=== PATIENT | female | born 1945 | race Two or more races ===

== ENCOUNTER 2023-02-15 18:28 | Outpatient (RCR) | payer MEDICARE, SELFPAY | END 2023-03-11 23:59 | disposition home or self-care (01) | LOC: MM 18:28 | PROVIDERS: PCP Internal Medicine; Visit Provider Internal Medicine | DX: Z51.81 Encounter for therapeutic drug level monitoring (principal); Z79.01 Long term (current) use of anticoagulants; I48.0 Paroxysmal atrial fibrillation | CPT/HCPCS: 85610; G0463 ==

== ENCOUNTER 2023-02-21 06:55 | Day surgery (SDC) | payer MEDICARE, SELFPAY ==
[2023-02-21 07:21] VITALS: BP 152/73; PULSE 59; RESP 16; TEMP 36.3; O2SAT 98
[2023-02-21] MEDS: 0.9 % SODIUM CHLORIDE 500 ML 15 ML IV (07:34)
[2023-02-21 07:53] LABS: Prothrombin Time 34.6 sec (9.0-11.6)
--- NOTE | 2023-02-21 08:59 | PC.NURSE ---
PT CANCELLED D/T INABILITY TO INTERROGATE PACEMAKER AND ELEVATED INR
== END 2023-02-21 08:45 | disposition home or self-care (01) ==
PROVIDERS: PCP Internal Medicine; Visit Provider Anesthesiology
PROC: (CPT 64635; principal; 2023-02-21 07:40)
DX: M47.816 Spondylosis without myelopathy or radiculopathy, lumbar region (principal); Z53.8 Procedure and treatment not carried out for other reasons; R79.1 Abnormal coagulation profile; Z95.0 Presence of cardiac pacemaker
CPT/HCPCS: 64635; 36415; 85610

== ENCOUNTER 2023-03-16 10:39 | Outpatient (RCR) | payer MEDICARE, SELFPAY | END 2023-04-11 17:14 | disposition home or self-care (01) | LOC: MM 10:39 | PROVIDERS: PCP Internal Medicine; Visit Provider Internal Medicine | DX: Z51.81 Encounter for therapeutic drug level monitoring (principal); Z79.01 Long term (current) use of anticoagulants; I48.0 Paroxysmal atrial fibrillation | CPT/HCPCS: 85610; G0463 ==

== ENCOUNTER 2023-04-07 13:44 | Outpatient (OUT) | payer MEDICARE, SELFPAY ==
[2023-04-07 14:02] LABS: Basophils Absolute Auto 0.1 10^3/uL (0.0-0.1); Basophils Percent Auto 0.9 % (0.2-2.0); Eosinophils Absolute Auto 0.2 10^3/uL (0.0-0.7); Eosinophils Percent Auto 3.1 % (0.9-7.0); Hemoglobin 10.6 g/dL (12.0-16.0); Immature Granulocytes Abs Auto 0.02 10^3/uL (0.00-0.03); Immature Granulocytes Pct Auto 0.3 % (0.0-0.5); Lymphocytes Absolute Auto 2.4 10^3/uL (1.2-3.8); Lymphocytes Percent Auto 30.6 % (20.5-60.0); Mean Corpuscular HGB Conc 31.2 g/dL (29.9-35.2); Mean Corpuscular Hemoglobin 24.9 pg (26.7-34.0); Mean Platelet Volume 8.7 fL (9.5-13.5); Monocytes Absolute Auto 0.7 10^3/uL (0.3-0.8); Monocytes Percent Auto 8.4 % (1.7-12.0); Neutrophils Absolute Auto 4.5 10^3/uL (1.4-6.5); Neutrophils Percent Auto 56.7 % (43.0-75.0); Platelet Count 282 10^3/uL (150-450); Red Blood Count 4.25 10^6/uL (4.20-5.40); Red Cell Distribution Width 17.5 % (11.0-15.0); White Blood Count 7.9 10^3/uL (4.0-11.0)
[2023-04-07 14:49] LABS: Alanine Aminotransferase 36 U/L (14-59); Albumin Globulin Ratio 0.8; Albumin Level 3.6 g/dL (3.4-5.0); Alkaline Phosphatase 96 U/L (46-116); Anion Gap 11.7; Aspartate Amino Transferase 28 U/L (15-37); BUN Creatinine Ratio 24.2; Bilirubin Total 0.4 mg/dL (0.2-1.0); Calcium 8.7 mg/dL (8.5-10.1); Carbon Dioxide 27.5 mmol/L (21.0-32.0); Chloride 104 mmol/L (98-107); Estimated GFR (African America >60 (>=60); Estimated GFR (Non-African Ame 57 (>=60); Globulin 4.4 g/dL; Glucose 102 mg/dL (74-106); Potassium 4.2 mmol/L (3.5-5.1); Sodium 139 mmol/L (136-145)
== END 2023-04-07 13:45 | disposition home or self-care (01) ==
LOC: LAB 13:46
PROVIDERS: PCP Internal Medicine; Visit Provider Internal Medicine
DX: I48.91 Unspecified atrial fibrillation (principal)
CPT/HCPCS: 36415; 80053; 85025; 85610

== ENCOUNTER 2023-04-11 08:18 | Day surgery (SDC) | payer MEDICARE, SELFPAY ==
[2023-04-11 08:45] VITALS: BP 139/73; PULSE 63; RESP 18; TEMP 36.5; O2SAT 97
[2023-04-11 08:56] LABS: INR 2.15; Prothrombin Time 21.8 sec (9.0-11.6)
[2023-04-11] MEDS: 0.9 % SODIUM CHLORIDE 500 ML 50 ML IV (09:04)
[2023-04-11] MEDS: BUPIVACAINE HCL 0.25% PF 25 MG/10 ML VIAL 4 ML INJ (09:25)
[2023-04-11] MEDS: LIDOCAINE HCL 2% 400 MG/20 ML MDV INJ (09:26)
[2023-04-11] MEDS: TRIAMCINOLONE ACETONIDE 40 MG/ML VIAL 80 MG INJ (09:26)
--- NOTE | 2023-04-11 09:35 | P.ON_ITS ---
Date of procedure: 04/11/23 Pre-op diagnosis: Lumbosacral spondylosis Post-op diagnosis: same Procedure: Procedure: Bilateral L4-5, L5-S1 radiofrequency ablation Medications: Bupivacaine 0.25% 6cc, kenalog 80mg, lidocaine 1% 5cc The patient was seen and examined in the preoperative holding area.? The site was marked.? Written informed consent was obtained and placed on the chart.? The patient was brought to the medical procedure unit and placed in the prone position.? A timeout was completed verifying correct patient, procedure, positioning, and special requirements.? The skin overlying the target points, the designated medial branch, were prepped and draped in the usual sterile fashion.? The target point was achieved with a 20-gauge 15 cm with a 10 mm curved active tip radiofrequency cannula under direct fluoroscopic visualization.? The needle was inserted at level L4 on the right side. Needle tip position was confirmed with lateral fluoroscopic position.? Motor stimulation was carried out at 2 Hz up to 5 volts with the absence of extremity activity.? This was repeated at level L5, S1 on right side.?? Sensory stimulation was carried out.? Concordant pain was realized at the above- mentioned sites.? Then radiofrequency lesioning was carried out times 90 seconds at 80 degrees times 2 lesions at each level.? The radiofrequency probe was removed prior to cannula removal.? The above-mentioned injectate was placed in 1 mL increments.? The needle was removed. The same procedure, with the same steps, was then completed on the left side at the same levels. Insertion sites were covered.? The patient was taken to the postoperative recovery area and monitored for an appropriate length of time before being found suitable for discharge in the company of a responsible adult. Anesthesia: Moderate Sedation Surgeon: Miguel Murphy Pathology: none sent Condition: stable Disposition: no change
[2023-04-11 09:42] VITALS: BP 120/63; PULSE 60; RESP 16; TEMP 36.7; O2SAT 96
[2023-04-11 09:45] VITALS: BP 111/55; PULSE 60; RESP 16; TEMP 36.7; O2SAT 98
--- NOTE | 2023-04-11 09:48 | PC.NURSE ---
When transferring from stretcher to wheelchair pt stated that she was unable to feel her legs and had difficulty bearing weight. Pt was assisted by 2 staff members to wheelchair. Dr Holly notified and stated this was ok.
--- NOTE | 2023-04-11 10:11 | PC.NURSE ---
Pt stood from wheelchair with minimal assistance, pt states numbness to legs is improving and she is able to stand unassisted.
--- NOTE | 2023-04-11 11:55 | PC.NURSE ---
Pacer interrogation completed by Radha Villalobos, from [facility]. She received call from [employer] [facility] that said no changes to pacer per report. Notified anesthesia team. Patient was given ok to be discharged at 1010a.
== END 2023-04-11 10:10 | disposition home or self-care (01) ==
LOC: SURGOUT 08:19
PROVIDERS: PCP Internal Medicine; Visit Provider Anesthesiology
DX: M47.817 Spondylosis without myelopathy or radiculopathy, lumbosacral region (principal); I48.91 Unspecified atrial fibrillation
CPT/HCPCS: 36415; 64635; 64636; 85610

== ENCOUNTER 2023-04-12 10:04 | Outpatient (RCR) | payer MEDICARE, SELFPAY | END 2023-05-12 17:48 | disposition home or self-care (01) | LOC: MM 10:04 | PROVIDERS: PCP Internal Medicine; Visit Provider Internal Medicine | DX: Z51.81 Encounter for therapeutic drug level monitoring (principal); Z79.01 Long term (current) use of anticoagulants; I48.0 Paroxysmal atrial fibrillation ==

== ENCOUNTER 2023-04-13 14:00 | Outpatient (OUT) | payer MEDICARE, SELFPAY ==
[2023-04-13 15:06] LABS: Percent Iron Saturation 8.1 %
[2023-04-14 05:07] LABS: Transferrin 358 mg/dL (192-364)
== END 2023-04-13 14:01 | disposition home or self-care (01) ==
PROVIDERS: PCP Internal Medicine; Visit Provider Internal Medicine
DX: D64.9 Anemia, unspecified (principal)
CPT/HCPCS: 36415; 82607; 82728; 82746; 83540; 83550; 84466

== ENCOUNTER 2023-05-11 09:24 | Outpatient (OUT) | payer MEDICARE, SELFPAY ==
--- NOTE | 2023-05-11 09:08 | P.CN_ITS ---
Consult Note: HPI Data of Consult Patient: known to practice within the last 3 years Requesting Physician: KATHERINE EUCEDA NP Primary Care Provider: Shaikh Cira MD Consult Narrative Reason for consult: Bilateral L4-5, L5-S1 radiofrequency ablation f/u Narrative: Breann yee pleasant 77 year old female presents for follow up on chronic low back pain. Patient underwent a bilateral L4/5 L5/S1 RFA on 04/11/23. Patient reporting >90% pain and functional improvement as a result of this procedure. Patient would like to discuss chronic left shoulder pain today. cc:: CC: KATHERINE EUCEDA NP Review of Systems ROS Status of ROS 10 or more systems reviewed and unremarkable except as noted in history and below Musculoskeletal Reports: extremity pain, joint pain and limited range of motion PFSH PFSH Medical History Surgical History Meds Home Medications and Allergies Home Medications Medication Instructions Recorded Confirmed Type cholecalciferol (vitamin D3) 125 5,000 unit PO DAILY 02/16/23 04/11/23 History mcg (5,000 unit) tablet (Vitamin D3) flecainide 100 mg tablet 100 mg PO Q12H 02/16/23 04/11/23 History omeprazole 40 mg capsule,delayed 40 mg PO DAILY 02/16/23 04/11/23 History release spironolactone 25 mg tablet 25 mg PO DAILY 02/16/23 04/11/23 History (Aldactone) verapamil 180 mg tablet,extended 180 mg PO DAILY 02/16/23 04/11/23 History release (Calan SR) warfarin 3 mg tablet (Jantoven) 3 mg PO DAILY 02/16/23 04/11/23 History Allergies Allergy/AdvReac Type Severity Reaction Status Date / Time No Known Drug Allergies Allergy Verified 04/11/23 08:40 Exam Constitutional Documenting provider has reviewed patient's vital signs: yes Common normals: no apparent distress, oriented x3, healthy appearing, alert and well nourished General appearance: cooperative Nutritional appearance: overweight HENMT Common normals: normocephalic, hearing grossly normal bilaterally and moist oral mucous membranes Head and scalp: normocephalic Eye Common normals: PERRL Pupil: PERRL Neck & C-Spine Common normals: full ROM General: normal visual inspection Chest Common normals: inspection of chest normal Respiratory Common normals: normal respiratory effort, no retractions and no use of acc essory muscles Back & Pelvis Common normals: no CVA tenderness, thoracic and lumbar spine normal to inspection, no thoracic nor lumbar tenderness, thoraco-lumbar ROM normal and straight leg raise negative bilaterally Sacroiliac joints: SI joints normal Extremity Common normals: normal to inspection Left upper extremity: shoulder joint (no pain to sternoclavicular, AC, or glenohumeral joint with palpation) Left shoulder joint: ROM (limited and pain wi th ROM) Extremity image (front): 1. constant pain, pain worse with raising and rotation of arm Extremity image (back): 1. pain with palpation and when arm raised over shoulder Neuro Common normals: oriented x3, CN's II-XII intact bilaterally, moves all extremities, no focal motor deficits, no sensory deficits noted and deep tendon reflexes 2+ bilaterally Sensorium/orientation: alert Speech: speech normal Gait (neuro): normal gait Motor exam: strength 5/5 throughout and no movement abnormalities noted Other: sensation intact. no upper or lower numbness/tingling or weakness Psych Common normals: mental status grossly normal, thought process normal, cooperative, affect normal, speech normal and activity/motor behavior normal Speech: normal speech Thought process: normal thought process Results Additional Findings Additional findings: I have checked an OARRS report on this patient today and there are no aberrancies noted in the prescribing history.?? A drug screen was completed and reviewed within the last year, and if there has not been a drug screen completed we ordered one today to monitor higher risk, state monitored pain medication use. As part of providing excellent, safe, comprehensive care, the following was co mpleted at our patient's visit: 1. A medication reconciliation and review to ensure accurate knowledge of current/active medications, including asking our patients to inform us about any [id number] medications or herbal remedies/nutritional supplements/alternative remedies. 2. A review to specifically ensure our patients have had annual screening for: elevated body mass index (BMI), tobacco use, screening for depression, and screening for unhealthy alcohol use. When screening is concerning, patients are provided with education and the specific recommendation to discuss the concerning health issue and treatment options with their primary care provider. Assessment and Plan Assessment and Plan (1) Chronic anticoagulation: (2) Lumbar spondylosis: (3) Left shoulder pain: Assessment and Plan: chronic left shoulder pain, follows with a shoulder specialist. planning to see them end of june. Based on physical exam could benefit from left suprascapular and axillary nerve block & thermal RFA. will discuss at f/u appointment Plan >90% pain relief and functional improvement in low back pain, today 0/10 pain since RFA. continue conservative care for shoulder pain continue to follow up with shoulder specialist consider left suprascapular and axillary nerve block and thermal RFA in the future f/u 3 months to discuss care plan
== END 2023-05-11 09:25 | disposition home or self-care (01) ==
LOC: PM 09:24
PROVIDERS: PCP Internal Medicine; Visit Provider Nurse Practitioner
DX: M47.816 Spondylosis without myelopathy or radiculopathy, lumbar region (principal); M25.512 Pain in left shoulder; Z79.01 Long term (current) use of anticoagulants
CPT/HCPCS: G0463

== ENCOUNTER 2023-05-13 09:45 | Outpatient (RCR) | payer MEDICARE, SELFPAY | END 2023-06-10 17:07 | disposition home or self-care (01) | LOC: MM 09:45 | PROVIDERS: PCP Internal Medicine; Visit Provider Internal Medicine | DX: Z51.81 Encounter for therapeutic drug level monitoring (principal); Z79.01 Long term (current) use of anticoagulants; I48.0 Paroxysmal atrial fibrillation ==

== ENCOUNTER 2023-06-08 12:49 | Outpatient (RCR) | payer MEDICARE, SELFPAY | END 2023-08-03 17:02 | disposition home or self-care (01) | LOC: PT 12:49 | PROVIDERS: PCP Internal Medicine; Visit Provider Nurse Practitioner | DX: M25.512 Pain in left shoulder (principal) | CPT/HCPCS: 97010; 97012; 97110; 97140; 97163 ==

== ENCOUNTER 2023-06-13 03:48 | Outpatient (RCR) | payer MEDICARE, SELFPAY | END 2023-07-12 17:48 | disposition home or self-care (01) | LOC: MM 03:48 | PROVIDERS: PCP Internal Medicine; Visit Provider Internal Medicine | DX: Z51.81 Encounter for therapeutic drug level monitoring (principal); Z79.01 Long term (current) use of anticoagulants; I48.0 Paroxysmal atrial fibrillation ==

== ENCOUNTER 2023-07-13 00:45 | Outpatient (RCR) | payer MEDICARE, SELFPAY | END 2023-08-11 16:53 | disposition home or self-care (01) | LOC: MM 00:45 | PROVIDERS: PCP Internal Medicine; Visit Provider Internal Medicine | DX: Z51.81 Encounter for therapeutic drug level monitoring (principal); Z79.01 Long term (current) use of anticoagulants; I48.0 Paroxysmal atrial fibrillation ==

== ENCOUNTER 2023-07-14 12:50 | Outpatient (OUT) | payer MEDICARE, SELFPAY ==
--- NOTE | 2023-07-14 12:55 | P.CN_ITS ---
Consult Note: HPI Data of Consult Patient: known to practice within the last 3 years Requesting Physician: Claire Clement NP Primary Care Provider: Shaikh Cira MD Consult Narrative Reason for consult: f/u Narrative: Breann Starks a pleasant 77 year old female presents for evaluation and management of chronic left shoulder and left shoulder blade/bicep pain post surgical intervention. Today rating pain 8/10. Has been seen by orthopedics who did not see benefit to interventions and participated in PT without benefit. cc:: CC: Claire Clement NP Review of Systems ROS Status of ROS 10 or more systems reviewed and unremarkable except as noted in history and below Musculoskeletal Reports: extremity pain, joint pain and limited range of motion PFSH PFSH Medical History Fatty liver ?K76.0 - Fatty (change of) liver, not elsewhere classified (ICD-10) Hiatal hernia ?K44.9 - Diaphragmatic hernia without obstruction or gangrene (ICD-10) History of shingles ?Z86.19 - Personal history of other infectious and parasitic diseases (ICD- 10) Irregular heart beat ?I49.9 - Cardiac arrhythmia, unspecified (ICD-10) Low back pain ?M54.50 - Low back pain, unspecified (ICD-10) Osteoarthritis ?M19.90 - Unspecified osteoarthritis, unspecified site (ICD-10) Pacemaker ?Z95.0 - Presence of cardiac pacemaker (ICD-10) Surgical History H/O arthroscopy of knee ?Z98.890 - Other specified postprocedural states (ICD-10) H/O arthroscopy of shoulder ?Z98.890 - Other specified postprocedural states (ICD-10) H/O cardiac catheterization ?Z98.890 - Other specified postprocedural states (ICD-10) History of appendectomy ?Z90.49 - Acquired absence of other specified parts of digestive tract (ICD- 10) History of colonoscopy ?Z98.890 - Other specified postprocedural states (ICD-10) History of total knee arthroplasty ?Z96.659 - Presence of unspecified artificial knee joint (ICD-10) S/P rotator cuff repair ?Z98.890 - Other specified postprocedural states (ICD-10) S/P YANELI-BSO ?Z90.710 - Acquired absence of both cervix and uterus (ICD-10) ?Z90.722 - Acquired absence of ovaries, bilateral (ICD-10) ?Z90.79 - Acquired absence of other genital organ(s) (ICD-10) Meds Home Medications and Allergies Home Medications Medication Instructions Recorded Confirmed Type cholecalciferol (vitamin D3) 125 5,000 unit PO DAILY 02/16/23 04/11/23 History mcg (5,000 unit) tablet (Vitamin D3) flecainide 100 mg tablet 100 mg PO Q12H 02/16/23 04/11/23 History omeprazole 40 mg capsule,delayed 40 mg PO DAILY 02/16/23 04/11/23 History release spironolactone 25 mg tablet 25 mg PO DAILY 02/16/23 04/11/23 History (Aldactone) verapamil 180 mg tablet,extended 180 mg PO DAILY 02/16/23 04/11/23 History release (Calan SR) apixaban 5 mg tablet (Eliquis) 5 mg PO BID 05/11/23 05/11/23 History Allergies Allergy/AdvReac Type Severity Reaction Status Date / Time No Known Drug Allergies Allergy Verified 04/11/23 08:40 Exam Constitutional Documenting provider has reviewed patient's vital signs: yes Common normals: no apparent distress, oriented x3, healthy appearing, alert and well nourished General appearance: cooperative Nutritional appearance: overweight HENMT Common normals: normocephalic, hearing grossly normal bilaterally and moist oral mucous membranes Head and scalp: normocephalic Eye Common normals: PERRL Pupil: PERRL Neck & C-Spine Common normals: full ROM General: normal visual inspection Chest Common normals: inspection of chest normal Respiratory Common normals: normal respiratory effort, no retractions and no use of accessory muscles Back & Pelvis Common normals: no CVA tenderness, thoracic and lumbar spine normal to inspection, no thoracic nor lumbar tenderness and thoraco-lumbar ROM normal Lumbar spine/lower back: straight leg raise negative bilaterally Sacroiliac joints: SI joints normal Other: intermittent weakness/numbness/tingling BLE Extremity Common normals: normal to inspection Left upper extremity: shoulder joint (no pain to sternoclavicular, AC, or glenohumeral joint with palpation) Left shoulder joint: ROM (limited and pain with ROM) Neuro Common normals: oriented x3, CN's II-XII intact bilaterally, moves all extremities, no focal motor deficits, no sensory deficits noted and deep tendon reflexes 2+ bilaterally Sensorium/orientation: alert Speech: speech normal Gait (neuro): normal gait Motor exam: strength 5/5 throughout and no movement abnormalities noted Other: sensation intact. no upper or lower numbness/tingling or weakness Psych Common normals: mental status grossly normal, thought process normal, cooperative, affect normal, speech normal and activity/motor behavior normal Speech: normal speech Thought process: normal thought process Results Additional Findings Additional findings: I have checked an OARRS report on this patient today and there are no aberrancies noted in the prescribing history.?? A drug screen was completed and reviewed within the last year, and if there has not been a drug screen completed we ordered one today to monitor higher risk, state monitored pain medication use. As part of providing excellent, safe, comprehensive care, the following was completed at our patient's visit: 1. A medication reconciliation and review to ensure accurate knowledge of current/active medications, including asking our patients to inform us about any [id number] medications or herbal remedies/nutritional supplements/alternative remedies. 2. A review to specifically ensure our patients have had annual screening for: elevated body mass index (BMI), tobacco use, screening for depression, and screening for unhealthy alcohol use. When screening is concerning, patients are provided with education and the specific recommendation to discuss the guillermo rning health issue and treatment options with their primary care provider. Assessment and Plan Assessment and Plan (1) Lumbar spondylosis: (2) Chronic anticoagulation: (3) Left shoulder pain: (4) Lumbar stenosis with neurogenic claudication: Plan continue PT for left shoulder pain discussed left suprascapular and axially nerve block working towards thermal RFA, declining at this time transdermal therapeutics cream ordered for left shoulder pain, apply TID-QID to affected areas f/u 3 months, sooner if needed
== END 2023-07-14 12:51 | disposition home or self-care (01) ==
LOC: PM 12:50
PROVIDERS: PCP Internal Medicine; Visit Provider Nurse Practitioner
DX: M47.816 Spondylosis without myelopathy or radiculopathy, lumbar region (principal); Z79.01 Long term (current) use of anticoagulants; M25.512 Pain in left shoulder; M48.062 Spinal stenosis, lumbar region with neurogenic claudication
CPT/HCPCS: G0463

== ENCOUNTER 2023-07-26 14:24 | Outpatient (OUT) | payer MEDICARE, SELFPAY ==
--- NOTE | 2023-07-26 14:27 | CT_ITS ---
The [address] [address] Patient Name: MAXIMUS HERRMANN MRN: [id number] date: 1945 Sex: F Assigned Patient Location: CT Current Patient Location: CT Accession/Order Number: [id number] Exam Date: 07/26/2023 14:41 Report Date: 07/26/2023 23:18 At the request of: MABEL DE LEÓN Procedure: CT lumbar spine wo con EXAMINATION: CT lumbar spine wo con HISTORY: Lumbar Stenosis With Neuro Claudication ; chronic low back pain COMPARISON: No relevant comparison available. TECHNIQUE: Axial, Coronal, and Sagittal images were created without IV contrast. Dose reduction techniques were achieved by using automated exposure control and/or adjustment of mA and/or kV according to patient size and/or use of iterative reconstruction technique. FINDINGS: VERTEBRAL BODIES: Mild grade 1 anterolisthesis of L4 on 5. No fracture or bone lesion. FACET JOINTS: Moderate degenerative facet arthropathy L3-L4 through L5-S1 with bone encroachment on the neural foramen. DISCS: T12-L1 disc space narrowing with posterior disc osteophyte complex causing moderate central canal narrowing and likely foramen narrowing. Multilevel mild-moderate central canal or foraminal narrowing of the lumbar spine. Marked central canal and foramen narrowing at L4-L5 secondary to grade 1 anterior listhesis and prominent posterior disc bulging. CENTRAL CANAL: No evidence of hemorrhage. PARASPINAL AREA: No visible mass. CT/CT lumbar spine wo con IMPRESSION: 1. Multilevel central canal and foraminal narrowing secondary to degenerative disc disease and facet arthropathy; marked central canal and foramen narrowing at L4-L5. Consider MRI for further evaluation. Electronically authenticated by: PAULA BROWN Date: 07/26/2023 23:18
== END 2023-07-26 14:25 | disposition home or self-care (01) ==
LOC: CT 14:24
PROVIDERS: PCP Internal Medicine; Visit Provider Nurse Practitioner
DX: M48.062 Spinal stenosis, lumbar region with neurogenic claudication (principal)
CPT/HCPCS: 72131

== ENCOUNTER 2023-08-03 12:22 | Outpatient (OUT) | payer MEDICARE, SELFPAY ==
--- NOTE | 2023-08-03 12:51 | P.CN_ITS ---
Consult Note: HPI Data of Consult Patient: known to practice within the last 3 years Requesting Physician: Claire Clement NP Primary Care Provider: Shaikh Cira MD Consult Narrative Reason for consult: f/u Narrative: Breann Starks a pleasant 77 year old female presents for evaluation and management of chronic low back pain with radiculopathy and NC. Patient rating pain 8/10 today in low back. Numbness tingling weakness to bilateral legs. Here to review CT scan and formulate plan cc:: CC: Claire Clement NP Review of Systems ROS Status of ROS 10 or more systems reviewed and unremarkable except as noted in history and below PFSH PFS Medical History Fatty liver ?K76.0 - Fatty (change of) liver, not elsewhere classified (ICD-10) Hiatal hernia ?K44.9 - Diaphragmatic hernia without obstruction or gangrene (ICD-10) History of shingles ?Z86.19 - Personal history of other infectious and parasitic diseases (ICD- 10) Irregular heart beat ?I49.9 - Cardiac arrhythmia, unspecified (ICD-10) Low back pain ?M54.50 - Low back pain, unspecified (ICD-10) Osteoarthritis ?M19.90 - Unspecified osteoarthritis, unspecified site (ICD-10) Pacemaker ?Z95.0 - Presence of cardiac pacemaker (ICD-10) Surgical History H/O arthroscopy of knee ?Z98.890 - Other specified postprocedural states (ICD-10) H/O arthroscopy of shoulder ?Z98.890 - Other specified postprocedural states (ICD-10) H/O cardiac catheterization ?Z98.890 - Other specified postprocedural states (ICD-10) History of appendectomy ?Z90.49 - Acquired absence of other specified parts of digestive tract (ICD- 10) History of colonoscopy ?Z98.890 - Other specified postprocedural states (ICD-10) History of total knee arthroplasty ?Z96.659 - Presence of unspecified artificial knee joint (ICD-10) S/P rotator cuff repair ?Z98.890 - Other specified postprocedural states (ICD-10) S/P YANELI-BSO ?Z90.710 - Acquired absence of both cervix and uterus (ICD-10) ?Z90.722 - Acquired absence of ovaries, bilateral (ICD-10) ?Z90.79 - Acquired absence of other genital organ(s) (ICD-10) Meds Home Medications and Allergies Home Medications Medication Instructions Recorded Confirmed Type cholecalciferol (vitamin D3) 125 5,000 unit PO DAILY 02/16/23 04/11/23 History mcg (5,000 unit) tablet (Vitamin D3) flecainide 100 mg tablet 100 mg PO Q12H 02/16/23 04/11/23 History omeprazole 40 mg capsule,delayed 40 mg PO DAILY 02/16/23 04/11/23 History release spironolactone 25 mg tablet 25 mg PO DAILY 02/16/23 04/11/23 History (Aldactone) verapamil 180 mg tablet,extended 180 mg PO DAILY 02/16/23 04/11/23 History release (Calan SR) apixaban 5 mg tablet (Eliquis) 5 mg PO BID 05/11/23 05/11/23 History Allergies Allergy/AdvReac Type Severity Reaction Status Date / Time No Known Drug Allergies Allergy Verified 04/11/23 08:40 Exam Constitutional Documenting provider has reviewed patient's vital signs: yes Common normals: no apparent distress, oriented x3, healthy appearing, alert and well nourished General appearance: cooperative Nutritional appearance: overweight HENNY Common normals: normocephalic, hearing grossly normal bilaterally and moist oral mucous membranes Head and scalp: normocephalic Eye Common normals: PERRL Pupil: PERRL Neck & C-Spine Common normals: full ROM General: normal visual inspection Chest Common normals: inspection of chest normal Respiratory Common normals: normal respiratory effort, no retractions and no use of accessory muscles Back & Pelvis Common normals: no CVA tenderness, thoracic and lumbar spine normal to inspection, no thoracic nor lumbar tenderness and thoraco-lumbar ROM normal Lumbar spine/lower back: straight leg raise negative bilaterally Sacroiliac joints: SI joints normal Other: intermittent weakness/numbness/tingling BLE Extremity Common normals: normal to inspection Left upper extremity: shoulder joint (no pain to sternoclavicular, AC, or glenohumeral joint with palpation) Left shoulder joint: ROM (limited and pain with ROM) Neuro Common normals: oriented x3, CN's II-XII intact bilaterally, moves all extremities, no focal motor deficits, no sensory deficits noted and deep tendon reflexes 2+ bilaterally Sensorium/orientation: alert Speech: speech normal Gait (neuro): normal gait Motor exam: strength 5/5 throughout and no movement abnormalities noted Other: sensation intact. no upper or lower numbness/tingling or weakness Psych Common normals: mental status grossly normal, thought process normal, cooperative, affect normal, speech normal and activity/motor behavior normal Speech: normal speech Thought process: normal thought process Assessment and Plan Assessment and Plan (1) Lumbar stenosis with neurogenic claudication: (2) Lumbar spondylosis: (3) Chronic anticoagulation: Plan based on CT findings, patient interest, and recommendation for MRI we will proceed with MRI of low back without contrast Bilateral L4-5 TFESI under fluoroscopy with Dr Murphy start tramadol 50mg QD PRN moderate to severe pain for 1 week, if needed can increase to 100mg at next fill f/u after TFESI
== END 2023-08-03 12:23 | disposition home or self-care (01) ==
LOC: PM 12:32
PROVIDERS: PCP Internal Medicine; Visit Provider Nurse Practitioner
DX: M48.062 Spinal stenosis, lumbar region with neurogenic claudication (principal); M47.816 Spondylosis without myelopathy or radiculopathy, lumbar region; Z79.01 Long term (current) use of anticoagulants
CPT/HCPCS: G0463

== ENCOUNTER 2023-10-20 13:31 | Outpatient (OUT) | payer MEDICARE, SELFPAY ==
--- OUTSIDE RECORDS SUMMARY | 2023-10-20 13:36 | XMS_ITS | CCD ---
Author Name Unknown Address [id number] [place] [address] Organization [facility] Care Team Providers Care Track Supervisor Name Role Phone ZANE MCGUIRE Admitting Unavailable YANCY MAHAN Referring Unavailable LUISANA FISHER Primary Care Unavailable ZANE MCGUIRE Attending Unavailable YANCY MAHAN Surgeon Unavailable FL Procedure Practitioner UnavailHong Ambrose Unavailable Barbara Esposito Attending Unavailable FISHER ., DR LUISANA Herbert Primary Care Unavailable FISHER ., DR LUISANA Herbert Admitting Unavailable FISHER ., DR LUISANA Herbert Attending Unavailable FISHER ., DR LUISANA Herbert Consulting Unavailable FISHER ., DR LUISANA Herbert Primary Care Unavailable FAWWAAlysa, SAHU H Attending Unavailable FAWJUAND, SAHU H Admitting Unavailable FAWWAD, SAHU H Admitting Unavailable FAWWAD, SAHU H Attending Unavailable FISHER ., DR LUISANA Herbert Primary Care Unavailable FISHER ., DR LUISANA Herbert Admitting Unavailable FISHER ., DR LUISANA Herbert Primary Care Unavailable FISHER ., DR LUISANA Herbert Attending Unavailable FISHER ., DR LUISANA Herbert Consulting Unavailable FISHER ., DR LUISANA Herbert Admitting Unavailable FISHER ., DR LUISANA Herbert Primary Care Unavailable FISHER ., DR LUISANA Herbert Attending Unavailable FISHER ., DR LUISANA Herbert Consulting Unavailable FAWWAD, SAHU H Attending Unavailable FAWWAD, SAHU H Admitting Unavailable FISHER ., DR LUISANA Herbert Primary Care Unavailable FAWWAD, SAHU H Attending Unavailable FAWWAD, SAHU H Admitting Unavailable FISHER ., DR LUISANA Herbert Primary Care Unavailable FISHER ., DR LUISANA Herbert Admitting Unavailable FISHER ., DR LUISANA Herbert Attending Unavailable FISHER ., DR LUISANA Herbert Consulting Unavailable FISHER ., DR LUISANA Herbert Primary Care Unavailable ZIEBER, DR PAULA R Consulting Unavailable SAMSA ., LUIZ Admitting Unavailable SAMSA ., LUIZ Attending Unavailable SAMSA ., LUIZ Consulting Unavailable FISHER ., DR LUISANA Herbert Primary Care Unavailable FAWWAD, SAHU H Attending Unavailable FAWWAD, SAHU H Admitting Unavailable FISHER ., DR LUISANA Herbert Primary Care Unavailable FAWWAD, SAHU H Attending Unavailable FAWWAD, SAHU H Admitting Unavailable FISHER ., DR LUISANA Herbert Primary Care Unavailable FAWWAD, SAHU H Attending Unavailable FAWWAD, SAHU H Admitting Unavailable FISHER ., DR LUISANA Herbert Primary Care Unavailable FAWWAD, SAHU H Attending Unavailable FAWWAD, SAHU H Admitting Unavailable FISHER ., DR LUISANA Herbert Primary Care Unavailable FAWWAD, SAHU H Attending Unavailable FAWWAD, SAHU H Admitting Unavailable REQUEST, DR NONE LISTED Primary Care Unavaila ble FISHER ., DR LUISANA Herbert Primary Care Unavailable FAWWAD, SAHU H Attending Unavailable FAWWAD, SAHU H Admitting Unavailable MISC, DR ODELL Admitting Unavailable MISC, DR ODELL Attending Unavailable MISC, DR ODELL Consulting Unavailable FISHER ., DR LUISANA Herbert Primary Care Unavailable SAMSA ., LUIZ Admitting Unavailable SAMSA ., LUIZ Attending Unavailable ZIEBER, DR PAULA Bishop Consulting Unavailable FISHER ., DR LUISANA Herbert Primary Care Unavailable SAMSA ., LUIZ Consulting Unavailable GIEDRAITIS, ANDRIUS Admitting Unavailable GIEDRAITIS, ANDRIUS Attending Unavailable STEPHANIE, DR PAULA Bishop Consulting Unavailable REQUEST, NONE LISTED Primary Care Unavaila ble GIEDRAITIS, ANDRIUS Consulting Unavailable FISHER ., DR LUISANA Herbert Admitting Unavailable FISHER ., DR LUISANA Herbert Primary Care Unavailable FISHER ., DR LUISANA Herbert Attending Unavailable FISHER ., DR LUISANA Herbert Consulting Unavailable STEPHANIE, DR PAULA Bishop Consulting Unavailable HAY ., DR DE LEON Admitting Unavailable HAY ., DR DE LEON Attending Unavailable FISHER ., DR LUISANA Herbert Primary Care Unavailable GRECHIRENE ., DANIELLE SHAIKH Consulting Unavailpriyanka herbert RIVER ., RENÉE Admitting Unavailable RIVER ., RENÉE Attending Unavailable WEST, DR HONG Morgan Consulting Unavailable FISHER ., DR LUISANA Herbert Primary Care Unavailable GRECHNY ., DANIELLE SHAIKH Consulting UnavailSALOME Mondragon Consulting Unavailable RIVER ., RENÉE Consulting Unavailable JBARA, YASER Consulting Unavailable SAMSA ., LUIZ Admitting Unavailable SAMSA ., LUIZ Attending Unavailable SAMSA ., LUIZ Consulting Unavailable FISHER ., DR LUISANA Herbert Primary Care Unavailable FISHER ., DR LUISANA Herbert Admitting Unavailable FISHER ., DR LUISANA Herbert Primary Care Unavailable FISHER ., DR LUISANA Herbert Attending Unavailable FISHER ., DR LUISANA Herbert Consulting Unavailable GIEDRAITIS, ANDRIUS Consulting Unavailable GIEDRAITIS, ANDRIUS Admitting Unavailable GIEDRAITIS, ANDRIUS Attending Unavailable HERSON CANTU Primary Care Unavailable FISHER ., DR LUISANA Herbert Primary Care Unavailable SHAIKH Kymberly DENIS Attending Unavailable SHAIKH Kymberly DENIS Admitting Unavailable SAMSA ., LUIZ Admitting Unavailable SAMSA ., LUIZ Attending Unavailable SAMSA ., LUIZ Consulting Unavailable FISHER ., DR LUISANA Herbert Primary Care Unavailable Giedraitis , Miguel Sainz Attending Unavailable Giedlobito CUBA, Miguel Sainz Attending Unavailable YANCY MAHAN Attending Unavailable YANCY MAHAN Attending Unavailable YANCY MAHAN Referring Unavailable CECILIO MEDINA Attending Unavailable SUE KAUR Attending Unavailable YANCY MAHAN Referring Unavailable THANG Clement Attending Provider MD Janice Denis Primary Care Provider THANG Clement Attending Provider [phone] SHAIKH DENIS Attending Unavailable SHAIKH DENIS Attending Unavailable Shaikh Denis MD Primary Care Provider [phone] Claire Clement Admitting Unavailable Shaikh Denis Primary Care Unavailable Claire Clement Attending Unavailable Shaikh Denis Primary Care Unavailable Claire Clement Attending Unavailable Claire Clement Admitting Unavailable Allergies Allergy Classification Reported Allergen(s) Allergy Type Date of Onset Reaction(s) Facility (1 source) ; Translations: [] Propensity to adverse reactions (disorder) 2 [facility] Repository (2 sources) NSAIDs Propensity to adverse reactions HEART ISSUES [facility] Other (1 source) meloxicam; Translations: [Mobic] Drug Allergy [facility] Repository (1 source) No Known Medication Allergies; Translations: [No Known Medication Allergies] Propensity to adverse reactions (disorder) [facility] Repository (1 source) Digoxin; Translations: [DIGOXIN] Drug Allergy [facility] Repository Medications Current Medications Medication Drug Class(es) Dates Sig (Normalized) Sig (Original) apixaban 5 mg oral tablet (1 source) Factor Xa Inhibitor take 1 tablet by mouth in the morning apixaban (Eliquis) 5 MG tablet Take 5 mg by mouth in the morning and 5 mg before bedtime. 0 Active ascorbic acid 100 mg oral tablet (1 source) Vitamin C take 1 tablet by mouth in the morning Ascorbic Acid (vitamin C) 100 MG tablet Take 100 mg by mouth in the morning. 0 Active 120 actuat budesonide 0.16 mg/actuat / formoterol fumarate 0.0045 mg/actuat metered dose inhaler (2 sources) Corticosteroid, beta2-Adrenergic Agonist take 2 puff(s) by inhalation twice daily Symbicort 160-4.5 MCG/ACT 2 puffs Inhalation Twice a day Active Centrum Silver (2 sources) Centrum Silver [place] *please review for potential _update for e-prescription and drug interaction check* Active flecainide acetate 50 mg oral tablet (3 sources) Antiarrhythmic take 1 tablet by mouth once daily flecainide (Tambocor) 50 MG tablet Take 50 mg by mouth 1 (one) time each day 0 Active furosemide 20 mg oral tablet (2 sources) Loop Diuretic take 1 tablet by mouth every twenty-four hours Furosemide 20 MG 1 tablet Orally Once a day Active gabapentin 300 mg oral capsule (1 source) Anti-epileptic Agent Start: 09-06-20 End: 12-05-19 24 take 1 capsule by mouth at bedtime gabapentin (Neurontin) 300 MG capsule Indications: Chronic bilateral low back pain with bilateral sciatica Take 1 capsule (300 mg) by mouth at bedtime 30 capsule 2 09/06/2023 12/05/2023 Active hydroCHLOROthiazide 25 mg oral tablet (2 sources) Thiazide Diuretic take 1 tablet by mouth every twenty-four hours hydroCHLOROthiazide 25 MG 1 tablet Orally Once a day Active Multiple Vitamins-Minerals (CENTRUM SILVER 50+WOMEN PO) (1 source) take 1 tablet by mouth in the morning Multiple Vitamins-Minerals (CENTRUM SILVER 50+WOMEN PO) Take 1 tablet by mouth in the morning. 0 Active omeprazole 40 mg delayed release oral capsule (3 sources) Proton Pump Inhibitor Start: 10-13-19 take 1 capsule by mouth once daily omeprazole (PriLOSEC) [address] capsule Indications: Peptic ulcer, site unspecified, unspecified as acute or chronic, without hemorrhage or perforation , Peptic ulcer TAKE 1 CAPSULE BY MOUTH EVERY DAY 90 capsule 0 10/13/2023 Active take 1 capsule by mo ut every twenty-four hours Omeprazole 40 MG 1 capsule Orally Once a day Active potassium chloride 10 meq extended release oral capsule (2 sources) take 1 capsule by mouth every twenty-four hours Potassium Chloride 10 MEQ 1 capsule with food Orally Once a day Active spironolactone 25 mg oral tablet (1 source) Aldosterone Antagonist take 1 tablet by mouth in the morning spironolactone (Aldactone) 25 MG tablet Take 25 mg by mouth in the morning. 0 Active 24 hr verapamil hydrochloride 180 mg extended release oral capsule (3 sources) Calcium Channel Ozzy Start: End: 024 take 1 capsule by mouth every twenty-four hours in the morning verapamil ER (Verelan) 180 MG 24 hr capsule Take 360 mg by mouth in the morning. 0 02/14/2023 02/14/2024 Active [facility]-four hours Verapamil HCl ER 360 MG 1 capsule Orally Once a day Active Vitamin C 500 MG (2 sources) Vitamin C 500 MG Orally Active warfarin sodium 3 mg oral tablet (2 sources) Vitamin K Antagonist take 1 tablet by mouth every twenty-four hours Warfarin Sodium 3 MG 1 tablet Orally Once a day Active Problems Active Problems Problem Classification Problem Date Documented Date Episodic/Chronic Cardiac dysrhythmias (11 sources) Unspecified atrial fibrillation; Translations: [Paroxysmal atrial fibrillation] Onset: 2 Chronic Chronic obstructive pulmonary disease and bronchiectasis (9 sources) Chronic obstructive pulmonary disease, unspecified; Translations: [Centrilobular emphysema] Onset: 2 Chronic Conduction disorders (3 sources) Presence of cardiac pacemaker; Translations: [Encounter for checking and testing of cardiac pacemaker pulse generator [battery]] Onset: 3 Chronic Congestive heart failure; nonhypertensive (3 sources) Chronic diastolic (congestive) heart failure; Translations: [Unspecified diastolic (congestive) heart failure] Onset: 3 Chronic Coronary atherosclerosis and other heart disease (4 sources) Atherosclerotic heart disease of [place] coronary artery without angina pectoris; Translations: [Coronary atherosclerosis] Onset: 2 Chronic Disorders of lipid metabolism (1 source) Hyperlipidemia, unspecified; Translations: [HYPERLIPIDEMIA UNSPECIFIED] Onset: 3 Chronic Essential hypertension (3 sources) Essential (primary) hypertension; Translations: [Essential hypertension] Onset: 2 Chronic Gastroduodenal ulcer (except hemorrhage) (1 source) Peptic ulcer; Translations: [Peptic ulcer, site unspecified, unspecified as acute or chronic, without hemorrhage or perforation] Onset: 3 09-06-2023 Chronic Headache; including migraine (3 sources) Headache; including migraine; Translations: [HEADACHE UNSPECIFIED] Onset: 3 Hepatitis (6 sources) Nonalcoholic steatohepatitis; Translations: [Nonalcoholic steatohepatitis (LOJA)] Onset: 1 Resolved: 2 Chronic Hypertension with complications and secondary hypertension (1 source) Hypertensive heart disease with heart failure; Translations: [HTN HEART DISEASE W/HEART FAIL] Onset: 3 Chronic Nonspecific chest pain (1 source) Chest pain, unspecified; Translations: [CHEST PAIN UNSPECIFIED] Onset: 3 Episodic Nutritional deficiencies (2 sources) [place]; Translations: [[place]] Onset: 2 Chronic Osteoarthritis (4 sources) Arthritis of acromioclavicular joint; Translations: [Primary osteoarthritis, right shoulder] Onset: 3 09-06-2023 Chronic Other aftercare (4 sources) Encounter for therapeutic drug level monitoring; Translations: [ENC THERAPEUTC DRUG LEVL MONITORING] Onset: 3 Episodic Other aftercare (1 source) halfway (current) use of anticoagulants; Translations: [PERSONNEL RESEARCH PSYCHOLOGIST CURRNT USE 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] Onset: 3 Episodic Other aftercare (1 source) Other long term care pharmacist (current) drug therapy; Translations: [OTH FPC CURRENT DRUG THERAPY] Onset: 3 Episodic Other hematologic conditions (1 source) Other specified abnormalities of plasma proteins; Translations: [OTH SPEC ABNORM PLASMA PROTEINS] Onset: 3 Episodic Other liver diseases (2 sources) Cirrhosis of liver; Translations: [Unspecified cirrhosis of liver] Chronic Other liver diseases (2 sources) Unspecified cirrhosis of liver Onset: 1 Resolved: 2 Chronic Other liver diseases (1 source) Fatty (change of) liver, not elsewhere classified; Translations: [FATTY CHANGE LIVER NEC] Onset: 3 Chronic Other liver diseases (1 source) Steatosis of liver; Translations: [Fatty (change of) liver, not elsewhere classified] Onset: 3 09-06-2023 Chronic Other nervous system disorders (2 sources) Chronic pain; Translations: [Other chronic pain] Chronic Other non-traumatic joint disorders (1 source) Pain in left knee; Translations: [Pain in joint, lower leg] Onset: 3 09-06-2023 Episodic Other nutritional; endocrine; and metabolic disorders (2 sources) Morbid obesity; Translations: [Morbid (severe) obesity due to excess calories] Chronic Other nutritional; endocrine; and metabolic disorders (4 sources) Morbid (severe) obesity due to excess calories; Translations: [MORBID SEVERE OBES D/T EXCESS BINDU] Onset: 1 Resolved: 1 Chronic Other nutritional; endocrine; and metabolic disorders (1 source) Body mass index (BMI) 50.0-59.9, adult; Translations: [BODY MASS INDEX BMI 50.0-59.9 ADULT] Onset: 3 Chronic Other nutritional; endocrine; and metabolic disorders (4 sources) Obesity, unspecified; Translations: [OBESITY UNSPECIFIED] Onset: 2 Chronic Other nutritional; endocrine; and metabolic disorders (1 source) Hypocalcemia; Translations: [Hypocalcemia] Onset: 3 09-06-2023 Chronic Other nutritional; endocrine; and metabolic disorders (1 source) Obesity; Translations: [Obesity, unspecified] Onset: 3 09-06-2023 Chronic Other screening for suspected conditions (not mental disorders or infectious disease) (2 sources) Ultrasound scan abnormal; Translations: [Abnormal findings on diagnostic imaging of other specified body structures] Chronic Other screening for suspected conditions (not mental disorders or infectious disease) (8 sources) Abnormal coagulation profile; Translations: [Encounter for screening mammogram for malignant neoplasm of breast] Onset: 2 Episodic Other upper respiratory infections (1 source) Acute sinusitis, unspecified; Translations: [ACUTE SINUSITIS UNSPECIFIED] Onset: 3 Episodic Residual codes; unclassified (5 sources) Obstructive sleep apnea (adult) (pediatric); Translations: [OBSTRUCTIVE SLEEP APNEA] Onset: 2 Chronic Screening and history of mental health and substance abuse codes (1 source) Personal history of nicotine dependence; Translations: [PERSONAL HISTORY OF NICOTINE DEPEND] Onset: 3 Episodic Spondylosis; intervertebral disc disorders; other back problems (10 sources) Cervical spondylosis; Translations: [Spondylosis without myelopathy or radiculopathy, cervical region] Onset: 3 Chronic Spondylosis; intervertebral disc disorders; other back problems (4 sources) Cervical radiculopathy; Translations: [Radiculopathy, cervical region] Onset: 3 09-06-2023 Episodic Unclassified (2 sources) LOW BACK PAIN, UNSPECIFIED; Translations: [LOW BACK PAIN, UNSPECIFIED] Onset: 3 Unclassified (1 source) Chronic atrial fibrillation, unspecified; Translations: [CHRONIC ATRIAL FIBRILLATION UNSPEC] Onset: 3 Unclassified (1 source) CONTACT W/AND (SUSP) EXPOS COVID-19; Translations: [CONTACT W/AND (SUSP) EXPOS COVID-19] Onset: 3 Unclassified (4 sources) COUGH, UNSPECIFIED; Translations: [COUGH, UNSPECIFIED] Onset: 2 Unclassified (2 sources) Other persistent atrial fibrillation; Translations: [Other persistent atrial fibrillation] Onset: 3 Unclassified (1 source) Encounter for checking and testing of cardiac pacemaker pulse generator [battery]; Translations: [Encounter for checking and testing of cardiac pacemaker pulse generator [battery]] Onset: 3 Past or Other Problems Problem Classification Problem Date Documented Da te Episodic/Chronic Abdominal hernia (2 sources) Diaphragmatic hernia with obstruction, without gangrene; Translations: [Diaphragmatic hernia with obstruction, without gangrene] Onset: 04-28-2022 Episodic Fracture of lower limb (4 sources) Closed fracture of fifth metatarsal bone; Translations: [Displaced fracture of fifth metatarsal bone, left foot, initial encounter for closed fracture] Episodic Malaise and fatigue (4 sources) Other malaise; Translations: [Other fatigue] Onset: 04-28-2022 Episodic Mood disorders (1 source) Mood disorders Onset: 09-06-2023 09-06-2023 Other connective tissue disease (2 sources) Pain of left hand; Translations: [Pain in left hand] Episodic Other connective tissue disease (2 sources) Pain in left foot; Translations: [Pain in left foot] Episodic Other connective tissue disease (2 sources) Impingement syndrome of right shoulder region; Translations: [Impingement syndrome of right shoulder] Episodic Other connective tissue disease (2 sources) Bursopathy, unspecified; Translations: [Bursopathy, unspecified] Onset: 04-28-2022 Episodic Other gastrointestinal disorders (2 sources) Dysphagia; Translations: [Dysphagia, unspecified] Episodic Other inflammatory condition of skin (4 sources) Other pruritus; Translations: [OTHER PRURITUS] Onset: 07-13-2022 Episodic Other lower respiratory disease (1 source) Snoring; Translations: [SNORING] Onset: 07-16-2022 Episodic Other lower respiratory disease (5 sources) Other nonspecific abnormal finding of lung field; Translations: [OTH NONSPECIFIC ABN FIND LNG FIELD] Onset: 02-25-2022 Episodic Other lower respiratory disease (5 sources) Shortness of breath; Translations: [SHORTNESS OF BREATH] Onset: 02-25-2022 Episodic Other lower respiratory disease (1 source) Hemoptysis; Translations: [HEMOPTYSIS] Onset: 02-25-2022 Episodic Other non-traumatic joint disorders (4 sources) Shoulder pain; Translations: [Pain in left shoulder] Episodic Other non-traumatic joint disorders (2 sources) Knee pain; Translations: [Pain in left knee] Episodic Residual codes; unclassified (1 source) Edema; Translations: [Edema, unspecified] Onset: 01-12-2012 09-06-2023 Episodic Superficial injury; contusion (2 sources) Contusion of shoulder region; Translations: [Contusion of left shoulder, initial encounter] Episodic Unclassified (1 source) LOW BACK PAIN, UNSPECIFIED; Translations: [LOW BACK PAIN, UNSPECIFIED] Onset: 01-28-2023 Unclassified (1 source) COUGH, UNSPECIFIED; Translations: [COUGH, UNSPECIFIED] Onset: 03-30-2022 Results Test Name Value Interpretation Reference Range Facility MR lumbar spine wo [place] MR lumbar spine wo con [facility] [place] [address] [place] [address] XRay Report Signed Patient: Breann Starks MR#: [id number] 171 : 1945 Acct:[id number] Age/Sex: 77 / F ADM Date: 10/11/23 Loc: MR Room: Type: [facility] Attending Dr: Claire DESIR Copies to: THANG Porter Ordering Provider: THANG Porter Date of Service: 10/11/23 MR/MR lumbar spine wo con: LUMBAR RADICULPATHY ([id number]) XR/XR pre/post mri xray: LUMBAR RADICULPATHY CLINICAL DATA: Bilateral leg numbness for several months, left worse than right and greater when supine. PRE-MRI LUMBAR SPINE - 2 views COMPARISON: None Standing AP and lateral views were obtained. There is osteopenia. There is subtle reverse S-shaped thoracolumbar scoliotic curvature. On the lateral view, there is minimal retrolisthesis of T12 on L1 and L1 on L2. There is approximately 8 mm of anterolisthesis of L4 and L5. There are no acute fractures. There is multilevel disc space narrowing with relative sparing at L2-3. There is endplate spurring, greater in the lower thoracic and upper lumbar region. There is lower lumbar facet hypertrophy. There is minor SI joint sclerosis. No paraspinal soft tissue abnormalities are seen. XR/XR pre/post mri xray IMPRESSION: SUBTLE SCOLIOSIS AND MULTILEVEL DEGENERATIVE CHANGES, DESCRIBED. MRI LUMBAR SPINE WITHOUT CONTRAST COMPARISON: None Multiecho imaging in the axial and sagittal plane was performed without contrast. There is minimal retrolisthesis of T12 on L1 and L1 on L2. There is mild anterolisthesis of L4 on L5. There are no acute compression fractures or marrow edema. Degenerative endplate signal changes are noted along with endplate spurring. The conus medullaris is within normal limits for caliber, position and signal intensity. No paraspinal soft tissue abnormalities are noted. There is a small right renal cyst. At T11-12 on the sagittal sequences, there is minor annular disc bulging with slight thecal sac effacement. At T12-L1, there is narrowing of the disc space. There is mild annular disc bulging, greater toward the neural foramen and slightly asymmetric extending laterally on the right. There is minor facet disease. There is mild thecal sac effacement. There is minor left and mild to moderate inferior foraminal encroachment on the right. At L1-2, there is minimal loss of disc height. There is minor annular disc bulging, slightly asymmetric through the right neural foramen extending laterally where there is also endplate spurring. There is minor facet and ligament hypertrophy. There is minimal thecal sac effacement. There is minor left and mild to moderate right inferior foraminal encroachment. At L2-3, the disc is within normal limits for height. There is minor annular disc bulging, slightly asymmetric extending laterally on the left where there is endplate spurring. There is mild thickeni ng of ligamentum flavum and bilateral facet hypertrophy with a small amount of fluid within the facet joints. There is mild to moderate thecal sac effacement. There is mild inferior foraminal encroachment, left side slightly worse than right. At L3-4, there is slight loss of disc height. Annular disc bulging is visualized and there is also lateral endplate spurring. There is bilateral facet and ligamentous hypertrophy with moderate to severe thecal sac effacement. There is also mild to moderate foraminal encroachment, partially related to the posterior element disease. At L4-5, there is narrowing of the disc space. There is moderate annular disc bulging and partial uncovering of the disc. There is prominent facet disease and mild thickening of ligamentum flavum. There is severe thecal sac effacement. There is mild to potentially moderate narrowing of the neural foramen on both sides slightly worse on the left. At the lumbosacral junction, there is minor annular disc bulging, greater laterally where there is mild endplate spurring. There is bilateral facet disease. There is only subtle thecal sac effacement. There is mild inferior foraminal encroachment on both sides is as well as mild posterior impingement due to facet disease on the left. IMPRESSION: MULTILEVEL DISCOVERTEBRAL DEGENERATIVE CHANGES WITH ASSOCIATED STENOSIS, DESCRIBED. THIS IS GREATEST AT L4-5 WHERE THERE IS ALSO ASSOCIATED SPONDYLOLISTHESIS. Impression dictated by: Eleanor Reece M.D.10/11/2023 4:10 PM Dictation Location: [place] [address] Transcribed By: [facility] 10/11/23 161 Dictated By: Eleanor Reece MD 10/11/23 1133 Signed By: 10/11/23 1610 [facility] Office Visiton 07-05-2023 Follow-up visit [id number] KevinBreann gardner 1945 F Date Provider Department Center 07/05/2023 YANCY IVERSON Family History Adopted: Yes Family history unknown: Yes Family Status - Relation Status Age at Mother Father Level of Service:40815 [place] OFFICE/OUTPATIENT ESTABLISHED LOW MDM 20-29 MIN Normal [facility] Office Visiton 03-01-2023 Follow-up visit [id number] Breann Starks 1945 F Date Provider Department Center 03/01/2023 YANCY IVERSON Family History Adopted: Yes Family history unknown: Yes Family Status - Relation Status Age at Mother Father Level of Service:67364 [place] OFFICE/OUTPATIENT ESTABLISHED MOD MDM 30-39 MIN Reason for Visit and Comments: Follow-up [487771] - 3 month follow up Normal [facility] XR LSPINE W_OBLS AND FLEX_EX Ton 01-31-2023 XR LSPINE W_OBLS AND FLEX_EXT EXAMINATION: XR LSPINE W_OBLS AND FLEX_EXT HISTORY: Lumbar spondylosis ; chronic back pain COMPARISON: XR L-spine 04/14/2021 FINDINGS: BONES: 3 mm retrolisthesis of T12 on L1 which develops during flexion. 7 mm anterior listhesis of L4 on 5 during neutral positioning and flexion which reduces to 5 mm during extension. No compression fracture. Mild-moderate degenerative facet arthropathy at all lumbar levels. DISC SPACES: Moderate narrowing T12-L1, L4-5, L5-S1. Mild narrowing L1-2. PARASPINOUS: No paraspinous abnormality is seen. OTHER: Negative. IMPRESSION: 1. No appreciable acute abnormality or compression fracture. 2. Retrolisthesis of T12 on L1 (5 mm) which developed during flexion. 3. Anterior listhesis of L4 on 5 (7 mm) which changes with patient position. 4. Multilevel moderate degenerative disc disease and facet arthropathy. Electronically authenticated by: PAULA DELGADO Date: 2023-01-31 11:34 Normal [facility] Physician Referralon 023 Physician Referral [id number] #1.00CD:127 Normal [facility] Ambulatory Visit Summaryon 0 01-11-2023 Ambulatory Visit Summary BREANN STARKS :1945 Visit Date:01/11/2023 Ambulatory Visit Instructions Your Diagnosis Sciatica of left side Myalgia BMI 50.0-59.9, adult Morbid obesity due to excess calories Your Care Team Attending Physician - Barbara Dai Primary Care Physician - Barbara Dai This Is Your Medications List ascorbic acid (Vitamin C 250 mg oral tablet, chewable) cholecalciferol (Vitamin D3 5000 intl units (125 mcg) oral tab) flecainide (flecainide 100 mg Tab) methylPREDNISolone (Medrol 4 mg Tab) multivitamin with minerals (Centrum Women 50 Plus Multigummies oral tablet, chewable) omeprazole (omeprazole 40 mg Cap-DR) spironolactone (spironolactone 25 mg Tab) verapamil (verapamil 180 mg Cap-ER) warfarin (warfarin 3 mg Tab) Procedures Performed Cardiac pacemaker (09/20/2021), History of right total knee replacement (09/12/2003), History of left total knee replacement (09/12/2001), Appendectomy, Arthroscopy of knee, Arthroscopy of shoulder, Cardiac catheter, Colonoscopy, Rotator cuff repair, YANELI BSO - Total abdominal hysterectomy and bilateral salpingo-oophorectom y. Discharge Vitals Heart Rate (Peripheral) 60 Blood Pressure 126/82 Height 141 cm Height 56 in Weight 107.2 kg Weight 235.84 lb BMI 53.92 What to do next Someone Will Contact You Regarding These Appointments [facility] [place] Referral, Patient choice/referral by family/friend, Pain Management, [facility] Pain managment., 01/11/23 11:02:00 EDT, Sciatica of left side Normal [facility] Ambulatory Visit Summary BREANN STARKS :1945 Visit Date:01/11/2023 Ambulatory Visit Instructions Your Diagnosis Sciatica of left side BMI 50.0-59.9, adult Morbid obesity due to excess calories Your Care Team Attending Physician - Barbara Dai Primary Care Physician - Barbara Dai This Is Your Medications List ascorbic acid (Vitamin C 250 mg oral tablet, chewable) cholecalciferol (Vitamin D3 5000 intl units (125 mcg) oral tab) flecainide (flecainide 100 mg Tab) multivitamin with minerals (Centrum Women 50 Plus Multigummies oral tablet, chewable) omeprazole (omeprazole 40 mg Cap-DR) spironolactone (spironolactone 25 mg Tab) verapamil (verapamil 180 mg Cap-ER) warfarin (warfarin 3 mg Tab) Procedures Performed Cardiac pacemaker (09/20/2021), History of right total knee replacement (09/12/2003), History of left total knee replacement (09/12/2001), Appendectomy, Arthroscopy of knee, Arthroscopy of shoulder, Cardiac catheter, Colonoscopy, Rotator cuff repair, YANELI BSO - Total abdominal hysterectomy and bilateral salpingo-oophorectom y. Discharge Vitals Heart Rate (Peripheral) 60 Blood Pressure 126/82 Height 141 cm Height 56 in Weight 107.2 kg Weight 235.84 lb BMI 53.92 Medications What How Much When Instructions Changed cholecalciferol (Vitamin D3 5000 intl units (125 mcg) oral tab) 1 Tablets By Mouth Every day Duration: 90 Days Changed omeprazole (omeprazole 40 mg Cap-DR) 1 Capsules By Mouth Every day Duration: 90 Days Unchanged ascorbic acid (Vitamin C 250 mg oral tablet, chewable) 1 Tablets Chewed Every day Unchanged flecainide (flecainide 100 mg Tab) 1 Tablets By Mouth Every 12 hours Unchanged multivitamin with minerals (Centrum Women 50 Plus Multigummies oral tablet, chewable) Unchanged spironolactone (spironolactone 25 mg Tab) 1 Tablets By Mouth Every day Duration: 90 Days TAKE 1 TABLET BY MOUTH EVERY DAY Unchanged verapamil (verapamil 180 mg Cap-ER) 2 Capsules By Mouth Every day Duration: 90 Days TAKE 2 CAPSULES BY MOUTH EVERY DAY Unchanged warfarin (warfarin 3 mg Tab) TAKE DAILY DIRECTED PER COUMADIN CLINIC Allergies No Known Medication Allergies Problems Ongoing - Any problem that you are currently receiving treatment for. Atrial fibrillation Cervical radiculopathy COPD (chronic obstructive pulmonary disease) Fatty liver Gastric ulcer Hiatal hernia Hypocalcemia Osteoarthritis of both knees Osteoarthritis of lumbar spine Peptic ulcer disease PSVT (paroxysmal supraventricular tachycardia) Shingles Spinal stenosis Venous insufficiency Vitamin D deficiency Historical - Any problem that you are no longer receiving treatment for. Depression Migraines Normal [facility] Family Medicine Office/Clini c Noteon 01-11-2023 Family Medicine Office/Clinic Note HPI Staff Breann is a 77 year old female who presents today to [facility]. Establish Care: History: A fib, COPD, OA of LS and bilateral knees, PSVT, fatty liver, cervical radiculopathy, pacemaker, cirrhosis of the liver History of specialists: Dr. Gonzales, Dr. Kaur-Cardiology, Dr. Martin- chiropractor, [facility] Last provider: Elizabeth Winter recent labs: Jul 2022 Health Maintenance UTD: Colonoscopy: 2012, pt is due Mammogram: December 2022 at [facility] which was normal Pelvic/Pap: pt had a total hysterectomy in her 30's Acute: Current issues/complaints: sciatica, body aches, skin hurts to touch, unable to sleep Pt reports for the last 3-4 days her entire body hurts. Today she does not hurt however it becomes so painful and intense that pt is unable to be touched. She states it keeps her up all hours of the night such as 3am the other night. She also see's a chiropractor for sciatica however pt has been getting alignments without relief. History of Present Illness pt presents today with left sciatic pain, unable to sleep due to pain Review of Systems PHQ Score Initial Depression Screen Score: 0 ROS - Provider Constitutional: no fever, no chills, no sweats, no fatigue Respiratory: no shortness of breath, no cough, no orthopnea, no wheezing. Cardiovascular: no chest pain, no palpitations, no edema. Neurologic: no headache, no dizziness, no numbness, no weakness. musculoskeletal: left low back pain that radiates down left leg Physical Exam Vitals & Measurements HR: 60(Peripheral) BP: 126/82 SpO2: 94% HT: 56 in HT: 141 cm WT: 107.2 kg WT: 235.84 lb BMI: 53.92 General: alert, no acute distress ENMT: oral mucosa moist, no pharyngeal erythema or exudate Cardiovascular: regular rate and rhythm, normal peripheral perfusion Respiratory: Lungs CTA, respirations non labored Extremities: no deformity, no trauma Neurological: oriented x 4, LOC appropriate for age, CN II-XII intact, motor strength equal & normal bilaterally, speech normal Musculoskeletal: painful ROM, difficulty sitting or standing Assessment/Plan 1. Sciatica of left side (M54.32: Sciatica, left side) pt presents today with left sciatic pain. Pt previously saw Dr. Sood at pain management and received 2 injections for this pain. But never went back for 3rd injection because she ended up falling and having shoulder surgery. Then covid started. So she just never followed up. She has been to chiropractor and is still uncomfortable. she felt good this morning, until she went to get out of the car she twisted funny and it started hurting again. She also c/o all of her joints and muscles hurting. She just finished taking lipitor that was prescribed a month ago. but is no longer taking that. will refer back to [facility]. All questions answered. RTC as needed Ordered: methylPREDNISolone, = 1 packet(s), Oral, As Directed, as directed on package labeling, X 6 day(s), # 21 tab(s), Refills(s) 0, Pharmacy: [facility]/pharmacy #[id number], 141, cm, 01/11/23 10:30:00 EDT, Height/Length Dosing, 107.2, kg, 01/11/23 10:30:00 EDT, Weight Dosing [facility] [place] Ambulatory Referral 2. Myalgia (M79.10: Myalgia, unspecified site) medrol dose pack ordered Ordered: methylPREDNISolone, = 1 packet(s), Oral, As Directed, as directed on package labeling, X 6 day(s), # 21 tab(s), Refills(s) 0, Pharmacy: [facility]/pharmacy #[id number], 141, cm, 01/11/23 10:30:00 EDT, Height/Length Dosing, 107.2, kg, 01/11/23 10:30:00 EDT, Weight Dosing [facility] [place]ulatory Referral BMI 50.0-59.9, adult (Z68.43: Body mass index [BMI] 50.0-59.9, adult) BMI education complete Ordered: Body Mass Index (BMI) documented 3008F Morbid obesity due to excess calories (E66.01: Morbid (severe) obesity due to excess calories) see above Ordered: Body Mass Index (BMI) documented 3008F Follow-up No qualifying data available Problem List/Past Medical History Ongoing Atrial fibrillation Cervical radiculopathy COPD (chronic obstructive pulmonary disease) Fatty liver Gastric ulcer Hiatal hernia Hypocalcemia Osteoarthritis of both knees Osteoarthritis of lumbar spine Peptic ulcer disease PSVT (paroxysmal supraventricular tachycardia) Shingles Spinal stenosis Venous insufficiency Vitamin D deficiency Historical Depression Migraines Procedure/Surgical History Cardiac pacemaker (09/20/2021), History of right total knee replacement (09/12/2003), History of left total knee replacement (09/12/2001), Appendectomy, Arthroscopy of knee, Arthroscopy of shoulder, Cardiac catheter, Colonoscopy, Rotator cuff repair, YANELI BSO - Total abdominal hysterectomy and bilateral salpingo-oophorectom y. Medications Centrum Women 50 Plus Multigummies oral tablet, chewable flecainide 100 mg Tab, 100 mg= 1 tab(s), Oral, q12hr Medrol 4 mg Tab, 1 packet(s), Oral, As Directed omeprazole 40 mg Cap-DR, 40 mg= 1 cap(s), Oral, Daily spironolactone 25 mg Tab, 25 mg= 1 tab(s), Oral, D (more content not included)... Normal [facility] Comment on above: Result Comment: Elec tronically Signed By: Barbara Dai\.br\Date and Time Signed: 01/11/23 11:12 EDT Lab Reportson 12-22-2022 Lab Reports [id number] #1.00CD:127 Normal [facility] 36on 12-17-2022 36 Pt has chose to stop taking atorvastatin Normal [facility] 36on 12-16-2022 36 She was started d/t elevated troponin with chest pain when she was admitted. I believe she was recommended outpatient ischemic evsue bowers saw her on follow up, not sure if stress was ordered or determined not needed, I would follow up with her regarding it. Normal [facility] LIPID PROFILEon 12-16-2022 CHOL-HDL RATIO NORM SEE BELOW Normal [facility] Comment on above: Result Comment: 3.3 - 4.4 LOW RISK 4.4 - 7.1 AVERAGE RISK 7.1 - 11.0 MODERATE RISK >11.0 HIGH RISK Performed By: #### L IPID ####[facility] [address] [address]Dr. Erasmo Smith Cholesterol [Mass/Vol] 105 mg/dL Normal <=200 [facility] Comment on above: Performed By: #### L IPID ####[facility] [address] [address]Dr. Erasmo Smith Cholesterol in HDL [Mass/Vol] 48 mg/dL Normal 40-60 [facility] Comment on above: Performed By: #### L IPID ####[facility] [address] [id number]. Erasmo Smith Cholesterol in LDL [Mass/Vol] 48.2 mg/dL Normal [facility] Comment on above: Performed By: #### L IPID ####[facility] [address] [id number]. Erasmo Smith Cholesterol.total/Chol esterol in HDL [Mass ratio] 2.2 {ratio} Normal [facility] Comment on above: Performed By: #### L IPID ####[facility] [address] [address]Dr. Heavenlan Smith HDL NORMAL > or = 60 mg/dl - LOW CARDIOVASCULAR RISK <40 mg/dl - HIGH CARDIOVASCULAR RISK Normal [facility] Comment on above: Performed By: #### L IPID ####[facility] [address] [address]Dr. Erasmo Smith LDL CALC NORMAL SEE BELOW Normal [facility] Comment on above: Result Comment: <100 mg/dl OPTIMAL 100 - 129 mg/dl NEAR OR ABOVE OPTIMAL 130 - 159 mg/dl BORDERLINE HIGH 160 - 189 mg/dl HIGH >190 mg/dl VERY HIGH Performed By: #### L IPID ####[facility] [address] [address]Dr. Erasmo Smith Triglyceride [Mass/Vol] 44 mg/dL Normal <=150 [facility] Comment on above: Performed By: #### L IPID ####[facility] [address] [place] [address]Dr. Erasmo Smith VLDL CALC 8.8 mg/dL Normal [facility] Comment on above: Performed By: #### L IPID ####[facility] [address] [address]Dr. Erasmo Smith Echocardiographyon Echocardiography [id number] #1.00CD:127 Normal [facility] Outside [facility] Correspo ndenceon 12-13-2022 Outside [facility] Correspondence [id number] #1.00CD:127 Normal [facility] Outside [facility] Correspondence [id number]# 1.00CD:127 Normal [facility] Office Visiton 12-08-2022 Follow-up visit [id number] Breann Starks 1945 F Date Provider Department Center 12/08/2022 [id number] KAUR Family History Adopted: Yes Family history unknown: Yes Family Status - Relation Status Age at Mother Father Level of Service:15039 [place] OFFICE/OUTPATIENT ESTABLISHED MOD MDM 30-39 MIN Reason for Visit and Comments: Follow-up [963571] - Discuss stress test. Unable to come up with answers to whats going on Normal [facility] CULTURE BLOODon 12-04-2022 Microscopic examination of blood, culture Culture Observations: Aerobic and Anaerobic bottle positive. BCID: E. Coli Isolate 1 Escherichia coli Growth of ORGANISM 1 Escherichia coli ANTIBIOTIC M.I.C RX STATUS Ampicillin <=2 S F Ampicillin/Sulbactam <=2 S F Piperacillin/Tazobac saez <=4 S F Cefazolin <=4 S F Ceftazidime <=1 S F Ceftriaxone <=1 S F Ertapenem <=0.5 S F Imipenem <=0.25 S F Amikacin <=2 S F Gentamicin <=1 S F Tobramycin <=1 S F Ciprofloxacin <=0.25 S F Levofloxacin <=0.12 S F Trimethoprim/Sulfame thoxazole <=20 S F Normal [facility] Comment on above: Performed By: #### B LDCX1 ####[facility] [address] [place], [place] [address]Dr. Erasmo Smith BNPon 12-03-2022 Natriuretic peptide B (Bld) [Mass/Vol] 413.0 pg/mL Normal <=1,800.0 [facility] Comment on above: Performed By: #### B BATTERY ASSEMBLER PLASTIC #### [facility] [address] [place] [address] Dr. Erasmo Smith CBC AUTO DIFFon 12-03-2022 BASO # 0.0 103/ul Normal 0.0-0.1 [facility] Comment on above: Performed By: #### C BC ####[facility] [address] [place], [place] [address]Dr. Erasmo Smith Basophils/100 WBC (Bld) 0.2 % Normal 0.2-2.0 [facility] Comment on above: Performed By: #### C BC ####[facility] [address] [place], [place] [address]Dr. Erasmo Smith EO # 0.4 103/ul Normal 0.0-0.7 [facility] Comment on above: Performed By: #### C BC ####[facility] [address] [place], [place] [address]Dr. Erasmo Smith Eosinophils/100 WBC (Bld) 2.1 % Normal 0.9-7.0 [facility] Comment on above: Performed By: #### C BC ####[facility] [address] [place] [address]Dr. Erasmo Smith Erythrocyte distribution width (RBC) [Ratio] 17.2 % Critically high 11.0-15.0 [facility] Comment on above: Performed By: #### C BC ####[facility] [address] [place], [place] [address]Dr. Erasmo Smith Hematocrit (Bld) [Volume fraction] 29.2 % Critically low 36.0-48.0 [facility] Comment on above: Performed By: #### C BC ####[facility] [address] [place], [place] [address]Dr. Erasmo Smith Hemoglobin (Bld) [Mass/Vol] 9.5 g/dL Critically low 12.0-16.0 [facility] Comment on above: Performed By: #### C BC ####[facility] [address] [place], [place] [address]Dr. Erasmo Smith IG # 0.13 10e3/ul Critically high 0.00-0.03 [facility] Comment on above: Performed By: #### C BC ####[facility] [address] [place], [place] [address]Dr. Erasmo Smith IG % 0.8 % Critically high 0.0-0.5 [facility] Comment on above: Performed By: #### C BC ####[facility] [address] [place], [place] [address]Dr. Erasmo Smith LYMPH # 1.8 103/ul Normal 1.2-3.8 [facility] Comment on above: Performed By: #### C BC ####[facility] [address] [place], [place] [address]Dr. Erasmo Smith Lymphocytes/100 WBC (Bld) 10.3 % Critically low 20.5-60.0 [facility] Comment on above: Performed By: #### C BC ####[facility] [address] [place], [place] [address]Dr. Heavenean Smith MANUAL DIFF REQ NO Normal [facility] Comment on above: Performed By: #### C BC ####[facility] [address] [place] [address]Dr. Erasmo Luis MCH (RBC) [Entitic mass] 25.7 pg Critically low 26.7-34.0 [facility] Comment on above: Performed By: #### C BC ####[facility] [address] [place] [address]Dr. Erasmo Luis MCHC (RBC) [Mass/Vol] 32.5 g/dL Normal 29.9-35.2 [facility] Comment on above: Performed By: #### C BC ####[facility] [address] [place] [address]Dr. Erasmo Smith MCV (RBC) [Entitic vol] 79.1 fL Critically low 81.0-99.0 [facility] Comment on above: Performed By: #### C BC ####[facility] [address] [place], [place] [address]Dr. Erasmo Smith MONO # 1.5 103/ul Critically high 0.3-0.8 [facility] Comment on above: Performed By: #### C BC ####[facility] [address] [place] [address]Dr. Erasmo Smith Monocytes/100 WBC (Bld) 8.7 % Normal 1.7-12.0 [facility] Comment on above: Performed By: #### C BC ####[facility] [address] [place], [place] [address]Dr. Erasmo Smith NEUT # 13.4 103/ul Critically high 1.4-6.5 [facility] Comment on above: Performed By: #### C BC ####[facility] [address] [place], [place] [address]Dr. Erasmo Smith Neutrophils/100 WBC (Bld) 77.9 % Critically high 43.0-75.0 [facility] Comment on above: Performed By: #### C BC ####[facility] [address] [place] [address]Sw. Erasmo Smith Platelet mean volume (Bld) [Entitic vol] 9.3 fL Critically low 9.5-13.5 [facility] Comment on above: Performed By: #### C BC ####[facility] [address] [place] [address]Dr. Erasmo Smith PLT 205 103/ul Normal 150-450 [facility] Comment on above: Performed By: #### C BC ####[facility] [address] [place] [address]Dr. Erasmo Smith RBC 3.69 106/ul Critically low 4.20-5.40 [facility] Comment on above: Performed By: #### C BC ####[facility] [address] [place] [address]Dr. Erasmo Smith WBC 17.2 103/ul Critically high 4.0-11.0 [facility] Comment on above: Performed By: #### C BC ####[facility] [address] [place] [address]DrMeena Smith MAGNESIUMon 12-03-2022 Magnesium [Mass/Vol] 1.9 mg/dL Normal 1.8-2.4 [facility] Comment on above: Performed By: #### B BATTERY ASSEMBLER PLASTIC #### [facility] [address] [address] [address] Erasmo Smith Orders Onlyon 12-03-2022 Orders Only [id number] Breann Starks 1945 F Date Provider Department Center 12/03/2022 [facility]. Family History Family history unknown: Yes Normal [facility] PROF 14(COMP METB)on 023 Albumin [Mass/Vol] 2.6 g/dL Critically low 3.4-5.0 [facility] Comment on above: Performed By: #### B BATTERY ASSEMBLER PLASTIC #### [facility] [address] [address] [address] Erasmo Smith Albumin/Globulin [Mass ratio] 0.6 {ratio} Normal [facility] Comment on above: Performed By: #### B BATTERY ASSEMBLER PLASTIC #### [facility] [address] [place] [address] Dr. Erasmo Smith ALP [Catalytic activity/Vol] 123 U/L Critically high 46-116 [facility] Comment on above: Performed By: #### B BATTERY ASSEMBLER PLASTIC #### [facility] [address] [address] [address] Erasmo Smith ALT [Catalytic activity/Vol] 28 U/L Normal 14-59 [facility] Comment on above: Performed By: #### B BATTERY ASSEMBLER PLASTIC #### [facility] [address] [place] [address] Dr. Erasmo Smith Anion gap [Moles/Vol] 9.4 mmol/L Normal [facility] Comment on above: Performed By: #### B BATTERY ASSEMBLER PLASTIC #### [facility] [address] [place] [address] Dr. Erasmo Smith AST [Catalytic activity/Vol] 21 U/L Normal 15-37 [facility] Comment on above: Performed By: #### B BATTERY ASSEMBLER PLASTIC #### [facility] [address] [place] [address] Dr. Erasmo Smith Bilirubin [Mass/Vol] 0.3 mg/dL Normal 0.2-1.0 [facility] Comment on above: Performed By: #### B BATTERY ASSEMBLER PLASTIC #### [facility] [address] [place] [address] Dr. Erasmo Smith Calcium [Mass/Vol] 8.3 mg/dL Critically low 8.5-10.1 [facility] Comment on above: Performed By: #### B BATTERY ASSEMBLER PLASTIC #### [facility] [address] [place] [address] Dr. Erasmo Smith Chloride [Moles/Vol] 105 mmol/L Normal 98-107 [facility] Comment on above: Performed By: #### B BATTERY ASSEMBLER PLASTIC #### [facility] [address] [place] [address] Dr. Erasmo Smith CO2 [Moles/Vol] 27.1 mmol/L Normal 21.0-32.0 [facility] Comment on above: Performed By: #### B BATTERY ASSEMBLER PLASTIC #### [facility] [address] [place] [address] Dr. Erasmo Smith Creatinine [Mass/Vol] 0.55 mg/dL Normal 0.55-1.02 [facility] Comment on above: Performed By: #### B BATTERY ASSEMBLER PLASTIC #### [facility] [address] [place] [address] Dr. Erasmo Smith EGFR-AF [place] >60 Normal >=60 [facility] Comment on above: Performed By: #### B BATTERY ASSEMBLER PLASTIC #### [facility] [address] [place] [address] Dr. Erasmo Smith EGFR-NON AF [place] >60 Normal >=60 [facility] Comment on above: Performed By: #### B BATTERY ASSEMBLER PLASTIC #### [facility] [address] [place] [address] Dr. Erasmo Smith Globulin (S) [Mass/Vol] 4.0 g/dL Normal [facility] Comment on above: Performed By: #### B BATTERY ASSEMBLER PLASTIC #### [facility] [address] [place] [address] Dr. Erasmo Smith Glucose [Mass/Vol] 132 mg/dL Critically high 74-106 [facility] Comment on above: Performed By: #### B BATTERY ASSEMBLER PLASTIC #### [facility] [address] [place] [address] Dr. Erasmo Smith Potassium [Moles/Vol] 3.5 mmol/L Normal 3.5-5.1 [facility] Comment on above: Performed By: #### B BATTERY ASSEMBLER P[employer]IC #### [facility] [address] [place] [address] Dr. Erasmo Smith Protein [Mass/Vol] 6.6 g/dL Normal 6.4-8.2 [facility] Comment on above: Performed By: #### B BATTERY ASSEMBLER PLASTIC #### [facility] [address] [place] [address] Dr. Erasmo Smith Sodium [Moles/Vol] 138 mmol/L Normal 136-145 [facility] Comment on above: Performed By: #### B BATTERY ASSEMBLER PLASTIC #### [facility] [address] [place] [address] Dr. Erasmo Smith Urea nitrogen [Mass/Vol] 24.0 mg/dL Critically high 7.0-18.0 [facility] Comment on above: Performed By: #### B BATTERY ASSEMBLER PLASTIC #### [facility] [address] [place] [address] Dr. Erasmo Smith Urea nitrogen/Creatinine [Mass ratio] 43.6 mg/mg Normal [facility] Comment on above: Performed By: #### B BATTERY ASSEMBLER PLASTIC #### [facility] [address] [address] [address] Erasmo Smith PROTIMEon 12-03-2022 INR Coag (PPP) [Relative time] 4.41 {INR} Critically high [facility] Comment on above: Performed By: #### C MREP #### [facility] [address] [place] [address] Dr. Erasmo Smith INR GUIDELINES SEE BELOW Normal The [facility] Comment on above: Result Comment: ABNER RED INR: 2.0 - 3.0 CONDITIONS NOT LISTED BELOW 2.5 - 3.5 FOR PROSTHETIC HEART VALVE REPLACEMENT 2.5 - 3.5 RECURRENT THROMBOSIS Performed By: #### C MREP #### [facility] [address] [place] [address] Dr. Erasmo Smith PT Coag (PPP) [Time] 43.0 s Critically high 9.0-11.6 [facility] Comment on above: Performed By: #### C MREP #### [facility] [address] [place] [address] Dr. Erasmo Smith BLOOD CULTURE ID PANELon A. baumannii Not detected Normal NOT DETECTED The [facility] Comment on above: Performed By: #### B CID2 ####[facility] [address] [address]DrMeena Smith Bacteriodes fragilis Not detected Normal NOT DETECTED [facility] Comment on above: Performed By: #### B CID2 ####[facility] [address] [address]DrMeena Smith BCID CONTROLS PASSED Normal The [facility] Comment on above: Performed By: #### B CID2 ####[facility] [address] [address]Dr. Erasmo Smith BCIDBTHD BLOOD CULTURE BOTTLE INFORMATION Normal [facility] Comment on above: Performed By: #### B CID2 ####[facility] [address] [address]Dr. Yiean Smith BCIDHD1 ANTIMICROBIAL RESISTANCE GENES Normal [facility] Comment on above: Performed By: #### B CID2 ####[facility] [address] [address]Dr. Yiean Smith BCIDHD2 SEE BELOW Normal [facility] Comment on above: Result Comment: Note : Antimicrobial resitance can occur via multiple mechanisms. A Not Detected result for the [employer] antomicrobial resistance gene assays does not indicate antimicrobial susceptibility. Subculturing is required for species identification and susceptibility testing of isolates. Performed By: #### B CID2 ####[facility] [address] [place], [place] [address]Dr. Erasmo Smith BCIDHD3 Positive [facility] Comment on above: Performed By: #### B CID2 ####[facility] [address]adv[address]fmi[address] [place], [place] [address]Dr. Erasmo Smith BCIDHD4 Negative Normal [facility] Comment on above: Performed By: #### B CID2 ####[facility] [address] [place], [place] [address]Dr. Yiean Smith BCIDHD5 YEAST Normal [facility] Comment on above: Performed By: #### B CID2 ####[facility] [address] [address]Dr. Heavenlan Smith Bottle Set: Set 1 Normal [facility] Comment on above: Performed By: #### B CID2 ####[facility] [address] [address]Dr. Yilan Smith Bottle: Anaerobic Normal [facility] Comment on above: Performed By: #### B CID2 ####[facility] [address] [address]Dr. Yilan Smith C. neoformans/gattii Not detected Normal NOT DETECTED [facility] Comment on above: Performed By: #### B CID2 ####[facility] [address] [address]Dr. Yilan Smith Naye albicans Not detected Normal NOT DETECTED [facility] Comment on above: Performed By: #### B CID2 ####[facility] [address] [address]Dr. Yilan Smith Naye auris Not detected Normal NOT DETECTED [facility] Comment on above: Performed By: #### B CID2 ####[facility] [address] [address]Dr. Yilan Smith Naye glabrata Not detected Normal NOT DETECTED [facility] Comment on above: Performed By: #### B CID2 ####[facility] [address] [place], [place] [address]Dr. Yilan Smith Naye Krusei Not detected Normal NOT DETECTED [facility] Comment on above: Performed By: #### B CID2 ####[facility] [address]wy[address]cia[address] [place], [place] [address]Dr. Yilan Smith Naye Parapsilosis Not detected Normal NOT DETECTED [facility] Comment on above: Performed By: #### B CID2 ####[facility] [address] [place], [place] [address]Dr. Yilan Smith Naye Tropicalis Not detected Normal NOT DETECTED [facility] Comment on above: Performed By: #### B CID2 ####[facility] [address] [address]Dr. Yiean Smith CTX-M Resistant Gene Not Applicable Normal NOT DETECTE D [facility] Comment on above: Performed By: #### B CID2 ####[facility] [address] [place], [place] [address]Dr. Yilan Smith E. Cloacae complex Not detected Normal NOT DETECTED [facility] Comment on above: Performed By: #### B CID2 ####[facility] [address]xd[address] [place], [place] [address]Dr. Yilan Smith E. faecalis Not detected Normal NOT DETECTED The [facility] Comment on above: Performed By: #### B CID2 ####[facility] Tdvdhbeyzm[address] [place], [place] [address]Dr. Erasmo Smith E. faecium Not detected Normal NOT DETECTED The [facility] Comment on above: Performed By: #### B CID2 ####[facility] [address]vay[address] [place], [place] [address]Dr. Erasmo Smith Enterobacteriaceae Detected Critically abnormal NOT DETECTED [facility] Comment on above: Performed By: #### B CID2 ####[facility] [address]unocq[address] [place], [place] [address]Dr. Erasmo Smith Escherichia coli Detected Critically abnormal NOT DETECTED [facility] Comment on above: Performed By: #### B CID2 ####[facility] Lbzkwfgvyv[address] [place], [place] [address]Dr. Erasmo Smith H. influenzae Not detected Normal NOT DETECTED [facility] Comment on above: Performed By: #### B CID2 ####[facility] [address]ciuzi[address] [place], [place] [address]Dr. Erasmo Smith IMP Resistant Gene Not Applicable Normal NOT DETECTED [facility] Comment on above: Performed By: #### B CID2 ####[facility] Csjtgavbrm[address] [place], [place] [address]Dr. Erasmo Smith K. oxytoca Not detected Normal NOT DETECTED [facility] Comment on above: Performed By: #### B CID2 ####[facility] [address]iffec[address] [place], [place] [address]Dr. Erasmo Smith K. pneumoniae Not detected Normal NOT DETECTED [facility] Comment on above: Performed By: #### B CID2 ####[facility] S[address]lkvtvq[address] [place], [place] [address]Dr. Erasmo Smith Klebsiella aerogenes Not detected Normal NOT DETECTED [facility] Comment on above: Performed By: #### B CID2 ####[facility] [address]tofsr[address] [place], [place] [address]Dr. Erasmo Smith KPC Resistant Gene Not detected Normal NOT DETECTED [facility] Comment on above: Performed By: #### B CID2 ####[facility] Ei[address]dzofsm[address] [place], [place] [address]Dr. Erasmo Smith List. monocytogenes Not detected Normal NOT DETECTED [facility] Comment on above: Performed By: #### B CID2 ####[facility] [address]artx[address] [place], [place] [address]Dr. Erasmo Smith Mcr-1 Resistant Gene Not Applicable Normal NOT DETECTE D [facility] Comment on above: Performed By: #### B CID2 ####[facility] R[address]vmmahpgh[address] [place], [place] [address]Dr. Heavenaen Luis mecA/C Not Applicable Normal NOT DETECTED [facility] Comment on above: Performed By: #### B CID2 ####[facility] Wtdwuuosqr[address] [place], [place] [address]Dr. Erasmo Smith mecA/C MREJ Not Applicable Normal NOT DETECTED [facility] Comment on above: Performed By: #### B CID2 ####[facility] [address]ysgq[address] [place], [place] [address]Dr. Erasmo Smith N. meningitidis Not detected Normal NOT DETECTED [facility] Comment on above: Performed By: #### B CID2 ####[facility] Mrxygvlzcc[address] [place], [place] [address]Dr. Erasmo Smith NDM Resistant Gene Not Applicable Normal NOT DETECTED [facility] Comment on above: Performed By: #### B CID2 ####[facility] Gctenzwzax[address] [place], [place] [address]Dr. Erasmo Smith Oxa-48-like Not Applicable Normal NOT DETECTED [facility] Comment on above: Performed By: #### B CID2 ####[facility] Gcczlwl[address] [place], [place] [address]Dr. Erasmo Smith Proteus Not detected Normal NOT DETECTED [facility] Comment on above: Performed By: #### B CID2 ####[facility] Daftwithss[address] [place], [place] [address]Dr. Erasmo Smith Pseud. aeruginosa Not detected Normal NOT DETECTED [facility] Comment on above: Performed By: #### B CID2 ####[facility] Pbrwqdjsov[address] [place], [place] [address]Dr. Erasmo Smiht S. maltophilia Not detected Normal NOT DETECTED [facility] Comment on above: Performed By: #### B CID2 ####[facility] [address] [address]Dr. Erasmo Smith Salmonella Not detected Normal NOT DETECTED [facility] Comment on above: Performed By: #### B CID2 ####[facility] [address] [address]Dr. Erasmo Smith Seratia marcescens Not detected Normal NOT DETECTED [facility] Comment on above: Performed By: #### B CID2 ####[facility] [address] [place], [place] [address]Dr. Erasmo Smith Site: l ac Normal [facility] Comment on above: Performed By: #### B CID2 ####[facility] Fw[address]pd[address] [place], [place] [address]Dr. Erasmo Smith Staph. aureus Not detected Normal NOT DETECTED [facility] Comment on above: Performed By: #### B CID2 ####[facility] Z[address]gsirjck[address] [place], [place] [address]Dr. Erasmo Smith Staph. epidermidis Not detected Normal NOT DETECTED [facility] Comment on above: Performed By: #### B CID2 ####[facility] Y[address]ajnlslpr[address] [place], [place] [address]Dr. Erasmo Smith Staph. lugdunensis Not detected Normal NOT DETECTED [facility] Comment on above: Performed By: #### B CID2 ####[facility] Wq[address]wsvb[address] [place], [place] [address]Dr. Erasmo Smith Staphylococcus Not detected Normal NOT DETECTED [facility] Comment on above: Performed By: #### B CID2 ####[facility] [address] [address]Dr. Erasmo Smith Strep. agalactiae Not detected Normal NOT DETECTED [facility] Comment on above: Performed By: #### B CID2 ####[facility] Hirmyzhwng[address] [place], [place] [address]Dr. Erasmo Smith Strep. pneumoniae Not detected Normal NOT DETECTED [facility] Comment on above: Performed By: #### B CID2 ####[facility] [address] [address]Dr. Erasmo Smith Strep. pyogenes Not detected Normal NOT DETECTED [facility] Comment on above: Performed By: #### B CID2 ####[facility] E[address]xrumhgl[address] [place], [place] [address]Dr. Erasmo Smith Streptococcus Not detected Normal NOT DETECTED [facility] Comment on above: Performed By: #### B CID2 ####[facility] [address] [address]Dr. Erasmo Smith Fran/B Resist. Gene Not detected Normal NOT DETECTED [facility] Comment on above: Performed By: #### B CID2 ####[facility] [address]ts[address]oxwu[address] [place], [place] [address]Dr. Erasmo Smith VIM Resistant Gene Not Applicable Normal NOT DETECTED [facility] Comment on above: Performed By: #### B CID2 ####[facility] I[address]qyx[address] [place], [place] [address]DrMeena Smith BNPon 12-02-2022 Natriuretic peptide B (Bld) [Mass/Vol] 1059.0 pg/mL Normal <=1,800.0 [facility] Comment on above: Performed By: #### B BATTERY ASSEMBLER PLASTIC #### [facility] [address] [address] [address] Erasmo Smith CBC AUTO DIFFon 12-02-2022 BASO # 0.0 103/ul Normal 0.0-0.1 [facility] Comment on above: Performed By: #### C BC ####[facility] [address] [address]DrMeena Smith Basophils/100 WBC (Bld) 0.2 % Normal 0.2-2.0 [facility] Comment on above: Performed By: #### C BC ####[facility] [address] [place], [place] [address]DrMeena Smith EO # 0.0 103/ul Normal 0.0-0.7 [facility] Comment on above: Performed By: #### C BC ####[facility] [address] [place], [place] [address]Dr. Erasmo Smith Eosinophils/100 WBC (Bld) 0.0 % Critically low 0.9-7.0 [facility] Comment on above: Performed By: #### C BC ####[facility] [address] [address]Dr. Erasmo Smith Erythrocyte distribution width (RBC) [Ratio] 17.3 % Critically high 11.0-15.0 [facility] Comment on above: Performed By: #### C BC ####[facility] [address] [place], [place] [address]Dr. Erasmo Smith Hematocrit (Bld) [Volume fraction] 31.4 % Critically low 36.0-48.0 [facility] Comment on above: Performed By: #### C BC ####[facility] [address] [place], [place] [address]Dr. Erasmo Smith Hemoglobin (Bld) [Mass/Vol] 10.0 g/dL Critically low 12.0-16.0 [facility] Comment on above: Performed By: #### C BC ####[facility] [address] [place], [place] [address]Dr. Erasmo Smith IG # 0.06 10e3/ul Critically high 0.00-0.03 [facility] Comment on above: Performed By: #### C BC ####[facility] C[address]xxflqpdu[address] [place], [place] [address]Dr. Erasmo Smith IG % 0.4 % Normal 0.0-0.5 [facility] Comment on above: Performed By: #### C BC ####[facility] Itfe[address]ico[address] [place], [place] [address]Dr. Erasmo Smith LYMPH # 1.3 103/ul Normal 1.2-3.8 [facility] Comment on above: Performed By: #### C BC ####[facility] Dodztdopxg[address] [place], [place] [address]Dr. Erasmo Smith Lymphocytes/100 WBC (Bld) 8.1 % Critically low 20.5-60.0 [facility] Comment on above: Performed By: #### C BC ####[facility] [address] [address]Dr. Erasmo Smith MANUAL DIFF REQ NO Normal [facility] Comment on above: Performed By: #### C BC ####[facility] [address] [address]Dr. Erasmo Smith MCH (RBC) [Entitic mass] 25.6 pg Critically low 26.7-34.0 [facility] Comment on above: Performed By: #### C BC ####[facility] [address] [address]Dr. Erasmo Smith MCHC (RBC) [Mass/Vol] 31.8 g/dL Normal 29.9-35.2 [facility] Comment on above: Performed By: #### C BC ####[facility] [address] [address]Dr. Erasmo Luis MCV (RBC) [Entitic vol] 80.3 fL Critically low 81.0-99.0 [facility] Comment on above: Performed By: #### C BC ####[facility] [address] [address]Dr. Erasmo Luis MONO # 0.6 103/ul Normal 0.3-0.8 [facility] Comment on above: Performed By: #### C BC ####[facility] [address] [address]Dr. Heavenean Smith Monocytes/100 WBC (Bld) 3.7 % Normal 1.7-12.0 [facility] Comment on above: Performed By: #### C BC ####[facility] [address] [address]Dr. Heavenean Smith NEUT # 14.5 103/ul Critically high 1.4-6.5 [facility] Comment on above: Performed By: #### C BC ####[facility] [address] [address]Dr. Erasmo Smith Neutrophils/100 WBC (Bld) 87.6 % Critically high 43.0-75.0 [facility] Comment on above: Performed By: #### C BC ####[facility] [address] [place], [place] [address]Ag. Erasmo Smith Platelet mean volume (Bld) [Entitic vol] 10.0 fL Normal 9.5-13.5 [facility] Comment on above: Performed By: #### C BC ####[facility] [address] [place], [place] [address]Dg. Erasmo Smith PLT 206 103/ul Normal 150-450 [facility] Comment on above: Performed By: #### C BC ####[facility] [address] [place], [place] [address]Pi. Erasmo Smith RBC 3.91 106/ul Critically low 4.20-5.40 [facility] Comment on above: Performed By: #### C BC ####[facility] [address] [place], [place] [address]Nh. Erasmo Smith WBC 16.5 103/ul Critically high 4.0-11.0 [facility] Comment on above: Performed By: #### C BC ####[facility] [address] [place], [place] [address]Rx. Erasmo Smith ECHOCARDIO M/2D COMPLETEon 0 12-02-2022 ECHOCARDIO M/2D COMPLETE Patient: BREANN STARKS Exam Date: 12/02/2022 : 1945 Gender:F Ordering : RENÉE HOLMAN . Admission #: [id number] Family : DR LUISANA FISHER . Order #: [id number] CLICK HERE TO VIEW EXAM ECHOCARDIOGRAM REPORT PROCEDURE: CARDIO PULMONARY ECHOCARDIO M/2D COMP INDICATIONS: Elevated TROP, chest heaviness, COPD COMPARISON: None. DESCRIPTION: COMPLETE ECHOCARDIOGRAM Real-time transthoracic echocardiography with 2D, M-mode, spectral and color flow Doppler performed. QUALITY: Technical quality was adequate. LEFT VENTRICLE: Normal chamber size. Borderline left ventricular hypertrophy. Systolic function is normal. LV EF: Normal left ventricular ejection fraction, (55%). DIASTOLIC: Grade III diastolic dysfunction. ATRIAL SEPTUM: LEFT ATRIUM: Moderate dilatation. RIGHT ATRIUM: Mild dilatation. RIGHT VENTRICLE: Normal chamber size. Systolic function is normal. TRICUSPID VALVE: Normal mobility and thickness. No stenosis with trivial regurgitation. Doppler studies reveal moderately (45-60) elevated right sided pressures. Systolic function is normal. RVSP 47 mmHg MITRAL VALVE: Mildly thickened with normal mobility. No evidence of mitral valve stenosis. There is no mitral annular calcification. Trivial mitral regurgitation. AORTIC VALVE: Normal trileaflet appearance. No visible sclerosis. Normal leaflet mobility. No evidence of aortic valve stenosis. Trivial aortic regurgitation. AORTIC ROOT: Normal diameter and appearance. PULMONIC VALVE: Normal thickness and mobility. No stenosis. No regurgitation. PERICARDIUM: No evidence of pericardial effusion. IVC: IVC is dilated (2.7 cm) with no collapse. PLEURA: CONCLUSION: 1. Normal ventricular systolic function. LVEF is 55%. 2. Grade 3 diastolic dysfunction. 3. No significant valvular dysfunction. 4. Moderately elevated right-sided pressures. 5. No pericardial effusion. Adult Echocardiography Procedure Report Left Ventricle LVEDD (3.7 - 5.6 cm): 5.16 cm LVESD (2.2 - 4.0 cm): 3.80 cm LVIVS thickness (0.6 - 1.2 cm): 1.01 cm LVPW thickness (0.5 - 1.0 cm): 0.95 cm e': 0.09 m/s E - e': 14.75 LVOT Max Gradient: 4.82 mm[Hg] Peak Velocity (LVOT): 1.10 m/s LVOT Diameter 2.08 cm Left Ventricular Ejection Fraction: 55 % Left Atrium LA Volume Index (2D A2C): 103.63 ml, 103.63 ml Left Atrium Systolic Dimension: 4.40 cm Mitral Valve MV E to A Ratio: 2.05 Mitral Valve A-Wave Peak Velocity: 0.63 m/s Mitral Valve E-Wave Peak Velocity: 1.29 m/s Right Ventricle Aorta AO Root Diam: 3.01 cm Aortic Valve AoV Area (Peak Jovani): 2.34 cm2, 2.34 cm2 Peak Velocity(Antegrade Flow): 1.60 m/s Peak Gradient(Antegrade Flow): 10.21 mm[Hg] Tricuspid Valve Peak Velocity (Regurgitant Flow): 2.55 m/s, 2.81 m/s Peak Velocity: 0.49 m/s Pulmonic Valve Peak Velocity: 0.85 m/s, 0.79 m/s Peak Gradient: 2.92 mm[Hg], 2.49 mm[Hg] Right Atrium Right Atrium Systolic Pressure: 49.76 ml, 49.76 ml Dictated by: Balta Salazar M.D. on 12/02/2022 at 21:54 Approved by: Balta Salazar M.D. on 12/02/2022 at 21:58 Normal [facility] MAGNESIUMon 12-02-2022 Magnesium [Mass/Vol] 2.0 mg/dL Normal 1.8-2.4 [facility] Comment on above: Performed By: #### B BATTERY ASSEMBLER PLASTIC #### [facility] [address] [place] [address] Dr. Erasmo Smith PROF 14(COMP METB)on 023 Albumin [Mass/Vol] 2.7 g/dL Critically low 3.4-5.0 [facility] Comment on above: Performed By: #### B BATTERY ASSEMBLER PLASTIC #### [facility] [address] [place] [address] Dr. Erasmo Smith Albumin/Globulin [Mass ratio] 0.6 {ratio} Normal [facility] Comment on above: Performed By: #### B BATTERY ASSEMBLER PLASTIC #### [facility] [address] [place] [address] Dr. Erasmo Smith ALP [Catalytic activity/Vol] 128 U/L Critically high 46-116 [facility] Comment on above: Performed By: #### B BATTERY ASSEMBLER PLASTIC #### [facility] [address] [place] [address] Dr. Erasmo Smith ALT [Catalytic activity/Vol] 34 U/L Normal 14-59 [facility] Comment on above: Performed By: #### B BATTERY ASSEMBLER PLASTIC #### [facility] [address] [place] [address] Dr. Erasmo Smith Anion gap [Moles/Vol] 10.6 mmol/L Normal [facility] Comment on above: Performed By: #### B BATTERY ASSEMBLER PLASTIC #### [facility] [address] [place] [address] Dr. Erasmo Smith AST [Catalytic activity/Vol] 27 U/L Normal 15-37 [facility] Comment on above: Performed By: #### B BATTERY ASSEMBLER PLASTIC #### [facility] [address] [place] [address] Dr. Erasmo Smith Bilirubin [Mass/Vol] 0.5 mg/dL Normal 0.2-1.0 [facility] Comment on above: Performed By: #### B BATTERY ASSEMBLER PLASTIC #### [facility] [address] [place] [address] Dr. Erasmo Simth Calcium [Mass/Vol] 8.4 mg/dL Critically low 8.5-10.1 [facility] Comment on above: Performed By: #### B BATTERY ASSEMBLER PLASTIC #### [facility] [address] [place] [address] Dr. Erasmo Smith Chloride [Moles/Vol] 104 mmol/L Normal 98-107 [facility] Comment on above: Performed By: #### B BATTERY ASSEMBLER PLASTIC #### [facility] [address] [place] [address] Dr. Erasmo Smith CO2 [Moles/Vol] 26.2 mmol/L Normal 21.0-32.0 [facility] Comment on above: Performed By: #### B BATTERY ASSEMBLER PLASTIC #### [facility] [address] [place] [address] Dr. Erasmo Smith Creatinine [Mass/Vol] 0.52 mg/dL Critically low 0.55-1.02 [facility] Comment on above: Performed By: #### B BATTERY ASSEMBLER PLASTIC #### [facility] [address] [place] [address] Dr. Erasmo Smith EGFR-AF [place]ER >60 Normal >=60 [facility] Comment on above: Performed By: #### B BATTERY ASSEMBLER PLASTIC #### [facility] [address] [place] [address] Dr. Erasmo Smith EGFR-NON AF [place] >60 Normal >=60 [facility] Comment on above: Performed By: #### B BATTERY ASSEMBLER PLASTIC #### [facility] [address] [place] [address] Dr. Erasmo Smith Globulin (S) [Mass/Vol] 4.3 g/dL Normal [facility] Comment on above: Performed By: #### B BATTERY ASSEMBLER PLASTIC #### [facility] [address] [place] [address] Dr. Erasmo Smith Glucose [Mass/Vol] 135 mg/dL Critically high 74-106 T [facility] Comment on above: Performed By: #### B BATTERY ASSEMBLER PLASTIC #### [facility] [address] [address] [address] Erasmo Smith Potassium [Moles/Vol] 3.8 mmol/L Normal 3.5-5.1 [facility] Comment on above: Performed By: #### B BATTERY ASSEMBLER PLASTIC #### [facility] [address] [address] [address] Erasmo Smith Protein [Mass/Vol] 7.0 g/dL Normal 6.4-8.2 [facility] Comment on above: Performed By: #### B BATTERY ASSEMBLER PLASTIC #### [facility] [address] [address] [address] Erasmo Smith Sodium [Moles/Vol] 137 mmol/L Normal 136-145 [facility] Comment on above: Performed By: #### B BATTERY ASSEMBLER PLASTIC #### [facility] [address] [address] [address] Erasmo Smith Urea nitrogen [Mass/Vol] 16.0 mg/dL Normal 7.0-18.0 [facility] Comment on above: Performed By: #### B BATTERY ASSEMBLER PLASTIC #### [facility] [address] [address] [address] Erasmo Smith Urea nitrogen/Creatinine [Mass ratio] 30.8 mg/mg Normal [facility] Comment on above: Performed By: #### B BATTERY ASSEMBLER PLASTIC #### [facility] [address] [address] [address] Erasmo Smith PROTIMEon 12-02-2022 INR Coag (PPP) [Relative time] 4.39 {INR} Critically high [facility] Comment on above: Performed By: #### P T #### [facility] [address] [place] [address] Dr. Erasmo Smith INR GUIDELINES SEE BELOW Normal [facility] Comment on above: Result Comment: ABNER RED INR: 2.0 - 3.0 CONDITIONS NOT LISTED BELOW 2.5 - 3.5 FOR PROSTHETIC HEART VALVE REPLACEMENT 2.5 - 3.5 RECURRENT THROMBOSIS Performed By: #### P T #### [facility] [address] [address] [address] Erasmo Smith PT Coag (PPP) [Time] 42.8 s Critically high 9.0-11.6 [facility] Comment on above: Performed By: #### P T #### [facility] [address] [address] [address] Erasmo Smith UA RANDOM W/MICROSCOPICon BACTERIA NONE SEEN Normal NONE SEEN [facility] Comment on above: Performed By: #### U AMIC ####[facility] [address] [address]Dr. Erasmo Smith Bilirubin Ql (U) Negative Normal NEGATIVE [facility] Comment on above: Performed By: #### U AMIC ####[facility] [address] [address]Dr. Erasmo Smith CAST NONE SEEN Normal NONE SEEN [facility] Comment on above: Performed By: #### U AMIC ####[facility] [address] [address]Dr. Erasmo Smith Clarity (U) CLEAR Normal CLEAR [facility] Comment on above: Performed By: #### U AMIC ####[facility] [address] [address]Dr. Erasmo Smith Color (U) YELLOW Normal YELLOW [facility] Comment on above: Performed By: #### U AMIC ####[facility] [address] [address]Dr. Erasmo Smith Crystals LM Nom (Urine sed) NONE SEEN Normal NONE SEEN [facility] Comment on above: Performed By: #### U AMIC ####[facility] [address] [id number]. Erasmo Smith Epithelial cells LM Ql (Urine sed) RARE Normal NONE SEEN /RARE [facility] Comment on above: Performed By: #### U AMIC ####[facility] [address] [address]Dr. Erasmo Smith Glucose Ql (U) Negative Normal NEGATIVE [facility] Comment on above: Performed By: #### U AMIC ####[facility] [address] [address]Dr. Erasmo Smith Hemoglobin Ql (U) SMALL Abnormal NEGATIVE [facility] Comment on above: Performed By: #### U AMIC ####[facility] [address] [place], [place] [address]Dr. Erasmo Smith Ketones Ql (U) 15 mg/dl Abnormal NEGATIVE [facility] Comment on above: Performed By: #### U AMIC ####[facility] [address] [place], [place] [address]Dr. Erasmo Smith LEUKOCYTES Negative Normal NEGATIVE [facility] Comment on above: Performed By: #### U AMIC ####[facility] [address] [place], [place] [address]Dr. Erasmo Smith MUCOUS NONE SEEN Normal NONE SEEN [facility] Comment on above: Performed By: #### U AMIC ####[facility] [address] [place], [place] [address]Dr. Erasmo Smith Nitrite Ql (U) Negative Normal NEGATIVE [facility] Comment on above: Performed By: #### U AMIC ####[facility] [address] [place], [place] [address]Dr. Erasmo Smith pH (U) 6.0 [pH] Normal 5-9 [facility] Comment on above: Performed By: #### U AMIC ####[facility] [address] [place], [place] [address]Dr. Erasmo Smith RBC 0-2 Normal 0-2 [facility] Comment on above: Performed By: #### U AMIC ####[facility] [address] [place], [place] [address]Dr. Erasmo Smith SPEC GRAVITY 1.025 Normal 1.005-<=1.02 5 [facility] Comment on above: Performed By: #### U AMIC ####[facility] [address] [place], [place] [address]Dr. Erasmo Smith UA PROTEIN TRACE Normal NEGATIVE/ TRACE [facility] Comment on above: Performed By: #### U AMIC ####[facility] [address] [place] [id number] Erasmo Smith Urobilinogen Qn (U) 4 {Shraddha'U}/dL Abnormal 0.2 - 1.0 [facility] Comment on above: Performed By: #### U AMIC ####[facility] [address] [place], [place] [address]MeDr. Erasmo Smith WBC 0-2 Abnormal NONE SEEN [facility] Comment on above: Performed By: #### U AMIC ####[facility] [address] [id number]. Erasmo Smith CARDIAC ROSA ELENA 3-6on 3 CK [Catalytic activity/Vol] 53 U/L Normal 26-192 [facility] Comment on above: Performed By: #### C MREP #### [facility] [address] [address] [address] Erasmo Smith CK.MB [Mass/Vol] 0.90 ng/mL Normal <=3.60 [facility] Comment on above: Performed By: #### C MREP #### [facility] [address] [address] [address] Erasmo Smith HSTROP 116.7 pg/mL Critically high 4.0-51.3 [facility] Comment on above: Result Comment: CUT- OFF POINTS HAVE BEEN ESTABLISHED BASED ON THE FOURTH UNIVERSAL DEFINITIONS OF MYOCARDIAL INFARCTION. THE UPPER REFERENCE LIMIT (URL) OF TROPONIN, DEFINED THE 99TH PERCENTILE OF cTnI DISTRIBUTION IN A REFERENCE POPULATION, HAS BEEN CONFIRMED THE DECISION THRESHOLD FOR OR DIAGNOSIS. Performed By: #### C MREP #### [facility] [address] [address] [address] Erasmo Smith CK [Catalytic activity/Vol] 47 U/L Normal 26-192 [facility] Comment on above: Performed By: #### B BATTERY ASSEMBLER PLASTIC #### [facility] [address] [address] [address] Erasmo Smith CK.MB [Mass/Vol] 1.00 ng/mL Normal <=3.60 [facility] Comment on above: Performed By: #### B BATTERY ASSEMBLER PLASTIC #### [facility] [address] [address] [address] Erasmo Smith HSTROP 154.3 pg/mL Critically high 4.0-51.3 [facility] Comment on above: Result Comment: CUT- OFF POINTS HAVE BEEN ESTABLISHED BASED ON THE FOURTH UNIVERSAL DEFINITIONS OF MYOCARDIAL INFARCTION. THE UPPER REFERENCE LIMIT (URL) OF TROPONIN, DEFINED THE 99TH PERCENTILE OF cTnI DISTRIBUTION IN A REFERENCE POPULATION, HAS BEEN CONFIRMED THE DECISION THRESHOLD FOR OR DIAGNOSIS. Performed By: #### B BATTERY ASSEMBLER PLASTIC #### [facility] [address] [place] [address] Dr. Erasmo Smith CBC W MANUAL DIFFon 12-02-19 23 ATYPICAL LYMPH # Normal [facility] Comment on above: Performed By: #### C ALHAJIMAN #### [facility] [address] [place] [address] Dr. Erasmo Smith ATYPICAL LYMPH % Normal [facility] Comment on above: Performed By: #### C BCMAN #### [facility] [address] [place] [address] Dr. Erasmo Smith BAND # 0.6 103/ul Critically high 0.0-0.3 [facility] Comment on above: Performed By: #### C BCMAN #### [facility] [address] [place] [address] Dr. Erasmo Smith BAND % 3 % Normal 0-5 [facility] Comment on above: Performed By: #### C BCMAN #### [facility] [address] [place] [address] Dr. Erasmo Smith BASOM # 0.00 103/ul Normal 0.00-0.10 [facility] Comment on above: Performed By: #### C BCMAN #### [facility] [address] [place] [address] Dr. Erasmo Smith BASOM % 0.0 % Critically low 0.2-2.0 [facility] Comment on above: Performed By: #### C BCMAN #### [facility] [address] [place] [address] Dr. Erasmo Smith BLAST # Normal [facility] Comment on above: Performed By: #### C BCMAN #### [facility] [address] [address] [address] Erasmo Smith BLAST % Normal [facility] Comment on above: Performed By: #### C BCMAN #### [facility] [address] [place] [address] Dr. Erasmo Smith CORRECTED WBC Normal 4.0-11.0 [facility] Comment on above: Performed By: #### C BCMAN #### [facility] [address] [address] [address] Erasmo Smith EOS # 0.19 103/ul Normal 0.00-0.70 [facility] Comment on above: Performed By: #### C BCBLAISE #### [facility] [address] [place] [address] Dr. Erasmo Smith EOS% 1.0 % Normal 0.9-7.0 [facility] Comment on above: Performed By: #### C BCBLAISE #### [facility] [address] [place] [address] Dr. Erasmo Smith HCT 32.7 % Critically low 36.0-48.0 [facility] Comment on above: Performed By: #### C BCBLAISE #### [facility] [address] [place] [address] Dr. Erasmo Smith HGB 10.5 g/dl Critically low 12.0-16.0 [facility] Comment on above: Performed By: #### C BCBLAISE #### [facility] [address] [place] [address] Dr. Erasmo Smith LYMPHM # 0.76 103/ul Critically low 1.20-3.80 [facility] Comment on above: Performed By: #### C BCMAN #### [facility] [address] [place] [address] Dr. Erasmo Smith LYMPHM% 4.0 % Critically low 20.5-60.0 [facility] Comment on above: Performed By: #### C BCMAN #### [facility] [address] [place] [address] Dr. Erasmo Smith MCH 25.9 pg Critically low 26.7-34.0 [facility] Comment on above: Performed By: #### C ANGELA #### [facility] [address] [address] [address] Erasmo Smith MCHC 32.1 g/dl Normal 29.9-35.2 [facility] Comment on above: Performed By: #### C ANGELA #### [facility] [address] [address] [address] Erasmo Smith MCV 80.5 fL Critically low 81.0-99.0 [facility] Comment on above: Performed By: #### C ANGELA #### [facility] [address] [place] [address] Dr. Erasmo Smith METAMYELOCYTE # Normal [facility] Comment on above: Performed By: #### C ANGELA #### [facility] [address] [place] [address] Dr. Erasmo Smith METAMYELOCYTE % Normal [facility] Comment on above: Performed By: #### C ANGELA #### [facility] [address] [place] [address] Dr. Erasmo Smith MONOM# 1.14 103/ul Critically high 0.30-0.80 [facility] Comment on above: Performed By: #### C ANGELA #### [facility] [address] [place] [address] Dr. Erasmo Smith MONOM% 6.0 % Normal 1.7-12.0 [facility] Comment on above: Performed By: #### C ANGELA #### [facility] [address] [place] [address] Dr. Erasmo Smith MPV 9.4 fL Critically low 9.5-13.5 [facility] Comment on above: Performed By: #### C ANGELA #### [facility] [address] [place] [address] Dr. Erasmo Smith MYELOCYTE # Normal [facility] Comment on above: Performed By: #### C ANGELA #### [facility] [address] [place] [address] Dr. Erasmo Smith MYELOCYTE % Normal [facility] Comment on above: Performed By: #### C ANGELA #### [facility] [address] [address] [address] Erasmo Smith NRBC Normal [facility] Comment on above: Performed By: #### C ANGELA #### [facility] [address] [address] [address] Erasmo Smith PLT 195 103/ul Normal 150-450 [facility] Comment on above: Performed By: #### C ANGELA #### [facility] [address] [address] [address] Erasmo Smith RBC 4.06 106/ul Critically low 4.20-5.40 [facility] Comment on above: Performed By: #### C ANGELA #### [facility] [address] [address] [address] Erasmo Smith RDW 17.7 % Critically high 11.0-15.0 [facility] Comment on above: Performed By: #### C ANGELA #### [facility] [address] [address] [address] Erasmo Smith SEG # 16.34 103/ul Critically high 1.40-6.50 [facility] Comment on above: Performed By: #### C ANGELA #### [facility] [address] [address] [address] Erasmo Smith SEG % 86.0 % Critically high 43.0-75.0 [facility] Comment on above: Performed By: #### C ANGELA #### [facility] [address] [address] [address] Erasmo Smith WBC 19.0 103/ul Critically high 4.0-11.0 [facility] Comment on above: Performed By: #### C ANGELA #### [facility] [address] [place] [address] HEAD WO CONon 2022 CT HEAD WO CON CT HEAD WO CON 2022 1:15 PM EDT Provided History: Headache ICD-10: Headache Comparison: MRI from 10/08/2020. Technique: Using multidetector thin collimation helical acquisition technique, axial, coronal and sagittal CT images from the skull base to the vertex were obtained without intravenous contrast. Findings: No intracranial hemorrhage, mass effect, or midline shift. The ventricles are proportionate to the cerebral sulci. The colmenares to white matter differentiation of the cerebral hemispheres is preserved. The basal cisterns are patent. Bilateral pseudophakia. The visualized paranasal sinuses are clear. The mastoid air cells are clear. Impression: No acute intracranial pathology. Electronically authenticated by: SALOME MCCORMICK Date: 2022 14:50 Normal [facility] CULTURE BLOODon 2022 Microscopic examination of blood, culture Culture Observations: Aerobic and Anaerobic bottle positive. BCID: E. Coli Culture Observations: Refer to for VIOLET. Isolate 1 Escherichia coli Growth of Normal [facility] Comment on above: Performed By: #### B LDCX2 ####[facility] [address] [address]Dr. Erasmo Smith Covid-19 PCR (CVDTB)on 11-11 SARS-CoV-2 (COVID-19) RNA EMILY+probe Ql (Unsp spec) Not detected Normal NOT DETECTED [facility] Comment on above: Result Comment: When diagnostic testing is negative, the possibility of a false negative should be considered in the context of a patient's recent exposures and the presence of clinical signs and symptoms consistent with SARS-CoV-2. This test is not yet approved or cleared by the [place] FDA. When there are no FDA-approved or cleared tests available, and other criteria are met, FDA can make tests available under an emergency access mechanism called an Emergency Use Authorization (EUA). The EUA for this test is supported by the Senior Marketing Data Analyst of Health and Human Service's declaration that circumstances exist to justify the emergency use of in vitro diagnostics for the detection and/or diagnosis of the virus that causes COVID-19. This EUA will remain in effect for the duration of the COVID-19 declaration justifying emergency of IVDs, unless it is terminated or revoked by the FDA (after which the test may no longer be used). Performed By: #### C MREP #### [facility] [address] [place], [place] [address] Dr. Erasmo Smith LACTATE/LACTIC ACIDon 2022 Lactate [Moles/Vol] 1.2 mmol/L Normal 0.4-2.0 [facility] Comment on above: Performed By: #### L ACT ####[facility] [address] [address]Dr. Erasmo Smith PH VENOUS BLOODon 2022 PCO2 VENOUS 37.8 mmHg Critically low 40.0-52.0 [facility] Comment on above: Performed By: #### P HVEN ####[facility] [address] [address]Dr. Erasmo Smith pH VENOUS 7.417 Normal 7.330-7.430 [facility] Comment on above: Performed By: #### P HVEN ####[facility] [address] [address]DrMeena Smith PROF 14(COMP METB)on 023 Albumin [Mass/Vol] 3.1 g/dL Critically low 3.4-5.0 [facility] Comment on above: Performed By: #### H ALEXSANDER, CMP ####[facility] [address] [address]DrMeena Smith Albumin/Globulin [Mass ratio] 0.8 {ratio} Normal [facility] Comment on above: Performed By: #### H ALEXSANDER, CMP ####[facility] [address] [address]Dr. Erasmo Smith ALP [Catalytic activity/Vol] 194 U/L Critically high 46-116 [facility] Comment on above: Performed By: #### H STROPN, CMP ####[facility] [address] [address]Dr. Erasmo Smith ALT [Catalytic activity/Vol] 37 U/L Normal 14-59 [facility] Comment on above: Performed By: #### H STROPN, CMP ####[facility] [address] [address]Dr. Erasmo Smith Anion gap [Moles/Vol] 14.6 mmol/L Normal [facility] Comment on above: Performed By: #### H STROPN, CMP ####[facility] [address] [address]Dr. Erasmo Smith AST [Catalytic activity/Vol] 32 U/L Normal 15-37 [facility] Comment on above: Performed By: #### H STROPN, CMP ####[facility] [address] [address]Dr. Erasmo Smith Bilirubin [Mass/Vol] 1.0 mg/dL Normal 0.2-1.0 [facility] Comment on above: Performed By: #### H STROPN, CMP ####[facility] [address] [place], [place] [address]Dr. Erasmo Smith Calcium [Mass/Vol] 8.9 mg/dL Normal 8.5-10.1 [facility] Comment on above: Performed By: #### H STROPN, CMP ####[facility] [address] [place], [place] [address]Dr. Erasmo Smith Chloride [Moles/Vol] 103 mmol/L Normal 98-107 [facility] Comment on above: Performed By: #### H STROPN, CMP ####[facility] [address] [place], [place] [address]Dr. Erasmo Smith CO2 [Moles/Vol] 23.6 mmol/L Normal 21.0-32.0 [facility] Comment on above: Performed By: #### H STROPN, CMP ####[facility] [address] [place], [place] [address]Dr. Erasmo Smith Creatinine [Mass/Vol] 0.69 mg/dL Normal 0.55-1.02 [facility] Comment on above: Performed By: #### H STROPN, CMP ####[facility] [address] [place], [place] [address]Dr. Erasmo Smith EGFR-AF [place] >60 Normal >=60 [facility] Comment on above: Performed By: #### H STROPN, CMP ####[facility] [address] [place], [place] [address]Dr. Erasmo Smith EGFR-NON AF [place] >60 Normal >=60 [facility] Comment on above: Performed By: #### H STROPN, CMP ####[facility] [address] [address]Dr. Erasmo Smith Globulin (S) [Mass/Vol] 4.1 g/dL Normal [facility] Comment on above: Performed By: #### H STROPN, CMP ####[facility] [address] [address]Dr. Erasmo Smith Glucose [Mass/Vol] 121 mg/dL Critically high 74-106 T [facility] Comment on above: Performed By: #### H STROPN, CMP ####[facility] [address] [address]Dr. Erasmo Smith Potassium [Moles/Vol] 3.2 mmol/L Critically low 3.5-5.1 [facility] Comment on above: Performed By: #### H ALEXSANDER, CMP ####[facility] [address] [place], [place] [address]Dr. Erasmo Smith Protein [Mass/Vol] 7.2 g/dL Normal 6.4-8.2 [facility] Comment on above: Performed By: #### H ALEXSANDER, CMP ####[facility] [address] [place], [place] [address]Dr. Erasmo Smith Sodium [Moles/Vol] 138 mmol/L Normal 136-145 [facility] Comment on above: Performed By: #### H STROPN, CMP ####[facility] [address] [place], [place] [address]Dr. Erasmo Smith Urea nitrogen [Mass/Vol] 17.0 mg/dL Normal 7.0-18.0 [facility] Comment on above: Performed By: #### H STROPN, CMP ####[facility] [address] [place], [place] [address]Dr. Erasmo Smith Urea nitrogen/Creatinine [Mass ratio] 24.6 mg/mg Normal [facility] Comment on above: Performed By: #### H STROPN, CMP ####[facility] [address] [place], [place] [address]Dr. Erasmo Smith PROTIMEon 2022 INR Coag (PPP) [Relative time] 3.58 {INR} Normal [facility] Comment on above: Performed By: #### P T, PTT #### [facility] [address] [place] [address] Dr. Erasmo Smith INR GUIDELINES SEE BELOW Normal [facility] Comment on above: Result Comment: ABNER RED INR: 2.0 - 3.0 CONDITIONS NOT LISTED BELOW 2.5 - 3.5 FOR PROSTHETIC HEART VALVE REPLACEMENT 2.5 - 3.5 RECURRENT THROMBOSIS Performed By: #### P T, PTT #### [facility] [address] [place] [address] Dr. Erasmo Smith PT Coag (PPP) [Time] 35.3 s Critically high 9.0-11.6 [facility] Comment on above: Performed By: #### P T, PTT #### [facility] [address] [place] [address] Dr. Erasmo Smith PTTon 2022 aPTT Coag (Bld) [Time] 40.3 s Critically high 22.3-36. 2 [facility] Comment on above: Performed By: #### P T, PTT #### [facility] [address] [place] [address] Dr. Erasmo Smith TROPONIN, HIGH SENSITIVITYon 2022 HSTROP 194.7 pg/mL Critically high 4.0-51.3 [facility] Comment on above: Result Comment: CUT- OFF POINTS HAVE BEEN ESTABLISHED BASED ON THE FOURTH UNIVERSAL DEFINITIONS OF MYOCARDIAL INFARCTION. THE UPPER REFERENCE LIMIT (URL) OF TROPONIN, DEFINED THE 99TH PERCENTILE OF cTnI DISTRIBUTION IN A REFERENCE POPULATION, HAS BEEN CONFIRMED THE DECISION THRESHOLD FOR OR DIAGNOSIS. Performed By: #### C MREP #### [facility] [address] [place] [address] Dr. Erasmo Smith HSTROP 218.0 pg/mL Critically high 4.0-51.3 [facility] Comment on above: Result Comment: CUT- OFF POINTS HAVE BEEN ESTABLISHED BASED ON THE FOURTH UNIVERSAL DEFINITIONS OF MYOCARDIAL INFARCTION. THE UPPER REFERENCE LIMIT (URL) OF TROPONIN, DEFINED THE 99TH PERCENTILE OF cTnI DISTRIBUTION IN A REFERENCE POPULATION, HAS BEEN CONFIRMED THE DECISION THRESHOLD FOR OR DIAGNOSIS. Performed By: #### B BATTERY ASSEMBLER PLASTIC #### [facility] [id number] Erasmo Smith XR CHEST 1 Von 2022 XR CHEST 1 V EXAMINATION: XR CHEST 1 V HISTORY: COUGH COMPARISON: 02/16/2022 TECHNIQUE: AP portable FINDINGS: LUNGS: No significant pulmonary parenchymal abnormalities. VASCULATURE: No increased pulmonary vasculature. PLEURA: No pneumothorax, effusion, or pleural thickening. CARDIAC: No cardiomegaly or cardiac silhouette abnormality. MEDIASTINUM: No visible mass or adenopathy. Left pacemaker BONES: Moderate degenerative disc disease and spondylosis without visible acute abnormalities. Left shoulder reverse arthroplasty OTHER: Negative. IMPRESSION: No acute disease. Electronically authenticated by: HONG ALSTON Date: 2022 14:18 Normal [facility] Lab Reportson 11-30-2022 Lab Reports [id number] #[id number]:127 Normal [facility] MG MAMM SCREEN 3D TOÑITO CADon 11-26-2022 MG MAMM SCREEN 3D TOÑITO CAD Patient: BREANN STARKS Exam Date: 11/26/2022 : 1945 Gender:F Ordering : DR LUISANA FISHER . Admission #: [id number] Family : Order #: [id number] CLICK HERE TO VIEW EXAM RADIOLOGY REPORT PROCEDURE: MAMMOGRAM SCREENING 3D BILATERAL CAD COMPARISON: MG MAMM SCREEN TOÑITO W CAD, 08/15/2017. MG MAMM TOÑITO SCRN W CAD DIG, 03/26/2015. MG MAMM TOÑITO DIAG W CAD DIG, 01/29/2014. DIGITIZED_MAMMO, 06/06/1988. INDICATIONS: Screening mammography Calculator Name NCI Breast Cancer Risk Assessment Tool 5 Year Breast Cancer Risk 1.40% Lifetime Breast Cancer Risk 3.20% Personal Breast Cancer No Personal Ovarian Cancer No Treatments None Family Cancers None LOCATION: [facility] BREAST COMPOSITION: Heterogeneously dense,which may obscure small masses. FINDINGS: DIAGNOSTIC CATEGORY 1--NEGATIVE. RIGHT BREAST: No significant suspicious finding. No significant change has occurred. LEFT BREAST: No significant suspicious finding. No significant change has occurred. RECOMMENDATIONS: ROUTINE MAMMOGRAM AND CLINICAL EVALUATION IN 12 MONTHS. PLEASE NOTE: A NORMAL MAMMOGRAM DOES NOT EXCLUDE THE POSSIBILITY OF BREAST CANCER. A CLINICALLY SUSPICIOUS PALPABLE LUMP SHOULD BE BIOPSIED. Dictated by: Paula Delgado M.D. on 11/26/2022 at 14:10 Approved by: Paula Delgado M.D. on 11/26/2022 at 14:13 [facility] Office Visiton 11-10-2022 Follow-up visit [id number] Breann Starks 1945 F Date Provider Department Center 11/10/2022 CECILIO CALLAWAY CARD [facility] Family History Family history unknown: Yes Level of Service:83567 [place] OFFICE/OUTPATIENT ESTABLISHED LOW MDM 20-29 MIN Reason for Visit and Comments: Follow-up [861546] [facility] Refillon 09-18-2022 Refill [id number] Breann Starks T 1945 Date Provider Department Center 09/18/2022 YANCY IVERSON [facility] Perdue Count Family History Family history unknown: Yes Reason for Visit and Comments: Med Refill [754057] Normal [facility] PROF 14(COMP METB)on 022 Albumin [Mass/Vol] 3.8 g/dL Normal 3.4-5.0 [facility] Comment on above: Performed By: #### C MREP #### [facility] [address] [place] [address] Dr. Erasmo Smith Albumin/Globulin [Mass ratio] 0.8 {ratio} Normal [facility] Comment on above: Performed By: #### C MREP #### [facility] [address], [place] [address] Dr. Erasmo Smith ALP [Catalytic activity/Vol] 102 U/L Normal 46-116 [facility] Comment on above: Performed By: #### C MREP #### [facility] [address], [place] [address] Dr. Erasmo Simth ALT [Catalytic activity/Vol] 47 U/L Normal 14-59 [facility] Comment on above: Performed By: #### C MREP #### [facility] [address] [address] [address] Erasmo Smith Anion gap [Moles/Vol] 12.5 mmol/L Normal [facility] Comment on above: Performed By: #### C MREP #### [facility] [address] [address] [address] Erasmo Smith AST [Catalytic activity/Vol] 36 U/L Normal 15-37 [facility] Comment on above: Performed By: #### C MREP #### [facility] [address] [address] [address] Erasmo Smith Bilirubin [Mass/Vol] 0.3 mg/dL Normal 0.2-1.0 [facility] Comment on above: Performed By: #### C MREP #### [facility] [address] [address] [address] Erasmo Smith Calcium [Mass/Vol] 8.9 mg/dL Normal 8.5-10.1 [facility] Comment on above: Performed By: #### C MREP #### [facility] [address] [address] [address] Erasmo Smith Chloride [Moles/Vol] 106 mmol/L Normal 98-107 [facility] Comment on above: Performed By: #### C MREP #### [facility] [address] [address] [address] Erasmo Smith CO2 [Moles/Vol] 26.9 mmol/L Normal 21.0-32.0 [facility] Comment on above: Performed By: #### C MREP #### [facility] [address] [address] [address] Erasmo Smith Creatinine [Mass/Vol] 0.79 mg/dL Normal 0.55-1.02 [facility] Comment on above: Performed By: #### C MREP #### [facility] [address] [address] [address] Erasmo Smith EGFR-AF [place] >60 Normal >=60 [facility] Comment on above: Performed By: #### C MREP #### [facility] [address] [place] [address] Dr. Erasmo Smith EGFR-NON AF [place] >60 Normal >=60 [facility] Comment on above: Performed By: #### C MREP #### [facility] [address] [address] [address] Erasmo Smith Globulin (S) [Mass/Vol] 4.6 g/dL Normal [facility] Comment on above: Performed By: #### C MREP #### [facility] [address] [address] [address] Erasmo Smith Glucose [Mass/Vol] 102 mg/dL Normal 74-106 [facility] Comment on above: Performed By: #### C MREP #### [facility] [address] [place] [address] Dr. Erasmo Smith Potassium [Moles/Vol] 4.4 mmol/L Normal 3.5-5.1 [facility] Comment on above: Performed By: #### C MREP #### [facility] [address] [place] [address] Dr. Erasmo Smith Protein [Mass/Vol] 8.4 g/dL Critically high 6.4-8.2 T [facility] Comment on above: Performed By: #### C MREP #### [facility] [address] [place] [address] Dr. Erasmo Smith Sodium [Moles/Vol] 141 mmol/L Normal 136-145 [facility] Comment on above: Performed By: #### C MREP #### [facility] [address] [address] [address] rEasmo Smith Urea nitrogen [Mass/Vol] 28.0 mg/dL Critically high 7.0-18.0 [facility] Comment on above: Performed By: #### C MREP #### [facility] [address] [place] [address] Dr. Erasmo Smith Urea nitrogen/Creatinine [Mass ratio] 35.4 mg/mg Normal [facility] Comment on above: Performed By: #### C MREP #### [facility] [address] [place] [address] Dr. Erasmo Smith CBC AUTO DIFFon 07-12-2022 BASO # 0.1 103/ul Normal 0.0-0.1 [facility] Comment on above: Performed By: #### B BATTERY ASSEMBLER PLASTIC #### [facility] [address] [address] [address] Erasmo Smith Basophils/100 WBC (Bld) 0.5 % Normal 0.2-2.0 [facility] Comment on above: Performed By: #### B BATTERY ASSEMBLER PLASTIC #### [facility] [address] [place] [address] Dr. Erasmo Smith EO # 0.2 103/ul Normal 0.0-0.7 [facility] Comment on above: Performed By: #### B BATTERY ASSEMBLER PLASTIC #### [facility] [address] [place] [address] Dr. Erasmo Smith Eosinophils/100 WBC (Bld) 2.5 % Normal 0.9-7.0 [facility] Comment on above: Performed By: #### B BATTERY ASSEMBLER PLASTIC #### [facility] [address] [place] [address] Dr. Erasmo Smith Erythrocyte distribution width (RBC) [Ratio] 17.2 % Critically high 11.0-15.0 [facility] Comment on above: Performed By: #### B BATTERY ASSEMBLER PLASTIC #### [facility] [address] [place] [address] Dr. Erasmo Smith Hematocrit (Bld) [Volume fraction] 35.0 % Critically low 36.0-48.0 [facility] Comment on above: Performed By: #### B BATTERY ASSEMBLER PLASTIC #### [facility] [address] [place] [address] Dr. Erasmo Smith Hemoglobin (Bld) [Mass/Vol] 11.3 g/dL Critically low 12.0-16.0 [facility] Comment on above: Performed By: #### B BATTERY ASSEMBLER PLASTIC #### [facility] [address] [place] [address] Dr. Erasmo Smith IG # 0.02 10e3/ul Normal 0.00-0.03 [facility] Comment on above: Performed By: #### B BATTERY ASSEMBLER PLASTIC #### [facility] [address] [place] [address] Dr. Erasmo Smith IG % 0.2 % Normal 0.0-0.5 [facility] Comment on above: Performed By: #### B BATTERY ASSEMBLER PLASTIC #### [facility] [address] [place] [address] Dr. Erasmo Smith LYMPH # 2.3 103/ul Normal 1.2-3.8 [facility] Comment on above: Performed By: #### B BATTERY ASSEMBLER PLASTIC #### [facility] [address] [place] [address] Dr. Erasmo Smith Lymphocytes/100 WBC (Bld) 25.4 % Normal 20.5-60.0 [facility] Comment on above: Performed By: #### B BATTERY ASSEMBLER PLASTIC #### [facility] [address] [place] [address] Dr. Erasmo Smith MANUAL DIFF REQ NO Normal [facility] Comment on above: Performed By: #### B BATTERY ASSEMBLER PLASTIC #### [facility] [address] [place] [address] Dr. Erasmo Smith MCH (RBC) [Entitic mass] 25.5 pg Critically low 26.7-34.0 [facility] Comment on above: Performed By: #### B BATTERY ASSEMBLER PLASTIC #### [facility] [address] [place] [address] Dr. Erasmo Smith MCHC (RBC) [Mass/Vol] 32.3 g/dL Normal 29.9-35.2 [facility] Comment on above: Performed By: #### B BATTERY ASSEMBLER PLASTIC #### [facility] [address] [place] [address] Dr. Erasmo Smith MCV (RBC) [Entitic vol] 78.8 fL Critically low 81.0-99.0 [facility] Comment on above: Performed By: #### B BATTERY ASSEMBLER PLASTIC #### [facility] [address] [place] [address] Dr. Erasmo Smith MONO # 0.7 103/ul Normal 0.3-0.8 [facility] Comment on above: Performed By: #### B BATTERY ASSEMBLER PLASTIC #### [facility] [address] [place] [address] Dr. Erasmo Smith Monocytes/100 WBC (Bld) 7.5 % Normal 1.7-12.0 [facility] Comment on above: Performed By: #### B BATTERY ASSEMBLER PLASTIC #### [facility] [address] [place] [address] Dr. Erasmo Smith NEUT # 5.9 103/ul Normal 1.4-6.5 [facility] Comment on above: Performed By: #### B BATTERY ASSEMBLER PLASTIC #### [facility] [address] [place] [address] Dr. Erasmo Smith Neutrophils/100 WBC (Bld) 63.9 % Normal 43.0-75.0 [facility] Comment on above: Performed By: #### B BATTERY ASSEMBLER PLASTIC #### [facility] [address] [place] [address] Dr. Erasmo Smith Platelet mean volume (Bld) [Entitic vol] 9.0 fL Critically low 9.5-13.5 [facility] Comment on above: Performed By: #### B BATTERY ASSEMBLER PLASTIC #### [facility] [address] [place] [address] Dr. Erasmo Smith PLT 305 103/ul Normal 150-450 [facility] Comment on above: Performed By: #### B BATTERY ASSEMBLER PLASTIC #### [facility] [address] [place] [address] Dr. Erasmo Smith RBC 4.44 106/ul Normal 4.20-5.40 [facility] Comment on above: Performed By: #### B BATTERY ASSEMBLER PLASTIC #### [facility] [address] [place] [address] Dr. Erasmo Smith WBC 9.2 103/ul Normal 4.0-11.0 [facility] Comment on above: Performed By: #### B BATTERY ASSEMBLER PLASTIC #### [facility] [address] [place] [address] CHEST WO CONon 05-27-2022 CT CHEST WO CON EXAMINATION: CT CHEST WO CON HISTORY: Lung field abnormal ; follow-up right lower lobe infiltrates COMPARISON: CT chest 02/24/2022 TECHNIQUE: Axial, Coronal, and Sagittal images were created without the administration of IV contrast material. Dose reduction techniques were achieved by using automated exposure control and/or adjustment of mA and/or kV according to patient size and/or use of iterative reconstruction technique. FINDINGS: LUNGS: Mild emphysematous changes. No infiltrates, mass, or nodules. PLEURA: No mass, effusion, or pneumothorax. VASCULATURE: No abnormality. ELY: No mass or adenopathy. MEDIASTINUM: No mass or adenopathy. CARDIAC: No enlargement or pericardial thickening. AORTA: No aneurysm or dissection. CHEST WALL: No mass or axillary adenopathy. BONES: Prior left shoulder replacement. LIMITED ABDOMEN: Stable small hepatic hypodensity favoring a cyst or hemangioma. Limited images of the upper abdomen. OTHER: Cardiac pacer within upper left chest wall. IMPRESSION: 1. Clearing of previously seen right lower lobe infiltrates. No suspicious lung findings. 2. Mild emphysematous changes. Electronically authenticated by: PAULA DELGADO Date: 2022-05-27 15:27 Normal [facility] HEMOGLOBINon 04-20-2022 Hemoglobin (Bld) [Mass/Vol] 10.6 g/dL Critically low 12.0-16.0 [facility] Comment on above: Performed By: #### H GB ####[facility] [address] [id number]. Erasmo Smith CULTURE SPUTUMon 04-02-2022 CULTURE SPUTUM Isolate 1 Pseudomonas aeruginosa Light growth of ORGANISM 1 Pseudomonas aeruginosa ANTIBIOTIC M.I.C RX STATUS Piperacillin/Tazobac saez 8 S F Ceftazidime 2 S F Imipenem 1 S F Amikacin <=2 S F Gentamicin <=1 S F Tobramycin <=1 S F Ciprofloxacin <=0.25 S F Levofloxacin 0.25 S F Normal [facility] Comment on above: Performed By: #### S PUTCX ####[facility] [address] [id number]. Erasmo Smith CYTOLOGYon 03-30-2022 SENT TO REF LAB 03/31/22 Normal [facility] Comment on above: Performed By: #### C YTO #### [facility] [address], [place] [address] Dr. Erasmo Smith SPUTUM GRAM STAINon 03-30-20 COMMENTS Normal [facility] Comment on above: Performed By: #### B BATTERY ASSEMBLER PLASTIC #### [facility] [address] [address] [address] Erasmo Smith DIPHTHEROIDS Normal [facility] Comment on above: Performed By: #### B BATTERY ASSEMBLER PLASTIC #### [facility] [address] [address] [address] Erasmo Smith EPITHELIALS <25 Normal [facility] Comment on above: Performed By: #### B BATTERY ASSEMBLER PLASTIC #### [facility] [address] [address] [address] Erasmo Smith FUNGAL ELEMENTS Normal [facility] Comment on above: Performed By: #### B BATTERY ASSEMBLER PLASTIC #### [facility] [address] [address] [address] Erasmo Smith GRAM NEG BACILLI FEW [facility] Comment on above: Performed By: #### B BATTERY ASSEMBLER PLASTIC #### [facility] [address] [address] [address] Erasmo CINTRON NEG DIPPLOCOCCI [facility] Comment on above: Performed By: #### B BATTERY ASSEMBLER PLASTIC #### [facility] [address] [address] [address] Erasmo CINTRON POS BACILLI [facility] Comment on above: Performed By: #### B BATTERY ASSEMBLER PLASTIC #### [facility] [address] [address] [address] Erasmo Smith GRAM POSITIVE COCCI MANY Normal [facility] Comment on above: Performed By: #### B BATTERY ASSEMBLER PLASTIC #### [facility] [address] [address] [address] Erasmo Smith WBC (Bld) [#/Vol] 10*3/uL Normal [facility] Comment on above: Performed By: #### B BATTERY ASSEMBLER PLASTIC #### [facility] [address] [address] [address] Erasmo Smith SPUTUM CULTUREon 03-01-2022 Epithelial cells LM Ql (Urine sed) Few Normal [facility] Comment on above: Performed By: #### C XSPTUM ####[facility] [address] [address]Dr. Erasmo Smith Gram Stain Evaluation Comment Normal [facility] Comment on above: Result Comment: This specimen is of good quality and is acceptable for routine bacterial culture. Performed By: #### C XSPTUM ####[facility] [address] [address]Dr. Erasmo Smith Lower Respiratory Culture Final report Normal [facility] Comment on above: Performed By: #### C XSPTUM ####[facility] [address] [address]Dr. Erasmo Smith Result 1 Comment Normal [facility] Comment on above: Result Comment: Few gram positive cocci Performed By: #### C XSPTUM ####[facility] [address] [address]Dr. Erasmo Smith Result Comment: Rout ine respiratory adria Result 2 Normal [facility] Comment on above: Performed By: #### C XSPTUM ####[facility] [address] [place], [place] [address]Dr. Erasmo Smith Result 3 Normal [facility] Comment on above: Performed By: #### C XSPTUM ####[facility] [address] [place], [place] [address]Dr. Erasmo Smith Result 4 Normal [facility] Comment on above: Performed By: #### C XSPTUM ####[facility] [address] [place], [place] [address]Dr. Erasmo Smith White Blood Cells Few Normal [facility] Comment on above: Performed By: #### C XSPTUM ####[facility] [address] [place], [place] [address]Dr. Earsmo Smith BNPon 02-24-2022 Natriuretic peptide B (Bld) [Mass/Vol] 319.0 pg/mL Normal <=900.0 [facility] Comment on above: Performed By: #### B BATTERY ASSEMBLER PLASTIC #### [facility] [address] [place] [address] Dr. Erasmo Smith CBC AUTO DIFFon 02-24-2022 BASO # 0.1 103/ul Normal 0.0-0.1 [facility] Comment on above: Performed By: #### C MREP #### [facility] [address] [address] [address] Erasmo Smith Basophils/100 WBC (Bld) 0.5 % Normal 0.2-2.0 [facility] Comment on above: Performed By: #### C MREP #### [facility] [address] [place] [address] Dr. Erasmo Smith EO # 0.3 103/ul Normal 0.0-0.7 [facility] Comment on above: Performed By: #### C MREP #### [facility] [address] [place] [address] Dr. Erasmo Smith Eosinophils/100 WBC (Bld) 3.1 % Normal 0.9-7.0 [facility] Comment on above: Performed By: #### C MREP #### [facility] [address] [place] [address] Dr. Erasmo Smith Erythrocyte distribution width (RBC) [Ratio] 15.1 % Critically high 11.0-15.0 [facility] Comment on above: Performed By: #### C MREP #### [facility] [address] [place] [address] Dr. Erasmo Smith Hematocrit (Bld) [Volume fraction] 33.9 % Critically low 36.0-48.0 [facility] Comment on above: Performed By: #### C MREP #### [facility] [address] [place] [address] Dr. Erasmo Smith Hemoglobin (Bld) [Mass/Vol] 10.7 g/dL Critically low 12.0-16.0 [facility] Comment on above: Performed By: #### C MREP #### [facility] [address] [place] [address] Dr. Erasmo Smith IG # 0.03 10e3/ul Normal 0.00-0.03 [facility] Comment on above: Performed By: #### C MREP #### [facility] [address] [place] [address] Dr. Erasmo Smith IG % 0.3 % Normal 0.0-0.5 [facility] Comment on above: Performed By: #### C MREP #### [facility] [address] [address] [address] Erasmo Smith LYMPH # 2.8 103/ul Normal 1.2-3.8 [facility] Comment on above: Performed By: #### C MREP #### [facility] [address] [address] [address] Erasmo Smith Lymphocytes/100 WBC (Bld) 30.6 % Normal 20.5-60.0 [facility] Comment on above: Performed By: #### C MREP #### [facility] [address] [address] [address] Erasmo Smith MANUAL DIFF REQ NO Normal [facility] Comment on above: Performed By: #### C MREP #### [facility] [address] [address] [address] Erasmo Smith MCH (RBC) [Entitic mass] 26.9 pg Normal 26.7-34.0 [facility] Comment on above: Performed By: #### C MREP #### [facility] [address] [place] [address] Dr. Erasmo Smith MCHC (RBC) [Mass/Vol] 31.6 g/dL Normal 29.9-35.2 [facility] Comment on above: Performed By: #### C MREP #### [facility] [address] [place] [address] Dr. Erasmo Smith MCV (RBC) [Entitic vol] 85.2 fL Normal 81.0-99.0 [facility] Comment on above: Performed By: #### C MREP #### [facility] [address] [address] [address] Erasmo Smith MONO # 0.7 103/ul Normal 0.3-0.8 [facility] Comment on above: Performed By: #### C MREP #### [facility] [address] [address] [address] Erasmo Smith Monocytes/100 WBC (Bld) 7.9 % Normal 1.7-12.0 [facility] Comment on above: Performed By: #### C MREP #### [facility] [address] [address] [address] Erasmo Smith NEUT # 5.3 103/ul Normal 1.4-6.5 [facility] Comment on above: Performed By: #### C MREP #### [facility] [address] [address] [address] Earsmo Smith Neutrophils/100 WBC (Bld) 57.6 % Normal 43.0-75.0 [facility] Comment on above: Performed By: #### C MREP #### [facility] [address] [address] [address] Erasmo Smith Platelet mean volume (Bld) [Entitic vol] 9.0 fL Critically low 9.5-13.5 [facility] Comment on above: Performed By: #### C MREP #### [facility] [address] [place] [address] Dr. Erasmo Smith PLT 249 103/ul Normal 150-450 [facility] Comment on above: Performed By: #### C MREP #### [facility] [address] [place] [address] Dr. Erasmo Smith RBC 3.98 106/ul Critically low 4.20-5.40 [facility] Comment on above: Performed By: #### C MREP #### [facility] [address] [place] [address] Dr. Erasmo Smith WBC 9.1 103/ul Normal 4.0-11.0 [facility] Comment on above: Performed By: #### C MREP #### [facility] [address] [place] [address] Dr. Erasmo Smith CTA CHEST WO W CONon 06-15-2 022 CTA CHEST WO W CON EXAMINATION: CTA CHEST WO W CON HISTORY: SHORTNESS OF BREATH , acute chest pain COMPARISON: CTA chest 07/20/2021 TECHNIQUE: Multi-planar CT images were created with IV contrast. Axial, Coronal, and Sagittal images. Dose reduction techniques were achieved by using automated exposure control and/or adjustment of mA and/or kV according to patient size and/or use of iterative reconstruction technique. 3-D reconstruction was performed on a separate workstation. FINDINGS: VASCULATURE: No pulmonary embolism or abnormal opacity. LUNGS: 2.1 cm rounded, poorly marginated opacity within superior segment of right lower lobe. PLEURA: No mass, effusion, or pneumothorax. ELY: No mass or adenopathy. MEDIASTINUM: No mass or adenopathy. CARDIAC: No enlargement, pericardial effusion, or pericardial thickening. AORTA: No aneurysm or dissection. CHEST WALL: No mass or axillary adenopathy. Cardiac pacer. BONES: No bone lesion or fracture. LIMITED ABDOMEN: Stable small round hypodensity within right hepatic dome favoring a cyst or hemangioma. Limited images of the upper abdomen. OTHER: Negative. IMPRESSION: 1. No pulmonary embolism. 2. New rounded opacity within right lower lobe; focal area of acute infectious infiltrates versus developing malignancy; correlate with clinical symptoms. Follow-up CT imaging of the chest in one month following treatment is recommended to document clearing. Electronically authenticated by: PAULA DELGADO Date: 2022-02-24 18:24 Normal [facility] D-DIMERon 02-24-2022 D-DIMER 1.36 mg/L FEU Critically high <=0.59 [facility] Comment on above: Performed By: #### D DIM #### [facility] [address] [address] [address] Erasmo Smith D-DIMER COMMENTS SEE BELOW Normal [facility] Comment on above: Result Comment: Incr eases in D-Dimer concentration observed with thromboembolic events can be variable due to localization, size, and age of the thrombus. Therefore, a thromboembolic event cannot be diagnosed with certainty on the basis of the reference range. D-Dimers may also be elevated for a variety of disorders including: advanced age, , coronary disease, cancer, liver disease, infection, inflammation, hematoma, DIC, trauma, post-surgery, diabetes, thrombolytic or anticoagulant therapy, stress, and generalized hospitalization. Performed By: #### D DIM #### [facility] [address] [address] [address] Erasmo Smith PROF 14(COMP METB)on 022 Albumin [Mass/Vol] 3.6 g/dL Normal 3.4-5.0 [facility] Comment on above: Performed By: #### C MREP #### [facility] [address] [place] [address] Dr. Erasmo Smith Albumin/Globulin [Mass ratio] 0.8 {ratio} Normal [facility] Comment on above: Performed By: #### C MREP #### [facility] [address] [place] [address] Dr. Erasmo Smith ALP [Catalytic activity/Vol] 95 U/L Normal 46-116 [facility] Comment on above: Performed By: #### C MREP #### [facility] [address] [place] [address] Dr. Erasmo Smith ALT [Catalytic activity/Vol] 45 U/L Normal 14-59 [facility] Comment on above: Performed By: #### C MREP #### [facility] [address] [place] [address] Dr. Erasmo Smith Anion gap [Moles/Vol] 15.9 mmol/L Normal [facility] Comment on above: Performed By: #### C MREP #### [facility] [address] [place] [address] Dr. Erasmo Smith AST [Catalytic activity/Vol] 33 U/L Normal 15-37 [facility] Comment on above: Performed By: #### C MREP #### [facility] [address] [place] [address] Dr. Erasmo Smith Bilirubin [Mass/Vol] 0.5 mg/dL Normal 0.2-1.0 [facility] Comment on above: Performed By: #### C MREP #### [facility] [address] [place] [address] Dr. Erasmo Smith Calcium [Mass/Vol] 9.1 mg/dL Normal 8.5-10.1 [facility] Comment on above: Performed By: #### C MREP #### [facility] [address] [place] [address] Dr. Erasmo Smith Chloride [Moles/Vol] 103 mmol/L Normal 98-107 [facility] Comment on above: Performed By: #### C MREP #### [facility] [address] [place] [address] Dr. Erasmo Smith CO2 [Moles/Vol] 25.1 mmol/L Normal 21.0-32.0 [facility] Comment on above: Performed By: #### C MREP #### [facility] [address] [place] [address] Dr. Erasmo Smith Creatinine [Mass/Vol] 0.77 mg/dL Normal 0.55-1.02 [facility] Comment on above: Performed By: #### C MREP #### [facility] [address] [address] [address] Erasmo Smith EGFR-AF [place] >60 Normal >=60 [facility] Comment on above: Performed By: #### C MREP #### [facility] [address] [place] [address] Dr. Erasmo Smith EGFR-NON AF [place] >60 Normal >=60 [facility] Comment on above: Performed By: #### C MREP #### [facility] [address] [place] [address] Dr. Erasmo Smith Globulin (S) [Mass/Vol] 4.3 g/dL Normal [facility] Comment on above: Performed By: #### C MREP #### [facility] [address] [place] [address] Dr. Erasmo Smith Glucose [Mass/Vol] 92 mg/dL Normal 74-106 [facility] Comment on above: Performed By: #### C MREP #### [facility] [address] [place] [address] Dr. Erasmo Smith Potassium [Moles/Vol] 4.0 mmol/L Normal 3.5-5.1 [facility] Comment on above: Performed By: #### C MREP #### [facility] [address] [place] [address] Dr. Erasmo Smith Protein [Mass/Vol] 7.9 g/dL Normal 6.4-8.2 [facility] Comment on above: Performed By: #### C MREP #### [facility] [address] [place] [address] Dr. Erasmo Smith Sodium [Moles/Vol] 140 mmol/L Normal 136-145 [facility] Comment on above: Performed By: #### C MREP #### [facility] [address] [address] [address] Erasmo Smith Urea nitrogen [Mass/Vol] 17.0 mg/dL Normal 7.0-18.0 [facility] Comment on above: Performed By: #### C MREP #### [facility] [address] [address] [address] Erasmo Smith Urea nitrogen/Creatinine [Mass ratio] 22.1 mg/mg Normal [facility] Comment on above: Performed By: #### C MREP #### [facility] [address] [address] [address] Erasmo Smith PROTIMEon 02-24-2022 INR Coag (PPP) [Relative time] 2.28 {INR} Normal [facility] Comment on above: Performed By: #### P T, PTT ####[facility] [address] [place], [place] [address]Dr. Erasmo Smith INR GUIDELINES SEE BELOW Normal [facility] Comment on above: Result Comment: ABNER RED INR: 2.0 - 3.0 CONDITIONS NOT LISTED BELOW 2.5 - 3.5 FOR PROSTHETIC HEART VALVE REPLACEMENT 2.5 - 3.5 RECURRENT THROMBOSIS Performed By: #### P T, PTT ####[facility] [address] [address]DrMeena Smith PT Coag (PPP) [Time] 23.3 s Critically high 9.0-11.6 [facility] Comment on above: Performed By: #### P T, PTT ####[facility] [address] [address]Dr. Erasmo Smith PTTon 02-24-2022 aPTT Coag (Bld) [Time] 34.7 s Normal 22.3-36.2 Th [facility] Comment on above: Performed By: #### P T, PTT ####[facility] [address] [address]Dr. Erasmo Smith TROPONIN, HIGH SENSITIVITYon 02-24-2022 HSTROP 6.6 pg/mL Normal 4.0-51.3 [facility] Comment on above: Result Comment: CUT- OFF POINTS HAVE BEEN ESTABLISHED BASED ON THE FOURTH UNIVERSAL DEFINITIONS OF MYOCARDIAL INFARCTION. THE UPPER REFERENCE LIMIT (URL) OF TROPONIN, DEFINED THE 99TH PERCENTILE OF cTnI DISTRIBUTION IN A REFERENCE POPULATION, HAS BEEN CONFIRMED THE DECISION THRESHOLD FOR OR DIAGNOSIS. Performed By: #### C MREP #### [facility] [address], [place] [address] Dr. Erasmo Smith PROTHROMBIN TIMEon INR Coag (PPP) [Relative time] 1.2 {INR} High 0.86-1.16 [facility] Comment on above: Result Comment: INR Theraputic Range: 2.0-3.5 Performed at [facility] [address] [facility] [id number] PT Coag (PPP) [Time] 12.7 s Normal 9.3-12.7 [facility] ANTICOAGULANT COUMADIN Normal [facility] Vital Signs Date Time Vital Sign Value Performing Clinician Faci lity 10-07-2021 16:00-0500 Body height 146.69 cm Hong Nevarez Other [facility] Other 10-07-2021 16:00-0500 Body mass index (BMI) [Ratio] 51.01 kg/m2 Hong Nevarez Other [facility] Other 10-07-2021 16:00-0500 Body weight 109.77 kg Hong Geri Other [facility] Other 08-26-2021 15:15-0500 Body height 146.69 cm Hong Nevarez Other [facility] Other 08-26-2021 15:15-0500 Body mass index (BMI) [Ratio] 51.07 kg/m2 Hong Geri Other [facility] Other 08-26-2021 15:15-0500 Body weight 109.91 kg Hong Nevarez Other [facility] Other Encounters Encounter Date Encounter Type Care Provider Facility Start: 10-17-2023 Cristobal Denis MD Work Phone: [facility] Start: 10-17-2023 Cristobal Denis MD Work Phone: [facility] Start: 10-17-2023 End: 10-17-2023 ambulatory SHAIKH CIRA Not Available Start: 10-11-2023 End: 10-11-2023 ambulatory MD Shaikh Denis Work Phone: [facility] Work Phone: Start: 10-11-2023 End: 10-11-2023 Patient encounter procedure MD Shaikh Denis Work Phone: [facility] [place] Work Phone: Start: 09-08-2023 End: 09-08-2023 ambulatory Shaikh Cira Facility:[facility] Start: 09-08-2023 End: 09-08-2023 ambulatory MD Shaikh Denis Work Phone: [facility] Work Phone: Start: 09-08-2023 End: 09-08-2023 Patient encounter procedure MD Shaikh Denis Work Phone: [facility]-Pacemaker Check Start: 09-06-2023 End: 09-06-2023 ambulatory SHAIKH CIRA Not Available Start: 09-06-2023 Patient encounter procedure Shaikh Cira CUBA Work Phone: [facility] Start: 07-08-2023 End: 07-08-2023 ambulatory [facility] Start: 07-05-2023 End: 07-05-2023 ambulatory [facility] Start: 04-11-2023 End: 04-12-2023 ambulatory Miguel Murphy MD Facility:[facility] Start: 03-01-2023 End: 03-01-2023 ambulatory [facility] Start: 01-31-2023 End: 02-01-2023 ambulatory ANDRIUS GIEDRAITIS Facility:[facility] Start: 01-28-2023 End: 01-29-2023 ambulatory ANDRIUS GIEDRAITIS Facility:[facility] Start: 01-11-2023 End: 01-12-2023 ambulatory Barbara Esposito Facility:[facility] Val[address] chow Start: 01-10-2023 End: 02-09-2023 ambulatory SHAIKH Kymberly DENIS Facility:[facility] Start: 12-28-2022 End: 12-28-2022 ambulatory [facility] Start: 12-16-2022 End: 12-17-[address] DOCTOR KENNEDY Facility:[facility] Start: 12-13-2022 End: 01-07-[address] LUISANA FISHER . Facility:[facility] Start: 12-08-2022 End: 12-08-2022 ambulatory [facility] Start: 2022 End: 12-03-2022 Evaluation and management of inpatient RENÉE RIVER . Facility:[facility] Start: 11-29-2022 ambulatory Barbara Esposito Facility:[facility] Start: 11-26-2022 End: 11-27-[address] LUISANA FISHER . Facility:[facility] Start: 11-10-2022 End: 11-10-2022 ambulatory [facility] Start: 11-10-2022 End: 12-10-2022 ambulatory SHAIKH Kymberly DENIS Facility:[facility] Start: 10-13-2022 End: 11-10-2022 ambulatory SHAIKH Kymberly DENIS Facility:[facility] Start: 09-13-2022 End: 10-13-[address] LUISANA FISHER . Facility:[facility] Start: 08-12-2022 End: 09-12-[address] LUISANA FISHER . Facility:[facility] Start: 07-13-2022 End: 07-14-2022 ambulatory LUIZ SAMSA . Facility:[facility] Start: 07-13-2022 End: 07-14-[address] LUISANA FISHER . Facility:[facility] Start: 07-13-2022 End: 08-11-2022 ambulatory SAHU Kymberly CIRA Facility:[facility] Start: 07-12-2022 End: 07-13-[address] LUISANA FISHER . Facility:[facility] Start: 06-13-2022 End: 07-12-2022 ambulatory SAHU H CAMILOFerWAAlysa Facility:[facility] Start: 05-27-2022 End: 05-28-2022 ambulatory LUIZ SAMSA . Facility:[facility] Start: 05-19-2022 End: 05-20-2022 ambulatory LUIZ SAMSA . Facility:[facility] Start: 05-13-2022 End: 06-12-2022 ambulatory SHAIKH Kymberly COLÓNJUAND Facility:[facility] Start: 04-20-2022 End: 04-21-2022 ambulatory LUIZ SAMSA . Facility:[facility] Start: 04-12-2022 End: 05-12-2022 ambulatory SAHU Kymberly CIRA Facility:[facility] Start: 03-30-2022 End: 03-30-[address] LUISANA FISHER . Facility:[facility] Start: 03-12-2022 End: 04-09-2022 ambulatory Kymberly CIRA Facility:[facility] Start: 02-25-2022 End: 02-25-[address] LUISANA FISHER . Facility:[facility] Start: 02-24-2022 End: 02-25-[address] LUISANA FISHER . Facility:[facility] Start: 10-07-2021 End: 10-07-2021 ambulatory Hong Nevarez Other [facility] Other Start: 10-07-2021 Office outpatient visit 15 minutes Hong Nevarez [facility] Start: 08-26-2021 End: 08-26-2021 ambulatory Hong Nevarez Other [facility] Other Start: 08-26-2021 Office outpatient ne w 45 minutes Hong Nevarez [facility] Start: 10-11-2020 End: 10-13-2020 Evaluation and management of inpatient ZANE MAYNOR Facility:[facility] Procedures Date Procedure Procedure Detail Performing Clinician Start: 10-11-2023 XR pre/post mri xray MD Shaikh Denis Work Phone: Start: 10-11-2023 MR lumbar spine wo con MD Shaikh Denis Work Phone: Start: 03-01-2023 Follow-up visit Follow-up YANCY PERALES ACKO Start: 10-13-2020 INSERT PACE. SKYLER CH AM IN CHEST SUBCU/FASCIA, OPEN YANCY MAHAN Start: 10-13-2020 INSERTION OF PACEMAK ER LEAD INTO R VENTRICLE, PERC APPROACH YANCY MAHAN Start: 10-13-2020 INSERTION OF PACEMAK ER LEAD INTO RIGHT ATRIUM, PERC APPROACH YANCY MAHAN Start: 09-12-2017 Colonoscopy Shaikh Dominique eid MD Work Phone: Plan of Treatment Date Care Activity Detail Author Start: 09-12-2027 Screening for malign ant neoplasm of colon [facility] Start: 09-06-2024 Medicare Annual Well ness (AWV) Medicare Annual Wellness (AWV) [facility] Start: 11-07-2023 End: 11-07-2023 Patient encounter procedure 11/07/2023 2:30 PM EST Office Visit [facility] [address] [place] [address] Shaikh Denis MD [address] [place] [id number] [facility] Start: 10-17-2023 End: 10-17-2023 Patient encounter procedure 10/17/2023 10:15 AM EST Office Visit [facility] [address] [place] [address] Shaikh Denis MD [address] [place] [id number] Arrived [facility] Comment on above: Arrived Start: 1945 Screening for malign ant neoplasm of colon [facility] Payers Date Payer Category Payer Self-pay [id number] 2023 Managed Care HMO (unspecified) OSEI FRANZ [id number] 2023-Present [address] [place] [address] [facility] [id number] 2022 Private Health Insurance 2007 Medicare 1959 Medicare [id number] 1959 Private Health Insurance [facility] [id number] 1945 Unknown [id number] 2.16.840.1.722862.3.579. 2.647 1945 Unknown [id number] 2.16.840.1.841200.3.579. 2.727 1945 Unknown [id number] 2.16.840.1.668558.3.579. 2.593 1947 Unknown [id number] 2.16.840.1.798218.3.579. 2.593 1947 Unknown [id number] 2.16.840.1.890559.3.579. 2.593 1947 Unknown [id number] 2.16.840.1.761054.3.579. 2.593 1947 Unknown [id number] 2.16.840.1.440298.3.579. 2.593 1947 Unknown [id number] 2.16.840.1.396055.3.579. 2.593 1947 Unknown [id number] 2.16.840.1.433473.3.579. 2.593 1947 Unknown [id number] 2.16.840.1.174101.3.579. 2.593 1947 Unknown [id number] 2.16.840.1.614147.3.579. 2.593 1947 Unknown [id number] 2.16.840.1.202563.3.579. 2.593 1947 Unknown [id number] 2.16.840.1.345269.3.579. 2.593 1947 Unknown [id number] 2.16.840.1.178940.3.579. 2.593 1947 Unknown [id number] 2.16.840.1.394654.3.579. 2.593 1947 Unknown [id number] 2.16.840.1.465397.3.579. 2.593 1947 Unknown [id number] 2.16.840.1.848994.3.579. 2.593 1947 Unknown [id number] 2.16.840.1.091968.3.579. 2.593 1947 Unknown [id number] 2.16.840.1.942751.3.579. 2.593 1947 Unknown [id number] 2.16.840.1.332039.3.579. 2.593 1947 Unknown [id number] 2.16.840.1.111169.3.579. 2.593 1947 Unknown [id number] 2.16.840.1.432278.3.579. 2.593 1947 Unknown [id number] 2.16.840.1.450948.3.579. 2.593 1947 Unknown [id number] 2.16.840.1.928834.3.579. 2.593 1947 Unknown [id number] 2.16.840.1.520261.3.579. 2.593 1947 Unknown [id number] 2.16.840.1.762420.3.579. 2.593 1947 Unknown [id number] 2.16.840.1.785422.3.579. 2.593 1947 Unknown [id number] 2.16.840.1.589887.3.579. 2.593 1947 Unknown [id number] 2.16.840.1.671502.3.579. 2.196 1947 Unknown [id number] 2.16.840.1.805179.3.579. 2.196 1947 Unknown [id number] 2.16.840.1.052046.3.579. 2.1259 1947 Unknown [id number] 2.16.840.1.650693.3.579. 2.1259 Medicare Medicare Outpatient [id number] 1A [id number] Unknown [place] [id number] Unknown [id number] 2.16.840.1.857539.3.579. 2.531 Unknown [id number] 2.16.840.1.664396.3.579. 2.531 Social History Date Type Detail Facility Start: 08-30-2023 End: 09-06-2023 Sex Assigned At [facility] Start: 1945 Sex Assigned At Female F [facility] Start: 08-18-2023 [facility] History of tobacco use Current smoker [facility] History of tobacco use Cigarette Smoker [facility] Start: 09-02-2023 Alcohol intake Not Asked [facility] Start: 08-30-2023 End: 09-06-2023 History of Social function [facility] Within the last year , have you been afraid of your partner or ex-partner? No [facility] How often do you att end caodaism or restorationist services? Patient refused [facility] Do you belong to any clubs or organizations such as caodaism groups, unions, fraternal or athletic groups, or school groups? Yes [facility] Are you now , , , , never or living with a partner? [facility] Do you feel stress - tense, restless, nervous, or anxious, or unable to sleep at night because your mind is troubled all the time - these days [OSQ] Not at all [facility] (I/We) worried wheth er (my/our) food would run out before (I/we) got money to buy more. DK or Refused [facility] Start: 08-18-2023 Alcohol Comment (Audit-C) : Negative [facility] Start: 1945 Sex Assigned At Not on file N [facility] Clinical Notes 08-26-2021 to 07-05-2023 Note Date & Type Note Facility 07-05-2023 Note [place] [facility]rophysiology Consult Note Reason for visit: Afib. 07/05/23 She is back on Eliquis instead of warfarin now. She denies chest pain, lightheadedness, and palpitations. Still her intermittent LE edema. Denies bleeding on Eliquis. No Afib recently. Last episode is 06/26/22. She is doing well. Not using CPAP due to difficulty in wearing it. Patient has come for follow-up. she seems to be at her baseline with no new issues to report. she was recently admitted with the plans of having some ablation done for her back pain. she is currently on Coumadin for anticoagulation. Device check performed on 12/27/2022 shows normal device function with 52% atrial pacing and less than 1% ventricular pacing. There episodes of mode switch noted which are consistent with the high atrial rate suggestive of atrial flutter/fib with a rate of 194 bpm the ventricular rate is well controlled at that. The atrial cycle length was prolonged 360 ms. The longest episode was 2 hours and 47 minutes in duration. HPI: Breann Starks is a 77 y.o. year old with past medical history of A-fib, atrial tachycardia s/p ablation 2005, sick sinus syndrome s/p PPM 10/2020 dual-chamber [employer], COPD, mild CAD s/p cardiac cath 2010, SHAWANDA noncompliant with mask, and obesity. She is here for 6-month follow-up. She was considered for an ablation back in April 2022 but wanted to hold off due to shoulder surgery. Today she continues to express not wanting to proceed with an ablation at this time despite her device check showing the presence of A-fib. 05/11/22 Chief Complaint: Device check that was performed on 01/12/2022 shows good thresholds. She is pacing the atrium 58% of the time and 0% ventricularly paced. No A. fib noted until January 2022. She is on Flecainide nd coumadin as she could not afford DOAC. Patient underwent dual-chamber [employer] pacemaker placement on 10/13/2020. On subsequent device check 05/19/2021 which has revealed the presence of atrial fibrillation which was first picked up in October 2020. She was placed on Eliquis. There are episodes of A. fib with RVR with device checks. She was schewduled for AFib ablation but has shoulder issues and needs surgery for that. cc: Pauses HPI: Ms. Starks, has a history of SVT which has been managed by her verapamil and Metoprolol for a long period of time. She had a previous ablation and it was determined at that time that the arrhythmia was located on the left side of the heart and she was not agreeable to have a transseptal left-sided procedure done at that time. Since then she has increased her Metoprolol and her SVT seems to be significantly better with episodes occurring only once or twice a month.She was placed on Flecainide 100 mg PO b.i.d. by Dr Patiño. Later in she had AF on holter and was DCCV by Dr Silva. She had an event monitor for dizziness which has revealed significant pauses. Test: A 7-day event monitor that was placed from 09/16/2020 - 09/23/2020 revealed sinus rhythm with episode of atrial fibrillation noted on 09/23/2020 with a fast ventricular rate of 135 bpm. There was a pause of 6.3 seconds noted on 09/17/2020 at 2:23 AM. There were other pauses noted on 09/18/2020 at 2 PM of 4.6-second duration, and again at 3:48 PM of 5.3-second duration, 09/22/2020 at 12:46 PM of 4.4-second duration which appears consistent with AV block a sinus beat could be appreciated. PVC burden was less than 1%. EP procedures 06/03/2020 cardioversion was performed by Dr. Silva to convert her from A. fib to sinus rhythm with 360J synchronized DCCV 03/22/[address] Constantin Ulloa revealed the presence of atrial tachycardia. 81 was 130 bpm which would terminate spontaneously, and another 1 at 300 bpm with 2:1 AV block that later degenerated into A. fib. No ablation was performed on that day 04/05/[address] Constantin Ulloa atrial tachycardia with a rate at 140 to 170 bpm was spontaneously and induced with AEST. This was mapped and appeared to come early as from the interval atrial septum. Ablation this was performed in the superior portion of the right atrium near the septum was ineffective. Further mapping suggested that this could be coming from the right superior pulmonary vein -- PMH: No past medical history on file. Patient Active Problem List Diagnosis Disorder of bursae of shoulder region Chronic obstructive lung disease (CMS/HCC) Coronary atherosclerosis Diaphragmatic hernia Edema Essential hypertension Malaise and fatigue Obesity Paroxysmal supraventricular tachycardia Premature beats Sinus node dysfunction (CMS/HCC) Persistent atrial fibrillation (CMS/HCC) Vitamin D deficiency Venous insufficiency Steatosis of liver Spinal stenosis Gastric ulcer Osteoarthritis of lumbar spine Osteoarthritis of both knees Hypocalcemi (more content not included)... [facility] 03-01-2023 Note [place] Electrophysiology Consult Note Reason for visit: 6-month follow-up. Patient has come for follow-up. she seems to be at her baseline with no new issues to report. she was recently admitted with the plans of having some ablation done for her back pain. she is currently on Coumadin for anticoagulation. Device check performed on 12/27/2022 shows normal device function with 52% atrial pacing and less than 1% ventricular pacing. There episodes of mode switch noted which are consistent with the high atrial rate suggestive of atrial flutter/fib with a rate of 194 bpm the ventricular rate is well controlled at that. The atrial cycle length was prolonged 360 ms. The longest episode was 2 hours and 47 minutes in duration. HPI: Breann Starks is a 77 y.o. year old with past medical history of A-fib, atrial tachycardia s/p ablation 2005, sick sinus syndrome s/p PPM 10/2020 dual-chamber [employer], COPD, mild CAD s/p cardiac cath 2010, SHAWANDA noncompliant with mask, and obesity. She is here for 6-month follow-up. She was considered for an ablation back in April 2022 but wanted to hold off due to shoulder surgery. Today she continues to express not wanting to proceed with an ablation at this time despite her device check showing the presence of A-fib. 05/11/22 Chief Complaint: Device check that was performed on 01/12/2022 shows good thresholds. She is pacing the atrium 58% of the time and 0% ventricularly paced. No A. fib noted until January 2022. She is on Flecainide nd coumadin as she could not afford DOAC. Patient underwent dual-chamber [employer] pacemaker placement on 10/13/2020. On subsequent device check 05/19/2021 which has revealed the presence of atrial fibrillation which was first picked up in October 2020. She was placed on Eliquis. There are episodes of A. fib with RVR with device checks. She was schewduled for AFib ablation but has shoulder issues and needs surgery for that. cc: Pauses HPI: Ms. Starks, has a history of SVT which has been managed by her verapamil and Metoprolol for a long period of time. She had a previous ablation and it was determined at that time that the arrhythmia was located on the left side of the heart and she was not agreeable to have a transseptal left-sided procedure done at that time. Since then she has increased her Metoprolol and her SVT seems to be significantly better with episodes occurring only once or twice a month.She was placed on Flecainide 100 mg PO b.i.d. by Dr Patiño. Later in she had AF on holter and was DCCV by Dr Silva. She had an event monitor for dizziness which has revealed significant pauses. Test: A 7-day event monitor that was placed from 09/16/2020 - 09/23/2020 revealed sinus rhythm with episode of atrial fibrillation noted on 09/23/2020 with a fast ventricular rate of 135 bpm. There was a pause of 6.3 seconds noted on 09/17/2020 at 2:23 AM. There were other pauses noted on 09/18/2020 at 2 PM of 4.6-second duration, and again at 3:48 PM of 5.3-second duration, 09/22/2020 at 12:46 PM of 4.4-second duration which appears consistent with AV block a sinus beat could be appreciated. PVC burden was less than 1%. EP procedures 06/03/2020 cardioversion was performed by Dr. Silva to convert her from A. fib to sinus rhythm with 360J synchronized DCCV 03/22/[address] Constantin Ulloa revealed the presence of atrial tachycardia. 81 was 130 bpm which would terminate spontaneously, and another 1 at 300 bpm with 2:1 AV block that later degenerated into A. fib. No ablation was performed on that day 04/05/[address] Constantin Ulloa atrial tachycardia with a rate at 140 to 170 bpm was spontaneously and induced with AEST. This was mapped and appeared to come early as from the interval atrial septum. Ablation this was performed in the superior portion of the right atrium near the septum was ineffective. Further mapping suggested that this could be coming from the right superior pulmonary vein -- PMH: History reviewed. No pertinent past medical history. Patient Active Problem List Diagnosis Disorder of bursae of shoulder region Chronic obstructive lung disease (CMS/HCC) Coronary atherosclerosis Diaphragmatic hernia Edema Essential hypertension Malaise and fatigue Obesity Paroxysmal supraventricular tachycardia (CMS/HCC) Premature beats Sinus node dysfunction (CMS/HCC) Persistent atrial fibrillation (CMS/HCC) Vitamin D deficiency Venous insufficiency Steatosis of liver Spinal stenosis Gastric ulcer Osteoarthritis of lumbar spine Osteoarthritis of both knees Hypocalcemia Herpes zoster Cervical radiculopathy PSH: Past Surgical History: Procedure Laterality Date FOOT SURGERY X2 HAND SURGERY HYSTERECTOMY INSERT / REPLACE / REMOVE PACEMAKER 10/13/2020 SHOULDER SURGERY X4 TOTAL KNEE ARTHROPLASTY Bi (more content not included)... [facility] 12-13-2022 Note [id number] #[id number] [facility] 12-08-2022 Note Cardiology Clinic No te Subjective Breann Starks is a 77 y.o. year old female patient with past medical history of paroxysmal supraventricular tachycardia status post ablation x3 2005, atrial fibrillation on warfarin and flecainide, sick sinus syndrome status post pacemaker, hypertension, COPD, coronary angiography in 2010 which showed mild CAD, seen in posthospitalization follow-up from [facility]. She was seen by cardiology in consultation for elevated troponin high sensitive troponin and chest discomfort, she was recommended repeat echo which was unchanged. She was started on aspirin 81 mg and high intensity statin with plans for outpatient ischemic work-up. Today, she adamantly denies having chest discomfort. She reports she had chest soreness which was reproducible with palpation. She is feeling well from a cardiac standpoint without concerns at this time. Denies ongoing chest pain, denies worsening dyspnea on exertion, or palpitations. Patient Active Problem List Diagnosis Disorder of bursae of shoulder region Chronic obstructive lung disease (CMS/HCC) Coronary atherosclerosis Diaphragmatic hernia Edema Essential hypertension Malaise and fatigue Obesity Paroxysmal supraventricular tachycardia (CMS/HCC) Premature beats Sinus node dysfunction (CMS/HCC) Persistent atrial fibrillation (CMS/HCC) Family History Adopted: Yes Family history unknown: Yes Social History Tobacco Use Smoking status: Former Years: 43.00 Types: Cigarettes Quit date: 2000 Years since quittin.2 Smokeless tobacco: Never Substance Use Topics Alcohol use: Yes Comment: OCCASIONAL Drug use: Never Review of Systems Cardiovascular: Positive for dyspnea on exertion. Negative for chest pain, claudication, irregular heartbeat, leg swelling, near-syncope, orthopnea, palpitations, paroxysmal nocturnal dyspnea and syncope. Objective Visit Vitals BP 136/78 Ht 1.499 m (4' 11 ) Wt 108 kg (237 lb) BMI 47.87 kg/m??? Smoking Status Former BSA 2.12 m??? Physical Exam General: Awake, alert, good spirits. NAD Pulm: Breath sounds clear to ascultation bilaterally with no wheeze, crackles or rhonchi Cards: Regular rate and rhythm, S1, S2. No S3 or S4 gallop. Murmur: none Abd: Soft, Nontender, physiologic bowel sounds are present Extr: Lower extremity edema: None. Skin: warm, dry, well perfused Neuro: A&Ox3, No gross deficits Allergies No Known Allergies Medications Current Outpatient Medications: ammonium lactate (Lac-Hydrin) 12 % lotion, APPLY TO LESION ONCE DAILY, Disp: , Rfl: amoxicillin-pot clavulanate (Augmentin) 875-125 mg tablet, Take 1 tablet by mouth with breakfast and with evening meal., Disp: , Rfl: aspirin 81 mg chewable tablet, CHEW AND SWALLOW 1 TABLET BY MOUTH ONCE A DAY, Disp: , Rfl: cholecalciferol (Vitamin D-3) 125 MCG (5000 UT) capsule, Take 1 tablet by mouth in the morning., Disp: , Rfl: flecainide (Tambocor) 100 mg tablet, Take 100 mg by mouth in the morning and at bedtime., Disp: , Rfl: omeprazole (PriLOSEC) [address] capsule, Take 1 tablet by mouth in the morning., Disp: , Rfl: potassium chloride CR (Klor-Con) 10 mEq ER tablet, TAKE 1 TABLET BY MOUTH EVERY DAY IN THE MORNING, Disp: , Rfl: spironolactone (Aldactone) 25 mg tablet, Take 1 tablet by mouth in the morning., Disp: , Rfl: verapamil ER (Veralan) 180 mg 24 hr capsule, Take 2 capsules by mouth in the morning., Disp: , Rfl: warfarin (Coumadin) 3 mg tablet, TAKE DAILY DIRECTED PER COUMADIN CLINIC, Disp: 90 tablet, Rfl: 3 atorvastatin (Lipitor) 80 mg tablet, TAKE 1 TABLET BY MOUTH ONCE EVERY EVENING, Disp: , Rfl: budesonide-formoteroL (Symbicort) 160-4.5 mcg/actuation inhaler, Inhale 1 puff twice a day by inhalation route for 30 days., Disp: , Rfl: cefuroxime (Ceftin) 500 mg tablet, Take 1 tablet by mouth in the morning and at bedtime., Disp: , Rfl: furosemide (Lasix) 20 mg tablet, Take 1 tablet by mouth in the morning., Disp: , Rfl: levalbuterol (Xopenex) 45 mcg/actuation inhaler, INHALE 2 PUFFS BY MOUTH EVERY 6 HOURS NEEDED FOR SHORTNESS OF BREATH, Disp: , Rfl: levoFLOXacin (Levaquin) 750 mg tablet, Take 1 tablet by mouth in the morning., Disp: , Rfl: oxyCODONE-acetaminophen (Percocet) 5-325 mg tablet, , Disp: , Rfl: predniSONE (Deltasone) 10 mg tablet, Take 3 tablets by mouth in the morning., Disp: , Rfl: rivaroxaban (Xarelto) 20 mg tablet, Take 20 mg by mouth every other day. Take with food., Disp: , Rfl: Recent Labs High sensitive troponin 2022: 154.3, 116.7 (4-51.3) Sodium 138, potassium 3.2, chloride 103, CO2 23.6, BUN 17, creatinine 0.6, GFR greater than 60% WBC 17.2, hemoglobin 9.5, hematocrit 29.2, platelets 205 Imaging and other tests Echocardiogram: 12/02/2021 Left left ventricle: Normal chamber size. Borderline left ventricular hypertrophy. Systolic function is normal, LVEF 55%. Grade 3 diastolic dysfunction. Left atri (more content not included)... [facility] 11-18-2022 Note Obesity is slightly improving -She was to 255 pounds last visit and today she is 241 pounds -Advised to continue working on weight loss and lifestyle changes [facility] 11-18-2022 Note - S/p PPM [employer] -We will have her scheduled for device check [facility] 11-18-2022 Note -device check in may <1% AF, had 1 mode switch which lasted 6 seconds -will have her get device check to assess AF burden -[id number] 3 -Continue Xarelto 20 mg daily, continue propafenone to 25 mg 3 times a day [facility] 11-18-2022 Note Hypertension is stab le -ct medications: aldactone, verapamil, lasix 20mg -managed per PCP [facility] 11-18-2022 Note Coronary artery dise ase is stable -no CP or LEA -last cath 2010, mild disease no PCI / stent -continue medications [facility] 11-10-2022 Note Patient is here toda y for a 6 month follow up Review of Systems Constitutional: Positive for weight loss. Cardiovascular: Positive for palpitations. All other systems reviewed and are negative. [facility] 11-10-2022 Note [place] Electrophysiology Consult Note Reason for visit: 6-month follow-up HPI: Breann Starks is a 76 y.o. year old with past medical history of A-fib, atrial tachycardia s/p ablation 2005, sick sinus syndrome s/p PPM 10/2020 dual-chamber [employer], COPD, mild CAD s/p cardiac cath 2010, SHAWANDA noncompliant with mask, and obesity. She is here for 6-month follow-up. She was considered for an ablation back in April 2022 but wanted to hold off due to shoulder surgery. Today she continues to express not wanting to proceed with an ablation at this time despite her device check showing the presence of A-fib. Last device check 05/2022 shows she has been in A-fib for less than 1% of the time. Documentation states she has had a device check but there is no tracing. I will order for her to have another device check to evaluate for A-fib burden. She continues to take warfarin, verapamil and flecainide. She was taken off flecainide during last visit and was to start propafenone but did not due to cost She states she has felt very well and has been working on weight loss. She believes her COPD is improving and took herself off all of her inhalers and has not required any medication. -- Previous per Dr. Mahan 04/2022: 05/11/22 Chief Complaint: Device check that was performed on 01/12/2022 shows good thresholds. She is pacing the atrium 58% of the time and 0% ventricularly paced. No A. fib noted until January 2022. She is on Flecainide nd coumadin as she could not afford DOAC. Patient underwent dual-chamber [employer] pacemaker placement on 10/13/2020. On subsequent device check 05/19/2021 which has revealed the presence of atrial fibrillation which was first picked up in October 2020. She was placed on Eliquis. There are episodes of A. fib with RVR with device checks. She was schewduled for AFib ablation but has shoulder issues and needs surgery for that. cc: Pauses HPI: Ms. Starks, has a history of SVT which has been managed by her verapamil and Metoprolol for a long period of time. She had a previous ablation and it was determined at that time that the arrhythmia was located on the left side of the heart and she was not agreeable to have a transseptal left-sided procedure done at that time. Since then she has increased her Metoprolol and her SVT seems to be significantly better with episodes occurring only once or twice a month.She was placed on Flecainide 100 mg PO b.i.d. by Dr Patiño. Later in she had AF on holter and was DCCV by Dr Silva. She had an event monitor for dizziness which has revealed significant pauses. Test: A 7-day event monitor that was placed from 09/16/2020 - 09/23/2020 revealed sinus rhythm with episode of atrial fibrillation noted on 09/23/2020 with a fast ventricular rate of 135 bpm. There was a pause of 6.3 seconds noted on 09/17/2020 at 2:23 AM. There were other pauses noted on 09/18/2020 at 2 PM of 4.6-second duration, and again at 3:48 PM of 5.3-second duration, 09/22/2020 at 12:46 PM of 4.4-second duration which appears consistent with AV block a sinus beat could be appreciated. PVC burden was less than 1%. EP procedures 06/03/2020 cardioversion was performed by Dr. Silva to convert her from A. fib to sinus rhythm with 360J synchronized DCCV 03/22/[address] Constantin Ulloa revealed the presence of atrial tachycardia. 81 was 130 bpm which would terminate spontaneously, and another 1 at 300 bpm with 2:1 AV block that later degenerated into A. fib. No ablation was performed on that day 04/05/[address] Constantin Ulloa atrial tachycardia with a rate at 140 to 170 bpm was spontaneously and induced with AEST. This was mapped and appeared to come early as from the interval atrial septum. Ablation this was performed in the superior portion of the right atrium near the septum was ineffective. Further mapping suggested that this could be coming from the right superior pulmonary vein -- PMH: History reviewed. No pertinent past medical history. Patient Active Problem List Diagnosis Disorder of bursae of shoulder region Chronic obstructive lung disease (CMS/HCC) Coronary atherosclerosis Diaphragmatic hernia Edema Essential hypertension Malaise and fatigue Obesity Paroxysmal supraventricular tachycardia (CMS/HCC) Premature beats Sinus node dysfunction (CMS/HCC) PSH: Past Surgical History: Procedure Laterality Date FOOT SURGERY X2 HAND SURGERY HYSTERECTOMY INSERT / REPLACE / REMOVE PACEMAKER 10/13/2020 SHOULDER SURGERY X4 TOTAL KNEE ARTHROPLASTY Bilateral TRIGGER FINGER RELEASE 08/12/2015 TUBAL LIGATION SH: Social Determinants of Health Tobacco Use: Medium Risk Smoking Tobacco Use: Former Smokeless Tobacco Use: Never Passive Exposure: Not on f (more content not included)... [facility] 10-07-2021 Evaluation note Encounter Date Diagnosis Assessment Notes Sep, LOJA (nonalcoholic steatohepatitis ) (ICD-10 - K75.81) OBTAIN FIBROSURE RESULTS FROM [facility] REASSURANCE ON RESULTS PT ENCOURAGED WEIGHT LOSS RTO ONE YEAR WITH LABS ANNUALLY Sep, Unspecified cirrhosis of liver (ICD-10 - K74.60) [facility] Other 12-15-2021 Evaluation note* Encounter Date Diagnosis Assessment Notes Treatment Notes Treatment Clinical Notes Aug, Nonalcoholic steatohepatitis (LOJA) (ICD-10 - K75.81) RTO 6-8 WEEKS Aug, Unspecified cirrhosi s of liver (ICD-10 - K74.60) 15 Aug, 2021 Morbid obesity (ICD- 10 - E66.01) [facility] Other Evaluation noteNo assessment information available [facility] Work Phone: History general Narrative - Reported* Type Description Date Medical History COPD Medical History a.fib Medical History HTN Medical History GERD Surgical History (R) TKA Surgical History 3 right shoulder surgeries Surgical History (L) TKA Surgical History 1 left shoulder Surgical History (L) SHOULDER SCOPE Surgical History left TKA Surgical History (R) SHOULDER SCOPE x3 Surgical History right TKA Surgical History ABALATION Surgical History bilateral foot surgeries Surgical History (L) RF TRIGGER RELEASE Surgical History 3 heart ablations Surgical History hysterectomy-total Surgical History pacemaker Hospitalization History see above [facility] Other Summary Purpose Family History No Family History Records FoundNo Family History Records FoundNo Family History Records FoundNo Family History Records FoundNo Family History Records FoundNo Family History Records FoundNo Family History Records FoundNo Family History Records Found Advance Directives No Advanced Directives Records Found Advance Directive Response Recorded Date/ Time Advance Directives No May 2:01pm Chief Complaint and Reason for Visit Chief Complaint mri clearance Chief Complaint mri clearance lumbar radiculpathy Additional Source Comments INFORMATION SOURCE (unrecogn ized section and content) DATE CREATED AUTHOR 10/23/2021 [facility] DATE CREATED AUTHOR AUTHOR'S ORGANIZ ATION 01/22/2022 [facility] DATE CREATED AUTHOR AUTHOR'S ORGANIZ ATION 01/14/2023 [facility] DATE CREATED AUTHOR AUTHOR'S ORGANIZ ATION 02/18/2023 [facility] DATE CREATED AUTHOR AUTHOR'S ORGANIZ ATION 05/03/2023 [facility] DATE CREATED AUTHOR AUTHOR'S ORGANIZ ATION 07/10/2023 [facility] DATE CREATED AUTHOR AUTHOR'S ORGANIZ ATION 10/17/2023 [facility] EPIC DATE CREATED AUTHOR AUTHOR'S ORGANIZ ATION 10/19/2023 [facility] REASON FOR VISIT (unrecogniz ed section and content) PATIENT HERE AT THE REQUEST OF DR FISHER FOR ABNORMAL U/SPATIENT HERE FOR 6 WEEK FOLLOW UP CIRHHOSIS OF LIVER, LABS WERE ORDERED AT LAST OFFICE VISIT SHE IS HERE FOR RESULTS Care Teams (unrecognized sec tion and content) Team Status: Active Member Role Status Dates Shaikh Cira MD Primary Care Provider Active Team Status: Inactive Member Role Status Dates THANG Porter Attending Provider Active Shaikh Cira MD Primary Care Provider Active Team Status: Inactive Member Role Status Dates THANG Porter Attending Provider Active St art: September 08, 2023 End: September 08, 2023 Shaikh Cira MD Primary Care Provider Active Start: September 08, 2023 End: September 08, 2023 Team Status: Inactive Member Role Status Dates THANG Porter Attending Provider Active St art: October 11, 2023 End: October 11, 2023 Shaikh Cira MD Primary Care Provider Active Start: October 11, 2023 End: October 11, 2023 Track Supervisor Relationship Specialty Start Date End Date Shaikh Denis MD PCP - General Internal Medicine 04/05/23 Goals (unrecognized section and content) Goals may be documented in a n alternate section FOR RECORDS PERTAINING TO PATIENTS WHO ARE OR HAVE BEEN ENROLLED IN A CHEMICAL DEPENDENCY/SUBSTANCEABUSE PROGRAM, SOME INFORMATION MAY BE OMITTED. This clinical summary was aggregated from multiple sources. Caution should be exercised in using it in the provision of clinical care. This summary normalizes information from multiple sources, and as a consequence, information in this document may materially change the coding, format and clinical context of patient data. In addition, data may be omitted in some cases. CLINICAL DECISIONS SHOULD BE BASED ON THE PRIMARY CLINICAL RECORDS. [facility]. provides no warranty or guarantee of the accuracy or completeness of information in this document.
--- NOTE | 2023-10-20 14:10 | P.CN_ITS ---
Consult Note: HPI Data of Consult Patient: known to practice within the last 3 years Requesting Physician: Claire Clement NP Primary Care Provider: Shaikh Cira MD Consult Narrative Reason for consult: f/u Narrative: Breann Starks a pleasant 77 year old female presents for evaluation and management of chronic low back pain with radiculopathy and NC. Patient rating pain 0/10 today in low back, does increase to 8/10 with activity and walking. Numbness tingling weakness to bilateral legs. MRI of lumbar spine consistent with degenerative changes and lumbar stenosis. cc:: CC: Claire Clement NP Review of Systems ROS Status of ROS 10 or more systems reviewed and unremark able except as noted in history and below Musculoskeletal Reports: back pain PFSH PFSH Medical History Fatty liver ?K76.0 - Fatty (change of) liver, not elsewhere classified (ICD-10) Hiatal hernia ?K44.9 - Diaphragmatic hernia without obstruction or gangrene (ICD-10) History of shingles ?Z86.19 - Personal history of other infectious and parasitic diseases (ICD- 10) Irregular heart beat ?I49.9 - Cardiac arrhythmia, unspecified (ICD-10) Low back pain ?M54.50 - Low back pain, unspecified (ICD-10) Osteoarthritis ?M19.90 - Unspecified osteoarthritis, unspecified site (ICD-10) Pacemaker ?Z95.0 - Presence of cardiac pacemaker (ICD-10) Surgical History S/P rotator cuff repair ?Z98.890 - Other specified postprocedural states (ICD-10) History of colonoscopy ?Z98.890 - Other specified postprocedural states (ICD-10) S/P YANELI-BSO ?Z90.710 - Acquired absence of both cervix and uterus (ICD-10) ?Z90.722 - Acquired absence of ovaries, bilateral (ICD-10) ?Z90.79 - Acquired absence of other genital organ(s) (ICD-10) H/O cardiac catheterization ?Z98.890 - Other specified postprocedural states (ICD-10) H/O arthroscopy of shoulder ?Z98.890 - Other specified postprocedural states (ICD-10) H/O arthroscopy of knee ?Z98.890 - Other specified postprocedural states (ICD-10) History of appendectomy ?Z90.49 - Acquired absence of other specified parts of digestive tract (ICD- 10) History of total knee arthroplasty ?Z96.659 - Presence of unspecified artificial knee joint (ICD-10) Meds Home Medications and Allergies Home Medications Medication Instructions Recorded Confirmed Type cholecalciferol (vitamin D3) 125 5,000 unit PO DAILY 02/16/23 04/11/23 History mcg (5,000 unit) tablet (Vitamin D3) flecainide 100 mg tablet 100 mg PO Q12H 02/16/23 04/11/23 History omeprazole 40 mg capsule,delayed 40 mg PO DAILY 02/16/23 04/11/23 History release spironolactone 25 mg tablet 25 mg PO DAILY 02/16/23 04/11/23 History (Aldactone) verapamil 180 mg tablet,extended 180 mg PO DAILY 02/16/23 04/11/23 History release (Calan SR) apixaban 5 mg tablet (Eliquis) 5 mg PO BID 05/11/23 05/11/23 History Allergies Allergy/AdvReac Type Severity Reaction Status Date / Time No Known Drug Allergies Allergy Verified 04/11/23 08:40 Exam Constitutional Documenting provider has reviewed patient's vital signs: yes Common normals: no apparent distress, oriented x3, healthy appearing, alert and well nourished General appearance: cooperative Nutritional appearance: overweight HENMT Common normals: normocephalic, hearing grossly normal bilaterally and moist oral mucous membranes Head and scalp: normocephalic Eye Common normals: PERRL Pupil: PERRL Neck & C-Spine Common normals: full ROM General: normal visual inspection Chest Common normals: inspection of chest normal Respiratory Common normals: normal respiratory effort, no retractions and no use of accessory muscles Back & Pelvis Common normals: no CVA tenderness, thoracic and lumbar spine normal to inspection, no thoracic nor lumbar tenderness and thoraco-lumbar ROM normal Lumbar spine/lower back: straight leg raise negative bilaterally Sacroiliac joints: SI joints normal Other: intermittent weakness/numbness/tingling BLE Extremity Common normals: normal to inspection Left upper extremity: shoulder joint (no pain to sternoclavicular, AC, or glenohumeral joint with palpation) Left shoulder joint: ROM (limited and pain with ROM) Neuro Common normals: oriented x3, CN's II-XII intact bilaterally, moves all extremities, no focal motor deficits, no sensory deficits noted and deep tendon reflexes 2+ bilaterally Sensorium/orientation: alert Speech: speech normal Gait (neuro): normal gait Motor exam: strength 5/5 throughout and no movement abnormalities noted Other: sensation intact. no upper or lower numbness/tingling or weakness Psych Common normals: mental status grossly normal, thought process normal, cooperative, affect normal, speech normal and activity/motor behavior normal Speech: normal speech Thought process: normal thought process Assessment and Plan Assessment and Plan (1) Lumbar stenosis with neurogenic claudication: (2) Lumbar spondylosis: (3) Chronic anticoagulation: Plan can call to schedule Bilateral L4-5 TFESI under fluoroscopy with Dr Murphy continue HEP as tolerated f/u as needed or 2 weeks after BASIL (consider vertiflex in the future)
== END 2023-10-20 13:32 | disposition home or self-care (01) ==
PROVIDERS: PCP Internal Medicine; Visit Provider Nurse Practitioner
DX: M48.062 Spinal stenosis, lumbar region with neurogenic claudication (principal); M47.816 Spondylosis without myelopathy or radiculopathy, lumbar region; Z79.01 Long term (current) use of anticoagulants
CPT/HCPCS: G0463

== ENCOUNTER 2023-11-23 10:22 | Outpatient (RCR) | payer MEDICARE, SELFPAY | END 2023-12-01 15:36 | disposition home or self-care (01) | LOC: PT 10:22 | PROVIDERS: PCP Internal Medicine; Visit Provider Nurse Practitioner Family | DX: M51.16 Intervertebral disc disorders with radiculopathy, lumbar region (principal); M51.37 Other intervertebral disc degeneration, lumbosacral region | CPT/HCPCS: 97110; 97140; 97162 ==

== ENCOUNTER 2023-11-24 10:22 | Outpatient (OUT) | payer MEDICARE, SELFPAY ==
--- OUTSIDE RECORDS SUMMARY | 2023-11-24 10:27 | XMS_ITS | CCD ---
Author Name Unknown Address [address] [place] [address] Organization [facility] Care Team Providers Care Supervisor Major Appliance Assembly Name Role Phone ZANE MCGUIRE Admitting Unavailable YANCY MAHAN Referring Unavailable LUISANA FISHER Primary Care Unavailable ZANE MCGUIRE Attending Unavailable YANCY MAHAN Surgeon Unavailable LA Procedure Practitioner UnavailHong Ambrose Unavailable Barbara Esposito Attending Unavailable FISHER ., DR LUISANA Herbert Primary Care Unavailable FISHER ., DR LUISANA Herbert Admitting Unavailable FISHER ., DR LUISANA Herbert Attending Unavailable FISHER ., DR LUISANA Herbert Consulting Unavailable FISHER ., DR LUISANA Herbert Primary Care Unavailable FAWWAD, SAHU H Attending Unavailable FAWWAD, SAHU H Admitting Unavailable FAWWAD, [...] ., DR LUISANA Herbert Primary Care Unavailable DR PAULA DELGADO Consulting Unavailable SAMSA ., LUIZ Admitting Unavailable [...] FISHER ., DR LUISANA Herbert Consulting Unavailable DR PAULA DELGADO Consulting Unavailable HAY ., DR DE LEON Admitting Unavailable HAY ., DR DE LEON Attending Unavailable FISHER ., DR LUISANA Herbert Primary Care Unavailable GRECHIRENE .DANIELLE Consulting Unavailpriyanka herbert RIVER ., KAYLEY Admitting Unavailable RIVER ., KAYLEY Attending Unavailable [place], DR HONG [place] Consulting Unavailable FISHER ., DR LUISANA Herbert Primary Care Unavailable GRECHNY ., DANIELLE SHAIKH Consulting UnavailSALOME Mondragon Consulting Unavailable RIVER ., KAYLEY Consulting Unavailable JBARA, YASTEPHANIE Consulting Unavailable SAMSA ., LUIZ Admitting Unavailable [...] ., DR LUISANA Herbert Primary Care Unavailable FAWMADHURI, SHAIKH Kymberly Attending Unavailable CIRA, SHAIKH Kymberly Admitting Unavailable SAMSA ., LUIZ Admitting Unavailable SAMSA ., LUIZ Attending Unavailable SAMSA ., LUIZ Consulting Unavailable FISHER ., DR LUISANA Herbert Primary Care Unavailable Giedraitis , Miguel Sainz Attending Unavailable Giedrajuliette CUBA, Miguel Sainz Attending Unavailable YANCY MAHAN Attending Unavailable YANCY MAHAN Attending Unavailable YANCY MAHAN Referring Unavailable CECILIO MEDINA Attending Unavailable SUE KAUR Attending Unavailable YANCY MAHAN Referring Unavailable THANG Clement Attending Provider [phone] MD Janice Denis Primary Care Provider THANG Clement Attending Provider [phone] SHAIKH DENIS Attending Unavailable SHAIKH DENIS Attending Unavailable Shaikh Denis MD Primary Care Provider Claire Clement Attending Unavailable Shaikh Denis Primary Care Unavailable Claire Clement Admitting Unavailable Shaikh Denis Primary Care Unavailable Kayley Reeder Admitting Unavailable Kayley Reeder Attending Unavailable Claire Clement Admitting Unavailable Claire Clement Attending Unavailable Shaikh Denis Primary Care Unavailable Allergies Allergy Classification Reported Allergen(s) Allergy Type Date of Onset Reaction(s) Facility (1 source) ; Translations: [] Propensity to adverse reactions (disorder) 2 [facility] Repository (2 sources) NSAIDs Propensity to adverse reactions HEART ISSUES Sajan Other (1 source) meloxicam; Translations: [Mobic] Drug Allergy [facility] Repository (1 source) No Known Medication Allergies; Translations: [No Known Medication Allergies] Propensity to adverse reactions (disorder) [facility] Repository (1 source) Digoxin; Translations: [DIGOXIN] Drug Allergy 2 [facility] Repository (1 source) Adhesive agent Drug allergy (disorder) 4 [facility] Repository (1 source) NSAIDs Drug allergy (disorder) 4 [facility] Repository Medications Current Medications Medication Drug Class(es) [...] Active Centrum Silver (2 sources) Centrum Silver Compa duncan *please review for potential _update for e-prescription [...] 0 10/13/2023 Active take 1 capsule by [facility] every twenty-four hours Omeprazole 40 MG 1 [...] 02/14/2023 02/14/2024 Active take 1 capsule by [facility] every twenty-four hours Verapamil HCl ER 360 [...] disease (4 sources) Atherosclerotic heart disease of eek coronary artery without angina pectoris; Translations: [Coronary [...] Onset: 3 Episodic Other aftercare (1 source) 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; Translations: [RELIABILITY SPECIALIST CURRNT USE 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] Onset: 3 Episodic Other aftercare (1 source) Other penitentiary (current) drug therapy; Translations: [OTH SHELTER CURRENT DRUG THERAPY] Onset: 3 Episodic Other [...] Spondylosis; intervertebral disc disorders; other back problems (11 sources) Cervical spondylosis; Translations: [Spondylosis without myelopathy or radiculopathy, cervical region] Onset: 3 Chronic Spondylosis; intervertebral disc disorders; other back problems (6 sources) Cervical radiculopathy; Translations: [Radiculopathy, cervical region] [...] Test Name Value Interpretation Reference Range Facility XR lumbar spine 6V w bending on 11-16-2023 XR lumbar spine 6V w bending [facility] Main [place] [address] [place] [address] XRay Report Signed Patient: Breann Starks MR#: [id number] : 1945 Acct:[id number] Age/Sex: 77 / F ADM Date: 11/16/23 Loc: XD Room: Type: [facility] Attending Dr: Kayley DESIR Copies to: THANG Calvert Ordering Provider: THANG Calvert Date of Service: 11/16/23 XR/XR lumbar spine 6V w bending: M51.16 - Intervertebral disc disorders with radiculopathy... LUMBAR SPINE - 6 views CLINICAL HISTORY: Low back pain for 2 years. Numbness a daily in both legs. COMPARISON: None FINDINGS: Bones are grossly demineralized. Vertebral body heights appear maintained. Scattered endplate and facet joint degenerative changes with moderate disc space narrowing L3-L4, L4-L5 and L5-S1 with approximately 4 mm of anterolisthesis of L4 on L5. No pathological motion is seen. Restricted right-sided sidebending. XR/XR lumbar spine 6V w bending IMPRESSION: DEGENERATIVE CHANGES INVOLVING THE LUMBAR SPINE WITHOUT ACUTE BONY PROCESS. Impression dictated by: Francisco J Benton Jr. DMeenaOMeena11/16/2023 4:37 PM Dictation Location: [place] [address] Transcribed By: STAR 11/16/23 1637 Dictated By: Francisco J Benton Jr, DO 11/16/23 1636 Signed By: 11/16/23 1637 Normal [facility] MR lumbar spine wo marii MR lumbar spine wo con [facility] Main [place] [address] [place], [place] [id number] XRay Report Signed Patient: Breann Starks MR#: [id number] : 1945 Acct:[id number] Age/Sex: 77 / F ADM Date: 10/11/23 Loc: MR Room: Type: [facility] Attending Dr: Claire DESIR Copies to: THANG Porter Ordering Provider: THANG Porter Date of Service: 10/11/23 MR/MR lumbar spine wo con: LUMBAR RADICULPATHY ([id number]) XR/XR pre/post mri xray: LUMBAR RADICULPATHY CLINICAL [...] Eleanor Reece M.D.10/11/2023 4:10 PM Dictation Location: [place] [address] Transcribed By: [facility] 10/11/23 161 Dictated By: Eleanor Reece MD 10/11/23 1133 Signed By: 10/11/23 1610 [facility] Office Visiton 07-05-2023 Follow-up visit [id number] Breann Starks 1945 F Date Provider Department Center 07/05/2023 YANCY IVERSON Family History Adopted: Yes Family history unknown: Yes Family Status - Relation Status Age at Mother Father Level of Service:79818 [place] OFFICE/OUTPATIENT ESTABLISHED LOW MDM 20-29 MIN Normal [facility] Office Visiton 03-01-2023 Follow-up visit [id number] Breann Starks 1945 F Date Provider Department Center 03/01/2023 YANCY IVERSON Family History Adopted: Yes Family history unknown: Yes Family Status - Relation Status Age at Mother Father Level of Service:56269 [place] OFFICE/OUTPATIENT ESTABLISHED MOD MDM 30-39 MIN Reason for Visit and Comments: Follow-up [423713] - 3 month follow up Normal [facility] XR LSPINE W_OBLS AND FLEX_EX Ton 01-31-2023 [...] by: PAULA DELGADO Date: 2023-01-31 11:34 Normal [facility] Physician Referralon 023 Physician Referral [id number] #1.00CD:127 Normal [facility] Ambulatory Visit Summaryon 0 01-11-2023 Ambulatory [...] Someone Will Contact You Regarding These Appointments [facility] External Ambulatory Referral, Patient choice/referral by family/friend, Pain Management, [facility] Pain managment., 01/11/23 11:02:00 EDT, Sciatica of left side Normal [facility] Ambulatory Visit Summary BREANN STARKS :1945 [...] longer receiving treatment for. Depression Migraines Normal [facility] Family Medicine Office/Clini c Noteon 01-11-2023 Family Medicine Office/Clinic Note HPI Staff Breann is a 77 year old female who presents today to [facility]. Establish Care: History: A fib, COPD, OA of LS and bilateral knees, PSVT, fatty liver, cervical radiculopathy, pacemaker, cirrhosis of the liver History of specialists: Dr. Gonzales, Dr. Kaur-Cardiology, Dr. Martin- chiropractor, [facility] Last provider: Elizabeth Winter recent labs: Jul 2022 Health Maintenance UTD: Colonoscopy: 2012, pt is due Mammogram: December 2022 at [facility] which was normal Pelvic/Pap: pt had a [...] longer taking that. will refer back to [place] [facility]. All questions answered. RTC as needed Ordered: methylPREDNISolone, = 1 packet(s), Oral, As Directed, as directed on package labeling, X 6 day(s), # 21 tab(s), Refills(s) 0, Pharmacy: [facility]/pharmacy #[id number], 141, cm, 01/11/23 10:30:00 EDT, Height/Length Dosing, 107.2, kg, 01/11/23 10:30:00 EDT, Weight Dosing [facility] External Ambulatory Referral 2. Myalgia (M79.10: Myalgia, unspecified site) medrol dose pack ordered Ordered: methylPREDNISolone, = 1 packet(s), Oral, As Directed, as directed on package labeling, X 6 day(s), # 21 tab(s), Refills(s) 0, Pharmacy: [facility]/pharmacy #[id number], 141, cm, 01/11/23 10:30:00 EDT, Height/Length Dosing, 107.2, kg, 01/11/23 10:30:00 EDT, Weight Dosing [facility] External Ambulatory Referral BMI 50.0-59.9, adult (Z68.43: [...] Oral, D (more content not included)... Normal [facility] Comment on above: Result Comment: Elec tronically Signed By: Barbara Dai\.juan pablo\Date and Time Signed: 01/11/23 11:12 EDT Lab Reportson 12-22-2022 Lab Reports [id number] #1.00CD:127 Normal [facility] 36on 12-17-2022 36 Pt has chose to stop taking atorvastatin Normal [facility] 36on 12-16-2022 36 She was started d/t elevated troponin with chest pain when she was admitted. I believe she was recommended outpatient ischemic sue cotto saw her on follow up, not sure if stress was ordered or determined not needed, I would follow up with her regarding it. Normal [facility] LIPID PROFILEon 12-16-2022 CHOL-HDL RATIO NORM SEE BELOW Normal [facility] Comment on above: Result Comment: 3.3 - 4.4 LOW RISK 4.4 - 7.1 AVERAGE RISK 7.1 - 11.0 MODERATE RISK >11.0 HIGH RISK Performed By: #### L IPID ####[facility] [address] [place], [place] [address]Yn. Erasmo Smith Cholesterol [Mass/Vol] 105 mg/dL Normal <=200 [facility] Comment on above: Performed By: #### L IPID ####[facility] [address] [place], [place] [address]Aa. Erasmo Smith Cholesterol in HDL [Mass/Vol] 48 mg/dL Normal 40-60 [facility] Comment on above: Performed By: #### L IPID ####[facility] [address] [place], [place] [address]Ry. Erasmo Smith Cholesterol in LDL [Mass/Vol] 48.2 mg/dL Normal [facility] Comment on above: Performed By: #### L IPID ####[facility] [address] [place], [place] [address]Oy. Erasmo Smith Cholesterol.total/Chol esterol in HDL [Mass ratio] 2.2 {ratio} Normal [facility] Comment on above: Performed By: #### L IPID ####[facility] [address] [place], [place] [address]Sv. Heavenlan Smith HDL NORMAL > or = 60 mg/dl - LOW CARDIOVASCULAR RISK <40 mg/dl - HIGH CARDIOVASCULAR RISK Normal [facility] Comment on above: Performed By: #### L IPID ####[facility] [address] [place], [place] [address]Ao. Erasmo Smith LDL CALC NORMAL SEE BELOW Normal [facility] Comment on above: Result Comment: <100 mg/dl OPTIMAL 100 - 129 mg/dl NEAR OR ABOVE OPTIMAL 130 - 159 mg/dl BORDERLINE HIGH 160 - 189 mg/dl HIGH >190 mg/dl VERY HIGH Performed By: #### L IPID ####[facility] [address] [place], [place] [address]Yz. Erasmo Smith Triglyceride [Mass/Vol] 44 mg/dL Normal <=150 [facility] Comment on above: Performed By: #### L IPID ####[facility] [address] [place], [place] [address]Gb. Erasmo Smith VLDL CALC 8.8 mg/dL Normal [facility] Comment on above: Performed By: #### L IPID ####[facility] [address] [place], [place] [address]Ll. Erasmo Smith Echocardiographyon 3 Echocardiography [id number] #1.00CD:127 Normal [facility] Outside [facility] Correspo ndenceon 12-13-2022 Outside [facility] Correspondence [id number] #1.00CD:127 Normal [facility] Outside [facility] Correspondence [id number]# 1.00CD:127 Normal [facility] Office Visiton 12-08-2022 Follow-up visit [id number] Breann Starks 1945 F Date Provider Department Center 12/08/2022 [address]-LUFNAGEKOSUE KAUR [facility] Family History Adopted: Yes Family history unknown: Yes Family Status - Relation Status Age at Mother Father Level of Service:28712 [place] OFFICE/OUTPATIENT ESTABLISHED MOD MDM 30-39 MIN Reason for Visit and Comments: Follow-up [190967] - Discuss stress test. Unable to come up with answers to whats going on Normal [facility] CULTURE BLOODon 12-04-2022 Microscopic examination of blood, [...] F Trimethoprim/Sulfame thoxazole <=20 S F Normal [facility] Comment on above: Performed By: #### B LDCX1 ####[facility] [address] [place], [place] [address]Dr. Erasmo Smith BNPon 12-03-2022 Natriuretic peptide B (Bld) [Mass/Vol] 413.0 pg/mL Normal <=1,800.0 [facility] Comment on above: Performed By: #### B CUSTOMER CARE SPECIALIST #### [facility] Laboratory [address] [place] [address] Dr. Erasmo Smith CBC AUTO DIFFon 12-03-2022 BASO # 0.0 103/ul Normal 0.0-0.1 [facility] Comment on above: Performed By: #### C BC ####[facility] [address] [place], [place] [address]DrMeena Smith Basophils/100 WBC (Bld) 0.2 % Normal 0.2-2.0 [facility] Comment on above: Performed By: #### C BC ####[facility] [address] [place], [place] [address]DrMeena Smith EO # 0.4 103/ul Normal 0.0-0.7 [facility] Comment on above: Performed By: #### C BC ####[facility] [address] [place], [place] [address]Dr. Erasmo Smith Eosinophils/100 WBC (Bld) 2.1 % Normal 0.9-7.0 [facility] Comment on above: Performed By: #### C BC ####[facility] [address] [place], [place] [address]DrMeena Smith Erythrocyte distribution width (RBC) [Ratio] 17.2 % Critically high 11.0-15.0 [facility] Comment on above: Performed By: #### C BC ####[facility] [address] [place] [address]Dr. Erasmo Smith Hematocrit (Bld) [Volume fraction] 29.2 % Critically low 36.0-48.0 [facility] Comment on above: Performed By: #### C BC ####[facility] [address] [place] [address]Dr. Erasmo Smith Hemoglobin (Bld) [Mass/Vol] 9.5 g/dL Critically low 12.0-16.0 [facility] Comment on above: Performed By: #### C BC ####[facility] [address] [place], [place] [address]Dr. Erasmo Smith IG # 0.13 10e3/ul Critically high 0.00-0.03 [facility] Comment on above: Performed By: #### C BC ####[facility] [address] [place], [place] [address]Dr. Erasmo Smith IG % 0.8 % Critically high 0.0-0.5 [facility] Comment on above: Performed By: #### C BC ####[facility] [address] [place], [place] [address]Dr. Erasmo Smith LYMPH # 1.8 103/ul Normal 1.2-3.8 [facility] Comment on above: Performed By: #### C BC ####[facility] [address] [place], [place] [address]Dr. Erasmo Smith Lymphocytes/100 WBC (Bld) 10.3 % Critically low 20.5-60.0 [facility] Comment on above: Performed By: #### C BC ####[facility] [address] [place], [place] [address]Dr. Erasmo Smith MANUAL DIFF REQ NO Normal [facility] Comment on above: Performed By: #### C BC ####[facility] [address] [place], [place] [address]Dr. Erasmo Smith MCH (RBC) [Entitic mass] 25.7 pg Critically low 26.7-34.0 [facility] Comment on above: Performed By: #### C BC ####[facility] [address] [place] [address]Dr. Erasmo Smith MCHC (RBC) [Mass/Vol] 32.5 g/dL Normal 29.9-35.2 [facility] Comment on above: Performed By: #### C BC ####[facility] [address] [place] [address]Dr. Erasmo Smith MCV (RBC) [Entitic vol] 79.1 fL Critically low 81.0-99.0 [facility] Comment on above: Performed By: #### C BC ####[facility] [address] [place], [place] [address]Dr. Erasmo Smith MONO # 1.5 103/ul Critically high 0.3-0.8 [facility] Comment on above: Performed By: #### C BC ####[facility] [address] [place], [place] [address]Dr. Erasmo Luis Monocytes/100 WBC (Bld) 8.7 % Normal 1.7-12.0 [facility] Comment on above: Performed By: #### C BC ####[facility] [address] [place], [place] [address]Dr. Erasmo Smith NEUT # 13.4 103/ul Critically high 1.4-6.5 [facility] Comment on above: Performed By: #### C BC ####[facility] [address] [place], [place] [address]Dr. Erasmo Luis Neutrophils/100 WBC (Bld) 77.9 % Critically high 43.0-75.0 [facility] Comment on above: Performed By: #### C BC ####[facility] [address] [place], [place] [address]DrMeena Erasmo Luis Platelet mean volume (Bld) [Entitic vol] 9.3 fL Critically low 9.5-13.5 [facility] Comment on above: Performed By: #### C BC ####[facility] [address] [place], [place] [address]Hv. Heavenean Smith PLT 205 103/ul Normal 150-450 [facility] Comment on above: Performed By: #### C BC ####[facility] [address] [place], [place] [address]Dp. Heavenean Smith RBC 3.69 106/ul Critically low 4.20-5.40 [facility] Comment on above: Performed By: #### C BC ####[facility] [address] [place], [place] [address]Zr. Heavenean Smith WBC 17.2 103/ul Critically high 4.0-11.0 [facility] Comment on above: Performed By: #### C BC ####[facility] [address] [place], [place] [address]Ns. Erasmo Smith MAGNESIUMon 12-03-2022 Magnesium [Mass/Vol] 1.9 mg/dL Normal 1.8-2.4 [facility] Comment on above: Performed By: #### B CUSTOMER CARE SPECIALIST #### [facility] [address] [place] [address] [address] Erasmo Smith Orders Onlyon 12-03-2022 Orders Only [id number] Breann Starks 1945 F Date Provider Department [facility] Family History Family history unknown: Yes Normal [facility] PROF 14(COMP METB)on 023 Albumin [Mass/Vol] 2.6 g/dL Critically low 3.4-5.0 [facility] Comment on above: Performed By: #### B CUSTOMER CARE SPECIALIST #### [facility] [address] [place] [address] [address] Erasmo Smith Albumin/Globulin [Mass ratio] 0.6 {ratio} Normal [facility] Comment on above: Performed By: #### B CUSTOMER CARE SPECIALIST #### [facility] [address] [place] [address] [address] Erasmo Smith ALP [Catalytic activity/Vol] 123 U/L Critically high 46-116 [facility] Comment on above: Performed By: #### B CUSTOMER CARE SPECIALIST #### [facility] [address] [place] [address] [address] Erasmo Smith ALT [Catalytic activity/Vol] 28 U/L Normal 14-59 [facility] Comment on above: Performed By: #### B CUSTOMER CARE SPECIALIST #### [facility] [address] [place] [address] [address] Erasmo Smith Anion gap [Moles/Vol] 9.4 mmol/L Normal [facility] Comment on above: Performed By: #### B CUSTOMER CARE SPECIALIST #### [facility] [address] [place] [address] [address] Erasmo Smith AST [Catalytic activity/Vol] 21 U/L Normal 15-37 [facility] Comment on above: Performed By: #### B CUSTOMER CARE SPECIALIST #### [facility] [address] [place] [address] Dr. Erasmo Smith Bilirubin [Mass/Vol] 0.3 mg/dL Normal 0.2-1.0 [facility] Comment on above: Performed By: #### B CUSTOMER CARE SPECIALIST #### [facility] [address] [place] [address] Dr. Erasmo Smith Calcium [Mass/Vol] 8.3 mg/dL Critically low 8.5-10.1 [facility] Comment on above: Performed By: #### B CUSTOMER CARE SPECIALIST #### [facility] [address] [place] [address] Dr. Erasmo Smith Chloride [Moles/Vol] 105 mmol/L Normal 98-107 [facility] Comment on above: Performed By: #### B CUSTOMER CARE SPECIALIST #### [facility] [address] [place] [address] Dr. Erasmo Smith CO2 [Moles/Vol] 27.1 mmol/L Normal 21.0-32.0 [facility] Comment on above: Performed By: #### B CUSTOMER CARE SPECIALIST #### [facility] [address] [place] [address] Dr. Erasmo Smith Creatinine [Mass/Vol] 0.55 mg/dL Normal 0.55-1.02 [facility] Comment on above: Performed By: #### B CUSTOMER CARE SPECIALIST #### [facility] [address] [place] [address] [address] Erasmo Smith EGFR-AF [place] >60 Normal >=60 [facility] Comment on above: Performed By: #### B CUSTOMER CARE SPECIALIST #### [facility] [address] [place] [address] Dr. Erasmo Smith EGFR-NON AF [place] >60 Normal >=60 [facility] Comment on above: Performed By: #### B CUSTOMER CARE SPECIALIST #### [facility] [address] [place] [address] [address] Erasmo Smith Globulin (S) [Mass/Vol] 4.0 g/dL Normal [facility] Comment on above: Performed By: #### B CUSTOMER CARE SPECIALIST #### [facility] [address] [place] [address] Dr. Erasmo Smith Glucose [Mass/Vol] 132 mg/dL Critically high 74-106 [facility] Comment on above: Performed By: #### B CUSTOMER CARE SPECIALIST #### [facility] [address] [place] [address] Dr. Erasmo Smith Potassium [Moles/Vol] 3.5 mmol/L Normal 3.5-5.1 [facility] Comment on above: Performed By: #### B CUSTOMER CARE SPECIALIST #### [facility] [address] [place] [address] Dr. Erasmo Smith Protein [Mass/Vol] 6.6 g/dL Normal 6.4-8.2 [facility] Comment on above: Performed By: #### B CUSTOMER CARE SPECIALIST #### [facility] [address] [place] [address] Dr. Erasmo Smith Sodium [Moles/Vol] 138 mmol/L Normal 136-145 [facility] Comment on above: Performed By: #### B CUSTOMER CARE SPECIALIST #### [facility] [address] [place] [address] Dr. Erasmo Smith Urea nitrogen [Mass/Vol] 24.0 mg/dL Critically high 7.0-18.0 [facility] Comment on above: Performed By: #### B CUSTOMER CARE SPECIALIST #### [facility] [address] [place] [address] Dr. Erasmo Smith Urea nitrogen/Creatinine [Mass ratio] 43.6 mg/mg Normal [facility] Comment on above: Performed By: #### B CUSTOMER CARE SPECIALIST #### [facility] [address] [address] [address] Erasmo Smith PROTIMEon 12-03-2022 INR Coag (PPP) [Relative time] 4.41 {INR} Critically high [facility] Comment on above: Performed By: #### C MREP #### [facility] [address] [address] [address] Erasmo Smith INR GUIDELINES SEE BELOW Normal [facility] Comment on above: Result Comment: ABNER RED INR: 2.0 - 3.0 CONDITIONS NOT LISTED BELOW 2.5 - 3.5 FOR PROSTHETIC HEART VALVE REPLACEMENT 2.5 - 3.5 RECURRENT THROMBOSIS Performed By: #### C MREP #### [facility] [address] [place] [address] Dr. Erasmo Smith PT Coag (PPP) [Time] 43.0 s Critically high 9.0-11.6 [facility] Comment on above: Performed By: #### C MREP #### [facility] [address] [address] [address] Erasmo Smith BLOOD CULTURE ID PANELon A. baumannii Not detected Normal NOT DETECTED [facility] Comment on above: Performed By: #### B CID2 ####[facility] [address] [address]DrMeena Smith Bacteriodes fragilis Not detected Normal NOT DETECTED [facility] Comment on above: Performed By: #### B CID2 ####[facility] [address] [address]Dr. Erasmo Smith BCID CONTROLS PASSED Normal [facility] Comment on above: Performed By: #### B CID2 ####[facility] [address] [address]DrMeena Smith BCIDBTHD BLOOD CULTURE BOTTLE INFORMATION Normal [facility] Comment on above: Performed By: #### B CID2 ####[facility] [address] [address]Dr. Erasmo Smith BCIDHD1 ANTIMICROBIAL RESISTANCE GENES Normal [facility] Comment on above: Performed By: #### B CID2 ####[facility] [address] [address]Dr. Yiean Smith BCIDHD2 SEE BELOW Normal [facility] Comment on above: Result Comment: Note : Antimicrobial resitance can occur via multiple mechanisms. A Not Detected result for the [employer] antomicrobial resistance gene assays does not indicate antimicrobial susceptibility. Subculturing is required for species identification and susceptibility testing of isolates. Performed By: #### B CID2 ####[facility] [address] [place], [place] [address]Dr. Erasmo Smith BCIDHD3 Positive Normal [facility] Comment on above: Performed By: #### B CID2 ####[facility] Z[address] [place], [place] [address]Dr. Erasmo Smith BCIDHD4 Negative Normal [facility] Comment on above: Performed By: #### B CID2 ####[facility] Sub[address] [place], [place] [address]Dr. Erasmo Smith BCIDHD5 YEAST Normal [facility] Comment on above: Performed By: #### B CID2 ####[facility] K[address] [place], [place] [address]Dr. Erasmo Smith Bottle Set: Set 1 Normal [facility] Comment on above: Performed By: #### B CID2 ####[facility] V[address] [place], [place] [address]Dr. Erasmo Smith Bottle: Anaerobic Normal [facility] Comment on above: Performed By: #### B CID2 ####[facility] [address] [address]Dr. Yiean Smith C. neoformans/gattii Not detected Normal NOT DETECTED [facility] Comment on above: Performed By: #### B CID2 ####[facility] Cerq[address]xob[address] [place], [place] [address]Dr. Erasmo Smith Naye albicans Not detected Normal NOT DETECTED [facility] Comment on above: Performed By: #### B CID2 ####[facility] [address] [id number]. Erasmo Smith Naye auris Not detected Normal NOT DETECTED [facility] Comment on above: Performed By: #### B CID2 ####[facility] [address] [address]Dr. Yiean Smith Naye glabrata Not detected Normal NOT DETECTED [facility] Comment on above: Performed By: #### B CID2 ####[facility] [address] [id number]. Yiean Smith Naye Krusei Not detected Normal NOT DETECTED [facility] Comment on above: Performed By: #### B CID2 ####[facility] Bnvvjtlr[address] [place], [place] [address]Dr. Yiean Smith Naye Parapsilosis Not detected Normal NOT DETECTED [facility] Comment on above: Performed By: #### B CID2 ####[facility] [address] [place], [place] [address]Dr. Erasmo Smith Naye Tropicalis Not detected Normal NOT DETECTED [facility] Comment on above: Performed By: #### B CID2 ####[facility] Oyx[address] [place], [place] [address]Dr. Erasmo Smith CTX-M Resistant Gene Not Applicable Normal NOT DETECTE D [facility] Comment on above: Performed By: #### B CID2 ####[facility] Ltaax[address] [place], [place] [address]Dr. Yiean Smith E. Cloacae complex Not detected Normal NOT DETECTED [facility] Comment on above: Performed By: #### B CID2 ####[facility] W[address]riartrbe[address] [place], [place] [address]Dr. Yiean Smith E. faecalis Not detected Normal NOT DETECTED [facility] Comment on above: Performed By: #### B CID2 ####[facility] W[address]jdjtbr[address] [place], [place] [address]Dr. Yiean Smith E. faecium Not detected Normal NOT DETECTED [facility] Comment on above: Performed By: #### B CID2 ####[facility] Yyhs[address] [place], [place] [address]Dr. Erasmo Smith Enterobacteriaceae Detected Critically abnormal NOT DETECTED [facility] Comment on above: Performed By: #### B CID2 ####[facility] [address] [address]Dr. Erasmo Smith Escherichia coli Detected Critically abnormal NOT DETECTED [facility] Comment on above: Performed By: #### B CID2 ####[facility] [address] [address]Dr. Erasmo Smith H. influenzae Not detected Normal NOT DETECTED [facility] Comment on above: Performed By: #### B CID2 ####[facility] Uwmfqwisxs[address] [place], [place] [address]Dr. Erasmo Smith IMP Resistant Gene Not Applicable Normal NOT DETECTED [facility] Comment on above: Performed By: #### B CID2 ####[facility] Kwvtccqfwz[address] [place], [place] [address]Dr. Erasmo Smith K. oxytoca Not detected Normal NOT DETECTED [facility] Comment on above: Performed By: #### B CID2 ####[facility] Mhvvyvyomq[address] [place], [place] [address]Dr. Erasmo Smith K. pneumoniae Not detected Normal NOT DETECTED [facility] Comment on above: Performed By: #### B CID2 ####[facility] Fweunprirl[address] [place], [place] [address]Dr. Erasmo Smith Klebsiella aerogenes Not detected Normal NOT DETECTED [facility] Comment on above: Performed By: #### B CID2 ####[facility] T[address]wobx[address] [place], [place] [address]Dr. Erasmo Smith KPC Resistant Gene Not detected Normal NOT DETECTED [facility] Comment on above: Performed By: #### B CID2 ####[facility] [address] [address]Dr. Erasmo Smith List. monocytogenes Not detected Normal NOT DETECTED [facility] Comment on above: Performed By: #### B CID2 ####[facility] [address]zy[address] [place], [place] [address]Dr. Erasmo Smith Mcr-1 Resistant Gene Not Applicable Normal NOT DETECTE D [facility] Comment on above: Performed By: #### B CID2 ####[facility] Pvqemtaukf[address] [place], [place] [address]Dr. Heavenean Luis mecA/C Not Applicable Normal NOT DETECTED [facility] Comment on above: Performed By: #### B CID2 ####[facility] W[address]iz[address] [place], [place] [address]Dr. Erasmo Smith mecA/C MREJ Not Applicable Normal NOT DETECTED [facility] Comment on above: Performed By: #### B CID2 ####[facility] Konwpk[address]xh[address] [place], [place] [address]Dr. Erasmo Smith N. meningitidis Not detected Normal NOT DETECTED [facility] Comment on above: Performed By: #### B CID2 ####[facility] Buyfhgdepv[address] [place], [place] [address]Dr. Erasmo Smith NDM Resistant Gene Not Applicable Normal NOT DETECTED [facility] Comment on above: Performed By: #### B CID2 ####[facility] Mgtsnbutbw[address] [place], [place] [address]Dr. Erasmo Luis Oxa-48-like Not Applicable Normal NOT DETECTED [facility] Comment on above: Performed By: #### B CID2 ####[facility] Zwxwaxkjdw[address] [place], [place] [address]Dr. Erasmo Smith Proteus Not detected Normal NOT DETECTED [facility] Comment on above: Performed By: #### B CID2 ####[facility] Pthuycnsyt[address] [place], [place] [address]Dr. Erasmo Smith Pseud. aeruginosa Not detected Normal NOT DETECTED [facility] Comment on above: Performed By: #### B CID2 ####[facility] Fscnlehxyo[address] [place], [place] [address]Dr. Erasmo Smith S. maltophilia Not detected Normal NOT DETECTED [facility] Comment on above: Performed By: #### B CID2 ####[facility] Zdiwxkdbxq[address] [place], [place] [address]Dr. Erasmo Smith Salmonella Not detected Normal NOT DETECTED [facility] Comment on above: Performed By: #### B CID2 ####[facility] [address] [address]Dr. Erasmo Smith Seratia marcescens Not detected Normal NOT DETECTED [facility] Comment on above: Performed By: #### B CID2 ####[facility] [address] [address]Dr. Erasmo Smith Site: l ac Normal [facility] Comment on above: Performed By: #### B CID2 ####[facility] Rkchdiezen[address] [place], [place] [address]Dr. Erasmo Smith Staph. aureus Not detected Normal NOT DETECTED [facility] Comment on above: Performed By: #### B CID2 ####[facility] Sqnxrhkuju[address] [place], [place] [address]Dr. Erasmo Smith Staph. epidermidis Not detected Normal NOT DETECTED [facility] Comment on above: Performed By: #### B CID2 ####[facility] Zjxbpsraun[address] [place], [place] [address]Dr. Erasmo Smith Staph. lugdunensis Not detected Normal NOT DETECTED [facility] Comment on above: Performed By: #### B CID2 ####[facility] Tzhfcnzzki[address] [place], [place] [address]Dr. Erasmo Smith Staphylococcus Not detected Normal NOT DETECTED [facility] Comment on above: Performed By: #### B CID2 ####[facility] Qhhgdjmfji[address] [place], [place] [address]Dr. Erasmo Msith Strep. agalactiae Not detected Normal NOT DETECTED [facility] Comment on above: Performed By: #### B CID2 ####[facility] Vwflealusx[address] [place], [place] [address]Dr. Erasmo Smith Strep. pneumoniae Not detected Normal NOT DETECTED [facility] Comment on above: Performed By: #### B CID2 ####[facility] Cwflbfquex[address] [place], [place] [address]Dr. Erasmo Smith Strep. pyogenes Not detected Normal NOT DETECTED [facility] Comment on above: Performed By: #### B CID2 ####[facility] [address] [address]Dr. Erasmo Smith Streptococcus Not detected Normal NOT DETECTED [facility] Comment on above: Performed By: #### B CID2 ####[facility] [address] [address]Dr. Erasmo Smith Fran/B Resist. Gene Not detected Normal NOT DETECTED [facility] Comment on above: Performed By: #### B CID2 ####[facility] [address] [address]Dr. Erasmo Smith VIM Resistant Gene Not Applicable Normal NOT DETECTED [facility] Comment on above: Performed By: #### B CID2 ####[facility] [address] [address]DrMeena Smith BNPon 12-02-2022 Natriuretic peptide B (Bld) [Mass/Vol] 1059.0 pg/mL Normal <=1,800.0 [facility] Comment on above: Performed By: #### B CUSTOMER CARE SPECIALIST #### [facility] [address] [address] [address] Erasmo Smith CBC AUTO DIFFon 12-02-2022 BASO # 0.0 103/ul Normal 0.0-0.1 [facility] Comment on above: Performed By: #### C BC ####[facility] [address] [address]Dr. Erasmo Smith Basophils/100 WBC (Bld) 0.2 % Normal 0.2-2.0 [facility] Comment on above: Performed By: #### C BC ####[facility] Yrfdruxf[address] [place], [place] [address]DrMeena Smith EO # 0.0 103/ul Normal 0.0-0.7 [facility] Comment on above: Performed By: #### C BC ####[facility] [address] [address]DrMeena Smith Eosinophils/100 WBC (Bld) 0.0 % Critically low 0.9-7.0 [facility] Comment on above: Performed By: #### C BC ####[facility] [address] [address]Dr. Erasmo Smith Erythrocyte distribution width (RBC) [Ratio] 17.3 % Critically high 11.0-15.0 [facility] Comment on above: Performed By: #### C BC ####[facility] [address] [address]Dr. Erasmo Smith Hematocrit (Bld) [Volume fraction] 31.4 % Critically low 36.0-48.0 [facility] Comment on above: Performed By: #### C BC ####[facility] Cghmfbfnis[address] [place], [place] [address]Dr. Erasmo Smith Hemoglobin (Bld) [Mass/Vol] 10.0 g/dL Critically low 12.0-16.0 [facility] Comment on above: Performed By: #### C BC ####[facility] Oockbjwqcv[address] [place], [place] [address]Dr. Erasmo Smith IG # 0.06 10e3/ul Critically high 0.00-0.03 [facility] Comment on above: Performed By: #### C BC ####[facility] Yrwktuiavs[address] [place], [place] [address]Dr. Erasmo Smith IG % 0.4 % Normal 0.0-0.5 [facility] Comment on above: Performed By: #### C BC ####[facility] Cuegrzijbg[address] [place], [place] [address]Dr. Heavenean Smith LYMPH # 1.3 103/ul Normal 1.2-3.8 [facility] Comment on above: Performed By: #### C BC ####[facility] Rctdvtzdsv[address] [place], [place] [address]Dr. Heavenean Smith Lymphocytes/100 WBC (Bld) 8.1 % Critically low 20.5-60.0 [facility] Comment on above: Performed By: #### C BC ####[facility] Zrfuoqygfs[address] [place], [place] [address]Dr. Erasmo Luis MANUAL DIFF REQ NO Normal [facility] Comment on above: Performed By: #### C BC ####[facility] [address] [id number]. Erasmo Smith MCH (RBC) [Entitic mass] 25.6 pg Critically low 26.7-34.0 [facility] Comment on above: Performed By: #### C BC ####[facility] [address] [address]Dr. Erasmo Smith MCHC (RBC) [Mass/Vol] 31.8 g/dL Normal 29.9-35.2 [facility] Comment on above: Performed By: #### C BC ####[facility] [address] [place], [place] [address]Dr. Erasmo Luis MCV (RBC) [Entitic vol] 80.3 fL Critically low 81.0-99.0 [facility] Comment on above: Performed By: #### C BC ####[facility] Kvfsquvcoz[address] [place], [place] [address]Dr. Erasmo Luis MONO # 0.6 103/ul Normal 0.3-0.8 [facility] Comment on above: Performed By: #### C BC ####[facility] R[address]ak[address] [place], [place] [address]Dr. Heavenean Smith Monocytes/100 WBC (Bld) 3.7 % Normal 1.7-12.0 [facility] Comment on above: Performed By: #### C BC ####[facility] [address] [place], [place] [address]Dr. Erasmo Smith NEUT # 14.5 103/ul Critically high 1.4-6.5 [facility] Comment on above: Performed By: #### C BC ####[facility] [address] [place], [place] [address]Dr. Heavenean Smith Neutrophils/100 WBC (Bld) 87.6 % Critically high 43.0-75.0 [facility] Comment on above: Performed By: #### C BC ####[facility] Fbodoybcid[address] [place], [place] [address]Dr. Heavenean Smith Platelet mean volume (Bld) [Entitic vol] 10.0 fL Normal 9.5-13.5 [facility] Comment on above: Performed By: #### C BC ####[facility] [address] [place], [place] [address]Kt. Erasmo Smith PLT 206 103/ul Normal 150-450 [facility] Comment on above: Performed By: #### C BC ####[facility] X[address]ts[address] [place], [place] [address]Vy. Erasmo Smith RBC 3.91 106/ul Critically low 4.20-5.40 [facility] Comment on above: Performed By: #### C BC ####[facility] [address] [place], [place] [address]Ve. Erasmo Smith WBC 16.5 103/ul Critically high 4.0-11.0 [facility] Comment on above: Performed By: #### C BC ####[facility] [address] [place], [place] [address]Pu. Erasmo Smith ECHOCARDIO M/2D COMPLETEon 0 12-02-2022 ECHOCARDIO M/2D COMPLETE Patient: BREANN STARKS Exam Date: 12/02/2022 : 1945 Gender:F Ordering : KAYLEY HOLMAN . Admission #: [id number] Family : DR LUISANA FISHER . Order #: [id number] CLICK HERE TO VIEW EXAM ECHOCARDIOGRAM REPORT [...] Salazar M.D. on 12/02/2022 at 21:58 Normal [facility] MAGNESIUMon 12-02-2022 Magnesium [Mass/Vol] 2.0 mg/dL Normal 1.8-2.4 [facility] Comment on above: Performed By: #### B CUSTOMER CARE SPECIALIST #### [facility] [address] [place] [address] Dr. Erasmo Smith PROF 14(COMP METB)on 023 Albumin [Mass/Vol] 2.7 g/dL Critically low 3.4-5.0 [facility] Comment on above: Performed By: #### B CUSTOMER CARE SPECIALIST #### [facility] [address] [place] [address] Dr. Erasmo Smith Albumin/Globulin [Mass ratio] 0.6 {ratio} Normal [facility] Comment on above: Performed By: #### B CUSTOMER CARE SPECIALIST #### [facility] [address] [place] [address] Dr. Erasmo Smith ALP [Catalytic activity/Vol] 128 U/L Critically high 46-116 [facility] Comment on above: Performed By: #### B CUSTOMER CARE SPECIALIST #### [facility] [address] [place] [address] Dr. Erasmo Smith ALT [Catalytic activity/Vol] 34 U/L Normal 14-59 [facility] Comment on above: Performed By: #### B CUSTOMER CARE SPECIALIST #### [facility] [address] [place] [address] Dr. Erasmo Smith Anion gap [Moles/Vol] 10.6 mmol/L Normal [facility] Comment on above: Performed By: #### B CUSTOMER CARE SPECIALIST #### [facility] [address] [place] [address] Dr. Erasmo Smith AST [Catalytic activity/Vol] 27 U/L Normal 15-37 [facility] Comment on above: Performed By: #### B CUSTOMER CARE SPECIALIST #### [facility] [address] [place] [address] Dr. Erasmo Smith Bilirubin [Mass/Vol] 0.5 mg/dL Normal 0.2-1.0 [facility] Comment on above: Performed By: #### B CUSTOMER CARE SPECIALIST #### [facility] [address] [place] [address] Dr. Erasmo Smith Calcium [Mass/Vol] 8.4 mg/dL Critically low 8.5-10.1 [facility] Comment on above: Performed By: #### B CUSTOMER CARE SPECIALIST #### [facility] [address] [address] [address] Erasmo Smith Chloride [Moles/Vol] 104 mmol/L Normal 98-107 [facility] Comment on above: Performed By: #### B CUSTOMER CARE SPECIALIST #### [facility] [address] [place] [address] Dr. Erasmo Smith CO2 [Moles/Vol] 26.2 mmol/L Normal 21.0-32.0 [facility] Comment on above: Performed By: #### B CUSTOMER CARE SPECIALIST #### [facility] [address] [place] [address] Dr. Erasmo Smith Creatinine [Mass/Vol] 0.52 mg/dL Critically low 0.55-1.02 [facility] Comment on above: Performed By: #### B CUSTOMER CARE SPECIALIST #### [facility] [address] [place] [address] Dr. Erasmo Smith EGFR-AF [place] >60 Normal >=60 [facility] Comment on above: Performed By: #### B CUSTOMER CARE SPECIALIST #### [facility] [address] [place] [address] Dr. Erasmo Smith EGFR-NON AF [place] >60 Normal >=60 [facility] Comment on above: Performed By: #### B CUSTOMER CARE SPECIALIST #### [facility] [address] [place] [address] Dr. Erasmo Smith Globulin (S) [Mass/Vol] 4.3 g/dL Normal [facility] Comment on above: Performed By: #### B CUSTOMER CARE SPECIALIST #### [facility] [address] [place] [address] Dr. Erasmo Smith Glucose [Mass/Vol] 135 mg/dL Critically high 74-106 [facility] Comment on above: Performed By: #### B CUSTOMER CARE SPECIALIST #### [facility] [address] [place] [address] Dr. Erasmo Smith Potassium [Moles/Vol] 3.8 mmol/L Normal 3.5-5.1 [facility] Comment on above: Performed By: #### B CUSTOMER CARE SPECIALIST #### [facility] [address] [place] [address] Dr. Erasmo Smith Protein [Mass/Vol] 7.0 g/dL Normal 6.4-8.2 [facility] Comment on above: Performed By: #### B CUSTOMER CARE SPECIALIST #### [facility] [address] [place] [address] Dr. Erasmo Smith Sodium [Moles/Vol] 137 mmol/L Normal 136-145 [facility] Comment on above: Performed By: #### B CUSTOMER CARE SPECIALIST #### [facility] [address] [place] [address] Dr. Erasmo Smith Urea nitrogen [Mass/Vol] 16.0 mg/dL Normal 7.0-18.0 [facility] Comment on above: Performed By: #### B CUSTOMER CARE SPECIALIST #### [facility] [address] [place] [address] Dr. Erasmo Smith Urea nitrogen/Creatinine [Mass ratio] 30.8 mg/mg Normal [facility] Comment on above: Performed By: #### B CUSTOMER CARE SPECIALIST #### [facility] [address] [place] [address] Dr. Erasmo Smith PROTIMEon 12-02-2022 INR Coag (PPP) [Relative time] 4.39 {INR} Critically high [facility] Comment on above: Performed By: #### P T #### [facility] [address] [place] [address] Dr. Erasmo Smith INR GUIDELINES SEE BELOW Normal [facility] Comment on above: Result Comment: ABNER RED INR: 2.0 - 3.0 CONDITIONS NOT LISTED BELOW 2.5 - 3.5 FOR PROSTHETIC HEART VALVE REPLACEMENT 2.5 - 3.5 RECURRENT THROMBOSIS Performed By: #### P T #### [facility] [address] [place] [address] Dr. Erasmo Smith PT Coag (PPP) [Time] 42.8 s Critically high 9.0-11.6 [facility] Comment on above: Performed By: #### P T #### [facility] [address] [address] [address] Erasmo Smith UA RANDOM W/MICROSCOPICon BACTERIA NONE SEEN Normal NONE SEEN [facility] Comment on above: Performed By: #### U AMIC ####[facility] [address] [address]Dr. Erasmo Smith Bilirubin Ql (U) Negative Normal NEGATIVE [facility] Comment on above: Performed By: #### U AMIC ####[facility] [address] [address]Dr. Erasmo Smith CAST NONE SEEN Normal NONE SEEN [facility] Comment on above: Performed By: #### U AMIC ####[facility] [address] [address]Dr. Erasmo Smith Clarity (U) CLEAR Normal CLEAR [facility] Comment on above: Performed By: #### U AMIC ####[facility] [address] [address]Dr. Erasmo Smith Color (U) YELLOW Normal YELLOW [facility] Comment on above: Performed By: #### U AMIC ####[facility] [address] [address]Dr. Erasmo Smith Crystals LM Nom (Urine sed) NONE SEEN Normal NONE SEEN [facility] Comment on above: Performed By: #### U AMIC ####[facility] [address] [address]Dr. Erasmo Smith Epithelial cells LM Ql (Urine sed) RARE Normal NONE SEEN /RARE [facility] Comment on above: Performed By: #### U AMIC ####[facility] [address] [address]Dr. Erasmo Smith Glucose Ql (U) Negative Normal NEGATIVE [facility] Comment on above: Performed By: #### U AMIC ####[facility] [address] [address]Dr. Erasmo Smith Hemoglobin Ql (U) SMALL Abnormal NEGATIVE [facility] Comment on above: Performed By: #### U AMIC ####[facility] [address] [address]Dr. Erasmo Smith Ketones Ql (U) 15 mg/dl Abnormal NEGATIVE [facility] Comment on above: Performed By: #### U AMIC ####[facility] [address] [place], [place] [address]Dr. Erasmo Smith LEUKOCYTES Negative Normal NEGATIVE [facility] Comment on above: Performed By: #### U AMIC ####[facility] [address] [place], [place] [address]Dr. Erasmo Smith MUCOUS NONE SEEN Normal NONE SEEN [facility] Comment on above: Performed By: #### U AMIC ####[facility] [address] [place], [place] [address]Dr. Erasmo Smith Nitrite Ql (U) Negative Normal NEGATIVE [facility] Comment on above: Performed By: #### U AMIC ####[facility] [address] [place], [place] [address]Dr. Erasmo Smith pH (U) 6.0 [pH] Normal 5-9 [facility] Comment on above: Performed By: #### U AMIC ####[facility] [address] [place], [place] [address]Dr. Erasmo Smith RBC 0-2 Normal 0-2 [facility] Comment on above: Performed By: #### U AMIC ####[facility] [address] [place], [place] [address]Dr. Erasmo Smith SPEC GRAVITY 1.025 Normal 1.005-<=1.02 5 [facility] Comment on above: Performed By: #### U AMIC ####[facility] [address] [place], [place] [address]Dr. Erasmo Smith UA PROTEIN TRACE Normal NEGATIVE/ TRACE [facility] Comment on above: Performed By: #### U AMIC ####[facility] [address] [place], [place] [address]Dr. Erasmo Smith Urobilinogen Qn (U) 4 {Shraddha'U}/dL Abnormal 0.2 - 1.0 [facility] Comment on above: Performed By: #### U AMIC ####[facility] [address] [place], [place] [address]QcDr. Erasmo Smith WBC 0-2 Abnormal NONE SEEN [facility] Comment on above: Performed By: #### U AMIC ####[facility] [address] [id number]. Erasmo Smith CARDIAC ROSA ELENA 3-6on 3 CK [Catalytic activity/Vol] 53 U/L Normal 26-192 [facility] Comment on above: Performed By: #### C MREP #### [facility] [address] [address] [address] Erasmo Smith CK.MB [Mass/Vol] 0.90 ng/mL Normal <=3.60 [facility] Comment on above: Performed By: #### C MREP #### [facility] [address] [place] [address] Dr. Erasmo Smith HSTROP 116.7 pg/mL Critically high 4.0-51.3 [facility] Comment on above: Result Comment: CUT- OFF POINTS HAVE BEEN ESTABLISHED BASED ON THE FOURTH UNIVERSAL DEFINITIONS OF MYOCARDIAL INFARCTION. THE UPPER REFERENCE LIMIT (URL) OF TROPONIN, DEFINED THE 99TH PERCENTILE OF cTnI DISTRIBUTION IN A REFERENCE POPULATION, HAS BEEN CONFIRMED THE DECISION THRESHOLD FOR CT DIAGNOSIS. Performed By: #### C MREP #### [facility] [address] [place] [address] Dr. Erasmo Smith CK [Catalytic activity/Vol] 47 U/L Normal 26-192 [facility] Comment on above: Performed By: #### B CUSTOMER CARE SPECIALIST #### [facility] [address] [place] [address] Dr. Erasmo BAE.MB [Mass/Vol] 1.00 ng/mL Normal <=3.60 [facility] Comment on above: Performed By: #### B CUSTOMER CARE SPECIALIST #### [facility] [address] [place] [address] Dr. Erasmo Smith HSTROP 154.3 pg/mL Critically high 4.0-51.3 [facility] Comment on above: Result Comment: CUT- OFF POINTS HAVE BEEN ESTABLISHED BASED ON THE FOURTH UNIVERSAL DEFINITIONS OF MYOCARDIAL INFARCTION. THE UPPER REFERENCE LIMIT (URL) OF TROPONIN, DEFINED THE 99TH PERCENTILE OF cTnI DISTRIBUTION IN A REFERENCE POPULATION, HAS BEEN CONFIRMED THE DECISION THRESHOLD FOR CT DIAGNOSIS. Performed By: #### B CUSTOMER CARE SPECIALIST #### [facility] [address] [place] [address] Dr. Erasmo Smith CBC W MANUAL DIFFon 12-02-19 23 ATYPICAL LYMPH # Normal [facility] Comment on above: Performed By: #### C BCMAN #### [facility] [address] [place] [address] Dr. Erasmo Smith ATYPICAL LYMPH % Normal [facility] Comment on above: Performed By: #### C BCMAN #### [facility] [address] [place] [address] Dr. Erasmo Smith BAND # 0.6 103/ul Critically high 0.0-0.3 [facility] Comment on above: Performed By: #### C ALHAJIMAN #### [facility] [address] [place] [address] Dr. Erasmo Smith BAND % 3 % Normal 0-5 [facility] Comment on above: Performed By: #### C BCMAN #### [facility] [address] [place] [address] Dr. Erasmo Smith BASOM # 0.00 103/ul Normal 0.00-0.10 [facility] Comment on above: Performed By: #### C ALHAJIMAN #### [facility] [address] [place] [address] Dr. Erasmo Smith BASOM % 0.0 % Critically low 0.2-2.0 [facility] Comment on above: Performed By: #### C BCBLAISE #### [facility] [address] [place] [address] Dr. Erasmo Smith BLAST # Normal [facility] Comment on above: Performed By: #### C BCMAN #### [facility] [address] [place] [address] Dr. Erasmo Smith BLAST % Normal [facility] Comment on above: Performed By: #### C BCMAN #### [facility] [address] [place] [address] Dr. Erasmo Smith CORRECTED WBC Normal 4.0-11.0 [facility] Comment on above: Performed By: #### C BCBLAISE #### [facility] [address] [address] [address] Erasmo Smith EOS # 0.19 103/ul Normal 0.00-0.70 [facility] Comment on above: Performed By: #### C ANGELA #### [facility] [address] [address] [address] Erasmo Smith EOS% 1.0 % Normal 0.9-7.0 [facility] Comment on above: Performed By: #### C BCBLAISE #### [facility] [address] [place] [address] Dr. Erasmo Smith HCT 32.7 % Critically low 36.0-48.0 [facility] Comment on above: Performed By: #### C ANGELA #### [facility] [address] [place] [address] Dr. Erasmo Smith HGB 10.5 g/dl Critically low 12.0-16.0 [facility] Comment on above: Performed By: #### C ANGELA #### [facility] [address] [place] [address] Dr. Erasmo Smith LYMPHM # 0.76 103/ul Critically low 1.20-3.80 [facility] Comment on above: Performed By: #### C ANGELA #### [facility] [address] [place] [address] Dr. Erasmo Smith LYMPHM% 4.0 % Critically low 20.5-60.0 [facility] Comment on above: Performed By: #### C BCBLAISE #### [facility] [address] [address] [address] Erasmo Smith MCH 25.9 pg Critically low 26.7-34.0 [facility] Comment on above: Performed By: #### C BCBLAISE #### [facility] [address] [address] [address] Erasmo Smith MCHC 32.1 g/dl Normal 29.9-35.2 [facility] Comment on above: Performed By: #### C ANGELA #### [facility] [address] [address] [address] Erasmo Smith MCV 80.5 fL Critically low 81.0-99.0 [facility] Comment on above: Performed By: #### C ANGELA #### [facility] [address] [place] [address] Dr. Erasmo Smith METAMYELOCYTE # Normal [facility] Comment on above: Performed By: #### C ANGELA #### [facility] [address] [place] [address] Dr. Erasmo Smith METAMYELOCYTE % Normal [facility] Comment on above: Performed By: #### C ANGELA #### [facility] [address] [place] [address] Dr. Erasmo Smith MONOM# 1.14 103/ul Critically high 0.30-0.80 [facility] Comment on above: Performed By: #### C ANGELA #### [facility] [address] [place] [address] Dr. Erasmo Smith MONOM% 6.0 % Normal 1.7-12.0 [facility] Comment on above: Performed By: #### C ANGELA #### [facility] [address] [place] [address] Dr. Erasmo Smith MPV 9.4 fL Critically low 9.5-13.5 [facility] Comment on above: Performed By: #### C ANGELA #### [facility] [address] [place] [address] Dr. Erasmo Smith MYELOCYTE # Normal [facility] Comment on above: Performed By: #### C ANGELA #### [facility] [address] [place] [address] Dr. Erasmo Smith MYELOCYTE % Normal [facility] Comment on above: Performed By: #### C ANGELA #### [facility] [address] [place] [address] Dr. Erasmo Smith NRBC Normal [facility] Comment on above: Performed By: #### C ANGELA #### [facility] [address] [place], [place] [address] Dr. Erasmo Smith PLT 195 103/ul Normal 150-450 [facility] Comment on above: Performed By: #### C ANGELA #### [facility] [address] [id number] Erasmo Smith RBC 4.06 106/ul Critically low 4.20-5.40 [facility] Comment on above: Performed By: #### C ANGELA #### [facility] [address] [address] [address] Erasmo Smith RDW 17.7 % Critically high 11.0-15.0 [facility] Comment on above: Performed By: #### Yamile MILLER #### [facility] [address] [address] [address] Erasmo Smith SEG # 16.34 103/ul Critically high 1.40-6.50 [facility] Comment on above: Performed By: #### Yamile MILLER #### [facility] [address] [address] [address] Erasmo Smith SEG % 86.0 % Critically high 43.0-75.0 [facility] Comment on above: Performed By: #### Yamile MILLER #### [facility] [address] [address] [address] Erasmo Smith WBC 19.0 103/ul Critically high 4.0-11.0 [facility] Comment on above: Performed By: #### Yamile MILLER #### [facility] [address] [address] [address] HEAD WO CONon [...] SALOME MCCORMICK Date: 2022 14:50 Normal [facility] CULTURE BLOODon 2022 Microscopic examination of blood, culture Culture Observations: Aerobic and Anaerobic bottle positive. BCID: E. Coli Culture Observations: Refer to for VIOLET. Isolate 1 Escherichia coli Growth of Normal [facility] Comment on above: Performed By: #### B LDCX2 ####[facility] [address] [place], [place] [address]NrDr. Erasmo Smith [facility]-11 SARS-CoV-2 (COVID-19) RNA EMILY+probe Ql (Unsp spec) Not detected Normal NOT DETECTED [facility] Comment on above: Result Comment: When diagnostic [...] for this test is supported by the [place] of Health and Human Service's declaration that [...] used). Performed By: #### C MREP #### [facility] [address] [place], [place] [address] Dr. Erasmo Smith LACTATE/LACTIC ACIDon 2022 Lactate [Moles/Vol] 1.2 mmol/L Normal 0.4-2.0 [facility] Comment on above: Performed By: #### L ACT ####[facility] [address] [id number]. Erasmo Smith PH VENOUS BLOODon 2022 PCO2 VENOUS 37.8 mmHg Critically low 40.0-52.0 [facility] Comment on above: Performed By: #### P HVEN ####[facility] [address] [id number]. Erasmo Smith pH VENOUS 7.417 Normal 7.330-7.430 [facility] Comment on above: Performed By: #### P HVEN ####[facility] [address] [address]Dr. Erasmo Smith PROF 14(COMP METB)on 023 Albumin [Mass/Vol] 3.1 g/dL Critically low 3.4-5.0 [facility] Comment on above: Performed By: #### H ALEXSANDER, CMP ####[facility] [address] [address]Dr. Erasmo Smith Albumin/Globulin [Mass ratio] 0.8 {ratio} Normal [facility] Comment on above: Performed By: #### H ALEXSANDER, CMP ####[facility] [address] [address]Dr. Erasmo Smith ALP [Catalytic activity/Vol] 194 U/L Critically high 46-116 [facility] Comment on above: Performed By: #### H ALEXSANDER, CMP ####[facility] [address] [address]Dr. Erasmo Smith ALT [Catalytic activity/Vol] 37 U/L Normal 14-59 [facility] Comment on above: Performed By: #### H ALEXSANDER, CMP ####[facility] [address] [address]Dr. Erasmo Smith Anion gap [Moles/Vol] 14.6 mmol/L Normal [facility] Comment on above: Performed By: #### H ALEXSANDER, CMP ####[facility] [address] [address]Dr. Erasmo Smith AST [Catalytic activity/Vol] 32 U/L Normal 15-37 [facility] Comment on above: Performed By: #### H STROPN, CMP ####[facility] [address] [address]Dr. Erasmo Smith Bilirubin [Mass/Vol] 1.0 mg/dL Normal 0.2-1.0 [facility] Comment on above: Performed By: #### H STROPN, CMP ####[facility] [address] [place], [place] [address]Dr. Erasmo Smith Calcium [Mass/Vol] 8.9 mg/dL Normal 8.5-10.1 [facility] Comment on above: Performed By: #### H STROPN, CMP ####[facility] [address] [place], [place] [address]Dr. Erasmo Smith Chloride [Moles/Vol] 103 mmol/L Normal 98-107 [facility] Comment on above: Performed By: #### H STROPN, CMP ####[facility] [address] [place], [place] [address]Dr. Erasmo Smith CO2 [Moles/Vol] 23.6 mmol/L Normal 21.0-32.0 [facility] Comment on above: Performed By: #### H STROPN, CMP ####[facility] [address] [place], [place] [address]Dr. Erasmo Smith Creatinine [Mass/Vol] 0.69 mg/dL Normal 0.55-1.02 [facility] Comment on above: Performed By: #### H STROPN, CMP ####[facility] [address] [place], [place] [address]Dr. Erasmo Smith EGFR-AF [place] >60 Normal >=60 [facility] Comment on above: Performed By: #### H STROPN, CMP ####[facility] [address] [place], [place] [address]Dr. Erasmo Smith EGFR-NON AF [place] >60 Normal >=60 [facility] Comment on above: Performed By: #### H STROPN, CMP ####[facility] [address] [place], [place] [address]Dr. Erasmo Smith Globulin (S) [Mass/Vol] 4.1 g/dL Normal [facility] Comment on above: Performed By: #### H ALEXSANDER, CMP ####[facility] [address] [address]Dr. Erasmo Smith Glucose [Mass/Vol] 121 mg/dL Critically high 74-106 [facility] Comment on above: Performed By: #### H ALEXSANDER, CMP ####[facility] [address] [address]Dr. Erasmo Smith Potassium [Moles/Vol] 3.2 mmol/L Critically low 3.5-5.1 [facility] Comment on above: Performed By: #### H ALEXSANDER, CMP ####[facility] [address] [address]Dr. Erasmo Smith Protein [Mass/Vol] 7.2 g/dL Normal 6.4-8.2 [facility] [place] [facility] Comment on above: Performed By: #### H ALEXSANDER, CMP ####[facility] [address] [place], [place] [address]Dr. Erasmo Smith Sodium [Moles/Vol] 138 mmol/L Normal 136-145 [facility] [place] [facility] Comment on above: Performed By: #### H ALEXSANDER, CMP ####[facility] [address] [address]Dr. Erasmo Smith Urea nitrogen [Mass/Vol] 17.0 mg/dL Normal 7.0-18.0 [facility] Comment on above: Performed By: #### H ALEXSANDER, CMP ####[facility] [address] [address]Dr. Erasmo Smith Urea nitrogen/Creatinine [Mass ratio] 24.6 mg/mg Normal [facility] Comment on above: Performed By: #### H ALEXSANDER, CMP ####[facility] [address] [address]Dr. Erasmo Smith PROTIMEon 2022 INR Coag (PPP) [Relative time] 3.58 {INR} Normal [facility] Comment on above: Performed By: #### P T, PTT #### [facility] [address] [place] [address] Dr. Erasmo Smith INR GUIDELINES SEE BELOW Normal [facility] Comment on above: Result Comment: ABNER RED INR: 2.0 - 3.0 CONDITIONS NOT LISTED BELOW 2.5 - 3.5 FOR PROSTHETIC HEART VALVE REPLACEMENT 2.5 - 3.5 RECURRENT THROMBOSIS Performed By: #### P T, PTT #### [facility] [address] [place] [address] Dr. Erasmo Smith PT Coag (PPP) [Time] 35.3 s Critically high 9.0-11.6 [facility] Comment on above: Performed By: #### P T, PTT #### [facility] [address] [place] [address] Dr. Erasmo Smith PTTon 2022 aPTT Coag (Bld) [Time] 40.3 s Critically high 22.3-36. 2 [facility] Comment on above: Performed By: #### P T, PTT #### [facility] [address] [place] [address] Dr. Erasmo Smith TROPONIN, HIGH SENSITIVITYon 2022 HSTROP 194.7 pg/mL Critically high 4.0-51.3 [facility] Comment on above: Result Comment: CUT- OFF POINTS HAVE BEEN ESTABLISHED BASED ON THE FOURTH UNIVERSAL DEFINITIONS OF MYOCARDIAL INFARCTION. THE UPPER REFERENCE LIMIT (URL) OF TROPONIN, DEFINED THE 99TH PERCENTILE OF cTnI DISTRIBUTION IN A REFERENCE POPULATION, HAS BEEN CONFIRMED THE DECISION THRESHOLD FOR CT DIAGNOSIS. Performed By: #### C MREP #### [facility] [address] [place] [address] Dr. Erasmo Smith HSTROP 218.0 pg/mL Critically high 4.0-51.3 [facility] Comment on above: Result Comment: CUT- OFF POINTS HAVE BEEN ESTABLISHED BASED ON THE FOURTH UNIVERSAL DEFINITIONS OF MYOCARDIAL INFARCTION. THE UPPER REFERENCE LIMIT (URL) OF TROPONIN, DEFINED THE 99TH PERCENTILE OF cTnI DISTRIBUTION IN A REFERENCE POPULATION, HAS BEEN CONFIRMED THE DECISION THRESHOLD FOR CT DIAGNOSIS. Performed By: #### B CUSTOMER CARE SPECIALIST #### [facility] [address] [place] [address] Dr. Erasmo Smith XR CHEST 1 Von [...] by: HONG ALSTON Date: 2022 14:18 Normal [facility] Lab Reportson 11-30-2022 Lab Reports [id number]:[id number] Normal [facility] MG MAMM SCREEN 3D TOÑITO CADon 11-26-2022 MG MAMM SCREEN 3D TOÑITO CAD Patient: BREANN STARKS Exam Date: 11/26/2022 : 1945 Gender:F Ordering : DR LUISANA FISHER . Admission #: [id number] Family : Order #: [id number] CLICK HERE TO VIEW EXAM RADIOLOGY REPORT [...] Treatments None Family Cancers None LOCATION: [facility] BREAST COMPOSITION: Heterogeneously dense,which may obscure small [...] Paula Delgado M.D. on 11/26/2022 at 14:13 [facility] Office Visiton 11-10-2022 Follow-up visit [id number] Breann Starks T 1945 Date Provider Department Center 11/10/2022 Sadiq-CECILIO MEDINA CARD [facility] Family History Family history unknown: Yes Level of Service:23790 LA OFFICE/OUTPATIENT ESTABLISHED LOW MDM 20-29 MIN Reason for Visit and Comments: Follow-up [737366] Normal [facility] Refillon 09-18-2022 Refill [id number] Breann Starks T 1945 Provider Department Center 09/18/2022 YANCY IVERSON [facility] CARD [place] Family History Family history unknown: Yes Reason for Visit and Comments: Med Refill [[id number]] Normal [facility] PROF 14(COMP METB)on 022 Albumin [Mass/Vol] 3.8 g/dL Normal 3.4-5.0 [facility] Comment on above: Performed By: #### C MREP #### [facility] [address] [place] [address] Dr. Erasmo Smith Albumin/Globulin [Mass ratio] 0.8 {ratio} Normal [facility] Comment on above: Performed By: #### C MREP #### [facility] [address] [place] [address] Dr. Erasmo Smith ALP [Catalytic activity/Vol] 102 U/L Normal 46-116 [facility] Comment on above: Performed By: #### C MREP #### [facility] [address] [address] [address] Erasmo Smith ALT [Catalytic activity/Vol] 47 U/L Normal 14-59 [facility] Comment on above: Performed By: #### C MREP #### [facility] [address] [place] [address] Dr. Erasmo Smith Anion gap [Moles/Vol] 12.5 mmol/L Normal [facility] Comment on above: Performed By: #### C MREP #### [facility] [address] [address] [address] Erasmo Smith AST [Catalytic activity/Vol] 36 U/L Normal 15-37 [facility] Comment on above: Performed By: #### C MREP #### [facility] [address] [address] [address] Erasmo Smith Bilirubin [Mass/Vol] 0.3 mg/dL Normal 0.2-1.0 [facility] Comment on above: Performed By: #### C MREP #### [facility] [address] [address] [address] Erasmo Smith Calcium [Mass/Vol] 8.9 mg/dL Normal 8.5-10.1 [facility] Comment on above: Performed By: #### C MREP #### [facility] [address] [place] [address] Dr. Erasmo Smith Chloride [Moles/Vol] 106 mmol/L Normal 98-107 [facility] Comment on above: Performed By: #### C MREP #### [facility] [address] [address] [address] Erasmo Smith CO2 [Moles/Vol] 26.9 mmol/L Normal 21.0-32.0 [facility] Comment on above: Performed By: #### C MREP #### [facility] [address] [address] [address] Erasmo Smith Creatinine [Mass/Vol] 0.79 mg/dL Normal 0.55-1.02 [facility] Comment on above: Performed By: #### C MREP #### [facility] [address] [address] [address] Erasmo Smtih EGFR-AF [place] >60 Normal >=60 [facility] Comment on above: Performed By: #### C MREP #### [facility] [address] [address] [address] Erasmo Smith EGFR-NON AF [place] >60 Normal >=60 [facility] Comment on above: Performed By: #### C MREP #### [facility] [address] [address] [address] Erasmo Smith Globulin (S) [Mass/Vol] 4.6 g/dL Normal [facility] Comment on above: Performed By: #### C MREP #### [facility] [address] [place] [address] Dr. Erasmo Smith Glucose [Mass/Vol] 102 mg/dL Normal 74-106 [facility] Comment on above: Performed By: #### C MREP #### [facility] [address] [place] [address] Dr. Erasmo Smith Potassium [Moles/Vol] 4.4 mmol/L Normal 3.5-5.1 [facility] Comment on above: Performed By: #### C MREP #### [facility] [address] [place] [address] Dr. Erasmo Smith Protein [Mass/Vol] 8.4 g/dL Critically high 6.4-8.2 [facility] Comment on above: Performed By: #### C MREP #### [facility] [address] [place] [address] Dr. Erasmo Smith Sodium [Moles/Vol] 141 mmol/L Normal 136-145 [facility] Comment on above: Performed By: #### C MREP #### [facility] [address] [place] [address] Dr. Erasmo Smith Urea nitrogen [Mass/Vol] 28.0 mg/dL Critically high 7.0-18.0 [facility] Comment on above: Performed By: #### C MREP #### [facility] [address] [place] [address] Dr. Erasmo Smith Urea nitrogen/Creatinine [Mass ratio] 35.4 mg/mg Normal [facility] Comment on above: Performed By: #### C MREP #### [facility] [address] [place] [address] Dr. Erasmo Smith CBC AUTO DIFFon 07-12-2022 BASO # 0.1 103/ul Normal 0.0-0.1 [facility] Comment on above: Performed By: #### B CUSTOMER CARE SPECIALIST #### [facility] [address] [address] [address] Erasmo Smith Basophils/100 WBC (Bld) 0.5 % Normal 0.2-2.0 [facility] Comment on above: Performed By: #### B CUSTOMER CARE SPECIALIST #### [facility] [address] [address] [address] Erasmo Smith EO # 0.2 103/ul Normal 0.0-0.7 [facility] Comment on above: Performed By: #### B CUSTOMER CARE SPECIALIST #### [facility] [address] [place] [address] Dr. Erasmo Smith Eosinophils/100 WBC (Bld) 2.5 % Normal 0.9-7.0 [facility] Comment on above: Performed By: #### B CUSTOMER CARE SPECIALIST #### [facility] [address] [place] [address] Dr. Erasmo Smith Erythrocyte distribution width (RBC) [Ratio] 17.2 % Critically high 11.0-15.0 [facility] Comment on above: Performed By: #### B CUSTOMER CARE SPECIALIST #### [facility] [address] [place] [address] Dr. Erasmo Smith Hematocrit (Bld) [Volume fraction] 35.0 % Critically low 36.0-48.0 [facility] Comment on above: Performed By: #### B CUSTOMER CARE SPECIALIST #### [facility] [address] [place] [address] Dr. Erasmo Smith Hemoglobin (Bld) [Mass/Vol] 11.3 g/dL Critically low 12.0-16.0 [facility] Comment on above: Performed By: #### B CUSTOMER CARE SPECIALIST #### [facility] [address] [place] [address] Dr. Erasmo Smith IG # 0.02 10e3/ul Normal 0.00-0.03 [facility] Comment on above: Performed By: #### B CUSTOMER CARE SPECIALIST #### [facility] [address] [place] [address] Dr. Erasmo Smith IG % 0.2 % Normal 0.0-0.5 [facility] Comment on above: Performed By: #### B CUSTOMER CARE SPECIALIST #### [facility] [address] [place] [address] Dr. Erasmo Smith LYMPH # 2.3 103/ul Normal 1.2-3.8 [facility] Comment on above: Performed By: #### B CUSTOMER CARE SPECIALIST #### [facility] [address] [place] [address] Dr. Erasmo Smith Lymphocytes/100 WBC (Bld) 25.4 % Normal 20.5-60.0 [facility] Comment on above: Performed By: #### B CUSTOMER CARE SPECIALIST #### [facility] [address] [place] [address] Dr. Erasmo Smith MANUAL DIFF REQ NO Normal [facility] Comment on above: Performed By: #### B CUSTOMER CARE SPECIALIST #### [facility] [address] [place] [address] Dr. Erasmo Smith MCH (RBC) [Entitic mass] 25.5 pg Critically low 26.7-34.0 [facility] Comment on above: Performed By: #### B CUSTOMER CARE SPECIALIST #### [facility] [address] [place] [address] Dr. Erasmo Smith MCHC (RBC) [Mass/Vol] 32.3 g/dL Normal 29.9-35.2 [facility] Comment on above: Performed By: #### B CUSTOMER CARE SPECIALIST #### [facility] [address] [place] [address] Dr. Erasmo Smith MCV (RBC) [Entitic vol] 78.8 fL Critically low 81.0-99.0 [facility] Comment on above: Performed By: #### B CUSTOMER CARE SPECIALIST #### [facility] [address] [place] [address] Dr. Erasmo Smith MONO # 0.7 103/ul Normal 0.3-0.8 [facility] Comment on above: Performed By: #### B CUSTOMER CARE SPECIALIST #### [facility] [address] [place] [address] Dr. Erasmo Smith Monocytes/100 WBC (Bld) 7.5 % Normal 1.7-12.0 [facility] Comment on above: Performed By: #### B CUSTOMER CARE SPECIALIST #### [facility] [address] [place] [address] Dr. Erasmo Smith NEUT # 5.9 103/ul Normal 1.4-6.5 [facility] Comment on above: Performed By: #### B CUSTOMER CARE SPECIALIST #### [facility] [address] [place] [address] Dr. Erasmo Smith Neutrophils/100 WBC (Bld) 63.9 % Normal 43.0-75.0 [facility] Comment on above: Performed By: #### B CUSTOMER CARE SPECIALIST #### [facility] [address] [place] [address] Dr. Erasmo Smith Platelet mean volume (Bld) [Entitic vol] 9.0 fL Critically low 9.5-13.5 [facility] Comment on above: Performed By: #### B CUSTOMER CARE SPECIALIST #### [facility] [address] [place] [address] Dr. Erasmo Smith PLT 305 103/ul Normal 150-450 [facility] Comment on above: Performed By: #### B CUSTOMER CARE SPECIALIST #### [facility] [address] [place] [address] Dr. Erasmo Smith RBC 4.44 106/ul Normal 4.20-5.40 [facility] Comment on above: Performed By: #### B CUSTOMER CARE SPECIALIST #### [facility] [address] [place] [address] Dr. Erasmo Smith WBC 9.2 103/ul Normal 4.0-11.0 [facility] Comment on above: Performed By: #### B CUSTOMER CARE SPECIALIST #### [facility] [address] [place] [address] CHEST WO CONon [...] by: PAULA DELGADO Date: 2022-05-27 15:27 Normal [facility] HEMOGLOBINon 04-20-2022 Hemoglobin (Bld) [Mass/Vol] 10.6 g/dL Critically low 12.0-16.0 [facility] Comment on above: Performed By: #### H GB ####[facility] [id number] [address]Dr. Erasmo Smith CULTURE SPUTUMon 04-02-2022 CULTURE SPUTUM Isolate 1 Pseudomonas aeruginosa Light growth of ORGANISM 1 Pseudomonas aeruginosa ANTIBIOTIC M.I.C RX STATUS Piperacillin/Tazobac saez 8 S F Ceftazidime 2 S F Imipenem 1 S F Amikacin <=2 S F Gentamicin <=1 S F Tobramycin <=1 S F Ciprofloxacin <=0.25 S F Levofloxacin 0.25 S F Normal [facility] Comment on above: Performed By: #### S PUTCX ####[facility] [id number] [address]Dr. Erasmo Smith CYTOLOGYon 03-30-2022 SENT TO REF LAB 03/31/22 Normal [facility] Comment on above: Performed By: #### C YTO #### [facility] [address] [address] [address] Erasmo Smith SPUTUM GRAM STAINon 03-30-20 COMMENTS Normal [facility] Comment on above: Performed By: #### B CUSTOMER CARE SPECIALIST #### [facility] [address] [address] [address] Erasmo Smith DIPHTHEROIDS Normal [facility] Comment on above: Performed By: #### B CUSTOMER CARE SPECIALIST #### [facility] [address] [address] [address] Erasmo Smith EPITHELIALS <25 Normal [facility] Comment on above: Performed By: #### B CUSTOMER CARE SPECIALIST #### [facility] [address] [address] [address] Erasmo Smith FUNGAL ELEMENTS Normal [facility] Comment on above: Performed By: #### B CUSTOMER CARE SPECIALIST #### [facility] [address] [address] [address] Erasmo Smith GRAM NEG BACILLI FEW Normal [facility] Comment on above: Performed By: #### B CUSTOMER CARE SPECIALIST #### [facility] [address] [address] [address] Erasmo CINTRON NEG DIPPLOCOCCI Normal [facility] Comment on above: Performed By: #### B CUSTOMER CARE SPECIALIST #### [facility] [address] [address] [address] Erasmo Smith GRAM POS BACILLI Normal [facility] Comment on above: Performed By: #### B CUSTOMER CARE SPECIALIST #### [facility] [address] [address] [address] Erasmo Smith GRAM POSITIVE COCCI MANY Normal [facility] Comment on above: Performed By: #### B CUSTOMER CARE SPECIALIST #### [facility] [address] [address] [address] Erasmo Smith WBC (Bld) [#/Vol] 10*3/uL Normal [facility] Comment on above: Performed By: #### B CUSTOMER CARE SPECIALIST #### [facility] [address] [address] [address] Erasmo Smith SPUTUM CULTUREon 03-01-2022 Epithelial cells LM Ql (Urine sed) Few Normal [facility] Comment on above: Performed By: #### C XSPTUM ####[facility] [id number] [address]Dr. Erasmo Smith Gram Stain Evaluation Comment Normal [facility] Comment on above: Result Comment: This specimen is of good quality and is acceptable for routine bacterial culture. Performed By: #### C XSPTUM ####[facility] [id number] [address]Dr. Erasmo Smith Lower Respiratory Culture Final report Normal [facility] Comment on above: Performed By: #### C XSPTUM ####[facility] [id number] [address]Dr. Erasmo Smith Result 1 Comment Normal [facility] Comment on above: Result Comment: Few gram positive cocci Performed By: #### C XSPTUM ####[facility] [id number] [address]Dr. Erasom Smith Result Comment: Rout ine respiratory adria Result 2 Normal [facility] Comment on above: Performed By: #### C XSPTUM ####[facility] [id number] [address]Dr. Erasmo Smith Result 3 Normal [facility] Comment on above: Performed By: #### C XSPTUM ####[facility] [id number] [address]Dr. Erasmo Smith Result 4 Normal [facility] Comment on above: Performed By: #### C XSPTUM ####[facility] [id number] [address]Dr. Erasmo Smith White Blood Cells Few Normal [facility] Comment on above: Performed By: #### C XSPTUM ####[facility] [id number] [address]Dr. Erasmo Smith BNPon 02-24-2022 Natriuretic peptide B (Bld) [Mass/Vol] 319.0 pg/mL Normal <=900.0 [facility] Comment on above: Performed By: #### B CUSTOMER CARE SPECIALIST #### [facility] [address] [address] [address] Erasmo Smith CBC AUTO DIFFon 02-24-2022 BASO # 0.1 103/ul Normal 0.0-0.1 [facility] Comment on above: Performed By: #### C MREP #### [facility] [address] [address] [address] Erasmo Smith Basophils/100 WBC (Bld) 0.5 % Normal 0.2-2.0 [facility] Comment on above: Performed By: #### C MREP #### [facility] [address] [place] [address] Dr. Erasmo Smith EO # 0.3 103/ul Normal 0.0-0.7 [facility] Comment on above: Performed By: #### C MREP #### [facility] [address] [place] [address] Dr. Erasmo Smith Eosinophils/100 WBC (Bld) 3.1 % Normal 0.9-7.0 [facility] Comment on above: Performed By: #### C MREP #### [facility] [address] [place] [address] Dr. Erasmo Smith Erythrocyte distribution width (RBC) [Ratio] 15.1 % Critically high 11.0-15.0 [facility] Comment on above: Performed By: #### C MREP #### [facility] [address] [place] [address] Dr. Erasmo Smith Hematocrit (Bld) [Volume fraction] 33.9 % Critically low 36.0-48.0 [facility] Comment on above: Performed By: #### C MREP #### [facility] [address] [place] [address] Dr. Erasmo Smith Hemoglobin (Bld) [Mass/Vol] 10.7 g/dL Critically low 12.0-16.0 [facility] Comment on above: Performed By: #### C MREP #### [facility] [address] [place] [address] Dr. Erasmo Smith IG # 0.03 10e3/ul Normal 0.00-0.03 [facility] Comment on above: Performed By: #### C MREP #### [facility] [address] [place] [address] Dr. Erasmo Smith IG % 0.3 % Normal 0.0-0.5 [facility] Comment on above: Performed By: #### C MREP #### [facility] [address] [place] [address] Dr. Erasmo Smith LYMPH # 2.8 103/ul Normal 1.2-3.8 [facility] Comment on above: Performed By: #### C MREP #### [facility] [address] [address] [address] Erasmo Smith Lymphocytes/100 WBC (Bld) 30.6 % Normal 20.5-60.0 [facility] Comment on above: Performed By: #### C MREP #### [facility] [address] [address] [address] Erasmo Smith MANUAL DIFF REQ NO Normal [facility] Comment on above: Performed By: #### C MREP #### [facility] [address] [place] [address] Dr. Erasmo Smith MCH (RBC) [Entitic mass] 26.9 pg Normal 26.7-34.0 [facility] Comment on above: Performed By: #### C MREP #### [facility] [address] [place] [address] Dr. Erasmo Smith MCHC (RBC) [Mass/Vol] 31.6 g/dL Normal 29.9-35.2 [facility] Comment on above: Performed By: #### C MREP #### [facility] [address] [place] [address] Dr. Erasmo Smith MCV (RBC) [Entitic vol] 85.2 fL Normal 81.0-99.0 [facility] Comment on above: Performed By: #### C MREP #### [facility] [address] [place] [address] Dr. Erasmo Smith MONO # 0.7 103/ul Normal 0.3-0.8 [facility] Comment on above: Performed By: #### C MREP #### [facility] [address] [place] [address] Dr. Erasmo Smith Monocytes/100 WBC (Bld) 7.9 % Normal 1.7-12.0 [facility] Comment on above: Performed By: #### C MREP #### [facility] [address] [place] [address] Dr. Erasmo Smith NEUT # 5.3 103/ul Normal 1.4-6.5 [facility] Comment on above: Performed By: #### C MREP #### [facility] [address] [address] [address] Erasmo Smith Neutrophils/100 WBC (Bld) 57.6 % Normal 43.0-75.0 [facility] Comment on above: Performed By: #### C MREP #### [facility] [address] [address] [address] Erasmo Smith Platelet mean volume (Bld) [Entitic vol] 9.0 fL Critically low 9.5-13.5 [facility] Comment on above: Performed By: #### C MREP #### [facility] [address] [address] [address] Erasmo Smith PLT 249 103/ul Normal 150-450 [facility] Comment on above: Performed By: #### C MREP #### [facility] [address] [place] [address] Dr. Erasmo Smith RBC 3.98 106/ul Critically low 4.20-5.40 [facility] Comment on above: Performed By: #### C MREP #### [facility] [address] [address] [address] Erasmo Smith WBC 9.1 103/ul Normal 4.0-11.0 [facility] Comment on above: Performed By: #### C MREP #### [facility] [address] [place] [address] Dr. Erasmo Smith CTA CHEST WO W [...] PAULA DELGADO Date: 2022-02-24 18:24 Normal [facility] D-DIMERon 02-24-2022 D-DIMER 1.36 mg/L FEU Critically high <=0.59 [facility] Comment on above: Performed By: #### D DIM #### [facility] [address] [address] [address] Erasmo Smith D-DIMER COMMENTS SEE BELOW Normal [facility] Comment on above: Result Comment: Incr eases [...] hospitalization. Performed By: #### D DIM #### [facility] [address] [address] [address] Erasmo Smith PROF 14(COMP METB)on 022 Albumin [Mass/Vol] 3.6 g/dL Normal 3.4-5.0 [facility] Comment on above: Performed By: #### C MREP #### [facility] [address] [address] [address] Erasmo Smith Albumin/Globulin [Mass ratio] 0.8 {ratio} Normal [facility] Comment on above: Performed By: #### C MREP #### [facility] [address] [address] [address] Erasmo Smith ALP [Catalytic activity/Vol] 95 U/L Normal 46-116 [facility] Comment on above: Performed By: #### C MREP #### [facility] [address] [address] [address] Erasmo Smith ALT [Catalytic activity/Vol] 45 U/L Normal 14-59 [facility] Comment on above: Performed By: #### C MREP #### [facility] [address] [place] [address] Dr. Erasmo Smith Anion gap [Moles/Vol] 15.9 mmol/L Normal [facility] Comment on above: Performed By: #### C MREP #### [facility] [address] [place] [address] Dr. Erasmo Smith AST [Catalytic activity/Vol] 33 U/L Normal 15-37 [facility] Comment on above: Performed By: #### C MREP #### [facility] [address] [place] [address] Dr. Erasmo Smith Bilirubin [Mass/Vol] 0.5 mg/dL Normal 0.2-1.0 [facility] Comment on above: Performed By: #### C MREP #### [facility] [address] [place] [address] Dr. Erasmo Smith Calcium [Mass/Vol] 9.1 mg/dL Normal 8.5-10.1 [facility] Comment on above: Performed By: #### C MREP #### [facility] [address] [place] [address] Dr. Erasmo Smith Chloride [Moles/Vol] 103 mmol/L Normal 98-107 [facility] Comment on above: Performed By: #### C MREP #### [facility] [address] [place] [address] Dr. Erasmo Smith CO2 [Moles/Vol] 25.1 mmol/L Normal 21.0-32.0 [facility] Comment on above: Performed By: #### C MREP #### [facility] [address] [place], [place] [address] Dr. Erasmo Smith Creatinine [Mass/Vol] 0.77 mg/dL Normal 0.55-1.02 [facility] Comment on above: Performed By: #### C MREP #### [facility] [address] [place] [address] Dr. Erasmo Smith EGFR-AF [place] >60 Normal >=60 [facility] Comment on above: Performed By: #### C MREP #### [facility] [address] [place] [address] Dr. Erasmo Smith EGFR-NON AF [place] >60 Normal >=60 [facility] Comment on above: Performed By: #### C MREP #### [facility] [address] [place] [address] Dr. Erasmo Smith Globulin (S) [Mass/Vol] 4.3 g/dL Normal [facility] Comment on above: Performed By: #### C MREP #### [facility] [address] [place] [address] Dr. Erasmo Smith Glucose [Mass/Vol] 92 mg/dL Normal 74-106 [facility] Comment on above: Performed By: #### C MREP #### [facility] [address] [place] [address] Dr. Erasmo Smith Potassium [Moles/Vol] 4.0 mmol/L Normal 3.5-5.1 [facility] Comment on above: Performed By: #### C MREP #### [facility] [address] [place] [address] Dr. Erasmo Smith Protein [Mass/Vol] 7.9 g/dL Normal 6.4-8.2 [facility] Comment on above: Performed By: #### C MREP #### [facility] [address] [place] [address] Dr. Erasmo Smith Sodium [Moles/Vol] 140 mmol/L Normal 136-145 [facility] Comment on above: Performed By: #### C MREP #### [facility] [address] [place] [address] Dr. Erasmo Smith Urea nitrogen [Mass/Vol] 17.0 mg/dL Normal 7.0-18.0 [facility] Comment on above: Performed By: #### C MREP #### [facility] [address] [address] [address] Erasmo Smith Urea nitrogen/Creatinine [Mass ratio] 22.1 mg/mg Normal [facility] Comment on above: Performed By: #### C MREP #### [facility] [address] [address] [address] Erasmo Smith PROTIMEon 02-24-2022 INR Coag (PPP) [Relative time] 2.28 {INR} Normal [facility] Comment on above: Performed By: #### P T, PTT ####[facility] [id number] [address]Dr. Erasmo Smith INR GUIDELINES SEE BELOW Normal [facility] Comment on above: Result Comment: ABNER RED INR: 2.0 - 3.0 CONDITIONS NOT LISTED BELOW 2.5 - 3.5 FOR PROSTHETIC HEART VALVE REPLACEMENT 2.5 - 3.5 RECURRENT THROMBOSIS Performed By: #### P T, PTT ####[facility] [id number] [address]Dr. Erasmo Smith PT Coag (PPP) [Time] 23.3 s Critically high 9.0-11.6 [facility] Comment on above: Performed By: #### P T, PTT ####[facility] [id number] Erasmo Smith PTTon 02-24-2022 aPTT Coag (Bld) [Time] 34.7 s Normal 22.3-36.2 [facility] Comment on above: Performed By: #### P T, PTT ####[facility] [id number] [address]Dr. Erasmo Smith TROPONIN, HIGH SENSITIVITYon 02-24-2022 HSTROP 6.6 pg/mL Normal 4.0-51.3 [facility] Comment on above: Result Comment: CUT- OFF POINTS HAVE BEEN ESTABLISHED BASED ON THE FOURTH UNIVERSAL DEFINITIONS OF MYOCARDIAL INFARCTION. THE UPPER REFERENCE LIMIT (URL) OF TROPONIN, DEFINED THE 99TH PERCENTILE OF cTnI DISTRIBUTION IN A REFERENCE POPULATION, HAS BEEN CONFIRMED THE DECISION THRESHOLD FOR CT DIAGNOSIS. Performed By: #### C MREP #### [facility] [address] [place], [place] [address] Dr. Erasmo Smith PROTHROMBIN TIMEon INR Coag (PPP) [Relative time] 1.2 {INR} High 0.86-1.16 [facility] Comment on above: Result Comment: INR Theraputic Range: 2.0-3.5 [place]formed [place] [facility] [place] [id number] [facility] [id number] PT Coag (PPP) [Time] 12.7 s Normal 9.3-12.7 [facility] ANTICOAGULANT COUMADIN Normal [facility] Vital Signs Date Time Vital Sign Value Performing Clinician Sophie echols 10-07-2021 16:00-0500 Body height 146.69 cm Hong Nevarez Other [facility] Other 10-07-2021 16:00-0500 Body mass index (BMI) [Ratio] 51.01 kg/m2 Hong Geri Other [facility] Other 10-07-2021 16:00-0500 Body weight 109.77 kg Hong Tonydevon Other [facility] Other 08-26-2021 15:15-0500 Body height 146.69 cm Hong Nevarez Other [facility] Other 08-26-2021 15:15-0500 Body mass index (BMI) [Ratio] 51.07 kg/m2 Hong Geri Other [facility] Other 08-26-2021 15:15-0500 Body weight 109.91 kg Hong Geri Other [facility] Other Encounters Encounter Date Encounter Type Care Provider Facility Start: 11-16-2023 End: 11-16-2023 ambulatory Shaikh Cira Facility:[facility] Start: 10-17-2023 Cristobal Denis MD Work Phone: [facility] Start: 10-17-2023 Cristobal Denis MD Work Phone: [facility] Start: 10-17-2023 End: 10-17-2023 ambulatory SHAIKH CIRA Not Available Start: 10-11-2023 End: 10-11-2023 ambulatory MD Shaikh Denis Work Phone: [facility] Work Phone: Start: 10-11-2023 End: 10-11-2023 Patient encounter procedure MD Shaikh Denis Work Phone: [facility]-MRI [place] Work Phone: Start: 09-08-2023 End: 09-08-2023 ambulatory Claire Clement Facility:[facility] Start: 09-08-2023 End: 09-08-2023 ambulatory MD Shaikh Denis Work Phone: [facility] Work Phone: Start: 09-08-2023 End: 09-08-2023 Patient encounter procedure MD Shaikh Denis Work Phone: [facility]-Pacemaker Check Start: 09-06-2023 End: 09-06-2023 ambulatory SHAIKH CIRA Not Available Start: 09-06-2023 Patient encounter procedure Shaikh Cira CUBA Work Phone: [facility] Start: 07-08-2023 End: 07-08-2023 ambulatory [facility] Start: 07-05-2023 End: 07-05-2023 ambulatory [facility] Start: 04-11-2023 End: 04-12-2023 ambulatory Miguel Murphy MD Facility:[facility] Start: 03-01-2023 End: 03-01-2023 ambulatory [facility] Start: 01-31-2023 End: 02-01-2023 ambulatory ANDRIUS GIEDRAITIS Facility:[facility] Start: 01-28-2023 End: 01-29-2023 ambulatory ANDRIUS GIEDRAITIS Facility:[facility] Start: 01-11-2023 End: 01-12-2023 ambulatory Barbara Esposito Facility: [facility] Start: 01-10-2023 End: 02-09-2023 ambulatory SHAIKH Kymberly DENIS Facility:[facility] Start: 12-28-2022 End: 12-28-2022 ambulatory [facility] Start: 12-16-2022 End: 12-17-[address] DOCTOR KENNEDY Facility:[facility] Start: 12-13-2022 End: 01-07-[address] LUISANA FISHER . Facility:[facility] Start: 12-08-2022 End: 12-08-2022 ambulatory [facility] Start: 2022 End: 12-03-2022 Evaluation and management of inpatient KAYLEY RIVER . Facility:[facility] Start: 11-29-2022 ambulatory Barbara Esposito Facility: [facility]ah [facility] Darrell Start: 11-26-2022 End: 11-27-[address] LUISANA FISHER . Facility:[facility] Start: 11-10-2022 End: 11-10-2022 [facility] Start: 11-10-2022 End: 12-10-2022 ambulatory SHAIKH Kymberly DENIS Facility:[facility] Start: 10-13-2022 End: 11-10-2022 ambulatory SHAIKH Kymberly DNEIS Facility:[facility] Start: 09-13-2022 End: 10-13-[address] LUISANA FISHER . Facility:[facility] Start: 08-12-2022 End: 09-12-[address] LUISANA FISHER . Facility:[facility] Start: 07-13-2022 End: 07-14-2022 ambulatory LUIZ QUEEN . Facility:[facility] Start: 07-13-2022 End: 07-14-[address] LUISANA FISHER . Facility:[facility] Start: 07-13-2022 End: 08-11-2022 ambulatory SHAIKH Kymberly DENIS Facility:[facility] Start: 07-12-2022 End: 07-13-[address] LUISANA FISHER . Facility:[facility] Start: 06-13-2022 End: 07-12-2022 ambulatory Kymberly CIRA Facility:[facility] Start: 05-27-2022 End: 05-28-2022 ambulatory LUIZ HERNANEDZ . Facility:[facility] Start: 05-19-2022 End: 05-20-2022 ambulatory LUIZNAYELI HERNANDEZ . Facility:[facility] Start: 05-13-2022 End: 06-12-2022 ambulatory SAHU Kymberly CIRA Facility:[facility] Start: 04-20-2022 End: 04-21-2022 ambulatory LUIZ HERNANDEZ . Facility:[facility] Start: 04-12-2022 End: 05-12-2022 ambulatory SHAIKH Kymberly DENIS Facility:[facility] Start: 03-30-2022 End: 03-30-[address] LUISANA FISHER . Facility:[facility] Start: 03-12-2022 End: 04-09-2022 ambulatory SHAIKH Kymberly DENIS Facility:[facility] Start: 02-25-2022 End: 02-25-[address] LUISANA FISHER . Facility:[facility] Start: 02-24-2022 End: 02-25-[address] LUISANA FISHER . Facility:[facility] Start: 10-07-2021 End: 10-07-2021 ambulatory Hong Nevarez Other [facility] Other Start: 10-07-2021 Office outpatient visit 15 minutes Hong Nevarez [facility] Start: 08-26-2021 End: 08-26-2021 ambulatory Hong Nevarez Other [facility] Other Start: 08-26-2021 Office outpatient ne w 45 minutes Hong Nevarez [facility] Start: 10-11-2020 End: 10-13-2020 Evaluation and management of inpatient ZANE MAYNOR Facility:[facility] Procedures Date Procedure Procedure Detail Performing Clinician Start: 10-11-2023 XR pre/post mri xray MD Shaikh Denis Work Phone: Start: 10-11-2023 MR lumbar spine wo con MD Shaikh Denis Work Phone: Start: 03-01-2023 Follow-up visit Follow-up YANCY PERALES ACKO Start: 10-13-2020 INSERT PACE. DUAL CH AM IN CHEST SUBCU/FASCIA, OPEN YANCY MAHAN Start: 10-13-2020 INSERTION OF PACEMAK ER LEAD INTO R VENTRICLE, PERC APPROACH YANCY MINOO Start: 10-13-2020 INSERTION OF PACEMAK ER LEAD [...] Visit [facility] [address] [place] [id number] Shaikh Denis MD [address] [place] [phone] [facility] Start: 10-17-2023 End: 10-17-2023 Patient encounter procedure 10/17/2023 10:15 AM EST Office Visit [facility] [address] [place] [address] Shaikh Denis MD [address] [place] [phone] Arrived [facility] Comment on above: Arrived Start: 1945 Screening for malign ant neoplasm of colon [facility] Payers Date Payer Category Payer Private Health Insurance [id number] 2023 Self-pay [id number] 2023 Managed Care HMO (unspecified) OSEI FRANZ [id number] 2023-Present [address] [place] [address] O [id number] 2022 Private Health Insurance 2007 Medicare 1959 Medicare [id number] 1959 Private Health Insurance [facility] [id number] 1945 Unknown [id number] 2.16.840.1.143043.3.579.2. 647 1945 Unknown [id number] 2.16.840.1.540580.3.579.2. 727 1945 Unknown [id number] 2.16.840.1.514251.3.579.2. 593 1945 Unknown [id number] 2.16.840.1.410472.3.579.2. 593 1947 Unknown [id number] 2.16.840.1.006725.3.579.2. 593 1947 Unknown [id number] 2.16.840.1.494612.3.579.2. 593 1947 Unknown [id number] 2.16.840.1.200447.3.579.2. 593 1947 Unknown [id number] 2.16.840.1.248550.3.579.2. 593 1947 Unknown [id number] 2.16.840.1.234716.3.579.2. 593 1947 Unknown [id number] 2.16.840.1.243521.3.579.2. 593 1947 Unknown [id number] 2.16.840.1.973002.3.579.2. 593 1947 Unknown [id number] 2.16.840.1.257022.3.579.2. 593 1947 Unknown [id number] 2.16.840.1.762646.3.579.2. 593 1947 Unknown [id number] 2.16.840.1.344676.3.579.2. 593 1947 Unknown [id number] 2.16.840.1.400625.3.579.2. 593 1947 Unknown [id number] 2.16.840.1.913042.3.579.2. 593 1947 Unknown [id number] 2.16.840.1.748361.3.579.2. 593 1947 Unknown [id number] 2.16.840.1.929777.3.579.2. 593 1947 Unknown [id number] 2.16.840.1.668606.3.579.2. 593 1947 Unknown [id number] 2.16.840.1.641191.3.579.2. 593 1947 Unknown [id number] 2.16.840.1.553067.3.579.2. 593 1947 Unknown [id number] 2.16.840.1.327499.3.579.2. 593 1947 Unknown [id number] 2.16.840.1.206652.3.579.2. 593 1947 Unknown [id number] 2.16.840.1.971926.3.579.2. 593 1947 Unknown [id number] 2.16.840.1.576704.3.579.2. 593 1947 Unknown [id number] 2.16.840.1.296796.3.579.2. 593 1947 Unknown [id number] 2.16.840.1.454304.3.579.2. 593 1947 Unknown [id number] 2.16.840.1.541015.3.579.2. 593 1947 Unknown [id number] 2.16.840.1.358972.3.579.2. 196 1945 Unknown [id number] 2.16.840.1.120091.3.579.2. 196 1947 Unknown [id number] 2.16.840.1.110060.3.579.2. 1259 1947 Unknown [id number] 2.16.840.1.418958.3.579.2. 1259 Medicare Medicare Outpatient [id number] 1A [id number] Unknown [place] [id number] Unknown [id number] 2.16.840.1.444357.3.579.2. 531 Unknown [id number] 2.16840.1.939313.3.579.2. 531 Unknown [id number] 2.16840.1.517709.3.579.2. 531 Social History Date Type Detail Facility Start: 08-30-2023 End: 09-06-2023 Sex Assigned At [facility] Start: 1945 Sex Assigned At Female F [facility] Start: 08-18-2023 Tobacco smoking stat us [facility] Ex-smoker [facility] History of tobacco use Current smoker [facility] History of tobacco use Cigarette Smoker [facility] Start: 09-02-2023 Alcohol intake Not Asked [facility] Start: 08-30-2023 End: 09-06-2023 History of Social function [facility] Within the last year , have you been afraid of your partner or ex-partner? No [facility] How often do you att end mandaeism or taoist services? Patient refused [facility] Do you belong to any clubs or organizations such as mandaeism groups, unions, fraternal or athletic groups, or [...] Start: 08-18-2023 Alcohol Comment (Audit-C) : Negative [facility] Start: 1945 Sex Assigned At Not on file N [facility] Clinical Notes 08-26-2021 to 07-05-2023 Note Date & Type Note Facility 07-05-2023 Note [facility] Electrophysiology Consult Note Reason for visit: Afib. [...] sick sinus syndrome s/p PPM 10/2020 dual-chamber [employer], COPD, mild CAD s/p cardiac cath [...] could not afford DOAC. Patient underwent dual-chamber [employer] pacemaker placement on 10/13/2020. On subsequent [...] both knees Hypocalcemi (more content not included)... [facility] 03-01-2023 Note AL Electrophysiology Consult Note Reason for visit: 6-month [...] sick sinus syndrome s/p PPM 10/2020 dual-chamber [employer], COPD, mild CAD s/p cardiac cath [...] could not afford DOAC. Patient underwent dual-chamber [employer] pacemaker placement on 10/13/2020. On subsequent [...] KNEE ARTHROPLASTY Bi (more content not included)... [facility] 12-13-2022 Note [id number] #1.00CD:127 [facility] 12-08-2022 Note Cardiology Clinic No te Subjective Breann Starks is a 77 y.o. year old female patient with past medical history of paroxysmal supraventricular tachycardia status post ablation x3 2005, atrial fibrillation on warfarin and flecainide, sick sinus syndrome status post pacemaker, hypertension, COPD, coronary angiography in 2010 which showed mild CAD, seen in posthospitalization follow-up from [facility]. She was seen by cardiology in consultation [...] dysfunction. Left atri (more content not included)... [facility] 11-18-2022 Note Obesity is slightly improving -She was to 255 pounds last visit and today she is 241 pounds -Advised to continue working on weight loss and lifestyle changes [facility] 11-18-2022 Note - S/p PPM [employer] -We will have her scheduled for device check [facility] 11-18-2022 Note -device check in may <1% AF, had 1 mode switch which lasted 6 seconds -will have her get device check to assess AF burden -[id number] 3 -Continue Xarelto 20 mg daily, continue propafenone to 25 mg 3 times a day [facility] 11-18-2022 Note Hypertension is stab le -ct medications: aldactone, verapamil, lasix 20mg -managed per PCP [facility] 11-18-2022 Note Coronary artery dise ase is stable -no CP or LEA -last cath 2010, mild disease no PCI / stent -continue medications [facility] 11-10-2022 Note Patient is here toda y for a 6 month follow up Review of Systems Constitutional: Positive for weight loss. Cardiovascular: Positive for palpitations. All other systems reviewed and are negative. [facility] 11-10-2022 Note AL Electrophysiology Consult Note Reason for visit: 6-month follow-up HPI: Breann Starks is a 76 y.o. year old with past medical history of A-fib, atrial tachycardia s/p ablation 2005, sick sinus syndrome s/p PPM 10/2020 dual-chamber [employer], COPD, mild CAD s/p cardiac cath [...] could not afford DOAC. Patient underwent dual-chamber [employer] pacemaker placement on 10/13/2020. On subsequent [...] Not on f (more content not included)... [facility] 10-07-2021 Evaluation note Encounter Date Diagnosis Assessment Notes Sep, LOJA (nonalcoholic steatohepatitis ) (ICD-10 - K75.81) OBTAIN FIBROSURE RESULTS FROM [facility] ON RESULTS PT ENCOURAGED WEIGHT LOSS RTO ONE YEAR WITH LABS ANNUALLY Sep, Unspecified cirrhosis of liver (ICD-10 - K74.60) [facility] Other 12-15-2021 Evaluation note* Encounter Date Diagnosis Assessment Notes Treatment Notes Treatment Clinical Notes Aug, Nonalcoholic steatohepatitis (LOJA) (ICD-10 - K75.81) RTO 6-8 WEEKS Aug, Unspecified cirrhosi s of liver (ICD-10 - K74.60) Aug, Morbid obesity (ICD- 10 - E66.01) [facility] Other Evaluation noteNo assessment information available [facility] Work Phone: History general Narrative - Reported* [...] Surgical History pacemaker Hospitalization History see above [facility] Other Summary Purpose Family History No Family [...] and content) DATE CREATED AUTHOR 10/23/[address] [facility] DATE CREATED AUTHOR AUTHOR'S ORGANIZ ATION 01/22/2022 [facility] DATE CREATED AUTHOR AUTHOR'S ORGANIZ ATION 01/14/[address] [facility] DATE CREATED AUTHOR AUTHOR'S ORGANIZ ATION 02/18/2023 [facility] DATE CREATED AUTHOR AUTHOR'S ORGANIZ ATION 05/03/2023 [facility] DATE CREATED AUTHOR AUTHOR'S ORGANIZ ATION 07/10/2023 [facility] DATE CREATED AUTHOR AUTHOR'S ORGANIZ ATION 10/17/2023 [facility] EPIC DATE CREATED AUTHOR AUTHOR'S ORGANIZ ATION 11/22/2023 [facility] REASON FOR VISIT (unrecogniz ed section and [...] October 11, 2023 End: October 11, 2023 Supervisor [employer] Relationship Specialty Start Date End Date Shaikh [...] BE BASED ON THE PRIMARY CLINICAL RECORDS. [employer] provides no warranty or guarantee of the accuracy or completeness of information in this document.
--- NOTE | 2023-11-24 12:22 | PM.CN ---
Consult Note: HPI Data of Consult Patient: known to practice within the last 3 years Consult date: 11/24/23 Requesting Physician: Claire Clement NP Primary Care Provider: Shaikh Cira MD Consult Narrative Reason for consult: f/u Narrative: Breann Starks a pleasant 77 year old female presents for evaluation and management of chronic low back pain with radiculopathy and NC. Patient rating pain 7/10 increasing to 10/10 with activity. Numbness tingling weakness to bilateral legs. MRI of lumbar spine consistent with degenerative changes and lumbar stenosis. Patient following with NS who recommended ESIs prior to surgical intervention. Pt has failed PT/HEP greater than 6 weeks and conservative medications. cc:: CC: Claire Clement NP Review of Systems ROS Status of ROS 10 or more systems reviewed and unremarkable except as noted in history and below Musculoskeletal Reports: back pain PFSH PFSH Medical History Fatty liver ?K76.0 - Fatty (change of) liver, not elsewhere classified (ICD-10) History of shingles ?Z86.19 - Personal history of other infectious and parasitic diseases (ICD-10) Osteoarthritis ?M19.90 - Unspecified osteoarthritis, unspecified site (ICD-10) Pacemaker ?Z95.0 - Presence of cardiac pacemaker (ICD-10) Hiatal hernia ?K44.9 - Diaphragmatic hernia without obstruction or gangrene (ICD-10) Low back pain ?M54.50 - Low back pain, unspecified (ICD-10) Irregular heart beat ?I49.9 - Cardiac arrhythmia, unspecified (ICD-10) Surgical History S/P rotator cuff repair ?Z98.890 - Other specified postprocedural states (ICD-10) History of colonoscopy ?Z98.890 - Other specified postprocedural states (ICD-10) S/P YANELI-BSO ?Z90.710 - Acquired absence of both cervix and uterus (ICD-10) ?Z90.722 - Acquired absence of ovaries, bilateral (ICD-10) ?Z90.79 - Acquired absence of other genital organ(s) (ICD-10) H/O cardiac catheterization ?Z98.890 - Other specified postprocedural states (ICD-10) H/O arthroscopy of shoulder ?Z98.890 - Other specified postprocedural states (ICD-10) H/O arthroscopy of knee ?Z98.890 - Other specified postprocedural states (ICD-10) History of appendectomy ?Z90.49 - Acquired absence of other specified parts of digestive tract (ICD-10) History of total knee arthroplasty ?Z96.659 - Presence of unspecified artificial knee joint (ICD-10) Meds Home Medications and Allergies Home Medications Medication Instructions Recorded Confirmed Type cholecalciferol (vitamin D3) 125 5,000 unit PO DAILY 02/16/23 04/11/23 History mcg (5,000 unit) tablet (Vitamin D3) flecainide 100 mg tablet 100 mg PO Q12H 02/16/23 04/11/23 History omeprazole 40 mg capsule,delayed 40 mg PO DAILY 02/16/23 04/11/23 History release spironolactone 25 mg tablet 25 mg PO DAILY 02/16/23 04/11/23 History (Aldactone) verapamil 180 mg tablet,extended 180 mg PO DAILY 02/16/23 04/11/23 History release (Calan SR) apixaban 5 mg tablet (Eliquis) 5 mg PO BID 05/11/23 05/11/23 History Allergies Allergy/AdvReac Type Severity Reaction Status Date / Time No Known Drug Allergies Allergy Verified 04/11/23 08:40 Exam Constitutional Documenting provider has reviewed patient's vital signs: yes Common normals: no apparent distress, oriented x3, healthy appearing, alert and well nourished General appearance: cooperative Nutritional appearance: overweight [facility] Common normals: normocephalic, hearing grossly normal bilaterally and moist oral mucous membranes Head and scalp: normocephalic Eye Common normals: PERRL Pupil: PERRL Neck & C-Spine Common normals: full ROM General: normal visual inspection Chest Common normals: inspection of chest normal Respiratory Common normals: normal respiratory effort, no retractions and no use of accessory muscles Back & Pelvis Common normals: no CVA tenderness, thoracic and lumbar spine normal to inspection, no thoracic nor lumbar tenderness and thoraco-lumbar ROM normal Lumbar spine/lower back: straight leg raise negative bilaterally Sacroiliac joints: SI joints normal Other: intermittent weakness/numbness/tingling BLE Neuro Common normals: oriented x3, CN's II-XII intact bilaterally, moves all extremities, no focal motor deficits, no sensory deficits noted and deep tendon reflexes 2+ bilaterally Sensorium/orientation: alert Speech: speech normal Gait (neuro): normal gait Motor exam: strength 5/5 throughout and no movement abnormalities noted Other: sensation intact BUE BLE Psych Common normals: mental status grossly normal, thought process normal, cooperative, affect normal, speech normal and activity/motor behavior normal Speech: normal speech Thought process: normal thought process Results Additional Findings Additional findings: If on a controlled substance or opioids, I have checked an [place]AR[place] report on this patient and there are no aberrancies noted in the prescribing history.??If on a controlled substance or opioid a drug screen was completed and reviewed within the last year, and if there has not been a drug screen completed we ordered one today to monitor higher risk, state monitored pain medication use. As part of providing excellent, safe, comprehensive care, the following was completed at our patient's visit: 1. A medication reconciliation and review to ensure accurate knowledge of current/active medications, including asking our patients to inform us about any [id number] medications or herbal remedies/nutritional supplements/alternative remedies. 2. A review to specifically ensure our patients have had annual screening for screening for depression, screening for tobacco use, and screening for unhealthy alcohol use. For concerning screenings had a discussion with the patient, provided patient education, and recommended follow-up with primary care provider when appropriate. If patient noted with a risk of falling, they received education on strength, gait, and balance training to prevent future risk of falling. Assessment and Plan Assessment and Plan (1) Lumbar stenosis with neurogenic claudication: (2) Lumbar spondylosis: Plan bilateral L4-5 TFESI followed by bilateral L5-S1 TFESI under fluoroscopy, risks vs benefits discussed continue f/u with NS, trialing gabapentin 300mg BID without benefit f/u 2 weeks after injection
== END 2023-11-24 10:23 | disposition home or self-care (01) ==
LOC: PM 10:22
PROVIDERS: PCP Internal Medicine; Visit Provider Nurse Practitioner
DX: M48.062 Spinal stenosis, lumbar region with neurogenic claudication (principal); M47.816 Spondylosis without myelopathy or radiculopathy, lumbar region
CPT/HCPCS: G0463

== ENCOUNTER 2023-12-05 07:51 | Day surgery (SDC) | payer MEDICARE, SELFPAY ==
--- OUTSIDE RECORDS SUMMARY | 2023-12-05 07:56 | XMS_ITS | CCD ---
Author Organization [facility] Care Team Providers Care Ventilating Engineer Name Role Phone ZANE MCGUIRE Admitting Unavailable YANCY MAHAN Referring Unavailable LUISANA FISHER Primary Care Unavailable ZANE MCGUIRE Attending Unavailable YANCY MAHAN Surgeon Unavailable IA Procedure Practitioner UnavailHong Ambrose Unavailable Barbara Esposito [...] Unavailable FAWWAD, SAHU H Attending Unavailable FAWWAD, SHAU H Admitting Unavailable FISHER ., DR LUISANA [...] Admitting Unavailable SAMSA ., LUIZ Attending Unavailable ZIEBAMAURY, DR PAULA Bishop Consulting Unavailable FISHER ., DR LUISANA Herbert Primary Care Unavailable SAMSA ., LUIZ Consulting Unavailable GIEDRAITIS, ANDRIUS Admitting Unavailable GIEDRAITIS, ANDRIUS Attending Unavailable STEPHANIE, DR PAULA Bishop Consulting Unavailable REQUEST, DR NONE LISTED Primary Care Unavaila ble GIEDRAITIS, [...] DR LUISANA Herbert Primary Care Unavailable GRECHNY .DANIELLE Consulting Unavailpriyanka herbert RIVER ., KAYLEY Admitting Unavailable RIVER ., KAYLEY Attending Unavailable SLIDELL, DR HONG Morgan Consulting Unavailable FISHER ., DR LUISANA Herbert Primary Care Unavailable GRECHNY ., DANIELLE SHAIKH Consulting UnavailSALOME Mondragon Consulting Unavailable RIVER ., KAYLEY Consulting Unavailable JBARA, YASER Consulting Unavailable SAMSA [...] DR LUISANA Herbert Primary Care Unavailable FAWWAAlysa, H Attending Unavailable FASILVANA, SAHU H Admitting Unavailable SAMSA ., LUIZ Admitting Unavailable SAMSA ., LUIZ Attending Unavailable SAMSA ., LUIZ Consulting Unavailable FISHER ., DR LUISANA Herbert Primary Care Unavailable Giedraitis , Miguel Sainz Attending Unavailable Giedraitis , Miguel Sainz Attending Unavailable YANCY MAHAN Attending Unavailable YANCY MAHAN Attending Unavailable YANCY MAHAN Referring Unavailable CECILIO MEDINA Attending Unavailable SUE KAUR Attending Unavailable YANCY MAHAN Referring Unavailable THANG Clement Attending Provider [phone] MD Janice Denis Primary Care Provider [phone] THANG Clement Attending Provider [phone] SHAIKH DENIS Attending Unavailable SHAIKH DENIS Attending Unavailable Shaikh Denis MD Primary Care Provider [phone] Claire Clement Admitting Unavailable Claire Clement Attending Unavailable Shaikh Denis Primary Care Unavailable Kayley Reeder Admitting Unavailable Kayley Reeder Attending Unavailable Shaikh Denis Primary Care Unavailable Claire Clement Admitting Unavailable Claire Clement Attending Unavailable Shaikh Denis Primary Care Unavailable Allergies Allergy Classification Reported Allergen(s) Allergy Type Date of Onset Reaction(s) Facility (1 source) nov; Translations: [novacaine] Propensity to adverse reactions (disorder) 2 [facility] Repository (2 sources) NSAIDs Propensity to adverse reactions HEART ISSUES [employer] Other (1 source) meloxicam; Translations: [Mobic] Drug Allergy [facility] Repository (1 source) No Known Medication Allergies; Translations: [No Known Medication Allergies] Propensity to adverse reactions (disorder) [facility] Repository (1 source) Digoxin; Translations: [DIGOXIN] Drug Allergy 2 [facility] Repository (1 source) Adhesive agent Drug allergy (disorder) 4 [facility] Repository (1 source) NSAIDs Drug allergy (disorder) 4 [facility] Repository Medications Current Medications Medication Drug [...] capsule (1 source) Anti-epileptic Agent Start: 09-06-20 23 End: 12-05-19 24 take 1 capsule by [...] 0 10/13/2023 Active take 1 capsule by [facility] every twenty-four hours Omeprazole 40 MG 1 [...] 02/14/2023 02/14/2024 Active take 1 capsule by [facility] every twenty-four hours Verapamil HCl ER 360 [...] disease (4 sources) Atherosclerotic heart disease of [place] coronary artery without angina pectoris; Translations: [Coronary [...] Onset: 3 Episodic Other aftercare (1 source) custodial (current) use of anticoagulants; Translations: [FCI CURRNT USE 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] Onset: 3 Episodic Other aftercare (1 source) 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; Translations: [OTH FCI CURRENT DRUG THERAPY] Onset: 3 Episodic Other [...] Spondylosis; intervertebral disc disorders; other back problems (5 sources) Cervical radiculopathy; Translations: [Radiculopathy, cervical region] [...] of cardiac pacemaker pulse generator [battery]] Onset: Past or Other Problems Problem Classification Problem [...] 11-16-2023 XR lumbar spine 6V w bending [facility] [employer] [address] [place] [address] XRay Report Signed Patient: Breann Starks MR#: [id number] 171 : 1945 Acct:[id number] Age/Sex: 77 / F ADM Date: 11/16/23 Loc: Room: Type: [facility] Attending Dr: Kayley PASCALC Copies to: THANG Calvert Ordering Provider: THANG [...] PROCESS. Impression dictated by: Francisco J Benton Jr., D.O.11/16/2023 4:37 PM Dictation Location: [place] [address] Transcribed By: [facility] 11/16/23 1637 Dictated By: Francisco J Benton Jr, DO 11/16/23 1636 Signed By: 11/16/23 1637 Normal [facility] MR lumbar spine wo [place] MR lumbar spine wo con [facility] [employer] [address] [place] [address] XRay Report Signed Patient: Breann Starks MR#: [id number] 171 : 1945 Acct:[id number] Age/Sex: 77 / F ADM Date: 10/11/23 Loc: MR Room: [facility]: Claire DESIR Copies to: THANG Porter Ordering Provider: THANG Porter Date of Service: 10/11/23 MR/MR lumbar spine wo con: LUMBAR RADICULPATHY ([id number]) XR/XR pre/post mri xray: LUMBAR RADICULPATHY CLINICAL [...] Eleanor Reece M.D.10/11/2023 4:10 PM Dictation Location: [place] [address] Transcribed By: [facility] 10/11/23 161 Dictated By: Eleanor Reece MD 10/11/23 1133 Signed By: 10/11/23 1610 [facility] Office Visiton 07-05-2023 Follow-up visit [id number] Kj Starksjoselito Mckenzie 1945 F Date Provider Department Center 07/05/2023 YANCY IVERSON AMISH Ram[facility]rez [facility] Family History Adopted: Yes Family history unknown: Yes Family Status - Relation Status Age at Mother Father Level of Service:94898 [place] OFFICE/OUTPATIENT ESTABLISHED LOW MDM 20-29 MIN Normal [facility] Office Visiton 03-01-2023 Follow-up visit [id number] Kj Starksjoselito Mckenzie 1945 F Date Provider Department Center 03/01/2023 YANCY IVERSON AMISH Ramírez [facility] Family History Adopted: Yes Family history unknown: Yes Family Status - Relation Status Age at Mother Father Level of Service:72140 [place] OFFICE/OUTPATIENT ESTABLISHED MOD MDM 30-39 MIN Reason for Visit and Comments: Follow-up [151126] - 3 month follow up [facility] XR LSPINE W_OBLS AND FLEX_EX Ton [...] by: PAULA DELGADO Date: 2023-01-31 11:34 Normal [facility] Physician Referralon 023 Physician Referral [id number] #1.00CD:127 Normal [facility] Ambulatory Visit Summaryon 0 01-11-2023 Ambulatory [...] Someone Will Contact You Regarding These Appointments [facility] External Ambulatory Referral, Patient choice/referral by family/friend, Pain Management, [facility] Pain managment., 01/11/23 11:02:00 EDT, Sciatica of left side Normal [facility] Ambulatory Visit Summary BREANN STARKS :1945 [...] longer receiving treatment for. Depression Migraines Normal [facility] Family Medicine Office/Clini c Noteon 01-11-2023 Family Medicine Office/Clinic Note HPI Staff Breann is a 77 year old female who presents today to [facility]. Establish Care: History: A fib, COPD, OA of LS and bilateral knees, PSVT, fatty liver, cervical radiculopathy, pacemaker, cirrhosis of the liver History of specialists: Dr. Gonzales, Dr. Kaur-Cardiology, Dr. Martin- chiropractor, [facility] Last provider: Elizabeth Winter recent labs: Jul 2022 Health Maintenance UTD: Colonoscopy: 2012, pt is due Mammogram: December 2022 at [facility] which was normal Pelvic/Pap: pt had [...] longer taking that. will refer back to [place] [facility]. All questions answered. RTC as needed Ordered: methylPREDNISolone, = 1 packet(s), Oral, As Directed, as directed on package labeling, X 6 day(s), # 21 tab(s), Refills(s) 0, Pharmacy: [facility]/pharmacy #[id number], 141, cm, 01/11/23 10:30:00 EDT, Height/Length Dosing, 107.2, kg, 01/11/23 10:30:00 EDT, Weight Dosing [facility] External Ambulatory Referral 2. Myalgia (M79.10: Myalgia, unspecified site) medrol dose pack ordered Ordered: methylPREDNISolone, = 1 packet(s), Oral, As Directed, as directed on package labeling, X 6 day(s), # 21 tab(s), Refills(s) 0, Pharmacy: [facility]/pharmacy #[id number], 141, cm, 01/11/23 10:30:00 EDT, Height/Length Dosing, 107.2, kg, 01/11/23 10:30:00 EDT, Weight Dosing [facility] External Ambulatory Referral BMI 50.0-59.9, adult (Z68.43: [...] Oral, D (more content not included)... Normal [facility] Comment on above: Result Comment: Elec tronically Signed By: Barbara Dai\.br\Date and Time Signed: 01/11/23 11:12 EDT Lab Reportson 12-22-2022 Lab Reports [id number] #1.00CD:127 Normal [facility] 36on 12-17-2022 36 Pt has chose to stop taking atorvastatin Normal [facility] 36on 12-16-2022 36 She was started d/t elevated troponin with chest pain when she was admitted. I believe she was recommended outpatient ischemic evsue bowers saw her on follow up, not sure if stress was ordered or determined not needed, I would follow up with her regarding it. Normal [facility] LIPID PROFILEon 12-16-2022 CHOL-HDL RATIO NORM SEE BELOW Normal [facility] Comment on above: Result Comment: 3.3 - 4.4 LOW RISK 4.4 - 7.1 AVERAGE RISK 7.1 - 11.0 MODERATE RISK >11.0 HIGH RISK Performed By: #### L IPID ####[facility] [address] [place], [place] [address]Ha. Heavenlan Smith Cholesterol [Mass/Vol] 105 mg/dL Normal <=200 [facility] Comment on above: Performed By: #### L IPID ####[facility] [address] [place], [place] [address]Sj. Heavenlan Smith Cholesterol in HDL [Mass/Vol] 48 mg/dL Normal 40-60 [facility] Comment on above: Performed By: #### L IPID ####[facility] [address] [place], [place] [address]Rw. Heavenlan Smith Cholesterol in LDL [Mass/Vol] 48.2 mg/dL Normal [facility] Comment on above: Performed By: #### L IPID ####[facility] [address] [place], [place] [address]Iv. Heavenlan Smith Cholesterol.total/Chol esterol in HDL [Mass ratio] 2.2 {ratio} Normal [facility] Comment on above: Performed By: #### L IPID ####[facility] [address] [place], [place] [address]Bf. Yilan Smith HDL NORMAL > or = 60 mg/dl - LOW CARDIOVASCULAR RISK <40 mg/dl - HIGH CARDIOVASCULAR RISK Normal [facility] Comment on above: Performed By: #### L IPID ####[facility] [address] [place], [place] [address]Jv. Heavenlan Smith LDL CALC NORMAL SEE BELOW Normal [facility] Comment on above: Result Comment: <100 mg/dl OPTIMAL 100 - 129 mg/dl NEAR OR ABOVE OPTIMAL 130 - 159 mg/dl BORDERLINE HIGH 160 - 189 mg/dl HIGH >190 mg/dl VERY HIGH Performed By: #### L IPID ####[facility] [address] [place], [place] [address]Zu. Erasmo Smith Triglyceride [Mass/Vol] 44 mg/dL Normal <=150 [facility] Comment on above: Performed By: #### L IPID ####[facility] [address] [place], [place] [address]Hh. Erasmo Smith VLDL CALC 8.8 mg/dL Normal [facility] Comment on above: Performed By: #### L IPID ####[facility] [address] [place], [place] [address]Un. Erasmo Smith Echocardiographyon Echocardiography [id number] #1.00CD:127 Normal [facility] Outside [facility] Correspo ndenceon 12-13-2022 Outside [facility] Correspondence [id number] #1.00CD:127 Normal [facility] Outside [facility] Correspondence [id number]# 1.00CD:127 Normal [facility] Office Visiton 12-08-2022 Follow-up visit [id number] Breann Starks 1945 F Date Provider Department Center 12/08/2022 [id number]-GBAKWHTLNSUE KAUR [facility] Family History Adopted: Yes Family history unknown: Yes Family Status - Relation Status Age at Mother Father Level of Service:41811 [place] OFFICE/OUTPATIENT ESTABLISHED MOD MDM 30-39 MIN Reason for Visit and Comments: Follow-up [860567] - Discuss stress test. Unable to come up with answers to whats going on Normal [facility] CULTURE BLOODon 12-04-2022 Microscopic examination of [...] Trimethoprim/Sulfame thoxazole <=20 S F Normal [facility] Comment on above: Performed By: #### B LDCX1 ####[facility] [address] [place] [address]Dr. Erasmo Smith BNPon 12-03-2022 Natriuretic peptide B (Bld) [Mass/Vol] 413.0 pg/mL Normal <=1,800.0 [facility] Comment on above: Performed By: #### B DIRECTOR OF PERIOPERATIVE SERVICES #### [facility] [address] [place] [address] [address] Erasmo Smith CBC AUTO DIFFon 12-03-2022 BASO # 0.0 103/ul Normal 0.0-0.1 [facility] Comment on above: Performed By: #### C BC ####[facility] [address] [place], [place] [address]DrMeena Smith Basophils/100 WBC (Bld) 0.2 % Normal 0.2-2.0 [facility] Comment on above: Performed By: #### C BC ####[facility] [address] [place], [place] [address]DrMeena Smith EO # 0.4 103/ul Normal 0.0-0.7 [facility] Comment on above: Performed By: #### C BC ####[facility] [address] [place] [address]Dr. Erasmo Smith Eosinophils/100 WBC (Bld) 2.1 % Normal 0.9-7.0 [facility] Comment on above: Performed By: #### C BC ####[facility] [address] [place], [place] [address]DrMeena Smith Erythrocyte distribution width (RBC) [Ratio] 17.2 % Critically high 11.0-15.0 [facility] Comment on above: Performed By: #### C BC ####[facility] [address] [place] [address]Dr. Erasmo Smith Hematocrit (Bld) [Volume fraction] 29.2 % Critically low 36.0-48.0 [facility] Comment on above: Performed By: #### C BC ####[facility] [address] [place] [address]DrMeena Smith Hemoglobin (Bld) [Mass/Vol] 9.5 g/dL Critically low 12.0-16.0 [facility] Comment on above: Performed By: #### C BC ####[facility] [address] [place], [place] [address]DrMeena Smith IG # 0.13 10e3/ul Critically high 0.00-0.03 [facility] Comment on above: Performed By: #### C BC ####[facility] [address] [place], [place] [address]DrMeena Smith IG % 0.8 % Critically high 0.0-0.5 [facility] Comment on above: Performed By: #### C BC ####[facility] [address] [place], [place] [address]DrMeena Smith LYMPH # 1.8 103/ul Normal 1.2-3.8 [facility] Comment on above: Performed By: #### C BC ####[facility] [address] [place], [place] [address]DrMeena Smith Lymphocytes/100 WBC (Bld) 10.3 % Critically low 20.5-60.0 [facility] Comment on above: Performed By: #### C BC ####[facility] [address] [place], [place] [address]DrMeena Smith MANUAL DIFF REQ NO Normal [facility] Comment on above: Performed By: #### C BC ####[facility] [address] [place], [place] [address]DrMeena Smith MCH (RBC) [Entitic mass] 25.7 pg Critically low 26.7-34.0 [facility] Comment on above: Performed By: #### C BC ####[facility] [address] [place] [address]DrMeena Smith MCHC (RBC) [Mass/Vol] 32.5 g/dL Normal 29.9-35.2 [facility] Comment on above: Performed By: #### C BC ####[facility] [address] [place] [address]DrMeena Smith MCV (RBC) [Entitic vol] 79.1 fL Critically low 81.0-99.0 [facility] Comment on above: Performed By: #### C BC ####[facility] [address] [place] [address]DrMeena Smith MONO # 1.5 103/ul Critically high 0.3-0.8 [facility] Comment on above: Performed By: #### C BC ####[facility] [address] [place], [place] [address]DrMeena Smith Monocytes/100 WBC (Bld) 8.7 % Normal 1.7-12.0 [facility] Comment on above: Performed By: #### C BC ####[facility] [address] [place], [place] [address]DrMeena Smith NEUT # 13.4 103/ul Critically high 1.4-6.5 The [facility] Comment on above: Performed By: #### C BC ####[facility] [address] [place], [place] [address]DrMeena Smith Neutrophils/100 WBC (Bld) 77.9 % Critically high 43.0-75.0 [facility] Comment on above: Performed By: #### C BC ####[facility] [address] [place], [place] [address]DrMeena Smith Platelet mean volume (Bld) [Entitic vol] 9.3 fL Critically low 9.5-13.5 [facility] Comment on above: Performed By: #### C BC ####[facility] [address] [place], [place] [address]DrMeena Smith PLT 205 103/ul Normal 150-450 [facility] Comment on above: Performed By: #### C BC ####[facility] [address] [place], [place] [address]RqDr. Erasmo Smith RBC 3.69 106/ul Critically low 4.20-5.40 [facility] Comment on above: Performed By: #### C BC ####[facility] [address] [place] [id number] Smith WBC 17.2 103/ul Critically high 4.0-11.0 [facility] Comment on above: Performed By: #### C BC ####[facility] [address] [place] [id number]. Erasmo Smith MAGNESIUMon 12-03-2022 Magnesium [Mass/Vol] 1.9 mg/dL Normal 1.8-2.4 [facility] Comment on above: Performed By: #### B DIRECTOR OF PERIOPERATIVE SERVICES #### [facility] [address] [place] [address] [address] Erasmo Smith Orders Onlyon 12-03-2022 Orders Only [id number] KevinjjBreann T 1945 F Date Provider Department Center 12/03/2022 CECILIO CALLAWAY [facility] Family History Family history unknown: Yes Normal [facility] PROF 14(COMP METB)on 023 Albumin [Mass/Vol] 2.6 g/dL Critically low 3.4-5.0 [facility] Comment on above: Performed By: #### B DIRECTOR OF PERIOPERATIVE SERVICES #### [facility] [address] [place] [address] [address] Erasmo Smith Albumin/Globulin [Mass ratio] 0.6 {ratio} Normal [facility] Comment on above: Performed By: #### B DIRECTOR OF PERIOPERATIVE SERVICES #### [facility] [address] [place] [address] [address] Erasmo Smith ALP [Catalytic activity/Vol] 123 U/L Critically high 46-116 [facility] Comment on above: Performed By: #### B DIRECTOR OF PERIOPERATIVE SERVICES #### [facility] [address] [place] [address] [address] Erasmo Smith ALT [Catalytic activity/Vol] 28 U/L Normal 14-59 [facility] Comment on above: Performed By: #### B DIRECTOR OF PERIOPERATIVE SERVICES #### [facility] [address] [place] [address] [address] Erasmo Smith Anion gap [Moles/Vol] 9.4 mmol/L Normal [facility] Comment on above: Performed By: #### B DIRECTOR OF PERIOPERATIVE SERVICES #### [facility] [address] [place] [address] [address] Erasmo Smith AST [Catalytic activity/Vol] 21 U/L Normal 15-37 [facility] Comment on above: Performed By: #### B DIRECTOR OF PERIOPERATIVE SERVICES #### [facility] [address] [place] [address] Dr. Erasmo Smith Bilirubin [Mass/Vol] 0.3 mg/dL Normal 0.2-1.0 [facility] Comment on above: Performed By: #### B DIRECTOR OF PERIOPERATIVE SERVICES #### [facility] [address] [place] [address] Dr. Erasmo Smith Calcium [Mass/Vol] 8.3 mg/dL Critically low 8.5-10.1 [facility] Comment on above: Performed By: #### B DIRECTOR OF PERIOPERATIVE SERVICES #### [facility] [address] [place] [address] Dr. Erasmo Smith Chloride [Moles/Vol] 105 mmol/L Normal 98-107 [facility] Comment on above: Performed By: #### B DIRECTOR OF PERIOPERATIVE SERVICES #### [facility] [address] [place] [address] [address] Erasmo Smith CO2 [Moles/Vol] 27.1 mmol/L Normal 21.0-32.0 [facility] Comment on above: Performed By: #### B DIRECTOR OF PERIOPERATIVE SERVICES #### [facility] [address] [place] [address] Dr. Erasmo Smith Creatinine [Mass/Vol] 0.55 mg/dL Normal 0.55-1.02 [facility] Comment on above: Performed By: #### B DIRECTOR OF PERIOPERATIVE SERVICES #### [facility] [address] [place] [address] Dr. Erasmo Smith EGFR-AF CROATIAN >60 Normal >=60 [facility] Comment on above: Performed By: #### B DIRECTOR OF PERIOPERATIVE SERVICES #### [facility] [address] [place] [address] [address] Erasmo Smith EGFR-NON AF CROATIAN >60 Normal >=60 [facility] Comment on above: Performed By: #### B DIRECTOR OF PERIOPERATIVE SERVICES #### [facility] [address] [place] [address] [address] Erasmo Smith Globulin (S) [Mass/Vol] 4.0 g/dL Normal [facility] Comment on above: Performed By: #### B DIRECTOR OF PERIOPERATIVE SERVICES #### [facility] [address] [place] [address] [address] Erasmo Smith Glucose [Mass/Vol] 132 mg/dL Critically high 74-106 [facility] Comment on above: Performed By: #### B DIRECTOR OF PERIOPERATIVE SERVICES #### [facility] [address] [place] [address] [address] Erasmo Smith Potassium [Moles/Vol] 3.5 mmol/L Normal 3.5-5.1 [facility] Comment on above: Performed By: #### B DIRECTOR OF PERIOPERATIVE SERVICES #### [facility] [address] [place] [address] [address] Erasmo Smith Protein [Mass/Vol] 6.6 g/dL Normal 6.4-8.2 [facility] Comment on above: Performed By: #### B DIRECTOR OF PERIOPERATIVE SERVICES #### [facility] [address] [place] [address] [address] Erasmo Smith Sodium [Moles/Vol] 138 mmol/L Normal 136-145 [facility] Comment on above: Performed By: #### B DIRECTOR OF PERIOPERATIVE SERVICES #### [facility] [address] [place] [address] [address] Erasmo Smith Urea nitrogen [Mass/Vol] 24.0 mg/dL Critically high 7.0-18.0 [facility] Comment on above: Performed By: #### B DIRECTOR OF PERIOPERATIVE SERVICES #### [facility] [address] [place] [address] [address] Erasmo Smith Urea nitrogen/Creatinine [Mass ratio] 43.6 mg/mg Normal [facility] Comment on above: Performed By: #### B DIRECTOR OF PERIOPERATIVE SERVICES #### [facility] [facility] [address] [address] [address] Erasmo Smith PROTIMEon 12-03-2022 INR Coag (PPP) [Relative time] 4.41 {INR} Critically high [facility] Comment on above: Performed By: #### C MREP #### [facility] [address] [address] [address] Erasmo Smith INR GUIDELINES SEE BELOW Normal [facility] Comment on above: Result Comment: ABNER RED INR: 2.0 - 3.0 CONDITIONS NOT LISTED BELOW 2.5 - 3.5 FOR PROSTHETIC HEART VALVE REPLACEMENT 2.5 - 3.5 RECURRENT THROMBOSIS Performed By: #### C MREP #### [facility] [address] [address] [address] Erasmo Smith PT Coag (PPP) [Time] 43.0 s Critically high 9.0-11.6 [facility] Comment on above: Performed By: #### C MREP #### [facility] [address] [address] [address] Erasmo Smith BLOOD CULTURE ID PANELon A. baumannii Not detected Normal NOT DETECTED The [facility] Comment on above: Performed By: #### B CID2 ####[facility] Nf[address] [place], [place] [address]DrMeena Smith Bacteriodes fragilis Not detected Normal NOT DETECTED [facility] Comment on above: Performed By: #### B CID2 ####[facility] [address] [address]Dr. Erasmo Smith BCID CONTROLS PASSED Normal The [facility] Comment on above: Performed By: #### B CID2 ####[facility] [address] [address]Dr. Erasmo Smith BCIDBTHD BLOOD CULTURE BOTTLE INFORMATION Normal [facility] Comment on above: Performed By: #### B CID2 ####[facility] [address] [address]Dr. Erasmo Smith BCIDHD1 ANTIMICROBIAL RESISTANCE GENES Normal [facility] Comment on above: Performed By: #### B CID2 ####[facility] [address] [address]Dr. Yiaen Smith BCIDHD2 SEE BELOW Normal [facility] Comment on above: Result Comment: Note : Antimicrobial resitance can occur via multiple mechanisms. A Not Detected result for the [employer] antomicrobial resistance gene assays does not indicate antimicrobial susceptibility. Subculturing is required for species identification and susceptibility testing of isolates. Performed By: #### B CID2 ####[facility] Jfgucezfl[address] [place], [place] [address]Dr. Erasmo Smith BCIDHD3 Positive Normal [facility] Comment on above: Performed By: #### B CID2 ####[facility] Efyczkcpna[address] [place], [place] [address]Dr. Erasmo Smith BCIDHD4 Negative Normal [facility] Comment on above: Performed By: #### B CID2 ####[facility] R[address]hrjcgwlj[address] [place], [place] [address]Dr. Erasmo Smith BCIDHD5 YEAST Normal [facility] Comment on above: Performed By: #### B CID2 ####[facility] Iqaqovanpj[address] [place], [place] [address]Dr. Erasmo Smith Bottle Set: Set 1 Normal [facility] Comment on above: Performed By: #### B CID2 ####[facility] Ftjhzumncw[address] [place], [place] [address]Dr. Erasmo Smith Bottle: Anaerobic Normal [facility] Comment on above: Performed By: #### B CID2 ####[facility] Qkrvqbdcmw[address] [place], [place] [address]Dr. Yiean Smith C. neoformans/gattii Not detected Normal NOT DETECTED [facility] Comment on above: Performed By: #### B CID2 ####[facility] Unoyjbfkbg314[address] [place], [place] [address]Dr. Yiean Smith Naye albicans Not detected Normal NOT DETECTED [facility] Comment on above: Performed By: #### B CID2 ####[facility] Vipiamgwsb[address] [place], [place] [address]Dr. Yiean Smith Naye auris Not detected Normal NOT DETECTED [facility] Comment on above: Performed By: #### B CID2 ####[facility] [address] [address]Dr. Erasmo Smith Naye glabrata Not detected Normal NOT DETECTED [facility] Comment on above: Performed By: #### B CID2 ####[facility] [address] [address]Dr. Erasmo Smith Naye Krusei Not detected Normal NOT DETECTED The [facility] Comment on above: Performed By: #### B CID2 ####[facility] [address] [address]Dr. Erasmo Smith Naye Parapsilosis Not detected Normal NOT DETECTED [facility] Comment on above: Performed By: #### B CID2 ####[facility] Eluipyikzk[address] [place], [place] [address]Dr. Erasmo Smith Naye Tropicalis Not detected Normal NOT DETECTED [facility] Comment on above: Performed By: #### B CID2 ####[facility] Cajdivtqjj[address] [place], [place] [address]Dr. Erasmo Smith CTX-M Resistant Gene Not Applicable Normal NOT DETECTE D [facility] Comment on above: Performed By: #### B CID2 ####[facility] Bdxffgjjww185[address] [place], [place] [address]Dr. Erasmo Smith E. Cloacae complex Not detected Normal NOT DETECTED [facility] Comment on above: Performed By: #### B CID2 ####[facility] Zingiadgvv7[address] [place], [place] [address]Dr. Erasmo Smith E. faecalis Not detected Normal NOT DETECTED The [facility] Comment on above: Performed By: #### B CID2 ####[facility] Rtuhbfqlny9[address] [place], [place] [address]Dr. Erasmo Smith E. faecium Not detected Normal NOT DETECTED [facility] Comment on above: Performed By: #### B CID2 ####[facility] Ziufendpgd199[address] [place], [place] [address]Dr. Heavenean Smith Enterobacteriaceae Detected Critically abnormal NOT DETECTED [facility] Comment on above: Performed By: #### B CID2 ####[facility] [address] [address]Dr. Erasmo Smith Escherichia coli Detected Critically abnormal NOT DETECTED [facility] Comment on above: Performed By: #### B CID2 ####[facility] [address] [address]Dr. Erasmo Smith H. influenzae Not detected Normal NOT DETECTED [facility] Comment on above: Performed By: #### B CID2 ####[facility] Fqpmxlflxp2364[address] [place], [place] [address]Dr. Erasmo Smith IMP Resistant Gene Not Applicable Normal NOT DETECTED [facility] Comment on above: Performed By: #### B CID2 ####[facility] Qzyonfpvtx1895[address] [place], [place] [address]Dr. Erasmo Smith K. oxytoca Not detected Normal NOT DETECTED [facility] Comment on above: Performed By: #### B CID2 ####[facility] Pbxibkeaqp[address] [place], [place] [address]Dr. Erasmo Smith K. pneumoniae Not detected Normal NOT DETECTED [facility] Comment on above: Performed By: #### B CID2 ####[facility] Aoogffnfll089[address] [place], [place] [address]Dr. Erasmo Smith Klebsiella aerogenes Not detected Normal NOT DETECTED [facility] Comment on above: Performed By: #### B CID2 ####[facility] Vgjsrlzdgs244[address] [place], [place] [address]Dr. Erasmo Smith KPC Resistant Gene Not detected Normal NOT DETECTED [facility] Comment on above: Performed By: #### B CID2 ####[facility] [address] [address]Dr. Erasmo Smith List. monocytogenes Not detected Normal NOT DETECTED [facility] Comment on above: Performed By: #### B CID2 ####[facility] Ccpsegnlks4475[address] [place], [place] [address]Dr. Erasmo Smith Mcr-1 Resistant Gene Not Applicable Normal NOT DETECTE D [facility] Comment on above: Performed By: #### B CID2 ####[facility] [address] [address]Dr. Heavenean Luis mecA/C Not Applicable Normal NOT DETECTED [facility] Comment on above: Performed By: #### B CID2 ####[facility] Nqndncvxbi366[address] [place], [place] [address]Dr. Heavenean Luis mecA/C MREJ Not Applicable Normal NOT DETECTED [facility] Comment on above: Performed By: #### B CID2 ####[facility] Mgsrdjyrja0217[address] [place], [place] [address]Dr. Erasmo Smith N. meningitidis Not detected Normal NOT DETECTED The [facility] Comment on above: Performed By: #### B CID2 ####[facility] Drtukyusyf12[address] [place], [place] [address]Dr. Erasmo Smith NDM Resistant Gene Not Applicable Normal NOT DETECTED [facility] Comment on above: Performed By: #### B CID2 ####[facility] Kwekcdsolb7129[address] [place], [place] [address]Dr. Erasmo Smith Oxa-48-like Not Applicable Normal NOT DETECTED [facility] Comment on above: Performed By: #### B CID2 ####[facility] Oppoairjbo6544[address] [place], [place] [address]Dr. Erasmo Smith Proteus Not detected Normal NOT DETECTED [facility] Comment on above: Performed By: #### B CID2 ####[facility] Utiegsbhvd538[address] [place], [place] [address]Dr. Erasmo Smith Pseud. aeruginosa Not detected Normal NOT DETECTED [facility] Comment on above: Performed By: #### B CID2 ####[facility] Jedclhaopw265[address] [place], [place] [address]Dr. Erasmo Smith S. maltophilia Not detected Normal NOT DETECTED [facility] Comment on above: Performed By: #### B CID2 ####[facility] Uxxfmvjiyc72[address] [place], [place] [address]Dr. Erasmo Smith Salmonella Not detected Normal NOT DETECTED [facility] Comment on above: Performed By: #### B CID2 ####[facility] Rvaktgtkky0836[address] [place], [place] [address]Dr. Erasmo Luis Seratia marcescens Not detected Normal NOT DETECTED [facility] Comment on above: Performed By: #### B CID2 ####[facility] Ooktfspzqa0887[address] [place], [place] [address]Dr. Erasmo Smith Site: l ac Normal [facility] Comment on above: Performed By: #### B CID2 ####[facility] Qfairdmfpk1180[address] [place], [place] [address]Dr. Erasmo Luis Staph. aureus Not detected Normal NOT DETECTED [facility] Comment on above: Performed By: #### B CID2 ####[facility] Vbyoreymyg3714[address] [place], [place] [address]Dr. Erasmo Luis Staph. epidermidis Not detected Normal NOT DETECTED [facility] Comment on above: Performed By: #### B CID2 ####[facility] Bqrrradmfh240[address] [place], [place] [address]Dr. Heavenean Luis Staph. lugdunensis Not detected Normal NOT DETECTED [facility] Comment on above: Performed By: #### B CID2 ####[facility] Dviyafhgvy8697[address] [place], [place] [address]Dr. Erasmo Smith Staphylococcus Not detected Normal NOT DETECTED [facility] Comment on above: Performed By: #### B CID2 ####[facility] Elsvjtinnm3497[address] [place], [place] [address]Dr. Erasmo Smith Strep. agalactiae Not detected Normal NOT DETECTED [facility] Comment on above: Performed By: #### B CID2 ####[facility] Skwflhwlsd3569[address] [place], [place] [address]Dr. Erasmo Smith Strep. pneumoniae Not detected Normal NOT DETECTED [facility] Comment on above: Performed By: #### B CID2 ####[facility] Dayjxrhrsb019[address] [place], [place] [address]Dr. Yiean Smith Strep. pyogenes Not detected Normal NOT DETECTED The [facility] Comment on above: Performed By: #### B CID2 ####[facility] Vkmeaqefau3616[address] [place], [place] [address]Dr. Heavenlan Smith Streptococcus Not detected Normal NOT DETECTED [facility] Comment on above: Performed By: #### B CID2 ####[facility] [address] [address]DrMeena Smith Fran/B Resist. Gene Not detected Normal NOT DETECTED [facility] Comment on above: Performed By: #### B CID2 ####[facility] Fsqkbwzstb3814[address] [place], [place] [address]DrMeena Smith VIM Resistant Gene Not Applicable Normal NOT DETECTED [facility] Comment on above: Performed By: #### B CID2 ####[facility] Ikootpgqlp8633[address] [place], [place] [address]Dr. Erasmo Smith BNPon 12-02-2022 Natriuretic peptide B (Bld) [Mass/Vol] 1059.0 pg/mL Normal <=1,800.0 [facility] Comment on above: Performed By: #### B DIRECTOR OF PERIOPERATIVE SERVICES #### [facility] [address] [place] [address] Dr. Erasmo Smith CBC AUTO DIFFon 12-02-2022 BASO # 0.0 103/ul Normal 0.0-0.1 [facility] Comment on above: Performed By: #### C BC ####[facility] Dgvofegrii254[address] [place], [place] [address]DrMeena Smith Basophils/100 WBC (Bld) 0.2 % Normal 0.2-2.0 [facility] Comment on above: Performed By: #### C BC ####[facility] Qqyflmkkcr3185[address] [place], [place] [address]DrMeena Smith EO # 0.0 103/ul Normal 0.0-0.7 [facility] Comment on above: Performed By: #### C BC ####[facility] Pjdtmhlejw364[address] [place], [place] [address]Dr. Erasmo Smith Eosinophils/100 WBC (Bld) 0.0 % Critically low 0.9-7.0 [facility] Comment on above: Performed By: #### C BC ####[facility] Gyowxotqgs2637[address] [place], [place] [address]DrMeena Smith Erythrocyte distribution width (RBC) [Ratio] 17.3 % Critically high 11.0-15.0 [facility] Comment on above: Performed By: #### C BC ####[facility] [address] [address]Dr. Erasmo Smith Hematocrit (Bld) [Volume fraction] 31.4 % Critically low 36.0-48.0 [facility] Comment on above: Performed By: #### C BC ####[facility] [address] [address]DrMeena Smith Hemoglobin (Bld) [Mass/Vol] 10.0 g/dL Critically low 12.0-16.0 [facility] Comment on above: Performed By: #### C BC ####[facility] Ohqpsguzdf0511[address] [place], [place] [address]DrMeena Smith IG # 0.06 10e3/ul Critically high 0.00-0.03 [facility] Comment on above: Performed By: #### C BC ####[facility] Xbxqrgghpk8813[address] [place], [place] [address]DrMeena Smith IG % 0.4 % Normal 0.0-0.5 [facility] Comment on above: Performed By: #### C BC ####[facility] Anfyxvbomi6[address] [place], [place] [address]DrMeena Smith LYMPH # 1.3 103/ul Normal 1.2-3.8 [facility] Comment on above: Performed By: #### C BC ####[facility] Eneiotqbma7813[address] [place], [place] [address]DrMeena Smith Lymphocytes/100 WBC (Bld) 8.1 % Critically low 20.5-60.0 [facility] Comment on above: Performed By: #### C BC ####[facility] Nftlhkknmt315[address] [place], [place] [address]DrMeena Smith MANUAL DIFF REQ NO Normal [facility] Comment on above: Performed By: #### C BC ####[facility] Vjnphecjvn3225[address] [place], [place] [address]DrMeena Smith MCH (RBC) [Entitic mass] 25.6 pg Critically low 26.7-34.0 [facility] Comment on above: Performed By: #### C BC ####[facility] [address] [address]Dr. Erasmo Luis MCHC (RBC) [Mass/Vol] 31.8 g/dL Normal 29.9-35.2 [facility] Comment on above: Performed By: #### C BC ####[facility] Disjkjyijn4040[address] [place], [place] [address]Dr. Erasmo Smith MCV (RBC) [Entitic vol] 80.3 fL Critically low 81.0-99.0 [facility] Comment on above: Performed By: #### C BC ####[facility] Dhhmvdxmge8069[address] [place], [place] [address]DrMeena Smith MONO # 0.6 103/ul Normal 0.3-0.8 [facility] Comment on above: Performed By: #### C BC ####[facility] Qyfuhffwpw9499[address] [place], [place] [address]Dr. Erasmo Smith Monocytes/100 WBC (Bld) 3.7 % Normal 1.7-12.0 [facility] Comment on above: Performed By: #### C BC ####[facility] Eoagmcudji[address] [place], [place] [address]DrMeena Smith NEUT # 14.5 103/ul Critically high 1.4-6.5 [facility] Comment on above: Performed By: #### C BC ####[facility] Ldtgwgmmyq728[address] [place], [place] [address]Dr. Erasmo Smith Neutrophils/100 WBC (Bld) 87.6 % Critically high 43.0-75.0 [facility] Comment on above: Performed By: #### C BC ####[facility] Elavyegaeg6[address] [place], [place] [address]Dr. Erasmo Smith Platelet mean volume (Bld) [Entitic vol] 10.0 fL Normal 9.5-13.5 [facility] Comment on above: Performed By: #### C BC ####[facility] Z[address] [place], [place] [address]Dr. Erasmo Smith PLT 206 103/ul Normal 150-450 [facility] Comment on above: Performed By: #### C BC ####[facility] [address] [place], [place] [address]Nf. Erasmo Smith RBC 3.91 106/ul Critically low 4.20-5.40 [facility] Comment on above: Performed By: #### C BC ####[facility] [address] [place], [place] [address]Fl. Erasmo Smith WBC 16.5 103/ul Critically high 4.0-11.0 [facility] Comment on above: Performed By: #### C BC ####[facility] [address] [place], [place] [address]Ib. Erasmo Smith ECHOCARDIO M/2D COMPLETEon 0 12-02-2022 ECHOCARDIO M/2D COMPLETE Patient: BREANN STARKS Exam Date: 12/02/2022 : 1945 Gender:F Ordering : KAYLEY HOLMAN . Admission #: [id number] Family : DR LUISANA FISHER . Order #: [id number] CLICK HERE TO VIEW EXAM ECHOCARDIOGRAM REPORT [...] Salazar M.D. on 12/02/2022 at 21:58 Normal [facility] MAGNESIUMon 03-23-2023 Magnesium [Mass/Vol] 2.0 mg/dL Normal 1.8-2.4 [facility] Comment on above: Performed By: #### B DIRECTOR OF PERIOPERATIVE SERVICES #### [facility] [address] [place] [address] Dr. Erasmo Smith PROF 14(COMP METB)on 023 Albumin [Mass/Vol] 2.7 g/dL Critically low 3.4-5.0 [facility] Comment on above: Performed By: #### B DIRECTOR OF PERIOPERATIVE SERVICES #### [facility] [address] [place] [address] Dr. Erasmo Smith Albumin/Globulin [Mass ratio] 0.6 {ratio} Normal [facility] Comment on above: Performed By: #### B DIRECTOR OF PERIOPERATIVE SERVICES #### [facility] [address] [place] [address] Dr. Erasmo Smith ALP [Catalytic activity/Vol] 128 U/L Critically high 46-116 [facility] Comment on above: Performed By: #### B DIRECTOR OF PERIOPERATIVE SERVICES #### [facility] [address] [place] [address] Dr. Erasmo Smith ALT [Catalytic activity/Vol] 34 U/L Normal 14-59 [facility] Comment on above: Performed By: #### B DIRECTOR OF PERIOPERATIVE SERVICES #### [facility] [address] [place] [address] Dr. Erasmo Smith Anion gap [Moles/Vol] 10.6 mmol/L Normal [facility] Comment on above: Performed By: #### B DIRECTOR OF PERIOPERATIVE SERVICES #### [facility] [address] [place] [address] Dr. Erasmo Smith AST [Catalytic activity/Vol] 27 U/L Normal 15-37 [facility] Comment on above: Performed By: #### B DIRECTOR OF PERIOPERATIVE SERVICES #### [facility] [address] [place] [address] Dr. Erasmo Smith Bilirubin [Mass/Vol] 0.5 mg/dL Normal 0.2-1.0 [facility] Comment on above: Performed By: #### B DIRECTOR OF PERIOPERATIVE SERVICES #### [facility] [address] [place] [address] Dr. Erasmo Smith Calcium [Mass/Vol] 8.4 mg/dL Critically low 8.5-10.1 [facility] Comment on above: Performed By: #### B DIRECTOR OF PERIOPERATIVE SERVICES #### [facility] [address] [place] [address] Dr. Erasmo Smith Chloride [Moles/Vol] 104 mmol/L Normal 98-107 [facility] Comment on above: Performed By: #### B DIRECTOR OF PERIOPERATIVE SERVICES #### [facility] [address] [place] [address] Dr. Erasmo Smith CO2 [Moles/Vol] 26.2 mmol/L Normal 21.0-32.0 [facility] Comment on above: Performed By: #### B DIRECTOR OF PERIOPERATIVE SERVICES #### [facility] [address] [place] [address] Dr. Erasmo Smith Creatinine [Mass/Vol] 0.52 mg/dL Critically low 0.55-1.02 [facility] Comment on above: Performed By: #### B DIRECTOR OF PERIOPERATIVE SERVICES #### [facility] [address] [place] [address] Dr. Erasmo Smith EGFR-AF CROATIAN >60 Normal >=60 [facility] Comment on above: Performed By: #### B DIRECTOR OF PERIOPERATIVE SERVICES #### [facility] [address] [place] [address] Dr. Erasmo Smith EGFR-NON AF CROATIAN >60 Normal >=60 [facility] Comment on above: Performed By: #### B DIRECTOR OF PERIOPERATIVE SERVICES #### [facility] [address] [place] [address] Dr. Erasmo Smith Globulin (S) [Mass/Vol] 4.3 g/dL Normal [facility] Comment on above: Performed By: #### B DIRECTOR OF PERIOPERATIVE SERVICES #### [facility] [address] [place] [address] Dr. Erasmo Smith Glucose [Mass/Vol] 135 mg/dL Critically high 74-106 [facility] Comment on above: Performed By: #### B DIRECTOR OF PERIOPERATIVE SERVICES #### [facility] [address] [place] [address] Dr. Erasmo Smith Potassium [Moles/Vol] 3.8 mmol/L Normal 3.5-5.1 [facility] Comment on above: Performed By: #### B DIRECTOR OF PERIOPERATIVE SERVICES #### [facility] [address] [place] [address] Dr. Erasmo Smith Protein [Mass/Vol] 7.0 g/dL Normal 6.4-8.2 [facility] Comment on above: Performed By: #### B DIRECTOR OF PERIOPERATIVE SERVICES #### [facility] [address] [address] [address] Erasmo Smith Sodium [Moles/Vol] 137 mmol/L Normal 136-145 [facility] Comment on above: Performed By: #### B DIRECTOR OF PERIOPERATIVE SERVICES #### [facility] [address] [place] [address] Dr. Erasmo Smith Urea nitrogen [Mass/Vol] 16.0 mg/dL Normal 7.0-18.0 [facility] Comment on above: Performed By: #### B DIRECTOR OF PERIOPERATIVE SERVICES #### [facility] [address] [place] [address] Dr. Erasmo Smith Urea nitrogen/Creatinine [Mass ratio] 30.8 mg/mg Normal [facility] Comment on above: Performed By: #### B DIRECTOR OF PERIOPERATIVE SERVICES #### [facility] [address] [place] [address] Dr. Erasmo Smith PROTIMEon 12-02-2022 INR Coag (PPP) [Relative time] 4.39 {INR} Critically high [facility] Comment on above: Performed By: #### P T #### [facility] [address] [place] [address] Dr. Erasmo Smith INR GUIDELINES SEE BELOW Normal [facility] Comment on above: Result Comment: ABNER RED INR: 2.0 - 3.0 CONDITIONS NOT LISTED BELOW 2.5 - 3.5 FOR PROSTHETIC HEART VALVE REPLACEMENT 2.5 - 3.5 RECURRENT THROMBOSIS Performed By: #### P T #### [facility] [address] [place] [address] Dr. Erasmo Smith PT Coag (PPP) [Time] 42.8 s Critically high 9.0-11.6 [facility] Comment on above: Performed By: #### P T #### [facility] [address] [place] [address] Dr. Erasmo Smith UA RANDOM W/MICROSCOPICon BACTERIA NONE SEEN Normal NONE SEEN [facility] Comment on above: Performed By: #### U AMIC ####[facility] [address] [place] [address]Dr. Erasmo Smith Bilirubin Ql (U) Negative Normal NEGATIVE [facility] Comment on above: Performed By: #### U AMIC ####[facility] [address] [place] [address]Dr. Erasmo Smith CAST NONE SEEN Normal NONE SEEN [facility] Comment on above: Performed By: #### U AMIC ####[facility] [address] [place] [address]Dr. Erasmo Smith Clarity (U) CLEAR Normal CLEAR [facility] Comment on above: Performed By: #### U AMIC ####[facility] [address] [place] [address]Dr. Erasmo Smith Color (U) YELLOW Normal YELLOW [facility] Comment on above: Performed By: #### U AMIC ####[facility] J[address] [place], [place] [address]Dr. Erasmo Smith Crystals LM Nom (Urine sed) NONE SEEN Normal NONE SEEN [facility] Comment on above: Performed By: #### U AMIC ####[facility] [address] [place] [address]Dr. Erasmo Smith Epithelial cells LM Ql (Urine sed) RARE Normal NONE SEEN /RARE [facility] Comment on above: Performed By: #### U AMIC ####[facility] [address] [place] [address]Dr. Erasmo Smith Glucose Ql (U) Negative Normal NEGATIVE [facility] Comment on above: Performed By: #### U AMIC ####[facility] Zcwtw[address] [place], [place] [address]Dr. Erasmo Smith Hemoglobin Ql (U) SMALL Abnormal NEGATIVE [facility] Comment on above: Performed By: #### U AMIC ####[facility] Ktim[address] [place], [place] [address]Dr. Erasmo Smith Ketones Ql (U) 15 mg/dl Abnormal NEGATIVE [facility] Comment on above: Performed By: #### U AMIC ####[facility] [address] [place] [address]Dr. Erasmo Smith LEUKOCYTES Negative Normal NEGATIVE [facility] Comment on above: Performed By: #### U AMIC ####[facility] [address] [place] [address]Dr. Erasmo Smith MUCOUS NONE SEEN Normal NONE SEEN [facility] Comment on above: Performed By: #### U AMIC ####[facility] [address] [place] [address]Dr. Erasmo Smith Nitrite Ql (U) Negative Normal NEGATIVE [facility] Comment on above: Performed By: #### U AMIC ####[facility] V[address] [place], [place] [address]Dr. Erasmo Smith pH (U) 6.0 [pH] Normal 5-9 [facility] Comment on above: Performed By: #### U AMIC ####[facility] M[address] [place], [place] [address]Dr. Erasmo Smith RBC 0-2 Normal 0-2 [facility] Comment on above: Performed By: #### U AMIC ####[facility] [address] [place], [place] [address]Dr. Erasmo Smith SPEC GRAVITY 1.025 Normal 1.005-<=1.02 5 [facility] Comment on above: Performed By: #### U AMIC ####[facility] C[address] [place], [place] [address]Dr. Erasmo Smith UA PROTEIN TRACE Normal NEGATIVE/ TRACE [facility] Comment on above: Performed By: #### U AMIC ####[facility] [address] [place], [place] [address]Dr. Erasmo Smith Urobilinogen Qn (U) 4 {Shraddha'U}/dL Abnormal 0.2 - 1.0 [facility] Comment on above: Performed By: #### U AMIC ####[facility] [address] [place], [place] [address]Dr. Erasmo Smith WBC 0-2 Abnormal NONE SEEN [facility] Comment on above: Performed By: #### U AMIC ####[facility] [address] [place], [place] [address]UyDr. Erasmo Smith CARDIAC ROSA ELENA 3-6on 3 CK [Catalytic activity/Vol] 53 U/L Normal 26-192 [facility] Comment on above: Performed By: #### C MREP #### [facility] [address] [address] [address] Erasmo Smith CK.MB [Mass/Vol] 0.90 ng/mL Normal <=3.60 [facility] Comment on above: Performed By: #### C MREP #### [facility] [address] [address] [address] Erasmo Smith HSTROP 116.7 pg/mL Critically high 4.0-51.3 [facility] Comment on above: Result Comment: CUT- OFF POINTS HAVE BEEN ESTABLISHED BASED ON THE FOURTH UNIVERSAL DEFINITIONS OF MYOCARDIAL INFARCTION. THE UPPER REFERENCE LIMIT (URL) OF TROPONIN, DEFINED THE 99TH PERCENTILE OF cTnI DISTRIBUTION IN A REFERENCE POPULATION, HAS BEEN CONFIRMED THE DECISION THRESHOLD FOR AL DIAGNOSIS. Performed By: #### C MREP #### [facility] [address] [address] [address] Erasmo Smith CK [Catalytic activity/Vol] 47 U/L Normal 26-192 [facility] Comment on above: Performed By: #### B DIRECTOR OF PERIOPERATIVE SERVICES #### [facility] [address] [address] [address] Erasmo Smith CK.MB [Mass/Vol] 1.00 ng/mL Normal <=3.60 [facility] Comment on above: Performed By: #### B DIRECTOR OF PERIOPERATIVE SERVICES #### [facility] [address] [address] [address] Erasmo Smith HSTROP 154.3 pg/mL Critically high 4.0-51.3 [facility] Comment on above: Result Comment: CUT- OFF POINTS HAVE BEEN ESTABLISHED BASED ON THE FOURTH UNIVERSAL DEFINITIONS OF MYOCARDIAL INFARCTION. THE UPPER REFERENCE LIMIT (URL) OF TROPONIN, DEFINED THE 99TH PERCENTILE OF cTnI DISTRIBUTION IN A REFERENCE POPULATION, HAS BEEN CONFIRMED THE DECISION THRESHOLD FOR AL DIAGNOSIS. Performed By: #### B DIRECTOR OF PERIOPERATIVE SERVICES #### [facility] [address] [place] [address] Dr. Erasmo Smith CBC W MANUAL DIFFon 12-02-19 23 ATYPICAL LYMPH # Normal [facility] Comment on above: Performed By: #### C BCMAN #### [facility] [address] [place] [address] Dr. Erasmo Smith ATYPICAL LYMPH % Normal [facility] Comment on above: Performed By: #### C BCMAN #### [facility] [address] [place] [address] Dr. Erasmo Smith BAND # 0.6 103/ul Critically high 0.0-0.3 [facility] Comment on above: Performed By: #### C ALHAJIMAN #### [facility] [address] [place] [address] Dr. Erasmo Smith BAND % 3 % Normal 0-5 [facility] Comment on above: Performed By: #### C ALHAJIMAN #### [facility] [address] [place] [address] Dr. Erasmo Smith BASOM # 0.00 103/ul Normal 0.00-0.10 [facility] Comment on above: Performed By: #### C ALHAJIMAN #### [facility] [address] [place] [address] Dr. Erasmo Smith BASOM % 0.0 % Critically low 0.2-2.0 [facility] Comment on above: Performed By: #### C ANGELA #### [facility] [address] [place] [address] Dr. Erasmo Smith BLAST # Normal [facility] Comment on above: Performed By: #### C ANGELA #### [facility] [address] [place] [address] Dr. Erasmo Smith BLAST % Normal [facility] Comment on above: Performed By: #### C ANGELA #### [facility] [address] [place] [address] Dr. Erasmo Smith CORRECTED WBC Normal 4.0-11.0 [facility] Comment on above: Performed By: #### C BCBLAISE #### [facility] [address] [address] [address] Erasmo Smith EOS # 0.19 103/ul Normal 0.00-0.70 [facility] Comment on above: Performed By: #### C BCBLAISE #### [facility] [address] [address] [address] Erasmo Smith EOS% 1.0 % Normal 0.9-7.0 [facility] Comment on above: Performed By: #### C BCBLAISE #### [facility] [address] [address] [address] Erasmo Smith HCT 32.7 % Critically low 36.0-48.0 [facility] Comment on above: Performed By: #### C ANGELA #### [facility] [address] [address] [address] Erasmo Smith HGB 10.5 g/dl Critically low 12.0-16.0 [facility] Comment on above: Performed By: #### C ANGELA #### [facility] [address] [address] [address] Erasmo Smith LYMPHM # 0.76 103/ul Critically low 1.20-3.80 [facility] Comment on above: Performed By: #### C ANGELA #### [facility] [address] [address] [address] Erasmo Smith LYMPHM% 4.0 % Critically low 20.5-60.0 [facility] Comment on above: Performed By: #### C BCBLAISE #### [facility] [address] [address] [address] Erasmo Smith MCH 25.9 pg Critically low 26.7-34.0 [facility] Comment on above: Performed By: #### C BCBLAISE #### [facility] [address] [address] [address] Erasmo Smith MCHC 32.1 g/dl Normal 29.9-35.2 [facility] Comment on above: Performed By: #### C ANGELA #### [facility] [address] [place] [address] Dr. Erasmo Smith MCV 80.5 fL Critically low 81.0-99.0 [facility] Comment on above: Performed By: #### C BCMAN #### [facility] [address] [place] [address] Dr. Erasmo Smith METAMYELOCYTE # Normal [facility] Comment on above: Performed By: #### C BCMAN #### [facility] [address] [place] [address] Dr. Erasmo Smith METAMYELOCYTE % Normal [facility] Comment on above: Performed By: #### C BCBLAISE #### [facility] [address] [place] [address] Dr. Erasmo Smith MONOM# 1.14 103/ul Critically high 0.30-0.80 [facility] Comment on above: Performed By: #### C ANGELA #### [facility] [address] [place] [address] Dr. Erasmo Smith MONOM% 6.0 % Normal 1.7-12.0 [facility] Comment on above: Performed By: #### C ANGELA #### [facility] [address] [place] [address] Dr. Erasmo Smith MPV 9.4 fL Critically low 9.5-13.5 [facility] Comment on above: Performed By: #### C ANGELA #### [facility] [address] [place] [address] Dr. Erasmo Smith MYELOCYTE # Normal [facility] Comment on above: Performed By: #### C ANGELA #### [facility] [address] [place] [address] Dr. Erasmo Smith MYELOCYTE % Normal [facility] Comment on above: Performed By: #### C ALHAJIMAN #### [facility] [address] [place] [address] Dr. Erasmo Smith NRBC Normal [facility] Comment on above: Performed By: #### C ANGELA #### [facility] [address] [place] [address] Dr. Erasmo Smith PLT 195 103/ul Normal 150-450 [facility] Comment on above: Performed By: #### C BCMAN #### [facility] [address] [address] [address] Erasmo Smith RBC 4.06 106/ul Critically low 4.20-5.40 [facility] Comment on above: Performed By: #### C BCMAN #### [facility] [address] [address] [address] Erasmo Smith RDW 17.7 % Critically high 11.0-15.0 [facility] Comment on above: Performed By: #### C BCMAN #### [facility] [address] [address] [address] Erasmo Smith SEG # 16.34 103/ul Critically high 1.40-6.50 [facility] Comment on above: Performed By: #### C BCMAN #### [facility] [address] [address] [address] Erasmo Smith SEG % 86.0 % Critically high 43.0-75.0 [facility] Comment on above: Performed By: #### C BCMAN #### [facility] [address] [address] [address] Erasmo Smith WBC 19.0 103/ul Critically high 4.0-11.0 [facility] Comment on above: Performed By: #### C BCMAN #### [facility] [address] [place] [address] HEAD WO CONon [...] No acute intracranial pathology. Electronically authenticated by: HAYDERPEARL MCCORMICK Date: 2022 14:50 Normal [facility] CULTURE BLOODon 2022 Microscopic examination of blood, culture Culture Observations: Aerobic and Anaerobic bottle positive. BCID: E. Coli Culture Observations: Refer to for VIOLET. Isolate 1 Escherichia coli Growth of Normal [facility] Comment on above: Performed By: #### B LDCX2 ####[facility] [address] [place], [place] [address]FnMeena Smith Covid-19 PCR (CVDTB)on 11-11 SARS-CoV-2 (COVID-19) RNA EMILY+probe Ql (Unsp spec) Not detected Normal NOT DETECTED [facility] Comment on above: Result Comment: When [...] for this test is supported by the Corporate Executive Chef of Health and Human Service's declaration that [...] used). Performed By: #### C MREP #### [facility] [address] [place], [place] [address] Dr. Erasmo Smith LACTATE/LACTIC ACIDon 2022 Lactate [Moles/Vol] 1.2 mmol/L Normal 0.4-2.0 [facility] Comment on above: Performed By: #### L ACT ####[facility] [address] [place] [id number]. Erasmo Smith PH VENOUS BLOODon 2022 PCO2 VENOUS 37.8 mmHg Critically low 40.0-52.0 [facility] Comment on above: Performed By: #### P HVEN ####[facility] [address] [place] [address]Dr. Heavenean Luis pH VENOUS 7.417 Normal 7.330-7.430 [facility] Comment on above: Performed By: #### P FEDERICO ####[facility] [address] [place] [address]Dr. Erasmo Smith PROF 14(COMP METB)on 023 Albumin [Mass/Vol] 3.1 g/dL Critically low 3.4-5.0 [facility] Comment on above: Performed By: #### Kymberly BELTRE, CMP ####[facility] [address] [place] [address]Dr. Erasmo Smith Albumin/Globulin [Mass ratio] 0.8 {ratio} Normal [facility] Comment on above: Performed By: #### Kymberly BELTRE, CMP ####[facility] [address] [place] [address]Dr. Erasmo Smith ALP [Catalytic activity/Vol] 194 U/L Critically high 46-116 [facility] Comment on above: Performed By: #### Kymberly BELTRE, CMP ####[facility] [address] [place] [address]Dr. Erasmo Smith ALT [Catalytic activity/Vol] 37 U/L Normal 14-59 [facility] Comment on above: Performed By: #### Kymberly BELTRE, CMP ####[facility] [address]so[address] [place] [address]Dr. Erasmo Smith Anion gap [Moles/Vol] 14.6 mmol/L Normal [facility] Comment on above: Performed By: #### Kymberly BELTRE, CMP ####[facility] [address] [place] [address]Dr. Erasmo Smith AST [Catalytic activity/Vol] 32 U/L Normal 15-37 [facility] Comment on above: Performed By: #### Kymberly BELTRE, CMP ####[facility] [address] [place] [address]Dr. Erasmo Smith Bilirubin [Mass/Vol] 1.0 mg/dL Normal 0.2-1.0 [facility] Comment on above: Performed By: #### H STROLYNDA, CMP ####[facility] [address] [place], [place] [address]Dr. Erasmo Smith Calcium [Mass/Vol] 8.9 mg/dL Normal 8.5-10.1 [facility] Comment on above: Performed By: #### H STROPN, CMP ####[facility] [address] [place] [address]Dr. Erasmo Smith Chloride [Moles/Vol] 103 mmol/L Normal 98-107 [facility] Comment on above: Performed By: #### H STROLYNDA, CMP ####[facility] [address] [place], [place] [address]Dr. Erasmo Smith CO2 [Moles/Vol] 23.6 mmol/L Normal 21.0-32.0 [facility] Comment on above: Performed By: #### H STROLYNDA, CMP ####[facility] [address] [place], [place] [address]Dr. Erasmo Smith Creatinine [Mass/Vol] 0.69 mg/dL Normal 0.55-1.02 [facility] Comment on above: Performed By: #### H STROLYNDA, CMP ####[facility] [address] [place], [place] [address]Dr. Erasmo Smith EGFR-AF CROATIAN >60 Normal >=60 [facility] Comment on above: Performed By: #### H STROPN, CMP ####[facility] Hbosenwbuy[address] [place], [place] [address]Dr. Erasmo Smith EGFR-NON AF CROATIAN >60 Normal >=60 [facility] Comment on above: Performed By: #### H STROPN, CMP ####[facility] Sl[address]odes[address] [place], [place] [address]Dr. Erasmo Smith Globulin (S) [Mass/Vol] 4.1 g/dL Normal [facility] Comment on above: Performed By: #### H STROPN, CMP ####[facility] [address] [place] [address]Dr. Erasmo Smith Glucose [Mass/Vol] 121 mg/dL Critically high 74-106 [facility] Comment on above: Performed By: #### H ALEXSANDER, CMP ####[facility] [address] [place] [address]Dr. Erasmo Smith Potassium [Moles/Vol] 3.2 mmol/L Critically low 3.5-5.1 [facility] Comment on above: Performed By: #### H ALEXSANDER, CMP ####[facility] [address] [place] [address]Dr. Erasmo Smith Protein [Mass/Vol] 7.2 g/dL Normal 6.4-8.2 [facility] Comment on above: Performed By: #### H ALEXSANDER, CMP ####[facility] [address] [place] [address]Dr. Erasmo Smith Sodium [Moles/Vol] 138 mmol/L Normal 136-145 [facility] Comment on above: Performed By: #### H ALEXSANDER, CMP ####[facility] [address] [place] [address]Dr. Erasmo Smith Urea nitrogen [Mass/Vol] 17.0 mg/dL Normal 7.0-18.0 [facility] Comment on above: Performed By: #### H ALEXSANDER, CMP ####[facility] [address] [place] [address]Dr. Erasmo Smith Urea nitrogen/Creatinine [Mass ratio] 24.6 mg/mg Normal [facility] Comment on above: Performed By: #### H ALEXSANDER, CMP ####[facility] [address] [place] [address]DrMeena Smith PROTIMEon 2022 INR Coag (PPP) [Relative time] 3.58 {INR} Normal [facility] Comment on above: Performed By: #### P T, PTT #### [facility] [address] [address] [address] Erasmo Smith INR GUIDELINES SEE BELOW Normal [facility] Comment on above: Result Comment: ABNER RED INR: 2.0 - 3.0 CONDITIONS NOT LISTED BELOW 2.5 - 3.5 FOR PROSTHETIC HEART VALVE REPLACEMENT 2.5 - 3.5 RECURRENT THROMBOSIS Performed By: #### P T, PTT #### [facility] [address] [place] [address] Dr. Erasmo Smith PT Coag (PPP) [Time] 35.3 s Critically high 9.0-11.6 [facility] Comment on above: Performed By: #### P T, PTT #### [facility] [address] [place] [address] Dr. Erasmo Smith PTTon 2022 aPTT Coag (Bld) [Time] 40.3 s Critically high 22.3-36. 2 [facility] Comment on above: Performed By: #### P T, PTT #### [facility] [address] [place] [address] Dr. Erasmo Smith TROPONIN, HIGH SENSITIVITYon 2022 HSTROP 194.7 pg/mL Critically high 4.0-51.3 [facility] Comment on above: Result Comment: CUT- OFF POINTS HAVE BEEN ESTABLISHED BASED ON THE FOURTH UNIVERSAL DEFINITIONS OF MYOCARDIAL INFARCTION. THE UPPER REFERENCE LIMIT (URL) OF TROPONIN, DEFINED THE 99TH PERCENTILE OF cTnI DISTRIBUTION IN A REFERENCE POPULATION, HAS BEEN CONFIRMED THE DECISION THRESHOLD FOR AL DIAGNOSIS. Performed By: #### C MREP #### [facility] [address] [place] [address] Dr. Erasmo Smith HSTROP 218.0 pg/mL Critically high 4.0-51.3 [facility] Comment on above: Result Comment: CUT- OFF POINTS HAVE BEEN ESTABLISHED BASED ON THE FOURTH UNIVERSAL DEFINITIONS OF MYOCARDIAL INFARCTION. THE UPPER REFERENCE LIMIT (URL) OF TROPONIN, DEFINED THE 99TH PERCENTILE OF cTnI DISTRIBUTION IN A REFERENCE POPULATION, HAS BEEN CONFIRMED THE DECISION THRESHOLD FOR AL DIAGNOSIS. Performed By: #### B DIRECTOR OF PERIOPERATIVE SERVICES #### [facility] [address] [place] [address] Dr. Erasmo Smith XR CHEST 1 Von [...] IMPRESSION: No acute disease. Electronically authenticated by: OHNG ALSTON Date: 2022 14:18 Normal [facility] Lab Reportson 11-30-2022 Lab Reports [id number] #[id number]:127 Normal [facility] MG MAMM SCREEN 3D TOÑITO CADon 11-26-2022 MG MAMM SCREEN 3D TOÑITO CAD Patient: BREANN STARKS Exam Date: 11/26/2022 : 1945 Gender:F Ordering : DR LUISANA FISHER . Admission #: [id number] Family : Order #: [id number] CLICK HERE TO VIEW EXAM RADIOLOGY REPORT [...] Treatments None Family Cancers None LOCATION: [facility] BREAST COMPOSITION: Heterogeneously dense,which may obscure [...] Paula Delgado M.D. on 11/26/2022 at 14:13 Normal [facility] Office Visiton 11-10-2022 Follow-up visit [id number] Breann Starks T 1945 F Date Provider Department Center 11/10/2022 CECILIO CALLAWAY [facility] Family History Family history unknown: Yes Level of Service:14985 [place] OFFICE/OUTPATIENT ESTABLISHED LOW MDM 20-29 MIN Reason for Visit and Comments: Follow-up [647335] Normal [facility] Refillon 09-18-2022 Refill [id number] Breann Starks T 1945 F Date Provider Department Center 09/18/2022 YANCY IVERSON [facility] CARD [place] Family History Family history unknown: Yes Reason for Visit and Comments: Med Refill [[id number]] [facility] PROF 14(COMP METB)on 022 Albumin [Mass/Vol] 3.8 g/dL Normal 3.4-5.0 [facility] Comment on above: Performed By: #### C MREP #### [facility] [address] [place] [address] Dr. Erasmo Smith Albumin/Globulin [Mass ratio] 0.8 {ratio} Normal [facility] Comment on above: Performed By: #### C MREP #### [facility] [address] [place] [address] Dr. Erasmo Smith ALP [Catalytic activity/Vol] 102 U/L Normal 46-116 [facility] Comment on above: Performed By: #### C MREP #### [facility] [address] [place] [address] Dr. Erasmo Smith ALT [Catalytic activity/Vol] 47 U/L Normal 14-59 [facility] Comment on above: Performed By: #### C MREP #### [facility] [address] [place] [address] Dr. Erasmo Smith Anion gap [Moles/Vol] 12.5 mmol/L Normal [facility] Comment on above: Performed By: #### C MREP #### [facility] [address] [place] [address] Dr. Erasmo Smith AST [Catalytic activity/Vol] 36 U/L Normal 15-37 [facility] Comment on above: Performed By: #### C MREP #### [facility] [address] [place] [address] Dr. Erasmo Smith Bilirubin [Mass/Vol] 0.3 mg/dL Normal 0.2-1.0 [facility] Comment on above: Performed By: #### C MREP #### [facility] [facility] [address] [place] [address] Dr. Erasmo Smith Calcium [Mass/Vol] 8.9 mg/dL Normal 8.5-10.1 [facility] Comment on above: Performed By: #### C MREP #### [facility] [address] [place] [address] Dr. Erasmo Smith Chloride [Moles/Vol] 106 mmol/L Normal 98-107 [facility] Comment on above: Performed By: #### C MREP #### [facility] [address] [place] [address] Dr. Erasmo Smith CO2 [Moles/Vol] 26.9 mmol/L Normal 21.0-32.0 [facility] Comment on above: Performed By: #### C MREP #### [facility] [address] [place] [address] Dr. Erasmo Smith Creatinine [Mass/Vol] 0.79 mg/dL Normal 0.55-1.02 [facility] Comment on above: Performed By: #### C MREP #### [facility] [address] [place] [address] Dr. Erasmo Smith EGFR-AF CROATIAN >60 Normal >=60 [facility] Comment on above: Performed By: #### C MREP #### [facility] [address] [place] [address] Dr. Erasmo Smith EGFR-NON AF CROATIAN >60 Normal >=60 [facility] Comment on above: Performed By: #### C MREP #### [facility] [address] [place] [address] Dr. Erasmo Smith Globulin (S) [Mass/Vol] 4.6 g/dL Normal [facility] Comment on above: Performed By: #### C MREP #### [facility] [address] [address] [address] Erasmo Smith Glucose [Mass/Vol] 102 mg/dL Normal 74-106 [facility] Comment on above: Performed By: #### C MREP #### [facility] [address] [place] [address] Dr. Erasmo Smith Potassium [Moles/Vol] 4.4 mmol/L Normal 3.5-5.1 [facility] Comment on above: Performed By: #### C MREP #### [facility] [address] [place] [address] Dr. Erasmo Smith Protein [Mass/Vol] 8.4 g/dL Critically high 6.4-8.2 [facility] Comment on above: Performed By: #### C MREP #### [facility] [address] [place] [address] Dr. Erasmo Smith Sodium [Moles/Vol] 141 mmol/L Normal 136-145 [facility] Comment on above: Performed By: #### C MREP #### [facility] [address] [place] [address] Dr. Erasmo Smith Urea nitrogen [Mass/Vol] 28.0 mg/dL Critically high 7.0-18.0 [facility] Comment on above: Performed By: #### C MREP #### [facility] [address] [place] [address] Dr. Erasmo Smith Urea nitrogen/Creatinine [Mass ratio] 35.4 mg/mg Normal [facility] Comment on above: Performed By: #### C MREP #### [facility] [address] [place] [address] Dr. Erasmo Smith CBC AUTO DIFFon 07-12-2022 BASO # 0.1 103/ul Normal 0.0-0.1 [facility] Comment on above: Performed By: #### B DIRECTOR OF PERIOPERATIVE SERVICES #### [facility] [address] [place] [address] Dr. Erasmo Smith Basophils/100 WBC (Bld) 0.5 % Normal 0.2-2.0 [facility] Comment on above: Performed By: #### B DIRECTOR OF PERIOPERATIVE SERVICES #### [facility] [address] [place] [address] Dr. Erasmo Smith EO # 0.2 103/ul Normal 0.0-0.7 [facility] Comment on above: Performed By: #### B DIRECTOR OF PERIOPERATIVE SERVICES #### [facility] [address] [place] [address] Dr. Erasmo Smith Eosinophils/100 WBC (Bld) 2.5 % Normal 0.9-7.0 [facility] Comment on above: Performed By: #### B DIRECTOR OF PERIOPERATIVE SERVICES #### [facility] [address] [place] [address] Dr. Erasmo Smith Erythrocyte distribution width (RBC) [Ratio] 17.2 % Critically high 11.0-15.0 [facility] Comment on above: Performed By: #### B DIRECTOR OF PERIOPERATIVE SERVICES #### [facility] [address] [place] [address] Dr. Erasmo Smith Hematocrit (Bld) [Volume fraction] 35.0 % Critically low 36.0-48.0 [facility] Comment on above: Performed By: #### B DIRECTOR OF PERIOPERATIVE SERVICES #### [facility] [address] [place] [address] Dr. Erasmo Smith Hemoglobin (Bld) [Mass/Vol] 11.3 g/dL Critically low 12.0-16.0 [facility] Comment on above: Performed By: #### B DIRECTOR OF PERIOPERATIVE SERVICES #### [facility] [address] [place] [address] Dr. Erasmo Smith IG # 0.02 10e3/ul Normal 0.00-0.03 [facility] Comment on above: Performed By: #### B DIRECTOR OF PERIOPERATIVE SERVICES #### [facility] [address] [place] [address] Dr. Erasmo Smith IG % 0.2 % Normal 0.0-0.5 [facility] Comment on above: Performed By: #### B DIRECTOR OF PERIOPERATIVE SERVICES #### [facility] [address] [place] [address] Dr. Erasmo Smith LYMPH # 2.3 103/ul Normal 1.2-3.8 [facility] Comment on above: Performed By: #### B DIRECTOR OF PERIOPERATIVE SERVICES #### [facility] [address] [place] [address] Dr. Erasmo Smith Lymphocytes/100 WBC (Bld) 25.4 % Normal 20.5-60.0 [facility] Comment on above: Performed By: #### B DIRECTOR OF PERIOPERATIVE SERVICES #### [facility] [address] [place] [address] Dr. Erasmo Smith MANUAL DIFF REQ NO Normal [facility] Comment on above: Performed By: #### B DIRECTOR OF PERIOPERATIVE SERVICES #### [facility] [address] [place] [address] Dr. Erasmo Smith MCH (RBC) [Entitic mass] 25.5 pg Critically low 26.7-34.0 [facility] Comment on above: Performed By: #### B DIRECTOR OF PERIOPERATIVE SERVICES #### [facility] [address] [place] [address] Dr. Erasmo Smith MCHC (RBC) [Mass/Vol] 32.3 g/dL Normal 29.9-35.2 [facility] Comment on above: Performed By: #### B DIRECTOR OF PERIOPERATIVE SERVICES #### [facility] [address] [place] [address] Dr. Erasmo Smith MCV (RBC) [Entitic vol] 78.8 fL Critically low 81.0-99.0 [facility] Comment on above: Performed By: #### B DIRECTOR OF PERIOPERATIVE SERVICES #### [facility] [address] [place] [address] Dr. Erasmo Smith MONO # 0.7 103/ul Normal 0.3-0.8 [facility] Comment on above: Performed By: #### B DIRECTOR OF PERIOPERATIVE SERVICES #### [facility] [address] [place] [address] Dr. Erasmo Smith Monocytes/100 WBC (Bld) 7.5 % Normal 1.7-12.0 [facility] Comment on above: Performed By: #### B DIRECTOR OF PERIOPERATIVE SERVICES #### [facility] [address] [place] [address] Dr. Erasmo Smith NEUT # 5.9 103/ul Normal 1.4-6.5 [facility] Comment on above: Performed By: #### B DIRECTOR OF PERIOPERATIVE SERVICES #### [facility] [address] [address] [address] Erasmo Smith Neutrophils/100 WBC (Bld) 63.9 % Normal 43.0-75.0 [facility] Comment on above: Performed By: #### B DIRECTOR OF PERIOPERATIVE SERVICES #### [facility] [address] [address] [address] Erasmo Smith Platelet mean volume (Bld) [Entitic vol] 9.0 fL Critically low 9.5-13.5 [facility] Comment on above: Performed By: #### B DIRECTOR OF PERIOPERATIVE SERVICES #### [facility] [address] [place] [address] Dr. Erasmo Smith PLT 305 103/ul Normal 150-450 [facility] Comment on above: Performed By: #### B DIRECTOR OF PERIOPERATIVE SERVICES #### [facility] [address] [place] [address] Dr. Erasmo Smith RBC 4.44 106/ul Normal 4.20-5.40 [facility] Comment on above: Performed By: #### B DIRECTOR OF PERIOPERATIVE SERVICES #### [facility] [address] [place] [address] Dr. Erasmo Smith WBC 9.2 103/ul Normal 4.0-11.0 [facility] Comment on above: Performed By: #### B DIRECTOR OF PERIOPERATIVE SERVICES #### [facility] [address] [place] [address] CHEST WO CONon [...] by: PAULA DELGADO Date: 2022-05-27 15:27 Normal [facility] HEMOGLOBINon 04-20-2022 Hemoglobin (Bld) [Mass/Vol] 10.6 g/dL Critically low 12.0-16.0 [facility] Comment on above: Performed By: #### H GB ####[facility] [address] [place], [place] [address]Dr. Erasmo Smith CULTURE SPUTUMon 04-02-2022 CULTURE SPUTUM Isolate 1 Pseudomonas aeruginosa Light growth of ORGANISM 1 Pseudomonas aeruginosa ANTIBIOTIC M.I.C RX STATUS Piperacillin/Tazobac saez 8 S F Ceftazidime 2 S F Imipenem 1 S F Amikacin <=2 S F Gentamicin <=1 S F Tobramycin <=1 S F Ciprofloxacin <=0.25 S F Levofloxacin 0.25 S F Normal [facility] Comment on above: Performed By: #### S PUTCX ####[facility] [address] [place], [place] [address]Dr. Erasmo Smith CYTOLOGYon 03-30-2022 SENT TO REF LAB 03/31/22 Normal [facility] Comment on above: Performed By: #### C YTO #### [facility] [address] [place] [address] Dr. Erasmo Smith SPUTUM GRAM STAINon 03-30-20 22 COMMENTS Normal [facility] Comment on above: Performed By: #### B DIRECTOR OF PERIOPERATIVE SERVICES #### [facility] [address] [place] [address] Dr. Erasmo Smith DIPHTHEROIDS Normal [facility] Comment on above: Performed By: #### B DIRECTOR OF PERIOPERATIVE SERVICES #### [facility] [address] [address] [address] Erasmo Smith EPITHELIALS <25 Normal [facility] Comment on above: Performed By: #### B DIRECTOR OF PERIOPERATIVE SERVICES #### [facility] [address] [address] [address] Erasmo Smith FUNGAL ELEMENTS Normal [facility] Comment on above: Performed By: #### B DIRECTOR OF PERIOPERATIVE SERVICES #### [facility] [address] [address] [address] Erasmo Smith GRAM NEG BACILLI FEW Normal [facility] Comment on above: Performed By: #### B DIRECTOR OF PERIOPERATIVE SERVICES #### [facility] [address] [address] [address] Erasmo CINTRON NEG DIPPLOCOCCI Normal [facility] Comment on above: Performed By: #### B DIRECTOR OF PERIOPERATIVE SERVICES #### [facility] [address] [address] [address] Erasmo CINTRON POS BACILLI Normal [facility] Comment on above: Performed By: #### B DIRECTOR OF PERIOPERATIVE SERVICES #### [facility] [address] [address] [address] Erasmo Smith GRAM POSITIVE COCCI MANY Normal [facility] Comment on above: Performed By: #### B DIRECTOR OF PERIOPERATIVE SERVICES #### [facility] [address] [address] [address] Erasmo Smith WBC (Bld) [#/Vol] 10*3/uL Normal [facility] Comment on above: Performed By: #### B DIRECTOR OF PERIOPERATIVE SERVICES #### [facility] [address] [address] [address] Erasmo Smith SPUTUM CULTUREon 03-01-2022 Epithelial cells LM Ql (Urine sed) Few Normal [facility] Comment on above: Performed By: #### C XSPTUM ####[facility] [address] [address]Dr[address] Erasmo Smith Gram Stain Evaluation Comment Normal [facility] Comment on above: Result Comment: This specimen is of good quality and is acceptable for routine bacterial culture. Performed By: #### C XSPTUM ####[facility] [address] [address]Dr. Erasmo Smith Lower Respiratory Culture Final report Normal [facility] Comment on above: Performed By: #### C XSPTUM ####[facility] [address] [id number] Erasmo Smith Result 1 Comment Normal [facility] Comment on above: Result Comment: Few gram positive cocci Performed By: #### C XSPTUM ####[facility] [address] [id number] Erasmo Smith Result Comment: Rout ine respiratory adria Result 2 Normal [facility] Comment on above: Performed By: #### C XSPTUM ####[facility] [address] [address]Dr. Erasmo Smith Result 3 Normal [facility] Comment on above: Performed By: #### C XSPTUM ####[facility] [address] [address]Dr. Erasmo Smith Result 4 Normal [facility] Comment on above: Performed By: #### C XSPTUM ####[facility] [address] [address]Dr. Erasmo Smith White Blood Cells Few Normal [facility] Comment on above: Performed By: #### C XSPTUM ####[facility] [address] [address] Erasmo Smith BNPon 02-24-2022 Natriuretic peptide B (Bld) [Mass/Vol] 319.0 pg/mL Normal <=900.0 [facility] Comment on above: Performed By: #### B DIRECTOR OF PERIOPERATIVE SERVICES #### [facility] [address] [address] [address] Erasmo Smith CBC AUTO DIFFon 02-24-2022 BASO # 0.1 103/ul Normal 0.0-0.1 [facility] Comment on above: Performed By: #### C MREP #### [facility] [address] [address] [address] Erasmo Smith Basophils/100 WBC (Bld) 0.5 % Normal 0.2-2.0 [facility] Comment on above: Performed By: #### C MREP #### [facility] [address] [place] [address] Dr. Erasmo Smith EO # 0.3 103/ul Normal 0.0-0.7 [facility] Comment on above: Performed By: #### C MREP #### [facility] [address] [place] [address] Dr. Erasmo Smith Eosinophils/100 WBC (Bld) 3.1 % Normal 0.9-7.0 [facility] Comment on above: Performed By: #### C MREP #### [facility] [address] [place] [address] Dr. Erasmo Smith Erythrocyte distribution width (RBC) [Ratio] 15.1 % Critically high 11.0-15.0 [facility] Comment on above: Performed By: #### C MREP #### [facility] [address] [place] [address] Dr. Erasmo Smith Hematocrit (Bld) [Volume fraction] 33.9 % Critically low 36.0-48.0 [facility] Comment on above: Performed By: #### C MREP #### [facility] [address] [place] [address] Dr. Erasmo Smith Hemoglobin (Bld) [Mass/Vol] 10.7 g/dL Critically low 12.0-16.0 [facility] Comment on above: Performed By: #### C MREP #### [facility] [address] [place] [address] Dr. Erasmo Smith IG # 0.03 10e3/ul Normal 0.00-0.03 [facility] Comment on above: Performed By: #### C MREP #### [facility] [address] [place] [address] Dr. Erasmo Smith IG % 0.3 % Normal 0.0-0.5 [facility] Comment on above: Performed By: #### C MREP #### [facility] [address] [place] [address] Dr. Erasmo Smith LYMPH # 2.8 103/ul Normal 1.2-3.8 [facility] Comment on above: Performed By: #### C MREP #### [facility] [address] [place] [address] Dr. Erasmo Smith Lymphocytes/100 WBC (Bld) 30.6 % Normal 20.5-60.0 [facility] Comment on above: Performed By: #### C MREP #### [facility] [address] [place] [address] Dr. Erasmo Smith MANUAL DIFF REQ NO Normal [facility] Comment on above: Performed By: #### C MREP #### [facility] [address] [place] [address] Dr. Erasmo Smith MCH (RBC) [Entitic mass] 26.9 pg Normal 26.7-34.0 [facility] Comment on above: Performed By: #### C MREP #### [facility] [address] [place] [address] Dr. Erasmo Smith MCHC (RBC) [Mass/Vol] 31.6 g/dL Normal 29.9-35.2 [facility] Comment on above: Performed By: #### C MREP #### [facility] [address] [place] [address] Dr. Erasmo Smith MCV (RBC) [Entitic vol] 85.2 fL Normal 81.0-99.0 [facility] Comment on above: Performed By: #### C MREP #### [facility] [address] [place] [address] Dr. Erasmo Smith MONO # 0.7 103/ul Normal 0.3-0.8 [facility] Comment on above: Performed By: #### C MREP #### [facility] [address] [place] [address] Dr. Erasmo Smith Monocytes/100 WBC (Bld) 7.9 % Normal 1.7-12.0 [facility] Comment on above: Performed By: #### C MREP #### [facility] [address] [place] [address] Dr. Erasmo Smith NEUT # 5.3 103/ul Normal 1.4-6.5 [facility] Comment on above: Performed By: #### C MREP #### [facility] [address] [place] [address] Dr. Erasmo Smith Neutrophils/100 WBC (Bld) 57.6 % Normal 43.0-75.0 [facility] Comment on above: Performed By: #### C MREP #### [facility] [address] [address] [address] Erasmo Smith Platelet mean volume (Bld) [Entitic vol] 9.0 fL Critically low 9.5-13.5 [facility] Comment on above: Performed By: #### C MREP #### [facility] [address] [address] [address] Erasmo Smith PLT 249 103/ul Normal 150-450 [facility] Comment on above: Performed By: #### C MREP #### [facility] [address] [place] [address] Dr. Erasmo Smith RBC 3.98 106/ul Critically low 4.20-5.40 [facility] Comment on above: Performed By: #### C MREP #### [facility] [address] [place] [address] Dr. Erasmo Smith WBC 9.1 103/ul Normal 4.0-11.0 [facility] Comment on above: Performed By: #### C MREP #### [facility] [address] [place] [address] Dr. Erasmo Smith CTA CHEST WO W [...] by: PAULA DELGADO Date: 2022-02-24 18:24 Normal [facility] D-DIMERon 02-24-2022 D-DIMER 1.36 mg/L FEU Critically high <=0.59 [facility] Comment on above: Performed By: #### D DIM #### [facility] [address] [place] [address] Dr. Erasmo Smith D-DIMER COMMENTS SEE BELOW Normal [facility] Comment on above: Result Comment: Incr eases [...] hospitalization. Performed By: #### D DIM #### [facility] [address] [address] [address] Erasmo Smith PROF 14(COMP METB)on 022 Albumin [Mass/Vol] 3.6 g/dL Normal 3.4-5.0 [facility] Comment on above: Performed By: #### C MREP #### [facility] [address] [place] [address] Dr. Erasmo Smith Albumin/Globulin [Mass ratio] 0.8 {ratio} Normal [facility] Comment on above: Performed By: #### C MREP #### [facility] [address] [place] [address] Dr. Erasmo Smith ALP [Catalytic activity/Vol] 95 U/L Normal 46-116 [facility] Comment on above: Performed By: #### C MREP #### [facility] [address] [place] [address] Dr. Erasmo Smith ALT [Catalytic activity/Vol] 45 U/L Normal 14-59 [facility] Comment on above: Performed By: #### C MREP #### [facility] [address] [address] [address] Erasmo Smith Anion gap [Moles/Vol] 15.9 mmol/L Normal [facility] Comment on above: Performed By: #### C MREP #### [facility] [address] [place] [address] Dr. Erasmo Smith AST [Catalytic activity/Vol] 33 U/L Normal 15-37 [facility] Comment on above: Performed By: #### C MREP #### [facility] [address] [place] [address] Dr. Erasmo Smith Bilirubin [Mass/Vol] 0.5 mg/dL Normal 0.2-1.0 [facility] Comment on above: Performed By: #### C MREP #### [facility] [address] [place] [address] Dr. Erasmo Smith Calcium [Mass/Vol] 9.1 mg/dL Normal 8.5-10.1 [facility] Comment on above: Performed By: #### C MREP #### [facility] [address] [place] [address] Dr. Erasmo Smith Chloride [Moles/Vol] 103 mmol/L Normal 98-107 [facility] Comment on above: Performed By: #### C MREP #### [facility] [address] [place] [address] Dr. Erasmo Smith CO2 [Moles/Vol] 25.1 mmol/L Normal 21.0-32.0 [facility] Comment on above: Performed By: #### C MREP #### [facility] [address] [place] [address] Dr. Erasmo Smith Creatinine [Mass/Vol] 0.77 mg/dL Normal 0.55-1.02 [facility] Comment on above: Performed By: #### C MREP #### [facility] [address] [address] [address] Erasmo Smith EGFR-AF CROATIAN >60 Normal >=60 [facility] Comment on above: Performed By: #### C MREP #### [facility] [address] [address] [address] Erasmo Smith EGFR-NON AF CROATIAN >60 Normal >=60 [facility] Comment on above: Performed By: #### C MREP #### [facility] [address] [address] [address] Erasmo Smith Globulin (S) [Mass/Vol] 4.3 g/dL Normal [facility] Comment on above: Performed By: #### C MREP #### [facility] [address] [place] [address] Dr. Erasmo Smith Glucose [Mass/Vol] 92 mg/dL Normal 74-106 [facility] Comment on above: Performed By: #### C MREP #### [facility] [address] [address] [address] Erasmo Smith Potassium [Moles/Vol] 4.0 mmol/L Normal 3.5-5.1 [facility] Comment on above: Performed By: #### C MREP #### [facility] [address] [address] [address] Erasmo Smith Protein [Mass/Vol] 7.9 g/dL Normal 6.4-8.2 [facility] Comment on above: Performed By: #### C MREP #### [facility] [address] [address] [address] Erasmo Smith Sodium [Moles/Vol] 140 mmol/L Normal 136-145 [facility] Comment on above: Performed By: #### C MREP #### [facility] [address] [address] [address] Erasmo Smith Urea nitrogen [Mass/Vol] 17.0 mg/dL Normal 7.0-18.0 [facility] Comment on above: Performed By: #### C MREP #### [facility] [address] [address] [address] Erasmo Smith Urea nitrogen/Creatinine [Mass ratio] 22.1 mg/mg Normal [facility] Comment on above: Performed By: #### C MREP #### [facility] [address] [address] [address] Erasmo Smith PROTIMEon 02-24-2022 INR Coag (PPP) [Relative time] 2.28 {INR} Normal [facility] Comment on above: Performed By: #### P T, PTT ####[facility] [address] [address]Dr. Erasmo Smith INR GUIDELINES SEE BELOW Normal [facility] Comment on above: Result Comment: ABNER RED INR: 2.0 - 3.0 CONDITIONS NOT LISTED BELOW 2.5 - 3.5 FOR PROSTHETIC HEART VALVE REPLACEMENT 2.5 - 3.5 RECURRENT THROMBOSIS Performed By: #### P T, PTT ####[facility] [address] [address]Dr[address]ena Smith PT Coag (PPP) [Time] 23.3 s Critically high 9.0-11.6 [facility] Comment on above: Performed By: #### P T, PTT ####[facility] [id number] [address]DrMeena Smith PTTon 02-24-2022 aPTT Coag (Bld) [Time] 34.7 s Normal 22.3-36.2 [facility] Comment on above: Performed By: #### P T, PTT ####[facility] [id number] [address]Dr. Erasmo Smith TROPONIN, HIGH SENSITIVITYon 02-24-2022 HSTROP 6.6 pg/mL Normal 4.0-51.3 [facility] Comment on above: Result Comment: CUT- OFF POINTS HAVE BEEN ESTABLISHED BASED ON THE FOURTH UNIVERSAL DEFINITIONS OF MYOCARDIAL INFARCTION. THE UPPER REFERENCE LIMIT (URL) OF TROPONIN, DEFINED THE 99TH PERCENTILE OF cTnI DISTRIBUTION IN A REFERENCE POPULATION, HAS BEEN CONFIRMED THE DECISION THRESHOLD FOR AL DIAGNOSIS. Performed By: #### C MREP #### [facility] [address] [address] [address] Erasmo Smith PROTHROMBIN TIMEon INR Coag (PPP) [Relative time] 1.2 {INR} High 0.86-1.16 [facility] Comment on above: Result Comment: INR Theraputic Range: 2.0-3.5 Performed at [facility] [id number] [address] [facility] [id number] PT Coag (PPP) [Time] 12.7 s Normal 9.3-12.7 [facility] ANTICOAGULANT COUMADIN Normal [facility] Vital Signs Date Time Vital Sign Value Performing Clinician Eyali litjoby 10-07-2021 16:00-0500 Body height 146.69 cm Hong Tonydevon Other [facility] Other 10-07-2021 16:00-0500 Body mass index (BMI) [Ratio] 51.01 kg/m2 Hong Tonydevon Other [facility] Other 10-07-2021 16:00-0500 Body weight 109.77 kg Hong Geri Other [facility] Other 08-26-2021 15:15-0500 Body height 146.69 cm Hong Geri Other [facility] Other 08-26-2021 15:15-0500 Body mass index (BMI) [Ratio] 51.07 kg/m2 Hong Geri Other [facility] Other 08-26-2021 15:15-0500 Body weight 109.91 kg Hong Geri Other [facility] Other Encounters Encounter Date Encounter Type Care Provider Facility Start: 11-16-2023 End: 11-16-2023 ambulatory Kayley Reeder Facility:[facility] Start: 10-17-2023 Cristobal Denis MD Work Phone: [facility] Start: 10-17-2023 Bamboo flowsheet Shaikh Cira CUBA Work Phone: [facility] Start: 10-17-2023 End: 10-17-2023 ambulatory SHAIKH CIRA Not Available Start: 10-11-2023 End: 10-11-2023 ambulatory MD Shaikh Denis Work Phone: [facility] Work Phone: Start: 10-11-2023 End: 10-11-2023 Patient encounter procedure MD Shaikh Denis Work Phone: [facility] [employer] Work Phone: Start: 09-08-2023 End: 09-08-2023 ambulatory Claire Clement Facility:[facility] Start: 09-08-2023 End: 09-08-2023 ambulatory MD Shaikh Denis Work Phone: [facility] Work Phone: Start: 09-08-2023 End: 09-08-2023 Patient encounter procedure MD Shaikh Denis Work Phone: [facility]-Pacemaker Check Start: 09-06-2023 End: 09-06-2023 ambulatory SHAIKH CIRA Not Available Start: 09-06-2023 Patient encounter procedure Shaikh Cira CUBA Work Phone: [facility] Start: 07-08-2023 End: 07-08-2023 ambulatory [facility] Start: 07-05-2023 End: 07-05-2023 ambulatory [facility] Start: 04-11-2023 End: 04-12-2023 ambulatory [facility] Start: 03-01-2023 End: 03-01-2023 ambulatory [facility] Start: 01-31-2023 End: 02-01-2023 ambulatory ANDRIUS GIEDRAITIS Facility:[facility] Start: 01-28-2023 End: 01-29-2023 ambulatory ANDRIUS GIEDRAITIS Facility:[facility] Start: 01-11-2023 End: 01-12-2023 ambulatory Barbara Esposito Facility:[facility] Start: 01-10-2023 End: 02-09-2023 ambulatory SHAIKH Kymberly DENIS Facility:[facility] Start: 12-28-2022 End: 12-28-2022 ambulatory [facility] Start: 12-16-2022 End: 12-17-[address] DOCTOR KENNEDY Facility:[facility] Start: 12-13-2022 End: 01-07-[address] LUISANA FISHER . Facility:[facility] Start: 12-08-2022 End: 12-08-2022 ambulatory [facility] Start: 2022 End: 12-03-2022 Evaluation and management of inpatient KAYLEY RIVER . Facility:[facility] Start: 11-29-2022 ambulatory Barbara Esposito Facility:[facility] Start: 11-26-2022 End: 11-27-[address] LUISANA FISHER . Facility:[facility] Start: 11-10-2022 End: 11-10-2022 ambulatory CECILIO [facility] Start: 11-10-2022 End: 12-10-2022 ambulatory SHAIKH Kymberly DENIS Facility:[facility] Start: 10-13-2022 End: 11-10-2022 ambulatory SHAIKH Kymberly DENIS Facility:[facility] Start: 09-13-2022 End: 10-13-[address] LUISANA FISHER . Facility:[facility] Start: 08-12-2022 End: 09-12-[address] LUISANA FISHER . Facility:[facility] Start: 07-13-2022 End: 07-14-2022 ambulatory LUIZ QUEEN . Facility:[facility] Start: 07-13-2022 End: 07-14-[address] LUISANA FISHER . Facility:[facility] Start: 07-13-2022 End: 08-11-2022 ambulatory Kymberly CIRA Facility:[facility] Start: 07-12-2022 End: 07-13-[address] LUISANA FISHER . Facility:[facility] Start: 06-13-2022 End: 07-12-2022 ambulatory SAHUSHAHEED COLÓNMADHURI Facility:[facility] Start: 05-27-2022 End: 05-28-2022 ambulatory LUIZ QUEEN . Facility:[facility] Start: 05-19-2022 End: 05-20-2022 ambulatory LUIZ QUEEN . Facility:[facility] Start: 05-13-2022 End: 06-12-2022 ambulatory SHAIKH Kymberly COLÓNMADHURI Facility:[facility] Start: 04-20-2022 End: 04-21-2022 ambulatory LUIZ QUEEN . Facility:[facility] Start: 04-12-2022 End: 05-12-2022 ambulatory SAHU H CIRA Facility:[facility] Start: 03-30-2022 End: 03-30-[address] LUISANA FISHER . Facility:[facility] Start: 03-12-2022 End: 04-09-2022 ambulatory SHAIKH Kymberly DENIS Facility:[facility] Start: 02-25-2022 End: 02-25-[address] LUISANA FISHER . Facility:[facility] Start: 02-24-2022 End: 02-25-[address] LUISANA FISHER . Facility:[facility] Start: 10-07-2021 End: 10-07-2021 ambulatory Hong Nevarez Other [facility] Other Start: 10-07-2021 Office outpatient visit 15 minutes Hong Nevarez [facility] Start: 08-26-2021 End: 08-26-2021 ambulatory Hong Nevarez Other [facility] Other Start: 08-26-2021 Office outpatient ne w 45 minutes Hong Nevarez [facility] Start: 10-11-2020 End: 10-13-2020 Evaluation and management of inpatient ZAEN MAYNOR Facility:[facility] Procedures Date Procedure Procedure Detail Performing Clinician Start: 10-11-2023 XR pre/post mri xray MD Shaikh Denis Work Phone: Start: 10-11-2023 MR lumbar spine wo con MD Shaikh Denis Work Phone: Start: 03-01-2023 Follow-up visit Follow-up YANCY PERALES PABLOKO Start: 10-13-2020 INSERT PACE. DUAL CH AM IN CHEST SUBCU/FASCIA, OPEN YANCY MAHAN Start: 10-13-2020 INSERTION OF PACEMAK ER LEAD INTO R VENTRICLE, PERC APPROACH YANCY MINOO Start: 10-13-2020 INSERTION OF PACEMAK ER LEAD INTO RIGHT ATRIUM, PERC APPROACH YANCY MINOO Start: 09-12-2017 Colonoscopy Shaikh Dominique eid MD Work Phone: Plan of Treatment Date Care Activity Detail Author Start: 09-12-2027 Screening for malign ant neoplasm of colon [facility] Start: 09-06-2024 Medicare Annual Well ness (AWV) Medicare Annual Wellness (AWV) [facility] Start: 11-07-2023 End: 11-07-2023 Patient encounter procedure 11/07/2023 2:30 PM EST Office Visit [facility] [address] [place] [address] Shaikh Denis MD [address] [place] [id number] [facility] Start: 10-17-2023 End: 10-17-2023 Patient encounter procedure 10/17/2023 10:15 AM EST Office Visit [facility] [address] [place] [phone] Shaikh Denis MD [address] [place] [phone] Arrived [facility] Comment on above: Arrived Start: 1945 Screening for malign ant neoplasm of colon [facility] Payers Date Payer Category Payer Private Health Insurance [id number] 2023 Self-pay [id number] 2023 Managed Care HMO (unspecified) OSEI FRANZ [id number] 2023-Present [address] [place] [address] HMO [id number] 2022 Private Health Insurance 2007 Medicare 1959 Medicare [id number] 1959 Private Health Insurance [facility] [id number] 1945 Unknown [id number] 2.16.840.1.567685.3.579.2. 647 1945 Unknown [id number] 2.16.840.1.257704.3.579.2. 727 1945 Unknown [id number] 2.16.840.1.569344.3.579.2. 593 1945 Unknown [id number] 2.16.840.1.943597.3.579.2. 593 1945 Unknown [id number] 2.16.840.1.659461.3.579.2. 593 1945 Unknown [id number] 2.16.840.1.148540.3.579.2. 593 1945 Unknown [id number] 2.16.840.1.424195.3.579.2. 593 1945 Unknown [id number] 2.16.840.1.265222.3.579.2. 593 1947 Unknown [id number] 2.16.840.1.138810.3.579.2. 593 1947 Unknown [id number] 2.16.840.1.901028.3.579.2. 593 1947 Unknown [id number] 2.16.840.1.156975.3.579.2. 593 1945 Unknown [id number] 2.16.840.1.495587.3.579.2. 593 1947 Unknown [id number] 2.16.840.1.597036.3.579.2. 593 1947 Unknown [id number] 2.16.840.1.948895.3.579.2. 593 1947 Unknown [id number] 2.16.840.1.754934.3.579.2. 593 1947 Unknown [id number] 2.840.1.286564.3.579.2. 593 1947 Unknown [id number] 2.840.1.158480.3.579.2. 593 1947 Unknown [id number] 2.840.1.760613.3.579.2. 593 1947 Unknown [id number] 2.840.1.648592.3.579.2. 593 1947 Unknown [id number] .840.1.488490.3.579.2. 593 1947 Unknown [id number] .840.1.680574.3.579.2. 593 1947 Unknown [id number] .840.1.255427.3.579.2. 593 1947 Unknown [id number] 2.840.1.395144.3.579.2. 593 1947 Unknown [id number] 2.16.840.1.826199.3.579.2. 593 1947 Unknown [id number] 2.16.840.1.116534.3.579.2. 593 1947 Unknown [id number] 2.840.1.527662.3.579.2. 593 1947 Unknown [id number] 2.16.840.1.087280.3.579.2. 593 1947 Unknown [id number] 2.16.840.1.907718.3.579.2. 593 1947 Unknown [id number] 2.16.840.1.860013.3.579.2. 196 1945 Unknown [id number] 2.16.840.1.389289.3.579.2. 196 1945 Unknown [id number] 2.16.840.1.279953.3.579.2. 1259 1945 Unknown [id number] 2.16.840.1.548580.3.579.2. 1259 Medicare Medicare Outpatient [id number] 1A [id number] Unknown [facility] [id number] Unknown [id number] 2.16.840.1.319735.3.579.2. 531 Unknown [id number] 2.16840.1.889812.3.579.2. 531 Unknown [id number] 2.16840.1.671521.3.579.2. 531 Social History Date Type Detail Facility Start: 08-30-2023 End: 09-06-2023 Sex Assigned At [facility] Start: 1945 Sex Assigned At Female [facility] Start: 08-18-2023 [facility] History of tobacco use Current smoker [facility] History of tobacco use Cigarette Smoker [facility] Start: 09-02-2023 Alcohol intake Not Asked [facility] Start: 08-30-2023 End: 09-06-2023 History of Social function [facility] Within the last year , have you been afraid of your partner or ex-partner? No [facility] How often do you att end scientologist or jewish services? Patient refused [facility] Do you belong to any clubs or organizations such as scientologist groups, unions, fraternal or athletic groups, or [...] Start: 08-18-2023 Alcohol Comment (Audit-C) : Negative [facility] Start: 1945 Sex Assigned At Not on file [facility] Clinical Notes 08-26-2021 to 07-05-2023 Note Date & Type Note Facility 07-05-2023 Note [facility] Consult Note Reason for visit: Afib. [...] sick sinus syndrome s/p PPM 10/2020 dual-chamber [employer], COPD, mild CAD s/p cardiac cath [...] could not afford DOAC. Patient underwent dual-chamber [employer] pacemaker placement on 10/13/2020. On subsequent [...] both knees Hypocalcemi (more content not included)... [facility] 03-01-2023 Note [place] [facility] Consult Note Reason for visit: 6-month [...] sick sinus syndrome s/p PPM 10/2020 dual-chamber [employer], COPD, mild CAD s/p cardiac cath [...] could not afford DOAC. Patient underwent dual-chamber [employer] pacemaker placement on 10/13/2020. On subsequent [...] KNEE ARTHROPLASTY Bi (more content not included)... [facility] 12-13-2022 Note [id number] #1.00CD:127 [facility] 12-08-2022 Note Cardiology Clinic No te Subjective Breann Starks is a 77 y.o. year old female patient with past medical history of paroxysmal supraventricular tachycardia status post ablation x3 2005, atrial fibrillation on warfarin and flecainide, sick sinus syndrome status post pacemaker, hypertension, COPD, coronary angiography in 2010 which showed mild CAD, seen in posthospitalization follow-up from [facility]. She was seen by cardiology in [...] Former Years: 43.00 Types: Cigarettes Quit date: 1999 Years since quittin.2 Smokeless tobacco: Never Substance [...] dysfunction. Left atri (more content not included)... [facility] 11-18-2022 Note Obesity is slightly improving -She was to 255 pounds last visit and today she is 241 pounds -Advised to continue working on weight loss and lifestyle changes [facility] 11-18-2022 Note - S/p PPM [employer] -We will have her scheduled for device check [facility] 11-18-2022 Note -device check in may <1% AF, had 1 mode switch which lasted 6 seconds -will have her get device check to assess AF burden -[id number] 3 -Continue Xarelto 20 mg daily, continue propafenone to 25 mg 3 times a day [facility] 11-18-2022 Note Hypertension is stab le -ct medications: aldactone, verapamil, lasix 20mg -managed per PCP [facility] 11-18-2022 Note Coronary artery dise ase is stable -no CP or LEA -last cath 2010, mild disease no PCI / stent -continue medications [facility] 11-10-2022 Note Patient is here toda y for a 6 month follow up Review of Systems Constitutional: Positive for weight loss. Cardiovascular: Positive for palpitations. All other systems reviewed and are negative. [facility] 11-10-2022 Note [place] [facility] Consult [place] Reason for visit: 6-month follow-up HPI: Breann Starks is a 76 y.o. year old with past medical history of A-fib, atrial tachycardia s/p ablation 2005, sick sinus syndrome s/p PPM 10/2020 dual-chamber [employer], COPD, mild CAD s/p cardiac cath [...] could not afford DOAC. Patient underwent dual-chamber [employer] pacemaker placement on 10/13/2020. On subsequent [...] Not on f (more content not included)... [facility] 10-07-2021 Evaluation note Encounter Date Diagnosis Assessment Notes Sep, LOJA (nonalcoholic steatohepatitis ) (ICD-10 - K75.81) OBTAIN FIBROSURE RESULTS FROM [facility] ON RESULTS PT ENCOURAGED WEIGHT LOSS RTO ONE YEAR WITH LABS ANNUALLY Sep, Unspecified cirrhosis of liver (ICD-10 - K74.60) [facility] Other 12-15-2021 Evaluation note* Encounter Date Diagnosis Assessment Notes Treatment Notes Treatment Clinical Notes Aug, Nonalcoholic steatohepatitis (LOJA) (ICD-10 - K75.81) RTO 6-8 WEEKS Aug, Unspecified cirrhosi s of liver (ICD-10 - K74.60) Aug, Morbid obesity (ICD- 10 - E66.01) [facility] Other Evaluation noteNo assessment information available [facility] Work Phone: History general Narrative - [...] Surgical History pacemaker Hospitalization History see above [facility] Other Summary Purpose Family History No Family [...] and content) DATE CREATED AUTHOR 10/23/2021 [facility] DATE CREATED AUTHOR AUTHOR'S ORGANIZ ATION 01/22/2022 [facility] DATE CREATED AUTHOR AUTHOR'S ORGANIZ ATION 01/14/2023 [facility] DATE CREATED AUTHOR AUTHOR'S ORGANIZ ATION 02/18/2023 [facility] DATE CREATED AUTHOR AUTHOR'S ORGANIZ ATION 05/03/2023 [facility] DATE CREATED AUTHOR AUTHOR'S ORGANIZ ATION 07/10/2023 [facility] DATE CREATED AUTHOR AUTHOR'S ORGANIZ ATION 10/17/2023 [facility] EPIC DATE CREATED AUTHOR AUTHOR'S ORGANIZ ATION 11/27/2023 [facility] REASON FOR VISIT (unrecogniz ed section [...] October 11, 2023 End: October 11, 2023 Ventilating Engineer Relationship Specialty Start Date End Date Shaikh [...] BE BASED ON THE PRIMARY CLINICAL RECORDS. [employer] [facility]. provides no warranty or guarantee of the accuracy or completeness of information in this document.
[2023-12-05 08:19] VITALS: BP 134/62; PULSE 60; RESP 16; TEMP 36.5; O2SAT 96
[2023-12-05 09:10] VITALS: BP 147/63; PULSE 66; RESP 18; O2SAT 96
[2023-12-05 09:12] VITALS: BP 179/78; PULSE 60; RESP 18; O2SAT 96
[2023-12-05] MEDS: BUPIVACAINE HCL 0.25% PF 25 MG/10 ML VIAL INJ (09:12)
[2023-12-05] MEDS: IOHEXOL 240 MG/ML - 10 ML VIAL 24 MG INJ (09:12)
[2023-12-05] MEDS: 0.9 % SODIUM CHLORIDE 10 ML INJ (09:12)
[2023-12-05] MEDS: TRIAMCINOLONE ACETONIDE 40 MG/ML VIAL 80 MG INJ (09:12)
--- NOTE | 2023-12-05 09:15 | W.PM.PROCNOT ---
Date of procedure: 12/05/23 Pre-op diagnosis: Lumbar stenosis with neurogenic claudication Post-op diagnosis: same as pre-op Procedure: Procedure: Bilateral L4-5 transforaminal epidural steroid injection Medications: Bupivacaine 0.25% 2cc, lidocaine 2% 1cc, kenalog 80mg The patient was seen and examined in the preoperative holding area.? Informed consent was obtained and placed on the chart.? Patient was brought to the medical procedure unit and placed in the prone position where a timeout was completed verifying the correct patient, procedure site, position, and planned special equipment using sterile aseptic technique.? Under direct fluoroscopic visualization a 25-gauge Quincke tipped spinal needle was advanced at level left L4-5 to the designated neural foramen where contrast dye was injected to show adequate spread.? There was no evidence of vascular or adverse uptake.? Epidural spread was appreciated.? The above-mentioned injectate was then placed in a 1.5 mL aliquot preceded by negative aspiration.? The needle was removed. The same procedure, at the same level, was completed on the opposite side. ? Patient was taken to the postprocedural recovery area and monitored for an appropriate length of time before found suitable for discharge in the accompaniment of a responsible adult.? Anesthesia: Local Surgeon: Miguel Murphy Pathology: none sent Condition: stable Disposition: no change
[2023-12-05] MEDS: LIDOCAINE HCL 2% PF 100 MG/5 ML VIAL 2 ML INJ (12:53)
== END 2023-12-05 09:20 | disposition home or self-care (01) ==
PROVIDERS: PCP Internal Medicine; Visit Provider Anesthesiology
DX: M48.062 Spinal stenosis, lumbar region with neurogenic claudication (principal)
CPT/HCPCS: 64483; Q9966

== ENCOUNTER 2023-12-12 12:49 | Outpatient (OUT) | payer MEDICARE, SELFPAY ==
--- NOTE | 2023-12-12 12:53 | XR_ITS ---
The [address] [address] Patient Name: MAXIMUS HERRMANN MRN: [id number] date: 1945 Sex: F Assigned Patient Location: [facility] Current Patient Location: [facility] Accession/Order Number: [id number] Exam Date: 12/12/2023 12:57 Report Date: 12/12/2023 13:46 At the request of: RENÉE BARRY Procedure: XR DEXA axial skeleton EXAMINATION: XR DEXA axial skeleton HISTORY: Asymptomatic menopausal state Z78.0 COMPARISON: No relevant comparison available. TECHNIQUE: Dual-energy X-ray absorptiometry (DXA) was performed. FINDINGS: SPINE ANALYSIS: Average bone mineral density is 1.216 g/cm2. T-score (standard deviation relative to young adult mean): 0.3 . HIP ANALYSIS: Lowest bone mineral density is within the right femoral neck, 0.912 g/cm2. T-score (standard deviation relative to young adult mean): -0.9 . XR/XR DEXA axial skeleton IMPRESSION: World [employer] Organization Classification: Normal - Low Fracture Risk Electronically authenticated by: PAULA BROWN Date: 12/12/2023 13:46
--- OUTSIDE RECORDS SUMMARY | 2023-12-12 13:05 | XMS_ITS | CCD ---
Author Organization [facility] Care Team Providers Care Strategy Planning Consultant Name Role Phone ZANE MCGUIRE Admitting Unavailable YANCY MAHAN Referring Unavailable LUISANA FISHER Primary Care Unavailable ZANE MCGUIRE Attending Unavailable YANCY MAHAN Surgeon Unavailable SC Procedure Practitioner UnavailHong Ambrose Unavailable Barbara Esposito [...] Herbert Primary Care Unavailable FISHER ., DR LUSIANA Herbert Attending Unavailable FISHER ., DR LUISANA [...] Admitting Unavailable RIVER ., KAYLEY Attending Unavailable PICO RIVERA, DR HONG Morgan Consulting Unavailable FISHER ., [...] Provider MD Janice Denis Primary Care Provider [phone] THANG Clement Attending Provider [phone] SHAIKH DENIS Attending Unavailable SHAIKH DENIS Attending Unavailable Shaikh Denis MD Primary Care Provider [phone] Claire Clement Admitting Unavailable Claire Clement Attending Unavailable Shaikh Denis Primary Care Unavailable Kayley Reeder Admitting Unavailable Kayley Reeder Attending Unavailable Shaikh Denis Primary Care Unavailable Claire Clement Admitting Unavailable Claire Clement Attending Unavailable Shaikh Denis Primary Care Unavailable Allergies Allergy Classification Reported Allergen(s) Allergy Type Date of Onset Reaction(s) Facility (1 source) nov; Translations: [novacaine] Propensity to adverse reactions (disorder) 2 [facility] Repository (2 sources) NSAIDs Propensity to adverse reactions HEART ISSUES Ondore Other (1 source) meloxicam; Translations: [Mobic] Drug Allergy [facility]ository (1 source) No Known Medication Allergies; Translations: [No Known Medication Allergies] Propensity to adverse reactions (disorder) [facility] (1 source) Digoxin; Translations: [DIGOXIN] Drug Allergy 2 [facility] Repository (1 source) Adhesive agent Drug allergy (disorder) 4 [facility] Repository (1 source) NSAIDs Drug allergy (disorder) 4 [facility] Repository Medications Current Medications Medication Drug [...] 0 10/13/2023 Active take 1 capsule by [facility] every twenty-four hours Omeprazole 40 MG 1 [...] 02/14/2023 02/14/2024 Active take 1 capsule by [facility] every twenty-four hours Verapamil HCl ER [...] disease (4 sources) Atherosclerotic heart disease of [place] coronary artery without angina pectoris; Translations: [Coronary [...] Onset: 3 Episodic Other aftercare (1 source) [facility] (current) use of anticoagulants; Translations: [[facility] CURRNT USE 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] Onset: 3 Episodic Other aftercare (1 source) Other terminal manager (current) drug therapy; Translations: [OTH [facility] CURRENT DRUG THERAPY] Onset: 3 Episodic Other [...] 11-16-2023 XR lumbar spine 6V w bending [facility] [place] [address] [place] [address] XRay Report Signed Patient: Breann Starks MR#: [id number] 171 : 1945 Acct:[id number] Age/Sex: 77 / F ADM Date: 11/16/23 Loc: Room: Type: [facility] Attending Dr: Kayley PASCALC Copies to: THANG [...] Benton Jr., D.O.11/16/2023 4:37 PM Dictation Location: [place] [address] Transcribed By: [facility] 11/16/23 1637 Dictated By: Francisco J Benton Jr, DO 11/16/23 1636 Signed By: 11/16/23 1637 Normal [facility] MR lumbar spine wo [place] MR lumbar spine wo con [facility] [place] [address] [place] [address] XRay Report Signed Patient: Breann Starks MR#: [id number] 171 : 1945 Acct:[id number] Age/Sex: 77 / F ADM Date: 10/11/23 Loc: MR [facility]: [facility]: Claire DESIR Copies to: THANG Porter Ordering Provider: THANG Porter Date of Service: 10/11/23 MR/MR lumbar spine wo con: LUMBAR RADICULPATHY ([id number]) XR/XR pre/post mri xray: LUMBAR RADICULPATHY CLINICAL [...] Eleanor Reece M.D.10/11/2023 4:10 PM Dictation Location: [place] [address] Transcribed By: [facility] 10/11/23 161 Dictated By: Eleanor Reece MD 10/11/23 1133 Signed By: 10/11/23 1610 [facility] Office Visiton 07-05-2023 Follow-up visit [id number] Kj Starksjoselito Mckenzie 1945 F Date Provider Department Center 07/05/2023 YANCY IVERSON AMISH Ramírez [facility] Family History Adopted: Yes Family history unknown: Yes Family Status - Relation Status Age at Mother Father Level of Service:07263 SC OFFICE/OUTPATIENT ESTABLISHED LOW MDM 20-29 MIN Normal [facility] Office Visiton 03-01-2023 Follow-up visit [id number] Kj Starksjoselito Mckenzie 1945 F Date Provider Department Center 03/01/2023 YANCY IVERSON AMISH Ramírez [facility] Family History Adopted: Yes Family history unknown: Yes Family Status - Relation Status Age at Mother Father Level of Service:65473 SC OFFICE/OUTPATIENT ESTABLISHED MOD MDM 30-39 MIN Reason for Visit and Comments: Follow-up [555089] - 3 month follow up [facility] XR LSPINE W_OBLS AND FLEX_EX Ton [...] by: PAULA DELGADO Date: 2023-01-31 11:34 Normal [facility] Physician Referralon 023 Physician Referral [id number] #1.00CD:127 [facility] Ambulatory Visit Summaryon 0 01-11-2023 Ambulatory [...] Someone Will Contact You Regarding These Appointments [facility] External Ambulatory Referral, Patient choice/referral by family/friend, Pain Management, [facility] Pain managment., 01/11/23 11:02:00 EDT, Sciatica of left side [facility] Ambulatory Visit Summary BREANN STARKS :1945 [...] longer receiving treatment for. Depression Migraines [facility] Family Medicine Office/Clini c Noteon 01-11-2023 Family Medicine Office/Clinic Note HPI Staff Breann is a 77 year old female who presents today to [facility]. Establish Care: History: A fib, COPD, OA of LS and bilateral knees, PSVT, fatty liver, cervical radiculopathy, pacemaker, cirrhosis of the liver History of specialists: Dr. Gonzales, Dr. Kaur-Cardiology, Dr. Martin- chiropractor, [facility] Last provider: Elizabeth Winter recent labs: Jul 2022 Health Maintenance UTD: Colonoscopy: 2012, pt is due Mammogram: December 2022 at [facility] which was normal Pelvic/Pap: pt had [...] longer taking that. will refer back to [facility]. All questions answered. RTC as needed Ordered: methylPREDNISolone, = 1 packet(s), Oral, As Directed, as directed on package labeling, X 6 day(s), # 21 tab(s), Refills(s) 0, Pharmacy: [facility]/pharmacy #[id number], 141, cm, 01/11/23 10:30:00 EDT, Height/Length Dosing, 107.2, kg, 01/11/23 10:30:00 EDT, Weight Dosing [facility] External Ambulatory Referral 2. Myalgia (M79.10: Myalgia, unspecified site) medrol dose pack ordered Ordered: methylPREDNISolone, = 1 packet(s), Oral, As Directed, as directed on package labeling, X 6 day(s), # 21 tab(s), Refills(s) 0, Pharmacy: [facility]/pharmacy #[id number], 141, cm, 01/11/23 10:30:00 EDT, Height/Length Dosing, 107.2, kg, 01/11/23 10:30:00 EDT, Weight Dosing [facility] External Ambulatory Referral BMI 50.0-59.9, adult (Z68.43: [...] Oral, D (more content not included)... [facility] Comment on above: Result Comment: Elec tronically Signed By: Barbara Dai\.br\Date and Time Signed: 01/11/23 11:12 EDT Lab Reportson 12-22-2022 Lab Reports [id number] #1.00CD:127 [facility] 36on 12-17-2022 36 Pt has chose to stop taking atorvastatin Normal [facility] 36on 12-16-2022 36 She was started d/t elevated troponin with chest pain when she was admitted. I believe she was recommended outpatient ischemic evsue bowers saw her on follow up, not sure if stress was ordered or determined not needed, I would follow up with her regarding it. Normal [facility] LIPID PROFILEon 12-16-2022 CHOL-HDL RATIO NORM SEE BELOW Normal [facility] Comment on above: Result Comment: 3.3 - 4.4 LOW RISK 4.4 - 7.1 AVERAGE RISK 7.1 - 11.0 MODERATE RISK >11.0 HIGH RISK Performed By: #### L IPID ####[facility] [address] [place], [place] [address]Qs. Heavenlan Smith Cholesterol [Mass/Vol] 105 mg/dL Normal <=200 [facility] Comment on above: Performed By: #### L IPID ####[facility] [address] [place], [place] [address]Ej. Heavenlan Smith Cholesterol in HDL [Mass/Vol] 48 mg/dL Normal 40-60 [facility] Comment on above: Performed By: #### L IPID ####[facility] [address] [place], [place] [address]Gq. Heavenlan Smith Cholesterol in LDL [Mass/Vol] 48.2 mg/dL Normal [facility] Comment on above: Performed By: #### L IPID ####[facility] [address] [place], [place] [address]Xn. Heavenlan Smith Cholesterol.total/Chol esterol in HDL [Mass ratio] 2.2 {ratio} Normal [facility] Comment on above: Performed By: #### L IPID ####[facility] [address] [place], [place] [address]Lm. Yilan Smith HDL NORMAL > or = 60 mg/dl - LOW CARDIOVASCULAR RISK <40 mg/dl - HIGH CARDIOVASCULAR RISK Normal [facility] Comment on above: Performed By: #### L IPID ####[facility] [address] [place], [place] [address]Aa. Heavenlan Smith LDL CALC NORMAL SEE BELOW Normal [facility] Comment on above: Result Comment: <100 mg/dl OPTIMAL 100 - 129 mg/dl NEAR OR ABOVE OPTIMAL 130 - 159 mg/dl BORDERLINE HIGH 160 - 189 mg/dl HIGH >190 mg/dl VERY HIGH Performed By: #### L IPID ####[facility] [address] [place], [place] [address]Vd. Erasmo Smith Triglyceride [Mass/Vol] 44 mg/dL Normal <=150 [facility] Comment on above: Performed By: #### L IPID ####[facility] [address] [place], [place] [address]Hh. Erasmo Smith VLDL CALC 8.8 mg/dL Normal [facility] Comment on above: Performed By: #### L IPID ####[facility] [address] [place], [place] [address]Gr. Erasmo Smith Echocardiographyon Echocardiography [id number] #1.00CD:127 [facility] Correspo ndenceon 12-13-2022 Outside [facility] Correspondence [id number] #1.00CD:127 [facility] Correspondence [id number]# 1.00CD:127 [facility] Office Visiton 12-08-2022 Follow-up visit [id number] Breann Starks 1945 F Date Provider Department Center 12/08/2022 [id number] KAUR [facility] Family History Adopted: Yes Family history unknown: Yes Family Status - Relation Status Age at Mother Father Level of Service:25462 SC OFFICE/OUTPATIENT ESTABLISHED MOD MDM 30-39 MIN Reason for Visit and Comments: Follow-up [704564] - Discuss stress test. Unable to come up with answers to whats going on Normal [facility] CULTURE BLOODon 12-04-2022 Microscopic examination of [...] Trimethoprim/Sulfame thoxazole <=20 S F Normal [facility] Comment on above: Performed By: #### B LDCX1 ####[facility] [address] [place] [address]Dr. Erasmo Smith BNPon 12-03-2022 Natriuretic peptide B (Bld) [Mass/Vol] 413.0 pg/mL Normal <=1,800.0 [facility] Comment on above: Performed By: #### B INVESTMENT BANKING ANALYST #### [facility] [address] [place] [address] [address] Erasmo Smith CBC AUTO DIFFon 12-03-2022 BASO # 0.0 103/ul Normal 0.0-0.1 [facility] Comment on above: Performed By: #### C BC ####[facility] [address] [place], [place] [address]DrMeena Smith Basophils/100 WBC (Bld) 0.2 % Normal 0.2-2.0 [facility] Comment on above: Performed By: #### C BC ####[facility] [address] [place], [place] [address]DrMeena Smith EO # 0.4 103/ul Normal 0.0-0.7 [facility] Comment on above: Performed By: #### C BC ####[facility] [address] [place] [address]Dr. Erasmo Smith Eosinophils/100 WBC (Bld) 2.1 % Normal 0.9-7.0 [facility] Comment on above: Performed By: #### C BC ####[facility] [address] [place], [place] [address]DrMeena Smith Erythrocyte distribution width (RBC) [Ratio] 17.2 % Critically high 11.0-15.0 [facility] Comment on above: Performed By: #### C BC ####[facility] [address] [place] [address]Dr. Erasmo Smith Hematocrit (Bld) [Volume fraction] 29.2 % Critically low 36.0-48.0 [facility] Comment on above: Performed By: #### C BC ####[facility] [address] [place] [address]DrMeena Smith Hemoglobin (Bld) [Mass/Vol] 9.5 g/dL Critically low 12.0-16.0 [facility] Comment on above: Performed By: #### C BC ####[facility] [address] [place], [place] [address]DrMeena Smith IG # 0.13 10e3/ul Critically high 0.00-0.03 [facility] Comment on above: Performed By: #### C BC ####[facility] [address] [place], [place] [address]DrMeena Smith IG % 0.8 % Critically high 0.0-0.5 [facility] Comment on above: Performed By: #### C BC ####[facility] [address] [place], [place] [address]DrMeena Smith LYMPH # 1.8 103/ul Normal 1.2-3.8 [facility] Comment on above: Performed By: #### C BC ####[facility] [address] [place], [place] [address]DrMeena Smith Lymphocytes/100 WBC (Bld) 10.3 % Critically low 20.5-60.0 [facility] Comment on above: Performed By: #### C BC ####[facility] [address] [place], [place] [address]DrMeena Smith MANUAL DIFF REQ NO Normal [facility] Comment on above: Performed By: #### C BC ####[facility] [address] [place], [place] [address]DrMeena Smith MCH (RBC) [Entitic mass] 25.7 pg Critically low 26.7-34.0 [facility] Comment on above: Performed By: #### C BC ####[facility] [address] [place] [address]DrMeena Smith MCHC (RBC) [Mass/Vol] 32.5 g/dL Normal 29.9-35.2 [facility] Comment on above: Performed By: #### C BC ####[facility] [address] [place] [address]DrMeena Smith MCV (RBC) [Entitic vol] 79.1 fL Critically low 81.0-99.0 [facility] Comment on above: Performed By: #### C BC ####[facility] [address] [place] [address]DrMeena Smith MONO # 1.5 103/ul Critically high 0.3-0.8 [facility] Comment on above: Performed By: #### C BC ####[facility] [address] [place], [place] [address]DrMeena Smith Monocytes/100 WBC (Bld) 8.7 % Normal 1.7-12.0 [facility] Comment on above: Performed By: #### C BC ####[facility] [address] [place], [place] [address]DrMeena Smith NEUT # 13.4 103/ul Critically high 1.4-6.5 [facility] Comment on above: Performed By: #### C BC ####[facility] [address] [place], [place] [address]DrMeena Smith Neutrophils/100 WBC (Bld) 77.9 % Critically high 43.0-75.0 [facility] Comment on above: Performed By: #### C BC ####[facility] [address] [place], [place] [address]DrMeena Smith Platelet mean volume (Bld) [Entitic vol] 9.3 fL Critically low 9.5-13.5 [facility] Comment on above: Performed By: #### C BC ####[facility] [address] [place], [place] [address]DrMeena Smith PLT 205 103/ul Normal 150-450 [facility] Comment on above: Performed By: #### C BC ####[facility] [address] [place], [place] [address]Dr. Erasmo Smith RBC 3.69 106/ul Critically low 4.20-5.40 [facility] Comment on above: Performed By: #### C BC ####[facility] [address] [place] [address]DrMeena Smith WBC 17.2 103/ul Critically high 4.0-11.0 [facility] Comment on above: Performed By: #### C BC ####[facility] [address] [place] [address]Dr. Erasmo Smith MAGNESIUMon 12-03-2022 Magnesium [Mass/Vol] 1.9 mg/dL Normal 1.8-2.4 [facility] Comment on above: Performed By: #### B INVESTMENT BANKING ANALYST #### [facility] [address] [place] [address] [address] Erasmo Smith Orders Onlyon 12-03-2022 Orders Only [id number] KevinjjBreann T 1945 F Date Provider Department Center 12/03/2022 CECILIO CALLAWAY [facility] Family History Family history unknown: Yes Normal [facility] PROF 14(COMP METB)on 023 Albumin [Mass/Vol] 2.6 g/dL Critically low 3.4-5.0 [facility] Comment on above: Performed By: #### B INVESTMENT BANKING ANALYST #### [facility] [address] [place] [address] [address] Erasmo Smith Albumin/Globulin [Mass ratio] 0.6 {ratio} Normal [facility] Comment on above: Performed By: #### B INVESTMENT BANKING ANALYST #### [facility] [address] [place] [address] [address] Erasmo Smith ALP [Catalytic activity/Vol] 123 U/L Critically high 46-116 [facility] Comment on above: Performed By: #### B INVESTMENT BANKING ANALYST #### [facility] [address] [place] [address] [address] Erasmo Smith ALT [Catalytic activity/Vol] 28 U/L Normal 14-59 [facility] Comment on above: Performed By: #### B INVESTMENT BANKING ANALYST #### [facility] [address] [place] [address] [address] Erasmo Smith Anion gap [Moles/Vol] 9.4 mmol/L Normal [facility] Comment on above: Performed By: #### B INVESTMENT BANKING ANALYST #### [facility] [address] [place] [address] [address] Erasmo Smith AST [Catalytic activity/Vol] 21 U/L Normal 15-37 [facility] Comment on above: Performed By: #### B INVESTMENT BANKING ANALYST #### [facility] [address] [place] [address] Dr. Erasmo Smith Bilirubin [Mass/Vol] 0.3 mg/dL Normal 0.2-1.0 [facility] Comment on above: Performed By: #### B INVESTMENT BANKING ANALYST #### [facility] [address] [place] [address] Dr. Erasmo Smith Calcium [Mass/Vol] 8.3 mg/dL Critically low 8.5-10.[address] [facility] Comment on above: Performed By: #### B INVESTMENT BANKING ANALYST #### [facility] [address] [place] [address] Dr. Erasmo Smith Chloride [Moles/Vol] 105 mmol/L Normal 98-107 [facility] Comment on above: Performed By: #### B INVESTMENT BANKING ANALYST #### [facility] [address] [place] [address] [address] Erasmo Smith CO2 [Moles/Vol] 27.1 mmol/L Normal 21.0-32.0 [facility] Comment on above: Performed By: #### B INVESTMENT BANKING ANALYST #### [facility] [address] [place] [address] Dr. Erasmo Smith Creatinine [Mass/Vol] 0.55 mg/dL Normal 0.55-1.02 [facility] Comment on above: Performed By: #### B INVESTMENT BANKING ANALYST #### [facility] [address] [place] [address] Dr. Erasmo Smith EGFR-AF ANGOLAN >60 Normal >=60 [facility] Comment on above: Performed By: #### B INVESTMENT BANKING ANALYST #### [facility] [address] [place] [address] [address] Erasmo Smith EGFR-NON AF ANGOLAN >60 Normal >=60 [facility] Comment on above: Performed By: #### B INVESTMENT BANKING ANALYST #### [facility] [address] [place] [address] [address] Erasmo Smith Globulin (S) [Mass/Vol] 4.0 g/dL Normal [facility] Comment on above: Performed By: #### B INVESTMENT BANKING ANALYST #### [facility] [address] [place] [address] [address] Erasmo Smith Glucose [Mass/Vol] 132 mg/dL Critically high 74-106 [facility] Comment on above: Performed By: #### B INVESTMENT BANKING ANALYST #### [facility] [address] [place] [address] [address] Erasmo Smith Potassium [Moles/Vol] 3.5 mmol/L Normal 3.5-5.1 [facility] Comment on above: Performed By: #### B INVESTMENT BANKING ANALYST #### [facility] [address] [place] [address] [address] Erasmo Smith Protein [Mass/Vol] 6.6 g/dL Normal 6.4-8.2 [facility] Comment on above: Performed By: #### B INVESTMENT BANKING ANALYST #### [facility] [address] [place] [address] [address] Erasmo Smith Sodium [Moles/Vol] 138 mmol/L Normal 136-145 [facility] Comment on above: Performed By: #### B INVESTMENT BANKING ANALYST #### [facility] [address] [place] [address] [address] Erasmo Smith Urea nitrogen [Mass/Vol] 24.0 mg/dL Critically high 7.0-18.0 [facility] Comment on above: Performed By: #### B INVESTMENT BANKING ANALYST #### [facility] [address] [place] [address] [address] Erasmo Smith Urea nitrogen/Creatinine [Mass ratio] 43.6 mg/mg Normal [facility] Comment on above: Performed By: #### B INVESTMENT BANKING ANALYST #### [facility] [address] [place] [address] [address] Erasmo Smith PROTIMEon 12-03-2022 INR Coag (PPP) [Relative time] 4.41 {INR} Critically high [facility] Comment on above: Performed By: #### C MREP #### [facility] [address] [place] [address] [address] Erasmo Smith INR GUIDELINES SEE BELOW Normal [facility] Comment on above: Result Comment: ABNER RED INR: 2.0 - 3.0 CONDITIONS NOT LISTED BELOW 2.5 - 3.5 FOR PROSTHETIC HEART VALVE REPLACEMENT 2.5 - 3.5 RECURRENT THROMBOSIS Performed By: #### C MREP #### [facility] [address] [place] [address] [address] Erasmo Smith PT Coag (PPP) [Time] 43.0 s Critically high 9.0-11.6 [facility] Comment on above: Performed By: #### C MREP #### [facility] [address] [place] [address] [address] Erasmo Smith BLOOD CULTURE ID PANELon A. baumannii Not detected Normal NOT DETECTED [facility] Comment on above: Performed By: #### B CID2 ####[facility] [address] [place], [place] [address]DrMeena Smith Bacteriodes fragilis Not detected Normal NOT DETECTED [facility] Comment on above: Performed By: #### B CID2 ####[facility] [address] [place] [address]Dr. Erasmo Smith BCID CONTROLS PASSED Normal [facility] Comment on above: Performed By: #### B CID2 ####[facility] [address] [place] [address]Dr. Erasmo Smith BCIDBTHD BLOOD CULTURE BOTTLE INFORMATION Normal [facility] Comment on above: Performed By: #### B CID2 ####[facility] [address] [place] [address]Dr. Erasmo Smith BCIDHD1 ANTIMICROBIAL RESISTANCE GENES Normal [facility] Comment on above: Performed By: #### B CID2 ####[facility] [address] [place] [address]Dr. Yiean Smith BCIDHD2 SEE BELOW Normal [facility] Comment on above: Result Comment: Note : Antimicrobial resitance can occur via multiple mechanisms. A Not Detected result for the [employer] antomicrobial resistance gene assays does not indicate antimicrobial susceptibility. Subculturing is required for species identification and susceptibility testing of isolates. Performed By: #### B CID2 ####[facility] [address] [place], [place] [address]Dr. Erasmo Smith BCIDHD3 Positive Normal [facility] Comment on above: Performed By: #### B CID2 ####[facility] [address] [place], [place] [address]Dr. Erasmo Smith BCIDHD4 Negative Normal [facility] Comment on above: Performed By: #### B CID2 ####[facility] [address] [place], [place] [address]Dr. Erasmo Smith BCIDHD5 YEAST Normal [facility] Comment on above: Performed By: #### B CID2 ####[facility] [address] [place], [place] [address]Dr. Erasmo Smith Bottle Set: Set 1 Normal [facility] Comment on above: Performed By: #### B CID2 ####[facility] [facility] [address]mlkmzv[address] [place], [place] [address]Dr. Erasmo Smith Bottle: Anaerobic Normal [facility] Comment on above: Performed By: #### B CID2 ####[facility] Phcxiolxmb[address] [place], [place] [address]Dr. Yiean Smith C. neoformans/gattii Not detected Normal NOT DETECTED [facility] Comment on above: Performed By: #### B CID2 ####[facility] Deyphaiyxj26[address] [place], [place] [address]Dr. Yiean Smith Naye albicans Not detected Normal NOT DETECTED [facility] Comment on above: Performed By: #### B CID2 ####[facility] Ctvuhhuakd[address] [place], [place] [address]Dr. Yiean Smith Naye auris Not detected Normal NOT DETECTED [facility] Comment on above: Performed By: #### B CID2 ####[facility] [address] [place] [address]Dr. Erasmo Smith Naye glabrata Not detected Normal NOT DETECTED [facility] Comment on above: Performed By: #### B CID2 ####[facility] Ess[address]mpyv[address] [place] [address]Dr. Erasmo Smith Naye Krusei Not detected Normal NOT DETECTED [facility] Comment on above: Performed By: #### B CID2 ####[facility] W[address]pslsoqw[address] [place] [address]Dr. Erasmo Smith Naye Parapsilosis Not detected Normal NOT DETECTED [facility] Comment on above: Performed By: #### B CID2 ####[facility] Qzmdwgtsau[address] [place], [place] [address]Dr. Erasmo Smith Naye Tropicalis Not detected Normal NOT DETECTED [facility] Comment on above: Performed By: #### B CID2 ####[facility] Jdwvzfzipo[address] [place], [place] [address]Dr. Erasmo Smith CTX-M Resistant Gene Not Applicable Normal NOT DETECTE D [facility] Comment on above: Performed By: #### B CID2 ####[facility] Rtngvdplzy[address] [place], [place] [address]Dr. Erasmo Smith E. Cloacae complex Not detected Normal NOT DETECTED [facility] Comment on above: Performed By: #### B CID2 ####[facility] Hvkfiskmca[address] [place], [place] [address]Dr. Erasmo Smith E. faecalis Not detected Normal NOT DETECTED [facility] Comment on above: Performed By: #### B CID2 ####[facility] Rhbzqmqfdo2620[address] [place], [place] [address]Dr. Erasmo Smith E. faecium Not detected Normal NOT DETECTED [facility] Comment on above: Performed By: #### B CID2 ####[facility] Qhqmxdbykm4[address] [place], [place] [address]Dr. Heavenean Smith Enterobacteriaceae Detected Critically abnormal NOT DETECTED [facility] Comment on above: Performed By: #### B CID2 ####[facility] [address] [place] [address]Dr. Erasmo Smith Escherichia coli Detected Critically abnormal NOT DETECTED [facility] Comment on above: Performed By: #### B CID2 ####[facility] Sc[address]uqjcwu[address] [place] [address]Dr. Erasmo Smith H. influenzae Not detected Normal NOT DETECTED [facility] Comment on above: Performed By: #### B CID2 ####[facility] Ddgtrwdutp4565[address] [place], [place] [address]Dr. Erasmo Smith IMP Resistant Gene Not Applicable Normal NOT DETECTED [facility] Comment on above: Performed By: #### B CID2 ####[facility] Qqrmrsdfgz850[address] [place], [place] [address]Dr. Erasmo Smith K. oxytoca Not detected Normal NOT DETECTED [facility] Comment on above: Performed By: #### B CID2 ####[facility] Mniqtoakwc4254[address] [place], [place] [address]Dr. Erasmo Smith K. pneumoniae Not detected Normal NOT DETECTED [facility] Comment on above: Performed By: #### B CID2 ####[facility] Yepuszfkmt347[address] [place], [place] [address]Dr. Erasmo Smith Klebsiella aerogenes Not detected Normal NOT DETECTED [facility] Comment on above: Performed By: #### B CID2 ####[facility] Augfgxblzu6004[address] [place], [place] [address]Dr. Erasmo Smith KPC Resistant Gene Not detected Normal NOT DETECTED [facility] Comment on above: Performed By: #### B CID2 ####[facility] Acobmpiomf[address] [place] [address]Dr. Erasmo Smith List. monocytogenes Not detected Normal NOT DETECTED [facility] Comment on above: Performed By: #### B CID2 ####[facility] Ahfulxhpdo5090[address] [place], [place] [address]Dr. Erasmo Smith Mcr-1 Resistant Gene Not Applicable Normal NOT DETECTE D [facility] Comment on above: Performed By: #### B CID2 ####[facility] Fduezzyjjs[address] [place] [address]Dr. Heavenean Luis mecA/C Not Applicable Normal NOT DETECTED [facility] Comment on above: Performed By: #### B CID2 ####[facility] Akqoilfavv136[address] [place], [place] [address]Dr. Heavenean Luis mecA/C MREJ Not Applicable Normal NOT DETECTED [facility] Comment on above: Performed By: #### B CID2 ####[facility] Afshdbjzxa260[address] [place], [place] [address]Dr. Erasmo Smith N. meningitidis Not detected Normal NOT DETECTED [facility] Comment on above: Performed By: #### B CID2 ####[facility] Lkisadfdrv9745[address] [place], [place] [address]Dr. Erasmo Smith NDM Resistant Gene Not Applicable Normal NOT DETECTED [facility] Comment on above: Performed By: #### B CID2 ####[facility] Ahkoyssfwk2704[address] [place], [place] [address]Dr. Erasmo Smith Oxa-48-like Not Applicable Normal NOT DETECTED [facility] Comment on above: Performed By: #### B CID2 ####[facility] Pysmervvbi7317[address] [place], [place] [address]Dr. Erasmo Smith Proteus Not detected Normal NOT DETECTED [facility] Comment on above: Performed By: #### B CID2 ####[facility] Rlztpqamid875[address] [place], [place] [address]Dr. Erasmo Smith Pseud. aeruginosa Not detected Normal NOT DETECTED [facility] Comment on above: Performed By: #### B CID2 ####[facility] Pcfsfnykkx174[address] [place], [place] [address]Dr. Erasmo Smith S. maltophilia Not detected Normal NOT DETECTED [facility] Comment on above: Performed By: #### B CID2 ####[facility] Tlibzndjwt096[address] [place], [place] [address]Dr. Erasmo Smith Salmonella Not detected Normal NOT DETECTED [facility] Comment on above: Performed By: #### B CID2 ####[facility] Akouvofgmp1938[address] [place], [place] [address]Dr. Erasmo Luis Seratia marcescens Not detected Normal NOT DETECTED [facility] Comment on above: Performed By: #### B CID2 ####[facility] Iamvrbodbm6160[address] [place], [place] [address]Dr. Erasmo Smith Site: l ac Normal [facility] Comment on above: Performed By: #### B CID2 ####[facility] Shtdhtjbel8740[address] [place], [place] [address]Dr. Erasmo Luis Staph. aureus Not detected Normal NOT DETECTED [facility] Comment on above: Performed By: #### B CID2 ####[facility] Ejihwswmyr[address] [place], [place] [address]Dr. Erasmo Luis Staph. epidermidis Not detected Normal NOT DETECTED [facility] Comment on above: Performed By: #### B CID2 ####[facility] Fbmufdrfxi5615[address] [place], [place] [address]Dr. Heavenean Luis Staph. lugdunensis Not detected Normal NOT DETECTED [facility] Comment on above: Performed By: #### B CID2 ####[facility] Vwxmqyemua7345[address] [place], [place] [address]Dr. Erasmo Smith Staphylococcus Not detected Normal NOT DETECTED [facility] Comment on above: Performed By: #### B CID2 ####[facility] Okkrurmsqd3268[address] [place], [place] [address]Dr. Erasmo Smith Strep. agalactiae Not detected Normal NOT DETECTED [facility] Comment on above: Performed By: #### B CID2 ####[facility] Ltxybsxsdj7769[address] [place], [place] [address]Dr. Erasmo Smith Strep. pneumoniae Not detected Normal NOT DETECTED [facility] Comment on above: Performed By: #### B CID2 ####[facility] Yqxxgmzlbh2516[address] [place], [place] [address]Dr. Yiean Smith Strep. pyogenes Not detected Normal NOT DETECTED [facility] Comment on above: Performed By: #### B CID2 ####[facility] Dakkcijctz6874[address] [place], [place] [address]Dr. Heavenlan Smith Streptococcus Not detected Normal NOT DETECTED [facility] Comment on above: Performed By: #### B CID2 ####[facility] [address]axb[address] [place] [address]DrMeena Smith Fran/B Resist. Gene Not detected Normal NOT DETECTED [facility] Comment on above: Performed By: #### B CID2 ####[facility] Kcfzpgcnsr9914[address] [place], [place] [address]DrMeena Smith VIM Resistant Gene Not Applicable Normal NOT DETECTED [facility] Comment on above: Performed By: #### B CID2 ####[facility] Mjriquddyg636[address] [place], [place] [address]Dr. Erasmo Smith BNPon 12-02-2022 Natriuretic peptide B (Bld) [Mass/Vol] 1059.0 pg/mL Normal <=1,800.0 [facility] Comment on above: Performed By: #### B INVESTMENT BANKING ANALYST #### [facility] [address] [place] [address] Dr. Erasmo Smith CBC AUTO DIFFon 12-02-2022 BASO # 0.0 103/ul Normal 0.0-0.1 [facility] Comment on above: Performed By: #### C BC ####[facility] Kyoliqaahe7899[address] [place], [place] [address]DrMeena Smith Basophils/100 WBC (Bld) 0.2 % Normal 0.2-2.0 [facility] Comment on above: Performed By: #### C BC ####[facility] Dndrarrftm5369[address] [place], [place] [address]DrMeena Smith EO # 0.0 103/ul Normal 0.0-0.7 [facility] Comment on above: Performed By: #### C BC ####[facility] Kvpjtuctut586[address] [place], [place] [address]Dr. Erasmo Smith Eosinophils/100 WBC (Bld) 0.0 % Critically low 0.9-7.0 [facility] Comment on above: Performed By: #### C BC ####[facility] Raidlzsaxw5904[address] [place], [place] [address]DrMeena Smith Erythrocyte distribution width (RBC) [Ratio] 17.3 % Critically high 11.0-15.0 [facility] Comment on above: Performed By: #### C BC ####[facility] Nejfunfi[address] [place] [address]Dr. Erasmo Smith Hematocrit (Bld) [Volume fraction] 31.4 % Critically low 36.0-48.0 [facility] Comment on above: Performed By: #### C BC ####[facility] Fqtsktfagb112[address] [place] [address]DrMeena Smith Hemoglobin (Bld) [Mass/Vol] 10.0 g/dL Critically low 12.0-16.0 [facility] Comment on above: Performed By: #### C BC ####[facility] Ydlnowyalo7878[address] [place], [place] [address]DrMeena Smith IG # 0.06 10e3/ul Critically high 0.00-0.03 [facility] Comment on above: Performed By: #### C BC ####[facility] Wmhcgyyzzb389[address] [place], [place] [address]DrMeena Smith IG % 0.4 % Normal 0.0-0.5 [facility] Comment on above: Performed By: #### C BC ####[facility] Oebnryjexd579[address] [place], [place] [address]DrMeena Smith LYMPH # 1.3 103/ul Normal 1.2-3.8 [facility] Comment on above: Performed By: #### C BC ####[facility] Vyxyylsvxx6539[address] [place], [place] [address]DrMeena Smith Lymphocytes/100 WBC (Bld) 8.1 % Critically low 20.5-60.0 [facility] Comment on above: Performed By: #### C BC ####[facility] Gsrgrpxhuq5887[address] [place], [place] [address]DrMeena Smith MANUAL DIFF REQ NO Normal [facility] Comment on above: Performed By: #### C BC ####[facility] Jqaxjnowmc835[address] [place], [place] [address]DrMeena Smith MCH (RBC) [Entitic mass] 25.6 pg Critically low 26.7-34.0 [facility] Comment on above: Performed By: #### C BC ####[facility] Nybvfsfdlq[address] [place] [address]Dr. Erasmo Luis MCHC (RBC) [Mass/Vol] 31.8 g/dL Normal 29.9-35.2 [facility] Comment on above: Performed By: #### C BC ####[facility] Npmyiarnjs0434[address] [place], [place] [address]Dr. Erasmo Smith MCV (RBC) [Entitic vol] 80.3 fL Critically low 81.0-99.0 [facility] Comment on above: Performed By: #### C BC ####[facility] Nysifqcsgp0699[address] [place], [place] [address]DrMeena Smith MONO # 0.6 103/ul Normal 0.3-0.8 [facility] Comment on above: Performed By: #### C BC ####[facility] Uhllvzwsfj9449[address] [place], [place] [address]Dr. Erasmo Smith Monocytes/100 WBC (Bld) 3.7 % Normal 1.7-12.0 [facility] Comment on above: Performed By: #### C BC ####[facility] Nirbiytbwu[address] [place], [place] [address]DrMeena Smith NEUT # 14.5 103/ul Critically high 1.4-6.5 [facility] Comment on above: Performed By: #### C BC ####[facility] Plxnppiqxq719[address] [place], [place] [address]Dr. Erasmo Smith Neutrophils/100 WBC (Bld) 87.6 % Critically high 43.0-75.0 [facility] Comment on above: Performed By: #### C BC ####[facility] Nezlitvaaj20[address] [place], [place] [address]Dr. Erasmo Smith Platelet mean volume (Bld) [Entitic vol] 10.0 fL Normal 9.5-13.5 [facility] Comment on above: Performed By: #### C BC ####[facility] A[address]cf[address] [place], [place] [address]Dr. Erasmo Smith PLT 206 103/ul Normal 150-450 [facility] Comment on above: Performed By: #### C BC ####[facility] Albdeuqosc59[address] [place], [place] [address]Xb. Erasmo Smith RBC 3.91 106/ul Critically low 4.20-5.40 [facility] Comment on above: Performed By: #### C BC ####[facility] V[address]rt[address] [place], [place] [address]Ke. Erasmo Smith WBC 16.5 103/ul Critically high 4.0-11.0 [facility] Comment on above: Performed By: #### C BC ####[facility] Wcqgsnwbhi0919 [place], [place] [address]Uu. Erasmo Smith ECHOCARDIO M/2D COMPLETEon 0 12-02-2022 ECHOCARDIO M/2D COMPLETE Patient: BREANN STARKS Exam Date: 12/02/2022 : 1945 Gender:F Ordering : KAYLEY HOLMAN . Admission #: [id number] Family : DR LUISANA FISHER . Order #: [id number] CLICK HERE TO VIEW EXAM ECHOCARDIOGRAM REPORT [...] Salazar M.D. on 12/02/2022 at 21:58 Normal [facility] MAGNESIUMon 03-23-2023 Magnesium [Mass/Vol] 2.0 mg/dL Normal 1.8-2.4 [facility] Comment on above: Performed By: #### B INVESTMENT BANKING ANALYST #### [facility] [address] [place] [address] Dr. Erasmo Smith PROF 14(COMP METB)on 023 Albumin [Mass/Vol] 2.7 g/dL Critically low 3.4-5.0 [facility] Comment on above: Performed By: #### B INVESTMENT BANKING ANALYST #### [facility] [address] [place] [address] Dr. Erasmo Smith Albumin/Globulin [Mass ratio] 0.6 {ratio} Normal [facility] Comment on above: Performed By: #### B INVESTMENT BANKING ANALYST #### [facility] [address] [place] [address] Dr. Erasmo Smith ALP [Catalytic activity/Vol] 128 U/L Critically high 46-116 [facility] Comment on above: Performed By: #### B INVESTMENT BANKING ANALYST #### [facility] [address] [place] [address] Dr. Erasmo Smith ALT [Catalytic activity/Vol] 34 U/L Normal 14-59 [facility] Comment on above: Performed By: #### B INVESTMENT BANKING ANALYST #### [facility] [address] [place] [address] Dr. Erasmo Smith Anion gap [Moles/Vol] 10.6 mmol/L Normal [facility] Comment on above: Performed By: #### B INVESTMENT BANKING ANALYST #### [facility] [address] [place] [address] Dr. Erasmo Smith AST [Catalytic activity/Vol] 27 U/L Normal 15-37 [facility] Comment on above: Performed By: #### B INVESTMENT BANKING ANALYST #### [facility] [address] [place] [address] Dr. Erasmo Smith Bilirubin [Mass/Vol] 0.5 mg/dL Normal 0.2-1.0 [facility] Comment on above: Performed By: #### B INVESTMENT BANKING ANALYST #### [facility] [address] [place] [address] Dr. Erasmo Smith Calcium [Mass/Vol] 8.4 mg/dL Critically low 8.5-10.[address] [facility] Comment on above: Performed By: #### B INVESTMENT BANKING ANALYST #### [facility] [address] [place] [address] Dr. Erasmo Smith Chloride [Moles/Vol] 104 mmol/L Normal 98-107 [facility] Comment on above: Performed By: #### B INVESTMENT BANKING ANALYST #### [facility] [address] [place] [address] Dr. Erasmo Smith CO2 [Moles/Vol] 26.2 mmol/L Normal 21.0-32.0 [facility] Comment on above: Performed By: #### B INVESTMENT BANKING ANALYST #### [facility] [address] [place] [address] Dr. Erasmo Smith Creatinine [Mass/Vol] 0.52 mg/dL Critically low 0.55-1.02 [facility] Comment on above: Performed By: #### B INVESTMENT BANKING ANALYST #### [facility] [address] [place] [address] Dr. Erasmo Smith EGFR-AF ANGOLAN >60 Normal >=60 [facility] Comment on above: Performed By: #### B INVESTMENT BANKING ANALYST #### [facility] [address] [place] [address] Dr. Erasmo Smith EGFR-NON AF ANGOLAN >60 Normal >=60 [facility] Comment on above: Performed By: #### B INVESTMENT BANKING ANALYST #### [facility] [address] [place] [address] Dr. Erasmo Smith Globulin (S) [Mass/Vol] 4.3 g/dL Normal [facility] Comment on above: Performed By: #### B INVESTMENT BANKING ANALYST #### [facility] [address] [place] [address] Dr. Erasmo Smith Glucose [Mass/Vol] 135 mg/dL Critically high 74-106 [facility] Comment on above: Performed By: #### B INVESTMENT BANKING ANALYST #### [facility] [address] [place] [address] Dr. Erasmo Smith Potassium [Moles/Vol] 3.8 mmol/L Normal 3.5-5.1 [facility] Comment on above: Performed By: #### B INVESTMENT BANKING ANALYST #### [facility] [address] [place] [address] Dr. Erasmo Smith Protein [Mass/Vol] 7.0 g/dL Normal 6.4-8.2 [facility] Comment on above: Performed By: #### B INVESTMENT BANKING ANALYST #### [facility] [address] [place] [address] [address] Erasmo Smith Sodium [Moles/Vol] 137 mmol/L Normal 136-145 [facility] Comment on above: Performed By: #### B INVESTMENT BANKING ANALYST #### [facility] [address] [place] [address] Dr. Erasmo Smith Urea nitrogen [Mass/Vol] 16.0 mg/dL Normal 7.0-18.0 [facility] Comment on above: Performed By: #### B INVESTMENT BANKING ANALYST #### [facility] [address] [place] [address] Dr. Erasmo Smith Urea nitrogen/Creatinine [Mass ratio] 30.8 mg/mg Normal [facility] Comment on above: Performed By: #### B INVESTMENT BANKING ANALYST #### [facility] [address] [place] [address] Dr. Erasmo Smith PROTIMEon 12-02-2022 INR Coag (PPP) [Relative time] 4.39 {INR} Critically high [facility] Comment on above: Performed By: #### P T #### [facility] [address] [place] [address] Dr. Erasmo Smith INR GUIDELINES SEE BELOW Normal [facility] Comment on above: Result Comment: ABNER RED INR: 2.0 - 3.0 CONDITIONS NOT LISTED BELOW 2.5 - 3.5 FOR PROSTHETIC HEART VALVE REPLACEMENT 2.5 - 3.5 RECURRENT THROMBOSIS Performed By: #### P T #### [facility] [address] [place] [address] Dr. Erasmo Smith PT Coag (PPP) [Time] 42.8 s Critically high 9.0-11.6 [facility] Comment on above: Performed By: #### P T #### [facility] [address] [place] [address] Dr. Erasmo Smith UA RANDOM W/MICROSCOPICon BACTERIA NONE SEEN Normal NONE SEEN [facility] Comment on above: Performed By: #### U AMIC ####[facility] [address] [place] [address]Dr. Erasmo Smith Bilirubin Ql (U) Negative Normal NEGATIVE [facility] Comment on above: Performed By: #### U AMIC ####[facility] Y[address]eqkxzo[address] [place] [address]Dr. Erasmo Smith CAST NONE SEEN Normal NONE SEEN [facility] Comment on above: Performed By: #### U AMIC ####[facility] [address] [place] [address]Dr. Erasmo Smith Clarity (U) CLEAR Normal CLEAR [facility] Comment on above: Performed By: #### U AMIC ####[facility] [address] [place] [address]Dr. Erasmo Smith Color (U) YELLOW Normal YELLOW [facility] Comment on above: Performed By: #### U AMIC ####[facility] Axxoitacev[address] [place], [place] [address]Dr. Erasmo Smith Crystals LM Nom (Urine sed) NONE SEEN Normal NONE SEEN [facility] Comment on above: Performed By: #### U AMIC ####[facility] [address]otp[address] [place] [address]Dr. Erasmo Smith Epithelial cells LM Ql (Urine sed) RARE Normal NONE SEEN /RARE [facility] Comment on above: Performed By: #### U AMIC ####[facility] Sqnqtuvwhs[address] [place] [address]Dr. Erasmo Smith Glucose Ql (U) Negative Normal NEGATIVE [facility] Comment on above: Performed By: #### U AMIC ####[facility] [address]zuhvygkjf[address] [place], [place] [address]Dr. Erasmo Smith Hemoglobin Ql (U) SMALL Abnormal NEGATIVE [facility] Comment on above: Performed By: #### U AMIC ####[facility] Bbxaslxxft[address] [place], [place] [address]Dr. Erasmo Smith Ketones Ql (U) 15 mg/dl Abnormal NEGATIVE [facility] Comment on above: Performed By: #### U AMIC ####[facility] [address]wo[address] [place] [address]Dr. Erasmo Smith LEUKOCYTES Negative Normal NEGATIVE [facility] Comment on above: Performed By: #### U AMIC ####[facility] T[address]zkdhiyv[address] [place] [address]Dr. Erasmo Smith MUCOUS NONE SEEN Normal NONE SEEN [facility] Comment on above: Performed By: #### U AMIC ####[facility] Xvsuqflkpg[address] [place] [address]Dr. Erasmo Smith Nitrite Ql (U) Negative Normal NEGATIVE [facility] Comment on above: Performed By: #### U AMIC ####[facility] Lxaayvvasc[address] [place], [place] [address]Dr. Erasmo Smith pH (U) 6.0 [pH] Normal 5-9 [facility] Comment on above: Performed By: #### U AMIC ####[facility] Spzpbakkcj[address] [place], [place] [address]Dr. Erasmo Smith RBC 0-2 Normal 0-2 [facility] Comment on above: Performed By: #### U AMIC ####[facility] Izwtnsmvcl[address] [place], [place] [address]Dr. Erasmo Smith SPEC GRAVITY 1.025 Normal 1.005-<=1.02 5 [facility] Comment on above: Performed By: #### U AMIC ####[facility] Abofeaelpb23[address] [place], [place] [address]Dr. Erasmo Smith UA PROTEIN TRACE Normal NEGATIVE/ TRACE [facility] Comment on above: Performed By: #### U AMIC ####[facility] Elipuuxnjj[address] [place], [place] [address]Dr. Erasmo Smith Urobilinogen Qn (U) 4 {Shraddha'U}/dL Abnormal 0.2 - 1.0 [facility] Comment on above: Performed By: #### U AMIC ####[facility] Phoexikxrl[address] [place], [place] [address]Dr. Erasmo Smith WBC 0-2 Abnormal NONE SEEN [facility] Comment on above: Performed By: #### U AMIC ####[facility] [address] [place], [place] [address]PxDr. Erasmo Smith CARDIAC ROSA ELENA 3-6on 3 CK [Catalytic activity/Vol] 53 U/L Normal 26-192 [facility] Comment on above: Performed By: #### C MREP #### [facility] [address] [address] [address] Erasmo Smith CK.MB [Mass/Vol] 0.90 ng/mL Normal <=3.60 [facility] Comment on above: Performed By: #### C MREP #### [facility] [address] [address] [address] Erasmo Smith HSTROP 116.7 pg/mL Critically high 4.0-51.3 [facility] Comment on above: Result Comment: CUT- OFF POINTS HAVE BEEN ESTABLISHED BASED ON THE FOURTH UNIVERSAL DEFINITIONS OF MYOCARDIAL INFARCTION. THE UPPER REFERENCE LIMIT (URL) OF TROPONIN, DEFINED THE 99TH PERCENTILE OF cTnI DISTRIBUTION IN A REFERENCE POPULATION, HAS BEEN CONFIRMED THE DECISION THRESHOLD FOR DE DIAGNOSIS. Performed By: #### C MREP #### [facility] [address] [address] [address] Erasmo Smith CK [Catalytic activity/Vol] 47 U/L Normal 26-192 [facility] Comment on above: Performed By: #### B INVESTMENT BANKING ANALYST #### [facility] [address] [address] [address] Erasmo Smith CK.MB [Mass/Vol] 1.00 ng/mL Normal <=3.60 [facility] Comment on above: Performed By: #### B INVESTMENT BANKING ANALYST #### [facility] [address] [address] [address] Erasmo Smith HSTROP 154.3 pg/mL Critically high 4.0-51.3 [facility] Comment on above: Result Comment: CUT- OFF POINTS HAVE BEEN ESTABLISHED BASED ON THE FOURTH UNIVERSAL DEFINITIONS OF MYOCARDIAL INFARCTION. THE UPPER REFERENCE LIMIT (URL) OF TROPONIN, DEFINED THE 99TH PERCENTILE OF cTnI DISTRIBUTION IN A REFERENCE POPULATION, HAS BEEN CONFIRMED THE DECISION THRESHOLD FOR DE DIAGNOSIS. Performed By: #### B INVESTMENT BANKING ANALYST #### [facility] [address] [place] [address] Dr. Erasmo Smith CBC W MANUAL DIFFon 12-02-19 23 ATYPICAL LYMPH # Normal [facility] Comment on above: Performed By: #### C BCMAN #### [facility] [address] [place] [address] Dr. Erasmo Smith ATYPICAL LYMPH % Normal [facility] Comment on above: Performed By: #### C BCMAN #### [facility] [address] [place] [address] Dr. Erasmo Smith BAND # 0.6 103/ul Critically high 0.0-0.3 [facility] Comment on above: Performed By: #### C ALHAJIMAN #### [facility] [address] [place] [address] Dr. Erasmo Smith BAND % 3 % Normal 0-5 [facility] Comment on above: Performed By: #### C ALHAJIMAN #### [facility] [address] [place] [address] Dr. Erasmo Smith BASOM # 0.00 103/ul Normal 0.00-0.10 [facility] Comment on above: Performed By: #### C ALHAJIMAN #### [facility] [address] [place] [address] Dr. Erasmo Smith BASOM % 0.0 % Critically low 0.2-2.0 [facility] Comment on above: Performed By: #### C ANGELA #### [facility] [address] [place] [address] Dr. Erasmo Smith BLAST # Normal [facility] Comment on above: Performed By: #### C ANGELA #### [facility] [address] [place] [address] Dr. Erasmo Smith BLAST % Normal [facility] Comment on above: Performed By: #### C ANGELA #### [facility] [address] [place] [address] Dr. Erasmo Smith CORRECTED WBC Normal 4.0-11.0 [facility] Comment on above: Performed By: #### C BCBLAISE #### [facility] [address] [address] [address] Erasmo Smith EOS # 0.19 103/ul Normal 0.00-0.70 [facility] Comment on above: Performed By: #### C BCBLAISE #### [facility] [address] [address] [address] Erasmo Smith EOS% 1.0 % Normal 0.9-7.0 [facility] Comment on above: Performed By: #### C BCBLAISE #### [facility] [address] [address] [address] Erasmo Smith HCT 32.7 % Critically low 36.0-48.0 [facility] Comment on above: Performed By: #### C ANGELA #### [facility] [address] [address] [address] Erasmo Smith HGB 10.5 g/dl Critically low 12.0-16.0 [facility] Comment on above: Performed By: #### C ANGELA #### [facility] [address] [address] [address] Erasmo Smith LYMPHM # 0.76 103/ul Critically low 1.20-3.80 [facility] Comment on above: Performed By: #### C ANGELA #### [facility] [address] [address] [address] Erasmo Smith LYMPHM% 4.0 % Critically low 20.5-60.0 [facility] Comment on above: Performed By: #### C BCBLAISE #### [facility] [address] [address] [address] Erasmo Smith MCH 25.9 pg Critically low 26.7-34.0 [facility] Comment on above: Performed By: #### C BCBLAISE #### [facility] [address] [address] [address] Erasmo Smith MCHC 32.1 g/dl Normal 29.9-35.2 [facility] Comment on above: Performed By: #### C ANGELA #### [facility] [address] [place] [address] Dr. Erasmo Smith MCV 80.5 fL Critically low 81.0-99.0 [facility] Comment on above: Performed By: #### C BCMAN #### [facility] [address] [place] [address] Dr. Erasmo Smith METAMYELOCYTE # Normal [facility] Comment on above: Performed By: #### C BCMAN #### [facility] [address] [place] [address] Dr. Erasmo Smith METAMYELOCYTE % Normal [facility] Comment on above: Performed By: #### C BCBLAISE #### [facility] [address] [place] [address] Dr. Erasmo Smith MONOM# 1.14 103/ul Critically high 0.30-0.80 [facility] Comment on above: Performed By: #### C ANGELA #### [facility] [address] [place] [address] Dr. Erasmo Smith MONOM% 6.0 % Normal 1.7-12.0 [facility] Comment on above: Performed By: #### C ANGELA #### [facility] [address] [place] [address] Dr. Erasmo Smith MPV 9.4 fL Critically low 9.5-13.5 [facility] Comment on above: Performed By: #### C ANGELA #### [facility] [address] [place] [address] Dr. Erasmo Smith MYELOCYTE # Normal [facility] Comment on above: Performed By: #### C ANGELA #### [facility] [address] [place] [address] Dr. Erasmo Smith MYELOCYTE % Normal [facility] Comment on above: Performed By: #### C ALHAJIMAN #### [facility] [address] [place] [address] Dr. Erasmo Smith NRBC Normal [facility] Comment on above: Performed By: #### C ANGELA #### [facility] [address] [place] [address] Dr. Erasmo Smith PLT 195 103/ul Normal 150-450 [facility] Comment on above: Performed By: #### C BCMAN #### [facility] [address] [address] [address] Erasmo Smith RBC 4.06 106/ul Critically low 4.20-5.40 [facility] Comment on above: Performed By: #### C BCMAN #### [facility] [address] [address] [address] Erasmo Smith RDW 17.7 % Critically high 11.0-15.0 [facility] Comment on above: Performed By: #### C BCMAN #### [facility] [address] [address] [address] Erasmo Smith SEG # 16.34 103/ul Critically high 1.40-6.50 [facility] Comment on above: Performed By: #### C BCMAN #### [facility] [address] [address] [address] Erasmo Smith SEG % 86.0 % Critically high 43.0-75.0 [facility] Comment on above: Performed By: #### C BCMAN #### [facility] [address] [address] [address] Erasmo Smith WBC 19.0 103/ul Critically high 4.0-11.0 [facility] Comment on above: Performed By: #### C BCMAN #### [facility] [address] [place] [address] HEAD WO CONon [...] HAYDERPEARL MCCORMICK Date: 2022 14:50 Normal [facility] CULTURE BLOODon 2022 Microscopic examination of blood, culture Culture Observations: Aerobic and Anaerobic bottle positive. BCID: E. Coli Culture Observations: Refer to for VIOLET. Isolate 1 Escherichia coli Growth of Normal [facility] Comment on above: Performed By: #### B LDCX2 ####[facility] [address] [place], [place] [address]EvMeena Smith Covid-19 PCR (CVDTB)on 11-11 SARS-CoV-2 (COVID-19) RNA EMILY+probe Ql (Unsp spec) Not detected Normal NOT DETECTED [facility] Comment on above: Result Comment: When [...] for this test is supported by the Medical Collector of Health and Human Service's declaration that [...] used). Performed By: #### C MREP #### [facility] [address] [place], [place] [address] Dr. Erasmo Smith LACTATE/LACTIC ACIDon 2022 Lactate [Moles/Vol] 1.2 mmol/L Normal 0.4-2.0 [facility] Comment on above: Performed By: #### L ACT ####[facility] [address] [id number]. Erasmo Smith PH VENOUS BLOODon 2022 PCO2 VENOUS 37.8 mmHg Critically low 40.0-52.0 [facility] Comment on above: Performed By: #### P HVEN ####[facility] [address] [address]Dr. Heavenena Luis pH VENOUS 7.417 Normal 7.330-7.430 [facility] Comment on above: Performed By: #### P FEDERICO ####[facility] [address] [address]Dr. Erasmo Smith PROF 14(COMP METB)on 023 Albumin [Mass/Vol] 3.1 g/dL Critically low 3.4-5.0 [facility] Comment on above: Performed By: #### Kymberly BELTRE, CMP ####[facility] [address] [address]Dr. Erasmo Smith Albumin/Globulin [Mass ratio] 0.8 {ratio} Normal [facility] Comment on above: Performed By: #### Kymberly BELTRE, CMP ####[facility] [address] [address]Dr. Erasmo Smith ALP [Catalytic activity/Vol] 194 U/L Critically high 46-116 [facility] Comment on above: Performed By: #### Kymberly BELTRE, CMP ####[facility] [address] [address]Dr. Erasmo Smith ALT [Catalytic activity/Vol] 37 U/L Normal 14-59 [facility] Comment on above: Performed By: #### Kymberly BELTRE, CMP ####[facility] [address] [address]Dr. Erasmo Smith Anion gap [Moles/Vol] 14.6 mmol/L Normal [facility] Comment on above: Performed By: #### Kymberly BELTRE, CMP ####[facility] [address] [address]Dr. Erasmo Smith AST [Catalytic activity/Vol] 32 U/L Normal 15-37 [facility] Comment on above: Performed By: #### Kymberly BELTRE, CMP ####[facility] [address] [address]Dr. Erasmo Smith Bilirubin [Mass/Vol] 1.0 mg/dL Normal 0.2-1.0 [facility] Comment on above: Performed By: #### H STROLYNDA, CMP ####[facility] [address] [place], [place] [address]Dr. Erasmo Smith Calcium [Mass/Vol] 8.9 mg/dL Normal 8.5-10.1 [facility] Comment on above: Performed By: #### H STROPN, CMP ####[facility] [address] [address]Dr. Erasmo Smith Chloride [Moles/Vol] 103 mmol/L Normal 98-107 [facility] Comment on above: Performed By: #### H STROLYNDA, CMP ####[facility] [address] [place], [place] [address]Dr. Erasmo Smith CO2 [Moles/Vol] 23.6 mmol/L Normal 21.0-32.0 [facility] Comment on above: Performed By: #### H STROLYNDA, CMP ####[facility] [address] [place], [place] [address]Dr. Erasmo Smith Creatinine [Mass/Vol] 0.69 mg/dL Normal 0.55-1.02 [facility] Comment on above: Performed By: #### H STROLYNDA, CMP ####[facility] [address] [place], [place] [address]Dr. Erasmo Smith EGFR-AF ANGOLAN >60 Normal >=60 [facility] Comment on above: Performed By: #### H STROPN, CMP ####[facility] [address] [place], [place] [address]Dr. Erasmo Smith EGFR-NON AF ANGOLAN >60 Normal >=60 [facility] Comment on above: Performed By: #### H STROPN, CMP ####[facility] [address] [place], [place] [address]Dr. Erasmo Smith Globulin (S) [Mass/Vol] 4.1 g/dL Normal [facility] Comment on above: Performed By: #### H STROPN, CMP ####[facility] [address] [address]Dr. Erasmo Smith Glucose [Mass/Vol] 121 mg/dL Critically high 74-106 [facility] Comment on above: Performed By: #### H ALEXSANDER, CMP ####[facility] [address] [address]Dr. Erasmo Smith Potassium [Moles/Vol] 3.2 mmol/L Critically low 3.5-5.1 [facility] Comment on above: Performed By: #### H ALEXSANDER, CMP ####[facility] [address] [address]Dr. Erasmo Smith Protein [Mass/Vol] 7.2 g/dL Normal 6.4-8.2 [facility] Comment on above: Performed By: #### H ALEXSANDER, CMP ####[facility] [address] [address]Dr. Erasmo Smith Sodium [Moles/Vol] 138 mmol/L Normal 136-145 [facility] Comment on above: Performed By: #### H ALEXSANDER, CMP ####[facility] [address] [address]Dr. Erasmo Smith Urea nitrogen [Mass/Vol] 17.0 mg/dL Normal 7.0-18.0 [facility] Comment on above: Performed By: #### H ALEXSANDER, CMP ####[facility] [address] [address]Dr. Erasmo Smith Urea nitrogen/Creatinine [Mass ratio] 24.6 mg/mg Normal [facility] Comment on above: Performed By: #### H ALEXSANDER, CMP ####[facility] [address] [address]DrMeena Smith PROTIMEon 2022 INR Coag (PPP) [Relative time] 3.58 {INR} Normal [facility] Comment on above: Performed By: #### P T, PTT #### [facility] [address] [address] [address] Erasmo Smith INR GUIDELINES SEE BELOW Normal [facility] Comment on above: Result Comment: ABNER RED INR: 2.0 - 3.0 CONDITIONS NOT LISTED BELOW 2.5 - 3.5 FOR PROSTHETIC HEART VALVE REPLACEMENT 2.5 - 3.5 RECURRENT THROMBOSIS Performed By: #### P T, PTT #### [facility] [address] [place] [address] Dr. Erasmo Smith PT Coag (PPP) [Time] 35.3 s Critically high 9.0-11.6 [facility] Comment on above: Performed By: #### P T, PTT #### [facility] [address] [place] [address] Dr. Erasmo Smith PTTon 2022 aPTT Coag (Bld) [Time] 40.3 s Critically high 22.3-36. 2 [facility] Comment on above: Performed By: #### P T, PTT #### [facility] [address] [place] [address] Dr. Erasmo Smith TROPONIN, HIGH SENSITIVITYon 2022 HSTROP 194.7 pg/mL Critically high 4.0-51.3 [facility] Comment on above: Result Comment: CUT- OFF POINTS HAVE BEEN ESTABLISHED BASED ON THE FOURTH UNIVERSAL DEFINITIONS OF MYOCARDIAL INFARCTION. THE UPPER REFERENCE LIMIT (URL) OF TROPONIN, DEFINED THE 99TH PERCENTILE OF cTnI DISTRIBUTION IN A REFERENCE POPULATION, HAS BEEN CONFIRMED THE DECISION THRESHOLD FOR DE DIAGNOSIS. Performed By: #### C MREP #### [facility] [address] [place] [address] Dr. Erasmo Smith HSTROP 218.0 pg/mL Critically high 4.0-51.3 [facility] Comment on above: Result Comment: CUT- OFF POINTS HAVE BEEN ESTABLISHED BASED ON THE FOURTH UNIVERSAL DEFINITIONS OF MYOCARDIAL INFARCTION. THE UPPER REFERENCE LIMIT (URL) OF TROPONIN, DEFINED THE 99TH PERCENTILE OF cTnI DISTRIBUTION IN A REFERENCE POPULATION, HAS BEEN CONFIRMED THE DECISION THRESHOLD FOR DE DIAGNOSIS. Performed By: #### B INVESTMENT BANKING ANALYST #### [facility] [address] [place] [address] Dr. Erasmo Smith XR CHEST 1 Von [...] by: HONG ALSTON Date: 2022 14:18 Normal [facility] Reportson 11-30-2022 Lab Reports [id number] #[id number]:127 Normal [facility] MG MAMM SCREEN 3D TOÑITO CADon 11-26-2022 MG MAMM SCREEN 3D TOÑITO CAD Patient: BREANN STARKS Exam Date: 11/26/2022 : 1945 Gender:F Ordering : DR LUISANA FISHER . Admission #: [id number] Family : Order #: [id number] CLICK HERE TO VIEW EXAM RADIOLOGY REPORT [...] Treatments None Family Cancers None LOCATION: [facility] BREAST COMPOSITION: Heterogeneously dense,which may obscure [...] Delgado M.D. on 11/26/2022 at 14:13 Normal [facility] Office Visiton 11-10-2022 Follow-up visit [id number] Breann Starks T 1945 F Date Provider Department Center 11/10/2022 CECILIO CALLAWAY AMISH [facility] Family History Family history unknown: Yes Level of Service:78973 SC OFFICE/OUTPATIENT ESTABLISHED LOW MDM 20-29 MIN Reason for Visit and Comments: Follow-up [294766] Normal [facility] Refillon 09-18-2022 Refill [id number] Breann Starks T 1945 F Date Provider Department Center 09/18/2022 YANCY IVERSON [facility] CARD [place] Family History Family history unknown: Yes Reason for Visit and Comments: Med Refill [241307] [facility] PROF 14(COMP METB)on 022 Albumin [Mass/Vol] 3.8 g/dL Normal 3.4-5.0 [facility] Comment on above: Performed By: #### C MREP #### [facility] [address] [place] [address] Dr. Erasmo Smith Albumin/Globulin [Mass ratio] 0.8 {ratio} Normal [facility] Comment on above: Performed By: #### C MREP #### [facility] [address] [place] [address] Dr. Erasmo Smith ALP [Catalytic activity/Vol] 102 U/L Normal 46-116 [facility] Comment on above: Performed By: #### C MREP #### [facility] [address] [place] [address] Dr. Erasmo Smith ALT [Catalytic activity/Vol] 47 U/L Normal 14-59 [facility] Comment on above: Performed By: #### C MREP #### [facility] [address] [place] [address] Dr. Erasmo Smith Anion gap [Moles/Vol] 12.5 mmol/L Normal [facility] Comment on above: Performed By: #### C MREP #### [facility] [address] [place] [address] Dr. Erasmo Smith AST [Catalytic activity/Vol] 36 U/L Normal 15-37 [facility] Comment on above: Performed By: #### C MREP #### [facility] [address] [place] [address] Dr. Erasmo Smith Bilirubin [Mass/Vol] 0.3 mg/dL Normal 0.2-1.0 [facility] Comment on above: Performed By: #### C MREP #### [facility] [address] [place] [address] Dr. Erasmo Smith Calcium [Mass/Vol] 8.9 mg/dL Normal 8.5-10.1 [facility] Comment on above: Performed By: #### C MREP #### [facility] [address] [place] [address] Dr. Erasmo Smith Chloride [Moles/Vol] 106 mmol/L Normal 98-107 [facility] Comment on above: Performed By: #### C MREP #### [facility] [address] [place] [address] Dr. Erasmo Smith CO2 [Moles/Vol] 26.9 mmol/L Normal 21.0-32.0 [facility] Comment on above: Performed By: #### C MREP #### [facility] [address] [place] [address] Dr. Erasmo Smith Creatinine [Mass/Vol] 0.79 mg/dL Normal 0.55-1.02 [facility] Comment on above: Performed By: #### C MREP #### [facility] [address] [place] [address] Dr. Erasmo Smith EGFR-AF ANGOLAN >60 Normal >=60 [facility] Comment on above: Performed By: #### C MREP #### [facility] [address] [place] [address] Dr. Erasmo Smith EGFR-NON AF ANGOLAN >60 Normal >=60 [facility] Comment on above: Performed By: #### C MREP #### [facility] [address] [place] [address] Dr. Erasmo Smith Globulin (S) [Mass/Vol] 4.6 g/dL Normal [facility] Comment on above: Performed By: #### C MREP #### [facility] [address] [address] [address] Erasmo Smith Glucose [Mass/Vol] 102 mg/dL Normal 74-106 [facility] Comment on above: Performed By: #### C MREP #### [facility] [address] [place] [address] Dr. Ersamo Smith Potassium [Moles/Vol] 4.4 mmol/L Normal 3.5-5.1 [facility] Comment on above: Performed By: #### C MREP #### [facility] [address] [place] [address] Dr. Erasmo Smith Protein [Mass/Vol] 8.4 g/dL Critically high 6.4-8.2 T [facility] Comment on above: Performed By: #### C MREP #### [facility] [address] [place] [address] Dr. Erasmo Smith Sodium [Moles/Vol] 141 mmol/L Normal 136-145 [facility] Comment on above: Performed By: #### C MREP #### [facility] [address] [place] [address] Dr. Erasmo Smith Urea nitrogen [Mass/Vol] 28.0 mg/dL Critically high 7.0-18.0 [facility] Comment on above: Performed By: #### C MREP #### [facility] [address] [place] [address] Dr. Erasmo Smith Urea nitrogen/Creatinine [Mass ratio] 35.4 mg/mg Normal [facility] Comment on above: Performed By: #### C MREP #### [facility] [address] [place] [address] Dr. Erasmo Smith CBC AUTO DIFFon 07-12-2022 BASO # 0.1 103/ul Normal 0.0-0.1 [facility] Comment on above: Performed By: #### B INVESTMENT BANKING ANALYST #### [facility] [address] [place] [address] Dr. Erasmo Smith Basophils/100 WBC (Bld) 0.5 % Normal 0.2-2.0 [facility] Comment on above: Performed By: #### B INVESTMENT BANKING ANALYST #### [facility] [address] [place] [address] Dr. Erasmo Smith EO # 0.2 103/ul Normal 0.0-0.7 [facility] Comment on above: Performed By: #### B INVESTMENT BANKING ANALYST #### [facility] [address] [place] [address] Dr. Erasmo Smith Eosinophils/100 WBC (Bld) 2.5 % Normal 0.9-7.0 [facility] Comment on above: Performed By: #### B INVESTMENT BANKING ANALYST #### [facility] [address] [place] [address] Dr. Erasmo Smith Erythrocyte distribution width (RBC) [Ratio] 17.2 % Critically high 11.0-15.0 [facility] Comment on above: Performed By: #### B INVESTMENT BANKING ANALYST #### [facility] [address] [place] [address] Dr. Erasmo Smith Hematocrit (Bld) [Volume fraction] 35.0 % Critically low 36.0-48.0 [facility] Comment on above: Performed By: #### B INVESTMENT BANKING ANALYST #### [facility] [address] [place] [address] Dr. Erasmo Smith Hemoglobin (Bld) [Mass/Vol] 11.3 g/dL Critically low 12.0-16.0 [facility] Comment on above: Performed By: #### B INVESTMENT BANKING ANALYST #### [facility] [address] [place] [address] Dr. Erasmo Smith IG # 0.02 10e3/ul Normal 0.00-0.03 [facility] Comment on above: Performed By: #### B INVESTMENT BANKING ANALYST #### [facility] [address] [place] [address] Dr. Erasmo Smith IG % 0.2 % Normal 0.0-0.5 [facility] Comment on above: Performed By: #### B INVESTMENT BANKING ANALYST #### [facility] [address] [place] [address] Dr. Erasmo Smith LYMPH # 2.3 103/ul Normal 1.2-3.8 [facility] Comment on above: Performed By: #### B INVESTMENT BANKING ANALYST #### [facility] [address] [place] [address] Dr. Erasmo Smith Lymphocytes/100 WBC (Bld) 25.4 % Normal 20.5-60.0 [facility] Comment on above: Performed By: #### B INVESTMENT BANKING ANALYST #### [facility] [address] [place] [address] Dr. Erasmo Smith MANUAL DIFF REQ NO Normal [facility] Comment on above: Performed By: #### B INVESTMENT BANKING ANALYST #### [facility] [address] [place] [address] Dr. Erasmo Smith MCH (RBC) [Entitic mass] 25.5 pg Critically low 26.7-34.0 [facility] Comment on above: Performed By: #### B INVESTMENT BANKING ANALYST #### [facility] [address] [place] [address] Dr. Erasmo Smith MCHC (RBC) [Mass/Vol] 32.3 g/dL Normal 29.9-35.2 [facility] Comment on above: Performed By: #### B INVESTMENT BANKING ANALYST #### [facility] [address] [place] [address] Dr. Erasmo Smith MCV (RBC) [Entitic vol] 78.8 fL Critically low 81.0-99.0 [facility] Comment on above: Performed By: #### B INVESTMENT BANKING ANALYST #### [facility] [address] [place] [address] Dr. Erasmo Smith MONO # 0.7 103/ul Normal 0.3-0.8 [facility] Comment on above: Performed By: #### B INVESTMENT BANKING ANALYST #### [facility] [address] [place] [address] Dr. Erasmo Smith Monocytes/100 WBC (Bld) 7.5 % Normal 1.7-12.0 [facility] Comment on above: Performed By: #### B INVESTMENT BANKING ANALYST #### [facility] [address] [place] [address] Dr. Erasmo Smith NEUT # 5.9 103/ul Normal 1.4-6.5 [facility] Comment on above: Performed By: #### B INVESTMENT BANKING ANALYST #### [facility] [address] [address] [address] Erasmo Smith Neutrophils/100 WBC (Bld) 63.9 % Normal 43.0-75.0 [facility] Comment on above: Performed By: #### B INVESTMENT BANKING ANALYST #### [facility] [address] [address] [address] Erasmo Smith Platelet mean volume (Bld) [Entitic vol] 9.0 fL Critically low 9.5-13.5 [facility] Comment on above: Performed By: #### B INVESTMENT BANKING ANALYST #### [facility] [address] [place] [address] Dr. Erasmo Smith PLT 305 103/ul Normal 150-450 [facility] Comment on above: Performed By: #### B INVESTMENT BANKING ANALYST #### [facility] [address] [place] [address] Dr. Erasmo Smith RBC 4.44 106/ul Normal 4.20-5.40 [facility] Comment on above: Performed By: #### B INVESTMENT BANKING ANALYST #### [facility] [address] [place] [address] Dr. Erasmo Smith WBC 9.2 103/ul Normal 4.0-11.0 [facility] Comment on above: Performed By: #### B INVESTMENT BANKING ANALYST #### [facility] [address] [place] [address] CHEST WO CONon [...] PAULA DELGADO Date: 2022-05-27 15:27 Normal [facility] HEMOGLOBINon 04-20-2022 Hemoglobin (Bld) [Mass/Vol] 10.6 g/dL Critically low 12.0-16.0 [facility] Comment on above: Performed By: #### H GB ####[facility] [address] [place], [place] [address]Dr. Erasmo Smith CULTURE SPUTUMon 04-02-2022 CULTURE SPUTUM Isolate 1 Pseudomonas aeruginosa Light growth of ORGANISM 1 Pseudomonas aeruginosa ANTIBIOTIC M.I.C RX STATUS Piperacillin/Tazobac saez 8 S F Ceftazidime 2 S F Imipenem 1 S F Amikacin <=2 S F Gentamicin <=1 S F Tobramycin <=1 S F Ciprofloxacin <=0.25 S F Levofloxacin 0.25 S F Normal [facility] Comment on above: Performed By: #### S PUTCX ####[facility] [address] [place], [place] [address]Dr. Erasmo Smith CYTOLOGYon 03-30-2022 SENT TO REF LAB 03/31/22 Normal [facility] Comment on above: Performed By: #### C YTO #### [facility] [address] [place] [address] Dr. Erasmo Smith SPUTUM GRAM STAINon 03-30-20 22 COMMENTS Normal [facility] Comment on above: Performed By: #### B INVESTMENT BANKING ANALYST #### [facility] [address] [place] [address] Dr. Erasmo Smith DIPHTHEROIDS Normal [facility] Comment on above: Performed By: #### B INVESTMENT BANKING ANALYST #### [facility] [address] [address] [address] Erasmo Smith EPITHELIALS <25 Normal [facility] Comment on above: Performed By: #### B INVESTMENT BANKING ANALYST #### [facility] [address] [address] [address] Erasmo Smith FUNGAL ELEMENTS Normal [facility] Comment on above: Performed By: #### B INVESTMENT BANKING ANALYST #### [facility] [address] [address] [address] Erasmo Smith GRAM NEG BACILLI FEW Normal [facility] Comment on above: Performed By: #### B INVESTMENT BANKING ANALYST #### [facility] [address] [address] [address] Erasmo CINTRON NEG DIPPLOCOCCI Normal [facility] Comment on above: Performed By: #### B INVESTMENT BANKING ANALYST #### [facility] [address] [address] [address] Erasmo CINTRON POS BACILLI Normal [facility] Comment on above: Performed By: #### B INVESTMENT BANKING ANALYST #### [facility] [address] [address] [address] Erasmo Smith GRAM POSITIVE COCCI MANY Normal [facility] Comment on above: Performed By: #### B INVESTMENT BANKING ANALYST #### [facility] [address] [address] [address] Erasmo Smith WBC (Bld) [#/Vol] 10*3/uL Normal [facility] Comment on above: Performed By: #### B INVESTMENT BANKING ANALYST #### [facility] [address] [address] [address] Erasmo Smith SPUTUM CULTUREon 03-01-2022 Epithelial cells LM Ql (Urine sed) Few Normal [facility] Comment on above: Performed By: #### C XSPTUM ####[facility] [address] [address]Dr. Erasmo Smith Gram Stain Evaluation Comment Normal [facility] Comment on above: Result Comment: This specimen is of good quality and is acceptable for routine bacterial culture. Performed By: #### C XSPTUM ####[facility] [address] [address]Dr. Erasmo Smith Lower Respiratory Culture Final report Normal [facility] Comment on above: Performed By: #### C XSPTUM ####[facility] [address] [id number]. Erasmo Smith Result 1 Comment Normal [facility] Comment on above: Result Comment: Few gram positive cocci Performed By: #### C XSPTUM ####[facility] [address] [id number]. Erasmo Smith Result Comment: Rout ine respiratory adria Result 2 Normal [facility] Comment on above: Performed By: #### C XSPTUM ####[facility] [address] [address]Dr. Erasmo Smith Result 3 Normal [facility] Comment on above: Performed By: #### C XSPTUM ####[facility] [address] [address]Dr. Erasmo Smith Result 4 Normal [facility] Comment on above: Performed By: #### C XSPTUM ####[facility] [address] [address]Dr. Erasmo Smith White Blood Cells Few Normal [facility] Comment on above: Performed By: #### C XSPTUM ####[facility] [address] [address]Dr. Erasmo Smith BNPon 02-24-2022 Natriuretic peptide B (Bld) [Mass/Vol] 319.0 pg/mL Normal <=900.0 [facility] Comment on above: Performed By: #### B INVESTMENT BANKING ANALYST #### [facility] [address] [address] [address] Erasmo Smith CBC AUTO DIFFon 02-24-2022 BASO # 0.1 103/ul Normal 0.0-0.1 [facility] Comment on above: Performed By: #### C MREP #### [facility] [address] [address] [address] Erasmo Smith Basophils/100 WBC (Bld) 0.5 % Normal 0.2-2.0 [facility] Comment on above: Performed By: #### C MREP #### [facility] [address] [place] [address] Dr. Erasmo Smith EO # 0.3 103/ul Normal 0.0-0.7 [facility] Comment on above: Performed By: #### C MREP #### [facility] [address] [place] [address] Dr. Erasmo Smith Eosinophils/100 WBC (Bld) 3.1 % Normal 0.9-7.0 [facility] Comment on above: Performed By: #### C MREP #### [facility] [address] [place] [address] Dr. Erasmo Smith Erythrocyte distribution width (RBC) [Ratio] 15.1 % Critically high 11.0-15.0 [facility] Comment on above: Performed By: #### C MREP #### [facility] [address] [place] [address] Dr. Erasmo Smith Hematocrit (Bld) [Volume fraction] 33.9 % Critically low 36.0-48.0 [facility] Comment on above: Performed By: #### C MREP #### [facility] [address] [place] [address] Dr. Erasmo Smith Hemoglobin (Bld) [Mass/Vol] 10.7 g/dL Critically low 12.0-16.0 [facility] Comment on above: Performed By: #### C MREP #### [facility] [address] [place] [address] Dr. Erasmo Smith IG # 0.03 10e3/ul Normal 0.00-0.03 [facility] Comment on above: Performed By: #### C MREP #### [facility] [address] [place] [address] Dr. Erasmo Smith IG % 0.3 % Normal 0.0-0.5 [facility] Comment on above: Performed By: #### C MREP #### [facility] [address] [place] [address] Dr. Erasmo Smith LYMPH # 2.8 103/ul Normal 1.2-3.8 [facility] Comment on above: Performed By: #### C MREP #### [facility] [address] [place] [address] Dr. Erasmo Smith Lymphocytes/100 WBC (Bld) 30.6 % Normal 20.5-60.0 [facility] Comment on above: Performed By: #### C MREP #### [facility] [address] [place] [address] Dr. Erasmo Smith MANUAL DIFF REQ NO Normal [facility] Comment on above: Performed By: #### C MREP #### [facility] [address] [place] [address] Dr. Erasmo Smith MCH (RBC) [Entitic mass] 26.9 pg Normal 26.7-34.0 [facility] Comment on above: Performed By: #### C MREP #### [facility] [address] [place] [address] Dr. Erasmo Smith MCHC (RBC) [Mass/Vol] 31.6 g/dL Normal 29.9-35.2 [facility] Comment on above: Performed By: #### C MREP #### [facility] [address] [place] [address] Dr. Erasmo Smith MCV (RBC) [Entitic vol] 85.2 fL Normal 81.0-99.0 [facility] Comment on above: Performed By: #### C MREP #### [facility] [address] [place] [address] Dr. Erasmo Smith MONO # 0.7 103/ul Normal 0.3-0.8 [facility] Comment on above: Performed By: #### C MREP #### [facility] [address] [place] [address] Dr. Erasmo Smith Monocytes/100 WBC (Bld) 7.9 % Normal 1.7-12.0 [facility] Comment on above: Performed By: #### C MREP #### [facility] [address] [place] [address] Dr. Erasmo Smith NEUT # 5.3 103/ul Normal 1.4-6.5 [facility] Comment on above: Performed By: #### C MREP #### [facility] [address] [place] [address] Dr. Erasmo Smith Neutrophils/100 WBC (Bld) 57.6 % Normal 43.0-75.0 [facility] Comment on above: Performed By: #### C MREP #### [facility] [address] [address] [address] Erasmo Smith Platelet mean volume (Bld) [Entitic vol] 9.0 fL Critically low 9.5-13.5 [facility] Comment on above: Performed By: #### C MREP #### [facility] [address] [address] [address] Erasmo Smith PLT 249 103/ul Normal 150-450 [facility] Comment on above: Performed By: #### C MREP #### [facility] [address] [place] [address] Dr. Erasmo Smith RBC 3.98 106/ul Critically low 4.20-5.40 [facility] Comment on above: Performed By: #### C MREP #### [facility] [address] [place] [address] Dr. Erasmo Smith WBC 9.1 103/ul Normal 4.0-11.0 [facility] Comment on above: Performed By: #### C MREP #### [facility] [address] [place] [address] Dr. Erasmo Smith CTA CHEST WO W [...] by: PAULA DELGADO Date: 2022-02-24 18:24 Normal [facility] D-DIMERon 02-24-2022 D-DIMER 1.36 mg/L FEU Critically high <=0.59 [facility] Comment on above: Performed By: #### D DIM #### [facility] [address] [place] [address] Dr. Erasmo Smith D-DIMER COMMENTS SEE BELOW Normal [facility] Comment on above: Result Comment: Incr eases [...] hospitalization. Performed By: #### D DIM #### [facility] [address] [address] [address] Erasmo Smith PROF 14(COMP METB)on 022 Albumin [Mass/Vol] 3.6 g/dL Normal 3.4-5.0 [facility] Comment on above: Performed By: #### C MREP #### [facility] [address] [place] [address] Dr. Erasmo Smith Albumin/Globulin [Mass ratio] 0.8 {ratio} Normal [facility] Comment on above: Performed By: #### C MREP #### [facility] [address] [place] [address] Dr. Erasmo Smith ALP [Catalytic activity/Vol] 95 U/L Normal 46-116 [facility] Comment on above: Performed By: #### C MREP #### [facility] [address] [place] [address] Dr. Erasmo Smith ALT [Catalytic activity/Vol] 45 U/L Normal 14-59 [facility] Comment on above: Performed By: #### C MREP #### [facility] [address] [address] [address] Erasmo Smith Anion gap [Moles/Vol] 15.9 mmol/L Normal [facility] Comment on above: Performed By: #### C MREP #### [facility] [address] [place] [address] Dr. Erasmo Smith AST [Catalytic activity/Vol] 33 U/L Normal 15-37 [facility] Comment on above: Performed By: #### C MREP #### [facility] [address] [place] [address] Dr. Erasmo Smith Bilirubin [Mass/Vol] 0.5 mg/dL Normal 0.2-1.0 [facility] Comment on above: Performed By: #### C MREP #### [facility] [address] [place] [address] Dr. Erasmo Smith Calcium [Mass/Vol] 9.1 mg/dL Normal 8.5-10.1 [facility] Comment on above: Performed By: #### C MREP #### [facility] [address] [place] [address] Dr. Erasmo Smith Chloride [Moles/Vol] 103 mmol/L Normal 98-107 [facility] Comment on above: Performed By: #### C MREP #### [facility] [address] [place] [address] Dr. Erasmo Smith CO2 [Moles/Vol] 25.1 mmol/L Normal 21.0-32.0 [facility] Comment on above: Performed By: #### C MREP #### [facility] [address] [place] [address] Dr. Erasmo Smith Creatinine [Mass/Vol] 0.77 mg/dL Normal 0.55-1.02 [facility] Comment on above: Performed By: #### C MREP #### [facility] [address] [address] [address] Erasmo Smith EGFR-AF ANGOLAN >60 Normal >=60 [facility] Comment on above: Performed By: #### C MREP #### [facility] [address] [address] [address] Erasmo Smith EGFR-NON AF ANGOLAN >60 Normal >=60 [facility] Comment on above: Performed By: #### C MREP #### [facility] [address] [address] [address] Erasmo Smith Globulin (S) [Mass/Vol] 4.3 g/dL Normal [facility] Comment on above: Performed By: #### C MREP #### [facility] [address] [place] [address] Dr. Erasmo Smith Glucose [Mass/Vol] 92 mg/dL Normal 74-106 [facility] Comment on above: Performed By: #### C MREP #### [facility] [address] [address] [address] Erasmo Smith Potassium [Moles/Vol] 4.0 mmol/L Normal 3.5-5.1 [facility] Comment on above: Performed By: #### C MREP #### [facility] [address] [address] [address] Erasmo Smith Protein [Mass/Vol] 7.9 g/dL Normal 6.4-8.2 [facility] Comment on above: Performed By: #### C MREP #### [facility] [address] [address] [address] Erasmo Smith Sodium [Moles/Vol] 140 mmol/L Normal 136-145 [facility] Comment on above: Performed By: #### C MREP #### [facility] [address] [address] [address] Erasmo Smith Urea nitrogen [Mass/Vol] 17.0 mg/dL Normal 7.0-18.0 [facility] Comment on above: Performed By: #### C MREP #### [facility] [address] [address] [address] Erasmo Smith Urea nitrogen/Creatinine [Mass ratio] 22.1 mg/mg Normal [facility] Comment on above: Performed By: #### C MREP #### [facility] [address] [address] [address] Erasmo Smith PROTIMEon 02-24-2022 INR Coag (PPP) [Relative time] 2.28 {INR} Normal [facility] Comment on above: Performed By: #### P T, PTT ####[facility] [address] [address]Dr. Erasmo Smith INR GUIDELINES SEE BELOW Normal [facility] Comment on above: Result Comment: ABNER RED INR: 2.0 - 3.0 CONDITIONS NOT LISTED BELOW 2.5 - 3.5 FOR PROSTHETIC HEART VALVE REPLACEMENT 2.5 - 3.5 RECURRENT THROMBOSIS Performed By: #### P T, PTT ####[facility] [address] [address]DrMeena Smith PT Coag (PPP) [Time] 23.3 s Critically high 9.0-11.6 [facility] Comment on above: Performed By: #### P T, PTT ####[facility] [address] [address]DrMeena Smith PTTon 02-24-2022 aPTT Coag (Bld) [Time] 34.7 s Normal 22.3-36.2 [facility] Comment on above: Performed By: #### P T, PTT ####[facility] [address] [address]Dr. Erasmo Smith TROPONIN, HIGH SENSITIVITYon 02-24-2022 HSTROP 6.6 pg/mL Normal 4.0-51.3 [facility] Comment on above: Result Comment: CUT- OFF POINTS HAVE BEEN ESTABLISHED BASED ON THE FOURTH UNIVERSAL DEFINITIONS OF MYOCARDIAL INFARCTION. THE UPPER REFERENCE LIMIT (URL) OF TROPONIN, DEFINED THE 99TH PERCENTILE OF cTnI DISTRIBUTION IN A REFERENCE POPULATION, HAS BEEN CONFIRMED THE DECISION THRESHOLD FOR DE DIAGNOSIS. Performed By: #### C MREP #### [facility] [address] [address] [address] Erasmo Smith PROTHROMBIN TIMEon INR Coag (PPP) [Relative time] 1.2 {INR} High 0.86-1.16 [facility] Comment on above: Result Comment: INR Theraputic Range: 2.0-3.5 Performed at [facility] [address] [facility] [address] PT Coag (PPP) [Time] 12.7 s Normal 9.3-12.7 [facility] ANTICOAGULANT COUMADIN Normal [facility] Vital Signs Date Time Vital Sign Value Performing Clinician Eyali litjoby 10-07-2021 16:00-0500 Body height 146.69 cm Hong Tonydevon Other [facility] Other 10-07-2021 16:00-0500 Body mass index (BMI) [Ratio] 51.01 kg/m2 Hong Tonydevon Other [facility] Other 10-07-2021 16:00-0500 Body weight 109.77 kg Hong Geri Other [facility] Other 08-26-2021 15:15-0500 Body height 146.69 cm Hong Geri Other [facility] Other 08-26-2021 15:15-0500 Body mass index (BMI) [Ratio] 51.07 kg/m2 Hong Geri Other [facility] Other 08-26-2021 15:15-0500 Body weight 109.91 kg Hong Geri Other [facility] Other Encounters Encounter Date Encounter Type Care Provider Facility Start: 11-16-2023 End: 11-16-2023 ambulatory Kayley Reeder Facility:[facility] Start: 10-17-2023 Cristobal Denis MD Work Phone: [facility] Start: 10-17-2023 Bamboo flowsheet Shaikh Cira CUBA Work Phone: [facility] Start: 10-17-2023 End: 10-17-2023 ambulatory SHAIKH CIRA Not Available Start: 10-11-2023 End: 10-11-2023 ambulatory MD Shaikh Denis Work Phone: [facility] Work Phone: Start: 10-11-2023 End: 10-11-2023 Patient encounter procedure MD Shaikh Denis Work Phone: [facility] [place] Work Phone: Start: 09-08-2023 End: 09-08-2023 ambulatory Claire Clement Facility:[facility] Start: 09-08-2023 End: 09-08-2023 ambulatory MD Shaikh Denis Work Phone: [facility] Work Phone: Start: 09-08-2023 End: 09-08-2023 Patient encounter procedure MD Shaikh Denis Work Phone: [facility] Start: 09-06-2023 End: 09-06-2023 ambulatory SHAIKH CIRA Not Available Start: 09-06-2023 Patient encounter procedure Shaikh Cira CUBA Work Phone: [facility] Start: 07-08-2023 End: 07-08-2023 ambulatory [facility] Start: 07-05-2023 End: 07-05-2023 ambulatory [facility] Start: 04-11-2023 End: 04-12-2023 [facility]ulatory [facility] Start: 03-01-2023 End: 03-01-2023 ambulatory [facility] Start: 01-31-2023 End: 02-01-2023 ambulatory ANDRIUS GIEDRAITIS Facility:[facility] Start: 01-28-2023 End: 01-29-2023 ambulatory ANDRIUS GIEDRAITIS Facility:[facility] Start: 01-11-2023 End: 01-12-2023 ambulatory Barbara Esposito Facility:[facility] Start: 01-10-2023 End: 02-09-2023 ambulatory SHAIKH Kymberly DENIS Facility:[facility] Start: 12-28-2022 End: 12-28-2022 ambulatory [facility] Start: 12-16-2022 End: 12-17-[address] DOCTOR KENNEDY Facility:[facility] Start: 12-13-2022 End: 01-07-[address] LUISANA FISHER . Facility:[facility] Start: 12-08-2022 End: 12-08-2022 ambulatory [facility] Start: 2022 End: 12-03-2022 Evaluation and management of inpatient KAYLEY RIVER . Facility:[facility] Start: 11-29-2022 ambulatory Barbara Esposito Facility:[facility] Start: 11-26-2022 End: 11-27-[address] LUISANA FISHER . Facility:[facility] Start: 11-10-2022 End: 11-10-2022 ambulatory [facility] Start: 11-10-2022 End: 12-10-2022 ambulatory SHAIKH [...] 10-07-2021 End: 10-07-2021 ambulatory Hong Nevarez Other [facility] Other Start: 10-07-2021 Office outpatient visit 15 minutes Hong Nevarez [facility] Start: 08-26-2021 End: 08-26-2021 ambulatory Hong Nevarez Other [facility] Other Start: 08-26-2021 Office outpatient ne w 45 minutes Hong Nevarez [facility] Start: 10-11-2020 End: 10-13-2020 Evaluation and management of inpatient ZANE MAYNOR Facility:[facility] Procedures Date Procedure Procedure Detail Performing [...] [facility] [address] [place] [id number] Shaikh Denis MD [address] [place] [id number] [facility] Start: 10-17-2023 End: 10-17-2023 Patient encounter procedure 10/17/2023 10:15 AM EST Office Visit [facility] [address] [place] [address] Shaikh Denis MD [address] [place] [id number] Arrived [facility] Comment on above: Arrived Start: 1945 Screening for malign ant neoplasm of colon [facility] Payers Date Payer Category Payer Private Health Insurance [id number] 2023 Self-pay [id number] 2023 Managed Care HMO (unspecified) OSEI FRANZ [id number] 2023-Present [address] [place] [address] HMO [id number] 2022 Private Health Insurance 2007 Medicare 1959 Medicare [id number] 1959 Private Health Insurance [facility] [id number] 1947 Unknown [id number] 2.16.840.1.451075.3.579.2. 647 1947 Unknown [id number] 2.16.840.1.168574.3.579.2. 727 1947 Unknown [id number] 2.16.840.1.611331.3.579.2. 593 1947 Unknown [id number] 2.16.840.1.388939.3.579.2. 593 1947 Unknown [id number] 2.16.840.1.934901.3.579.2. 593 1947 Unknown [id number] 2.16.840.1.756097.3.579.2. 593 1947 Unknown [id number] 2.16.840.1.202411.3.579.2. 593 1947 Unknown [id number] 2.16.840.1.804104.3.579.2. 593 1947 Unknown [id number] 2.16.840.1.961331.3.579.2. 593 1947 Unknown [id number] 2.16.840.1.570154.3.579.2. 593 1947 Unknown [id number] 2.16.840.1.730651.3.579.2. 593 1947 Unknown [id number] 2.16.840.1.032003.3.579.2. 593 1947 Unknown [id number] 2.16.840.1.163839.3.579.2. 593 1947 Unknown [id number] 2.16.840.1.092792.3.579.2. 593 1947 Unknown [id number] 2.16.840.1.488068.3.579.2. 593 1947 Unknown [id number] 2.840.1.011079.3.579.2. 593 1947 Unknown [id number] 2.840.1.275802.3.579.2. 593 1945 Unknown [id number] 2.840.1.342314.3.579.2. 593 1945 Unknown [id number] 2.840.1.966786.3.579.2. 593 1945 Unknown [id number] .840.1.067478.3.579.2. 593 1945 Unknown [id number] .840.1.051777.3.579.2. 593 1945 Unknown [id number] .840.1.583019.3.579.2. 593 1945 Unknown [id number] 2.840.1.786163.3.579.2. 593 1945 Unknown [id number] 2.16.840.1.156551.3.579.2. 593 1945 Unknown [id number] 2.16.840.1.427889.3.579.2. 593 1945 Unknown [id number] 2.840.1.087686.3.579.2. 593 1945 Unknown [id number] 2.16.840.1.658191.3.579.2. 593 1945 Unknown [id number] 2.16.840.1.633032.3.579.2. 593 1945 Unknown [id number] 2.16.840.1.677611.3.579.2. 196 1945 Unknown [id number] 2.16.840.1.613996.3.579.2. 196 1945 Unknown [id number] 2.16.840.1.966798.3.579.2. 1259 1945 Unknown [id number] 2.16.840.1.946691.3.579.2. 1259 Medicare Medicare Outpatient [id number] 1A [id number] Unknown [facility] [id number] Unknown [id number] 2.16.840.1.432673.3.579.2. 531 Unknown [id number] 2.16840.1.153312.3.579.2. 531 Unknown [id number] 2.16840.1.355230.3.579.2. 531 Social History Date Type Detail Facility Start: 08-30-2023 End: 09-06-2023 Sex Assigned At [facility] Start: 1945 Sex Assigned At Female F [facility] Start: 08-18-2023 [facility] History of tobacco [...] Healthcare How often do you att end pentecostalism or temple services? Patient refused [facility] Do you belong to any clubs or organizations such as pentecostalism groups, unions, fraternal or athletic groups, or [...] Start: 08-18-2023 Alcohol Comment (Audit-C) : Negative [facility] Start: 1945 Sex Assigned At Not on file [facility] Clinical Notes 08-26-2021 to 07-05-2023 Note [...] sick sinus syndrome s/p PPM 10/2020 dual-chamber [employer], COPD, mild CAD s/p cardiac cath [...] could not afford DOAC. Patient underwent dual-chamber [employer] pacemaker placement on 10/13/2020. On subsequent [...] both knees Hypocalcemi (more content not included)... [facility] 03-01-2023 Note MA Electrophysiology Consult Note Reason for visit: 6-month [...] sick sinus syndrome s/p PPM 10/2020 dual-chamber [employer], COPD, mild CAD s/p cardiac cath [...] could not afford DOAC. Patient underwent dual-chamber [employer] pacemaker placement on 10/13/2020. On subsequent [...] KNEE ARTHROPLASTY Bi (more content not included)... [facility] 12-13-2022 Note [id number] #1.00CD:127 [address] [facility] 12-08-2022 Note Cardiology Clinic No te Subjective Breann Starks is a 77 y.o. year old female patient with past medical history of paroxysmal supraventricular tachycardia status post ablation x3 2005, atrial fibrillation on warfarin and flecainide, sick sinus syndrome status post pacemaker, hypertension, COPD, coronary angiography in 2010 which showed mild CAD, seen in posthospitalization follow-up from [facility]. She was seen by cardiology in [...] dysfunction. Left atri (more content not included)... [facility] 11-18-2022 Note Obesity is slightly improving -She was to 255 pounds last visit and today she is 241 pounds -Advised to continue working on weight loss and lifestyle changes [facility] 11-18-2022 Note - S/p PPM [employer] -We will have her scheduled for device check [facility] 11-18-2022 Note -device check in may <1% AF, had 1 mode switch which lasted 6 seconds -will have her get device check to assess AF burden -[id number] -Continue Xarelto 20 mg daily, continue propafenone to 25 mg 3 times a day [facility] 11-18-2022 Note Hypertension is stab le -ct medications: aldactone, verapamil, lasix 20mg -managed per PCP [facility] 11-18-2022 Note Coronary artery dise ase is stable -no CP or LEA -last cath 2010, mild disease no PCI / stent -continue medications [facility] 11-10-2022 Note Patient is here toda y for a 6 month follow up Review of Systems Constitutional: Positive for weight loss. Cardiovascular: Positive for palpitations. All other systems reviewed and are negative. [facility] 11-10-2022 Note MA Electrophysiology Consult Note Reason for visit: 6-month follow-up HPI: Breann Starks is a 76 y.o. year old with past medical history of A-fib, atrial tachycardia s/p ablation 2005, sick sinus syndrome s/p PPM 10/2020 dual-chamber [employer], COPD, mild CAD s/p cardiac cath [...] could not afford DOAC. Patient underwent dual-chamber [employer] pacemaker placement on 10/13/2020. On subsequent [...] Not on f (more content not included)... [facility] 10-07-2021 Evaluation note Encounter Date Diagnosis Assessment Notes Sep, LOJA (nonalcoholic steatohepatitis ) (ICD-10 - K75.81) OBTAIN FIBROSURE RESULTS FROM [facility] ON RESULTS PT ENCOURAGED WEIGHT LOSS RTO ONE YEAR WITH LABS ANNUALLY Sep, Unspecified cirrhosis of liver (ICD-10 - K74.60) [facility] 12-15-2021 Evaluation note* Encounter Date Diagnosis Assessment Notes Treatment Notes Treatment Clinical Notes Aug, Nonalcoholic steatohepatitis (LOJA) (ICD-10 - K75.81) RTO 6-8 WEEKS Aug, Unspecified cirrhosi s of liver (ICD-10 - K74.60) Aug, Morbid obesity (ICD- 10 - E66.01) [facility] Other Evaluation noteNo assessment information available [facility] Work Phone: History general Narrative [...] Surgical History pacemaker Hospitalization History see above [facility] Other Summary Purpose Family History No Family [...] and content) DATE CREATED AUTHOR 10/23/2021 [facility] DATE CREATED AUTHOR AUTHOR'S ORGANIZ ATION 01/22/2022 [facility] DATE CREATED AUTHOR AUTHOR'S ORGANIZ ATION 01/14/2023 [facility] DATE CREATED AUTHOR AUTHOR'S ORGANIZ ATION 02/18/[address] [facility] DATE CREATED AUTHOR AUTHOR'S ORGANIZ ATION 05/03/2023 [facility] DATE CREATED AUTHOR AUTHOR'S ORGANIZ ATION 07/10/2023 [facility] DATE CREATED AUTHOR AUTHOR'S ORGANIZ ATION 10/17/2023 [facility] EPIC DATE CREATED AUTHOR AUTHOR'S ORGANIZ ATION 11/27/2023 [facility] REASON FOR VISIT (unrecogniz ed section [...] October 11, 2023 End: October 11, 2023 Strategy Planning Consultant Relationship Specialty Start Date End Date Shaikh [...] BE BASED ON THE PRIMARY CLINICAL RECORDS. [employer] [facility]. provides no warranty or guarantee of the accuracy or completeness of information in this document.
== END 2023-12-12 12:50 | disposition home or self-care (01) ==
LOC: RAD 12:49
PROVIDERS: PCP Internal Medicine; Visit Provider Nurse Practitioner Family
DX: Z78.0 Asymptomatic menopausal state (principal)
CPT/HCPCS: 77080

== ENCOUNTER 2023-12-26 07:48 | Day surgery (SDC) | payer MEDICARE, SELFPAY ==
[2023-12-26 08:10] VITALS: BP 139/66; PULSE 71; TEMP 36.4; O2SAT 100
[2023-12-26] MEDS: LIDOCAINE HCL 2% PF 100 MG/5 ML VIAL INJ (09:03)
[2023-12-26] MEDS: IOHEXOL 240 MG/ML - 10 ML VIAL INJ (09:03)
[2023-12-26] MEDS: BUPIVACAINE HCL 0.25% PF 25 MG/10 ML VIAL INJ (09:03)
[2023-12-26] MEDS: TRIAMCINOLONE ACETONIDE 40 MG/ML VIAL INJ (09:03)
[2023-12-26] MEDS: 0.9 % SODIUM CHLORIDE 10 ML INJ (09:03)
[2023-12-26 09:04] VITALS: BP 133/87; BP 147/66; PULSE 62; PULSE 67; O2SAT 93; O2SAT 99
--- NOTE | 2023-12-26 09:06 | W.PM.PROCNOT ---
Date of procedure: 12/26/23 Pre-op diagnosis: Lumbar stenosis with neurogenic claudication Post-op diagnosis: same as pre-op Procedure: Procedure: Bilateral L5-S1 transforaminal epidural steroid injection Medications: Bupivacaine 0.25% 2cc, lidocaine 2% 1cc, kenalog 80mg The patient was seen and examined in the preoperative holding area.? Informed consent was obtained and placed on the chart.? Patient was brought to the medical procedure unit and placed in the prone position where a timeout was completed verifying the correct patient, procedure site, position, and planned special equipment using sterile aseptic technique.? Under direct fluoroscopic visualization a 25-gauge Quincke tipped spinal needle was advanced at level left L5-S1 to the designated neural foramen where contrast dye was injected to show adequate spread.? There was no evidence of vascular or adverse uptake.? Epidural spread was appreciated.? The above-mentioned injectate was then placed in a 1.5 mL aliquot preceded by negative aspiration.? The needle was removed. The same procedure, at the same level, was completed on the opposite side. ? Patient was taken to the postprocedural recovery area and monitored for an appropriate length of time before found suitable for discharge in the accompaniment of a responsible adult. Anesthesia: Local Surgeon: Miguel Murphy Pathology: none sent Condition: stable Disposition: no change
== END 2023-12-26 09:11 | disposition home or self-care (01) ==
PROVIDERS: PCP Internal Medicine; Visit Provider Anesthesiology
DX: M48.062 Spinal stenosis, lumbar region with neurogenic claudication (principal)
CPT/HCPCS: 64483; Q9966

== ENCOUNTER 2024-01-18 11:03 | Outpatient (OUT) | payer MEDICARE, SELFPAY ==
--- NOTE | 2024-01-18 11:38 | P.CN_ITS ---
Consult Note: HPI Data of Consult Patient: known to practice within the last 3 years Consult date: 11/24/23 Requesting Physician: Claire lCement NP Primary Care Provider: Shaikh Cira MD Consult Narrative Reason for consult: f/u Narrative: Breann Starks a pleasant 77 year old female presents for evaluation and manag ement of chronic low back pain with radiculopathy and NC. MRI of lumbar spine consistent with degenerative changes and lumbar stenosis. Patient following with NS who recommended ESIs prior to surgical intervention. Pt has failed PT/HEP greater than 6 weeks and conservative medications. Recently underwent bilateral L4/5 TFESI and bilateral L5/S1 TFESI with 85% improvement in pain and functional ability ongoing. Pain 0/10 increasing to 0/10 per patient. cc:: CC: Claire Clement NP Review of Systems 2 ROS Status of ROS 10 or more systems reviewed and unremark able except as noted in history and below [facility] Medical History Fatty liver ?K76.0 - Fatty (change of) liver, not elsewhere classified (ICD-10) History of shingles ?Z86.19 - Personal history of other infectious and parasitic diseases (ICD- 10) Osteoarthritis ?M19.90 - Unspecified osteoarthritis, unspecified site (ICD-10) Pacemaker ?Z95.0 - Presence of cardiac pacemaker (ICD-10) Hiatal hernia ?K44.9 - Diaphragmatic hernia without obstruction or gangrene (ICD-10) Low back pain ?M54.50 - Low back pain, unspecified (ICD-10) Irregular heart beat ?I49.9 - Cardiac arrhythmia, unspecified (ICD-10) Surgical History S/P rotator cuff repair ?Z98.890 - Other specified postprocedural states (ICD-10) History of colonoscopy ?Z98.890 - Other specified postprocedural states (ICD-10) S/P YANELI-BSO ?Z90.710 - Acquired absence of both cervix and uterus (ICD-10) ?Z90.722 - Acquired absence of ovaries, bilateral (ICD-10) ?Z90.79 - Acquired absence of other genital organ(s) (ICD-10) H/O cardiac catheterization ?Z98.890 - Other specified postprocedural states (ICD-10) H/O arthroscopy of shoulder ?Z98.890 - Other specified postprocedural states (ICD-10) H/O arthroscopy of knee ?Z98.890 - Other specified postprocedural states (ICD-10) History of appendectomy ?Z90.49 - Acquired absence of other specified parts of digestive tract (ICD- 10) History of total knee arthroplasty ?Z96.659 - Presence of unspecified artificial knee joint (ICD-10) Meds Home Medications and Allergies Home Medications ?Medication ?Instructions ?Recorded ?Confirmed ?Type cholecalciferol (vitamin D3) 125 5,000 unit PO DAILY 02/16/23 12/26/23 History mcg (5,000 unit) tablet (Vitamin D3) flecainide 100 mg tablet 100 mg PO Q12H 02/16/23 12/26/23 History omeprazole 40 mg capsule,delayed 40 mg PO DAILY 02/16/23 12/26/23 History release spironolactone 25 mg tablet 25 mg PO DAILY 02/16/23 12/26/23 History (Aldactone) verapamil 180 mg tablet,extended 180 mg PO DAILY 02/16/23 12/26/23 History release (Calan SR) apixaban 5 mg tablet (Eliquis) 5 mg PO BID 05/11/23 12/26/23 History Allergies Allergy/AdvReac Type Severity Reaction Status Date / Time No Known Drug Allergies Allergy Verified 12/26/23 08:14 Exam Constitutional Documenting provider has reviewed patient's vital signs: yes Common normals: no apparent distress, oriented x3, healthy appearing, alert and well nourished General appearance: cooperative Nutritional appearance: overweight [facility] Common normals: normocephalic, hearing grossly normal bilaterally and moist oral mucous membranes Head and scalp: normocephalic Eye Common normals: PERRL Pupil: PERRL Neck & C-Spine Common normals: full ROM General: normal visual inspection Chest Common normals: inspection of chest normal Respiratory Common normals: normal respiratory effort, no retractions and no use of accessory muscles Back & Pelvis Common normals: no CVA tenderness, thoracic and lumbar spine normal to inspection, no thoracic nor lumbar tenderness and thoraco-lumbar ROM normal Lumbar spine/lower back: normal to inspection, lumbar ROM normal and straight leg raise negative bilaterally Sacroiliac joints: SI joints normal Other: strength 5/5 in BLE sensation intact BLE Extremity Common normals: normal to inspection and full ROM Neuro Common normals: oriented x3, CN's II-XII intact bilaterally, moves all extremities, no focal motor deficits, no sensory deficits noted, deep tendon reflexes 2+ bilaterally and gait normal Sensorium/orientation: alert Speech: speech normal Gait (neuro): normal gait Motor exam: strength 5/5 throughout and no movement abnormalities noted Other: sensation intact BUE BLE Psych Common normals: mental status grossly normal, thought process normal, cooperative, affect normal, speech normal and activity/motor behavior normal Speech: normal speech Thought process: normal thought process Assessment and Plan Assessment and Plan (1) Lumbar stenosis with neurogenic claudication: (2) Lumbar spondylosis: Plan bilateral L4-5 TFESI followed by bilateral L5-S1 TFESI under fluoroscopy providing significant improvement ongoing reporting greater than 50% improvement ongoing in axial low back post RFAs 04/03 [employer] reviewed and signed continue f/u with NS, trialing gabapentin 300mg BID without benefit f/u 3 months, sooner if needed not a vertiflex candidate due to obesity and facet anatomy
== END 2024-01-18 11:04 | disposition home or self-care (01) ==
LOC: PM 11:03
PROVIDERS: PCP Internal Medicine; Visit Provider Nurse Practitioner
DX: M48.062 Spinal stenosis, lumbar region with neurogenic claudication (principal); M47.816 Spondylosis without myelopathy or radiculopathy, lumbar region
CPT/HCPCS: G0463

== ENCOUNTER 2024-02-15 08:44 | Outpatient (OUT) | payer MEDICARE, SELFPAY ==
--- NOTE | 2024-02-15 08:44 | P.CN_ITS ---
Consult Note: HPI Data of Consult Patient: known to practice within the last 3 years Requesting Physician: Claire Clement NP Primary Care Provider: Shaikh Cira MD Consult Narrative Reason for consult: shoulder pain Narrative: Breann Starks a pleasant 78 year old female, known to use for chronic low back pain, presents for evaluation and management of left shoulder pain and low back left leg. Patient woke up this AM with 12/10 pain in left shoulder, which started yesterday after she scratched her back and now she cannot lift her arm. Hx of reverse shoulder surgery and has had mild-moderate pain since. Patient reporting weakness, denies numbness tingling of left arm. Noticing increase in left leg radiculopathy, right sided radicular pain continues to have significant improvement after prior bilateral L4-5 TFESI and bilateral L5-S1 TFESI. cc:: CC: Claire Clement NP Review of Systems ROS Status of ROS 10 or more systems reviewed and unremark able except as noted in history and below Musculoskeletal Reports: back pain and joint pain PFSH PFSH Medical History Fatty liver ?K76.0 - Fatty (change of) liver, not elsewhere classified (ICD-10) History of shingles ?Z86.19 - Personal history of other infectious and parasitic diseases (ICD- 10) Osteoarthritis ?M19.90 - Unspecified osteoarthritis, unspecified site (ICD-10) Pacemaker ?Z95.0 - Presence of cardiac pacemaker (ICD-10) Hiatal hernia ?K44.9 - Diaphragmatic hernia without obstruction or gangrene (ICD-10) Low back pain ?M54.50 - Low back pain, unspecified (ICD-10) Irregular heart beat ?I49.9 - Cardiac arrhythmia, unspecified (ICD-10) Surgical History S/P rotator cuff repair ?Z98.890 - Other specified postprocedural states (ICD-10) History of colonoscopy ?Z98.890 - Other specified postprocedural states (ICD-10) S/P YANELI-BSO ?Z90.710 - Acquired absence of both cervix and uterus (ICD-10) ?Z90.722 - Acquired absence of ovaries, bilateral (ICD-10) ?Z90.79 - Acquired absence of other genital organ(s) (ICD-10) H/O cardiac catheterization ?Z98.890 - Other specified postprocedural states (ICD-10) H/O arthroscopy of shoulder ?Z98.890 - Other specified postprocedural states (ICD-10) H/O arthroscopy of knee ?Z98.890 - Other specified postprocedural states (ICD-10) History of appendectomy ?Z90.49 - Acquired absence of other specified parts of digestive tract (ICD- 10) History of total knee arthroplasty ?Z96.659 - Presence of unspecified artificial knee joint (ICD-10) Meds Home Medications and Allergies Home Medications ?Medication ?Instructions ?Recorded ?Confirmed ?Type cholecalciferol (vitamin D3) 125 5,000 unit PO DAILY 02/16/23 12/26/23 History mcg (5,000 unit) tablet (Vitamin D3) flecainide 100 mg tablet 100 mg PO Q12H 02/16/23 12/26/23 History omeprazole 40 mg capsule,delayed 40 mg PO DAILY 02/16/23 12/26/23 History release spironolactone 25 mg tablet 25 mg PO DAILY 02/16/23 12/26/23 History (Aldactone) verapamil 180 mg tablet,extended 180 mg PO DAILY 02/16/23 12/26/23 History release (Calan SR) apixaban 5 mg tablet (Eliquis) 5 mg PO BID 05/11/23 12/26/23 History baclofen 10 mg tablet 10 mg PO TID #90 tabs 02/15/24 Rx hydrocodone 5 mg-acetaminophen 325 1 tab PO BID #6 tabs 02/15/24 Rx mg tablet methylprednisolone 4 mg tablets in 4 mg PO DAILY #21 ea 02/15/24 Rx a dose pack (Medrol (Curt)) Allergies Allergy/AdvReac Type Severity Reaction Status Date / Time No Known Drug Allergies Allergy Verified 12/26/23 08:14 Exam Constitutional Documenting provider has reviewed patient's vital signs: yes Common normals: no apparent distress, oriented x3, healthy appearing, alert and well nourished General appearance: cooperative [facility] Common normals: normocephalic, hearing grossly normal bilaterally and moist oral mucous membranes Head and scalp: normocephalic Eye Common normals: PERRL Pupil: PERRL Neck & C-Spine Common normals: full ROM General: normal visual inspection Chest Common normals: inspection of chest normal Respiratory Common normals: normal respiratory effort, no retractions and no use of accessory muscles Back & Pelvis Lumbar spine/lower back: ROM limited, pain with ROM and straight leg raise negative bilaterally Extremity Left upper extremity: shoulder joint Other: significant pain over posterior shoulder, tender to touch. Unable to raise left arm over head, significant pain with left posterior lift off and crossbody abduction. strength 3/5 in LUE. no tendnerss over rotator cuff insertion, no edema noted. Neuro Common normals: oriented x3, CN's II-XII intact bilaterally, moves all extremities, no focal motor deficits, no sensory deficits noted and deep tendon reflexes 2+ bilaterally Sensorium/orientation: alert Motor exam: strength 5/5 throughout and no movement abnormalities noted Psych Common normals: mental status grossly normal, thought process normal, cooperative, affect normal, speech normal and activity/motor behavior normal Speech: normal speech Thought process: normal thought process Results Additional Findings Additional findings: If on a controlled substance or opioids, I have checked an [place]AR[place] report on this patient and there are no aberrancies noted in the prescribing history.??If on a controlled substance or opioid a drug screen was completed and reviewed within the last year, and if there has not been a drug screen completed we ordered one today to monitor higher risk, state monitored pain medication use. As part of providing excellent, safe, comprehensive care, the following was completed at our patient's visit: 1. A medication reconciliation and review to ensure accurate knowledge of current/active medications, including asking our patients to inform us about any [id number] medications or herbal remedies/nutritional supplements/alternative remedies. 2. A review to specifically ensure our patients have had annual screening for screening for depression, screening for tobacco use, and screening for unhealthy alcohol use. For concerning screenings had a discussion with the patient, provided patient education, and recommended follow-up with primary care provider when appropriate. If patient noted with a risk of falling, they received education on strength, gait, and balance training to prevent future risk of falling. Assessment and Plan Assessment and Plan (1) Acute pain of left shoulder: (2) Chronic left shoulder pain: (3) Lumbar stenosis with neurogenic claudication: Plan acute on chronic left shoulder pain, medrol dose pack start baclofen 10mg TID PRN myofascial pain spasms Waldron 5-325mg BID PRN 3 day supply for acute on chronic severe left shoulder pain continue HEP for left shoulder pain as tolerated no longer on gabapentin, noticed side effects f/u 1 month, sooner if needed
--- OUTSIDE RECORDS SUMMARY | 2024-02-15 08:48 | XMS_ITS | CCD ---
Author Organization [facility] Care Team Providers Care Entrepreneurial Finance Professor Name Role Phone ZANE MCGUIRE Admitting Unavailable YANCY HENNESSY Referring Unavailable LUISANA FISHER Primary Care Unavailable ZANE MCGUIRE Attending Unavailable YANCY HENNESSY Surgeon Unavailable NE Procedure Practitioner UnavailHong Ambrose Unavailable Barbara Esposito Attending Unavailable FISHER ., DR LUISANA Herbert Primary Care Unavailable FISHER ., DR LUISANA Herbert Admitting Unavailable FISHER ., DR LUISANA Herbert Attending Unavailable FISHER ., DR LUISANA Herbert Consulting Unavailable FISHER ., DR LUISANA Herbert Primary Care Unavailable FAWWAAlysa, CAMACHO H Attending Unavailable FAWWAD, CAMACHO H Admitting Unavailable FAWWAD, CAMACHO H Admitting Unavailable FAWMADHURI, CAMACHO H Attending Unavailable FISHER ., DR LUISANA [...] ., DR LUISANA Herbert Consulting Unavailable FAWWAD, CAMACHO H Attending Unavailable FAWWAD, CAMACHO H Admitting Unavailable FISHER ., DR LUISANA Herbert Primary Care Unavailable FAWWAD, CAMACHO H Attending Unavailable FAWWAD, CAMACHO H Admitting Unavailable FISHER ., DR LUISANA [...] DR LUISANA Herbert Primary Care Unavailable FAWWAD, CAMACHO H Attending Unavailable FAWWAD, CAMACHO H Admitting Unavailable FISHER ., DR LUISANA Herbert Primary Care Unavailable FAWWAD, CAMACHO H Attending Unavailable FAWWAD, CAMACHO H Admitting Unavailable FISHER ., DR LUISANA Herbert Primary Care Unavailable FAWWAD, CAMACHO H Attending Unavailable FAWWAD, CAMACHO H Admitting Unavailable FISHER ., DR LUISANA Herbert Primary Care Unavailable FAWWAD, CAMACHO H Attending Unavailable FAWWAD, CAMACHO H Admitting Unavailable FISHER ., DR LUISANA Herbert Primary Care Unavailable FAWWAD, CAMACHO H Attending Unavailable FAWWAD, CAMACHO H Admitting Unavailable REQUEST, DR NONE LISTED Primary Care Unavaila ble FISHER ., DR LUISANA Herbert Primary Care Unavailable FAWWAD, CAMACHO H Attending Unavailable FAWWAD, CAMACHO H Admitting Unavailable MISC, DR ODELL Admitting Unavailable MISC, DR ODELL Attending Unavailable MISC, DR ODELL Consulting Unavailable FISHER ., DR LUISANA Herbert Primary Care Unavailable SAMSA ., LUIZ Admitting Unavailable SAMSA ., LUIZ Attending Unavailable ZIEBER, DR PAULA Bishop Consulting Unavailable FISHER ., DR LUISANA Herbert Primary Care Unavailable SAMSA ., LUIZ Consulting Unavailable GIEDRAITIS, ANDRIUS Admitting Unavailable GIEDRAITIS, ANDRIUS Attending Unavailable ZIREGINO, DR PAULA Bishop Consulting Unavailable REQUEST, DR GARCIA LISTED Primary Care Unavaila ble GIEDRAITIS, ANDRIUS Consulting Unavailable FISHER ., DR LUISANA Herbert Admitting Unavailable FISHER ., DR LUISANA Herbert Primary Care Unavailable FISHER ., DR LUISANA Herbert Attending Unavailable FISHER ., DR LUISANA Herbert Consulting Unavailable ZIEBER, DR PAULA Bishop Consulting Unavailable HAY ., DR DE LEON Admitting Unavailable HAY ., DR DE LEON Attending Unavailable FISHER ., DR LUISANA Herbert Primary Care Unavailable NICHOLECHIRENE .DANIELLE Consulting Unavailpriyanka herbert RIVER ., KAYLEY Admitting Unavailable RIVER ., KAYLEY Attending Unavailable [place], DR HONG Morgan Consulting Unavailable FISHER ., [...] DR LUISANA Herbert Primary Care Unavailable FAWWAD, CAMACHO H Attending Unavailable FAWWAD, CAMACHO H Admitting Unavailable SAMSA ., LUIZ Admitting Unavailable SAMSA ., LUIZ Attending Unavailable SAMSA ., LUIZ Consulting Unavailable FISHER ., DR LUISANA Herbert Primary Care Unavailable THANG Clement Attending Provider MD Santos Denisikh Primary Care Provider [phone] THANG Clement Attending Provider Cira CUBA [facility] Primary Care Provider [phone] Claire Clement Admitting Unavailable Claire Clement Attending Unavailable [facility], Camacho Primary Care Unavailable Kayley Reeder Admitting Unavailable Kayley Reeder Attending Unavailable Fafrancy, Camacho Primary Care Unavailable Claire Clement Admitting Unavailable Claire Clement Attending Unavailable Cira, Camacho Primary Care Unavailable FAFRANCY, CAMACHO Attending Unavailable FAWWAAlysa, CAMACHO Attending Unavailable FAWMADHURI, CAMACHO Attending Unavailable CIRA, CAMACHO Attending Unavailable Giedraitis , Andrius Alistair Attending Unavailable Giedraitis , Andrius Alistair Attending Unavailable Gityroneitis , Andrius Vrenee Attending Unavailable Gityroneitis , Andrius Alistair Attending Unavailable YANCY HENNESSY Referring Unavailable YANCY HENNESSY Attending Unavailable YANCY HENNESSY Attending Unavailable NICANOR DINH Attending Unavailable YANCY HENNESSY Referring Unavailable Allergies Allergy Classification Reported Allergen(s) Allergy Type Date of Onset Reaction(s) Facility (1 source) julacaine; Translations: [novacaine] Propensity to adverse reactions (disorder) 2 [facility] Repository (2 sources) NSAIDs Propensity to adverse reactions HEART ISSUES [employer] Other (1 source) meloxicam; Translations: [Mobic] Drug Allergy [facility] Repository (1 source) No Known Medication Allergies; Translations: [No Known Medication Allergies] Propensity to adverse reactions (disorder) [facility] Repository (1 source) Adhesive agent Drug allergy (disorder) [address] [place] [address] Repository (1 source) NSAIDs Drug allergy (disorder) [address] [place] [address] Repository Medications Current Medications Medication Drug Class(es) [...] 0 10/13/2023 Active take 1 capsule by [facility] every twenty-four hours Omeprazole 40 MG 1 [...] 02/14/2023 02/14/2024 Active take 1 capsule by [facility] every twenty-four hours Verapamil HCl ER 360 [...] Problem Date Documented Date Episodic/Chronic Cardiac dysrhythmias (7 sources) Unspecified atrial fibrillation; Translations: [Paroxysmal atrial fibrillation] Onset: 2 09-06-2023 Chronic Chronic obstructive pulmonary disease and bronchiectasis (7 sources) Chronic obstructive pulmonary disease, unspecified; Translations: [Centrilobular emphysema] Onset: 2 Chronic Conduction disorders (3 sources) Presence of cardiac pacemaker; Translations: [Encounter for checking and testing of cardiac pacemaker pulse generator [battery]] Onset: 3 Chronic Congestive heart failure; nonhypertensive (1 source) Chronic diastolic (congestive) heart failure; Translations: [CHRONIC DIASTOLIC HEART FAILURE] Onset: 3 Chronic Coronary atherosclerosis and other heart disease (2 sources) Atherosclerotic heart disease of [place] coronary artery without angina pectoris; Translations: [Coronary atherosclerosis] Onset: 2 09-06-2023 Chronic Disorders of lipid metabolism (1 source) Hyperlipidemia, unspecified; Translations: [HYPERLIPIDEMIA UNSPECIFIED] Onset: 3 Chronic Essential hypertension (1 source) Essential hypertension; Translations: [Essential (primary) hypertension] Onset: 2 09-06-2023 Chronic Gastroduodenal ulcer (except hemorrhage) (1 source) [...] Translations: [CHEST PAIN UNSPECIFIED] Onset: 3 Episodic Osteoarthritis (4 sources) Arthritis of acromioclavicular joint; Translations: [Primary osteoarthritis, right shoulder] Onset: 3 09-06-2023 Chronic Other aftercare (4 sources) Encounter for therapeutic drug level monitoring; Translations: [ENC THERAPEUTC DRUG LEVL MONITORING] Onset: 3 Episodic Other aftercare (1 source) 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; Translations: [FCI CURRNT USE 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] Onset: 3 Episodic Other aftercare (1 source) Other senior care (current) drug therapy; Translations: [OTH HOME VISITOR HOME BASE HEAD START CURRENT DRUG THERAPY] Onset: 3 Episodic Other [...] Chronic Other nutritional; endocrine; and metabolic disorders (2 sources) Morbid (severe) obesity due to excess [...] UNSPECIFIED; Translations: [COUGH, UNSPECIFIED] Onset: 2 Unclassified (1 source) Encounter for checking and testing of cardiac pacemaker pulse generator [battery]; Translations: [Encounter for checking and testing of cardiac pacemaker pulse generator [battery]] Onset: 3 Past or Other Problems Problem Classification Problem Date Documented Da te Episodic/Chronic Fracture of lower limb (4 sources) Closed fracture of fifth metatarsal bone; Translations: [Displaced fracture of fifth metatarsal bone, left foot, initial encounter for closed fracture] Episodic Mood disorders (1 source) Mood disorders Onset: 09-06-2023 09-06-2023 Other connective tissue disease (2 sources) Pain of left hand; Translations: [Pain in left hand] Episodic Other connective tissue disease (2 sources) Pain in left foot; Translations: [Pain in left foot] Episodic Other connective tissue disease (2 sources) Impingement syndrome of right shoulder region; Translations: [Impingement syndrome of right shoulder] Episodic Other gastrointestinal disorders (2 sources) Dysphagia; [...] Test Name Value Interpretation Reference Range Facility 36on 01-25-2024 36 Patient called stating ever since her device was adjusted last month she's had this weird feeling in her throat. I called Sony Asif from [employer] and he told me this feeling she's having should not be from her device. Patient informed. I suggested she see PCP for this. She verbalized understanding. Normal [facility] Office Visiton 01-17-2024 Follow-up visit [id number] Breann Starks 1945 F Date Provider Department Center 01/17/2024 NICANOR REGAN Family History Adopted: Yes Family history unknown: Yes Family Status - Relation Status Age at Mother Father Level of Service:23882 NE OFFICE/OUTPATIENT ESTABLISHED MOD MDM 30 MIN Reason for Visit and Comments: Atrial Fibrillation [80] Normal [facility] XR lumbar spine 6V w bending on 11-16-2023 XR lumbar spine 6V w bending [facility] [place] [address] XRay Report Signed Patient: Breann Starks MR#: [id number] 171 : 1945 Acct:[id number] Age/Sex: 77 / F ADM Date: 11/16/23 Loc: XD Room: Type: [facility] Attending Dr: Kayley DESIR Copies to: THANG [...] Impression dictated by: Francisco J Benton Jr., DMeenaOMeena11/16/2023 4:37 PM Dictation Location: [place] [address] Transcribed By: [facility] 11/16/23 1637 Dictated By: Francisco J Benton Jr, DO 11/16/23 1636 Signed By: 11/16/23 1637 [facility] MR lumbar spine wo conon MR lumbar spine wo con [facility] Main [place] [address] [place] [address] XRay Report Signed Patient: Breann Starks MR#: [id number] : 1945 Acct:[id number] Age/Sex: 77 / F ADM Date: 10/11/23 Loc: Room: Type: [facility] Attending Dr: Claire DESIR Copies to: THANG Porter Ordering Provider: THANG Porter Date of Service: 10/11/23 MR/MR lumbar spine wo con: LUMBAR RADICULPATHY ([id number]) XR/XR pre/post mri xray: LUMBAR RADICULPATHY CLINICAL [...] Eleanor Reece M.D.10/11/2023 4:10 PM Dictation Location: [facility]--12 Transcribed By: [facility] 10/11/23 161 Dictated By: Eleanor Reece MD 10/11/23 1133 Signed By: 10/11/23 1610 [facility] Office Visiton 07-05-2023 Follow-up visit [id number] Kj Starksa 1945 Date Provider Department Center 07/05/2023 YANCY IVERSON Family History Adopted: Yes Family history unknown: Yes Family Status - Relation Status Age at Mother Father Level of Service:45474 NE OFFICE/OUTPATIENT ESTABLISHED LOW MDM 20-29 MIN Normal [facility] Office Visiton 03-01-2023 Follow-up visit [id number] Breann Starks 1945 Date Provider Department Center 03/01/2023 YANCY IVERSON Family History Adopted: Yes Family history unknown: Yes Family Status - Relation Status Age at Mother Father Level of Service:63296 NE OFFICE/OUTPATIENT ESTABLISHED MOD MDM 30-39 MIN Reason for Visit and Comments: Follow-up [252004] - 3 month follow up Normal [facility] XR LSPINE W_OBLS AND FLEX_EX Ton [...] by: PAULA DELGADO Date: 2023-01-31 11:34 Normal [facility] Physician Referralon 023 Physician Referral [id number] #1.00CD:127 Normal [facility] Ambulatory Visit Summaryon 0 01-11-2023 Ambulatory Visit Summary BREANN STARKS :1945 Visit Date:01/11/2023 Ambulatory Visit Instructions Your Diagnosis Sciatica of left side Myalgia BMI 50.0-59.9, adult Morbid obesity due to excess calories Your Care Team Attending Physician - Barbara Dia Primary Care Physician - Barbara Dai This [...] Someone Will Contact You Regarding These Appointments [facility] External Ambulatory Referral, Patient choice/referral by family/friend, Pain Management, [facility] Pain managment., 01/11/23 11:02:00 EDT, Sciatica of left side Normal [facility] Ambulatory Visit Summary BREANN STARKS :1945 [...] longer receiving treatment for. Depression Migraines Normal [facility] Family Medicine Office/Clini c Noteon 01-11-2023 Family Medicine Office/Clinic Note HPI Staff Breann is a 77 year old female who presents today to [facility]. Establish Care: History: A fib, COPD, OA of LS and bilateral knees, PSVT, fatty liver, cervical radiculopathy, pacemaker, cirrhosis of the liver History of specialists: Dr. Gonzales, Dr. Kaur-Cardiology, Dr. Martin- chiropractor, [facility] Last provider: Elizabeth Any recent labs: Jul 2022 Health Maintenance UTD: Colonoscopy: 2012, pt is due Mammogram: December 2022 at [facility] which was normal Pelvic/Pap: pt had [...] longer taking that. will refer back to [facility]. All questions answered. RTC as needed Ordered: methylPREDNISolone, = 1 packet(s), Oral, As Directed, as directed on package labeling, X 6 day(s), # 21 tab(s), Refills(s) 0, Pharmacy: [facility]/pharmacy #[id number], 141, cm, 01/11/23 10:30:00 EDT, Height/Length Dosing, 107.2, kg, 01/11/23 10:30:00 EDT, Weight Dosing [facility] External Ambulatory Referral 2. Myalgia (M79.10: Myalgia, unspecified site) medrol dose pack ordered Ordered: methylPREDNISolone, = 1 packet(s), Oral, As Directed, as directed on package labeling, X 6 day(s), # 21 tab(s), Refills(s) 0, Pharmacy: [facility]/pharmacy #[id number], 141, cm, 01/11/23 10:30:00 EDT, Height/Length Dosing, 107.2, kg, 01/11/23 10:30:00 EDT, Weight Dosing [facility] External Ambulatory Referral BMI 50.0-59.9, adult (Z68.43: [...] Oral, D (more content not included)... Normal [facility] Comment on above: Result Comment: Elec tronically Signed By: Barbara Dai\.br\Date and Time Signed: 01/11/23 11:12 EDT Lab Reportson 12-22-2022 Lab Reports [id number] #1.00CD:127 Normal [facility] LIPID PROFILEon 12-16-2022 CHOL-HDL RATIO NORM SEE BELOW Normal [facility] Comment on above: Result Comment: 3.3 - 4.4 LOW RISK 4.4 - 7.1 AVERAGE RISK 7.1 - 11.0 MODERATE RISK >11.0 HIGH RISK Performed By: #### L IPID ####[facility] [address] [place] [id number]. Erasmo Smith Cholesterol [Mass/Vol] 105 mg/dL Normal <=200 [facility] [place] Comment on above: Performed By: #### L IPID ####[facility] [address] [place] [id number]. Heavenean Luis Cholesterol in HDL [Mass/Vol] 48 mg/dL Normal 40-60 [facility] Comment on above: Performed By: #### L IPID ####[facility] [address] [place] [id number]. Erasmo Luis Cholesterol in LDL [Mass/Vol] 48.2 mg/dL Normal [facility] Comment on above: Performed By: #### L IPID ####[facility] [address] [place] [id number]. Erasmo Luis Cholesterol.total/Chol esterol in HDL [Mass ratio] 2.2 {ratio} Normal [facility] Comment on above: Performed By: #### L IPID ####[facility] [address] [place] [id number]. Erasmo Smith HDL NORMAL > or = 60 mg/dl - LOW CARDIOVASCULAR RISK <40 mg/dl - HIGH CARDIOVASCULAR RISK Normal [facility] Comment on above: Performed By: #### L IPID ####[facility] [address] [place] [id number]. Heavenean Smith LDL CALC NORMAL SEE BELOW Normal [facility] Comment on above: Result Comment: <100 mg/dl OPTIMAL 100 - 129 mg/dl NEAR OR ABOVE OPTIMAL 130 - 159 mg/dl BORDERLINE HIGH 160 - 189 mg/dl HIGH >190 mg/dl VERY HIGH Performed By: #### L IPID ####[facility] [address] [place] [id number]. Erasmo Smith Triglyceride [Mass/Vol] 44 mg/dL Normal <=150 [facility] Comment on above: Performed By: #### L IPID ####[facility] [address] [place], [place] [address]An. Erasmo Smith VLDL CALC 8.8 mg/dL Normal [facility] Comment on above: Performed By: #### L IPID ####[facility] [address] [place], [place] [address]Mz. Erasmo Smith Echocardiographyon Echocardiography [id number] #1.00CD:127 Normal [facility] Correspo ndenceon 12-13-2022 [facility] Correspondence [id number] #1.00CD:127 Normal [facility] Correspondence [id number]# 1.00CD:127 Normal [facility] CULTURE BLOODon 12-04-2022 Microscopic examination of [...] F Trimethoprim/Sulfame thoxazole <=20 S F Normal [facility] Comment on above: Performed By: #### B LDCX1 ####[facility] [address] [place] [id number]. Erasmo Smith BNPon 12-03-2022 Natriuretic peptide B (Bld) [Mass/Vol] 413.0 pg/mL Normal <=1,800.0 [facility] Comment on above: Performed By: #### B GROCERY STORE MANAGER #### [facility] Laboratory [address] [place] [address] [address] Erasmo Smith CBC AUTO DIFFon 12-03-2022 BASO # 0.0 103/ul Normal 0.0-0.1 [facility] Comment on above: Performed By: #### C BC ####[facility] [address] [place] [address]Dr. Erasmo Smith Basophils/100 WBC (Bld) 0.2 % Normal 0.2-2.0 [facility] Comment on above: Performed By: #### C BC ####[facility] [address] [place] [address]DrMeena Smith EO # 0.4 103/ul Normal 0.0-0.7 [facility] Comment on above: Performed By: #### C BC ####[facility] [address] [place], [place] [address]DrMeena Smith Eosinophils/100 WBC (Bld) 2.1 % Normal 0.9-7.0 [facility] Comment on above: Performed By: #### C BC ####[facility] [address] [place] [address]DrMeena Smith Erythrocyte distribution width (RBC) [Ratio] 17.2 % Critically high 11.0-15.0 [facility] Comment on above: Performed By: #### C BC ####[facility] [address] [place] [address]DrMeena Smith Hematocrit (Bld) [Volume fraction] 29.2 % Critically low 36.0-48.0 [facility] Comment on above: Performed By: #### C BC ####[facility] [address] [place], [place] [address]DrMeena Smith Hemoglobin (Bld) [Mass/Vol] 9.5 g/dL Critically low 12.0-16.0 [facility] Comment on above: Performed By: #### C BC ####[facility] [address] [place] [id number]. Erasmo Smith IG # 0.13 10e3/ul Critically high 0.00-0.03 [facility] Comment on above: Performed By: #### C BC ####[facility] [address] [place] [id number]. Erasmo Smith IG % 0.8 % Critically high 0.0-0.5 [facility] Comment on above: Performed By: #### C BC ####[facility] [address] [place] [address]Dr. Erasmo Smith LYMPH # 1.8 103/ul Normal 1.2-3.8 [facility] Comment on above: Performed By: #### C BC ####[facility] [address] [place] [address]Dr. Erasmo Smith Lymphocytes/100 WBC (Bld) 10.3 % Critically low 20.5-60.0 [facility] Comment on above: Performed By: #### C BC ####[facility] [address] [place] [address]Dr. Erasmo Smith MANUAL DIFF REQ NO Normal [facility] Comment on above: Performed By: #### C BC ####[facility] [address] [place] [address]Dr. Erasmo Smith MCH (RBC) [Entitic mass] 25.7 pg Critically low 26.7-34.0 [facility] Comment on above: Performed By: #### C BC ####[facility] [address] [place] [address]Dr. Erasmo Smith MCHC (RBC) [Mass/Vol] 32.5 g/dL Normal 29.9-35.2 [facility] Comment on above: Performed By: #### C BC ####[facility] [address] [place] [id number]. Erasmo Smith MCV (RBC) [Entitic vol] 79.1 fL Critically low 81.0-99.0 [facility] Comment on above: Performed By: #### C BC ####[facility] [address] [place] [id number]. Erasmo Smith MONO # 1.5 103/ul Critically high 0.3-0.8 [facility] Comment on above: Performed By: #### C BC ####[facility] [address] [place] [id number]. Erasmo Smith Monocytes/100 WBC (Bld) 8.7 % Normal 1.7-12.0 [facility] Comment on above: Performed By: #### C BC ####[facility] [address] [place] [id number]. Erasmo Smith NEUT # 13.4 103/ul Critically high 1.4-6.5 [facility] [place] [facility] Comment on above: Performed By: #### C BC ####[facility] [address] [place] [id number]. Erasmo Smith Neutrophils/100 WBC (Bld) 77.9 % Critically high 43.0-75.0 [facility] Comment on above: Performed By: #### C BC ####[facility] [address] [place] [id number]. Erasmo Smith Platelet mean volume (Bld) [Entitic vol] 9.3 fL Critically low 9.5-13.5 [facility] Comment on above: Performed By: #### C BC ####[facility] [address] [place] [id number]. Erasmo Smith PLT 205 103/ul Normal 150-450 [facility] Comment on above: Performed By: #### C BC ####[facility] [address] [place] [id number]. Erasmo Smith RBC 3.69 106/ul Critically low 4.20-5.40 [facility] Comment on above: Performed By: #### C BC ####[facility] [address] [place] [id number]. Erasmo Smith WBC 17.2 103/ul Critically high 4.0-11.0 [facility] [place] [facility] Comment on above: Performed By: #### C BC ####[facility] [address] [place] [address]Dr. Erasmo Smith MAGNESIUMon 12-03-2022 Magnesium [Mass/Vol] 1.9 mg/dL Normal 1.8-2.4 [facility] Comment on above: Performed By: #### B GROCERY STORE MANAGER #### [facility] [address] [place] [address] [address] Erasmo Smith PROF 14(COMP METB)on 023 Albumin [Mass/Vol] 2.6 g/dL Critically low 3.4-5.0 [facility] Comment on above: Performed By: #### B GROCERY STORE MANAGER #### [facility] [address] [place] [address] Dr. Erasmo Smith Albumin/Globulin [Mass ratio] 0.6 {ratio} Normal [facility] Comment on above: Performed By: #### B GROCERY STORE MANAGER #### [facility] [address] [place] [address] Dr. Erasmo Smith ALP [Catalytic activity/Vol] 123 U/L Critically high 46-116 [facility] Comment on above: Performed By: #### B GROCERY STORE MANAGER #### [facility] [address] [place] [address] Dr. Erasmo Smith ALT [Catalytic activity/Vol] 28 U/L Normal 14-59 [facility] Comment on above: Performed By: #### B GROCERY STORE MANAGER #### [facility] [address] [place] [address] Dr. Erasmo Smith Anion gap [Moles/Vol] 9.4 mmol/L Normal [facility] Comment on above: Performed By: #### B GROCERY STORE MANAGER #### [facility] [address] [place] [address] Dr. Erasmo Smith AST [Catalytic activity/Vol] 21 U/L Normal 15-37 [facility] Comment on above: Performed By: #### B GROCERY STORE MANAGER #### [facility] [address] [place] [address] Dr. Erasmo Smith Bilirubin [Mass/Vol] 0.3 mg/dL Normal 0.2-1.0 [facility] Comment on above: Performed By: #### B GROCERY STORE MANAGER #### [facility] [address] [place] [address] Dr. Erasmo Smith Calcium [Mass/Vol] 8.3 mg/dL Critically low 8.5-10.1 [facility] Comment on above: Performed By: #### B GROCERY STORE MANAGER #### [facility] [address] [place] [address] Dr. Erasmo Smith Chloride [Moles/Vol] 105 mmol/L Normal 98-107 [facility] Comment on above: Performed By: #### B GROCERY STORE MANAGER #### [facility] [address] [place] [address] Dr. Erasmo Smith CO2 [Moles/Vol] 27.1 mmol/L Normal 21.0-32.0 [facility] Comment on above: Performed By: #### B GROCERY STORE MANAGER #### [facility] [address] [place] [address] Dr. Erasmo Smith Creatinine [Mass/Vol] 0.55 mg/dL Normal 0.55-1.02 [facility] Comment on above: Performed By: #### B GROCERY STORE MANAGER #### [facility] [address] [place] [address] Dr. Erasmo Smith EGFR-AF GREENLANDIC >60 Normal >=60 [facility] Comment on above: Performed By: #### B GROCERY STORE MANAGER #### [facility] [address] [place] [address] Dr. Erasmo Smith EGFR-NON AF GREENLANDIC >60 Normal >=60 [facility] Comment on above: Performed By: #### B GROCERY STORE MANAGER #### [facility] [address] [place] [address] Dr. Erasmo Smith Globulin (S) [Mass/Vol] 4.0 g/dL Normal [facility] Comment on above: Performed By: #### B GROCERY STORE MANAGER #### [facility] [address] [place] [address] Dr. Erasmo Smith Glucose [Mass/Vol] 132 mg/dL Critically high 74-106 T [facility] Comment on above: Performed By: #### B GROCERY STORE MANAGER #### [facility] [address] [place] [address] Dr. Erasmo Smith Potassium [Moles/Vol] 3.5 mmol/L Normal 3.5-5.1 [facility] Comment on above: Performed By: #### B GROCERY STORE MANAGER #### [facility] [address] [place] [address] Dr. Erasmo Smith Protein [Mass/Vol] 6.6 g/dL Normal 6.4-8.2 [facility] Comment on above: Performed By: #### B GROCERY STORE MANAGER #### [facility] [address] [place] [address] Dr. Erasmo Smith Sodium [Moles/Vol] 138 mmol/L Normal 136-145 [facility] Comment on above: Performed By: #### B GROCERY STORE MANAGER #### [facility] [address] [place] [address] Dr. Erasmo Smith Urea nitrogen [Mass/Vol] 24.0 mg/dL Critically high 7.0-18.0 [facility] Comment on above: Performed By: #### B GROCERY STORE MANAGER #### [facility] [address] [place] [address] Dr. Erasmo Smith Urea nitrogen/Creatinine [Mass ratio] 43.6 mg/mg Normal [facility] Comment on above: Performed By: #### B GROCERY STORE MANAGER #### [facility] [address] [place] [address] Dr. Erasmo Smith PROTIMEon 12-03-2022 INR Coag (PPP) [Relative time] 4.41 {INR} Critically high [facility] Comment on above: Performed By: #### C MREP #### [facility] [address] [place] [address] Dr. Erasmo Smith INR GUIDELINES SEE BELOW Normal [facility] Comment on above: Result Comment: ABNER RED INR: 2.0 - 3.0 CONDITIONS NOT LISTED BELOW 2.5 - 3.5 FOR PROSTHETIC HEART VALVE REPLACEMENT 2.5 - 3.5 RECURRENT THROMBOSIS Performed By: #### C MREP #### [facility] [address] [place] [address] Dr. Erasmo Smith PT Coag (PPP) [Time] 43.0 s Critically high 9.0-11.6 [facility] Comment on above: Performed By: #### C MREP #### [facility] [address] [address] [address] Erasmo Smith BLOOD CULTURE ID PANELon A. baumannii Not detected Normal NOT DETECTED [facility] Comment on above: Performed By: #### B CID2 ####[facility] [address] [id number]. Erasmo Smith Bacteriodes fragilis Not detected Normal NOT DETECTED [facility] Comment on above: Performed By: #### B CID2 ####[facility] [address] [address]Dr. Erasmo Smith BCID CONTROLS PASSED Normal The [facility] Comment on above: Performed By: #### B CID2 ####[facility] [address] [address]Dr. Erasmo Smith BCIDBTHD BLOOD CULTURE BOTTLE INFORMATION Normal [facility] Comment on above: Performed By: #### B CID2 ####[facility] [address] [address]Dr. Erasmo Smith BCIDHD1 ANTIMICROBIAL RESISTANCE GENES Normal [facility] Comment on above: Performed By: #### B CID2 ####[facility] [address] [address]Dr. Erasmo Smith BCIDHD2 SEE BELOW Normal [facility] Comment on above: Result Comment: Note : Antimicrobial resitance can occur via multiple mechanisms. A Not Detected result for the [employer] antomicrobial resistance gene assays does not indicate antimicrobial susceptibility. Subculturing is required for species identification and susceptibility testing of isolates. Performed By: #### B CID2 ####[facility] [address] [address]Dr. Erasmo Smith BCIDHD3 Positive Normal [facility] Comment on above: Performed By: #### B CID2 ####[facility] [address] [address]Dr. Erasmo Smith BCIDHD4 Negative Normal [facility] Comment on above: Performed By: #### B CID2 ####[facility] [address] [address]Dr. Erasmo Smith BCIDHD5 YEAST Normal [facility] Comment on above: Performed By: #### B CID2 ####[facility] [address] [address]Dr. Yiean Smith Bottle Set: Set 1 Normal [facility] Comment on above: Performed By: #### B CID2 ####[facility] [address] [address]Dr. Erasmo Smith Bottle: Anaerobic Normal [facility] Comment on above: Performed By: #### B CID2 ####[facility] [address] [address]Dr. Yiean Smith C. neoformans/gattii Not detected Normal NOT DETECTED [facility] Comment on above: Performed By: #### B CID2 ####[facility] [address] [place], [place] [address]Dr. Yiean [facility] Naye albicans Not detected Normal NOT DETECTED [facility] Comment on above: Performed By: #### B CID2 ####[facility] Fvxqiqxgnb[address] [place], [place] [address]Dr. Yiean Smith Naye auris Not detected Normal NOT DETECTED [facility] Comment on above: Performed By: #### B CID2 ####[facility] [address] [place], [place] [address]Dr. Yiean Smith Naye glabrata Not detected Normal NOT DETECTED [facility] Comment on above: Performed By: #### B CID2 ####[facility] Dvkgkmcwxs[address] [place], [place] [address]Dr. Yiean Smith Naye Krusei Not detected Normal NOT DETECTED [facility] Comment on above: Performed By: #### B CID2 ####[facility] Dtrctzzoxg[address] [place], [place] [address]Dr. Yilan Smith Naye Parapsilosis Not detected Normal NOT DETECTED [facility] Comment on above: Performed By: #### B CID2 ####[facility] Qcewuoytog[address] [place], [place] [address]Dr. Yiean Smith Naye Tropicalis Not detected Normal NOT DETECTED [facility] Comment on above: Performed By: #### B CID2 ####[facility] Ugikrnurqq[address] [place], [place] [address]Dr. Erasmo Smith CTX-M Resistant Gene Not Applicable Normal NOT DETECTE D [facility] Comment on above: Performed By: #### B CID2 ####[facility] Igxvkwbybn[address] [place], [place] [address]Dr. Erasmo Smith E. Cloacae complex Not detected Normal NOT DETECTED [facility] Comment on above: Performed By: #### B CID2 ####[facility] Pcczuzbfbn[address] [place], [place] [address]Dr. Erasmo Smith E. faecalis Not detected Normal NOT DETECTED The [facility] Comment on above: Performed By: #### B CID2 ####[facility] Ffgbmabojp[address] [place], [place] [address]Dr. Erasmo Smith E. faecium Not detected Normal NOT DETECTED [facility] Comment on above: Performed By: #### B CID2 ####[facility] Foiryxfgvd[address] [place], [place] [address]Dr. Erasmo Smith Enterobacteriaceae Detected Critically abnormal NOT DETECTED [facility] Comment on above: Performed By: #### B CID2 ####[facility] Unzobtkxdv[address] [place], [place] [address]Dr. Erasmo Smith Escherichia coli Detected Critically abnormal NOT DETECTED [facility] Comment on above: Performed By: #### B CID2 ####[facility] Xhalghovud[address] [place], [place] [address]Dr. Erasmo Smith H. influenzae Not detected Normal NOT DETECTED [facility] Comment on above: Performed By: #### B CID2 ####[facility] Wmtlrgctxc[address] [place], [place] [address]Dr. Erasmo Smith IMP Resistant Gene Not Applicable Normal NOT DETECTED [facility] Comment on above: Performed By: #### B CID2 ####[facility] Aotnfdpmxy[address] [place], [place] [address]Dr. Erasmo Smith K. oxytoca Not detected Normal NOT DETECTED [facility] Comment on above: Performed By: #### B CID2 ####[facility] [address] [id number]. Erasmo Smith K. pneumoniae Not detected Normal NOT DETECTED [facility] Comment on above: Performed By: #### B CID2 ####[facility] Ptfzlfdbmj[address] [place], [place] [address]Dr. Erasmo Smith Klebsiella aerogenes Not detected Normal NOT DETECTED [facility] Comment on above: Performed By: #### B CID2 ####[facility] Ldwjfoubjj[address] [place], [place] [address]Dr. Erasmo Smith KPC Resistant Gene Not detected Normal NOT DETECTED [facility] Comment on above: Performed By: #### B CID2 ####[facility] Ocbrfirbkz[address] [place], [place] [address]Dr. Erasmo Smith List. monocytogenes Not detected Normal NOT DETECTED [facility] Comment on above: Performed By: #### B CID2 ####[facility] Ugwzrxiaxg[address] [place], [place] [address]Dr. Erasmo Smith Mcr-1 Resistant Gene Not Applicable Normal NOT DETECTE D [facility] Comment on above: Performed By: #### B CID2 ####[facility] Hxhwraqmgy[address] [place], [place] [address]Dr. Erasmo Smith mecA/C Not Applicable Normal NOT DETECTED [facility] Comment on above: Performed By: #### B CID2 ####[facility] Ijsvysokfc[address] [place], [place] [address]Dr. Erasmo Smith mecA/C MREJ Not Applicable Normal NOT DETECTED [facility] Comment on above: Performed By: #### B CID2 ####[facility] Ldslodioai[address] [place], [place] [address]Dr. Erasmo Smith N. meningitidis Not detected Normal NOT DETECTED [facility] Comment on above: Performed By: #### B CID2 ####[facility] Kucmkzthtm[address] [place], [place] [address]Dr. Erasmo Smith NDM Resistant Gene Not Applicable Normal NOT DETECTED [facility] Comment on above: Performed By: #### B CID2 ####[facility] Ykpmckilre2[address] [place], [place] [address]Dr. Erasmo Smith Oxa-48-like Not Applicable Normal NOT DETECTED [facility] Comment on above: Performed By: #### B CID2 ####[facility] [address] [address]Dr. Erasmo Smith Proteus Not detected Normal NOT DETECTED [facility] Comment on above: Performed By: #### B CID2 ####[facility] [address] [address]Dr. Erasmo Smith Pseud. aeruginosa Not detected Normal NOT DETECTED [facility] Comment on above: Performed By: #### B CID2 ####[facility] Nxbsdvplxx[address] [place], [place] [address]Dr. Erasmo Smith S. maltophilia Not detected Normal NOT DETECTED [facility] Comment on above: Performed By: #### B CID2 ####[facility] Uaemejavhe[address] [place], [place] [address]Dr. Erasmo Smith Salmonella Not detected Normal NOT DETECTED [facility] Comment on above: Performed By: #### B CID2 ####[facility] Fprbrayyrc[address] [place], [place] [address]Dr. Erasmo Smith Seratia marcescens Not detected Normal NOT DETECTED [facility] Comment on above: Performed By: #### B CID2 ####[facility] Swuhcexfog[address] [place], [place] [address]Dr. Erasmo Smith Site: l ac Normal [facility] Comment on above: Performed By: #### B CID2 ####[facility] [address] [address]Dr. Erasmo Smith Staph. aureus Not detected Normal NOT DETECTED [facility] Comment on above: Performed By: #### B CID2 ####[facility] [address]liuflta[address] [place], [place] [address]Dr. Erasmo Smith Staph. epidermidis Not detected Normal NOT DETECTED [facility] Comment on above: Performed By: #### B CID2 ####[facility] Ireqhlsjia[address] [place], [place] [address]Dr. Erasmo Smith Staph. lugdunensis Not detected Normal NOT DETECTED [facility] Comment on above: Performed By: #### B CID2 ####[facility] [address] [address]Dr. Erasmo Smith Staphylococcus Not detected Normal NOT DETECTED [facility] Comment on above: Performed By: #### B CID2 ####[facility] [address]fen[address] [address]Dr. Heavenean Luis Strep. agalactiae Not detected Normal NOT DETECTED [facility] Comment on above: Performed By: #### B CID2 ####[facility] [address] [address]Dr. Erasmo Smith Strep. pneumoniae Not detected Normal NOT DETECTED [facility] Comment on above: Performed By: #### B CID2 ####[facility] Jyeokbtmlc[address] [place], [place] [address]Dr. Erasmo Smith Strep. pyogenes Not detected Normal NOT DETECTED [facility] Comment on above: Performed By: #### B CID2 ####[facility] Weoggtvidx[address] [place], [place] [address]Dr. Erasmo Luis Streptococcus Not detected Normal NOT DETECTED [facility] Comment on above: Performed By: #### B CID2 ####[facility] Pbcbzlrbfq[address] [place], [place] [address]Dr. Erasmo Smith Fran/B Resist. Gene Not detected Normal NOT DETECTED [facility] Comment on above: Performed By: #### B CID2 ####[facility] Vwpounoqds[address] [place], [place] [address]Dr. Erasmo Smith VIM Resistant Gene Not Applicable Normal NOT DETECTED [facility] Comment on above: Performed By: #### B CID2 ####[facility] Ufzpuveomd[address] [place], [place] [address]Dr. Erasmo Smith BNPon 12-02-2022 Natriuretic peptide B (Bld) [Mass/Vol] 1059.0 pg/mL Normal <=1,800.0 [facility] Comment on above: Performed By: #### B GROCERY STORE MANAGER #### [facility] [address] [address] [address] Erasmo Smith CBC AUTO DIFFon 12-02-2022 BASO # 0.0 103/ul Normal 0.0-0.1 [facility] Comment on above: Performed By: #### C BC ####[facility] [address] [address]DrMeena Smith Basophils/100 WBC (Bld) 0.2 % Normal 0.2-2.0 [facility] Comment on above: Performed By: #### C BC ####[facility] [address]cs[address] [place], [place] [address]DrMeena Smith EO # 0.0 103/ul Normal 0.0-0.7 [facility] Comment on above: Performed By: #### C BC ####[facility] Ej[address]fqec[address] [place], [place] [address]DrMeena Smith Eosinophils/100 WBC (Bld) 0.0 % Critically low 0.9-7.0 [facility] Comment on above: Performed By: #### C BC ####[facility] [address]frc[address] [place], [place] [address]DrMeena Smith Erythrocyte distribution width (RBC) [Ratio] 17.3 % Critically high 11.0-15.0 [facility] Comment on above: Performed By: #### C BC ####[facility] [address] [place], [place] [address]DrMeena Smith Hematocrit (Bld) [Volume fraction] 31.4 % Critically low 36.0-48.0 [facility] Comment on above: Performed By: #### C BC ####[facility] Aeerlfpwsb[address] [place], [place] [address]Dr. Erasmo Smith Hemoglobin (Bld) [Mass/Vol] 10.0 g/dL Critically low 12.0-16.0 [facility] Comment on above: Performed By: #### C BC ####[facility] [address] [address]DrMeena Smith IG # 0.06 10e3/ul Critically high 0.00-0.03 [facility] Comment on above: Performed By: #### C BC ####[facility] [address] [id number]. Erasmo Smith IG % 0.4 % Normal 0.0-0.5 [facility] Comment on above: Performed By: #### C BC ####[facility] [address]ys[address] [id number]. Erasmo Smith LYMPH # 1.3 103/ul Normal 1.2-3.8 [facility] Comment on above: Performed By: #### C BC ####[facility] [address] [id number]. Erasmo Luis Lymphocytes/100 WBC (Bld) 8.1 % Critically low 20.5-60.0 [facility] Comment on above: Performed By: #### C BC ####[facility] [address] [id number]. Erasmo Smith MANUAL DIFF REQ NO Normal [facility] Comment on above: Performed By: #### C BC ####[facility] X[address] [id number]. Erasmo Smith MCH (RBC) [Entitic mass] 25.6 pg Critically low 26.7-34.0 [facility] Comment on above: Performed By: #### C BC ####[facility] [address] [id number]. Erasmo Smith MCHC (RBC) [Mass/Vol] 31.8 g/dL Normal 29.9-35.2 [facility] Comment on above: Performed By: #### C BC ####[facility] [address] [id number]. Erasmo Smith MCV (RBC) [Entitic vol] 80.3 fL Critically low 81.0-99.0 [facility] Comment on above: Performed By: #### C BC ####[facility] [address]sv[address] [id number]. Erasmo Luis MONO # 0.6 103/ul Normal 0.3-0.8 [facility] Comment on above: Performed By: #### C BC ####[facility] [address] [id number]. Erasmo Smith Monocytes/100 WBC (Bld) 3.7 % Normal 1.7-12.0 [facility] Comment on above: Performed By: #### C BC ####[facility] [address] [id number]. Erasmo Smith NEUT # 14.5 103/ul Critically high 1.4-6.5 [facility] Comment on above: Performed By: #### C BC ####[facility] [address] [id number]. Erasmo Smith Neutrophils/100 WBC (Bld) 87.6 % Critically high 43.0-75.0 [facility] Comment on above: Performed By: #### C BC ####[facility] [address] [id number]. Erasmo Smith Platelet mean volume (Bld) [Entitic vol] 10.0 fL Normal 9.5-13.5 [facility] Comment on above: Performed By: #### C BC ####[facility] [address]uz[address] [id number]. Erasmo Smith PLT 206 103/ul Normal 150-450 [facility] Comment on above: Performed By: #### C BC ####[facility] X[address]wm[address] [id number]. Erasmo Smith RBC 3.91 106/ul Critically low 4.20-5.40 [facility] Comment on above: Performed By: #### C BC ####[facility] [address] [id number]. Erasmo Smith WBC 16.5 103/ul Critically high 4.0-11.0 [facility] Comment on above: Performed By: #### C BC ####[facility] [address] [id number]. Erasmo Smith ECHOCARDIO M/2D COMPLETEon 0 12-02-2022 ECHOCARDIO M/2D COMPLETE Patient: BREANN STARKS Exam Date: 12/02/2022 : 1945 Gender:F Ordering : KAYLEY HOLMAN . Admission #: [id number] Family : DR LUISANA FISHER . Order #: [id number] CLICK HERE TO VIEW EXAM ECHOCARDIOGRAM REPORT [...] Salazar M.D. on 12/02/2022 at 21:58 Normal [facility] MAGNESIUMon 12-02-2022 Magnesium [Mass/Vol] 2.0 mg/dL Normal 1.8-2.4 [facility] Comment on above: Performed By: #### B GROCERY STORE MANAGER #### [facility] [address] [place] [address] Dr. Erasmo Smith PROF 14(COMP METB)on 023 Albumin [Mass/Vol] 2.7 g/dL Critically low 3.4-5.0 [facility] Comment on above: Performed By: #### B GROCERY STORE MANAGER #### [facility] [address] [place] [address] Dr. Erasmo Smith Albumin/Globulin [Mass ratio] 0.6 {ratio} Normal [facility] Comment on above: Performed By: #### B GROCERY STORE MANAGER #### [facility] [address] [place] [address] Dr. Erasmo Smith ALP [Catalytic activity/Vol] 128 U/L Critically high 46-116 [facility] Comment on above: Performed By: #### B GROCERY STORE MANAGER #### [facility] [address] [address] [address] Erasmo Smith ALT [Catalytic activity/Vol] 34 U/L Normal 14-59 [facility] Comment on above: Performed By: #### B GROCERY STORE MANAGER #### [facility] [address] [address] [address] Erasmo Smith Anion gap [Moles/Vol] 10.6 mmol/L Normal [facility] Comment on above: Performed By: #### B GROCERY STORE MANAGER #### [facility] [address] [address] [address] Erasmo Smith AST [Catalytic activity/Vol] 27 U/L Normal 15-37 [facility] Comment on above: Performed By: #### B GROCERY STORE MANAGER #### [facility] [address] [place] [address] Dr. Erasmo Smith Bilirubin [Mass/Vol] 0.5 mg/dL Normal 0.2-1.0 [facility] Comment on above: Performed By: #### B GROCERY STORE MANAGER #### [facility] [address] [place] [address] Dr. Erasmo Smith Calcium [Mass/Vol] 8.4 mg/dL Critically low 8.5-10.1 [facility] [place] Comment on above: Performed By: #### B GROCERY STORE MANAGER #### [facility] [address] [place] [address] Dr. Erasmo Smith Chloride [Moles/Vol] 104 mmol/L Normal 98-107 [facility] Comment on above: Performed By: #### B GROCERY STORE MANAGER #### [facility] [address] [place] [address] Dr. Erasmo Smith CO2 [Moles/Vol] 26.2 mmol/L Normal 21.0-32.0 [facility] Comment on above: Performed By: #### B GROCERY STORE MANAGER #### [facility] [address] [place] [address] Dr. Erasmo Smith Creatinine [Mass/Vol] 0.52 mg/dL Critically low 0.55-1.02 [facility] Comment on above: Performed By: #### B GROCERY STORE MANAGER #### [facility] [address] [place] [address] Dr. Erasmo Smith EGFR-AF GREENLANDIC >60 Normal >=60 [facility] Comment on above: Performed By: #### B GROCERY STORE MANAGER #### [facility] [address] [place] [address] Dr. Erasmo Smith EGFR-NON AF GREENLANDIC >60 Normal >=60 [facility] Comment on above: Performed By: #### B GROCERY STORE MANAGER #### [facility] [address] [place] [address] Dr. Erasmo Smith Globulin (S) [Mass/Vol] 4.3 g/dL Normal [facility] Comment on above: Performed By: #### B GROCERY STORE MANAGER #### [facility] [address] [place] [address] Dr. Erasmo Smith Glucose [Mass/Vol] 135 mg/dL Critically high 74-106 T [facility] Comment on above: Performed By: #### B GROCERY STORE MANAGER #### [facility] [address] [place] [address] Dr. Erasmo Smith Potassium [Moles/Vol] 3.8 mmol/L Normal 3.5-5.1 [facility] Comment on above: Performed By: #### B GROCERY STORE MANAGER #### [facility] [address] [place] [address] Dr. Erasmo Smith Protein [Mass/Vol] 7.0 g/dL Normal 6.4-8.2 [facility] Comment on above: Performed By: #### B GROCERY STORE MANAGER #### [facility] [address] [place] [address] Dr. Erasmo Smith Sodium [Moles/Vol] 137 mmol/L Normal 136-145 [facility] Comment on above: Performed By: #### B GROCERY STORE MANAGER #### [facility] [address] [place] [address] Dr. Erasmo Smith Urea nitrogen [Mass/Vol] 16.0 mg/dL Normal 7.0-18.0 [facility] Comment on above: Performed By: #### B GROCERY STORE MANAGER #### [facility] [address] [place] [address] Dr. Erasmo Smith Urea nitrogen/Creatinine [Mass ratio] 30.8 mg/mg Normal [facility] Comment on above: Performed By: #### B GROCERY STORE MANAGER #### [facility] [address] [address] [address] Erasmo Smith PROTIMEon 12-02-2022 INR Coag (PPP) [Relative time] 4.39 {INR} Critically high [facility] Comment on above: Performed By: #### P T #### [facility] [address] [address] [address] Erasmo Smith INR GUIDELINES SEE BELOW Normal [facility] [place] [facility] Comment on above: Result Comment: ABNER RED INR: 2.0 - 3.0 CONDITIONS NOT LISTED BELOW 2.5 - 3.5 FOR PROSTHETIC HEART VALVE REPLACEMENT 2.5 - 3.5 RECURRENT THROMBOSIS Performed By: #### P T #### [facility] [address] [address] [address] Erasmo Smith PT Coag (PPP) [Time] 42.8 s Critically high 9.0-11.6 [facility] Comment on above: Performed By: #### P T #### [facility] [address] [address] [address] Erasmo Smith UA RANDOM W/MICROSCOPICon BACTERIA NONE SEEN Normal NONE SEEN [facility] Comment on above: Performed By: #### U AMIC ####[facility] [address] [address]DrMeena Smith Bilirubin Ql (U) Negative Normal NEGATIVE [facility] [place] [facility] Comment on above: Performed By: #### U AMIC ####[facility] [address] [address]DrMeena Smith CAST NONE SEEN Normal NONE SEEN [facility] Comment on above: Performed By: #### U AMIC ####[facility] [address] [place], [place] [address]DrMeena Smith Clarity (U) CLEAR Normal CLEAR [facility] Comment on above: Performed By: #### U AMIC ####[facility] [address] [address]DrMeena Smith Color (U) YELLOW Normal YELLOW [facility] Comment on above: Performed By: #### U AMIC ####[facility] [address] [address]Dr. Erasmo Smith Crystals LM Nom (Urine sed) NONE SEEN Normal NONE SEEN [facility] Comment on above: Performed By: #### U AMIC ####[facility] [address] [place] [id number]. Erasmo Smith Epithelial cells LM Ql (Urine sed) RARE Normal NONE SEEN /RARE [facility] Comment on above: Performed By: #### U AMIC ####[facility] [address] [place] [address]Dr. Erasmo Smith Glucose Ql (U) Negative Normal NEGATIVE [facility] Comment on above: Performed By: #### U AMIC ####[facility] [address] [place] [address]Dr. Erasmo Smith Hemoglobin Ql (U) SMALL Abnormal NEGATIVE [facility] Comment on above: Performed By: #### U AMIC ####[facility] [address] [place], [place] [address]Dr. Erasmo Smith Ketones Ql (U) 15 mg/dl Abnormal NEGATIVE [facility] [place] [facility] Comment on above: Performed By: #### U AMIC ####[facility] [address] [address]Dr. Erasmo Smith LEUKOCYTES Negative Normal NEGATIVE [facility] Comment on above: Performed By: #### U AMIC ####[facility] [address] [address]Dr. Erasmo Smith MUCOUS NONE SEEN Normal NONE SEEN [facility] Comment on above: Performed By: #### U AMIC ####[facility] [address] [address]Dr. Erasmo Smith Nitrite Ql (U) Negative Normal NEGATIVE [facility] Comment on above: Performed By: #### U AMIC ####[facility] [address] [address]Dr. Erasmo Smith pH (U) 6.0 [pH] Normal 5-9 [facility] Comment on above: Performed By: #### U AMIC ####[facility] [address] [id number]. Erasmo Smith RBC 0-2 Normal 0-2 [facility] Comment on above: Performed By: #### U AMIC ####[facility] [address] [id number]. Erasmo Smith SPEC GRAVITY 1.025 Normal 1.005-<=1.02 5 [facility] Comment on above: Performed By: #### U AMIC ####[facility] [address] [id number]. Erasmo Smith UA PROTEIN TRACE Normal NEGATIVE/ TRACE [facility] Comment on above: Performed By: #### U AMIC ####[facility] [address] [address]Dr. Erasmo Smith Urobilinogen Qn (U) 4 {Shraddha'U}/dL Abnormal 0.2 - 1.0 [facility] Comment on above: Performed By: #### U AMIC ####[facility] [address] [id number]. Erasmo Smith WBC 0-2 Abnormal NONE SEEN [facility] Comment on above: Performed By: #### U AMIC ####[facility] [address] [place] [id number]. Erasmo Smith CARDIAC ROSA ELENA 3-6on 3 CK [Catalytic activity/Vol] 53 U/L Normal 26-192 [facility] Comment on above: Performed By: #### C MREP #### [facility] [address] [address] [address] Erasmo Smith CK.MB [Mass/Vol] 0.90 ng/mL Normal <=3.60 [facility] Comment on above: Performed By: #### C MREP #### [facility] [address] [address] [address] Erasmo Smith HSTROP 116.7 pg/mL Critically high 4.0-51.3 [facility] Comment on above: Result Comment: CUT- OFF POINTS HAVE BEEN ESTABLISHED BASED ON THE FOURTH UNIVERSAL DEFINITIONS OF MYOCARDIAL INFARCTION. THE UPPER REFERENCE LIMIT (URL) OF TROPONIN, DEFINED THE 99TH PERCENTILE OF cTnI DISTRIBUTION IN A REFERENCE POPULATION, HAS BEEN CONFIRMED THE DECISION THRESHOLD FOR MA DIAGNOSIS. Performed By: #### C MREP #### [facility] [address] [place] [address] Dr. Erasmo Smith CK [Catalytic activity/Vol] 47 U/L Normal 26-192 [facility] Comment on above: Performed By: #### B GROCERY STORE MANAGER #### [facility] [address] [place] [address] Dr. Erasmo Smith CK.MB [Mass/Vol] 1.00 ng/mL Normal <=3.60 [facility] Comment on above: Performed By: #### B GROCERY STORE MANAGER #### [facility] [address] [place] [address] Dr. Erasmo Smith HSTROP 154.3 pg/mL Critically high 4.0-51.3 [facility] [place] [facility] Comment on above: Result Comment: CUT- OFF POINTS HAVE BEEN ESTABLISHED BASED ON THE FOURTH UNIVERSAL DEFINITIONS OF MYOCARDIAL INFARCTION. THE UPPER REFERENCE LIMIT (URL) OF TROPONIN, DEFINED THE 99TH PERCENTILE OF cTnI DISTRIBUTION IN A REFERENCE POPULATION, HAS BEEN CONFIRMED THE DECISION THRESHOLD FOR MA DIAGNOSIS. Performed By: #### B GROCERY STORE MANAGER #### [facility] [address] [place] [address] Dr. Erasmo Smith CBC W MANUAL DIFFon 12-02-19 23 ATYPICAL LYMPH # Normal [facility] Comment on above: Performed By: #### C ANGELA #### [facility] [address] [place] [address] Dr. Erasmo Smith ATYPICAL LYMPH % Normal [facility] Comment on above: Performed By: #### C ANGELA #### [facility] [address] [place] [address] Dr. Erasmo Smith BAND # 0.6 103/ul Critically high 0.0-0.3 [facility] Comment on above: Performed By: #### C ANGELA #### [facility] [address] [place] [address] Dr. Erasmo Smith BAND % 3 % Normal 0-5 [facility] Comment on above: Performed By: #### C BCBLAISE #### [facility] [address] [address] [address] Erasmo Smith BASOM # 0.00 103/ul Normal 0.00-0.10 [facility] Comment on above: Performed By: #### C BCBLAISE #### [facility] [address] [place] [address] Dr. Erasmo Smith BASOM % 0.0 % Critically low 0.2-2.0 [place] Comment on above: Performed By: #### C BCBLAISE #### [facility] [address] [place] [address] Dr. Erasmo Smith BLAST # Normal [facility] Comment on above: Performed By: #### C ANGELA #### [facility] [address] [place] [address] Dr. Erasmo Smith BLAST % Normal [facility] Comment on above: Performed By: #### C ANGELA #### [facility] [address] [place] [address] Dr. Erasmo Smith CORRECTED WBC Normal 4.0-11.0 [facility] Comment on above: Performed By: #### C ANGELA #### [facility] [address] [place] [address] Dr. Erasmo Smith EOS # 0.19 103/ul Normal 0.00-0.70 [facility] Comment on above: Performed By: #### C ANGELA #### [facility] [address] [place] [address] Dr. Erasmo Smith EOS% 1.0 % Normal 0.9-7.0 [facility] Comment on above: Performed By: #### C BCBLAISE #### [facility] [address] [place] [address] Dr. Erasmo Smith HCT 32.7 % Critically low 36.0-48.0 [place] Comment on above: Performed By: #### C ANGELA #### [facility] [address] [place] [address] Dr. Erasmo Smith HGB 10.5 g/dl Critically low 12.0-16.0 [place] Comment on above: Performed By: #### C BCBLAISE #### [facility] [address] [address] [address] Erasmo Smith LYMPHM # 0.76 103/ul Critically low 1.20-3.80 [facility] Comment on above: Performed By: #### C BCBLAISE #### [facility] [address] [address] [address] Erasmo Smith LYMPHM% 4.0 % Critically low 20.5-60.0 [place] Comment on above: Performed By: #### C BCBLAISE #### [facility] [address] [address] [address] Erasmo Smith MCH 25.9 pg Critically low 26.7-34.0 [place] Comment on above: Performed By: #### C ANGELA #### [facility] [address] [address] [address] Erasmo Smith MCHC 32.1 g/dl Normal 29.9-35.2 [facility] Comment on above: Performed By: #### C ANGELA #### [facility] [address] [address] [address] Erasmo Smith MCV 80.5 fL Critically low 81.0-99.0 [place] Comment on above: Performed By: #### C ANGELA #### [facility] [address] [address] [address] Erasmo Smith METAMYELOCYTE # Normal [facility] Comment on above: Performed By: #### C BCBLAISE #### [facility] [address] [address] [address] Erasmo Smith METAMYELOCYTE % Normal [facility] Comment on above: Performed By: #### C BCBLAISE #### [facility] [address] [address] [address] Erasmo Smith MONOM# 1.14 103/ul Critically high 0.30-0.80 [facility] Comment on above: Performed By: #### C BCBLAISE #### [facility] [address] [address] [address] Erasmo Smith MONOM% 6.0 % Normal 1.7-12.0 [facility] Comment on above: Performed By: #### C ANGELA #### [facility] [address] [address] [address] Erasmo Smith MPV 9.4 fL Critically low 9.5-13.5 [place] Comment on above: Performed By: #### C ANGELA #### [facility] [address] [address] [address] Erasmo Smith MYELOCYTE # Normal [facility] Comment on above: Performed By: #### C ANGELA #### [facility] [address] [place] [address] Dr. Erasmo Smith MYELOCYTE % Normal [facility] Comment on above: Performed By: #### C ANGELA #### [facility] [address] [place] [address] Dr. Erasmo Smith NRBC Normal [facility] Comment on above: Performed By: #### C ANGELA #### [facility] [address] [place] [address] Dr. Erasmo Smith PLT 195 103/ul Normal 150-450 [facility] Comment on above: Performed By: #### C ANGELA #### [facility] [address] [place] [address] Dr. Erasmo Smith RBC 4.06 106/ul Critically low 4.20-5.40 [facility] Comment on above: Performed By: #### C ANGELA #### [facility] [address] [place] [address] Dr. Erasmo Smith RDW 17.7 % Critically high 11.0-15.0 [facility] Comment on above: Performed By: #### C ANGELA #### [facility] [address] [place] [address] Dr. Erasmo Smith SEG # 16.34 103/ul Critically high 1.40-6.50 [facility] Comment on above: Performed By: #### C ANGELA #### [facility] [address] [place] [address] Dr. Erasmo Smith SEG % 86.0 % Critically high 43.0-75.0 [facility] Comment on above: Performed By: #### Yamile MILLER #### [facility] [address] [place], [place] [address] Dr. Erasmo Smith WBC 19.0 103/ul Critically high 4.0-11.0 [facility] Comment on above: Performed By: #### Yamile MILLER #### [facility] [address] [place], [place] [address] HEAD WO CONon [...] SALOME MCCORMICK Date: 2022 14:50 Normal [facility] CULTURE BLOODon 2022 Microscopic examination of blood, culture Culture Observations: Aerobic and Anaerobic bottle positive. BCID: E. Coli Culture Observations: Refer to for VIOLET. Isolate 1 Escherichia coli Growth of Normal [facility] Comment on above: Performed By: #### B LDCX2 ####[facility] [address] [place], [place] [address]DwDr. Erasmo Smith [facility]on [facility]-11 SARS-CoV-2 (COVID-19) RNA EMILY+probe Ql (Unsp spec) Not detected Normal NOT DETECTED [facility] Comment on above: Result Comment: [...] for this test is supported by the [place] of Health and Human Service's declaration that [...] used). Performed By: #### C MREP #### [facility] [address] [address] [address] Erasmo Smith LACTATE/LACTIC ACIDon 2022 Lactate [Moles/Vol] 1.2 mmol/L Normal 0.4-2.0 [facility] Comment on above: Performed By: #### L ACT ####[facility] [address] [address]Dr. Erasmo Smith PH VENOUS BLOODon 2022 PCO2 VENOUS 37.8 mmHg Critically low 40.0-52.0 [facility] Comment on above: Performed By: #### P HVEN ####[facility] [address] [id number]. Erasmo Smith pH VENOUS 7.417 Normal 7.330-7.430 [facility] Comment on above: Performed By: #### P HVEN ####[facility] [address] [id number]. Erasmo Smith PROF 14(COMP METB)on 023 Albumin [Mass/Vol] 3.1 g/dL Critically low 3.4-5.0 [facility] [place] Comment on above: Performed By: #### H STROPN, CMP ####[facility] [address] [place] [address]Dr. Erasmo Smith Albumin/Globulin [Mass ratio] 0.8 {ratio} Normal [facility] Comment on above: Performed By: #### H STROPN, CMP ####[facility] [address] [place] [address]Dr. Erasmo Smith ALP [Catalytic activity/Vol] 194 U/L Critically high 46-116 [facility] Comment on above: Performed By: #### H STROPN, CMP ####[facility] [address] [place] [address]Dr. Erasmo Smith ALT [Catalytic activity/Vol] 37 U/L Normal 14-59 [facility] Comment on above: Performed By: #### H STROPN, CMP ####[facility] [address] [place] [address]Dr. Erasmo Luis Anion gap [Moles/Vol] 14.6 mmol/L Normal Th e [facility] Comment on above: Performed By: #### H STROPN, CMP ####[facility] [address] [place], [place] [address]Dr. Erasmo Luis AST [Catalytic activity/Vol] 32 U/L Normal 15-37 [facility] Comment on above: Performed By: #### H STROPN, CMP ####[facility] [address] [place], [place] [address]Dr. Erasmo Smith Bilirubin [Mass/Vol] 1.0 mg/dL Normal 0.2-1.0 [facility] Comment on above: Performed By: #### H STROPN, CMP ####[facility] [address] [place], [place] [address]Dr. Erasmo Luis Calcium [Mass/Vol] 8.9 mg/dL Normal 8.5-10.1 [facility] Comment on above: Performed By: #### H STROPN, CMP ####[facility] [address] [place] [address]Dr. Erasmo Luis Chloride [Moles/Vol] 103 mmol/L Normal 98-107 [facility] Comment on above: Performed By: #### H STROPN, CMP ####[facility] [address] [place] [address]Dr. Erasmo Smith CO2 [Moles/Vol] 23.6 mmol/L Normal 21.0-32.0 [facility] Comment on above: Performed By: #### H STROPN, CMP ####[facility] [address] [place] [address]Dr. Erasmo Smith Creatinine [Mass/Vol] 0.69 mg/dL Normal 0.55-1.02 [facility] Comment on above: Performed By: #### H STROPN, CMP ####[facility] [address] [place] [id number]. Erasmo Smith EGFR-AF GREENLANDIC >60 Normal >=60 [facility] Comment on above: Performed By: #### H STROPN, CMP ####[facility] [address] [place] [address]Dr. Erasmo Smith EGFR-NON AF GREENLANDIC >60 Normal >=60 [facility] Comment on above: Performed By: #### H STROPN, CMP ####[facility] [address] [place] [address]Dr. Erasmo Smith Globulin (S) [Mass/Vol] 4.1 g/dL Normal [facility] Comment on above: Performed By: #### H STROPN, CMP ####[facility] [address] [place] [address]Dr. Erasmo Smith Glucose [Mass/Vol] 121 mg/dL Critically high 74-106 T [facility] Comment on above: Performed By: #### H STROPN, CMP ####[facility] [address] [place] [address]Dr. Erasmo Smith Potassium [Moles/Vol] 3.2 mmol/L Critically low 3.5-5.1 [facility] Comment on above: Performed By: #### H STROPN, CMP ####[facility] [address] [place] [address]Dr. Erasmo Smith Protein [Mass/Vol] 7.2 g/dL Normal 6.4-8.2 [facility] Comment on above: Performed By: #### H STROPN, CMP ####[facility] [address] [place] [address]Dr. Erasmo Smtih Sodium [Moles/Vol] 138 mmol/L Normal 136-145 [facility] Comment on above: Performed By: #### H ALEXSANDER, CMP ####[facility] [address] [place] [address]Dr. Erasmo Smith Urea nitrogen [Mass/Vol] 17.0 mg/dL Normal 7.0-18.0 [facility] Comment on above: Performed By: #### H ALEXSANDER, CMP ####[facility] [address] [place] [id number]. Erasmo Smith Urea nitrogen/Creatinine [Mass ratio] 24.6 mg/mg Normal [facility] Comment on above: Performed By: #### H ALEXSANDER, CMP ####[facility] [address] [place] [address]Dr. Erasmo Smith PROTIMEon 2022 INR Coag (PPP) [Relative time] 3.58 {INR} Normal [facility] Comment on above: Performed By: #### P T, PTT #### [facility] [address] [place] [address] Dr. Erasmo Smith INR GUIDELINES SEE BELOW Normal [facility] [place] [facility] Comment on above: Result Comment: ABNER RED INR: 2.0 - 3.0 CONDITIONS NOT LISTED BELOW 2.5 - 3.5 FOR PROSTHETIC HEART VALVE REPLACEMENT 2.5 - 3.5 RECURRENT THROMBOSIS Performed By: #### P T, PTT #### [facility] [address] [address] [address] Erasmo Smith PT Coag (PPP) [Time] 35.3 s Critically high 9.0-11.6 [facility] Comment on above: Performed By: #### P T, PTT #### [facility] [address] [address] [address] Erasmo Smith PTTon 2022 aPTT Coag (Bld) [Time] 40.3 s Critically high 22.3-36. 2 [facility] Comment on above: Performed By: #### P T, PTT #### [facility] [address] [place] [address] Dr. Erasmo Smith TROPONIN, HIGH SENSITIVITYon 2022 HSTROP 194.7 pg/mL Critically high 4.0-51.3 [facility] Comment on above: Result Comment: CUT- OFF POINTS HAVE BEEN ESTABLISHED BASED ON THE FOURTH UNIVERSAL DEFINITIONS OF MYOCARDIAL INFARCTION. THE UPPER REFERENCE LIMIT (URL) OF TROPONIN, DEFINED THE 99TH PERCENTILE OF cTnI DISTRIBUTION IN A REFERENCE POPULATION, HAS BEEN CONFIRMED THE DECISION THRESHOLD FOR MA DIAGNOSIS. Performed By: #### C MREP #### [facility] [address] [address] [address] Erasmo Smith HSTROP 218.0 pg/mL Critically high 4.0-51.3 [facility] Comment on above: Result Comment: CUT- OFF POINTS HAVE BEEN ESTABLISHED BASED ON THE FOURTH UNIVERSAL DEFINITIONS OF MYOCARDIAL INFARCTION. THE UPPER REFERENCE LIMIT (URL) OF TROPONIN, DEFINED THE 99TH PERCENTILE OF cTnI DISTRIBUTION IN A REFERENCE POPULATION, HAS BEEN CONFIRMED THE DECISION THRESHOLD FOR MA DIAGNOSIS. Performed By: #### B GROCERY STORE MANAGER #### [facility] [address] [address] [address] Erasmo Smith XR CHEST 1 Von [...] by: HONG ALSTON Date: 2022 14:18 Normal [facility] Lab Reportson 11-30-2022 Lab Reports [id number]:[id number] Normal [facility] MG MAMM SCREEN 3D TOÑITO CADon 11-26-2022 MG MAMM SCREEN 3D TOÑITO CAD Patient: BREANN STARKS Exam Date: 11/26/2022 : 1945 Gender:F Ordering : DR LUISANA FISHER . Admission #: [id number] Family : Order #: [id number] CLICK HERE TO VIEW EXAM RADIOLOGY REPORT [...] No Treatments None Family Cancers None LOCATION: [facility] BREAST COMPOSITION: Heterogeneously dense,which may [...] Delgado M.D. on 11/26/2022 at 14:13 Normal [facility] PROF 14(COMP METB)on 022 Albumin [Mass/Vol] 3.8 g/dL Normal 3.4-5.0 [facility] Comment on above: Performed By: #### C MREP #### [facility] [address] [address] [address] Erasmo Smith Albumin/Globulin [Mass ratio] 0.8 {ratio} Normal [facility] Comment on above: Performed By: #### C MREP #### [facility] [address] [address] [address] Erasmo Smith ALP [Catalytic activity/Vol] 102 U/L Normal 46-116 [facility] Comment on above: Performed By: #### C MREP #### [facility] [address] [address] [address] Erasmo Smith ALT [Catalytic activity/Vol] 47 U/L Normal 14-59 [facility] Comment on above: Performed By: #### C MREP #### [facility] [address] [address] [address] Erasmo Smith Anion gap [Moles/Vol] 12.5 mmol/L Normal [facility] Comment on above: Performed By: #### C MREP #### [facility] [address] [address] [address] Erasmo Smith AST [Catalytic activity/Vol] 36 U/L Normal 15-37 [facility] Comment on above: Performed By: #### C MREP #### [facility] [address] [address] [address] Erasmo Smith Bilirubin [Mass/Vol] 0.3 mg/dL Normal 0.2-1.0 [facility] Comment on above: Performed By: #### C MREP #### [facility] [address] [place] [address] Dr. Erasmo Smith Calcium [Mass/Vol] 8.9 mg/dL Normal 8.5-10.1 [facility] Comment on above: Performed By: #### C MREP #### [facility] [address] [address] [address] Erasmo Smith Chloride [Moles/Vol] 106 mmol/L Normal 98-107 [facility] Comment on above: Performed By: #### C MREP #### [facility] [address] [place] [address] Dr. Erasmo Smith CO2 [Moles/Vol] 26.9 mmol/L Normal 21.0-32.0 [facility] Comment on above: Performed By: #### C MREP #### [facility] [address] [place] [address] Dr. Erasmo Smith Creatinine [Mass/Vol] 0.79 mg/dL Normal 0.55-1.02 [facility] Comment on above: Performed By: #### C MREP #### [facility] [address] [address] [address] Erasmo Smith EGFR-AF GREENLANDIC >60 Normal >=60 [facility] Comment on above: Performed By: #### C MREP #### [facility] [address] [address] [address] Erasmo Smith EGFR-NON AF GREENLANDIC >60 Normal >=60 [facility] Comment on above: Performed By: #### C MREP #### [facility] [address] [address] [address] Erasmo Smith Globulin (S) [Mass/Vol] 4.6 g/dL Normal [facility] Comment on above: Performed By: #### C MREP #### [facility] [address] [address] [address] Erasmo Smith Glucose [Mass/Vol] 102 mg/dL Normal 74-106 [facility] Comment on above: Performed By: #### C MREP #### [facility] [address] [place] [address] Dr. Erasmo Smith Potassium [Moles/Vol] 4.4 mmol/L Normal 3.5-5.1 [facility] Comment on above: Performed By: #### C MREP #### [facility] [address] [place] [address] Dr. Erasmo Smith Protein [Mass/Vol] 8.4 g/dL Critically high 6.4-8.2 T [facility] Comment on above: Performed By: #### C MREP #### [facility] [address] [place] [address] Dr. Erasmo Smith Sodium [Moles/Vol] 141 mmol/L Normal 136-145 [facility] Comment on above: Performed By: #### C MREP #### [facility] [address] [place] [address] Dr. Erasmo Smith Urea nitrogen [Mass/Vol] 28.0 mg/dL Critically high 7.0-18.0 [facility] Comment on above: Performed By: #### C MREP #### [facility] [address] [place] [address] Dr. Erasmo Smith Urea nitrogen/Creatinine [Mass ratio] 35.4 mg/mg Normal [facility] Comment on above: Performed By: #### C MREP #### [facility] [address] [place] [address] Dr. Erasmo Smith CBC AUTO DIFFon 07-12-2022 BASO # 0.1 103/ul Normal 0.0-0.1 [facility] Comment on above: Performed By: #### B GROCERY STORE MANAGER #### [facility] [address] [place] [address] Dr. Erasmo Smith Basophils/100 WBC (Bld) 0.5 % Normal 0.2-2.0 [facility] Comment on above: Performed By: #### B GROCERY STORE MANAGER #### [facility] [address] [place] [address] Dr. Erasmo Smith EO # 0.2 103/ul Normal 0.0-0.7 [facility] Comment on above: Performed By: #### B GROCERY STORE MANAGER #### [facility] [address] [place] [address] Dr. Erasmo Smith Eosinophils/100 WBC (Bld) 2.5 % Normal 0.9-7.0 [facility] Comment on above: Performed By: #### B GROCERY STORE MANAGER #### [facility] [address] [place] [address] Dr. Erasmo Smith Erythrocyte distribution width (RBC) [Ratio] 17.2 % Critically high 11.0-15.0 [facility] Comment on above: Performed By: #### B GROCERY STORE MANAGER #### [facility] [address] [place] [address] Dr. Erasmo Smith Hematocrit (Bld) [Volume fraction] 35.0 % Critically low 36.0-48.0 [facility] Comment on above: Performed By: #### B GROCERY STORE MANAGER #### [facility] [address] [place] [address] Dr. Erasmo Smith Hemoglobin (Bld) [Mass/Vol] 11.3 g/dL Critically low 12.0-16.0 [facility] Comment on above: Performed By: #### B GROCERY STORE MANAGER #### [facility] [address] [place] [address] Dr. Erasmo Smith IG # 0.02 10e3/ul Normal 0.00-0.03 [facility] Comment on above: Performed By: #### B GROCERY STORE MANAGER #### [facility] [address] [place] [address] Dr. Erasmo Smith IG % 0.2 % Normal 0.0-0.5 [facility] Comment on above: Performed By: #### B GROCERY STORE MANAGER #### [facility] [address] [place] [address] Dr. Erasmo Smith LYMPH # 2.3 103/ul Normal 1.2-3.8 [facility] Comment on above: Performed By: #### B GROCERY STORE MANAGER #### [facility] [address] [place] [address] Dr. Erasmo Smith Lymphocytes/100 WBC (Bld) 25.4 % Normal 20.5-60.0 [facility] Comment on above: Performed By: #### B GROCERY STORE MANAGER #### [facility] [address] [place] [address] Dr. Erasmo Smith MANUAL DIFF REQ NO Normal [facility] Comment on above: Performed By: #### B GROCERY STORE MANAGER #### [facility] [address] [place] [address] Dr. Erasmo Smith MCH (RBC) [Entitic mass] 25.5 pg Critically low 26.7-34.0 [facility] Comment on above: Performed By: #### B GROCERY STORE MANAGER #### [facility] [address] [place] [address] Dr. Erasmo Smith MCHC (RBC) [Mass/Vol] 32.3 g/dL Normal 29.9-35.2 [facility] Comment on above: Performed By: #### B GROCERY STORE MANAGER #### [facility] [address] [place] [address] Dr. Erasmo Smith MCV (RBC) [Entitic vol] 78.8 fL Critically low 81.0-99.0 [facility] Comment on above: Performed By: #### B GROCERY STORE MANAGER #### [facility] [address] [place] [address] Dr. Erasmo Smith MONO # 0.7 103/ul Normal 0.3-0.8 [facility] Comment on above: Performed By: #### B GROCERY STORE MANAGER #### [facility] [address] [place] [address] Dr. Erasmo Smith Monocytes/100 WBC (Bld) 7.5 % Normal 1.7-12.0 [facility] Comment on above: Performed By: #### B GROCERY STORE MANAGER #### [facility] [address] [place] [address] Dr. Erasmo Smith NEUT # 5.9 103/ul Normal 1.4-6.5 [facility] Comment on above: Performed By: #### B GROCERY STORE MANAGER #### [facility] [address] [place] [address] Dr. Erasmo Smith Neutrophils/100 WBC (Bld) 63.9 % Normal 43.0-75.0 [facility] Comment on above: Performed By: #### B GROCERY STORE MANAGER #### [facility] [address] [place] [address] Dr. Erasmo Smith Platelet mean volume (Bld) [Entitic vol] 9.0 fL Critically low 9.5-13.5 [facility] Comment on above: Performed By: #### B GROCERY STORE MANAGER #### [facility] [address] [place] [address] Dr. Erasmo Smith PLT 305 103/ul Normal 150-450 [facility] Comment on above: Performed By: #### B GROCERY STORE MANAGER #### [facility] [address] [place] [address] Dr. Erasmo Smith RBC 4.44 106/ul Normal 4.20-5.40 [facility] Comment on above: Performed By: #### B GROCERY STORE MANAGER #### [facility] [address] [place] [address] Dr. Erasmo Smith WBC 9.2 103/ul Normal 4.0-11.0 [facility] Comment on above: Performed By: #### B GROCERY STORE MANAGER #### [facility] [address] [place] [address] CHEST WO CONon [...] by: PAULA DELGADO Date: 2022-05-27 15:27 Normal [facility] HEMOGLOBINon 04-20-2022 Hemoglobin (Bld) [Mass/Vol] 10.6 g/dL Critically low 12.0-16.0 [facility] Comment on above: Performed By: #### H GB ####[facility] [address] [place], [place] [address]SwDr. Erasmo Smith CULTURE SPUTUMon 04-02-2022 CULTURE SPUTUM Isolate 1 Pseudomonas aeruginosa Light growth of ORGANISM 1 Pseudomonas aeruginosa ANTIBIOTIC M.I.C RX STATUS Piperacillin/Tazobac saez 8 S F Ceftazidime 2 S F Imipenem 1 S F Amikacin <=2 S F Gentamicin <=1 S F Tobramycin <=1 S F Ciprofloxacin <=0.25 S F Levofloxacin 0.25 S F Normal [facility] Comment on above: Performed By: #### S PUTCX ####[facility] [address] [place], [place] [address]EpDr. Erasmo Smith CYTOLOGYon 03-30-2022 SENT TO REF LAB 03/31/22 Normal [facility] Comment on above: Performed By: #### C YTO #### [facility] [address] [place], [place] [address] Dr. Erasmo Smith SPUTUM GRAM STAINon 03-30-20 22 COMMENTS Normal [facility] Comment on above: Performed By: #### B GROCERY STORE MANAGER #### [facility] [address] [address] [address] Erasmo Smith DIPHTHEROIDS Normal [facility] Comment on above: Performed By: #### B GROCERY STORE MANAGER #### [facility] [address] [address] [address] Erasmo Smith EPITHELIALS <25 Normal [facility] Comment on above: Performed By: #### B GROCERY STORE MANAGER #### [facility] [address] [address] [address] Erasmo Smith FUNGAL ELEMENTS Normal [facility] Comment on above: Performed By: #### B GROCERY STORE MANAGER #### [facility] [address] [address] [address] Erasmo Smith GRAM NEG BACILLI FEW [facility] Comment on above: Performed By: #### B GROCERY STORE MANAGER #### [facility] [address] [address] [address] Erasmo Smith GRAM NEG DIPPLOCOCCI Normal [facility] Comment on above: Performed By: #### B GROCERY STORE MANAGER #### [facility] [address] [address] [address] Erasmo Smith GRAM POS BACILLI Normal [facility] Comment on above: Performed By: #### B GROCERY STORE MANAGER #### [facility] [address] [address] [address] Erasmo Smith GRAM POSITIVE COCCI MANY Normal [facility] Comment on above: Performed By: #### B GROCERY STORE MANAGER #### [facility] [address] [address] [address] Erasmo Smith WBC (Bld) [#/Vol] 10*3/uL Normal [facility] Comment on above: Performed By: #### B GROCERY STORE MANAGER #### [facility] [address] [address] [address] Erasmo Smith SPUTUM CULTUREon 03-01-2022 Epithelial cells LM Ql (Urine sed) Few Normal [facility] Comment on above: Performed By: #### C XSPTUM ####[facility] [address] [address]Dr. Erasmo Smith Gram Stain Evaluation Comment Normal [facility] Comment on above: Result Comment: This specimen is of good quality and is acceptable for routine bacterial culture. Performed By: #### C XSPTUM ####[facility] [address] [address]Dr. Erasmo Smith Lower Respiratory Culture Final report Normal [facility] Comment on above: Performed By: #### C XSPTUM ####[facility] [address] [address]Dr. Erasmo Smith Result 1 Comment Normal [facility] Comment on above: Result Comment: Few gram positive cocci Performed By: #### C XSPTUM ####[facility] [address] [address]Dr. Erasmo Smith Result Comment: Rout ine respiratory adria Result 2 Normal [facility] Comment on above: Performed By: #### C XSPTUM ####[facility] [address] [address]Dr. Erasmo Smith Result 3 Normal [facility] Comment on above: Performed By: #### C XSPTUM ####[facility] [address] [address]Dr. Erasmo Smith Result 4 Normal [facility] Comment on above: Performed By: #### C XSPTUM ####[facility] [address] [place], [place] [address]Dr. Erasmo Smith White Blood Cells Few Normal [facility] Comment on above: Performed By: #### C XSPTUM ####[facility] [address] [address]DrMeena Smith BNPon 02-24-2022 Natriuretic peptide B (Bld) [Mass/Vol] 319.0 pg/mL Normal <=900.0 [facility] Comment on above: Performed By: #### B GROCERY STORE MANAGER #### [facility] [address] [address] [address] Erasmo Smith CBC AUTO DIFFon 02-24-2022 BASO # 0.1 103/ul Normal 0.0-0.1 [facility] Comment on above: Performed By: #### C MREP #### [facility] [address] [place] [address] Dr. Erasmo Smith Basophils/100 WBC (Bld) 0.5 % Normal 0.2-2.0 [facility] Comment on above: Performed By: #### C MREP #### [facility] [address] [place] [address] Dr. Erasmo Smith EO # 0.3 103/ul Normal 0.0-0.7 [facility] Comment on above: Performed By: #### C MREP #### [facility] [address] [place] [address] Dr. Erasmo Smith Eosinophils/100 WBC (Bld) 3.1 % Normal 0.9-7.0 [facility] Comment on above: Performed By: #### C MREP #### [facility] [address] [place] [address] Dr. Erasmo Smith Erythrocyte distribution width (RBC) [Ratio] 15.1 % Critically high 11.0-15.0 [facility] Comment on above: Performed By: #### C MREP #### [facility] [address] [place] [address] Dr. Erasmo Smith Hematocrit (Bld) [Volume fraction] 33.9 % Critically low 36.0-48.0 [facility] Comment on above: Performed By: #### C MREP #### [facility] [address] [place] [address] Dr. Erasmo Smith Hemoglobin (Bld) [Mass/Vol] 10.7 g/dL Critically low 12.0-16.0 [facility] Comment on above: Performed By: #### C MREP #### [facility] [address] [place] [address] Dr. Erasmo Smith IG # 0.03 10e3/ul Normal 0.00-0.03 [facility] Comment on above: Performed By: #### C MREP #### [facility] [address] [place] [address] Dr. Erasmo Smith IG % 0.3 % Normal 0.0-0.5 [facility] Comment on above: Performed By: #### C MREP #### [facility] [address] [address] [address] Erasmo Smith LYMPH # 2.8 103/ul Normal 1.2-3.8 [facility] Comment on above: Performed By: #### C MREP #### [facility] [address] [address] [address] Erasmo Smith Lymphocytes/100 WBC (Bld) 30.6 % Normal 20.5-60.0 [facility] Comment on above: Performed By: #### C MREP #### [facility] [address] [place] [address] Dr. Erasmo Smith MANUAL DIFF REQ NO Normal [facility] Comment on above: Performed By: #### C MREP #### [facility] [address] [place] [address] Dr. Erasmo Smith MCH (RBC) [Entitic mass] 26.9 pg Normal 26.7-34.0 [facility] Comment on above: Performed By: #### C MREP #### [facility] [address] [place] [address] Dr. Erasmo Smith MCHC (RBC) [Mass/Vol] 31.6 g/dL Normal 29.9-35.2 [facility] Comment on above: Performed By: #### C MREP #### [facility] [address] [place] [address] Dr. Erasmo Smith MCV (RBC) [Entitic vol] 85.2 fL Normal 81.0-99.0 [facility] Comment on above: Performed By: #### C MREP #### [facility] [address] [place] [address] Dr. Erasmo Smith MONO # 0.7 103/ul Normal 0.3-0.8 [facility] Comment on above: Performed By: #### C MREP #### [facility] [address] [place] [address] Dr. Erasmo Smith Monocytes/100 WBC (Bld) 7.9 % Normal 1.7-12.0 [facility] Comment on above: Performed By: #### C MREP #### [facility] [address] [place] [address] Dr. Erasmo Smith NEUT # 5.3 103/ul Normal 1.4-6.5 [facility] Comment on above: Performed By: #### C MREP #### [facility] [address] [address] [address] Erasmo Smith Neutrophils/100 WBC (Bld) 57.6 % Normal 43.0-75.0 [facility] Comment on above: Performed By: #### C MREP #### [facility] [address] [address] [address] Erasmo Smith Platelet mean volume (Bld) [Entitic vol] 9.0 fL Critically low 9.5-13.5 [facility] Comment on above: Performed By: #### C MREP #### [facility] [address] [place] [address] Dr. Erasmo Smith PLT 249 103/ul Normal 150-450 [facility] Comment on above: Performed By: #### C MREP #### [facility] [address] [place] [address] Dr. Erasmo Smith RBC 3.98 106/ul Critically low 4.20-5.40 [facility] Comment on above: Performed By: #### C MREP #### [facility] [address] [place] [address] Dr. Erasmo Smith WBC 9.1 103/ul Normal 4.0-11.0 [facility] Comment on above: Performed By: #### C MREP #### [facility] [address] [place] [address] Dr. Erasmo Smith CTA CHEST WO W [...] PAULA DELGADO Date: 2022-02-24 18:24 Normal [facility] D-DIMERon 02-24-2022 D-DIMER 1.36 mg/L FEU Critically high <=0.59 [facility] Comment on above: Performed By: #### D DIM #### [facility] [address] [address] [address] Erasmo Smith D-DIMER COMMENTS SEE BELOW Normal [facility] [place] [facility] Comment on above: Result Comment: Incr [...] hospitalization. Performed By: #### D DIM #### [facility] [address] [address] [address] Erasmo Smith PROF 14(COMP METB)on 022 Albumin [Mass/Vol] 3.6 g/dL Normal 3.4-5.0 [facility] Comment on above: Performed By: #### C MREP #### [facility] [address] [place] [address] Dr. Erasmo Smith Albumin/Globulin [Mass ratio] 0.8 {ratio} Normal [facility] Comment on above: Performed By: #### C MREP #### [facility] [address] [address] [address] Erasmo Smith ALP [Catalytic activity/Vol] 95 U/L Normal 46-116 [facility] Comment on above: Performed By: #### C MREP #### [facility] [address] [place] [address] Dr. Erasmo Smith ALT [Catalytic activity/Vol] 45 U/L Normal 14-59 [facility] Comment on above: Performed By: #### C MREP #### [facility] [address] [place] [address] Dr. Erasmo Smith Anion gap [Moles/Vol] 15.9 mmol/L Normal [facility] [place] Comment on above: Performed By: #### C MREP #### [facility] [facility] [address] [place] [address] Dr. Erasmo Smith AST [Catalytic activity/Vol] 33 U/L Normal 15-37 [facility] Comment on above: Performed By: #### C MREP #### [facility] [address] [place] [address] Dr. Erasmo Smith Bilirubin [Mass/Vol] 0.5 mg/dL Normal 0.2-1.0 [facility] Comment on above: Performed By: #### C MREP #### [facility] [address] [place] [address] Dr. Erasmo Smith Calcium [Mass/Vol] 9.1 mg/dL Normal 8.5-10.1 [facility] Comment on above: Performed By: #### C MREP #### [facility] [address] [place] [address] Dr. Erasmo Smith Chloride [Moles/Vol] 103 mmol/L Normal 98-107 [facility] Comment on above: Performed By: #### C MREP #### [facility] [address] [place] [address] Dr. Erasmo Smith CO2 [Moles/Vol] 25.1 mmol/L Normal 21.0-32.0 [facility] Comment on above: Performed By: #### C MREP #### [facility] [address] [place] [address] Dr. Erasmo Smith Creatinine [Mass/Vol] 0.77 mg/dL Normal 0.55-1.02 [facility] Comment on above: Performed By: #### C MREP #### [facility] [address] [place] [address] Dr. Erasmo Smith EGFR-AF GREENLANDIC >60 Normal >=60 [facility] Comment on above: Performed By: #### C MREP #### [facility] [address] [place] [address] Dr. Erasmo Smith EGFR-NON AF GREENLANDIC >60 Normal >=60 [facility] Comment on above: Performed By: #### C MREP #### [facility] [address] [place] [address] Dr. Erasmo Smith Globulin (S) [Mass/Vol] 4.3 g/dL Normal [facility] Comment on above: Performed By: #### C MREP #### [facility] [address] [place] [address] Dr. Erasmo Smith Glucose [Mass/Vol] 92 mg/dL Normal 74-106 [facility] Comment on above: Performed By: #### C MREP #### [facility] [address] [place] [address] Dr. Erasmo Smith Potassium [Moles/Vol] 4.0 mmol/L Normal 3.5-5.1 [facility] Comment on above: Performed By: #### C MREP #### [facility] [address] [place] [address] Dr. Erasmo Smith Protein [Mass/Vol] 7.9 g/dL Normal 6.4-8.2 [facility] Comment on above: Performed By: #### C MREP #### [facility] [address] [place] [address] Dr. Erasmo Smith Sodium [Moles/Vol] 140 mmol/L Normal 136-145 [facility] Comment on above: Performed By: #### C MREP #### [facility] [address] [id number] Erasmo Smith Urea nitrogen [Mass/Vol] 17.0 mg/dL Normal 7.0-18.0 [facility] Comment on above: Performed By: #### C MREP #### [facility] [address] [address] [address] Erasmo Smith Urea nitrogen/Creatinine [Mass ratio] 22.1 mg/mg Normal [facility] Comment on above: Performed By: #### C MREP #### [facility] [address] [address] [address] Erasmo Smith PROTIMEon 02-24-2022 INR Coag (PPP) [Relative time] 2.28 {INR} Normal [facility] Comment on above: Performed By: #### P T, PTT ####[facility] [id number] [address]Dr. Erasmo Smith INR GUIDELINES SEE BELOW Normal [place] Comment on above: Result Comment: ABNER RED INR: 2.0 - 3.0 CONDITIONS NOT LISTED BELOW 2.5 - 3.5 FOR PROSTHETIC HEART VALVE REPLACEMENT 2.5 - 3.5 RECURRENT THROMBOSIS Performed By: #### P T, PTT ####[facility] [address] [address]Dr. Erasmo Smith PT Coag (PPP) [Time] 23.3 s Critically high 9.0-11.6 [facility] Comment on above: Performed By: #### P T, PTT ####[facility] [address] [id number]. Erasmo Smith PTTon 02-24-2022 aPTT Coag (Bld) [Time] 34.7 s Normal 22.3-36.2 [facility] Comment on above: Performed By: #### P T, PTT ####[facility] [id number] [address]Dr. Erasmo Smith TROPONIN, HIGH SENSITIVITYon 02-24-2022 HSTROP 6.6 pg/mL Normal 4.0-51.3 [facility] Comment on above: Result Comment: CUT- OFF POINTS HAVE BEEN ESTABLISHED BASED ON THE FOURTH UNIVERSAL DEFINITIONS OF MYOCARDIAL INFARCTION. THE UPPER REFERENCE LIMIT (URL) OF TROPONIN, DEFINED THE 99TH PERCENTILE OF cTnI DISTRIBUTION IN A REFERENCE POPULATION, HAS BEEN CONFIRMED THE DECISION THRESHOLD FOR MA DIAGNOSIS. Performed By: #### C MREP #### [facility] [address] [place], [place] [address] Dr. Erasmo Smith PROTHROMBIN TIMEon 2 INR Coag (PPP) [Relative time] 1.2 {INR} High 0.86-1.16 [facility] Comment on above: Result Comment: INR Theraputic Range: 2.0-3.5 Performed at [facility] [place] [place] [address] [facility] [address] PT Coag (PPP) [Time] 12.7 s Normal 9.3-12.7 [facility] ANTICOAGULANT COUMADIN Normal [facility] Vital Signs Date Time Vital Sign Value Performing Clinician Faci lity 10-07-2021 16:00-0500 Body height 146.69 cm Hong Nevarez Other [employer] Other 10-07-2021 16:00-0500 Body mass index (BMI) [Ratio] 51.01 kg/m2 Hong Nevarez Other [employer] Other 10-07-2021 16:00-0500 Body weight 109.77 kg Hong Geri Other [employer] Other 08-26-2021 15:15-0500 Body height 146.69 cm Hong Geri Other [employer] Other 08-26-2021 15:15-0500 Body mass index (BMI) [Ratio] 51.07 kg/m2 Hong Geri Other [employer] Other 08-26-2021 15:15-0500 Body weight 109.91 kg Hong Nevarez Other [facility] [employer] Other Encounters Encounter Date Encounter Type Care Provider Facility Start: 01-17-2024 End: [facility]: 12-29-2023 End: 12-29-2023 ambulatory SHAIKH CIRA Not Available Start: 12-27-2023 End: 12-27-2023 ambulatory YANCY [facility] Start: 12-26-2023 End: 12-27-2023 ambulatory Miguel Murphy MD Facility: [facility] Start: 12-05-2023 End: 12-06-2023 ambulatory Miguel Murphy MD Facility: [facility] Start: 11-16-2023 End: 11-16-2023 ambulatory Kayley Reeder Facility:[facility] Start: 11-07-2023 End: 11-07-2023 ambulatory SHAIKH CIRA Not Available Start: 10-17-2023 Cristobal Denis MD Work Phone: [facility] Start: 10-17-2023 Cristobal Denis MD Work Phone: [facility] Start: 10-17-2023 End: 10-17-2023 ambulatory SHAIKH CIRA Not Available Start: 10-11-2023 End: 10-11-2023 ambulatory MD Shaikh Denis Work Phone: [facility] Work Phone: Start: 10-11-2023 End: 10-11-2023 Patient encounter procedure MD Shaikh Denis Work Phone: [facility] [place] Work Phone: Start: 09-08-2023 End: 09-08-2023 ambulatory Claire Clement Facility:[facility] Start: 09-08-2023 End: 09-08-2023 ambulatory MD Shaikh Denis Work Phone: [facility] Work Phone: Start: 09-08-2023 End: 09-08-2023 Patient encounter procedure MD Shaikh Denis Work Phone: [facility]-Pacemaker Check Start: 09-06-2023 End: 09-06-2023 ambulatory SHAIKH CIRA Not Available Start: 09-06-2023 Patient encounter procedure Shaikh Cira CUBA Work Phone: [facility] Start: 07-08-2023 End: 07-08-2023 ambulatory [facility] Start: 07-05-2023 End: 07-05-2023 ambulatory [facility] Start: 04-11-2023 End: 04-12-2023 ambulatory Andrius Alistair Murphy MD Facility: [facility] Start: 03-01-2023 End: 03-01-2023 ambulatory [facility] Start: 01-31-2023 End: 02-01-2023 ambulatory ANDRIUS GIEDRAITIS Facility:[facility] Start: 01-28-2023 End: 01-29-2023 ambulatory ANDRIUS GIEDRAITIS Facility:[facility] Start: 01-11-2023 End: 01-12-2023 ambulatory Barbara Esposito Facility:[facility] Start: 01-10-2023 End: 02-09-2023 ambulatory SHAIKH Kymberly DENIS Facility:[facility] Start: 12-16-2022 End: 12-17-[address] DOCTOR KENNEDY Facility:[facility] Start: 12-13-2022 End: 01-07-[address] LUISANA FISHER . Facility:[facility] Start: 2022 End: 12-03-2022 Evaluation and management of inpatient KAYLEY RIVER . Facility:[facility] Start: 11-29-2022 ambulatory Barbara Esposito Facility:[facility] Start: 11-26-2022 End: 11-27-[address] LUISANA FISHER . Facility:[facility] Start: 11-10-2022 End: 12-10-2022 ambulatory CAMACHO H FAWWAAlysa Facility:[facility] Start: 10-13-2022 End: 11-10-2022 ambulatory CAMACHO H FAWWAD Facility:[facility] Start: 09-13-2022 End: 10-13-[address] LUISANA FISHER . Facility:[facility] Start: 08-12-2022 End: 09-12-[address] LUISANA FISHER . Facility:[facility] Start: 07-13-2022 End: 07-14-2022 ambulatory LUIZ SAMSA . Facility:[facility] Start: 07-13-2022 End: 07-14-[address] LUISANA FISHER . Facility:[facility] Start: 07-13-2022 End: 08-11-2022 ambulatory CAMACHO H FAFerWAAlysa Facility:[facility] Start: 07-12-2022 End: 07-13-[address] LUISANA FISHER . Facility:[facility] Start: 06-13-2022 End: 07-12-2022 ambulatory CAMACHO H FAWWAD Facility:[facility] Start: 05-27-2022 End: 05-28-2022 ambulatory LUIZ SAMSA . Facility:[facility] Start: 05-19-2022 End: 05-20-2022 ambulatory LUIZ SAMSA . Facility:[facility] Start: 05-13-2022 End: 06-12-2022 ambulatory CAMACHO H FAWWAD Facility:[facility] Start: 04-20-2022 End: 04-21-2022 ambulatory LUIZ SAMSA . Facility:[facility] Start: 04-12-2022 End: 05-12-2022 ambulatory CAMACHO H FAWWAAlysa Facility:[facility] Start: 03-30-2022 End: 03-30-[address] LUISANA FISHER . Facility:[facility] Start: 03-12-2022 End: 04-09-2022 ambulatory CAMACHO H FAFerWAAlysa Facility:[facility] Start: 02-25-2022 End: 02-25-[address] LUISANA FISHER . Facility:[facility] Start: 02-24-2022 End: 02-25-[address] LUISANA FISHER . Facility:[facility] Start: 10-07-2021 End: 10-07-2021 ambulatory Hong Nevarez Other [employer] Other Start: 10-07-2021 Office outpatient visit 15 minutes Hong Nevarez [facility] Start: 08-26-2021 End: 08-26-2021 ambulatory Hong Nevarez Other [employer] Other Start: 08-26-2021 Office outpatient ne w 45 minutes Hong Nevarez [facility] Gastroenter[facility] Start: 10-11-2020 End: 10-13-2020 Evaluation and management of inpatient ZANE MAYNOR Facility:[facility] Procedures Date Procedure Procedure Detail Performing Clinician Start: 10-11-2023 XR pre/post mri xray MD Shaikh Denis Work Phone: Start: 10-11-2023 MR lumbar spine wo con MD Shaikh Denis Work Phone: Start: 03-01-2023 Follow-up visit Follow-up YANCY DIAZ ACKO Start: 10-13-2020 INSERT PACE. DUAL CH AM IN CHEST SUBCU/FASCIA, OPEN YANCY HENNESSY Start: 10-13-2020 INSERTION OF PACEMAK ER LEAD INTO R VENTRICLE, PERC APPROACH YANCY HENNESSY Start: 10-13-2020 INSERTION OF PACEMAK ER LEAD INTO RIGHT ATRIUM, PERC APPROACH YANCY HENNESSY Start: 09-12-2017 Colonoscopy Shaikh Dominique eid MD Work Phone: Plan of Treatment Date Care Activity Detail Author Start: 09-12-2027 Screening for malign ant neoplasm of colon [facility] Start: 09-06-2024 Medicare Annual Well ness (AWV) Medicare Annual Wellness (AWV) [facility] Start: 11-07-2023 End: 11-07-2023 Patient encounter procedure 11/07/2023 2:30 PM EST Office Visit [facility] [address] [place] [address] Shaikh Denis MD [address] [place] [id number] [facility] Start: 10-17-2023 End: 10-17-2023 Patient encounter procedure 10/17/2023 10:15 AM EST Office Visit [facility] [address] [place] [id number] Shaikh Denis MD [address] [place] [address] Arrived [facility] Comment on above: Arrived Start: 1945 Screening for malign ant neoplasm of colon [facility] Payers Date Payer Category Payer Private Health Insurance [id number] 2023 Self-pay [id number] 2023 Managed Care HMO (unspecified) AETZENAIDA AELEENA [id number] 2023-Present [address] [place] [address] HMO [id number] 2022 Private Health Insurance 2007 Medicare [id number]. [id number] 1959 Medicare [id number] 1959 Private Health Insurance [facility] [id number] 1947 Unknown [id number] 2.16.840.1.986761.3.579.2. 647 1947 Unknown [id number] 2.16.840.1.662658.3.579.2. 727 1947 Unknown [id number] 2.16.840.1.822851.3.579.2. 593 1947 Unknown [id number] 2.16.840.1.703308.3.579.2. 593 1947 Unknown [id number] 2.16.840.1.336205.3.579.2. 593 1947 Unknown [id number] 2.16.840.1.633813.3.579.2. 593 1947 Unknown [id number] 2.16.840.1.478330.3.579.2. 593 1947 Unknown [id number] 2.16.840.1.772331.3.579.2. 593 1947 Unknown [id number] 2.16.840.1.155782.3.579.2. 593 1947 Unknown [id number] 2.16.840.1.125995.3.579.2. 593 1947 Unknown [id number] 2.16.840.1.071681.3.579.2. 593 1947 Unknown [id number] 2.16.840.1.033461.3.579.2. 593 1947 Unknown [id number] 2.16.840.1.594705.3.579.2. 593 1947 Unknown [id number] 2.16.840.1.953369.3.579.2. 593 1947 Unknown [id number] 2.16.840.1.443264.3.579.2. 593 1947 Unknown [id number] 2.16.840.1.533808.3.579.2. 593 1947 Unknown [id number] 2.16.840.1.952832.3.579.2. 593 1947 Unknown [id number] 2.16.840.1.300852.3.579.2. 593 1947 Unknown [id number] 2.16.840.1.064335.3.579.2. 593 1947 Unknown [id number] 2.16.840.1.325555.3.579.2. 593 1947 Unknown [id number] 2.16.840.1.526610.3.579.2. 593 1947 Unknown [id number] 2.16.840.1.328890.3.579.2. 593 1947 Unknown [id number] 2.16.840.1.033243.3.579.2. 593 1947 Unknown [id number] 2.16.840.1.100751.3.579.2. 593 1947 Unknown [id number] 2.16.840.1.984644.3.579.2. 593 1947 Unknown [id number] 2.16.840.1.014068.3.579.2. 593 1947 Unknown [id number] 2.16.840.1.915929.3.579.2. 593 1947 Unknown [id number] 2.16.840.1.802984.3.579.2. 593 1947 Unknown [id number] 2.16.840.1.378760.3.579.2. 1259 1947 Unknown [id number] 2.16.840.1.500654.3.579.2. 1259 1947 Unknown [id number] 2.16.840.1.014952.3.579.2. 1259 1947 Unknown [id number] 2.16.840.1.823593.3.579.2. 1259 8 Unknown [id number] 2.16.840.1.002370.3.579.2. 196 1947 Unknown [id number] 2.16.840.1.644106.3.579.2. 196 1947 Unknown [id number] 2.16.840.1.938672.3.579.2. 196 1947 Unknown [id number] 2.16.840.1.246238.3.579.2. 196 Medicare Medicare Outpatient [id number] 1A [id number] Unknown [facility] [id number] Unknown [id number] 2..840.1.597894.3.579.2. 531 Unknown [id number] 2.160.1.705598.3.579.2. 531 Unknown [id number] 2..840.1.660620.3.579.2. 531 Social History Date Type Detail Facility Start: 08-30-2023 End: 09-06-2023 Sex Assigned At [facility] Start: 1945 Sex Assigned At Female F [facility] Start: 08-18-2023 Tobacco smoking stat [facility] Ex-smoker [facility] History of tobacco use [...] often do you att end scientologist or hindu services? Patient refused [facility] Do you [...] Sex Assigned At Not on file N [facility] Progress note 01-17-2024 Note Date & Type Note Facility 01-17-2024 Note Patient here for 6 m o follow up persistent afib, CAD, hypertension, and sinus node dysfunction. Her device was interrogated in the office last month. Denies chest pain, SOB, lightheadedness/syncope, and bleeding on Eliquis. Says she feels great. Review of Systems Musculoskeletal: Positive for back pain. Neurological: Positive for numbness. All other systems reviewed and are negative. [facility] Progress note 01-17-2024 Note Date & Type Note Facility 01-17-2024 Note Cardiovascular Medic [facility] SUBJECTIVE Chief Complaint Patient presents with Atrial Fibrillation Breann Starks is a 78 y.o. female here for follow-up. HPI PMHx: A-fib, atrial tachycardia s/p ablation 2005, sick sinus syndrome s/p PPM 10/2020 dual-chamber [employer], COPD, mild CAD s/p cardiac cath 2010, SHAWANDA noncompliant with mask, and obesity. She has been doing well since last seen. No significant changes. Denies c/o CP, dyspnea, orthopnea, PND, LE edema, dizziness/LH, palpitations, syncope. Patient Active Problem List Diagnosis Disorder of bursae of shoulder region Chronic obstructive lung disease (CMS/HCC) Atherosclerosis of [place] coronary artery of [place] heart without angina pectoris Diaphragmatic hernia Edema Essential hypertension Malaise and fatigue Obesity Paroxysmal supraventricular tachycardia (CMS/HCC) Premature beats Sinus node dysfunction (CMS/HCC) Persistent atrial fibrillation (CMS/HCC) Vitamin D deficiency Venous insufficiency Steatosis of liver Spinal stenosis Gastric ulcer Osteoarthritis of lumbar spine Osteoarthritis of both knees Hypocalcemia Herpes zoster Cervical radiculopathy Acute pain of left knee Arthritis of left shoulder region Arthritis of right acromioclavicular joint Chronic bilateral low back pain with sciatica Closed fracture of fifth metatarsal bone Contusion of left shoulder Impingement syndrome of right shoulder Medicare annual wellness visit, subsequent Cardiac pacemaker in situ Diastolic dysfunction No past medical history on file. Family History Adopted: Yes Family history unknown: Yes Social History Tobacco Use Smoking status: Former Years: 45 Types: Cigarettes Quit date: 1999 Years since quittin.3 Smokeless tobacco: Never Substance Use Topics Alcohol use: Yes Comment: OCCASIONAL Drug use: Never No Known Allergies ROS Musculoskeletal: Positive for back pain. Neurological: Positive for numbness. All other systems reviewed and are negative. OBJECTIVE Visit Vitals BP 144/85 Pulse 65 Ht 1.499 m (4' 11 ) Wt 108 kg (237 lb) SpO2 98% BMI 47.87 kg/m??? Smoking Status Former BSA 2.12 m??? Medications: Current Outpatient Medications: cholecalciferol (Vitamin D-3) 125 MCG (5000 UT) capsule, Take 1 tablet by mouth in the morning., Disp: , Rfl: Eliquis 5 mg tablet, Take 5 mg by mouth every 12 (twelve) hours., Disp: , Rfl: flecainide (Tambocor) 100 mg tablet, TAKE 1 TABLET (100 MG) BY MOUTH EVERY 12 (TWELVE) HOURS., Disp: 180 tablet, Rfl: 3 spironolactone (Aldactone) 25 mg tablet, TAKE 1 TABLET BY MOUTH EVERY DAY, Disp: 90 tablet, Rfl: 3 verapamil ER (Veralan) 180 mg 24 hr capsule, Take 2 capsules (360 mg) by mouth in the morning., Disp: 180 capsule, Rfl: 3 Physical Exam Vitals reviewed. Constitutional: Appearance: Normal appearance. She is obese. HENT: Head: Normocephalic and atraumatic. Right Ear: External ear normal. Left Ear: External ear normal. Eyes: Extraocular Movements: Extraocular movements intact. Conjunctiva/sclera: Conjunctivae normal. Pupils: Pupils are equal, round, and reactive to light. Neck: Vascular: No carotid bruit. Cardiovascular: Rate and Rhythm: Normal rate and regular rhythm. Pulses: Normal pulses. Heart sounds: Normal heart sounds. Pulmonary: Effort: Pulmonary effort is normal. Breath sounds: Normal breath sounds. Abdominal: General: Bowel sounds are normal. Palpations: Abdomen is soft. Musculoskeletal: Cervical back: Neck supple. Right lower leg: No edema. Left lower leg: No edema. Skin: General: Skin is warm and dry. Neurological: General: No focal deficit present. Mental Status: She is alert and oriented to person, place, and time. Psychiatric: Mood and Affect: Mood normal. Behavior: Behavior normal. Thought Content: Thought content normal. Judgment: Judgment normal. Labs: Legacy Encounter on 10/13/2020 Component Date Value Ref Range Status Auto WBC 10/13/2020 7.53 4.00 - 10.60 10*3/uL Final RBC 10/13/2020 5.04 (H) 3.80 - 5.00 10*6/uL Final Hemoglobin 10/13/2020 15.8 (H) 12.0 - 15.0 g/dL Final Hematocrit 10/13/2020 46.5 (H) 36.0 - 45.0 % Final MCV 10/13/2020 92.3 82.0 - 98.0 fL Final MCH 10/13/2020 31.3 27.0 - 33.0 pg Final MCHC 10/13/2020 34.0 32.0 - 35.0 g/dL Final RDW 10/13/2020 13.2 11.5 - 15.0 % Final Platelets 10/13/2020 259 150 - 400 10*3/uL Final Neutrophils % 10/13/2020 58.4 40.0 - 72.0 % Final Immature Granulocyte 10/13/2020 0.3 0.0 - 1.0 % Final Lymphocytes % 10/13/2020 29.9 20.0 - 45.0 % Final Monocytes % 10/13/2020 8.0 5.0 - 12.0 % Final Eosinophils % 10/13/2020 2.7 0.0 - 6.0 % Final Basophils % 10/13/2020 0.7 0.0 - 1.0 % Final Granulocyte Abs 10/13/2020 4.4 1.6 - 7.6 10*3/uL Final Immature Granulocyte Abs 10/13/2020 0.0 0.0 - 0.2 10*3/uL Final Lymphocytes Absolute 10/13/2020 2.3 1.2 - 4.0 10*3/uL Final Monocytes Absolu (more content not included)... [facility] Progress note 07-05-2023 Note Date & Type Note Facility 07-05-2023 Note [facility] Electrophysiology Consult Note Reason for visit: Afib. [...] sick sinus syndrome s/p PPM 10/2020 dual-chamber [employer], COPD, mild CAD s/p cardiac cath [...] could not afford DOAC. Patient underwent dual-chamber [employer] pacemaker placement on 10/13/2020. On subsequent [...] coming from the right superior pulmonary vein ---- PMH: No past medical history on file. [...] both knees Hypocalcemi (more content not included)... [facility] Progress note 03-01-2023 Note Date & Type Note Facility 03-01-2023 Note [facility] Electrophysiology Consult Note Reason for visit: 6-month [...] sick sinus syndrome s/p PPM 10/2020 dual-chamber [employer], COPD, mild CAD s/p cardiac cath [...] could not afford DOAC. Patient underwent dual-chamber [employer] pacemaker placement on 10/13/2020. On subsequent [...] coming from the right superior pulmonary vein ---- PMH: History reviewed. No pertinent past medical [...] KNEE ARTHROPLASTY Bi (more content not included)... [facility] Discharge summary note 12-13-2022 Note Date & Type Note Facility 12-13-2022 Note [id number] 1.00CD:127 [facility] Evaluation note 10-07-2021 Note Date & Type Note Facility 10-07-2021 Evaluation note Encounter Date Diagnosis Assessment Notes Sep, LOJA (nonalcoholic steatohepatitis ) (ICD-10 - K75.81) OBTAIN FIBROSURE RESULTS FROM [facility] REASSURANCE ON RESULTS PT ENCOURAGED WEIGHT LOSS RTO ONE YEAR WITH LABS ANNUALLY Sep, Unspecified cirrhosis of liver (ICD-10 - K74.60) [employer] Other Evaluation note 08-26-2021 Note Date & Type Note Facility 08-26-2021 Evaluation note Encounter Date Diagnosis Assessment Notes Aug, Nonalcoholic steatohepatitis (LOJA) (ICD-10 - K75.81) RTO 6-8 WEEKS Aug, Unspecified cirrhosis of liver (ICD-10 - K74.60) Aug, Morbid obesity (ICD-10 - E66.01) [employer] Other Evaluation note Note Date & Type Note Facility Evaluation note No assessment information availa [facility] Work Phone: History general Narrative - Reported Note Date & Type Note Facility History general Narrative - Reported Type Medical History COPD Medical History a.fib Medical [...] Surgical History pacemaker Hospitalization History see above [employer] Other Summary Purpose Family History No Family [...] and content) DATE CREATED AUTHOR 10/23/2021 [facility] DATE CREATED AUTHOR AUTHOR'S ORGANIZ ATION 01/22/2022 [facility] DATE CREATED AUTHOR AUTHOR'S ORGANIZ ATION 01/14/2023 [facility] DATE CREATED AUTHOR AUTHOR'S ORGANIZ ATION 02/18/2023 [facility] DATE CREATED AUTHOR AUTHOR'S ORGANIZ ATION 11/27/2023 [facility] DATE CREATED AUTHOR AUTHOR'S ORGANIZ ATION 12/31/2023 [facility] EPIC DATE CREATED AUTHOR AUTHOR'S ORGANIZ ATION 01/17/2024 [facility] DATE CREATED AUTHOR AUTHOR'S ORGANIZ ATION 01/28/2024 [facility] REASON FOR VISIT (unrecogniz ed [...] October 11, 2023 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 [employer] provides no warranty or guarantee of the accuracy or completeness [phone] information in this [id number]
== END 2024-02-15 08:45 | disposition home or self-care (01) ==
PROVIDERS: PCP Internal Medicine; Visit Provider Nurse Practitioner
DX: M25.512 Pain in left shoulder (principal); M48.062 Spinal stenosis, lumbar region with neurogenic claudication
CPT/HCPCS: G0463

== ENCOUNTER 2024-02-21 17:12 | Outpatient (OUT) | payer MEDICARE, SELFPAY ==
--- OUTSIDE RECORDS SUMMARY | 2024-02-21 17:26 | XMS_ITS | CCD ---
Author Organization [facility] Care Team Providers Care Data Migration Consultant Name Role Phone ZANE MCGUIRE Admitting Unavailable YANCY HENNESSY Referring Unavailable LUISANA FISHER Primary Care Unavailable ZANE MCGUIRE Attending Unavailable YANCY HENNESSY Surgeon Unavailable OK Procedure Practitioner UnavailHong Ambrose Unavailable Barbara Esposito [...] Admitting Unavailable RIVER ., KAYLEY Attending Unavailable [place], DR HONG Morgan Consulting Unavailable FISHER ., [...] Provider MD Santos Denisikh Primary Care Provider [phone] THANG Clement Attending Provider Cira CUBA [facility] Primary Care Provider [phone] Claire Clement Admitting Unavailable Claire Clement Attending [facility]available [facility] Unavailable Kayley Reeder Admitting [...] Propensity to adverse reactions (disorder) 2 [facility] Repository (2 sources) NSAIDs Propensity to adverse reactions HEART ISSUES [employer] Other (1 source) meloxicam; Translations: [Mobic] Drug Allergy [facility] Repository (1 source) No Known Medication Allergies; Translations: [No Known Medication Allergies] Propensity to adverse reactions (disorder) [facility] Repository (1 source) Adhesive agent Drug allergy (disorder) [address] [place] [address] Repository (1 source) NSAIDs Drug allergy (disorder) [address] [place] [address] Repository Medications Current Medications Medication Drug Class(es) [...] 0 10/13/2023 Active take 1 capsule by [facility] every twenty-four hours Omeprazole 40 MG [...] 02/14/2023 02/14/2024 Active take 1 capsule by [facility] every twenty-four hours Verapamil HCl ER [...] disease (2 sources) Atherosclerotic heart disease of [place] coronary artery without angina pectoris; Translations: [Coronary [...] Onset: 3 Episodic Other aftercare (1 source) jail (current) use of anticoagulants; Translations: [HALFWAY CURRNT USE 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] Onset: 3 Episodic Other aftercare (1 source) Other director long term care (current) drug therapy; Translations: [OTH HALFWAY CURRENT DRUG THERAPY] Onset: 3 Episodic Other [...] her throat. I called [employer] from [facility] and he told me this feeling she's having should not be from her device. Patient informed. I suggested she see PCP for this. She verbalized understanding. Normal [facility] Office Visiton 01-17-2024 Follow-up visit [id number] Breann Starks 1945 F Date Provider Department Center 01/17/2024 NICANOR REGAN Family History Adopted: Yes Family history unknown: Yes Family Status - Relation Status Age at Mother Father Level of Service:99644 OK OFFICE/OUTPATIENT ESTABLISHED MOD MDM 30 MIN Reason for Visit and Comments: Atrial Fibrillation [80] Normal [facility] XR lumbar spine 6V w bending on 11-16-2023 XR lumbar spine 6V w bending [facility] [place] [address] XRay Report Signed Patient: Breann Starks MR#: [id number] : 1945 Acct:[id number] Age/Sex: 77 / F ADM Date: 11/16/23 Loc: XD Room: Type: [facility] Attending Dr: Kayley DESIR Copies to: THANG [...] Benton Jr., DMeenaOMeena11/16/2023 4:37 PM Dictation Location: [place] [address] Transcribed By: [facility] 11/16/23 1637 Dictated By: Francisco J Benton Jr, DO 11/16/23 1636 Signed By: 11/16/23 1637 [facility] MR lumbar spine wo conon MR lumbar spine wo con [facility] Main [place] [address] [place] [address] XRay Report Signed Patient: Breann Starks MR#: [id number] 171 : 1945 Acct:[id number] Age/Sex: 77 / F ADM Date: 10/11/23 Loc: Room: Type: [facility] Attending Dr: Claire DESIR Copies to: THANG Porter Ordering Provider: THANG Porter Date of Service: 10/11/23 MR/MR lumbar spine wo con: LUMBAR RADICULPATHY ([id number]) XR/XR pre/post mri xray: LUMBAR RADICULPATHY CLINICAL [...] Eleanor Reece M.D.10/11/2023 4:10 PM Dictation Location: [facility]--12 Transcribed By: [facility] 10/11/23 161 Dictated By: Eleanor Reece MD 10/11/23 1133 Signed By: 10/11/23 1610 [facility] Office Visiton 07-05-2023 Follow-up visit [id number] Kj Starksa 1945 Date Provider Department Center 07/05/2023 YANCY IVERSON Family History Adopted: Yes Family history unknown: Yes Family Status - Relation Status Age at Mother Father Level of Service:98630 [place] OFFICE/OUTPATIENT ESTABLISHED LOW MDM 20-29 MIN Normal [facility] Office Visiton 03-01-2023 Follow-up visit [id number] Breann Starks 1945 Date Provider Department Center 03/01/2023 YANCY IVERSON Family History Adopted: Yes Family history unknown: Yes Family Status - Relation Status Age at Mother Father Level of Service:81165 [place] OFFICE/OUTPATIENT ESTABLISHED MOD MDM 30-39 MIN Reason for Visit and Comments: Follow-up [852060] - 3 month follow up Normal [facility] XR LSPINE W_OBLS AND FLEX_EX Ton [...] by: PAULA DELGADO Date: 2023-01-31 11:34 Normal [facility] Physician Referralon 023 Physician Referral [id number] #1.00CD:127 Normal [facility] Ambulatory Visit Summaryon 0 01-11-2023 Ambulatory [...] Someone Will Contact You Regarding These Appointments [facility] External Ambulatory Referral, Patient choice/referral by family/friend, Pain Management, [facility] Pain managment., 01/11/23 11:02:00 EDT, Sciatica of left side Normal [facility] Ambulatory Visit Summary BREANN STARKS :1945 [...] longer receiving treatment for. Depression Migraines Normal [facility] Family Medicine Office/Clini c Noteon 01-11-2023 Family Medicine Office/Clinic Note HPI Staff Breann is a 77 year old female who presents today to [facility]. Establish Care: History: A fib, COPD, OA of LS and bilateral knees, PSVT, fatty liver, cervical radiculopathy, pacemaker, cirrhosis of the liver History of specialists: Dr. Gonzales, Dr. Kaur-Cardiology, Dr. Martin- chiropractor, [facility] Last provider: Elizabeth Any recent labs: Jul 2022 Health Maintenance UTD: Colonoscopy: 2012, pt is due Mammogram: December 2022 at [facility] which was normal Pelvic/Pap: pt had [...] longer taking that. will refer back to [place] [facility]. All questions answered. RTC as needed Ordered: methylPREDNISolone, = 1 packet(s), Oral, As Directed, as directed on package labeling, X 6 day(s), # 21 tab(s), Refills(s) 0, Pharmacy: [facility]/pharmacy #[id number], 141, cm, 01/11/23 10:30:00 EDT, Height/Length Dosing, 107.2, kg, 01/11/23 10:30:00 EDT, Weight Dosing [facility] External Ambulatory Referral 2. Myalgia (M79.10: Myalgia, unspecified site) medrol dose pack ordered Ordered: methylPREDNISolone, = 1 packet(s), Oral, As Directed, as directed on package labeling, X 6 day(s), # 21 tab(s), Refills(s) 0, Pharmacy: [facility]/pharmacy #[id number], 141, cm, 01/11/23 10:30:00 EDT, Height/Length Dosing, 107.2, kg, 01/11/23 10:30:00 EDT, Weight Dosing [facility] External Ambulatory Referral BMI 50.0-59.9, adult (Z68.43: [...] Oral, D (more content not included)... Normal [facility] Comment on above: Result Comment: Elec tronically Signed By: Barbara Dai\.br\Date and Time Signed: 01/11/23 11:12 EDT Lab Reportson 12-22-2022 Lab Reports [id number] #1.00CD:127 Normal [facility] LIPID PROFILEon 12-16-2022 CHOL-HDL RATIO NORM SEE BELOW Normal [facility] Comment on above: Result Comment: 3.3 - 4.4 LOW RISK 4.4 - 7.1 AVERAGE RISK 7.1 - 11.0 MODERATE RISK >11.0 HIGH RISK Performed By: #### L IPID ####[facility] [address] [place] [id number]. Erasmo Smith Cholesterol [Mass/Vol] 105 mg/dL Normal <=200 [facility] Comment on above: Performed By: #### L IPID ####[facility] [address] [place] [id number]. Heavenean Luis Cholesterol in HDL [Mass/Vol] 48 mg/dL Normal 40-60 [facility] Comment on above: Performed By: #### L IPID ####[facility] [address]df[address] [place] [id number]. Erasmo Luis Cholesterol in LDL [Mass/Vol] 48.2 mg/dL Normal [facility] Comment on above: Performed By: #### L IPID ####[facility] [address] [place] [address]Dr. Erasmo Luis Cholesterol.total/Chol esterol in HDL [Mass ratio] 2.2 {ratio} Normal [facility] Comment on above: Performed By: #### L IPID ####[facility] Qnzgnm[address]up[address] [place] [phone]. Erasmo Smith HDL NORMAL > or = 60 mg/dl - LOW CARDIOVASCULAR RISK <40 mg/dl - HIGH CARDIOVASCULAR RISK Normal [facility] Comment on above: Performed By: #### L IPID ####[facility] [address] [place] [id number]. Heavenean Smith LDL CALC NORMAL SEE BELOW Normal [facility] Comment on above: Result Comment: <100 mg/dl OPTIMAL 100 - 129 mg/dl NEAR OR ABOVE OPTIMAL 130 - 159 mg/dl BORDERLINE HIGH 160 - 189 mg/dl HIGH >190 mg/dl VERY HIGH Performed By: #### L IPID ####[facility] [address]sexwkfaeg[address] [place] [id number]. Erasmo Smith Triglyceride [Mass/Vol] 44 mg/dL Normal <=150 [facility] Comment on above: Performed By: #### L IPID ####[facility] [address] [place], [place] [address]Df. Erasmo Smith VLDL CALC 8.8 mg/dL Normal [facility] Comment on above: Performed By: #### L IPID ####[facility] [address] [place], [place] [address]Yq. Erasmo Smith Echocardiographyon Echocardiography [id number] #1.00CD:127 Normal [facility] Correspo ndenceon 12-13-2022 Outside [facility] Correspondence [id number] #1.00CD:127 Normal [facility] Correspondence [id number]# 1.00CD:127 Normal [facility] CULTURE BLOODon 12-04-2022 Microscopic examination [...] F Trimethoprim/Sulfame thoxazole <=20 S F Normal [facility] Comment on above: Performed By: #### B LDCX1 ####[facility] [address] [place] [phone]. Erasmo Smith BNPon 12-03-2022 Natriuretic peptide B (Bld) [Mass/Vol] 413.0 pg/mL Normal <=1,800.0 [facility] Comment on above: Performed By: #### B DEPUTY CORONER #### [facility] Laboratory [address] [place] [address] [address] Erasmo Smith CBC AUTO DIFFon 12-03-2022 BASO # 0.0 103/ul Normal 0.0-0.1 [facility] Comment on above: Performed By: #### C BC ####[facility] [address] [place] [address]Dr. Erasmo Smith Basophils/100 WBC (Bld) 0.2 % Normal 0.2-2.0 [facility] Comment on above: Performed By: #### C BC ####[facility] [address] [place] [address]DrMeena Smith EO # 0.4 103/ul Normal 0.0-0.7 [facility] Comment on above: Performed By: #### C BC ####[facility] [address] [place], [place] [address]DrMeena Smith Eosinophils/100 WBC (Bld) 2.1 % Normal 0.9-7.0 [facility] Comment on above: Performed By: #### C BC ####[facility] [address] [place] [address]DrMeena Smith Erythrocyte distribution width (RBC) [Ratio] 17.2 % Critically high 11.0-15.0 [facility] Comment on above: Performed By: #### C BC ####[facility] [address] [place] [address]DrMeena Smith Hematocrit (Bld) [Volume fraction] 29.2 % Critically low 36.0-48.0 [facility] Comment on above: Performed By: #### C BC ####[facility] [address] [place], [place] [address]DrMeena Smith Hemoglobin (Bld) [Mass/Vol] 9.5 g/dL Critically low 12.0-16.0 [facility] Comment on above: Performed By: #### C BC ####[facility] [address]ms[address] [place] [phone]. Erasmo Smith IG # 0.13 10e3/ul Critically high 0.00-0.03 [facility] Comment on above: Performed By: #### C BC ####[facility] [address]ftv[address]mc[address] [place] [address]Dr. Erasmo Smith IG % 0.8 % Critically high 0.0-0.5 [facility] Comment on above: Performed By: #### C BC ####[facility] [address] [place] [address]Dr. Erasmo Smith LYMPH # 1.8 103/ul Normal 1.2-3.8 [facility] Comment on above: Performed By: #### C BC ####[facility] [address] [place] [address]Dr. Erasmo Smith Lymphocytes/100 WBC (Bld) 10.3 % Critically low 20.5-60.0 [facility] Comment on above: Performed By: #### C BC ####[facility] [address] [place] [address]Dr. Erasmo Smith MANUAL DIFF REQ NO Normal [facility] Comment on above: Performed By: #### C BC ####[facility] [address] [place] [address]Dr. Erasmo Smith MCH (RBC) [Entitic mass] 25.7 pg Critically low 26.7-34.0 [facility] Comment on above: Performed By: #### C BC ####[facility] [address] [place] [address]Dr. Erasmo Smith MCHC (RBC) [Mass/Vol] 32.5 g/dL Normal 29.9-35.2 [facility] Comment on above: Performed By: #### C BC ####[facility] [address] [place] [phone]. Erasmo Smith MCV (RBC) [Entitic vol] 79.1 fL Critically low 81.0-99.0 [facility] Comment on above: Performed By: #### C BC ####[facility] [address] [place] [phone]. Erasmo Smith MONO # 1.5 103/ul Critically high 0.3-0.8 [facility] Comment on above: Performed By: #### C BC ####[facility] [address] [place] [phone]. Erasmo Smith Monocytes/100 WBC (Bld) 8.7 % Normal 1.7-12.0 [facility] Comment on above: Performed By: #### C BC ####[facility] [address] [place] [phone]. Erasmo Smith NEUT # 13.4 103/ul Critically high 1.4-6.5 [facility] Comment on above: Performed By: #### C BC ####[facility] [address] [place] [phone]. Erasmo Smith Neutrophils/100 WBC (Bld) 77.9 % Critically high 43.0-75.0 [facility] Comment on above: Performed By: #### C BC ####[facility] [address] [place] [phone]. Erasmo Smith Platelet mean volume (Bld) [Entitic vol] 9.3 fL Critically low 9.5-13.5 [facility] Comment on above: Performed By: #### C BC ####[facility] [address] [place] [phone]. Erasmo Smith PLT 205 103/ul Normal 150-450 [facility] Comment on above: Performed By: #### C BC ####[facility] [address] [place] [phone]. Erasmo Smith RBC 3.69 106/ul Critically low 4.20-5.40 [facility] Comment on above: Performed By: #### C BC ####[facility] [address] [place] [phone]. Erasmo Smith WBC 17.2 103/ul Critically high 4.0-11.0 [facility] Comment on above: Performed By: #### C BC ####[facility] [address] [place] [address]Dr. Erasmo Smith MAGNESIUMon 12-03-2022 Magnesium [Mass/Vol] 1.9 mg/dL Normal 1.8-2.4 [facility] Comment on above: Performed By: #### B DEPUTY CORONER #### [facility] [address] [place] [address] [address] Erasmo Smith PROF 14(COMP METB)on 023 Albumin [Mass/Vol] 2.6 g/dL Critically low 3.4-5.[address] [facility] Comment on above: Performed By: #### B DEPUTY CORONER #### [facility] [address] [place] [address] Dr. Erasmo Smith Albumin/Globulin [Mass ratio] 0.6 {ratio} Normal [facility] Comment on above: Performed By: #### B DEPUTY CORONER #### [facility] [address] [place] [address] Dr. Erasmo Smith ALP [Catalytic activity/Vol] 123 U/L Critically high 46-116 [facility] Comment on above: Performed By: #### B DEPUTY CORONER #### [facility] [address] [place] [address] Dr. Erasmo Smith ALT [Catalytic activity/Vol] 28 U/L Normal 14-59 [facility] Comment on above: Performed By: #### B DEPUTY CORONER #### [facility] [address] [place] [address] Dr. Erasmo Smith Anion gap [Moles/Vol] 9.4 mmol/L Normal [facility] Comment on above: Performed By: #### B DEPUTY CORONER #### [facility] [address] [place] [address] Dr. Erasmo Smith AST [Catalytic activity/Vol] 21 U/L Normal 15-37 [facility] Comment on above: Performed By: #### B DEPUTY CORONER #### [facility] [address] [place] [address] Dr. Erasmo Smith Bilirubin [Mass/Vol] 0.3 mg/dL Normal 0.2-1.0 [facility] Comment on above: Performed By: #### B DEPUTY CORONER #### [facility] [address] [place] [address] Dr. Erasmo Smith Calcium [Mass/Vol] 8.3 mg/dL Critically low 8.5-10.[address] [facility] Comment on above: Performed By: #### B DEPUTY CORONER #### [facility] [address] [place] [address] Dr. Erasmo Smith Chloride [Moles/Vol] 105 mmol/L Normal 98-107 [facility] Comment on above: Performed By: #### B DEPUTY CORONER #### [facility] [address] [place] [address] Dr. Erasmo Smith CO2 [Moles/Vol] 27.1 mmol/L Normal 21.0-32.0 [facility] Comment on above: Performed By: #### B DEPUTY CORONER #### [facility] [address] [place] [address] Dr. Erasmo Smith Creatinine [Mass/Vol] 0.55 mg/dL Normal 0.55-1.02 [facility] Comment on above: Performed By: #### B DEPUTY CORONER #### [facility] [address] [place] [address] Dr. Erasmo Smith EGFR-AF [place] >60 Normal >=60 [facility] Comment on above: Performed By: #### B DEPUTY CORONER #### [facility] [address] [place] [address] Dr. Erasmo Smith EGFR-NON AF [place] >60 Normal >=60 [facility] Comment on above: Performed By: #### B DEPUTY CORONER #### [facility] [address] [place] [address] Dr. Erasmo Smith Globulin (S) [Mass/Vol] 4.0 g/dL Normal [facility] Comment on above: Performed By: #### B DEPUTY CORONER #### [facility] [address] [place] [address] Dr. Erasmo Smith Glucose [Mass/Vol] 132 mg/dL Critically high 74-106 [facility] Comment on above: Performed By: #### B DEPUTY CORONER #### [facility] [address] [place] [address] Dr. Erasmo Smith Potassium [Moles/Vol] 3.5 mmol/L Normal 3.5-5.1 [facility] Comment on above: Performed By: #### B DEPUTY CORONER #### [facility] [address] [place] [address] Dr. Erasmo Smith Protein [Mass/Vol] 6.6 g/dL Normal 6.4-8.2 [facility] Comment on above: Performed By: #### B DEPUTY CORONER #### [facility] [address] [place] [address] Dr. Erasmo Smith Sodium [Moles/Vol] 138 mmol/L Normal 136-145 [facility] Comment on above: Performed By: #### B DEPUTY CORONER #### [facility] [address] [place] [address] Dr. Erasmo Smith Urea nitrogen [Mass/Vol] 24.0 mg/dL Critically high 7.0-18.0 [facility] Comment on above: Performed By: #### B DEPUTY CORONER #### [facility] [address] [place] [address] Dr. Erasmo Smith Urea nitrogen/Creatinine [Mass ratio] 43.6 mg/mg Normal [facility] Comment on above: Performed By: #### B DEPUTY CORONER #### [facility] [address] [place] [address] Dr. Erasmo Smith PROTIMEon 12-03-2022 INR Coag (PPP) [Relative time] 4.41 {INR} Critically high [facility] Comment on above: Performed By: #### C MREP #### [facility] [address] [place] [address] Dr. Erasmo Smith INR GUIDELINES SEE BELOW Normal [facility] Comment on above: Result Comment: ABNER RED INR: 2.0 - 3.0 CONDITIONS NOT LISTED BELOW 2.5 - 3.5 FOR PROSTHETIC HEART VALVE REPLACEMENT 2.5 - 3.5 RECURRENT THROMBOSIS Performed By: #### C MREP #### [facility] [address] [place] [address] Dr. Erasmo Smith PT Coag (PPP) [Time] 43.0 s Critically high 9.0-11.6 [facility] Comment on above: Performed By: #### C MREP #### [facility] [address] [place] [address] [address] Erasmo Smith BLOOD CULTURE ID PANELon A. baumannii Not detected Normal NOT DETECTED [facility] Comment on above: Performed By: #### B CID2 ####[facility] [address] [place] [id number]. Erasmo Smith Bacteriodes fragilis Not detected Normal NOT DETECTED [facility] Comment on above: Performed By: #### B CID2 ####[facility] [address] [place] [address]Dr. Erasmo Smith BCID CONTROLS PASSED Normal [facility] Comment on above: Performed By: #### B CID2 ####[facility] [address] [place] [address]Dr. Erasmo Smith BCIDBTHD BLOOD CULTURE BOTTLE INFORMATION Normal [facility] Comment on above: Performed By: #### B CID2 ####[facility] [address] [place] [address]Dr. Erasmo Smith BCIDHD1 ANTIMICROBIAL RESISTANCE GENES Normal [facility] Comment on above: Performed By: #### B CID2 ####[facility] [address] [place] [address]Dr. Erasmo Smith BCIDHD2 SEE BELOW Normal [facility] Comment on above: Result Comment: Note : Antimicrobial resitance can occur via multiple mechanisms. A Not Detected result for the [employer] antomicrobial resistance gene assays does not indicate antimicrobial susceptibility. Subculturing is required for species identification and susceptibility testing of isolates. Performed By: #### B CID2 ####[facility] [address]ke[address] [place] [address]Dr. Erasmo Smith BCIDHD3 Positive Normal [facility] Comment on above: Performed By: #### B CID2 ####[facility] Cctsfmdryk[address] [place] [address]Dr. Erasmo Smith BCIDHD4 Negative Normal [facility] Comment on above: Performed By: #### B CID2 ####[facility] Ekrbpiid[address] [place] [address]Dr. Erasmo Smith BCIDHD5 YEAST Normal [facility] Comment on above: Performed By: #### B CID2 ####[facility] Iyrnbbrbfc[address] [place] [address]Dr. Yiean Smith Bottle Set: Set 1 Normal [facility] Comment on above: Performed By: #### B CID2 ####[facility] Pnpssxwrqz[address] [place] [address]Dr. Erasmo Smith Bottle: Anaerobic Normal [facility] Comment on above: Performed By: #### B CID2 ####[facility] Qdftdxlstb[address] [place] [address]Dr. Yiean Smith C. neoformans/gattii Not detected Normal NOT DETECTED [facility] Comment on above: Performed By: #### B CID2 ####[facility] Nfxvnhq[address] [place], [place] [address]Dr. Yiean [facility] Naye albicans Not detected Normal NOT DETECTED [facility] Comment on above: Performed By: #### B CID2 ####[facility] Mmqfjgrurm[address] [place], [place] [address]Dr. Yiean Smith Naye auris Not detected Normal NOT DETECTED [facility] Comment on above: Performed By: #### B CID2 ####[facility] Uhsqvyyuiw[address] [place], [place] [address]Dr. Yiena Smith Naye glabrata Not detected Normal NOT DETECTED [facility] Comment on above: Performed By: #### B CID2 ####[facility] Zfdmwjefdt5[address] [place], [place] [address]Dr. Yiean Smith Naye Krusei Not detected Normal NOT DETECTED [facility] Comment on above: Performed By: #### B CID2 ####[facility] Ieaktokcox[address] [place], [place] [address]Dr. Yilan Smith Naye Parapsilosis Not detected Normal NOT DETECTED [facility] Comment on above: Performed By: #### B CID2 ####[facility] Ujnuprwfty6[address] [place], [place] [address]Dr. Yiean Smith Naye Tropicalis Not detected Normal NOT DETECTED [facility] Comment on above: Performed By: #### B CID2 ####[facility] Aghoyhgbhx4[address] [place], [place] [address]Dr. Erasmo Smith CTX-M Resistant Gene Not Applicable Normal NOT DETECTE D [facility] Comment on above: Performed By: #### B CID2 ####[facility] Vjmlhqaold13[address] [place], [place] [address]Dr. Erasmo Smith E. Cloacae complex Not detected Normal NOT DETECTED [facility] Comment on above: Performed By: #### B CID2 ####[facility] Osrtfuzerf3[address] [place], [place] [address]Dr. Erasmo Smith E. faecalis Not detected Normal NOT DETECTED [facility] Comment on above: Performed By: #### B CID2 ####[facility] Ceykskwkeb[address] [place], [place] [address]Dr. Erasmo Smith E. faecium Not detected Normal NOT DETECTED [facility] Comment on above: Performed By: #### B CID2 ####[facility] Rlxwzdkwzz439[address] [place], [place] [address]Dr. Erasmo Smith Enterobacteriaceae Detected Critically abnormal NOT DETECTED [facility] Comment on above: Performed By: #### B CID2 ####[facility] Pzejlucmtz35[address] [place], [place] [address]Dr. Erasmo Smith Escherichia coli Detected Critically abnormal NOT DETECTED [facility] Comment on above: Performed By: #### B CID2 ####[facility] Eyrzvfvqqv9[address] [place], [place] [address]Dr. Erasmo Smith H. influenzae Not detected Normal NOT DETECTED [facility] Comment on above: Performed By: #### B CID2 ####[facility] Tmadvfcszf[address] [place], [place] [address]Dr. Erasmo Smith IMP Resistant Gene Not Applicable Normal NOT DETECTED [facility] Comment on above: Performed By: #### B CID2 ####[facility] Adtvxahpus0867[address] [place], [place] [address]Dr. Erasmo Smith K. oxytoca Not detected Normal NOT DETECTED [facility] Comment on above: Performed By: #### B CID2 ####[facility] Xeswditdit7[address] [place] [address]Dr. Erasmo Smith K. pneumoniae Not detected Normal NOT DETECTED [facility] Comment on above: Performed By: #### B CID2 ####[facility] Qrydqrmlwg6059[address] [place], [place] [address]Dr. Erasmo Smith Klebsiella aerogenes Not detected Normal NOT DETECTED [facility] Comment on above: Performed By: #### B CID2 ####[facility] Qkfkfvbatu2201[address] [place], [place] [address]Dr. Erasmo Smith KPC Resistant Gene Not detected Normal NOT DETECTED [facility] Comment on above: Performed By: #### B CID2 ####[facility] Jqrwprwgis7465[address] [place], [place] [address]Dr. Erasmo Smith List. monocytogenes Not detected Normal NOT DETECTED [facility] Comment on above: Performed By: #### B CID2 ####[facility] Gaewlthuvm4669[address] [place], [place] [address]Dr. Erasmo Smith Mcr-1 Resistant Gene Not Applicable Normal NOT DETECTE D [facility] Comment on above: Performed By: #### B CID2 ####[facility] Owfmmuiyaa6040[address] [place], [place] [address]Dr. Erasmo Smith mecA/C Not Applicable Normal NOT DETECTED [facility] Comment on above: Performed By: #### B CID2 ####[facility] Kjbhwwsgat7[address] [place], [place] [address]Dr. Erasmo Smith mecA/C MREJ Not Applicable Normal NOT DETECTED [facility] Comment on above: Performed By: #### B CID2 ####[facility] Rpyimapebn0556[address] [place], [place] [address]Dr. Erasmo Smith N. meningitidis Not detected Normal NOT DETECTED [facility] Comment on above: Performed By: #### B CID2 ####[facility] Dlpolutejo7083[address] [place], [place] [address]Dr. Erasmo Smith NDM Resistant Gene Not Applicable Normal NOT DETECTED [facility] Comment on above: Performed By: #### B CID2 ####[facility] Qcskfysoij0570[address] [place], [place] [address]Dr. Erasmo Smith Oxa-48-like Not Applicable Normal NOT DETECTED [facility] Comment on above: Performed By: #### B CID2 ####[facility] Rclwjaxjzt[address] [place] [address]Dr. Erasmo Smith Proteus Not detected Normal NOT DETECTED [facility] Comment on above: Performed By: #### B CID2 ####[facility] Ihseonkptv[address] [place] [address]Dr. Erasmo Smith Pseud. aeruginosa Not detected Normal NOT DETECTED [facility] Comment on above: Performed By: #### B CID2 ####[facility] Kydesmvzqh1738[address] [place], [place] [address]Dr. Erasmo Smith S. maltophilia Not detected Normal NOT DETECTED [facility] Comment on above: Performed By: #### B CID2 ####[facility] Ednhbcktep7013[address] [place], [place] [address]Dr. Erasmo Smith Salmonella Not detected Normal NOT DETECTED [facility] Comment on above: Performed By: #### B CID2 ####[facility] Najkdanrxw9758[address] [place], [place] [address]Dr. Erasmo Smith Seratia marcescens Not detected Normal NOT DETECTED [facility] Comment on above: Performed By: #### B CID2 ####[facility] Xpsvrimlpk9968[address] [place], [place] [address]Dr. Erasmo Smith Site: l ac Normal [facility] Comment on above: Performed By: #### B CID2 ####[facility] [address]bdpwq4[address] [place] [address]Dr. Erasmo Smith Staph. aureus Not detected Normal NOT DETECTED [facility] Comment on above: Performed By: #### B CID2 ####[facility] Ulzoginqwp4943[address] [place], [place] [address]Dr. Erasmo Smith Staph. epidermidis Not detected Normal NOT DETECTED [facility] Comment on above: Performed By: #### B CID2 ####[facility] Qphzmwbmok4168[address] [place], [place] [address]Dr. Erasmo Smith Staph. lugdunensis Not detected Normal NOT DETECTED [facility] Comment on above: Performed By: #### B CID2 ####[facility] [address]iuhndhps[address] [place] [address]Dr. Erasmo Smith Staphylococcus Not detected Normal NOT DETECTED [facility] Comment on above: Performed By: #### B CID2 ####[facility] Vkzfkeqsug[address] [place] [address]Dr. Heavenean Luis Strep. agalactiae Not detected Normal NOT DETECTED [facility] Comment on above: Performed By: #### B CID2 ####[facility] Motkrflkuz[address] [place] [address]Dr. Erasmo Smith Strep. pneumoniae Not detected Normal NOT DETECTED [facility] Comment on above: Performed By: #### B CID2 ####[facility] Dxrcmdiqaa9[address] [place], [place] [address]Dr. Erasmo Smith Strep. pyogenes Not detected Normal NOT DETECTED [facility] Comment on above: Performed By: #### B CID2 ####[facility] Wjvwhazjhj[address] [place], [place] [address]Dr. Erasmo Luis Streptococcus Not detected Normal NOT DETECTED [facility] Comment on above: Performed By: #### B CID2 ####[facility] Zsuzbxnsfs[address] [place], [place] [address]Dr. Erasmo Smith Fran/B Resist. Gene Not detected Normal NOT DETECTED [facility] Comment on above: Performed By: #### B CID2 ####[facility] Yjtoopjeyj7040[address] [place], [place] [address]Dr. Erasmo Smith VIM Resistant Gene Not Applicable Normal NOT DETECTED [facility] Comment on above: Performed By: #### B CID2 ####[facility] Jbmjcmsnwa040[address] [place], [place] [address]Dr. Erasmo Smith BNPon 12-02-2022 Natriuretic peptide B (Bld) [Mass/Vol] 1059.0 pg/mL Normal <=1,800.0 [facility] Comment on above: Performed By: #### B DEPUTY CORONER #### [facility] [address] [address] [address] Erasmo Smith CBC AUTO DIFFon 12-02-2022 BASO # 0.0 103/ul Normal 0.0-0.1 [facility] Comment on above: Performed By: #### C BC ####[facility] Wfndlsnpum[address] [place] [address]DrMeena Smith Basophils/100 WBC (Bld) 0.2 % Normal 0.2-2.0 [facility] Comment on above: Performed By: #### C BC ####[facility] Uewznkofsr99[address] [place], [place] [address]DrMeena Smith EO # 0.0 103/ul Normal 0.0-0.7 [facility] Comment on above: Performed By: #### C BC ####[facility] Maxhooahiq24[address] [place], [place] [address]DrMeena Smith Eosinophils/100 WBC (Bld) 0.0 % Critically low 0.9-7.0 [facility] Comment on above: Performed By: #### C BC ####[facility] Gibtsnnagq[address] [place], [place] [address]DrMeena Smith Erythrocyte distribution width (RBC) [Ratio] 17.3 % Critically high 11.0-15.0 [facility] Comment on above: Performed By: #### C BC ####[facility] Rgxosstjvf[address] [place], [place] [address]DrMeena Smith Hematocrit (Bld) [Volume fraction] 31.4 % Critically low 36.0-48.0 [facility] Comment on above: Performed By: #### C BC ####[facility] Afeqekubbd[address] [place], [place] [address]Dr. Erasmo Smith Hemoglobin (Bld) [Mass/Vol] 10.0 g/dL Critically low 12.0-16.0 [facility] Comment on above: Performed By: #### C BC ####[facility] [address]xbbz[address] [place] [address]DrMeena Smith IG # 0.06 10e3/ul Critically high 0.00-0.03 [facility] Comment on above: Performed By: #### C BC ####[facility] Dcjghwkyqa26[address] [place] [address]Dr. Erasmo Smith IG % 0.4 % Normal 0.0-0.5 [facility] Comment on above: Performed By: #### C BC ####[facility] Orspdbjzmd59[address] [place] [address]Dr. Erasmo Smith LYMPH # 1.3 103/ul Normal 1.2-3.8 [facility] Comment on above: Performed By: #### C BC ####[facility] Mzsdiccdzj4512 [place] [address]Dr. Erasmo Luis Lymphocytes/100 WBC (Bld) 8.1 % Critically low 20.5-60.0 [facility] Comment on above: Performed By: #### C BC ####[facility] Zongascxpp[address] [place] [address]Dr. Erasmo Smith MANUAL DIFF REQ NO Normal [facility] Comment on above: Performed By: #### C BC ####[facility] Zpjwiedyly[address] [place] [address]Dr. Erasmo Smith MCH (RBC) [Entitic mass] 25.6 pg Critically low 26.7-34.0 [facility] Comment on above: Performed By: #### C BC ####[facility] Yyqljvaian[address] [place] [address]Dr. Erasmo Smith MCHC (RBC) [Mass/Vol] 31.8 g/dL Normal 29.9-35.2 [facility] Comment on above: Performed By: #### C BC ####[facility] Iwgmscugha[address] [place] [address]Dr. Erasmo Smith MCV (RBC) [Entitic vol] 80.3 fL Critically low 81.0-99.0 [facility] Comment on above: Performed By: #### C BC ####[facility] Bfzjvovtnz[address] [place] [address]Dr. Erasmo Luis MONO # 0.6 103/ul Normal 0.3-0.8 [facility] Comment on above: Performed By: #### C BC ####[facility] Qkknbrguqj56[address] [place] [address]Dr. Erasmo Smith Monocytes/100 WBC (Bld) 3.7 % Normal 1.7-12.0 [facility] Comment on above: Performed By: #### C BC ####[facility] Pnqjewsszx[address] [place] [address]Dr. Erasmo Smith NEUT # 14.5 103/ul Critically high 1.4-6.5 [facility] Comment on above: Performed By: #### C BC ####[facility] Ptxmvfjlzk79[address] [place] [address]Dr. Erasmo Smith Neutrophils/100 WBC (Bld) 87.6 % Critically high 43.0-75.0 [facility] Comment on above: Performed By: #### C BC ####[facility] Akyixwqfzs15[address] [place] [address]Dr. Erasmo Smith Platelet mean volume (Bld) [Entitic vol] 10.0 fL Normal 9.5-13.5 [facility] Comment on above: Performed By: #### C BC ####[facility] Jeqwwczjws40[address] [place] [address]Dr. Erasmo Smith PLT 206 103/ul Normal 150-450 [facility] Comment on above: Performed By: #### C BC ####[facility] Udetxldxyw5946 [place] [address]Dr. Erasmo Smith RBC 3.91 106/ul Critically low 4.20-5.40 [facility] Comment on above: Performed By: #### C BC ####[facility] Qlopltgtaw6937 [place] [address]Dr. Erasmo Smith WBC 16.5 103/ul Critically high 4.0-11.0 [facility] Comment on above: Performed By: #### C BC ####[facility] Iuttukmiei[address] [place] [phone]. Erasmo Smith ECHOCARDIO M/2D COMPLETEon 0 12-02-2022 ECHOCARDIO M/2D COMPLETE Patient: BREANN STARKS Exam Date: 12/02/2022 : 1945 Gender:F Ordering : KAYLEY HOLMAN . Admission #: [id number] Family : DR LUISANA FISHER . Order #: [id number] CLICK HERE TO VIEW EXAM ECHOCARDIOGRAM REPORT [...] Salazar M.D. on 12/02/2022 at 21:58 Normal [facility] MAGNESIUMon 12-02-2022 Magnesium [Mass/Vol] 2.0 mg/dL Normal 1.8-2.4 [facility] Comment on above: Performed By: #### B DEPUTY CORONER #### [facility] [address] [place] [address] Dr. Erasmo Smith PROF 14(COMP METB)on 023 Albumin [Mass/Vol] 2.7 g/dL Critically low 3.4-5.[address] [facility] Comment on above: Performed By: #### B DEPUTY CORONER #### [facility] [address] [place] [address] Dr. Erasmo Smith Albumin/Globulin [Mass ratio] 0.6 {ratio} Normal [facility] Comment on above: Performed By: #### B DEPUTY CORONER #### [facility] [address] [place] [address] Dr. Erasmo Smith ALP [Catalytic activity/Vol] 128 U/L Critically high 46-116 [facility] Comment on above: Performed By: #### B DEPUTY CORONER #### [facility] [address] [address] [address] Erasmo Smith ALT [Catalytic activity/Vol] 34 U/L Normal 14-59 [facility] Comment on above: Performed By: #### B DEPUTY CORONER #### [facility] [address] [address] [address] Erasmo Smith Anion gap [Moles/Vol] 10.6 mmol/L Normal [facility] Comment on above: Performed By: #### B DEPUTY CORONER #### [facility] [address] [address] [address] Erasmo Smith AST [Catalytic activity/Vol] 27 U/L Normal 15-37 [facility] Comment on above: Performed By: #### B DEPUTY CORONER #### [facility] [address] [place] [address] Dr. Erasmo Smith Bilirubin [Mass/Vol] 0.5 mg/dL Normal 0.2-1.0 [facility] Comment on above: Performed By: #### B DEPUTY CORONER #### [facility] [address] [place] [address] Dr. Erasmo Smith Calcium [Mass/Vol] 8.4 mg/dL Critically low 8.5-10.1 [facility] Comment on above: Performed By: #### B DEPUTY CORONER #### [facility] [address] [place] [address] Dr. Erasmo Smith Chloride [Moles/Vol] 104 mmol/L Normal 98-107 [facility] Comment on above: Performed By: #### B DEPUTY CORONER #### [facility] [address] [place] [address] Dr. Erasmo Smith CO2 [Moles/Vol] 26.2 mmol/L Normal 21.0-32.0 [facility] Comment on above: Performed By: #### B DEPUTY CORONER #### [facility] [address] [place] [address] Dr. Erasmo Smith Creatinine [Mass/Vol] 0.52 mg/dL Critically low 0.55-1.02 [facility] Comment on above: Performed By: #### B DEPUTY CORONER #### [facility] [address] [place] [address] Dr. Erasmo Smith EGFR-AF [place]IZ[place] >60 Normal >=60 [facility] Comment on above: Performed By: #### B DEPUTY CORONER #### [facility] [address] [place] [address] Dr. Erasmo Smith EGFR-NON AF [place] >60 Normal >=60 [facility] Comment on above: Performed By: #### B DEPUTY CORONER #### [facility] [address] [place] [address] Dr. Erasmo Smith Globulin (S) [Mass/Vol] 4.3 g/dL Normal [facility] Comment on above: Performed By: #### B DEPUTY CORONER #### [facility] [address] [place] [address] Dr. Erasmo Smith Glucose [Mass/Vol] 135 mg/dL Critically high 74-106 [facility] Comment on above: Performed By: #### B DEPUTY CORONER #### [facility] [address] [place] [address] Dr. Erasmo Smith Potassium [Moles/Vol] 3.8 mmol/L Normal 3.5-5.1 [facility] Comment on above: Performed By: #### B DEPUTY CORONER #### [facility] [address] [place] [address] Dr. Erasmo Smith Protein [Mass/Vol] 7.0 g/dL Normal 6.4-8.2 [facility] Comment on above: Performed By: #### B DEPUTY CORONER #### [facility] [address] [place] [address] Dr. Erasmo Smith Sodium [Moles/Vol] 137 mmol/L Normal 136-145 [facility] Comment on above: Performed By: #### B DEPUTY CORONER #### [facility] [address] [place] [address] Dr. Erasmo Smith Urea nitrogen [Mass/Vol] 16.0 mg/dL Normal 7.0-18.0 [facility] Comment on above: Performed By: #### B DEPUTY CORONER #### [facility] [address] [place] [address] Dr. Erasmo Smith Urea nitrogen/Creatinine [Mass ratio] 30.8 mg/mg Normal [facility] Comment on above: Performed By: #### B DEPUTY CORONER #### [facility] [address] [address] [address] Erasmo Smith PROTIMEon 12-02-2022 INR Coag (PPP) [Relative time] 4.39 {INR} Critically high [facility] Comment on above: Performed By: #### P T #### [facility] [address] [address] [address] Erasmo Smith INR GUIDELINES SEE BELOW Normal [facility] Comment on above: Result Comment: ABNER RED INR: 2.0 - 3.0 CONDITIONS NOT LISTED BELOW 2.5 - 3.5 FOR PROSTHETIC HEART VALVE REPLACEMENT 2.5 - 3.5 RECURRENT THROMBOSIS Performed By: #### P T #### [facility] [address] [address] [address] Erasmo Smith PT Coag (PPP) [Time] 42.8 s Critically high 9.0-11.6 [facility] Comment on above: Performed By: #### P T #### [facility] [address] [address] [address] Erasmo Smith UA RANDOM W/MICROSCOPICon BACTERIA NONE SEEN Normal NONE SEEN [facility] Comment on above: Performed By: #### U AMIC ####[facility] [address] [place] [address]DrMeena Smith Bilirubin Ql (U) Negative Normal NEGATIVE [facility] Comment on above: Performed By: #### U AMIC ####[facility] [address]ktrm[address] [place] [address]DrMeena Smith CAST NONE SEEN Normal NONE SEEN [facility] Comment on above: Performed By: #### U AMIC ####[facility] [address] [place], [place] [address]DrMeena Smith Clarity (U) CLEAR Normal CLEAR [facility] Comment on above: Performed By: #### U AMIC ####[facility] [address] [place] [address]DrMeena Smith Color (U) YELLOW Normal YELLOW [facility] Comment on above: Performed By: #### U AMIC ####[facility] [address]ymcd[address] [place] [address]Dr. Erasmo Smith Crystals LM Nom (Urine sed) NONE SEEN Normal NONE SEEN [facility] Comment on above: Performed By: #### U AMIC ####[facility] [address] [place] [id number]. Erasmo Smith Epithelial cells LM Ql (Urine sed) RARE Normal NONE SEEN /RARE [facility] Comment on above: Performed By: #### U AMIC ####[facility] [address] [place] [address]Dr. Erasmo Smith Glucose Ql (U) Negative Normal NEGATIVE [facility] Comment on above: Performed By: #### U AMIC ####[facility] [address] [place] [address]Dr. Erasmo Smith Hemoglobin Ql (U) SMALL Abnormal NEGATIVE [facility] Comment on above: Performed By: #### U AMIC ####[facility] [address] [place], [place] [address]Dr. Erasmo Smith Ketones Ql (U) 15 mg/dl Abnormal NEGATIVE [facility] Comment on above: Performed By: #### U AMIC ####[facility] [address] [place] [address]Dr. Erasmo Smith LEUKOCYTES Negative Normal NEGATIVE [facility] Comment on above: Performed By: #### U AMIC ####[facility] [address] [place] [address]Dr. Erasmo Smith MUCOUS NONE SEEN Normal NONE SEEN [facility] Comment on above: Performed By: #### U AMIC ####[facility] [address]cs[address] [place] [address]Dr. Erasmo Smith Nitrite Ql (U) Negative Normal NEGATIVE [facility] Comment on above: Performed By: #### U AMIC ####[facility] [address] [place] [address]Dr. Erasmo Smith pH (U) 6.0 [pH] Normal 5-9 [facility] Comment on above: Performed By: #### U AMIC ####[facility] [address] [place] [id number]. Erasmo Smith RBC 0-2 Normal 0-2 [facility] Comment on above: Performed By: #### U AMIC ####[facility] [address] [place] [id number]. Erasmo Smith SPEC GRAVITY 1.025 Normal 1.005-<=1.02 5 [facility] Comment on above: Performed By: #### U AMIC ####[facility] [address] [place] [id number]. Erasmo Smith UA PROTEIN TRACE Normal NEGATIVE/ TRACE [facility] Comment on above: Performed By: #### U AMIC ####[facility] [address] [place] [address]Dr. Erasmo Smith Urobilinogen Qn (U) 4 {Shraddha'U}/dL Abnormal 0.2 - 1.0 [facility] Comment on above: Performed By: #### U AMIC ####[facility] [address] [place] [id number]. Erasmo Smith WBC 0-2 Abnormal NONE SEEN [facility] Comment on above: Performed By: #### U AMIC ####[facility] [address]rf[address] [place] [id number]. Erasmo Smith CARDIAC ROSA ELENA 3-6on 3 CK [Catalytic activity/Vol] 53 U/L Normal 26-192 [facility] Comment on above: Performed By: #### C MREP #### [facility] [address] [address] [address] Erasmo Smith CK.MB [Mass/Vol] 0.90 ng/mL Normal <=3.60 [facility] Comment on above: Performed By: #### C MREP #### [facility] [address] [address] [address] Erasmo Smith HSTROP 116.7 pg/mL Critically high 4.0-51.3 [facility] Comment on above: Result Comment: CUT- OFF POINTS HAVE BEEN ESTABLISHED BASED ON THE FOURTH UNIVERSAL DEFINITIONS OF MYOCARDIAL INFARCTION. THE UPPER REFERENCE LIMIT (URL) OF TROPONIN, DEFINED THE 99TH PERCENTILE OF cTnI DISTRIBUTION IN A REFERENCE POPULATION, HAS BEEN CONFIRMED THE DECISION THRESHOLD FOR MO DIAGNOSIS. Performed By: #### C MREP #### [facility] [address] [place] [address] Dr. Erasmo Smith CK [Catalytic activity/Vol] 47 U/L Normal 26-192 [facility] Comment on above: Performed By: #### B DEPUTY CORONER #### [facility] [address] [place] [address] Dr. Erasmo Smith CK.MB [Mass/Vol] 1.00 ng/mL Normal <=3.60 [facility] Comment on above: Performed By: #### B DEPUTY CORONER #### [facility] [address] [place] [address] Dr. Erasmo Smith HSTROP 154.3 pg/mL Critically high 4.0-51.3 [facility] Comment on above: Result Comment: CUT- OFF POINTS HAVE BEEN ESTABLISHED BASED ON THE FOURTH UNIVERSAL DEFINITIONS OF MYOCARDIAL INFARCTION. THE UPPER REFERENCE LIMIT (URL) OF TROPONIN, DEFINED THE 99TH PERCENTILE OF cTnI DISTRIBUTION IN A REFERENCE POPULATION, HAS BEEN CONFIRMED THE DECISION THRESHOLD FOR MO DIAGNOSIS. Performed By: #### B DEPUTY CORONER #### [facility] [address] [place] [address] Dr. Erasmo Smith CBC W MANUAL DIFFon 12-02-19 23 ATYPICAL LYMPH # Normal [facility] Comment on above: Performed By: #### C ANGELA #### [facility] [address] [place] [address] Dr. Erasmo Smith ATYPICAL LYMPH % Normal [facility] Comment on above: Performed By: #### C ANGELA #### [facility] [address] [place] [address] Dr. Erasmo Smith BAND # 0.6 103/ul Critically high 0.0-0.3 [facility] Comment on above: Performed By: #### C ANGELA #### [facility] [address] [place] [address] Dr. Erasmo Smith BAND % 3 % Normal 0-5 [facility] Comment on above: Performed By: #### C BCBLAISE #### [facility] [address] [address] [address] Erasmo Smith BASOM # 0.00 103/ul Normal 0.00-0.10 [facility] Comment on above: Performed By: #### C BCBLAISE #### [facility] [address] [place] [address] Dr. Erasmo Smith BASOM % 0.0 % Critically low 0.2-2.0 [facility] Comment on above: Performed By: #### C BCBLAISE #### [facility] [address] [place] [address] Dr. Erasmo Smith BLAST # Normal [facility] Comment on above: Performed By: #### C ANGELA #### [facility] [address] [place] [address] Dr. Erasmo Smith BLAST % Normal [facility] Comment on above: Performed By: #### C ANGELA #### [facility] [address] [place] [address] Dr. Erasmo Smith CORRECTED WBC Normal 4.0-11.0 [facility] Comment on above: Performed By: #### C ANGELA #### [facility] [address] [place] [address] Dr. Erasmo Smith EOS # 0.19 103/ul Normal 0.00-0.70 [facility] Comment on above: Performed By: #### C ANGELA #### [facility] [address] [place] [address] Dr. Erasmo Smith EOS% 1.0 % Normal 0.9-7.0 [facility] Comment on above: Performed By: #### C BCBLAISE #### [facility] [address] [place] [address] Dr. Erasmo Smith HCT 32.7 % Critically low 36.0-48.0 [facility] Comment on above: Performed By: #### C ANGELA #### [facility] [address] [place] [address] Dr. Erasmo Smith HGB 10.5 g/dl Critically low 12.0-16.0 [facility] Comment on above: Performed By: #### C BCBLAISE #### [facility] [address] [address] [address] Erasmo Smith LYMPHM # 0.76 103/ul Critically low 1.20-3.80 [facility] Comment on above: Performed By: #### C BCBLAISE #### [facility] [address] [place] [address] [address] Erasmo Smith LYMPHM% 4.0 % Critically low 20.5-60.0 [facility] Comment on above: Performed By: #### C BCBLAISE #### [facility] [address] [address] [address] Erasmo Smith MCH 25.9 pg Critically low 26.7-34.0 [facility] Comment on above: Performed By: #### C ANGELA #### [facility] [address] [address] [address] Erasmo Smith MCHC 32.1 g/dl Normal 29.9-35.2 [facility] Comment on above: Performed By: #### C ANGELA #### [facility] [address] [address] [address] Erasmo Smith MCV 80.5 fL Critically low 81.0-99.0 [facility] Comment on above: Performed By: #### C ANGELA #### [facility] [address] [place] [address] [address] Erasmo Smith METAMYELOCYTE # Normal [facility] Comment on above: Performed By: #### C BCBLAISE #### [facility] [address] [address] [address] Erasmo Smith METAMYELOCYTE % Normal [facility] Comment on above: Performed By: #### C BCBLAISE #### [facility] [address] [address] [address] Erasmo Smith MONOM# 1.14 103/ul Critically high 0.30-0.80 [facility] Comment on above: Performed By: #### C BCBLAISE #### [facility] [address] [address] [address] Erasmo Smith MONOM% 6.0 % Normal 1.7-12.0 [facility] Comment on above: Performed By: #### C ANGELA #### [facility] [address] [address] [address] Erasmo Smith MPV 9.4 fL Critically low 9.5-13.5 [facility] Comment on above: Performed By: #### C ANGELA #### [facility] [address] [address] [address] Erasmo Smith MYELOCYTE # Normal [facility] Comment on above: Performed By: #### C ANGELA #### [facility] [address] [place] [address] Dr. Erasmo Smith MYELOCYTE % Normal [facility] Comment on above: Performed By: #### C ANGELA #### [facility] [address] [place] [address] Dr. Erasmo Smith NRBC Normal [facility] Comment on above: Performed By: #### C ANGELA #### [facility] [address] [place] [address] Dr. Erasmo Smith PLT 195 103/ul Normal 150-450 [facility] Comment on above: Performed By: #### C ANGELA #### [facility] [address] [place] [address] Dr. Erasmo Smith RBC 4.06 106/ul Critically low 4.20-5.40 [facility] Comment on above: Performed By: #### C ANGELA #### [facility] [address] [place] [address] Dr. Erasmo Smith RDW 17.7 % Critically high 11.0-15.0 [facility] Comment on above: Performed By: #### C ANGELA #### [facility] [address] [place] [address] Dr. Erasmo Smith SEG # 16.34 103/ul Critically high 1.40-6.50 [facility] Comment on above: Performed By: #### C ANGELA #### [facility] [address] [place] [address] Dr. Erasmo Smith SEG % 86.0 % Critically high 43.0-75.0 [facility] Comment on above: Performed By: #### Yamile MILLER #### [facility] [address] [place], [place] [address] Dr. Erasmo Smith WBC 19.0 103/ul Critically high 4.0-11.0 [facility] Comment on above: Performed By: #### Yamile MILLER #### [facility] [address] [place], [place] [address] HEAD WO CONon [...] SALOME MCCORMICK Date: 2022 14:50 Normal [facility] CULTURE BLOODon 2022 Microscopic examination of blood, culture Culture Observations: Aerobic and Anaerobic bottle positive. BCID: E. Coli Culture Observations: Refer to for VIOLET. Isolate 1 Escherichia coli Growth of Normal [facility] Comment on above: Performed By: #### B LDCX2 ####[facility] [address] [place], [place] [address]Dr. Erasmo mSith [facility]id-19 PCR [facility]on [facility]11 SARS-CoV-2 (COVID-19) RNA EMILY+probe Ql (Unsp spec) Not detected Normal NOT DETECTED [facility] Comment on above: Result Comment: When [...] for this test is supported by the [employer] of [employer] and Human Service's declaration that [...] used). Performed By: #### C MREP #### [facility] [address] [place] [address] [address] Erasmo Smith LACTATE/LACTIC ACIDon 2022 Lactate [Moles/Vol] 1.2 mmol/L Normal 0.4-2.0 [facility] Comment on above: Performed By: #### L ACT ####[facility] [address] [place] [address]Dr. Erasmo Smith PH VENOUS BLOODon 2022 PCO2 VENOUS 37.8 mmHg Critically low 40.0-52.0 [facility] Comment on above: Performed By: #### P HVEN ####[facility] [address] [place] [id number]. Erasmo Smith pH VENOUS 7.417 Normal 7.330-7.430 [facility] Comment on above: Performed By: #### P HVEN ####[facility] [address] [place] [id number]. Erasmo Smith PROF 14(COMP METB)on 023 Albumin [Mass/Vol] 3.1 g/dL Critically low 3.4-5.0 [facility] Comment on above: Performed By: #### H STROPN, CMP ####[facility] [address] [place] [address]Dr. Earsmo Smith Albumin/Globulin [Mass ratio] 0.8 {ratio} Normal [facility] Comment on above: Performed By: #### H STROPN, CMP ####[facility] [address] [place] [address]Dr. Erasmo Smith ALP [Catalytic activity/Vol] 194 U/L Critically high 46-116 [facility] Comment on above: Performed By: #### H STROPN, CMP ####[facility] [address] [place] [address]Dr. Erasmo Smith ALT [Catalytic activity/Vol] 37 U/L Normal 14-59 [facility] Comment on above: Performed By: #### H STROPN, CMP ####[facility] [address] [place] [address]Dr. Erasmo Luis Anion gap [Moles/Vol] 14.6 mmol/L Normal Th e [facility] Comment on above: Performed By: #### H STROPN, CMP ####[facility] [address] [place], [place] [address]Dr. Erasmo Luis AST [Catalytic activity/Vol] 32 U/L Normal 15-37 [facility] Comment on above: Performed By: #### H STROPN, CMP ####[facility] [address] [place], [place] [address]Dr. Erasmo Smith Bilirubin [Mass/Vol] 1.0 mg/dL Normal 0.2-1.0 [facility] Comment on above: Performed By: #### H STROPN, CMP ####[facility] [address] [place], [place] [address]Dr. Erasmo Luis Calcium [Mass/Vol] 8.9 mg/dL Normal 8.5-10.1 [facility] Comment on above: Performed By: #### H STROPN, CMP ####[facility] [address] [place] [address]Dr. Erasmo Luis Chloride [Moles/Vol] 103 mmol/L Normal 98-107 [facility] Comment on above: Performed By: #### H STROPN, CMP ####[facility] [address] [place] [address]Dr. Erasmo Smith CO2 [Moles/Vol] 23.6 mmol/L Normal 21.0-32.0 [facility] Comment on above: Performed By: #### H STROPN, CMP ####[facility] [address] [place] [address]Dr. Erasmo Smith Creatinine [Mass/Vol] 0.69 mg/dL Normal 0.55-1.02 [facility] Comment on above: Performed By: #### H STROPN, CMP ####[facility] [address] [place] [id number]. Erasmo Smith EGFR-AF [place] >60 Normal >=60 [facility] Comment on above: Performed By: #### H STROPN, CMP ####[facility] [address] [place] [address]Dr. Erasmo Smith EGFR-NON AF [place]IZ[place] >60 Normal >=60 [facility] Comment on above: Performed By: #### H STROPN, CMP ####[facility] [address] [place] [address]Dr. Erasmo Smith Globulin (S) [Mass/Vol] 4.1 g/dL Normal [facility] Comment on above: Performed By: #### H STROPN, CMP ####[facility] [address] [place] [address]Dr. Erasmo Smith Glucose [Mass/Vol] 121 mg/dL Critically high 74-106 [facility] Comment on above: Performed By: #### H STROPN, CMP ####[facility] [address] [place] [address]Dr. Erasmo Smith Potassium [Moles/Vol] 3.2 mmol/L Critically low 3.5-5.1 [facility] Comment on above: Performed By: #### H STROPN, CMP ####[facility] [address] [place] [address]Dr. Erasmo Smith Protein [Mass/Vol] 7.2 g/dL Normal 6.4-8.2 [facility] Comment on above: Performed By: #### H STROPN, CMP ####[facility] [address] [place] [address]Dr. Erasmo Smith Sodium [Moles/Vol] 138 mmol/L Normal 136-145 [facility] Comment on above: Performed By: #### H ALEXSANDER, CMP ####[facility] [address] [place] [address]Dr. Erasmo Smith Urea nitrogen [Mass/Vol] 17.0 mg/dL Normal 7.0-18.0 [facility] Comment on above: Performed By: #### H ALEXSANDER, CMP ####[facility] [address] [place] [id number]. Erasmo Smith Urea nitrogen/Creatinine [Mass ratio] 24.6 mg/mg Normal [facility] Comment on above: Performed By: #### H ALEXSANDER, CMP ####[facility] [address] [place] [address]Dr. Erasmo Smith PROTIMEon 2022 INR Coag (PPP) [Relative time] 3.58 {INR} Normal [facility] Comment on above: Performed By: #### P T, PTT #### [facility] [address] [place] [address] Dr. Erasmo Smith INR GUIDELINES SEE BELOW Normal [facility] [place] [facility] Comment on above: Result Comment: ABNER RED INR: 2.0 - 3.0 CONDITIONS NOT LISTED BELOW 2.5 - 3.5 FOR PROSTHETIC HEART VALVE REPLACEMENT 2.5 - 3.5 RECURRENT THROMBOSIS Performed By: #### P T, PTT #### [facility] [address] [place] [address] [address] Erasmo Smith PT Coag (PPP) [Time] 35.3 s Critically high 9.0-11.6 [facility] Comment on above: Performed By: #### P T, PTT #### [facility] [address] [place] [address] [address] Erasmo Smith PTTon 2022 aPTT Coag (Bld) [Time] 40.3 s Critically high 22.3-36. 2 [facility] Comment on above: Performed By: #### P T, PTT #### [facility] [address] [place] [address] Dr. Erasmo Smith TROPONIN, HIGH SENSITIVITYon 2022 HSTROP 194.7 pg/mL Critically high 4.0-51.3 [facility] Comment on above: Result Comment: CUT- OFF POINTS HAVE BEEN ESTABLISHED BASED ON THE FOURTH UNIVERSAL DEFINITIONS OF MYOCARDIAL INFARCTION. THE UPPER REFERENCE LIMIT (URL) OF TROPONIN, DEFINED THE 99TH PERCENTILE OF cTnI DISTRIBUTION IN A REFERENCE POPULATION, HAS BEEN CONFIRMED THE DECISION THRESHOLD FOR MO DIAGNOSIS. Performed By: #### C MREP #### [facility] [address] [address] [address] Erasmo Smith HSTROP 218.0 pg/mL Critically high 4.0-51.3 [facility] Comment on above: Result Comment: CUT- OFF POINTS HAVE BEEN ESTABLISHED BASED ON THE FOURTH UNIVERSAL DEFINITIONS OF MYOCARDIAL INFARCTION. THE UPPER REFERENCE LIMIT (URL) OF TROPONIN, DEFINED THE 99TH PERCENTILE OF cTnI DISTRIBUTION IN A REFERENCE POPULATION, HAS BEEN CONFIRMED THE DECISION THRESHOLD FOR MO DIAGNOSIS. Performed By: #### B DEPUTY CORONER #### [facility] [address] [address] [address] Erasmo Smith XR CHEST 1 Von [...] by: HONG ALSTON Date: 2022 14:18 Normal [facility] Lab Reportson 11-30-2022 Lab Reports [id number]:[id number] Normal [facility] MG MAMM SCREEN 3D TOÑITO CADon 11-26-2022 MG MAMM SCREEN 3D TOÑITO CAD Patient: BREANN STARKS Exam Date: 11/26/2022 : 1945 Gender:F Ordering : DR LUISANA FISHER . Admission #: [id number] Family : Order #: [id number] CLICK HERE TO VIEW EXAM RADIOLOGY REPORT [...] No Treatments None Family Cancers None LOCATION: [facility] BREAST COMPOSITION: Heterogeneously dense,which may obscure [...] Delgado M.D. on 11/26/2022 at 14:13 Normal [facility] PROF 14(COMP METB)on 022 Albumin [Mass/Vol] 3.8 g/dL Normal 3.4-5.0 [facility] Comment on above: Performed By: #### C MREP #### [facility] [address] [place] [address] [address] Erasmo Smith Albumin/Globulin [Mass ratio] 0.8 {ratio} Normal [facility] Comment on above: Performed By: #### C MREP #### [facility] [address] [place] [address] [address] Erasmo Smith ALP [Catalytic activity/Vol] 102 U/L Normal 46-116 [facility] Comment on above: Performed By: #### C MREP #### [facility] [address] [place] [address] [address] Erasmo Smith ALT [Catalytic activity/Vol] 47 U/L Normal 14-59 [facility] Comment on above: Performed By: #### C MREP #### [facility] [address] [place] [address] [address] Erasmo Smith Anion gap [Moles/Vol] 12.5 mmol/L Normal [facility] Comment on above: Performed By: #### C MREP #### [facility] [address] [place] [address] [address] Erasmo Smith AST [Catalytic activity/Vol] 36 U/L Normal 15-37 [facility] Comment on above: Performed By: #### C MREP #### [facility] [address] [place] [address] [address] Erasmo Smith Bilirubin [Mass/Vol] 0.3 mg/dL Normal 0.2-1.0 [facility] Comment on above: Performed By: #### C MREP #### [facility] [address] [place] [address] Dr. Erasmo Smith Calcium [Mass/Vol] 8.9 mg/dL Normal 8.5-10.1 [facility] Comment on above: Performed By: #### C MREP #### [facility] [address] [place] [address] [address] Erasmo Smith Chloride [Moles/Vol] 106 mmol/L Normal 98-107 [facility] Comment on above: Performed By: #### C MREP #### [facility] [address] [place] [address] Dr. Erasmo Smith CO2 [Moles/Vol] 26.9 mmol/L Normal 21.0-32.0 [facility] Comment on above: Performed By: #### C MREP #### [facility] [address] [place] [address] Dr. Erasmo Smith Creatinine [Mass/Vol] 0.79 mg/dL Normal 0.55-1.02 [facility] Comment on above: Performed By: #### C MREP #### [facility] [address] [place] [address] [address] Erasmo Smith EGFR-AF [place] CITIZEN >60 Normal >=60 [facility] Comment on above: Performed By: #### C MREP #### [facility] [address] [address] [address] Erasmo Smith EGFR-NON AF [place] CITIZEN >60 Normal >=60 [facility] Comment on above: Performed By: #### C MREP #### [facility] [address] [address] [address] Erasmo Smith Globulin (S) [Mass/Vol] 4.6 g/dL Normal [facility] Comment on above: Performed By: #### C MREP #### [facility] [address] [address] [address] Erasmo Smith Glucose [Mass/Vol] 102 mg/dL Normal 74-106 [facility] Comment on above: Performed By: #### C MREP #### [facility] [address] [place] [address] Dr. Erasmo Smith Potassium [Moles/Vol] 4.4 mmol/L Normal 3.5-5.1 [facility] Comment on above: Performed By: #### C MREP #### [facility] [address] [place] [address] Dr. Erasmo Smith Protein [Mass/Vol] 8.4 g/dL Critically high 6.4-8.2 [facility] Comment on above: Performed By: #### C MREP #### [facility] [address] [place] [address] Dr. Erasmo Smith Sodium [Moles/Vol] 141 mmol/L Normal 136-145 [facility] Comment on above: Performed By: #### C MREP #### [facility] [address] [place] [address] Dr. Erasmo Smith Urea nitrogen [Mass/Vol] 28.0 mg/dL Critically high 7.0-18.0 [facility] Comment on above: Performed By: #### C MREP #### [facility] [address] [place] [address] Dr. Erasmo Smith Urea nitrogen/Creatinine [Mass ratio] 35.4 mg/mg Normal [facility] Comment on above: Performed By: #### C MREP #### [facility] [address] [place] [address] Dr. Erasmo Smith CBC AUTO DIFFon 07-12-2022 BASO # 0.1 103/ul Normal 0.0-0.1 [facility] Comment on above: Performed By: #### B DEPUTY CORONER #### [facility] [address] [place] [address] Dr. Erasmo Smith Basophils/100 WBC (Bld) 0.5 % Normal 0.2-2.0 [facility] Comment on above: Performed By: #### B DEPUTY CORONER #### [facility] [address] [place] [address] Dr. Erasmo Smith EO # 0.2 103/ul Normal 0.0-0.7 [facility] Comment on above: Performed By: #### B DEPUTY CORONER #### [facility] [address] [place] [address] Dr. Erasmo Smith Eosinophils/100 WBC (Bld) 2.5 % Normal 0.9-7.0 [facility] Comment on above: Performed By: #### B DEPUTY CORONER #### [facility] [address] [place] [address] Dr. Erasmo Smith Erythrocyte distribution width (RBC) [Ratio] 17.2 % Critically high 11.0-15.0 [facility] Comment on above: Performed By: #### B DEPUTY CORONER #### [facility] [address] [place] [address] Dr. Erasmo Smith Hematocrit (Bld) [Volume fraction] 35.0 % Critically low 36.0-48.0 [facility] Comment on above: Performed By: #### B DEPUTY CORONER #### [facility] [address] [place] [address] Dr. Erasmo Smith Hemoglobin (Bld) [Mass/Vol] 11.3 g/dL Critically low 12.0-16.0 [facility] Comment on above: Performed By: #### B DEPUTY CORONER #### [facility] [address] [place] [address] Dr. Erasmo Smith IG # 0.02 10e3/ul Normal 0.00-0.03 [facility] Comment on above: Performed By: #### B DEPUTY CORONER #### [facility] [address] [place] [address] Dr. Erasmo Smith IG % 0.2 % Normal 0.0-0.5 [facility] Comment on above: Performed By: #### B DEPUTY CORONER #### [facility] [address] [place] [address] Dr. Erasmo Smith LYMPH # 2.3 103/ul Normal 1.2-3.8 [facility] Comment on above: Performed By: #### B DEPUTY CORONER #### [facility] [address] [place] [address] Dr. Erasmo Smith Lymphocytes/100 WBC (Bld) 25.4 % Normal 20.5-60.0 [facility] Comment on above: Performed By: #### B DEPUTY CORONER #### [facility] [address] [place] [address] Dr. Erasmo Smith MANUAL DIFF REQ NO Normal [facility] Comment on above: Performed By: #### B DEPUTY CORONER #### [facility] [address] [place] [address] Dr. Erasmo Smith MCH (RBC) [Entitic mass] 25.5 pg Critically low 26.7-34.0 [facility] Comment on above: Performed By: #### B DEPUTY CORONER #### [facility] [address] [place] [address] Dr. Erasmo Smith MCHC (RBC) [Mass/Vol] 32.3 g/dL Normal 29.9-35.2 [facility] Comment on above: Performed By: #### B DEPUTY CORONER #### [facility] [address] [place] [address] Dr. Erasmo Smith MCV (RBC) [Entitic vol] 78.8 fL Critically low 81.0-99.0 [facility] Comment on above: Performed By: #### B DEPUTY CORONER #### [facility] [address] [place] [address] Dr. Erasmo Smith MONO # 0.7 103/ul Normal 0.3-0.8 [facility] Comment on above: Performed By: #### B DEPUTY CORONER #### [facility] [address] [place] [address] Dr. Erasmo Smith Monocytes/100 WBC (Bld) 7.5 % Normal 1.7-12.0 [facility] Comment on above: Performed By: #### B DEPUTY CORONER #### [facility] [address] [place] [address] Dr. Erasmo Smith NEUT # 5.9 103/ul Normal 1.4-6.5 [facility] Comment on above: Performed By: #### B DEPUTY CORONER #### [facility] [address] [place] [address] Dr. Erasmo Smith Neutrophils/100 WBC (Bld) 63.9 % Normal 43.0-75.0 [facility] Comment on above: Performed By: #### B DEPUTY CORONER #### [facility] [address] [place] [address] Dr. Erasmo Smith Platelet mean volume (Bld) [Entitic vol] 9.0 fL Critically low 9.5-13.5 [facility] Comment on above: Performed By: #### B DEPUTY CORONER #### [facility] [address] [place] [address] Dr. Erasmo Smith PLT 305 103/ul Normal 150-450 [facility] Comment on above: Performed By: #### B DEPUTY CORONER #### [facility] [address] [place] [address] Dr. Erasmo Smith RBC 4.44 106/ul Normal 4.20-5.40 [facility] Comment on above: Performed By: #### B DEPUTY CORONER #### [facility] [address] [place] [address] Dr. Erasmo Smith WBC 9.2 103/ul Normal 4.0-11.0 [facility] Comment on above: Performed By: #### B DEPUTY CORONER #### [facility] [address] [place] [address] CHEST WO CONon [...] by: PAULA DELGADO Date: 2022-05-27 15:27 Normal [facility] HEMOGLOBINon 04-20-2022 Hemoglobin (Bld) [Mass/Vol] 10.6 g/dL Critically low 12.0-16.0 [facility] Comment on above: Performed By: #### H GB ####[facility] [address] [place], [place] [address]XcDr. Erasmo Smith CULTURE SPUTUMon 04-02-2022 CULTURE SPUTUM Isolate 1 Pseudomonas aeruginosa Light growth of ORGANISM 1 Pseudomonas aeruginosa ANTIBIOTIC M.I.C RX STATUS Piperacillin/Tazobac saez 8 S F Ceftazidime 2 S F Imipenem 1 S F Amikacin <=2 S F Gentamicin <=1 S F Tobramycin <=1 S F Ciprofloxacin <=0.25 S F Levofloxacin 0.25 S F Normal [facility] Comment on above: Performed By: #### S PUTCX ####[facility] [address] [place], [place] [address]BtDr. Erasmo Smith CYTOLOGYon 03-30-2022 SENT TO REF LAB 03/31/22 Normal [facility] Comment on above: Performed By: #### C YTO #### [facility] [address] [place], [place] [address] Dr. Erasmo Smith SPUTUM GRAM STAINon 03-30-20 22 COMMENTS Normal [facility] Comment on above: Performed By: #### B DEPUTY CORONER #### [facility] [address] [address] [address] Erasmo Smith DIPHTHEROIDS Normal [facility] Comment on above: Performed By: #### B DEPUTY CORONER #### [facility] [address] [address] [address] Erasmo Smith EPITHELIALS <25 Normal [facility] Comment on above: Performed By: #### B DEPUTY CORONER #### [facility] [address] [address] [address] Erasmo Smith FUNGAL ELEMENTS Normal [facility] Comment on above: Performed By: #### B DEPUTY CORONER #### [facility] [address] [address] [address] Erasmo Smith GRAM NEG BACILLI FEW [facility] Comment on above: Performed By: #### B DEPUTY CORONER #### [facility] [address] [address] [address] Erasmo Smith GRAM NEG DIPPLOCOCCI Normal [facility] Comment on above: Performed By: #### B DEPUTY CORONER #### [facility] [address] [address] [address] Erasmo Smith GRAM POS BACILLI Normal [facility] Comment on above: Performed By: #### B DEPUTY CORONER #### [facility] [address] [address] [address] Erasmo Smith GRAM POSITIVE COCCI MANY Normal [facility] Comment on above: Performed By: #### B DEPUTY CORONER #### [facility] [address] [address] [address] Erasmo Smith WBC (Bld) [#/Vol] 10*3/uL Normal [facility] Comment on above: Performed By: #### B DEPUTY CORONER #### [facility] [address] [address] [address] Erasmo Smith SPUTUM CULTUREon 03-01-2022 Epithelial cells LM Ql (Urine sed) Few Normal [facility] Comment on above: Performed By: #### C XSPTUM ####[facility] [address] [address]Dr. Erasmo Smith Gram Stain Evaluation Comment Normal [facility] Comment on above: Result Comment: This specimen is of good quality and is acceptable for routine bacterial culture. Performed By: #### C XSPTUM ####[facility] [address] [address]Dr. Erasmo Smith Lower Respiratory Culture Final report Normal [facility] Comment on above: Performed By: #### C XSPTUM ####[facility] [address] [address]Dr. Erasmo Smith Result 1 Comment Normal [facility] Comment on above: Result Comment: Few gram positive cocci Performed By: #### C XSPTUM ####[facility] [address] [address]Dr. Erasmo Smith Result Comment: Rout ine respiratory adria Result 2 Normal [facility] Comment on above: Performed By: #### C XSPTUM ####[facility] [address] [address]Dr. Erasmo Smith Result 3 Normal [facility] Comment on above: Performed By: #### C XSPTUM ####[facility] [address] [address]Dr. Erasmo Smith Result 4 Normal [facility] Comment on above: Performed By: #### C XSPTUM ####[facility] [address] [place], [place] [address]Dr. Erasmo Smith White Blood Cells Few Normal [facility] Comment on above: Performed By: #### C XSPTUM ####[facility] [address] [address]DrMeena Smith BNPon 02-24-2022 Natriuretic peptide B (Bld) [Mass/Vol] 319.0 pg/mL Normal <=900.0 [facility] Comment on above: Performed By: #### B DEPUTY CORONER #### [facility] [address] [address] [address] Erasmo Smith CBC AUTO DIFFon 02-24-2022 BASO # 0.1 103/ul Normal 0.0-0.1 [facility] Comment on above: Performed By: #### C MREP #### [facility] [address] [place] [address] Dr. Erasmo Smith Basophils/100 WBC (Bld) 0.5 % Normal 0.2-2.0 [facility] Comment on above: Performed By: #### C MREP #### [facility] [address] [place] [address] Dr. Erasmo Smith EO # 0.3 103/ul Normal 0.0-0.7 [facility] Comment on above: Performed By: #### C MREP #### [facility] [address] [place] [address] Dr. Erasmo Smith Eosinophils/100 WBC (Bld) 3.1 % Normal 0.9-7.0 [facility] Comment on above: Performed By: #### C MREP #### [facility] [address] [place] [address] Dr. Erasmo Smith Erythrocyte distribution width (RBC) [Ratio] 15.1 % Critically high 11.0-15.0 [facility] Comment on above: Performed By: #### C MREP #### [facility] [address] [place] [address] Dr. Erasmo Smith Hematocrit (Bld) [Volume fraction] 33.9 % Critically low 36.0-48.0 [facility] Comment on above: Performed By: #### C MREP #### [facility] [address] [place] [address] Dr. Erasmo Smith Hemoglobin (Bld) [Mass/Vol] 10.7 g/dL Critically low 12.0-16.0 [facility] Comment on above: Performed By: #### C MREP #### [facility] [address] [place] [address] Dr. Erasmo Smith IG # 0.03 10e3/ul Normal 0.00-0.03 [facility] Comment on above: Performed By: #### C MREP #### [facility] [address] [place] [address] Dr. Erasmo Smith IG % 0.3 % Normal 0.0-0.5 [facility] Comment on above: Performed By: #### C MREP #### [facility] [address] [address] [address] Erasmo Smith LYMPH # 2.8 103/ul Normal 1.2-3.8 [facility] Comment on above: Performed By: #### C MREP #### [facility] [address] [address] [address] Erasmo Smith Lymphocytes/100 WBC (Bld) 30.6 % Normal 20.5-60.0 [facility] Comment on above: Performed By: #### C MREP #### [facility] [address] [place] [address] Dr. Erasmo Smith MANUAL DIFF REQ NO Normal [facility] Comment on above: Performed By: #### C MREP #### [facility] [address] [place] [address] Dr. Erasmo Smith MCH (RBC) [Entitic mass] 26.9 pg Normal 26.7-34.0 [facility] Comment on above: Performed By: #### C MREP #### [facility] [address] [place] [address] Dr. Erasmo Smith MCHC (RBC) [Mass/Vol] 31.6 g/dL Normal 29.9-35.2 [facility] Comment on above: Performed By: #### C MREP #### [facility] [address] [place] [address] Dr. Erasmo Smith MCV (RBC) [Entitic vol] 85.2 fL Normal 81.0-99.0 [facility] Comment on above: Performed By: #### C MREP #### [facility] [address] [place] [address] Dr. Erasmo Smith MONO # 0.7 103/ul Normal 0.3-0.8 [facility] Comment on above: Performed By: #### C MREP #### [facility] [address] [place] [address] Dr. rEasmo Smith Monocytes/100 WBC (Bld) 7.9 % Normal 1.7-12.0 [facility] Comment on above: Performed By: #### C MREP #### [facility] [address] [place] [address] Dr. Erasmo Smith NEUT # 5.3 103/ul Normal 1.4-6.5 [facility] Comment on above: Performed By: #### C MREP #### [facility] [address] [address] [address] Erasmo Smith Neutrophils/100 WBC (Bld) 57.6 % Normal 43.0-75.0 [facility] Comment on above: Performed By: #### C MREP #### [facility] [address] [address] [address] Erasmo Smith Platelet mean volume (Bld) [Entitic vol] 9.0 fL Critically low 9.5-13.5 [facility] Comment on above: Performed By: #### C MREP #### [facility] [address] [place] [address] Dr. Erasmo Smith PLT 249 103/ul Normal 150-450 [facility] Comment on above: Performed By: #### C MREP #### [facility] [address] [place] [address] Dr. Erasmo Smith RBC 3.98 106/ul Critically low 4.20-5.40 [facility] Comment on above: Performed By: #### C MREP #### [facility] [address] [place] [address] Dr. Erasmo Smith WBC 9.1 103/ul Normal 4.0-11.0 [facility] Comment on above: Performed By: #### C MREP #### [facility] [address] [place] [address] Dr. Erasmo Smith CTA CHEST WO W [...] PAULA DELGADO Date: 2022-02-24 18:24 Normal [facility] D-DIMERon 02-24-2022 D-DIMER 1.36 mg/L FEU Critically high <=0.59 [facility] Comment on above: Performed By: #### D DIM #### [facility] [address] [address] [address] Erasmo Smith D-DIMER COMMENTS SEE BELOW Normal [facility] Comment on above: Result Comment: Incr [...] hospitalization. Performed By: #### D DIM #### [facility] [address] [address] [address] Erasmo Smith PROF 14(COMP METB)on 022 Albumin [Mass/Vol] 3.6 g/dL Normal 3.4-5.0 [facility] Comment on above: Performed By: #### C MREP #### [facility] [address] [place] [address] Dr. Erasmo Smith Albumin/Globulin [Mass ratio] 0.8 {ratio} Normal [facility] Comment on above: Performed By: #### C MREP #### [facility] [address] [address] [address] Erasmo Smith ALP [Catalytic activity/Vol] 95 U/L Normal 46-116 [facility] Comment on above: Performed By: #### C MREP #### [facility] [address] [place] [address] Dr. Erasmo Smith ALT [Catalytic activity/Vol] 45 U/L Normal 14-59 [facility] Comment on above: Performed By: #### C MREP #### [facility] [address] [place] [address] Dr. Erasmo Smith Anion gap [Moles/Vol] 15.9 mmol/L Normal [facility] Comment on above: Performed By: #### C MREP #### [facility] [address] [place] [address] Dr. Erasmo Smith AST [Catalytic activity/Vol] 33 U/L Normal 15-37 [facility] Comment on above: Performed By: #### C MREP #### [facility] [address] [place] [address] Dr. Erasmo Smith Bilirubin [Mass/Vol] 0.5 mg/dL Normal 0.2-1.0 [facility] Comment on above: Performed By: #### C MREP #### [facility] [address] [place] [address] Dr. Erasmo Smith Calcium [Mass/Vol] 9.1 mg/dL Normal 8.5-10.1 [facility] Comment on above: Performed By: #### C MREP #### [facility] [address] [place] [address] Dr. Erasmo Smith Chloride [Moles/Vol] 103 mmol/L Normal 98-107 [facility] Comment on above: Performed By: #### C MREP #### [facility] [address] [place] [address] Dr. Erasmo Smith CO2 [Moles/Vol] 25.1 mmol/L Normal 21.0-32.0 [facility] Comment on above: Performed By: #### C MREP #### [facility] [address] [place] [address] Dr. Erasmo Smith Creatinine [Mass/Vol] 0.77 mg/dL Normal 0.55-1.02 [facility] Comment on above: Performed By: #### C MREP #### [facility] [address] [place] [address] Dr. Erasmo Smith EGFR-AF [place] >60 Normal >=60 [facility] Comment on above: Performed By: #### C MREP #### [facility] [address] [place] [address] Dr. Erasmo Smith EGFR-NON AF [place] >60 Normal >=60 [facility] Comment on above: Performed By: #### C MREP #### [facility] [address] [place] [address] Dr. Erasmo Smith Globulin (S) [Mass/Vol] 4.3 g/dL Normal [facility] Comment on above: Performed By: #### C MREP #### [facility] [address] [place] [address] Dr. Erasmo Smith Glucose [Mass/Vol] 92 mg/dL Normal 74-106 [facility] Comment on above: Performed By: #### C MREP #### [facility] [address] [place] [address] Dr. Erasmo Smith Potassium [Moles/Vol] 4.0 mmol/L Normal 3.5-5.1 [facility] Comment on above: Performed By: #### C MREP #### [facility] [address] [place] [address] Dr. Erasmo Smith Protein [Mass/Vol] 7.9 g/dL Normal 6.4-8.2 [facility] Comment on above: Performed By: #### C MREP #### [facility] [address] [place] [address] Dr. Erasmo mSith Sodium [Moles/Vol] 140 mmol/L Normal 136-145 [facility] Comment on above: Performed By: #### C MREP #### [facility] [id number] Erasmo Smith Urea nitrogen [Mass/Vol] 17.0 mg/dL Normal 7.0-18.0 [facility] Comment on above: Performed By: #### C MREP #### [facility] [address] [address] [address] Erasmo Smith Urea nitrogen/Creatinine [Mass ratio] 22.1 mg/mg Normal [facility] [facility] Comment on above: Performed By: #### C MREP #### [facility] [address] [address] [address] Erasmo Smith PROTIMEon 02-24-2022 INR Coag (PPP) [Relative time] 2.28 {INR} Normal [facility] Comment on above: Performed By: #### P T, PTT ####[facility] [address] [address]Dr. Erasmo Smith INR GUIDELINES SEE BELOW Normal [facility] Comment on above: Result Comment: ABNER RED INR: 2.0 - 3.0 CONDITIONS NOT LISTED BELOW 2.5 - 3.5 FOR PROSTHETIC HEART VALVE REPLACEMENT 2.5 - 3.5 RECURRENT THROMBOSIS Performed By: #### P T, PTT ####[facility] [address] [address]Dr. Erasmo Smith PT Coag (PPP) [Time] 23.3 s Critically high 9.0-11.6 [facility] Comment on above: Performed By: #### P T, PTT ####[facility] [address] [id number]. Erasmo Smith PTTon 02-24-2022 aPTT Coag (Bld) [Time] 34.7 s Normal 22.3-36.[address] [facility] Comment on above: Performed By: #### P T, PTT ####[facility] [address] [address]Dr. Erasmo Smith TROPONIN, HIGH SENSITIVITYon 02-24-2022 HSTROP 6.6 pg/mL Normal 4.0-51.3 [facility] Comment on above: Result Comment: CUT- OFF POINTS HAVE BEEN ESTABLISHED BASED ON THE FOURTH UNIVERSAL DEFINITIONS OF MYOCARDIAL INFARCTION. THE UPPER REFERENCE LIMIT (URL) OF TROPONIN, DEFINED THE 99TH PERCENTILE OF cTnI DISTRIBUTION IN A REFERENCE POPULATION, HAS BEEN CONFIRMED THE DECISION THRESHOLD FOR MO DIAGNOSIS. Performed By: #### C MREP #### [facility] [address] [place], [place] [address] Dr. Erasmo Smith PROTHROMBIN TIMEon 2 INR Coag (PPP) [Relative time] 1.2 {INR} High 0.86-1.16 [facility] Comment on above: Result Comment: INR Theraputic Range: 2.0-3.5 Performed at [facility] [address] [facility] [address] PT Coag (PPP) [Time] 12.7 s Normal 9.3-12.7 [facility] ANTICOAGULANT COUMADIN Normal [facility] Vital Signs Date Time Vital Sign Value Performing Clinician Faci lity 10-07-2021 16:00-0500 Body height 146.69 cm Hong Nevarez Other [employer] Other 10-07-2021 16:00-0500 Body mass index (BMI) [Ratio] 51.01 kg/m2 Hong Nevarez Other [employer] Other 10-07-2021 16:00-0500 Body weight 109.77 kg Hong Geri Other [employer] Other 08-26-2021 15:15-0500 Body height 146.69 cm Hong Geri Other [employer] Other 08-26-2021 15:15-0500 Body mass index (BMI) [Ratio] 51.07 kg/m2 Hong Geri Other [employer] Other 08-26-2021 15:15-0500 Body weight 109.91 kg Hong Nevarez Other [facility] [employer] Other Encounters Encounter Date Encounter Type Care Provider Facility Start: 01-17-2024 End: [facility]: 12-29-2023 End: 12-29-2023 ambulatory SHAIKH CIRA Not Available Start: 12-27-2023 End: 12-27-2023 ambulatory YANCY [facility] Start: 12-26-2023 End: 12-27-2023 ambulatory Miguel Murphy MD Facility: [facility] Start: 12-05-2023 End: 12-06-2023 ambulatory Miguel Murphy MD Facility: [facility] Start: 11-16-2023 End: 11-16-2023 ambulatory Kayley Reeder Facility:[facility] Start: 11-07-2023 End: 11-07-2023 ambulatory SHAIKH CIRA Not Available Start: 10-17-2023 Cristobal Denis MD Work Phone: [facility] Start: 10-17-2023 Cristobal Denis MD Work Phone: [facility] Start: 10-17-2023 End: 10-17-2023 ambulatory SHAIKH CIRA Not Available Start: 10-11-2023 End: 10-11-2023 ambulatory MD Shaikh Denis Work Phone: [facility] Work Phone: Start: 10-11-2023 End: 10-11-2023 Patient encounter procedure MD Shaikh Denis Work Phone: [facility] [place] Work Phone: Start: 09-08-2023 End: 09-08-2023 ambulatory Claire Clement Facility:[facility] Start: 09-08-2023 End: 09-08-2023 ambulatory MD Shaikh Denis Work Phone: [facility] Work Phone: Start: 09-08-2023 End: 09-08-2023 Patient encounter procedure MD Shaikh Denis Work Phone: [facility]-Pac[facility] Check Start: 09-06-2023 End: 09-06-2023 ambulatory SHAIKH CIRA Not Available Start: 09-06-2023 Patient encounter procedure Shaikh Cira CUBA Work Phone: [facility] Start: 07-08-2023 End: 07-08-2023 ambulatory [facility] Start: 07-05-2023 End: 07-05-2023 ambulatory [facility] Start: 04-11-2023 End: 04-12-2023 ambulatory Andrius Alistair Murphy MD Facility: [facility] Start: 03-01-2023 End: 03-01-2023 ambulatory [facility] Start: 01-31-2023 End: 02-01-2023 ambulatory [...] 10-07-2021 End: 10-07-2021 ambulatory Hong Nevarez Other [employer] Other Start: 10-07-2021 Office outpatient visit 15 minutes Hong Nevarez [facility] Start: 08-26-2021 End: 08-26-2021 ambulatory Hong Nevarez Other [employer] Other Start: 08-26-2021 Office outpatient ne w 45 minutes Hong Nevarez [facility] Start: 10-11-2020 End: 10-13-2020 Evaluation and management of inpatient ZANE MAYNOR Facility:[facility] Procedures Date Procedure Procedure Detail [...] [facility] [address] [place] [address] Shaikh Denis MD [address] [place] [id number] [facility] Start: 10-17-2023 End: 10-17-2023 Patient encounter procedure 10/17/2023 10:15 AM EST Office Visit [facility] [address] [place] [id number] Shaikh Denis MD [address] [place] [address] Arrived [facility] Comment on above: Arrived Start: 1945 Screening for malign ant neoplasm of colon [facility] Payers Date Payer Category Payer Private Health Insurance [id number] 2023 Self-pay [id number] 2023 Managed Care HMO (unspecified) AETZENAIDA AELEENA [id number] 2023-Present [address] [place] [address] HMO [id number] 2022 Private Health Insurance 2007 Medicare [id number]. [id number]. [id number] 1959 Medicare [id number] 1959 Private Health Insurance [facility] [id number] 1945 Unknown [id number] 2.16.840.1.496544.3.579.2. 647 1945 Unknown [id number] 2.16.840.1.935172.3.579.2. 727 1945 Unknown [id number] 2.16.840.1.951960.3.579.2. 593 1945 Unknown [id number] 2.16.840.1.573094.3.579.2. 593 1947 Unknown [id number] 2.16.840.1.279554.3.579.2. 593 1947 Unknown [id number] 2.16.840.1.845303.3.579.2. 593 1947 Unknown [id number] 2.16.840.1.164561.3.579.2. 593 1947 Unknown [id number] 2.16.840.1.888461.3.579.2. 593 1947 Unknown [id number] 2.16.840.1.991528.3.579.2. 593 1947 Unknown [id number] 2.16.840.1.763591.3.579.2. 593 1947 Unknown [id number] 2.16.840.1.523409.3.579.2. 593 1947 Unknown [id number] 2.16.840.1.956277.3.579.2. 593 1947 Unknown [id number] 2.16.840.1.015668.3.579.2. 593 1947 Unknown [id number] 2.16.840.1.939371.3.579.2. 593 1947 Unknown [id number] 2.16.840.1.646646.3.579.2. 593 1947 Unknown [id number] 2.16.840.1.089916.3.579.2. 593 1947 Unknown [id number] 2.16.840.1.314256.3.579.2. 593 1947 Unknown [id number] 2.16.840.1.947555.3.579.2. 593 1947 Unknown [id number] 2.16.840.1.073834.3.579.2. 593 1947 Unknown [id number] 2.16.840.1.370024.3.579.2. 593 1947 Unknown [id number] 2.16.840.1.443699.3.579.2. 593 1947 Unknown [id number] 2.16.840.1.814113.3.579.2. 593 1947 Unknown [id number] 2.16.840.1.981412.3.579.2. 593 1947 Unknown [id number] 2.16.840.1.838749.3.579.2. 593 1947 Unknown [id number] 2.16.840.1.176148.3.579.2. 593 1947 Unknown [id number] 2.16.840.1.870354.3.579.2. 593 1947 Unknown [id number] 2.16.840.1.995347.3.579.2. 593 1947 Unknown [id number] 2.16.840.1.565672.3.579.2. 593 1947 Unknown [id number] 2.16.840.1.359193.3.579.2. 1259 1947 Unknown [id number] 2.16.840.1.640056.3.579.2. 1259 1947 Unknown [id number] 2.16.840.1.346405.3.579.2. 1259 1947 Unknown [id number] 2.16.840.1.439806.3.579.2. 1259 8 Unknown [id number] 2.16.840.1.857157.3.579.2. 196 1945 Unknown [id number] 2.16.840.1.135002.3.579.2. 196 1947 Unknown [id number] 2.16.840.1.521188.3.579.2. 196 1945 Unknown [id number] 2.16.840.1.636963.3.579.2. 196 Medicare Medicare Outpatient [id number] [id number] Unknown [place] [facility] [id number] Unknown [id number] 2..840.1.112822.3.579.2. 531 Unknown [id number] 2.160.1.217240.3.579.2. 531 Unknown [id number] 2..840.1.118861.3.579.2. 531 Social History Date Type Detail Facility Start: 08-30-2023 End: 09-06-2023 Sex Assigned At [facility] Start: 1945 Sex Assigned At Female [facility] Start: 08-18-2023 Tobacco smoking stat [place] Ex-smoker [facility] History of tobacco use Current smoker [facility] History of tobacco use Cigarette Smoker [facility] Start: 09-02-2023 Alcohol intake Not Asked [facility] Start: 08-30-2023 End: 09-06-2023 History of Social function [facility] Within the last year , have you been afraid of your partner or ex-partner? No [facility] How often do you att end christianity or gnosticist services? Patient refused [facility] Do you belong to any clubs or organizations such as christianity groups, unions, fraternal or athletic groups, or [...] Sex Assigned At Not on file N [facility] Progress note 01-17-2024 Note Date & [...] All other systems reviewed and are negative. [facility] Progress note 01-17-2024 Note Date & Type Note Facility 01-17-2024 Note Cardiovascular Medic [facility] SUBJECTIVE Chief Complaint Patient presents with Atrial Fibrillation Breann Starks is a 78 y.o. female here for follow-up. HPI PMHx: A-fib, atrial tachycardia s/p ablation 2005, sick sinus syndrome s/p PPM 10/2020 dual-chamber [employer], COPD, mild CAD s/p cardiac cath 2010, SHAWANDA noncompliant with mask, and obesity. She has been doing well since last seen. No significant changes. Denies c/o CP, dyspnea, orthopnea, PND, LE edema, dizziness/LH, palpitations, syncope. Patient Active Problem List Diagnosis Disorder of bursae of shoulder region Chronic obstructive lung disease (CMS/HCC) Atherosclerosis of [place] coronary artery of [place] heart without angina pectoris Diaphragmatic hernia Edema [...] Final Monocytes Absolu (more content not included)... [facility] Progress note 07-05-2023 Note Date & [...] sick sinus syndrome s/p PPM 10/2020 dual-chamber [employer], COPD, mild CAD s/p cardiac cath [...] could not afford DOAC. Patient underwent dual-chamber [employer] pacemaker placement on 10/13/2020. On subsequent [...] on holter and was DCCV by Dr Sliva. She had an event monitor for dizziness [...] both knees Hypocalcemi (more content not included)... [facility] Progress note 03-01-2023 Note Date & [...] sick sinus syndrome s/p PPM 10/2020 dual-chamber Red [employer], COPD, mild CAD s/p cardiac cath [...] could not afford DOAC. Patient underwent dual-chamber Red [employer] pacemaker placement on 10/13/2020. On subsequent [...] KNEE ARTHROPLASTY Bi (more content not included)... [facility] Discharge summary note 12-13-2022 Note Date & Type Note Facility 12-13-2022 Note [id number]# 1.00CD:127 [facility] Evaluation note 10-07-2021 Note Date & Type Note Facility 10-07-2021 Evaluation note Encounter Date Diagnosis Assessment Notes Sep, LOJA (nonalcoholic steatohepatitis ) (ICD-10 - K75.81) OBTAIN FIBROS[facility] RESULTS FROM [facility] RE[facility] ON RESULTS PT ENCOURAGED WEIGHT LOSS RTO ONE YEAR WITH LABS ANNUALLY Sep, Unspecified cirrhosis of liver (ICD-10 - K74.60) [employer] Other Evaluation note 08-26-2021 Note Date & Type Note Facility 08-26-2021 Evaluation note Encounter Date Diagnosis Assessment Notes Aug, Nonalcoholic steatohepatitis (LOJA) (ICD-10 - K75.81) RTO 6-8 WEEKS Aug, Unspecified cirrhosis of liver (ICD-10 - K74.60) Aug, Morbid obesity (ICD-10 - E66.01) [employer] Other Evaluation note Note Date & Type Note Facility Evaluation note No assessment information availa [facility] Work Phone: History general Narrative [...] Surgical History pacemaker Hospitalization History see above [employer] Other Summary Purpose Family History No Family [...] and content) DATE CREATED AUTHOR 10/23/2021 [facility] DATE CREATED AUTHOR AUTHOR'S ORGANIZ ATION 01/22/2022 [facility] DATE CREATED AUTHOR AUTHOR'S ORGANIZ ATION 01/14/2023 [facility] DATE CREATED AUTHOR AUTHOR'S ORGANIZ ATION 02/18/2023 [facility] DATE CREATED AUTHOR AUTHOR'S ORGANIZ ATION 11/27/2023 [facility] DATE CREATED AUTHOR AUTHOR'S ORGANIZ ATION 12/31/2023 [facility] EPIC DATE CREATED AUTHOR AUTHOR'S ORGANIZ ATION 01/17/2024 [facility] DATE CREATED AUTHOR AUTHOR'S ORGANIZ ATION 01/28/2024 [facility] REASON FOR VISIT (unrecogniz ed section and [...] October 11, 2023 End: October 11, 2023 Data Migration Consultant Relationship Specialty Start Date End Date [...] BE BASED ON THE PRIMARY CLINICAL RECORDS. [employer] provides no warranty or guarantee of the accuracy or completeness of information in this document.
--- NOTE | 2024-02-21 17:46 | XR_ITS ---
The [address] [address] Patient Name: MAXIMUS HERRMANN MRN: [id number] date: 1945 Sex: F Assigned Patient Location: [facility] Current Patient Location: Accession/Order Number: [id number] Exam Date: 02/21/2024 17:48 Report Date: 02/22/2024 07:27 At the request of: MABEL DE LEÓN Procedure: XR shoulder LT min 2V PROCEDURE: XR shoulder LT min 2V COMPARISON: None. 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 Mild acromioclavicular joint osteoarthritis. No acute fracture, dislocation or mechanical failure. Moderate spondylosis of the spine SOFT TISSUES:Negative. No visible soft tissue swelling. EFFUSION:None visible. OTHER: Left bipolar pacemaker XR/XR shoulder LT min 2V IMPRESSION: Left shoulder arthroplasty with no mechanical failure Electronically authenticated by: HONG ALSTON Date: 02/22/2024 07:27
== END 2024-02-21 17:13 | disposition home or self-care (01) ==
PROVIDERS: PCP Internal Medicine; Visit Provider Nurse Practitioner
DX: M25.512 Pain in left shoulder (principal); Z96.612 Presence of left artificial shoulder joint
CPT/HCPCS: 73030

== ENCOUNTER 2024-02-29 08:55 | Outpatient (OUT) | payer MEDICARE, SELFPAY ==
--- NOTE | 2024-02-29 09:54 | XR_ITS ---
The [address] [address] Patient Name: MAXIMUS HERRMANN MRN: [id number] date: 1945 Sex: F Assigned Patient Location: CARD Current Patient Location: LAB Accession/Order Number: [id number] Exam Date: 02/29/2024 10:05 Report Date: 03/01/2024 09:53 At the request of: SHAIKH ALBERTO Procedure: XR chest 2V PROCEDURE: XR chest 2V DATE: 02/29/2024 9:05 AM CDT COMPARISONS: 12/01/2022 CLINICAL INDICATION: 78 years Female Acute On Chronic Diastolic Heart Failure I50.33 FINDINGS: The heart is slightly prominent and stable. Electronic cardiac device is in stable position. There is slight scattered increased interstitial markings of the lungs likely representing some mild chronic lung changes, stable. Alternatively, this could represent a small amount of interstitial fluid due to congestion. There is no evidence of pleural effusion or pneumothorax. XR/XR chest 2V IMPRESSION: Today's exam shows findings consistent with some chronic lung changes and raises concern for slight mild pulmonary vascular congestion. Electronically authenticated by: JUAN RAMOS Date: 03/01/2024 09:53
[2024-02-29 11:02] LABS: Basophils Absolute Auto 0.1 10^3/uL (0.0-0.1); Basophils Percent Auto 0.5 % (0.2-2.0); Eosinophils Absolute Auto 0.3 10^3/uL (0.0-0.7); Eosinophils Percent Auto 2.7 % (0.9-7.0); Hematocrit 27.3 % (36.0-48.0); Hemoglobin 7.9 g/dL (12.0-16.0); Immature Granulocytes Abs Auto 0.03 10^3/uL (0.00-0.03); Immature Granulocytes Pct Auto 0.3 % (0.0-0.5); Lymphocytes Absolute Auto 1.8 10^3/uL (1.2-3.8); Lymphocytes Percent Auto 16.9 % (20.5-60.0); Mean Corpuscular Hemoglobin 21.7 pg (26.7-34.0); Mean Platelet Volume 8.8 fL (9.5-13.5); Monocytes Absolute Auto 0.7 10^3/uL (0.3-0.8); Monocytes Percent Auto 6.5 % (1.7-12.0); Neutrophils Absolute Auto 7.8 10^3/uL (1.4-6.5); Neutrophils Percent Auto 73.1 % (43.0-75.0); Platelet Count 404 10^3/uL (150-450); Red Blood Count 3.64 10^6/uL (4.20-5.40); Red Cell Distribution Width 19.3 % (11.0-15.0); White Blood Count 10.7 10^3/uL (4.0-11.0)
[2024-02-29 11:28] LABS: Mean Corpuscular HGB Conc 28.9 g/dL (29.9-35.2)
[2024-02-29 12:48] LABS: Alanine Aminotransferase 20 U/L (14-59); Albumin Globulin Ratio 0.6; Albumin Level 2.9 g/dL (3.4-5.0); Alkaline Phosphatase 79 U/L (46-116); Anion Gap 11.5; Aspartate Amino Transferase 20 U/L (15-37); BUN Creatinine Ratio 24.3; Bilirubin Total 0.4 mg/dL (0.2-1.0); Calcium 9.2 mg/dL (8.5-10.1); Carbon Dioxide 28.3 mmol/L (21.0-32.0); Chloride 102 mmol/L (98-107); Estimated GFR (African America >60 (>=60); Estimated GFR (Non-African Ame >60 (>=60); Globulin 4.9 g/dL; Glucose 99 mg/dL (74-106); Potassium 3.8 mmol/L (3.5-5.1); Sodium 138 mmol/L (136-145); Total Protein 7.8 g/dL (6.4-8.2)
== END 2024-02-29 08:56 | disposition home or self-care (01) ==
PROVIDERS: PCP Internal Medicine; Visit Provider Internal Medicine
DX: I50.33 Acute on chronic diastolic (congestive) heart failure (principal); R06.02 Shortness of breath; D50.9 Iron deficiency anemia, unspecified
CPT/HCPCS: 36415; 71046; 80053; 83880; 85025; 93306

== ENCOUNTER 2024-02-29 16:40 | Outpatient (OUT) | payer MEDICARE, SELFPAY ==
--- OUTSIDE RECORDS SUMMARY | 2024-02-29 16:46 | XMS_ITS | CCD ---
Author Organization [facility] CliniSyok Care Team Providers Care Public Information Coordinator Name Role Phone ZANE MCGUIRE Admitting Unavailable YANCY HENNESSY Referring Unavailable LUISANA FISHER Primary Care Unavailable ZANE MCGUIRE Attending Unavailable YANCY HENNESSY Surgeon Unavailable [place] Procedure Practitioner UnavailHong Ambrose [...] ., DR LUISANA Herbert Primary Care Unavailable STEPHANIE, DR PAULA Bishop Consulting Unavailable SAMSA ., LUIZ Admitting Unavailable SAMSA ., LUIZ Attending Unavailable SAMSA ., LUIZ Consulting Unavailable FISHER ., DR LUISANA Herbert Primary Care Unavailable FAWWAD, SAHU H Attending Unavailable FAWWAD, SAHU H Admitting Unavailable FISHER ., DR LUISANA Herbert Primary Care Unavailable FAWWAD, SAHU H Attending Unavailable FAWWAD, SAHU H Admitting Unavailable FISHER ., DR LUSIANA Herbert Primary Care Unavailable FAWWAD, SAHU H [...] DR PAULA Bishop Consulting Unavailable REQUEST, DR JOSE LISTED Primary Care Unavaila ble GIEDRAITIS, ANDRIUS [...] Care Unavailable GRECHNY ., DANIELLE SHAIKH Consulting Unavailpriyanka herbert RIVER ., KAYLEY Admitting Unavailable RIVER ., KAYLEY Attending Unavailable [place], DR HONG Morgan Consulting Unavailable FISHER ., [...] Attending Unavailable FAWWAD, SAHU H Admitting Unavailable SAMSA ., LUIZ Admitting Unavailable SAMSA ., LUIZ Attending Unavailable SAMSA ., LUIZ Consulting Unavailable FISHER ., DR LUISANA Herbert Primary Care Unavailable THANG Clement Attending Provider MD Janice Denis Primary Care Provider [phone] THANG Clement Attending Provider [phone] Cira CUBA [facility] Primary Care Provider [phone] Claire Clement Admitting Unavailable Claire Clement Attending [facility]available [facility] Primary Care Unavailable Kayley Reeder Admitting Unavailable Kayley Reeder Attending Unavailable [facility], [facility] Primary Care Unavailable Claire Clement Admitting Unavailable Claire Clement Attending [facility] Unavailable Giedraitis , Andrius Sainz Attending Unavailable Giedraitis , Andrius Vrenee Attending Unavailable Giedraitis , Andrius Vytautwilma Attending Unavailable Giedraitis , Andrius Vrenee Attending Unavailable YANCY HENNESSY Referring Unavailable YANCY HENNESSY Attending Unavailable YANCY HENNESSY Attending Unavailable NICANOR DINH Attending Unavailable YANCY HENNESSY Referring Unavailable CIRA, Attending Unavailable FASILVANA, Attending Unavailable FASILVANA, Attending Unavailable FAWMADHURI, Attending Unavailable FASILVANA, Attending Unavailable Allergies Allergy Classification Reported Allergen(s) Allergy Type Date of Onset Reaction(s) Facility (1 source) ; Translations: [novacaine] Propensity to adverse reactions (disorder) 2 [facility] Repository (2 sources) NSAIDs Propensity to adverse reactions HEART ISSUES [email or web address] Other (1 source) meloxicam; Translations: [Mobic] Drug Allergy [facility] Repository (1 source) No Known Medication Allergies; Translations: [No Known Medication Allergies] Propensity to adverse reactions (disorder) [facility] Repository (1 source) Adhesive agent Drug allergy (disorder) 4 [facility] Repository (1 source) NSAIDs Drug allergy (disorder) [address] [place] [address] Repository Medications Current Medications Medication Drug Class(es) [...] 0 10/13/2023 Active take 1 capsule by [facility] every twenty-four hours Omeprazole 40 MG [...] 02/14/2023 02/14/2024 Active take 1 capsule by [facility] every twenty-four hours Verapamil HCl ER [...] disease (2 sources) Atherosclerotic heart disease of [place] coronary artery without angina pectoris; Translations: [Coronary [...] Onset: 3 Episodic Other aftercare (1 source) long-term (current) use of anticoagulants; Translations: [PRISON CURRNT USE 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] Onset: 3 Episodic Other aftercare (1 source) 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 I called Sony Abbyangélica from [employer] and he told me this feeling she's having should not be from her device. Patient informed. I suggested she see PCP for this. She verbalized understanding. Normal [facility] Office Visiton 01-17-2024 Follow-up visit [id number] Breann Starks 1945 F Date Provider Department Center 01/17/2024 NICANOR REGAN Family History Adopted: Yes Family history unknown: Yes Family Status - Relation Status Age at Mother Father Level of Service:44673 [place] OFFICE/OUTPATIENT ESTABLISHED MOD MDM 30 MIN Reason for Visit and Comments: Atrial Fibrillation [80] Normal [facility] XR lumbar spine 6V w bending on 11-16-2023 XR lumbar spine 6V w bending [facility] [place] [address] XRay Report Signed Patient: Breann Starks MR#: [id number] 171 : 1945 Acct:[id number] Age/Sex: 77 / F ADM Date: 11/16/23 Loc: XD Room: Type: [facility] Attending Dr: Kayley DESIR Copies [...] Impression dictated by: Francisco J Benton Jr., D.OMeena11/16/2023 4:37 PM Dictation Location: [place] [address] Transcribed By: [facility] 11/16/23 1637 Dictated By: Francisco J Benton Jr, DO 11/16/23 1636 Signed By: 11/16/23 1637 [facility] MR lumbar spine wo conon MR lumbar spine wo con [facility] Main [place] [address] [place] [address] XRay Report Signed Patient: Breann Starks MR#: [id number] 171 : 1945 Acct:[id number] Age/Sex: 77 / F ADM Date: 10/11/23 Loc: Room: Type: [facility] Attending Dr: Claire DESIR Copies to: THANG Porter Ordering Provider: THANG Porter Date of Service: 10/11/23 MR/MR lumbar spine wo con: LUMBAR RADICULPATHY ([id number]) XR/XR pre/post mri xray: LUMBAR RADICULPATHY CLINICAL [...] Eleanor Reece M.D.10/11/2023 4:10 PM Dictation Location: [facility]--12 Transcribed By: [facility] 10/11/23 161 Dictated By: Eleanor Reece MD 10/11/23 1133 Signed By: 10/11/23 1610 [facility] Office Visiton 07-05-2023 Follow-up visit [id number] Kj Starksjoselito Mckenzie 1945 Date Provider Department Center 07/05/2023 YANCY IVERSON Family History Adopted: Yes Family history unknown: Yes Family Status - Relation Status Age at Mother Father Level of Service:25460 [place] OFFICE/OUTPATIENT ESTABLISHED LOW MDM 20-29 MIN Normal [facility] Office Visiton 03-01-2023 Follow-up visit [id number] TerezaBreann T 1945 Provider Department Center 03/01/2023 YANCY IVERSON Family History Adopted: Yes Family history unknown: Yes Family Status - Relation Status Age at Mother Father Level of Service:88477 [place] OFFICE/OUTPATIENT ESTABLISHED MOD MDM 30-39 MIN Reason for Visit and Comments: Follow-up [057589] - 3 month follow up Normal [facility] XR LSPINE W_OBLS AND FLEX_EX Ton 01-31-2023 [...] by: PAULA DELGADO Date: 2023-01-31 11:34 Normal [facility] Physician Referralon 023 Physician Referral [id number] #1.00CD:127 Normal [facility] Ambulatory Visit Summaryon 0 01-11-2023 Ambulatory [...] choice/referral by family/friend, Pain Management, [facility] Pain managment., 01/11/23 11:02:00 EDT, Sciatica of left side Normal [facility] Ambulatory Visit Summary BREANN STARKS :1945 [...] longer receiving treatment for. Depression Migraines Normal [facility] Family Medicine Office/Clini c Noteon 01-11-2023 Family Medicine Office/Clinic Note HPI Staff Breann is a 77 year old female who presents today to [facility]. Establish Care: History: A fib, COPD, OA of LS and bilateral knees, PSVT, fatty liver, cervical radiculopathy, pacemaker, cirrhosis of the liver History of specialists: Dr. Gonzales, Dr. Kaur-Cardiology, Dr. Martin- chiropractor, [facility] Last provider: Elizabeth Any recent labs: Jul 2022 Health Maintenance UTD: Colonoscopy: 2012, pt is due Mammogram: December 2022 at [facility] which was normal Pelvic/Pap: pt had [...] longer taking that. will refer back to [facility]. All questions answered. RTC as needed Ordered: methylPREDNISolone, = 1 packet(s), Oral, As Directed, as directed on package labeling, X 6 day(s), # 21 tab(s), Refills(s) 0, Pharmacy: [facility]/pharmacy #[id number], 141, cm, 01/11/23 10:30:00 EDT, Height/Length Dosing, 107.2, kg, 01/11/23 10:30:00 EDT, Weight Dosing [facility] External Ambulatory Referral 2. Myalgia (M79.10: Myalgia, unspecified site) medrol dose pack ordered Ordered: methylPREDNISolone, = 1 packet(s), Oral, As Directed, as directed on package labeling, X 6 day(s), # 21 tab(s), Refills(s) 0, Pharmacy: [facility]/pharmacy #[id number], 141, cm, 01/11/23 10:30:00 EDT, Height/Length [...] Oral, D (more content not included)... Normal [facility] Comment on above: Result Comment: Elec tronically Signed By: Barbara Dai\.br\Date and Time Signed: 01/11/23 11:12 EDT Lab Reportson 12-22-2022 Lab Reports [id number] #1.00CD:127 Normal [facility] LIPID PROFILEon 12-16-2022 CHOL-HDL RATIO NORM SEE BELOW Normal [facility] [place] [facility] Comment on above: Result Comment: 3.3 - 4.4 LOW RISK 4.4 - 7.1 AVERAGE RISK 7.1 - 11.0 MODERATE RISK >11.0 HIGH RISK Performed By: #### L IPID ####[facility] [address] [place] [phone]. Heavenean Smith Cholesterol [Mass/Vol] 105 mg/dL Normal <=200 [facility] Comment on above: Performed By: #### L IPID ####[facility] [address] [place] [phone]. Heavenean Luis Cholesterol in HDL [Mass/Vol] 48 mg/dL Normal 40-60 [facility] Comment on above: Performed By: #### L IPID ####[facility] [address] [place] [phone]. Heavenean Luis Cholesterol in LDL [Mass/Vol] 48.2 mg/dL Normal [facility] Comment on above: Performed By: #### L IPID ####[facility] [address] [place] [phone]. Heavenean Luis Cholesterol.total/Chol esterol in HDL [Mass ratio] 2.2 {ratio} Normal [facility] Comment on above: Performed By: #### L IPID ####[facility] [address] [place] [phone]. Heavenean Smith HDL NORMAL > or = 60 mg/dl - LOW CARDIOVASCULAR RISK <40 mg/dl - HIGH CARDIOVASCULAR RISK Normal [facility] Comment on above: Performed By: #### L IPID ####[facility] [address] [place] [phone]. Heavenean Smith LDL CALC NORMAL SEE BELOW Normal [facility] Comment on above: Result Comment: <100 mg/dl OPTIMAL 100 - 129 mg/dl NEAR OR ABOVE OPTIMAL 130 - 159 mg/dl BORDERLINE HIGH 160 - 189 mg/dl HIGH >190 mg/dl VERY HIGH Performed By: #### L IPID ####[facility] [address] [place], [place] [address]Ij. Erasmo Smith Triglyceride [Mass/Vol] 44 mg/dL Normal <=150 [facility] Comment on above: Performed By: #### L IPID ####[facility] [address] [place], [place] [address]Kn. Erasmo Smith VLDL CALC 8.8 mg/dL Normal [facility] Comment on above: Performed By: #### L IPID ####[facility] [address] [place], [place] [address]Pn. Erasmo Smith Echocardiographyon Echocardiography [id number] #1.00CD:127 Normal [facility] Correspo ndenceon 12-13-2022 [facility] Correspondence [id number] #1.00CD:127 Normal [facility] Correspondence [id number]# 1.00CD:127 Normal [facility] CULTURE BLOODon 12-04-2022 Microscopic examination of [...] F Trimethoprim/Sulfame thoxazole <=20 S F Normal [facility] Comment on above: Performed By: #### B LDCX1 ####[facility] [address] [place] [phone]. Erasmo Smith BNPon 12-03-2022 Natriuretic peptide B (Bld) [Mass/Vol] 413.0 pg/mL Normal <=1,800.0 [facility] Comment on above: Performed By: #### B MEDIA MARKETING MANAGER #### [facility] Laboratory [address] [place] [address] [address] Erasmo Smith CBC AUTO DIFFon 12-03-2022 BASO # 0.0 103/ul Normal 0.0-0.1 [facility] Comment on above: Performed By: #### C BC ####[facility] [address] [place] [address]DrMeena Smith Basophils/100 WBC (Bld) 0.2 % Normal 0.2-2.0 [facility] Comment on above: Performed By: #### C BC ####[facility] [address] [place] [address]Dr. Erasmo Smith EO # 0.4 103/ul Normal 0.0-0.7 [facility] Comment on above: Performed By: #### C BC ####[facility] [address] [place], [place] [address]DrMeena Smith Eosinophils/100 WBC (Bld) 2.1 % Normal 0.9-7.0 [facility] Comment on above: Performed By: #### C BC ####[facility] [address] [place], [place] [address]DrMeena Smith Erythrocyte distribution width (RBC) [Ratio] 17.2 % Critically high 11.0-15.0 [facility] Comment on above: Performed By: #### C BC ####[facility] [address] [place] [address]DrMeena Smith Hematocrit (Bld) [Volume fraction] 29.2 % Critically low 36.0-48.0 [facility] Comment on above: Performed By: #### C BC ####[facility] [address] [place], [place] [address]DrMeena Smith Hemoglobin (Bld) [Mass/Vol] 9.5 g/dL Critically low 12.0-16.0 [facility] Comment on above: Performed By: #### C BC ####[facility] [address] [place] [address]Dr. Erasmo Smith IG # 0.13 10e3/ul Critically high 0.00-0.[address] [facility] Comment on above: Performed By: #### C BC ####[facility] [address] [place] [address]Dr. Erasmo Smith IG % 0.8 % Critically high 0.0-0.5 [facility] Comment on above: Performed By: #### C BC ####[facility] [address] [place] [address]Dr. Erasmo Luis LYMPH # 1.8 103/ul Normal 1.2-3.8 [facility] Comment on above: Performed By: #### C BC ####[facility] [address] [place] [address]Dr. Heavenean Smith Lymphocytes/100 WBC (Bld) 10.3 % Critically low 20.5-60.0 [facility] Comment on above: Performed By: #### C BC ####[facility] [address] [place] [address]Dr. Erasmo Luis MANUAL DIFF REQ NO Normal [facility] Comment on above: Performed By: #### C BC ####[facility] [address] [place] [address]Dr. Erasmo Smith MCH (RBC) [Entitic mass] 25.7 pg Critically low 26.7-34.0 [facility] Comment on above: Performed By: #### C BC ####[facility] [address] [place] [address]Dr. Erasmo Smith MCHC (RBC) [Mass/Vol] 32.5 g/dL Normal 29.9-35.2 [facility] Comment on above: Performed By: #### C BC ####[facility] [address] [place] [address]Dr. Erasmo Smith MCV (RBC) [Entitic vol] 79.1 fL Critically low 81.0-99.0 [facility] Comment on above: Performed By: #### C BC ####[facility] [address] [place] [phone]. Erasmo Smith MONO # 1.5 103/ul Critically high 0.3-0.8 [facility] Comment on above: Performed By: #### C BC ####[facility] [address] [place] [phone]. Erasmo Smith Monocytes/100 WBC (Bld) 8.7 % Normal 1.7-12.0 [facility] Comment on above: Performed By: #### C BC ####[facility] [address] [place] [address]Dr. Erasmo Smith NEUT # 13.4 103/ul Critically high 1.4-6.5 [facility] Comment on above: Performed By: #### C BC ####[facility] [address] [place] [address]Dr. Erasmo Smith Neutrophils/100 WBC (Bld) 77.9 % Critically high 43.0-75.0 [facility] Comment on above: Performed By: #### C BC ####[facility] [address] [place] [address]Dr. Erasmo Smith Platelet mean volume (Bld) [Entitic vol] 9.3 fL Critically low 9.5-13.5 [facility] Comment on above: Performed By: #### C BC ####[facility] [address] [place] [phone]. Erasmo Smith PLT 205 103/ul Normal 150-450 [facility] Comment on above: Performed By: #### C BC ####[facility] [address] [place] [phone]. Erasmo Smith RBC 3.69 106/ul Critically low 4.20-5.40 [facility] Comment on above: Performed By: #### C BC ####[facility] [address] [place] [phone]. Erasmo Smith WBC 17.2 103/ul Critically high 4.0-11.0 [facility] Comment on above: Performed By: #### C BC ####[facility] [address] [place], [place] [address]Dr. Erasmo Smith MAGNESIUMon 12-03-2022 Magnesium [Mass/Vol] 1.9 mg/dL Normal 1.8-2.4 [facility] Comment on above: Performed By: #### B MEDIA MARKETING MANAGER #### [facility] [address] [place] [address] Dr. Erasmo Smith PROF 14(COMP METB)on 023 Albumin [Mass/Vol] 2.6 g/dL Critically low 3.4-5.0 [facility] Comment on above: Performed By: #### B MEDIA MARKETING MANAGER #### [facility] [address] [place] [address] Dr. Erasmo Smith Albumin/Globulin [Mass ratio] 0.6 {ratio} Normal [facility] Comment on above: Performed By: #### B MEDIA MARKETING MANAGER #### [facility] [address] [place] [address] Dr. Erasmo Smith ALP [Catalytic activity/Vol] 123 U/L Critically high 46-116 [facility] Comment on above: Performed By: #### B MEDIA MARKETING MANAGER #### [facility] [address] [place] [address] Dr. Erasmo Smith ALT [Catalytic activity/Vol] 28 U/L Normal 14-59 [facility] Comment on above: Performed By: #### B MEDIA MARKETING MANAGER #### [facility] [address] [place] [address] Dr. Erasmo Smith Anion gap [Moles/Vol] 9.4 mmol/L Normal [facility] Comment on above: Performed By: #### B MEDIA MARKETING MANAGER #### [facility] [address] [place] [address] Dr. Erasmo Smith AST [Catalytic activity/Vol] 21 U/L Normal 15-37 [facility] Comment on above: Performed By: #### B MEDIA MARKETING MANAGER #### [facility] [address] [place] [address] Dr. Erasmo Smith Bilirubin [Mass/Vol] 0.3 mg/dL Normal 0.2-1.0 [facility] Comment on above: Performed By: #### B MEDIA MARKETING MANAGER #### [facility] [address] [place] [address] Dr. Erasmo Smith Calcium [Mass/Vol] 8.3 mg/dL Critically low 8.5-10.1 [facility] Comment on above: Performed By: #### B MEDIA MARKETING MANAGER #### [facility] [address] [place] [address] Dr. Erasmo Smith Chloride [Moles/Vol] 105 mmol/L Normal 98-107 [facility] Comment on above: Performed By: #### B MEDIA MARKETING MANAGER #### [facility] [address] [place] [address] Dr. Erasmo Smith CO2 [Moles/Vol] 27.1 mmol/L Normal 21.0-32.0 [facility] Comment on above: Performed By: #### B MEDIA MARKETING MANAGER #### [facility] [address] [place] [address] Dr. Erasmo Smith Creatinine [Mass/Vol] 0.55 mg/dL Normal 0.55-1.02 [facility] Comment on above: Performed By: #### B MEDIA MARKETING MANAGER #### [facility] [address] [place] [address] Dr. Erasmo Smith EGFR-AF HONDURAN >60 Normal >=60 [facility] Comment on above: Performed By: #### B MEDIA MARKETING MANAGER #### [facility] [address] [place] [address] Dr. Erasmo Smith EGFR-NON AF HONDURAN >60 Normal >=60 [facility] Comment on above: Performed By: #### B MEDIA MARKETING MANAGER #### [facility] [address] [place] [address] Dr. Erasmo Smith Globulin (S) [Mass/Vol] 4.0 g/dL Normal [facility] Comment on above: Performed By: #### B MEDIA MARKETING MANAGER #### [facility] [address] [place] [address] Dr. Erasmo Smith Glucose [Mass/Vol] 132 mg/dL Critically high 74-106 [facility] Comment on above: Performed By: #### B MEDIA MARKETING MANAGER #### [facility] [address] [place] [address] Dr. Erasmo Smith Potassium [Moles/Vol] 3.5 mmol/L Normal 3.5-5.1 [facility] Comment on above: Performed By: #### B MEDIA MARKETING MANAGER #### [facility] [address] [place] [address] Dr. Erasmo Smith Protein [Mass/Vol] 6.6 g/dL Normal 6.4-8.2 [facility] Comment on above: Performed By: #### B MEDIA MARKETING MANAGER #### [facility] [address] [place] [address] Dr. Erasmo Smith Sodium [Moles/Vol] 138 mmol/L Normal 136-145 [facility] Comment on above: Performed By: #### B MEDIA MARKETING MANAGER #### [facility] [address] [place] [address] Dr. Erasmo Smith Urea nitrogen [Mass/Vol] 24.0 mg/dL Critically high 7.0-18.0 [facility] Comment on above: Performed By: #### B MEDIA MARKETING MANAGER #### [facility] [address] [place] [address] Dr. Erasmo Smith Urea nitrogen/Creatinine [Mass ratio] 43.6 mg/mg Normal [facility] Comment on above: Performed By: #### B MEDIA MARKETING MANAGER #### [facility] [address] [place] [address] Dr. Erasmo Smith PROTIMEon 12-03-2022 INR Coag (PPP) [Relative time] 4.41 {INR} Critically high [facility] Comment on above: Performed By: #### C MREP #### [facility] [address] [place] [address] Dr. Erasmo Smith INR GUIDELINES SEE BELOW Normal [facility] Comment on above: Result Comment: ABNER RED INR: 2.0 - 3.0 CONDITIONS NOT LISTED BELOW 2.5 - 3.5 FOR PROSTHETIC HEART VALVE REPLACEMENT 2.5 - 3.5 RECURRENT THROMBOSIS Performed By: #### C MREP #### [facility] [address] [place] [address] Dr. Erasmo Smith PT Coag (PPP) [Time] 43.0 s Critically high 9.0-11.6 [facility] Comment on above: Performed By: #### C MREP #### [facility] [address] [address] [address] Erasmo Smith BLOOD CULTURE ID PANELon A. baumannii Not detected Normal NOT DETECTED [facility] Comment on above: Performed By: #### B CID2 ####[facility] [address] [id number]. Erasmo Smith Bacteriodes fragilis Not detected Normal NOT DETECTED [facility] Comment on above: Performed By: #### B CID2 ####[facility] [address] [address]Dr. Erasmo Smith BCID CONTROLS PASSED Normal [facility] [place] Comment on above: Performed By: #### B CID2 ####[facility] [address] [address]Dr. Erasmo Smith BCIDBTHD BLOOD CULTURE BOTTLE INFORMATION Normal [facility] Comment on above: Performed By: #### B CID2 ####[facility] [address] [address]Dr. Erasmo Smith BCIDHD1 ANTIMICROBIAL RESISTANCE GENES Normal [facility] Comment on above: Performed By: #### B CID2 ####[facility] [address]zz[address] [address]Dr. Erasmo Smith BCIDHD2 SEE BELOW Normal [facility] Comment on above: Result Comment: Note : Antimicrobial resitance can occur via multiple mechanisms. A Not Detected result for the [employer] antomicrobial resistance gene assays does not indicate antimicrobial susceptibility. Subculturing is required for species identification and susceptibility testing of isolates. Performed By: #### B CID2 ####[facility] [address] [address]Dr. Erasmo Smith BCIDHD3 Positive Normal [facility] Comment on above: Performed By: #### B CID2 ####[facility] [address]bel[address] [address]Dr. Erasmo Smith BCIDHD4 Negative Normal [facility] Comment on above: Performed By: #### B CID2 ####[facility] [address] [address]Dr. Erasmo Smith BCIDHD5 YEAST Normal [facility] Comment on above: Performed By: #### B CID2 ####[facility] J[address]swys[address] [address]Dr. Erasmo Smith Bottle Set: Set 1 Normal [facility] Comment on above: Performed By: #### B CID2 ####[facility] V[address] [address]Dr. Erasmo Smith Bottle: Anaerobic Normal [facility] Comment on above: Performed By: #### B CID2 ####[facility] Q[address]psiektvc[address] [address]Dr. Erasmo Smith C. neoformans/gattii Not detected Normal NOT DETECTED [facility] Comment on above: Performed By: #### B CID2 ####[facility] Mlsziywxsb[address] [place], [place] [address]Dr. Yiean Smith Naye albicans Not detected Normal NOT DETECTED [facility] Comment on above: Performed By: #### B CID2 ####[facility] Nxamwafbcr[address] [place], [place] [address]Dr. Yiean Smith Naye auris Not detected Normal NOT DETECTED The [facility] Comment on above: Performed By: #### B CID2 ####[facility] Remttxkpgb7[address] [place], [place] [address]Dr. Yiean Smith Naye glabrata Not detected Normal NOT DETECTED [facility] Comment on above: Performed By: #### B CID2 ####[facility] Obeczerosi9[address] [place], [place] [address]Dr. Yiean Smith Naye Krusei Not detected Normal NOT DETECTED The [facility] Comment on above: Performed By: #### B CID2 ####[facility] T[address]crydplc[address] [address]Dr. Yilan Smith Naye Parapsilosis Not detected Normal NOT DETECTED [facility] Comment on above: Performed By: #### B CID2 ####[facility] Xpiorystxf501[address] [place], [place] [address]Dr. Yiean Smith Naye Tropicalis Not detected Normal NOT DETECTED [facility] Comment on above: Performed By: #### B CID2 ####[facility] Cfrtqpvscp2[address] [place], [place] [address]Dr. Erasmo Smith CTX-M Resistant Gene Not Applicable Normal NOT DETECTE D [facility] Comment on above: Performed By: #### B CID2 ####[facility] Ftwzkpmuia6601[address] [place], [place] [address]Dr. Erasmo Smith E. Cloacae complex Not detected Normal NOT DETECTED [facility] Comment on above: Performed By: #### B CID2 ####[facility] Xxjvedenoo101[address] [place], [place] [address]Dr. Erasmo Smith E. faecalis Not detected Normal NOT DETECTED [facility] Comment on above: Performed By: #### B CID2 ####[facility] Rfaaacrflf457[address] [place], [place] [address]Dr. Erasmo Smith E. faecium Not detected Normal NOT DETECTED The [facility] Comment on above: Performed By: #### B CID2 ####[facility] Qdxktolocw6449[address] [place], [place] [address]Dr. Erasmo Smith Enterobacteriaceae Detected Critically abnormal NOT DETECTED [facility] Comment on above: Performed By: #### B CID2 ####[facility] Wihtlijgxs87[address] [place], [place] [address]Dr. Erasmo Smith Escherichia coli Detected Critically abnormal NOT DETECTED [facility] Comment on above: Performed By: #### B CID2 ####[facility] Ukpbxlqhsz1890[address] [place], [place] [address]Dr. Erasmo Smith H. influenzae Not detected Normal NOT DETECTED [facility] Comment on above: Performed By: #### B CID2 ####[facility] Wysmppqtmt63[address] [place], [place] [address]Dr. Erasmo Smith IMP Resistant Gene Not Applicable Normal NOT DETECTED [facility] Comment on above: Performed By: #### B CID2 ####[facility] Tgibuvtqyf2936[address] [place], [place] [address]Dr. Erasmo Smith K. oxytoca Not detected Normal NOT DETECTED The [facility] Comment on above: Performed By: #### B CID2 ####[facility] Osgnppswft1375[address] [place], [place] [address]Dr. Erasmo Smith K. pneumoniae Not detected Normal NOT DETECTED [facility] Comment on above: Performed By: #### B CID2 ####[facility] Nicizyhstb286[address] [place], [place] [address]Dr. Erasmo Smith Klebsiella aerogenes Not detected Normal NOT DETECTED [facility] Comment on above: Performed By: #### B CID2 ####[facility] Kkrqegojiu320[address] [place], [place] [address]Dr. Erasmo Smith KPC Resistant Gene Not detected Normal NOT DETECTED [facility] Comment on above: Performed By: #### B CID2 ####[facility] Pexfslyklk722[address] [place], [place] [address]Dr. Erasmo Smith List. monocytogenes Not detected Normal NOT DETECTED [facility] Comment on above: Performed By: #### B CID2 ####[facility] Tqhwsexmmn556083 [address] [place], [place] [address]Dr. Erasmo Smith Mcr-1 Resistant Gene Not Applicable Normal NOT DETECTE D [facility] Comment on above: Performed By: #### B CID2 ####[facility] Ibjwilpqmb853983 [address] [place], [place] [address]Dr. Erasmo Smith mecA/C Not Applicable Normal NOT DETECTED [facility] Comment on above: Performed By: #### B CID2 ####[facility] Kcympbwttf0890[address] [place], [place] [address]Dr. Erasmo Smith mecA/C MREJ Not Applicable Normal NOT DETECTED [facility] Comment on above: Performed By: #### B CID2 ####[facility] Ifeschoqkn244[address] [place], [place] [address]Dr. Erasmo Smith N. meningitidis Not detected Normal NOT DETECTED [facility] Comment on above: Performed By: #### B CID2 ####[facility] Tnvunbsggk6[address] [place], [place] [address]Dr. Erasmo Smith NDM Resistant Gene Not Applicable Normal NOT DETECTED [facility] Comment on above: Performed By: #### B CID2 ####[facility] Oaielybyxi744[address] [place], [place] [address]Dr. Erasmo Smith Oxa-48-like Not Applicable Normal NOT DETECTED [facility] Comment on above: Performed By: #### B CID2 ####[facility] Asoflgwkgl688[address] [place], [place] [address]Dr. Erasmo Smith Proteus Not detected Normal NOT DETECTED The [facility] Comment on above: Performed By: #### B CID2 ####[facility] Houpnqtzmj7[address] [place], [place] [address]Dr. Erasmo Smith Pseud. aeruginosa Not detected Normal NOT DETECTED [facility] Comment on above: Performed By: #### B CID2 ####[facility] Wdhfujrmfk7385[address] [place], [place] [address]Dr. Erasmo Smith S. maltophilia Not detected Normal NOT DETECTED The [facility] Comment on above: Performed By: #### B CID2 ####[facility] Ocrlonguzd0420[address] [place], [place] [address]Dr. Erasmo Smith Salmonella Not detected Normal NOT DETECTED The [facility] Comment on above: Performed By: #### B CID2 ####[facility] Lfglafrfpv217[address] [place], [place] [address]Dr. Erasmo Smith Seratia marcescens Not detected Normal NOT DETECTED [facility] Comment on above: Performed By: #### B CID2 ####[facility] Moicnnuajv068[address] [place], [place] [address]Dr. Erasmo Smith Site: l ac Normal [facility] Comment on above: Performed By: #### B CID2 ####[facility] Rqtyfhzguq056[address] [place], [place] [address]Dr. Erasmo Smith Staph. aureus Not detected Normal NOT DETECTED [facility] Comment on above: Performed By: #### B CID2 ####[facility] Odftgtovou297[address] [place], [place] [address]Dr. Erasmo Smith Staph. epidermidis Not detected Normal NOT DETECTED [facility] Comment on above: Performed By: #### B CID2 ####[facility] Rditkeqvek873883 [address] [place], [place] [address]Dr. Erasmo Smith Staph. lugdunensis Not detected Normal NOT DETECTED [facility] Comment on above: Performed By: #### B CID2 ####[facility] [address] [address]Dr. Erasmo Smith Staphylococcus Not detected Normal NOT DETECTED [facility] Comment on above: Performed By: #### B CID2 ####[facility] Vttrbyizlw[address] [address]Dr. Erasmo Smith Strep. agalactiae Not detected Normal NOT DETECTED [facility] Comment on above: Performed By: #### B CID2 ####[facility] Orndnwgnpw[address] [address]Dr. Erasmo Smith Strep. pneumoniae Not detected Normal NOT DETECTED [facility] Comment on above: Performed By: #### B CID2 ####[facility] Rzthikbfzu906[address] [place], [place] [address]Dr. Erasmo Smith Strep. pyogenes Not detected Normal NOT DETECTED [facility] Comment on above: Performed By: #### B CID2 ####[facility] Ahzrzrihmc0725[address] [place], [place] [address]Dr. Erasmo Smith Streptococcus Not detected Normal NOT DETECTED [facility] Comment on above: Performed By: #### B CID2 ####[facility] Jqiazfdgiv3379[address] [place], [place] [address]Dr. Erasmo Smith Fran/B Resist. Gene Not detected Normal NOT DETECTED [facility] Comment on above: Performed By: #### B CID2 ####[facility] Gevnzbxqyg3269[address] [place], [place] [address]Dr. Erasmo Smith VIM Resistant Gene Not Applicable Normal NOT DETECTED [facility] Comment on above: Performed By: #### B CID2 ####[facility] Ijpdgrfpba3732[address] [place], [place] [address]Dr. Erasmo Smith BNPon 12-02-2022 Natriuretic peptide B (Bld) [Mass/Vol] 1059.0 pg/mL Normal <=1,800.0 [facility] Comment on above: Performed By: #### B MEDIA MARKETING MANAGER #### [facility] [address] [address] [address] Erasmo Smith CBC AUTO DIFFon 12-02-2022 BASO # 0.0 103/ul Normal 0.0-0.1 [facility] Comment on above: Performed By: #### C BC ####[facility] Ybkxvvbkmh697[address] [place], [place] [address]DrMeena Smith Basophils/100 WBC (Bld) 0.2 % Normal 0.2-2.0 [facility] Comment on above: Performed By: #### C BC ####[facility] Tvfnezhwcd8[address] [place], [place] [address]DrMeena Smith EO # 0.0 103/ul Normal 0.0-0.7 [facility] Comment on above: Performed By: #### C BC ####[facility] Dhxtuzpqiu7205[address] [place], [place] [address]DrMeena Smith Eosinophils/100 WBC (Bld) 0.0 % Critically low 0.9-7.0 [facility] Comment on above: Performed By: #### C BC ####[facility] Ivupgjrzwj0975[address] [place], [place] [address]DrMeena Smith Erythrocyte distribution width (RBC) [Ratio] 17.3 % Critically high 11.0-15.0 [facility] Comment on above: Performed By: #### C BC ####[facility] Yicmizfyuy312[address] [place], [place] [address]DrMeena Smith Hematocrit (Bld) [Volume fraction] 31.4 % Critically low 36.0-48.0 [facility] Comment on above: Performed By: #### C BC ####[facility] Hbsvskbque64[address] [place], [place] [address]DrMeena Smith Hemoglobin (Bld) [Mass/Vol] 10.0 g/dL Critically low 12.0-16.0 [facility] Comment on above: Performed By: #### C BC ####[facility] Bpvntydtnp7[address] [place], [place] [address]DrMeena Smith IG # 0.06 10e3/ul Critically high 0.00-0.[address] [facility] Comment on above: Performed By: #### C BC ####[facility] [address] [id number]. Erasmo Smith IG % 0.4 % Normal 0.0-0.5 [facility] Comment on above: Performed By: #### C BC ####[facility] Jqvojbwajs6817 [place], [place] [address]Ln. Erasmo Smith LYMPH # 1.3 103/ul Normal 1.2-3.8 [facility] Comment on above: Performed By: #### C BC ####[facility] Lit[address]hoquj[address] [phone]. Erasmo Smith Lymphocytes/100 WBC (Bld) 8.1 % Critically low 20.5-60.0 [facility] Comment on above: Performed By: #### C BC ####[facility] [address] [id number]. Erasmo Smith MANUAL DIFF REQ NO Normal [facility] Comment on above: Performed By: #### C BC ####[facility] G[address]peldfz[address] [phone]. Erasmo Smith MCH (RBC) [Entitic mass] 25.6 pg Critically low 26.7-34.0 [facility] Comment on above: Performed By: #### C BC ####[facility] H[address]xygnegca[address] [phone]. Erasmo Smith MCHC (RBC) [Mass/Vol] 31.8 g/dL Normal 29.9-35.2 [facility] Comment on above: Performed By: #### C BC ####[facility] Ey[address]cktqej[address] [phone]. Erasmo Smith MCV (RBC) [Entitic vol] 80.3 fL Critically low 81.0-99.0 [facility] Comment on above: Performed By: #### C BC ####[facility] [address]al[address] [phone]. Erasmo Smith MONO # 0.6 103/ul Normal 0.3-0.8 [facility] Comment on above: Performed By: #### C BC ####[facility] [address]osqnbelp[address] [phone]. Erasmo Smith Monocytes/100 WBC (Bld) 3.7 % Normal 1.7-12.0 [facility] Comment on above: Performed By: #### C BC ####[facility] F[address]nsqj[address] [phone]. Erasmo Smith NEUT # 14.5 103/ul Critically high 1.4-6.5 [facility] Comment on above: Performed By: #### C BC ####[facility] D[address]faeqjqi[address] [phone]. Erasmo Smith Neutrophils/100 WBC (Bld) 87.6 % Critically high 43.0-75.0 [facility] Comment on above: Performed By: #### C BC ####[facility] L[address]incpgx[address] [phone]. Erasmo Smith Platelet mean volume (Bld) [Entitic vol] 10.0 fL Normal 9.5-13.5 [facility] Comment on above: Performed By: #### C BC ####[facility] Ltijnxpnea[address] [phone]. Erasmo Smith PLT 206 103/ul Normal 150-450 [facility] Comment on above: Performed By: #### C BC ####[facility] [address]farusuq[address] [phone]. Erasmo Smith RBC 3.91 106/ul Critically low 4.20-5.40 [facility] Comment on above: Performed By: #### C BC ####[facility] Y[address]vnz[address] [phone]. Erasmo Smith WBC 16.5 103/ul Critically high 4.0-11.0 [facility] Comment on above: Performed By: #### C BC ####[facility] [address]ztmx[address] [phone]. Erasmo Smith ECHOCARDIO M/2D COMPLETEon 0 12-02-2022 ECHOCARDIO M/2D COMPLETE Patient: BREANN STARKS Exam Date: 12/02/2022 : 1945 Gender:F Ordering : KAYLEY HOLMAN . Admission #: [id number] Family : DR LUISANA FISHER . Order #: [id number] CLICK HERE TO VIEW EXAM ECHOCARDIOGRAM REPORT [...] Salazar M.D. on 12/02/2022 at 21:58 Normal [facility] MAGNESIUMon 12-02-2022 Magnesium [Mass/Vol] 2.0 mg/dL Normal 1.8-2.4 [facility] Comment on above: Performed By: #### B MEDIA MARKETING MANAGER #### [facility] [address] [place] [address] Dr. Erasmo Smith PROF 14(COMP METB)on 023 Albumin [Mass/Vol] 2.7 g/dL Critically low 3.4-5.0 [facility] Comment on above: Performed By: #### B MEDIA MARKETING MANAGER #### [facility] [address] [address] [address] Erasmo Smith Albumin/Globulin [Mass ratio] 0.6 {ratio} Normal [facility] Comment on above: Performed By: #### B MEDIA MARKETING MANAGER #### [facility] [address] [place] [address] Dr. Erasmo Smith ALP [Catalytic activity/Vol] 128 U/L Critically high 46-116 [facility] Comment on above: Performed By: #### B MEDIA MARKETING MANAGER #### [facility] [address] [address] [address] Erasmo Smith ALT [Catalytic activity/Vol] 34 U/L Normal 14-59 [facility] Comment on above: Performed By: #### B MEDIA MARKETING MANAGER #### [facility] [address] [place] [address] Dr. Erasmo Smith Anion gap [Moles/Vol] 10.6 mmol/L Normal [facility] Comment on above: Performed By: #### B MEDIA MARKETING MANAGER #### [facility] [address] [place] [address] Dr. Erasmo Smith AST [Catalytic activity/Vol] 27 U/L Normal 15-37 [facility] Comment on above: Performed By: #### B MEDIA MARKETING MANAGER #### [facility] [address] [place] [address] Dr. Erasmo Smith Bilirubin [Mass/Vol] 0.5 mg/dL Normal 0.2-1.0 [facility] Comment on above: Performed By: #### B MEDIA MARKETING MANAGER #### [facility] [address] [place] [address] Dr. Erasmo Smith Calcium [Mass/Vol] 8.4 mg/dL Critically low 8.5-10.1 [facility] Comment on above: Performed By: #### B MEDIA MARKETING MANAGER #### [facility] [address] [place] [address] Dr. Erasmo Smith Chloride [Moles/Vol] 104 mmol/L Normal 98-107 [facility] Comment on above: Performed By: #### B MEDIA MARKETING MANAGER #### [facility] [address] [place] [address] Dr. Earsmo Smith CO2 [Moles/Vol] 26.2 mmol/L Normal 21.0-32.0 [facility] Comment on above: Performed By: #### B MEDIA MARKETING MANAGER #### [facility] [address] [place] [address] Dr. Erasmo Smith Creatinine [Mass/Vol] 0.52 mg/dL Critically low 0.55-1.02 [facility] Comment on above: Performed By: #### B MEDIA MARKETING MANAGER #### [facility] [address] [place] [address] Dr. Erasmo Smith EGFR-AF HONDURAN >60 Normal >=60 [facility] Comment on above: Performed By: #### B MEDIA MARKETING MANAGER #### [facility] [address] [address] [address] Erasmo Smith EGFR-NON AF HONDURAN >60 Normal >=60 [facility] Comment on above: Performed By: #### B MEDIA MARKETING MANAGER #### [facility] [address] [address] [address] Erasmo Smith Globulin (S) [Mass/Vol] 4.3 g/dL Normal [facility] Comment on above: Performed By: #### B MEDIA MARKETING MANAGER #### [facility] [address] [address] [address] Erasmo Smith Glucose [Mass/Vol] 135 mg/dL Critically high 74-106 [facility] Comment on above: Performed By: #### B MEDIA MARKETING MANAGER #### [facility] [address] [address] [address] Erasmo Smith Potassium [Moles/Vol] 3.8 mmol/L Normal 3.5-5.1 [facility] Comment on above: Performed By: #### B MEDIA MARKETING MANAGER #### [facility] [address] [place] [address] Dr. Erasmo Smith Protein [Mass/Vol] 7.0 g/dL Normal 6.4-8.2 [facility] Comment on above: Performed By: #### B MEDIA MARKETING MANAGER #### [facility] [address] [address] [address] Erasmo Smith Sodium [Moles/Vol] 137 mmol/L Normal 136-[address] [facility] Comment on above: Performed By: #### B MEDIA MARKETING MANAGER #### [facility] [address] [address] [address] Erasmo Smith Urea nitrogen [Mass/Vol] 16.0 mg/dL Normal 7.0-18.0 [facility] Comment on above: Performed By: #### B MEDIA MARKETING MANAGER #### [facility] [address] [address] [address] Erasmo Smith Urea nitrogen/Creatinine [Mass ratio] 30.8 mg/mg Normal [facility] Comment on above: Performed By: #### B MEDIA MARKETING MANAGER #### [facility] [address] [address] [address] Erasmo Smith PROTIMEon 12-02-2022 INR Coag (PPP) [Relative time] 4.39 {INR} Critically high [facility] Comment on above: Performed By: #### P T #### [facility] [address] [address] [address] Erasmo Smith INR GUIDELINES SEE BELOW Normal [facility] Comment on above: Result Comment: ABNER RED INR: 2.0 - 3.0 CONDITIONS NOT LISTED BELOW 2.5 - 3.5 FOR PROSTHETIC HEART VALVE REPLACEMENT 2.5 - 3.5 RECURRENT THROMBOSIS Performed By: #### P T #### [facility] [address] [address] [address] Erasmo Smith PT Coag (PPP) [Time] 42.8 s Critically high 9.0-11.6 [facility] Comment on above: Performed By: #### P T #### [facility] [address] [address] [address] Erasmo Smith UA RANDOM W/MICROSCOPICon BACTERIA NONE SEEN Normal NONE SEEN [facility] Comment on above: Performed By: #### U AMIC ####[facility] [address] [address]DreMena Smith Bilirubin Ql (U) Negative Normal NEGATIVE [facility] Comment on above: Performed By: #### U AMIC ####[facility] [address] [address]DrMeena Smith CAST NONE SEEN Normal NONE SEEN [facility] Comment on above: Performed By: #### U AMIC ####[facility] [address] [address]DrMeena Smith Clarity (U) CLEAR Normal CLEAR [facility] Comment on above: Performed By: #### U AMIC ####[facility] [address] [address]DrMeena Smith Color (U) YELLOW Normal YELLOW [facility] Comment on above: Performed By: #### U AMIC ####[facility] [address] [address]Dr. Erasmo Smith Crystals LM Nom (Urine sed) NONE SEEN Normal NONE SEEN [facility] Comment on above: Performed By: #### U AMIC ####[facility] [address] [phone]. Erasmo Smith Epithelial cells LM Ql (Urine sed) RARE Normal NONE SEEN /RARE [facility] Comment on above: Performed By: #### U AMIC ####[facility] [address] [address]Dr. Erasmo Smith Glucose Ql (U) Negative Normal NEGATIVE [facility] Comment on above: Performed By: #### U AMIC ####[facility] [address] [address]Dr. Erasmo Smith Hemoglobin Ql (U) SMALL Abnormal NEGATIVE [facility] Comment on above: Performed By: #### U AMIC ####[facility] [address] [place], [place] [address]Dr. Erasmo Smith Ketones Ql (U) 15 mg/dl Abnormal NEGATIVE [facility] Comment on above: Performed By: #### U AMIC ####[facility] [address] [place], [place] [address]Dr. Erasmo Smith LEUKOCYTES Negative Normal NEGATIVE [facility] Comment on above: Performed By: #### U AMIC ####[facility] [address] [place], [place] [address]Dr. Heavenlan Smith MUCOUS NONE SEEN Normal NONE SEEN [facility] Comment on above: Performed By: #### U AMIC ####[facility] [address] [address]Dr. Erasmo Smith Nitrite Ql (U) Negative Normal NEGATIVE [facility] Comment on above: Performed By: #### U AMIC ####[facility] [address] [address]Dr. Erasmo Smith pH (U) 6.0 [pH] Normal 5-9 [facility] Comment on above: Performed By: #### U AMIC ####[facility] [address] [phone]. Erasmo Smith RBC 0-2 Normal 0-2 [facility] Comment on above: Performed By: #### U AMIC ####[facility] [address] [phone]. Erasmo Smith SPEC GRAVITY 1.025 Normal 1.005-<=1.02 5 [facility] Comment on above: Performed By: #### U AMIC ####[facility] [address] [phone]. Erasmo Smith UA PROTEIN TRACE Normal NEGATIVE/ TRACE [facility] Comment on above: Performed By: #### U AMIC ####[facility] [address] [phone]. Erasmo Smith Urobilinogen Qn (U) 4 {Shraddha'U}/dL Abnormal 0.2 - 1.0 [facility] Comment on above: Performed By: #### U AMIC ####[facility] [address] [phone]. Erasmo Smith WBC 0-2 Abnormal NONE SEEN [facility] Comment on above: Performed By: #### U AMIC ####[facility] [address] [phone]. Erasmo Smith CARDIAC ROSA ELENA 3-6on 3 CK [Catalytic activity/Vol] 53 U/L Normal 26-192 [facility] Comment on above: Performed By: #### C MREP #### [facility] [address] [address] [address] Erasmo Smith CK.MB [Mass/Vol] 0.90 ng/mL Normal <=3.60 [facility] Comment on above: Performed By: #### C MREP #### [facility] [address] [address] [address] Erasmo Smith HSTROP 116.7 pg/mL Critically high 4.0-51.3 [facility] Comment on above: Result Comment: CUT- OFF POINTS HAVE BEEN ESTABLISHED BASED ON THE FOURTH UNIVERSAL DEFINITIONS OF MYOCARDIAL INFARCTION. THE UPPER REFERENCE LIMIT (URL) OF TROPONIN, DEFINED THE 99TH PERCENTILE OF cTnI DISTRIBUTION IN A REFERENCE POPULATION, HAS BEEN CONFIRMED THE DECISION THRESHOLD FOR [place] DIAGNOSIS. Performed By: #### C MREP #### [facility] [address] [place] [address] Dr. Erasmo Smith CK [Catalytic activity/Vol] 47 U/L Normal 26-192 [facility] Comment on above: Performed By: #### B MEDIA MARKETING MANAGER #### [facility] [address] [place] [address] Dr. Erasmo Smith CK.MB [Mass/Vol] 1.00 ng/mL Normal <=3.60 [facility] Comment on above: Performed By: #### B MEDIA MARKETING MANAGER #### [facility] [address] [place] [address] Dr. Erasmo Smith HSTROP 154.3 pg/mL Critically high 4.0-51.3 [facility] Comment on above: Result Comment: CUT- OFF POINTS HAVE BEEN ESTABLISHED BASED ON THE FOURTH UNIVERSAL DEFINITIONS OF MYOCARDIAL INFARCTION. THE UPPER REFERENCE LIMIT (URL) OF TROPONIN, DEFINED THE 99TH PERCENTILE OF cTnI DISTRIBUTION IN A REFERENCE POPULATION, HAS BEEN CONFIRMED THE DECISION THRESHOLD FOR KS DIAGNOSIS. Performed By: #### B MEDIA MARKETING MANAGER #### [facility] [address] [place] [address] Dr. Erasmo Smith CBC W MANUAL DIFFon 12-02-19 23 ATYPICAL LYMPH # Normal [facility] Comment on above: Performed By: #### C ANGELA #### [facility] [address] [place] [address] Dr. Erasmo Smith ATYPICAL LYMPH % Normal [facility] Comment on above: Performed By: #### C ANGELA #### [facility] [address] [place] [address] Dr. Erasmo Smith BAND # 0.6 103/ul Critically high 0.0-0.3 [facility] Comment on above: Performed By: #### C ANGELA #### [facility] [address] [place] [address] Dr. Erasmo Smith BAND % 3 % Normal 0-5 [facility] Comment on above: Performed By: #### C BCBLAISE #### [facility] [address] [address] [address] Erasmo Smith BASOM # 0.00 103/ul Normal 0.00-0.10 [facility] Comment on above: Performed By: #### C BCBLAISE #### [facility] [address] [place] [address] Dr. Erasmo Smith BASOM % 0.0 % Critically low 0.2-2.0 [facility] Comment on above: Performed By: #### C BCBLAISE #### [facility] [address] [place] [address] Dr. Erasmo Smith BLAST # Normal [facility] Comment on above: Performed By: #### C ANGELA #### [facility] [address] [place] [address] Dr. Erasmo Smith BLAST % Normal [facility] Comment on above: Performed By: #### C ANGELA #### [facility] [address] [place] [address] Dr. Erasmo Smith CORRECTED WBC Normal 4.0-11.0 [facility] Comment on above: Performed By: #### C BCBLAISE #### [facility] [address] [place] [address] Dr. Erasmo Smith EOS # 0.19 103/ul Normal 0.00-0.70 [facility] Comment on above: Performed By: #### C ANGELA #### [facility] [address] [place] [address] Dr. Erasmo Smith EOS% 1.0 % Normal 0.9-7.0 [facility] Comment on above: Performed By: #### C BCBLAISE #### [facility] [address] [place] [address] Dr. Erasmo Smith HCT 32.7 % Critically low 36.0-48.0 [facility] Comment on above: Performed By: #### C ANGELA #### [facility] [address] [place] [address] Dr. Erasmo Smith HGB 10.5 g/dl Critically low 12.0-16.0 [facility] Comment on above: Performed By: #### C ANGELA #### [facility] [address] [address] [address] Erasmo Smith LYMPHM # 0.76 103/ul Critically low 1.20-3.80 [facility] Comment on above: Performed By: #### C ANGELA #### [facility] [address] [address] [address] Erasmo Smith LYMPHM% 4.0 % Critically low 20.5-60.0 [facility] Comment on above: Performed By: #### C ANGELA #### [facility] [address] [address] [address] Erasmo Smith MCH 25.9 pg Critically low 26.7-34.0 [facility] Comment on above: Performed By: #### C ANGELA #### [facility] [address] [address] [address] Erasmo Smith MCHC 32.1 g/dl Normal 29.9-35.2 [facility] Comment on above: Performed By: #### C ANGELA #### [facility] [address] [address] [address] Erasmo Smith MCV 80.5 fL Critically low 81.0-99.0 [facility] Comment on above: Performed By: #### C ANGELA #### [facility] [address] [address] [address] Erasmo Smith METAMYELOCYTE # Normal [facility] Comment on above: Performed By: #### C AGNELA #### [facility] [address] [address] [address] Erasmo Smith METAMYELOCYTE % Normal [facility] Comment on above: Performed By: #### C ANGELA #### [facility] [address] [address] [address] Erasmo Smith MONOM# 1.14 103/ul Critically high 0.30-0.80 [facility] Comment on above: Performed By: #### C ANGELA #### [facility] [address] [address] [address] Erasmo Smith MONOM% 6.0 % Normal 1.7-12.0 [facility] Comment on above: Performed By: #### C ANGELA #### [facility] [address] [address] [address] Erasmo Smith MPV 9.4 fL Critically low 9.5-13.5 [facility] Comment on above: Performed By: #### C ANGELA #### [facility] [address] [address] [address] Erasmo Smith MYELOCYTE # Normal [facility] Comment on above: Performed By: #### C ANGELA #### [facility] [address] [place] [address] Dr. Erasmo Smith MYELOCYTE % Normal [facility] Comment on above: Performed By: #### C ANGELA #### [facility] [address] [place] [address] Dr. Erasmo Smith NRBC Normal [facility] Comment on above: Performed By: #### C ANGELA #### [facility] [address] [place] [address] Dr. Erasmo Smith PLT 195 103/ul Normal 150-450 [facility] Comment on above: Performed By: #### C ANGELA #### [facility] [address] [place] [address] Dr. Erasmo Smith RBC 4.06 106/ul Critically low 4.20-5.40 [facility] Comment on above: Performed By: #### C ANGELA #### [facility] [address] [place] [address] Dr. Erasmo Smith RDW 17.7 % Critically high 11.0-15.0 [facility] Comment on above: Performed By: #### C ANGELA #### [facility] [address] [place] [address] Dr. Erasmo Smith SEG # 16.34 103/ul Critically high 1.40-6.50 [facility] Comment on above: Performed By: #### C ANGELA #### [facility] [address] [place] [address] Dr. Erasmo Smith SEG % 86.0 % Critically high 43.0-75.0 [facility] Comment on above: Performed By: #### Yamile MILLER #### [facility] [address], [place] [address] Dr. Erasmo Smith WBC 19.0 103/ul Critically high 4.0-11.0 [facility] Comment on above: Performed By: #### Yamile MILLER #### [facility] [address], [place] [address] HEAD WO CONon [...] Date: 2022 14:50 Normal [facility] CULTURE BLOODon 2022 Microscopic examination of blood, culture Culture Observations: Aerobic and Anaerobic bottle positive. BCID: E. Coli Culture Observations: Refer to for VIOLET. Isolate 1 Escherichia coli Growth of Normal [facility] Comment on above: Performed By: #### B LDCX2 ####[facility] [address] [place], [place] [address]Dr. Erasmo Smith Covid-19 PCR (CVDTB)on 11-11 SARS-CoV-2 (COVID-19) RNA EMILY+probe Ql (Unsp spec) Not detected Normal NOT DETECTED [facility] Comment on above: Result Comment: When [...] for this test is supported by the [place] of [employer] and Human Service's declaration that [...] By: #### C MREP #### [facility] [address] [address] [address] Erasmo Smith LACTATE/LACTIC ACIDon 2022 Lactate [Moles/Vol] 1.2 mmol/L Normal 0.4-2.0 [facility] [place] [facility] Comment on above: Performed By: #### L ACT ####[facility] [address] [address]Dr. Erasmo Smith PH VENOUS BLOODon 2022 PCO2 VENOUS 37.8 mmHg Critically low 40.0-52.0 [facility] Comment on above: Performed By: #### P HVEN ####[facility] [address] [phone]. Erasmo Smith pH VENOUS 7.417 Normal 7.330-7.430 [facility] Comment on above: Performed By: #### P HVEN ####[facility] [address] [phone]. Erasmo Smith PROF 14(COMP METB)on 023 Albumin [Mass/Vol] 3.1 g/dL Critically low 3.4-5.0 [facility] [place] Comment on above: Performed By: #### H STROPN, CMP ####[facility] [address] [address]DrMeena Smith Albumin/Globulin [Mass ratio] 0.8 {ratio} Normal [facility] Comment on above: Performed By: #### H STROPN, CMP ####[facility] [address] [phone]. Erasmo Smith ALP [Catalytic activity/Vol] 194 U/L Critically high 46-116 [facility] Comment on above: Performed By: #### H STROPN, CMP ####[facility] [address] [phone]. Erasmo Smith ALT [Catalytic activity/Vol] 37 U/L Normal 14-59 [facility] Comment on above: Performed By: #### H STROPN, CMP ####[facility] [address] [phone]. Erasmo Luis Anion gap [Moles/Vol] 14.6 mmol/L Normal [facility] Comment on above: Performed By: #### H ALEXSANDER, CMP ####[facility] [address] [address]Dr. Heavenean Smith AST [Catalytic activity/Vol] 32 U/L Normal 15-37 [facility] Comment on above: Performed By: #### H ALEXSANDER, CMP ####[facility] [address] [address]Dr. Erasmo Smith Bilirubin [Mass/Vol] 1.0 mg/dL Normal 0.2-1.0 [facility] Comment on above: Performed By: #### H STROPN, CMP ####[facility] [address] [place], [place] [address]Dr. Erasmo Luis Calcium [Mass/Vol] 8.9 mg/dL Normal 8.5-10.1 [facility] Comment on above: Performed By: #### H STROPN, CMP ####[facility] [address] [address]Dr. Heavenean Smith Chloride [Moles/Vol] 103 mmol/L Normal 98-107 [facility] Comment on above: Performed By: #### H STROPN, CMP ####[facility] [address] [address]Dr. Erasmo Smith CO2 [Moles/Vol] 23.6 mmol/L Normal 21.0-32.0 [facility] Comment on above: Performed By: #### H STROPN, CMP ####[facility] [address] [address]Dr. Erasmo Smith Creatinine [Mass/Vol] 0.69 mg/dL Normal 0.55-1.02 [facility] Comment on above: Performed By: #### H STROPN, CMP ####[facility] [address] [address]Dr. Erasmo Smith EGFR-AF HONDURAN >60 Normal >=60 [facility] Comment on above: Performed By: #### H STROPN, CMP ####[facility] [address] [address]Dr. Erasmo Smith EGFR-NON AF HONDURAN >60 Normal >=60 [facility] Comment on above: Performed By: #### H STROPN, CMP ####[facility] [address] [address]Dr. Erasmo Smith Globulin (S) [Mass/Vol] 4.1 g/dL Normal [facility] Comment on above: Performed By: #### H STROPN, CMP ####[facility] [address] [address]Dr. Erasmo Smith Glucose [Mass/Vol] 121 mg/dL Critically high 74-106 [facility] Comment on above: Performed By: #### H STROPN, CMP ####[facility] [address] [address]Dr. Erasmo Smith Potassium [Moles/Vol] 3.2 mmol/L Critically low 3.5-5.1 [facility] Comment on above: Performed By: #### H STROPN, CMP ####[facility] [address] [address]Dr. Erasmo Smith Protein [Mass/Vol] 7.2 g/dL Normal 6.4-8.2 [facility] Comment on above: Performed By: #### H STROPN, CMP ####[facility] [address] [address]Dr. Erasmo Smith Sodium [Moles/Vol] 138 mmol/L Normal 136-145 [facility] Comment on above: Performed By: #### H ALEXSANDER, CMP ####[facility] [address] [address]Dr. Erasmo Smith Urea nitrogen [Mass/Vol] 17.0 mg/dL Normal 7.0-18.0 [facility] Comment on above: Performed By: #### H ALEXSANDER, CMP ####[facility] [address] [address]DrMeena Smith Urea nitrogen/Creatinine [Mass ratio] 24.6 mg/mg Normal [facility] Comment on above: Performed By: #### H ALEXSANDER, CMP ####[facility] [address] [address]Dr. Erasmo Smith PROTIMEon 2022 INR Coag (PPP) [Relative time] 3.58 {INR} Normal [facility] Comment on above: Performed By: #### P T, PTT #### [facility] [address] [place] [address] Dr. Erasmo Smith INR GUIDELINES SEE BELOW Normal [facility] Comment on above: Result Comment: ABNER RED INR: 2.0 - 3.0 CONDITIONS NOT LISTED BELOW 2.5 - 3.5 FOR PROSTHETIC HEART VALVE REPLACEMENT 2.5 - 3.5 RECURRENT THROMBOSIS Performed By: #### P T, PTT #### [facility] [address] [address] [address] Erasmo Smith PT Coag (PPP) [Time] 35.3 s Critically high 9.0-11.6 [facility] Comment on above: Performed By: #### P T, PTT #### [facility] [address] [address] [address] Erasmo Smith PTTon 2022 aPTT Coag (Bld) [Time] 40.3 s Critically high 22.3-36. 2 [facility] Comment on above: Performed By: #### P T, PTT #### [facility] [address] [address] [address] Erasmo Smith TROPONIN, HIGH SENSITIVITYon 2022 HSTROP 194.7 pg/mL Critically high 4.0-51.3 [facility] Comment on above: Result Comment: CUT- OFF POINTS HAVE BEEN ESTABLISHED BASED ON THE FOURTH UNIVERSAL DEFINITIONS OF MYOCARDIAL INFARCTION. THE UPPER REFERENCE LIMIT (URL) OF TROPONIN, DEFINED THE 99TH PERCENTILE OF cTnI DISTRIBUTION IN A REFERENCE POPULATION, HAS BEEN CONFIRMED THE DECISION THRESHOLD FOR [place] DIAGNOSIS. Performed By: #### C MREP #### [facility] [address] [address] [address] Erasmo Smith HSTROP 218.0 pg/mL Critically high 4.0-51.3 [facility] Comment on above: Result Comment: CUT- OFF POINTS HAVE BEEN ESTABLISHED BASED ON THE FOURTH UNIVERSAL DEFINITIONS OF MYOCARDIAL INFARCTION. THE UPPER REFERENCE LIMIT (URL) OF TROPONIN, DEFINED THE 99TH PERCENTILE OF cTnI DISTRIBUTION IN A REFERENCE POPULATION, HAS BEEN CONFIRMED THE DECISION THRESHOLD FOR KS DIAGNOSIS. Performed By: #### B MEDIA MARKETING MANAGER #### [facility] [address] [address] [address] Erasmo Smith XR CHEST 1 Von [...] by: HONG ALSTON Date: 2022 14:18 Normal [facility] Lab Reportson 11-30-2022 Lab Reports [id number]:[id number] Normal [facility] MG MAMM SCREEN 3D TOÑITO CADon 11-26-2022 MG MAMM SCREEN 3D TOÑITO CAD Patient: BREANN STARKS Exam Date: 11/26/2022 : 1945 Gender:F Ordering : DR LUISANA FISHER . Admission #: [id number] Family : Order #: [id number] CLICK HERE TO VIEW EXAM RADIOLOGY REPORT [...] No Treatments None Family Cancers None LOCATION: [facility] BREAST COMPOSITION: Heterogeneously dense,which may obscure [...] Delgado M.D. on 11/26/2022 at 14:13 Normal [facility] PROF 14(COMP METB)on 022 Albumin [Mass/Vol] 3.8 g/dL Normal 3.4-5.0 [facility] Comment on above: Performed By: #### C MREP #### [facility] [address] [address] [address] Erasmo Smith Albumin/Globulin [Mass ratio] 0.8 {ratio} Normal [facility] Comment on above: Performed By: #### C MREP #### [facility] [address] [address] [address] Erasmo Smith ALP [Catalytic activity/Vol] 102 U/L Normal 46-116 [facility] Comment on above: Performed By: #### C MREP #### [facility] [address] [address] [address] Erasmo Smith ALT [Catalytic activity/Vol] 47 U/L Normal 14-59 [facility] Comment on above: Performed By: #### C MREP #### [facility] [address] [address] [address] Erasmo Smith Anion gap [Moles/Vol] 12.5 mmol/L Normal [facility] Comment on above: Performed By: #### C MREP #### [facility] [address] [address] [address] Erasmo Smith AST [Catalytic activity/Vol] 36 U/L Normal 15-37 [facility] Comment on above: Performed By: #### C MREP #### [facility] [address] [address] [address] Erasmo Smith Bilirubin [Mass/Vol] 0.3 mg/dL Normal 0.2-1.0 [facility] Comment on above: Performed By: #### C MREP #### [facility] [address] [address] [address] Erasmo Smith Calcium [Mass/Vol] 8.9 mg/dL Normal 8.5-10.1 [facility] Comment on above: Performed By: #### C MREP #### [facility] [address] [address] [address] Erasmo Smith Chloride [Moles/Vol] 106 mmol/L Normal 98-107 [facility] Comment on above: Performed By: #### C MREP #### [facility] [address] [address] [address] Erasmo Smith CO2 [Moles/Vol] 26.9 mmol/L Normal 21.0-32.0 [facility] Comment on above: Performed By: #### C MREP #### [facility] [address] [address] [address] Erasmo Smith Creatinine [Mass/Vol] 0.79 mg/dL Normal 0.55-1.02 [facility] Comment on above: Performed By: #### C MREP #### [facility] [address] [address] [address] Erasmo Smith EGFR-AF HONDURAN >60 Normal >=60 [facility] Comment on above: Performed By: #### C MREP #### [facility] [address] [address] [address] Erasmo Smith EGFR-NON AF HONDURAN >60 Normal >=60 [facility] Comment on above: Performed By: #### C MREP #### [facility] [address] [address] [address] Erasmo Smith Globulin (S) [Mass/Vol] 4.6 g/dL Normal [facility] Comment on above: Performed By: #### C MREP #### [facility] [address] [address] [address] Erasmo Smith Glucose [Mass/Vol] 102 mg/dL Normal 74-106 [facility] Comment on above: Performed By: #### C MREP #### [facility] [address] [place] [address] Dr. Erasmo Smith Potassium [Moles/Vol] 4.4 mmol/L Normal 3.5-5.1 [facility] Comment on above: Performed By: #### C MREP #### [facility] [address] [place] [address] Dr. Erasmo Smith Protein [Mass/Vol] 8.4 g/dL Critically high 6.4-8.2 [facility] Comment on above: Performed By: #### C MREP #### [facility] [address] [place] [address] Dr. Erasmo Smith Sodium [Moles/Vol] 141 mmol/L Normal 136-[address] [facility] Comment on above: Performed By: #### C MREP #### [facility] [address] [place] [address] Dr. Erasmo Smith Urea nitrogen [Mass/Vol] 28.0 mg/dL Critically high 7.0-18.0 [facility] Comment on above: Performed By: #### C MREP #### [facility] [address] [place] [address] Dr. Erasmo Smith Urea nitrogen/Creatinine [Mass ratio] 35.4 mg/mg Normal [facility] Comment on above: Performed By: #### C MREP #### [facility] [address] [place] [address] Dr. Erasmo Smith CBC AUTO DIFFon 07-12-2022 BASO # 0.1 103/ul Normal 0.0-0.1 [facility] Comment on above: Performed By: #### B MEDIA MARKETING MANAGER #### [facility] [address] [address] [address] Erasmo Smith Basophils/100 WBC (Bld) 0.5 % Normal 0.2-2.0 [facility] Comment on above: Performed By: #### B MEDIA MARKETING MANAGER #### [facility] [address] [address] [address] Erasmo Smith EO # 0.2 103/ul Normal 0.0-0.7 [facility] Comment on above: Performed By: #### B MEDIA MARKETING MANAGER #### [facility] [address] [address] [address] Erasmo Smith Eosinophils/100 WBC (Bld) 2.5 % Normal 0.9-7.0 [facility] Comment on above: Performed By: #### B MEDIA MARKETING MANAGER #### [facility] [address] [address] [address] Erasmo Smith Erythrocyte distribution width (RBC) [Ratio] 17.2 % Critically high 11.0-15.0 [facility] Comment on above: Performed By: #### B MEDIA MARKETING MANAGER #### [facility] [address] [address] [address] Erasmo Smith Hematocrit (Bld) [Volume fraction] 35.0 % Critically low 36.0-48.0 [facility] Comment on above: Performed By: #### B MEDIA MARKETING MANAGER #### [facility] [address] [address] [address] Erasmo Smith Hemoglobin (Bld) [Mass/Vol] 11.3 g/dL Critically low 12.0-16.0 [facility] Comment on above: Performed By: #### B MEDIA MARKETING MANAGER #### [facility] [address] [address] [address] Erasmo Smith IG # 0.02 10e3/ul Normal 0.00-0.03 [facility] Comment on above: Performed By: #### B MEDIA MARKETING MANAGER #### [facility] [address] [place] [address] Dr. Erasmo Smith IG % 0.2 % Normal 0.0-0.5 [facility] Comment on above: Performed By: #### B MEDIA MARKETING MANAGER #### [facility] [address] [place] [address] Dr. Erasmo Smith LYMPH # 2.3 103/ul Normal 1.2-3.8 [facility] Comment on above: Performed By: #### B MEDIA MARKETING MANAGER #### [facility] [address] [place] [address] Dr. Erasmo Smith Lymphocytes/100 WBC (Bld) 25.4 % Normal 20.5-60.0 [facility] Comment on above: Performed By: #### B MEDIA MARKETING MANAGER #### [facility] [address] [place] [address] Dr. Erasmo Smith MANUAL DIFF REQ NO Normal [facility] Comment on above: Performed By: #### B MEDIA MARKETING MANAGER #### [facility] [address] [place] [address] Dr. Erasmo Smith MCH (RBC) [Entitic mass] 25.5 pg Critically low 26.7-34.0 [facility] Comment on above: Performed By: #### B MEDIA MARKETING MANAGER #### [facility] [address] [place] [address] Dr. Erasmo Smith MCHC (RBC) [Mass/Vol] 32.3 g/dL Normal 29.9-35.2 [facility] Comment on above: Performed By: #### B MEDIA MARKETING MANAGER #### [facility] [address] [place] [address] Dr. Erasmo Smith MCV (RBC) [Entitic vol] 78.8 fL Critically low 81.0-99.0 [facility] Comment on above: Performed By: #### B MEDIA MARKETING MANAGER #### [facility] [address] [place] [address] Dr. Erasmo Smith MONO # 0.7 103/ul Normal 0.3-0.8 [facility] Comment on above: Performed By: #### B MEDIA MARKETING MANAGER #### [facility] [address] [place] [address] Dr. Erasmo Smith Monocytes/100 WBC (Bld) 7.5 % Normal 1.7-12.0 [facility] Comment on above: Performed By: #### B MEDIA MARKETING MANAGER #### [facility] [address] [place] [address] Dr. Erasmo Smith NEUT # 5.9 103/ul Normal 1.4-6.5 [facility] Comment on above: Performed By: #### B MEDIA MARKETING MANAGER #### [facility] [address] [place] [address] Dr. Erasmo Smith Neutrophils/100 WBC (Bld) 63.9 % Normal 43.0-75.0 [facility] Comment on above: Performed By: #### B MEDIA MARKETING MANAGER #### [facility] [address] [place] [address] Dr. Erasmo Smith Platelet mean volume (Bld) [Entitic vol] 9.0 fL Critically low 9.5-13.5 [facility] Comment on above: Performed By: #### B MEDIA MARKETING MANAGER #### [facility] [address] [place] [address] Dr. Erasmo Smith PLT 305 103/ul Normal 150-450 [facility] Comment on above: Performed By: #### B MEDIA MARKETING MANAGER #### [facility] [address] [place] [address] Dr. Erasmo Smith RBC 4.44 106/ul Normal 4.20-5.40 [facility] Comment on above: Performed By: #### B MEDIA MARKETING MANAGER #### [facility] [address] [place] [address] Dr. Erasmo Smith WBC 9.2 103/ul Normal 4.0-11.0 [facility] Comment on above: Performed By: #### B MEDIA MARKETING MANAGER #### [facility] [address] [place] [address] CHEST WO CONon [...] by: PAULA DELGADO Date: 2022-05-27 15:27 Normal [facility] HEMOGLOBINon 04-20-2022 Hemoglobin (Bld) [Mass/Vol] 10.6 g/dL Critically low 12.0-16.0 [facility] Comment on above: Performed By: #### H GB ####[facility] [id number] [address]Dr. Erasmo Smith CULTURE SPUTUMon 04-02-2022 CULTURE SPUTUM Isolate 1 Pseudomonas aeruginosa Light growth of ORGANISM 1 Pseudomonas aeruginosa ANTIBIOTIC M.I.C RX STATUS Piperacillin/Tazobac saez 8 S F Ceftazidime 2 S F Imipenem 1 S F Amikacin <=2 S F Gentamicin <=1 S F Tobramycin <=1 S F Ciprofloxacin <=0.25 S F Levofloxacin 0.25 S F Normal [facility] Comment on above: Performed By: #### S PUTCX ####[facility] [address] [place], [place] [address]DaDr. Erasmo Smith CYTOLOGYon 03-30-2022 SENT TO REF LAB 03/31/22 Normal [facility] Comment on above: Performed By: #### C YTO #### [facility] [address], [place] [address] Dr. Erasmo Smith SPUTUM GRAM STAINon 03-30-20 22 COMMENTS Normal [facility] Comment on above: Performed By: #### B MEDIA MARKETING MANAGER #### [facility] [address] [address] [address] Erasmo Smith DIPHTHEROIDS Normal [facility] Comment on above: Performed By: #### B MEDIA MARKETING MANAGER #### [facility] [address] [address] [address] Erasmo Smith EPITHELIALS <25 Normal [facility] Comment on above: Performed By: #### B MEDIA MARKETING MANAGER #### [facility] [address] [address] [address] Erasmo Smith FUNGAL ELEMENTS Normal [facility] Comment on above: Performed By: #### B MEDIA MARKETING MANAGER #### [facility] [address] [address] [address] Erasmo Smith GRAM NEG BACILLI FEW [facility] Comment on above: Performed By: #### B MEDIA MARKETING MANAGER #### [facility] [address] [address] [address] Erasmo CINTRON NEG DIPPLOCOCCI [facility] Comment on above: Performed By: #### B MEDIA MARKETING MANAGER #### [facility] [address] [address] [address] Erasmo Smith GRAM POS BACILLI [facility] Comment on above: Performed By: #### B MEDIA MARKETING MANAGER #### [facility] [address] [address] [address] Erasmo Smith GRAM POSITIVE COCCI MANY Normal [facility] [place] [facility] Comment on above: Performed By: #### B MEDIA MARKETING MANAGER #### [facility] [address] [address] [address] Erasmo Smith WBC (Bld) [#/Vol] 10*3/uL Normal [facility] Comment on above: Performed By: #### B MEDIA MARKETING MANAGER #### [facility] [address] [address] [address] Erasmo Smith SPUTUM CULTUREon 03-01-2022 Epithelial cells LM Ql (Urine sed) Few Normal [facility] Comment on above: Performed By: #### C XSPTUM ####[facility] [id number] [address]Dr. Erasmo Smith Gram Stain Evaluation Comment Normal [facility] Comment on above: Result Comment: This specimen is of good quality and is acceptable for routine bacterial culture. Performed By: #### C XSPTUM ####[facility] [id number] [address]Dr. Erasmo Smith Lower Respiratory Culture Final report Normal [facility] Comment on above: Performed By: #### C XSPTUM ####[facility] [address] [address]Dr. Erasmo Smith Result 1 Comment Normal [facility] Comment on above: Result Comment: Few gram positive cocci Performed By: #### C XSPTUM ####[facility] [address] [address]Dr. Erasmo Smith Result Comment: Rout ine respiratory adria Result 2 Normal [facility] Comment on above: Performed By: #### C XSPTUM ####[facility] [address] [place], [place] [address]Dr. Erasmo Smith Result 3 Normal [facility] Comment on above: Performed By: #### C XSPTUM ####[facility] [address] [place], [place] [address]Dr. Erasmo Smith Result 4 Normal [facility] Comment on above: Performed By: #### C XSPTUM ####[facility] [id number] [place], [place] [address]DrMeena Smith White Blood Cells Few Normal [facility] Comment on above: Performed By: #### C XSPTUM ####[facility] [address] [place], [place] [address]Dr. Erasmo Smith BNPon 02-24-2022 Natriuretic peptide B (Bld) [Mass/Vol] 319.0 pg/mL Normal <=900.0 [facility] Comment on above: Performed By: #### B MEDIA MARKETING MANAGER #### [facility] [address] [place] [address] Dr. Erasmo Smith CBC AUTO DIFFon 02-24-2022 BASO # 0.1 103/ul Normal 0.0-0.1 [facility] Comment on above: Performed By: #### C MREP #### [facility] [address] [place] [address] Dr. Erasmo Smith Basophils/100 WBC (Bld) 0.5 % Normal 0.2-2.0 [facility] Comment on above: Performed By: #### C MREP #### [facility] [address] [place] [address] Dr. Erasmo Smith EO # 0.3 103/ul Normal 0.0-0.7 [facility] Comment on above: Performed By: #### C MREP #### [facility] [address] [place] [address] Dr. Erasmo Smith Eosinophils/100 WBC (Bld) 3.1 % Normal 0.9-7.0 [facility] Comment on above: Performed By: #### C MREP #### [facility] [address] [place] [address] Dr. Erasmo Smith Erythrocyte distribution width (RBC) [Ratio] 15.1 % Critically high 11.0-15.0 [facility] Comment on above: Performed By: #### C MREP #### [facility] [address] [place] [address] Dr. Erasmo Smith Hematocrit (Bld) [Volume fraction] 33.9 % Critically low 36.0-48.0 [facility] Comment on above: Performed By: #### C MREP #### [facility] [address] [place] [address] Dr. Erasmo Smith Hemoglobin (Bld) [Mass/Vol] 10.7 g/dL Critically low 12.0-16.0 [facility] Comment on above: Performed By: #### C MREP #### [facility] [address] [place] [address] Dr. Erasmo Smith IG # 0.03 10e3/ul Normal 0.00-0.03 [facility] Comment on above: Performed By: #### C MREP #### [facility] [address] [place] [address] Dr. Erasmo Smith IG % 0.3 % Normal 0.0-0.5 [facility] Comment on above: Performed By: #### C MREP #### [facility] [address] [address] [address] Erasmo Smith LYMPH # 2.8 103/ul Normal 1.2-3.8 [facility] Comment on above: Performed By: #### C MREP #### [facility] [address] [address] [address] Erasmo Smith Lymphocytes/100 WBC (Bld) 30.6 % Normal 20.5-60.0 [facility] Comment on above: Performed By: #### C MREP #### [facility] [address] [address] [address] Erasmo Smith MANUAL DIFF REQ NO Normal [facility] Comment on above: Performed By: #### C MREP #### [facility] [address] [place] [address] Dr. Erasmo Smith MCH (RBC) [Entitic mass] 26.9 pg Normal 26.7-34.0 [facility] Comment on above: Performed By: #### C MREP #### [facility] [address] [place] [address] Dr. Erasmo Smith MCHC (RBC) [Mass/Vol] 31.6 g/dL Normal 29.9-35.2 [facility] Comment on above: Performed By: #### C MREP #### [facility] [address] [place] [address] Dr. Erasmo Smith MCV (RBC) [Entitic vol] 85.2 fL Normal 81.0-99.0 [facility] Comment on above: Performed By: #### C MREP #### [facility] [address] [place] [address] Dr. Erasmo Smith MONO # 0.7 103/ul Normal 0.3-0.8 [facility] Comment on above: Performed By: #### C MREP #### [facility] [address] [place] [address] Dr. Erasmo Smith Monocytes/100 WBC (Bld) 7.9 % Normal 1.7-12.0 [facility] Comment on above: Performed By: #### C MREP #### [facility] [address] [place] [address] Dr. Erasmo Smith NEUT # 5.3 103/ul Normal 1.4-6.5 [facility] Comment on above: Performed By: #### C MREP #### [facility] [address] [place] [address] Dr. Erasmo Smith Neutrophils/100 WBC (Bld) 57.6 % Normal 43.0-75.0 [facility] Comment on above: Performed By: #### C MREP #### [facility] [address] [place] [address] Dr. Erasmo Smith Platelet mean volume (Bld) [Entitic vol] 9.0 fL Critically low 9.5-13.5 [facility] Comment on above: Performed By: #### C MREP #### [facility] [address] [place] [address] Dr. Erasmo Smith PLT 249 103/ul Normal 150-450 [facility] Comment on above: Performed By: #### C MREP #### [facility] [address] [place] [address] Dr. Erasmo Smith RBC 3.98 106/ul Critically low 4.20-5.40 [facility] Comment on above: Performed By: #### C MREP #### [facility] [address] [place] [address] Dr. Erasmo Smith WBC 9.1 103/ul Normal 4.0-11.0 [facility] Comment on above: Performed By: #### C MREP #### [facility] [address] [place] [address] Dr. Erasmo Smith CTA CHEST WO W [...] Date: 2022-02-24 18:24 Normal [facility] D-DIMERon 02-24-2022 D-DIMER 1.36 mg/L FEU Critically high <=0.[address] [facility] Comment on above: Performed By: #### D DIM #### [facility] [address] [address] [address] Erasmo Smith D-DIMER COMMENTS SEE BELOW Normal [facility] Comment on above: Result Comment: Incr eases [...] By: #### D DIM #### [facility] [address] [address] [address] Erasmo Smith PROF 14(COMP METB)on 022 Albumin [Mass/Vol] 3.6 g/dL Normal 3.4-5.0 [facility] Comment on above: Performed By: #### C MREP #### [facility] [address] [place] [address] Dr. Erasmo Smith Albumin/Globulin [Mass ratio] 0.8 {ratio} Normal [facility] Comment on above: Performed By: #### C MREP #### [facility] [address] [address] [address] Erasmo Smith ALP [Catalytic activity/Vol] 95 U/L Normal 46-116 [facility] Comment on above: Performed By: #### C MREP #### [facility] [address] [place] [address] Dr. Erasmo Smith ALT [Catalytic activity/Vol] 45 U/L Normal 14-59 [facility] Comment on above: Performed By: #### C MREP #### [facility] [address] [place] [address] Dr. Erasmo Smiht Anion gap [Moles/Vol] 15.9 mmol/L Normal [facility] Comment on above: Performed By: #### C MREP #### [facility] [address] [place] [address] Dr. Erasmo Smith AST [Catalytic activity/Vol] 33 U/L Normal 15-37 [facility] Comment on above: Performed By: #### C MREP #### [facility] [address] [place] [address] Dr. Erasmo Smith Bilirubin [Mass/Vol] 0.5 mg/dL Normal 0.2-1.0 [facility] Comment on above: Performed By: #### C MREP #### [facility] [address] [place] [address] Dr. Erasmo Smith Calcium [Mass/Vol] 9.1 mg/dL Normal 8.5-10.1 [facility] Comment on above: Performed By: #### C MREP #### [facility] [address] [place] [address] Dr. Erasmo Smith Chloride [Moles/Vol] 103 mmol/L Normal 98-107 [facility] Comment on above: Performed By: #### C MREP #### [facility] [address] [place] [address] Dr. Erasmo Smith CO2 [Moles/Vol] 25.1 mmol/L Normal 21.0-32.0 [facility] Comment on above: Performed By: #### C MREP #### [facility] [address] [place] [address] Dr. Erasmo Smith Creatinine [Mass/Vol] 0.77 mg/dL Normal 0.55-1.02 [facility] Comment on above: Performed By: #### C MREP #### [facility] [address] [place] [address] Dr. Erasmo Smith EGFR-AF HONDURAN >60 Normal >=60 [facility] Comment on above: Performed By: #### C MREP #### [facility] [address] [place] [address] Dr. Erasmo Smith EGFR-NON AF HONDURAN >60 Normal >=60 [facility] Comment on above: Performed By: #### C MREP #### [facility] [address] [place] [address] Dr. Erasmo Smith Globulin (S) [Mass/Vol] 4.3 g/dL Normal [facility] Comment on above: Performed By: #### C MREP #### [facility] [address] [place] [address] Dr. Erasmo Smith Glucose [Mass/Vol] 92 mg/dL Normal 74-[address] [facility] Comment on above: Performed By: #### C MREP #### [facility] [address] [place] [address] Dr. Erasmo Smith Potassium [Moles/Vol] 4.0 mmol/L Normal 3.5-5.1 [facility] Comment on above: Performed By: #### C MREP #### [facility] [address] [place] [address] Dr. Erasmo Smith Protein [Mass/Vol] 7.9 g/dL Normal 6.4-8.[address] [facility] Comment on above: Performed By: #### C MREP #### [facility] [address] [place] [address] Dr. Erasmo Smith Sodium [Moles/Vol] 140 mmol/L Normal 136-145 [facility] Comment on above: Performed By: #### C MREP #### [facility] [address] [address] [address] Erasmo Smith Urea nitrogen [Mass/Vol] 17.0 mg/dL Normal 7.0-18.0 [facility] Comment on above: Performed By: #### C MREP #### [facility] [address] [address] [address] Erasmo Smith Urea nitrogen/Creatinine [Mass ratio] 22.1 mg/mg Normal [facility] Comment on above: Performed By: #### C MREP #### [facility] [address] [address] [address] Erasmo Smith PROTIMEon 02-24-2022 INR Coag (PPP) [Relative time] 2.28 {INR} Normal [facility] Comment on above: Performed By: #### P T, PTT ####[facility] [id number] [address]Dr. Erasmo Smith INR GUIDELINES SEE BELOW Normal [facility] Comment on above: Result Comment: ABNER RED INR: 2.0 - 3.0 CONDITIONS NOT LISTED BELOW 2.5 - 3.5 FOR PROSTHETIC HEART VALVE REPLACEMENT 2.5 - 3.5 RECURRENT THROMBOSIS Performed By: #### P T, PTT ####[facility] [facility] [id number] [place] [id number]. Erasmo Smith PT Coag (PPP) [Time] 23.3 s Critically high 9.0-11.6 [facility] Comment on above: Performed By: #### P T, PTT ####[facility] [id number] [id number]. Erasmo Smith PTTon 02-24-2022 aPTT Coag (Bld) [Time] 34.7 s Normal 22.3-36.2 Th [facility] Comment on above: Performed By: #### P T, PTT ####[facility] [id number] [place] [address]Dr. Erasmo Smith TROPONIN, HIGH SENSITIVITYon 02-24-2022 HSTROP 6.6 pg/mL Normal 4.0-51.3 [facility] Comment on above: Result Comment: CUT- OFF POINTS HAVE BEEN ESTABLISHED BASED ON THE FOURTH UNIVERSAL DEFINITIONS OF MYOCARDIAL INFARCTION. THE UPPER REFERENCE LIMIT (URL) OF TROPONIN, DEFINED THE 99TH PERCENTILE OF cTnI DISTRIBUTION IN A REFERENCE POPULATION, HAS BEEN CONFIRMED THE DECISION THRESHOLD FOR KS DIAGNOSIS. Performed By: #### C MREP #### [facility] [address], [place] [address] Dr. Erasmo Smith PROTHROMBIN TIMEon 2 INR Coag (PPP) [Relative time] 1.2 {INR} High 0.86-1.16 [facility] Comment on above: Result Comment: INR Theraputic Range: 2.0-3.5 Performed at [facility] [id number] [place] [id number] PT Coag (PPP) [Time] 12.7 s Normal 9.3-12.7 [facility] ANTICOAGULANT COUMADIN Normal [facility] Vital Signs Date Time Vital Sign Value Performing Clinician Faci lity 10-07-2021 16:00-0500 Body height 146.69 cm Hong Nevarez Other [email or web address] Other 10-07-2021 16:00-0500 Body mass index (BMI) [Ratio] 51.01 kg/m2 Hong Nevarez Other [email or web address] Other 10-07-2021 16:00-0500 Body weight 109.77 kg Hong Geri Other [email or web address] Other 08-26-2021 15:15-0500 Body height 146.69 cm Hong Geri Other [email or web address] Other 08-26-2021 15:15-0500 Body mass index (BMI) [Ratio] 51.07 kg/m2 Hong Geri Other [email or web address] Other 08-26-2021 15:15-0500 Body weight 109.91 kg Hong Nevarez Other [facility] [employer] Other Encounters Encounter Date Encounter Type Care Provider Facility Start: 02-27-2024 End: 02-27-2024 ambulatory SHAIKH CIRA Not Available Start: 01-17-2024 End: 01-17-2024 ambulatory NICANOR [facility] Start: 12-29-2023 End: 12-29-2023 ambulatory SHAIKH CIRA Not Available Start: 12-27-2023 End: 12-27-2023 ambulatory [facility] Start: 12-26-2023 End: 12-27-2023 ambulatory Miguel Murphy MD Facility: [facility] Start: 12-05-2023 End: 12-06-2023 ambulatory Miguel Murphy MD Facility: [facility] Start: 11-16-2023 End: 11-16-2023 ambulatory Kayley Reeder Facility:[facility] Start: 11-07-2023 End: 11-07-2023 ambulatory SHAIKH CIRA Not Available Start: 10-17-2023 Cristobal Denis MD Work Phone: [facility] Start: 10-17-2023 Cristobal Denis MD Work Phone: [facility] Start: 10-17-2023 End: 10-17-2023 ambulatory SHAIKH CIRA Not Available Start: 10-11-2023 End: 10-11-2023 ambulatory MD Shaikh Denis Work Phone: [facility] Work Phone: Start: 10-11-2023 End: 10-11-2023 Patient encounter procedure MD Shaikh Denis Work Phone: [facility]-MRI [facility] [place] Work Phone: Start: 09-08-2023 End: 09-08-2023 ambulatory Claire Clement Facility:[facility] Start: 09-08-2023 End: 09-08-2023 ambulatory MD Shaikh Denis Work Phone: [facility] Work Phone: Start: 09-08-2023 End: 09-08-2023 Patient encounter procedure MD Shaikh Denis Work Phone: [facility]-Pacemaker Check Start: 09-06-2023 End: 09-06-2023 ambulatory SHAIKH CIRA Not Available Start: 09-06-2023 Patient encounter procedure Shaikh Cira CUBA Work Phone: [facility] Start: 07-08-2023 End: 07-08-2023 ambulatory [facility] Start: 07-05-2023 End: 07-05-2023 ambulatory [facility] Start: 04-11-2023 End: 04-12-2023 ambulatory Gonzálezus Alistair Murphy MD Facility: [facility] Start: 03-01-2023 End: 03-01-2023 ambulatory [facility] Start: 01-31-2023 End: 02-01-2023 ambulatory ANDRIUS GIEDRAITIS Facility:[facility] Start: 01-28-2023 End: 01-29-2023 ambulatory ANDRIUS GIEDRAITIS Facility:[facility] Start: 01-11-2023 End: 01-12-2023 ambulatory Barbara Esposito Facility: [facility] Start: 01-10-2023 End: 02-09-2023 ambulatory SHAIKH Kymberly DENIS Facility:[facility] Start: 12-16-2022 End: 12-17-[address] DOCTOR KENNEDY Facility:[facility] Start: 12-13-2022 End: 01-07-[address] LUISANA FISHER . Facility:[facility] Start: 2022 End: 12-03-2022 Evaluation and management of inpatient KAYLEY RIVER . Facility:[facility] Start: 11-29-2022 ambulatory Barbara Cate Facility:[facility] Start: 11-26-2022 End: 11-27-[address] LUISANA FISHER . Facility:[facility] Start: 11-10-2022 End: 12-10-2022 ambulatory SHAIKH Kymberly DENIS Facility:[facility] Start: 10-13-2022 End: 11-10-2022 ambulatory SHAIKH Kymberly DENIS Facility:[facility] Start: 09-13-2022 End: 10-13-[address] LUISANA FISHER . Facility:[facility] Start: 08-12-2022 End: 09-12-[address] LUISANA FISHER . Facility:[facility] Start: 07-13-2022 End: 07-14-2022 ambulatory LUIZ SAM . Facility:[facility] Start: 07-13-2022 End: 07-14-[address] LUISANA FISHER . Facility:[facility] Start: 07-13-2022 End: 08-11-2022 ambulatory SHAIKH Kymberly DENIS Facility:[facility] Start: 07-12-2022 End: 07-13-[address] LUISANA FISHER . Facility:[facility] Start: 06-13-2022 End: 07-12-2022 ambulatory SAHU H CIRA Facility:[facility] Start: 05-27-2022 End: 05-28-2022 ambulatory LUIZ SAMSA . Facility:[facility] Start: 05-19-2022 End: 05-20-2022 ambulatory LUIZ SAMSA . Facility:[facility] Start: 05-13-2022 End: 06-12-2022 ambulatory SAHU H SHAINAD Facility:[facility] Start: 04-20-2022 End: 04-21-2022 ambulatory LUIZ SAMSA . Facility:[facility] Start: 04-12-2022 End: 05-12-2022 ambulatory SHAIKH Kymberly DENIS Facility:[facility] Start: 03-30-2022 End: 03-30-[address] LUISANA FISHER . Facility:[facility] Start: 03-12-2022 End: 04-09-2022 ambulatory SHAIKH Kymberly DENIS Facility:[facility] Start: 02-25-2022 End: 02-25-[address] LUISANA FISHER . Facility:[facility] Start: 02-24-2022 End: 02-25-[address] LUISANA FISHER . Facility: Start: 10-07-2021 End: 10-07-2021 ambulatory Hong Nevarez Other [email or web address] Other Start: 10-07-2021 Office outpatient visit 15 minutes Hong Tonydevon [facility] Start: 08-26-2021 End: 08-26-2021 ambulatory Hong Nevarez Other [email or web address] Other Start: 08-26-2021 Office outpatient ne w 45 minutes Hong Nevarez [facility] Start: 10-11-2020 End: 10-13-2020 Evaluation and management of inpatient ZANE MAYNOR Facility:[facility] Procedures Date Procedure Procedure Detail Performing [...] [facility] [address] [place] [id number] Shaikh Denis MD [address] [place] [address] [facility] Start: 10-17-2023 End: 10-17-2023 Patient encounter procedure 10/17/2023 10:15 AM EST Office Visit [facility] [address] [place] [id number] Shaikh Denis MD [address] [place] [phone] Arrived [facility] Comment on above: Arrived Start: 1945 Screening for malign ant neoplasm of colon [facility] Payers Date Payer Category Payer Private Health Insurance [id number] 2023 Self-pay [id number] 2023 Managed Care HMO (unspecified) AET[employer] AETNA [id number] 2023-Present [address] [place] [address] HMO [id number] 2022 Private Health Insurance 2007 Medicare [id number]. [id number]. [id number] 1959 Medicare [id number] 1959 Private Health Insurance [employer] [id number] 1945 Unknown [id number] 2.16.840.1.245447.3.579.2. 647 1945 Unknown [id number] 2.16.840.1.270429.3.579.2. 727 1945 Unknown [id number] 2.16.840.1.403044.3.579.2. 593 1945 Unknown [id number] 2.16.840.1.381491.3.579.2. 593 1947 Unknown [id number] 2.16.840.1.817625.3.579.2. 593 1945 Unknown [id number] 2.16.840.1.544723.3.579.2. 593 1945 Unknown [id number] 2.16.840.1.825225.3.579.2. 593 1947 Unknown [id number] 2.16.840.1.404712.3.579.2. 593 1947 Unknown [id number] 2.16.840.1.706356.3.579.2. 593 1947 Unknown [id number] 2.16.840.1.188062.3.579.2. 593 1947 Unknown [id number] 2.16.840.1.101355.3.579.2. 593 1947 Unknown [id number] 2.16.840.1.844688.3.579.2. 593 1947 Unknown [id number] 2.16.840.1.611112.3.579.2. 593 1947 Unknown [id number] 2.16.840.1.517902.3.579.2. 593 1947 Unknown [id number] 2.16.840.1.466671.3.579.2. 593 1947 Unknown [id number] 2.16.840.1.581655.3.579.2. 593 1947 Unknown [id number] 2.16.840.1.597552.3.579.2. 593 1947 Unknown [id number] 2.16.840.1.694787.3.579.2. 593 1947 Unknown [id number] 2.16.840.1.602141.3.579.2. 593 1947 Unknown [id number] 2.16.840.1.772305.3.579.2. 593 1947 Unknown [id number] 2.16.840.1.065200.3.579.2. 593 1947 Unknown [id number] 2.16.840.1.110435.3.579.2. 593 1947 Unknown [id number] 2.16.840.1.018703.3.579.2. 593 1947 Unknown [id number] 2.16.840.1.113062.3.579.2. 593 1947 Unknown [id number] 2.16.840.1.198593.3.579.2. 593 1947 Unknown [id number] 2.16.840.1.164636.3.579.2. 593 1947 Unknown [id number] 2.16.840.1.289752.3.579.2. 593 1947 Unknown [id number] 2.16.840.1.887573.3.579.2. 593 1947 Unknown [id number] 2.16.840.1.326241.3.579.2. 196 1947 Unknown [id number] 2.16.840.1.752136.3.579.2. 196 1947 Unknown [id number] 2.16.840.1.709637.3.579.2. 196 1947 Unknown [id number] 2.16.840.1.818855.3.579.2. 196 1947 Unknown [id number] 2.16.840.1.218643.3.579.2. 1259 1947 Unknown [id number] 2.16.840.1.891346.3.579.2. 1259 1947 Unknown [id number] 2.16.840.1.230970.3.579.2. 1259 1947 Unknown [id number] 2.16.840.1.479595.3.579.2. 1259 1947 Unknown [id number] 2.16.840.1.890412.3.579.2. 1259 Medicare Medicare Outpatient [id number] 1A [id number] [address] [facility] [id number] Unknown [id number] 2.16840.1.856400.3.579.2. 531 Unknown [id number] 2.16840.1.862700.3.579.2. 531 Unknown [id number] 2.16840.1.841077.3.579.2. 531 Social History Date Type Detail Facility Start: 08-30-2023 End: 09-06-2023 Sex Assigned At [facility] Start: 1945 Sex Assigned At Female F [facility] Start: 08-18-2023 Tobacco smoking stat [facility] Ex-smoker [facility] History of tobacco use Current smoker [facility] History of tobacco use Cigarette Smoker [facility] Start: 09-02-2023 Alcohol intake Not Asked [facility] Start: 08-30-2023 End: 09-06-2023 History of Social function [facility] Within the last year , have you been afraid of your partner or ex-partner? No [facility] How often do you att end scientology or christian services? Patient refused [facility] Do you belong to any clubs or organizations such as scientology groups, unions, fraternal or athletic groups, or [...] money to buy more. DK or Refused [facility] Start: 08-18-2023 Alcohol Comment (Audit-C) : Negative [facility] Start: 1945 Sex Assigned At Not on file N [facility] Progress note 01-17-2024 Note Date & [...] All other systems reviewed and are negative. [facility] Progress note 01-17-2024 Note Date & Type Note Facility 01-17-2024 Note Cardiovascular Medic [facility] SUBJECTIVE Chief Complaint Patient presents with Atrial Fibrillation Breann Starks is a 78 y.o. female here for follow-up. HPI PMHx: A-fib, atrial tachycardia s/p ablation 2005, sick sinus syndrome s/p PPM 10/2020 dual-chamber [employer], COPD, mild CAD s/p cardiac cath 2010, SHAWANDA noncompliant with mask, and obesity. She has been doing well since last seen. No significant changes. Denies c/o CP, dyspnea, orthopnea, PND, LE edema, dizziness/LH, palpitations, syncope. Patient Active Problem List Diagnosis Disorder of bursae of shoulder region Chronic obstructive lung disease (CMS/HCC) Atherosclerosis of [place] coronary artery of [place] heart without angina pectoris Diaphragmatic hernia Edema [...] Final Monocytes Absolu (more content not included)... [facility] Progress note 07-05-2023 Note Date & Type [...] sick sinus syndrome s/p PPM 10/2020 dual-chamber [employer], COPD, mild CAD s/p cardiac cath [...] could not afford DOAC. Patient underwent dual-chamber [employer] pacemaker placement on 10/13/2020. On subsequent [...] both knees Hypocalcemi (more content not included)... [facility] Progress note 03-01-2023 Note Date & Type [...] sick sinus syndrome s/p PPM 10/2020 dual-chamber [employer], COPD, mild CAD s/p cardiac cath [...] could not afford DOAC. Patient underwent dual-chamber [employer] pacemaker placement on 10/13/2020. On subsequent [...] KNEE ARTHROPLASTY Bi (more content not included)... [facility] Discharge summary note 12-13-2022 Note Date & Type Note Facility 12-13-2022 Note [id number] 1.00CD:127 [facility] Evaluation note 10-07-2021 Note Date & Type Note Facility 10-07-2021 Evaluation note Encounter Date Diagnosis Assessment Notes Sep, LOJA (nonalcoholic steatohepatitis ) (ICD-10 - K75.81) OBTAIN FIBROSURE RESULTS FROM [facility] ON RESULTS PT ENCOURAGED WEIGHT LOSS RTO ONE YEAR WITH LABS ANNUALLY Sep, Unspecified cirrhosis of liver (ICD-10 - K74.60) [email or web address] Other Evaluation note 08-26-2021 Note Date & Type Note Facility 08-26-2021 Evaluation note Encounter Date Diagnosis Assessment Notes Aug, Nonalcoholic steatohepatitis (LOJA) (ICD-10 - K75.81) RTO 6-8 WEEKS Aug, Unspecified cirrhosis of liver (ICD-10 - K74.60) Aug, Morbid obesity (ICD-10 - E66.01) [email or web address] Other Evaluation note Note Date & Type Note Facility Evaluation note No assessment information availa [facility] Work Phone: History general Narrative [...] Surgical History pacemaker Hospitalization History see above [email or web address] Other Summary Purpose Family History No Family [...] and content) DATE CREATED AUTHOR 10/23/2021 [facility] DATE CREATED AUTHOR AUTHOR'S ORGANIZ ATION 01/22/2022 [facility] DATE CREATED AUTHOR AUTHOR'S ORGANIZ ATION 01/14/2023 [facility] DATE CREATED AUTHOR AUTHOR'S ORGANIZ ATION 02/18/2023 [facility] DATE CREATED AUTHOR AUTHOR'S ORGANIZ ATION 11/27/2023 [facility] DATE CREATED AUTHOR AUTHOR'S ORGANIZ ATION 01/17/2024 [facility] DATE CREATED AUTHOR AUTHOR'S ORGANIZ ATION 01/28/2024 [facility] DATE CREATED AUTHOR AUTHOR'S ORGANIZ ATION 02/27/2024 [facility] dical Specialists EPIC REASON FOR VISIT (unrecogniz ed section and [...] October 11, 2023 End: October 11, 2023 Public Information Coordinator Relationship Specialty Start Date End Date Shaikh [...] BE BASED ON THE PRIMARY CLINICAL RECORDS. [employer] [facility]. provides no warranty or guarantee of the accuracy or completeness of information in this document.
[2024-02-29 17:14] LABS: Basophils Absolute Auto 0.1 10^3/uL (0.0-0.1); Basophils Percent Auto 0.5 % (0.2-2.0); Eosinophils Absolute Auto 0.3 10^3/uL (0.0-0.7); Eosinophils Percent Auto 2.7 % (0.9-7.0); Hematocrit 27.1 % (36.0-48.0); Hemoglobin 7.7 g/dL (12.0-16.0); Immature Granulocytes Abs Auto 0.03 10^3/uL (0.00-0.03); Immature Granulocytes Pct Auto 0.3 % (0.0-0.5); Lymphocytes Percent Auto 18.1 % (20.5-60.0); Mean Corpuscular HGB Conc 28.4 g/dL (29.9-35.2); Mean Corpuscular Hemoglobin 21.6 pg (26.7-34.0); Mean Corpuscular Volume 76.1 fL (81.0-99.0); Mean Platelet Volume 8.6 fL (9.5-13.5); Monocytes Absolute Auto 0.8 10^3/uL (0.3-0.8); Monocytes Percent Auto 7.2 % (1.7-12.0); Neutrophils Absolute Auto 7.9 10^3/uL (1.4-6.5); Neutrophils Percent Auto 71.2 % (43.0-75.0); Platelet Count 406 10^3/uL (150-450); Red Blood Count 3.56 10^6/uL (4.20-5.40); Red Cell Distribution Width 19.2 % (11.0-15.0); White Blood Count 11.1 10^3/uL (4.0-11.0)
== END 2024-02-29 16:41 | disposition home or self-care (01) ==
LOC: LAB 16:41
PROVIDERS: PCP Internal Medicine; Visit Provider Internal Medicine
DX: R06.02 Shortness of breath (principal); I50.33 Acute on chronic diastolic (congestive) heart failure; D50.9 Iron deficiency anemia, unspecified
CPT/HCPCS: 36415; 80053; 82607; 82728; 82746; 83540; 83550; 83880; 85025

== ENCOUNTER 2024-03-01 14:00 | Emergency (ER) | payer MEDICARE, SELFPAY ==
[2024-03-01 14:19] VITALS: BP 161/89; PULSE 75; TEMP 36.7; O2SAT 96; BMI 49.5
--- NOTE | 2024-03-01 14:22 | ECG_ITS ---
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
--- NOTE | 2024-03-01 14:32 | ED.WEAKNESS1 ---
HPI - Weakness General Chief complaint: Weakness Stated complaint: LOW BLOOD COUNT Time Seen by Provider: 03/01/24 14:06 Source: patient and family Mode of arrival: Wheelchair Limitations: no limitations History of Present Illness HPI Narrative: Patient is a 78-year-old female who presents to the emergency department for evaluation of abnormal outpatient labs. She states she had outpatient labs and a chest x-ray with echocardiogram yesterday for recent diagnosis of CHF. She was instructed to come to the ER because she had a low hemoglobin. She states she has had issues in the past with low hemoglobin and no cause has ever been found. She was also noted on outpatient labs to have low iron. She is on Eliquis for history of A-fib. She states she has been taking her Eliquis, she has not noted any hematuria, dark or tarry stools. She has no abdominal pain. She states she feels generally weak and short of breath when she is up and walking. She admits she has not been taking her Lasix because she does not want to urinate more. Related Data Home Medications ?Medication ?Instructions ?Recorded ?Confirmed cholecalciferol (vitamin D3) 125 5,000 unit PO DAILY 02/16/23 03/01/24 mcg (5,000 unit) tablet (Vitamin D3) flecainide 100 mg tablet 100 mg PO Q12H 02/16/23 03/01/24 omeprazole 40 mg capsule,delayed 40 mg PO DAILY 02/16/23 03/01/24 release spironolactone 25 mg tablet 25 mg PO DAILY 02/16/23 03/01/24 (Aldactone) verapamil 180 mg tablet,extended 180 mg PO DAILY 02/16/23 03/01/24 release (Calan SR) apixaban 5 mg tablet (Eliquis) 5 mg PO BID 05/11/23 03/01/24 furosemide 40 mg tablet 40 mg PO DAILY 03/01/24 03/01/24 Previous Rx's ?Medication ?Instructions ?Recorded baclofen 10 mg tablet 10 mg PO TID #90 tabs 02/15/24 hydrocodone 5 mg-acetaminophen 325 1 tab PO BID #6 tabs 02/15/24 mg tablet Allergies Allergy/AdvReac Type Severity Reaction Status Date / Time No Known Drug Allergies Allergy Verified 12/26/23 08:14 Review of Systems ROS Constitutional Denies: fever or chills Ears, nose, mouth, and throat Denies: throat pain or nasal congestion Respiratory Denies: shortness of breath Gastrointestinal Denies: nausea or vomiting Musculoskeletal Denies: back pain or neck pain Neurological Denies: headache Hematologic/Lymphatic Reports: easy bruising and easy bleeding PFSH PFSH Medical History Fatty liver ?K76.0 - Fatty (change of) liver, not elsewhere classified (ICD-10) History of shingles ?Z86.19 - Personal history of other infectious and parasitic diseases (ICD-10) Osteoarthritis ?M19.90 - Unspecified osteoarthritis, unspecified site (ICD-10) Pacemaker ?Z95.0 - Presence of cardiac pacemaker (ICD-10) Hiatal hernia ?K44.9 - Diaphragmatic hernia without obstruction or gangrene (ICD-10) Low back pain ?M54.50 - Low back pain, unspecified (ICD-10) Irregular heart beat ?I49.9 - Cardiac arrhythmia, unspecified (ICD-10) Surgical History S/P rotator cuff repair ?Z98.890 - Other specified postprocedural states (ICD-10) History of colonoscopy ?Z98.890 - Other specified postprocedural states (ICD-10) S/P YANELI-BSO ?Z90.710 - Acquired absence of both cervix and uterus (ICD-10) ?Z90.722 - Acquired absence of ovaries, bilateral (ICD-10) ?Z90.79 - Acquired absence of other genital organ(s) (ICD-10) H/O cardiac catheterization ?Z98.890 - Other specified postprocedural states (ICD-10) H/O arthroscopy of shoulder ?Z98.890 - Other specified postprocedural states (ICD-10) H/O arthroscopy of knee ?Z98.890 - Other specified postprocedural states (ICD-10) History of appendectomy ?Z90.49 - Acquired absence of other specified parts of digestive tract (ICD-10) History of total knee arthroplasty ?Z96.659 - Presence of unspecified artificial knee joint (ICD-10) Exam Narrative Exam Narrative: Gen.: Awake, alert, in no distress Head: Normocephalic, atraumatic ENT: Moist mucous membranes Respiratory: No respiratory distress, lungs clear bilaterally Cardio: Regular rate and rhythm Gastrointestinal: Abdomen is soft, nondistended and nontender to palpation Extremities: Moves extremities equally Psych: Normal mood and affect Neuro: No focal neuro deficit Skin: Warm, dry, intact Constitutional Vital Signs, click to edit/add: Last Vital Signs Temp 98.1 F 03/01/24 14:19 Pulse 75 03/01/24 14:19 Resp 18 03/01/24 14:19 BP 161/89 H 03/01/24 14:19 Pulse Ox 96 03/01/24 14:19 O2 Del Method Room Air 03/01/24 14:19 Course Vital Signs Vital signs: Vital Signs Temperature 98.1 F 03/01/24 14:19 Pulse Rate 75 03/01/24 14:19 Respiratory Rate 18 03/01/24 14:19 Blood Pressure 161/89 H 03/01/24 14:19 Pulse Oximetry 96 03/01/24 14:19 Oxygen Delivery Method Room Air 03/01/24 14:19 Temperature 98.1 F 03/01/24 14:19 Pulse Rate 75 03/01/24 14:19 Respiratory Rate 18 03/01/24 14:19 Blood Pressure 161/89 H 03/01/24 14:19 Pulse Oximetry 96 03/01/24 14:19 Oxygen Delivery Method Room Air 03/01/24 14:19 MDM - Weakness MDM Narrative Medical decision making narrative: Rectal exam performed with the patient's consent. Evelyne Borrero RN at bedside throughout the duration of the exam. No external hemorrhoids or active rectal bleeding. Light brown stool obtained and Hemoccult was sent to the lab. Lab studies show improved hemoglobin from yesterday at 7.9. Vital signs are stable. Patient with occult positive stool, the remainder of the labs are unremarkable including BUN, troponin and BNP. Patient in normal sinus rhythm in the ER. I discussed the case with her PCP, Dr. Denis, Who referred the patient to the ER to determine The timeframe in which she would need colonoscopy. I discussed the case with Dr. Zuleta for general surgery. At this time, the patient is hemodynamically stable, he recommended that she should stop her Eliquis and follow-up with him in the office in [place] tomorrow at 11:30 AM. Patient and are agreeable to this plan and grateful that the patient can avoid an admission at this time. Return to the ER if symptoms change or worsen. Patient given strict instructions for follow-up. SHARED APC VISIT, PHYSICIAN ATTESTATION: [id number] I performed a substantive part of the MDM during the patient?s E/M visit. I personally evaluated and examined the patient. I personally made or approved the documented management plan and acknowledge its risk of complications. Medical Records Attestation: I reviewed the patient's medical records. Lab Data Attestation: I reviewed the patient's lab results. Labs: Lab Results 03/01/24 03/01/24 03/01/24 Range/Units 14:25 14:30 14:45 WBC 9.5 (4.0-11.0) 10^3/uL RBC 3.61 L (4.20-5.40) 10^6/uL Hgb 7.9 L (12.0-16.0) g/dL Hct 26.6 L (36.0-48.0) % MCV 73.7 L (81.0-99.0) fL MCH 21.9 L (26.7-34.0) pg MCHC 29.7 L (29.9-35.2) g/dL RDW 19.1 H (11.0-15.0) % Plt Count 436 (150-450) 10^3/uL MPV 8.8 L (9.5-13.5) fL Neut % (Auto) 73.9 (43.0-75.0) % Lymph % (Auto) 15.5 L (20.5-60.0) % [place] % (Auto) 7.2 (1.7-12.0) % Eos % (Auto) 2.5 (0.9-7.0) % Baso % (Auto) 0.6 (0.2-2.0) % Neut # (Auto) 7.0 H (1.4-6.5) 10^3/uL Lymph # (Auto) 1.5 (1.2-3.8) 10^3/uL [place] # (Auto) 0.7 (0.3-0.8) 10^3/uL Eos # (Auto) 0.2 (0.0-0.7) 10^3/uL Baso # (Auto) 0.1 (0.0-0.1) 10^3/uL Abs Immat Gran (auto) 0.03 (0.00-0.03) 10^3/uL Imm/Tot Granulo (auto) 0.3 (0.0-0.5) % PT 12.4 H (9.0-11.6) sec INR 1.19 Sodium 136 (136-145) mmol/L Potassium 3.6 (3.5-5.1) mmol/L Chloride 101 (98-107) mmol/L Carbon Dioxide 31.7 (21.0-32.0) mmol/L Anion Gap 6.9 BUN 14.0 (7.0-18.0) mg/dL Creatinine 0.91 (0.55-1.02) mg/dL Est GFR ( Amer) >60 (>=60) Est GFR (Non-Af Amer) >60 (>=60) BUN/Creatinine Ratio 15.4 Glucose 100 (74-106) mg/dL Lactate 1.1 (0.4-2.0) mmol/L Calcium 8.9 (8.5-10.1) mg/dL Total Bilirubin 0.5 (0.2-1.0) mg/dL AST 26 (15-37) U/L ALT 22 (14-59) U/L Alkaline Phosphatase 88 (46-116) U/L Troponin I High Sens 6.6 (4.0-51.3) pg/mL NT-Pro-B Natriuret Pep 263.0 (<=1800.0) pg/mL Total Protein 8.0 (6.4-8.2) g/dL Albumin 3.0 L (3.4-5.0) g/dL Globulin 5.0 g/dL Albumin/Globulin Ratio 0.6 Urine Color Lt. yellow (YELLOW) Urine Clarity Clear (CLEAR) Urine pH 7.0 (5.0-9.0) Ur Specific [place] 1.015 (1.005-1.025) Urine Protein Negative (NEG/TRACE) mg/dL Urine Glucose (UA) Negative (NEGATIVE) mg/dL Urine Ketones Negative (NEGATIVE) mg/dL Urine Occult Blood Negative (NEGATIVE) Urine Nitrite Negative (NEGATIVE) Urine Bilirubin Negative (NEGATIVE) Urine Urobilinogen 0.2 (0.2-1.0) EU/dL Ur Leukocyte Esterase Negative (NEGATIVE) Stool Occult Blood Positive A ECG Data Attestation: I personally reviewed and interpreted this ECG as follows: (Normal sinus rhythm at a rate of 72, no acute ST elevation or ectopy. EKG reviewed by attending physician) Discharge Plan Discharge Stand Alone Forms: Portal Instructions Chief Complaint: Weakness Clinical Impression: Anemia, Acute lower GI bleeding Patient Disposition: Home, Self-Care Time of Disposition Decision: 15:40 Condition: Good Prescriptions / Home Meds: No Action Eliquis 5 mg tablet 5 mg PO BID baclofen 10 mg tablet 10 mg PO TID Qty: 90 0RF hydrocodone-acetaminophen 5-325 mg tablet 1 tab PO BID Qty: 6 0RF furosemide 40 mg tablet 40 mg PO DAILY flecainide 100 mg tablet 100 mg PO Q12H spironolactone [Aldactone] 25 mg tablet 25 mg PO DAILY cholecalciferol (vitamin D3) [Vitamin D3] 125 mcg (5,000 unit) tablet 5,000 unit PO DAILY omeprazole 40 mg capsule,delayed release(DR/EC) 40 mg PO DAILY verapamil [Calan SR] 180 mg tablet extended release 180 mg PO DAILY Print Language: Burkinan Instructions: Anemia (ED) Additional Instructions: Please stop your Eliquis and follow up with Dr. Zuleta tomorrow in the [place] office. Referrals: Ortega Zuleta MD [Physician] - 03/02/24 11:30 am Shaikh Denis MD [Primary Care Provider] - 1 week
[2024-03-01 15:02] VITALS: BP 135/61
[2024-03-01 15:02] LABS: Bilirubin Urine NEGATIVE (NEGATIVE); Blood Urine NEGATIVE (NEGATIVE); Clarity Urine CLEAR (CLEAR); Color Urine LT. YELLOW (YELLOW); Glucose Urine UA NEGATIVE (NEGATIVE); Ketones Urine NEGATIVE (NEGATIVE); Leukocyte Esterase Urine NEGATIVE (NEGATIVE); Nitrite Urine NEGATIVE (NEGATIVE); Protein Urine NEGATIVE (NEG/TRACE); Specific Gravity Urine 1.015 (1.005-1.025); Urobilinogen Urine 0.2 EU/dL (0.2-1.0)
[2024-03-01 15:03] LABS: Urine Microscopic Indicated NO
[2024-03-01 15:05] LABS: Basophils Absolute Auto 0.1 10^3/uL (0.0-0.1); Basophils Percent Auto 0.6 % (0.2-2.0); Eosinophils Absolute Auto 0.2 10^3/uL (0.0-0.7); Eosinophils Percent Auto 2.5 % (0.9-7.0); Hematocrit 26.6 % (36.0-48.0); Hemoglobin 7.9 g/dL (12.0-16.0); Immature Granulocytes Abs Auto 0.03 10^3/uL (0.00-0.03); Immature Granulocytes Pct Auto 0.3 % (0.0-0.5); Lymphocytes Absolute Auto 1.5 10^3/uL (1.2-3.8); Lymphocytes Percent Auto 15.5 % (20.5-60.0); Mean Corpuscular HGB Conc 29.7 g/dL (29.9-35.2); Mean Corpuscular Hemoglobin 21.9 pg (26.7-34.0); Mean Corpuscular Volume 73.7 fL (81.0-99.0); Mean Platelet Volume 8.8 fL (9.5-13.5); Monocytes Absolute Auto 0.7 10^3/uL (0.3-0.8); Monocytes Percent Auto 7.2 % (1.7-12.0); Neutrophils Percent Auto 73.9 % (43.0-75.0); Platelet Count 436 10^3/uL (150-450); Red Blood Count 3.61 10^6/uL (4.20-5.40); Red Cell Distribution Width 19.1 % (11.0-15.0); White Blood Count 9.5 10^3/uL (4.0-11.0)
[2024-03-01 15:07] VITALS: PULSE 71
[2024-03-01 15:10] LABS: Internal Control Within Normal Limits; Occult Blood Positive
[2024-03-01 15:14] LABS: Lactate/Lactic Acid 1.1 mmol/L (0.4-2.0)
[2024-03-01 15:20] LABS: Alanine Aminotransferase 22 U/L (14-59); Albumin Globulin Ratio 0.6; Alkaline Phosphatase 88 U/L (46-116); Anion Gap 6.9; Aspartate Amino Transferase 26 U/L (15-37); BUN Creatinine Ratio 15.4; Bilirubin Total 0.5 mg/dL (0.2-1.0); Calcium 8.9 mg/dL (8.5-10.1); Carbon Dioxide 31.7 mmol/L (21.0-32.0); Chloride 101 mmol/L (98-107); Estimated GFR (African America >60 (>=60); Estimated GFR (Non-African Ame >60 (>=60); Glucose 100 mg/dL (74-106); Potassium 3.6 mmol/L (3.5-5.1); Sodium 136 mmol/L (136-145); Troponin I High Sensitivity 6.6 pg/mL (4.0-51.3)
[2024-03-01 15:24] LABS: INR 1.19; Prothrombin Time 12.4 sec (9.0-11.6)
[2024-03-01 15:30] VITALS: BP 142/53
[2024-03-01 16:08] VITALS: BP 143/53; PULSE 75; O2SAT 99
== END 2024-03-01 16:09 | disposition home or self-care (01) ==
PROVIDERS: Physician Assistant; Emergency Provider Emergency Medicine; PCP Internal Medicine
DX: D64.9 Anemia, unspecified (principal); K92.2 Gastrointestinal hemorrhage, unspecified; Z79.01 Long term (current) use of anticoagulants; I48.91 Unspecified atrial fibrillation; I50.9 Heart failure, unspecified
CPT/HCPCS: 36415; 80053; 81003; 83605; 83880; 84484; 85025; 85610; 86850; 86900; 86901; 93005; 99284; G0328

== ENCOUNTER 2024-03-06 11:36 | Outpatient (OUT) | payer MEDICARE, SELFPAY ==
--- OUTSIDE RECORDS SUMMARY | 2024-03-06 11:52 | XMS_ITS ---
Patient Summarization (C-CDA 2.1 CCD) Created on: March 06, 2024 BREANN STARKS : 1945 Sex: Female Author Organization Sample organization Care Team Providers Care Highballer Name Role Phone ZANE MCGUIRE Admitting Unavailable YANCY HENNESSY Referring Unavailable LUISANA FISHER Primary Care Unavailable ZANE MCGUIRE Attending Unavailable YANCY HENNESSY Surgeon Unavailable SC Procedure Practitioner Unavailab Hong Adler Unavailable FISHER ., DR LUISANA Herbert Primary Care Unavailable FISHER ., DR LUISANA Herbert Admitting Unavailable FISHER ., DR LUISANA Herbert Attending Unavailable FISHER ., DR LUISANA Herbert Consulting Unavailable FISHER ., DR LUISANA Herbert Primary Care Unavailable FAWMADHURI, SAHU H Attending Unavailable FAWWAD, SAHU H Admitting Unavailable FAWWAD, SAHU H Admitting Unavailable FAWMADHURI, H Attending Unavailable FISHER ., DR LUISANA [...] FISHER ., DR LUISANA Herbert Consulting Unavailable FAWWAAlysa, SAHU H Attending Unavailable FAWWAD, SAHU H Admitting Unavailable FISHER ., DR LUISANA Herbert Primary Care Unavailable FAWWAD, SAHU H Attending Unavailable FAWWAD, SAHU H Admitting Unavailable FISHER ., DR LUISANA Herbert Primary Care Unavailable FISHER ., DR LUISANA Herbert Admitting Unavailable FISHER ., DR LUISAAN Herbert Attending Unavailable FISHER ., DR LUISANA Herbert Consulting Unavailable FISHER ., DR LUISANA Herbert Primary Care Unavailable ZIEBER, DR PAULA Bishop Consulting Unavailable SAMSA ., [...] Admitting Unavailable RIVER ., KAYLEY Attending Unavailable WEST, DR HONG Morgan Consulting [...] ., DR LUISANA Herbert Primary Care Unavailable FASILVANA, H Attending Unavailable FASILVANA, SAHU H Admitting Unavailable SAMSA ., LUIZ Admitting Unavailable SAMSA ., LUIZ Attending Unavailable SAMSA ., LUIZ Consulting Unavailable FISHER ., DR LUISANA Herbert Primary Care Unavailable THANG Clement Attending Provider [phone] MD Janice Denis Primary Care Provider [phone] THANG Clement Attending Provider [phone] Cira CUBA [facility] Primary Care Provider [phone] Claire Clement Admitting Unavailable Claire Clement Attending Unavailable abiodunmoalysa, [facility] Primary Care Unavailable Kayley Reeder Admitting Unavailable Kayley Reeder Attending Unavailable [facility] Primary Care Unavailable Claire Clement Admitting Unavailable Claire Clement Attending Unavailable [facility], [facility] Primary Care Unavailable Giedraitis , Andrius Sainz Attending Unavailable Giedraitis , Andrius Vrenee Attending Unavailable Giedraitis , Andrius Vrenee Attending Unavailable Giedraitis , Andrius Vrenee Attending Unavailable YANCY HENNESSY Referring Unavailable YANCY HENNESSY Attending Unavailable YANCY HENNESSY Attending Unavailable NICANOR DINH Attending Unavailable YANCY HENNESSY Referring Unavailable CIRA, Attending Unavailable FAWWAAlysa, Attending Unavailable FASILVANA, Attending Unavailable FASILVANA, Attending Unavailable FASILVANA, Attending Unavailable CIRA, SAHU Referring Unavailable Ortega ALEXANDER Attending Unavailable Allergies Allergy Classification Reported Allergen(s) Allergy Type Date of Onset Reaction(s) Facility (1 source) ; Translations: [novacaine] Propensity to adverse reactions (disorder) 2 [facility] (2 sources) NSAIDs Propensity to adverse reactions HEART ISSUES [facility] Other (1 source) Adhesive agent Drug allergy (disorder) 4 [facility] Repository (1 source) NSAIDs Drug allergy (disorder) 4 [facility] (1 source) meloxicam; Translations: [Mobic] Drug Allergy [facility] Repository (1 source) No Known Medication Allergies; Translations: [No Known Medication Allergies] Propensity to adverse reactions (disorder) [facility] Repository Encounters Encounter Date Encounter Type Care Provider Facility Start: 03-02-2024 End: 03-02-2024 ambulatory SHAIKH CIRA Facility:[facility] Start: 03-02-2024 End: 03-02-2024 Patient encounter procedure Ortega ALEXANDER [facility] [place] Start: 03-01-2024 ambulatory SHAIKH CIRA Facility: [facility] Start: 02-27-2024 End: 02-27-2024 ambulatory SHAIKH CIRA Not Available Start: 01-17-2024 End: 01-17-2024 ambulatory NICANOR [facility] Start: 12-29-2023 End: 12-29-2023 ambulatory SHAIKH CIRA Not Available Start: 12-27-2023 End: 12-27-2023 ambulatory YANCY [facility] Start: 12-26-2023 End: 12-27-2023 ambulatory Miguel Garcia MD [facility] Start: 12-05-2023 End: 12-06-2023 ambulatory Miguel Garcia MD [facility] Start: 11-16-2023 End: 11-16-2023 ambulatory Kayley Reeder Facility:[facility] Start: 11-07-2023 End: 11-07-2023 ambulatory SHAIKH CIRA Not Available Start: 10-17-2023 Cristobal Denis MD Work Phone: [facility] Start: 10-17-2023 Cristobal Denis MD Work Phone: [facility] Start: 10-17-2023 End: 10-17-2023 ambulatory SHAIKH CIRA Not Available Start: 10-11-2023 End: 10-11-2023 ambulatory MD Shaikh Denis Work Phone: [facility] Work Phone: Start: 10-11-2023 End: 10-11-2023 Patient encounter procedure MD Shaikh Denis Work Phone: [facility] [place] Work Phone: Start: 09-08-2023 End: 09-08-2023 ambulatory Claire Clement Facility:[facility] Start: 09-08-2023 End: 09-08-2023 ambulatory MD Shaikh Denis Work Phone: [facility] Work Phone: Start: 09-08-2023 End: 09-08-2023 Patient encounter procedure MD Shaikh Denis Work Phone: [facility]-Pacemaker Check Start: 09-06-2023 End: 09-06-2023 ambulatory SHAIKH CIRA Not Available Start: 09-06-2023 Patient encounter procedure Shaikh Cira CUBA Work Phone: [facility] Start: 07-08-2023 End: 07-08-2023 ambulatory [facility] Start: 07-05-2023 End: 07-05-2023 ambulatory [facility] Start: 04-11-2023 End: 04-12-2023 ambulatory Miguel Gacria MD [facility] Start: 03-01-2023 End: 03-01-2023 ambulatory YANCY [facility] Start: 01-31-2023 End: 02-01-2023 ambulatory ANDLUIS MANUEL GARCIA Facility:[facility] Start: 01-28-2023 End: 01-29-2023 ambulatory ANDRIUS GIEDRAITIS Facility:[facility] Start: 01-10-2023 End: 02-09-2023 ambulatory SHAIKH Kymberly DENIS Facility:[facility] Start: 12-16-2022 End: 12-17-[address] DOCTOR KENNEDY Facility:[facility] Start: 12-13-2022 End: 01-07-[address] LUISANA FISHER . Facility:[facility] Start: 2022 End: 12-03-2022 Evaluation and management of inpatient KAYLEY RIVER . Facility:[facility] Start: 11-26-2022 End: 11-27-[address] LUISANA [...] . Facility:[facility] Start: 06-13-2022 End: 07-12-2022 ambulatory SHAIKH Kymberly DENIS Facility:[facility] Start: 05-27-2022 End: 05-28-2022 ambulatory LUIZ QUEEN . Facility:[facility] Start: 05-19-2022 End: 05-20-2022 ambulatory LUIZ QUEEN . Facility:[facility] Start: 05-13-2022 End: 06-12-2022 ambulatory SHAIKH Kymberly DENIS Facility:[facility] Start: 04-20-2022 End: 04-21-2022 ambulatory LUIZ QUEEN . Facility:[facility] Start: 04-12-2022 End: 05-12-2022 ambulatory SAHUSHAHEED PAGESILVANA Facility:[facility] Start: 03-30-2022 End: 03-30-[address] LUISANA FISHER . Facility:[facility] Start: 03-12-2022 End: 04-09-2022 ambulatory SAHUSHAHEED PAGESILVANA Facility:[facility] Start: 02-25-2022 End: 02-25-[address] LUISANA FISHER . Facility:[facility] Start: 02-24-2022 End: 02-25-[address] LUISANA FISHER . Facility:[facility] Start: 10-07-2021 End: 10-07-2021 ambulatory Hong Nevarez Other [facility] Other Start: 10-07-2021 Office outpatient visit 15 minutes Hong Nevarez [facility] Start: 08-26-2021 End: 08-26-2021 ambulatory Hong Nevarez Other [facility] Other Start: 08-26-2021 Office outpatient ne w 45 minutes Hong Nevarez [facility] Start: 10-11-2020 End: 10-13-2020 Evaluation and management of inpatient ZANE MCGUIRE Facility:[facility] Immunizations Immunization Date Immunization Notes Care Provider Fa cili 08-25-2023 influenza virus vacc ine, unspecified formulation Ortega ALEXANDER [facility] [place] 07-08-2022 influenza virus vacc ine, unspecified formulation Ortega ALEXANDER [facility] 08-20-2021 influenza virus vacc ine, unspecified formulation Ortega ALEXANDER [facility] 12-09-2021 pneumococcal polysaccharide vaccine, 23 valent Ortega NILL [facility] 11-18-2020 SARS-CoV-2 (COVID-19 ) mRNA-1273 vaccine Ortega NILL [facility] 10-20-2020 SARS-CoV-2 (COVID-19 ) mRNA-1273 vaccine Ortega NILL [facility] 08-04-2020 influenza virus vacc ine, unspecified formulation Ortega NILL [facility] 08-04-2020 pneumococcal conjuga te vaccine, 13 valent Ortega NILL [facility] 08-06-2019 influenza virus vacc ine, unspecified formulation Ortega NILL [facility] 07-05-2017 influenza virus vacc ine, unspecified formulation Ortega NILL [facility] 07-05-2017 pneumococcal conjuga te vaccine, 13 valent Ortega NILL [facility] 06-29-2016 influenza virus vacc ine, unspecified formulation Ortega NILL [facility] 06-25-2015 influenza virus vacc ine, unspecified formulation Ortega NILL [facility] 06-12-2015 influenza virus vacc ine, unspecified formulation Ortega NILL [facility] 07-12-2014 influenza virus vacc ine, unspecified formulation Ortega NILL [facility] 08-07-2013 influenza virus vacc ine, unspecified formulation Ortega NILL [facility] Medications Current Medications Medication Drug Class(es) Dates Sig (Normalized) Sig (Original) acetaminophen 325 mg / HYDROcodone bitartrate 5 mg oral tablet (1 source) Opioid Agonist Start: 03-01-2024 take 1 tablet by mouth twice daily acetaminophen-hyd rocodone 325 mg-5 mg oral tablet 1 tab(s), Oral, BID, Refill(s) 0 Start Date: 03/01/24 Status: Ordered apixaban 5 mg oral tablet (2 sources) Factor Xa Inhibitor Start: 03-01-2024 take 1 tablet by mouth twice daily Eliquis 5 mg oral tablet 5 mg = 1 tab(s), Oral, BID, Refills(s) 0 Start Date: 03/01/24 Status: Ordered take 1 tablet by mouth in the mo rning apixaban (Eliquis) 5 MG tablet Take 5 mg by mouth in the morning and 5 mg before bedtime. 0 Active ascorbic acid 100 mg oral tablet (1 source) Vitamin C take 1 tablet by mouth in the morning Ascorbic Acid (vitamin C) 100 MG tablet Take 100 mg by mouth in the morning. 0 Active baclofen 10 mg oral tablet (1 source) gamma-Aminobutyric Acid-ergic Agonist Start: take 1 tablet by mouth three times daily baclofen 10 mg Tab 10 mg = 1 tab(s), Oral, TID, Refills(s) 0 Start Date: 03/01/24 Status: Ordered 120 actuat budesonide 0.16 mg/actuat / formoterol fumarate 0.0045 mg/actuat metered dose inhaler (2 sources) Corticosteroid, beta2-Adrenergic Agonist take 2 puff(s) by inhalation twice daily Symbicort 160-4.5 MCG/ACT 2 puffs Inhalation Twice a day Active Centrum Silver (2 sources) Centrum Silver Orally *please review for potential _update for e-prescription and drug interaction check* Active Centrum Women 50 Plus Multigummies oral tablet, chewable (1 source) Start: Centrum Women 50 Plus Multigummies oral tablet, chewable Refill(s) 0 Start Date: 01/11/23 Status: Ordered flecainide acetate 100 mg oral tablet (4 sources) Antiarrhythmic Start: 023 take 1 tablet by mouth every twelve hours flecainide 100 mg Tab 100 mg = 1 tab(s), Oral, q12hr, # 180 tab(s), Refills(s) 0 Start Date: 01/11/23 Status: Ordered take 1 tablet by mouth once gabi y flecainide (Tambocor) 50 MG tablet Take 50 mg by mouth 1 (one) time each day 0 Active furosemide 40 mg oral tablet (3 sources) Loop Diuretic Start: 03-01-2024 take 1 tablet by mouth once daily Lasix 40 mg Tab 40 mg = 1 tab(s), Oral, Daily, Refills(s) 0 Start Date: 03/01/24 Status: Ordered take 1 tablet by dirk every twenty-four hours Furosemide 20 MG 1 tablet Orally Once a day Active gabapentin 300 mg oral capsule (1 source) Anti-epileptic Agent Start: 09-06-2023 End: 12-05-2023 take 1 capsule by mouth at bedtime gabapentin (Neurontin) 300 MG capsule Indications: Chronic bilateral low back pain with bilateral sciatica Take 1 capsule (300 mg) by mouth at bedtime 30 capsule 2 09/06/2023 12/05/2023 Active hydroCHLOROthiazide 25 mg oral tablet (2 sources) Thiazide Diuretic take 1 tablet by mouth every twenty-fou r hours hydroCHLOROthiazide 25 MG 1 tablet Orally Once a day Active Multiple Vitamins-Minerals (CENTRUM SILVER 50+WOMEN PO) (1 source) take 1 tablet by mouth in the morning Multiple Vitamins-Minerals (CENTRUM SILVER 50+WOMEN PO) Take 1 tablet by mouth in the morning. 0 Active omeprazole 40 mg delayed release oral capsule (4 sources) Proton Pump Inhibitor Start: 02-15-2023 take 1 capsule by mouth once daily omeprazole (PriLOSEC) [address] capsule Indications: Peptic ulcer, site unspecified, unspecified as acute or chronic, without hemorrhage or perforation , Peptic ulcer TAKE 1 CAPSULE BY MOUTH EVERY DAY 90 capsule 0 10/13/2023 Active take 1 capsule by mo [facility] every twenty-four hours Omeprazole 40 MG 1 capsule Orally Once a day Active potassium chloride 10 meq extended release oral capsule (2 sources) take 1 capsule by mouth every twenty-four hours Potassium Chloride 10 MEQ 1 capsule with food Orally Once a day Active spironolactone 25 mg oral tablet (2 sources) Aldosterone Antagonist Start: 06-20-2 024 take 1 tablet by mouth once daily spironolactone 25 mg Tab 25 mg = 1 tab(s), Oral, Daily, Refills(s) 0 Start Date: 03/01/24 Status: Ordered take 1 tablet by mouth in the mo rning spironolactone (Aldactone) 25 MG tablet Take 25 mg by mouth in the morning. 0 Active 24 hr verapamil hydrochloride 180 mg extended release oral capsule (4 sources) Calcium Channel Ozzy Start: 03-01-2024 take 1 capsule by mouth once daily verapamil 180 mg Cap-ER 180 mg = 1 cap(s), Oral, Daily, Refills(s) 0 Start Date: 03/01/24 Status: Ordered Start: 02-14-2023 End: 02-14-2024 take 1 capsule by mouth every twenty-four hours in the morning verapamil ER (Verelan) 180 MG 24 hr capsule Take 360 mg by mouth in the morning. 0 02/14/2023 02/14/2024 Active take 1 capsule by mo [facility] every twenty-four hours Verapamil HCl ER 360 MG 1 capsule Orally Once a day Active Vitamin C 500 MG (2 sources) Vitamin C 500 MG Orally Active Vitamin D3 5000 intl units (125 mcg) oral tab (1 source) Start: 02-15-2023 take 1 tablet by mouth once daily Vitamin D3 5000 intl units (125 mcg) oral tab 125 mcg = 1 tab(s), Oral, Daily, # 90 tab(s), Refills(s) 0, Pharmacy: [facility]/pharmacy #[id number], 141, cm, 01/11/23 10:30:00 EDT, Height/Length Dosing, 107.2, kg, 01/11/23 10:30:00 EDT, Weight Dosing Start Date: 02/15/23 Status: Ordered warfarin sodium 3 mg oral tablet (2 sources) Vitamin K Antagonist take 1 tablet by mouth every twenty-four hours Warfarin Sodium 3 MG 1 tablet Orally Once a day Active Payers Date Payer Category Payer Private Health Insurance [id number] 2023 Self-pay [id number] 2023 Managed Care HMO (unspecified) [employer] A[employer] [id number] 2023-Present [address] [place] [address] HMO [id number] 2022 Private Health Insurance 2007 Medicare [id number] 1959 Medicare [id number] 1959 Private Health Insurance [facility] [id number] 1945 Unknown [id number] 2.16.840.1.630998.3.579.2. 647 1945 Unknown [id number] 2.16.840.1.605334.3.579.2. 593 1945 Unknown [id number] 2.16.840.1.926360.3.579.2. 593 1945 Unknown [id number] 2.16.840.1.605169.3.579.2. 593 1945 Unknown [id number] 2.16.840.1.994198.3.579.2. 593 1945 Unknown [id number] 2.16.840.1.977126.3.579.2. 593 1945 Unknown [id number] 2.16.840.1.750687.3.579.2. 593 1945 Unknown [id number] 2.16.840.1.182388.3.579.2. 593 1945 Unknown [id number] 2.16.840.1.220351.3.579.2. 593 1945 Unknown [id number] 2.16.840.1.659230.3.579.2. 593 1945 Unknown [id number] 2.16.840.1.856692.3.579.2. 593 1945 Unknown [id number] 2.16.840.1.510326.3.579.2. 593 1945 Unknown [id number] 2.16.840.1.633266.3.579.2. 593 1945 Unknown [id number] 2.16.840.1.549189.3.579.2. 593 1945 Unknown [id number] 2.16.840.1.242145.3.579.2. 593 1945 Unknown [id number] 2.16.840.1.096698.3.579.2. 593 1945 Unknown [id number] 2.16.840.1.790864.3.579.2. 593 1947 Unknown [id number] 2.16840.1.197076.3.579.2. 593 1947 Unknown [id number] 2.16840.1.009910.3.579.2. 593 1945 Unknown [id number] 2.16840.1.038356.3.579.2. 593 1945 Unknown [id number] 2.16840.1.716939.3.579.2. 593 1945 Unknown [id number] 2.16840.1.367134.3.579.2. 593 1945 Unknown [id number] 2.16840.1.441372.3.579.2. 593 1945 Unknown [id number] 2.16.840.1.373122.3.579.2. 593 1945 Unknown [id number] 2.16.840.1.697541.3.579.2. 593 1945 Unknown [id number] 2.16.840.1.209251.3.579.2. 593 1945 Unknown [id number] 2.16.840.1.501957.3.579.2. 593 1945 Unknown [id number] 2.16.840.1.903330.3.579.2. 196 1945 Unknown [id number] 2.16.840.1.577157.3.579.2. 196 1945 Unknown [id number] 2.16.840.1.296767.3.579.2. 196 1945 Unknown [id number] 2.16.840.1.128084.3.579.2. 196 1945 Unknown [id number] 2.16.840.1.101635.3.579.2. 1259 1945 Unknown [id number] 2.16.840.1.258944.3.579.2. 9 1945 Unknown [id number] 2.16.840.1.983294.3.579.2. 1258 1945 Unknown [id number] 2.16.840.1.433627.3.579.2. 125 1945 Unknown [id number] 2.16.840.1.509697.3.579.2. 125 1945 Unknown [id number] 2.16.840.1.448692.3.579.2. 727 Medicare Medicare Outpatient [id number] [id number] Unknown [place] [id number] Unknown [id number] 2.16.840.1.168374.3.579.2. 531 Unknown [id number] 2.16.840.1.747073.3.579.2. 531 Unknown [id number] 2.16.840.1.738494.3.579.2. 531 Plan of Treatment Date Care Activity Detail Author Start: 09-12-2027 Screening for malign ant neoplasm of colon [facility] Start: 09-06-2024 Medicare Annual Well ness (AWV) Medicare Annual Wellness (AWV) [facility] Start: 11-07-2023 End: 11-07-2023 Patient encounter procedure 11/07/2023 2:30 PM EST Office Visit [facility] [address] [place] [address] Shaikh Denis MD [address] [place] [id number] [facility] Start: 10-17-2023 End: 10-17-2023 Patient encounter procedure 10/17/2023 10:15 AM EST Office Visit [facility] [address] [place] [address] Shaikh Denis MD [address] [place] [phone] Arrived [facility] Comment on above: Arrived Start: 1945 Screening for malign ant neoplasm of colon [facility] Problems Active Problems Problem Classification Problem Date Documented Da te Episodic/Chronic Abdominal hernia (2 sources) Diaphragmatic hernia; Translations: [Diaphragmatic hernia without obstruction or gangrene] Onset: 4 Episodic Cardiac dysrhythmias (9 sources) Unspecified atrial fibrillation; Translations: [Paroxysmal atrial fibrillation] Onset: 2 09-06-2023 Chronic Chronic obstructive pulmonary disease and bronchiectasis (8 sources) Chronic obstructive pulmonary disease, unspecified; Translations: [Centrilobular emphysema] Onset: 2 Chronic Conduction disorders (4 sources) Presence of cardiac pacemaker; Translations: [Encounter for checking and testing of cardiac pacemaker pulse generator [battery]] Onset: 1 Chronic Congestive heart failure; nonhypertensive (2 sources) Chronic diastolic (congestive) heart failure; Translations: [Congestive heart failure] Onset: 3 03-01-2024 Chronic Coronary atherosclerosis and other heart disease (3 sources) Atherosclerotic heart disease of [place] coronary artery without angina pectoris; Translations: [Coronary atherosclerosis] Onset: 2 09-06-2023 Chronic Deficiency and other anemia (2 sources) Iron deficiency anemia; Translations: [Iron deficiency anemia, unspecified] Onset: 4 Episodic Disorders of lipid metabolism (1 source) Hyperlipidemia, unspecified; Translations: [HYPERLIPIDEMIA UNSPECIFIED] Onset: 3 Chronic Esophageal disorders (2 sources) Gastroesophageal reflux disease without esophagitis; Translations: [Gastro-esophageal reflux disease without esophagitis] Onset: 4 Chronic Essential hypertension (2 sources) Essential hypertension; Translations: [Essential (primary) hypertension] Onset: 2 09-06-2023 Chronic Gastroduodenal ulcer (except hemorrhage) (3 sources) Peptic ulcer; Translations: [Peptic ulcer, site unspecified, unspecified as acute or chronic, without hemorrhage or perforation] Onset: 3 09-06-2023 Chronic Headache; including migraine (1 source) Migraine 01-11-2023 Chronic Headache; including migraine (3 sources) Headache; including migraine; Translations: [HEADACHE UNSPECIFIED] Onset: 3 Hepatitis (6 sources) Nonalcoholic steatohepatitis; Translations: [Nonalcoholic steatohepatitis (LOJA)] Onset: 1 Resolved: 2 Chronic Hypertension with complications and secondary hypertension (1 source) Hypertensive heart disease with heart failure; Translations: [HTN HEART DISEASE W/HEART FAIL] Onset: 3 Chronic Mood disorders (1 source) Depressive disorder 01-11-2023 Chronic Comment on above: Per pt she had a armando ght of depresseion after her but she denies any chronic depression. Nonspecific chest pain (1 source) Chest pain, unspecified; Translations: [CHEST PAIN UNSPECIFIED] Onset: 3 Episodic Nutritional deficiencies (1 source) Vitamin D deficiency 01-10-2023 Chronic Osteoarthritis (5 sources) Arthritis of acromioclavicular joint; Translations: [Primary osteoarthritis, right shoulder] Onset: 3 09-06-2023 Chronic Other aftercare (4 sources) Encounter for therapeutic drug level monitoring; Translations: [ENC THERAPEUTC DRUG LEVL MONITORING] Onset: 3 Episodic Other aftercare (1 source) application engineer (current) use of anticoagulants; Translations: [SHELTER CURRNT USE 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] Onset: 3 Episodic Other aftercare (1 source) Other musculoskeletal physiotherapist (current) drug therapy; Translations: [OTH OCCUPATIONAL REHABILITATION AIDE CURRENT DRUG THERAPY] Onset: 3 Episodic Other circulatory disease (1 source) Vascular insufficiency 01-10-2023 Episodic Other gastrointestinal disorders (1 source) Abnormal feces; Translations: [Other fecal abnormalities] Onset: 4 Episodic Other gastrointestinal disorders (1 source) Occult blood in stools 03-01-2024 Episodic Other hematologic conditions (1 source) Other [...] NEC] Onset: 3 Chronic Other liver diseases (2 sources) Steatosis of liver; Translations: [Fatty (change of) liver, not elsewhere classified] Onset: 3 09-06-2023 Chronic Comment on above: non alcoholic Other nervous system disorders (2 sources) Chronic [...] nutritional; endocrine; and metabolic disorders (2 sources) Hypocalcemia; Translations: [Hypocalcemia] Onset: 3 09-06-2023 Chronic Other nutritional; endocrine; and metabolic disorders (1 source) Obesity; Translations: [Obesity, unspecified] Onset: 3 09-06-2023 Chronic Other nutritional; endocrine; and metabolic disorders (1 source) Body mass index 40+ - severely obese 03-02-2024 Chronic Other nutritional; endocrine; and metabolic disorders (1 source) Obese class III 03-02-2024 Chronic Other screening for suspected conditions (not [...] Translations: [OBSTRUCTIVE SLEEP APNEA] Onset: 2 Chronic Residual codes; unclassified (2 sources) H/O: Disorder; Translations: [Personal history of other specified conditions] Onset: 4 Episodic Screening and history of mental health and substance abuse codes (1 source) Personal history of nicotine dependence; Translations: [PERSONAL HISTORY OF NICOTINE DEPEND] Onset: 3 Episodic Spondylosis; intervertebral disc disorders; other back problems (12 sources) Cervical spondylosis; Translations: [Spondylosis without myelopathy or radiculopathy, cervical region] Onset: 3 Chronic Spondylosis; intervertebral disc disorders; other back problems (7 sources) Cervical radiculopathy; Translations: [Radiculopathy, cervical region] [...] cardiac pacemaker pulse generator [battery]] Onset: 3 Viral infection (1 source) Herpes zoster 01-10-2023 Episodic Comment on above: 05/2019 Past or Other Problems Problem Classification Problem [...] COUGH, UNSPECIFIED; Translations: [COUGH, UNSPECIFIED] Onset: 03-30-2022 Procedures Date Procedure Procedure Detail Performing Clinician Start: 10-11-2023 XR pre/post mri xray MD Shaikh Denis Work Phone: Start: 10-11-2023 MR lumbar spine wo con MD Shaikh Denis Work Phone: Start: 03-01-2023 Follow-up visit Follow-up YANCY OLEA Start: 09-20-2021 Cardiac pacemaker, d evice (physical object) Ortega ALEXANDER Comment on above: Dr. Kaur Start: 10-13-2020 INSERT PACE. SKYLER CH AM IN CHEST SUBCU/FASCIA, OPEN YANCY HENNESSY Start: 10-13-2020 INSERTION OF PACEMAK ER LEAD INTO R VENTRICLE, PERC APPROACH YANCY HENNESSY Start: 10-13-2020 INSERTION OF PACEMAK ER LEAD INTO RIGHT ATRIUM, PERC APPROACH YANCY HENNESSY Start: 09-12-2017 Colonoscopy Shaikh Dominique eid MD Work Phone: Start: 09-12-2003 History of right tot al knee replacement Ortega ALEXANDER Start: 09-12-2001 History of left tota l knee replacement Ortega ALEXANDER Appendectomy Ortega ALEXANDER Arthroscopy of knee Ortega ALEXANDER Comment on above: 06/2012 Arthroscopy of shoulder Brice parikhankur ALEXANDER Comment on above: left shoulder tear r epaired 08/25 Cardiac catheter (ph ysical object) Ortega ALEXANDER Comment on above: 12/21/ mild CAD Colonoscopy Ortega ALEXANDER Comment on above: 2012 repeat 10 years Ligation of fallopian tube Nathan ALEXANDER Repair of musculoten dinous cuff of shoulder Ortega ALEXANDER Comment on above: right Total abdominal hyst erectomy with bilateral salpingo-oophorectomy Ortega ALEXANDER Results Test Name Value Interpretation Reference Range Facility Consent for Procedure/Surger yon 03-05-2024 Consent for Procedure/Surgery [id number] #1.00TIFF Normal [facility] Ambulatory Visit Summaryon 0 03-02-2024 Ambulatory Visit Summary BREANN STARKS :1945 Visit Date:03/02/2024 Ambulatory Visit Instructions Your Care Team Attending Physician - Ortega ALEXANDER MD Primary Care Physician - Barbara Dai Referring Physician - CIRA CUBA, SAHU This Is Your Medications List Contact prescribing physician if questions or concerns acetaminophen-hydroc odone (acetaminophen-hydro codone 325 mg-5 mg oral tablet) apixaban (Eliquis 5 mg oral tablet) baclofen (baclofen 10 mg Tab) cholecalciferol (Vitamin D3 5000 intl units (125 mcg) oral tab) flecainide (flecainide 100 mg Tab) furosemide (Lasix 40 mg Tab) multivitamin with minerals (Centrum Women 50 Plus Multigummies oral tablet, chewable) omeprazole (omeprazole 40 mg Cap-DR) spironolactone (spironolactone 25 mg Tab) verapamil (verapamil 180 mg Cap-ER) Procedures Performed Cardiac pacemaker (09/20/2021), History of right total knee replacement (09/12/2003), History of left total knee replacement (09/12/2001), Appendectomy, Arthroscopy of knee, Arthroscopy of shoulder, Cardiac catheter, Colonoscopy, Ligation of fallopian tube, Rotator cuff repair, YANELI BSO - Total abdominal hysterectomy and bilateral salpingo-oophorectom y. Discharge Vitals Heart Rate (Peripheral) 71 Respiratory Rate 16 Blood Pressure 118/75 Height 141 cm Height 56 in Weight 107.6 kg Weight 236.72 lb BMI 54.12 Medications What How Much When Instructions Unchanged acetaminophen-hydroc odone (acetaminophen-hydro codone 325 mg-5 mg oral tablet) 1 Tablets By Mouth 2 times a day Contact prescribing physician if questions or concerns Unchanged apixaban (Eliquis 5 mg oral tablet) 1 Tablets By Mouth 2 times a day Contact prescribing physician if questions or concerns Unchanged baclofen (baclofen 10 mg Tab) 1 Tablets By Mouth 3 times a day Contact prescribing physician if questions or concerns Unchanged cholecalciferol (Vitamin D3 5000 intl units (125 mcg) oral tab) 1 Tablets By Mouth Every day Contact prescribing physician if questions or concerns Unchanged flecainide (flecainide 100 mg Tab) 1 Tablets By Mouth Every 12 hours Contact prescribing physician if questions or concerns Unchanged furosemide (Lasix 40 mg Tab) 1 Tablets By Mouth Every day Contact prescribing physician if questions or concerns Unchanged multivitamin with minerals (Centrum Women 50 Plus Multigummies oral tablet, chewable) Contact prescribing physician if questions or concerns Unchanged omeprazole (omeprazole 40 mg Cap-DR) 1 Capsules By Mouth Every day Contact prescribing physician if questions or concerns Unchanged spironolactone (spironolactone 25 mg Tab) 1 Tablets By Mouth Every day Contact prescribing physician if questions or concerns Unchanged verapamil (verapamil 180 mg Cap-ER) 1 Capsules By Mouth Every day Contact prescribing physician if questions or concerns Allergies No Known Allergies No Known Medication Allergies Problems Ongoing - Any problem that you are currently receiving treatment for. Atrial fibrillation BMI 50.0-59.9, adult Cervical radiculopathy CHF (congestive heart failure) Chronic obstructive pulmonary disease Class 3 obesity Coronary atherosclerosis Essential hypertension Fatty liver Gastric ulcer Hiatal hernia Hypocalcemia Osteoarthritis of both knees Osteoarthritis of lumbar spine Peptic ulcer disease Positive fecal occult blood test PSVT (paroxysmal supraventricular tachycardia) Shingles Sinus node dysfunction Spinal stenosis Venous insufficiency Vitamin D deficiency Historical - Any problem that you are no longer receiving treatment for. Depression Migraines Patient Survey You may receive a survey via text or e-mail asking about your office visit. Please share your experience with us by completing your survey. We appreciate your feedback and thank you for choosing us for your care. [facility] ED Note-Physicianon 03-02-20 24 ED Note-Physician [id number]# 1.00TIFF [facility] Insurance Correspondenceon 0 03-02-2024 Insurance Correspondence [id number]#1.00TIFF [facility] Lab Reportson 03-02-2024 Lab Reports [id number] #1.00TIFF [facility] 36on 01-25-2024 36 Patient called stating ever since her device was adjusted last month she's had this weird feeling in her throat. I called Sony Asif from [employer] and he told me this feeling she's having should not be from her device. Patient informed. I suggested she see PCP for this. She verbalized understanding. Normal [facility] Office Visiton 01-17-2024 Follow-up visit [id number] Breann Satrks 1945 F Date Provider Department Center 01/17/2024 NICANOR REGAN Family History Adopted: Yes Family history unknown: Yes Family Status - Relation Status Age at Mother Father Level of Service:75649 SC OFFICE/OUTPATIENT ESTABLISHED MOD MDM 30 MIN Reason for Visit and Comments: Atrial Fibrillation [80] Normal [facility] XR lumbar spine 6V w bending on 11-16-2023 XR lumbar spine 6V w bending [facility] Main [place] [id number] XRay Report Signed Patient: Breann Starks MR#: [id number] : 1945 Acct:[id number] Age/Sex: 77 / F ADM Date: 11/16/23 Loc: XD Room: Type: [facility] Attending Dr: Kayley DESIR Copies to: THANG [...] Benton Jr., D.OMeena11/16/2023 4:37 PM Dictation Location: [place] [address] Transcribed By: [facility] 11/16/23 1637 Dictated By: Francisco J Benton Jr, DO 11/16/23 1636 Signed By: 11/16/23 1637 [facility] MR lumbar spine wo conon MR lumbar spine wo con [facility] [place] [address] XRay Report Signed Patient: Breann Starks MR#: [id number] : 1945 Acct:[id number] Age/Sex: 77 / F ADM Date: 10/11/23 Loc: Room: Type: [facility] Attending Dr: Claire DESIR Copies to: THANG Porter Ordering Provider: THANG Porter Date of Service: 10/11/23 MR/MR lumbar spine wo con: LUMBAR RADICULPATHY ([id number]) XR/XR pre/post mri xray: LUMBAR RADICULPATHY CLINICAL [...] Eleanor Reece M.D.10/11/2023 4:10 PM Dictation Location: [place] [address] Transcribed By: [facility] 10/11/23 161 Dictated By: Eleanor Reece MD 10/11/23 1133 Signed By: 10/11/23 1610 [facility] Office Visiton 07-05-2023 Follow-up visit [id number] Breann Starks 1945 F Date Provider Department Center 07/05/2023 YANCY IVERSON Family History Adopted: Yes Family history unknown: Yes Family Status - Relation Status Age at Mother Father Level of Service:55702 SC OFFICE/OUTPATIENT ESTABLISHED LOW MDM 20-29 MIN [facility] Office Visiton 03-01-2023 Follow-up visit [id number] Breann Starks 1945 F Date Provider Department Center 03/01/2023 YANCY IVERSON Family History Adopted: Yes Family history unknown: Yes Family Status - Relation Status Age at Mother Father Level of Service:69695 SC OFFICE/OUTPATIENT ESTABLISHED MOD MDM 30-39 MIN Reason for Visit and Comments: Follow-up [223313] - 3 month follow up Normal [facility] XR LSPINE W_OBLS AND FLEX_EX Ton [...] by: PAULA DELGADO Date: 2023-01-31 11:34 Normal [facility] LIPID PROFILEon 12-16-2022 CHOL-HDL RATIO NORM SEE BELOW Normal [facility] Comment on above: Result Comment: 3.3 - 4.4 LOW RISK 4.4 - 7.1 AVERAGE RISK 7.1 - 11.0 MODERATE RISK >11.0 HIGH RISK Performed By: #### L IPID ####[facility] [address] [place] [address]Dr. Erasmo Smith Cholesterol [Mass/Vol] 105 mg/dL Normal <=200 [facility] Comment on above: Performed By: #### L IPID ####[facility] [address] [place] [address]Dr. Erasmo Smith Cholesterol in HDL [Mass/Vol] 48 mg/dL Normal 40-60 [facility] Comment on above: Performed By: #### L IPID ####[facility] [address] [place] [address]Dr. Erasmo Smith Cholesterol in LDL [Mass/Vol] 48.2 mg/dL Normal [facility] Comment on above: Performed By: #### L IPID ####[facility] [address] [place] [address]Dr. Erasmo Smith Cholesterol.total/Chol esterol in HDL [Mass ratio] 2.2 {ratio} Normal [facility] Comment on above: Performed By: #### L IPID ####[facility] [address] [place] [address]Dr. Erasmo Smith HDL NORMAL > or = 60 mg/dl - LOW CARDIOVASCULAR RISK <40 mg/dl - HIGH CARDIOVASCULAR RISK Normal [facility] Comment on above: Performed By: #### L IPID ####[facility] [address] [place] [address]Dr. Erasmo Smith LDL CALC NORMAL SEE BELOW Normal [facility] Comment on above: Result Comment: <100 mg/dl OPTIMAL 100 - 129 mg/dl NEAR OR ABOVE OPTIMAL 130 - 159 mg/dl BORDERLINE HIGH 160 - 189 mg/dl HIGH >190 mg/dl VERY HIGH Performed By: #### L IPID ####[facility] [address] [place] [address]Dr. Erasmo Smith Triglyceride [Mass/Vol] 44 mg/dL Normal <=150 [facility] Comment on above: Performed By: #### L IPID ####[facility] [address] [place] [address]Dr. Erasmo Smith VLDL CALC 8.8 mg/dL Normal [facility] Comment on above: Performed By: #### L IPID ####[facility] [address] [place] [address]Dr. Erasmo Smith CULTURE BLOODon 12-04-2022 Microscopic examination of blood, [...] Trimethoprim/Sulfame thoxazole <=20 S F Normal [facility] Comment on above: Performed By: #### B LDCX1 ####[facility] [address] [place] [address]Dr. Erasmo Smith BNPon 12-03-2022 Natriuretic peptide B (Bld) [Mass/Vol] 413.0 pg/mL Normal <=1,800.0 [facility] Comment on above: Performed By: #### B DICTIONARY EDITOR #### [facility] [address] [place] [address] Dr. Erasmo Smith CBC AUTO DIFFon 12-03-2022 BASO # 0.0 103/ul Normal 0.0-0.1 [facility] Comment on above: Performed By: #### C BC ####[facility] [address] [place], [place] [address]Dr. Erasmo Smith Basophils/100 WBC (Bld) 0.2 % Normal 0.2-2.0 [facility] Comment on above: Performed By: #### C BC ####[facility] [address] [place], [place] [address]DrMeena Smith EO # 0.4 103/ul Normal 0.0-0.7 [facility] Comment on above: Performed By: #### C BC ####[facility] [address] [place], [place] [address]DrMeena Smith Eosinophils/100 WBC (Bld) 2.1 % Normal 0.9-7.0 [facility] Comment on above: Performed By: #### C BC ####[facility] [address] [place], [place] [address]DrMeena Smith Erythrocyte distribution width (RBC) [Ratio] 17.2 % Critically high 11.0-15.0 [facility] Comment on above: Performed By: #### C BC ####[facility] [address] [place] [address]Dr. Erasmo Smith Hematocrit (Bld) [Volume fraction] 29.2 % Critically low 36.0-48.0 [facility] Comment on above: Performed By: #### C BC ####[facility] [address] [place] [address]Dr. Erasmo Smith Hemoglobin (Bld) [Mass/Vol] 9.5 g/dL Critically low 12.0-16.0 [facility] Comment on above: Performed By: #### C BC ####[facility] [address] [place], [place] [address]Dr. Erasmo Smith IG # 0.13 10e3/ul Critically high 0.00-0.03 [facility] Comment on above: Performed By: #### C BC ####[facility] [address] [place], [place] [address]Dr. Erasmo Smith IG % 0.8 % Critically high 0.0-0.5 [facility] Comment on above: Performed By: #### C BC ####[facility] [address] [place], [place] [address]Dr. Erasmo Smith LYMPH # 1.8 103/ul Normal 1.2-3.8 [facility] Comment on above: Performed By: #### C BC ####[facility] [address] [place], [place] [address]Dr. Erasmo Smith Lymphocytes/100 WBC (Bld) 10.3 % Critically low 20.5-60.0 [facility] Comment on above: Performed By: #### C BC ####[facility] [address] [place], [place] [address]Dr. Erasmo Smith MANUAL DIFF REQ NO Normal [facility] Comment on above: Performed By: #### C BC ####[facility] [address] [place], [place] [address]Dr. Erasmo Smith MCH (RBC) [Entitic mass] 25.7 pg Critically low 26.7-34.0 [facility] Comment on above: Performed By: #### C BC ####[facility] [address] [place] [id number]. Heavenean Smith MCHC (RBC) [Mass/Vol] 32.5 g/dL Normal 29.9-35.2 [facility] Comment on above: Performed By: #### C BC ####[facility] [address] [place] [address]Dr. Erasmo Smith MCV (RBC) [Entitic vol] 79.1 fL Critically low 81.0-99.0 [facility] Comment on above: Performed By: #### C BC ####[facility] [address] [place] [address]Dr. Erasmo Smith MONO # 1.5 103/ul Critically high 0.3-0.8 [facility] Comment on above: Performed By: #### C BC ####[facility] [address] [place] [address]Dr. Erasmo Smith Monocytes/100 WBC (Bld) 8.7 % Normal 1.7-12.0 [facility] Comment on above: Performed By: #### C BC ####[facility] [address] [place], [place] [address]Dr. Erasmo Smith NEUT # 13.4 103/ul Critically high 1.4-6.5 [facility] Comment on above: Performed By: #### C BC ####[facility] [address] [place] [address]Dr. Erasmo Smith Neutrophils/100 WBC (Bld) 77.9 % Critically high 43.0-75.0 [facility] Comment on above: Performed By: #### C BC ####[facility] [address] [place] [address]Dr. Erasmo Smith Platelet mean volume (Bld) [Entitic vol] 9.3 fL Critically low 9.5-13.5 [facility] Comment on above: Performed By: #### C BC ####[facility] [address] [place] [address]Dr. Erasmo Smith PLT 205 103/ul Normal 150-450 [facility] Comment on above: Performed By: #### C BC ####[facility] [address] [place], [place] [address]ElMeena Smith RBC 3.69 106/ul Critically low 4.20-5.40 [facility] Comment on above: Performed By: #### C BC ####[facility] [address] [place], [place] [address]NwMeena Smith WBC 17.2 103/ul Critically high 4.0-11.0 [facility] Comment on above: Performed By: #### C BC ####[facility] [address] [place], [place] [address]NpMeena Smith MAGNESIUMon 12-03-2022 Magnesium [Mass/Vol] 1.9 mg/dL Normal 1.8-2.4 [facility] Comment on above: Performed By: #### B DICTIONARY EDITOR #### [facility] [address] [place] [address] [address] Erasmo Smith PROF 14(COMP METB)on 023 Albumin [Mass/Vol] 2.6 g/dL Critically low 3.4-5.0 [facility] Comment on above: Performed By: #### B DICTIONARY EDITOR #### [facility] [address] [address] [address] Erasmo Smith Albumin/Globulin [Mass ratio] 0.6 {ratio} Normal [facility] Comment on above: Performed By: #### B DICTIONARY EDITOR #### [facility] [address] [address] [address] Erasmo Smith ALP [Catalytic activity/Vol] 123 U/L Critically high 46-116 [facility] Comment on above: Performed By: #### B DICTIONARY EDITOR #### [facility] [address] [place] [address] [address] Erasmo Smith ALT [Catalytic activity/Vol] 28 U/L Normal 14-59 [facility] Comment on above: Performed By: #### B DICTIONARY EDITOR #### [facility] [address] [place] [address] Dr. Erasmo Smith Anion gap [Moles/Vol] 9.4 mmol/L Normal [facility] Comment on above: Performed By: #### B DICTIONARY EDITOR #### [facility] [address] [address] [address] Erasmo Smith AST [Catalytic activity/Vol] 21 U/L Normal 15-37 [facility] Comment on above: Performed By: #### B DICTIONARY EDITOR #### [facility] [address] [address] [address] Erasmo Smith Bilirubin [Mass/Vol] 0.3 mg/dL Normal 0.2-1.0 [facility] Comment on above: Performed By: #### B DICTIONARY EDITOR #### [facility] [address] [address] [address] Erasmo Smith Calcium [Mass/Vol] 8.3 mg/dL Critically low 8.5-10.1 [facility] Comment on above: Performed By: #### B DICTIONARY EDITOR #### [facility] [address] [place] [address] [address] Erasmo Smith Chloride [Moles/Vol] 105 mmol/L Normal 98-107 [facility] Comment on above: Performed By: #### B DICTIONARY EDITOR #### [facility] [address] [address] [address] Erasmo Smith CO2 [Moles/Vol] 27.1 mmol/L Normal 21.0-32.0 [facility] Comment on above: Performed By: #### B DICTIONARY EDITOR #### [facility] [address] [place] [address] [address] Erasmo Smith Creatinine [Mass/Vol] 0.55 mg/dL Normal 0.55-1.02 [facility] Comment on above: Performed By: #### B DICTIONARY EDITOR #### [facility] [address] [address] [address] Erasmo Smith EGFR-AF BENINESE >60 Normal >=60 [facility] Comment on above: Performed By: #### B DICTIONARY EDITOR #### [facility] [address] [address] [address] Erasmo Smith EGFR-NON AF BENINESE >60 Normal >=60 [facility] Comment on above: Performed By: #### B DICTIONARY EDITOR #### [facility] [address] [place] [address] [address] Erasmo Smith Globulin (S) [Mass/Vol] 4.0 g/dL Normal [facility] Comment on above: Performed By: #### B DICTIONARY EDITOR #### [facility] [address] [place] [address] [address] Erasmo Smith Glucose [Mass/Vol] 132 mg/dL Critically high 74-106 [facility] Comment on above: Performed By: #### B DICTIONARY EDITOR #### [facility] [address] [place] [address] [address] Erasmo Smith Potassium [Moles/Vol] 3.5 mmol/L Normal 3.5-5.1 [facility] Comment on above: Performed By: #### B DICTIONARY EDITOR #### [facility] [address] [place] [address] Dr. Erasmo Smith Protein [Mass/Vol] 6.6 g/dL Normal 6.4-8.2 [facility] Comment on above: Performed By: #### B DICTIONARY EDITOR #### [facility] [address] [place] [address] Dr. Erasmo Smith Sodium [Moles/Vol] 138 mmol/L Normal 136-145 [facility] Comment on above: Performed By: #### B DICTIONARY EDITOR #### [facility] [address] [place] [address] Dr. Erasmo Smith Urea nitrogen [Mass/Vol] 24.0 mg/dL Critically high 7.0-18.0 [facility] Comment on above: Performed By: #### B DICTIONARY EDITOR #### [facility] [address] [place] [address] Dr. Erasmo Smith Urea nitrogen/Creatinine [Mass ratio] 43.6 mg/mg Normal [facility] Comment on above: Performed By: #### B DICTIONARY EDITOR #### [facility] [address] [place] [address] Dr. Erasmo Smith PROTIMEon 12-03-2022 INR Coag (PPP) [Relative time] 4.41 {INR} Critically high [facility] Comment on above: Performed By: #### C MREP #### [facility] [address] [place] [address] [address] Erasmo Smith INR GUIDELINES SEE BELOW Normal [facility] Comment on above: Result Comment: ABNER RED INR: 2.0 - 3.0 CONDITIONS NOT LISTED BELOW 2.5 - 3.5 FOR PROSTHETIC HEART VALVE REPLACEMENT 2.5 - 3.5 RECURRENT THROMBOSIS Performed By: #### C MREP #### [facility] [address] [place] [address] [address] Erasmo Smith PT Coag (PPP) [Time] 43.0 s Critically high 9.0-11.6 [facility] Comment on above: Performed By: #### C MREP #### [facility] [address] [place] [address] [address] Erasmo Smith BLOOD CULTURE ID PANELon A. baumannii Not detected Normal NOT DETECTED [facility] Comment on above: Performed By: #### B CID2 ####[facility] [address] [place] [address]Dr. Erasmo Smith Bacteriodes fragilis Not detected Normal NOT DETECTED [facility] Comment on above: Performed By: #### B CID2 ####[facility] [address] [place] [address]Dr. Erasmo Smith BCID CONTROLS PASSED Normal [facility] Comment on above: Performed By: #### B CID2 ####[facility] [address] [place] [address]Dr. Erasmo Smith BCIDBTHD BLOOD CULTURE BOTTLE INFORMATION Normal [facility] Comment on above: Performed By: #### B CID2 ####[facility] [address] [place] [address]Dr. Erasmo Smith BCIDHD1 ANTIMICROBIAL RESISTANCE GENES Normal [facility] Comment on above: Performed By: #### B CID2 ####[facility] [address] [place] [address]Dr. Erasmo Smith BCIDHD2 SEE BELOW Normal [facility] Comment on above: Result Comment: Note : Antimicrobial resitance can occur via multiple mechanisms. A Not Detected result for the [employer] antomicrobial resistance gene assays does not indicate antimicrobial susceptibility. Subculturing is required for species identification and susceptibility testing of isolates. Performed By: #### B CID2 ####[facility] [address] [place] [address]Dr. Erasmo Smith BCIDHD3 Positive Normal [facility] Comment on above: Performed By: #### B CID2 ####[facility] [address] [address]Dr. Erasmo Smith BCIDHD4 Negative Normal [facility] Comment on above: Performed By: #### B CID2 ####[facility] [address] [address]Dr. Erasmo Smith BCIDHD5 YEAST Normal [facility] Comment on above: Performed By: #### B CID2 ####[facility] Sqyziieymj[address] [place], [place] [address]Dr. Erasmo Smith Bottle Set: Set 1 Normal [facility] Comment on above: Performed By: #### B CID2 ####[facility] Pibsudwaay[address] [place], [place] [address]Dr. Erasmo Smith Bottle: Anaerobic Normal [facility] Comment on above: Performed By: #### B CID2 ####[facility] Tvzrvyrmiz[address] [place], [place] [address]Dr. Erasmo Smith C. neoformans/gattii Not detected Normal NOT DETECTED [facility] Comment on above: Performed By: #### B CID2 ####[facility] Fpzhpbzqxi[address] [place], [place] [address]Dr. Erasmo Smith Naye albicans Not detected Normal NOT DETECTED [facility] Comment on above: Performed By: #### B CID2 ####[facility] [address]qlpa[address] [address]Dr. Erasmo Smith Naye auris Not detected Normal NOT DETECTED The [facility] Comment on above: Performed By: #### B CID2 ####[facility] Pspkyjuknd[address] [place], [place] [address]Dr. Erasmo Smith Naye glabrata Not detected Normal NOT DETECTED [facility] Comment on above: Performed By: #### B CID2 ####[facility] Huzehmkkjh[address] [place], [place] [address]Dr. Yiean Smith Naye Krusei Not detected Normal NOT DETECTED The [facility] Comment on above: Performed By: #### B CID2 ####[facility] Jqjzkznfgu[address] [place], [place] [address]Dr. Erasmo Smith Naye Parapsilosis Not detected Normal NOT DETECTED [facility] Comment on above: Performed By: #### B CID2 ####[facility] Kbwxwayojr[address] [place], [place] [address]Dr. Heavenean Luis Naye Tropicalis Not detected Normal NOT DETECTED [facility] Comment on above: Performed By: #### B CID2 ####[facility] Sbhtweochs[address] [place], [place] [address]Dr. Erasmo Smith CTX-M Resistant Gene Not Applicable Normal NOT DETECTE D [facility] Comment on above: Performed By: #### B CID2 ####[facility] Zxydedosry068[address] [place], [place] [address]Dr. Erasmo Smith E. Cloacae complex Not detected Normal NOT DETECTED [facility] Comment on above: Performed By: #### B CID2 ####[facility] Zksssmdwxe450[address] [place], [place] [address]Dr. Erasmo Smith E. faecalis Not detected Normal NOT DETECTED The [facility] Comment on above: Performed By: #### B CID2 ####[facility] Vglihyeumf[address] [place], [place] [address]Dr. Erasmo Smith E. faecium Not detected Normal NOT DETECTED The [facility] Comment on above: Performed By: #### B CID2 ####[facility] Ceeqasbkzi07[address] [place], [place] [address]Dr. Erasmo Smith Enterobacteriaceae Detected Critically abnormal NOT DETECTED [facility] Comment on above: Performed By: #### B CID2 ####[facility] Scuakycqez318[address] [place], [place] [address]Dr. Erasmo Smith Escherichia coli Detected Critically abnormal NOT DETECTED [facility] Comment on above: Performed By: #### B CID2 ####[facility] Ottcpsrjfx375[address] [place], [place] [address]Dr. Erasmo Smith H. influenzae Not detected Normal NOT DETECTED The [facility] Comment on above: Performed By: #### B CID2 ####[facility] Bjyehpuyrw434[address] [place], [place] [address]Dr. Erasmo Smith IMP Resistant Gene Not Applicable Normal NOT DETECTED [facility] Comment on above: Performed By: #### B CID2 ####[facility] Hspsgmfpgf229[address] [place], [place] [address]Dr. Erasmo Luis K. oxytoca Not detected Normal NOT DETECTED [facility] Comment on above: Performed By: #### B CID2 ####[facility] Slwxokmvvt914[address] [place], [place] [address]Dr. Heavenean Smith K. pneumoniae Not detected Normal NOT DETECTED The [facility] Comment on above: Performed By: #### B CID2 ####[facility] Udqksyfhlr7[address] [place], [place] [address]Dr. Heavenean Smith Klebsiella aerogenes Not detected Normal NOT DETECTED [facility] Comment on above: Performed By: #### B CID2 ####[facility] Maiibhfqye0039[address] [place], [place] [address]Dr. Erasmo Luis KPC Resistant Gene Not detected Normal NOT DETECTED [facility] Comment on above: Performed By: #### B CID2 ####[facility] Wdsnyermvy597[address] [place], [place] [address]Dr. Erasmo mSith List. monocytogenes Not detected Normal NOT DETECTED [facility] Comment on above: Performed By: #### B CID2 ####[facility] Yaabgtiggs162[address] [place], [place] [address]Dr. Ersamo Luis Mcr-1 Resistant Gene Not Applicable Normal NOT DETECTE D [facility] Comment on above: Performed By: #### B CID2 ####[facility] Dospmhcrwv225[address] [place], [place] [address]Dr. Erasmo Smith mecA/C Not Applicable Normal NOT DETECTED The [facility] Comment on above: Performed By: #### B CID2 ####[facility] Eiuikpohbf709[address] [place], [place] [address]Dr. Erasmo Smith mecA/C MREJ Not Applicable Normal NOT DETECTED The [facility] Comment on above: Performed By: #### B CID2 ####[facility] [address] [address]Dr. Erasmo Smith N. meningitidis Not detected Normal NOT DETECTED The [facility] Comment on above: Performed By: #### B CID2 ####[facility] Jtbweajwzf7[address] [place], [place] [address]Dr. Erasmo Smith NDM Resistant Gene Not Applicable Normal NOT DETECTED [facility] Comment on above: Performed By: #### B CID2 ####[facility] Icarlqhomv938[address] [place], [place] [address]Dr. Erasmo Smith Oxa-48-like Not Applicable Normal NOT DETECTED The [facility] Comment on above: Performed By: #### B CID2 ####[facility] Kexojeuzyy22[address] [place], [place] [address]Dr. Erasmo Smith Proteus Not detected Normal NOT DETECTED [facility] Comment on above: Performed By: #### B CID2 ####[facility] Hagmdvtawg[address] [place], [place] [address]Dr. Erasmo Smith Pseud. aeruginosa Not detected Normal NOT DETECTED [facility] Comment on above: Performed By: #### B CID2 ####[facility] Riohyvzudh[address] [place], [place] [address]Dr. Erasmo Smith S. maltophilia Not detected Normal NOT DETECTED The [facility] Comment on above: Performed By: #### B CID2 ####[facility] Vrveutjpme8845[address] [place], [place] [address]Dr. Erasmo Smith Salmonella Not detected Normal NOT DETECTED [facility] Comment on above: Performed By: #### B CID2 ####[facility] Afhenfajch404[address] [place], [place] [address]Dr. Erasmo Smith Seratia marcescens Not detected Normal NOT DETECTED [facility] Comment on above: Performed By: #### B CID2 ####[facility] Vjyjzcgypt0469[address] [place], [place] [address]Dr. Erasmo Smith Site: l ac Normal [facility] Comment on above: Performed By: #### B CID2 ####[facility] Drtcovwved9675[address] [place], [place] [address]Dr. Erasmo Luis Staph. aureus Not detected Normal NOT DETECTED The [facility] Comment on above: Performed By: #### B CID2 ####[facility] Asqabhvbxs[address] [place], [place] [address]Dr. Erasmo Luis Staph. epidermidis Not detected Normal NOT DETECTED [facility] Comment on above: Performed By: #### B CID2 ####[facility] Jsnuovqxgs576[address] [place], [place] [address]Dr. Erasmo Luis Staph. lugdunensis Not detected Normal NOT DETECTED [facility] Comment on above: Performed By: #### B CID2 ####[facility] Sygocjcuza020[address] [place], [place] [address]Dr. Erasmo Smith Staphylococcus Not detected Normal NOT DETECTED The [facility] Comment on above: Performed By: #### B CID2 ####[facility] Zvoyrhbsqx535[address] [place], [place] [address]Dr. Erasmo Smith Strep. agalactiae Not detected Normal NOT DETECTED [facility] Comment on above: Performed By: #### B CID2 ####[facility] Dztboonewq4812[address] [place], [place] [address]Dr. Erasmo Smith Strep. pneumoniae Not detected Normal NOT DETECTED [facility] Comment on above: Performed By: #### B CID2 ####[facility] Djdemnpkgt7535[address] [place], [place] [address]Dr. Erasmo Luis Strep. pyogenes Not detected Normal NOT DETECTED The [facility] Comment on above: Performed By: #### B CID2 ####[facility] Opvqsrejpc399[address] [place], [place] [address]Dr. Heavenean Smith Streptococcus Not detected Normal NOT DETECTED [facility] Comment on above: Performed By: #### B CID2 ####[facility] Rtwyswadtz365[address] [place], [place] [address]Dr. Erasmo Smith Fran/B Resist. Gene Not detected Normal NOT DETECTED [facility] Comment on above: Performed By: #### B CID2 ####[facility] [address] [address]Dr. Erasmo Smith VIM Resistant Gene Not Applicable Normal NOT DETECTED [facility] Comment on above: Performed By: #### B CID2 ####[facility] Yegzammvid[address] [place], [place] [address]Dr. Erasmo Smith BNPon 12-02-2022 Natriuretic peptide B (Bld) [Mass/Vol] 1059.0 pg/mL Normal <=1,800.0 [facility] Comment on above: Performed By: #### B DICTIONARY EDITOR #### [facility] [address] [address] [address] Erasmo Smith CBC AUTO DIFFon 12-02-2022 BASO # 0.0 103/ul Normal 0.0-0.1 [facility] Comment on above: Performed By: #### C BC ####[facility] Obljphyabx[address] [place], [place] [address]Dr. Erasmo Smith Basophils/100 WBC (Bld) 0.2 % Normal 0.2-2.0 [facility] Comment on above: Performed By: #### C BC ####[facility] Yguzsewdsp[address] [place], [place] [address]DrMeena Smith EO # 0.0 103/ul Normal 0.0-0.7 [facility] Comment on above: Performed By: #### C BC ####[facility] Fymutihbaj[address] [place], [place] [address]DrMeena Smith Eosinophils/100 WBC (Bld) 0.0 % Critically low 0.9-7.0 [facility] Comment on above: Performed By: #### C BC ####[facility] Omutadnvdr84[address] [place], [place] [address]Dr. Erasmo Smith Erythrocyte distribution width (RBC) [Ratio] 17.3 % Critically high 11.0-15.0 [facility] Comment on above: Performed By: #### C BC ####[facility] Ghccugvabn75[address] [place], [place] [address]DrMeena Smtih Hematocrit (Bld) [Volume fraction] 31.4 % Critically low 36.0-48.0 [facility] Comment on above: Performed By: #### C BC ####[facility] [address] [place] [address]Dr. Erasmo Smith Hemoglobin (Bld) [Mass/Vol] 10.0 g/dL Critically low 12.0-16.0 [facility] Comment on above: Performed By: #### C BC ####[facility] [address]belwa[address] [place] [address]Dr. Erasmo Smith IG # 0.06 10e3/ul Critically high 0.00-0.03 [facility] Comment on above: Performed By: #### C BC ####[facility] [address] [address]Dr. Heavenean Smith IG % 0.4 % Normal 0.0-0.5 [facility] Comment on above: Performed By: #### C BC ####[facility] [address]ts[address] [address]Dr. Erasmo Smith LYMPH # 1.3 103/ul Normal 1.2-3.8 [facility] Comment on above: Performed By: #### C BC ####[facility] [address] [address]Dr. Heavenean Smith Lymphocytes/100 WBC (Bld) 8.1 % Critically low 20.5-60.0 [facility] Comment on above: Performed By: #### C BC ####[facility] [address] [address]Dr. Erasmo Smith MANUAL DIFF REQ NO Normal [facility] Comment on above: Performed By: #### C BC ####[facility] [address] [place] [address]Dr. Erasmo Luis MCH (RBC) [Entitic mass] 25.6 pg Critically low 26.7-34.0 [facility] Comment on above: Performed By: #### C BC ####[facility] [address]pix[address]rbe[address] [place] [address]Dr. Erasmo Luis MCHC (RBC) [Mass/Vol] 31.8 g/dL Normal 29.9-35.2 [facility] Comment on above: Performed By: #### C BC ####[facility] [address] [place] [address]Dr. Erasmo Smith MCV (RBC) [Entitic vol] 80.3 fL Critically low 81.0-99.0 [facility] Comment on above: Performed By: #### C BC ####[facility] [address] [place] [address]Dr. Erasmo Smith MONO # 0.6 103/ul Normal 0.3-0.8 [facility] Comment on above: Performed By: #### C BC ####[facility] [address] [place] [address]Dr. Erasmo Luis Monocytes/100 WBC (Bld) 3.7 % Normal 1.7-12.0 [facility] Comment on above: Performed By: #### C BC ####[facility] [address]zawzhvq[address] [place], [place] [address]Dr. Erasmo Smith NEUT # 14.5 103/ul Critically high 1.4-6.5 The [facility] Comment on above: Performed By: #### C BC ####[facility] [address] [place] [address]Dr. Erasmo Smith Neutrophils/100 WBC (Bld) 87.6 % Critically high 43.0-75.0 [facility] Comment on above: Performed By: #### C BC ####[facility] [address] [place] [id number]. Erasmo Luis Platelet mean volume (Bld) [Entitic vol] 10.0 fL Normal 9.5-13.5 [facility] Comment on above: Performed By: #### C BC ####[facility] [address] [place] [id number]. Erasmo Luis PLT 206 103/ul Normal 150-450 [facility] Comment on above: Performed By: #### C BC ####[facility] [address] [place] [address]Dr. Erasmo Smith RBC 3.91 106/ul Critically low 4.20-5.40 The [facility] Comment on above: Performed By: #### C BC ####[facility] [address] [place], [place] [address]Vb. Erasmo Smith WBC 16.5 103/ul Critically high 4.0-11.0 The [facility] Comment on above: Performed By: #### C BC ####[facility] [address] [place], [place] [address]Fl. Erasmo Smith ECHOCARDIO M/2D COMPLETEon 0 12-02-2022 ECHOCARDIO M/2D COMPLETE Patient: BREANN STARKS Exam Date: 12/02/2022 : 1945 Gender:F Ordering : KAYLEY HOLMAN . Admission #: [id number] Family : DR LUISANA FISHER . Order #: [id number] CLICK HERE TO VIEW EXAM ECHOCARDIOGRAM REPORT [...] Salazar M.D. on 12/02/2022 at 21:58 Normal [facility] MAGNESIUMon 12-02-2022 Magnesium [Mass/Vol] 2.0 mg/dL Normal 1.8-2.4 [facility] Comment on above: Performed By: #### B DICTIONARY EDITOR #### [facility] [address] [place] [address] Dr. Erasmo Smith PROF 14(COMP METB)on 023 Albumin [Mass/Vol] 2.7 g/dL Critically low 3.4-5.0 Th e [facility] Comment on above: Performed By: #### B DICTIONARY EDITOR #### [facility] [address] [address] [address] Erasmo Smith Albumin/Globulin [Mass ratio] 0.6 {ratio} Normal [facility] Comment on above: Performed By: #### B DICTIONARY EDITOR #### [facility] [address] [address] [address] Erasmo Smith ALP [Catalytic activity/Vol] 128 U/L Critically high 46-116 [facility] Comment on above: Performed By: #### B DICTIONARY EDITOR #### [facility] [address] [place] [address] Dr. Erasmo Smith ALT [Catalytic activity/Vol] 34 U/L Normal 14-59 [facility] Comment on above: Performed By: #### B DICTIONARY EDITOR #### [facility] [address] [place] [address] Dr. Erasmo Smith Anion gap [Moles/Vol] 10.6 mmol/L Normal Th [facility] Comment on above: Performed By: #### B DICTIONARY EDITOR #### [facility] [address] [place] [address] Dr. Erasmo Smith AST [Catalytic activity/Vol] 27 U/L Normal 15-37 [facility] Comment on above: Performed By: #### B DICTIONARY EDITOR #### [facility] [address] [place] [address] Dr. Erasmo Smith Bilirubin [Mass/Vol] 0.5 mg/dL Normal 0.2-1.0 [facility] Comment on above: Performed By: #### B DICTIONARY EDITOR #### [facility] [address] [place] [address] Dr. Erasmo Smith Calcium [Mass/Vol] 8.4 mg/dL Critically low 8.5-10.1 [facility] Comment on above: Performed By: #### B DICTIONARY EDITOR #### [facility] [address] [place] [address] Dr. Erasmo Smith Chloride [Moles/Vol] 104 mmol/L Normal 98-107 [facility] Comment on above: Performed By: #### B DICTIONARY EDITOR #### [facility] [address] [address] [address] rEasmo Smith CO2 [Moles/Vol] 26.2 mmol/L Normal 21.0-32.0 [facility] Comment on above: Performed By: #### B DICTIONARY EDITOR #### [facility] [address] [address] [address] Erasmo Smith Creatinine [Mass/Vol] 0.52 mg/dL Critically low 0.55-1.02 [facility] Comment on above: Performed By: #### B DICTIONARY EDITOR #### [facility] [address] [address] [address] Erasmo Smith EGFR-AF BENINESE >60 Normal >=60 [facility] Comment on above: Performed By: #### B DICTIONARY EDITOR #### [facility] [address] [place] [address] Dr. Earsmo Smith EGFR-NON AF BENINESE >60 Normal >=60 [facility] Comment on above: Performed By: #### B DICTIONARY EDITOR #### [facility] [address] [place] [address] Dr. Erasmo Smtih Globulin (S) [Mass/Vol] 4.3 g/dL Normal [facility] Comment on above: Performed By: #### B DICTIONARY EDITOR #### [facility] [address] [place] [address] Dr. Erasmo Smith Glucose [Mass/Vol] 135 mg/dL Critically high 74-106 T [facility] Comment on above: Performed By: #### B DICTIONARY EDITOR #### [facility] [address] [address] [address] Erasmo mSith Potassium [Moles/Vol] 3.8 mmol/L Normal 3.5-5.1 [facility] Comment on above: Performed By: #### B DICTIONARY EDITOR #### [facility] [address] [place] [address] Dr. Erasmo Smith Protein [Mass/Vol] 7.0 g/dL Normal 6.4-8.2 [facility] Comment on above: Performed By: #### B DICTIONARY EDITOR #### [facility] [address] [place] [address] Dr. Erasmo Smith Sodium [Moles/Vol] 137 mmol/L Normal 136-145 [facility] Comment on above: Performed By: #### B DICTIONARY EDITOR #### [facility] [address] [address] [address] Erasmo Smith Urea nitrogen [Mass/Vol] 16.0 mg/dL Normal 7.0-18.0 [facility] Comment on above: Performed By: #### B DICTIONARY EDITOR #### [facility] [address] [address] [address] Erasmo Smith Urea nitrogen/Creatinine [Mass ratio] 30.8 mg/mg Normal [facility] Comment on above: Performed By: #### B DICTIONARY EDITOR #### [facility] [address] [address] [address] Erasmo Smith PROTIMEon 12-02-2022 INR Coag (PPP) [Relative time] 4.39 {INR} Critically high [facility] Comment on above: Performed By: #### P T #### [facility] [address] [place] [address] Dr. Erasmo Smith INR GUIDELINES SEE BELOW Normal [facility] Comment on above: Result Comment: ABNER RED INR: 2.0 - 3.0 CONDITIONS NOT LISTED BELOW 2.5 - 3.5 FOR PROSTHETIC HEART VALVE REPLACEMENT 2.5 - 3.5 RECURRENT THROMBOSIS Performed By: #### P T #### [facility] [address] [place] [address] Dr. Erasmo Smith PT Coag (PPP) [Time] 42.8 s Critically high 9.0-11.6 [facility] Comment on above: Performed By: #### P T #### [facility] [address] [address] [address] Erasmo Smith UA RANDOM W/MICROSCOPICon BACTERIA NONE SEEN Normal NONE SEEN [facility] Comment on above: Performed By: #### U AMIC ####[facility] [address] [address]Dr. Erasmo Smith Bilirubin Ql (U) Negative Normal NEGATIVE The [facility] Comment on above: Performed By: #### U AMIC ####[facility] [address] [address]Dr. Erasmo Smith CAST NONE SEEN Normal NONE SEEN [facility] Comment on above: Performed By: #### U AMIC ####[facility] [address] [address]Dr. Erasmo Smith Clarity (U) CLEAR Normal CLEAR [facility] Comment on above: Performed By: #### U AMIC ####[facility] [address] [place], [place] [address]Dr. Erasmo Smith Color (U) YELLOW Normal YELLOW [facility] Comment on above: Performed By: #### U AMIC ####[facility] [address]ketafnjyb[address] [place], [place] [address]Dr. Erasmo Smith Crystals LM Nom (Urine sed) NONE SEEN Normal NONE SEEN [facility] Comment on above: Performed By: #### U AMIC ####[facility] [address]ausufktz[address] [place], [place] [address]Dr. Erasmo Smith Epithelial cells LM Ql (Urine sed) RARE Normal NONE SEEN /RARE [facility] Comment on above: Performed By: #### U AMIC ####[facility] Odfxjpdfjy[address] [place], [place] [address]Dr. Erasmo Smith Glucose Ql (U) Negative Normal NEGATIVE [facility] Comment on above: Performed By: #### U AMIC ####[facility] S[address]ojlongo[address] [place], [place] [address]Dr. Erasmo Smith Hemoglobin Ql (U) SMALL Abnormal NEGATIVE The [facility] Comment on above: Performed By: #### U AMIC ####[facility] [address]prbfxdg[address] [place], [place] [address]Dr. Erasmo Smith Ketones Ql (U) 15 mg/dl Abnormal NEGATIVE [facility] Comment on above: Performed By: #### U AMIC ####[facility] [address]stqkcha[address] [place], [place] [address]Dr. Erasmo Smith LEUKOCYTES Negative Normal NEGATIVE [facility] Comment on above: Performed By: #### U AMIC ####[facility] [address] [place] [address]. Erasmo Smith MUCOUS NONE SEEN Normal NONE SEEN [facility] Comment on above: Performed By: #### U AMIC ####[facility] [address] [address]Dr. Erasmo Smith Nitrite Ql (U) Negative Normal NEGATIVE [facility] Comment on above: Performed By: #### U AMIC ####[facility] [address] [address]Dr. Erasmo Smith pH (U) 6.0 [pH] Normal 5-9 [facility] Comment on above: Performed By: #### U AMIC ####[facility] [address] [place] [address]Dr. Erasmo Smith RBC 0-2 Normal 0-2 [facility] Comment on above: Performed By: #### U AMIC ####[facility] [address] [place], [place] [address]Dr. Erasmo Smith SPEC GRAVITY 1.025 Normal 1.005-<=1.02 5 [facility] Comment on above: Performed By: #### U AMIC ####[facility] [address] [place] [address]Dr. Erasmo Smith UA PROTEIN TRACE Normal NEGATIVE/ TRACE [facility] Comment on above: Performed By: #### U AMIC ####[facility] [address] [place] [address]Dr. Erasmo Smith Urobilinogen Qn (U) 4 {Shraddha'U}/dL Abnormal 0.2 - 1.0 [facility] Comment on above: Performed By: #### U AMIC ####[facility] [address] [place] [address]Dr. Erasmo Smith WBC 0-2 Abnormal NONE SEEN [facility] Comment on above: Performed By: #### U AMIC ####[facility] [address] [place] [address]Dr. Erasmo Smith CARDIAC ROSA ELENA 3-6on 3 CK [Catalytic activity/Vol] 47 U/L Normal 26-192 [facility] Comment on above: Performed By: #### B DICTIONARY EDITOR #### [facility] [address] [place] [address] Dr. Erasmo Smith CK [Catalytic activity/Vol] 53 U/L Normal 26-192 [facility] Comment on above: Performed By: #### C MREP #### [facility] [address] [place] [address] Dr. Erasmo Smith CK.MB [Mass/Vol] 1.00 ng/mL Normal <=3.60 [facility] Comment on above: Performed By: #### B DICTIONARY EDITOR #### [facility] [address] [place] [address] Dr. Erasmo Smith CK.MB [Mass/Vol] 0.90 ng/mL Normal <=3.60 [facility] Comment on above: Performed By: #### C MREP #### [facility] [address] [place] [address] Dr. Erasmo Smith HSTROP 154.3 pg/mL Critically high 4.0-51.3 [facility] Comment on above: Result Comment: CUT- OFF POINTS HAVE BEEN ESTABLISHED BASED ON THE FOURTH UNIVERSAL DEFINITIONS OF MYOCARDIAL INFARCTION. THE UPPER REFERENCE LIMIT (URL) OF TROPONIN, DEFINED THE 99TH PERCENTILE OF cTnI DISTRIBUTION IN A REFERENCE POPULATION, HAS BEEN CONFIRMED THE DECISION THRESHOLD FOR LA DIAGNOSIS. Performed By: #### B DICTIONARY EDITOR #### [facility] [address] [place] [address] Dr. Erasmo Smith HSTROP 116.7 pg/mL Critically high 4.0-51.3 [facility] Comment on above: Result Comment: CUT- OFF POINTS HAVE BEEN ESTABLISHED BASED ON THE FOURTH UNIVERSAL DEFINITIONS OF MYOCARDIAL INFARCTION. THE UPPER REFERENCE LIMIT (URL) OF TROPONIN, DEFINED THE 99TH PERCENTILE OF cTnI DISTRIBUTION IN A REFERENCE POPULATION, HAS BEEN CONFIRMED THE DECISION THRESHOLD FOR LA DIAGNOSIS. Performed By: #### C MREP #### [facility] [address] [place] [address] Dr. Erasmo Smith CBC W MANUAL DIFFon 12-02-19 23 ATYPICAL LYMPH # Normal [facility] Comment on above: Performed By: #### C BCMAN #### [facility] [address] [place] [address] Dr. Erasmo Smith ATYPICAL LYMPH % Normal [facility] Comment on above: Performed By: #### C BCMAN #### [facility] [address] [place] [address] Dr. Erasmo Smith BAND # 0.6 103/ul Critically high 0.0-0.3 [facility] Comment on above: Performed By: #### C BCMAN #### [facility] [address] [place] [address] Dr. Erasmo Smith BAND % 3 % Normal 0-5 [facility] Comment on above: Performed By: #### C BCMAN #### [facility] [address] [place] [address] Dr. Erasmo Smith BASOM # 0.00 103/ul Normal 0.00-0.10 [facility] Comment on above: Performed By: #### C BCMAN #### [facility] [address] [place] [address] Dr. Erasmo Smith BASOM % 0.0 % Critically low 0.2-2.0 [facility] Comment on above: Performed By: #### C BCBLAISE #### [facility] [address] [place] [address] Dr. Erasmo Smith BLAST # Normal [facility] Comment on above: Performed By: #### C BCBLAISE #### [facility] [address] [place] [address] Dr. Erasmo Smith BLAST % Normal [facility] Comment on above: Performed By: #### C BCMAN #### [facility] [address] [place] [address] Dr. Erasmo Smith CORRECTED WBC Normal 4.0-11.0 [facility] Comment on above: Performed By: #### C BCMAN #### [facility] [address] [place] [address] Dr. Erasmo Smith EOS # 0.19 103/ul Normal 0.00-0.70 [facility] Comment on above: Performed By: #### C BCMAN #### [facility] [address] [place] [address] Dr. Erasmo Smith EOS% 1.0 % Normal 0.9-7.0 [facility] Comment on above: Performed By: #### C ANGELA #### [facility] [address] [address] [address] Erasmo Smith HCT 32.7 % Critically low 36.0-48.0 [facility] Comment on above: Performed By: #### C ANGELA #### [facility] [address] [address] [address] Erasmo Smith HGB 10.5 g/dl Critically low 12.0-16.0 [facility] Comment on above: Performed By: #### C ANGELA #### [facility] [address] [address] [address] Erasmo Smith LYMPHM # 0.76 103/ul Critically low 1.20-3.80 [facility] Comment on above: Performed By: #### C ANGELA #### [facility] [address] [address] [address] Erasmo Smith LYMPHM% 4.0 % Critically low 20.5-60.0 [facility] Comment on above: Performed By: #### C ANGELA #### [facility] [address] [address] [address] Erasmo Smith MCH 25.9 pg Critically low 26.7-34.0 [facility] Comment on above: Performed By: #### C ANGELA #### [facility] [address] [address] [address] Erasmo Smith MCHC 32.1 g/dl Normal 29.9-35.2 [facility] Comment on above: Performed By: #### C ANGELA #### [facility] [address] [address] [address] Erasmo Smith MCV 80.5 fL Critically low 81.0-99.0 [facility] Comment on above: Performed By: #### C ANGELA #### [facility] [address] [address] [address] Erasmo Smith METAMYELOCYTE # Normal [facility] Comment on above: Performed By: #### C ANGELA #### [facility] [address] [address] [address] Erasmo Smith METAMYELOCYTE % Normal [facility] Comment on above: Performed By: #### C ANGELA #### [facility] [address] [address] [address] Erasmo Smith MONOM# 1.14 103/ul Critically high 0.30-0.80 [facility] Comment on above: Performed By: #### C ANGELA #### [facility] [address] [address] [address] Erasmo Smith MONOM% 6.0 % Normal 1.7-12.0 [facility] Comment on above: Performed By: #### C ANGELA #### [facility] [address] [place] [address] Dr. Erasmo Smith MPV 9.4 fL Critically low 9.5-13.5 [facility] Comment on above: Performed By: #### C ANGELA #### [facility] [address] [address] [address] Erasmo Smith MYELOCYTE # Normal [facility] Comment on above: Performed By: #### C ANGELA #### [facility] [address] [place] [address] Dr. Erasmo Smith MYELOCYTE % Normal [facility] Comment on above: Performed By: #### C ANGELA #### [facility] [address] [place] [address] Dr. Erasmo Smith NRBC Normal [facility] Comment on above: Performed By: #### C ANGELA #### [facility] [address] [address] [address] Erasmo Smith PLT 195 103/ul Normal 150-450 [facility] Comment on above: Performed By: #### C ANGELA #### [facility] [address] [address] [address] Erasmo Smith RBC 4.06 106/ul Critically low 4.20-5.40 [facility] Comment on above: Performed By: #### C ANGELA #### [facility] [address] [place], [place] [address] Dr. Erasmo Smith RDW 17.7 % Critically high 11.0-15.0 [facility] Comment on above: Performed By: #### C BCMAN #### [facility] [address] [place], [place] [address] Dr. Erasmo Smith SEG # 16.34 103/ul Critically high 1.40-6.50 [facility] Comment on above: Performed By: #### C BCMAN #### [facility] [address] [place], [place] [address] Dr. Erasmo Smith SEG % 86.0 % Critically high 43.0-75.0 [facility] Comment on above: Performed By: #### C BCMAN #### [facility] [address] [place], [place] [address] Dr. Erasmo Smith WBC 19.0 103/ul Critically high 4.0-11.0 [facility] Comment on above: Performed By: #### C BCMAN #### [facility] [address] [place], [place] [address] HEAD WO CONon [...] SALOME MCCORMICK Date: 2022 14:50 Normal [facility] CULTURE BLOODon 2022 Microscopic examination of blood, culture Culture Observations: Aerobic and Anaerobic bottle positive. BCID: E. Coli Culture Observations: Refer to for VIOLET. Isolate 1 Escherichia coli Growth of Normal [facility] Comment on above: Performed By: #### B LDCX2 ####[facility] [address] [place] [id number]. Erasmo Smith [facility]11 SARS-CoV-2 (COVID-19) RNA EMILY+probe Ql (Unsp spec) Not detected Normal NOT DETECTED [facility] Comment on above: Result Comment: When [...] for this test is supported by the [employer] of [employer] and Human Service's declaration that [...] used). Performed By: #### C MREP #### [facility] [id number] Erasmo Smith LACTATE/LACTIC ACIDon 2022 Lactate [Moles/Vol] 1.2 mmol/L Normal 0.4-2.0 [facility] Comment on above: Performed By: #### L ACT ####[facility] [address] [place] [address]Dr. Erasmo Smith PH VENOUS BLOODon 2022 PCO2 VENOUS 37.8 mmHg Critically low 40.0-52.0 [facility] Comment on above: Performed By: #### P HVEN ####[facility] [address] [place] [address]Dr. Erasmo Smith pH VENOUS 7.417 Normal 7.330-7.430 [facility] Comment on above: Performed By: #### P HVEN ####[facility] [address] [place] [address]Dr. Erasmo Smith PROF 14(COMP METB)on 023 Albumin [Mass/Vol] 3.1 g/dL Critically low 3.4-5.0 [facility] Comment on above: Performed By: #### H ALEXSANDER, CMP ####[facility] [address] [place] [address]Dr. Erasmo Smith Albumin/Globulin [Mass ratio] 0.8 {ratio} Normal [facility] Comment on above: Performed By: #### H ALEXSANDER, CMP ####[facility] [address] [place] [address]Dr. Erasmo Smith ALP [Catalytic activity/Vol] 194 U/L Critically high 46-116 [facility] Comment on above: Performed By: #### H ALEXSANDER, CMP ####[facility] [address] [place], [place] [address]Dr. Erasmo Smith ALT [Catalytic activity/Vol] 37 U/L Normal 14-59 [facility] Comment on above: Performed By: #### H ALEXSANDER, CMP ####[facility] [address] [place], [place] [address]Dr. Erasmo Smith Anion gap [Moles/Vol] 14.6 mmol/L Normal [facility] Comment on above: Performed By: #### H ALEXSANDER, CMP ####[facility] [address] [place], [place] [address]Dr. Erasmo Smith AST [Catalytic activity/Vol] 32 U/L Normal 15-37 [facility] Comment on above: Performed By: #### H ALEXSANDER, CMP ####[facility] [address] [place] [address]Dr. Erasmo Smith Bilirubin [Mass/Vol] 1.0 mg/dL Normal 0.2-1.0 [facility] Comment on above: Performed By: #### H ALEXSANDER, CMP ####[facility] [address] [place], [place] [address]Dr. Erasmo Smith Calcium [Mass/Vol] 8.9 mg/dL Normal 8.5-10.1 [facility] Comment on above: Performed By: #### H ALEXSANDER, CMP ####[facility] [address] [place] [address]Dr. Erasmo Smith Chloride [Moles/Vol] 103 mmol/L Normal 98-107 [facility] Comment on above: Performed By: #### H ALEXSANDER, CMP ####[facility] [address] [place] [address]Dr. Heavenean Smith CO2 [Moles/Vol] 23.6 mmol/L Normal 21.0-32.0 [facility] Comment on above: Performed By: #### H ALEXSANDER, CMP ####[facility] [address] [place], [place] [address]Dr. Erasmo Smith Creatinine [Mass/Vol] 0.69 mg/dL Normal 0.55-1.02 [facility] Comment on above: Performed By: #### H ALEXSANDER, CMP ####[facility] [address] [place], [place] [address]Dr. Heavenean Luis EGFR-AF BENINESE >60 Normal >=60 [facility] Comment on above: Performed By: #### H ALEXSANDER, CMP ####[facility] [address] [place], [place] [address]Dr. Erasmo Smith EGFR-NON AF BENINESE >60 Normal >=60 [facility] Comment on above: Performed By: #### H ALEXSANDER, CMP ####[facility] [address] [place] [address]Dr. Erasmo Smith Globulin (S) [Mass/Vol] 4.1 g/dL Normal [facility] Comment on above: Performed By: #### H ALEXSANDER, CMP ####[facility] [address] [place] [address]Dr. Erasmo Smith Glucose [Mass/Vol] 121 mg/dL Critically high 74-106 [facility] Comment on above: Performed By: #### H ALEXSANDER, CMP ####[facility] [address] [place] [address]Dr. Erasmo Smith Potassium [Moles/Vol] 3.2 mmol/L Critically low 3.5-5.1 [facility] Comment on above: Performed By: #### Kymberly BELTRE, CMP ####[facility] [address] [place] [address]Dr. Erasmo Smith Protein [Mass/Vol] 7.2 g/dL Normal 6.4-8.2 [facility] Comment on above: Performed By: #### Kymberly BELTRE, CMP ####[facility] [address] [place] [address]Dr. Erasmo Smith Sodium [Moles/Vol] 138 mmol/L Normal 136-145 [facility] Comment on above: Performed By: #### Kymberly BELTRE, CMP ####[facility] [address] [place] [address]Dr. Erasmo Smith Urea nitrogen [Mass/Vol] 17.0 mg/dL Normal 7.0-18.0 [facility] Comment on above: Performed By: #### Kymberly BELTRE, CMP ####[facility] [address] [place] [address]Dr. Erasmo Smith Urea nitrogen/Creatinine [Mass ratio] 24.6 mg/mg Normal [facility] Comment on above: Performed By: #### Kymberly BELTRE, CMP ####[facility] [address] [place] [address]DrMeena Smith PROTIMEon 2022 INR Coag (PPP) [Relative time] 3.58 {INR} Normal [facility] Comment on above: Performed By: #### P T, PTT #### [facility] [address] [address] [address] Erasmo Smith INR GUIDELINES SEE BELOW Normal [facility] Comment on above: Result Comment: ABNER RED INR: 2.0 - 3.0 CONDITIONS NOT LISTED BELOW 2.5 - 3.5 FOR PROSTHETIC HEART VALVE REPLACEMENT 2.5 - 3.5 RECURRENT THROMBOSIS Performed By: #### P T, PTT #### [facility] [address] [address] [address] Erasmo Smith PT Coag (PPP) [Time] 35.3 s Critically high 9.0-11.6 [facility] Comment on above: Performed By: #### P T, PTT #### [facility] [address] [address] [address] Erasmo Smith PTTon 2022 aPTT Coag (Bld) [Time] 40.3 s Critically high 22.3-36. 2 [facility] Comment on above: Performed By: #### P T, PTT #### [facility] [address] [place] [address] Dr. Erasmo Smith TROPONIN, HIGH SENSITIVITYon 2022 HSTROP 218.0 pg/mL Critically high 4.0-51.3 [facility] Comment on above: Result Comment: CUT- OFF POINTS HAVE BEEN ESTABLISHED BASED ON THE FOURTH UNIVERSAL DEFINITIONS OF MYOCARDIAL INFARCTION. THE UPPER REFERENCE LIMIT (URL) OF TROPONIN, DEFINED THE 99TH PERCENTILE OF cTnI DISTRIBUTION IN A REFERENCE POPULATION, HAS BEEN CONFIRMED THE DECISION THRESHOLD FOR LA DIAGNOSIS. Performed By: #### B DICTIONARY EDITOR #### [facility] [address] [place] [address] Dr. Erasmo Smith HSTROP 194.7 pg/mL Critically high 4.0-51.3 [facility] Comment on above: Result Comment: CUT- OFF POINTS HAVE BEEN ESTABLISHED BASED ON THE FOURTH UNIVERSAL DEFINITIONS OF MYOCARDIAL INFARCTION. THE UPPER REFERENCE LIMIT (URL) OF TROPONIN, DEFINED THE 99TH PERCENTILE OF cTnI DISTRIBUTION IN A REFERENCE POPULATION, HAS BEEN CONFIRMED THE DECISION THRESHOLD FOR LA DIAGNOSIS. Performed By: #### C MREP #### [facility] [address] [place] [address] Dr. Erasmo Smith XR CHEST 1 Von [...] by: HONG ALSTON Date: 2022 14:18 Normal [facility] MG MAMM SCREEN 3D TOÑITO CADon 11-26-2022 MG MAMM SCREEN 3D TOÑITO CAD Patient: BREANN STARKS Exam Date: 11/26/2022 : 1945 Gender:F Ordering : DR LUISANA FISHER . Admission #: [id number] Family : Order #: [id number] CLICK HERE TO VIEW EXAM RADIOLOGY REPORT [...] Treatments None Family Cancers None LOCATION: [facility] BREAST COMPOSITION: Heterogeneously dense,which may obscure [...] Delgado M.D. on 11/26/2022 at 14:13 Normal [facility] PROF 14(COMP METB)on 022 Albumin [Mass/Vol] 3.8 g/dL Normal 3.4-5.0 [facility] Comment on above: Performed By: #### C MREP #### [facility] [address] [place], [place] [address] Dr. Erasmo Smith Albumin/Globulin [Mass ratio] 0.8 {ratio} Normal [facility] Comment on above: Performed By: #### C MREP #### [facility] [address] [address] [address] Erasmo Smith ALP [Catalytic activity/Vol] 102 U/L Normal 46-116 [facility] Comment on above: Performed By: #### C MREP #### [facility] [address] [place] [address] Dr. Erasmo Smith ALT [Catalytic activity/Vol] 47 U/L Normal 14-59 [facility] Comment on above: Performed By: #### C MREP #### [facility] [address] [place] [address] Dr. Erasmo Smith Anion gap [Moles/Vol] 12.5 mmol/L Normal [facility] Comment on above: Performed By: #### C MREP #### [facility] [address] [place] [address] Dr. Erasmo Smith AST [Catalytic activity/Vol] 36 U/L Normal 15-37 [facility] Comment on above: Performed By: #### C MREP #### [facility] [address] [place] [address] Dr. Erasmo Smith Bilirubin [Mass/Vol] 0.3 mg/dL Normal 0.2-1.0 [facility] Comment on above: Performed By: #### C MREP #### [facility] [address] [place] [address] Dr. Erasmo Smith Calcium [Mass/Vol] 8.9 mg/dL Normal 8.5-10.1 [facility] Comment on above: Performed By: #### C MREP #### [facility] [address] [place] [address] Dr. Erasmo Smith Chloride [Moles/Vol] 106 mmol/L Normal 98-107 [facility] Comment on above: Performed By: #### C MREP #### [facility] [address] [place] [address] Dr. Erasmo Smith CO2 [Moles/Vol] 26.9 mmol/L Normal 21.0-32.0 [facility] Comment on above: Performed By: #### C MREP #### [facility] [address] [place] [address] Dr. Erasmo Simth Creatinine [Mass/Vol] 0.79 mg/dL Normal 0.55-1.02 [facility] Comment on above: Performed By: #### C MREP #### [facility] [address] [address] [address] Erasmo Smith EGFR-AF BENINESE >60 Normal >=60 [facility] Comment on above: Performed By: #### C MREP #### [facility] [address] [address] [address] Erasmo Smith EGFR-NON AF BENINESE >60 Normal >=60 [facility] Comment on above: Performed By: #### C MREP #### [facility] [address] [address] [address] Erasmo Smith Globulin (S) [Mass/Vol] 4.6 g/dL Normal [facility] Comment on above: Performed By: #### C MREP #### [facility] [address] [place] [address] Dr. Erasmo Smith Glucose [Mass/Vol] 102 mg/dL Normal 74-106 [facility] Comment on above: Performed By: #### C MREP #### [facility] [address] [address] [address] Erasmo Smith Potassium [Moles/Vol] 4.4 mmol/L Normal 3.5-5.1 [facility] Comment on above: Performed By: #### C MREP #### [facility] [address] [address] [address] Erasmo Smith Protein [Mass/Vol] 8.4 g/dL Critically high 6.4-8.2 [facility] Comment on above: Performed By: #### C MREP #### [facility] [address] [address] [address] Erasmo Smith Sodium [Moles/Vol] 141 mmol/L Normal 136-145 [facility] Comment on above: Performed By: #### C MREP #### [facility] [address] [address] [address] Erasmo Smith Urea nitrogen [Mass/Vol] 28.0 mg/dL Critically high 7.0-18.0 [facility] Comment on above: Performed By: #### C MREP #### [facility] [address] [place] [address] Dr. Erasmo Smith Urea nitrogen/Creatinine [Mass ratio] 35.4 mg/mg Normal [facility] Comment on above: Performed By: #### C MREP #### [facility] [address] [place] [address] Dr. Erasmo Smith CBC AUTO DIFFon 07-12-2022 BASO # 0.1 103/ul Normal 0.0-0.1 [facility] Comment on above: Performed By: #### B DICTIONARY EDITOR #### [facility] [address] [place] [address] Dr. Erasmo Smith Basophils/100 WBC (Bld) 0.5 % Normal 0.2-2.0 [facility] Comment on above: Performed By: #### B DICTIONARY EDITOR #### [facility] [address] [place] [address] Dr. Erasmo Smith EO # 0.2 103/ul Normal 0.0-0.7 [facility] Comment on above: Performed By: #### B DICTIONARY EDITOR #### [facility] [address] [place] [address] Dr. Erasmo Smith Eosinophils/100 WBC (Bld) 2.5 % Normal 0.9-7.0 [facility] Comment on above: Performed By: #### B DICTIONARY EDITOR #### [facility] [address] [place] [address] Dr. Erasmo Smith Erythrocyte distribution width (RBC) [Ratio] 17.2 % Critically high 11.0-15.0 [facility] Comment on above: Performed By: #### B DICTIONARY EDITOR #### [facility] [address] [place] [address] Dr. Erasmo Smith Hematocrit (Bld) [Volume fraction] 35.0 % Critically low 36.0-48.0 [facility] Comment on above: Performed By: #### B DICTIONARY EDITOR #### [facility] [address] [place] [address] Dr. Erasmo Smith Hemoglobin (Bld) [Mass/Vol] 11.3 g/dL Critically low 12.0-16.0 [facility] Comment on above: Performed By: #### B DICTIONARY EDITOR #### [facility] [address] [place] [address] Dr. Erasmo Smith IG # 0.02 10e3/ul Normal 0.00-0.03 [facility] Comment on above: Performed By: #### B DICTIONARY EDITOR #### [facility] [address] [place] [address] Dr. Erasmo Smith IG % 0.2 % Normal 0.0-0.5 [facility] Comment on above: Performed By: #### B DICTIONARY EDITOR #### [facility] [address] [place] [address] Dr. Erasmo Smith LYMPH # 2.3 103/ul Normal 1.2-3.8 [facility] Comment on above: Performed By: #### B DICTIONARY EDITOR #### [facility] [address] [place] [address] Dr. Erasmo Smith Lymphocytes/100 WBC (Bld) 25.4 % Normal 20.5-60.0 [facility] Comment on above: Performed By: #### B DICTIONARY EDITOR #### [facility] [address] [place] [address] Dr. Erasmo Smith MANUAL DIFF REQ NO Normal [facility] Comment on above: Performed By: #### B DICTIONARY EDITOR #### [facility] [address] [place] [address] Dr. Erasmo Smith MCH (RBC) [Entitic mass] 25.5 pg Critically low 26.7-34.0 [facility] Comment on above: Performed By: #### B DICTIONARY EDITOR #### [facility] [address] [place] [address] Dr. Erasmo Smith MCHC (RBC) [Mass/Vol] 32.3 g/dL Normal 29.9-35.2 [facility] Comment on above: Performed By: #### B DICTIONARY EDITOR #### [facility] [address] [place] [address] Dr. Erasmo Smith MCV (RBC) [Entitic vol] 78.8 fL Critically low 81.0-99.0 [facility] Comment on above: Performed By: #### B DICTIONARY EDITOR #### [facility] [address] [place] [address] Dr. Erasmo Smith MONO # 0.7 103/ul Normal 0.3-0.8 [facility] Comment on above: Performed By: #### B DICTIONARY EDITOR #### [facility] [address] [place] [address] Dr. Erasmo Smith Monocytes/100 WBC (Bld) 7.5 % Normal 1.7-12.0 [facility] Comment on above: Performed By: #### B DICTIONARY EDITOR #### [facility] [address] [place] [address] Dr. Erasmo Smith NEUT # 5.9 103/ul Normal 1.4-6.5 [facility] Comment on above: Performed By: #### B DICTIONARY EDITOR #### [facility] [address] [place] [address] Dr. Erasmo Smith Neutrophils/100 WBC (Bld) 63.9 % Normal 43.0-75.0 [facility] Comment on above: Performed By: #### B DICTIONARY EDITOR #### [facility] [address] [place] [address] Dr. Erasmo Smith Platelet mean volume (Bld) [Entitic vol] 9.0 fL Critically low 9.5-13.5 [facility] Comment on above: Performed By: #### B DICTIONARY EDITOR #### [facility] [address] [place] [address] Dr. Erasmo Smith PLT 305 103/ul Normal 150-450 [facility] Comment on above: Performed By: #### B DICTIONARY EDITOR #### [facility] [address] [place] [address] Dr. Erasmo Smith RBC 4.44 106/ul Normal 4.20-5.40 [facility] Comment on above: Performed By: #### B DICTIONARY EDITOR #### [facility] [address] [place] [address] Dr. Erasmo Smith WBC 9.2 103/ul Normal 4.0-11.0 [facility] Comment on above: Performed By: #### B DICTIONARY EDITOR #### [facility] [address] [place], [place] [address] CHEST WO CONon [...] by: PAULA DELGADO Date: 2022-05-27 15:27 Normal [facility] HEMOGLOBINon 04-20-2022 Hemoglobin (Bld) [Mass/Vol] 10.6 g/dL Critically low 12.0-16.0 [facility] Comment on above: Performed By: #### H GB ####[facility] [address] [place] [id number]. Erasmo Smith CULTURE SPUTUMon 04-02-2022 CULTURE SPUTUM Isolate 1 Pseudomonas aeruginosa Light growth of ORGANISM 1 Pseudomonas aeruginosa ANTIBIOTIC M.I.C RX STATUS Piperacillin/Tazobac saez 8 S F Ceftazidime 2 S F Imipenem 1 S F Amikacin <=2 S F Gentamicin <=1 S F Tobramycin <=1 S F Ciprofloxacin <=0.25 S F Levofloxacin 0.25 S F Normal [facility] Comment on above: Performed By: #### S PUTCX ####[facility] [address] [place] [address]Dr. Erasmo Smith CYTOLOGYon 03-30-2022 SENT TO REF LAB 03/31/22 Normal [facility] Comment on above: Performed By: #### C YTO #### [facility] [address] [place] [address] Dr. Erasmo Smith SPUTUM GRAM STAINon 03-30-20 COMMENTS Normal [facility] Comment on above: Performed By: #### B DICTIONARY EDITOR #### [facility] [address] [address] [address] Erasmo Smith DIPHTHEROIDS [facility] Comment on above: Performed By: #### B DICTIONARY EDITOR #### [facility] [address] [address] [address] Erasmo Smith EPITHELIALS <25 [facility] Comment on above: Performed By: #### B DICTIONARY EDITOR #### [facility] [address] [place] [address] Dr. Erasmo Smith FUNGAL ELEMENTS Normal [facility] Comment on above: Performed By: #### B DICTIONARY EDITOR #### [facility] [address] [address] [address] Erasmo Smith GRAM NEG BACILLI FEW [facility] Comment on above: Performed By: #### B DICTIONARY EDITOR #### [facility] [address] [place] [address] Dr. Erasmo CINTRON NEG DIPPLOCOCCI [facility] Comment on above: Performed By: #### B DICTIONARY EDITOR #### [facility] [address] [place] [address] Dr. Erasmo Smith GRAM POS BACILLI [facility] Comment on above: Performed By: #### B DICTIONARY EDITOR #### [facility] [address] [address] [address] Erasmo Smith GRAM POSITIVE COCCI MANY Normal [facility] Comment on above: Performed By: #### B DICTIONARY EDITOR #### [facility] [address] [place] [address] Dr. Erasmo Smith WBC (Bld) [#/Vol] 10*3/uL Normal [facility] Comment on above: Performed By: #### B DICTIONARY EDITOR #### [facility] [address] [address] [address] Erasmo Smith SPUTUM CULTUREon 03-01-2022 Epithelial cells LM Ql (Urine sed) Few Normal [facility] Comment on above: Performed By: #### C XSPTUM ####[facility] [address] [place] [address]Dr. Erasmo Smith Gram Stain Evaluation Comment Normal [facility] Comment on above: Result Comment: This specimen is of good quality and is acceptable for routine bacterial culture. Performed By: #### C XSPTUM ####[facility] [address] [place] [address]DrMeena Smith Lower Respiratory Culture Final report Normal [facility] Comment on above: Performed By: #### C XSPTUM ####[facility] [address] [place] [address]DrMeena Smith Result 1 Comment Normal [facility] Comment on above: Result Comment: Few gram positive cocci Performed By: #### C XSPTUM ####[facility] [address] [place], [place] [address]Dr. Erasmo Smith Result Comment: Rout ine respiratory adria Result 2 Normal [facility] Comment on above: Performed By: #### C XSPTUM ####[facility] [address] [place] [address]Dr. Erasmo Smith Result 3 Normal [facility] Comment on above: Performed By: #### C XSPTUM ####[facility] [address] [place] [address]Dr. Erasmo Smith Result 4 Normal [facility] Comment on above: Performed By: #### C XSPTUM ####[facility] [address] [place] [address]DrMeena Smith White Blood Cells Few Normal [facility] Comment on above: Performed By: #### C XSPTUM ####[facility] [address] [place], [place] [address]DrMeena Smith BNPon 02-24-2022 Natriuretic peptide B (Bld) [Mass/Vol] 319.0 pg/mL Normal <=900.0 [facility] Comment on above: Performed By: #### B DICTIONARY EDITOR #### [facility] [address] [place] [address] Dr. Erasmo Smith CBC AUTO DIFFon 02-24-2022 BASO # 0.1 103/ul Normal 0.0-0.1 [facility] Comment on above: Performed By: #### C MREP #### [facility] [address] [place] [address] Dr. Erasmo Smith Basophils/100 WBC (Bld) 0.5 % Normal 0.2-2.0 [facility] Comment on above: Performed By: #### C MREP #### [facility] [address] [place] [address] Dr. Erasmo Smith EO # 0.3 103/ul Normal 0.0-0.7 [facility] Comment on above: Performed By: #### C MREP #### [facility] [address] [place] [address] Dr. Erasmo Smith Eosinophils/100 WBC (Bld) 3.1 % Normal 0.9-7.0 [facility] Comment on above: Performed By: #### C MREP #### [facility] [address] [place] [address] Dr. Erasmo Smith Erythrocyte distribution width (RBC) [Ratio] 15.1 % Critically high 11.0-15.0 [facility] Comment on above: Performed By: #### C MREP #### [facility] [address] [place] [address] Dr. Erasmo Smith Hematocrit (Bld) [Volume fraction] 33.9 % Critically low 36.0-48.0 [facility] Comment on above: Performed By: #### C MREP #### [facility] [address] [place] [address] Dr. Erasmo Smith Hemoglobin (Bld) [Mass/Vol] 10.7 g/dL Critically low 12.0-16.0 [facility] Comment on above: Performed By: #### C MREP #### [facility] [address] [place] [address] Dr. Erasmo Smith IG # 0.03 10e3/ul Normal 0.00-0.03 [facility] Comment on above: Performed By: #### C MREP #### [facility] [address] [place] [address] Dr. Erasmo Smith IG % 0.3 % Normal 0.0-0.5 [facility] Comment on above: Performed By: #### C MREP #### [facility] [address] [place] [address] Dr. Erasmo Smith LYMPH # 2.8 103/ul Normal 1.2-3.8 [facility] Comment on above: Performed By: #### C MREP #### [facility] [address] [place] [address] Dr. Erasmo Smith Lymphocytes/100 WBC (Bld) 30.6 % Normal 20.5-60.0 [facility] Comment on above: Performed By: #### C MREP #### [facility] [address] [place] [address] Dr. Erasmo Smith MANUAL DIFF REQ NO Normal [facility] Comment on above: Performed By: #### C MREP #### [facility] [address] [place] [address] Dr. Erasmo Smith MCH (RBC) [Entitic mass] 26.9 pg Normal 26.7-34.0 [facility] Comment on above: Performed By: #### C MREP #### [facility] [address] [place] [address] Dr. Erasmo Smith MCHC (RBC) [Mass/Vol] 31.6 g/dL Normal 29.9-35.2 [facility] Comment on above: Performed By: #### C MREP #### [facility] [address] [place] [address] Dr. Erasmo Smith MCV (RBC) [Entitic vol] 85.2 fL Normal 81.0-99.0 [facility] Comment on above: Performed By: #### C MREP #### [facility] [address] [place] [address] Dr. Erasmo Smith MONO # 0.7 103/ul Normal 0.3-0.8 [facility] Comment on above: Performed By: #### C MREP #### [facility] [address] [place] [address] Dr. Erasmo Smith Monocytes/100 WBC (Bld) 7.9 % Normal 1.7-12.0 [facility] Comment on above: Performed By: #### C MREP #### [facility] [address] [place] [address] Dr. Erasmo Smith NEUT # 5.3 103/ul Normal 1.4-6.5 [facility] Comment on above: Performed By: #### C MREP #### [facility] [address] [place] [address] Dr. Erasmo Smith Neutrophils/100 WBC (Bld) 57.6 % Normal 43.0-75.0 [facility] Comment on above: Performed By: #### C MREP #### [facility] [address] [place] [address] Dr. Erasmo Smith Platelet mean volume (Bld) [Entitic vol] 9.0 fL Critically low 9.5-13.5 [facility] Comment on above: Performed By: #### C MREP #### [facility] [address] [place] [address] Dr. Erasmo Smith PLT 249 103/ul Normal 150-450 [facility] Comment on above: Performed By: #### C MREP #### [facility] [address] [place] [address] Dr. Erasmo Smith RBC 3.98 106/ul Critically low 4.20-5.40 [facility] Comment on above: Performed By: #### C MREP #### [facility] [address] [place] [address] Dr. Erasmo Smith WBC 9.1 103/ul Normal 4.0-11.0 [facility] Comment on above: Performed By: #### C MREP #### [facility] [address] [place] [address] Dr. Erasmo Smith CTA CHEST WO W MADDIon 02-24- 022 CTA CHEST WO W CON EXAMINATION: [...] by: PAULA DELGADO Date: 2022-02-24 18:24 Normal [facility] D-DIMERon 02-24-2022 D-DIMER 1.36 mg/L FEU Critically high <=0.59 [facility] Comment on above: Performed By: #### D DIM #### [facility] [address] [place] [address] Dr. Erasmo Smith D-DIMER COMMENTS SEE BELOW Normal [facility] Comment on above: Result Comment: Incr eases [...] hospitalization. Performed By: #### D DIM #### [facility] [address] [address] [address] Erasmo Smith PROF 14(COMP METB)on 022 Albumin [Mass/Vol] 3.6 g/dL Normal 3.4-5.0 [facility] Comment on above: Performed By: #### C MREP #### [facility] [address] [place] [address] Dr. Erasmo Smith Albumin/Globulin [Mass ratio] 0.8 {ratio} Normal [facility] Comment on above: Performed By: #### C MREP #### [facility] [address] [place] [address] Dr. Erasmo Smith ALP [Catalytic activity/Vol] 95 U/L Normal 46-116 [facility] Comment on above: Performed By: #### C MREP #### [facility] [address] [place] [address] Dr. Erasmo Smith ALT [Catalytic activity/Vol] 45 U/L Normal 14-59 [facility] Comment on above: Performed By: #### C MREP #### [facility] [address] [place] [address] Dr. Erasmo Smith Anion gap [Moles/Vol] 15.9 mmol/L Normal [facility] Comment on above: Performed By: #### C MREP #### [facility] [address] [place] [address] Dr. Erasmo Smith AST [Catalytic activity/Vol] 33 U/L Normal 15-37 [facility] Comment on above: Performed By: #### C MREP #### [facility] [address] [place] [address] Dr. Erasmo Smith Bilirubin [Mass/Vol] 0.5 mg/dL Normal 0.2-1.0 [facility] Comment on above: Performed By: #### C MREP #### [facility] [address] [place] [address] Dr. Erasmo Smith Calcium [Mass/Vol] 9.1 mg/dL Normal 8.5-10.1 [facility] Comment on above: Performed By: #### C MREP #### [facility] [address] [address] [address] Erasmo Smith Chloride [Moles/Vol] 103 mmol/L Normal 98-107 [facility] Comment on above: Performed By: #### C MREP #### [facility] [address] [address] [address] Erasmo Smith CO2 [Moles/Vol] 25.1 mmol/L Normal 21.0-32.0 [facility] Comment on above: Performed By: #### C MREP #### [facility] [address] [place] [address] Dr. Erasmo Smith Creatinine [Mass/Vol] 0.77 mg/dL Normal 0.55-1.02 [facility] Comment on above: Performed By: #### C MREP #### [facility] [address] [place] [address] Dr. Erasmo Smith EGFR-AF BENINESE >60 Normal >=60 [facility] Comment on above: Performed By: #### C MREP #### [facility] [address] [place] [address] Dr. Erasmo Smith EGFR-NON AF BENINESE >60 Normal >=60 [facility] Comment on above: Performed By: #### C MREP #### [facility] [address] [place] [address] Dr. Erasmo Smith Globulin (S) [Mass/Vol] 4.3 g/dL Normal [facility] Comment on above: Performed By: #### C MREP #### [facility] [address] [place] [address] Dr. Erasmo Smith Glucose [Mass/Vol] 92 mg/dL Normal 74-106 [facility] Comment on above: Performed By: #### C MREP #### [facility] [address] [place] [address] Dr. Erasmo Smith Potassium [Moles/Vol] 4.0 mmol/L Normal 3.5-5.1 [facility] Comment on above: Performed By: #### C MREP #### [facility] [address] [address] [address] Erasmo Smith Protein [Mass/Vol] 7.9 g/dL Normal 6.4-8.2 [facility] Comment on above: Performed By: #### C MREP #### [facility] [address] [address] [address] Erasmo Smith Sodium [Moles/Vol] 140 mmol/L Normal 136-145 [facility] Comment on above: Performed By: #### C MREP #### [facility] [address] [address] [address] Erasmo Smith Urea nitrogen [Mass/Vol] 17.0 mg/dL Normal 7.0-18.0 [facility] Comment on above: Performed By: #### C MREP #### [facility] [address] [address] [address] Erasmo Smith Urea nitrogen/Creatinine [Mass ratio] 22.1 mg/mg Normal [facility] Comment on above: Performed By: #### C MREP #### [facility] [address] [address] [address] Erasmo Smith PROTIMEon 02-24-2022 INR Coag (PPP) [Relative time] 2.28 {INR} Normal [facility] Comment on above: Performed By: #### P T, PTT ####[facility] [address] [address]Dr. Erasmo Smith INR GUIDELINES SEE BELOW Normal [facility] Comment on above: Result Comment: ABNER RED INR: 2.0 - 3.0 CONDITIONS NOT LISTED BELOW 2.5 - 3.5 FOR PROSTHETIC HEART VALVE REPLACEMENT 2.5 - 3.5 RECURRENT THROMBOSIS Performed By: #### P T, PTT ####[facility] [address] [place] [address]Dr. Erasmo Smith PT Coag (PPP) [Time] 23.3 s Critically high 9.0-11.6 [facility] Comment on above: Performed By: #### P T, PTT ####[facility] [address] [place] [address]Dr. Erasmo Smith PTTon 02-24-2022 aPTT Coag (Bld) [Time] 34.7 s Normal 22.3-36.2 Th e [facility] Comment on above: Performed By: #### P T, PTT ####[facility] [address] [place], [place] [address]IrMeena Smith TROPONIN, HIGH SENSITIVITYon 02-24-2022 HSTROP 6.6 pg/mL Normal 4.0-51.3 [facility] Comment on above: Result Comment: CUT- OFF POINTS HAVE BEEN ESTABLISHED BASED ON THE FOURTH UNIVERSAL DEFINITIONS OF MYOCARDIAL INFARCTION. THE UPPER REFERENCE LIMIT (URL) OF TROPONIN, DEFINED THE 99TH PERCENTILE OF cTnI DISTRIBUTION IN A REFERENCE POPULATION, HAS BEEN CONFIRMED THE DECISION THRESHOLD FOR LA DIAGNOSIS. Performed By: #### C MREP #### [facility] [address] [place], [place] [address] Dr. Erasmo Smith PROTHROMBIN TIMEon 2 ANTICOAGULANT COUMADIN Normal [facility] INR Coag (PPP) [Relative time] 1.2 {INR} High 0.86-1.16 [facility] Comment on above: Result Comment: INR Theraputic Range: 2.0-3.5 Performed at [address] [address] PT Coag (PPP) [Time] 12.7 s Normal 9.3-12.7 [facility] Social History Date Type Detail Facility Start: 09-02-2023 Alcohol intake Not Asked [facility] Start: 08-30-2023 End: 09-06-2023 Sex Assigned At [facility] Start: 08-30-2023 End: 09-06-2023 History of Social function [facility] Start: 08-18-2023 End: 03-02-2024 Tobacco smoking status NHIS Ex-smoker [facility] Start: 08-18-2023 Alcohol Comment (Audit-C) : Negative [facility] Start: 1945 Sex Assigned At Female F [facility] Start: 1945 Sex Assigned At Not on file [facility] History of tobacco use Current smoker [facility] History of tobacco use Cigarette Smoker [facility] Within the last year , have you been afraid of your partner or ex-partner? No [facility] How often do you att end restorationism or taoist services? Patient refused [facility] Do you belong to any clubs or organizations such as restorationism groups, unions, fraternal or athletic groups, or [...] buy more. DK or Refused [facility] Vital Signs Date Time Vital Sign Value Performing Clinician Facility 03-02-2024 11:51-0400 Blood Pressure Location [facility] [place] 03-02-2024 11:51-0400 Diastolic blood pressure 75 mm[Hg] [facility] 03-02-2024 11:51-0400 Heart rate 71 /min [employer] 03-02-2024 11:51-0400 Respiratory rate 16 /min [facility] [employer] [facility] 03-02-2024 11:51-0400 Systolic blood pressure 118 mm[Hg] [employer] 10-07-2021 16:00-0500 Body height 146.69 cm Hong Nevarez Other [facility] Other 10-07-2021 16:00-0500 Body mass index (BMI) [Ratio] 51.01 kg/m2 Hong Nevarez Other [facility] Other 10-07-2021 16:00-0500 Body weight 109.77 kg Hong Nevarez Other [facility] Other 08-26-2021 15:15-0500 Body height 146.69 cm Hong Nevarez Other [facility] Other 08-26-2021 15:15-0500 Body mass index (BMI) [Ratio] 51.07 kg/m2 Hong Nevarez Other [facility] Other 08-26-2021 15:15-0500 Body weight 109.91 kg Hong Nevarez Other [facility] Other Functional Status Date Assessment Result Facility 03-02-2024 Functional Status N/A [facility] [place] Clinical Notes 08-26-2021 to 03-02-2024 Note Date & Type Note Facility 03-02-2024 Note Chief Complaint consultation for anemia HPI Staff 78 year old female presents on consultation from [facility] for anemia. Labs completed yesterday with HGB 7.9 and HCT 26.6, iron 16. Normal ferritin and TIBC. Had positive occult stool as well. Patient on Eliquis for a.fib. Notes over the past 3 weeks, she has been experiencing lightheadedness, fatigue and SOB. Denies abdominal or rectal pain. No rectal bleeding or change in bowel habits. Denies nausea or vomiting. Reports previous colonoscopy was completed approximately 7 years ago and reported normal. History of Present Illness 78 yo female with h/o atrial fibrillation, on Eliquis, CHF, COPD, CAD, htn, gastric ulcer/PUD, osteoarthritis, PSVT, spinal stenosis, cervical radiculopathy; referred from [facility] for anemia, low iron, and positive fecal occult blood; patient notice fatigue several weeks ago, seen by Dr Denis and had blood work done, sent to ED after anemia noted; no change in bms or gross blood in stools, no abd complaints; on Omeprazole daily due to GERD and hiatal hernia, well-controlled, no dysphagia or epigastric pain, no wt loss; remote h/o ulcer disease, recently on increased NSAIDs due to shoulder pain; discontinue NSAIDs 4 days ago, no Eliquis since yesterday; abd operations significant for appendectomy, tubal ligation and YANELI with BSO; she believes her last colonoscopy was 7 years ago; no tobacco use, fmhx unknown, patient adopted. Review of Systems PHQ Score Initial Depression Screen Score: 0 SCORE ROS - Provider Constitutional: no fever, no sweats, no weight loss. Eyes: no glasses, no blurred vision, no visual loss. ENMT: no dentures, no hoarseness, no swallowing difficulties, no hearing loss, no ear infection(s), no nose bleeds. Cardiovascular: normal blood pressure, no chest pain, regular heartbeat, no heart murmur. Respiratory: no shortness of breath, no cough, no asthma, no wheezing. Gastrointestinal: no nausea, no vomiting, no diarrhea, no constipation, no blood in stool, no change in bowel habits, no abdominal pain, no hepatitis. Genitourinary: no kidney stones, no urine infection, no dysuria. Musculoskeletal: no pain, yes weakness. Skin: no changing moles, no rash, no skin lumps. Neurologic: no seizures, no epilepsy, no headache. Psychiatric: no emotional or psychiatric problem. Heme/Lymph: no bleeding problems, no anemia, no blood clots, no transfusions. Allergy/Immunologic: no swollen lymph nodes/glands, no IV drug abuse. Other: Additional ROS info: Except as noted in the above Review of Systems and in the History of Present Illness, all other systems have been reviewed and are negative or noncontributory. Physical Exam Vitals & Measurements HR: 71(Peripheral) RR: 16 BP: 118/75 HT: 56 in HT: 141 cm WT: 107.6 kg WT: 236.72 lb BMI: 54.12 HEENT: normal conjunctiva, sclera clear, no scleral icterus, EOM intact, PERRLA, oral mucosa moist without lesions. Neck: trachea midline, no mass, symmetric, no thyromegaly or nodules, no adenopathy Respiratory: lungs CTA, respirations non labored. Cardiovascular: regular rate and rhythm, no murmur, no pedal edema or varicosities. Gastrointestinal: obese soft non distended, no tenderness, no masses, no palpable hernias, diastasis recti no, no hepatosplenomegaly; normal bs Lymphatic: no cervical adenopathy, no supraclavicular adenopathy. Musculoskeletal: normal gait, digits and nails without infection, nodes, cyanosis, clubbing. Skin: no rashes, no lesions, no ulcers, no subcutaneous nodules, induration. Psychiatric/Neuro: oriented to time, place, person, judgement normal, affect appropriate for age, insight intact, no focal deficits. Tests: labs reviewed,, review of old records completed , Discussed surgical options, risks, and possible complications with patient. Assessment/Plan 1. Positive fecal occult blood test (R19.5: Other fecal abnormalities) plan EGD and colonoscopy under anesthesia, informed consent obtained. 2. Iron deficiency anemia (D50.9: Iron deficiency anemia, unspecified) see # 1 3. Hiatal hernia with GERD (K44.9: Diaphragmatic hernia without obstruction or gangrene) see # 1 4. History of ulcer disease (Z87.898: Personal history of other specified conditions) see #1 Gastro-esophageal reflux disease without esophagitis (K21.9: Gastro-esophageal reflux disease without esophagitis) see # 1 Follow-up No qualifying data available Problem List/Past Medical History Ongoing Atrial fibrillation BMI 50.0-59.9, adult Cervical radiculopathy CHF (congestive heart failure) Chronic obstructive pulmonary disease Class 3 obesity Coronary atherosclerosis Essential hypertension Fatty liver Gastric ulcer Hiatal hernia Hiatal hernia with GERD History of ulcer disease Hypocalcemia Iron deficiency anemia Osteoarthritis of both knees Osteoarthritis of lumbar spine Peptic ulcer disease Positive fecal occult blood test PSVT (paroxysmal supraventricular t (more content not included)... [facility] Comment on above: Result Comment: Elec tronically Signed By: CATHERINE CUBA, Ortega Bishop\maximiliano\Date and Time Signed: 03/02/24 13:01 EDT 01-17-2024 Note Patient here for 6 m o follow up persistent afib, CAD, hypertension, and sinus node dysfunction. Her device was interrogated in the office last month. Denies chest pain, SOB, lightheadedness/syncope, and bleeding on Eliquis. Says she feels great. Review of Systems Musculoskeletal: Positive for back pain. Neurological: Positive for numbness. All other systems reviewed and are negative. [facility] 01-17-2024 Note Cardiovascular Medic [facility] SUBJECTIVE Chief Complaint Patient presents with Atrial Fibrillation Breann Starks is a 78 y.o. female here for follow-up. HPI PMHx: A-fib, atrial tachycardia s/p ablation 2005, sick sinus syndrome s/p PPM 10/2020 dual-chamber [employer], COPD, mild CAD s/p cardiac cath 2010, SHAWANDA noncompliant with mask, and obesity. She has been doing well since last seen. No significant changes. Denies c/o CP, dyspnea, orthopnea, PND, LE edema, dizziness/LH, palpitations, syncope. Patient Active Problem List Diagnosis Disorder of bursae of shoulder region Chronic obstructive lung disease (CMS/HCC) Atherosclerosis of [place] coronary artery of [place] heart without angina pectoris Diaphragmatic hernia Edema [...] Final Monocytes Absolu (more content not included)... [facility] 07-05-2023 Note [facility]rophysiology Consult Note Reason [...] sick sinus syndrome s/p PPM 10/2020 dual-chamber [employer], COPD, mild CAD s/p cardiac cath [...] could not afford DOAC. Patient underwent dual-chamber [employer] pacemaker placement on 10/13/2020. On subsequent [...] coming from the right superior pulmonary vein ------ PMH: No past medical history on file. [...] knees Hypocalcemi (more content not included)... [facility] 03-01-2023 Note [place] Electrophysiology Consult Note [...] sick sinus syndrome s/p PPM 10/2020 dual-chamber [employer], COPD, mild CAD s/p cardiac cath [...] could not afford DOAC. Patient underwent dual-chamber [employer] pacemaker placement on 10/13/2020. On subsequent [...] coming from the right superior pulmonary vein ------ PMH: History reviewed. No pertinent past medical [...] ARTHROPLASTY Bi (more content not included)... [facility] 10-07-2021 Evaluation note Encounter Date Diagnosis Assessment Notes Sep, LOJA (nonalcoholic steatohepatitis ) (ICD-10 - K75.81) OBTAIN FIBROSURE RESULTS FROM [facility] RE[facility] ON RESULTS PT ENCOURAGED WEIGHT LOSS RTO ONE YEAR WITH LABS ANNUALLY Sep, Unspecified cirrhosis of liver (ICD-10 - K74.60) [facility] Other 12-15-2021 Evaluation note* Encounter Date Diagnosis Assessment Notes Treatment Notes Treatment Clinical Notes Aug, Nonalcoholic steatohepatitis (LOJA) (ICD-10 - K75.81) RTO 6-8 WEEKS Aug, Unspecified cirrhosi s of liver (ICD-10 - K74.60) Aug, Morbid obesity (ICD- 10 - E66.01) [facility] Other Evaluation + Plan note No data available for this section [facility] [place] Evaluation noteNo assessment information available [facility] Work Phone: History general Narrative - [...] Surgical History pacemaker Hospitalization History see above [facility] Other Hospital Discharge instructions No data available for this section [facility] [place] Progress note No data available for this section [facility] [place] Summary Purpose Family History No Family History Records FoundNo Family History Records FoundNo Family History Records FoundNo Family History Records FoundNo Family History Records FoundNo Family History Records FoundNo Family History Records Found No data available for this section No Family History Records Found Advance Directives No Advanced Directives Records Found Advance Directive Response Recorded Date/ Time Advance Directives No May 2:01pm Chief Complaint and Reason for Visit Chief Complaint mri clearance Chief Complaint mri clearance lumbar radiculpathy Additional Source Comments INFORMATION SOURCE (unrecogn ized section and content) DATE CREATED AUTHOR 10/23/2021 [facility] DATE CREATED AUTHOR AUTHOR'S ORGANIZ ATION 01/22/2022 [facility] DATE CREATED AUTHOR AUTHOR'S ORGANIZ ATION 02/18/2023 [facility] DATE CREATED AUTHOR AUTHOR'S ORGANIZ ATION 11/27/2023 [facility] DATE CREATED AUTHOR AUTHOR'S ORGANIZ ATION 01/17/2024 [facility] DATE CREATED AUTHOR AUTHOR'S ORGANIZ ATION 01/28/2024 [facility] DATE CREATED AUTHOR AUTHOR'S ORGANIZ ATION 02/27/2024 [facility] DATE CREATED AUTHOR AUTHOR'S ORGANIZ ATION 03/05/2024 [facility] REASON FOR VISIT (unrecogniz [...] Team Status: Inactive Member Role Status Dates GWYN PorterC Attending Provider Active St art: October 11, 2023 End: October 11, 2023 Shaikh Cira MD Primary Care Provider Active Start: October 11, 2023 End: October 11, 2023 Highballer Relationship Specialty Start Date End Date Shaikh [...] BE BASED ON THE PRIMARY CLINICAL RECORDS. [employer] provides no warranty or guarantee of the accuracy or completeness of information in this document.
== END 2024-03-06 11:37 | disposition home or self-care (01) ==
LOC: PST 11:37
PROVIDERS: PCP Internal Medicine; Visit Provider Surgery
DX: Z01.818 Encounter for other preprocedural examination (principal); D64.9 Anemia, unspecified; R19.5 Other fecal abnormalities

== ENCOUNTER 2024-03-07 06:09 | Day surgery (SDC) | payer MEDICARE, SELFPAY ==
--- NOTE | 2024-03-07 | OP_ITS ---
OPERATION DATE: 03/07/2024 PREOPERATIVE DIAGNOSIS: Anemia. POSTOPERATIVE DIAGNOSIS: Bile reflux as well as redundant, spastic colon and sigmoid diverticulosis. PROCEDURE: EGD and colonoscopy to sigmoid colon. SURGEON: Ortega Zuleta M.D. ANESTHESIA: Monitored anesthesia care. ESTIMATED BLOOD LOSS: Zero. INDICATIONS AND CONSENT: Patient is a 78-year-old female with multiple medical problems and severe morbid obesity, on Eliquis, who was referred for worsening anemia. Indications, risks, benefits, alternatives of proceeding with EGD and colonoscopy were explained extensively to the patient, including the risks of bleeding, aspiration, esophageal/gastric/duodenal or colonic perforation or anesthetic complications. All of her questions were answered. Informed consent was obtained. PROCEDURE: Patient brought to the operating room, placed in the left lateral decubitus position. Monitored anesthesia care was provided. Bite block was placed in the patient?s mouth. Scope was inserted into the oropharynx. Under direct visualization, it was advanced into the esophagus, past the cricopharyngeus, down to the stomach. The stomach was insufflated with air. The pylorus was traversed down to the descending portion of the duodenum. There was no evidence of duodenitis or ulceration. There was no scarring within the pyloric channel. There was no old or new blood. Scope was pulled back into the stomach. There were no gastric mucosal abnormalities or pre-pyloric inflammation or ulcers. The scope was retroflexed. There was no significant hiatal hernia. There was a moderate amount of bile reflux throughout the stomach. The GE junction was noted at approximately 35 cm. There was no distal esophagitis or Coffey?s changes. The scope was then withdrawn. Patient tolerated procedure well and was positioned for colonoscopy. Rectal exam was performed, which showed no masses or blood. The scope was then inserted into the anal canal. Under direct visualization, it was advanced. Patient had a markedly spastic and tortuous colon. It was switched to a pediatric scope. With the aid of abdominal compression, it was unable to be advanced beyond the sigmoid colon. There was a severely tortuous colon as well as diverticulosis and spasm. No blood or mass lesions noted up to the sigmoid, at approximately 40-50 cm. The scope was then withdrawn. No other mucosal abnormalities were noted. There were some prominent rectal veins. Patient tolerated procedure well, was sent to recovery room in good condition. Will attempt to obtain a barium enema for further evaluation. CC: Dr. Cira GOMEZ
--- OUTSIDE RECORDS SUMMARY | 2024-03-07 06:12 | XMS_ITS ---
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 Name Role Phone ZANE MCGUIRE Admitting Unavailable [...] Unavailable ZIEBER, DR PAULA Bishop Consulting Unavailable FISHRE ., DR LUISANA Herbert Primary Care Unavailable [...] Primary Care Unavailable THANG Clement Attending Provider [phone] MD Janice Denis Primary Care Provider [phone] THANG Clement Attending Provider [phone] Cira CUBA [facility] Primary Care Provider [phone] Claire Clement Admitting Unavailable Claire Clement Attending Unavailable abioduntxalysa, [facility] Primary Care Unavailable Kayley Reeder Admitting Unavailable Kayley Reeder Attending Unavailable [facility] Primary Care Unavailable Claire Clement Admitting Unavailable Claire Clement Attending [facility]available [facility] Primary Care Unavailable Giedraitis , [...] [novacaine] Propensity to adverse reactions (disorder) 2 [facility] Repository (2 sources) NSAIDs Propensity to adverse reactions HEART ISSUES [employer] Other (1 source) Adhesive agent Drug allergy (disorder) 4 [facility] Repository (1 source) NSAIDs Drug allergy (disorder) 4 [facility] Repository (1 source) meloxicam; Translations: [Mobic] Drug Allergy [facility] Repository (1 source) No Known Medication Allergies; Translations: [No Known Medication Allergies] Propensity to adverse reactions (disorder) [facility] Repository Encounters Encounter Date Encounter Type Care Provider Facility Start: 03-02-2024 End: 03-02-2024 ambulatory SHAIKH CIRA Facility:[facility] Start: 03-02-2024 End: 03-02-2024 Patient encounter procedure Ortega ALEXANDER [facility] [place] Start: 03-01-2024 ambulatory SHAIKH CIRA Facility: [facility] Start: 02-27-2024 End: 02-27-2024 ambulatory SHAIKH CIRA Not Available Start: 01-17-2024 End: 01-17-2024 ambulatory NICANOR [facility] Start: 12-29-2023 End: 12-29-2023 ambulatory SHAIKH CIRA Not Available Start: 12-27-2023 End: 12-27-2023 ambulatory YANCY [facility] Start: 12-26-2023 End: 12-27-2023 ambulatory Miguel Garcia MD Facility:[facility] Start: 12-05-2023 End: 12-06-2023 ambulatory Miguel Garcia MD Facility:[facility] Start: 11-16-2023 End: 11-16-2023 ambulatory Kayley Reeder Facility:[facility] Start: 11-07-2023 End: 11-07-2023 ambulatory SHAIKH CIRA Not Available Start: 10-17-2023 Cristobal Denis MD Work Phone: [facility] Start: 10-17-2023 Cristobal Denis MD Work Phone: [facility] Start: 10-17-2023 End: 10-17-2023 ambulatory SHAIKH CIRA Not Available Start: 10-11-2023 End: 10-11-2023 ambulatory MD Shaikh Denis Work Phone: [facility] Work Phone: Start: 10-11-2023 End: 10-11-2023 Patient encounter procedure MD Shaikh Denis Work Phone: [facility]-MRI [place] Work Phone: Start: 09-08-2023 End: 09-08-2023 ambulatory Claire Clement Facility:[facility] Start: 09-08-2023 End: 09-08-2023 ambulatory MD Shaikh Denis Work Phone: [facility] Work Phone: Start: 09-08-2023 End: 09-08-2023 Patient encounter procedure MD Shaikh Denis Work Phone: [facility]-Pacemaker Check Start: 09-06-2023 End: 09-06-2023 ambulatory SHAIKH CIRA Not Available Start: 09-06-2023 Patient encounter procedure Shaikh Cira CUBA Work Phone: [facility] Start: 07-08-2023 End: 07-08-[address] [facility] Start: 07-05-2023 End: 07-05-[address] [facility] Start: 04-11-2023 End: 04-12-2023 ambulatory Miguel Garcia MD Facility:[facility] Start: 03-01-2023 End: 03-01-2023 ambulatory YANCY [facility] Start: 01-31-2023 End: 02-01-2023 ambulatory ANDLUIS MANUEL [...] Start: 10-13-2022 End: 11-10-2022 ambulatory SHAIKH Kymberly EDNIS Facility:[facility] Start: 09-13-2022 End: 10-13-[address] [...] 10-07-2021 End: 10-07-2021 ambulatory Hong Nevarez Other [employer] Other Start: 10-07-2021 Office outpatient visit 15 minutes Hong Nevarez [facility] Start: 08-26-2021 End: 08-26-2021 ambulatory Hong Nevarez Other [employer] Other Start: 08-26-2021 Office outpatient ne w 45 minutes Hong Nevarez [facility] Start: 10-11-2020 End: 10-13-2020 Evaluation and management of inpatient ZANE MCGUIRE Facility:[facility] Immunizations Immunization Date Immunization Notes Care Provider Fa cili 08-25-2023 influenza virus vacc ine, unspecified formulation Ortega ALEXANDER [facility] [place] 07-08-2022 influenza virus vacc ine, unspecified formulation Ortega ALEXANDER [facility] 08-20-2021 influenza virus vacc ine, unspecified formulation Ortega ALEXANDER [facility] 12-09-2021 pneumococcal polysaccharide vaccine, 23 valent Ortega NILL [facility] 11-18-2020 SARS-CoV-2 (COVID-19 ) mRNA-1273 vaccine Ortega NILL [facility] 10-20-2020 SARS-CoV-2 (COVID-19 ) mRNA-1273 vaccine Ortega NILL [facility] 08-04-2020 influenza virus vacc ine, unspecified formulation Ortega NILL [facility] 08-04-2020 pneumococcal conjuga te vaccine, 13 valent Ortega NILL [facility] 08-06-2019 influenza virus vacc ine, unspecified formulation Ortega NILL [facility] 07-05-2017 influenza virus vacc ine, unspecified formulation Ortega NILL [facility] 07-05-2017 pneumococcal conjuga te vaccine, 13 valent Ortega NILL [facility] 06-29-2016 influenza virus vacc ine, unspecified formulation Ortega NILL [facility] 06-25-2015 influenza virus vacc ine, unspecified formulation Ortega NILL [facility] 06-12-2015 influenza virus vacc ine, unspecified formulation Ortega NILL [facility] 07-12-2014 influenza virus vacc ine, unspecified formulation Ortega NILL [facility] 08-07-2013 influenza virus vacc ine, unspecified formulation Ortega NILL [facility] Medications Current Medications Medication Drug Class(es) [...] 10/13/2023 Active take 1 capsule by mo [facility] every twenty-four hours Omeprazole 40 [...] 02/14/2024 Active take 1 capsule by mo [facility] every twenty-four hours Verapamil HCl [...] Daily, # 90 tab(s), Refills(s) 0, Pharmacy: [facility]/pharmacy #[id number], 141, cm, 01/11/23 10:30:00 EDT, Height/Length Dosing, 107.2, kg, 01/11/23 10:30:00 EDT, Weight Dosing Start Date: 02/15/23 Status: Ordered warfarin sodium 3 mg oral tablet (2 sources) Vitamin K Antagonist take 1 tablet by mouth every twenty-four hours Warfarin Sodium 3 MG 1 tablet Orally Once a day Active Payers Date Payer Category Payer Private Health Insurance 101 [id number] 2023 Self-pay [id number] 2023 Managed Care HMO (unspecified) [employer] A[employer]NA [id number] 2023-Present [address] [place] [address] HMO [id number] 2022 Private Health Insurance 2007 Medicare [id number]. [id number] 1959 Medicare [id number] 1959 Private Health Insurance [facility] [id number] 1945 Unknown [id number] 2.16.840.1.236261.3.579.2. 647 1945 Unknown [id number] 2.16.840.1.176171.3.579.2. 593 1945 Unknown [id number] 2.16.840.1.727210.3.579.2. 593 1945 Unknown [id number] 2.16.840.1.314432.3.579.2. 593 1945 Unknown [id number] 2.16.840.1.657904.3.579.2. 593 1945 Unknown [id number] 2.16.840.1.749817.3.579.2. 593 1945 Unknown [id number] 2.16.840.1.832825.3.579.2. 593 1945 Unknown [id number] 2.16.840.1.540786.3.579.2. 593 1945 Unknown [id number] 2.16.840.1.426905.3.579.2. 593 1945 Unknown [id number] 2.16.840.1.040630.3.579.2. 593 1945 Unknown [id number] 2.16.840.1.744865.3.579.2. 593 1945 Unknown [id number] 2.16.840.1.349270.3.579.2. 593 1945 Unknown [id number] 2.16.840.1.627539.3.579.2. 593 1945 Unknown [id number] 2.16.840.1.214758.3.579.2. 593 1945 Unknown [id number] 2.16.840.1.406843.3.579.2. 593 1945 Unknown [id number] 2.16.840.1.334648.3.579.2. 593 1945 Unknown [id number] 2.16.840.1.350710.3.579.2. 593 1945 Unknown [id number] 2.16840.1.984600.3.579.2. 593 1945 Unknown [id number] 2.16840.1.698094.3.579.2. 593 1945 Unknown [id number] 2.16840.1.308615.3.579.2. 593 1945 Unknown [id number] 2.16840.1.311806.3.579.2. 593 1945 Unknown [id number] 2.16840.1.427593.3.579.2. 593 1945 Unknown [id number] 2.16840.1.972216.3.579.2. 593 1945 Unknown [id number] 2.16.840.1.014089.3.579.2. 593 1945 Unknown [id number] 2.16.840.1.263309.3.579.2. 593 1945 Unknown [id number] 2.16.840.1.508988.3.579.2. 593 1945 Unknown [id number] 2.16.840.1.787088.3.579.2. 593 1945 Unknown [id number] 2.16.840.1.151199.3.579.2. 196 1945 Unknown [id number] 2.16.840.1.922883.3.579.2. 196 1945 Unknown [id number] 2.16.840.1.146509.3.579.2. 196 1945 Unknown [id number] 2.16.840.1.330075.3.579.2. 196 1945 Unknown [id number] 2.16.840.1.862826.3.579.2. 1259 1945 Unknown [id number] 2.16.840.1.698884.3.579.2. 9 1945 Unknown [id number] 2.16.840.1.840166.3.579.2. 1258 1945 Unknown [id number] 2.16.840.1.473529.3.579.2. 125 1945 Unknown [id number] 2.16.840.1.657119.3.579.2. 125 1945 Unknown [id number] 2.16.840.1.027924.3.579.2. 727 Medicare Medicare Outpatient [id number] [id number] Unknown [place] [id number] Unknown [id number] 2.16.840.1.275711.3.579.2. 531 Unknown [id number] 2.16.840.1.288163.3.579.2. 531 Unknown [id number] 2.16.840.1.912577.3.579.2. 531 Plan of Treatment Date Care Activity Detail Author Start: 09-12-2027 Screening for malign ant neoplasm of colon [facility] Start: 09-06-2024 Medicare Annual Well ness (AWV) Medicare Annual Wellness (AWV) [facility] Start: 11-07-2023 End: 11-07-2023 Patient encounter procedure 11/07/2023 2:30 PM EST Office Visit [facility] [address] [place] [address] Shaikh Denis MD [address] [place] [phone] [facility] Start: 10-17-2023 End: 10-17-2023 Patient encounter procedure 10/17/2023 10:15 AM EST Office Visit [facility] [address] [place] [address] Shaikh Denis MD [address] [place] [phone] Arrived [facility] Comment on above: [...] disease (3 sources) Atherosclerotic heart disease of [place] coronary artery without angina pectoris; Translations: [Coronary [...] 3 Episodic Other aftercare (1 source) terminal makeup operator (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) use of anticoagulants; Translations: [LONG-TERM CURRNT USE 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] Onset: 3 Episodic Other aftercare (1 source) Other intermediate manager (current) drug therapy; Translations: [OTH DONOR TECHNICIAN CURRENT DRUG THERAPY] Onset: 3 Episodic Other [...] for Procedure/Surger yon 03-05-2024 Consent for Procedure/Surgery [id number] #1.00TIFF Normal [facility] Ambulatory Visit Summaryon 0 03-02-2024 Ambulatory Visit Summary BREANN STARKS :1945 Visit Date:03/02/2024 Ambulatory Visit Instructions Your Care Team Attending Physician - Ortega AELXANDER MD Primary Care Physician - Barbara Dai [...] you for choosing us for your care. [facility] ED Note-Physicianon 03-02-20 24 ED Note-Physician [id number]# 1.00TIFF [facility] Insurance Correspondenceon 0 03-02-2024 Insurance Correspondence [id number] 7#1.00TIFF [facility] Lab Reportson 03-02-2024 Lab Reports [id number] #1.00TIFF [facility] 36on 01-25-2024 36 Patient called stating ever since her device was adjusted last month she's had this weird feeling in her throat. I called [employer] from [employer] and he told me this feeling she's having should not be from her device. Patient informed. I suggested she see PCP for this. She verbalized understanding. Normal [facility] Office Visiton 01-17-2024 Follow-up visit [id number] Breann Starks 1945 F Date Provider Department Center 01/17/2024 NICANOR REGAN Family History Adopted: Yes Family history unknown: Yes Family Status - Relation Status Age at Mother Father Level of Service:60937 SC OFFICE/OUTPATIENT ESTABLISHED MOD MDM 30 MIN Reason for Visit and Comments: Atrial Fibrillation [80] Normal [facility] XR lumbar spine 6V w bending on 11-16-2023 XR lumbar spine 6V w bending [facility] Main [place] [id number] XRay Report Signed Patient: Breann Starks MR#: [id number] 171 : 1945 Acct:[id number] Age/Sex: 77 / F ADM Date: 11/16/23 Loc: XD Room: Type: [facility] Attending Dr: Kayley DESIR Copies to: [...] Benton Jr., D.OMeena11/16/2023 4:37 PM Dictation Location: [place] [address] Transcribed By: [facility] 11/16/23 1637 Dictated By: Francisco J Benton Jr, DO 11/16/23 1636 Signed By: 11/16/23 1637 [facility] MR lumbar spine wo conon MR lumbar spine wo con [facility] [address] XRay Report Signed Patient: Breann Starks MR#: [id number] 171 : 1945 Acct:[id number] Age/Sex: 77 / F ADM Date: 10/11/23 Loc: Room: Type: [facility] Attending Dr: Claire DESIR Copies to: THANG Porter Ordering Provider: THANG Porter Date of Service: 10/11/23 MR/MR lumbar spine wo con: LUMBAR RADICULPATHY ([id number]) XR/XR pre/post mri xray: LUMBAR RADICULPATHY CLINICAL [...] Eleanor Reece M.D.10/11/2023 4:10 PM Dictation Location: [place] [address] Transcribed By: [facility] 10/11/23 161 Dictated By: Eleanor Reece MD 10/11/23 1133 Signed By: 10/11/23 1610 [facility] Office Visiton 07-05-2023 Follow-up visit [id number] Breann Starks 1945 F Date Provider Department Center 07/05/2023 YANCY IVERSON Family History Adopted: Yes Family history unknown: Yes Family Status - Relation Status Age at Mother Father Level of Service:89721 SC OFFICE/OUTPATIENT ESTABLISHED LOW MDM 20-29 MIN [facility] Office Visiton 03-01-2023 Follow-up visit [id number] Breann Starks 1945 F Date Provider Department Center 03/01/2023 YANCY IVERSON Family History Adopted: Yes Family history unknown: Yes Family Status - Relation Status Age at Mother Father Level of Service:76645 SC OFFICE/OUTPATIENT ESTABLISHED MOD MDM 30-39 MIN Reason for Visit and Comments: Follow-up [572670] - 3 month follow up Normal [facility] XR LSPINE W_OBLS AND FLEX_EX Ton 01-31-2023 [...] by: PAULA DELGADO Date: 2023-01-31 11:34 Normal [facility] LIPID PROFILEon 12-16-2022 CHOL-HDL RATIO NORM SEE BELOW Normal [facility] Comment on above: Result Comment: 3.3 - 4.4 LOW RISK 4.4 - 7.1 AVERAGE RISK 7.1 - 11.0 MODERATE RISK >11.0 HIGH RISK Performed By: #### L IPID ####[facility] [address] [place] [address]Dr. Erasmo Smith Cholesterol [Mass/Vol] 105 mg/dL Normal <=[address] [facility] Comment on above: Performed By: #### L IPID ####[facility] [address] [place] [address]Dr. Erasmo Smith Cholesterol in HDL [Mass/Vol] 48 mg/dL Normal 40-60 [facility] Comment on above: Performed By: #### L IPID ####[facility] [address] [place] [address]Dr. Erasmo Smith Cholesterol in LDL [Mass/Vol] 48.2 mg/dL Normal [facility] Comment on above: Performed By: #### L IPID ####[facility] [address] [place] [address]Dr. Erasmo Smith Cholesterol.total/Chol esterol in HDL [Mass ratio] 2.2 {ratio} Normal [facility] Comment on above: Performed By: #### L IPID ####[facility] [address] [place] [address]Dr. Erasmo Smith HDL NORMAL > or = 60 mg/dl - LOW CARDIOVASCULAR RISK <40 mg/dl - HIGH CARDIOVASCULAR RISK Normal [facility] Comment on above: Performed By: #### L IPID ####[facility] [address] [place] [address]Dr. Erasmo Smith LDL CALC NORMAL SEE BELOW Normal [facility] Comment on above: Result Comment: <100 mg/dl OPTIMAL 100 - 129 mg/dl NEAR OR ABOVE OPTIMAL 130 - 159 mg/dl BORDERLINE HIGH 160 - 189 mg/dl HIGH >190 mg/dl VERY HIGH Performed By: #### L IPID ####[facility] [address] [place] [address]Dr. Erasmo Smith Triglyceride [Mass/Vol] 44 mg/dL Normal <=150 [facility] Comment on above: Performed By: #### L IPID ####[facility] [address] [place] [address]Dr. Erasmo Smith VLDL CALC 8.8 mg/dL Normal [facility] Comment on above: Performed By: #### L IPID ####[facility] [address] [place] [address]Dr. Erasmo Smith CULTURE BLOODon 12-04-2022 Microscopic examination [...] Trimethoprim/Sulfame thoxazole <=20 S F Normal [facility] Comment on above: Performed By: #### B LDCX1 ####[facility] [address]sf[address]wl[address] [place] [address]Dr. Erasmo Smith BNPon 12-03-2022 Natriuretic peptide B (Bld) [Mass/Vol] 413.0 pg/mL Normal <=1,800.0 [facility] Comment on above: Performed By: #### B REGIONAL MARKETING MANAGER #### [facility] [address] [place] [address] Dr. Erasmo Smith CBC AUTO DIFFon 12-03-2022 BASO # 0.0 103/ul Normal 0.0-0.1 [facility] Comment on above: Performed By: #### C BC ####[facility] [address] [place], [place] [address]Dr. Erasmo Smith Basophils/100 WBC (Bld) 0.2 % Normal 0.2-2.0 [facility] Comment on above: Performed By: #### C BC ####[facility] [address] [place], [place] [address]DrMeena Smith EO # 0.4 103/ul Normal 0.0-0.7 [facility] Comment on above: Performed By: #### C BC ####[facility] [address] [place], [place] [address]DrMeena Smith Eosinophils/100 WBC (Bld) 2.1 % Normal 0.9-7.0 [facility] Comment on above: Performed By: #### C BC ####[facility] [address] [place], [place] [address]DrMeena Smith Erythrocyte distribution width (RBC) [Ratio] 17.2 % Critically high 11.0-15.0 [facility] Comment on above: Performed By: #### C BC ####[facility] [address] [place] [address]Dr. Erasmo Smith Hematocrit (Bld) [Volume fraction] 29.2 % Critically low 36.0-48.0 [facility] Comment on above: Performed By: #### C BC ####[facility] [address]zn[address] [place] [address]Dr. Erasmo Smith Hemoglobin (Bld) [Mass/Vol] 9.5 g/dL Critically low 12.0-16.0 [facility] Comment on above: Performed By: #### C BC ####[facility] [address] [place], [place] [address]Dr. Erasmo Smith IG # 0.13 10e3/ul Critically high 0.00-0.03 [facility] Comment on above: Performed By: #### C BC ####[facility] [address] [place], [place] [address]Dr. Erasmo Smith IG % 0.8 % Critically high 0.0-0.5 [facility] Comment on above: Performed By: #### C BC ####[facility] [address] [place], [place] [address]Dr. Erasmo Smith LYMPH # 1.8 103/ul Normal 1.2-3.8 [facility] Comment on above: Performed By: #### C BC ####[facility] [address] [place], [place] [address]Dr. Erasmo Smith Lymphocytes/100 WBC (Bld) 10.3 % Critically low 20.5-60.0 [facility] Comment on above: Performed By: #### C BC ####[facility] [address] [place], [place] [address]Dr. Erasmo Smith MANUAL DIFF REQ NO Normal [facility] Comment on above: Performed By: #### C BC ####[facility] [address] [place], [place] [address]Dr. Erasmo Smith MCH (RBC) [Entitic mass] 25.7 pg Critically low 26.7-34.0 [facility] Comment on above: Performed By: #### C BC ####[facility] [address] [place] [address]Dr. Heavenean Smith MCHC (RBC) [Mass/Vol] 32.5 g/dL Normal 29.9-35.2 [facility] Comment on above: Performed By: #### C BC ####[facility] [address] [place] [address]Dr. Erasmo Smith MCV (RBC) [Entitic vol] 79.1 fL Critically low 81.0-99.0 [facility] Comment on above: Performed By: #### C BC ####[facility] [address] [place] [address]Dr. Erasmo Smith MONO # 1.5 103/ul Critically high 0.3-0.8 [facility] Comment on above: Performed By: #### C BC ####[facility] [address] [place] [address]Dr. Erasmo Smith Monocytes/100 WBC (Bld) 8.7 % Normal 1.7-12.0 [facility] Comment on above: Performed By: #### C BC ####[facility] [address] [place], [place] [address]Dr. Erasmo Smith NEUT # 13.4 103/ul Critically high 1.4-6.5 [facility] Comment on above: Performed By: #### C BC ####[facility] [address] [place] [address]Dr. Erasmo Smith Neutrophils/100 WBC (Bld) 77.9 % Critically high 43.0-75.0 [facility] Comment on above: Performed By: #### C BC ####[facility] [address] [place] [address]Dr. Erasmo Smith Platelet mean volume (Bld) [Entitic vol] 9.3 fL Critically low 9.5-13.5 [facility] Comment on above: Performed By: #### C BC ####[facility] [address] [place] [address]Dr. Erasmo Smith PLT 205 103/ul Normal 150-450 [facility] Comment on above: Performed By: #### C BC ####[facility] [address] [place], [place] [address]EyMeena Smith RBC 3.69 106/ul Critically low 4.20-5.40 [facility] Comment on above: Performed By: #### C BC ####[facility] [address] [place], [place] [address]XqMeena Smith WBC 17.2 103/ul Critically high 4.0-11.0 [facility] Comment on above: Performed By: #### C BC ####[facility] [address] [place], [place] [address]OqMeena Smith MAGNESIUMon 12-03-2022 Magnesium [Mass/Vol] 1.9 mg/dL Normal 1.8-2.4 [facility] Comment on above: Performed By: #### B REGIONAL MARKETING MANAGER #### [facility] [address] [place] [address] [address] Erasmo Smith PROF 14(COMP METB)on 023 Albumin [Mass/Vol] 2.6 g/dL Critically low 3.4-5.[address] [facility] Comment on above: Performed By: #### B REGIONAL MARKETING MANAGER #### [facility] [address] [place] [address] [address] Erasmo Smith Albumin/Globulin [Mass ratio] 0.6 {ratio} Normal [facility] Comment on above: Performed By: #### B REGIONAL MARKETING MANAGER #### [facility] [address] [place] [address] [address] Erasmo Smith ALP [Catalytic activity/Vol] 123 U/L Critically high 46-116 [facility] Comment on above: Performed By: #### B REGIONAL MARKETING MANAGER #### [facility] [address] [address] [address] Erasmo Smith ALT [Catalytic activity/Vol] 28 U/L Normal 14-59 [facility] Comment on above: Performed By: #### B REGIONAL MARKETING MANAGER #### [facility] [address] [place] [address] Dr. Erasmo Smith Anion gap [Moles/Vol] 9.4 mmol/L Normal [facility] Comment on above: Performed By: #### B REGIONAL MARKETING MANAGER #### [facility] [address] [address] [address] Erasmo Smith AST [Catalytic activity/Vol] 21 U/L Normal 15-37 [facility] Comment on above: Performed By: #### B REGIONAL MARKETING MANAGER #### [facility] [address] [address] [address] Erasmo Smith Bilirubin [Mass/Vol] 0.3 mg/dL Normal 0.2-1.0 [facility] Comment on above: Performed By: #### B REGIONAL MARKETING MANAGER #### [facility] [address] [address] [address] Erasmo Smith Calcium [Mass/Vol] 8.3 mg/dL Critically low 8.5-10.1 [facility] Comment on above: Performed By: #### B REGIONAL MARKETING MANAGER #### [facility] [address] [address] [address] Erasmo Smith Chloride [Moles/Vol] 105 mmol/L Normal 98-107 [facility] Comment on above: Performed By: #### B REGIONAL MARKETING MANAGER #### [facility] [address] [address] [address] Erasmo Smith CO2 [Moles/Vol] 27.1 mmol/L Normal 21.0-32.0 [facility] Comment on above: Performed By: #### B REGIONAL MARKETING MANAGER #### [facility] [address] [address] [address] Erasmo Smith Creatinine [Mass/Vol] 0.55 mg/dL Normal 0.55-1.02 [facility] Comment on above: Performed By: #### B REGIONAL MARKETING MANAGER #### [facility] [address] [address] [address] Erasmo Smith EGFR-AF SOUTH [place]OREAN >60 Normal >=60 [facility] Comment on above: Performed By: #### B REGIONAL MARKETING MANAGER #### [facility] [address] [address] [address] Erasmo Smith EGFR-NON AF [place]ORE[place] >60 Normal >=60 [facility] Comment on above: Performed By: #### B REGIONAL MARKETING MANAGER #### [facility] [address] [address] [address] Erasmo Smith Globulin (S) [Mass/Vol] 4.0 g/dL Normal [facility] Comment on above: Performed By: #### B REGIONAL MARKETING MANAGER #### [facility] [address] [address] [address] Erasmo Smith Glucose [Mass/Vol] 132 mg/dL Critically high 74-106 [facility] Comment on above: Performed By: #### B REGIONAL MARKETING MANAGER #### [facility] [address] [address] [address] Erasmo Smith Potassium [Moles/Vol] 3.5 mmol/L Normal 3.5-5.1 [facility] Comment on above: Performed By: #### B REGIONAL MARKETING MANAGER #### [facility] [address] [place] [address] Dr. Erasmo Smith Protein [Mass/Vol] 6.6 g/dL Normal 6.4-8.2 [facility] Comment on above: Performed By: #### B REGIONAL MARKETING MANAGER #### [facility] [address] [place] [address] Dr. Erasmo Smith Sodium [Moles/Vol] 138 mmol/L Normal 136-145 [facility] Comment on above: Performed By: #### B REGIONAL MARKETING MANAGER #### [facility] [address] [place] [address] Dr. Erasmo Smith Urea nitrogen [Mass/Vol] 24.0 mg/dL Critically high 7.0-18.0 [facility] Comment on above: Performed By: #### B REGIONAL MARKETING MANAGER #### [facility] [address] [place] [address] Dr. Erasmo Smith Urea nitrogen/Creatinine [Mass ratio] 43.6 mg/mg Normal [facility] Comment on above: Performed By: #### B REGIONAL MARKETING MANAGER #### [facility] [address] [place] [address] Dr. Erasmo Smith PROTIMEon 12-03-2022 INR Coag (PPP) [Relative time] 4.41 {INR} Critically high [facility] Comment on above: Performed By: #### C MREP #### [facility] [address] [address] [address] Erasmo Smith INR GUIDELINES SEE BELOW Normal [facility] Comment on above: Result Comment: ABNER RED INR: 2.0 - 3.0 CONDITIONS NOT LISTED BELOW 2.5 - 3.5 FOR PROSTHETIC HEART VALVE REPLACEMENT 2.5 - 3.5 RECURRENT THROMBOSIS Performed By: #### C MREP #### [facility] [address] [address] [address] Erasmo Smith PT Coag (PPP) [Time] 43.0 s Critically high 9.0-11.6 [facility] Comment on above: Performed By: #### C MREP #### [facility] [address] [address] [address] Erasmo Smith BLOOD CULTURE ID PANELon A. baumannii Not detected Normal NOT DETECTED [facility] Comment on above: Performed By: #### B CID2 ####[facility] [address] [address]Dr. Erasmo Smith Bacteriodes fragilis Not detected Normal NOT DETECTED [facility] Comment on above: Performed By: #### B CID2 ####[facility] [address] [address]Dr. Erasmo Smith BCID CONTROLS PASSED Normal The [facility] Comment on above: Performed By: #### B CID2 ####[facility] [address] [address]Dr. Erasmo Smith BCIDBTHD BLOOD CULTURE BOTTLE INFORMATION Normal [facility] Comment on above: Performed By: #### B CID2 ####[facility] [address] [address]Dr. Erasmo Smith BCIDHD1 ANTIMICROBIAL RESISTANCE GENES Normal [facility] Comment on above: Performed By: #### B CID2 ####[facility] [address] [address]Dr. Erasmo Smith BCIDHD2 SEE BELOW Normal [facility] Comment on above: Result Comment: Note : Antimicrobial resitance can occur via multiple mechanisms. A Not Detected result for the [employer] antomicrobial resistance gene assays does not indicate antimicrobial susceptibility. Subculturing is required for species identification and susceptibility testing of isolates. Performed By: #### B CID2 ####[facility] [address] [address]Dr. Erasmo Smith BCIDHD3 Positive Normal [facility] Comment on above: Performed By: #### B CID2 ####[facility] [address] [address]Dr. Erasmo Smith BCIDHD4 Negative Normal [facility] Comment on above: Performed By: #### B CID2 ####[facility] [address] [address]Dr. Erasmo Smith BCIDHD5 YEAST Normal [facility] Comment on above: Performed By: #### B CID2 ####[facility] [address] [place], [place] [address]Dr. Erasmo Smith Bottle Set: Set 1 Normal [facility] Comment on above: Performed By: #### B CID2 ####[facility] [address] [place], [place] [address]Dr. Erasmo Smith Bottle: Anaerobic Normal [facility] Comment on above: Performed By: #### B CID2 ####[facility] [address] [place], [place] [address]Dr. Erasmo Smith C. neoformans/gattii Not detected Normal NOT DETECTED The [facility] Comment on above: Performed By: #### B CID2 ####[facility] [address] [place], [place] [address]Dr. Erasmo Smith Naye albicans Not detected Normal NOT DETECTED The [facility] Comment on above: Performed By: #### B CID2 ####[facility] [address] [address]Dr. Erasmo Smith Naye auris Not detected Normal NOT DETECTED [facility] Comment on above: Performed By: #### B CID2 ####[facility] [address] [place], [place] [address]Dr. Erasmo Smith Naye glabrata Not detected Normal NOT DETECTED The [facility] Comment on above: Performed By: #### B CID2 ####[facility] [address]ax[address] [place], [place] [address]Dr. Yiean Smith Naye Krusei Not detected Normal NOT DETECTED The [facility] Comment on above: Performed By: #### B CID2 ####[facility] [address] [place], [place] [address]Dr. Erasmo Smith Anye Parapsilosis Not detected Normal NOT DETECTED [facility] Comment on above: Performed By: #### B CID2 ####[facility] Y[address]lcfm[address] [place], [place] [address]Dr. Heavenean Luis Naye Tropicalis Not detected Normal NOT DETECTED [facility] Comment on above: Performed By: #### B CID2 ####[facility] [address]yrxa[address] [place], [place] [address]Dr. Erasmo Smith CTX-M Resistant Gene Not Applicable Normal NOT DETECTE D [facility] Comment on above: Performed By: #### B CID2 ####[facility] [address] [place], [place] [address]Dr. Erasmo Smith E. Cloacae complex Not detected Normal NOT DETECTED [facility] Comment on above: Performed By: #### B CID2 ####[facility] [address]re[address] [place], [place] [address]Dr. Erasmo Smith E. faecalis Not detected Normal NOT DETECTED [facility] Comment on above: Performed By: #### B CID2 ####[facility] D[address]vex[address] [place], [place] [address]Dr. Erasmo Smith E. faecium Not detected Normal NOT DETECTED [facility] Comment on above: Performed By: #### B CID2 ####[facility] Zfurmlrf[address] [place], [place] [address]Dr. Erasmo Smith Enterobacteriaceae Detected Critically abnormal NOT DETECTED The [facility] Comment on above: Performed By: #### B CID2 ####[facility] I[address] [place], [place] [address]Dr. Erasmo Smith Escherichia coli Detected Critically abnormal NOT DETECTED The [facility] Comment on above: Performed By: #### B CID2 ####[facility] [address] [place], [place] [address]Dr. Erasmo Smith H. influenzae Not detected Normal NOT DETECTED [facility] Comment on above: Performed By: #### B CID2 ####[facility] P[address]wfwab[address] [place], [place] [address]Dr. Erasmo Smith IMP Resistant Gene Not Applicable Normal NOT DETECTED [facility] Comment on above: Performed By: #### B CID2 ####[facility] Amxof[address]ft[address] [place], [place] [address]Dr. Erasmo Luis K. oxytoca Not detected Normal NOT DETECTED [facility] Comment on above: Performed By: #### B CID2 ####[facility] Pbsqif[address] [place], [place] [address]Dr. Heavenean Smith K. pneumoniae Not detected Normal NOT DETECTED [facility] Comment on above: Performed By: #### B CID2 ####[facility] [address]ityfb[address] [place], [place] [address]Dr. Heavenean Smith Klebsiella aerogenes Not detected Normal NOT DETECTED [facility] Comment on above: Performed By: #### B CID2 ####[facility] Z[address] [place], [place] [address]Dr. Erasmo Luis KPC Resistant Gene Not detected Normal NOT DETECTED [facility] Comment on above: Performed By: #### B CID2 ####[facility] Hzmksgkpaw[address] [place], [place] [address]Dr. Erasmo Smith List. monocytogenes Not detected Normal NOT DETECTED [facility] Comment on above: Performed By: #### B CID2 ####[facility] A[address]mtp[address] [place], [place] [address]Dr. Erasmo Luis Mcr-1 Resistant Gene Not Applicable Normal NOT DETECTE D [facility] Comment on above: Performed By: #### B CID2 ####[facility] Ouehopt[address] [place], [place] [address]Dr. Erasmo Smith mecA/C Not Applicable Normal NOT DETECTED [facility] Comment on above: Performed By: #### B CID2 ####[facility] Yhuexonaf[address] [place], [place] [address]Dr. Erasmo Smith mecA/C MREJ Not Applicable Normal NOT DETECTED [facility] Comment on above: Performed By: #### B CID2 ####[facility] [address] [address]Dr. Erasmo Smith N. meningitidis Not detected Normal NOT DETECTED [facility] Comment on above: Performed By: #### B CID2 ####[facility] I[address]stzn[address] [place], [place] [address]Dr. Erasmo Smith NDM Resistant Gene Not Applicable Normal NOT DETECTED [facility] Comment on above: Performed By: #### B CID2 ####[facility] V[address]wulx[address] [place], [place] [address]Dr. Erasmo Smith Oxa-48-like Not Applicable Normal NOT DETECTED [facility] Comment on above: Performed By: #### B CID2 ####[facility] Eqnrwmxzve[address] [place], [place] [address]Dr. Erasmo Smith Proteus Not detected Normal NOT DETECTED [facility] Comment on above: Performed By: #### B CID2 ####[facility] Q[address]jbucy[address] [place], [place] [address]Dr. Erasmo Smith Pseud. aeruginosa Not detected Normal NOT DETECTED [facility] Comment on above: Performed By: #### B CID2 ####[facility] Cer[address]fpv[address] [place], [place] [address]Dr. Erasmo Smith S. maltophilia Not detected Normal NOT DETECTED The [facility] Comment on above: Performed By: #### B CID2 ####[facility] [address] [place], [place] [address]Dr. Erasmo Smith Salmonella Not detected Normal NOT DETECTED [facility] Comment on above: Performed By: #### B CID2 ####[facility] [address]rkmz[address] [place], [place] [address]Dr. Erasmo Smith Seratia marcescens Not detected Normal NOT DETECTED [facility] Comment on above: Performed By: #### B CID2 ####[facility] [address]apvsp[address] [place], [place] [address]Dr. Erasmo Smith Site: l ac Normal [facility] Comment on above: Performed By: #### B CID2 ####[facility] A[address]wodmypw[address] [place], [place] [address]Dr. Erasmo Luis Staph. aureus Not detected Normal NOT DETECTED [facility] Comment on above: Performed By: #### B CID2 ####[facility] [address]eybp[address] [place], [place] [address]Dr. Erasmo Luis Staph. epidermidis Not detected Normal NOT DETECTED [facility] Comment on above: Performed By: #### B CID2 ####[facility] Ox[address]ryxjs[address] [place], [place] [address]Dr. Erasmo Luis Staph. lugdunensis Not detected Normal NOT DETECTED [facility] Comment on above: Performed By: #### B CID2 ####[facility] [address]tn[address] [place], [place] [address]Dr. Erasmo Smith Staphylococcus Not detected Normal NOT DETECTED [facility] Comment on above: Performed By: #### B CID2 ####[facility] O[address]ph[address] [place], [place] [address]Dr. Erasmo Smith Strep. agalactiae Not detected Normal NOT DETECTED [facility] Comment on above: Performed By: #### B CID2 ####[facility] [address]qs[address] [place], [place] [address]Dr. Erasmo Smith Strep. pneumoniae Not detected Normal NOT DETECTED [facility] Comment on above: Performed By: #### B CID2 ####[facility] Dvqklkqu[address] [place], [place] [address]Dr. Erasmo Luis Strep. pyogenes Not detected Normal NOT DETECTED [facility] Comment on above: Performed By: #### B CID2 ####[facility] Q[address]wkcjdeo[address] [place], [place] [address]Dr. Heavenean Smith Streptococcus Not detected Normal NOT DETECTED [facility] Comment on above: Performed By: #### B CID2 ####[facility] Poxqrauiwy[address] [place], [place] [address]Dr. Erasmo Smith Fran/B Resist. Gene Not detected Normal NOT DETECTED [facility] Comment on above: Performed By: #### B CID2 ####[facility] [address] [address]Dr. Erasmo Smith VIM Resistant Gene Not Applicable Normal NOT DETECTED [facility] Comment on above: Performed By: #### B CID2 ####[facility] G[address]df[address] [place], [place] [address]Dr. Erasmo Smith BNPon 12-02-2022 Natriuretic peptide B (Bld) [Mass/Vol] 1059.0 pg/mL Normal <=1,800.0 [facility] Comment on above: Performed By: #### B REGIONAL MARKETING MANAGER #### [facility] [address] [address] [address] Earsmo Smith CBC AUTO DIFFon 12-02-2022 BASO # 0.0 103/ul Normal 0.0-0.1 [facility] Comment on above: Performed By: #### C BC ####[facility] [address] [place], [place] [address]Dr. Erasmo Smith Basophils/100 WBC (Bld) 0.2 % Normal 0.2-2.0 [facility] Comment on above: Performed By: #### C BC ####[facility] W[address] [place], [place] [address]DrMeena Smith EO # 0.0 103/ul Normal 0.0-0.7 [facility] Comment on above: Performed By: #### C BC ####[facility] [address]aw[address] [place], [place] [address]DrMeena Smith Eosinophils/100 WBC (Bld) 0.0 % Critically low 0.9-7.0 [facility] Comment on above: Performed By: #### C BC ####[facility] [address]ftfu[address] [place], [place] [address]Dr. Erasmo Smith Erythrocyte distribution width (RBC) [Ratio] 17.3 % Critically high 11.0-15.0 [facility] Comment on above: Performed By: #### C BC ####[facility] [address] [place], [place] [address]DrMeena Smith Hematocrit (Bld) [Volume fraction] 31.4 % Critically low 36.0-48.0 [facility] Comment on above: Performed By: #### C BC ####[facility] [address] [address]Dr. Erasmo Smith Hemoglobin (Bld) [Mass/Vol] 10.0 g/dL Critically low 12.0-16.0 [facility] Comment on above: Performed By: #### C BC ####[facility] [address] [address]Dr. Erasmo Smith IG # 0.06 10e3/ul Critically high 0.00-0.03 [facility] Comment on above: Performed By: #### C BC ####[facility] [address] [address]Dr. Heavenean Smith IG % 0.4 % Normal 0.0-0.5 [facility] Comment on above: Performed By: #### C BC ####[facility] [address] [address]Dr. Erasmo Smith LYMPH # 1.3 103/ul Normal 1.2-3.8 [facility] Comment on above: Performed By: #### C BC ####[facility] [address] [address]Dr. Heavenean Smith Lymphocytes/100 WBC (Bld) 8.1 % Critically low 20.5-60.0 [facility] Comment on above: Performed By: #### C BC ####[facility] [address] [address]Dr. Erasmo Smith MANUAL DIFF REQ NO Normal [facility] Comment on above: Performed By: #### C BC ####[facility] [address] [address]Dr. Erasmo Luis MCH (RBC) [Entitic mass] 25.6 pg Critically low 26.7-34.0 [facility] Comment on above: Performed By: #### C BC ####[facility] [address] [address]Dr. Erasmo Luis MCHC (RBC) [Mass/Vol] 31.8 g/dL Normal 29.9-35.2 [facility] Comment on above: Performed By: #### C BC ####[facility] [address] [address]Dr. Erasmo Smith MCV (RBC) [Entitic vol] 80.3 fL Critically low 81.0-99.0 [facility] Comment on above: Performed By: #### C BC ####[facility] [address] [address]Dr. Erasmo Smith MONO # 0.6 103/ul Normal 0.3-0.8 [facility] Comment on above: Performed By: #### C BC ####[facility] [address] [address]Dr. Erasmo Luis Monocytes/100 WBC (Bld) 3.7 % Normal 1.7-12.0 [facility] Comment on above: Performed By: #### C BC ####[facility] [address] [place], [place] [address]Dr. Erasmo Smith NEUT # 14.5 103/ul Critically high 1.4-6.5 [facility] Comment on above: Performed By: #### C BC ####[facility] [address] [address]Dr. Erasmo Smith Neutrophils/100 WBC (Bld) 87.6 % Critically high 43.0-75.0 [facility] Comment on above: Performed By: #### C BC ####[facility] [address] [id number]. Erasmo Luis Platelet mean volume (Bld) [Entitic vol] 10.0 fL Normal 9.5-13.5 [facility] Comment on above: Performed By: #### C BC ####[facility] [address] [address]Dr. Erasmo Luis PLT 206 103/ul Normal 150-450 [facility] Comment on above: Performed By: #### C BC ####[facility] [address] [address]Dr. Erasmo Smith RBC 3.91 106/ul Critically low 4.20-5.40 [facility] Comment on above: Performed By: #### C BC ####[facility] [address] [place], [place] [address]Aa. Erasmo Smith WBC 16.5 103/ul Critically high 4.0-11.0 [facility] Comment on above: Performed By: #### C BC ####[facility] [address] [place], [place] [address]Sb. Erasmo Smith ECHOCARDIO M/2D COMPLETEon 0 12-02-2022 ECHOCARDIO M/2D COMPLETE Patient: BREANN STARKS Exam Date: 12/02/2022 : 1945 Gender:F Ordering : KAYLEY HOLMAN . Admission #: [id number] Family : DR LUISANA FISHER . Order #: [id number] CLICK HERE TO VIEW EXAM ECHOCARDIOGRAM REPORT [...] M.D. on 12/02/2022 at 21:58 Normal [facility] MAGNESIUMon 12-02-2022 Magnesium [Mass/Vol] 2.0 mg/dL Normal 1.8-2.4 [facility] Comment on above: Performed By: #### B REGIONAL MARKETING MANAGER #### [facility] [address] [place] [address] Dr. Erasmo Smith PROF 14(COMP METB)on 023 Albumin [Mass/Vol] 2.7 g/dL Critically low 3.4-5.0 Th e [facility] Comment on above: Performed By: #### B REGIONAL MARKETING MANAGER #### [facility] [address] [address] [address] Erasmo Smith Albumin/Globulin [Mass ratio] 0.6 {ratio} Normal [facility] Comment on above: Performed By: #### B REGIONAL MARKETING MANAGER #### [facility] [address] [address] [address] Erasmo Smith ALP [Catalytic activity/Vol] 128 U/L Critically high 46-116 [facility] Comment on above: Performed By: #### B REGIONAL MARKETING MANAGER #### [facility] [address] [place] [address] Dr. Erasmo Smith ALT [Catalytic activity/Vol] 34 U/L Normal 14-59 [facility] Comment on above: Performed By: #### B REGIONAL MARKETING MANAGER #### [facility] [address] [place] [address] Dr. Erasmo Smith Anion gap [Moles/Vol] 10.6 mmol/L Normal Th [facility] Comment on above: Performed By: #### B REGIONAL MARKETING MANAGER #### [facility] [address] [place] [address] Dr. Erasmo Smith AST [Catalytic activity/Vol] 27 U/L Normal 15-37 [facility] Comment on above: Performed By: #### B REGIONAL MARKETING MANAGER #### [facility] [address] [place] [address] Dr. Erasmo Smith Bilirubin [Mass/Vol] 0.5 mg/dL Normal 0.2-1.0 [facility] Comment on above: Performed By: #### B REGIONAL MARKETING MANAGER #### [facility] [address] [place] [address] Dr. Erasmo Smith Calcium [Mass/Vol] 8.4 mg/dL Critically low 8.5-10.[address] [facility] Comment on above: Performed By: #### B REGIONAL MARKETING MANAGER #### [facility] [address] [place] [address] Dr. Erasmo Smith Chloride [Moles/Vol] 104 mmol/L Normal 98-107 [facility] Comment on above: Performed By: #### B REGIONAL MARKETING MANAGER #### [facility] [address] [address] [address] Erasmo Smith CO2 [Moles/Vol] 26.2 mmol/L Normal 21.0-32.0 [facility] Comment on above: Performed By: #### B REGIONAL MARKETING MANAGER #### [facility] [address] [address] [address] Erasmo Smith Creatinine [Mass/Vol] 0.52 mg/dL Critically low 0.55-1.02 [facility] Comment on above: Performed By: #### B REGIONAL MARKETING MANAGER #### [facility] [address] [address] [address] Erasmo Smith EGFR-AF SOUTH [place]OREAN >60 Normal >=60 [facility] Comment on above: Performed By: #### B REGIONAL MARKETING MANAGER #### [facility] [address] [place] [address] Dr. Erasmo Smith EGFR-NON AF [place]OU[place]OREAN >60 Normal >=60 [facility] Comment on above: Performed By: #### B REGIONAL MARKETING MANAGER #### [facility] [address] [place] [address] Dr. Erasmo Smith Globulin (S) [Mass/Vol] 4.3 g/dL Normal [facility] Comment on above: Performed By: #### B REGIONAL MARKETING MANAGER #### [facility] [address] [place] [address] Dr. Erasmo Smith Glucose [Mass/Vol] 135 mg/dL Critically high 74-106 [facility] Comment on above: Performed By: #### B REGIONAL MARKETING MANAGER #### [facility] [address] [address] [address] Erasmo Smith Potassium [Moles/Vol] 3.8 mmol/L Normal 3.5-5.1 [facility] Comment on above: Performed By: #### B REGIONAL MARKETING MANAGER #### [facility] [address] [place] [address] Dr. Erasmo Smith Protein [Mass/Vol] 7.0 g/dL Normal 6.4-8.2 [facility] Comment on above: Performed By: #### B REGIONAL MARKETING MANAGER #### [facility] [address] [place] [address] Dr. Erasmo Smith Sodium [Moles/Vol] 137 mmol/L Normal 136-145 [facility] Comment on above: Performed By: #### B REGIONAL MARKETING MANAGER #### [facility] [address] [address] [address] Erasmo Smith Urea nitrogen [Mass/Vol] 16.0 mg/dL Normal 7.0-18.0 [facility] Comment on above: Performed By: #### B REGIONAL MARKETING MANAGER #### [facility] [address] [address] [address] Erasmo Smith Urea nitrogen/Creatinine [Mass ratio] 30.8 mg/mg Normal [facility] Comment on above: Performed By: #### B REGIONAL MARKETING MANAGER #### [facility] [address] [address] [address] Erasmo Smith PROTIMEon 12-02-2022 INR Coag (PPP) [Relative time] 4.39 {INR} Critically high [facility] Comment on above: Performed By: #### P T #### [facility] [address] [place] [address] Dr. Erasmo Smith INR GUIDELINES SEE BELOW Normal [facility] Comment on above: Result Comment: ABNER RED INR: 2.0 - 3.0 CONDITIONS NOT LISTED BELOW 2.5 - 3.5 FOR PROSTHETIC HEART VALVE REPLACEMENT 2.5 - 3.5 RECURRENT THROMBOSIS Performed By: #### P T #### [facility] [address] [place] [address] Dr. Erasmo Smith PT Coag (PPP) [Time] 42.8 s Critically high 9.0-11.6 [facility] Comment on above: Performed By: #### P T #### [facility] [address] [address] [address] Erasmo Smith UA RANDOM W/MICROSCOPICon BACTERIA NONE SEEN Normal NONE SEEN [facility] Comment on above: Performed By: #### U AMIC ####[facility] [address] [address]Dr. Erasmo Smith Bilirubin Ql (U) Negative Normal NEGATIVE [facility] Comment on above: Performed By: #### U AMIC ####[facility] [address] [address]Dr. Erasmo Smith CAST NONE SEEN Normal NONE SEEN [facility] Comment on above: Performed By: #### U AMIC ####[facility] [address] [address]Dr. Erasmo Smith Clarity (U) CLEAR Normal CLEAR [facility] Comment on above: Performed By: #### U AMIC ####[facility] [address] [place], [place] [address]Dr. Erasmo Smith Color (U) YELLOW Normal YELLOW [facility] Comment on above: Performed By: #### U AMIC ####[facility] [address] [place], [place] [address]Dr. Erasmo Smith Crystals LM Nom (Urine sed) NONE SEEN Normal NONE SEEN [facility] Comment on above: Performed By: #### U AMIC ####[facility] [address] [place], [place] [address]Dr. Erasmo Smith Epithelial cells LM Ql (Urine sed) RARE Normal NONE SEEN /RARE [facility] Comment on above: Performed By: #### U AMIC ####[facility] [address] [place], [place] [address]Dr. Erasmo Smith Glucose Ql (U) Negative Normal NEGATIVE [facility] Comment on above: Performed By: #### U AMIC ####[facility] [address] [place], [place] [address]Dr. Erasmo Smith Hemoglobin Ql (U) SMALL Abnormal NEGATIVE [facility] Comment on above: Performed By: #### U AMIC ####[facility] [address] [place], [place] [address]Dr. Erasmo Smith Ketones Ql (U) 15 mg/dl Abnormal NEGATIVE [facility] Comment on above: Performed By: #### U AMIC ####[facility] [address] [place], [place] [address]Dr. Erasmo Smith LEUKOCYTES Negative Normal NEGATIVE [facility] Comment on above: Performed By: #### U AMIC ####[facility] [address] [place] [address] Erasmo Smith MUCOUS NONE SEEN Normal NONE SEEN [facility] Comment on above: Performed By: #### U AMIC ####[facility] [address] [address]Dr. Erasmo Smith Nitrite Ql (U) Negative Normal NEGATIVE [facility] Comment on above: Performed By: #### U AMIC ####[facility] [address] [address]Dr. Erasmo Smith pH (U) 6.0 [pH] Normal 5-9 [facility] Comment on above: Performed By: #### U AMIC ####[facility] [address] [address]Dr. Erasmo Smith RBC 0-2 Normal 0-2 [facility] Comment on above: Performed By: #### U AMIC ####[facility] [address] [place], [place] [address]Dr. Erasmo Smith SPEC GRAVITY 1.025 Normal 1.005-<=1.02 5 [facility] Comment on above: Performed By: #### U AMIC ####[facility] [address] [address]Dr. Erasmo Smith UA PROTEIN TRACE Normal NEGATIVE/ TRACE [facility] Comment on above: Performed By: #### U AMIC ####[facility] [address] [address]Dr. Erasmo Smith Urobilinogen Qn (U) 4 {Shraddha'U}/dL Abnormal 0.2 - 1.0 [facility] Comment on above: Performed By: #### U AMIC ####[facility] [address] [address]Dr. Erasmo Smith WBC 0-2 Abnormal NONE SEEN The [facility] Comment on above: Performed By: #### U AMIC ####[facility] [address] [address]Dr. Erasmo Smith CARDIAC ROSA ELENA 3-6on 3 CK [Catalytic activity/Vol] 47 U/L Normal 26-192 [facility] Comment on above: Performed By: #### B REGIONAL MARKETING MANAGER #### [facility] [address] [place] [address] Dr. Erasmo Smith CK [Catalytic activity/Vol] 53 U/L Normal 26-192 [facility] Comment on above: Performed By: #### C MREP #### [facility] [address] [place] [address] Dr. Erasmo Smith CK.MB [Mass/Vol] 1.00 ng/mL Normal <=3.60 [facility] Comment on above: Performed By: #### B REGIONAL MARKETING MANAGER #### [facility] [address] [place] [address] Dr. Erasmo Smith CK.MB [Mass/Vol] 0.90 ng/mL Normal <=3.60 [facility] Comment on above: Performed By: #### C MREP #### [facility] [address] [place] [address] Dr. Erasmo Smith HSTROP 154.3 pg/mL Critically high 4.0-51.3 [facility] Comment on above: Result Comment: CUT- OFF POINTS HAVE BEEN ESTABLISHED BASED ON THE FOURTH UNIVERSAL DEFINITIONS OF MYOCARDIAL INFARCTION. THE UPPER REFERENCE LIMIT (URL) OF TROPONIN, DEFINED THE 99TH PERCENTILE OF cTnI DISTRIBUTION IN A REFERENCE POPULATION, HAS BEEN CONFIRMED THE DECISION THRESHOLD FOR NC DIAGNOSIS. Performed By: #### B REGIONAL MARKETING MANAGER #### [facility] [address] [place] [address] Dr. Erasmo mSith HSTROP 116.7 pg/mL Critically high 4.0-51.3 [facility] Comment on above: Result Comment: CUT- OFF POINTS HAVE BEEN ESTABLISHED BASED ON THE FOURTH UNIVERSAL DEFINITIONS OF MYOCARDIAL INFARCTION. THE UPPER REFERENCE LIMIT (URL) OF TROPONIN, DEFINED THE 99TH PERCENTILE OF cTnI DISTRIBUTION IN A REFERENCE POPULATION, HAS BEEN CONFIRMED THE DECISION THRESHOLD FOR NC DIAGNOSIS. Performed By: #### C MREP #### [facility] [address] [place] [address] Dr. Erasmo Smith CBC W MANUAL DIFFon 12-02-19 23 ATYPICAL LYMPH # Normal [facility] Comment on above: Performed By: #### C BCMAN #### [facility] [address] [place] [address] Dr. Erasmo Smith ATYPICAL LYMPH % Normal [facility] Comment on above: Performed By: #### C BCMAN #### [facility] [address] [place] [address] Dr. Erasmo Smith BAND # 0.6 103/ul Critically high 0.0-0.3 [facility] Comment on above: Performed By: #### C BCMAN #### [facility] [address] [place] [address] Dr. Erasmo Smith BAND % 3 % Normal 0-5 [facility] Comment on above: Performed By: #### C BCMAN #### [facility] [address] [place] [address] Dr. Erasmo Smith BASOM # 0.00 103/ul Normal 0.00-0.10 [facility] Comment on above: Performed By: #### C BCMAN #### [facility] [address] [place] [address] Dr. Erasmo Smith BASOM % 0.0 % Critically low 0.2-2.0 [facility] Comment on above: Performed By: #### C BCBLAISE #### [facility] [address] [place] [address] Dr. Erasmo Smith BLAST # Normal [facility] Comment on above: Performed By: #### C BCBLAISE #### [facility] [address] [place] [address] Dr. Erasmo Smith BLAST % Normal [facility] Comment on above: Performed By: #### C BCMAN #### [facility] [address] [place] [address] Dr. Erasmo Smith CORRECTED WBC Normal 4.0-11.0 [facility] Comment on above: Performed By: #### C BCMAN #### [facility] [address] [place] [address] Dr. Erasmo Smith EOS # 0.19 103/ul Normal 0.00-0.70 [facility] Comment on above: Performed By: #### C BCMAN #### [facility] [address] [place] [address] Dr. Erasmo Smith EOS% 1.0 % Normal 0.9-7.0 [facility] Comment on above: Performed By: #### C ANGELA #### [facility] [address] [address] [address] Erasmo Smith HCT 32.7 % Critically low 36.0-48.0 [facility] Comment on above: Performed By: #### C ANGELA #### [facility] [address] [address] [address] Erasmo Smith HGB 10.5 g/dl Critically low 12.0-16.0 [facility] Comment on above: Performed By: #### C ANGELA #### [facility] [address] [address] [address] Erasmo Smith LYMPHM # 0.76 103/ul Critically low 1.20-3.80 [facility] Comment on above: Performed By: #### C ANGELA #### [facility] [address] [address] [address] Erasmo Smith LYMPHM% 4.0 % Critically low 20.5-60.0 [facility] Comment on above: Performed By: #### C ANGELA #### [facility] [address] [address] [address] Erasmo Smith MCH 25.9 pg Critically low 26.7-34.0 [facility] Comment on above: Performed By: #### C ANGELA #### [facility] [address] [address] [address] Erasmo Smith MCHC 32.1 g/dl Normal 29.9-35.2 [facility] Comment on above: Performed By: #### C ANGELA #### [facility] [address] [address] [address] Erasmo Smith MCV 80.5 fL Critically low 81.0-99.0 [facility] Comment on above: Performed By: #### C ANGELA #### [facility] [address] [address] [address] Erasmo Smith METAMYELOCYTE # Normal [facility] Comment on above: Performed By: #### C ANGELA #### [facility] [address] [address] [address] Erasmo Smith METAMYELOCYTE % Normal [facility] Comment on above: Performed By: #### C ANGELA #### [facility] [address] [address] [address] Erasmo Smith MONOM# 1.14 103/ul Critically high 0.30-0.80 [facility] Comment on above: Performed By: #### C ANGELA #### [facility] [address] [address] [address] Erasmo Smith MONOM% 6.0 % Normal 1.7-12.0 [facility] Comment on above: Performed By: #### C ANGELA #### [facility] [address] [place] [address] Dr. Erasmo Smith MPV 9.4 fL Critically low 9.5-13.5 [facility] Comment on above: Performed By: #### C ANGELA #### [facility] [address] [address] [address] Erasmo Smith MYELOCYTE # Normal [facility] Comment on above: Performed By: #### C ANGELA #### [facility] [address] [place] [address] Dr. Erasmo Smith MYELOCYTE % Normal [facility] Comment on above: Performed By: #### C ANGELA #### [facility] [address] [place] [address] Dr. Erasmo Smith NRBC Normal [facility] Comment on above: Performed By: #### C ANGELA #### [facility] [address] [address] [address] Erasmo Smith PLT 195 103/ul Normal 150-450 [facility] Comment on above: Performed By: #### C ANGELA #### [facility] [address] [address] [address] Erasmo Smith RBC 4.06 106/ul Critically low 4.20-5.40 [facility] Comment on above: Performed By: #### C ANGELA #### [facility] [address] [place], [place] [address] Dr. Erasmo Smith RDW 17.7 % Critically high 11.0-15.0 [facility] Comment on above: Performed By: #### C BCMAN #### [facility] [address] [place], [place] [address] Dr. Erasmo Smith SEG # 16.34 103/ul Critically high 1.40-6.50 [facility] Comment on above: Performed By: #### C BCMAN #### [facility] [address] [place], [place] [address] Dr. Erasmo Smith SEG % 86.0 % Critically high 43.0-75.0 [facility] Comment on above: Performed By: #### C BCMAN #### [facility] [address] [place], [place] [address] Dr. Erasmo Smith WBC 19.0 103/ul Critically high 4.0-11.0 [facility] Comment on above: Performed By: #### C BCMAN #### [facility] [address] [place], [place] [address] HEAD WO CONon [...] SALOME MCCORMICK Date: 2022 14:50 Normal [facility] CULTURE BLOODon 2022 Microscopic examination of blood, culture Culture Observations: Aerobic and Anaerobic bottle positive. BCID: E. Coli Culture Observations: Refer to for VIOLET. Isolate 1 Escherichia coli Growth of Normal [facility] Comment on above: Performed By: #### B LDCX2 ####[facility] [address] [id number]. Erasmo Smith Cov[facility]-19 PCR ([facility]on 11-11 SARS-CoV-2 (COVID-19) RNA EMILY+probe Ql (Unsp spec) Not detected Normal NOT DETECTED [facility] Comment on above: Result Comment: [...] for this test is supported by the Rehabilitator of Health and Human Service's declaration that [...] used). Performed By: #### C MREP #### [facility] [id number] Erasmo Smith LACTATE/LACTIC ACIDon 2022 Lactate [Moles/Vol] 1.2 mmol/L Normal 0.4-2.0 [facility] Comment on above: Performed By: #### L ACT ####[facility] [address] [id number]. Erasmo Smith PH VENOUS BLOODon 2022 PCO2 VENOUS 37.8 mmHg Critically low 40.0-52.0 [facility] Comment on above: Performed By: #### P HVEN ####[facility] [address] [id number]. Erasmo Smith pH VENOUS 7.417 Normal 7.330-7.430 [facility] Comment on above: Performed By: #### P HVEN ####[facility] [address] [address]Dr. Erasmo Smith PROF 14(COMP METB)on 023 Albumin [Mass/Vol] 3.1 g/dL Critically low 3.4-5.[address] [facility] Comment on above: Performed By: #### H ALEXSANDER, CMP ####[facility] [address] [address]Dr. Erasmo Smith Albumin/Globulin [Mass ratio] 0.8 {ratio} Normal [facility] Comment on above: Performed By: #### H ALEXSANDER, CMP ####[facility] [address] [address]Dr. Erasmo Smith ALP [Catalytic activity/Vol] 194 U/L Critically high 46-116 [facility] Comment on above: Performed By: #### H ALEXSANDER, CMP ####[facility] [address] [place], [place] [address]Dr. Erasmo Smith ALT [Catalytic activity/Vol] 37 U/L Normal 14-59 [facility] Comment on above: Performed By: #### H ALEXSANDER, CMP ####[facility] [address] [place], [place] [address]Dr. Erasmo Smith Anion gap [Moles/Vol] 14.6 mmol/L Normal [facility] Comment on above: Performed By: #### H ALEXSANDER, CMP ####[facility] [address] [place], [place] [address]Dr. Erasmo Smith AST [Catalytic activity/Vol] 32 U/L Normal 15-37 [facility] Comment on above: Performed By: #### H ALEXSANDER, CMP ####[facility] [address] [address]Dr. Erasmo Smith Bilirubin [Mass/Vol] 1.0 mg/dL Normal 0.2-1.0 [facility] Comment on above: Performed By: #### H ALEXSANDER, CMP ####[facility] [address] [place], [place] [address]Dr. Erasmo Smith Calcium [Mass/Vol] 8.9 mg/dL Normal 8.5-10.1 [facility] Comment on above: Performed By: #### H ALEXSANDER, CMP ####[facility] [address] [address]Dr. Erasmo Smith Chloride [Moles/Vol] 103 mmol/L Normal 98-107 [facility] Comment on above: Performed By: #### H ALEXSANDER, CMP ####[facility] [address] [address]Dr. Heavenean Smith CO2 [Moles/Vol] 23.6 mmol/L Normal 21.0-32.0 [facility] Comment on above: Performed By: #### H ALEXSANDER, CMP ####[facility] [address] [place], [place] [address]Dr. Erasmo Smith Creatinine [Mass/Vol] 0.69 mg/dL Normal 0.55-1.02 [facility] Comment on above: Performed By: #### H ALEXSANDER, CMP ####[facility] [address] [place], [place] [address]Dr. Heavenean Luis EGFR-AF SOUTH [place]OREAN >60 Normal >=60 [facility] Comment on above: Performed By: #### H ALEXSANDER, CMP ####[facility] [address] [place], [place] [address]Dr. Erasmo Smith EGFR-NON AF SOU[place]OREAN >60 Normal >=60 [facility] Comment on above: Performed By: #### H ALEXSANDER, CMP ####[facility] [address] [address]Dr. Erasmo Smith Globulin (S) [Mass/Vol] 4.1 g/dL Normal [facility] Comment on above: Performed By: #### H ALEXSANDER, CMP ####[facility] [address] [address]Dr. Erasmo Smith Glucose [Mass/Vol] 121 mg/dL Critically high 74-106 [facility] Comment on above: Performed By: #### H ALEXSANDER, CMP ####[facility] [address] [address]Dr. Erasmo Smith Potassium [Moles/Vol] 3.2 mmol/L Critically low 3.5-5.1 [facility] Comment on above: Performed By: #### Kymberly BELTRE, CMP ####[facility] [address] [place] [address]Dr. Erasmo Smith Protein [Mass/Vol] 7.2 g/dL Normal 6.4-8.2 The [facility] Comment on above: Performed By: #### Kymberly BELTRE, CMP ####[facility] [address] [place] [address]Dr. Erasmo Smith Sodium [Moles/Vol] 138 mmol/L Normal 136-145 The [facility] Comment on above: Performed By: #### Kymberly BELTRE, CMP ####[facility] [address] [place] [address]Dr. Erasmo Smith Urea nitrogen [Mass/Vol] 17.0 mg/dL Normal 7.0-18.0 [facility] Comment on above: Performed By: #### Kymberly BELTRE, CMP ####[facility] [address] [place] [address]Dr. Erasmo Smith Urea nitrogen/Creatinine [Mass ratio] 24.6 mg/mg Normal [facility] Comment on above: Performed By: #### Kymberly BELTRE, CMP ####[facility] [address] [place] [address]DrMeena Smith PROTIMEon 2022 INR Coag (PPP) [Relative time] 3.58 {INR} Normal [facility] Comment on above: Performed By: #### P T, PTT #### [facility] [address] [address] [address] Erasmo Smith INR GUIDELINES SEE BELOW Normal [facility] Comment on above: Result Comment: ABNER RED INR: 2.0 - 3.0 CONDITIONS NOT LISTED BELOW 2.5 - 3.5 FOR PROSTHETIC HEART VALVE REPLACEMENT 2.5 - 3.5 RECURRENT THROMBOSIS Performed By: #### P T, PTT #### [facility] [address] [address] [address] Erasmo Smith PT Coag (PPP) [Time] 35.3 s Critically high 9.0-11.6 [facility] Comment on above: Performed By: #### P T, PTT #### [facility] [address] [address] [address] Erasmo Smith PTTon 2022 aPTT Coag (Bld) [Time] 40.3 s Critically high 22.3-36. 2 [facility] Comment on above: Performed By: #### P T, PTT #### [facility] [address] [place] [address] Dr. Erasmo Smith TROPONIN, HIGH SENSITIVITYon 2022 HSTROP 218.0 pg/mL Critically high 4.0-51.3 The [facility] Comment on above: Result Comment: CUT- OFF POINTS HAVE BEEN ESTABLISHED BASED ON THE FOURTH UNIVERSAL DEFINITIONS OF MYOCARDIAL INFARCTION. THE UPPER REFERENCE LIMIT (URL) OF TROPONIN, DEFINED THE 99TH PERCENTILE OF cTnI DISTRIBUTION IN A REFERENCE POPULATION, HAS BEEN CONFIRMED THE DECISION THRESHOLD FOR NC DIAGNOSIS. Performed By: #### B REGIONAL MARKETING MANAGER #### [facility] [address] [place] [address] Dr. Erasmo Smith HSTROP 194.7 pg/mL Critically high 4.0-51.3 [facility] Comment on above: Result Comment: CUT- OFF POINTS HAVE BEEN ESTABLISHED BASED ON THE FOURTH UNIVERSAL DEFINITIONS OF MYOCARDIAL INFARCTION. THE UPPER REFERENCE LIMIT (URL) OF TROPONIN, DEFINED THE 99TH PERCENTILE OF cTnI DISTRIBUTION IN A REFERENCE POPULATION, HAS BEEN CONFIRMED THE DECISION THRESHOLD FOR NC DIAGNOSIS. Performed By: #### C MREP #### [facility] [address] [place] [address] Dr. Erasmo Smith XR CHEST 1 Von [...] by: HONG ALSTON Date: 2022 14:18 Normal [facility] MG MAMM SCREEN 3D TOÑITO CADon 11-26-2022 MG MAMM SCREEN 3D TOÑITO CAD Patient: BREANN STARKS Exam Date: 11/26/2022 : 1945 Gender:F Ordering : DR LUISANA FISHER . Admission #: [id number] Family : Order #: [id number] CLICK HERE TO VIEW EXAM RADIOLOGY REPORT [...] Treatments None Family Cancers None LOCATION: [facility] BREAST COMPOSITION: Heterogeneously dense,which may [...] Delgado M.D. on 11/26/2022 at 14:13 Normal [facility] PROF 14(COMP METB)on 022 Albumin [Mass/Vol] 3.8 g/dL Normal 3.4-5.0 [facility] Comment on above: Performed By: #### C MREP #### [facility] [address], [place] [address] Dr. Erasmo Smith Albumin/Globulin [Mass ratio] 0.8 {ratio} Normal [facility] Comment on above: Performed By: #### C MREP #### [facility] [address] [address] [address] Erasmo Smith ALP [Catalytic activity/Vol] 102 U/L Normal 46-116 [facility] Comment on above: Performed By: #### C MREP #### [facility] [address] [place] [address] Dr. Erasmo Smith ALT [Catalytic activity/Vol] 47 U/L Normal 14-59 [facility] Comment on above: Performed By: #### C MREP #### [facility] [address] [place] [address] Dr. Erasmo Smith Anion gap [Moles/Vol] 12.5 mmol/L Normal [facility] Comment on above: Performed By: #### C MREP #### [facility] [address] [place] [address] Dr. Erasmo Smith AST [Catalytic activity/Vol] 36 U/L Normal 15-37 [facility] Comment on above: Performed By: #### C MREP #### [facility] [address] [place] [address] Dr. Erasmo Smith Bilirubin [Mass/Vol] 0.3 mg/dL Normal 0.2-1.0 [facility] Comment on above: Performed By: #### C MREP #### [facility] [address] [place] [address] Dr. Erasmo Smith Calcium [Mass/Vol] 8.9 mg/dL Normal 8.5-10.1 [facility] Comment on above: Performed By: #### C MREP #### [facility] [address] [place] [address] Dr. Erasmo Smith Chloride [Moles/Vol] 106 mmol/L Normal 98-107 [facility] Comment on above: Performed By: #### C MREP #### [facility] [address] [place] [address] Dr. Erasmo Smith CO2 [Moles/Vol] 26.9 mmol/L Normal 21.0-32.0 [facility] Comment on above: Performed By: #### C MREP #### [facility] [address] [place] [address] Dr. Erasmo Smith Creatinine [Mass/Vol] 0.79 mg/dL Normal 0.55-1.02 [facility] Comment on above: Performed By: #### C MREP #### [facility] [address] [address] [address] Erasmo Smith EGFR-AF SOUTH KOREAN >60 Normal >=60 [facility] Comment on above: Performed By: #### C MREP #### [facility] [address] [address] [address] Erasmo Smith EGFR-NON AF [place]OREAN >60 Normal >=60 [facility] Comment on above: Performed By: #### C MREP #### [facility] [address] [address] [address] Erasmo Smith Globulin (S) [Mass/Vol] 4.6 g/dL Normal [facility] Comment on above: Performed By: #### C MREP #### [facility] [address] [place] [address] Dr. Erasmo Smith Glucose [Mass/Vol] 102 mg/dL Normal 74-106 [facility] Comment on above: Performed By: #### C MREP #### [facility] [address] [address] [address] Erasmo Smith Potassium [Moles/Vol] 4.4 mmol/L Normal 3.5-5.1 [facility] Comment on above: Performed By: #### C MREP #### [facility] [address] [address] [address] Erasmo Smith Protein [Mass/Vol] 8.4 g/dL Critically high 6.4-8.2 [facility] Comment on above: Performed By: #### C MREP #### [facility] [address] [address] [address] Erasmo Smith Sodium [Moles/Vol] 141 mmol/L Normal 136-145 [facility] Comment on above: Performed By: #### C MREP #### [facility] [address] [address] [address] Erasmo Smith Urea nitrogen [Mass/Vol] 28.0 mg/dL Critically high 7.0-18.0 [facility] Comment on above: Performed By: #### C MREP #### [facility] [address] [place] [address] Dr. Erasmo Smith Urea nitrogen/Creatinine [Mass ratio] 35.4 mg/mg Normal [facility] Comment on above: Performed By: #### C MREP #### [facility] [address] [place] [address] Dr. Erasmo Smith CBC AUTO DIFFon 07-12-2022 BASO # 0.1 103/ul Normal 0.0-0.1 [facility] Comment on above: Performed By: #### B REGIONAL MARKETING MANAGER #### [facility] [address] [place] [address] Dr. Erasmo Smith Basophils/100 WBC (Bld) 0.5 % Normal 0.2-2.0 [facility] Comment on above: Performed By: #### B REGIONAL MARKETING MANAGER #### [facility] [address] [place] [address] Dr. Erasmo Smith EO # 0.2 103/ul Normal 0.0-0.7 [facility] Comment on above: Performed By: #### B REGIONAL MARKETING MANAGER #### [facility] [address] [place] [address] Dr. Erasmo Smith Eosinophils/100 WBC (Bld) 2.5 % Normal 0.9-7.0 [facility] Comment on above: Performed By: #### B REGIONAL MARKETING MANAGER #### [facility] [address] [place] [address] Dr. Erasmo Smith Erythrocyte distribution width (RBC) [Ratio] 17.2 % Critically high 11.0-15.0 [facility] Comment on above: Performed By: #### B REGIONAL MARKETING MANAGER #### [facility] [address] [place] [address] Dr. Erasmo Smith Hematocrit (Bld) [Volume fraction] 35.0 % Critically low 36.0-48.0 [facility] Comment on above: Performed By: #### B REGIONAL MARKETING MANAGER #### [facility] [address] [place] [address] Dr. Erasmo Smith Hemoglobin (Bld) [Mass/Vol] 11.3 g/dL Critically low 12.0-16.0 [facility] Comment on above: Performed By: #### B REGIONAL MARKETING MANAGER #### [facility] [address] [place] [address] Dr. Erasmo Smith IG # 0.02 10e3/ul Normal 0.00-0.03 [facility] Comment on above: Performed By: #### B REGIONAL MARKETING MANAGER #### [facility] [address] [place] [address] Dr. Erasmo Smith IG % 0.2 % Normal 0.0-0.5 [facility] Comment on above: Performed By: #### B REGIONAL MARKETING MANAGER #### [facility] [address] [place] [address] Dr. Erasmo Smith LYMPH # 2.3 103/ul Normal 1.2-3.8 [facility] Comment on above: Performed By: #### B REGIONAL MARKETING MANAGER #### [facility] [address] [place] [address] Dr. Erasmo Smith Lymphocytes/100 WBC (Bld) 25.4 % Normal 20.5-60.0 [facility] Comment on above: Performed By: #### B REGIONAL MARKETING MANAGER #### [facility] [address] [place] [address] Dr. Erasmo Smith MANUAL DIFF REQ NO Normal [facility] Comment on above: Performed By: #### B REGIONAL MARKETING MANAGER #### [facility] [address] [place] [address] Dr. Erasmo Smith MCH (RBC) [Entitic mass] 25.5 pg Critically low 26.7-34.0 [facility] Comment on above: Performed By: #### B REGIONAL MARKETING MANAGER #### [facility] [address] [place] [address] Dr. Erasmo Smith MCHC (RBC) [Mass/Vol] 32.3 g/dL Normal 29.9-35.2 [facility] Comment on above: Performed By: #### B REGIONAL MARKETING MANAGER #### [facility] [address] [place] [address] Dr. Erasmo Smith MCV (RBC) [Entitic vol] 78.8 fL Critically low 81.0-99.0 [facility] Comment on above: Performed By: #### B REGIONAL MARKETING MANAGER #### [facility] [address] [place] [address] Dr. Erasmo Smith MONO # 0.7 103/ul Normal 0.3-0.8 [facility] Comment on above: Performed By: #### B REGIONAL MARKETING MANAGER #### [facility] [address] [place] [address] Dr. Erasmo Smith Monocytes/100 WBC (Bld) 7.5 % Normal 1.7-12.0 [facility] Comment on above: Performed By: #### B REGIONAL MARKETING MANAGER #### [facility] [address] [place] [address] Dr. Erasmo Smith NEUT # 5.9 103/ul Normal 1.4-6.5 [facility] Comment on above: Performed By: #### B REGIONAL MARKETING MANAGER #### [facility] [address] [place] [address] Dr. Erasmo Smith Neutrophils/100 WBC (Bld) 63.9 % Normal 43.0-75.0 [facility] Comment on above: Performed By: #### B REGIONAL MARKETING MANAGER #### [facility] [address] [place] [address] Dr. Erasmo Smith Platelet mean volume (Bld) [Entitic vol] 9.0 fL Critically low 9.5-13.5 [facility] Comment on above: Performed By: #### B REGIONAL MARKETING MANAGER #### [facility] [address] [place] [address] Dr. Erasmo Smith PLT 305 103/ul Normal 150-450 [facility] Comment on above: Performed By: #### B REGIONAL MARKETING MANAGER #### [facility] [address] [place] [address] Dr. Erasmo Smith RBC 4.44 106/ul Normal 4.20-5.40 [facility] Comment on above: Performed By: #### B REGIONAL MARKETING MANAGER #### [facility] [address] [place] [address] Dr. Erasmo Smiht WBC 9.2 103/ul Normal 4.0-11.0 [facility] Comment on above: Performed By: #### B REGIONAL MARKETING MANAGER #### [facility] [address], [place] [address] CHEST WO CONon [...] by: PAULA DELGADO Date: 2022-05-27 15:27 Normal [facility] HEMOGLOBINon 04-20-2022 Hemoglobin (Bld) [Mass/Vol] 10.6 g/dL Critically low 12.0-16.0 [facility] Comment on above: Performed By: #### H GB ####[facility] [address] [id number]. Erasmo Smith CULTURE SPUTUMon 04-02-2022 CULTURE SPUTUM Isolate 1 Pseudomonas aeruginosa Light growth of ORGANISM 1 Pseudomonas aeruginosa ANTIBIOTIC M.I.C RX STATUS Piperacillin/Tazobac saez 8 S F Ceftazidime 2 S F Imipenem 1 S F Amikacin <=2 S F Gentamicin <=1 S F Tobramycin <=1 S F Ciprofloxacin <=0.25 S F Levofloxacin 0.25 S F Normal [facility] Comment on above: Performed By: #### S PUTCX ####[facility] [address] [address]Dr. Erasmo Smith CYTOLOGYon 03-30-2022 SENT TO REF LAB 03/31/22 Normal [facility] Comment on above: Performed By: #### C YTO #### [facility] [address] [place] [address] Dr. Erasmo Smith SPUTUM GRAM STAINon 03-30-20 COMMENTS Normal [facility] Comment on above: Performed By: #### B REGIONAL MARKETING MANAGER #### [facility] [address] [address] [address] Erasmo Smith DIPHTHEROIDS [facility] Comment on above: Performed By: #### B REGIONAL MARKETING MANAGER #### [facility] [address] [address] [address] Erasmo Smith EPITHELIALS <25 [facility] Comment on above: Performed By: #### B REGIONAL MARKETING MANAGER #### [facility] [address] [place] [address] Dr. Erasmo Smith FUNGAL ELEMENTS Normal [facility] Comment on above: Performed By: #### B REGIONAL MARKETING MANAGER #### [facility] [address] [address] [address] Erasmo Smith GRAM NEG BACILLI FEW [facility] Comment on above: Performed By: #### B REGIONAL MARKETING MANAGER #### [facility] [address] [place] [address] Dr. Erasmo CINTRON NEG DIPPLOCOCCI [facility] Comment on above: Performed By: #### B REGIONAL MARKETING MANAGER #### [facility] [address] [place] [address] Dr. Erasmo Smith GRAM POS BACILLI [facility] Comment on above: Performed By: #### B REGIONAL MARKETING MANAGER #### [facility] [address] [address] [address] Erasmo Smith GRAM POSITIVE COCCI MANY Normal [facility] Comment on above: Performed By: #### B REGIONAL MARKETING MANAGER #### [facility] [address] [place] [address] Dr. Erasmo Smith WBC (Bld) [#/Vol] 10*3/uL Normal [facility] Comment on above: Performed By: #### B REGIONAL MARKETING MANAGER #### [facility] [address] [address] [address] Erasmo Smith SPUTUM CULTUREon 03-01-2022 Epithelial cells LM Ql (Urine sed) Few Normal [facility] Comment on above: Performed By: #### C XSPTUM ####[facility] [address] [address]Dr. Erasmo Smith Gram Stain Evaluation Comment Normal [facility] Comment on above: Result Comment: This specimen is of good quality and is acceptable for routine bacterial culture. Performed By: #### C XSPTUM ####[facility] [address] [place] [address]DrMeena Smith Lower Respiratory Culture Final report Normal [facility] Comment on above: Performed By: #### C XSPTUM ####[facility] [address] [place] [address]DrMeena Smith Result 1 Comment Normal [facility] Comment on above: Result Comment: Few gram positive cocci Performed By: #### C XSPTUM ####[facility] [address] [place], [place] [address]Dr. Erasmo Smith Result Comment: Rout ine respiratory adria Result 2 Normal [facility] Comment on above: Performed By: #### C XSPTUM ####[facility] [address] [address]Dr. Erasmo Smith Result 3 Normal [facility] Comment on above: Performed By: #### C XSPTUM ####[facility] [address] [address]Dr. Erasmo Smith Result 4 Normal [facility] Comment on above: Performed By: #### C XSPTUM ####[facility] [address] [place] [address]DrMeena Smith White Blood Cells Few Normal [facility] Comment on above: Performed By: #### C XSPTUM ####[facility] [address] [place], [place] [address]DrMeena Smith BNPon 02-24-2022 Natriuretic peptide B (Bld) [Mass/Vol] 319.0 pg/mL Normal <=900.0 [facility] Comment on above: Performed By: #### B REGIONAL MARKETING MANAGER #### [facility] [address] [place] [address] Dr. Erasmo Smith CBC AUTO DIFFon 02-24-2022 BASO # 0.1 103/ul Normal 0.0-0.1 [facility] Comment on above: Performed By: #### C MREP #### [facility] [address] [place] [address] Dr. Erasmo Smith Basophils/100 WBC (Bld) 0.5 % Normal 0.2-2.0 [facility] Comment on above: Performed By: #### C MREP #### [facility] [address] [place] [address] Dr. Erasmo Smith EO # 0.3 103/ul Normal 0.0-0.7 [facility] Comment on above: Performed By: #### C MREP #### [facility] [address] [place] [address] Dr. Erasmo Smith Eosinophils/100 WBC (Bld) 3.1 % Normal 0.9-7.0 [facility] Comment on above: Performed By: #### C MREP #### [facility] [address] [place] [address] Dr. Erasmo Smith Erythrocyte distribution width (RBC) [Ratio] 15.1 % Critically high 11.0-15.0 [facility] Comment on above: Performed By: #### C MREP #### [facility] [address] [place] [address] Dr. Erasmo Smith Hematocrit (Bld) [Volume fraction] 33.9 % Critically low 36.0-48.0 [facility] Comment on above: Performed By: #### C MREP #### [facility] [address] [place] [address] Dr. Erasmo Smith Hemoglobin (Bld) [Mass/Vol] 10.7 g/dL Critically low 12.0-16.0 [facility] Comment on above: Performed By: #### C MREP #### [facility] [address] [place] [address] Dr. Erasmo Smith IG # 0.03 10e3/ul Normal 0.00-0.03 [facility] Comment on above: Performed By: #### C MREP #### [facility] [address] [place] [address] Dr. Erasmo Smith IG % 0.3 % Normal 0.0-0.5 [facility] Comment on above: Performed By: #### C MREP #### [facility] [address] [place] [address] Dr. Erasmo Smith LYMPH # 2.8 103/ul Normal 1.2-3.8 [facility] Comment on above: Performed By: #### C MREP #### [facility] [address] [place] [address] Dr. Erasmo Smith Lymphocytes/100 WBC (Bld) 30.6 % Normal 20.5-60.0 [facility] Comment on above: Performed By: #### C MREP #### [facility] [address] [place] [address] Dr. Erasmo Smith MANUAL DIFF REQ NO Normal [facility] Comment on above: Performed By: #### C MREP #### [facility] [address] [place] [address] Dr. Erasmo Smith MCH (RBC) [Entitic mass] 26.9 pg Normal 26.7-34.0 [facility] Comment on above: Performed By: #### C MREP #### [facility] [address] [place] [address] Dr. Erasmo Smith MCHC (RBC) [Mass/Vol] 31.6 g/dL Normal 29.9-35.2 [facility] Comment on above: Performed By: #### C MREP #### [facility] [address] [place] [address] Dr. Erasmo Smith MCV (RBC) [Entitic vol] 85.2 fL Normal 81.0-99.0 [facility] Comment on above: Performed By: #### C MREP #### [facility] [address] [place] [address] Dr. Erasmo Smith MONO # 0.7 103/ul Normal 0.3-0.8 [facility] Comment on above: Performed By: #### C MREP #### [facility] [address] [place] [address] Dr. Erasmo Smith Monocytes/100 WBC (Bld) 7.9 % Normal 1.7-12.0 [facility] Comment on above: Performed By: #### C MREP #### [facility] [address] [place] [address] Dr. Erasmo Smith NEUT # 5.3 103/ul Normal 1.4-6.5 [facility] Comment on above: Performed By: #### C MREP #### [facility] [address] [place] [address] Dr. Erasmo Smith Neutrophils/100 WBC (Bld) 57.6 % Normal 43.0-75.0 [facility] Comment on above: Performed By: #### C MREP #### [facility] [address] [place] [address] Dr. Erasmo Smith Platelet mean volume (Bld) [Entitic vol] 9.0 fL Critically low 9.5-13.5 [facility] Comment on above: Performed By: #### C MREP #### [facility] [address] [place] [address] Dr. Erasmo Smith PLT 249 103/ul Normal 150-450 [facility] Comment on above: Performed By: #### C MREP #### [facility] [address] [place] [address] Dr. Erasmo Smith RBC 3.98 106/ul Critically low 4.20-5.40 [facility] Comment on above: Performed By: #### C MREP #### [facility] [address] [place] [address] Dr. Erasmo Smith WBC 9.1 103/ul Normal 4.0-11.0 [facility] Comment on above: Performed By: #### C MREP #### [facility] [address] [place] [address] Dr. Erasmo Smith CTA CHEST WO W [...] by: PAULA DELGADO Date: 2022-02-24 18:24 Normal [facility] D-DIMERon 02-24-2022 D-DIMER 1.36 mg/L FEU Critically high <=0.59 [facility] Comment on above: Performed By: #### D DIM #### [facility] [address] [place] [address] Dr. Erasmo Smith D-DIMER COMMENTS SEE BELOW Normal [facility] Comment on above: Result Comment: Incr [...] hospitalization. Performed By: #### D DIM #### [facility] [address] [address] [address] Erasmo Smith PROF 14(COMP METB)on 022 Albumin [Mass/Vol] 3.6 g/dL Normal 3.4-5.0 [facility] Comment on above: Performed By: #### C MREP #### [facility] [address] [place] [address] Dr. Erasmo Smith Albumin/Globulin [Mass ratio] 0.8 {ratio} Normal [facility] Comment on above: Performed By: #### C MREP #### [facility] [address] [place] [address] Dr. Erasmo Smith ALP [Catalytic activity/Vol] 95 U/L Normal 46-116 [facility] Comment on above: Performed By: #### C MREP #### [facility] [address] [place] [address] Dr. Erasmo Smith ALT [Catalytic activity/Vol] 45 U/L Normal 14-59 [facility] Comment on above: Performed By: #### C MREP #### [facility] [address] [place] [address] Dr. Erasmo Smith Anion gap [Moles/Vol] 15.9 mmol/L Normal [facility] Comment on above: Performed By: #### C MREP #### [facility] [address] [place] [address] Dr. Erasmo Smith AST [Catalytic activity/Vol] 33 U/L Normal 15-37 [facility] Comment on above: Performed By: #### C MREP #### [facility] [address] [place] [address] Dr. Erasmo Smith Bilirubin [Mass/Vol] 0.5 mg/dL Normal 0.2-1.0 [facility] Comment on above: Performed By: #### C MREP #### [facility] [address] [place] [address] Dr. Erasmo Smith Calcium [Mass/Vol] 9.1 mg/dL Normal 8.5-10.1 [facility] Comment on above: Performed By: #### C MREP #### [facility] [address] [address] [address] Erasmo Smith Chloride [Moles/Vol] 103 mmol/L Normal 98-107 [facility] Comment on above: Performed By: #### C MREP #### [facility] [address] [address] [address] Erasmo Smith CO2 [Moles/Vol] 25.1 mmol/L Normal 21.0-32.0 [facility] Comment on above: Performed By: #### C MREP #### [facility] [address] [place] [address] Dr. Erasmo Smith Creatinine [Mass/Vol] 0.77 mg/dL Normal 0.55-1.02 [facility] Comment on above: Performed By: #### C MREP #### [facility] [address] [place] [address] Dr. Erasmo Smith EGFR-AF [place]ORE[place] >60 Normal >=60 [facility] Comment on above: Performed By: #### C MREP #### [facility] [address] [place] [address] Dr. Erasmo Smith EGFR-NON AF [place] >60 Normal >=60 [facility] Comment on above: Performed By: #### C MREP #### [facility] [address] [place] [address] Dr. Erasmo Smith Globulin (S) [Mass/Vol] 4.3 g/dL Normal [facility] Comment on above: Performed By: #### C MREP #### [facility] [address] [place] [address] Dr. Erasmo Smith Glucose [Mass/Vol] 92 mg/dL Normal 74-106 [facility] Comment on above: Performed By: #### C MREP #### [facility] [address] [place] [address] Dr. Erasmo Smith Potassium [Moles/Vol] 4.0 mmol/L Normal 3.5-5.1 [facility] Comment on above: Performed By: #### C MREP #### [facility] [address] [address] [address] Erasmo Smith Protein [Mass/Vol] 7.9 g/dL Normal 6.4-8.2 [facility] Comment on above: Performed By: #### C MREP #### [facility] [address] [address] [address] Erasmo Smith Sodium [Moles/Vol] 140 mmol/L Normal 136-145 [facility] Comment on above: Performed By: #### C MREP #### [facility] [address] [address] [address] Erasmo Smith Urea nitrogen [Mass/Vol] 17.0 mg/dL Normal 7.0-18.0 [facility] Comment on above: Performed By: #### C MREP #### [facility] [address] [address] [address] Erasmo Smith Urea nitrogen/Creatinine [Mass ratio] 22.1 mg/mg Normal [facility] Comment on above: Performed By: #### C MREP #### [facility] [address] [address] [address] Erasmo Smith PROTIMEon 02-24-2022 INR Coag (PPP) [Relative time] 2.28 {INR} Normal [facility] Comment on above: Performed By: #### P T, PTT ####[facility] [id number] [address]Dr. Erasmo Smith INR GUIDELINES SEE BELOW Normal [facility] Comment on above: Result Comment: ABNER RED INR: 2.0 - 3.0 CONDITIONS NOT LISTED BELOW 2.5 - 3.5 FOR PROSTHETIC HEART VALVE REPLACEMENT 2.5 - 3.5 RECURRENT THROMBOSIS Performed By: #### P T, PTT ####[facility] [id number] [address]Dr. Erasmo Smith PT Coag (PPP) [Time] 23.3 s Critically high 9.0-11.6 [facility] Comment on above: Performed By: #### P T, PTT ####[facility] [id number] [id number] Erasmo Smith PTTon 02-24-2022 aPTT Coag (Bld) [Time] 34.7 s Normal 22.3-36.2 Th e [facility] Comment on above: Performed By: #### P T, PTT ####[facility] [id number] [place], [place] [address]JlMeena Smith TROPONIN, HIGH SENSITIVITYon 02-24-2022 HSTROP 6.6 pg/mL Normal 4.0-51.3 [facility] Comment on above: Result Comment: CUT- OFF POINTS HAVE BEEN ESTABLISHED BASED ON THE FOURTH UNIVERSAL DEFINITIONS OF MYOCARDIAL INFARCTION. THE UPPER REFERENCE LIMIT (URL) OF TROPONIN, DEFINED THE 99TH PERCENTILE OF cTnI DISTRIBUTION IN A REFERENCE POPULATION, HAS BEEN CONFIRMED THE DECISION THRESHOLD FOR NC DIAGNOSIS. Performed By: #### C MREP #### [facility] [address] [place], [place] [address] Dr. Erasmo Smith PROTHROMBIN TIMEon 2 ANTICOAGULANT COUMADIN Normal [facility] INR Coag (PPP) [Relative time] 1.2 {INR} High 0.86-1.16 [facility] Comment on above: Result Comment: INR Theraputic Range: 2.0-3.5 Performed at [address] [address] PT Coag (PPP) [Time] 12.7 s Normal 9.3-12.7 [facility] Social History Date Type Detail Facility Start: 09-02-2023 Alcohol intake Not Asked [facility] Start: 08-30-2023 End: 09-06-2023 Sex Assigned At [facility] Start: 08-30-2023 End: 09-06-2023 History of Social function [facility] Start: 08-18-2023 End: 03-02-2024 Tobacco smoking status NHIS Ex-smoker [facility] Start: 08-18-2023 Alcohol Comment (Audit-C) : Negative [facility] Start: 1945 Sex Assigned At Female [facility] Start: 1945 Sex Assigned At Not on file [facility] History of tobacco use Current smoker [facility] History of tobacco use Cigarette Smoker [facility] Within the last year , have you been afraid of your partner or ex-partner? No [facility] How often do you att end adventist or sabianism services? Patient refused [facility] Do you belong to any clubs or organizations such as adventist groups, unions, fraternal or athletic groups, or [...] Clinician Facility 03-02-2024 11:51-0400 Blood Pressure Location [facility] [place] 03-02-2024 11:51-0400 Diastolic blood pressure 75 mm[Hg] [facility] 03-02-2024 11:51-0400 Heart rate 71 /min [facility] 03-02-2024 11:51-0400 Respiratory rate 16 /min [employer] [facility] 03-02-2024 11:51-0400 Systolic blood pressure 118 mm[Hg] [facility] 10-07-2021 16:00-0500 Body height 146.69 cm Hong Nevarez Other [employer] Other 10-07-2021 16:00-0500 Body mass index (BMI) [Ratio] 51.01 kg/m2 Hong Nevarez Other [employer] Other 10-07-2021 16:00-0500 Body weight 109.77 kg Hong Nevarez Other [employer] Other 08-26-2021 15:15-0500 Body height 146.69 cm Hong Nevarez Other [employer] Other 08-26-2021 15:15-0500 Body mass index (BMI) [Ratio] 51.07 kg/m2 Hong Nevarez Other [employer] Other 08-26-2021 15:15-0500 Body weight 109.91 kg Hong Nevarez Other [employer] Other Functional Status Date Assessment Result Facility 03-02-2024 Functional Status N/A [facility] [place] Clinical Notes 08-26-2021 to 03-02-2024 Note Date & Type Note Facility 03-02-2024 Note Chief Complaint consultation for anemia HPI Staff 78 year old female presents on consultation from [facility] for anemia. Labs completed yesterday with [...] PSVT, spinal stenosis, cervical radiculopathy; referred from [facility] for anemia, low iron, and positive [...] (paroxysmal supraventricular t (more content not included)... [facility] [place] [facility] Comment on above: Result Comment: Elec [...] All other systems reviewed and are negative. [facility] 01-17-2024 Note Cardiovascular Medic [facility] SUBJECTIVE Chief Complaint Patient presents with Atrial Fibrillation Breann Starks is a 78 y.o. female here for follow-up. HPI PMHx: A-fib, atrial tachycardia s/p ablation 2005, sick sinus syndrome s/p PPM 10/2020 dual-chamber [employer], COPD, mild CAD s/p cardiac cath 2010, SHAWANDA noncompliant with mask, and obesity. She has been doing well since last seen. No significant changes. Denies c/o CP, dyspnea, orthopnea, PND, LE edema, dizziness/LH, palpitations, syncope. Patient Active Problem List Diagnosis Disorder of bursae of shoulder region Chronic obstructive lung disease (CMS/HCC) Atherosclerosis of [place] coronary artery of [place] heart without angina pectoris Diaphragmatic hernia Edema [...] Final Monocytes Absolu (more content not included)... [facility] 07-05-2023 Note [facility] Electrophysiology Consult Note Reason [...] sick sinus syndrome s/p PPM 10/2020 dual-chamber [employer], COPD, mild CAD s/p cardiac cath [...] could not afford DOAC. Patient underwent dual-chamber [employer] pacemaker placement on 10/13/2020. On subsequent [...] both knees Hypocalcemi (more content not included)... [facility] 03-01-2023 Note [place] Electrophysiology Consult Note Reason for visit: 6-month [...] sick sinus syndrome s/p PPM 10/2020 dual-chamber [employer], COPD, mild CAD s/p cardiac cath [...] could not afford DOAC. Patient underwent dual-chamber [employer] pacemaker placement on 10/13/2020. On subsequent [...] KNEE ARTHROPLASTY Bi (more content not included)... [facility] 10-07-2021 Evaluation note Encounter Date Diagnosis Assessment Notes Sep, LOJA (nonalcoholic steatohepatitis ) (ICD-10 - K75.81) OBTAIN FIBROSURE RESULTS FROM [facility] REASSURANCE ON RESULTS PT ENCOURAGED WEIGHT LOSS RTO ONE YEAR WITH LABS ANNUALLY Sep, Unspecified cirrhosis of liver (ICD-10 - K74.60) [employer] Other 12-15-2021 Evaluation note* Encounter Date Diagnosis Assessment Notes Treatment Notes Treatment Clinical Notes Aug, Nonalcoholic steatohepatitis (LOJA) (ICD-10 - K75.81) RTO 6-8 WEEKS Aug, Unspecified cirrhosi s of liver (ICD-10 - K74.60) Aug, Morbid obesity (ICD- 10 - E66.01) [employer] Other Evaluation + Plan note No data available for this section [facility] [place] Evaluation noteNo assessment information available [facility] Work Phone: History general Narrative - Reported* [...] Surgical History pacemaker Hospitalization History see above [employer] Other Hospital Discharge instructions No data available for this section [facility] [place] Progress note No data available for this section [facility] [place] Summary Purpose Family History No Family History [...] and content) DATE CREATED AUTHOR 10/23/2021 [facility] DATE CREATED AUTHOR AUTHOR'S ORGANIZ ATION 01/22/2022 [facility] DATE CREATED AUTHOR AUTHOR'S ORGANIZ ATION 02/18/2023 [facility] DATE CREATED AUTHOR AUTHOR'S ORGANIZ ATION 11/27/2023 [facility] DATE CREATED AUTHOR AUTHOR'S ORGANIZ ATION 01/17/[address] [facility] DATE CREATED AUTHOR AUTHOR'S ORGANIZ ATION 01/28/2024 [facility] DATE CREATED AUTHOR AUTHOR'S ORGANIZ ATION 02/27/2024 [facility] [place] [facility] EPIC DATE CREATED AUTHOR AUTHOR'S ORGANIZ ATION 03/05/2024 [facility] REASON FOR VISIT (unrecogniz ed section and [...] October 11, 2023 End: October 11, 2023 [employer] Work[employer] Relationship Specialty Start Date End Date Shaikh [...] BE BASED ON THE PRIMARY CLINICAL RECORDS. [employer] provides no warranty or guarantee of the accuracy or completeness of information in this document.
[2024-03-07 06:20] VITALS: BP 133/63; PULSE 72; TEMP 36.8; O2SAT 97; BMI 47.9
[2024-03-07 06:20] LABS: Basophils Absolute Auto 0.1 10^3/uL (0.0-0.1); Basophils Percent Auto 0.6 % (0.2-2.0); Eosinophils Absolute Auto 0.4 10^3/uL (0.0-0.7); Eosinophils Percent Auto 3.9 % (0.9-7.0); Hemoglobin 8.4 g/dL (12.0-16.0); Immature Granulocytes Abs Auto 0.02 10^3/uL (0.00-0.03); Immature Granulocytes Pct Auto 0.2 % (0.0-0.5); Lymphocytes Absolute Auto 1.9 10^3/uL (1.2-3.8); Lymphocytes Percent Auto 21.5 % (20.5-60.0); Mean Corpuscular Hemoglobin 21.4 pg (26.7-34.0); Mean Platelet Volume 8.4 fL (9.5-13.5); Monocytes Absolute Auto 0.7 10^3/uL (0.3-0.8); Monocytes Percent Auto 7.9 % (1.7-12.0); Neutrophils Percent Auto 65.9 % (43.0-75.0); Platelet Count 451 10^3/uL (150-450); Red Blood Count 3.92 10^6/uL (4.20-5.40); Red Cell Distribution Width 18.9 % (11.0-15.0)
[2024-03-07] MEDS: LACTATED RINGER'S SOLUTION 1,000 ML 50 ML IV (07:07)
[2024-03-07 08:09] VITALS: BP 115/50; PULSE 67; TEMP 36.3; O2SAT 99
[2024-03-07 08:24] VITALS: BP 109/62; PULSE 64; O2SAT 97
[2024-03-07 08:39] VITALS: BP 119/56; PULSE 62; O2SAT 97
== END 2024-03-07 08:39 | disposition home or self-care (01) ==
PROVIDERS: PCP Internal Medicine; Visit Provider Surgery
PROC: (CPT 43235; principal; 2024-03-07 07:15)
DX: R19.5 Other fecal abnormalities (principal); D50.9 Iron deficiency anemia, unspecified; K21.9 Gastro-esophageal reflux disease without esophagitis; K57.30 Diverticulosis of large intestine without perforation or abscess without bleeding; K58.9 Irritable bowel syndrome, unspecified; E66.01 Morbid (severe) obesity due to excess calories; Z79.01 Long term (current) use of anticoagulants; Z68.43 Body mass index [BMI] 50.0-59.9, adult; I48.91 Unspecified atrial fibrillation; I50.9 Heart failure, unspecified; J44.9 Chronic obstructive pulmonary disease, unspecified; I25.10 Atherosclerotic heart disease of native coronary artery without angina pectoris; M19.90 Unspecified osteoarthritis, unspecified site; M48.00 Spinal stenosis, site unspecified; M54.12 Radiculopathy, cervical region; K44.9 Diaphragmatic hernia without obstruction or gangrene; Z90.710 Acquired absence of both cervix and uterus; I11.0 Hypertensive heart disease with heart failure; Z87.11 Personal history of peptic ulcer disease; Z87.891 Personal history of nicotine dependence; Z95.0 Presence of cardiac pacemaker
CPT/HCPCS: 43235; 45330; 36415; 85025; J2704

== ENCOUNTER 2024-03-14 08:49 | Outpatient (OUT) | payer MEDICARE, SELFPAY ==
--- OUTSIDE RECORDS SUMMARY | 2024-03-14 08:55 | XMS_ITS | CCD ---
Author Organization [facility] Team Providers Care Electrical Inspector Name Role Phone ZANE MCGUIRE Admitting Unavailable YANCY MAHAN Referring Unavailable LUISANA FISHER Primary Care Unavailable ZANE MCGUIRE Attending Unavailable YANCY MAHAN Surgeon Unavailable MI Procedure Practitioner Unavailab Hong Adler Unavailable FISHER [...] LUISANA Herbert Consulting Unavailable FISHER ., DR LUIASNA Herbert Admitting Unavailable FISHER ., DR LUISANA [...] FISHER ., DR LUISANA Herbert Admitting Unavailable FISHRE ., DR LUISANA Herbert Primary [...] Admitting Unavailable RIVER ., KAYLEY Attending Unavailable CRYSTAL RIVER, DR HONG Morgan Consulting Unavailable FISHER ., DR LUISANA Herbert Primary Care Unavailable GRECHNY ., DANIELLE SHAIKH Consulting UnavailSALOME Mondragon Consulting Unavailable RIVER ., KAYLEY Consulting Unavailable JBARAVERONICA Consulting Unavailable SAMSA ., LUIZ Admitting Unavailable [...] Provider MD Janice Denis Primary Care Provider [phone] THANG Clement Attending Provider [phone] Cira CUBA [facility] Primary Care Provider [phone] Claire Clement Admitting Unavailable Claire Clement Attending [facility]available [facility], [facility] Primary Care Unavailable Kayley Reeder Admitting Unavailable Kayley Reeder Attending Unavailable [facility], [facility] Primary Care Unavailable Claire Clement Admitting Unavailable Claire Clement Attending Unavailable [facility], [facility] Primary Care Unavailable Giedraitis , Andrius Sainz Attending Unavailable Giedraitis , Andrius Vrenee Attending Unavailable Giedraitis , Andrius Vytjoselito Attending Unavailable Giedraitis , Andrius Vytjoselito Attending Unavailable YANCY MAHAN Referring Unavailable YANCY MAHAN Attending Unavailable YANCY MAHAN Referring Unavailable NICANOR CANNON Attending Unavailable Ortega ALEXANDER Attending Unavailable FAWWAD, Referring Unavailable Ortega ALEXANDER R Attending Unavailable FAWWAAlysa, Attending Unavailable FAWWAAlysa, SAHU Attending Unavailable FAWWAD, SAHU Attending Unavailable FAWWAD, Attending Unavailable FAWWAD, Attending Unavailable FAWWAAlysa, Attending Unavailable Allergies Allergy Classification Reported Allergen(s) Allergy Type Date of Onset Reaction(s) Facility NSAIDs (1 source) meloxicam; Translations: [Mobic] Drug Allergy [facility] Repository Unclassified (1 source) No Known Medication Allergies; Translations: [No Known Medication Allergies] Propensity to adverse reactions (disorder) [facility] Repository (1 source) novacaine; Translations: [novacaine] Propensity to adverse reactions (disorder) 2 [facility] Repository (2 sources) NSAIDs Propensity to adverse reactions HEART ISSUES [facility] Other (1 source) Adhesive agent Drug allergy (disorder) 4 [facility] Repository (1 source) NSAIDs Drug allergy (disorder) 4 [facility] Repository Medications Current Medications Medication Drug [...] mg oral tablet (4 sources) Antiarrhythmic Start: take 1 tablet by mouth every twelve [...] Status: Ordered take 1 tablet by dirk th every twenty-four hours Furosemide 20 MG 1 [...] oral tablet (2 sources) Aldosterone Antagonist Start: take 1 tablet by mouth once daily spironolactone 25 mg Tab 25 mg = 1 tab(s), Oral, Daily, Refills(s) 0 Start Date: 03/01/24 Status: [facility] take 1 [facility] sp[facility]one (Aldactone) 25 MG tablet Take 25 [...] Daily, # 90 tab(s), Refills(s) 0, Pharmacy: [facility]/pharmacy #[id number], 141, cm, 01/11/23 10:30:00 EDT, Height/Length Dosing, [...] (4 sources) Presence of cardiac pacemaker; Translations: [Sinus node dysfunction] Onset: 1 03-01-2024 Chronic Congestive heart failure; nonhypertensive (2 sources) Chronic diastolic (congestive) heart failure; Translations: [Congestive heart failure] Onset: 3 03-01-2024 Chronic Coronary atherosclerosis and other heart disease (3 sources) Atherosclerotic heart disease of [place] coronary artery without angina pectoris; Translations: [Coronary [...] Onset: 3 Episodic Other aftercare (1 source) snf (current) use of anticoagulants; 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 She would like to start her on lasix 40mg daily, with BMP in 1 week. She spoke on the phone to Dr. Mahan regarding her echo. Per Dr. Mahan, patient is ok to proceed with EGD/colonoscopy. Spoke with patient and made her aware. She said she had visit with Dr. Denis on 02/26 for swelling and he started her on lasix 40mg- with instructions to take 2 of them for the rest of the week and then go down to once daily. Bre then decided to have her take 40mg of lasix twice daily. Patient informed. New RX for lasix sent to her pharmacy. BMP order faxed to [facility]. Breann verbalized understanding. [facility] Consent for Procedure/Surger yon 03-05-2024 Consent for Procedure/Surgery [id number] #1.00TIFF [facility] Ambulatory Visit Summaryon 0 03-02-2024 Ambulatory Visit Summary BREANN STARKS :1945 Visit Date:03/02/2024 Ambulatory Visit Instructions Your Care Team Attending Physician - Ortega ALEXANDER MD Primary Care Physician - Barbara Dai Referring Physician - CIRA CUBA, [facility] This Is Your Medications List Contact prescribing [...] you for choosing us for your care. Normal [facility] ED Note-Physicianon 03-02-20 24 ED Note-Physician [id number]# 1.00TIFF [facility] Insurance Correspondenceon 0 03-02-2024 Insurance Correspondence [id number] 7#1.00TIFF [facility] Lab Reportson 03-02-2024 Lab Reports [id number] #1.00TIFF [facility] 36on 01-25-2024 36 Patient called stating ever since her device was adjusted last month she's had this weird feeling in her throat. I called Sony Asif from [employer] and he told me this feeling she's having should not be from her device. Patient informed. I suggested she see PCP for this. She verbalized understanding. Normal [facility] Office Visiton 01-17-2024 Follow-up visit [id number] Breann Starks 1945 F Date Provider Department Center 01/17/2024 NICANOR REGAN AMISH Lubin Family History Adopted: Yes Family history unknown: Yes Family Status - Relation Status Age at Mother Father Level of Service:29059 [place] OFFICE/OUTPATIENT ESTABLISHED MOD MDM 30 MIN Reason for Visit and Comments: Atrial Fibrillation [80] Normal [facility] XR lumbar spine 6V w bending on 11-16-2023 XR lumbar spine 6V w bending [facility] Main [address] [address] XRay Report Signed Patient: Breann Starks MR#: [id number] 171 : 1945 Acct:[id number] Age/Sex: 77 / F ADM Date: 11/16/23 Loc: XD Room: Type: [facility] CLI Attending Dr: Kayley Reeder CHAIN MAKER MACHINE-C Copies to: THAGN Calvert Ordering Provider: THANG Calvert Date of [...] Benton Jr., D.OMeena11/16/2023 4:37 PM Dictation Location: [place] [address] Transcribed By: [facility] 11/16/23 1637 Dictated By: Francisco J Benton Jr, DO 11/16/23 1636 Signed By: 11/16/23 1637 [facility] MR lumbar spine wo [facility] MR lumbar spine wo [facility] [place] [address] XRay Report Signed Patient: Breann Starks MR#: [id number] 171 : 1945 Acct:[id number] Age/Sex: 77 / F ADM Date: 10/11/23 Loc: MR Room: Type: [facility] CLI Attending Dr: Claire Clement NP-C Copies to: THANG Porter Ordering Provider: THANG Porter Date of Service: 10/11/23 MR/MR lumbar spine wo con: LUMBAR RADICULPATHY (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) XR/XR pre/post mri xray: LUMBAR RADICULPATHY CLINICAL [...] Eleanor Reece M.D.10/11/2023 4:10 PM Dictation Location: [place] [address] Transcribed By: [facility] 10/11/23 161 Dictated By: Eleanor Reece MD 10/11/23 1133 Signed By: 10/11/23 1610 [facility] Office Visiton 07-05-2023 Follow-up visit [id number] Breann Starks 1945 F Date Provider Department Center 07/05/2023 YANCY IVERSON Family History Adopted: Yes Family history unknown: Yes Family Status - Relation Status Age at Mother Father Level of Service:69973 [place] OFFICE/OUTPATIENT ESTABLISHED LOW MDM 20-29 MIN Normal [facility] XR LSPINE W_OBLS AND FLEX_EX Ton 01-31-2023 [...] by: PAULA DELGADO Date: 2023-01-31 11:[address] [facility] LIPID PROFILEon 12-16-2022 CHOL-HDL RATIO NORM SEE BELOW Normal [facility] Comment on above: Result Comment: 3.3 - 4.4 LOW RISK 4.4 - 7.1 AVERAGE RISK 7.1 - 11.0 MODERATE RISK >11.0 HIGH RISK Performed By: #### L IPID ####[facility] [address] [place] [address]Dr. Erasmo Smith Cholesterol [Mass/Vol] 105 mg/dL Normal <=200 [facility] Comment on above: Performed By: #### L IPID ####[facility] [address] [place] [address]Dr. Erasmo Smith Cholesterol in HDL [Mass/Vol] 48 mg/dL Normal 40-[address] [facility] Comment on above: Performed By: #### L IPID ####[facility] [address] [place] [address]Dr. Erasmo Smith Cholesterol in LDL [Mass/Vol] 48.2 mg/dL Normal [facility] Comment on above: Performed By: #### L IPID ####[facility] Molokegnnb[address] [place] [id number]. Erasmo Smith Cholesterol.total/Chol esterol in HDL [Mass ratio] 2.2 {ratio} Normal [facility] Comment on above: Performed By: #### L IPID ####[facility] Ezfrdq[address]lb[address] [place] [id number]. Erasmo Smith HDL NORMAL > or = 60 mg/dl - LOW CARDIOVASCULAR RISK <40 mg/dl - HIGH CARDIOVASCULAR RISK Normal [facility] Comment on above: Performed By: #### L IPID ####[facility] Fkbpismbeg[address] [place] [id number]. Erasmo Smith LDL CALC NORMAL SEE BELOW Normal [facility] Comment on above: Result Comment: <100 mg/dl OPTIMAL 100 - 129 mg/dl NEAR OR ABOVE OPTIMAL 130 - 159 mg/dl BORDERLINE HIGH 160 - 189 mg/dl HIGH >190 mg/dl VERY HIGH Performed By: #### L IPID ####[facility] [address] [place] [address]Dr. Erasmo Smith Triglyceride [Mass/Vol] 44 mg/dL Normal <=150 [facility] Comment on above: Performed By: #### L IPID ####[facility] [address]ft[address] [place] [id number]. Erasmo Smith VLDL CALC 8.8 mg/dL Normal [facility] Comment on above: Performed By: #### L IPID ####[facility] [address]pr[address] [place] [address]Dr. Erasmo Smith CULTURE BLOODon 12-04-2022 Microscopic examination [...] Trimethoprim/Sulfame thoxazole <=20 S F Normal [facility] Comment on above: Performed By: #### B LDCX1 ####[facility] [address] [place], [place] [address]Dr. Erasmo Smith BNPon 12-03-2022 Natriuretic peptide B (Bld) [Mass/Vol] 413.0 pg/mL Normal <=1,800.[address] [facility] Comment on above: Performed By: #### B CHAIN MAKER MACHINE #### [facility] [address] [place] [address] [address] Erasmo Smith CBC AUTO DIFFon 12-03-2022 BASO # 0.0 103/ul Normal 0.0-0.[address] [facility] Comment on above: Performed By: #### C BC ####[facility] [address] [place], [place] [address]DrMeena Smith Basophils/100 WBC (Bld) 0.2 % Normal 0.2-2.[address] [facility] Comment on above: Performed By: #### C BC ####[facility] Fr[address] [place], [place] [address]DrMeena Smith EO # 0.4 103/ul Normal 0.0-0.[address] [facility] Comment on above: Performed By: #### C BC ####[facility] [address] [place], [place] [address]DrMeena Smith Eosinophils/100 WBC (Bld) 2.1 % Normal 0.9-7.0 [facility] Comment on above: Performed By: #### C BC ####[facility] [address] [place], [place] [address]DrMeena Smith Erythrocyte distribution width (RBC) [Ratio] 17.2 % Critically high 11.0-15.[address] [facility] Comment on above: Performed By: #### C BC ####[facility] [address] [place], [place] [address]DrMeena Smith Hematocrit (Bld) [Volume fraction] 29.2 % Critically low 36.0-48.[address] [facility] Comment on above: Performed By: #### C BC ####[facility] [address] [place] [id number]. Erasmo Smith Hemoglobin (Bld) [Mass/Vol] 9.5 g/dL Critically low 12.0-16.[address] [facility] Comment on above: Performed By: #### C BC ####[facility] [address] [place] [id number]. Erasmo Smith IG # 0.13 10e3/ul Critically high 0.00-0.03 [facility] Comment on above: Performed By: #### C BC ####[facility] [address] [place] [address]Dr. Erasmo Smith IG % 0.8 % Critically high 0.0-0.5 [facility] Comment on above: Performed By: #### C BC ####[facility] [address] [place] [address]Dr. Erasmo Smith LYMPH # 1.8 103/ul Normal 1.2-3.8 [facility] Comment on above: Performed By: #### C BC ####[facility] [address] [place] [address]Dr. Erasmo Smith Lymphocytes/100 WBC (Bld) 10.3 % Critically low 20.5-60.[address] [facility] Comment on above: Performed By: #### C BC ####[facility] [address] [place] [address]Dr. Erasmo Smith MANUAL DIFF REQ NO Normal [facility] Comment on above: Performed By: #### C BC ####[facility] [address] [place] [phone]. Erasmo Smith MCH (RBC) [Entitic mass] 25.7 pg Critically low 26.7-34.0 [facility] Comment on above: Performed By: #### C BC ####[facility] [address]dbrf[address] [place] [phone]. Erasmo Smith MCHC (RBC) [Mass/Vol] 32.5 g/dL Normal 29.9-35.2 [facility] Comment on above: Performed By: #### C BC ####[facility] [address] [place] [phone]. Erasmo Smith MCV (RBC) [Entitic vol] 79.1 fL Critically low 81.0-99.[address] [facility] Comment on above: Performed By: #### C BC ####[facility] [address] [place] [id number]. Erasmo Smith MONO # 1.5 103/ul Critically high 0.3-0.8 [facility] Comment on above: Performed By: #### C BC ####[facility] Qxifkw[address]sq57[address] [place] [id number]. Erasmo Smith Monocytes/100 WBC (Bld) 8.7 % Normal 1.7-12.[address] [facility] Comment on above: Performed By: #### C BC ####[facility] [address] [place], [place] [address]Dr. Erasmo Smith NEUT # 13.4 103/ul Critically high 1.4-6.5 [facility] Comment on above: Performed By: #### C BC ####[facility] [address] [place], [place] [address]Dr. Erasmo Smith Neutrophils/100 WBC (Bld) 77.9 % Critically high 43.0-75.0 [facility] Comment on above: Performed By: #### C BC ####[facility] [address] [place], [place] [phone]. Erasmo Smith Platelet mean volume (Bld) [Entitic vol] 9.3 fL Critically low 9.5-13.5 [facility] Comment on above: Performed By: #### C BC ####[facility] [address]yc[address] [place] [id number]. Erasmo Smith PLT 205 103/ul Normal 150-450 [facility] Comment on above: Performed By: #### C BC ####[facility] [address] [place] [id number]. Erasmo Luis RBC 3.69 106/ul Critically low 4.20-5.40 [facility] Comment on above: Performed By: #### C BC ####[facility] [address] [place], [place] [address]DmDr. Erasmo Smith WBC 17.2 103/ul Critically high 4.0-11.0 [facility] Comment on above: Performed By: #### C BC ####[facility] [address] [place], [place] [address]BzDr. Erasmo Smith MAGNESIUMon 12-03-2022 Magnesium [Mass/Vol] 1.9 mg/dL Normal 1.8-2.[address] [facility] Comment on above: Performed By: #### B CHAIN MAKER MACHINE #### [facility] [address] [place] [address] [address] Erasmo Smith PROF 14(COMP METB)on 023 Albumin [Mass/Vol] 2.6 g/dL Critically low 3.4-5.0 [facility] Comment on above: Performed By: #### B CHAIN MAKER MACHINE #### [facility] [address] [place] [address] Dr. Erasmo Smith Albumin/Globulin [Mass ratio] 0.6 {ratio} Normal [facility] Comment on above: Performed By: #### B CHAIN MAKER MACHINE #### [facility] [address] [place] [address] Dr. Erasmo Smith ALP [Catalytic activity/Vol] 123 U/L Critically high 46-[address] [facility] Comment on above: Performed By: #### B CHAIN MAKER MACHINE #### [facility] [address] [place] [address] [address] Erasmo Smith ALT [Catalytic activity/Vol] 28 U/L Normal 14-[address] [facility] Comment on above: Performed By: #### B CHAIN MAKER MACHINE #### [facility] [address] [place] [address] [address] Erasmo Smith Anion gap [Moles/Vol] 9.4 mmol/L Normal [facility] Comment on above: Performed By: #### B CHAIN MAKER MACHINE #### [facility] [address] [place] [address] Dr. Erasmo Smith AST [Catalytic activity/Vol] 21 U/L Normal 15-[address] [facility] Comment on above: Performed By: #### B CHAIN MAKER MACHINE #### [facility] [address] [place] [address] [address] Erasmo Smith Bilirubin [Mass/Vol] 0.3 mg/dL Normal 0.2-1.[address] [facility] Comment on above: Performed By: #### B CHAIN MAKER MACHINE #### [facility] [address] [place] [address] [address] Erasmo Smith Calcium [Mass/Vol] 8.3 mg/dL Critically low 8.5-10.1 [facility] Comment on above: Performed By: #### B CHAIN MAKER MACHINE #### [facility] [address] [place] [address] [address] Erasmo Smith Chloride [Moles/Vol] 105 mmol/L Normal 98-[address] [facility] Comment on above: Performed By: #### B CHAIN MAKER MACHINE #### [facility] [address] [place] [address] Dr. Erasmo Smith CO2 [Moles/Vol] 27.1 mmol/L Normal 21.0-32.0 [facility] Comment on above: Performed By: #### B CHAIN MAKER MACHINE #### [facility] [address] [place] [address] Dr. Erasmo Smith Creatinine [Mass/Vol] 0.55 mg/dL Normal 0.55-1.[address] [facility] Comment on above: Performed By: #### B CHAIN MAKER MACHINE #### [facility] [address] [place] [address] Dr. Erasmo Smith EGFR-AF BURKINAN >60 Normal >=60 [facility] Comment on above: Performed By: #### B CHAIN MAKER MACHINE #### [facility] [address] [place] [address] Dr. Erasmo Smith EGFR-NON AF BURKINAN >60 Normal >=[address] [facility] Comment on above: Performed By: #### B CHAIN MAKER MACHINE #### [facility] [address] [place] [address] Dr. Erasmo Smith Globulin (S) [Mass/Vol] 4.0 g/dL Normal [facility] Comment on above: Performed By: #### B CHAIN MAKER MACHINE #### [facility] [address] [place] [address] [address] Erasmo Smith Glucose [Mass/Vol] 132 mg/dL Critically high 74-[address] [facility] Comment on above: Performed By: #### B CHAIN MAKER MACHINE #### [facility] [address] [place] [address] [address] Erasmo Smith Potassium [Moles/Vol] 3.5 mmol/L Normal 3.5-5.[address] [facility] Comment on above: Performed By: #### B CHAIN MAKER MACHINE #### [facility] [address] [place] [address] [address] Erasmo Smith Protein [Mass/Vol] 6.6 g/dL Normal 6.4-8.2 [facility] Comment on above: Performed By: #### B CHAIN MAKER MACHINE #### [facility] [address] [place] [address] [address] Erasmo Smith Sodium [Moles/Vol] 138 mmol/L Normal 136-145 [facility] Comment on above: Performed By: #### B CHAIN MAKER MACHINE #### [facility] [address] [place] [address] [address] Erasmo Smith Urea nitrogen [Mass/Vol] 24.0 mg/dL Critically high 7.0-18.[address] [facility] Comment on above: Performed By: #### B CHAIN MAKER MACHINE #### [facility] [address] [place] [address] [address] Erasmo Smith Urea nitrogen/Creatinine [Mass ratio] 43.6 mg/mg Normal [facility] Comment on above: Performed By: #### B CHAIN MAKER MACHINE #### [facility] [address] [place] [address] [address] Erasmo Smith PROTIMEon 12-03-2022 INR Coag (PPP) [Relative time] 4.41 {INR} Critically high [facility] Comment on above: Performed By: #### C MREP #### [facility] [address] [place] [address] Dr. Erasmo Smith INR GUIDELINES SEE BELOW Normal [facility] Comment on above: Result Comment: ABNER RED INR: 2.0 - 3.0 CONDITIONS NOT LISTED BELOW 2.5 - 3.5 FOR PROSTHETIC HEART VALVE REPLACEMENT 2.5 - 3.5 RECURRENT THROMBOSIS Performed By: #### C MREP #### [facility] [address] [place] [address] [address] Erasmo Smith PT Coag (PPP) [Time] 43.0 s Critically high 9.0-11.6 [facility] Comment on above: Performed By: #### C MREP #### [facility] [address] [place] [address] [address] Erasmo Smith BLOOD CULTURE ID PANELon A. baumannii Not detected Normal NOT DETECTED [facility] Comment on above: Performed By: #### B CID2 ####[facility] [address] [place] [address]Dr. Erasmo Smith Bacteriodes fragilis Not detected Normal NOT DETECTED [facility] Comment on above: Performed By: #### B CID2 ####[facility] [address] [place] [address]Dr. Erasmo Smith BCID CONTROLS PASSED Normal [facility] Comment on above: Performed By: #### B CID2 ####[facility] [address] [place] [address]Dr. Erasmo Smith BCIDBTHD BLOOD CULTURE BOTTLE INFORMATION Normal [facility] Comment on above: Performed By: #### B CID2 ####[facility] [address] [place] [address]Dr. Erasmo Smith BCIDHD1 ANTIMICROBIAL RESISTANCE GENES Normal [facility] Comment on above: Performed By: #### B CID2 ####[facility] [address] [place] [address]Dr. Erasmo Smith BCIDHD2 SEE BELOW Normal [facility] Comment on above: Result Comment: Note : Antimicrobial resitance can occur via multiple mechanisms. A Not Detected result for the [employer] antomicrobial resistance gene assays does not indicate antimicrobial susceptibility. Subculturing is required for species identification and susceptibility testing of isolates. Performed By: #### B CID2 ####[facility] [address] [place] [address]Dr. Erasmo Smith BCIDHD3 Positive Normal [facility] Comment on above: Performed By: #### B CID2 ####[facility] [address] [place] [address]Dr. Erasmo Smith BCIDHD4 Negative Normal [facility] Comment on above: Performed By: #### B CID2 ####[facility] [address] [place] [address]Dr. Erasmo Smith BCIDHD5 YEAST Normal [facility] Comment on above: Performed By: #### B CID2 ####[facility] Center [address] [place] [address]Dr. Erasmo Smith Bottle Set: Set 1 Normal [facility] Comment on above: Performed By: #### B CID2 ####[facility] Ezoyejqmgy22[address] [place], [place] [address]Dr. Erasmo Smith Bottle: Anaerobic Normal [facility] Comment on above: Performed By: #### B CID2 ####[facility] Deporehmzz42[address] [place], [place] [address]Dr. Erasmo Smith C. neoformans/gattii Not detected Normal NOT DETECTED [facility] Comment on above: Performed By: #### B CID2 ####[facility] Toaflrmmsh807[address] [place], [place] [address]Dr. Erasmo [facility] Naye albicans Not detected Normal NOT DETECTED [facility] Comment on above: Performed By: #### B CID2 ####[facility] Iltqdxupjy117[address] [place], [place] [address]Dr. Erasmo Smith Naye auris Not detected Normal NOT DETECTED [facility] Comment on above: Performed By: #### B CID2 ####[facility] Wonqpbvdaf6139[address] [place], [place] [address]Dr. Erasmo [facility] Naye glabrata Not detected Normal NOT DETECTED [facility] Comment on above: Performed By: #### B CID2 ####[facility] Uryyolvcrb879[address] [place], [place] [address]Dr. Erasmo Smith Naye Krusei Not detected Normal NOT DETECTED The [facility] Comment on above: Performed By: #### B CID2 ####[facility] Amruumxcxm842[address] [place], [place] [address]Dr. Erasmo Smith Naye Parapsilosis Not detected Normal NOT DETECTED [facility] Comment on above: Performed By: #### B CID2 ####[facility] Tquzivjaxy864[address] [place], [place] [address]Dr. Erasmo Smith Naye Tropicalis Not detected Normal NOT DETECTED [facility] Comment on above: Performed By: #### B CID2 ####[facility] Qelfrodbyp618947 [address] [place], [place] [address]Dr. Erasmo Smith CTX-M Resistant Gene Not Applicable Normal NOT DETECTE D [facility] Comment on above: Performed By: #### B CID2 ####[facility] Kpsirszufk408247 [address] [place], [place] [address]Dr. Erasmo Smith E. Cloacae complex Not detected Normal NOT DETECTED [facility] Comment on above: Performed By: #### B CID2 ####[facility] Ebpfpwweya486047 [address] [place], [place] [address]Dr. Erasmo Smith E. faecalis Not detected Normal NOT DETECTED The [facility] Comment on above: Performed By: #### B CID2 ####[facility] Lomkrynzzy2437[address] [place], [place] [address]Dr. Erasmo Smith E. faecium Not detected Normal NOT DETECTED The [facility] Comment on above: Performed By: #### B CID2 ####[facility] Xpbdlasuja666[address] [place], [place] [address]Dr. Erasmo Smith Enterobacteriaceae Detected Critically abnormal NOT DETECTED [facility] Comment on above: Performed By: #### B CID2 ####[facility] Zevvbfzjoo9647[address] [place], [place] [address]Dr. Erasmo Smith Escherichia coli Detected Critically abnormal NOT DETECTED [facility] Comment on above: Performed By: #### B CID2 ####[facility] Sclrgyxuyv331347 [address] [place], [place] [address]Dr. Erasmo Smith H. influenzae Not detected Normal NOT DETECTED [facility] Comment on above: Performed By: #### B CID2 ####[facility] Gclhioehql547547 [address] [place], [place] [address]Dr. Erasmo Smith IMP Resistant Gene Not Applicable Normal NOT DETECTED [facility] Comment on above: Performed By: #### B CID2 ####[facility] Mzobmgpqgx736047 [address] [place], [place] [address]Dr. Erasmo Smith K. oxytoca Not detected Normal NOT DETECTED The [facility] Comment on above: Performed By: #### B CID2 ####[facility] Laqhgjdqgg976947 [address] [place], [place] [address]Dr. Erasmo Smith K. pneumoniae Not detected Normal NOT DETECTED [facility] Comment on above: Performed By: #### B CID2 ####[facility] Gnxyuutrpy919547 [address] [place], [place] [address]Dr. Erasmo Smith Klebsiella aerogenes Not detected Normal NOT DETECTED [facility] Comment on above: Performed By: #### B CID2 ####[facility] Emoxdutzbn510647 [address] [place], [place] [address]Dr. Erasmo Smith KPC Resistant Gene Not detected Normal NOT DETECTED [facility] Comment on above: Performed By: #### B CID2 ####[facility] Fifhfbpakb813747 [address] [place], [place] [address]Dr. Erasmo Smith List. monocytogenes Not detected Normal NOT DETECTED [facility] Comment on above: Performed By: #### B CID2 ####[facility] Roqdmzyvmr026747 [address] [place], [place] [address]Dr. Erasmo Smith Mcr-1 Resistant Gene Not Applicable Normal NOT DETECTE D [facility] Comment on above: Performed By: #### B CID2 ####[facility] Jgltruupes913047 [address] [place], [place] [address]Dr. Erasmo Smith mecA/C Not Applicable Normal NOT DETECTED [facility] Comment on above: Performed By: #### B CID2 ####[facility] Gtcqaovura603347 [address] [place], [place] [address]Dr. Erasmo Smith mecA/C MREJ Not Applicable Normal NOT DETECTED [facility] Comment on above: Performed By: #### B CID2 ####[facility] Qeratvcnhp602047 [address] [place], [place] [address]Dr. Erasmo Smith N. meningitidis Not detected Normal NOT DETECTED The [facility] Comment on above: Performed By: #### B CID2 ####[facility] Zkrxroydiw890247 [address] [place], [place] [address]Dr. Erasmo Smith NDM Resistant Gene Not Applicable Normal NOT DETECTED [facility] Comment on above: Performed By: #### B CID2 ####[facility] Yyjjanbpra241647 [address] [place], [place] [address]Dr. Erasmo Smith Oxa-48-like Not Applicable Normal NOT DETECTED [facility] Comment on above: Performed By: #### B CID2 ####[facility] Piftrsmdau270547 [address] [place], [place] [address]Dr. Erasmo Smith Proteus Not detected Normal NOT DETECTED [facility] Comment on above: Performed By: #### B CID2 ####[facility] Mklnfjpnhg358347 [address] [place], [place] [address]Dr. Erasmo Smith Pseud. aeruginosa Not detected Normal NOT DETECTED [facility] Comment on above: Performed By: #### B CID2 ####[facility] Vitntqscvo063347 [address] [place], [place] [address]Dr. Erasmo Smith S. maltophilia Not detected Normal NOT DETECTED [facility] Comment on above: Performed By: #### B CID2 ####[facility] Digafgiohq139647 [address] [place], [place] [address]Dr. Erasmo Smith Salmonella Not detected Normal NOT DETECTED [facility] Comment on above: Performed By: #### B CID2 ####[facility] Modiadtefj685847 [address] [place], [place] [address]Dr. Erasmo Smith Seratia marcescens Not detected Normal NOT DETECTED [facility] Comment on above: Performed By: #### B CID2 ####[facility] Npnfsluzhe593747 [address] [place], [place] [address]Dr. Erasmo Smith Site: l ac Normal [facility] Comment on above: Performed By: #### B CID2 ####[facility] Dubuuazikh473547 [address] [place], [place] [address]Dr. Erasmo Smith Staph. aureus Not detected Normal NOT DETECTED [facility] Comment on above: Performed By: #### B CID2 ####[facility] Kktyjmcivb807147 [address] [place], [place] [address]Dr. Erasmo Smith Staph. epidermidis Not detected Normal NOT DETECTED [facility] Comment on above: Performed By: #### B CID2 ####[facility] Fxyqfbnymn87364[address] [place], [place] [address]Dr. Erasmo Smith Staph. lugdunensis Not detected Normal NOT DETECTED [facility] Comment on above: Performed By: #### B CID2 ####[facility] Cuwffhouen336547 [address] [place], [place] [address]Dr. Erasmo Smith Staphylococcus Not detected Normal NOT DETECTED [facility] Comment on above: Performed By: #### B CID2 ####[facility] Pbgdlktmtq620747 [address] [place], [place] [address]Dr. Erasmo Smith Strep. agalactiae Not detected Normal NOT DETECTED [facility] Comment on above: Performed By: #### B CID2 ####[facility] Jdthyxytsx423247 [address] [place], [place] [address]Dr. Erasmo Smith Strep. pneumoniae Not detected Normal NOT DETECTED [facility] Comment on above: Performed By: #### B CID2 ####[facility] Ycoqbrixhc625947 [address] [place], [place] [address]Dr. Erasmo Smith Strep. pyogenes Not detected Normal NOT DETECTED [facility] Comment on above: Performed By: #### B CID2 ####[facility] Udqqibxshj450[address] [place], [place] [address]Dr. Erasmo Smith Streptococcus Not detected Normal NOT DETECTED [facility] Comment on above: Performed By: #### B CID2 ####[facility] Ccgbnjmvre603547 [address] [place], [place] [address]Dr. Erasmo Smith Fran/B Resist. Gene Not detected Normal NOT DETECTED [facility] Comment on above: Performed By: #### B CID2 ####[facility] Lmhtzslsbo3837[address] [place], [place] [address]Dr. Erasmo Smith VIM Resistant Gene Not Applicable Normal NOT DETECTED [facility] Comment on above: Performed By: #### B CID2 ####[facility] Tqbbrivymz629[address] [place], [place] [address]DrMeena Smith BNPon 12-02-2022 Natriuretic peptide B (Bld) [Mass/Vol] 1059.0 pg/mL Normal <=1,800.0 [facility] Comment on above: Performed By: #### B CHAIN MAKER MACHINE #### [facility] [address] [place] [address] [address] Erasmo Smith CBC AUTO DIFFon 12-02-2022 BASO # 0.0 103/ul Normal 0.0-0.1 [facility] Comment on above: Performed By: #### C BC ####[facility] [address] [place] [address]DrMeena Smith Basophils/100 WBC (Bld) 0.2 % Normal 0.2-2.0 [facility] Comment on above: Performed By: #### C BC ####[facility] Zugebmusjn787[address] [place], [place] [address]DrMeena Smith EO # 0.0 103/ul Normal 0.0-0.7 [facility] Comment on above: Performed By: #### C BC ####[facility] [address] [place] [address]Dr. Erasmo Smith Eosinophils/100 WBC (Bld) 0.0 % Critically low 0.9-7.0 [facility] Comment on above: Performed By: #### C BC ####[facility] Soejjlkaud[address] [place], [place] [address]DrMeena Smith Erythrocyte distribution width (RBC) [Ratio] 17.3 % Critically high 11.0-15.0 [facility] Comment on above: Performed By: #### C BC ####[facility] Ksudwfjkoj0[address] [place], [place] [address]DrMeean Smith Hematocrit (Bld) [Volume fraction] 31.4 % Critically low 36.0-48.0 [facility] Comment on above: Performed By: #### C BC ####[facility] Lgjiidkfdj0509[address] [place], [place] [address]DrMeena Smith Hemoglobin (Bld) [Mass/Vol] 10.0 g/dL Critically low 12.0-16.0 The [facility] Comment on above: Performed By: #### C BC ####[facility] [address]yhdc[address] [place] [id number]. Erasmo Smith IG # 0.06 10e3/ul Critically high 0.00-0.03 [facility] Comment on above: Performed By: #### C BC ####[facility] [address] [place] [address]Dr. Erasmo Smith IG % 0.4 % Normal 0.0-0.[address] [facility] Comment on above: Performed By: #### C BC ####[facility] [address]sp[address] [place] [address]DrMeena Smith LYMPH # 1.3 103/ul Normal 1.2-3.[address] [facility] Comment on above: Performed By: #### C BC ####[facility] [address]hiqct[address] [place] [address]DrMeena Smith Lymphocytes/100 WBC (Bld) 8.1 % Critically low 20.5-60.[address] [facility] Comment on above: Performed By: #### C BC ####[facility] [address] [place] [address]DrMeena Smith MANUAL DIFF REQ NO Normal [facility] Comment on above: Performed By: #### C BC ####[facility] [address]thpzezrc[address] [place] [address]Dr. Erasmo Smith MCH (RBC) [Entitic mass] 25.6 pg Critically low 26.7-34.[address] [facility] Comment on above: Performed By: #### C BC ####[facility] [address]xx[address] [place] [address]Dr. Erasmo Smith MCHC (RBC) [Mass/Vol] 31.8 g/dL Normal 29.9-35.2 [facility] Comment on above: Performed By: #### C BC ####[facility] [address]iec[address] [place] [address]Dr. Erasmo Smith MCV (RBC) [Entitic vol] 80.3 fL Critically low 81.0-99.[address] [facility] Comment on above: Performed By: #### C BC ####[facility] [address]ksdfw[address] [place] [id number]. Erasmo Smith MONO # 0.6 103/ul Normal 0.3-0.8 [facility] Comment on above: Performed By: #### C BC ####[facility] [address]mmjdz98[address] [place] [id number]. Erasmo Smith Monocytes/100 WBC (Bld) 3.7 % Normal 1.7-12.0 [facility] Comment on above: Performed By: #### C BC ####[facility] [address]xyef[address] [place] [id number]. Erasmo Smith NEUT # 14.5 103/ul Critically high 1.4-6.5 [facility] Comment on above: Performed By: #### C BC ####[facility] [address] [place] [address]Dr. Erasmo Smith Neutrophils/100 WBC (Bld) 87.6 % Critically high 43.0-75.[address] [facility] Comment on above: Performed By: #### C BC ####[facility] E[address]qf[address] [place] [id number]. Erasmo Smith Platelet mean volume (Bld) [Entitic vol] 10.0 fL Normal 9.5-13.5 [facility] Comment on above: Performed By: #### C BC ####[facility] [address] [place] [id number]. Erasmo Smith PLT 206 103/ul Normal 150-450 [facility] Comment on above: Performed By: #### C BC ####[facility] K[address]jsdz[address] [place] [id number]. Erasmo Smith RBC 3.91 106/ul Critically low 4.20-5.40 The [facility] Comment on above: Performed By: #### C BC ####[facility] X[address]ulscqh[address] [place] [id number]. Erasmo Smith WBC 16.5 103/ul Critically high 4.0-11.0 The [facility] Comment on above: Performed By: #### C ####[facility] [address] [place], [place] [address]Aa. Erasmo Smith ECHOCARDIO M/2D COMPLETEon 0 12-02-2022 ECHOCARDIO M/2D COMPLETE Patient: BREANN STARKS Exam Date: 12/02/2022 : 1945 Gender:F Ordering : KAYLEY HOLMAN . Admission #: [id number] Family : DR LUISANA FISHER . Order #: [id number] CLICK HERE TO VIEW EXAM ECHOCARDIOGRAM REPORT [...] Salazar M.D. on 12/02/2022 at 21:[address] [facility] MAGNESIUMon 12-02-2022 Magnesium [Mass/Vol] 2.0 mg/dL Normal 1.8-2.[address] [facility] Comment on above: Performed By: #### B CHAIN MAKER MACHINE #### [facility] [address] [place] [address] Dr. Erasmo Smith PROF 14(COMP METB)on 023 Albumin [Mass/Vol] 2.7 g/dL Critically low 3.4-5.0 Th [facility] Comment on above: Performed By: #### B CHAIN MAKER MACHINE #### [facility] [address] [place] [address] Dr. Erasmo Smith Albumin/Globulin [Mass ratio] 0.6 {ratio} Normal [facility] Comment on above: Performed By: #### B CHAIN MAKER MACHINE #### [facility] [address] [place] [address] [address] Erasmo Smith ALP [Catalytic activity/Vol] 128 U/L Critically high 46-[address] [facility] Comment on above: Performed By: #### B CHAIN MAKER MACHINE #### [facility] [address] [place] [address] [address] Erasmo Smith ALT [Catalytic activity/Vol] 34 U/L Normal 14-[address] [facility] Comment on above: Performed By: #### B CHAIN MAKER MACHINE #### [facility] [address] [place] [address] [address] Erasmo Smith Anion gap [Moles/Vol] 10.6 mmol/L Normal [facility] Comment on above: Performed By: #### B CHAIN MAKER MACHINE #### [facility] [address] [place] [address] Dr. Erasmo Smith AST [Catalytic activity/Vol] 27 U/L Normal 15-[address] [facility] Comment on above: Performed By: #### B CHAIN MAKER MACHINE #### [facility] [address] [place] [address] Dr. Erasmo Smith Bilirubin [Mass/Vol] 0.5 mg/dL Normal 0.2-1.[address] [facility] Comment on above: Performed By: #### B CHAIN MAKER MACHINE #### [facility] [address] [place] [address] Dr. Erasmo Smith Calcium [Mass/Vol] 8.4 mg/dL Critically low 8.5-10.1 [facility] Comment on above: Performed By: #### B CHAIN MAKER MACHINE #### [facility] [address] [place] [address] Dr. Erasmo Smith Chloride [Moles/Vol] 104 mmol/L Normal 98-[address] [facility] Comment on above: Performed By: #### B CHAIN MAKER MACHINE #### [facility] [address] [place] [address] Dr. Erasmo Smith CO2 [Moles/Vol] 26.2 mmol/L Normal 21.0-32.0 [facility] Comment on above: Performed By: #### B CHAIN MAKER MACHINE #### [facility] [address] [place] [address] Dr. Erasmo Smith Creatinine [Mass/Vol] 0.52 mg/dL Critically low 0.55-1.[address] [facility] Comment on above: Performed By: #### B CHAIN MAKER MACHINE #### [facility] [address] [place] [address] Dr. Erasmo Smith EGFR-AF BURKINAN >60 Normal >=60 [facility] Comment on above: Performed By: #### B CHAIN MAKER MACHINE #### [facility] [address] [place] [address] Dr. Erasmo Smith EGFR-NON AF BURKINAN >60 Normal >=[address] [facility] Comment on above: Performed By: #### B CHAIN MAKER MACHINE #### [facility] [address] [place] [address] Dr. Erasmo Smith Globulin (S) [Mass/Vol] 4.3 g/dL Normal [facility] Comment on above: Performed By: #### B CHAIN MAKER MACHINE #### [facility] [address] [place] [address] Dr. Erasmo Smith Glucose [Mass/Vol] 135 mg/dL Critically high 74-106 [facility] Comment on above: Performed By: #### B CHAIN MAKER MACHINE #### [facility] [address] [place] [address] Dr. Erasmo Smith Potassium [Moles/Vol] 3.8 mmol/L Normal 3.5-5.[address] [facility] Comment on above: Performed By: #### B CHAIN MAKER MACHINE #### [facility] [address] [place] [address] Dr. Erasmo Smith Protein [Mass/Vol] 7.0 g/dL Normal 6.4-8.2 [facility] Comment on above: Performed By: #### B CHAIN MAKER MACHINE #### [facility] [address] [place] [address] Dr. Erasmo Smith Sodium [Moles/Vol] 137 mmol/L Normal 136-145 [facility] Comment on above: Performed By: #### B CHAIN MAKER MACHINE #### [facility] [address] [place] [address] Dr. Erasmo Smith Urea nitrogen [Mass/Vol] 16.0 mg/dL Normal 7.0-18.[address] [facility] Comment on above: Performed By: #### B CHAIN MAKER MACHINE #### [facility] [address] [address] [address] Erasmo Smith Urea nitrogen/Creatinine [Mass ratio] 30.8 mg/mg Normal [facility] Comment on above: Performed By: #### B CHAIN MAKER MACHINE #### [facility] [address] [address] [address] Erasmo Smith PROTIMEon 12-02-2022 INR Coag (PPP) [Relative time] 4.39 {INR} Critically high [facility] Comment on above: Performed By: #### P T #### [facility] [address] [place] [address] Dr. Erasmo Smith INR GUIDELINES SEE BELOW Normal [facility] Comment on above: Result Comment: ABNER RED INR: 2.0 - 3.0 CONDITIONS NOT LISTED BELOW 2.5 - 3.5 FOR PROSTHETIC HEART VALVE REPLACEMENT 2.5 - 3.5 RECURRENT THROMBOSIS Performed By: #### P T #### [facility] [address] [place] [address] Dr. Erasmo Smith PT Coag (PPP) [Time] 42.8 s Critically high 9.0-11.[address] [facility] Comment on above: Performed By: #### P T #### [facility] [address] [place] [address] Dr. Erasmo Smith UA RANDOM W/MICROSCOPICon BACTERIA NONE SEEN Normal NONE SEEN [facility] Comment on above: Performed By: #### U AMIC ####[facility] [address] [place] [address]Dr. Erasmo Smith Bilirubin Ql (U) Negative Normal NEGATIVE [facility] Comment on above: Performed By: #### U AMIC ####[facility] [address] [place] [id number]. Erasmo Smith CAST NONE SEEN Normal NONE SEEN [facility] Comment on above: Performed By: #### U AMIC ####[facility] [address] [place] [address]Dr. Erasmo Smith Clarity (U) CLEAR Normal CLEAR [facility] Comment on above: Performed By: #### U AMIC ####[facility] Oafdiibuid[address] [place], [place] [address]Dr. Erasmo Smith Color (U) YELLOW Normal YELLOW [facility] Comment on above: Performed By: #### U AMIC ####[facility] [address] [place] [address]Dr. Erasmo Smith Crystals LM Nom (Urine sed) NONE SEEN Normal NONE SEEN [facility] Comment on above: Performed By: #### U AMIC ####[facility] Cllklwdift[address] [place], [place] [address]Dr. Erasmo Smith Epithelial cells LM Ql (Urine sed) RARE Normal NONE SEEN /RARE [facility] Comment on above: Performed By: #### U AMIC ####[facility] Rtcaaaicqh[address] [place], [place] [address]Dr. Erasmo Smith Glucose Ql (U) Negative Normal NEGATIVE [facility] Comment on above: Performed By: #### U AMIC ####[facility] Cmisftzzmq[address] [place], [place] [address]Dr. Erasmo Smith Hemoglobin Ql (U) SMALL Abnormal NEGATIVE [facility] Comment on above: Performed By: #### U AMIC ####[facility] Zcliircfcw[address] [place], [place] [address]Dr. Erasmo Smith Ketones Ql (U) 15 mg/dl Abnormal NEGATIVE [facility] Comment on above: Performed By: #### U AMIC ####[facility] Paqnpuixcw[address] [place], [place] [address]Dr. Erasmo Smith LEUKOCYTES Negative Normal NEGATIVE [facility] Comment on above: Performed By: #### U AMIC ####[facility] Ujdkpddksb[address] [place], [place] [address]Dr. Erasmo Smith MUCOUS NONE SEEN Normal NONE SEEN [facility] Comment on above: Performed By: #### U AMIC ####[facility] Czobmftwrw[address] [place], [place] [address]Dr. Erasmo Smith Nitrite Ql (U) Negative Normal NEGATIVE [facility] Comment on above: Performed By: #### U AMIC ####[facility] [address] [place] [address]Dr. Erasmo Smith pH (U) 6.0 [pH] Normal 5-[address] [facility] Comment on above: Performed By: #### U AMIC ####[facility] [address]iv[address] [place] [address]Dr. Erasmo Smith RBC 0-2 Normal 0-[address] [facility] Comment on above: Performed By: #### U AMIC ####[facility] [address]omeh[address] [place] [id number] Smith SPEC GRAVITY 1.025 Normal 1.005-<=1.[address] [facility] Comment on above: Performed By: #### U AMIC ####[facility] [address] [place] [address]DrMeena Smith UA PROTEIN TRACE Normal NEGATIVE/ TRACE [facility] Comment on above: Performed By: #### U AMIC ####[facility] K[address]kgkztt6[address] [place] [id number] Smith Urobilinogen Qn (U) 4 {Shraddha'U}/dL Abnormal 0.2 - 1.[address] [facility] Comment on above: Performed By: #### U AMIC ####[facility] Dzxnolrnpz8727 [place] [id number] Smith WBC 0-2 Abnormal NONE SEEN [facility] Comment on above: Performed By: #### U AMIC ####[facility] [address] [place] [id number] Smith CARDIAC ROSA ELENA 3-6on 3 CK [Catalytic activity/Vol] 53 U/L Normal 26-[address] [facility] Comment on above: Performed By: #### C MREP #### [facility] [address] [place], [place] [address] Dr. Erasmo Smith CK.MB [Mass/Vol] 0.90 ng/mL Normal <=3.60 [facility] Comment on above: Performed By: #### C MREP #### [facility] [address] [place] [address] Dr. Erasmo Smith HSTROP 116.7 pg/mL Critically high 4.0-51.3 [facility] Comment on above: Result Comment: CUT- OFF POINTS HAVE BEEN ESTABLISHED BASED ON THE FOURTH UNIVERSAL DEFINITIONS OF MYOCARDIAL INFARCTION. THE UPPER REFERENCE LIMIT (URL) OF TROPONIN, DEFINED THE 99TH PERCENTILE OF cTnI DISTRIBUTION IN A REFERENCE POPULATION, HAS BEEN CONFIRMED THE DECISION THRESHOLD FOR AR DIAGNOSIS. Performed By: #### C MREP #### [facility] [address] [place] [address] Dr. Erasmo Smith CK [Catalytic activity/Vol] 47 U/L Normal 26-192 [facility] Comment on above: Performed By: #### B CHAIN MAKER MACHINE #### [facility] [address] [place] [address] Dr. Erasmo Smith CK.MB [Mass/Vol] 1.00 ng/mL Normal <=3.60 [facility] Comment on above: Performed By: #### B CHAIN MAKER MACHINE #### [facility] [address] [place] [address] Dr. Erasmo Smith HSTROP 154.3 pg/mL Critically high 4.0-51.3 [facility] Comment on above: Result Comment: CUT- OFF POINTS HAVE BEEN ESTABLISHED BASED ON THE FOURTH UNIVERSAL DEFINITIONS OF MYOCARDIAL INFARCTION. THE UPPER REFERENCE LIMIT (URL) OF TROPONIN, DEFINED THE 99TH PERCENTILE OF cTnI DISTRIBUTION IN A REFERENCE POPULATION, HAS BEEN CONFIRMED THE DECISION THRESHOLD FOR AR DIAGNOSIS. Performed By: #### B CHAIN MAKER MACHINE #### [facility] [address] [place] [address] Dr. Erasmo Smith CBC W MANUAL DIFFon 12-02-19 ATYPICAL LYMPH # Normal [facility] Comment on above: Performed By: #### C BCMAN #### [facility] [address] [place] [address] Dr. Erasmo Smith ATYPICAL LYMPH % Normal [facility] Comment on above: Performed By: #### C ANGELA #### [facility] [address] [place] [address] Dr. Erasmo Smith BAND # 0.6 103/ul Critically high 0.0-0.3 [facility] Comment on above: Performed By: #### C BCMAN #### [facility] [address] [place] [address] Dr. Erasmo Smith BAND % 3 % Normal 0-5 [facility] Comment on above: Performed By: #### C BCMAN #### [facility] [address] [place] [address] Dr. Erasmo Smith BASOM # 0.00 103/ul Normal 0.00-0.[address] [facility] Comment on above: Performed By: #### C BCBLAISE #### [facility] [address] [place] [address] Dr. Erasmo Smith BASOM % 0.0 % Critically low 0.2-2.0 [facility] Comment on above: Performed By: #### C ANGELA #### [facility] [address] [place] [address] Dr. Erasmo Smith BLAST # Normal [facility] Comment on above: Performed By: #### C ANGELA #### [facility] [address] [place] [address] Dr. Erasmo Smith BLAST % Normal [facility] Comment on above: Performed By: #### C ANGELA #### [facility] [address] [place] [address] Dr. Erasmo Smith CORRECTED WBC Normal 4.0-11.[address] [facility] Comment on above: Performed By: #### C BCBLAISE #### [facility] [address] [place] [address] Dr. Erasmo Smith EOS # 0.19 103/ul Normal 0.00-0.[address] [facility] Comment on above: Performed By: #### C BCMAN #### [facility] [address] [place] [address] Dr. Erasmo Smith EOS% 1.0 % Normal 0.9-7.[address] [facility] Comment on above: Performed By: #### C ANGELA #### [facility] [address] [place] [address] Dr. Erasmo Smith HCT 32.7 % Critically low 36.0-48.0 [facility] Comment on above: Performed By: #### C ANGELA #### [facility] [address] [place] [address] [address] Erasmo Smith HGB 10.5 g/dl Critically low 12.0-16.0 [facility] Comment on above: Performed By: #### C ANGELA #### [facility] [address] [place] [address] [address] Erasmo Smith LYMPHM # 0.76 103/ul Critically low 1.20-3.80 [facility] Comment on above: Performed By: #### C ANGELA #### [facility] [address] [place] [address] [address] Erasmo Smith LYMPHM% 4.0 % Critically low 20.5-60.0 [facility] Comment on above: Performed By: #### C ANGELA #### [facility] [address] [place] [address] [address] Erasmo Smith MCH 25.9 pg Critically low 26.7-34.0 [facility] Comment on above: Performed By: #### C ANGELA #### [facility] [address] [place] [address] [address] Erasmo Smith MCHC 32.1 g/dl Normal 29.9-35.[address] [facility] Comment on above: Performed By: #### Yamile MILLER #### [facility] [address] [place] [address] [address] Erasmo Smith MCV 80.5 fL Critically low 81.0-99.0 [facility] Comment on above: Performed By: #### C ANGELA #### [facility] [address] [place] [address] Dr. Erasmo Smith METAMYELOCYTE # Normal [facility] Comment on above: Performed By: #### C ANGELA #### [facility] [address] [place] [address] Dr. Erasmo Smith METAMYELOCYTE % Normal [facility] Comment on above: Performed By: #### C ANGELA #### [facility] [address] [place] [address] [address] Erasmo Smith MONOM# 1.14 103/ul Critically high 0.30-0.80 [facility] Comment on above: Performed By: #### C ANGELA #### [facility] [address] [place] [address] [address] Erasmo Smith MONOM% 6.0 % Normal 1.7-12.[address] [facility] Comment on above: Performed By: #### C ANGELA #### [facility] [address] [place] [address] [address] Erasmo Smith MPV 9.4 fL Critically low 9.5-13.5 [facility] Comment on above: Performed By: #### C ANGELA #### [facility] [address] [place] [address] Dr. Erasmo Smith MYELOCYTE # Normal [facility] Comment on above: Performed By: #### C ANGELA #### [facility] [address] [place] [address] Dr. Erasmo Smith MYELOCYTE % Normal [facility] Comment on above: Performed By: #### C ANGELA #### [facility] [address] [place] [address] Dr. Erasmo Smith NRBC Normal [facility] Comment on above: Performed By: #### C ANGELA #### [facility] [address] [place] [address] [address] Erasmo Smith PLT 195 103/ul Normal 150-450 [facility] Comment on above: Performed By: #### C ANGELA #### [facility] [address] [place] [address] Dr. Erasmo Smith RBC 4.06 106/ul Critically low 4.20-5.40 [facility] Comment on above: Performed By: #### C ANGELA #### [facility] [address] [place] [address] [address] Erasmo Smith RDW 17.7 % Critically high 11.0-15.0 [facility] Comment on above: Performed By: #### C ANGELA #### [facility] [address] [place], [place] [address] Dr. Erasmo Smith SEG # 16.34 103/ul Critically high 1.40-6.50 [facility] Comment on above: Performed By: #### C ALHAJIMAN #### [facility] [address] [place], [place] [address] Dr. Erasmo Smith SEG % 86.0 % Critically high 43.0-75.0 [facility] Comment on above: Performed By: #### C ALHAJIMAN #### [facility] [address] [place], [place] [address] Dr. Erasmo Smith WBC 19.0 103/ul Critically high 4.0-11.0 [facility] Comment on above: Performed By: #### C ALHAJIMAN #### [facility] [address] [place], [place] [address] HEAD WO CONon [...] SALOME MCCORMICK Date: 2022 14:50 Normal [facility] CULTURE BLOODon 2022 Microscopic examination of blood, culture Culture Observations: Aerobic and Anaerobic bottle positive. BCID: E. Coli Culture Observations: Refer to for VIOLET. Isolate 1 Escherichia coli Growth of Normal [facility] Comment on above: Performed By: #### B LDCX2 ####[facility] [address] [place], [place] [address]XdDr. Erasmo Smith Covid-19 PCR (CVDTBH)on 11-11 SARS-CoV-2 (COVID-19) RNA EMILY+probe Ql (Unsp spec) Not detected Normal NOT DETECTED [facility] Comment on above: Result Comment: [...] for this test is supported by the [place] of Health and Human Service's declaration that [...] used). Performed By: #### C MREP #### [facility] [address] [place], [place] [address] Dr. Erasmo Smith LACTATE/LACTIC ACIDon 2022 Lactate [Moles/Vol] 1.2 mmol/L Normal 0.4-2.0 [facility] Comment on above: Performed By: #### L ACT ####[facility] [address] [place], [place] [address]ViDr. Erasmo Smith PH VENOUS BLOODon 2022 PCO2 VENOUS 37.8 mmHg Critically low 40.0-52.0 [facility] Comment on above: Performed By: #### P HVEN ####[facility] [address] [place], [place] [address]DoDr. Erasmo Smith pH VENOUS 7.417 Normal 7.330-7.430 [facility] Comment on above: Performed By: #### P HVEN ####[facility] [address] [place] [id number]. Erasmo Smith PROF 14(COMP METB)on 023 Albumin [Mass/Vol] 3.1 g/dL Critically low 3.4-5.0 [facility] Comment on above: Performed By: #### H ALEXSANDER, CMP ####[facility] [address] [place] [address]Dr. Erasmo Smith Albumin/Globulin [Mass ratio] 0.8 {ratio} Normal [facility] Comment on above: Performed By: #### H ALEXSANDER, CMP ####[facility] [address] [place] [address]Dr. Erasmo Smith ALP [Catalytic activity/Vol] 194 U/L Critically high 46-[address] [facility] Comment on above: Performed By: #### H ALEXSANDER, CMP ####[facility] [address] [place] [address]Dr. Erasmo Smith ALT [Catalytic activity/Vol] 37 U/L Normal 14-[address] [facility] Comment on above: Performed By: #### H ALEXSANDER, CMP ####[facility] [address] [place] [address]Dr. Erasmo Smith Anion gap [Moles/Vol] 14.6 mmol/L Normal [facility] Comment on above: Performed By: #### H ALEXSANDER, CMP ####[facility] [address] [place], [place] [address]Dr. Erasmo Smith AST [Catalytic activity/Vol] 32 U/L Normal 15-[address] [facility] Comment on above: Performed By: #### H ALEXSANDER, CMP ####[facility] [address] [place] [address]Dr. Erasmo Smith Bilirubin [Mass/Vol] 1.0 mg/dL Normal 0.2-1.[address] [facility] Comment on above: Performed By: #### H ALEXSANDER, CMP ####[facility] [address] [place] [address]Dr. Erasmo Smith Calcium [Mass/Vol] 8.9 mg/dL Normal 8.5-10.1 [facility] Comment on above: Performed By: #### H ALEXSANDER, CMP ####[facility] [address] [place] [address]Dr. Erasmo Smith Chloride [Moles/Vol] 103 mmol/L Normal 98-107 [facility] Comment on above: Performed By: #### H ALEXSANDER, CMP ####[facility] [address] [place] [address]Dr. Erasmo Smith CO2 [Moles/Vol] 23.6 mmol/L Normal 21.0-32.0 [facility] Comment on above: Performed By: #### H ALEXSANDER, CMP ####[facility] [address] [place] [address]Dr. Erasmo Smith Creatinine [Mass/Vol] 0.69 mg/dL Normal 0.55-1.02 [facility] Comment on above: Performed By: #### H ALEXSANDER, CMP ####[facility] [address] [place], [place] [address]Dr. Erasmo Smith EGFR-AF BURKINAN >60 Normal >=60 [facility] Comment on above: Performed By: #### H ALEXSANDER, CMP ####[facility] [address] [place] [address]Dr. Erasmo Smith EGFR-NON AF BURKINAN >60 Normal >=60 [facility] Comment on above: Performed By: #### H ALEXSANDER, CMP ####[facility] [address] [place], [place] [address]Dr. Erasmo Smith Globulin (S) [Mass/Vol] 4.1 g/dL Normal [facility] Comment on above: Performed By: #### Kymberly BELTRE, CMP ####[facility] [address] [place] [address]Dr. Erasmo Smith Glucose [Mass/Vol] 121 mg/dL Critically high 74-[address] [facility] Comment on above: Performed By: #### H ALEXSANDER, CMP ####[facility] [address] [place] [address]Dr. Erasmo Smith Potassium [Moles/Vol] 3.2 mmol/L Critically low 3.5-5.1 [facility] Comment on above: Performed By: #### H ALEXSANDER, CMP ####[facility] [address] [place] [address]Dr. Erasmo Smith Protein [Mass/Vol] 7.2 g/dL Normal 6.4-8.2 [facility] Comment on above: Performed By: #### H ALEXSANDER, CMP ####[facility] [address] [place] [address]Dr. Erasmo Smith Sodium [Moles/Vol] 138 mmol/L Normal 136-145 [facility] Comment on above: Performed By: #### H ALEXSANDER, CMP ####[facility] [address] [place] [address]Dr. Erasmo Smith Urea nitrogen [Mass/Vol] 17.0 mg/dL Normal 7.0-18.0 [facility] Comment on above: Performed By: #### H ALEXSANDER, CMP ####[facility] [address] [place] [address]Dr. Erasmo Smith Urea nitrogen/Creatinine [Mass ratio] 24.6 mg/mg Normal [facility] Comment on above: Performed By: #### H ALEXSANDER, CMP ####[facility] [address] [place] [address]DrMeena Smith PROTIMEon 2022 INR Coag (PPP) [Relative time] 3.58 {INR} Normal [facility] Comment on above: Performed By: #### P T, PTT #### [facility] [address] [place] [address] Dr. Erasmo Smith INR GUIDELINES SEE BELOW Normal [facility] Comment on above: Result Comment: ABNER RED INR: 2.0 - 3.0 CONDITIONS NOT LISTED BELOW 2.5 - 3.5 FOR PROSTHETIC HEART VALVE REPLACEMENT 2.5 - 3.5 RECURRENT THROMBOSIS Performed By: #### P T, PTT #### [facility] [address] [place] [address] [address] Erasmo Smith PT Coag (PPP) [Time] 35.3 s Critically high 9.0-11.6 [facility] Comment on above: Performed By: #### P T, PTT #### [facility] [address] [place] [address] Dr. Erasmo Smith PTTon 2022 aPTT Coag (Bld) [Time] 40.3 s Critically high 22.3-36. 2 [facility] Comment on above: Performed By: #### P T, PTT #### [facility] [address] [place] [address] [address] [address] Erasmo Smith TROPONIN, HIGH SENSITIVITYon 2022 HSTROP 194.7 pg/mL Critically high 4.0-51.3 [facility] Comment on above: Result Comment: CUT- OFF POINTS HAVE BEEN ESTABLISHED BASED ON THE FOURTH UNIVERSAL DEFINITIONS OF MYOCARDIAL INFARCTION. THE UPPER REFERENCE LIMIT (URL) OF TROPONIN, DEFINED THE 99TH PERCENTILE OF cTnI DISTRIBUTION IN A REFERENCE POPULATION, HAS BEEN CONFIRMED THE DECISION THRESHOLD FOR AR DIAGNOSIS. Performed By: #### C MREP #### [facility] [address] [place] [address] Dr. Erasmo Smith HSTROP 218.0 pg/mL Critically high 4.0-51.3 [facility] Comment on above: Result Comment: CUT- OFF POINTS HAVE BEEN ESTABLISHED BASED ON THE FOURTH UNIVERSAL DEFINITIONS OF MYOCARDIAL INFARCTION. THE UPPER REFERENCE LIMIT (URL) OF TROPONIN, DEFINED THE 99TH PERCENTILE OF cTnI DISTRIBUTION IN A REFERENCE POPULATION, HAS BEEN CONFIRMED THE DECISION THRESHOLD FOR AR DIAGNOSIS. Performed By: #### B CHAIN MAKER MACHINE #### [facility] [address] [place] [address] Dr. Erasmo Smith XR CHEST 1 Von [...] by: HONG ALSTON Date: 2022 14:18 Normal [facility] MG MAMM SCREEN 3D TOÑITO CADon 11-26-2022 MG MAMM SCREEN 3D TOÑITO CAD Patient: BREANN STARKS Exam Date: 11/26/2022 : 1945 Gender:F Ordering : DR LUISANA FISHER . Admission #: [id number] Family : Order #: [id number] CLICK HERE TO VIEW EXAM RADIOLOGY REPORT [...] Treatments None Family Cancers None LOCATION: [facility] BREAST COMPOSITION: Heterogeneously dense,which may [...] LUMP SHOULD BE BIOPSIED. Dictated by: Paula Delagdo M.D. on 11/26/2022 at 14:10 Approved by: Paula Delgado M.D. on 11/26/2022 at 14:[address] [facility] PROF 14(COMP METB)on 022 Albumin [Mass/Vol] 3.8 g/dL Normal 3.4-5.0 [facility] Comment on above: Performed By: #### C MREP #### [facility] [address] [place] [address] [address] Erasmo Smith Albumin/Globulin [Mass ratio] 0.8 {ratio} Normal [facility] Comment on above: Performed By: #### C MREP #### [facility] [address] [place] [address] [address] Erasmo Smith ALP [Catalytic activity/Vol] 102 U/L Normal 46-[address] [facility] Comment on above: Performed By: #### C MREP #### [facility] [address] [place] [address] [address] Erasmo Smith ALT [Catalytic activity/Vol] 47 U/L Normal 14-[address] [facility] Comment on above: Performed By: #### C MREP #### [facility] [address] [place] [address] [address] Erasmo Smith Anion gap [Moles/Vol] 12.5 mmol/L Normal [facility] Comment on above: Performed By: #### C MREP #### [facility] [address] [place] [address] [address] Erasmo Smith AST [Catalytic activity/Vol] 36 U/L Normal 15-[address] [facility] Comment on above: Performed By: #### C MREP #### [facility] [address] [place] [address] Dr. Erasmo Smith Bilirubin [Mass/Vol] 0.3 mg/dL Normal 0.2-1.[address] [facility] Comment on above: Performed By: #### C MREP #### [facility] [address] [place] [address] Dr. Erasmo Smith Calcium [Mass/Vol] 8.9 mg/dL Normal 8.5-10.1 [facility] Comment on above: Performed By: #### C MREP #### [facility] [address] [place] [address] Dr. Erasmo Smith Chloride [Moles/Vol] 106 mmol/L Normal 98-[address] [facility] Comment on above: Performed By: #### C MREP #### [facility] [address] [place] [address] Dr. Erasmo Smith CO2 [Moles/Vol] 26.9 mmol/L Normal 21.0-32.0 [facility] Comment on above: Performed By: #### C MREP #### [facility] [address] [place] [address] Dr. Erasmo Smith Creatinine [Mass/Vol] 0.79 mg/dL Normal 0.55-1.[address] [facility] Comment on above: Performed By: #### C MREP #### [facility] [address] [place] [address] Dr. Erasmo Smith EGFR-AF BURKINAN >60 Normal >=60 [facility] Comment on above: Performed By: #### C MREP #### [facility] [address] [place] [address] Dr. Erasmo Smith EGFR-NON AF BURKINAN >60 Normal >=[address] [facility] Comment on above: Performed By: #### C MREP #### [facility] [address] [place] [address] [address] Erasmo Smith Globulin (S) [Mass/Vol] 4.6 g/dL Normal [facility] Comment on above: Performed By: #### C MREP #### [facility] [address] [place] [address] Dr. Erasmo Smith Glucose [Mass/Vol] 102 mg/dL Normal 74-106 [facility] Comment on above: Performed By: #### C MREP #### [facility] [address] [place] [address] Dr. Erasmo Smith Potassium [Moles/Vol] 4.4 mmol/L Normal 3.5-5.[address] [facility] Comment on above: Performed By: #### C MREP #### [facility] [address] [place] [address] Dr. Erasmo Smith Protein [Mass/Vol] 8.4 g/dL Critically high 6.4-8.2 [facility] Comment on above: Performed By: #### C MREP #### [facility] [address] [place] [address] Dr. Erasmo Smith Sodium [Moles/Vol] 141 mmol/L Normal 136-145 [facility] Comment on above: Performed By: #### C MREP #### [facility] [address] [place] [address] [address] Erasmo Smith Urea nitrogen [Mass/Vol] 28.0 mg/dL Critically high 7.0-18.[address] [facility] Comment on above: Performed By: #### C MREP #### [facility] [address] [place] [address] Dr. Erasmo Smith Urea nitrogen/Creatinine [Mass ratio] 35.4 mg/mg Normal [facility] Comment on above: Performed By: #### C MREP #### [facility] [address] [place] [address] Dr. Erasmo Smith CBC AUTO DIFFon 07-12-2022 BASO # 0.1 103/ul Normal 0.0-0.[address] [facility] Comment on above: Performed By: #### B CHAIN MAKER MACHINE #### [facility] [address] [place] [address] Dr. Erasmo Smith Basophils/100 WBC (Bld) 0.5 % Normal 0.2-2.[address] [facility] Comment on above: Performed By: #### B CHAIN MAKER MACHINE #### [facility] [address] [place] [address] Dr. Erasmo Smith EO # 0.2 103/ul Normal 0.0-0.[address] [facility] Comment on above: Performed By: #### B CHAIN MAKER MACHINE #### [facility] [address] [place] [address] Dr. Erasmo Smith Eosinophils/100 WBC (Bld) 2.5 % Normal 0.9-7.[address] [facility] Comment on above: Performed By: #### B CHAIN MAKER MACHINE #### [facility] [address] [place] [address] Dr. Erasmo Smith Erythrocyte distribution width (RBC) [Ratio] 17.2 % Critically high 11.0-15.[address] [facility] Comment on above: Performed By: #### B CHAIN MAKER MACHINE #### [facility] [address] [place] [address] Dr. Erasmo Smith Hematocrit (Bld) [Volume fraction] 35.0 % Critically low 36.0-48.[address] [facility] Comment on above: Performed By: #### B CHAIN MAKER MACHINE #### [facility] [address] [place] [address] Dr. Erasmo Smith Hemoglobin (Bld) [Mass/Vol] 11.3 g/dL Critically low 12.0-16.[address] [facility] Comment on above: Performed By: #### B CHAIN MAKER MACHINE #### [facility] [address] [place] [address] Dr. Erasmo Smith IG # 0.02 10e3/ul Normal 0.00-0.[address] [facility] Comment on above: Performed By: #### B CHAIN MAKER MACHINE #### [facility] [address] [place] [address] Dr. Erasmo Smith IG % 0.2 % Normal 0.0-0.[address] [facility] Comment on above: Performed By: #### B CHAIN MAKER MACHINE #### [facility] [address] [place] [address] Dr. Erasmo Smith LYMPH # 2.3 103/ul Normal 1.2-3.[address] [facility] Comment on above: Performed By: #### B CHAIN MAKER MACHINE #### [facility] [address] [place] [address] Dr. Erasmo Smith Lymphocytes/100 WBC (Bld) 25.4 % Normal 20.5-60.[address] [facility] Comment on above: Performed By: #### B CHAIN MAKER MACHINE #### [facility] [address] [place] [address] Dr. Erasmo Smith MANUAL DIFF REQ NO Normal [facility] Comment on above: Performed By: #### B CHAIN MAKER MACHINE #### [facility] [address] [place] [address] Dr. Erasmo Smith MCH (RBC) [Entitic mass] 25.5 pg Critically low 26.7-34.[address] [facility] Comment on above: Performed By: #### B CHAIN MAKER MACHINE #### [facility] [address] [place] [address] Dr. Erasmo Smith MCHC (RBC) [Mass/Vol] 32.3 g/dL Normal 29.9-35.[address] [facility] Comment on above: Performed By: #### B CHAIN MAKER MACHINE #### [facility] [address] [place] [address] Dr. Erasmo Smith MCV (RBC) [Entitic vol] 78.8 fL Critically low 81.0-99.[address] [facility] Comment on above: Performed By: #### B CHAIN MAKER MACHINE #### [facility] [address] [place] [address] Dr. Erasmo Smith MONO # 0.7 103/ul Normal 0.3-0.[address] [facility] Comment on above: Performed By: #### B CHAIN MAKER MACHINE #### [facility] [address] [address] [address] Erasmo Smith Monocytes/100 WBC (Bld) 7.5 % Normal 1.7-12.[address] [facility] Comment on above: Performed By: #### B CHAIN MAKER MACHINE #### [facility] [address] [address] [address] Erasmo Smith NEUT # 5.9 103/ul Normal 1.4-6.[address] [facility] Comment on above: Performed By: #### B CHAIN MAKER MACHINE #### [facility] [address] [place] [address] Dr. Erasmo Smith Neutrophils/100 WBC (Bld) 63.9 % Normal 43.0-75.[address] [facility] Comment on above: Performed By: #### B CHAIN MAKER MACHINE #### [facility] [address] [place] [address] Dr. Erasmo Smith Platelet mean volume (Bld) [Entitic vol] 9.0 fL Critically low 9.5-13.[address] [facility] Comment on above: Performed By: #### B CHAIN MAKER MACHINE #### [facility] [address] [place] [address] Dr. Erasmo Smith PLT 305 103/ul Normal 150-450 [facility] Comment on above: Performed By: #### B CHAIN MAKER MACHINE #### [facility] [address] [place] [address] Dr. Erasmo Smith RBC 4.44 106/ul Normal 4.20-5.40 [facility] Comment on above: Performed By: #### B CHAIN MAKER MACHINE #### [facility] [address] [place] [address] Dr. Erasmo Smith WBC 9.2 103/ul Normal 4.0-11.0 [facility] Comment on above: Performed By: #### B CHAIN MAKER MACHINE #### [facility] [address] [place] [address] CHEST WO CONon [...] by: PAULA DELGADO Date: 2022-05-27 15:[address] [facility] HEMOGLOBINon 04-20-2022 Hemoglobin (Bld) [Mass/Vol] 10.6 g/dL Critically low 12.0-16.[address] [facility] Comment on above: Performed By: #### H GB ####[facility] [address] [address]Dr. Erasmo Smith CULTURE SPUTUMon 04-02-2022 CULTURE SPUTUM Isolate 1 Pseudomonas aeruginosa Light growth of ORGANISM 1 Pseudomonas aeruginosa ANTIBIOTIC M.I.C RX STATUS Piperacillin/Tazobac saez 8 S F Ceftazidime 2 S F Imipenem 1 S F Amikacin <=2 S F Gentamicin <=1 S F Tobramycin <=1 S F Ciprofloxacin <=0.25 S F Levofloxacin 0.[address] S F [address] [facility] Comment on above: Performed By: #### S PUTCX ####[facility] [address] [id number]. Erasmo Luis CYTOLOGYon 03-30-2022 SENT TO REF LAB 03/31/22 Normal [facility] Comment on above: Performed By: #### C YTO #### [facility] [address] [address] [address] Erasmo Smith SPUTUM GRAM STAINon 03-30-[address] [facility] Comment on above: Performed By: #### B CHAIN MAKER MACHINE #### [facility] [address] [address] [address] Erasmo Smith DIPHTHEROIDS Normal [facility] Comment on above: Performed By: #### B CHAIN MAKER MACHINE #### [facility] [address] [address] [address] Erasmo Smith EPITHELIALS <[address] [facility] Comment on above: Performed By: #### B CHAIN MAKER MACHINE #### [facility] [address] [address] [address] Erasmo Smith FUNGAL ELEMENTS Normal [facility] Comment on above: Performed By: #### B CHAIN MAKER MACHINE #### [facility] [address] [address] [address] Erasmo Smith GRAM NEG BACILLI FEW [facility] Comment on above: Performed By: #### B CHAIN MAKER MACHINE #### [facility] [address] [address] [address] Erasmo Smith GRAM NEG DIPPLOCOCCI [facility] Comment on above: Performed By: #### B CHAIN MAKER MACHINE #### [facility] [address] [address] [address] Erasmo Smith GRAM POS BACILLI [facility] Comment on above: Performed By: #### B CHAIN MAKER MACHINE #### [facility] [address] [address] [address] Erasmo Smith GRAM POSITIVE COCCI MANY Normal [facility] Comment on above: Performed By: #### B CHAIN MAKER MACHINE #### [facility] [address] [address] [address] Erasmo Smith WBC (Bld) [#/Vol] 10*3/uL [facility] Comment on above: Performed By: #### B CHAIN MAKER MACHINE #### [facility] [address] [address] [address] Erasmo Smith SPUTUM CULTUREon 03-01-2022 Epithelial cells LM Ql (Urine sed) Few Normal [facility] Comment on above: Performed By: #### C XSPTUM ####[facility] [address] [id number]. Erasmo Smith Gram Stain Evaluation Comment Normal [facility] Comment on above: Result Comment: This specimen is of good quality and is acceptable for routine bacterial culture. Performed By: #### C XSPTUM ####[facility] [address] [id number]. Erasmo Smith Lower Respiratory Culture Final report Normal [facility] Comment on above: Performed By: #### C XSPTUM ####[facility] [address] [address]Dr. Erasmo Smith Result [address] [facility] Comment on above: Result Comment: Few gram positive cocci Performed By: #### C XSPTUM ####[facility] [address] [place], [place] [address]Dr. Erasmo Smith Result Comment: Rout ine respiratory adria Result 2 Normal [facility] Comment on above: Performed By: #### C XSPTUM ####[facility] [address] [address]Dr. Erasmo Smith Result 3 Normal [facility] Comment on above: Performed By: #### C XSPTUM ####[facility] [address] [place], [place] [address]Dr. Erasmo Smith Result 4 Normal [facility] Comment on above: Performed By: #### C XSPTUM ####[facility] [address] [address]Dr. Erasmo Smith White Blood Cells Few Normal [facility] Comment on above: Performed By: #### C XSPTUM ####[facility] [address] [address]DrMeena Smith BNPon 02-24-2022 Natriuretic peptide B (Bld) [Mass/Vol] 319.0 pg/mL Normal <=900.0 [facility] Comment on above: Performed By: #### B CHAIN MAKER MACHINE #### [facility] [address] [address] [address] Erasmo Smith CBC AUTO DIFFon 02-24-2022 BASO # 0.1 103/ul Normal 0.0-0.[address] [facility] Comment on above: Performed By: #### C MREP #### [facility] [address] [place] [address] Dr. Erasmo Smith Basophils/100 WBC (Bld) 0.5 % Normal 0.2-2.[address] [facility] Comment on above: Performed By: #### C MREP #### [facility] [address] [place] [address] Dr. Erasmo Smith EO # 0.3 103/ul Normal 0.0-0.7 [facility] Comment on above: Performed By: #### C MREP #### [facility] [address] [place] [address] Dr. Erasmo Smith Eosinophils/100 WBC (Bld) 3.1 % Normal 0.9-7.[address] [facility] Comment on above: Performed By: #### C MREP #### [facility] [address] [place] [address] Dr. Erasmo Smith Erythrocyte distribution width (RBC) [Ratio] 15.1 % Critically high 11.0-15.[address] [facility] Comment on above: Performed By: #### C MREP #### [facility] [address] [place] [address] Dr. Erasmo Smith Hematocrit (Bld) [Volume fraction] 33.9 % Critically low 36.0-48.[address] [facility] Comment on above: Performed By: #### C MREP #### [facility] [address] [place] [address] Dr. Erasmo Smith Hemoglobin (Bld) [Mass/Vol] 10.7 g/dL Critically low 12.0-16.[address] [facility] Comment on above: Performed By: #### C MREP #### [facility] [address] [place] [address] Dr. Erasmo Smith IG # 0.03 10e3/ul Normal 0.00-0.[address] [facility] Comment on above: Performed By: #### C MREP #### [facility] [address] [place] [address] Dr. Erasmo Smith IG % 0.3 % Normal 0.0-0.[address] [facility] Comment on above: Performed By: #### C MREP #### [facility] [address] [place] [address] Dr. Erasmo Smith LYMPH # 2.8 103/ul Normal 1.2-3.[address] [facility] Comment on above: Performed By: #### C MREP #### [facility] [address] [place] [address] Dr. Erasmo Smith Lymphocytes/100 WBC (Bld) 30.6 % Normal 20.5-60.[address] [facility] Comment on above: Performed By: #### C MREP #### [facility] [address] [place] [address] Dr. Erasmo Smith MANUAL DIFF REQ NO Normal [facility] Comment on above: Performed By: #### C MREP #### [facility] [address] [place] [address] Dr. Erasmo Smith MCH (RBC) [Entitic mass] 26.9 pg Normal 26.7-34.[address] [facility] Comment on above: Performed By: #### C MREP #### [facility] [address] [place] [address] Dr. Erasmo Smith MCHC (RBC) [Mass/Vol] 31.6 g/dL Normal 29.9-35.[address] [facility] Comment on above: Performed By: #### C MREP #### [facility] [address] [place] [address] Dr. Erasmo Smith MCV (RBC) [Entitic vol] 85.2 fL Normal 81.0-99.0 [facility] Comment on above: Performed By: #### C MREP #### [facility] [address] [place] [address] Dr. Erasmo Smith MONO # 0.7 103/ul Normal 0.3-0.[address] [facility] Comment on above: Performed By: #### C MREP #### [facility] [address] [place] [address] Dr. Erasmo Smith Monocytes/100 WBC (Bld) 7.9 % Normal 1.7-12.[address] [facility] Comment on above: Performed By: #### C MREP #### [facility] [address] [place] [address] Dr. Erasmo Smith NEUT # 5.3 103/ul Normal 1.4-6.[address] [facility] Comment on above: Performed By: #### C MREP #### [facility] [address] [place] [address] Dr. Erasmo Smith Neutrophils/100 WBC (Bld) 57.6 % Normal 43.0-75.[address] [facility] Comment on above: Performed By: #### C MREP #### [facility] [address] [place] [address] Dr. Erasmo Smith Platelet mean volume (Bld) [Entitic vol] 9.0 fL Critically low 9.5-13.[address] [facility] Comment on above: Performed By: #### C MREP #### [facility] [address] [place] [address] Dr. Erasmo Smith PLT 249 103/ul Normal 150-450 [facility] Comment on above: Performed By: #### C MREP #### [facility] [address] [place] [address] Dr. Erasmo Smith RBC 3.98 106/ul Critically low 4.20-5.40 [facility] Comment on above: Performed By: #### C MREP #### [facility] [address] [place] [address] Dr. Erasmo Smith WBC 9.1 103/ul Normal 4.0-11.0 [facility] Comment on above: Performed By: #### C MREP #### [facility] [address] [place] [address] Dr. Erasmo Smith CTA CHEST WO W CONon 02-24- 022 CTA CHEST WO W CON [...] PAULA DELGADO Date: 2022-02-24 18:24 Normal [facility] D-DIMERon 02-24-2022 D-DIMER 1.36 mg/L FEU Critically high <=0.59 [facility] Comment on above: Performed By: #### D DIM #### [facility] [address] [address] [address] Erasmo Smith D-DIMER COMMENTS SEE BELOW Normal [facility] Comment on above: Result Comment: Incr [...] hospitalization. Performed By: #### D DIM #### [facility] [address] [address] [address] Erasmo Smith PROF 14(COMP METB)on 06-15-2 022 Albumin [Mass/Vol] 3.6 g/dL Normal 3.4-5.0 [facility] Comment on above: Performed By: #### C MREP #### [facility] [address] [place] [address] Dr. Erasmo Smith Albumin/Globulin [Mass ratio] 0.8 {ratio} Normal [facility] Comment on above: Performed By: #### C MREP #### [facility] [address] [address] [address] Erasmo Smith ALP [Catalytic activity/Vol] 95 U/L Normal 46-[address] [facility] Comment on above: Performed By: #### C MREP #### [facility] [address] [place] [address] Dr. Erasmo Smith ALT [Catalytic activity/Vol] 45 U/L Normal 14-[address] [facility] Comment on above: Performed By: #### C MREP #### [facility] [address] [place] [address] Dr. Erasmo Smith Anion gap [Moles/Vol] 15.9 mmol/L Normal [facility] Comment on above: Performed By: #### C MREP #### [facility] [address] [place] [address] Dr. Erasmo Smith AST [Catalytic activity/Vol] 33 U/L Normal 15-[address] [facility] Comment on above: Performed By: #### C MREP #### [facility] [address] [place] [address] Dr. Erasmo Smith Bilirubin [Mass/Vol] 0.5 mg/dL Normal 0.2-1.[address] [facility] Comment on above: Performed By: #### C MREP #### [facility] [address] [place] [address] Dr. Erasmo Smith Calcium [Mass/Vol] 9.1 mg/dL Normal 8.5-10.1 [facility] Comment on above: Performed By: #### C MREP #### [facility] [address] [place] [address] Dr. Erasmo Smith Chloride [Moles/Vol] 103 mmol/L Normal 98-[address] [facility] Comment on above: Performed By: #### C MREP #### [facility] [address] [address] [address] Erasmo Smith CO2 [Moles/Vol] 25.1 mmol/L Normal 21.0-32.0 [facility] Comment on above: Performed By: #### C MREP #### [facility] [address] [address] [address] Erasmo Smith Creatinine [Mass/Vol] 0.77 mg/dL Normal 0.55-1.[address] [facility] Comment on above: Performed By: #### C MREP #### [facility] [address] [place] [address] Dr. Erasmo Smith EGFR-AF BURKINAN >60 Normal >=60 [facility] Comment on above: Performed By: #### C MREP #### [facility] [address] [place] [address] Dr. Erasmo Smith EGFR-NON AF BURKINAN >60 Normal >=[address] [facility] Comment on above: Performed By: #### C MREP #### [facility] [address] [address] [address] Erasmo Simth Globulin (S) [Mass/Vol] 4.3 g/dL Normal [facility] Comment on above: Performed By: #### C MREP #### [facility] [address] [address] [address] Erasmo Smith Glucose [Mass/Vol] 92 mg/dL Normal 74-106 [facility] Comment on above: Performed By: #### C MREP #### [facility] [address] [address] [address] Erasmo Smith Potassium [Moles/Vol] 4.0 mmol/L Normal 3.5-5.1 [facility] Comment on above: Performed By: #### C MREP #### [facility] [address] [place] [address] Dr. Erasmo Smith Protein [Mass/Vol] 7.9 g/dL Normal 6.4-8.2 [facility] Comment on above: Performed By: #### C MREP #### [facility] [address] [address] [address] Erasmo Smith Sodium [Moles/Vol] 140 mmol/L Normal 136-145 [facility] Comment on above: Performed By: #### C MREP #### [facility] [address] [address] [address] Erasmo Smith Urea nitrogen [Mass/Vol] 17.0 mg/dL Normal 7.0-18.[address] [facility] Comment on above: Performed By: #### C MREP #### [facility] [address] [address] [address] Erasmo Smith Urea nitrogen/Creatinine [Mass ratio] 22.1 mg/mg Normal [facility] Comment on above: Performed By: #### C MREP #### [facility] [address] [address] [address] Erasmo Smith PROTIMEon 02-24-2022 INR Coag (PPP) [Relative time] 2.28 {INR} Normal [facility] Comment on above: Performed By: #### P T, PTT ####[facility] [address] [address]Dr. Erasmo Smith INR GUIDELINES SEE BELOW Normal [facility] Comment on above: Result Comment: ABNER RED INR: 2.0 - 3.0 CONDITIONS NOT LISTED BELOW 2.5 - 3.5 FOR PROSTHETIC HEART VALVE REPLACEMENT 2.5 - 3.5 RECURRENT THROMBOSIS Performed By: #### P T, PTT ####[facility] [address] [address]Dr. Erasmo Smith PT Coag (PPP) [Time] 23.3 s Critically high 9.0-11.[address] [facility] Comment on above: Performed By: #### P T, PTT ####[facility] [address] [address]Dr. Erasmo Smith PTTon 02-24-2022 aPTT Coag (Bld) [Time] 34.7 s Normal 22.3-36.2 [facility] Comment on above: Performed By: #### P T, PTT ####[facility] [address] [place], [place] [address]VmDr. Erasmo Smith TROPONIN, HIGH SENSITIVITYon 02-24-2022 HSTROP 6.6 pg/mL Normal 4.0-51.3 [facility] Comment on above: Result Comment: CUT- OFF POINTS HAVE BEEN ESTABLISHED BASED ON THE FOURTH UNIVERSAL DEFINITIONS OF MYOCARDIAL INFARCTION. THE UPPER REFERENCE LIMIT (URL) OF TROPONIN, DEFINED THE 99TH PERCENTILE OF cTnI DISTRIBUTION IN A REFERENCE POPULATION, HAS BEEN CONFIRMED THE DECISION THRESHOLD FOR AR DIAGNOSIS. Performed By: #### C MREP #### [facility] [address] [place], [place] [address] Dr. Erasmo Smith PROTHROMBIN TIMEon 2 INR Coag (PPP) [Relative time] 1.2 {INR} High 0.86-1.16 [facility] Comment on above: Result Comment: INR Theraputic Range: 2.0-3.5 Performed at [address] [address] PT Coag (PPP) [Time] 12.7 s Normal 9.3-12.7 [facility] ANTICOAGULANT COUMADIN Normal [facility] Vital Signs Date Time Vital Sign Value Performing Clinician Facility 03-02-2024 11:51-0400 Blood Pressure Location Ortega ALEXANDER [facility] [place] 03-02-2024 11:51-0400 Diastolic blood pressure 75 mm[Hg] Ortega ALEXANDER [facility] [place] 03-02-2024 11:51-0400 Heart rate 71 /min Ortega ALEXANDER [facility] [place] 03-02-2024 11:51-0400 Respiratory rate 16 /min Ortega ALEXANDER [facility] [place] 03-02-2024 11:51-0400 Systolic blood pressure 118 mm[Hg] Ortega ALEXANDER [facility] [place] 10-07-2021 16:00-0500 Body height 146.69 cm Hong Nevarez Other [facility] Other 10-07-2021 16:00-0500 Body mass index (BMI) [Ratio] 51.01 kg/m2 Hong Nevarez Other [facility] Other 10-07-2021 16:00-0500 Body weight 109.77 kg Hong Nevarez Other [facility] Other 08-26-2021 15:15-0500 Body height 146.69 cm Hong Nevarez Other [facility] Other 08-26-2021 15:15-0500 Body mass index (BMI) [Ratio] 51.07 kg/m2 Hong Nevarez Other [facility] Other 08-26-2021 15:15-0500 Body weight 109.91 kg Hong Nevarez Other [facility] Other Encounters Encounter Date Encounter Type Care Provider Facility Start: 03-12-2024 End: 03-12-2024 ambulatory SHAIKH CIRA Not Available Start: 03-07-2024 End: 03-07-2024 ambulatory Ortega R XAVIERL Facility:[id number] Start: 03-02-2024 End: 03-02-2024 ambulatory Ortega R NILL Facility:[facility] Start: 03-02-2024 End: 03-02-2024 Patient encounter procedure Ortega PARKL [facility] [place] Start: 03-01-2024 ambulatory Ortega NILL Facility:[facility] Start: 02-27-2024 End: 02-27-2024 ambulatory SHAIKH CIRA Not Available Start: 01-17-2024 End: 01-17-2024 ambulatory [facility] Start: 12-29-2023 End: 12-29-2023 ambulatory SHAIKH CIRA Not Available Start: 12-27-2023 End: 12-27-2023 ambulatory [facility] Start: 12-26-2023 End: 12-27-2023 ambulatory Miguel Murphy MD Facility:[facility] Start: 12-05-2023 End: 12-06-2023 ambulatory Miguel Murphy MD Facility:[facility] Start: 11-16-2023 End: 11-16-2023 ambulatory Kayley Reeder Facility:[facility] Start: 11-07-2023 End: 11-07-2023 ambulatory SHAIKH CIRA Not Available Start: 10-17-2023 Cristobal Denis MD Work Phone: [facility] Start: 10-17-2023 Cristobal Denis MD Work Phone: [facility] Start: 10-17-2023 End: 10-17-2023 ambulatory SHAIKH CIRA Not Available Start: 10-11-2023 End: 10-11-2023 ambulatory MD Shaikh Denis Work Phone: [facility] Work Phone: Start: 10-11-2023 End: 10-11-2023 Patient encounter procedure MD Shaikh Denis Work Phone: [facility] [place] Work Phone: Start: 09-08-2023 End: 09-08-2023 ambulatory Claire Clement Facility:[facility] Start: 09-08-2023 End: 09-08-2023 ambulatory MD Shaikh Denis Work Phone: [facility] Work Phone: Start: 09-08-2023 End: 09-08-2023 Patient encounter procedure MD Shaikh Denis Work Phone: [facility]-Pacemaker Check Start: 09-06-2023 End: 09-06-2023 ambulatory SHAIKH CIRA Not Available Start: 09-06-2023 Patient encounter procedure Shaikh Cira CUBA Work Phone: [facility] Start: 07-08-2023 End: 07-08-2023 ambulatory [facility] Start: 07-05-2023 End: 07-05-2023 ambulatory [facility] Start: 04-11-2023 End: 04-12-2023 ambulatory Miguel Smallsitis Facility: [facility] Start: 01-31-2023 End: 02-01-2023 ambulatory ANDRIUS GIEDRAITIS Facility:[facility] Start: 01-28-2023 End: 01-29-2023 ambulatory ANDRI GIEDITIS Facility:[facility] Start: 01-10-2023 End: 02-09-2023 ambulatory SHAIKH [...] . Facility:[facility] Start: 05-13-2022 End: 06-12-2022 ambulatory SAHUSHAHEED PAGESILVANA Facility:[facility] Start: 04-20-2022 End: 04-21-2022 ambulatory LUIZ [...] 10-07-2021 End: 10-07-2021 ambulatory Hong Nevarez Other [facility] Other Start: 10-07-2021 Office outpatient visit 15 minutes Hong Nevarez [facility] Start: 08-26-2021 End: 08-26-2021 ambulatory Hong Nevarez Other [facility] Other Start: 08-26-2021 Office outpatient ne w 45 minutes Hong Nevarez [facility] Start: 10-11-2020 End: 10-13-2020 Evaluation and management of inpatient ZANE MAYNOR Facility:[facility] Procedures Date Procedure Procedure Detail Performing Clinician Start: 10-11-2023 XR pre/post mri xray MD Shaikh Denis Work Phone: Start: 10-11-2023 MR lumbar spine wo con MD Shaikh Denis Work Phone: Start: 09-20-2021 Cardiac pacemaker, d evice (physical object) Ortega XAVIERL Comment on above: Dr. Kaur Start: 10-13-2020 INSERT PACE. DUAL CH AM IN CHEST SUBCU/FASCIA, OPEN YANCY MAHAN Start: 10-13-2020 INSERTION OF PACEMAK ER LEAD INTO R VENTRICLE, PERC APPROACH YANCY MAHAN Start: 10-13-2020 INSERTION OF PACEMAK ER LEAD INTO RIGHT ATRIUM, PERC APPROACH YANCY MAHAN Start: 09-12-2017 Colonoscopy Shaikh Dominique eid MD Work Phone: Start: 09-12-2003 History of right tot al knee replacement Ortega PARKL Start: 09-12-2001 History of left tota l knee replacement Ortega PARKL Appendectomy Ortega PARKL Arthroscopy of knee Ortega PARKL Comment on above: 06/2012 Arthroscopy of shoulder Brice parikhankur XAVIERL Comment on above: left shoulder tear r epaired 08/25 Cardiac catheter (ph ysical object) Ortega PARKL Comment on above: 12/21/ mild CAD Colonoscopy Ortega PARKL Comment on above: 2012 repeat 10 years Ligation of fallopian tube M armando XAVIERL Repair of musculoten dinous cuff of shoulder Ortega PARKL Comment on above: right Total abdominal hyst erectomy with bilateral salpingo-oophorectomy Ortega XAVIERL Plan of Treatment Date Care Activity Detail Author Start: 09-12-2027 Screening for malign ant neoplasm of colon [facility] Start: 09-06-2024 Medicare Annual Well ness (AWV) Medicare Annual Wellness (AWV) [facility] Start: 11-07-2023 End: 11-07-2023 Patient encounter procedure 11/07/2023 2:30 PM EST Office Visit [facility] [address] [place] [address] Shaikh Denis MD [address] [place] [id number] [facility] Start: 10-17-2023 End: 10-17-2023 Patient encounter procedure 10/17/2023 10:15 AM EST Office Visit [facility] [address] [place] [address] Shaikh Denis MD [address] [place] [address] Arrived [facility] Comment on above: Arrived Start: 1945 Screening for malign ant neoplasm of colon [facility] Immunizations Immunization Date Immunization Notes Care Provider [facility] 08-25-2023 influenza virus vacc ine, unspecified formulation Ortega ALEXANDER [facility] [place] 07-08-2022 influenza virus vacc ine, unspecified formulation Ortega ALEXANDER [facility] 08-20-2021 influenza virus vacc ine, unspecified formulation Ortega ALEXANDER [facility] 08-20-2021 pneumococcal polysaccharide vaccine, 23 valent Ortega ALEXANDER [facility] 11-18-2020 SARS-CoV-2 (COVID-19 ) mRNA-1273 vaccine Ortega ALEXANDER [facility] 10-20-2020 SARS-CoV-2 (COVID-19 ) mRNA-2030 vaccine Ortega NILL [facility] 08-04-2020 influenza virus vacc ine, unspecified formulation Ortega NILL [facility] 08-04-2020 pneumococcal conjuga te vaccine, 13 valent Ortega NILL [facility] 08-06-2019 influenza virus vacc ine, unspecified formulation Ortega NILL [facility] 07-05-2017 influenza virus vacc ine, unspecified formulation Ortega NILL [facility] 07-05-2017 pneumococcal conjuga te vaccine, 13 valent Ortega NILL [facility] 06-29-2016 influenza virus vacc ine, unspecified formulation Ortega NILL [facility] 06-25-2015 influenza virus vacc ine, unspecified formulation Ortega NILL [facility] 06-12-2015 influenza virus vacc ine, unspecified formulation Ortega NILL [facility] 07-12-2014 influenza virus vacc ine, unspecified formulation Ortega NILL [facility] 08-07-2013 influenza virus vacc ine, unspecified formulation Ortega NILL [facility] Payers Date Payer Category Payer Private Health Insurance [id number] 2023 Self-pay [id number] 2023 Managed Care HMO (unspecified) OSEI FRANZ [id number] 2023-Present [address] [facility] [place] [address] HMO [id number] 2022 Private Health Insurance 2007 Medicare [id number]. [id number]. [id number] 1959 Medicare [id number] 1959 Private Health Insurance [facility] [id number] 1947 Unknown [id number] 2.16.840.1.555383.3.579.2. 647 1947 Unknown [id number] 2.16.840.1.630018.3.579.2. 593 1947 Unknown [id number] 2.16.840.1.366121.3.579.2. 593 1947 Unknown [id number] 2.16.840.1.005283.3.579.2. 593 1947 Unknown [id number] 2.16.840.1.503338.3.579.2. 593 1947 Unknown [id number] 2.16.840.1.274360.3.579.2. 593 1947 Unknown [id number] 2.16.840.1.142292.3.579.2. 593 1947 Unknown [id number] 2.16.840.1.852015.3.579.2. 593 1947 Unknown [id number] 2.16.840.1.845049.3.579.2. 593 1947 Unknown [id number] 2.16.840.1.939829.3.579.2. 593 1947 Unknown [id number] 2.16.840.1.123969.3.579.2. 593 1947 Unknown [id number] 2.16.840.1.382387.3.579.2. 593 1947 Unknown [id number] 2.16.840.1.592753.3.579.2. 593 1947 Unknown [id number] 2.16.840.1.761831.3.579.2. 593 1947 Unknown [id number] 2.16.840.1.997009.3.579.2. 593 1947 Unknown [id number] 2.16.840.1.394423.3.579.2. 593 1947 Unknown [id number] 2.16.840.1.034980.3.579.2. 593 1947 Unknown [id number] 2.16.840.1.831918.3.579.2. 593 1947 Unknown [id number] 2.16.840.1.675990.3.579.2. 593 1947 Unknown [id number] 2.16.840.1.581174.3.579.2. 593 1947 Unknown [id number] 2.16.840.1.225678.3.579.2. 593 1947 Unknown [id number] 2.16.840.1.244547.3.579.2. 593 1947 Unknown [id number] 2.16.840.1.888151.3.579.2. 593 1947 Unknown [id number] 2.16.840.1.991115.3.579.2. 593 1947 Unknown [id number] 2.16.840.1.638145.3.579.2. 593 1947 Unknown [id number] 2.16.840.1.466647.3.579.2. 593 1947 Unknown [id number] 2.16.840.1.404095.3.579.2. 593 1947 Unknown [id number] 2.16.840.1.337505.3.579.2. 196 1947 Unknown [id number] 2.16.840.1.325457.3.579.2. 196 1947 Unknown [id number] 2.16.840.1.761106.3.579.2. 196 1947 Unknown [id number] 2.16.840.1.154504.3.579.2. 196 1947 Unknown [id number] 2.16.840.1.204332.3.579.2. 727 1947 Unknown [id number] 2.16.840.1.870935.3.579.2. 727 1947 Unknown [id number] 2.16.840.1.997147.3.579.2. 1259 1947 Unknown [id number] 2.16.840.1.638516.3.579.2. 1259 1947 Unknown [id number] 2.16.840.1.253380.3.579.2. 1259 1947 Unknown [id number] 2.16.840.1.678763.3.579.2. 1259 1947 Unknown [id number] 2.16.840.1.405937.3.579.2. 1259 1947 Unknown [id number] 2.16.840.1.518982.3.579.2. 1259 Medicare Medicare Outpatient [id number] 1A [id number] Unknown [employer] [place] [id number] Unknown [id number] 2.16.840.1.202041.3.579.2. 531 Unknown [id number] 2.16.840.1.405393.3.579.2. 531 Unknown [id number] 2.16.840.1.057086.3.579.2. 531 Social History Date Type Detail Facility Start: 08-30-2023 End: 09-06-2023 Sex Assigned At [facility] Start: 1945 Sex Assigned At Female F [facility] Start: 08-18-2023 End: 03-02-2024 Tobacco smoking status NHIS Ex-smoker [facility] History of tobacco use Current smoker [facility] History of tobacco use Cigarette Smoker [facility] Start: 09-02-2023 Alcohol intake Not Asked [facility] Start: 08-30-2023 End: 09-06-2023 History of Social function [facility] Within the last year , have you been afraid of your partner or ex-partner? No [facility] How often do you att end gnosticism or jehovah's witness services? Patient refused [facility] Do you belong to any clubs or organizations such as gnosticism groups, unions, fraternal or athletic groups, or [...] At Not on file [facility] Functional Status Date Assessment Result Facility 03-02-2024 Functional Status N/A [facility] [place] Clinical Notes 08-26-2021 to 03-02-2024 Note Date & Type Note Facility 03-02-2024 Note Chief Complaint consultation for anemia HPI Staff 78 year old female presents on consultation from [facility] for anemia. Labs completed yesterday with [...] PSVT, spinal stenosis, cervical radiculopathy; referred from [facility] for anemia, low iron, and positive [...] (paroxysmal supraventricular t (more content not included)... [facility] Comment on above: Result Comment: Elec tronically Signed By: CATHERINE CUBA, Ortega Quinonez\Date and Time Signed: 03/02/24 13:01 EDT 01-17-2024 [...] All other systems reviewed and are negative. [facility] 01-17-2024 Note Cardiovascular Medic [facility] SUBJECTIVE Chief Complaint Patient presents with Atrial Fibrillation Breann Starks is a 78 y.o. female here for follow-up. HPI PMHx: A-fib, atrial tachycardia s/p ablation 2005, sick sinus syndrome s/p PPM 10/2020 dual-chamber [employer], COPD, mild CAD s/p cardiac cath 2010, SHAWANDA noncompliant with mask, and obesity. She has been doing well since last seen. No significant changes. Denies c/o CP, dyspnea, orthopnea, PND, LE edema, dizziness/LH, palpitations, syncope. Patient Active Problem List Diagnosis Disorder of bursae of shoulder region Chronic obstructive lung disease (CMS/HCC) Atherosclerosis of [place] coronary artery of [place] heart without angina pectoris Diaphragmatic hernia Edema [...] Final Monocytes Absolu (more content not included)... [facility] 07-05-2023 Note [facility] Consult Note Reason [...] sick sinus syndrome s/p PPM 10/2020 dual-chamber [employer], COPD, mild CAD s/p cardiac cath [...] could not afford DOAC. Patient underwent dual-chamber [employer] pacemaker placement on 10/13/2020. On subsequent [...] both knees Hypocalcemi (more content not included)... [facility] 10-07-2021 Evaluation note Encounter Date Diagnosis Assessment Notes Sep, LOJA (nonalcoholic steatohepatitis ) (ICD-10 - K75.81) OBTAIN FIBROSURE RESULTS FROM [facility] ON RESULTS PT ENCOURAGED WEIGHT LOSS RTO ONE YEAR WITH LABS ANNUALLY Sep, Unspecified cirrhosis of liver (ICD-10 - K74.60) [facility] Other 12-15-2021 Evaluation note* Encounter Date Diagnosis Assessment Notes Treatment Notes Treatment Clinical Notes Aug, Nonalcoholic steatohepatitis (LOJA) (ICD-10 - K75.81) RTO 6-8 WEEKS Aug, Unspecified cirrhosi s of liver (ICD-10 - K74.60) Aug, Morbid obesity (ICD- 10 - E66.01) [facility] Other Evaluation + Plan note No data available for this section [facility] [place] Evaluation noteNo assessment information available [facility] Work Phone: History general Narrative - [...] Surgical History pacemaker Hospitalization History see above [facility] Other Hospital Discharge instructions No data available for this section [facility] [place] Progress note No data available for this section [facility] [place] Summary Purpose Family History No Family History Records FoundNo Family History Records FoundNo Family History Records FoundNo Family History Records FoundNo Family History Records Found No data available for this section No Family History Records FoundNo Family History Records FoundNo Family History Records Found Advance Directives No Advanced Directives Records Found Advance Directive Response Recorded Date/ Time Advance Directives No May 2:01pm Chief Complaint and Reason for Visit Chief Complaint mri clearance Chief Complaint mri clearance lumbar radiculpathy Additional Source Comments INFORMATION SOURCE (unrecogn ized section and content) DATE CREATED AUTHOR 10/23/2021 [facility] DATE CREATED AUTHOR AUTHOR'S ORGANIZ ATION 01/22/2022 [facility] DATE CREATED AUTHOR AUTHOR'S ORGANIZ ATION 02/18/2023 [facility] DATE CREATED AUTHOR AUTHOR'S ORGANIZ ATION 11/27/2023 [facility] DATE CREATED AUTHOR AUTHOR'S ORGANIZ ATION 01/17/2024 [facility] DATE CREATED AUTHOR AUTHOR'S ORGANIZ ATION 03/08/2024 [facility] DATE CREATED AUTHOR AUTHOR'S ORGANIZ ATION 03/11/2024 [facility] DATE CREATED AUTHOR AUTHOR'S ORGANIZ ATION 03/13/2024 [facility] Specialists EPIC REASON FOR VISIT [...] October 11, 2023 End: October 11, 2023 Electrical Inspector Relationship Specialty Start Date End Date Shaikh [...] BE BASED ON THE PRIMARY CLINICAL RECORDS. [employer] provides no warranty or guarantee of the accuracy or completeness of information in this document.
--- NOTE | 2024-03-14 09:29 | P.CN_ITS ---
Consult Note: HPI Data of Consult Patient: known to practice within the last 3 years Consult date: 11/24/23 Requesting Physician: Claire Clement NP Primary Care Provider: Shaikh Cira MD Consult Narrative Reason for consult: f/u Narrative: Breann Starks a pleasant 77 year old female presents for evaluation and manag ement of chronic low back pain with radiculopathy and NC. MRI of lumbar spine consistent with degenerative changes and lumbar stenosis. Patient following with NS who recommended ESIs prior to surgical intervention. Pt has failed PT/HEP greater than 6 weeks and conservative medications. Previously underwent bilateral L4/5 TFESI and bilateral L5/S1 TFESI with >50% improvement greater than 3 months. Pain today 0/10, pain increases to 8/10 with standing walking and activity. cc:: CC: Claire Clement NP Review of Systems ROS Status of ROS 10 or more systems reviewed and unremark able except as noted in history and below Musculoskeletal Reports: back pain and joint pain PFSH [facility] Medical History (Updated 03/14/24 @ 09:37 by Claire Clement NP) Arthritis ?M19.90 - Unspecified osteoarthritis, unspecified site (ICD-10) Chronic obstructive pulmonary disease ?J44.9 - Chronic obstructive pulmonary disease, unspecified (ICD-10) Peptic ulcer ?K27.9 - Peptic ulcer, site unspecified, unspecified as acute or chronic, without hemorrhage or perforation (ICD-10) Dyspnea on exertion ?R06.09 - Other forms of dyspnea (ICD-10) Anemia ?D64.9 - Anemia, unspecified (ICD-10) Hypertension ?I10 - Essential (primary) hypertension (ICD-10) Extremity edema ?R60.0 - Localized edema (ICD-10) Congestive heart failure ?I50.9 - Heart failure, unspecified (ICD-10) Atrial fibrillation ?I48.91 - Unspecified atrial fibrillation (ICD-10) Shoulder pain ?M25.519 - Pain in unspecified shoulder (ICD-10) Fatty liver ?K76.0 - Fatty (change of) liver, not elsewhere classified (ICD-10) History of shingles ?Z86.19 - Personal history of other infectious and parasitic diseases (ICD- 10) Osteoarthritis ?M19.90 - Unspecified osteoarthritis, unspecified site (ICD-10) Pacemaker ?Z95.0 - Presence of cardiac pacemaker (ICD-10) Hiatal hernia ?K44.9 - Diaphragmatic hernia without obstruction or gangrene (ICD-10) Low back pain ?M54.50 - Low back pain, unspecified (ICD-10) Irregular heart beat ?I49.9 - Cardiac arrhythmia, unspecified (ICD-10) Surgical History History of shoulder replacement ?Z96.619 - Presence of unspecified artificial shoulder joint (ICD-10) S/P rotator cuff repair ?Z98.890 - Other specified postprocedural states (ICD-10) History of colonoscopy ?Z98.890 - Other specified postprocedural states (ICD-10) S/P YANELI-BSO ?Z90.710 - Acquired absence of both cervix and uterus (ICD-10) ?Z90.722 - Acquired absence of ovaries, bilateral (ICD-10) ?Z90.79 - Acquired absence of other genital organ(s) (ICD-10) H/O cardiac catheterization ?Z98.890 - Other specified postprocedural states (ICD-10) H/O arthroscopy of shoulder ?Z98.890 - Other specified postprocedural states (ICD-10) H/O arthroscopy of knee ?Z98.890 - Other specified postprocedural states (ICD-10) History of appendectomy ?Z90.49 - Acquired absence of other specified parts of digestive tract (ICD- 10) History of total knee arthroplasty ?Z96.659 - Presence of unspecified artificial knee joint (ICD-10) Social History Within the past year, how often did you have a drink containing alcohol: monthly or less Smoking status: Former smoker Non-prescribed substance use: denies use Previous occupational history: retired Highest level of school completed/degree received: high school graduate Meds Home Medications and Allergies Home Medications ?Medication ?Instructions ?Recorded ?Confirmed ?Type cholecalciferol (vitamin D3) 125 5,000 unit PO DAILY 02/16/23 03/07/24 History mcg (5,000 unit) tablet (Vitamin D3) flecainide 100 mg tablet 100 mg PO Q12H 02/16/23 03/07/24 History omeprazole 40 mg capsule,delayed 40 mg PO DAILY 02/16/23 03/07/24 History release spironolactone 25 mg tablet 25 mg PO DAILY 02/16/23 03/07/24 History (Aldactone) verapamil 180 mg tablet,extended 180 mg PO Q12H 02/16/23 03/07/24 History release (Calan SR) apixaban 5 mg tablet (Eliquis) 5 mg PO BID 05/11/23 03/07/24 History baclofen 10 mg tablet 10 mg PO TID #90 tabs 02/15/24 03/07/24 Rx hydrocodone 5 mg-acetaminophen 325 1 tab PO BID #6 tabs 02/15/24 03/07/24 Rx mg tablet furosemide 40 mg tablet 40 mg PO DAILY 03/01/24 03/07/24 History tramadol 50 mg tablet 50 mg PO QPM 03/06/24 03/07/24 History Allergies Allergy/AdvReac Type Severity Reaction Status Date / Time No Known Drug Allergies Allergy Verified 03/06/24 11:32 Exam Constitutional Documenting provider has reviewed patient's vital signs: yes Common normals: no apparent distress, oriented x3, healthy appearing, alert and well nourished General appearance: cooperative Nutritional appearance: overweight HENMT Common normals: normocephalic, hearing grossly normal bilaterally and moist oral mucous membranes Head and scalp: normocephalic Eye Common normals: PERRL Pupil: PERRL Neck & C-Spine Common normals: full ROM General: normal visual inspection Chest Common normals: inspection of chest normal Respiratory Common normals: normal respiratory effort, no retractions and no use of accessory muscles Back & Pelvis Common normals: no CVA tenderness, thoracic and lumbar spine normal to inspection, no thoracic nor lumbar tenderness and thoraco-lumbar ROM normal Lumbar spine/lower back: normal to inspection, lumbar ROM normal and straight leg raise positive left Sacroiliac joints: SI joint(s) abnormal Other: left SIJ positive letitia(patricks), gaenslens, thigh thrust, compression test decreased sensation in left L4,5,S1 pattern strength 4/5 in LLE Extremity Common normals: normal to inspection and full ROM Neuro Common normals: oriented x3, CN's II-XII intact bilaterally, moves all extremities, no focal motor deficits, no sensory deficits noted and deep tendon reflexes 2+ bilaterally Sensorium/orientation: alert Speech: speech normal Gait (neuro): normal gait Motor exam: no movement abnormalities noted and strength abnormal Other: sensation intact BUE BLE Psych Common normals: mental status grossly normal, thought process normal, cooperative, affect normal, speech normal and activity/motor behavior normal Speech: normal speech Thought process: normal thought process Results Additional Findings Additional findings: If on a controlled substance or opioids, I have checked an [place]ARRS report on this patient and there are no aberrancies noted in the prescribing history.??If on a controlled substance or opioid a drug screen was completed and reviewed within the last year, and if there has not been a drug screen completed we ordered one today to monitor higher risk, state monitored pain medication use. As part of providing excellent, safe, comprehensive care, the following was completed at our patient's visit: 1. A medication reconciliation and review to ensure accurate knowledge of current/active medications, including asking our patients to inform us about any [id number] medications or herbal remedies/nutritional supplements/alternative remedies. 2. A review to specifically ensure our patients have had annual screening for screening for depression, screening for tobacco use, and screening for unhealthy alcohol use. For concerning screenings had a discussion with the patient, provided patient education, and recommended follow-up with primary care provider when appropriate. If patient noted with a risk of falling, they received education on strength, gait, and balance training to prevent future risk of falling. Assessment and Plan Assessment and Plan (1) Lumbar stenosis with neurogenic claudication: (2) Sacroiliitis: Plan left L4-5 L5-S1 TFESI under fluoroscopy followed by left SIJ injection under fluoroscopy continue medications through PCP, finding benefit to norco 5-325mg TID PRN and baclofen 10mg TID PRN f/u after injections
== END 2024-03-14 08:50 | disposition home or self-care (01) ==
LOC: PM 08:50
PROVIDERS: PCP Internal Medicine; Visit Provider Nurse Practitioner
DX: M48.062 Spinal stenosis, lumbar region with neurogenic claudication (principal); M46.1 Sacroiliitis, not elsewhere classified
CPT/HCPCS: G0463

== ENCOUNTER 2024-03-21 14:03 | Outpatient (OUT) | payer MEDICARE, SELFPAY ==
[2024-03-21 14:17] LABS: Basophils Absolute Auto 0.1 10^3/uL (0.0-0.1); Basophils Percent Auto 0.5 % (0.2-2.0); Eosinophils Absolute Auto 0.4 10^3/uL (0.0-0.7); Eosinophils Percent Auto 3.7 % (0.9-7.0); Hematocrit 27.9 % (36.0-48.0); Hemoglobin 8.1 g/dL (12.0-16.0); Immature Granulocytes Abs Auto 0.03 10^3/uL (0.00-0.03); Immature Granulocytes Pct Auto 0.3 % (0.0-0.5); Lymphocytes Absolute Auto 2.4 10^3/uL (1.2-3.8); Lymphocytes Percent Auto 22.6 % (20.5-60.0); Mean Corpuscular Hemoglobin 21.9 pg (26.7-34.0); Mean Corpuscular Volume 75.4 fL (81.0-99.0); Mean Platelet Volume 8.5 fL (9.5-13.5); Monocytes Absolute Auto 0.9 10^3/uL (0.3-0.8); Monocytes Percent Auto 8.7 % (1.7-12.0); Neutrophils Absolute Auto 6.9 10^3/uL (1.4-6.5); Neutrophils Percent Auto 64.2 % (43.0-75.0); Platelet Count 350 10^3/uL (150-450); Red Cell Distribution Width 19.4 % (11.0-15.0); White Blood Count 10.8 10^3/uL (4.0-11.0)
[2024-03-21 14:33] LABS: Anion Gap 10.3; BUN Creatinine Ratio 19.8; Calcium 8.7 mg/dL (8.5-10.1); Carbon Dioxide 30.6 mmol/L (21.0-32.0); Chloride 103 mmol/L (98-107); Estimated GFR (African America >60 (>=60); Estimated GFR (Non-African Ame >60 (>=60); Glucose 105 mg/dL (74-106); Potassium 3.9 mmol/L (3.5-5.1); Sodium 140 mmol/L (136-145)
== END 2024-03-21 14:04 | disposition home or self-care (01) ==
LOC: LAB 14:04
PROVIDERS: PCP Internal Medicine; Visit Provider Internal Medicine
DX: I50.33 Acute on chronic diastolic (congestive) heart failure (principal); D50.0 Iron deficiency anemia secondary to blood loss (chronic)
CPT/HCPCS: 36415; 80048; 85025

== ENCOUNTER 2024-04-02 08:55 | Day surgery (SDC) | payer MEDICARE, SELFPAY ==
--- OUTSIDE RECORDS SUMMARY | 2024-04-02 09:14 | XMS_ITS | CCD ---
Author Organization [facility] Care Team Providers Care Green [employer] Marketing Analyst Name Role Phone ZANE MCGUIRE Admitting Unavailable YANCY MAHAN Referring Unavailable LUISANA FISHER Primary Care Unavailable ZANE MCGUIRE Attending Unavailable YANCY MAHAN Surgeon Unavailable LA Procedure Practitioner Unavailab Hong Adler Unavailable FISHER ., DR LUISANA Herbert Primary Care Unavailable FISHER ., DR LUISANA Herbert Admitting Unavailable FISHER ., DR LUISANA Herbert Attending Unavailable FISHER ., DR LUISANA Herbert Consulting Unavailable FISHER ., DR LUISANA Herbert Primary Care Unavailable FAWMADHURI, CAMACHO H Attending Unavailable FAWWAD, CAMACHO H Admitting Unavailable FAWWAD, CAMACHO H Admitting Unavailable FAWWAD, H Attending Unavailable FISHER ., DR LUISANA [...] ., DR LUISANA Herbert Primary Care Unavailable ZIEBAMAURY, DR PAULA Bishop Consulting Unavailable SAMSA ., [...] Admitting Unavailable RIVER ., KAYLEY Attending Unavailable TEMPLE BAR MARINA, DR HONG Morgan Consulting Unavailable FISHER ., DR LUISANA Herbert Primary Care Unavailable GRECHNY ., DANIELLE SHAIKH Consulting UnavailSALOME Mondragon Consulting Unavailable RIVER ., KAYLEY Consulting Unavailable JBARA YASER Consulting Unavailable SAMSA ., LUIZ Admitting [...] DR LUISANA Herbert Primary Care Unavailable FASILVANA, SHAIKH Kymberly Attending Unavailable CIRA, H Admitting Unavailable SAMSA ., LUIZ Admitting Unavailable SAMSA ., LUIZ Attending Unavailable SAMSA ., LUIZ Consulting Unavailable FISHER ., DR LUISANA Herbert Primary Care Unavailable THANG Clement Attending Provider MD Cira Camacho Primary Care Provider THANG Clement Attending Provider [phone] Cira CUBA [facility] Primary Care Provider [phone] Gibandar CUBA, Andrius Sainz Attending Unavailable Giedraitis , Andrius Vytautwilma Attending Unavailable Giedraitis , Andrius Vytautwilma Attending Unavailable Giedraitis , Andrius Vytjoselito Attending Unavailable YANCY MAHAN Referring Unavailable YANCY MAHAN Attending Unavailable YANCY MAHAN Referring Unavailable NICANOR CANNON Attending Unavailable Ortega ALEXANDER Attending Unavailable SHAIKH DENIS Referring Unavailable Ortega ALEXANDER Attending Unavailable SHAIKH DENIS Attending Unavailable SHAIKH DENIS Attending Unavailable SHAIKH DENIS Attending Unavailable SHAIKH DENIS Attending Unavailable SHAIKH DENIS Attending Unavailable SHAIKH DENIS Attending Unavailable MD Cira [facility] Primary Care Provider [phone] DO James Jones Attending Provider Claire Clement Admitting Unavailable Claire Clement Attending Unavailable Shaikh Denis Primary Care Unavailable Kayley Reeder Admitting Unavailable Kayley Reeder Attending Unavailable Shaikh Denis Primary [facility] Unavailable Claire Clement Admitting Unavailable Claire Clement Attending Unavailable Shaikh Denis Primary [facility] Unavailable James Jones Admitting Unavailable James Jones Attending Unavailable Shaikh Denis Primary [facility] Unavailable Allergies Allergy Classification Reported Allergen(s) Allergy Type Date of Onset Reaction(s) Facility NSAIDs (1 source) meloxicam; Translations: [Mobic] Drug Allergy [facility] Repository Unclassified (1 source) No Known Medication Allergies; Translations: [No Known Medication Allergies] Propensity to adverse reactions (disorder) [facility] Repository (1 source) novacaine; Translations: [novacaine] Propensity to adverse reactions (disorder) 2 [facility] Repository (2 sources) NSAIDs Propensity to adverse reactions HEART ISSUES [place] [facility] Other (2 sources) Adhesive agent; Translations: [adhesive] Allergy to substance 4 Unknown Reaction [facility] (2 sources) NSAIDS (Non-Steroidal Anti-Inflamma; Translations: [NSAIDS (Non-Steroidal Anti-Inflamma] Allergy to substance 4 HEART ISSUES [facility] Medications Current Medications Medication Drug Class(es) Dates Sig (Normalized) Sig (Original) acetaminophen 325 mg / HYDROcodone bitartrate 5 mg oral tablet (1 source) Opioid Agonist Start: 03-01-2024 take 1 tablet by mouth twice daily acetaminophen-hyd rocodone 325 mg-5 mg oral tablet 1 tab(s), Oral, BID, Refill(s) 0 Start Date: 03/01/24 Status: Ordered apixaban 5 mg oral tablet (3 sources) Factor Xa Inhibitor Start: 11-16-2023 take 1 tablet by mouth twice daily [...] tablet (1 source) gamma-Aminobutyric Acid-ergic Agonist Start: 2023 take 1 tablet by mouth three times [...] Centrum Silver (2 sources) Centrum Silver O daktoa *please review for potential _update for e-prescription and drug interaction check* Active Centrum Women 50 Plus Multigummies oral tablet, chewable (1 source) Start: 2022 Centrum Women 50 Plus Multigummies oral tablet, chewable Refill(s) 0 Start Date: 01/11/23 Status: Ordered cholecalciferol 0.125 mg oral tablet (1 source) Vitamin D Start: 2023 Cholecalciferol (Vitamin D3) Active 5000 UNIT PO November 16, 2023 1:00am flecainide acetate 100 mg oral tablet (5 sources) Antiarrhythmic Start: 2022 Flecainide Active 100 MG PO November 16, 2023 1:00am take 1 tablet by mouth once gabi [...] 1 tablet Orally Once a day Active Lidocaine (2 sources) Antiarrhythmic, Amide Local Anesthetic Start: 11-18-2023 Lidocaine Active 1 APPLIC TOPICAL Daily November 18, 2023 1:00am Start: 11-16-2023 End: 11-18-2023 apply 1 dose topically once daily Lidocaine Discontinued 1 PATCH TOPICAL Daily November 16, 2023 1:00am November 18, 2023 10:08am leave on most painful area for up to 12 hrs Multiple Vitamins-Minerals (CENTRUM SILVER 50+WOMEN PO) (1 source) take 1 tablet by mouth in the morning Multiple Vitamins-Minerals (CENTRUM SILVER 50+WOMEN PO) Take 1 tablet by mouth in the morning. 0 Active omeprazole 40 mg delayed release oral capsule (5 sources) Proton Pump Inhibitor Start: 023 Omeprazole Active 40 MG PO November 16, 2023 1:00am take 1 capsule by mo [facility] every twenty-four hours Omeprazole 40 MG 1 capsule Orally Once a day Active potassium chloride 10 meq extended release oral capsule (2 sources) take 1 capsule by mouth every twenty-four hours Potassium Chloride 10 MEQ 1 capsule with food Orally Once a day Active spironolactone 25 mg oral tablet (3 sources) Aldosterone Antagonist Start: 024 take 1 tablet by mouth once daily spironolactone 25 mg Tab 25 mg = 1 tab(s), Oral, Daily, Refills(s) 0 Start Date: 03/01/24 Status: Ordered take 1 tablet [facility] spironolactone (Aldactone) 25 MG tablet Take 25 mg by mouth in the morning. 0 Active 24 hr verapamil hydrochloride 180 mg extended release oral capsule (5 sources) Calcium Channel Ozzy Start: 03-01-2024 take 1 capsule by mouth once daily verapamil 180 mg Cap-ER 180 mg = 1 cap(s), Oral, Daily, Refills(s) 0 Start Date: 03/01/24 Status: Ordered Start: 11-16-2023 Verapamil Acti ve MG PO November 16, 2023 1:00am Start: 02-14-2023 End: 02-14-2024 take 1 capsule by mouth every twenty-four hours in the morning verapamil ER (Verelan) 180 MG 24 hr capsule Take 360 mg by mouth in the morning. 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] Onset: 3 Episodic Other aftercare (1 source) Other intermodal customer service (current) drug therapy; Translations: [OTH PRISON CURRENT [...] Spondylosis; intervertebral disc disorders; other back problems (13 sources) Cervical spondylosis; Translations: [Spondylosis without myelopathy or radiculopathy, cervical region] Onset: 3 Chronic Unclassified (2 sources) LOW BACK PAIN, UNSPECIFIED; [...] Translations: [Edema, unspecified] Onset: 01-12-2012 09-06-2023 Episodic Spondylosis; intervertebral disc disorders; other back problems (9 sources) Cervical radiculopathy; Translations: [Radiculopathy, cervical region] Onset: 03-01-2023 09-06-2023 Episodic Superficial injury; contusion (2 sources) Contusion of shoulder region; Translations: [Contusion of left shoulder, initial encounter] Episodic Unclassified (1 source) LOW BACK PAIN, UNSPECIFIED; Translations: [LOW BACK PAIN, UNSPECIFIED] Onset: 01-28-2023 Unclassified (1 source) COUGH, UNSPECIFIED; Translations: [COUGH, UNSPECIFIED] Onset: 03-30-2022 Results Test Name Value Interpretation Reference Range Facility Lab Reportson 03-07-2024 Lab Reports [id number] #1.00TIFF [facility] 36on 03-06-2024 36 Echo from 03/05/2024 [...] to her pharmacy. BMP order faxed to [facility]. Breann verbalized understanding. [facility] Consent for Procedure/Surger yon 03-05-2024 Consent for Procedure/Surgery [id number] #1.00TIFF [facility] Ambulatory Visit Summaryon 0 03-02-2024 Ambulatory Visit Summary BREANN STARKS :1945 Visit Date:03/02/2024 Ambulatory Visit Instructions Your Care Team Attending Physician - CATHERINE CUBA, Ortega Bishop Primary Care Physician - Barbara Dai Referring Physician - CIRA CUBA, This Is Your Medications List Contact prescribing [...] for choosing us for your care. Normal [facility] ED Note-Physicianon 03-02-20 24 ED Note-Physician [id number]# 1.00TIFF [facility] Insurance Correspondenceon 0 03-02-2024 Insurance Correspondence [id number] 7#1.00TIFF [facility] Lab Reportson 03-02-2024 Lab Reports [id number] #1.00TIFF [facility] 36on 01-25-2024 36 Patient called stating ever since her device was adjusted last month she's had this weird feeling in her throat. I called Sony Asif from [employer] and he told me this feeling she's having should not be from her device. Patient informed. I suggested she see PCP for this. She verbalized understanding. Normal [facility] Office Visiton 01-17-2024 Follow-up visit [id number] Breann Starks 1945 F Date Provider Department Center 01/17/2024 NICANOR REGAN CARD [facility] Family History Adopted: Yes Family history unknown: Yes Family Status - Relation Status Age at Mother Father Level of Service:48803 [place] OFFICE/OUTPATIENT ESTABLISHED MOD MDM 30 MIN Reason for Visit and Comments: Atrial Fibrillation [80] Normal [facility] XR lumbar spine 6V w bending on 11-16-2023 XR lumbar spine 6V w bending [facility] Main [address] [address] XRay Report Signed Patient: Breann Starks MR#: [id number] 171 : 1945 Acct:[id number] Age/Sex: 77 / F ADM Date: 11/16/23 Loc: XD Room: Type: [facility] Attending Dr: Kayley PASACLC Copies to: THANG Calvert Ordering Provider: THANG [...] Benton Jr., D.O.11/16/2023 4:37 PM Dictation Location: [place] [address] Transcribed By: [facility] 11/16/23 163 Dictated By: Francisco J Benton Jr, DO 11/16/23 163 Signed By: 11/16/23 1637 Normal [facility] MR lumbar spine wo marii MR lumbar spine wo con [facility] [place] [address] XRay Report Signed Patient: Breann Starks MR#: [id number] 171 : 1945 Acct:[id number] Age/Sex: 77 / F ADM Date: 10/11/23 Loc: MR Room: Type: [facility] Attending Dr: Claire DESIR Copies to: THANG Porter Ordering Provider: THANG Porter Date of Service: 10/11/23 MR/MR lumbar spine wo con: LUMBAR RADICULPATHY ([id number]) XR/XR pre/post mri xray: LUMBAR RADICULPATHY CLINICAL [...] Eleanor Reece M.D.10/11/2023 4:10 PM Dictation Location: RADIO--12 Transcribed By: [facility] 10/11/23 1610 Dictated By: Eleanor Reece MD 10/11/23 1133 Signed By: 10/11/23 1610 Normal [facility] Office Visiton 07-05-2023 Follow-up visit [id number] Breann Starks 1945 F Date Provider Department Center 07/05/2023 YANCY IVERSON [facility] Family History Adopted: Yes Family history unknown: Yes Family Status - Relation Status Age at Mother Father Level of Service:07194 [place] OFFICE/OUTPATIENT ESTABLISHED LOW MDM 20-29 MIN Normal [facility] XR LSPINE W_OBLS AND FLEX_EX [...] by: PAULA DELGADO Date: 2023-01-31 11:34 Normal [facility] LIPID PROFILEon 12-16-2022 CHOL-HDL RATIO NORM SEE BELOW Normal [facility] Comment on above: Result Comment: 3.3 - 4.4 LOW RISK 4.4 - 7.1 AVERAGE RISK 7.1 - 11.0 MODERATE RISK >11.0 HIGH RISK Performed By: #### L IPID ####[facility] [address] [place] [address]Dr. Erasmo Smith Cholesterol [Mass/Vol] 105 mg/dL Normal <=200 [facility] Comment on above: Performed By: #### L IPID ####[facility] [address] [place] [id number]. Erasmo Smith Cholesterol in HDL [Mass/Vol] 48 mg/dL Normal 40-60 [facility] Comment on above: Performed By: #### L IPID ####[facility] [address] [place] [address]Dr. Erasmo Smith Cholesterol in LDL [Mass/Vol] 48.2 mg/dL Normal [facility] Comment on above: Performed By: #### L IPID ####[facility] [address] [place] [address]Dr. Erasmo Smith Cholesterol.total/Chol esterol in HDL [Mass ratio] 2.2 {ratio} Normal [facility] Comment on above: Performed By: #### L IPID ####[facility] [address] [place] [address]Dr. Erasmo Smith HDL NORMAL > or = 60 mg/dl - LOW CARDIOVASCULAR RISK <40 mg/dl - HIGH CARDIOVASCULAR RISK Normal [facility] Comment on above: Performed By: #### L IPID ####[facility] [address] [place] [address]Dr. Erasmo Smith LDL CALC NORMAL SEE BELOW Normal [facility] Comment on above: Result Comment: <100 mg/dl OPTIMAL 100 - 129 mg/dl NEAR OR ABOVE OPTIMAL 130 - 159 mg/dl BORDERLINE HIGH 160 - 189 mg/dl HIGH >190 mg/dl VERY HIGH Performed By: #### L IPID ####[facility] [address]plekw[address] [place] [address]Dr. Erasmo Smith Triglyceride [Mass/Vol] 44 mg/dL Normal <=150 [facility] Comment on above: Performed By: #### L IPID ####[facility] [address] [place] [address]Dr. Erasmo Smith VLDL CALC 8.8 mg/dL Normal [facility] Comment on above: Performed By: #### L IPID ####[facility] [address] [place] [address]Dr. Erasmo Smith CULTURE BLOODon 12-04-2022 Microscopic examination [...] Trimethoprim/Sulfame thoxazole <=20 S F Normal [facility] Comment on above: Performed By: #### B LDCX1 ####[facility] [address] [place], [place] [address]Dr. Erasmo Smith BNPon 12-03-2022 Natriuretic peptide B (Bld) [Mass/Vol] 413.0 pg/mL Normal <=1,800.0 [facility] Comment on above: Performed By: #### B FINANCIAL PROFESSIONAL #### [facility] [address] [place] [address] Dr. Erasmo Smith CBC AUTO DIFFon 12-03-2022 BASO # 0.0 103/ul Normal 0.0-0.1 [facility] Comment on above: Performed By: #### C BC ####[facility] [address] [place] [address]DrMeena Smith Basophils/100 WBC (Bld) 0.2 % Normal 0.2-2.0 [facility] Comment on above: Performed By: #### C BC ####[facility] [address] [place], [place] [address]DrMeena Smith EO # 0.4 103/ul Normal 0.0-0.7 [facility] Comment on above: Performed By: #### C BC ####[facility] [address] [place] [address]Dr. Erasmo Smith Eosinophils/100 WBC (Bld) 2.1 % Normal 0.9-7.0 [facility] Comment on above: Performed By: #### C BC ####[facility] M[address] [place], [place] [address]Dr. Erasmo Smith Erythrocyte distribution width (RBC) [Ratio] 17.2 % Critically high 11.0-15.0 [facility] Comment on above: Performed By: #### C BC ####[facility] [address] [place], [place] [address]Dr. Erasmo Smith Hematocrit (Bld) [Volume fraction] 29.2 % Critically low 36.0-48.0 [facility] Comment on above: Performed By: #### C BC ####[facility] [address] [place], [place] [address]Dr. Erasmo Smith Hemoglobin (Bld) [Mass/Vol] 9.5 g/dL Critically low 12.0-16.0 [facility] Comment on above: Performed By: #### C BC ####[facility] [address] [place], [place] [address]Dr. Erasmo Smith IG # 0.13 10e3/ul Critically high 0.00-0.03 [facility] Comment on above: Performed By: #### C BC ####[facility] [address] [place], [place] [address]Dr. Ersamo Smith IG % 0.8 % Critically high 0.0-0.5 [facility] Comment on above: Performed By: #### C BC ####[facility] [address] [place], [place] [address]Dr. Erasmo Smith LYMPH # 1.8 103/ul Normal 1.2-3.8 [facility] Comment on above: Performed By: #### C BC ####[facility] [address] [place], [place] [address]Dr. Erasmo Smith Lymphocytes/100 WBC (Bld) 10.3 % Critically low 20.5-60.0 [facility] Comment on above: Performed By: #### C BC ####[facility] [address] [place] [address]Dr. Erasmo Smith MANUAL DIFF REQ NO Normal [facility] Comment on above: Performed By: #### C BC ####[facility] [address] [place] [address]Dr. Erasmo Smith MCH (RBC) [Entitic mass] 25.7 pg Critically low 26.7-34.0 [facility] Comment on above: Performed By: #### C BC ####[facility] [address] [place] [address]Dr. Erasmo Smith MCHC (RBC) [Mass/Vol] 32.5 g/dL Normal 29.9-35.2 [facility] Comment on above: Performed By: #### C BC ####[facility] [address] [place] [address]Dr. Heavenean Smith MCV (RBC) [Entitic vol] 79.1 fL Critically low 81.0-99.0 [facility] Comment on above: Performed By: #### C BC ####[facility] [address] [place] [address]Dr. Erasmo Luis MONO # 1.5 103/ul Critically high 0.3-0.8 [facility] Comment on above: Performed By: #### C BC ####[facility] [address] [place], [place] [address]Dr. Erasmo Smith Monocytes/100 WBC (Bld) 8.7 % Normal 1.7-12.0 [facility] Comment on above: Performed By: #### C BC ####[facility] [address] [place] [address]Dr. Heavenean Luis NEUT # 13.4 103/ul Critically high 1.4-6.5 [facility] Comment on above: Performed By: #### C BC ####[facility] [address] [place], [place] [address]Dr. Erasmo Smith Neutrophils/100 WBC (Bld) 77.9 % Critically high 43.0-75.0 [facility] Comment on above: Performed By: #### C BC ####[facility] [address] [place], [place] [address]Ne. Erasmo Smith Platelet mean volume (Bld) [Entitic vol] 9.3 fL Critically low 9.5-13.5 [facility] Comment on above: Performed By: #### C BC ####[facility] [address] [place], [place] [address]Ir. Erasmo Smith PLT 205 103/ul Normal 150-450 [facility] Comment on above: Performed By: #### C BC ####[facility] [address] [place], [place] [address]Lh. Erasmo Smith RBC 3.69 106/ul Critically low 4.20-5.40 [facility] Comment on above: Performed By: #### C BC ####[facility] [address] [place] [address]Dr. Erasmo Smith WBC 17.2 103/ul Critically high 4.0-11.0 [facility] Comment on above: Performed By: #### C BC ####[facility] [address] [place] [address]DrMeena Smith MAGNESIUMon 12-03-2022 Magnesium [Mass/Vol] 1.9 mg/dL Normal 1.8-2.4 [facility] Comment on above: Performed By: #### B FINANCIAL PROFESSIONAL #### [facility] [address] [place] [address] [address] Erasmo Smith PROF 14(COMP METB)on 023 Albumin [Mass/Vol] 2.6 g/dL Critically low 3.4-5.0 [facility] Comment on above: Performed By: #### B FINANCIAL PROFESSIONAL #### [facility] [address] [place] [address] [address] Erasmo Smith Albumin/Globulin [Mass ratio] 0.6 {ratio} Normal [facility] Comment on above: Performed By: #### B FINANCIAL PROFESSIONAL #### [facility] [address] [place] [address] [address] Erasmo Smith ALP [Catalytic activity/Vol] 123 U/L Critically high 46-116 [facility] Comment on above: Performed By: #### B FINANCIAL PROFESSIONAL #### [facility] [address] [place] [address] [address] Erasmo Smith ALT [Catalytic activity/Vol] 28 U/L Normal 14-59 [facility] Comment on above: Performed By: #### B FINANCIAL PROFESSIONAL #### [facility] [address] [place] [address] [address] Erasmo Smith Anion gap [Moles/Vol] 9.4 mmol/L Normal [facility] Comment on above: Performed By: #### B FINANCIAL PROFESSIONAL #### [facility] [address] [place] [address] [address] Erasmo Smith AST [Catalytic activity/Vol] 21 U/L Normal 15-37 [facility] Comment on above: Performed By: #### B FINANCIAL PROFESSIONAL #### [facility] [address] [place] [address] Dr. Erasmo Smith Bilirubin [Mass/Vol] 0.3 mg/dL Normal 0.2-1.0 [facility] Comment on above: Performed By: #### B FINANCIAL PROFESSIONAL #### [facility] [address] [place] [address] Dr. Erasmo Smith Calcium [Mass/Vol] 8.3 mg/dL Critically low 8.5-10.1 [facility] Comment on above: Performed By: #### B FINANCIAL PROFESSIONAL #### [facility] [address] [place] [address] Dr. Erasmo Smith Chloride [Moles/Vol] 105 mmol/L Normal 98-107 [facility] Comment on above: Performed By: #### B FINANCIAL PROFESSIONAL #### [facility] [address] [place] [address] Dr. Erasmo Smith CO2 [Moles/Vol] 27.1 mmol/L Normal 21.0-32.0 [facility] Comment on above: Performed By: #### B FINANCIAL PROFESSIONAL #### [facility] [address] [place] [address] Dr. Erasmo Smith Creatinine [Mass/Vol] 0.55 mg/dL Normal 0.55-1.02 [facility] Comment on above: Performed By: #### B FINANCIAL PROFESSIONAL #### [facility] [address] [place] [address] Dr. Erasmo Smith EGFR-AF NAURUAN >60 Normal >=60 [facility] Comment on above: Performed By: #### B FINANCIAL PROFESSIONAL #### [facility] [address] [place] [address] Dr. Erasmo Smith EGFR-NON AF NAURUAN >60 Normal >=60 [facility] Comment on above: Performed By: #### B FINANCIAL PROFESSIONAL #### [facility] [address] [place] [address] [address] Erasmo Smith Globulin (S) [Mass/Vol] 4.0 g/dL Normal [facility] Comment on above: Performed By: #### B FINANCIAL PROFESSIONAL #### [facility] [address] [place] [address] Dr. Erasmo Smith Glucose [Mass/Vol] 132 mg/dL Critically high 74-106 [facility] Comment on above: Performed By: #### B FINANCIAL PROFESSIONAL #### [facility] [address] [place] [address] Dr. Erasmo Smith Potassium [Moles/Vol] 3.5 mmol/L Normal 3.5-5.1 [facility] Comment on above: Performed By: #### B FINANCIAL PROFESSIONAL #### [facility] [address] [place] [address] Dr. Erasmo Smith Protein [Mass/Vol] 6.6 g/dL Normal 6.4-8.[address] [facility] Comment on above: Performed By: #### B FINANCIAL PROFESSIONAL #### [facility] [address] [place] [address] Dr. Erasmo Smith Sodium [Moles/Vol] 138 mmol/L Normal 136-145 [facility] Comment on above: Performed By: #### B FINANCIAL PROFESSIONAL #### [facility] [address] [place] [address] Dr. Erasmo Smith Urea nitrogen [Mass/Vol] 24.0 mg/dL Critically high 7.0-18.0 [facility] Comment on above: Performed By: #### B FINANCIAL PROFESSIONAL #### [facility] [address] [place] [address] Dr. Erasmo Smith Urea nitrogen/Creatinine [Mass ratio] 43.6 mg/mg Normal [facility] Comment on above: Performed By: #### B FINANCIAL PROFESSIONAL #### [facility] [address] [address] [address] Erasmo Smith PROTIMEon 12-03-2022 INR Coag (PPP) [Relative time] 4.41 {INR} Critically high [facility] Comment on above: Performed By: #### C MREP #### [facility] [address] [address] [address] Erasmo Smith INR GUIDELINES SEE BELOW Normal [facility] Comment on above: Result Comment: ABNER RED INR: 2.0 - 3.0 CONDITIONS NOT LISTED BELOW 2.5 - 3.5 FOR PROSTHETIC HEART VALVE REPLACEMENT 2.5 - 3.5 RECURRENT THROMBOSIS Performed By: #### C MREP #### [facility] [address] [address] [address] Erasmo Smith PT Coag (PPP) [Time] 43.0 s Critically high 9.0-11.6 [facility] Comment on above: Performed By: #### C MREP #### [facility] [address] [address] [address] Erasmo Smith BLOOD CULTURE ID PANELon A. baumannii Not detected Normal NOT DETECTED The [facility] Comment on above: Performed By: #### B CID2 ####[facility] [address] [place], [place] [address]DrMeena Smith Bacteriodes fragilis Not detected Normal NOT DETECTED [facility] Comment on above: Performed By: #### B CID2 ####[facility] [address] [address]Dr. Erasmo Smith BCID CONTROLS PASSED Normal The [facility] Comment on above: Performed By: #### B CID2 ####[facility] [address] [address]Dr. Erasmo Smith BCIDBTHD BLOOD CULTURE BOTTLE INFORMATION Normal [facility] Comment on above: Performed By: #### B CID2 ####[facility] [address] [address]Dr. Erasmo Smith BCIDHD1 ANTIMICROBIAL RESISTANCE GENES Normal [facility] Comment on above: Performed By: #### B CID2 ####[facility] [address] [address]Dr. Yiean Smith BCIDHD2 SEE BELOW Normal [facility] Comment on above: Result Comment: Note : Antimicrobial resitance can occur via multiple mechanisms. A Not Detected result for the [employer] antomicrobial resistance gene assays does not indicate antimicrobial susceptibility. Subculturing is required for species identification and susceptibility testing of isolates. Performed By: #### B CID2 ####[facility] [address] [place], [place] [address]Dr. Erasmo Smith BCIDHD3 Positive Normal [facility] Comment on above: Performed By: #### B CID2 ####[facility] [address] [place], [place] [address]Dr. Erasmo Smith BCIDHD4 Negative Normal [facility] Comment on above: Performed By: #### B CID2 ####[facility] [address] [place], [place] [address]Dr. Yiean Smith BCIDHD5 YEAST Normal [facility] Comment on above: Performed By: #### B CID2 ####[facility] Yplranigix[address] [place], [place] [address]Dr. Erasmo Smith Bottle Set: Set 1 Normal [facility] Comment on above: Performed By: #### B CID2 ####[facility] [address] [address]Dr. Heavenean Smith Bottle: Anaerobic Normal [facility] Comment on above: Performed By: #### B CID2 ####[facility] [address] [address]Dr. Yiean Smith C. neoformans/gattii Not detected Normal NOT DETECTED [facility] Comment on above: Performed By: #### B CID2 ####[facility] [address]lsor[address] [address]Dr. Yiean Smith Naye albicans Not detected Normal NOT DETECTED [facility] Comment on above: Performed By: #### B CID2 ####[facility] [address] [address]Dr. Yiean Smith Naye auris Not detected Normal NOT DETECTED [facility] Comment on above: Performed By: #### B CID2 ####[facility] [address]xs[address] [address]Dr. Yiean Smith Naye glabrata Not detected Normal NOT DETECTED [facility] Comment on above: Performed By: #### B CID2 ####[facility] [address]xt[address] [address]Dr. Yiean Smith Naye Krusei Not detected Normal NOT DETECTED The [facility] Comment on above: Performed By: #### B CID2 ####[facility] Ax[address]ix[address]re[address] [address]Dr. Yiean Smith Naye Parapsilosis Not detected Normal NOT DETECTED [facility] Comment on above: Performed By: #### B CID2 ####[facility] [address]tfqgtr[address] [address]Dr. Yiean Smith Naye Tropicalis Not detected Normal NOT DETECTED [facility] Comment on above: Performed By: #### B CID2 ####[facility] U[address]uezbuc[address] [place], [place] [address]Dr. Erasmo Smith CTX-M Resistant Gene Not Applicable Normal NOT DETECTE D [facility] Comment on above: Performed By: #### B CID2 ####[facility] [address] [address]Dr. Yiean Smith E. Cloacae complex Not detected Normal NOT DETECTED [facility] Comment on above: Performed By: #### B CID2 ####[facility] U[address]vsvo[address] [address]Dr. Yilan Smith E. faecalis Not detected Normal NOT DETECTED The [facility] Comment on above: Performed By: #### B CID2 ####[facility] Qgrdyvdsiz[address] [place], [place] [address]Dr. Yiean Smith E. faecium Not detected Normal NOT DETECTED [facility] Comment on above: Performed By: #### B CID2 ####[facility] Kdqnsakytd[address] [place], [place] [address]Dr. Erasmo Smith Enterobacteriaceae Detected Critically abnormal NOT DETECTED [facility] Comment on above: Performed By: #### B CID2 ####[facility] Afrxocycdy[address] [place], [place] [address]Dr. Erasmo Smith Escherichia coli Detected Critically abnormal NOT DETECTED [facility] Comment on above: Performed By: #### B CID2 ####[facility] [address]vtyeczrvq[address] [place], [place] [address]Dr. Erasmo Smith H. influenzae Not detected Normal NOT DETECTED [facility] Comment on above: Performed By: #### B CID2 ####[facility] Bdqdukusei85[address] [place], [place] [address]Dr. Erasmo Smith IMP Resistant Gene Not Applicable Normal NOT DETECTED [facility] Comment on above: Performed By: #### B CID2 ####[facility] Quufjazwne[address] [place], [place] [address]Dr. Erasmo Smith K. oxytoca Not detected Normal NOT DETECTED [facility] Comment on above: Performed By: #### B CID2 ####[facility] Fgzwhhpnlt[address] [place], [place] [address]Dr. Erasmo Smith K. pneumoniae Not detected Normal NOT DETECTED [facility] Comment on above: Performed By: #### B CID2 ####[facility] Loxqzkoing[address] [place], [place] [address]Dr. Erasmo Smith Klebsiella aerogenes Not detected Normal NOT DETECTED [facility] Comment on above: Performed By: #### B CID2 ####[facility] Wfclleeksr[address] [place], [place] [address]Dr. Erasmo Smith KPC Resistant Gene Not detected Normal NOT DETECTED [facility] Comment on above: Performed By: #### B CID2 ####[facility] Usfwaluksr[address] [place], [place] [address]Dr. Erasmo Smith List. monocytogenes Not detected Normal NOT DETECTED [facility] Comment on above: Performed By: #### B CID2 ####[facility] Zozzyywqwo01[address] [place], [place] [address]Dr. Erasmo Smith Mcr-1 Resistant Gene Not Applicable Normal NOT DETECTE D [facility] Comment on above: Performed By: #### B CID2 ####[facility] Zwqfxhlpla[address] [place], [place] [address]Dr. Heavenlan Smith mecA/C Not Applicable Normal NOT DETECTED [facility] Comment on above: Performed By: #### B CID2 ####[facility] Nierzgjwgr[address] [place], [place] [address]Dr. Erasmo Smith mecA/C MREJ Not Applicable Normal NOT DETECTED [facility] Comment on above: Performed By: #### B CID2 ####[facility] Jvudclvghz[address] [place], [place] [address]Dr. Erasmo Smith N. meningitidis Not detected Normal NOT DETECTED [facility] Comment on above: Performed By: #### B CID2 ####[facility] Oeuynovcat01[address] [place], [place] [address]Dr. Erasmo Smith NDM Resistant Gene Not Applicable Normal NOT DETECTED [facility] Comment on above: Performed By: #### B CID2 ####[facility] Keswvmzkyz[address] [place], [place] [address]Dr. Erasmo Smith Oxa-48-like Not Applicable Normal NOT DETECTED [facility] Comment on above: Performed By: #### B CID2 ####[facility] P[address]ahpatzp[address] [place], [place] [address]Dr. Erasmo Smith Proteus Not detected Normal NOT DETECTED [facility] Comment on above: Performed By: #### B CID2 ####[facility] Grjvygrieh[address] [place], [place] [address]Dr. Erasmo Smith Pseud. aeruginosa Not detected Normal NOT DETECTED [facility] Comment on above: Performed By: #### B CID2 ####[facility] Zazssgfirn[address] [place], [place] [address]Dr. Erasmo Smith S. maltophilia Not detected Normal NOT DETECTED [facility] Comment on above: Performed By: #### B CID2 ####[facility] Jbdectyltx[address] [place], [place] [address]Dr. Erasmo Smith Salmonella Not detected Normal NOT DETECTED [facility] Comment on above: Performed By: #### B CID2 ####[facility] [address] [address]Dr. Erasmo Smith Seratia marcescens Not detected Normal NOT DETECTED [facility] Comment on above: Performed By: #### B CID2 ####[facility] O[address]tdatfy[address] [address]Dr. Erasmo Smith Site: l ac Normal [facility] Comment on above: Performed By: #### B CID2 ####[facility] Mkcvqmegmh[address] [place], [place] [address]Dr. Erasmo Smith Staph. aureus Not detected Normal NOT DETECTED [facility] Comment on above: Performed By: #### B CID2 ####[facility] Zjrbbvxcgl[address] [place], [place] [address]Dr. Erasmo Smith Staph. epidermidis Not detected Normal NOT DETECTED [facility] Comment on above: Performed By: #### B CID2 ####[facility] Gxgxfxynfr[address] [place], [place] [address]Dr. Erasmo Smith Staph. lugdunensis Not detected Normal NOT DETECTED [facility] Comment on above: Performed By: #### B CID2 ####[facility] Rbdjmeqssl[address] [place], [place] [address]Dr. Erasmo Smith Staphylococcus Not detected Normal NOT DETECTED [facility] Comment on above: Performed By: #### B CID2 ####[facility] Tvxzgauzkt[address] [place], [place] [address]Dr. Erasmo Smith Strep. agalactiae Not detected Normal NOT DETECTED [facility] Comment on above: Performed By: #### B CID2 ####[facility] Jysdkgbeux8[address] [place], [place] [address]Dr. Erasmo Smith Strep. pneumoniae Not detected Normal NOT DETECTED [facility] Comment on above: Performed By: #### B CID2 ####[facility] Nqwaniinha[address] [place], [place] [address]Dr. Erasmo Smith Strep. pyogenes Not detected Normal NOT DETECTED [facility] Comment on above: Performed By: #### B CID2 ####[facility] [address] [address]Dr. Erasmo Smith Streptococcus Not detected Normal NOT DETECTED [facility] Comment on above: Performed By: #### B CID2 ####[facility] I[address]qhmtvpo[address] [address]Dr. Erasmo Smith Fran/B Resist. Gene Not detected Normal NOT DETECTED [facility] Comment on above: Performed By: #### B CID2 ####[facility] [address]qoeyyfh[address] [address]Dr. Erasmo Smith VIM Resistant Gene Not Applicable Normal NOT DETECTED [facility] Comment on above: Performed By: #### B CID2 ####[facility] K[address]wyydu[address] [address]Dr. Erasmo Smith BNPon 12-02-2022 Natriuretic peptide B (Bld) [Mass/Vol] 1059.0 pg/mL Normal <=1,800.0 [facility] Comment on above: Performed By: #### B FINANCIAL PROFESSIONAL #### [facility] [address] [address] [address] Erasmo Smith CBC AUTO DIFFon 12-02-2022 BASO # 0.0 103/ul Normal 0.0-0.1 [facility] Comment on above: Performed By: #### C BC ####[facility] [address]wt[address] [address]Dr. Erasmo Smith Basophils/100 WBC (Bld) 0.2 % Normal 0.2-2.0 [facility] Comment on above: Performed By: #### C BC ####[facility] Krgtexnpcf[address] [place], [place] [address]Dr. Erasmo Smith EO # 0.0 103/ul Normal 0.0-0.7 [facility] Comment on above: Performed By: #### C BC ####[facility] Zh[address]yffpsi[address] [address]DrMeena Smith Eosinophils/100 WBC (Bld) 0.0 % Critically low 0.9-7.0 [facility] Comment on above: Performed By: #### C BC ####[facility] [address]foqkapf[address] [address]Dr. Erasmo Smith Erythrocyte distribution width (RBC) [Ratio] 17.3 % Critically high 11.0-15.0 [facility] Comment on above: Performed By: #### C BC ####[facility] [address] [address]Dr. Erasmo Smith Hematocrit (Bld) [Volume fraction] 31.4 % Critically low 36.0-48.0 [facility] Comment on above: Performed By: #### C BC ####[facility] Tu[address]vs[address] [address]Dr. Erasmo Smith Hemoglobin (Bld) [Mass/Vol] 10.0 g/dL Critically low 12.0-16.0 [facility] Comment on above: Performed By: #### C BC ####[facility] Hdbsgxaixu[address] [place], [place] [address]Dr. Erasmo Smith IG # 0.06 10e3/ul Critically high 0.00-0.03 [facility] Comment on above: Performed By: #### C BC ####[facility] Moeqoagpmy[address] [place], [place] [address]Dr. Erasmo Smith IG % 0.4 % Normal 0.0-0.5 [facility] Comment on above: Performed By: #### C BC ####[facility] Wmyiypamvg[address] [place], [place] [address]Dr. Erasmo Smith LYMPH # 1.3 103/ul Normal 1.2-3.8 [facility] Comment on above: Performed By: #### C BC ####[facility] Venkqjqlzk[address] [place], [place] [address]Dr. Erasmo Smith Lymphocytes/100 WBC (Bld) 8.1 % Critically low 20.5-60.0 [facility] Comment on above: Performed By: #### C BC ####[facility] Aydpnzsizn[address] [place], [place] [address]Dr. Erasmo Luis MANUAL DIFF REQ NO Normal [facility] Comment on above: Performed By: #### C BC ####[facility] [address]xy[address] [address]Dr. Erasmo Smith MCH (RBC) [Entitic mass] 25.6 pg Critically low 26.7-34.0 [facility] Comment on above: Performed By: #### C BC ####[facility] Z[address]ysusba[address] [address]Dr. Erasmo Smith MCHC (RBC) [Mass/Vol] 31.8 g/dL Normal 29.9-35.2 [facility] Comment on above: Performed By: #### C BC ####[facility] Absswornwk[address] [address]Dr. Erasmo Luis MCV (RBC) [Entitic vol] 80.3 fL Critically low 81.0-99.0 [facility] Comment on above: Performed By: #### C BC ####[facility] [address]iykpakbq[address] [place], [place] [address]Dr. Erasmo Smith MONO # 0.6 103/ul Normal 0.3-0.8 [facility] Comment on above: Performed By: #### C BC ####[facility] Z[address]ijllshvg[address] [place], [place] [address]Dr. Heavenean Smith Monocytes/100 WBC (Bld) 3.7 % Normal 1.7-12.0 [facility] Comment on above: Performed By: #### C BC ####[facility] Gevephpyst[address] [place], [place] [address]Dr. Heavenean Smith NEUT # 14.5 103/ul Critically high 1.4-6.5 [facility] Comment on above: Performed By: #### C BC ####[facility] K[address] [place], [place] [address]Dr. Erasmo Smith Neutrophils/100 WBC (Bld) 87.6 % Critically high 43.0-75.0 [facility] Comment on above: Performed By: #### C BC ####[facility] Sehtghmksx[address] [place], [place] [address]Dr. Erasmo Smith Platelet mean volume (Bld) [Entitic vol] 10.0 fL Normal 9.5-13.5 [facility] Comment on above: Performed By: #### C BC ####[facility] Q[address]bhzjz8[address] [place], [place] [address]Gl. Erasmo Smith PLT 206 103/ul Normal 150-450 [facility] Comment on above: Performed By: #### C BC ####[facility] R[address]zwgvvas32[address] [place], [place] [address]Rf. Erasmo Smith RBC 3.91 106/ul Critically low 4.20-5.40 [facility] Comment on above: Performed By: #### C BC ####[facility] Uwlnclxwoz075[address] [place], [place] [address]Jn. Erasmo Smith WBC 16.5 103/ul Critically high 4.0-11.0 [facility] Comment on above: Performed By: #### C BC ####[facility] [address]ersp[address] [place], [place] [address]Fo. Erasmo Smith ECHOCARDIO M/2D COMPLETEon 0 12-02-2022 ECHOCARDIO M/2D COMPLETE Patient: BREANN STARKS Exam Date: 12/02/2022 : 1945 Gender:F Ordering : KAYLEY HOLMAN . Admission #: [id number] Family : DR LUISANA FISHER . Order #: [id number] CLICK HERE TO VIEW EXAM ECHOCARDIOGRAM REPORT [...] Salazar M.D. on 12/02/2022 at 21:58 Normal [facility] MAGNESIUMon 12-02-2022 Magnesium [Mass/Vol] 2.0 mg/dL Normal 1.8-2.4 [facility] Comment on above: Performed By: #### B FINANCIAL PROFESSIONAL #### [facility] [address] [place] [address] Dr. Erasmo Smith PROF 14(COMP METB)on 023 Albumin [Mass/Vol] 2.7 g/dL Critically low 3.4-5.0 [facility] Comment on above: Performed By: #### B FINANCIAL PROFESSIONAL #### [facility] [address] [place] [address] Dr. Erasmo Smith Albumin/Globulin [Mass ratio] 0.6 {ratio} Normal [facility] Comment on above: Performed By: #### B FINANCIAL PROFESSIONAL #### [facility] [address] [place] [address] Dr. Erasmo Smith ALP [Catalytic activity/Vol] 128 U/L Critically high 46-116 [facility] Comment on above: Performed By: #### B FINANCIAL PROFESSIONAL #### [facility] [address] [place] [address] Dr. Erasmo Smith ALT [Catalytic activity/Vol] 34 U/L Normal 14-59 [facility] Comment on above: Performed By: #### B FINANCIAL PROFESSIONAL #### [facility] [address] [place] [address] Dr. Erasmo Smith Anion gap [Moles/Vol] 10.6 mmol/L Normal [facility] Comment on above: Performed By: #### B FINANCIAL PROFESSIONAL #### [facility] [address] [place] [address] Dr. Erasmo Smith AST [Catalytic activity/Vol] 27 U/L Normal 15-37 [facility] Comment on above: Performed By: #### B FINANCIAL PROFESSIONAL #### [facility] [address] [place] [address] Dr. Erasmo Smith Bilirubin [Mass/Vol] 0.5 mg/dL Normal 0.2-1.0 [facility] Comment on above: Performed By: #### B FINANCIAL PROFESSIONAL #### [facility] [address] [address] [address] Erasmo Smith Calcium [Mass/Vol] 8.4 mg/dL Critically low 8.5-10.1 [facility] Comment on above: Performed By: #### B FINANCIAL PROFESSIONAL #### [facility] [address] [address] [address] Erasmo Smith Chloride [Moles/Vol] 104 mmol/L Normal 98-107 [facility] Comment on above: Performed By: #### B FINANCIAL PROFESSIONAL #### [facility] [address] [place] [address] Dr. Erasmo Smith CO2 [Moles/Vol] 26.2 mmol/L Normal 21.0-32.0 [facility] Comment on above: Performed By: #### B FINANCIAL PROFESSIONAL #### [facility] [address] [place] [address] Dr. Erasmo Smith Creatinine [Mass/Vol] 0.52 mg/dL Critically low 0.55-1.02 [facility] Comment on above: Performed By: #### B FINANCIAL PROFESSIONAL #### [facility] [address] [place] [address] Dr. Erasmo Smith EGFR-AF NAURUAN >60 Normal >=60 [facility] Comment on above: Performed By: #### B FINANCIAL PROFESSIONAL #### [facility] [address] [place] [address] Dr. Erasmo Smith EGFR-NON AF NAURUAN >60 Normal >=60 [facility] Comment on above: Performed By: #### B FINANCIAL PROFESSIONAL #### [facility] [address] [place] [address] Dr. Erasmo Smith Globulin (S) [Mass/Vol] 4.3 g/dL Normal [facility] Comment on above: Performed By: #### B FINANCIAL PROFESSIONAL #### [facility] [address] [place] [address] Dr. Erasmo Smith Glucose [Mass/Vol] 135 mg/dL Critically high 74-106 [facility] Comment on above: Performed By: #### B FINANCIAL PROFESSIONAL #### [facility] [address] [place] [address] Dr. Erasmo Smith Potassium [Moles/Vol] 3.8 mmol/L Normal 3.5-5.1 [facility] Comment on above: Performed By: #### B FINANCIAL PROFESSIONAL #### [facility] [address] [place] [address] Dr. Erasmo Smith Protein [Mass/Vol] 7.0 g/dL Normal 6.4-8.2 [facility] Comment on above: Performed By: #### B FINANCIAL PROFESSIONAL #### [facility] [address] [address] [address] Erasmo Smith Sodium [Moles/Vol] 137 mmol/L Normal 136-145 [facility] Comment on above: Performed By: #### B FINANCIAL PROFESSIONAL #### [facility] [address] [place] [address] Dr. Erasmo Smith Urea nitrogen [Mass/Vol] 16.0 mg/dL Normal 7.0-18.0 [facility] Comment on above: Performed By: #### B FINANCIAL PROFESSIONAL #### [facility] [address] [place] [address] Dr. Erasmo Smith Urea nitrogen/Creatinine [Mass ratio] 30.8 mg/mg Normal [facility] Comment on above: Performed By: #### B FINANCIAL PROFESSIONAL #### [facility] [address] [place] [address] Dr. Erasmo Smith PROTIMEon 12-02-2022 INR Coag (PPP) [Relative time] 4.39 {INR} Critically high [facility] Comment on above: Performed By: #### P T #### [facility] [address] [place] [address] Dr. Erasmo Smith INR GUIDELINES SEE BELOW Normal [facility] Comment on above: Result Comment: ABNER RED INR: 2.0 - 3.0 CONDITIONS NOT LISTED BELOW 2.5 - 3.5 FOR PROSTHETIC HEART VALVE REPLACEMENT 2.5 - 3.5 RECURRENT THROMBOSIS Performed By: #### P T #### [facility] [address] [place] [address] Dr. Erasmo Smith PT Coag (PPP) [Time] 42.8 s Critically high 9.0-11.6 [facility] Comment on above: Performed By: #### P T #### [facility] [address] [place], [place] [address] Dr. Erasmo Smith UA RANDOM W/MICROSCOPICon BACTERIA NONE SEEN Normal NONE SEEN [facility] Comment on above: Performed By: #### U AMIC ####[facility] [address] [place] [address]Dr. Erasmo Smith Bilirubin Ql (U) Negative Normal NEGATIVE [facility] Comment on above: Performed By: #### U AMIC ####[facility] [address] [place] [address]Dr. Erasmo Smith CAST NONE SEEN Normal NONE SEEN [facility] Comment on above: Performed By: #### U AMIC ####[facility] [address] [place] [address]Dr. Ersamo Smith Clarity (U) CLEAR Normal CLEAR [facility] Comment on above: Performed By: #### U AMIC ####[facility] [address] [place] [address]Dr. Erasmo Smith Color (U) YELLOW Normal YELLOW [facility] Comment on above: Performed By: #### U AMIC ####[facility] [address]ix[address] [place] [address]Dr. Erasmo Smith Crystals LM Nom (Urine sed) NONE SEEN Normal NONE SEEN [facility] Comment on above: Performed By: #### U AMIC ####[facility] [address] [place] [address]Dr. Erasmo Smith Epithelial cells LM Ql (Urine sed) RARE Normal NONE SEEN /RARE [facility] Comment on above: Performed By: #### U AMIC ####[facility] [address] [place] [address]Dr. Erasmo Smith Glucose Ql (U) Negative Normal NEGATIVE [facility] Comment on above: Performed By: #### U AMIC ####[facility] [address] [place] [address]Dr. Erasmo Smith Hemoglobin Ql (U) SMALL Abnormal NEGATIVE [facility] Comment on above: Performed By: #### U AMIC ####[facility] [address] [place] [address]Dr. Erasmo Smith Ketones Ql (U) 15 mg/dl Abnormal NEGATIVE [facility] Comment on above: Performed By: #### U AMIC ####[facility] Xuf[address] [place], [place] [address]Dr. Erasmo Smith LEUKOCYTES Negative Normal NEGATIVE [facility] Comment on above: Performed By: #### U AMIC ####[facility] Uhfbblb[address] [place], [place] [address]Dr. Heavenean Smith MUCOUS NONE SEEN Normal NONE SEEN [facility] Comment on above: Performed By: #### U AMIC ####[facility] Kiss[address]me[address] [place], [place] [address]Dr. Erasmo Smith Nitrite Ql (U) Negative Normal NEGATIVE [facility] Comment on above: Performed By: #### U AMIC ####[facility] [address] [place], [place] [address]Dr. Erasmo Smith pH (U) 6.0 [pH] Normal 5-9 [facility] Comment on above: Performed By: #### U AMIC ####[facility] Wna[address] [place], [place] [address]Dr. Erasom Smith RBC 0-2 Normal 0-2 [facility] Comment on above: Performed By: #### U AMIC ####[facility] [address] [place], [place] [address]Dr. Erasmo Smith SPEC GRAVITY 1.025 Normal 1.005-<=1.02 5 [facility] Comment on above: Performed By: #### U AMIC ####[facility] [address] [place], [place] [address]Dr. Erasmo Smith UA PROTEIN TRACE Normal NEGATIVE/ TRACE [facility] Comment on above: Performed By: #### U AMIC ####[facility] Ahym[address]ju[address] [place], [place] [address]Dr. Erasmo Smith Urobilinogen Qn (U) 4 {Shraddha'U}/dL Abnormal 0.2 - 1.0 [facility] Comment on above: Performed By: #### U AMIC ####[facility] [address] [place], [place] [address]ChDr. Erasmo Smith WBC 0-2 Abnormal NONE SEEN [facility] Comment on above: Performed By: #### U AMIC ####[facility] [address] [place] [id number]. Erasmo Smith CARDIAC ROSA ELENA 3-6on 3 CK [Catalytic activity/Vol] 53 U/L Normal 26-192 [facility] Comment on above: Performed By: #### C MREP #### [facility] [address] [address] [address] Erasmo BAE.MB [Mass/Vol] 0.90 ng/mL Normal <=3.60 [facility] Comment on above: Performed By: #### C MREP #### [facility] [address] [place] [address] Dr. Erasmo Smith HSTROP 116.7 pg/mL Critically high 4.0-51.3 [facility] Comment on above: Result Comment: CUT- OFF POINTS HAVE BEEN ESTABLISHED BASED ON THE FOURTH UNIVERSAL DEFINITIONS OF MYOCARDIAL INFARCTION. THE UPPER REFERENCE LIMIT (URL) OF TROPONIN, DEFINED THE 99TH PERCENTILE OF cTnI DISTRIBUTION IN A REFERENCE POPULATION, HAS BEEN CONFIRMED THE DECISION THRESHOLD FOR OK DIAGNOSIS. Performed By: #### C MREP #### [facility] [address] [place] [address] Dr. Erasmo Smith CK [Catalytic activity/Vol] 47 U/L Normal 26-192 [facility] Comment on above: Performed By: #### B FINANCIAL PROFESSIONAL #### [facility] [address] [place] [address] Dr. Erasmo BAE.MB [Mass/Vol] 1.00 ng/mL Normal <=3.60 [facility] Comment on above: Performed By: #### B FINANCIAL PROFESSIONAL #### [facility] [address] [place] [address] Dr. Erasmo Smith HSTROP 154.3 pg/mL Critically high 4.0-51.3 [facility] Comment on above: Result Comment: CUT- OFF POINTS HAVE BEEN ESTABLISHED BASED ON THE FOURTH UNIVERSAL DEFINITIONS OF MYOCARDIAL INFARCTION. THE UPPER REFERENCE LIMIT (URL) OF TROPONIN, DEFINED THE 99TH PERCENTILE OF cTnI DISTRIBUTION IN A REFERENCE POPULATION, HAS BEEN CONFIRMED THE DECISION THRESHOLD FOR OK DIAGNOSIS. Performed By: #### B FINANCIAL PROFESSIONAL #### [facility] [address] [place] [address] Dr. Erasmo Smith CBC W MANUAL DIFFon 12-02-19 23 ATYPICAL LYMPH # Normal [facility] Comment on above: Performed By: #### C BCMAN #### [facility] [address] [place] [address] Dr. Erasmo Smith ATYPICAL LYMPH % Normal [facility] Comment on above: Performed By: #### C ANGELA #### [facility] [address] [place] [address] Dr. Erasmo Smith BAND # 0.6 103/ul Critically high 0.0-0.3 [facility] Comment on above: Performed By: #### C ANGELA #### [facility] [address] [place] [address] Dr. Erasmo Smith BAND % 3 % Normal 0-5 [facility] Comment on above: Performed By: #### C BCMAN #### [facility] [address] [place] [address] Dr. Erasmo Smith BASOM # 0.00 103/ul Normal 0.00-0.10 [facility] Comment on above: Performed By: #### C ANGELA #### [facility] [address] [place] [address] Dr. Erasmo Smith BASOM % 0.0 % Critically low 0.2-2.0 [facility] Comment on above: Performed By: #### C BCBLAISE #### [facility] [address] [place] [address] Dr. Erasmo Smith BLAST # Normal [facility] Comment on above: Performed By: #### C BCMAN #### [facility] [address] [place] [address] Dr. Erasmo Smith BLAST % Normal [facility] Comment on above: Performed By: #### C BCMAN #### [facility] [address] [place] [address] Dr. Erasmo Smith CORRECTED WBC Normal 4.0-11.0 [facility] Comment on above: Performed By: #### C ANGELA #### [facility] [address] [address] [address] Erasmo Smith EOS # 0.19 103/ul Normal 0.00-0.70 [facility] Comment on above: Performed By: #### C ANGELA #### [facility] [address] [address] [address] Erasmo Smith EOS% 1.0 % Normal 0.9-7.0 [facility] Comment on above: Performed By: #### C ANGELA #### [facility] [address] [place] [address] Dr. Erasmo Smith HCT 32.7 % Critically low 36.0-48.0 [facility] Comment on above: Performed By: #### C ANGELA #### [facility] [address] [place] [address] Dr. Erasmo Smith HGB 10.5 g/dl Critically low 12.0-16.0 [facility] Comment on above: Performed By: #### C ANGELA #### [facility] [address] [place] [address] Dr. Erasmo Smith LYMPHM # 0.76 103/ul Critically low 1.20-3.80 [facility] Comment on above: Performed By: #### C ANGELA #### [facility] [address] [place] [address] Dr. Erasmo Smith LYMPHM% 4.0 % Critically low 20.5-60.0 [facility] Comment on above: Performed By: #### C ANGELA #### [facility] [address] [place] [address] Dr. Erasmo Smith MCH 25.9 pg Critically low 26.7-34.0 [facility] Comment on above: Performed By: #### C ANGELA #### [facility] [address] [address] [address] Erasmo Smith MCHC 32.1 g/dl Normal 29.9-35.2 [facility] Comment on above: Performed By: #### C ANGELA #### [facility] [address] [place] [address] Dr. Erasmo Smith MCV 80.5 fL Critically low 81.0-99.0 [facility] Comment on above: Performed By: #### C ANGELA #### [facility] [address] [place] [address] Dr. Erasmo Smith METAMYELOCYTE # Normal [facility] Comment on above: Performed By: #### C BCBLAISE #### [facility] [address] [place] [address] Dr. Erasmo Smith METAMYELOCYTE % Normal [facility] Comment on above: Performed By: #### C ANGELA #### [facility] [address] [place] [address] Dr. Erasmo Smith MONOM# 1.14 103/ul Critically high 0.30-0.80 [facility] Comment on above: Performed By: #### C ANGELA #### [facility] [address] [place] [address] Dr. Erasmo Smith MONOM% 6.0 % Normal 1.7-12.0 [facility] Comment on above: Performed By: #### C ANGELA #### [facility] [address] [place] [address] Dr. Erasmo Smith MPV 9.4 fL Critically low 9.5-13.5 [facility] Comment on above: Performed By: #### C ANGELA #### [facility] [address] [place] [address] Dr. Erasmo Smith MYELOCYTE # Normal [facility] Comment on above: Performed By: #### C ANGELA #### [facility] [address] [place] [address] Dr. Ersamo Smith MYELOCYTE % Normal [facility] Comment on above: Performed By: #### C ANGELA #### [facility] [address] [place] [address] Dr. Erasmo Smith NRBC Normal [facility] Comment on above: Performed By: #### C ANGELA #### [facility] [address] [place], [place] [address] Dr. Erasmo Smith PLT 195 103/ul Normal 150-450 [facility] Comment on above: Performed By: #### C ANGELA #### [facility] [address] [place], [place] [address] Dr. Erasmo Smith RBC 4.06 106/ul Critically low 4.20-5.40 [facility] Comment on above: Performed By: #### C ANGELA #### [facility] [address] [address] [address] Erasmo Smith RDW 17.7 % Critically high 11.0-15.0 [facility] Comment on above: Performed By: #### C ANGELA #### [facility] [address] [address] [address] Erasmo Smith SEG # 16.34 103/ul Critically high 1.40-6.50 [facility] Comment on above: Performed By: #### C ANGELA #### [facility] [address] [address] [address] Erasmo Smith SEG % 86.0 % Critically high 43.0-75.0 [facility] Comment on above: Performed By: #### C ANGELA #### [facility] [id number] Erasmo Smith WBC 19.0 103/ul Critically high 4.0-11.0 [facility] Comment on above: Performed By: #### Yamile MILLER #### [facility] [address] [address] [address] HEAD WO CONon [...] SALOME MCCORMICK Date: 2022 14:50 Normal [facility] CULTURE BLOODon 2022 Microscopic examination of blood, culture Culture Observations: Aerobic and Anaerobic bottle positive. BCID: E. Coli Culture Observations: Refer to for VIOLET. Isolate 1 Escherichia coli Growth of Normal [facility] Comment on above: Performed By: #### B LDCX2 ####[facility] [address] [place], [place] [address]KgDr. Erasmo Smith Covid-19 PCR ([facility])on 11-11 SARS-CoV-2 (COVID-19) RNA EMILY+probe Ql (Unsp spec) Not detected Normal NOT DETECTED [facility] Comment on above: Result [...] for this test is supported by the [place] of Health and Human Service's declaration that [...] used). Performed By: #### C MREP #### [facility] [address] [place], [place] [address] Dr. Erasmo Smith LACTATE/LACTIC ACIDon 2022 Lactate [Moles/Vol] 1.2 mmol/L Normal 0.4-2.0 [facility] Comment on above: Performed By: #### L ACT ####[facility] [address] [place] [id number]. Erasmo Smith PH VENOUS BLOODon 2022 PCO2 VENOUS 37.8 mmHg Critically low 40.0-52.0 [facility] Comment on above: Performed By: #### P HVEN ####[facility] [address] [place] [id number]. Erasmo Smith pH VENOUS 7.417 Normal 7.330-7.430 [facility] Comment on above: Performed By: #### P HVEN ####[facility] [address] [place] [address]Dr. Erasmo Smith PROF 14(COMP METB)on 023 Albumin [Mass/Vol] 3.1 g/dL Critically low 3.4-5.0 [facility] Comment on above: Performed By: #### H ALEXSANDER, CMP ####[facility] [address] [place] [address]Dr. Erasmo Smith Albumin/Globulin [Mass ratio] 0.8 {ratio} Normal [facility] Comment on above: Performed By: #### H ALEXSANDER, CMP ####[facility] [address] [place] [address]Dr. Erasmo Smith ALP [Catalytic activity/Vol] 194 U/L Critically high 46-116 [facility] Comment on above: Performed By: #### H ALEXSANDER, CMP ####[facility] [address] [place] [address]Dr. Erasmo Smith ALT [Catalytic activity/Vol] 37 U/L Normal 14-59 [facility] Comment on above: Performed By: #### H ALEXSANDER, CMP ####[facility] [address] [place] [address]Dr. Erasmo Smith Anion gap [Moles/Vol] 14.6 mmol/L Normal [facility] Comment on above: Performed By: #### H ALEXSANDER, CMP ####[facility] [address] [place] [address]Dr. Erasmo Smith AST [Catalytic activity/Vol] 32 U/L Normal 15-37 [facility] Comment on above: Performed By: #### H STROPN, CMP ####[facility] [address] [place] [address]Dr. Erasmo Smith Bilirubin [Mass/Vol] 1.0 mg/dL Normal 0.2-1.0 [facility] Comment on above: Performed By: #### H STROPN, CMP ####[facility] [address] [place], [place] [address]Dr. Erasmo Smith Calcium [Mass/Vol] 8.9 mg/dL Normal 8.5-10.1 [facility] Comment on above: Performed By: #### H STROPN, CMP ####[facility] [address] [place], [place] [address]Dr. Erasmo Smith Chloride [Moles/Vol] 103 mmol/L Normal 98-107 [facility] Comment on above: Performed By: #### H STROPN, CMP ####[facility] [address]wt[address] [place], [place] [address]Dr. Erasmo Smith CO2 [Moles/Vol] 23.6 mmol/L Normal 21.0-32.0 [facility] Comment on above: Performed By: #### H STROPN, CMP ####[facility] [address] [place], [place] [address]Dr. Erasmo Smith Creatinine [Mass/Vol] 0.69 mg/dL Normal 0.55-1.02 [facility] Comment on above: Performed By: #### H STROPN, CMP ####[facility] [address] [place], [place] [address]Dr. Heavenean Luis EGFR-AF NAURUAN >60 Normal >=60 [facility] Comment on above: Performed By: #### H STROPN, CMP ####[facility] [address] [place], [place] [address]Dr. Erasmo Smith EGFR-NON AF NAURUAN >60 Normal >=60 [facility] Comment on above: Performed By: #### H STROPN, CMP ####[facility] [address] [place], [place] [address]Dr. Erasmo Smith Globulin (S) [Mass/Vol] 4.1 g/dL Normal [facility] Comment on above: Performed By: #### H ALEXSANDER, CMP ####[facility] [address] [place] [address]Dr. Erasmo Smith Glucose [Mass/Vol] 121 mg/dL Critically high 74-106 T [facility] Comment on above: Performed By: #### H ALEXSANDER, CMP ####[facility] [address] [place] [address]Dr. Erasmo Smith Potassium [Moles/Vol] 3.2 mmol/L Critically low 3.5-5.1 [facility] Comment on above: Performed By: #### H ALEXSANDER, CMP ####[facility] [address] [place], [place] [address]Dr. Erasmo Smith Protein [Mass/Vol] 7.2 g/dL Normal 6.4-8.2 [facility] Comment on above: Performed By: #### Kymberly BELTRE, CMP ####[facility] [address] [place], [place] [address]Dr. Erasmo Smith Sodium [Moles/Vol] 138 mmol/L Normal 136-[address] [facility] Comment on above: Performed By: #### H ALEXSANDER, CMP ####[facility] [address] [place], [place] [address]Dr. Erasmo Smith Urea nitrogen [Mass/Vol] 17.0 mg/dL Normal 7.0-18.0 [facility] Comment on above: Performed By: #### H ALEXSANDER, CMP ####[facility] [address] [place], [place] [address]Dr. Erasmo Smith Urea nitrogen/Creatinine [Mass ratio] 24.6 mg/mg Normal [facility] Comment on above: Performed By: #### H ALEXSANDER, CMP ####[facility] [address] [place] [address]Dr. Erasmo Smith PROTIMEon 2022 INR Coag (PPP) [Relative time] 3.58 {INR} Normal [facility] Comment on above: Performed By: #### P T, PTT #### [facility] [address] [place] [address] Dr. Erasmo Smith INR GUIDELINES SEE BELOW Normal [facility] Comment on above: Result Comment: ABNER RED INR: 2.0 - 3.0 CONDITIONS NOT LISTED BELOW 2.5 - 3.5 FOR PROSTHETIC HEART VALVE REPLACEMENT 2.5 - 3.5 RECURRENT THROMBOSIS Performed By: #### P T, PTT #### [facility] [address] [place] [address] Dr. Erasmo Smith PT Coag (PPP) [Time] 35.3 s Critically high 9.0-11.6 [facility] Comment on above: Performed By: #### P T, PTT #### [facility] [address] [place] [address] Dr. Erasmo Smith PTTon 2022 aPTT Coag (Bld) [Time] 40.3 s Critically high 22.3-36. 2 [facility] Comment on above: Performed By: #### P T, PTT #### [facility] [address] [place] [address] Dr. Erasmo Smith TROPONIN, HIGH SENSITIVITYon 2022 HSTROP 194.7 pg/mL Critically high 4.0-51.3 [facility] Comment on above: Result Comment: CUT- OFF POINTS HAVE BEEN ESTABLISHED BASED ON THE FOURTH UNIVERSAL DEFINITIONS OF MYOCARDIAL INFARCTION. THE UPPER REFERENCE LIMIT (URL) OF TROPONIN, DEFINED THE 99TH PERCENTILE OF cTnI DISTRIBUTION IN A REFERENCE POPULATION, HAS BEEN CONFIRMED THE DECISION THRESHOLD FOR OK DIAGNOSIS. Performed By: #### C MREP #### [facility] [address] [place] [address] Dr. Erasmo Smith HSTROP 218.0 pg/mL Critically high 4.0-51.3 [facility] Comment on above: Result Comment: CUT- OFF POINTS HAVE BEEN ESTABLISHED BASED ON THE FOURTH UNIVERSAL DEFINITIONS OF MYOCARDIAL INFARCTION. THE UPPER REFERENCE LIMIT (URL) OF TROPONIN, DEFINED THE 99TH PERCENTILE OF cTnI DISTRIBUTION IN A REFERENCE POPULATION, HAS BEEN CONFIRMED THE DECISION THRESHOLD FOR OK DIAGNOSIS. Performed By: #### B FINANCIAL PROFESSIONAL #### [facility] [address] [place] [address] Dr. Erasmo Smith XR CHEST 1 Von [...] by: HONG ALSTON Date: 2022 14:18 Normal [facility] MAMM SCREEN 3D TOÑITO CADon 11-26-2022 MG MAMM SCREEN 3D TOÑITO CAD Patient: BREANN STARKS Exam Date: 11/26/2022 : 1945 Gender:F Ordering : DR LUISANA FISHER . Admission #: [id number] Family : Order #: [id number] CLICK HERE TO VIEW EXAM RADIOLOGY REPORT [...] Treatments None Family Cancers None LOCATION: [facility] BREAST COMPOSITION: Heterogeneously dense,which may [...] Delgado M.D. on 11/26/2022 at 14:13 Normal [facility] PROF 14(COMP METB)on 022 Albumin [Mass/Vol] 3.8 g/dL Normal 3.4-5.0 [facility] Comment on above: Performed By: #### C MREP #### [facility] [address] [place] [address] Dr. Erasmo Smith Albumin/Globulin [Mass ratio] 0.8 {ratio} Normal [facility] Comment on above: Performed By: #### C MREP #### [facility] [address] [address] [address] Erasmo Smith ALP [Catalytic activity/Vol] 102 U/L Normal 46-116 [facility] Comment on above: Performed By: #### C MREP #### [facility] [address] [place] [address] Dr. Erasmo Smith ALT [Catalytic activity/Vol] 47 U/L Normal 14-59 [facility] Comment on above: Performed By: #### C MREP #### [facility] [address] [place] [address] Dr. Erasmo Smith Anion gap [Moles/Vol] 12.5 mmol/L Normal [facility] Comment on above: Performed By: #### C MREP #### [facility] [address] [place] [address] Dr. Erasmo Smith AST [Catalytic activity/Vol] 36 U/L Normal 15-37 [facility] Comment on above: Performed By: #### C MREP #### [facility] [address] [place] [address] Dr. Erasmo Smith Bilirubin [Mass/Vol] 0.3 mg/dL Normal 0.2-1.0 [facility] Comment on above: Performed By: #### C MREP #### [facility] [address] [place] [address] Dr. Erasmo Smith Calcium [Mass/Vol] 8.9 mg/dL Normal 8.5-10.1 [facility] Comment on above: Performed By: #### C MREP #### [facility] [address] [place] [address] Dr. Erasmo Smith Chloride [Moles/Vol] 106 mmol/L Normal 98-107 [facility] Comment on above: Performed By: #### C MREP #### [facility] [address] [address] [address] Erasmo Smith CO2 [Moles/Vol] 26.9 mmol/L Normal 21.0-32.0 [facility] Comment on above: Performed By: #### C MREP #### [facility] [address] [address] [address] Erasmo Smith Creatinine [Mass/Vol] 0.79 mg/dL Normal 0.55-1.02 [facility] Comment on above: Performed By: #### C MREP #### [facility] [address] [place] [address] Dr. Erasmo Smith EGFR-AF NAURUAN >60 Normal >=60 [facility] Comment on above: Performed By: #### C MREP #### [facility] [address] [place] [address] Dr. Erasmo Smith EGFR-NON AF NAURUAN >60 Normal >=60 [facility] Comment on above: Performed By: #### C MREP #### [facility] [address] [address] [address] Erasmo Smith Globulin (S) [Mass/Vol] 4.6 g/dL Normal [facility] Comment on above: Performed By: #### C MREP #### [facility] [address] [address] [address] Erasmo Smith Glucose [Mass/Vol] 102 mg/dL Normal 74-106 [facility] Comment on above: Performed By: #### C MREP #### [facility] [address] [address] [address] Erasmo Smith Potassium [Moles/Vol] 4.4 mmol/L Normal 3.5-5.1 [facility] Comment on above: Performed By: #### C MREP #### [facility] [address] [place] [address] Dr. Erasmo Smith Protein [Mass/Vol] 8.4 g/dL Critically high 6.4-8.2 T [facility] Comment on above: Performed By: #### C MREP #### [facility] Laboratory [address] [address] [address] Erasmo Smith Sodium [Moles/Vol] 141 mmol/L Normal 136-145 [facility] Comment on above: Performed By: #### C MREP #### [facility] [address] [place] [address] Dr. Erasmo Smith Urea nitrogen [Mass/Vol] 28.0 mg/dL Critically high 7.0-18.0 [facility] Comment on above: Performed By: #### C MREP #### [facility] [address] [address] [address] Erasmo Smith Urea nitrogen/Creatinine [Mass ratio] 35.4 mg/mg Normal [facility] Comment on above: Performed By: #### C MREP #### [facility] [address] [place] [address] Dr. Erasmo Smith CBC AUTO DIFFon 07-12-2022 BASO # 0.1 103/ul Normal 0.0-0.1 [facility] Comment on above: Performed By: #### B FINANCIAL PROFESSIONAL #### [facility] [address] [place] [address] Dr. Erasmo Smith Basophils/100 WBC (Bld) 0.5 % Normal 0.2-2.0 [facility] Comment on above: Performed By: #### B FINANCIAL PROFESSIONAL #### [facility] [address] [place] [address] Dr. Erasmo Smith EO # 0.2 103/ul Normal 0.0-0.7 [facility] Comment on above: Performed By: #### B FINANCIAL PROFESSIONAL #### [facility] [address] [place] [address] Dr. Erasmo Smith Eosinophils/100 WBC (Bld) 2.5 % Normal 0.9-7.0 [facility] Comment on above: Performed By: #### B FINANCIAL PROFESSIONAL #### [facility] [address] [place] [address] Dr. Erasmo Smith Erythrocyte distribution width (RBC) [Ratio] 17.2 % Critically high 11.0-15.0 [facility] Comment on above: Performed By: #### B FINANCIAL PROFESSIONAL #### [facility] [address] [place] [address] Dr. Erasmo Smith Hematocrit (Bld) [Volume fraction] 35.0 % Critically low 36.0-48.0 [facility] Comment on above: Performed By: #### B FINANCIAL PROFESSIONAL #### [facility] [address] [place] [address] Dr. Erasmo Smith Hemoglobin (Bld) [Mass/Vol] 11.3 g/dL Critically low 12.0-16.0 [facility] Comment on above: Performed By: #### B FINANCIAL PROFESSIONAL #### [facility] [address] [place] [address] Dr. Erasmo Smtih IG # 0.02 10e3/ul Normal 0.00-0.03 [facility] Comment on above: Performed By: #### B FINANCIAL PROFESSIONAL #### [facility] [address] [place] [address] Dr. Erasmo Smith IG % 0.2 % Normal 0.0-0.5 [facility] Comment on above: Performed By: #### B FINANCIAL PROFESSIONAL #### [facility] [address] [place] [address] Dr. Erasmo Smith LYMPH # 2.3 103/ul Normal 1.2-3.8 [facility] Comment on above: Performed By: #### B FINANCIAL PROFESSIONAL #### [facility] [address] [place] [address] Dr. Erasmo Smith Lymphocytes/100 WBC (Bld) 25.4 % Normal 20.5-60.0 [facility] Comment on above: Performed By: #### B FINANCIAL PROFESSIONAL #### [facility] [address] [place] [address] Dr. Erasmo Smith MANUAL DIFF REQ NO Normal [facility] Comment on above: Performed By: #### B FINANCIAL PROFESSIONAL #### [facility] [address] [place] [address] Dr. Erasmo Smith MCH (RBC) [Entitic mass] 25.5 pg Critically low 26.7-34.0 [facility] Comment on above: Performed By: #### B FINANCIAL PROFESSIONAL #### [facility] [address] [address] [address] Erasmo Smith MCHC (RBC) [Mass/Vol] 32.3 g/dL Normal 29.9-35.2 [facility] Comment on above: Performed By: #### B FINANCIAL PROFESSIONAL #### [facility] [address] [place] [address] Dr. Erasmo Smith MCV (RBC) [Entitic vol] 78.8 fL Critically low 81.0-99.0 [facility] Comment on above: Performed By: #### B FINANCIAL PROFESSIONAL #### [facility] [address] [place] [address] Dr. Erasmo Smith MONO # 0.7 103/ul Normal 0.3-0.8 [facility] Comment on above: Performed By: #### B FINANCIAL PROFESSIONAL #### [facility] [address] [place] [address] Dr. Erasmo Smith Monocytes/100 WBC (Bld) 7.5 % Normal 1.7-12.0 [facility] Comment on above: Performed By: #### B FINANCIAL PROFESSIONAL #### [facility] [address] [place] [address] Dr. Erasmo Smith NEUT # 5.9 103/ul Normal 1.4-6.5 [facility] Comment on above: Performed By: #### B FINANCIAL PROFESSIONAL #### [facility] [address] [place] [address] Dr. Erasmo Smith Neutrophils/100 WBC (Bld) 63.9 % Normal 43.0-75.0 [facility] Comment on above: Performed By: #### B FINANCIAL PROFESSIONAL #### [facility] [address] [place] [address] Dr. Erasmo Smith Platelet mean volume (Bld) [Entitic vol] 9.0 fL Critically low 9.5-13.5 [facility] Comment on above: Performed By: #### B FINANCIAL PROFESSIONAL #### [facility] [address] [place] [address] Dr. Erasmo Smith PLT 305 103/ul Normal 150-450 [facility] Comment on above: Performed By: #### B FINANCIAL PROFESSIONAL #### [facility] [address], [place] [address] Dr. Erasmo Smith RBC 4.44 106/ul Normal 4.20-5.40 [facility] Comment on above: Performed By: #### B FINANCIAL PROFESSIONAL #### [facility] [address], [place] [address] Dr. Erasmo Smith WBC 9.2 103/ul Normal 4.0-11.0 [facility] Comment on above: Performed By: #### B FINANCIAL PROFESSIONAL #### [facility] [address], [place] [address] CHEST WO CONon [...] PAULA DELGADO Date: 2022-05-27 15:27 Normal [facility] HEMOGLOBINon 04-20-2022 Hemoglobin (Bld) [Mass/Vol] 10.6 g/dL Critically low 12.0-16.0 [facility] Comment on above: Performed By: #### H GB ####[facility] [address] [place], [place] [address]YcDr. Erasmo Smith CULTURE SPUTUMon 04-02-2022 CULTURE SPUTUM Isolate 1 Pseudomonas aeruginosa Light growth of ORGANISM 1 Pseudomonas aeruginosa ANTIBIOTIC M.I.C RX STATUS Piperacillin/Tazobac saez 8 S F Ceftazidime 2 S F Imipenem 1 S F Amikacin <=2 S F Gentamicin <=1 S F Tobramycin <=1 S F Ciprofloxacin <=0.25 S F Levofloxacin 0.25 S F Normal [facility] Comment on above: Performed By: #### S PUTCX ####[facility] [address] [address]Dr. Erasmo Smith CYTOLOGYon 03-30-2022 SENT TO REF LAB 03/31/22 Normal [facility] Comment on above: Performed By: #### C YTO #### [facility] [address] [place] [address] Dr. Erasmo Smith SPUTUM GRAM STAINon 03-30-20 COMMENTS Normal [facility] Comment on above: Performed By: #### B FINANCIAL PROFESSIONAL #### [facility] [address] [place] [address] Dr. Erasmo Smith DIPHTHEROIDS [facility] Comment on above: Performed By: #### B FINANCIAL PROFESSIONAL #### [facility] [address] [address] [address] Erasmo Smith EPITHELIALS <25 [facility] Comment on above: Performed By: #### B FINANCIAL PROFESSIONAL #### [facility] [address] [place] [address] Dr. Erasmo Smith FUNGAL ELEMENTS Normal [facility] Comment on above: Performed By: #### B FINANCIAL PROFESSIONAL #### [facility] [address] [place] [address] Dr. Erasmo CINTRON NEG BACILLI FEW [facility] Comment on above: Performed By: #### B FINANCIAL PROFESSIONAL #### [facility] [address] [place] [address] Dr. Erasmo CINTRON NEG DIPPLOCOCCI [facility] Comment on above: Performed By: #### B FINANCIAL PROFESSIONAL #### [facility] [address] [place] [address] Dr. Erasmo CINTRON POS BACILLI [facility] Comment on above: Performed By: #### B FINANCIAL PROFESSIONAL #### [facility] [address] [address] [address] Erasmo Smith GRAM POSITIVE COCCI MANY Normal [facility] Comment on above: Performed By: #### B FINANCIAL PROFESSIONAL #### [facility] [address] [address] [address] Erasmo Smith WBC (Bld) [#/Vol] 10*3/uL Normal [facility] Comment on above: Performed By: #### B FINANCIAL PROFESSIONAL #### [facility] [address] [address] [address] Erasmo Smith SPUTUM CULTUREon 03-01-2022 Epithelial cells LM Ql (Urine sed) Few Normal [facility] Comment on above: Performed By: #### C XSPTUM ####[facility] [address] [place], [place] [address]DrMeena Smith Gram Stain Evaluation Comment Normal [facility] Comment on above: Result Comment: This specimen is of good quality and is acceptable for routine bacterial culture. Performed By: #### C XSPTUM ####[facility] [address] [place], [place] [address]Dr. Erasmo Smith Lower Respiratory Culture Final report [facility] Comment on above: Performed By: #### C XSPTUM ####[facility] [address] [place], [place] [address]Dr. Erasmo Smith Result 1 Comment Normal [facility] Comment on above: Result Comment: Few gram positive cocci Performed By: #### C XSPTUM ####[facility] [address] [address]Dr. Erasmo Smith Result Comment: Rout ine respiratory adria Result 2 Normal [facility] Comment on above: Performed By: #### C XSPTUM ####[facility] [address] [place], [place] [address]Dr. Erasmo Smith Result 3 Normal [facility] Comment on above: Performed By: #### C XSPTUM ####[facility] [address] [place], [place] [address]Dr. Erasmo Smith Result 4 Normal [facility] Comment on above: Performed By: #### C XSPTUM ####[facility] [address] [id number]. Erasmo Smith White Blood Cells Few Normal [facility] Comment on above: Performed By: #### C XSPTUM ####[facility] [address] [place], [place] [address]FzDr. Erasmo Smith BNPon 02-24-2022 Natriuretic peptide B (Bld) [Mass/Vol] 319.0 pg/mL Normal <=900.0 [facility] Comment on above: Performed By: #### B FINANCIAL PROFESSIONAL #### [facility] [address] [place] [address] Dr. Erasmo Smith CBC AUTO DIFFon 02-24-2022 BASO # 0.1 103/ul Normal 0.0-0.1 [facility] Comment on above: Performed By: #### C MREP #### [facility] [address] [place] [address] Dr. Erasmo Smith Basophils/100 WBC (Bld) 0.5 % Normal 0.2-2.0 [facility] Comment on above: Performed By: #### C MREP #### [facility] [address] [place] [address] Dr. Erasmo Smith EO # 0.3 103/ul Normal 0.0-0.7 [facility] Comment on above: Performed By: #### C MREP #### [facility] [address] [place] [address] Dr. Erasmo Smith Eosinophils/100 WBC (Bld) 3.1 % Normal 0.9-7.0 [facility] Comment on above: Performed By: #### C MREP #### [facility] [address] [place] [address] Dr. Erasmo Smith Erythrocyte distribution width (RBC) [Ratio] 15.1 % Critically high 11.0-15.0 [facility] Comment on above: Performed By: #### C MREP #### [facility] [address] [place] [address] Dr. Erasmo Smith Hematocrit (Bld) [Volume fraction] 33.9 % Critically low 36.0-48.0 [facility] Comment on above: Performed By: #### C MREP #### [facility] [address] [place] [address] Dr. Erasmo Smith Hemoglobin (Bld) [Mass/Vol] 10.7 g/dL Critically low 12.0-16.0 [facility] Comment on above: Performed By: #### C MREP #### [facility] [address] [place] [address] Dr. Erasmo Smith IG # 0.03 10e3/ul Normal 0.00-0.03 [facility] Comment on above: Performed By: #### C MREP #### [facility] [address] [place] [address] Dr. Erasmo Smith IG % 0.3 % Normal 0.0-0.5 [facility] Comment on above: Performed By: #### C MREP #### [facility] [address] [place] [address] Dr. Erasmo Smith LYMPH # 2.8 103/ul Normal 1.2-3.8 [facility] Comment on above: Performed By: #### C MREP #### [facility] [address] [place] [address] Dr. Erasmo Smith Lymphocytes/100 WBC (Bld) 30.6 % Normal 20.5-60.0 [facility] Comment on above: Performed By: #### C MREP #### [facility] [address] [place] [address] Dr. Erasmo Smith MANUAL DIFF REQ NO Normal [facility] Comment on above: Performed By: #### C MREP #### [facility] [address] [place] [address] Dr. Erasmo Smith MCH (RBC) [Entitic mass] 26.9 pg Normal 26.7-34.0 [facility] Comment on above: Performed By: #### C MREP #### [facility] [address] [place] [address] Dr. Erasmo Smith MCHC (RBC) [Mass/Vol] 31.6 g/dL Normal 29.9-35.2 [facility] Comment on above: Performed By: #### C MREP #### [facility] [address] [place] [address] Dr. Erasmo Smith MCV (RBC) [Entitic vol] 85.2 fL Normal 81.0-99.0 [facility] Comment on above: Performed By: #### C MREP #### [facility] [address] [place] [address] Dr. Erasmo Smith MONO # 0.7 103/ul Normal 0.3-0.8 [facility] Comment on above: Performed By: #### C MREP #### [facility] [address] [place] [address] Dr. Erasmo Smith Monocytes/100 WBC (Bld) 7.9 % Normal 1.7-12.0 [facility] Comment on above: Performed By: #### C MREP #### [facility] [address] [place] [address] Dr. Erasmo Smith NEUT # 5.3 103/ul Normal 1.4-6.5 [facility] Comment on above: Performed By: #### C MREP #### [facility] [address] [place] [address] Dr. Erasmo Smith Neutrophils/100 WBC (Bld) 57.6 % Normal 43.0-75.0 [facility] Comment on above: Performed By: #### C MREP #### [facility] [address] [place] [address] Dr. Erasmo Smith Platelet mean volume (Bld) [Entitic vol] 9.0 fL Critically low 9.5-13.5 [facility] Comment on above: Performed By: #### C MREP #### [facility] [address] [place] [address] Dr. Erasmo Smith PLT 249 103/ul Normal 150-450 [facility] Comment on above: Performed By: #### C MREP #### [facility] [address] [place] [address] Dr. Erasmo Smith RBC 3.98 106/ul Critically low 4.20-5.40 [facility] Comment on above: Performed By: #### C MREP #### [facility] [address] [address] [address] Erasmo Smith WBC 9.1 103/ul Normal 4.0-11.0 [facility] Comment on above: Performed By: #### C MREP #### [facility] [address] [address] [address] Erasmo Smith CTA CHEST WO W CONon 022 CTA CHEST WO W CON EXAMINATION: [...] by: PAULA DELGADO Date: 2022-02-24 18:24 Normal [facility] D-DIMERon 02-24-2022 D-DIMER 1.36 mg/L FEU Critically high <=0.59 [facility] Comment on above: Performed By: #### D DIM #### [facility] [address] [address] [address] Erasmo Smith D-DIMER COMMENTS SEE BELOW Normal [facility] Comment on above: Result Comment: Incr [...] hospitalization. Performed By: #### D DIM #### [facility] [address] [place] [address] Dr. Erasmo Smith PROF 14(COMP METB)on 022 Albumin [Mass/Vol] 3.6 g/dL Normal 3.4-5.0 [facility] Comment on above: Performed By: #### C MREP #### [facility] [address] [place] [address] Dr. Erasmo Smith Albumin/Globulin [Mass ratio] 0.8 {ratio} Normal [facility] Comment on above: Performed By: #### C MREP #### [facility] [address] [place] [address] Dr. Erasmo Smith ALP [Catalytic activity/Vol] 95 U/L Normal 46-116 [facility] Comment on above: Performed By: #### C MREP #### [facility] [address] [place] [address] Dr. Erasmo Smith ALT [Catalytic activity/Vol] 45 U/L Normal 14-59 [facility] Comment on above: Performed By: #### C MREP #### [facility] [address] [place] [address] Dr. Erasmo Smith Anion gap [Moles/Vol] 15.9 mmol/L Normal [facility] Comment on above: Performed By: #### C MREP #### [facility] [address] [place] [address] Dr. Erasmo Smith AST [Catalytic activity/Vol] 33 U/L Normal 15-37 [facility] Comment on above: Performed By: #### C MREP #### [facility] [address] [address] [address] Erasmo Smith Bilirubin [Mass/Vol] 0.5 mg/dL Normal 0.2-1.0 [facility] Comment on above: Performed By: #### C MREP #### [facility] [address] [address] [address] Erasmo Smith Calcium [Mass/Vol] 9.1 mg/dL Normal 8.5-10.1 [facility] Comment on above: Performed By: #### C MREP #### [facility] [address] [address] [address] Erasmo Smith Chloride [Moles/Vol] 103 mmol/L Normal 98-107 [facility] Comment on above: Performed By: #### C MREP #### [facility] [address] [place] [address] Dr. Erasmo Smith CO2 [Moles/Vol] 25.1 mmol/L Normal 21.0-32.0 [facility] Comment on above: Performed By: #### C MREP #### [facility] [address] [place] [address] Dr. Erasmo Smith Creatinine [Mass/Vol] 0.77 mg/dL Normal 0.55-1.02 [facility] Comment on above: Performed By: #### C MREP #### [facility] [address] [address] [address] Erasmo Smith EGFR-AF NAURUAN >60 Normal >=60 [facility] Comment on above: Performed By: #### C MREP #### [facility] [address] [place] [address] Dr. Erasmo Smith EGFR-NON AF NAURUAN >60 Normal >=60 [facility] Comment on above: Performed By: #### C MREP #### [facility] [address] [place] [address] Dr. Erasmo Smith Globulin (S) [Mass/Vol] 4.3 g/dL Normal [facility] Comment on above: Performed By: #### C MREP #### [facility] [address] [address] [address] Erasmo Smith Glucose [Mass/Vol] 92 mg/dL Normal 74-[address] [facility] Comment on above: Performed By: #### C MREP #### [facility] [address] [address] [address] Erasmo Smith Potassium [Moles/Vol] 4.0 mmol/L Normal 3.5-5.1 [facility] Comment on above: Performed By: #### C MREP #### [facility] [address] [address] [address] Erasmo Smith Protein [Mass/Vol] 7.9 g/dL Normal 6.4-8.[address] [facility] Comment on above: Performed By: #### C MREP #### [facility] [address] [address] [address] Erasmo Smith Sodium [Moles/Vol] 140 mmol/L Normal 136-145 [facility] Comment on above: Performed By: #### C MREP #### [facility] [address] [address] [address] Erasmo Smith Urea nitrogen [Mass/Vol] 17.0 mg/dL Normal 7.0-18.0 [facility] Comment on above: Performed By: #### C MREP #### [facility] [address] [address] [address] Erasmo Smith Urea nitrogen/Creatinine [Mass ratio] 22.1 mg/mg Normal [facility] Comment on above: Performed By: #### C MREP #### [facility] [address] [address] [address] Erasmo Smith PROTIMEon 02-24-2022 INR Coag (PPP) [Relative time] 2.28 {INR} Normal [facility] Comment on above: Performed By: #### P T, PTT ####[facility] [address] [address]Dr. Erasmo Smith INR GUIDELINES SEE BELOW Normal [facility] Comment on above: Result Comment: ABNER RED INR: 2.0 - 3.0 CONDITIONS NOT LISTED BELOW 2.5 - 3.5 FOR PROSTHETIC HEART VALVE REPLACEMENT 2.5 - 3.5 RECURRENT THROMBOSIS Performed By: #### P T, PTT ####[facility] [address] [place], [place] [address]JzDr. Erasmo Smith PT Coag (PPP) [Time] 23.3 s Critically high 9.0-11.6 [facility] Comment on above: Performed By: #### P T, PTT ####[facility] [address] [place], [place] [address]VvDr. Erasmo Smith PTTon 02-24-2022 aPTT Coag (Bld) [Time] 34.7 s Normal 22.3-36.2 [facility] Comment on above: Performed By: #### P T, PTT ####[facility] [address] [place], [place] [address]DjMeena Smith TROPONIN, HIGH SENSITIVITYon 02-24-2022 HSTROP 6.6 pg/mL Normal 4.0-51.3 [facility] Comment on above: Result Comment: CUT- OFF POINTS HAVE BEEN ESTABLISHED BASED ON THE FOURTH UNIVERSAL DEFINITIONS OF MYOCARDIAL INFARCTION. THE UPPER REFERENCE LIMIT (URL) OF TROPONIN, DEFINED THE 99TH PERCENTILE OF cTnI DISTRIBUTION IN A REFERENCE POPULATION, HAS BEEN CONFIRMED THE DECISION THRESHOLD FOR OK DIAGNOSIS. Performed By: #### C MREP #### [facility] [address], [place] [address] Dr. Erasmo Smith PROTHROMBIN TIMEon INR Coag (PPP) [Relative time] 1.2 {INR} High 0.86-1.16 [facility] Comment on above: Result Comment: INR Theraputic Range: 2.0-3.5 Performed at [facility] [id number] [place] [id number] PT Coag (PPP) [Time] 12.7 s Normal 9.3-12.7 [facility] ANTICOAGULANT COUMADIN Normal [facility] Vital Signs Date Time Vital Sign Value Performing Clinician Facility 03-02-2024 11:51-0400 Blood Pressure Location Ortega ALEXANDER [facility] [place] 03-02-2024 11:51-0400 Diastolic blood pressure 75 mm[Hg] Ortega PARKL [facility] [place] 03-02-2024 11:51-0400 Heart rate 71 /min Ortega PARKL [facility] 03-02-2024 11:51-0400 Respiratory rate 16 /min Ortega PARKL [facility] 03-02-2024 11:51-0400 Systolic blood pressure 118 mm[Hg] Ortega PARKL [facility] 10-07-2021 16:00-0500 Body height 146.69 cm Hong Jimenezdevon Other [employer] Other 10-07-2021 16:00-0500 Body mass index (BMI) [Ratio] 51.01 kg/m2 Hong Nevarez Other [employer] Other 10-07-2021 16:00-0500 Body weight 109.77 kg Hong Nevarez Other [employer] Other 08-26-2021 15:15-0500 Body height 146.69 cm Hong Nevarez Other [employer] Other 08-26-2021 15:15-0500 Body mass index (BMI) [Ratio] 51.07 kg/m2 Hong Nevarez Other [employer] Other 08-26-2021 15:15-0500 Body weight 109.91 kg Hong Nevarez Other [employer] Other Encounters Encounter Date Encounter Type Care Provider Facility Start: 03-29-2024 End: 03-29-2024 Patient encounter procedure MD Shaikh Denis Work Phone: [facility] Start: 03-29-2024 End: 03-29-2024 ambulatory MD Shaikh Denis Work Phone: [facility] Work Phone: Start: 03-12-2024 End: 03-12-2024 ambulatory SHAIKH CIRA Not Available Start: 03-07-2024 End: 03-07-2024 ambulatory Ortega Dario CATHERINE Facility:[id number] Start: 03-02-2024 End: 03-02-2024 ambulatory Ortega Bishop NILL Facility:[facility] Start: 03-02-2024 End: 03-02-2024 Patient encounter procedure Ortega Dario CATHERINE [facility] [place] Start: 03-01-2024 ambulatory Ortega ALEXANDER Facility: [facility] [place] Start: 02-27-2024 End: 02-27-2024 ambulatory SHAIKH CIRA Not Available Start: 01-17-2024 End: 01-17-2024 ambulatory [facility]ICAN[facility] Start: 12-29-2023 End: 12-29-2023 ambulatory SHAIKH CIRA Not Available Start: 12-27-2023 End: 12-27-2023 ambulatory [facility] Start: 12-26-2023 End: 12-27-2023 ambulatory Miguel Murphy MD Facility:[facility] Start: 12-05-2023 End: 12-06-2023 ambulatory Miguel Murphy MD Facility:[facility] Start: 11-16-2023 End: 11-16-2023 ambulatory Kayley Reeder Facility:[facility] Start: 11-07-2023 End: 11-07-2023 ambulatory SHAIKH CIRA Not Available Start: 10-17-2023 Cristobal Denis MD Work Phone: [facility] Start: 10-17-2023 Bamboo flowsheet Shaikh Cira CUBA Work Phone: [facility] Start: 10-17-2023 End: 10-17-2023 ambulatory SHAIKH CIRA Not Available Start: 10-11-2023 End: 10-11-2023 ambulatory MD Shaikh Denis Work Phone: [facility] Work Phone: Start: 10-11-2023 End: 10-11-2023 Patient encounter procedure MD Shaikh Denis Work Phone: [facility] [place] Work Phone: Start: 09-08-2023 End: 09-08-2023 Patient encounter procedure MD Shaikh Denis Work Phone: [facility]-Pacemaker Check Start: 09-08-2023 End: 09-08-2023 ambulatory MD Shaikh Denis Work Phone: [facility] Work Phone: Start: 09-06-2023 End: 09-06-2023 ambulatory SHAIKH CIRA Not Available Start: 09-06-2023 Patient encounter procedure Shaikh Cira CUBA Work Phone: [facility] Start: 07-08-2023 End: 07-08-2023 ambulatory [facility] Start: 07-05-2023 End: 07-05-2023 ambulatory [facility] Start: 04-11-2023 End: 04-12-2023 ambulatory Miguel Murphy MD Facility:[facility] Start: 01-31-2023 End: 02-01-2023 ambulatory ANDRIUS GIEDRAITIS Facility:[facility] Start: 01-28-2023 End: 01-29-2023 ambulatory ANDRIUS GIEDRAITIS Facility:[facility] Start: 01-10-2023 End: 02-09-2023 ambulatory SHAIKH Kymberly DENIS Facility:[facility] Start: 12-16-2022 End: 12-17-[address] DOCTOR KENNEDY Facility:[facility] Start: 12-13-2022 End: 01-07-[address] LUISANA FISHER . Facility:[facility] Start: 2022 End: 12-03-2022 Evaluation and management of inpatient KAYLEY HOLMAN . Facility:[facility] Start: 11-26-2022 End: 11-27-2022 ambulatory [...] 10-07-2021 End: 10-07-2021 ambulatory Hong Nevarez Other [employer] Other Start: 10-07-2021 Office outpatient visit 15 minutes Hong Nevarez [facility] Gastroenterology Start: 08-26-2021 End: 08-26-2021 ambulatory Hong Nevarez Other [employer] Other Start: 08-26-2021 Office outpatient ne w 45 minutes Hong Nevarez [facility] Gastroenterology Start: 10-11-2020 End: 10-13-2020 Evaluation and management of inpatient ZANE MAYNOR Facility:[facility] Procedures Date Procedure Procedure Detail Performing [...] on above: 06/2012 Arthroscopy of shoulder Brice ALEXANDER Comment on above: left shoulder tear r epaired 08/25 Cardiac catheter (ph ysical object) Ortega ALEXANDER Comment on above: 12/21/ mild CAD Colonoscopy Ortega ALEXANDER Grivy Comment on above: 2012 repeat 10 years Ligation of fallopian tube Nathan ALEXANDER Repair of musculoten dinous cuff of shoulder [facility] Comment on above: right Total abdominal hyst erectomy with bilateral salpingo-oophorectomy [facility] Plan of Treatment Date Care Activity Detail Author Start: 09-12-2027 Screening for malign ant neoplasm of colon [facility] Start: 09-06-2024 Medicare Annual Well ness (AWV) Medicare Annual Wellness (AWV) [facility] Start: 11-07-2023 End: 11-07-2023 Patient encounter procedure 11/07/2023 2:30 PM EST Office Visit [facility] [address] [place] [phone] Shaikh Denis MD [address] [place] [phone] [facility] Start: 10-17-2023 End: 10-17-2023 Patient encounter procedure 10/17/2023 10:15 AM EST Office Visit [facility] [address] [place] [phone] Shaikh Denis MD [address] [place] [phone] Arrived [facility] Comment on above: Arrived Start: 1945 Screening for malign ant neoplasm of colon [facility] Immunizations Immunization Date Immunization Notes Care Provider Fa cili 08-25-2023 influenza virus vacc ine, unspecified formulation Ortega NILL [facility] [place] 07-08-2022 influenza virus vacc ine, unspecified formulation Ortega NILL [facility] 08-20-2021 influenza virus vacc ine, unspecified formulation Ortega NILL [facility] 08-20-2021 pneumococcal polysaccharide vaccine, 23 valent Ortega NILL [facility] 11-18-2020 SARS-CoV-2 (COVID-19 ) mRNA-1273 vaccine Ortega NILL [facility] 10-20-2020 SARS-CoV-2 (COVID-19 ) mRNA-1273 vaccine Ortega NILL [facility] 08-04-2020 influenza virus vacc ine, unspecified formulation Ortega NILL [facility] 08-04-2020 pneumococcal conjuga te vaccine, 13 valent Ortega NILL [facility] 08-06-2019 influenza virus vacc ine, unspecified formulation Ortega NILL [facility] 07-05-2017 influenza virus vacc ine, unspecified formulation Ortega NILL [facility] 07-05-2017 pneumococcal conjuga te vaccine, 13 valent Ortega NILL [facility] 06-29-2016 influenza virus vacc ine, unspecified formulation Ortega PARKL [facility] 06-25-2015 influenza virus vacc ine, unspecified formulation Ortega PARKL [facility] 06-12-2015 influenza virus vacc ine, unspecified formulation Ortega PARKL [facility] 07-12-2014 influenza virus vacc ine, unspecified formulation Ortega NILL [facility] 08-07-2013 influenza virus vacc ine, unspecified formulation Ortega PARKL [facility] Payers Date Payer Category Payer Medicare [id number] 2023 Self-pay [id number] 2023 Managed Care HMO (unspecified) [employer]ET[employer] AETNA [id number] 2023-Present [address] [place] [address] HMO [id number] 2022 Private Health Insurance 2007 Medicare [id number]. [id number] 1959 Medicare [id number] 1959 Private Health Insurance [facility] [id number] 1945 Unknown [id number] 2.16.840.1.263100.3.579.2. 647 1945 Unknown [id number] 2.16.840.1.370013.3.579.2. 593 1947 Unknown [id number] 2.16.840.1.581391.3.579.2. 593 1947 Unknown [id number] 2.16.840.1.093669.3.579.2. 593 1947 Unknown [id number] 2.16.840.1.497504.3.579.2. 593 1947 Unknown [id number] 2.16.840.1.624855.3.579.2. 593 1947 Unknown [id number] 2.16.840.1.046360.3.579.2. 593 1947 Unknown [id number] 2.16.840.1.852988.3.579.2. 593 1947 Unknown [id number] 2.16.840.1.626427.3.579.2. 593 1947 Unknown [id number] 2.16.840.1.526045.3.579.2. 593 1947 Unknown [id number] 2.16840.1.489323.3.579.2. 593 1947 Unknown [id number] 2.16.840.1.331491.3.579.2. 593 1947 Unknown [id number] 2.840.1.617893.3.579.2. 593 1947 Unknown [id number] 2.16.840.1.053492.3.579.2. 593 1947 Unknown [id number] 2.16840.1.520138.3.579.2. 593 1947 Unknown [id number] 2.16.840.1.415592.3.579.2. 593 1947 Unknown [id number] 2.16840.1.657523.3.579.2. 593 1947 Unknown [id number] 2.16.840.1.742427.3.579.2. 593 1947 Unknown [id number] 2.16.840.1.477682.3.579.2. 593 1947 Unknown [id number] 2.16.840.1.593650.3.579.2. 593 1947 Unknown [id number] 2.16.840.1.857510.3.579.2. 593 1947 Unknown [id number] 2.16.840.1.936217.3.579.2. 593 1947 Unknown [id number] 2.16.840.1.876989.3.579.2. 593 1947 Unknown [id number] 2.16.840.1.951845.3.579.2. 593 1947 Unknown [id number] 2.16.840.1.715406.3.579.2. 593 1947 Unknown [id number] 2.16.840.1.144739.3.579.2. 593 1947 Unknown [id number] 2.16.840.1.167043.3.579.2. 593 1947 Unknown [id number] 2.16.840.1.378937.3.579.2. 196 1947 Unknown [id number] 2.16.840.1.860792.3.579.2. 196 1947 Unknown [id number] 2.16.840.1.403353.3.579.2. 196 1947 Unknown [id number] 2.16.840.1.548787.3.579.2. 196 1947 Unknown [id number] 2.16.840.1.952758.3.579.2. 727 1947 Unknown [id number] 2.16.840.1.334065.3.579.2. 727 1947 Unknown [id number] 2.16.840.1.174234.3.579.2. 1259 1947 Unknown [id number] 2.16.840.1.158820.3.579.2. 1259 1947 Unknown [id number] 2.16.840.1.454615.3.579.2. 1259 1947 Unknown [id number] 2.16.840.1.513834.3.579.2. 1259 1947 Unknown [id number] 2.16.840.1.582871.3.579.2. 1259 1947 Unknown [id number] 2.16.840.1.113862.3.579.2. 1259 Medicare Medicare Outpatient [id number] 1A [id number] Unknown [place] [id number] Unknown [id number] 2.16.840.1.269287.3.579.2. 531 Unknown [id number] 2.16.840.1.261351.3.579.2. 531 Unknown [id number] 2.16.840.1.771583.3.579.2. 531 Unknown [id number] 2.16.840.1.563972.3.579.2. 531 Social History Date Type Detail Facility Start: 08-30-2023 End: 09-06-2023 Sex Assigned At [facility] Start: 1945 Sex Assigned At Female F [facility] Start: 08-18-2023 End: 03-02-2024 Tobacco smoking status MAIS Ex-smoker [facility] History of tobacco use Current smoker [facility] History of tobacco use Cigarette Smoker [facility] Start: 09-02-2023 Alcohol intake Not Asked [facility] Start: 08-30-2023 End: 09-06-2023 History of Social function [facility] Within the last year , have you been afraid of your partner or ex-partner? No [facility] How often do you att end tenriism or bahai services? Patient refused [facility] Do you belong to any clubs or organizations such as tenriism groups, unions, fraternal or athletic groups, or [...] At Not on file [facility] Start: 04-27-2013 Tobacco smoking stat [facility] Never smoked tobacco (finding) [facility] Functional Status Date Assessment Result Facility 03-02-2024 Functional Status N/A [facility] [place] Clinical Notes 08-26-2021 to 03-02-2024 Note Date & Type Note Facility 03-02-2024 Note Chief Complaint consultation for anemia HPI Staff 78 year old female presents on consultation from [facility] for anemia. Labs completed yesterday with [...] PSVT, spinal stenosis, cervical radiculopathy; referred from [facility] for anemia, low iron, and positive [...] (paroxysmal supraventricular t (more content not included)... [facility] Comment on above: Result Comment: Elec tronically [...] All other systems reviewed and are negative. [facility] 01-17-2024 Note Cardiovascular [facility] SUBJECTIVE Chief Complaint Patient presents with Atrial Fibrillation Breann Starks is a 78 y.o. female here for follow-up. HPI PMHx: A-fib, atrial tachycardia s/p ablation 2005, sick sinus syndrome s/p PPM 10/2020 dual-chamber [employer], COPD, mild CAD s/p cardiac cath 2010, SHAWANDA noncompliant with mask, and obesity. She has been doing well since last seen. No significant changes. Denies c/o CP, dyspnea, orthopnea, PND, LE edema, dizziness/LH, palpitations, syncope. Patient Active Problem List Diagnosis Disorder of bursae of shoulder region Chronic obstructive lung disease (CMS/HCC) Atherosclerosis of [place] coronary artery of [place] heart without angina pectoris Diaphragmatic hernia Edema [...] Former Years: 43 Types: Cigarettes Quit date: 2000 Years since quittin.3 Smokeless tobacco: Never Substance [...] Final Monocytes Absolu (more content not included)... [facility] 07-05-2023 Note [place] [facility] Consult Note Reason for visit: Afib. [...] sick sinus syndrome s/p PPM 10/2020 dual-chamber [employer], COPD, mild CAD s/p cardiac cath [...] could not afford DOAC. Patient underwent dual-chamber [employer] pacemaker placement on 10/13/2020. On subsequent [...] both knees Hypocalcemi (more content not included)... [facility] 10-07-2021 Evaluation note Encounter Date Diagnosis Assessment Notes Sep, LOJA (nonalcoholic steatohepatitis ) (ICD-10 - K75.81) OBTAIN FIBROSURE RESULTS FROM [facility] REASSURANCE ON RESULTS PT ENCOURAGED WEIGHT LOSS RTO ONE YEAR WITH LABS ANNUALLY Sep, Unspecified cirrhosis of liver (ICD-10 - K74.60) [employer] Other 12-15-2021 Evaluation note* Encounter Date Diagnosis Assessment Notes Treatment Notes Treatment Clinical Notes Aug, Nonalcoholic steatohepatitis (LOJA) (ICD-10 - K75.81) RTO 6-8 WEEKS Aug, Unspecified cirrhosi s of liver (ICD-10 - K74.60) Aug, Morbid obesity (ICD- 10 - E66.01) [employer] Other Evaluation + Plan note No data available for this section [facility] [place] Evaluation noteNo assessment information available [facility] Work Phone: History general Narrative - [...] Surgical History pacemaker Hospitalization History see above [employer] Other Hospital Discharge instructions No data available for this section [facility] [place] Progress note No data available for this section [facility] [place] Summary Purpose Family History No Family History Records Found Relationship Condition Age at Onset Recorded Date/T sarah father Unknown mother Unknown Advance Directives No Advanced Directives Records Found Advance Directive Response Recorded Date/ Time Advance Directives No May 2:01pm Advance Directive Response Recorded Date/ Time Advance Directives No May 3:01pm Chief Complaint and Reason for Visit Chief Complaint mri clearance Chief Complaint mri clearance lumbar radiculpathy Chief Complaint m25.512 Additional Source Comments INFORMATION SOURCE (unrecogn ized section and content) DATE CREATED AUTHOR 10/23/2021 [facility] DATE CREATED AUTHOR AUTHOR'S ORGANIZ ATION 01/22/2022 [facility] DATE CREATED AUTHOR AUTHOR'S ORGANIZ ATION 02/18/2023 [facility] DATE CREATED AUTHOR AUTHOR'S ORGANIZ ATION 01/17/2024 [facility] DATE CREATED AUTHOR AUTHOR'S ORGANIZ ATION 03/08/2024 [facility] DATE CREATED AUTHOR AUTHOR'S ORGANIZ ATION 03/11/2024 [facility] DATE CREATED AUTHOR AUTHOR'S ORGANIZ ATION 03/13/2024 [facility] EPIC DATE CREATED AUTHOR AUTHOR'S ORGANIZ ATION 04/02/2024 [facility] REASON FOR VISIT (unrecogniz ed section and [...] October 11, 2023 End: October 11, 2023 [employer] Analyst Relationship Specialty Start Date End Date Shaikh Denis MD PCP - General Internal Medicine 04/05/23 Team Status: Inactive Member Role Status Dates Shaikh Cira MD Primary Care Provider Active Start: March 29, 2024 End: March 29, 2024 James Jones DO Attending Provider Active S tart: March 29, 2024 End: March 29, 2024 Goals (unrecognized section and content) Goals may [...] BE BASED ON THE PRIMARY CLINICAL RECORDS. [employer] provides no warranty or guarantee of the accuracy or completeness of information in this document.
[2024-04-02 09:48] VITALS: BP 140/69; PULSE 60; TEMP 36.7; O2SAT 96
[2024-04-02 10:24] VITALS: BP 127/65; BP 165/74; PULSE 60; PULSE 63; O2SAT 96
--- NOTE | 2024-04-02 10:26 | P.ON_ITS ---
Date of procedure: 04/02/24 Pre-op diagnosis: Pain due to lumbar stenosis with neurogenic claudication Post-op diagnosis: same as pre-op Procedure: Procedure: Left L4-5, L5-S1 transforaminal epidural steroid injection Medications: Bupivacaine 0.25% 2cc, lidocaine 2% 1cc, kenalog 80mg The patient was seen and examined in the preoperative holding area.? Informed consent was obtained and placed on the chart.? Patient was brought to the medical procedure unit and placed in the prone position where a timeout was completed verifying the correct patient, procedure site, position, and planned special equipment using sterile aseptic technique.? Under direct fluoroscopic visualization a 25-gauge Quincke tipped spinal needle was advanced to the designated neural foramen where contrast dye was injected to show adequate spread.? The needle was inserted at level left L4-5. There was no evidence of vascular or adverse uptake.? Epidural spread was appreciated.? The above- mentioned injectate was then placed in a 1.5 mL aliquot preceded by negative aspiration.? The needle was removed. The needle was inserted and the procedure repeated at level left L5-S1.? The surgery site was covered.? Patient was taken to the postprocedural recovery area and monitored for an appropriate length of time before found suitable for discharge in the accompaniment of a responsible adult. Anesthesia: Local Surgeon: Miguel Murphy Pathology: none sent Condition: stable Disposition: no change
[2024-04-02] MEDS: TRIAMCINOLONE ACETONIDE 40 MG/ML VIAL 80 MG INJ (10:28)
[2024-04-02] MEDS: BUPIVACAINE HCL 0.25% PF 25 MG/10 ML VIAL INJ (10:28)
[2024-04-02] MEDS: 0.9 % SODIUM CHLORIDE 10 ML SYRINGE - SALINE FLUSH INJ (10:28)
[2024-04-02] MEDS: LIDOCAINE HCL 2% 400 MG/20 ML MDV 3 ML INJ (10:28)
[2024-04-02] MEDS: IOHEXOL 240 MG/ML - 10 ML VIAL 24 MG INJ (10:28)
== END 2024-04-02 10:59 | disposition home or self-care (01) ==
PROVIDERS: PCP Internal Medicine; Visit Provider Anesthesiology
DX: M48.062 Spinal stenosis, lumbar region with neurogenic claudication (principal); R52 Pain, unspecified
CPT/HCPCS: 64483; 64484; J0665; J3301; Q9966

== ENCOUNTER 2024-04-16 08:24 | Day surgery (SDC) | payer MEDICARE, SELFPAY ==
--- OUTSIDE RECORDS SUMMARY | 2024-04-16 08:29 | XMS_ITS | CCD ---
Author Organization 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 Name Role Phone ZANE MCGUIRE Admitting Unavailable YANCY MAHAN Referring Unavailable LUISANA FISHER Primary Care Unavailable ZANE MCGUIRE Attending Unavailable YANCY MAHAN Surgeon Unavailable [place] Procedure Practitioner Unavailab Hong Adler Unavailable FISHER ., DR LUISANA Herbert Primary Care Unavailable FISHER ., DR LUISANA Herbert Admitting Unavailable FISHER ., DR LUISANA Herbert Attending Unavailable FISHER ., DR LUISANA Herbert Consulting Unavailable FISHER ., DR LUISANA Herbert Primary Care Unavailable CIRA, H Attending Unavailable FAWWAD, SAHU H Admitting Unavailable FAWWAD, SAHU H Admitting Unavailable CIRA, H Attending Unavailable FISHER ., DR LUISANA [...] SAHU H Admitting Unavailable FISHER ., DR ULISANA Herbert Primary Care Unavailable FISHER ., DR LUISANA Herbert Admitting Unavailable FISHER ., DR LUISANA Herbert Attending Unavailable FISHER ., DR LUISANA Herbert Consulting Unavailable FISHER ., DR LUISANA Herbert Primary Care Unavailable ZIDR PAULA LACY Consulting Unavailable SAMSA ., LUIZ Admitting Unavailable [...] LUISANA Herbert Admitting Unavailable FISHER ., DR LUIASNA Herbert Primary Care Unavailable FISHER ., DR LUISANA Herbert Attending Unavailable FISHER ., DR LUISANA Herbert Consulting Unavailable STEPHANIE, DR PAULA Bishop Consulting Unavailable HAY ., DR DE LEON Admitting Unavailable HAY ., DR DE LEON Attending Unavailable FISHER ., DR LUISANA Herbert Primary Care Unavailable NICHOLECHIRENE .DANIELLE Consulting Unavailpriyanka herbert RIVER ., KAYLEY Admitting Unavailable RIVER ., KAYLEY Attending Unavailable LEWIS[place], DR HONG Morgan Consulting Unavailable FISHER ., [...] DR LUISANA Herbert Primary Care Unavailable SHAIKH DENIS Attending [facility]available SAMSA ., LUIZ Admitting Unavailable SAMSA ., LUIZ Attending Unavailable SAMSA ., LUIZ Consulting Unavailable FISHER ., DR LUISANA Herbert Primary Care Unavailable THANG Clement Attending Provider [phone] MD Cira [facility] Primary Care Provider THANG Clement Attending Provider [phone] Cira CUBA [facility] Provider YANCY MAHAN Referring Unavailable YANCY MAHAN Attending Unavailable YANCY MAHAN Referring Unavailable NICANOR CANNON Attending Unavailable Ortega ALEXANDER Attending Unavailable SERGE DENISIKH Referring Unavailable Ortega ALEXANDER Attending Unavailable MD Cira [facility] Provider [phone] DO James Jones Attending Provider Katherine CUBA, Starlarius Sainz Attending Unavailable Giedraitis , Andrius Vrenee Attending Unavailable Giedraitis , Andrius Vrenee Attending Unavailable Giedraitis , Andrius Alistair Attending Unavailable Jaems Jones Attending Unavailable francy [facility] Care Unavailable James Jones Admitting Unavailable [facility] Care Unavailable Kayley Reeder Admitting Unavailable Kayley Reeder Attending Unavailable [facility] Primary Care Unavailable Claire Clement Admitting Unavailable Claire Clement Attending Unavailable [facility]orth [facility] Care Unavailable Claire Clement Admitting Unavailable Claire Clement Attending Unavailable Cira, Primary Care Unavailable James Jones Admitting Unavailable James Jones Attending Unavailable CIRA, Attending Unavailable CIRA, Attending Unavailable CIRA, Attending Unavailable FAFRANCY, Attending Unavailable FAFRANCY, Attending Unavailable FAWMADHURI, Attending Unavailable FAFRANCY, Attending Unavailable Allergies Allergy Classification Reported Allergen(s) Allergy Type Date of Onset Reaction(s) Facility NSAIDs (1 source) meloxicam; Translations: [Mobic] Drug Allergy [facility] Repository Unclassified (1 source) No Known Medication Allergies; Translations: [No Known Medication Allergies] Propensity to adverse reactions (disorder) [facility] Repository (1 source) novacaine; Translations: [novacaine] Propensity to adverse reactions (disorder) 2 [facility] Repository (2 sources) NSAIDs Propensity to adverse reactions HEART ISSUES [facility] Other (3 sources) Adhesive agent; Translations: [adhesive] Allergy to substance 4 Unknown Reaction [facility] (3 sources) NSAIDS (Non-Steroidal Anti-Inflamma; Translations: [NSAIDS (Non-Steroidal Anti-Inflamma] Allergy to substance 4 HEART ISSUES [facility] Medications Current Medications Medication Drug Class(es) Dates Sig (Normalized) Sig (Original) acetaminophen 325 mg / HYDROcodone bitartrate 5 mg oral tablet (1 source) Opioid Agonist Start: 03-01-2024 take 1 tablet by mouth twice daily acetaminophen-hyd rocodone 325 mg-5 mg oral tablet 1 tab(s), Oral, BID, Refill(s) 0 Start Date: 03/01/24 Status: Ordered apixaban 5 mg oral tablet (4 sources) Factor Xa Inhibitor Start: 11-16-2023 take 1 tablet by mouth twice daily Apixaban (Eliquis) 5 mg tablet Active 5 MG PO Twice daily November 16, 2023 1:00am take 1 tablet by mouth in the [...] Centrum Silver (2 sources) Centrum Silver O rally *please review for potential _update for e-prescription and drug interaction check* Active Centrum Women 50 Plus Multigummies oral tablet, chewable (1 source) Start: 2022 Centrum Women 50 Plus Multigummies oral tablet, chewable Refill(s) 0 Start Date: 01/11/23 Status: Ordered cholecalciferol 0.125 mg oral tablet (2 sources) Vitamin D Start: 2023 Cholecalciferol (Vitamin D3) Active 5000 UNIT PO November 16, 2023 1:00am flecainide acetate 100 mg oral tablet (6 sources) Antiarrhythmic Start: 2022 Flecainide Active 100 [...] tablet Orally Once a day Active Lidocaine (4 sources) Antiarrhythmic, Amide Local Anesthetic Start: 11-18-2023 [...] omeprazole 40 mg delayed release oral capsule (6 sources) Proton Pump Inhibitor Start: 023 Omeprazole Active 40 MG PO November 16, 2023 1:00am take 1 capsule by mo [facility] every twenty-four hours Omeprazole 40 MG 1 capsule Orally Once a day Active potassium chloride 10 meq extended release oral capsule (2 sources) take 1 capsule by mouth every twenty-four hours Potassium Chloride 10 MEQ 1 capsule with food Orally Once a day Active spironolactone 25 mg oral tablet (4 sources) Aldosterone Antagonist Start: 024 Spironolactone Active 25 MG PO November 16, 2023 1:00am take 1 tablet by mouth in the mo [facility] spironolactone (Aldactone) 25 MG tablet Take 25 mg by mouth in the morning. 0 Active 24 hr verapamil hydrochloride 180 mg extended release oral capsule (6 sources) Calcium Channel Ozzy Start: 03-01-2024 take [...] 02/14/2023 02/14/2024 Active take 1 capsule by [facility] every twenty-four hours Verapamil HCl ER [...] Daily, # 90 tab(s), Refills(s) 0, Pharmacy: [facility]/pharmacy #[id number], 141, cm, 01/11/23 10:30:00 EDT, [...] [Centrilobular emphysema] Onset: 2 Chronic Conduction disorders (5 sources) Presence of cardiac pacemaker; Translations: [Sinus node dysfunction] Onset: 1 03-01-2024 Chronic Congestive heart failure; nonhypertensive (2 sources) Chronic diastolic (congestive) heart failure; Translations: [Congestive heart failure] Onset: 3 03-01-2024 Chronic Coronary atherosclerosis and other heart disease (3 sources) Atherosclerotic heart disease of [place] coronary artery without angina pectoris; Translations: [Coronary [...] Onset: 3 Episodic Other aftercare (1 source) education adviser (current) use of anticoagulants; Translations: [[facility] CURRNT USE 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] Onset: 3 Episodic Other aftercare (1 source) Other inhalation therapy aides teacher (current) drug therapy; Translations: [OTH BRONZE CHASER CURRENT DRUG THERAPY] Onset: 3 Episodic Other [...] Spondylosis; intervertebral disc disorders; other back problems (14 sources) Cervical spondylosis; Translations: [Spondylosis without myelopathy [...] disorders; other back problems (11 sources) Cervical radiculopathy; Translations: [Radiculopathy, cervical region] [...] Range Facility Lab Reportson 03-07-2024 Lab Reports [id number] #1.00TIFF [facility] 36on 03-06-2024 36 Echo from 03/05/2024 reviewed [...] to her pharmacy. BMP order faxed to [facility]. Breann verbalized understanding. Normal [facility] Consent for Procedure/Surger yon 03-05-2024 Consent for Procedure/Surgery [id number] #1.00TIFF [facility] Ambulatory Visit Summaryon 0 03-02-2024 Ambulatory Visit Summary BREANN STARKS :1945 Visit Date:03/02/2024 Ambulatory Visit Instructions Your Care Team Attending Physician - CATHERINE CUBA, Otrega Bishop Primary Care Physician - Barbara Dai [...] for choosing us for your care. Normal [facility] ED Note-Physicianon 03-02-20 24 ED Note-Physician [id number]# 1.00TIFF [facility] Insurance Correspondenceon 0 03-02-2024 Insurance Correspondence [id number] 7#1.00TIFF [facility] Lab Reportson 03-02-2024 Lab Reports [id number] #1.00TIFF [facility] 36on 01-25-2024 36 Patient called stating ever since her device was adjusted last month she's had this weird feeling in her throat. I called Sony Asif from [employer] and he told me this feeling she's having should not be from her device. Patient informed. I suggested she see PCP for this. She verbalized understanding. Normal [facility] Office Visiton 01-17-2024 Follow-up visit [id number] Breann Starks 1945 F Date Provider Department Center 01/17/2024 NICANOR REGAN CARD [facility] Family History Adopted: Yes Family history unknown: Yes Family Status - Relation Status Age at Mother Father Level of Service:36643 [place] OFFICE/OUTPATIENT ESTABLISHED MOD MDM 30 MIN Reason for Visit and Comments: Atrial Fibrillation [80] Normal [facility] XR lumbar spine 6V w bending on 11-16-2023 XR lumbar spine 6V w bending [facility] [address] [address] XRay Report Signed Patient: Breann Starks MR#: [id number] : 1945 Acct:[id number] Age/Sex: 77 / F ADM Date: 11/16/23 Loc: XD Room: Type: [facility] Attending Dr: Kayley DESIR Copies to: THANG [...] Benton Jr., D.O.11/16/2023 4:37 PM Dictation Location: [place] [address] Transcribed By: [facility] 11/16/23 1637 Dictated By: Francisco J Benton Jr, DO 11/16/23 163 Signed By: 11/16/23 163 Normal [facility] MR lumbar spine wo marii MR lumbar spine wo con [facility] [place] [address] XRay Report Signed Patient: Breann Starks MR#: [id number] : 1945 Acct:[id number] Age/Sex: 77 / F ADM Date: 10/11/23 Loc: MR Room: Type: [facility] Attending Dr: Claire DESIR Copies to: THANG Porter Ordering Provider: THANG Porter Date of Service: 10/11/23 MR/MR lumbar spine wo con: LUMBAR RADICULPATHY ([id number]) XR/XR pre/post mri xray: LUMBAR RADICULPATHY CLINICAL [...] Eleanor Reece M.D.10/11/2023 4:10 PM Dictation Location: [place] [address] Transcribed By: STAR 10/11/23 1610 Dictated By: Eleanor Reece MD 10/11/23 1133 Signed By: 10/11/23 [address] [facility] Office Visiton 07-05-2023 Follow-up visit [id number] Breann Starks 1945 F Date Provider Department Center 07/05/2023 YANCY IVERSON [facility] Family History Adopted: Yes Family history unknown: Yes Family Status - Relation Status Age at Mother Father Level of Service:83047 [place] OFFICE/OUTPATIENT ESTABLISHED LOW MDM 20-29 MIN Normal [facility] XR LSPINE W_OBLS AND FLEX_EX Ton [...] by: PAULA DELGADO Date: 2023-01-31 11:34 Normal [facility] LIPID PROFILEon 12-16-2022 CHOL-HDL RATIO NORM SEE BELOW Normal [facility] Comment on above: Result Comment: 3.3 - 4.4 LOW RISK 4.4 - 7.1 AVERAGE RISK 7.1 - 11.0 MODERATE RISK >11.0 HIGH RISK Performed By: #### L IPID ####[facility] [address] [place] [address]Dr. Erasmo Smith Cholesterol [Mass/Vol] 105 mg/dL Normal <=200 [facility] Comment on above: Performed By: #### L IPID ####[facility] [address] [place] [id number]. Erasmo Smith Cholesterol in HDL [Mass/Vol] 48 mg/dL Normal 40-60 [facility] Comment on above: Performed By: #### L IPID ####[facility] [address]ks[address] [place] [id number]. Erasmo Smith Cholesterol in LDL [Mass/Vol] 48.2 mg/dL Normal [facility] Comment on above: Performed By: #### L IPID ####[facility] [address] [place] [id number]. Erasmo Smith Cholesterol.total/Chol esterol in HDL [Mass ratio] 2.2 {ratio} Normal [facility] Comment on above: Performed By: #### L IPID ####[facility] [address] [place] [id number]. Erasmo Smith HDL NORMAL > or = 60 mg/dl - LOW CARDIOVASCULAR RISK <40 mg/dl - HIGH CARDIOVASCULAR RISK Normal [facility] Comment on above: Performed By: #### L IPID ####[facility] [address] [place] [id number]. Erasmo Smith LDL CALC NORMAL SEE BELOW Normal [facility] Comment on above: Result Comment: <100 mg/dl OPTIMAL 100 - 129 mg/dl NEAR OR ABOVE OPTIMAL 130 - 159 mg/dl BORDERLINE HIGH 160 - 189 mg/dl HIGH >190 mg/dl VERY HIGH Performed By: #### L IPID ####[facility] [address] [place] [id number]. Erasmo Smith Triglyceride [Mass/Vol] 44 mg/dL Normal <=150 [facility] Comment on above: Performed By: #### L IPID ####[facility] [address] [place] [id number]. Erasmo Smith VLDL CALC 8.8 mg/dL Normal [facility] Comment on above: Performed By: #### L IPID ####[facility] [address] [place] [address]Dr. Erasmo Smith CULTURE BLOODon 12-04-2022 Microscopic examination [...] Trimethoprim/Sulfame thoxazole <=20 S F Normal [facility] Comment on above: Performed By: #### B LDCX1 ####[facility] [address] [place], [place] [address]Dr. Erasmo Smith BNPon 12-03-2022 Natriuretic peptide B (Bld) [Mass/Vol] 413.0 pg/mL Normal <=1,800.0 [facility] Comment on above: Performed By: #### B DIRECTOR OF PROMOTIONS #### [facility] [address] [place] [address] Dr. Erasmo Smith CBC AUTO DIFFon 12-03-2022 BASO # 0.0 103/ul Normal 0.0-0.1 [facility] Comment on above: Performed By: #### C BC ####[facility] [address] [place] [address]Dr. Erasmo Smith Basophils/100 WBC (Bld) 0.2 % Normal 0.2-2.0 [facility] Comment on above: Performed By: #### C BC ####[facility] [address] [place], [place] [address]DrMeena Smith EO # 0.4 103/ul Normal 0.0-0.7 [facility] Comment on above: Performed By: #### C BC ####[facility] [address] [place], [place] [address]Dr. Erasmo Smith Eosinophils/100 WBC (Bld) 2.1 % Normal 0.9-7.0 [facility] Comment on above: Performed By: #### C BC ####[facility] [address] [place] [address]Dr. Erasmo Smith Erythrocyte distribution width (RBC) [Ratio] 17.2 % Critically high 11.0-15.0 [facility] Comment on above: Performed By: #### C BC ####[facility] [address] [place] [address]Dr. Erasmo Smith Hematocrit (Bld) [Volume fraction] 29.2 % Critically low 36.0-48.0 [facility] Comment on above: Performed By: #### C BC ####[facility] [address] [place] [address]Dr. Erasmo Smith Hemoglobin (Bld) [Mass/Vol] 9.5 g/dL Critically low 12.0-16.0 [facility] Comment on above: Performed By: #### C BC ####[facility] [address] [place] [address]Dr. Erasmo Smith IG # 0.13 10e3/ul Critically high 0.00-0.03 [facility] Comment on above: Performed By: #### C BC ####[facility] [address] [place] [address]Dr. Erasmo Smith IG % 0.8 % Critically high 0.0-0.5 [facility] Comment on above: Performed By: #### C BC ####[facility] [address] [place] [address]Dr. Erasmo Smith LYMPH # 1.8 103/ul Normal 1.2-3.8 [facility] Comment on above: Performed By: #### C BC ####[facility] [address] [place] [address]Dr. Erasmo Smith Lymphocytes/100 WBC (Bld) 10.3 % Critically low 20.5-60.0 [facility] Comment on above: Performed By: #### C BC ####[facility] [address] [place] [id number]. Erasmo Smith MANUAL DIFF REQ NO Normal [facility] Comment on above: Performed By: #### C BC ####[facility] [address] [place] [phone]. Erasmo Smith MCH (RBC) [Entitic mass] 25.7 pg Critically low 26.7-34.0 [facility] Comment on above: Performed By: #### C BC ####[facility] [address] [place] [address]Dr. Erasmo Smith MCHC (RBC) [Mass/Vol] 32.5 g/dL Normal 29.9-35.2 [facility] Comment on above: Performed By: #### C BC ####[facility] [address] [place] [address]Dr. Erasmo Luis MCV (RBC) [Entitic vol] 79.1 fL Critically low 81.0-99.0 [facility] Comment on above: Performed By: #### C BC ####[facility] [address] [place] [id number]. Erasmo Luis MONO # 1.5 103/ul Critically high 0.3-0.8 [facility] Comment on above: Performed By: #### C BC ####[facility] [address] [place] [address]Dr. Erasmo Smith Monocytes/100 WBC (Bld) 8.7 % Normal 1.7-12.0 [facility] Comment on above: Performed By: #### C BC ####[facility] [address] [place] [id number]. Heavenean Luis NEUT # 13.4 103/ul Critically high 1.4-6.5 [facility] Comment on above: Performed By: #### C BC ####[facility] [address] [place] [address]Dr. Erasmo Smith Neutrophils/100 WBC (Bld) 77.9 % Critically high 43.0-75.0 [facility] Comment on above: Performed By: #### C BC ####[facility] [address] [place], [place] [address]Me. Erasmo Smith Platelet mean volume (Bld) [Entitic vol] 9.3 fL Critically low 9.5-13.5 [facility] Comment on above: Performed By: #### C BC ####[facility] [address] [place], [place] [address]Ba. Erasmo Smith PLT 205 103/ul Normal 150-450 [facility] Comment on above: Performed By: #### C BC ####[facility] [address] [place], [place] [address]Qh. Erasmo Smith RBC 3.69 106/ul Critically low 4.20-5.40 [facility] Comment on above: Performed By: #### C BC ####[facility] [address] [place] [id number] Smith WBC 17.2 103/ul Critically high 4.0-11.0 [facility] Comment on above: Performed By: #### C BC ####[facility] [address] [place] [id number]. Erasmo Smith MAGNESIUMon 12-03-2022 Magnesium [Mass/Vol] 1.9 mg/dL Normal 1.8-2.4 [facility] Comment on above: Performed By: #### B DIRECTOR OF PROMOTIONS #### [facility] [address] [place] [address] [address] Erasmo Smith PROF 14(COMP METB)on 023 Albumin [Mass/Vol] 2.6 g/dL Critically low 3.4-5.0 [facility] Comment on above: Performed By: #### B DIRECTOR OF PROMOTIONS #### [facility] [address] [place] [address] [address] Erasmo Smith Albumin/Globulin [Mass ratio] 0.6 {ratio} Normal [facility] Comment on above: Performed By: #### B DIRECTOR OF PROMOTIONS #### [facility] [address] [place] [address] [address] Erasmo Smith ALP [Catalytic activity/Vol] 123 U/L Critically high 46-116 [facility] Comment on above: Performed By: #### B DIRECTOR OF PROMOTIONS #### [facility] [address] [place] [address] [address] Erasmo Smith ALT [Catalytic activity/Vol] 28 U/L Normal 14-59 [facility] Comment on above: Performed By: #### B DIRECTOR OF PROMOTIONS #### [facility] [address] [place] [address] [address] Erasmo Smith Anion gap [Moles/Vol] 9.4 mmol/L Normal [facility] Comment on above: Performed By: #### B DIRECTOR OF PROMOTIONS #### [facility] [address] [place] [address] [address] Erasmo Smith AST [Catalytic activity/Vol] 21 U/L Normal 15-37 [facility] Comment on above: Performed By: #### B DIRECTOR OF PROMOTIONS #### [facility] [address] [place] [address] Dr. Erasmo Smith Bilirubin [Mass/Vol] 0.3 mg/dL Normal 0.2-1.0 [facility] Comment on above: Performed By: #### B DIRECTOR OF PROMOTIONS #### [facility] [address] [place] [address] Dr. Erasmo Smith Calcium [Mass/Vol] 8.3 mg/dL Critically low 8.5-10.1 [facility] Comment on above: Performed By: #### B DIRECTOR OF PROMOTIONS #### [facility] [address] [place] [address] Dr. Erasmo Smith Chloride [Moles/Vol] 105 mmol/L Normal 98-107 [facility] Comment on above: Performed By: #### B DIRECTOR OF PROMOTIONS #### [facility] [address] [place] [address] Dr. Erasmo Smith CO2 [Moles/Vol] 27.1 mmol/L Normal 21.0-32.0 [facility] Comment on above: Performed By: #### B DIRECTOR OF PROMOTIONS #### [facility] [address] [place] [address] Dr. Erasmo Smith Creatinine [Mass/Vol] 0.55 mg/dL Normal 0.55-1.02 [facility] Comment on above: Performed By: #### B DIRECTOR OF PROMOTIONS #### [facility] [address] [place] [address] [address] Erasmo Smith EGFR-AF ENGLISH >60 Normal >=60 [facility] Comment on above: Performed By: #### B DIRECTOR OF PROMOTIONS #### [facility] [address] [place] [address] Dr. Erasmo Smith EGFR-NON AF ENGLISH >60 Normal >=60 [facility] Comment on above: Performed By: #### B DIRECTOR OF PROMOTIONS #### [facility] [address] [place] [address] [address] Erasmo Smith Globulin (S) [Mass/Vol] 4.0 g/dL Normal [facility] Comment on above: Performed By: #### B DIRECTOR OF PROMOTIONS #### [facility] [address] [place] [address] Dr. Erasmo Smith Glucose [Mass/Vol] 132 mg/dL Critically high 74-106 [facility] Comment on above: Performed By: #### B DIRECTOR OF PROMOTIONS #### [facility] [address] [place] [address] Dr. Erasmo Smith Potassium [Moles/Vol] 3.5 mmol/L Normal 3.5-5.1 [facility] Comment on above: Performed By: #### B DIRECTOR OF PROMOTIONS #### [facility] [address] [place] [address] Dr. Erasmo Smith Protein [Mass/Vol] 6.6 g/dL Normal 6.4-8.2 [facility] Comment on above: Performed By: #### B DIRECTOR OF PROMOTIONS #### [facility] [address] [place] [address] Dr. Erasmo Smith Sodium [Moles/Vol] 138 mmol/L Normal 136-145 [facility] Comment on above: Performed By: #### B DIRECTOR OF PROMOTIONS #### [facility] [address] [place] [address] Dr. Erasmo Smith Urea nitrogen [Mass/Vol] 24.0 mg/dL Critically high 7.0-18.0 [facility] Comment on above: Performed By: #### B DIRECTOR OF PROMOTIONS #### [facility] [address] [place] [address] Dr. Erasmo Smith Urea nitrogen/Creatinine [Mass ratio] 43.6 mg/mg Normal [facility] Comment on above: Performed By: #### B DIRECTOR OF PROMOTIONS #### [facility] [address] [address] [address] Erasmo Smith PROTIMEon 12-03-2022 INR Coag (PPP) [Relative time] 4.41 {INR} Critically high [facility] Comment on above: Performed By: #### C MREP #### [facility] [address] [address] [address] Erasmo Smith INR GUIDELINES SEE BELOW Normal [facility] Comment on above: Result Comment: ABNER RED INR: 2.0 - 3.0 CONDITIONS NOT LISTED BELOW 2.5 - 3.5 FOR PROSTHETIC HEART VALVE REPLACEMENT 2.5 - 3.5 RECURRENT THROMBOSIS Performed By: #### C MREP #### [facility] [address] [place] [address] Dr. Erasmo Smith PT Coag (PPP) [Time] 43.0 s Critically high 9.0-11.6 [facility] Comment on above: Performed By: #### C MREP #### [facility] [address] [address] [address] Erasmo Smith BLOOD CULTURE ID PANELon A. baumannii Not detected Normal NOT DETECTED [facility] Comment on above: Performed By: #### B CID2 ####[facility] [address] [address]DrMeena Smith Bacteriodes fragilis Not detected Normal NOT DETECTED [facility] Comment on above: Performed By: #### B CID2 ####[facility] [address] [address]Dr. Erasmo Smith BCID CONTROLS PASSED Normal [facility] Comment on above: Performed By: #### B CID2 ####[facility] [address] [address]DrMeena Smith BCIDBTHD BLOOD CULTURE BOTTLE INFORMATION Normal [facility] Comment on above: Performed By: #### B CID2 ####[facility] [address] [address]Dr. Erasmo Smith BCIDHD1 ANTIMICROBIAL RESISTANCE GENES Normal [facility] Comment on above: Performed By: #### B CID2 ####[facility] [address] [address]Dr. Yiean Smith BCIDHD2 SEE BELOW Normal [facility] Comment on above: Result Comment: Note : Antimicrobial resitance can occur via multiple mechanisms. A Not Detected result for the [employer] antomicrobial resistance gene assays does not indicate antimicrobial susceptibility. Subculturing is required for species identification and susceptibility testing of isolates. Performed By: #### B CID2 ####[facility] [address] [place], [place] [address]Dr. Erasmo Smith BCIDHD3 Positive Normal [facility] Comment on above: Performed By: #### B CID2 ####[facility] Heq[address]ec[address] [place], [place] [address]Dr. Erasmo Smith BCIDHD4 Negative Normal [facility] Comment on above: Performed By: #### B CID2 ####[facility] Xgtionowje[address] [place], [place] [address]Dr. Erasmo Smith BCIDHD5 YEAST Normal [facility] Comment on above: Performed By: #### B CID2 ####[facility] [address]pyft[address] [place], [place] [address]Dr. Erasmo Smith Bottle Set: Set 1 Normal [facility] Comment on above: Performed By: #### B CID2 ####[facility] Y[address] [place], [place] [address]Dr. Erasmo Smith Bottle: Anaerobic Normal [facility] Comment on above: Performed By: #### B CID2 ####[facility] [address] [address]Dr. Yiean Smith C. neoformans/gattii Not detected Normal NOT DETECTED [facility] Comment on above: Performed By: #### B CID2 ####[facility] Pd[address]wgqgkt[address] [place], [place] [address]Dr. Erasmo Smith Naye albicans Not detected Normal NOT DETECTED [facility] Comment on above: Performed By: #### B CID2 ####[facility] [address] [id number]. Erasmo Smith Naye auris Not detected Normal NOT DETECTED [facility] Comment on above: Performed By: #### B CID2 ####[facility] [address] [address]Dr. Yiean Smith Naye glabrata Not detected Normal NOT DETECTED [facility] Comment on above: Performed By: #### B CID2 ####[facility] [address] [id number]. Yiean Smith Naye Krusei Not detected Normal NOT DETECTED [facility] Comment on above: Performed By: #### B CID2 ####[facility] Bd[address]whpzqc[address] [place], [place] [address]Dr. Yiean Smith Naye Parapsilosis Not detected Normal NOT DETECTED [facility] Comment on above: Performed By: #### B CID2 ####[facility] R[address]ie[address] [place], [place] [address]Dr. Erasmo Smith Naye Tropicalis Not detected Normal NOT DETECTED [facility] Comment on above: Performed By: #### B CID2 ####[facility] Mfoakvniqu[address] [place], [place] [address]Dr. Erasmo Smith CTX-M Resistant Gene Not Applicable Normal NOT DETECTE D [facility] Comment on above: Performed By: #### B CID2 ####[facility] Tbqrw[address] [place], [place] [address]Dr. Yiean Smith E. Cloacae complex Not detected Normal NOT DETECTED [facility] Comment on above: Performed By: #### B CID2 ####[facility] Tctcdguqsy[address] [place], [place] [address]Dr. Yiean Smith E. faecalis Not detected Normal NOT DETECTED [facility] Comment on above: Performed By: #### B CID2 ####[facility] Khfuwstkev[address] [place], [place] [address]Dr. Yiean Smith E. faecium Not detected Normal NOT DETECTED [facility] Comment on above: Performed By: #### B CID2 ####[facility] Vfdzwhqpmd[address] [place], [place] [address]Dr. Erasmo Smith Enterobacteriaceae Detected Critically abnormal NOT DETECTED [facility] Comment on above: Performed By: #### B CID2 ####[facility] [address] [address]Dr. Erasmo Smith Escherichia coli Detected Critically abnormal NOT DETECTED [facility] Comment on above: Performed By: #### B CID2 ####[facility] [address] [address]Dr. Erasmo Smith H. influenzae Not detected Normal NOT DETECTED [facility] Comment on above: Performed By: #### B CID2 ####[facility] Jcvutnryrh[address] [place], [place] [address]Dr. Erasmo Smith IMP Resistant Gene Not Applicable Normal NOT DETECTED [facility] Comment on above: Performed By: #### B CID2 ####[facility] Niffzcfhrw[address] [place], [place] [address]Dr. Erasmo Smith K. oxytoca Not detected Normal NOT DETECTED [facility] Comment on above: Performed By: #### B CID2 ####[facility] D[address]vmubvrl[address] [place], [place] [address]Dr. Erasmo Smith K. pneumoniae Not detected Normal NOT DETECTED [facility] Comment on above: Performed By: #### B CID2 ####[facility] Tcfkhmpozp[address] [place], [place] [address]Dr. Erasmo Smith Klebsiella aerogenes Not detected Normal NOT DETECTED [facility] Comment on above: Performed By: #### B CID2 ####[facility] W[address]muktskbp[address] [place], [place] [address]Dr. Erasmo Smith KPC Resistant Gene Not detected Normal NOT DETECTED [facility] Comment on above: Performed By: #### B CID2 ####[facility] [address] [address]Dr. Erasmo Smith List. monocytogenes Not detected Normal NOT DETECTED [facility] Comment on above: Performed By: #### B CID2 ####[facility] Lzdlywyypb[address] [place], [place] [address]Dr. Erasmo Smith Mcr-1 Resistant Gene Not Applicable Normal NOT DETECTE D [facility] Comment on above: Performed By: #### B CID2 ####[facility] Dpczunplps[address] [place], [place] [address]Dr. Heavenean Luis mecA/C Not Applicable Normal NOT DETECTED [facility] Comment on above: Performed By: #### B CID2 ####[facility] Jmsgdjiydy[address] [place], [place] [address]Dr. Erasmo Smith mecA/C MREJ Not Applicable Normal NOT DETECTED [facility] Comment on above: Performed By: #### B CID2 ####[facility] Bziysfwvav[address] [place], [place] [address]Dr. Erasmo Smith N. meningitidis Not detected Normal NOT DETECTED [facility] Comment on above: Performed By: #### B CID2 ####[facility] Ivhecamwrm[address] [place], [place] [address]Dr. Erasmo Smith NDM Resistant Gene Not Applicable Normal NOT DETECTED [facility] Comment on above: Performed By: #### B CID2 ####[facility] Lsvtrdaudi[address] [place], [place] [address]Dr. Erasmo Luis Oxa-48-like Not Applicable Normal NOT DETECTED [facility] Comment on above: Performed By: #### B CID2 ####[facility] Pjfuztmsaa[address] [place], [place] [address]Dr. Erasmo Smith Proteus Not detected Normal NOT DETECTED [facility] Comment on above: Performed By: #### B CID2 ####[facility] Ljklldmleu7[address] [place], [place] [address]Dr. Erasmo Smith Pseud. aeruginosa Not detected Normal NOT DETECTED [facility] Comment on above: Performed By: #### B CID2 ####[facility] Wuugmyudkj206[address] [place], [place] [address]Dr. Erasmo Smith S. maltophilia Not detected Normal NOT DETECTED [facility] Comment on above: Performed By: #### B CID2 ####[facility] Emnxaxpksu6[address] [place], [place] [address]Dr. Erasmo Smith Salmonella Not detected Normal NOT DETECTED [facility] Comment on above: Performed By: #### B CID2 ####[facility] [address] [address]Dr. Erasmo Smith Seratia marcescens Not detected Normal NOT DETECTED [facility] Comment on above: Performed By: #### B CID2 ####[facility] [address] [address]Dr. Erasmo Smith Site: l ac Normal [facility] Comment on above: Performed By: #### B CID2 ####[facility] Mdtahxblle[address] [place], [place] [address]Dr. Erasmo Smith Staph. aureus Not detected Normal NOT DETECTED [facility] Comment on above: Performed By: #### B CID2 ####[facility] [address]fjxstsj[address] [place], [place] [address]Dr. Erasmo Smith Staph. epidermidis Not detected Normal NOT DETECTED [facility] Comment on above: Performed By: #### B CID2 ####[facility] Ucfkihoqoe[address] [place], [place] [address]Dr. Erasmo Smith Staph. lugdunensis Not detected Normal NOT DETECTED [facility] Comment on above: Performed By: #### B CID2 ####[facility] Csbyzrmhqh[address] [place], [place] [address]Dr. Erasmo Smith Staphylococcus Not detected Normal NOT DETECTED [facility] Comment on above: Performed By: #### B CID2 ####[facility] Gxkmx[address]lgt[address] [place], [place] [address]Dr. Erasmo Smith Strep. agalactiae Not detected Normal NOT DETECTED [facility] Comment on above: Performed By: #### B CID2 ####[facility] S[address]kght[address] [place], [place] [address]Dr. Erasmo Smith Strep. pneumoniae Not detected Normal NOT DETECTED [facility] Comment on above: Performed By: #### B CID2 ####[facility] Zmkmbzeqgx6[address] [place], [place] [address]Dr. Erasmo Smith Strep. pyogenes Not detected Normal NOT DETECTED [facility] Comment on above: Performed By: #### B CID2 ####[facility] [address] [address]Dr. Erasmo Smith Streptococcus Not detected Normal NOT DETECTED [facility] Comment on above: Performed By: #### B CID2 ####[facility] [address]ws[address] [address]Dr. Erasmo Smith Fran/B Resist. Gene Not detected Normal NOT DETECTED [facility] Comment on above: Performed By: #### B CID2 ####[facility] [address] [address]Dr. Erasmo Smith VIM Resistant Gene Not Applicable Normal NOT DETECTED [facility] Comment on above: Performed By: #### B CID2 ####[facility] [address] [address]DrMeena Smith BNPon 12-02-2022 Natriuretic peptide B (Bld) [Mass/Vol] 1059.0 pg/mL Normal <=1,800.0 [facility] Comment on above: Performed By: #### B DIRECTOR OF PROMOTIONS #### [facility] [address] [address] [address] Erasmo Smith CBC AUTO DIFFon 12-02-2022 BASO # 0.0 103/ul Normal 0.0-0.1 [facility] Comment on above: Performed By: #### C BC ####[facility] [address] [address]Dr. Erasmo Smith Basophils/100 WBC (Bld) 0.2 % Normal 0.2-2.0 [facility] Comment on above: Performed By: #### C BC ####[facility] V[address]odmbmpt[address] [place], [place] [address]DrMeena Smith EO # 0.0 103/ul Normal 0.0-0.7 [facility] Comment on above: Performed By: #### C BC ####[facility] [address] [address]DrMeena Smith Eosinophils/100 WBC (Bld) 0.0 % Critically low 0.9-7.0 [facility] Comment on above: Performed By: #### C BC ####[facility] [address]iz[address] [address]Dr. Erasmo Smith Erythrocyte distribution width (RBC) [Ratio] 17.3 % Critically high 11.0-15.0 [facility] Comment on above: Performed By: #### C BC ####[facility] [address] [address]Dr. Erasmo Smith Hematocrit (Bld) [Volume fraction] 31.4 % Critically low 36.0-48.0 [facility] Comment on above: Performed By: #### C BC ####[facility] T[address]pf[address]ple[address] [place], [place] [address]Dr. Erasmo Smith Hemoglobin (Bld) [Mass/Vol] 10.0 g/dL Critically low 12.0-16.0 [facility] Comment on above: Performed By: #### C BC ####[facility] Qznxrerkpu[address] [place], [place] [address]Dr. Erasmo Smith IG # 0.06 10e3/ul Critically high 0.00-0.03 [facility] Comment on above: Performed By: #### C BC ####[facility] [address]eeodzinnq[address] [place], [place] [address]Dr. Erasmo Smith IG % 0.4 % Normal 0.0-0.5 [facility] Comment on above: Performed By: #### C BC ####[facility] [address]qqhxm[address] [place], [place] [address]Dr. Heavenean Smith LYMPH # 1.3 103/ul Normal 1.2-3.8 [facility] Comment on above: Performed By: #### C BC ####[facility] Mycprdqhow4712[address] [place], [place] [address]Dr. Heavenean Smith Lymphocytes/100 WBC (Bld) 8.1 % Critically low 20.5-60.0 [facility] Comment on above: Performed By: #### C BC ####[facility] Pdrrmjorwl[address] [place], [place] [address]Dr. Erasmo Luis MANUAL DIFF REQ NO Normal [facility] Comment on above: Performed By: #### C BC ####[facility] [address] [id number]. Erasmo Smith MCH (RBC) [Entitic mass] 25.6 pg Critically low 26.7-34.0 [facility] Comment on above: Performed By: #### C BC ####[facility] [address] [address]Dr. Erasmo Smith MCHC (RBC) [Mass/Vol] 31.8 g/dL Normal 29.9-35.2 [facility] Comment on above: Performed By: #### C BC ####[facility] [address] [place], [place] [address]Dr. Erasmo Luis MCV (RBC) [Entitic vol] 80.3 fL Critically low 81.0-99.0 [facility] Comment on above: Performed By: #### C BC ####[facility] [address]vvzjroum[address] [place], [place] [address]Dr. Erasmo Luis MONO # 0.6 103/ul Normal 0.3-0.8 [facility] Comment on above: Performed By: #### C BC ####[facility] Ymjkertgcc[address] [place], [place] [address]Dr. Heavenean Smith Monocytes/100 WBC (Bld) 3.7 % Normal 1.7-12.0 [facility] Comment on above: Performed By: #### C BC ####[facility] E[address]mcfdccn[address] [place], [place] [address]Dr. Erasmo Smith NEUT # 14.5 103/ul Critically high 1.4-6.5 [facility] Comment on above: Performed By: #### C BC ####[facility] [address]uv[address] [place], [place] [address]Dr. Heavenean Smith Neutrophils/100 WBC (Bld) 87.6 % Critically high 43.0-75.0 [facility] Comment on above: Performed By: #### C BC ####[facility] Mypwaydavu[address] [place], [place] [address]Dr. Heavenean Smith Platelet mean volume (Bld) [Entitic vol] 10.0 fL Normal 9.5-13.5 [facility] Comment on above: Performed By: #### C BC ####[facility] [address] [place], [place] [address]Sx. Erasmo Smith PLT 206 103/ul Normal 150-450 [facility] Comment on above: Performed By: #### C BC ####[facility] [address] [place], [place] [address]Tw. Erasmo Smith RBC 3.91 106/ul Critically low 4.20-5.40 [facility] Comment on above: Performed By: #### C BC ####[facility] [address]tz[address]it[address] [place], [place] [address]Cb. Erasmo Smith WBC 16.5 103/ul Critically high 4.0-11.0 [facility] Comment on above: Performed By: #### C BC ####[facility] [address] [place], [place] [address]Vj. Erasmo Smith ECHOCARDIO M/2D COMPLETEon 0 12-02-2022 ECHOCARDIO M/2D COMPLETE Patient: BREANN STARKS Exam Date: 12/02/2022 : 1945 Gender:F Ordering : KAYLEY HOLMAN . Admission #: [id number] Family : DR LUISANA FISHER . Order #: [id number] CLICK HERE TO VIEW EXAM ECHOCARDIOGRAM REPORT [...] M.D. on 12/02/2022 at 21:58 Normal [facility] MAGNESIUMon 12-02-2022 Magnesium [Mass/Vol] 2.0 mg/dL Normal 1.8-2.4 [facility] Comment on above: Performed By: #### B DIRECTOR OF PROMOTIONS #### [facility] [address] [place] [address] Dr. Erasmo Smith PROF 14(COMP METB)on 023 Albumin [Mass/Vol] 2.7 g/dL Critically low 3.4-5.0 [facility] Comment on above: Performed By: #### B DIRECTOR OF PROMOTIONS #### [facility] [address] [place] [address] Dr. Erasmo Smith Albumin/Globulin [Mass ratio] 0.6 {ratio} Normal [facility] Comment on above: Performed By: #### B DIRECTOR OF PROMOTIONS #### [facility] [address] [place] [address] Dr. Erasmo Smith ALP [Catalytic activity/Vol] 128 U/L Critically high 46-116 [facility] Comment on above: Performed By: #### B DIRECTOR OF PROMOTIONS #### [facility] [address] [place] [address] Dr. Erasmo Smith ALT [Catalytic activity/Vol] 34 U/L Normal 14-59 [facility] Comment on above: Performed By: #### B DIRECTOR OF PROMOTIONS #### [facility] [address] [place] [address] Dr. Erasmo Smith Anion gap [Moles/Vol] 10.6 mmol/L Normal [facility] Comment on above: Performed By: #### B DIRECTOR OF PROMOTIONS #### [facility] [address] [place] [address] Dr. Erasmo Smith AST [Catalytic activity/Vol] 27 U/L Normal 15-37 [facility] Comment on above: Performed By: #### B DIRECTOR OF PROMOTIONS #### [facility] [address] [place] [address] Dr. Erasmo Smith Bilirubin [Mass/Vol] 0.5 mg/dL Normal 0.2-1.0 [facility] Comment on above: Performed By: #### B DIRECTOR OF PROMOTIONS #### [facility] [address] [place] [address] Dr. Erasmo Smith Calcium [Mass/Vol] 8.4 mg/dL Critically low 8.5-10.1 [facility] Comment on above: Performed By: #### B DIRECTOR OF PROMOTIONS #### [facility] [address] [address] [address] Erasmo Smith Chloride [Moles/Vol] 104 mmol/L Normal 98-107 [facility] Comment on above: Performed By: #### B DIRECTOR OF PROMOTIONS #### [facility] [address] [place] [address] Dr. Erasmo Smith CO2 [Moles/Vol] 26.2 mmol/L Normal 21.0-32.0 [facility] Comment on above: Performed By: #### B DIRECTOR OF PROMOTIONS #### [facility] [address] [place] [address] Dr. Erasmo Smith Creatinine [Mass/Vol] 0.52 mg/dL Critically low 0.55-1.02 [facility] Comment on above: Performed By: #### B DIRECTOR OF PROMOTIONS #### [facility] [address] [place] [address] Dr. Erasmo Smith EGFR-AF ENGLISH >60 Normal >=60 [facility] Comment on above: Performed By: #### B DIRECTOR OF PROMOTIONS #### [facility] [address] [place] [address] Dr. Erasmo Smith EGFR-NON AF ENGLISH >60 Normal >=60 [facility] Comment on above: Performed By: #### B DIRECTOR OF PROMOTIONS #### [facility] [address] [place] [address] Dr. Erasmo Smith Globulin (S) [Mass/Vol] 4.3 g/dL Normal [facility] Comment on above: Performed By: #### B DIRECTOR OF PROMOTIONS #### [facility] [address] [place] [address] Dr. Erasmo Smith Glucose [Mass/Vol] 135 mg/dL Critically high 74-106 [facility] Comment on above: Performed By: #### B DIRECTOR OF PROMOTIONS #### [facility] [address] [place] [address] Dr. Erasmo Smith Potassium [Moles/Vol] 3.8 mmol/L Normal 3.5-5.1 [facility] Comment on above: Performed By: #### B DIRECTOR OF PROMOTIONS #### [facility] [address] [place] [address] Dr. Erasmo Smith Protein [Mass/Vol] 7.0 g/dL Normal 6.4-8.2 [facility] Comment on above: Performed By: #### B DIRECTOR OF PROMOTIONS #### [facility] [address] [place] [address] Dr. Erasmo Smith Sodium [Moles/Vol] 137 mmol/L Normal 136-145 [facility] Comment on above: Performed By: #### B DIRECTOR OF PROMOTIONS #### [facility] [address] [place] [address] Dr. Erasmo Smith Urea nitrogen [Mass/Vol] 16.0 mg/dL Normal 7.0-18.0 [facility] Comment on above: Performed By: #### B DIRECTOR OF PROMOTIONS #### [facility] [address] [place] [address] Dr. Erasmo Smith Urea nitrogen/Creatinine [Mass ratio] 30.8 mg/mg Normal [facility] Comment on above: Performed By: #### B DIRECTOR OF PROMOTIONS #### [facility] [address] [place] [address] Dr. Erasmo Smith PROTIMEon 12-02-2022 INR Coag (PPP) [Relative time] 4.39 {INR} Critically high [facility] Comment on above: Performed By: #### P T #### [facility] [address] [place] [address] Dr. Erasmo Smith INR GUIDELINES SEE BELOW Normal [facility] Comment on above: Result Comment: ABNER RED INR: 2.0 - 3.0 CONDITIONS NOT LISTED BELOW 2.5 - 3.5 FOR PROSTHETIC HEART VALVE REPLACEMENT 2.5 - 3.5 RECURRENT THROMBOSIS Performed By: #### P T #### [facility] [address] [place] [address] Dr. Erasmo Smith PT Coag (PPP) [Time] 42.8 s Critically high 9.0-11.6 [facility] Comment on above: Performed By: #### P T #### [facility] [address] [address] [address] Erasmo Smith UA RANDOM W/MICROSCOPICon BACTERIA NONE SEEN Normal NONE SEEN [facility] Comment on above: Performed By: #### U AMIC ####[facility] [address] [address]Dr. Erasmo Smith Bilirubin Ql (U) Negative Normal NEGATIVE [facility] Comment on above: Performed By: #### U AMIC ####[facility] [address] [address]Dr. Erasmo Smith CAST NONE SEEN Normal NONE SEEN [facility] Comment on above: Performed By: #### U AMIC ####[facility] [address] [address]Dr. Erasmo Smith Clarity (U) CLEAR Normal CLEAR [facility] Comment on above: Performed By: #### U AMIC ####[facility] [address] [address]Dr. Erasmo Smith Color (U) YELLOW Normal YELLOW [facility] Comment on above: Performed By: #### U AMIC ####[facility] [address] [address]Dr. Erasmo Smith Crystals LM Nom (Urine sed) NONE SEEN Normal NONE SEEN [facility] Comment on above: Performed By: #### U AMIC ####[facility] [address] [address]Dr. Erasmo Smith Epithelial cells LM Ql (Urine sed) RARE Normal NONE SEEN /RARE [facility] Comment on above: Performed By: #### U AMIC ####[facility] [address] [address]Dr. Erasmo Smith Glucose Ql (U) Negative Normal NEGATIVE [facility] Comment on above: Performed By: #### U AMIC ####[facility] [address] [address]Dr. Erasmo Smith Hemoglobin Ql (U) SMALL Abnormal NEGATIVE [facility] Comment on above: Performed By: #### U AMIC ####[facility] [address] [address]Dr. Erasmo Smith Ketones Ql (U) 15 mg/dl Abnormal NEGATIVE [facility] Comment on above: Performed By: #### U AMIC ####[facility] [address] [place], [place] [address]Dr. Erasmo Smith LEUKOCYTES Negative Normal NEGATIVE [facility] Comment on above: Performed By: #### U AMIC ####[facility] [address] [place], [place] [address]Dr. Erasmo Smith MUCOUS NONE SEEN Normal NONE SEEN [facility] Comment on above: Performed By: #### U AMIC ####[facility] [address] [place], [place] [address]Dr. Erasmo Smith Nitrite Ql (U) Negative Normal NEGATIVE [facility] Comment on above: Performed By: #### U AMIC ####[facility] [address] [place], [place] [address]Dr. Erasmo Smith pH (U) 6.0 [pH] Normal 5-9 [facility] Comment on above: Performed By: #### U AMIC ####[facility] [address] [place], [place] [address]Dr. Erasmo Smith RBC 0-2 Normal 0-2 [facility] Comment on above: Performed By: #### U AMIC ####[facility] [address] [place], [place] [address]Dr. Erasmo Smith SPEC GRAVITY 1.025 Normal 1.005-<=1.02 5 [facility] Comment on above: Performed By: #### U AMIC ####[facility] [address] [place], [place] [address]Dr. Erasmo Smith UA PROTEIN TRACE Normal NEGATIVE/ TRACE [facility] Comment on above: Performed By: #### U AMIC ####[facility] [address] [place], [place] [address]Dr. Erasmo Smith Urobilinogen Qn (U) 4 {Shraddha'U}/dL Abnormal 0.2 - 1.0 [facility] Comment on above: Performed By: #### U AMIC ####[facility] [address] [place], [place] [address]MpDr. Erasmo Smith WBC 0-2 Abnormal NONE SEEN [facility] Comment on above: Performed By: #### U AMIC ####[facility] [address] [id number]. Erasmo Smith CARDIAC ROSA ELENA 3-6on 3 CK [Catalytic activity/Vol] 53 U/L Normal 26-192 [facility] Comment on above: Performed By: #### C MREP #### [facility] [address] [address] [address] Erasmo Smith CK.MB [Mass/Vol] 0.90 ng/mL Normal <=3.60 [facility] Comment on above: Performed By: #### C MREP #### [facility] [address] [place] [address] Dr. Erasmo Smith HSTROP 116.7 pg/mL Critically high 4.0-51.3 [facility] Comment on above: Result Comment: CUT- OFF POINTS HAVE BEEN ESTABLISHED BASED ON THE FOURTH UNIVERSAL DEFINITIONS OF MYOCARDIAL INFARCTION. THE UPPER REFERENCE LIMIT (URL) OF TROPONIN, DEFINED THE 99TH PERCENTILE OF cTnI DISTRIBUTION IN A REFERENCE POPULATION, HAS BEEN CONFIRMED THE DECISION THRESHOLD FOR MD DIAGNOSIS. Performed By: #### C MREP #### [facility] [address] [place] [address] Dr. Erasmo Smith CK [Catalytic activity/Vol] 47 U/L Normal 26-192 [facility] Comment on above: Performed By: #### B DIRECTOR OF PROMOTIONS #### [facility] [address] [place] [address] Dr. Erasmo BAE.MB [Mass/Vol] 1.00 ng/mL Normal <=3.60 [facility] Comment on above: Performed By: #### B DIRECTOR OF PROMOTIONS #### [facility] [address] [place] [address] Dr. Erasmo Smith HSTROP 154.3 pg/mL Critically high 4.0-51.3 [facility] Comment on above: Result Comment: CUT- OFF POINTS HAVE BEEN ESTABLISHED BASED ON THE FOURTH UNIVERSAL DEFINITIONS OF MYOCARDIAL INFARCTION. THE UPPER REFERENCE LIMIT (URL) OF TROPONIN, DEFINED THE 99TH PERCENTILE OF cTnI DISTRIBUTION IN A REFERENCE POPULATION, HAS BEEN CONFIRMED THE DECISION THRESHOLD FOR MD DIAGNOSIS. Performed By: #### B DIRECTOR OF PROMOTIONS #### [facility] [address] [place] [address] Dr. Erasmo Smith CBC W MANUAL DIFFon 12-02-19 23 ATYPICAL LYMPH # Normal [facility] Comment on above: Performed By: #### C BCMAN #### [facility] [address] [place] [address] Dr. Erasmo Smith ATYPICAL LYMPH % Normal [facility] Comment on above: Performed By: #### C BCMAN #### [facility] [address] [place] [address] Dr. Erasmo Smith BAND # 0.6 103/ul Critically high 0.0-0.3 [facility] Comment on above: Performed By: #### C ALHAJIMAN #### [facility] [address] [place] [address] Dr. Erasmo Smith BAND % 3 % Normal 0-5 [facility] Comment on above: Performed By: #### C BCMAN #### [facility] [address] [place] [address] Dr. Erasmo Smith BASOM # 0.00 103/ul Normal 0.00-0.10 [facility] Comment on above: Performed By: #### C ALHAJIMAN #### [facility] [address] [place] [address] Dr. Erasmo Smith BASOM % 0.0 % Critically low 0.2-2.0 [facility] Comment on above: Performed By: #### C BCBLAISE #### [facility] [address] [place] [address] Dr. Erasmo Smith BLAST # Normal [facility] Comment on above: Performed By: #### C BCMAN #### [facility] [address] [place] [address] Dr. Erasmo Smith BLAST % Normal [facility] Comment on above: Performed By: #### C BCMAN #### [facility] [address] [place] [address] Dr. Erasmo Smith CORRECTED WBC Normal 4.0-11.0 [facility] Comment on above: Performed By: #### C BCBLAISE #### [facility] [address] [address] [address] Erasmo Smith EOS # 0.19 103/ul Normal 0.00-0.70 [facility] Comment on above: Performed By: #### C ANGELA #### [facility] [address] [address] [address] Erasmo Smith EOS% 1.0 % Normal 0.9-7.0 [facility] Comment on above: Performed By: #### C BCBLAISE #### [facility] [address] [place] [address] Dr. Erasmo Smith HCT 32.7 % Critically low 36.0-48.0 [facility] Comment on above: Performed By: #### C ANGELA #### [facility] [address] [place] [address] Dr. Erasmo Smith HGB 10.5 g/dl Critically low 12.0-16.0 [facility] Comment on above: Performed By: #### C ANGELA #### [facility] [address] [place] [address] Dr. Erasmo Smith LYMPHM # 0.76 103/ul Critically low 1.20-3.80 [facility] Comment on above: Performed By: #### C AGNELA #### [facility] [address] [place] [address] Dr. Erasmo Smith LYMPHM% 4.0 % Critically low 20.5-60.0 [facility] Comment on above: Performed By: #### C BCBLAISE #### [facility] [address] [address] [address] Erasmo Smith MCH 25.9 pg Critically low 26.7-34.0 [facility] Comment on above: Performed By: #### C BCBLAISE #### [facility] [address] [address] [address] Erasmo Smith MCHC 32.1 g/dl Normal 29.9-35.2 [facility] Comment on above: Performed By: #### C ANGELA #### [facility] [address] [address] [address] Erasmo Smith MCV 80.5 fL Critically low 81.0-99.0 [facility] Comment on above: Performed By: #### C ANGELA #### [facility] [address] [place] [address] Dr. Erasmo Smith METAMYELOCYTE # Normal [facility] Comment on above: Performed By: #### C ANGELA #### [facility] [address] [place] [address] Dr. Erasmo Smith METAMYELOCYTE % Normal [facility] Comment on above: Performed By: #### C ANGELA #### [facility] [address] [place] [address] Dr. Erasmo Smith MONOM# 1.14 103/ul Critically high 0.30-0.80 [facility] Comment on above: Performed By: #### C ANGELA #### [facility] [address] [place] [address] Dr. Erasmo Smith MONOM% 6.0 % Normal 1.7-12.0 [facility] Comment on above: Performed By: #### C ANGELA #### [facility] [address] [place] [address] Dr. Erasmo Smith MPV 9.4 fL Critically low 9.5-13.5 [facility] Comment on above: Performed By: #### C ANGELA #### [facility] [address] [place] [address] Dr. Erasmo Smith MYELOCYTE # Normal [facility] Comment on above: Performed By: #### C ANGELA #### [facility] [address] [place] [address] Dr. Erasmo Smith MYELOCYTE % Normal [facility] Comment on above: Performed By: #### C ANGELA #### [facility] [address] [place] [address] Dr. Erasmo Smith NRBC Normal [facility] Comment on above: Performed By: #### C ANGELA #### [facility] [address] [place], [place] [address] Dr. Erasmo Smith PLT 195 103/ul Normal 150-450 [facility] Comment on above: Performed By: #### C ANGELA #### [facility] [address] [id number] Erasmo Smith RBC 4.06 106/ul Critically low 4.20-5.40 [facility] Comment on above: Performed By: #### C ANGELA #### [facility] [address] [address] [address] Erasmo Smith RDW 17.7 % Critically high 11.0-15.0 [facility] Comment on above: Performed By: #### Yamile MILLER #### [facility] [address] [address] [address] Erasmo Smith SEG # 16.34 103/ul Critically high 1.40-6.50 [facility] Comment on above: Performed By: #### Yamile MILLER #### [facility] [address] [address] [address] Erasmo Smith SEG % 86.0 % Critically high 43.0-75.0 [facility] Comment on above: Performed By: #### Yamile MILLER #### [facility] [address] [address] [address] Erasmo Smith WBC 19.0 103/ul Critically high 4.0-11.0 [facility] Comment on above: Performed By: #### Yamile MILLER #### [facility] [address] [address] [address] HEAD WO CONon [...] SALOME MCCORMICK Date: 2022 14:50 Normal [facility] CULTURE BLOODon 2022 Microscopic examination of blood, culture Culture Observations: Aerobic and Anaerobic bottle positive. BCID: E. Coli Culture Observations: Refer to for VIOLET. Isolate 1 Escherichia coli Growth of Normal [facility] Comment on above: Performed By: #### B LDCX2 ####[facility] [address] [place], [place] [address]FdDr. Erasmo Smith [facility]11 SARS-CoV-2 (COVID-19) RNA EMILY+probe Ql (Unsp spec) Not detected Normal NOT DETECTED [facility] Comment on above: Result Comment: When [...] for this test is supported by the Social Sciences Research Scientist of Health and Human Service's declaration that [...] used). Performed By: #### C MREP #### [facility] [address] [place], [place] [address] Dr. Erasmo Smith LACTATE/LACTIC ACIDon 2022 Lactate [Moles/Vol] 1.2 mmol/L Normal 0.4-2.0 [facility] Comment on above: Performed By: #### L ACT ####[facility] [address] [id number]. Erasmo Smith PH VENOUS BLOODon 2022 PCO2 VENOUS 37.8 mmHg Critically low 40.0-52.0 [facility] Comment on above: Performed By: #### P HVEN ####[facility] [address] [id number]. Erasmo Smith pH VENOUS 7.417 Normal 7.330-7.430 [facility] Comment on above: Performed By: #### P HVEN ####[facility] [address] [address]Dr. Erasmo Smith PROF 14(COMP METB)on 023 Albumin [Mass/Vol] 3.1 g/dL Critically low 3.4-5.0 [facility] Comment on above: Performed By: #### H ALEXSANDER, CMP ####[facility] [address] [address]Dr. Erasmo Smith Albumin/Globulin [Mass ratio] 0.8 {ratio} Normal [facility] Comment on above: Performed By: #### H ALEXSANDER, CMP ####[facility] [address] [address]Dr. Erasmo Smith ALP [Catalytic activity/Vol] 194 U/L Critically high 46-116 [facility] Comment on above: Performed By: #### H ALEXSANDER, CMP ####[facility] [address] [address]Dr. Erasmo Smith ALT [Catalytic activity/Vol] 37 U/L Normal 14-59 [facility] Comment on above: Performed By: #### H ALEXSANDER, CMP ####[facility] [address] [address]Dr. Erasmo Smith Anion gap [Moles/Vol] 14.6 mmol/L Normal [facility] Comment on above: Performed By: #### H ALEXSANDER, CMP ####[facility] [address] [address]Dr. Erasmo Smith AST [Catalytic activity/Vol] 32 U/L Normal 15-37 [facility] Comment on above: Performed By: #### H STROPN, CMP ####[facility] [address] [address]Dr. Erasmo Smith Bilirubin [Mass/Vol] 1.0 mg/dL Normal 0.2-1.0 [facility] Comment on above: Performed By: #### H STROPN, CMP ####[facility] [address] [place], [place] [address]Dr. Erasmo Smith Calcium [Mass/Vol] 8.9 mg/dL Normal 8.5-10.1 [facility] Comment on above: Performed By: #### H STROPN, CMP ####[facility] [address] [place], [place] [address]Dr. Erasmo Smith Chloride [Moles/Vol] 103 mmol/L Normal 98-107 [facility] Comment on above: Performed By: #### H STROPN, CMP ####[facility] [address] [place], [place] [address]Dr. Erasmo Smith CO2 [Moles/Vol] 23.6 mmol/L Normal 21.0-32.0 [facility] Comment on above: Performed By: #### H STROPN, CMP ####[facility] [address] [place], [place] [address]Dr. Erasmo Smith Creatinine [Mass/Vol] 0.69 mg/dL Normal 0.55-1.02 [facility] Comment on above: Performed By: #### H STROPN, CMP ####[facility] [address] [place], [place] [address]Dr. Erasmo Smith EGFR-AF ENGLISH >60 Normal >=60 [facility] Comment on above: Performed By: #### H STROPN, CMP ####[facility] [address] [place], [place] [address]Dr. Erasmo Smith EGFR-NON AF ENGLISH >60 Normal >=60 [facility] Comment on above: Performed By: #### H STROPN, CMP ####[facility] [address] [place], [place] [address]Dr. Erasmo Smith Globulin (S) [Mass/Vol] 4.1 g/dL Normal [facility] Comment on above: Performed By: #### H ALEXSANDER, CMP ####[facility] [address] [address]Dr. Erasmo Smith Glucose [Mass/Vol] 121 mg/dL Critically high 74-106 [facility] Comment on above: Performed By: #### H ALEXSANDER, CMP ####[facility] [address] [address]Dr. Erasmo Smith Potassium [Moles/Vol] 3.2 mmol/L Critically low 3.5-5.1 [facility] Comment on above: Performed By: #### H ALEXSANDER, CMP ####[facility] [address] [address]Dr. Erasmo Smith Protein [Mass/Vol] 7.2 g/dL Normal 6.4-8.2 [facility] Comment on above: Performed By: #### H ALEXSANDER, CMP ####[facility] [address] [place], [place] [address]Dr. Erasmo Smith Sodium [Moles/Vol] 138 mmol/L Normal 136-145 [facility] Comment on above: Performed By: #### H ALEXSANDER, CMP ####[facility] [address] [address]Dr. Erasmo Smith Urea nitrogen [Mass/Vol] 17.0 mg/dL Normal 7.0-18.0 [facility] Comment on above: Performed By: #### H ALEXSANDER, CMP ####[facility] [address] [address]Dr. Erasmo Smith Urea nitrogen/Creatinine [Mass ratio] 24.6 mg/mg Normal [facility] Comment on above: Performed By: #### H ALEXSANDER, CMP ####[facility] [address] [address]Dr. Erasmo Smith PROTIMEon 2022 INR Coag (PPP) [Relative time] 3.58 {INR} Normal [facility] Comment on above: Performed By: #### P T, PTT #### [facility] [address] [place] [address] Dr. Erasmo Smith INR GUIDELINES SEE BELOW Normal [facility] Comment on above: Result Comment: ABNER RED INR: 2.0 - 3.0 CONDITIONS NOT LISTED BELOW 2.5 - 3.5 FOR PROSTHETIC HEART VALVE REPLACEMENT 2.5 - 3.5 RECURRENT THROMBOSIS Performed By: #### P T, PTT #### [facility] [address] [place] [address] Dr. Erasmo Smith PT Coag (PPP) [Time] 35.3 s Critically high 9.0-11.6 [facility] Comment on above: Performed By: #### P T, PTT #### [facility] [address] [place] [address] Dr. Erasmo Smith PTTon 2022 aPTT Coag (Bld) [Time] 40.3 s Critically high 22.3-36. 2 [facility] Comment on above: Performed By: #### P T, PTT #### [facility] [address] [place] [address] Dr. Erasmo Smith TROPONIN, HIGH SENSITIVITYon 2022 HSTROP 194.7 pg/mL Critically high 4.0-51.3 [facility] Comment on above: Result Comment: CUT- OFF POINTS HAVE BEEN ESTABLISHED BASED ON THE FOURTH UNIVERSAL DEFINITIONS OF MYOCARDIAL INFARCTION. THE UPPER REFERENCE LIMIT (URL) OF TROPONIN, DEFINED THE 99TH PERCENTILE OF cTnI DISTRIBUTION IN A REFERENCE POPULATION, HAS BEEN CONFIRMED THE DECISION THRESHOLD FOR MD DIAGNOSIS. Performed By: #### C MREP #### [facility] [address] [place] [address] Dr. Erasmo Smith HSTROP 218.0 pg/mL Critically high 4.0-51.3 [facility] Comment on above: Result Comment: CUT- OFF POINTS HAVE BEEN ESTABLISHED BASED ON THE FOURTH UNIVERSAL DEFINITIONS OF MYOCARDIAL INFARCTION. THE UPPER REFERENCE LIMIT (URL) OF TROPONIN, DEFINED THE 99TH PERCENTILE OF cTnI DISTRIBUTION IN A REFERENCE POPULATION, HAS BEEN CONFIRMED THE DECISION THRESHOLD FOR MD DIAGNOSIS. Performed By: #### B DIRECTOR OF PROMOTIONS #### [facility] [address] [place] [address] Dr. Erasmo Smith XR CHEST 1 Von [...] by: HONG ALSTON Date: 2022 14:18 Normal [facility] MAMM SCREEN 3D TOÑITO CADon 11-26-2022 MG MAMM SCREEN 3D TOÑITO CAD Patient: BREANN STARKS Exam Date: 11/26/2022 : 1945 Gender:F Ordering : DR LUISANA FISHER . Admission #: [id number] Family : Order #: [id number] CLICK HERE TO VIEW EXAM RADIOLOGY REPORT [...] Treatments None Family Cancers None LOCATION: [facility] BREAST COMPOSITION: Heterogeneously dense,which may [...] Delgado M.D. on 11/26/2022 at 14:13 Normal [facility] PROF 14(COMP METB)on 022 Albumin [Mass/Vol] 3.8 g/dL Normal 3.4-5.0 [facility] Comment on above: Performed By: #### C MREP #### [facility] [address] [place] [address] Dr. Erasmo Smith Albumin/Globulin [Mass ratio] 0.8 {ratio} Normal [facility] Comment on above: Performed By: #### C MREP #### [facility] [address] [place] [address] Dr. Erasmo Smith ALP [Catalytic activity/Vol] 102 U/L Normal 46-116 [facility] Comment on above: Performed By: #### C MREP #### [facility] [address] [place] [address] Dr. Erasmo Smith ALT [Catalytic activity/Vol] 47 U/L Normal 14-59 [facility] Comment on above: Performed By: #### C MREP #### [facility] [address] [place] [address] Dr. Erasmo Smith Anion gap [Moles/Vol] 12.5 mmol/L Normal [facility] Comment on above: Performed By: #### C MREP #### [facility] [address] [place] [address] Dr. Erasmo Smith AST [Catalytic activity/Vol] 36 U/L Normal 15-37 [facility] Comment on above: Performed By: #### C MREP #### [facility] [address] [place] [address] Dr. Erasmo Smith Bilirubin [Mass/Vol] 0.3 mg/dL Normal 0.2-1.0 [facility] Comment on above: Performed By: #### C MREP #### [facility] [address] [place] [address] Dr. Erasmo Smith Calcium [Mass/Vol] 8.9 mg/dL Normal 8.5-10.1 [facility] Comment on above: Performed By: #### C MREP #### [facility] [address] [place] [address] Dr. Erasmo Smith Chloride [Moles/Vol] 106 mmol/L Normal 98-107 [facility] Comment on above: Performed By: #### C MREP #### [facility] [address] [address] [address] Erasmo Smith CO2 [Moles/Vol] 26.9 mmol/L Normal 21.0-32.0 [facility] Comment on above: Performed By: #### C MREP #### [facility] [address] [address] [address] Erasmo Smith Creatinine [Mass/Vol] 0.79 mg/dL Normal 0.55-1.02 [facility] Comment on above: Performed By: #### C MREP #### [facility] [address] [place] [address] Dr. Erasmo Smith EGFR-AF ENGLISH >60 Normal >=60 [facility] Comment on above: Performed By: #### C MREP #### [facility] [address] [place] [address] Dr. Erasmo Smith EGFR-NON AF ENGLISH >60 Normal >=60 [facility] Comment on above: Performed By: #### C MREP #### [facility] [address] [address] [address] Erasmo Smith Globulin (S) [Mass/Vol] 4.6 g/dL Normal [facility] Comment on above: Performed By: #### C MREP #### [facility] [address] [address] [address] Erasmo Smith Glucose [Mass/Vol] 102 mg/dL Normal 74-106 [facility] Comment on above: Performed By: #### C MREP #### [facility] [address] [address] [address] Erasmo Smith Potassium [Moles/Vol] 4.4 mmol/L Normal 3.5-5.1 [facility] Comment on above: Performed By: #### C MREP #### [facility] [address] [address] [address] Erasmo Smith Protein [Mass/Vol] 8.4 g/dL Critically high 6.4-8.2 [facility] Comment on above: Performed By: #### C MREP #### [facility] [address] [address] [address] Erasmo Smith Sodium [Moles/Vol] 141 mmol/L Normal 136-145 [facility] Comment on above: Performed By: #### C MREP #### [facility] [address] [address] [address] Erasmo Smith Urea nitrogen [Mass/Vol] 28.0 mg/dL Critically high 7.0-18.0 [facility] Comment on above: Performed By: #### C MREP #### [facility] [address] [place] [address] Dr. Erasmo Smith Urea nitrogen/Creatinine [Mass ratio] 35.4 mg/mg Normal [facility] Comment on above: Performed By: #### C MREP #### [facility] [address] [place] [address] Dr. Erasmo Smith CBC AUTO DIFFon 07-12-2022 BASO # 0.1 103/ul Normal 0.0-0.1 [facility] Comment on above: Performed By: #### B DIRECTOR OF PROMOTIONS #### [facility] [address] [place] [address] Dr. Erasmo Smith Basophils/100 WBC (Bld) 0.5 % Normal 0.2-2.0 [facility] Comment on above: Performed By: #### B DIRECTOR OF PROMOTIONS #### [facility] [address] [place] [address] Dr. Erasmo Smith EO # 0.2 103/ul Normal 0.0-0.7 [facility] Comment on above: Performed By: #### B DIRECTOR OF PROMOTIONS #### [facility] [address] [place] [address] Dr. Erasmo Smith Eosinophils/100 WBC (Bld) 2.5 % Normal 0.9-7.0 [facility] Comment on above: Performed By: #### B DIRECTOR OF PROMOTIONS #### [facility] [address] [place] [address] Dr. Erasmo Smith Erythrocyte distribution width (RBC) [Ratio] 17.2 % Critically high 11.0-15.0 [facility] Comment on above: Performed By: #### B DIRECTOR OF PROMOTIONS #### [facility] [address] [place] [address] Dr. Erasmo Smith Hematocrit (Bld) [Volume fraction] 35.0 % Critically low 36.0-48.0 [facility] Comment on above: Performed By: #### B DIRECTOR OF PROMOTIONS #### [facility] [address] [place] [address] Dr. Erasmo Smith Hemoglobin (Bld) [Mass/Vol] 11.3 g/dL Critically low 12.0-16.0 [facility] Comment on above: Performed By: #### B DIRECTOR OF PROMOTIONS #### [facility] [address] [place] [address] Dr. Erasmo Smith IG # 0.02 10e3/ul Normal 0.00-0.03 [facility] Comment on above: Performed By: #### B DIRECTOR OF PROMOTIONS #### [facility] [address] [place] [address] Dr. Erasmo Smith IG % 0.2 % Normal 0.0-0.5 [facility] Comment on above: Performed By: #### B DIRECTOR OF PROMOTIONS #### [facility] [address] [place] [address] Dr. Erasmo Smith LYMPH # 2.3 103/ul Normal 1.2-3.8 [facility] Comment on above: Performed By: #### B DIRECTOR OF PROMOTIONS #### [facility] [address] [place] [address] Dr. Erasmo Smith Lymphocytes/100 WBC (Bld) 25.4 % Normal 20.5-60.0 [facility] Comment on above: Performed By: #### B DIRECTOR OF PROMOTIONS #### [facility] [address] [place] [address] Dr. Erasmo Smith MANUAL DIFF REQ NO Normal [facility] Comment on above: Performed By: #### B DIRECTOR OF PROMOTIONS #### [facility] [address] [place] [address] Dr. Erasmo Smith MCH (RBC) [Entitic mass] 25.5 pg Critically low 26.7-34.0 [facility] Comment on above: Performed By: #### B DIRECTOR OF PROMOTIONS #### [facility] [address] [address] [address] Erasmo Smith MCHC (RBC) [Mass/Vol] 32.3 g/dL Normal 29.9-35.2 [facility] Comment on above: Performed By: #### B DIRECTOR OF PROMOTIONS #### [facility] [address] [address] [address] Erasmo Smith MCV (RBC) [Entitic vol] 78.8 fL Critically low 81.0-99.0 [facility] Comment on above: Performed By: #### B DIRECTOR OF PROMOTIONS #### [facility] [address] [place] [address] Dr. Erasmo Smith MONO # 0.7 103/ul Normal 0.3-0.8 [facility] Comment on above: Performed By: #### B DIRECTOR OF PROMOTIONS #### [facility] [address] [place] [address] Dr. Erasmo Smith Monocytes/100 WBC (Bld) 7.5 % Normal 1.7-12.0 [facility] Comment on above: Performed By: #### B DIRECTOR OF PROMOTIONS #### [facility] [address] [place] [address] Dr. Erasmo Smith NEUT # 5.9 103/ul Normal 1.4-6.5 [facility] Comment on above: Performed By: #### B DIRECTOR OF PROMOTIONS #### [facility] [address] [place] [address] Dr. Erasmo Smith Neutrophils/100 WBC (Bld) 63.9 % Normal 43.0-75.0 [facility] Comment on above: Performed By: #### B DIRECTOR OF PROMOTIONS #### [facility] [address] [place] [address] Dr. Erasmo Smith Platelet mean volume (Bld) [Entitic vol] 9.0 fL Critically low 9.5-13.5 [facility] Comment on above: Performed By: #### B DIRECTOR OF PROMOTIONS #### [facility] [address] [place] [address] Dr. Erasmo Smith PLT 305 103/ul Normal 150-450 [facility] Comment on above: Performed By: #### B DIRECTOR OF PROMOTIONS #### [facility] [address] [place], [place] [address] Dr. Erasmo Smith RBC 4.44 106/ul Normal 4.20-5.40 [facility] Comment on above: Performed By: #### B DIRECTOR OF PROMOTIONS #### [facility] [address] [place], [place] [address] Dr. Erasmo mSith WBC 9.2 103/ul Normal 4.0-11.0 [facility] Comment on above: Performed By: #### B DIRECTOR OF PROMOTIONS #### [facility] [address] [place], [place] [address] CHEST WO CONon [...] PAULA DELGADO Date: 2022-05-27 15:27 Normal [facility] HEMOGLOBINon 04-20-2022 Hemoglobin (Bld) [Mass/Vol] 10.6 g/dL Critically low 12.0-16.0 [facility] Comment on above: Performed By: #### H GB ####[facility] [address] [place], [place] [address]CsDr. Erasmo Smith CULTURE SPUTUMon 04-02-2022 CULTURE SPUTUM Isolate 1 Pseudomonas aeruginosa Light growth of ORGANISM 1 Pseudomonas aeruginosa ANTIBIOTIC M.I.C RX STATUS Piperacillin/Tazobac saez 8 S F Ceftazidime 2 S F Imipenem 1 S F Amikacin <=2 S F Gentamicin <=1 S F Tobramycin <=1 S F Ciprofloxacin <=0.25 S F Levofloxacin 0.25 S F Normal [facility] Comment on above: Performed By: #### S PUTCX ####[facility] [address] [address]Dr. Erasmo Smith CYTOLOGYon 03-30-2022 SENT TO REF LAB 03/31/22 Normal [facility] Comment on above: Performed By: #### C YTO #### [facility] [address] [place] [address] Dr. Erasmo Smith SPUTUM GRAM STAINon 03-30-20 COMMENTS [facility] Comment on above: Performed By: #### B DIRECTOR OF PROMOTIONS #### [facility] [address] [place] [address] Dr. Erasmo Smith DIPHTHEROIDS [facility] Comment on above: Performed By: #### B DIRECTOR OF PROMOTIONS #### [facility] [address] [place] [address] Dr. Erasmo Smith EPITHELIALS <25 [facility] Comment on above: Performed By: #### B DIRECTOR OF PROMOTIONS #### [facility] [address] [place] [address] Dr. Erasmo Smith FUNGAL ELEMENTS Normal [facility] Comment on above: Performed By: #### B DIRECTOR OF PROMOTIONS #### [facility] [address] [place] [address] Dr. Erasmo CINTRON NEG BACILLI FEW [facility] Comment on above: Performed By: #### B DIRECTOR OF PROMOTIONS #### [facility] [address] [place] [address] Dr. Erasmo CINTRON NEG DIPPLOCOCCI [facility] Comment on above: Performed By: #### B DIRECTOR OF PROMOTIONS #### [facility] [address] [place] [address] Dr. Erasmo Smith GRAM POS BACILLI [facility] Comment on above: Performed By: #### B DIRECTOR OF PROMOTIONS #### [facility] [address] [address] [address] Erasmo Smith GRAM POSITIVE COCCI MANY Normal [facility] [place] [facility] Comment on above: Performed By: #### B DIRECTOR OF PROMOTIONS #### [facility] [address] [address] [address] Erasmo Smith WBC (Bld) [#/Vol] 10*3/uL Normal [facility] Comment on above: Performed By: #### B DIRECTOR OF PROMOTIONS #### [facility] [address] [address] [address] Erasmo Smith SPUTUM CULTUREon 03-01-2022 Epithelial cells LM Ql (Urine sed) Few Normal [facility] Comment on above: Performed By: #### C XSPTUM ####[facility] [address] [address]DrMeena Smith Gram Stain Evaluation Comment Normal [facility] Comment on above: Result Comment: This specimen is of good quality and is acceptable for routine bacterial culture. Performed By: #### C XSPTUM ####[facility] [address] [address]Dr. Erasmo Smith Lower Respiratory Culture Final report [facility] Comment on above: Performed By: #### C XSPTUM ####[facility] [address] [address]Dr. Erasmo Smith Result 1 Comment Normal [facility] Comment on above: Result Comment: Few gram positive cocci Performed By: #### C XSPTUM ####[facility] [address] [address]Dr. Erasmo Smith Result Comment: Rout ine respiratory adria Result 2 Normal [facility] Comment on above: Performed By: #### C XSPTUM ####[facility] [address] [address]Dr. Erasmo Smith Result 3 Normal [facility] Comment on above: Performed By: #### C XSPTUM ####[facility] [address] [address]Dr. Erasmo Smith Result 4 Normal [facility] Comment on above: Performed By: #### C XSPTUM ####[facility] [address] [id number] Erasmo Smith White Blood Cells Few Normal [facility] Comment on above: Performed By: #### C XSPTUM ####[facility] [address] [place], [place] [address]TvDr. Erasmo Smith BNPon 02-24-2022 Natriuretic peptide B (Bld) [Mass/Vol] 319.0 pg/mL Normal <=900.0 [facility] Comment on above: Performed By: #### B DIRECTOR OF PROMOTIONS #### [facility] [address] [address] [address] Erasmo Smith CBC AUTO DIFFon 02-24-2022 BASO # 0.1 103/ul Normal 0.0-0.1 [facility] Comment on above: Performed By: #### C MREP #### [facility] [address] [place] [address] Dr. Erasmo Smith Basophils/100 WBC (Bld) 0.5 % Normal 0.2-2.0 [facility] Comment on above: Performed By: #### C MREP #### [facility] [address] [place] [address] Dr. Erasmo Smith EO # 0.3 103/ul Normal 0.0-0.7 [facility] Comment on above: Performed By: #### C MREP #### [facility] [address] [place] [address] Dr. Erasmo Smith Eosinophils/100 WBC (Bld) 3.1 % Normal 0.9-7.0 [facility] Comment on above: Performed By: #### C MREP #### [facility] [address] [place] [address] Dr. Erasmo Smith Erythrocyte distribution width (RBC) [Ratio] 15.1 % Critically high 11.0-15.0 [facility] Comment on above: Performed By: #### C MREP #### [facility] [address] [place] [address] Dr. Erasmo Smith Hematocrit (Bld) [Volume fraction] 33.9 % Critically low 36.0-48.0 [facility] Comment on above: Performed By: #### C MREP #### [facility] [address] [place] [address] Dr. Erasmo Smith Hemoglobin (Bld) [Mass/Vol] 10.7 g/dL Critically low 12.0-16.0 [facility] Comment on above: Performed By: #### C MREP #### [facility] [address] [place] [address] Dr. Erasmo Smith IG # 0.03 10e3/ul Normal 0.00-0.03 [facility] Comment on above: Performed By: #### C MREP #### [facility] [address] [place] [address] Dr. Erasmo Smith IG % 0.3 % Normal 0.0-0.5 [facility] Comment on above: Performed By: #### C MREP #### [facility] [address] [place] [address] Dr. Erasmo Smith LYMPH # 2.8 103/ul Normal 1.2-3.8 [facility] Comment on above: Performed By: #### C MREP #### [facility] [address] [place] [address] Dr. Erasmo Smith Lymphocytes/100 WBC (Bld) 30.6 % Normal 20.5-60.0 [facility] Comment on above: Performed By: #### C MREP #### [facility] [address] [place] [address] Dr. Erasmo Smith MANUAL DIFF REQ NO Normal [facility] Comment on above: Performed By: #### C MREP #### [facility] [address] [place] [address] Dr. Erasmo Smith MCH (RBC) [Entitic mass] 26.9 pg Normal 26.7-34.0 [facility] Comment on above: Performed By: #### C MREP #### [facility] [address] [place] [address] Dr. Erasmo Smtih MCHC (RBC) [Mass/Vol] 31.6 g/dL Normal 29.9-35.2 [facility] Comment on above: Performed By: #### C MREP #### [facility] [address] [address] [address] Erasmo Smith MCV (RBC) [Entitic vol] 85.2 fL Normal 81.0-99.0 [facility] Comment on above: Performed By: #### C MREP #### [facility] [address] [address] [address] Erasmo Smith MONO # 0.7 103/ul Normal 0.3-0.8 [facility] Comment on above: Performed By: #### C MREP #### [facility] [address] [place] [address] Dr. Erasmo Smith Monocytes/100 WBC (Bld) 7.9 % Normal 1.7-12.0 [facility] Comment on above: Performed By: #### C MREP #### [facility] [address] [place] [address] Dr. Erasmo Smith NEUT # 5.3 103/ul Normal 1.4-6.5 [facility] Comment on above: Performed By: #### C MREP #### [facility] [address] [place] [address] Dr. Erasmo Smith Neutrophils/100 WBC (Bld) 57.6 % Normal 43.0-75.0 [facility] Comment on above: Performed By: #### C MREP #### [facility] [address] [place] [address] Dr. Erasmo Smith Platelet mean volume (Bld) [Entitic vol] 9.0 fL Critically low 9.5-13.5 [facility] Comment on above: Performed By: #### C MREP #### [facility] [address] [place] [address] Dr. Erasmo Smith PLT 249 103/ul Normal 150-450 [facility] Comment on above: Performed By: #### C MREP #### [facility] [address] [place] [address] Dr. Erasmo Smith RBC 3.98 106/ul Critically low 4.20-5.40 [facility] Comment on above: Performed By: #### C MREP #### [facility] [address] [address] [address] Erasmo Smith WBC 9.1 103/ul Normal 4.0-11.0 [facility] Comment on above: Performed By: #### C MREP #### [facility] [address] [address] [address] Erasmo Smith CTA CHEST WO W [...] PAULA DELGADO Date: 2022-02-24 18:24 Normal [facility] D-DIMERon 02-24-2022 D-DIMER 1.36 mg/L FEU Critically high <=0.59 [facility] Comment on above: Performed By: #### D DIM #### [facility] [address] [address] [address] Erasmo Smith D-DIMER COMMENTS SEE BELOW Normal [facility] Comment on above: Result Comment: Incr [...] hospitalization. Performed By: #### D DIM #### [facility] [address] [place] [address] Dr. Erasmo Smith PROF 14(COMP METB)on 022 Albumin [Mass/Vol] 3.6 g/dL Normal 3.4-5.0 [facility] Comment on above: Performed By: #### C MREP #### [facility] [address] [place] [address] Dr. Erasmo Smith Albumin/Globulin [Mass ratio] 0.8 {ratio} Normal [facility] Comment on above: Performed By: #### C MREP #### [facility] [address] [place] [address] Dr. Erasmo Smith ALP [Catalytic activity/Vol] 95 U/L Normal 46-116 [facility] Comment on above: Performed By: #### C MREP #### [facility] [address] [place] [address] Dr. Erasmo Smith ALT [Catalytic activity/Vol] 45 U/L Normal 14-59 [facility] Comment on above: Performed By: #### C MREP #### [facility] [address] [place] [address] Dr. Erasmo Smith Anion gap [Moles/Vol] 15.9 mmol/L Normal [facility] Comment on above: Performed By: #### C MREP #### [facility] [address] [place] [address] Dr. Erasmo Simth AST [Catalytic activity/Vol] 33 U/L Normal 15-37 [facility] Comment on above: Performed By: #### C MREP #### [facility] [address] [address] [address] Erasmo Smith Bilirubin [Mass/Vol] 0.5 mg/dL Normal 0.2-1.0 [facility] Comment on above: Performed By: #### C MREP #### [facility] [address] [address] [address] Erasmo Smith Calcium [Mass/Vol] 9.1 mg/dL Normal 8.5-10.1 [facility] Comment on above: Performed By: #### C MREP #### [facility] [address] [address] [address] Erasmo Smith Chloride [Moles/Vol] 103 mmol/L Normal 98-107 [facility] Comment on above: Performed By: #### C MREP #### [facility] [address] [address] [address] Erasmo Smith CO2 [Moles/Vol] 25.1 mmol/L Normal 21.0-32.0 [facility] Comment on above: Performed By: #### C MREP #### [facility] [address] [address] [address] Erasmo Smith Creatinine [Mass/Vol] 0.77 mg/dL Normal 0.55-1.02 [facility] Comment on above: Performed By: #### C MREP #### [facility] [address] [address] [address] Erasmo Smith EGFR-AF ENGLISH >60 Normal >=60 [facility] Comment on above: Performed By: #### C MREP #### [facility] [address] [address] [address] Erasmo Smith EGFR-NON AF ENGLISH >60 Normal >=60 [facility] Comment on above: Performed By: #### C MREP #### [facility] [address] [address] [address] Erasmo Smith Globulin (S) [Mass/Vol] 4.3 g/dL Normal [facility] Comment on above: Performed By: #### C MREP #### [facility] [address] [address] [address] Erasmo Smith Glucose [Mass/Vol] 92 mg/dL Normal 74-106 [facility] Comment on above: Performed By: #### C MREP #### [facility] [address] [address] [address] Erasmo Smith Potassium [Moles/Vol] 4.0 mmol/L Normal 3.5-5.1 [facility] Comment on above: Performed By: #### C MREP #### [facility] [address] [address] [address] Erasmo Smith Protein [Mass/Vol] 7.9 g/dL Normal 6.4-8.2 [facility] Comment on above: Performed By: #### C MREP #### [facility] [address] [address] [address] Erasmo Smith Sodium [Moles/Vol] 140 mmol/L Normal 136-145 [facility] Comment on above: Performed By: #### C MREP #### [facility] [address] [address] [address] Erasmo Smith Urea nitrogen [Mass/Vol] 17.0 mg/dL Normal 7.0-18.0 [facility] Comment on above: Performed By: #### C MREP #### [facility] [address] [address] [address] Erasmo mSith Urea nitrogen/Creatinine [Mass ratio] 22.1 mg/mg Normal [facility] Comment on above: Performed By: #### C MREP #### [facility] [address] [address] [address] Erasmo Smith PROTIMEon 02-24-2022 INR Coag (PPP) [Relative time] 2.28 {INR} Normal [facility] Comment on above: Performed By: #### P T, PTT ####[facility] [address] [address]Dr. Erasmo Smith INR GUIDELINES SEE BELOW Normal [facility] Comment on above: Result Comment: ABNER RED INR: 2.0 - 3.0 CONDITIONS NOT LISTED BELOW 2.5 - 3.5 FOR PROSTHETIC HEART VALVE REPLACEMENT 2.5 - 3.5 RECURRENT THROMBOSIS Performed By: #### P T, PTT ####[facility] [address] [place], [place] [address]AxDr. Erasmo Smith PT Coag (PPP) [Time] 23.3 s Critically high 9.0-11.6 [facility] Comment on above: Performed By: #### P T, PTT ####[facility] [address] [place], [place] [address]UzDr. Erasmo Smith PTTon 02-24-2022 aPTT Coag (Bld) [Time] 34.7 s Normal 22.3-36.2 [facility] Comment on above: Performed By: #### P T, PTT ####[facility] [id number] [place], [place] [address]JpMeena Smith TROPONIN, HIGH SENSITIVITYon 02-24-2022 HSTROP 6.6 pg/mL Normal 4.0-51.3 [facility] Comment on above: Result Comment: CUT- OFF POINTS HAVE BEEN ESTABLISHED BASED ON THE FOURTH UNIVERSAL DEFINITIONS OF MYOCARDIAL INFARCTION. THE UPPER REFERENCE LIMIT (URL) OF TROPONIN, DEFINED THE 99TH PERCENTILE OF cTnI DISTRIBUTION IN A REFERENCE POPULATION, HAS BEEN CONFIRMED THE DECISION THRESHOLD FOR MD DIAGNOSIS. Performed By: #### C MREP #### [facility] [address] [place], [place] [address] Dr. Erasmo Smith PROTHROMBIN TIMEon INR Coag (PPP) [Relative time] 1.2 {INR} High 0.86-1.16 [facility] Comment on above: Result Comment: INR Theraputic Range: 2.0-3.5 Performed at [facility] [id number] [place] [id number] PT Coag (PPP) [Time] 12.7 s Normal 9.3-12.7 [facility] ANTICOAGULANT COUMADIN Normal [facility] Vital Signs Date Time Vital Sign Value Performing Clinician Facility 03-02-2024 11:51-0400 Blood Pressure Location Ortega ALEXANDER [facility] [place] 03-02-2024 11:51-0400 Diastolic blood pressure 75 mm[Hg] Rotega NILL [facility] [place] 03-02-2024 11:51-0400 Heart rate 71 /min Ortega NILL [facility] 03-02-2024 11:51-0400 Respiratory rate 16 /min Ortega NILL [facility] [place] 03-02-2024 11:51-0400 Systolic blood pressure 118 mm[Hg] Ortega NILL [facility] [place] 10-07-2021 16:00-0500 Body height 146.69 cm Hong Nevarez Other [facility] Other 10-07-2021 16:00-0500 Body mass index (BMI) [Ratio] 51.01 kg/m2 Hong Nevarez Other [facility] Other 10-07-2021 16:00-0500 Body weight 109.77 kg Hong Nevarez Other [facility] Other 08-26-2021 15:15-0500 Body height 146.69 cm Hong Nevarez Other [facility] Other 08-26-2021 15:15-0500 Body mass index (BMI) [Ratio] 51.07 kg/m2 Hong Jimenezkes Other [facility] Other 08-26-2021 15:15-0500 Body weight 109.91 kg Hong Jimenezkes Other [facility] Other Encounters Encounter Date Encounter Type Care Provider Facility Start: 04-11-2024 End: 04-11-2024 ambulatory SHAIKH CIRA Not Available Start: 04-10-2024 End: 04-10-2024 Patient encounter procedure MD Shaikh Denis Work Phone: [facility] [place] [facility] [place] Work Phone: Start: 04-10-2024 End: 04-10-2024 ambulatory MD Shaikh Denis Work Phone: [facility] [place] [facility] Work Phone: Start: 04-02-2024 End: 04-02-2024 ambulatory Miguel Murphy MD Facility:[facility] Start: 03-29-2024 End: 03-29-2024 Patient encounter procedure MD Shaikh Denis Work Phone: [facility] [place] [facility] Start: 03-29-2024 End: 03-29-2024 ambulatory MD Shaikh Denis Work Phone: [facility] [place] [facility] Work Phone: Start: 03-12-2024 End: 03-12-2024 ambulatory SHAIKH CIRA Not Available Start: 03-07-2024 End: 03-07-2024 ambulatory Ortega ALEXANDER Facility:[id number] Start: 03-02-2024 End: 03-02-2024 ambulatory Ortega ALEXANDER Facility:[facility] Start: 03-02-2024 End: 03-02-2024 Patient encounter procedure Ortega ALEXANDER [facility] [place] Start: 03-01-2024 ambulatory Ortega ALEXANDER Facility:[facility] Start: 02-27-2024 End: 02-27-2024 ambulatory SHAIKH CIRA Not Available Start: 01-17-2024 End: 01-17-2024 ambulatory NICANOR [facility] Start: 12-29-2023 End: 12-29-2023 ambulatory SHAIKH CIRA Not Available Start: 12-27-2023 End: 12-27-2023 ambulatory YANCY [facility] Start: 12-26-2023 End: 12-26-2023 ambulatory Miguel Murphy MD Facility:[facility] [place] Start: 12-05-2023 End: 12-05-2023 ambulatory Miguel Murphy MD Facility:[facility] Start: 11-16-2023 End: 11-16-2023 ambulatory Shaikh Cira Facility:[facility] Start: 11-07-2023 End: 11-07-2023 ambulatory SHAIKH CIRA Not Available Start: 10-17-2023 Cristobal Denis MD Work Phone: [facility] Start: 10-17-2023 Cristobal Denis MD Work Phone: [facility] Start: 10-17-2023 End: 10-17-2023 ambulatory SHAIKH CIRA Not Available Start: 10-11-2023 End: 10-11-2023 ambulatory MD Shaikh Denis Work Phone: [facility] [place] [facility] Work Phone: Start: 10-11-2023 End: 10-11-2023 Patient encounter procedure MD Shaikh Denis Work Phone: [facility] [place] [facility] [place] Work Phone: Start: 09-08-2023 End: 09-08-2023 Patient encounter procedure MD Shaikh Denis Work Phone: [facility] [place] [facility] Start: 09-08-2023 End: 09-08-2023 ambulatory MD Shaikh Denis Work Phone: [facility] [place] [facility] Work Phone: Start: 09-06-2023 End: 09-06-2023 ambulatory SHAIKH CIRA Not Available Start: 09-06-2023 Patient encounter procedure Shaikh Cira CUBA Work Phone: [facility] Start: 07-08-2023 End: 07-08-2023 ambulatory [facility] Start: 07-05-2023 End: 07-05-2023 ambulatory [facility] Start: 04-11-2023 End: 04-11-2023 ambulatory Miguel Murphy MD Facility:[facility] Start: 01-31-2023 End: 02-01-2023 ambulatory ANDRIUS GIEDRAITIS Facility:[facility] Start: 01-28-2023 End: 01-29-2023 ambulatory ANDRIUS GIEDITIS Facility:[facility] Start: 01-10-2023 End: 02-09-2023 ambulatory [...] . Facility:[facility] Start: 04-12-2022 End: 05-12-2022 ambulatory Kymberly CIRA Facility:[facility] Start: 03-30-2022 End: 03-30-[address] LUISANA FISHER . Facility:[facility] Start: 03-12-2022 End: 04-09-2022 ambulatory SHAIKH Kymberly DENIS Facility:[facility] Start: 02-25-2022 End: 02-25-[address] LUISANA FISHER . Facility:[facility] Start: 02-24-2022 End: 02-25-[address] LUISANA FISHER . Facility:[facility] Start: 10-07-2021 End: 10-07-2021 ambulatory Hong Nevarez Other [facility] Other Start: 10-07-2021 Office outpatient visit 15 minutes Hong Nevarez [facility] Start: 08-26-2021 End: 08-26-2021 ambulatory Hong Nevarez Other [facility] Other Start: 08-26-2021 Office outpatient ne w 45 minutes Hong Nevarez [facility] Start: 10-11-2020 End: 10-13-2020 Evaluation and management of inpatient ZANE MAYNOR Facility:[facility] Procedures Date Procedure Procedure Detail Performing Clinician Start: 10-11-2023 XR pre/post mri xray MD Shaikh Denis Work Phone: Start: 10-11-2023 MR lumbar spine wo con MD Shaikh Denis Work Phone: Start: 09-20-2021 Cardiac pacemaker, d evice (physical object) Ortega [facility] Comment on above: Dr. Kaur Start: 10-13-2020 [...] of right tot al knee replacement Ortega [employer] Start: 09-12-2001 History of left tota l knee replacement Ortega [facility] Appendectomy Ortega [facility] Arthroscopy of knee Ortega PARKL Comment on above: 06/2012 Arthroscopy of shoulder Brice [facility] Comment on above: left shoulder tear r epaired 08/25 Cardiac catheter (ph ysical object) Ortega [facility] Comment on above: 12/21/ mild CAD Colonoscopy Ortega [facility] Comment on above: 2012 repeat 10 years Ligation of fallopian tube M armando [facility] Repair of musculoten dinous cuff of shoulder Ortega [facility] Comment on above: right Total abdominal hyst erectomy with bilateral salpingo-oophorectomy Ortega [employer] Plan of Treatment Date Care Activity Detail Author Start: 09-12-2027 Screening for malign ant neoplasm of colon [facility] Start: 09-06-2024 Medicare Annual Well ness (AWV) Medicare Annual Wellness (AWV) [facility] Start: 11-07-2023 End: 11-07-2023 Patient encounter procedure 11/07/2023 2:30 PM EST Office Visit [facility] [address] [place] [id number] Shaikh Denis MD [address] [place] [address] [facility] Start: 10-17-2023 End: 10-17-2023 Patient encounter procedure 10/17/2023 10:15 AM EST Office Visit [facility] [address] [place] [address] Shaikh Denis MD [address] [place] [address] Arrived [facility] Comment on above: Arrived Start: 1945 Screening for malign ant neoplasm of colon [facility] Immunizations Immunization Date Immunization Notes Care Provider [facility] 08-25-2023 influenza virus vacc ine, unspecified formulation Ortega ALEXANDER [facility] [place] 07-08-2022 influenza virus vacc ine, unspecified formulation Ortega ALEXANDER [facility] 08-20-2021 influenza virus vacc ine, unspecified formulation Ortega ALEXANDER [facility] 08-20-2021 pneumococcal polysaccharide vaccine, 23 valent Ortega ALEXANDER [facility] 11-18-2020 SARS-CoV-2 (COVID-19 ) mRNA-1273 vaccine Ortega ALEXANDER [facility] 10-20-2020 SARS-CoV-2 (COVID-19 ) mRNA-1273 vaccine Ortega ALEXANDER [facility] 08-04-2020 influenza virus vacc ine, unspecified formulation Ortega ALEXANDER [facility] 08-04-2020 pneumococcal conjuga te vaccine, 13 valent Ortega NILL [facility] 08-06-2019 influenza virus vacc ine, unspecified formulation Ortega NILL [facility] 07-05-2017 influenza virus vacc ine, unspecified formulation Ortega NILL [facility] 07-05-2017 pneumococcal conjuga te vaccine, 13 valent Ortega NILL [facility] 06-29-2016 influenza virus vacc ine, unspecified formulation Ortega NILL [facility] 06-25-2015 influenza virus vacc ine, unspecified formulation Ortega NILL [facility] 06-12-2015 influenza virus vacc ine, unspecified formulation Ortega NILL [facility] 07-12-2014 influenza virus vacc ine, unspecified formulation Ortega NILL [facility] 08-07-2013 influenza virus vacc ine, unspecified formulation Ortega NILL [facility] Payers Date Payer Category Payer Medicare [id number] 2023 Self-pay [id number] 2023 Managed Care HMO (unspecified) AETZENAIDA AETNA [id number] 2023-Present [address] [place] [address] HMO [id number]. [id number] 2022 Private Health Insurance 2007 Medicare [id number]. [id number]. [id number] 1959 Medicare [id number] 1959 Private Health Insurance [facility] [id number] 1945 Unknown [id number] 2.16.840.1.458892.3.579.2. 647 1947 Unknown [id number] 2.16.840.1.617259.3.579.2. 593 1947 Unknown [id number] 2.16.840.1.543461.3.579.2. 593 1947 Unknown [id number] 2.16.840.1.685300.3.579.2. 593 1947 Unknown [id number] 2.16.840.1.142957.3.579.2. 593 1947 Unknown [id number] 2.16.840.1.812718.3.579.2. 593 1947 Unknown [id number] 2.16.840.1.780474.3.579.2. 593 1947 Unknown [id number] 2.16.840.1.494159.3.579.2. 593 1947 Unknown [id number] 2.16.840.1.362707.3.579.2. 593 1947 Unknown [id number] 2.16.840.1.787334.3.579.2. 593 1947 Unknown [id number] 2.16.840.1.143937.3.579.2. 593 1947 Unknown [id number] 2.16.840.1.566431.3.579.2. 593 1947 Unknown [id number] 2.16.840.1.432695.3.579.2. 593 1947 Unknown [id number] 2.16.840.1.607519.3.579.2. 593 1947 Unknown [id number] 2.16.840.1.337705.3.579.2. 593 1947 Unknown [id number] 2.16.840.1.803141.3.579.2. 593 1947 Unknown [id number] 2.16.840.1.152466.3.579.2. 593 1947 Unknown [id number] 2.16.840.1.231866.3.579.2. 593 1947 Unknown [id number] 2.16.840.1.026497.3.579.2. 593 1947 Unknown [id number] 2.16.840.1.191294.3.579.2. 593 1947 Unknown [id number] 2.840.1.805421.3.579.2. 593 1947 Unknown [id number] 2.16840.1.399075.3.579.2. 593 1947 Unknown [id number] 2.840.1.920379.3.579.2. 593 1947 Unknown [id number] 2.16.840.1.945440.3.579.2. 593 1947 Unknown [id number] 2.16.840.1.671243.3.579.2. 593 1947 Unknown [id number] 2.16.840.1.799274.3.579.2. 593 1947 Unknown [id number] 2.16840.1.224441.3.579.2. 593 1947 Unknown [id number] 2.16.840.1.508065.3.579.2. 727 1947 Unknown [id number] 2.16.840.1.651574.3.579.2. 727 1947 Unknown [id number] 2.16.840.1.431563.3.579.2. 196 1947 Unknown [id number] 2.16.840.1.005020.3.579.2. 196 1947 Unknown [id number] 2.16.840.1.535335.3.579.2. 196 1947 Unknown [id number] 2.16.840.1.748693.3.579.2. 196 1947 Unknown [id number] 2.16.840.1.307844.3.579.2. 1259 1947 Unknown [id number] 2.16.840.1.066063.3.579.2. 1259 1947 Unknown [id number] 2.840.1.738678.3.579.2. 125 1947 Unknown [id number] 2.16840.1.850426.3.579.2. 1259 1947 Unknown [id number] 2.16.840.1.815644.3.579.2. 125 1947 Unknown [id number] 2.16840.1.211996.3.579.2. 1259 1947 Unknown [id number] 2.840.1.421577.3.579.2. 1259 Medicare Medicare Outpatient [id number] 1A [id number] Unknown [place] [id number] Unknown [id number] 2.16.840.1.806252.3.579.2. 531 Unknown [id number] 2.16.840.1.886279.3.579.2. 531 Unknown [id number] 2.16840.1.282196.3.579.2. 531 Unknown [id number] 2.16.840.1.239692.3.579.2. 531 Unknown [id number] 2.16.840.1.109971.3.579.2. 531 Social History Date Type Detail Facility Start: 08-30-2023 End: 09-06-2023 Sex Assigned At [facility] Start: 1945 Sex Assigned At Female F [facility] Start: 08-18-2023 End: 03-02-2024 Tobacco smoking status [...] Healthcare How often do you att end religion or mandaeism services? Patient refused [facility] Do you belong to any clubs or organizations such as religion groups, unions, fraternal or athletic groups, or [...] [facility] Start: 04-27-2013 Tobacco smoking stat us MSIS Never smoked tobacco (finding) [facility] Functional Status Date Assessment Result Facility 03-02-2024 Functional Status N/A [facility] [place] Clinical Notes 08-26-2021 to 03-02-2024 Note Date & Type Note Facility 03-02-2024 Note Chief Complaint consultation for anemia HPI Staff 78 year old female presents on consultation from [facility] [place] [facility] for anemia. Labs completed yesterday with [...] PSVT, spinal stenosis, cervical radiculopathy; referred from [facility] for anemia, low iron, and [...] (paroxysmal supraventricular t (more content not included)... [facility] Comment on above: Result Comment: Elec tronically [...] All other systems reviewed and are negative. [facility] 01-17-2024 Note Cardiovascular Medic [facility] SUBJECTIVE Chief Complaint Patient presents with Atrial Fibrillation Breann Starks is a 78 y.o. female here for follow-up. HPI PMHx: A-fib, atrial tachycardia s/p ablation 2005, sick sinus syndrome s/p PPM 10/2020 dual-chamber [employer], COPD, mild CAD s/p cardiac cath 2010, SHAWANDA noncompliant with mask, and obesity. She has been doing well since last seen. No significant changes. Denies c/o CP, dyspnea, orthopnea, PND, LE edema, dizziness/LH, palpitations, syncope. Patient Active Problem List Diagnosis Disorder of bursae of shoulder region Chronic obstructive lung disease (CMS/HCC) Atherosclerosis of [place] coronary artery of [place] heart without angina pectoris Diaphragmatic hernia Edema [...] Final Monocytes Absolu (more content not included)... [facility] 07-05-2023 Note [facility] Consult Note [...] sick sinus syndrome s/p PPM 10/2020 dual-chamber [employer], COPD, mild CAD s/p cardiac cath [...] could not afford DOAC. Patient underwent dual-chamber [employer] pacemaker placement on 10/13/2020. On subsequent [...] on that day 04/05/[address] Constantin Ulola atrial tachycardia with a rate at 140 [...] both knees Hypocalcemi (more content not included)... [facility] 10-07-2021 Evaluation note Encounter Date Diagnosis Assessment Notes Sep, LOJA (nonalcoholic steatohepatitis ) (ICD-10 - K75.81) OBTAIN FIBROSURE RESULTS FROM [facility] REASSURANCE ON RESULTS PT ENCOURAGED WEIGHT LOSS RTO ONE YEAR WITH LABS ANNUALLY Sep, Unspecified cirrhosis of liver (ICD-10 - K74.60) [facility] Other 12-15-2021 Evaluation note* Encounter Date Diagnosis Assessment Notes Treatment Notes Treatment Clinical Notes Aug, Nonalcoholic steatohepatitis (LOJA) (ICD-10 - K75.81) RTO 6-8 WEEKS Aug, Unspecified cirrhosi s of liver (ICD-10 - K74.60) Aug, Morbid obesity (ICD- 10 - E66.01) [facility] Other Evaluation + Plan note No data available for this section [facility] [place] Evaluation noteNo assessment information available [facility] Work Phone: History general Narrative - Reported* [...] Surgical History pacemaker Hospitalization History see above [facility] Other Hospital Discharge instructions No data available for this section [facility] [place] Progress note No data available for this section [facility] [place] Summary Purpose Family History No Family History [...] mri clearance lumbar radiculpathy Chief Complaint m25.512 Chief Complaint m25.512 M25.512 Additional Source Comments INFORMATION SOURCE (unrecogn ized section and content) DATE CREATED AUTHOR 10/23/2021 [facility] DATE CREATED AUTHOR AUTHOR'S ORGANIZ ATION 01/22/2022 [facility] DATE CREATED AUTHOR AUTHOR'S ORGANIZ ATION 02/18/2023 [facility] DATE CREATED AUTHOR AUTHOR'S ORGANIZ ATION 03/08/2024 [facility] DATE CREATED AUTHOR AUTHOR'S ORGANIZ ATION 03/11/2024 [facility] DATE CREATED AUTHOR AUTHOR'S ORGANIZ ATION 04/07/2024 [facility] DATE CREATED AUTHOR AUTHOR'S ORGANIZ ATION 04/12/2024 [facility] DATE CREATED AUTHOR AUTHOR'S ORGANIZ ATION 04/13/2024 [facility] EPIC REASON FOR VISIT [...] October 11, 2023 End: October 11, 2023 [employer] Relationship Specialty Start Date End Date Shaikh Denis MD PCP - General Internal Medicine 04/05/23 Team Status: Inactive Member Role Status Dates Shaikh Cira MD Primary Care Provider Active Start: March 29, 2024 End: March 29, 2024 James Jones DO Attending Provider Active S tart: March 29, 2024 End: March 29, 2024 Team Status: Inactive Member Role Status Dates Shaikh Cira MD Primary Care Provider Active Start: April 10, 2024 End: April 10, 2024 James Jones DO Attending Provider Active S tart: April 10, 2024 End: April 10, 2024 Goals (unrecognized section and content) Goals [...] BE BASED ON THE PRIMARY CLINICAL RECORDS. [facility] [employer] provides no warranty or guarantee of the accuracy or completeness of information in this document.
[2024-04-16 08:37] VITALS: BP 156/76; PULSE 74; TEMP 36; O2SAT 96
[2024-04-16] MEDS: BUPIVACAINE HCL 0.25% PF 25 MG/10 ML VIAL 5 ML INJ (09:25)
[2024-04-16] MEDS: LIDOCAINE HCL 2% 400 MG/20 ML MDV 15 ML INJ (09:26)
[2024-04-16] MEDS: IOHEXOL 240 MG/ML - 10 ML VIAL INJ (09:26)
[2024-04-16] MEDS: TRIAMCINOLONE ACETONIDE 40 MG/ML VIAL INJ (09:26)
--- NOTE | 2024-04-16 09:26 | P.ON_ITS ---
Date of procedure: 04/16/24 Pre-op diagnosis: Left sacroiliitis Post-op diagnosis: same as pre-op Procedure: Procedure: Left sacroiliac joint injection Medications: Bupivacaine 0.25% 3cc, kenalog 40mg After informed consent was obtained, the patient was brought to the medical pro cedure unit and placed in the prone position, when a timeout was completed verifying correct patient, procedure, site, positioning, implant, and/or special equipment.? The skin overlying the area was prepped and draped in standard sterile fashion using alcohol.? A 25-gauge needle was inserted towards the left sacroiliac joint under direct fluoroscopic imaging.? Needle tip was advanced until the joint was encountered.? We instilled a total of 2 mL of solution.? Postoperatively needles were removed.? The patient tolerated the procedure well without complication.? The patient reported reduction in pain symptoms postoperatively. Anesthesia: Local Surgeon: Miguel Murphy Pathology: none sent Condition: stable Disposition: no change
[2024-04-16 09:27] VITALS: BP 141/79; BP 173/79; PULSE 74; PULSE 75; O2SAT 96; O2SAT 97
== END 2024-04-16 09:31 | disposition home or self-care (01) ==
LOC: SURGOUT 08:24
PROVIDERS: PCP Internal Medicine; Visit Provider Anesthesiology
DX: M46.1 Sacroiliitis, not elsewhere classified (principal)
CPT/HCPCS: 27096; J0665; J3301; Q9966

== ENCOUNTER 2024-04-25 12:49 | Outpatient (OUT) | payer MEDICARE, SELFPAY ==
--- OUTSIDE RECORDS SUMMARY | 2024-04-25 12:58 | XMS_ITS | CCD ---
Author Organization [facility] CliniSywy Care Team Providers Care Embroidery Worker Name Role Phone ZANE MCGUIRE Admitting Unavailable YANCY MAHAN Referring Unavailable LUISANA FISHER Primary Care Unavailable ZANE MCGUIRE Attending Unavailable YANCY MAHAN Surgeon Unavailable [place] Procedure Practitioner Unavailab Hong Adler Unavailable FISHER [...] ., DR LUISANA Herbert Primary Care Unavailable ZIEBDR PAULA REBOLLEDO Consulting Unavailable SAMSA ., LUIZ Admitting Unavailable [...] Admitting Unavailable RIVER ., KAYLEY Attending Unavailable JUPITER, DR HONG Morgan Consulting Unavailable FISHER ., [...] Unavailable SHAIKH Kymberly DENIS Attending Unavailable SHAIKH DENIS Admitting Unavailable SAMSA ., LUIZ Admitting Unavailable SAMSA ., LUIZ Attending Unavailable SAMSA ., LUIZ Consulting Unavailable FISHER ., DR LUISANA Herbert Primary Care Unavailable THANG Clement Attending Provider [phone] MD Cira [facility] Primary Care Provider THANG Clement Attending Provider Cira CUBA [facility] Provider [phone] YANCY MAHAN Referring Unavailable YANCY MAHAN Attending Unavailable YANCY MAHAN Referring Unavailable NICANOR CANNON Attending Unavailable Ortega ALEXANDER Attending Unavailable SERGE DENISIKH Referring Unavailable Ortega ALEXANDER Attending Unavailable MD Cira [facility] Provider DO James Jones Attending Provider Katherine CUBA, Starlarius Sainz Attending Unavailable Githeresarajuliette CUBA, Andrius Vrenee Attending Unavailable Giedraitis , Andrius Vrenee Attending Unavailable Giedraitis , Andrius Alistair Attending Unavailable Cira [facility] Care Unavailable James Jones Admitting Unavailable James Jones Attending Unavailable Dominiquemsalysa [facility] Care Unavailable Claire Clement Admitting Unavailable Claire Clement Attending Unavailable Dominiquemsalysa [facility] Care Unavailable Claire Clement Admitting Unavailable Claire Clement Attending Unavailable Dominiquemsalysa [facility] Care Unavailable Kayley Reeder Admitting Unavailable Kayley Reeder Attending Unavailable James Jones Attending Unavailable Shaikh Denis Primary Care Unavailable James Jones Admitting Unavailable CIRA, Attending Unavailable CIRA, Attending Unavailable FASILVANA, Attending Unavailable FASILVANA, Attending Unavailable CIRA, Attending Unavailable CIRA, Attending Unavailable CIRA, Attending Unavailable EPDRO PABLO BARROW Attending Unavailable PEDRO PABLO BARROW Referring Unavailable Allergies Allergy Classification Reported Allergen(s) Allergy Type Date of Onset Reaction(s) Facility NSAIDs (1 source) meloxicam; Translations: [Mobic] Drug Allergy [facility] Repository Unclassified (1 source) No Known Medication Allergies; Translations: [No Known Medication Allergies] Propensity to adverse reactions (disorder) [facility] Repository (1 source) novacaine; Translations: [novacaine] Propensity to adverse reactions (disorder) 2 [facility] Repository (2 sources) NSAIDs Propensity to adverse reactions HEART ISSUES [facility] Other (3 sources) Adhesive agent; Translations: [adhesive] Allergy to substance 4 Unknown Reaction [facility] (3 sources) NSAIDS (Non-Steroidal Anti-Inflamma; Translations: [NSAIDS (Non-Steroidal Anti-Inflamma] Allergy to substance 4 HEART ISSUES [facility] Medications Current Medications Medication Drug Class(es) [...] Centrum Silver (2 sources) Centrum Silver O davyly *please review for potential _update for e-prescription [...] 1:00am take 1 capsule by mo [facility] every twenty-four hours Omeprazole 40 MG 1 [...] 1 tablet by mouth in the mo [facility] spironolactone (Aldactone) 25 MG tablet Take 25 [...] 02/14/2024 Active take 1 capsule by mo ut every twenty-four hours Verapamil HCl ER 360 [...] Daily, # 90 tab(s), Refills(s) 0, Pharmacy: [facility]/pharmacy #[id number], 141, cm, 01/11/23 10:30:00 [...] [Centrilobular emphysema] Onset: 2 Chronic Conduction disorders (6 sources) Presence of cardiac pacemaker; Translations: [Sinus node dysfunction] Onset: 1 03-01-2024 Chronic Congestive heart failure; nonhypertensive (2 sources) Chronic diastolic (congestive) heart failure; Translations: [Congestive heart failure] Onset: 3 03-01-2024 Chronic Coronary atherosclerosis and other heart disease (3 sources) Atherosclerotic heart disease of [place] coronary artery without angina pectoris; Translations: [Coronary [...] Onset: 3 Episodic Other aftercare (1 source) 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 She would like to start her on lasix 40mg daily, with BMP in 1 week. She spoke on the phone to Dr. Mahan regarding her echo. Per Dr. Mahan, patient is ok to proceed with EGD/colonoscopy. Spoke with patient and made her aware. She said she had visit with Dr. Dneis on 02/26 for swelling and he started her on lasix 40mg- with instructions to take 2 of them for the rest of the week and then go down to once daily. Bre then decided to have her take 40mg of lasix twice daily. Patient informed. New RX for lasix sent to her pharmacy. BMP order faxed to [facility]. Breann verbalized understanding. Normal [facility] Consent for Procedure/Surger yon 03-05-2024 Consent for Procedure/Surgery [id number] #1.00TIFF [facility] Ambulatory Visit Summaryon 0 03-02-2024 Ambulatory Visit Summary BREANN STARKS :1945 Visit Date:03/02/2024 Ambulatory Visit Instructions Your Care Team Attending Physician - CATHERINE CUBA, Ortega Bishop Primary Care Physician - Cate JUÁREZ, Barbara Lemus Referring Physician - CIRA CUBA, This Is [...] you for choosing us for your care. [facility] ED Note-Physicianon 03-02-20 24 ED Note-Physician [id number]# 1.00TIFF [facility] Insurance Correspondenceon 0 03-02-2024 Insurance Correspondence [id number] 7#1.00TIFF [facility] Lab Reportson 03-02-2024 Lab Reports [id number] #1.00TIFF [facility] 36on 01-25-2024 36 Patient called stating ever since her device was adjusted last month she's had this weird feeling in her throat. I called Sony Asif from [employer] and he told me this feeling she's having should not be from her device. Patient informed. I suggested she see PCP for this. She verbalized understanding. Normal [facility] Office Visiton 01-17-2024 Follow-up visit [id number] Breann Starks 1945 F Date Provider Department Center 01/17/2024 NICANOR REGAN Darrell Tristian Family History Adopted: Yes Family history unknown: Yes Family Status - Relation Status Age at Mother Father Level of Service:97606 [place] OFFICE/OUTPATIENT ESTABLISHED MOD MDM 30 MIN Reason for Visit and Comments: Atrial Fibrillation [80] Normal [facility] XR lumbar spine 6V w bending on 11-16-2023 XR lumbar spine 6V w bending [facility] [address] [place] [address] [place] [address] XRay Report Signed Patient: Breann Starks MR#: [id number] : 1945 Acct:[id number] Age/Sex: 77 / F ADM Date: 11/16/23 Loc: XD Room: Type: [facility] Attending Dr: Kayley DESIR Copies to: THANG [...] Benton Jr., D.O.11/16/2023 4:37 PM Dictation Location: [place] [address] Transcribed By: [facility] 11/16/23 1637 Dictated By: Francisco J Benton Jr, DO 11/16/23 1636 Signed By: 11/16/23 1637 Normal [facility] MR lumbar spine wo [facility] MR lumbar spine wo con [facility] [address] [place] [address] [place] [address] XRay Report Signed Patient: Breann Starks MR#: [id number] : 1945 Acct:[id number] Age/Sex: 77 / F ADM Date: 10/11/23 Loc: MR Room: Type: [facility] Attending Dr: Claire DESIR Copies to: THANG Porter Ordering Provider: THANG Porter Date of Service: 10/11/23 MR/MR lumbar spine wo con: LUMBAR RADICULPATHY ([id number]) XR/XR pre/post mri xray: LUMBAR RADICULPATHY CLINICAL [...] Eleanor Reece M.D.10/11/2023 4:10 PM Dictation Location: [facility]12 Transcribed By: [facility] 10/11/23 1610 Dictated By: Eleanor Reece MD 10/11/23 1133 Signed By: 10/11/23 1610 Normal [facility] Office Visiton 07-05-2023 Follow-up visit [id number] Breann Starks 1945 F Date Provider Department Center 07/05/2023 YANCY IVERSON [facility] Family History Adopted: Yes Family history unknown: Yes Family Status - Relation Status Age at Mother Father Level of Service:19111 [place] OFFICE/OUTPATIENT ESTABLISHED LOW MDM 20-29 MIN Normal [facility] XR LSPINE W_OBLS AND FLEX_EX Ton [...] by: PAULA DELGADO Date: 2023-01-31 11:[address] [facility] LIPID PROFILEon 12-16-2022 CHOL-HDL RATIO NORM SEE BELOW Normal [facility] Comment on above: Result Comment: 3.3 - 4.4 LOW RISK 4.4 - 7.1 AVERAGE RISK 7.1 - 11.0 MODERATE RISK >11.0 HIGH RISK Performed By: #### L IPID ####[facility] [address] [place], [place] [address]Ax. Erasmo Smith Cholesterol [Mass/Vol] 105 mg/dL Normal <=200 [facility] Comment on above: Performed By: #### L IPID ####[facility] [address] [place], [place] [address]Dz. Erasmo Smith Cholesterol in HDL [Mass/Vol] 48 mg/dL Normal 40-[address] [facility] Comment on above: Performed By: #### L IPID ####[facility] [address] [place], [place] [address]Yy. Erasmo Smith Cholesterol in LDL [Mass/Vol] 48.2 mg/dL Normal [facility] Comment on above: Performed By: #### L IPID ####[facility] [address] [place] [id number]. Erasmo Smith Cholesterol.total/Chol esterol in HDL [Mass ratio] 2.2 {ratio} Normal [facility] Comment on above: Performed By: #### L IPID ####[facility] [address] [place], [place] [address]Hm. Erasmo Smith HDL NORMAL > or = 60 mg/dl - LOW CARDIOVASCULAR RISK <40 mg/dl - HIGH CARDIOVASCULAR RISK Normal [facility] Comment on above: Performed By: #### L IPID ####[facility] [address] [place], [place] [address]Zc. Erasmo Smith LDL CALC NORMAL SEE BELOW Normal [facility] Comment on above: Result Comment: <100 mg/dl OPTIMAL 100 - 129 mg/dl NEAR OR ABOVE OPTIMAL 130 - 159 mg/dl BORDERLINE HIGH 160 - 189 mg/dl HIGH >190 mg/dl VERY HIGH Performed By: #### L IPID ####[facility] [address] [place] [id number]. Erasmo Smith Triglyceride [Mass/Vol] 44 mg/dL Normal <=150 [facility] Comment on above: Performed By: #### L IPID ####[facility] [address] [place], [place] [address]Ow. Erasmo Smith VLDL CALC 8.8 mg/dL Normal [facility] Comment on above: Performed By: #### L IPID ####[facility] [address] [place] [address]Dr. Erasmo Smith CULTURE BLOODon 12-04-2022 Microscopic examination [...] F Trimethoprim/Sulfame thoxazole <=20 S F Normal [facility] Comment on above: Performed By: #### B LDCX1 ####[facility] [address] [place], [place] [address]Dr. Erasmo Smith BNPon 12-03-2022 Natriuretic peptide B (Bld) [Mass/Vol] 413.0 pg/mL Normal <=1,800.[address] [facility] Comment on above: Performed By: #### B COORDINATE MEASURING MACHINE TECHNICIAN #### [facility] [address] [place] [address] [address] Erasmo Smith CBC AUTO DIFFon 12-03-2022 BASO # 0.0 103/ul Normal 0.0-0.[address] [facility] Comment on above: Performed By: #### C BC ####[facility] [address] [place] [address]DrMeena Smith Basophils/100 WBC (Bld) 0.2 % Normal 0.2-2.0 [facility] Comment on above: Performed By: #### C BC ####[facility] [address] [place], [place] [address]DrMeena Smith EO # 0.4 103/ul Normal 0.0-0.7 [facility] Comment on above: Performed By: #### C BC ####[facility] [address] [place] [id number]. Erasmo Smith Eosinophils/100 WBC (Bld) 2.1 % Normal 0.9-7.[address] [facility] Comment on above: Performed By: #### C BC ####[facility] [address] [place] [address]Dr. Erasmo Smith Erythrocyte distribution width (RBC) [Ratio] 17.2 % Critically high 11.0-15.[address] [facility] Comment on above: Performed By: #### C BC ####[facility] [address] [place] [address]Dr. Erasmo Smith Hematocrit (Bld) [Volume fraction] 29.2 % Critically low 36.0-48.[address] [facility] Comment on above: Performed By: #### C BC ####[facility] [address] [place], [place] [address]Dr. Erasmo Smith Hemoglobin (Bld) [Mass/Vol] 9.5 g/dL Critically low 12.0-16.[address] [facility] Comment on above: Performed By: #### C BC ####[facility] [address] [place], [place] [address]Dr. Erasmo Smith IG # 0.13 10e3/ul Critically high 0.00-0.03 [facility] Comment on above: Performed By: #### C BC ####[facility] [address] [place], [place] [address]Dr. Erasmo Smith IG % 0.8 % Critically high 0.0-0.5 [facility] Comment on above: Performed By: #### C BC ####[facility] [address] [place] [address]Dr. Erasmo Smith LYMPH # 1.8 103/ul Normal 1.2-3.8 [facility] Comment on above: Performed By: #### C BC ####[facility] [address] [place], [place] [address]Dr. Erasmo Smith Lymphocytes/100 WBC (Bld) 10.3 % Critically low 20.5-60.[address] [facility] Comment on above: Performed By: #### C BC ####[facility] [address] [place] [id number]. Erasmo Smith MANUAL DIFF REQ NO Normal [facility] Comment on above: Performed By: #### C BC ####[facility] [address] [place] [id number]. Erasmo Smith MCH (RBC) [Entitic mass] 25.7 pg Critically low 26.7-34.[address] [facility] Comment on above: Performed By: #### C BC ####[facility] [address] [place] [id number]. Erasmo Smith MCHC (RBC) [Mass/Vol] 32.5 g/dL Normal 29.9-35.2 [facility] Comment on above: Performed By: #### C BC ####[facility] [address] [place] [address]Dr. Erasmo Smith MCV (RBC) [Entitic vol] 79.1 fL Critically low 81.0-99.[address] [facility] Comment on above: Performed By: #### C BC ####[facility] [address] [place] [id number]. Erasmo Smith MONO # 1.5 103/ul Critically high 0.3-0.8 [facility] Comment on above: Performed By: #### C BC ####[facility] [address] [place] [id number]. Erasmo Smith Monocytes/100 WBC (Bld) 8.7 % Normal 1.7-12.0 [facility] Comment on above: Performed By: #### C BC ####[facility] [address] [place] [id number]. Erasmo Smith NEUT # 13.4 103/ul Critically high 1.4-6.5 [facility] Comment on above: Performed By: #### C BC ####[facility] [address] [place] [id number]. Erasmo Smith Neutrophils/100 WBC (Bld) 77.9 % Critically high 43.0-75.[address] [facility] Comment on above: Performed By: #### C BC ####[facility] [address] [place] [id number] Smith Platelet mean volume (Bld) [Entitic vol] 9.3 fL Critically low 9.5-13.[address] [facility] Comment on above: Performed By: #### C BC ####[facility] [address] [place] [id number] Smith PLT 205 103/ul Normal 150-[address] [facility] Comment on above: Performed By: #### C BC ####[facility] [address] [place] [id number] Smith RBC 3.69 106/ul Critically low 4.20-5.40 [facility] Comment on above: Performed By: #### C BC ####[facility] [address] [place] [id number] Smith WBC 17.2 103/ul Critically high 4.0-11.0 [facility] Comment on above: Performed By: #### C BC ####[facility] [address] [place] [id number]. Erasmo Smith MAGNESIUMon 12-03-2022 Magnesium [Mass/Vol] 1.9 mg/dL Normal 1.8-2.[address] [facility] Comment on above: Performed By: #### B COORDINATE MEASURING MACHINE TECHNICIAN #### [facility] [address] [place] [address] [address] Erasmo Smith PROF 14(COMP METB)on 023 Albumin [Mass/Vol] 2.6 g/dL Critically low 3.4-5.0 [facility] Comment on above: Performed By: #### B COORDINATE MEASURING MACHINE TECHNICIAN #### [facility] [address] [place] [address] [address] Erasmo Smith Albumin/Globulin [Mass ratio] 0.6 {ratio} Normal [facility] Comment on above: Performed By: #### B COORDINATE MEASURING MACHINE TECHNICIAN #### [facility] [address] [place] [address] [address] Erasmo Smith ALP [Catalytic activity/Vol] 123 U/L Critically high 46-[address] [facility] Comment on above: Performed By: #### B COORDINATE MEASURING MACHINE TECHNICIAN #### [facility] [address] [place] [address] [address] Erasmo Smith ALT [Catalytic activity/Vol] 28 U/L Normal 14-[address] [facility] Comment on above: Performed By: #### B COORDINATE MEASURING MACHINE TECHNICIAN #### [facility] [address] [place] [address] [address] Erasmo Smith Anion gap [Moles/Vol] 9.4 mmol/L Normal [facility] Comment on above: Performed By: #### B COORDINATE MEASURING MACHINE TECHNICIAN #### [facility] [address] [place] [address] [address] Erasmo Smith AST [Catalytic activity/Vol] 21 U/L Normal 15-[address] [facility] Comment on above: Performed By: #### B COORDINATE MEASURING MACHINE TECHNICIAN #### [facility] [address] [place] [address] Dr. Erasmo Smith Bilirubin [Mass/Vol] 0.3 mg/dL Normal 0.2-1.[address] [facility] Comment on above: Performed By: #### B COORDINATE MEASURING MACHINE TECHNICIAN #### [facility] [address] [place] [address] [address] Erasmo Smith Calcium [Mass/Vol] 8.3 mg/dL Critically low 8.5-10.1 [facility] Comment on above: Performed By: #### B COORDINATE MEASURING MACHINE TECHNICIAN #### [facility] [address] [place] [address] [address] Erasmo Smith Chloride [Moles/Vol] 105 mmol/L Normal 98-107 [facility] Comment on above: Performed By: #### B COORDINATE MEASURING MACHINE TECHNICIAN #### [facility] [address] [place] [address] [address] Erasmo Smith CO2 [Moles/Vol] 27.1 mmol/L Normal 21.0-32.0 [facility] Comment on above: Performed By: #### B COORDINATE MEASURING MACHINE TECHNICIAN #### [facility] [address] [place] [address] [address] Erasmo Smith Creatinine [Mass/Vol] 0.55 mg/dL Normal 0.55-1.[address] [facility] Comment on above: Performed By: #### B COORDINATE MEASURING MACHINE TECHNICIAN #### [facility] [address] [place] [address] [address] Erasmo Smith EGFR-AF TURKISH >60 Normal >=60 [facility] Comment on above: Performed By: #### B COORDINATE MEASURING MACHINE TECHNICIAN #### [facility] [address] [place] [address] [address] Erasmo Smith EGFR-NON AF TURKISH >60 Normal >=[address] [facility] Comment on above: Performed By: #### B COORDINATE MEASURING MACHINE TECHNICIAN #### [facility] [address] [place] [address] [address] Erasmo Smith Globulin (S) [Mass/Vol] 4.0 g/dL Normal [facility] Comment on above: Performed By: #### B COORDINATE MEASURING MACHINE TECHNICIAN #### [facility] [address] [place] [address] Dr. Erasmo Smith Glucose [Mass/Vol] 132 mg/dL Critically high 74-106 [facility] Comment on above: Performed By: #### B COORDINATE MEASURING MACHINE TECHNICIAN #### [facility] [address] [place] [address] [address] Erasmo Smith Potassium [Moles/Vol] 3.5 mmol/L Normal 3.5-5.[address] [facility] Comment on above: Performed By: #### B COORDINATE MEASURING MACHINE TECHNICIAN #### [facility] [address] [place] [address] Dr. Erasmo Smith Protein [Mass/Vol] 6.6 g/dL Normal 6.4-8.2 [facility] Comment on above: Performed By: #### B COORDINATE MEASURING MACHINE TECHNICIAN #### [facility] [address] [place] [address] [address] Erasmo Smith Sodium [Moles/Vol] 138 mmol/L Normal 136-145 [facility] [place] Comment on above: Performed By: #### B COORDINATE MEASURING MACHINE TECHNICIAN #### [facility] [address] [place] [address] [address] Erasmo Smith Urea nitrogen [Mass/Vol] 24.0 mg/dL Critically high 7.0-18.[address] [facility] Comment on above: Performed By: #### B COORDINATE MEASURING MACHINE TECHNICIAN #### [facility] [address] [place] [address] [address] Erasmo Smith Urea nitrogen/Creatinine [Mass ratio] 43.6 mg/mg Normal [facility] Comment on above: Performed By: #### B COORDINATE MEASURING MACHINE TECHNICIAN #### [facility] [address] [place] [address] [address] Erasmo Smith PROTIMEon 12-03-2022 INR Coag (PPP) [Relative time] 4.41 {INR} Critically high [facility] Comment on above: Performed By: #### C MREP #### [facility] [address] [place] [address] Dr. Erasmo Smith INR GUIDELINES SEE BELOW Normal [facility] Comment on above: Result Comment: ABNER RED INR: 2.0 - 3.0 CONDITIONS NOT LISTED BELOW 2.5 - 3.5 FOR PROSTHETIC HEART VALVE REPLACEMENT 2.5 - 3.5 RECURRENT THROMBOSIS Performed By: #### C MREP #### [facility] [address] [place] [address] Dr. Erasmo Smith PT Coag (PPP) [Time] 43.0 s Critically high 9.0-11.[address] [facility] Comment on above: Performed By: #### C MREP #### [facility] [address] [place] [address] [address] Erasmo Smith BLOOD CULTURE ID PANELon A. baumannii Not detected Normal NOT DETECTED [facility] Comment on above: Performed By: #### B CID2 ####[facility] [address] [place] [address]DrMeena Smith Bacteriodes fragilis Not detected Normal NOT DETECTED [facility] Comment on above: Performed By: #### B CID2 ####[facility] [address] [place] [id number] Smith BCID CONTROLS PASSED Normal [facility] [place] [facility] Comment on above: Performed By: #### B CID2 ####[facility] [address] [place] [id number] Smith BCIDBTHD BLOOD CULTURE BOTTLE INFORMATION Normal [facility] Comment on above: Performed By: #### B CID2 ####[facility] Bhtnujflzt8766 [place] [id number]. Yiean Smith BCIDHD1 ANTIMICROBIAL RESISTANCE GENES Normal [facility] Comment on above: Performed By: #### B CID2 ####[facility] Pgglckqiir5856 [place] [address]Dr. Yiean Smith BCIDHD2 SEE BELOW Normal [facility] Comment on above: Result Comment: Note : Antimicrobial resitance can occur via multiple mechanisms. A Not Detected result for the [employer] antomicrobial resistance gene assays does not indicate antimicrobial susceptibility. Subculturing is required for species identification and susceptibility testing of isolates. Performed By: #### B CID2 ####[facility] Txkzvgrawe8651 [place] [address]Dr. Yiean Smith BCIDHD3 Positive Normal [facility] Comment on above: Performed By: #### B CID2 ####[facility] Qsavjimbcz[address] [place], [place] [address]Dr. Yiean Smith BCIDHD4 Negative Normal [facility] Comment on above: Performed By: #### B CID2 ####[facility] Axvkipcirn9[address] [place], [place] [address]Dr. Yiean Smith BCIDHD5 YEAST Normal [facility] Comment on above: Performed By: #### B CID2 ####[facility] Jeuleeldly66[address] [place], [place] [address]Dr. Yilan Smith Bottle Set: Set 1 Normal [facility] Comment on above: Performed By: #### B CID2 ####[facility] Gyeooccphx7858 [place] [address]Dr. Yilan Smith Bottle: Anaerobic Normal [facility] Comment on above: Performed By: #### B CID2 ####[facility] Mliskjdhoq7161 [place] [address]Dr. Yilan Smith C. neoformans/gattii Not detected Normal NOT DETECTED [facility] Comment on above: Performed By: #### B CID2 ####[facility] Qrxslfsaue9334 [place] [address]Dr. Yilan Smith Naye albicans Not detected Normal NOT DETECTED [facility] Comment on above: Performed By: #### B CID2 ####[facility] Mfqdqmimim8736 [place] [id number]. Yiean Smith Naye auris Not detected Normal NOT DETECTED [facility] Comment on above: Performed By: #### B CID2 ####[facility] Mjprzvtwwr6184 [place] [address]Dr. Yilan Smith Naye glabrata Not detected Normal NOT DETECTED [facility] Comment on above: Performed By: #### B CID2 ####[facility] Vverjxyask1871 [place] [address]Dr. Yiean Smith Naye Krusei Not detected Normal NOT DETECTED [facility] Comment on above: Performed By: #### B CID2 ####[facility] Wpoxmvdzmr4164 [place] [address]Dr. Yiean Smith Naye Parapsilosis Not detected Normal NOT DETECTED [facility] Comment on above: Performed By: #### B CID2 ####[facility] Prhigxeyef3532 [place] [address]Dr. Yiean Smith Naye Tropicalis Not detected Normal NOT DETECTED [facility] Comment on above: Performed By: #### B CID2 ####[facility] Wgewlirnhp6232 [place] [address]Dr. Erasmo Smith CTX-M Resistant Gene Not Applicable Normal NOT DETECTE D [facility] Comment on above: Performed By: #### B CID2 ####[facility] Mvqyabzojn1116 [place] [address]Dr. Yiean Smith E. Cloacae complex Not detected Normal NOT DETECTED [facility] Comment on above: Performed By: #### B CID2 ####[facility] Hemoquvanc0660 [place] [address]Dr. Yilan Smith E. faecalis Not detected Normal NOT DETECTED [facility] Comment on above: Performed By: #### B CID2 ####[facility] Pqcfpeodfi5705 [place] [address]Dr. Yiean Smith E. faecium Not detected Normal NOT DETECTED [facility] Comment on above: Performed By: #### B CID2 ####[facility] Zlmntbfokg[address] [place], [place] [address]Dr. Erasmo Smith Enterobacteriaceae Detected Critically abnormal NOT DETECTED [facility] Comment on above: Performed By: #### B CID2 ####[facility] Gaqnewkugf10[address] [place], [place] [address]Dr. Erasmo Smith Escherichia coli Detected Critically abnormal NOT DETECTED [facility] Comment on above: Performed By: #### B CID2 ####[facility] Pggsyuelpi8129[address] [place], [place] [address]Dr. Erasmo Smith H. influenzae Not detected Normal NOT DETECTED [facility] Comment on above: Performed By: #### B CID2 ####[facility] Hfmyeclslz0095[address] [place], [place] [address]Dr. Erasmo Smith IMP Resistant Gene Not Applicable Normal NOT DETECTED [facility] Comment on above: Performed By: #### B CID2 ####[facility] Qwmraacypv475240 [address] [place], [place] [address]Dr. Erasmo Smith K. oxytoca Not detected Normal NOT DETECTED [facility] Comment on above: Performed By: #### B CID2 ####[facility] Ywvdwxytje877[address] [place], [place] [address]Dr. Erasmo Smith K. pneumoniae Not detected Normal NOT DETECTED [facility] Comment on above: Performed By: #### B CID2 ####[facility] Uxcjnmqsib5437[address] [place], [place] [address]Dr. Erasmo Smith Klebsiella aerogenes Not detected Normal NOT DETECTED [facility] Comment on above: Performed By: #### B CID2 ####[facility] Uffmuurrui8127[address] [place], [place] [address]Dr. Erasmo Smith KPC Resistant Gene Not detected Normal NOT DETECTED [facility] Comment on above: Performed By: #### B CID2 ####[facility] Uvvfpobtme6146[address] [place], [place] [address]Dr. Erasmo Smith List. monocytogenes Not detected Normal NOT DETECTED [facility] Comment on above: Performed By: #### B CID2 ####[facility] Ewrbcajyig4760[address] [place], [place] [address]Dr. Erasmo Smith Mcr-1 Resistant Gene Not Applicable Normal NOT DETECTE D [facility] Comment on above: Performed By: #### B CID2 ####[facility] Ldxtoinyfa1407[address] [place], [place] [address]Dr. Erasmo Smith mecA/C Not Applicable Normal NOT DETECTED [facility] Comment on above: Performed By: #### B CID2 ####[facility] Zfsgkjtazy3860[address] [place], [place] [address]Dr. Erasmo Smith mecA/C MREJ Not Applicable Normal NOT DETECTED [facility] Comment on above: Performed By: #### B CID2 ####[facility] Vefywrpcsj4183[address] [place], [place] [address]Dr. Erasmo Smith N. meningitidis Not detected Normal NOT DETECTED [facility] Comment on above: Performed By: #### B CID2 ####[facility] Injmiyjmre753[address] [place], [place] [address]Dr. Erasmo Smith NDM Resistant Gene Not Applicable Normal NOT DETECTED [facility] Comment on above: Performed By: #### B CID2 ####[facility] Gnvxgqhgio7490[address] [place], [place] [address]Dr. Erasmo Smith Oxa-48-like Not Applicable Normal NOT DETECTED [facility] Comment on above: Performed By: #### B CID2 ####[facility] Wjxqutkiou8590[address] [place], [place] [address]Dr. Erasmo Smith Proteus Not detected Normal NOT DETECTED [facility] Comment on above: Performed By: #### B CID2 ####[facility] Nzslpirpho9105[address] [place], [place] [address]Dr. Erasmo Smith Pseud. aeruginosa Not detected Normal NOT DETECTED [facility] Comment on above: Performed By: #### B CID2 ####[facility] Mjjmrvrsdj355[address] [place], [place] [address]Dr. Erasmo Smith S. maltophilia Not detected Normal NOT DETECTED [facility] Comment on above: Performed By: #### B CID2 ####[facility] Pvqxojmflv0756[address] [place], [place] [address]Dr. Erasmo Smith Salmonella Not detected Normal NOT DETECTED [facility] Comment on above: Performed By: #### B CID2 ####[facility] Ojyyxwubwp8629[address] [place], [place] [address]Dr. Erasmo Smith Seratia marcescens Not detected Normal NOT DETECTED [facility] Comment on above: Performed By: #### B CID2 ####[facility] Qqfywvkpul224[address] [place], [place] [address]Dr. Erasmo Smith Site: l ac Normal [facility] Comment on above: Performed By: #### B CID2 ####[facility] Wmasoyvxpy3143[address] [place], [place] [address]Dr. Heavenean Smith Staph. aureus Not detected Normal NOT DETECTED [facility] Comment on above: Performed By: #### B CID2 ####[facility] Zluimczqwv1279[address] [place], [place] [address]Dr. Heavenean Smith Staph. epidermidis Not detected Normal NOT DETECTED [facility] Comment on above: Performed By: #### B CID2 ####[facility] Ntyvqnzrwu4460[address] [place], [place] [address]Dr. Erasmo Luis Staph. lugdunensis Not detected Normal NOT DETECTED [facility] Comment on above: Performed By: #### B CID2 ####[facility] Dqgakiipan3784[address] [place], [place] [address]Dr. Erasmo Smith Staphylococcus Not detected Normal NOT DETECTED [facility] Comment on above: Performed By: #### B CID2 ####[facility] Twddumbasj577[address] [place], [place] [address]Dr. Erasmo Smith Strep. agalactiae Not detected Normal NOT DETECTED [facility] Comment on above: Performed By: #### B CID2 ####[facility] Nohcyettmk744[address] [place], [place] [address]Dr. Erasmo Smith Strep. pneumoniae Not detected Normal NOT DETECTED [facility] Comment on above: Performed By: #### B CID2 ####[facility] Ujlywvcibc7511[address] [place], [place] [address]Dr. Erasmo Smith Strep. pyogenes Not detected Normal NOT DETECTED [facility] Comment on above: Performed By: #### B CID2 ####[facility] Bnipxllbxa3417 [place] [address]Dr. Erasmo Smith Streptococcus Not detected Normal NOT DETECTED [facility] Comment on above: Performed By: #### B CID2 ####[facility] Dyiorxusan5299 [place] [address]Dr. Erasmo Smith Fran/B Resist. Gene Not detected Normal NOT DETECTED [facility] Comment on above: Performed By: #### B CID2 ####[facility] Tfehuhvete2076[address] [place], [place] [address]Dr. Erasmo Smith VIM Resistant Gene Not Applicable Normal NOT DETECTED [facility] Comment on above: Performed By: #### B CID2 ####[facility] Yzqwqoauuc9590[address] [place], [place] [address]Dr. Erasmo Smith BNPon 12-02-2022 Natriuretic peptide B (Bld) [Mass/Vol] 1059.0 pg/mL Normal <=1,800.[address] [facility] Comment on above: Performed By: #### B COORDINATE MEASURING MACHINE TECHNICIAN #### [facility] [address] [place] [address] [address] Erasmo Smith CBC AUTO DIFFon 12-02-2022 BASO # 0.0 103/ul Normal 0.0-0.[address] [facility] Comment on above: Performed By: #### C BC ####[facility] Mcfntsbtfs7353 [place] [address]Dr. Erasmo Smith Basophils/100 WBC (Bld) 0.2 % Normal 0.2-2.0 [facility] Comment on above: Performed By: #### C BC ####[facility] Xntqrlmrxj116[address] [place], [place] [address]DrMeena Smith EO # 0.0 103/ul Normal 0.0-0.7 [facility] Comment on above: Performed By: #### C BC ####[facility] Vmdffgcejy6977 [place] [address]DrMeena Smith Eosinophils/100 WBC (Bld) 0.0 % Critically low 0.9-7.[address] [facility] Comment on above: Performed By: #### C BC ####[facility] Fnijsjmavs0765 [place] [address]Dr. Erasmo Smith Erythrocyte distribution width (RBC) [Ratio] 17.3 % Critically high 11.0-15.[address] [facility] Comment on above: Performed By: #### C BC ####[facility] Yhqvyhioug9320[address] [place], [place] [address]Dr. Erasmo Smith Hematocrit (Bld) [Volume fraction] 31.4 % Critically low 36.0-48.[address] [facility] Comment on above: Performed By: #### C BC ####[facility] Wndcgjdhru7310[address] [place], [place] [address]Dr. Erasmo Smith Hemoglobin (Bld) [Mass/Vol] 10.0 g/dL Critically low 12.0-16.[address] [facility] Comment on above: Performed By: #### C BC ####[facility] Xnwnevipfe1526[address] [place], [place] [address]Dr. Erasmo Smith IG # 0.06 10e3/ul Critically high 0.00-0.03 [facility] Comment on above: Performed By: #### C BC ####[facility] Xaoqiityyi38[address] [place], [place] [address]Dr. Erasmo Smith IG % 0.4 % Normal 0.0-0.[address] [facility] Comment on above: Performed By: #### C BC ####[facility] Oetwjgtgci0845[address] [place], [place] [address]Dr. Erasmo Smith LYMPH # 1.3 103/ul Normal 1.2-3.8 [facility] Comment on above: Performed By: #### C BC ####[facility] Bnuqbwsxfx1060[address] [place], [place] [address]Dr. Erasmo Smith Lymphocytes/100 WBC (Bld) 8.1 % Critically low 20.5-60.[address] [facility] Comment on above: Performed By: #### C BC ####[facility] Ggifooqcms8106[address] [place], [place] [address]Dr. Erasmo Smith MANUAL DIFF REQ NO Normal [facility] Comment on above: Performed By: #### C BC ####[facility] Vdnfsgfizg2006 [place] [id number]. Erasmo Smith MCH (RBC) [Entitic mass] 25.6 pg Critically low 26.7-34.[address] [facility] Comment on above: Performed By: #### C BC ####[facility] Lzzxnfslbz5329 [place] [address]Dr. Erasmo Smith MCHC (RBC) [Mass/Vol] 31.8 g/dL Normal 29.9-35.2 [facility] Comment on above: Performed By: #### C BC ####[facility] Ckpnrcirvq4282 [place] [address]Dr. Erasmo Luis MCV (RBC) [Entitic vol] 80.3 fL Critically low 81.0-99.[address] [facility] Comment on above: Performed By: #### C BC ####[facility] Hgvmxtuplj9019[address] [place], [place] [address]Dr. Erasmo Smith MONO # 0.6 103/ul Normal 0.3-0.8 [facility] Comment on above: Performed By: #### C BC ####[facility] Bhoonecxtc612[address] [place], [place] [address]Dr. Heavenean Smith Monocytes/100 WBC (Bld) 3.7 % Normal 1.7-12.0 [facility] Comment on above: Performed By: #### C BC ####[facility] Flxetkrxwb094[address] [place], [place] [address]Dr. Erasmo Smith NEUT # 14.5 103/ul Critically high 1.4-6.5 [facility] Comment on above: Performed By: #### C BC ####[facility] Skqvunhgoq[address] [place], [place] [address]Dr. Erasmo Smith Neutrophils/100 WBC (Bld) 87.6 % Critically high 43.0-75.0 [facility] Comment on above: Performed By: #### C BC ####[facility] Wrbezhekei05[address] [place], [place] [address]Dr. Erasmo Smith Platelet mean volume (Bld) [Entitic vol] 10.0 fL Normal 9.5-13.[address] [facility] Comment on above: Performed By: #### C BC ####[facility] Cplgtpjjjw1243 [place], [place] [address]Sv. Erasmo Smith PLT 206 103/ul Normal 150-450 [facility] Comment on above: Performed By: #### C BC ####[facility] Moabzwcwsa3738 [place], [place] [address]Wa. Erasmo Smith RBC 3.91 106/ul Critically low 4.20-5.40 [facility] Comment on above: Performed By: #### C BC ####[facility] Zdmrfuunwy5406 [place], [place] [address]Gp. Erasmo Smith WBC 16.5 103/ul Critically high 4.0-11.0 [facility] Comment on above: Performed By: #### C BC ####[facility] Szfrjgukfy0468 [place], [place] [address]Gt. Erasmo Smith ECHOCARDIO M/2D COMPLETEon 0 12-02-2022 ECHOCARDIO M/2D COMPLETE Patient: BREANN STARKS Exam Date: 12/02/2022 : 1945 Gender:F Ordering : KAYLEY HOLMAN . Admission #: [id number] Family : DR LUISANA FISHER . Order #: [id number] CLICK HERE TO VIEW EXAM ECHOCARDIOGRAM REPORT [...] Salazar M.D. on 12/02/2022 at 21:[address] [facility] MAGNESIUMon 12-02-2022 Magnesium [Mass/Vol] 2.0 mg/dL Normal 1.8-2.[address] [facility] Comment on above: Performed By: #### B COORDINATE MEASURING MACHINE TECHNICIAN #### [facility] [address] [place] [address] Dr. Erasmo Smith PROF 14(COMP METB)on 023 Albumin [Mass/Vol] 2.7 g/dL Critically low 3.4-5.0 [facility] Comment on above: Performed By: #### B COORDINATE MEASURING MACHINE TECHNICIAN #### [facility] [address] [place] [address] Dr. Erasmo Smith Albumin/Globulin [Mass ratio] 0.6 {ratio} Normal [facility] Comment on above: Performed By: #### B COORDINATE MEASURING MACHINE TECHNICIAN #### [facility] [address] [place] [address] Dr. Erasmo Smith ALP [Catalytic activity/Vol] 128 U/L Critically high 46-[address] [facility] Comment on above: Performed By: #### B COORDINATE MEASURING MACHINE TECHNICIAN #### [facility] [address] [place] [address] Dr. Erasmo Smith ALT [Catalytic activity/Vol] 34 U/L Normal 14-[address] [facility] Comment on above: Performed By: #### B COORDINATE MEASURING MACHINE TECHNICIAN #### [facility] [address] [place] [address] Dr. Erasmo Smith Anion gap [Moles/Vol] 10.6 mmol/L Normal [facility] Comment on above: Performed By: #### B COORDINATE MEASURING MACHINE TECHNICIAN #### [facility] [address] [place] [address] Dr. Erasmo Smith AST [Catalytic activity/Vol] 27 U/L Normal 15-[address] [facility] Comment on above: Performed By: #### B COORDINATE MEASURING MACHINE TECHNICIAN #### [facility] [address] [place] [address] Dr. Erasmo Smith Bilirubin [Mass/Vol] 0.5 mg/dL Normal 0.2-1.[address] [facility] Comment on above: Performed By: #### B COORDINATE MEASURING MACHINE TECHNICIAN #### [facility] [address] [place] [address] Dr. Erasmo Smith Calcium [Mass/Vol] 8.4 mg/dL Critically low 8.5-10.1 [facility] Comment on above: Performed By: #### B COORDINATE MEASURING MACHINE TECHNICIAN #### [facility] [address] [place] [address] Dr. Erasmo Smith Chloride [Moles/Vol] 104 mmol/L Normal 98-[address] [facility] Comment on above: Performed By: #### B COORDINATE MEASURING MACHINE TECHNICIAN #### [facility] [address] [place] [address] Dr. Erasmo Smith CO2 [Moles/Vol] 26.2 mmol/L Normal 21.0-32.0 [facility] Comment on above: Performed By: #### B COORDINATE MEASURING MACHINE TECHNICIAN #### [facility] [address] [place] [address] Dr. Erasmo Smith Creatinine [Mass/Vol] 0.52 mg/dL Critically low 0.55-1.[address] [facility] Comment on above: Performed By: #### B COORDINATE MEASURING MACHINE TECHNICIAN #### [facility] [address] [place] [address] Dr. Erasmo Smith EGFR-AF TURKISH >60 Normal >=60 [facility] Comment on above: Performed By: #### B COORDINATE MEASURING MACHINE TECHNICIAN #### [facility] [address] [place] [address] Dr. Erasmo Smith EGFR-NON AF TURKISH >60 Normal >=[address] [facility] Comment on above: Performed By: #### B COORDINATE MEASURING MACHINE TECHNICIAN #### [facility] [address] [place] [address] Dr. Erasmo Smith Globulin (S) [Mass/Vol] 4.3 g/dL Normal [facility] Comment on above: Performed By: #### B COORDINATE MEASURING MACHINE TECHNICIAN #### [facility] [address] [place] [address] Dr. Erasmo Smith Glucose [Mass/Vol] 135 mg/dL Critically high 74-106 [facility] Comment on above: Performed By: #### B COORDINATE MEASURING MACHINE TECHNICIAN #### [facility] [address] [place] [address] Dr. Erasmo Smith Potassium [Moles/Vol] 3.8 mmol/L Normal 3.5-5.[address] [facility] Comment on above: Performed By: #### B COORDINATE MEASURING MACHINE TECHNICIAN #### [facility] [address] [place] [address] [address] Erasmo Smith Protein [Mass/Vol] 7.0 g/dL Normal 6.4-8.2 [facility] Comment on above: Performed By: #### B COORDINATE MEASURING MACHINE TECHNICIAN #### [facility] [address] [place] [address] [address] Erasmo Smith Sodium [Moles/Vol] 137 mmol/L Normal 136-145 [facility] Comment on above: Performed By: #### B COORDINATE MEASURING MACHINE TECHNICIAN #### [facility] [address] [place] [address] Dr. Erasmo Smith Urea nitrogen [Mass/Vol] 16.0 mg/dL Normal 7.0-18.[address] [facility] Comment on above: Performed By: #### B COORDINATE MEASURING MACHINE TECHNICIAN #### [facility] [address] [place] [address] Dr. Erasmo Smith Urea nitrogen/Creatinine [Mass ratio] 30.8 mg/mg Normal [facility] Comment on above: Performed By: #### B COORDINATE MEASURING MACHINE TECHNICIAN #### [facility] [address] [place] [address] Dr. Erasmo Smith PROTIMEon 12-02-2022 INR Coag (PPP) [Relative time] 4.39 {INR} Critically high [facility] Comment on above: Performed By: #### P T #### [facility] [address] [place] [address] Dr. Erasmo Smith INR GUIDELINES SEE BELOW Normal [facility] Comment on above: Result Comment: ABNER RED INR: 2.0 - 3.0 CONDITIONS NOT LISTED BELOW 2.5 - 3.5 FOR PROSTHETIC HEART VALVE REPLACEMENT 2.5 - 3.5 RECURRENT THROMBOSIS Performed By: #### P T #### [facility] [address] [place] [address] Dr. Erasmo Smith PT Coag (PPP) [Time] 42.8 s Critically high 9.0-11.[address] [facility] Comment on above: Performed By: #### P T #### [facility] [address] [address] [address] Erasmo Smith UA RANDOM W/MICROSCOPICon BACTERIA NONE SEEN Normal NONE SEEN [facility] Comment on above: Performed By: #### U AMIC ####[facility] [address]aqkz[address] [place] [address]Dr. Erasmo Smith Bilirubin Ql (U) Negative Normal NEGATIVE [facility] Comment on above: Performed By: #### U AMIC ####[facility] [address]vicxd[address] [place] [address]Dr. Erasmo Smith CAST NONE SEEN Normal NONE SEEN [facility] Comment on above: Performed By: #### U AMIC ####[facility] [address]brctjsnjc[address] [place] [address]Dr. Erasmo Smith Clarity (U) CLEAR Normal CLEAR [facility] Comment on above: Performed By: #### U AMIC ####[facility] [address] [place] [address]Dr. Erasmo Smith Color (U) YELLOW Normal YELLOW [facility] Comment on above: Performed By: #### U AMIC ####[facility] [address] [place] [address]Dr. Erasmo Smith Crystals LM Nom (Urine sed) NONE SEEN Normal NONE SEEN [facility] Comment on above: Performed By: #### U AMIC ####[facility] [address] [place] [address]Dr. Erasmo Smith Epithelial cells LM Ql (Urine sed) RARE Normal NONE SEEN /RARE [facility] Comment on above: Performed By: #### U AMIC ####[facility] [address] [place] [address]Dr. Erasmo Smith Glucose Ql (U) Negative Normal NEGATIVE [facility] Comment on above: Performed By: #### U AMIC ####[facility] [address] [place] [address]Dr. Erasmo Smith Hemoglobin Ql (U) SMALL Abnormal NEGATIVE [facility] Comment on above: Performed By: #### U AMIC ####[facility] [address] [place] [address]Dr. Erasmo Smith Ketones Ql (U) 15 mg/dl Abnormal NEGATIVE [facility] Comment on above: Performed By: #### U AMIC ####[facility] Emm[address]qjikmn[address] [place] [address]Dr. Erasmo Smith LEUKOCYTES Negative Normal NEGATIVE [facility] Comment on above: Performed By: #### U AMIC ####[facility] [address] [place] [address]Dr. Erasmo Smith MUCOUS NONE SEEN Normal NONE SEEN [facility] Comment on above: Performed By: #### U AMIC ####[facility] [address] [place], [place] [address]Dr. Erasmo Smith Nitrite Ql (U) Negative Normal NEGATIVE [facility] Comment on above: Performed By: #### U AMIC ####[facility] [address] [place], [place] [address]Dr. Erasmo Smith pH (U) 6.0 [pH] Normal 5-9 [facility] Comment on above: Performed By: #### U AMIC ####[facility] [address] [place], [place] [address]Dr. Erasmo Smith RBC 0-2 Normal 0-2 [facility] Comment on above: Performed By: #### U AMIC ####[facility] [address] [place], [place] [address]Dr. Erasmo Smith SPEC GRAVITY 1.025 Normal 1.005-<=1.[address] [facility] Comment on above: Performed By: #### U AMIC ####[facility] [address] [place], [place] [address]Dr. Erasmo Smith UA PROTEIN TRACE Normal NEGATIVE/ TRACE [facility] Comment on above: Performed By: #### U AMIC ####[facility] [address] [place], [place] [address]Dr. Erasmo Smith Urobilinogen Qn (U) 4 {Shraddha'U}/dL Abnormal 0.2 - 1.0 [facility] Comment on above: Performed By: #### U AMIC ####[facility] [address] [place], [place] [address]ZwDr. Erasmo Smith WBC 0-2 Abnormal NONE SEEN [facility] Comment on above: Performed By: #### U AMIC ####[facility] [address] [place], [place] [address]VvDr. Erasmo Smith CARDIAC ROSA ELENA 3-6on 3 CK [Catalytic activity/Vol] 53 U/L Normal 26-192 [facility] Comment on above: Performed By: #### C MREP #### [facility] [address] [address] [address] Erasmo BAE.MB [Mass/Vol] 0.90 ng/mL Normal <=3.60 [facility] Comment on above: Performed By: #### C MREP #### [facility] [address] [address] [address] Erasmo Smith HSTROP 116.7 pg/mL Critically high 4.0-51.3 [facility] Comment on above: Result Comment: CUT- OFF POINTS HAVE BEEN ESTABLISHED BASED ON THE FOURTH UNIVERSAL DEFINITIONS OF MYOCARDIAL INFARCTION. THE UPPER REFERENCE LIMIT (URL) OF TROPONIN, DEFINED THE 99TH PERCENTILE OF cTnI DISTRIBUTION IN A REFERENCE POPULATION, HAS BEEN CONFIRMED THE DECISION THRESHOLD FOR TN DIAGNOSIS. Performed By: #### C MREP #### [facility] [address] [address] [address] Erasmo Smith CK [Catalytic activity/Vol] 47 U/L Normal 26-192 [facility] Comment on above: Performed By: #### B COORDINATE MEASURING MACHINE TECHNICIAN #### [facility] [address] [address] [address] Erasmo BAE.MB [Mass/Vol] 1.00 ng/mL Normal <=3.60 [facility] Comment on above: Performed By: #### B COORDINATE MEASURING MACHINE TECHNICIAN #### [facility] [address] [address] [address] Erasmo Smith HSTROP 154.3 pg/mL Critically high 4.0-51.3 [facility] Comment on above: Result Comment: CUT- OFF POINTS HAVE BEEN ESTABLISHED BASED ON THE FOURTH UNIVERSAL DEFINITIONS OF MYOCARDIAL INFARCTION. THE UPPER REFERENCE LIMIT (URL) OF TROPONIN, DEFINED THE 99TH PERCENTILE OF cTnI DISTRIBUTION IN A REFERENCE POPULATION, HAS BEEN CONFIRMED THE DECISION THRESHOLD FOR TN DIAGNOSIS. Performed By: #### B COORDINATE MEASURING MACHINE TECHNICIAN #### [facility] [address] [place] [address] Dr. Erasmo Smith CBC W MANUAL DIFFon 12-02-19 ATYPICAL LYMPH # Normal [facility] Comment on above: Performed By: #### C ANGELA #### [facility] [address] [place] [address] Dr. Erasmo Smith ATYPICAL LYMPH % Normal [facility] Comment on above: Performed By: #### C ANGELA #### [facility] [address] [place] [address] Dr. Erasmo Smith BAND # 0.6 103/ul Critically high 0.0-0.3 [facility] Comment on above: Performed By: #### C ANGELA #### [facility] [address] [place] [address] Dr. Erasmo Smith BAND % 3 % Normal 0-5 [facility] Comment on above: Performed By: #### C ANGELA #### [facility] [address] [place] [address] Dr. Erasmo Smith BASOM # 0.00 103/ul Normal 0.00-0.[address] [facility] Comment on above: Performed By: #### C ANGELA #### [facility] [address] [place] [address] Dr. Erasmo Smith BASOM % 0.0 % Critically low 0.2-2.0 [facility] Comment on above: Performed By: #### C ANGELA #### [facility] [address] [place] [address] Dr. Erasmo Smith BLAST # Normal [facility] Comment on above: Performed By: #### C ANGELA #### [facility] [address] [place] [address] Dr. Erasmo Smith BLAST % Normal [facility] Comment on above: Performed By: #### C ANGELA #### [facility] [address] [address] [address] Erasmo Smith CORRECTED WBC Normal 4.0-11.0 [facility] [place] [facility] Comment on above: Performed By: #### C ANGELA #### [facility] [address] [place] [address] Dr. Erasmo Smith EOS # 0.19 103/ul Normal 0.00-0.[address] [facility] Comment on above: Performed By: #### C ANGELA #### [facility] [address] [place] [address] Dr. Erasmo Smith EOS% 1.0 % Normal 0.9-7.[address] [facility] Comment on above: Performed By: #### C ANGELA #### [facility] [address] [place] [address] Dr. Erasmo Smith HCT 32.7 % Critically low 36.0-48.0 [facility] Comment on above: Performed By: #### C ANGELA #### [facility] [address] [place] [address] Dr. Erasmo Smith HGB 10.5 g/dl Critically low 12.0-16.0 [facility] Comment on above: Performed By: #### C ANGELA #### [facility] [address] [place] [address] Dr. Erasmo Smith LYMPHM # 0.76 103/ul Critically low 1.20-3.80 [facility] Comment on above: Performed By: #### C ANGELA #### [facility] [address] [place] [address] Dr. Erasmo Smith LYMPHM% 4.0 % Critically low 20.5-60.0 [facility] Comment on above: Performed By: #### C ANGELA #### [facility] [address] [place] [address] Dr. Erasmo Smith MCH 25.9 pg Critically low 26.7-34.0 [facility] Comment on above: Performed By: #### C ANGELA #### [facility] [address] [place] [address] Dr. Erasmo Smith MCHC 32.1 g/dl Normal 29.9-35.[address] [facility] Comment on above: Performed By: #### C BCMAN #### [facility] [address] [place] [address] Dr. Erasmo Smith MCV 80.5 fL Critically low 81.0-99.0 [facility] Comment on above: Performed By: #### C BCMAN #### [facility] [address] [place] [address] Dr. Erasmo Smith METAMYELOCYTE # Normal [facility] Comment on above: Performed By: #### C BCMAN #### [facility] [address] [place] [address] Dr. Erasmo Smith METAMYELOCYTE % Normal [facility] Comment on above: Performed By: #### C BCBLAISE #### [facility] [address] [place] [address] Dr. Erasmo Smith MONOM# 1.14 103/ul Critically high 0.30-0.80 [facility] Comment on above: Performed By: #### C BCBLAISE #### [facility] [address] [place] [address] Dr. Erasmo Smith MONOM% 6.0 % Normal 1.7-12.[address] [facility] Comment on above: Performed By: #### C BCMAN #### [facility] [address] [place] [address] Dr. Erasmo Smith MPV 9.4 fL Critically low 9.5-13.5 [facility] Comment on above: Performed By: #### C BCMAN #### [facility] [address] [place] [address] Dr. Erasmo Smith MYELOCYTE # Normal [facility] Comment on above: Performed By: #### C BCMAN #### [facility] [address] [place] [address] Dr. Erasmo Smith MYELOCYTE % Normal [facility] Comment on above: Performed By: #### C BCMAN #### [facility] [address] [place] [address] Dr. Erasmo Smith NRBC Normal [facility] Comment on above: Performed By: #### C BCMAN #### [facility] [address] [place], [place] [address] Dr. Erasmo Smith PLT 195 103/ul Normal 150-[address] [facility] Comment on above: Performed By: #### C BCMAN #### [facility] [address] [place], [place] [address] Dr. Erasmo Smith RBC 4.06 106/ul Critically low 4.20-5.40 [facility] Comment on above: Performed By: #### C BCMAN #### [facility] [address] [address] [address] Erasmo Smith RDW 17.7 % Critically high 11.0-15.0 [facility] Comment on above: Performed By: #### C BCMAN #### [facility] [address] [address] [address] Erasmo Smith SEG # 16.34 103/ul Critically high 1.40-6.50 [facility] Comment on above: Performed By: #### C BCMAN #### [facility] [address] [address] [address] Erasmo Smith SEG % 86.0 % Critically high 43.0-75.0 [facility] Comment on above: Performed By: #### C BCMAN #### [facility] [address] [place], [place] [address] Dr. Erasmo Smith WBC 19.0 103/ul Critically high 4.0-11.0 [facility] Comment on above: Performed By: #### C BCMAN #### [facility] [address] [address] HEAD WO CONon [...] SALOME MCCORMICK Date: 2022 14:50 Normal [facility] CULTURE BLOODon 2022 Microscopic examination of blood, culture Culture Observations: Aerobic and Anaerobic bottle positive. BCID: E. Coli Culture Observations: Refer to for VIOLET. Isolate 1 Escherichia coli Growth of Normal [facility] Comment on above: Performed By: #### B LDCX2 ####[facility] [address] [place], [place] [address]JtDr. Erasmo Smith Covid-19 PCR (CVDTB)on 11-11 SARS-CoV-2 (COVID-19) RNA EMILY+probe Ql (Unsp spec) Not detected Normal NOT DETECTED [facility] Comment on above: Result Comment: When [...] for this test is supported by the [place] of [employer] and Human Service's declaration that [...] used). Performed By: #### C MREP #### [facility] [address] [place], [place] [address] Dr. Erasmo Smith LACTATE/LACTIC ACIDon 2022 Lactate [Moles/Vol] 1.2 mmol/L Normal 0.4-2.0 [facility] Comment on above: Performed By: #### L ACT ####[facility] [address] [place] [address]Dr. Erasmo Smith PH VENOUS BLOODon 2022 PCO2 VENOUS 37.8 mmHg Critically low 40.0-52.0 [facility] Comment on above: Performed By: #### P HVEN ####[facility] [address] [place] [address]Dr. Erasmo Smith pH VENOUS 7.417 Normal 7.330-7.[address] [facility] Comment on above: Performed By: #### P HVEN ####[facility] [address] [place] [address]Dr. Erasmo Smith PROF 14(COMP METB)on 023 Albumin [Mass/Vol] 3.1 g/dL Critically low 3.4-5.0 [facility] Comment on above: Performed By: #### H ALEXSANDER, CMP ####[facility] [address] [place], [place] [address]Dr. Erasmo Smith Albumin/Globulin [Mass ratio] 0.8 {ratio} Normal [facility] Comment on above: Performed By: #### H ALEXSANDER, CMP ####[facility] [address]be[address] [place], [place] [address]Dr. Erasmo Smith ALP [Catalytic activity/Vol] 194 U/L Critically high 46-[address] [facility] Comment on above: Performed By: #### H ALEXSANDER, CMP ####[facility] [address] [place] [address]Dr. Erasmo Smith ALT [Catalytic activity/Vol] 37 U/L Normal 14-[address] [facility] Comment on above: Performed By: #### H ALEXSANDER, CMP ####[facility] [address] [place] [address]Dr. Erasmo Smith Anion gap [Moles/Vol] 14.6 mmol/L Normal [facility] Comment on above: Performed By: #### H ALEXSANDER, CMP ####[facility] [address] [place] [address]Dr. Erasmo Smith AST [Catalytic activity/Vol] 32 U/L Normal 15-[address] [facility] Comment on above: Performed By: #### H ALEXSANDER, CMP ####[facility] [address] [place] [address]Dr. Erasmo Smith Bilirubin [Mass/Vol] 1.0 mg/dL Normal 0.2-1.[address] [facility] Comment on above: Performed By: #### H ALEXSANDER, CMP ####[facility] [address] [place], [place] [address]Dr. Erasmo Smith Calcium [Mass/Vol] 8.9 mg/dL Normal 8.5-10.1 [facility] [place] Comment on above: Performed By: #### H ALEXSANDER, CMP ####[facility] [address] [place], [place] [address]Dr. Erasmo Smith Chloride [Moles/Vol] 103 mmol/L Normal 98-107 [facility] Comment on above: Performed By: #### H ALEXSANDER, CMP ####[facility] [address]oq[address] [place], [place] [address]Dr. Erasmo Smith CO2 [Moles/Vol] 23.6 mmol/L Normal 21.0-32.0 [facility] Comment on above: Performed By: #### H ALEXSANDER, CMP ####[facility] Af[address]rhma[address] [place], [place] [address]Dr. Erasmo Smith Creatinine [Mass/Vol] 0.69 mg/dL Normal 0.55-1.[address] [facility] Comment on above: Performed By: #### H ALEXSANDER, CMP ####[facility] [address]ug[address] [place], [place] [address]Dr. Erasmo Smith EGFR-AF TURKISH >60 Normal >=60 [facility] Comment on above: Performed By: #### H ALEXSANDER, CMP ####[facility] Pdolyyelzr[address] [place], [place] [address]Dr. Erasmo Smith EGFR-NON AF TURKISH >60 Normal >=60 [facility] Comment on above: Performed By: #### H ALEXSANDER, CMP ####[facility] [address]rcsb[address] [place], [place] [address]Dr. Erasmo Smith Globulin (S) [Mass/Vol] 4.1 g/dL Normal [facility] Comment on above: Performed By: #### Kymberly BELTRE, CMP ####[facility] [address] [place] [address]Dr. Erasmo Smith Glucose [Mass/Vol] 121 mg/dL Critically high 74-106 [facility] Comment on above: Performed By: #### Kymberly BELTRE, CMP ####[facility] [address] [place] [address]Dr. Erasmo Smith Potassium [Moles/Vol] 3.2 mmol/L Critically low 3.5-5.[address] [facility] Comment on above: Performed By: #### Kymberly BELTRE, CMP ####[facility] [address] [place], [place] [address]Dr. Erasmo Smith Protein [Mass/Vol] 7.2 g/dL Normal 6.4-8.2 [facility] [place] Comment on above: Performed By: #### Kymberly BELTRE, CMP ####[facility] [address] [place], [place] [address]Dr. Erasmo Smith Sodium [Moles/Vol] 138 mmol/L Normal 136-145 [facility] [place] Comment on above: Performed By: #### Kymberly BELTRE, CMP ####[facility] [address] [place], [place] [address]Dr. Erasmo Smith Urea nitrogen [Mass/Vol] 17.0 mg/dL Normal 7.0-18.[address] [facility] Comment on above: Performed By: #### Kymberly BELTRE, CMP ####[facility] [address] [place] [address]Dr. Erasmo Smith Urea nitrogen/Creatinine [Mass ratio] 24.6 mg/mg Normal [facility] Comment on above: Performed By: #### Kymberly BELTRE, CMP ####[facility] [address] [place] [address]Dr. Erasmo Smith PROTIMEon 2022 INR Coag (PPP) [Relative time] 3.58 {INR} Normal [facility] Comment on above: Performed By: #### P Jonah, PTT #### [facility] [address] [place] [address] Dr. Erasmo Smith INR GUIDELINES SEE BELOW Normal [facility] Comment on above: Result Comment: ABNER RED INR: 2.0 - 3.0 CONDITIONS NOT LISTED BELOW 2.5 - 3.5 FOR PROSTHETIC HEART VALVE REPLACEMENT 2.5 - 3.5 RECURRENT THROMBOSIS Performed By: #### P T, PTT #### [facility] [address] [place] [address] Dr. Erasmo Smith PT Coag (PPP) [Time] 35.3 s Critically high 9.0-11.6 [facility] Comment on above: Performed By: #### P T, PTT #### [facility] [address] [place] [address] Dr. Erasmo Smith PTTon 2022 aPTT Coag (Bld) [Time] 40.3 s Critically high 22.3-36. 2 [facility] Comment on above: Performed By: #### P T, PTT #### [facility] [address] [place] [address] Dr. Erasmo Smith TROPONIN, HIGH SENSITIVITYon 2022 HSTROP 194.7 pg/mL Critically high 4.0-51.3 [facility] Comment on above: Result Comment: CUT- OFF POINTS HAVE BEEN ESTABLISHED BASED ON THE FOURTH UNIVERSAL DEFINITIONS OF MYOCARDIAL INFARCTION. THE UPPER REFERENCE LIMIT (URL) OF TROPONIN, DEFINED THE 99TH PERCENTILE OF cTnI DISTRIBUTION IN A REFERENCE POPULATION, HAS BEEN CONFIRMED THE DECISION THRESHOLD FOR TN DIAGNOSIS. Performed By: #### C MREP #### [facility] [address] [place] [address] Dr. Erasmo Smith HSTROP 218.0 pg/mL Critically high 4.0-51.3 [facility] Comment on above: Result Comment: CUT- OFF POINTS HAVE BEEN ESTABLISHED BASED ON THE FOURTH UNIVERSAL DEFINITIONS OF MYOCARDIAL INFARCTION. THE UPPER REFERENCE LIMIT (URL) OF TROPONIN, DEFINED THE 99TH PERCENTILE OF cTnI DISTRIBUTION IN A REFERENCE POPULATION, HAS BEEN CONFIRMED THE DECISION THRESHOLD FOR TN DIAGNOSIS. Performed By: #### B COORDINATE MEASURING MACHINE TECHNICIAN #### [facility] [id number] Erasmo Smith XR CHEST 1 Von [...] by: HONG ALSTON Date: 2022 14:18 Normal [facility] MAMM SCREEN 3D TOÑITO CADon 11-26-2022 MG MAMM SCREEN 3D TOÑITO CAD Patient: BREANN STARKS Exam Date: 11/26/2022 : 1945 Gender:F Ordering : DR LUISANA FISHER . Admission #: [id number] Family : Order #: [id number] CLICK HERE TO VIEW EXAM RADIOLOGY REPORT [...] Treatments None Family Cancers None LOCATION: [facility] BREAST COMPOSITION: Heterogeneously dense,which may obscure [...] Delgado M.D. on 11/26/2022 at 14:[address] [facility] PROF 14(COMP METB)on 022 Albumin [Mass/Vol] 3.8 g/dL Normal 3.4-5.0 [facility] [place] Comment on above: Performed By: #### C MREP #### [facility] [address] [address] [address] Erasmo Smith Albumin/Globulin [Mass ratio] 0.8 {ratio} Normal [facility] Comment on above: Performed By: #### C MREP #### [facility] [address] [place] [address] Dr. Erasmo Smith ALP [Catalytic activity/Vol] 102 U/L Normal 46-[address] [facility] Comment on above: Performed By: #### C MREP #### [facility] [address] [place] [address] Dr. Erasmo Smith ALT [Catalytic activity/Vol] 47 U/L Normal 14-[address] [facility] Comment on above: Performed By: #### C MREP #### [facility] [address] [place] [address] Dr. Erasmo Smith Anion gap [Moles/Vol] 12.5 mmol/L Normal [facility] Comment on above: Performed By: #### C MREP #### [facility] [address] [place] [address] Dr. Erasmo Smith AST [Catalytic activity/Vol] 36 U/L Normal 15-[address] [facility] Comment on above: Performed By: #### C MREP #### [facility] [address] [place] [address] [address] Erasmo Smith Bilirubin [Mass/Vol] 0.3 mg/dL Normal 0.2-1.[address] [facility] Comment on above: Performed By: #### C MREP #### [facility] [address] [place] [address] Dr. Erasmo Smith Calcium [Mass/Vol] 8.9 mg/dL Normal 8.5-10.1 [facility] [place] Comment on above: Performed By: #### C MREP #### [facility] [address] [place] [address] Dr. Erasmo Smith Chloride [Moles/Vol] 106 mmol/L Normal 98-107 [facility] Comment on above: Performed By: #### C MREP #### [facility] [address] [place] [address] [address] Erasmo Smith CO2 [Moles/Vol] 26.9 mmol/L Normal 21.0-32.0 [facility] Comment on above: Performed By: #### C MREP #### [facility] [address] [place] [address] [address] Erasmo Smith Creatinine [Mass/Vol] 0.79 mg/dL Normal 0.55-1.[address] [facility] Comment on above: Performed By: #### C MREP #### [facility] [address] [place] [address] Dr. Erasmo Smith EGFR-AF TURKISH >60 Normal >=60 [facility] Comment on above: Performed By: #### C MREP #### [facility] [address] [place] [address] Dr. Erasmo Smith EGFR-NON AF TURKISH >60 Normal >=[address] [facility] Comment on above: Performed By: #### C MREP #### [facility] [address] [place] [address] Dr. Erasmo Smith Globulin (S) [Mass/Vol] 4.6 g/dL Normal [facility] Comment on above: Performed By: #### C MREP #### [facility] [address] [place] [address] Dr. Erasmo Smith Glucose [Mass/Vol] 102 mg/dL Normal 74-106 [facility] [place] Comment on above: Performed By: #### C MREP #### [facility] [address] [address] [address] Erasmo Smith Potassium [Moles/Vol] 4.4 mmol/L Normal 3.5-5.[address] [facility] Comment on above: Performed By: #### C MREP #### [facility] [address] [place] [address] Dr. Erasmo Smith Protein [Mass/Vol] 8.4 g/dL Critically high 6.4-8.2 [facility] Comment on above: Performed By: #### C MREP #### [facility] [address] [place] [address] Dr. Erasmo Smith Sodium [Moles/Vol] 141 mmol/L Normal 136-145 [facility] [place] Comment on above: Performed By: #### C MREP #### [facility] [address] [place] [address] Dr. Erasmo Smith Urea nitrogen [Mass/Vol] 28.0 mg/dL Critically high 7.0-18.[address] [facility] Comment on above: Performed By: #### C MREP #### [facility] [address] [place] [address] Dr. Erasmo Smith Urea nitrogen/Creatinine [Mass ratio] 35.4 mg/mg Normal [facility] Comment on above: Performed By: #### C MREP #### [facility] [address] [place] [address] Dr. Erasmo Smith CBC AUTO DIFFon 07-12-2022 BASO # 0.1 103/ul Normal 0.0-0.[address] [facility] Comment on above: Performed By: #### B COORDINATE MEASURING MACHINE TECHNICIAN #### [facility] [address] [place] [address] Dr. Erasmo Smith Basophils/100 WBC (Bld) 0.5 % Normal 0.2-2.[address] [facility] Comment on above: Performed By: #### B COORDINATE MEASURING MACHINE TECHNICIAN #### [facility] [address] [place] [address] Dr. Erasmo Smith EO # 0.2 103/ul Normal 0.0-0.[address] [facility] Comment on above: Performed By: #### B COORDINATE MEASURING MACHINE TECHNICIAN #### [facility] [address] [place] [address] Dr. Erasmo Smith Eosinophils/100 WBC (Bld) 2.5 % Normal 0.9-7.[address] [facility] Comment on above: Performed By: #### B COORDINATE MEASURING MACHINE TECHNICIAN #### [facility] [address] [place] [address] Dr. Erasmo Smith Erythrocyte distribution width (RBC) [Ratio] 17.2 % Critically high 11.0-15.[address] [facility] Comment on above: Performed By: #### B COORDINATE MEASURING MACHINE TECHNICIAN #### [facility] [address] [place] [address] Dr. Erasmo Smith Hematocrit (Bld) [Volume fraction] 35.0 % Critically low 36.0-48.[address] [facility] Comment on above: Performed By: #### B COORDINATE MEASURING MACHINE TECHNICIAN #### [facility] [address] [place] [address] Dr. Erasmo Smith Hemoglobin (Bld) [Mass/Vol] 11.3 g/dL Critically low 12.0-16.[address] [facility] Comment on above: Performed By: #### B COORDINATE MEASURING MACHINE TECHNICIAN #### [facility] [address] [place] [address] Dr. Erasmo Smith IG # 0.02 10e3/ul Normal 0.00-0.[address] [facility] Comment on above: Performed By: #### B COORDINATE MEASURING MACHINE TECHNICIAN #### [facility] [address] [place] [address] Dr. Erasmo Smith IG % 0.2 % Normal 0.0-0.[address] [facility] Comment on above: Performed By: #### B COORDINATE MEASURING MACHINE TECHNICIAN #### [facility] [address] [place] [address] Dr. Erasmo Smith LYMPH # 2.3 103/ul Normal 1.2-3.[address] [facility] Comment on above: Performed By: #### B COORDINATE MEASURING MACHINE TECHNICIAN #### [facility] [address] [place] [address] Dr. Erasmo Smith Lymphocytes/100 WBC (Bld) 25.4 % Normal 20.5-60.[address] [facility] Comment on above: Performed By: #### B COORDINATE MEASURING MACHINE TECHNICIAN #### [facility] [address] [place] [address] Dr. Erasmo Smith MANUAL DIFF REQ NO Normal [facility] Comment on above: Performed By: #### B COORDINATE MEASURING MACHINE TECHNICIAN #### [facility] [address] [place] [address] Dr. Erasmo Smith MCH (RBC) [Entitic mass] 25.5 pg Critically low 26.7-34.[address] [facility] Comment on above: Performed By: #### B COORDINATE MEASURING MACHINE TECHNICIAN #### [facility] [address] [address] [address] Erasmo Smith MCHC (RBC) [Mass/Vol] 32.3 g/dL Normal 29.9-35.[address] [facility] Comment on above: Performed By: #### B COORDINATE MEASURING MACHINE TECHNICIAN #### [facility] [address] [address] [address] Erasmo Smith MCV (RBC) [Entitic vol] 78.8 fL Critically low 81.0-99.[address] [facility] Comment on above: Performed By: #### B COORDINATE MEASURING MACHINE TECHNICIAN #### [facility] [address] [place] [address] Dr. Erasmo Smith MONO # 0.7 103/ul Normal 0.3-0.[address] [facility] Comment on above: Performed By: #### B COORDINATE MEASURING MACHINE TECHNICIAN #### [facility] [address] [place] [address] Dr. Erasmo Smith Monocytes/100 WBC (Bld) 7.5 % Normal 1.7-12.[address] [facility] Comment on above: Performed By: #### B COORDINATE MEASURING MACHINE TECHNICIAN #### [facility] [address] [place] [address] Dr. Erasmo Smith NEUT # 5.9 103/ul Normal 1.4-6.[address] [facility] Comment on above: Performed By: #### B COORDINATE MEASURING MACHINE TECHNICIAN #### [facility] [address] [place] [address] Dr. Erasmo Smith Neutrophils/100 WBC (Bld) 63.9 % Normal 43.0-75.[address] [facility] Comment on above: Performed By: #### B COORDINATE MEASURING MACHINE TECHNICIAN #### [facility] [address] [place] [address] Dr. Erasmo Smith Platelet mean volume (Bld) [Entitic vol] 9.0 fL Critically low 9.5-13.[address] [facility] Comment on above: Performed By: #### B COORDINATE MEASURING MACHINE TECHNICIAN #### [facility] [address] [place] [address] Dr. Erasmo Smith PLT 305 103/ul Normal 150-450 [facility] Comment on above: Performed By: #### B COORDINATE MEASURING MACHINE TECHNICIAN #### [facility] [address] [place], [place] [address] Dr. Erasmo Smith RBC 4.44 106/ul Normal 4.20-5.[address] [facility] Comment on above: Performed By: #### B COORDINATE MEASURING MACHINE TECHNICIAN #### [facility] [address] [place], [place] [address] Dr. Erasmo Smith WBC 9.2 103/ul Normal 4.0-11.[address] [facility] Comment on above: Performed By: #### B COORDINATE MEASURING MACHINE TECHNICIAN #### [facility] [address] [place], [place] [address] CHEST WO CONon [...] PAULA DELGADO Date: 2022-05-27 15:27 Normal [facility] HEMOGLOBINon 04-20-2022 Hemoglobin (Bld) [Mass/Vol] 10.6 g/dL Critically low 12.0-16.0 [facility] Comment on above: Performed By: #### H GB ####[facility] [address] [place], [place] [address]OvDr. Erasmo Smith CULTURE SPUTUMon 04-02-2022 CULTURE SPUTUM Isolate 1 Pseudomonas aeruginosa Light growth of ORGANISM 1 Pseudomonas aeruginosa ANTIBIOTIC M.I.C RX STATUS Piperacillin/Tazobac saez 8 S F Ceftazidime 2 S F Imipenem 1 S F Amikacin <=2 S F Gentamicin <=1 S F Tobramycin <=1 S F Ciprofloxacin <=0.25 S F Levofloxacin 0.25 S F Normal [facility] Comment on above: Performed By: #### S PUTCX ####[facility] [address] [address]Dr. Erasmo Smith CYTOLOGYon 03-30-2022 SENT TO REF LAB 03/31/22 Normal [facility] Comment on above: Performed By: #### C YTO #### [facility] [address] [place] [address] Dr. Erasmo Smith SPUTUM GRAM STAINon 03-30-[address] COMMENTS Normal [facility] Comment on above: Performed By: #### B COORDINATE MEASURING MACHINE TECHNICIAN #### [facility] [address] [place] [address] Dr. Erasmo Smith DIPHTHEROIDS Normal [facility] Comment on above: Performed By: #### B COORDINATE MEASURING MACHINE TECHNICIAN #### [facility] [address] [address] [address] Erasmo Smith EPITHELIALS <[address] [facility] Comment on above: Performed By: #### B COORDINATE MEASURING MACHINE TECHNICIAN #### [facility] [address] [address] [address] Erasmo Smith FUNGAL ELEMENTS Normal [facility] Comment on above: Performed By: #### B COORDINATE MEASURING MACHINE TECHNICIAN #### [facility] [address] [address] [address] Erasmo Smith GRAM NEG BACILLI FEW Normal [facility] Comment on above: Performed By: #### B COORDINATE MEASURING MACHINE TECHNICIAN #### [facility] [address] [place] [address] Dr. Erasmo CINTRON NEG DIPPLOCOCCI Normal [facility] Comment on above: Performed By: #### B COORDINATE MEASURING MACHINE TECHNICIAN #### [facility] [address] [address] [address] Yilan Smith GRAM POS BACILLI Normal [facility] Comment on above: Performed By: #### B COORDINATE MEASURING MACHINE TECHNICIAN #### [facility] [address] [address] [address] Erasmo Smith GRAM POSITIVE COCCI MANY Normal [facility] Comment on above: Performed By: #### B COORDINATE MEASURING MACHINE TECHNICIAN #### [facility] [address] [address] [address] Erasmo Smith WBC (Bld) [#/Vol] 10*3/uL Normal [facility] Comment on above: Performed By: #### B COORDINATE MEASURING MACHINE TECHNICIAN #### [facility] [address] [address] [address] Erasmo Smith SPUTUM CULTUREon 03-01-2022 Epithelial cells LM Ql (Urine sed) Few Normal [facility] Comment on above: Performed By: #### C XSPTUM ####[facility] [address] [address]Dr. Erasmo Smith Gram Stain Evaluation Comment Normal [facility] Comment on above: Result Comment: This specimen is of good quality and is acceptable for routine bacterial culture. Performed By: #### C XSPTUM ####[facility] [address] [place], [place] [address]DrMeena Smith Lower Respiratory Culture Final report Normal [facility] Comment on above: Performed By: #### C XSPTUM ####[facility] [address] [address]Dr. Earsmo Smith Result 1 Comment Normal [facility] Comment on above: Result Comment: Few gram positive cocci Performed By: #### C XSPTUM ####[facility] [address] [address]Dr. Erasmo Smith Result Comment: Rout ine respiratory adria Result 2 Normal [facility] Comment on above: Performed By: #### C XSPTUM ####[facility] [address] [address]Dr. Erasmo Smith Result 3 Normal [facility] Comment on above: Performed By: #### C XSPTUM ####[facility] [address] [address]Dr. Erasmo Smith Result 4 Normal [facility] Comment on above: Performed By: #### C XSPTUM ####[facility] [address] [address]Dr. Erasmo Smith White Blood Cells Few Normal [facility] Comment on above: Performed By: #### C XSPTUM ####[facility] [address] [id number]. Erasmo Smith BNPon 02-24-2022 Natriuretic peptide B (Bld) [Mass/Vol] 319.0 pg/mL Normal <=900.[address] [facility] Comment on above: Performed By: #### B COORDINATE MEASURING MACHINE TECHNICIAN #### [facility] [address] [place] [address] Dr. Erasmo Smith CBC AUTO DIFFon 02-24-2022 BASO # 0.1 103/ul Normal 0.0-0.[address] [facility] Comment on above: Performed By: #### C MREP #### [facility] [address] [place] [address] Dr. Erasmo Smith Basophils/100 WBC (Bld) 0.5 % Normal 0.2-2.[address] [facility] Comment on above: Performed By: #### C MREP #### [facility] [address] [place] [address] Dr. Erasmo Smith EO # 0.3 103/ul Normal 0.0-0.[address] [facility] Comment on above: Performed By: #### C MREP #### [facility] [address] [place] [address] Dr. Erasmo Smith Eosinophils/100 WBC (Bld) 3.1 % Normal 0.9-7.[address] [facility] Comment on above: Performed By: #### C MREP #### [facility] [address] [place] [address] Dr. Erasmo Smith Erythrocyte distribution width (RBC) [Ratio] 15.1 % Critically high 11.0-15.[address] [facility] Comment on above: Performed By: #### C MREP #### [facility] [address] [place] [address] Dr. Erasmo Smith Hematocrit (Bld) [Volume fraction] 33.9 % Critically low 36.0-48.[address] [facility] Comment on above: Performed By: #### C MREP #### [facility] [address] [place] [address] Dr. Erasom Smith Hemoglobin (Bld) [Mass/Vol] 10.7 g/dL Critically low 12.0-16.[address] [facility] Comment on above: Performed By: #### C MREP #### [facility] [address] [place] [address] Dr. Erasmo Smith IG # 0.03 10e3/ul Normal 0.00-0.[address] [facility] Comment on above: Performed By: #### C MREP #### [facility] [address] [place] [address] Dr. Erasmo Smith IG % 0.3 % Normal 0.0-0.[address] [facility] Comment on above: Performed By: #### C MREP #### [facility] [address] [place] [address] Dr. Erasmo Smith LYMPH # 2.8 103/ul Normal 1.2-3.[address] [facility] Comment on above: Performed By: #### C MREP #### [facility] [address] [place] [address] Dr. Erasmo Smith Lymphocytes/100 WBC (Bld) 30.6 % Normal 20.5-60.[address] [facility] Comment on above: Performed By: #### C MREP #### [facility] [address] [place] [address] Dr. Erasmo Smith MANUAL DIFF REQ NO Normal [facility] Comment on above: Performed By: #### C MREP #### [facility] [address] [place] [address] Dr. Erasmo Smith MCH (RBC) [Entitic mass] 26.9 pg Normal 26.7-34.[address] [facility] Comment on above: Performed By: #### C MREP #### [facility] [address] [place] [address] Dr. Erasmo Smith MCHC (RBC) [Mass/Vol] 31.6 g/dL Normal 29.9-35.[address] [facility] Comment on above: Performed By: #### C MREP #### [facility] [address] [place] [address] Dr. Erasmo Smith MCV (RBC) [Entitic vol] 85.2 fL Normal 81.0-99.[address] [facility] Comment on above: Performed By: #### C MREP #### [facility] [address] [place] [address] Dr. Erasmo Smith MONO # 0.7 103/ul Normal 0.3-0.[address] [facility] Comment on above: Performed By: #### C MREP #### [facility] [address] [place] [address] Dr. Erasmo Smith Monocytes/100 WBC (Bld) 7.9 % Normal 1.7-12.[address] [facility] Comment on above: Performed By: #### C MREP #### [facility] [address] [place] [address] Dr. Erasmo Smith NEUT # 5.3 103/ul Normal 1.4-6.[address] [facility] Comment on above: Performed By: #### C MREP #### [facility] [address] [place] [address] Dr. Erasmo Smith Neutrophils/100 WBC (Bld) 57.6 % Normal 43.0-75.[address] [facility] Comment on above: Performed By: #### C MREP #### [facility] [address] [place] [address] Dr. Erasmo Smith Platelet mean volume (Bld) [Entitic vol] 9.0 fL Critically low 9.5-13.[address] [facility] Comment on above: Performed By: #### C MREP #### [facility] [address] [place] [address] Dr. Erasmo Smith PLT 249 103/ul Normal 150-450 [facility] Comment on above: Performed By: #### C MREP #### [facility] [address] [place] [address] Dr. Erasmo Smith RBC 3.98 106/ul Critically low 4.20-5.40 [facility] Comment on above: Performed By: #### C MREP #### [facility] [address] [place], [place] [address] Dr. Erasmo Smith WBC 9.1 103/ul Normal 4.0-11.[address] [facility] Comment on above: Performed By: #### C MREP #### [facility] [address] [place], [place] [address] Dr. Erasmo Smith CTA CHEST WO W [...] by: PAULA DELGADO Date: 2022-02-24 18:[address] [facility] D-DIMERon 02-24-2022 D-DIMER 1.36 mg/L FEU Critically high <=0.59 [facility] [place] Comment on above: Performed By: #### D DIM #### [facility] [address] [place] [address] Dr. Erasmo Smith D-DIMER COMMENTS SEE BELOW Normal [facility] Comment on above: Result Comment: Incr [...] hospitalization. Performed By: #### D DIM #### [facility] [address] [place] [address] Dr. Erasmo Smith PROF 14(COMP METB)on 022 Albumin [Mass/Vol] 3.6 g/dL Normal 3.4-5.0 [facility] [place] Comment on above: Performed By: #### C MREP #### [facility] [address] [place] [address] Dr. Erasmo Smith Albumin/Globulin [Mass ratio] 0.8 {ratio} Normal [facility] Comment on above: Performed By: #### C MREP #### [facility] [address] [place] [address] Dr. Erasmo Smith ALP [Catalytic activity/Vol] 95 U/L Normal 46-[address] [facility] Comment on above: Performed By: #### C MREP #### [facility] [address] [place] [address] Dr. Erasmo Smith ALT [Catalytic activity/Vol] 45 U/L Normal 14-[address] [facility] Comment on above: Performed By: #### C MREP #### [facility] [address] [place] [address] Dr. Erasmo Smith Anion gap [Moles/Vol] 15.9 mmol/L Normal [facility] Comment on above: Performed By: #### C MREP #### [facility] [address] [place] [address] Dr. Erasmo Smith AST [Catalytic activity/Vol] 33 U/L Normal 15-[address] [facility] Comment on above: Performed By: #### C MREP #### [facility] [address] [address] [address] Erasmo Smith Bilirubin [Mass/Vol] 0.5 mg/dL Normal 0.2-1.[address] [facility] Comment on above: Performed By: #### C MREP #### [facility] [address] [place] [address] Dr. Erasmo Smith Calcium [Mass/Vol] 9.1 mg/dL Normal 8.5-10.1 [facility] [place] Comment on above: Performed By: #### C MREP #### [facility] [address] [place] [address] Dr. Erasmo Smith Chloride [Moles/Vol] 103 mmol/L Normal 98-[address] [facility] Comment on above: Performed By: #### C MREP #### [facility] [address] [place] [address] Dr. Erasmo Smith CO2 [Moles/Vol] 25.1 mmol/L Normal 21.0-32.0 [facility] Comment on above: Performed By: #### C MREP #### [facility] [address] [place] [address] Dr. Erasmo Smith Creatinine [Mass/Vol] 0.77 mg/dL Normal 0.55-1.[address] [facility] Comment on above: Performed By: #### C MREP #### [facility] [address] [place] [address] Dr. Erasmo Smith EGFR-AF TURKISH >60 Normal >=60 [facility] Comment on above: Performed By: #### C MREP #### [facility] [address] [place] [address] Dr. Erasmo Smith EGFR-NON AF TURKISH >60 Normal >=[address] [facility] Comment on above: Performed By: #### C MREP #### [facility] [address] [place] [address] Dr. Erasmo Smith Globulin (S) [Mass/Vol] 4.3 g/dL Normal [facility] Comment on above: Performed By: #### C MREP #### [facility] [address] [address] [address] Erasmo Smith Glucose [Mass/Vol] 92 mg/dL Normal 74-106 [facility] [place] Comment on above: Performed By: #### C MREP #### [facility] [address] [address] [address] Erasmo Smith Potassium [Moles/Vol] 4.0 mmol/L Normal 3.5-5.[address] [facility] Comment on above: Performed By: #### C MREP #### [facility] [address] [address] [address] Erasmo Smith Protein [Mass/Vol] 7.9 g/dL Normal 6.4-8.2 [facility] Comment on above: Performed By: #### C MREP #### [facility] [address] [address] [address] Erasmo Smith Sodium [Moles/Vol] 140 mmol/L Normal 136-145 [facility] [place] Comment on above: Performed By: #### C MREP #### [facility] [address] [address] [address] Erasmo Smith Urea nitrogen [Mass/Vol] 17.0 mg/dL Normal 7.0-18.[address] [facility] Comment on above: Performed By: #### C MREP #### [facility] [address] [address] [address] Erasmo Smith Urea nitrogen/Creatinine [Mass ratio] 22.1 mg/mg Normal [facility] Comment on above: Performed By: #### C MREP #### [facility] [address] [address] [address] Erasmo Smith PROTIMEon 02-24-2022 INR Coag (PPP) [Relative time] 2.28 {INR} Normal [facility] Comment on above: Performed By: #### P T, PTT ####[facility] [address] [address]Dr. Erasmo Smith INR GUIDELINES SEE BELOW Normal [facility] Comment on above: Result Comment: ABNER RED INR: 2.0 - 3.0 CONDITIONS NOT LISTED BELOW 2.5 - 3.5 FOR PROSTHETIC HEART VALVE REPLACEMENT 2.5 - 3.5 RECURRENT THROMBOSIS Performed By: #### P T, PTT ####[facility] [address] [place], [place] [address]Un. Erasmo Smith PT Coag (PPP) [Time] 23.3 s Critically high 9.0-11.[address] [facility] Comment on above: Performed By: #### P T, PTT ####[facility] [address] [place], [place] [address]ZwDr. Erasmo Smith PTTon 02-24-2022 aPTT Coag (Bld) [Time] 34.7 s Normal 22.3-36.2 Th [facility] Comment on above: Performed By: #### P T, PTT ####[facility] [id number] [place] [id number] Smith TROPONIN, HIGH SENSITIVITYon 02-24-2022 HSTROP 6.6 pg/mL Normal 4.0-51.[address] [facility] Comment on above: Result Comment: CUT- OFF POINTS HAVE BEEN ESTABLISHED BASED ON THE FOURTH UNIVERSAL DEFINITIONS OF MYOCARDIAL INFARCTION. THE UPPER REFERENCE LIMIT (URL) OF TROPONIN, DEFINED THE 99TH PERCENTILE OF cTnI DISTRIBUTION IN A REFERENCE POPULATION, HAS BEEN CONFIRMED THE DECISION THRESHOLD FOR [place] DIAGNOSIS. Performed By: #### C MREP #### [facility] [address] [place], [place] [address] Dr. Erasmo Smith PROTHROMBIN TIMEon INR Coag (PPP) [Relative time] 1.2 {INR} High 0.86-1.16 [facility] Comment on above: Result Comment: INR Theraputic Range: 2.0-3.5 Performed at [facility] [address] [facility] [address] PT Coag (PPP) [Time] 12.7 s Normal 9.3-12.7 [facility] ANTICOAGULANT COUMADIN Normal [facility] Vital Signs Date Time Vital Sign Value Performing Clinician Facility 03-02-2024 11:51-0400 Blood Pressure Location Ortega ALEXANDER [facility] [place] 03-02-2024 11:51-0400 Diastolic blood pressure 75 mm[Hg] Ortega PARKL [facility] [place] 03-02-2024 11:51-0400 Heart rate 71 /min Ortega PARKL [facility] 03-02-2024 11:51-0400 Respiratory rate 16 /min Ortega NILL [facility] [place] 03-02-2024 11:51-0400 Systolic blood pressure 118 mm[Hg] Ortega NILL [facility] 10-07-2021 16:00-0500 Body height 146.69 cm Hong Nevarez Other [facility] Other 10-07-2021 16:00-0500 Body mass index (BMI) [Ratio] 51.01 kg/m2 Hong Nevarez Other [facility] Other 10-07-2021 16:00-0500 Body weight 109.77 kg Hong Nevarez Other [facility] Other 08-26-2021 15:15-0500 Body height 146.69 cm Hong Nevarez Other [facility] Other 08-26-2021 15:15-0500 Body mass index (BMI) [Ratio] 51.07 kg/m2 Hong Jimenezkes Other [facility] Other 08-26-2021 15:15-0500 Body weight 109.91 kg Hong Jimenezkes Other [facility] Other Encounters Encounter Date Encounter Type Care Provider Facility Start: 04-16-2024 End: 04-16-2024 ambulatory PEDRO PABLO BARROW Not Available Start: 04-11-2024 End: 04-11-2024 ambulatory SHAIKH CIRA Not Available Start: 04-10-2024 End: 04-10-2024 Patient encounter procedure MD Shaikh Denis Work Phone: [facility] [place] Work Phone: Start: 04-10-2024 End: 04-10-2024 ambulatory MD Shaikh Denis Work Phone: [facility] Work Phone: Start: 04-02-2024 End: 04-02-2024 ambulatory Miguel Murphy MD Facility:[facility] Start: 03-29-2024 End: 03-29-2024 Patient encounter procedure MD Shaikh Denis Work Phone: [facility] Check Start: 03-29-2024 End: 03-29-2024 ambulatory MD Shaikh Denis Work Phone: [facility] Work Phone: Start: 03-12-2024 End: 03-12-2024 ambulatory SHAIKH CIRA Not Available Start: 03-07-2024 End: 03-07-2024 ambulatory Ortega ALEXANDER Facility:CD:[id number] Start: 03-02-2024 End: 03-02-2024 ambulatory Ortega ALEXANDER Facility:[facility] Start: 03-02-2024 End: 03-02-2024 Patient encounter procedure Ortega ALEXANDER [facility] [place] Start: 03-01-2024 ambulatory Ortega ALEXANDER Facility:[facility] Start: 02-27-2024 End: 02-27-2024 ambulatory SHAIKH CIRA Not Available Start: 01-17-2024 End: 01-17-2024 ambulatory NICANOR [facility] Start: 12-29-2023 End: 12-29-2023 ambulatory SHAIKH CIRA Not Available Start: 12-27-2023 End: 12-27-2023 ambulatory YANCY [facility] Start: 12-26-2023 End: 12-26-2023 ambulatory Miguel Murphy MD Facility:[facility] Start: 12-05-2023 End: 12-05-2023 ambulatory Miguel Murphy MD Facility:[facility] Start: 11-16-2023 End: 11-16-2023 ambulatory Shaikh Cira Facility:[facility] Start: 11-07-2023 End: 11-07-2023 ambulatory SHAIKH CIRA Not Available Start: 10-17-2023 Cristobal Denis MD Work Phone: [facility] Start: 10-17-2023 Cristobal Denis MD Work Phone: [facility] Start: 10-17-2023 End: 10-17-2023 ambulatory SHAIKH CIRA Not Available Start: 10-11-2023 End: 10-11-2023 ambulatory MD Shaikh Denis Work Phone: [facility] Work Phone: Start: 10-11-2023 End: 10-11-2023 Patient encounter procedure MD Shaikh Denis Work Phone: [facility] [place] Work Phone: Start: 09-08-2023 End: 09-08-2023 Patient encounter procedure MD Shaikh Denis Work Phone: [facility] Start: 09-08-2023 End: 09-08-2023 ambulatory MD Shaikh Denis Work Phone: [facility] Work Phone: Start: 09-06-2023 End: 09-06-2023 ambulatory SHAIKH CIRA Not Available Start: 09-06-2023 Patient encounter procedure Shaikh Cira CUBA Work Phone: [facility] Start: 07-08-2023 End: 07-08-2023 ambulatory [facility] Start: 07-05-2023 End: 07-05-2023 ambulatory [facility] Start: 04-11-2023 End: 04-11-2023 ambulatory Andrius Caseyautas Katherine CUBA Facility:[facility] Start: 01-31-2023 End: 02-01-2023 ambulatory ANDRIUS GIEDRAITIS Facility:[facility] Start: 01-28-2023 End: 01-29-2023 ambulatory ANDRI GIOLIVE Facility:[facility] Start: 01-10-2023 End: 02-09-2023 ambulatory SHAIKH [...] Facility:[facility] Start: 07-13-2022 End: 08-11-2022 ambulatory Kymberly SHAINAAlysa Facility:[facility] Start: 07-12-2022 End: 07-13-[address] [...] 10-07-2021 End: 10-07-2021 ambulatory Hong Nevarez Other [facility] Other Start: 10-07-2021 Office outpatient visit 15 minutes Hong Nevarez [facility] Start: 08-26-2021 End: 08-26-2021 ambulatory Hong Nevarez Other [facility] Other Start: 08-26-2021 Office outpatient ne w 45 minutes Hong Nevarez [facility] Start: 10-11-2020 End: 10-13-2020 Evaluation and management of inpatient ZANEJennifer MCGUIRE Facility:[facility] Procedures Date Procedure Procedure Detail Performing Clinician Start: 10-11-2023 XR pre/post mri xrfrida Denis Work Phone: Start: 10-11-2023 MR lumbar [...] on above: 06/2012 Arthroscopy of shoulder Brice PARKL Comment on above: left shoulder tear r epaired 08/25 Cardiac catheter (ph ysical object) Ortega PARKL Comment on above: 12/21/ mild CAD Colonoscopy Ortega PARKL Comment on above: 2012 repeat 10 years Ligation of fallopian tube Nathan PARKL Repair of musculoten dinous cuff of shoulder Ortega NILL Comment on above: right Total abdominal hyst erectomy with bilateral salpingo-oophorectomy Ortega PARKL Plan of Treatment Date Care Activity Detail Author Start: 09-12-2027 Screening for malign ant neoplasm of colon [facility] Start: 09-06-2024 Medicare Annual Well ness (AWV) Medicare Annual Wellness (AWV) [facility] Start: 11-07-2023 End: 11-07-2023 Patient encounter procedure 11/07/2023 2:30 PM EST Office Visit [facility] [address] [place] [id number] Shaikh Denis MD [address] [place] [id number] [facility] Start: 10-17-2023 End: 10-17-2023 Patient encounter procedure 10/17/2023 10:15 AM EST Office Visit [facility] [address] [place] [address] Shaikh Denis MD [address] [place] [address] Arrived [facility] Comment on above: Arrived Start: 1945 Screening for malign ant neoplasm of colon [facility] Immunizations Immunization Date Immunization Notes Care Provider Fa [facility] 08-25-2023 influenza virus vacc ine, unspecified formulation Ortega ALEXANDER [facility] [place] 07-08-2022 influenza virus vacc ine, unspecified formulation Ortega ALEXANDER [facility] 08-20-2021 influenza virus vacc ine, unspecified formulation Ortega ALEXANDER [facility] 08-20-2021 pneumococcal polysaccharide vaccine, 23 valent Ortega ALEXANDER [facility] 11-18-2020 SARS-CoV-2 (COVID-19 ) mRNA-1273 vaccine Ortega NILL [facility] 10-20-2020 SARS-CoV-2 (COVID-19 ) mRNA-1273 vaccine Ortega PARKL [facility] 08-04-2020 influenza virus vacc ine, unspecified formulation Ortega NILL [facility] 08-04-2020 pneumococcal conjuga te vaccine, 13 valent Ortega NILL [facility] 08-06-2019 influenza virus vacc ine, unspecified formulation Ortega NILL [facility] 07-05-2017 influenza virus vacc ine, unspecified formulation Ortega NILL [facility] 07-05-2017 pneumococcal conjuga te vaccine, 13 valent Ortega NILL [facility] 06-29-2016 influenza virus vacc ine, unspecified formulation Ortega NILL [facility] 06-25-2015 influenza virus vacc ine, unspecified formulation Ortega NILL [facility] 06-12-2015 influenza virus vacc ine, unspecified formulation Ortega NILL [facility] 07-12-2014 influenza virus vacc ine, unspecified formulation Ortega NILL [facility] 08-07-2013 influenza virus vacc ine, unspecified formulation Ortega NILL [facility] Payers Date Payer Category Payer Medicare [id number] 2023 Self-pay [id number] 2023 Managed Care O (unspecified) [employer]ET[employer] AETNA [id number] 2023-Present [address] [place] [address] [facility] [id number]. [id number] 2022 Private Health Insurance 2007 Medicare [id number]. [id number] 1959 Medicare [id number] 1959 Private Health Insurance [facility] [id number] 1947 Unknown [id number] 2.16.840.1.690728.3.579.2. 647 1947 Unknown [id number] 2.16.840.1.706495.3.579.2. 593 1947 Unknown [id number] 2.16.840.1.403080.3.579.2. 593 1947 Unknown [id number] 2.16.840.1.274687.3.579.2. 593 1947 Unknown [id number] 2.16.840.1.528201.3.579.2. 593 1947 Unknown [id number] 2.16.840.1.593956.3.579.2. 593 1947 Unknown [id number] 2.16.840.1.934541.3.579.2. 593 1947 Unknown [id number] 2.16.840.1.283511.3.579.2. 593 1947 Unknown [id number] 2.16.840.1.993701.3.579.2. 593 1947 Unknown [id number] 2.16.840.1.735120.3.579.2. 593 1947 Unknown [id number] 2.16.840.1.863655.3.579.2. 593 1947 Unknown [id number] 2.16.840.1.112437.3.579.2. 593 1947 Unknown [id number] 2.16.840.1.166012.3.579.2. 593 1947 Unknown [id number] 2.16.840.1.918066.3.579.2. 593 1947 Unknown [id number] 2.16.840.1.306133.3.579.2. 593 1947 Unknown [id number] 2.16.840.1.349562.3.579.2. 593 1947 Unknown [id number] 2.16.840.1.815913.3.579.2. 593 1947 Unknown [id number] 2.16.840.1.954958.3.579.2. 593 1947 Unknown [id number] 2.16.840.1.280578.3.579.2. 593 1947 Unknown [id number] 2.16.840.1.956965.3.579.2. 593 1947 Unknown [id number] 2.16.840.1.960485.3.579.2. 593 1947 Unknown [id number] 2.16.840.1.002837.3.579.2. 593 1947 Unknown [id number] 2.16.840.1.574768.3.579.2. 593 1947 Unknown [id number] 2.16.840.1.213904.3.579.2. 593 1947 Unknown [id number] 2.16.840.1.943152.3.579.2. 593 1947 Unknown [id number] 2.16.840.1.732285.3.579.2. 593 1947 Unknown [id number] 2.16.840.1.153003.3.579.2. 593 1947 Unknown [id number] 2.16.840.1.725406.3.579.2. 727 1947 Unknown [id number] 2.16.840.1.238961.3.579.2. 727 1947 Unknown [id number] 2.16.840.1.390316.3.579.2. 196 1947 Unknown [id number] 2.16.840.1.794298.3.579.2. 196 1947 Unknown [id number] 2.16.840.1.715961.3.579.2. 196 1947 Unknown [id number] 2.16.840.1.509695.3.579.2. 196 1947 Unknown [id number] 2.16.840.1.983193.3.579.2. 1259 1947 Unknown [id number] 2.16.840.1.432843.3.579.2. 1259 1947 Unknown [id number] 2.16.840.1.995080.3.579.2. 1259 1947 Unknown [id number] 2.16.840.1.707429.3.579.2. 1259 1947 Unknown [id number] 2.16.840.1.576384.3.579.2. 1259 1947 Unknown [id number] 2.16.840.1.724897.3.579.2. 1259 1947 Unknown [id number] 2.16.840.1.285607.3.579.2. 1259 1947 Unknown [id number] 2.16.840.1.803683.3.579.2. 1259 1947 Unknown [id number] 2.16.840.1.973351.3.579.2. 1259 1947 Unknown [id number] 2.16.840.1.231280.3.579.2. 1259 Medicare Medicare Outpatient [id number] Unknown [facility] [id number] Unknown [id number] 2.16.840.1.877341.3.579.2. 531 Unknown [id number] 2.16.840.1.021451.3.579.2. 531 Unknown [id number] 2.16.840.1.457255.3.579.2. 531 Unknown [id number] 2.16.840.1.999200.3.579.2. 531 Unknown [id number] 2.16.840.1.583122.3.579.2. 531 Social History Date Type Detail Facility Start: 08-30-2023 End: 09-06-2023 Sex Assigned At [facility] Start: 1945 Sex Assigned At Female F [facility] Start: 08-18-2023 End: 03-02-2024 Tobacco smoking status [facility] Ex-smoker [facility] History of tobacco use Current smoker [facility] History of tobacco use Cigarette [facility]oker [facility] Start: 09-02-2023 Alcohol intake Not Asked [facility] Start: 08-30-2023 End: 09-06-2023 History of Social function [facility] Within the last year , have you been afraid of your partner or ex-partner? No [facility] How often do you att end mormon or taoism services? Patient refused [facility] Do you belong to any clubs or organizations such as mormon groups, unions, fraternal or athletic groups, or [...] Start: 08-18-2023 Alcohol Comment (Audit-C) : Negative [facility] Start: 1945 Sex Assigned At Not on file [facility] Start: 04-27-2013 Tobacco smoking stat us NHIS Never smoked tobacco (finding) [facility] Functional Status Date Assessment Result Facility 03-02-2024 Functional Status N/A [facility] [place] Clinical Notes 08-26-2021 to 03-02-2024 Note Date & Type Note Facility 03-02-2024 Note Chief Complaint consultation for anemia HPI Staff 78 year old female presents on consultation from [facility] for anemia. Labs completed yesterday with [...] PSVT, spinal stenosis, cervical radiculopathy; referred from [facility] for anemia, low iron, and [...] supraventricular t (more content not included)... [facility] Comment on above: Result Comment: Elec tronically Signed By: CATHERINE CUBA, Ortega Baeza.juan pablo\Date and Time Signed: 03/02/24 13:01 EDT 01-17-2024 [...] All other systems reviewed and are negative. [facility] 01-17-2024 Note Cardiovascular Medic [facility] SUBJECTIVE Chief Complaint Patient presents with Atrial Fibrillation Breann Starks is a 78 y.o. female here for follow-up. HPI PMHx: A-fib, atrial tachycardia s/p ablation 2005, sick sinus syndrome s/p PPM 10/2020 dual-chamber [employer], COPD, mild CAD s/p cardiac cath 2010, SHAWANDA noncompliant with mask, and obesity. She has been doing well since last seen. No significant changes. Denies c/o CP, dyspnea, orthopnea, PND, LE edema, dizziness/LH, palpitations, syncope. Patient Active Problem List Diagnosis Disorder of bursae of shoulder region Chronic obstructive lung disease (CMS/HCC) Atherosclerosis of [place] coronary artery of [place] heart without angina pectoris Diaphragmatic hernia Edema [...] Final Monocytes Absolu (more content not included)... [facility] 07-05-2023 Note [place] Electrophysiology Consult Note Reason for visit: Afib. [...] sick sinus syndrome s/p PPM 10/2020 dual-chamber [employer], COPD, mild CAD s/p cardiac cath [...] could not afford DOAC. Patient underwent dual-chamber [employer] pacemaker placement on 10/13/2020. On subsequent [...] both knees Hypocalcemi (more content not included)... [facility] 10-07-2021 Evaluation note Encounter Date Diagnosis Assessment Notes Sep, LOJA (nonalcoholic steatohepatitis ) (ICD-10 - K75.81) OBTAIN FIBROSURE RESULTS FROM [facility] ON RESULTS PT ENCOURAGED WEIGHT LOSS RTO ONE YEAR WITH LABS ANNUALLY Sep, Unspecified cirrhosis of liver (ICD-10 - K74.60) [facility] Other 12-15-2021 Evaluation note* Encounter Date Diagnosis Assessment Notes Treatment Notes Treatment Clinical Notes Aug, Nonalcoholic steatohepatitis (LOJA) (ICD-10 - K75.81) RTO 6-8 WEEKS Aug, Unspecified cirrhosi s of liver (ICD-10 - K74.60) Aug, Morbid obesity (ICD- 10 - E66.01) [facility] Other Evaluation + Plan note No data available for this section [facility] [place] Evaluation noteNo assessment information available [facility] Work Phone: History general Narrative - Reported* [...] Surgical History pacemaker Hospitalization History see above [facility] [employer] Other Hospital Discharge instructions No data available for this section [facility] [place] Progress note No data available for this section [facility] [place] Summary Purpose Family History No Family History [...] and content) DATE CREATED AUTHOR 10/23/2021 [facility] DATE CREATED AUTHOR AUTHOR'S ORGANIZ ATION 01/22/2022 [facility] DATE CREATED AUTHOR AUTHOR'S ORGANIZ ATION 02/18/2023 [facility] pital DATE CREATED AUTHOR AUTHOR'S ORGANIZ ATION 03/08/2024 [facility] DATE CREATED AUTHOR AUTHOR'S ORGANIZ ATION 03/11/2024 [facility] DATE CREATED AUTHOR AUTHOR'S ORGANIZ ATION 04/07/2024 [facility] DATE CREATED AUTHOR AUTHOR'S ORGANIZ ATION 04/18/2024 [facility] DATE CREATED AUTHOR AUTHOR'S ORGANIZ ATION 04/22/2024 [facility] EPIC REASON FOR VISIT [...] October 11, 2023 End: October 11, 2023 [employer]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 [facility]. provides no warranty or guarantee of the accuracy or completeness of information in this document.
--- NOTE | 2024-04-25 13:04 | P.CN_ITS ---
Consult Note: HPI Data of Consult Patient: known to practice within the last 3 years Consult date: 11/24/23 Requesting Physician: Claire Clement NP Primary Care Provider: Shaikh Cira MD Consult Narrative Reason for consult: f/u Narrative: Breann Starks a pleasant 77 year old female presents for evaluation and manag ement of chronic low back pain with radiculopathy and NC. MRI of lumbar spine consistent with degenerative changes and lumbar stenosis. Patient following with NS who recommended ESIs prior to surgical intervention. Pt has failed PT/HEP greater than 6 weeks and conservative medications. Pain today 0/10 in low back. Continues to follow with orthopedics for left shoulder pain/injury. Patient recently underwent left L4/5 L5/S1 TFESI and left SIJ injection with 100% improvement ongoing per pt. Finds benefit to baclofen 10mg TID PRN pain/spasms. cc:: CC: Claire Clement NP Review of Systems ROS Status of ROS 10 or more systems reviewed and unremark able except as noted in history and below Musculoskeletal Reports: joint pain PFSH PFSH Medical History (Updated 03/14/24 @ 09:37 by Claire Clement NP) Arthritis ?M19.90 - Unspecified osteoarthritis, unspecified site (ICD-10) Chronic obstructive pulmonary disease ?J44.9 - Chronic obstructive pulmonary disease, unspecified (ICD-10) Peptic ulcer ?K27.9 - Peptic ulcer, site unspecified, unspecified as acute or chronic, without hemorrhage or perforation (ICD-10) Dyspnea on exertion ?R06.09 - Other forms of dyspnea (ICD-10) Anemia ?D64.9 - Anemia, unspecified (ICD-10) Hypertension ?I10 - Essential (primary) hypertension (ICD-10) Extremity edema ?R60.0 - Localized edema (ICD-10) Congestive heart failure ?I50.9 - Heart failure, unspecified (ICD-10) Atrial fibrillation ?I48.91 - Unspecified atrial fibrillation (ICD-10) Shoulder pain ?M25.519 - Pain in unspecified shoulder (ICD-10) Fatty liver ?K76.0 - Fatty (change of) liver, not elsewhere classified (ICD-10) History of shingles ?Z86.19 - Personal history of other infectious and parasitic diseases (ICD- 10) Osteoarthritis ?M19.90 - Unspecified osteoarthritis, unspecified site (ICD-10) Pacemaker ?Z95.0 - Presence of cardiac pacemaker (ICD-10) Hiatal hernia ?K44.9 - Diaphragmatic hernia without obstruction or gangrene (ICD-10) Low back pain ?M54.50 - Low back pain, unspecified (ICD-10) Irregular heart beat ?I49.9 - Cardiac arrhythmia, unspecified (ICD-10) Surgical History History of shoulder replacement ?Z96.619 - Presence of unspecified artificial shoulder joint (ICD-10) S/P rotator cuff repair ?Z98.890 - Other specified postprocedural states (ICD-10) History of colonoscopy ?Z98.890 - Other specified postprocedural states (ICD-10) S/P YANELI-BSO ?Z90.710 - Acquired absence of both cervix and uterus (ICD-10) ?Z90.722 - Acquired absence of ovaries, bilateral (ICD-10) ?Z90.79 - Acquired absence of other genital organ(s) (ICD-10) H/O cardiac catheterization ?Z98.890 - Other specified postprocedural states (ICD-10) H/O arthroscopy of shoulder ?Z98.890 - Other specified postprocedural states (ICD-10) H/O arthroscopy of knee ?Z98.890 - Other specified postprocedural states (ICD-10) History of appendectomy ?Z90.49 - Acquired absence of other specified parts of digestive tract (ICD- 10) History of total knee arthroplasty ?Z96.659 - Presence of unspecified artificial knee joint (ICD-10) Social History Within the past year, how often did you have a drink containing alcohol: monthly or less Smoking status: Former smoker Non-prescribed substance use: denies use Previous occupational history: retired Highest level of school completed/degree received: high school graduate Meds Home Medications and Allergies Home Medications ?Medication ?Instructions ?Recorded ?Confirmed ?Type cholecalciferol (vitamin D3) 125 5,000 unit PO DAILY 02/16/23 04/16/24 History mcg (5,000 unit) tablet (Vitamin D3) flecainide 100 mg tablet 100 mg PO Q12H 02/16/23 04/16/24 History omeprazole 40 mg capsule,delayed 40 mg PO DAILY 02/16/23 04/16/24 History release spironolactone 25 mg tablet 25 mg PO DAILY 02/16/23 04/16/24 History (Aldactone) verapamil 180 mg tablet,extended 180 mg PO Q12H 02/16/23 04/16/24 History release (Calan SR) apixaban 5 mg tablet (Eliquis) 5 mg PO BID 05/11/23 04/16/24 History baclofen 10 mg tablet 10 mg PO TID #90 tabs 02/15/24 04/16/24 Rx hydrocodone 5 mg-acetaminophen 325 1 tab PO BID #6 tabs 02/15/24 04/16/24 Rx mg tablet furosemide 40 mg tablet 40 mg PO DAILY 03/01/24 04/16/24 History tramadol 50 mg tablet 50 mg PO QPM 03/06/24 04/16/24 History Allergies Allergy/AdvReac Type Severity Reaction Status Date / Time No Known Drug Allergies Allergy Verified 04/16/24 08:36 Exam Constitutional Documenting provider has reviewed patient's vital signs: yes Common normals: no apparent distress, oriented x3, healthy appearing, alert and well nourished General appearance: cooperative Nutritional appearance: overweight HENMT Common normals: normocephalic, hearing grossly normal bilaterally and moist oral mucous membranes Head and scalp: normocephalic Eye Common normals: PERRL Pupil: PERRL Neck & C-Spine Common normals: full ROM General: normal visual inspection Chest Common normals: inspection of chest normal Respiratory Common normals: normal respiratory effort, no retractions and no use of accessory muscles Back & Pelvis Common normals: no CVA tenderness, thoracic and lumbar spine normal to inspection, no thoracic nor lumbar tenderness and thoraco-lumbar ROM normal Lumbar spine/lower back: normal to inspection, lumbar ROM normal and straight leg raise negative bilaterally Sacroiliac joints: SI joints normal Other: left SIJ negative letitia(patricks), gaenslens, thigh thrust, compression test sensation intact BLE strength 5/5 in BLE Extremity Common normals: normal to inspection and full ROM Neuro Common normals: oriented x3, CN's II-XII intact bilaterally, moves all extremities, no focal motor deficits, no sensory deficits noted and deep tendon reflexes 2+ bilaterally Sensorium/orientation: alert Speech: speech normal Gait (neuro): normal gait Motor exam: strength 5/5 throughout and no movement abnormalities noted Other: sensation intact BUE BLE Psych Common normals: mental status grossly normal, thought process normal, cooperative, affect normal, speech normal and activity/motor behavior normal Speech: normal speech Thought process: normal thought process Results Additional Findings Additional findings: If on a controlled substance or opioids, I have checked an [place] report on this patient and there are no aberrancies noted in the prescribing history.??If on a controlled substance or opioid a drug screen was completed and reviewed within the last year, and if there has not been a drug screen completed we ordered one today to monitor higher risk, state monitored pain medication use. As part of providing excellent, safe, comprehensive care, the following was comp leted at our patient's visit: 1. A medication reconciliation and review to ensure accurate knowledge of current/active medications, including asking our patients to inform us about any [id number] medications or herbal remedies/nutritional supplements/alternative remedies. 2. A review to specifically ensure our patients have had annual screening for screening for depression, screening for tobacco use, and screening for unhealthy alcohol use. For concerning screenings had a discussion with the patient, provided patient education, and recommended follow-up with primary care provider when appropriate. If patient noted with a risk of falling, they received education on strength, gait, and balance training to prevent future risk of falling. Assessment and Plan Assessment and Plan (1) Lumbar stenosis with neurogenic claudication: (2) Sacroiliitis: Plan patient reporting significant improvement from recent injetions continue medications through PCP, finding benefit to norco 5-325mg TID PRN and baclofen 10mg TID PRN continue f/u with orthopedics for left shoulder pain/injury f/u 3 months, sooner if needed
== END 2024-04-25 12:50 | disposition home or self-care (01) ==
LOC: PM 12:50
PROVIDERS: PCP Internal Medicine; Visit Provider Nurse Practitioner
DX: M48.062 Spinal stenosis, lumbar region with neurogenic claudication (principal); M46.1 Sacroiliitis, not elsewhere classified
CPT/HCPCS: G0463

== ENCOUNTER 2024-05-09 08:23 | Outpatient (OUT) | payer MEDICARE, SELFPAY ==
--- OUTSIDE RECORDS SUMMARY | 2024-05-09 08:50 | XMS_ITS | CCD ---
Author Organization [facility] Care Team Providers Care Mate Relief Name Role Phone ZANE MCGUIRE Admitting Unavailable YANCY MAHAN Referring Unavailable LUISANA FISHER Primary Care Unavailable ZANE MCGUIRE Attending Unavailable YANCY MAHAN Surgeon Unavailable NE Procedure Practitioner Unavailab Hong Adler Unavailable FISHER [...] SAMSA ., LUIZ Attending Unavailable ZIEBER, DR PAUAL Bishop Consulting Unavailable FISHER ., DR LUISANA [...] Unavailpriyanka herbert RIVER ., KAYLEY Admitting Unavailable RIEVR ., KAYLEY Attending Unavailable ZILLAH, DR HONG Morgan Consulting Unavailable FISHER ., [...] Herbert Attending Unavailable FISHER ., DR LUISANA Herebrt Consulting Unavailable GIEDRAITIS, ANDRIUS Consulting Unavailable GIEDRAITIS, ANDRIUS Admitting Unavailable GIEDRAITIS, ANDRIUS Attending Unavailable HERSON CANTU Primary Care Unavailable FISHER ., DR LUISANA Herbert Primary Care Unavailable FASILVANA, H Attending Unavailable FASILVANA, CAMACHO H Admitting Unavailable SAMSA ., LUIZ Admitting Unavailable SAMSA ., LUIZ Attending Unavailable SAMSA ., LUIZ Consulting Unavailable FISHER ., DR LUISANA Herbert Primary Care Unavailable THANG Clement Attending Provider [phone] MD Janice Denis Primary Care Provider [phone] THANG Clement Attending Provider [phone] Cira CUBA Camacho Primary Care Provider YANCY MAHAN Referring Unavailable YANCY MAHAN Attending Unavailable YANCY MAHAN Referring Unavailable NICANOR CANNON Attending Unavailable Ortega ALEXANDER Attending Unavailable SHAIKH DENIS Referring Unavailable Ortega ALEXANDER Attending Unavailable MD Santos Denisikh Primary Care Provider DO James Jones Attending Provider SHAIKH DENIS Attending Unavailable CIRA, Attending Unavailable FASILVANA, Attending Unavailable CIRA, Attending Unavailable CIRA, Attending Unavailable CIRA, Attending Unavailable SHAIKH DENIS Attending Unavailable PEDRO PABLO CRUZ Attending Unavailable PEDRO PABLO CRUZ Referring Unavailable Giedraitis , Andrius Sainz Attending Unavailable Giedraitis , Andrius Alistair Attending Unavailable Giedraitis , Andrius Alistair Attending Unavailable Giedlobito CUBA, Andrius Alistair Attending Unavailable YOLY Cruz Attending Provider Shaikh Denis Primary [facility] Unavailable Kayley Reeder Admitting Unavailable Kayley Reeder Attending Unavailable [facility] Care Unavailable James Jones Admitting Unavailable James Jones Attending Unavailable [facility] Care Unavailable James Jones Admitting Unavailable James Jones Attending Unavailable [facility] Care Unavailable Pedr oPablo Cruz Admitting Unavailable Pedro Pablo Cruz Attending Unavailable [facility] Unavailable Urbano, Claire E Admitting Unavailable Urbano, Claire E Attending Unavailable [facility] Unavailable Urbano, Claire E Admitting Unavailable Urbano, Claire E Attending Unavailable Allergies Allergy Classification Reported Allergen(s) Allergy Type Date of Onset Reaction(s) Facility NSAIDs (1 source) meloxicam; Translations: [Mobic] Drug Allergy [facility] Repository Unclassified (1 source) No Known Medication Allergies; Translations: [No Known Medication Allergies] Propensity to adverse reactions (disorder) [facility] Repository (1 source) novacaine; Translations: [novacaine] Propensity to adverse reactions (disorder) 2 [facility] Repository (2 sources) NSAIDs Propensity to adverse reactions HEART ISSUES [employer] Other (4 sources) Adhesive agent; Translations: [adhesive] Allergy to substance [address] [facility] (4 sources) NSAIDS (Non-Steroidal Anti-Inflamma; Translations: [NSAIDS (Non-Steroidal Anti-Inflamma] Allergy to substance [address] HEART ISSUES [facility] Medications Current Medications Medication Drug Class(es) Dates Sig (Normalized) Sig (Original) acetaminophen 325 mg / HYDROcodone bitartrate 5 mg oral tablet (1 source) Opioid Agonist Start: 03-01-2024 take 1 tablet by mouth twice daily acetaminophen-hyd rocodone 325 mg-5 mg oral tablet 1 tab(s), Oral, BID, Refill(s) 0 Start Date: 03/01/24 Status: Ordered apixaban 5 mg oral tablet (5 sources) Factor Xa Inhibitor Start: 11-16-2023 take [...] Status: Ordered cholecalciferol 0.125 mg oral tablet (3 sources) Vitamin D Start: 2023 Cholecalciferol (Vitamin D3) Active 5000 UNIT PO November 16, 2023 1:00am flecainide acetate 100 mg oral tablet (7 sources) Antiarrhythmic Start: 2022 Flecainide Active 100 [...] 03/01/24 Status: Ordered take 1 tablet by [facility] every twenty-four hours Furosemide 20 MG 1 [...] tablet Orally Once a day Active Lidocaine (6 sources) Antiarrhythmic, Amide Local Anesthetic Start: 11-18-2023 [...] omeprazole 40 mg delayed release oral capsule (7 sources) Proton Pump Inhibitor Start: 023 Omeprazole Active 40 MG PO November 16, 2023 1:00am take 1 capsule by [facility] every twenty-four hours Omeprazole 40 MG 1 capsule Orally Once a day Active potassium chloride 10 meq extended release oral capsule (2 sources) take 1 capsule by mouth every twenty-four hours Potassium Chloride 10 MEQ 1 capsule with food Orally Once a day Active spironolactone 25 mg oral tablet (5 sources) Aldosterone Antagonist Start: 024 Spironolactone Active 25 MG PO November 16, 2023 1:00am take 1 tablet [facility] sp[facility]one (Aldactone) 25 MG tablet Take 25 mg by mouth in the morning. 0 Active 24 hr verapamil hydrochloride 180 mg extended release oral capsule (7 sources) Calcium Channel Ozzy Start: 03-01-2024 take [...] 02/14/2024 Active take 1 capsule by mo uth every twenty-four hours Verapamil HCl ER 360 [...] Daily, # 90 tab(s), Refills(s) 0, Pharmacy: [facility]/pharmacy #[id number], 141, cm, 01/11/23 10:30:00 EDT, Height/Length [...] disease (3 sources) Atherosclerotic heart disease of ambler coronary artery without angina pectoris; Translations: [Coronary [...] Encounter for therapeutic drug level monitoring; Translations: [[facility] DRUG LEVL MONITORING] Onset: 3 Episodic Other aftercare (1 source) alf (current) use of anticoagulants; Translations: [[facility] USE 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] Onset: 3 Episodic Other aftercare (1 source) Other snf (current) drug therapy; Translations: [OTH [facility] CURRENT DRUG THERAPY] Onset: 3 Episodic Other [...] Spondylosis; intervertebral disc disorders; other back problems (15 sources) Cervical spondylosis; Translations: [Spondylosis without myelopathy [...] disorders; other back problems (13 sources) Cervical radiculopathy; Translations: [Radiculopathy, cervical region] Onset: 03-01-2023 09-06-2023 Episodic Superficial injury; contusion (2 sources) Contusion of shoulder region; Translations: [Contusion of left shoulder, initial encounter] Episodic Unclassified (1 source) LOW BACK PAIN, UNSPECIFIED; Translations: [LOW BACK PAIN, UNSPECIFIED] Onset: 01-28-2023 Unclassified (1 source) COUGH, UNSPECIFIED; Translations: [COUGH, UNSPECIFIED] Onset: 03-30-2022 Results Test Name Value Interpretation Reference Range Facility [place] bone 3 phaseon 05-02-2024 WI bone 3 phase [facility] [place] [address] Nuclear Medicine Report Signed Patient: Breann Starks MR#: [id number] 171 : 1945 Acct:[id number] Age/Sex: 78 / F ADM Date: 05/02/24 Loc: [place] Room: Type: [facility] Attending Dr: Pedro Pablo Cruz PA-C Copies to: YOLY Sanon Jeffrey S DO Ordering Provider: Pedro Pablo Cruz PA-C Date of Service: 05/02/24 WI/WI bone 3 phase: M25.512, Z96.612 Nuclear medicine 3 phase bone scan of the left shoulder TECHNIQUE: 23.6mCi of technetium 99m labeled MDP was administered. Three-phase imaging of the left shoulder. COMPARISON: None HISTORY: Fell injuring left shoulder. Pain for 3 months. Assessment for prosthetic loosening Findings: Left shoulder arthroplasty findings. No focal uptake of the glenoid. This may be postoperative. Loosening may be present this region. There is uptake in the acromium greatest on the left. This may be degenerative. Plain film correlation. No hyperemia. NM/NM bone 3 phase IMPRESSION: Increased uptake of the left the glenoid. There may be concern for loosening. Correlate with plain film imaging. Increased uptake of the left acromion. May represent degenerative change. Fracture may be present in this region. Correlate with plain film imaging. Impression dictated by: Etienne Rhodes M.D.05/02/2024 2:44 PM Dictation Location: [place] [address] Transcribed By: [facility] 05/02/24 144 Dictated By: Etienne Rhodes DO 05/02/24 1440 Signed By: 05/02/24 1444 Normal [facility] Lab Reportson 03-07-2024 Lab Reports [id number] #1.00TIFF Normal [facility] 36on 03-06-2024 36 Echo from 03/05/2024 reviewed [...] to her pharmacy. BMP order faxed to [facility]. Breann verbalized understanding. Normal [facility] Consent for Procedure/Surger yon 03-05-2024 Consent for Procedure/Surgery [id number] #1.00TIFF Normal [facility] Ambulatory Visit Summaryon 0 03-02-2024 Ambulatory Visit Summary BREANN STARKS :1945 Visit Date:03/02/2024 Ambulatory Visit Instructions Your Care Team Attending Physician - CATHERINE CUBA, Ortega Bishop Primary Care Physician - Cate JUÁREZ, Barbara Lemus Referring Physician - SHAIKH DENIS MD This Is Your Medications List Contact prescribing [...] for choosing us for your care. Normal [facility] ED Note-Physicianon 03-02-20 24 ED Note-Physician [id number]# 1.00TIFF [facility] Insurance Correspondenceon 0 03-02-2024 Insurance Correspondence [id number]#1.00TIFF [facility] Lab Reportson 03-02-2024 Lab Reports [id number] #1.00TIFF [facility] 36on 01-25-2024 36 Patient called stating ever since her device was adjusted last month she's had this weird feeling in her throat. I called Sony Asif from [employer] and he told me this feeling she's having should not be from her device. Patient informed. I suggested she see PCP for this. She verbalized understanding. Normal [facility] Office Visiton 01-17-2024 Follow-up visit [id number] Breann Starks 1945 F Date Provider Department Center 01/17/2024 NICANOR REGAN Family History Adopted: Yes Family history unknown: Yes Family Status - Relation Status Age at Mother Father Level of Service:39861 NE OFFICE/OUTPATIENT ESTABLISHED MOD [facility] 30 MIN Reason for Visit and Comments: Atrial Fibrillation [80] Normal [facility] XR lumbar spine 6V w bending on 11-16-2023 XR lumbar spine 6V w bending [facility] [address] [address] [place] [address] XRay Report Signed Patient: Breann Starks MR#: [id number] 171 : 1945 Acct:[id number] Age/Sex: 77 / F ADM Date: 11/16/23 Loc: XD Room: Type: [facility] Attending Dr: Kayley PASCALC Copies to: THANG [...] Benton Jr., D.O.11/16/2023 4:37 PM Dictation Location: [place] [address] Transcribed By: [facility] 11/16/23 1637 Dictated By: Francisco J Benton Jr, DO 11/16/23 1636 Signed By: 11/16/23 1637 [facility] MR lumbar spine wo marii MR lumbar spine wo con [facility] [address] [place] [address] XRay Report Signed Patient: Breann Starks MR#: [id number] 171 : 1945 Acct:[id number] Age/Sex: 77 / F ADM Date: 10/11/23 Loc: Room: Type: [facility] Attending Dr: Claire DESIR Copies to: THANG Porter Ordering Provider: THANG Porter Date of Service: 10/11/23 MR/MR lumbar spine wo con: LUMBAR RADICULPATHY ([id number]) XR/XR pre/post mri xray: LUMBAR RADICULPATHY CLINICAL [...] Eleanor Reece M.D.10/11/2023 4:10 PM Dictation Location: [place] [address] Transcribed By: [facility] 10/11/23 1610 Dictated By: Eleanor Reece MD 10/11/23 1133 Signed By: 10/11/23 1610 Normal [facility] Office Visiton 07-05-2023 Follow-up visit [id number] Breann Starks 1945 F Date Provider Department Center 07/05/2023 MariYANCY RENE AMISH Darrell Tristian Family History Adopted: Yes Family history unknown: Yes Family Status - Relation Status Age at Mother Father Level of Service:08408 NE OFFICE/OUTPATIENT ESTABLISHED LOW MDM 20-29 MIN Normal [facility] XR LSPINE W_OBLS AND FLEX_EX [...] DELGADO Date: 2023-01-31 11:34 Normal [facility] LIPID PROFILEon 12-16-2022 CHOL-HDL RATIO NORM SEE BELOW Normal [facility] Comment on above: Result Comment: 3.3 - 4.4 LOW RISK 4.4 - 7.1 AVERAGE RISK 7.1 - 11.0 MODERATE RISK >11.0 HIGH RISK Performed By: #### L IPID ####[facility] [address] [place] [address]Dr. Erasmo Smith Cholesterol [Mass/Vol] 105 mg/dL Normal <=200 [facility] Comment on above: Performed By: #### L IPID ####[facility] [address] [place], [place] [address]El. Heavenean Luis Cholesterol in HDL [Mass/Vol] 48 mg/dL Normal 40-60 [facility] Comment on above: Performed By: #### L IPID ####[facility] [address] [place], [place] [address]Zw. Erasmo Smith Cholesterol in LDL [Mass/Vol] 48.2 mg/dL Normal [facility] Comment on above: Performed By: #### L IPID ####[facility] [address] [place] [address]Dr. Erasmo Smith Cholesterol.total/Chol esterol in HDL [Mass ratio] 2.2 {ratio} Normal [facility] Comment on above: Performed By: #### L IPID ####[facility] [address] [place] [id number]. Erasmo Smith HDL NORMAL > or = 60 mg/dl - LOW CARDIOVASCULAR RISK <40 mg/dl - HIGH CARDIOVASCULAR RISK Normal [facility] Comment on above: Performed By: #### L IPID ####[facility] [address] [place], [place] [address]Dr. Erasmo Smith LDL CALC NORMAL SEE BELOW Normal [facility] Comment on above: Result Comment: <100 mg/dl OPTIMAL 100 - 129 mg/dl NEAR OR ABOVE OPTIMAL 130 - 159 mg/dl BORDERLINE HIGH 160 - 189 mg/dl HIGH >190 mg/dl VERY HIGH Performed By: #### L IPID ####[facility] [address] [place] [id number]. Erasmo Smith Triglyceride [Mass/Vol] 44 mg/dL Normal <=150 [facility] Comment on above: Performed By: #### L IPID ####[facility] [address] [place] [address]Dr. Erasmo Smith VLDL CALC 8.8 mg/dL Normal [facility] Comment on above: Performed By: #### L IPID ####[facility] [address] [place] [id number]. Erasmo Smith CULTURE BLOODon 12-04-2022 Microscopic examination [...] F Trimethoprim/Sulfame thoxazole <=20 S F Normal [facility] Comment on above: Performed By: #### B LDCX1 ####[facility] [address] [place], [place] [address]Dr. Erasmo Smith BNPon 12-03-2022 Natriuretic peptide B (Bld) [Mass/Vol] 413.0 pg/mL Normal <=1,800.0 [facility] Comment on above: Performed By: #### B WELT MAKER #### [facility] [address] [place] [address] [address] Erasmo Smith CBC AUTO DIFFon 12-03-2022 BASO # 0.0 103/ul Normal 0.0-0.1 [facility] Comment on above: Performed By: #### C BC ####[facility] [address] [place] [address]DrMeena Smith Basophils/100 WBC (Bld) 0.2 % Normal 0.2-2.0 [facility] Comment on above: Performed By: #### C BC ####[facility] [address] [place], [place] [address]DrMeena Smith EO # 0.4 103/ul Normal 0.0-0.7 [facility] Comment on above: Performed By: #### C BC ####[facility] [address] [place], [place] [address]Dr. Erasmo Smith Eosinophils/100 WBC (Bld) 2.1 % Normal 0.9-7.0 [facility] Comment on above: Performed By: #### C BC ####[facility] [address] [place] [address]Dr. Heavenean Luis Erythrocyte distribution width (RBC) [Ratio] 17.2 % Critically high 11.0-15.0 [facility] Comment on above: Performed By: #### C BC ####[facility] [address] [place] [address]Dr. Erasmo Smith Hematocrit (Bld) [Volume fraction] 29.2 % Critically low 36.0-48.0 [facility] Comment on above: Performed By: #### C BC ####[facility] [address] [place], [place] [address]Dr. Erasmo Smith Hemoglobin (Bld) [Mass/Vol] 9.5 g/dL Critically low 12.0-16.0 [facility] Comment on above: Performed By: #### C BC ####[facility] [address] [place], [place] [address]Dr. Erasmo Smith IG # 0.13 10e3/ul Critically high 0.00-0.03 [facility] Comment on above: Performed By: #### C BC ####[facility] [address] [place], [place] [address]Dr. Erasmo Smith IG % 0.8 % Critically high 0.0-0.5 [facility] Comment on above: Performed By: #### C BC ####[facility] [address] [place], [place] [address]Dr. Erasmo Smith LYMPH # 1.8 103/ul Normal 1.2-3.8 [facility] Comment on above: Performed By: #### C BC ####[facility] [address] [place], [place] [address]Dr. Erasmo Smith Lymphocytes/100 WBC (Bld) 10.3 % Critically low 20.5-60.0 [facility] Comment on above: Performed By: #### C BC ####[facility] [address] [place], [place] [address]Dr. Erasmo Smith MANUAL DIFF REQ NO Normal [facility] Comment on above: Performed By: #### C BC ####[facility] [address] [place] [address]DrMeena Smith MCH (RBC) [Entitic mass] 25.7 pg Critically low 26.7-34.0 [facility] Comment on above: Performed By: #### C BC ####[facility] [address] [place] [address]DrMeena Smith MCHC (RBC) [Mass/Vol] 32.5 g/dL Normal 29.9-35.2 [facility] Comment on above: Performed By: #### C BC ####[facility] [address] [place], [place] [address]DrMeena Smith MCV (RBC) [Entitic vol] 79.1 fL Critically low 81.0-99.0 [facility] Comment on above: Performed By: #### C BC ####[facility] [address] [place], [place] [address]DrMeena Smith MONO # 1.5 103/ul Critically high 0.3-0.8 [facility] Comment on above: Performed By: #### C BC ####[facility] [address] [place], [place] [address]DrMeena Smith Monocytes/100 WBC (Bld) 8.7 % Normal 1.7-12.0 [facility] Comment on above: Performed By: #### C BC ####[facility] [address] [place], [place] [address]DrMeena Smith NEUT # 13.4 103/ul Critically high 1.4-6.5 [facility] Comment on above: Performed By: #### C BC ####[facility] [address] [place], [place] [address]DrMeena Smith Neutrophils/100 WBC (Bld) 77.9 % Critically high 43.0-75.0 [facility] Comment on above: Performed By: #### C BC ####[facility] [address] [place], [place] [address]Dr. Erasmo Smith Platelet mean volume (Bld) [Entitic vol] 9.3 fL Critically low 9.5-13.5 [facility] Comment on above: Performed By: #### C BC ####[facility] [address] [place] [address]Dr. Erasmo Smith PLT 205 103/ul Normal 150-450 [facility] Comment on above: Performed By: #### C BC ####[facility] [address] [place] [id number]. Erasmo Smith RBC 3.69 106/ul Critically low 4.20-5.40 [facility] Comment on above: Performed By: #### C BC ####[facility] [address] [place] [address]Dr. Erasmo Smith WBC 17.2 103/ul Critically high 4.0-11.0 [facility] Comment on above: Performed By: #### C BC ####[facility] [address] [place] [address]Dr. Erasmo Smith MAGNESIUMon 12-03-2022 Magnesium [Mass/Vol] 1.9 mg/dL Normal 1.8-2.4 [facility] Comment on above: Performed By: #### B WELT MAKER #### [facility] [address] [place] [address] [address] Erasmo Smith PROF 14(COMP METB)on 023 Albumin [Mass/Vol] 2.6 g/dL Critically low 3.4-5.0 [facility] Comment on above: Performed By: #### B WELT MAKER #### [facility] [address] [place] [address] Dr. Erasmo Smith Albumin/Globulin [Mass ratio] 0.6 {ratio} Normal [facility] Comment on above: Performed By: #### B WELT MAKER #### [facility] [address] [place] [address] [address] Erasmo Smith ALP [Catalytic activity/Vol] 123 U/L Critically high 46-116 [facility] Comment on above: Performed By: #### B WELT MAKER #### [facility] [address] [place] [address] Dr. Erasmo Smith ALT [Catalytic activity/Vol] 28 U/L Normal 14-59 [facility] Comment on above: Performed By: #### B WELT MAKER #### [facility] [address] [place] [address] Dr. Erasmo Smith Anion gap [Moles/Vol] 9.4 mmol/L Normal [facility] Comment on above: Performed By: #### B WELT MAKER #### [facility] [address] [place] [address] [address] Erasmo Smith AST [Catalytic activity/Vol] 21 U/L Normal 15-37 [facility] Comment on above: Performed By: #### B WELT MAKER #### [facility] [address] [place] [address] Dr. Erasmo Smith Bilirubin [Mass/Vol] 0.3 mg/dL Normal 0.2-1.0 [facility] Comment on above: Performed By: #### B WELT MAKER #### [facility] [address] [place] [address] Dr. Erasmo Smith Calcium [Mass/Vol] 8.3 mg/dL Critically low 8.5-10.1 [facility] Comment on above: Performed By: #### B WELT MAKER #### [facility] [address] [place] [address] Dr. Erasmo Smith Chloride [Moles/Vol] 105 mmol/L Normal 98-107 [facility] Comment on above: Performed By: #### B WELT MAKER #### [facility] [address] [place] [address] Dr. Erasmo Smith CO2 [Moles/Vol] 27.1 mmol/L Normal 21.0-32.0 [facility] Comment on above: Performed By: #### B WELT MAKER #### [facility] [address] [place] [address] Dr. Erasmo Smith Creatinine [Mass/Vol] 0.55 mg/dL Normal 0.55-1.02 [facility] Comment on above: Performed By: #### B WELT MAKER #### [facility] [address] [place] [address] Dr. Erasmo Smith EGFR-AF HONDURAN >60 Normal >=60 [facility] Comment on above: Performed By: #### B WELT MAKER #### [facility] [address] [place] [address] [address] Erasmo Smith EGFR-NON AF HONDURAN >60 Normal >=60 [facility] Comment on above: Performed By: #### B WELT MAKER #### [facility] [address] [place] [address] [address] Erasmo Smith Globulin (S) [Mass/Vol] 4.0 g/dL Normal [facility] Comment on above: Performed By: #### B WELT MAKER #### [facility] [address] [place] [address] [address] Erasmo Smith Glucose [Mass/Vol] 132 mg/dL Critically high 74-106 [facility] Comment on above: Performed By: #### B WELT MAKER #### [facility] [address] [address] [address] Erasmo Smith Potassium [Moles/Vol] 3.5 mmol/L Normal 3.5-5.1 [facility] Comment on above: Performed By: #### B WELT MAKER #### [facility] [address] [address] [address] Erasmo Smith Protein [Mass/Vol] 6.6 g/dL Normal 6.4-8.2 [facility] Comment on above: Performed By: #### B WELT MAKER #### [facility] [address] [address] [address] Erasmo Smith Sodium [Moles/Vol] 138 mmol/L Normal 136-145 [facility] Comment on above: Performed By: #### B WELT MAKER #### [facility] [address] [address] [address] Erasmo Smith Urea nitrogen [Mass/Vol] 24.0 mg/dL Critically high 7.0-18.0 [facility] Comment on above: Performed By: #### B WELT MAKER #### [facility] [address] [address] [address] Erasmo Smith Urea nitrogen/Creatinine [Mass ratio] 43.6 mg/mg Normal [facility] Comment on above: Performed By: #### B WELT MAKER #### [facility] [address] [address] [address] Erasmo Smith PROTIMEon 12-03-2022 INR Coag (PPP) [Relative time] 4.41 {INR} Critically high The [facility] Comment on above: Performed By: #### C MREP #### [facility] [address] [address] [address] Erasmo Smith INR GUIDELINES SEE BELOW Normal The [facility] Comment on above: Result Comment: ABNER RED INR: 2.0 - 3.0 CONDITIONS NOT LISTED BELOW 2.5 - 3.5 FOR PROSTHETIC HEART VALVE REPLACEMENT 2.5 - 3.5 RECURRENT THROMBOSIS Performed By: #### C MREP #### [facility] [address] [address] [address] Erasmo Smith PT Coag (PPP) [Time] 43.0 s Critically high 9.0-11.6 [facility] Comment on above: Performed By: #### C MREP #### [facility] [address] [address] [address] Erasmo Smith BLOOD CULTURE ID PANELon A. baumannii Not detected Normal NOT DETECTED The [facility] Comment on above: Performed By: #### B CID2 ####[facility] [address] [place], [place] [address]DrMeena Smith Bacteriodes fragilis Not detected Normal NOT DETECTED [facility] Comment on above: Performed By: #### B CID2 ####[facility] [address] [address]Dr. Erasmo Smith BCID CONTROLS PASSED Normal The [facility] Comment on above: Performed By: #### B CID2 ####[facility] [address] [address]Dr. Erasmo Smith BCIDBTHD BLOOD CULTURE BOTTLE INFORMATION Normal [facility] Comment on above: Performed By: #### B CID2 ####[facility] [address] [address]Dr. Erasmo Smith BCIDHD1 ANTIMICROBIAL RESISTANCE GENES Normal [facility] Comment on above: Performed By: #### B CID2 ####[facility] [address] [address]Dr. Yiean Smith BCIDHD2 SEE BELOW Normal [facility] Comment on above: Result Comment: Note : Antimicrobial resitance can occur via multiple mechanisms. A Not Detected result for the [employer] antomicrobial resistance gene assays does not indicate antimicrobial susceptibility. Subculturing is required for species identification and susceptibility testing of isolates. Performed By: #### B CID2 ####[facility] [address] [place], [place] [address]Dr. Erasmo Smith BCIDHD3 Positive Normal [facility] Comment on above: Performed By: #### B CID2 ####[facility] [address]frarst[address] [place], [place] [address]Dr. Yiean Smith BCIDHD4 Negative Normal [facility] Comment on above: Performed By: #### B CID2 ####[facility] [address] [place], [place] [address]Dr. Erasmo Smith BCIDHD5 YEAST Normal [facility] Comment on above: Performed By: #### B CID2 ####[facility] Yadqljvrv[address] [place], [place] [address]Dr. Erasmo Smith Bottle Set: Set 1 Normal [facility] Comment on above: Performed By: #### B CID2 ####[facility] Epgsdeizci[address] [place], [place] [address]Dr. Erasmo mSith Bottle: Anaerobic Normal [facility] Comment on above: Performed By: #### B CID2 ####[facility] [address]qwkj[address] [place], [place] [address]Dr. Yiean Smith C. neoformans/gattii Not detected Normal NOT DETECTED [facility] Comment on above: Performed By: #### B CID2 ####[facility] Dcalylnzfz[address] [place], [place] [address]Dr. Yiean Smith Naye albicans Not detected Normal NOT DETECTED [facility] Comment on above: Performed By: #### B CID2 ####[facility] Evkiaywjhm[address] [place], [place] [address]Dr. Yiean Smith Naye auris Not detected Normal NOT DETECTED The [facility] Comment on above: Performed By: #### B CID2 ####[facility] Teztfjkujj[address] [place], [place] [address]Dr. Erasmo Smith Naye glabrata Not detected Normal NOT DETECTED [facility] Comment on above: Performed By: #### B CID2 ####[facility] [address] [address]Dr. Erasmo Smith Naye Krusei Not detected Normal NOT DETECTED [facility] Comment on above: Performed By: #### B CID2 ####[facility] Omnbozdkbm[address] [place], [place] [address]Dr. Erasmo Smith Naye Parapsilosis Not detected Normal NOT DETECTED [facility] Comment on above: Performed By: #### B CID2 ####[facility] Aqixtynwyo[address] [place], [place] [address]Dr. Erasmo Smith Naye Tropicalis Not detected Normal NOT DETECTED [facility] Comment on above: Performed By: #### B CID2 ####[facility] Nzuacycifw[address] [place], [place] [address]Dr. Erasmo Smith CTX-M Resistant Gene Not Applicable Normal NOT DETECTE D [facility] Comment on above: Performed By: #### B CID2 ####[facility] Vsiighkvrx303[address] [place], [place] [address]Dr. Erasmo Smith E. Cloacae complex Not detected Normal NOT DETECTED [facility] Comment on above: Performed By: #### B CID2 ####[facility] Cphryohhep106[address] [place], [place] [address]Dr. Heavenlan Smith E. faecalis Not detected Normal NOT DETECTED [facility] Comment on above: Performed By: #### B CID2 ####[facility] Grpcpyomhf[address] [place], [place] [address]Dr. Heavenlan Smith E. faecium Not detected Normal NOT DETECTED The [facility] Comment on above: Performed By: #### B CID2 ####[facility] Yfqfjmxulu265[address] [place], [place] [address]Dr. Heavenean Smith Enterobacteriaceae Detected Critically abnormal NOT DETECTED [facility] Comment on above: Performed By: #### B CID2 ####[facility] [address] [address]Dr. Erasmo Simth Escherichia coli Detected Critically abnormal NOT DETECTED [facility] Comment on above: Performed By: #### B CID2 ####[facility] [address] [address]Dr. Erasmo Smith H. influenzae Not detected Normal NOT DETECTED The [facility] Comment on above: Performed By: #### B CID2 ####[facility] Iisutwdqkp074[address] [place], [place] [address]Dr. Erasmo Smith IMP Resistant Gene Not Applicable Normal NOT DETECTED [facility] Comment on above: Performed By: #### B CID2 ####[facility] Aeocdmzvar[address] [place], [place] [address]Dr. Erasmo Smith K. oxytoca Not detected Normal NOT DETECTED [facility] Comment on above: Performed By: #### B CID2 ####[facility] Ksrxsbhqnx625[address] [place], [place] [address]Dr. Erasmo Smith K. pneumoniae Not detected Normal NOT DETECTED [facility] Comment on above: Performed By: #### B CID2 ####[facility] Xhgfjyfdmy[address] [place], [place] [address]Dr. Erasmo Smith Klebsiella aerogenes Not detected Normal NOT DETECTED [facility] Comment on above: Performed By: #### B CID2 ####[facility] Ryisiiglci[address] [place], [place] [address]Dr. Erasmo Smith KPC Resistant Gene Not detected Normal NOT DETECTED [facility] Comment on above: Performed By: #### B CID2 ####[facility] [address] [address]Dr. Erasmo Smith List. monocytogenes Not detected Normal NOT DETECTED [facility] Comment on above: Performed By: #### B CID2 ####[facility] [address] [address]Dr. Erasmo Smith Mcr-1 Resistant Gene Not Applicable Normal NOT DETECTE D [facility] Comment on above: Performed By: #### B CID2 ####[facility] Ybqeiqulaa[address] [place], [place] [address]Dr. Heavenean Luis mecA/C Not Applicable Normal NOT DETECTED [facility] Comment on above: Performed By: #### B CID2 ####[facility] Dkkqemgfbb[address] [place], [place] [address]Dr. Erasmo Smith mecA/C MREJ Not Applicable Normal NOT DETECTED [facility] Comment on above: Performed By: #### B CID2 ####[facility] Bdhgrnoxic[address] [place], [place] [address]Dr. Erasmo Smith N. meningitidis Not detected Normal NOT DETECTED [facility] Comment on above: Performed By: #### B CID2 ####[facility] Znhwokwxck794[address] [place], [place] [address]Dr. Erasmo Smith NDM Resistant Gene Not Applicable Normal NOT DETECTED [facility] Comment on above: Performed By: #### B CID2 ####[facility] Pmplagvlui999[address] [place], [place] [address]Dr. Erasmo Smith Oxa-48-like Not Applicable Normal NOT DETECTED [facility] Comment on above: Performed By: #### B CID2 ####[facility] Knzrxlfxbv1845[address] [place], [place] [address]Dr. Erasmo Smith Proteus Not detected Normal NOT DETECTED [facility] Comment on above: Performed By: #### B CID2 ####[facility] Tcfkiojwzj323[address] [place], [place] [address]Dr. Erasmo Smith Pseud. aeruginosa Not detected Normal NOT DETECTED [facility] Comment on above: Performed By: #### B CID2 ####[facility] Aautlkixzt523[address] [place], [place] [address]Dr. Erasmo Smith S. maltophilia Not detected Normal NOT DETECTED [facility] Comment on above: Performed By: #### B CID2 ####[facility] Garuspgpun647[address] [place], [place] [address]Dr. Erasmo Smith Salmonella Not detected Normal NOT DETECTED [facility] Comment on above: Performed By: #### B CID2 ####[facility] Fehcjnzkkp5514[address] [place], [place] [address]Dr. Erasmo Smith Seratia marcescens Not detected Normal NOT DETECTED [facility] Comment on above: Performed By: #### B CID2 ####[facility] Cgjqelwyrt127[address] [place], [place] [address]Dr. Erasmo Smith Site: l ac Normal [facility] Comment on above: Performed By: #### B CID2 ####[facility] Ehglmbfozj943[address] [place], [place] [address]Dr. Erasmo Luis Staph. aureus Not detected Normal NOT DETECTED [facility] Comment on above: Performed By: #### B CID2 ####[facility] Yojchikunu916[address] [place], [place] [address]Dr. Erasmo Luis Staph. epidermidis Not detected Normal NOT DETECTED [facility] Comment on above: Performed By: #### B CID2 ####[facility] Rmonvzlygh209[address] [place], [place] [address]Dr. Heavenean Luis Staph. lugdunensis Not detected Normal NOT DETECTED [facility] Comment on above: Performed By: #### B CID2 ####[facility] Hlkfgfjsmq864[address] [place], [place] [address]Dr. Erasmo Smith Staphylococcus Not detected Normal NOT DETECTED [facility] Comment on above: Performed By: #### B CID2 ####[facility] Scsgjcqmnn638[address] [place], [place] [address]Dr. Erasmo Smith Strep. agalactiae Not detected Normal NOT DETECTED [facility] Comment on above: Performed By: #### B CID2 ####[facility] Vfzpkhyzjc5[address] [place], [place] [address]Dr. Erasmo Smith Strep. pneumoniae Not detected Normal NOT DETECTED [facility] Comment on above: Performed By: #### B CID2 ####[facility] Pgxwxjyqsv[address] [place], [place] [address]Dr. Yilan Smith Strep. pyogenes Not detected Normal NOT DETECTED [facility] Comment on above: Performed By: #### B CID2 ####[facility] Acfqyorhqd406[address] [place], [place] [address]Dr. Yilan Smith Streptococcus Not detected Normal NOT DETECTED [facility] Comment on above: Performed By: #### B CID2 ####[facility] [address] [address]DrMeena Smith Fran/B Resist. Gene Not detected Normal NOT DETECTED [facility] Comment on above: Performed By: #### B CID2 ####[facility] Rcvgrnwxjb620[address] [place], [place] [address]DrMeena Smith VIM Resistant Gene Not Applicable Normal NOT DETECTED [facility] Comment on above: Performed By: #### B CID2 ####[facility] Obfgsnxknx75[address] [place], [place] [address]Dr. Erasmo Smith BNPon 12-02-2022 Natriuretic peptide B (Bld) [Mass/Vol] 1059.0 pg/mL Normal <=1,800.0 [facility] Comment on above: Performed By: #### B WELT MAKER #### [facility] [address] [place] [address] Dr. Erasmo Smith CBC AUTO DIFFon 12-02-2022 BASO # 0.0 103/ul Normal 0.0-0.1 [facility] Comment on above: Performed By: #### C BC ####[facility] Eumomudcbk[address] [place], [place] [address]Dr. Erasmo Smith Basophils/100 WBC (Bld) 0.2 % Normal 0.2-2.0 [facility] Comment on above: Performed By: #### C BC ####[facility] Srakecviwf9[address] [place], [place] [address]DrMeena Smith EO # 0.0 103/ul Normal 0.0-0.7 [facility] Comment on above: Performed By: #### C BC ####[facility] Thqecoclrh677[address] [place], [place] [address]Dr. Erasmo Smith Eosinophils/100 WBC (Bld) 0.0 % Critically low 0.9-7.0 [facility] Comment on above: Performed By: #### C BC ####[facility] Grgxgldmbv015[address] [place], [place] [address]DrMeena Smith Erythrocyte distribution width (RBC) [Ratio] 17.3 % Critically high 11.0-15.0 [facility] Comment on above: Performed By: #### C BC ####[facility] [address]ri[address] [address]Dr. Erasmo Smith Hematocrit (Bld) [Volume fraction] 31.4 % Critically low 36.0-48.0 [facility] Comment on above: Performed By: #### C BC ####[facility] Hfpepviref020[address] [place], [place] [address]DrMeena Smith Hemoglobin (Bld) [Mass/Vol] 10.0 g/dL Critically low 12.0-16.0 [facility] Comment on above: Performed By: #### C BC ####[facility] Wknjkxdojy417[address] [place], [place] [address]Dr. Erasmo Smith IG # 0.06 10e3/ul Critically high 0.00-0.03 [facility] Comment on above: Performed By: #### C BC ####[facility] Xwrrwcybpn74[address] [place], [place] [address]Dr. Erasmo Smith IG % 0.4 % Normal 0.0-0.5 [facility] Comment on above: Performed By: #### C BC ####[facility] Kwnpzjxxwh07[address] [place], [place] [address]DrMeena Smith LYMPH # 1.3 103/ul Normal 1.2-3.8 [facility] Comment on above: Performed By: #### C BC ####[facility] Uspxgkamec[address] [place], [place] [address]DrMeena Smith Lymphocytes/100 WBC (Bld) 8.1 % Critically low 20.5-60.0 [facility] Comment on above: Performed By: #### C BC ####[facility] Gnpapzmjxv[address] [place], [place] [address]DrMeena Smith MANUAL DIFF REQ NO Normal [facility] Comment on above: Performed By: #### C BC ####[facility] Eltyxpbxnd186[address] [place], [place] [address]DrMeena Smith MCH (RBC) [Entitic mass] 25.6 pg Critically low 26.7-34.0 [facility] Comment on above: Performed By: #### C BC ####[facility] [address] [address]Dr. Heavenean Luis MCHC (RBC) [Mass/Vol] 31.8 g/dL Normal 29.9-35.2 [facility] Comment on above: Performed By: #### C BC ####[facility] Qumliwmlvv[address] [place], [place] [address]DrMeena Smith MCV (RBC) [Entitic vol] 80.3 fL Critically low 81.0-99.0 [facility] Comment on above: Performed By: #### C BC ####[facility] Whyghkqkja699[address] [place], [place] [address]DrMeena Smith MONO # 0.6 103/ul Normal 0.3-0.8 [facility] Comment on above: Performed By: #### C BC ####[facility] Txmbyldcwk[address] [place], [place] [address]DrMeena Smith Monocytes/100 WBC (Bld) 3.7 % Normal 1.7-12.0 [facility] Comment on above: Performed By: #### C BC ####[facility] Aiyzttdaep[address] [place], [place] [address]DrMeena Smith NEUT # 14.5 103/ul Critically high 1.4-6.5 [facility] Comment on above: Performed By: #### C BC ####[facility] Shcyhkdcla55[address] [place], [place] [address]DrMeena Smith Neutrophils/100 WBC (Bld) 87.6 % Critically high 43.0-75.0 [facility] Comment on above: Performed By: #### C BC ####[facility] Rgruevdpxj415[address] [place], [place] [address]DrMeena Smith Platelet mean volume (Bld) [Entitic vol] 10.0 fL Normal 9.5-13.5 [facility] Comment on above: Performed By: #### C BC ####[facility] Jwlctcnzws[address] [place], [place] [address]Dr. Erasmo Smith PLT 206 103/ul Normal 150-450 [facility] Comment on above: Performed By: #### C BC ####[facility] [address] [place], [place] [address]Rz. Erasmo Smith RBC 3.91 106/ul Critically low 4.20-5.40 [facility] Comment on above: Performed By: #### C BC ####[facility] [address] [place], [place] [address]Gl. Erasmo Smith WBC 16.5 103/ul Critically high 4.0-11.0 [facility] Comment on above: Performed By: #### C BC ####[facility] [address] [place], [place] [address]As. Erasmo Smith ECHOCARDIO M/2D COMPLETEon 0 12-02-2022 ECHOCARDIO M/2D COMPLETE Patient: BREANN STARKS Exam Date: 12/02/2022 : 1945 Gender:F Ordering : KAYLEY HOLMAN . Admission #: [id number] Family : DR LUISANA FISHER . Order #: [id number] CLICK HERE TO VIEW EXAM ECHOCARDIOGRAM REPORT [...] on 12/02/2022 at 21:58 Normal [facility] MAGNESIUMon 12-02-2022 Magnesium [Mass/Vol] 2.0 mg/dL Normal 1.8-2.4 [facility] Comment on above: Performed By: #### B WELT MAKER #### [facility] [address] [place] [address] Dr. Erasmo Smith PROF 14(COMP METB)on 023 Albumin [Mass/Vol] 2.7 g/dL Critically low 3.4-5.0 [facility] Comment on above: Performed By: #### B WELT MAKER #### [facility] [address] [place] [address] Dr. Erasmo Smith Albumin/Globulin [Mass ratio] 0.6 {ratio} Normal [facility] Comment on above: Performed By: #### B WELT MAKER #### [facility] [address] [place] [address] Dr. Erasmo Smith ALP [Catalytic activity/Vol] 128 U/L Critically high 46-116 [facility] Comment on above: Performed By: #### B WELT MAKER #### [facility] [address] [place] [address] Dr. Erasmo Smith ALT [Catalytic activity/Vol] 34 U/L Normal 14-59 [facility] Comment on above: Performed By: #### B WELT MAKER #### [facility] [address] [place] [address] Dr. Erasmo Smith Anion gap [Moles/Vol] 10.6 mmol/L Normal [facility] Comment on above: Performed By: #### B WELT MAKER #### [facility] [address] [place] [address] Dr. Erasmo Smith AST [Catalytic activity/Vol] 27 U/L Normal 15-37 [facility] Comment on above: Performed By: #### B WELT MAKER #### [facility] [address] [place] [address] Dr. Erasmo Smith Bilirubin [Mass/Vol] 0.5 mg/dL Normal 0.2-1.0 [facility] Comment on above: Performed By: #### B WELT MAKER #### [facility] [address] [place] [address] Dr. Erasmo Smith Calcium [Mass/Vol] 8.4 mg/dL Critically low 8.5-10.1 [facility] Comment on above: Performed By: #### B WELT MAKER #### [facility] [address] [place] [address] Dr. Erasmo Smith Chloride [Moles/Vol] 104 mmol/L Normal 98-107 [facility] Comment on above: Performed By: #### B WELT MAKER #### [facility] [address] [place] [address] Dr. Erasmo Smith CO2 [Moles/Vol] 26.2 mmol/L Normal 21.0-32.0 [facility] Comment on above: Performed By: #### B WELT MAKER #### [facility] [address] [place] [address] Dr. Erasmo Smith Creatinine [Mass/Vol] 0.52 mg/dL Critically low 0.55-1.02 [facility] Comment on above: Performed By: #### B WELT MAKER #### [facility] [address] [place] [address] Dr. Erasmo Smith EGFR-AF HONDURAN >60 Normal >=60 [facility] Comment on above: Performed By: #### B WELT MAKER #### [facility] [address] [place] [address] Dr. Erasmo Smith EGFR-NON AF HONDURAN >60 Normal >=60 [facility] Comment on above: Performed By: #### B WELT MAKER #### [facility] [address] [place] [address] Dr. Erasmo Smith Globulin (S) [Mass/Vol] 4.3 g/dL Normal [facility] Comment on above: Performed By: #### B WELT MAKER #### [facility] [address] [place] [address] Dr. Erasmo Smith Glucose [Mass/Vol] 135 mg/dL Critically high 74-[address] [facility] Comment on above: Performed By: #### B WELT MAKER #### [facility] [address] [place] [address] Dr. Erasmo Smith Potassium [Moles/Vol] 3.8 mmol/L Normal 3.5-5.1 [facility] Comment on above: Performed By: #### B WELT MAKER #### [facility] [address] [place] [address] Dr. Erasmo Smith Protein [Mass/Vol] 7.0 g/dL Normal 6.4-8.2 [facility] Comment on above: Performed By: #### B WELT MAKER #### [facility] [address] [place] [address] Dr. Erasmo Smith Sodium [Moles/Vol] 137 mmol/L Normal 136-145 [facility] Comment on above: Performed By: #### B WELT MAKER #### [facility] [address] [place] [address] Dr. Erasmo Smith Urea nitrogen [Mass/Vol] 16.0 mg/dL Normal 7.0-18.0 [facility] Comment on above: Performed By: #### B WELT MAKER #### [facility] [address] [place] [address] Dr. Erasmo Smith Urea nitrogen/Creatinine [Mass ratio] 30.8 mg/mg Normal [facility] Comment on above: Performed By: #### B WELT MAKER #### [facility] [address] [place] [address] Dr. Erasmo Smith PROTIMEon 12-02-2022 INR Coag (PPP) [Relative time] 4.39 {INR} Critically high [facility] Comment on above: Performed By: #### P T #### [facility] [address] [place] [place] [address] Dr. Erasmo Smith INR GUIDELINES SEE BELOW Normal [facility] Comment on above: Result Comment: ABNER RED INR: 2.0 - 3.0 CONDITIONS NOT LISTED BELOW 2.5 - 3.5 FOR PROSTHETIC HEART VALVE REPLACEMENT 2.5 - 3.5 RECURRENT THROMBOSIS Performed By: #### P T #### [facility] [address] [place] [address] Dr. Erasmo Smith PT Coag (PPP) [Time] 42.8 s Critically high 9.0-11.6 [facility] Comment on above: Performed By: #### P T #### [facility] [address] [place] [address] Dr. Erasmo Smith UA RANDOM W/MICROSCOPICon BACTERIA NONE SEEN Normal NONE SEEN [facility] Comment on above: Performed By: #### U AMIC ####[facility] [address] [place], [place] [address]Dr. Erasmo Smith Bilirubin Ql (U) Negative Normal NEGATIVE [facility] Comment on above: Performed By: #### U AMIC ####[facility] [address] [place] [address]Dr. Erasmo Smith CAST NONE SEEN Normal NONE SEEN [facility] Comment on above: Performed By: #### U AMIC ####[facility] [address] [place], [place] [address]Dr. Erasmo Smith Clarity (U) CLEAR Normal CLEAR [facility] Comment on above: Performed By: #### U AMIC ####[facility] N[address] [place], [place] [address]Dr. Erasmo Smith Color (U) YELLOW Normal YELLOW [facility] Comment on above: Performed By: #### U AMIC ####[facility] [address] [place], [place] [address]Dr. Erasmo Smith Crystals LM Nom (Urine sed) NONE SEEN Normal NONE SEEN [facility] Comment on above: Performed By: #### U AMIC ####[facility] T[address] [place], [place] [address]Dr. Erasmo Smith Epithelial cells LM Ql (Urine sed) RARE Normal NONE SEEN /RARE [facility] Comment on above: Performed By: #### U AMIC ####[facility] Q[address] [place], [place] [address]Dr. Erasmo Smith Glucose Ql (U) Negative Normal NEGATIVE [facility] Comment on above: Performed By: #### U AMIC ####[facility] I[address] [place], [place] [address]Dr. Erasmo Smith Hemoglobin Ql (U) SMALL Abnormal NEGATIVE [facility] Comment on above: Performed By: #### U AMIC ####[facility] Zobfi[address] [place], [place] [address]Dr. Ersamo Smith Ketones Ql (U) 15 mg/dl Abnormal NEGATIVE [facility] Comment on above: Performed By: #### U AMIC ####[facility] [address] [place] [address]Dr. Erasmo Smith LEUKOCYTES Negative Normal NEGATIVE [facility] Comment on above: Performed By: #### U AMIC ####[facility] [address] [address]Dr. Erasmo Smith MUCOUS NONE SEEN Normal NONE SEEN [facility] Comment on above: Performed By: #### U AMIC ####[facility] [address] [address]Dr. Erasmo Smith Nitrite Ql (U) Negative Normal NEGATIVE [facility] Comment on above: Performed By: #### U AMIC ####[facility] [address] [address]Dr. Erasmo Smith pH (U) 6.0 [pH] Normal 5-9 [facility] Comment on above: Performed By: #### U AMIC ####[facility] [address] [place], [place] [address]Dr. Erasmo Smith RBC 0-2 Normal 0-2 [facility] Comment on above: Performed By: #### U AMIC ####[facility] E[address] [place], [place] [address]Dr. Erasmo Smith SPEC GRAVITY 1.025 Normal 1.005-<=1.02 5 [facility] Comment on above: Performed By: #### U AMIC ####[facility] M[address] [place], [place] [address]Dr. Erasmo Smith UA PROTEIN TRACE Normal NEGATIVE/ TRACE [facility] Comment on above: Performed By: #### U AMIC ####[facility] [address] [place], [place] [address]Dr. Erasmo Smith Urobilinogen Qn (U) 4 {Shraddha'U}/dL Abnormal 0.2 - 1.0 [facility] Comment on above: Performed By: #### U AMIC ####[facility] [address] [place], [place] [address]Dr. Erasmo Smith WBC 0-2 Abnormal NONE SEEN [facility] Comment on above: Performed By: #### U AMIC ####[facility] [address] [place], [place] [address]Dr. Erasmo Smith CARDIAC ROSA ELENA 3-6on 3 CK [Catalytic activity/Vol] 53 U/L Normal 26-192 [facility] Comment on above: Performed By: #### C MREP #### [facility] [id number] Erasmo Smith CK.MB [Mass/Vol] 0.90 ng/mL Normal <=3.60 [facility] Comment on above: Performed By: #### C MREP #### [facility] [address] [address] [address] Erasmo Smith HSTROP 116.7 pg/mL Critically high 4.0-51.3 [facility] Comment on above: Result Comment: CUT- OFF POINTS HAVE BEEN ESTABLISHED BASED ON THE FOURTH UNIVERSAL DEFINITIONS OF MYOCARDIAL INFARCTION. THE UPPER REFERENCE LIMIT (URL) OF TROPONIN, DEFINED THE 99TH PERCENTILE OF cTnI DISTRIBUTION IN A REFERENCE POPULATION, HAS BEEN CONFIRMED THE DECISION THRESHOLD FOR [place] DIAGNOSIS. Performed By: #### C MREP #### [facility] [id number] Erasmo Smith CK [Catalytic activity/Vol] 47 U/L Normal 26-192 [facility] Comment on above: Performed By: #### B WELT MAKER #### [facility] [id number] Erasmo Smith CK.MB [Mass/Vol] 1.00 ng/mL Normal <=3.60 [facility] Comment on above: Performed By: #### B WELT MAKER #### [facility] [id number] Erasmo Smith HSTROP 154.3 pg/mL Critically high 4.0-51.3 [facility] Comment on above: Result Comment: CUT- OFF POINTS HAVE BEEN ESTABLISHED BASED ON THE FOURTH UNIVERSAL DEFINITIONS OF MYOCARDIAL INFARCTION. THE UPPER REFERENCE LIMIT (URL) OF TROPONIN, DEFINED THE 99TH PERCENTILE OF cTnI DISTRIBUTION IN A REFERENCE POPULATION, HAS BEEN CONFIRMED THE DECISION THRESHOLD FOR [place] DIAGNOSIS. Performed By: #### B WELT MAKER #### [facility] [address] [place] [address] Dr. Erasmo Smith CBC W MANUAL DIFFon 12-02-19 ATYPICAL LYMPH # Normal [facility] Comment on above: Performed By: #### C ANGELA #### [facility] [address] [place] [address] Dr. Erasmo Smith ATYPICAL LYMPH % Normal [facility] Comment on above: Performed By: #### C ALHAJIMAN #### [facility] [address] [place] [address] Dr. Erasmo Smith BAND # 0.6 103/ul Critically high 0.0-0.3 [facility] Comment on above: Performed By: #### C ALHAJIMAN #### [facility] [address] [place] [address] Dr. Erasmo Smith BAND % 3 % Normal 0-5 [facility] Comment on above: Performed By: #### C ANGELA #### [facility] [address] [place] [address] Dr. Erasmo Smith BASOM # 0.00 103/ul Normal 0.00-0.10 [facility] Comment on above: Performed By: #### C ANGELA #### [facility] [address] [place] [address] Dr. Erasmo Smith BASOM % 0.0 % Critically low 0.2-2.0 [facility] Comment on above: Performed By: #### C ANGELA #### [facility] [address] [place] [address] Dr. Erasmo Smith BLAST # Normal [facility] Comment on above: Performed By: #### C ANGELA #### [facility] [address] [place] [address] Dr. Erasmo Smith BLAST % Normal [facility] Comment on above: Performed By: #### C ANGELA #### [facility] [address] [place] [address] Dr. Erasmo Smith CORRECTED WBC Normal 4.0-11.0 [facility] Comment on above: Performed By: #### C BCBLAISE #### [facility] [address] [address] [address] Erasmo Smith EOS # 0.19 103/ul Normal 0.00-0.70 [facility] Comment on above: Performed By: #### C BCBLAISE #### [facility] [address] [address] [address] Erasmo Smith EOS% 1.0 % Normal 0.9-7.0 [facility] Comment on above: Performed By: #### C BCBLAISE #### [facility] [address] [address] [address] Erasmo Smith HCT 32.7 % Critically low 36.0-48.0 [facility] Comment on above: Performed By: #### C ANGELA #### [facility] [address] [address] [address] Erasmo Smith HGB 10.5 g/dl Critically low 12.0-16.0 [facility] Comment on above: Performed By: #### C ANGELA #### [facility] [address] [address] [address] Erasmo Smith LYMPHM # 0.76 103/ul Critically low 1.20-3.80 [facility] Comment on above: Performed By: #### C ANGELA #### [facility] [address] [address] [address] Erasmo Smith LYMPHM% 4.0 % Critically low 20.5-60.0 [facility] Comment on above: Performed By: #### C BCBLAISE #### [facility] [address] [address] [address] Erasmo Smith MCH 25.9 pg Critically low 26.7-34.0 [facility] Comment on above: Performed By: #### C ANGELA #### [facility] [address] [address] [address] Erasmo Smith MCHC 32.1 g/dl Normal 29.9-35.2 [facility] Comment on above: Performed By: #### C ANGELA #### [facility] [address] [place] [address] Dr. Erasmo Smith MCV 80.5 fL Critically low 81.0-99.0 [facility] Comment on above: Performed By: #### C BCMAN #### [facility] [address] [place] [address] Dr. Erasmo Smith METAMYELOCYTE # Normal [facility] Comment on above: Performed By: #### C BCMAN #### [facility] [address] [place] [address] Dr. Erasmo Smith METAMYELOCYTE % Normal [facility] Comment on above: Performed By: #### C ANGELA #### [facility] [address] [place] [address] Dr. Erasmo Smith MONOM# 1.14 103/ul Critically high 0.30-0.80 [facility] Comment on above: Performed By: #### C ANGELA #### [facility] [address] [place] [address] Dr. Erasmo Smith MONOM% 6.0 % Normal 1.7-12.0 [facility] Comment on above: Performed By: #### C ANGELA #### [facility] [address] [place] [address] Dr. Erasmo Smith MPV 9.4 fL Critically low 9.5-13.5 [facility] Comment on above: Performed By: #### C ANGELA #### [facility] [address] [place] [address] Dr. Erasmo Smith MYELOCYTE # Normal [facility] Comment on above: Performed By: #### C ANGELA #### [facility] [address] [place] [address] Dr. Erasmo Smith MYELOCYTE % Normal [facility] Comment on above: Performed By: #### C ANGELA #### [facility] [address] [place] [address] Dr. Erasmo Smith NRBC Normal [facility] Comment on above: Performed By: #### C ANGELA #### [facility] [address] [place] [address] Dr. Erasmo Smith PLT 195 103/ul Normal 150-450 [facility] Comment on above: Performed By: #### C BCMAN #### [facility] [address] [place], [place] [address] Dr. Erasmo Smith RBC 4.06 106/ul Critically low 4.20-5.40 [facility] Comment on above: Performed By: #### C BCMAN #### [facility] [id number] Erasmo Smith RDW 17.7 % Critically high 11.0-15.0 [facility] Comment on above: Performed By: #### C BCMAN #### [facility] [address] [address] [address] Erasmo Smith SEG # 16.34 103/ul Critically high 1.40-6.50 [facility] Comment on above: Performed By: #### C BCMAN #### [facility] [id number] Erasmo Smith SEG % 86.0 % Critically high 43.0-75.0 [facility] Comment on above: Performed By: #### C BCMAN #### [facility] [address] [place], [place] [address] Dr. Erasmo Smith WBC 19.0 103/ul Critically high 4.0-11.0 [facility] Comment on above: Performed By: #### C BCMAN #### [facility] [address] [address] HEAD WO CONon [...] HAYDERPEARL MCCORMICK Date: 2022 14:50 Normal [facility] CULTURE BLOODon 2022 Microscopic examination of blood, culture Culture Observations: Aerobic and Anaerobic bottle positive. BCID: E. Coli Culture Observations: Refer to for VIOLET. Isolate 1 Escherichia coli Growth of Normal [facility] Comment on above: Performed By: #### B LDCX2 ####[facility] [address] [place], [place] [address]ZyMeena Smith Covid-19 PCR (CVDTB)on 11-11 SARS-CoV-2 (COVID-19) RNA EMILY+probe Ql (Unsp spec) Not detected Normal NOT DETECTED [facility] Comment on above: Result Comment: When [...] for this test is supported by the [employer]er of Health and Human Service's declaration that [...] used). Performed By: #### C MREP #### [facility] [address] [place], [place] [address] Dr. Erasmo Smith LACTATE/LACTIC ACIDon 2022 Lactate [Moles/Vol] 1.2 mmol/L Normal 0.4-2.0 [facility] Comment on above: Performed By: #### L ACT ####[facility] [address] [place] [id number]. Erasmo Smith PH VENOUS BLOODon 2022 PCO2 VENOUS 37.8 mmHg Critically low 40.0-52.0 [facility] Comment on above: Performed By: #### P HVEN ####[facility] [address] [place] [address]Dr. Heavenean Luis pH VENOUS 7.417 Normal 7.330-7.430 [facility] Comment on above: Performed By: #### P FEDERICO ####[facility] [address] [place] [address]Dr. Erasmo Smith PROF 14(COMP METB)on 023 Albumin [Mass/Vol] 3.1 g/dL Critically low 3.4-5.0 [facility] Comment on above: Performed By: #### H ALEXSANDER, CMP ####[facility] [address] [place], [place] [address]Dr. Erasmo Smith Albumin/Globulin [Mass ratio] 0.8 {ratio} Normal [facility] Comment on above: Performed By: #### H ALEXSANDER, CMP ####[facility] [address] [place], [place] [address]Dr. Erasmo Smith ALP [Catalytic activity/Vol] 194 U/L Critically high 46-116 [facility] Comment on above: Performed By: #### Kymberly BELTRE, CMP ####[facility] [address] [place], [place] [address]Dr. Erasmo Smith ALT [Catalytic activity/Vol] 37 U/L Normal 14-59 [facility] Comment on above: Performed By: #### H ALEXSANDER, CMP ####[facility] [address] [place] [address]Dr. Erasmo Smith Anion gap [Moles/Vol] 14.6 mmol/L Normal [facility] Comment on above: Performed By: #### Kymberly BELTRE, CMP ####[facility] [address] [place] [address]Dr. Erasmo Smith AST [Catalytic activity/Vol] 32 U/L Normal 15-37 [facility] Comment on above: Performed By: #### Kymberly BELTRE, CMP ####[facility] [address] [place] [address]Dr. Erasmo Smith Bilirubin [Mass/Vol] 1.0 mg/dL Normal 0.2-1.0 [facility] Comment on above: Performed By: #### H ALEXSANDER, CMP ####[facility] [address] [place], [place] [address]Dr. Erasmo Smith Calcium [Mass/Vol] 8.9 mg/dL Normal 8.5-10.1 [facility] Comment on above: Performed By: #### H STROPN, CMP ####[facility] [address] [place] [address]Dr. Erasmo Smith Chloride [Moles/Vol] 103 mmol/L Normal 98-107 [facility] Comment on above: Performed By: #### H STROLYNDA, CMP ####[facility] [address] [place], [place] [address]Dr. Erasmo Smith CO2 [Moles/Vol] 23.6 mmol/L Normal 21.0-32.0 [facility] Comment on above: Performed By: #### H STROLYNDA, CMP ####[facility] [address] [place], [place] [address]Dr. Erasmo Smith Creatinine [Mass/Vol] 0.69 mg/dL Normal 0.55-1.02 [facility] Comment on above: Performed By: #### H ALEXSANDER, CMP ####[facility] [address] [place], [place] [address]Dr. Erasmo Smith EGFR-AF HONDURAN >60 Normal >=60 [facility] Comment on above: Performed By: #### H STROPN, CMP ####[facility] [address] [place] [address]Dr. Erasmo Smith EGFR-NON AF HONDURAN >60 Normal >=60 [facility] Comment on above: Performed By: #### H STROPN, CMP ####[facility] [address] [place], [place] [address]Dr. Erasmo Smith Globulin (S) [Mass/Vol] 4.1 g/dL Normal [facility] Comment on above: Performed By: #### H STROPN, CMP ####[facility] [address] [place] [address]Dr. Erasmo Smith Glucose [Mass/Vol] 121 mg/dL Critically high 74-106 [facility] Comment on above: Performed By: #### H ALEXSANDER, CMP ####[facility] [address] [place] [address]Dr. Erasmo Smith Potassium [Moles/Vol] 3.2 mmol/L Critically low 3.5-5.1 [facility] Comment on above: Performed By: #### H ALEXSANDER, CMP ####[facility] [address] [place] [address]Dr. Erasmo Smith Protein [Mass/Vol] 7.2 g/dL Normal 6.4-8.2 [facility] Comment on above: Performed By: #### H ALEXSANDER, CMP ####[facility] [address] [place] [address]Dr. Erasmo Smith Sodium [Moles/Vol] 138 mmol/L Normal 136-145 [facility] Comment on above: Performed By: #### H ALEXSANDER, CMP ####[facility] [address] [place] [address]Dr. Erasmo Smith Urea nitrogen [Mass/Vol] 17.0 mg/dL Normal 7.0-18.0 [facility] Comment on above: Performed By: #### H ALEXSANDER, CMP ####[facility] [address] [place] [address]Dr. Erasmo Smith Urea nitrogen/Creatinine [Mass ratio] 24.6 mg/mg Normal [facility] Comment on above: Performed By: #### H ALEXSANDER, CMP ####[facility] [address] [place] [address]DrMeena Smith PROTIMEon 2022 INR Coag (PPP) [Relative time] 3.58 {INR} Normal [facility] Comment on above: Performed By: #### P T, PTT #### [facility] [address] [address] [address] Erasmo Smith INR GUIDELINES SEE BELOW Normal [facility] Comment on above: Result Comment: ABNER RED INR: 2.0 - 3.0 CONDITIONS NOT LISTED BELOW 2.5 - 3.5 FOR PROSTHETIC HEART VALVE REPLACEMENT 2.5 - 3.5 RECURRENT THROMBOSIS Performed By: #### P T, PTT #### [facility] [address] [place] [address] Dr. Erasmo Smith PT Coag (PPP) [Time] 35.3 s Critically high 9.0-11.6 [facility] Comment on above: Performed By: #### P T, PTT #### [facility] [address] [place] [address] Dr. Erasmo Smith PTTon 2022 aPTT Coag (Bld) [Time] 40.3 s Critically high 22.3-36. 2 [facility] Comment on above: Performed By: #### P T, PTT #### [facility] [address] [place] [address] Dr. Erasmo Smith TROPONIN, HIGH SENSITIVITYon 2022 HSTROP 194.7 pg/mL Critically high 4.0-51.3 [facility] Comment on above: Result Comment: CUT- OFF POINTS HAVE BEEN ESTABLISHED BASED ON THE FOURTH UNIVERSAL DEFINITIONS OF MYOCARDIAL INFARCTION. THE UPPER REFERENCE LIMIT (URL) OF TROPONIN, DEFINED THE 99TH PERCENTILE OF cTnI DISTRIBUTION IN A REFERENCE POPULATION, HAS BEEN CONFIRMED THE DECISION THRESHOLD FOR [place] DIAGNOSIS. Performed By: #### C MREP #### [facility] [address] [place] [address] Dr. Erasmo Smith HSTROP 218.0 pg/mL Critically high 4.0-51.3 [facility] Comment on above: Result Comment: CUT- OFF POINTS HAVE BEEN ESTABLISHED BASED ON THE FOURTH UNIVERSAL DEFINITIONS OF MYOCARDIAL INFARCTION. THE UPPER REFERENCE LIMIT (URL) OF TROPONIN, DEFINED THE 99TH PERCENTILE OF cTnI DISTRIBUTION IN A REFERENCE POPULATION, HAS BEEN CONFIRMED THE DECISION THRESHOLD FOR [place] DIAGNOSIS. Performed By: #### B WELT MAKER #### [facility] [address] [place] [address] Dr. Erasmo Smith XR CHEST 1 Von [...] by: HONG ALSTON Date: 2022 14:[address] [facility] MAMM SCREEN 3D TOÑITO CADon 11-26-2022 MG MAMM SCREEN 3D TOÑITO CAD Patient: BREANN STARKS Exam Date: 11/26/2022 : 1945 Gender:F Ordering : DR LUISANA FISHRE . Admission #: [id number] Family : Order #: [id number] CLICK HERE TO VIEW EXAM RADIOLOGY REPORT [...] Treatments None Family Cancers None LOCATION: [facility] BREAST COMPOSITION: Heterogeneously dense,which may obscure [...] Delgado M.D. on 11/26/2022 at 14:13 Normal [facility] PROF 14(COMP METB)on 022 Albumin [Mass/Vol] 3.8 g/dL Normal 3.4-5.0 [facility] Comment on above: Performed By: #### C MREP #### [facility] [address] [address] [address] Erasmo Smith Albumin/Globulin [Mass ratio] 0.8 {ratio} Normal [facility] Comment on above: Performed By: #### C MREP #### [facility] [address] [address] [address] Erasmo Smith ALP [Catalytic activity/Vol] 102 U/L Normal 46-116 [facility] Comment on above: Performed By: #### C MREP #### [facility] [address] [address] [address] Erasmo Smith ALT [Catalytic activity/Vol] 47 U/L Normal 14-59 [facility] Comment on above: Performed By: #### C MREP #### [facility] [address] [place] [address] Dr. Erasmo Smith Anion gap [Moles/Vol] 12.5 mmol/L Normal [facility] Comment on above: Performed By: #### C MREP #### [facility] [address] [place] [address] Dr. Erasmo Smith AST [Catalytic activity/Vol] 36 U/L Normal 15-37 [facility] Comment on above: Performed By: #### C MREP #### [facility] [address] [place] [address] Dr. Erasmo Smith Bilirubin [Mass/Vol] 0.3 mg/dL Normal 0.2-1.0 [facility] Comment on above: Performed By: #### C MREP #### [facility] [address] [address] [address] Erasmo Smith Calcium [Mass/Vol] 8.9 mg/dL Normal 8.5-10.1 [facility] Comment on above: Performed By: #### C MREP #### [facility] [address] [address] [address] Erasmo Smith Chloride [Moles/Vol] 106 mmol/L Normal 98-107 [facility] Comment on above: Performed By: #### C MREP #### [facility] [address] [address] [address] Erasmo Smith CO2 [Moles/Vol] 26.9 mmol/L Normal 21.0-32.0 [facility] Comment on above: Performed By: #### C MREP #### [facility] [address] [address] [address] Erasmo Smith Creatinine [Mass/Vol] 0.79 mg/dL Normal 0.55-1.02 [facility] Comment on above: Performed By: #### C MREP #### [facility] [address] [place] [address] Dr. Erasmo Smith EGFR-AF HONDURAN >60 Normal >=60 [facility] Comment on above: Performed By: #### C MREP #### [facility] [address] [place] [address] Dr. Erasmo Smith EGFR-NON AF HONDURAN >60 Normal >=60 [facility] Comment on above: Performed By: #### C MREP #### [facility] [address] [place] [address] Dr. Erasmo Smith Globulin (S) [Mass/Vol] 4.6 g/dL Normal [facility] Comment on above: Performed By: #### C MREP #### [facility] [address] [place] [address] Dr. Erasmo Smith Glucose [Mass/Vol] 102 mg/dL Normal 74-106 [facility] Comment on above: Performed By: #### C MREP #### [facility] [address] [place] [address] Dr. Erasmo Smith Potassium [Moles/Vol] 4.4 mmol/L Normal 3.5-5.1 [facility] Comment on above: Performed By: #### C MREP #### [facility] [address] [place] [address] Dr. Erasmo Smith Protein [Mass/Vol] 8.4 g/dL Critically high 6.4-8.[address] [facility] Comment on above: Performed By: #### C MREP #### [facility] [address] [place] [address] Dr. Erasmo Smith Sodium [Moles/Vol] 141 mmol/L Normal 136-145 [facility] Comment on above: Performed By: #### C MREP #### [facility] [address] [place] [address] Dr. Erasmo Smith Urea nitrogen [Mass/Vol] 28.0 mg/dL Critically high 7.0-18.0 [facility] Comment on above: Performed By: #### C MREP #### [facility] [address] [place] [address] Dr. Erasmo Smith Urea nitrogen/Creatinine [Mass ratio] 35.4 mg/mg Normal [facility] Comment on above: Performed By: #### C MREP #### [facility] [address] [place] [address] Dr. Erasmo Smith CBC AUTO DIFFon 07-12-2022 BASO # 0.1 103/ul Normal 0.0-0.1 [facility] Comment on above: Performed By: #### B WELT MAKER #### [facility] [address] [place] [address] Dr. Erasmo Smith Basophils/100 WBC (Bld) 0.5 % Normal 0.2-2.0 [facility] Comment on above: Performed By: #### B WELT MAKER #### [facility] [address] [place] [address] Dr. Erasmo Smith EO # 0.2 103/ul Normal 0.0-0.7 [facility] Comment on above: Performed By: #### B WELT MAKER #### [facility] [address] [place] [address] Dr. Erasmo Smith Eosinophils/100 WBC (Bld) 2.5 % Normal 0.9-7.0 [facility] Comment on above: Performed By: #### B WELT MAKER #### [facility] [address] [place] [address] Dr. Erasmo Smith Erythrocyte distribution width (RBC) [Ratio] 17.2 % Critically high 11.0-15.0 [facility] Comment on above: Performed By: #### B WELT MAKER #### [facility] [address] [place] [address] Dr. Erasmo Smith Hematocrit (Bld) [Volume fraction] 35.0 % Critically low 36.0-48.0 [facility] Comment on above: Performed By: #### B WELT MAKER #### [facility] [address] [place] [address] Dr. Erasmo Smith Hemoglobin (Bld) [Mass/Vol] 11.3 g/dL Critically low 12.0-16.0 [facility] Comment on above: Performed By: #### B WELT MAKER #### [facility] [address] [place] [address] Dr. Erasmo Smith IG # 0.02 10e3/ul Normal 0.00-0.03 [facility] Comment on above: Performed By: #### B WELT MAKER #### [facility] [address] [place] [address] Dr. Erasmo Smith IG % 0.2 % Normal 0.0-0.5 [facility] Comment on above: Performed By: #### B WELT MAKER #### [facility] [address] [place] [address] Dr. Erasmo Smith LYMPH # 2.3 103/ul Normal 1.2-3.8 [facility] Comment on above: Performed By: #### B WELT MAKER #### [facility] [address] [place] [address] Dr. Erasmo Smith Lymphocytes/100 WBC (Bld) 25.4 % Normal 20.5-60.0 [facility] Comment on above: Performed By: #### B WELT MAKER #### [facility] [address] [place] [address] Dr. Erasom Smith MANUAL DIFF REQ NO Normal [facility] Comment on above: Performed By: #### B WELT MAKER #### [facility] [address] [place] [address] Dr. Erasmo Smith MCH (RBC) [Entitic mass] 25.5 pg Critically low 26.7-34.0 [facility] Comment on above: Performed By: #### B WELT MAKER #### [facility] [address] [place] [address] Dr. Erasmo Smith MCHC (RBC) [Mass/Vol] 32.3 g/dL Normal 29.9-35.2 [facility] Comment on above: Performed By: #### B WELT MAKER #### [facility] [address] [place] [address] Dr. Erasmo Smith MCV (RBC) [Entitic vol] 78.8 fL Critically low 81.0-99.0 [facility] Comment on above: Performed By: #### B WELT MAKER #### [facility] [address] [place] [address] Dr. Erasmo Smith MONO # 0.7 103/ul Normal 0.3-0.8 [facility] Comment on above: Performed By: #### B WELT MAKER #### [facility] [address] [place] [address] Dr. Erasmo Smith Monocytes/100 WBC (Bld) 7.5 % Normal 1.7-12.0 [facility] Comment on above: Performed By: #### B WELT MAKER #### [facility] [address] [place] [address] Dr. Erasmo Smith NEUT # 5.9 103/ul Normal 1.4-6.5 [facility] Comment on above: Performed By: #### B WELT MAKER #### [facility] [address] [place] [address] Dr. Erasmo Smith Neutrophils/100 WBC (Bld) 63.9 % Normal 43.0-75.0 [facility] Comment on above: Performed By: #### B WELT MAKER #### [facility] [address] [place] [address] Dr. Erasmo Smith Platelet mean volume (Bld) [Entitic vol] 9.0 fL Critically low 9.5-13.5 [facility] Comment on above: Performed By: #### B WELT MAKER #### [facility] [address] [place] [address] Dr. Erasmo Smith PLT 305 103/ul Normal 150-450 [facility] Comment on above: Performed By: #### B WELT MAKER #### [facility] [address] [place] [address] Dr. Erasmo Smith RBC 4.44 106/ul Normal 4.20-5.40 [facility] Comment on above: Performed By: #### B WELT MAKER #### [facility] [address] [place], [place] [address] Dr. Erasmo Smith WBC 9.2 103/ul Normal 4.0-11.0 [facility] Comment on above: Performed By: #### B WELT MAKER #### [facility] [address] [place], [place] [address] CHEST WO CONon [...] PAULA DELGADO Date: 2022-05-27 15:27 Normal [facility] HEMOGLOBINon 04-20-2022 Hemoglobin (Bld) [Mass/Vol] 10.6 g/dL Critically low 12.0-16.0 [facility] Comment on above: Performed By: #### H GB ####[facility] [address] [place], [place] [address]AgDr. Erasmo Smith CULTURE SPUTUMon 04-02-2022 CULTURE SPUTUM Isolate 1 Pseudomonas aeruginosa Light growth of ORGANISM 1 Pseudomonas aeruginosa ANTIBIOTIC M.I.C RX STATUS Piperacillin/Tazobac saez 8 S F Ceftazidime 2 S F Imipenem 1 S F Amikacin <=2 S F Gentamicin <=1 S F Tobramycin <=1 S F Ciprofloxacin <=0.25 S F Levofloxacin 0.25 S F Normal [facility] Comment on above: Performed By: #### S PUTCX ####[facility] [address] [place] [address]Dr. Erasmo Smith CYTOLOGYon 03-30-2022 SENT TO REF LAB 03/31/22 Normal [facility] Comment on above: Performed By: #### C YTO #### [facility] [address] [place] [address] [address] Erasmo Smith SPUTUM GRAM STAINon 03-30-20 COMMENTS [facility] Comment on above: Performed By: #### B WELT MAKER #### [facility] [address] [place] [address] Dr. Erasmo Smith DIPHTHEROIDS [facility] Comment on above: Performed By: #### B WELT MAKER #### [facility] [address] [place] [address] [address] Erasmo Smith EPITHELIALS <25 Normal [facility] Comment on above: Performed By: #### B WELT MAKER #### [facility] [address] [place] [address] [address] Erasmo Smith FUNGAL ELEMENTS [facility] Comment on above: Performed By: #### B WELT MAKER #### [facility] [address] [place] [address] Dr. Erasmo CINTRON NEG BACILLI FEW Normal [facility] Comment on above: Performed By: #### B WELT MAKER #### [facility] [address] [place] [address] Dr. Erasmo CINTRON NEG DIPPLOCOCCI [facility] Comment on above: Performed By: #### B WELT MAKER #### [facility] [address] [place] [address] Dr. Erasmo CINTRON POS BACILLI [facility] Comment on above: Performed By: #### B WELT MAKER #### [facility] [address] [place] [address] Dr. Yilan Smith GRAM POSITIVE COCCI MANY Normal [facility] Comment on above: Performed By: #### B WELT MAKER #### [facility] [address] [address] [address] Erasmo Smith WBC (Bld) [#/Vol] 10*3/uL Normal [facility] Comment on above: Performed By: #### B WELT MAKER #### [facility] [address] [address] [address] Erasmo Smith SPUTUM CULTUREon 03-01-2022 Epithelial cells LM Ql (Urine sed) Few Normal [facility] Comment on above: Performed By: #### C XSPTUM ####[facility] [address] [place], [place] [address]DrMeena Smith Gram Stain Evaluation Comment Normal [facility] Comment on above: Result Comment: This specimen is of good quality and is acceptable for routine bacterial culture. Performed By: #### C XSPTUM ####[facility] [address] [place], [place] [address]DrMeena Smith Lower Respiratory Culture Final report Normal [facility] Comment on above: Performed By: #### C XSPTUM ####[facility] [address] [place], [place] [address]Dr. Erasmo Smith Result 1 Comment Normal [facility] Comment on above: Result Comment: Few gram positive cocci Performed By: #### C XSPTUM ####[facility] [address] [place], [place] [address]Dr. Erasmo Smith Result Comment: Rout ine respiratory adria Result 2 Normal [facility] Comment on above: Performed By: #### C XSPTUM ####[facility] [address] [place] [address]Dr. Erasmo Smith Result 3 Normal [facility] Comment on above: Performed By: #### C XSPTUM ####[facility] [address] [place], [place] [address]Dr. Erasmo Smith Result 4 Normal [facility] Comment on above: Performed By: #### C XSPTUM ####[facility] [address] [place], [place] [address]Dr. Erasmo Smith White Blood Cells Few Normal [facility] Comment on above: Performed By: #### C XSPTUM ####[facility] [address] [place] [address]Dr. Erasmo Smith BNPon 02-24-2022 Natriuretic peptide B (Bld) [Mass/Vol] 319.0 pg/mL Normal <=900.0 [facility] Comment on above: Performed By: #### B WELT MAKER #### [facility] [address] [address] [address] Erasmo Smith CBC AUTO DIFFon 02-24-2022 BASO # 0.1 103/ul Normal 0.0-0.1 [facility] Comment on above: Performed By: #### C MREP #### [facility] [address] [address] [address] Erasmo Smith Basophils/100 WBC (Bld) 0.5 % Normal 0.2-2.0 [facility] Comment on above: Performed By: #### C MREP #### [facility] [address] [address] [address] Erasmo Smith EO # 0.3 103/ul Normal 0.0-0.7 [facility] Comment on above: Performed By: #### C MREP #### [facility] [address] [address] [address] Erasmo Smith Eosinophils/100 WBC (Bld) 3.1 % Normal 0.9-7.0 [facility] Comment on above: Performed By: #### C MREP #### [facility] [address] [address] [address] Erasmo Smith Erythrocyte distribution width (RBC) [Ratio] 15.1 % Critically high 11.0-15.0 [facility] Comment on above: Performed By: #### C MREP #### [facility] [address] [address] [address] Erasmo Smith Hematocrit (Bld) [Volume fraction] 33.9 % Critically low 36.0-48.0 [facility] Comment on above: Performed By: #### C MREP #### [facility] [address] [place] [address] Dr. Erasmo Smith Hemoglobin (Bld) [Mass/Vol] 10.7 g/dL Critically low 12.0-16.0 [facility] Comment on above: Performed By: #### C MREP #### [facility] [address] [place] [address] Dr. Erasmo Smith IG # 0.03 10e3/ul Normal 0.00-0.03 [facility] Comment on above: Performed By: #### C MREP #### [facility] [address] [place] [address] Dr. Erasmo Smith IG % 0.3 % Normal 0.0-0.5 [facility] Comment on above: Performed By: #### C MREP #### [facility] [address] [place] [address] Dr. Erasmo Smith LYMPH # 2.8 103/ul Normal 1.2-3.8 [facility] Comment on above: Performed By: #### C MREP #### [facility] [address] [place] [address] Dr. Erasmo Smith Lymphocytes/100 WBC (Bld) 30.6 % Normal 20.5-60.0 [facility] Comment on above: Performed By: #### C MREP #### [facility] [address] [place] [address] Dr. Eramso Smith MANUAL DIFF REQ NO Normal [facility] Comment on above: Performed By: #### C MREP #### [facility] [address] [place] [address] Dr. Erasmo Smith MCH (RBC) [Entitic mass] 26.9 pg Normal 26.7-34.0 [facility] Comment on above: Performed By: #### C MREP #### [facility] [address] [place] [address] Dr. Erasmo Smith MCHC (RBC) [Mass/Vol] 31.6 g/dL Normal 29.9-35.2 [facility] Comment on above: Performed By: #### C MREP #### [facility] [address] [address] [address] Erasmo Smith MCV (RBC) [Entitic vol] 85.2 fL Normal 81.0-99.0 [facility] Comment on above: Performed By: #### C MREP #### [facility] [address] [address] [address] Erasmo Smith MONO # 0.7 103/ul Normal 0.3-0.8 [facility] Comment on above: Performed By: #### C MREP #### [facility] [address] [address] [address] Erasmo Smith Monocytes/100 WBC (Bld) 7.9 % Normal 1.7-12.0 [facility] Comment on above: Performed By: #### C MREP #### [facility] [address] [place] [address] Dr. Erasmo Smith NEUT # 5.3 103/ul Normal 1.4-6.5 [facility] Comment on above: Performed By: #### C MREP #### [facility] [address] [place] [address] Dr. Erasmo Smith Neutrophils/100 WBC (Bld) 57.6 % Normal 43.0-75.0 [facility] Comment on above: Performed By: #### C MREP #### [facility] [address] [place] [address] Dr. Erasmo Smith Platelet mean volume (Bld) [Entitic vol] 9.0 fL Critically low 9.5-13.5 [facility] Comment on above: Performed By: #### C MREP #### [facility] [address] [place] [address] Dr. Erasmo Smith PLT 249 103/ul Normal 150-450 [facility] Comment on above: Performed By: #### C MREP #### [facility] [address] [place] [address] Dr. Erasmo Smith RBC 3.98 106/ul Critically low 4.20-5.40 [facility] Comment on above: Performed By: #### C MREP #### [facility] [address] [address] [address] Erasmo Smith WBC 9.1 103/ul Normal 4.0-11.0 [facility] Comment on above: Performed By: #### C MREP #### [facility] [address] [place] [address] Dr. Erasmo Smith CTA CHEST WO W [...] by: PAULA DELGADO Date: 2022-02-24 18:24 Normal [facility] D-DIMERon 02-24-2022 D-DIMER 1.36 mg/L FEU Critically high <=0.59 [facility] Comment on above: Performed By: #### D DIM #### [facility] [address] [address] [address] rEasmo Smith D-DIMER COMMENTS SEE BELOW Normal [facility] Comment on above: Result Comment: [...] hospitalization. Performed By: #### D DIM #### [facility] [address] [place] [address] Dr. Erasmo Smith PROF 14(COMP METB)on 022 Albumin [Mass/Vol] 3.6 g/dL Normal 3.4-5.0 [facility] Comment on above: Performed By: #### C MREP #### [facility] [address] [place] [address] Dr. Erasmo Smith Albumin/Globulin [Mass ratio] 0.8 {ratio} Normal [facility] Comment on above: Performed By: #### C MREP #### [facility] [address] [place] [address] Dr. Erasmo Smith ALP [Catalytic activity/Vol] 95 U/L Normal 46-116 [facility] Comment on above: Performed By: #### C MREP #### [facility] [address] [place] [address] Dr. Erasmo Smith ALT [Catalytic activity/Vol] 45 U/L Normal 14-59 [facility] Comment on above: Performed By: #### C MREP #### [facility] [address] [place] [address] Dr. Erasmo Smith Anion gap [Moles/Vol] 15.9 mmol/L Normal [facility] Comment on above: Performed By: #### C MREP #### [facility] [address] [place] [address] Dr. Erasmo Smith AST [Catalytic activity/Vol] 33 U/L Normal 15-37 [facility] Comment on above: Performed By: #### C MREP #### [facility] [address] [place] [address] Dr. Erasmo Smith Bilirubin [Mass/Vol] 0.5 mg/dL Normal 0.2-1.0 [facility] Comment on above: Performed By: #### C MREP #### [facility] [address] [place] [address] Dr. Erasmo Smith Calcium [Mass/Vol] 9.1 mg/dL Normal 8.5-10.1 [facility] Comment on above: Performed By: #### C MREP #### [facility] [address] [place] [address] Dr. Erasmo Smith Chloride [Moles/Vol] 103 mmol/L Normal 98-107 [facility] Comment on above: Performed By: #### C MREP #### [facility] [address] [place] [address] Dr. Erasmo Smith CO2 [Moles/Vol] 25.1 mmol/L Normal 21.0-32.0 [facility] Comment on above: Performed By: #### C MREP #### [facility] [address] [place] [address] Dr. Erasmo Smith Creatinine [Mass/Vol] 0.77 mg/dL Normal 0.55-1.02 [facility] Comment on above: Performed By: #### C MREP #### [facility] [address] [place] [address] Dr. Erasmo Smith EGFR-AF HONDURAN >60 Normal >=60 [facility] Comment on above: Performed By: #### C MREP #### [facility] [address] [place] [address] Dr. Erasmo Smith EGFR-NON AF HONDURAN >60 Normal >=60 [facility] Comment on above: Performed By: #### C MREP #### [facility] [address] [place] [address] Dr. Erasmo Smith Globulin (S) [Mass/Vol] 4.3 g/dL Normal [facility] Comment on above: Performed By: #### C MREP #### [facility] [address] [place] [address] Dr. Erasmo Smith Glucose [Mass/Vol] 92 mg/dL Normal 74-106 [facility] Comment on above: Performed By: #### C MREP #### [facility] [address] [address] [address] Erasmo Smith Potassium [Moles/Vol] 4.0 mmol/L Normal 3.5-5.1 [facility] Comment on above: Performed By: #### C MREP #### [facility] [address] [address] [address] Erasmo Smith Protein [Mass/Vol] 7.9 g/dL Normal 6.4-8.2 [facility] Comment on above: Performed By: #### C MREP #### [facility] [address] [address] [address] Erasmo Smith Sodium [Moles/Vol] 140 mmol/L Normal 136-145 [facility] Comment on above: Performed By: #### C MREP #### [facility] [address] [address] [address] Erasmo Smith Urea nitrogen [Mass/Vol] 17.0 mg/dL Normal 7.0-18.0 [facility] Comment on above: Performed By: #### C MREP #### [facility] [address] [address] [address] Erasmo Smith Urea nitrogen/Creatinine [Mass ratio] 22.1 mg/mg Normal [facility] Comment on above: Performed By: #### C MREP #### [facility] [address] [address] [address] Erasmo Smith PROTIMEon 02-24-2022 INR Coag (PPP) [Relative time] 2.28 {INR} Normal [facility] Comment on above: Performed By: #### P T, PTT ####[facility] [address] [place] [address]Dr. Erasmo Smith INR GUIDELINES SEE BELOW Normal [facility] Comment on above: Result Comment: ABNER RED INR: 2.0 - 3.0 CONDITIONS NOT LISTED BELOW 2.5 - 3.5 FOR PROSTHETIC HEART VALVE REPLACEMENT 2.5 - 3.5 RECURRENT THROMBOSIS Performed By: #### P T, PTT ####[facility] [address] [place], [place] [address]XzMeena Smith PT Coag (PPP) [Time] 23.3 s Critically high 9.0-11.6 [facility] Comment on above: Performed By: #### P T, PTT ####[facility] [address] [place], [place] [address]NhDr. Erasmo Smith PTTon 02-24-2022 aPTT Coag (Bld) [Time] 34.7 s Normal 22.3-36.2 [facility] Comment on above: Performed By: #### P T, PTT ####[facility] [id number] [place], [place] [address]XbMeena Smith TROPONIN, HIGH SENSITIVITYon 02-24-2022 HSTROP 6.6 pg/mL Normal 4.0-51.3 [facility] Comment on above: Result Comment: CUT- OFF POINTS HAVE BEEN ESTABLISHED BASED ON THE FOURTH UNIVERSAL DEFINITIONS OF MYOCARDIAL INFARCTION. THE UPPER REFERENCE LIMIT (URL) OF TROPONIN, DEFINED THE 99TH PERCENTILE OF cTnI DISTRIBUTION IN A REFERENCE POPULATION, HAS BEEN CONFIRMED THE DECISION THRESHOLD FOR [place] DIAGNOSIS. Performed By: #### C MREP #### [facility] [address] [place], [place] [address] Dr. Erasmo Smith PROTHROMBIN TIMEon INR Coag (PPP) [Relative time] 1.2 {INR} High 0.86-1.16 [facility] Comment on above: Result Comment: INR Theraputic Range: 2.0-3.5 Performed at [address] [address] PT Coag (PPP) [Time] 12.7 s Normal 9.3-12.7 [facility] ANTICOAGULANT COUMADIN Normal [facility] Vital Signs Date Time Vital Sign Value Performing Clinician Facility 03-02-2024 11:51-0400 Blood Pressure Location Ortega ALEXANDER [facility] [place] 03-02-2024 11:51-0400 Diastolic blood pressure 75 mm[Hg] Ortega ALEXANDER [facility] [place] 03-02-2024 11:51-0400 Heart rate 71 /min Ortega ALEXANDER [facility] 03-02-2024 11:51-0400 Respiratory rate 16 /min Ortega ALEXANDER [facility] 03-02-2024 11:51-0400 Systolic blood pressure 118 mm[Hg] Ortega ALEXANDER [facility] 10-07-2021 16:00-0500 Body height 146.69 cm Hong Nevarez Other [employer] Other 10-07-2021 16:00-0500 Body mass index (BMI) [Ratio] 51.01 kg/m2 Hong Nevarez Other [employer] Other 10-07-2021 16:00-0500 Body weight 109.77 kg Hong Nevarez Other [employer] Other 08-26-2021 15:15-0500 Body height 146.69 cm Hong Nevarez Other [employer] Other 08-26-2021 15:15-0500 Body mass index (BMI) [Ratio] 51.07 kg/m2 Hong Nevarez Other [employer] Other 08-26-2021 15:15-0500 Body weight 109.91 kg Hong Nevarez Other [employer] Other Encounters Encounter Date Encounter Type Care Provider Facility Start: 05-02-2024 End: 05-02-2024 Patient encounter procedure MD Shaikh Denis Work Phone: [facility] Work Phone: Start: 05-02-2024 End: 05-02-2024 ambulatory MD Shaikh Denis Work Phone: [facility] Work Phone: Start: 04-16-2024 End: 04-16-2024 ambulatory PEDRO PABLO Ivan CRUZ Not Available Start: 04-16-2024 End: 04-16-2024 ambulatory Miguel Murphy MD Facility:[facility] Start: 04-11-2024 End: 04-11-2024 ambulatory SHAIKH CIRA Not Available Start: 04-10-2024 End: 04-10-2024 Patient encounter procedure MD Shaikh Denis Work Phone: [facility] [place] Work Phone: Start: 04-10-2024 End: 04-10-2024 ambulatory MD Shaikh Denis Work Phone: [facility] Work Phone: Start: 04-02-2024 End: 04-02-2024 ambulatory Miguel Murphy MD Facility:[facility] Start: 03-29-2024 End: 03-29-2024 Patient encounter procedure MD Shaikh Denis Work Phone: [facility] Start: 03-29-2024 End: 03-29-2024 ambulatory MD Shaikh Denis Work Phone: [facility] Work Phone: Start: 03-12-2024 End: 03-12-2024 ambulatory SHAIKH CIRA Not Available Start: 03-07-2024 End: 03-07-2024 ambulatory Ortega ALEXANDER Facility:[id number] Start: 03-02-2024 End: 03-02-2024 ambulatory Ortega ALEXANDER Facility:[facility] [place] Start: 03-02-2024 End: 03-02-2024 Patient encounter procedure Ortega ALEXANDER [facility] Start: 03-01-2024 ambulatory Ortega NILAnkur Facility:[facility] Start: 02-27-2024 End: 02-27-2024 ambulatory SHAIKH CIRA Not Available Start: 01-17-2024 End: 01-17-2024 ambulatory NICANOR [place] Start: 12-29-2023 End: 12-29-2023 ambulatory SHAIKH CIRA Not Available Start: 12-27-2023 End: 12-27-2023 ambulatory [facility] Start: 12-26-2023 End: 12-26-2023 ambulatory Miguel Murphy MD Facility: [facility] Start: 12-05-2023 End: 12-05-2023 ambulatory Miguel Murphy MD Facility: [facility] Start: 11-16-2023 End: 11-16-2023 ambulatory Shaikh Cira Facility:[facility] Start: 11-07-2023 End: 11-07-2023 ambulatory SHAIKH CIRA Not Available Start: 10-17-2023 Cristobal Denis MD Work Phone: [facility] Start: 10-17-2023 Cristobal Denis MD Work Phone: [facility] Start: 10-17-2023 End: 10-17-2023 ambulatory SHAIKH CIRA Not Available Start: 10-11-2023 End: 10-11-2023 ambulatory MD Shaikh Denis Work Phone: [facility] Work Phone: Start: 10-11-2023 End: 10-11-2023 Patient encounter procedure MD Shaikh Denis Work Phone: [facility] [place] Work Phone: Start: 09-08-2023 End: 09-08-2023 Patient encounter procedure MD Shaikh Denis Work Phone: [facility] Start: 09-08-2023 End: 09-08-2023 ambulatory MD Shaikh Denis Work Phone: [facility] Work Phone: Start: 09-06-2023 End: 09-06-2023 ambulatory SHAIKH CIRA Not Available Start: 09-06-2023 Patient encounter procedure Shaikh Cira CUBA Work Phone: [facility] Start: 07-08-2023 End: 07-08-2023 ambulatory [facility] Start: 07-05-2023 End: 07-05-2023 ambulatory [facility] Start: 01-31-2023 End: 02-01-2023 ambulatory ANDRIUS GIEDRAITIS [...] Facility:[facility] Start: 07-13-2022 End: 07-14-2022 ambulatory LUIZ MARY . Facility:[facility] Start: 07-13-2022 End: 07-14-[address] LUISANA FISHER . Facility:[facility] Start: 07-13-2022 End: 08-11-2022 ambulatory SHAIKH Kymberly DENIS Facility:[facility] Start: 07-12-2022 End: 07-13-[address] LUISANA FISHER . Facility:[facility] Start: 06-13-2022 End: 07-12-2022 ambulatory CAMACHO H FAWWAAlysa Facility:[facility] Start: 05-27-2022 End: 05-28-2022 ambulatory LUIZ SAMSA . Facility:[facility] Start: 05-19-2022 End: 05-20-2022 ambulatory LUIZ SAMSA . Facility:[facility] Start: 05-13-2022 End: 06-12-2022 ambulatory CAMACHO H CIRA Facility:[facility] Start: 04-20-2022 End: 04-21-2022 ambulatory LUIZ SAMSA . Facility:[facility] Start: 04-12-2022 End: 05-12-2022 ambulatory CAMACHO H CIRA Facility:[facility] Start: 03-30-2022 End: 03-30-[address] LUISANA FISHER . Facility:[facility] Start: 03-12-2022 End: 04-09-2022 ambulatory SHAIKH Kymberly DENIS Facility:[facility] Start: 02-25-2022 End: 02-25-[address] LUISANA FISHER . Facility:[facility] Start: 02-24-2022 End: 02-25-[address] LUISANA FISHER . Facility:[facility] Start: 10-07-2021 End: 10-07-2021 ambulatory Hong Nevarez Other [employer] Other Start: 10-07-2021 Office outpatient visit 15 minutes Hong Nevarez [facility] Start: 08-26-2021 End: 08-26-2021 ambulatory Hong Nevarez Other [employer] Other Start: 08-26-2021 Office outpatient ne w 45 minutes Hong [facility] Start: 10-11-2020 End: 10-13-2020 Evaluation and management of inpatient ZANE MCGUIRE Facility:[facility] Procedures Date Procedure Procedure Detail Performing Clinician Start: 05-02-2024 Radionuclide three-p hase bone study MD Shaikh Denis Work Phone: Start: 10-11-2023 XR pre/post mri xray MD Shaikh Denis Work Phone: Start: 10-11-2023 MR lumbar spine wo con MD Shaikh Denis Work Phone: Start: 09-20-2021 Cardiac pacemaker, d evice (physical object) Ortega NILL Comment on above: Dr. Kaur Start: 10-13-2020 [...] of right tot al knee replacement Ortega NILL Start: 09-12-2001 History of left tota l knee replacement Ortega NILL Appendectomy Ortega NILL Arthroscopy of knee Ortega NILL Comment on above: 06/2012 Arthroscopy of shoulder Brice aeankur NILL Comment on above: left shoulder tear r epaired 08/25 Cardiac catheter (ph ysical object) Ortega NILL Comment on above: 12/21/ mild CAD Colonoscopy Ortega NILL Comment on above: 2012 repeat 10 years Ligation of fallopian tube M armando PARKL Repair of musculoten dinous cuff of shoulder Ortega ALEXANDER Comment on above: right Total abdominal hyst erectomy with bilateral salpingo-oophorectomy Ortega ALEXANDER Plan of Treatment Date Care Activity Detail Author Start: 09-12-2027 Screening for malign ant neoplasm of colon [facility] Start: 09-06-2024 Medicare Annual Well ness (AWV) Medicare Annual Wellness (AWV) [facility] Start: 11-07-2023 End: 11-07-2023 Patient encounter procedure 11/07/2023 2:30 PM EST Office Visit [facility] [address] [place] [phone] Shaikh Denis MD [address] [place] [phone] [facility] Start: 10-17-2023 End: 10-17-2023 Patient encounter procedure 10/17/2023 10:15 AM EST Office Visit [facility] [address] [place] [phone] Shaikh Denis MD [address] [place] [phone] Arrived [facility] Comment on above: Arrived Start: 1945 Screening for malign ant neoplasm of colon [facility] Immunizations Immunization Date Immunization Notes Care Provider Fa cili 08-25-2023 influenza virus vacc ine, unspecified formulation Ortega ALEXANDER [facility] [place] 07-08-2022 influenza virus vacc ine, unspecified formulation Ortega ALEXANDER [facility] 08-20-2021 influenza virus vacc ine, unspecified formulation Ortega ALEXANDER [facility] 08-20-2021 pneumococcal polysaccharide vaccine, 23 valent Ortega NILL [facility] 11-18-2020 SARS-CoV-2 (COVID-19 ) mRNA-1273 vaccine Ortega NILL [facility] 10-20-2020 SARS-CoV-2 (COVID-19 ) mRNA-1273 vaccine Ortega NILL [facility] 08-04-2020 influenza virus vacc ine, unspecified formulation Ortega NILL [facility] 08-04-2020 pneumococcal conjuga te vaccine, 13 valent Ortega NILL [facility] 08-06-2019 influenza virus vacc ine, unspecified formulation Ortega NILL [facility] 07-05-2017 influenza virus vacc ine, unspecified formulation Ortega NILL [facility] 07-05-2017 pneumococcal conjuga te vaccine, 13 valent Ortega NILL [facility] 06-29-2016 influenza virus vacc ine, unspecified formulation Ortega NILL [facility] 06-25-2015 influenza virus vacc ine, unspecified formulation Ortega NILL [facility] 06-12-2015 influenza virus vacc ine, unspecified formulation Ortega NILL [facility] 07-12-2014 influenza virus vacc ine, unspecified formulation Ortega NILL [facility] 08-07-2013 influenza virus vacc ine, unspecified formulation Ortega NILL [facility] Payers Date Payer Category Payer Private Health Insurance 2023 Medicare [id number] 2023 Self-pay [id number] 2023 Managed Care HMO (unspecified) OSEI FRANZ [id number] 2023-Present [address] [place] [address] HMO [id number] 2007 Medicare MEDICARE MEDICAR E PART B [id number] 2007-Present [address] [address] [place] [address] Medicare [id number] 1959 Medicare [id number] 1959 Private Health Insurance [facility] [id number] 1947 Unknown [id number] 2.16.840.1.439582.3.579.2. 647 1947 Unknown [id number] 2.16.840.1.515675.3.579.2. 593 1947 Unknown [id number] 2.16.840.1.512312.3.579.2. 593 1947 Unknown [id number] 2.16.840.1.373695.3.579.2. 593 1947 Unknown [id number] 2.16.840.1.111344.3.579.2. 593 1947 Unknown [id number] 2.16.840.1.153456.3.579.2. 593 1947 Unknown [id number] 2.16.840.1.989104.3.579.2. 593 1947 Unknown [id number] 2.16.840.1.373359.3.579.2. 593 1947 Unknown [id number] 2.16.840.1.180118.3.579.2. 593 1947 Unknown [id number] 2.16.840.1.091346.3.579.2. 593 1947 Unknown [id number] 2.16.840.1.658094.3.579.2. 593 1947 Unknown [id number] 2.16.840.1.877352.3.579.2. 593 1947 Unknown [id number] 2.16.840.1.708873.3.579.2. 593 1947 Unknown [id number] 2.16.840.1.461431.3.579.2. 593 1947 Unknown [id number] 2.840.1.960133.3.579.2. 593 1947 Unknown [id number] 2.16.840.1.883976.3.579.2. 593 1947 Unknown [id number] 2.16.840.1.866744.3.579.2. 593 1947 Unknown [id number] 2.16.840.1.384746.3.579.2. 593 1947 Unknown [id number] 2.16840.1.169936.3.579.2. 593 1947 Unknown [id number] 2.16.840.1.518909.3.579.2. 593 1947 Unknown [id number] 2.16.840.1.527092.3.579.2. 593 1947 Unknown [id number] 2.16.840.1.800659.3.579.2. 593 1947 Unknown [id number] 2.16.840.1.736823.3.579.2. 593 1947 Unknown [id number] 2.16.840.1.433401.3.579.2. 593 1947 Unknown [id number] 2.16.840.1.330573.3.579.2. 593 1947 Unknown [id number] 2.16.840.1.228127.3.579.2. 593 1947 Unknown [id number] 2.16.840.1.440121.3.579.2. 593 1947 Unknown [id number] 2.16.840.1.905545.3.579.2. 727 1947 Unknown [id number] 2.16.840.1.873280.3.579.2. 727 1947 Unknown [id number] 2.16.840.1.158625.3.579.2. 1259 1947 Unknown [id number] 2.16.840.1.005751.3.579.2. 1259 1947 Unknown [id number] 2.16.840.1.226650.3.579.2. 1259 1947 Unknown [id number] 2.16.840.1.536789.3.579.2. 1259 1947 Unknown [id number] 2.16.840.1.548265.3.579.2. 1259 1947 Unknown [id number] 2.16.840.1.000438.3.579.2. 1259 1947 Unknown [id number] 2.16.840.1.729636.3.579.2. 1259 1947 Unknown [id number] 2.16.840.1.175671.3.579.2. 1259 1947 Unknown [id number] 2.16.840.1.029240.3.579.2. 1259 1947 Unknown [id number] 2.16.840.1.070724.3.579.2. 1259 1947 Unknown [id number] 2.16.840.1.644950.3.579.2. 196 1947 Unknown [id number] 2.16.840.1.124544.3.579.2. 196 1947 Unknown [id number] 2.16.840.1.769844.3.579.2. 196 1947 Unknown [id number] 2.16.840.1.283942.3.579.2. 196 Medicare Medicare Outpatient [id number] Unknown [place] [id number] Unknown [id number] 2.16.840.1.361390.3.579.2. 531 Unknown [id number] 2.16840.1.896404.3.579.2. 531 Unknown [id number] 2.16.840.1.637054.3.579.2. 531 Unknown [id number] 2.16840.1.197965.3.579.2. 531 Unknown [id number] 2.16840.1.260272.3.579.2. 531 Unknown [id number] 2.16840.1.995944.3.579.2. 531 Social History Date Type Detail Facility Start: 08-30-2023 End: 09-06-2023 Sex Assigned At [facility] Start: 1945 Sex Assigned At Female [facility] Start: 08-18-2023 End: 03-02-2024 Tobacco [...] Healthcare How often do you att end lutheran or scientology services? Patient refused [facility] Do you belong to any clubs or organizations such as lutheran groups, unions, fraternal or athletic groups, or [...] [facility] Start: 04-27-2013 [facility] (finding) [facility] Functional Status Date Assessment Result Facility 03-02-2024 Functional Status N/A [facility] [place] Clinical Notes 08-26-2021 to 03-02-2024 Note Date & Type Note Facility 03-02-2024 Note Chief Complaint consultation for anemia HPI Staff 78 year old female presents on consultation from [facility] for anemia. Labs completed yesterday with [...] PSVT, spinal stenosis, cervical radiculopathy; referred from [facility] for anemia, low iron, and [...] (paroxysmal supraventricular t (more content not included)... [facility] Comment on above: Result Comment: Elec tronically [...] other systems reviewed and are negative. [facility] 01-17-2024 Note Cardiovascular Medic [facility] SUBJECTIVE Chief Complaint Patient presents with Atrial Fibrillation Breann Starks is a 78 y.o. female here for follow-up. HPI PMHx: A-fib, atrial tachycardia s/p ablation 2005, sick sinus syndrome s/p PPM 10/2020 dual-chamber [employer], COPD, mild CAD s/p cardiac cath 2010, SHAWANDA noncompliant with mask, and obesity. She has been doing well since last seen. No significant changes. Denies c/o CP, dyspnea, orthopnea, PND, LE edema, dizziness/LH, palpitations, syncope. Patient Active Problem List Diagnosis Disorder of bursae of shoulder region Chronic obstructive lung disease (CMS/HCC) Atherosclerosis of ambler coronary artery of ambler heart without angina pectoris Diaphragmatic hernia Edema [...] Monocytes Absolu (more content not included)... [facility] 07-05-2023 Note [facility] Consult Note Reason [...] sick sinus syndrome s/p PPM 10/2020 dual-chamber [employer], COPD, mild CAD s/p cardiac cath [...] could not afford DOAC. Patient underwent dual-chamber [employer] pacemaker placement on 10/13/2020. On subsequent [...] knees Hypocalcemi (more content not included)... [facility] 10-07-2021 Evaluation note Encounter Date Diagnosis Assessment Notes Sep, LOJA (nonalcoholic steatohepatitis ) (ICD-10 - K75.81) OBTAIN FIBROSURE RESULTS FROM [facility] RE[facility]UR[facility] ON RESULTS PT ENCOURAGED WEIGHT LOSS RTO ONE YEAR WITH LABS ANNUALLY Sep, Unspecified cirrhosis of liver (ICD-10 - K74.60) [employer] Other 12-15-2021 Evaluation note* Encounter Date Diagnosis Assessment Notes Treatment Notes Treatment Clinical Notes Aug, Nonalcoholic steatohepatitis (LOJA) (ICD-10 - K75.81) RTO 6-8 WEEKS Aug, Unspecified cirrhosi s of liver (ICD-10 - K74.60) Aug, Morbid obesity (ICD- 10 - E66.01) [employer] Other Evaluation + Plan note No data available for this section [facility] Evaluation noteNo assessment information available [facility] Work Phone: History general Narrative - [...] Surgical History pacemaker Hospitalization History see above [employer] Other Hospital Discharge instructions No data available for this section [facility] Progress note No data available for this section [facility] Summary Purpose Family History No Family History [...] Chief Complaint m25.512 Chief Complaint m25.512 M25.512 Chief Complaint m25.512 M25.512 m25.512 z96.612 Additional Source Comments INFORMATION SOURCE (unrecogn ized section and content) DATE CREATED AUTHOR 10/23/2021 [facility] DATE CREATED AUTHOR AUTHOR'S ORGANIZ ATION 01/22/2022 [facility] DATE CREATED AUTHOR AUTHOR'S ORGANIZ ATION 02/18/2023 [facility] DATE CREATED AUTHOR AUTHOR'S ORGANIZ ATION 03/08/2024 [facility] DATE CREATED AUTHOR AUTHOR'S ORGANIZ ATION 03/11/2024 [facility] DATE CREATED AUTHOR AUTHOR'S ORGANIZ ATION 04/22/2024 [facility] EPIC DATE CREATED AUTHOR AUTHOR'S ORGANIZ ATION 04/30/2024 [facility] DATE CREATED AUTHOR AUTHOR'S ORGANIZ ATION 05/04/2024 [facility] REASON FOR VISIT (unrecogniz [...] October 11, 2023 End: October 11, 2023 Mate Relief Relationship Specialty Start Date End Date Shaikh [...] April 10, 2024 End: April 10, 2024 Team Status: Inactive Member Role Status Dates Shaikh Cira MD Primary Care Provider Active Start: May 02, 2024 End: May 02, 2024 Pedro Pablo Cruz PA-C Attending Provider Active S tart: May 02, 2024 End: May 02, 2024 Goals (unrecognized section and content) Goals [...] BE BASED ON THE PRIMARY CLINICAL RECORDS. [employer] provides no warranty or guarantee of the accuracy or completeness of information in this document.
[2024-05-09 09:03] LABS: Basophils Percent Auto 0.6 % (0.2-2.0); Eosinophils Absolute Auto 0.1 10^3/uL (0.0-0.7); Hematocrit 32.9 % (36.0-48.0); Hemoglobin 9.7 g/dL (12.0-16.0); Immature Granulocytes Abs Auto 0.02 10^3/uL (0.00-0.03); Immature Granulocytes Pct Auto 0.3 % (0.0-0.5); Lymphocytes Absolute Auto 1.4 10^3/uL (1.2-3.8); Lymphocytes Percent Auto 20.4 % (20.5-60.0); Mean Corpuscular HGB Conc 29.5 g/dL (29.9-35.2); Mean Corpuscular Hemoglobin 22.8 pg (26.7-34.0); Mean Corpuscular Volume 77.4 fL (81.0-99.0); Mean Platelet Volume 8.5 fL (9.5-13.5); Monocytes Absolute Auto 0.7 10^3/uL (0.3-0.8); Monocytes Percent Auto 9.8 % (1.7-12.0); Neutrophils Absolute Auto 4.7 10^3/uL (1.4-6.5); Neutrophils Percent Auto 67.9 % (43.0-75.0); Platelet Count 278 10^3/uL (150-450); Red Blood Count 4.25 10^6/uL (4.20-5.40); Red Cell Distribution Width 19.6 % (11.0-15.0)
[2024-05-10 13:10] LABS: Transferrin 319 mg/dL (192-364)
== END 2024-05-09 08:24 | disposition home or self-care (01) ==
LOC: LAB 08:24
PROVIDERS: PCP Internal Medicine; Visit Provider Internal Medicine
DX: D50.0 Iron deficiency anemia secondary to blood loss (chronic) (principal)
CPT/HCPCS: 36415; 82728; 83540; 83550; 84466; 85025

== ENCOUNTER 2024-05-09 08:28 | Outpatient (OUT) | payer MEDICARE, SELFPAY ==
[2024-05-09 09:13] LABS: Erythrocyte Sedimentation Rate >130 mm/hr (<=30)
[2024-05-09 10:37] LABS: C Reactive Protein 3.07 mg/dL (<=0.50)
== END 2024-05-09 08:29 | disposition home or self-care (01) ==
LOC: LAB 08:29
PROVIDERS: PCP Internal Medicine; Visit Provider Personal Emergency Response Attendant
DX: D50.0 Iron deficiency anemia secondary to blood loss (chronic) (principal); M25.512 Pain in left shoulder
CPT/HCPCS: 36415; 82728; 83540; 83550; 84466; 85025; 85652; 86140

== ENCOUNTER 2024-05-25 15:48 | Emergency (ER) | payer MEDICARE, SELFPAY ==
[2024-05-25 15:52] VITALS: BP 165/75; PULSE 73; TEMP 36.9; O2SAT 95; BMI 44.4
--- OUTSIDE RECORDS SUMMARY | 2024-05-25 15:57 | XMS_ITS | CCD ---
Author Organization [facility] CliniSynm Care Team Providers Care Centrex Radio Operator Name Role Phone ZANE MCGUIRE Admitting Unavailable YANCY HENNESSY Referring Unavailable LUISANA JOHNSON Primary Care Unavailable ZANE MCGUIRE Attending Unavailable YANCY HENNESSY Surgeon Unavailable OK Procedure Practitioner Unavailab Hong Adler Unavailable JOHNSON ., DR LUISANA Jarquin Primary Care Unavailable JOHNSON ., DR LUISANA Jarquin Admitting Unavailable JOHNSON ., DR LUISANA Jarquin Attending Unavailable JOHNSON ., DR LUISANA Jarquin Consulting Unavailable JOHNSON ., DR LUISANA Jarquin Primary Care Unavailable FAWWAD, SAHU H Attending Unavailable FAWWAD, SAHU H Admitting Unavailable FAWWAD, SAHU H Admitting Unavailable FAWWAD, SAHU H Attending Unavailable JOHNSON ., DR LUISANA Jarquin Primary Care Unavailable JOHNSON ., DR LUISANA Jarquin Admitting Unavailable JOHNSON ., DR LUISANA Jarquin Primary Care Unavailable JOHNSON ., DR LUISANA Jarquni Attending Unavailable JOHNSON ., DR LUISANA Jarquin Consulting Unavailable JOHNSON ., DR LUISANA Jarquin Admitting Unavailable JOHNSON ., DR LUISANA Jarquin Primary Care Unavailable JOHNSON ., DR LUISANA Jarquin Attending Unavailable JOHNSON ., DR LUISANA Jarquin Consulting Unavailable FAWWAD, SAHU H Attending Unavailable FAWWAD, SAHU H Admitting Unavailable JOHNSON ., DR LUISANA Jarquin Primary Care Unavailable FAWWAD, SAHU H Attending Unavailable FAWWAD, SAHU H Admitting Unavailable JOHNSON ., DR LUISANA Jarquin Primary Care Unavailable JOHNSON ., DR LIUSANA Jarquin Admitting Unavailable JOHNSON ., DR LUISANA Jarquin Attending Unavailable JOHNSON ., DR LUISANA Jarquin Consulting Unavailable JOHNSON ., DR LUISANA Jarquin Primary Care Unavailable ZIREGINO, DR PAULA Bishop Consulting Unavailable SAMSA ., LUIZ Admitting Unavailable SAMSA ., LUIZ Attending Unavailable SAMSA ., LUIZ Consulting Unavailable JOHNSON ., DR LUISANA Jarquin Primary Care Unavailable FAWWAD, SAHU H Attending Unavailable FAWWAD, SAHU H Admitting Unavailable JOHNSON ., DR LUISANA Jarquin Primary Care Unavailable FAWWAD, SAHU H Attending Unavailable FAWWAD, SAHU H Admitting Unavailable JOHNSON ., DR LUISANA Jarquin Primary Care Unavailable FAWWAD, SAHU H Attending Unavailable FAWWAD, SAHU H Admitting Unavailable JOHNSON ., DR LUISANA Jarquin Primary Care Unavailable FAWWAD, SAHU H Attending Unavailable FAWWAD, SAHU H Admitting Unavailable JOHNSON ., DR LUISANA Jarquin Primary Care Unavailable FAWWAD, SAHU H Attending Unavailable FAWWAD, SAHU H Admitting Unavailable REQUEST, DR NONE LISTED Primary Care Unavaila ble JOHNSON ., DR LUISANA Jarquin Primary Care Unavailable FAWWAD, SAHU H Attending Unavailable FAWWAD, SAHU H Admitting Unavailable MISC, DR ODELL Admitting Unavailable MISC, DR ODELL Attending Unavailable MISC, DR ODELL Consulting Unavailable JOHNSON ., DR LUISANA Jarquin Primary Care Unavailable SAMSA ., LUIZ Admitting Unavailable SAMSA ., LUIZ Attending Unavailable ZIEBAMAURY, DR PAULA Bishop Consulting Unavailable JOHSNON ., DR LUISANA Jarquin Primary Care Unavailable SAMSA ., LUIZ Consulting Unavailable GIEDRAITIS, ANDRIUS Admitting Unavailable GIEDRAITIS, ANDRIUS Attending Unavailable STEPHANIE, DR PAULA Bishop Consulting Unavailable REQUEST, DR NONE LISTED Primary Care Unavaila ble GIEDRAITIS, ANDRIUS Consulting Unavailable JOHNSON ., DR LUISANA Jarquin Admitting Unavailable JOHNSON ., DR LUISANA Jarquin Primary Care Unavailable JOHNSON ., DR LUISANA Jarquin Attending Unavailable JOHNSON ., DR LUISANA Jarquin Consulting Unavailable STEPHANIE, DR PAULA Bishop Consulting Unavailable HAY ., DR DE LEON Admitting Unavailable HAY ., DR DE LEON Attending Unavailable JOHNSON ., DR LUISANA Jarquin Primary Care Unavailable GRECHNY ., DANIELLE SHAIKH Consulting Unavailpriyanka jarquin RIVER ., KAYLEY Admitting Unavailable RIVER ., KAYLEY Attending Unavailable DIGHTON, DR HONG Morgan Consulting Unavailable JOHNSON ., DR LUISANA Jarquin Primary Care Unavailable GRECHNY ., DANIELLE SHAIKH Consulting UnavailSALOME Mondragon Consulting Unavailable RIVER ., KAYLEY Consulting Unavailable JBARA, YASER Consulting Unavailable SAMSA ., LUIZ Admitting Unavailable SAMSA ., LUIZ Attending Unavailable SAMSA ., LUIZ Consulting Unavailable JOHNSON ., DR LUISANA Jarquin Primary Care Unavailable JOHNSON ., DR LUISANA Jarquin Admitting Unavailable JOHNSON ., DR LUISANA Jarquin Primary Care Unavailable JOHNSON ., DR LUISANA Jarquin Attending Unavailable JOHNSON ., DR LUISANA Jarquin Consulting Unavailable GIEDRAITIS, ANDRIUS Consulting Unavailable GIEDRAITIS, ANDRIUS Admitting Unavailable GIEDRAITIS, ANDRIUS Attending Unavailable HERSON CANTU Primary Care Unavailable JOHNSON ., DR LUISANA Jarquin Primary Care Unavailable SHAIKH Kymberly DENIS Attending Unavailable SHAIKH DENIS Admitting Unavailable SAMSA ., LUIZ Admitting Unavailable SAMSA ., LUIZ Attending Unavailable SAMSA ., LUIZ Consulting Unavailable JOHNSON ., DR LUISANA Jarquin Primary Care Unavailable THANG Clement Attending Provider MD Cira [facility] Primary Care Provider [phone] THANG Clement Attending Provider Cira CUBA [facility] Provider YANCY HENNESSY Referring Unavailable YANCY HENNESSY Attending Unavailable YANCY HENNESSY Referring Unavailable NICANOR CANNON Attending Unavailable Ortega ALEXANDER Attending Unavailable SERGE DENISIKH Referring Unavailable Ortega ALEXANDER Attending Unavailable MD Cira [facility] Care Provider [phone] DO James Jones Attending Provider [phone] Katherine CUBA, Starlarius Sainz Attending Unavailable Giedrajuliette CUBA, Andrius Vrenee Attending Unavailable Githeresaraitis , Andrius Vrenee Attending Unavailable Giedraitis , Andrius Vrenee Attending Unavailable YOLY Cruz Attending Provider Cira [facility] Unavailable Kayley Reeder Admitting Unavailable Kayley Reeder Attending Unavailable Serge Denisikh Primary Care Unavailable James Jones Admitting Unavailable James Jones Attending Unavailable Dominiquenmvaleria [facility] Care Unavailable James Jones Admitting Unavailable James Jones Attending Unavailable Fafrancy, Sahu Primary Care Unavailable Pedro Pablo Cruz Admitting Unavailable Pedro Pablo Cruz Attending Unavailable Fafrancy, Primary Care Unavailable Urbano, Claire Britton Admitting Unavailable Urbano, Claire E Attending Unavailable Fawwad, Sahu Primary Care Unavailable Urbano, Claire E Admitting Unavailable Urbano, Claire E Attending Unavailable FAWWAD, SAHU Attending Unavailable FAWWAD, SAHU Attending Unavailable FAWWAD, SAHU Attending Unavailable FAWWAD, SAHU Attending Unavailable FAWWAD, SAHU Attending Unavailable FAWMADHURI, SAHU Attending Unavailable CIRA, Attending Unavailable PEDRO PABLO CRUZ Attending Unavailable PEDRO PABLO CRUZ Referring Unavailable JR. FRANK GEORGE C Attending Unavaila iker Johnson MD, Luisana Gaspar Primary [facility] Provider [phone] Pedro Pablo Cruz MD Unavailable LUISANA JOHNSON Primary Care Unavailable BOO BUCHANAN Attending Unavailable PEDRO PABLO CRUZ Referring Unavailable LUISANA JOHNSON [facility] Unavailable BOO BUCHANAN Referring Unavailable Allergies Allergy Classification Reported Allergen(s) Allergy Type Date of Onset Reaction(s) Facility NSAIDs (1 source) meloxicam; Translations: [Mobic] Drug Allergy [facility] Repository Unclassified (1 source) No Known Medication Allergies; Translations: [No Known Medication Allergies] Propensity to adverse reactions (disorder) [facility] Repository (1 source) novacaine; Translations: [novacaine] Propensity to adverse reactions (disorder) 2 [facility] Repository (2 sources) NSAIDs Propensity to adverse reactions HEART ISSUES [employer] Other (7 sources) Adhesive agent; Translations: [adhesive] Allergy to substance 4 [facility] (4 sources) NSAIDS (Non-Steroidal Anti-Inflamma; Translations: [NSAIDS (Non-Steroidal Anti-Inflamma] Allergy to substance 4 HEART [facility] Medications Current Medications Medication Drug Class(es) Dates Sig (Normalized) Sig (Original) acetaminophen 325 mg / HYDROcodone bitartrate 5 mg oral tablet (4 sources) Opioid Agonist Start: 03-01-2024 take 1 tablet by mouth twice daily acetaminophen-hyd rocodone 325 mg-5 mg oral tablet 1 tab(s), Oral, BID, Refill(s) 0 Start Date: 03/01/24 Status: Ordered take 1 tablet by dirk th every eight hours as needed HYDROcodone-acetaminophen (NORCO) 5-325 mg per tablet Take 1 tablet by mouth three times a day as needed for pain. Active apixaban 5 mg oral tablet (8 sources) Factor Xa Inhibitor Start: 05-05-2023 End: 06-11-2024 apixaban (ELIQUIS) 5 mg tab(s) Take 5 mg by mouth. 05/05/2023 06/11/2024 Active ascorbic acid 100 mg oral tablet (1 source) Vitamin C take 1 tablet by mouth in the morning Ascorbic Acid (vitamin C) 100 MG tablet Take 100 mg by mouth in the morning. 0 Active baclofen 10 mg oral tablet (4 sources) gamma-Aminobut yric Acid-ergic Agonist Start: 03-01-2024 take 1 tablet by mouth three times daily baclofen 10 mg Tab 10 mg = 1 tab(s), Oral, TID, Refills(s) 0 Start Date: 03/01/24 Status: Ordered 120 actuat budesonide 0.16 mg/actuat / formoterol fumarate 0.0045 mg/actuat metered dose inhaler (2 sources) Corticosteroid , beta2-Adrenerg ic Agonist take 2 puff(s) by inhalation twice daily Symbicort 160-4.5 MCG/ACT 2 puffs Inhalation Twice a day Active Centrum Silver (2 sources) Centrum Silver Orally *please review for potential _update for e-prescription and drug interaction check* Active Centrum Women 50 Plus Multigummies oral tablet, chewable (1 source) Start: 01-11-2023 Centrum Women 50 Plus Multigummies oral tablet, chewable Refill(s) 0 Start Date: 01/11/23 Status: Ordered cholecalciferol 0.125 mg oral tablet (6 sources) Vitamin D Start: 11-16-2023 Cholecalciferol (Vitamin D3) Active 5000 UNIT PO November 16, 2023 1:00am take 1 tablet by dirk th once daily in the morning Cholecalciferol, Vitamin D3, 125 mcg (5, 000 unit) cap Take 1 tablet by mouth every morning. Active ferrous sulfate 325 mg delayed release oral tablet (3 sources) Start: 03-21-2024 End: 06-19-2024 ferrous sulfate 325 mg (65 mg iron) EC tablet Take 325 mg by mouth. 03/21/2024 06/19/2024 Active flecainide acetate 100 mg oral tablet (10 sources) Antiarrhythmic Start: 01-11-2023 take 1 tablet by mouth every twelve hours flecainide (TAMBOCOR) 100 mg tablet Take 100 mg by mouth every 12 hours. 01/11/2023 Active take 1 tablet by mouth once gabi [...] day Active gabapentin 300 mg oral capsule (4 sources) Anti-epileptic Agent Start: 09-06-2023 End: 12-05-2023 take [...] omeprazole 40 mg delayed release oral capsule (10 sources) Proton Pump Inhibitor Start: omeprazole (PRILOSEC) 40 mg capsule 02/15/2023 Active take 1 capsule by [facility] every twenty-four hours Omeprazole 40 MG 1 capsule Orally Once a day Active potassium chloride 10 meq extended release oral capsule (2 sources) take 1 capsule by mouth every twenty-four hours Potassium Chloride 10 MEQ 1 capsule with food Orally Once a day Active spironolactone 25 mg oral tablet (8 sources) Aldosterone Antagonist Start: Spironolactone Active 25 MG PO November 16, 2023 1:00am 24 hr verapamil hydrochloride 180 mg extended release oral capsule (10 sources) Calcium Channel Ozzy Start: take 1 capsule by mouth once daily [...] 02/14/2023 02/14/2024 Active take 1 capsule by [facility] every twenty-four hours Verapamil HCl ER [...] # 90 tab(s), Refills(s) 0, Pharmacy: [facility]/pharmacy #[id number], 141, cm, 01/11/23 10:30:00 EDT, Height/Length [...] unspecified; Translations: [Centrilobular emphysema] Onset: 2 Chronic Complication of device; implant or graft (1 source) 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; Translations: [Pain due to internal orthopedic prosthetic devices, implants and grafts, initial encounter] 05-22-2024 Episodic Conduction disorders (6 sources) Presence of cardiac pacemaker; Translations: [Sinus node dysfunction] Onset: 1 03-01-2024 Chronic Congestive heart failure; nonhypertensive (2 sources) Chronic diastolic (congestive) heart failure; Translations: [Congestive heart failure] Onset: 3 03-01-2024 Chronic Coronary atherosclerosis and other heart disease (3 sources) Atherosclerotic heart disease of platinum coronary artery without angina pectoris; Translations: [Coronary [...] Onset: 3 Episodic Other aftercare (1 source) 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; Translations: [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 USE 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] Onset: 3 Episodic Other aftercare (1 source) Other custodial (current) drug therapy; Translations: [OTH CHILD DEVELOPMENT INSTRUCTOR CURRENT DRUG THERAPY] Onset: 3 Episodic Other [...] lower leg] Onset: 3 09-06-2023 Episodic Other non-traumatic joint disorders (3 sources) Pain in left shoulder; Translations: [Pain in joint, shoulder region] Onset: 4 05-22-2024 Episodic Other nutritional; endocrine; and metabolic disorders [...] Test Name Value Interpretation Reference Range Facility [facility] 05-22-2024 CNOV Office Visit (LOORRM) BREANN STARKS ([id number]) 1945 F Date Time Provider Department 05/22/24 1:00 PM BOO BUCHANAN During your visit today, we recorded the following information about you: Weight Height 99.8 kg 1.499 m Boo Buchanan PA-C 05/22/2024 1:53 PM Signed This document has been created with the use of voice recognition technology. It may contain inaccuracies: misspellings, inaccurate syntax or word sense that escaped review. The patient is seen at the request of Pedro Pablo Cruz PA-C for evaluation and an opinion regarding treatment. A copy of this report will remain in the shared medical record CHIEF COMPLAINT: Breann Starks is a 78 year old female who presents today for new evaluation of left shoulder pain. HISTORY OF PRESENT ILLNESS: PAIN EVALUATION 05/22/2024 1306 Pain Level: 10 Pain Location: Shoulder-Left Description: Stabbing;Burning Duration Amount of Time: 3 Duration Units: Months Frequency: Intermittent Intervention/Comfort measure: Reposition;Relaxatio n;Medication;Positio india baclofen, percocet HISTORY: Breann Starks has complains of left shoulder pain s/p left reverse total shoulder arthroplasty from [address] Lazar. Past medical history of A-fib, COPD, obesity. States she has had a history of pain postoperatively. She was sent to spine care for suspicion of cervical radiculopathy initially. Her shoulder pain has persisted to the point recently when she has sought care from her primary care. Her primary care ordered a bone scan of the left shoulder and radiographs. There has been some concern for periprosthetic lucencies about the glenoid components and uptake on the bone scan in this region. She was recommended for second opinion at [facility]. She also had a CRP and ESR taken recently which were elevated. WBCs were normal. No other musculoskeletal complaints ROS: REVIEW OF SYSTEMS: Constitutional: patient denies any recent fever or significant change in weight Cardiovascular: patient denies any chest pain at rest Respiratory: patient denies any shortness of breath or cough Gastrointestinal: patient denies any current abdominal discomfort Integumentary: patient denies any recent skin changes Musculoskeletal: as noted in the HPI Neurologic: as noted in the HPI Endocrine: patient denies a current diagnosis of diabetes Hematologic/Lymphati c: on DOAC Psychologic: negative for any recent depression or anxiety issues SOCIAL HISTORY: Tobacco Use: Never FAMILY HISTORY: History reviewed. No pertinent family history. ALLERGIES: ALLERGIES Allergen Reactions Adhesive Swelling PAST MEDICAL HISTORY: PAST MEDICAL HISTORY No date: COPD (chronic obstructive pulmonary disease) ([facility]) SOCIAL HISTORY: Tobacco Use: Never EXAMINATION: GENERAL: Obese ORIENTATION: Alert and oriented to person place and time HABITUS: BMI 44 GAIT: Normal, the patient did not have trouble getting onto the exam table. left shoulder exam: skin intact; no erythema, no ecchymosis, possible effusion; difficult to assess secondary to body habitus Previous surgical scars well-healed Severe irritability with PROM Tenderness to palpation of globally-tender to the acromion, anterior joint capsule, proximal humerus, scapular girdle active less than passive ROM-50/neutral versus 90/30 Bicep with indeterminate course intact sensation to light touch distally good radial pulse no pain with neck ROM RADIOGRAPHS: XR Obtained today and personally reviewed by myself demonstrating status post left reverse total shoulder arthroplasty with some periprosthetic loosening along the glenoid component and superior glenoid screw. No signs of osteolysis about the humeral shaft. Status post left reverse NM three-phase bone scan full body: Uptake in the glenoid region and acromioclavicular region. Consistent with prosthetic loosening versus infection. IMPRESSION: Encounter Diagnosis ICD-10-CM 1. 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 ([facility]) T84.84XA CT SHOULDER WO IVCON LEFT Z96.612 2. Left shoulder pain, unspecified chronicity M25.512 XR SHOULDER ORTHO 4V AP/TRUE AP/LAT/OUTLET LEFT Procedures Plan: Patient presents with pain due to internal prosthesis of the left shoulder status post left reverse total shoulder arthroplasty. She is following up with Dr. Lazar tomorrow in office, despite being told by him he cannot take care of her operatively because he does not except her insurance. I have concerns for loosening of the glenoid component. Is unclear if there is infection present. The shoulder will need to be aspirated, will leave this up to upper extremity surgeon. They have been given the name González Dominikmerari he already, I explained this would be a good person to see for additional care if Dr. Lazar cannot take care of her. I ordered (more content not included)... Normal [facility] XR SHLDR 4V AP/HECTOR/LAT/OUTLE T LTon 05-22-2024 XR SHLDR 4V AP/HECTOR/LAT/OUTLET LT * * *Final Report* * * DATE OF EXAM: May 22 2024 1:23PM LZX 5604 - XR SHLDR 4V AP/HECTOR/LAT/OUTLET LT / PROCEDURE REASON: Left shoulder pain, unspecified chronicity * * * * Physician Interpretation * * * * HISTORY (as given from clinical provider): Left shoulder pain, unspecified chronicity . Additional history provided by the performing technologist (if any): --> chronic left shoulder pain with acute immobility for about 3 months TECHNIQUE: XR SHLDR 4V AP/HECTOR/LAT/OUTLET LT COMPARISON: None RESULT: Reverse total shoulder arthroplasty with expected postsurgical appearance. Mild osteoarthritis of the AC joint. Pacemaker in the left chest wall. No other significant abnormality. IMPRESSION: EXPECTED POSTOPERATIVE APPEARANCE Paid Search Manager: STEVE Transcribe Date/Time: May 22 2024 2:42P Dictated by : VILMA ABREU MD This examination was interpreted and the report reviewed and electronically signed by: VILMA ABREU MD on May 22 2024 2:42PM EST [id number] Normal [facility] XR Shoulder - left 4 Viewson 05-22-2024 IMPRESSION: EXPECTED POSTOPERATIVE APPEARANCE Paid Search Manager: STEVE Transcribe Date/Time: May 22 2024 2:42P Dictated by : VILMA ABREU MD This examination was interpreted and the report reviewed and electronically signed by: VILMA ABREU MD on May 22 2024 2:42PM EST DIVISION OF RADIOLOGY * * *Final Report* * * DATE OF EXAM: May 22 2024 1:23PM LZX 5604 - XR SHLDR 4V AP/HECTOR/LAT/OUTLET LT / PROCEDURE REASON: Left shoulder pain, unspecified chronicity * * * * Physician Interpretation * * * * HISTORY (as given from clinical provider): Left shoulder pain, unspecified chronicity . Additional history provided by the performing technologist (if any): --> chronic left shoulder pain with acute immobility for about 3 months TECHNIQUE: XR SHLDR 4V AP/HECTOR/LAT/OUTLET LT COMPARISON: None RESULT: Reverse total shoulder arthroplasty with expected postsurgical appearance. Mild osteoarthritis of the AC joint. Pacemaker in the left chest wall. No other significant abnormality. DIVISION OF RADIOLOGY Provider, [facility] [place] - 05/22/2024 * * *Final Report* * * DATE OF EXAM: May 22 2024 1:23PM LZX 5604 - XR SHLDR 4V AP/HECTOR/LAT/OUTLET LT / PROCEDURE REASON: Left shoulder pain, unspecified chronicity * * * * Physician Interpretation * * * * HISTORY (as given from clinical provider): Left shoulder pain, unspecified chronicity . Additional history provided by the performing technologist (if any): --> chronic left shoulder pain with acute immobility for about 3 months TECHNIQUE: XR SHLDR 4V AP/HECTOR/LAT/OUTLET LT COMPARISON: None RESULT: Reverse total shoulder arthroplasty with expected postsurgical appearance. Mild osteoarthritis of the AC joint. Pacemaker in the left chest wall. No other significant abnormality. IMPRESSION IMPRESSION: EXPECTED POSTOPERATIVE APPEARANCE Paid Search Manager: PSCHermelinda Transcribe Date/Time: May 22 2024 2:42P Dictated by : VILMA ABREU MD This examination was interpreted and the report reviewed and electronically signed by: VILMA ABREU MD on May 22 2024 2:42PM EST [facility] Radiology Study observation (narrative) [facility] XR Shoulder - left 4 ViewsOr dered By: Ccf Provider on 05-22-2024 [facility] NM bone 3 phaseon 05-02-2024 NM bone 3 phase [facility] Main [place] [address] [place] [address] Nuclear Medicine Report Signed Patient: Breann Starks MR#: [id number] 171 : 1945 Acct:[id number] Age/Sex: 78 / F ADM Date: 05/02/24 Loc: [place] Room: Type: [facility] Attending Dr: Pedro Pablo Cruz PA-C Copies to: YOLY Sanon Jeffrey S DO Ordering Provider: Pedro Pablo Cruz PA-C Date of Service: 05/02/24 NM/DE bone 3 phase: M25.512, Z96.612 Nuclear medicine [...] be degenerative. Plain film correlation. No hyperemia. DE/DE bone 3 phase IMPRESSION: Increased uptake of the left the glenoid. There may be concern for loosening. Correlate with plain film imaging. Increased uptake of the left acromion. May represent degenerative change. Fracture may be present in this region. Correlate with plain film imaging. Impression dictated by: Etienne Rhodes M.D.05/02/2024 2:44 PM Dictation Location: [place] [address] Transcribed By: [facility] 05/02/24 1444 Dictated By: Etienne Rhodes DO 05/02/24 1440 Signed By: 05/02/24 1444 Normal [facility] Lab Reportson 03-07-2024 Lab Reports [id number] #1.00TIFF Normal [facility] 36on 03-06-2024 36 Echo from 03/05/2024 reviewed by Bre Cannon CNP. She would like to start her on lasix 40mg daily, with BMP in 1 week. She spoke on the phone to Dr. Hennessy regarding her echo. Per Dr. Hennessy, patient is ok to proceed with EGD/colonoscopy. [...] to her pharmacy. BMP order faxed to [facility]. Breann verbalized understanding. Normal [facility] Consent for Procedure/Surger yon 03-05-2024 Consent for Procedure/Surgery [id number] #1.00TIFF [facility] Ambulatory Visit Summaryon 0 03-02-2024 Ambulatory Visit Summary BREANN STARKS :1945 Visit Date:03/02/2024 Ambulatory Visit Instructions Your Care Team Attending Physician - CATHERINE CUBA, Ortega Bishop Primary Care Physician - Cate JUÁREZ, Barbara Lemus Referring Physician - CIRA CUBA, [facility] This Is Your Medications List Contact [...] for choosing us for your care. Normal [facility] ED Note-Physicianon 03-02-20 24 ED Note-Physician [id number]# 1.00TIFF Normal [facility] Insurance Correspondenceon 0 03-02-2024 Insurance Correspondence [id number] 7#1.00TIFF Normal [facility] Lab Reportson 03-02-2024 Lab Reports [id number] #1.00TIFF [facility] [facility] 36on 01-25-2024 36 Patient called stating ever since her device was adjusted last month she's had this weird feeling in her throat. I called [employer] As[employer] from [employer] and he told me this feeling she's having should not be from her device. Patient informed. I suggested she see PCP for this. She verbalized understanding. Normal [facility] Office Visiton 01-17-2024 Follow-up visit [id number] Breann Starks 1945 F Date Provider Department Center 01/17/2024 NICANOR REGAN Family History Adopted: Yes Family history unknown: Yes Family Status - Relation Status Age at Mother Father Level of Service:59390 OK OFFICE/OUTPATIENT ESTABLISHED MOD MDM 30 MIN Reason for Visit and Comments: Atrial Fibrillation [80] Normal [facility] XR lumbar spine 6V w bending on 11-16-2023 XR lumbar spine 6V w bending [facility] [place] [address] XRay Report Signed Patient: Breann Starks MR#: [id number] 171 : 1945 Acct:[id number] Age/Sex: 77 / F ADM Date: 11/16/23 Loc: XD Room: Type: [facility] Attending Dr: Kayley PASCALC Copies to: THANG [...] Benton Jr., D.OMeena11/16/2023 4:37 PM Dictation Location: [place] [address] Transcribed By: [facility] 11/16/23 1637 Dictated By: Francisco J Benton Jr, DO 11/16/23 1636 Signed By: 11/16/23 1637 Normal [facility] MR lumbar spine wo [place] MR lumbar spine wo con [facility] [place] [address] XRay Report Signed Patient: Braenn Starks MR#: [id number] 171 : 1945 Acct:[id number] Age/Sex: 77 / F ADM Date: 10/11/23 Loc: Room: Type: [facility] Attending Dr: Claire DESIR Copies to: THANG Porter Ordering Provider: THANG Porter Date of Service: 10/11/23 MR/MR lumbar spine wo con: LUMBAR RADICULPATHY ([id number]) XR/XR pre/post mri xray: LUMBAR RADICULPATHY CLINICAL [...] Eleanor Reece M.D.10/11/2023 4:10 PM Dictation Location: [place] [address] Transcribed By: [facility] 10/11/23 1610 Dictated By: Eleanor Reece MD 10/11/23 1133 Signed By: 10/11/23 1610 Normal [facility] Office Visiton 07-05-2023 Follow-up visit [id number] Breann Starks Jonah 1945 F Date Provider Department Center 07/05/2023 YANCY IVERSON [facility] Family History Adopted: Yes Family history unknown: Yes Family Status - Relation Status Age at Mother Father Level of Service:16281 OK OFFICE/OUTPATIENT ESTABLISHED LOW MDM 20-29 MIN Normal [facility] XR LSPINE W_OBLS AND FLEX_EX Ton [...] and facet arthropathy. Electronically authenticated by: PAULA BROWN Date: 2023-01-31 11:34 Normal [facility] LIPID PROFILEon 12-16-2022 CHOL-HDL RATIO NORM SEE BELOW Normal [facility] Comment on above: Result Comment: 3.3 - 4.4 LOW RISK 4.4 - 7.1 AVERAGE RISK 7.1 - 11.0 MODERATE RISK >11.0 HIGH RISK Performed By: #### L IPID ####[facility] Pcpgxyyhmx6[address] [place] [id number]. Erasmo Smith Cholesterol [Mass/Vol] 105 mg/dL Normal <=200 Th [facility] Comment on above: Performed By: #### L IPID ####[facility] Dbhkkfaioj2520 [place] [id number]. Erasmo Smith Cholesterol in HDL [Mass/Vol] 48 mg/dL Normal 40-60 [facility] Comment on above: Performed By: #### L IPID ####[facility] Gmmefqzodo5608 [place] [address]Dr. Erasmo Smith Cholesterol in LDL [Mass/Vol] 48.2 mg/dL Normal [facility] Comment on above: Performed By: #### L IPID ####[facility] Vosxeuuglx8282 [place] [address]Dr. Erasmo Smith Cholesterol.total/Chol esterol in HDL [Mass ratio] 2.2 {ratio} Normal [facility] Comment on above: Performed By: #### L IPID ####[facility] Eovnmgklky2415 [place] [id number]. Erasmo Smith HDL NORMAL > or = 60 mg/dl - LOW CARDIOVASCULAR RISK <40 mg/dl - HIGH CARDIOVASCULAR RISK Normal [facility] Comment on above: Performed By: #### L IPID ####[facility] Rvbunlkhnd8251 [place] [address]Dr. Erasmo Smith LDL CALC NORMAL SEE BELOW Normal [facility] Comment on above: Result Comment: <100 mg/dl OPTIMAL 100 - 129 mg/dl NEAR OR ABOVE OPTIMAL 130 - 159 mg/dl BORDERLINE HIGH 160 - 189 mg/dl HIGH >190 mg/dl VERY HIGH Performed By: #### L IPID ####[facility] Ueyjxrkzog4693 [place] [id number]. Erasmo Smith Triglyceride [Mass/Vol] 44 mg/dL Normal <=150 [facility] Comment on above: Performed By: #### L IPID ####[facility] Ftdmtvfxps8229 [place] [address]Dr. Erasmo Smith VLDL CALC 8.8 mg/dL Normal [facility] Comment on above: Performed By: #### L IPID ####[facility] Gfatybkj[address] [place], [place] [address]Dr. Erasmo Smith CULTURE BLOODon 12-04-2022 Microscopic examination [...] Trimethoprim/Sulfame thoxazole <=20 S F Normal The [facility] Comment on above: Performed By: #### B LDCX1 ####[facility] Gzjkdbslyc[address] [place], [place] [address]Dr. Erasmo Smith BNPon 12-03-2022 Natriuretic peptide B (Bld) [Mass/Vol] 413.0 pg/mL Normal <=1,800.0 The [facility] Comment on above: Performed By: #### B MAIL SORTER #### [facility] Laboratory [address] [place] [address] [address] Erasmo Smith CBC AUTO DIFFon 12-03-2022 BASO # 0.0 103/ul Normal 0.0-0.1 The [facility] Comment on above: Performed By: #### C BC ####[facility] Ixnqioxees4442 [place] [address]DrMeena Smith Basophils/100 WBC (Bld) 0.2 % Normal 0.2-2.0 The [facility] Comment on above: Performed By: #### C BC ####[facility] Nkzplgxhuj8087 [place] [address]Dr. Erasmo Smith EO # 0.4 103/ul Normal 0.0-0.7 The [facility] Comment on above: Performed By: #### C BC ####[facility] Notwdmdnsh[address] [place], [place] [address]Dr. Erasmo Smith Eosinophils/100 WBC (Bld) 2.1 % Normal 0.9-7.0 The [facility] Comment on above: Performed By: #### C BC ####[facility] Zrvulsnakk[address] [place], [place] [address]Dr. Erasmo Smith Erythrocyte distribution width (RBC) [Ratio] 17.2 % Critically high 11.0-15.0 The [facility] Comment on above: Performed By: #### C BC ####[facility] Eppnuhxofp[address] [place], [place] [address]DrMeena Smith Hematocrit (Bld) [Volume fraction] 29.2 % Critically low 36.0-48.0 The [facility] Comment on above: Performed By: #### C BC ####[facility] Uqmaneriwp[address] [place], [place] [address]DrMeena Smith Hemoglobin (Bld) [Mass/Vol] 9.5 g/dL Critically low 12.0-16.0 The [facility] Comment on above: Performed By: #### C BC ####[facility] Uafzvrsxem[address] [place] [address]Dr. Erasmo Smith IG # 0.13 10e3/ul Critically high 0.00-0.03 The [facility] Comment on above: Performed By: #### C BC ####[facility] Zppjpwfiaf4673 [place] [address]Dr. Erasmo Smith IG % 0.8 % Critically high 0.0-0.5 The [facility] Comment on above: Performed By: #### C BC ####[facility] Lbnvffoaos8127 [place] [address]Dr. Erasmo Luis LYMPH # 1.8 103/ul Normal 1.2-3.8 The [facility] Comment on above: Performed By: #### C BC ####[facility] Jiddtuiaqf[address] [place], [place] [address]Dr. Erasmo Luis Lymphocytes/100 WBC (Bld) 10.3 % Critically low 20.5-60.0 The [facility] Comment on above: Performed By: #### C BC ####[facility] Feuntmpazw[address] [place], [place] [address]Dr. Erasmo Smith MANUAL DIFF REQ NO Normal The [facility] Comment on above: Performed By: #### C BC ####[facility] Weeliberxy[address] [place], [place] [address]Dr. Erasmo Smith MCH (RBC) [Entitic mass] 25.7 pg Critically low 26.7-34.0 The [facility] Comment on above: Performed By: #### C BC ####[facility] Dwtsrjrxph[address] [place], [place] [address]Dr. Erasmo Smith MCHC (RBC) [Mass/Vol] 32.5 g/dL Normal 29.9-35.2 The [facility] Comment on above: Performed By: #### C BC ####[facility] Gxffcdiuvi[address] [place], [place] [address]Dr. Erasmo Smith MCV (RBC) [Entitic vol] 79.1 fL Critically low 81.0-99.0 The [facility] Comment on above: Performed By: #### C BC ####[facility] Bnthzrgrro0735 [place] [id number]. Erasmo Smith MONO # 1.5 103/ul Critically high 0.3-0.8 The [facility] Comment on above: Performed By: #### C BC ####[facility] Fuclqjrdeh8957 [place] [address]Dr. Erasmo Smith Monocytes/100 WBC (Bld) 8.7 % Normal 1.7-12.0 The [facility] Comment on above: Performed By: #### C BC ####[facility] Egkvxkdyfw3481 [place] [address]Dr. Erasmo Smith NEUT # 13.4 103/ul Critically high 1.4-6.5 The [facility] Comment on above: Performed By: #### C BC ####[facility] Ggesyvuiyd15[address] [place] [address]Dr. Erasmo Smith Neutrophils/100 WBC (Bld) 77.9 % Critically high 43.0-75.0 The [facility] Comment on above: Performed By: #### C BC ####[facility] Uvogyxoxvr72[address] [place] [address]Dr. Erasmo Smith Platelet mean volume (Bld) [Entitic vol] 9.3 fL Critically low 9.5-13.5 The [facility] Comment on above: Performed By: #### C BC ####[facility] Zktccruygs4724 [place] [address]Dr. Erasmo Smith PLT 205 103/ul Normal 150-450 The [facility] Comment on above: Performed By: #### C BC ####[facility] Iyogsvdysi2378 [place] [address]Dr. Erasmo Smith RBC 3.69 106/ul Critically low 4.20-5.40 The [facility] Comment on above: Performed By: #### C BC ####[facility] Tyssjeegcm[address] [place], [place] [address]Dr. Erasmo Smith WBC 17.2 103/ul Critically high 4.0-11.0 The [facility] Comment on above: Performed By: #### C BC ####[facility] Lkryftantz[address] [place], [place] [address]Dr. Erasmo Smith MAGNESIUMon 12-03-2022 Magnesium [Mass/Vol] 1.9 mg/dL Normal 1.8-2.4 [facility] Comment on above: Performed By: #### B MAIL SORTER #### [facility] [address] [place] [address] Dr. Erasmo Simth PROF 14(COMP METB)on 023 Albumin [Mass/Vol] 2.6 g/dL Critically low 3.4-5.0 Th e [facility] Comment on above: Performed By: #### B MAIL SORTER #### [facility] [address] [place] [address] Dr. Erasmo Smith Albumin/Globulin [Mass ratio] 0.6 {ratio} Normal [facility] Comment on above: Performed By: #### B MAIL SORTER #### [facility] [address] [place] [address] Dr. Erasmo Smith ALP [Catalytic activity/Vol] 123 U/L Critically high 46-116 [facility] Comment on above: Performed By: #### B MAIL SORTER #### [facility] [address] [place] [address] Dr. Erasmo Smith ALT [Catalytic activity/Vol] 28 U/L Normal 14-59 [facility] Comment on above: Performed By: #### B MAIL SORTER #### [facility] [address] [place] [address] Dr. Erasmo Smith Anion gap [Moles/Vol] 9.4 mmol/L Normal [facility] Comment on above: Performed By: #### B MAIL SORTER #### [facility] [address] [place] [address] Dr. Erasmo Smith AST [Catalytic activity/Vol] 21 U/L Normal 15-37 [facility] Comment on above: Performed By: #### B MAIL SORTER #### [facility] [address] [place] [address] Dr. Erasmo Smith Bilirubin [Mass/Vol] 0.3 mg/dL Normal 0.2-1.0 [facility] Comment on above: Performed By: #### B MAIL SORTER #### [facility] [address] [place], [place] [address] Dr. Erasmo Smith Calcium [Mass/Vol] 8.3 mg/dL Critically low 8.5-10.1 Th [facility] Comment on above: Performed By: #### B MAIL SORTER #### [facility] [address] [place] [address] Dr. Erasmo Smith Chloride [Moles/Vol] 105 mmol/L Normal 98-107 [facility] Comment on above: Performed By: #### B MAIL SORTER #### [facility] [address] [place] [address] Dr. Erasmo Smith CO2 [Moles/Vol] 27.1 mmol/L Normal 21.0-32.0 [facility] Comment on above: Performed By: #### B MAIL SORTER #### [facility] [address] [place] [address] Dr. Erasmo Smith Creatinine [Mass/Vol] 0.55 mg/dL Normal 0.55-1.02 [facility] Comment on above: Performed By: #### B MAIL SORTER #### [facility] [address] [place] [address] Dr. Erasmo Smith EGFR-AF NIGERIAN >60 Normal >=60 [facility] Comment on above: Performed By: #### B MAIL SORTER #### [facility] [address] [place] [address] Dr. Erasmo Smith EGFR-NON AF NIGERIAN >60 Normal >=60 [facility] Comment on above: Performed By: #### B MAIL SORTER #### [facility] [address] [place] [address] Dr. Erasmo Smith Globulin (S) [Mass/Vol] 4.0 g/dL Normal [facility] Comment on above: Performed By: #### B MAIL SORTER #### [facility] [address] [place] [address] Dr. Erasmo Smith Glucose [Mass/Vol] 132 mg/dL Critically high 74-106 [facility] Comment on above: Performed By: #### B MAIL SORTER #### [facility] [address] [place] [address] Dr. Erasmo Smith Potassium [Moles/Vol] 3.5 mmol/L Normal 3.5-5.1 [facility] Comment on above: Performed By: #### B MAIL SORTER #### [facility] [address] [place] [address] Dr. Erasmo Smith Protein [Mass/Vol] 6.6 g/dL Normal 6.4-8.2 [facility] Comment on above: Performed By: #### B MAIL SORTER #### [facility] [address] [place] [address] Dr. Erasmo Smith Sodium [Moles/Vol] 138 mmol/L Normal 136-145 [facility] Comment on above: Performed By: #### B MAIL SORTER #### [facility] [address] [place] [address] Dr. Erasmo Smith Urea nitrogen [Mass/Vol] 24.0 mg/dL Critically high 7.0-18.0 [facility] Comment on above: Performed By: #### B MAIL SORTER #### [facility] [address] [place] [address] Dr. Erasmo Smith Urea nitrogen/Creatinine [Mass ratio] 43.6 mg/mg Normal [facility] Comment on above: Performed By: #### B MAIL SORTER #### [facility] [address] [place] [address] Dr. Erasmo Smith PROTIMEon 12-03-2022 INR Coag (PPP) [Relative time] 4.41 {INR} Critically high [facility] Comment on above: Performed By: #### C MREP #### [facility] [address] [place] [address] Dr. Erasmo Smith INR GUIDELINES SEE BELOW Normal The [facility] Comment on above: Result Comment: ABNER RED INR: 2.0 - 3.0 CONDITIONS NOT LISTED BELOW 2.5 - 3.5 FOR PROSTHETIC HEART VALVE REPLACEMENT 2.5 - 3.5 RECURRENT THROMBOSIS Performed By: #### C MREP #### [facility] [address] [place] [address] Dr. Erasmo Smith PT Coag (PPP) [Time] 43.0 s Critically high 9.0-11.6 [facility] Comment on above: Performed By: #### C MREP #### [facility] [address] [place] [address] [address] Erasmo Smith BLOOD CULTURE ID PANELon A. baumannii Not detected Normal NOT DETECTED The [facility] Comment on above: Performed By: #### B CID2 ####[facility] Uquzcbxoae35[address] [place] [id number]. Yiean Smith Bacteriodes fragilis Not detected Normal NOT DETECTED The [facility] Comment on above: Performed By: #### B CID2 ####[facility] Vrtfqptzlc[address] [place] [address]Dr. Yiean Luis BCID CONTROLS PASSED Normal The [facility] Comment on above: Performed By: #### B CID2 ####[facility] Mtyipvvfqb[address] [place] [address]Dr. Erasmo Smith BCIDBTHD BLOOD CULTURE BOTTLE INFORMATION Normal The [facility] Comment on above: Performed By: #### B CID2 ####[facility] Zdhtbqlfae[address] [place] [address]Dr. Erasmo Luis BCIDHD1 ANTIMICROBIAL RESISTANCE GENES Normal The [facility] Comment on above: Performed By: #### B CID2 ####[facility] Snugilocty[address] [place] [address]Dr. Erasmo Luis BCIDHD2 SEE BELOW Normal The [facility] Comment on above: Result Comment: Note : Antimicrobial resitance can occur via multiple mechanisms. A Not Detected result for the [employer] antomicrobial resistance gene assays does not indicate antimicrobial susceptibility. Subculturing is required for species identification and susceptibility testing of isolates. Performed By: #### B CID2 ####[facility] Pwibgjdhlp[address] [place] [id number]. Erasmo Smith BCIDHD3 Positive Normal The [facility] Comment on above: Performed By: #### B CID2 ####[facility] Fgokvwkzcv65[address] [place] [address]Dr. Erasmo Smith BCIDHD4 Negative Normal The [facility] Comment on above: Performed By: #### B CID2 ####[facility] Rslqozyium[address] [place] [address]Dr. Erasmo Smith BCIDHD5 YEAST Normal The [facility] Comment on above: Performed By: #### B CID2 ####[facility] Cstxrzqtsk[address] [place] [address]Dr. Erasmo Smith Bottle Set: Set 1 Normal The [facility] Comment on above: Performed By: #### B CID2 ####[facility] Edgqcybeft[address] [place] [address]Dr. Erasmo Smith Bottle: Anaerobic Normal The [facility] Comment on above: Performed By: #### B CID2 ####[facility] Jrfqbenwlc[address] [place] [address]Dr. Yiean Smith C. neoformans/gattii Not detected Normal NOT DETECTED The [facility] Comment on above: Performed By: #### B CID2 ####[facility] Qfmidfxwaz[address] [place], [place] [address]Dr. Yiean Smith Naye albicans Not detected Normal NOT DETECTED The [facility] Comment on above: Performed By: #### B CID2 ####[facility] Uzvyvtnakg[address] [place], [place] [address]Dr. Yiean Smith Naye auris Not detected Normal NOT DETECTED The [facility] Comment on above: Performed By: #### B CID2 ####[facility] Amgpueoopu[address] [place], [place] [address]Dr. Yiean Smith Naye glabrata Not detected Normal NOT DETECTED The [facility] Comment on above: Performed By: #### B CID2 ####[facility] Uebupjvejt[address] [place] [address]Dr. Yiean Smith Naye Krusei Not detected Normal NOT DETECTED The [facility] Comment on above: Performed By: #### B CID2 ####[facility] Imqpkvujpi224[address] [place] [address]Dr. Yilan Smith Naye Parapsilosis Not detected Normal NOT DETECTED The [facility] Comment on above: Performed By: #### B CID2 ####[facility] Dhgisvsduq7[address] [place] [address]Dr. Yilan Smith Naye Tropicalis Not detected Normal NOT DETECTED [facility] Comment on above: Performed By: #### B CID2 ####[facility] Breokztfky[address] [place] [address]Dr. Erasmo Smith CTX-M Resistant Gene Not Applicable Normal NOT DETECTE D The [facility] Comment on above: Performed By: #### B CID2 ####[facility] Srjweiuwyf[address] [place], [place] [address]Dr. Erasmo Smith E. Cloacae complex Not detected Normal NOT DETECTED [facility] Comment on above: Performed By: #### B CID2 ####[facility] Sgokveurez[address] [place], [place] [address]Dr. Erasmo Smith E. faecalis Not detected Normal NOT DETECTED The [facility] Comment on above: Performed By: #### B CID2 ####[facility] Oewbczannb[address] [place], [place] [address]Dr. Erasmo Smith E. faecium Not detected Normal NOT DETECTED The [facility] Comment on above: Performed By: #### B CID2 ####[facility] Mnwdutczyd[address] [place], [place] [address]Dr. Erasmo Smith Enterobacteriaceae Detected Critically abnormal NOT DETECTED The [facility] Comment on above: Performed By: #### B CID2 ####[facility] Rdnismefuf[address] [place], [place] [address]Dr. Erasmo Smith Escherichia coli Detected Critically abnormal NOT DETECTED The [facility] Comment on above: Performed By: #### B CID2 ####[facility] Idkmhiwcrc[address] [place], [place] [address]Dr. Erasmo Smith H. influenzae Not detected Normal NOT DETECTED The [facility] Comment on above: Performed By: #### B CID2 ####[facility] Rilfdxtzso[address] [place], [place] [address]Dr. Erasmo Smith IMP Resistant Gene Not Applicable Normal NOT DETECTED The [facility] Comment on above: Performed By: #### B CID2 ####[facility] Mntebvtrym[address] [place], [place] [address]Dr. Erasmo Smith K. oxytoca Not detected Normal NOT DETECTED The [facility] Comment on above: Performed By: #### B CID2 ####[facility] Roigesajbs[address] [place], [place] [address]Dr. Erasmo Smith K. pneumoniae Not detected Normal NOT DETECTED The [facility] Comment on above: Performed By: #### B CID2 ####[facility] Cpawmckhwb[address] [place], [place] [address]Dr. Erasmo Smith Klebsiella aerogenes Not detected Normal NOT DETECTED The [facility] Comment on above: Performed By: #### B CID2 ####[facility] Dghcjeaxhe[address] [place], [place] [address]Dr. Erasmo Smith KPC Resistant Gene Not detected Normal NOT DETECTED [facility] Comment on above: Performed By: #### B CID2 ####[facility] Jltrwifjon[address] [place], [place] [address]Dr. Erasmo Smith List. monocytogenes Not detected Normal NOT DETECTED [facility] Comment on above: Performed By: #### B CID2 ####[facility] Dtctbwekma[address] [place], [place] [address]Dr. Erasmo Smith Mcr-1 Resistant Gene Not Applicable Normal NOT DETECTE D [facility] Comment on above: Performed By: #### B CID2 ####[facility] Reiabuxbfv[address] [place], [place] [address]Dr. Erasmo Smith mecA/C Not Applicable Normal NOT DETECTED The [facility] Comment on above: Performed By: #### B CID2 ####[facility] Tftpfbhjrg[address] [place], [place] [address]Dr. Erasmo Smith mecA/C MREJ Not Applicable Normal NOT DETECTED The [facility] Comment on above: Performed By: #### B CID2 ####[facility] Whniykjjvc[address] [place], [place] [address]Dr. Erasmo Smith N. meningitidis Not detected Normal NOT DETECTED The [facility] Comment on above: Performed By: #### B CID2 ####[facility] Mrtjjuqkva[address] [place], [place] [address]Dr. Erasmo Smith NDM Resistant Gene Not Applicable Normal NOT DETECTED The [facility] Comment on above: Performed By: #### B CID2 ####[facility] Igcwnemsuh[address] [place], [place] [address]Dr. Erasmo Smith Oxa-48-like Not Applicable Normal NOT DETECTED The [facility] Comment on above: Performed By: #### B CID2 ####[facility] Ouhckoufpj[address] [place], [place] [address]Dr. Erasmo Smith Proteus Not detected Normal NOT DETECTED The [facility] Comment on above: Performed By: #### B CID2 ####[facility] Qgheibvbxn[address] [place], [place] [address]Dr. Erasmo Smith Pseud. aeruginosa Not detected Normal NOT DETECTED The [facility] Comment on above: Performed By: #### B CID2 ####[facility] Tsiooylsvi[address] [place], [place] [address]Dr. Erasmo Smith S. maltophilia Not detected Normal NOT DETECTED The [facility] Comment on above: Performed By: #### B CID2 ####[facility] Abiteynrbw582[address] [place], [place] [address]Dr. Erasmo Smith Salmonella Not detected Normal NOT DETECTED The [facility] Comment on above: Performed By: #### B CID2 ####[facility] Ivhrmbnadr37[address] [place], [place] [address]Dr. Erasmo Smith Seratia marcescens Not detected Normal NOT DETECTED [facility] Comment on above: Performed By: #### B CID2 ####[facility] Qbrlchbqqn[address] [place], [place] [address]Dr. Erasmo Smith Site: l ac Normal The [facility] Comment on above: Performed By: #### B CID2 ####[facility] Jaxgcjhrls[address] [place], [place] [address]Dr. Erasmo Smith Staph. aureus Not detected Normal NOT DETECTED The [facility] Comment on above: Performed By: #### B CID2 ####[facility] Ifjhcaouwu69[address] [place], [place] [address]Dr. Erasmo Smith Staph. epidermidis Not detected Normal NOT DETECTED [facility] Comment on above: Performed By: #### B CID2 ####[facility] Flxsxosbbf6815[address] [place], [place] [address]Dr. Erasmo Smith Staph. lugdunensis Not detected Normal NOT DETECTED [facility] Comment on above: Performed By: #### B CID2 ####[facility] Lcl[address]lqguq[address] [place] [address]Dr. Erasmo Smith Staphylococcus Not detected Normal NOT DETECTED The [facility] Comment on above: Performed By: #### B CID2 ####[facility] Btshgsennx5[address] [place] [address]Dr. Erasmo Smith Strep. agalactiae Not detected Normal NOT DETECTED The [facility] Comment on above: Performed By: #### B CID2 ####[facility] Wxezgmftxn39[address] [place] [address]Dr. Erasmo Smith Strep. pneumoniae Not detected Normal NOT DETECTED The [facility] Comment on above: Performed By: #### B CID2 ####[facility] Tqkqocgyrc16[address] [place], [place] [address]Dr. Erasmo Smith Strep. pyogenes Not detected Normal NOT DETECTED The [facility] Comment on above: Performed By: #### B CID2 ####[facility] Tcqdieiccl192[address] [place], [place] [address]Dr. Erasmo Smith Streptococcus Not detected Normal NOT DETECTED The [facility] Comment on above: Performed By: #### B CID2 ####[facility] Msnlhmcwwb9[address] [place], [place] [address]Dr. Erasmo Smith Fran/B Resist. Gene Not detected Normal NOT DETECTED [facility] Comment on above: Performed By: #### B CID2 ####[facility] Bawwaflevc9[address] [place], [place] [address]Dr. Erasmo Smith VIM Resistant Gene Not Applicable Normal NOT DETECTED The [facility] Comment on above: Performed By: #### B CID2 ####[facility] Mveguolizk50[address] [place], [place] [address]Dr. Erasmo Smith BNPon 12-02-2022 Natriuretic peptide B (Bld) [Mass/Vol] 1059.0 pg/mL Normal <=1,800.0 The [facility] Comment on above: Performed By: #### B MAIL SORTER #### [facility] [address] [address] [address] Erasmo Smith CBC AUTO DIFFon 12-02-2022 BASO # 0.0 103/ul Normal 0.0-0.1 The [facility] Comment on above: Performed By: #### C BC ####[facility] Ufqsxhtywj10[address] [place] [address]DrMeena Smith Basophils/100 WBC (Bld) 0.2 % Normal 0.2-2.0 The [facility] Comment on above: Performed By: #### C BC ####[facility] Vxaumpglfw70[address] [place] [address]DrMeena Smith EO # 0.0 103/ul Normal 0.0-0.7 The [facility] Comment on above: Performed By: #### C BC ####[facility] Yynuenmhxt[address] [place], [place] [address]DrMeena Smith Eosinophils/100 WBC (Bld) 0.0 % Critically low 0.9-7.0 [facility] Comment on above: Performed By: #### C BC ####[facility] Drilsoxnwe[address] [place], [place] [address]Dr. Erasmo Smith Erythrocyte distribution width (RBC) [Ratio] 17.3 % Critically high 11.0-15.0 [facility] Comment on above: Performed By: #### C BC ####[facility] Gecpiwuvzt[address] [place], [place] [address]DrMeena Smith Hematocrit (Bld) [Volume fraction] 31.4 % Critically low 36.0-48.0 [facility] Comment on above: Performed By: #### C BC ####[facility] Zdqjjztvwe[address] [place], [place] [address]Dr. Erasmo Smith Hemoglobin (Bld) [Mass/Vol] 10.0 g/dL Critically low 12.0-16.0 The [facility] Comment on above: Performed By: #### C BC ####[facility] Mgyvkermak[address] [place] [address]DrMeena Smith IG # 0.06 10e3/ul Critically high 0.00-0.03 [facility] Comment on above: Performed By: #### C BC ####[facility] Zwsbzuboyn10[address] [place] [id number]. Erasmo Smith IG % 0.4 % Normal 0.0-0.5 The [facility] Comment on above: Performed By: #### C BC ####[facility] Edxhfivwtr68[address] [place] [address]Dr. Erasmo Smith LYMPH # 1.3 103/ul Normal 1.2-3.8 The [facility] Comment on above: Performed By: #### C BC ####[facility] Gfwatvfdsw8511 [place] [id number]. Erasmo Luis Lymphocytes/100 WBC (Bld) 8.1 % Critically low 20.5-60.0 The [facility] Comment on above: Performed By: #### C BC ####[facility] Rhifwpnuel[address] [place] [address]Dr. Erasmo Luis MANUAL DIFF REQ NO Normal The [facility] Comment on above: Performed By: #### C BC ####[facility] Fvdanegoct9874 [place] [id number]. Erasmo Smith MCH (RBC) [Entitic mass] 25.6 pg Critically low 26.7-34.0 The [facility] Comment on above: Performed By: #### C BC ####[facility] Innustniht[address] [place] [address]Dr. Erasmo Smith MCHC (RBC) [Mass/Vol] 31.8 g/dL Normal 29.9-35.2 The [facility] Comment on above: Performed By: #### C BC ####[facility] Lpsdvkmgtq9312 [place] [id number]. Erasmo Smith MCV (RBC) [Entitic vol] 80.3 fL Critically low 81.0-99.0 The [facility] Comment on above: Performed By: #### C BC ####[facility] Wtgaahcilc[address] [place], [place] [address]Dr. Erasmo Luis MONO # 0.6 103/ul Normal 0.3-0.8 The [facility] Comment on above: Performed By: #### C BC ####[facility] Ahfiuyiidu6813 [place] [id number]. Erasmo Smith Monocytes/100 WBC (Bld) 3.7 % Normal 1.7-12.0 The [facility] Comment on above: Performed By: #### C BC ####[facility] Frbgakdoyj5360 [place] [id number]. Erasmo Smith NEUT # 14.5 103/ul Critically high 1.4-6.5 The [facility] Comment on above: Performed By: #### C BC ####[facility] Ootvfkmnhh5[address] [place] [address]Dr. Erasmo Smith Neutrophils/100 WBC (Bld) 87.6 % Critically high 43.0-75.0 The [facility] Comment on above: Performed By: #### C BC ####[facility] Mwokqenrgg[address] [place] [address]Dr. Erasmo Smith Platelet mean volume (Bld) [Entitic vol] 10.0 fL Normal 9.5-13.5 The [facility] Comment on above: Performed By: #### C BC ####[facility] Cjmwrnelug6052 [place] [id number]. Erasmo Smith PLT 206 103/ul Normal 150-450 The [facility] Comment on above: Performed By: #### C BC ####[facility] Lfjtbtvgdl1243 [place] [id number]. rEasmo Smith RBC 3.91 106/ul Critically low 4.20-5.40 The [facility] Comment on above: Performed By: #### C BC ####[facility] Llvlqonfkl8911 [place] [id number]. Erasmo Smith WBC 16.5 103/ul Critically high 4.0-11.0 The [facility] Comment on above: Performed By: #### C BC ####[facility] Aogy[address] [place], [place] [address]Dr. Erasmo Smith ECHOCARDIO M/2D COMPLETEon 0 12-02-2022 ECHOCARDIO M/2D COMPLETE Patient: BREANN STARKS Exam Date: 12/02/2022 : 1945 Gender:F Ordering : KAYLEY HOLMAN . Admission #: [id number] Family : DR LIEBERMAN Reyna JOHNSON . Order #: [id number] CLICK HERE TO VIEW EXAM ECHOCARDIOGRAM REPORT [...] Pressure: 49.76 ml, 49.76 ml Dictated by: Sakina Salazar M.D. on 12/02/2022 at 21:54 Approved by: Sakina Salazar M.D. on 12/02/2022 at 21:58 Normal [facility] MAGNESIUMon 12-02-2022 Magnesium [Mass/Vol] 2.0 mg/dL Normal 1.8-2.4 [facility] Comment on above: Performed By: #### B MAIL SORTER #### [facility] [address] [place] [address] Dr. Erasmo Smith PROF 14(COMP METB)on 023 Albumin [Mass/Vol] 2.7 g/dL Critically low 3.4-5.0 [facility] Comment on above: Performed By: #### B MAIL SORTER #### [facility] [address] [address] [address] Erasmo Smith Albumin/Globulin [Mass ratio] 0.6 {ratio} Normal [facility] Comment on above: Performed By: #### B MAIL SORTER #### [facility] [address] [place] [address] Dr. Erasmo Smith ALP [Catalytic activity/Vol] 128 U/L Critically high 46-116 [facility] Comment on above: Performed By: #### B MAIL SORTER #### [facility] [address] [address] [address] Erasmo Smith ALT [Catalytic activity/Vol] 34 U/L Normal 14-59 [facility] Comment on above: Performed By: #### B MAIL SORTER #### [facility] [address] [place] [address] Dr. Erasmo Smith Anion gap [Moles/Vol] 10.6 mmol/L Normal [facility] Comment on above: Performed By: #### B MAIL SORTER #### [facility] [address] [place] [address] Dr. Erasmo Smith AST [Catalytic activity/Vol] 27 U/L Normal 15-37 [facility] Comment on above: Performed By: #### B MAIL SORTER #### [facility] [address] [place] [address] Dr. Erasmo Smith Bilirubin [Mass/Vol] 0.5 mg/dL Normal 0.2-1.0 [facility] Comment on above: Performed By: #### B MAIL SORTER #### [facility] [address] [place] [address] Dr. Erasmo Smith Calcium [Mass/Vol] 8.4 mg/dL Critically low 8.5-10.1 [facility] Comment on above: Performed By: #### B MAIL SORTER #### [facility] [address] [place] [address] Dr. Erasmo Smith Chloride [Moles/Vol] 104 mmol/L Normal 98-107 [facility] Comment on above: Performed By: #### B MAIL SORTER #### [facility] [address] [place] [address] Dr. Erasmo Smith CO2 [Moles/Vol] 26.2 mmol/L Normal 21.0-32.0 [facility] Comment on above: Performed By: #### B MAIL SORTER #### [facility] [address] [place] [address] Dr. Erasmo Smith Creatinine [Mass/Vol] 0.52 mg/dL Critically low 0.55-1.02 [facility] Comment on above: Performed By: #### B MAIL SORTER #### [facility] [address] [place] [address] Dr. Erasmo Smith EGFR-AF NIGERIAN >60 Normal >=60 [facility] Comment on above: Performed By: #### B MAIL SORTER #### [facility] [address] [address] [address] Erasmo Smith EGFR-NON AF NIGERIAN >60 Normal >=60 [facility] Comment on above: Performed By: #### B MAIL SORTER #### [facility] [address] [address] [address] Erasmo Smith Globulin (S) [Mass/Vol] 4.3 g/dL Normal [facility] Comment on above: Performed By: #### B MAIL SORTER #### [facility] [address] [address] [address] Erasmo Smith Glucose [Mass/Vol] 135 mg/dL Critically high 74-106 [facility] Comment on above: Performed By: #### B MAIL SORTER #### [facility] [address] [place] [address] Dr. Erasmo Smith Potassium [Moles/Vol] 3.8 mmol/L Normal 3.5-5.1 [facility] Comment on above: Performed By: #### B MAIL SORTER #### [facility] [address] [place] [address] Dr. Erasmo Smith Protein [Mass/Vol] 7.0 g/dL Normal 6.4-8.2 [facility] Comment on above: Performed By: #### B MAIL SORTER #### [facility] [address] [place] [address] Dr. Erasmo Smith Sodium [Moles/Vol] 137 mmol/L Normal 136-145 The [facility] Comment on above: Performed By: #### B MAIL SORTER #### [facility] [address] [address] [address] Erasmo Smith Urea nitrogen [Mass/Vol] 16.0 mg/dL Normal 7.0-18.0 [facility] Comment on above: Performed By: #### B MAIL SORTER #### [facility] [address] [place] [address] Dr. Erasmo Smith Urea nitrogen/Creatinine [Mass ratio] 30.8 mg/mg Normal [facility] Comment on above: Performed By: #### B MAIL SORTER #### [facility] [address] [address] [address] Erasmo Smith PROTIMEon 12-02-2022 INR Coag (PPP) [Relative time] 4.39 {INR} Critically high [facility] Comment on above: Performed By: #### P T #### [facility] [address] [address] [address] Erasmo Smith INR GUIDELINES SEE BELOW Normal The [facility] Comment on above: Result Comment: ABNER RED INR: 2.0 - 3.0 CONDITIONS NOT LISTED BELOW 2.5 - 3.5 FOR PROSTHETIC HEART VALVE REPLACEMENT 2.5 - 3.5 RECURRENT THROMBOSIS Performed By: #### P T #### [facility] [address] [address] [address] Erasmo Smith PT Coag (PPP) [Time] 42.8 s Critically high 9.0-11.6 [facility] Comment on above: Performed By: #### P T #### [facility] [address] [address] [address] Erasmo Smith UA RANDOM W/MICROSCOPICon BACTERIA NONE SEEN Normal NONE SEEN [facility] Comment on above: Performed By: #### U AMIC ####[facility] [address] [place] [address]DrMeena Smith Bilirubin Ql (U) Negative Normal NEGATIVE The [facility] Comment on above: Performed By: #### U AMIC ####[facility] [address] [place] [address]Dr. Erasmo Smith CAST NONE SEEN Normal NONE SEEN The [facility] Comment on above: Performed By: #### U AMIC ####[facility] [address]guhbs[address] [place] [address]DrMeena Smith Clarity (U) CLEAR Normal CLEAR The [facility] Comment on above: Performed By: #### U AMIC ####[facility] X[address]mo[address] [place] [address]DrMeena Smith Color (U) YELLOW Normal YELLOW The [facility] Comment on above: Performed By: #### U AMIC ####[facility] Ftfgtgrprf[address] [place] [address]Dr. Erasmo Smith Crystals LM Nom (Urine sed) NONE SEEN Normal NONE SEEN The [facility] Comment on above: Performed By: #### U AMIC ####[facility] F[address]hapsleey[address] [place] [address]Dr. Erasmo Smith Epithelial cells LM Ql (Urine sed) RARE Normal NONE SEEN /RARE The [facility] Comment on above: Performed By: #### U AMIC ####[facility] Uwhgxugywn[address] [place] [address]Dr. Erasmo Smith Glucose Ql (U) Negative Normal NEGATIVE The [facility] Comment on above: Performed By: #### U AMIC ####[facility] [address]kybppzhx[address] [place] [address]Dr. Erasmo Smith Hemoglobin Ql (U) SMALL Abnormal NEGATIVE The [facility] Comment on above: Performed By: #### U AMIC ####[facility] [address]okxpypwfj[address] [place], [place] [address]Dr. Erasmo Smith Ketones Ql (U) 15 mg/dl Abnormal NEGATIVE The [facility] Comment on above: Performed By: #### U AMIC ####[facility] Ipdkbmwtvu[address] [place], [place] [address]Dr. Erasmo Smith LEUKOCYTES Negative Normal NEGATIVE The [facility] Comment on above: Performed By: #### U AMIC ####[facility] J[address]cvdffaa[address] [place] [address]Dr. Erasmo Smith MUCOUS NONE SEEN Normal NONE SEEN The [facility] Comment on above: Performed By: #### U AMIC ####[facility] Vhkgtbretv[address] [place] [address]Dr. Erasmo Smith Nitrite Ql (U) Negative Normal NEGATIVE The [facility] Comment on above: Performed By: #### U AMIC ####[facility] Fppysimdtb[address] [place] [address]Dr. Erasmo Smith pH (U) 6.0 [pH] Normal 5-9 The [facility] Comment on above: Performed By: #### U AMIC ####[facility] Nowrmrhwqk[address] [place] [id number]. Erasmo Smith RBC 0-2 Normal 0-2 The [facility] Comment on above: Performed By: #### U AMIC ####[facility] A[address]ivchfai[address] [place] [id number]. Erasmo Smith SPEC GRAVITY 1.025 Normal 1.005-<=1.02 5 The [facility] Comment on above: Performed By: #### U AMIC ####[facility] H[address]otsqnv[address] [place] [address]Dr. Erasmo Smith UA PROTEIN TRACE Normal NEGATIVE/ TRACE The [facility] Comment on above: Performed By: #### U AMIC ####[facility] Nju[address]aiijd[address] [place] [address]Dr. Erasmo Smith Urobilinogen Qn (U) 4 {Shraddha'U}/dL Abnormal 0.2 - 1.0 The [facility] Comment on above: Performed By: #### U AMIC ####[facility] Jrarlqmgky[address] [place] [address]Dr. Erasmo Smith WBC 0-2 Abnormal NONE SEEN The [facility] Comment on above: Performed By: #### U AMIC ####[facility] Otfgeoqkjp[address] [place] [address]Dr. Erasmo Smith CARDIAC ROSA ELENA 3-6on 3 CK [Catalytic activity/Vol] 53 U/L Normal 26-192 The [facility] Comment on above: Performed By: #### C MREP #### [facility] [address] [address] [address] Erasmo Smith CK.MB [Mass/Vol] 0.90 ng/mL Normal <=3.60 The [facility] Comment on above: Performed By: #### C MREP #### [facility] [address] [address] [address] Erasmo Smith HSTROP 116.7 pg/mL Critically high 4.0-51.3 The [facility] Comment on above: Result Comment: CUT- OFF POINTS HAVE BEEN ESTABLISHED BASED ON THE FOURTH UNIVERSAL DEFINITIONS OF MYOCARDIAL INFARCTION. THE UPPER REFERENCE LIMIT (URL) OF TROPONIN, DEFINED THE 99TH PERCENTILE OF cTnI DISTRIBUTION IN A REFERENCE POPULATION, HAS BEEN CONFIRMED THE DECISION THRESHOLD FOR HI DIAGNOSIS. Performed By: #### C MREP #### [facility] [address] [place] [address] Dr. Erasmo Smith CK [Catalytic activity/Vol] 47 U/L Normal 26-192 The [facility] Comment on above: Performed By: #### B MAIL SORTER #### [facility] [address] [place] [address] Dr. Erasmo Smith CK.MB [Mass/Vol] 1.00 ng/mL Normal <=3.60 [facility] Comment on above: Performed By: #### B MAIL SORTER #### [facility] [address] [place] [address] Dr. Erasmo Smith HSTROP 154.3 pg/mL Critically high 4.0-51.3 [facility] Comment on above: Result Comment: CUT- OFF POINTS HAVE BEEN ESTABLISHED BASED ON THE FOURTH UNIVERSAL DEFINITIONS OF MYOCARDIAL INFARCTION. THE UPPER REFERENCE LIMIT (URL) OF TROPONIN, DEFINED THE 99TH PERCENTILE OF cTnI DISTRIBUTION IN A REFERENCE POPULATION, HAS BEEN CONFIRMED THE DECISION THRESHOLD FOR HI DIAGNOSIS. Performed By: #### B MAIL SORTER #### [facility] [address] [place] [address] Dr. Erasmo Smith CBC W MANUAL DIFFon 12-02-19 23 ATYPICAL LYMPH # Normal [facility] Comment on above: Performed By: #### C ANGELA #### [facility] [address] [place] [address] Dr. Erasmo Smith ATYPICAL LYMPH % Normal [facility] Comment on above: Performed By: #### C ANGELA #### [facility] [address] [place] [address] Dr. Erasmo Smith BAND # 0.6 103/ul Critically high 0.0-0.3 The [facility] Comment on above: Performed By: #### C ANGELA #### [facility] [address] [place] [address] Dr. Erasmo Smith BAND % 3 % Normal 0-5 The [facility] Comment on above: Performed By: #### C ALHAJIBLAISE #### [facility] [address] [place] [address] Dr. Erasmo Smith BASOM # 0.00 103/ul Normal 0.00-0.10 [facility] Comment on above: Performed By: #### C BCMAN #### [facility] [address] [place] [address] Dr. Erasmo Smith BASOM % 0.0 % Critically low 0.2-2.0 [facility] Comment on above: Performed By: #### C BCMAN #### [facility] [address] [place] [address] Dr. Erasmo Smith BLAST # Normal [facility] Comment on above: Performed By: #### C BCBLAISE #### [facility] [address] [place] [address] Dr. Erasmo Smith BLAST % Normal [facility] Comment on above: Performed By: #### C BCBLAISE #### [facility] [address] [place] [address] Dr. Erasmo Smith CORRECTED WBC Normal 4.0-11.0 [facility] Comment on above: Performed By: #### C BCBLAISE #### [facility] [address] [place] [address] Dr. Erasmo Smith EOS # 0.19 103/ul Normal 0.00-0.70 [facility] Comment on above: Performed By: #### C ANGELA #### [facility] [address] [place] [address] Dr. Erasmo Smith EOS% 1.0 % Normal 0.9-7.0 [facility] Comment on above: Performed By: #### C BCBLAISE #### [facility] [address] [place] [address] Dr. Erasmo Smith HCT 32.7 % Critically low 36.0-48.0 [facility] Comment on above: Performed By: #### C BCBLAISE #### [facility] [facility] [address] [place] [address] Dr. Erasmo Smith HGB 10.5 g/dl Critically low 12.0-16.0 [facility] Comment on above: Performed By: #### C ANGELA #### [facility] [address] [address] [address] Erasmo Smith LYMPHM # 0.76 103/ul Critically low 1.20-3.80 [facility] Comment on above: Performed By: #### C ANGELA #### [facility] [address] [address] [address] Erasmo Smith LYMPHM% 4.0 % Critically low 20.5-60.0 [facility] Comment on above: Performed By: #### C ANGELA #### [facility] [address] [address] [address] Erasmo Smith MCH 25.9 pg Critically low 26.7-34.0 [facility] Comment on above: Performed By: #### C ANGELA #### [facility] [address] [address] [address] Erasmo Smith MCHC 32.1 g/dl Normal 29.9-35.2 [facility] Comment on above: Performed By: #### C ANGELA #### [facility] [address] [address] [address] Erasmo Smith MCV 80.5 fL Critically low 81.0-99.0 [facility] Comment on above: Performed By: #### C ANGELA #### [facility] [address] [address] [address] Erasmo Smith METAMYELOCYTE # Normal [facility] Comment on above: Performed By: #### C ANGELA #### [facility] [address] [address] [address] Erasmo Smith METAMYELOCYTE % Normal [facility] [place] [facility] Comment on above: Performed By: #### C ANGELA #### [facility] [address] [address] [address] Erasmo Smith MONOM# 1.14 103/ul Critically high 0.30-0.80 [facility] Comment on above: Performed By: #### C ANGELA #### [facility] [address] [address] [address] Erasmo Smith MONOM% 6.0 % Normal 1.7-12.0 [facility] Comment on above: Performed By: #### C ALHAJIMAN #### [facility] [address] [address] [address] Erasmo Smith MPV 9.4 fL Critically low 9.5-13.5 [facility] Comment on above: Performed By: #### C ANGELA #### [facility] [address] [address] [address] Erasmo Smith MYELOCYTE # Normal [facility] Comment on above: Performed By: #### C ANGELA #### [facility] [address] [address] [address] Erasmo Smith MYELOCYTE % Normal [facility] Comment on above: Performed By: #### C ANGELA #### [facility] [address] [place] [address] Dr. Erasmo Smith NRBC Normal [facility] Comment on above: Performed By: #### C ANGELA #### [facility] [address] [place] [address] Dr. Erasmo Smith PLT 195 103/ul Normal 150-450 [facility] Comment on above: Performed By: #### C ANGELA #### [facility] [address] [place] [address] Dr. Erasmo Smith RBC 4.06 106/ul Critically low 4.20-5.40 [facility] Comment on above: Performed By: #### C ANGELA #### [facility] [address] [place] [address] Dr. Erasmo Smith RDW 17.7 % Critically high 11.0-15.0 [facility] [place] [facility] Comment on above: Performed By: #### C ANGELA #### [facility] [address] [place] [address] Dr. Erasmo Smith SEG # 16.34 103/ul Critically high 1.40-6.50 [facility] Comment on above: Performed By: #### C ANGELA #### [facility] [address] [place] [address] Dr. Erasmo Smith SEG % 86.0 % Critically high 43.0-75.0 [facility] [place] [facility] Comment on above: Performed By: #### Yamile MILLER #### [facility] [address] [place], [place] [address] Dr. Erasmo Smith WBC 19.0 103/ul Critically high 4.0-11.0 [facility] Comment on above: Performed By: #### Yamile MILLER #### [facility] [address] [place], [place] [address] HEAD WO CONon [...] SALOME MCCORMICK Date: 2022 14:50 Normal [facility] CULTURE BLOODon 2022 Microscopic examination of blood, culture Culture Observations: Aerobic and Anaerobic bottle positive. BCID: E. Coli Culture Observations: Refer to for VIOLET. Isolate 1 Escherichia coli Growth of Normal [facility] Comment on above: Performed By: #### B LDCX2 ####[facility] [address] [place], [place] [address]AbDr. Erasmo Smith Covid-19 PCR (CVDTB)on 11-11 SARS-CoV-2 (COVID-19) RNA EMILY+probe Ql (Unsp spec) Not detected Normal NOT DETECTED [facility] Comment on above: Result Comment: When diagnostic [...] for this test is supported by the [place] of Health and Human Service's declaration that [...] used). Performed By: #### C MREP #### [facility] [address] [address] [address] Erasmo Smith LACTATE/LACTIC ACIDon 2022 Lactate [Moles/Vol] 1.2 mmol/L Normal 0.4-2.0 [facility] Comment on above: Performed By: #### L ACT ####[facility] [address] [address]Dr. Erasmo Smith PH VENOUS BLOODon 2022 PCO2 VENOUS 37.8 mmHg Critically low 40.0-52.0 [facility] Comment on above: Performed By: #### P HVEN ####[facility] [address] [id number] Smith pH VENOUS 7.417 Normal 7.330-7.430 [facility] Comment on above: Performed By: #### P HVEN ####[facility] [address] [id number]. Erasmo Smith PROF 14(COMP METB)on 023 Albumin [Mass/Vol] 3.1 g/dL Critically low 3.4-5.0 [facility] Comment on above: Performed By: #### H ALEXSANDER, CMP ####[facility] [address] [id number] Smith Albumin/Globulin [Mass ratio] 0.8 {ratio} Normal [facility] Comment on above: Performed By: #### H STROPN, CMP ####[facility] [address] [address]Dr. Erasmo Smith ALP [Catalytic activity/Vol] 194 U/L Critically high 46-116 [facility] Comment on above: Performed By: #### H STROPN, CMP ####[facility] [address] [address]Dr. Erasmo Smith ALT [Catalytic activity/Vol] 37 U/L Normal 14-59 [facility] Comment on above: Performed By: #### H STROPN, CMP ####[facility] [address] [address]Dr. Erasmo Smith Anion gap [Moles/Vol] 14.6 mmol/L Normal Th e [facility] Comment on above: Performed By: #### H STROLYNDA, CMP ####[facility] [address] [place], [place] [address]Dr. Erasmo Smith AST [Catalytic activity/Vol] 32 U/L Normal 15-37 [facility] Comment on above: Performed By: #### H STROLYNDA, CMP ####[facility] [address] [place], [place] [address]Dr. Erasmo Smith Bilirubin [Mass/Vol] 1.0 mg/dL Normal 0.2-1.0 [facility] Comment on above: Performed By: #### H STROLYNDA, CMP ####[facility] [address] [place], [place] [address]Dr. Erasmo Smith Calcium [Mass/Vol] 8.9 mg/dL Normal 8.5-10.1 [facility] Comment on above: Performed By: #### H STROPN, CMP ####[facility] [address] [address]Dr. Erasmo Luis Chloride [Moles/Vol] 103 mmol/L Normal 98-107 [facility] Comment on above: Performed By: #### H STROPN, CMP ####[facility] [address] [address]Dr. Erasmo Smith CO2 [Moles/Vol] 23.6 mmol/L Normal 21.0-32.0 [facility] Comment on above: Performed By: #### H STROPN, CMP ####[facility] [address] [address]Dr. Erasmo Smith Creatinine [Mass/Vol] 0.69 mg/dL Normal 0.55-1.02 [facility] Comment on above: Performed By: #### H STROPN, CMP ####[facility] [address] [id number]. Erasmo Smith EGFR-AF NIGERIAN >60 Normal >=60 [facility] Comment on above: Performed By: #### H STROPN, CMP ####[facility] [address] [address]Dr. Erasmo Smith EGFR-NON AF NIGERIAN >60 Normal >=60 [facility] Comment on above: Performed By: #### H STROPN, CMP ####[facility] [address] [address]Dr. Erasmo Smith Globulin (S) [Mass/Vol] 4.1 g/dL Normal [facility] Comment on above: Performed By: #### H STROPN, CMP ####[facility] [address] [address]Dr. Erasmo Smith Glucose [Mass/Vol] 121 mg/dL Critically high 74-106 [facility] Comment on above: Performed By: #### H STROPN, CMP ####[facility] [address] [address]Dr. Erasmo Smith Potassium [Moles/Vol] 3.2 mmol/L Critically low 3.5-5.1 [facility] Comment on above: Performed By: #### H STROPN, CMP ####[facility] [address] [address]Dr. Erasmo Smith Protein [Mass/Vol] 7.2 g/dL Normal 6.4-8.2 [facility] Comment on above: Performed By: #### H STROPN, CMP ####[facility] [address] [address]Dr. Erasmo Smith Sodium [Moles/Vol] 138 mmol/L Normal 136-145 [facility] Comment on above: Performed By: #### H ALEXSANDER, CMP ####[facility] [address] [address]Dr. Erasmo Smith Urea nitrogen [Mass/Vol] 17.0 mg/dL Normal 7.0-18.0 [facility] Comment on above: Performed By: #### H ALEXSANDER, CMP ####[facility] [address] [address]Dr. Erasmo Smith Urea nitrogen/Creatinine [Mass ratio] 24.6 mg/mg Normal [facility] Comment on above: Performed By: #### H ALEXSANDER, CMP ####[facility] [address] [address]Dr. Erasmo Smith PROTIMEon 2022 INR Coag (PPP) [Relative time] 3.58 {INR} Normal [facility] Comment on above: Performed By: #### P T, PTT #### [facility] [address] [place] [address] Dr. Erasmo Smith INR GUIDELINES SEE BELOW Normal [facility] Comment on above: Result Comment: ABNER RED INR: 2.0 - 3.0 CONDITIONS NOT LISTED BELOW 2.5 - 3.5 FOR PROSTHETIC HEART VALVE REPLACEMENT 2.5 - 3.5 RECURRENT THROMBOSIS Performed By: #### P T, PTT #### [facility] [address] [address] [address] Erasmo Smith PT Coag (PPP) [Time] 35.3 s Critically high 9.0-11.6 [facility] Comment on above: Performed By: #### P T, PTT #### [facility] [address] [address] [address] Erasmo Smith PTTon 2022 aPTT Coag (Bld) [Time] 40.3 s Critically high 22.3-36. 2 [facility] Comment on above: Performed By: #### P T, PTT #### [facility] [address] [address] [address] Erasmo Smith TROPONIN, HIGH SENSITIVITYon 2022 HSTROP 194.7 pg/mL Critically high 4.0-51.3 [facility] Comment on above: Result Comment: CUT- OFF POINTS HAVE BEEN ESTABLISHED BASED ON THE FOURTH UNIVERSAL DEFINITIONS OF MYOCARDIAL INFARCTION. THE UPPER REFERENCE LIMIT (URL) OF TROPONIN, DEFINED THE 99TH PERCENTILE OF cTnI DISTRIBUTION IN A REFERENCE POPULATION, HAS BEEN CONFIRMED THE DECISION THRESHOLD FOR HI DIAGNOSIS. Performed By: #### C MREP #### [facility] [address] [address] [address] Erasmo Smith HSTROP 218.0 pg/mL Critically high 4.0-51.3 [facility] Comment on above: Result Comment: CUT- OFF POINTS HAVE BEEN ESTABLISHED BASED ON THE FOURTH UNIVERSAL DEFINITIONS OF MYOCARDIAL INFARCTION. THE UPPER REFERENCE LIMIT (URL) OF TROPONIN, DEFINED THE 99TH PERCENTILE OF cTnI DISTRIBUTION IN A REFERENCE POPULATION, HAS BEEN CONFIRMED THE DECISION THRESHOLD FOR HI DIAGNOSIS. Performed By: #### B MAIL SORTER #### [facility] [address] [address] [address] Erasmo Smith XR CHEST 1 Von [...] by: HONG ALSTON Date: 2022 14:18 Normal [facility] MAMM SCREEN 3D TOÑITO CADon 11-26-2022 MG MAMM SCREEN 3D TOÑITO CAD Patient: BREANN STARKS Exam Date: 11/26/2022 : 1945 Gender:F Ordering : DR LUISANA JOHNSON . Admission #: [id number] Family : Order #: [id number] CLICK HERE TO VIEW EXAM RADIOLOGY REPORT [...] Treatments None Family Cancers None LOCATION: The [facility] BREAST COMPOSITION: Heterogeneously dense,which may obscure small [...] LUMP SHOULD BE BIOPSIED. Dictated by: Paula Brown M.D. on 11/26/2022 at 14:10 Approved by: Paula Brown M.D. on 11/26/2022 at 14:13 Normal [facility] PROF 14(COMP METB)on 022 Albumin [Mass/Vol] 3.8 g/dL Normal 3.4-5.0 [facility] Comment on above: Performed By: #### C MREP #### [facility] [address] [place] [address] Dr. Erasmo Smith Albumin/Globulin [Mass ratio] 0.8 {ratio} Normal [facility] Comment on above: Performed By: #### C MREP #### [facility] [address] [place] [address] Dr. Erasmo Smith ALP [Catalytic activity/Vol] 102 U/L Normal 46-116 [facility] Comment on above: Performed By: #### C MREP #### [facility] [address] [address] [address] Erasmo Smith ALT [Catalytic activity/Vol] 47 U/L Normal 14-59 [facility] Comment on above: Performed By: #### C MREP #### [facility] [address] [address] [address] Erasmo Smith Anion gap [Moles/Vol] 12.5 mmol/L Normal [facility] Comment on above: Performed By: #### C MREP #### [facility] [address] [address] [address] Erasmo Smith AST [Catalytic activity/Vol] 36 U/L Normal 15-37 [facility] Comment on above: Performed By: #### C MREP #### [facility] [address] [address] [address] Erasmo Smith Bilirubin [Mass/Vol] 0.3 mg/dL Normal 0.2-1.0 [facility] Comment on above: Performed By: #### C MREP #### [facility] [address] [address] [address] Erasmo Smith Calcium [Mass/Vol] 8.9 mg/dL Normal 8.5-10.1 [facility] Comment on above: Performed By: #### C MREP #### [facility] [address] [address] [address] Erasmo Smith Chloride [Moles/Vol] 106 mmol/L Normal 98-107 [facility] Comment on above: Performed By: #### C MREP #### [facility] [address] [address] [address] Erasmo Smith CO2 [Moles/Vol] 26.9 mmol/L Normal 21.0-32.0 [facility] Comment on above: Performed By: #### C MREP #### [facility] [address] [address] [address] Erasmo Smith Creatinine [Mass/Vol] 0.79 mg/dL Normal 0.55-1.02 [facility] Comment on above: Performed By: #### C MREP #### [facility] [address] [address] [address] Erasmo Smith EGFR-AF NIGERIAN >60 Normal >=60 [facility] Comment on above: Performed By: #### C MREP #### [facility] [address] [address] [address] Erasmo Smith EGFR-NON AF NIGERIAN >60 Normal >=60 [facility] Comment on above: Performed By: #### C MREP #### [facility] [address] [address] [address] Erasmo Smith Globulin (S) [Mass/Vol] 4.6 g/dL Normal [facility] Comment on above: Performed By: #### C MREP #### [facility] [address] [address] [address] Erasmo Smith Glucose [Mass/Vol] 102 mg/dL Normal 74-106 [facility] Comment on above: Performed By: #### C MREP #### [facility] [address] [address] [address] Erasmo Smith Potassium [Moles/Vol] 4.4 mmol/L Normal 3.5-5.1 [facility] Comment on above: Performed By: #### C MREP #### [facility] [address] [place] [address] Dr. Erasmo Smith Protein [Mass/Vol] 8.4 g/dL Critically high 6.4-8.2 [facility] Comment on above: Performed By: #### C MREP #### [facility] [address] [place] [address] Dr. Erasmo Smith Sodium [Moles/Vol] 141 mmol/L Normal 136-145 [facility] Comment on above: Performed By: #### C MREP #### [facility] [address] [place] [address] Dr. Erasmo Smith Urea nitrogen [Mass/Vol] 28.0 mg/dL Critically high 7.0-18.0 [facility] Comment on above: Performed By: #### C MREP #### [facility] [address] [place] [address] Dr. Erasmo Smith Urea nitrogen/Creatinine [Mass ratio] 35.4 mg/mg Normal [facility] Comment on above: Performed By: #### C MREP #### [facility] [address] [place] [address] Dr. Erasmo Smith CBC AUTO DIFFon 07-12-2022 BASO # 0.1 103/ul Normal 0.0-0.1 [facility] Comment on above: Performed By: #### B MAIL SORTER #### [facility] [address] [address] [address] Erasmo Smith Basophils/100 WBC (Bld) 0.5 % Normal 0.2-2.0 [facility] Comment on above: Performed By: #### B MAIL SORTER #### [facility] [address] [place] [address] Dr. Erasmo Smith EO # 0.2 103/ul Normal 0.0-0.7 [facility] Comment on above: Performed By: #### B MAIL SORTER #### [facility] [address] [place] [address] Dr. Erasmo Smith Eosinophils/100 WBC (Bld) 2.5 % Normal 0.9-7.0 [facility] Comment on above: Performed By: #### B MAIL SORTER #### [facility] [address] [place] [address] Dr. Erasmo Smith Erythrocyte distribution width (RBC) [Ratio] 17.2 % Critically high 11.0-15.0 [facility] Comment on above: Performed By: #### B MAIL SORTER #### [facility] [address] [place] [address] Dr. Erasmo Smith Hematocrit (Bld) [Volume fraction] 35.0 % Critically low 36.0-48.0 [facility] Comment on above: Performed By: #### B MAIL SORTER #### [facility] [address] [place] [address] Dr. Erasmo Smith Hemoglobin (Bld) [Mass/Vol] 11.3 g/dL Critically low 12.0-16.0 [facility] Comment on above: Performed By: #### B MAIL SORTER #### [facility] [address] [place] [address] Dr. Erasmo Smith IG # 0.02 10e3/ul Normal 0.00-0.03 [facility] Comment on above: Performed By: #### B MAIL SORTER #### [facility] [address] [place] [address] Dr. Erasmo Smith IG % 0.2 % Normal 0.0-0.5 [facility] Comment on above: Performed By: #### B MAIL SORTER #### [facility] [address] [place] [address] Dr. Erasmo Smith LYMPH # 2.3 103/ul Normal 1.2-3.8 [facility] Comment on above: Performed By: #### B MAIL SORTER #### [facility] [address] [place] [address] Dr. Erasmo Smith Lymphocytes/100 WBC (Bld) 25.4 % Normal 20.5-60.0 [facility] Comment on above: Performed By: #### B MAIL SORTER #### [facility] [address] [place] [address] Dr. Erasmo Smith MANUAL DIFF REQ NO Normal [facility] Comment on above: Performed By: #### B MAIL SORTER #### [facility] [address] [place] [address] Dr. Erasmo Smith MCH (RBC) [Entitic mass] 25.5 pg Critically low 26.7-34.0 [facility] Comment on above: Performed By: #### B MAIL SORTER #### [facility] [address] [place] [address] Dr. Erasmo Smith MCHC (RBC) [Mass/Vol] 32.3 g/dL Normal 29.9-35.2 [facility] Comment on above: Performed By: #### B MAIL SORTER #### [facility] [address] [place] [address] Dr. Erasmo Smith MCV (RBC) [Entitic vol] 78.8 fL Critically low 81.0-99.0 [facility] Comment on above: Performed By: #### B MAIL SORTER #### [facility] [address] [place] [address] Dr. Erasmo Smith MONO # 0.7 103/ul Normal 0.3-0.8 [facility] Comment on above: Performed By: #### B MAIL SORTER #### [facility] [address] [place] [address] Dr. Erasmo Smith Monocytes/100 WBC (Bld) 7.5 % Normal 1.7-12.0 [facility] Comment on above: Performed By: #### B MAIL SORTER #### [facility] [address] [place] [address] Dr. Erasmo Smith NEUT # 5.9 103/ul Normal 1.4-6.5 [facility] Comment on above: Performed By: #### B MAIL SORTER #### [facility] [address] [place] [address] Dr. Erasmo Smith Neutrophils/100 WBC (Bld) 63.9 % Normal 43.0-75.0 [facility] Comment on above: Performed By: #### B MAIL SORTER #### [facility] [address] [place] [address] Dr. Erasmo Smith Platelet mean volume (Bld) [Entitic vol] 9.0 fL Critically low 9.5-13.5 [facility] Comment on above: Performed By: #### B MAIL SORTER #### [facility] [address] [place] [address] Dr. Erasmo Smith PLT 305 103/ul Normal 150-450 [facility] Comment on above: Performed By: #### B MAIL SORTER #### [facility] [address] [place] [address] Dr. Erasmo Smith RBC 4.44 106/ul Normal 4.20-5.40 [facility] Comment on above: Performed By: #### B MAIL SORTER #### [facility] [address] [place] [address] Dr. Erasmo Smith WBC 9.2 103/ul Normal 4.0-11.0 [facility] Comment on above: Performed By: #### B MAIL SORTER #### [facility] [address] [place] [address] CHEST WO CONon [...] Mild emphysematous changes. Electronically authenticated by: PAULA BROWN Date: 2022-05-27 15:27 Normal [facility] HEMOGLOBINon 04-20-2022 Hemoglobin (Bld) [Mass/Vol] 10.6 g/dL Critically low 12.0-16.0 [facility] Comment on above: Performed By: #### H GB ####[facility] [address] [address]Dr. Erasmo Smith CULTURE SPUTUMon 04-02-2022 CULTURE SPUTUM Isolate 1 Pseudomonas aeruginosa Light growth of ORGANISM 1 Pseudomonas aeruginosa ANTIBIOTIC M.I.C RX STATUS Piperacillin/Tazobac saez 8 S F Ceftazidime 2 S F Imipenem 1 S F Amikacin <=2 S F Gentamicin <=1 S F Tobramycin <=1 S F Ciprofloxacin <=0.25 S F Levofloxacin 0.25 S F Normal [facility] Comment on above: Performed By: #### S PUTCX ####[facility] [address] [place], [place] [address]Dr. Erasmo Smith CYTOLOGYon 03-30-2022 SENT TO REF LAB 03/31/22 Normal [facility] Comment on above: Performed By: #### C YTO #### [facility] [address] [address] [address] Erasmo Smith SPUTUM GRAM STAINon 03-30-20 22 COMMENTS Normal [facility] Comment on above: Performed By: #### B MAIL SORTER #### [facility] [facility] [address] [place] [address] Dr. Erasmo Smith DIPHTHEROIDS Normal [facility] Comment on above: Performed By: #### B MAIL SORTER #### [facility] [address] [address] [address] Erasmo Smith EPITHELIALS <25 Normal [facility] Comment on above: Performed By: #### B MAIL SORTER #### [facility] [address] [address] [address] Erasmo Smith FUNGAL ELEMENTS Normal [facility] Comment on above: Performed By: #### B MAIL SORTER #### [facility] [address] [address] [address] Erasmo Smith GRAM NEG BACILLI FEW Normal [facility] Comment on above: Performed By: #### B MAIL SORTER #### [facility] [address] [address] [address] Erasmo CINTRON NEG DIPPLOCOCCI Normal [facility] Comment on above: Performed By: #### B MAIL SORTER #### [facility] [address] [address] [address] Erasmo Smith GRAM POS BACILLI Normal [facility] Comment on above: Performed By: #### B MAIL SORTER #### [facility] [address] [address] [address] Erasmo Smith GRAM POSITIVE COCCI MANY Normal The [facility] Comment on above: Performed By: #### B MAIL SORTER #### [facility] [address] [place] [address] Dr. Erasmo Smith WBC (Bld) [#/Vol] 10*3/uL Normal [facility] Comment on above: Performed By: #### B MAIL SORTER #### [facility] [address] [address] [address] Erasmo Smith SPUTUM CULTUREon 03-01-2022 Epithelial cells LM Ql (Urine sed) Few Normal [facility] Comment on above: Performed By: #### C XSPTUM ####[facility] [id number] [place], [place] [address]Dr. Erasmo Smith Gram Stain Evaluation Comment Normal [facility] Comment on above: Result Comment: This specimen is of good quality and is acceptable for routine bacterial culture. Performed By: #### C XSPTUM ####[facility] [id number] [place], [place] [id number]. Erasmo Smith Lower Respiratory Culture Final report Normal [facility] Comment on above: Performed By: #### C XSPTUM ####[facility] [address] [address]Dr. Erasmo Smith Result 1 Comment Normal [facility] Comment on above: Result Comment: Few gram positive cocci Performed By: #### C XSPTUM ####[facility] [address] [address]Dr. Erasmo Smith Result Comment: Rout ine respiratory adria Result 2 Normal [facility] Comment on above: Performed By: #### C XSPTUM ####[facility] [address] [address]Dr. Erasmo Smith Result 3 Normal [facility] Comment on above: Performed By: #### C XSPTUM ####[facility] [id number] [place], [place] [address]Dr. Erasmo Smith Result 4 Normal [facility] Comment on above: Performed By: #### C XSPTUM ####[facility] [address] [address]Dr. Erasmo Smith White Blood Cells Few Normal [facility] Comment on above: Performed By: #### C XSPTUM ####[facility] [id number] [place], [place] [address]Dr. Erasmo Smith BNPon 02-24-2022 Natriuretic peptide B (Bld) [Mass/Vol] 319.0 pg/mL Normal <=900.0 [facility] Comment on above: Performed By: #### B MAIL SORTER #### [facility] [address] [address] [address] Erasmo Smith CBC AUTO DIFFon 02-24-2022 BASO # 0.1 103/ul Normal 0.0-0.1 [facility] Comment on above: Performed By: #### C MREP #### [facility] [address] [address] [address] Erasmo Smith Basophils/100 WBC (Bld) 0.5 % Normal 0.2-2.0 [facility] Comment on above: Performed By: #### C MREP #### [facility] [address] [address] [address] Erasmo Smith EO # 0.3 103/ul Normal 0.0-0.7 [facility] Comment on above: Performed By: #### C MREP #### [facility] [address] [place] [address] Dr. Erasmo Smith Eosinophils/100 WBC (Bld) 3.1 % Normal 0.9-7.0 [facility] Comment on above: Performed By: #### C MREP #### [facility] [address] [place] [address] Dr. Erasmo Smith Erythrocyte distribution width (RBC) [Ratio] 15.1 % Critically high 11.0-15.0 [facility] Comment on above: Performed By: #### C MREP #### [facility] [address] [place] [address] Dr. Erasmo Smith Hematocrit (Bld) [Volume fraction] 33.9 % Critically low 36.0-48.0 [facility] Comment on above: Performed By: #### C MREP #### [facility] [address] [place] [address] Dr. Erasmo Smith Hemoglobin (Bld) [Mass/Vol] 10.7 g/dL Critically low 12.0-16.0 [facility] Comment on above: Performed By: #### C MREP #### [facility] [address] [place] [address] Dr. Erasmo Smith IG # 0.03 10e3/ul Normal 0.00-0.03 [facility] Comment on above: Performed By: #### C MREP #### [facility] [address] [place] [address] Dr. Erasmo Smith IG % 0.3 % Normal 0.0-0.5 [facility] Comment on above: Performed By: #### C MREP #### [facility] [address] [place] [address] Dr. Erasmo Smith LYMPH # 2.8 103/ul Normal 1.2-3.8 [facility] Comment on above: Performed By: #### C MREP #### [facility] [address] [address] [address] Erasmo Smith Lymphocytes/100 WBC (Bld) 30.6 % Normal 20.5-60.0 [facility] Comment on above: Performed By: #### C MREP #### [facility] [address] [address] [address] Erasmo Smith MANUAL DIFF REQ NO Normal [facility] Comment on above: Performed By: #### C MREP #### [facility] [address] [address] [address] Erasmo Smith MCH (RBC) [Entitic mass] 26.9 pg Normal 26.7-34.0 [facility] Comment on above: Performed By: #### C MREP #### [facility] [address] [place] [address] Dr. Erasmo Smith MCHC (RBC) [Mass/Vol] 31.6 g/dL Normal 29.9-35.2 [facility] Comment on above: Performed By: #### C MREP #### [facility] [address] [place] [address] Dr. Erasmo Smith MCV (RBC) [Entitic vol] 85.2 fL Normal 81.0-99.0 [facility] Comment on above: Performed By: #### C MREP #### [facility] [address] [place] [address] Dr. Erasmo Smith MONO # 0.7 103/ul Normal 0.3-0.8 [facility] Comment on above: Performed By: #### C MREP #### [facility] [address] [place] [address] Dr. Erasmo Smith Monocytes/100 WBC (Bld) 7.9 % Normal 1.7-12.0 [facility] Comment on above: Performed By: #### C MREP #### [facility] [address] [place] [address] Dr. Erasmo Smith NEUT # 5.3 103/ul Normal 1.4-6.5 [facility] Comment on above: Performed By: #### C MREP #### [facility] [address] [place], [place] [address] Dr. Erasmo Smith Neutrophils/100 WBC (Bld) 57.6 % Normal 43.0-75.0 [facility] Comment on above: Performed By: #### C MREP #### [facility] [address] [address] [address] Erasmo Smith Platelet mean volume (Bld) [Entitic vol] 9.0 fL Critically low 9.5-13.5 [facility] Comment on above: Performed By: #### C MREP #### [facility] [address] [address] [address] Erasmo Smith PLT 249 103/ul Normal 150-450 [facility] Comment on above: Performed By: #### C MREP #### [facility] [address] [address] [address] Erasmo Smith RBC 3.98 106/ul Critically low 4.20-5.40 [facility] Comment on above: Performed By: #### C MREP #### [facility] [address] [address] [address] Erasmo Smith WBC 9.1 103/ul Normal 4.0-11.0 [facility] Comment on above: Performed By: #### C MREP #### [facility] [address] [address] [address] Erasmo Smith CTA CHEST WO W [...] to document clearing. Electronically authenticated by: PAULA BROWN Date: 2022-02-24 18:24 Normal [facility] D-DIMERon 02-24-2022 D-DIMER 1.36 mg/L FEU Critically high <=0.59 The [facility] Comment on above: Performed By: #### D DIM #### [facility] [address] [place] [address] Dr. Erasmo Smith D-DIMER COMMENTS SEE BELOW Normal [facility] Comment on above: Result Comment: Incr eases [...] hospitalization. Performed By: #### D DIM #### [facility] [address] [address] [address] Erasmo Smith PROF 14(COMP METB)on 022 Albumin [Mass/Vol] 3.6 g/dL Normal 3.4-5.0 [facility] Comment on above: Performed By: #### C MREP #### [facility] [address] [address] [address] Erasmo Smith Albumin/Globulin [Mass ratio] 0.8 {ratio} Normal [facility] Comment on above: Performed By: #### C MREP #### [facility] [address] [address] [address] Erasmo Smith ALP [Catalytic activity/Vol] 95 U/L Normal 46-116 [facility] Comment on above: Performed By: #### C MREP #### [facility] [address] [address] [address] Erasmo Smith ALT [Catalytic activity/Vol] 45 U/L Normal 14-59 [facility] Comment on above: Performed By: #### C MREP #### [facility] [address] [address] [address] Erasmo Smith Anion gap [Moles/Vol] 15.9 mmol/L Normal [facility] Comment on above: Performed By: #### C MREP #### [facility] [address] [place] [address] Dr. Erasmo Smith AST [Catalytic activity/Vol] 33 U/L Normal 15-37 [facility] Comment on above: Performed By: #### C MREP #### [facility] [address] [place] [address] Dr. Erasmo Smith Bilirubin [Mass/Vol] 0.5 mg/dL Normal 0.2-1.0 [facility] Comment on above: Performed By: #### C MREP #### [facility] [address] [place] [address] Dr. Erasmo Smith Calcium [Mass/Vol] 9.1 mg/dL Normal 8.5-10.1 [facility] Comment on above: Performed By: #### C MREP #### [facility] [address] [place] [address] Dr. Erasmo Smith Chloride [Moles/Vol] 103 mmol/L Normal 98-107 [facility] Comment on above: Performed By: #### C MREP #### [facility] [address] [place] [address] Dr. Erasmo Smith CO2 [Moles/Vol] 25.1 mmol/L Normal 21.0-32.0 [facility] Comment on above: Performed By: #### C MREP #### [facility] [address] [address] [address] Erasmo Smith Creatinine [Mass/Vol] 0.77 mg/dL Normal 0.55-1.02 [facility] Comment on above: Performed By: #### C MREP #### [facility] [address] [address] [address] Erasmo Smith EGFR-AF NIGERIAN >60 Normal >=60 [facility] Comment on above: Performed By: #### C MREP #### [facility] [address] [address] [address] Erasmo Smith EGFR-NON AF NIGERIAN >60 Normal >=60 [facility] Comment on above: Performed By: #### C MREP #### [facility] [address] [place] [address] Dr. Erasmo Smith Globulin (S) [Mass/Vol] 4.3 g/dL Normal [facility] Comment on above: Performed By: #### C MREP #### [facility] [address] [place] [address] Dr. Erasmo Smith Glucose [Mass/Vol] 92 mg/dL Normal 74-106 [facility] Comment on above: Performed By: #### C MREP #### [facility] [address] [place] [address] Dr. Erasmo Smith Potassium [Moles/Vol] 4.0 mmol/L Normal 3.5-5.1 [facility] Comment on above: Performed By: #### C MREP #### [facility] [address] [place] [address] Dr. Erasmo Smith Protein [Mass/Vol] 7.9 g/dL Normal 6.4-8.2 [facility] Comment on above: Performed By: #### C MREP #### [facility] [address] [place] [address] Dr. Erasmo Smith Sodium [Moles/Vol] 140 mmol/L Normal 136-145 [facility] Comment on above: Performed By: #### C MREP #### [facility] [address] [place] [address] Dr. Erasmo Smith Urea nitrogen [Mass/Vol] 17.0 mg/dL Normal 7.0-18.0 [facility] Comment on above: Performed By: #### C MREP #### [facility] [address] [address] [address] Erasmo Smith Urea nitrogen/Creatinine [Mass ratio] 22.1 mg/mg Normal [facility] Comment on above: Performed By: #### C MREP #### [facility] [address] [address] [address] Erasmo Smith PROTIMEon 02-24-2022 INR Coag (PPP) [Relative time] 2.28 {INR} Normal [facility] Comment on above: Performed By: #### P T, PTT ####[facility] [id number] [address]Dr. Erasmo Smith INR GUIDELINES SEE BELOW Normal [facility] Comment on above: Result Comment: ABNER RED INR: 2.0 - 3.0 CONDITIONS NOT LISTED BELOW 2.5 - 3.5 FOR PROSTHETIC HEART VALVE REPLACEMENT 2.5 - 3.5 RECURRENT THROMBOSIS Performed By: #### P T, PTT ####[facility] [address] [address]Dr. Erasmo Smith PT Coag (PPP) [Time] 23.3 s Critically high 9.0-11.6 [facility] Comment on above: Performed By: #### P T, PTT ####[facility] [address] [address]Dr. Erasmo Smith PTTon 02-24-2022 aPTT Coag (Bld) [Time] 34.7 s Normal 22.3-36.2 Th [facility] Comment on above: Performed By: #### P T, PTT ####[facility] [id number] [address]Dr. Erasmo Smith TROPONIN, HIGH SENSITIVITYon 02-24-2022 HSTROP 6.6 pg/mL Normal 4.0-51.3 [facility] Comment on above: Result Comment: CUT- OFF POINTS HAVE BEEN ESTABLISHED BASED ON THE FOURTH UNIVERSAL DEFINITIONS OF MYOCARDIAL INFARCTION. THE UPPER REFERENCE LIMIT (URL) OF TROPONIN, DEFINED THE 99TH PERCENTILE OF cTnI DISTRIBUTION IN A REFERENCE POPULATION, HAS BEEN CONFIRMED THE DECISION THRESHOLD FOR HI DIAGNOSIS. Performed By: #### C MREP #### [facility] [address] [place], [place] [address] Dr. Erasmo Smith PROTHROMBIN TIMEon INR Coag (PPP) [Relative time] 1.2 {INR} High 0.86-1.16 [facility] Comment on above: Result Comment: INR Theraputic Range: 2.0-3.5 Performed at [facility] [id number] [place] [id number] PT Coag (PPP) [Time] 12.7 s Normal 9.3-12.7 [facility] ANTICOAGULANT COUMADIN Normal [facility] Vital Signs Date Time Vital Sign Value Performing Clinician Facility 05-22-2024 13:17-0400 Body height 149.9 cm [employer] Work Phone: [facility] 05-22-2024 13:17-0400 Body mass index (BMI) [Ratio] 44.43 kg/m2 [employer] Work Phone: [facility] 05-22-2024 13:17-040 Body weight 99.79 kg [employer] Work Phone: [facility] 03-02-2024 11:51-0400 Blood Pressure Location Ortega Shippo [facility] [place] 03-02-2024 11:51-0400 Diastolic blood pressure 75 mm[Hg] Ortega ALEXANDER [facility] [place] 03-02-2024 11:51-0400 Heart rate 71 /min Ortega PARKL [facility] [place] 03-02-2024 11:51-0400 Respiratory rate 16 /min Ortega PARKL [facility] [place] 03-02-2024 11:51-0400 Systolic blood pressure 118 mm[Hg] Ortega ALEXANDER [facility] [place] 10-07-2021 16:00-0500 Body height 146.69 cm Hong Nevarez Other [employer] Other 10-07-2021 16:00-0500 Body mass index (BMI) [Ratio] 51.01 kg/m2 Hong Nevarez Other [employer] Other 10-07-2021 16:00-0500 Body weight 109.77 kg Hong Nevarez Other [employer] Other 08-26-2021 15:15-0500 Body height 146.69 cm Hong Nevarez Other [employer] Other 08-26-2021 15:15-0500 Body mass index (BMI) [Ratio] 51.07 kg/m2 Hong Nevarez Other [employer] Other 08-26-2021 15:15-0500 Body weight 109.91 kg Hong Nevarez Other [employer] Other Encounters Encounter Date Encounter Type Care Provider Facility Start: 05-22-2024 End: 05-22-2024 ambulatory Jyothi Cruz RT(R) Radiology Comment on above: Radiology XR Start: 05-22-2024 End: 05-22-2024 Patient encounter procedure Jyothi Matt RT(R) Radiology Comment on above: 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); Left shoulder pain, unspecified chronicity Start: 05-22-2024 End: 05-22-2024 Subsequent hospital visit by physician Federico Bruner 1 Work Phone: Radiology Comment on above: Left shoulder pain, unspecified chronicity [M25.512] Start: 05-09-2024 End: 05-09-2024 ambulatory SAKINA MARIO Available Start: 05-02-2024 End: 05-02-2024 Patient encounter procedure MD Shaikh Denis Work Phone: [facility] [place] Work Phone: Start: 05-02-2024 End: 05-02-2024 ambulatory MD Shaikh Denis Work Phone: [facility] Work Phone: Start: 04-16-2024 End: 04-16-2024 ambulatory PEDRO PABLO CRUZ Not Available Start: 04-16-2024 End: 04-16-2024 ambulatory Miguel Murphy MD Facility:[facility] Start: 04-11-2024 End: 04-11-2024 ambulatory SHAIKH CIRA Not Available Start: 04-10-2024 End: 04-10-2024 Patient encounter procedure MD Shaikh Denis Work Phone: [facility] [place] Work Phone: Start: 04-10-2024 End: 04-10-2024 ambulatory MD Shaikh Denis Work Phone: [facility] Work Phone: Start: 04-02-2024 End: 04-02-2024 ambulatory Miguel Murphy MD Facility:[facility] Start: 03-29-2024 End: 03-29-2024 Patient encounter procedure MD Shaikh Denis Work Phone: [facility] Start: 03-29-2024 End: 03-29-2024 ambulatory MD Shaikh Denis Work Phone: [facility] Work Phone: Start: 03-12-2024 End: 03-12-2024 ambulatory SHAIKH CIRA Not Available Start: 03-07-2024 End: 03-07-2024 ambulatory Ortega ALEXANDER Facility::[id number] Start: 03-02-2024 End: 03-02-2024 ambulatory Ortega ALEXANDER Facility:[facility] Start: 03-02-2024 End: 03-02-2024 Patient encounter procedure Ortega ALEXANDER [facility] [place] Start: 03-01-2024 ambulatory Ortega XAVIERMariah Facility:[facility] Start: 02-27-2024 End: 02-27-2024 ambulatory SHAIKH CIRA Not Available Start: 01-17-2024 End: 01-17-2024 ambulatory NICANOR [facility] Start: 12-29-2023 End: 12-29-2023 ambulatory SHAIKH CIRA Not Available Start: 12-27-2023 End: 12-27-2023 ambulatory [facility] Start: 12-26-2023 End: 12-26-2023 ambulatory Miguel Murphy MD Facility:[facility] Start: 12-05-2023 End: 12-05-2023 ambulatory Miguel Murphy MD Facility:[facility] Start: 11-16-2023 End: 11-16-2023 ambulatory Shaikh Cira Facility:[facility] Start: 11-07-2023 End: 11-07-2023 ambulatory SHAIKH CIRA Not Available Start: 10-17-2023 Cristobal Denis MD Work Phone: [facility] Start: 10-17-2023 Cristobal Denis MD Work Phone: [facility] Start: 10-17-2023 End: 10-17-2023 ambulatory SHAIKH CIRA Not Available Start: 10-11-2023 End: 10-11-2023 ambulatory MD Shaikh Denis Work Phone: [facility] Work Phone: Start: 10-11-2023 End: 10-11-2023 Patient encounter procedure MD Shaikh Denis Work Phone: [facility] [place] Work Phone: Start: 09-08-2023 End: 09-08-2023 Patient encounter procedure MD Shaikh Denis Work Phone: [facility] Start: 09-08-2023 End: 09-08-2023 ambulatory MD Shaikh Denis Work Phone: [facility] Work Phone: Start: 09-06-2023 End: 09-06-2023 ambulatory SHAIKH CIRA Not Available Start: 09-06-2023 Patient encounter procedure Shaikh Cira CUBA Work Phone: [facility] Start: 07-08-2023 End: 07-08-2023 ambulatory [facility] Start: 07-05-2023 End: 07-05-2023 ambulatory [facility] Start: 01-31-2023 End: 02-01-2023 ambulatory ANDRIUS GIEDRAITIS Facility:[facility] Start: 01-28-2023 End: 01-29-2023 ambulatory ANDRIUS GIEDRAITIS Facility:[facility] Start: 01-10-2023 End: 02-09-2023 ambulatory SHAIKH Kymberly DENIS Facility:[facility] Start: 12-16-2022 End: 12-17-[address] DOCTOR KENNEDY Facility:[facility] Start: 12-13-2022 End: 01-07-[address] LUISANA JOHNSON . Facility:[facility] Start: 2022 End: 12-03-2022 Evaluation and management of inpatient KAYLEY RIVER . Facility:[facility] Start: 11-26-2022 End: 11-27-[address] LUISANA JOHNSON . Facility:[facility] Start: 11-10-2022 End: 12-10-2022 ambulatory SHAIKH Kymberly DENIS Facility:[facility] Start: 10-13-2022 End: 11-10-2022 ambulatory SHAIKH Kymberly DENIS Facility:[facility] Start: 09-13-2022 End: 10-13-[address] LUISANA JOHNSON . Facility:[facility] Start: 08-12-2022 End: 09-12-[address] LUISANA JOHNSON . Facility:[facility] Start: 07-13-2022 End: 07-14-2022 ambulatory LUIZ SAM . Facility:[facility] Start: 07-13-2022 End: 07-14-[address] LUISANA JOHNSON . Facility:[facility] Start: 07-13-2022 End: 08-11-2022 ambulatory SHAIKH Kymberly DENIS Facility:[facility] Start: 07-12-2022 End: 07-13-[address] LUISANA JOHNSON . Facility:[facility] Start: 06-13-2022 End: 07-12-2022 ambulatory SAHU Kymberly CIRA Facility:[facility] Start: 05-27-2022 End: 05-28-2022 ambulatory LUIZ SAMSA . Facility:[facility] Start: 05-19-2022 End: 05-20-2022 ambulatory LUIZ SAMSA . Facility:[facility] Start: 05-13-2022 End: 06-12-2022 ambulatory Kymberly CIRA Facility:[facility] Start: 04-20-2022 End: 04-21-2022 ambulatory LUIZ SAMSA . Facility:[facility] Start: 04-12-2022 End: 05-12-2022 ambulatory SHAIKH Kymberly DENIS Facility:[facility] Start: 03-30-2022 End: 03-30-[address] LUISANA JOHNSON . Facility:[facility] Start: 03-12-2022 End: 04-09-2022 ambulatory SHAIKH Kymberly DENIS Facility:[facility] Start: 02-25-2022 End: 02-25-[address] LUISANA JOHNSON . Facility:[facility] Start: 02-24-2022 End: 02-25-[address] LUISANA JOHNSON . Facility:[facility] Start: 10-07-2021 End: 10-07-2021 ambulatory Hong Nevarez Other [employer] Other Start: 10-07-2021 Office outpatient visit 15 minutes Hong Nevarez [facility] Start: 08-26-2021 End: 08-26-2021 ambulatory Hong Nevarez Other [employer] Other Start: 08-26-2021 Office outpatient ne w 45 minutes Hong Nevarez [facility] Start: 10-11-2020 End: 10-13-2020 Evaluation and management of inpatient ZANE MAYNOR Facility:[facility] Procedures Date Procedure Procedure Detail Performing Clinician Start: 05-22-2024 Radex shoulder compl ete minimum 2 views Boo Buchanan PA-C Work Phone: Start: 05-02-2024 Radionuclide three-p hase bone study [...] on above: 06/2012 Arthroscopy of shoulder Brice ael XAVIERL Comment on above: left shoulder tear r epaired 08/25 Cardiac catheter (ph ysical object) Ortega ALEXANDER Comment on above: 12/21/ mild CAD Colonoscopy Ortega ALEXANDER Goodreads Comment on above: 2012 repeat 10 years Ligation of fallopian tube Nathan PARKCDP Repair of musculoten dinous cuff of shoulder Ortega PARKCDP Comment on above: right Total abdominal hyst erectomy with bilateral salpingo-oophorectomy Ortega PARKCDP Plan of Treatment Date Care Activity Detail Author Start: 09-12-2027 Screening for malign ant neoplasm of colon [facility] Start: 09-06-2024 Medicare Annual Well ness (AWV) Medicare Annual Wellness (AWV) [facility] Start: 05-22-2024 End: 08-21-2024 C reactive protein [Mass/volume] in Serum or Plasma C-REACTIVE PROTEIN Lab Routine 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) Expected: 05/22/2024, Expires: 08/21/2024 [facility] Comment on above: Expected: 05/22/2024 , Expires: 08/21/2024 Start: 05-22-2024 End: 08-21-2024 CBC W Auto Differential panel - Blood COMPLETE BLOOD COUNT AND DIFFERENTIAL Lab Routine 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) Expected: 05/22/2024, Expires: 08/21/2024 [facility] Comment on above: Expected: 05/22/2024 , Expires: 08/21/2024 Start: 05-22-2024 End: 08-21-2024 Erythrocyte sedimentation rate SEDIMENTATION RATE, WESTERGREN Lab Routine 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) Expected: 05/22/2024, Expires: 08/21/2024 [facility] Comment on above: Expected: 05/22/2024 , Expires: 08/21/2024 Start: 05-13-2024 Covid-19 Vaccine () Covid-19 Vaccine () [facility] Start: 05-13-2024 Influenza vaccination Influenza Vacc ine (#1) [facility] Start: 11-07-2023 End: 11-07-2023 Patient encounter procedure 11/07/2023 2:30 PM EST Office Visit [facility] [address] [place] [address] Shaikh Denis MD [address] [place] [id number] [facility] Start: 10-17-2023 End: 10-17-2023 Patient encounter procedure 10/17/2023 10:15 AM EST Office Visit [facility] [address] [place] [address] Shaikh Denis MD [address] [place] [address] Arrived [facility] Comment on above: Arrived Start: 09-12-2023 Advance Directive Discussion Advance Directive Discussion [facility] Start: 11-30-2012 Screening for osteoporosis Bone Density Screening [facility] Start: 11-30-1997 Shingrix Vaccine (1 of 2) Shingrix Vaccine (1 of 2) [facility] Start: 11-30-1992 Diabetes Screening Diabetes Screenin g [facility] Start: 11-30-1966 Urine microalbumin profile DTaP,Tdap,Td Vaccine (1 - Tdap) [facility] Start: 11-30-1965 Anxiety Screening Anxiety Screening [facility] Start: 11-30-1965 Depression Screening Depression Scre ening [facility] Start: 11-30-1965 Hepatitis C screening Hepatitis C Sc deirdre [facility] Start: 1945 Screening for malign ant neoplasm of colon [facility] End: 06-21-2025 CT Shoulder - left WO contrast CT SHOULDER WO IVCON LEFT Radiology Routine 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) 1 Occurrences starting 05/22/2024 until 06/21/2025 [facility] Work Phone: Comment on above: 1 Occurrences starti ng 05/22/2024 until 06/21/2025 Immunizations Immunization Date Immunization Notes Care Provider Fa jannette 08-25-2023 influenza virus vacc ine, unspecified formulation Ortega NILL [facility] [place] 07-08-2022 influenza virus vacc ine, unspecified formulation Ortega NILL [facility] 08-20-2021 influenza virus vacc ine, unspecified formulation Ortega NILL [facility] 08-20-2021 pneumococcal polysaccharide vaccine, 23 valent Ortega NILL [facility] 11-18-2020 SARS-CoV-2 (COVID-19 ) mRNA-1273 vaccine Ortega NILL [facility] 10-20-2020 SARS-CoV-2 (COVID-19 ) mRNA-1273 vaccine Ortega NILL [facility] 08-04-2020 influenza virus vacc ine, unspecified formulation Ortega NILL [facility] 08-04-2020 pneumococcal conjuga te vaccine, 13 valent Ortega NILL [facility] 08-06-2019 influenza virus vacc ine, unspecified formulation Ortega NILL [facility] 07-05-2017 influenza virus vacc ine, unspecified formulation Ortega NILL [facility] 07-05-2017 pneumococcal conjuga te vaccine, 13 valent Ortega NILL [facility] 06-29-2016 influenza virus vacc ine, unspecified formulation Ortega NILL [facility] 06-25-2015 influenza virus vacc ine, unspecified formulation Ortega PARKL [facility] 06-12-2015 influenza virus vacc ine, unspecified formulation Ortega PARKL [facility] 07-12-2014 influenza virus vacc ine, unspecified formulation Ortega NILL [facility] 08-07-2013 influenza virus vacc ine, unspecified formulation Ortega NILL [facility] Payers Date Payer Category Payer Private Health Insurance 2023 Medicare [id number] 2023 Self-pay [id number] 2023 Managed Care HMO (unspecified) [employer] AETNA [id number] 2023-Present [address] [place] [address] O [id number] 2007 Medicare [id number]. [id number] 1959 Medicare [id number] 1959 Private Health Insurance [facility] [id number] 1947 Unknown [id number] 2.16.840.1.803226.3.579.2. 647 1947 Unknown [id number] 2.16.840.1.935870.3.579.2. 593 1947 Unknown [id number] 2.16.840.1.236682.3.579.2. 593 1947 Unknown [id number] 2.16.840.1.470291.3.579.2. 593 1947 Unknown [id number] 2.16.840.1.833067.3.579.2. 593 1947 Unknown [id number] 2.16.840.1.332480.3.579.2. 593 1947 Unknown [id number] 2.16.840.1.147172.3.579.2. 593 1947 Unknown [id number] 2.16.840.1.817253.3.579.2. 593 1947 Unknown [id number] 2.16.840.1.243627.3.579.2. 593 1947 Unknown [id number] 2.16.840.1.853085.3.579.2. 593 1947 Unknown [id number] 2.16.840.1.302909.3.579.2. 593 1947 Unknown [id number] 2.16.840.1.973886.3.579.2. 593 1947 Unknown [id number] 2.16.840.1.739285.3.579.2. 593 1947 Unknown [id number] 2.16.840.1.544754.3.579.2. 593 1947 Unknown [id number] 2.16.840.1.156844.3.579.2. 593 1947 Unknown [id number] 2.16.840.1.276585.3.579.2. 593 1947 Unknown [id number] 2.16.840.1.623026.3.579.2. 593 1947 Unknown [id number] 2.16.840.1.894793.3.579.2. 593 1947 Unknown [id number] 2.16.840.1.922465.3.579.2. 593 1947 Unknown [id number] 2.16.840.1.793823.3.579.2. 593 1947 Unknown [id number] 2.16.840.1.503654.3.579.2. 593 1947 Unknown [id number] 2.16.840.1.994223.3.579.2. 593 1947 Unknown [id number] 2.16.840.1.911119.3.579.2. 593 1947 Unknown [id number] 2.16.840.1.451063.3.579.2. 593 1947 Unknown [id number] 2.16.840.1.138408.3.579.2. 593 1947 Unknown [id number] 2.16.840.1.325464.3.579.2. 593 1947 Unknown [id number] 2.16.840.1.332839.3.579.2. 593 1947 Unknown [id number] 2.16.840.1.126033.3.579.2. 727 1947 Unknown [id number] 2.16.840.1.155922.3.579.2. 727 1947 Unknown [id number] 2.16.840.1.988508.3.579.2. 196 1947 Unknown [id number] 2.16.840.1.377256.3.579.2. 196 1947 Unknown [id number] 2.16.840.1.105467.3.579.2. 196 1947 Unknown [id number] 2.16.840.1.317312.3.579.2. 196 1947 Unknown [id number] 2.16.840.1.557612.3.579.2. 1259 1947 Unknown [id number] 2.16.840.1.587313.3.579.2. 1259 1947 Unknown [id number] 2.16.840.1.968087.3.579.2. 1258 1947 Unknown [id number] 2..840.1.760098.3.579.2. 1258 1947 Unknown [id number] 2.16.840.1.499951.3.579.2. 1258 1947 Unknown [id number] 2.840.1.751296.3.579.2. 1258 1947 Unknown [id number] 2..840.1.616662.3.579.2. 1258 1947 Unknown [id number] 2.840.1.688894.3.579.2. 1258 1947 Unknown [id number] 2.840.1.388866.3.579.2. 1258 1947 Unknown [id number] 2.840.1.988781.3.579.2. 1258 1947 Unknown [id number] 2.840.1.968346.3.579.2. 1259 Medicare Medicare Outpatient [id number] 1A [id number] Unknown [place] [id number] Unknown [id number] 2.840.1.671662.3.579.2. 531 Unknown [id number] 2.840.1.423004.3.579.2. 531 Unknown [id number] 2.840.1.345822.3.579.2. 531 Unknown [id number] 2.16840.1.721083.3.579.2. 531 Unknown [id number] 2.16840.1.720623.3.579.2. 531 Unknown [id number] 2.840.1.022207.3.579.2. 531 Social History Date Type Detail Facility Start: 08-30-2023 End: 05-22-2024 Sex Assigned At [facility] Start: 1945 Sex Assigned At Female F [facility] Start: 08-18-2023 End: 03-02-2024 Tobacco smoking status NHIS Ex-smoker [facility] History of tobacco use Current smoker [facility] History of tobacco use Cigarette Smoker [facility] Start: 09-02-2023 Alcohol intake Not Asked [facility] Start: 08-30-2023 End: 05-22-2024 History of Social function [facility] Within the last year , have you been afraid of your partner or ex-partner? No [facility] How often do you att end restoration or orthodox services? Patient refused [facility] Do you belong to any clubs or organizations such as restoration groups, unions, fraternal or athletic groups, or [...] on file [facility] Start: 04-27-2013 End: 05-22-2024 Tobacco smoking status NHIS Never smoked tobacco (finding) [facility] Start: 05-22-2024 Tobacco use and exposure Smoke less tobacco non-user [facility] Start: 05-22-2024 Alcoholic beverage intake Curr ent drinker of alcohol (finding) [facility] Functional Status Date Assessment Result Facility 03-02-2024 Functional Status N/A [facility] [place] Clinical Notes 08-26-2021 to 05-22-2024 Boo Buchanan PA-C - 05/22/2024 1:39 PM Ketty Meyersa, RT(R) - 05/22/2024 1:25 PM EDT Note Date & Type Note Facility 05-22-2024 Note HNO ID: [id number] Author: BOO BUCHANAN PA-C Service: ? Author Type: Physician Investment Banking Analyst Type: Progress Notes Filed: 05/22/2024 13:53 Note Text: This document has been created with the use of voice recognition technology. It may contain inaccuracies: misspellings, inaccurate syntax or word sense that escaped review. The patient is seen at the request of Pedro Pablo Cruz PA-C for evaluation and an opinion regarding treatment. A copy of this report will remain in the shared medical record CHIEF COMPLAINT: Breann Starks is a 78 year old female who presents today for new evaluation of left shoulder pain. HISTORY OF PRESENT ILLNESS: PAIN EVALUATION 05/22/2024 1306 Pain Level: 10 Pain Location: Shoulder-Left Description: Stabbing;Burning Duration Amount of Time: 3 Duration Units: Months Frequency: Intermittent Intervention/Comfort measure: Reposition;Relaxation;Medication; Positioning baclofen, percocet HISTORY: Breann Starks has complains of left shoulder pain s/p left reverse total shoulder arthroplasty from [address] Lazar. Past medical history of A-fib, COPD, obesity. States she has had a history of pain postoperatively. She was sent to spine care for suspicion of cervical radiculopathy initially. Her shoulder pain has persisted to the point recently when she has sought care from her primary care. Her primary care ordered a bone scan of the left shoulder and radiographs. There has been some concern for periprosthetic lucencies about the glenoid components and uptake on the bone scan in this region. She was recommended for second opinion at [facility]. She also had a CRP and ESR taken recently which were elevated. WBCs were normal. No other musculoskeletal complaints ROS: REVIEW OF SYSTEMS: Constitutional: patient denies any recent fever or significant change in weight Cardiovascular: patient denies any chest pain at rest Respiratory: patient denies any shortness of breath or cough Gastrointestinal: patient denies any current abdominal discomfort Integumentary: patient denies any recent skin changes Musculoskeletal: as noted in the HPI Neurologic: as noted in the HPI Endocrine: patient denies a current diagnosis of diabetes Hematologic/Lymphatic: on DOAC Psychologic: negative for any recent depression or anxiety issues SOCIAL HISTORY: Tobacco Use: Never FAMILY HISTORY: History reviewed. No pertinent family history. ALLERGIES: ALLERGIES Allergen Reactions Adhesive Swelling PAST MEDICAL HISTORY: PAST MEDICAL HISTORY No date: COPD (chronic obstructive pulmonary disease) ([facility]) SOCIAL HISTORY: Tobacco Use: Never EXAMINATION: GENERAL: Obese ORIENTATION: Alert and oriented to person place and time HABITUS: BMI 44 GAIT: Normal, the patient did not have trouble getting onto the exam table. left shoulder exam: skin intact; no erythema, no ecchymosis, possible effusion; difficult to assess secondary to body habitus Previous surgical scars well-healed Severe irritability with PROM Tenderness to palpation of globally-tender to the acromion, anterior joint capsule, proximal humerus, scapular girdle active less than passive ROM-50/neutral versus 90/30 Bicep with indeterminate course intact sensation to light touch distally good radial pulse no pain with neck ROM RADIOGRAPHS: XR Obtained today and personally reviewed by myself demonstrating status post left reverse total shoulder arthroplasty with some periprosthetic loosening along the glenoid component and superior glenoid screw. No signs of osteolysis about the humeral shaft. Status post left reverse NM three-phase bone scan full body: Uptake in the glenoid region and acromioclavicular region. Consistent with prosthetic loosening versus infection. IMPRESSION: Encounter Diagnosis ICD-10-CM 1. 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 (FORM[facility]) T84.84XA CT SHOULDER WO IVCON LEFT Z96.612 2. Left shoulder pain, unspecified chronicity M25.512 XR SHOULDER ORTHO 4V AP/TRUE AP/LAT/OUTLET LEFT Procedures Plan: Patient presents with pain due to internal prosthesis of the left shoulder status post left reverse total shoulder arthroplasty. She is following up with Dr. Lazar tomorrow in office, despite being told by him he cannot take care of her operatively because he does not except her insurance. I have concerns for loosening of the glenoid component. Is unclear if there is infection present. The shoulder will need to be aspirated, will leave this up to upper extremity surgeon. They have been given the name González Abarca he already, I explained this would be a good person to see for additional care if Dr. Lazar cannot take care of her. I ordered some additional inflammatory markers for trending purposes and a CT scan of her shoulder for further evaluation of the hardware. Bone scan performed at [facility] to be uploaded to the system. Boo Buchanan (more content not included)... [facility] 05-22-2024 History of Present illness Narrative Images from the original note were not included. This document has been created with the use of voice recognition technology. It may contain inaccuracies: misspellings, inaccurate syntax or word sense that escaped review. The patient is seen at the request of Pedro Pablo Cruz PA-C for evaluation and an opinion regarding treatment. A copy of this report will remain in the shared medical record CHIEF COMPLAINT: Breann Starks is a 78 year old female who presents today for new evaluation of left shoulder pain. HISTORY OF PRESENT ILLNESS: PAIN EVALUATION 05/22/2024 1306 Pain Level: 10 Pain Location: Shoulder-Left Description: Stabbing;Burning Duration Amount of Time: 3 Duration Units: Months Frequency: Intermittent Intervention/Comfort measure: Reposition;Relaxation;Medication; Positioning baclofen, percocet HISTORY: Breann Starks has complains of left shoulder pain s/p left reverse total shoulder arthroplasty from [address] Lazar. Past medical history of A-fib, COPD, obesity. States she has had a history of pain postoperatively. She was sent to spine care for suspicion of cervical radiculopathy initially. Her shoulder pain has persisted to the point recently when she has sought care from her primary care. Her primary care ordered a bone scan of the left shoulder and radiographs. There has been some concern for periprosthetic lucencies about the glenoid components and uptake on the bone scan in this region. She was recommended for second opinion at [facility]. She also had a CRP and ESR taken recently which were elevated. WBCs were normal. No other musculoskeletal complaints ROS: REVIEW OF SYSTEMS: Constitutional: patient denies any recent fever or significant change in weight Cardiovascular: patient denies any chest pain at rest Respiratory: patient denies any shortness of breath or cough Gastrointestinal: patient denies any current abdominal discomfort Integumentary: patient denies any recent skin changes Musculoskeletal: as noted in the HPI Neurologic: as noted in the HPI Endocrine: patient denies a current diagnosis of diabetes Hematologic/Lymphatic: on DOAC Psychologic: negative for any recent depression or anxiety issues SOCIAL HISTORY: Tobacco Use: Never FAMILY HISTORY: History reviewed. No pertinent family history. ALLERGIES: ALLERGIES Allergen Reactions Adhesive Swelling PAST MEDICAL HISTORY: PAST MEDICAL HISTORY No date: COPD (chronic obstructive pulmonary disease) (FORM[facility]LY [facility]) SOCIAL HISTORY: Tobacco Use: Never EXAMINATION: GENERAL: Obese ORIENTATION: Alert and oriented to person place and time HABITUS: BMI 44 GAIT: Normal, the patient did not have trouble getting onto the exam table. left shoulder exam: skin intact; no erythema, no ecchymosis, possible effusion; difficult to assess secondary to body habitus Previous surgical scars well-healed Severe irritability with PROM Tenderness to palpation of globally-tender to the acromion, anterior joint capsule, proximal humerus, scapular girdle active less than passive ROM-50/neutral versus 90/30 Bicep with indeterminate course intact sensation to light touch distally good radial pulse no pain with neck ROM RADIOGRAPHS: XR Obtained today and personally reviewed by myself demonstrating status post left reverse total shoulder arthroplasty with some periprosthetic loosening along the glenoid component and superior glenoid screw. No signs of osteolysis about the humeral shaft. Status post left reverse NM three-phase bone scan full body: Uptake in the glenoid region and acromioclavicular region. Consistent with prosthetic loosening versus infection. IMPRESSION: Encounter Diagnosis ICD-10-CM 1. 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 ([facility]) T84.84XA CT SHOULDER WO IVCON LEFT Z96.612 2. Left shoulder pain, unspecified chronicity M25.512 XR SHOULDER ORTHO 4V AP/TRUE AP/LAT/OUTLET LEFT Procedures Plan: Patient presents with pain due to internal prosthesis of the left shoulder status post left reverse total shoulder arthroplasty. She is following up with Dr. Lazar tomorrow in office, despite being told by him he cannot take care of her operatively because he does not except her insurance. I have concerns for loosening of the glenoid component. Is unclear if there is infection present. The shoulder will need to be aspirated, will leave this up to upper extremity surgeon. They have been given the name González Abarca he already, I explained this would be a good person to see for additional care if Dr. Lazar cannot take care of her. I ordered some additional inflammatory markers for trending purposes and a CT scan of her shoulder for further evaluation of the hardware. Bone scan performed at [facility] to be uploaded to the system. Boo Buchanan PA-C documented in this encounter [facility] 05-22-2024 Note HNO ID: [id number] Author: JYOTHI CRUZ RT(R) Service: ? Author Type: Technologist Type: Progress Notes Filed: 05/22/2024 13:25 Note Text: Radiology Service Progress Note PATIENT NAME: Breann Starks DATE OF SERVICE: May 22, 2024 TIME: 1:25 PM PATIENT IDENTITY VERIFICATION COMPLETED USING TWO (2) IDENTIFIERS: Name and Date of confirmed by patient verbally. FALL SCREENING: Has the patient had 2 falls in the last year or 1 fall with injury or currently using an Ambulatory Assistive Device (Walker, Cane, Wheelchair, Crutches, etc.)? Yes, Patient High Risk for Falls What interventions were put in place to prevent falls during this visit? Instructed Patient to Call for Help if Needed, Offered Assistance with Transfers/Clothing, Instructed Patient to Remain Seated (Not on Exam Table) Until Exam, and Increased Observations by Caregivers PATIENT GENDER DATA: Female. status: : No status: NO. PATIENT RELEVANT IMPLANT DATA REVIEWED: Not Applicable PATIENT PRESENTS WITH AN IMPLANTABLE OR ATTACHED HEALTH ASSISTANT: No RADIOLOGY DEPARTMENT: General X-ray: Exam(s) Completed: Upper Extremity X-Ray(s): Shoulder, AP / TRUE AP / AXILLARY / SUPRA OUTLET left PERIPHERAL IV DATA: Not applicable SIGNED BY: RT Chaparrita(R) May 22, 2024 1:25 PM [facility] 05-22-2024 History of Present illness Narrative Radiology Service Progress Note PATIENT NAME: Breann Starks DATE OF SERVICE: May 22, 2024 TIME: 1:25 PM PATIENT IDENTITY VERIFICATION COMPLETED USING TWO (2) IDENTIFIERS: Name and Date of confirmed by patient verbally. FALL SCREENING: Has the patient had 2 falls in the last year or 1 fall with injury or currently using an Ambulatory Assistive Device (Walker, Cane, Wheelchair, Crutches, etc.)? Yes, Patient High Risk for Falls What interventions were put in place to prevent falls during this visit? Instructed Patient to Call for Help if Needed, Offered Assistance with Transfers/Clothing, Instructed Patient to Remain Seated (Not on Exam Table) Until Exam, and Increased Observations by Caregivers PATIENT GENDER DATA: Female. status: : No status: NO. PATIENT RELEVANT IMPLANT DATA REVIEWED: Not Applicable PATIENT PRESENTS WITH AN IMPLANTABLE OR ATTACHED HEALTH ASSISTANT: No RADIOLOGY DEPARTMENT: General X-ray: Exam(s) Completed: Upper Extremity X-Ray(s): Shoulder, AP / TRUE AP / AXILLARY / SUPRA OUTLET left PERIPHERAL IV DATA: Not applicable SIGNED BY: RT Chaparrita(R) May 22, 2024 1:25 PM documented in this encounter [facility] 03-02-2024 Note Chief Complaint consultation for anemia HPI Staff 78 year old female presents on consultation from [facility] for anemia. Labs completed yesterday with [...] PSVT, spinal stenosis, cervical radiculopathy; referred from [facility] ED for anemia, low iron, [...] (paroxysmal supraventricular t (more content not included)... [facility] Comment on above: Result Comment: [...] All other systems reviewed and are negative. [facility] 01-17-2024 Note Cardiovascular Medic [facility] SUBJECTIVE Chief Complaint Patient presents with Atrial Fibrillation Breann Starks is a 78 y.o. female here for follow-up. HPI PMHx: A-fib, atrial tachycardia s/p ablation 2005, sick sinus syndrome s/p PPM 10/2020 dual-chamber [employer], COPD, mild CAD s/p cardiac cath 2010, SHAWANDA noncompliant with mask, and obesity. She has been doing well since last seen. No significant changes. Denies c/o CP, dyspnea, orthopnea, PND, LE edema, dizziness/LH, palpitations, syncope. Patient Active Problem List Diagnosis Disorder of bursae of shoulder region Chronic obstructive lung disease (CMS/HCC) Atherosclerosis of platinum coronary artery of platinum heart without angina pectoris Diaphragmatic hernia Edema [...] Final Monocytes Absolu (more content not included)... [facility] 07-05-2023 Note [facility] Consult Note [...] sick sinus syndrome s/p PPM 10/2020 dual-chamber [employer], COPD, mild CAD s/p cardiac cath [...] could not afford DOAC. Patient underwent dual-chamber [employer] pacemaker placement on 10/13/2020. On subsequent [...] coming from the right superior pulmonary vein PMH: No past medical history on file. [...] both knees Hypocalcemi (more content not included)... [facility] 10-07-2021 Evaluation note Encounter Date Diagnosis Assessment Notes Sep, LOJA (nonalcoholic steatohepatitis ) (ICD-10 - K75.81) OBTAIN FIBROSURE RESULTS FROM [facility] RE[facility] ON RESULTS PT ENCOURAGED WEIGHT LOSS RTO ONE YEAR WITH LABS ANNUALLY Sep, Unspecified cirrhosis of liver (ICD-10 - K74.60) [employer] Other 12-15-2021 Evaluation note* Encounter Date Diagnosis Assessment Notes Treatment Notes Treatment Clinical Notes Aug, Nonalcoholic steatohepatitis (LOJA) (ICD-10 - K75.81) RTO 6-8 WEEKS 15 Aug, 2021 Unspecified cirrhosi s of liver (ICD-10 - K74.60) Aug, Morbid obesity (ICD- 10 - E66.01) [employer] Other Evaluation + Plan note No data available for this section [facility] [place] Evaluation noteNo assessment information available [facility] Work Phone: Evaluation note* Diagnosis 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)- Primary Left shoulder pain, unspecified chronicity Left shoulder pain, unspecified chronicity documented in this encounter [facility]* Diagnosis Left shoulder pain, unspecified chronicity documented in this encounter [facility] general Narrative - Reported* Type Description Date [...] Surgical History pacemaker Hospitalization History see above [employer] Other Hospital Discharge instructions No data available for this section [facility] Progress note No data available for this section [facility] [place] Reason for referral (narrative)* Diagnostic Procedure Only (Routine) - Closed Specialty Diagnoses / Procedures Referred By Contac t Referred To Contact XR IMAGING Diagnoses Left shoulder pain, unspecified chronicity Procedures XR SHOULDER ORTHO 4V AP/TRUE AP/LAT/OUTLET LEFT RADEX SHOULDER COMPLETE MINIMUM 2 VIEWS Boo Buchanan PA-C [address] [facility] [place] [address] [place] [address] Referral ID Status Reason Start Date Expiration Date V isits Requested Visits Authorized [id number] Closed Auto-Generate d Referral 05/08/2024 06/07/2025 1 1 [facility] N[facility]ative* Diagnostic Procedure Only (Routine) - Closed Specialty Diagnoses / Procedures Referred By Millie t Referred To Contact XR IMAGING Diagnoses Left shoulder pain, unspecified chronicity Procedures XR SHOULDER ORTHO 4V AP/TRUE AP/LAT/OUTLET LEFT RADEX SHOULDER COMPLETE MINIMUM 2 VIEWS Boo Buchanan PA-C [address] [place] [address] [place] [address] Referral ID Status Reason Start Date Expiration Date V isits Requested Visits Authorized [id number] Closed Auto-Generate d Referral 05/08/2024 06/07/2025 1 1 [facility] Summary Purpose Family History No Family History [...] M25.512 Chief Complaint m25.512 M25.512 m25.512 z96.612 Reason for Referral Specialty Diagnoses / Procedures Referred By Millie egan Referred To Contact CT IMAGING Diagnoses 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) Procedures CT SHOULDER WO IVCON LEFT CT UPPER EXTREMITY W/O CONTRAST MATERIAL Boo Buchanan PA-C [address] [place] [address] [place] [address] Referral ID Status Reason Start Date Expiration Date Visits Requested Visits Authorized [id number] New Request Auto-Generat ed Referral 05/22/2024 06/21/2025 1 1 Specialty Diagnoses / Procedures Referred By Millie egan Referred To Contact XR IMAGING Diagnoses Left shoulder pain, unspecified chronicity Procedures XR SHOULDER ORTHO 4V AP/TRUE AP/LAT/OUTLET LEFT RADEX SHOULDER COMPLETE MINIMUM 2 VIEWS Boo Buchanan PA-C [address] [facility] [place] [address] [place] [address] Referral ID Status Reason Start Date Expiration Date V isits Requested Visits Authorized [id number] Closed Auto-Generate d Referral 05/08/2024 06/07/2025 1 1 Additional Source Comments INFORMATION SOURCE (unrecogn ized section and content) DATE CREATED AUTHOR 10/23/2021 [facility] DATE CREATED AUTHOR AUTHOR'S ORGANIZ ATION 01/22/2022 [facility] DATE CREATED AUTHOR AUTHOR'S ORGANIZ ATION 02/18/2023 [facility] DATE CREATED AUTHOR AUTHOR'S ORGANIZ ATION 03/08/2024 [facility] DATE CREATED AUTHOR AUTHOR'S ORGANIZ ATION 03/11/2024 [facility] DATE CREATED AUTHOR AUTHOR'S ORGANIZ ATION 04/30/2024 [facility] DATE CREATED AUTHOR AUTHOR'S ORGANIZ ATION 05/04/2024 [facility] DATE CREATED AUTHOR AUTHOR'S ORGANIZ ATION 05/11/2024 [facility] EPIC DATE CREATED AUTHOR AUTHOR'S ORGANIZ ATION 05/24/2024 [facility] REASON FOR VISIT (unrecogniz ed section and content) Reason Comments Radiology XR Reason Comments New Specialty Diagnoses / Procedures Referred By Millie egan Referred To Contact Orthopedics / [facility] Diagnoses Acute pain of left shoulder History of reverse total replacement of left shoulder joint Procedures OFFICE/OUTPATIENT NEW HIGH MDM 60 MINUTES OFFICE/OUTPATIENT ESTABLISHED HIGH MDM 40 MIN AMB REFERRAL TO ORTHOPAEDIC SURGERY Pedro Pablo Cruz PA [address] [facility] [address] [place] [address] González Alvarado MD [address] [place] [address] Referral ID Status Reason Start Date Expiration Date V isits Requested Visits Authorized [id number] Authorized 05/08/2024 09/11/2024 99 99 Care Teams (unrecognized sec tion and content) [...] October 11, 2023 End: October 11, 2023 [employer] Relationship Specialty Start Date End Date [...] May 02, 2024 End: May 02, 2024 [employer] Relationship Specialty Start Date End Date Luisana Johnson MD [address] [place] [id number] PCP - General 01/05/06 Pedro Pablo Cruz MD [address] [place] [id number] Referring Infectious Diseases 05/07/24 [employer] Relationship Specialty Start Date End Date Luisana Johnson MD [address] [place], [facility] PCP - General 01/05/06 Pedro Pablo Cruz MD [address] [place], [place] [id number] Referring Infectious Diseases 05/07/24 [employer] Relationship Specialty Start Date End Date Luisana Johnson MD [address] [place], [facility] PCP - General 01/05/06 Pedro Pablo Cruz MD [address] [place] [address] Referring Infectious Diseases 05/07/24 Goals (unrecognized section and content) Goals may be documented in a n alternate section Source Comments (unrecognize d section and content) In the event this informatio n is protected by the Federal Confidentiality of Alcohol and Drug Abuse Patient Records regulations: The Federal rules restrict any use of the information to criminally investigate or prosecute any alcohol or drug abuse patient.[facility] the event this information is protected by the Federal Confidentiality of Alcohol and Drug Abuse Patient Records regulations: The Federal rules restrict any use of the information to criminally investigate or prosecute any alcohol or drug abuse patient.[facility] Hospital[facility] the event this information is protected by the Federal Confidentiality of Alcohol and Drug Abuse Patient Records regulations: The Federal rules restrict any use of the information to criminally investigate or prosecute any alcohol or drug abuse patient.[facility] FOR RECORDS PERTAINING TO PATIENTS WHO ARE [...] BE BASED ON THE PRIMARY CLINICAL RECORDS. [facility] [employer] [facility]. provides no warranty or guarantee of the accuracy or completeness of information in this document.
--- NOTE | 2024-05-25 16:09 | XR_ITS ---
The [place] [id number] Patient Name: MAXIMUS HERRMANN MRN: [id number] date: 1945 Sex: F Assigned Patient Location: ED.MAIN Current Patient Location: ER Accession/Order Number: [id number] Exam Date: 05/25/2024 16:15 Report Date: 05/25/2024 16:45 At the request of: NANO RUCKER Procedure: XR chest 1V EXAMINATION: XR chest 1V, , 05/25/2024 4:15 PM EDT INDICATION: cough HISTORY: Ordering Provider Reason for Exam: cough Technologist Note: Additional: COMPARISON: XR chest 2V Date 02/29/2024 TECHNIQUE: Chest x-ray: One view. FINDINGS: This is a limited examination due to patient body habitus and overlying soft tissues. Hazy changes are seen in the bilateral lower chest which is felt to be related to superimposed soft tissues. However, hazy infiltrates cannot be excluded. A lateral view of the chest versus CT imaging may be considered for better evaluation. No significant pneumothorax or pleural effusion is seen. Heart is normal in size. Patient is post reverse left shoulder arthroplasty. XR/XR chest 1V IMPRESSION: This is a limited examination due to patient body habitus and overlying soft tissues. Hazy changes are seen in the bilateral lower chest which is felt to be related to superimposed soft tissues. However, hazy infiltrates cannot be excluded. A lateral view of the chest versus CT imaging may be considered for better evaluation. Electronically authenticated by: TAM DIAZ Date: 05/25/2024 16:45
[2024-05-25 16:34] LABS: Basophils Absolute Auto 0.1 10^3/uL (0.0-0.1); Basophils Percent Auto 0.5 % (0.2-2.0); Eosinophils Absolute Auto 0.1 10^3/uL (0.0-0.7); Eosinophils Percent Auto 0.8 % (0.9-7.0); Hematocrit 32.3 % (36.0-48.0); Hemoglobin 9.6 g/dL (12.0-16.0); Immature Granulocytes Abs Auto 0.07 10^3/uL (0.00-0.03); Immature Granulocytes Pct Auto 0.5 % (0.0-0.5); Lymphocytes Absolute Auto 2.1 10^3/uL (1.2-3.8); Lymphocytes Percent Auto 15.7 % (20.5-60.0); Mean Corpuscular HGB Conc 29.7 g/dL (29.9-35.2); Mean Corpuscular Hemoglobin 22.9 pg (26.7-34.0); Mean Corpuscular Volume 77.1 fL (81.0-99.0); Mean Platelet Volume 9.1 fL (9.5-13.5); Monocytes Absolute Auto 0.9 10^3/uL (0.3-0.8); Monocytes Percent Auto 6.7 % (1.7-12.0); Neutrophils Percent Auto 75.8 % (43.0-75.0); Platelet Count 346 10^3/uL (150-450); Red Blood Count 4.19 10^6/uL (4.20-5.40); Red Cell Distribution Width 18.7 % (11.0-15.0); White Blood Count 13.3 10^3/uL (4.0-11.0)
[2024-05-25 17:06] LABS: Alanine Aminotransferase 23 U/L (14-59); Albumin Globulin Ratio 0.5; Albumin Level 2.7 g/dL (3.4-5.0); Alkaline Phosphatase 121 U/L (46-116); Anion Gap 10.6; Aspartate Amino Transferase 34 U/L (15-37); BUN Creatinine Ratio 19.2; Bilirubin Total 0.3 mg/dL (0.2-1.0); Calcium 8.6 mg/dL (8.5-10.1); Carbon Dioxide 28.3 mmol/L (21.0-32.0); Chloride 99 mmol/L (98-107); Estimated GFR (African America >60 (>=60); Estimated GFR (Non-African Ame >60 (>=60); Globulin 5.5 g/dL; Glucose 114 mg/dL (74-106); Potassium 3.9 mmol/L (3.5-5.1); Sodium 134 mmol/L (136-145); Total Protein 8.2 g/dL (6.4-8.2)
[2024-05-25] MEDS: METHYLPREDNISOLONE SOD SUCC PF 125 MG/2 ML VIAL IVP (17:24)
[2024-05-25 17:25] VITALS: BP 148/74; PULSE 67; O2SAT 95
[2024-05-25] MEDS: IPRATROPIUM/ALBUTEROL SULFATE 3 ML AMPUL.NEB IH (17:30)
[2024-05-25 17:31] VITALS: PULSE 67; O2SAT 95
--- NOTE | 2024-05-25 17:45 | ED.GENADUL1 ---
HPI HPI - General Adult General Chief complaint: Upper Respiratory Infection Stated complaint: COUGH Time Seen by Provider: 05/25/24 16:09 Source: patient Mode of arrival: walk-in Limitations: no limitations History of Present Illness HPI narrative: The patient presented to us with 5 days history of a cough she mentioned that initially she noted some cough before, but it got worse over the last 5 days, productive, she also noticed some lower extremity swelling, there is shortness of breath on exertion, she mentioned that she was diagnosed with COPD but she does not believe in inhalers and she does have a breathing machine at home The patient denies any chest pain nausea vomiting or any abdominal pain or diarrhea Related Data Home Medications ?Medication ?Instructions ?Recorded ?Confirmed cholecalciferol (vitamin D3) 125 5,000 unit PO DAILY 02/16/23 04/16/24 mcg (5,000 unit) tablet (Vitamin D3) flecainide 100 mg tablet 100 mg PO Q12H 02/16/23 04/16/24 omeprazole 40 mg capsule,delayed 40 mg PO DAILY 02/16/23 04/16/24 release spironolactone 25 mg tablet 25 mg PO DAILY 02/16/23 04/16/24 (Aldactone) verapamil 180 mg tablet,extended 180 mg PO Q12H 02/16/23 04/16/24 release (Calan SR) apixaban 5 mg tablet (Eliquis) 5 mg PO BID 05/11/23 04/16/24 furosemide 40 mg tablet 40 mg PO DAILY 03/01/24 04/16/24 tramadol 50 mg tablet 50 mg PO QPM 03/06/24 04/16/24 Previous Rx's ?Medication ?Instructions ?Recorded baclofen 10 mg tablet 10 mg PO TID #90 tabs 02/15/24 hydrocodone 5 mg-acetaminophen 325 1 tab PO BID #6 tabs 02/15/24 mg tablet hydrocodone 5 mg-acetaminophen 325 1 tab PO TID PRN pain #90 tabs 05/17/24 mg tablet naloxone 4 mg/actuation nasal 4 mg intranasal Q3M PRN opioid 05/17/24 spray (Narcan) overdose #2 ea benzonatate 100 mg capsule 100 mg PO TID PRN cough #14 caps 05/25/24 cephalexin 500 mg capsule 500 mg PO Q8H 7 days #21 caps 09/13/24 doxycycline hyclate 100 mg tablet 100 mg PO BID 7 days #14 tabs 05/25/24 ipratropium 0.5 mg-albuterol 3 mg 3 ml inhalation Q6H PRN shortness 05/25/24 (2.5 mg base)/3 mL nebulization of breath #90 mL soln prednisone 50 mg tablet 50 mg PO DAILY 5 days #5 tabs 05/25/24 Allergies Allergy/AdvReac Type Severity Reaction Status Date / Time No Known Drug Allergies Allergy Verified 05/25/24 15:52 Opioid HPI Opioid Management Most Recent Opioid Data: Last Pain Scale 7 04/16/24 08:37 Last ED Pain Assessment 05/25/24 16:03 Review of Systems ROS Status of ROS 10 or more systems reviewed and unremarkable except as noted in history and below [facility] Medical History (Updated 05/25/24 @ 17:56 by Holley Johnson MD) Arthritis ?M19.90 - Unspecified osteoarthritis, unspecified site (ICD-10) Chronic obstructive pulmonary disease ?J44.9 - Chronic obstructive pulmonary disease, unspecified (ICD-10) Peptic ulcer ?K27.9 - Peptic ulcer, site unspecified, unspecified as acute or chronic, without hemorrhage or perforation (ICD-10) Dyspnea on exertion ?R06.09 - Other forms of dyspnea (ICD-10) Anemia ?D64.9 - Anemia, unspecified (ICD-10) Hypertension ?I10 - Essential (primary) hypertension (ICD-10) Extremity edema ?R60.0 - Localized edema (ICD-10) Congestive heart failure ?I50.9 - Heart failure, unspecified (ICD-10) Atrial fibrillation ?I48.91 - Unspecified atrial fibrillation (ICD-10) Shoulder pain ?M25.519 - Pain in unspecified shoulder (ICD-10) Fatty liver ?K76.0 - Fatty (change of) liver, not elsewhere classified (ICD-10) History of shingles ?Z86.19 - Personal history of other infectious and parasitic diseases (ICD-10) Osteoarthritis ?M19.90 - Unspecified osteoarthritis, unspecified site (ICD-10) Pacemaker ?Z95.0 - Presence of cardiac pacemaker (ICD-10) Hiatal hernia ?K44.9 - Diaphragmatic hernia without obstruction or gangrene (ICD-10) Low back pain ?M54.50 - Low back pain, unspecified (ICD-10) Irregular heart beat ?I49.9 - Cardiac arrhythmia, unspecified (ICD-10) Surgical History History of shoulder replacement ?Z96.619 - Presence of unspecified artificial shoulder joint (ICD-10) S/P rotator cuff repair ?Z98.890 - Other specified postprocedural states (ICD-10) History of colonoscopy ?Z98.890 - Other specified postprocedural states (ICD-10) S/P YANELI-BSO ?Z90.710 - Acquired absence of both cervix and uterus (ICD-10) ?Z90.722 - Acquired absence of ovaries, bilateral (ICD-10) ?Z90.79 - Acquired absence of other genital organ(s) (ICD-10) H/O cardiac catheterization ?Z98.890 - Other specified postprocedural states (ICD-10) H/O arthroscopy of shoulder ?Z98.890 - Other specified postprocedural states (ICD-10) H/O arthroscopy of knee ?Z98.890 - Other specified postprocedural states (ICD-10) History of appendectomy ?Z90.49 - Acquired absence of other specified parts of digestive tract (ICD-10) History of total knee arthroplasty ?Z96.659 - Presence of unspecified artificial knee joint (ICD-10) Social History Within the past year, how often did you have a drink containing alcohol: monthly or less Smoking status: Former smoker Non-prescribed substance use: denies use Previous occupational history: retired Highest level of school completed/degree received: high school graduate Little interest or pleasure in doing things: not at all Feeling down, depressed, or hopeless: not at all Exam Narrative Exam Narrative: Nurses notes and vital signs reviewed and patient is not hypoxic. General: Well-appearing and in no apparent distress. Skin: Warm, dry, no pallor noted. No rash. Head: Normocephalic, atraumatic. Neck: Supple, non-tender. Eye: Pupils are equal, round and EOMI. No scleral icterus. Ears, Nose, Mouth, and Throat: TM are clear, no nasal mucosal hypertrophy. Oral mucosa is moist, no posterior oropharynx erythema, uvula is mid-line Cardiovascular: Regular Rate and Rhythm without murmur, gallop or rub. Respiratory: Decreased air entry bilaterally with distant breathing sounds Lungs are clear to auscultation, no wheezing, rales or rhonchi Chest Wall: no tenderness Back: No midline thoracic or lumbar vertebral tenderness. No CVA tenderness Musculoskeletal: normal ROM, no calf or popliteal tenderness, 1+ pitting edema bilaterally g GI: Abdomen is soft, non-distended. Normal bowel sounds. No masses appreciated. No tenderness to palpation. No rebound, guarding, or rigidity noted. Neurological: A&O x4. No cranial nerve dysfunction observed. No truncal ataxia. Moves all extremities. Sensation intact. Psychiatric: Cooperative and interactive. Normal mood and affect. Constitutional Vital Signs, click to edit/add: Last Vital Signs Temp 98.4 F 05/25/24 15:52 Pulse 67 05/25/24 17:31 Resp 16 05/25/24 17:25 BP 148/74 H 05/25/24 17:25 Pulse Ox 95 05/25/24 17:31 O2 Del Method Room Air 05/25/24 17:31 Course Vital Signs Vital signs: Vital Signs Temperature 98.4 F 05/25/24 15:52 Pulse Rate 73 05/25/24 15:52 Respiratory Rate 16 05/25/24 15:52 Blood Pressure 165/75 H 05/25/24 15:52 Pulse Oximetry 95 05/25/24 15:52 Oxygen Delivery Method Room Air 05/25/24 15:52 Temperature 98.4 F 05/25/24 15:52 Pulse Rate 67 05/25/24 17:31 Respiratory Rate 16 05/25/24 17:25 Blood Pressure 148/74 H 05/25/24 17:25 Pulse Oximetry 95 05/25/24 17:31 Oxygen Delivery Method Room Air 05/25/24 17:31 Medical Decision Making Medical Records Medical records narrative: The patient presenting to us with possible pneumonia although she also presented with possible COPD exacerbation She had a bilateral leg edema troponin was negative and BNP was negative The patient chest x-ray shows the above-mentioned results which was not conclusive but with the patient leukocytosis of 13 the patient will be covered for possible pneumonia She was treated in the ER with breathing treatment and Solu-Medrol Discharged home with the doxycycline and Keflex to cover for pneumonia in addition to prednisone for 5 days Tessalon Perles for coughing The patient is to follow up with primary care physician in next 2-3 days or to return to the emergency department should any of the signs or symptoms worsen or new symptoms develop. The patient agrees with the following Diagnosis and Treatment plan and the patient will be discharged home. Lab Data Labs: Lab Results 05/25/24 Range/Units 16:25 WBC 13.3 H (4.0-11.0) 10^3/uL RBC 4.19 L (4.20-5.40) 10^6/uL Hgb 9.6 L (12.0-16.0) g/dL Hct 32.3 L (36.0-48.0) % MCV 77.1 L (81.0-99.0) fL MCH 22.9 L (26.7-34.0) pg MCHC 29.7 L (29.9-35.2) g/dL RDW 18.7 H (11.0-15.0) % Plt Count 346 (150-450) 10^3/uL MPV 9.1 L (9.5-13.5) fL Neut % (Auto) 75.8 H (43.0-75.0) % Lymph % (Auto) 15.7 L (20.5-60.0) % [place] % (Auto) 6.7 (1.7-12.0) % Eos % (Auto) 0.8 L (0.9-7.0) % Baso % (Auto) 0.5 (0.2-2.0) % Neut # (Auto) 10.0 H (1.4-6.5) 10^3/uL Lymph # (Auto) 2.1 (1.2-3.8) 10^3/uL [place] # (Auto) 0.9 H (0.3-0.8) 10^3/uL Eos # (Auto) 0.1 (0.0-0.7) 10^3/uL Baso # (Auto) 0.1 (0.0-0.1) 10^3/uL Abs Immat Gran (auto) 0.07 H (0.00-0.03) 10^3/uL Imm/Tot Granulo (auto) 0.5 (0.0-0.5) % Sodium 134 L (136-145) mmol/L Potassium 3.9 (3.5-5.1) mmol/L Chloride 99 (98-107) mmol/L Carbon Dioxide 28.3 (21.0-32.0) mmol/L Anion Gap 10.6 BUN 15.0 (7.0-18.0) mg/dL Creatinine 0.78 (0.55-1.02) mg/dL Est GFR ( Amer) >60 (>=60) Est GFR (Non-Af Amer) >60 (>=60) BUN/Creatinine Ratio 19.2 Glucose 114 H (74-106) mg/dL Calcium 8.6 (8.5-10.1) mg/dL Total Bilirubin 0.3 (0.2-1.0) mg/dL AST 34 (15-37) U/L ALT 23 (14-59) U/L Alkaline Phosphatase 121 H (46-116) U/L Troponin I High Sens 9.0 (4.0-51.3) pg/mL NT-Pro-B Natriuret Pep 232.0 (<=1800.0) pg/mL Total Protein 8.2 (6.4-8.2) g/dL Albumin 2.7 L (3.4-5.0) g/dL Globulin 5.5 g/dL Albumin/Globulin Ratio 0.5 Discharge Plan Discharge Chief Complaint: Upper Respiratory Infection Clinical Impression: Pneumonia, COPD exacerbation Patient Disposition: Home, Self-Care Time of Disposition Decision: 17:56 Condition: Good Prescriptions / Home Meds: New benzonatate 100 mg capsule 100 mg PO TID PRN (Reason: cough) Qty: 14 0RF doxycycline hyclate 100 mg tablet 100 mg PO BID 7 Days Qty: 14 0RF cephalexin 500 mg capsule 500 mg PO Q8H 7 Days Qty: 21 0RF prednisone 50 mg tablet 50 mg PO DAILY 5 Days Qty: 5 0RF ipratropium-albuterol 0.5 mg-3 mg(2.5 mg base)/3 mL solution for nebulization 3 ml inhalation Q6H PRN (Reason: shortness of breath) Qty: 90 0RF No Action Eliquis 5 mg tablet 5 mg PO BID Hold Instructions: Doctor's Order baclofen 10 mg tablet 10 mg PO TID Qty: 90 0RF hydrocodone-acetaminophen 5-325 mg tablet 1 tab PO BID Qty: 6 0RF furosemide 40 mg tablet 40 mg PO DAILY hydrocodone-acetaminophen 5-325 mg tablet 1 tab PO TID PRN (Reason: pain) Qty: 90 0RF naloxone [Narcan] 4 mg/actuation spray,non-aerosol 4 mg intranasal Q3M PRN (Reason: opioid overdose) Qty: 2 0RF Rx Instructions: spray 1 dose into ONE nostril; alternate nostrils w each dose until help arrives flecainide 100 mg tablet 100 mg PO Q12H spironolactone [Aldactone] 25 mg tablet 25 mg PO DAILY cholecalciferol (vitamin D3) [Vitamin D3] 125 mcg (5,000 unit) tablet 5,000 unit PO DAILY omeprazole 40 mg capsule,delayed release(DR/EC) 40 mg PO DAILY verapamil [Calan SR] 180 mg tablet extended release 180 mg PO Q12H tramadol 50 mg tablet 50 mg PO QPM Print Language: Kiswahili Instructions: COPD (Chronic Obstructive Pulmonary Disease) (DC), Community Acquired Pneumonia (DC) Referrals: Physician,Non-Staff, MD [Primary Care Provider] - 1 week
[2024-05-25] MEDS: DOXYCYCLINE MONOHYDRATE 100 MG CAPSULE PO (18:06)
[2024-05-25 18:10] VITALS: BP 145/89; PULSE 88; O2SAT 97
== END 2024-05-25 18:10 | disposition home or self-care (01) ==
PROVIDERS: Emergency Provider Emergency Medicine
DX: J18.9 Pneumonia, unspecified organism (principal); J44.0 Chronic obstructive pulmonary disease with (acute) lower respiratory infection; J44.1 Chronic obstructive pulmonary disease with (acute) exacerbation; Z87.891 Personal history of nicotine dependence; R06.02 Shortness of breath
CPT/HCPCS: 36415; 71045; 80053; 83880; 84484; 85025; 94640; 96374; 99284; J2919

== ENCOUNTER 2024-05-31 14:34 | Emergency (ER) | payer MEDICARE, SELFPAY ==
[2024-05-31 14:42] VITALS: BP 178/78; PULSE 74; TEMP 36.9; O2SAT 96
--- NOTE | 2024-05-31 14:52 | XR_ITS ---
The [address] [address] Patient Name: MAXIMUS HERRMANN MRN: [id number] date: 1945 Sex: F Assigned Patient Location: ER Current Patient Location: ER Accession/Order Number: [id number] Exam Date: 05/31/2024 15:55 Report Date: 05/31/2024 16:10 At the request of: UTE BUTLER Procedure: XR chest 1V EXAMINATION: XR chest 1V HISTORY: Peripheral edema COMPARISON: 05/25/2024 TECHNIQUE: AP FINDINGS: LUNGS: No significant pulmonary parenchymal abnormalities. VASCULATURE: No increased pulmonary vasculature. PLEURA: No pneumothorax, effusion, or pleural thickening. CARDIAC: No cardiomegaly or cardiac silhouette abnormality. MEDIASTINUM: No visible mass or adenopathy. Left pacemaker BONES: No fracture or visible bone lesion. [Partial arthroplasty OTHER: Negative. XR/XR chest 1V IMPRESSION: No acute cardiopulmonary process Electronically authenticated by: HONG ALSTON Date: 05/31/2024 16:10
--- NOTE | 2024-05-31 14:52 | ECG_ITS ---
The [facility] Test Date: 2024-05-31 Pat Name: MAXIMUS HERRMANN Department: Room: - Gender: Female [employer] Worker: : 1945 Requested By: Order Number: [id number] Reading MD: ALAYNA LINN Measurements Intervals [place] Rate: 75 P: 90 MO: 170 QRS: 26 QRSD: 106 T: 25 QT: 418 QTc: 446 Interpretive Statements 1100 Sinus rhythm 9110 normal ECG Compared to ECG 03/01/2024 15:01:05 No significant changes Electronically Signed On 05-31-2024 20:25:50 EDT by ALAYNA LINN
--- NOTE | 2024-05-31 14:53 | US_ITS ---
The [address] [address] Patient Name: MAXIMUS HERRMANN MRN: [id number] date: 1945 Sex: F Assigned Patient Location: ER Current Patient Location: ER Accession/Order Number: [id number] Exam Date: 05/31/2024 16:06 Report Date: 05/31/2024 17:20 At the request of: UTE BUTLER Procedure: US venous doppler UE LT ULTRASOUND OF THE UPPER EXTREMITY VENOUS LEFT HISTORY: 78-year-old female with left arm swelling for 2 weeks COMPARISON: None. TECHNIQUE: Multiple sonographic images are performed of the extremity venous system with both color Doppler and grayscale Doppler. Doppler spectral analysis and color flow were performed of the extremity. FINDINGS: There is no evidence of thrombus within the visualized veins. There is adequate phasic and spontaneous flow. There is adequate compression. There is adequate augmentation. No evidence of DVT within the visualized veins of the visualized extremity. US/US venous doppler UE LT IMPRESSION: No evidence of DVT within visualized veins. Electronically authenticated by: POORNIMA LEONARD Date: 05/31/2024 17:20
--- NOTE | 2024-05-31 14:53 | ED_ITS ---
HPI HPI - General Adult General Chief complaint: Upper Respiratory Infection Stated complaint: RETAINING FLUID/ SHORTNESS OF BREATH Time Seen by Provider: 05/31/24 14:47 Source: patient and family Mode of arrival: walk-in Limitations: no limitations History of Present Illness HPI narrative: 78-year-old female presents to the emergency department for swelling to her ankles and her entire left arm. She has been having these issues for about 2 weeks but it got worse last night. She does not have any swelling in the right arm at all. She has never had a DVT. She complains of a little bit of shortness of breath, no fever. She states she does have a history of heart failure. Related Data Home Medications ?Medication ?Instructions ?Recorded ?Confirmed cholecalciferol (vitamin D3) 125 5,000 unit PO DAILY 02/16/23 04/16/24 mcg (5,000 unit) tablet (Vitamin D3) flecainide 100 mg tablet 100 mg PO Q12H 02/16/23 04/16/24 omeprazole 40 mg capsule,delayed 40 mg PO DAILY 02/16/23 04/16/24 release spironolactone 25 mg tablet 25 mg PO DAILY 02/16/23 04/16/24 (Aldactone) verapamil 180 mg tablet,extended 180 mg PO Q12H 02/16/23 04/16/24 release (Calan SR) apixaban 5 mg tablet (Eliquis) 5 mg PO BID 05/11/23 04/16/24 furosemide 40 mg tablet 40 mg PO DAILY 03/01/24 04/16/24 tramadol 50 mg tablet 50 mg PO QPM 03/06/24 04/16/24 Previous Rx's ?Medication ?Instructions ?Recorded baclofen 10 mg tablet 10 mg PO TID #90 tabs 02/15/24 hydrocodone 5 mg-acetaminophen 325 1 tab PO BID #6 tabs 02/15/24 mg tablet hydrocodone 5 mg-acetaminophen 325 1 tab PO TID PRN pain #90 tabs 05/17/24 mg tablet naloxone 4 mg/actuation nasal 4 mg intranasal Q3M PRN opioid 05/17/24 spray (Narcan) overdose #2 ea benzonatate 100 mg capsule 100 mg PO TID PRN cough #14 caps 05/25/24 cephalexin 500 mg capsule 500 mg PO Q8H 7 days #21 caps 05/25/24 doxycycline hyclate 100 mg tablet 100 mg PO BID 7 days #14 tabs 05/25/24 ipratropium 0.5 mg-albuterol 3 mg 3 ml inhalation Q6H PRN shortness 05/25/24 (2.5 mg base)/3 mL nebulization of breath #90 mL soln prednisone 50 mg tablet 50 mg PO DAILY 5 days #5 tabs 05/25/24 Allergies Allergy/AdvReac Type Severity Reaction Status Date / Time No Known Drug Allergies Allergy Verified 05/31/24 14:46 Opioid HPI Opioid Management Most Recent Opioid Data: Last Pain Scale 7 04/16/24 08:37 Last ED Pain Assessment 05/25/24 16:03 Review of Systems ROS Narrative A ten point review of systems is negative except as noted above. [facility] Medical History (Updated 05/31/24 @ 17:55 by Troy Reyes MD) Arthritis ?M19.90 - Unspecified osteoarthritis, unspecified site (ICD-10) Chronic obstructive pulmonary disease ?J44.9 - Chronic obstructive pulmonary disease, unspecified (ICD-10) Peptic ulcer ?K27.9 - Peptic ulcer, site unspecified, unspecified as acute or chronic, without hemorrhage or perforation (ICD-10) Dyspnea on exertion ?R06.09 - Other forms of dyspnea (ICD-10) Anemia ?D64.9 - Anemia, unspecified (ICD-10) Hypertension ?I10 - Essential (primary) hypertension (ICD-10) Extremity edema ?R60.0 - Localized edema (ICD-10) Congestive heart failure ?I50.9 - Heart failure, unspecified (ICD-10) Atrial fibrillation ?I48.91 - Unspecified atrial fibrillation (ICD-10) Shoulder pain ?M25.519 - Pain in unspecified shoulder (ICD-10) Fatty liver ?K76.0 - Fatty (change of) liver, not elsewhere classified (ICD-10) History of shingles ?Z86.19 - Personal history of other infectious and parasitic diseases (ICD- 10) Osteoarthritis ?M19.90 - Unspecified osteoarthritis, unspecified site (ICD-10) Pacemaker ?Z95.0 - Presence of cardiac pacemaker (ICD-10) Hiatal hernia ?K44.9 - Diaphragmatic hernia without obstruction or gangrene (ICD-10) Low back pain ?M54.50 - Low back pain, unspecified (ICD-10) Irregular heart beat ?I49.9 - Cardiac arrhythmia, unspecified (ICD-10) Surgical History History of shoulder replacement ?Z96.619 - Presence of unspecified artificial shoulder joint (ICD-10) S/P rotator cuff repair ?Z98.890 - Other specified postprocedural states (ICD-10) History of colonoscopy ?Z98.890 - Other specified postprocedural states (ICD-10) S/P YANELI-BSO ?Z90.710 - Acquired absence of both cervix and uterus (ICD-10) ?Z90.722 - Acquired absence of ovaries, bilateral (ICD-10) ?Z90.79 - Acquired absence of other genital organ(s) (ICD-10) H/O cardiac catheterization ?Z98.890 - Other specified postprocedural states (ICD-10) H/O arthroscopy of shoulder ?Z98.890 - Other specified postprocedural states (ICD-10) H/O arthroscopy of knee ?Z98.890 - Other specified postprocedural states (ICD-10) History of appendectomy ?Z90.49 - Acquired absence of other specified parts of digestive tract (ICD- 10) History of total knee arthroplasty ?Z96.659 - Presence of unspecified artificial knee joint (ICD-10) Social History Within the past year, how often did you have a drink containing alcohol: monthly or less Smoking status: Former smoker Non-prescribed substance use: denies use Previous occupational history: retired Highest level of school completed/degree received: high school graduate Little interest or pleasure in doing things: not at all Feeling down, depressed, or hopeless: not at all Exam Narrative Exam Narrative: Nurses note and vital signs reviewed and patient is not hypoxic. General: The patient appears well and in no apparent distress. Skin: Warm, dry, no pallor noted. There is no rash noted. Head: Normocephalic, atraumatic Eye: Normal conjunctiva, no drainage Ears, Nose, Mouth, and Throat: oral mucosa is moist. Nares patent. Cardiovascular: Regular Rate and Rhythm Respiratory: Patient is in no distress, no accessory muscle use, lungs are clear to auscultation, no wheezing, rales or rhonchi Back: non-tender GI: Soft and nontender Musculoskeletal: She has 1+ edema in each ankle. The entire left arm is swollen particularly in the hands. Radial pulse 2+ and capillary refill is brisk. No swelling in the right arm at all. Neurological: A&O, normal speech Psychiatric: Cooperative Constitutional Vital Signs, click to edit/add: Last Vital Signs Temp 98.5 F 05/31/24 14:42 Pulse 74 05/31/24 14:42 Resp 20 05/31/24 14:42 BP 178/78 H 05/31/24 14:42 Pulse Ox 96 05/31/24 14:42 O2 Del Method Room Air 05/31/24 14:42 Course Vital Signs Vital signs: Vital Signs Temperature 98.5 F 05/31/24 14:42 Pulse Rate 74 05/31/24 14:42 Respiratory Rate 20 05/31/24 14:42 Blood Pressure 178/78 H 05/31/24 14:42 Pulse Oximetry 96 05/31/24 14:42 Oxygen Delivery Method Room Air 05/31/24 14:42 Temperature 98.5 F 05/31/24 14:42 Pulse Rate 74 05/31/24 14:42 Respiratory Rate 05/31/24 14:42 Blood Pressure 178/78 H 05/31/24 14:42 Pulse Oximetry 96 05/31/24 14:42 Oxygen Delivery Method Room Air 05/31/24 14:42 Medical Decision Making MDM Narrative Medical decision making narrative: Ultrasound was performed of the left arm because of unilateral swelling and is negative for DVT. 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 No evidence of heart failure. Renal function is essentially normal. Treatment diagnosis and follow- up were discussed with the patient. Differential Diagnosis Differential Diagnosis: Arm DVT, heart failure, acute kidney injury, peripheral edema Lab Data Lab results reviewed: Yes I reviewed the patient's lab results Labs: Lab Results 05/31/24 Range/Units 15:38 WBC 13.7 H (4.0-11.0) 10^3/uL RBC 3.93 L (4.20-5.40) 10^6/uL Hgb 9.1 L (12.0-16.0) g/dL Hct 29.8 L (36.0-48.0) % MCV 75.8 L (81.0-99.0) fL MCH 23.2 L (26.7-34.0) pg MCHC 30.5 (29.9-35.2) g/dL RDW 18.7 H (11.0-15.0) % Plt Count 338 (150-450) 10^3/uL MPV 8.1 L (9.5-13.5) fL Neut % (Auto) 73.0 (43.0-75.0) % Lymph % (Auto) 19.2 L (20.5-60.0) % Fountain % (Auto) 5.6 (1.7-12.0) % Eos % (Auto) 1.4 (0.9-7.0) % Baso % (Auto) 0.2 (0.2-2.0) % Neut # (Auto) 10.0 H (1.4-6.5) 10^3/uL Lymph # (Auto) 2.6 (1.2-3.8) 10^3/uL Fountain # (Auto) 0.8 (0.3-0.8) 10^3/uL Eos # (Auto) 0.2 (0.0-0.7) 10^3/uL Baso # (Auto) 0.0 (0.0-0.1) 10^3/uL Abs Immat Gran (auto) 0.08 H (0.00-0.03) 10^3/uL Imm/Tot Granulo (auto) 0.6 H (0.0-0.5) % Sodium 138 (136-145) mmol/L Potassium 3.6 (3.5-5.1) mmol/L Chloride 104 (98-107) mmol/L Carbon Dioxide 30.2 (21.0-32.0) mmol/L Anion Gap 7.4 BUN 21.0 H (7.0-18.0) mg/dL Creatinine 0.82 (0.55-1.02) mg/dL Est GFR ( Amer) >60 (>=60) Est GFR (Non-Af Amer) >60 (>=60) BUN/Creatinine Ratio 25.6 Glucose 101 (74-106) mg/dL Calcium 8.5 (8.5-10.1) mg/dL Troponin I High Sens 8.4 (4.0-51.3) pg/mL NT-Pro-B Natriuret Pep 105.0 (<=1800.0) pg/mL Imaging Data Chest x-ray: Radiologist's impression: ITS Impressions Chest X-Ray 05/31/24 14:52 IMPRESSION: No acute cardiopulmonary process Electronically authenticated by: HONG ALSTON Date: 05/31/2024 16:10 Venous Doppler Study 05/31/24 14:53 IMPRESSION: No evidence of DVT within visualized veins. Electronically authenticated by: POORNIMA LEONARD Date: 05/31/2024 17:20 ECG Data Attestation: I personally reviewed and interpreted this ECG as follows: (EKG on my interpretation shows sinus rhythm with a rate of 75 and no acute change.) Discharge Plan Discharge Chief Complaint: Upper Respiratory Infection Clinical Impression: Edema, peripheral Patient Disposition: Home, Self-Care Time of Disposition Decision: 17:57 Condition: Good Mode of Transportation: Private Vehicle Prescriptions / Home Meds: No Action Eliquis 5 mg tablet 5 mg PO BID Hold Instructions: Doctor's Order baclofen 10 mg tablet 10 mg PO TID Qty: 90 0RF hydrocodone-acetaminophen 5-325 mg tablet 1 tab PO BID Qty: 6 0RF furosemide 40 mg tablet 40 mg PO DAILY hydrocodone-acetaminophen 5-325 mg tablet 1 tab PO TID PRN (Reason: pain) Qty: 90 0RF naloxone [Narcan] 4 mg/actuation spray,non-aerosol 4 mg intranasal Q3M PRN (Reason: opioid overdose) Qty: 2 0RF Rx Instructions: spray 1 dose into ONE nostril; alternate nostrils w each dose until help arrives flecainide 100 mg tablet 100 mg PO Q12H spironolactone [Aldactone] 25 mg tablet 25 mg PO DAILY cholecalciferol (vitamin D3) [Vitamin D3] 125 mcg (5,000 unit) tablet 5,000 unit PO DAILY omeprazole 40 mg capsule,delayed release(DR/EC) 40 mg PO DAILY verapamil [Calan SR] 180 mg tablet extended release 180 mg PO Q12H tramadol 50 mg tablet 50 mg PO QPM benzonatate 100 mg capsule 100 mg PO TID PRN (Reason: cough) Qty: 14 0RF doxycycline hyclate 100 mg tablet 100 mg PO BID 7 Days Qty: 14 0RF cephalexin 500 mg capsule 500 mg PO Q8H 7 Days Qty: 21 0RF prednisone 50 mg tablet 50 mg PO DAILY 5 Days Qty: 5 0RF ipratropium-albuterol 0.5 mg-3 mg(2.5 mg base)/3 mL solution for nebulization 3 ml inhalation Q6H PRN (Reason: shortness of breath) Qty: 90 0RF Print Language: Kosovan Instructions: Leg Edema (ED) Additional Instructions: Elevate your legs. Follow-up with your cementer machine joiner for diuretic management. Referrals: MONSTER MALLORY [Primary Care Provider] - 1 week
--- OUTSIDE RECORDS SUMMARY | 2024-05-31 14:53 | XMS_ITS | CCD ---
Author Organization [facility] CliniSywy Care Team Providers Care Wrapping Machine Tender Name Role Phone ZANE MCGUIRE Admitting Unavailable YANCY HENNESSY Referring Unavailable LUISANA JOHNSON Primary Care Unavailable ZANE MCGUIRE Attending Unavailable YANCY HENNESSY Surgeon Unavailable [facility] Procedure Practitioner Unavailab Hong Adler Unavailable JOHNSON [...] Unavailable ZIEBAMAURY, DR PAULA Bishop Consulting Unavailable JOHNSON ., DR LUISANA Jarquin [...] Admitting Unavailable RIVER ., KAYLEY Attending Unavailable NAZLINI, DR HONG Morgan Consulting Unavailable JOHNSON ., [...] Unavailable THANG Clement Attending Provider MD Cira [facility] Primary Care Provider THANG Clement Attending Provider Cira CU[facility] Provider YANCY HENNESSY Referring Unavailable YANCY HENNESSY Attending Unavailable YANCY HENNESSY Referring Unavailable NICANOR CANNON Attending Unavailable Ortega ALEXANDER Attending Unavailable SERGE DENISIKH Referring Unavailable Ortega ALEXANDER Attending Unavailable MD Cira [facility] Care Provider DO James Jones Attending Provider [phone] Katherine CUBA, Starlarius Sainz Attending Unavailable Giedrajuliette CUBA, Andrius Vrenee Attending Unavailable Githeresaraitis , Andrius Vrenee Attending Unavailable Giedraitis , Andrius Vreene Attending Unavailable YOLY Cruz Attending Provider [phone] Cira [facility] Unavailable Kayley Reeder Admitting Unavailable Kayley Reeder Attending Unavailable Serge Denisikh Primary Care Unavailable James Jones Admitting Unavailable James Jones Attending Unavailable Dominiqueohvaleria [facility] Care Unavailable James Jones Admitting Unavailable James Jones Attending Unavailable Fafrancy, Sahu Primary Care Unavailable Pedro Pablo Cruz Admitting Unavailable Pedro Pablo Cruz Attending Unavailable Fafrancy, Primary Care Unavailable Urbano, Claire Britton Admitting Unavailable Urbano, Claier E Attending Unavailable Fawwad, Sahu Primary Care [...] Unavaila iker Johnson MD, Luisana Gaspar Primary [facility] Provider [phone] Pedro Pablo Cruz MD Unavailable LUISANA JOHNSON Primary Care Unavailable BOO BUCHANAN Attending Unavailable PEDRO PABLO CRUZ Referring Unavailable LUISANA JOHNSON [facility] Unavailable BOO BUCHANAN Referring Unavailable Allergies Allergy Classification Reported Allergen(s) Allergy Type Date of Onset Reaction(s) Facility NSAIDs (1 source) meloxicam; Translations: [Mobic] Drug Allergy [facility] Repository Unclassified (1 source) No Known Medication Allergies; Translations: [No Known Medication Allergies] Propensity to adverse reactions (disorder) [facility] Repository (1 source) novacaine; Translations: [novacaine] Propensity to adverse reactions (disorder) 2 [facility] Repository (2 sources) NSAIDs Propensity to adverse reactions HEART ISSUES [employer] Other (7 sources) Adhesive agent; Translations: [adhesive] Allergy to substance 4 [facility] (4 sources) NSAIDS (Non-Steroidal Anti-Inflamma; Translations: [NSAIDS (Non-Steroidal Anti-Inflamma] Allergy to substance 4 HEART [facility] Medications Current Medications Medication Drug [...] capsule 02/15/2023 Active take 1 capsule by [facility] every twenty-four hours Omeprazole 40 MG 1 [...] 02/14/2023 02/14/2024 Active take 1 capsule by [facility] every twenty-four hours Verapamil HCl ER 360 [...] disease (3 sources) Atherosclerotic heart disease of [place] coronary artery without angina pectoris; Translations: [Coronary [...] Onset: 3 Episodic Other aftercare (1 source) 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 Normal [facility] XR SHLDR 4V AP/HECTOR/LAT/OUTLE T LTon 05-22-2024 [...] other significant abnormality. IMPRESSION: EXPECTED POSTOPERATIVE APPEARANCE [employer] Repairer: STEVE Transcribe Date/Time: May 22 2024 2:42P Dictated by : VILMA ABREU MD This examination was interpreted and the report reviewed and electronically signed by: VILMA ABREU MD on May 22 2024 2:42PM EST [id number] Normal [facility] XR Shoulder - left 4 Viewson 05-22-2024 IMPRESSION: EXPECTED POSTOPERATIVE APPEARANCE [employer] Repairer: STEVE Transcribe Date/Time: May 22 2024 2:42P [...] other significant abnormality. DIVISION OF RADIOLOGY Provider, [facility] [place] - 05/22/2024 * * *Final Report* * [...] significant abnormality. IMPRESSION IMPRESSION: EXPECTED POSTOPERATIVE APPEARANCE [employer] Repairer: PSCHermelinda Transcribe Date/Time: May 22 2024 2:42P Dictated by : VILMA ABREU MD This examination was interpreted and the report reviewed and electronically signed by: VILMA ABREU MD on May 22 2024 2:42PM EST [facility] Radiology Study observation (narrative) [facility] XR Shoulder - left 4 ViewsOr dered By: Ccf Provider on 05-22-2024 [facility] NM bone 3 phaseon 05-02-2024 NM bone [address] [facility] Main [place] [address] [place] [address] Nuclear Medicine Report Signed Patient: Breann Starks MR#: [id number] 171 : 1945 Acct:[id number] Age/Sex: 78 / F ADM Date: 05/02/24 Loc: [place] Room: Type: [facility] Attending Dr: Pedro Pablo Cruz PA-C Copies to: YOLY Sanon Jeffrey S DO Ordering Provider: Pedro Pablo Cruz PA-C Date of Service: 05/02/24 [place] bone 3 phase: M25.512, Z96.612 Nuclear medicine [...] be degenerative. Plain film correlation. No hyperemia. [place] bone 3 phase IMPRESSION: Increased uptake of the left the glenoid. There may be concern for loosening. Correlate with plain film imaging. Increased uptake of the left acromion. May represent degenerative change. Fracture may be present in this region. Correlate with plain film imaging. Impression dictated by: Etienne Rhodes M.D.05/02/2024 2:44 PM Dictation Location: [place] [address] Transcribed By: [facility] 05/02/24 1444 Dictated By: Etienne Rhodes DO 05/02/24 1440 Signed By: 05/02/24 1444 Normal [facility] Lab Reportson 03-07-2024 Lab Reports [id number] #1.00TIFF Normal [facility] 36on 03-06-2024 36 Echo from 03/05/2024 [...] to her pharmacy. BMP order faxed to [facility]. Breann verbalized understanding. Normal [facility] Consent for Procedure/Surger yon 03-05-2024 Consent for Procedure/Surgery [id number] #1.00TIFF [facility] Ambulatory Visit Summaryon 0 03-02-2024 Ambulatory Visit Summary BREANN STARKS :1945 Visit Date:03/02/2024 Ambulatory Visit Instructions Your Care Team Attending Physician - CATHERINE CUBA, Ortega Bishop Primary Care Physician - Cate JUÁREZ, Barbara Lemus Referring Physician - CIRA CUBA, [facility] This Is Your Medications List Contact prescribing [...] choosing us for your care. Normal [facility] ED Note-Physicianon 03-02-20 24 ED Note-Physician [id number]# 1.00TIFF Normal [facility] Insurance Correspondenceon 0 03-02-2024 Insurance Correspondence [id number] 7#1.00TIFF Normal [facility] Lab Reportson 03-02-2024 Lab Reports [id number] #1.00TIFF [facility] 36on 01-25-2024 36 Patient called stating ever since her device was adjusted last month she's had this weird feeling in her throat. I called Sony Asif from [employer] and he told me this feeling she's having should not be from her device. Patient informed. I suggested she see PCP for this. She verbalized understanding. Normal [facility] Office Visiton 01-17-2024 Follow-up visit [id number] Breann Starks 1945 F Date Provider Department Center 01/17/2024 NICANOR REGAN Family History Adopted: Yes Family history unknown: Yes Family Status - Relation Status Age at Mother Father Level of Service:39252 [facility] OFFICE/OUTPATIENT ESTABLISHED MOD MDM 30 MIN Reason for Visit and Comments: Atrial Fibrillation [80] Normal [facility] XR lumbar spine 6V w bending on 11-16-2023 XR lumbar spine 6V w bending [facility] [place] [address] XRay Report Signed Patient: Breann Starks MR#: [id number] 171 : 1945 Acct:[id number] Age/Sex: 77 / F ADM Date: 11/16/23 Loc: XD Room: Type: [facility] Attending Dr: Kayley PASCALC Copies to: THANG [...] Benton Jr., D.OMeena11/16/2023 4:37 PM Dictation Location: [place] [address] Transcribed By: [facility] 11/16/23 1637 Dictated By: Francisco J Benton Jr, DO 11/16/23 1636 Signed By: 11/16/23 1637 Normal [facility] MR lumbar spine wo [place] MR lumbar spine wo con [facility] [place] [address] XRay Report Signed Patient: Breann Starks MR#: [id number] 171 : 1945 Acct:[id number] Age/Sex: 77 / F ADM Date: 10/11/23 Loc: Room: Type: [facility] Attending Dr: Claire DESIR Copies to: THANG Porter Ordering Provider: THANG Porter Date of Service: 10/11/23 MR/MR lumbar spine wo con: LUMBAR RADICULPATHY ([id number]) XR/XR pre/post mri xray: LUMBAR RADICULPATHY CLINICAL [...] ALSO ASSOCIATED SPONDYLOLISTHESIS. Impression dictated by: Eleanor Recee M.D.10/11/2023 4:10 PM Dictation Location: [place] [address] Transcribed By: [facility] 10/11/23 1610 Dictated By: Eleanor Reece MD 10/11/23 1133 Signed By: 10/11/23 1610 Normal [facility] Office Visiton 07-05-2023 Follow-up visit [id number] Breann Starks Jonah 1945 F Date Provider Department Center 07/05/2023 YANCY IVERSON [facility] Family History Adopted: Yes Family history unknown: Yes Family Status - Relation Status Age at Mother Father Level of Service:73411 [facility] OFFICE/OUTPATIENT ESTABLISHED LOW MDM 20-29 MIN Normal [facility] XR LSPINE W_OBLS AND FLEX_EX [...] by: PAULA BROWN Date: 2023-01-31 11:34 Normal [facility] LIPID PROFILEon 12-16-2022 CHOL-HDL RATIO NORM SEE BELOW Normal [facility] Comment on above: Result Comment: 3.3 - 4.4 LOW RISK 4.4 - 7.1 AVERAGE RISK 7.1 - 11.0 MODERATE RISK >11.0 HIGH RISK Performed By: #### L IPID ####[facility] Ur[address]jfv[address] [place] [id number]. Erasmo Smith Cholesterol [Mass/Vol] 105 mg/dL Normal <=200 Th [facility] Comment on above: Performed By: #### L IPID ####[facility] Kfmfqgjvmw5241 [place] [phone]. Erasmo Smith Cholesterol in HDL [Mass/Vol] 48 mg/dL Normal 40-60 [facility] Comment on above: Performed By: #### L IPID ####[facility] Endcbmihqy1183 [place] [phone]. Erasmo Smith Cholesterol in LDL [Mass/Vol] 48.2 mg/dL Normal [facility] Comment on above: Performed By: #### L IPID ####[facility] Jijuimeedk[address] [place] [phone]. Erasmo Smith Cholesterol.total/Chol esterol in HDL [Mass ratio] 2.2 {ratio} Normal [facility] Comment on above: Performed By: #### L IPID ####[facility] Ojf[address]rc[address] [place] [phone]. Erasmo Smith HDL NORMAL > or = 60 mg/dl - LOW CARDIOVASCULAR RISK <40 mg/dl - HIGH CARDIOVASCULAR RISK Normal [facility] Comment on above: Performed By: #### L IPID ####[facility] Opmaxlzyqr6216 [place] [phone]. Erasmo Smith LDL CALC NORMAL SEE BELOW Normal [facility] Comment on above: Result Comment: <100 mg/dl OPTIMAL 100 - 129 mg/dl NEAR OR ABOVE OPTIMAL 130 - 159 mg/dl BORDERLINE HIGH 160 - 189 mg/dl HIGH >190 mg/dl VERY HIGH Performed By: #### L IPID ####[facility] Hausvieibg37[address] [place] [phone]. Erasmo Smith Triglyceride [Mass/Vol] 44 mg/dL Normal <=150 [facility] Comment on above: Performed By: #### L IPID ####[facility] Z[address]og[address]orss[address] [place] [address]Dr. Erasmo Smith VLDL CALC 8.8 mg/dL Normal [facility] Comment on above: Performed By: #### L IPID ####[facility] [address] [place], [place] [address]Dr. Erasmo Smith CULTURE BLOODon 12-04-2022 Microscopic examination [...] Trimethoprim/Sulfame thoxazole <=20 S F Normal The [facility] Comment on above: Performed By: #### B LDCX1 ####[facility] [address] [place], [place] [address]Dr. Erasmo Smith BNPon 12-03-2022 Natriuretic peptide B (Bld) [Mass/Vol] 413.0 pg/mL Normal <=1,800.0 [facility] Comment on above: Performed By: #### B POSTING SPECIALIST #### [facility] [address] [place] [address] [address] Erasmo Smith CBC AUTO DIFFon 12-03-2022 BASO # 0.0 103/ul Normal 0.0-0.1 [facility] Comment on above: Performed By: #### C BC ####[facility] [address] [place] [address]DrMeena Smith Basophils/100 WBC (Bld) 0.2 % Normal 0.2-2.0 [facility] Comment on above: Performed By: #### C BC ####[facility] Way[address]ftq[address] [place] [address]Dr. Erasmo Smith EO # 0.4 103/ul Normal 0.0-0.7 [facility] Comment on above: Performed By: #### C BC ####[facility] [address] [place], [place] [address]Dr. Erasmo Smith Eosinophils/100 WBC (Bld) 2.1 % Normal 0.9-7.0 [facility] Comment on above: Performed By: #### C BC ####[facility] Sak[address]xgsx[address] [place], [place] [address]Dr. Erasmo Smith Erythrocyte distribution width (RBC) [Ratio] 17.2 % Critically high 11.0-15.0 [facility] Comment on above: Performed By: #### C BC ####[facility] [address] [place], [place] [address]DrMeena Smith Hematocrit (Bld) [Volume fraction] 29.2 % Critically low 36.0-48.0 [facility] Comment on above: Performed By: #### C BC ####[facility] [address] [place], [place] [address]DrMeena Smith Hemoglobin (Bld) [Mass/Vol] 9.5 g/dL Critically low 12.0-16.0 The [facility] Comment on above: Performed By: #### C BC ####[facility] [address] [place] [address]Dr. Erasmo Smith IG # 0.13 10e3/ul Critically high 0.00-0.03 The [facility] Comment on above: Performed By: #### C BC ####[facility] Pdggdhhjlf[address] [place] [address]Dr. Erasmo Smith IG % 0.8 % Critically high 0.0-0.5 The [facility] Comment on above: Performed By: #### C BC ####[facility] [address]is[address] [place] [address]Dr. Erasmo Luis LYMPH # 1.8 103/ul Normal 1.2-3.8 [facility] Comment on above: Performed By: #### C BC ####[facility] [address] [place], [place] [address]Dr. Erasmo Luis Lymphocytes/100 WBC (Bld) 10.3 % Critically low 20.5-60.0 The [facility] Comment on above: Performed By: #### C BC ####[facility] Sgcbetvx[address] [place], [place] [address]Dr. Erasmo Smith MANUAL DIFF REQ NO Normal [facility] Comment on above: Performed By: #### C BC ####[facility] [address] [place], [place] [address]Dr. Erasmo Smith MCH (RBC) [Entitic mass] 25.7 pg Critically low 26.7-34.0 [facility] Comment on above: Performed By: #### C BC ####[facility] Nlxhmaimrs[address] [place], [place] [address]Dr. Erasmo Smith MCHC (RBC) [Mass/Vol] 32.5 g/dL Normal 29.9-35.2 [facility] Comment on above: Performed By: #### C BC ####[facility] K[address] [place], [place] [address]Dr. Erasmo Smith MCV (RBC) [Entitic vol] 79.1 fL Critically low 81.0-99.0 The [facility] Comment on above: Performed By: #### C BC ####[facility] [address]fos[address] [place] [id number]. Erasmo Smith MONO # 1.5 103/ul Critically high 0.3-0.8 The [facility] Comment on above: Performed By: #### C BC ####[facility] Ewklz[address]zcs[address] [place] [id number]. Erasmo Smith Monocytes/100 WBC (Bld) 8.7 % Normal 1.7-12.0 The [facility] Comment on above: Performed By: #### C BC ####[facility] Umgvvnjkjy[address] [place] [id number]. Erasmo Smith NEUT # 13.4 103/ul Critically high 1.4-6.[address] [facility] Comment on above: Performed By: #### C BC ####[facility] Hetoescevl[address] [place] [address]Dr. Erasmo Smith Neutrophils/100 WBC (Bld) 77.9 % Critically high 43.0-75.0 [facility] Comment on above: Performed By: #### C BC ####[facility] [address] [place] [address]Dr. Erasmo Smith Platelet mean volume (Bld) [Entitic vol] 9.3 fL Critically low 9.5-13.5 The [facility] Comment on above: Performed By: #### C BC ####[facility] Qql[address]xbr[address] [place] [address]Dr. Erasmo Smith PLT 205 103/ul Normal 150-450 [facility] Comment on above: Performed By: #### C BC ####[facility] Y[address] [place] [address]Dr. Erasmo Smith RBC 3.69 106/ul Critically low 4.20-5.40 The [facility] Comment on above: Performed By: #### C BC ####[facility] [address] [place], [place] [address]Dr. Erasmo Smith WBC 17.2 103/ul Critically high 4.0-11.[address] [facility] Comment on above: Performed By: #### C BC ####[facility] [address] [place], [place] [address]Dr. Erasmo Smith MAGNESIUMon 12-03-2022 Magnesium [Mass/Vol] 1.9 mg/dL Normal 1.8-2.4 [facility] Comment on above: Performed By: #### B POSTING SPECIALIST #### [facility] [address] [place] [address] Dr. Erasmo Smith PROF 14(COMP METB)on 023 Albumin [Mass/Vol] 2.6 g/dL Critically low 3.4-5.0 Th e [facility] Comment on above: Performed By: #### B POSTING SPECIALIST #### [facility] [address] [place] [address] Dr. Erasmo Smith Albumin/Globulin [Mass ratio] 0.6 {ratio} Normal [facility] Comment on above: Performed By: #### B POSTING SPECIALIST #### [facility] [address] [place] [address] Dr. Erasmo Smith ALP [Catalytic activity/Vol] 123 U/L Critically high 46-116 [facility] Comment on above: Performed By: #### B POSTING SPECIALIST #### [facility] [address] [place] [address] Dr. Erasmo Smith ALT [Catalytic activity/Vol] 28 U/L Normal 14-59 [facility] Comment on above: Performed By: #### B POSTING SPECIALIST #### [facility] [address] [place] [address] Dr. Erasmo Smith Anion gap [Moles/Vol] 9.4 mmol/L Normal [facility] Comment on above: Performed By: #### B POSTING SPECIALIST #### [facility] [address] [place] [address] Dr. Erasmo Smith AST [Catalytic activity/Vol] 21 U/L Normal 15-37 [facility] Comment on above: Performed By: #### B POSTING SPECIALIST #### [facility] [address] [place] [address] Dr. Erasmo Smith Bilirubin [Mass/Vol] 0.3 mg/dL Normal 0.2-1.0 [facility] Comment on above: Performed By: #### B POSTING SPECIALIST #### [facility] [address] [place], [place] [address] Dr. Erasmo Smith Calcium [Mass/Vol] 8.3 mg/dL Critically low 8.5-10.1 Th [facility] Comment on above: Performed By: #### B POSTING SPECIALIST #### [facility] [address] [place] [address] Dr. Erasmo Smith Chloride [Moles/Vol] 105 mmol/L Normal 98-107 [facility] Comment on above: Performed By: #### B POSTING SPECIALIST #### [facility] [address] [place] [address] Dr. Erasmo Smith CO2 [Moles/Vol] 27.1 mmol/L Normal 21.0-32.0 [facility] Comment on above: Performed By: #### B POSTING SPECIALIST #### [facility] [address] [place] [address] Dr. Erasmo Smith Creatinine [Mass/Vol] 0.55 mg/dL Normal 0.55-1.02 [facility] Comment on above: Performed By: #### B POSTING SPECIALIST #### [facility] [address] [place] [address] Dr. Erasmo Smith EGFR-AF ETHIOPIAN >60 Normal >=60 [facility] Comment on above: Performed By: #### B POSTING SPECIALIST #### [facility] [address] [place] [address] Dr. Erasmo Smith EGFR-NON AF ETHIOPIAN >60 Normal >=60 [facility] Comment on above: Performed By: #### B POSTING SPECIALIST #### [facility] [address] [place] [address] Dr. Erasmo Smith Globulin (S) [Mass/Vol] 4.0 g/dL Normal [facility] Comment on above: Performed By: #### B POSTING SPECIALIST #### [facility] [address] [place] [address] Dr. Erasmo Smith Glucose [Mass/Vol] 132 mg/dL Critically high 74-106 [facility] Comment on above: Performed By: #### B POSTING SPECIALIST #### [facility] [address] [place] [address] Dr. Erasmo Smith Potassium [Moles/Vol] 3.5 mmol/L Normal 3.5-5.1 [facility] Comment on above: Performed By: #### B POSTING SPECIALIST #### [facility] [address] [place] [address] Dr. Erasmo Smith Protein [Mass/Vol] 6.6 g/dL Normal 6.4-8.2 [facility] Comment on above: Performed By: #### B POSTING SPECIALIST #### [facility] [address] [place] [address] Dr. Erasmo Smith Sodium [Moles/Vol] 138 mmol/L Normal 136-145 [facility] Comment on above: Performed By: #### B POSTING SPECIALIST #### [facility] [address] [place] [address] Dr. Erasmo Smith Urea nitrogen [Mass/Vol] 24.0 mg/dL Critically high 7.0-18.0 [facility] Comment on above: Performed By: #### B POSTING SPECIALIST #### [facility] [address] [place] [address] Dr. Erasmo Smith Urea nitrogen/Creatinine [Mass ratio] 43.6 mg/mg Normal [facility] Comment on above: Performed By: #### B POSTING SPECIALIST #### [facility] [address] [place] [address] Dr. Erasmo Smith PROTIMEon 12-03-2022 INR Coag (PPP) [Relative time] 4.41 {INR} Critically high [facility] Comment on above: Performed By: #### C MREP #### [facility] [address] [place] [address] Dr. Erasmo Smith INR GUIDELINES SEE BELOW Normal The [facility] Comment on above: Result Comment: ABNER RED INR: 2.0 - 3.0 CONDITIONS NOT LISTED BELOW 2.5 - 3.5 FOR PROSTHETIC HEART VALVE REPLACEMENT 2.5 - 3.5 RECURRENT THROMBOSIS Performed By: #### C MREP #### [facility] [address] [place] [address] Dr. Erasmo Smith PT Coag (PPP) [Time] 43.0 s Critically high 9.0-11.6 [facility] Comment on above: Performed By: #### C MREP #### [facility] [address] [address] [address] Erasmo Smith BLOOD CULTURE ID PANELon A. baumannii Not detected Normal NOT DETECTED The [facility] Comment on above: Performed By: #### B CID2 ####[facility] [address] [id number]. Yiean Smith Bacteriodes fragilis Not detected Normal NOT DETECTED The [facility] Comment on above: Performed By: #### B CID2 ####[facility] [address] [address]Dr. Yiean Luis BCID CONTROLS PASSED Normal The [facility] Comment on above: Performed By: #### B CID2 ####[facility] [address] [address]Dr. Erasmo Smith BCIDBTHD BLOOD CULTURE BOTTLE INFORMATION Normal The [facility] Comment on above: Performed By: #### B CID2 ####[facility] [address] [address]Dr. Erasmo Luis BCIDHD1 ANTIMICROBIAL RESISTANCE GENES Normal The [facility] Comment on above: Performed By: #### B CID2 ####[facility] [address]uht[address] [address]Dr. Erasmo Luis BCIDHD2 SEE BELOW Normal The [facility] Comment on above: Result Comment: Note : Antimicrobial resitance can occur via multiple mechanisms. A Not Detected result for the [employer] antomicrobial resistance gene assays does not indicate antimicrobial susceptibility. Subculturing is required for species identification and susceptibility testing of isolates. Performed By: #### B CID2 ####[facility] [address] [id number]. Erasmo Smiht BCIDHD3 Positive Normal The [facility] Comment on above: Performed By: #### B CID2 ####[facility] [address] [address]Dr. Erasmo Smith BCIDHD4 Negative Normal The [facility] Comment on above: Performed By: #### B CID2 ####[facility] [address] [address]Dr. Erasmo Smith BCIDHD5 YEAST Normal The [facility] Comment on above: Performed By: #### B CID2 ####[facility] [address] [address]Dr. Erasmo Smith Bottle Set: Set 1 Normal The [facility] Comment on above: Performed By: #### B CID2 ####[facility] [address]ytfert[address] [address]Dr. Erasmo Smith Bottle: Anaerobic Normal The [facility] Comment on above: Performed By: #### B CID2 ####[facility] [address] [address]Dr. Yiean Smith C. neoformans/gattii Not detected Normal NOT DETECTED The [facility] Comment on above: Performed By: #### B CID2 ####[facility] Q[address]rs[address] [place], [place] [address]Dr. Yiean Smith Naye albicans Not detected Normal NOT DETECTED The [facility] Comment on above: Performed By: #### B CID2 ####[facility] Ffpomcflpq[address] [place], [place] [address]Dr. Yiean Smith Naye auris Not detected Normal NOT DETECTED The [facility] Comment on above: Performed By: #### B CID2 ####[facility] Bfuycmglfa[address] [place], [place] [address]Dr. Yiean Smith Naye glabrata Not detected Normal NOT DETECTED The [facility] Comment on above: Performed By: #### B CID2 ####[facility] [address]um[address] [address]Dr. Yiean Smith Naye Krusei Not detected Normal NOT DETECTED The [facility] Comment on above: Performed By: #### B CID2 ####[facility] Ncqbdtxmft[address] [address]Dr. Yilan Smith Naye Parapsilosis Not detected Normal NOT DETECTED The [facility] Comment on above: Performed By: #### B CID2 ####[facility] Sswhxniycs[address] [address]Dr. Yilan Smith Naye Tropicalis Not detected Normal NOT DETECTED [facility] Comment on above: Performed By: #### B CID2 ####[facility] [address]xdq[address] [address]Dr. Erasmo Smith CTX-M Resistant Gene Not Applicable Normal NOT DETECTE D The [facility] Comment on above: Performed By: #### B CID2 ####[facility] Jcgadhvmof[address] [place], [place] [address]Dr. Erasmo Smith E. Cloacae complex Not detected Normal NOT DETECTED [facility] Comment on above: Performed By: #### B CID2 ####[facility] Ugktseijlw[address] [place], [place] [address]Dr. Erasmo Smith E. faecalis Not detected Normal NOT DETECTED The [facility] Comment on above: Performed By: #### B CID2 ####[facility] Krizomw[address] [place], [place] [address]Dr. Erasmo Smith E. faecium Not detected Normal NOT DETECTED The [facility] Comment on above: Performed By: #### B CID2 ####[facility] Yfxtzhdiqb[address] [place], [place] [address]Dr. Erasmo Smith Enterobacteriaceae Detected Critically abnormal NOT DETECTED The [facility] Comment on above: Performed By: #### B CID2 ####[facility] Osanshpasr[address] [place], [place] [address]Dr. Erasmo Smith Escherichia coli Detected Critically abnormal NOT DETECTED The [facility] Comment on above: Performed By: #### B CID2 ####[facility] Fiwygajxmc184[address] [place], [place] [address]Dr. Erasmo Smith H. influenzae Not detected Normal NOT DETECTED The [facility] Comment on above: Performed By: #### B CID2 ####[facility] [address]cstpfhu[address] [place], [place] [address]Dr. Erasmo Smith IMP Resistant Gene Not Applicable Normal NOT DETECTED The [facility] Comment on above: Performed By: #### B CID2 ####[facility] Jntokcmtjm8[address] [place], [place] [address]Dr. Erasmo Smith K. oxytoca Not detected Normal NOT DETECTED The [facility] Comment on above: Performed By: #### B CID2 ####[facility] [address] [place], [place] [id number]. Erasmo Smith K. pneumoniae Not detected Normal NOT DETECTED The [facility] Comment on above: Performed By: #### B CID2 ####[facility] Cxoijghife5900[address] [place], [place] [address]Dr. Erasmo Smith Klebsiella aerogenes Not detected Normal NOT DETECTED The [facility] Comment on above: Performed By: #### B CID2 ####[facility] Szxtrdyvch[address] [place], [place] [address]Dr. Erasmo Smith KPC Resistant Gene Not detected Normal NOT DETECTED [facility] Comment on above: Performed By: #### B CID2 ####[facility] Aqnnhjmjqf[address] [place], [place] [address]Dr. Erasmo Smith List. monocytogenes Not detected Normal NOT DETECTED [facility] Comment on above: Performed By: #### B CID2 ####[facility] Nbefaektzb068[address] [place], [place] [address]Dr. Erasmo Smith Mcr-1 Resistant Gene Not Applicable Normal NOT DETECTE D [facility] Comment on above: Performed By: #### B CID2 ####[facility] Bjozsfzczc[address] [place], [place] [address]Dr. Erasmo Smith mecA/C Not Applicable Normal NOT DETECTED The [facility] Comment on above: Performed By: #### B CID2 ####[facility] Nwauikpjpk[address] [place], [place] [address]Dr. Erasmo Smith mecA/C MREJ Not Applicable Normal NOT DETECTED The [facility] Comment on above: Performed By: #### B CID2 ####[facility] Pdvtuaulmn615[address] [place], [place] [address]Dr. Erasmo Smith N. meningitidis Not detected Normal NOT DETECTED The [facility] Comment on above: Performed By: #### B CID2 ####[facility] Hizhelqbkn[address] [place], [place] [address]Dr. Erasmo Smith NDM Resistant Gene Not Applicable Normal NOT DETECTED The [facility] Comment on above: Performed By: #### B CID2 ####[facility] Agcevztewk007[address] [place], [place] [address]Dr. Erasmo Smith Oxa-48-like Not Applicable Normal NOT DETECTED The [facility] Comment on above: Performed By: #### B CID2 ####[facility] Moiddpczet96[address] [place], [place] [address]Dr. Erasmo Smith Proteus Not detected Normal NOT DETECTED The [facility] Comment on above: Performed By: #### B CID2 ####[facility] Eitrhldqbq[address] [place], [place] [address]Dr. Erasmo Smith Pseud. aeruginosa Not detected Normal NOT DETECTED The [facility] Comment on above: Performed By: #### B CID2 ####[facility] Umnlvslcbq[address] [place], [place] [address]Dr. Erasmo Smith S. maltophilia Not detected Normal NOT DETECTED The [facility] Comment on above: Performed By: #### B CID2 ####[facility] Vutdsysizd[address] [place], [place] [address]Dr. Erasmo Smith Salmonella Not detected Normal NOT DETECTED The [facility] Comment on above: Performed By: #### B CID2 ####[facility] Sseaadmebl50[address] [place], [place] [address]Dr. Erasmo Smith Seratia marcescens Not detected Normal NOT DETECTED [facility] Comment on above: Performed By: #### B CID2 ####[facility] Hiwsxsuzfg343[address] [place], [place] [address]Dr. Erasmo Smith Site: l ac Normal The [facility] Comment on above: Performed By: #### B CID2 ####[facility] Iuhqpswgaf415[address] [place], [place] [address]Dr. Erasmo Smith Staph. aureus Not detected Normal NOT DETECTED The [facility] Comment on above: Performed By: #### B CID2 ####[facility] Ccurnfrbac426[address] [place], [place] [address]Dr. Erasmo Smith Staph. epidermidis Not detected Normal NOT DETECTED [facility] Comment on above: Performed By: #### B CID2 ####[facility] Arlcypsrob[address] [place], [place] [address]Dr. Erasmo Smith Staph. lugdunensis Not detected Normal NOT DETECTED [facility] Comment on above: Performed By: #### B CID2 ####[facility] [address] [address]Dr. Erasmo Smith Staphylococcus Not detected Normal NOT DETECTED The [facility] Comment on above: Performed By: #### B CID2 ####[facility] Tgmasjwlnj[address] [address]Dr. Erasmo Smith Strep. agalactiae Not detected Normal NOT DETECTED The [facility] Comment on above: Performed By: #### B CID2 ####[facility] Zwcrkeikyx[address] [address]Dr. Erasmo Smith Strep. pneumoniae Not detected Normal NOT DETECTED The [facility] Comment on above: Performed By: #### B CID2 ####[facility] Kerwprxqlq320[address] [place], [place] [address]Dr. Erasmo Smith Strep. pyogenes Not detected Normal NOT DETECTED The [facility] Comment on above: Performed By: #### B CID2 ####[facility] Bvmykzhnmw27[address] [place], [place] [address]Dr. Erasmo Smith Streptococcus Not detected Normal NOT DETECTED The [facility] Comment on above: Performed By: #### B CID2 ####[facility] Czivcdzckq[address] [place], [place] [address]Dr. Erasmo Smith Fran/B Resist. Gene Not detected Normal NOT DETECTED [facility] Comment on above: Performed By: #### B CID2 ####[facility] Hqjhbcxbur119[address] [place], [place] [address]Dr. Erasmo Smith VIM Resistant Gene Not Applicable Normal NOT DETECTED The [facility] Comment on above: Performed By: #### B CID2 ####[facility] Mtkowemwih[address] [place], [place] [address]Dr. Erasmo Smith BNPon 12-02-2022 Natriuretic peptide B (Bld) [Mass/Vol] 1059.0 pg/mL Normal <=1,800.0 The [facility] Comment on above: Performed By: #### B POSTING SPECIALIST #### [facility] [address] [address] [address] Erasmo Smith CBC AUTO DIFFon 12-02-2022 BASO # 0.0 103/ul Normal 0.0-0.1 The [facility] Comment on above: Performed By: #### C BC ####[facility] S[address] [address]DrMeena Smith Basophils/100 WBC (Bld) 0.2 % Normal 0.2-2.0 The [facility] Comment on above: Performed By: #### C BC ####[facility] Avyh[address]quza[address] [address]DrMeena Smith EO # 0.0 103/ul Normal 0.0-0.7 The [facility] Comment on above: Performed By: #### C BC ####[facility] Neenjlssnf[address] [place], [place] [address]DrMeena Smith Eosinophils/100 WBC (Bld) 0.0 % Critically low 0.9-7.0 [facility] Comment on above: Performed By: #### C BC ####[facility] Gwhpgmftbo[address] [place], [place] [address]Dr. Erasmo Smith Erythrocyte distribution width (RBC) [Ratio] 17.3 % Critically high 11.0-15.0 [facility] Comment on above: Performed By: #### C BC ####[facility] Ageicbijxi[address] [place], [place] [address]DrMeena Smith Hematocrit (Bld) [Volume fraction] 31.4 % Critically low 36.0-48.0 [facility] Comment on above: Performed By: #### C BC ####[facility] Rhjvhjkrka[address] [place], [place] [address]Dr. Erasmo Smith Hemoglobin (Bld) [Mass/Vol] 10.0 g/dL Critically low 12.0-16.0 The [facility] Comment on above: Performed By: #### C BC ####[facility] [address] [address]DrMeena Smith IG # 0.06 10e3/ul Critically high 0.00-0.03 [facility] Comment on above: Performed By: #### C BC ####[facility] [address]ofynut[address] [id number]. Erasmo Smith IG % 0.4 % Normal 0.0-0.5 The [facility] Comment on above: Performed By: #### C BC ####[facility] Zogllosjew[address] [id number]. Erasmo Smith LYMPH # 1.3 103/ul Normal 1.2-3.8 The [facility] Comment on above: Performed By: #### C BC ####[facility] Fgcslshpfh[address] [id number]. Erasmo Luis Lymphocytes/100 WBC (Bld) 8.1 % Critically low 20.5-60.0 The [facility] Comment on above: Performed By: #### C BC ####[facility] [address]yxjs[address] [address]Dr. Erasmo Luis MANUAL DIFF REQ NO Normal The [facility] Comment on above: Performed By: #### C BC ####[facility] Mfqvxuyxhv[address] [id number]. Erasmo Smith MCH (RBC) [Entitic mass] 25.6 pg Critically low 26.7-34.0 The [facility] Comment on above: Performed By: #### C BC ####[facility] [address] [address]Dr. Erasmo Smith MCHC (RBC) [Mass/Vol] 31.8 g/dL Normal 29.9-35.2 [facility] Comment on above: Performed By: #### C BC ####[facility] N[address]rnecbur[address] [id number]. Erasmo Smith MCV (RBC) [Entitic vol] 80.3 fL Critically low 81.0-99.0 [facility] Comment on above: Performed By: #### C BC ####[facility] Oaadjoyheb[address] [place], [place] [address]Dr. Erasmo Luis MONO # 0.6 103/ul Normal 0.3-0.8 [facility] Comment on above: Performed By: #### C BC ####[facility] Ugsmbsviyb12[address] [place] [id number]. Erasmo Smith Monocytes/100 WBC (Bld) 3.7 % Normal 1.7-12.0 [facility] Comment on above: Performed By: #### C BC ####[facility] Xlbpmzacpa[address] [place] [id number]. Erasmo Smith NEUT # 14.5 103/ul Critically high 1.4-6.[address] [facility] Comment on above: Performed By: #### C BC ####[facility] [address]ch[address] [address]Dr. Erasmo Smith Neutrophils/100 WBC (Bld) 87.6 % Critically high 43.0-75.0 [facility] Comment on above: Performed By: #### C BC ####[facility] Pbs[address]urwxd[address] [place] [address]Dr. Erasmo Smith Platelet mean volume (Bld) [Entitic vol] 10.0 fL Normal 9.5-13.5 [facility] Comment on above: Performed By: #### C BC ####[facility] Jpfnbtyakz[address] [place] [id number]. Erasmo Smith PLT 206 103/ul Normal 150-450 [facility] Comment on above: Performed By: #### C BC ####[facility] Ttmuzhcsxk44[address] [place] [id number]. Erasmo Smith RBC 3.91 106/ul Critically low 4.20-5.40 The [facility] Comment on above: Performed By: #### C BC ####[facility] Rbatgnexzx4[address] [place] [id number]. Erasmo Smith WBC 16.5 103/ul Critically high 4.0-11.[address] [facility] Comment on above: Performed By: #### C BC ####[facility] [address] [place], [place] [address]Dr. Erasmo Smith ECHOCARDIO M/2D COMPLETEon 0 12-02-2022 ECHOCARDIO M/2D COMPLETE Patient: BREANN STARKS Exam Date: 12/02/2022 : 1945 Gender:F Ordering : KAYLEY HOLMAN . Admission #: [id number] Family : DR LIEBERMAN Reyna JOHNSON . Order #: [id number] CLICK HERE TO VIEW EXAM ECHOCARDIOGRAM REPORT [...] Salazar M.D. on 12/02/2022 at 21:58 Normal [facility] MAGNESIUMon 12-02-2022 Magnesium [Mass/Vol] 2.0 mg/dL Normal 1.8-2.4 [facility] Comment on above: Performed By: #### B POSTING SPECIALIST #### [facility] [address] [place] [address] Dr. Erasmo Smith PROF 14(COMP METB)on 023 Albumin [Mass/Vol] 2.7 g/dL Critically low 3.4-5.0 Th [facility] Comment on above: Performed By: #### B POSTING SPECIALIST #### [facility] [address] [address] [address] Erasmo Smith Albumin/Globulin [Mass ratio] 0.6 {ratio} Normal [facility] Comment on above: Performed By: #### B POSTING SPECIALIST #### [facility] [address] [place] [address] Dr. Erasmo Smith ALP [Catalytic activity/Vol] 128 U/L Critically high 46-116 [facility] Comment on above: Performed By: #### B POSTING SPECIALIST #### [facility] [address] [address] [address] Erasmo Smith ALT [Catalytic activity/Vol] 34 U/L Normal 14-59 [facility] Comment on above: Performed By: #### B POSTING SPECIALIST #### [facility] [address] [place] [address] Dr. Erasmo Smith Anion gap [Moles/Vol] 10.6 mmol/L Normal [facility] Comment on above: Performed By: #### B POSTING SPECIALIST #### [facility] [address] [place] [address] Dr. Erasmo Smith AST [Catalytic activity/Vol] 27 U/L Normal 15-37 [facility] Comment on above: Performed By: #### B POSTING SPECIALIST #### [facility] [address] [place] [address] Dr. Erasmo Smith Bilirubin [Mass/Vol] 0.5 mg/dL Normal 0.2-1.0 [facility] Comment on above: Performed By: #### B POSTING SPECIALIST #### [facility] [address] [place] [address] Dr. Erasmo Smith Calcium [Mass/Vol] 8.4 mg/dL Critically low 8.5-10.1 [facility] Comment on above: Performed By: #### B POSTING SPECIALIST #### [facility] [address] [place] [address] Dr. Erasmo Smith Chloride [Moles/Vol] 104 mmol/L Normal 98-107 [facility] Comment on above: Performed By: #### B POSTING SPECIALIST #### [facility] [address] [place] [address] Dr. Erasmo Smith CO2 [Moles/Vol] 26.2 mmol/L Normal 21.0-32.0 [facility] Comment on above: Performed By: #### B POSTING SPECIALIST #### [facility] [address] [place] [address] Dr. Erasmo Smith Creatinine [Mass/Vol] 0.52 mg/dL Critically low 0.55-1.02 [facility] Comment on above: Performed By: #### B POSTING SPECIALIST #### [facility] [address] [place] [address] Dr. Erasmo Smith EGFR-AF ETHIOPIAN >60 Normal >=60 [facility] Comment on above: Performed By: #### B POSTING SPECIALIST #### [facility] [address] [address] [address] Erasmo Smith EGFR-NON AF ETHIOPIAN >60 Normal >=60 [facility] Comment on above: Performed By: #### B POSTING SPECIALIST #### [facility] [address] [address] [address] Erasmo Smith Globulin (S) [Mass/Vol] 4.3 g/dL Normal [facility] Comment on above: Performed By: #### B POSTING SPECIALIST #### [facility] [address] [address] [address] Erasmo Smith Glucose [Mass/Vol] 135 mg/dL Critically high 74-106 [facility] Comment on above: Performed By: #### B POSTING SPECIALIST #### [facility] [address] [place] [address] Dr. Erasmo Smith Potassium [Moles/Vol] 3.8 mmol/L Normal 3.5-5.1 [facility] Comment on above: Performed By: #### B POSTING SPECIALIST #### [facility] [address] [place] [address] Dr. Erasmo Smith Protein [Mass/Vol] 7.0 g/dL Normal 6.4-8.2 [facility] Comment on above: Performed By: #### B POSTING SPECIALIST #### [facility] [address] [place] [address] Dr. Erasmo Smith Sodium [Moles/Vol] 137 mmol/L Normal 136-145 [facility] Comment on above: Performed By: #### B POSTING SPECIALIST #### [facility] [address] [address] [address] Erasmo Smith Urea nitrogen [Mass/Vol] 16.0 mg/dL Normal 7.0-18.0 [facility] Comment on above: Performed By: #### B POSTING SPECIALIST #### [facility] [address] [place] [address] Dr. Erasmo Smith Urea nitrogen/Creatinine [Mass ratio] 30.8 mg/mg Normal [facility] Comment on above: Performed By: #### B POSTING SPECIALIST #### [facility] [address] [address] [address] Erasmo Smith PROTIMEon 12-02-2022 INR Coag (PPP) [Relative time] 4.39 {INR} Critically high [facility] Comment on above: Performed By: #### P T #### [facility] [address] [address] [address] Erasmo Smith INR GUIDELINES SEE BELOW Normal The [facility] Comment on above: Result Comment: ABNER RED INR: 2.0 - 3.0 CONDITIONS NOT LISTED BELOW 2.5 - 3.5 FOR PROSTHETIC HEART VALVE REPLACEMENT 2.5 - 3.5 RECURRENT THROMBOSIS Performed By: #### P T #### [facility] [address] [address] [address] Erasmo Smith PT Coag (PPP) [Time] 42.8 s Critically high 9.0-11.6 [facility] Comment on above: Performed By: #### P T #### [facility] [address] [address] [address] Erasmo Smith UA RANDOM W/MICROSCOPICon BACTERIA NONE SEEN Normal NONE SEEN [facility] Comment on above: Performed By: #### U AMIC ####[facility] [facility] [address] [place] [address]DrMeena Smith Bilirubin Ql (U) Negative Normal NEGATIVE The [facility] Comment on above: Performed By: #### U AMIC ####[facility] [address] [place] [address]Dr. Erasmo Smith CAST NONE SEEN Normal NONE SEEN The [facility] Comment on above: Performed By: #### U AMIC ####[facility] [address] [place] [address]DrMeena Smith Clarity (U) CLEAR Normal CLEAR The [facility] Comment on above: Performed By: #### U AMIC ####[facility] [address] [place] [address]DrMeena Smith Color (U) YELLOW Normal YELLOW The [facility] Comment on above: Performed By: #### U AMIC ####[facility] [address] [place] [address]Dr. Erasmo Smith Crystals LM Nom (Urine sed) NONE SEEN Normal NONE SEEN The [facility] Comment on above: Performed By: #### U AMIC ####[facility] [address] [place] [address]Dr. Erasmo Smith Epithelial cells LM Ql (Urine sed) RARE Normal NONE SEEN /RARE The [facility] Comment on above: Performed By: #### U AMIC ####[facility] [address] [place] [address]Dr. Erasmo Smith Glucose Ql (U) Negative Normal NEGATIVE The [facility] Comment on above: Performed By: #### U AMIC ####[facility] [address] [place] [address]Dr. Erasmo Smith Hemoglobin Ql (U) SMALL Abnormal NEGATIVE The [facility] Comment on above: Performed By: #### U AMIC ####[facility] [address] [place], [place] [address]Dr. Erasmo Smith Ketones Ql (U) 15 mg/dl Abnormal NEGATIVE The [facility] Comment on above: Performed By: #### U AMIC ####[facility] [address] [place], [place] [address]Dr. Erasmo Smith LEUKOCYTES Negative Normal NEGATIVE The [facility] Comment on above: Performed By: #### U AMIC ####[facility] [address] [place] [address]Dr. Erasmo Smith MUCOUS NONE SEEN Normal NONE SEEN The [facility] Comment on above: Performed By: #### U AMIC ####[facility] [address] [place] [address]Dr. Erasmo Smith Nitrite Ql (U) Negative Normal NEGATIVE The [facility] Comment on above: Performed By: #### U AMIC ####[facility] [address] [place] [address]Dr. Erasmo Smith pH (U) 6.0 [pH] Normal 5-9 [facility] Comment on above: Performed By: #### U AMIC ####[facility] [address] [place] [id number]. Erasmo Smith RBC 0-2 Normal 0-2 [facility] Comment on above: Performed By: #### U AMIC ####[facility] [address] [place] [id number]. Erasmo Smith SPEC GRAVITY 1.025 Normal 1.005-<=1.02 5 [facility] Comment on above: Performed By: #### U AMIC ####[facility] [address] [place] [address]Dr. Erasmo Smith UA PROTEIN TRACE Normal NEGATIVE/ TRACE [facility] Comment on above: Performed By: #### U AMIC ####[facility] [address]rend[address] [place] [address]Dr. Erasmo Smith Urobilinogen Qn (U) 4 {Shraddha'U}/dL Abnormal 0.2 - 1.0 [facility] Comment on above: Performed By: #### U AMIC ####[facility] [address] [place] [address]Dr. Erasmo Smith WBC 0-2 Abnormal NONE SEEN The [facility] Comment on above: Performed By: #### U AMIC ####[facility] [address] [place] [address]Dr. Erasmo Smith CARDIAC ROSA ELENA 3-6on 3 CK [Catalytic activity/Vol] 53 U/L Normal 26-192 The [facility] Comment on above: Performed By: #### C MREP #### [facility] [address] [place] [address] [address] Erasmo Smith CK.MB [Mass/Vol] 0.90 ng/mL Normal <=3.[address] [facility] Comment on above: Performed By: #### C MREP #### [facility] [address] [place] [address] [address] Erasmo Smith HSTROP 116.7 pg/mL Critically high 4.0-51.[address] [facility] Comment on above: Result Comment: CUT- OFF POINTS HAVE BEEN ESTABLISHED BASED ON THE FOURTH UNIVERSAL DEFINITIONS OF MYOCARDIAL INFARCTION. THE UPPER REFERENCE LIMIT (URL) OF TROPONIN, DEFINED THE 99TH PERCENTILE OF cTnI DISTRIBUTION IN A REFERENCE POPULATION, HAS BEEN CONFIRMED THE DECISION THRESHOLD FOR ND DIAGNOSIS. Performed By: #### C MREP #### [facility] [address] [place] [address] Dr. Erasmo Smith CK [Catalytic activity/Vol] 47 U/L Normal 26-192 [facility] Comment on above: Performed By: #### B POSTING SPECIALIST #### [facility] [address] [place] [address] Dr. Erasmo Smith CK.MB [Mass/Vol] 1.00 ng/mL Normal <=3.[address] [facility] Comment on above: Performed By: #### B POSTING SPECIALIST #### [facility] [address] [place] [address] Dr. Erasmo Smith HSTROP 154.3 pg/mL Critically high 4.0-51.[address] [facility] Comment on above: Result Comment: CUT- OFF POINTS HAVE BEEN ESTABLISHED BASED ON THE FOURTH UNIVERSAL DEFINITIONS OF MYOCARDIAL INFARCTION. THE UPPER REFERENCE LIMIT (URL) OF TROPONIN, DEFINED THE 99TH PERCENTILE OF cTnI DISTRIBUTION IN A REFERENCE POPULATION, HAS BEEN CONFIRMED THE DECISION THRESHOLD FOR ND DIAGNOSIS. Performed By: #### B POSTING SPECIALIST #### [facility] [address] [place] [address] Dr. Erasmo Smith CBC W MANUAL DIFFon 12-02-19 23 ATYPICAL LYMPH # Normal [facility] Comment on above: Performed By: #### C ANGELA #### [facility] [address] [place] [address] Dr. Erasmo Smith ATYPICAL LYMPH % Normal The [facility] Comment on above: Performed By: #### C ANGELA #### [facility] [address] [place] [address] Dr. Erasmo Smith BAND # 0.6 103/ul Critically high 0.0-0.3 The [facility] Comment on above: Performed By: #### C ANGELA #### [facility] [address] [place] [address] Dr. Erasmo Smith BAND % 3 % Normal 0-5 [facility] Comment on above: Performed By: #### C ALHAJIBLAISE #### [facility] [address] [place] [address] Dr. Erasmo Smith BASOM # 0.00 103/ul Normal 0.00-0.10 [facility] Comment on above: Performed By: #### C BCMAN #### [facility] [address] [place] [address] Dr. Erasmo Smith BASOM % 0.0 % Critically low 0.2-2.[address] [facility] Comment on above: Performed By: #### C BCMAN #### [facility] [address] [place] [address] Dr. Erasmo Smith BLAST # Normal [facility] Comment on above: Performed By: #### C BCBLAISE #### [facility] [address] [place] [address] Dr. Erasmo Smith BLAST % Normal [facility] Comment on above: Performed By: #### C BCBLAISE #### [facility] [address] [place] [address] Dr. Erasmo Smith CORRECTED WBC Normal 4.0-11.0 [facility] Comment on above: Performed By: #### C BCBLAISE #### [facility] [address] [place] [address] Dr. Erasmo Smith EOS # 0.19 103/ul Normal 0.00-0.70 [facility] Comment on above: Performed By: #### C ANGELA #### [facility] [address] [place] [address] Dr. Erasmo Smith EOS% 1.0 % Normal 0.9-7.0 [facility] Comment on above: Performed By: #### C BCBLAISE #### [facility] [address] [place] [address] Dr. Erasmo Smith HCT 32.7 % Critically low 36.0-48.[address] [facility] Comment on above: Performed By: #### C BCBLAISE #### [facility] [address] [place] [address] Dr. Erasmo Smith HGB 10.5 g/dl Critically low 12.0-16.[address] [facility] Comment on above: Performed By: #### C ANGELA #### [facility] [address] [place] [address] [address] Erasmo Smith LYMPHM # 0.76 103/ul Critically low 1.20-3.80 [facility] Comment on above: Performed By: #### C ANGELA #### [facility] [address] [place] [address] [address] Erasmo Smith LYMPHM% 4.0 % Critically low 20.5-60.[address] [facility] Comment on above: Performed By: #### C ANGELA #### [facility] [address] [place] [address] [address] Erasmo Smith MCH 25.9 pg Critically low 26.7-34.[address] [facility] Comment on above: Performed By: #### C ANGELA #### [facility] [address] [place] [address] [address] Erasmo Smith MCHC 32.1 g/dl Normal 29.9-35.2 [facility] Comment on above: Performed By: #### C ANGELA #### [facility] [address] [place] [address] [address] Erasmo Smith MCV 80.5 fL Critically low 81.0-99.[address] [facility] Comment on above: Performed By: #### C ANGELA #### [facility] [address] [place] [address] [address] Erasmo Smith METAMYELOCYTE # Normal [facility] Comment on above: Performed By: #### C ANGELA #### [facility] [address] [place] [address] [address] Erasmo Smith METAMYELOCYTE % Normal [facility] Comment on above: Performed By: #### C ANGELA #### [facility] [address] [place] [address] [address] Erasmo Smith MONOM# 1.14 103/ul Critically high 0.30-0.80 [facility] Comment on above: Performed By: #### C ANGELA #### [facility] [address] [place] [address] [address] Erasmo Smith MONOM% 6.0 % Normal 1.7-12.0 [facility] Comment on above: Performed By: #### C ALHAJIMAN #### [facility] [address] [address] [address] Erasmo Smith MPV 9.4 fL Critically low 9.5-13.[address] [facility] Comment on above: Performed By: #### C ANGELA #### [facility] [address] [place] [address] [address] Erasmo Smith MYELOCYTE # Normal [facility] Comment on above: Performed By: #### C ANGELA #### [facility] [address] [place] [address] [address] Erasmo Smith MYELOCYTE % Normal [facility] Comment on above: Performed By: #### C ANGELA #### [facility] [address] [place] [address] Dr. Erasmo Smith NRBC Normal [facility] Comment on above: Performed By: #### C ANGELA #### [facility] [address] [place] [address] Dr. Erasmo Smith PLT 195 103/ul Normal 150-450 [facility] Comment on above: Performed By: #### C ANGELA #### [facility] [address] [place] [address] Dr. Erasmo Smith RBC 4.06 106/ul Critically low 4.20-5.40 [facility] Comment on above: Performed By: #### C ANGELA #### [facility] [address] [place] [address] Dr. Erasmo Smith RDW 17.7 % Critically high 11.0-15.0 [facility] Comment on above: Performed By: #### C ANGELA #### [facility] [address] [place] [address] Dr. Erasmo Smith SEG # 16.34 103/ul Critically high 1.40-6.50 [facility] Comment on above: Performed By: #### C ANGELA #### [facility] [address] [place] [address] Dr. Erasmo Smith SEG % 86.0 % Critically high 43.0-75.0 [facility] Comment on above: Performed By: #### Yamile MILLER #### [facility] [address] [place], [place] [address] Dr. Erasmo Smith WBC 19.0 103/ul Critically high 4.0-11.0 [facility] Comment on above: Performed By: #### Yamile MILLER #### [facility] [address] [place], [place] [address] HEAD WO CONon [...] SALOME MCCORMICK Date: 2022 14:50 Normal [facility] CULTURE BLOODon 2022 Microscopic examination of blood, culture Culture Observations: Aerobic and Anaerobic bottle positive. BCID: E. Coli Culture Observations: Refer to for VIOLET. Isolate 1 Escherichia coli Growth of Normal [facility] Comment on above: Performed By: #### B LDCX2 ####[facility] [address] [place], [place] [address]HzDr. Erasmo Smith Covid-19 PCR (CVDTB)on 11-11 SARS-CoV-2 (COVID-19) RNA EMILY+probe Ql (Unsp spec) Not detected Normal NOT DETECTED The [facility] [...] for this test is supported by the [place] of [employer] and Human Service's declaration that [...] used). Performed By: #### C MREP #### [facility] [address] [place] [address] [address] Erasmo Smith LACTATE/LACTIC ACIDon 2022 Lactate [Moles/Vol] 1.2 mmol/L Normal 0.4-2.0 [facility] Comment on above: Performed By: #### L ACT ####[facility] [address] [place] [address]Dr. Erasmo Smith PH VENOUS BLOODon 2022 PCO2 VENOUS 37.8 mmHg Critically low 40.0-52.0 [facility] Comment on above: Performed By: #### P HVEN ####[facility] [address] [place] [id number] Smith pH VENOUS 7.417 Normal 7.330-7.430 [facility] Comment on above: Performed By: #### P HVEN ####[facility] [address] [place] [id number]. Erasmo Smith PROF 14(COMP METB)on 023 Albumin [Mass/Vol] 3.1 g/dL Critically low 3.4-5.0 [facility] Comment on above: Performed By: #### H ALEXSANDER, CMP ####[facility] [address] [place] [phone] Smith Albumin/Globulin [Mass ratio] 0.8 {ratio} Normal [facility] Comment on above: Performed By: #### H STROPN, CMP ####[facility] [address] [place] [address]Dr. Erasmo Smith ALP [Catalytic activity/Vol] 194 U/L Critically high 46-116 [facility] Comment on above: Performed By: #### H STROPN, CMP ####[facility] [address] [place] [address]Dr. Erasmo Smith ALT [Catalytic activity/Vol] 37 U/L Normal 14-59 [facility] Comment on above: Performed By: #### H STROPN, CMP ####[facility] [address] [place] [address]Dr. Erasmo Smith Anion gap [Moles/Vol] 14.6 mmol/L Normal Th e [facility] Comment on above: Performed By: #### H STROLYNDA, CMP ####[facility] [address] [place], [place] [address]Dr. Erasmo Smith AST [Catalytic activity/Vol] 32 U/L Normal 15-37 [facility] Comment on above: Performed By: #### H STROLYNDA, CMP ####[facility] [address] [place], [place] [address]Dr. Erasmo Smith Bilirubin [Mass/Vol] 1.0 mg/dL Normal 0.2-1.0 [facility] Comment on above: Performed By: #### H STROLYNDA, CMP ####[facility] [address] [place], [place] [address]Dr. Erasmo Smith Calcium [Mass/Vol] 8.9 mg/dL Normal 8.5-10.1 [facility] Comment on above: Performed By: #### H STROPN, CMP ####[facility] [address] [place] [address]Dr. Erasmo Luis Chloride [Moles/Vol] 103 mmol/L Normal 98-107 [facility] Comment on above: Performed By: #### H STROPN, CMP ####[facility] [address] [place] [address]Dr. Erasmo Smith CO2 [Moles/Vol] 23.6 mmol/L Normal 21.0-32.0 [facility] Comment on above: Performed By: #### H STROPN, CMP ####[facility] [address] [place] [address]Dr. Erasmo Smith Creatinine [Mass/Vol] 0.69 mg/dL Normal 0.55-1.02 [facility] Comment on above: Performed By: #### H STROPN, CMP ####[facility] [address] [place] [phone]. Erasmo Smith EGFR-AF ETHIOPIAN >60 Normal >=60 [facility] Comment on above: Performed By: #### H STROPN, CMP ####[facility] [address] [place] [address]Dr. Erasmo Smith EGFR-NON AF ETHIOPIAN >60 Normal >=60 [facility] Comment on above: Performed By: #### H STROPN, CMP ####[facility] [address] [place] [address]Dr. Erasmo Smith Globulin (S) [Mass/Vol] 4.1 g/dL Normal [facility] Comment on above: Performed By: #### H STROPN, CMP ####[facility] [address] [place] [address]Dr. Erasmo Smith Glucose [Mass/Vol] 121 mg/dL Critically high 74-106 [facility] Comment on above: Performed By: #### H STROPN, CMP ####[facility] [address] [place] [address]Dr. Erasmo Smith Potassium [Moles/Vol] 3.2 mmol/L Critically low 3.5-5.1 [facility] Comment on above: Performed By: #### H STROPN, CMP ####[facility] [address] [place] [address]Dr. Erasmo Smith Protein [Mass/Vol] 7.2 g/dL Normal 6.4-8.2 [facility] Comment on above: Performed By: #### H STROPN, CMP ####[facility] [address] [place] [address]Dr. Erasmo Smith Sodium [Moles/Vol] 138 mmol/L Normal 136-145 [facility] Comment on above: Performed By: #### H ALEXSANDER, CMP ####[facility] [address] [place] [address]Dr. Erasmo Smith Urea nitrogen [Mass/Vol] 17.0 mg/dL Normal 7.0-18.0 [facility] Comment on above: Performed By: #### H ALEXSANDER, CMP ####[facility] [address] [place] [address]Dr. Erasmo Smith Urea nitrogen/Creatinine [Mass ratio] 24.6 mg/mg Normal [facility] Comment on above: Performed By: #### H ALEXSANDER, CMP ####[facility] [address] [place] [address]Dr. Erasmo Smith PROTIMEon 2022 INR Coag (PPP) [Relative time] 3.58 {INR} Normal [facility] Comment on above: Performed By: #### P T, PTT #### [facility] [address] [place] [address] Dr. Erasmo Smith INR GUIDELINES SEE BELOW Normal The [facility] Comment on above: Result Comment: ABNER RED INR: 2.0 - 3.0 CONDITIONS NOT LISTED BELOW 2.5 - 3.5 FOR PROSTHETIC HEART VALVE REPLACEMENT 2.5 - 3.5 RECURRENT THROMBOSIS Performed By: #### P T, PTT #### [facility] [address] [place] [address] [address] Erasmo Smith PT Coag (PPP) [Time] 35.3 s Critically high 9.0-11.6 [facility] Comment on above: Performed By: #### P T, PTT #### [facility] [address] [place] [address] [address] Erasmo Smith PTTon 2022 aPTT Coag (Bld) [Time] 40.3 s Critically high 22.3-36. 2 [facility] Comment on above: Performed By: #### P T, PTT #### [facility] [address] [place] [address] [address] Erasmo Smith TROPONIN, HIGH SENSITIVITYon 2022 HSTROP 194.7 pg/mL Critically high 4.0-51.3 [facility] Comment on above: Result Comment: CUT- OFF POINTS HAVE BEEN ESTABLISHED BASED ON THE FOURTH UNIVERSAL DEFINITIONS OF MYOCARDIAL INFARCTION. THE UPPER REFERENCE LIMIT (URL) OF TROPONIN, DEFINED THE 99TH PERCENTILE OF cTnI DISTRIBUTION IN A REFERENCE POPULATION, HAS BEEN CONFIRMED THE DECISION THRESHOLD FOR ND DIAGNOSIS. Performed By: #### C MREP #### [facility] [address] [place] [address] [address] Erasmo Smith HSTROP 218.0 pg/mL Critically high 4.0-51.3 [facility] Comment on above: Result Comment: CUT- OFF POINTS HAVE BEEN ESTABLISHED BASED ON THE FOURTH UNIVERSAL DEFINITIONS OF MYOCARDIAL INFARCTION. THE UPPER REFERENCE LIMIT (URL) OF TROPONIN, DEFINED THE 99TH PERCENTILE OF cTnI DISTRIBUTION IN A REFERENCE POPULATION, HAS BEEN CONFIRMED THE DECISION THRESHOLD FOR ND DIAGNOSIS. Performed By: #### B POSTING SPECIALIST #### [facility] [address] [place] [address] [address] Erasmo Smith XR CHEST 1 Von [...] by: HONG ALSTON Date: 2022 14:18 Normal [facility] MAMM SCREEN 3D TOÑITO CADon 11-26-2022 MG MAMM SCREEN 3D TOÑITO CAD Patient: BREANN STARKS Exam Date: 11/26/2022 : 1945 Gender:F Ordering : DR LUISANA JOHNSON . Admission #: [id number] Family : Order #: [id number] CLICK HERE TO VIEW EXAM RADIOLOGY REPORT [...] Treatments None Family Cancers None LOCATION: [facility] BREAST COMPOSITION: Heterogeneously dense,which may [...] M.D. on 11/26/2022 at 14:13 Normal [facility] PROF 14(COMP METB)on 022 Albumin [Mass/Vol] 3.8 g/dL Normal 3.4-5.0 [facility] Comment on above: Performed By: #### C MREP #### [facility] [address] [place] [address] Dr. Erasmo Smith Albumin/Globulin [Mass ratio] 0.8 {ratio} Normal [facility] Comment on above: Performed By: #### C MREP #### [facility] [address] [place] [address] Dr. Erasmo Smith ALP [Catalytic activity/Vol] 102 U/L Normal 46-116 [facility] Comment on above: Performed By: #### C MREP #### [facility] [address] [place] [address] [address] Erasmo Smith ALT [Catalytic activity/Vol] 47 U/L Normal 14-59 [facility] Comment on above: Performed By: #### C MREP #### [facility] [address] [place] [address] [address] Erasmo Smith Anion gap [Moles/Vol] 12.5 mmol/L Normal [facility] Comment on above: Performed By: #### C MREP #### [facility] [address] [place] [address] [address] Erasmo Smith AST [Catalytic activity/Vol] 36 U/L Normal 15-37 [facility] Comment on above: Performed By: #### C MREP #### [facility] [address] [place] [address] [address] Erasmo Smith Bilirubin [Mass/Vol] 0.3 mg/dL Normal 0.2-1.0 [facility] Comment on above: Performed By: #### C MREP #### [facility] [address] [place] [address] [address] Erasmo Smith Calcium [Mass/Vol] 8.9 mg/dL Normal 8.5-10.1 [facility] Comment on above: Performed By: #### C MREP #### [facility] [address] [place] [address] [address] Erasmo Smith Chloride [Moles/Vol] 106 mmol/L Normal 98-107 [facility] Comment on above: Performed By: #### C MREP #### [facility] [address] [place] [address] [address] Erasmo Smith CO2 [Moles/Vol] 26.9 mmol/L Normal 21.0-32.0 [facility] Comment on above: Performed By: #### C MREP #### [facility] [address] [place] [address] [address] Erasmo Smith Creatinine [Mass/Vol] 0.79 mg/dL Normal 0.55-1.02 [facility] Comment on above: Performed By: #### C MREP #### [facility] [address] [place] [address] [address] Erasmo Smith EGFR-AF ETHIOPIAN >60 Normal >=60 [facility] Comment on above: Performed By: #### C MREP #### [facility] [address] [place] [address] [address] Erasmo Smith EGFR-NON AF ETHIOPIAN >60 Normal >=60 [facility] Comment on above: Performed By: #### C MREP #### [facility] [address] [place] [address] [address] Erasmo Smith Globulin (S) [Mass/Vol] 4.6 g/dL Normal [facility] Comment on above: Performed By: #### C MREP #### [facility] [address] [place] [address] [address] Erasmo Smith Glucose [Mass/Vol] 102 mg/dL Normal 74-106 [facility] Comment on above: Performed By: #### C MREP #### [facility] [facility] [address] [address] [address] Erasmo Smith Potassium [Moles/Vol] 4.4 mmol/L Normal 3.5-5.1 [facility] Comment on above: Performed By: #### C MREP #### [facility] [address] [place] [address] Dr. Erasmo Smith Protein [Mass/Vol] 8.4 g/dL Critically high 6.4-8.2 [facility] Comment on above: Performed By: #### C MREP #### [facility] [address] [place] [address] Dr. Erasmo Smith Sodium [Moles/Vol] 141 mmol/L Normal 136-145 [facility] Comment on above: Performed By: #### C MREP #### [facility] [address] [place] [address] Dr. Erasmo Smith Urea nitrogen [Mass/Vol] 28.0 mg/dL Critically high 7.0-18.0 [facility] Comment on above: Performed By: #### C MREP #### [facility] [address] [place] [address] Dr. Erasmo Smith Urea nitrogen/Creatinine [Mass ratio] 35.4 mg/mg Normal [facility] Comment on above: Performed By: #### C MREP #### [facility] [address] [place] [address] Dr. Erasmo Smith CBC AUTO DIFFon 07-12-2022 BASO # 0.1 103/ul Normal 0.0-0.1 [facility] Comment on above: Performed By: #### B POSTING SPECIALIST #### [facility] [address] [address] [address] Erasmo Smith Basophils/100 WBC (Bld) 0.5 % Normal 0.2-2.0 [facility] Comment on above: Performed By: #### B POSTING SPECIALIST #### [facility] [address] [place] [address] Dr. Erasmo Smith EO # 0.2 103/ul Normal 0.0-0.7 [facility] Comment on above: Performed By: #### B POSTING SPECIALIST #### [facility] [address] [place] [address] Dr. Erasmo Smith Eosinophils/100 WBC (Bld) 2.5 % Normal 0.9-7.0 [facility] Comment on above: Performed By: #### B POSTING SPECIALIST #### [facility] [address] [place] [address] Dr. Erasmo Smith Erythrocyte distribution width (RBC) [Ratio] 17.2 % Critically high 11.0-15.0 [facility] Comment on above: Performed By: #### B POSTING SPECIALIST #### [facility] [address] [place] [address] Dr. Erasmo Smith Hematocrit (Bld) [Volume fraction] 35.0 % Critically low 36.0-48.0 [facility] Comment on above: Performed By: #### B POSTING SPECIALIST #### [facility] [address] [place] [address] Dr. Erasmo Smith Hemoglobin (Bld) [Mass/Vol] 11.3 g/dL Critically low 12.0-16.0 [facility] Comment on above: Performed By: #### B POSTING SPECIALIST #### [facility] [address] [place] [address] Dr. Erasmo Smith IG # 0.02 10e3/ul Normal 0.00-0.03 [facility] Comment on above: Performed By: #### B POSTING SPECIALIST #### [facility] [address] [place] [address] Dr. Erasmo Smith IG % 0.2 % Normal 0.0-0.5 [facility] Comment on above: Performed By: #### B POSTING SPECIALIST #### [facility] [address] [place] [address] Dr. Erasmo Smith LYMPH # 2.3 103/ul Normal 1.2-3.8 [facility] Comment on above: Performed By: #### B POSTING SPECIALIST #### [facility] [address] [place] [address] Dr. Erasmo Smith Lymphocytes/100 WBC (Bld) 25.4 % Normal 20.5-60.0 [facility] Comment on above: Performed By: #### B POSTING SPECIALIST #### [facility] [address] [place] [address] Dr. Erasmo Smith MANUAL DIFF REQ NO Normal [facility] Comment on above: Performed By: #### B POSTING SPECIALIST #### [facility] [address] [place] [address] Dr. Erasmo Smith MCH (RBC) [Entitic mass] 25.5 pg Critically low 26.7-34.0 [facility] Comment on above: Performed By: #### B POSTING SPECIALIST #### [facility] [address] [place] [address] Dr. Erasmo Smith MCHC (RBC) [Mass/Vol] 32.3 g/dL Normal 29.9-35.2 [facility] Comment on above: Performed By: #### B POSTING SPECIALIST #### [facility] [address] [place] [address] Dr. Erasmo Smith MCV (RBC) [Entitic vol] 78.8 fL Critically low 81.0-99.0 [facility] Comment on above: Performed By: #### B POSTING SPECIALIST #### [facility] [address] [place] [address] Dr. Erasmo Smith MONO # 0.7 103/ul Normal 0.3-0.8 [facility] Comment on above: Performed By: #### B POSTING SPECIALIST #### [facility] [address] [place] [address] Dr. Erasmo Smith Monocytes/100 WBC (Bld) 7.5 % Normal 1.7-12.0 [facility] Comment on above: Performed By: #### B POSTING SPECIALIST #### [facility] [address] [place] [address] Dr. Erasmo Smith NEUT # 5.9 103/ul Normal 1.4-6.5 [facility] Comment on above: Performed By: #### B POSTING SPECIALIST #### [facility] [address] [place] [address] Dr. Erasmo Smith Neutrophils/100 WBC (Bld) 63.9 % Normal 43.0-75.0 [facility] Comment on above: Performed By: #### B POSTING SPECIALIST #### [facility] [address] [place] [address] Dr. Erasmo Smith Platelet mean volume (Bld) [Entitic vol] 9.0 fL Critically low 9.5-13.5 [facility] Comment on above: Performed By: #### B POSTING SPECIALIST #### [facility] [address] [place] [address] Dr. Erasmo Smith PLT 305 103/ul Normal 150-450 [facility] Comment on above: Performed By: #### B POSTING SPECIALIST #### [facility] [address] [place] [address] Dr. Erasmo Smith RBC 4.44 106/ul Normal 4.20-5.40 [facility] Comment on above: Performed By: #### B POSTING SPECIALIST #### [facility] [address] [place] [address] Dr. Erasmo Smith WBC 9.2 103/ul Normal 4.0-11.0 [facility] Comment on above: Performed By: #### B POSTING SPECIALIST #### [facility] [address] [place] [address] CHEST WO CONon [...] by: PAULA BROWN Date: 2022-05-27 15:27 Normal [facility] HEMOGLOBINon 04-20-2022 Hemoglobin (Bld) [Mass/Vol] 10.6 g/dL Critically low 12.0-16.0 [facility] Comment on above: Performed By: #### H GB ####[facility] [address] [address]Dr. Erasmo Smith CULTURE SPUTUMon 04-02-2022 CULTURE SPUTUM Isolate 1 Pseudomonas aeruginosa Light growth of ORGANISM 1 Pseudomonas aeruginosa ANTIBIOTIC M.I.C RX STATUS Piperacillin/Tazobac saez 8 S F Ceftazidime 2 S F Imipenem 1 S F Amikacin <=2 S F Gentamicin <=1 S F Tobramycin <=1 S F Ciprofloxacin <=0.25 S F Levofloxacin 0.25 S F Normal [facility] Comment on above: Performed By: #### S PUTCX ####[facility] [address] [place], [place] [address]Dr. Erasmo Smith CYTOLOGYon 03-30-2022 SENT TO REF LAB 03/31/22 Normal [facility] Comment on above: Performed By: #### C YTO #### [facility] [address] [address] [address] Erasmo Smith SPUTUM GRAM STAINon 03-30-20 22 COMMENTS Normal [facility] Comment on above: Performed By: #### B POSTING SPECIALIST #### [facility] [address] [place] [address] Dr. Erasmo Smith DIPHTHEROIDS Normal [facility] Comment on above: Performed By: #### B POSTING SPECIALIST #### [facility] [address] [address] [address] Erasmo Smith EPITHELIALS <25 Normal [facility] Comment on above: Performed By: #### B POSTING SPECIALIST #### [facility] [address] [address] [address] Erasmo Smith FUNGAL ELEMENTS Normal [facility] Comment on above: Performed By: #### B POSTING SPECIALIST #### [facility] [address] [address] [address] Erasmo Smith GRAM NEG BACILLI FEW Normal [facility] Comment on above: Performed By: #### B POSTING SPECIALIST #### [facility] [address] [address] [address] Erasmo CINTRON NEG DIPPLOCOCCI Normal [facility] Comment on above: Performed By: #### B POSTING SPECIALIST #### [facility] [address] [address] [address] Erasmo Smith GRAM POS BACILLI Normal [facility] Comment on above: Performed By: #### B POSTING SPECIALIST #### [facility] [address] [address] [address] Erasmo Smith GRAM POSITIVE COCCI MANY Normal [facility] Comment on above: Performed By: #### B POSTING SPECIALIST #### [facility] [address] [place] [address] Dr. Erasmo Smith WBC (Bld) [#/Vol] 10*3/uL Normal [facility] Comment on above: Performed By: #### B POSTING SPECIALIST #### [facility] [address] [address] [address] Erasmo Smith SPUTUM CULTUREon 03-01-2022 Epithelial cells LM Ql (Urine sed) Few Normal [facility] Comment on above: Performed By: #### C XSPTUM ####[facility] [address] [place], [place] [address]Dr. Erasmo Smith Gram Stain Evaluation Comment Normal [facility] Comment on above: Result Comment: This specimen is of good quality and is acceptable for routine bacterial culture. Performed By: #### C XSPTUM ####[facility] [address] [place], [place] [id number]. Erasmo Smith Lower Respiratory Culture Final report Normal [facility] Comment on above: Performed By: #### C XSPTUM ####[facility] [address] [address]Dr. Erasmo Smith Result 1 Comment Normal [facility] Comment on above: Result Comment: Few gram positive cocci Performed By: #### C XSPTUM ####[facility] [address] [address]Dr. Erasmo Smith Result Comment: Rout ine respiratory adria Result 2 Normal [facility] Comment on above: Performed By: #### C XSPTUM ####[facility] [address] [address]Dr. Erasmo Smith Result 3 Normal [facility] Comment on above: Performed By: #### C XSPTUM ####[facility] [address] [place], [place] [address]Dr. Erasmo Smith Result 4 Normal [facility] Comment on above: Performed By: #### C XSPTUM ####[facility] [address] [address]Dr. Erasmo Smith White Blood Cells Few Normal [facility] Comment on above: Performed By: #### C XSPTUM ####[facility] [address] [place], [place] [address]Dr. Erasmo Smith BNPon 02-24-2022 Natriuretic peptide B (Bld) [Mass/Vol] 319.0 pg/mL Normal <=900.0 [facility] Comment on above: Performed By: #### B POSTING SPECIALIST #### [facility] [address] [address] [address] Erasmo Smith CBC AUTO DIFFon 02-24-2022 BASO # 0.1 103/ul Normal 0.0-0.1 [facility] Comment on above: Performed By: #### C MREP #### [facility] [address] [address] [address] Erasmo Smith Basophils/100 WBC (Bld) 0.5 % Normal 0.2-2.0 [facility] Comment on above: Performed By: #### C MREP #### [facility] [address] [address] [address] Erasmo Smith EO # 0.3 103/ul Normal 0.0-0.7 [facility] Comment on above: Performed By: #### C MREP #### [facility] [address] [place] [address] Dr. Erasmo Smith Eosinophils/100 WBC (Bld) 3.1 % Normal 0.9-7.0 [facility] Comment on above: Performed By: #### C MREP #### [facility] [address] [place] [address] Dr. Erasmo Smith Erythrocyte distribution width (RBC) [Ratio] 15.1 % Critically high 11.0-15.0 [facility] Comment on above: Performed By: #### C MREP #### [facility] [address] [place] [address] Dr. Erasmo Smith Hematocrit (Bld) [Volume fraction] 33.9 % Critically low 36.0-48.0 [facility] Comment on above: Performed By: #### C MREP #### [facility] [address] [place] [address] Dr. Erasmo Smith Hemoglobin (Bld) [Mass/Vol] 10.7 g/dL Critically low 12.0-16.0 [facility] Comment on above: Performed By: #### C MREP #### [facility] [address] [place] [address] Dr. Erasmo Smith IG # 0.03 10e3/ul Normal 0.00-0.03 [facility] Comment on above: Performed By: #### C MREP #### [facility] [address] [place] [address] Dr. Erasmo Smith IG % 0.3 % Normal 0.0-0.5 [facility] Comment on above: Performed By: #### C MREP #### [facility] [address] [place] [address] Dr. Erasmo Smith LYMPH # 2.8 103/ul Normal 1.2-3.8 [facility] Comment on above: Performed By: #### C MREP #### [facility] [address] [address] [address] Erasmo Smith Lymphocytes/100 WBC (Bld) 30.6 % Normal 20.5-60.0 [facility] Comment on above: Performed By: #### C MREP #### [facility] [address] [address] [address] Erasmo Smith MANUAL DIFF REQ NO Normal [facility] Comment on above: Performed By: #### C MREP #### [facility] [address] [address] [address] Erasmo Smith MCH (RBC) [Entitic mass] 26.9 pg Normal 26.7-34.0 [facility] Comment on above: Performed By: #### C MREP #### [facility] [address] [place] [address] Dr. Erasmo Smith MCHC (RBC) [Mass/Vol] 31.6 g/dL Normal 29.9-35.2 [facility] Comment on above: Performed By: #### C MREP #### [facility] [address] [place] [address] Dr. Erasmo Smith MCV (RBC) [Entitic vol] 85.2 fL Normal 81.0-99.0 [facility] Comment on above: Performed By: #### C MREP #### [facility] [address] [place] [address] Dr. Erasmo Smith MONO # 0.7 103/ul Normal 0.3-0.8 [facility] Comment on above: Performed By: #### C MREP #### [facility] [address] [place] [address] Dr. Erasmo Smith Monocytes/100 WBC (Bld) 7.9 % Normal 1.7-12.0 [facility] Comment on above: Performed By: #### C MREP #### [facility] [address] [place] [address] Dr. Erasmo Smith NEUT # 5.3 103/ul Normal 1.4-6.5 [facility] Comment on above: Performed By: #### C MREP #### [facility] [address] [place], [place] [address] Dr. Erasmo Smith Neutrophils/100 WBC (Bld) 57.6 % Normal 43.0-75.0 [facility] Comment on above: Performed By: #### C MREP #### [facility] [address] [address] [address] Erasmo Smith Platelet mean volume (Bld) [Entitic vol] 9.0 fL Critically low 9.5-13.5 [facility] Comment on above: Performed By: #### C MREP #### [facility] [address] [address] [address] Erasmo Smith PLT 249 103/ul Normal 150-450 [facility] Comment on above: Performed By: #### C MREP #### [facility] [address] [address] [address] Erasmo Smith RBC 3.98 106/ul Critically low 4.20-5.40 [facility] Comment on above: Performed By: #### C MREP #### [facility] [address] [address] [address] Erasmo Smith WBC 9.1 103/ul Normal 4.0-11.0 [facility] Comment on above: Performed By: #### C MREP #### [facility] [address] [address] [address] Erasmo Smith CTA CHEST WO W [...] PAULA BROWN Date: 2022-02-24 18:24 Normal [facility] D-DIMERon 02-24-2022 D-DIMER 1.36 mg/L FEU Critically high <=0.59 [facility] Comment on above: Performed By: #### D DIM #### [facility] [address] [place] [address] Dr. Erasmo Smith D-DIMER COMMENTS SEE BELOW Normal [facility] Comment on above: Result Comment: [...] hospitalization. Performed By: #### D DIM #### [facility] [address] [address] [address] Erasmo Smith PROF 14(COMP METB)on 022 Albumin [Mass/Vol] 3.6 g/dL Normal 3.4-5.0 [facility] Comment on above: Performed By: #### C MREP #### [facility] [address] [address] [address] Erasmo Smith Albumin/Globulin [Mass ratio] 0.8 {ratio} Normal [facility] Comment on above: Performed By: #### C MREP #### [facility] [address] [address] [address] Erasmo Smith ALP [Catalytic activity/Vol] 95 U/L Normal 46-116 [facility] Comment on above: Performed By: #### C MREP #### [facility] [address] [address] [address] Erasmo Smith ALT [Catalytic activity/Vol] 45 U/L Normal 14-59 [facility] Comment on above: Performed By: #### C MREP #### [facility] [address] [address] [address] Erasmo Smith Anion gap [Moles/Vol] 15.9 mmol/L Normal [facility] Comment on above: Performed By: #### C MREP #### [facility] [address] [place] [address] Dr. Erasmo Smith AST [Catalytic activity/Vol] 33 U/L Normal 15-37 [facility] Comment on above: Performed By: #### C MREP #### [facility] [address] [place] [address] Dr. Erasmo Smith Bilirubin [Mass/Vol] 0.5 mg/dL Normal 0.2-1.0 [facility] Comment on above: Performed By: #### C MREP #### [facility] [address] [place] [address] Dr. Erasmo Smith Calcium [Mass/Vol] 9.1 mg/dL Normal 8.5-10.1 [facility] Comment on above: Performed By: #### C MREP #### [facility] [address] [place] [address] Dr. Erasmo Smith Chloride [Moles/Vol] 103 mmol/L Normal 98-107 [facility] Comment on above: Performed By: #### C MREP #### [facility] [address] [place] [address] Dr. Erasmo Smith CO2 [Moles/Vol] 25.1 mmol/L Normal 21.0-32.0 [facility] Comment on above: Performed By: #### C MREP #### [facility] [address] [address] [address] Erasmo Smith Creatinine [Mass/Vol] 0.77 mg/dL Normal 0.55-1.02 [facility] Comment on above: Performed By: #### C MREP #### [facility] [address] [address] [address] Erasmo Smith EGFR-AF ETHIOPIAN >60 Normal >=[address] [facility] Comment on above: Performed By: #### C MREP #### [facility] [address] [address] [address] Erasmo Smith EGFR-NON AF ETHIOPIAN >60 Normal >=60 [facility] Comment on above: Performed By: #### C MREP #### [facility] [address] [place] [address] Dr. Erasmo Smith Globulin (S) [Mass/Vol] 4.3 g/dL Normal [facility] Comment on above: Performed By: #### C MREP #### [facility] [address] [place] [address] Dr. Erasmo Smith Glucose [Mass/Vol] 92 mg/dL Normal 74-106 [facility] Comment on above: Performed By: #### C MREP #### [facility] [address] [place] [address] Dr. Erasmo Smith Potassium [Moles/Vol] 4.0 mmol/L Normal 3.5-5.1 [facility] Comment on above: Performed By: #### C MREP #### [facility] [address] [place] [address] Dr. Erasmo Smith Protein [Mass/Vol] 7.9 g/dL Normal 6.4-8.2 [facility] Comment on above: Performed By: #### C MREP #### [facility] [address] [place] [address] Dr. Erasmo Smith Sodium [Moles/Vol] 140 mmol/L Normal 136-145 [facility] Comment on above: Performed By: #### C MREP #### [facility] [address] [place] [address] Dr. Erasmo Smith Urea nitrogen [Mass/Vol] 17.0 mg/dL Normal 7.0-18.0 [facility] Comment on above: Performed By: #### C MREP #### [facility] [address] [address] [address] Erasmo Smith Urea nitrogen/Creatinine [Mass ratio] 22.1 mg/mg Normal [facility] Comment on above: Performed By: #### C MREP #### [facility] [address] [address] [address] Erasmo Smith PROTIMEon 02-24-2022 INR Coag (PPP) [Relative time] 2.28 {INR} Normal [facility] Comment on above: Performed By: #### P T, PTT ####[facility] [address] [address]Dr. Erasmo Smith INR GUIDELINES SEE BELOW Normal [facility] Comment on above: Result Comment: ABNER RED INR: 2.0 - 3.0 CONDITIONS NOT LISTED BELOW 2.5 - 3.5 FOR PROSTHETIC HEART VALVE REPLACEMENT 2.5 - 3.5 RECURRENT THROMBOSIS Performed By: #### P T, PTT ####[facility] [address] [address]Dr. Erasmo Smith PT Coag (PPP) [Time] 23.3 s Critically high 9.0-11.6 [facility] Comment on above: Performed By: #### P T, PTT ####[facility] [address] [address]Dr. Erasmo Smith PTTon 02-24-2022 aPTT Coag (Bld) [Time] 34.7 s Normal 22.3-36.2 [facility] Comment on above: Performed By: #### P T, PTT ####[facility] [address] [address]Dr. Erasmo Smith TROPONIN, HIGH SENSITIVITYon 02-24-2022 HSTROP 6.6 pg/mL Normal 4.0-51.3 [facility] Comment on above: Result Comment: CUT- OFF POINTS HAVE BEEN ESTABLISHED BASED ON THE FOURTH UNIVERSAL DEFINITIONS OF MYOCARDIAL INFARCTION. THE UPPER REFERENCE LIMIT (URL) OF TROPONIN, DEFINED THE 99TH PERCENTILE OF cTnI DISTRIBUTION IN A REFERENCE POPULATION, HAS BEEN CONFIRMED THE DECISION THRESHOLD FOR ND DIAGNOSIS. Performed By: #### C MREP #### [facility] [address] [place], [place] [address] Dr. Erasmo Smith PROTHROMBIN TIMEon INR Coag (PPP) [Relative time] 1.2 {INR} High 0.86-1.16 [facility] Comment on above: Result Comment: INR Theraputic Range: 2.0-3.5 Performed at [facility] [address] [place] [id number] PT Coag (PPP) [Time] 12.7 s Normal 9.3-12.7 [facility] ANTICOAGULANT COUMADIN Normal [facility] Vital Signs Date Time Vital Sign Value Performing Clinician Facility 05-22-2024 13:17-0400 Body height 149.9 cm [employer] Work Phone: [facility] 05-22-2024 13:17-0400 Body mass index (BMI) [Ratio] 44.43 kg/m2 [employer] Work Phone: [facility] 05-22-2024 13:17-040 Body weight 99.79 kg [employer] Work Phone: [facility] 03-02-2024 11:51-0400 Blood Pressure Location [facility] 03-02-2024 11:51-0400 Diastolic blood pressure 75 mm[Hg] [facility]ga ALEXANDER [facility] [facility] 03-02-2024 11:51-0400 Heart rate 71 /min Ortega PARKL [facility] 03-02-2024 11:51-0400 Respiratory rate 16 /min Ortega PARKL [facility] 03-02-2024 11:51-0400 Systolic blood pressure 118 mm[Hg] Ortega ALEXANDER [facility] General Surgery [facility] 10-07-2021 16:00-0500 Body height 146.69 cm Hong Nevarez Other [employer] Other 10-07-2021 16:00-0500 Body mass index (BMI) [Ratio] 51.01 kg/m2 Hong Nevarez Other [employer] Other 10-07-2021 16:00-0500 Body weight 109.77 kg Hong Nevarez Other [employer] Other 08-26-2021 15:15-0500 Body height 146.69 cm Hong Nevarez Other [employer] Other 08-26-2021 15:15-0500 Body mass index (BMI) [Ratio] 51.07 kg/m2 Hong Nevarez Other [employer] Other 08-26-2021 15:15-0500 Body weight 109.91 kg Hong Nevarez Other [employer] Other Encounters Encounter Date Encounter Type Care [...] encounter procedure MD Shaikh Denis Work Phone: [facility] Med [facility] [place] Work Phone: Start: 05-02-2024 End: 05-02-2024 ambulatory MD Shaikh Denis Work Phone: [facility] Work Phone: Start: 04-16-2024 End: 04-16-2024 ambulatory PEDRO PABLO CRUZ Not Available Start: 04-16-2024 End: 04-16-2024 ambulatory Miguel Murphy MD Facility:[facility] Start: 04-11-2024 End: 04-11-2024 ambulatory SHAIKH CIRA Not Available Start: 04-10-2024 End: 04-10-2024 Patient encounter procedure MD Shaikh Denis Work Phone: [facility] [place] Work Phone: Start: 04-10-2024 End: 04-10-2024 ambulatory MD Shaikh Denis Work Phone: [facility] Work Phone: Start: 04-02-2024 End: 04-02-2024 ambulatory Miguel Murphy MD Facility:[facility] Start: 03-29-2024 End: 03-29-2024 Patient encounter procedure MD Shaikh Denis Work Phone: [facility]Pac[facility] Check Start: 03-29-2024 End: 03-29-2024 ambulatory MD Shaikh Denis Work Phone: [facility] Work Phone: Start: 03-12-2024 End: 03-12-2024 ambulatory SHAIKH CIRA Not Available Start: 03-07-2024 End: 03-07-2024 ambulatory Ortega ALEXANDER Facility::[id number] Start: 03-02-2024 End: 03-02-2024 ambulatory Ortega ALEXANDER Facility:[facility] Start: 03-02-2024 End: 03-02-2024 Patient encounter procedure Ortega ALEXANDER [facility] General [facility] Start: 03-01-2024 ambulatory Ortega XAVIERMariah Facility:[facility] Start: 02-27-2024 End: 02-27-2024 ambulatory SHAIKH CIRA Not Available Start: 01-17-2024 End: 01-17-2024 ambulatory [facility] Start: 12-29-2023 End: 12-29-2023 ambulatory SHAIKH CIRA Not Available Start: 12-27-2023 End: 12-27-2023 ambulatory [facility] Start: 12-26-2023 End: 12-26-2023 ambulatory Miguel Murphy MD Facility:[facility] Start: 12-05-2023 End: 12-05-2023 ambulatory Miguel Murphy MD Facility:[facility] Start: 11-16-2023 End: 11-16-2023 ambulatory Shaikh Cira Facility:[facility] Start: 11-07-2023 End: 11-07-2023 ambulatory SHAIKH CIRA Not Available Start: 10-17-2023 Cristobal Denis MD Work Phone: [facility] Start: 10-17-2023 Cristobal Denis MD Work Phone: [facility] Start: 10-17-2023 End: 10-17-2023 ambulatory SHAIKH CIRA Not Available Start: 10-11-2023 End: 10-11-2023 ambulatory MD Shaikh Denis Work Phone: [facility] Work Phone: Start: 10-11-2023 End: 10-11-2023 Patient encounter procedure MD Shaikh Denis Work Phone: [facility]MRI [facility] [place] Work Phone: Start: 09-08-2023 End: 09-08-2023 Patient encounter procedure MD Shaikh Denis Work Phone: [facility]Pac[facility] Check Start: 09-08-2023 End: 09-08-2023 ambulatory MD Shaikh Denis Work Phone: [facility] Work Phone: Start: 09-06-2023 End: 09-06-2023 ambulatory SHAIKH CIRA Not Available Start: 09-06-2023 Patient encounter procedure Shaikh Cira CUBA Work Phone: [facility] Start: 07-08-2023 End: 07-08-2023 ambulatory [facility] Start: 07-05-2023 End: 07-05-2023 ambulatory [facility] Start: 01-31-2023 End: 02-01-2023 ambulatory ANDRIUS [...] Facility:[facility] Start: 07-13-2022 End: 08-11-2022 ambulatory SHAIKH Kmyberly DENIS Facility:[facility] Start: 07-12-2022 End: 07-13-2022 ambulatory [...] 10-07-2021 End: 10-07-2021 ambulatory Hong Nevarez Other [employer] Other Start: 10-07-2021 Office outpatient visit 15 minutes Hong Nevarez [facility] Start: 08-26-2021 End: 08-26-2021 ambulatory Hong Nevarez Other [employer] Other Start: 08-26-2021 Office outpatient ne w 45 minutes Hong Nevarez [facility] Start: 10-11-2020 End: 10-13-2020 Evaluation and management of inpatient ZANE MAYNOR Facility:[facility] Procedures Date Procedure Procedure Detail Performing [...] above: 12/21/ mild CAD Colonoscopy Ortega ALEXANDER [facility] Comment on above: 2012 repeat 10 years Ligation of fallopian tube [employer] Repair of musculoten dinous cuff of shoulder [employer]ga [employer] Comment on above: right Total abdominal hyst erectomy with bilateral salpingo-oophorectomy [employer]ga [employer] Plan of Treatment Date Care Activity Detail Author Start: 09-12-2027 Screening for malign ant neoplasm of colon [facility] Start: 09-06-2024 Medicare Annual Well ness (AWV) Medicare Annual Wellness (AWV) [facility] Start: 05-22-2024 End: 08-21-2024 C reactive protein [Mass/volume] in Serum or Plasma C-REACTIVE PROTEIN Lab Routine 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) Expected: 05/22/2024, Expires: 08/21/2024 [facility] Comment on above: Expected: 05/22/2024 , Expires: 08/21/2024 Start: 05-22-2024 End: 08-21-2024 CBC W Auto Differential panel - Blood COMPLETE BLOOD COUNT AND DIFFERENTIAL Lab Routine 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) Expected: 05/22/2024, Expires: 08/21/2024 [facility] Comment on above: Expected: 05/22/2024 , Expires: 08/21/2024 Start: 05-22-2024 End: 08-21-2024 Erythrocyte sedimentation rate SEDIMENTATION RATE, WESTERGREN Lab Routine 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) Expected: 05/22/2024, Expires: 08/21/2024 [facility] Comment on above: Expected: 05/22/2024 , Expires: 08/21/2024 Start: 05-13-2024 Covid-19 Vaccine () Covid-19 Vaccine () [facility] Start: 05-13-2024 Influenza vaccination Influenza Vacc ine (#1) [facility] Start: 11-07-2023 End: 11-07-2023 Patient encounter procedure 11/07/2023 2:30 PM EST Office Visit [facility] [address] [place] [address] Shaikh Denis MD [address] [place] [id number] [facility] Start: 10-17-2023 End: 10-17-2023 Patient encounter procedure 10/17/2023 10:15 AM EST Office Visit [facility] [address] [place] [address] Shaikh Denis MD [address] [place] [address] Arrived [facility] Comment on above: Arrived Start: 09-12-2023 Advance Directive Discussion Advance Directive Discussion [facility] Start: 11-30-2012 Screening for osteoporosis Bone Density Screening [facility] Start: 11-30-1997 Shingrix Vaccine (1 of 2) Shingrix Vaccine (1 of 2) [facility] Start: 11-30-1992 Diabetes Screening Diabetes Screenin g [facility] Start: 11-30-1966 Urine microalbumin profile DTaP,Tdap,Td Vaccine (1 - Tdap) [facility] Start: 11-30-1965 Anxiety Screening Anxiety Screening [facility] Start: 11-30-1965 Depression Screening Depression Scre ening [facility] Start: 11-30-1965 Hepatitis C screening Hepatitis C Sc deirdre [facility] Start: 1945 Screening for malign ant neoplasm of colon [facility] End: 06-21-2025 CT Shoulder - left WO contrast CT SHOULDER WO IVCON LEFT Radiology Routine 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) 1 Occurrences starting 05/22/2024 until 06/21/2025 [facility] Work Phone: Comment on above: 1 Occurrences starti ng 05/22/2024 until 06/21/2025 Immunizations Immunization Date Immunization Notes Care Provider Fa jannette 08-25-2023 influenza virus vacc ine, unspecified formulation Ortega NILL [facility] 07-08-2022 influenza virus vacc ine, unspecified formulation Ortega NILL [facility] 08-20-2021 influenza virus vacc ine, unspecified formulation Ortega NILL [facility] 08-20-2021 pneumococcal polysaccharide vaccine, 23 valent Ortega NILL [facility] 11-18-2020 SARS-CoV-2 (COVID-19 ) mRNA-1273 vaccine Ortega NILL [facility] 10-20-2020 SARS-CoV-2 (COVID-19 ) mRNA-1273 vaccine Ortega NILL [facility] 08-04-2020 influenza virus vacc ine, unspecified formulation Ortega NILL [facility] 08-04-2020 pneumococcal conjuga te vaccine, 13 valent Ortega NILL [facility] 08-06-2019 influenza virus vacc ine, unspecified formulation Ortega NILL [facility] 07-05-2017 influenza virus vacc ine, unspecified formulation Ortega NILL [facility] 07-05-2017 pneumococcal conjuga te vaccine, 13 valent Ortega NILL [facility] 06-29-2016 influenza virus vacc ine, unspecified formulation Ortega NILL [facility] 06-25-2015 influenza virus vacc ine, unspecified formulation Ortega PARKL [facility] 06-12-2015 influenza virus vacc ine, unspecified formulation Ortega PARKL [facility] 07-12-2014 influenza virus vacc ine, unspecified formulation Ortega NILL [facility] 08-07-2013 influenza virus vacc ine, unspecified formulation Ortega NILL [facility] Payers Date Payer Category Payer Private Health Insurance 2023 Medicare [id number] 2023 Self-pay [id number] 2023 Managed Care HMO (unspecified) [employer] A[employer] [id number] 2023-Present [address] [place] [address] O [id number]. [id number] 2007 Medicare [id number] 1.13.693.2. [id number] 1959 Medicare [id number] 1959 Private Health Insurance [facility] [id number] 1947 Unknown [id number] 2.16.840.1.449814.3.579.2. 647 1947 Unknown [id number] 2.16.840.1.439223.3.579.2. 593 1947 Unknown [id number] 2.16.840.1.989501.3.579.2. 593 1947 Unknown [id number] 2.16.840.1.990356.3.579.2. 593 1947 Unknown [id number] 2.16.840.1.554597.3.579.2. 593 1947 Unknown [id number] 2.16.840.1.824494.3.579.2. 593 1947 Unknown [id number] 2.16.840.1.486719.3.579.2. 593 1947 Unknown [id number] 2.16.840.1.177868.3.579.2. 593 1947 Unknown [id number] 2.16.840.1.643010.3.579.2. 593 1947 Unknown [id number] 2.16.840.1.025402.3.579.2. 593 1947 Unknown [id number] 2.16.840.1.591200.3.579.2. 593 1947 Unknown [id number] 2.16.840.1.739414.3.579.2. 593 1947 Unknown [id number] 2.16.840.1.278349.3.579.2. 593 1947 Unknown [id number] 2.16.840.1.489076.3.579.2. 593 1947 Unknown [id number] 2.16.840.1.740610.3.579.2. 593 1947 Unknown [id number] 2.16.840.1.876766.3.579.2. 593 1947 Unknown [id number] 2.16.840.1.634322.3.579.2. 593 1947 Unknown [id number] 2.16.840.1.251755.3.579.2. 593 1947 Unknown [id number] 2.16.840.1.653516.3.579.2. 593 1947 Unknown [id number] 2.16.840.1.039155.3.579.2. 593 1947 Unknown [id number] 2.16.840.1.405954.3.579.2. 593 1947 Unknown [id number] 2.16.840.1.907386.3.579.2. 593 1947 Unknown [id number] 2.16.840.1.442160.3.579.2. 593 1947 Unknown [id number] 2.16.840.1.346746.3.579.2. 593 1947 Unknown [id number] 2.16.840.1.334850.3.579.2. 593 1947 Unknown [id number] 2.16.840.1.919697.3.579.2. 593 1947 Unknown [id number] 2.16.840.1.190136.3.579.2. 593 1947 Unknown [id number] 2.16.840.1.193395.3.579.2. 727 1947 Unknown [id number] 2.16.840.1.374008.3.579.2. 727 1947 Unknown [id number] 2.16.840.1.148063.3.579.2. 196 1947 Unknown [id number] 2.16.840.1.055935.3.579.2. 196 1947 Unknown [id number] 2.16.840.1.874252.3.579.2. 196 1947 Unknown [id number] 2.16.840.1.681577.3.579.2. 196 1947 Unknown [id number] 2.16.840.1.304865.3.579.2. 1259 1947 Unknown [id number] 2.16.840.1.432990.3.579.2. 1259 1947 Unknown [id number] 2.16.840.1.744869.3.579.2. 1258 1947 Unknown [id number] 2..840.1.363351.3.579.2. 1258 1947 Unknown [id number] 2.16.840.1.876756.3.579.2. 1258 1947 Unknown [id number] 2.840.1.891189.3.579.2. 1258 1947 Unknown [id number] 2..840.1.724330.3.579.2. 1258 1947 Unknown [id number] 2.840.1.272343.3.579.2. 1258 1947 Unknown [id number] 2.840.1.499855.3.579.2. 1258 1947 Unknown [id number] 2.840.1.376303.3.579.2. 1258 1947 Unknown [id number] 2.840.1.355783.3.579.2. 1259 Medicare Medicare Outpatient [id number] [id number] Unknown [place] [id number] Unknown [id number] 2.840.1.292319.3.579.2. 531 Unknown [id number] 2.840.1.653327.3.579.2. 531 Unknown [id number] 2.840.1.056419.3.579.2. 531 Unknown [id number] 2.16840.1.620445.3.579.2. 531 Unknown [id number] 2.16840.1.694795.3.579.2. 531 Unknown [id number] 2.840.1.354796.3.579.2. 531 Social History Date Type Detail Facility Start: 08-30-2023 End: 05-22-2024 Sex Assigned At [facility] Start: 1945 Sex Assigned At Female [facility] Start: 08-18-2023 End: 03-02-2024 Tobacco smoking [...] Healthcare How often do you att end adventism or bahai services? Patient refused [facility] Do you belong to any clubs or organizations such as adventism groups, unions, fraternal or athletic groups, or [...] smoking status NHIS Never smoked tobacco (finding) [facility] Start: 05-22-2024 Tobacco use and exposure Smoke less tobacco non-user [facility] Start: 05-22-2024 Alcoholic beverage intake Curr ent drinker of alcohol (finding) [facility] Functional Status Date Assessment Result Facility 03-02-2024 Functional Status N/A [facility] Clinical Notes 08-26-2021 to 05-22-2024 Boo Buchanan PA-C - 05/22/2024 1:39 PM Ketty Meyersa, RT(R) - 05/22/2024 1:25 PM EDT Note Date & Type Note Facility 05-22-2024 Note HNO ID: [id number] Author: BOO BUCHANAN PA-C Service: ? Author Type: [employer] Sales Consultant Type: Progress Notes Filed: 05/22/2024 13:53 Note [...] She was recommended for second opinion at [facility]. She also had a CRP and [...] No date: COPD (chronic obstructive pulmonary disease) ([facility]) SOCIAL HISTORY: Tobacco Use: Never EXAMINATION: GENERAL: [...] 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 ([facility]) T84.84XA CT SHOULDER WO IVCON LEFT Z96.612 [...] of the hardware. Bone scan performed at [facility] to be uploaded to the system. Boo Buchanan (more content not included)... [facility] 05-22-2024 History of Present illness Narrative Images [...] She was recommended for second opinion at [facility]. She also had a CRP and [...] No date: COPD (chronic obstructive pulmonary disease) ([facility]) SOCIAL HISTORY: Tobacco Use: Never EXAMINATION: GENERAL: [...] 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 ([facility]) T84.84XA CT SHOULDER WO IVCON LEFT Z96.612 [...] of the hardware. Bone scan performed at [facility] to be uploaded to the system. Boo Buchanan PA-C documented in this encounter [facility] 05-22-2024 Note HNO ID: [id number] Author: JYOTHI CRUZ RT(R) Service: ? Author [...] PATIENT PRESENTS WITH AN IMPLANTABLE OR ATTACHED TRADE MARKER: No RADIOLOGY DEPARTMENT: General X-ray: Exam(s) Completed: Upper Extremity X-Ray(s): Shoulder, AP / TRUE AP / AXILLARY / SUPRA OUTLET left PERIPHERAL IV DATA: Not applicable SIGNED BY: RT Chaparrita(R) May 22, 2024 1:25 PM [facility] 05-22-2024 History of Present illness Narrative Radiology [...] PATIENT PRESENTS WITH AN IMPLANTABLE OR ATTACHED TRADE MARKER: No RADIOLOGY DEPARTMENT: General X-ray: Exam(s) Completed: Upper Extremity X-Ray(s): Shoulder, AP / TRUE AP / AXILLARY / SUPRA OUTLET left PERIPHERAL IV DATA: Not applicable SIGNED BY: RT Chaparrita(R) May 22, 2024 1:25 PM documented in this encounter [facility] 03-02-2024 Note Chief Complaint consultation for anemia HPI Staff 78 year old female presents on consultation from [facility] for anemia. Labs completed yesterday with [...] PSVT, spinal stenosis, cervical radiculopathy; referred from [facility] ED for anemia, low iron, [...] (paroxysmal supraventricular t (more content not included)... [facility] Comment on above: Result Comment: Elec [...] All other systems reviewed and are negative. [facility] 01-17-2024 Note Cardiovascular Medic [facility] SUBJECTIVE Chief Complaint Patient presents with Atrial Fibrillation Breann Starks is a 78 y.o. female here for follow-up. HPI PMHx: A-fib, atrial tachycardia s/p ablation 2005, sick sinus syndrome s/p PPM 10/2020 dual-chamber [employer], COPD, mild CAD s/p cardiac cath 2010, SHAWANDA noncompliant with mask, and obesity. She has been doing well since last seen. No significant changes. Denies c/o CP, dyspnea, orthopnea, PND, LE edema, dizziness/LH, palpitations, syncope. Patient Active Problem List Diagnosis Disorder of bursae of shoulder region Chronic obstructive lung disease (CMS/HCC) Atherosclerosis of [place] coronary artery of [place] heart without angina pectoris Diaphragmatic hernia Edema [...] Final Monocytes Absolu (more content not included)... [facility] 07-05-2023 Note [facility] Electrophysiology Consult Note [...] sick sinus syndrome s/p PPM 10/2020 dual-chamber [employer], COPD, mild CAD s/p cardiac cath [...] could not afford DOAC. Patient underwent dual-chamber [employer] pacemaker placement on 10/13/2020. On subsequent [...] both knees Hypocalcemi (more content not included)... [facility] 10-07-2021 Evaluation note Encounter Date Diagnosis Assessment Notes Sep, LOJA (nonalcoholic steatohepatitis ) (ICD-10 - K75.81) OBTAIN FIBROSURE RESULTS FROM [facility] RE[facility] ON RESULTS PT ENCOURAGED WEIGHT LOSS RTO ONE YEAR WITH LABS ANNUALLY Sep, Unspecified cirrhosis of liver (ICD-10 - K74.60) [facility] Other 12-15-2021 Evaluation note* Encounter Date Diagnosis Assessment Notes Treatment Notes Treatment Clinical Notes Aug, Nonalcoholic steatohepatitis (LOJA) (ICD-10 - K75.81) RTO 6-8 WEEKS 15 Aug, 2021 Unspecified cirrhosi s of liver (ICD-10 - K74.60) Aug, Morbid obesity (ICD- 10 - E66.01) [employer] [facility] Other Evaluation + Plan note No data available for this section [facility] Evaluation noteNo assessment information available [facility] Work Phone: Evaluation note* Diagnosis 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 Progress note No data available for this section [facility] Reason for referral (narrative)* Diagnostic Procedure Only (Routine) - Closed Specialty Diagnoses / Procedures Referred By Contac t Referred To Contact XR IMAGING Diagnoses Left shoulder pain, unspecified chronicity Procedures XR SHOULDER ORTHO 4V AP/TRUE AP/LAT/OUTLET LEFT RADEX SHOULDER COMPLETE MINIMUM 2 VIEWS Boo Buchanan PA-C [address] [facility] [address] [place] [address] Referral ID Status Reason Start Date Expiration Date V isits Requested Visits Authorized [id number] Closed Auto-Generate d Referral 05/08/2024 06/07/2025 1 1 [facility]* Diagnostic Procedure Only (Routine) - Closed Specialty Diagnoses / Procedures Referred By Millie t Referred To Contact XR IMAGING Diagnoses Left shoulder pain, unspecified chronicity Procedures XR SHOULDER ORTHO 4V AP/TRUE AP/LAT/OUTLET LEFT RADEX SHOULDER COMPLETE MINIMUM 2 VIEWS Boo Buchanan PA-C [address] [place] [address] [place] [address] Referral ID Status Reason Start Date Expiration Date V isits Requested Visits Authorized [id number] Closed Auto-Generate d Referral 05/08/2024 06/07/2025 1 1 [facility] Summary Purpose Family History No Family [...] EXTREMITY W/O CONTRAST MATERIAL Boo Buchanan PA-C [address] [place] [address] [place] [address] Referral ID Status Reason Start Date Expiration Date Visits Requested Visits Authorized [id number] New Request Auto-Generat ed Referral 05/22/2024 06/21/2025 1 1 Specialty Diagnoses / Procedures Referred By Millie egan Referred To Contact XR IMAGING Diagnoses Left shoulder pain, unspecified chronicity Procedures XR SHOULDER ORTHO 4V AP/TRUE AP/LAT/OUTLET LEFT RADEX SHOULDER COMPLETE MINIMUM 2 VIEWS Boo Buchanan PA-C [address] [facility] [place] [place] [address] [place] [address] Referral ID Status Reason Start Date Expiration Date V isits Requested Visits Authorized [id number] Closed Auto-Generate d Referral 05/08/2024 06/07/2025 1 1 Additional Source Comments INFORMATION SOURCE (unrecogn ized section and content) DATE CREATED AUTHOR 10/23/2021 [facility] DATE CREATED AUTHOR AUTHOR'S ORGANIZ ATION 01/22/2022 [facility] DATE CREATED AUTHOR AUTHOR'S ORGANIZ ATION 02/18/2023 [facility] DATE CREATED AUTHOR AUTHOR'S ORGANIZ ATION 03/08/2024 [facility] DATE CREATED AUTHOR AUTHOR'S ORGANIZ ATION 03/11/2024 [facility] DATE CREATED AUTHOR AUTHOR'S ORGANIZ ATION 04/30/2024 [facility] DATE CREATED AUTHOR AUTHOR'S ORGANIZ ATION 05/04/2024 [facility] DATE CREATED AUTHOR AUTHOR'S ORGANIZ ATION 05/11/2024 [facility] Specialists EPIC DATE CREATED AUTHOR AUTHOR'S ORGANIZ ATION 05/24/2024 [facility] REASON FOR VISIT (unrecogniz [...] Pedro Pablo Cruz PA [address] [facility] [address] [place] [address] González Alvarado MD [address] [place] [address] Referral ID Status Reason Start Date Expiration Date V isits Requested Visits Authorized [id number] Authorized 05/08/2024 09/11/2024 99 99 Care Teams [...] October 11, 2023 End: October 11, 2023 Wrapping Machine Tender Relationship Specialty Start Date End Date Shaikh [...] May 02, 2024 End: May 02, 2024 Wrapping Machine Tender Relationship Specialty Start Date End Date Luisana Johnson MD [address] [place] [id number] PCP - General 01/05/06 Pedro Pablo Cruz MD [address] [place] [id number] Referring Infectious Diseases 05/07/24 Wrapping Machine Tender Relationship Specialty Start Date End Date Luisana Johnson MD [address] [place], [facility] PCP - General 01/05/06 Pedro Pablo Cruz MD [address] [place], [place] [id number] Referring Infectious Diseases 05/07/24 Wrapping Machine Tender Relationship Specialty Start Date End Date Luisana Johnson MD [address] [place], [facility] PCP - General 01/05/06 Pedro Pablo [...] or prosecute any alcohol or drug abuse patient.[facility] HospitalIn the event this information is protected by the Federal Confidentiality of Alcohol and Drug Abuse Patient Records regulations: The Federal rules restrict any use of the information to criminally investigate or prosecute any alcohol or drug abuse patient.[facility] HospitalIn the event this information is protected by the Federal Confidentiality of Alcohol and Drug Abuse Patient Records regulations: The Federal rules restrict any use of the information to criminally investigate or prosecute any alcohol or drug abuse patient.[facility] FOR RECORDS PERTAINING TO PATIENTS WHO [...] BE BASED ON THE PRIMARY CLINICAL RECORDS. [facility] [employer] [facility]. provides no warranty or guarantee of the accuracy or completeness of information in this document.
[2024-05-31 15:46] LABS: Basophils Percent Auto 0.2 % (0.2-2.0); Eosinophils Absolute Auto 0.2 10^3/uL (0.0-0.7); Eosinophils Percent Auto 1.4 % (0.9-7.0); Hematocrit 29.8 % (36.0-48.0); Hemoglobin 9.1 g/dL (12.0-16.0); Immature Granulocytes Abs Auto 0.08 10^3/uL (0.00-0.03); Immature Granulocytes Pct Auto 0.6 % (0.0-0.5); Lymphocytes Absolute Auto 2.6 10^3/uL (1.2-3.8); Lymphocytes Percent Auto 19.2 % (20.5-60.0); Mean Corpuscular HGB Conc 30.5 g/dL (29.9-35.2); Mean Corpuscular Hemoglobin 23.2 pg (26.7-34.0); Mean Corpuscular Volume 75.8 fL (81.0-99.0); Mean Platelet Volume 8.1 fL (9.5-13.5); Monocytes Absolute Auto 0.8 10^3/uL (0.3-0.8); Monocytes Percent Auto 5.6 % (1.7-12.0); Platelet Count 338 10^3/uL (150-450); Red Blood Count 3.93 10^6/uL (4.20-5.40); Red Cell Distribution Width 18.7 % (11.0-15.0); White Blood Count 13.7 10^3/uL (4.0-11.0)
[2024-05-31 16:11] LABS: Anion Gap 7.4; BUN Creatinine Ratio 25.6; Calcium 8.5 mg/dL (8.5-10.1); Carbon Dioxide 30.2 mmol/L (21.0-32.0); Chloride 104 mmol/L (98-107); Estimated GFR (African America >60 (>=60); Estimated GFR (Non-African Ame >60 (>=60); Glucose 101 mg/dL (74-106); Potassium 3.6 mmol/L (3.5-5.1); Sodium 138 mmol/L (136-145); Troponin I High Sensitivity 8.4 pg/mL (4.0-51.3)
[2024-05-31 18:04] VITALS: BP 136/88; PULSE 76; O2SAT 98
== END 2024-05-31 18:05 | disposition home or self-care (01) ==
PROVIDERS: Emergency Provider Emergency Medicine
DX: R60.9 Edema, unspecified (principal); Z87.891 Personal history of nicotine dependence; R06.02 Shortness of breath
CPT/HCPCS: 36415; 71045; 80048; 83880; 84484; 85025; 93005; 93971; 99285

== ENCOUNTER 2024-06-26 13:32 | Outpatient (OUT) | payer MEDICARE, SELFPAY ==
--- OUTSIDE RECORDS SUMMARY | 2024-06-26 13:37 | XMS_ITS | CCD ---
Author Organization [facility] CliniSyga Care Team Providers Care Firer Powerhouse Name Role Phone ZANE MCGUIRE Admitting Unavailable YANCY HENNESSY Referring Unavailable LUISANA JOHNSON Primary Care Unavailable ZANE MCGUIRE Attending Unavailable YANCY HENNESSY Surgeon Unavailable [place] Procedure Practitioner Unavailab Hong Adler Unavailable JOHNSON ., DR LUISANA Jarquin Primary Care Unavailable JOHNSON ., DR LUISANA Jarquin Admitting Unavailable JOHNSON ., DR LUISANA Jarquin Attending Unavailable JOHNSON ., DR LUISANA Jarquin Consulting Unavailable JOHNSON ., DR LUISANA Jarquin Primary Care Unavailable CIRA, H Attending Unavailable FAWWAD, SAHU H Admitting Unavailable FAWWAD, SAHU H Admitting Unavailable CIRA, H Attending Unavailable JOHNSON ., DR LUISANA [...] ., DR LUISANA Jarquin Primary Care Unavailable DR PAULA BROWN Consulting Unavailable SAMSA ., LUIZ Admitting Unavailable [...] Unavailable ZIEBER, DR PAULA Bishop Consulting Unavailable JOHNSON ., [...] ., DR LUISANA Jarquin Primary Care Unavailable NICHOLECHIRENE .DANIELLE Consulting Unavailpriyanka jarquin RIVER ., KAYLEY Admitting Unavailable RIVER ., KAYLEY Attending Unavailable MORSE BLUFF, DR HONG Morgan Consulting Unavailable JOHNSON ., [...] ., DR LUISANA Jarquin Primary Care Unavailable [facility] Attending Unavailable SHAIK DENISWell[facility] Admitting Unavailable SAMSA ., LUIZ Admitting Unavailable SAMSA ., LUIZ Attending Unavailable SAMSA ., LUIZ Consulting Unavailable JOHNSON ., DR LUISANA Jarquin Primary Care Unavailable THANG Clement Attending Provider [phone] MD Cira [facility] Primary Care Provider [phone] THANG Clement Attending Provider Cira CUBA [facility] Provider [phone] Ortega ALEXANDER Attending Unavailable [facility] Referring Unavailable Ortega ALEXANDER Attending Unavailable MD Cira [facility] Provider [phone] DO James Jones Attending Provider Katherine CUBA, Andrius Sainz Attending Unavailable Gityroneitis , Andrius Vrenee Attending Unavailable Giedraitis , Andrius Vrenee Attending Unavailable Giedraitis , Andrius Vrenee Attending Unavailable YOLY Cruz Attending Provider [phone] [facility] Unavailable Kayley Reeder Admitting Unavailable Kayley Reeder Attending Unavailable [facility] Unavailable James Jones Admitting Unavailable James Jones Attending Unavailable [facility] Care Unavailable James Jones Admitting Unavailable James Jones Attending Unavailable [facility] Care Unavailable Pedro Pablo Cruz Admitting Unavailable Pedro Pablo Cruz Attending Unavailable [facility] Unavailable Urbano, Claire E Admitting Unavailable Urbano Claire Britton Attending Unavailable Fafrancy, Sahu Primary Care Unavailable Urbano, Claire E Admitting Unavailable [place]rbano Claire E Attending Unavailable Luisana Johnson MD Primary Care Provider [phone] Pedro Pablo Cruz MD Unavailable LUISANA JOHNSON Primary Care Unavailable BOO BUCHANAN Attending Unavailable PEDRO PABLO CRUZ Referring Unavailable LUISANA JOHNSON Primary Care Unavailable BOO BUCHANAN Referring Unavailable FAFRANCY, Attending Unavailable FAWMADHURI, SAHU Attending Unavailable FAWMADHURI, SAHU Attending Unavailable FAWMADHURI, SAHU Attending Unavailable FAFRANCY, SAHU Attending Unavailable CIRA, Attending Unavailable CIRA, Attending Unavailable PEDRO PABLO CRUZ Attending Unavailable PEDRO PABLO CRUZ Referring Unavailable JR. FRANK GEORGE C Attending Unavaila MONSTER Johnson Attending UnavailYANCY Booker Referring Unavailable YANCY HENNESSY Referring Unavailable YANCY HENNESSY Attending Unavailable YANCY HENNESSY Referring Unavailable NICANOR CANNON Attending Unavailable Wesley Long MD Primary Care Provider [phone] Rajinder BOSWELL, Monster Unavailable Allergies Allergy Classification Reported Allergen(s) Allergy Type Date of Onset Reaction(s) Facility NSAIDs (1 source) meloxicam; Translations: [Mobic] Drug Allergy [facility] Repository Unclassified (1 source) No Known Medication Allergies; Translations: [No Known Medication Allergies] Propensity to adverse reactions (disorder) [facility] Repository (1 source) novacaine; Translations: [novacaine] Propensity to adverse reactions (disorder) 2 [facility] Repository (3 sources) NSAIDs Propensity to adverse reactions 4 HEART [facility] (7 sources) Adhesive agent; Translations: [adhesive] Allergy to substance 4 [facility] (4 sources) NSAIDS (Non-Steroidal Anti-Inflamma; Translations: [NSAIDS (Non-Steroidal Anti-Inflamma] Allergy to substance 4 HEART [facility] (1 source) Digoxin Drug Allergy 4 Rash [facility] Healthcare Work Phone: (1 source) Wound Dressing Adhesive Drug Allergy 4 [facility] Healthcare Medications Current Medications Medication Drug Class(es) Dates [...] pain. Active apixaban 5 mg oral tablet (9 sources) Factor Xa Inhibitor Start: 05-05-2023 End: 06-11-2024 take 1 tablet by mouth in the morning apixaban (Eliquis) 5 MG tablet Indications: Persistent atrial fibrillation (HCC) (CMS/HCC) Take 1 tablet (5 mg) by mouth in the morning and 1 tablet (5 mg) before bedtime. 180 tablet 1 12/14/2023 Active ascorbic acid 100 mg oral tablet (2 sources) Vitamin C take 1 tablet by mouth in the morning Ascorbic Acid (vitamin C) 100 MG tablet Take 100 mg by mouth in the morning. Active baclofen 10 mg oral tablet (4 sources) gamma-Aminobuty ofelia Acid-ergic Agonist Start: 03-01-2024 take 1 tablet by mouth three times daily baclofen 10 mg Tab 10 mg = 1 tab(s), Oral, TID, Refills(s) 0 Start Date: 03/01/24 Status: Ordered 120 actuat budesonide 0.16 mg/actuat / formoterol fumarate 0.0045 mg/actuat metered dose inhaler (2 sources) Corticosteroid, beta2-Adrenergi c Agonist take 2 puff(s) by inhalation twice [...] Status: Ordered cholecalciferol 0.125 mg oral tablet (7 sources) Vitamin D Start: 01-30-2024 take 1 tablet by mouth once daily Natural Vitamin D-3 125 MCG (5000 UT) tablet Indications: Vitamin D deficiency TAKE 1 TABLET BY MOUTH EVERY DAY 90 tablet 1 01/30/2024 Active Start: 11-16-2023 Cholecalcifero l (Vitamin D3) Active 5000 UNIT PO November 16, 2023 1:00am take 1 tablet by dirk th once daily in the morning Cholecalciferol, Vitamin D3, 125 mcg (5,000 unit) cap Take 1 tablet by mouth every morning. Active ferrous sulfate 325 mg delayed release oral tablet (4 sources) Start: 03-21-2024 End: 06-19-2024 take 1 tablet by mouth at mealtime ferrous sulfate 325 (65 Fe) MG EC tablet Indications: Iron deficiency anemia due to chronic blood loss Take 1 tablet (325 mg) by mouth in the morning. Take with meals. Do not crush, chew, or split.. 90 tablet 03/21/2024 06/19/2024 Active flecainide acetate 100 mg oral tablet (11 sources) Antiarrhythmic Start: 03-08-2024 take 1 tablet by mouth every twelve hours flecainide (Tambocor) 100 MG tablet Take 100 mg by mouth every 12 (twelve) hours 03/08/2024 Active Start: 01-11-2023 take 1 tablet by dirk th every twelve hours flecainide (TAMBOCOR) 100 mg tablet Take 100 mg by mouth every 12 hours. 01/11/2023 Active take 1 tablet by dirk th once daily flecainide (Tambocor) 50 MG tablet Take 50 mg by mouth 1 (one) time each day 0 Active furosemide 40 mg oral tablet (5 sources) Loop Diuretic Start: 06-18-2024 take 1 tablet by mouth once daily furosemide (Lasix) 40 MG tablet Indications: Acute on chronic diastolic (congestive) heart failure (CMS/HCC) TAKE 1 TABLET BY MOUTH EVERY DAY 90 tablet 06/18/2024 Active Start: 03-21-2024 End: 06-18-2024 take 1 tablet by mouth once daily furosemide (Lasix) 40 MG tablet Indications: Acute on chronic diastolic (congestive) heart failure (CMS/HCC) Take 1 tablet (40 mg) by mouth Daily 90 tablet 03/21/2024 06/18/2024 Discontinued Start: 03-01-2024 take 1 tablet by dirk th once daily Lasix 40 mg Tab 40 [...] hrs Multiple Vitamins-Minerals (CENTRUM SILVER 50+WOMEN PO) (2 sources) take 1 tablet by mouth in the morning Multiple Vitamins-Minerals (CENTRUM SILVER 50+WOMEN PO) Take 1 tablet by mouth in the morning. Active take 1 tablet by mouth in the mo rning Multiple Vitamins-Minerals (CENTRUM SILVER 50+WOMEN PO) Take 1 tablet by mouth in the morning. 0 Active omeprazole 40 mg delayed release oral capsule (11 sources) Proton Pump Inhibitor Start: 02-15-2023 take 1 capsule by mouth once daily omeprazole (PriLOSEC) [address] capsule Indications: Peptic ulcer, site unspecified, unspecified as acute or chronic, without hemorrhage or perforation , Peptic ulcer TAKE 1 CAPSULE BY MOUTH EVERY DAY 90 capsule 1 01/11/2024 Active take [address] [facility] every twenty-four hours Omeprazole 40 MG 1 capsule Orally Once a day Active potassium chloride 10 meq extended release oral capsule (2 sources) take 1 capsule by mouth every twenty-four hours Potassium Chloride 10 MEQ 1 capsule with food Orally Once a day Active spironolactone 25 mg oral tablet (9 sources) Aldosterone Antagonist Start: take 1 tablet by mouth once daily spironolactone (Aldactone) 25 MG tablet Indications: Essential hypertension (CMS/HCC) Take 1 tablet (25 mg) by mouth Daily 90 tablet 1 12/13/2023 Active 24 hr verapamil hydrochloride 180 mg extended release oral capsule (11 sources) Calcium Channel Ozzy Start: take 1 [...] 360 mg by mouth in the morning. 02/14/2023 Active take [address] [facility] every twenty-four hours Verapamil HCl ER 360 [...] Daily, # 90 tab(s), Refills(s) 0, Pharmacy: [facility]/pharmacy #[id number], 141, cm, 01/11/23 10:30:00 EDT, Height/Length Dosing, 107.2, kg, 01/11/23 10:30:00 EDT, Weight Dosing Start Date: 02/15/23 Status: Ordered warfarin sodium 3 mg oral tablet (2 sources) Vitamin K Antagonist take 1 tablet by mouth every twenty-four hours Warfarin Sodium 3 MG 1 tablet Orally Once a day Active Problems Active Problems Problem Classification Problem Date Documented Da te Episodic/Chronic Cardiac dysrhythmias (13 sources) Unspecified atrial fibrillation; Translations: [Paroxysmal atrial fibrillation] Onset: 2 09-06-2023 Chronic Chronic obstructive pulmonary disease and bronchiectasis (10 sources) Chronic obstructive pulmonary disease, unspecified; Translations: [Centrilobular emphysema] Onset: 2 Chronic Complication of device; implant or graft (1 source) 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; Translations: [Pain due to internal orthopedic prosthetic devices, implants and grafts, initial encounter] 05-22-2024 Episodic Conduction disorders (7 sources) Presence of cardiac pacemaker; Translations: [Sinus node dysfunction] Onset: 1 03-01-2024 Chronic Congestive heart failure; nonhypertensive (4 sources) Chronic diastolic (congestive) heart failure; Translations: [Congestive heart failure] Onset: 3 03-01-2024 Chronic Coronary atherosclerosis and other heart disease (4 sources) Atherosclerotic heart disease of [place] coronary artery without angina pectoris; Translations: [Coronary atherosclerosis] Onset: 2 09-06-2023 Chronic Deficiency and other anemia (1 source) Iron deficiency anemia due to blood loss; Translations: [Iron deficiency anemia secondary to blood loss (chronic)] Onset: 4 03-12-2024 Chronic Deficiency and other anemia (2 sources) Iron deficiency anemia; Translations: [Iron deficiency anemia, unspecified] Onset: 4 Episodic Disorders of lipid metabolism (1 source) Hyperlipidemia, unspecified; Translations: [HYPERLIPIDEMIA UNSPECIFIED] Onset: 3 Chronic Esophageal disorders (2 sources) Gastroesophageal reflux disease without esophagitis; Translations: [Gastro-esophageal reflux disease without esophagitis] Onset: 4 Chronic Essential hypertension (3 sources) Essential hypertension; Translations: [Essential (primary) hypertension] Onset: 2 09-06-2023 Chronic Gastroduodenal ulcer (except hemorrhage) (5 sources) Peptic ulcer; Translations: [Peptic ulcer, site [...] Onset: 3 Episodic Nutritional deficiencies (2 sources) Vitamin D deficiency; Translations: [Vitamin D deficiency, unspecified] Onset: 3 01-10-2023 Chronic Osteoarthritis (8 sources) Arthritis of acromioclavicular joint; Translations: [Primary osteoarthritis, right shoulder] Onset: 3 09-06-2023 Chronic Other aftercare (4 sources) Encounter for therapeutic drug level monitoring; Translations: [ENC THERAPEUTC DRUG LEVL MONITORING] Onset: 3 Episodic Other aftercare (1 source) terminal operations supervisor (current) use of anticoagulants; Translations: [REPAIR COIL WINDER CURRNT USE 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] Onset: 3 Episodic Other aftercare (1 source) Other terminal operations manager (current) drug therapy; Translations: [OTH JAIL CURRENT DRUG THERAPY] Onset: 3 Episodic Other and ill-defined heart disease (1 source) Diastolic dysfunction; Translations: [Other ill-defined heart diseases] Onset: 4 02-27-2024 Chronic Other gastrointestinal disorders (1 source) Abnormal feces; [...] NEC] Onset: 3 Chronic Other liver diseases (3 sources) Steatosis of liver; Translations: [Fatty (change of) liver, not elsewhere classified] Onset: 3 09-06-2023 Chronic Comment on above: non alcoholic Other nervous system disorders (2 sources) Chronic pain; Translations: [Other chronic pain] Chronic Other non-traumatic joint disorders (3 sources) Pain [...] Chronic Other nutritional; endocrine; and metabolic disorders (3 sources) Hypocalcemia; Translations: [Hypocalcemia] Onset: 3 09-06-2023 Chronic Other nutritional; endocrine; and metabolic disorders (2 sources) Obesity; Translations: [Obesity, unspecified] Onset: 3 09-06-2023 [...] Spondylosis; intervertebral disc disorders; other back problems (16 sources) Cervical spondylosis; Translations: [Spondylosis without myelopathy [...] Date Documented Da te Episodic/Chronic Abdominal hernia (3 sources) Diaphragmatic hernia; Translations: [Diaphragmatic hernia without obstruction or gangrene] Onset: 10-17-2023 Episodic Fracture of lower limb (5 sources) Closed fracture of fifth metatarsal bone; Translations: [Displaced fracture of fifth metatarsal bone, left foot, initial encounter for closed fracture] Onset: 11-07-2023 11-07-2023 Episodic Mood disorders (2 sources) Mood disorders Onset: 09-06-2023 09-06-2023 Other circulatory disease (2 sources) Vascular insufficiency; Translations: [Venous insufficiency (chronic) (peripheral)] Onset: 03-01-2023 01-10-2023 Episodic Other connective tissue disease (2 sources) Pain of left hand; Translations: [Pain in left hand] Episodic Other connective tissue disease (2 sources) Pain in left foot; Translations: [Pain in left foot] Episodic Other connective tissue disease (3 sources) Impingement syndrome of right shoulder region; Translations: [Impingement syndrome of right shoulder] Onset: 11-07-2023 11-07-2023 Episodic Other connective tissue disease (1 source) Disorder of bursa of shoulder region; Translations: [Bursopathy, unspecified] Onset: 01-12-2012 11-07-2023 Episodic Other gastrointestinal disorders (2 sources) Dysphagia; [...] Onset: 02-25-2022 Episodic Other non-traumatic joint disorders (5 sources) Shoulder pain; Translations: [Pain in left shoulder] Onset: 10-17-2023 10-17-2023 Episodic Other non-traumatic joint disorders (2 sources) Knee pain; Translations: [Pain in left knee] Episodic Other non-traumatic joint disorders (2 sources) Pain in left knee; Translations: [Pain in joint, lower leg] Onset: 09-06-2023 09-06-2023 Episodic Residual codes; unclassified (2 sources) Edema; Translations: [Edema, unspecified] Onset: 01-12-2012 09-06-2023 Episodic Spondylosis; intervertebral disc disorders; other back problems (16 sources) Cervical radiculopathy; Translations: [Radiculopathy, cervical region] Onset: 03-01-2023 09-06-2023 Episodic Superficial injury; contusion (3 sources) Contusion of shoulder region; Translations: [Contusion of left shoulder, initial encounter] Onset: 11-07-2023 11-07-2023 Episodic Unclassified (1 source) LOW BACK PAIN, UNSPECIFIED; Translations: [LOW BACK PAIN, UNSPECIFIED] Onset: 01-28-2023 Unclassified (1 source) COUGH, UNSPECIFIED; Translations: [COUGH, UNSPECIFIED] Onset: 03-30-2022 Results Test Name Value Interpretation Reference Range Facility [facility] 05-22-2024 CNOV Office Visit (LOORRM) BREANN STARKS ([id number]) 1945 F Date Time Provider Department 05/22/24 [...] She was recommended for second opinion at [facility]. She also had a CRP and [...] No date: COPD (chronic obstructive pulmonary disease) ([facility]) SOCIAL HISTORY: Tobacco Use: Never EXAMINATION: GENERAL: [...] due to left shoulder joint prosthesis (HCC) T84.84XA CT SHOULDER WO IVCON LEFT Z96.612 [...] I ordered (more content not included)... Normal [facility] XR SHLDR 4V AP/HECTOR/LAT/OUTLE T LTon 05-22-2024 [...] other significant abnormality. IMPRESSION: EXPECTED POSTOPERATIVE APPEARANCE Certified Forklift Operator: PSCB Transcribe Date/Time: May 22 2024 2:42P Dictated by : VILMA ABREU MD This examination was interpreted and the report reviewed and electronically signed by: VILMA ABREU MD on May 22 2024 2:42PM EST [id number] Normal [facility] XR Shoulder - left 4 Viewson 05-22-2024 IMPRESSION: EXPECTED POSTOPERATIVE APPEARANCE Certified Forklift Operator: PSCB Transcribe Date/Time: May 22 2024 2:42P Dictated [...] other significant abnormality. DIVISION OF RADIOLOGY Provider, [facility] [place] - 05/22/2024 * * *Final Report* * [...] significant abnormality. IMPRESSION IMPRESSION: EXPECTED POSTOPERATIVE APPEARANCE Certified Forklift Operator: STEVE Transcribe Date/Time: May 22 2024 2:42P Dictated by : VILMA ABREU MD This examination was interpreted and the report reviewed and electronically signed by: VILMA ABREU MD on May 22 2024 2:42PM EST [facility] Radiology Study observation (narrative) [facility] XR Shoulder - left 4 ViewsOr dered By: Ccf Provider on 05-22-2024 [facility] NM bone 3 phaseon 05-02-2024 NM bone 3 phase [facility] [place] [address] Nuclear Medicine Report Signed Patient: Breann Starks MR#: [id number] 171 : 1945 Acct:[id number] Age/Sex: 78 / F ADM Date: 05/02/24 Loc: [place] Room: Type: [facility] Attending Dr: Pedro Pablo Cruz PA-C Copies to: YOLY Sanon Jeffrey S DO Ordering Provider: Pedro Pablo Cruz PA-C Date of Service: 05/02/24 NH/NH bone 3 phase: M25.512, Z96.612 Nuclear medicine [...] Etienne Rhodes M.D.05/02/2024 2:44 PM Dictation Location: [place] [address] Transcribed By: [facility] 05/02/241443 Dictated By: Eteinne Rhodes DO 05/02/241439 Signed By: 05/02/241443 Normal [facility] Lab Reportson 03-07-2024 Lab Reports [id number] #1.00TIFF Normal [facility] 36on 03-06-2024 36 Echo from 03/05/2024 reviewed [...] to her pharmacy. BMP order faxed to [facility]. Breann verbalized understanding. Normal [facility] Consent for Procedure/Surger [facility] 03-05-2024 Consent for Procedure/Surgery [id number] #1.00TIFF Normal [facility] Ambulatory Visit Summaryon 0 03-02-2024 Ambulatory Visit [...] you for choosing us for your care. [facility] ED Note-Physicianon 03-02-20 24 ED Note-Physician [id number]# 1.00TIFF [facility] Insurance Correspondenceon 0 03-02-2024 Insurance Correspondence [id number] 7#1.00TIFF [facility] Lab Reportson 03-02-2024 Lab Reports [id number] #1.00TIFF [facility] 36on 01-25-2024 36 Patient called stating ever since her device was adjusted last month she's had this weird feeling in her throat. I called Sony Asif from [employer] and he told me this feeling she's having should not be from her device. Patient informed. I suggested she see PCP for this. She verbalized understanding. Normal [facility] Office Visiton 01-17-2024 Follow-up visit [id number] Breann Starks 1945 F Date Provider Department Center 01/17/2024 NICANOR REGAN Family History Adopted: Yes Family history unknown: Yes Family Status - Relation Status Age at Mother Father Level of Service:17825 [place] OFFICE/OUTPATIENT ESTABLISHED MOD MDM 30 MIN Reason for Visit and Comments: Atrial Fibrillation [80] Normal [facility] XR lumbar spine 6V w bending on 11-16-2023 XR lumbar spine 6V w bending [facility] Main [address] [address] XRay Report Signed Patient: Breann Starks MR#: [id number] 171 : 1945 Acct:[id number] Age/Sex: 77 / F ADM Date: 11/16/23 Loc: XD Room: Type: [facility] Attending Dr: Kayley Reeder TOLL SETTLEMENT CLERK-C Copies to: THANG Calvert Ordering Provider: THANG [...] Benton Jr., D.O.11/16/2023 4:37 PM Dictation Location: [place] [address] Transcribed By: [facility] 11/16/23 1637 Dictated By: Francisco J Benton Jr, DO 11/16/23 1636 Signed By: 11/16/23 1637 Normal The [facility]placed By [facility] MR lumbar spine wo marii MR lumbar spine wo con [facility] Main [address] [address] XRay Report Signed Patient: Breann Starks MR#: [id number] 171 : 1945 Acct:[id number] Age/Sex: 77 / F ADM Date: 10/11/23 Loc: Room: Type: [facility] Attending Dr: Claire DESIR Copies to: THANG Porter Ordering Provider: THANG Porter Date of Service: 10/11/23 MR/MR lumbar spine wo con: LUMBAR RADICULPATHY ([id number]) XR/XR pre/post mri xray: LUMBAR RADICULPATHY CLINICAL [...] Eleanor Reece M.D.10/11/2023 4:10 PM Dictation Location: [place] [address] Transcribed By: [facility] 10/11/23 1610 Dictated By: Eleanor Reece MD 10/11/23 1133 Signed By: 10/11/23 1610 [facility] Office Visiton 07-05-2023 Follow-up visit [id number] Breann Starks 1945 F Date Provider Department Center 07/05/2023 YANCY IVERSON AMISH Dinhevguerrero Lubin Family History Adopted: Yes Family history unknown: Yes Family Status - Relation Status Age at Mother Father Level of Service:11400 [place] OFFICE/OUTPATIENT ESTABLISHED LOW MDM 20-29 MIN Normal [facility] XR LSPINE W_OBLS AND FLEX_EX [...] by: PAULA BROWN Date: 2023-01-31 11:34 Normal [facility] LIPID PROFILEon 12-16-2022 CHOL-HDL RATIO NORM SEE BELOW Normal [facility] Comment on above: Result Comment: 3.3 - 4.4 LOW RISK 4.4 - 7.1 AVERAGE RISK 7.1 - 11.0 MODERATE RISK >11.0 HIGH RISK Performed By: #### L IPID ####[facility] [address] [place], [place] [address]MeDr. Erasmo Smith Cholesterol [Mass/Vol] 105 mg/dL Normal <=200 Th [facility] Comment on above: Performed By: #### L IPID ####[facility] [address] [place], [place] [address]Pc. Erasmo Smith Cholesterol in HDL [Mass/Vol] 48 mg/dL Normal 40-60 The [facility] Comment on above: Performed By: #### L IPID ####[facility] [address] [place], [place] [address]Yu. Erasmo Smith Cholesterol in LDL [Mass/Vol] 48.2 mg/dL Normal [facility] Comment on above: Performed By: #### L IPID ####[facility] [address] [place] [id number]. Erasmo Smith Cholesterol.total/Chol esterol in HDL [Mass ratio] 2.2 {ratio} Normal The [facility] Comment on above: Performed By: #### L IPID ####[facility] [address] [place] [id number]. Erasmo Smith HDL NORMAL > or = 60 mg/dl - LOW CARDIOVASCULAR RISK <40 mg/dl - HIGH CARDIOVASCULAR RISK Normal The [facility] Comment on above: Performed By: #### L IPID ####[facility] Dzxcawxwvm64[address] [place] [id number]. Erasmo Smith LDL CALC NORMAL SEE BELOW Normal The [facility] Comment on above: Result Comment: <100 mg/dl OPTIMAL 100 - 129 mg/dl NEAR OR ABOVE OPTIMAL 130 - 159 mg/dl BORDERLINE HIGH 160 - 189 mg/dl HIGH >190 mg/dl VERY HIGH Performed By: #### L IPID ####[facility] Ymodgosqcd1792 [place] [id number]. Erasmo Smith Triglyceride [Mass/Vol] 44 mg/dL Normal <=150 [facility] Comment on above: Performed By: #### L IPID ####[facility] Wqrdrdecjw6351 [place] [id number]. Erasmo Smith VLDL CALC 8.8 mg/dL Normal [facility] Comment on above: Performed By: #### L IPID ####[facility] Astrxqucmc7584 [place], [place] [address]Iw. Erasmo Smith CULTURE BLOODon 12-04-2022 Microscopic examination [...] Trimethoprim/Sulfame thoxazole <=20 S F Normal [facility] Comment on above: Performed By: #### B LDCX1 ####[facility] Evykrvftjr[address] [place], [place] [address]Dr. Erasmo Smith BNPon 12-03-2022 Natriuretic peptide B (Bld) [Mass/Vol] 413.0 pg/mL Normal <=1,800.0 [facility] Comment on above: Performed By: #### B TOLL SETTLEMENT CLERK #### [facility] [address] [place] [address] Dr. Erasmo Smith CBC AUTO DIFFon 12-03-2022 BASO # 0.0 103/ul Normal 0.0-0.1 [facility] Comment on above: Performed By: #### C BC ####[facility] Pxnxepdvtz[address] [place], [place] [address]Dr. Erasmo Smith Basophils/100 WBC (Bld) 0.2 % Normal 0.2-2.0 [facility] Comment on above: Performed By: #### C BC ####[facility] Ifslgbjgal[address] [place], [place] [address]DrMeena Smith EO # 0.4 103/ul Normal 0.0-0.7 [facility] Comment on above: Performed By: #### C BC ####[facility] Akjeskwnit[address] [place], [place] [address]DrMeena Smith Eosinophils/100 WBC (Bld) 2.1 % Normal 0.9-7.0 [facility] Comment on above: Performed By: #### C BC ####[facility] U[address]ymcs[address] [place] [address]Dr. Erasmo Smith Erythrocyte distribution width (RBC) [Ratio] 17.2 % Critically high 11.0-15.0 [facility] Comment on above: Performed By: #### C BC ####[facility] Egrpmiybjq[address] [place] [address]Dr. Erasmo Smith Hematocrit (Bld) [Volume fraction] 29.2 % Critically low 36.0-48.0 [facility] Comment on above: Performed By: #### C BC ####[facility] Prwgddxbxv8[address] [place], [place] [address]Dr. Erasmo Smith Hemoglobin (Bld) [Mass/Vol] 9.5 g/dL Critically low 12.0-16.0 [facility] Comment on above: Performed By: #### C BC ####[facility] Avkvtkgwar[address] [place], [place] [address]Dr. Erasmo Smith IG # 0.13 10e3/ul Critically high 0.00-0.03 [facility] Comment on above: Performed By: #### C BC ####[facility] Huatlketxb62[address] [place], [place] [address]Dr. Erasmo Smith IG % 0.8 % Critically high 0.0-0.5 [facility] Comment on above: Performed By: #### C BC ####[facility] Pdqrndcahy[address] [place], [place] [address]Dr. Erasmo Smith LYMPH # 1.8 103/ul Normal 1.2-3.8 [facility] Comment on above: Performed By: #### C BC ####[facility] Tabjnbynip18[address] [place], [place] [address]Dr. Erasmo Smith Lymphocytes/100 WBC (Bld) 10.3 % Critically low 20.5-60.0 [facility] Comment on above: Performed By: #### C BC ####[facility] Tbbeluzcey[address] [place], [place] [address]Dr. Erasmo Smith MANUAL DIFF REQ NO Normal [facility] Comment on above: Performed By: #### C BC ####[facility] Lgiehpfjnd14[address] [place] [id number]. Erasmo Luis MCH (RBC) [Entitic mass] 25.7 pg Critically low 26.7-34.0 [facility] Comment on above: Performed By: #### C BC ####[facility] Xlnmbmwbke2[address] [place] [id number]. Erasmo Luis MCHC (RBC) [Mass/Vol] 32.5 g/dL Normal 29.9-35.2 [facility] Comment on above: Performed By: #### C BC ####[facility] Agbpoqnafs8[address] [place] [id number]. Erasmo Smith MCV (RBC) [Entitic vol] 79.1 fL Critically low 81.0-99.0 [facility] Comment on above: Performed By: #### C BC ####[facility] Jgnwmhgvuq[address] [place], [place] [address]Dr. Erasmo Smith MONO # 1.5 103/ul Critically high 0.3-0.8 The [facility] Comment on above: Performed By: #### C BC ####[facility] Abiobrnlxy[address] [place] [address]Dr. Erasmo Smith Monocytes/100 WBC (Bld) 8.7 % Normal 1.7-12.0 [facility] Comment on above: Performed By: #### C BC ####[facility] Kegxxtbujr[address] [place], [place] [address]Dr. Erasmo Smith NEUT # 13.4 103/ul Critically high 1.4-6.5 [facility] Comment on above: Performed By: #### C BC ####[facility] Umldveokaj2234 [place] [id number]. Erasmo Smith Neutrophils/100 WBC (Bld) 77.9 % Critically high 43.0-75.0 [facility] Comment on above: Performed By: #### C BC ####[facility] Wcrihtdcsi54[address] [place] [id number]. Erasmo Smith Platelet mean volume (Bld) [Entitic vol] 9.3 fL Critically low 9.5-13.5 [facility] Comment on above: Performed By: #### C BC ####[facility] Dubrnqejec[address]01 [place], [place] [address]Ua. Erasmo Smith PLT 205 103/ul Normal 150-450 [facility] Comment on above: Performed By: #### C BC ####[facility] Ixpjevzjwp8113 [place], [place] [address]Yi. Erasmo Smith RBC 3.69 106/ul Critically low 4.20-5.40 [facility] Comment on above: Performed By: #### C BC ####[facility] Ucyhzcxnza0695 [place], [place] [address]Vu. Erasmo Smith WBC 17.2 103/ul Critically high 4.0-11.0 The [facility] Comment on above: Performed By: #### C BC ####[facility] Yddgdnagkl0104 [place] [id number]. Erasmo Smith MAGNESIUMon 12-03-2022 Magnesium [Mass/Vol] 1.9 mg/dL Normal 1.8-2.4 [facility] Comment on above: Performed By: #### B TOLL SETTLEMENT CLERK #### [facility] [address] [address] [address] Erasmo Smith PROF 14(COMP METB)on 023 Albumin [Mass/Vol] 2.6 g/dL Critically low 3.4-5.0 [facility] Comment on above: Performed By: #### B TOLL SETTLEMENT CLERK #### [facility] [address] [address] [address] Erasmo Smith Albumin/Globulin [Mass ratio] 0.6 {ratio} Normal [facility] Comment on above: Performed By: #### B TOLL SETTLEMENT CLERK #### [facility] [address] [address] [address] Erasmo Smith ALP [Catalytic activity/Vol] 123 U/L Critically high 46-116 [facility] Comment on above: Performed By: #### B TOLL SETTLEMENT CLERK #### [facility] [address] [address] [address] Erasmo Smith ALT [Catalytic activity/Vol] 28 U/L Normal 14-59 [facility] Comment on above: Performed By: #### B TOLL SETTLEMENT CLERK #### [facility] [address] [address] [address] Erasmo Smith Anion gap [Moles/Vol] 9.4 mmol/L Normal [facility] Comment on above: Performed By: #### B TOLL SETTLEMENT CLERK #### [facility] [address] [address] [address] Erasmo Smith AST [Catalytic activity/Vol] 21 U/L Normal 15-37 [facility] Comment on above: Performed By: #### B TOLL SETTLEMENT CLERK #### [facility] [address] [address] [address] Erasmo Smith Bilirubin [Mass/Vol] 0.3 mg/dL Normal 0.2-1.0 [facility] Comment on above: Performed By: #### B TOLL SETTLEMENT CLERK #### [facility] [address] [place] [address] Dr. Erasmo Smith Calcium [Mass/Vol] 8.3 mg/dL Critically low 8.5-10.1 Th [facility] Comment on above: Performed By: #### B TOLL SETTLEMENT CLERK #### [facility] [address] [address] [address] Erasmo Smith Chloride [Moles/Vol] 105 mmol/L Normal 98-107 [facility] Comment on above: Performed By: #### B TOLL SETTLEMENT CLERK #### [facility] [address] [address] [address] Erasmo Smith CO2 [Moles/Vol] 27.1 mmol/L Normal 21.0-32.0 [facility] Comment on above: Performed By: #### B TOLL SETTLEMENT CLERK #### [facility] [address] [address] [address] Erasmo Smith Creatinine [Mass/Vol] 0.55 mg/dL Normal 0.55-1.02 [facility] Comment on above: Performed By: #### B TOLL SETTLEMENT CLERK #### [facility] [address] [address] [address] Erasmo Smith EGFR-AF GHANAIAN >60 Normal >=60 The [facility] Comment on above: Performed By: #### B TOLL SETTLEMENT CLERK #### [facility] [address] [address] [address] Erasmo Smith EGFR-NON AF GHANAIAN >60 Normal >=60 [facility] Comment on above: Performed By: #### B TOLL SETTLEMENT CLERK #### [facility] [address] [address] [address] Erasmo Smith Globulin (S) [Mass/Vol] 4.0 g/dL Normal [facility] Comment on above: Performed By: #### B TOLL SETTLEMENT CLERK #### [facility] [address] [place] [address] Dr. Erasmo Smith Glucose [Mass/Vol] 132 mg/dL Critically high 74-106 T [facility] Comment on above: Performed By: #### B TOLL SETTLEMENT CLERK #### [facility] [address] [place] [address] Dr. Erasmo Smith Potassium [Moles/Vol] 3.5 mmol/L Normal 3.5-5.1 [facility] Comment on above: Performed By: #### B TOLL SETTLEMENT CLERK #### [facility] [address] [place] [address] Dr. Erasmo Smith Protein [Mass/Vol] 6.6 g/dL Normal 6.4-8.2 The [facility] Comment on above: Performed By: #### B TOLL SETTLEMENT CLERK #### [facility] [address] [place] [address] Dr. Erasmo Smith Sodium [Moles/Vol] 138 mmol/L Normal 136-145 [facility] Comment on above: Performed By: #### B TOLL SETTLEMENT CLERK #### [facility] [address] [place] [address] Dr. Erasmo Smith Urea nitrogen [Mass/Vol] 24.0 mg/dL Critically high 7.0-18.0 [facility] Comment on above: Performed By: #### B TOLL SETTLEMENT CLERK #### [facility] [address] [place] [address] Dr. Erasmo Smith Urea nitrogen/Creatinine [Mass ratio] 43.6 mg/mg Normal [facility] Comment on above: Performed By: #### B TOLL SETTLEMENT CLERK #### [facility] [address] [place] [address] Dr. Erasmo Smith PROTIMEon 12-03-2022 INR Coag (PPP) [Relative time] 4.41 {INR} Critically high The [facility] Comment on above: Performed By: #### C MREP #### [facility] [address] [address] [address] Erasmo Smith INR GUIDELINES SEE BELOW Normal The [facility] Comment on above: Result Comment: ABNER RED INR: 2.0 - 3.0 CONDITIONS NOT LISTED BELOW 2.5 - 3.5 FOR PROSTHETIC HEART VALVE REPLACEMENT 2.5 - 3.5 RECURRENT THROMBOSIS Performed By: #### C MREP #### [facility] [address] [address] [address] Erasmo Smith PT Coag (PPP) [Time] 43.0 s Critically high 9.0-11.6 [facility] Comment on above: Performed By: #### C MREP #### [facility] [address] [address] [address] Erasmo Smith BLOOD CULTURE ID PANELon A. baumannii Not detected Normal NOT DETECTED The [facility] Comment on above: Performed By: #### B CID2 ####[facility] [address]eyb[address] [place] [address]DrMeena Smith Bacteriodes fragilis Not detected Normal NOT DETECTED The [facility] Comment on above: Performed By: #### B CID2 ####[facility] [address]mbjrcjlc[address] [place] [address]Dr. Erasmo Smith BCID CONTROLS PASSED Normal The [facility] Comment on above: Performed By: #### B CID2 ####[facility] Tjhqmaynfr[address] [place] [address]Dr. Erasmo Smith BCIDBTHD BLOOD CULTURE BOTTLE INFORMATION Normal The [facility] Comment on above: Performed By: #### B CID2 ####[facility] V[address]apcwchb[address] [place] [address]Dr. Erasmo Smith BCIDHD1 ANTIMICROBIAL RESISTANCE GENES Normal The [facility] Comment on above: Performed By: #### B CID2 ####[facility] Aee[address]rlwjt[address] [place], [place] [address]Dr. Erasmo Smith BCIDHD2 SEE BELOW Normal The [facility] Comment on above: Result Comment: Note : Antimicrobial resitance can occur via multiple mechanisms. A Not Detected result for the [employer] antomicrobial resistance gene assays does not indicate antimicrobial susceptibility. Subculturing is required for species identification and susceptibility testing of isolates. Performed By: #### B CID2 ####[facility] Xxxvfhvogm[address] [place] [address]Dr. Erasmo Smith BCIDHD3 Positive Normal The [facility] Comment on above: Performed By: #### B CID2 ####[facility] [address]ubzpdvtib[address] [place], [place] [address]Dr. Erasmo Smith BCIDHD4 Negative Normal The [facility] Comment on above: Performed By: #### B CID2 ####[facility] Icrjkuupni7[address] [place], [place] [address]Dr. Erasmo Smith BCIDHD5 YEAST Normal The [facility] Comment on above: Performed By: #### B CID2 ####[facility] Axrlvtipik[address] [place], [place] [address]Dr. Erasmo Smith Bottle Set: Set 1 Normal The [facility] Comment on above: Performed By: #### B CID2 ####[facility] Fcisvpowcw[address] [place], [place] [address]Dr. Erasmo Smith Bottle: Anaerobic Normal The [facility] Comment on above: Performed By: #### B CID2 ####[facility] Plfhqfyxvi24[address] [place], [place] [address]Dr. Yiean Smith C. neoformans/gattii Not detected Normal NOT DETECTED The [facility] Comment on above: Performed By: #### B CID2 ####[facility] Xbwxqqbaci75[address] [place], [place] [address]Dr. Yiean Smith Naye albicans Not detected Normal NOT DETECTED The [facility] Comment on above: Performed By: #### B CID2 ####[facility] Tpgtlgwexv2[address] [place], [place] [address]Dr. Yiean Smith Naye auris Not detected Normal NOT DETECTED The [facility] Comment on above: Performed By: #### B CID2 ####[facility] Ilxokwsyel[address] [place] [id number]. Erasmo Smith Naye glabrata Not detected Normal NOT DETECTED The [facility] Comment on above: Performed By: #### B CID2 ####[facility] Vqnmcojdpc85[address] [place] [address]Dr. Erasmo Smith Naye Krusei Not detected Normal NOT DETECTED The [facility] Comment on above: Performed By: #### B CID2 ####[facility] Ofdvlxjgsk2825 [place] [address]Dr. Erasmo Smith Naye Parapsilosis Not detected Normal NOT DETECTED The [facility] Comment on above: Performed By: #### B CID2 ####[facility] Dofsheiaxw8[address] [place], [place] [address]Dr. Erasmo Smith Naye Tropicalis Not detected Normal NOT DETECTED [facility] Comment on above: Performed By: #### B CID2 ####[facility] Pvbcbftwcc49[address] [place], [place] [address]Dr. Erasmo Smith CTX-M Resistant Gene Not Applicable Normal NOT DETECTE D [facility] Comment on above: Performed By: #### B CID2 ####[facility] Fxscxlgudo95[address] [place], [place] [address]Dr. Erasmo Smith E. Cloacae complex Not detected Normal NOT DETECTED [facility] Comment on above: Performed By: #### B CID2 ####[facility] Oixeyrpbsy10[address] [place], [place] [address]Dr. Erasmo Smith E. faecalis Not detected Normal NOT DETECTED The [facility] Comment on above: Performed By: #### B CID2 ####[facility] Ohmfyggkxn10[address] [place] [address]Dr. Erasmo Smith E. faecium Not detected Normal NOT DETECTED The [facility] Comment on above: Performed By: #### B CID2 ####[facility] Jvcienapqp8974[address] [place], [place] [address]Dr. Erasmo Smith Enterobacteriaceae Detected Critically abnormal NOT DETECTED The [facility] Comment on above: Performed By: #### B CID2 ####[facility] Cossnygtcx[address] [place], [place] [id number]. Erasmo Smith Escherichia coli Detected Critically abnormal NOT DETECTED The [facility] Comment on above: Performed By: #### B CID2 ####[facility] Dskfwappcf[address] [place], [place] [address]Dr. Erasmo Smith H. influenzae Not detected Normal NOT DETECTED The [facility] Comment on above: Performed By: #### B CID2 ####[facility] Uyekyncqqe2440[address] [place], [place] [address]Dr. Erasmo Smith IMP Resistant Gene Not Applicable Normal NOT DETECTED The [facility] Comment on above: Performed By: #### B CID2 ####[facility] Uxwziabipt9097[address] [place], [place] [address]Dr. Erasmo Smith K. oxytoca Not detected Normal NOT DETECTED The [facility] Comment on above: Performed By: #### B CID2 ####[facility] Szifayilgm5764[address] [place], [place] [address]Dr. Erasmo Smith K. pneumoniae Not detected Normal NOT DETECTED The [facility] Comment on above: Performed By: #### B CID2 ####[facility] Owffvttsrx9[address] [place], [place] [address]Dr. Erasmo Smith Klebsiella aerogenes Not detected Normal NOT DETECTED The [facility] Comment on above: Performed By: #### B CID2 ####[facility] Xlcmtkwziy59[address] [place], [place] [address]Dr. Erasmo Smith KPC Resistant Gene Not detected Normal NOT DETECTED [facility] Comment on above: Performed By: #### B CID2 ####[facility] Qdywhwuvgi2342[address] [place], [place] [address]Dr. Erasmo Smith List. monocytogenes Not detected Normal NOT DETECTED [facility] Comment on above: Performed By: #### B CID2 ####[facility] Ylngkxqmtc34[address] [place], [place] [address]Dr. Erasmo Smith Mcr-1 Resistant Gene Not Applicable Normal NOT DETECTE D [facility] Comment on above: Performed By: #### B CID2 ####[facility] Xjrswifsaq[address] [place], [place] [address]Dr. Yilan Smith mecA/C Not Applicable Normal NOT DETECTED The [facility] Comment on above: Performed By: #### B CID2 ####[facility] Mpimeyirqy9[address] [place], [place] [address]Dr. Erasmo Smith mecA/C MREJ Not Applicable Normal NOT DETECTED The [facility] Comment on above: Performed By: #### B CID2 ####[facility] Phybngrose13[address] [place], [place] [address]Dr. Erasmo Smith N. meningitidis Not detected Normal NOT DETECTED The [facility] Comment on above: Performed By: #### B CID2 ####[facility] Kohfqroaok90[address] [place], [place] [address]Dr. Erasmo Smith NDM Resistant Gene Not Applicable Normal NOT DETECTED The [facility] Comment on above: Performed By: #### B CID2 ####[facility] Hsggcbhjzb55[address] [place], [place] [address]Dr. Erasmo Smith Oxa-48-like Not Applicable Normal NOT DETECTED The [facility] Comment on above: Performed By: #### B CID2 ####[facility] Gwzrnuzdvi55[address] [place], [place] [address]Dr. Erasmo Smith Proteus Not detected Normal NOT DETECTED The [facility] Comment on above: Performed By: #### B CID2 ####[facility] Wnfwpfbojl79[address] [place], [place] [address]Dr. Erasmo Smith Pseud. aeruginosa Not detected Normal NOT DETECTED The [facility] Comment on above: Performed By: #### B CID2 ####[facility] Ffzoukyufc[address] [place], [place] [address]Dr. Erasmo Smith S. maltophilia Not detected Normal NOT DETECTED The [facility] Comment on above: Performed By: #### B CID2 ####[facility] Qywywevynw7[address] [place], [place] [address]Dr. Erasmo Smith Salmonella Not detected Normal NOT DETECTED The [facility] Comment on above: Performed By: #### B CID2 ####[facility] Uouqxlmliv6253[address] [place], [place] [address]Dr. Erasmo Smith Seratia marcescens Not detected Normal NOT DETECTED [facility] Comment on above: Performed By: #### B CID2 ####[facility] [address] [place] [address]Dr. Erasmo Smith Site: l ac Normal The [facility] Comment on above: Performed By: #### B CID2 ####[facility] Lfpshycvfq[address] [place] [address]Dr. Yilan Smith Staph. aureus Not detected Normal NOT DETECTED The [facility] Comment on above: Performed By: #### B CID2 ####[facility] Jolizkoybz9450[address] [place], [place] [address]Dr. Yiean Smith Staph. epidermidis Not detected Normal NOT DETECTED [facility] Comment on above: Performed By: #### B CID2 ####[facility] Otimxtvvsz9625[address] [place], [place] [address]Dr. Yiean Smith Staph. lugdunensis Not detected Normal NOT DETECTED [facility] Comment on above: Performed By: #### B CID2 ####[facility] Necommerzg49[address] [place], [place] [address]Dr. Yilan Smith Staphylococcus Not detected Normal NOT DETECTED The [facility] Comment on above: Performed By: #### B CID2 ####[facility] Mzineefuee8[address] [place], [place] [address]Dr. Yilan Smith Strep. agalactiae Not detected Normal NOT DETECTED The [facility] Comment on above: Performed By: #### B CID2 ####[facility] Nxolhktetw3[address] [place], [place] [address]Dr. Yilan Smith Strep. pneumoniae Not detected Normal NOT DETECTED The [facility] Comment on above: Performed By: #### B CID2 ####[facility] Rmyapcjxxt2957[address] [place], [place] [address]Dr. Yilan Smith Strep. pyogenes Not detected Normal NOT DETECTED The [facility] Comment on above: Performed By: #### B CID2 ####[facility] Thucwenofi89[address] [place], [place] [address]Dr. Yilan Smith Streptococcus Not detected Normal NOT DETECTED The [facility] Comment on above: Performed By: #### B CID2 ####[facility] Vbcngmzbak[address] [place] [place] [address]Dr. Erasmo Smith Fran/B Resist. Gene Not detected Normal NOT DETECTED [facility] Comment on above: Performed By: #### B CID2 ####[facility] Fuoutnuinh37[address] [address]Dr. Erasmo Smith VIM Resistant Gene Not Applicable Normal NOT DETECTED The [facility] Comment on above: Performed By: #### B CID2 ####[facility] Ujshjhxlru[address] [address]Dr. Erasmo Smith BNPon 12-02-2022 Natriuretic peptide B (Bld) [Mass/Vol] 1059.0 pg/mL Normal <=1,800.0 [facility] Comment on above: Performed By: #### B TOLL SETTLEMENT CLERK #### [facility] [address] [address] [address] Erasmo Smith CBC AUTO DIFFon 12-02-2022 BASO # 0.0 103/ul Normal 0.0-0.1 [facility] Comment on above: Performed By: #### C BC ####[facility] Uhmdxphjgg[address] [address]Dr. Erasmo Smith Basophils/100 WBC (Bld) 0.2 % Normal 0.2-2.0 The [facility] Comment on above: Performed By: #### C BC ####[facility] Jsmxppgftl[address] [place], [place] [address]Dr. Erasmo Smith EO # 0.0 103/ul Normal 0.0-0.7 The [facility] Comment on above: Performed By: #### C BC ####[facility] Rtwecdbgso[address] [address]Dr. Erasmo Smith Eosinophils/100 WBC (Bld) 0.0 % Critically low 0.9-7.0 The [facility] Comment on above: Performed By: #### C BC ####[facility] Ntkfhpkahu[address] [place], [place] [address]DrMeena Smith Erythrocyte distribution width (RBC) [Ratio] 17.3 % Critically high 11.0-15.0 [facility] Comment on above: Performed By: #### C BC ####[facility] Velevqnxdx[address] [place] [address]Dr. Erasmo Smith Hematocrit (Bld) [Volume fraction] 31.4 % Critically low 36.0-48.0 [facility] Comment on above: Performed By: #### C BC ####[facility] Qagxaiosnd29[address] [place] [address]DrMeena Smith Hemoglobin (Bld) [Mass/Vol] 10.0 g/dL Critically low 12.0-16.0 [facility] Comment on above: Performed By: #### C BC ####[facility] Jmyclmhgnw[address]63[address] [place], [place] [address]DrMeena Smith IG # 0.06 10e3/ul Critically high 0.00-0.03 [facility] Comment on above: Performed By: #### C BC ####[facility] Vuiiogynvv6611[address] [place], [place] [address]DrMeena Smith IG % 0.4 % Normal 0.0-0.5 [facility] Comment on above: Performed By: #### C BC ####[facility] Ntmvfcixvw4565[address] [place], [place] [address]DrMeena Smith LYMPH # 1.3 103/ul Normal 1.2-3.8 [facility] Comment on above: Performed By: #### C BC ####[facility] Hpqnzroqfu7409[address] [place], [place] [address]DrMeena Smith Lymphocytes/100 WBC (Bld) 8.1 % Critically low 20.5-60.0 [facility] Comment on above: Performed By: #### C BC ####[facility] Afwafhbwbw3527[address] [place], [place] [address]DrMeena Smith MANUAL DIFF REQ NO Normal [facility] Comment on above: Performed By: #### C BC ####[facility] Lxanzjuzlc[address] [place] [address]DrMeena Smith MCH (RBC) [Entitic mass] 25.6 pg Critically low 26.7-34.0 [facility] Comment on above: Performed By: #### C BC ####[facility] [address] [place] [id number]. Erasmo Luis MCHC (RBC) [Mass/Vol] 31.8 g/dL Normal 29.9-35.2 The [facility] Comment on above: Performed By: #### C BC ####[facility] [address]cfiixbhz5[address] [place] [id number] Smith MCV (RBC) [Entitic vol] 80.3 fL Critically low 81.0-99.0 [facility] Comment on above: Performed By: #### C BC ####[facility] Wouvohbbfd529[address] [place], [place] [address]DrMeena Smith MONO # 0.6 103/ul Normal 0.3-0.8 [facility] Comment on above: Performed By: #### C BC ####[facility] Vycbfgnrvv7474[address] [place], [place] [address]Dr. Erasmo Smith Monocytes/100 WBC (Bld) 3.7 % Normal 1.7-12.0 [facility] Comment on above: Performed By: #### C BC ####[facility] Edjniwfadk[address] [place], [place] [address]Dr. Erasmo Smith NEUT # 14.5 103/ul Critically high 1.4-6.[address] [facility] Comment on above: Performed By: #### C BC ####[facility] [address]ox[address] [place] [id number]. Erasmo Smith Neutrophils/100 WBC (Bld) 87.6 % Critically high 43.0-75.0 The [facility] Comment on above: Performed By: #### C BC ####[facility] Aduyuervja[address] [place], [place] [id number] Smith Platelet mean volume (Bld) [Entitic vol] 10.0 fL Normal 9.5-13.5 The [facility] Comment on above: Performed By: #### C BC ####[facility] M[address]zkebvenr[address] [place], [place] [address]DrMeena Smith PLT 206 103/ul Normal 150-450 The [facility] Comment on above: Performed By: #### C BC ####[facility] [address] [place], [place] [address]Za. Erasmo Smith RBC 3.91 106/ul Critically low 4.20-5.40 [facility] Comment on above: Performed By: #### C BC ####[facility] [address]rgsox[address] [place], [place] [address]De. Erasmo Smith WBC 16.5 103/ul Critically high 4.0-11.[address] [facility] Comment on above: Performed By: #### C BC ####[facility] Ozjmppkved[address] [place], [place] [address]Sl. Erasmo Smith ECHOCARDIO M/2D COMPLETEon 0 12-02-2022 ECHOCARDIO M/2D COMPLETE Patient: BREANN STARKS Exam Date: 12/02/2022 : 1945 Gender:F Ordering : KAYLEY HOLMAN . Admission #: [id number] Family : DR LUISANA JOHNSON . Order #: [id number] CLICK HERE TO VIEW EXAM ECHOCARDIOGRAM REPORT [...] M.D. on 12/02/2022 at 21:58 Normal The [facility] MAGNESIUMon 12-02-2022 Magnesium [Mass/Vol] 2.0 mg/dL Normal 1.8-2.4 The [facility] Comment on above: Performed By: #### B TOLL SETTLEMENT CLERK #### [facility] [address] [address] [address] Erasmo Smith PROF 14(COMP METB)on 023 Albumin [Mass/Vol] 2.7 g/dL Critically low 3.4-5.0 [facility] Comment on above: Performed By: #### B TOLL SETTLEMENT CLERK #### [facility] [address] [place] [address] Dr. Erasmo Smith Albumin/Globulin [Mass ratio] 0.6 {ratio} Normal [facility] Comment on above: Performed By: #### B TOLL SETTLEMENT CLERK #### [facility] [address] [place] [address] Dr. Erasmo Smith ALP [Catalytic activity/Vol] 128 U/L Critically high 46-116 [facility] Comment on above: Performed By: #### B TOLL SETTLEMENT CLERK #### [facility] [address] [place] [address] Dr. Erasmo Smith ALT [Catalytic activity/Vol] 34 U/L Normal 14-59 [facility] Comment on above: Performed By: #### B TOLL SETTLEMENT CLERK #### [facility] [address] [place] [address] Dr. Erasmo Smith Anion gap [Moles/Vol] 10.6 mmol/L Normal Th [facility] Comment on above: Performed By: #### B TOLL SETTLEMENT CLERK #### [facility] [address] [place] [address] Dr. Erasmo Smith AST [Catalytic activity/Vol] 27 U/L Normal 15-37 [facility] Comment on above: Performed By: #### B TOLL SETTLEMENT CLERK #### [facility] [address] [place] [address] Dr. Erasmo Smith Bilirubin [Mass/Vol] 0.5 mg/dL Normal 0.2-1.0 [facility] Comment on above: Performed By: #### B TOLL SETTLEMENT CLERK #### [facility] [address] [place] [address] Dr. Erasmo Smith Calcium [Mass/Vol] 8.4 mg/dL Critically low 8.5-10.1 [facility] Comment on above: Performed By: #### B TOLL SETTLEMENT CLERK #### [facility] [address] [address] [address] Erasmo Smith Chloride [Moles/Vol] 104 mmol/L Normal 98-107 [facility] Comment on above: Performed By: #### B TOLL SETTLEMENT CLERK #### [facility] [address] [address] [address] Erasmo Smith CO2 [Moles/Vol] 26.2 mmol/L Normal 21.0-32.[address] [facility] Comment on above: Performed By: #### B TOLL SETTLEMENT CLERK #### [facility] [address] [place] [address] Dr. Erasmo Smith Creatinine [Mass/Vol] 0.52 mg/dL Critically low 0.55-1.02 [facility] Comment on above: Performed By: #### B TOLL SETTLEMENT CLERK #### [facility] [address] [place] [address] Dr. Erasmo Smith EGFR-AF GHANAIAN >60 Normal >=[address] [facility] Comment on above: Performed By: #### B TOLL SETTLEMENT CLERK #### [facility] [address] [place] [address] Dr. Erasmo Smith EGFR-NON AF GHANAIAN >60 Normal >=60 [facility] Comment on above: Performed By: #### B TOLL SETTLEMENT CLERK #### [facility] [address] [place] [address] Dr. Erasmo Smith Globulin (S) [Mass/Vol] 4.3 g/dL Normal [facility] Comment on above: Performed By: #### B TOLL SETTLEMENT CLERK #### [facility] [address] [place] [address] Dr. Erasmo Smith Glucose [Mass/Vol] 135 mg/dL Critically high 74-106 [facility] Comment on above: Performed By: #### B TOLL SETTLEMENT CLERK #### [facility] [address] [place] [address] Dr. Erasmo Smith Potassium [Moles/Vol] 3.8 mmol/L Normal 3.5-5.1 [facility] Comment on above: Performed By: #### B TOLL SETTLEMENT CLERK #### [facility] [address] [place] [address] Dr. Erasmo Smith Protein [Mass/Vol] 7.0 g/dL Normal 6.4-8.2 [facility] Comment on above: Performed By: #### B TOLL SETTLEMENT CLERK #### [facility] [address] [place] [address] Dr. Erasmo Smith Sodium [Moles/Vol] 137 mmol/L Normal 136-145 [facility] Comment on above: Performed By: #### B TOLL SETTLEMENT CLERK #### [facility] [address] [address] [address] Erasmo Smith Urea nitrogen [Mass/Vol] 16.0 mg/dL Normal 7.0-18.0 [facility] Comment on above: Performed By: #### B TOLL SETTLEMENT CLERK #### [facility] [address] [place] [address] Dr. Erasmo Smith Urea nitrogen/Creatinine [Mass ratio] 30.8 mg/mg Normal [facility] Comment on above: Performed By: #### B TOLL SETTLEMENT CLERK #### [facility] [address] [place] [address] Dr. Erasmo Smith PROTIMEon 12-02-2022 INR Coag (PPP) [Relative time] 4.39 {INR} Critically high [facility] Comment on above: Performed By: #### P T #### [facility] [address] [place] [address] Dr. Erasmo Smith INR GUIDELINES SEE BELOW Normal The [facility] Comment on above: Result Comment: ABNER RED INR: 2.0 - 3.0 CONDITIONS NOT LISTED BELOW 2.5 - 3.5 FOR PROSTHETIC HEART VALVE REPLACEMENT 2.5 - 3.5 RECURRENT THROMBOSIS Performed By: #### P T #### [facility] [address] [place] [address] Dr. Erasmo Smith PT Coag (PPP) [Time] 42.8 s Critically high 9.0-11.6 [facility] Comment on above: Performed By: #### P T #### [facility] [address] [place] [address] Dr. Erasmo Smith UA RANDOM W/MICROSCOPICon BACTERIA NONE SEEN Normal NONE SEEN The [facility] Comment on above: Performed By: #### U AMIC ####[facility] Zlvvkuotgr[address] [place], [place] [address]Dr. Erasmo Smith Bilirubin Ql (U) Negative Normal NEGATIVE The [facility] Comment on above: Performed By: #### U AMIC ####[facility] [address]zwqbi[address] [place] [address]Dr. Erasmo Smith CAST NONE SEEN Normal NONE SEEN The [facility] Comment on above: Performed By: #### U AMIC ####[facility] Sienhyjodr[address] [place], [place] [address]Dr. Erasmo Smith Clarity (U) CLEAR Normal CLEAR The [facility] Comment on above: Performed By: #### U AMIC ####[facility] Evtswvwxll[address] [place], [place] [address]Dr. Erasmo Smith Color (U) YELLOW Normal YELLOW The [facility] Comment on above: Performed By: #### U AMIC ####[facility] Yxtbutbcza6667[address] [place], [place] [address]Dr. Erasmo Smith Crystals LM Nom (Urine sed) NONE SEEN Normal NONE SEEN The [facility] Comment on above: Performed By: #### U AMIC ####[facility] Gsspdyplgm[address] [place], [place] [address]Dr. Erasmo Smith Epithelial cells LM Ql (Urine sed) RARE Normal NONE SEEN /RARE The [facility] Comment on above: Performed By: #### U AMIC ####[facility] Crrexwccri80[address] [place], [place] [address]Dr. Erasmo Smith Glucose Ql (U) Negative Normal NEGATIVE The [facility] Comment on above: Performed By: #### U AMIC ####[facility] Prkosmfdfy[address] [place], [place] [address]Dr. Erasmo Smith Hemoglobin Ql (U) SMALL Abnormal NEGATIVE The [facility] Comment on above: Performed By: #### U AMIC ####[facility] Cjdgsdtugw[address] [place], [place] [address]Dr. Erasmo Smith Ketones Ql (U) 15 mg/dl Abnormal NEGATIVE The [facility] Comment on above: Performed By: #### U AMIC ####[facility] [address]leset[address] [place] [address]Dr. Erasmo Smith LEUKOCYTES Negative Normal NEGATIVE The [facility] Comment on above: Performed By: #### U AMIC ####[facility] [address]fpbrhny[address] [place] [address]Dr. Erasmo Smith MUCOUS NONE SEEN Normal NONE SEEN The [facility] Comment on above: Performed By: #### U AMIC ####[facility] Jqllojpsjw[address] [place], [place] [address]Dr. Heavenean Smith Nitrite Ql (U) Negative Normal NEGATIVE The [facility] Comment on above: Performed By: #### U AMIC ####[facility] Fdnkrammlf25[address] [place], [place] [address]Dr. Erasmo Luis pH (U) 6.0 [pH] Normal 5-9 The [facility] Comment on above: Performed By: #### U AMIC ####[facility] Jmoapnlorg[address] [place], [place] [address]Dr. Erasmo Luis RBC 0-2 Normal 0-2 The [facility] Comment on above: Performed By: #### U AMIC ####[facility] Tcyjradypo[address] [place], [place] [address]Dr. Erasmo Smith SPEC GRAVITY 1.025 Normal 1.005-<=1.02 5 The [facility] Comment on above: Performed By: #### U AMIC ####[facility] U[address]rbeqysl[address] [place], [place] [address]Dr. Erasmo Smith UA PROTEIN TRACE Normal NEGATIVE/ TRACE The [facility] Comment on above: Performed By: #### U AMIC ####[facility] Qrtiaznhqm[address] [place], [place] [address]Dr. Erasmo Smith Urobilinogen Qn (U) 4 {Shraddha'U}/dL Abnormal 0.2 - 1.0 The [facility] Comment on above: Performed By: #### U AMIC ####[facility] Saqcegtcgz[address] [place], [place] [address]Dr. Erasmo Smith WBC 0-2 Abnormal NONE SEEN The [facility] Comment on above: Performed By: #### U AMIC ####[facility] [address] [place], [place] [address]Dr. Erasmo Smith CARDIAC ROSA ELENA 3-6on 3 CK [Catalytic activity/Vol] 53 U/L Normal 26-192 [facility] Comment on above: Performed By: #### C MREP #### [facility] [address] [place], [place] [address] Dr. Erasmo Smith CK.MB [Mass/Vol] 0.90 ng/mL Normal <=3.60 [facility] Comment on above: Performed By: #### C MREP #### [facility] [address] [id number] Erasmo Smith HSTROP 116.7 pg/mL Critically high 4.0-51.3 [facility] Comment on above: Result Comment: CUT- OFF POINTS HAVE BEEN ESTABLISHED BASED ON THE FOURTH UNIVERSAL DEFINITIONS OF MYOCARDIAL INFARCTION. THE UPPER REFERENCE LIMIT (URL) OF TROPONIN, DEFINED THE 99TH PERCENTILE OF cTnI DISTRIBUTION IN A REFERENCE POPULATION, HAS BEEN CONFIRMED THE DECISION THRESHOLD FOR [place] DIAGNOSIS. Performed By: #### C MREP #### [facility] [address] [place], [place] [address] Dr. Erasmo Smith CK [Catalytic activity/Vol] 47 U/L Normal 26-192 [facility] Comment on above: Performed By: #### B TOLL SETTLEMENT CLERK #### [facility] [address] [place], [place] [address] Dr. Erasmo Smith CK.MB [Mass/Vol] 1.00 ng/mL Normal <=3.60 [facility] Comment on above: Performed By: #### B TOLL SETTLEMENT CLERK #### [facility] [address] [place], [place] [address] Dr. Erasmo Smith HSTROP 154.3 pg/mL Critically high 4.0-51.3 [facility] Comment on above: Result Comment: CUT- OFF POINTS HAVE BEEN ESTABLISHED BASED ON THE FOURTH UNIVERSAL DEFINITIONS OF MYOCARDIAL INFARCTION. THE UPPER REFERENCE LIMIT (URL) OF TROPONIN, DEFINED THE 99TH PERCENTILE OF cTnI DISTRIBUTION IN A REFERENCE POPULATION, HAS BEEN CONFIRMED THE DECISION THRESHOLD FOR [place] DIAGNOSIS. Performed By: #### B TOLL SETTLEMENT CLERK #### [facility] [address] [place] [address] Dr. Erasmo Smith CBC W MANUAL DIFFon 12-02-19 ATYPICAL LYMPH # Normal [facility] Comment on above: Performed By: #### C ANGELA #### [facility] [address] [place] [address] Dr. Erasmo Smith ATYPICAL LYMPH % Normal [facility] Comment on above: Performed By: #### C ANGELA #### [facility] [address] [address] [address] Erasmo Smith BAND # 0.6 103/ul Critically high 0.0-0.3 [facility] Comment on above: Performed By: #### C ANGELA #### [facility] [address] [place] [address] Dr. Erasmo Smith BAND % 3 % Normal 0-5 [facility] Comment on above: Performed By: #### C ANGELA #### [facility] [address] [place] [address] Dr. Erasmo Smith BASOM # 0.00 103/ul Normal 0.00-0.10 [facility] Comment on above: Performed By: #### C ANGELA #### [facility] [address] [place] [address] Dr. Erasmo Smith BASOM % 0.0 % Critically low 0.2-2.0 [facility] Comment on above: Performed By: #### C ANGELA #### [facility] [address] [place] [address] Dr. Erasmo Smith BLAST # Normal [facility] Comment on above: Performed By: #### C ANGELA #### [facility] [address] [place] [address] Dr. Erasmo Smith BLAST % Normal [facility] Comment on above: Performed By: #### C ANGELA #### [facility] [address] [place] [address] Dr. Erasmo Smith CORRECTED WBC Normal 4.0-11.0 [facility] Comment on above: Performed By: #### C ANGELA #### [facility] [address] [address] [address] Erasmo Smith EOS # 0.19 103/ul Normal 0.00-0.70 [facility] Comment on above: Performed By: #### C ANGELA #### [facility] [address] [place] [address] Dr. Erasmo Smith EOS% 1.0 % Normal 0.9-7.0 [facility] Comment on above: Performed By: #### C ANGELA #### [facility] [address] [address] [address] Erasmo Smith HCT 32.7 % Critically low 36.0-48.0 [facility] Comment on above: Performed By: #### C ANGELA #### [facility] [address] [place] [address] Dr. Erasmo Smith HGB 10.5 g/dl Critically low 12.0-16.0 [facility] Comment on above: Performed By: #### C ANGELA #### [facility] [address] [place] [address] Dr. Erasmo Smith LYMPHM # 0.76 103/ul Critically low 1.20-3.80 [facility] Comment on above: Performed By: #### C ANGELA #### [facility] [address] [place] [address] Dr. Erasmo Smith LYMPHM% 4.0 % Critically low 20.5-60.0 [facility] Comment on above: Performed By: #### C ANGELA #### [facility] [address] [address] [address] Erasmo Smith MCH 25.9 pg Critically low 26.7-34.[address] [facility] Comment on above: Performed By: #### C ANGELA #### [facility] [address] [place] [address] Dr. Erasmo Smith MCHC 32.1 g/dl Normal 29.9-35.2 [facility] Comment on above: Performed By: #### C ANGELA #### [facility] [address] [place] [address] Dr. Erasmo Smith MCV 80.5 fL Critically low 81.0-99.0 [facility] Comment on above: Performed By: #### C ANGELA #### [facility] [address] [place] [address] Dr. Erasmo Smith METAMYELOCYTE # Normal [facility] Comment on above: Performed By: #### C ANGELA #### [facility] [address] [place] [address] Dr. Erasmo Smith METAMYELOCYTE % Normal [facility] Comment on above: Performed By: #### C BCBLAISE #### [facility] [address] [place] [address] Dr. Erasmo Smith MONOM# 1.14 103/ul Critically high 0.30-0.[address] [facility] Comment on above: Performed By: #### C ANGELA #### [facility] [address] [place] [address] Dr. Erasmo Smith MONOM% 6.0 % Normal 1.7-12.0 [facility] Comment on above: Performed By: #### C ANGELA #### [facility] [address] [place] [address] Dr. Erasmo Smith MPV 9.4 fL Critically low 9.5-13.5 [facility] Comment on above: Performed By: #### C ANGELA #### [facility] [address] [place] [address] Dr. Erasmo Smith MYELOCYTE # Normal [facility] Comment on above: Performed By: #### C ANGELA #### [facility] [address] [place] [address] Dr. Erasmo Smith MYELOCYTE % Normal [facility] Comment on above: Performed By: #### C ANGELA #### [facility] [address] [place] [address] Dr. Erasmo Smith NRBC Normal [facility] Comment on above: Performed By: #### C ANGELA #### [facility] [address] [place] [address] Dr. Erasmo Smith PLT 195 103/ul Normal 150-450 [facility] Comment on above: Performed By: #### C BCMAN #### [facility] [address] [place], [place] [address] Dr. Erasmo Smith RBC 4.06 106/ul Critically low 4.20-5.40 [facility] Comment on above: Performed By: #### C BCMAN #### [facility] [address] [place], [place] [address] Dr. Erasmo Smith RDW 17.7 % Critically high 11.0-15.0 [facility] Comment on above: Performed By: #### C BCMAN #### [facility] [address] [place], [place] [address] Dr. Erasmo Smith SEG # 16.34 103/ul Critically high 1.40-6.50 [facility] Comment on above: Performed By: #### C BCMAN #### [facility] [address] [address] [address] Erasmo Smith SEG % 86.0 % Critically high 43.0-75.0 [facility] Comment on above: Performed By: #### C BCMAN #### [facility] [address] [place], [place] [address] Dr. Erasmo Smith WBC 19.0 103/ul Critically high 4.0-11.[address] [facility] Comment on above: Performed By: #### C BCMAN #### [facility] [address] [place], [place] [address] [address] HEAD WO CONon [...] acute intracranial pathology. Electronically authenticated by: SALOME Maki: 2022 14:50 Normal [facility] CULTURE BLOODon 2022 Microscopic examination of blood, culture Culture Observations: Aerobic and Anaerobic bottle positive. BCID: E. Coli Culture Observations: Refer to for VIOLET. Isolate 1 Escherichia coli Growth of Normal [facility] Comment on above: Performed By: #### B LDCX2 ####[facility] [address] [id number]. Erasmo Smith [facility]11 SARS-CoV-2 (COVID-19) RNA EMILY+probe Ql (Unsp spec) Not detected Normal NOT DETECTED The [facility] Comment on above: Result Comment: When [...] for this test is supported by the Metallurgy Laboratory Technician of Health and Human Service's declaration that [...] used). Performed By: #### C MREP #### [facility] [address] [place], [place] [address] Dr. Erasmo Smiht LACTATE/LACTIC ACIDon 2022 Lactate [Moles/Vol] 1.2 mmol/L Normal 0.4-2.0 [facility] Comment on above: Performed By: #### L ACT ####[facility] [address] [place], [place] [address]GtDr. Erasmo Smith PH VENOUS BLOODon 2022 PCO2 VENOUS 37.8 mmHg Critically low 40.0-52.0 The [facility] Comment on above: Performed By: #### P JOHNEN ####[facility] [address] [address]Dr. Erasmo Smith pH VENOUS 7.417 Normal 7.330-7.430 [facility] Comment on above: Performed By: #### P FEDERICO ####[facility] [address] [address]DrMeena Smith PROF 14(COMP METB)on 023 Albumin [Mass/Vol] 3.1 g/dL Critically low 3.4-5.0 [facility] Comment on above: Performed By: #### Kymberly BELTRE, CMP ####[facility] [address] [address]Dr. Erasmo Smith Albumin/Globulin [Mass ratio] 0.8 {ratio} Normal [facility] Comment on above: Performed By: #### Kymberly BELTRE, CMP ####[facility] [address] [address]Dr. Erasmo Smith ALP [Catalytic activity/Vol] 194 U/L Critically high 46-116 [facility] Comment on above: Performed By: #### Kymberly BELTRE, CMP ####[facility] [address] [place], [place] [address]Dr. Erasmo Smith ALT [Catalytic activity/Vol] 37 U/L Normal 14-59 [facility] Comment on above: Performed By: #### Kymberly BELTRE, CMP ####[facility] [address] [address]DrMeena Smith Anion gap [Moles/Vol] 14.6 mmol/L Normal [facility] Comment on above: Performed By: #### Kymberly BELTRE, CMP ####[facility] [address] [address]Dr. Erasmo Smith AST [Catalytic activity/Vol] 32 U/L Normal 15-37 [facility] Comment on above: Performed By: #### Kymberly BELTRE, CMP ####[facility] [address] [address]Dr. Erasmo Smith Bilirubin [Mass/Vol] 1.0 mg/dL Normal 0.2-1.0 The [facility] Comment on above: Performed By: #### H ALEXSANDER, CMP ####[facility] [address] [place], [place] [address]Dr. Erasmo Smith Calcium [Mass/Vol] 8.9 mg/dL Normal 8.5-10.1 [facility] Comment on above: Performed By: #### H ALEXSANDER, CMP ####[facility] [address] [place], [place] [address]Dr. Erasmo Smith Chloride [Moles/Vol] 103 mmol/L Normal 98-107 [facility] Comment on above: Performed By: #### H ALEXSANDER, CMP ####[facility] [address] [place], [place] [address]Dr. Erasmo Smith CO2 [Moles/Vol] 23.6 mmol/L Normal 21.0-32.0 [facility] Comment on above: Performed By: #### H ALEXSANDER, CMP ####[facility] [address] [place], [place] [address]Dr. Erasmo Smith Creatinine [Mass/Vol] 0.69 mg/dL Normal 0.55-1.02 [facility] Comment on above: Performed By: #### H ALEXSANDER, CMP ####[facility] [address] [place], [place] [address]Dr. Erasmo Smith EGFR-AF GHANAIAN >60 Normal >=60 [facility] Comment on above: Performed By: #### H ALEXSANDER, CMP ####[facility] [address] [place], [place] [address]Dr. Erasmo Smith EGFR-NON AF GHANAIAN >60 Normal >=60 [facility] Comment on above: Performed By: #### H ALEXSANDER, CMP ####[facility] [address] [place], [place] [address]Dr. Erasmo Smith Globulin (S) [Mass/Vol] 4.1 g/dL Normal [facility] Comment on above: Performed By: #### H ALEXSANDER, CMP ####[facility] [address] [place], [place] [address]Dr. Erasmo Smith Glucose [Mass/Vol] 121 mg/dL Critically high 74-106 [facility] Comment on above: Performed By: #### H ALEXSANDER, CMP ####[facility] [address] [address]Dr. Erasmo Smith Potassium [Moles/Vol] 3.2 mmol/L Critically low 3.5-5.1 [facility] Comment on above: Performed By: #### H ALEXSANDER, CMP ####[facility] [address] [address]Dr. Erasmo Smith Protein [Mass/Vol] 7.2 g/dL Normal 6.4-8.2 The [facility] Comment on above: Performed By: #### H ALEXSANDER, CMP ####[facility] [address] [address]Dr. Erasmo Smith Sodium [Moles/Vol] 138 mmol/L Normal 136-145 [facility] Comment on above: Performed By: #### H ALEXSANDER, CMP ####[facility] [address] [address]Dr. Erasmo Smith Urea nitrogen [Mass/Vol] 17.0 mg/dL Normal 7.0-18.0 [facility] Comment on above: Performed By: #### Kymberly BELTRE, CMP ####[facility] [address] [address]Dr. Erasmo Smith Urea nitrogen/Creatinine [Mass ratio] 24.6 mg/mg Normal [facility] Comment on above: Performed By: #### H ALEXSANDER, CMP ####[facility] [address] [address]Dr. Erasmo Smith PROTIMEon 2022 INR Coag (PPP) [Relative time] 3.58 {INR} Normal [facility] Comment on above: Performed By: #### P T, PTT #### [facility] [address] [address] [address] Erasmo Smith INR GUIDELINES SEE BELOW Normal [facility] Comment on above: Result Comment: ABNER RED INR: 2.0 - 3.0 CONDITIONS NOT LISTED BELOW 2.5 - 3.5 FOR PROSTHETIC HEART VALVE REPLACEMENT 2.5 - 3.5 RECURRENT THROMBOSIS Performed By: #### P T, PTT #### [facility] [address] [place] [address] Dr. Erasmo Smith PT Coag (PPP) [Time] 35.3 s Critically high 9.0-11.6 [facility] Comment on above: Performed By: #### P T, PTT #### [facility] [address] [place] [address] Dr. Erasmo Smith PTTon 2022 aPTT Coag (Bld) [Time] 40.3 s Critically high 22.3-36. 2 [facility] Comment on above: Performed By: #### P T, PTT #### [facility] [address] [place] [address] Dr. Erasmo Smith TROPONIN, HIGH SENSITIVITYon 2022 HSTROP 194.7 pg/mL Critically high 4.0-51.3 The [facility] Comment on above: Result Comment: CUT- OFF POINTS HAVE BEEN ESTABLISHED BASED ON THE FOURTH UNIVERSAL DEFINITIONS OF MYOCARDIAL INFARCTION. THE UPPER REFERENCE LIMIT (URL) OF TROPONIN, DEFINED THE 99TH PERCENTILE OF cTnI DISTRIBUTION IN A REFERENCE POPULATION, HAS BEEN CONFIRMED THE DECISION THRESHOLD FOR [place] DIAGNOSIS. Performed By: #### C MREP #### [facility] [address] [place] [address] Dr. Erasmo Smith HSTROP 218.0 pg/mL Critically high 4.0-51.3 [facility] Comment on above: Result Comment: CUT- OFF POINTS HAVE BEEN ESTABLISHED BASED ON THE FOURTH UNIVERSAL DEFINITIONS OF MYOCARDIAL INFARCTION. THE UPPER REFERENCE LIMIT (URL) OF TROPONIN, DEFINED THE 99TH PERCENTILE OF cTnI DISTRIBUTION IN A REFERENCE POPULATION, HAS BEEN CONFIRMED THE DECISION THRESHOLD FOR [place] DIAGNOSIS. Performed By: #### B TOLL SETTLEMENT CLERK #### [facility] [address] [place] [address] Dr. Erasmo Smith XR CHEST 1 Von [...] by: HONG ALSTON Date: 2022 14:18 Normal [facility] MAMM SCREEN 3D TOÑITO CADon 11-26-2022 MG MAMM SCREEN 3D TOÑITO CAD Patient: BREANN STARKS Exam Date: 11/26/2022 : 1945 Gender:F Ordering : DR LUISANA JOHNSON . Admission #: [id number] Family : Order #: [id number] CLICK HERE TO VIEW EXAM RADIOLOGY REPORT [...] Treatments None Family Cancers None LOCATION: The [facility] BREAST COMPOSITION: Heterogeneously dense,which may obscure [...] Brown M.D. on 11/26/2022 at 14:13 Normal [facility] PROF 14(COMP METB)on 022 Albumin [Mass/Vol] 3.8 g/dL Normal 3.4-5.0 [facility] Comment on above: Performed By: #### C MREP #### [facility] [address] [place] [address] Dr. Erasmo Smith Albumin/Globulin [Mass ratio] 0.8 {ratio} Normal [facility] Comment on above: Performed By: #### C MREP #### [facility] [address] [place] [address] Dr. Erasmo Smith ALP [Catalytic activity/Vol] 102 U/L Normal 46-116 [facility] Comment on above: Performed By: #### C MREP #### [facility] [address] [place] [address] Dr. Erasmo Smith ALT [Catalytic activity/Vol] 47 U/L Normal 14-59 [facility] Comment on above: Performed By: #### C MREP #### [facility] [address] [place] [address] Dr. Erasmo Smith Anion gap [Moles/Vol] 12.5 mmol/L Normal [facility] Comment on above: Performed By: #### C MREP #### [facility] [address] [place] [address] Dr. Erasmo Smith AST [Catalytic activity/Vol] 36 U/L Normal 15-37 [facility] Comment on above: Performed By: #### C MREP #### [facility] [address] [place] [address] Dr. Erasmo Smith Bilirubin [Mass/Vol] 0.3 mg/dL Normal 0.2-1.0 [facility] Comment on above: Performed By: #### C MREP #### [facility] [address] [place] [address] Dr. Erasmo Smith Calcium [Mass/Vol] 8.9 mg/dL Normal 8.5-10.1 [facility] Comment on above: Performed By: #### C MREP #### [facility] [address] [place] [address] Dr. Erasmo Smith Chloride [Moles/Vol] 106 mmol/L Normal 98-107 [facility] Comment on above: Performed By: #### C MREP #### [facility] [address] [place] [address] Dr. Erasmo Smith CO2 [Moles/Vol] 26.9 mmol/L Normal 21.0-32.[address] [facility] Comment on above: Performed By: #### C MREP #### [facility] [address] [place] [address] Dr. Erasmo Smith Creatinine [Mass/Vol] 0.79 mg/dL Normal 0.55-1.02 [facility] Comment on above: Performed By: #### C MREP #### [facility] [address] [place] [address] Dr. Erasmo Smith EGFR-AF GHANAIAN >60 Normal >=[address] [facility] Comment on above: Performed By: #### C MREP #### [facility] [address] [place] [address] Dr. Erasmo Smith EGFR-NON AF GHANAIAN >60 Normal >=60 [facility] Comment on above: Performed By: #### C MREP #### [facility] [address] [place] [address] Dr. Erasmo Smith Globulin (S) [Mass/Vol] 4.6 g/dL Normal [facility] Comment on above: Performed By: #### C MREP #### [facility] [address] [place] [address] Dr. Erasmo Smith Glucose [Mass/Vol] 102 mg/dL Normal 74-106 [facility] Comment on above: Performed By: #### C MREP #### [facility] [address] [place] [address] Dr. Erasmo Smith Potassium [Moles/Vol] 4.4 mmol/L Normal 3.5-5.1 [facility] Comment on above: Performed By: #### C MREP #### [facility] [address] [place] [address] Dr. Erasmo Smith Protein [Mass/Vol] 8.4 g/dL Critically high 6.4-8.2 [facility] Comment on above: Performed By: #### C MREP #### [facility] [address] [place] [address] Dr. Erasmo Smith Sodium [Moles/Vol] 141 mmol/L Normal 136-145 [facility] Comment on above: Performed By: #### C MREP #### [facility] [address] [place] [address] Dr. Erasmo Smith Urea nitrogen [Mass/Vol] 28.0 mg/dL Critically high 7.0-18.0 [facility] Comment on above: Performed By: #### C MREP #### [facility] [address] [place] [address] Dr. Erasmo Smith Urea nitrogen/Creatinine [Mass ratio] 35.4 mg/mg Normal [facility] Comment on above: Performed By: #### C MREP #### [facility] [address] [place] [address] Dr. Erasmo Smith CBC AUTO DIFFon 07-12-2022 BASO # 0.1 103/ul Normal 0.0-0.1 [facility] Comment on above: Performed By: #### B TOLL SETTLEMENT CLERK #### [facility] [address] [place] [address] Dr. Erasmo Smith Basophils/100 WBC (Bld) 0.5 % Normal 0.2-2.0 [facility] Comment on above: Performed By: #### B TOLL SETTLEMENT CLERK #### [facility] [address] [place] [address] Dr. Erasmo Smith EO # 0.2 103/ul Normal 0.0-0.7 [facility] Comment on above: Performed By: #### B TOLL SETTLEMENT CLERK #### [facility] [address] [place] [address] Dr. Eramso Smith Eosinophils/100 WBC (Bld) 2.5 % Normal 0.9-7.0 [facility] Comment on above: Performed By: #### B TOLL SETTLEMENT CLERK #### [facility] [address] [place] [address] Dr. Erasmo Smith Erythrocyte distribution width (RBC) [Ratio] 17.2 % Critically high 11.0-15.0 [facility] Comment on above: Performed By: #### B TOLL SETTLEMENT CLERK #### [facility] [address] [place] [address] Dr. Erasmo Smith Hematocrit (Bld) [Volume fraction] 35.0 % Critically low 36.0-48.0 [facility] Comment on above: Performed By: #### B TOLL SETTLEMENT CLERK #### [facility] [address] [place] [address] Dr. Erasmo Smith Hemoglobin (Bld) [Mass/Vol] 11.3 g/dL Critically low 12.0-16.0 [facility] Comment on above: Performed By: #### B TOLL SETTLEMENT CLERK #### [facility] [address] [place] [address] Dr. Erasmo Smith IG # 0.02 10e3/ul Normal 0.00-0.03 [facility] Comment on above: Performed By: #### B TOLL SETTLEMENT CLERK #### [facility] [address] [place] [address] Dr. Erasmo Smith IG % 0.2 % Normal 0.0-0.5 [facility] Comment on above: Performed By: #### B TOLL SETTLEMENT CLERK #### [facility] [address] [place] [address] Dr. Erasmo Smith LYMPH # 2.3 103/ul Normal 1.2-3.8 [facility] Comment on above: Performed By: #### B TOLL SETTLEMENT CLERK #### [facility] [address] [place] [address] Dr. Erasmo Smith Lymphocytes/100 WBC (Bld) 25.4 % Normal 20.5-60.0 [facility] Comment on above: Performed By: #### B TOLL SETTLEMENT CLERK #### [facility] [address] [place] [address] Dr. Erasmo Smith MANUAL DIFF REQ NO Normal [facility] Comment on above: Performed By: #### B TOLL SETTLEMENT CLERK #### [facility] [address] [place] [address] Dr. Erasmo Smith MCH (RBC) [Entitic mass] 25.5 pg Critically low 26.7-34.0 [facility] Comment on above: Performed By: #### B TOLL SETTLEMENT CLERK #### [facility] [address] [place] [address] Dr. Erasmo Smith MCHC (RBC) [Mass/Vol] 32.3 g/dL Normal 29.9-35.2 [facility] Comment on above: Performed By: #### B TOLL SETTLEMENT CLERK #### [facility] [address] [place] [address] Dr. Erasmo Smith MCV (RBC) [Entitic vol] 78.8 fL Critically low 81.0-99.0 [facility] Comment on above: Performed By: #### B TOLL SETTLEMENT CLERK #### [facility] [address] [place] [address] Dr. Erasmo Smith MONO # 0.7 103/ul Normal 0.3-0.8 [facility] Comment on above: Performed By: #### B TOLL SETTLEMENT CLERK #### [facility] [address] [place] [address] Dr. Erasmo Smith Monocytes/100 WBC (Bld) 7.5 % Normal 1.7-12.0 [facility] Comment on above: Performed By: #### B TOLL SETTLEMENT CLERK #### [facility] [address] [place] [address] Dr. Erasmo Smith NEUT # 5.9 103/ul Normal 1.4-6.5 [facility] Comment on above: Performed By: #### B TOLL SETTLEMENT CLERK #### [facility] [address] [place] [address] Dr. Erasmo Smith Neutrophils/100 WBC (Bld) 63.9 % Normal 43.0-75.0 [facility] Comment on above: Performed By: #### B TOLL SETTLEMENT CLERK #### [facility] [address] [place] [address] Dr. Erasmo Smith Platelet mean volume (Bld) [Entitic vol] 9.0 fL Critically low 9.5-13.5 [facility] Comment on above: Performed By: #### B TOLL SETTLEMENT CLERK #### [facility] [address] [place] [address] Dr. Erasmo Smith PLT 305 103/ul Normal 150-450 [facility] Comment on above: Performed By: #### B TOLL SETTLEMENT CLERK #### [facility] [address] [place] [address] Dr. Erasmo Smith RBC 4.44 106/ul Normal 4.20-5.40 [facility] Comment on above: Performed By: #### B TOLL SETTLEMENT CLERK #### [facility] [address] [place], [place] [address] Dr. Erasmo Smith WBC 9.2 103/ul Normal 4.0-11.0 [facility] Comment on above: Performed By: #### B TOLL SETTLEMENT CLERK #### [facility] [address] [place], [place] [address] CHEST WO CONon [...] by: PAULA BROWN Date: 2022-05-27 15:27 Normal [facility] HEMOGLOBINon 04-20-2022 Hemoglobin (Bld) [Mass/Vol] 10.6 g/dL Critically low 12.0-16.0 [facility] Comment on above: Performed By: #### H GB ####[facility] [address] [place], [place] [address]BpDr. Erasmo Smith CULTURE SPUTUMon 04-02-2022 CULTURE SPUTUM Isolate 1 Pseudomonas aeruginosa Light growth of ORGANISM 1 Pseudomonas aeruginosa ANTIBIOTIC M.I.C RX STATUS Piperacillin/Tazobac saez 8 S F Ceftazidime 2 S F Imipenem 1 S F Amikacin <=2 S F Gentamicin <=1 S F Tobramycin <=1 S F Ciprofloxacin <=0.25 S F Levofloxacin 0.25 S F Normal [facility] Comment on above: Performed By: #### S PUTCX ####[facility] [address] [place] [address]Dr. Erasmo Smith CYTOLOGYon 03-30-2022 SENT TO REF LAB 03/31/22 [facility] Comment on above: Performed By: #### C YTO #### [facility] [address] [place] [address] [address] Erasmo Smith SPUTUM GRAM STAINon 03-30-20 COMMENTS [facility] Comment on above: Performed By: #### B TOLL SETTLEMENT CLERK #### [facility] [address] [place] [address] Dr. Erasmo Smith DIPHTHEROIDS [facility] Comment on above: Performed By: #### B TOLL SETTLEMENT CLERK #### [facility] [address] [place] [address] [address] Erasmo Smith EPITHELIALS <25 Normal [facility] Comment on above: Performed By: #### B TOLL SETTLEMENT CLERK #### [facility] [address] [place] [address] [address] Erasmo Smith FUNGAL ELEMENTS [facility] Comment on above: Performed By: #### B TOLL SETTLEMENT CLERK #### [facility] [address] [place] [address] [address] Erasmo CINTRON NEG BACILLI FEW Normal [facility] Comment on above: Performed By: #### B TOLL SETTLEMENT CLERK #### [facility] [address] [place] [address] [address] Erasmo CINTRON NEG DIPPLOCOCCI [facility] Comment on above: Performed By: #### B TOLL SETTLEMENT CLERK #### [facility] [address] [place] [address] [address] Erasmo CINTRON POS BACILLI [facility] Comment on above: Performed By: #### B TOLL SETTLEMENT CLERK #### [facility] [address] [address] [address] Erasmo Smith GRAM POSITIVE COCCI MANY Normal [facility] Comment on above: Performed By: #### B TOLL SETTLEMENT CLERK #### [facility] [address] [address] [address] Erasmo Smith WBC (Bld) [#/Vol] 10*3/uL Normal [facility] Comment on above: Performed By: #### B TOLL SETTLEMENT CLERK #### [facility] [address] [address] [address] Erasmo Smith SPUTUM CULTUREon 03-01-2022 Epithelial cells LM Ql (Urine sed) Few Normal [facility] Comment on above: Performed By: #### C XSPTUM ####[facility] [address] [place] [address]Dr. Erasmo Smith Gram Stain Evaluation Comment Normal [facility] Comment on above: Result Comment: This specimen is of good quality and is acceptable for routine bacterial culture. Performed By: #### C XSPTUM ####[facility] [address] [place] [address]Dr. Erasmo Smith Lower Respiratory Culture Final report Normal [facility] Comment on above: Performed By: #### C XSPTUM ####[facility] [address] [place] [address]Dr. Erasmo Smith Result 1 Comment Normal [facility] Comment on above: Result Comment: Few gram positive cocci Performed By: #### C XSPTUM ####[facility] [address] [place] [address]Dr. rEasmo Smith Result Comment: Rout ine respiratory adria Result 2 Normal The [facility] Comment on above: Performed By: #### C XSPTUM ####[facility] [address] [place] [address]Dr. Erasmo Smith Result 3 Normal The [facility] Comment on above: Performed By: #### C XSPTUM ####[facility] [address] [place], [place] [address]Dr. Erasmo Smith Result 4 Normal The [facility] Comment on above: Performed By: #### C XSPTUM ####[facility] [address] [place] [address]DrMeena Smith White Blood Cells Few Normal The [facility] Comment on above: Performed By: #### C XSPTUM ####[facility] [address] [place] [address]Dr. Erasmo Smith BNPon 02-24-2022 Natriuretic peptide B (Bld) [Mass/Vol] 319.0 pg/mL Normal <=900.0 [facility] Comment on above: Performed By: #### B TOLL SETTLEMENT CLERK #### [facility] [address] [place] [address] Dr. Erasmo Smith CBC AUTO DIFFon 02-24-2022 BASO # 0.1 103/ul Normal 0.0-0.1 [facility] Comment on above: Performed By: #### C MREP #### [facility] [address] [place] [address] Dr. Erasmo Smith Basophils/100 WBC (Bld) 0.5 % Normal 0.2-2.0 [facility] Comment on above: Performed By: #### C MREP #### [facility] [address] [place] [address] Dr. Erasmo Smith EO # 0.3 103/ul Normal 0.0-0.7 [facility] Comment on above: Performed By: #### C MREP #### [facility] [address] [place] [address] Dr. Erasmo Smith Eosinophils/100 WBC (Bld) 3.1 % Normal 0.9-7.0 [facility] Comment on above: Performed By: #### C MREP #### [facility] [address] [place] [address] Dr. Erasmo Smith Erythrocyte distribution width (RBC) [Ratio] 15.1 % Critically high 11.0-15.0 [facility] Comment on above: Performed By: #### C MREP #### [facility] [address] [place] [address] Dr. Erasmo Smith Hematocrit (Bld) [Volume fraction] 33.9 % Critically low 36.0-48.0 [facility] Comment on above: Performed By: #### C MREP #### [facility] [address] [place] [address] Dr. Erasmo Smith Hemoglobin (Bld) [Mass/Vol] 10.7 g/dL Critically low 12.0-16.0 [facility] Comment on above: Performed By: #### C MREP #### [facility] [address] [place] [address] Dr. Erasmo Smith IG # 0.03 10e3/ul Normal 0.00-0.03 [facility] Comment on above: Performed By: #### C MREP #### [facility] [address] [place] [address] Dr. Erasmo Smith IG % 0.3 % Normal 0.0-0.5 [facility] Comment on above: Performed By: #### C MREP #### [facility] [address] [place] [address] Dr. Erasmo Smith LYMPH # 2.8 103/ul Normal 1.2-3.8 [facility] Comment on above: Performed By: #### C MREP #### [facility] [address] [place] [address] Dr. Erasmo Smith Lymphocytes/100 WBC (Bld) 30.6 % Normal 20.5-60.0 [facility] Comment on above: Performed By: #### C MREP #### [facility] [address] [place] [address] Dr. Erasmo Smith MANUAL DIFF REQ NO Normal [facility] Comment on above: Performed By: #### C MREP #### [facility] [address] [place] [address] Dr. Erasmo Smith MCH (RBC) [Entitic mass] 26.9 pg Normal 26.7-34.0 [facility] Comment on above: Performed By: #### C MREP #### [facility] [address] [place] [address] Dr. Erasmo Smith MCHC (RBC) [Mass/Vol] 31.6 g/dL Normal 29.9-35.2 [facility] Comment on above: Performed By: #### C MREP #### [facility] [address] [place] [address] Dr. Erasmo Smith MCV (RBC) [Entitic vol] 85.2 fL Normal 81.0-99.0 [facility] Comment on above: Performed By: #### C MREP #### [facility] [address] [place] [address] Dr. Erasmo Smith MONO # 0.7 103/ul Normal 0.3-0.8 [facility] Comment on above: Performed By: #### C MREP #### [facility] [address] [place] [address] Dr. Erasmo Smith Monocytes/100 WBC (Bld) 7.9 % Normal 1.7-12.0 [facility] Comment on above: Performed By: #### C MREP #### [facility] [address] [place] [address] Dr. Erasmo Smith NEUT # 5.3 103/ul Normal 1.4-6.5 [facility] Comment on above: Performed By: #### C MREP #### [facility] [address] [place] [address] Dr. Erasmo Smith Neutrophils/100 WBC (Bld) 57.6 % Normal 43.0-75.0 [facility] Comment on above: Performed By: #### C MREP #### [facility] [address] [place] [address] Dr. Erasmo Smith Platelet mean volume (Bld) [Entitic vol] 9.0 fL Critically low 9.5-13.5 The [facility] Comment on above: Performed By: #### C MREP #### [facility] [address] [place] [address] Dr. Erasmo Smith PLT 249 103/ul Normal 150-450 [facility] Comment on above: Performed By: #### C MREP #### [facility] [address] [place] [address] Dr. Erasmo Smith RBC 3.98 106/ul Critically low 4.20-5.40 [facility] Comment on above: Performed By: #### C MREP #### [facility] [address] [place] [address] Dr. Erasmo Smith WBC 9.1 103/ul Normal 4.0-11.0 [facility] Comment on above: Performed By: #### C MREP #### [facility] [address] [address] [address] Erasmo Smith CTA CHEST WO W [...] by: PAULA BROWN Date: 2022-02-24 18:24 Normal [facility] D-DIMERon 02-24-2022 D-DIMER 1.36 mg/L FEU Critically high <=0.59 [facility] Comment on above: Performed By: #### D DIM #### [facility] [address] [place] [address] Dr. Erasmo Smith D-DIMER COMMENTS SEE BELOW Normal [facility] Comment on above: Result Comment: Incr [...] hospitalization. Performed By: #### D DIM #### [facility] [address] [place] [address] Dr. Erasmo Smith PROF 14(COMP METB)on 022 Albumin [Mass/Vol] 3.6 g/dL Normal 3.4-5.0 [facility] Comment on above: Performed By: #### C MREP #### [facility] [address] [place] [address] Dr. Erasmo Smith Albumin/Globulin [Mass ratio] 0.8 {ratio} Normal [facility] Comment on above: Performed By: #### C MREP #### [facility] [address] [place] [address] Dr. Erasmo Smith ALP [Catalytic activity/Vol] 95 U/L Normal 46-116 [facility] Comment on above: Performed By: #### C MREP #### [facility] [address] [place] [address] Dr. Erasmo Smith ALT [Catalytic activity/Vol] 45 U/L Normal 14-59 [facility] Comment on above: Performed By: #### C MREP #### [facility] [address] [place] [address] Dr. Erasmo Smith Anion gap [Moles/Vol] 15.9 mmol/L Normal [facility] Comment on above: Performed By: #### C MREP #### [facility] [address] [place] [address] Dr. Erasmo Smith AST [Catalytic activity/Vol] 33 U/L Normal 15-37 [facility] Comment on above: Performed By: #### C MREP #### [facility] [address] [place] [address] Dr. Erasmo Smith Bilirubin [Mass/Vol] 0.5 mg/dL Normal 0.2-1.0 [facility] Comment on above: Performed By: #### C MREP #### [facility] [address] [place] [address] Dr. Erasmo Smith Calcium [Mass/Vol] 9.1 mg/dL Normal 8.5-10.1 [facility] Comment on above: Performed By: #### C MREP #### [facility] [address] [place] [address] Dr. Erasmo Smith Chloride [Moles/Vol] 103 mmol/L Normal 98-107 [facility] Comment on above: Performed By: #### C MREP #### [facility] [address] [place] [address] Dr. Erasmo Smith CO2 [Moles/Vol] 25.1 mmol/L Normal 21.0-32.[address] [facility] Comment on above: Performed By: #### C MREP #### [facility] [address] [place] [address] Dr. Erasmo Smith Creatinine [Mass/Vol] 0.77 mg/dL Normal 0.55-1.02 [facility] Comment on above: Performed By: #### C MREP #### [facility] [address] [place] [address] Dr. Erasmo Smith EGFR-AF GHANAIAN >60 Normal >=[address] [facility] Comment on above: Performed By: #### C MREP #### [facility] [address] [place] [address] Dr. Erasmo Smith EGFR-NON AF GHANAIAN >60 Normal >=60 [facility] Comment on above: Performed By: #### C MREP #### [facility] [address] [place] [address] Dr. Erasmo Smith Globulin (S) [Mass/Vol] 4.3 g/dL Normal [facility] Comment on above: Performed By: #### C MREP #### [facility] [address] [place] [address] Dr. Erasmo Smith Glucose [Mass/Vol] 92 mg/dL Normal 74-106 [facility] Comment on above: Performed By: #### C MREP #### [facility] [address] [address] [address] Erasmo Smith Potassium [Moles/Vol] 4.0 mmol/L Normal 3.5-5.1 [facility] Comment on above: Performed By: #### C MREP #### [facility] [address] [address] [address] Erasmo Smith Protein [Mass/Vol] 7.9 g/dL Normal 6.4-8.2 [facility] Comment on above: Performed By: #### C MREP #### [facility] [address] [address] [address] Erasmo Smith Sodium [Moles/Vol] 140 mmol/L Normal 136-145 [facility] Comment on above: Performed By: #### C MREP #### [facility] [address] [address] [address] Erasmo Smith Urea nitrogen [Mass/Vol] 17.0 mg/dL Normal 7.0-18.0 [facility] Comment on above: Performed By: #### C MREP #### [facility] [address] [address] [address] Erasmo Smith Urea nitrogen/Creatinine [Mass ratio] 22.1 mg/mg Normal [facility] Comment on above: Performed By: #### C MREP #### [facility] [address] [address] [address] Erasmo Smith PROTIMEon 02-24-2022 INR Coag (PPP) [Relative time] 2.28 {INR} Normal [facility] Comment on above: Performed By: #### P T, PTT ####[facility] [address] [place] [address]Dr. Erasmo Smith INR GUIDELINES SEE BELOW Normal [facility] Comment on above: Result Comment: ABNER RED INR: 2.0 - 3.0 CONDITIONS NOT LISTED BELOW 2.5 - 3.5 FOR PROSTHETIC HEART VALVE REPLACEMENT 2.5 - 3.5 RECURRENT THROMBOSIS Performed By: #### P T, PTT ####[facility] [address] [place] [address]DrMeena Smith PT Coag (PPP) [Time] 23.3 s Critically high 9.0-11.6 [facility] Comment on above: Performed By: #### P T, PTT ####[facility] [address] [place], [place] [address]RsDr. Erasmo Smith PTTon 02-24-2022 aPTT Coag (Bld) [Time] 34.7 s Normal 22.3-36.2 Th e [facility] Comment on above: Performed By: #### P T, PTT ####[facility] [address] [place], [place] [address]Np. Erasmo Smith TROPONIN, HIGH SENSITIVITYon 02-24-2022 HSTROP 6.6 pg/mL Normal 4.0-51.3 [facility] Comment on above: Result Comment: CUT- OFF POINTS HAVE BEEN ESTABLISHED BASED ON THE FOURTH UNIVERSAL DEFINITIONS OF MYOCARDIAL INFARCTION. THE UPPER REFERENCE LIMIT (URL) OF TROPONIN, DEFINED THE 99TH PERCENTILE OF cTnI DISTRIBUTION IN A REFERENCE POPULATION, HAS BEEN CONFIRMED THE DECISION THRESHOLD FOR [place] DIAGNOSIS. Performed By: #### C MREP #### [facility] [address] [place], [place] [address] Dr. Erasmo Smith PROTHROMBIN TIMEon 2 INR Coag (PPP) [Relative time] 1.2 {INR} High 0.86-1.16 [facility] Comment on above: Result Comment: INR Theraputic Range: 2.0-3.5 Performed [place] [facility] [place] [id number] [place] [id number] PT Coag (PPP) [Time] 12.7 s Normal 9.3-12.7 [facility] ANTICOAGULANT COUMADIN Normal [facility] Vital Signs Date Time Vital Sign Value Performing Clinician Facility 05-22-2024 [id number] Body height 149.9 cm Boo Buchanan PA-C Work Phone: [facility] [id number] Body mass index (BMI) [Ratio] 44.43 kg/m2 Boo Buchanan PA-C Work Phone: [facility] 05-22-2024 13:[id number] Body weight 99.79 kg Boo Buchanan PA-C Work Phone: [facility] 03-02-2024 11:51-0400 Blood Pressure Location [facility] 03-02-2024 11:51-0400 Diastolic blood pressure 75 mm[Hg] [facility] [facility] [place] 03-02-2024 11:51-0400 Heart rate 71 /min Ortega NILL [facility] 03-02-2024 11:51-0400 Respiratory rate 16 /min Ortega NILL [facility] 03-02-2024 11:51-0400 Systolic blood pressure 118 mm[Hg] Ortega NILL [facility] 10-07-2021 16:00-0500 Body height 146.69 cm Hong Nevarez Other [employer] [facility] [employer] Other 10-07-2021 16:00-0500 Body mass index (BMI) [Ratio] 51.01 kg/m2 Hong Nevarez Other [employer] Other 10-07-2021 16:00-0500 Body weight 109.77 kg Hong Geri Other [employer] Other 08-26-2021 15:15-0500 Body height 146.69 cm Hong Nevarez Other [employer] Other 08-26-2021 15:15-0500 Body mass index (BMI) [Ratio] 51.07 kg/m2 Hong Jimenezkes Other [employer] Other 08-26-2021 15:15-0500 Body weight 109.91 kg Hong Nevarez Other [facility] [employer] Other Encounters Encounter Date Encounter Type Care Provider Facility Start: 06-19-2024 End: 06-19-2024 ambulatory YANCY HENNESSY [facility] Start: 06-18-2024 End: 06-18-2024 Refill Monster Calvillo TOLL SETTLEMENT CLERK Work Phone: [facility] Comment on above: Acute on chronic nisa stolic (congestive) heart failure ([facility]/HCC) Start: 05-31-2024 End: 05-31-2024 ambulatory MONSTER CALVILLO Not Available Start: 05-22-2024 End: 05-22-2024 ambulatory Jyothi Cruz RT(R) Radiology Comment on above: Radiology XR Start: 05-22-2024 End: 05-22-2024 Patient encounter procedure Jyothi Cruz RT(R) Radiology Comment on above: 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); Left shoulder pain, unspecified chronicity Start: 05-22-2024 End: 05-22-2024 Subsequent hospital visit by physician Federico Bruner 1 Work Phone: Radiology Comment on above: Left shoulder pain, unspecified chronicity [M25.512] Start: 05-09-2024 End: 05-09-2024 ambulatory SAKINA MARIO Not Available Start: 05-02-2024 End: 05-02-2024 Patient encounter procedure MD Shaikh Denis Work Phone: [facility] Work Phone: Start: 05-02-2024 End: 05-02-2024 ambulatory MD Shaikh Denis Work Phone: [facility] Work Phone: Start: 04-16-2024 End: 04-16-2024 ambulatory PEDRO PABLO CRUZ Not Available Start: 04-16-2024 End: 04-16-2024 ambulatory Miguel Murphy MD Facility:[facility] Start: 04-11-2024 End: 04-11-2024 ambulatory SHAIKH CIRA Not Available Start: 04-10-2024 End: 04-10-2024 Patient encounter procedure MD Shaikh Denis Work Phone: [facility] Work Phone: Start: 04-10-2024 End: 04-10-2024 ambulatory MD Shaikh Denis Work Phone: [facility] Work Phone: Start: 04-02-2024 End: 04-02-2024 ambulatory Miguel Murphy MD Facility:[facility] Start: 03-29-2024 End: 03-29-2024 Patient encounter procedure MD Shaikh Denis Work Phone: [facility] Start: 03-29-2024 End: 03-29-2024 ambulatory MD Shaikh Denis Work Phone: [facility] Work Phone: Start: 03-12-2024 End: 03-12-2024 ambulatory SHAIKH CIRA Not Available Start: 03-07-2024 End: 03-07-2024 ambulatory Ortega ALEXANDER Facility:CD:[id number] Start: 03-02-2024 End: 03-02-2024 ambulatory Ortega ALEXANDER Facility:[facility] Start: 03-02-2024 End: 03-02-2024 Patient encounter procedure Ortega ALEXANDER [facility] [place] Start: 03-01-2024 ambulatory Ortega ALEXANDER Facility:[facility] Start: 02-27-2024 End: 02-27-2024 ambulatory SHAIKH CIRA Not Available Start: 01-17-2024 End: 01-17-2024 ambulatory [facility] Start: 12-29-2023 End: 12-29-2023 ambulatory SHAIKH CIRA Not Available Start: 12-27-2023 End: 12-27-2023 ambulatory YANCY [facility] Start: 12-26-2023 End: 12-26-2023 ambulatory Miguel Murphy MD Facility:[facility] Start: 12-05-2023 End: 12-05-2023 ambulatory Miguel Murphy MD Facility:[facility] Start: 11-16-2023 End: 11-16-2023 ambulatory Shaikh Cira Facility:[facility] Start: 11-07-2023 End: 11-07-2023 ambulatory SHAIKH CIRA Not Available Start: 10-17-2023 Cristobal Denis MD Work Phone: [facility] Start: 10-17-2023 Cristobal Denis MD Work Phone: [facility] Start: 10-17-2023 End: 10-17-2023 ambulatory SHAIKH CIRA Not Available Start: 10-11-2023 End: 10-11-2023 ambulatory MD Shaikh Denis Work Phone: [facility] Work Phone: Start: 10-11-2023 End: 10-11-2023 Patient encounter procedure MD Shaikh Denis Work Phone: [facility] Work Phone: Start: 09-08-2023 End: 09-08-2023 Patient encounter procedure MD Shaikh Denis Work Phone: [facility] Start: 09-08-2023 End: 09-08-2023 ambulatory MD Shaikh Denis Work Phone: [facility] Work Phone: Start: 09-06-2023 End: 09-06-2023 ambulatory SHAIKH CIRA Not Available Start: 09-06-2023 Patient encounter procedure Shaikh Cira CUBA Work Phone: [facility] Start: 07-08-2023 End: 07-08-2023 ambulatory [facility] Start: 07-05-2023 End: 07-05-2023 ambulatory [facility] Start: 01-31-2023 End: 02-01-2023 ambulatory ANDRIUS GIEDRAITIS [...] Start: 05-13-2022 End: 06-12-2022 ambulatory SHAIKH Kymberly COLÓNJUANAlysa Facility:[facility] Start: 04-20-2022 End: 04-21-2022 ambulatory LUIZ [...] 10-07-2021 End: 10-07-2021 ambulatory Hong Nevarez Other [employer] Other Start: 10-07-2021 Office outpatient visit 15 minutes Hong Nevarez [facility] Gastroenterology Start: 08-26-2021 End: 08-26-2021 ambulatory Hong Nevarez Other [employer] Other Start: 08-26-2021 Office outpatient ne w 45 minutes Hong Nevarez [facility] Gastroenterology Start: 10-11-2020 End: 10-13-2020 Evaluation and management of inpatient ZANE MAYNOR Facility:[facility] Procedures Date Procedure Procedure Detail [...] on above: 06/2012 Arthroscopy of shoulder Brice oliveira XAVIERMariah Comment on above: left shoulder tear r epaired 08/25 Cardiac catheter (ph ysical object) Ortega PARKL Comment on above: 12/21/ mild CAD Colonoscopy Ortega PARKL Comment on above: 2012 repeat 10 years Ligation of fallopian tube Nathan roberts XAVIERL Repair of musculoten dinous cuff of shoulder Ortega XAVIERL Comment on above: right Total abdominal hyst erectomy with bilateral salpingo-oophorectomy Ortega XAVIERL Plan of Treatment Date Care Activity Detail Author Start: 09-12-2027 Screening for malign ant neoplasm of colon [facility] Start: 09-06-2024 Medicare Annual Well ness (AWV) Medicare Annual Wellness (AWV) [facility] Start: 07-05-2024 End: 07-05-2024 Patient encounter procedure 07/05/2024 9:00 AM EDT Office Visit [facility] [address] [facility] [address] [place] [id number] Renny Hansen MD [address] [facility] [address] [place] [address] [facility] Start: 05-22-2024 End: 08-21-2024 C reactive protein [Mass/volume] in Serum or Plasma C-REACTIVE PROTEIN Lab Routine 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) Expected: 05/22/2024, Expires: 08/21/2024 [facility] Comment on above: Expected: 05/22/2024 , Expires: 08/21/2024 Start: 05-22-2024 End: 08-21-2024 CBC W Auto Differential panel - Blood COMPLETE BLOOD COUNT AND DIFFERENTIAL Lab Routine 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) Expected: 05/22/2024, Expires: 08/21/2024 [facility] Comment on above: Expected: 05/22/2024 , Expires: 08/21/2024 Start: 05-22-2024 End: 08-21-2024 Erythrocyte sedimentation rate SEDIMENTATION RATE, WESTERGREN Lab Routine 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) Expected: 05/22/2024, Expires: 08/21/2024 [facility] Comment on above: Expected: 05/22/2024 , Expires: 08/21/2024 Start: 05-13-2024 Covid-19 Vaccine ( season) Covid-19 Vaccine () [facility] Start: 05-13-2024 Influenza vaccination Influenza Vacc ine (#1) [facility] Start: 11-07-2023 End: 11-07-2023 Patient encounter procedure 11/07/2023 2:30 PM EST Office Visit [facility] [address] [place] [phone] Shaikh Denis MD [address] [place] [phone] [facility] Start: 10-17-2023 End: 10-17-2023 Patient encounter procedure 10/17/2023 10:15 AM EST Office Visit [facility] [address] [place] [phone] Shaikh Deins MD [address] [place] [phone] Arrived [facility] Comment on above: Arrived Start: 09-12-2023 Advance Directive Discussion Advance Directive Discussion [facility] Start: 11-30-2012 Screening for osteoporosis Bone Density Screening [facility] Start: 11-30-1997 Shingrix Vaccine (1 of 2) Shingrix Vaccine (1 of 2) [facility] Start: 11-30-1992 Diabetes Screening Diabetes Screenin g [facility] Start: 11-30-1966 Urine microalbumin profile DTaP,Tdap,Td Vaccine (1 - Tdap) [facility] Start: 11-30-1965 Anxiety Screening Anxiety Screening [facility] Start: 11-30-1965 Depression Screening Depression Scre ening [facility] Start: 11-30-1965 Hepatitis C screening Hepatitis C Sc reening [facility] Start: 1945 Screening for malign ant neoplasm of colon [facility] End: 06-21-2025 CT Shoulder - left WO contrast CT SHOULDER WO IVCON LEFT Radiology Routine 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) 1 Occurrences starting 05/22/2024 until 06/21/2025 [facility] Work Phone: Comment on above: 1 Occurrences starti ng 05/22/2024 until 06/21/2025 Immunizations Immunization Date Immunization Notes Care Provider Camilo bhatia 08-25-2023 influenza virus vaccine, unspecified formulation Ortega ALEXANDER [facility] [place] 08-25-2023 Influenza, Seasonal, Quadrivalent, Adjuvanted Monster Calvillo TOLL SETTLEMENT CLERK Work Phone: [facility] 08-25-2023 RSV, recombinant, protein subunit RSVpreF, adjuvant reconstitu, 120mcg/0.5mL, PF (Arexvy) Monster Calvillo TOLL SETTLEMENT CLERK Work Phone: [facility] 07-08-2022 influenza virus vaccine, unspecified formulation Ortega NILL [facility] 07-08-2022 Influenza, Seasonal, Quadrivalent, Adjuvanted Monster Calvillo TOLL SETTLEMENT CLERK Work Phone: [facility] 08-20-2021 influenza virus vaccine, unspecified formulation Ortega NILL [facility] 08-20-2021 Influenza, Seasonal, Quadrivalent, Adjuvanted Monster Calvillo TOLL SETTLEMENT CLERK Work Phone: [facility] 08-20-2021 pneumococcal polysaccharide vaccine, 23 valent Ortega NILL [facility] 11-18-2020 SARS-CoV-2 (COVID-19 ) mRNA-1273 vaccine Ortega NILL [facility] 10-20-2020 SARS-CoV-2 (COVID-19 ) mRNA-1273 vaccine Ortega NILL [facility] 08-04-2020 influenza virus vaccine, unspecified formulation Ortega NILL [facility] 08-04-2020 Influenza, Seasonal, Quadrivalent, Adjuvanted Monster Calvillo TOLL SETTLEMENT CLERK Work Phone: [facility] 08-04-2020 pneumococcal conjuga te vaccine, 13 valent Ortega NILL [facility] 08-06-2019 influenza virus vaccine, unspecified formulation Ortega NILL [facility] 08-06-2019 influenza, high dose seasonal, preservative-free Monster Calvillo TOLL SETTLEMENT CLERK Work Phone: [facility] 07-05-2017 influenza virus vaccine, unspecified formulation Ortega NILL [facility] 07-05-2017 pneumococcal conjuga te vaccine, 13 valent Ortega NILL [facility] 07-05-2017 Seasonal trivalent influenza vaccine, adjuvanted, preservative free Monster Calvillo TOLL SETTLEMENT CLERK Work Phone: [facility] 06-29-2016 influenza virus vaccine, unspecified formulation Ortega NILL [facility] 06-29-2016 Seasonal trivalent influenza vaccine, adjuvanted, preservative free Monster Calvillo TOLL SETTLEMENT CLERK Work Phone: [facility] 06-25-2015 influenza virus vaccine, unspecified formulation Ortega NILL [facility] 06-25-2015 influenza, injectabl e, quadrivalent, contains preservative Monster Calvillo TOLL SETTLEMENT CLERK Work Phone: [facility] 06-12-2015 influenza virus vaccine, unspecified formulation Ortega NILL [facility] 06-12-2015 seasonal influenza, intradermal, preservative free Monster Calvillo TOLL SETTLEMENT CLERK Work Phone: [facility] 07-12-2014 influenza virus vaccine, unspecified formulation Ortega NILL [facility] 07-12-2014 influenza, injectabl e, quadrivalent, contains preservative Monster Calvillo TOLL SETTLEMENT CLERK Work Phone: [facility] 08-07-2013 influenza virus vaccine, unspecified formulation Ortega CATHERINE [facility] 08-07-2013 influenza, seasonal, injectable Monster Calvillo TOLL SETTLEMENT CLERK Work Phone: [facility] Healthcare Payers Date Payer Category Payer Private Health Insurance 2023 Private Health Insurance [id number] 2023 Self-pay [id number] 2023 Managed Care HMO (unspecified) [employer]ET[employer] AETNA [id number] 2023-Present [address] [place] [address] HMO [id number] 2007 Medicare [id number]. [id number] 1959 Medicare [id number] 1959 Private Health Insurance [facility] [id number] 1947 Unknown [id number] 2.16.840.1.367204.3.579.2. 647 1947 Unknown [id number] 2.16.840.1.793539.3.579.2. 593 1947 Unknown [id number] 2.16.840.1.650953.3.579.2. 593 1947 Unknown [id number] 2.16.840.1.041340.3.579.2. 593 1947 Unknown [id number] 2.16.840.1.683871.3.579.2. 593 1947 Unknown [id number] 2.16.840.1.632148.3.579.2. 593 1947 Unknown [id number] 2.16.840.1.989822.3.579.2. 593 1947 Unknown [id number] 2.16.840.1.281222.3.579.2. 593 1947 Unknown [id number] 2.16.840.1.150603.3.579.2. 593 1947 Unknown [id number] 2.16.840.1.166344.3.579.2. 593 1947 Unknown [id number] 2.16.840.1.751329.3.579.2. 593 1947 Unknown [id number] 2.16.840.1.554355.3.579.2. 593 1947 Unknown [id number] 2.16.840.1.471484.3.579.2. 593 1947 Unknown [id number] 2.16.840.1.371404.3.579.2. 593 1947 Unknown [id number] 2.16.840.1.432538.3.579.2. 593 1947 Unknown [id number] 2.16.840.1.339519.3.579.2. 593 1947 Unknown [id number] 2.16.840.1.510797.3.579.2. 593 1947 Unknown [id number] 2.16.840.1.962870.3.579.2. 593 1947 Unknown [id number] 2.16.840.1.435476.3.579.2. 593 1947 Unknown [id number] 2.16.840.1.424430.3.579.2. 593 1947 Unknown [id number] 2.16.840.1.880512.3.579.2. 593 1947 Unknown [id number] 2.16.840.1.920899.3.579.2. 593 1947 Unknown [id number] 2.16.840.1.713615.3.579.2. 593 1947 Unknown [id number] 2.16.840.1.529795.3.579.2. 593 1947 Unknown [id number] 2.16.840.1.524610.3.579.2. 593 1947 Unknown [id number] 2.16.840.1.087138.3.579.2. 593 1947 Unknown [id number] 2.16.840.1.084640.3.579.2. 593 1947 Unknown [id number] 2.16.840.1.409624.3.579.2. 727 1947 Unknown [id number] 2.16.840.1.731118.3.579.2. 727 1947 Unknown [id number] 2.16.840.1.091602.3.579.2. 196 1947 Unknown [id number] 2.16.840.1.571521.3.579.2. 196 1947 Unknown [id number] 2.16.840.1.420896.3.579.2. 196 1947 Unknown [id number] 2.16.840.1.869649.3.579.2. 196 1947 Unknown [id number] 2.16.840.1.931769.3.579.2. 1259 1947 Unknown [id number] 2.16.840.1.947717.3.579.2. 1259 1947 Unknown [id number] 2.16.840.1.346644.3.579.2. 1259 1947 Unknown [id number] 2.16.840.1.879843.3.579.2. 1259 1947 Unknown [id number] 2.16.840.1.469760.3.579.2. 1259 1947 Unknown [id number] 2.840.1.011869.3.579.2. 1258 1947 Unknown [id number] 2.16.840.1.242044.3.579.2. 1259 1947 Unknown [id number] 2.840.1.114237.3.579.2. 1258 1947 Unknown [id number] 2.840.1.830774.3.579.2. 125 1947 Unknown [id number] 2.840.1.098417.3.579.2. 1258 1947 Unknown [id number] 2.840.1.659843.3.579.2. 1258 1947 Unknown [id number] 2.0.1.124610.3.579.2. 125 Medicare Medicare Outpatient [id number] 1A [id number] Unknown [place] [id number] Unknown [id number] 2.840.1.803005.3.579.2. 531 Unknown [id number] 2.0.1.379404.3.579.2. 531 Unknown [id number] 2..1.349578.3.579.2. 531 Unknown [id number] 2.0.1.787017.3.579.2. 531 Unknown [id number] 2.0.1.537351.3.579.2. 531 Unknown [id number] 2.0.1.558295.3.579.2. 531 Social History Date Type Detail Facility Start: 08-30-2023 End: 05-31-2024 Sex Assigned At [facility] Start: 1945 Sex Assigned At Female [facility] Start: 08-18-2023 End: 12-29-2023 Tobacco smoking status NHIS Ex-smoker [facility] History of tobacco use Current smoker [facility] History of tobacco use Cigarette Smoker [facility] Start: 09-02-2023 Alcohol intake Not Asked [facility] Start: 08-30-2023 End: 05-31-2024 History of Social function [facility] Within the last year , have you been afraid of your partner or ex-partner? No [facility] How often do you att end islam or lutheran services? Patient refused [facility] Do you belong to any clubs or organizations such as islam groups, unions, fraternal or athletic groups, or school groups? Yes [facility] Are you now , , , , never or living with a partner? [facility] Do you feel stress - tense, restless, nervous, or anxious, or unable to sleep at night because your mind is troubled all the time - these days [OSQ] Not at all [facility] (I/We) worried wherizwan er (my/our) food would run out before (I/we) got money to buy more. DK or Refused [facility] Start: 08-18-2023 Alcohol Comment (Audit-C) : Negative [facility] Healthcare Start: 1945 Sex Assigned At Not on file [facility] Start: 04-27-2013 End: 05-22-2024 Tobacco smoking status ILIS Never smoked tobacco (finding) [facility] Start: 05-22-2024 Tobacco use and exposure Smokeless tobacco non-user [facility] Start: 05-22-2024 End: 05-31-2024 Alcoholic beverage intake Current drinker of alcohol (finding) [facility] History of tobacco use Passive smoker [facility] Start: 11-07-2023 Alcohol Comment OCCASSIONAL [facility] Functional Status Date Assessment Result Facility 03-02-2024 Functional Status N/A [facility] [place] Clinical Notes 08-26-2021 to 05-22-2024 Boo Buchanan PA-C - 05/22/2024 1:39 PM EDTPJyothi steele RT(Dario) - 05/22/2024 1:25 PM EDT Note Date & Type Note Facility 05-22-2024 Note HNO ID: [id number] Author: BOO BUCHANAN PA-C Service: ? Author Type: Physician Methods Time Analyst Type: Progress Notes Filed: 05/22/2024 13:53 [...] She was recommended for second opinion at [facility]. She also had a CRP and [...] No date: COPD (chronic obstructive pulmonary disease) ([facility]) SOCIAL HISTORY: Tobacco Use: Never EXAMINATION: GENERAL: [...] 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 ([facility]) T84.84XA CT SHOULDER WO IVCON LEFT Z96.612 [...] of the hardware. Bone scan performed at [facility] to be uploaded to the system. Boo Buchanan (more content not included)... [facility] 05-22-2024 History of Present illness Narrative Images [...] She was recommended for second opinion at [facility]. She also had a CRP and [...] No date: COPD (chronic obstructive pulmonary disease) ([facility]) SOCIAL HISTORY: Tobacco Use: Never EXAMINATION: GENERAL: [...] 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 ([facility]) T84.84XA CT SHOULDER WO IVCON LEFT Z96.612 [...] of the hardware. Bone scan performed at [facility]' to be uploaded to the system. Boo Buchanan PA-C documented in this encounter [facility] 05-22-2024 Note HNO ID: [id number] Author: JYOTHI CRUZ RT(Dario) Service: ? Author Type: Technologist Type: Progress [...] PATIENT PRESENTS WITH AN IMPLANTABLE OR ATTACHED ELECTRIC RAZOR ASSEMBLER: No RADIOLOGY DEPARTMENT: General X-ray: Exam(s) Completed: Upper Extremity X-Ray(s): Shoulder, AP / TRUE AP / AXILLARY / SUPRA OUTLET left PERIPHERAL IV DATA: Not applicable SIGNED BY: RT Chaparrita(R) May 22, 2024 1:25 PM [facility] 05-22-2024 History of Present illness Narrative Radiology [...] PATIENT PRESENTS WITH AN IMPLANTABLE OR ATTACHED ELECTRIC RAZOR ASSEMBLER: No RADIOLOGY DEPARTMENT: General X-ray: Exam(s) Completed: Upper Extremity X-Ray(s): Shoulder, AP / TRUE AP / AXILLARY / SUPRA OUTLET left PERIPHERAL IV DATA: Not applicable SIGNED BY: RT Chaparrita(R) May 22, 2024 1:25 PM documented in this encounter [facility] 03-02-2024 Note Chief Complaint consultation for anemia HPI Staff 78 year old female presents on consultation from [facility] for anemia. Labs completed yesterday with [...] PSVT, spinal stenosis, cervical radiculopathy; referred from [facility] ED for anemia, low iron, and [...] (paroxysmal supraventricular t (more content not included)... [facility] Comment on above: Result Comment: Elec tronically [...] All other systems reviewed and are negative. [facility] 01-17-2024 Note Cardiovascular Medic [facility] SUBJECTIVE Chief Complaint Patient presents with Atrial Fibrillation Breann Starks is a 78 y.o. female here for follow-up. HPI PMHx: A-fib, atrial tachycardia s/p ablation 2005, sick sinus syndrome s/p PPM 10/2020 dual-chamber [employer], COPD, mild CAD s/p cardiac cath 2010, SHAWANDA noncompliant with mask, and obesity. She has been doing well since last seen. No significant changes. Denies c/o CP, dyspnea, orthopnea, PND, LE edema, dizziness/LH, palpitations, syncope. Patient Active Problem List Diagnosis Disorder of bursae of shoulder region Chronic obstructive lung disease (CMS/HCC) Atherosclerosis of [place] coronary artery of [place] heart without angina pectoris Diaphragmatic hernia Edema [...] Final Monocytes Absolu (more content not included)... [facility] 07-05-2023 Note [facility] Electrophysiology Consult Note [...] sick sinus syndrome s/p PPM 10/2020 dual-chamber [employer], COPD, mild CAD s/p cardiac cath [...] could not afford DOAC. Patient underwent dual-chamber [employer] pacemaker placement on 10/13/2020. On subsequent [...] both knees Hypocalcemi (more content not included)... [facility] 10-07-2021 Evaluation note Encounter Date Diagnosis Assessment Notes Sep, LOJA (nonalcoholic steatohepatitis ) (ICD-10 - K75.81) OBTAIN FIBROSURE RESULTS FROM [facility] ON RESULTS PT ENCOURAGED WEIGHT LOSS RTO ONE YEAR WITH LABS ANNUALLY Sep, Unspecified cirrhosis of liver (ICD-10 - K74.60) [facility] 12-15-2021 Evaluation note* Encounter Date Diagnosis Assessment Notes Treatment Notes Treatment Clinical Notes Aug, Nonalcoholic steatohepatitis (LOJA) (ICD-10 - K75.81) RTO 6-8 WEEKS Aug, Unspecified cirrhosi s of liver (ICD-10 - K74.60) 15 Aug, 2021 Morbid obesity (ICD- 10 - E66.01) [facility] Other Evaluation + Plan note No data available for this section [facility] [place] Evaluation noteNo assessment information available [facility] Work Phone: Evaluation note* Diagnosis 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)- Primary Left shoulder pain, unspecified chronicity Left shoulder pain, unspecified chronicity [facility] Diagnosis Left shoulder pain, unspecified chronicity [facility] Diagnosis Acute on chronic diastolic (congestive) heart failure (CMS/HCC) documented in this encounter [facility] HealthcareHistory general Narrative - Reported* Type Description Date [...] Surgical History pacemaker Hospitalization History see above [facility] Other Hospital Discharge instructions No data available for this section [facility] Progress note No data available for this section [facility] [place] Reason for referral (narrative)* Diagnostic Procedure Only (Routine) - Closed Specialty Diagnoses / Procedures Referred By Contac t Referred To Contact XR IMAGING Diagnoses Left shoulder pain, unspecified chronicity Procedures XR SHOULDER ORTHO 4V AP/TRUE AP/LAT/OUTLET LEFT RADEX SHOULDER COMPLETE MINIMUM 2 VIEWS Boo Buchanan PA-C [address] [facility] [place] [address] Xr [place] [address] Referral ID Status Reason Start Date Expiration Date V isits Requested Visits Authorized [id number] Closed Auto-Generate d Referral 05/08/2024 06/07/2025 1 1 [facility] Procedure Only (Routine) - Closed Specialty Diagnoses / Procedures Referred By Millie t Referred To Contact XR IMAGING Diagnoses Left shoulder pain, unspecified chronicity Procedures XR SHOULDER ORTHO 4V AP/TRUE AP/LAT/OUTLET LEFT RADEX SHOULDER COMPLETE MINIMUM 2 VIEWS Boo Buchanan PA-C [address] [facility] [place] [address] [place] [address] Referral ID Status Reason Start Date Expiration Date V isits Requested Visits Authorized [id number] Closed Auto-Generate d Referral 05/08/2024 06/07/2025 1 1 [facility] Summary Purpose Family History Relationship Condition Age at Onset Recorded Date/T sarah father Unknown mother Unknown Advance Directives Advance Directive Response Recorded Date/ Time Advance [...] Referred By Millie t Referred To Contact CT IMAGING Diagnoses 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) Procedures CT SHOULDER WO IVCON LEFT CT UPPER EXTREMITY W/O CONTRAST MATERIAL Boo Buchanan PA-C [address] [place] [address] [place] [address] Referral ID Status Reason Start Date Expiration Date Visits Requested Visits Authorized [id number] New Request Auto-Generat ed Referral 05/22/2024 06/21/2025 1 1 Specialty Diagnoses / Procedures Referred By Millie t Referred To Contact XR IMAGING Diagnoses Left shoulder pain, unspecified chronicity Procedures XR SHOULDER ORTHO 4V AP/TRUE AP/LAT/OUTLET LEFT RADEX SHOULDER COMPLETE MINIMUM 2 VIEWS Boo Buchanan PA-C [address] [place] [address] [place] [address] Referral ID Status Reason Start Date Expiration Date V isits Requested Visits Authorized [id number] Closed Auto-Generate d Referral 05/08/2024 06/07/2025 1 1 Additional Source Comments INFORMATION SOURCE (unrecogn ized section and content) DATE CREATED AUTHOR 10/23/2021 [facility] DATE CREATED AUTHOR AUTHOR'S ORGANIZ ATION 01/22/2022 [facility] DATE CREATED AUTHOR AUTHOR'S ORGANIZ ATION 02/18/2023 [facility] DATE CREATED AUTHOR AUTHOR'S ORGANIZ ATION 03/11/2024 [facility] DATE CREATED AUTHOR AUTHOR'S ORGANIZ ATION 04/30/2024 [facility] DATE CREATED AUTHOR AUTHOR'S ORGANIZ ATION 05/04/2024 [facility] DATE CREATED AUTHOR AUTHOR'S ORGANIZ ATION 05/24/2024 [facility] DATE CREATED AUTHOR AUTHOR'S ORGANIZ ATION 06/03/2024 [facility] EPIC DATE CREATED AUTHOR AUTHOR'S ORGANIZ ATION 06/21/2024 [facility] REASON FOR VISIT (unrecogniz ed section [...] Pedro Pablo Cruz PA [address] [place] [address] González Alvarado MD [address] [place] [address] Referral ID Status Reason Start Date Expiration Date V isits Requested Visits Authorized [id number] Authorized 05/08/2024 09/11/2024 99 99 Reason Comments Med Refill Care Teams (unrecognized sec tion and content) [...] October 11, 2023 End: October 11, 2023 [employer] Relationship Specialty Start Date End Date Shaikh [...] May 02, 2024 End: May 02, 2024 [employer] Relationship Specialty Start Date End Date Luisana Johnson MD [address] [place] [id number] PCP - General 01/05/06 Pedro Pablo Cruz MD [address] [place], [place] [id number] Referring Infectious Diseases 05/07/24 [employer] Relationship Specialty Start Date End Date Luisana Johnson MD [address] [place] [address] PCP - General 01/05/06 Pedro Pablo Cruz MD [address] [place], [place] [id number] Referring Infectious Diseases 05/07/24 [employer] Relationship Specialty Start Date End Date Luisana Johnson MD [address] [place], [facility] PCP - General 01/05/06 Pedro Pablo Cruz MD [address] [place], [place] [id number] Referring Infectious Diseases 05/07/24 [employer] Relationship Specialty Start Date End Date Wesley Long MD [address] [place] [address] PCP - General Family Medicine 05/17/24 Monster Calvillo NP [address] [place] [address] Nurse Practitioner Family Medicine 05/17/24 Goals (unrecognized section and content) Goals may be documented in a n alternate section Source Comments (unrecognize d section and content) In the event this informatio n is protected by the Federal Confidentiality of Alcohol and Drug Abuse Patient Records regulations: The Federal rules restrict any use of the information to criminally investigate or prosecute any alcohol or drug abuse patient.[facility] the event this information is protected by the Federal Confidentiality of Alcohol and Drug Abuse Patient Records regulations: The Federal rules restrict any use of the information to criminally investigate or prosecute any alcohol or drug abuse patient.[facility] the event this information is protected by the Federal Confidentiality of Alcohol and Drug Abuse Patient Records regulations: The Federal rules restrict any use of the information to criminally investigate or prosecute any alcohol or drug abuse patient.[facility] FOR RECORDS PERTAINING TO PATIENTS WHO [...] BE BASED ON THE PRIMARY CLINICAL RECORDS. [facility]. provides no warranty or guarantee of the accuracy or completeness of information in this document.
--- NOTE | 2024-06-26 15:16 | CT_ITS ---
The [address] [address] Patient Name: MAXIMUS HERRMANN MRN: [facility]:[id number] date: 1945 Sex: F Assigned Patient Location: CT Current Patient Location: Accession/Order Number: [id number] Exam Date: 06/26/2024 14:58 Report Date: 06/28/2024 08:42 At the request of: NON-STAFF PHYSICIAN Procedure: CT Shoulder LT w/ Con Exam Type: CT LEFT SHOULDER Exam Date and Time: 06/26/2024 2:58 PM EDT Indication: 78 years old Female with pain Comparison: Radiographs 02/21/2024 TECHNIQUE: Axial CT images of the left shoulder were obtained with intravenous contrast. Coronal and sagittal reformatted images were obtained. 3-D surface rendering was performed. Dose reduction techniques were achieved by using automated exposure control and/or adjustment of mA and/or kV according to patient size and/or use of iterative reconstruction technique. 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 The AC joint is congruent. 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 The hardware appears intact and appropriately positioned. Small joint effusion is present. No bony erosive or surgical changes identified to suggest infection. Multiple enlarged left axillary lymph nodes are present, the largest measures approximately 1.5 cm in short axis. This is of uncertain etiology. Limited evaluation of the left hemithorax is without acute or suspicious abnormality. CT/CT Shoulder LT w/ Con IMPRESSION: 1. Postsurgical changes without acute osseous abnormality. 2. Left axillary lymphadenopathy of uncertain etiology. Consider dedicated ultrasound and possible correlation with mammography as well. Electronically authenticated by: ROB JURADO Date: 06/28/2024 08:42
--- NOTE | 2024-06-26 15:16 | CT_ITS ---
[address] [address] Patient Name: MAXIMUS HERRMANN MRN: [facility]:[id number] date: 1945 Sex: F Assigned Patient Location: CT Current Patient Location: Accession/Order Number: [id number] Exam Date: 06/26/2024 14:58 Report Date: 06/28/2024 08:43 At the request of: NON-STAFF PHYSICIAN Procedure: CT cervical spine w con PROCEDURE: CT cervical spine w con COMPARISON: None. HISTORY: Cervical Disc Disorder At C5-C6 TECHNIQUE: Dose reduction techniques were achieved by using automated exposure control and/or adjustment of mA and/or kV according to patient size and/or use of iterative reconstruction technique. FINDINGS: Limited exam due to patient body habitus and poor doxnfk-[id number]-[id number] ratio BONES: Reversal of normal cervical lordosis. No acute fracture or spondylolisthesis. Moderate to severe diffuse degenerative spondylosis and facet osteoarthropathy PARASPINAL AREA: Normal with no visible mass. CERVICAL DISC LEVELS: C2-C3: Moderate disc space narrowing. No disc bulge or herniation. No central or foraminal stenosis C3-C4: Disc collapse. Mild spondylosis. No central or foraminal stenosis C4-C5: Disc collapse with endplate sclerosis. Moderate spondylosis. No central or foraminal stenosis C5-C6: Disc collapse with endplate sclerosis. Moderate spondylosis. No central or foraminal stenosis C6-C7: Disc collapse with endplate sclerosis. No central or foraminal stenosis C7-T 1: Disc collapse with endplate sclerosis. Mild disc/osteophyte complex. No central or foraminal stenosis CT/CT cervical spine w con IMPRESSION: Moderate to severe diffuse degenerative changes with no definite central or foraminal stenosis Electronically authenticated by: HONG ALSTON Date: 06/28/2024 08:43
== END 2024-06-26 13:33 | disposition home or self-care (01) ==
LOC: CT 13:32
PROVIDERS: PCP Internal Medicine
DX: M50.122 Cervical disc disorder at C5-C6 level with radiculopathy (principal); M25.122 Fistula, left elbow; M50.30 Other cervical disc degeneration, unspecified cervical region; R59.0 Localized enlarged lymph nodes; Z98.1 Arthrodesis status
CPT/HCPCS: 72126; 73201; Q9967

== ENCOUNTER 2024-07-24 11:38 | Outpatient (OUT) | payer MEDICARE, SELFPAY ==
--- OUTSIDE RECORDS SUMMARY | 2024-07-24 11:58 | XMS_ITS | CCD ---
Author Organization [facility] CliniSypr Care Team Providers Care Trade Economist Name Role Phone ZANE MCGUIRE Admitting Unavailable [...] ., DR LUISANA Jarquin Primary Care Unavailable ZIEBDR PAULA REBOLLEDO Consulting [...] Admitting Unavailable RIVER ., KAYLEY Attending Unavailable [place], DR HONG Morgan Consulting Unavailable JOHNSON ., [...] DR LUISANA Jarquin Primary Care Unavailable [facility]ILOSHAIK [facility] Attending Unavailable SHAIK [facility] Admitting Unavailable SAMSA ., LUIZ Admitting Unavailable SAMSA ., LUIZ Attending Unavailable SAMSA ., LUIZ Consulting Unavailable JOHNSON ., DR LUISANA Jarquin Primary Care Unavailable THANG Clement Attending Provider [phone] MD Cira [facility] Primary Care Provider [phone] THANG Clement Attending Provider Cira CUBA [facility] Provider [phone] Ortega ALEXANDER Attending Unavailable [facility] Referring Unavailable Ortega ALEXANDER Attending Unavailable MD Cira [facility] Provider [phone] DO James Jones Attending Provider Katherine CUBA, Andrius Sainz Attending Unavailable Gityroneitis , Andrius Vrenee Attending Unavailable Giedraitis , Andrius Vrenee Attending Unavailable Giedraitis , Andrius Vrenee Attending Unavailable YOLY Cruz Attending Provider [facility] Unavailable Kayley Reeder Admitting Unavailable Kayley Reeder Attending Unavailable [facility] Unavailable James Jones Admitting Unavailable James Jones Attending Unavailable [facility] Care Unavailable James Jones Admitting Unavailable James Jones Attending Unavailable [facility] Care Unavailable Pedro Pablo Cruz Admitting Unavailable Pedro Pablo Cruz Attending Unavailable [facility] Unavailable Claire Clement Admitting Unavailable Claire Clement Attending Unavailable Shaikh Denis Primary Care Unavailable Urbano, Claire E Admitting Unavailable Urbano, Claire Britton Attending Unavailable Luisana Johnson MD Primary Care Provider Pedro Pablo Cruz MD Unavailable LUISANA JOHNSON Primary Care Unavailable BOO BUCHANAN Attending Unavailable PEDRO PABLO CRUZ Referring Unavailable LUISANA JOHNSON Primary Care Unavailable BOO BUCHANAN Referring Unavailable Wesley Long MD Primary Care Provider Rajinder SCANNING CLERK, Monster Unavailable YANCY HENNESSY Referring Unavailable NICANOR CANNON Attending Unavailable YANCY HENNESSY Referring Unavailable KOLTON ALTMAN Attending Unavailable CIRA, Attending Unavailable FASILVANA, Attending Unavailable FASILVANA, Attending Unavailable CIRA, Attending Unavailable CIRA, Attending Unavailable CIRA, Attending Unavailable CIRA, Attending Unavailable PEDRO PABLO CRUZ Attending Unavailable PEDRO PABLO CRUZ Referring Unavailable JR. FRANK GEORGE C Attending Unavaila MONSTER Johnson Attending UnavailRENNY Narayan Attending Unavailable Allergies Allergy Classification Reported Allergen(s) Allergy Type Date of Onset Reaction(s) Facility NSAIDs (1 source) meloxicam; Translations: [Mobic] Drug Allergy [facility] Repository Unclassified (1 source) No Known Medication Allergies; Translations: [No Known Medication Allergies] Propensity to adverse reactions (disorder) [facility] Repository (1 source) novacaine; Translations: [novacaine] Propensity to adverse reactions (disorder) 2 [facility] Repository (7 sources) NSAIDs Propensity to adverse reactions 4 HEART [facility] (7 sources) Adhesive agent; Translations: [adhesive] Allergy to substance 4 [facility] (4 sources) NSAIDS (Non-Steroidal Anti-Inflamma; Translations: [NSAIDS (Non-Steroidal Anti-Inflamma] Allergy to substance 4 HEART ISSUES [facility] (5 sources) Digoxin Drug Allergy 4 [facility] Work Phone: (5 sources) Wound Dressing Adhesive Drug Allergy 4 [facility] Medications Current Medications Medication Drug Class(es) Dates Sig (Normalized) Sig (Original) acetaminophen 325 mg / HYDROcodone bitartrate 5 mg oral tablet (7 sources) Opioid Agonist Start: 06-21-2024 take 1 tablet by mouth in the morning, then take 1 tablet by mouth in the evening, then take 1 tablet by mouth at bedtime HYDROcodone-aceta minophen ([place]) 5-325 MG tablet Take 1 tablet by mouth in the morning and 1 tablet in the evening and 1 tablet before bedtime. 06/21/2024 Active Start: 03-01-2024 take 1 tablet by dirk th twice daily acetaminophen-hydrocodone 325 mg-5 mg or al tablet 1 tab(s), Oral, BID, Refill(s) 0 Start Date: 03/01/24 Status: Ordered take 1 tablet by dirk th every eight hours as needed HYDROcodone-acetaminophen (NORCO) 5-325 mg per tablet Take 1 tablet by mouth three times a day as needed for pain. Active amoxicillin 875 mg / clavulanate 125 mg oral tablet (2 sources) Penicillin-class Antibacterial Start: 07-05-2024 End: 07-15-2024 take 1 tablet by mouth in the morning amoxicillin-clavulanate (Augmentin) 875-125 MG tablet Indications: Acute non-recurrent sinusitis, unspecified location Take 1 tablet (875 mg) by mouth in the morning and 1 tablet (875 mg) before bedtime. Do all this for 10 days. 20 tablet 07/05/2024 07/15/2024 Active apixaban 5 mg oral tablet (13 sources) Factor Xa Inhibitor Start: 05-05-2023 End: 06-11-2024 take 1 tablet by mouth in the morning apixaban (Eliquis) 5 MG tablet Indications: Persistent atrial fibrillation (HCC) (CMS/HCC) Take 1 tablet (5 mg) by mouth in the morning and 1 tablet (5 mg) before bedtime. 180 tablet 1 12/14/2023 Active ascorbic acid 100 mg oral tablet (6 sources) Vitamin C take 1 tablet by mouth in the morning Ascorbic Acid (vitamin C) 100 MG tablet Take 100 mg by mouth in the morning. Active baclofen 10 mg oral tablet (7 sources) gamma-Aminobutyric Acid-ergic Agonist Start: 06-21-2024 take 1 tablet by mouth in the morning, then take 1 tablet by mouth in the evening, then take 1 tablet by mouth at bedtime baclofen (Lioresal) 10 MG tablet Take 10 mg by mouth in the morning and 10 mg in the evening and 10 mg before bedtime. 06/21/2024 Active Start: 03-01-2024 take 1 tablet by dirk th three times daily baclofen 10 mg Tab [...] Status: Ordered cholecalciferol 0.125 mg oral tablet (11 sources) Vitamin D Start: 2023 take 1 tablet by mouth once daily [...] sulfate 325 mg delayed release oral tablet (7 sources) Start: 03-21-2024 End: 06-19-2024 take 1 tablet by mouth at mealtime ferrous sulfate 325 (65 Fe) MG EC tablet Indications: Iron deficiency anemia due to chronic blood loss Take 1 tablet (325 mg) by mouth in the morning. Take with meals. Do not crush, chew, or split.. 90 tablet 03/21/2024 06/19/2024 Active take 1 tablet by mouth every oth er day ferrous sulfate 325 (65 Fe) MG tablet Take 325 mg by mouth every other day Active flecainide acetate 100 mg oral tablet (15 sources) Antiarrhythmic Start: 03-08-2024 take 1 tablet [...] 0 Active furosemide 40 mg oral tablet (9 sources) Loop Diuretic Start: 03-21-2024 End: 06-18-2024 take 1 tablet by mouth once daily furosemide (Lasix) 40 MG tablet Indications: Acute on chronic diastolic (congestive) heart failure (CMS/HCC) TAKE 1 TABLET BY MOUTH EVERY DAY 90 tablet 06/18/2024 Active Start: 03-01-2024 take 1 tablet by dirk [...] hrs Multiple Vitamins-Minerals (CENTRUM SILVER 50+WOMEN PO) (6 sources) take 1 tablet by mouth in the morning Multiple Vitamins-Minerals (CENTRUM SILVER 50+WOMEN PO) Take 1 tablet by mouth in the morning. Active take 1 tablet by mouth in the mo rning Multiple Vitamins-Minerals (CENTRUM SILVER 50+WOMEN PO) Take 1 tablet by mouth in the morning. 0 Active omeprazole 40 mg delayed release oral capsule (15 sources) Proton Pump Inhibitor Start: 07-09-2024 take 1 capsule by mouth once daily omeprazole (PriLOSEC) [address] capsule Indications: Peptic ulcer, site unspecified, unspecified as acute or chronic, without hemorrhage or perforation , Peptic ulcer Take 1 capsule (40 mg) by mouth Daily 90 capsule 1 07/09/2024 Active Start: 02-15-2023 take 1 capsule by [facility] once daily omeprazole (PriLOSEC) [address] capsule Indications: Peptic ulcer, site unspecified, unspecified as acute or chronic, without hemorrhage or perforation , Peptic ulcer TAKE 1 CAPSULE BY MOUTH EVERY DAY 90 capsule 1 01/11/2024 Active take 1 capsule by [facility] every twenty-four hours Omeprazole 40 MG 1 capsule Orally Once a day Active potassium chloride 10 meq extended release oral capsule (2 sources) take 1 capsule by mouth every twenty-four hours Potassium Chloride 10 MEQ 1 capsule with food Orally Once a day Active spironolactone 25 mg oral tablet (14 sources) Aldosterone Antagonist Start: take 1 tablet by mouth once daily spironolactone (Aldactone) 25 MG tablet Indications: Essential hypertension (CMS/HCC) TAKE 1 TABLET BY MOUTH EVERY DAY 90 tablet 1 07/16/2024 Active Start: 11-16-2023 End: 07-16-2024 take 1 tablet by mouth once daily spironolactone (Aldactone) 25 MG tablet Indications: Essential hypertension (CMS/HCC) Take 1 tablet (25 mg) by mouth Daily 90 tablet 1 12/13/2023 07/16/2024 Discontinued 24 hr verapamil hydrochloride 180 mg extended release oral capsule (15 sources) Calcium Channel Ozzy Start: 03-01-2024 take [...] morning. 02/14/2023 Active take 1 capsule by mo uth [...] Daily, # 90 tab(s), Refills(s) 0, Pharmacy: [facility]/pharmacy #[id number], 141, cm, 01/11/23 10:30:00 EDT, Height/Length Dosing, 107.2, kg, 01/11/23 10:30:00 EDT, Weight Dosing Start Date: 02/15/23 Status: Ordered warfarin sodium 3 mg oral tablet (2 sources) Vitamin K Antagonist take 1 tablet by mouth every twenty-four hours Warfarin Sodium 3 MG 1 tablet Orally Once a day Active Problems Active Problems Problem Classification Problem Date Documented Da te Episodic/Chronic Cardiac dysrhythmias (20 sources) Unspecified atrial fibrillation; Translations: [Paroxysmal atrial fibrillation] Onset: 2 09-06-2023 Chronic Chronic obstructive pulmonary disease and bronchiectasis (18 sources) Chronic obstructive pulmonary disease, unspecified; Translations: [Centrilobular emphysema] Onset: 2 Chronic Complication of device; implant or graft (1 source) 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; Translations: [Pain due to internal orthopedic prosthetic devices, implants and grafts, initial encounter] 05-22-2024 Episodic Conduction disorders (11 sources) Presence of cardiac pacemaker; Translations: [Sinus node dysfunction] Onset: 1 03-01-2024 Chronic Congestive heart failure; nonhypertensive (8 sources) Chronic diastolic (congestive) heart failure; Translations: [Congestive heart failure] Onset: 3 03-01-2024 Chronic Coronary atherosclerosis and other heart disease (10 sources) 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; Translations: [Coronary atherosclerosis] Onset: 2 09-06-2023 Chronic Deficiency and other anemia (5 sources) Iron deficiency anemia due to blood loss; Translations: [Iron deficiency anemia secondary to blood loss (chronic)] Onset: 4 03-12-2024 Chronic Deficiency and other anemia (2 sources) Iron deficiency anemia; Translations: [Iron deficiency anemia, unspecified] Onset: 4 Episodic Deficiency and other anemia (5 sources) 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; Translations: [Other specified anemias] Onset: 4 07-05-2024 Episodic Disorders of lipid metabolism (1 source) Hyperlipidemia, unspecified; Translations: [HYPERLIPIDEMIA UNSPECIFIED] Onset: 3 Chronic Diverticulosis and diverticulitis (5 sources) Diverticulosis of sigmoid colon; Translations: [Diverticulosis of large intestine without perforation or abscess without bleeding] Onset: 4 07-05-2024 Chronic Esophageal disorders (2 sources) Gastroesophageal reflux disease without esophagitis; Translations: [Gastro-esophageal reflux disease without esophagitis] Onset: 4 Chronic Essential hypertension (10 sources) Essential hypertension; Translations: [Essential (primary) hypertension] Onset: 2 09-06-2023 Chronic Gastroduodenal ulcer (except hemorrhage) (13 sources) Peptic ulcer; Translations: [Peptic ulcer, site [...] HEART DISEASE W/HEART FAIL] Onset: 3 Chronic Lymphadenitis (5 sources) Axillary lymphadenopathy; Translations: [Localized enlarged lymph nodes] Onset: 4 07-05-2024 Episodic Mood disorders (1 source) Depressive disorder 01-11-2023 Chronic Comment on above: Per pt she had a armando ght of depresseion after her but she denies any chronic depression. Nonspecific chest pain (1 source) Chest pain, unspecified; Translations: [CHEST PAIN UNSPECIFIED] Onset: 3 Episodic Nutritional deficiencies (6 sources) Vitamin D deficiency; Translations: [Vitamin D deficiency, unspecified] Onset: 3 01-10-2023 Chronic Osteoarthritis (20 sources) Arthritis of acromioclavicular joint; Translations: [Primary osteoarthritis, right shoulder] Onset: 3 09-06-2023 Chronic Other aftercare (4 sources) Encounter for therapeutic drug level monitoring; Translations: [ENC THERAPEUTC DRUG LEVL MONITORING] Onset: 3 Episodic Other aftercare (1 source) half-way (current) use of anticoagulants; Translations: [CUSTODIAL CURRNT USE 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] Onset: 3 Episodic Other aftercare (1 source) Other retirement (current) drug therapy; Translations: [OTH DIRECTOR OF PARTNERSHIPS CURRENT DRUG THERAPY] Onset: 3 Episodic Other and ill-defined heart disease (5 sources) Diastolic dysfunction; Translations: [Other ill-defined heart diseases] Onset: 4 02-27-2024 Chronic Other connective tissue disease (2 sources) Radicular pain; Translations: [Neuralgia and neuritis, unspecified] 07-05-2024 Episodic Other gastrointestinal disorders (5 sources) Irritable bowel syndrome; Translations: [Irritable bowel syndrome without diarrhea] Onset: 4 07-05-2024 Chronic Other gastrointestinal disorders (1 source) Abnormal [...] NEC] Onset: 3 Chronic Other liver diseases (7 sources) Steatosis of liver; Translations: [Fatty (change [...] Chronic Other nutritional; endocrine; and metabolic disorders (7 sources) Hypocalcemia; Translations: [Hypocalcemia] Onset: 3 09-06-2023 Chronic Other nutritional; endocrine; and metabolic disorders (8 sources) Obesity; Translations: [Obesity, unspecified] Onset: 3 09-06-2023 Chronic Other nutritional; endocrine; and metabolic disorders (1 source) Body mass index 40+ - severely obese 03-02-2024 Chronic Other nutritional; endocrine; and metabolic disorders (1 source) Obese class III 03-02-2024 Chronic Other screening for suspected conditions (not mental disorders or infectious disease) (7 sources) Ultrasound scan abnormal; Translations: [Abnormal findings on diagnostic imaging of other specified body structures] Onset: 4 07-05-2024 Chronic Other screening for suspected conditions (not mental disorders or infectious disease) (10 sources) Abnormal coagulation profile; Translations: [Encounter for screening mammogram for malignant neoplasm of breast] Onset: 2 Episodic Other upper respiratory infections (3 sources) Acute sinusitis, unspecified; Translations: [Acute sinusitis] Onset: 3 07-05-2024 Episodic Residual codes; unclassified (5 sources) Obstructive sleep apnea (adult) (pediatric); Translations: [OBSTRUCTIVE SLEEP APNEA] Onset: 2 Chronic Residual codes; unclassified (8 sources) Edema; Translations: [Edema, unspecified] Onset: 2 09-06-2023 Episodic Residual codes; unclassified (2 sources) H/O: Disorder; Translations: [Personal history of other specified conditions] Onset: 4 Episodic Screening and history of mental health and substance abuse codes (1 source) Personal history of nicotine dependence; Translations: [PERSONAL HISTORY OF NICOTINE DEPEND] Onset: 3 Episodic Spondylosis; intervertebral disc disorders; other back problems (20 sources) Cervical spondylosis; Translations: [Spondylosis without myelopathy [...] cardiac pacemaker pulse generator [battery]] Onset: 3 Unclassified (2 sources) PACEMAKER Onset: 4 Viral infection (1 source) Herpes zoster 01-10-2023 Episodic Comment on above: 05/2019 Past or Other Problems Problem Classification Problem Date Documented Da te Episodic/Chronic Abdominal hernia (7 sources) Diaphragmatic hernia; Translations: [Diaphragmatic hernia without obstruction or gangrene] Onset: 10-17-2023 Episodic Fracture of lower limb (9 sources) Closed fracture of fifth metatarsal bone; Translations: [Displaced fracture of fifth metatarsal bone, left foot, initial encounter for closed fracture] Onset: 11-07-2023 11-07-2023 Episodic Mood disorders (6 sources) Mood disorders Onset: 09-06-2023 09-06-2023 Other circulatory disease (6 sources) Vascular insufficiency; Translations: [Venous insufficiency (chronic) (peripheral)] Onset: 03-01-2023 01-10-2023 Episodic Other connective tissue disease (2 sources) Pain of left hand; Translations: [Pain in left hand] Episodic Other connective tissue disease (2 sources) Pain in left foot; Translations: [Pain in left foot] Episodic Other connective tissue disease (7 sources) Impingement syndrome of right shoulder region; Translations: [Impingement syndrome of right shoulder] Onset: 11-07-2023 11-07-2023 Episodic Other connective tissue disease (5 sources) Disorder of bursa of shoulder region; Translations: [...] Onset: 02-25-2022 Episodic Other non-traumatic joint disorders (9 sources) Shoulder pain; Translations: [Pain in left shoulder] Onset: 10-17-2023 10-17-2023 Episodic Other non-traumatic joint disorders (2 sources) Knee pain; Translations: [Pain in left knee] Episodic Other non-traumatic joint disorders (6 sources) Pain in left knee; Translations: [Pain in joint, lower leg] Onset: 09-06-2023 09-06-2023 Episodic Spondylosis; intervertebral disc disorders; other back problems (20 sources) Cervical radiculopathy; Translations: [Radiculopathy, cervical region] Onset: 03-01-2023 09-06-2023 Episodic Superficial injury; contusion (7 sources) Contusion of shoulder region; Translations: [Contusion of left shoulder, initial encounter] Onset: 11-07-2023 11-07-2023 Episodic Unclassified (1 source) LOW BACK PAIN, UNSPECIFIED; Translations: [LOW BACK PAIN, UNSPECIFIED] Onset: 01-28-2023 Unclassified (1 source) COUGH, UNSPECIFIED; Translations: [COUGH, UNSPECIFIED] Onset: 03-30-2022 Results Test Name Value Interpretation Reference Range Facility Office Visiton 07-18-2024 Follow-up visit [id number] Breann Starks Jonah 1945 F Date Provider Department [place] 07/18/2024 [id number] ALTMAN AMISH Ramírez [facility] Family History Adopted: Yes Family history unknown: Yes Family Status - Relation Status Age at Mother Father Level of Service:89614 [facility] OFFICE/OUTPATIENT ESTABLISHED MOD MDM 30 MIN Reason for Visit and Comments: Atrial Fibrillation [80] PACEMAKER [Other] Coronary Artery Disease [187] Hypertension [495245] Sinus node dysfunction [Other] - HAS [place]OST[place] PACER Obesity [[id number]] Edema [[id number]] Normal [facility] CNOVon 05-22-2024 CNOV Office Visit (LOORRM) BREANN STARKS ([id number]) 1945 F Date Time Provider Department 05/22/24 1:00 PM BOO BUCHANAN LOORRNathan During your visit today, we recorded the [...] date: COPD (chronic obstructive pulmonary disease) ([facility]) SOCIAL HISTORY: Tobacco Use: Never EXAMINATION: GENERAL: [...] due to left shoulder joint prosthesis ([facility]) T84.84XA CT SHOULDER WO IVCON LEFT Z96.612 [...] I ordered (more content not included)... Normal [facility] XR SHLDR 4V AP/HECTOR/LAT/OUTLE T LTon [...] other significant abnormality. IMPRESSION: EXPECTED POSTOPERATIVE APPEARANCE [employer] Machine Operator: STEVE Transcribe Date/Time: May 22 2024 2:42P Dictated by : VILMA ABREU MD This examination was interpreted and the report reviewed and electronically signed by: VILMA ABREU MD on May 22 2024 2:42PM EST [id number] Normal [facility] XR Shoulder - left 4 Viewson 05-22-2024 IMPRESSION: EXPECTED POSTOPERATIVE APPEARANCE [employer] Machine Operator: PSCB Transcribe Date/Time: May 22 2024 [...] other significant abnormality. DIVISION OF RADIOLOGY Provider, [facility] [place] - 05/22/2024 * * *Final Report* * [...] significant abnormality. IMPRESSION IMPRESSION: EXPECTED POSTOPERATIVE APPEARANCE [employer] Machine Operator: STEVE Transcribe Date/Time: May 22 2024 2:42P Dictated by : VILMA ABREU MD This examination was interpreted and the report reviewed and electronically signed by: VILMA ABREU MD on May 22 2024 2:42PM EST [facility] Radiology Study observation (narrative) [facility] XR Shoulder - left 4 ViewsOr dered By: Cc Provider on 05-22-2024 [facility] NM bone 3 phaseon 05-02-2024 NM bone 3 phase [facility] [place] [address] Nuclear Medicine Report Signed Patient: Breann Starks MR#: [id number] 171 : 1945 Acct:[id number] Age/Sex: 78 / F ADM Date: 05/02/24 Loc: [place] Room: Type: [facility] Attending Dr: Pedro Pablo Cruz PA-C [...] Etienne Rhodes M.D.05/02/2024 2:44 PM Dictation Location: [place] [address] Transcribed By: [facility] 05/02/24 1444 Dictated By: Etienne Rhodes DO 05/02/24 1440 Signed By: 05/02/24 1444 Normal [facility] Lab Reportson 03-07-2024 Lab Reports [id number] #1.00TIFF Normal [facility] 36on 03-06-2024 36 Echo from 03/05/2024 [...] to her pharmacy. BMP order faxed to [facility]. Breann verbalized understanding. Normal [facility] Consent for Procedure/Surger yon 03-05-2024 Consent for Procedure/Surgery [id number] #1.00TIFF Normal [facility] Ambulatory Visit Summaryon 0 03-02-2024 Ambulatory Visit Summary BREANN STARKS :1945 Visit Date:03/02/2024 Ambulatory Visit Instructions Your Care Team Attending Physician - CATHERINE CUBA, Ortega Bishop Primary Care Physician - Cate JUÁREZ, Barbara Lemus Referring Physician - CIRA CUBA, [facility] This Is Your Medications List Contact [...] you for choosing us for your care. [facility] ED Note-Physicianon 03-02-20 24 ED Note-Physician [id number]# 1.00TIFF Normal [facility] Insurance Correspondenceon 0 03-02-2024 Insurance Correspondence [id number]#1.00TIFF Normal [facility] Lab Reportson 03-02-2024 Lab Reports [id number] #1.00TIFF Normal [facility] 36on 01-25-2024 36 Patient called stating ever since her device was adjusted last month she's had this weird feeling in her throat. I called Sony Asif from [employer] and he told me this feeling she's having should not be from her device. Patient informed. I suggested she see PCP for this. She verbalized understanding. Normal [facility] Office Visiton 01-17-2024 Follow-up visit [id number] Breann Starks 1945 F Date Provider Department Center 01/17/2024 NICANOR REGAN Family History Adopted: Yes Family history unknown: Yes Family Status - Relation Status Age at Mother Father Level of Service:24997 [facility] OFFICE/OUTPATIENT ESTABLISHED MOD MDM 30 MIN Reason for Visit and Comments: Atrial Fibrillation [80] Normal [facility] XR lumbar spine 6V w bending on 11-16-2023 XR lumbar spine 6V w bending [facility] [place] [address] XRay Report Signed Patient: Breann Starks MR#: [id number] 171 : 1945 Acct:[id number] Age/Sex: 77 / F ADM Date: 11/16/23 Loc: XD Room: Type: [facility] Attending Dr: Kayley DESIR Copies to: [...] Benton Jr., DMeenaOMeena11/16/2023 4:37 PM Dictation Location: [place] [address] Transcribed By: [facility] 11/16/23 1637 Dictated By: Francisco J Benton Jr, DO 11/16/23 1636 Signed By: 11/16/23 1637 Normal [facility] [facility] MR lumbar spine wo conon MR lumbar spine wo con [facility] [place] [address] XRay Report Signed Patient: Breann Starks MR#: [id number] : 1945 Acct:[id number] Age/Sex: 77 / F ADM Date: 10/11/23 Loc: Room: Type: [facility] Attending Dr: Claire DESIR Copies to: THANG Porter Ordering Provider: THANG Porter Date of Service: 10/11/23 MR/MR lumbar spine wo con: LUMBAR RADICULPATHY ([id number]) XR/XR pre/post mri xray: LUMBAR RADICULPATHY CLINICAL [...] Eleanor Reece M.D.10/11/2023 4:10 PM Dictation Location: [place] [address] Transcribed By: [facility] 10/11/23 1610 Dictated By: Eleanor Reece MD 10/11/23 1133 Signed By: 10/11/23 1610 Normal [facility] XR LSPINE W_OBLS AND FLEX_EX Ton 01-31-2023 [...] by: PAULA BROWN Date: 2023-01-31 11:34 Normal [facility] LIPID PROFILEon 12-16-2022 CHOL-HDL RATIO NORM SEE BELOW Normal [facility] Comment on above: Result Comment: 3.3 - 4.4 LOW RISK 4.4 - 7.1 AVERAGE RISK 7.1 - 11.0 MODERATE RISK >11.0 HIGH RISK Performed By: #### L IPID ####[facility] Gwqkwfpryx[address] [place], [place] [address]Wx. Erasmo Smith Cholesterol [Mass/Vol] 105 mg/dL Normal <=200 [facility] Comment on above: Performed By: #### L IPID ####[facility] Zlaikzvjik8356 [place], [place] [address]Yq. Erasmo Smith Cholesterol in HDL [Mass/Vol] 48 mg/dL Normal 40-60 [facility] Comment on above: Performed By: #### L IPID ####[facility] Fqupduiolz4070 [place], [place] [address]Lt. Heavenean Luis Cholesterol in LDL [Mass/Vol] 48.2 mg/dL Normal [facility] Comment on above: Performed By: #### L IPID ####[facility] Lyaoklrktu2752 [place], [place] [address]Aw. Erasmo Smith Cholesterol.total/Chol esterol in HDL [Mass ratio] 2.2 {ratio} Normal [facility] Comment on above: Performed By: #### L IPID ####[facility] Vwhyxmpanv0727 [place], [place] [address]Vj. Heavenean Smith HDL NORMAL > or = 60 mg/dl - LOW CARDIOVASCULAR RISK <40 mg/dl - HIGH CARDIOVASCULAR RISK Normal [facility] Comment on above: Performed By: #### L IPID ####[facility] Drgekjfbza4625 [place], [place] [address]Gw. Erasmo Smith LDL CALC NORMAL SEE BELOW Normal [facility] Comment on above: Result Comment: <100 mg/dl OPTIMAL 100 - 129 mg/dl NEAR OR ABOVE OPTIMAL 130 - 159 mg/dl BORDERLINE HIGH 160 - 189 mg/dl HIGH >190 mg/dl VERY HIGH Performed By: #### L IPID ####[facility] [address]xw[address]sktsx[address] [place] [address]Dr. Erasmo Smith Triglyceride [Mass/Vol] 44 mg/dL Normal <=150 [facility] Comment on above: Performed By: #### L IPID ####[facility] Eszzczdwwk[address] [place] [address]Dr. Erasmo Smith VLDL CALC 8.8 mg/dL Normal [facility] Comment on above: Performed By: #### L IPID ####[facility] Auorfratuz[address] [place], [place] [address]Dr. Erasmo Smith CULTURE BLOODon 12-04-2022 Microscopic examination [...] F Trimethoprim/Sulfame thoxazole <=20 S F Normal [facility] Comment on above: Performed By: #### B LDCX1 ####[facility] Rjnxlyvppg[address] [place], [place] [address]Dr. Erasmo Smith BNPon 12-03-2022 Natriuretic peptide B (Bld) [Mass/Vol] 413.0 pg/mL Normal <=1,800.0 [facility] Comment on above: Performed By: #### B SCANNING CLERK #### [facility] [address] [place] [address] [address] Erasmo Smith CBC AUTO DIFFon 12-03-2022 BASO # 0.0 103/ul Normal 0.0-0.1 [facility] Comment on above: Performed By: #### C BC ####[facility] Qiusacuyum[address] [place], [place] [address]DrMeena Smith Basophils/100 WBC (Bld) 0.2 % Normal 0.2-2.0 [facility] Comment on above: Performed By: #### C BC ####[facility] Uedruiqagn[address] [place] [address]DrMeena Smith EO # 0.4 103/ul Normal 0.0-0.7 [facility] Comment on above: Performed By: #### C BC ####[facility] Zrilgkdkmp[address] [place], [place] [address]Dr. Erasmo Smith Eosinophils/100 WBC (Bld) 2.1 % Normal 0.9-7.0 [facility] Comment on above: Performed By: #### C BC ####[facility] Lgwsyxbwcs[address] [place], [place] [address]Dr. Erasmo Smith Erythrocyte distribution width (RBC) [Ratio] 17.2 % Critically high 11.0-15.0 [facility] Comment on above: Performed By: #### C BC ####[facility] Xluzxxbcth[address] [place], [place] [address]DrMeena Smith Hematocrit (Bld) [Volume fraction] 29.2 % Critically low 36.0-48.0 [facility] Comment on above: Performed By: #### C BC ####[facility] Kuhogmchzd[address] [place], [place] [address]DrMeena Smith Hemoglobin (Bld) [Mass/Vol] 9.5 g/dL Critically low 12.0-16.0 [facility] Comment on above: Performed By: #### C BC ####[facility] Byzypxsitx[address] [place], [place] [address]DrMeena Smith IG # 0.13 10e3/ul Critically high 0.00-0.03 [facility] Comment on above: Performed By: #### C BC ####[facility] Roagogaljo[address] [place], [place] [address]DrMeena Smith IG % 0.8 % Critically high 0.0-0.[address] [facility] Comment on above: Performed By: #### C BC ####[facility] Uapuvexuse[address] [place], [place] [address]Dr. Erasmo Smith LYMPH # 1.8 103/ul Normal 1.2-3.8 [facility] Comment on above: Performed By: #### C BC ####[facility] Urzncynwex[address] [place] [address]Dr. Erasmo Smith Lymphocytes/100 WBC (Bld) 10.3 % Critically low 20.5-60.0 [facility] Comment on above: Performed By: #### C BC ####[facility] Sycjvpumyy13[address] [place], [place] [address]DrMeena Smith MANUAL DIFF REQ NO Normal [facility] Comment on above: Performed By: #### C BC ####[facility] Bzhtoxgfxp[address] [place], [place] [address]DrMeena Smith MCH (RBC) [Entitic mass] 25.7 pg Critically low 26.7-34.0 [facility] Comment on above: Performed By: #### C BC ####[facility] Ijeodvljgw[address] [place], [place] [address]DrMeena Smith MCHC (RBC) [Mass/Vol] 32.5 g/dL Normal 29.9-35.2 [facility] Comment on above: Performed By: #### C BC ####[facility] Hgfronitqr[address] [place], [place] [address]DrMeena Smith MCV (RBC) [Entitic vol] 79.1 fL Critically low 81.0-99.0 [facility] Comment on above: Performed By: #### C BC ####[facility] [address]abk[address]gjw[address] [place], [place] [address]DrMeena Smith MONO # 1.5 103/ul Critically high 0.3-0.[address] [facility] Comment on above: Performed By: #### C BC ####[facility] Liiouzsmdo[address] [place], [place] [address]DrMeena Smith Monocytes/100 WBC (Bld) 8.7 % Normal 1.7-12.0 [facility] Comment on above: Performed By: #### C BC ####[facility] Zlcznlwcen[address] [place], [place] [address]DrMeena Smith NEUT # 13.4 103/ul Critically high 1.4-6.5 [facility] Comment on above: Performed By: #### C BC ####[facility] [address] [place] [address]DrMeena Colladoean Smith Neutrophils/100 WBC (Bld) 77.9 % Critically high 43.0-75.0 [facility] Comment on above: Performed By: #### C BC ####[facility] V[address] [place] [id number] Smith Platelet mean volume (Bld) [Entitic vol] 9.3 fL Critically low 9.5-13.5 [facility] Comment on above: Performed By: #### C BC ####[facility] [address] [place] [address]DrMeena Smith PLT 205 103/ul Normal 150-450 [facility] Comment on above: Performed By: #### C BC ####[facility] Xftx[address]fe[address] [place] [address]Dr. Erasmo Smith RBC 3.69 106/ul Critically low 4.20-5.40 [facility] Comment on above: Performed By: #### C BC ####[facility] Psqpg[address]zmp[address] [place] [address]DrMeena Smith WBC 17.2 103/ul Critically high 4.0-11.0 [facility] Comment on above: Performed By: #### C BC ####[facility] Wcj[address]nah4[address] [place] [address]Dr. Erasmo Smith MAGNESIUMon 12-03-2022 Magnesium [Mass/Vol] 1.9 mg/dL Normal 1.8-2.4 [facility] Comment on above: Performed By: #### B SCANNING CLERK #### [facility] [address] [place], [place] [address] Dr. Erasmo Smith PROF 14(COMP METB)on 023 Albumin [Mass/Vol] 2.6 g/dL Critically low 3.4-5.0 [facility] Comment on above: Performed By: #### B SCANNING CLERK #### [facility] [address] [place] [address] Dr. Erasmo Smith Albumin/Globulin [Mass ratio] 0.6 {ratio} Normal [facility] Comment on above: Performed By: #### B SCANNING CLERK #### [facility] [address] [place] [address] Dr. Erasmo Smith ALP [Catalytic activity/Vol] 123 U/L Critically high 46-116 [facility] Comment on above: Performed By: #### B SCANNING CLERK #### [facility] [address] [place] [address] Dr. Erasmo Smith ALT [Catalytic activity/Vol] 28 U/L Normal 14-59 [facility] Comment on above: Performed By: #### B SCANNING CLERK #### [facility] [address] [place] [address] Dr. Erasmo Smith Anion gap [Moles/Vol] 9.4 mmol/L Normal [facility] Comment on above: Performed By: #### B SCANNING CLERK #### [facility] [address] [place] [address] Dr. Erasmo Smith AST [Catalytic activity/Vol] 21 U/L Normal 15-37 [facility] Comment on above: Performed By: #### B SCANNING CLERK #### [facility] [address] [place] [address] Dr. Erasmo Smith Bilirubin [Mass/Vol] 0.3 mg/dL Normal 0.2-1.0 [facility] Comment on above: Performed By: #### B SCANNING CLERK #### [facility] [address] [place] [address] Dr. Erasmo Smith Calcium [Mass/Vol] 8.3 mg/dL Critically low 8.5-10.1 [facility] Comment on above: Performed By: #### B SCANNING CLERK #### [facility] [address] [place] [address] Dr. Erasmo Smith Chloride [Moles/Vol] 105 mmol/L Normal 98-107 [facility] Comment on above: Performed By: #### B SCANNING CLERK #### [facility] [address] [place] [address] Dr. Erasmo Smith CO2 [Moles/Vol] 27.1 mmol/L Normal 21.0-32.0 [facility] Comment on above: Performed By: #### B SCANNING CLERK #### [facility] [address] [place] [address] Dr. Erasmo Smith Creatinine [Mass/Vol] 0.55 mg/dL Normal 0.55-1.02 [facility] Comment on above: Performed By: #### B SCANNING CLERK #### [facility] [address] [place] [address] Dr. Erasmo Smith EGFR-AF GUATEMALAN >60 Normal >=60 [facility] Comment on above: Performed By: #### B SCANNING CLERK #### [facility] [address] [place] [address] Dr. Erasmo Smith EGFR-NON AF GUATEMALAN >60 Normal >=60 [facility] Comment on above: Performed By: #### B SCANNING CLERK #### [facility] [address] [place] [address] Dr. Erasmo Smith Globulin (S) [Mass/Vol] 4.0 g/dL Normal [facility] Comment on above: Performed By: #### B SCANNING CLERK #### [facility] [address] [place] [address] Dr. Erasmo Smith Glucose [Mass/Vol] 132 mg/dL Critically high 74-106 [facility] Comment on above: Performed By: #### B SCANNING CLERK #### [facility] [address] [place] [address] Dr. Erasmo Smith Potassium [Moles/Vol] 3.5 mmol/L Normal 3.5-5.1 [facility] Comment on above: Performed By: #### B SCANNING CLERK #### [facility] [address] [place] [address] Dr. Erasmo Smith Protein [Mass/Vol] 6.6 g/dL Normal 6.4-8.2 [facility] Comment on above: Performed By: #### B SCANNING CLERK #### [facility] [address] [place] [address] Dr. Erasmo Smith Sodium [Moles/Vol] 138 mmol/L Normal 136-145 [facility] Comment on above: Performed By: #### B SCANNING CLERK #### [facility] [address] [place] [address] [address] Erasmo Smith Urea nitrogen [Mass/Vol] 24.0 mg/dL Critically high 7.0-18.0 [facility] Comment on above: Performed By: #### B SCANNING CLERK #### [facility] [address] [place] [address] Dr. Erasmo Smith Urea nitrogen/Creatinine [Mass ratio] 43.6 mg/mg Normal [facility] Comment on above: Performed By: #### B SCANNING CLERK #### [facility] [address] [place] [address] Dr. Erasmo Smith PROTIMEon 12-03-2022 INR Coag (PPP) [Relative time] 4.41 {INR} Critically high [facility] Comment on above: Performed By: #### C MREP #### [facility] [address] [place] [address] Dr. Erasmo Smith INR GUIDELINES SEE BELOW Normal [facility] Comment on above: Result Comment: ABNER RED INR: 2.0 - 3.0 CONDITIONS NOT LISTED BELOW 2.5 - 3.5 FOR PROSTHETIC HEART VALVE REPLACEMENT 2.5 - 3.5 RECURRENT THROMBOSIS Performed By: #### C MREP #### [facility] [address] [place] [address] Dr. Erasmo Smith PT Coag (PPP) [Time] 43.0 s Critically high 9.0-11.6 [facility] Comment on above: Performed By: #### C MREP #### [facility] [address] [place] [address] Dr. Erasmo Smith BLOOD CULTURE ID PANELon A. baumannii Not detected Normal NOT DETECTED [facility] Comment on above: Performed By: #### B CID2 ####[facility] Icuxiz[address]igj[address] [place], [place] [address]Dr. Erasmo Smith Bacteriodes fragilis Not detected Normal NOT DETECTED [facility] Comment on above: Performed By: #### B CID2 ####[facility] [address], [place] [address]Ra. Yilan Smith BCID CONTROLS PASSED Normal [facility] Comment on above: Performed By: #### B CID2 ####[facility] [address]xprfv[address] [place] [id number]. Yiean Smith BCIDBTHD BLOOD CULTURE BOTTLE INFORMATION Normal [facility] Comment on above: Performed By: #### B CID2 ####[facility] [address]xe[address] [place] [id number]. Yiean Smith BCIDHD1 ANTIMICROBIAL RESISTANCE GENES [facility] Comment on above: Performed By: #### B CID2 ####[facility] [address]zz[address] [place] [address]Dr. Yiean Smith BCIDHD2 SEE BELOW [facility] Comment on above: Result Comment: Note : Antimicrobial resitance can occur via multiple mechanisms. A Not Detected result for the [employer] antomicrobial resistance gene assays does not indicate antimicrobial susceptibility. Subculturing is required for species identification and susceptibility testing of isolates. Performed By: #### B CID2 ####[facility] [address]bx[address] [place] [address]Dr. Yiean Smith BCIDHD3 Positive [facility] Comment on above: Performed By: #### B CID2 ####[facility] [address]jft[address] [place] [address]Dr. Yilan Smith BCIDHD4 Negative [facility] Comment on above: Performed By: #### B CID2 ####[facility] Sms[address]ups[address]cc[address] [place] [address]Dr. Yiean Smith BCIDHD5 YEAST Normal [facility] Comment on above: Performed By: #### B CID2 ####[facility] Zvvwzvzdza[address] [place] [address]Dr. Yilan Smith Bottle Set: Set 1 Normal [facility] Comment on above: Performed By: #### B CID2 ####[facility] O[address]ftem[address] [place] [address]Dr. Yilan Smith Bottle: Anaerobic Normal [facility] Comment on above: Performed By: #### B CID2 ####[facility] [address] [place], [place] [address]Dr. Yiean Smith C. neoformans/gattii Not detected Normal NOT DETECTED [facility] Comment on above: Performed By: #### B CID2 ####[facility] Nwhebmqbpo[address] [place], [place] [address]Dr. Erasmo Smith Naye albicans Not detected Normal NOT DETECTED [facility] Comment on above: Performed By: #### B CID2 ####[facility] Ifhikvblzz[address] [place] [address]Dr. Erasmo Smith Naye auris Not detected Normal NOT DETECTED [facility] Comment on above: Performed By: #### B CID2 ####[facility] Daaexwmwxh[address] [place], [place] [address]Dr. Yiean Smith Naye glabrata Not detected Normal NOT DETECTED [facility] Comment on above: Performed By: #### B CID2 ####[facility] Lgjspbsaek[address] [place], [place] [address]Dr. Erasmo Smith Naye Krusei Not detected Normal NOT DETECTED [facility] Comment on above: Performed By: #### B CID2 ####[facility] Rexrutsprx419[address] [place], [place] [address]Dr. Erasmo Smith Naye Parapsilosis Not detected Normal NOT DETECTED [facility] Comment on above: Performed By: #### B CID2 ####[facility] Waafrsdvjb[address] [place], [place] [address]Dr. Erasmo Smith Naye Tropicalis Not detected Normal NOT DETECTED [facility] Comment on above: Performed By: #### B CID2 ####[facility] Zppwgzysuh[address] [place], [place] [address]Dr. Erasmo Smith CTX-M Resistant Gene Not Applicable Normal NOT DETECTE D [facility] Comment on above: Performed By: #### B CID2 ####[facility] Ztlabkuzzq[address] [place], [place] [address]Dr. Erasmo Smith E. Cloacae complex Not detected Normal NOT DETECTED [facility] Comment on above: Performed By: #### B CID2 ####[facility] Psalmqfstu[address] [place], [place] [address]Dr. Erasmo Smith E. faecalis Not detected Normal NOT DETECTED [facility] Comment on above: Performed By: #### B CID2 ####[facility] Rtvjuezwbn[address] [place], [place] [address]Dr. Erasmo Smith E. faecium Not detected Normal NOT DETECTED [facility] Comment on above: Performed By: #### B CID2 ####[facility] Tolrertetl[address] [place], [place] [address]Dr. Erasmo Smith Enterobacteriaceae Detected Critically abnormal NOT DETECTED [facility] Comment on above: Performed By: #### B CID2 ####[facility] Kmsjivpfjp[address] [place], [place] [address]Dr. Erasmo Smith Escherichia coli Detected Critically abnormal NOT DETECTED [facility] Comment on above: Performed By: #### B CID2 ####[facility] Vrthoosnjr[address] [place], [place] [address]Dr. Heavenean Smith H. influenzae Not detected Normal NOT DETECTED [facility] Comment on above: Performed By: #### B CID2 ####[facility] Fieofsbohr[address] [place], [place] [address]Dr. Erasmo Smith IMP Resistant Gene Not Applicable Normal NOT DETECTED [facility] Comment on above: Performed By: #### B CID2 ####[facility] Rnwkvnptuu[address] [place], [place] [address]Dr. Erasmo Smith K. oxytoca Not detected Normal NOT DETECTED [facility] Comment on above: Performed By: #### B CID2 ####[facility] Amahsrqrjq[address] [place], [place] [address]Dr. Erasmo Smith K. pneumoniae Not detected Normal NOT DETECTED [facility] Comment on above: Performed By: #### B CID2 ####[facility] Yucsnpffrl[address] [place], [place] [address]Dr. Erasmo Smith Klebsiella aerogenes Not detected Normal NOT DETECTED [facility] Comment on above: Performed By: #### B CID2 ####[facility] Ymlqbzsmgu[address] [place], [place] [address]Dr. Erasmo Smith KPC Resistant Gene Not detected Normal NOT DETECTED [facility] Comment on above: Performed By: #### B CID2 ####[facility] Ditskjhxsv[address] [place] [address]Dr. Heavenean Smith List. monocytogenes Not detected Normal NOT DETECTED T [facility] Comment on above: Performed By: #### B CID2 ####[facility] Mgwszegnpx[address] [place], [place] [address]Dr. Erasmo Luis Mcr-1 Resistant Gene Not Applicable Normal NOT DETECTE D [facility] Comment on above: Performed By: #### B CID2 ####[facility] Lgfmshvmwh[address] [place], [place] [address]Dr. Erasmo Smith mecA/C Not Applicable Normal NOT DETECTED [facility] Comment on above: Performed By: #### B CID2 ####[facility] Ozcixkcanh[address] [place], [place] [address]Dr. Erasmo Luis mecA/C MREJ Not Applicable Normal NOT DETECTED [facility] Comment on above: Performed By: #### B CID2 ####[facility] Yhxwzcmwmu[address] [place], [place] [address]Dr. Erasmo Luis N. meningitidis Not detected Normal NOT DETECTED [facility] Comment on above: Performed By: #### B CID2 ####[facility] Ktkkfkdesy[address] [place], [place] [address]Dr. Erasmo Luis NDM Resistant Gene Not Applicable Normal NOT DETECTED [facility] Comment on above: Performed By: #### B CID2 ####[facility] Dqruiniktz[address] [place], [place] [address]Dr. Erasmo Luis Oxa-48-like Not Applicable Normal NOT DETECTED [facility] Comment on above: Performed By: #### B CID2 ####[facility] Htzqkopguw[address] [place], [place] [address]Dr. Heavenean Smith Proteus Not detected Normal NOT DETECTED [facility] Comment on above: Performed By: #### B CID2 ####[facility] Zgfsebvfmg407[address] [place], [place] [address]Dr. Erasmo Smith Pseud. aeruginosa Not detected Normal NOT DETECTED [facility] Comment on above: Performed By: #### B CID2 ####[facility] T[address]wk[address]wvwop[address] [place] [address]Dr. Erasmo Smith S. maltophilia Not detected Normal NOT DETECTED [facility] Comment on above: Performed By: #### B CID2 ####[facility] Zvxdiqzsrn[address] [place], [place] [address]Dr. Erasmo Smith Salmonella Not detected Normal NOT DETECTED [facility] Comment on above: Performed By: #### B CID2 ####[facility] Uoqcwpjwbf[address] [place], [place] [address]Dr. Erasmo Smith Seratia marcescens Not detected Normal NOT DETECTED [facility] Comment on above: Performed By: #### B CID2 ####[facility] Mqgjsaudmo[address] [place], [place] [address]Dr. Erasmo Smith Site: l ac Normal [facility] Comment on above: Performed By: #### B CID2 ####[facility] [address]grhizkqx[address] [place], [place] [address]Dr. Erasmo Smith Staph. aureus Not detected Normal NOT DETECTED [facility] Comment on above: Performed By: #### B CID2 ####[facility] Ukhnjugzdl[address] [place], [place] [address]Dr. Erasmo Smith Staph. epidermidis Not detected Normal NOT DETECTED [facility] Comment on above: Performed By: #### B CID2 ####[facility] Lvyxkmxknj[address] [place], [place] [address]Dr. Erasmo Smith Staph. lugdunensis Not detected Normal NOT DETECTED [facility] Comment on above: Performed By: #### B CID2 ####[facility] Luiuqmnzru[address] [place], [place] [address]Dr. Erasmo Smith Staphylococcus Not detected Normal NOT DETECTED [facility] Comment on above: Performed By: #### B CID2 ####[facility] [address]fdcwf[address]lw[address] [place], [place] [address]Dr. Erasmo Smith Strep. agalactiae Not detected Normal NOT DETECTED [facility] Comment on above: Performed By: #### B CID2 ####[facility] [address] [place] [address]Dr. Erasmo Smith Strep. pneumoniae Not detected Normal NOT DETECTED [facility] Comment on above: Performed By: #### B CID2 ####[facility] [address] [place] [address]Dr. Erasmo Smith Strep. pyogenes Not detected Normal NOT DETECTED [facility] Comment on above: Performed By: #### B CID2 ####[facility] Zukuanstax[address] [place], [place] [address]Dr. Erasmo Smith Streptococcus Not detected Normal NOT DETECTED [facility] Comment on above: Performed By: #### B CID2 ####[facility] Yztjschsm[address] [place], [place] [address]Dr. Erasmo Smith Fran/B Resist. Gene Not detected Normal NOT DETECTED [facility] Comment on above: Performed By: #### B CID2 ####[facility] Tmgynmev[address] [place], [place] [address]Dr. Erasmo Smith VIM Resistant Gene Not Applicable Normal NOT DETECTED [facility] Comment on above: Performed By: #### B CID2 ####[facility] N[address]psd[address] [place], [place] [address]Dr. Erasmo Smith BNPon 12-02-2022 Natriuretic peptide B (Bld) [Mass/Vol] 1059.0 pg/mL Normal <=1,800.0 [facility] Comment on above: Performed By: #### B SCANNING CLERK #### [facility] [address] [address] [address] Erasmo Smith CBC AUTO DIFFon 12-02-2022 BASO # 0.0 103/ul Normal 0.0-0.1 [facility] Comment on above: Performed By: #### C BC ####[facility] Jwsngtnqzu[address] [place], [place] [address]DrMeena Smith Basophils/100 WBC (Bld) 0.2 % Normal 0.2-2.0 [facility] Comment on above: Performed By: #### C BC ####[facility] [address]vum[address] [place], [place] [address]DrMeena Smith EO # 0.0 103/ul Normal 0.0-0.7 [facility] Comment on above: Performed By: #### C BC ####[facility] [address] [place] [address]Dr. Erasmo Smith Eosinophils/100 WBC (Bld) 0.0 % Critically low 0.9-7.0 [facility] Comment on above: Performed By: #### C BC ####[facility] Hlqhfrsyrw[address] [place], [place] [address]Dr. Erasmo Smith Erythrocyte distribution width (RBC) [Ratio] 17.3 % Critically high 11.0-15.0 [facility] Comment on above: Performed By: #### C BC ####[facility] Acdmutonxl[address] [place], [place] [address]Dr. Erasmo Smith Hematocrit (Bld) [Volume fraction] 31.4 % Critically low 36.0-48.0 [facility] Comment on above: Performed By: #### C BC ####[facility] Tspjqvgrch[address] [place], [place] [address]Dr. Erasmo Smith Hemoglobin (Bld) [Mass/Vol] 10.0 g/dL Critically low 12.0-16.0 [facility] Comment on above: Performed By: #### C BC ####[facility] [address]pxhampvhm[address] [place], [place] [address]Dr. Erasmo Smith IG # 0.06 10e3/ul Critically high 0.00-0.03 [facility] Comment on above: Performed By: #### C BC ####[facility] Dsvedbmiiu[address] [place], [place] [address]Dr. Erasmo Smith IG % 0.4 % Normal 0.0-0.5 [facility] Comment on above: Performed By: #### C BC ####[facility] Hseqvowtwp[address] [place], [place] [address]Dr. Erasmo Smith LYMPH # 1.3 103/ul Normal 1.2-3.8 [facility] Comment on above: Performed By: #### C BC ####[facility] Otpshykiiz[address] [place], [place] [address]Dr. Erasmo Smith Lymphocytes/100 WBC (Bld) 8.1 % Critically low 20.5-60.0 [facility] Comment on above: Performed By: #### C BC ####[facility] [address] [place] [address]DrMeena Smith MANUAL DIFF REQ NO Normal [facility] Comment on above: Performed By: #### C BC ####[facility] [address]tr[address] [place] [address]Dr. Erasmo Smith MCH (RBC) [Entitic mass] 25.6 pg Critically low 26.7-34.0 [facility] Comment on above: Performed By: #### C BC ####[facility] Rpffwofara[address] [place], [place] [address]Dr. Erasmo Smith MCHC (RBC) [Mass/Vol] 31.8 g/dL Normal 29.9-35.2 [facility] Comment on above: Performed By: #### C BC ####[facility] Azlbzfykyp[address] [place], [place] [address]DrMeena Smith MCV (RBC) [Entitic vol] 80.3 fL Critically low 81.0-99.0 [facility] Comment on above: Performed By: #### C BC ####[facility] Ssqtaxsrrg[address] [place], [place] [address]Dr. Erasmo Smith MONO # 0.6 103/ul Normal 0.3-0.8 [facility] Comment on above: Performed By: #### C BC ####[facility] Gcwyxwbhyn[address] [place], [place] [address]DrMeena Smith Monocytes/100 WBC (Bld) 3.7 % Normal 1.7-12.0 [facility] Comment on above: Performed By: #### C BC ####[facility] Ebldndadrh[address] [place], [place] [address]DrMeena Smith NEUT # 14.5 103/ul Critically high 1.4-6.5 [facility] Comment on above: Performed By: #### C BC ####[facility] Lnjjbserhg[address] [place], [place] [address]Dr. Erasmo Smith Neutrophils/100 WBC (Bld) 87.6 % Critically high 43.0-75.0 [facility] Comment on above: Performed By: #### C BC ####[facility] [address] [place], [place] [address]Jj. Erasmo Smith Platelet mean volume (Bld) [Entitic vol] 10.0 fL Normal 9.5-13.5 [facility] Comment on above: Performed By: #### C BC ####[facility] Aqkygtbrpv13[address] [place], [place] [address]Jd. Erasmo Smith PLT 206 103/ul Normal 150-450 [facility] Comment on above: Performed By: #### C BC ####[facility] [address]neycw[address] [place] [id number]. Erasmo Smith RBC 3.91 106/ul Critically low 4.20-5.[address] [facility] Comment on above: Performed By: #### C BC ####[facility] [address]xe[address] [place] [id number]. Erasmo Smith WBC 16.5 103/ul Critically high 4.0-11.0 [facility] Comment on above: Performed By: #### C BC ####[facility] T[address]zcxa[address] [place], [place] [address]Co. Erasmo Smith ECHOCARDIO M/2D COMPLETEon 0 12-02-2022 ECHOCARDIO M/2D COMPLETE Patient: BREANN STARKS Exam Date: 12/02/2022 : 1945 Gender:F Ordering : KAYLEY HOLMAN . Admission #: [id number] Family : DR LUISANA JOHNSON . Order #: [id number] CLICK HERE TO VIEW EXAM ECHOCARDIOGRAM REPORT [...] Salazar M.D. on 12/02/2022 at 21:58 Normal [facility] MAGNESIUMon 12-02-2022 Magnesium [Mass/Vol] 2.0 mg/dL Normal 1.8-2.4 [facility] Comment on above: Performed By: #### B SCANNING CLERK #### [facility] [address] [place] [address] Dr. Erasmo Smith PROF 14(COMP METB)on 023 Albumin [Mass/Vol] 2.7 g/dL Critically low 3.4-5.0 [facility] Comment on above: Performed By: #### B SCANNING CLERK #### [facility] [address] [place] [address] Dr. Erasmo Smith Albumin/Globulin [Mass ratio] 0.6 {ratio} Normal [facility] Comment on above: Performed By: #### B SCANNING CLERK #### [facility] [address] [place] [address] Dr. Erasmo Smith ALP [Catalytic activity/Vol] 128 U/L Critically high 46-116 [facility] Comment on above: Performed By: #### B SCANNING CLERK #### [facility] [address] [place] [address] Dr. Erasmo Smtih ALT [Catalytic activity/Vol] 34 U/L Normal 14-59 [facility] Comment on above: Performed By: #### B SCANNING CLERK #### [facility] [address] [place] [address] Dr. Erasmo Smith Anion gap [Moles/Vol] 10.6 mmol/L Normal [facility] Comment on above: Performed By: #### B SCANNING CLERK #### [facility] [address] [place] [address] Dr. Erasmo Smith AST [Catalytic activity/Vol] 27 U/L Normal 15-37 [facility] Comment on above: Performed By: #### B SCANNING CLERK #### [facility] [address] [place] [address] Dr. Erasom Smith Bilirubin [Mass/Vol] 0.5 mg/dL Normal 0.2-1.0 [facility] Comment on above: Performed By: #### B SCANNING CLERK #### [facility] [address] [place] [address] Dr. Erasmo Smith Calcium [Mass/Vol] 8.4 mg/dL Critically low 8.5-10.1 [facility] Comment on above: Performed By: #### B SCANNING CLERK #### [facility] [address] [place] [address] Dr. Erasmo Smith Chloride [Moles/Vol] 104 mmol/L Normal 98-107 [facility] Comment on above: Performed By: #### B SCANNING CLERK #### [facility] [address] [place] [address] Dr. Erasmo Smith CO2 [Moles/Vol] 26.2 mmol/L Normal 21.0-32.0 [facility] Comment on above: Performed By: #### B SCANNING CLERK #### [facility] [address] [place] [address] Dr. Erasmo Smith Creatinine [Mass/Vol] 0.52 mg/dL Critically low 0.55-1.02 [facility] Comment on above: Performed By: #### B SCANNING CLERK #### [facility] [address] [place] [address] Dr. Erasmo Smith EGFR-AF GUATEMALAN >60 Normal >=60 [facility] Comment on above: Performed By: #### B SCANNING CLERK #### [facility] [address] [place] [address] Dr. Erasmo Smith EGFR-NON AF GUATEMALAN >60 Normal >=60 [facility] Comment on above: Performed By: #### B SCANNING CLERK #### [facility] [address] [place] [address] Dr. Erasmo Smith Globulin (S) [Mass/Vol] 4.3 g/dL Normal [facility] Comment on above: Performed By: #### B SCANNING CLERK #### [facility] [address] [place] [address] [address] Erasmo Smith Glucose [Mass/Vol] 135 mg/dL Critically high 74-[address] [facility] Comment on above: Performed By: #### B SCANNING CLERK #### [facility] [address] [place] [address] [address] Erasmo Smith Potassium [Moles/Vol] 3.8 mmol/L Normal 3.5-5.1 [facility] Comment on above: Performed By: #### B SCANNING CLERK #### [facility] [address] [address] [address] Erasmo Smith Protein [Mass/Vol] 7.0 g/dL Normal 6.4-8.2 [facility] Comment on above: Performed By: #### B SCANNING CLERK #### [facility] [address] [address] [address] Erasmo Smith Sodium [Moles/Vol] 137 mmol/L Normal 136-145 [facility] Comment on above: Performed By: #### B SCANNING CLERK #### [facility] [address] [address] [address] Erasmo Smith Urea nitrogen [Mass/Vol] 16.0 mg/dL Normal 7.0-18.0 [facility] Comment on above: Performed By: #### B SCANNING CLERK #### [facility] [address] [place] [address] [address] Erasmo Smith Urea nitrogen/Creatinine [Mass ratio] 30.8 mg/mg Normal [facility] Comment on above: Performed By: #### B SCANNING CLERK #### [facility] [address] [address] [address] Erasmo Smith PROTIMEon 12-02-2022 INR Coag (PPP) [Relative time] 4.39 {INR} Critically high [facility] Comment on above: Performed By: #### P T #### [facility] [address] [address] [address] Erasmo Smith INR GUIDELINES SEE BELOW Normal [facility] Comment on above: Result Comment: ABNER RED INR: 2.0 - 3.0 CONDITIONS NOT LISTED BELOW 2.5 - 3.5 FOR PROSTHETIC HEART VALVE REPLACEMENT 2.5 - 3.5 RECURRENT THROMBOSIS Performed By: #### P T #### [facility] [address] [place] [address] [address] Erasmo Smith PT Coag (PPP) [Time] 42.8 s Critically high 9.0-11.6 [facility] Comment on above: Performed By: #### P T #### [facility] [address] [place] [address] [address] Erasmo Smith UA RANDOM W/MICROSCOPICon BACTERIA NONE SEEN Normal NONE SEEN [facility] Comment on above: Performed By: #### U AMIC ####[facility] [address] [place] [address]Dr. Erasmo Smith Bilirubin Ql (U) Negative Normal NEGATIVE [facility] Comment on above: Performed By: #### U AMIC ####[facility] [address]wr[address] [place] [address]Dr. Erasmo Smith CAST NONE SEEN Normal NONE SEEN [facility] Comment on above: Performed By: #### U AMIC ####[facility] [address] [place] [address]Dr. Erasmo Smith Clarity (U) CLEAR Normal CLEAR [facility] Comment on above: Performed By: #### U AMIC ####[facility] [address]lotdzy[address] [place] [address]Dr. Erasmo Smith Color (U) YELLOW Normal YELLOW [facility] Comment on above: Performed By: #### U AMIC ####[facility] [address] [place] [address]Dr. Erasmo Smith Crystals LM Nom (Urine sed) NONE SEEN Normal NONE SEEN [facility] Comment on above: Performed By: #### U AMIC ####[facility] [address]xthzbjezg[address] [place] [address]Dr. Erasmo Smith Epithelial cells LM Ql (Urine sed) RARE Normal NONE SEEN /RARE [facility] Comment on above: Performed By: #### U AMIC ####[facility] [address]kt[address] [place] [address]Dr. Erasmo Smith Glucose Ql (U) Negative Normal NEGATIVE [facility] Comment on above: Performed By: #### U AMIC ####[facility] [address] [place], [place] [address]Dr. Erasmo Smith Hemoglobin Ql (U) SMALL Abnormal NEGATIVE [facility] Comment on above: Performed By: #### U AMIC ####[facility] [address] [place], [place] [address]Dr. Erasmo Smith Ketones Ql (U) 15 mg/dl Abnormal NEGATIVE [facility] Comment on above: Performed By: #### U AMIC ####[facility] [address] [place], [place] [address]Dr. Erasmo Smith LEUKOCYTES Negative Normal NEGATIVE [facility] Comment on above: Performed By: #### U AMIC ####[facility] Ccrbiqsnkn[address] [place], [place] [address]Dr. Erasmo Smith MUCOUS NONE SEEN Normal NONE SEEN [facility] Comment on above: Performed By: #### U AMIC ####[facility] As[address]ptjtkx[address] [place], [place] [address]Dr. Erasmo Smith Nitrite Ql (U) Negative Normal NEGATIVE [facility] Comment on above: Performed By: #### U AMIC ####[facility] [address]mzkvn[address] [place], [place] [address]Dr. Erasmo Smith pH (U) 6.0 [pH] Normal 5-9 [facility] Comment on above: Performed By: #### U AMIC ####[facility] [address]arcjmxkpy[address] [place], [place] [address]Dr. Erasmo Smith RBC 0-2 Normal 0-2 [facility] Comment on above: Performed By: #### U AMIC ####[facility] [address]sc[address]wxb[address] [place], [place] [address]Dr. Erasmo Smith SPEC GRAVITY 1.025 Normal 1.005-<=1.02 5 [facility] Comment on above: Performed By: #### U AMIC ####[facility] [address]as[address]xm[address] [place], [place] [address]DrMeena Smith UA PROTEIN TRACE Normal NEGATIVE/ TRACE [facility] Comment on above: Performed By: #### U AMIC ####[facility] [address] [place] [address]Dr. Erasmo Smith Urobilinogen Qn (U) 4 {Shraddha'U}/dL Abnormal 0.2 - 1.0 [facility] Comment on above: Performed By: #### U AMIC ####[facility] [address] [place] [address]Dr. Erasmo Smith WBC 0-2 Abnormal NONE SEEN [facility] Comment on above: Performed By: #### U AMIC ####[facility] [address] [place] [address]Dr. Erasmo Smith CARDIAC ROSA ELENA 3-6on 3 CK [Catalytic activity/Vol] 53 U/L Normal 26-192 [facility] Comment on above: Performed By: #### C MREP #### [facility] [address] [address] [address] Erasmo Smith CK.MB [Mass/Vol] 0.90 ng/mL Normal <=3.60 [facility] Comment on above: Performed By: #### C MREP #### [facility] [address] [address] [address] Erasmo Smith HSTROP 116.7 pg/mL Critically high 4.0-51.3 [facility] Comment on above: Result Comment: CUT- OFF POINTS HAVE BEEN ESTABLISHED BASED ON THE FOURTH UNIVERSAL DEFINITIONS OF MYOCARDIAL INFARCTION. THE UPPER REFERENCE LIMIT (URL) OF TROPONIN, DEFINED THE 99TH PERCENTILE OF cTnI DISTRIBUTION IN A REFERENCE POPULATION, HAS BEEN CONFIRMED THE DECISION THRESHOLD FOR GA DIAGNOSIS. Performed By: #### C MREP #### [facility] [address] [address] [address] Erasmo Smith CK [Catalytic activity/Vol] 47 U/L Normal 26-192 [facility] Comment on above: Performed By: #### B SCANNING CLERK #### [facility] [address] [address] [address] Erasmo Smith CK.MB [Mass/Vol] 1.00 ng/mL Normal <=3.60 [facility] Comment on above: Performed By: #### B SCANNING CLERK #### [facility] [address] [place] [address] Dr. Erasmo Smith HSTROP 154.3 pg/mL Critically high 4.0-51.3 [facility] Comment on above: Result Comment: CUT- OFF POINTS HAVE BEEN ESTABLISHED BASED ON THE FOURTH UNIVERSAL DEFINITIONS OF MYOCARDIAL INFARCTION. THE UPPER REFERENCE LIMIT (URL) OF TROPONIN, DEFINED THE 99TH PERCENTILE OF cTnI DISTRIBUTION IN A REFERENCE POPULATION, HAS BEEN CONFIRMED THE DECISION THRESHOLD FOR GA DIAGNOSIS. Performed By: #### B SCANNING CLERK #### [facility] [address] [place] [address] Dr. Erasmo Smith CBC W MANUAL DIFFon 12-02-19 23 ATYPICAL LYMPH # Normal [facility] Comment on above: Performed By: #### C ANGELA #### [facility] [address] [place] [address] Dr. Erasmo Smith ATYPICAL LYMPH % Normal [facility] Comment on above: Performed By: #### C ANGELA #### [facility] [address] [place] [address] Dr. Erasmo Smith BAND # 0.6 103/ul Critically high 0.0-0.[address] [facility] Comment on above: Performed By: #### C ALHAJIMAN #### [facility] [address] [place] [address] Dr. Erasmo Smith BAND % 3 % Normal 0-5 [facility] Comment on above: Performed By: #### C BCMAN #### [facility] [address] [place] [address] Dr. Erasmo Smith BASOM # 0.00 103/ul Normal 0.00-0.10 [facility] Comment on above: Performed By: #### C ALHAJIMAN #### [facility] [address] [place] [address] Dr. Erasmo Smith BASOM % 0.0 % Critically low 0.2-2.0 [facility] Comment on above: Performed By: #### C ALHAJIMAN #### [facility] [address] [address] [address] Erasmo Smith BLAST # Normal [facility] Comment on above: Performed By: #### C BCMAN #### [facility] [address] [address] [address] Erasmo Smith BLAST % Normal [facility] Comment on above: Performed By: #### C BCMAN #### [facility] [address] [address] [address] Erasmo Smith CORRECTED WBC Normal 4.0-11.0 [facility] Comment on above: Performed By: #### C BCMAN #### [facility] [address] [address] [address] Erasmo Smith EOS # 0.19 103/ul Normal 0.00-0.70 [facility] Comment on above: Performed By: #### C BCBLAISE #### [facility] [address] [place] [address] Dr. Erasmo Smith EOS% 1.0 % Normal 0.9-7.0 [facility] Comment on above: Performed By: #### C BCBLAISE #### [facility] [address] [address] [address] Erasmo Smith HCT 32.7 % Critically low 36.0-48.0 [facility] Comment on above: Performed By: #### C BCBLAISE #### [facility] [address] [place] [address] Dr. Erasmo Smith HGB 10.5 g/dl Critically low 12.0-16.0 [facility] Comment on above: Performed By: #### C BCMAN #### [facility] [address] [address] [address] Erasmo Smith LYMPHM # 0.76 103/ul Critically low 1.20-3.[address] [facility] Comment on above: Performed By: #### C BCMAN #### [facility] [address] [address] [address] Erasmo Smith LYMPHM% 4.0 % Critically low 20.5-60.0 [facility] Comment on above: Performed By: #### C BCMAN #### [facility] [address] [address] [address] Erasmo Smith MCH 25.9 pg Critically low 26.7-34.0 [facility] Comment on above: Performed By: #### C ANGELA #### [facility] [address] [address] [address] Erasmo Smith MCHC 32.1 g/dl Normal 29.9-35.2 [facility] Comment on above: Performed By: #### C ANGELA #### [facility] [address] [address] [address] Erasmo Smith MCV 80.5 fL Critically low 81.0-99.0 [facility] Comment on above: Performed By: #### C ANGELA #### [facility] [address] [place] [address] Dr. Erasmo Smith METAMYELOCYTE # Normal [facility] Comment on above: Performed By: #### C ANGELA #### [facility] [address] [place] [address] Dr. Erasmo Smith METAMYELOCYTE % Normal [facility] Comment on above: Performed By: #### C ANGELA #### [facility] [address] [place] [address] Dr. Erasmo Smith MONOM# 1.14 103/ul Critically high 0.30-0.80 [facility] Comment on above: Performed By: #### C ANGELA #### [facility] [address] [place] [address] Dr. Erasmo Smith MONOM% 6.0 % Normal 1.7-12.0 [facility] Comment on above: Performed By: #### C ANGELA #### [facility] [address] [place] [address] Dr. Erasmo Smith MPV 9.4 fL Critically low 9.5-13.5 [facility] Comment on above: Performed By: #### C ANGELA #### [facility] [address] [place] [address] Dr. Erasmo Smith MYELOCYTE # Normal [facility] Comment on above: Performed By: #### C ANGELA #### [facility] [address] [address] [address] Erasmo Smith MYELOCYTE % Normal [facility] Comment on above: Performed By: #### C ANGELA #### [facility] [address] [address] [address] Earsmo Smith NRBC Normal [facility] Comment on above: Performed By: #### C ANGELA #### [facility] [address] [address] [address] Erasmo Smith PLT 195 103/ul Normal 150-450 [facility] Comment on above: Performed By: #### C ANGELA #### [facility] [address] [address] [address] Erasmo Smith RBC 4.06 106/ul Critically low 4.20-5.40 [facility] Comment on above: Performed By: #### C ANGELA #### [facility] [address] [address] [address] Erasmo Smith RDW 17.7 % Critically high 11.0-15.0 [facility] Comment on above: Performed By: #### C ANGELA #### [facility] [address] [address] [address] Erasmo Smith SEG # 16.34 103/ul Critically high 1.40-6.50 [facility] Comment on above: Performed By: #### C ANGELA #### [facility] [address] [address] [address] Erasmo Smith SEG % 86.0 % Critically high 43.0-75.0 [facility] Comment on above: Performed By: #### C ANGELA #### [facility] [id number] Erasmo Smith WBC 19.0 103/ul Critically high 4.0-11.0 [facility] Comment on above: Performed By: #### C ANGELA #### [facility] [address] [place] [address] HEAD WO CONon 03-22-[address] CT HEAD WO CON CT HEAD WO [...] SALOME MCCORMICK Date: 2022 14:50 Normal [facility] CULTURE BLOODon 2022 Microscopic examination of blood, culture Culture Observations: Aerobic and Anaerobic bottle positive. BCID: E. Coli Culture Observations: Refer to for VIOLET. Isolate 1 Escherichia coli Growth of Normal [facility] Comment on above: Performed By: #### B LDCX2 ####[facility] [address] [place], [place] [address]Qw. Erasmo Luis Covid-19 PCR (CVDTBH)on 11-11 SARS-CoV-2 (COVID-19) RNA EMILY+probe Ql (Unsp spec) Not detected Normal NOT DETECTED [facility] Comment on above: Result Comment: [...] for this test is supported by the Flight Physician of Health and Human Service's declaration that [...] used). Performed By: #### C MREP #### [facility] [address] [place] [address] [address] Erasmo Smith LACTATE/LACTIC ACIDon 2022 Lactate [Moles/Vol] 1.2 mmol/L Normal 0.4-2.0 [facility] Comment on above: Performed By: #### L ACT ####[facility] [address] [place] [address]Dr. Erasmo Smith PH VENOUS BLOODon 2022 PCO2 VENOUS 37.8 mmHg Critically low 40.0-52.0 [facility] Comment on above: Performed By: #### P HVEN ####[facility] [address] [place] [address]Dr. Erasmo Smith pH VENOUS 7.417 Normal 7.330-7.430 [facility] Comment on above: Performed By: #### P HVEN ####[facility] [address] [place] [address]DrMeena Smith PROF 14(COMP METB)on 023 Albumin [Mass/Vol] 3.1 g/dL Critically low 3.4-5.0 [facility] Comment on above: Performed By: #### H ALEXSANDER, CMP ####[facility] [address] [place] [address]DrMeena Smith Albumin/Globulin [Mass ratio] 0.8 {ratio} Normal [facility] Comment on above: Performed By: #### H ALEXSANDER, CMP ####[facility] [address] [place] [address]Dr. Erasmo Smith ALP [Catalytic activity/Vol] 194 U/L Critically high 46-116 [facility] Comment on above: Performed By: #### H ALEXSANDER, CMP ####[facility] [address] [place] [address]Dr. Erasmo Smith ALT [Catalytic activity/Vol] 37 U/L Normal 14-59 [facility] Comment on above: Performed By: #### H ALEXSANDER, CMP ####[facility] [address] [place] [address]Dr. Erasmo Smith Anion gap [Moles/Vol] 14.6 mmol/L Normal [facility] Comment on above: Performed By: #### H ALEXSANDER, CMP ####[facility] [address] [place], [place] [address]Dr. Erasmo Smith AST [Catalytic activity/Vol] 32 U/L Normal 15-37 [facility] Comment on above: Performed By: #### H ALEXSANDER, CMP ####[facility] [address] [place], [place] [address]Dr. Erasmo Smith Bilirubin [Mass/Vol] 1.0 mg/dL Normal 0.2-1.0 [facility] Comment on above: Performed By: #### H ALEXSANDER, CMP ####[facility] [address] [place], [place] [address]Dr. Erasmo Smith Calcium [Mass/Vol] 8.9 mg/dL Normal 8.5-10.1 [facility] Comment on above: Performed By: #### H ALEXSANDER, CMP ####[facility] [address] [place], [place] [address]Dr. Erasmo Smith Chloride [Moles/Vol] 103 mmol/L Normal 98-107 [facility] Comment on above: Performed By: #### H ALEXSANDER, CMP ####[facility] Q[address] [place], [place] [address]Dr. Erasmo Smith CO2 [Moles/Vol] 23.6 mmol/L Normal 21.0-32.0 [facility] Comment on above: Performed By: #### H ALEXSANDER, CMP ####[facility] Hutdqgl[address] [place], [place] [address]Dr. Erasmo Smith Creatinine [Mass/Vol] 0.69 mg/dL Normal 0.55-1.02 [facility] Comment on above: Performed By: #### H ALEXSANDER, CMP ####[facility] [address] [place], [place] [address]Dr. Erasmo Smith EGFR-AF GUATEMALAN >60 Normal >=60 [facility] Comment on above: Performed By: #### H STROPN, CMP ####[facility] [address] [place] [address]Dr. Erasmo Smith EGFR-NON AF GUATEMALAN >60 Normal >=60 [facility] Comment on above: Performed By: #### H STROPN, CMP ####[facility] [address] [place] [address]Dr. Erasmo Smith Globulin (S) [Mass/Vol] 4.1 g/dL Normal [facility] Comment on above: Performed By: #### H STROPN, CMP ####[facility] [address] [place] [address]Dr. Erasmo Smith Glucose [Mass/Vol] 121 mg/dL Critically high 74-106 [facility] Comment on above: Performed By: #### H STROPN, CMP ####[facility] [address] [place] [address]Dr. Erasmo Smith Potassium [Moles/Vol] 3.2 mmol/L Critically low 3.5-5.1 [facility] Comment on above: Performed By: #### H STROPN, CMP ####[facility] [address] [place], [place] [address]Dr. Erasmo Smith Protein [Mass/Vol] 7.2 g/dL Normal 6.4-8.2 [facility] Comment on above: Performed By: #### H STROPN, CMP ####[facility] [address] [place], [place] [address]Dr. Erasmo Smith Sodium [Moles/Vol] 138 mmol/L Normal 136-145 [facility] Comment on above: Performed By: #### H STROPN, CMP ####[facility] [address]fs[address] [place], [place] [address]Dr. Erasmo Smith Urea nitrogen [Mass/Vol] 17.0 mg/dL Normal 7.0-18.0 [facility] Comment on above: Performed By: #### H STROPN, CMP ####[facility] [address] [place] [address]Dr. Erasmo Smith Urea nitrogen/Creatinine [Mass ratio] 24.6 mg/mg Normal [facility] Comment on above: Performed By: #### H STROPN, CMP ####[facility] [address] [place] [address]Dr. Erasmo Smith PROTIMEon 2022 INR Coag (PPP) [Relative time] 3.58 {INR} Normal [facility] Comment on above: Performed By: #### P T, PTT #### [facility] [address] [place] [address] [address] Erasmo Smith INR GUIDELINES SEE BELOW Normal [facility] Comment on above: Result Comment: ABNER RED INR: 2.0 - 3.0 CONDITIONS NOT LISTED BELOW 2.5 - 3.5 FOR PROSTHETIC HEART VALVE REPLACEMENT 2.5 - 3.5 RECURRENT THROMBOSIS Performed By: #### P T, PTT #### [facility] [address] [place] [address] [address] Erasmo Smith PT Coag (PPP) [Time] 35.3 s Critically high 9.0-11.6 [facility] Comment on above: Performed By: #### P T, PTT #### [facility] [address] [place] [address] Dr. Erasmo Smith PTTon 2022 aPTT Coag (Bld) [Time] 40.3 s Critically high 22.3-36. 2 [facility] Comment on above: Performed By: #### P T, PTT #### [facility] [address] [place] [address] Dr. Erasmo Smith TROPONIN, HIGH SENSITIVITYon 2022 HSTROP 194.7 pg/mL Critically high 4.0-51.3 [facility] Comment on above: Result Comment: CUT- OFF POINTS HAVE BEEN ESTABLISHED BASED ON THE FOURTH UNIVERSAL DEFINITIONS OF MYOCARDIAL INFARCTION. THE UPPER REFERENCE LIMIT (URL) OF TROPONIN, DEFINED THE 99TH PERCENTILE OF cTnI DISTRIBUTION IN A REFERENCE POPULATION, HAS BEEN CONFIRMED THE DECISION THRESHOLD FOR GA DIAGNOSIS. Performed By: #### C MREP #### [facility] [address] [place] [address] Dr. Erasmo Smith HSTROP 218.0 pg/mL Critically high 4.0-51.3 [facility] Comment on above: Result Comment: CUT- OFF POINTS HAVE BEEN ESTABLISHED BASED ON THE FOURTH UNIVERSAL DEFINITIONS OF MYOCARDIAL INFARCTION. THE UPPER REFERENCE LIMIT (URL) OF TROPONIN, DEFINED THE 99TH PERCENTILE OF cTnI DISTRIBUTION IN A REFERENCE POPULATION, HAS BEEN CONFIRMED THE DECISION THRESHOLD FOR GA DIAGNOSIS. Performed By: #### B SCANNING CLERK #### [facility] [address] [place] [address] [address] Erasmo Smith XR CHEST 1 Von [...] by: HONG ALSTON Date: 2022 14:18 Normal [facility] MAMM SCREEN 3D TOÑITO CADon 11-26-2022 MG MAMM SCREEN 3D TOÑITO CAD Patient: BREANN STARKS Exam Date: 11/26/2022 : 1945 Gender:F Ordering : DR LUISANA JOHNSON . Admission #: [id number] Family : Order #: [id number] CLICK HERE TO VIEW EXAM RADIOLOGY REPORT [...] No Treatments None Family Cancers None LOCATION: [facility] BREAST COMPOSITION: Heterogeneously dense,which may obscure [...] Brown M.D. on 11/26/2022 at 14:13 Normal [facility] PROF 14(COMP METB)on 022 Albumin [Mass/Vol] 3.8 g/dL Normal 3.4-5.0 [facility] Comment on above: Performed By: #### C MREP #### [facility] [address] [place] [address] Dr. Erasmo Smith Albumin/Globulin [Mass ratio] 0.8 {ratio} Normal [facility] Comment on above: Performed By: #### C MREP #### [facility] [address] [place] [address] Dr. Erasmo Smith ALP [Catalytic activity/Vol] 102 U/L Normal 46-116 [facility] Comment on above: Performed By: #### C MREP #### [facility] [address] [place] [address] Dr. Erasmo Smith ALT [Catalytic activity/Vol] 47 U/L Normal 14-59 [facility] Comment on above: Performed By: #### C MREP #### [facility] [address] [place] [address] Dr. Erasmo Smith Anion gap [Moles/Vol] 12.5 mmol/L Normal [facility] Comment on above: Performed By: #### C MREP #### [facility] [address] [place] [address] Dr. Erasmo Smith AST [Catalytic activity/Vol] 36 U/L Normal 15-37 [facility] Comment on above: Performed By: #### C MREP #### [facility] [address] [place] [address] Dr. Erasmo Smith Bilirubin [Mass/Vol] 0.3 mg/dL Normal 0.2-1.0 [facility] Comment on above: Performed By: #### C MREP #### [facility] [address] [place] [address] Dr. Erasmo Smith Calcium [Mass/Vol] 8.9 mg/dL Normal 8.5-10.1 [facility] Comment on above: Performed By: #### C MREP #### [facility] [address] [place] [address] Dr. Erasmo Smith Chloride [Moles/Vol] 106 mmol/L Normal 98-107 [facility] Comment on above: Performed By: #### C MREP #### [facility] [address] [place] [address] Dr. Erasmo Smith CO2 [Moles/Vol] 26.9 mmol/L Normal 21.0-32.0 [facility] Comment on above: Performed By: #### C MREP #### [facility] [address] [place] [address] Dr. Erasmo Smith Creatinine [Mass/Vol] 0.79 mg/dL Normal 0.55-1.02 [facility] Comment on above: Performed By: #### C MREP #### [facility] [address] [place] [address] Dr. Erasmo Smith EGFR-AF GUATEMALAN >60 Normal >=60 [facility] Comment on above: Performed By: #### C MREP #### [facility] [address] [place] [address] Dr. Erasmo Smith EGFR-NON AF GUATEMALAN >60 Normal >=60 [facility] Comment on above: Performed By: #### C MREP #### [facility] [address] [place] [address] Dr. Erasmo Smith Globulin (S) [Mass/Vol] 4.6 g/dL Normal [facility] Comment on above: Performed By: #### C MREP #### [facility] [address] [place] [address] Dr. Erasmo Smith Glucose [Mass/Vol] 102 mg/dL Normal 74-106 [facility] Comment on above: Performed By: #### C MREP #### [facility] [address] [place], [place] [id number] Dr. Erasmo Smith Potassium [Moles/Vol] 4.4 mmol/L Normal 3.5-5.1 [facility] Comment on above: Performed By: #### C MREP #### [facility] [address] [place] [address] Dr. Erasmo Smith Protein [Mass/Vol] 8.4 g/dL Critically high 6.4-8.2 [facility] Comment on above: Performed By: #### C MREP #### [facility] [address] [place] [address] Dr. Erasmo Smith Sodium [Moles/Vol] 141 mmol/L Normal 136-145 [facility] Comment on above: Performed By: #### C MREP #### [facility] [address] [place] [address] Dr. Erasmo Smith Urea nitrogen [Mass/Vol] 28.0 mg/dL Critically high 7.0-18.0 [facility] Comment on above: Performed By: #### C MREP #### [facility] [address] [place] [address] Dr. Erasmo Smith Urea nitrogen/Creatinine [Mass ratio] 35.4 mg/mg Normal [facility] Comment on above: Performed By: #### C MREP #### [facility] [address] [place] [address] Dr. Erasmo Smith CBC AUTO DIFFon 07-12-2022 BASO # 0.1 103/ul Normal 0.0-0.1 [facility] Comment on above: Performed By: #### B SCANNING CLERK #### [facility] [address] [place] [address] Dr. Erasmo Smith Basophils/100 WBC (Bld) 0.5 % Normal 0.2-2.0 [facility] Comment on above: Performed By: #### B SCANNING CLERK #### [facility] [address] [place] [address] Dr. Erasmo Smith EO # 0.2 103/ul Normal 0.0-0.7 [facility] Comment on above: Performed By: #### B SCANNING CLERK #### [facility] [address] [place] [address] Dr. Erasmo Smith Eosinophils/100 WBC (Bld) 2.5 % Normal 0.9-7.0 [facility] Comment on above: Performed By: #### B SCANNING CLERK #### [facility] [address] [place] [address] Dr. Erasmo Smith Erythrocyte distribution width (RBC) [Ratio] 17.2 % Critically high 11.0-15.0 [facility] Comment on above: Performed By: #### B SCANNING CLERK #### [facility] [address] [place] [address] Dr. Erasmo Smith Hematocrit (Bld) [Volume fraction] 35.0 % Critically low 36.0-48.0 [facility] Comment on above: Performed By: #### B SCANNING CLERK #### [facility] [address] [place] [address] Dr. Erasmo Smith Hemoglobin (Bld) [Mass/Vol] 11.3 g/dL Critically low 12.0-16.0 [facility] Comment on above: Performed By: #### B SCANNING CLERK #### [facility] [address] [place] [address] Dr. Erasmo Smith IG # 0.02 10e3/ul Normal 0.00-0.03 [facility] Comment on above: Performed By: #### B SCANNING CLERK #### [facility] [address] [place] [address] Dr. Erasmo Smith IG % 0.2 % Normal 0.0-0.5 [facility] Comment on above: Performed By: #### B SCANNING CLERK #### [facility] [address] [place] [address] Dr. Erasmo Smith LYMPH # 2.3 103/ul Normal 1.2-3.8 [facility] Comment on above: Performed By: #### B SCANNING CLERK #### [facility] [address] [place] [address] Dr. Erasmo Smith Lymphocytes/100 WBC (Bld) 25.4 % Normal 20.5-60.0 [facility] Comment on above: Performed By: #### B SCANNING CLERK #### [facility] [address] [place] [address] Dr. Erasmo Smith MANUAL DIFF REQ NO Normal [facility] Comment on above: Performed By: #### B SCANNING CLERK #### [facility] [address] [place] [address] Dr. Erasmo Smith MCH (RBC) [Entitic mass] 25.5 pg Critically low 26.7-34.0 [facility] Comment on above: Performed By: #### B SCANNING CLERK #### [facility] [address] [place] [address] Dr. Erasmo Smith MCHC (RBC) [Mass/Vol] 32.3 g/dL Normal 29.9-35.2 [facility] Comment on above: Performed By: #### B SCANNING CLERK #### [facility] [address] [place] [address] Dr. Erasmo Smith MCV (RBC) [Entitic vol] 78.8 fL Critically low 81.0-99.0 [facility] Comment on above: Performed By: #### B SCANNING CLERK #### [facility] [address] [place] [address] Dr. Erasmo Smith MONO # 0.7 103/ul Normal 0.3-0.8 [facility] Comment on above: Performed By: #### B SCANNING CLERK #### [facility] [address] [place] [address] Dr. Erasmo Smith Monocytes/100 WBC (Bld) 7.5 % Normal 1.7-12.0 [facility] Comment on above: Performed By: #### B SCANNING CLERK #### [facility] [address] [place] [address] Dr. Erasmo Smith NEUT # 5.9 103/ul Normal 1.4-6.5 [facility] Comment on above: Performed By: #### B SCANNING CLERK #### [facility] [address] [place] [address] Dr. Erasmo Smith Neutrophils/100 WBC (Bld) 63.9 % Normal 43.0-75.0 [facility] Comment on above: Performed By: #### B SCANNING CLERK #### [facility] [address] [place] [address] Dr. Erasmo Smith Platelet mean volume (Bld) [Entitic vol] 9.0 fL Critically low 9.5-13.5 [facility] Comment on above: Performed By: #### B SCANNING CLERK #### [facility] [address] [place] [address] [address] Erasmo Smith PLT 305 103/ul Normal 150-450 [facility] Comment on above: Performed By: #### B SCANNING CLERK #### [facility] [address] [place] [address] [address] Erasmo Smith RBC 4.44 106/ul Normal 4.20-5.40 [facility] Comment on above: Performed By: #### B SCANNING CLERK #### [facility] [address] [place] [address] [address] Erasmo Smith WBC 9.2 103/ul Normal 4.0-11.0 [facility] Comment on above: Performed By: #### B SCANNING CLERK #### [facility] [address] [place] [address] CHEST WO CONon [...] by: PAULA BROWN Date: 2022-05-27 15:27 Normal [facility] HEMOGLOBINon 04-20-2022 Hemoglobin (Bld) [Mass/Vol] 10.6 g/dL Critically low 12.0-16.0 [facility] Comment on above: Performed By: #### H GB ####[facility] [address] [place] [address]Dr. Erasmo Smith CULTURE SPUTUMon 04-02-2022 CULTURE SPUTUM Isolate 1 Pseudomonas aeruginosa Light growth of ORGANISM 1 Pseudomonas aeruginosa ANTIBIOTIC M.I.C RX STATUS Piperacillin/Tazobac saez 8 S F Ceftazidime 2 S F Imipenem 1 S F Amikacin <=2 S F Gentamicin <=1 S F Tobramycin <=1 S F Ciprofloxacin <=0.25 S F Levofloxacin 0.25 S F Normal [facility] Comment on above: Performed By: #### S PUTCX ####[facility] [address] [place] [address]Dr. Erasmo Smith CYTOLOGYon 03-30-2022 SENT TO REF LAB 03/31/22 [facility] Comment on above: Performed By: #### C YTO #### [facility] [address] [place] [address] [address] Erasmo Smith SPUTUM GRAM STAINon 03-30-20 COMMENTS Normal [facility] Comment on above: Performed By: #### B SCANNING CLERK #### [facility] [address] [place] [address] [address] Erasmo Smith DIPHTHEROIDS Normal [facility] Comment on above: Performed By: #### B SCANNING CLERK #### [facility] [address] [place] [address] [address] Erasmo Smith EPITHELIALS <25 Normal [facility] Comment on above: Performed By: #### B SCANNING CLERK #### [facility] [address] [place] [address] [address] Erasmo Smith FUNGAL ELEMENTS [facility] Comment on above: Performed By: #### B SCANNING CLERK #### [facility] [address] [place] [address] [address] Erasmo Smith GRAM NEG BACILLI FEW [facility] Comment on above: Performed By: #### B SCANNING CLERK #### [facility] [address] [address] [address] Erasmo Smith GRAM NEG DIPPLOCOCCI Normal [facility] Comment on above: Performed By: #### B SCANNING CLERK #### [facility] [address] [address] [address] Erasmo Smith GRAM POS BACILLI Normal [facility] Comment on above: Performed By: #### B SCANNING CLERK #### [facility] [address] [address] [address] Erasmo Smith GRAM POSITIVE COCCI MANY Normal [facility] Comment on above: Performed By: #### B SCANNING CLERK #### [facility] [address] [address] [address] Erasmo Smith WBC (Bld) [#/Vol] 10*3/uL Normal [facility] Comment on above: Performed By: #### B SCANNING CLERK #### [facility] [address] [address] [address] Erasmo Smith SPUTUM CULTUREon 03-01-2022 Epithelial cells LM Ql (Urine sed) Few Normal [facility] Comment on above: Performed By: #### C XSPTUM ####[facility] [address] [place], [place] [address]Dr. Erasmo Smith Gram Stain Evaluation Comment Normal [facility] Comment on above: Result Comment: This specimen is of good quality and is acceptable for routine bacterial culture. Performed By: #### C XSPTUM ####[facility] [address] [place] [id number]. Erasmo Smith Lower Respiratory Culture Final report Normal [facility] Comment on above: Performed By: #### C XSPTUM ####[facility] [address] [place] [id number]. Erasmo Smith Result 1 Comment Normal [facility] Comment on above: Result Comment: Few gram positive cocci Performed By: #### C XSPTUM ####[facility] [address] [place] [id number]. Erasmo Smith Result Comment: Rout ine respiratory adria Result 2 Normal [facility] Comment on above: Performed By: #### C XSPTUM ####[facility] [address] [place] [address]Dr. Erasmo Smith Result 3 Normal [facility] Comment on above: Performed By: #### C XSPTUM ####[facility] [address] [place] [address]Dr. Erasmo Smith Result 4 Normal [facility] Comment on above: Performed By: #### C XSPTUM ####[facility] [address] [place] [address]Dr. Erasmo Smith White Blood Cells Few Normal [facility] Comment on above: Performed By: #### C XSPTUM ####[facility] [address] [place] [address]DrMeena Smith BNPon 02-24-2022 Natriuretic peptide B (Bld) [Mass/Vol] 319.0 pg/mL Normal <=900.0 [facility] Comment on above: Performed By: #### B SCANNING CLERK #### [facility] [address] [place] [address] Dr. Erasmo Smith CBC AUTO DIFFon 02-24-2022 BASO # 0.1 103/ul Normal 0.0-0.1 [facility] Comment on above: Performed By: #### C MREP #### [facility] [address] [place] [address] Dr. Erasmo Smith Basophils/100 WBC (Bld) 0.5 % Normal 0.2-2.0 [facility] Comment on above: Performed By: #### C MREP #### [facility] [address] [address] [address] Erasmo Smith EO # 0.3 103/ul Normal 0.0-0.7 [facility] Comment on above: Performed By: #### C MREP #### [facility] [address] [place] [address] Dr. Erasmo Smith Eosinophils/100 WBC (Bld) 3.1 % Normal 0.9-7.0 [facility] Comment on above: Performed By: #### C MREP #### [facility] [address] [place] [address] Dr. Erasmo Smith Erythrocyte distribution width (RBC) [Ratio] 15.1 % Critically high 11.0-15.0 [facility] Comment on above: Performed By: #### C MREP #### [facility] [address] [place] [address] Dr. Erasmo Smith Hematocrit (Bld) [Volume fraction] 33.9 % Critically low 36.0-48.0 [facility] Comment on above: Performed By: #### C MREP #### [facility] [address] [place] [address] Dr. Erasmo Smith Hemoglobin (Bld) [Mass/Vol] 10.7 g/dL Critically low 12.0-16.0 [facility] Comment on above: Performed By: #### C MREP #### [facility] [address] [place] [address] Dr. Erasmo Smith IG # 0.03 10e3/ul Normal 0.00-0.03 [facility] Comment on above: Performed By: #### C MREP #### [facility] [address] [place] [address] Dr. Erasmo Smith IG % 0.3 % Normal 0.0-0.5 [facility] Comment on above: Performed By: #### C MREP #### [facility] [address] [place] [address] Dr. Erasmo Smith LYMPH # 2.8 103/ul Normal 1.2-3.8 [facility] Comment on above: Performed By: #### C MREP #### [facility] [address] [place] [address] Dr. Erasmo Smith Lymphocytes/100 WBC (Bld) 30.6 % Normal 20.5-60.0 [facility] Comment on above: Performed By: #### C MREP #### [facility] [address] [place] [address] Dr. Erasmo Smith MANUAL DIFF REQ NO Normal [facility] Comment on above: Performed By: #### C MREP #### [facility] [address] [address] [address] Erasmo Smith MCH (RBC) [Entitic mass] 26.9 pg Normal 26.7-34.0 [facility] Comment on above: Performed By: #### C MREP #### [facility] [address] [place] [address] Dr. Erasmo Smith MCHC (RBC) [Mass/Vol] 31.6 g/dL Normal 29.9-35.2 [facility] Comment on above: Performed By: #### C MREP #### [facility] [address] [place] [address] Dr. Erasmo Smith MCV (RBC) [Entitic vol] 85.2 fL Normal 81.0-99.0 [facility] Comment on above: Performed By: #### C MREP #### [facility] [address] [place] [address] Dr. Erasmo Smith MONO # 0.7 103/ul Normal 0.3-0.8 [facility] Comment on above: Performed By: #### C MREP #### [facility] [address] [place] [address] Dr. Erasmo Smith Monocytes/100 WBC (Bld) 7.9 % Normal 1.7-12.0 [facility] Comment on above: Performed By: #### C MREP #### [facility] [address] [place] [address] Dr. Erasmo Smith NEUT # 5.3 103/ul Normal 1.4-6.5 [facility] Comment on above: Performed By: #### C MREP #### [facility] [address] [place] [address] Dr. Erasmo Smith Neutrophils/100 WBC (Bld) 57.6 % Normal 43.0-75.0 [facility] Comment on above: Performed By: #### C MREP #### [facility] [address] [place] [address] Dr. Erasmo Smith Platelet mean volume (Bld) [Entitic vol] 9.0 fL Critically low 9.5-13.5 [facility] Comment on above: Performed By: #### C MREP #### [facility] [address] [place], [place] [address] Dr. Erasmo Smith PLT 249 103/ul Normal 150-450 [facility] Comment on above: Performed By: #### C MREP #### [facility] [address], [place] [address] Dr. Erasmo Smith RBC 3.98 106/ul Critically low 4.20-5.40 [facility] Comment on above: Performed By: #### C MREP #### [facility] [address], [place] [address] Dr. Erasmo Smith WBC 9.1 103/ul Normal 4.0-11.0 [facility] Comment on above: Performed By: #### C MREP #### [facility] [address] [place], [place] [address] Dr. Erasmo Smith CTA CHEST WO W [...] to document clearing. Electronically authenticated by: PAULA STEPHANIE Date: 2022-02-24 18:24 Normal [facility] D-DIMERon 02-24-2022 D-DIMER 1.36 mg/L FEU Critically high <=0.59 [facility] Comment on above: Performed By: #### D DIM #### [facility] [address] [place] [address] Dr. Erasmo Smith D-DIMER COMMENTS SEE BELOW Normal [facility] Comment on above: Result Comment: Incr [...] hospitalization. Performed By: #### D DIM #### [facility] [address] [place] [address] Dr. Erasmo Smith PROF 14(COMP METB)on 022 Albumin [Mass/Vol] 3.6 g/dL Normal 3.4-5.0 [facility] Comment on above: Performed By: #### C MREP #### [facility] [address] [place] [address] Dr. Erasmo Smith Albumin/Globulin [Mass ratio] 0.8 {ratio} Normal [facility] Comment on above: Performed By: #### C MREP #### [facility] [address] [place] [address] Dr. Erasmo Smith ALP [Catalytic activity/Vol] 95 U/L Normal 46-116 [facility] Comment on above: Performed By: #### C MREP #### [facility] [address] [place] [address] Dr. Erasmo Smith ALT [Catalytic activity/Vol] 45 U/L Normal 14-59 [facility] Comment on above: Performed By: #### C MREP #### [facility] [address] [address] [address] Erasmo Smith Anion gap [Moles/Vol] 15.9 mmol/L Normal [facility] Comment on above: Performed By: #### C MREP #### [facility] [address] [place] [address] Dr. Erasmo Smith AST [Catalytic activity/Vol] 33 U/L Normal 15-37 [facility] Comment on above: Performed By: #### C MREP #### [facility] [address] [place] [address] Dr. Erasmo Smith Bilirubin [Mass/Vol] 0.5 mg/dL Normal 0.2-1.0 [facility] Comment on above: Performed By: #### C MREP #### [facility] [address] [place] [address] Dr. Erasmo Smith Calcium [Mass/Vol] 9.1 mg/dL Normal 8.5-10.1 [facility] Comment on above: Performed By: #### C MREP #### [facility] [address] [place] [address] Dr. Erasmo Smith Chloride [Moles/Vol] 103 mmol/L Normal 98-107 [facility] Comment on above: Performed By: #### C MREP #### [facility] [address] [place] [address] Dr. Erasmo Smith CO2 [Moles/Vol] 25.1 mmol/L Normal 21.0-32.0 [facility] Comment on above: Performed By: #### C MREP #### [facility] [address] [place] [address] Dr. Erasmo Smith Creatinine [Mass/Vol] 0.77 mg/dL Normal 0.55-1.02 [facility] Comment on above: Performed By: #### C MREP #### [facility] [address] [place] [address] Dr. Erasmo Smith EGFR-AF GUATEMALAN >60 Normal >=60 [facility] Comment on above: Performed By: #### C MREP #### [facility] [address] [place] [address] Dr. Erasmo Smith EGFR-NON AF GUATEMALAN >60 Normal >=60 [facility] Comment on above: Performed By: #### C MREP #### [facility] [address] [place] [address] Dr. Erasmo Smith Globulin (S) [Mass/Vol] 4.3 g/dL Normal [facility] Comment on above: Performed By: #### C MREP #### [facility] [address] [address] [address] Erasmo Smith Glucose [Mass/Vol] 92 mg/dL Normal 74-106 [facility] Comment on above: Performed By: #### C MREP #### [facility] [address] [place] [address] Dr. Erasmo Smith Potassium [Moles/Vol] 4.0 mmol/L Normal 3.5-5.1 [facility] Comment on above: Performed By: #### C MREP #### [facility] [address] [place] [address] Dr. Erasmo Smith Protein [Mass/Vol] 7.9 g/dL Normal 6.4-8.2 [facility] Comment on above: Performed By: #### C MREP #### [facility] [address] [place] [address] Dr. Erasmo Smith Sodium [Moles/Vol] 140 mmol/L Normal 136-145 [facility] Comment on above: Performed By: #### C MREP #### [facility] [address] [place] [address] Dr. Erasmo Smith Urea nitrogen [Mass/Vol] 17.0 mg/dL Normal 7.0-18.0 [facility] Comment on above: Performed By: #### C MREP #### [facility] [address] [place] [address] Dr. Erasmo Smith Urea nitrogen/Creatinine [Mass ratio] 22.1 mg/mg Normal [facility] Comment on above: Performed By: #### C MREP #### [facility] [address] [place] [address] Dr. Erasmo Smith PROTIMEon 02-24-2022 INR Coag (PPP) [Relative time] 2.28 {INR} Normal [facility] Comment on above: Performed By: #### P T, PTT ####[facility] [id number] [id number]. Erasmo Smith INR GUIDELINES SEE BELOW Normal [facility] Comment on above: Result Comment: ABNER RED INR: 2.0 - 3.0 CONDITIONS NOT LISTED BELOW 2.5 - 3.5 FOR PROSTHETIC HEART VALVE REPLACEMENT 2.5 - 3.5 RECURRENT THROMBOSIS Performed By: #### P T, PTT ####[facility] [id number] [id number]. Erasmo Smith PT Coag (PPP) [Time] 23.3 s Critically high 9.0-11.6 [facility] Comment on above: Performed By: #### P T, PTT ####[facility] [id number] [id number]. Erasmo Smith PTTon 02-24-2022 aPTT Coag (Bld) [Time] 34.7 s Normal 22.3-36.2 [facility] Comment on above: Performed By: #### P T, PTT ####[facility] [address] [address]DrMeena Smith TROPONIN, HIGH SENSITIVITYon 02-24-2022 HSTROP 6.6 pg/mL Normal 4.0-51.3 [facility] Comment on above: Result Comment: CUT- OFF POINTS HAVE BEEN ESTABLISHED BASED ON THE FOURTH UNIVERSAL DEFINITIONS OF MYOCARDIAL INFARCTION. THE UPPER REFERENCE LIMIT (URL) OF TROPONIN, DEFINED THE 99TH PERCENTILE OF cTnI DISTRIBUTION IN A REFERENCE POPULATION, HAS BEEN CONFIRMED THE DECISION THRESHOLD FOR GA DIAGNOSIS. Performed By: #### C MREP #### [facility] [address], [place] [address] Dr. Erasmo Smith PROTHROMBIN TIMEon 2 INR Coag (PPP) [Relative time] 1.2 {INR} High 0.86-1.16 [facility] Comment on above: Result Comment: INR Theraputic Range: 2.0-3.5 Performed at [address] [address] PT Coag (PPP) [Time] 12.7 s Normal 9.3-12.7 [facility] ANTICOAGULANT COUMADIN Normal [facility] Vital Signs Date Time Vital Sign Value Performing Clinician Facility 07-05-2024 08:50-0400 Body height 149.9 cm Renny Hansen MD Work Phone: [facility] 07-05-2024 08:50-0400 Body mass index (BMI) [Ratio] 46.66 kg/m2 Renny Hansen MD Work Phone: [facility] 07-05-2024 08:50-0400 Body weight 104.78 kg Renny Hansen MD Work Phone: [facility] 07-05-2024 08:50-0400 Diastolic blood pressure 74 mm[Hg] Renny Hansen MD Work Phone: [facility] 07-05-2024 08:50-0400 Heart rate 69 /min Renny Hansen MD Work Phone: [facility] 07-05-2024 08:50-0400 SaO2% (BldA) [Mass fraction] 96 % Renny Hansen MD Work Phone: [facility] 07-05-2024 08:50-0400 Systolic blood pressure 130 mm[Hg] Renny Hansen MD Work Phone: [facility] 05-22-2024 13:17-0400 Body height 149.9 cm Boo Buchanan PA-C Work Phone: [facility] 05-22-2024 13:17-0400 Body mass index (BMI) [Ratio] 44.43 kg/m2 Boo Buchanan PA-C Work Phone: [facility] 05-22-2024 13:17-0400 Body weight 99.79 kg Boo Buchanan PA-C Work Phone: [facility] 03-02-2024 11:51-0400 Blood Pressure Location Ortega PARKMariah [facility] [place] 03-02-2024 11:51-0400 Diastolic blood pressure 75 mm[Hg] Ortega NILL [facility] [place] 03-02-2024 11:51-0400 Heart rate 71 /min Ortega NILL [facility] [place] 03-02-2024 11:51-0400 Respiratory rate 16 /min Ortega NILL [facility] [place] 03-02-2024 11:51-0400 Systolic blood pressure 118 mm[Hg] Ortega NILL [facility] [place] 10-07-2021 16:00-0500 Body height 146.69 cm Hong Nevarez Other [facility] Other 10-07-2021 16:00-0500 Body mass index (BMI) [Ratio] 51.01 kg/m2 Hong Nevarez Other [facility] Other 10-07-2021 16:00-0500 Body weight 109.77 kg Hong Nevarez Other [facility] Other 08-26-2021 15:15-0500 Body height 146.69 cm Hong Nevarez Other [facility] Other 08-26-2021 15:15-0500 Body mass index (BMI) [Ratio] 51.07 kg/m2 Hong eNvarez Other [facility] Other 08-26-2021 15:15-0500 Body weight 109.91 kg Hong Nevarez Other [facility] Other Encounters Encounter Date Encounter Type Care Provider Facility Start: 07-19-2024 End: 07-19-2024 ambulatory SHAIKH CIRA Not Available Start: 07-18-2024 End: 07-18-2024 [facility] Start: 07-16-2024 End: 07-16-2024 Refill Monster Calvillo SCANNING CLERK Work Phone: [facility] Comment on above: Essential hypertensi on (CMS/HCC) Start: 07-05-2024 End: 07-05-2024 Bamboo flowsheet Renny Hansen MD Work Phone: [facility] Start: 07-05-2024 End: 07-05-2024 Bamboo flowsheet Renny Hansen MD Work Phone: [facility] Start: 07-05-2024 End: 07-05-2024 Office outpatient visit 40 minutes Renny Hansen MD Work Phone: [facility] Comment on above: Persistent atrial fi brillation (HCC) (CMS/[facility]ER[facility]) (Primary Dx); Breast screening; Acute non-recurrent sinusitis, unspecified location; Neck pain on left side; Radicular pain in left arm; Abnormal CT scan, neck; Degenerative disc disease, cervical; Axillary lymphadenopathy; 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; Sigmoid diverticulosis; Irritable bowel syndrome, unspecified type Start: 07-05-2024 End: 07-05-2024 ambulatory RENNY HANSEN Not Available Start: 06-19-2024 End: 06-19-2024 ambulatory [facility] Start: 06-18-2024 End: 06-18-2024 Refill Monster Calvillo SCANNING CLERK Work Phone: [facility] Comment on above: Acute on chronic nisa stolic (congestive) heart failure (CMS/HCC) Start: 05-31-2024 End: 05-31-2024 ambulatory MONSTER CALVILLO [...] encounter procedure MD Shaikh Denis Work Phone: [facility] [place] Work Phone: Start: 05-02-2024 End: 05-02-2024 ambulatory MD Shaikh Denis Work Phone: [facility] Work Phone: Start: 04-16-2024 End: 04-16-2024 ambulatory PEDRO PABLO CRUZ Not Available Start: 04-16-2024 End: 04-16-2024 ambulatory Miguel Murphy MD Facility:[facility] Start: 04-11-2024 End: 04-11-2024 ambulatory SHAIKH CIRA Not Available Start: 04-10-2024 End: 04-10-2024 Patient encounter procedure MD Shaikh Denis Work Phone: [facility] [place] Work Phone: Start: 04-10-2024 End: 04-10-2024 ambulatory MD Shaikh Denis Work Phone: [facility] Work Phone: Start: 04-02-2024 End: 04-02-2024 ambulatory Miguel Murphy MD Facility:[facility] Start: 03-29-2024 End: 03-29-2024 Patient encounter procedure MD Shaikh Denis Work Phone: [facility]Pacemaker Check Start: 03-29-2024 End: 03-29-2024 ambulatory MD Shaikh Denis Work Phone: [facility] Work Phone: Start: 03-12-2024 End: 03-12-2024 ambulatory SHAIKH CIRA Not Available Start: 03-07-2024 End: 03-07-2024 ambulatory Ortega ALEXANDER Facility::[id number] Start: 03-02-2024 End: 03-02-2024 ambulatory Ortega R NILL Facility: [place] Start: 03-02-2024 End: 03-02-2024 Patient encounter procedure Ortega ALEXANDER [facility] [place] Start: 03-01-2024 ambulatory Ortega ALEXANDER Facility:[facility] Start: 02-27-2024 End: 02-27-2024 ambulatory SHAIKH CIRA Not Available Start: 01-17-2024 End: 01-17-2024 ambulatory [facility] Start: 12-29-2023 End: 12-29-2023 ambulatory SHAIKH CIRA Not Available Start: 12-27-2023 End: 12-27-2023 ambulatory YANCY [facility] Start: 12-26-2023 End: 12-26-2023 ambulatory Miguel Murphy MD Facility:[facility] Start: 12-05-2023 End: 12-05-2023 ambulatory Miguel Murphy MD Facility:[facility] Start: 11-16-2023 End: 11-16-2023 ambulatory Shaikh Cira Facility:[facility] Start: 11-07-2023 End: 11-07-2023 ambulatory SHAIKH CIRA Not Available Start: 10-17-2023 Cristobal Denis MD Work Phone: [facility] Start: 10-17-2023 Bamboo flowsheet Shaikh Cira CUBA Work Phone: [facility] Start: 10-17-2023 End: 10-17-2023 ambulatory SHAIKH CIRA Not Available Start: 10-11-2023 End: 10-11-2023 ambulatory MD Shaikh Denis Work Phone: [facility] Work Phone: Start: 10-11-2023 End: 10-11-2023 Patient encounter procedure MD Shaikh Denis Work Phone: [facility] [place] Work Phone: Start: 09-08-2023 End: 09-08-2023 Patient encounter procedure MD Shaikh Denis Work Phone: [facility]Pac[facility] Check Start: 09-08-2023 End: 09-08-2023 ambulatory MD Shaikh Denis Work Phone: [facility] Work Phone: Start: 09-06-2023 End: 09-06-2023 ambulatory SHAIKH CIRA Not Available Start: 09-06-2023 Patient encounter procedure Shaikh Cira CUBA Work Phone: [facility] Start: 01-31-2023 End: 02-01-2023 ambulatory ANDRIUS GIEDRAITIS [...] . Facility:[facility] Start: 11-10-2022 End: 12-10-2022 ambulatory SAHU H FASILVANA Facility:[facility] Start: 10-13-2022 End: 11-10-2022 ambulatory SAHU H KATARZYNAWAAlysa Facility:[facility] Start: 09-13-2022 End: 10-13-[address] LUISANA JOHNSON . Facility:[facility] Start: 08-12-2022 End: 09-12-[address] LUISANA JOHNSON . Facility:[facility] Start: 07-13-2022 End: 07-14-2022 ambulatory LUIZ SAM . Facility:[facility] Start: 07-13-2022 End: 07-14-[address] LUISANA JOHNSON . Facility:[facility] Start: 07-13-2022 End: 08-11-2022 ambulatory SAHU H CIRA Facility:[facility] Start: 07-12-2022 End: 07-13-[address] LUISANA JOHNSON . Facility:[facility] Start: 06-13-2022 End: 07-12-2022 ambulatory SAHU H FAWWAD Facility:[facility] Start: 05-27-2022 End: 05-28-2022 ambulatory LUIZ SAMSA . Facility:[facility] Start: 05-19-2022 End: 05-20-2022 ambulatory LUIZ SAMSA . Facility:[facility] Start: 05-13-2022 End: 06-12-2022 ambulatory SAHU H FAWWAD Facility:[facility] Start: 04-20-2022 End: 04-21-2022 ambulatory LUIZ SAMSA . Facility:[facility] Start: 04-12-2022 End: 05-12-2022 ambulatory SAHU H KATARZYNAWAAlysa Facility:[facility] Start: 03-30-2022 End: 03-30-[address] LUISANA JOHNSON . Facility:[facility] Start: 03-12-2022 End: 04-09-2022 ambulatory H CIRA Facility:[facility] Start: 02-25-2022 End: 02-25-[address] LUISANA JOHNSON . Facility:[facility] Start: 02-24-2022 End: 02-25-[address] LUISANA JOHNSON . Facility:[facility] Start: 10-07-2021 End: 10-07-2021 ambulatory Hong Nevarez Other [facility] Other Start: 10-07-2021 Office outpatient visit 15 minutes Hong Nevarez [facility] Start: 08-26-2021 End: 08-26-2021 ambulatory Hong Nevarez Other [facility] Other Start: 08-26-2021 Office outpatient ne w 45 minutes Hong Nevarez [facility] Start: 10-11-2020 End: 10-13-2020 Evaluation and management of inpatient ZANE MAYNOR Facility:[facility] Procedures Date Procedure Procedure Detail Performing [...] object) Ortega ALEXANDER Comment on above: Dr. Martinez Start: 10-13-2020 INSERT PACE. DUAL CH AM IN CHEST SUBCU/FASCIA, OPEN YANCY HENNESSY Start: 10-13-2020 INSERTION OF PACEMAK ER LEAD INTO R VENTRICLE, PERC APPROACH YANCY HENNESSY Start: 10-13-2020 INSERTION OF PACEMAK ER LEAD INTO RIGHT ATRIUM, PERC APPROACH YANCY HENNESSY Start: 09-12-2017 Colonoscopy Shaikh Katarzyna eid MD Work Phone: Start: 09-12-2003 History [...] on above: 12/21/ mild CAD Colonoscopy [facility]ga [employer] Comment on above: 2012 repeat 10 years Ligation of fallopian tube Nathan ALEXANDER Repair of musculoten dinous cuff of shoulder Ortega [employer] Comment on above: right Total abdominal hyst erectomy with bilateral salpingo-oophorectomy [employer]ga [employer] Plan of Treatment Date Care Activity Detail Author Start: 09-12-2027 Screening for malign ant neoplasm of colon [facility] Start: 09-14-2024 End: 09-14-2024 Patient encounter procedure 09/14/2024 10:00 AM EST Office Visit [facility] [address] [place] [address] Renny Hansen MD [address] [facility] [address] [place] [address] [facility] Start: 09-06-2024 Medicare Annual Well ness (AWV) Medicare Annual Wellness (AWV) [facility] Start: 07-19-2024 End: 07-19-2024 Patient encounter procedure 07/19/2024 12:00 PM EST Procedure Visit [facility] [address] [place] [address] [facility] Start: 07-05-2024 End: 07-05-2025 EMG AND NERVE CONDUCTION STUDY EMG AND NERVE CONDUCTION STUDY Neurology Routine Neck pain on left side Radicular pain in left arm Expected: 07/05/2024 (Approximate), Expires: 07/05/[address] [facility] Comment on above: Expected: 07/05/2024 (Approximate), Expires: 07/05/2025 Start: 07-05-2024 End: 09-04-2025 MG Breast - bilateral Screening Bilateral screening mammogram Imaging Routine Breast screening Expected: 07/05/2024 (Approximate), Expires: 09/04/2025 [facility] Work Phone: Comment on above: Expected: 07/05/2024 (Approximate), Expires: 09/04/2025 Start: 07-05-2024 End: 07-05-2024 Patient encounter procedure [facility] Comment on above: Arrived Start: 05-22-2024 End: 08-21-2024 C reactive protein [...] 11/07/2023 2:30 PM EST Office Visit [facility] [address] [place] [id number] Shaikh Denis MD [address] [place] [id number] [facility] Start: 10-17-2023 End: 10-17-2023 Patient encounter procedure 10/17/2023 10:15 AM EST Office Visit [facility] [address] [place] [address] Shaikh Denis MD [address] [place] [phone] Arrived [facility] Comment on above: Arrived Start: 09-12-2023 [...] 11-30-1963 Hepatitis C [facility] Start: 1945 Screening for malign ant neoplasm of colon 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 08-25-2023 RSV, recombinant, protein subunit RSVpreF, adjuvant reconstitu, 120mcg/0.5mL, PF (Arexvy) Monster Calvillo SCANNING CLERK Work Phone: [facility] 07-08-2022 influenza virus vaccine, unspecified formulation Ortega NILL [facility] 07-08-2022 Influenza, Seasonal, Quadrivalent, Adjuvanted Monster Calvillo SCANNING CLERK Work Phone: [facility] 08-20-2021 influenza virus vaccine, unspecified formulation Ortega NILL [facility] 08-20-2021 Influenza, Seasonal, Quadrivalent, Adjuvanted Monster Calvillo SCANNING CLERK Work Phone: [facility] 08-20-2021 pneumococcal polysaccharide vaccine, 23 valent Ortega NILL [facility] 11-18-2020 SARS-CoV-2 (COVID-19 ) mRNA-1273 vaccine Ortega NILL [facility] 10-20-2020 SARS-CoV-2 (COVID-19 ) mRNA-1273 vaccine Ortega NILL [facility] 08-04-2020 influenza virus vaccine, unspecified formulation Ortega NILL [facility] 08-04-2020 Influenza, Seasonal, Quadrivalent, Adjuvanted Monster Calvillo SCANNING CLERK Work Phone: [facility] 08-04-2020 pneumococcal conjuga te vaccine, 13 valent Ortega NILL [facility] 08-06-2019 influenza virus vaccine, unspecified formulation Ortega NILL [facility] 08-06-2019 influenza, high dose seasonal, preservative-free Monster Calvillo SCANNING CLERK Work Phone: [facility] 07-05-2017 influenza virus vaccine, unspecified formulation Ortega NILL [facility] 07-05-2017 pneumococcal conjuga te vaccine, 13 valent Ortega NILL [facility] 07-05-2017 Seasonal trivalent influenza vaccine, adjuvanted, preservative free Monster Calvillo SCANNING CLERK Work Phone: [facility] 06-29-2016 influenza virus vaccine, unspecified formulation Ortega NILL [facility] 06-29-2016 Seasonal trivalent influenza vaccine, adjuvanted, preservative free Monster Calvillo SCANNING CLERK Work Phone: [facility] 06-25-2015 influenza virus vaccine, unspecified formulation Ortega NILL [facility] 06-25-2015 influenza, injectabl e, quadrivalent, contains preservative Monster Calvillo SCANNING CLERK Work Phone: [facility] 06-12-2015 influenza virus vaccine, unspecified formulation Ortega NILL [facility] 06-12-2015 seasonal influenza, intradermal, preservative free Monster Calvillo SCANNING CLERK Work Phone: [facility] 07-12-2014 influenza virus vaccine, unspecified formulation Rotega NILL [facility] 07-12-2014 influenza, injectabl e, quadrivalent, contains preservative Monster Calvillo SCANNING CLERK Work Phone: [facility] 08-07-2013 influenza virus vaccine, unspecified formulation Ortega NILL [facility] 08-07-2013 influenza, seasonal, injectable Monster Calvillo NP Work Phone: [facility] Payers Date Payer Category Payer Medicaid AETNA MEDICARE A DVANTAGE [id number] 2023 Private Health Insurance 2023 Private Health Insurance [facility] [id number] 2023 Self-pay [id number] 2023 Managed Care HMO (unspecified) AETNA AETNA [id number] 2023-Present [address] [place] [address] HMO [id number] 2007 Medicare [id number]. [id number] 1959 Medicare [id number] 1959 Private Health Insurance [facility] [id number] 1947 Unknown [id number] 2.16.840.1.684896.3.579.2. 647 1947 Unknown [id number] 2.16.840.1.671058.3.579.2. 593 1947 Unknown [id number] 2.16.840.1.640348.3.579.2. 593 1947 Unknown [id number] 2.16.840.1.188173.3.579.2. 593 1947 Unknown [id number] 2.16.840.1.082383.3.579.2. 593 1947 Unknown [id number] 2.16.840.1.148451.3.579.2. 593 1947 Unknown [id number] 2.16.840.1.471908.3.579.2. 593 1947 Unknown [id number] 2.16.840.1.342108.3.579.2. 593 1947 Unknown [id number] 2.16.840.1.094310.3.579.2. 593 1947 Unknown [id number] 2.16.840.1.698901.3.579.2. 593 1947 Unknown [id number] 2.16.840.1.139778.3.579.2. 593 1947 Unknown [id number] 2.16.840.1.659834.3.579.2. 593 1947 Unknown [id number] 2.16.840.1.165735.3.579.2. 593 1947 Unknown [id number] 2.16.840.1.649936.3.579.2. 593 1947 Unknown [id number] 2.16.840.1.323027.3.579.2. 593 1947 Unknown [id number] 2.16.840.1.072126.3.579.2. 593 1947 Unknown [id number] 2.16.840.1.015466.3.579.2. 593 1947 Unknown [id number] 2.16.840.1.943336.3.579.2. 593 1947 Unknown [id number] 2.16.840.1.949933.3.579.2. 593 1947 Unknown [id number] 2.16.840.1.662628.3.579.2. 593 1947 Unknown [id number] 2.16.840.1.978061.3.579.2. 593 1947 Unknown [id number] 2.16.840.1.514303.3.579.2. 593 1947 Unknown [id number] 2.16.840.1.683289.3.579.2. 593 1947 Unknown [id number] 2.16.840.1.695813.3.579.2. 593 1947 Unknown [id number] 2.16.840.1.139604.3.579.2. 593 1947 Unknown [id number] 2.16.840.1.667240.3.579.2. 593 1947 Unknown [id number] 2.16.840.1.974871.3.579.2. 593 1947 Unknown [id number] 2.16.840.1.370839.3.579.2. 727 1947 Unknown [id number] 2.16.840.1.683258.3.579.2. 727 1947 Unknown [id number] 2.16.840.1.240561.3.579.2. 196 1947 Unknown [id number] 2.16.840.1.424796.3.579.2. 196 1947 Unknown [id number] 2.16.840.1.262440.3.579.2. 196 1947 Unknown [id number] 2.16.840.1.577977.3.579.2. 196 1947 Unknown [id number] 2.16.840.1.138635.3.579.2. 1259 1947 Unknown [id number] 2.16.840.1.760052.3.579.2. 1258 1947 Unknown [id number] 2.16.840.1.726455.3.579.2. 1259 1947 Unknown [id number] 2.16.840.1.680734.3.579.2. 125 1947 Unknown [id number] 2.16.840.1.761973.3.579.2. 125 1947 Unknown [id number] 2.16.840.1.535368.3.579.2. 1258 1947 Unknown [id number] 2.16.840.1.054870.3.579.2. 1258 1947 Unknown [id number] 2.16.840.1.271757.3.579.2. 1258 1947 Unknown [id number] 2.16.840.1.899785.3.579.2. 1258 1947 Unknown [id number] 2.16.840.1.980818.3.579.2. 1258 1947 Unknown [id number] 2.16840.1.328319.3.579.2. 1258 1947 Unknown [id number] 2.16840.1.433439.3.579.2. 125 1947 Unknown [id number] 2.16.840.1.096993.3.579.2. 125 1947 Unknown [id number] 2.16840.1.073058.3.579.2. 1259 Medicare Medicare Outpatient [id number] 1A [id number] Unknown [place] [id number] Unknown [id number] 2.16840.1.578728.3.579.2. 531 Unknown [id number] 2.16840.1.496458.3.579.2. 531 Unknown [id number] 2.16840.1.889574.3.579.2. 531 Unknown [id number] 2.840.1.807648.3.579.2. 531 Unknown [id number] 2.840.1.407231.3.579.2. 531 Unknown [id number] 2.840.1.879734.3.579.2. 531 Social History Date Type Detail Facility Start: 08-30-2023 End: 05-31-2024 Sex Assigned At [facility] Start: 1945 Sex Assigned At Female [facility] Start: 08-18-2023 End: 12-29-2023 Tobacco smoking status [facility] Ex-smoker [facility] History of tobacco use Current smoker [facility] History of tobacco use Cigarette Smoker [facility] Start: 09-02-2023 Alcohol intake Not Asked [facility] Start: 08-30-2023 End: 05-31-2024 History of Social function [facility] Within the last year , have you been afraid of your partner or ex-partner? No [facility] How often do you att end taoism or zoroastrian services? Patient refused [facility] Do you belong to any clubs or organizations such as taoism groups, unions, fraternal or athletic groups, or [...] smoking status NHIS Never smoked tobacco (finding) [facility] Start: 05-22-2024 Tobacco use and exposure Smokeless tobacco non-user [facility] Start: 05-22-2024 End: 07-05-2024 Alcoholic beverage intake Current drinker of alcohol (finding) [facility] History of tobacco use Passive smoker [facility] Start: 11-07-2023 Alcohol Comment OCCASSIONAL [facility] Functional Status Date Assessment Result Facility 03-02-2024 Functional Status N/A [facility] [place] Clinical Notes 08-26-2021 to 07-18-2024 Renny Hansen MD - 07/05/2024 9:00 AM Boo Monroe PA-C - 05/22/2024 1:39 PM EDJyothi Martell RT(R) - 05/22/2024 1:25 PM EDT Note Date & Type Note Facility 07-18-2024 Note [facility] Subjective Breann Starks is a 78 y.o. year old female patient being seen for Atrial Fibrillation, PACEMAKER, Coronary Artery Disease, Hypertension, Sinus node dysfunction (HAS BOSTON PACER), Obesity, and Edema Patient Active Problem List Diagnosis Disorder of bursae of shoulder region Chronic obstructive lung disease (CMS/HCC) Atherosclerosis of sycuan coronary artery of sycuan heart without angina pectoris Diaphragmatic hernia Edema [...] subsequent Cardiac pacemaker in situ Diastolic dysfunction HPI The patient is with history of atrial fibrillation, sick sinus syndrome, status post permanent pacemaker October 2020, mild coronary artery disease, obstructive sleep apnea and obesity The patient is here today for follow-up visit. She states that she is doing well. The patient is not physically very active but she is able to do her daily activities at the house without chest pain or shortness of breath. She admits occasional lightheadedness when she exerts herself but no syncope or near syncope. She denies any palpitations. She states that lately she has been having legs edema which is better in the morning. Patient was diagnosed with sleep apnea last year but she could not tolerate CPAP and she does not want to retry it. She used to smoke 1 pack/day for about 43 years however she quit about 20 years ago. She never been on oxygen. Patient states that she used to weigh about 265 however she has been losing weight and she is now 225 pounds ROS All systems were reviewed and they were negative except for the positive findings noted above in the history No past medical history on file. Past Surgical History: Procedure Laterality Date FOOT SURGERY X2 HAND SURGERY HYSTERECTOMY INSERT / REPLACE / REMOVE PACEMAKER 10/13/2020 SHOULDER SURGERY X4 TOTAL KNEE ARTHROPLASTY Bilateral TRIGGER FINGER RELEASE 08/12/2015 TUBAL LIGATION Family History Adopted: Yes Family history unknown: Yes Social History Tobacco Use Smoking status: Former Years: 45 Types: Cigarettes Quit date: 1999 Years since quittin.8 Smokeless tobacco: Never Substance Use Topics Alcohol use: Yes Comment: OCCASIONAL Drug use: Never Allergies No Known Allergies Medications Current Outpatient Medications: cholecalciferol (Vitamin D-3) 125 MCG (5000 UT) capsule, Take 1 tablet by mouth in the morning., Disp: , Rfl: Eliquis 5 mg tablet, Take 5 mg by mouth every 12 (twelve) hours., Disp: , Rfl: flecainide (Tambocor) 100 mg tablet, TAKE 1 TABLET (100 MG) BY MOUTH EVERY 12 (TWELVE) HOURS., Disp: 180 tablet, Rfl: 3 furosemide (Lasix) 40 mg tablet, Take 1 tablet (40 mg) by mouth in the morning and at bedtime., Disp: 180 tablet, Rfl: 3 spironolactone (Aldactone) 25 mg tablet, TAKE 1 TABLET BY MOUTH EVERY DAY, Disp: 90 tablet, Rfl: 3 verapamil ER (Veralan) 180 mg 24 hr capsule, TAKE 2 CAPSULES BY MOUTH IN THE MORNING., Disp: 180 capsule, Rfl: 3 Objective Visit Vitals BP 136/66 (BP Location: Right wrist, Patient Position: Sitting) Pulse 60 Ht 1.499 m (4' 11 ) Wt 104 kg (229 lb) SpO2 98% BMI 46.25 kg/m??? Smoking Status Former BSA 2.08 m??? Physical exam: GENERAL: alert and oriented x3, well developed, in no acute distress. HEAD: atraumatic, normocephalic. EYES: CON, EOMI. NECK: trachea midline, no JVD present, no carotid bruits present. CARDIAC: S1, S2 present. RRR. No murmur, rubs, or gallops. RESPIRATORY: CTAB, no increased effort of breathing, no rales, rhonchi, or wheezing. ABDOMEN: soft, nontender, nondistended. EXTREMITIES: +1 edema bilaterally no rash/skin discoloration present. NEURO: strength/sensation equal and symmetric in bilateral upper and lower extremities. PSYCH: appropriate mood, affect, and judgement. Recent Labs 05/31/2024 White blood count 13.7, hemoglobin 9.1, hematocrit 29.8, platelet 338 Sodium 138, potassium 3.6, BUN 21, creatinine 0.82, GFR above 60, glucose 101, calcium 8.5 BNP 105, normal less than 1800 High-sensitivity troponin 8.4 12/18/2022 Cholesterol 105, HDL 48, LDL 48, triglyceride 44 Imaging and other tests EK05/31/2024 showed normal sinus rhythm, normal EKG Ech (more content not included)... [facility] 07-05-2024 History of Present illness Narrative Images from the original note were not included. HPI Establish Care Additional comments: Previous pcp Dr Cira Saldivar cardiology-dr juan Holly-- orthopedic Last edited by Carlene Yan LPN on 07/05/2024 8:59 AM. Subjective Patient ID: Breann Starks is a 78 y.o. female who presents for Establish Care (Previous pcp Dr Denis/Yariel cardiology-dr martinez/Dr. Holly-- orthopedic) and Hypertension. Hypertension Patient is here for follow-up of elevated blood pressure. Blood pressure is well controlled at home. Cardiac symptoms: none. Patient denies chest pain, claudication, dyspnea, irregular heart beat, near-syncope, orthopnea, palpitations, paroxysmal nocturnal dyspnea, syncope, and tachypnea. Cardiovascular risk factors: advanced age (older than 55 for men, 65 for women), hypertension, and obesity (BMI >= 30 kg/m2). Hypertension Current Outpatient Medications on File Prior to Visit Medication Sig Dispense Refill Ascorbic Acid (vitamin C) 100 MG tablet Take 100 mg by mouth in the morning. baclofen (Lioresal) 10 MG tablet Take 10 mg by mouth in the morning and 10 mg in the evening and 10 mg before bedtime. ferrous sulfate 325 (65 Fe) MG tablet Take 325 mg by mouth every other day flecainide (Tambocor) 100 MG tablet Take 100 mg by mouth every 12 (twelve) hours furosemide (Lasix) 40 MG tablet TAKE 1 TABLET BY MOUTH EVERY DAY 90 tablet 0 HYDROcodone-acetaminophen ([place]) 5-325 MG tablet Take 1 tablet by mouth in the morning and 1 tablet in the evening and 1 tablet before bedtime. Multiple Vitamins-Minerals (CENTRUM SILVER 50+WOMEN PO) Take 1 tablet by mouth in the morning. Natural Vitamin D-3 125 MCG (5000 UT) tablet TAKE 1 TABLET BY MOUTH EVERY DAY 90 tablet 1 omeprazole (PriLOSEC) [address] capsule TAKE 1 CAPSULE BY MOUTH EVERY DAY 90 capsule 1 apixaban (Eliquis) 5 MG tablet Take 1 tablet (5 mg) by mouth in the morning and 1 tablet (5 mg) before bedtime. 180 tablet 1 spironolactone (Aldactone) 25 MG tablet Take 1 tablet (25 mg) by mouth Daily 90 tablet 1 verapamil ER (Verelan) 180 MG 24 hr capsule Take 360 mg by mouth in the morning. No current facility-administered medications on file prior to visit. I have reviewed and reconciled the history and medication list with the patient today. Allergies Allergen Reactions Nsaids Other Reaction(s): HEART ISSUES Digoxin Rash Wound Dressing Adhesive Rash Social History Tobacco Use Smoking status: Former Types: Cigarettes Passive exposure: Past Vaping Use Vaping status: Never Used Substance Use Topics Alcohol use: Yes Comment: OCCASSIONAL Drug use: Never Family History Adopted: Yes Past Medical History: Diagnosis Date Anemia Atrial fibrillation (CMS/HCC) Centrilobular emphysema (CMS/HCC) COPD (chronic obstructive pulmonary disease) (CMS/HCC) Coronary artery disease (CMS/HCC) Diastolic dysfunction Essential hypertension (CMS/HCC) History of tobacco abuse Nonalcoholic steatohepatitis (LOJA) Obstructive sleep apnea Osteoarthritis Paroxysmal atrial fibrillation (CMS/HCC) Peptic ulcer disease Secondary pulmonary arterial hypertension (CMS/HCC) Sick sinus syndrome (CMS/HCC) Spinal stenosis, lumbar region with neurogenic claudication SVT (supraventricular tachycardia) (CMS/HCC) URTI (acute upper respiratory infection) Vertigo Vitamin D deficiency Past Surgical History: Procedure Laterality Date APPENDECTOMY HYSTERECTOMY INSERT / REPLACE / REMOVE PACEMAKER OTHER SURGICAL HISTORY Abalation REVERSE TOTAL SHOULDER ARTHROPLASTY Left 12/29/2021 DR AMIN ROTATOR CUFF REPAIR Right SHOULDER ARTHROSCOPY Bilateral (L) , (R) x3 TOTAL KNEE ARTHROPLASTY Bilateral TRIGGER FINGER RELEASE Left RF Visit Vitals BP 130/74 Pulse 69 Ht 4' 11 Wt 231 lb SpO2 96% BMI 46.66 kg/m Smoking Status Former BSA 2.09 m Review of Systems Objective Physical Exam Vitals reviewed. Constitutional: General: She is not in acute distress. Appearance: Normal appearance. She is well-developed. She is obese. HENT: Head: Normocephalic and atraumatic. Right Ear: Tympanic membrane and ear canal normal. Left Ear: Tympanic membrane and ear canal normal. Nose: Nose normal. Mouth/Throat: Mouth: Mucous membranes are moist. Pharynx: Oropharynx is clear. Posterior oropharyngeal erythema present. Eyes: General: No scleral icterus. Conjunctiva/sclera: Conjunctivae normal. Pupils: Pupils are equal, round, and reactive to light. Cardiovascular: Rate and Rhythm: Normal rate and regular rhythm. Pulses: Normal pulses. Heart sounds: Normal heart sounds. No murmur heard. Comments: LUE +2 pitting edema Pulmonary: Effort: Pulmonary effort is normal. Tachypnea present. No respiratory distress. Breath sounds: Normal breath sounds and air entry. No wheezing, rhonchi or rales. Abdominal: General: Abdomen is flat. Bowel sounds are normal. Palpations: Abdomen is soft. Musculoskeletal: General: Normal range of motion. Cervical back: Normal range of motion. Left lower le+ Edema present. Lymphadenopathy: Cervical: No cervical adenopathy. Skin: General: Skin is warm and dry. Capillary Refill: Capillary refill takes less than 2 seconds. Neurological: General: No focal deficit present. Mental Status: She is alert and oriented to person, place, and time. Psychiatric: Mood and Affect: Mood normal. Behavior: Behavior normal. Assessment/Plan Diagnoses and all orders for this visit: Persistent atrial fibrillation (HCC) (CMS/HCC) - On OAC, rate controlled. Breast screening - Bilateral screening mammogram; Future Acute non-recurrent sinusitis, unspecified location - amoxicillin-clavulanate (Augmentin) 875-125 MG tablet; Take 1 tablet (875 mg) by mouth in the morning and 1 tablet (875 mg) before bedtime. Do all this for 10 days. Neck pain on left side - Ambulatory referral to Neurology; Future - EMG AND NERVE CONDUCTION STUDY; Future - Suspect Brachial Plexus injury Radicular pain in left arm - EMG AND NERVE CONDUCTION STUDY; Future Abnormal CT scan, neck Degenerative disc disease, cervical Axillary lymphadenopathy - Mammogram, CT of chest if negative. 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 She is on OAC. Follow blood counts, reorder next appt. Sigmoid diverticulosis Irritable bowel syndrome, unspecified type - This office visit was spent in consultation regarding the patient's current medical problems, differential diagnoses, testing/imaging results, and treatment options. Greater than 45 minutes was spent in [id number] consultation and coordination of care. Follow up in about 4 months (around 11/05/2024) for Call after mammogram. documented in this encounter [facility] 05-22-2024 Note HNO ID: [id number] Author: BOO BUCHANAN PA-C Service: ? Author Type: Physician Chair Finisher Type: Progress Notes Filed: 05/22/2024 13:53 Note [...] date: COPD (chronic obstructive pulmonary disease) ([facility]) SOCIAL HISTORY: Tobacco Use: Never EXAMINATION: GENERAL: [...] of the hardware. Bone scan performed at [facility] to be uploaded to the system. Boo Buchanan (more content not included)... [facility] 05-22-2024 History of Present illness Narrative [...] measure: Reposition;Relaxation;Medication; Positioning baclofen, percocet HISTORY: Breann Stakrs has complains of left shoulder pain s/p [...] date: COPD (chronic obstructive pulmonary disease) ([facility]) SOCIAL HISTORY: Tobacco Use: Never EXAMINATION: GENERAL: [...] of the hardware. Bone scan performed at [facility] to be uploaded to the system. Boo Buchanan PA-C documented in this encounter [facility] 05-22-2024 Note HNO ID: [id number] Author: JYOTHI CRUZ RT(R) Service: ? Author [...] PATIENT PRESENTS WITH AN IMPLANTABLE OR ATTACHED SUBWAY CAR REPAIRER: No RADIOLOGY DEPARTMENT: General X-ray: Exam(s) Completed: Upper Extremity X-Ray(s): Shoulder, AP / TRUE AP / AXILLARY / SUPRA OUTLET left PERIPHERAL IV DATA: Not applicable SIGNED BY: RT Chaparrita(R) May 22, 2024 1:25 PM [facility] 05-22-2024 History of Present illness Narrative [...] PATIENT PRESENTS WITH AN IMPLANTABLE OR ATTACHED SUBWAY CAR REPAIRER: No RADIOLOGY DEPARTMENT: General X-ray: Exam(s) Completed: Upper Extremity X-Ray(s): Shoulder, AP / TRUE AP / AXILLARY / SUPRA OUTLET left PERIPHERAL IV DATA: Not applicable SIGNED BY: RT Chaparrita(R) May 22, 2024 1:25 PM documented in this encounter [facility] 03-02-2024 Note Chief Complaint consultation for anemia HPI Staff 78 year old female presents on consultation from [facility] ED for anemia. Labs completed yesterday with [...] PSVT, spinal stenosis, cervical radiculopathy; referred from [facility] ED for anemia, low iron, and [...] (paroxysmal supraventricular t (more content not included)... [facility] Comment on above: Result Comment: Elec tronically Signed By: CATHERINE CUBA, Ortega Quinonez\Date and Time Signed: 03/02/24 13:01 EDT 01-17-2024 Note Cardiovascular Medic [facility] SUBJECTIVE Chief Complaint Patient presents with Atrial Fibrillation Breann Starks is a 78 y.o. female here for follow-up. HPI PMHx: A-fib, atrial tachycardia s/p ablation 2005, sick sinus syndrome s/p PPM 10/2020 dual-chamber [employer], COPD, mild CAD s/p cardiac cath 2010, SHAWANDA noncompliant with mask, and obesity. She has been doing well since last seen. No significant changes. Denies c/o CP, dyspnea, orthopnea, PND, LE edema, dizziness/LH, palpitations, syncope. Patient Active Problem List Diagnosis Disorder of bursae of shoulder region Chronic obstructive lung disease (CMS/HCC) Atherosclerosis of sycuan coronary artery of sycuan heart without angina pectoris Diaphragmatic hernia Edema [...] Absolu (more content not included)... [facility] 01-17-2024 Note Patient here for 6 m o follow up persistent afib, CAD, hypertension, and sinus node dysfunction. Her device was interrogated in the office last month. Denies chest pain, SOB, lightheadedness/syncope, and bleeding on Eliquis. Says she feels great. Review of Systems Musculoskeletal: Positive for back pain. Neurological: Positive for numbness. All other systems reviewed and are negative. [facility] 10-07-2021 Evaluation note Encounter Date Diagnosis Assessment Notes Sep, LOJA (nonalcoholic steatohepatitis ) (ICD-10 - K75.81) OBTAIN FIBROSURE RESULTS FROM [facility] REASSURANCE ON RESULTS PT ENCOURAGED WEIGHT LOSS RTO ONE YEAR WITH LABS ANNUALLY Sep, Unspecified cirrhosis of liver (ICD-10 - K74.60) Minka Other 12-15-2021 Evaluation note* Encounter Date Diagnosis Assessment Notes Treatment Notes Treatment Clinical Notes Aug, Nonalcoholic steatohepatitis (LOJA) (ICD-10 - K75.81) RTO 6-8 WEEKS Aug, Unspecified cirrhosi s of liver (ICD-10 - K74.60) Aug, Morbid obesity (ICD- 10 - E66.01) Minka Other Evaluation + Plan note No data available for this section [facility] [place] Evaluation noteNo assessment information available [facility] Work Phone: Evaluation note* Diagnosis 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)- Primary Left shoulder pain, unspecified chronicity Left shoulder pain, unspecified chronicity [facility] Left shoulder pain, unspecified chronicity [facility] Diagnosis Acute on chronic diastolic (congestive) heart failure (CMS/HCC) [facility] Diagnosis Essential hypertension (CMS/HCC)- Primary Unspecified essential hypertension Persistent atrial fibrillation (HCC) (CMS/HCC) Atrial fibrillation Chronic bilateral low back pain with bilateral sciatica Medicare annual wellness visit, subsequent COPD exacerbation (CMS/HCC)- Primary Obstructive chronic bronchitis with exacerbation Chronic obstructive pulmonary disease, unspecified COPD type (CMS/HCC)- Primary Persistent atrial fibrillation (HCC) (CMS/HCC) Atrial fibrillation Sick sinus syndrome (I49.5) Sinoatrial node dysfunction Morbid (severe) obesity due to excess calories (E66.01) Body mass index [BMI] 45.0-49.9, adult (Z68.42) 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- Primary Chronic obstructive pulmonary disease, unspecified COPD type (CMS/HCC)- Primary Persistent atrial fibrillation (HCC) (CMS/HCC) Atrial fibrillation Essential hypertension (CMS/HCC) Unspecified essential hypertension Chronic bilateral low back pain with bilateral sciatica Class 3 severe obesity due to excess calories without serious comorbidity with body mass index (BMI) of 45.0 to 49.9 in adult (CMS/HCC) Acute on chronic diastolic (congestive) heart failure (CMS/HCC)- Primary Chronic left shoulder pain Pain in joint, shoulder region Acute on chronic diastolic (congestive) heart failure (CMS/HCC)- Primary Iron deficiency anemia due to chronic blood loss Iron deficiency anemia secondary to blood loss (chronic) Chronic left shoulder pain Pain in joint, shoulder region Iron deficiency anemia due to chronic blood loss- Primary Iron deficiency anemia secondary to blood loss (chronic) Chronic left shoulder pain Pain in joint, shoulder region Acute on chronic diastolic (congestive) heart failure (CMS/HCC)- Primary Persistent atrial fibrillation (HCC) (CMS/HCC)- Primary Atrial fibrillation Breast screening Breast screening, unspecified Acute non-recurrent sinusitis, unspecified location Neck pain on left side Radicular pain in left arm Unspecified neuralgia, neuritis, and radiculitis Abnormal CT scan, neck Degenerative disc disease, cervical Axillary lymphadenopathy Enlargement of lymph nodes 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 Unspecified anemia Sigmoid diverticulosis Irritable bowel syndrome, unspecified type documented in this encounter [facility] HealthcareEvaluation note* Diagnosis Essential hypertension (CMS/HCC)- Primary Unspecified essential hypertension Persistent atrial fibrillation (HCC) (CMS/HCC) Atrial fibrillation Chronic bilateral low back pain with bilateral sciatica Medicare annual wellness visit, subsequent COPD exacerbation (CMS/HCC)- Primary Obstructive chronic bronchitis with exacerbation Chronic obstructive pulmonary disease, unspecified COPD type (CMS/HCC)- Primary Persistent atrial fibrillation (HCC) (CMS/HCC) Atrial fibrillation Sick sinus syndrome (I49.5) Sinoatrial node dysfunction Morbid (severe) obesity due to excess calories (E66.01) Body mass index [BMI] 45.0-49.9, adult (Z68.42) 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- Primary Chronic obstructive pulmonary disease, unspecified COPD type (CMS/HCC)- Primary Persistent atrial fibrillation (HCC) (CMS/HCC) Atrial fibrillation Essential hypertension (CMS/HCC) Unspecified essential hypertension Chronic bilateral low back pain with bilateral sciatica Class 3 severe obesity due to excess calories without serious comorbidity with body mass index (BMI) of 45.0 to 49.9 in adult (CMS/HCC) Acute on chronic diastolic (congestive) heart failure (CMS/HCC)- Primary Chronic left shoulder pain Pain in joint, shoulder region Acute on chronic diastolic (congestive) heart failure (CMS/HCC)- Primary Iron deficiency anemia due to chronic blood loss Iron deficiency anemia secondary to blood loss (chronic) Chronic left shoulder pain Pain in joint, shoulder region Iron deficiency anemia due to chronic blood loss- Primary Iron deficiency anemia secondary to blood loss (chronic) Chronic left shoulder pain Pain in joint, shoulder region Acute on chronic diastolic (congestive) heart failure (CMS/HCC)- Primary Essential hypertension (CMS/HCC) Unspecified essential hypertension documented in this encounter [facility] general Narrative - Reported* Type Description [...] Surgical History pacemaker Hospitalization History see above [facility] Other Hospital Discharge instructions No data available for this section [facility] General Surgery DX Urgent Care Progress note No data available for this section [facility] General Surgery [place] Reason for referral (narrative)* Diagnostic Procedure Only (Routine) - Closed Specialty Diagnoses / Procedures Referred By Millie egan Referred To Contact XR IMAGING Diagnoses Left shoulder pain, unspecified chronicity Procedures XR SHOULDER ORTHO 4V AP/TRUE AP/LAT/OUTLET LEFT RADEX SHOULDER COMPLETE MINIMUM 2 VIEWS Boo Buchanan PA-C [address] [place] [address] [place] [address] Referral ID Status Reason Start Date Expiration Date V isits Requested Visits Authorized [id number] Closed Auto-Generate d Referral 05/08/2024 06/07/2025 1 1 [facility] for visit Narrative* Diagnostic Procedure Only (Routine) - Closed Specialty Diagnoses / Procedures Referred By Millie egan Referred To Contact XR IMAGING Diagnoses Left shoulder pain, unspecified chronicity Procedures XR SHOULDER ORTHO 4V AP/TRUE AP/LAT/OUTLET LEFT RADEX SHOULDER COMPLETE MINIMUM 2 VIEWS Boo Buchanan PA-C [address] [facility] [place] [place] [address] [place] [address] Referral ID Status Reason Start Date Expiration Date V isits Requested Visits Authorized [id number] Closed Auto-Generate d Referral 05/08/2024 06/07/2025 1 [...] EXTREMITY W/O CONTRAST MATERIAL Boo Buchanan PA-C [address] [facility] [place] [address] [place] [id number] Referral ID Status Reason Start Date Expiration Date Visits Requested Visits Authorized [id number] New Request Auto-Generat ed Referral 05/22/2024 06/21/2025 1 1 Specialty Diagnoses / Procedures Referred By Millie t Referred To Contact XR IMAGING Diagnoses Left shoulder pain, unspecified chronicity Procedures XR SHOULDER ORTHO 4V AP/TRUE AP/LAT/OUTLET LEFT RADEX SHOULDER COMPLETE MINIMUM 2 VIEWS Boo Buchanan PA-C [address] [facility] [place] [address] [place] [address] Referral ID Status Reason Start Date Expiration Date V isits Requested Visits Authorized [id number] Closed Auto-Generate d Referral 05/08/2024 06/07/2025 1 1 Additional Source Comments INFORMATION SOURCE (unrecogn ized section and content) DATE CREATED AUTHOR 10/23/2021 [facility] DATE CREATED AUTHOR AUTHOR'S ORGANIZ ATION 01/22/2022 [facility] DATE CREATED AUTHOR AUTHOR'S ORGANIZ ATION 02/18/2023 [facility] DATE CREATED AUTHOR AUTHOR'S ORGANIZ ATION 03/11/2024 [facility] DATE CREATED AUTHOR AUTHOR'S ORGANIZ ATION 04/30/2024 [facility] DATE CREATED AUTHOR AUTHOR'S ORGANIZ ATION 05/04/[address] [facility] DATE CREATED AUTHOR AUTHOR'S ORGANIZ ATION 05/24/2024 [facility] DATE CREATED AUTHOR AUTHOR'S ORGANIZ ATION 07/20/2024 [facility] DATE CREATED AUTHOR AUTHOR'S ORGANIZ ATION 07/21/2024 [facility] EPIC REASON FOR VISIT (unrecogniz ed section and content) Reason Comments Radiology XR Reason Comments New Specialty Diagnoses / Procedures Referred By Millie egna Referred To Contact Orthopedics / [facility] Diagnoses Acute pain of left shoulder History of reverse total replacement of left shoulder joint Procedures OFFICE/OUTPATIENT NEW HIGH MDM 60 MINUTES OFFICE/OUTPATIENT ESTABLISHED HIGH MDM 40 MIN AMB REFERRAL TO ORTHOPAEDIC SURGERY Pedro Pablo Cruz PA [address] [facility] [address] [place] [address] González Alvarado MD [address] [place] [address] Referral ID Status Reason Start Date Expiration Date V isits Requested Visits Authorized [id number] Authorized 05/08/2024 09/11/2024 99 99 Reason Comments Med Refill Reason Comments Establish Care Previous pcp Dr Damian adSees cardiology-dr chakoDr. Holly-- orthopedic Hypertension Care Teams (unrecognized sec tion and content) Team Status: Active Member Role Status Dates Shaikh Cira MD Primary Care Provider Active Team Status: Inactive Member Role Status Dates THANG Porter Attending Provider Active Shaikh Cira MD Primary Care Provider Active Team Status: Inactive Member Role Status Dates Claire E Urbano , SCANNING CLERK-C Attending Provider Active St art: September 08, 2023 End: September 08, 2023 Shaikh Cira MD Primary Care Provider Active Start: September 08, 2023 End: September 08, 2023 Team Status: Inactive Member Role Status Dates Claire Clement NP-C Attending Provider Active St art: October 11, 2023 End: October 11, 2023 Shaikh Cira MD Primary Care Provider Active Start: October 11, 2023 End: October 11, 2023 Trade Economist Relationship Specialty Start Date End Date Shaikh [...] May 02, 2024 End: May 02, 2024 Pedr oPablo Cruz PA-C Attending Provider Active S tart: May 02, 2024 End: May 02, 2024 Trade Economist Relationship Specialty Start Date End Date Luisana Johnson MD [address] [place] [address] PCP - General 01/05/06 Pedro Pablo Cruz MD [address] [place] [address] Referring Infectious Diseases 05/07/24 Trade Economist Relationship Specialty Start Date End Date Luisana Johnson MD [address] [place], [place] [id number] PCP - General 01/05/06 Pedro Pablo Cruz MD [address] [place] [address] Referring Infectious Diseases 05/07/24 Trade Economist Relationship Specialty Start Date End Date Luisana Johnson MD [address] [place] [address] PCP - General 01/05/06 Pedro Pablo Cruz MD [address] [place] [address] Referring Infectious Diseases 05/07/24 Trade Economist Relationship Specialty Start Date End Date Wesley Long MD [address] [place] [phone] PCP - General Family Medicine 05/17/24 Monster Calvillo NP [address] [place] [phone] Nurse Practitioner Family Medicine 05/17/24 Trade Economist Relationship Specialty Start Date End Date Wesley Long MD [address] [place] [phone] PCP - General Family Medicine 05/17/24 Monster Calvillo NP [address] [place] [phone] Nurse Practitioner Family Medicine 05/17/24 Trade Economist Relationship Specialty Start Date End Date Wesley Long MD [address] [place] [phone] PCP - General Family Medicine 05/17/24 Monster Calvillo NP [address] [place] [address] Nurse Practitioner Family Medicine 05/17/24 Trade Economist Relationship Specialty Start Date End Date Wesley Long MD [address] [place] [address] PCP - General Family Medicine 05/17/24 Monster Calvillo NP [address] [place] [address] Nurse Practitioner Family Medicine 05/17/24 Goals (unrecognized [...] BE BASED ON THE PRIMARY CLINICAL RECORDS. [facility] [employer] [facility]. provides no warranty or guarantee of the accuracy or completeness of information in this document.
[2024-07-24 12:32] LABS: Basophils Absolute Auto 0.1 10^3/uL (0.0-0.1); Basophils Percent Auto 0.9 % (0.2-2.0); Eosinophils Absolute Auto 0.1 10^3/uL (0.0-0.7); Eosinophils Percent Auto 0.9 % (0.9-7.0); Hematocrit 29.9 % (36.0-48.0); Hemoglobin 8.7 g/dL (12.0-16.0); Immature Granulocytes Abs Auto 0.03 10^3/uL (0.00-0.03); Immature Granulocytes Pct Auto 0.3 % (0.0-0.5); Lymphocytes Absolute Auto 1.4 10^3/uL (1.2-3.8); Lymphocytes Percent Auto 14.1 % (20.5-60.0); Mean Corpuscular HGB Conc 29.1 g/dL (29.9-35.2); Mean Corpuscular Hemoglobin 22.3 pg (26.7-34.0); Mean Corpuscular Volume 76.7 fL (81.0-99.0); Mean Platelet Volume 9.3 fL (9.5-13.5); Monocytes Absolute Auto 0.7 10^3/uL (0.3-0.8); Monocytes Percent Auto 6.6 % (1.7-12.0); Neutrophils Absolute Auto 7.7 10^3/uL (1.4-6.5); Neutrophils Percent Auto 77.2 % (43.0-75.0); Platelet Count 328 10^3/uL (150-450); Red Cell Distribution Width 17.7 % (11.0-15.0)
[2024-07-24 13:24] LABS: Percent Iron Saturation 4.5 %
[2024-07-25 11:12] LABS: Transferrin 284 mg/dL (192-364)
== END 2024-07-24 11:39 | disposition home or self-care (01) ==
LOC: LAB 11:40
PROVIDERS: PCP Internal Medicine; Visit Provider Physician Assistant
DX: D64.89 Other specified anemias (principal); D50.0 Iron deficiency anemia secondary to blood loss (chronic)
CPT/HCPCS: 36415; 83540; 83550; 84466; 85025

== ENCOUNTER 2024-08-01 09:53 | Outpatient (OUT) | payer MEDICARE, SELFPAY ==
--- NOTE | 2024-08-01 10:29 | P.CN_ITS ---
Consult Note: HPI Data of Consult Patient: known to practice within the last 3 years Requesting Physician: Claire Clement NP Primary Care Provider: FAVIAN LUNA Consult Narrative Reason for consult: chronic neck, left shoulder and LUE pain Narrative: Breann Starks a pleasant 78 year old female presents for evlauation of chronic left shoulder, neck and LUE pain with numbness tingling and weakness. Hx of left reverse total shoulder with subsequent pain, however 6 months ago she noticed increase in LUE pain/weakness. Pt has been cleared by orthopedics. failed HEP/PT greater than [address] shows extensive DDD, and EMG of BUE reveals chronic left C6 radiculopathy. Pt had been on gabapentin which caused side effects and she discontinued, cannot take NSAIDs on eliquis. mild relief from tylenol, baclofen, and hydrocodone-acetaminophen without side effects. Pain today 8/10 burning pressure with numbness tingling and weakness of LUE. cc:: CC: Claire Clement NP Review of Systems ROS Status of ROS 10 or more systems reviewed and unremark able except as noted in history and below Musculoskeletal Reports: back pain, neck pain, extremity pain and joint pain PFSH [facility] Medical History (Updated 08/01/24 @ 10:33 by Claire Clement NP) Arthritis ?M19.90 - Unspecified osteoarthritis, unspecified site (ICD-10) Chronic obstructive pulmonary disease ?J44.9 - Chronic obstructive pulmonary disease, unspecified (ICD-10) Peptic ulcer ?K27.9 - Peptic ulcer, site unspecified, unspecified as acute or chronic, without hemorrhage or perforation (ICD-10) Dyspnea on exertion ?R06.09 - Other forms of dyspnea (ICD-10) Anemia ?D64.9 - Anemia, unspecified (ICD-10) Hypertension ?I10 - Essential (primary) hypertension (ICD-10) Extremity edema ?R60.0 - Localized edema (ICD-10) Congestive heart failure ?I50.9 - Heart failure, unspecified (ICD-10) Atrial fibrillation ?I48.91 - Unspecified atrial fibrillation (ICD-10) Shoulder pain ?M25.519 - Pain in unspecified shoulder (ICD-10) Fatty liver ?K76.0 - Fatty (change of) liver, not elsewhere classified (ICD-10) History of shingles ?Z86.19 - Personal history of other infectious and parasitic diseases (ICD- 10) Osteoarthritis ?M19.90 - Unspecified osteoarthritis, unspecified site (ICD-10) Pacemaker ?Z95.0 - Presence of cardiac pacemaker (ICD-10) Hiatal hernia ?K44.9 - Diaphragmatic hernia without obstruction or gangrene (ICD-10) Low back pain ?M54.50 - Low back pain, unspecified (ICD-10) Irregular heart beat ?I49.9 - Cardiac arrhythmia, unspecified (ICD-10) Surgical History History of shoulder replacement ?Z96.619 - Presence of unspecified artificial shoulder joint (ICD-10) S/P rotator cuff repair ?Z98.890 - Other specified postprocedural states (ICD-10) History of colonoscopy ?Z98.890 - Other specified postprocedural states (ICD-10) S/P YANELI-BSO ?Z90.710 - Acquired absence of both cervix and uterus (ICD-10) ?Z90.722 - Acquired absence of ovaries, bilateral (ICD-10) ?Z90.79 - Acquired absence of other genital organ(s) (ICD-10) H/O cardiac catheterization ?Z98.890 - Other specified postprocedural states (ICD-10) H/O arthroscopy of shoulder ?Z98.890 - Other specified postprocedural states (ICD-10) H/O arthroscopy of knee ?Z98.890 - Other specified postprocedural states (ICD-10) History of appendectomy ?Z90.49 - Acquired absence of other specified parts of digestive tract (ICD-1 0) History of total knee arthroplasty ?Z96.659 - Presence of unspecified artificial knee joint (ICD-10) Social History Within the past year, how often did you have a drink containing alcohol: monthly or less Smoking status: Former smoker Non-prescribed substance use: denies use Previous occupational history: retired Highest level of school completed/degree received: high school graduate Little interest or pleasure in doing things: not at all Feeling down, depressed, or hopeless: not at all Meds Home Medications and Allergies Home Medications ?Medication ?Instructions ?Recorded ?Confirmed ?Type cholecalciferol (vitamin D3) 125 5,000 unit PO DAILY 02/16/23 04/16/24 History mcg (5,000 unit) tablet (Vitamin D3) flecainide 100 mg tablet 100 mg PO Q12H 02/16/23 04/16/24 History omeprazole 40 mg capsule,delayed 40 mg PO DAILY 02/16/23 04/16/24 History release spironolactone 25 mg tablet 25 mg PO DAILY 02/16/23 04/16/24 History (Aldactone) verapamil 180 mg tablet,extended 180 mg PO Q12H 02/16/23 04/16/24 History release (Calan SR) apixaban 5 mg tablet (Eliquis) 5 mg PO BID 05/11/23 04/16/24 History baclofen 10 mg tablet 10 mg PO TID #90 tabs 02/15/24 04/16/24 Rx hydrocodone 5 mg-acetaminophen 325 1 tab PO BID #6 tabs 02/15/24 04/16/24 Rx mg tablet furosemide 40 mg tablet 40 mg PO DAILY 03/01/24 04/16/24 History tramadol 50 mg tablet 50 mg PO QPM 03/06/24 04/16/24 History hydrocodone 5 mg-acetaminophen 325 1 tab PO TID PRN pain #90 tabs 05/17/24 Rx mg tablet naloxone 4 mg/actuation nasal 4 mg intranasal Q3M PRN opioid 05/17/24 Rx spray (Narcan) overdose #2 ea benzonatate 100 mg capsule 100 mg PO TID PRN cough #14 caps 05/25/24 Rx cephalexin 500 mg capsule 500 mg PO Q8H 7 days #21 caps 05/25/24 Rx doxycycline hyclate 100 mg tablet 100 mg PO BID 7 days #14 tabs 05/25/24 Rx ipratropium 0.5 mg-albuterol 3 mg 3 ml inhalation Q6H PRN shortness 05/25/24 Rx (2.5 mg base)/3 mL nebulization of breath #90 mL soln prednisone 50 mg tablet 50 mg PO DAILY 5 days #5 tabs 05/25/24 Rx baclofen 10 mg tablet 10 mg PO TID PRN muscle spasm #90 06/21/24 Rx tabs hydrocodone 5 mg-acetaminophen 325 1 tab PO TID PRN pain #90 tabs 06/21/24 Rx mg tablet hydrocodone 5 mg-acetaminophen 325 1 tab PO TID PRN pain #90 tabs 07/26/24 Rx mg tablet Allergies Allergy/AdvReac Type Severity Reaction Status Date / Time No Known Drug Allergies Allergy Verified 05/31/24 14:46 Exam Constitutional Documenting provider has reviewed patient's vital signs: yes Common normals: no apparent distress, oriented x3, healthy appearing, alert and well nourished General appearance: cooperative HENMT Common normals: normocephalic, hearing grossly normal bilaterally and moist oral mucous membranes Head and scalp: normocephalic Eye Common normals: PERRL Pupil: PERRL Neck & C-Spine Common normals: full ROM General: normal visual inspection Cervical spine: cervical ROM abnormal, pain with cervical ROM, cervical spine tenderness and trapezius muscle tenderness Other: positive spurlings decreased sensation to left C5,6 strength 3/5 in LUE 5/5 in RUE Chest Common normals: inspection of chest normal Respiratory Common normals: normal respiratory effort, no retractions and no use of accessory muscles Extremity Left upper extremity: shoulder joint Other: limited ROM, moderate to severe pain Neuro Common normals: oriented x3, CN's II-XII intact bilaterally, moves all extremities, no focal motor deficits, no sensory deficits noted and deep tendon reflexes 2+ bilaterally Sensorium/orientation: alert Motor exam: strength 5/5 throughout and no movement abnormalities noted Psych Common normals: mental status grossly normal, thought process normal, cooperative, affect normal, speech normal and activity/motor behavior normal Speech: normal speech Thought process: normal thought process Results Additional Findings Additional findings: If on a controlled substance or opioids, I have checked an [place]AR[place] report on this patient and there are no aberrancies noted in the prescribing history.??If on a controlled substance or opioid a drug screen was completed and reviewed within the last year, and if there has not been a drug screen completed we ordered one today to monitor higher risk, state monitored pain medication use. As part of providing excellent, safe, comprehensive care, the following was completed at our patient's visit: 1. A medication reconciliation and review to ensure accurate knowledge of current/active medications, including asking our patients to inform us about any uunk-dis-lgvhras medications or herbal remedies/nutritional supplements/alternative remedies. 2. A review to specifically ensure our patients have had annual screening for screening for depression, screening for tobacco use, and screening for unhealthy alcohol use. For concerning screenings had a discussion with the patient, provided patient education, and recommended follow-up with primary care provider when appropriate. If patient noted with a risk of falling, they received education on strength, gait, and balance training to prevent future risk of falling. Assessment and Plan Assessment and Plan (1) Cervical radiculopathy: (2) Degenerative disc disease, cervical: (3) Chronic left shoulder pain: (4) Chronic use of opiate drug for therapeutic purpose: Plan proceed with Left C5,6 C6,7 TFESI under fluoroscopy, risks vs benefits reviewed consider left suprascapular/axillary nerve block working towards RFA for chronic left shoulder pain update UDS for medication monitoring of chronic prescription opioid use continue HEP as tolerated, recommend PT in the future to improve strength and ROM continue current medications f/u 1-2 weeks after injection
== END 2024-08-01 09:54 | disposition home or self-care (01) ==
LOC: PM 09:53
PROVIDERS: PCP Internal Medicine; Visit Provider Nurse Practitioner
DX: M54.12 Radiculopathy, cervical region (principal); M50.30 Other cervical disc degeneration, unspecified cervical region; M25.512 Pain in left shoulder; Z79.891 Long term (current) use of opiate analgesic
CPT/HCPCS: G0463

== ENCOUNTER 2024-08-07 08:21 | Outpatient (OUT) | payer MEDICARE, SELFPAY ==
--- NOTE | 2024-08-07 08:23 | FL_ITS ---
The [address] [address] Patient Name: MAXIMUS HERRMANN MRN: [id number] date: 1945 Sex: F Assigned Patient Location: [place] Current Patient Location: Accession/Order Number: [id number] Exam Date: 08/07/2024 08:45 Report Date: 08/08/2024 06:31 At the request of: FAVIAN LUNA Procedure: FL cineradiography PROCEDURE: FL upper GI w air, FL cineradiography COMPARISON: None. HISTORY: Nausea , dry heaving for several weeks TECHNIQUE: An air contrast upper gastrointestinal series was performed in the usual manner. Standard level fluoroscopic mode of operation utilized. FINDINGS: ESOPHAGUS:Frequent episodes of moderate gastroesophageal reflux. No esophageal stricture or abnormal dilation. Slightly decreased peristalsis. STOMACH: No obstruction, mass, or ulceration. Normal motility. DUODENUM:No ulceration or diverticulum. OTHER: Negative. FL/FL cineradiography IMPRESSION: 1. Moderate gastroesophageal reflux. Electronically authenticated by: PAULA BROWN Date: 08/08/2024 06:31
--- NOTE | 2024-08-07 08:23 | FL_ITS ---
The [address] [address] Patient Name: MAXIMUS HERRMANN MRN: [id number] date: 1945 Sex: F Assigned Patient Location: [place] Current Patient Location: Accession/Order Number: [id number] Exam Date: 08/07/2024 08:45 Report Date: 08/08/2024 06:31 At the request of: FAVIAN LUNA Procedure: FL upper GI w air PROCEDURE: FL upper GI w air, FL cineradiography COMPARISON: None. HISTORY: Nausea , dry heaving for several weeks TECHNIQUE: An air contrast upper gastrointestinal series was performed in the usual manner. Standard level fluoroscopic mode of operation utilized. FINDINGS: ESOPHAGUS:Frequent episodes of moderate gastroesophageal reflux. No esophageal stricture or abnormal dilation. Slightly decreased peristalsis. STOMACH: No obstruction, mass, or ulceration. Normal motility. DUODENUM:No ulceration or diverticulum. OTHER: Negative. FL/FL upper GI w air IMPRESSION: 1. Moderate gastroesophageal reflux. Electronically authenticated by: PAULA BROWN Date: 08/08/2024 06:31
--- OUTSIDE RECORDS SUMMARY | 2024-08-07 08:24 | XMS_ITS | CCD ---
Author Organization [facility] CliniSyms Care Team Providers Care Game Author Name Role Phone ZANE MCGUIRE Admitting Unavailable YANCY HENNESSY Referring Unavailable LUISANA JOHNSON Primary Care Unavailable ZANE MCGUIRE Attending Unavailable YANCY HENNESSY Surgeon Unavailable CO Procedure Practitioner Unavailab Hong Adler Unavailable JOHNSON [...] ., DR LUISANA Jarquin Primary Care Unavailable ZIEBER, DR PAULA Bishop [...] ., DR LUISANA Jarquin Primary Care Unavailable GRECHIRENE ., DANIELLE SHAIKH Consulting Unavailpriyanka jarquin RIVER ., KAYLEY Admitting Unavailable RIVER ., KAYLEY Attending Unavailable [place], DR HONG Morgan Consulting Unavailable JOHNSON ., [...] DR LUISANA Jarquin Primary Care Unavailable [facility] Attending Unavailable CAM[facility]OKINGS[facility]ENTER[facility]lysa, SAHU H Admitting Unavailable SAMSA ., LUIZ Admitting Unavailable SAMSA ., LUIZ Attending Unavailable SAMSA ., LUIZ Consulting Unavailable JOHNSON ., DR LUISANA Jarquin Primary Care Unavailable THANG Clement Attending Provider [phone] MD Cira [facility] Provider [phone] THANG Clement Attending Provider [phone] Cira CUBA [facility] Provider [phone] Ortega ALEXANDER Attending Unavailable SERGE DENISIKH Referring Unavailable Ortega ALEXANDER Attending Unavailable MD Cira [facility] Provider DO James Jones Attending Provider Katherine CUBA, Andrius Sainz Attending Unavailable Giedraitis , Andrius Vrenee Attending Unavailable Giedraitis , Andrius Vrenee Attending Unavailable Giedraitis , Andrius Vrenee Attending Unavailable YOLY Cruz Attending Provider [phone] Serge [facility] Unavailable Kayley Reeder Admitting Unavailable Kayley Reeder Attending Unavailable [facility] Care Unavailable James Jones Admitting Unavailable James Jones Attending Unavailable [facility] Unavailable James Jones Admitting Unavailable James Jones Attending Unavailable [facility] Care Unavailable Pedro Pablo Cruz Admitting Unavailable Pedro Pablo Cruz Attending Unavailable Shaikh Denis Primary Care Unavailable Urbano, Claire Britton Admitting Unavailable Claire Clement Attending Unavailable Cira, Primary Care Unavailable Roopa Clementa Britton Admitting Unavailable Claire Clement Attending Unavailable Elizabeth CUBA, Luisana Gaspar Primary Care Provider Pedro Pablo Cruz MD Unavailable [phone] LUISANA JOHNSON Primary Care Unavailable BOO BUCHANAN Attending Unavailable PEDRO PABLO CRUZ Referring Unavailable LUISANA JOHNSON Primary Care Unavailable BOO BUCHANAN Referring Unavailable Wesley Long MD Primary Care Provider Rajinder BOSWELL, Monster Unavailable YANCY HENNESSY Referring Unavailable NICANOR CANNON Attending Unavailable YANCY HENNESSY Referring Unavailable KOLTON ALTMAN Attending Unavailable JR. FRANK GEORGE C Attending Unavaila RENNY Barnhart Attending Unavailable RENNY HANSEN Attending Unavailable SHAIKH DENIS Attending Unavailable CIRA, Attending Unavailable ELEANOR LEAHY Attending Unavailable MONSTER CALVILLO Attending UnavailPEDRO PABLO Ponce Referring Unavailable PEDRO PABLO CRUZ Attending Unavailable CIRA, Attending Unavailable CIRA, Attending Unavailable CIRA, Attending Unavailable CIRA, Attending Unavailable CIRA, Attending Unavailable Allergies Allergy Classification Reported Allergen(s) Allergy Type Date of Onset Reaction(s) Facility NSAIDs (1 source) meloxicam; Translations: [Mobic] Drug Allergy [facility] Repository Unclassified (1 source) No Known Medication Allergies; Translations: [No Known Medication Allergies] Propensity to adverse reactions (disorder) [facility] Repository (1 source) novacaine; Translations: [novacaine] Propensity to adverse reactions (disorder) 2 [facility] Repository (16 sources) NSAIDs Propensity to adverse reactions 4 HEART ISSUES [facility] (7 sources) Adhesive agent; Translations: [adhesive] Allergy to substance 4 [facility] (4 sources) NSAIDS (Non-Steroidal Anti-Inflamma; Translations: [NSAIDS (Non-Steroidal Anti-Inflamma] Allergy to substance 4 HEART ISSUES [facility] (14 sources) Digoxin Drug Allergy 4 Rash [facility] Healthcare Work Phone: (14 sources) Wound Dressing Adhesive Drug Allergy 4 [facility] Healthcare Medications Current Medications Medication Drug Class(es) Dates Sig (Normalized) Sig (Original) acetaminophen 325 mg / HYDROcodone bitartrate 5 mg oral tablet (16 sources) Opioid Agonist Start: 06-21-2024 take 1 tablet by mouth in the morning, then take 1 tablet by mouth in the evening, then take 1 tablet by mouth at bedtime HYDROcodone-aceta minophen ([place]) 5-325 MG tablet Take 1 tablet by [...] 07/15/2024 Active apixaban 5 mg oral tablet (20 sources) Factor Xa Inhibitor Start: 05-05-2023 End: 06-11-2024 take 1 tablet by mouth in the morning apixaban (Eliquis) 5 MG tablet Indications: Persistent atrial fibrillation (HCC) (CMS/HCC) Take 1 tablet (5 mg) by mouth in the morning and 1 tablet (5 mg) before bedtime. 180 tablet 1 12/14/2023 Active ascorbic acid 100 mg oral tablet (15 sources) Vitamin C take 1 tablet by mouth in the morning Ascorbic Acid (vitamin C) 100 MG tablet Take 100 mg by mouth in the morning. Active baclofen 10 mg oral tablet (16 sources) gamma-Aminobutyric Acid-ergic Agonist Start: 06-21-2024 take [...] Status: Ordered cholecalciferol 0.125 mg oral tablet (20 sources) Vitamin D Start: 2023 take 1 [...] sulfate 325 mg delayed release oral tablet (16 sources) Start: 03-21-2024 End: 06-19-2024 take 1 [...] Active flecainide acetate 100 mg oral tablet (20 sources) Antiarrhythmic Start: 03-08-2024 take 1 tablet [...] 1 (one) time each day 0 Active fluticasone propionate 0.05 mg/actuat metered dose nasal spray (7 sources) Corticosteroid Start: 07-24-2024 End: 08-07-2024 take 1-2 spray(s) nasal route once daily fluticasone (Flonase) 50 MCG/ACT nasal spray Indications: Post-nasal drip Administer 1-2 sprays into each nostril Daily for 14 days Shake gently. Before first use, prime pump. After use, clean tip and replace cap. 16 g 07/24/2024 08/02/2024 Discontinued furosemide 40 mg oral tablet (18 sources) Loop Diuretic Start: 03-21-2024 End: 06-18-2024 [...] day Active gabapentin 300 mg oral capsule (7 sources) Anti-epileptic Agent Start: 09-06-2023 End: 07-24-2024 take 1 capsule by mouth at bedtime [...] hrs Multiple Vitamins-Minerals (CENTRUM SILVER 50+WOMEN PO) (15 sources) take 1 tablet by mouth in the morning Multiple Vitamins-Minerals (CENTRUM SILVER 50+WOMEN PO) Take 1 tablet by mouth in the morning. Active take 1 tablet by mouth in the mo rning Multiple Vitamins-Minerals (CENTRUM SILVER 50+WOMEN PO) Take 1 tablet by mouth in the morning. 0 Active omeprazole 40 mg delayed release oral capsule (20 sources) Proton Pump Inhibitor Start: 07-09-2024 take 1 capsule by mouth once daily omeprazole (PriLOSEC) [address] capsule Indications: Peptic ulcer, site unspecified, unspecified as acute or chronic, without hemorrhage or perforation , Peptic ulcer Take 1 capsule (40 mg) by mouth Daily 90 capsule 1 07/09/2024 Active Start: 02-15-2023 take 1 capsule by [facility] once daily omeprazole (PriLOSEC) [address] capsule Indications: Peptic ulcer, site unspecified, unspecified as acute or chronic, without hemorrhage or perforation , Peptic ulcer TAKE 1 CAPSULE BY MOUTH EVERY DAY 90 capsule 1 01/11/2024 Active take 1 capsule by [facility] every twenty-four hours Omeprazole 40 MG 1 capsule Orally Once a day Active potassium chloride 10 meq extended release oral capsule (2 sources) take 1 capsule by mouth every twenty-four hours Potassium Chloride 10 MEQ 1 capsule with food Orally Once a day Active spironolactone 25 mg oral tablet (20 sources) Aldosterone Antagonist Start: End: take 1 tablet by mouth once daily spironolactone (Aldactone) 25 MG tablet Indications: Essential hypertension (CMS/HCC) TAKE 1 TABLET BY MOUTH EVERY DAY 90 tablet 1 07/16/2024 Active 24 hr verapamil hydrochloride 180 mg extended release oral capsule (20 sources) Calcium Channel Ozzy Start: take 1 [...] morning. 02/14/2023 Active take 1 capsule by [facility] every twenty-four hours Verapamil HCl ER 360 [...] 1 tablet Orally Once a day Active Completed/Discontinued Medications Medication Drug Class(es) Dates Sig (Normalized) Sig (Original) ondansetron 4 mg disintegrating oral tablet (4 sources) Serotonin-3 Receptor Antagonist Start: 07-24-2024 End: 07-31-2024 take 1 tablet by mouth every eight hours as needed for nausea and vomiting and nausea and nausea ondansetron ODT (Zofran-ODT) 4 MG disintegrating tablet Indications: Nausea Take 1 tablet (4 mg) by mouth every 8 (eight) hours if needed for nausea or vomiting for up to 7 days 21 tablet 07/24/2024 07/31/2024 Problems Active Problems Problem Classification Problem Date Documented Da te Episodic/Chronic Cardiac dysrhythmias (20 sources) Unspecified atrial fibrillation; Translations: [Paroxysmal atrial fibrillation] Onset: 2 09-06-2023 Chronic Chronic obstructive pulmonary disease and bronchiectasis (20 sources) Chronic obstructive pulmonary disease, unspecified; Translations: [Centrilobular emphysema] Onset: 2 Resolved: 4 Chronic Coagulation and hemorrhagic disorders (2 sources) Thrombophilia; Translations: [Other thrombophilia] 07-24-2024 Chronic Complication of device; implant or graft (1 source) 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; Translations: [Pain due to internal orthopedic prosthetic devices, implants and grafts, initial encounter] 05-22-2024 Episodic Conduction disorders (20 sources) Presence of cardiac pacemaker; Translations: [Sinus node dysfunction] Onset: 1 03-01-2024 Chronic Congestive heart failure; nonhypertensive (17 sources) Chronic diastolic (congestive) heart failure; Translations: [Congestive heart failure] Onset: 3 03-01-2024 Chronic Coronary atherosclerosis and other heart disease (19 sources) Atherosclerotic heart disease of [place] coronary artery without angina pectoris; Translations: [Coronary atherosclerosis] Onset: 2 09-06-2023 Chronic Deficiency and other anemia (20 sources) Iron deficiency anemia due to blood loss; Translations: [Iron deficiency anemia secondary to blood loss (chronic)] Onset: 4 03-12-2024 Chronic Deficiency and other anemia (2 sources) Iron deficiency anemia; Translations: [Iron deficiency anemia, unspecified] Onset: 4 Episodic Deficiency and other anemia (18 sources) 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; Translations: [Other specified anemias] Onset: 4 07-05-2024 Episodic Disorders of lipid metabolism (1 source) Hyperlipidemia, unspecified; Translations: [HYPERLIPIDEMIA UNSPECIFIED] Onset: 3 Chronic Diverticulosis and diverticulitis (14 sources) Diverticulosis of sigmoid colon; Translations: [Diverticulosis of large intestine without perforation or abscess without bleeding] Onset: 4 07-05-2024 Chronic Esophageal disorders (2 sources) Gastroesophageal reflux disease without esophagitis; Translations: [Gastro-esophageal reflux disease without esophagitis] Onset: 4 Chronic Essential hypertension (19 sources) Essential hypertension; Translations: [Essential (primary) hypertension] Onset: 2 09-06-2023 Chronic Gastroduodenal ulcer (except hemorrhage) (20 sources) Peptic ulcer; Translations: [Peptic ulcer, site [...] DISEASE W/HEART FAIL] Onset: 3 Chronic Lymphadenitis (14 sources) Axillary lymphadenopathy; Translations: [Localized enlarged lymph nodes] Onset: 4 07-05-2024 Episodic Mood disorders (1 source) Depressive disorder 01-11-2023 Chronic Comment on above: Per pt she had a armando ght of depresseion after her but she denies any chronic depression. Nausea and vomiting (4 sources) Nausea; Translations: [Nausea] 07-24-2024 Episodic Nonspecific chest pain (1 source) Chest pain, unspecified; Translations: [CHEST PAIN UNSPECIFIED] Onset: 3 Episodic Nutritional deficiencies (15 sources) Vitamin D deficiency; Translations: [Vitamin D deficiency, unspecified] Onset: 3 01-10-2023 Chronic Osteoarthritis (20 sources) Arthritis of acromioclavicular joint; Translations: [Primary osteoarthritis, right shoulder] Onset: 3 09-06-2023 Chronic Other aftercare (4 sources) Encounter for therapeutic drug level monitoring; Translations: [[facility] DRUG LEVL MONITORING] Onset: 3 Episodic Other aftercare (1 source) FPC (current) use of anticoagulants; Translations: [CORRECTION CURRNT USE 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] Onset: 3 Episodic Other aftercare (1 source) Other dedicated intermodal truck driver (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) drug therapy; Translations: [OTH CORRECTION CURRENT DRUG THERAPY] Onset: 3 Episodic Other and ill-defined heart disease (14 sources) Diastolic dysfunction; Translations: [Other ill-defined heart diseases] Onset: 4 02-27-2024 Chronic Other connective tissue disease (4 sources) Radicular pain; Translations: [Neuralgia and neuritis, unspecified] 07-05-2024 Episodic Other gastrointestinal disorders (14 sources) Irritable bowel syndrome; Translations: [Irritable bowel [...] NEC] Onset: 3 Chronic Other liver diseases (16 sources) Steatosis of liver; Translations: [Fatty (change [...] Chronic Other nutritional; endocrine; and metabolic disorders (16 sources) Hypocalcemia; Translations: [Hypocalcemia] Onset: 3 09-06-2023 Chronic Other nutritional; endocrine; and metabolic disorders (17 sources) Obesity; Translations: [Obesity, unspecified] Onset: 3 09-06-2023 Chronic Other nutritional; endocrine; and metabolic disorders (1 source) Body mass index 40+ - severely obese 03-02-2024 Chronic Other nutritional; endocrine; and metabolic disorders (1 source) Obese class III 03-02-2024 Chronic Other screening for suspected conditions (not mental disorders or infectious disease) (16 sources) Ultrasound scan abnormal; Translations: [Abnormal findings on diagnostic imaging of other specified body structures] Onset: 4 07-05-2024 Chronic Other screening for suspected conditions (not mental disorders or infectious disease) (10 sources) Abnormal coagulation profile; Translations: [Encounter for screening mammogram for malignant neoplasm of breast] Onset: 2 Episodic Other upper respiratory infections (5 sources) Acute sinusitis, unspecified; Translations: [Acute sinusitis] Onset: 3 07-05-2024 Episodic Pulmonary heart disease (11 sources) Pulmonary hypertension; Translations: [Pulmonary hypertension, unspecified] Onset: 4 07-24-2024 Chronic Residual codes; unclassified (5 sources) Obstructive sleep apnea (adult) (pediatric); Translations: [OBSTRUCTIVE SLEEP APNEA] Onset: 2 Chronic Residual codes; unclassified (9 sources) Obstructive sleep apnea syndrome; Translations: [Obstructive sleep apnea (adult) (pediatric)] Onset: 4 07-24-2024 Chronic Residual codes; unclassified (2 sources) H/O: [...] Date Documented Da te Episodic/Chronic Abdominal hernia (16 sources) Diaphragmatic hernia; Translations: [Diaphragmatic hernia without obstruction or gangrene] Onset: 10-17-2023 Episodic Fracture of lower limb (18 sources) Closed fracture of fifth metatarsal bone; Translations: [Displaced fracture of fifth metatarsal bone, left foot, initial encounter for closed fracture] Onset: 11-07-2023 11-07-2023 Episodic Mood disorders (15 sources) Mood disorders Onset: 09-06-2023 09-06-2023 Other circulatory disease (15 sources) Vascular insufficiency; Translations: [Venous insufficiency (chronic) (peripheral)] Onset: 03-01-2023 01-10-2023 Episodic Other connective tissue disease (2 sources) Pain of left hand; Translations: [Pain in left hand] Episodic Other connective tissue disease (2 sources) Pain in left foot; Translations: [Pain in left foot] Episodic Other connective tissue disease (16 sources) Impingement syndrome of right shoulder region; Translations: [Impingement syndrome of right shoulder] Onset: 11-07-2023 11-07-2023 Episodic Other connective tissue disease (14 sources) Disorder of bursa of shoulder region; [...] Onset: 02-25-2022 Episodic Other non-traumatic joint disorders (18 sources) Shoulder pain; Translations: [Pain in left shoulder] Onset: 10-17-2023 10-17-2023 Episodic Other non-traumatic joint disorders (2 sources) Knee pain; Translations: [Pain in left knee] Episodic Other non-traumatic joint disorders (15 sources) Pain in left knee; Translations: [Pain in joint, lower leg] Onset: 09-06-2023 09-06-2023 Episodic Residual codes; unclassified (17 sources) Edema; Translations: [Edema, unspecified] Onset: 01-12-2012 09-06-2023 Episodic Spondylosis; intervertebral disc disorders; other back problems (20 sources) Cervical radiculopathy; Translations: [Radiculopathy, cervical region] Onset: 03-01-2023 09-06-2023 Episodic Superficial injury; contusion (16 sources) Contusion of shoulder region; Translations: [Contusion of left shoulder, initial encounter] Onset: 11-07-2023 11-07-2023 Episodic Unclassified (1 source) LOW BACK PAIN, UNSPECIFIED; Translations: [LOW BACK PAIN, UNSPECIFIED] Onset: 01-28-2023 Unclassified (1 source) COUGH, UNSPECIFIED; Translations: [COUGH, UNSPECIFIED] Onset: 03-30-2022 Results Test Name Value Interpretation Reference Range Facility TRANSFERRINon 07-25-2024 Transferrin [Mass/Vol] 284 mg/dL 192 - 364 mg/dL [facility] Comment on above: Performed at: [place] [id number] Editor At Large: Baudilio Givens PhD, Phone: [phone] [facility] ALL CBC WITH AUTO DIFFon BASOPHILS ABSOLUTE AUTO 0.1 [facility] Basophils/100 WBC (Bld) 0.9 % 0.2 - 2.0 % [facility] Eosinophils/100 WBC (Bld) 0.9 % 0.9 - 7.0 % [facility] Erythrocyte distribution width (RBC) [Ratio] 17.7 % High 11.0 - 15.0 % [facility] Hematocrit (Bld) [Volume fraction] 29.9 % Low 36.0 - 48.0 % [facility] Hemoglobin (Bld) [Mass/Vol] 8.7 g/dL Low 12.0 - 16.0 g/dL [facility] IMMATURE GRANULOCYTES ABS AUTO 0.03 [facility] Immature granulocytes/100 WBC (Bld) 0.3 % 0.0 - 0.5 % [facility] Interpretation and review of laboratory results Abnormal [facility] LYMPHOCYTES ABSOLUTE AUTO 1.4 [facility] Lymphocytes/100 WBC (Bld) 14.1 % Low 20.5 - 60.0 % [facility] MCH (RBC) [Entitic mass] 22.3 pg Low 26.7 - 34.0 pg [facility] MCHC (RBC) [Mass/Vol] 29.1 g/dL Low 29.9 - 35.2 g/dL [facility] MCV (RBC) [Entitic vol] 76.7 fL Low 81.0 - 99.0 fL [facility] MONOCYTES ABSOLUTE AUTO 0.7 [facility] Monocytes/100 WBC (Bld) 6.6 % 1.7 - 12.0 % [facility] NEUTROPHILS ABSOLUTE AUTO 7.7 High [facility] Neutrophils/100 WBC (Bld) 77.2 % High 43.0 - 75.0 % [facility] Platelet mean volume (Bld) [Entitic vol] 9.3 fL Low 9.5 - 13.5 fL [facility] TBH EO # 0.1 [facility] TB PLT 328 [facility] RBC 3.9 Low [facility] WBC 10 [facility] METRO IRON AND TIBCon 2023 Interpretation and review of laboratory results Abnormal [facility] IRON 17 ug/dL Low 50.0 - 170.0 ug/dL [facility] PERCENT IRON SATURATION 4.5 % [facility] TOTAL IRON BINDING CAPACITY 381 ug/dL 250.0 - 450.0 ug/dL [facility] Follow-up visit [id number] Breann Starks 1945 F Date Provider Department Center 07/18/2024 [id number] ALTMAN Family History Adopted: Yes Family history unknown: Yes Family Status - Relation Status Age at Mother Father Level of Service:06286 CO OFFICE/OUTPATIENT ESTABLISHED MOD MDM 30 MIN Reason for Visit and Comments: Atrial Fibrillation [80] PACEMAKER [Other] Coronary Artery Disease [187] Hypertension [610965] Sinus node dysfunction [Other] - HAS [employer] Obesity [[id number]] Edema [[id number]] Normal [facility] CNOVon 05-22-2024 CNOV Office Visit (LOORRM) BREANN STARKS ([id number]) 1945 F Date Time Provider Department 05/22/24 [...] She was recommended for second opinion at [facility]. She also had a CRP and [...] No date: COPD (chronic obstructive pulmonary disease) ([facility]) SOCIAL HISTORY: Tobacco Use: Never EXAMINATION: GENERAL: [...] 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 ([facility]) T84.84XA CT SHOULDER WO IVCON LEFT Z96.612 [...] I ordered (more content not included)... Normal [facility] XR SHLDR 4V AP/HECTOR/LAT/OUTLE T LTon 05-22-2024 [...] other significant abnormality. IMPRESSION: EXPECTED POSTOPERATIVE APPEARANCE Central Sterile Supply Technician: STEVE Transcribe Date/Time: May 22 2024 2:42P Dictated by : VILMA ABREU MD This examination was interpreted and the report reviewed and electronically signed by: VILMA ABREU MD on May 22 2024 2:42PM EST [id number] Normal [facility] XR Shoulder - left 4 Viewson 05-22-2024 IMPRESSION: EXPECTED POSTOPERATIVE APPEARANCE Central Sterile Supply Technician: PSCB Transcribe Date/Time: May 22 2024 2:42P [...] other significant abnormality. DIVISION OF RADIOLOGY Provider, [facility] [place] - 05/22/2024 * * *Final Report* * [...] significant abnormality. IMPRESSION IMPRESSION: EXPECTED POSTOPERATIVE APPEARANCE Central Sterile Supply Technician: STEVE Transcribe Date/Time: May 22 2024 2:42P Dictated by : VILMA ABREU MD This examination was interpreted and the report reviewed and electronically signed by: VILMA ABREU MD on May 22 2024 2:42PM [facility] Radiology Study observation (narrative) [facility] XR Shoulder - left 4 ViewsOr dered By: [facility] Provider on 05-22-2024 [facility] NM bone 3 phaseon 05-02-2024 [place] bone 3 phase [facility] [place] [address] Nuclear Medicine Report Signed Patient: Breann Starks MR#: [id number] : 1945 Acct:[id number] Age/Sex: 78 / F ADM Date: 05/02/24 Loc: RAS Room: Type: [facility] Attending Dr: Pedro Pablo Cruz PA-C Copies to: YOLY Sanon Jeffrey S DO Ordering Provider: Pedro Pablo Cruz PA-C Date of Service: 05/02/24 NM/NM bone 3 phase: M25.512, Z96.612 Nuclear medicine [...] Etienne Rhodes M.D.05/02/2024 2:44 PM Dictation Location: [place] [address] Transcribed By: [facility] 05/02/24 1444 Dictated By: Etienne Rhodes DO 05/02/24 1440 Signed By: 05/02/24 1444 Normal [facility] Lab Reportson 03-07-2024 Lab Reports [id number] #1.00TIFF Normal [facility] 36on 03-06-2024 36 Echo from 03/05/2024 [...] to her pharmacy. BMP order faxed to [facility]. Breann verbalized understanding. Normal [facility] Consent for Procedure/Surger yon 03-05-2024 Consent for Procedure/Surgery [id number] #1.00TIFF Normal [facility] Ambulatory Visit Summaryon 0 03-02-2024 Ambulatory Visit Summary BREANN STARKS :1945 Visit Date:03/02/2024 Ambulatory Visit Instructions Your Care Team Attending Physician - CATHERINE CUBA, Ortega Bishop Primary Care Physician - Cate JUÁREZ, Barbara Lemus Referring Physician - CIRA CUBA, SAHU This [...] you for choosing us for your care. [facility] ED Note-Physicianon 03-02-20 ED Note-Physician [id number]# 1.00TIFF [facility] [facility] Insurance Correspondenceon 0 03-02-2024 Insurance Correspondence [id number]#1.00TIFF Normal [facility] Lab Reportson 03-02-2024 Lab Reports [id number] #1.00TIFF Normal [facility] 36on 01-25-2024 36 Patient called stating ever since her device was adjusted last month she's had this weird feeling in her throat. I called Sony Asif from [employer] and he told me this feeling she's having should not be from her device. Patient informed. I suggested she see PCP for this. She verbalized understanding. Normal [facility] Office Visiton 01-17-2024 Follow-up visit [id number] Breann Starks 1945 F Date Provider Department Center 01/17/2024 NICANOR REGAN Family History Adopted: Yes Family history unknown: Yes Family Status - Relation Status Age at Mother Father Level of Service:44076 CO OFFICE/OUTPATIENT ESTABLISHED MOD MDM 30 MIN Reason for Visit and Comments: Atrial Fibrillation [80] Normal [facility] XR lumbar spine 6V w bending on 11-16-2023 XR lumbar spine 6V w bending [facility] [place] [address] [place] [address] XRay Report Signed Patient: Breann Starks MR#: [id number] : 1945 Acct:[id number] Age/Sex: 77 / F ADM Date: 11/16/23 Loc: XD Room: Type: [facility] Attending Dr: Kayley DESIR Copies to: [...] Benton Jr., D.OMeena11/16/2023 4:37 PM Dictation Location: [place] [address] Transcribed By: [facility] 11/16/23 1637 Dictated By: Francisco J Benton Jr, DO 11/16/23 1636 Signed By: 11/16/23 1637 Normal [facility] MR lumbar spine wo conon MR lumbar spine wo con [facility] [place] [address] [place] [address] XRay Report Signed Patient: Breann Starks MR#: [id number] : 1945 Acct:[id number] Age/Sex: 77 / F ADM Date: 10/11/23 Loc: MR Room: Type: [facility] Attending Dr: Claire DESIR Copies to: THANG Porter Ordering Provider: THANG Porter Date of Service: 10/11/23 MR/MR lumbar spine wo con: LUMBAR RADICULPATHY ([id number]) XR/XR pre/post mri xray: LUMBAR RADICULPATHY CLINICAL [...] Eleanor Reece M.D.10/11/2023 4:10 PM Dictation Location: [place] [address] Transcribed By: STAR 10/11/23 1610 Dictated By: Eleanor Reece MD 10/11/23 1133 Signed By: 10/11/23 1610 Normal [facility] XR LSPINE W_OBLS AND FLEX_EX [...] by: PAULA BROWN Date: 2023-01-31 11:34 Normal [facility] LIPID PROFILEon 12-16-2022 CHOL-HDL RATIO NORM SEE BELOW Normal [facility] Comment on above: Result Comment: 3.3 - 4.4 LOW RISK 4.4 - 7.1 AVERAGE RISK 7.1 - 11.0 MODERATE RISK >11.0 HIGH RISK Performed By: #### L IPID ####[facility] Zoapyhhjvh07[address] [place] [id number]. Erasmo Smith Cholesterol [Mass/Vol] 105 mg/dL Normal <=200 [facility] Comment on above: Performed By: #### L IPID ####[facility] Tiglkfwmjy5193 [place] [id number]. Erasmo Smith Cholesterol in HDL [Mass/Vol] 48 mg/dL Normal 40-60 [facility] Comment on above: Performed By: #### L IPID ####[facility] Trpygpuqjx4970 [place] [id number]. Erasmo Smith Cholesterol in LDL [Mass/Vol] 48.2 mg/dL Normal [facility] Comment on above: Performed By: #### L IPID ####[facility] Igmmizunuq8577 [place] [id number]. Erasmo Smith Cholesterol.total/Chol esterol in HDL [Mass ratio] 2.2 {ratio} Normal [facility] Comment on above: Performed By: #### L IPID ####[facility] Eaxwyfebbp5915 [place] [id number]. Erasmo Smith HDL NORMAL > or = 60 mg/dl - LOW CARDIOVASCULAR RISK <40 mg/dl - HIGH CARDIOVASCULAR RISK Normal [facility] Comment on above: Performed By: #### L IPID ####[facility] Javzpfykoe7663 [place] [id number]. Erasmo Smith LDL CALC NORMAL SEE BELOW Normal [facility] Comment on above: Result Comment: <100 mg/dl OPTIMAL 100 - 129 mg/dl NEAR OR ABOVE OPTIMAL 130 - 159 mg/dl BORDERLINE HIGH 160 - 189 mg/dl HIGH >190 mg/dl VERY HIGH Performed By: #### L IPID ####[facility] Cfzzdglaqm0282 [place] [id number]. Erasmo Smith Triglyceride [Mass/Vol] 44 mg/dL Normal <=150 [facility] Comment on above: Performed By: #### L IPID ####[facility] Hsozwrulgg6[address] [place] [address]DrMeena Smith VLDL CALC 8.8 mg/dL Normal [facility] Comment on above: Performed By: #### L IPID ####[facility] Sceicahgbb[address] [place] [address]Dr. Erasmo Smith CULTURE BLOODon 12-04-2022 Microscopic examination [...] F Trimethoprim/Sulfame thoxazole <=20 S F Normal [facility] Comment on above: Performed By: #### B LDCX1 ####[facility] Cyun[address] [place], [place] [address]Dr. Erasmo Smith BNPon 12-03-2022 Natriuretic peptide B (Bld) [Mass/Vol] 413.0 pg/mL Normal <=1,800.0 [facility] Comment on above: Performed By: #### B SCHEDULING CLERK #### [facility] [address] [place] [address] [address] Erasmo Smith CBC AUTO DIFFon 12-03-2022 BASO # 0.0 103/ul Normal 0.0-0.1 [facility] Comment on above: Performed By: #### C BC ####[facility] [address] [place], [place] [address]DrMeena Smith Basophils/100 WBC (Bld) 0.2 % Normal 0.2-2.0 [facility] Comment on above: Performed By: #### C BC ####[facility] Dlbjsnacks13[address] [place] [address]Dr. Erasmo Smith EO # 0.4 103/ul Normal 0.0-0.7 [facility] Comment on above: Performed By: #### C BC ####[facility] Qjuzpvbvsh84[address] [place] [address]Dr. Erasmo Smith Eosinophils/100 WBC (Bld) 2.1 % Normal 0.9-7.0 [facility] Comment on above: Performed By: #### C BC ####[facility] Affqwitdty6[address] [place] [address]Dr. Erasmo Smith Erythrocyte distribution width (RBC) [Ratio] 17.2 % Critically high 11.0-15.0 [facility] Comment on above: Performed By: #### C BC ####[facility] Mlmreicafl[address] [place] [address]Dr. Erasmo Smith Hematocrit (Bld) [Volume fraction] 29.2 % Critically low 36.0-48.0 The [facility] Comment on above: Performed By: #### C BC ####[facility] Fjdktlhbuy57[address] [place] [address]Dr. Erasmo Smith Hemoglobin (Bld) [Mass/Vol] 9.5 g/dL Critically low 12.0-16.0 The [facility] Comment on above: Performed By: #### C BC ####[facility] Mlwjvgfirn[address] [place] [address]Dr. Erasmo Smith IG # 0.13 10e3/ul Critically high 0.00-0.03 [facility] Comment on above: Performed By: #### C BC ####[facility] Vsfufdayfg8[address] [place] [address]Dr. Erasmo Smith IG % 0.8 % Critically high 0.0-0.5 [facility] Comment on above: Performed By: #### C BC ####[facility] Rhxzwqfhpe99[address] [place] [address]Dr. Erasmo Smith LYMPH # 1.8 103/ul Normal 1.2-3.8 [facility] Comment on above: Performed By: #### C BC ####[facility] Rqslnjzlya3409 [place] [id number]. Erasmo Smith Lymphocytes/100 WBC (Bld) 10.3 % Critically low 20.5-60.0 The [facility] Comment on above: Performed By: #### C BC ####[facility] Dcwghlfwkf7278 [place] [id number]. Erasmo Smith MANUAL DIFF REQ NO Normal [facility] Comment on above: Performed By: #### C BC ####[facility] Vvbtzrtsxd8678 [place] [id number]. Erasmo Smith MCH (RBC) [Entitic mass] 25.7 pg Critically low 26.7-34.0 The [facility] Comment on above: Performed By: #### C BC ####[facility] [address]dsajbjd[address] [place] [address]Dr. Erasmo Smith MCHC (RBC) [Mass/Vol] 32.5 g/dL Normal 29.9-35.2 The [facility] Comment on above: Performed By: #### C BC ####[facility] Jsfnmagybx69[address] [place] [address]Dr. Erasmo Smith MCV (RBC) [Entitic vol] 79.1 fL Critically low 81.0-99.0 The [facility] Comment on above: Performed By: #### C BC ####[facility] Hi[address]zfdsxv[address] [place], [place] [address]Dr. Erasmo Smith MONO # 1.5 103/ul Critically high 0.3-0.8 [facility] Comment on above: Performed By: #### C BC ####[facility] I[address] [place], [place] [address]Dr. Erasmo Smith Monocytes/100 WBC (Bld) 8.7 % Normal 1.7-12.0 The [facility] Comment on above: Performed By: #### C BC ####[facility] [address] [place], [place] [address]Dr. Erasmo Smith NEUT # 13.4 103/ul Critically high 1.4-6.5 The [facility] Comment on above: Performed By: #### C BC ####[facility] Yscbpafpfm9572 [place] [id number]. Erasmo Smith Neutrophils/100 WBC (Bld) 77.9 % Critically high 43.0-75.0 [facility] Comment on above: Performed By: #### C BC ####[facility] Qxaafszibx4540 [place] [id number]. Erasmo Smith Platelet mean volume (Bld) [Entitic vol] 9.3 fL Critically low 9.5-13.5 [facility] Comment on above: Performed By: #### C BC ####[facility] Aphvbzjgmm5[address] [place] [id number]. Erasmo Smith PLT 205 103/ul Normal 150-450 [facility] Comment on above: Performed By: #### C BC ####[facility] Bizfjmfpga8964 [place] [id number]. Erasmo Smith RBC 3.69 106/ul Critically low 4.20-5.40 [facility] Comment on above: Performed By: #### C BC ####[facility] Xmpkdiihka26[address] [place] [id number]. Erasmo Smith WBC 17.2 103/ul Critically high 4.0-11.0 [facility] Comment on above: Performed By: #### C BC ####[facility] Saxzgepccx3836 [place] [id number] Smith MAGNESIUMon 12-03-2022 Magnesium [Mass/Vol] 1.9 mg/dL Normal 1.8-2.4 [facility] Comment on above: Performed By: #### B SCHEDULING CLERK #### [facility] [address] [place] [address] [address] Erasmo Smith PROF 14(COMP METB)on 023 Albumin [Mass/Vol] 2.6 g/dL Critically low 3.4-5.0 [facility] Comment on above: Performed By: #### B SCHEDULING CLERK #### [facility] [address] [place] [address] [address] Erasmo Smith Albumin/Globulin [Mass ratio] 0.6 {ratio} Normal [facility] Comment on above: Performed By: #### B SCHEDULING CLERK #### [facility] [address] [place] [address] [address] Erasmo Smith ALP [Catalytic activity/Vol] 123 U/L Critically high 46-116 [facility] Comment on above: Performed By: #### B SCHEDULING CLERK #### [facility] [address] [place] [address] [address] Erasmo Smith ALT [Catalytic activity/Vol] 28 U/L Normal 14-59 [facility] Comment on above: Performed By: #### B SCHEDULING CLERK #### [facility] [address] [place] [address] Dr. Erasmo Smith Anion gap [Moles/Vol] 9.4 mmol/L Normal [facility] Comment on above: Performed By: #### B SCHEDULING CLERK #### [facility] [address] [place] [address] Dr. Erasmo Smith AST [Catalytic activity/Vol] 21 U/L Normal 15-37 [facility] Comment on above: Performed By: #### B SCHEDULING CLERK #### [facility] [address] [place] [address] Dr. Erasmo Smith Bilirubin [Mass/Vol] 0.3 mg/dL Normal 0.2-1.0 [facility] Comment on above: Performed By: #### B SCHEDULING CLERK #### [facility] [address] [place] [address] Dr. Erasmo Smith Calcium [Mass/Vol] 8.3 mg/dL Critically low 8.5-10.1 Th [facility] Comment on above: Performed By: #### B SCHEDULING CLERK #### [facility] [address] [place] [address] Dr. Erasmo Smith Chloride [Moles/Vol] 105 mmol/L Normal 98-107 [facility] Comment on above: Performed By: #### B SCHEDULING CLERK #### [facility] [address] [place] [address] Dr. Erasmo Smith CO2 [Moles/Vol] 27.1 mmol/L Normal 21.0-32.0 [facility] Comment on above: Performed By: #### B SCHEDULING CLERK #### [facility] [address] [place] [address] Dr. Erasmo Smith Creatinine [Mass/Vol] 0.55 mg/dL Normal 0.55-1.02 [facility] Comment on above: Performed By: #### B SCHEDULING CLERK #### [facility] [address] [place] [address] Dr. Erasmo Smith EGFR-AF MAURITIAN >60 Normal >=60 [facility] Comment on above: Performed By: #### B SCHEDULING CLERK #### [facility] [address] [place] [address] Dr. Erasmo Smith EGFR-NON AF MAURITIAN >60 Normal >=60 [facility] Comment on above: Performed By: #### B SCHEDULING CLERK #### [facility] [address] [place] [address] Dr. Erasmo Smith Globulin (S) [Mass/Vol] 4.0 g/dL Normal [facility] Comment on above: Performed By: #### B SCHEDULING CLERK #### [facility] [address] [place] [address] Dr. Erasmo Smith Glucose [Mass/Vol] 132 mg/dL Critically high 74-106 [facility] Comment on above: Performed By: #### B SCHEDULING CLERK #### [facility] [address] [place] [address] Dr. Erasmo Smith Potassium [Moles/Vol] 3.5 mmol/L Normal 3.5-5.1 [facility] Comment on above: Performed By: #### B SCHEDULING CLERK #### [facility] [address] [place] [address] Dr. Erasmo Smith Protein [Mass/Vol] 6.6 g/dL Normal 6.4-8.2 [facility] Comment on above: Performed By: #### B SCHEDULING CLERK #### [facility] [address] [place] [address] Dr. Erasmo Smith Sodium [Moles/Vol] 138 mmol/L Normal 136-145 [facility] Comment on above: Performed By: #### B SCHEDULING CLERK #### [facility] [address] [place] [address] Dr. Erasmo Smith Urea nitrogen [Mass/Vol] 24.0 mg/dL Critically high 7.0-18.0 [facility] Comment on above: Performed By: #### B SCHEDULING CLERK #### [facility] [address] [place] [address] [address] Erasmo Smith Urea nitrogen/Creatinine [Mass ratio] 43.6 mg/mg Normal [facility] Comment on above: Performed By: #### B SCHEDULING CLERK #### [facility] [address] [place] [address] [address] Erasmo Smith PROTIMEon 12-03-2022 INR Coag (PPP) [Relative time] 4.41 {INR} Critically high The [facility] Comment on above: Performed By: #### C MREP #### [facility] [address] [place] [address] Dr. Erasmo Smith INR GUIDELINES SEE BELOW Normal The [facility] Comment on above: Result Comment: ABNER RED INR: 2.0 - 3.0 CONDITIONS NOT LISTED BELOW 2.5 - 3.5 FOR PROSTHETIC HEART VALVE REPLACEMENT 2.5 - 3.5 RECURRENT THROMBOSIS Performed By: #### C MREP #### [facility] [address] [place] [address] Dr. Erasmo Smith PT Coag (PPP) [Time] 43.0 s Critically high 9.0-11.6 [facility] Comment on above: Performed By: #### C MREP #### [facility] [address] [place] [address] Dr. Erasmo Smith BLOOD CULTURE ID PANELon A. baumannii Not detected Normal NOT DETECTED The [facility] Comment on above: Performed By: #### B CID2 ####[facility] Ms[address]hzda[address] [place] [address]DrMeena Smith Bacteriodes fragilis Not detected Normal NOT DETECTED The [facility] Comment on above: Performed By: #### B CID2 ####[facility] Hjkhjupepi8[address] [place] [phone] Smith BCID CONTROLS PASSED Normal The [facility] Comment on above: Performed By: #### B CID2 ####[facility] Ixreqrpsye0856 [place] [id number]. Erasmo Smith BCIDBTHD BLOOD CULTURE BOTTLE INFORMATION Normal [facility] Comment on above: Performed By: #### B CID2 ####[facility] [address]qsnphz[address] [place] [address]Dr. Yiean Smith BCIDHD1 ANTIMICROBIAL RESISTANCE GENES Normal [facility] Comment on above: Performed By: #### B CID2 ####[facility] R[address]bern[address] [place], [place] [address]Dr. Yiean Smith BCIDHD2 SEE BELOW Normal [facility] Comment on above: Result Comment: Note : Antimicrobial resitance can occur via multiple mechanisms. A Not Detected result for the [employer] antomicrobial resistance gene assays does not indicate antimicrobial susceptibility. Subculturing is required for species identification and susceptibility testing of isolates. Performed By: #### B CID2 ####[facility] Aw[address] [place], [place] [address]Dr. Erasmo Smith BCIDHD3 Positive The [facility] Comment on above: Performed By: #### B CID2 ####[facility] [address] [place], [place] [address]Dr. Yiean Smith BCIDHD4 Negative Normal [facility] Comment on above: Performed By: #### B CID2 ####[facility] [address]rv[address] [place], [place] [address]Dr. Yiean Smith BCIDHD5 YEAST Normal [facility] Comment on above: Performed By: #### B CID2 ####[facility] [address] [place], [place] [address]Dr. Yilan Smith Bottle Set: Set 1 Normal [facility] Comment on above: Performed By: #### B CID2 ####[facility] [address]ax[address]xhjj[address] [place], [place] [address]Dr. Yilan Smith Bottle: Anaerobic Normal [facility] Comment on above: Performed By: #### B CID2 ####[facility] Tyxotzvwzq[address] [place], [place] [address]Dr. Yilan Smith C. neoformans/gattii Not detected Normal NOT DETECTED The [facility] Comment on above: Performed By: #### B CID2 ####[facility] Lmjkpfydur80[address] [place] [id number]. Yilan Smith Naye albicans Not detected Normal NOT DETECTED The [facility] Comment on above: Performed By: #### B CID2 ####[facility] Kesowatrcg[address] [place] [address]Dr. Yilan Smith Naye auris Not detected Normal NOT DETECTED [facility] Comment on above: Performed By: #### B CID2 ####[facility] Ofjbsxjvux2[address] [place] [address]Dr. Yilan Smith Naye glabrata Not detected Normal NOT DETECTED The [facility] Comment on above: Performed By: #### B CID2 ####[facility] Hopnkuecsq[address] [place], [place] [address]Dr. Yilan Smith Naye Krusei Not detected Normal NOT DETECTED The [facility] Comment on above: Performed By: #### B CID2 ####[facility] [address]wjg[address] [place], [place] [address]Dr. Yilan Smith Naye Parapsilosis Not detected Normal NOT DETECTED The [facility] Comment on above: Performed By: #### B CID2 ####[facility] [address]jss[address] [place], [place] [address]Dr. Yilan Smith Naye Tropicalis Not detected Normal NOT DETECTED [facility] Comment on above: Performed By: #### B CID2 ####[facility] [address]grz[address] [place], [place] [address]Dr. Erasmo Smith CTX-M Resistant Gene Not Applicable Normal NOT DETECTE D [facility] Comment on above: Performed By: #### B CID2 ####[facility] Bodrxrvjbk[address] [place] [address]Dr. Yilan Smith E. Cloacae complex Not detected Normal NOT DETECTED [facility] Comment on above: Performed By: #### B CID2 ####[facility] Zxsmypxqki34[address] [place] [address]Dr. Yilan Smith E. faecalis Not detected Normal NOT DETECTED [facility] Comment on above: Performed By: #### B CID2 ####[facility] [address]yheiusgs[address] [place], [place] [address]Dr. Erasmo Smith E. faecium Not detected Normal NOT DETECTED The [facility] Comment on above: Performed By: #### B CID2 ####[facility] Idawbbfnfb[address] [place], [place] [address]Dr. Erasmo Smith Enterobacteriaceae Detected Critically abnormal NOT DETECTED The [facility] Comment on above: Performed By: #### B CID2 ####[facility] Hgvewhhytt[address] [place], [place] [address]Dr. Erasmo Smith Escherichia coli Detected Critically abnormal NOT DETECTED The [facility] Comment on above: Performed By: #### B CID2 ####[facility] Vxujgb[address]ht[address] [place], [place] [address]Dr. Erasmo Smith H. influenzae Not detected Normal NOT DETECTED [facility] Comment on above: Performed By: #### B CID2 ####[facility] Uhgkhntdlm[address] [place], [place] [address]Dr. Erasmo Smith IMP Resistant Gene Not Applicable Normal NOT DETECTED The [facility] Comment on above: Performed By: #### B CID2 ####[facility] Hzkjjziskr[address] [place], [place] [address]Dr. Erasmo Smith K. oxytoca Not detected Normal NOT DETECTED [facility] Comment on above: Performed By: #### B CID2 ####[facility] Amyijxcgsl[address] [place], [place] [address]Dr. Erasmo Smith K. pneumoniae Not detected Normal NOT DETECTED [facility] Comment on above: Performed By: #### B CID2 ####[facility] [address]uzhg[address] [place], [place] [address]Dr. Erasmo Smith Klebsiella aerogenes Not detected Normal NOT DETECTED The [facility] Comment on above: Performed By: #### B CID2 ####[facility] Oredrtmdwm[address] [place], [place] [address]Dr. Erasmo Smith KPC Resistant Gene Not detected Normal NOT DETECTED [facility] Comment on above: Performed By: #### B CID2 ####[facility] [address]qlf[address] [place], [place] [address]Dr. Yilan Smith List. monocytogenes Not detected Normal NOT DETECTED [facility] Comment on above: Performed By: #### B CID2 ####[facility] [place] [address]sohej[address] [place] [address]Dr. Erasmo Smith Mcr-1 Resistant Gene Not Applicable Normal NOT DETECTE D [facility] Comment on above: Performed By: #### B CID2 ####[facility] [place] Urlmgdtmjg[address] [address]Dr. Erasmo Smith mecA/C Not Applicable Normal NOT DETECTED [facility] Comment on above: Performed By: #### B CID2 ####[facility] [place] Mbvgkepikh[address] [place], [place] [address]Dr. Erasmo Smith mecA/C MREJ Not Applicable Normal NOT DETECTED The [facility] Comment on above: Performed By: #### B CID2 ####[facility] [place] Jagflajywz[address] [place], [place] [address]Dr. Erasmo Smith N. meningitidis Not detected Normal NOT DETECTED The [facility] Comment on above: Performed By: #### B CID2 ####[facility] [place] Vptzzpwchp[address] [place], [place] [address]Dr. Erasmo Smith NDM Resistant Gene Not Applicable Normal NOT DETECTED The [facility] [place] Comment on above: Performed By: #### B CID2 ####[facility] [place] Grpheedjfn[address] [place], [place] [address]Dr. Erasmo Smith Oxa-48-like Not Applicable Normal NOT DETECTED [facility] Comment on above: Performed By: #### B CID2 ####[facility] [place] Jvojpiwoiw[address] [place], [place] [address]Dr. Erasmo Smith Proteus Not detected Normal NOT DETECTED The [facility] Comment on above: Performed By: #### B CID2 ####[facility] [place] Qaerlgdhuj[address] [place], [place] [address]Dr. Erasmo Smith Pseud. aeruginosa Not detected Normal NOT DETECTED The [facility] [place] Comment on above: Performed By: #### B CID2 ####[facility] [place] Ktjikzarje7[address] [place], [place] [address]Dr. Erasmo Smith S. maltophilia Not detected Normal NOT DETECTED The [facility] Comment on above: Performed By: #### B CID2 ####[facility] [place] [address]ftokwcku[address] [address]Dr. Erasmo Smith Salmonella Not detected Normal NOT DETECTED [facility] Comment on above: Performed By: #### B CID2 ####[facility] [place] Hwmyvlmvkt[address] [address]Dr. Erasmo Smith Seratia marcescens Not detected Normal NOT DETECTED [facility] Comment on above: Performed By: #### B CID2 ####[facility] [place] Uoelxhiifb[address] [place], [place] [address]Dr. Erasmo Smith Site: l ac Normal The [facility] [place] Comment on above: Performed By: #### B CID2 ####[facility] [place] Wfpbvbjgqu[address] [place], [place] [address]Dr. Erasmo Smith Staph. aureus Not detected Normal NOT DETECTED [facility] Comment on above: Performed By: #### B CID2 ####[facility] [place] Wflvgelhco[address] [place], [place] [address]Dr. Erasmo Smith Staph. epidermidis Not detected Normal NOT DETECTED [facility] Comment on above: Performed By: #### B CID2 ####[facility] [place] Kudxqgdgyv69[address] [place], [place] [address]Dr. Erasmo Smith Staph. lugdunensis Not detected Normal NOT DETECTED [facility] Comment on above: Performed By: #### B CID2 ####[facility] [place] Nqyncwffga[address] [place], [place] [address]Dr. Erasmo Smith Staphylococcus Not detected Normal NOT DETECTED The [facility] Comment on above: Performed By: #### B CID2 ####[facility] [place] Piywjblnvb[address] [place], [place] [address]Dr. Erasmo Smith Strep. agalactiae Not detected Normal NOT DETECTED The [facility] [place] Comment on above: Performed By: #### B CID2 ####[facility] [place] Vixjnmrleo8[address] [place], [place] [address]Dr. Erasmo Smith Strep. pneumoniae Not detected Normal NOT DETECTED The [facility] [place] Comment on above: Performed By: #### B CID2 ####[facility] [place] [address]tysmulldc[address] [place] [address]Dr. Erasmo Smith Strep. pyogenes Not detected Normal NOT DETECTED The [facility] Comment on above: Performed By: #### B CID2 ####[facility] [place] Y[address]zodvxp[address] [place] [address]Dr. Erasmo Smith Streptococcus Not detected Normal NOT DETECTED [facility] Comment on above: Performed By: #### B CID2 ####[facility] [place] P[address]oydajjr[address] [address]Dr. Erasmo Smith Fran/B Resist. Gene Not detected Normal NOT DETECTED [facility] Comment on above: Performed By: #### B CID2 ####[facility] [place] Vtawevyaet[address] [place], [place] [address]Dr. Erasmo Smith VIM Resistant Gene Not Applicable Normal NOT DETECTED [facility] Comment on above: Performed By: #### B CID2 ####[facility] [place] Zlhgblymte[address] [place], [place] [address]Dr. Erasmo Smith BNPon 12-02-2022 Natriuretic peptide B (Bld) [Mass/Vol] 1059.0 pg/mL Normal <=1,800.0 [facility] Comment on above: Performed By: #### B SCHEDULING CLERK #### [facility] [place] [facility] [address] [address] [address] Erasmo Smith CBC AUTO DIFFon 12-02-2022 BASO # 0.0 103/ul Normal 0.0-0.1 [facility] Comment on above: Performed By: #### C BC ####[facility] [place] [address]qyzmo[address] [place] [address]Dr. Erasmo Smith Basophils/100 WBC (Bld) 0.2 % Normal 0.2-2.0 The [facility] [place] Comment on above: Performed By: #### C BC ####[facility] [place] [address]mdxyts[address] [place] [address]Dr. Erasmo Smith EO # 0.0 103/ul Normal 0.0-0.7 The [facility] [place] Comment on above: Performed By: #### C BC ####[facility] [place] [address]qflh[address] [place] [address]Dr. Erasmo Smith Eosinophils/100 WBC (Bld) 0.0 % Critically low 0.9-7.0 The [facility] [place] Comment on above: Performed By: #### C BC ####[facility] [place] Ytkfuijuon[address] [place] [address]Dr. Erasmo Smith Erythrocyte distribution width (RBC) [Ratio] 17.3 % Critically high 11.0-15.0 The [facility] [place] Comment on above: Performed By: #### C BC ####[facility] [place] Rjwrxpbfdx[address] [place], [place] [address]Dr. Erasmo Smith Hematocrit (Bld) [Volume fraction] 31.4 % Critically low 36.0-48.0 [facility] Comment on above: Performed By: #### C BC ####[facility] [place] Sgubfwfhwk[address] [place], [place] [address]Dr. Erasmo Smith Hemoglobin (Bld) [Mass/Vol] 10.0 g/dL Critically low 12.0-16.0 [facility] Comment on above: Performed By: #### C BC ####[facility] [place] Pjdesluami[address] [place], [place] [address]Dr. Erasmo Smith IG # 0.06 10e3/ul Critically high 0.00-0.03 [facility] Comment on above: Performed By: #### C BC ####[facility] [place] Ukjenhsodz[address] [place], [place] [address]Dr. Erasmo Smith IG % 0.4 % Normal 0.0-0.5 The [facility] [place] Comment on above: Performed By: #### C BC ####[facility] [place] Hxytmjqzlw[address] [place], [place] [address]Dr. Erasmo Smith LYMPH # 1.3 103/ul Normal 1.2-3.8 The [facility] [place] Comment on above: Performed By: #### C BC ####[facility] [place] Misbmumnqa[address] [place], [place] [address]Dr. Erasmo Smith Lymphocytes/100 WBC (Bld) 8.1 % Critically low 20.5-60.0 The [facility] [place] Comment on above: Performed By: #### C BC ####[facility] [place] [address] [id number]. Heavenean Smith MANUAL DIFF REQ NO Normal [facility] Comment on above: Performed By: #### C BC ####[facility] [place] Baswsmicbv[address] [id number]. Erasmo Smith MCH (RBC) [Entitic mass] 25.6 pg Critically low 26.7-34.0 The [facility] [place] Comment on above: Performed By: #### C BC ####[facility] [place] Gazuagcecg[address] [place], [place] [address]Dr. Erasmo Smith MCHC (RBC) [Mass/Vol] 31.8 g/dL Normal 29.9-35.2 The [facility] [place] Comment on above: Performed By: #### C BC ####[facility] [place] Ifdxnlxmnv[address] [place], [place] [address]Dr. Erasmo Smith MCV (RBC) [Entitic vol] 80.3 fL Critically low 81.0-99.0 [facility] Comment on above: Performed By: #### C BC ####[facility] [place] Gnnabusobf[address] [place], [place] [address]Dr. Heavenean Luis MONO # 0.6 103/ul Normal 0.3-0.8 The [facility] [place] Comment on above: Performed By: #### C BC ####[facility] [place] Qofnqwtakm[address] [place], [place] [address]Dr. Erasmo Smith Monocytes/100 WBC (Bld) 3.7 % Normal 1.7-12.0 The [facility] [place] Comment on above: Performed By: #### C BC ####[facility] [place] [address] [place], [place] [address]Dr. Erasmo Smith NEUT # 14.5 103/ul Critically high 1.4-6.5 The [facility] Comment on above: Performed By: #### C BC ####[facility] [place] Kjibizdeil[address] [place], [place] [address]Dr. Erasmo Smith Neutrophils/100 WBC (Bld) 87.6 % Critically high 43.0-75.0 The [facility] [place] Comment on above: Performed By: #### C BC ####[facility] [place] [address] [place], [place] [address]Gt. Erasmo Smith Platelet mean volume (Bld) [Entitic vol] 10.0 fL Normal 9.5-13.5 [facility] Comment on above: Performed By: #### C BC ####[facility] [place] [address]ymf[address] [place], [place] [address]Ab. Erasmo Smith PLT 206 103/ul Normal 150-450 The [facility] [place] Comment on above: Performed By: #### C BC ####[facility] [place] T[address]dmyh4[address] [place], [place] [address]Dx. Erasmo Smith RBC 3.91 106/ul Critically low 4.20-5.40 [facility] Comment on above: Performed By: #### C BC ####[facility] [place] [address] [place], [place] [address]Vm. Erasmo Simth WBC 16.5 103/ul Critically high 4.0-11.0 The [facility] Comment on above: Performed By: #### C BC ####[facility] [place] [address] [place], [place] [address]Dv. Erasmo Smith ECHOCARDIO M/2D COMPLETEon 0 12-02-2022 ECHOCARDIO M/2D COMPLETE Patient: BREANN STARKS Exam Date: 12/02/2022 : 1945 Gender:F Ordering : KAYLEY HOLMAN . Admission #: [id number] Family : DR LUISANA JOHNSON . Order #: [id number] CLICK HERE TO VIEW EXAM ECHOCARDIOGRAM REPORT [...] Salazar M.D. on 12/02/2022 at 21:58 Normal [facility] MAGNESIUMon 12-02-2022 Magnesium [Mass/Vol] 2.0 mg/dL Normal 1.8-2.4 [facility] Comment on above: Performed By: #### B SCHEDULING CLERK #### [facility] [place] [facility] [address] [place] [address] Dr. Erasmo Smith PROF 14(COMP METB)on 023 Albumin [Mass/Vol] 2.7 g/dL Critically low 3.4-5.0 [facility] Comment on above: Performed By: #### B SCHEDULING CLERK #### [facility] [place] [facility] [address] [place] [address] Dr. Erasmo Smith Albumin/Globulin [Mass ratio] 0.6 {ratio} Normal [facility] Comment on above: Performed By: #### B SCHEDULING CLERK #### [facility] [place] [facility] [address] [place] [address] Dr. Erasmo Smith ALP [Catalytic activity/Vol] 128 U/L Critically high 46-116 [facility] Comment on above: Performed By: #### B SCHEDULING CLERK #### [facility] [place] [facility] [address] [place] [address] Dr. Erasmo Smith ALT [Catalytic activity/Vol] 34 U/L Normal 14-59 [facility] Comment on above: Performed By: #### B SCHEDULING CLERK #### [facility] [place] [facility] [address] [place] [address] Dr. Erasmo Smith Anion gap [Moles/Vol] 10.6 mmol/L Normal [facility] Comment on above: Performed By: #### B SCHEDULING CLERK #### [facility] [place] [facility] [address] [place] [address] Dr. Erasmo Smith AST [Catalytic activity/Vol] 27 U/L Normal 15-37 [facility] Comment on above: Performed By: #### B SCHEDULING CLERK #### [facility] [place] [facility] [address] [address] [address] Erasmo Smith Bilirubin [Mass/Vol] 0.5 mg/dL Normal 0.2-1.0 [facility] Comment on above: Performed By: #### B SCHEDULING CLERK #### [facility] [place] [facility] [address] [address] [address] Erasmo Smith Calcium [Mass/Vol] 8.4 mg/dL Critically low 8.5-10.1 Th [facility] Comment on above: Performed By: #### B SCHEDULING CLERK #### [facility] [place] [facility] [address] [address] [address] Erasmo Smith Chloride [Moles/Vol] 104 mmol/L Normal 98-107 [facility] Comment on above: Performed By: #### B SCHEDULING CLERK #### [facility] [place] [facility] [address] [place] [address] Dr. Erasmo Smith CO2 [Moles/Vol] 26.2 mmol/L Normal 21.0-32.0 [facility] Comment on above: Performed By: #### B SCHEDULING CLERK #### [facility] [place] [facility] [address] [place] [address] Dr. Erasmo Smith Creatinine [Mass/Vol] 0.52 mg/dL Critically low 0.55-1.02 [facility] Comment on above: Performed By: #### B SCHEDULING CLERK #### [facility] [place] [facility] [address] [place] [address] Dr. Erasmo Smith EGFR-AF MAURITIAN >60 Normal >=60 [facility] Comment on above: Performed By: #### B SCHEDULING CLERK #### [facility] [place] [facility] [address] [place] [address] Dr. Erasmo Smith EGFR-NON AF MAURITIAN >60 Normal >=60 [facility] Comment on above: Performed By: #### B SCHEDULING CLERK #### [facility] [place] [facility] [address] [place] [address] Dr. Erasmo Smith Globulin (S) [Mass/Vol] 4.3 g/dL Normal [facility] Comment on above: Performed By: #### B SCHEDULING CLERK #### [facility] [place] [facility] [address] [place] [address] Dr. Erasmo Smith Glucose [Mass/Vol] 135 mg/dL Critically high 74-106 T [facility] Comment on above: Performed By: #### B SCHEDULING CLERK #### [facility] [place] [facility] [address] [address] [address] Erasmo Smith Potassium [Moles/Vol] 3.8 mmol/L Normal 3.5-5.1 [facility] Comment on above: Performed By: #### B SCHEDULING CLERK #### [facility] [place] [facility] [address] [address] [address] Erasmo Smith Protein [Mass/Vol] 7.0 g/dL Normal 6.4-8.2 [facility] Comment on above: Performed By: #### B SCHEDULING CLERK #### [facility] [place] [facility] [address] [place] [address] Dr. Erasmo Smith Sodium [Moles/Vol] 137 mmol/L Normal 136-145 [facility] Comment on above: Performed By: #### B SCHEDULING CLERK #### [facility] [place] [facility] [address] [place] [address] Dr. Erasmo Smith Urea nitrogen [Mass/Vol] 16.0 mg/dL Normal 7.0-18.0 [facility] Comment on above: Performed By: #### B SCHEDULING CLERK #### [facility] [place] [facility] [address] [place] [address] Dr. Erasmo Smith Urea nitrogen/Creatinine [Mass ratio] 30.8 mg/mg Normal [facility] Comment on above: Performed By: #### B SCHEDULING CLERK #### [facility] [place] [facility] [address] [place] [address] Dr. Erasmo Smith PROTIMEon 12-02-2022 INR Coag (PPP) [Relative time] 4.39 {INR} Critically high [facility] Comment on above: Performed By: #### P T #### [facility] [place] [facility] [address] [place] [address] Dr. Erasmo Smith INR GUIDELINES SEE BELOW Normal [facility] Comment on above: Result Comment: ABNER RED INR: 2.0 - 3.0 CONDITIONS NOT LISTED BELOW 2.5 - 3.5 FOR PROSTHETIC HEART VALVE REPLACEMENT 2.5 - 3.5 RECURRENT THROMBOSIS Performed By: #### P T #### [facility] [place] [facility] [address] [address] [address] Erasmo Smith PT Coag (PPP) [Time] 42.8 s Critically high 9.0-11.6 [facility] [place] Comment on above: Performed By: #### P T #### [facility] [place] [facility] [address] [address] [address] Erasmo Smith UA RANDOM W/MICROSCOPICon BACTERIA NONE SEEN Normal NONE SEEN The [facility] [place] Comment on above: Performed By: #### U AMIC ####[facility] [place] [address] [address]Dr. Erasmo Smith Bilirubin Ql (U) Negative Normal NEGATIVE [facility] Comment on above: Performed By: #### U AMIC ####[facility] [place] [address] [place] [address]Dr. Erasmo Smith CAST NONE SEEN Normal NONE SEEN [facility] Comment on above: Performed By: #### U AMIC ####[facility] [place] [address]kw[address] [place] [address]Dr. Erasmo Smith Clarity (U) CLEAR Normal CLEAR [facility] [place] Comment on above: Performed By: #### U AMIC ####[facility] [place] [address]jsdp[address] [place] [address]Dr. Erasmo Smith Color (U) YELLOW Normal YELLOW [facility] [place] Comment on above: Performed By: #### U AMIC ####[facility] [place] [address]usp[address] [place] [address]Dr. Erasmo Smith Crystals LM Nom (Urine sed) NONE SEEN Normal NONE SEEN The [facility] [place] Comment on above: Performed By: #### U AMIC ####[facility] [place] [address]iran[address] [place] [address]Dr. Erasmo Smith Epithelial cells LM Ql (Urine sed) RARE Normal NONE SEEN /RARE The [facility] [place] Comment on above: Performed By: #### U AMIC ####[facility] [place] [address] [place] [address]Dr. Erasmo Smith Glucose Ql (U) Negative Normal NEGATIVE [facility] Comment on above: Performed By: #### U AMIC ####[facility] [place] [address] [place] [address]Dr. Erasmo Smith Hemoglobin Ql (U) SMALL Abnormal NEGATIVE [facility] Comment on above: Performed By: #### U AMIC ####[facility] [place] [address]apvis[address] [place] [address]Dr. Erasmo Smith Ketones Ql (U) 15 mg/dl Abnormal NEGATIVE [facility] Comment on above: Performed By: #### U AMIC ####[facility] [place] [address]fekul[address] [place] [address]Dr. Erasmo Smith LEUKOCYTES Negative Normal NEGATIVE [facility] [place] Comment on above: Performed By: #### U AMIC ####[facility] [place] [address] [place], [place] [address]Dr. Erasmo Smith MUCOUS NONE SEEN Normal NONE SEEN [facility] [place] Comment on above: Performed By: #### U AMIC ####[facility] [place] Mao[address]cywaw[address] [place], [place] [address]Dr. Erasmo Smith Nitrite Ql (U) Negative Normal NEGATIVE [facility] Comment on above: Performed By: #### U AMIC ####[facility] [place] [address]imgl[address]mw[address] [place], [place] [address]Dr. Erasmo Smith pH (U) 6.0 [pH] Normal 5-9 [facility] [place] Comment on above: Performed By: #### U AMIC ####[facility] [place] Xvcwnjfywh[address] [place], [place] [address]Dr. Erasmo Smith RBC 0-2 Normal 0-2 [facility] [place] Comment on above: Performed By: #### U AMIC ####[facility] [place] [address]ecmrxc[address] [place] [address]Dr. Erasmo Smith SPEC GRAVITY 1.025 Normal 1.005-<=1.02 5 [facility] [place] Comment on above: Performed By: #### U AMIC ####[facility] [place] [address] [place] [address]Dr. Erasmo Smith UA PROTEIN TRACE Normal NEGATIVE/ TRACE [facility] [place] Comment on above: Performed By: #### U AMIC ####[facility] [place] [address]sej[address] [place], [place] [address]ZsDr. Erasmo Smith Urobilinogen Qn (U) 4 {Shraddha'U}/dL Abnormal 0.2 - 1.0 [facility] [place] Comment on above: Performed By: #### U AMIC ####[facility] [place] [address]ks[address] [place], [place] [address]YcMeena Smith WBC 0-2 Abnormal NONE SEEN [facility] [place] Comment on above: Performed By: #### U AMIC ####[facility] [place] [address] [place] [id number] Smith CARDIAC ROSA ELENA 3-6on 3 CK [Catalytic activity/Vol] 53 U/L Normal 26-192 [facility] [place] Comment on above: Performed By: #### C MREP #### [facility] [place] [facility] [address] [address] [address] Erasmo Smith CK.MB [Mass/Vol] 0.90 ng/mL Normal <=3.60 [facility] Comment on above: Performed By: #### C MREP #### [facility] [place] [facility] [address] [address] [address] Erasmo Smith HSTROP 116.7 pg/mL Critically high 4.0-51.3 [facility] Comment on above: Result Comment: CUT- OFF POINTS HAVE BEEN ESTABLISHED BASED ON THE FOURTH UNIVERSAL DEFINITIONS OF MYOCARDIAL INFARCTION. THE UPPER REFERENCE LIMIT (URL) OF TROPONIN, DEFINED THE 99TH PERCENTILE OF cTnI DISTRIBUTION IN A REFERENCE POPULATION, HAS BEEN CONFIRMED THE DECISION THRESHOLD FOR OR DIAGNOSIS. Performed By: #### C MREP #### [facility] [place] [facility] [address] [address] [address] Erasmo Smith CK [Catalytic activity/Vol] 47 U/L Normal 26-192 [facility] [place] Comment on above: Performed By: #### B SCHEDULING CLERK #### [facility] [place] [facility] [address] [address] [address] Erasmo Smith CK.MB [Mass/Vol] 1.00 ng/mL Normal <=3.60 [facility] Comment on above: Performed By: #### B SCHEDULING CLERK #### [facility] [place] [facility] [address] [place] [address] Dr. Erasmo Smith HSTROP 154.3 pg/mL Critically high 4.0-51.3 [facility] Comment on above: Result Comment: CUT- OFF POINTS HAVE BEEN ESTABLISHED BASED ON THE FOURTH UNIVERSAL DEFINITIONS OF MYOCARDIAL INFARCTION. THE UPPER REFERENCE LIMIT (URL) OF TROPONIN, DEFINED THE 99TH PERCENTILE OF cTnI DISTRIBUTION IN A REFERENCE POPULATION, HAS BEEN CONFIRMED THE DECISION THRESHOLD FOR OR DIAGNOSIS. Performed By: #### B SCHEDULING CLERK #### [facility] [place] [facility] [address] [place] [address] Dr. Erasmo Smith CBC W MANUAL DIFFon 12-02-19 23 ATYPICAL LYMPH # Normal [facility] Comment on above: Performed By: #### C ANGELA #### [facility] [place] [facility] [address] [place] [address] Dr. Erasmo Smith ATYPICAL LYMPH % Normal [facility] Comment on above: Performed By: #### C ANGELA #### [facility] [place] [facility] [address] [place] [address] Dr. Erasmo Smith BAND # 0.6 103/ul Critically high 0.0-0.3 [facility] Comment on above: Performed By: #### C ANGELA #### [facility] [place] [facility] [address] [place] [address] Dr. Erasmo Smith BAND % 3 % Normal 0-5 [facility] Comment on above: Performed By: #### C ANGELA #### [facility] [place] [facility] [address] [place] [address] Dr. Erasmo Smith BASOM # 0.00 103/ul Normal 0.00-0.10 [facility] [place] Comment on above: Performed By: #### C ANGELA #### [facility] [place] [facility] [address] [place] [address] Dr. Erasmo Smith BASOM % 0.0 % Critically low 0.2-2.0 [facility] Comment on above: Performed By: #### C BCBLAISE #### [facility] [place] [facility] [address] [place] [address] Dr. Erasmo Smith BLAST # Normal [facility] [place] Comment on above: Performed By: #### C ANGELA #### [facility] [place] [facility] [address] [address] [address] Erasmo Smith BLAST % Normal [facility] Comment on above: Performed By: #### C ANGELA #### [facility] [place] [facility] [address] [place] [address] Dr. Erasmo Smith CORRECTED WBC Normal 4.0-11.0 [facility] Comment on above: Performed By: #### C ANGELA #### [facility] [place] [facility] [address] [address] [address] Eramso Smith EOS # 0.19 103/ul Normal 0.00-0.70 [facility] Comment on above: Performed By: #### C ANGELA #### [facility] [place] [facility] [address] [place] [address] Dr. Erasmo Smith EOS% 1.0 % Normal 0.9-7.0 [facility] Comment on above: Performed By: #### C ANGELA #### [facility] [place] [facility] [address] [place] [address] Dr. Erasmo Smith HCT 32.7 % Critically low 36.0-48.0 [facility] Comment on above: Performed By: #### C ANGELA #### [facility] [place] [facility] [address] [place] [address] Dr. Erasmo Smith HGB 10.5 g/dl Critically low 12.0-16.0 [facility] Comment on above: Performed By: #### C ANGELA #### [facility] [place] [facility] [address] [place] [address] Dr. Erasmo Smith LYMPHM # 0.76 103/ul Critically low 1.20-3.80 [facility] Comment on above: Performed By: #### C ANGELA #### [facility] [place] [facility] [address] [place] [address] Dr. Erasmo Smith LYMPHM% 4.0 % Critically low 20.5-60.0 [facility] Comment on above: Performed By: #### C ANGELA #### [facility] [place] [facility] [address] [place] [address] Dr. Erasmo Smith MCH 25.9 pg Critically low 26.7-34.0 [facility] Comment on above: Performed By: #### C BCMAN #### [facility] [place] [facility] [address] [place] [address] Dr. Erasmo Smith MCHC 32.1 g/dl Normal 29.9-35.2 [facility] Comment on above: Performed By: #### C BCBLAISE #### [facility] [place] [facility] [address] [address] [address] Erasmo Smith MCV 80.5 fL Critically low 81.0-99.0 [facility] Comment on above: Performed By: #### C BCMAN #### [facility] [place] [facility] [address] [place] [address] Dr. Erasmo Smith METAMYELOCYTE # Normal [facility] Comment on above: Performed By: #### C ANGELA #### [facility] [place] [facility] [address] [place] [address] Dr. Erasmo Smith METAMYELOCYTE % Normal [facility] Comment on above: Performed By: #### C ANGELA #### [facility] [place] [facility] [address] [place] [address] Dr. Erasmo Smith MONOM# 1.14 103/ul Critically high 0.30-0.80 [facility] Comment on above: Performed By: #### C BCBLAISE #### [facility] [place] [facility] [address] [place] [address] Dr. Erasmo Smith MONOM% 6.0 % Normal 1.7-12.0 [facility] Comment on above: Performed By: #### C BCBLAISE #### [facility] [place] [facility] [address] [place] [address] Dr. Erasmo Smith MPV 9.4 fL Critically low 9.5-13.5 [facility] Comment on above: Performed By: #### C BCMAN #### [facility] [place] [facility] [address] [place] [address] Dr. Erasmo Smith MYELOCYTE # Normal [facility] [place] Comment on above: Performed By: #### C BCBLAISE #### [facility] [place] [facility] [address] [place] [address] Dr. Erasmo Smith MYELOCYTE % Normal [facility] [place] Comment on above: Performed By: #### C ANGELA #### [facility] [place] [facility] [address] [address] [address] Erasmo Smith NRBC Normal [facility] Comment on above: Performed By: #### C ANGELA #### [facility] [place] [facility] [address] [id number] [address] Erasmo Smith PLT 195 103/ul Normal 150-450 [facility] [place] Comment on above: Performed By: #### C ANGELA #### [facility] [place] [facility] [address] [address] [address] Erasmo Smith RBC 4.06 106/ul Critically low 4.20-5.40 [facility] Comment on above: Performed By: #### C ANGELA #### [facility] [place] [facility] [address] [address] [address] Erasmo Smith RDW 17.7 % Critically high 11.0-15.0 [facility] Comment on above: Performed By: #### C ANGELA #### [facility] [place] [facility] [address] [address] [address] Erasmo Smith SEG # 16.34 103/ul Critically high 1.40-6.50 [facility] Comment on above: Performed By: #### C ANGELA #### [facility] [place] [facility] [address] [address] [address] Erasmo Smith SEG % 86.0 % Critically high 43.0-75.0 [facility] Comment on above: Performed By: #### C ANGELA #### [facility] [place] [facility] [address] [address] [address] Erasmo Smith WBC 19.0 103/ul Critically high 4.0-11.0 [facility] Comment on above: Performed By: #### C NAGELA #### [facility] [place] [facility] [address] [address] [address] HEAD WO CONon [...] SALOME MCCORMICK Date: 2022 14:50 Normal [facility] [place] CULTURE BLOODon 2022 Microscopic examination of blood, culture Culture Observations: Aerobic and Anaerobic bottle positive. BCID: E. Coli Culture Observations: Refer to for VIOLET. Isolate 1 Escherichia coli Growth of Normal [facility] [place] Comment on above: Performed By: #### B LDCX2 ####[facility] [place] [address] [address]Dr. Erasmo Smith Covid-19 PCR (CVDTBH)on 11-11 SARS-CoV-2 (COVID-19) RNA EMILY+probe Ql (Unsp spec) Not detected Normal NOT DETECTED [facility] [place] Comment on above: Result Comment: When diagnostic [...] for this test is supported by the [place] of Health and Human Service's declaration that [...] used). Performed By: #### C MREP #### [facility] [place] [facility] [address], [place] [address] Dr. Erasmo Smith LACTATE/LACTIC ACIDon 2022 Lactate [Moles/Vol] 1.2 mmol/L Normal 0.4-2.0 [facility] Comment on above: Performed By: #### L ACT ####[facility] [place] [address] [address]DrMeena Smith PH VENOUS BLOODon 2022 PCO2 VENOUS 37.8 mmHg Critically low 40.0-52.0 [facility] Comment on above: Performed By: #### P HVEN ####[facility] [place] [address] [address]Dr. Erasmo Smith pH VENOUS 7.417 Normal 7.330-7.430 [facility] Comment on above: Performed By: #### P HVEN ####[facility] [place] [address] [address]DrMeena Smith PROF 14(COMP METB)on 023 Albumin [Mass/Vol] 3.1 g/dL Critically low 3.4-5.0 [facility] Comment on above: Performed By: #### H STROPN, CMP ####[facility] [place] [address] [address]DrMeena Smith Albumin/Globulin [Mass ratio] 0.8 {ratio} Normal [facility] Comment on above: Performed By: #### H STROPN, CMP ####[facility] [place] [address] [address]Dr. Erasmo Smith ALP [Catalytic activity/Vol] 194 U/L Critically high 46-116 [facility] Comment on above: Performed By: #### H STROPN, CMP ####[facility] [place] [address] [address]Dr. Erasmo Smith ALT [Catalytic activity/Vol] 37 U/L Normal 14-59 [facility] Comment on above: Performed By: #### H STROPN, CMP ####[facility] [place] [address] [address]DrMeena Smith Anion gap [Moles/Vol] 14.6 mmol/L Normal [facility] Comment on above: Performed By: #### H STROPN, CMP ####[facility] [place] [address] [address]Dr. Erasmo Smith AST [Catalytic activity/Vol] 32 U/L Normal 15-37 [facility] Comment on above: Performed By: #### H STROPN, CMP ####[facility] [place] [address] [address]Dr. Erasmo Smith Bilirubin [Mass/Vol] 1.0 mg/dL Normal 0.2-1.0 [facility] Comment on above: Performed By: #### H STROPN, CMP ####[facility] [place] [address] [place], [place] [address]Dr. Erasmo Smith Calcium [Mass/Vol] 8.9 mg/dL Normal 8.5-10.1 [facility] Comment on above: Performed By: #### H STROPN, CMP ####[facility] [place] [address] [place], [place] [address]Dr. Erasmo Smith Chloride [Moles/Vol] 103 mmol/L Normal 98-107 [facility] Comment on above: Performed By: #### H STROPN, CMP ####[facility] [place] [address] [place], [place] [address]Dr. Erasmo Smith CO2 [Moles/Vol] 23.6 mmol/L Normal 21.0-32.0 [facility] Comment on above: Performed By: #### H STROPN, CMP ####[facility] [place] [address] [place], [place] [address]Dr. Erasmo Smith Creatinine [Mass/Vol] 0.69 mg/dL Normal 0.55-1.02 [facility] Comment on above: Performed By: #### H STROPN, CMP ####[facility] [place] [address] [place], [place] [address]Dr. Erasmo Smith EGFR-AF MAURITIAN >60 Normal >=60 [facility] Comment on above: Performed By: #### H STROPN, CMP ####[facility] [place] [address] [place], [place] [address]Dr. Yiean Smith EGFR-NON AF MAURITIAN >60 Normal >=60 [facility] [place] Comment on above: Performed By: #### H ALEXSANDER, CMP ####[facility] [place] [address] [address]Dr. Erasmo Smith Globulin (S) [Mass/Vol] 4.1 g/dL Normal [facility] Comment on above: Performed By: #### H ALEXSANDER, CMP ####[facility] [place] [address] [address]Dr. Erasmo Smith Glucose [Mass/Vol] 121 mg/dL Critically high 74-106 T [facility] Comment on above: Performed By: #### H ALEXSANDER, CMP ####[facility] [place] [address] [place], [place] [address]Dr. Erasmo Smith Potassium [Moles/Vol] 3.2 mmol/L Critically low 3.5-5.1 [facility] Comment on above: Performed By: #### H ALEXSANDER, CMP ####[facility] [place] [address] [place], [place] [address]Dr. Erasmo Smith Protein [Mass/Vol] 7.2 g/dL Normal 6.4-8.2 [facility] Comment on above: Performed By: #### H ALEXSANDER, CMP ####[facility] [place] [address] [place], [place] [address]Dr. Erasmo Smith Sodium [Moles/Vol] 138 mmol/L Normal 136-145 [facility] Comment on above: Performed By: #### H ALEXSANDER, CMP ####[facility] [place] [address] [place], [place] [address]Dr. Erasmo Smith Urea nitrogen [Mass/Vol] 17.0 mg/dL Normal 7.0-18.0 [facility] [place] Comment on above: Performed By: #### H ALEXSANDER, CMP ####[facility] [place] [address] [place], [place] [address]Dr. Erasmo Smith Urea nitrogen/Creatinine [Mass ratio] 24.6 mg/mg Normal [facility] Comment on above: Performed By: #### H ALEXSANDER, CMP ####[facility] [place] [address] [place], [place] [address]Dr. Erasmo Smith PROTIMEon 2022 INR Coag (PPP) [Relative time] 3.58 {INR} Normal [facility] [place] Comment on above: Performed By: #### P T, PTT #### [facility] [place] [facility] [address] [place] [address] Dr. Erasmo Smith INR GUIDELINES SEE BELOW Normal [facility] Comment on above: Result Comment: ABNER RED INR: 2.0 - 3.0 CONDITIONS NOT LISTED BELOW 2.5 - 3.5 FOR PROSTHETIC HEART VALVE REPLACEMENT 2.5 - 3.5 RECURRENT THROMBOSIS Performed By: #### P T, PTT #### [facility] [place] [facility] [address] [place] [address] Dr. Erasmo Smith PT Coag (PPP) [Time] 35.3 s Critically high 9.0-11.6 [facility] [place] Comment on above: Performed By: #### P T, PTT #### [facility] [place] [facility] [address] [place] [address] Dr. Erasmo Smith PTTon 2022 aPTT Coag (Bld) [Time] 40.3 s Critically high 22.3-36. 2 [facility] [place] Comment on above: Performed By: #### P T, PTT #### [facility] [place] [facility] [address] [place] [address] Dr. Erasmo Smith TROPONIN, HIGH SENSITIVITYon 2022 HSTROP 194.7 pg/mL Critically high 4.0-51.3 [facility] Comment on above: Result Comment: CUT- OFF POINTS HAVE BEEN ESTABLISHED BASED ON THE FOURTH UNIVERSAL DEFINITIONS OF MYOCARDIAL INFARCTION. THE UPPER REFERENCE LIMIT (URL) OF TROPONIN, DEFINED THE 99TH PERCENTILE OF cTnI DISTRIBUTION IN A REFERENCE POPULATION, HAS BEEN CONFIRMED THE DECISION THRESHOLD FOR OR DIAGNOSIS. Performed By: #### C MREP #### [facility] [place] [facility] [address] [place] [address] Dr. Erasmo Smith HSTROP 218.0 pg/mL Critically high 4.0-51.3 [facility] Comment on above: Result Comment: CUT- OFF POINTS HAVE BEEN ESTABLISHED BASED ON THE FOURTH UNIVERSAL DEFINITIONS OF MYOCARDIAL INFARCTION. THE UPPER REFERENCE LIMIT (URL) OF TROPONIN, DEFINED THE 99TH PERCENTILE OF cTnI DISTRIBUTION IN A REFERENCE POPULATION, HAS BEEN CONFIRMED THE DECISION THRESHOLD FOR OR DIAGNOSIS. Performed By: #### B SCHEDULING CLERK #### [facility] [place] [facility] [address], [place] [address] Dr. Erasmo Smith XR CHEST 1 Von [...] HONG ALSTON Date: 2022 14:18 Normal [facility] MAMM SCREEN 3D TOÑITO CADon 11-26-2022 MG MAMM SCREEN 3D TOÑITO CAD Patient: BREANN STARKS Exam Date: 11/26/2022 : 1945 Gender:F Ordering : DR LUISANA JOHNSON . Admission #: [id number] Family : Order #: [id number] CLICK HERE TO VIEW EXAM RADIOLOGY REPORT [...] Treatments None Family Cancers None LOCATION: The [facility] [place] BREAST COMPOSITION: Heterogeneously dense,which may obscure small [...] Brown M.D. on 11/26/2022 at 14:13 Normal [facility] PROF 14(COMP METB)on 022 Albumin [Mass/Vol] 3.8 g/dL Normal 3.4-5.0 [facility] Comment on above: Performed By: #### C MREP #### [facility] [place] [facility] [address] [place] [address] Dr. Erasmo Smith Albumin/Globulin [Mass ratio] 0.8 {ratio} Normal [facility] Comment on above: Performed By: #### C MREP #### [facility] [place] [facility] [address] [place] [address] Dr. Erasmo Smith ALP [Catalytic activity/Vol] 102 U/L Normal 46-116 [facility] Comment on above: Performed By: #### C MREP #### [facility] [place] [facility] [address] [place] [address] Dr. Erasmo Smith ALT [Catalytic activity/Vol] 47 U/L Normal 14-59 [facility] Comment on above: Performed By: #### C MREP #### [facility] [place] [facility] [address] [place] [address] Dr. Erasmo Smith Anion gap [Moles/Vol] 12.5 mmol/L Normal [facility] Comment on above: Performed By: #### C MREP #### [facility] [place] [facility] [address] [place] [address] Dr. Erasmo Smith AST [Catalytic activity/Vol] 36 U/L Normal 15-37 [facility] Comment on above: Performed By: #### C MREP #### [facility] [place] [facility] [address] [place] [address] Dr. Erasmo Smith Bilirubin [Mass/Vol] 0.3 mg/dL Normal 0.2-1.0 [facility] Comment on above: Performed By: #### C MREP #### [facility] [place] [facility] [address] [place] [address] Dr. Erasmo Smith Calcium [Mass/Vol] 8.9 mg/dL Normal 8.5-10.1 [facility] Comment on above: Performed By: #### C MREP #### [facility] [place] [facility] [address] [place] [address] Dr. Erasmo Smith Chloride [Moles/Vol] 106 mmol/L Normal 98-107 [facility] Comment on above: Performed By: #### C MREP #### [facility] [place] [facility] [address] [place] [address] Dr. Erasmo Smith CO2 [Moles/Vol] 26.9 mmol/L Normal 21.0-32.0 [facility] Comment on above: Performed By: #### C MREP #### [facility] [place] [facility] [address] [place] [address] Dr. Erasmo Smith Creatinine [Mass/Vol] 0.79 mg/dL Normal 0.55-1.02 [facility] Comment on above: Performed By: #### C MREP #### [facility] [place] [facility] [address] [place] [address] Dr. Erasmo Smith EGFR-AF MAURITIAN >60 Normal >=60 [facility] Comment on above: Performed By: #### C MREP #### [facility] [place] [facility] [address] [place] [address] Dr. Erasmo Smith EGFR-NON AF MAURITIAN >60 Normal >=60 [facility] Comment on above: Performed By: #### C MREP #### [facility] [place] [facility] [address] [place] [address] Dr. Erasmo Smith Globulin (S) [Mass/Vol] 4.6 g/dL Normal [facility] [place] Comment on above: Performed By: #### C MREP #### [facility] [place] [facility] [address] [place] [address] Dr. Erasmo Smith Glucose [Mass/Vol] 102 mg/dL Normal 74-106 [facility] Comment on above: Performed By: #### C MREP #### [facility] [place] [facility] [address] [place] [address] Dr. Erasmo Smith Potassium [Moles/Vol] 4.4 mmol/L Normal 3.5-5.1 [facility] Comment on above: Performed By: #### C MREP #### [facility] [place] [facility] [address] [address] [address] Erasmo Smith Protein [Mass/Vol] 8.4 g/dL Critically high 6.4-8.2 [facility] Comment on above: Performed By: #### C MREP #### [facility] [place] [facility] [address] [address] [address] Erasmo Smith Sodium [Moles/Vol] 141 mmol/L Normal 136-145 [facility] Comment on above: Performed By: #### C MREP #### [facility] [place] [facility] [address] [place] [address] Dr. Erasom Smith Urea nitrogen [Mass/Vol] 28.0 mg/dL Critically high 7.0-18.0 [facility] Comment on above: Performed By: #### C MREP #### [facility] [place] [facility] [address] [place] [address] Dr. Erasmo Smith Urea nitrogen/Creatinine [Mass ratio] 35.4 mg/mg Normal [facility] Comment on above: Performed By: #### C MREP #### [facility] [place] [facility] [address] [place] [address] Dr. Erasmo Smith CBC AUTO DIFFon 07-12-2022 BASO # 0.1 103/ul Normal 0.0-0.1 [facility] Comment on above: Performed By: #### B SCHEDULING CLERK #### [facility] [place] [facility] [address] [place] [address] Dr. Erasmo Smith Basophils/100 WBC (Bld) 0.5 % Normal 0.2-2.0 [facility] Comment on above: Performed By: #### B SCHEDULING CLERK #### [facility] [place] [facility] [address] [place] [address] Dr. Erasmo Smith EO # 0.2 103/ul Normal 0.0-0.7 [facility] Comment on above: Performed By: #### B SCHEDULING CLERK #### [facility] [place] [facility] [address] [place] [address] Dr. Erasmo Smith Eosinophils/100 WBC (Bld) 2.5 % Normal 0.9-7.0 [facility] Comment on above: Performed By: #### B SCHEDULING CLERK #### [facility] [place] [facility] [address] [place] [address] Dr. Erasmo Smith Erythrocyte distribution width (RBC) [Ratio] 17.2 % Critically high 11.0-15.0 [facility] Comment on above: Performed By: #### B SCHEDULING CLERK #### [facility] [place] [facility] [address] [place] [address] Dr. Erasmo Smith Hematocrit (Bld) [Volume fraction] 35.0 % Critically low 36.0-48.0 [facility] Comment on above: Performed By: #### B SCHEDULING CLERK #### [facility] [place] [facility] [address] [place] [address] Dr. Erasmo Smith Hemoglobin (Bld) [Mass/Vol] 11.3 g/dL Critically low 12.0-16.0 [facility] Comment on above: Performed By: #### B SCHEDULING CLERK #### [facility] [place] [facility] [address] [place] [address] Dr. Erasmo Smith IG # 0.02 10e3/ul Normal 0.00-0.03 [facility] Comment on above: Performed By: #### B SCHEDULING CLERK #### [facility] [place] [facility] [address] [place] [address] Dr. Erasmo Smith IG % 0.2 % Normal 0.0-0.5 [facility] Comment on above: Performed By: #### B SCHEDULING CLERK #### [facility] [place] [facility] [address] [place] [address] Dr. Erasmo Smith LYMPH # 2.3 103/ul Normal 1.2-3.8 [facility] Comment on above: Performed By: #### B SCHEDULING CLERK #### [facility] [place] [facility] [address] [place] [address] Dr. Erasmo Smith Lymphocytes/100 WBC (Bld) 25.4 % Normal 20.5-60.0 [facility] Comment on above: Performed By: #### B SCHEDULING CLERK #### [facility] [place] [facility] [address] [place] [address] Dr. Erasmo Smith MANUAL DIFF REQ NO Normal [facility] Comment on above: Performed By: #### B SCHEDULING CLERK #### [facility] [place] [facility] [address] [address] [address] Erasmo Smith MCH (RBC) [Entitic mass] 25.5 pg Critically low 26.7-34.0 [facility] Comment on above: Performed By: #### B SCHEDULING CLERK #### [facility] [place] [facility] [address] [place] [address] Dr. Erasmo Smith [facility] (RBC) [Mass/Vol] 32.3 g/dL Normal 29.9-35.2 [facility] [place] Comment on above: Performed By: #### B SCHEDULING CLERK #### [facility] [place] [facility] [address] [place] [address] Dr. Erasmo Smith MCV (RBC) [Entitic vol] 78.8 fL Critically low 81.0-99.0 [facility] Comment on above: Performed By: #### B SCHEDULING CLERK #### [facility] [place] [facility] [address] [place] [address] Dr. Erasmo Smith MONO # 0.7 103/ul Normal 0.3-0.8 [facility] [place] Comment on above: Performed By: #### B SCHEDULING CLERK #### [facility] [place] [facility] [address] [place] [address] Dr. Erasmo Smith Monocytes/100 WBC (Bld) 7.5 % Normal 1.7-12.0 [facility] Comment on above: Performed By: #### B SCHEDULING CLERK #### [facility] [place] [facility] [address] [place] [address] Dr. Erasmo Smith NEUT # 5.9 103/ul Normal 1.4-6.5 [facility] [place] Comment on above: Performed By: #### B SCHEDULING CLERK #### [facility] [place] [facility] [address] [place] [address] Dr. Erasmo Smith Neutrophils/100 WBC (Bld) 63.9 % Normal 43.0-75.0 [facility] [place] Comment on above: Performed By: #### B SCHEDULING CLERK #### [facility] [place] [facility] [address] [place] [address] Dr. Erasmo Smith Platelet mean volume (Bld) [Entitic vol] 9.0 fL Critically low 9.5-13.5 [facility] [place] Comment on above: Performed By: #### B SCHEDULING CLERK #### [facility] [place] [facility] [address], [place] [address] Dr. Erasmo Smith PLT 305 103/ul Normal 150-450 [facility] [place] Comment on above: Performed By: #### B SCHEDULING CLERK #### [facility] [place] [facility] [address], [place] [address] Dr. Erasmo Smith RBC 4.44 106/ul Normal 4.20-5.40 [facility] [place] Comment on above: Performed By: #### B SCHEDULING CLERK #### [facility] [place] [facility] [address], [place] [address] Dr. Erasmo Smith WBC 9.2 103/ul Normal 4.0-11.0 [facility] [place] Comment on above: Performed By: #### B SCHEDULING CLERK #### [facility] [place] [facility] [address], [place] [address] CHEST WO CONon [...] PAULA BROWN Date: 2022-05-27 15:27 Normal [facility] [place] HEMOGLOBINon 04-20-2022 Hemoglobin (Bld) [Mass/Vol] 10.6 g/dL Critically low 12.0-16.0 [facility] Comment on above: Performed By: #### H GB ####[facility] [place] [address] [place] [address]Dr. Erasmo Smith CULTURE SPUTUMon 04-02-2022 CULTURE SPUTUM Isolate 1 Pseudomonas aeruginosa Light growth of ORGANISM 1 Pseudomonas aeruginosa ANTIBIOTIC M.I.C RX STATUS Piperacillin/Tazobac saez 8 S F Ceftazidime 2 S F Imipenem 1 S F Amikacin <=2 S F Gentamicin <=1 S F Tobramycin <=1 S F Ciprofloxacin <=0.25 S F Levofloxacin 0.25 S F Normal [facility] [place] Comment on above: Performed By: #### S PUTCX ####[facility] [place] [id number] [place], [place] [address]Dr. Erasmo Smith CYTOLOGYon 03-30-2022 SENT TO REF LAB 03/31/22 Normal [facility] Comment on above: Performed By: #### C KANWALO #### [facility] [place] [facility] [address] [address] [address] Erasmo Smith SPUTUM GRAM STAINon 03-30-20 COMMENTS Normal [facility] Comment on above: Performed By: #### B SCHEDULING CLERK #### [facility] [place] [facility] [address] [address] [address] Erasmo Smith DIPHTHEROIDS Normal [facility] Comment on above: Performed By: #### B SCHEDULING CLERK #### [facility] [place] [facility] [address] [address] [address] Erasmo Smith EPITHELIALS <25 Normal [facility] Comment on above: Performed By: #### B SCHEDULING CLERK #### [facility] [place] [facility] [address] [address] [address] Erasmo Smith FUNGAL ELEMENTS Normal [facility] Comment on above: Performed By: #### B SCHEDULING CLERK #### [facility] [place] [facility] [address] [address] [address] Erasmo Smith GRAM NEG BACILLI FEW Normal [facility] Comment on above: Performed By: #### B SCHEDULING CLERK #### [facility] [place] [facility] [address] [address] [address] Erasmo Smith GRAM NEG DIPPLOCOCCI Normal [facility] [place] Comment on above: Performed By: #### B SCHEDULING CLERK #### [facility] [place] [facility] [address] [address] [address] Erasmo Smith GRAM POS BACILLI Normal [facility] Comment on above: Performed By: #### B SCHEDULING CLERK #### [facility] [place] [facility] [address] [address] [address] Erasmo Smith GRAM POSITIVE COCCI MANY Normal [facility] Comment on above: Performed By: #### B SCHEDULING CLERK #### [facility] [place] [facility] [address] [address] [address] Erasmo Smith WBC (Bld) [#/Vol] 10*3/uL Normal [facility] Comment on above: Performed By: #### B SCHEDULING CLERK #### [facility] [place] [facility] [address] [address] [address] Erasmo Smith SPUTUM CULTUREon 03-01-2022 Epithelial cells LM Ql (Urine sed) Few Normal [facility] [place] Comment on above: Performed By: #### C XSPTUM ####[facility] [place] [address] [place], [place] [address]Dr. Erasmo Smith Gram Stain Evaluation Comment Normal [facility] [place] Comment on above: Result Comment: This specimen is of good quality and is acceptable for routine bacterial culture. Performed By: #### C XSPTUM ####[facility] [place] [id number] [address]DrMeena Smith Lower Respiratory Culture Final report Normal [facility] [place] Comment on above: Performed By: #### C XSPTUM ####[facility] [place] [address] [place] [address]DrMeena Smith Result 1 Comment Normal [facility] [place] Comment on above: Result Comment: Few gram positive cocci Performed By: #### C XSPTUM ####[facility] [place] [address] [address]DrMeena Smith Result Comment: Rout ine respiratory adria Result 2 Normal [facility] [place] Comment on above: Performed By: #### C XSPTUM ####[facility] [place] [address] [address]DrMeena Smith Result 3 Normal [facility] [place] Comment on above: Performed By: #### C XSPTUM ####[facility] [place] [address] [place] [address]Dr. Erasmo Smith Result 4 Normal [facility] [place] Comment on above: Performed By: #### C XSPTUM ####[facility] [place] [id number] [place], [place] [address]ThMeena Smith White Blood Cells Few Normal [facility] Comment on above: Performed By: #### C XSPTUM ####[facility] [place] [id number] [place], [place] [address]HdDr. Erasmo Smith BNPon 02-24-2022 Natriuretic peptide B (Bld) [Mass/Vol] 319.0 pg/mL Normal <=900.0 [facility] Comment on above: Performed By: #### B SCHEDULING CLERK #### [facility] [place] [facility] [address] [address] [address] Erasmo Smith CBC AUTO DIFFon 02-24-2022 BASO # 0.1 103/ul Normal 0.0-0.1 [facility] Comment on above: Performed By: #### C MREP #### [facility] [place] [facility] [address] [address] [address] Erasmo Smith Basophils/100 WBC (Bld) 0.5 % Normal 0.2-2.0 [facility] Comment on above: Performed By: #### C MREP #### [facility] [place] [facility] [address] [address] [address] Erasmo Simth EO # 0.3 103/ul Normal 0.0-0.7 [facility] Comment on above: Performed By: #### C MREP #### [facility] [place] [facility] [address] [address] [address] Erasmo Smith Eosinophils/100 WBC (Bld) 3.1 % Normal 0.9-7.0 [facility] Comment on above: Performed By: #### C MREP #### [facility] [place] [facility] [address] [address] [address] Erasmo Smith Erythrocyte distribution width (RBC) [Ratio] 15.1 % Critically high 11.0-15.0 [facility] Comment on above: Performed By: #### C MREP #### [facility] [place] [facility] [address] [place] [address] Dr. Erasmo Smith Hematocrit (Bld) [Volume fraction] 33.9 % Critically low 36.0-48.0 [facility] Comment on above: Performed By: #### C MREP #### [facility] [place] [facility] [address] [place] [address] Dr. Erasmo Smith Hemoglobin (Bld) [Mass/Vol] 10.7 g/dL Critically low 12.0-16.0 [facility] Comment on above: Performed By: #### C MREP #### [facility] [place] [facility] [address] [place] [address] Dr. Erasmo Smith IG # 0.03 10e3/ul Normal 0.00-0.03 [facility] Comment on above: Performed By: #### C MREP #### [facility] [place] [facility] [address] [place] [address] Dr. Erasmo Smith IG % 0.3 % Normal 0.0-0.5 [facility] Comment on above: Performed By: #### C MREP #### [facility] [place] [facility] [address] [place] [address] Dr. Erasmo Smith LYMPH # 2.8 103/ul Normal 1.2-3.8 [facility] Comment on above: Performed By: #### C MREP #### [facility] [place] [facility] [address] [place] [address] Dr. Erasmo Smith Lymphocytes/100 WBC (Bld) 30.6 % Normal 20.5-60.0 [facility] Comment on above: Performed By: #### C MREP #### [facility] [place] [facility] [address] [place] [address] Dr. Erasmo Smith MANUAL DIFF REQ NO Normal [facility] Comment on above: Performed By: #### C MREP #### [facility] [place] [facility] [address] [place] [address] Dr. Erasmo Smith MCH (RBC) [Entitic mass] 26.9 pg Normal 26.7-34.0 [facility] [place] Comment on above: Performed By: #### C MREP #### [facility] [place] [facility] [address] [address] [address] Erasmo Smith MCHC (RBC) [Mass/Vol] 31.6 g/dL Normal 29.9-35.2 [facility] Comment on above: Performed By: #### C MREP #### [facility] [place] [facility] [address] [address] [address] Erasmo Smith MCV (RBC) [Entitic vol] 85.2 fL Normal 81.0-99.0 [facility] Comment on above: Performed By: #### C MREP #### [facility] [place] [facility] [address] [place] [address] Dr. Erasmo Smith MONO # 0.7 103/ul Normal 0.3-0.8 [facility] Comment on above: Performed By: #### C MREP #### [facility] [place] [facility] [address] [place] [address] Dr. Erasmo Smith Monocytes/100 WBC (Bld) 7.9 % Normal 1.7-12.0 [facility] Comment on above: Performed By: #### C MREP #### [facility] [place] [facility] [address] [place] [address] Dr. Erasmo Smith NEUT # 5.3 103/ul Normal 1.4-6.5 [facility] [place] Comment on above: Performed By: #### C MREP #### [facility] [place] [facility] [address] [place] [address] Dr. Erasmo Smith Neutrophils/100 WBC (Bld) 57.6 % Normal 43.0-75.0 [facility] [place] Comment on above: Performed By: #### C MREP #### [facility] [place] [facility] [address] [place] [address] Dr. Erasmo Smith Platelet mean volume (Bld) [Entitic vol] 9.0 fL Critically low 9.5-13.5 [facility] Comment on above: Performed By: #### C MREP #### [facility] [place] [facility] [address] [place] [address] Dr. Erasmo Smith PLT 249 103/ul Normal 150-450 [facility] Comment on above: Performed By: #### C MREP #### [facility] [place] [facility] [address], [place] [address] Dr. Erasmo Smith RBC 3.98 106/ul Critically low 4.20-5.40 [facility] Comment on above: Performed By: #### C MREP #### [facility] [place] [facility] [address], [place] [address] Dr. Erasmo Smith WBC 9.1 103/ul Normal 4.0-11.0 [facility] Comment on above: Performed By: #### C MREP #### [facility] [place] [facility] [address], [place] [address] Dr. Erasmo Smith CTA CHEST WO W [...] by: PAULA BROWN Date: 2022-02-24 18:24 Normal [facility] D-DIMERon 02-24-2022 D-DIMER 1.36 mg/L FEU Critically high <=0.59 [facility] Comment on above: Performed By: #### D DIM #### [facility] [place] [facility] [address] [place] [address] Dr. Erasmo Smith D-DIMER COMMENTS SEE BELOW Normal [facility] Comment on above: Result Comment: Incr [...] hospitalization. Performed By: #### D DIM #### [facility] [place] [facility] [address] [place] [address] Dr. Erasmo Smith PROF 14(COMP METB)on 022 Albumin [Mass/Vol] 3.6 g/dL Normal 3.4-5.0 [facility] Comment on above: Performed By: #### C MREP #### [facility] [place] [facility] [address] [place] [address] Dr. Erasmo Smith Albumin/Globulin [Mass ratio] 0.8 {ratio} Normal [facility] Comment on above: Performed By: #### C MREP #### [facility] [place] [facility] [address] [place] [address] Dr. Erasmo Smith ALP [Catalytic activity/Vol] 95 U/L Normal 46-116 [facility] Comment on above: Performed By: #### C MREP #### [facility] [place] [facility] [address] [place] [address] Dr. Erasmo Smith ALT [Catalytic activity/Vol] 45 U/L Normal 14-59 [facility] Comment on above: Performed By: #### C MREP #### [facility] [place] [facility] [address] [place] [address] Dr. Erasmo Smith Anion gap [Moles/Vol] 15.9 mmol/L Normal [facility] Comment on above: Performed By: #### C MREP #### [facility] [place] [facility] [address] [address] [address] Erasmo Smith AST [Catalytic activity/Vol] 33 U/L Normal 15-37 [facility] Comment on above: Performed By: #### C MREP #### [facility] [place] [facility] [address] [address] [address] Erasmo Smith Bilirubin [Mass/Vol] 0.5 mg/dL Normal 0.2-1.0 [facility] Comment on above: Performed By: #### C MREP #### [facility] [place] [facility] [address] [address] [address] Erasmo Smith Calcium [Mass/Vol] 9.1 mg/dL Normal 8.5-10.1 [facility] Comment on above: Performed By: #### C MREP #### [facility] [place] [facility] [address] [address] [address] Erasmo Smith Chloride [Moles/Vol] 103 mmol/L Normal 98-107 [facility] Comment on above: Performed By: #### C MREP #### [facility] [place] [facility] [address] [address] [address] Erasmo Smith CO2 [Moles/Vol] 25.1 mmol/L Normal 21.0-32.0 [facility] Comment on above: Performed By: #### C MREP #### [facility] [place] [facility] [address] [address] [address] Erasmo Smith Creatinine [Mass/Vol] 0.77 mg/dL Normal 0.55-1.02 [facility] Comment on above: Performed By: #### C MREP #### [facility] [place] [facility] [address] [address] [address] Erasmo Smith EGFR-AF MAURITIAN >60 Normal >=60 [facility] Comment on above: Performed By: #### C MREP #### [facility] [place] [facility] [address] [address] [address] Erasmo Smith EGFR-NON AF MAURITIAN >60 Normal >=60 [facility] Comment on above: Performed By: #### C MREP #### [facility] [place] [facility] [address] [address] [address] Erasmo Smith Globulin (S) [Mass/Vol] 4.3 g/dL Normal [facility] Comment on above: Performed By: #### C MREP #### [facility] [place] [facility] [address] [address] [address] Erasmo Smith Glucose [Mass/Vol] 92 mg/dL Normal 74-106 [facility] Comment on above: Performed By: #### C MREP #### [facility] [place] [facility] [address] [address] [address] Erasmo Smith Potassium [Moles/Vol] 4.0 mmol/L Normal 3.5-5.1 [facility] Comment on above: Performed By: #### C MREP #### [facility] [place] [facility] [address] [place] [address] Dr. Erasmo Smith Protein [Mass/Vol] 7.9 g/dL Normal 6.4-8.2 [facility] Comment on above: Performed By: #### C MREP #### [facility] [place] [facility] [address] [place] [address] Dr. Erasmo Smith Sodium [Moles/Vol] 140 mmol/L Normal 136-145 [facility] Comment on above: Performed By: #### C MREP #### [facility] [place] [facility] [address] [place] [address] Dr. Erasmo Smith Urea nitrogen [Mass/Vol] 17.0 mg/dL Normal 7.0-18.0 [facility] Comment on above: Performed By: #### C MREP #### [facility] [place] [facility] [address] [place] [address] Dr. Erasmo Smith Urea nitrogen/Creatinine [Mass ratio] 22.1 mg/mg Normal [facility] Comment on above: Performed By: #### C MREP #### [facility] [place] [facility] [address] [place] [address] Dr. Erasmo Smith PROTIMEon 02-24-2022 INR Coag (PPP) [Relative time] 2.28 {INR} Normal [facility] Comment on above: Performed By: #### P T, PTT ####[facility] [place] [address] [place], [place] [address]Qd. Erasmo Smith INR GUIDELINES SEE BELOW Normal [facility] Comment on above: Result Comment: ABNER RED INR: 2.0 - 3.0 CONDITIONS NOT LISTED BELOW 2.5 - 3.5 FOR PROSTHETIC HEART VALVE REPLACEMENT 2.5 - 3.5 RECURRENT THROMBOSIS Performed By: #### P T, PTT ####[facility] [place] [id number] [id number] Smith PT Coag (PPP) [Time] 23.3 s Critically high 9.0-11.6 [facility] Comment on above: Performed By: #### P T, PTT ####[facility] [place] [address] [place] [id number] Erasmo Smith PTTon 02-24-2022 aPTT Coag (Bld) [Time] 34.7 s Normal 22.3-36.2 [facility] Comment on above: Performed By: #### P T, PTT ####[facility] [place] [address] [place] [id number] Erasmo Smith TROPONIN, HIGH SENSITIVITYon 02-24-2022 HSTROP 6.6 pg/mL Normal 4.0-51.3 [facility] Comment on above: Result Comment: CUT- OFF POINTS HAVE BEEN ESTABLISHED BASED ON THE FOURTH UNIVERSAL DEFINITIONS OF MYOCARDIAL INFARCTION. THE UPPER REFERENCE LIMIT (URL) OF TROPONIN, DEFINED THE 99TH PERCENTILE OF cTnI DISTRIBUTION IN A REFERENCE POPULATION, HAS BEEN CONFIRMED THE DECISION THRESHOLD FOR OR DIAGNOSIS. Performed By: #### C MREP #### [facility] [place] [facility] [address], [place] [address] Dr. Erasmo Smith PROTHROMBIN TIMEon 2 INR Coag (PPP) [Relative time] 1.2 {INR} High 0.86-1.16 [facility] Comment on above: Result Comment: INR Theraputic Range: 2.0-3.5 Performed at [facility] [address] [facility] [address] PT Coag (PPP) [Time] 12.7 s Normal 9.3-12.7 [facility] ANTICOAGULANT COUMADIN [facility] Vital Signs Date Time Vital Sign Value Performing Clinician Facility 08-02-2024 10:51-0500 Body height 149.9 cm Renny Hansen MD Work Phone: [facility] 08-02-2024 10:51-0500 Body mass index (BMI) [Ratio] 44.84 kg/m2 Renny Hansen MD Work Phone: [facility] 08-02-2024 10:51-0500 Body temperature 98.4 [degF] Renny Hansen MD Work Phone: [facility] 08-02-2024 10:51-0500 Body weight 100.7 kg Renny Hansen MD Work Phone: [facility] 08-02-2024 10:51-0500 Diastolic blood pressure 72 mm[Hg] Renny Hansen MD Work Phone: [facility] 08-02-2024 10:51-0500 Heart rate 60 /min Renny Hansen MD Work Phone: [facility] 08-02-2024 10:51-0500 SaO2% (BldA) [Mass fraction] 95 % Renny Hansen MD Work Phone: [facility] 08-02-2024 10:51-0500 Systolic blood pressure 134 mm[Hg] Renny Hansen MD Work Phone: [facility] 07-24-2024 10:48-0500 Body height 149.9 cm Eleanor Hemmer PA Work Phone: [facility] 07-24-2024 10:48-0500 Body mass index (BMI) [Ratio] 45.85 kg/m2 Eleanor Hemmer PA Work Phone: [facility] 07-24-2024 10:48-0500 Body weight 102.97 kg Eleanor Hemmer PA Work Phone: [facility] 07-24-2024 10:48-0500 Diastolic blood pressure 68 mm[Hg] Eleanor Hemmer PA Work Phone: [facility] 07-24-2024 10:48-0500 Heart rate 60 /min Eleanor Hemmer PA Work Phone: [facility] 07-24-2024 10:48-0500 SaO2% (BldA) [Mass fraction] 96 % Eleanor SANTOS Work Phone: [facility] 07-24-2024 10:48-0500 Systolic blood pressure 124 mm[Hg] Eleanor SANTOS Work Phone: [facility] 07-05-2024 08:50-0400 Body height 149.9 cm Renny Hansen MD Work Phone: [facility] 07-05-2024 08:50-0400 Body mass index (BMI) [Ratio] 46.66 kg/m2 Renny Hansen MD Work Phone: [facility] 07-05-2024 08:50-0400 Body weight 104.78 kg Renny Hansen MD Work Phone: [facility] 07-05-2024 08:50-0400 Diastolic blood pressure 74 mm[Hg] Renny Hansen MD Work Phone: [facility] 07-05-2024 08:50-0400 Heart rate 69 /min Renny Hansen MD Work Phone: [facility] 07-05-2024 08:50-0400 SaO2% (BldA) [Mass fraction] 96 % Renny Hansen MD Work Phone: [facility] 07-05-2024 08:50-0400 Systolic blood pressure 130 mm[Hg] Renny Hansen MD Work Phone: [facility] 05-22-2024 13:17-0400 Body height 149.9 cm Boo Sherwin PA-C Work Phone: [facility] 05-22-2024 13:17-0400 Body mass index (BMI) [Ratio] 44.43 kg/m2 Boo Sherwin PA-C Work Phone: [facility] 05-22-2024 13:17-0400 Body weight 99.79 kg Boo Sherwin PA-C Work Phone: [facility] 03-02-2024 11:51-0400 Blood Pressure Location Ortega NILL [facility] 03-02-2024 11:51-0400 Diastolic blood pressure 75 mm[Hg] Ortega NILL [facility] 03-02-2024 11:51-0400 Heart rate 71 /min Ortega NILL [facility] 03-02-2024 11:51-0400 Respiratory rate 16 /min Ortega NILL [facility] 03-02-2024 11:51-0400 Systolic blood pressure 118 mm[Hg] Ortega NILL [facility] 10-07-2021 16:00-0500 Body height 146.69 cm Hong Nevarez Other [employer] Other 10-07-2021 16:00-0500 Body mass index (BMI) [Ratio] 51.01 kg/m2 Hong Nevarez Other [employer] Other 10-07-2021 16:00-0500 Body weight 109.77 kg Hong Nevarez Other [employer] Other 08-26-2021 15:15-0500 Body height 146.69 cm Hong Nevarez Other [employer] Other 08-26-2021 15:15-0500 Body mass index (BMI) [Ratio] 51.07 kg/m2 Hong Nevarez Other [employer] Other 08-26-2021 15:15-0500 Body weight 109.91 kg Hong Geri Other [employer] Other Encounters Encounter Date Encounter Type Care Provider Facility Start: 08-02-2024 End: 08-02-2024 Bamboo flowsheet Renny Hansen MD Work Phone: [facility] Start: 08-02-2024 End: 08-02-2024 Bamboo flowsheet Renny Hansen MD Work Phone: [facility] Start: 08-02-2024 End: 08-02-2024 Office outpatient visit 25 minutes Renny Hansen MD Work Phone: [facility] Comment on above: 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); Persistent atrial fibrillation (HCC) (CMS/HCC); Nausea Start: 08-02-2024 End: 08-02-2024 ambulatory RENNY HANSEN Not Available Start: 07-25-2024 End: 07-25-2024 Telephone encounter Eleanor SANTOS Work Phone: [facility] Start: 07-24-2024 End: 07-24-2024 Bamboo flowsheet Eleanor SANTOS Work Phone: [facility] Start: 07-24-2024 End: 07-24-2024 Bamboo flowsheet Eleanor Leahy PA Work Phone: [facility] Start: 07-24-2024 End: 07-24-2024 Clinisync Result Encounter Eleanor SANTOS Work Phone: [facility] Unsolicited Start: 07-24-2024 End: 07-24-2024 Office outpatient visit 25 minutes Eleanor SANTOS Work Phone: [facility] Comment on above: Cervical radiculopat hy (Primary Dx); Neck pain on left side; Radicular pain in left arm; 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; Iron deficiency anemia due to chronic blood loss; Post-nasal drip; Nausea; Pulmonary hypertension (CMS/HCC); Other thrombophilia (CMS/HCC) Start: 07-24-2024 End: 07-24-2024 ambulatory ELEANOR LEAHY Not Available Start: 07-19-2024 End: 07-19-2024 ambulatory ZAC MARIO Not Available Start: 07-18-2024 End: 07-18-2024 ambulatory [facility] Start: 07-16-2024 End: 07-16-2024 Refill Monster Calvillo SCHEDULING CLERK Work Phone: [facility] Comment on above: Essential hypertensi on (CMS/HCC) Start: 07-05-2024 End: 07-05-2024 Bamboo flowsheet Renny Hansen MD Work Phone: [facility] Start: 07-05-2024 End: 07-05-2024 Bamboo flowsheet Renny Hansen MD Work Phone: [facility] Start: 07-05-2024 End: 07-24-2024 Telephone encounter Renny Hansen MD Work Phone: [facility] Start: 07-05-2024 End: 07-05-2024 Office outpatient visit 40 minutes Renny Hansen MD Work Phone: [facility] Comment on above: Persistent atrial fi brillation (HCC) (CMS/HCC) (Primary Dx); Breast screening; Acute non-recurrent sinusitis, unspecified location; Neck pain on left side; Radicular pain in left arm; Abnormal CT scan, neck; Degenerative disc disease, cervical; Axillary lymphadenopathy; 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 Start: 06-18-2024 End: 06-18-2024 Refill Monster Calvillo SCHEDULING CLERK Work Phone: [facility] Comment [...] procedure MD Shaikh Denis Work Phone: [facility] [place] Work Phone: Start: 05-02-2024 End: 05-02-2024 ambulatory MD Shaikh Denis Work Phone: [facility] Work Phone: Start: 04-16-2024 End: 04-16-2024 ambulatory PEDRO PABLO CRUZ Not Available Start: 04-16-2024 End: 04-16-2024 ambulatory Miguel Murphy MD Facility:[facility] Start: 04-11-2024 End: 04-11-2024 ambulatory SHAIKH CIRA Not Available Start: 04-10-2024 End: 04-10-2024 Patient encounter procedure MD Shaikh Denis Work Phone: [facility] [place] Work Phone: Start: 04-10-2024 End: 04-10-2024 ambulatory MD Shaikh Denis Work Phone: [facility] Work Phone: Start: 04-02-2024 End: 04-02-2024 ambulatory Miguel Murphy MD Facility:[facility] Start: 03-29-2024 End: 03-29-2024 Patient encounter procedure MD Shaikh Denis Work Phone: [facility]-Pacemaker Check Start: 03-29-2024 End: 03-29-2024 ambulatory MD Shaikh Denis Work Phone: [facility] Work Phone: Start: 03-12-2024 End: 03-12-2024 ambulatory SHAIKH CIRA Not Available Start: 03-07-2024 End: 03-07-2024 ambulatory Ortega ALEXANDER Facility:[id number] Start: 03-02-2024 End: 03-02-2024 ambulatory Ortega ALEXANDER Facility: [facility] Start: 03-02-2024 End: 03-02-2024 Patient encounter procedure Ortega ALEXANDER [facility] [place] Start: 03-01-2024 ambulatory Ortega ALEXANDER Facility:[facility] Start: 02-27-2024 End: 02-27-2024 ambulatory SHAIKH CIRA Not Available Start: 01-17-2024 End: 01-17-[address] [facility] Start: 12-29-2023 End: 12-29-2023 ambulatory SHAIKH CIRA Not Available Start: 12-27-2023 End: 12-27-2023 ambulatory YANCY [facility] Start: 12-26-2023 End: 12-26-2023 ambulatory Miguel Murphy MD Facility:[facility] Start: 12-05-2023 End: 12-05-2023 ambulatory Miguel Murphy MD Facility:[facility] Start: 11-16-2023 End: 11-16-2023 ambulatory Shaikh Cira Facility:[facility] Start: 11-07-2023 End: 11-07-2023 ambulatory SHAIKH CIRA Not Available Start: 10-17-2023 Cristobal Denis MD Work Phone: [facility] Start: 10-17-2023 Cristobal Denis MD Work Phone: [facility] Start: 10-17-2023 End: 10-17-2023 ambulatory SHAIKH CIRA Not Available Start: 10-11-2023 End: 10-11-2023 ambulatory MD Shaikh Denis Work Phone: [facility] Work Phone: Start: 10-11-2023 End: 10-11-2023 Patient encounter procedure MD Shaikh Denis Work Phone: [facility] [place] Work Phone: Start: 09-08-2023 End: 09-08-2023 Patient encounter procedure MD Shaikh Denis Work Phone: [facility] Start: 09-08-2023 End: 09-08-2023 ambulatory MD Shaikh Denis Work Phone: [facility] Work Phone: Start: 09-06-2023 [...] Facility:[facility] Start: 11-10-2022 End: 12-10-2022 ambulatory SHAIKH Kmyberly DENIS Facility:[facility] Start: 10-13-2022 End: 11-10-2022 ambulatory SAHU H CAMILOWMADHURI Facility:[facility] Start: 09-13-2022 End: 10-13-[address] [...] Start: 06-13-2022 End: 07-12-2022 ambulatory SAHU H FAWWAAlysa Facility:[facility] Start: 05-27-2022 End: 05-28-2022 ambulatory LUIZ SAMSA . Facility:[facility] Start: 05-19-2022 End: 05-20-2022 ambulatory LUIZ SAMSA . Facility:[facility] Start: 05-13-2022 End: 06-12-2022 ambulatory SAHU H FAWWAD Facility:[facility] Start: 04-20-2022 End: 04-21-2022 ambulatory LUIZ SAMSA . Facility:[facility] Start: 04-12-2022 End: 05-12-2022 ambulatory SAHU H FAWWAAlysa Facility:[facility] Start: 03-30-2022 End: 03-30-[address] LUISANA JOHNSON . Facility:[facility] Start: 03-12-2022 End: 04-09-2022 ambulatory SAHU H FAWWAAlysa Facility:[facility] Start: 02-25-2022 End: 02-25-[address] LUISANA JOHNSON . Facility:[facility] Start: 02-24-2022 End: 02-25-[address] LUISANA JOHNSON . Facility:[facility] Start: 10-07-2021 End: 10-07-2021 ambulatory Hong Nevarez Other [employer] Other Start: 10-07-2021 Office outpatient visit 15 minutes Hong Nevarez [facility] Start: 08-26-2021 End: 08-26-2021 ambulatory Hong Nevarez Other [employer] Other Start: 08-26-2021 Office outpatient ne w 45 minutes Hong Tonydevon [facility] Start: 10-11-2020 End: 10-13-2020 Evaluation and management of inpatient ZANE MAYNOR Facility:[facility] Procedures Date Procedure Procedure Detail Performing Clinician Start: 07-24-2024 ALL CBC WITH AUTO DIFF Eleanor SANTOS Work Phone: Start: 07-24-2024 [employer] Filippo SANTOS Work Phone: Start: 07-24-2024 Transferrin [Mass/vo lume] in Serum or Plasma Eleanor SANTOS Work Phone: Start: 05-22-2024 Radex shoulder compl ete minimum 2 views [facility] Work Phone: Start: 05-02-2024 Radionuclide three-p hase bone study MD Shaikh Denis Work Phone: Start: 10-11-2023 XR pre/post mri xray MD Shaikh Denis Work Phone: Start: 10-11-2023 MR lumbar spine wo con MD Shaikh Denis Work Phone: Start: 09-20-2021 Cardiac pacemaker, alysa cm (physical object) Ortega ALEXANDER Comment on above: [...] abdominal hyst erectomy with bilateral salpingo-oophorectomy Ortega NILL Plan of Treatment Date Care Activity Detail Author Start: 09-12-2027 Screening for malign ant neoplasm of colon [facility] Start: 09-14-2024 End: 09-14-2024 Patient encounter procedure 09/14/2024 10:00 AM EST Office Visit [facility] [address] [facility] [address] [place] [phone] Renny Hansen MD [address] [facility] [address] [place], [place] [id number] [facility] Start: 09-06-2024 Medicare Annual Well ness (AWV) Medicare Annual Wellness (AWV) [facility] Start: 08-23-2024 End: 08-23-2024 Patient encounter procedure 08/23/2024 11:45 AM EST Office Visit [facility] [address] [place] [address] Renny Hansen MD [address] [place] [address] [facility] Start: 08-16-2024 End: 08-16-2024 Patient encounter procedure 08/16/2024 10:30 AM EST Office Visit [facility] [address] [place] [address] Renny Hansen MD [address] [place] [address] [facility] Start: 08-02-2024 End: 08-02-2025 RF Upper gastrointestinal tract and Small bowel Single view W contrast PO FL upper GI double contrast w KUB Imaging Routine Nausea Expected: 08/02/2024, Expires: 08/02/2025 [facility] Work Phone: Comment on above: Expected: 08/02/2024 , Expires: 08/02/2025 Start: 08-02-2024 End: 08-02-2024 Patient encounter procedure [facility] Comment on above: Arrived Start: 07-24-2024 End: 07-24-2025 CBC W Auto Differential panel - Blood CBC and differential Lab Routine 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 Iron deficiency anemia due to chronic blood loss Expected: 07/24/2024 (Approximate), Expires: 07/24/2025 [facility] Work Phone: Comment on above: Expected: 07/24/2024 (Approximate), Expires: 07/24/2025 Start: 07-24-2024 End: 07-24-2025 Iron + transferrin + TIBC Iron + transferrin + TIBC Lab Routine 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 Iron deficiency anemia due to chronic blood loss Expected: 07/24/2024 (Approximate), Expires: 07/24/2025 [facility] Comment on above: Expected: 07/24/2024 (Approximate), Expires: 07/24/2025 Start: 07-19-2024 End: 07-19-2024 Patient encounter procedure 07/19/2024 12:00 PM EST Procedure Visit [facility] [address] [place] [address] [facility] Start: 07-05-2024 End: 07-05-2025 EMG AND NERVE CONDUCTION STUDY EMG AND NERVE CONDUCTION STUDY Neurology Routine Neck pain on left side Radicular pain in left arm Expected: 07/05/2024 (Approximate), Expires: 07/05/2025 [facility] Comment on above: Expected: 07/05/2024 (Approximate), Expires: 07/05/2025 Start: 07-05-2024 End: 09-04-2025 MG Breast - bilateral Screening Bilateral screening mammogram Imaging Routine Breast screening Expected: 07/05/2024 (Approximate), Expires: 09/04/2025 [facility] Work Phone: Comment on above: Expected: 07/05/2024 (Approximate), Expires: 09/04/2025 Start: 07-05-2024 End: 07-05-2024 Patient encounter procedure [facility] Comment on above: Arrived Start: 05-22-2024 End: 08-21-2024 C reactive protein [Mass/volume] in Serum or Plasma C-REACTIVE PROTEIN Lab Routine 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) Expected: 05/22/2024, Expires: 08/21/2024 [facility] Comment on above: Expected: 05/22/2024 , Expires: 08/21/2024 Start: 05-22-2024 End: 08-21-2024 CBC W Auto Differential panel - Blood COMPLETE BLOOD COUNT AND DIFFERENTIAL Lab Routine 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) Expected: 05/22/2024, Expires: 08/21/2024 [facility] Comment on above: Expected: 05/22/2024 , Expires: 08/21/2024 Start: 05-22-2024 End: 08-21-2024 Erythrocyte sedimentation rate SEDIMENTATION RATE, WESTERGREN Lab Routine 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) Expected: 05/22/2024, Expires: 08/21/2024 [facility] Comment on above: Expected: 05/22/2024 , Expires: 08/21/2024 Start: 05-13-2024 Covid-19 Vaccine ( season) Covid-19 Vaccine () [facility] Start: 05-13-2024 Influenza vaccination Influenza Vacc ine (#1) [facility] Start: 11-07-2023 End: 11-07-2023 Patient encounter procedure 11/07/2023 2:30 PM EST Office Visit [facility] [address] [place] [phone] Shaikh Denis MD [address] [place] [phone] [facility] Start: 10-17-2023 End: 10-17-2023 Patient encounter procedure 10/17/2023 10:15 AM EST Office Visit [facility] [address] [place] [phone] Shaikh Denis MD [address] [place] [phone] Arrived [facility] Comment on above: Arrived Start: 09-12-2023 Advance Directive Discussion Advance Directive Discussion [facility] Start: 11-30-2012 Screening for osteoporosis Bone Dens ity Screening [facility] Start: 11-30-1997 Shingrix Vaccine (1 of 2) Reyes grix Vaccine (1 of 2) [facility] Start: 11-30-1992 Diabetes Screening Diabetes Screenin g [facility] Start: 11-30-1966 Urine microalbumin profile DTa P,Tdap,Td Vaccine (1 - Tdap) [facility] Start: 11-30-1965 Anxiety Screening Anxiety Screening [facility] Start: 11-30-1965 Depression Screening Depression Scre ening [facility] Start: 11-30-1965 Hepatitis C 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) 1 Occurrences starting 05/22/2024 until 06/21/2025 [facility] Work Phone: Comment on above: 1 Occurrences starti ng 05/22/2024 until 06/21/2025 Immunizations Immunization Date Immunization Notes Care Provider Camilo bhatia 08-25-2023 influenza virus vaccine, unspecified formulation Ortega ALEXANDER [facility] [place] 08-25-2023 Influenza, Seasonal, Quadrivalent, Adjuvanted Monster Calvillo SCHEDULING CLERK Work Phone: [facility] 08-25-2023 RSV, recombinant, protein subunit RSVpreF, adjuvant reconstitu, 120mcg/0.5mL, PF (Arexvy) Monster Calvillo SCHEDULING CLERK Work Phone: [facility] 07-08-2022 influenza virus vaccine, unspecified formulation Ortega ALEXANDER [facility] 07-08-2022 Influenza, Seasonal, Quadrivalent, Adjuvanted Monster Calvillo SCHEDULING CLERK Work Phone: [facility] 08-20-2021 influenza virus vaccine, unspecified formulation Ortega ALEXANDER [facility] 08-20-2021 Influenza, Seasonal, Quadrivalent, Adjuvanted Monster Calvillo SCHEDULING CLERK Work Phone: [facility] 08-20-2021 pneumococcal polysaccharide vaccine, 23 valent Ortega ALEXANDER [facility] 11-18-2020 SARS-CoV-2 (COVID-19 ) mRNA-1273 vaccine Ortega ALEXANDER [facility] 10-20-2020 SARS-CoV-2 (COVID-19 ) mRNA-0369 vaccine Ortega NILL [facility] 08-04-2020 influenza virus vaccine, unspecified formulation Ortega NILL [facility] 08-04-2020 Influenza, Seasonal, Quadrivalent, Adjuvanted Monster Calvillo SCHEDULING CLERK Work Phone: [facility] 08-04-2020 pneumococcal conjuga te vaccine, 13 valent Ortega NILL [facility] 08-06-2019 influenza virus vaccine, unspecified formulation Ortega NILL [facility] 08-06-2019 influenza, high dose seasonal, preservative-free Monster Calvillo SCHEDULING CLERK Work Phone: [facility] 07-05-2017 influenza virus vaccine, unspecified formulation Ortega NILL [facility] 07-05-2017 pneumococcal conjuga te vaccine, 13 valent Ortega NILL [facility] 07-05-2017 Seasonal trivalent influenza vaccine, adjuvanted, preservative free Monster Calvillo SCHEDULING CLERK Work Phone: [facility] 06-29-2016 influenza virus vaccine, unspecified formulation Ortega NILL [facility] 06-29-2016 Seasonal trivalent influenza vaccine, adjuvanted, preservative free Monster Calvillo SCHEDULING CLERK Work Phone: [facility] 06-25-2015 influenza virus vaccine, unspecified formulation Ortega NILL [facility] 06-25-2015 influenza, injectabl e, quadrivalent, contains preservative Monster Calvillo SCHEDULING CLERK Work Phone: [facility] 06-12-2015 influenza virus vaccine, unspecified formulation Ortega NILL [facility] 06-12-2015 seasonal influenza, intradermal, preservative free Monster Calvillo SCHEDULING CLERK Work Phone: [facility] 07-12-2014 influenza virus vaccine, unspecified formulation Oretga NILL [facility] 07-12-2014 influenza, injectabl e, quadrivalent, contains preservative Monster Calvillo SCHEDULING CLERK Work Phone: [facility] 08-07-2013 influenza virus vaccine, unspecified formulation Ortega NILL [facility] 08-07-2013 influenza, seasonal, injectable Monster Calvillo SCHEDULING CLERK Work Phone: [facility] Healthcare Payers Date Payer Category Payer Medicaid [employer] MEDICARE A DVANTAGE [id number] 2023 Private Health Insurance 2023 Private Health Insurance [facility] [id number] 2023 Self-pay [id number] 2023 Managed Care HMO (unspecified) [employer] A[employer] [id number] 2023-Present [address] [place] [address] [place] [id number] 2007 Medicare [id number]. [id number] 1959 Medicare [id number] 1959 Private Health Insurance [facility] [id number] 1947 Unknown [id number] 2.16.840.1.115494.3.579.2. 647 1947 Unknown [id number] 2.16.840.1.031392.3.579.2. 593 1947 Unknown [id number] 2.16.840.1.978676.3.579.2. 593 1947 Unknown [id number] 2.16.840.1.789898.3.579.2. 593 1947 Unknown [id number] 2.16.840.1.866027.3.579.2. 593 1947 Unknown [id number] 2.16.840.1.496026.3.579.2. 593 1947 Unknown [id number] 2.16.840.1.467662.3.579.2. 593 1947 Unknown [id number] 2.16.840.1.242604.3.579.2. 593 1947 Unknown [id number] 2.16.840.1.915114.3.579.2. 593 1947 Unknown [id number] 2.16.840.1.122097.3.579.2. 593 1947 Unknown [id number] 2.16.840.1.745620.3.579.2. 593 1947 Unknown [id number] 2.16.840.1.065533.3.579.2. 593 1947 Unknown [id number] 2.16.840.1.369557.3.579.2. 593 1947 Unknown [id number] 2.16.840.1.602627.3.579.2. 593 1947 Unknown [id number] 2.16.840.1.194393.3.579.2. 593 1947 Unknown [id number] 2.16.840.1.087514.3.579.2. 593 1947 Unknown [id number] 2.16.840.1.699705.3.579.2. 593 1947 Unknown [id number] 2.16.840.1.573018.3.579.2. 593 1947 Unknown [id number] 2.16.840.1.944716.3.579.2. 593 1947 Unknown [id number] 2.16.840.1.627153.3.579.2. 593 1947 Unknown [id number] 2.16.840.1.251154.3.579.2. 593 1947 Unknown [id number] 2.16.840.1.896611.3.579.2. 593 1947 Unknown [id number] 2.16.840.1.909944.3.579.2. 593 1947 Unknown [id number] 2.16.840.1.020780.3.579.2. 593 1947 Unknown [id number] 2.16.840.1.653232.3.579.2. 593 1947 Unknown [id number] 2.16.840.1.112860.3.579.2. 593 1947 Unknown [id number] 2.16.840.1.117414.3.579.2. 593 1947 Unknown [id number] 2.16.840.1.522199.3.579.2. 727 1947 Unknown [id number] 2.16.840.1.515269.3.579.2. 727 1947 Unknown [id number] 2.16.840.1.779234.3.579.2. 196 1947 Unknown [id number] 2.16.840.1.848243.3.579.2. 196 1947 Unknown [id number] 2.16.840.1.917374.3.579.2. 196 1947 Unknown [id number] 2.16.840.1.504416.3.579.2. 196 1947 Unknown [id number] 2.16.840.1.511218.3.579.2. 1259 1947 Unknown [id number] 2.16840.1.424281.3.579.2. 1259 1947 Unknown [id number] 2.16.840.1.713045.3.579.2. 1259 1947 Unknown [id number] 2.16.840.1.606853.3.579.2. 125 1947 Unknown [id number] 2.16840.1.907854.3.579.2. 1259 1947 Unknown [id number] 2.16840.1.781025.3.579.2. 1259 1947 Unknown [id number] 2.16.840.1.196146.3.579.2. 1259 1947 Unknown [id number] 2.16.840.1.828893.3.579.2. 1259 1947 Unknown [id number] 2.16.840.1.072489.3.579.2. 1259 1947 Unknown [id number] 2.16.840.1.526991.3.579.2. 1259 1947 Unknown [id number] 2.16.840.1.792409.3.579.2. 1259 1947 Unknown [id number] 2.16.840.1.193694.3.579.2. 1259 1947 Unknown [id number] 2.16.840.1.842956.3.579.2. 1259 1947 Unknown [id number] 2.16.840.1.024542.3.579.2. 1258 1947 Unknown [id number] 2.16.840.1.725460.3.579.2. 1259 1947 Unknown [id number] 2.16.840.1.910559.3.579.2. 1259 Medicare Medicare Outpatient [id number] 1A [id number] Unknown [facility] [id number] Unknown [id number] 2.16.840.1.670430.3.579.2. 531 Unknown [id number] 2.16.840.1.595959.3.579.2. 531 Unknown [id number] 2.16840.1.082129.3.579.2. 531 Unknown [id number] 2.16840.1.674910.3.579.2. 531 Unknown [id number] 2.16840.1.492091.3.579.2. 531 Unknown [id number] 2.16840.1.719120.3.579.2. 531 Social History Date Type Detail Facility Start: 08-30-2023 End: 05-31-2024 Sex Assigned At [facility] Start: 1945 Sex Assigned At Female [facility] Start: 08-18-2023 End: 12-29-2023 Tobacco smoking status [...] Healthcare How often do you att end bahai or confucianism services? Patient refused [facility] Do you belong to any clubs or organizations such as bahai groups, unions, fraternal or athletic groups, or [...] smoking status NHIS Never smoked tobacco (finding) [facility] Start: 05-22-2024 Tobacco use and exposure Smokeless tobacco non-user [facility] Start: 05-22-2024 End: 08-02-2024 Alcoholic beverage intake Current drinker of alcohol (finding) [facility] History of tobacco use Passive smoker [facility] Start: 11-07-2023 Alcohol Comment OCCASSIONAL [facility] Functional Status Date Assessment Result Facility 03-02-2024 Functional Status N/A [facility] [place] Clinical Notes 08-26-2021 to 08-02-2024 Renny Hansen MD - 08/02/2024 11:00 AM ESTTelephone Encounter - DANIELLE Florence - 07/25/2024 1:07 PM ESTTelephone Encounter - DANIELLE Florence - 07/25/2024 1:07 PM EST Note Date & Type Note Facility 08-02-2024 History of Present illness Narrative Images from the original note were not included. Subjective Patient ID: Breann Starks is a 78 y.o. female who presents for Nausea. Nausea / Vomiting Patient complains of nausea. Started 2 months ago, gradual improvement in last couple days. Patient denies hematemesis, melena, and vomiting. Treatment to date has been zofran--no help per pt. Current Outpatient Medications on File Prior to [...] MOUTH EVERY DAY 90 tablet 0 HYDROcodone-acetaminophen ([place]) 5-325 MG tablet Take 1 tablet by mouth in the morning and 1 tablet in the evening and 1 tablet before bedtime. Multiple Vitamins-Minerals (CENTRUM SILVER 50+WOMEN PO) Take 1 tablet by mouth in the morning. Natural Vitamin D-3 125 MCG (5000 UT) tablet TAKE 1 TABLET BY MOUTH EVERY DAY 90 tablet 1 omeprazole (PriLOSEC) [address] capsule Take 1 capsule (40 mg) by mouth Daily 90 capsule 1 spironolactone (Aldactone) 25 MG tablet TAKE 1 TABLET BY MOUTH EVERY DAY 90 tablet 1 apixaban (Eliquis) 5 MG tablet Take 1 tablet (5 mg) by mouth in the morning and 1 tablet (5 mg) before bedtime. 180 tablet 1 [] ondansetron ODT (Zofran-ODT) 4 MG disintegrating tablet Take 1 tablet (4 mg) by mouth every 8 (eight) hours if needed for nausea or vomiting for up to 7 days 21 tablet 0 verapamil ER (Verelan) 180 MG 24 hr capsule Take 360 mg by mouth in the morning. [DISCONTINUED] fluticasone (Flonase) 50 MCG/ACT nasal spray Administer 1-2 sprays into each nostril Daily for 14 days Shake gently. Before first use, prime pump. After use, clean tip and replace cap. 16 g 0 No current facility-administered medications on file prior [...] (CMS/HCC) COPD (chronic obstructive pulmonary disease) (CMS/HCC) COPD exacerbation (CMS/HCC) 10/17/2023 Coronary artery disease (CMS/HCC) Diastolic dysfunction Essential hypertension (CMS/HCC) History of tobacco abuse Nonalcoholic steatohepatitis (LOJA) Obstructive sleep apnea Osteoarthritis Paroxysmal atrial fibrillation (CMS/HCC) Peptic ulcer disease Secondary pulmonary arterial hypertension (CMS/HCC) Sick sinus syndrome (CMS/HCC) Spinal stenosis, lumbar region with neurogenic claudication SVT (supraventricular tachycardia) ([facility]/HCC) URTI (acute upper respiratory infection) Vertigo Vitamin D deficiency Past Surgical History: Procedure Laterality Date APPENDECTOMY HYSTERECTOMY INSERT / REPLACE / REMOVE PACEMAKER OTHER SURGICAL HISTORY Abalation REVERSE TOTAL SHOULDER ARTHROPLASTY Left 12/29/2021 DR AMIN ROTATOR CUFF REPAIR Right SHOULDER ARTHROSCOPY Bilateral (L) , (R) x3 TOTAL KNEE ARTHROPLASTY Bilateral TRIGGER FINGER RELEASE Left RF Visit Vitals BP 134/72 Pulse 60 Temp 98.4 F Ht 4' 11 Wt 222 lb SpO2 95% BMI 44.84 kg/m Smoking Status Former BSA 2.05 m Review of Systems Constitutional: Positive for fatigue. Negative for fever. Gastrointestinal: Positive for constipation and nausea. Negative for abdominal distention, abdominal pain, anal bleeding, blood in stool, diarrhea, rectal pain and vomiting. Objective Physical Exam Vitals reviewed. Constitutional: General: She is not in acute distress. Appearance: Normal appearance. She is well-developed. She is obese. HENT: Head: Normocephalic and atraumatic. Right Ear: Tympanic membrane and ear canal normal. Left Ear: Tympanic membrane and ear canal normal. Nose: Nose normal. Mouth/Throat: Mouth: Mucous membranes are moist. Pharynx: Oropharynx is clear. Eyes: General: No scleral icterus. Conjunctiva/sclera: Conjunctivae [...] Abdomen is flat. Bowel sounds are normal. There is no distension. Palpations: Abdomen is soft. There is no mass. Tenderness: There is no abdominal tenderness. There is no guarding or rebound. Hernia: No hernia is present. Musculoskeletal: General: Normal range of motion. Cervical [...] Diagnoses and all orders for this visit: Iron deficiency anemia due to chronic blood loss - Ambulatory referral to Hematology; Future - She needs IV Iron. PO is worsening her baseline constipation. Start oral colce daily. - This office visit was spent in consultation regarding the patient's current medical problems, differential diagnoses, testing/imaging results, and treatment options. Greater than 25 minutes was spent in [id number] consultation and coordination of care. Persistent atrial fibrillation (HCC) (CMS/HCC) Nausea - FL upper GI double contrast w KUB; Future Follow up in about 2 weeks (around 08/16/2024) for Test/Lab Review. documented in this encounter [facility] 07-25-2024 Telephone encounter Note My chart message. [facility] 07-25-2024 Miscellaneous Notes My chart message. documented in this encounter [facility] 07-24-2024 History of Present illness Narrative Images from the original note were not included. HPI Results Additional comments: EMG RESULTS Last edited by Carlene Yan LPN on 07/24/2024 10:50 AM. Subjective Patient ID: Breann Starks is a 78 y.o. female who presents for Results (EMG RESULTS) and post nasal drainage. Pt has had post nasal drainage which she believes is causing nausea x 2 weeks Denies fever,vomiting,nasal congestion Pt states the pain in her left arm has not changed since last visit. Still has significant decrease in ROM and strength of her left arm. Ortho states the problem is her neck, not her shoulder. Pain is constant in left arm. Pt does see pain magment in [place]. Sees their office next week on the . Also following with Cardiology. Will be having some testing done, Cardiac Catheterization, to better assess right sided pressures. Current Outpatient Medications on File Prior to [...] MOUTH EVERY DAY 90 tablet 0 HYDROcodone-acetaminophen ([place]) 5-325 MG tablet Take 1 tablet by mouth in the morning and 1 tablet in the evening and 1 tablet before bedtime. Multiple Vitamins-Minerals (CENTRUM SILVER 50+WOMEN PO) Take 1 tablet by mouth in the morning. Natural Vitamin D-3 125 MCG (5000 UT) tablet TAKE 1 TABLET BY MOUTH EVERY DAY 90 tablet 1 omeprazole (PriLOSEC) [address] capsule Take 1 capsule (40 mg) by mouth Daily 90 capsule 1 spironolactone (Aldactone) 25 MG tablet TAKE 1 TABLET BY MOUTH EVERY DAY 90 tablet 1 apixaban (Eliquis) 5 MG tablet Take 1 tablet (5 mg) by mouth in the morning and 1 tablet (5 mg) before bedtime. 180 tablet 1 verapamil ER (Verelan) 180 MG 24 hr capsule Take 360 mg by mouth in the morning. [DISCONTINUED] gabapentin (Neurontin) 300 MG capsule Take 300 mg by mouth in the morning and 300 mg in the evening. No current facility-administered medications on file prior [...] emphysema (CMS/HCC) COPD (chronic obstructive pulmonary disease) ([facility]) COPD exacerbation ([facility]/HCC) 10/17/2023 Coronary artery disease ([facility]/HCC) Diastolic dysfunction Essential hypertension ([facility]/HCC) History of tobacco abuse Nonalcoholic steatohepatitis (LOJA) Obstructive sleep apnea Osteoarthritis Paroxysmal atrial fibrillation ([facility]/HCC) Peptic ulcer disease Secondary pulmonary arterial hypertension ([facility]/HCC) Sick sinus syndrome ([facility]/HCC) Spinal stenosis, lumbar region with neurogenic claudication SVT (supraventricular tachycardia) ([facility]/HCC) URTI (acute upper respiratory infection) Vertigo Vitamin D deficiency Past Surgical History: Procedure Laterality Date APPENDECTOMY HYSTERECTOMY INSERT / REPLACE / REMOVE PACEMAKER OTHER SURGICAL HISTORY Abalation REVERSE TOTAL SHOULDER ARTHROPLASTY Left 12/29/2021 DR AMIN ROTATOR CUFF REPAIR Right SHOULDER ARTHROSCOPY Bilateral (L) , (R) x3 TOTAL KNEE ARTHROPLASTY Bilateral TRIGGER FINGER RELEASE Left RF Visit Vitals BP 124/68 Pulse 60 Ht 4' 11 Wt 227 lb SpO2 96% BMI 45.85 kg/m Smoking Status Former BSA 2.07 m Review of Systems Constitutional: Positive for appetite change (States smells can make her sick, taste is off). Negative for chills, fatigue and fever. HENT: Positive for postnasal drip. Dry mouth Respiratory: Negative for cough, shortness of breath and wheezing. Cardiovascular: Negative for chest pain, palpitations and leg swelling. Gastrointestinal: Positive for nausea. Negative for abdominal pain, constipation, diarrhea and vomiting. Musculoskeletal: Positive for arthralgias, back pain and neck pain. Skin: Negative for rash. Objective Physical Exam Vitals reviewed. Constitutional: General: She is not in acute distress. Appearance: Normal appearance. She is well-developed. She is obese. HENT: Head: Normocephalic and atraumatic. Eyes: General: No scleral icterus. Conjunctiva/sclera: Conjunctivae normal. Cardiovascular: Rate and Rhythm: Normal rate and regular rhythm. Pulses: Normal pulses. Heart sounds: Normal heart sounds. No murmur heard. Comments: LUE +2 pitting edema Pulmonary: Effort: Pulmonary effort is normal. No respiratory distress. Breath sounds: Normal breath sounds and air entry. No wheezing, rhonchi or rales. Musculoskeletal: Left shoulder: Decreased range of motion. Decreased strength. Cervical back: Normal range of motion. Left lower le+ Edema present. Skin: General: Skin is warm and dry. Capillary Refill: Capillary refill takes less than 2 seconds. Neurological: General: No focal deficit present. Mental Status: She is alert and oriented to person, place, and time. Psychiatric: Mood and Affect: Mood normal. Behavior: Behavior normal. Assessment/Plan Diagnoses and all orders for this visit: Cervical radiculopathy EMG reviewed with pt and her significant other. Advised that it showed a left sided C6 radiculopathy which is consistent with pt's symptoms. They will discuss further with Pain Management and consider injection over the C6 nerve root. Neck pain on left side Can continue Garryowen as needed for pain. Radicular pain in left arm Partner would like to know how much of her left arm function will return after the radiculopathy is treated. Advised strength and ROM may improve after C6 nerve pain is addressed, but there are no guarantees, and she may need additional Physical Therapy to work on the ROM and strength. 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 - CBC and differential; Future - Iron + transferrin + TIBC; Future Will recheck with upcoming labs as recommended by Dr. Hansen at her last appointment. Iron deficiency anemia due to chronic blood loss - CBC and differential; Future - Iron + transferrin + TIBC; Future Will notify pt of the results once received. Post-nasal drip - fluticasone (Flonase) 50 MCG/ACT nasal spray; Administer 1-2 sprays into each nostril Daily for 14 days Shake gently. Before first use, prime pump. After use, clean tip and replace cap. Was told by Cardiology not to take anti-histamine medication. Will have her start Flonase as prescribed before bed for the next two weeks. Should gradually work to alleviate the PND that is likely causing the nausea. Nausea - ondansetron ODT (Zofran-ODT) 4 MG disintegrating tablet; Take 1 tablet (4 mg) by mouth every 8 (eight) hours if needed for nausea or vomiting for up to 7 days Patient can start Zofran ODT as needed for nausea. Encouraged her to take it as soon as she wakes up if the nausea begins. Stay hydrated. Pulmonary hypertension (CMS/HCC) The patient is seeing a medical research tech for this condition, treatment is deferred to that specialist. Correspondence from that specialist and any available testing were reviewed during today's visit. She will be having Cardiac Catheterization for further evaluation of the pulmonary hypertension. Other thrombophilia Will recheck with updated labs. Follow up in about 4 weeks (around 08/21/2024) for Next scheduled follow-up with Dr. Hansen. documented in this encounter [facility] 07-24-2024 Telephone encounter Note Will discuss with pt at [facility] OV [facility] 07-24-2024 Miscellaneous Notes Will discuss with pt at [facility] OV Call after mammogram with plan. See last OV. documented in this encounter [facility] 07-18-2024 Note [place] [facility] - [facility] Subjective Breann Starks is a 78 y.o. year old female patient being seen for Atrial Fibrillation, PACEMAKER, Coronary Artery Disease, Hypertension, Sinus node dysfunction (HAS [facility] PAC[facility]), Obesity, and Edema Patient Active Problem List Diagnosis Disorder of bursae of shoulder region Chronic obstructive lung disease (CMS/HCC) Atherosclerosis of tling[place] & [place] coronary artery of tling[place] & [place] heart without angina pectoris Diaphragmatic hernia Edema [...] Types: Cigarettes Quit date: 2000 Years since quittin.8 Smokeless tobacco: Never Substance [...] normal EKG Ech (more content not included)... [facility] 07-05-2024 Telephone encounter Note Call after mammogram with plan. See last OV. [facility] 07-05-2024 History of Present illness Narrative Images [...] MOUTH EVERY DAY 90 tablet 0 HYDROcodone-acetaminophen ([place]) 5-325 MG tablet Take 1 tablet by [...] Greater than 45 minutes was spent in [id number] consultation and coordination of care. Follow up in about 4 months (around 11/05/2024) for Call after mammogram. documented in this encounter [facility] 05-22-2024 Note HNO ID: [id number] Author: BOO BUCHANAN PA-C Service: ? Author Type: Physician Marketer Type: Progress Notes Filed: 05/22/2024 13:53 Note [...] Duration Units: Months Frequency: Intermittent Intervention/Comfort measure: Reposition;Relaxation;Medication ;Positioning baclofen, percocet HISTORY: Breann Starks has complains [...] She was recommended for second opinion at [facility]. She also had a CRP and [...] No date: COPD (chronic obstructive pulmonary disease) ([facility]) SOCIAL HISTORY: Tobacco Use: Never EXAMINATION: GENERAL: [...] 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 ([facility]) T84.84XA CT SHOULDER WO IVCON LEFT Z96.612 [...] of the hardware. Bone scan performed at [facility]' to be uploaded to the system. Boo Buchanan (more content not included)... [facility] 05-22-2024 History of Present illness Narrative Images [...] Duration Units: Months Frequency: Intermittent Intervention/Comfort measure: Reposition;Relaxation;Medication ;Positioning baclofen, percocet HISTORY: Breann Starks has complains [...] She was recommended for second opinion at [facility]. She also had a CRP and [...] No date: COPD (chronic obstructive pulmonary disease) ([facility]) SOCIAL HISTORY: Tobacco Use: Never EXAMINATION: GENERAL: [...] 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 ([facility]) T84.84XA CT SHOULDER WO IVCON LEFT Z96.612 [...] of the hardware. Bone scan performed at [facility]' to be uploaded to the system. Boo Buchanan PA-C documented in this encounter [facility] 05-22-2024 Note HNO ID: [id number] Author: JYOTHI CRUZ RT(R) Service: ? Author [...] PATIENT PRESENTS WITH AN IMPLANTABLE OR ATTACHED CONCRETE PAVING MACHINE OPERATOR: No RADIOLOGY DEPARTMENT: General X-ray: Exam(s) Completed: Upper Extremity X-Ray(s): Shoulder, AP / TRUE AP / AXILLARY / SUPRA OUTLET left PERIPHERAL IV DATA: Not applicable SIGNED BY: RT Chaparrita(R) May 22, 2024 1:25 PM [facility] 05-22-2024 History of Present illness Narrative Radiology [...] PATIENT PRESENTS WITH AN IMPLANTABLE OR ATTACHED CONCRETE PAVING MACHINE OPERATOR: No RADIOLOGY DEPARTMENT: General X-ray: Exam(s) Completed: Upper Extremity X-Ray(s): Shoulder, AP / TRUE AP / AXILLARY / SUPRA OUTLET left PERIPHERAL IV DATA: Not applicable SIGNED BY: RT Chaparrita(R) May 22, 2024 1:25 PM documented in this encounter [facility] 03-02-2024 Note Chief Complaint consultation for anemia HPI Staff 78 year old female presents on consultation from [facility] [place] [facility] for anemia. Labs completed yesterday with [...] spinal stenosis, cervical radiculopathy; referred from [facility] for anemia, low iron, and positive [...] (paroxysmal supraventricular t (more content not included)... [facility] Comment on above: Result Comment: Elec tronically Signed By: CATHERINE CUBA, Ortega Baeza.juan pablo\Date and Time Signed: 03/02/24 13:01 EDT 01-17-2024 Note Cardiovascular Medic ine [facility] SUBJECTIVE Chief Complaint Patient presents with Atrial Fibrillation Breann Starks is a 78 y.o. female here for follow-up. HPI PMHx: A-fib, atrial tachycardia s/p ablation 2005, sick sinus syndrome s/p PPM 10/2020 dual-chamber [employer], COPD, mild CAD s/p cardiac cath 2010, SHAWANDA noncompliant with mask, and obesity. She has been doing well since last seen. No significant changes. Denies c/o CP, dyspnea, orthopnea, PND, LE edema, dizziness/LH, palpitations, syncope. Patient Active Problem List Diagnosis Disorder of bursae of shoulder region Chronic obstructive lung disease (CMS/HCC) Atherosclerosis of tling[place] & [place] coronary artery of tling[place] & [place] heart without angina pectoris Diaphragmatic hernia Edema [...] Final Monocytes Absolu (more content not included)... [facility] 01-17-2024 Note Patient here for 6 m o follow up persistent afib, CAD, hypertension, and sinus node dysfunction. Her device was interrogated in the office last month. Denies chest pain, SOB, lightheadedness/syncope, and bleeding on Eliquis. Says she feels great. Review of Systems Musculoskeletal: Positive for back pain. Neurological: Positive for numbness. All other systems reviewed and are negative. [facility] 10-07-2021 Evaluation note Encounter Date Diagnosis Assessment Notes Sep, LOJA (nonalcoholic steatohepatitis ) (ICD-10 - K75.81) OBTAIN FIBROSURE RESULTS FROM [facility] REASSURANCE ON RESULTS PT ENCOURAGED WEIGHT LOSS RTO ONE YEAR WITH LABS ANNUALLY Sep, Unspecified cirrhosis of liver (ICD-10 - K74.60) [employer] Other 12-15-2021 Evaluation note* Encounter Date Diagnosis Assessment Notes Treatment Notes Treatment Clinical Notes Aug, Nonalcoholic steatohepatitis (LOJA) (ICD-10 - K75.81) RTO 6-8 WEEKS Aug, Unspecified cirrhosi s of liver (ICD-10 - K74.60) Aug, Morbid obesity (ICD- 10 - E66.01) [employer] Other Evaluation + Plan note No data available for this section [facility] General Surgery [place] Evaluation noteNo assessment information available [facility] Work Phone: Evaluation note* Diagnosis 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)- Primary Left shoulder pain, unspecified chronicity Left shoulder pain, unspecified chronicity [facility] Left shoulder pain, unspecified chronicity [facility] Diagnosis Acute on chronic diastolic (congestive) heart failure (CMS/HCC) [facility] Diagnosis Essential hypertension (CMS/HCC)- Primary [...] syndrome, unspecified type [facility] Diagnosis Essential hypertension (CMS/HCC)- Primary [...] Unspecified essential hypertension documented in this encounter [facility]* Diagnosis Essential hypertension (CMS/HCC)- Primary Unspecified essential hypertension Persistent atrial fibrillation (HCC) (CMS/HCC) Atrial fibrillation Chronic bilateral low back pain with bilateral sciatica Medicare annual wellness visit, subsequent Chronic obstructive pulmonary disease, unspecified COPD type [...] chronic diastolic (congestive) heart failure (CMS/HCC)- Primary Cervical radiculopathy- Primary Brachial neuritis or radiculitis nos Neck pain on left side Radicular pain in left arm Unspecified neuralgia, neuritis, and radiculitis 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 Unspecified anemia Iron deficiency anemia due to chronic blood loss Iron deficiency anemia secondary to blood loss (chronic) Post-nasal drip Postnasal drip Nausea Nausea alone Pulmonary hypertension (CMS/HCC) Other chronic pulmonary heart diseases Other thrombophilia (CMS/HCC) documented in this encounter [facility]* Diagnosis Essential hypertension (CMS/HCC)- Primary Unspecified essential hypertension Persistent atrial fibrillation (HCC) (CMS/HCC) Atrial fibrillation Chronic bilateral low back pain with bilateral sciatica Medicare annual wellness visit, subsequent Chronic obstructive pulmonary disease, unspecified COPD type [...] chronic diastolic (congestive) heart failure (CMS/HCC)- Primary 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- Primary Unspecified anemia Iron deficiency anemia due to chronic blood loss Iron deficiency anemia secondary to blood loss (chronic) documented in this encounter [facility]* Diagnosis Essential hypertension (CMS/HCC)- Primary Unspecified essential hypertension Persistent atrial fibrillation (HCC) (CMS/HCC) Atrial fibrillation Chronic bilateral low back pain with bilateral sciatica Medicare annual wellness visit, subsequent Chronic obstructive pulmonary disease, unspecified COPD type [...] deficiency anemia secondary to blood loss (chronic) Persistent atrial fibrillation (HCC) (CMS/HCC) Atrial fibrillation Nausea Nausea alone [facility] [...] Surgical History pacemaker Hospitalization History see above [employer] Other Hospital Discharge instructions No data available for this section [facility] General Surgery [employer] Progress note No data available for this section [facility] General Surgery [employer] Reason for referral (narrative)* Diagnostic Procedure Only (Routine) - Closed Specialty Diagnoses / Procedures Referred By Millie egan Referred To Contact XR IMAGING Diagnoses Left shoulder pain, unspecified chronicity Procedures XR SHOULDER ORTHO 4V AP/TRUE AP/LAT/OUTLET LEFT RADEX SHOULDER COMPLETE MINIMUM 2 VIEWS Boo Buchanan PA-C [address] [place] [address] [place] [address] Referral ID Status Reason Start Date Expiration Date V isits Requested Visits Authorized [id number] Closed Auto-Generate d Referral 05/08/2024 06/07/2025 1 1 [facility] for visit Narrative* Diagnostic Procedure Only (Routine) - Closed Specialty Diagnoses / Procedures Referred By Millie egan Referred To Contact XR IMAGING Diagnoses Left shoulder pain, unspecified chronicity Procedures XR SHOULDER ORTHO 4V AP/TRUE AP/LAT/OUTLET LEFT RADEX SHOULDER COMPLETE MINIMUM 2 VIEWS Boo Buchanan PA-C [address] [place] [address] [place] [address] Referral ID Status Reason Start Date Expiration Date V isits Requested Visits Authorized [id number] Closed Auto-Generate d Referral 05/08/2024 06/07/2025 1 1 [facility] Summary Purpose Family History No Family [...] EXTREMITY W/O CONTRAST MATERIAL Boo Buchanan PA-C [address] [place] [address] [place] [address] Referral ID Status Reason Start Date Expiration Date Visits Requested Visits Authorized [id number] New Request Auto-Generat ed Referral 05/22/2024 06/21/2025 1 1 Specialty Diagnoses / Procedures Referred By Millie egan Referred To Contact XR IMAGING Diagnoses Left shoulder pain, unspecified chronicity Procedures XR SHOULDER ORTHO 4V AP/TRUE AP/LAT/OUTLET LEFT RADEX SHOULDER COMPLETE MINIMUM 2 VIEWS Boo Buchanan PA-C [address] [place] [address] [place] [address] Referral ID Status Reason Start Date Expiration Date V isits Requested Visits Authorized [id number] Closed Auto-Generate d Referral 05/08/2024 06/07/2025 1 1 Additional Source Comments INFORMATION SOURCE (unrecogn ized section and content) DATE CREATED AUTHOR 10/23/2021 [facility] DATE CREATED AUTHOR AUTHOR'S ORGANIZ ATION 01/22/2022 [facility] DATE CREATED AUTHOR AUTHOR'S ORGANIZ ATION 02/18/2023 [facility] DATE CREATED AUTHOR AUTHOR'S ORGANIZ ATION 03/11/2024 [facility] DATE CREATED AUTHOR AUTHOR'S ORGANIZ ATION 04/30/2024 [facility] DATE CREATED AUTHOR AUTHOR'S ORGANIZ ATION 05/04/2024 [facility] DATE CREATED AUTHOR AUTHOR'S ORGANIZ ATION 05/24/2024 [facility] DATE CREATED AUTHOR AUTHOR'S ORGANIZ ATION 07/20/2024 [facility] DATE CREATED AUTHOR AUTHOR'S ORGANIZ ATION 08/05/2024 [facility] dical Specialists EPIC REASON FOR VISIT (unrecogniz [...] ORTHOPAEDIC SURGERY Pedro Pablo Cruz PA [address] [facility] [address] [place] [address] González Alvarado MD [address] [place] [address] Referral ID Status Reason Start Date Expiration Date V isits Requested Visits Authorized [id number] Authorized 05/08/2024 09/11/2024 99 99 Reason Comments Med Refill Reason Comments Establish Care Previous pcp Dr Damian adSees cardiology-dr chakoDr. Holly-- orthopedic Hypertension Reason Comments Results EMG RESULTS post nasal drainage Reason Comments Nausea Care Teams (unrecognized sec tion and content) [...] October 11, 2023 End: October 11, 2023 Game Author Relationship Specialty Start Date End Date Shaikh [...] May 02, 2024 End: May 02, 2024 Game Author Relationship Specialty Start Date End Date Luisana Johnson MD [address] [place] [address] PCP - General 01/05/06 Pedro Pablo Cruz MD [address] [place] [address] Referring Infectious Diseases 05/07/24 Game Author Relationship Specialty Start Date End Date Luisana Johnson MD [address] [place] [address] PCP - General 01/05/06 Pedro Pablo Cruz MD [address] [place] [address] Referring Infectious Diseases 05/07/24 Game Author Relationship Specialty Start Date End Date Luisana Johnson MD [address] [place] [address] PCP - General 01/05/06 Pedro Pablo Cruz MD [address] [place] [address] Referring Infectious Diseases 05/07/24 Game Author Relationship Specialty Start Date End Date Wesley Long MD [address] [place] [phone] PCP - General Family Medicine 05/17/24 Monster Calvillo NP [address] [place] [address] Nurse Practitioner Family Medicine 05/17/24 Game Author Relationship Specialty Start Date End Date Wesley Long MD [address] [place] [phone] PCP - General Family Medicine 05/17/24 Monster Calvillo NP [address] [place] [address] Nurse Practitioner Family Medicine 05/17/24 Game Author Relationship Specialty Start Date End Date Wesley Long MD [address] [place] [phone] PCP - General Family Medicine 05/17/24 Monster Calvillo NP [address] [place] [address] Nurse Practitioner Family Medicine 05/17/24 Game Author Relationship Specialty Start Date End Date Wesley Long MD [address] [place] [phone] PCP - General Family Medicine 05/17/24 Monster Calvillo NP [address] [place] [address] Nurse Practitioner Family Medicine 05/17/24 Game Author Relationship Specialty Start Date End Date Wesley Long MD [address] [place] [phone] PCP - General Family Medicine 05/17/24 Monster Calvillo NP [address] [place] [address] Nurse Practitioner Family Medicine 05/17/24 Game Author Relationship Specialty Start Date End Date Wesley Long MD [address] [place] [phone] PCP - General Family Medicine 05/17/24 Monster Calvillo NP [address] [place] [address] Nurse Practitioner Family Medicine 05/17/24 Game Author Relationship Specialty Start Date End Date Wesley Long MD [address] [place] [phone] PCP - General Family Medicine 05/17/24 Monster Calvillo NP [address] [place] [address] Nurse Practitioner Family Medicine 05/17/24 Game Author Relationship Specialty Start Date End Date Wesley Long MD [address] [place] [phone] PCP - General Family Medicine 05/17/24 Monster Calvillo NP [address] [place] [address] Nurse Practitioner Family Medicine 05/17/24 Game Author Relationship Specialty Start Date End Date Wesley Long MD [address] [place] [phone] PCP - General Family Medicine 05/17/24 Monster Calvillo NP [address] [place] [address] Nurse Practitioner Family Medicine 05/17/24 Game Author Relationship Specialty Start Date End Date Wesley Long MD [address] [place] [phone] PCP - General Family Medicine 05/17/24 Monster Calvillo NP [address] [place] [address] Nurse Practitioner Family Medicine 05/17/24 Game Author Relationship Specialty Start Date End Date Wesley Long MD [address] [place] [address] PCP - General Family Medicine 05/17/24 Monster Calvillo NP [address] [place] [address] Nurse Practitioner Family Medicine 05/17/24 Goals (unrecognized [...] or prosecute any alcohol or drug abuse patient.[facility] the event this information is protected by the Federal Confidentiality of Alcohol and Drug Abuse Patient Records regulations: The Federal rules restrict any use of the information to criminally investigate or prosecute any alcohol or drug abuse patient.[facility] Hospital[facility] the event this information is protected by the Federal Confidentiality of Alcohol and Drug Abuse Patient Records regulations: The Federal rules restrict any use of the information to criminally investigate or prosecute any alcohol or drug abuse patient.[facility] FOR RECORDS PERTAINING TO PATIENTS WHO [...] BE BASED ON THE PRIMARY CLINICAL RECORDS. [facility] [employer] [facility]. provides no warranty or guarantee of the accuracy or completeness of information in this document.
== END 2024-08-07 08:22 | disposition home or self-care (01) ==
LOC: FL 08:21
PROVIDERS: PCP Internal Medicine; Visit Provider Internal Medicine
DX: R11.0 Nausea (principal); K21.9 Gastro-esophageal reflux disease without esophagitis
CPT/HCPCS: 74246; 76120

== ENCOUNTER 2024-08-20 08:49 | Day surgery (SDC) | payer MEDICARE, SELFPAY ==
[2024-08-20 09:21] VITALS: BP 133/66; PULSE 60; TEMP 36.2; O2SAT 98
[2024-08-20 10:09] VITALS: BP 216/89; PULSE 60; O2SAT 97
[2024-08-20] MEDS: BUPIVACAINE HCL 0.25% PF 25 MG/10 ML VIAL INJ (10:12)
[2024-08-20 10:13] VITALS: BP 206/88; PULSE 60; O2SAT 96
[2024-08-20] MEDS: DEXAMETHASONE SOD PHOS 10 MG/ML VIAL INJ (10:13)
[2024-08-20] MEDS: IOHEXOL 240 MG/ML - 10 ML VIAL 12 MG INJ (10:13)
[2024-08-20] MEDS: LIDOCAINE HCL 2% 400 MG/20 ML MDV 3 ML INJ (10:13)
--- NOTE | 2024-08-20 10:13 | P.ON_ITS ---
Date of procedure: 08/20/24 Pre-op diagnosis: M54.12 Post-op diagnosis: same as pre-op Procedure: Procedure: Left C5-6, 6-7 transforaminal epidural steroid injection Medications: Bupivacaine 0.25% 1cc, lidocaine 2% 1cc, dexamethasone 10mg The patient was seen and examined in the preoperative holding area.? Informed consent was obtained and placed on the chart.? Patient was brought to the medical procedure unit and placed in the prone position where a timeout was completed verifying the correct patient, procedure site, position, and planned special equipment using sterile aseptic technique.? Under direct fluoroscopic visualization a 25-gauge Quincke tipped spinal needle was advanced to the designated neural foramen where contrast dye was injected to show adequate spread.? The needle was inserted at level left C5-6. There was no evidence of vascular or adverse uptake.? Epidural spread was appreciated.? The above- mentioned injectate was then placed in a 1.5 mL aliquot preceded by negative aspiration.? The needle was removed. The needle was inserted and the procedure repeated at level left C6-7.? The surgery site was covered.? Patient was taken to the postprocedural recovery area and monitored for an appropriate length of time before found suitable for discharge in the accompaniment of a responsible adult. Anesthesia: Local Surgeon: Miguel Murphy Pathology: none sent Condition: stable Disposition: no change
== END 2024-08-20 10:18 | disposition home or self-care (01) ==
LOC: SURGOUT 08:50
PROVIDERS: PCP Internal Medicine; Visit Provider Anesthesiology
DX: M54.12 Radiculopathy, cervical region (principal)
CPT/HCPCS: 64479; 64480; J0665; J1100; Q9966

== ENCOUNTER 2024-08-29 09:25 | Outpatient (OUT) | payer MEDICARE, SELFPAY ==
--- NOTE | 2024-08-29 09:54 | PM.CN ---
Consult Note: HPI Data of Consult Patient: known to practice within the last 3 years Requesting Physician: Claire Clement NP Primary Care Provider: FAVIAN LUNA Consult Narrative Reason for consult: chronic neck, left shoulder and LUE pain Narrative: Breann Starks a pleasant 78 year old female presents for evaluation of chronic left shoulder, neck and LUE pain with numbness tingling and weakness. Hx of left reverse total shoulder with subsequent pain, however 6 months ago she noticed increase in LUE pain/weakness. Pt has been cleared by orthopedics. failed HEP/PT greater than [address] shows extensive DDD, and EMG of BUE reveals chronic left C6 radiculopathy. Pt had been on gabapentin which caused side effects and she discontinued, cannot take NSAIDs on eliquis. mild relief from tylenol, baclofen, and hydrocodone-acetaminophen without side effects. Pain today 8/10 burning pressure with numbness tingling and weakness of LUE. recently underwent left C5/6 C6/7 TFESI with no improvement per pt cc:: CC: Claire Clement NP [facility] Medical History (Updated 08/01/24 @ 10:33 by Claire Clement NP) Arthritis ?M19.90 - Unspecified osteoarthritis, unspecified site (ICD-10) Chronic obstructive pulmonary disease ?J44.9 - Chronic obstructive pulmonary disease, unspecified (ICD-10) Peptic ulcer ?K27.9 - Peptic ulcer, site unspecified, unspecified as acute or chronic, without hemorrhage or perforation (ICD-10) Dyspnea on exertion ?R06.09 - Other forms of dyspnea (ICD-10) Anemia ?D64.9 - Anemia, unspecified (ICD-10) Hypertension ?I10 - Essential (primary) hypertension (ICD-10) Extremity edema ?R60.0 - Localized edema (ICD-10) Congestive heart failure ?I50.9 - Heart failure, unspecified (ICD-10) Atrial fibrillation ?I48.91 - Unspecified atrial fibrillation (ICD-10) Shoulder pain ?M25.519 - Pain in unspecified shoulder (ICD-10) Fatty liver ?K76.0 - Fatty (change of) liver, not elsewhere classified (ICD-10) History of shingles ?Z86.19 - Personal history of other infectious and parasitic diseases (ICD-10) Osteoarthritis ?M19.90 - Unspecified osteoarthritis, unspecified site (ICD-10) Pacemaker ?Z95.0 - Presence of cardiac pacemaker (ICD-10) Hiatal hernia ?K44.9 - Diaphragmatic hernia without obstruction or gangrene (ICD-10) Low back pain ?M54.50 - Low back pain, unspecified (ICD-10) Irregular heart beat ?I49.9 - Cardiac arrhythmia, unspecified (ICD-10) Surgical History History of shoulder replacement ?Z96.619 - Presence of unspecified artificial shoulder joint (ICD-10) S/P rotator cuff repair ?Z98.890 - Other specified postprocedural states (ICD-10) History of colonoscopy ?Z98.890 - Other specified postprocedural states (ICD-10) S/P YANELI-BSO ?Z90.710 - Acquired absence of both cervix and uterus (ICD-10) ?Z90.722 - Acquired absence of ovaries, bilateral (ICD-10) ?Z90.79 - Acquired absence of other genital organ(s) (ICD-10) H/O cardiac catheterization ?Z98.890 - Other specified postprocedural states (ICD-10) H/O arthroscopy of shoulder ?Z98.890 - Other specified postprocedural states (ICD-10) H/O arthroscopy of knee ?Z98.890 - Other specified postprocedural states (ICD-10) History of appendectomy ?Z90.49 - Acquired absence of other specified parts of digestive tract (ICD-10) History of total knee arthroplasty ?Z96.659 - Presence of unspecified artificial knee joint (ICD-10) Social History Within the past year, how often did you have a drink containing alcohol: monthly or less Smoking status: Former smoker Non-prescribed substance use: denies use Previous occupational history: retired Highest level of school completed/degree received: high school graduate Little interest or pleasure in doing things: not at all Feeling down, depressed, or hopeless: not at all Meds Home Medications and Allergies Home Medications ?Medication ?Instructions ?Recorded ?Confirmed ?Type cholecalciferol (vitamin D3) 125 5,000 unit PO DAILY 02/16/23 08/20/24 History mcg (5,000 unit) tablet (Vitamin D3) flecainide 100 mg tablet 100 mg PO Q12H 02/16/23 08/20/24 History omeprazole 40 mg capsule,delayed 40 mg PO DAILY 02/16/23 08/20/24 History release spironolactone 25 mg tablet 25 mg PO DAILY 02/16/23 08/20/24 History (Aldactone) verapamil 180 mg tablet,extended 180 mg PO Q12H 02/16/23 08/20/24 History release (Calan SR) apixaban 5 mg tablet (Eliquis) 5 mg PO BID 05/11/23 08/20/24 History furosemide 40 mg tablet 40 mg PO DAILY 03/01/24 08/20/24 History tramadol 50 mg tablet 50 mg PO QPM 03/06/24 08/20/24 History naloxone 4 mg/actuation nasal 4 mg intranasal Q3M PRN opioid 05/17/24 08/20/24 Rx spray (Narcan) overdose #2 ea benzonatate 100 mg capsule 100 mg PO TID PRN cough #14 caps 05/25/24 08/20/24 Rx cephalexin 500 mg capsule 500 mg PO Q8H 7 days #21 caps 05/25/24 08/20/24 Rx doxycycline hyclate 100 mg tablet 100 mg PO BID 7 days #14 tabs 05/25/24 08/20/24 Rx ipratropium 0.5 mg-albuterol 3 mg 3 ml inhalation Q6H PRN shortness 05/25/24 08/20/24 Rx (2.5 mg base)/3 mL nebulization of breath #90 mL soln prednisone 50 mg tablet 50 mg PO DAILY 5 days #5 tabs 05/25/24 08/20/24 Rx baclofen 10 mg tablet 10 mg PO TID PRN muscle spasm #90 06/21/24 08/20/24 Rx tabs hydrocodone 5 mg-acetaminophen 325 1 tab PO TID PRN pain #90 tabs 06/21/24 08/20/24 Rx mg tablet Allergies Allergy/AdvReac Type Severity Reaction Status Date / Time No Known Drug Allergies Allergy Verified 08/20/24 09:26 Exam Constitutional Documenting provider has reviewed patient's vital signs: yes Common normals: no apparent distress, oriented x3, healthy appearing, alert and well nourished General appearance: cooperative [facility] Common normals: normocephalic, hearing grossly normal bilaterally and moist oral mucous membranes Head and scalp: normocephalic Eye Common normals: PERRL Pupil: PERRL Neck & C-Spine Common normals: full ROM General: normal visual inspection Cervical spine: cervical ROM abnormal, pain with cervical ROM, cervical spine tenderness and trapezius muscle tenderness Other: negative spurlings sensation intact BUE strength 3/5 in LUE 5/5 in RUE Chest Common normals: inspection of chest normal Respiratory Common normals: normal respiratory effort, no retractions and no use of accessory muscles Extremity Left upper extremity: shoulder joint Other: limited ROM, moderate to severe pain Neuro Common normals: oriented x3, CN's II-XII intact bilaterally, moves all extremities, no focal motor deficits, no sensory deficits noted and deep tendon reflexes 2+ bilaterally Sensorium/orientation: alert Motor exam: strength 5/5 throughout and no movement abnormalities noted Psych Common normals: mental status grossly normal, thought process normal, cooperative, affect normal, speech normal and activity/motor behavior normal Speech: normal speech Thought process: normal thought process Assessment and Plan Assessment and Plan (1) Chronic left shoulder pain: (2) Degenerative disc disease, cervical: (3) Cervical radiculopathy: Plan proceed with left suprascapular and axillary nerve block x1 under fluoroscopy working towards RFA continue baclofen 10mg TID PRN continue NNCP f/u after injection, if no relief refer back to ortho
== END 2024-08-29 09:26 | disposition home or self-care (01) ==
LOC: PM 09:25
PROVIDERS: PCP Internal Medicine; Visit Provider Nurse Practitioner
DX: M25.512 Pain in left shoulder (principal); M50.30 Other cervical disc degeneration, unspecified cervical region; M54.12 Radiculopathy, cervical region
CPT/HCPCS: G0463

== ENCOUNTER 2024-09-10 07:47 | Day surgery (SDC) | payer MEDICARE, SELFPAY ==
[2024-09-10 07:58] VITALS: BP 145/67; PULSE 74; TEMP 36.2; O2SAT 96
--- OUTSIDE RECORDS SUMMARY | 2024-09-10 08:03 | XMS_ITS | CCD ---
Author Organization [facility] CliniSyvt Care Team Providers Care Agricultural Loan Officer Name Role Phone ZANE MCGUIRE Admitting Unavailable YANCY HENNESSY Referring Unavailable LUISANA JOHNSON Primary Care Unavailable ZANE MCGUIRE Attending Unavailable YANCY HENNESSY Surgeon Unavailable VT Procedure Practitioner Unavailab Hong Adler Unavailable JOHNSON [...] Primary Care Unavailable JOHNSON ., DR LUISANA aJrquin Attending Unavailable JOHNSON ., DR LUISANA Jarquin [...] ., DR LUISANA Jarquin Primary Care Unavailable ZIEBAMAURY, DR PAULA Bishop [...] LUISANA Jarquin Primary Care Unavailable GRECHNY ., ADNIELLE SHAIKH Consulting Unavailpriyanka jarquin RIVER ., KAYLEY Admitting Unavailable RIVER ., KAYLEY Attending Unavailable WEST, DR HONG Morgan Consulting Unavailable JOHNSON ., [...] ., DR LUISANA Jarquin Primary Care Unavailable FAWMADHURI, H Attending Unavailable FAWWAAlysa, SAHU H Admitting Unavailable SAMSA ., LUIZ Admitting Unavailable SAMSA ., LUIZ Attending Unavailable SAMSA ., LUIZ Consulting Unavailable JOHNSON ., DR LUISANA Jarquin Primary Care Unavailable THANG Clement Attending Provider [phone] MD Cira Sahu Primary Care Provider THANG Clement Attending Provider [phone] Cira CUBA [facility] Primary Care Provider Ortega ALEXANDER Attending Unavailable SHAIKH DENIS Referring Unavailable Ortega ALEXANDER Attending Unavailable MD Cira [facility] Primary Care Provider DO James Jones Attending Provider [phone] YOLY Cruz Attending Provider [phone] Luisana Johnson MD Primary Care Provider Pedro Pablo Cruz MD Unavailable [phone] LUISANA JOHNSON Primary Care Unavailable BOO BUCHANAN Attending Unavailable PEDRO PABLO CRUZ Referring Unavailable LUISANA JOHNSON Primary Care Unavailable BOO BUCHANAN Referring Unavailable Wesley Long MD Primary Care Provider Monster Calvillo NP Unavailable [phone] YANCY HENNESSY Referring Unavailable NICANOR CANNON Attending Unavailable YANCY HENNESSY Referring Unavailable KOLTON ALTMAN Attending Unavailable JR. CARDENAS GEORGE C Attending Unavaila RENNY Barnhart Attending Unavailable RENNY HANSEN Attending Unavailable FASILVANA, Attending Unavailable FASILVANA, SAHU Attending Unavailable ELEANOR LEAHY Attending Unavailable MONSTER CALVILLO Attending Unavailabl e PEDRO PABLO CRUZ Referring Unavailable PEDRO PABLO CRUZ Attending Unavailable FAWWAAlysa, Attending Unavailable FAWWAD, Attending Unavailable FAWWAD, SAHU Attending Unavailable FAWMADHURI, SAHU Attending Unavailable FASILVANA, SAHU Attending Unavailable Santos Denis MDikh Primary Care Provider [phone] Giedraitis , Andrius Vytautwilma Attending Unavailable Giedraitis , Andrius Vytautas Attending Unavailable Giedraitis , Andrius Vytautas Attending Unavailable Giedraitis , Andrius Vytautas Attending Unavailable Giedraitis , Andrius Morganytjoselito Attending Unavailable James Jones Admitting Unavailable James Jones Attending [facility]available [facility] Unavailable Pedro Pablo Cruz Admitting Unavailable Pedro Pablo Cruz Attending Unavailable Fawrialysa, [facility] Primary Care Unavailable Claire Clement Admitting Unavailable Fawrialysa, [facility] Primary Care Unavailable Claire Clement Attending Unavailable Pedro Pablo Cruz Admitting Unavailable Anthony, Pedro Pablo Attending Unavailable Tyrone Renny [facility] Care Unavailable UrbanoClaire singh Admitting Unavailable Fawrid, [facility] Primary Care Unavailable Claire Clement Attending Unavailable Katharina Toledo Attending Unavail able Renny Hansen Primary Care Unavailable Renny Hansen Referring Unavailable Katharina Toledo Admitting Unavail able [facility], [facility] Primary Care Unavailable Kayley Reeder Admitting Unavailable Kayley Reeder Attending Unavailable James Jones Admitting Unavailable James Jones Attending [facility]available [facility] Unavailable Allergies Allergy Classification Reported Allergen(s) Allergy Type Date of Onset Reaction(s) Facility NSAIDs (1 source) meloxicam; Translations: [Mobic] Drug Allergy [facility] Unclassified (1 source) No Known Medication Allergies; Translations: [No Known Medication Allergies] Propensity to adverse reactions (disorder) [facility] (1 source) novacaine; Translations: [novacaine] Propensity to adverse reactions (disorder) 2 [facility] (20 sources) NSAIDs Propensity to adverse reactions 4 HEART ISSUES [facility] (7 sources) Adhesive agent; Translations: [adhesive] Allergy to substance 4 Swelling [facility] (4 sources) NSAIDS (Non-Steroidal Anti-Inflamma; Translations: [NSAIDS (Non-Steroidal Anti-Inflamma] Allergy to substance 4 HEART ISSUES [facility] (20 sources) Digoxin Drug Allergy 4 [facility] Work Phone: (20 sources) Wound Dressing Adhesive Drug Allergy 4 [facility] Medications Current Medications Medication Drug Class(es) Dates Sig (Normalized) Sig (Original) acetaminophen 325 mg / HYDROcodone bitartrate 5 mg oral tablet (20 sources) Opioid Agonist Start: 06-21-2024 take 1 tablet by mouth in the morning, then take 1 tablet by mouth in the evening, then take 1 tablet by mouth at bedtime HYDROcodone-aceta minophen ([place]) 5-325 MG tablet Take 1 tablet by mouth in the morning and 1 tablet in the evening and 1 tablet before bedtime. 06/21/2024 Active Start: 04-11-2024 End: 06-15-2024 take 1 tablet by mouth three times daily as needed for pain HYDROcodone-acetaminophen (Hooker) 5-325 MG tablet Indications: Chronic left shoulder pain Take 1 tablet by mouth 3 (three) times a day as needed for severe pain 90 tablet 05/16/2024 06/15/2024 Active Start: 03-01-2024 take 1 tablet by dirk th twice daily acetaminophen-hydrocodone 325 mg-5 mg or al tablet 1 tab(s), Oral, BID, Refill(s) 0 Start Date: 03/01/24 Status: Ordered amoxicillin 875 mg / clavulanate 125 mg oral tablet (4 sources) Penicillin-class Antibacterial Start: 08-16-2024 End: 08-23-2024 take 1 tablet by mouth in the morning amoxicillin-clavulanate (Augmentin) 875-125 MG tablet Indications: Acute non-recurrent sinusitis, unspecified location Take 1 tablet (875 mg) by mouth in the morning and 1 tablet (875 mg) before bedtime. Do all this for 7 days. 14 tablet 08/16/2024 08/23/2024 Active Start: 07-05-2024 End: 07-15-2024 take 1 tablet [...] mg) before bedtime. 180 tablet 1 12/14/2023 06/11/2024 Active ascorbic acid 100 mg oral tablet (20 sources) Vitamin C take 1 tablet by mouth in the morning Ascorbic Acid (vitamin C) 100 MG tablet Take 100 mg by mouth in the morning. Active baclofen 10 mg oral tablet (20 sources) gamma-Aminobutyri c Acid-ergic Agonist Start: 06-21-2024 take 1 tablet [...] take 1 tablet by mouth once daily cholecalciferol (Natural Vitamin D-3) 5,000 Units tablet Indications: Vitamin D deficiency Take 1 tablet (5,000 Units) by mouth Daily 90 tablet 1 08/24/2024 Active Start: 01-30-2024 take 1 tablet by dirk th once daily Natural Vitamin D-3 125 MCG [...] sulfate 325 mg delayed release oral tablet (20 sources) Start: 03-21-2024 End: 06-19-2024 take 1 [...] 08/02/2024 Discontinued furosemide 40 mg oral tablet (20 sources) Loop Diuretic Start: 03-21-2024 End: 06-19-2024 take 1 tablet by mouth once daily [...] hrs Multiple Vitamins-Minerals (CENTRUM SILVER 50+WOMEN PO) (20 sources) take 1 tablet by mouth in the morning Multiple Vitamins-Minerals (CENTRUM SILVER 50+WOMEN PO) Take 1 tablet by mouth in the morning. Active take 1 tablet by mouth [facility] Multiple Vitamins-Minerals (CENTRUM SILVER 50+WOMEN PO) Take [...] Active Start: 02-15-2023 take 1 capsule by [facility] once daily omeprazole (PriLOSEC) [address] capsule Indications: Peptic ulcer, site unspecified, unspecified as acute or chronic, without hemorrhage or perforation , Peptic ulcer TAKE 1 CAPSULE BY MOUTH EVERY DAY 90 capsule 1 01/11/2024 Active take 1 capsule by [facility] every twenty-four hours Omeprazole 40 [...] by mouth Daily 90 tablet 1 12/13/2023 06/10/2024 Active 24 hr verapamil hydrochloride 180 mg [...] morning. 02/14/2023 Active take 1 capsule by [facility] every twenty-four hours Verapamil HCl [...] # 90 tab(s), Refills(s) 0, Pharmacy: [facility]/pharmacy #[id number], 141, cm, 01/11/23 10:30:00 [...] 1 03-01-2024 Chronic Congestive heart failure; nonhypertensive (20 sources) Chronic diastolic (congestive) heart failure; Translations: [Congestive heart failure] Onset: 3 03-01-2024 Chronic Coronary atherosclerosis and other heart disease (20 sources) Atherosclerotic heart disease of [place] coronary artery without angina pectoris; Translations: [Coronary atherosclerosis] Onset: 2 09-06-2023 Chronic Deficiency and other anemia (20 sources) Iron deficiency anemia due to blood loss; Translations: [Iron deficiency anemia secondary to blood loss (chronic)] Onset: 4 03-12-2024 Chronic Deficiency and other anemia (1 source) Iron deficiency anemia secondary to blood loss (chronic); Translations: [Iron deficiency anemia secondary to blood loss (chronic)] Onset: 4 Chronic Deficiency and other anemia (2 sources) Iron deficiency anemia; Translations: [Iron deficiency anemia, unspecified] Onset: 4 Episodic Deficiency and other anemia (20 sources) 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; Translations: [Other specified anemias] Onset: 4 07-05-2024 Episodic Deficiency and other anemia (1 source) Iron deficiency anemia, unspecified; Translations: [Iron deficiency anemia, unspecified] Onset: 4 Episodic Disorders of lipid metabolism (1 source) Hyperlipidemia, unspecified; Translations: [HYPERLIPIDEMIA UNSPECIFIED] Onset: 3 Chronic Diverticulosis and diverticulitis (19 sources) Diverticulosis of sigmoid colon; Translations: [Diverticulosis of large intestine without perforation or abscess without bleeding] Onset: 4 07-05-2024 Chronic Esophageal disorders (8 sources) Gastroesophageal reflux disease without esophagitis; Translations: [Gastro-esophageal reflux disease without esophagitis] Onset: 4 Chronic Essential hypertension (20 sources) Essential hypertension; Translations: [Essential (primary) hypertension] [...] DISEASE W/HEART FAIL] Onset: 3 Chronic Lymphadenitis (19 sources) Axillary lymphadenopathy; Translations: [Localized enlarged lymph nodes] Onset: 4 07-05-2024 Episodic Mood disorders (1 source) Depressive disorder 01-11-2023 Chronic Comment on above: Per pt she had a armando ght of depresseion after her but she denies any chronic depression. Nausea and vomiting (6 sources) Nausea; Translations: [Nausea] 07-24-2024 Episodic Nonspecific chest pain (1 source) Chest pain, unspecified; Translations: [CHEST PAIN UNSPECIFIED] Onset: 3 Episodic Nutritional deficiencies (20 sources) Vitamin D deficiency; Translations: [Vitamin D deficiency, unspecified] Onset: 3 01-10-2023 Chronic Osteoarthritis (20 sources) Arthritis of acromioclavicular joint; Translations: [Primary osteoarthritis, right shoulder] Onset: 3 09-06-2023 Chronic Other aftercare (4 sources) Encounter for therapeutic drug level monitoring; Translations: [ENC THERAPEUTC DRUG LEVL MONITORING] Onset: 3 Episodic Other aftercare (1 source) custodial (current) use of anticoagulants; Translations: [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 USE 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] Onset: 3 Episodic Other aftercare (1 source) Other prison (current) drug therapy; Translations: [OTH SAWING AND ASSEMBLY SUPERVISOR CURRENT DRUG THERAPY] Onset: 3 Episodic Other and ill-defined heart disease (20 sources) Diastolic dysfunction; Translations: [Other ill-defined heart diseases] Onset: 4 02-27-2024 Chronic Other connective tissue disease (2 sources) History of reverse prosthetic total arthroplasty of left shoulder; Translations: [Presence of left artificial shoulder joint] 05-09-2024 Chronic Other connective tissue disease (4 sources) Radicular pain; Translations: [Neuralgia and neuritis, unspecified] 07-05-2024 Episodic Other gastrointestinal disorders (19 sources) Irritable bowel syndrome; Translations: [Irritable bowel [...] NEC] Onset: 3 Chronic Other liver diseases (20 sources) Steatosis of liver; Translations: [Fatty (change of) liver, not elsewhere classified] Onset: 3 09-06-2023 Chronic Comment on above: non alcoholic Other nervous system disorders (2 sources) Chronic pain; Translations: [Other chronic pain] Chronic Other nutritional; endocrine; and metabolic disorders [...] Chronic Other nutritional; endocrine; and metabolic disorders (20 sources) Hypocalcemia; Translations: [Hypocalcemia] Onset: 3 09-06-2023 Chronic Other nutritional; endocrine; and metabolic disorders (20 sources) Obesity; Translations: [Obesity, unspecified] Onset: 3 09-06-2023 Chronic Other nutritional; endocrine; and metabolic disorders (1 source) Body mass index 40+ - severely obese 03-02-2024 Chronic Other nutritional; endocrine; and metabolic disorders (1 source) Obese class III 03-02-2024 Chronic Other screening for suspected conditions (not mental disorders or infectious disease) (20 sources) Ultrasound scan abnormal; Translations: [Abnormal findings on diagnostic imaging of other specified body structures] Onset: 4 07-05-2024 Chronic Other screening for suspected conditions (not mental disorders or infectious disease) (10 sources) Abnormal coagulation profile; Translations: [Encounter for screening mammogram for malignant neoplasm of breast] Onset: 2 Episodic Other upper respiratory infections (7 sources) Acute sinusitis, unspecified; Translations: [Acute sinusitis] Onset: 3 07-05-2024 Episodic Pulmonary heart disease (16 sources) Pulmonary hypertension; Translations: [Pulmonary hypertension, unspecified] Onset: 4 07-24-2024 Chronic Residual codes; unclassified (5 sources) Obstructive sleep apnea (adult) (pediatric); Translations: [OBSTRUCTIVE SLEEP APNEA] Onset: 2 Chronic Residual codes; unclassified (14 sources) Obstructive sleep apnea syndrome; Translations: [Obstructive [...] [COUGH, UNSPECIFIED] Onset: 2 Unclassified (2 sources) PACEMAKER Onset: 4 Unclassified (1 source) Encounter for checking and testing of cardiac pacemaker pulse generator [battery]; Translations: [Encounter for checking and testing of cardiac pacemaker pulse generator [battery]] Onset: 3 Viral infection (1 source) Herpes zoster 01-10-2023 Episodic Comment on above: 05/2019 Past or Other Problems Problem Classification Problem Date Documented Da te Episodic/Chronic Abdominal hernia (20 sources) Diaphragmatic hernia; Translations: [Diaphragmatic hernia without obstruction or gangrene] Onset: 10-17-2023 Episodic Fracture of lower limb (20 sources) Closed fracture of fifth metatarsal bone; Translations: [Displaced fracture of fifth metatarsal bone, left foot, initial encounter for closed fracture] Onset: 11-07-2023 11-07-2023 Episodic Mood disorders (20 sources) Mood disorders Onset: 09-06-2023 09-06-2023 Other circulatory disease (20 sources) Vascular insufficiency; Translations: [Venous insufficiency (chronic) (peripheral)] Onset: 03-01-2023 01-10-2023 Episodic Other connective tissue disease (2 sources) Pain of left hand; Translations: [Pain in left hand] Episodic Other connective tissue disease (2 sources) Pain in left foot; Translations: [Pain in left foot] Episodic Other connective tissue disease (20 sources) Impingement syndrome of right shoulder region; Translations: [Impingement syndrome of right shoulder] Onset: 11-07-2023 11-07-2023 Episodic Other connective tissue disease (20 sources) Disorder of bursa of shoulder region; [...] Onset: 02-25-2022 Episodic Other non-traumatic joint disorders (20 sources) Shoulder pain; Translations: [Pain in left shoulder] Onset: 10-17-2023 10-17-2023 Episodic Other non-traumatic joint disorders (2 sources) Knee pain; Translations: [Pain in left knee] Episodic Other non-traumatic joint disorders (20 sources) Pain in left knee; Translations: [Pain in joint, lower leg] Onset: 09-06-2023 09-06-2023 Episodic Other non-traumatic joint disorders (6 sources) Pain in left shoulder; Translations: [Pain in joint, shoulder region] Onset: 05-02-2024 05-22-2024 Episodic Other non-traumatic joint disorders (1 source) Chronic pain of left upper limb; Translations: [Pain in left shoulder] 05-16-2024 Episodic Residual codes; unclassified (20 sources) Edema; Translations: [Edema, unspecified] Onset: 01-12-2012 09-06-2023 Episodic Spondylosis; intervertebral disc disorders; other back problems (20 sources) Cervical radiculopathy; Translations: [Radiculopathy, cervical region] Onset: 03-01-2023 09-06-2023 Episodic Superficial injury; contusion (20 sources) Contusion of shoulder region; Translations: [Contusion of left shoulder, initial encounter] Onset: 11-07-2023 11-07-2023 Episodic Unclassified (1 source) LOW BACK PAIN, UNSPECIFIED; Translations: [LOW BACK PAIN, UNSPECIFIED] Onset: 01-28-2023 Unclassified (1 source) COUGH, UNSPECIFIED; Translations: [COUGH, UNSPECIFIED] Onset: 03-30-2022 Results Test Name Value Interpretation Reference Range Facility C-Reactive Proteinon 024 C-Reactive Protein 1.1 mg/dL High 0.0-0.5 [facility] Comment on above: Result Comment: PERF ORMED BY: [place] [address] PATHOLOGIST WIRE REPAIRER KATHLEEN RAMOS M.D. Performed By: #### C RP #### [address] CBC W Auto Differential pane l (Bld)on 08-24-2024 Basophils (Bld) [#/Vol] 0.1 10*3/uL 0.0 - 0.2 10*3/uL [facility] Basophils/100 WBC Manual cnt (Syn fld) 0.9 % . [facility] Eosinophils (Bld) [#/Vol] 0.2 10*3/uL 0.0 - 0.45 10*3/uL [facility] Eosinophils/100 WBC Manual cnt (Syn fld) 2.6 % . [facility] Erythrocyte distribution width (RBC) [Ratio] 19.3 % High 11.9 - 15.3 % [facility] Hematocrit (Bld) [Volume fraction] 28.2 % Low 34.0 - 46.4 % [facility] Hemoglobin (Bld) [Mass/Vol] 8.6 g/dL Low 11.8 - 15.4 g/dL [facility] Interpretation and review of laboratory results Abnormal [facility] Lymphocytes (Bld) [#/Vol] 2.1 10*3/uL 1.00 - 4.8 10*3/uL [facility] Lymphocytes/100 WBC Manual cnt (Syn fld) 23.5 % . [facility] MCH (RBC) [Entitic mass] 21.8 pg Low 24.7 - 34.3 pg [facility] MCHC (RBC) [Mass/Vol] 30.4 g/dL Low 32.0 - 35.0 g/dL [facility] MCV (RBC) [Entitic vol] 71.9 fL Low 80 - 100 fL [facility] Monocytes (Bld) [#/Vol] 0.6 10*3/uL 0.0 - 0.8 10*3/uL [facility] Monocytes+Macrophages/ 100 WBC Manual cnt (Syn fld) 6.8 % . [facility] Neutrophils (Bld) [#/Vol] 5.9 10*3/uL 1.8 - 7.7 10*3/uL [facility] Neutrophils/100 WBC Manual cnt (Syn fld) 66.2 % . [facility] NRBC 0 /100{WBC} 0 - 0.5 /100{WBC} [facility] Platelet mean volume (Bld) [Entitic vol] 6.9 fL 6.3 - 10.7 fL [facility] Platelets (Bld) [#/Vol] 345 10*3/uL 150 - 450 10*3/uL [facility] RBC LM.HPF (Urine sed) [#/Area] 3.93 10*6/uL 3.60 - 5.00 10*6/uL [facility] WBC (Bld) [#/Vol] 8.9 10*3/uL 3.8 - 11.6 10*3/uL [facility] WBC LM.HPF (Urine sed) [#/Area] 8.9 10*3/uL 3.8 - 11.6 10*3/uL [facility] Complete Blood Count Auto Di ffon 08-24-2024 Basophils (Bld) [#/Vol] 0.1 10*3/uL Normal 0.0-0.2 [facility] Comment on above: Result Comment: PERF ORMED BY: [facility] [address] [address] PATHOLOGIST WIRE REPAIRER KATHLEEN RAMOS M.D. Performed By: #### C BC, FE and TIBC, ARISTIDES, [id number] #### [place] [address] Basophils/100 WBC (Bld) 0.9 % Normal . [facility] Comment on above: Performed By: #### C BC, FE and TIBC, ARISTIDES, [id number] #### [address] Eosinophils (Bld) [#/Vol] 0.2 10*3/uL Normal 0.0-0.45 [facility] Comment on above: Performed By: #### C BC, FE and TIBC, ARISTIDES, [id number] #### [address] Eosinophils/100 WBC (Bld) 2.6 % Normal . [facility] Comment on above: Performed By: #### C BC, FE and TIBC, ARISTIDES, [id number] #### [address] Erythrocyte distribution width (RBC) [Ratio] 19.3 % High 11.9-15.3 [facility] Comment on above: Performed By: #### C BC, FE and TIBC, ARISTIDES, [id number] #### [address] Hematocrit (Bld) [Volume fraction] 28.2 % Low 34.0-46.4 [facility] Comment on above: Performed By: #### C BC, FE and TIBC, ARISTIDES, [id number] #### [address] Hemoglobin (Bld) [Mass/Vol] 8.6 g/dL Low 11.8-15.4 [facility] Comment on above: Performed By: #### C BC, FE and TIBC, ARISTIDES, [id number] #### [address] Lymphocytes (Bld) [#/Vol] 2.1 10*3/uL Normal 1.00-4.8 [facility] Comment on above: Performed By: #### C BC, FE and TIBC, ARISTIDES, [id number] #### [address] Lymphocytes/100 WBC (Bld) 23.5 % Normal . [facility] Comment on above: Performed By: #### C BC, FE and TIBC, ARISTIDES, [id number] #### [address] MCH (RBC) [Entitic mass] 21.8 pg Low 24.7-34.3 [facility] Comment on above: Performed By: #### C BC, FE and TIBC, ARISTIDES, [id number] #### [address] MCV (RBC) [Entitic vol] 71.9 fL Low 80-100 [facility] Comment on above: Performed By: #### C BC, FE and TIBC, ARISTIDES, [id number] #### [address] Mean Corpuscular HGB Conc 30.4 g/dL Low 32.0-35.0 [facility] Comment on above: Performed By: #### C BC, FE and TIBC, ARISTIDES, [id number] #### [address] Monocytes (Bld) [#/Vol] 0.6 10*3/uL Normal 0.0-0.8 [facility] Comment on above: Performed By: #### C BC, FE and TIBC, ARISTIDES, [id number] #### [address] Monocytes/100 WBC (Bld) 6.8 % Normal . [facility] Comment on above: Performed By: #### C BC, FE and TIBC, ARISTIDES, [id number] #### [address] Neutrophils (Bld) [#/Vol] 5.9 10*3/uL Normal 1.8-7.7 [facility] Comment on above: Performed By: #### C BC, FE and TIBC, ARISTIDES, [id number] #### [address] Neutrophils/100 WBC (Bld) 66.2 % Normal . [facility] Comment on above: Performed By: #### C BC, FE and TIBC, ARISTIDES, [id number] #### [address] NRBC% 0.0 /100{WBC} Normal 0-0.5 [facility] Comment on above: Performed By: #### C BC, FE and TIBC, ARISTIDES, [id number] #### [address] Platelet mean volume (Bld) [Entitic vol] 6.9 fL Normal 6.3-10.7 [facility] Comment on above: Performed By: #### C BC, FE and TIBC, ARISTIDES, [id number] #### [address] Platelets (Bld) [#/Vol] 345 10*3/uL Normal 150-450 [facility] Comment on above: Performed By: #### C BC, FE and TIBC, ARISTIDES, [id number] #### [address] RBC (Bld) [#/Vol] 3.93 10*6/uL Normal 3.60-5.00 [facility] Comment on above: Performed By: #### C BC, FE and TIBC, ARISTIDES, [id number] #### [address] WBC (Bld) [#/Vol] 8.9 10*3/uL Normal 3.8-11.6 [facility] Comment on above: Performed By: #### C BC, FE and TIBC, ARISTIDES, [id number] #### [address] Erythrocyte Sedimentation Ra aren 08-24-2024 ESR (Bld) [Velocity] 103 mm/h High 0-29 [facility] Comment on above: Result Comment: PERF ORMED BY: [place] [address] PATHOLOGIST WIRE REPAIRER KATHLEEN RAMOS M.D. Performed By: #### E SR #### [address] Ferritinon 08-24-2024 Ferritin [Mass/Vol] 8.6 ng/mL Low 11.0-306.8 [facility] Comment on above: Performed By: #### C BC, FE and TIBC, ARISTIDES, [id number] #### [address] Iron and TIBC Profileon 08-12 % Iron Saturation 3.2 % Low 20-50 [facility] Comment on above: Performed By: #### C BC, FE and TIBC, ARISTIDES, [id number] #### [address] Iron [Mass/Vol] 14 ug/dL Low 50-212 [facility] Comment on above: Performed By: #### C BC, FE and TIBC, ARISTIDES, [id number] #### [address] Total Iron Binding Capacity 437 ug/dL Normal 255-450 [facility] Comment on above: Performed By: #### C BC, FE and TIBC, ARISTIDES, [id number] #### [address] Transferrin [Mass/Vol] 312 mg/dL Normal 203-362 Th [facility] Comment on above: Performed By: #### C BC, FE and TIBC, ARISTIDES, [id number] #### [address] Vit. B12/Folate Profileon Cobalamin (Vitamin B12) [Mass/Vol] 417 pg/mL Normal 180-914 [facility] Comment on above: Performed By: #### C BC, FE and TIBC, ARISTIDES, [id number] #### [facility] [address] [id number] [facility] Folate 28.0 ng/mL Normal >5.9 [facility] Comment on above: Result Comment: Nayely te reference range: >5.9 ng/ml The WHO technical consultation on folate and vitamin b12 deficiencies has determined that folate concentrations less than 4 ng/ml are considered deficient. PERFORMED BY: [place] [address] PATHOLOGIST WIRE REPAIRER KATHLEEN RAMOS M.D. Performed By: #### C BC, FE and TIBC, ARISTIDES, [id number] #### [facility] [address] TRANSFERRINon 07-25-2024 Transferrin [Mass/Vol] 284 mg/dL 192 - 364 mg/dL [facility] Comment on above: Performed at: [address] [id number] Sanitation Director: Baudilio Givens PhD, Phone: [phone] [facility] ALL CBC WITH AUTO DIFFon BASOPHILS ABSOLUTE AUTO 0.1 [facility] Basophils/100 WBC (Bld) 0.9 % 0.2 - 2.0 % [facility] Eosinophils/100 WBC (Bld) 0.9 % 0.9 - 7.0 % [facility] Erythrocyte distribution width (RBC) [Ratio] 17.7 % High 11.0 - 15.0 % [facility] Hematocrit (Bld) [Volume fraction] 29.9 % Low 36.0 - 48.0 % [facility] Hemoglobin (Bld) [Mass/Vol] 8.7 g/dL Low 12.0 - 16.0 g/dL [facility] IMMATURE GRANULOCYTES ABS AUTO 0.03 [facility] Immature granulocytes/100 WBC (Bld) 0.3 % 0.0 - 0.5 % [facility] Interpretation and review of laboratory results Abnormal [facility] LYMPHOCYTES ABSOLUTE AUTO 1.4 [facility] Lymphocytes/100 WBC (Bld) 14.1 % Low 20.5 - 60.0 % [facility] MCH (RBC) [Entitic mass] 22.3 pg Low 26.7 - 34.0 pg [facility] MCHC (RBC) [Mass/Vol] 29.1 g/dL Low 29.9 - 35.2 g/dL [facility] MCV (RBC) [Entitic vol] 76.7 fL Low 81.0 - 99.0 fL [facility] MONOCYTES ABSOLUTE AUTO 0.7 [facility] Monocytes/100 WBC (Bld) 6.6 % 1.7 - 12.0 % [facility] NEUTROPHILS ABSOLUTE AUTO 7.7 High [facility] Neutrophils/100 WBC (Bld) 77.2 % High 43.0 - 75.0 % [facility] Platelet mean volume (Bld) [Entitic vol] 9.3 fL Low 9.5 - 13.5 fL [facility] TBH EO # 0.1 [facility] TB PLT 328 [facility] RBC 3.9 Low [facility] WBC 10 [facility] 2023 Interpretation and review of laboratory results Abnormal [facility] IRON 17 ug/dL Low 50.0 - 170.0 ug/dL [facility] PERCENT IRON SATURATION 4.5 % [facility] TOTAL IRON BINDING CAPACITY 381 ug/dL 250.0 - 450.0 ug/dL [facility] 07-18-2024 Follow-up visit [id number] Breann [place] 1945 F Date Provider Department Center 07/18/2024 [id number] ALTMAN Family History Adopted: Yes Family history unknown: Yes Family Status - Relation Status Age at Mother Father Level of Service:76712 [place] OFFICE/OUTPATIENT ESTABLISHED MOD MDM 30 MIN Reason for Visit and Comments: Atrial Fibrillation [80] PACEMAKER [Other] Coronary Artery Disease [187] Hypertension [466095] Sinus node dysfunction [Other] - HAS BOSTON PACER Obesity [[id number]] Edema [[id number]] Normal [facility] CNOVon 05-22-2024 CNOV Office Visit (LOORRM) BREANN STARKS ([id number]) 1945 F Date Time Provider Department 05/22/24 [...] She was recommended for second opinion at [facility]. She also had a CRP and [...] I ordered (more content not included)... Normal [facility] XR SHLDR 4V AP/HECTOR/LAT/OUTLE T LTon [...] other significant abnormality. IMPRESSION: EXPECTED POSTOPERATIVE APPEARANCE Willow Worker: STEVE Transcribe Date/Time: May 22 2024 2:42P Dictated by : VILMA ABREU MD This examination was interpreted and the report reviewed and electronically signed by: VILMA ABREU MD on May 22 2024 2:42PM EST [id number] Normal [facility] XR Shoulder - left 4 Viewson 05-22-2024 IMPRESSION: EXPECTED POSTOPERATIVE APPEARANCE Willow Worker: PSCB Transcribe Date/Time: May 22 2024 2:42P [...] other significant abnormality. DIVISION OF RADIOLOGY Provider, [facility] [place] - 05/22/2024 * * *Final Report* * [...] significant abnormality. IMPRESSION IMPRESSION: EXPECTED POSTOPERATIVE APPEARANCE Willow Worker: STEVE Transcribe Date/Time: May 22 2024 2:42P Dictated by : VILMA ABREU MD This examination was interpreted and the report reviewed and electronically signed by: VILMA ABREU MD on May 22 2024 2:42PM [facility] Radiology Study observation (narrative) [facility] XR Shoulder - left 4 ViewsOr dered By: [facility] Provider on 05-22-2024 [facility] ALL CBC WITH AUTO DIFFon BASOPHILS ABSOLUTE AUTO 0.0 [facility] Basophils/100 WBC (Bld) 0.6 % 0.2 - 2.0 % [facility] Eosinophils/100 WBC (Bld) 1.0 % 0.9 - 7.0 % [facility] Erythrocyte distribution width (RBC) [Ratio] 19.6 % High 11.0 - 15.0 % [facility] Hematocrit (Bld) [Volume fraction] 32.9 % Low 36.0 - 48.0 % [facility] Hemoglobin (Bld) [Mass/Vol] 9.7 g/dL Low 12.0 - 16.0 g/dL [facility] IMMATURE GRANULOCYTES ABS AUTO 0.02 [facility] Immature granulocytes/100 WBC (Bld) 0.3 % 0.0 - 0.5 % [facility] Interpretation and review of laboratory results Abnormal [facility] LYMPHOCYTES ABSOLUTE AUTO 1.4 [facility] Lymphocytes/100 WBC (Bld) 20.4 % Low 20.5 - 60.0 % [facility] MCH (RBC) [Entitic mass] 22.8 pg Low 26.7 - 34.0 pg [facility] MCHC (RBC) [Mass/Vol] 29.5 g/dL Low 29.9 - 35.2 g/dL [facility] MCV (RBC) [Entitic vol] 77.4 fL Low 81.0 - 99.0 fL [facility] MONOCYTES ABSOLUTE AUTO 0.7 [facility] Monocytes/100 WBC (Bld) 9.8 % 1.7 - 12.0 % [facility] NEUTROPHILS ABSOLUTE AUTO 4.7 [facility] Neutrophils/100 WBC (Bld) 67.9 % 43.0 - 75.0 % [facility] Platelet mean volume (Bld) [Entitic vol] 8.5 fL Low 9.5 - 13.5 fL [facility] TBH EO # 0.1 [facility] TBH PLT 278 [facility] TBH RBC 4.25 [facility] TBH WBC 7.0 [facility] CLINISYNC [facility] NM bone 3 phaseon 05-02-2024 DC bone 3 [place] [address] Nuclear Medicine Report Signed Patient: Breann Starks MR#: [id number] 171 : 1945 Acct:[id number] Age/Sex: 78 / F ADM Date: 05/02/24 Loc: DC Room: Type: [facility] Attending Dr: Pedro Pablo Cruz PA-C Copies [...] Etienne Rhodes M.D.05/02/2024 2:44 PM Dictation Location: [place] [address] Transcribed By: [facility] 05/02/24 1444 Dictated By: Etienne Rhodes DO 05/02/24 1440 Signed By: 05/02/24 1444 Normal [facility] Lab Reportson 03-07-2024 Lab Reports [id number] #1.00TIFF Normal [facility] 36on 03-06-2024 36 Echo from 03/05/2024 [...] to her pharmacy. BMP order faxed to [facility]. Breann verbalized understanding. Normal [facility] Consent for Procedure/Surger yon 03-05-2024 Consent for Procedure/Surgery [id number] #1.00TIFF Destiny Medrano [facility] Ambulatory Visit Summaryon 0 03-02-2024 Ambulatory Visit [...] you for choosing us for your care. [facility] ED Note-Physicianon 03-02-20 24 ED Note-Physician [id number]# 1.00TIFF [facility] Insurance Correspondenceon 0 03-02-2024 Insurance Correspondence [id number] 7#1.00TIFF [facility] Lab Reportson 03-02-2024 Lab Reports [id number] #1.00TIFF [facility] 36on 01-25-2024 36 Patient called stating ever since her device was adjusted last month she's had this weird feeling in her throat. I called Sony Asif from [employer] and he told me this feeling she's having should not be from her device. Patient informed. I suggested she see PCP for this. She verbalized understanding. Normal [facility] Office Visiton 01-17-2024 Follow-up visit [id number] Breann Starks 1945 F Date Provider Department Center 01/17/2024 NICANOR REGAN Family History Adopted: Yes Family history unknown: Yes Family Status - Relation Status Age at Mother Father Level of Service:04535 [place] OFFICE/OUTPATIENT ESTABLISHED MOD MDM 30 MIN Reason for Visit and Comments: Atrial Fibrillation [80] Normal [facility] XR lumbar spine 6V w bending on 11-16-2023 XR lumbar spine 6V w bending [place] [address] XRay Report Signed Patient: Breann Starks MR#: [id number] 171 : 1945 Acct:[id number] Age/Sex: 77 / F ADM Date: 11/16/23 Loc: XD Room: Type: [facility] Attending Dr: Kayley DESIR Copies to: THANG [...] Benton Jr., D.OMeena11/16/2023 4:37 PM Dictation Location: [place] [address] Transcribed By: [facility] 11/16/23 1637 Dictated By: Francisco J Benton Jr, DO 11/16/23 1636 Signed By: 11/16/23 1637 Normal [facility] MR lumbar spine wo [place] MR lumbar spine wo con [facility] Main [place] [address] [place] [address] XRay Report Signed Patient: Breann Starks MR#: [id number] 171 : 1945 Acct:[id number] Age/Sex: 77 / F ADM Date: 10/11/23 Loc: MR Room: Type: [facility] Attending Dr: Claire DESIR Copies to: THANG Porter Ordering Provider: THANG Porter Date of Service: 10/11/23 MR/MR lumbar spine wo con: LUMBAR RADICULPATHY ([id number]) XR/XR pre/post mri xray: LUMBAR RADICULPATHY CLINICAL [...] M.D.10/11/2023 4:10 PM Dictation Location: [place] [address] Transcribed By: [facility] 10/11/23 1610 Dictated By: Eleanor Reece MD 10/11/23 1133 Signed By: 10/11/23 1610 Normal [facility] XR LSPINE W_OBLS AND [...] by: PAULA BROWN Date: 2023-01-31 11:34 Normal [facility] LIPID PROFILEon 12-16-2022 CHOL-HDL RATIO NORM SEE BELOW Normal [facility] Comment on above: Result Comment: 3.3 - 4.4 LOW RISK 4.4 - 7.1 AVERAGE RISK 7.1 - 11.0 MODERATE RISK >11.0 HIGH RISK Performed By: #### L IPID ####[facility] [address] [place] [id number]. Erasmo Smith Cholesterol [Mass/Vol] 105 mg/dL Normal <=[address] [facility] Comment on above: Performed By: #### L IPID ####[facility] [address] [place] [address] [id number]. Erasmo Smith Cholesterol in HDL [Mass/Vol] 48 mg/dL Normal 40-60 [facility] Comment on above: Performed By: #### L IPID ####[facility] [address] [place] [address] [id number]. Erasmo Smith Cholesterol in LDL [Mass/Vol] 48.2 mg/dL Normal [facility] Comment on above: Performed By: #### L IPID ####[facility] [address] [place] [address]Dr. Erasmo Smith Cholesterol.total/Chol esterol in HDL [Mass ratio] 2.2 {ratio} Normal [facility] Comment on above: Performed By: #### L IPID ####[facility] [address] [place] [id number]. Erasmo Smith HDL NORMAL > or = 60 mg/dl - LOW CARDIOVASCULAR RISK <40 mg/dl - HIGH CARDIOVASCULAR RISK Normal [facility] Comment on above: Performed By: #### L IPID ####[facility] [address] [place] [address]Dr. Erasmo Smith LDL CALC NORMAL SEE BELOW Normal [facility] Comment on above: Result Comment: <100 mg/dl OPTIMAL 100 - 129 mg/dl NEAR OR ABOVE OPTIMAL 130 - 159 mg/dl BORDERLINE HIGH 160 - 189 mg/dl HIGH >190 mg/dl VERY HIGH Performed By: #### L IPID ####[facility] [address] [place] [id number]. Erasmo Smith Triglyceride [Mass/Vol] 44 mg/dL Normal <=150 [facility] Comment on above: Performed By: #### L IPID ####[facility] [address] [place] [id number]. Erasmo Smith VLDL CALC 8.8 mg/dL Normal [facility] Comment on above: Performed By: #### L IPID ####[facility] [address] [place] [address]Dr. Erasmo Smith CULTURE BLOODon 12-04-2022 Microscopic examination [...] Trimethoprim/Sulfame thoxazole <=20 S F Normal [facility] Comment on above: Performed By: #### B LDCX1 ####[facility] [address] [place], [place] [address]Dr. Erasmo Smith BNPon 12-03-2022 Natriuretic peptide B (Bld) [Mass/Vol] 413.0 pg/mL Normal <=1,800.0 [facility] Comment on above: Performed By: #### B SUPERINTENDENT LOCAL #### [facility] [address] [place] [address] Dr. Erasmo Smith CBC AUTO DIFFon 12-03-2022 BASO # 0.0 103/ul Normal 0.0-0.1 [facility] Comment on above: Performed By: #### C BC ####[facility] [address] [place] [address]DrMeena Smith Basophils/100 WBC (Bld) 0.2 % Normal 0.2-2.0 [facility] Comment on above: Performed By: #### C BC ####[facility] [address] [place], [place] [address]DrMeena Smith EO # 0.4 103/ul Normal 0.0-0.7 [facility] Comment on above: Performed By: #### C BC ####[facility] [address] [place] [address]Dr. Erasmo Smith Eosinophils/100 WBC (Bld) 2.1 % Normal 0.9-7.0 [facility] Comment on above: Performed By: #### C BC ####[facility] [address] [place], [place] [address]Dr. Erasmo Smith Erythrocyte distribution width (RBC) [Ratio] 17.2 % Critically high 11.0-15.0 [facility] Comment on above: Performed By: #### C BC ####[facility] [address] [place], [place] [address]Dr. Erasmo Smith Hematocrit (Bld) [Volume fraction] 29.2 % Critically low 36.0-48.0 [facility] Comment on above: Performed By: #### C BC ####[facility] [address] [place], [place] [address]Dr. Erasmo Smith Hemoglobin (Bld) [Mass/Vol] 9.5 g/dL Critically low 12.0-16.0 [facility] Comment on above: Performed By: #### C BC ####[facility] [address] [place], [place] [address]Dr. Erasmo Smith IG # 0.13 10e3/ul Critically high 0.00-0.03 [facility] Comment on above: Performed By: #### C BC ####[facility] [address] [place], [place] [address]Dr. Erasmo Smith IG % 0.8 % Critically high 0.0-0.5 [facility] Comment on above: Performed By: #### C BC ####[facility] [address] [place], [place] [address]Dr. Erasmo Smith LYMPH # 1.8 103/ul Normal 1.2-3.8 [facility] Comment on above: Performed By: #### C BC ####[facility] [address] [place], [place] [address]Dr. Erasmo Smith Lymphocytes/100 WBC (Bld) 10.3 % Critically low 20.5-60.0 [facility] Comment on above: Performed By: #### C BC ####[facility] [address] [place] [id number]. Erasmo Smith MANUAL DIFF REQ NO Normal [facility] Comment on above: Performed By: #### C BC ####[facility] [address] [place] [id number]. Erasmo Smith MCH (RBC) [Entitic mass] 25.7 pg Critically low 26.7-34.0 [facility] Comment on above: Performed By: #### C BC ####[facility] [address] [place] [address]Dr. Erasmo Smith MCHC (RBC) [Mass/Vol] 32.5 g/dL Normal 29.9-35.2 [facility] Comment on above: Performed By: #### C BC ####[facility] [address] [place] [address]Dr. Heavenean Smith MCV (RBC) [Entitic vol] 79.1 fL Critically low 81.0-99.0 [facility] Comment on above: Performed By: #### C BC ####[facility] [address] [place] [address]Dr. Erasmo Luis MONO # 1.5 103/ul Critically high 0.3-0.8 [facility] Comment on above: Performed By: #### C BC ####[facility] [address] [place], [place] [address]Dr. Erasmo Smith Monocytes/100 WBC (Bld) 8.7 % Normal 1.7-12.0 [facility] Comment on above: Performed By: #### C BC ####[facility] [address] [place] [address]Dr. Heavenean Luis NEUT # 13.4 103/ul Critically high 1.4-6.5 [facility] Comment on above: Performed By: #### C BC ####[facility] [address] [place], [place] [address]Dr. Erasmo Smith Neutrophils/100 WBC (Bld) 77.9 % Critically high 43.0-75.0 [facility] Comment on above: Performed By: #### C BC ####[facility] [address] [place], [place] [address]Dm. Erasmo Smith Platelet mean volume (Bld) [Entitic vol] 9.3 fL Critically low 9.5-13.5 [facility] Comment on above: Performed By: #### C BC ####[facility] [address] [place], [place] [address]Pq. Erasmo Smith PLT 205 103/ul Normal 150-450 [facility] Comment on above: Performed By: #### C BC ####[facility] [address] [place], [place] [address]Ui. Erasmo Smith RBC 3.69 106/ul Critically low 4.20-5.40 [facility] Comment on above: Performed By: #### C BC ####[facility] [address] [place] [id number]. Erasmo Smith WBC 17.2 103/ul Critically high 4.0-11.0 [facility] Comment on above: Performed By: #### C BC ####[facility] [address] [place] [id number] Smith MAGNESIUMon 12-03-2022 Magnesium [Mass/Vol] 1.9 mg/dL Normal 1.8-2.4 [facility] Comment on above: Performed By: #### B SUPERINTENDENT LOCAL #### [facility] [address] [place] [address] [address] Erasmo Smith PROF 14(COMP METB)on 023 Albumin [Mass/Vol] 2.6 g/dL Critically low 3.4-5.0 [facility] Comment on above: Performed By: #### B SUPERINTENDENT LOCAL #### [facility] [address] [place] [address] [address] Erasmo Smith Albumin/Globulin [Mass ratio] 0.6 {ratio} Normal [facility] Comment on above: Performed By: #### B SUPERINTENDENT LOCAL #### [facility] [address] [place] [address] [address] Erasmo Smith ALP [Catalytic activity/Vol] 123 U/L Critically high 46-116 [facility] Comment on above: Performed By: #### B SUPERINTENDENT LOCAL #### [facility] [address] [place] [address] [address] Erasmo Smith ALT [Catalytic activity/Vol] 28 U/L Normal 14-59 [facility] Comment on above: Performed By: #### B SUPERINTENDENT LOCAL #### [facility] [address] [place] [address] [address] Erasmo Smith Anion gap [Moles/Vol] 9.4 mmol/L Normal [facility] Comment on above: Performed By: #### B SUPERINTENDENT LOCAL #### [facility] [address] [place] [address] [address] Erasmo Smith AST [Catalytic activity/Vol] 21 U/L Normal 15-37 [facility] Comment on above: Performed By: #### B SUPERINTENDENT LOCAL #### [facility] [address] [place] [address] Dr. Erasmo Smith Bilirubin [Mass/Vol] 0.3 mg/dL Normal 0.2-1.0 [facility] Comment on above: Performed By: #### B SUPERINTENDENT LOCAL #### [facility] [address] [place] [address] Dr. Erasmo Smith Calcium [Mass/Vol] 8.3 mg/dL Critically low 8.5-10.[address] [facility] Comment on above: Performed By: #### B SUPERINTENDENT LOCAL #### [facility] [address] [place] [address] Dr. Erasmo Smith Chloride [Moles/Vol] 105 mmol/L Normal 98-107 [facility] Comment on above: Performed By: #### B SUPERINTENDENT LOCAL #### [facility] [address] [place] [address] Dr. Erasmo Smith CO2 [Moles/Vol] 27.1 mmol/L Normal 21.0-32.0 [facility] Comment on above: Performed By: #### B SUPERINTENDENT LOCAL #### [facility] [address] [place] [address] Dr. Erasmo Smith Creatinine [Mass/Vol] 0.55 mg/dL Normal 0.55-1.02 [facility] Comment on above: Performed By: #### B SUPERINTENDENT LOCAL #### [facility] [address] [place] [address] Dr. Erasmo Smith EGFR-AF LIBYAN >60 Normal >=60 [facility] Comment on above: Performed By: #### B SUPERINTENDENT LOCAL #### [facility] [address] [place] [address] Dr. Erasmo Smith EGFR-NON AF LIBYAN >60 Normal >=60 [facility] Comment on above: Performed By: #### B SUPERINTENDENT LOCAL #### [facility] [address] [place] [address] [address] Erasmo Smith Globulin (S) [Mass/Vol] 4.0 g/dL Normal [facility] Comment on above: Performed By: #### B SUPERINTENDENT LOCAL #### [facility] [address] [place] [address] Dr. Erasmo Smith Glucose [Mass/Vol] 132 mg/dL Critically high 74-106 [facility] Comment on above: Performed By: #### B SUPERINTENDENT LOCAL #### [facility] [address] [place] [address] Dr. Erasmo Smith Potassium [Moles/Vol] 3.5 mmol/L Normal 3.5-5.1 [facility] Comment on above: Performed By: #### B SUPERINTENDENT LOCAL #### [facility] [address] [place] [address] Dr. Erasmo Smith Protein [Mass/Vol] 6.6 g/dL Normal 6.4-8.2 The [facility] [facility] Comment on above: Performed By: #### B SUPERINTENDENT LOCAL #### [facility] [address] [place] [address] Dr. Erasmo Smith Sodium [Moles/Vol] 138 mmol/L Normal 136-145 [facility] Comment on above: Performed By: #### B SUPERINTENDENT LOCAL #### [facility] [address] [place] [address] Dr. Erasmo Smith Urea nitrogen [Mass/Vol] 24.0 mg/dL Critically high 7.0-18.0 [facility] Comment on above: Performed By: #### B SUPERINTENDENT LOCAL #### [facility] [address] [place] [address] Dr. Erasmo Smith Urea nitrogen/Creatinine [Mass ratio] 43.6 mg/mg Normal [facility] Comment on above: Performed By: #### B SUPERINTENDENT LOCAL #### [facility] [address] [address] [address] Erasmo Smith PROTIMEon 12-03-2022 INR Coag (PPP) [Relative time] 4.41 {INR} Critically high [facility] Comment on above: Performed By: #### C MREP #### [facility] [address] [address] [address] Erasmo Smith INR GUIDELINES SEE BELOW Normal [facility] Comment on above: Result Comment: ABNER RED INR: 2.0 - 3.0 CONDITIONS NOT LISTED BELOW 2.5 - 3.5 FOR PROSTHETIC HEART VALVE REPLACEMENT 2.5 - 3.5 RECURRENT THROMBOSIS Performed By: #### C MREP #### [facility] [address] [address] [address] Erasmo Smith PT Coag (PPP) [Time] 43.0 s Critically high 9.0-11.6 [facility] Comment on above: Performed By: #### C MREP #### [facility] [address] [address] [address] Erasmo Smith BLOOD CULTURE ID PANELon A. baumannii Not detected Normal NOT DETECTED The [facility] Comment on above: Performed By: #### B CID2 ####[facility] [address] [place], [place] [address]DrMeena Smith Bacteriodes fragilis Not detected Normal NOT DETECTED [facility] Comment on above: Performed By: #### B CID2 ####[facility] [address] [address]Dr. Erasmo Smith BCID CONTROLS PASSED Normal The [facility] Comment on above: Performed By: #### B CID2 ####[facility] [address] [address]Dr. Erasmo Smith BCIDBTHD BLOOD CULTURE BOTTLE INFORMATION Normal [facility] Comment on above: Performed By: #### B CID2 ####[facility] [address] [address]Dr. Erasmo Smith BCIDHD1 ANTIMICROBIAL RESISTANCE GENES Normal [facility] Comment on above: Performed By: #### B CID2 ####[facility] [address] [address]Dr. Yiean Smith BCIDHD2 SEE BELOW Normal [facility] Comment on above: Result Comment: Note : Antimicrobial resitance can occur via multiple mechanisms. A Not Detected result for the [employer] antomicrobial resistance gene assays does not indicate antimicrobial susceptibility. Subculturing is required for species identification and susceptibility testing of isolates. Performed By: #### B CID2 ####[facility] B[address] [place], [place] [address]Dr. Erasmo Smith BCIDHD3 Positive Normal [facility] Comment on above: Performed By: #### B CID2 ####[facility] [address]es[address] [place], [place] [address]Dr. Erasmo Smith BCIDHD4 Negative Normal [facility] Comment on above: Performed By: #### B CID2 ####[facility] Tsev[address]ln[address] [place], [place] [address]Dr. Yiean Smith BCIDHD5 YEAST Normal [facility] Comment on above: Performed By: #### B CID2 ####[facility] X[address] [place], [place] [address]Dr. Erasmo Smith Bottle Set: Set 1 Normal [facility] Comment on above: Performed By: #### B CID2 ####[facility] [address] [address]Dr. Heavenean Smith Bottle: Anaerobic Normal [facility] Comment on above: Performed By: #### B CID2 ####[facility] [address] [address]Dr. Yiean Smith C. neoformans/gattii Not detected Normal NOT DETECTED [facility] Comment on above: Performed By: #### B CID2 ####[facility] [address] [address]Dr. Yiean Smith Naye albicans Not detected Normal NOT DETECTED [facility] Comment on above: Performed By: #### B CID2 ####[facility] [address] [id number]. Yiean Smith Naye auris Not detected Normal NOT DETECTED [facility] Comment on above: Performed By: #### B CID2 ####[facility] [address] [id number]. Yiean Smith Naye glabrata Not detected Normal NOT DETECTED [facility] Comment on above: Performed By: #### B CID2 ####[facility] [address] [id number]. Yiean Smith Naye Krusei Not detected Normal NOT DETECTED The [facility] Comment on above: Performed By: #### B CID2 ####[facility] [address] [address]Dr. Yiean Smith Naye Parapsilosis Not detected Normal NOT DETECTED [facility] Comment on above: Performed By: #### B CID2 ####[facility] [address] [address]Dr. Yiean Smith Naye Tropicalis Not detected Normal NOT DETECTED [facility] Comment on above: Performed By: #### B CID2 ####[facility] Fcrdwgbqkf[address] [place], [place] [address]Dr. Erasmo Smith CTX-M Resistant Gene Not Applicable Normal NOT DETECTE D [facility] Comment on above: Performed By: #### B CID2 ####[facility] [address] [address]Dr. Yiean Smith E. Cloacae complex Not detected Normal NOT DETECTED [facility] Comment on above: Performed By: #### B CID2 ####[facility] [address] [id number]. Yilan Smith E. faecalis Not detected Normal NOT DETECTED The [facility] Comment on above: Performed By: #### B CID2 ####[facility] Uehvwdmmro[address] [place], [place] [address]Dr. Yiean Smith E. faecium Not detected Normal NOT DETECTED [facility] Comment on above: Performed By: #### B CID2 ####[facility] Y[address]zznigpb[address] [place], [place] [address]Dr. Erasmo Smith Enterobacteriaceae Detected Critically abnormal NOT DETECTED [facility] Comment on above: Performed By: #### B CID2 ####[facility] Hfiwvcumin48[address] [place], [place] [address]Dr. Erasmo Smith Escherichia coli Detected Critically abnormal NOT DETECTED [facility] Comment on above: Performed By: #### B CID2 ####[facility] Kiyajjmgyr[address] [place], [place] [address]Dr. Erasmo Smith H. influenzae Not detected Normal NOT DETECTED [facility] Comment on above: Performed By: #### B CID2 ####[facility] Qfxyifmlgw[address] [place], [place] [address]Dr. Erasmo Smith IMP Resistant Gene Not Applicable Normal NOT DETECTED [facility] Comment on above: Performed By: #### B CID2 ####[facility] Acqvnlnzdc[address] [place], [place] [address]Dr. Erasmo Smith K. oxytoca Not detected Normal NOT DETECTED [facility] Comment on above: Performed By: #### B CID2 ####[facility] Lkouruyuqp[address] [place], [place] [address]Dr. Erasmo Smith K. pneumoniae Not detected Normal NOT DETECTED [facility] Comment on above: Performed By: #### B CID2 ####[facility] Tooherbaox[address] [place], [place] [address]Dr. Erasmo Smith Klebsiella aerogenes Not detected Normal NOT DETECTED [facility] Comment on above: Performed By: #### B CID2 ####[facility] Fxgnutydlt[address] [place], [place] [address]Dr. Erasmo Smith KPC Resistant Gene Not detected Normal NOT DETECTED [facility] Comment on above: Performed By: #### B CID2 ####[facility] Gusckiquqn19[address] [place], [place] [address]Dr. Erasmo Smith List. monocytogenes Not detected Normal NOT DETECTED [facility] Comment on above: Performed By: #### B CID2 ####[facility] Gylhxgcicr138[address] [place], [place] [address]Dr. Erasmo Smith Mcr-1 Resistant Gene Not Applicable Normal NOT DETECTE D [facility] Comment on above: Performed By: #### B CID2 ####[facility] Wpkjewkugo22[address] [place], [place] [address]Dr. Heavenlan Smith mecA/C Not Applicable Normal NOT DETECTED [facility] Comment on above: Performed By: #### B CID2 ####[facility] Ffhblnoftx70[address] [place], [place] [address]Dr. Erasmo Smith mecA/C MREJ Not Applicable Normal NOT DETECTED [facility] Comment on above: Performed By: #### B CID2 ####[facility] Qxitfphsrk[address] [place], [place] [address]Dr. Erasmo Smith N. meningitidis Not detected Normal NOT DETECTED [facility] Comment on above: Performed By: #### B CID2 ####[facility] Iityvnqrdf7927[address] [place], [place] [address]Dr. Erasmo Smith NDM Resistant Gene Not Applicable Normal NOT DETECTED [facility] Comment on above: Performed By: #### B CID2 ####[facility] Wishwxfttv539[address] [place], [place] [address]Dr. Erasmo Smith Oxa-48-like Not Applicable Normal NOT DETECTED [facility] Comment on above: Performed By: #### B CID2 ####[facility] Grvaeqzpev[address] [place], [place] [address]Dr. Erasmo Smith Proteus Not detected Normal NOT DETECTED [facility] Comment on above: Performed By: #### B CID2 ####[facility] Vjxafqjxhk22[address] [place], [place] [address]Dr. Erasmo Smith Pseud. aeruginosa Not detected Normal NOT DETECTED [facility] Comment on above: Performed By: #### B CID2 ####[facility] Lboqnidzxo[address] [place], [place] [address]Dr. Erasmo Smith S. maltophilia Not detected Normal NOT DETECTED [facility] Comment on above: Performed By: #### B CID2 ####[facility] Nfnvvqzscv[address] [place], [place] [address]Dr. Erasmo Smith Salmonella Not detected Normal NOT DETECTED [facility] Comment on above: Performed By: #### B CID2 ####[facility] [address] [address]Dr. Erasmo Smith Seratia marcescens Not detected Normal NOT DETECTED [facility] Comment on above: Performed By: #### B CID2 ####[facility] [address] [address]Dr. Erasmo Smith Site: l ac Normal [facility] Comment on above: Performed By: #### B CID2 ####[facility] S[address]tmukgnr[address] [place], [place] [address]Dr. Erasmo Smith Staph. aureus Not detected Normal NOT DETECTED [facility] Comment on above: Performed By: #### B CID2 ####[facility] Xexiowarpq17[address] [place], [place] [address]Dr. Erasmo Smith Staph. epidermidis Not detected Normal NOT DETECTED [facility] Comment on above: Performed By: #### B CID2 ####[facility] Axzeilwwqc164[address] [place], [place] [address]Dr. Erasmo Smith Staph. lugdunensis Not detected Normal NOT DETECTED [facility] Comment on above: Performed By: #### B CID2 ####[facility] Vfxikizqmu[address] [place], [place] [address]Dr. Erasmo Smith Staphylococcus Not detected Normal NOT DETECTED [facility] Comment on above: Performed By: #### B CID2 ####[facility] Spehqdyrtd[address] [place], [place] [address]Dr. Erasmo Smith Strep. agalactiae Not detected Normal NOT DETECTED [facility] Comment on above: Performed By: #### B CID2 ####[facility] Fndahhoowg[address] [place], [place] [address]Dr. Erasmo Smith Strep. pneumoniae Not detected Normal NOT DETECTED [facility] Comment on above: Performed By: #### B CID2 ####[facility] Tfrcfvxvwd[address] [place], [place] [address]Dr. Erasmo Smith Strep. pyogenes Not detected Normal NOT DETECTED [facility] Comment on above: Performed By: #### B CID2 ####[facility] [address] [address]Dr. Erasmo Smith Streptococcus Not detected Normal NOT DETECTED [facility] Comment on above: Performed By: #### B CID2 ####[facility] [address] [address]Dr. Erasmo Smith Fran/B Resist. Gene Not detected Normal NOT DETECTED [facility] Comment on above: Performed By: #### B CID2 ####[facility] [address]filf[address] [address]Dr. Erasmo Smith VIM Resistant Gene Not Applicable Normal NOT DETECTED [facility] Comment on above: Performed By: #### B CID2 ####[facility] [address] [address]Dr. Erasmo Smith BNPon 12-02-2022 Natriuretic peptide B (Bld) [Mass/Vol] 1059.0 pg/mL Normal <=1,800.0 [facility] Comment on above: Performed By: #### B SUPERINTENDENT LOCAL #### [facility] [address] [address] [address] Erasmo Smith CBC AUTO DIFFon 12-02-2022 BASO # 0.0 103/ul Normal 0.0-0.1 [facility] Comment on above: Performed By: #### C BC ####[facility] [address] [address]Dr. Erasmo Smith Basophils/100 WBC (Bld) 0.2 % Normal 0.2-2.0 [facility] Comment on above: Performed By: #### C BC ####[facility] Aqcmcjtpwd[address] [place], [place] [address]Dr. Erasmo Smith EO # 0.0 103/ul Normal 0.0-0.7 [facility] Comment on above: Performed By: #### C BC ####[facility] [address]xts[address] [address]DrMeena Smith Eosinophils/100 WBC (Bld) 0.0 % Critically low 0.9-7.0 [facility] Comment on above: Performed By: #### C BC ####[facility] [address] [address]Dr. Erasmo Smith Erythrocyte distribution width (RBC) [Ratio] 17.3 % Critically high 11.0-15.0 [facility] Comment on above: Performed By: #### C BC ####[facility] [address] [address]Dr. Erasmo Smith Hematocrit (Bld) [Volume fraction] 31.4 % Critically low 36.0-48.0 [facility] Comment on above: Performed By: #### C BC ####[facility] [address]mp[address] [address]Dr. Erasmo Smith Hemoglobin (Bld) [Mass/Vol] 10.0 g/dL Critically low 12.0-16.0 [facility] Comment on above: Performed By: #### C BC ####[facility] Tlrwdvkkts[address] [place], [place] [address]Dr. Erasmo Smith IG # 0.06 10e3/ul Critically high 0.00-0.03 [facility] Comment on above: Performed By: #### C BC ####[facility] Paqqlvopoq[address] [place], [place] [address]Dr. Erasmo Smith IG % 0.4 % Normal 0.0-0.5 [facility] Comment on above: Performed By: #### C BC ####[facility] Epvvfoszyn[address] [place], [place] [address]Dr. Erasmo Smith LYMPH # 1.3 103/ul Normal 1.2-3.8 [facility] Comment on above: Performed By: #### C BC ####[facility] Mjbpksjkyd[address] [place], [place] [address]Dr. Erasmo Smith Lymphocytes/100 WBC (Bld) 8.1 % Critically low 20.5-60.0 [facility] Comment on above: Performed By: #### C BC ####[facility] K[address]ptcwau[address] [place], [place] [address]Dr. Erasmo Luis MANUAL DIFF REQ NO Normal [facility] Comment on above: Performed By: #### C BC ####[facility] [address] [id number]. Erasmo Smith MCH (RBC) [Entitic mass] 25.6 pg Critically low 26.7-34.0 [facility] Comment on above: Performed By: #### C BC ####[facility] [address]bw[address] [address]Dr. Erasmo Smith MCHC (RBC) [Mass/Vol] 31.8 g/dL Normal 29.9-35.2 [facility] Comment on above: Performed By: #### C BC ####[facility] [address]cr[address] [id number]. Erasmo Luis MCV (RBC) [Entitic vol] 80.3 fL Critically low 81.0-99.0 [facility] Comment on above: Performed By: #### C BC ####[facility] Gsgawtghnu[address] [place], [place] [address]Dr. Erasmo Smith MONO # 0.6 103/ul Normal 0.3-0.8 [facility] Comment on above: Performed By: #### C BC ####[facility] L[address]lcwnmvcn[address] [place], [place] [address]Dr. Heavenean Smith Monocytes/100 WBC (Bld) 3.7 % Normal 1.7-12.0 [facility] Comment on above: Performed By: #### C BC ####[facility] [address]ueqpcj[address] [place], [place] [address]Dr. Heavenean Smith NEUT # 14.5 103/ul Critically high 1.4-6.5 [facility] Comment on above: Performed By: #### C BC ####[facility] [address] [place], [place] [id number]. Erasmo Smith Neutrophils/100 WBC (Bld) 87.6 % Critically high 43.0-75.0 [facility] Comment on above: Performed By: #### C BC ####[facility] [address]jgtxpya[address] [place], [place] [address]Dr. Erasmo Smith Platelet mean volume (Bld) [Entitic vol] 10.0 fL Normal 9.5-13.5 [facility] Comment on above: Performed By: #### C BC ####[facility] [address] [place], [place] [address]Jr. Erasmo Smith PLT 206 103/ul Normal 150-450 [facility] Comment on above: Performed By: #### C BC ####[facility] Qlthfqffjh5[address] [place], [place] [address]Xt. Erasmo Smith RBC 3.91 106/ul Critically low 4.20-5.40 [facility] Comment on above: Performed By: #### C BC ####[facility] [address] [place], [place] [address]Yn. Erasmo Smith WBC 16.5 103/ul Critically high 4.0-11.0 [facility] Comment on above: Performed By: #### C BC ####[facility] [address]kw[address]ltwg4264 [place], [place] [address]Gi. Erasmo Smith ECHOCARDIO M/2D COMPLETEon 0 12-02-2022 ECHOCARDIO M/2D COMPLETE Patient: BREANN STARKS Exam Date: 12/02/2022 : 1945 Gender:F Ordering : KAYLEY HOLMAN . Admission #: [id number] Family : DR LUISANA JOHNSON . Order #: [id number] CLICK HERE TO VIEW EXAM ECHOCARDIOGRAM REPORT [...] Salazar M.D. on 12/02/2022 at 21:58 Normal [facility] MAGNESIUMon 12-02-2022 Magnesium [Mass/Vol] 2.0 mg/dL Normal 1.8-2.4 [facility] Comment on above: Performed By: #### B SUPERINTENDENT LOCAL #### [facility] [address] [place] [address] Dr. Erasmo Smith PROF 14(COMP METB)on 023 Albumin [Mass/Vol] 2.7 g/dL Critically low 3.4-5.0 [facility] Comment on above: Performed By: #### B SUPERINTENDENT LOCAL #### [facility] [address] [place] [address] Dr. Erasmo Smith Albumin/Globulin [Mass ratio] 0.6 {ratio} Normal [facility] Comment on above: Performed By: #### B SUPERINTENDENT LOCAL #### [facility] [address] [place] [address] Dr. Erasmo Smith ALP [Catalytic activity/Vol] 128 U/L Critically high 46-116 [facility] Comment on above: Performed By: #### B SUPERINTENDENT LOCAL #### [facility] [address] [place] [address] Dr. Erasmo Smith ALT [Catalytic activity/Vol] 34 U/L Normal 14-59 [facility] Comment on above: Performed By: #### B SUPERINTENDENT LOCAL #### [facility] [address] [place] [address] Dr. Erasmo Smith Anion gap [Moles/Vol] 10.6 mmol/L Normal [facility] Comment on above: Performed By: #### B SUPERINTENDENT LOCAL #### [facility] [address] [place] [address] Dr. Erasmo Smith AST [Catalytic activity/Vol] 27 U/L Normal 15-37 [facility] Comment on above: Performed By: #### B SUPERINTENDENT LOCAL #### [facility] [address] [place] [address] Dr. Erasmo Smith Bilirubin [Mass/Vol] 0.5 mg/dL Normal 0.2-1.0 [facility] Comment on above: Performed By: #### B SUPERINTENDENT LOCAL #### [facility] [address] [address] [address] Erasmo Smith Calcium [Mass/Vol] 8.4 mg/dL Critically low 8.5-10.[address] [facility] Comment on above: Performed By: #### B SUPERINTENDENT LOCAL #### [facility] [address] [address] [address] Erasmo Smith Chloride [Moles/Vol] 104 mmol/L Normal 98-107 [facility] Comment on above: Performed By: #### B SUPERINTENDENT LOCAL #### [facility] [address] [place] [address] Dr. Erasmo Smith CO2 [Moles/Vol] 26.2 mmol/L Normal 21.0-32.0 [facility] Comment on above: Performed By: #### B SUPERINTENDENT LOCAL #### [facility] [address] [place] [address] Dr. Erasmo Smith Creatinine [Mass/Vol] 0.52 mg/dL Critically low 0.55-1.02 [facility] Comment on above: Performed By: #### B SUPERINTENDENT LOCAL #### [facility] [address] [place] [address] Dr. Erasmo Smith EGFR-AF LIBYAN >60 Normal >=60 [facility] Comment on above: Performed By: #### B SUPERINTENDENT LOCAL #### [facility] [address] [place] [address] Dr. Erasmo Smith EGFR-NON AF LIBYAN >60 Normal >=60 [facility] Comment on above: Performed By: #### B SUPERINTENDENT LOCAL #### [facility] [address] [place] [address] Dr. Erasmo Smith Globulin (S) [Mass/Vol] 4.3 g/dL Normal [facility] Comment on above: Performed By: #### B SUPERINTENDENT LOCAL #### [facility] [address] [place] [address] Dr. Erasmo Smith Glucose [Mass/Vol] 135 mg/dL Critically high 74-106 T [facility] Comment on above: Performed By: #### B SUPERINTENDENT LOCAL #### [facility] [address] [place] [address] Dr. Erasmo Smith Potassium [Moles/Vol] 3.8 mmol/L Normal 3.5-5.1 [facility] Comment on above: Performed By: #### B SUPERINTENDENT LOCAL #### [facility] [address] [place] [address] Dr. Erasmo Smith Protein [Mass/Vol] 7.0 g/dL Normal 6.4-8.2 [facility] Comment on above: Performed By: #### B SUPERINTENDENT LOCAL #### [facility] [address] [address] [address] Erasmo Smith Sodium [Moles/Vol] 137 mmol/L Normal 136-145 [facility] Comment on above: Performed By: #### B SUPERINTENDENT LOCAL #### [facility] [address] [place] [address] Dr. Erasmo Smith Urea nitrogen [Mass/Vol] 16.0 mg/dL Normal 7.0-18.0 [facility] Comment on above: Performed By: #### B SUPERINTENDENT LOCAL #### [place] [facility] [address] [place] [address] Dr. Erasmo Smith Urea nitrogen/Creatinine [Mass ratio] 30.8 mg/mg Normal [facility] Comment on above: Performed By: #### B SUPERINTENDENT LOCAL #### [facility] [address] [place] [address] Dr. Erasmo Smith PROTIMEon 12-02-2022 INR Coag (PPP) [Relative time] 4.39 {INR} Critically high [facility] Comment on above: Performed By: #### P T #### [facility] [address] [place] [address] Dr. Erasmo Smith INR GUIDELINES SEE BELOW Normal [facility] Comment on above: Result Comment: ABNER RED INR: 2.0 - 3.0 CONDITIONS NOT LISTED BELOW 2.5 - 3.5 FOR PROSTHETIC HEART VALVE REPLACEMENT 2.5 - 3.5 RECURRENT THROMBOSIS Performed By: #### P T #### [facility] [address] [place] [address] Dr. Erasmo Smith PT Coag (PPP) [Time] 42.8 s Critically high 9.0-11.6 [facility] Comment on above: Performed By: #### P T #### [facility] [address] [place], [place] [address] Dr. Erasmo Smith UA RANDOM W/MICROSCOPICon BACTERIA NONE SEEN Normal NONE SEEN [facility] Comment on above: Performed By: #### U AMIC ####[facility] [address] [place] [address]Dr. Erasmo Smith Bilirubin Ql (U) Negative Normal NEGATIVE [facility] Comment on above: Performed By: #### U AMIC ####[facility] [address] [place] [address]Dr. Erasmo Smith CAST NONE SEEN Normal NONE SEEN [facility] Comment on above: Performed By: #### U AMIC ####[facility] [address] [place] [address]Dr. Erasmo Smith Clarity (U) CLEAR Normal CLEAR [facility] Comment on above: Performed By: #### U AMIC ####[facility] [address] [place] [address]Dr. Erasmo Smith Color (U) YELLOW Normal YELLOW [facility] Comment on above: Performed By: #### U AMIC ####[facility] [address] [place] [address]Dr. Erasmo Smith Crystals LM Nom (Urine sed) NONE SEEN Normal NONE SEEN [facility] Comment on above: Performed By: #### U AMIC ####[facility] [address] [place] [address]Dr. Erasmo Smith Epithelial cells LM Ql (Urine sed) RARE Normal NONE SEEN /RARE [facility] Comment on above: Performed By: #### U AMIC ####[facility] [address] [place] [address]Dr. Erasmo Smith Glucose Ql (U) Negative Normal NEGATIVE [facility] Comment on above: Performed By: #### U AMIC ####[facility] [address] [place] [address]Dr. Erasmo Smith Hemoglobin Ql (U) SMALL Abnormal NEGATIVE [facility] Comment on above: Performed By: #### U AMIC ####[facility] [address] [place] [address]Dr. Erasmo Smith Ketones Ql (U) 15 mg/dl Abnormal NEGATIVE [facility] Comment on above: Performed By: #### U AMIC ####[facility] [address] [place], [place] [address]Dr. Erasmo Smith LEUKOCYTES Negative Normal NEGATIVE [facility] Comment on above: Performed By: #### U AMIC ####[facility] [address] [place], [place] [address]Dr. Heavenean Smith MUCOUS NONE SEEN Normal NONE SEEN [facility] Comment on above: Performed By: #### U AMIC ####[facility] [address] [place], [place] [address]Dr. Erasmo Smith Nitrite Ql (U) Negative Normal NEGATIVE [facility] Comment on above: Performed By: #### U AMIC ####[facility] [address] [place], [place] [address]Dr. Erasmo Smith pH (U) 6.0 [pH] Normal 5-9 [facility] Comment on above: Performed By: #### U AMIC ####[facility] [address] [place], [place] [address]Dr. Erasmo Smith RBC 0-2 Normal 0-2 [facility] Comment on above: Performed By: #### U AMIC ####[facility] [address] [place], [place] [address]Dr. Erasmo Smith SPEC GRAVITY 1.025 Normal 1.005-<=1.02 5 [facility] Comment on above: Performed By: #### U AMIC ####[facility] [address] [place], [place] [address]Dr. Erasmo Smith UA PROTEIN TRACE Normal NEGATIVE/ TRACE [facility] Comment on above: Performed By: #### U AMIC ####[facility] [address] [place], [place] [address]Dr. Erasmo Smith Urobilinogen Qn (U) 4 {Shraddha'U}/dL Abnormal 0.2 - 1.0 [facility] Comment on above: Performed By: #### U AMIC ####[facility] [address] [place], [place] [address]CgDr. Erasmo Smith WBC 0-2 Abnormal NONE SEEN [facility] Comment on above: Performed By: #### U AMIC ####[facility] [address] [place] [id number]. Erasmo Smith CARDIAC ROSA ELENA 3-6on 3 CK [Catalytic activity/Vol] 53 U/L Normal 26-192 [facility] Comment on above: Performed By: #### C MREP #### [facility] [address] [place] [address] [address] Erasmo BAE.MB [Mass/Vol] 0.90 ng/mL Normal <=3.60 [facility] Comment on above: Performed By: #### C MREP #### [facility] [address] [place] [address] Dr. Erasmo Smith HSTROP 116.7 pg/mL Critically high 4.0-51.3 [facility] Comment on above: Result Comment: CUT- OFF POINTS HAVE BEEN ESTABLISHED BASED ON THE FOURTH UNIVERSAL DEFINITIONS OF MYOCARDIAL INFARCTION. THE UPPER REFERENCE LIMIT (URL) OF TROPONIN, DEFINED THE 99TH PERCENTILE OF cTnI DISTRIBUTION IN A REFERENCE POPULATION, HAS BEEN CONFIRMED THE DECISION THRESHOLD FOR OK DIAGNOSIS. Performed By: #### C MREP #### [facility] [address] [place] [address] Dr. Erasmo Smith CK [Catalytic activity/Vol] 47 U/L Normal 26-192 [facility] Comment on above: Performed By: #### B SUPERINTENDENT LOCAL #### [facility] [address] [place] [address] Dr. Erasmo BAE.MB [Mass/Vol] 1.00 ng/mL Normal <=3.60 [facility] Comment on above: Performed By: #### B SUPERINTENDENT LOCAL #### [facility] [address] [place] [address] Dr. Erasmo Smith HSTROP 154.3 pg/mL Critically high 4.0-51.3 [facility] Comment on above: Result Comment: CUT- OFF POINTS HAVE BEEN ESTABLISHED BASED ON THE FOURTH UNIVERSAL DEFINITIONS OF MYOCARDIAL INFARCTION. THE UPPER REFERENCE LIMIT (URL) OF TROPONIN, DEFINED THE 99TH PERCENTILE OF cTnI DISTRIBUTION IN A REFERENCE POPULATION, HAS BEEN CONFIRMED THE DECISION THRESHOLD FOR OK DIAGNOSIS. Performed By: #### B SUPERINTENDENT LOCAL #### [facility] [address] [place] [address] Dr. Erasmo Smith CBC W MANUAL DIFFon 12-02-19 23 ATYPICAL LYMPH # Normal [facility] Comment on above: Performed By: #### C BCMAN #### [facility] [address] [place] [address] Dr. Erasmo Smith ATYPICAL LYMPH % Normal [facility] Comment on above: Performed By: #### C ANGELA #### [facility] [address] [place] [address] Dr. Erasmo Smith BAND # 0.6 103/ul Critically high 0.0-0.3 [facility] Comment on above: Performed By: #### C ANGELA #### [facility] [address] [place] [address] Dr. Erasmo Smith BAND % 3 % Normal 0-5 [facility] Comment on above: Performed By: #### C BCMAN #### [facility] [address] [place] [address] Dr. Erasmo Smith BASOM # 0.00 103/ul Normal 0.00-0.10 [facility] Comment on above: Performed By: #### C ANGELA #### [facility] [address] [place] [address] Dr. Erasmo Smith BASOM % 0.0 % Critically low 0.2-2.0 [facility] Comment on above: Performed By: #### C BCBLAISE #### [facility] [address] [place] [address] Dr. Erasmo Smith BLAST # Normal [facility] Comment on above: Performed By: #### C BCMAN #### [facility] [address] [place] [address] Dr. Erasmo Smith BLAST % Normal [facility] Comment on above: Performed By: #### C BCMAN #### [facility] [address] [place] [address] Dr. Erasmo Smith CORRECTED WBC Normal 4.0-11.0 [facility] Comment on above: Performed By: #### C ANGELA #### [facility] [address] [place] [address] [address] Erasmo Smith EOS # 0.19 103/ul Normal 0.00-0.70 [facility] Comment on above: Performed By: #### C ANGELA #### [facility] [address] [place] [address] [address] Erasmo Smith EOS% 1.0 % Normal 0.9-7.0 [facility] Comment on above: Performed By: #### C ANGELA #### [facility] [address] [place] [address] Dr. Erasmo Smith HCT 32.7 % Critically low 36.0-48.0 [facility] Comment on above: Performed By: #### C ANGELA #### [facility] [address] [place] [address] Dr. Erasmo Smith HGB 10.5 g/dl Critically low 12.0-16.0 [facility] Comment on above: Performed By: #### C ANGELA #### [facility] [address] [place] [address] Dr. Erasmo Smith LYMPHM # 0.76 103/ul Critically low 1.20-3.80 [facility] Comment on above: Performed By: #### C ANGELA #### [facility] [address] [place] [address] Dr. Erasmo Smith LYMPHM% 4.0 % Critically low 20.5-60.0 [facility] Comment on above: Performed By: #### C ANGELA #### [facility] [address] [place] [address] Dr. Erasmo Smith MCH 25.9 pg Critically low 26.7-34.0 [facility] Comment on above: Performed By: #### C ANGELA #### [facility] [address] [place] [address] [address] Erasmo Smith MCHC 32.1 g/dl Normal 29.9-35.2 [facility] Comment on above: Performed By: #### C ANGELA #### [facility] [address] [place] [address] Dr. Erasmo Smith MCV 80.5 fL Critically low 81.0-99.0 [facility] Comment on above: Performed By: #### C ANGELA #### [facility] [address] [place] [address] Dr. Erasmo Smith METAMYELOCYTE # Normal [facility] Comment on above: Performed By: #### C BCBLAISE #### [facility] [address] [place] [address] Dr. Erasmo Smith METAMYELOCYTE % Normal [facility] Comment on above: Performed By: #### C ANGELA #### [facility] [address] [place] [address] Dr. Erasmo Smith MONOM# 1.14 103/ul Critically high 0.30-0.80 [facility] Comment on above: Performed By: #### C ANGELA #### [facility] [address] [place] [address] Dr. Erasmo Smith MONOM% 6.0 % Normal 1.7-12.0 [facility] Comment on above: Performed By: #### C ANGELA #### [facility] [address] [place] [address] Dr. Erasmo Smith MPV 9.4 fL Critically low 9.5-13.5 [facility] Comment on above: Performed By: #### C ANGELA #### [facility] [address] [place] [address] Dr. Erasmo Smith MYELOCYTE # Normal [facility] Comment on above: Performed By: #### C ANGELA #### [facility] [address] [place] [address] Dr. Erasmo Smith MYELOCYTE % Normal [facility] Comment on above: Performed By: #### C ANGELA #### [facility] [address] [place] [address] Dr. Erasmo Smith NRBC Normal [facility] Comment on above: Performed By: #### C ANGELA #### [facility] [address] [place], [place] [address] Dr. Erasmo Smith PLT 195 103/ul Normal 150-450 [facility] Comment on above: Performed By: #### C ANGELA #### [facility] [address] [place], [place] [address] Dr. Erasmo Smith RBC 4.06 106/ul Critically low 4.20-5.40 [facility] Comment on above: Performed By: #### C ANGELA #### [facility] [address] [place] [address] [address] Erasmo Smith RDW 17.7 % Critically high 11.0-15.0 [facility] Comment on above: Performed By: #### C ANGELA #### [facility] [address] [place] [address] [address] Erasmo Smith SEG # 16.34 103/ul Critically high 1.40-6.50 [facility] Comment on above: Performed By: #### C AGNELA #### [facility] [address] [place] [address] [address] Erasmo Smith SEG % 86.0 % Critically high 43.0-75.0 [facility] Comment on above: Performed By: #### C ANGELA #### [facility] [address] [place] [id number] [address] Erasmo Smith WBC 19.0 103/ul Critically high 4.0-11.0 [facility] Comment on above: Performed By: #### Yamile MILLER #### [facility] [address] [place] [address] [address] HEAD WO CONon [...] Date: 2022 14:50 Normal [facility] CULTURE BLOODon 2022 Microscopic examination of blood, culture Culture Observations: Aerobic and Anaerobic bottle positive. BCID: E. Coli Culture Observations: Refer to for VIOLET. Isolate 1 Escherichia coli Growth of Normal [facility] Comment on above: Performed By: #### B LDCX2 ####[facility] [address] [place], [place] [address]HjDr. Erasmo Smith [facility]on [facility]-11 SARS-CoV-2 (COVID-19) RNA EMILY+probe Ql (Unsp spec) Not detected Normal NOT DETECTED [facility] Comment on above: Result Comment: When [...] for this test is supported by the Telephone Order Clerk of Health and Human Service's declaration that [...] By: #### C MREP #### [facility] [address], [place] [address] Dr. Erasmo Smith LACTATE/LACTIC ACIDon 2022 Lactate [Moles/Vol] 1.2 mmol/L Normal 0.4-2.0 [facility] Comment on above: Performed By: #### L ACT ####[facility] [address] [place] [id number]. Erasmo Smith PH VENOUS BLOODon 2022 PCO2 VENOUS 37.8 mmHg Critically low 40.0-52.0 [facility] Comment on above: Performed By: #### P HVEN ####[facility] [address] [place] [id number]. Erasmo Smith pH VENOUS 7.417 Normal 7.330-7.430 [facility] Comment on above: Performed By: #### P HVEN ####[facility] [address] [place] [address]Dr. Erasmo Smith PROF 14(COMP METB)on 023 Albumin [Mass/Vol] 3.1 g/dL Critically low 3.4-5.0 [facility] Comment on above: Performed By: #### H ALEXSANDER, CMP ####[facility] [address] [place] [address]Dr. Erasmo Smith Albumin/Globulin [Mass ratio] 0.8 {ratio} Normal [facility] Comment on above: Performed By: #### H ALEXSANDER, CMP ####[facility] [address] [place] [address]Dr. Erasmo Smith ALP [Catalytic activity/Vol] 194 U/L Critically high 46-116 [facility] Comment on above: Performed By: #### H ALEXSANDER, CMP ####[facility] [address] [place] [address]Dr. Erasmo Smith ALT [Catalytic activity/Vol] 37 U/L Normal 14-59 [facility] Comment on above: Performed By: #### H ALEXSANDER, CMP ####[facility] [address] [place] [address]Dr. Erasmo Smith Anion gap [Moles/Vol] 14.6 mmol/L Normal [facility] Comment on above: Performed By: #### H ALEXSANDER, CMP ####[facility] [address] [place] [address]Dr. Erasmo Smith AST [Catalytic activity/Vol] 32 U/L Normal 15-37 [facility] Comment on above: Performed By: #### H STROPN, CMP ####[facility] [address] [place] [address]Dr. Erasmo Smith Bilirubin [Mass/Vol] 1.0 mg/dL Normal 0.2-1.0 [facility] Comment on above: Performed By: #### H STROPN, CMP ####[facility] [address] [place], [place] [address]Dr. Erasmo Smith Calcium [Mass/Vol] 8.9 mg/dL Normal 8.5-10.1 [facility] Comment on above: Performed By: #### H STROPN, CMP ####[facility] [address] [place], [place] [address]Dr. Erasmo Smith Chloride [Moles/Vol] 103 mmol/L Normal 98-107 [facility] Comment on above: Performed By: #### H STROPN, CMP ####[facility] [address] [place], [place] [address]Dr. Erasmo Smith CO2 [Moles/Vol] 23.6 mmol/L Normal 21.0-32.0 [facility] Comment on above: Performed By: #### H STROPN, CMP ####[facility] [address] [place], [place] [address]Dr. Erasmo Smith Creatinine [Mass/Vol] 0.69 mg/dL Normal 0.55-1.02 [facility] Comment on above: Performed By: #### H STROPN, CMP ####[facility] [address] [place], [place] [address]Dr. Heavenean Luis EGFR-AF LIBYAN >60 Normal >=60 [facility] Comment on above: Performed By: #### H STROPN, CMP ####[facility] [address] [place], [place] [address]Dr. Erasmo Smith EGFR-NON AF LIBYAN >60 Normal >=60 [facility] Comment on above: Performed By: #### H STROPN, CMP ####[facility] [address] [place], [place] [address]Dr. Erasmo Smith Globulin (S) [Mass/Vol] 4.1 g/dL Normal [facility] Comment on above: Performed By: #### H ALEXSANDER, CMP ####[facility] [address] [place] [address]Dr. Erasmo Smith Glucose [Mass/Vol] 121 mg/dL Critically high 74-106 [facility] Comment on above: Performed By: #### H ALEXSANDER, CMP ####[facility] [address] [place] [address]Dr. Erasmo Smith Potassium [Moles/Vol] 3.2 mmol/L Critically low 3.5-5.1 [facility] Comment on above: Performed By: #### H ALEXSANDER, CMP ####[facility] [address] [place], [place] [address]Dr. Erasmo Smith Protein [Mass/Vol] 7.2 g/dL Normal 6.4-8.2 [facility] Comment on above: Performed By: #### Kymberly BELTRE, CMP ####[facility] [address] [place], [place] [address]Dr. Erasmo Smith Sodium [Moles/Vol] 138 mmol/L Normal 136-145 [facility] Comment on above: Performed By: #### H ALEXSANDER, CMP ####[facility] [address] [place], [place] [address]Dr. Erasmo Smith Urea nitrogen [Mass/Vol] 17.0 mg/dL Normal 7.0-18.0 [facility] Comment on above: Performed By: #### H ALEXSANDER, CMP ####[facility] [address] [place], [place] [address]Dr. Erasmo Smith Urea nitrogen/Creatinine [Mass ratio] 24.6 mg/mg Normal [facility] Comment on above: Performed By: #### H ALEXSANDER, CMP ####[facility] [address] [place] [address]Dr. Erasmo Smith PROTIMEon 2022 INR Coag (PPP) [Relative time] 3.58 {INR} Normal [facility] Comment on above: Performed By: #### P T, PTT #### [facility] [address] [place] [address] Dr. Erasmo Smith INR GUIDELINES SEE BELOW Normal [facility] Comment on above: Result Comment: ABNER RED INR: 2.0 - 3.0 CONDITIONS NOT LISTED BELOW 2.5 - 3.5 FOR PROSTHETIC HEART VALVE REPLACEMENT 2.5 - 3.5 RECURRENT THROMBOSIS Performed By: #### P T, PTT #### [facility] [address] [place] [address] Dr. Erasmo Smith PT Coag (PPP) [Time] 35.3 s Critically high 9.0-11.6 [facility] Comment on above: Performed By: #### P T, PTT #### [facility] [address] [place] [address] Dr. Erasmo Smith PTTon 2022 aPTT Coag (Bld) [Time] 40.3 s Critically high 22.3-36. 2 [facility] Comment on above: Performed By: #### P T, PTT #### [facility] [address] [place] [address] Dr. Erasmo Smith TROPONIN, HIGH SENSITIVITYon 2022 HSTROP 194.7 pg/mL Critically high 4.0-51.3 [facility] Comment on above: Result Comment: CUT- OFF POINTS HAVE BEEN ESTABLISHED BASED ON THE FOURTH UNIVERSAL DEFINITIONS OF MYOCARDIAL INFARCTION. THE UPPER REFERENCE LIMIT (URL) OF TROPONIN, DEFINED THE 99TH PERCENTILE OF cTnI DISTRIBUTION IN A REFERENCE POPULATION, HAS BEEN CONFIRMED THE DECISION THRESHOLD FOR OK DIAGNOSIS. Performed By: #### C MREP #### [facility] [address] [place] [address] Dr. Erasmo Smith HSTROP 218.0 pg/mL Critically high 4.0-51.3 [facility] Comment on above: Result Comment: CUT- OFF POINTS HAVE BEEN ESTABLISHED BASED ON THE FOURTH UNIVERSAL DEFINITIONS OF MYOCARDIAL INFARCTION. THE UPPER REFERENCE LIMIT (URL) OF TROPONIN, DEFINED THE 99TH PERCENTILE OF cTnI DISTRIBUTION IN A REFERENCE POPULATION, HAS BEEN CONFIRMED THE DECISION THRESHOLD FOR OK DIAGNOSIS. Performed By: #### B SUPERINTENDENT LOCAL #### [facility] [address] [place] [address] Dr. Erasmo Smith XR CHEST 1 Von [...] by: HONG ALSTON Date: 2022 14:18 Normal [facility] MAMM SCREEN 3D TOÑITO CADon 11-26-2022 MG MAMM SCREEN 3D TOÑITO CAD Patient: BREANN STARKS Exam Date: 11/26/2022 : 1945 Gender:F Ordering : DR LUISANA JOHNSON . Admission #: [id number] Family : Order #: [id number] CLICK HERE TO VIEW EXAM RADIOLOGY REPORT [...] Treatments None Family Cancers None LOCATION: [facility] BREAST COMPOSITION: Heterogeneously dense,which may obscure [...] Brown M.D. on 11/26/2022 at 14:13 Normal [facility] PROF 14(COMP METB)on 022 Albumin [Mass/Vol] 3.8 g/dL Normal 3.4-5.0 [facility] Comment on above: Performed By: #### C MREP #### [facility] [address] [place] [address] Dr. Erasmo Smith Albumin/Globulin [Mass ratio] 0.8 {ratio} Normal [facility] Comment on above: Performed By: #### C MREP #### [facility] [address] [place] [address] [address] Erasmo Smith ALP [Catalytic activity/Vol] 102 U/L Normal 46-116 [facility] Comment on above: Performed By: #### C MREP #### [facility] [address] [place] [address] Dr. Erasmo Smith ALT [Catalytic activity/Vol] 47 U/L Normal 14-59 [facility] Comment on above: Performed By: #### C MREP #### [facility] [address] [place] [address] Dr. Erasmo Smith Anion gap [Moles/Vol] 12.5 mmol/L Normal [facility] Comment on above: Performed By: #### C MREP #### [facility] [facility] [address] [place] [address] Dr. Erasmo Smith AST [Catalytic activity/Vol] 36 U/L Normal 15-37 [facility] Comment on above: Performed By: #### C MREP #### [facility] [address] [place] [address] Dr. Erasmo Smith Bilirubin [Mass/Vol] 0.3 mg/dL Normal 0.2-1.0 [facility] Comment on above: Performed By: #### C MREP #### [facility] [address] [place] [address] Dr. Erasmo Smith Calcium [Mass/Vol] 8.9 mg/dL Normal 8.5-10.1 [facility] Comment on above: Performed By: #### C MREP #### [facility] [address] [place] [address] Dr. Erasmo Smith Chloride [Moles/Vol] 106 mmol/L Normal 98-107 [facility] Comment on above: Performed By: #### C MREP #### [facility] [address] [address] [address] Erasmo Smith CO2 [Moles/Vol] 26.9 mmol/L Normal 21.0-32.0 [facility] Comment on above: Performed By: #### C MREP #### [facility] [address] [address] [address] Erasmo Smith Creatinine [Mass/Vol] 0.79 mg/dL Normal 0.55-1.02 [facility] Comment on above: Performed By: #### C MREP #### [facility] [address] [place] [address] Dr. Erasmo Smith EGFR-AF LIBYAN >60 Normal >=60 [facility] Comment on above: Performed By: #### C MREP #### [facility] [address] [place] [address] Dr. Erasmo Smith EGFR-NON AF LIBYAN >60 Normal >=60 [facility] Comment on above: Performed By: #### C MREP #### [facility] [address] [address] [address] Erasmo Smith Globulin (S) [Mass/Vol] 4.6 g/dL Normal [facility] Comment on above: Performed By: #### C MREP #### [facility] [address] [address] [address] Erasmo Smith Glucose [Mass/Vol] 102 mg/dL Normal 74-106 [facility] Comment on above: Performed By: #### C MREP #### [facility] [address] [address] [address] Erasmo Smith Potassium [Moles/Vol] 4.4 mmol/L Normal 3.5-5.1 [facility] Comment on above: Performed By: #### C MREP #### [facility] [address] [place] [address] Dr. Erasmo Smith Protein [Mass/Vol] 8.4 g/dL Critically high 6.4-8.2 T [facility] Comment on above: Performed By: #### C MREP #### [facility] [address] [address] [address] Erasmo Smith Sodium [Moles/Vol] 141 mmol/L Normal 136-145 [facility] Comment on above: Performed By: #### C MREP #### [facility] [address] [place] [address] Dr. Erasmo Smith Urea nitrogen [Mass/Vol] 28.0 mg/dL Critically high 7.0-18.0 [facility] Comment on above: Performed By: #### C MREP #### [facility] [address] [address] [address] Erasmo Smith Urea nitrogen/Creatinine [Mass ratio] 35.4 mg/mg Normal [facility] Comment on above: Performed By: #### C MREP #### [facility] [address] [place] [address] Dr. Erasmo Smith CBC AUTO DIFFon 07-12-2022 BASO # 0.1 103/ul Normal 0.0-0.1 [facility] Comment on above: Performed By: #### B SUPERINTENDENT LOCAL #### [facility] [address] [place] [address] Dr. Erasmo Smith Basophils/100 WBC (Bld) 0.5 % Normal 0.2-2.0 [facility] Comment on above: Performed By: #### B SUPERINTENDENT LOCAL #### [facility] [address] [place] [address] Dr. Erasmo Smith EO # 0.2 103/ul Normal 0.0-0.7 [facility] Comment on above: Performed By: #### B SUPERINTENDENT LOCAL #### [facility] [address] [place] [address] Dr. Erasmo Smith Eosinophils/100 WBC (Bld) 2.5 % Normal 0.9-7.0 [facility] Comment on above: Performed By: #### B SUPERINTENDENT LOCAL #### [facility] [address] [place] [address] Dr. Erasmo Smith Erythrocyte distribution width (RBC) [Ratio] 17.2 % Critically high 11.0-15.0 [facility] Comment on above: Performed By: #### B SUPERINTENDENT LOCAL #### [facility] [address] [place] [address] Dr. Erasmo Smith Hematocrit (Bld) [Volume fraction] 35.0 % Critically low 36.0-48.0 [facility] Comment on above: Performed By: #### B SUPERINTENDENT LOCAL #### [facility] [address] [place] [address] Dr. Erasmo Smith Hemoglobin (Bld) [Mass/Vol] 11.3 g/dL Critically low 12.0-16.0 [facility] Comment on above: Performed By: #### B SUPERINTENDENT LOCAL #### [facility] [address] [place] [address] Dr. Erasmo Smith IG # 0.02 10e3/ul Normal 0.00-0.03 [facility] Comment on above: Performed By: #### B SUPERINTENDENT LOCAL #### [facility] [address] [place] [address] Dr. Erasmo Smith IG % 0.2 % Normal 0.0-0.5 [facility] Comment on above: Performed By: #### B SUPERINTENDENT LOCAL #### [facility] [address] [place] [address] Dr. Erasmo Smith LYMPH # 2.3 103/ul Normal 1.2-3.8 [facility] Comment on above: Performed By: #### B SUPERINTENDENT LOCAL #### [facility] [address] [place] [address] Dr. Erasmo Smith Lymphocytes/100 WBC (Bld) 25.4 % Normal 20.5-60.0 [facility] Comment on above: Performed By: #### B SUPERINTENDENT LOCAL #### [facility] [address] [place] [address] Dr. Erasmo Smith MANUAL DIFF REQ NO Normal [facility] Comment on above: Performed By: #### B SUPERINTENDENT LOCAL #### [facility] [address] [place] [address] Dr. Erasmo Smith MCH (RBC) [Entitic mass] 25.5 pg Critically low 26.7-34.0 [facility] Comment on above: Performed By: #### B SUPERINTENDENT LOCAL #### [facility] [address] [address] [address] Erasmo Smith MCHC (RBC) [Mass/Vol] 32.3 g/dL Normal 29.9-35.2 [facility] Comment on above: Performed By: #### B SUPERINTENDENT LOCAL #### [facility] [address] [place] [address] Dr. Erasmo Smith MCV (RBC) [Entitic vol] 78.8 fL Critically low 81.0-99.0 [facility] Comment on above: Performed By: #### B SUPERINTENDENT LOCAL #### [facility] [address] [place] [address] Dr. Erasmo Smith MONO # 0.7 103/ul Normal 0.3-0.8 [facility] Comment on above: Performed By: #### B SUPERINTENDENT LOCAL #### [facility] [address] [place] [address] Dr. Erasmo Smith Monocytes/100 WBC (Bld) 7.5 % Normal 1.7-12.0 [facility] Comment on above: Performed By: #### B SUPERINTENDENT LOCAL #### [facility] [address] [place] [address] Dr. Erasmo Smith NEUT # 5.9 103/ul Normal 1.4-6.5 [facility] Comment on above: Performed By: #### B SUPERINTENDENT LOCAL #### [facility] [address] [place] [address] Dr. Erasmo Smith Neutrophils/100 WBC (Bld) 63.9 % Normal 43.0-75.0 [facility] Comment on above: Performed By: #### B SUPERINTENDENT LOCAL #### [facility] [address] [place] [address] Dr. Erasmo Smith Platelet mean volume (Bld) [Entitic vol] 9.0 fL Critically low 9.5-13.5 [facility] Comment on above: Performed By: #### B SUPERINTENDENT LOCAL #### [facility] [address] [place] [address] Dr. Erasmo Smith PLT 305 103/ul Normal 150-450 [facility] Comment on above: Performed By: #### B SUPERINTENDENT LOCAL #### [facility] [address] [place], [place] [address] Dr. Erasmo Smith RBC 4.44 106/ul Normal 4.20-5.40 [facility] Comment on above: Performed By: #### B SUPERINTENDENT LOCAL #### [facility] [address] [place], [place] [address] Dr. Erasmo Smith WBC 9.2 103/ul Normal 4.0-11.0 [facility] Comment on above: Performed By: #### B SUPERINTENDENT LOCAL #### [facility] [address] [place], [place] [address] CHEST WO CONon [...] PAULA BROWN Date: 2022-05-27 15:27 Normal [facility] HEMOGLOBINon 04-20-2022 Hemoglobin (Bld) [Mass/Vol] 10.6 g/dL Critically low 12.0-16.0 [facility] Comment on above: Performed By: #### H GB ####[facility] [address] [place], [place] [address]ImDr. Erasmo Smith CULTURE SPUTUMon 04-02-2022 CULTURE SPUTUM Isolate 1 Pseudomonas aeruginosa Light growth of ORGANISM 1 Pseudomonas aeruginosa ANTIBIOTIC M.I.C RX STATUS Piperacillin/Tazobac saez 8 S F Ceftazidime 2 S F Imipenem 1 S F Amikacin <=2 S F Gentamicin <=1 S F Tobramycin <=1 S F Ciprofloxacin <=0.25 S F Levofloxacin 0.25 S F Normal [facility] Comment on above: Performed By: #### S PUTCX ####[facility] [address] [address]Dr. Erasmo Smith CYTOLOGYon 03-30-2022 SENT TO REF LAB 03/31/22 Normal [facility] Comment on above: Performed By: #### C YTO #### [facility] [address] [place] [address] Dr. Erasmo Smith SPUTUM GRAM STAINon 03-30-20 COMMENTS Normal [facility] Comment on above: Performed By: #### B SUPERINTENDENT LOCAL #### [facility] [address] [place] [address] Dr. Erasmo Smith DIPHTHEROIDS [facility] Comment on above: Performed By: #### B SUPERINTENDENT LOCAL #### [facility] [address] [address] [address] Erasmo Smith EPITHELIALS <25 [facility] Comment on above: Performed By: #### B SUPERINTENDENT LOCAL #### [facility] [address] [place] [address] Dr. Erasmo Smith FUNGAL ELEMENTS Normal [facility] Comment on above: Performed By: #### B SUPERINTENDENT LOCAL #### [facility] [address] [place] [address] Dr. Erasmo CINTRON NEG BACILLI FEW [facility] Comment on above: Performed By: #### B SUPERINTENDENT LOCAL #### [facility] [address] [place] [address] Dr. Erasmo CINTRON NEG DIPPLOCOCCI [facility] Comment on above: Performed By: #### B SUPERINTENDENT LOCAL #### [facility] [address] [place] [address] Dr. Erasmo CINTRON POS BACILLI [facility] Comment on above: Performed By: #### B SUPERINTENDENT LOCAL #### [facility] [address] [address] [address] Erasmo Smith GRAM POSITIVE COCCI MANY Normal [facility] Comment on above: Performed By: #### B SUPERINTENDENT LOCAL #### [facility] [address] [address] [address] Erasmo Smith WBC (Bld) [#/Vol] 10*3/uL Normal [facility] Comment on above: Performed By: #### B SUPERINTENDENT LOCAL #### [facility] [address] [address] [address] Erasmo Smith SPUTUM CULTUREon 03-01-2022 Epithelial cells LM Ql (Urine sed) Few Normal [facility] Comment on above: Performed By: #### C XSPTUM ####[facility] [address] [place], [place] [address]DrMeena Smith Gram Stain Evaluation Comment Normal [facility] Comment on above: Result Comment: This specimen is of good quality and is acceptable for routine bacterial culture. Performed By: #### C XSPTUM ####[facility] [address] [place], [place] [address]Dr. Erasmo Smith Lower Respiratory Culture Final report [facility] Comment on above: Performed By: #### C XSPTUM ####[facility] [address] [place], [place] [address]Dr. Erasmo Smith Result 1 Comment Normal [facility] Comment on above: Result Comment: Few gram positive cocci Performed By: #### C XSPTUM ####[facility] [address] [address]Dr. Erasmo Smith Result Comment: Rout ine respiratory adria Result 2 Normal [facility] Comment on above: Performed By: #### C XSPTUM ####[facility] [address] [place], [place] [address]Dr. Erasmo Smith Result 3 Normal [facility] Comment on above: Performed By: #### C XSPTUM ####[facility] [address] [place], [place] [address]Dr. Erasmo Smith Result 4 Normal [facility] Comment on above: Performed By: #### C XSPTUM ####[facility] [address] [id number][address] Erasmo Smith White Blood Cells Few Normal [facility] Comment on above: Performed By: #### C XSPTUM ####[facility] [address] [place], [place] [address]BgDr. Erasmo Smith BNPon 02-24-2022 Natriuretic peptide B (Bld) [Mass/Vol] 319.0 pg/mL Normal <=900.0 [facility] Comment on above: Performed By: #### B SUPERINTENDENT LOCAL #### [facility] [address] [place] [address] Dr. Erasmo Smith CBC AUTO DIFFon 02-24-2022 BASO # 0.1 103/ul Normal 0.0-0.1 [facility] Comment on above: Performed By: #### C MREP #### [facility] [address] [place] [address] Dr. Erasmo Smith Basophils/100 WBC (Bld) 0.5 % Normal 0.2-2.0 [facility] Comment on above: Performed By: #### C MREP #### [facility] [address] [place] [address] Dr. Erasmo Smith EO # 0.3 103/ul Normal 0.0-0.7 [facility] Comment on above: Performed By: #### C MREP #### [facility] [address] [place] [address] Dr. Erasmo Smith Eosinophils/100 WBC (Bld) 3.1 % Normal 0.9-7.0 [facility] Comment on above: Performed By: #### C MREP #### [facility] [address] [place] [address] Dr. Erasmo Smith Erythrocyte distribution width (RBC) [Ratio] 15.1 % Critically high 11.0-15.0 [facility] Comment on above: Performed By: #### C MREP #### [facility] [address] [place] [address] Dr. Erasmo Smith Hematocrit (Bld) [Volume fraction] 33.9 % Critically low 36.0-48.0 [facility] Comment on above: Performed By: #### C MREP #### [facility] [address] [place] [address] Dr. Erasmo Smith Hemoglobin (Bld) [Mass/Vol] 10.7 g/dL Critically low 12.0-16.0 [facility] Comment on above: Performed By: #### C MREP #### [facility] [address] [place] [address] Dr. Erasmo Smith IG # 0.03 10e3/ul Normal 0.00-0.03 [facility] Comment on above: Performed By: #### C MREP #### [facility] [address] [place] [address] Dr. Erasmo Smith IG % 0.3 % Normal 0.0-0.5 [facility] Comment on above: Performed By: #### C MREP #### [facility] [address] [place] [address] Dr. Erasmo Smith LYMPH # 2.8 103/ul Normal 1.2-3.8 [facility] Comment on above: Performed By: #### C MREP #### [facility] [address] [place] [address] Dr. Erasmo Smith Lymphocytes/100 WBC (Bld) 30.6 % Normal 20.5-60.0 [facility] Comment on above: Performed By: #### C MREP #### [facility] [address] [place] [address] Dr. Erasmo Smith MANUAL DIFF REQ NO Normal [facility] Comment on above: Performed By: #### C MREP #### [facility] [address] [place] [address] Dr. Erasmo Smith MCH (RBC) [Entitic mass] 26.9 pg Normal 26.7-34.0 [facility] Comment on above: Performed By: #### C MREP #### [facility] [address] [place] [address] Dr. Erasmo Smith MCHC (RBC) [Mass/Vol] 31.6 g/dL Normal 29.9-35.2 [facility] Comment on above: Performed By: #### C MREP #### [facility] [address] [place] [address] Dr. Erasmo Smith MCV (RBC) [Entitic vol] 85.2 fL Normal 81.0-99.0 [facility] Comment on above: Performed By: #### C MREP #### [facility] [address] [place] [address] Dr. Erasmo Smith MONO # 0.7 103/ul Normal 0.3-0.8 [facility] Comment on above: Performed By: #### C MREP #### [facility] [address] [place] [address] Dr. Erasmo Smith Monocytes/100 WBC (Bld) 7.9 % Normal 1.7-12.0 [facility] Comment on above: Performed By: #### C MREP #### [facility] [address] [place] [address] Dr. Erasmo Smith NEUT # 5.3 103/ul Normal 1.4-6.5 [facility] Comment on above: Performed By: #### C MREP #### [facility] [address] [place] [address] Dr. Erasmo Smith Neutrophils/100 WBC (Bld) 57.6 % Normal 43.0-75.0 [facility] Comment on above: Performed By: #### C MREP #### [facility] [address] [place] [address] Dr. Erasmo Smith Platelet mean volume (Bld) [Entitic vol] 9.0 fL Critically low 9.5-13.5 [facility] Comment on above: Performed By: #### C MREP #### [facility] [address] [place] [address] Dr. Erasmo Smith PLT 249 103/ul Normal 150-450 [facility] Comment on above: Performed By: #### C MREP #### [facility] [address] [place] [address] Dr. Erasmo Smith RBC 3.98 106/ul Critically low 4.20-5.40 [facility] Comment on above: Performed By: #### C MREP #### [facility] [address] [address] [address] Erasmo Smith WBC 9.1 103/ul Normal 4.0-11.0 [facility] Comment on above: Performed By: #### C MREP #### [facility] [address] [address] [address] Erasmo Smith CTA CHEST WO W [...] by: PAULA BROWN Date: 2022-02-24 18:24 Normal [facility] D-DIMERon 02-24-2022 D-DIMER 1.36 mg/L FEU Critically high <=0.59 [facility] Comment on above: Performed By: #### D DIM #### [facility] [address] [address] [address] Erasmo Smith D-DIMER COMMENTS SEE BELOW Normal [facility] Comment on above: Result Comment: Incr [...] By: #### D DIM #### [facility] [address] [place] [address] Dr. Erasmo Smith PROF 14(COMP METB)on 022 Albumin [Mass/Vol] 3.6 g/dL Normal 3.4-5.0 [facility] Comment on above: Performed By: #### C MREP #### [facility] [address] [place] [address] Dr. Erasmo Smith Albumin/Globulin [Mass ratio] 0.8 {ratio} Normal [facility] Comment on above: Performed By: #### C MREP #### [facility] [address] [place] [address] Dr. Erasmo Smith ALP [Catalytic activity/Vol] 95 U/L Normal 46-116 [facility] Comment on above: Performed By: #### C MREP #### [facility] [address] [place] [address] Dr. Erasmo Smith ALT [Catalytic activity/Vol] 45 U/L Normal 14-59 [facility] Comment on above: Performed By: #### C MREP #### [facility] [address] [place] [address] Dr. Erasmo Smith Anion gap [Moles/Vol] 15.9 mmol/L Normal Th [facility] Comment on above: Performed By: #### C MREP #### [facility] [address] [place] [address] Dr. Erasmo Smith AST [Catalytic activity/Vol] 33 U/L Normal 15-37 [facility] Comment on above: Performed By: #### C MREP #### [facility] [address] [address] [address] Erasmo Smith Bilirubin [Mass/Vol] 0.5 mg/dL Normal 0.2-1.0 [facility] Comment on above: Performed By: #### C MREP #### [facility] [address] [address] [address] Erasmo Smith Calcium [Mass/Vol] 9.1 mg/dL Normal 8.5-10.1 [facility] Comment on above: Performed By: #### C MREP #### [facility] [address] [address] [address] Erasmo Smith Chloride [Moles/Vol] 103 mmol/L Normal 98-107 [facility] Comment on above: Performed By: #### C MREP #### [facility] [address] [place] [address] Dr. Erasmo Smith CO2 [Moles/Vol] 25.1 mmol/L Normal 21.0-32.0 [facility] Comment on above: Performed By: #### C MREP #### [facility] [address] [place] [address] Dr. Erasmo Smith Creatinine [Mass/Vol] 0.77 mg/dL Normal 0.55-1.02 [facility] Comment on above: Performed By: #### C MREP #### [facility] [address] [address] [address] Erasmo Smith EGFR-AF LIBYAN >60 Normal >=60 [facility] Comment on above: Performed By: #### C MREP #### [facility] [address] [place] [address] Dr. Erasmo Smtih EGFR-NON AF LIBYAN >60 Normal >=60 [facility] Comment on above: Performed By: #### C MREP #### [facility] [address] [place] [address] Dr. Erasmo Smith Globulin (S) [Mass/Vol] 4.3 g/dL Normal [facility] Comment on above: Performed By: #### C MREP #### [facility] [address] [address] [address] Erasmo Smith Glucose [Mass/Vol] 92 mg/dL Normal 74-106 [facility] Comment on above: Performed By: #### C MREP #### [facility] [address] [address] [address] Erasmo Smith Potassium [Moles/Vol] 4.0 mmol/L Normal 3.5-5.1 [facility] Comment on above: Performed By: #### C MREP #### [facility] [address] [address] [address] Erasmo Smith Protein [Mass/Vol] 7.9 g/dL Normal 6.4-8.2 [facility] Comment on above: Performed By: #### C MREP #### [facility] [address] [address] [address] Erasmo Smith Sodium [Moles/Vol] 140 mmol/L Normal 136-145 [facility] Comment on above: Performed By: #### C MREP #### [facility] [address] [address] [address] Erasmo Smith Urea nitrogen [Mass/Vol] 17.0 mg/dL Normal 7.0-18.0 [facility] Comment on above: Performed By: #### C MREP #### [facility] [address] [address] [address] Erasmo Smith Urea nitrogen/Creatinine [Mass ratio] 22.1 mg/mg Normal [facility] Comment on above: Performed By: #### C MREP #### [facility] [address] [address] [address] Erasmo Smith PROTIMEon 02-24-2022 INR Coag (PPP) [Relative time] 2.28 {INR} Normal [facility] Comment on above: Performed By: #### P T, PTT ####[facility] [address] [address]Dr. Erasmo Smith INR GUIDELINES SEE BELOW Normal [facility] Comment on above: Result Comment: ABNER RED INR: 2.0 - 3.0 CONDITIONS NOT LISTED BELOW 2.5 - 3.5 FOR PROSTHETIC HEART VALVE REPLACEMENT 2.5 - 3.5 RECURRENT THROMBOSIS Performed By: #### P T, PTT ####[facility] [address] [place], [place] [address]RwDr. Erasmo Smith PT Coag (PPP) [Time] 23.3 s Critically high 9.0-11.6 [facility] Comment on above: Performed By: #### P T, PTT ####[facility] [address] [place], [place] [address]PlDr. Erasmo Smith PTTon 02-24-2022 aPTT Coag (Bld) [Time] 34.7 s Normal 22.3-36.[address] [facility] Comment on above: Performed By: #### P T, PTT ####[facility] [address] [place], [place] [address]PtMeena Smith TROPONIN, HIGH SENSITIVITYon 02-24-2022 HSTROP 6.6 pg/mL Normal 4.0-51.3 [facility] Comment on above: Result Comment: CUT- OFF POINTS HAVE BEEN ESTABLISHED BASED ON THE FOURTH UNIVERSAL DEFINITIONS OF MYOCARDIAL INFARCTION. THE UPPER REFERENCE LIMIT (URL) OF TROPONIN, DEFINED THE 99TH PERCENTILE OF cTnI DISTRIBUTION IN A REFERENCE POPULATION, HAS BEEN CONFIRMED THE DECISION THRESHOLD FOR [place] DIAGNOSIS. Performed By: #### C MREP #### [facility] [address] [place], [place] [address] Dr. Erasmo Smith PROTHROMBIN TIMEon INR Coag (PPP) [Relative time] 1.2 {INR} High 0.86-1.16 [facility] Comment on above: Result Comment: INR Theraputic Range: 2.0-3.5 Performed at [facility] [address] [facility] [address] PT Coag (PPP) [Time] 12.7 s Normal 9.3-12.7 [facility] ANTICOAGULANT COUMADIN Normal [facility] Vital Signs Date Time Vital Sign Value Performing Clinician Sophie echols 08-16-2024 10:33-0500 Body height 149.9 cm Renny Hansen MD Work Phone: [facility] 08-16-2024 10:33-0500 Body mass index (BMI) [Ratio] 44.23 kg/m2 Renny Hansen MD Work Phone: [facility] 08-16-2024 10:33-0500 Body weight 99.34 kg Renny Hansen MD Work Phone: [facility] 08-16-2024 10:33-0500 Diastolic blood pressure 80 mm[Hg] Renny Hansen MD Work Phone: [facility] 08-16-2024 10:33-0500 Heart rate 66 /min Renny Hansen MD Work Phone: [facility] 08-16-2024 10:33-0500 SaO2% (BldA) [Mass fraction] 95 % Renny Hansen MD Work Phone: [facility] 08-16-2024 10:33-0500 Systolic blood pressure 132 mm[Hg] Renny Hansen MD Work Phone: [facility] 08-02-2024 10:51-0500 Body height 149.9 cm Renny Hansen MD Work Phone: [facility] 08-02-2024 10:51-0500 Body mass index (BMI) [Ratio] 44.84 kg/m2 Renny Hansen MD Work Phone: [facility] 08-02-2024 10:51-0500 Body temperature 98.4 [degF] Renny Hansen MD Work Phone: [facility] 08-02-2024 10:51-0500 Body weight 100.7 kg Renny Hansen MD Work Phone: [facility] 08-02-2024 10:51-0500 Diastolic blood pressure 72 mm[Hg] Renny Hansen MD Work Phone: [facility] 08-02-2024 10:51-0500 Heart rate 60 /min Renny Hansen MD Work Phone: [facility] 08-02-2024 10:51-0500 SaO2% (BldA) [Mass fraction] 95 % Renny Hansen MD Work Phone: [facility] 11-21-2024 10:51-0500 Systolic blood pressure 134 mm[Hg] Renny Hansen MD Work Phone: [facility] 07-24-2024 10:48-0500 Body height 149.9 cm Eleanor Hemmer PA Work Phone: [facility] 07-24-2024 10:48-0500 Body mass index (BMI) [Ratio] 45.85 kg/m2 Eleanor Hemmer PA Work Phone: [facility] 07-24-2024 10:48-0500 Body weight 102.97 kg Eleanor Hemmer PA Work Phone: [facility] 07-24-2024 10:48-0500 Diastolic blood pressure 68 mm[Hg] Eleanor Hemmer PA Work Phone: [facility] 07-24-2024 10:48-0500 Heart rate 60 /min Eleanor Hemmer PA Work Phone: [facility] 07-24-2024 10:48-0500 SaO2% (BldA) [Mass fraction] 96 % Eleanor Hemmer PA Work Phone: [facility] 07-24-2024 10:48-0500 Systolic blood pressure 124 mm[Hg] Eleanor Hemmer PA Work Phone: [facility] 07-05-2024 08:50-0400 Body height 149.9 cm Renny Hansen MD Work Phone: [facility] 07-05-2024 08:50-0400 Body mass index (BMI) [Ratio] 46.66 kg/m2 Renny Hansen MD Work Phone: [facility] 07-05-2024 08:50-0400 Body weight 104.78 kg Renny Hansen MD Work Phone: [facility] 07-05-2024 08:50-0400 Diastolic blood pressure 74 mm[Hg] Renny Hansen MD Work Phone: [facility] 07-05-2024 08:50-0400 Heart rate 69 /min Renny Hansen MD Work Phone: [facility] 07-05-2024 08:50-0400 SaO2% (BldA) [Mass fraction] 96 % Renny Hansen MD Work Phone: [facility] 07-05-2024 08:50-0400 Systolic blood pressure 130 mm[Hg] Renny Hansen MD Work Phone: [facility] 05-31-2024 13:46-0400 Body height 149.9 cm Monster Calvillo SUPERINTENDENT LOCAL Work Phone: [facility] 05-31-2024 13:46-0400 Body mass index (BMI) [Ratio] 47.87 kg/m2 Monster Calvillo SUPERINTENDENT LOCAL Work Phone: [facility] 05-31-2024 13:46-0400 Body temperature 98.4 [degF] Monster Calvillo SUPERINTENDENT LOCAL Work Phone: [facility] 05-31-2024 13:46-0400 Body weight 107.5 kg Monster Calvillo SUPERINTENDENT LOCAL Work Phone: [facility] 05-31-2024 13:46-0400 Diastolic blood pressure 80 mm[Hg] Monster Calvillo SUPERINTENDENT LOCAL Work Phone: [facility] 05-31-2024 13:46-0400 Heart rate 73 /min Monster Calvillo SUPERINTENDENT LOCAL Work Phone: [facility] 05-31-2024 13:46-0400 SaO2% (BldA) [Mass fraction] 95 % Monster Calvillo SUPERINTENDENT LOCAL Work Phone: [facility] 05-31-2024 13:46-0400 Systolic blood pressure 140 mm[Hg] Monster Calvillo SUPERINTENDENT LOCAL Work Phone: [facility] 05-22-2024 13:17-0400 Body height 149.9 cm Boo Buchanan PA-C Work Phone: [facility] 05-22-2024 13:17-0400 Body mass index (BMI) [Ratio] 44.43 kg/m2 Boo SANTOS-C Work Phone: [facility] 05-22-2024 13:17-0400 Body weight 99.79 kg Boo Buchanan PA-C Work Phone: [facility] 03-02-2024 11:51-0400 Blood Pressure Location Ortega NILL [facility] 03-02-2024 11:51-0400 Diastolic blood pressure 75 mm[Hg] Ortega NILL [facility] 03-02-2024 11:51-0400 Heart rate 71 /min Ortega NILL [facility] 03-02-2024 11:51-0400 Respiratory rate 16 /min Ortega NILL [facility] 03-02-2024 11:51-0400 Systolic blood pressure 118 mm[Hg] Ortega NILL [facility] 10-07-2021 16:00-0500 Body height 146.69 cm Hong Nevarez Other [facility] [employer] Other 10-07-2021 16:00-0500 Body mass index (BMI) [Ratio] 51.01 kg/m2 Hong Nevarez Other [employer] Other 10-07-2021 16:00-0500 Body weight 109.77 kg Hong Nevarez Other [employer] Other 08-26-2021 15:15-0500 Body height 146.69 cm Hong Nevarez Other [employer] Other 08-26-2021 15:15-0500 Body mass index (BMI) [Ratio] 51.07 kg/m2 Hong Nevarez Other [employer] Other 08-26-2021 15:15050 Body weight 109.91 kg Hong Nevarez Other [employer] Other Encounters Encounter Date Encounter Type Care Provider Facility Start: 09-03-2024 ambulatory Katharina Toledo Facility:[facility] Start: 08-24-2024 End: 08-24-2024 ambulatory Pedro Pablo Cruz Facility:[facility] Start: 08-24-2024 End: 08-24-2024 External Result Encounter Katharina Jaegercaesarsebas SUPERINTENDENT LOCAL Work Phone: [facility] Unsolicited Start: 08-24-2024 End: 08-24-2024 External Result Encounter Katharina Toledo SUPERINTENDENT LOCAL Work Phone: [facility] Unsolicited Start: 08-20-2024 End: 08-20-2024 ambulatory Miguel Murphy MD Facility:[facility] Start: 08-16-2024 End: 08-16-2024 Bamboo flowsheet Renny Hansen MD Work Phone: [facility] Start: 08-16-2024 End: 08-16-2024 Bamboo flowsheet Renny Hansen MD Work Phone: [facility] Start: 08-16-2024 End: 08-16-2024 Office outpatient visit 25 minutes Renny Hansen MD Work Phone: [facility] Comment on above: 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); Persistent atrial fibrillation (HCC) (CMS/HCC); Gastroesophageal reflux disease without esophagitis; Acute non-recurrent sinusitis, unspecified location; Nausea Start: 08-02-2024 End: 08-02-2024 Bamboo flowsheet Renny Hansen MD Work Phone: [facility] Start: 08-02-2024 End: 08-02-2024 Bamboo flowsdemond Hansen MD Work Phone: [facility] Start: 08-02-2024 End: 08-02-2024 Office outpatient visit 25 minutes Renny Hansen MD Work Phone: [facility] Comment on above: 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); Persistent atrial fibrillation (HCC) (CMS/HCC); Nausea Start: 08-02-2024 End: 08-02-2024 ambulatory RENNY HANSEN Not Available Start: 07-25-2024 End: 07-25-2024 Telephone encounter Eleanor Leahy PA Work Phone: [facility] Start: 07-24-2024 End: 07-24-2024 Bamboo flowsheet Eleanor Leahy PA Work Phone: [facility] Start: 07-24-2024 End: 07-24-2024 Bamboo flowsheet Eleanor Leahy PA Work Phone: [facility] Start: 07-24-2024 End: 07-24-2024 Clinisync Result Encounter Eleanor Leahy PA Work Phone: [facility] Unsolicited Start: [...] Not Available Start: 07-18-2024 End: 07-18-2024 ambulatory [facility] Start: 07-16-2024 End: 07-16-2024 Refill Monster Calvillo NP Work Phone: [facility] Comment on [...] Not Available Start: 06-19-2024 End: 06-19-2024 ambulatory [facility] Start: 06-18-2024 End: 06-18-2024 Refill Monster Calvillo SUPERINTENDENT LOCAL Work Phone: [facility] Comment on above: Acute on chronic nisa stolic (congestive) heart failure (CMS/HCC) Start: 05-31-2024 End: 05-31-2024 Bamboo flowsheet Monster Calvillo SUPERINTENDENT LOCAL Work Phone: [facility] Start: 05-31-2024 End: 05-31-2024 Bamboo flowsheet Monster Calvillo SUPERINTENDENT LOCAL Work Phone: [facility] Start: 05-31-2024 End: 05-31-2024 Office outpatient visit 15 minutes Monster Calvillo SUPERINTENDENT LOCAL Work Phone: [facility] Comment on above: Acute on chronic nisa stolic (congestive) heart failure (CMS/HCC) (Primary Dx) Start: 05-31-2024 End: 05-31-2024 ambulatory MONSTER OROSCOTRICK Not Available Start: 05-22-2024 End: 05-22-2024 ambulatory [...] Left shoulder pain, unspecified chronicity [M25.512] Start: 05-16-2024 End: 05-16-2024 Refill Ralph Burton MA [facility] Comment on above: Chronic left shoulde r pain Start: 05-09-2024 End: 05-09-2024 Clinisync Result Encounter Shaikh Cira CUBA Work Phone: [facility] Unsolicited Start: 05-09-2024 End: 05-09-2024 Clinisync Result Encounter Shaikh Cira CUBA Work Phone: [facility] Unsolicited Start: 05-09-2024 End: 05-09-2024 Office outpatient visit 25 minutes Jr. Sakina Cardenas DO Work Phone: [facility] Comment on above: Acute pain of left s houlder (Primary Dx); History of reverse total replacement of left shoulder joint Start: 05-09-2024 End: 05-09-2024 ambulatory SAKINA MARIO Not Available Start: 05-02-2024 End: 05-02-2024 Patient encounter procedure MD Shaikh Denis Work Phone: [facility] [place] Work Phone: Start: 05-02-2024 End: 05-02-2024 ambulatory MD Shaikh Denis Work Phone: [facility] Work Phone: Start: 04-16-2024 End: 04-16-2024 ambulatory PEDRO PABLO Ivan CRUZ Not Available Start: 04-16-2024 End: 04-16-2024 ambulatory Miguel Murphy MD Facility:[facility] Start: 04-11-2024 End: 04-11-2024 ambulatory SHAIKH CIRA Not Available Start: 04-10-2024 End: 04-10-2024 Patient encounter procedure MD Shaikh Denis Work Phone: [facility] [place] Work Phone: Start: 04-10-2024 End: 04-10-2024 ambulatory MD Shaikh Denis Work Phone: [facility] Work Phone: Start: 04-02-2024 End: 04-02-2024 ambulatory Miguel Murphy MD Facility:[facility] Start: 03-29-2024 End: 03-29-2024 Patient encounter procedure MD Shaikh Denis Work Phone: [facility] Start: 03-29-2024 End: 03-29-2024 ambulatory MD Shaikh Denis Work Phone: [facility] Work Phone: Start: 03-12-2024 End: 03-12-2024 ambulatory SHAIKH CIRA Not Available Start: 03-07-2024 End: 03-07-2024 ambulatory Ortega ALEXANDER Facility:CD:[id number] Start: 03-02-2024 End: 03-02-2024 ambulatory Ortega ALEXANDER Facility:[facility] [place] Start: 03-02-2024 End: 03-02-2024 Patient encounter procedure Ortega ALEXANDER [facility] [place] Start: 03-01-2024 ambulatory Ortega ALEXANDER Facility:[facility] Start: 02-27-2024 End: 02-27-2024 ambulatory SHAIKH CIRA Not Available Start: 01-17-2024 End: 01-17-2024 ambulatory NICANOR [facility] Start: 12-29-2023 End: 12-29-2023 ambulatory SHAIKH CIRA Not Available Start: 12-27-2023 End: 12-27-2023 ambulatory YANCY [facility] Start: 12-26-2023 End: 12-26-2023 ambulatory [facility] MD [facility] Start: 12-05-2023 End: 12-05-2023 ambulatory Miguel Murphy MD Facility: [facility] Start: 11-16-2023 End: 11-16-2023 ambulatory Shaikh Cira Facility:[facility] Start: 11-07-2023 End: 11-07-2023 ambulatory SHAIKH CIRA Not Available Start: 10-17-2023 Cristobal Denis MD Work Phone: [facility] Start: 10-17-2023 Cristobal Denis MD Work Phone: [facility] Start: 10-17-2023 End: 10-17-2023 ambulatory SHAIKH CIRA Not Available Start: 10-11-2023 End: 10-11-2023 ambulatory MD Shaikh Denis Work Phone: [facility] Work Phone: Start: 10-11-2023 End: 10-11-2023 Patient encounter procedure MD Shaikh Denis Work Phone: [facility] [place] Work Phone: Start: 09-08-2023 End: 09-08-2023 Patient encounter procedure MD Shaikh Denis Work Phone: [facility] Start: 09-08-2023 End: 09-08-2023 ambulatory MD Shaikh Denis Work Phone: [facility] Work Phone: Start: 09-06-2023 End: 09-06-2023 ambulatory SHAIKH CIRA Not Available Start: 09-06-2023 Patient encounter procedure Shaikh Cira CUBA Work Phone: [facility] Start: 01-31-2023 End: 02-01-2023 ambulatory ANDRIUS GIEDRAITIS [...] Start: 06-13-2022 End: 07-12-2022 ambulatory SAHU H FASILVANA Facility:[facility] Start: 05-27-2022 End: 05-28-2022 ambulatory LUIZ [...] 10-07-2021 End: 10-07-2021 ambulatory Hong Nevarez Other [employer] Other Start: 10-07-2021 Office outpatient visit 15 minutes Hong Nevarez [facility] Start: 08-26-2021 End: 08-26-2021 ambulatory Hong Nevarez Other [employer] Other Start: 08-26-2021 Office outpatient ne w 45 minutes Hong Nevarez [facility] Start: 10-11-2020 End: 10-13-2020 Evaluation and management of inpatient ZANE MAYNOR Facility:[facility] Procedures Date Procedure Procedure Detail Performing Clinician Start: 08-24-2024 Complete blood count with white cell differential, automated Katharina Toledo SUPERINTENDENT LOCAL Work Phone: Start: 07-24-2024 ALL CBC WITH AUTO DIFF Eleanor SANTOS Work Phone: Start: 07-24-2024 [employer] Filippo Leahy PA Work Phone: Start: 07-24-2024 Transferrin [Mass/vo lume] in Serum or Plasma Eleanor SANTOS Work Phone: Start: 05-22-2024 Radex shoulder compl ete minimum 2 views Boo SANTOS-C Work Phone: Start: 05-09-2024 ALL CBC WITH AUTO DIFF Shaikh Cira CUBA Work Phone: Start: 05-02-2024 Radionuclide three-p hase [...] 10 years Ligation of fallopian tube M ichroxanne PARKWickr Repair of musculoten dinous cuff of shoulder Ortega NILWickr Comment on above: right Total abdominal hyst erectomy with bilateral salpingo-oophorectomy Ortega PARKWickr Plan of Treatment Date Care Activity Detail Author Start: 09-12-2027 Screening for malign ant neoplasm of colon [facility] Start: 10-17-2024 End: 10-17-2024 Patient encounter procedure 10/17/2024 11:30 AM EST Office Visit [facility] [address] [place] [address] Renny Hansen MD [address] [place] [address] [facility] Start: 09-14-2024 End: 09-14-2024 Patient encounter procedure 09/14/2024 10:00 AM EST Office Visit [facility] [address] [place] [address] Renny Hansen MD [address] [place] [address] [facility] Start: 09-06-2024 Medicare Annual Well ness (AWV) Medicare Annual Wellness (AWV) [facility] Start: 08-23-2024 End: 08-23-2024 Patient encounter procedure 08/23/2024 11:45 AM EST Office Visit [facility] [address] [place] [address] Renny Hansen MD [address] [place] [address] [facility] Start: 08-16-2024 End: 08-16-2024 Patient encounter procedure 08/16/2024 10:30 AM EST Office Visit [facility] [address] [place] [address] Renny Hansen MD [address] [place] [address] [facility] Start: 08-02-2024 End: 08-02-2025 [...] Expected: 07/24/2024 (Approximate), Expires: 07/24/2025 [facility] Comment on above: Expected: 07/24/2024 (Approximate), Expires: 07/24/2025 Start: 07-19-2024 End: 07-19-2024 Patient encounter procedure 07/19/2024 12:00 PM EST Procedure Visit [facility] [address] [place] [address] [facility] Start: 07-05-2024 End: 07-05-2025 EMG AND NERVE CONDUCTION STUDY EMG AND NERVE CONDUCTION STUDY Neurology Routine Neck pain on left side Radicular pain in left arm Expected: 07/05/2024 (Approximate), Expires: 07/05/2025 [facility] Comment on above: Expected: 07/05/2024 (Approximate), Expires: 07/05/2025 Start: 07-05-2024 End: 09-04-2025 MG Breast - bilateral Screening Bilateral screening mammogram Imaging Routine Breast screening Expected: 07/05/2024 (Approximate), Expires: 09/04/2025 [facility] Healthcare Work Phone: Comment on above: Expected: 07/05/2024 (Approximate), Expires: 09/04/2025 Start: 07-05-2024 End: 07-05-2024 Patient encounter procedure [facility] Comment on above: Arrived Start: 05-31-2024 End: 05-31-2024 Patient encounter procedure 05/31/2024 1:30 PM EDT Office Visit [facility] [address] [place] [address] Monster Calvillo NP [address] [place] [address] Arrived [facility] Comment on above: Arrived Start: 05-22-2024 End: 08-21-2024 C reactive protein [Mass/volume] in Serum or Plasma C-REACTIVE PROTEIN Lab Routine 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) Expected: 05/22/2024, Expires: 08/21/2024 [facility] Comment on above: Expected: 05/22/2024 , Expires: 08/21/2024 Start: 05-22-2024 End: 08-21-2024 CBC W Auto Differential panel - Blood COMPLETE BLOOD COUNT AND DIFFERENTIAL Lab Routine 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) Expected: 05/22/2024, Expires: 08/21/2024 [facility] Comment on above: Expected: 05/22/2024 , Expires: 08/21/2024 Start: 05-22-2024 End: 08-21-2024 Erythrocyte sedimentation rate SEDIMENTATION RATE, WESTERGREN Lab Routine 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) Expected: 05/22/2024, Expires: 08/21/2024 [facility] Comment on above: Expected: 05/22/2024 , Expires: 08/21/2024 Start: 05-22-2024 End: 05-22-2024 Patient encounter procedure 05/22/2024 2:00 PM EDT Office Visit [facility] [address] [place] [phone] Monster Calvillo NP [address] [place] [phone] [facility] Start: 05-13-2024 Covid-19 Vaccine ( season) Covid-19 Vaccine ( season) [facility] Start: 05-13-2024 Influenza vaccination Influenza Vacc ine (#1) [facility] Start: 05-09-2024 End: 05-09-2024 Patient encounter procedure 05/09/2024 10:00 AM EDT Office Visit [facility] [address] [place] [address] Jr. Sakina Cardenas, DO [address] [facility] [address] [place] [address] [facility] Start: 11-07-2023 End: 11-07-2023 Patient encounter procedure 11/07/2023 2:30 PM EST Office Visit [facility] [address] [place] [phone] Shaikh Denis MD [address] [place] [id number] [facility] Start: 10-17-2023 End: 10-17-2023 Patient encounter procedure 10/17/2023 10:15 AM EST Office Visit [facility] [address] [place] [phone] Shaikh Denis MD [address] [place] [phone] Arrived [facility] Comment on above: Arrived Start: 09-12-2023 Advance Directive Discussion Advance Directive Discussion [facility] Start: 11-30-2012 Screening for osteoporosis Bone Dens ity Screening [facility] Start: 11-30-1997 Shingrix Vaccine (1 of 2) Reyes grix Vaccine (1 of 2) [facility] Start: 11-30-1992 Diabetes Screening Diabetes Screenin g [facility] Start: 11-30-1966 Urine microalbumin profile DTa P,Tdap,Td Vaccine (1 - Tdap) [facility] Start: 11-30-1965 Anxiety Screening Anxiety Screening [facility] Start: 11-30-1965 Depression Screening Depression Scre ening [facility] Start: 11-30-1965 Hepatitis C screening Hepatitis C Sc reening [facility] Start: 1947 Screening for malign ant neoplasm of colon [facility] End: 06-21-2025 CT Shoulder - left WO contrast CT SHOULDER WO IVCON LEFT Radiology Routine 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) 1 Occurrences starting 05/22/2024 until 06/21/2025 [facility] Work Phone: Comment on above: 1 Occurrences starti ng 05/22/2024 until 06/21/2025 Iron and Iron bindin g capacity panel - Serum or Plasma Iron and TIBC Lab Routine 08/24/2024 2:30 PM EST [facility] Work Phone: Immunizations Immunization Date Immunization Notes Care Provider Alexandra bhatia 08-25-2023 influenza virus vacc ine, unspecified formulation Ortega ALEXANDER [facility] [place] 08-25-2023 Influenza, Seasonal, Quadrivalent, Adjuvanted Shaikh Cira CUBA Work Phone: [facility] 08-25-2023 RSV, recombinant, protein subunit RSVpreF, adjuvant reconstitu, 120mcg/0.5mL, PF (Arexvy) Shaikh Cira CUBA Work Phone: [facility] 07-08-2022 influenza virus vacc ine, unspecified formulation Ortega ALEXANDER [place] 07-08-2022 Influenza, Seasonal, Quadrivalent, Adjuvanted Shaikh Cira CUBA Work Phone: [facility] 08-20-2021 influenza virus vacc ine, unspecified formulation Ortega ALEXANDER [place] 08-20-2021 Influenza, Seasonal, Quadrivalent, Adjuvanted Shaikh Cira CUBA Work Phone: [facility] 08-20-2021 pneumococcal polysaccharide vaccine, 23 valent Ortega ALEXANDER [place] 11-18-2020 SARS-CoV-2 (COVID-19 ) mRNA-[id number] vaccine Ortega NILL [place] 10-20-2020 SARS-CoV-2 (COVID-19 ) mRNA-[id number] vaccine Ortega ALEXANDER [place] 08-04-2020 influenza virus vacc ine, unspecified formulation Ortega ALEXANDER [place] 08-04-2020 Influenza, Seasonal, Quadrivalent, Adjuvanted Shaikh Cira CUBA Work Phone: [facility] 08-04-2020 pneumococcal conjuga te vaccine, 13 valent Ortega ALEXANDER [place] 08-06-2019 influenza virus vacc ine, unspecified formulation Ortega ALEXANDER [place] 08-06-2019 influenza, high dose seasonal, preservative-free Shaikh Cira CUBA Work Phone: [facility] 07-05-2017 influenza virus vacc ine, unspecified formulation Ortega ALEXANDER [place] 07-05-2017 pneumococcal conjuga te vaccine, 13 valent Ortega ALEXANDER [place] 07-05-2017 Seasonal trivalent influenza vaccine, adjuvanted, preservative free Shaikh Cira CUBA Work Phone: [facility] 06-29-2016 influenza virus vacc ine, unspecified formulation Ortega ALEXANDER [place] 06-29-2016 Seasonal trivalent influenza vaccine, adjuvanted, preservative free Shaikh Cira CUBA Work Phone: [facility] [facility] 06-25[facility]2015 influenza virus vacc ine, unspecified formulation Ortega ALEXANDER [place] 06-25-2015 influenza, injectabl e, quadrivalent, contains preservative Shaikh Cira CUBA Work Phone: [facility] 06-12-2015 influenza virus vacc ine, unspecified formulation Ortega ALEXANDER [place] 06-12-2015 seasonal influenza, intradermal, preservative free Shaikh Cira CUBA Work Phone: [facility] 07-12-2014 influenza virus vacc ine, unspecified formulation Ortega ALEXANDER [place] 07-12-2014 influenza, injectabl e, quadrivalent, contains preservative Shaikh Cira CUBA Work Phone: [facility] 08-07-2013 influenza virus vacc ine, unspecified formulation Ortega PARKMariah [facility] [place] 08-07-2013 influenza, seasonal, injectable Shaikh Cira CUBA Work Phone: [facility] Healthcare Payers Date Payer Category Payer Medicaid AETNA MEDICARE A DVANTAGE [id number] 2023 Private Health Insurance 2023 Private Health Insurance [id number] 2023 Self-pay [id number] 2023 Managed Care HMO (unspecified) AETNA AETNA [id number] 2023-Present [address] [place] [address] HMO [id number] 2007 Medicare [id number] 1959 Medicare [id number] [address] [facility] [id number] 1947 Unknown [id number] 2.16.840.1.154135.3.579.2. 647 1947 Unknown [id number] 2.16.840.1.423192.3.579.2. 593 1947 Unknown [id number] 2.16.840.1.832992.3.579.2. 593 1947 Unknown [id number] 2.16.840.1.259296.3.579.2. 593 1947 Unknown [id number] 2.16.840.1.551520.3.579.2. 593 1947 Unknown [id number] 2.16.840.1.885360.3.579.2. 593 1947 Unknown [id number] 2.16.840.1.901995.3.579.2. 593 1947 Unknown [id number] 2.16.840.1.219546.3.579.2. 593 1947 Unknown [id number] 2.16.840.1.590103.3.579.2. 593 1947 Unknown [id number] 2.16.840.1.984227.3.579.2. 593 1947 Unknown [id number] 2.16.840.1.212914.3.579.2. 593 1947 Unknown [id number] 2.16.840.1.626415.3.579.2. 593 1947 Unknown [id number] 2.16.840.1.022323.3.579.2. 593 1947 Unknown [id number] 2.16.840.1.913202.3.579.2. 593 1947 Unknown [id number] 2.16.840.1.780307.3.579.2. 593 1947 Unknown [id number] 2.16.840.1.875804.3.579.2. 593 1947 Unknown [id number] 2.16.840.1.449937.3.579.2. 593 1947 Unknown [id number] 2.16.840.1.743699.3.579.2. 593 1947 Unknown [id number] 2.16.840.1.499519.3.579.2. 593 1947 Unknown [id number] 2.16.840.1.060476.3.579.2. 593 1947 Unknown [id number] 2.16.840.1.111322.3.579.2. 593 1947 Unknown [id number] 2.16.840.1.820331.3.579.2. 593 1947 Unknown [id number] 2.16.840.1.386986.3.579.2. 593 1947 Unknown [id number] 2.16.840.1.926484.3.579.2. 593 1947 Unknown [id number] 2.16.840.1.539614.3.579.2. 593 1947 Unknown [id number] 2.16.840.1.327920.3.579.2. 593 1947 Unknown [id number] 2.16.840.1.064173.3.579.2. 593 1947 Unknown [id number] 2.16.840.1.537345.3.579.2. 727 1947 Unknown [id number] 2.16.840.1.978314.3.579.2. 727 1947 Unknown [id number] 2.16.840.1.920405.3.579.2. 1259 1947 Unknown [id number] 2.16.840.1.968719.3.579.2. 1259 1947 Unknown [id number] 2.16.840.1.486498.3.579.2. 1259 1947 Unknown [id number] 2.16.840.1.659358.3.579.2. 1259 1947 Unknown [id number] 2.16.840.1.063776.3.579.2. 125 1947 Unknown [id number] 2.16.840.1.272151.3.579.2. 1258 1947 Unknown [id number] 2.16.840.1.466743.3.579.2. 125 1947 Unknown [id number] 2.16.840.1.680733.3.579.2. 125 1947 Unknown [id number] 2.16.840.1.425497.3.579.2. 1258 1947 Unknown [id number] 2.16.840.1.481704.3.579.2. 1258 1947 Unknown [id number] 2.16.840.1.463699.3.579.2. 1258 1947 Unknown [id number] 2.16.840.1.312994.3.579.2. 1258 1947 Unknown [id number] 2.16.840.1.152595.3.579.2. 1258 1947 Unknown [id number] 2.16.840.1.904673.3.579.2. 1258 1947 Unknown [id number] 2.16.840.1.257970.3.579.2. 1258 1947 Unknown [id number] 2.16.840.1.930052.3.579.2. 125 1947 Unknown [id number] 2.16.840.1.725940.3.579.2. 1947 Unknown [id number] 2.16.840.1.918773.3.579.2. 1947 Unknown [id number] 2.16.840.1.368422.3.579.2. 196 1947 Unknown [id number] 2.16.840.1.562716.3.579.2. 196 1947 Unknown [id number] 2.16.840.1.959074.3.579.2. 196 Medicare Medicare Outpatient [id number] 1A [id number] Unknown [place] [id number] Unknown [id number] 2.16.840.1.911704.3.579.2. 531 Unknown [id number] 2.16.840.1.570694.3.579.2. 531 Unknown [id number] 2.16.840.1.668876.3.579.2. 531 Unknown [id number] 2.16.840.1.792308.3.579.2. 531 Unknown [id number] 2.16.840.1.660893.3.579.2. 531 Unknown [id number] 2.16.840.1.251836.3.579.2. 531 Unknown [id number] 2.16.840.1.191127.3.579.2. 531 Unknown [id number] 2.16.840.1.143099.3.579.2. 531 Social History Date Type Detail Facility Start: 08-30-2023 End: 05-31-2024 Sex Assigned At [facility] Start: 1945 Sex Assigned At Female [facility] Start: 08-18-2023 End: 12-29-2023 Tobacco smoking status CAIS Ex-smoker [facility] History of tobacco use Current smoker [facility] History of tobacco use Cigarette Smoker [facility] Start: 09-02-2023 Alcohol intake Not Asked [facility] Start: 08-30-2023 End: 05-31-2024 History of Social function [facility] Within the last year , have you been afraid of your partner or ex-partner? No [facility] How often do you att end amish or jew services? Patient refused [facility] Do you belong to any clubs or organizations such as amish groups, unions, fraternal or athletic groups, or [...] smoking status NHIS Never smoked tobacco (finding) [facility] Start: 05-22-2024 Tobacco use and exposure Smokeless tobacco non-user [facility] Start: 05-22-2024 End: 05-31-2024 Alcoholic beverage intake Current drinker of alcohol (finding) [facility] History of tobacco use Passive smoker [facility] Start: 11-07-2023 Alcohol Comment OCCASSIONAL [facility] Functional Status Date Assessment Result Facility 03-02-2024 Functional Status N/A [facility] [place] Clinical Notes 08-26-2021 to 08-16-2024 Renny Hansen MD - 08/16/2024 10:30 AM Dinesh Hansen MD - 08/02/2024 11:00 AM ESTTelephone Encounter - DANIELLE Florence - 07/25/2024 1:07 PM DANIELLE Schwarz - 07/24/2024 11:00 AM EST Note Date & Type Note Facility 08-16-2024 History of Present illness Narrative Images from the original note were not included. HPI Results Additional comments: UGI results Last edited by Carlene Yan LPN on 08/16/2024 10:33 AM. Subjective Patient ID: Breann Starks is a 78 y.o. female who presents for Nausea and Results (UGI results). Nausea / Vomiting Patient complains of nausea. Started 2 months ago, gradual improvement in last couple days. Patient denies hematemesis, melena, and vomiting. Treatment to date has been zofran--seems to be helping some Pt states nausea is about 80% better Current Outpatient Medications on File Prior to [...] MOUTH EVERY DAY 90 tablet 0 HYDROcodone-acetaminophen (Hooker) 5-325 MG tablet Take 1 tablet by [...] FINGER RELEASE Left RF Visit Vitals BP 132/80 Pulse 66 Ht 4' 11 Wt 219 lb SpO2 95% BMI 44.23 kg/m Smoking Status Former BSA 2.03 m Review of Systems Objective Physical Exam [...] - Ambulatory referral to Hematology; Future - Needs IV Fe, cannot tolerate PO due to constipation and pain Persistent atrial fibrillation (HCC) (CMS/HCC) Gastroesophageal reflux disease without esophagitis - Continue PPI Acute non-recurrent sinusitis, unspecified location - amoxicillin-clavulanate (Augmentin) 875-125 MG tablet; Take 1 tablet (875 mg) by mouth in the morning and 1 tablet (875 mg) before bedtime. Do all this for 7 days. Nausea - Improved 80%. Follow up for As Previously Scheduled. documented in this encounter [facility] 08-02-2024 History of Present illness Narrative Images [...] MOUTH EVERY DAY 90 tablet 0 HYDROcodone-acetaminophen (Hooker) 5-325 MG tablet Take 1 tablet by [...] Greater than 25 minutes was spent in [id number] consultation and coordination of care. Persistent atrial fibrillation (HCC) (CMS/HCC) Nausea - FL upper GI double contrast w KUB; Future Follow up in about 2 weeks (around 08/16/2024) for Test/Lab Review. documented in this encounter [facility] 07-25-2024 Telephone encounter Note My chart message. [facility] 07-25-2024 Miscellaneous Notes My chart message. documented in this encounter [facility] 07-24-2024 History of Present illness Narrative Images [...] arm. Pt does see pain magment [place]. Sees their office next week on the [...] MOUTH EVERY DAY 90 tablet 0 HYDROcodone-acetaminophen (Hooker) 5-325 MG tablet Take 1 tablet by [...] Neck pain on left side Can continue Hooker as needed for pain. Radicular pain in [...] (CMS/HCC) The patient is seeing a medical examiner for this condition, treatment is deferred to that specialist. Correspondence from that specialist and any available testing were reviewed during today's visit. She will be having Cardiac Catheterization for further evaluation of the pulmonary hypertension. Other thrombophilia Will recheck with updated labs. Follow up in about 4 weeks (around 08/21/2024) for Next scheduled follow-up with Dr. Hansen. documented in this encounter [facility] 07-24-2024 Telephone encounter Note Will discuss with pt at today's OV [facility] 07-24-2024 Miscellaneous Notes Will discuss with pt at today's OV Call after mammogram with plan. See last OV. documented in this encounter [facility] 07-18-2024 Note [facility] - [facility] Subjective Breann Starks is a 78 y.o. year old female patient being seen for Atrial Fibrillation, PACEMAKER, Coronary Artery Disease, Hypertension, Sinus node dysfunction (HAS BOSTON PACER), Obesity, and Edema Patient Active Problem List Diagnosis Disorder of bursae of shoulder region Chronic obstructive lung disease (CMS/HCC) Atherosclerosis of [place] coronary artery of [place] heart without angina pectoris Diaphragmatic hernia [...] normal EKG Ech (more content not included)... [facility] 07-05-2024 Telephone encounter Note Call after mammogram with plan. See last OV. [facility] 07-05-2024 History of Present illness Narrative Images [...] MOUTH EVERY DAY 90 tablet 0 HYDROcodone-acetaminophen (Hooker) 5-325 MG tablet Take 1 tablet by [...] Greater than 45 minutes was spent in syoc-us-cvik consultation and coordination of care. Follow up in about 4 months (around 11/05/2024) for Call after mammogram. documented in this encounter [facility] 06-02-2024 History of Present illness Narrative Associated Problem(s): Acute on chronic diastolic (congestive) heart failure (CMS/HCC) Discussed with Dr. Hennessy's office pt symptoms and clinical condition today in office. Sent pt to ER for further workup and tx of suspected CHF exacerbation. Images from the original note were not included. Subjective Patient ID: Breann Starks is a 78 y.o. female who presents for Follow-up and Cough. HPI CHF: Last appointment [address] Hennessy Weight 232 in March here Is now 237 Has productive wet cough, significant edema noted to L side. CHRIS LLE; Did not take Lasix today- was worried about urinating too much while being out today. Has not called cardiology; Reports urine output has decreased substantially over the past few days even with the lasix and spironolactone. Discussed with Dr. Hennessy's office pt symptoms and clinical condition today in office. Sent pt to ER for further workup and tx of suspected CHF exacerbation. Review of Systems Constitutional: Positive for fatigue. Negative for activity change, appetite change, chills, diaphoresis, fever and unexpected weight change. HENT: Negative for congestion, ear pain, rhinorrhea, sinus pressure, sinus pain, sneezing, sore throat, trouble swallowing and voice change. Eyes: Negative for visual disturbance. Respiratory: Positive for cough and shortness of breath. Negative for chest tightness and wheezing. Cardiovascular: Positive for leg swelling. Negative for chest pain and palpitations. Gastrointestinal: Negative for abdominal distention, abdominal pain, blood in stool, constipation, diarrhea and vomiting. Genitourinary: Positive for decreased urine volume. Negative for dysuria, flank pain, frequency, hematuria and urgency. Musculoskeletal: Negative for arthralgias, gait problem, joint swelling and myalgias. Skin: Negative for rash. Neurological: Negative for dizziness, tremors, syncope, weakness, light-headedness and headaches. Psychiatric/Behavioral: Negative for decreased concentration and suicidal ideas. The patient is not nervous/anxious. Hematological: Does not bruise/bleed easily. Endocrine: Negative for cold intolerance, heat intolerance, polydipsia, polyphagia and polyuria. Objective Physical Exam Vitals reviewed. Constitutional: Appearance: Normal appearance. She is obese. HENT: Head: Normocephalic and atraumatic. Right Ear: Tympanic membrane normal. Left Ear: Tympanic membrane normal. Nose: Nose normal. Mouth/Throat: Mouth: Mucous membranes are moist. Pharynx: Oropharynx is clear. Eyes: Pupils: Pupils are equal, round, and reactive to light. Cardiovascular: Rate and Rhythm: Normal rate and regular rhythm. Pulses: Normal pulses. Heart sounds: Normal heart sounds. Comments: LUE +2 pitting edema Pulmonary: Effort: Tachypnea present. Breath sounds: Normal air entry. Examination of the right-lower field reveals rales. Examination of the left-lower field reveals rales. Rales present. Abdominal: General: Abdomen is flat. Bowel sounds [...] Affect: Mood normal. Behavior: Behavior normal. Assessment/Plan Problem List Items Addressed This Visit Acute on chronic diastolic (congestive) heart failure (CMS/HCC) - Primary Discussed with Dr. Hennessy's office pt symptoms and clinical condition today in office. Sent pt to ER for further workup and tx of suspected CHF exacerbation. documented in this encounter [facility] 05-22-2024 Note HNO ID: [id number] Author: BOO BUCHANAN PA-C Service: ? Author Type: Physician Lumber Sorter Type: Progress Notes Filed: 05/22/2024 13:53 Note [...] She was recommended for second opinion at [facility]. She also had a CRP and [...] of the hardware. Bone scan performed at [facility]'s to be uploaded to the system. Boo Buchanan (more content not included)... [facility] 05-22-2024 History of Present illness Narrative [...] She was recommended for second opinion at [facility]. She also had a CRP and [...] of the hardware. Bone scan performed at [facility]' to be uploaded to the system. Boo Buchanan PA-C documented in this encounter [facility] 05-22-2024 Note HNO ID: [id number] Author: JYOTHI CRUZ RT(R) Service: ? Author [...] PATIENT PRESENTS WITH AN IMPLANTABLE OR ATTACHED DRUG PURCHASER: No RADIOLOGY DEPARTMENT: General X-ray: Exam(s) Completed: Upper Extremity X-Ray(s): Shoulder, AP / TRUE AP / AXILLARY / SUPRA OUTLET left PERIPHERAL IV DATA: Not applicable SIGNED BY: RT Chaparrita(R) May 22, 2024 1:25 PM [facility] 05-22-2024 History of Present illness Narrative [...] PATIENT PRESENTS WITH AN IMPLANTABLE OR ATTACHED DRUG PURCHASER: No RADIOLOGY DEPARTMENT: General X-ray: Exam(s) Completed: Upper Extremity X-Ray(s): Shoulder, AP / TRUE AP / AXILLARY / SUPRA OUTLET left PERIPHERAL IV DATA: Not applicable SIGNED BY: RT Chaparrita(R) May 22, 2024 1:25 PM documented in this encounter [facility] 05-09-2024 History of Present illness Narrative Images from the original note were not included. HISTORY OF PRESENT ILLNESS: EST PT Breann Starks is an 78 y.o. @ female. (EST PT ; LAST APPT W/ QUINN) RECHECK (L) SHOULDER PAIN ; HERE FOR BONE SCAN RESULTS 05/02/24 @ [facility] (VERBAL GIVEN PER QUINN - REFERRAL SENT TO DR AMIN) & LABS 05/09/24 @ [facility] (CBC / SED RATE / CRP) S/P (L) REVERSE TSR 12/29/21 - DR AMIN XRAYS, (L) SHOULDER & C-SPINE 04/16/24 IN EPIC ATTEMPTED MRI @ [facility] - UNABLE TO OBTAIN IMAGES D/T PACEMAKER PLACEMENT BONE SCAN 05/02/24 @ [facility] LABS 05/09/24 @ [facility] (CBC / SED RATE / CRP) NO MDP / PREDNISONE NO RECENT PHYSICAL THERAPY PAIN MGMT @ [facility] (LBP) CONTINUES TO HAVE CONSTANT DISCOMFORT IN BICEP - SOME POSTERIOR DISCOMFORT ; STARTING TO HAVE SOME NECK PAIN ; WORSE WITH ACTIVITY / MOVEMENT. NOTES LIMITED ROM / WEAKNESS - UNABLE TO RAISE HER ARM BY HERSELF. SOME OCCASIONAL RADIATING PAIN, WITH MILD N/T. TAKING NORCO TID / MUSCLE RELAXER - SOME RELIEF ; ALSO USING ICE. 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 flecainide (TAMBOCOR) 100 mg, Oral, Every 12 hours furosemide (LASIX) 40 mg, Oral, Daily HYDROcodone-acetaminophen (Hooker) 5-325 MG tablet 1 tablet, Oral, 3 times daily PRN Multiple Vitamins-Minerals (CENTRUM SILVER 50+WOMEN PO) 1 tablet, Oral, Daily Natural Vitamin D-3 5,000 Units, Oral, Daily omeprazole (PRILOSEC) 40 mg, Oral, Daily spironolactone (ALDACTONE) 25 mg, Oral, Daily verapamil ER (VERELAN) 360 mg, Oral, Daily RT vitamin C 100 mg, Oral, Daily PHYSICAL EXAM: Shoulder Musculoskeletal Exam Inspection Left Ecchymosis: none Peripheral edema: none Atrophy: none Masses: none Prior incision comment: anterior Incision: well-healed Palpation Left Crepitus: no crepitus Increased warmth: none Tenderness: present Anterior shoulder: moderate Posterior shoulder: moderate Greater tuberosity: moderate Bicipital groove: none Proximal biceps: moderate Distal biceps: none Lateral arm: moderate Elbow: none Palpation additional comments: Neg Spurlings Silverer strength symmetric. Wrist flex/ ext. Symmetric 5/5 Range of Motion Left Active ROM: abnormal and pain. Passive ROM: abnormal and pain. Active forward elevation: 60. Passive forward elevation: 90. Shoulder active abduction: 60. Passive abduction: 90. Active external rotation in abduction: 40. Passive external rotation in abduction: 60. Active internal rotation behind the back: hip. Range of motion additional comments: + pain with range of motion. NO EVIDENCE OF WRIST DROP, ABLE TO MAKE OKAY SIGN Strength Left External rotation is affected by pain. Internal rotation is affected by pain. Abduction is affected by pain. Strength additional comments: MOTORS HAND AND WRIST, NO EVIDENCE OF WRIST DROP, ABLE TO MAKE OKAY SIGN Neurovascular Left Left shoulder nerve sensation is normal. Radial pulse: normal and 2+ Capillary refill: <3 sec Axillary nerve sensory distribution: normal Scapula Left Left shoulder scapula is normal. Position: normal Dyskinesia: none Winging: none Special Tests Special tests additional comments: Relflexs 1+ symmetric Biceps, triceps brachial radialis neg clonus. Vitals: There is no height or weight on file to calculate BMI. Tobacco Use: Medium Risk (05/09/2024) Patient History Smoking Tobacco Use: Former Smokeless Tobacco Use: Unknown Passive Exposure: Past Alcohol Use: Patient Declined (08/30/2023) AUDIT-C Frequency of Alcohol Consumption: Patient declined Average Number of Drinks: Patient declined Frequency of Binge Drinking: Patient declined IMAGING: Procedures No orders of the defined types were placed in this encounter. ASSESSMENT: ICD-10-CM 1. Acute pain of left shoulder M25.512 2. 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 If patient''s symptoms significantly worsen and they cannot get a hold of us or their family physician, we have recommended that the patient proceed to the nearest emergency department (room). Dr. Cardenas obtained history and examined the patient, I am acting as scribe for Dr. Cardenas/[facility], PLAN: We have reviewed prior (L) shoulder xrays and discussed bone scan / lab results with patient at bedside (patient had blood work completed this morning) : sed rate - elevated, WBC 7.0, and CRP is pending. Patient is scheduled to see Dr. Amin in August. She will contact our office if she would like to proceed with tx with Dr. Nunez ; patient will need to obtain OP note to provide to their office to be reviewed prior to scheduling consult. We have discussed her hEP and restrictions and will see her back on a prn basis. Sakina Cardenas D.O. documented in this encounter [facility] 03-02-2024 Note Chief Complaint consultation for anemia HPI Staff 78 year old female presents on consultation from [facility] [place] for anemia. Labs completed yesterday with [...] PSVT, spinal stenosis, cervical radiculopathy; referred from [facility] ED for anemia, low iron, and [...] (paroxysmal supraventricular t (more content not included)... [facility] Comment on above: Result Comment: Elec tronically Signed By: CATHERINE CUBA, Ortega Quinonez\Date and Time Signed: 03/02/24 13:01 EDT 01-17-2024 Note Cardiovascular Medic [facility] SUBJECTIVE Chief Complaint Patient presents with Atrial Fibrillation Breann Starks is a 78 y.o. female here for follow-up. HPI PMHx: A-fib, atrial tachycardia s/p ablation 2005, sick sinus syndrome s/p PPM 10/2020 dual-chamber [employer], COPD, mild CAD s/p cardiac cath 2010, SHAWANDA noncompliant with mask, and obesity. She has been doing well since last seen. No significant changes. Denies c/o CP, dyspnea, orthopnea, PND, LE edema, dizziness/LH, palpitations, syncope. Patient Active Problem List Diagnosis Disorder of bursae of shoulder region Chronic obstructive lung disease (CMS/HCC) Atherosclerosis of [place] coronary artery of [place] heart without angina pectoris Diaphragmatic hernia [...] Final Monocytes Absolu (more content not included)... [facility] 01-17-2024 Note Patient here for 6 m o follow up persistent afib, CAD, hypertension, and sinus node dysfunction. Her device was interrogated in the office last month. Denies chest pain, SOB, lightheadedness/syncope, and bleeding on Eliquis. Says she feels great. Review of Systems Musculoskeletal: Positive for back pain. Neurological: Positive for numbness. All other systems reviewed and are negative. [facility] 10-07-2021 Evaluation note Encounter Date Diagnosis Assessment Notes Sep, LOJA (nonalcoholic steatohepatitis ) (ICD-10 - K75.81) OBTAIN FIBROSURE RESULTS FROM [facility] ON RESULTS PT ENCOURAGED WEIGHT LOSS RTO ONE YEAR WITH LABS ANNUALLY Sep, Unspecified cirrhosis of liver (ICD-10 - K74.60) [employer] Other 12-15-2021 Evaluation note* Encounter Date Diagnosis Assessment Notes Treatment Notes Treatment Clinical Notes Aug, Nonalcoholic steatohepatitis (LOJA) (ICD-10 - K75.81) RTO 6-8 WEEKS Aug, Unspecified cirrhosi s of liver (ICD-10 - K74.60) Aug, Morbid obesity (ICD- 10 - E66.01) [employer] Other Evaluation + Plan note No data available for this section [facility] [place] Evaluation noteNo assessment information available [facility] Work Phone: Evaluation note* Diagnosis 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)- Primary Left shoulder pain, unspecified chronicity Left shoulder pain, unspecified chronicity [facility] Left shoulder pain, unspecified chronicity [facility] Diagnosis Acute on chronic diastolic (congestive) heart failure (CMS/HCC) [facility] Diagnosis Essential hypertension (CMS/HCC)- Primary Unspecified [...] syndrome, unspecified type documented in this encounter [facility]* Diagnosis Essential hypertension (CMS/HCC)- [...] Unspecified essential hypertension documented in this encounter [facility]* Diagnosis Essential hypertension (CMS/HCC)- [...] Other thrombophilia (CMS/HCC) documented in this encounter [facility]* Diagnosis Essential hypertension (CMS/HCC)- [...] blood loss (chronic) documented in this encounter [facility]* Diagnosis Essential hypertension (CMS/HCC)- [...] Nausea Nausea alone documented in this encounter [facility]Evaluation note* Diagnosis Essential hypertension (CMS/HCC)- [...] Persistent atrial fibrillation (HCC) (CMS/HCC) Atrial fibrillation Gastroesophageal reflux disease without esophagitis Esophageal reflux Acute non-recurrent sinusitis, unspecified location Nausea Nausea alone [facility] Diagnosis Acute pain of left shoulder- Primary History of reverse total replacement of left shoulder joint [facility] Diagnosis Chronic left shoulder pain Pain in joint, shoulder region documented in this [facility]* Diagnosis Acute on chronic diastolic (congestive) heart failure (CMS/HCC)- Primary documented in this encounter [facility] HealthcareHistory general Narrative - Reported* Type Description [...] Surgical History pacemaker Hospitalization History see above [employer] Other Hospital Discharge instructions No data available for this section [facility] [place] Progress note No data available for this section [facility] [place] Reason for referral (narrative)* Diagnostic Procedure Only (Routine) - Closed Specialty Diagnoses / Procedures Referred By Contac t Referred To Contact XR IMAGING Diagnoses Left shoulder pain, unspecified chronicity Procedures XR SHOULDER ORTHO 4V AP/TRUE AP/LAT/OUTLET LEFT RADEX SHOULDER COMPLETE MINIMUM 2 VIEWS Boo Buchanan PA-C [address] [place] [address] [place] [address] Referral ID Status Reason Start Date Expiration Date V isits Requested Visits Authorized [id number] Closed Auto-Generate d Referral 05/08/2024 06/07/2025 1 1 [facility] for visit Narrative* Diagnostic Procedure Only (Routine) - Closed Specialty Diagnoses / Procedures Referred By Contac t Referred To Contact XR IMAGING Diagnoses Left shoulder pain, unspecified chronicity Procedures XR SHOULDER ORTHO 4V AP/TRUE AP/LAT/OUTLET LEFT RADEX SHOULDER COMPLETE MINIMUM 2 VIEWS Boo Buchanan PA-C [address] [place] [address] [place] [address] Referral ID Status Reason Start Date Expiration Date V isits Requested Visits Authorized [id number] Closed Auto-Generate d Referral 05/08/2024 06/07/2025 1 1 [facility] Summary Purpose Family History No Family [...] Referred By Millie t Referred To Contact Diagnoses Chronic left shoulder pain Monster Calvillo, ELBERT [address] [place] [phone] Referral ID Status Reason Start Date Expiration Date V isits Requested Visits Authorized [id number] Pending Review 05/16/2024 11/12/2024 1 1 Specialty Diagnoses / Procedures Referred By Millie egan Referred To Contact CT IMAGING Diagnoses 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) Procedures CT SHOULDER WO IVCON LEFT CT UPPER EXTREMITY W/O CONTRAST MATERIAL Boo Buchanan PA-C [address] [place] [address] Ct [facility] [place] [address] Referral ID Status Reason Start Date Expiration Date Visits Requested Visits Authorized [id number] New Request Auto-Generat ed Referral 05/22/2024 06/21/2025 1 1 Specialty Diagnoses / Procedures Referred By Millie egan Referred To Contact XR IMAGING Diagnoses Left shoulder pain, unspecified chronicity Procedures XR SHOULDER ORTHO 4V AP/TRUE AP/LAT/OUTLET LEFT RADEX SHOULDER COMPLETE MINIMUM 2 VIEWS Boo Buchanan PA-C [address] [place] [address] Xr Imaging [id number] Referral ID Status Reason Start Date Expiration Date V isits Requested Visits Authorized [id number] Closed Auto-Generate d Referral 05/08/2024 06/07/2025 1 1 Additional Source Comments INFORMATION SOURCE (unrecogn ized section and content) DATE CREATED AUTHOR 10/23/2021 [facility] DATE CREATED AUTHOR AUTHOR'S ORGANIZ ATION 01/22/2022 [facility] DATE CREATED AUTHOR AUTHOR'S ORGANIZ ATION 02/18/2023 [facility] DATE CREATED AUTHOR AUTHOR'S ORGANIZ ATION 03/11/2024 Mitchell Wilde [facility] DATE CREATED AUTHOR AUTHOR'S ORGANIZ ATION 05/24/2024 [facility] DATE CREATED AUTHOR AUTHOR'S ORGANIZ ATION 07/20/2024 [facility] DATE CREATED AUTHOR AUTHOR'S ORGANIZ ATION 08/05/2024 [facility] EPIC DATE CREATED AUTHOR AUTHOR'S ORGANIZ ATION 09/03/[address] [facility] DATE CREATED AUTHOR AUTHOR'S ORGANIZ ATION 09/05/2024 [facility] REASON FOR VISIT (unrecogniz ed section and content) Reason Comments Radiology XR Reason Comments New Specialty Diagnoses / Procedures Referred By Contac t Referred To Contact Orthopedics / [facility] Diagnoses Acute pain of left shoulder History of reverse total replacement of left shoulder joint Procedures OFFICE/OUTPATIENT NEW HIGH MDM 60 MINUTES OFFICE/OUTPATIENT ESTABLISHED HIGH MDM 40 MIN AMB REFERRAL TO ORTHOPAEDIC SURGERY Pedro Pablo Cruz PA [address] [facility] [address] [place] [address] González Alvarado MD [address] [place] [address] Referral ID Status Reason Start Date Expiration Date V isits Requested Visits Authorized [id number] Authorized 05/08/2024 09/11/2024 99 99 Reason Comments Med Refill Reason Comments Establish Care Previous pcp Dr Damian adSees cardiology-dr Ferrell. [facility]-- orthopedic Hypertension Reason Comments Results EMG RESULTS post nasal drainage Reason Comments Nausea Reason Comments Nausea Results UGI results Reason Comments Pain Reason Onset Date Comments Med Refill 05/16/2024 Reason Comments Follow-up Cough Care Teams (unrecognized sec tion and content) [...] October 11, 2023 End: October 11, 2023 Agricultural Loan Officer Relationship Specialty Start Date End Date Shaikh [...] May 02, 2024 End: May 02, 2024 Agricultural Loan Officer Relationship Specialty Start Date End Date Luisana Johnson MD [address] [place] [address] PCP - General 01/05/06 Pedro Pablo Cruz MD [address] [facility] [place] [id number] Referring Infectious Diseases 05/07/24 Agricultural Loan Officer Relationship Specialty Start Date End Date Luisana Johnson MD [address] [place] [address] PCP - General 01/05/06 Pedro Pablo Cruz MD [address] [place] [address] Referring Infectious Diseases 05/07/24 Agricultural Loan Officer Relationship Specialty Start Date End Date Luisana Johnson MD [address] [facility] [place] [address] PCP - General 01/05/06 Pedro Pablo Cruz MD [address] [place] [address] Referring Infectious Diseases 05/07/24 Agricultural Loan Officer Relationship Specialty Start Date End Date Wesley Long MD [address] [place] [phone] PCP - General Family Medicine 05/17/24 Monster Calvillo NP [address] [place] [address] Nurse Practitioner Family Medicine 05/17/24 Agricultural Loan Officer Relationship Specialty Start Date End Date Wesley Long MD [address] [place] [phone] PCP - General Family Medicine 05/17/24 Monster Calvillo NP [address] [place] [address] Nurse Practitioner Family Medicine 05/17/24 Agricultural Loan Officer Relationship Specialty Start Date End Date Wesley Long MD [address] [place] [address] PCP - General Family Medicine 05/17/24 Monster Calvillo NP [address] [place] [address] Nurse Practitioner Family Medicine 05/17/24 Agricultural Loan Officer Relationship Specialty Start Date End Date Wesley Long MD [address] [place] [phone] PCP - General Family Medicine 05/17/24 Monster Calvillo NP [address] [place] [address] Nurse Practitioner Family Medicine 05/17/24 Agricultural Loan Officer Relationship Specialty Start Date End Date Wesley Long MD [address] [place] [phone] PCP - General Family Medicine 05/17/24 Monster Calvillo NP [address] [place] [address] Nurse Practitioner Family Medicine 05/17/24 Agricultural Loan Officer Relationship Specialty Start Date End Date Wesley Long MD [address] [place] [phone] PCP - General Family Medicine 05/17/24 Monster Calvillo NP [address] [place] [address] Nurse Practitioner Family Medicine 05/17/24 Agricultural Loan Officer Relationship Specialty Start Date End Date Wesley Long MD [address] [place] [phone] PCP - General Family Medicine 05/17/24 Monster Calvillo NP [address] [place] [address] Nurse Practitioner Family Medicine 05/17/24 Agricultural Loan Officer Relationship Specialty Start Date End Date Wesley Long MD [address] [place] [address] PCP - General Family Medicine 05/17/24 Monster Calvillo NP [address] [place] [address] Nurse Practitioner Family Medicine 05/17/24 Agricultural Loan Officer Relationship Specialty Start Date End Date Wesley Long MD [address] [place] [address] PCP - General Family Medicine 05/17/24 Monster Calvillo NP [address] [place] [address] Nurse Practitioner Family Medicine 05/17/24 Agricultural Loan Officer Relationship Specialty Start Date End Date Wesley Long MD [address] [place] [address] PCP - General Family Medicine 05/17/24 Monster Calvillo NP [address] [place] [address] Nurse Practitioner Family Medicine 05/17/24 Agricultural Loan Officer Relationship Specialty Start Date End Date Wesley Long MD [address] [place] [phone] PCP - General Family Medicine 05/17/24 Monster Calvillo NP [address] [place] [address] Nurse Practitioner Family Medicine 05/17/24 Agricultural Loan Officer Relationship Specialty Start Date End Date Wesley Long MD [address] [place] [phone] PCP - General Family Medicine 05/17/24 Monster Calvillo NP [address] [place] [address] Nurse Practitioner Family Medicine 05/17/24 Agricultural Loan Officer Relationship Specialty Start Date End Date Wesley Long MD [address] [place] [phone] PCP - General Family Medicine 05/17/24 Mosnter Calvillo NP [address] [place] [address] Nurse Practitioner Family Medicine 05/17/24 Agricultural Loan Officer Relationship Specialty Start Date End Date Wesley Long MD [address] [place] [phone] PCP - General Family Medicine 05/17/24 Monster Calvillo NP [address] [place] [address] Nurse Practitioner Family Medicine 05/17/24 Agricultural Loan Officer Relationship Specialty Start Date End Date Shaikh Denis MD [address] [place] [address] PCP - General Internal Medicine 10/17/23 Agricultural Loan Officer Relationship Specialty Start Date End Date Shaikh Denis MD [address] [place] [address] PCP - General Internal Medicine 10/17/23 Agricultural Loan Officer Relationship Specialty Start Date End Date Shaikh Denis MD [address] [place] [phone] PCP - General Internal Medicine 10/17/23 Agricultural Loan Officer Relationship Specialty Start Date End Date Wesley Long MD [address] [place] [phone] PCP - General Family Medicine 05/17/24 Monster Calvillo NP [address] [place] [address] Nurse Practitioner Family Medicine 05/17/24 Agricultural Loan Officer Relationship Specialty Start Date End Date Wesley Long MD [address] [place] [phone] PCP - General Family Medicine 05/17/24 Monster Calvillo NP [address] [place] [address] Nurse Practitioner Family Medicine 05/17/24 Goals (unrecognized [...] or prosecute any alcohol or drug abuse patient.[facility] the event this information is protected by the Federal Confidentiality of Alcohol and Drug Abuse Patient Records regulations: The Federal rules restrict any use of the information to criminally investigate or prosecute any alcohol or drug abuse patient.[facility] the event this information is protected by the Federal Confidentiality of Alcohol and Drug Abuse Patient Records regulations: The Federal rules restrict any use of the information to criminally investigate or prosecute any alcohol or drug abuse patient.[facility] FOR RECORDS PERTAINING TO PATIENTS WHO [...] BE BASED ON THE PRIMARY CLINICAL RECORDS. [facility] [employer] [facility] provides no warranty or guarantee of the accuracy or completeness of information in this document.
[2024-09-10 09:35] VITALS: BP 182/95
[2024-09-10 09:37] VITALS: BP 187/86
[2024-09-10 09:39] VITALS: PULSE 84; PULSE 85; O2SAT 99
[2024-09-10] MEDS: METHYLPREDNISOLONE ACETATE 40 MG/ML VIAL INJ (09:39)
[2024-09-10] MEDS: LIDOCAINE HCL 2% 400 MG/20 ML MDV INJ (09:40)
[2024-09-10] MEDS: BUPIVACAINE HCL 0.25% PF 25 MG/10 ML VIAL INJ (09:40)
--- NOTE | 2024-09-10 09:40 | P.ON_ITS ---
Date of procedure: 09/10/24 Pre-op diagnosis: Left shoulder pain Post-op diagnosis: same as pre-op Procedure: Procedure: Left suprascapular and axillary nerve block Medications: Bupivacaine 0.25% 2cc, depomedrol 40mg The patient was seen and examined in the preoperative holding area. Informed consent was obtained and placed on the chart.? The patient was brought to the medical procedure unit and placed in the prone position. A timeout was completed verifying correct patient, procedure site, positioning, plan, and special equipment.? Using aseptic technique, under direct fluoroscopic visualization, a 25-gauge 3-1/2 inch spinal needle was advanced to the superior portion of the left posterior osseous rim of the glenoid fossa, lateral and superior to the spinal glenoid notch.? 0.5 cc of the above solution was injected.? The needle was then redirected 3 mm inferiorly and another 0.5 cc of the above medication was injected.? This needle was then removed.? Using aseptic technique, under direct fluoroscopic visualization, another 25-gauge 3-1/2 inch spinal needle was adv anced toward the most inferior and lateral border of the greater tubercle.? 0.5 cc of the above medication was administered.? The needle was then redirected 3 mm inferiorly.? 0.5 cc was administered in this region.? This needle was removed. ? The patient was taken to the postprocedural recovery area and monitored for an appropriate length of time before being found suitable for discharge in the accompaniment of a responsible adult. Anesthesia: Local Surgeon: Miguel Murphy Pathology: none sent Condition: stable Disposition: no change
== END 2024-09-10 09:43 | disposition home or self-care (01) ==
LOC: SURGOUT 07:48
PROVIDERS: PCP Internal Medicine; Visit Provider Anesthesiology
DX: M25.512 Pain in left shoulder (principal)
CPT/HCPCS: 64417; 64418; J0665; J1010; J3301

== ENCOUNTER 2024-09-13 09:07 | Outpatient (OUT) | payer MEDICARE, SELFPAY ==
--- OUTSIDE RECORDS SUMMARY | 2024-09-13 09:29 | XMS_ITS | CCD ---
Author Organization [facility] CliniSydc Care Team Providers Care Well Tester Name Role Phone ZANE MCGUIRE Admitting Unavailable YANCY HENNESSY Referring Unavailable LUISANA JOHNSON Primary Care Unavailable ZANE MCGUIRE Attending Unavailable YANCY HENNESSY Surgeon Unavailable NM Procedure Practitioner Unavailab Hong Adler Unavailable JOHNSON [...] JOHNSON ., DR LUISANA Jarquin Attending Unavailable OJHNSON ., DR LUISANA Jarquin Consulting Unavailable JOHNSON [...] Primary Care Unavailable THANG Clement Attending Provider [phone] MD Cira Sahu Primary Care Provider THANG Clement Attending Provider Cira CUBA [facility] Primary Care Provider Ortega ALEXANDER Attending Unavailable SHAIKH DENIS Referring Unavailable Ortega ALEXANDER Attending Unavailable MD Cira [facility] Primary Care Provider DO James Jones Attending Provider YOLY Cruz Attending Provider Luisana Johnson MD Primary Care Provider Pedro Pablo Cruz MD Unavailable LUISANA JOHNSON Primary Care Unavailable BOO BUCHANAN Attending Unavailable PEDRO PABLO CRUZ Referring Unavailable LUISANA JOHNSON Primary Care Unavailable BOO BUCHANAN Referring Unavailable Wesley Long MD Primary Care Provider Monster Calvillo NP Unavailable YANCY HENNESSY Referring Unavailable NICANOR CANNON Attending Unavailable YANCY HENNESSY Referring Unavailable KOLTON ALTMAN Attending Unavailable JR. CARDENAS GEORGE C Attending Unavaila RENNY Barnhart Attending Unavailable RENNY HANSEN Attending Unavailable FAFRANCY, Attending Unavailable FAWMADHURI, SAHU Attending Unavailable ELEANOR LEAHY Attending Unavailable MONSTER CALVILLO Attending Unavailabl e PEDRO PABLO CRUZ Referring Unavailable PEDRO PABLO CRUZ Attending Unavailable FAWWAAlysa, Attending Unavailable FAWWAD, Attending Unavailable FAWWAD, SAHU Attending Unavailable FAWWAD, SAHU Attending Unavailable FAWMADHURI, SAHU Attending Unavailable FaSantos sen MDikh Primary Care Provider [phone] Giedraitis , Andrius Vytautwilma Attending Unavailable Giedraitis , Andrius Vytautas Attending Unavailable Giedraitis , Andrius Vytautas Attending Unavailable Giedraitis , Andrius Vytautas Attending Unavailable Giedraitis , Andrius Vytautwilma Attending Unavailable Pedro Pablo Cruz Admitting Unavailable Pedro Pablo Cruz Attending Unavailable Renny Hansen Primary Care Unavailable Renny Hansen Primary Care Unavailable Renny Hansen Referring Unavailable Katharina [place] Admitting Unavail able Katharina [place] Attending Unavail able Fafrancy, [facility] Primary Care Unavailable Claire Clement Admitting Unavailable Claire Clement Attending Unavailable abiodunnyalysa, [facility] Primary Care Unavailable Kayley Reeder Admitting Unavailable Kayley Reeder Attending Unavailable Dominiquenyalysa, [facility] Primary Care Unavailable James Jones Admitting Unavailable James Jones Attending Unavailable James Jones Admitting Unavailable James Jones Attending Unavailable francy, [facility] Primary Care Unavailable Pedro Pablo Cruz Admitting Unavailable Pedro Pablo Cruz Attending Unavailable Fafrancy, [facility] Primary Care Unavailable Allergies Allergy Classification Reported Allergen(s) Allergy Type Date of Onset Reaction(s) Facility NSAIDs (1 source) meloxicam; Translations: [Mobic] Drug Allergy [facility] Repository Unclassified (1 source) No Known Medication Allergies; Translations: [No Known Medication Allergies] Propensity to adverse reactions (disorder) [facility] Repository (1 source) novacaine; Translations: [novacaine] Propensity to adverse reactions (disorder) 2 [facility] Repository (20 sources) NSAIDs Propensity to adverse reactions 4 HEART ISSUES [facility] (7 sources) Adhesive agent; Translations: [adhesive] Allergy to substance 4 [facility] (4 sources) NSAIDS (Non-Steroidal Anti-Inflamma; Translations: [NSAIDS (Non-Steroidal Anti-Inflamma] Allergy to substance 4 [facility] (20 sources) Digoxin Drug Allergy 4 [facility] Work Phone: (20 sources) Wound Dressing Adhesive Drug Allergy 4 [facility] Medications Current Medications Medication Drug Class(es) Dates Sig (Normalized) Sig (Original) acetaminophen 325 mg / HYDROcodone bitartrate 5 mg oral tablet (20 sources) Opioid Agonist Start: 06-21-2024 take 1 tablet by mouth in the morning, then take 1 tablet by mouth in the evening, then take 1 tablet by mouth at bedtime HYDROcodone-aceta minophen ([place]) 5-325 MG tablet Take 1 tablet by mouth in the morning and 1 tablet in the evening and 1 tablet before bedtime. 06/21/2024 Active Start: 04-11-2024 End: 06-15-2024 take 1 tablet by mouth three times daily as needed for pain HYDROcodone-acetaminophen ([place]) 5-325 MG tablet Indications: Chronic left shoulder pain Take 1 tablet by mouth 3 (three) times a day as needed for severe pain 90 tablet 05/16/2024 06/15/2024 Active Start: 03-01-2024 take 1 tablet by [facility] twice daily acetaminophen-hydrocodone 325 mg-5 mg or [...] Start: 03-01-2024 take 1 tablet by dirk once daily Lasix 40 mg Tab 40 [...] Active Start: 02-15-2023 take 1 capsule by mo ut once daily omeprazole (PriLOSEC) [address] capsule Indications: Peptic ulcer, site unspecified, unspecified as acute or chronic, without hemorrhage or perforation , Peptic ulcer TAKE 1 CAPSULE BY MOUTH EVERY DAY 90 capsule 1 01/11/2024 Active take 1 capsule by mi ut every twenty-four hours Omeprazole 40 MG [...] release oral capsule (20 sources) Calcium Channel Ozyz Start: take 1 capsule by mouth once [...] morning. 02/14/2023 Active take 1 capsule by [facility] every twenty-four hours Verapamil [...] Daily, # 90 tab(s), Refills(s) 0, Pharmacy: [facility]/pharmacy #[id number], 141, cm, 01/11/23 10:30:00 [...] unspecified; Translations: [Centrilobular emphysema] Onset: 2 Resolved: Chronic Coagulation and hemorrhagic disorders (2 sources) [...] disease (20 sources) Atherosclerotic heart disease of [place] coronary artery without angina pectoris; Translations: [Coronary [...] Onset: 3 Episodic Other aftercare (1 source) [facility] (current) use of anticoagulants; Translations: [MALWARE ANALYST CURRNT USE 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] Onset: 3 Episodic Other aftercare (1 source) Other custodial (current) drug therapy; Translations: [OTH MALWARE ANALYST CURRENT DRUG THERAPY] Onset: 3 Episodic Other [...] chronic pain] Chronic Other non-traumatic joint disorders (6 sources) Pain [...] 2 Unclassified (2 sources) PACEMAKER Onset: 4 Viral [...] 09-06-2023 09-06-2023 Episodic Other non-traumatic joint disorders (1 source) [...] C-Reactive Protein 1.1 mg/dL High 0.0-0.5 [facility] Comment on above: Result Comment: PERF ORMED BY: [facility] [address] [place] [address] PATHOLOGIST TELEVISION CAMERA OPERATOR KATHLEEN RAMOS M.D. Performed By: #### C RP #### [facility] [address] CBC W Auto Differential pane l (Bld)on 08-24-2024 Basophils (Bld) [#/Vol] 0.1 10*3/uL 0.0 - 0.2 10*3/uL [facility] Basophils/100 WBC Manual cnt (Syn fld) 0.9 % . [facility] Eosinophils (Bld) [#/Vol] 0.2 10*3/uL 0.0 - 0.45 10*3/uL [facility] Eosinophils/100 WBC Manual cnt (Syn fld) 2.6 % . [facility] Erythrocyte distribution width (RBC) [Ratio] 19.3 % High 11.9 - 15.3 % [facility] Hematocrit (Bld) [Volume fraction] 28.2 % Low 34.0 - 46.4 % [facility] Hemoglobin (Bld) [Mass/Vol] 8.6 g/dL Low 11.8 - 15.4 g/dL [facility] Interpretation and review of laboratory results Abnormal [facility] Lymphocytes (Bld) [#/Vol] 2.1 10*3/uL 1.00 - 4.8 10*3/uL [facility] Lymphocytes/100 WBC Manual cnt (Syn fld) 23.5 % . [facility] MCH (RBC) [Entitic mass] 21.8 pg Low 24.7 - 34.3 pg [facility] MCHC (RBC) [Mass/Vol] 30.4 g/dL Low 32.0 - 35.0 g/dL [facility] MCV (RBC) [Entitic vol] 71.9 fL Low 80 - 100 fL [facility] Monocytes (Bld) [#/Vol] 0.6 10*3/uL 0.0 - 0.8 10*3/uL [facility] Monocytes+Macrophages/ 100 WBC Manual cnt (Syn fld) 6.8 % . [facility] Neutrophils (Bld) [#/Vol] 5.9 10*3/uL 1.8 - 7.7 10*3/uL [facility] Neutrophils/100 WBC Manual cnt (Syn fld) 66.2 % . [facility] NRBC 0 /100{WBC} 0 - 0.5 /100{WBC} [facility] Platelet mean volume (Bld) [Entitic vol] 6.9 fL 6.3 - 10.7 fL [facility] Platelets (Bld) [#/Vol] 345 10*3/uL 150 - 450 10*3/uL [facility] RBC LM.HPF (Urine sed) [#/Area] 3.93 10*6/uL 3.60 - 5.00 10*6/uL [facility] WBC (Bld) [#/Vol] 8.9 10*3/uL 3.8 - 11.6 10*3/uL [facility] WBC LM.HPF (Urine sed) [#/Area] 8.9 10*3/uL 3.8 - 11.6 10*3/uL [facility] Complete Blood Count Auto Di ffon 08-24-2024 Basophils (Bld) [#/Vol] 0.1 10*3/uL Normal 0.0-0.2 [facility] Comment on above: Result Comment: PERF ORMED BY: [place] [address] PATHOLOGIST TELEVISION CAMERA OPERATOR KATHLEEN RAMOS M.D. Performed By: #### C BC, FE and TIBC, ARISTIDES, [id number] #### [place] [address] [place] Basophils/100 WBC (Bld) 0.9 % Normal . [facility] Comment on above: Performed By: #### C BC, FE and TIBC, ARISTIDES, [id number] #### [place] [address] [place] Eosinophils (Bld) [#/Vol] 0.2 10*3/uL Normal 0.0-0.45 [facility] Comment on above: Performed By: #### C BC, FE and TIBC, ARISTIDES, [id number] #### [address] Eosinophils/100 WBC (Bld) 2.6 % Normal . [facility] Comment on above: Performed By: #### C BC, FE and TIBC, ARISTIDES, [id number] #### [address] Erythrocyte distribution width (RBC) [Ratio] 19.3 % High 11.9-15.3 [facility] Comment on above: Performed By: #### C BC, FE and TIBC, ARISTIDES, [id number] #### [address] Hematocrit (Bld) [Volume fraction] 28.2 % Low 34.0-46.4 [facility] Comment on above: Performed By: #### C BC, FE and TIBC, ARISTIDES, [id number] #### [address] Hemoglobin (Bld) [Mass/Vol] 8.6 g/dL Low 11.8-15.4 [facility] Comment on above: Performed By: #### C BC, FE and TIBC, ARISTIDES, [id number] #### [address] Lymphocytes (Bld) [#/Vol] 2.1 10*3/uL Normal 1.00-4.8 [facility] Comment on above: Performed By: #### C BC, FE and TIBC, ARISTIDES, [id number] #### [address] Lymphocytes/100 WBC (Bld) 23.5 % Normal . [facility] Comment on above: Performed By: #### C BC, FE and TIBC, ARISTIDES, [id number] #### [address] MCH (RBC) [Entitic mass] 21.8 pg Low 24.7-34.3 [facility] Comment on above: Performed By: #### C BC, FE and TIBC, ARISTIDES, [id number] #### [address] MCV (RBC) [Entitic vol] 71.9 fL Low 80-100 [facility] Comment on above: Performed By: #### C BC, FE and TIBC, ARISTIDES, [id number] #### [address] Mean Corpuscular HGB Conc 30.4 g/dL Low 32.0-35.0 [facility] Comment on above: Performed By: #### C BC, FE and TIBC, ARISTIDES, [id number] #### [address] Monocytes (Bld) [#/Vol] 0.6 10*3/uL Normal 0.0-0.8 [facility] Comment on above: Performed By: #### C BC, FE and TIBC, ARISTIDES, [id number] #### [address] Monocytes/100 WBC (Bld) 6.8 % Normal . [facility] Comment on above: Performed By: #### C BC, FE and TIBC, ARISTIDES, [id number] #### [address] Neutrophils (Bld) [#/Vol] 5.9 10*3/uL Normal 1.8-7.7 [facility] Comment on above: Performed By: #### C BC, FE and TIBC, ARISTIDES, [id number] #### [address] Neutrophils/100 WBC (Bld) 66.2 % Normal . [facility] Comment on above: Performed By: #### C BC, FE and TIBC, ARISTIDES, [id number] #### [address] NRBC% 0.0 /100{WBC} Normal 0-0.5 [facility] Comment on above: Performed By: #### C BC, FE and TIBC, ARISTIDES, [id number] #### [address] Platelet mean volume (Bld) [Entitic vol] 6.9 fL Normal 6.3-10.7 [facility] Comment on above: Performed By: #### C BC, FE and TIBC, ARISTIDES, [id number] #### [address] Platelets (Bld) [#/Vol] 345 10*3/uL Normal 150-450 [facility] Comment on above: Performed By: #### C BC, FE and TIBC, ARISTIDES, [id number] #### [address] RBC (Bld) [#/Vol] 3.93 10*6/uL Normal 3.60-5.00 [facility] Comment on above: Performed By: #### C BC, FE and TIBC, ARISTIDES, [id number] #### [address] WBC (Bld) [#/Vol] 8.9 10*3/uL Normal 3.8-11.6 [facility] Comment on above: Performed By: #### C BC, FE and TIBC, ARISTIDES, [id number] #### [address] Erythrocyte Sedimentation Ra aren 08-24-2024 ESR (Bld) [Velocity] 103 mm/h High 0-29 [facility] Comment on above: Result Comment: PERF ORMED BY: [place] [address] PATHOLOGIST TELEVISION CAMERA OPERATOR KATHLEEN RAMOS M.D. Performed By: #### E SR #### [address] [address] [place] Ferritinon 08-24-2024 Ferritin [Mass/Vol] 8.6 ng/mL Low 11.0-306.8 [facility] Comment on above: Performed By: #### C BC, FE and TIBC, ARISTIDES, [id number] #### [address] Iron and TIBC Profileon 08-12 % Iron Saturation 3.2 % Low 20-50 The [facility] Comment on above: Performed By: #### C BC, FE and TIBC, ARISTIDES, [id number] #### [address] Iron [Mass/Vol] 14 ug/dL Low 50-212 [facility] Comment on above: Performed By: #### C BC, FE and TIBC, ARISTIDES, [id number] #### [address] Total Iron Binding Capacity 437 ug/dL Normal 255-450 [facility] Comment on above: Performed By: #### C BC, FE and TIBC, ARISTIDES, [id number] #### [address] Transferrin [Mass/Vol] 312 mg/dL Normal 203-362 [facility] Comment on above: Performed By: #### C BC, FE and TIBC, ARISTIDES, [id number] #### [address] Vit. B12/Folate Profileon Cobalamin (Vitamin B12) [Mass/Vol] 417 pg/mL Normal 180-914 [facility] Comment on above: Performed By: #### C BC, FE and TIBC, ARISTIDES, [id number] #### [address] Folate 28.0 ng/mL Normal >5.9 [facility] Comment on above: Result Comment: Nayely te reference range: >5.9 ng/ml The WHO technical consultation on folate and vitamin b12 deficiencies has determined that folate concentrations less than 4 ng/ml are considered deficient. PERFORMED BY: [facility] [address] [place] [address] PATHOLOGIST TELEVISION CAMERA OPERATOR KATHLEEN RAMOS M.D. Performed By: #### C BC, FE and TIBC, ARISTIDES, [id number] #### [facility] [address] TRANSFERRINon 07-25-2024 Transferrin [Mass/Vol] 284 mg/dL 192 - 364 mg/dL [facility] Comment on above: Performed at: [address] [id number] [employer] Sewer: Baudilio Givens PhD, Phone: [phone] [facility] ALL CBC WITH AUTO DIFFon BASOPHILS ABSOLUTE AUTO 0.1 [facility] Basophils/100 WBC (Bld) 0.9 % 0.2 - 2.0 % [facility] Eosinophils/100 WBC (Bld) 0.9 % 0.9 - 7.0 % [facility] Erythrocyte distribution width (RBC) [Ratio] 17.7 % High 11.0 - 15.0 % [facility] Hematocrit (Bld) [Volume fraction] 29.9 % Low 36.0 - 48.0 % [facility] Hemoglobin (Bld) [Mass/Vol] 8.7 g/dL Low 12.0 - 16.0 g/dL [facility] IMMATURE GRANULOCYTES ABS AUTO 0.03 [facility] Immature granulocytes/100 WBC (Bld) 0.3 % 0.0 - 0.5 % [facility] Interpretation and review of laboratory results Abnormal [facility] LYMPHOCYTES ABSOLUTE AUTO 1.4 [facility] Lymphocytes/100 WBC (Bld) 14.1 % Low 20.5 - 60.0 % [facility] MCH (RBC) [Entitic mass] 22.3 pg Low 26.7 - 34.0 pg [facility] MCHC (RBC) [Mass/Vol] 29.1 g/dL Low 29.9 - 35.2 g/dL [facility] MCV (RBC) [Entitic vol] 76.7 fL Low 81.0 - 99.0 fL [facility] MONOCYTES ABSOLUTE AUTO 0.7 [facility] Monocytes/100 WBC (Bld) 6.6 % 1.7 - 12.0 % [facility] NEUTROPHILS ABSOLUTE AUTO 7.7 High [facility] Neutrophils/100 WBC (Bld) 77.2 % High 43.0 - 75.0 % [facility] Platelet mean volume (Bld) [Entitic vol] 9.3 fL Low 9.5 - 13.5 fL [facility] TBH EO # 0.1 [facility] TB PLT 328 [facility] TB RBC 3.9 Low [facility] TB WBC 10 [facility] METRO IRON AND TIBCon 2023 Interpretation and review of laboratory results Abnormal [facility] TB IRON 17 ug/dL Low 50.0 - 170.0 ug/dL [facility] TB PERCENT IRON SATURATION 4.5 % [facility] TOTAL IRON BINDING CAPACITY 381 ug/dL 250.0 - 450.0 ug/dL [facility]iton 07-18-2024 Follow-up visit [id number] Breann Starks 1945 F Date Provider Department Center 07/18/2024 [id number]-UNI[place]OLTON ALTMAN AMISH Lubin Family History Adopted: Yes Family history unknown: Yes Family Status - Relation Status Age at Mother Father Level of Service:76765 NM OFFICE/OUTPATIENT ESTABLISHED MOD MDM 30 MIN Reason for Visit and Comments: Atrial Fibrillation [80] PACEMAKER [Other] Coronary Artery Disease [187] Hypertension [639652] Sinus node dysfunction [Other] - HAS BOSTON PACER Obesity [[id number]] Edema [[id number]] Normal [facility] CNOVon 05-22-2024 CNOV Office Visit (LOORRM) BREANN STARKS ([id number]) 1945 F Date Time Provider Department 05/22/24 [...] She was recommended for second opinion at [facility]. 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 Normal [facility] XR SHLDR 4V AP/HECTOR/LAT/OUTLE T LTon [...] other significant abnormality. IMPRESSION: EXPECTED POSTOPERATIVE APPEARANCE Intermediate School Teacher: STEVE Transcribe Date/Time: May 22 2024 2:42P Dictated by : VILMA ABREU MD This examination was interpreted and the report reviewed and electronically signed by: VILMA ABREU MD on May 22 2024 2:42PM EST [id number] Normal [facility] XR Shoulder - left 4 Viewson 05-22-2024 IMPRESSION: EXPECTED POSTOPERATIVE APPEARANCE Intermediate School Teacher: PSCB Transcribe Date/Time: May 22 2024 2:42P [...] RADIOLOGY Provider, [facility] [place] - 05/22/2024 * * *Final Report* * * DATE OF EXAM: May 22 2024 1:23PM JARRED 5604 - XR SHLDR 4V AP/HECTOR/LAT/OUTLET LT [...] significant abnormality. IMPRESSION IMPRESSION: EXPECTED POSTOPERATIVE APPEARANCE Intermediate School Teacher: STEVE Transcribe Date/Time: May 22 2024 2:42P Dictated by : VILMA ABREU MD This examination was interpreted and the report reviewed and electronically signed by: VILMA ABREU MD on May 22 2024 2:42PM [facility] Radiology Study observation (narrative) [facility] XR Shoulder - left 4 ViewsOr dered By: [facility] Provider on 05-22-2024 [facility] ALL CBC WITH AUTO DIFFon BASOPHILS ABSOLUTE AUTO 0.0 [facility] Basophils/100 WBC (Bld) 0.6 % 0.2 - 2.0 % [facility] Eosinophils/100 WBC (Bld) 1.0 % 0.9 - 7.0 % [facility] Erythrocyte distribution width (RBC) [Ratio] 19.6 % High 11.0 - 15.0 % [facility] Hematocrit (Bld) [Volume fraction] 32.9 % Low 36.0 - 48.0 % [facility] Hemoglobin (Bld) [Mass/Vol] 9.7 g/dL Low 12.0 - 16.0 g/dL [facility] IMMATURE GRANULOCYTES ABS AUTO 0.02 [facility] Immature granulocytes/100 WBC (Bld) 0.3 % 0.0 - 0.5 % [facility] Interpretation and review of laboratory results Abnormal [facility] LYMPHOCYTES ABSOLUTE AUTO 1.4 [facility] Lymphocytes/100 WBC (Bld) 20.4 % Low 20.5 - 60.0 % [facility] MCH (RBC) [Entitic mass] 22.8 pg Low 26.7 - 34.0 pg [facility] MCHC (RBC) [Mass/Vol] 29.5 g/dL Low 29.9 - 35.2 g/dL [facility] MCV (RBC) [Entitic vol] 77.4 fL Low 81.0 - 99.0 fL [facility] MONOCYTES ABSOLUTE AUTO 0.7 [facility] Monocytes/100 WBC (Bld) 9.8 % 1.7 - 12.0 % [facility] NEUTROPHILS ABSOLUTE AUTO 4.7 [facility] Neutrophils/100 WBC (Bld) 67.9 % 43.0 - 75.0 % [facility] Platelet mean volume (Bld) [Entitic vol] 8.5 fL Low 9.5 - 13.5 fL [facility] TBH EO # 0.1 [facility] TBH PLT 278 [facility] RBC 4.25 [facility] WBC 7.0 [facility] bone 3 phaseon 05-02-2024 SC bone 3 phase [facility] [place] [address] Nuclear Medicine Report Signed Patient: Breann Starks MR#: [id number] 171 : 1945 Acct:[id number] Age/Sex: 78 / F ADM Date: 05/02/24 Loc: [place] Room: Type: [facility] Attending Dr: Pedro Pablo Cruz PA-C Copies to: YOLY Sanon Jeffrey S DO Ordering Provider: Pedro Pablo Cruz PA-C Date of Service: 05/02/24 SC/SC bone 3 phase: M25.512, Z96.612 Nuclear medicine [...] Etienne Rhodes M.D.05/02/2024 2:44 PM Dictation Location: [place] [address] Transcribed By: [facility] 05/02/24 144 Dictated By: Etienne Rhodes DO 05/02/24 144 Signed By: 05/02/24 144 Normal [facility] Lab Reportson 03-07-2024 Lab Reports [id number] #1.00TIFF Normal [facility] 36on 03-06-2024 36 Echo from [...] to her pharmacy. BMP order faxed to [facility]. Breann verbalized understanding. Normal [facility] Consent for Procedure/Surger yon 03-05-2024 Consent for Procedure/Surgery [id number] #1.00TIFF Normal [facility] Ambulatory Visit Summaryon 0 03-02-2024 [...] you for choosing us for your care. [facility] ED Note-Physicianon 03-02-20 24 ED Note-Physician [id number]# 1.00TIFF [facility] Insurance Correspondenceon 0 03-02-2024 Insurance Correspondence [id number] 7#1.00TIFF [facility] Lab Reportson 03-02-2024 Lab Reports [id number] #1.00TIFF [facility] 36on 01-25-2024 36 Patient called stating ever since her device was adjusted last month she's had this weird feeling in her throat. I called Sony Asif from [employer] and he told me this feeling she's having should not be from her device. Patient informed. I suggested she see PCP for this. She verbalized understanding. Normal [facility] Office Visiton 01-17-2024 Follow-up visit [id number] Breann Starks 1945 F Date Provider Department Center 01/17/2024 NICANOR REGAN Family History Adopted: Yes Family history unknown: Yes Family Status - Relation Status Age at Mother Father Level of Service:05206 NM OFFICE/OUTPATIENT ESTABLISHED MOD MDM 30 MIN Reason for Visit and Comments: Atrial Fibrillation [80] Normal [facility] XR lumbar spine 6V w bending on 11-16-2023 XR lumbar spine 6V w bending [facility] Main [place] [address] [place] [address] XRay Report Signed Patient: Breann Starks MR#: [id number] 171 : 1945 Acct:[id number] Age/Sex: 77 / F ADM Date: 11/16/23 Loc: XD Room: Type: [facility] [facility] Attending Dr: Kayley PASCALC Copies to: THANG [...] Benton Jr., D.O.11/16/2023 4:37 PM Dictation Location: [place] [address] Transcribed By: [facility] 11/16/23 1637 Dictated By: Francisco J Benton Jr, DO 11/16/23 1636 Signed By: 11/16/23 163 Normal [facility] MR lumbar spine wo conon MR lumbar spine wo con [facility] [place] [address] [place] [address] XRay Report Signed Patient: Breann Starks MR#: [id number] : 1945 Acct:[id number] Age/Sex: 77 / F ADM Date: 10/11/23 Loc: MR Room: Type: [facility] Attending Dr: Claire DESIR Copies to: THANG Porter Ordering Provider: THANG Porter Date of Service: 10/11/23 MR/MR lumbar spine wo con: LUMBAR RADICULPATHY ([id number]) XR/XR pre/post mri xray: LUMBAR RADICULPATHY CLINICAL [...] Eleanor Reece M.D.10/11/2023 4:10 PM Dictation Location: [place] [address] Transcribed By: [facility] 10/11/23 1610 Dictated By: Eleanor Reece MD 10/11/23 1133 Signed By: 10/11/23 1610 Normal [facility] XR LSPINE W_OBLS AND FLEX_EX [...] by: PAULA BROWN Date: 2023-01-31 11:34 Normal [facility] LIPID PROFILEon 12-16-2022 CHOL-HDL RATIO NORM SEE BELOW Normal The [facility] Comment on above: Result Comment: 3.3 - 4.4 LOW RISK 4.4 - 7.1 AVERAGE RISK 7.1 - 11.0 MODERATE RISK >11.0 HIGH RISK Performed By: #### L IPID ####[facility] [address] [place], [place] [address]OeMeena Smith Cholesterol [Mass/Vol] 105 mg/dL Normal <=200 [facility] Comment on above: Performed By: #### L IPID ####[facility] Arcgfdsxzn5614 [place], [place] [address]ZsMeena Smith Cholesterol in HDL [Mass/Vol] 48 mg/dL Normal 40-60 [facility] Comment on above: Performed By: #### L IPID ####[facility] [address]tzx[address] [place] [address]Dr. Erasmo Smith Cholesterol in LDL [Mass/Vol] 48.2 mg/dL Normal [facility] Comment on above: Performed By: #### L IPID ####[facility] Azrdahorex[address]1 [place] [id number]. Erasmo Luis Cholesterol.total/Chol esterol in HDL [Mass ratio] 2.2 {ratio} Normal [facility] Comment on above: Performed By: #### L IPID ####[facility] Rictiiwy[address]76 [place] [address]Dr. Erasmo Smith HDL NORMAL > or = 60 mg/dl - LOW CARDIOVASCULAR RISK <40 mg/dl - HIGH CARDIOVASCULAR RISK Normal [facility] Comment on above: Performed By: #### L IPID ####[facility] [address]ikkt[address] [place], [place] [address]Dr. Erasmo Smith LDL CALC NORMAL SEE BELOW Normal [facility] Comment on above: Result Comment: <100 mg/dl OPTIMAL 100 - 129 mg/dl NEAR OR ABOVE OPTIMAL 130 - 159 mg/dl BORDERLINE HIGH 160 - 189 mg/dl HIGH >190 mg/dl VERY HIGH Performed By: #### L IPID ####[facility] Iebnrdhlza60[address] [place] [id number]. Erasmo Smith Triglyceride [Mass/Vol] 44 mg/dL Normal <=150 [facility] Comment on above: Performed By: #### L IPID ####[facility] Eswyokyxvo8257 [place] [id number]. Erasmo Smith VLDL CALC 8.8 mg/dL Normal [facility] Comment on above: Performed By: #### L IPID ####[facility] Kjpjbxjmjq1386 [place] [id number]. Erasmo Smith CULTURE BLOODon 12-04-2022 Microscopic examination [...] Trimethoprim/Sulfame thoxazole <=20 S F Normal [facility] Comment on above: Performed By: #### B LDCX1 ####[facility] J[address] [place], [place] [address]Dr. Erasmo Smith BNPon 12-03-2022 Natriuretic peptide B (Bld) [Mass/Vol] 413.0 pg/mL Normal <=1,800.0 [facility] Comment on above: Performed By: #### B JERKER #### [facility] [address] [place] [address] Dr. Erasmo Smith CBC AUTO DIFFon 12-03-2022 BASO # 0.0 103/ul Normal 0.0-0.1 [facility] Comment on above: Performed By: #### C BC ####[facility] Tqqyndv[address] [place], [place] [address]Dr. Erasmo Smith Basophils/100 WBC (Bld) 0.2 % Normal 0.2-2.0 [facility] Comment on above: Performed By: #### C BC ####[facility] Etgtmrvsi[address] [place], [place] [address]Dr. Erasmo Smith EO # 0.4 103/ul Normal 0.0-0.7 [facility] Comment on above: Performed By: #### C BC ####[facility] Amgmszktvw[address] [place], [place] [address]Dr. Erasmo Smith Eosinophils/100 WBC (Bld) 2.1 % Normal 0.9-7.0 [facility] Comment on above: Performed By: #### C BC ####[facility] Lwyrplykeq[address] [place], [place] [address]Dr. Erasmo Smith Erythrocyte distribution width (RBC) [Ratio] 17.2 % Critically high 11.0-15.0 [facility] Comment on above: Performed By: #### C BC ####[facility] Aethyxmuem[address] [place] [address]Dr. Erasmo Smith Hematocrit (Bld) [Volume fraction] 29.2 % Critically low 36.0-48.0 [facility] Comment on above: Performed By: #### C BC ####[facility] H[address] [place], [place] [address]DrMeena Heavenean Smith Hemoglobin (Bld) [Mass/Vol] 9.5 g/dL Critically low 12.0-16.0 [facility] Comment on above: Performed By: #### C BC ####[facility] Kbcwrncmpf[address] [place], [place] [address]Dr. Erasmo Smith IG # 0.13 10e3/ul Critically high 0.00-0.03 [facility] Comment on above: Performed By: #### C BC ####[facility] Gkmphvetan[address] [place], [place] [address]Dr. Erasmo Smith IG % 0.8 % Critically high 0.0-0.5 The [facility] Comment on above: Performed By: #### C BC ####[facility] [address]te[address] [place], [place] [address]DrMeena Smith LYMPH # 1.8 103/ul Normal 1.2-3.8 [facility] Comment on above: Performed By: #### C BC ####[facility] T[address]bx[address] [place], [place] [address]DrMeena Smith Lymphocytes/100 WBC (Bld) 10.3 % Critically low 20.5-60.0 [facility] Comment on above: Performed By: #### C BC ####[facility] [address]ys[address] [place], [place] [address]DrMeena Smith MANUAL DIFF REQ NO Normal The [facility] Comment on above: Performed By: #### C BC ####[facility] Itbrade[address] [place], [place] [address]DrMeena Smith MCH (RBC) [Entitic mass] 25.7 pg Critically low 26.7-34.0 [facility] Comment on above: Performed By: #### C BC ####[facility] [address]qc[address]beo[address] [place] [id number]. Erasmo Smith MCHC (RBC) [Mass/Vol] 32.5 g/dL Normal 29.9-35.2 [facility] Comment on above: Performed By: #### C BC ####[facility] Ttkaxeuazc3621 [place] [id number]. Erasmo Smith MCV (RBC) [Entitic vol] 79.1 fL Critically low 81.0-99.0 [facility] Comment on above: Performed By: #### C BC ####[facility] Ltdgcogwcm5754 [place] [id number]. Ersamo Smith MONO # 1.5 103/ul Critically high 0.3-0.8 The [facility] Comment on above: Performed By: #### C BC ####[facility] Jiogypqrlb0481 [place] [id number]. Erasmo Smith Monocytes/100 WBC (Bld) 8.7 % Normal 1.7-12.0 [facility] Comment on above: Performed By: #### C BC ####[facility] Qwhnlwepgk5501 [place] [id number] Erasmo Smith NEUT # 13.4 103/ul Critically high 1.4-6.5 The [facility] Comment on above: Performed By: #### C BC ####[facility] Tjqgyyzncz5099 [place] [id number]. Erasmo Luis Neutrophils/100 WBC (Bld) 77.9 % Critically high 43.0-75.0 [facility] Comment on above: Performed By: #### C BC ####[facility] [address]nlk[address]19[address] [place] [id number]. Erasmo Smith Platelet mean volume (Bld) [Entitic vol] 9.3 fL Critically low 9.5-13.5 [facility] Comment on above: Performed By: #### C BC ####[facility] [address] [place], [place] [address]Qa. Erasmo Smith PLT 205 103/ul Normal 150-450 [facility] Comment on above: Performed By: #### C BC ####[facility] [address] [place], [place] [address]Rv. Erasmo Smith RBC 3.69 106/ul Critically low 4.20-5.40 [facility] Comment on above: Performed By: #### C BC ####[facility] Accuorizlu[address] [place] [id number]. Erasmo Smith WBC 17.2 103/ul Critically high 4.0-11.0 [facility] Comment on above: Performed By: #### C BC ####[facility] Yxwvnkykld0241 [place] [id number]. Erasmo Smith MAGNESIUMon 12-03-2022 Magnesium [Mass/Vol] 1.9 mg/dL Normal 1.8-2.4 [facility] Comment on above: Performed By: #### B JERKER #### [facility] [address] [place] [address] [address] Erasmo Smith PROF 14(COMP METB)on 023 Albumin [Mass/Vol] 2.6 g/dL Critically low 3.4-5.0 [facility] Comment on above: Performed By: #### B JERKER #### [facility] [address] [place] [address] [address] Erasmo Smith Albumin/Globulin [Mass ratio] 0.6 {ratio} Normal [facility] Comment on above: Performed By: #### B JERKER #### [facility] [address] [place] [address] [address] Erasmo Smith ALP [Catalytic activity/Vol] 123 U/L Critically high 46-116 [facility] Comment on above: Performed By: #### B JERKER #### [facility] [address] [place] [address] [address] Erasmo Smith ALT [Catalytic activity/Vol] 28 U/L Normal 14-59 [facility] Comment on above: Performed By: #### B JERKER #### [facility] [address] [place] [address] Dr. Erasmo Smith Anion gap [Moles/Vol] 9.4 mmol/L Normal [facility] Comment on above: Performed By: #### B JERKER #### [facility] [address] [place] [address] Dr. Erasmo Smith AST [Catalytic activity/Vol] 21 U/L Normal 15-37 [facility] Comment on above: Performed By: #### B JERKER #### [facility] [address] [place] [address] Dr. Erasmo Smith Bilirubin [Mass/Vol] 0.3 mg/dL Normal 0.2-1.0 [facility] Comment on above: Performed By: #### B JERKER #### [facility] [address] [place] [address] Dr. Erasmo Smith Calcium [Mass/Vol] 8.3 mg/dL Critically low 8.5-10.1 [facility] Comment on above: Performed By: #### B JERKER #### [facility] [address] [place] [address] Dr. Erasmo Smith Chloride [Moles/Vol] 105 mmol/L Normal 98-107 [facility] Comment on above: Performed By: #### B JERKER #### [facility] [address] [place] [address] Dr. Erasmo Smith CO2 [Moles/Vol] 27.1 mmol/L Normal 21.0-32.0 [facility] Comment on above: Performed By: #### B JERKER #### [facility] [address] [place] [address] Dr. Erasmo Smith Creatinine [Mass/Vol] 0.55 mg/dL Normal 0.55-1.02 [facility] Comment on above: Performed By: #### B JERKER #### [facility] [address] [place] [address] Dr. Erasmo Smith EGFR-AF CITIZEN [place] >60 Normal >=60 [facility] Comment on above: Performed By: #### B JERKER #### [facility] [address] [place] [address] Dr. Erasmo Smith EGFR-NON AF CITIZEN OF [place] >60 Normal >=60 [facility] Comment on above: Performed By: #### B JERKER #### [facility] [address] [place] [address] Dr. Erasmo Smith Globulin (S) [Mass/Vol] 4.0 g/dL Normal [facility] Comment on above: Performed By: #### B JERKER #### [facility] [address] [place] [address] Dr. Erasmo Smith Glucose [Mass/Vol] 132 mg/dL Critically high 74-106 [facility] Comment on above: Performed By: #### B JERKER #### [facility] [address] [place] [address] Dr. Erasmo Smith Potassium [Moles/Vol] 3.5 mmol/L Normal 3.5-5.1 [facility] Comment on above: Performed By: #### B JERKER #### [facility] [address] [place] [address] Dr. Erasmo Smith Protein [Mass/Vol] 6.6 g/dL Normal 6.4-8.2 [facility] Comment on above: Performed By: #### B JERKER #### [facility] [address] [place] [address] Dr. Erasmo Smith Sodium [Moles/Vol] 138 mmol/L Normal 136-145 [facility] Comment on above: Performed By: #### B JERKER #### [facility] [address] [place] [address] Dr. Erasmo Smith Urea nitrogen [Mass/Vol] 24.0 mg/dL Critically high 7.0-18.0 [facility] Comment on above: Performed By: #### B JERKER #### [facility] [address] [place] [address] Dr. Erasmo Smith Urea nitrogen/Creatinine [Mass ratio] 43.6 mg/mg Normal [facility] Comment on above: Performed By: #### B JERKER #### [facility] [address] [place], [place] [address] Dr. Erasmo Smith PROTIMEon 12-03-2022 INR Coag (PPP) [Relative time] 4.41 {INR} Critically high [facility] Comment on above: Performed By: #### C MREP #### [facility] [address] [place] [address] [address] Erasmo Smith INR GUIDELINES SEE BELOW Normal The [facility] Comment on above: Result Comment: ABNER RED INR: 2.0 - 3.0 CONDITIONS NOT LISTED BELOW 2.5 - 3.5 FOR PROSTHETIC HEART VALVE REPLACEMENT 2.5 - 3.5 RECURRENT THROMBOSIS Performed By: #### C MREP #### [facility] [address] [place] [address] [address] Erasmo Smith PT Coag (PPP) [Time] 43.0 s Critically high 9.0-11.6 [facility] Comment on above: Performed By: #### C MREP #### [facility] [address] [place] [address] Dr. Erasmo Smith BLOOD CULTURE ID PANELon A. baumannii Not detected Normal NOT DETECTED [facility] Comment on above: Performed By: #### B CID2 ####[facility] [address]ec[address] [place] [address]Dr. Erasmo Smith Bacteriodes fragilis Not detected Normal NOT DETECTED [facility] Comment on above: Performed By: #### B CID2 ####[facility] Femfzpxvem[address] [place] [address]Dr. Erasmo Smith BCID CONTROLS PASSED Normal The [facility] Comment on above: Performed By: #### B CID2 ####[facility] Wrjvmmqkrt[address] [place] [address]Dr. Erasmo Smith BCIDBTHD BLOOD CULTURE BOTTLE INFORMATION Normal [facility] Comment on above: Performed By: #### B CID2 ####[facility] Zhhyjmwyhy[address] [place] [address]Dr. Erasmo Smith BCIDHD1 ANTIMICROBIAL RESISTANCE GENES Normal [facility] Comment on above: Performed By: #### B CID2 ####[facility] Hqkzpkobpz32[address] [place] [address]Dr. Erasmo Smith BCIDHD2 SEE BELOW Normal [facility] Comment on above: Result Comment: Note : Antimicrobial resitance can occur via multiple mechanisms. A Not Detected result for the [employer] antomicrobial resistance gene assays does not indicate antimicrobial susceptibility. Subculturing is required for species identification and susceptibility testing of isolates. Performed By: #### B CID2 ####[facility] Txfckjbysh[address] [place] [address]Dr. Erasmo Smith BCIDHD3 Positive Normal [facility] Comment on above: Performed By: #### B CID2 ####[facility] [address]arp[address]cv[address] [place], [place] [address]Dr. Erasmo Smith BCIDHD4 Negative Normal [facility] Comment on above: Performed By: #### B CID2 ####[facility] [address]llffe[address] [place], [place] [address]Dr. Erasmo Smith BCIDHD5 YEAST Normal [facility] Comment on above: Performed By: #### B CID2 ####[facility] Qkaixqqyxf[address] [place], [place] [address]Dr. Erasmo Smith Bottle Set: Set 1 Normal [facility] Comment on above: Performed By: #### B CID2 ####[facility] Splwcjrznw[address] [place], [place] [address]Dr. Erasmo Smith Bottle: Anaerobic Normal [facility] Comment on above: Performed By: #### B CID2 ####[facility] Djqisniqtg[address] [place], [place] [address]Dr. Erasmo Smith C. neoformans/gattii Not detected Normal NOT DETECTED [facility] Comment on above: Performed By: #### B CID2 ####[facility] [address]ecpx[address]rv[address] [place], [place] [address]Dr. Yiean Smith Naye albicans Not detected Normal NOT DETECTED [facility] Comment on above: Performed By: #### B CID2 ####[facility] Bnwnsbfcsp[address] [place], [place] [address]Dr. Erasmo Smith Naye auris Not detected Normal NOT DETECTED The [facility] Comment on above: Performed By: #### B CID2 ####[facility] Qnauhaoefx[address] [place], [place] [address]Dr. Erasmo Smith Naye glabrata Not detected Normal NOT DETECTED The [facility] Comment on above: Performed By: #### B CID2 ####[facility] Npuzizbmfz2776 [place] [address]Dr. Erasmo Smith Naye Krusei Not detected Normal NOT DETECTED [facility] Comment on above: Performed By: #### B CID2 ####[facility] Hwnbrstsrs2295 [place] [id number]. Erasmo Smith Naye Parapsilosis Not detected Normal NOT DETECTED [facility] Comment on above: Performed By: #### B CID2 ####[facility] Xjkphtymvc4[address] [place] [address]Dr. Erasmo Smith Naye Tropicalis Not detected Normal NOT DETECTED [facility] Comment on above: Performed By: #### B CID2 ####[facility] [address]zvrju[address] [place], [place] [address]Dr. Heavenean Smith CTX-M Resistant Gene Not Applicable Normal NOT DETECTE D [facility] Comment on above: Performed By: #### B CID2 ####[facility] Shztdracoa[address] [place], [place] [address]Dr. Erasmo Smith E. Cloacae complex Not detected Normal NOT DETECTED [facility] Comment on above: Performed By: #### B CID2 ####[facility] Ampqpkicwm[address] [place], [place] [address]Dr. Erasmo Smith E. faecalis Not detected Normal NOT DETECTED The [facility] Comment on above: Performed By: #### B CID2 ####[facility] Zxrolmipmh[address] [place], [place] [address]Dr. Heavenean Smith E. faecium Not detected Normal NOT DETECTED The [facility] Comment on above: Performed By: #### B CID2 ####[facility] Bjaltvlfgy02[address] [place], [place] [address]Dr. Erasmo Smith Enterobacteriaceae Detected Critically abnormal NOT DETECTED [facility] Comment on above: Performed By: #### B CID2 ####[facility] Akwdlybtcd[address] [place], [place] [address]Dr. Erasmo Smith Escherichia coli Detected Critically abnormal NOT DETECTED [facility] Comment on above: Performed By: #### B CID2 ####[facility] Srdsxcxmzn0825 [place] [address]Dr. Erasmo Smith H. influenzae Not detected Normal NOT DETECTED The [facility] Comment on above: Performed By: #### B CID2 ####[facility] Rnawwcjuhj9014 [place] [address]Dr. Erasmo Smith IMP Resistant Gene Not Applicable Normal NOT DETECTED [facility] Comment on above: Performed By: #### B CID2 ####[facility] Uhvnebjocl[address] [place], [place] [address]Dr. Erasmo Smith K. oxytoca Not detected Normal NOT DETECTED [facility] Comment on above: Performed By: #### B CID2 ####[facility] Aexbpyfdht[address] [place], [place] [address]Dr. Erasmo Smith K. pneumoniae Not detected Normal NOT DETECTED The [facility] Comment on above: Performed By: #### B CID2 ####[facility] Uljjnbuqaj[address] [place], [place] [address]Dr. Erasmo Smith Klebsiella aerogenes Not detected Normal NOT DETECTED [facility] Comment on above: Performed By: #### B CID2 ####[facility] Ziaurzofdr[address] [place], [place] [address]Dr. Erasmo Smith KPC Resistant Gene Not detected Normal NOT DETECTED [facility] Comment on above: Performed By: #### B CID2 ####[facility] Mdfgpijlwz[address] [place], [place] [address]Dr. Erasmo Smith List. monocytogenes Not detected Normal NOT DETECTED [facility] Comment on above: Performed By: #### B CID2 ####[facility] Xaqovdcvkx[address] [place], [place] [address]Dr. Erasmo Smith Mcr-1 Resistant Gene Not Applicable Normal NOT DETECTE D [facility] Comment on above: Performed By: #### B CID2 ####[facility] Oefbyjwjkg[address] [place], [place] [address]Dr. Erasmo Smith mecA/C Not Applicable Normal NOT DETECTED [facility] Comment on above: Performed By: #### B CID2 ####[facility] Scnpslwwmt[address] [place], [place] [address]Dr. Erasmo Smith mecA/C MREJ Not Applicable Normal NOT DETECTED [facility] Comment on above: Performed By: #### B CID2 ####[facility] Kfoxjsockd94[address] [place], [place] [address]Dr. Erasmo Smith N. meningitidis Not detected Normal NOT DETECTED The [facility] Comment on above: Performed By: #### B CID2 ####[facility] Jcylmiepwv[address] [place], [place] [address]Dr. Erasmo Smith NDM Resistant Gene Not Applicable Normal NOT DETECTED [facility] Comment on above: Performed By: #### B CID2 ####[facility] Gztefbcbru[address] [place], [place] [address]Dr. Erasmo Smith Oxa-48-like Not Applicable Normal NOT DETECTED [facility] Comment on above: Performed By: #### B CID2 ####[facility] Gjyzfvtfmq[address] [place], [place] [address]Dr. Erasmo Smith Proteus Not detected Normal NOT DETECTED [facility] Comment on above: Performed By: #### B CID2 ####[facility] Aposxttddw[address] [place], [place] [address]Dr. Erasmo Smith Pseud. aeruginosa Not detected Normal NOT DETECTED [facility] Comment on above: Performed By: #### B CID2 ####[facility] Akohdpwpen040[address] [place], [place] [address]Dr. Erasmo Smith S. maltophilia Not detected Normal NOT DETECTED [facility] Comment on above: Performed By: #### B CID2 ####[facility] Aqemhokhuc[address] [place], [place] [address]Dr. Erasmo Smith Salmonella Not detected Normal NOT DETECTED [facility] Comment on above: Performed By: #### B CID2 ####[facility] Rsjaohyfnb[address] [place], [place] [address]Dr. Erasmo Smith Seratia marcescens Not detected Normal NOT DETECTED [facility] Comment on above: Performed By: #### B CID2 ####[facility] Vgmzcpaofv[address] [place], [place] [address]Dr. Erasmo Smith Site: l ac Normal [facility] Comment on above: Performed By: #### B CID2 ####[facility] Ocsxrczbtr[address] [place], [place] [address]Dr. Erasmo Smith Staph. aureus Not detected Normal NOT DETECTED The [facility] Comment on above: Performed By: #### B CID2 ####[facility] Fcwausferw[address] [place], [place] [address]Dr. Erasmo Smith Staph. epidermidis Not detected Normal NOT DETECTED [facility] Comment on above: Performed By: #### B CID2 ####[facility] Httuarskbi[address] [place], [place] [address]Dr. Erasmo Smith Staph. lugdunensis Not detected Normal NOT DETECTED [facility] Comment on above: Performed By: #### B CID2 ####[facility] Byfljdzvpw[address] [place], [place] [address]Dr. Erasmo Smith Staphylococcus Not detected Normal NOT DETECTED [facility] Comment on above: Performed By: #### B CID2 ####[facility] Rebxaabzha[address] [place], [place] [address]Dr. Erasmo Smith Strep. agalactiae Not detected Normal NOT DETECTED [facility] Company Comment on above: Performed By: #### B CID2 ####[facility] [address] [place], [place] [address]Dr. Erasmo Smith Strep. pneumoniae Not detected Normal NOT DETECTED [facility] Comment on above: Performed By: #### B CID2 ####[facility] Vhbspj[address] [place], [place] [address]Dr. Erasmo Smith Strep. pyogenes Not detected Normal NOT DETECTED [facility] Comment on above: Performed By: #### B CID2 ####[facility] J[address]gzznf[address] [place], [place] [address]Dr. Erasmo Smith Streptococcus Not detected Normal NOT DETECTED The [facility] Comment on above: Performed By: #### B CID2 ####[facility] M[address] [place], [place] [address]Dr. Erasmo Smith Fran/B Resist. Gene Not detected Normal NOT DETECTED T [facility] Comment on above: Performed By: #### B CID2 ####[facility] Ovkarnpidm[address] [place], [place] [address]DrMeena Smith VIM Resistant Gene Not Applicable Normal NOT DETECTED [facility] Comment on above: Performed By: #### B CID2 ####[facility] Or[address]pe[address] [place], [place] [address]Dr. Erasmo Smith BNPon 12-02-2022 Natriuretic peptide B (Bld) [Mass/Vol] 1059.0 pg/mL Normal <=1,800.0 [facility] Comment on above: Performed By: #### B JERKER #### [facility] [address] [place] [address] Dr. Erasmo Smith CBC AUTO DIFFon 12-02-2022 BASO # 0.0 103/ul Normal 0.0-0.1 [facility] Comment on above: Performed By: #### C BC ####[facility] I[address] [place], [place] [address]DrMeena Smith Basophils/100 WBC (Bld) 0.2 % Normal 0.2-2.0 [facility] Comment on above: Performed By: #### C BC ####[facility] [address] [place], [place] [address]DrMeena Smith EO # 0.0 103/ul Normal 0.0-0.7 [facility] Comment on above: Performed By: #### C BC ####[facility] O[address]fastow[address] [place], [place] [address]DrMeena Smith Eosinophils/100 WBC (Bld) 0.0 % Critically low 0.9-7.0 [facility] Comment on above: Performed By: #### C BC ####[facility] Dpwatytuq[address] [place], [place] [address]DrMeena Smith Erythrocyte distribution width (RBC) [Ratio] 17.3 % Critically high 11.0-15.0 [facility] Comment on above: Performed By: #### C BC ####[facility] [address] [place] [address]Dr. Erasmo Smith Hematocrit (Bld) [Volume fraction] 31.4 % Critically low 36.0-48.0 [facility] Comment on above: Performed By: #### C BC ####[facility] [address] [place] [address]Dr. Heavenean Luis Hemoglobin (Bld) [Mass/Vol] 10.0 g/dL Critically low 12.0-16.0 [facility] Comment on above: Performed By: #### C BC ####[facility] [address] [place] [address]Dr. Erasmo Smith IG # 0.06 10e3/ul Critically high 0.00-0.03 [facility] Comment on above: Performed By: #### C BC ####[facility] [address] [place] [address]Dr. Erasmo Smith IG % 0.4 % Normal 0.0-0.5 [facility] Comment on above: Performed By: #### C BC ####[facility] [address] [place] [address]Dr. Erasmo Smith LYMPH # 1.3 103/ul Normal 1.2-3.8 [facility] Comment on above: Performed By: #### C BC ####[facility] [address] [place] [address]Dr. Erasmo Smith Lymphocytes/100 WBC (Bld) 8.1 % Critically low 20.5-60.0 [facility] Comment on above: Performed By: #### C BC ####[facility] [address] [place] [address]Dr. Erasmo Smith MANUAL DIFF REQ NO Normal [facility] Comment on above: Performed By: #### C BC ####[facility] [address] [place] [address]Dr. Erasmo Smith MCH (RBC) [Entitic mass] 25.6 pg Critically low 26.7-34.0 [facility] Comment on above: Performed By: #### C BC ####[facility] [address] [place], [place] [id number]. Erasmo Smith MCHC (RBC) [Mass/Vol] 31.8 g/dL Normal 29.9-35.2 [facility] Comment on above: Performed By: #### C BC ####[facility] [address] [place] [id number]. Erasmo Smith MCV (RBC) [Entitic vol] 80.3 fL Critically low 81.0-99.0 [facility] Comment on above: Performed By: #### C BC ####[facility] [address] [place] [id number]. Erasmo Smith MONO # 0.6 103/ul Normal 0.3-0.8 [facility] Comment on above: Performed By: #### C BC ####[facility] [address] [place] [id number]. Erasmo Smith Monocytes/100 WBC (Bld) 3.7 % Normal 1.7-12.0 [facility] Comment on above: Performed By: #### C BC ####[facility] [address]ks[address] [place], [place] [address]Dr. Erasmo Smith NEUT # 14.5 103/ul Critically high 1.4-6.5 [facility] Comment on above: Performed By: #### C BC ####[facility] [address] [place] [id number]. Erasmo Smith Neutrophils/100 WBC (Bld) 87.6 % Critically high 43.0-75.0 [facility] Comment on above: Performed By: #### C BC ####[facility] [address] [place] [id number]. Erasmo Smith Platelet mean volume (Bld) [Entitic vol] 10.0 fL Normal 9.5-13.5 [facility] Comment on above: Performed By: #### C BC ####[facility] [address] [place] [id number]. Erasmo Smith PLT 206 103/ul Normal 150-450 [facility] Comment on above: Performed By: #### C BC ####[facility] [address] [place], [place] [address]Up. Erasmo Smith RBC 3.91 106/ul Critically low 4.20-5.40 [facility] Comment on above: Performed By: #### C BC ####[facility] [address] [place], [place] [address]KxMeena Smith WBC 16.5 103/ul Critically high 4.0-11.0 [facility] Comment on above: Performed By: #### C BC ####[facility] [address]s28[address] [place], [place] [address]Ue. Erasmo Smith ECHOCARDIO M/2D COMPLETEon 0 12-02-2022 ECHOCARDIO M/2D COMPLETE Patient: BREANN STARKS Exam Date: 12/02/2022 : 1945 Gender:F Ordering : KAYLEY HOLMAN . Admission #: [id number] Family : DR LUISANA JOHNSON . Order #: [id number] CLICK HERE TO VIEW EXAM ECHOCARDIOGRAM REPORT [...] M.D. on 12/02/2022 at 21:58 Normal [facility] MAGNESIUMon 12-02-2022 Magnesium [Mass/Vol] 2.0 mg/dL Normal 1.8-2.4 [facility] Comment on above: Performed By: #### B JERKER #### [facility] [address] [place], [place] [address] Dr. Erasmo Smith PROF 14(COMP METB)on 023 Albumin [Mass/Vol] 2.7 g/dL Critically low 3.4-5.0 [facility] Comment on above: Performed By: #### B JERKER #### [facility] [address] [place] [address] Dr. Erasmo Smith Albumin/Globulin [Mass ratio] 0.6 {ratio} Normal [facility] Comment on above: Performed By: #### B JERKER #### [facility] [address] [place] [address] Dr. Erasmo Smith ALP [Catalytic activity/Vol] 128 U/L Critically high 46-116 [facility] Comment on above: Performed By: #### B JERKER #### [facility] [address] [place] [address] Dr. Erasmo Smith ALT [Catalytic activity/Vol] 34 U/L Normal 14-59 [facility] Comment on above: Performed By: #### B JERKER #### [facility] [address] [place] [address] Dr. Erasmo Smith Anion gap [Moles/Vol] 10.6 mmol/L Normal [facility] Comment on above: Performed By: #### B JERKER #### [facility] [address] [place] [address] Dr. Erasmo Smith AST [Catalytic activity/Vol] 27 U/L Normal 15-37 [facility] Comment on above: Performed By: #### B JERKER #### [facility] [address] [place] [address] Dr. Erasmo Smith Bilirubin [Mass/Vol] 0.5 mg/dL Normal 0.2-1.0 [facility] Comment on above: Performed By: #### B JERKER #### [facility] [address] [place] [address] Dr. Erasmo Smith Calcium [Mass/Vol] 8.4 mg/dL Critically low 8.5-10.1 [facility] Comment on above: Performed By: #### B JERKER #### [facility] [address] [place] [address] Dr. Erasmo Smith Chloride [Moles/Vol] 104 mmol/L Normal 98-107 [facility] Comment on above: Performed By: #### B JERKER #### [facility] [address] [place] [address] Dr. Erasmo Smith CO2 [Moles/Vol] 26.2 mmol/L Normal 21.0-32.0 [facility] Comment on above: Performed By: #### B JERKER #### [facility] [address] [place] [address] Dr. Erasmo Smith Creatinine [Mass/Vol] 0.52 mg/dL Critically low 0.55-1.02 [facility] Comment on above: Performed By: #### B JERKER #### [facility] [address] [place] [address] Dr. Erasmo Smith EGFR-AF CITIZEN OF [place] >60 Normal >=60 [facility] Comment on above: Performed By: #### B JERKER #### [facility] [address] [place] [address] Dr. Erasmo Smith EGFR-NON AF CITIZEN OF [place] >60 Normal >=60 [facility] Comment on above: Performed By: #### B JERKER #### [facility] [address] [place] [address] Dr. Erasmo Smith Globulin (S) [Mass/Vol] 4.3 g/dL Normal [facility] Comment on above: Performed By: #### B JERKER #### [facility] [address] [place] [address] Dr. Erasmo Smith Glucose [Mass/Vol] 135 mg/dL Critically high 74-106 [facility] Comment on above: Performed By: #### B JERKER #### [facility] [address] [place] [address] Dr. Erasmo Smith Potassium [Moles/Vol] 3.8 mmol/L Normal 3.5-5.1 [facility] Comment on above: Performed By: #### B JERKER #### [facility] [address] [place] [address] Dr. Erasmo Smith Protein [Mass/Vol] 7.0 g/dL Normal 6.4-8.2 [facility] Comment on above: Performed By: #### B JERKER #### [facility] [address] [place] [address] [address] Erasmo Smith Sodium [Moles/Vol] 137 mmol/L Normal 136-145 [facility] Comment on above: Performed By: #### B JERKER #### [facility] [address] [place] [address] [address] Erasmo Smith Urea nitrogen [Mass/Vol] 16.0 mg/dL Normal 7.0-18.0 [facility] Comment on above: Performed By: #### B JERKER #### [facility] [address] [place] [address] Dr. Erasmo Smith Urea nitrogen/Creatinine [Mass ratio] 30.8 mg/mg Normal [facility] Comment on above: Performed By: #### B JERKER #### [facility] [address] [place] [address] Dr. Erasmo Smith PROTIMEon 12-02-2022 INR Coag (PPP) [Relative time] 4.39 {INR} Critically high [facility] Comment on above: Performed By: #### P T #### [facility] [address] [place] [address] Dr. Erasmo Smith INR GUIDELINES SEE BELOW Normal [facility] Comment on above: Result Comment: ABNER RED INR: 2.0 - 3.0 CONDITIONS NOT LISTED BELOW 2.5 - 3.5 FOR PROSTHETIC HEART VALVE REPLACEMENT 2.5 - 3.5 RECURRENT THROMBOSIS Performed By: #### P T #### [facility] [address] [place] [address] Dr. Erasmo Smith PT Coag (PPP) [Time] 42.8 s Critically high 9.0-11.6 [facility] Comment on above: Performed By: #### P T #### [facility] [address] [place] [address] Dr. Erasmo Smith UA RANDOM W/MICROSCOPICon BACTERIA NONE SEEN Normal NONE SEEN [facility] Comment on above: Performed By: #### U AMIC ####[facility] [address] [place] [address]Dr. Erasmo Smith Bilirubin Ql (U) Negative Normal NEGATIVE [facility] Comment on above: Performed By: #### U AMIC ####[facility] [address] [place], [place] [address]Dr. Erasmo Smith CAST NONE SEEN Normal NONE SEEN [facility] Comment on above: Performed By: #### U AMIC ####[facility] T[address]rixt[address] [place], [place] [address]Dr. Erasmo Smith Clarity (U) CLEAR Normal CLEAR [facility] Comment on above: Performed By: #### U AMIC ####[facility] [address] [place], [place] [address]Dr. Erasmo Smith Color (U) YELLOW Normal YELLOW [facility] Comment on above: Performed By: #### U AMIC ####[facility] Y[address] [place], [place] [address]Dr. Erasmo Smith Crystals LM Nom (Urine sed) NONE SEEN Normal NONE SEEN [facility] Comment on above: Performed By: #### U AMIC ####[facility] O[address]ccurit[address] [place], [place] [address]Dr. Erasmo Smith Epithelial cells LM Ql (Urine sed) RARE Normal NONE SEEN /RARE [facility] Comment on above: Performed By: #### U AMIC ####[facility] K[address]js[address] [place], [place] [address]Dr. Erasmo Smith Glucose Ql (U) Negative Normal NEGATIVE [facility] Comment on above: Performed By: #### U AMIC ####[facility] Opnzrnedpg[address] [place], [place] [address]Dr. Erasmo Smith Hemoglobin Ql (U) SMALL Abnormal NEGATIVE [facility] Comment on above: Performed By: #### U AMIC ####[facility] [address] [place], [place] [address]Dr. Erasmo Smith Ketones Ql (U) 15 mg/dl Abnormal NEGATIVE [facility] Comment on above: Performed By: #### U AMIC ####[facility] Xtkvf[address]foe[address] [place], [place] [address]Dr. Erasmo Smith LEUKOCYTES Negative Normal NEGATIVE [facility] Comment on above: Performed By: #### U AMIC ####[facility] [address] [place] [address]Dr. Erasmo Smith MUCOUS NONE SEEN Normal NONE SEEN [facility] Comment on above: Performed By: #### U AMIC ####[facility] [address] [place] [address]Dr. Erasmo Smith Nitrite Ql (U) Negative Normal NEGATIVE [facility] Comment on above: Performed By: #### U AMIC ####[facility] [address] [place] [address]Dr. Erasmo Smith pH (U) 6.0 [pH] Normal 5-9 [facility] Comment on above: Performed By: #### U AMIC ####[facility] [address] [place] [address]Dr. Erasmo Smith RBC 0-2 Normal 0-2 [facility] Comment on above: Performed By: #### U AMIC ####[facility] [address] [place], [place] [address]Dr. Erasmo Smith SPEC GRAVITY 1.025 Normal 1.005-<=1.02 5 [facility] Comment on above: Performed By: #### U AMIC ####[facility] [address] [place] [address]Dr. Erasmo Smith UA PROTEIN TRACE Normal NEGATIVE/ TRACE [facility] Comment on above: Performed By: #### U AMIC ####[facility] [address] [place] [address]Dr. Erasmo Smith Urobilinogen Qn (U) 4 {Shraddha'U}/dL Abnormal 0.2 - 1.0 [facility] Comment on above: Performed By: #### U AMIC ####[facility] [address] [place], [place] [address]Dr. Erasmo Smith WBC 0-2 Abnormal NONE SEEN [facility] Comment on above: Performed By: #### U AMIC ####[facility] F[address]lsywn[address] [place], [place] [address]Dr. Erasmo Smith CARDIAC ROSA ELENA 3-6on 3 CK [Catalytic activity/Vol] 53 U/L Normal 26-192 [facility] Comment on above: Performed By: #### C MREP #### [facility] [address] [place] [address] Dr. Erasmo Smith CK.MB [Mass/Vol] 0.90 ng/mL Normal <=3.60 [facility] Comment on above: Performed By: #### C MREP #### [facility] [address] [place] [address] Dr. Erasmo Smith HSTROP 116.7 pg/mL Critically high 4.0-51.3 [facility] Comment on above: Result Comment: CUT- OFF POINTS HAVE BEEN ESTABLISHED BASED ON THE FOURTH UNIVERSAL DEFINITIONS OF MYOCARDIAL INFARCTION. THE UPPER REFERENCE LIMIT (URL) OF TROPONIN, DEFINED THE 99TH PERCENTILE OF cTnI DISTRIBUTION IN A REFERENCE POPULATION, HAS BEEN CONFIRMED THE DECISION THRESHOLD FOR UT DIAGNOSIS. Performed By: #### C MREP #### [facility] [address] [place] [address] Dr. Erasmo Smith CK [Catalytic activity/Vol] 47 U/L Normal 26-192 [facility] Comment on above: Performed By: #### B JERKER #### [facility] [address] [place] [address] Dr. Erasmo Smith CK.MB [Mass/Vol] 1.00 ng/mL Normal <=3.60 [facility] Comment on above: Performed By: #### B JERKER #### [facility] [address] [place] [address] Dr. Erasmo Smith HSTROP 154.3 pg/mL Critically high 4.0-51.3 [facility] Comment on above: Result Comment: CUT- OFF POINTS HAVE BEEN ESTABLISHED BASED ON THE FOURTH UNIVERSAL DEFINITIONS OF MYOCARDIAL INFARCTION. THE UPPER REFERENCE LIMIT (URL) OF TROPONIN, DEFINED THE 99TH PERCENTILE OF cTnI DISTRIBUTION IN A REFERENCE POPULATION, HAS BEEN CONFIRMED THE DECISION THRESHOLD FOR UT DIAGNOSIS. Performed By: #### B JERKER #### [facility] [address] [place] [address] Dr. Erasmo Smith CBC W MANUAL DIFFon 12-02-19 23 ATYPICAL LYMPH # Normal [facility] Comment on above: Performed By: #### C ANGELA #### [facility] [address] [place] [address] Dr. Erasmo Smith ATYPICAL LYMPH % Normal [facility] Comment on above: Performed By: #### C BCMAN #### [facility] [address] [place] [address] Dr. Erasmo Smith BAND # 0.6 103/ul Critically high 0.0-0.3 [facility] Comment on above: Performed By: #### C BCBLAISE #### [facility] [address] [place] [address] Dr. Erasmo Smith BAND % 3 % Normal 0-5 [facility] Comment on above: Performed By: #### C ANGELA #### [facility] [address] [place] [address] Dr. Erasmo Smith BASOM # 0.00 103/ul Normal 0.00-0.10 [facility] Comment on above: Performed By: #### C ANGELA #### [facility] [address] [place] [address] Dr. Erasmo Smith BASOM % 0.0 % Critically low 0.2-2.0 [facility] Comment on above: Performed By: #### C ANGELA #### [facility] [address] [place] [address] Dr. Erasmo Smith BLAST # Normal [facility] Comment on above: Performed By: #### C ANGELA #### [facility] [address] [place] [address] Dr. Erasmo Smith BLAST % Normal [facility] Comment on above: Performed By: #### C ANGELA #### [facility] [address] [place] [address] Dr. Erasmo Smith CORRECTED WBC Normal 4.0-11.0 [facility] Comment on above: Performed By: #### C ANGELA #### [facility] [address] [place] [address] Dr. Erasmo Smith EOS # 0.19 103/ul Normal 0.00-0.70 [facility] Comment on above: Performed By: #### C BCMAN #### [facility] [address] [place] [address] [address] Erasmo Smith EOS% 1.0 % Normal 0.9-7.0 [facility] Comment on above: Performed By: #### C BCBLAISE #### [facility] [address] [place] [address] [address] Erasmo Smith HCT 32.7 % Critically low 36.0-48.0 [facility] Comment on above: Performed By: #### C BCBLAISE #### [facility] [address] [place] [address] [address] Erasmo Smith HGB 10.5 g/dl Critically low 12.0-16.0 [facility] Comment on above: Performed By: #### C ANGELA #### [facility] [address] [address] [address] Erasmo Smith LYMPHM # 0.76 103/ul Critically low 1.20-3.80 [facility] Comment on above: Performed By: #### C ANGELA #### [facility] [address] [place] [address] [address] Erasmo Smith LYMPHM% 4.0 % Critically low 20.5-60.0 [facility] Comment on above: Performed By: #### C ANGELA #### [facility] [address] [place] [address] [address] Erasmo Smith MCH 25.9 pg Critically low 26.7-34.0 [facility] Comment on above: Performed By: #### C BCBLAISE #### [facility] [address] [place] [address] [address] Erasmo Smith MCHC 32.1 g/dl Normal 29.9-35.2 [facility] Comment on above: Performed By: #### C BCBLAISE #### [facility] [address] [place] [address] [address] Erasmo Smith MCV 80.5 fL Critically low 81.0-99.0 [facility] Comment on above: Performed By: #### C BCMAN #### [facility] [address] [address] [address] Erasmo Smith METAMYELOCYTE # Normal [facility] Comment on above: Performed By: #### Yamile MILLER #### [facility] [address] [address] [address] Erasmo Smith METAMYELOCYTE % Normal [facility] Comment on above: Performed By: #### C ANGELA #### [facility] [address] [address] [address] Erasmo Smith MONOM# 1.14 103/ul Critically high 0.30-0.80 [facility] Comment on above: Performed By: #### Yamile MILLER #### [facility] [address] [place] [address] Dr. Erasmo Smith MONOM% 6.0 % Normal 1.7-12.0 [facility] Comment on above: Performed By: #### Yamile MILLER #### [facility] [address] [place] [address] Dr. Erasmo Smith MPV 9.4 fL Critically low 9.5-13.5 [facility] Comment on above: Performed By: #### Yamile MILLER #### [facility] [address] [place] [address] Dr. Erasmo Smith MYELOCYTE # Normal [facility] Comment on above: Performed By: #### Yamile MILLER #### [facility] [address] [place] [address] Dr. Erasmo Smith MYELOCYTE % Normal [facility] Comment on above: Performed By: #### Yamile MILLER #### [facility] [address] [place] [address] Dr. Erasmo Smith NRBC Normal [facility] Comment on above: Performed By: #### Yamile MILLER #### [facility] [address] [place] [address] Dr. Erasmo Smith PLT 195 103/ul Normal 150-450 [facility] Comment on above: Performed By: #### Yamile MILLER #### [facility] [address] [place] [address] Dr. Erasmo Smith RBC 4.06 106/ul Critically low 4.20-5.40 [facility] Comment on above: Performed By: #### C ANGELA #### [facility] [address] [address] [address] Erasmo Smith RDW 17.7 % Critically high 11.0-15.0 [facility] Comment on above: Performed By: #### C ANGELA #### [facility] [address] [address] [address] Erasmo Smith SEG # 16.34 103/ul Critically high 1.40-6.50 [facility] Comment on above: Performed By: #### C ANGELA #### [facility] [address] [address] [address] Erasmo Smith SEG % 86.0 % Critically high 43.0-75.0 [facility] Comment on above: Performed By: #### Yamile MILLER #### [facility] [address] [address] [address] Erasmo Smith WBC 19.0 103/ul Critically high 4.0-11.0 [facility] Comment on above: Performed By: #### Yamile MILLER #### [facility] [address] HEAD WO CONon [...] SALOME MCCORMICK Date: 2022 14:50 Normal [facility] CULTURE BLOODon 2022 Microscopic examination of blood, culture Culture Observations: Aerobic and Anaerobic bottle positive. BCID: E. Coli Culture Observations: Refer to for VIOLET. Isolate 1 Escherichia coli Growth of Normal [facility] Comment on above: Performed By: #### B LDCX2 ####[facility] [address] [place], [place] [address]PvMeena Smith Covid-19 PCR (CVDTB)on 11-11 SARS-CoV-2 (COVID-19) RNA EMILY+probe Ql (Unsp spec) Not detected Normal NOT DETECTED [facility] Comment on above: Result Comment: When diagnostic [...] for this test is supported by the Professor Of Kinesiology of Health and Human Service's declaration that [...] used). Performed By: #### C MREP #### [facility] [address] [place], [place] [address] Dr. Erasmo Smith LACTATE/LACTIC ACIDon 2022 Lactate [Moles/Vol] 1.2 mmol/L Normal 0.4-2.0 [facility] Comment on above: Performed By: #### L ACT ####[facility] [address] [place], [place] [address]PoDr. Erasmo Smith PH VENOUS BLOODon 2022 PCO2 VENOUS 37.8 mmHg Critically low 40.0-52.0 [facility] Comment on above: Performed By: #### P HVEN ####[facility] [address] [place] [address]Dr. Erasmo Smith pH VENOUS 7.417 Normal 7.330-7.430 [facility] Comment on above: Performed By: #### P HVEN ####[facility] [address] [place] [address]Dr. Erasmo Smith PROF 14(COMP METB)on 023 Albumin [Mass/Vol] 3.1 g/dL Critically low 3.4-5.0 [facility] Comment on above: Performed By: #### H ALEXSANDER, CMP ####[facility] [address] [place] [address]Dr. Erasmo Smith Albumin/Globulin [Mass ratio] 0.8 {ratio} Normal [facility] Comment on above: Performed By: #### H ALEXSANDER, CMP ####[facility] [address] [place] [address]Dr. Erasmo Smith ALP [Catalytic activity/Vol] 194 U/L Critically high 46-116 [facility] Comment on above: Performed By: #### H ALEXSANDER, CMP ####[facility] [address] [place] [address]Dr. Erasmo Smith ALT [Catalytic activity/Vol] 37 U/L Normal 14-59 [facility] Comment on above: Performed By: #### H ALEXSANDER, CMP ####[facility] [address] [place] [address]Dr. Erasmo Smith Anion gap [Moles/Vol] 14.6 mmol/L Normal [facility] Comment on above: Performed By: #### H ALEXSANDER, CMP ####[facility] [address] [place] [address]Dr. Erasmo Smith AST [Catalytic activity/Vol] 32 U/L Normal 15-37 [facility] Comment on above: Performed By: #### H STROLYNDA, CMP ####[facility] [address] [place] [address]Dr. Erasmo Smith Bilirubin [Mass/Vol] 1.0 mg/dL Normal 0.2-1.0 [facility] Comment on above: Performed By: #### H STROPN, CMP ####[facility] [address] [place] [id number]. Erasmo Smith Calcium [Mass/Vol] 8.9 mg/dL Normal 8.5-10.1 [facility] Comment on above: Performed By: #### H STROPN, CMP ####[facility] [address] [place] [id number]. Erasmo Smith Chloride [Moles/Vol] 103 mmol/L Normal 98-107 [facility] Comment on above: Performed By: #### H STROPN, CMP ####[facility] [address] [place] [address]Dr. Erasmo Smith CO2 [Moles/Vol] 23.6 mmol/L Normal 21.0-32.0 [facility] Comment on above: Performed By: #### H STROPN, CMP ####[facility] [address] [place], [place] [address]Dr. Erasmo Smith Creatinine [Mass/Vol] 0.69 mg/dL Normal 0.55-1.02 [facility] Comment on above: Performed By: #### H STROPN, CMP ####[facility] [address] [place], [place] [address]Dr. Erasmo Smith EGFR-AF CITIZEN OF [place] >60 Normal >=60 [facility] Comment on above: Performed By: #### H STROPN, CMP ####[facility] [address] [place] [address]Dr. Erasmo Smith EGFR-NON AF CITIZEN OF [place] >60 Normal >=60 [facility] Comment on above: Performed By: #### H STROPN, CMP ####[facility] [address] [place] [phone]. Erasmo Smith Globulin (S) [Mass/Vol] 4.1 g/dL Normal [facility] Comment on above: Performed By: #### H STROPN, CMP ####[facility] [address]sp[address] [place] [address]Dr. Erasmo Smith Glucose [Mass/Vol] 121 mg/dL Critically high 74-106 [facility] Comment on above: Performed By: #### H ALEXSANDER, CMP ####[facility] [address] [place] [address]Dr. Erasmo Smith Potassium [Moles/Vol] 3.2 mmol/L Critically low 3.5-5.1 [facility] Comment on above: Performed By: #### H ALEXSANDER, CMP ####[facility] [address] [place] [address]Dr. Erasmo Smith Protein [Mass/Vol] 7.2 g/dL Normal 6.4-8.2 [facility] Comment on above: Performed By: #### H ALEXSANDER, CMP ####[facility] [address] [place] [address]DrMeena Smith Sodium [Moles/Vol] 138 mmol/L Normal 136-145 [facility] Comment on above: Performed By: #### H ALEXSANDER, CMP ####[facility] [address] [place] [address]Dr. Erasmo Smith Urea nitrogen [Mass/Vol] 17.0 mg/dL Normal 7.0-18.0 [facility] Comment on above: Performed By: #### H ALEXSANDER, CMP ####[facility] [address] [place], [place] [address]DrMeena Smith Urea nitrogen/Creatinine [Mass ratio] 24.6 mg/mg Normal [facility] Comment on above: Performed By: #### H ALEXSANDER, CMP ####[facility] [address] [place] [address]Dr. Erasmo Smith PROTIMEon 2022 INR Coag (PPP) [Relative time] 3.58 {INR} Normal [facility] Comment on above: Performed By: #### P T, PTT #### [facility] [address] [place] [address] [address] Erasmo Smith INR GUIDELINES SEE BELOW Normal [facility] Comment on above: Result Comment: ABNER RED INR: 2.0 - 3.0 CONDITIONS NOT LISTED BELOW 2.5 - 3.5 FOR PROSTHETIC HEART VALVE REPLACEMENT 2.5 - 3.5 RECURRENT THROMBOSIS Performed By: #### P T, PTT #### [facility] [address] [place] [address] [address] Erasmo Smith PT Coag (PPP) [Time] 35.3 s Critically high 9.0-11.6 [facility] Comment on above: Performed By: #### P T, PTT #### [facility] [address] [place] [address] Dr. Erasmo Smith PTTon 2022 aPTT Coag (Bld) [Time] 40.3 s Critically high 22.3-36. 2 [facility] Comment on above: Performed By: #### P T, PTT #### [facility] [address] [place] [address] Dr. Erasmo Smith TROPONIN, HIGH SENSITIVITYon 2022 HSTROP 194.7 pg/mL Critically high 4.0-51.3 [facility] Comment on above: Result Comment: CUT- OFF POINTS HAVE BEEN ESTABLISHED BASED ON THE FOURTH UNIVERSAL DEFINITIONS OF MYOCARDIAL INFARCTION. THE UPPER REFERENCE LIMIT (URL) OF TROPONIN, DEFINED THE 99TH PERCENTILE OF cTnI DISTRIBUTION IN A REFERENCE POPULATION, HAS BEEN CONFIRMED THE DECISION THRESHOLD FOR UT DIAGNOSIS. Performed By: #### C MREP #### [facility] [address] [place] [address] Dr. Erasmo Smith HSTROP 218.0 pg/mL Critically high 4.0-51.3 [facility] Comment on above: Result Comment: CUT- OFF POINTS HAVE BEEN ESTABLISHED BASED ON THE FOURTH UNIVERSAL DEFINITIONS OF MYOCARDIAL INFARCTION. THE UPPER REFERENCE LIMIT (URL) OF TROPONIN, DEFINED THE 99TH PERCENTILE OF cTnI DISTRIBUTION IN A REFERENCE POPULATION, HAS BEEN CONFIRMED THE DECISION THRESHOLD FOR UT DIAGNOSIS. Performed By: #### B JERKER #### [facility] [address] [place] [address] Dr. Erasmo Smith XR CHEST 1 Von [...] HONG ALSTON Date: 2022 14:18 Normal [facility] MAMM SCREEN 3D TOÑITO CADon 11-26-2022 MG MAMM SCREEN 3D TOÑITO CAD Patient: BREANN STARKS Exam Date: 11/26/2022 : 1945 Gender:F Ordering : DR LUISANA JOHNSON . Admission #: [id number] Family : Order #: [id number] CLICK HERE TO VIEW EXAM RADIOLOGY REPORT [...] Treatments None Family Cancers None LOCATION: [facility] BREAST COMPOSITION: Heterogeneously dense,which may obscure small [...] M.D. on 11/26/2022 at 14:13 Normal [facility] PROF 14(COMP METB)on 022 Albumin [Mass/Vol] 3.8 g/dL Normal 3.4-5.0 [facility] Comment on above: Performed By: #### C MREP #### [facility] [address] [place] [address] Dr. Erasmo Smith Albumin/Globulin [Mass ratio] 0.8 {ratio} Normal [facility] Comment on above: Performed By: #### C MREP #### [facility] [address] [place] [address] Dr. Erasmo Smith ALP [Catalytic activity/Vol] 102 U/L Normal 46-116 [facility] Comment on above: Performed By: #### C MREP #### [facility] [address] [place] [address] [address] Erasmo Smith ALT [Catalytic activity/Vol] 47 U/L Normal 14-59 [facility] Comment on above: Performed By: #### C MREP #### [facility] [address] [place] [address] [address] Erasmo Smith Anion gap [Moles/Vol] 12.5 mmol/L Normal [facility] Comment on above: Performed By: #### C MREP #### [facility] [address] [place] [address] Dr. Erasmo Smith AST [Catalytic activity/Vol] 36 U/L Normal 15-37 [facility] Comment on above: Performed By: #### C MREP #### [facility] [address] [place] [address] [address] Erasmo Smith Bilirubin [Mass/Vol] 0.3 mg/dL Normal 0.2-1.0 [facility] Comment on above: Performed By: #### C MREP #### [facility] [address] [place] [address] [address] Erasmo Smith Calcium [Mass/Vol] 8.9 mg/dL Normal 8.5-10.1 [facility] Comment on above: Performed By: #### C MREP #### [facility] [address] [place] [address] [address] Erasmo Smith Chloride [Moles/Vol] 106 mmol/L Normal 98-107 [facility] Comment on above: Performed By: #### C MREP #### [facility] [address] [place] [address] Dr. Erasmo Smith CO2 [Moles/Vol] 26.9 mmol/L Normal 21.0-32.0 [facility] Comment on above: Performed By: #### C MREP #### [facility] [address] [place] [address] [address] Erasmo Smith Creatinine [Mass/Vol] 0.79 mg/dL Normal 0.55-1.02 [facility] Comment on above: Performed By: #### C MREP #### [facility] [address] [place] [address] [address] Erasmo Smith EGFR-AF CITIZ[place] >60 Normal >=60 [facility] Comment on above: Performed By: #### C MREP #### [facility] [address] [place] [address] [address] Erasmo Smith EGFR-NON AF CITIZEN OF [place] >60 Normal >=60 [facility] Comment on above: Performed By: #### C MREP #### [facility] [address] [place] [address] Dr. Erasmo Smith Globulin (S) [Mass/Vol] 4.6 g/dL Normal [facility] Comment on above: Performed By: #### C MREP #### [facility] [address] [place] [address] Dr. Erasmo Smith Glucose [Mass/Vol] 102 mg/dL Normal 74-106 [facility] Comment on above: Performed By: #### C MREP #### [facility] [address] [place] [address] Dr. Erasmo Smith Potassium [Moles/Vol] 4.4 mmol/L Normal 3.5-5.1 [facility] Comment on above: Performed By: #### C MREP #### [facility] [address] [place] [address] [address] Erasmo Smith Protein [Mass/Vol] 8.4 g/dL Critically high 6.4-8.2 T [facility] Comment on above: Performed By: #### C MREP #### [facility] [address] [place] [address] Dr. Erasmo Smith Sodium [Moles/Vol] 141 mmol/L Normal 136-145 [facility] Comment on above: Performed By: #### C MREP #### [facility] [address] [place] [address] [address] Erasmo Smith Urea nitrogen [Mass/Vol] 28.0 mg/dL Critically high 7.0-18.0 [facility] Comment on above: Performed By: #### C MREP #### [facility] [address] [place] [address] Dr. Erasmo Smith Urea nitrogen/Creatinine [Mass ratio] 35.4 mg/mg Normal [facility] Comment on above: Performed By: #### C MREP #### [facility] [address] [place] [address] Dr. Erasmo Smith CBC AUTO DIFFon 07-12-2022 BASO # 0.1 103/ul Normal 0.0-0.1 [facility] Comment on above: Performed By: #### B JERKER #### [facility] [address] [place] [address] Dr. Erasmo Smith Basophils/100 WBC (Bld) 0.5 % Normal 0.2-2.0 [facility] Comment on above: Performed By: #### B JERKER #### [facility] [address] [place] [address] Dr. Erasmo Smith EO # 0.2 103/ul Normal 0.0-0.7 [facility] Comment on above: Performed By: #### B JERKER #### [facility] [address] [place] [address] Dr. Erasom Smith Eosinophils/100 WBC (Bld) 2.5 % Normal 0.9-7.0 [facility] Comment on above: Performed By: #### B JERKER #### [facility] [address] [place] [address] Dr. Erasmo Smith Erythrocyte distribution width (RBC) [Ratio] 17.2 % Critically high 11.0-15.0 [facility] Comment on above: Performed By: #### B JERKER #### [facility] [address] [place] [address] Dr. Erasmo Smith Hematocrit (Bld) [Volume fraction] 35.0 % Critically low 36.0-48.0 [facility] Comment on above: Performed By: #### B JERKER #### [facility] [address] [place] [address] Dr. Erasmo Smith Hemoglobin (Bld) [Mass/Vol] 11.3 g/dL Critically low 12.0-16.0 [facility] Comment on above: Performed By: #### B JERKER #### [facility] [address] [place] [address] Dr. Erasmo Smith IG # 0.02 10e3/ul Normal 0.00-0.03 [facility] Comment on above: Performed By: #### B JERKER #### [facility] [address] [place] [address] Dr. Erasmo Smith IG % 0.2 % Normal 0.0-0.5 [facility] Comment on above: Performed By: #### B JERKER #### [facility] [address] [place] [address] Dr. Erasmo Smith LYMPH # 2.3 103/ul Normal 1.2-3.8 [facility] Comment on above: Performed By: #### B JERKER #### [facility] [address] [place] [address] Dr. Erasmo Smith Lymphocytes/100 WBC (Bld) 25.4 % Normal 20.5-60.0 [facility] Comment on above: Performed By: #### B JERKER #### [facility] [address] [place] [address] Dr. Erasmo Smith MANUAL DIFF REQ NO Normal [facility] Comment on above: Performed By: #### B JERKER #### [facility] [address] [place] [address] Dr. Erasmo Smith MCH (RBC) [Entitic mass] 25.5 pg Critically low 26.7-34.0 [facility] Comment on above: Performed By: #### B JERKER #### [facility] [address] [place] [address] Dr. Erasmo Smith MCHC (RBC) [Mass/Vol] 32.3 g/dL Normal 29.9-35.2 [facility] Comment on above: Performed By: #### B JERKER #### [facility] [address] [place] [address] [address] Erasmo Smith MCV (RBC) [Entitic vol] 78.8 fL Critically low 81.0-99.0 [facility] Comment on above: Performed By: #### B JERKER #### [facility] [address] [place] [address] [address] Erasmo Smith MONO # 0.7 103/ul Normal 0.3-0.8 [facility] Comment on above: Performed By: #### B JERKER #### [facility] [address] [place] [address] Dr. Erasmo Smith Monocytes/100 WBC (Bld) 7.5 % Normal 1.7-12.0 [facility] Comment on above: Performed By: #### B JERKER #### [facility] [address] [place] [address] Dr. Erasmo Smith NEUT # 5.9 103/ul Normal 1.4-6.5 [facility] Comment on above: Performed By: #### B JERKER #### [facility] [address] [place] [address] Dr. Erasmo Smith Neutrophils/100 WBC (Bld) 63.9 % Normal 43.0-75.0 [facility] Comment on above: Performed By: #### B JERKER #### [facility] [address] [place] [address] Dr. Erasmo Smith Platelet mean volume (Bld) [Entitic vol] 9.0 fL Critically low 9.5-13.5 [facility] Comment on above: Performed By: #### B JERKER #### [facility] [address] [place] [address] Dr. Erasmo Smith PLT 305 103/ul Normal 150-450 [facility] Comment on above: Performed By: #### B JERKER #### [facility] [address] [place] [address] Dr. Erasmo Smith RBC 4.44 106/ul Normal 4.20-5.40 [facility] Comment on above: Performed By: #### B JERKER #### [facility] [address] [place] [address] [address] Erasmo Smith WBC 9.2 103/ul Normal 4.0-11.0 [facility] Comment on above: Performed By: #### B JERKER #### [facility] [address] [place] [address] CHEST WO CONon [...] PAULA BROWN Date: 2022-05-27 15:27 Normal [facility] HEMOGLOBINon 04-20-2022 Hemoglobin (Bld) [Mass/Vol] 10.6 g/dL Critically low 12.0-16.0 [facility] Comment on above: Performed By: #### H GB ####[facility] [address] [place], [place] [address]JdDr. Erasmo Smith CULTURE SPUTUMon 04-02-2022 CULTURE SPUTUM Isolate 1 Pseudomonas aeruginosa Light growth of ORGANISM 1 Pseudomonas aeruginosa ANTIBIOTIC M.I.C RX STATUS Piperacillin/Tazobac saez 8 S F Ceftazidime 2 S F Imipenem 1 S F Amikacin <=2 S F Gentamicin <=1 S F Tobramycin <=1 S F Ciprofloxacin <=0.25 S F Levofloxacin 0.25 S F Normal [facility] Comment on above: Performed By: #### S PUTCX ####[facility] [address] [place] [address]Dr. Erasmo Smith CYTOLOGYon 03-30-2022 SENT TO REF LAB 03/31/22 Normal [facility] Comment on above: Performed By: #### C YTO #### [facility] [address] [place] [address] [address] Erasmo Smith SPUTUM GRAM STAINon 03-30-20 COMMENTS Normal [facility] Comment on above: Performed By: #### B JERKER #### [facility] [address] [place] [address] [address] Erasmo Smith DIPHTHEROIDS [facility] Comment on above: Performed By: #### B JERKER #### [facility] [address] [place] [address] Dr. Erasmo Smith EPITHELIALS <25 [facility] Comment on above: Performed By: #### B JERKER #### [facility] [address] [place] [address] [address] Erasmo Smith FUNGAL ELEMENTS [facility] Comment on above: Performed By: #### B JERKER #### [facility] [address] [place] [address] [address] Erasmo CINTRON NEG BACILLI FEW Normal [facility] Comment on above: Performed By: #### B JERKER #### [facility] [address] [place] [address] [address] Erasmo CINTRON NEG DIPPLOCOCCI [facility] Comment on above: Performed By: #### B JERKER #### [facility] [address] [place] [address] [address] Erasmo CINTRON POS BACILLI [facility] Comment on above: Performed By: #### B JERKER #### [facility] [address] [place] [address] Dr. Erasmo Smith GRAM POSITIVE COCCI MANY Normal [facility] Comment on above: Performed By: #### B JERKER #### [facility] [address] [place] [address] Dr. Erasmo Smith WBC (Bld) [#/Vol] 10*3/uL Normal [facility] Comment on above: Performed By: #### B JERKER #### [facility] [address] [place] [address] [address] Erasmo Smith SPUTUM CULTUREon 03-01-2022 Epithelial cells LM Ql (Urine sed) Few Normal [facility] Comment on above: Performed By: #### C XSPTUM ####[facility] [address] [place] [address]Dr. Erasmo Smith Gram Stain Evaluation Comment Normal [facility] Comment on above: Result Comment: This specimen is of good quality and is acceptable for routine bacterial culture. Performed By: #### C XSPTUM ####[facility] [address] [place] [address]DrMeena Smith Lower Respiratory Culture Final report Normal [facility] Comment on above: Performed By: #### C XSPTUM ####[facility] [address] [place] [address]Dr. Erasmo Smith Result 1 Comment Normal [facility] Comment on above: Result Comment: Few gram positive cocci Performed By: #### C XSPTUM ####[facility] [address] [place], [place] [address]Dr. Erasmo Smith Result Comment: Rout ine respiratory adria Result 2 Normal [facility] Comment on above: Performed By: #### C XSPTUM ####[facility] [address] [place] [address]Dr. Erasmo Smith Result 3 Normal [facility] Comment on above: Performed By: #### C XSPTUM ####[facility] [address] [place] [address]Dr. Erasmo Smith Result 4 Normal [facility] Comment on above: Performed By: #### C XSPTUM ####[facility] [address] [place] [address]DrMeena Smith White Blood Cells Few Normal [facility] Comment on above: Performed By: #### C XSPTUM ####[facility] [address] [place] [address]Dr. Erasmo Smith BNPon 02-24-2022 Natriuretic peptide B (Bld) [Mass/Vol] 319.0 pg/mL Normal <=900.0 [facility] Comment on above: Performed By: #### B JERKER #### [facility] [address] [place] [address] [address] Erasmo Smith CBC AUTO DIFFon 02-24-2022 BASO # 0.1 103/ul Normal 0.0-0.1 [facility] Comment on above: Performed By: #### C MREP #### [facility] [address] [place] [address] Dr. Erasmo Smith Basophils/100 WBC (Bld) 0.5 % Normal 0.2-2.0 [facility] Comment on above: Performed By: #### C MREP #### [facility] [address] [place] [address] Dr. Erasmo Smith EO # 0.3 103/ul Normal 0.0-0.7 [facility] Comment on above: Performed By: #### C MREP #### [facility] [address] [place] [address] Dr. Erasmo Smith Eosinophils/100 WBC (Bld) 3.1 % Normal 0.9-7.0 [facility] Comment on above: Performed By: #### C MREP #### [facility] [address] [place] [address] Dr. Erasmo Smith Erythrocyte distribution width (RBC) [Ratio] 15.1 % Critically high 11.0-15.0 [facility] Comment on above: Performed By: #### C MREP #### [facility] [address] [place] [address] Dr. Erasmo Smith Hematocrit (Bld) [Volume fraction] 33.9 % Critically low 36.0-48.0 [facility] Comment on above: Performed By: #### C MREP #### [facility] [address] [place] [address] Dr. Erasmo Smith Hemoglobin (Bld) [Mass/Vol] 10.7 g/dL Critically low 12.0-16.0 [facility] Comment on above: Performed By: #### C MREP #### [facility] [address] [place] [address] [address] Erasmo Smith IG # 0.03 10e3/ul Normal 0.00-0.03 [facility] Comment on above: Performed By: #### C MREP #### [facility] [address] [place] [address] [address] Erasmo Smith IG % 0.3 % Normal 0.0-0.5 [facility] Comment on above: Performed By: #### C MREP #### [facility] [address] [place] [address] [address] Erasmo Smith LYMPH # 2.8 103/ul Normal 1.2-3.8 [facility] Comment on above: Performed By: #### C MREP #### [facility] [address] [place] [address] Dr. Erasmo Smith Lymphocytes/100 WBC (Bld) 30.6 % Normal 20.5-60.0 [facility] Comment on above: Performed By: #### C MREP #### [facility] [address] [place] [address] Dr. Erasmo Smith MANUAL DIFF REQ NO Normal [facility] Comment on above: Performed By: #### C MREP #### [facility] [address] [place] [address] Dr. Erasmo Smith MCH (RBC) [Entitic mass] 26.9 pg Normal 26.7-34.0 [facility] Comment on above: Performed By: #### C MREP #### [facility] [address] [place] [address] Dr. Erasmo Smith MCHC (RBC) [Mass/Vol] 31.6 g/dL Normal 29.9-35.2 [facility] Comment on above: Performed By: #### C MREP #### [facility] [address] [place] [address] Dr. Erasmo Smith MCV (RBC) [Entitic vol] 85.2 fL Normal 81.0-99.0 [facility] Comment on above: Performed By: #### C MREP #### [facility] [address] [place] [address] [address] Erasmo Smith MONO # 0.7 103/ul Normal 0.3-0.8 [facility] Comment on above: Performed By: #### C MREP #### [facility] [address] [address] [address] Erasmo Smith Monocytes/100 WBC (Bld) 7.9 % Normal 1.7-12.0 [facility] Comment on above: Performed By: #### C MREP #### [facility] [address] [address] [address] Erasmo Smith NEUT # 5.3 103/ul Normal 1.4-6.5 [facility] Comment on above: Performed By: #### C MREP #### [facility] [address] [address] [address] Erasmo Smith Neutrophils/100 WBC (Bld) 57.6 % Normal 43.0-75.0 [facility] Comment on above: Performed By: #### C MREP #### [facility] [address] [address] [address] Erasmo Smith Platelet mean volume (Bld) [Entitic vol] 9.0 fL Critically low 9.5-13.5 [facility] Comment on above: Performed By: #### C MREP #### [facility] [address] [address] [address] Erasmo Smith PLT 249 103/ul Normal 150-450 [facility] Comment on above: Performed By: #### C MREP #### [facility] [address] [address] [address] Erasmo Smith RBC 3.98 106/ul Critically low 4.20-5.40 [facility] Comment on above: Performed By: #### C MREP #### [facility] [address] [address] [address] Erasmo Smith WBC 9.1 103/ul Normal 4.0-11.0 [facility] Comment on above: Performed By: #### C MREP #### [facility] [address] [place] [address] Dr. Erasmo Smith CTA CHEST WO W [...] by: PAULA BROWN Date: 2022-02-24 18:24 Normal [facility] D-DIMERon 02-24-2022 D-DIMER 1.36 mg/L FEU Critically high <=0.59 [facility] Comment on above: Performed By: #### D DIM #### [facility] [address] [place] [address] Dr. Erasmo Smith D-DIMER COMMENTS SEE BELOW [...] hospitalization. Performed By: #### D DIM #### [facility] [address] [place] [address] Dr. Erasmo Smith PROF 14(COMP METB)on 022 Albumin [Mass/Vol] 3.6 g/dL Normal 3.4-5.0 [facility] Comment on above: Performed By: #### C MREP #### [facility] [address] [place] [address] Dr. Erasmo Smith Albumin/Globulin [Mass ratio] 0.8 {ratio} Normal [facility] Comment on above: Performed By: #### C MREP #### [facility] [address] [place] [address] Dr. Erasmo Smith ALP [Catalytic activity/Vol] 95 U/L Normal 46-116 [facility] Comment on above: Performed By: #### C MREP #### [facility] [address] [place] [address] Dr. Erasmo Smith ALT [Catalytic activity/Vol] 45 U/L Normal 14-59 [facility] Comment on above: Performed By: #### C MREP #### [facility] [address] [place] [address] Dr. Erasmo Smith Anion gap [Moles/Vol] 15.9 mmol/L Normal [facility] Comment on above: Performed By: #### C MREP #### [facility] [address] [place] [address] Dr. Erasmo Smith AST [Catalytic activity/Vol] 33 U/L Normal 15-37 [facility] Comment on above: Performed By: #### C MREP #### [facility] [address] [place] [address] Dr. Erasmo Smith Bilirubin [Mass/Vol] 0.5 mg/dL Normal 0.2-1.0 [facility] Comment on above: Performed By: #### C MREP #### [facility] [address] [address] [address] Erasmo Smith Calcium [Mass/Vol] 9.1 mg/dL Normal 8.5-10.1 [facility] Comment on above: Performed By: #### C MREP #### [facility] [address] [address] [address] Erasmo Smith Chloride [Moles/Vol] 103 mmol/L Normal 98-107 [facility] Comment on above: Performed By: #### C MREP #### [facility] [address] [place] [address] Dr. Erasmo Smith CO2 [Moles/Vol] 25.1 mmol/L Normal 21.0-32.0 [facility] Comment on above: Performed By: #### C MREP #### [facility] [address] [place] [address] Dr. Erasmo Smith Creatinine [Mass/Vol] 0.77 mg/dL Normal 0.55-1.02 [facility] Comment on above: Performed By: #### C MREP #### [facility] [address] [place] [address] Dr. Erasmo Smith EGFR-AF CITIZEN OF [place] >60 Normal >=60 [facility] Comment on above: Performed By: #### C MREP #### [facility] [address] [place] [address] Dr. Erasmo Smith EGFR-NON AF CITIZEN OF [place] >60 Normal >=60 [facility] Comment on above: Performed By: #### C MREP #### [facility] [address] [place] [address] Dr. Erasmo Smith Globulin (S) [Mass/Vol] 4.3 g/dL Normal [facility] Comment on above: Performed By: #### C MREP #### [facility] [address] [place] [address] Dr. Erasmo Smith Glucose [Mass/Vol] 92 mg/dL Normal 74-106 [facility] Comment on above: Performed By: #### C MREP #### [facility] [address] [place] [address] Dr. Erasmo Smith Potassium [Moles/Vol] 4.0 mmol/L Normal 3.5-5.1 [facility] Comment on above: Performed By: #### C MREP #### [facility] [address] [address] [address] Erasmo Smith Protein [Mass/Vol] 7.9 g/dL Normal 6.4-8.2 [facility] Comment on above: Performed By: #### C MREP #### [facility] [address] [address] [address] Erasmo Smith Sodium [Moles/Vol] 140 mmol/L Normal 136-145 [facility] Comment on above: Performed By: #### C MREP #### [facility] [address] [address] [address] Erasmo Smith Urea nitrogen [Mass/Vol] 17.0 mg/dL Normal 7.0-18.0 [facility] Comment on above: Performed By: #### C MREP #### [facility] [address] [address] [address] Erasmo Smith Urea nitrogen/Creatinine [Mass ratio] 22.1 mg/mg Normal [facility] Comment on above: Performed By: #### C MREP #### [facility] [address] [address] [address] Erasmo Smith PROTIMEon 02-24-2022 INR Coag (PPP) [Relative time] 2.28 {INR} Normal [facility] Comment on above: Performed By: #### P T, PTT ####[facility] [id number] [address]Dr. Erasmo Smith INR GUIDELINES SEE BELOW Normal [facility] Comment on above: Result Comment: ABNER RED INR: 2.0 - 3.0 CONDITIONS NOT LISTED BELOW 2.5 - 3.5 FOR PROSTHETIC HEART VALVE REPLACEMENT 2.5 - 3.5 RECURRENT THROMBOSIS Performed By: #### P T, PTT ####[facility] [id number] [address]Dr. Erasmo Smith PT Coag (PPP) [Time] 23.3 s Critically high 9.0-11.6 [facility] Comment on above: Performed By: #### P T, PTT ####[facility] [id number] [place], [place] [address]NqDr. Erasmo Smith PTTon 02-24-2022 aPTT Coag (Bld) [Time] 34.7 s Normal 22.3-36.2 [facility] Comment on above: Performed By: #### P T, PTT ####[facility] [id number] [place], [place] [address]FzMeena Smith TROPONIN, HIGH SENSITIVITYon 02-24-2022 HSTROP 6.6 pg/mL Normal 4.0-51.3 [facility] Comment on above: Result Comment: CUT- OFF POINTS HAVE BEEN ESTABLISHED BASED ON THE FOURTH UNIVERSAL DEFINITIONS OF MYOCARDIAL INFARCTION. THE UPPER REFERENCE LIMIT (URL) OF TROPONIN, DEFINED THE 99TH PERCENTILE OF cTnI DISTRIBUTION IN A REFERENCE POPULATION, HAS BEEN CONFIRMED THE DECISION THRESHOLD FOR UT DIAGNOSIS. Performed By: #### C MREP #### [facility] [address] [place], [place] [address] Dr. Erasmo Smith PROTHROMBIN TIMEon INR Coag (PPP) [Relative time] 1.2 {INR} High 0.86-1.16 [facility] Comment on above: Result Comment: INR Theraputic Range: 2.0-3.5 Performed at [facility] [id number] [place] [id number] PT Coag (PPP) [Time] 12.7 s Normal 9.3-12.7 [facility] ANTICOAGULANT COUMADIN Normal [facility] Vital Signs Date Time Vital Sign Value Performing Clinician Faci lity 08-16-2024 10:33-0500 Body height 149.9 cm Renny Hansen MD Work Phone: [facility] 08-16-2024 10:33-0500 Body mass index (BMI) [Ratio] 44.23 kg/m2 Renny Hansen MD Work Phone: [facility] 08-16-2024 10:33-0500 Body weight 99.34 kg Renny Hansen MD Work Phone: [facility] 12-05-2024 10:33-0500 Diastolic blood pressure 80 mm[Hg] Renny Hansen MD Work Phone: [facility] 08-16-2024 10:33-0500 Heart rate 66 /min Renny Hansen MD Work Phone: [facility] 08-16-2024 10:33-0500 SaO2% (BldA) [Mass fraction] 95 % Renny Hansen MD Work Phone: [facility] 08-16-2024 10:33-0500 Systolic blood pressure 132 mm[Hg] Renny Hansen MD Work Phone: [facility] 08-02-2024 10:51-0500 Body height 149.9 cm Renny Hansen MD Work Phone: [facility] 08-02-2024 10:51-0500 Body mass index (BMI) [Ratio] 44.84 kg/m2 Renny Hansen MD Work Phone: [facility] 08-02-2024 10:51-0500 Body temperature 98.4 [degF] Renny Hansen MD Work Phone: [facility] 08-02-2024 10:51-0500 Body weight 100.7 kg Renny Hansen MD Work Phone: [facility] 08-02-2024 10:51-0500 Diastolic blood pressure 72 mm[Hg] Renny Hansen MD Work Phone: [facility] 08-02-2024 10:51-0500 Heart rate 60 /min Renny Hansen MD Work Phone: [facility] 08-02-2024 10:51-0500 SaO2% (BldA) [Mass fraction] 95 % Renny Hansen MD Work Phone: [facility] 08-02-2024 10:51-0500 Systolic blood pressure 134 mm[Hg] Renny Hansen MD Work Phone: [facility] 07-24-2024 10:48-0500 Body height 149.9 cm Eleanor SANTOS Work Phone: [facility] 07-24-2024 10:48-0500 Body mass index (BMI) [Ratio] 45.85 kg/m2 Eleanor Hemmer PA Work Phone: [facility] 07-24-2024 10:48-0500 Body weight 102.97 kg Eleanor Hemmer PA Work Phone: [facility] 07-24-2024 10:48-0500 Diastolic blood pressure 68 mm[Hg] Eleanor Hemmer PA Work Phone: [facility] 07-24-2024 10:48-0500 Heart rate 60 /min Eleanor Hemmer PA Work Phone: [facility] 07-24-2024 10:48-0500 SaO2% (BldA) [Mass fraction] 96 % Eleanor Hemmer PA Work Phone: [facility] 07-24-2024 10:48-0500 Systolic blood pressure 124 mm[Hg] Eleanor Hemmer PA Work Phone: [facility] 07-05-2024 08:50-0400 Body height 149.9 cm Renny Hansen MD Work Phone: [facility] 07-05-2024 08:50-0400 Body mass index (BMI) [Ratio] 46.66 kg/m2 Renyn Hansen MD Work Phone: [facility] 07-05-2024 08:50-0400 Body weight 104.78 kg Renny Hansen MD Work Phone: [facility] 07-05-2024 08:50-0400 Diastolic blood pressure 74 mm[Hg] Renny Hansen MD Work Phone: [facility] 07-05-2024 08:50-0400 Heart rate 69 /min Renny Hansen MD Work Phone: [facility] 07-05-2024 08:50-0400 SaO2% (BldA) [Mass fraction] 96 % Renny Hansen MD Work Phone: [facility] 07-05-2024 08:50-0400 Systolic blood pressure 130 mm[Hg] Renny Hansen MD Work Phone: [facility] 05-31-2024 13:46-0400 Body height 149.9 cm Monster Calvillo JERKER Work Phone: [facility] 05-31-2024 13:46-0400 Body mass index (BMI) [Ratio] 47.87 kg/m2 Monster Calvillo JERKER Work Phone: [facility] 05-31-2024 13:46-0400 Body temperature 98.4 [degF] Monster Calvillo JERKER Work Phone: [facility] 05-31-2024 13:46-0400 Body weight 107.5 kg Monster Calvillo JERKER Work Phone: [facility] 05-31-2024 13:46-0400 Diastolic blood pressure 80 mm[Hg] Monster Calvillo JERKER Work Phone: [facility] 05-31-2024 13:46-0400 Heart rate 73 /min Monster Calvillo JERKER Work Phone: [facility] 05-31-2024 13:46-0400 SaO2% (BldA) [Mass fraction] 95 % Omnster Calvillo JERKER Work Phone: [facility] 05-31-2024 13:46-0400 Systolic blood pressure 140 mm[Hg] Monster Calvillo JERKER Work Phone: [facility] 05-22-2024 13:17-0400 Body height 149.9 cm Boo Sherwin PA-C Work Phone: [facility] 05-22-2024 13:17-0400 Body mass index (BMI) [Ratio] 44.43 kg/m2 Boo Sherwin PA-C Work Phone: [facility] 05-22-2024 13:17-0400 Body weight 99.79 kg Boo Sherwin PA-C Work Phone: [facility] 06-21-2024 11:51-0400 Blood Pressure Location Ortega NILL [facility] [place] 03-02-2024 11:51-0400 Diastolic blood pressure 75 mm[Hg] Ortega NILL [facility] [place] 03-02-2024 11:51-0400 Heart rate 71 /min Ortega NILL [facility] [place] 03-02-2024 11:51-0400 Respiratory rate 16 /min Ortega NILL [facility] [place] 03-02-2024 11:51-0400 Systolic blood pressure 118 mm[Hg] Ortega NILL [facility] [place] 10-07-2021 16:00-0500 Body height 146.69 cm Hong Nevarez Other [email or web address] [facility] Other 10-07-2021 16:00-0500 Body mass index (BMI) [Ratio] 51.01 kg/m2 Hong Nevarez Other [facility] Other 10-07-2021 16:00-0500 Body weight 109.77 kg Hong Nevarez Other [facility] Other 08-26-2021 15:15-0500 Body height 146.69 cm Hong Nevarez Other [facility] Other 08-26-2021 15:15-0500 Body mass index (BMI) [Ratio] 51.07 kg/m2 Hong Nevarez Other [facility] Other 08-26-2021 15:15-0500 Body weight 109.91 kg Hong Geri Other [facility] Other Encounters Encounter Date Encounter Type Care Provider Facility Start: 09-10-2024 ambulatory Renny Hansen Facility:[facility] Start: 08-24-2024 End: 08-24-2024 ambulatory Pedro Pablo Cruz [facility] Start: 08-24-2024 End: 08-24-2024 External Result Encounter Katharina [place] JERKER Work Phone: [facility] Unsolicited Start: 08-24-2024 End: 08-24-2024 External Result Encounter Katharina [place] JERKER Work Phone: [facility] Unsolicited Start: 08-20-2024 End: 08-20-2024 ambulatory Miguel Murphy MD Facility:[facility] Start: 08-16-2024 End: 08-16-2024 Bamboo flowsheet Renny [...] Start: 07-24-2024 End: 07-24-2024 Bamboo flowsheet Eleanor Laehy PA Work Phone: [facility] Start: [...] Not Available Start: 07-19-2024 End: 07-19-2024 ambulatory , STEPANIC Not Available Start: 07-18-2024 End: 07-18-2024 ambulatory [facility] Start: 07-16-2024 End: 07-16-2024 Refill [...] Not Available Start: 06-19-2024 End: 06-19-2024 ambulatory [facility] Start: 06-18-2024 End: 06-18-2024 Refill Monster Calvillo JERKER Work Phone: [facility] Comment on above: Acute on chronic nisa stolic (congestive) heart failure (CMS/HCC) Start: 05-31-2024 End: 05-31-2024 Bamboo flowsheet Monster Kilpatrickpatrick JERKER Work Phone: [facility] Start: 05-31-2024 End: 05-31-2024 Bamboo flowsheet Monster Calvillo JERKER Work Phone: [facility] Start: 05-31-2024 End: 05-31-2024 Office outpatient visit 15 minutes Monster Calvillo JERKER Work Phone: [facility] Comment on above: Acute on chronic nisa stolic (congestive) heart failure (CMS/HCC) (Primary Dx) Start: 05-31-2024 End: 05-31-2024 ambulatory MONSTER CALVILLO [...] encounter procedure MD Shaikh Denis Work Phone: [facility] Work Phone: Start: 05-02-2024 End: 05-02-2024 ambulatory MD Shaikh Denis Work Phone: [facility] Work Phone: Start: 04-16-2024 End: 04-16-2024 ambulatory PEDRO PABLO CRUZ Not Available Start: 04-16-2024 End: 04-16-2024 ambulatory Miguel Murphy MD Facility:[facility] Start: 04-11-2024 End: 04-11-2024 ambulatory SHAIKH CIRA Not Available Start: 04-10-2024 End: 04-10-2024 Patient encounter procedure MD Shaikh Denis Work Phone: [facility] [place] Work Phone: Start: 04-10-2024 End: 04-10-2024 ambulatory MD Shaikh Denis Work Phone: [facility] Work Phone: Start: 04-02-2024 End: 04-02-2024 ambulatory Miguel Murphy MD Facility:[facility] Start: 03-29-2024 End: 03-29-2024 Patient encounter procedure MD Shaikh Denis Work Phone: [facility] Start: 03-29-2024 End: 03-29-2024 ambulatory MD Shaikh Denis Work Phone: [facility] Work Phone: Start: 03-12-2024 End: 03-12-2024 ambulatory SHAIKH CIRA Not Available Start: 03-07-2024 End: 03-07-2024 ambulatory Ortega ALEXANDER Facility:[id number] Start: 03-02-2024 End: 03-02-2024 ambulatory Ortega ALEXANDER Facility:[facility] Start: 03-02-2024 End: 03-02-2024 Patient encounter procedure Ortega ALEXANDER [facility] [place] Start: 03-01-2024 ambulatory Ortega ALEXANDER Facility:[facility] Start: 02-27-2024 End: 02-27-2024 ambulatory SHAIKH CIRA Not Available Start: 01-17-2024 End: 01-17-2024 ambulatory NICANOR [facility] Start: 12-29-2023 End: 12-29-2023 ambulatory SAHU CIRA Not Available Start: 12-27-2023 End: 12-27-2023 ambulatory [facility] Start: 12-26-2023 End: 12-26-2023 ambulatory Miguel Murphy MD Facility:[facility] [place] Start: 12-05-2023 End: 12-05-2023 ambulatory Miguel Murphy MD Facility:[facility] Start: 11-16-2023 End: 11-16-2023 ambulatory Shaikh Cira [facility] Start: 11-07-2023 End: 11-07-2023 ambulatory SHAIKH CIRA Not Available Start: 10-17-2023 Cristobal Denis MD Work Phone: [facility] Start: 10-17-2023 Cristobal Denis MD Work Phone: [facility] Start: 10-17-2023 End: 10-17-2023 ambulatory SHAIKH CIRA Not Available Start: 10-11-2023 End: 10-11-2023 ambulatory MD Shaikh Denis Work Phone: [facility] Work Phone: Start: 10-11-2023 End: 10-11-2023 Patient encounter procedure MD Shaikh Denis Work Phone: [facility] [place] Work Phone: Start: 09-08-2023 End: 09-08-2023 ambulatory MD Shaikh Denis Work Phone: [facility] Work Phone: Start: 09-08-2023 End: 09-08-2023 Patient encounter procedure MD Shaikh Denis Work Phone: [facility] Start: 09-06-2023 End: [...] 10-07-2021 End: 10-07-2021 ambulatory Hong Nevarez Other [facility] Other Start: 10-07-2021 Office outpatient visit 15 minutes Hong Nevarez [facility] Start: 08-26-2021 End: 08-26-2021 ambulatory Hong Nevarez Other [facility] Other Start: 08-26-2021 Office outpatient ne w 45 minutes Hong Nevarez [facility] Start: 10-11-2020 End: 10-13-2020 Evaluation and management of inpatient ZANEJennifer MCGUIRE Facility:[facility] Procedures Date Procedure Procedure Detail Performing Clinician Start: 08-24-2024 Complete blood count with white cell differential, automated Katharina [place] JERKER Work Phone: Start: 07-24-2024 ALL CBC WITH AUTO DIFF Eleanor Leahy PA Work Phone: Start: 07-24-2024 [employer] Filippo Evans Tosin PA Work Phone: Start: 07-24-2024 Transferrin [Mass/vo lume] in Serum or Plasma Eleanor Evans Tosin SANTOS Work Phone: Start: 05-22-2024 Radex shoulder compl ete minimum 2 views Boo Buchanan PA-C Work Phone: Start: 05-09-2024 ALL CBC WITH AUTO DIFF Shaikh Cira CUBA Work Phone: Start: 05-02-2024 Radionuclide three-p hase bone study MD Shaikh Denis Work Phone: Start: 10-11-2023 XR pre/post mri xray MD Shaikh Dneis Work Phone: Start: 10-11-2023 MR lumbar spine wo con MD Shaikh Denis Work Phone: Start: 09-20-2021 Cardiac pacemaker, d evice (physical object) Ortega ALEXANEDR Comment on above: Dr. Martinez Start: 10-13-2020 [...] Appendectomy Ortega NILL Arthroscopy of knee Ortega PARKL Comment on above: 06/2012 Arthroscopy of shoulder Brice aeankur CATHERINE Comment on above: left shoulder tear r epaired 08/25 Cardiac catheter (ph ysical object) Ortega ALEXANDER Comment on above: 12/21/ CAD Colonoscopy Ortega ALEXANDER Comment on above: 2013 repeat 10 years Ligation of fallopian tube [...] [address] [place] [address] Renny Hansen MD [address] [place] [address] [facility] Start: 09-14-2024 End: 09-14-2024 Patient encounter procedure 09/14/2024 10:00 AM EST Office Visit [facility] [address] [place] [address] Renny Hansen MD [address] [place] [address] [facility] Start: 09-06-2024 Medicare Annual Well ness (AWV) Medicare Annual Wellness (AWV) [facility] Start: 08-23-2024 End: 08-23-2024 Patient encounter procedure 08/23/2024 11:45 AM EST Office Visit [facility] [address] [place] [address] Renny Hansen MD [address] [place] [address] [facility] Start: 08-16-2024 End: 08-16-2024 Patient encounter procedure 08/16/2024 10:30 AM EST Office Visit [facility] [address] [facility] [address] [place] [phone] Renny Hansen MD [address] [facility] [address] [place] [address] [facility] Start: 08-02-2024 End: 08-02-2025 [...] [facility] [address] [place] [id number] [facility] Start: 07-05-2024 End: 07-05-2025 EMG AND NERVE CONDUCTION STUDY EMG AND NERVE CONDUCTION STUDY Neurology Routine Neck pain on left side Radicular pain in left arm Expected: 07/05/2024 (Approximate), Expires: 07/05/2025 [facility] Comment on above: Expected: 07/05/2024 (Approximate), Expires: 07/05/2025 Start: 07-05-2024 End: 09-04-2025 MG Breast - bilateral Screening Bilateral screening mammogram Imaging Routine Breast screening Expected: 07/05/2024 (Approximate), Expires: 09/04/2025 [facility] Work Phone: Comment on above: Expected: 07/05/2024 (Approximate), Expires: 09/04/2025 Start: 07-05-2024 End: 07-05-2024 Patient encounter procedure [facility] Comment on above: Arrived Start: 05-31-2024 End: 05-31-2024 Patient encounter procedure 05/31/2024 1:30 PM EDT [facility] [address] [place] [address] Monster Calvillo NP [address] [place] [address] [facility] Comment on above: Arrived Start: 05-22-2024 End: 08-21-2024 C reactive protein [Mass/volume] in Serum or Plasma C-REACTIVE PROTEIN Lab Routine 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) Expected: 05/22/2024, Expires: 08/21/2024 [facility] Comment on above: Expected: 05/22/2024 , Expires: 08/21/2024 Start: 05-22-2024 End: 08-21-2024 CBC W Auto Differential panel - Blood COMPLETE BLOOD COUNT AND DIFFERENTIAL Lab Routine 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) Expected: 05/22/2024, Expires: 08/21/2024 [facility] Comment on above: Expected: 05/22/2024 , Expires: 08/21/2024 Start: 05-22-2024 End: 08-21-2024 Erythrocyte sedimentation rate SEDIMENTATION RATE, WESTERGREN Lab Routine 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) Expected: 05/22/2024, Expires: 08/21/2024 [facility] Comment on above: Expected: 05/22/2024 , Expires: 08/21/2024 Start: 05-22-2024 End: 05-22-2024 Patient encounter procedure 05/22/2024 2:00 PM EDT Office Visit [facility] [address] [place] [phone] Monster Calvillo NP [address] [place] [phone] [facility] Start: 05-13-2024 Covid-19 Vaccine ( season) Covid-19 Vaccine () [facility] Start: 05-13-2024 Influenza vaccination Influenza Vacc ine (#1) [facility] Start: 05-09-2024 End: 05-09-2024 Patient encounter procedure 05/09/2024 10:00 AM EDT Office Visit [facility] [address] [place] [address] Jr. Sakina Cardenas, [address] [facility] [address] [place] [address] [facility] Start: 11-07-2023 End: 11-07-2023 Patient encounter procedure 11/07/2023 2:30 PM EST Office Visit [facility] [address] [place] [address] Shaikh Denis MD [address] [place] [phone] [facility] Start: 10-17-2023 End: 10-17-2023 Patient encounter procedure 10/17/2023 10:15 AM EST Office Visit [facility] [address] [place] [phone] Shaikh Denis MD [address] [facility] [place] [id number] Arrived [facility] IM Comment on above: Arrived Start: 09-12-2023 Advance Directive Discussion Advance Directive Discussion [facility] Start: 11-30-2012 Screening for osteoporosis Bone Dens ity Screening [facility] Start: 11-30-1997 Shingrix Vaccine (1 of 2) Reyes grix Vaccine (1 of 2) [facility] Start: 11-30-1992 Diabetes Screening Diabetes Screenin g [facility] Start: 11-30-1966 Urine microalbumin profile DTa P,Tdap,Td Vaccine (1 - Tdap) [facility] Start: 11-30-1965 Anxiety Screening Anxiety Screening [facility] Start: 11-30-1965 Depression Screening Depression Scre ening [facility] Start: 11-30-1965 Hepatitis C screening Hepatitis C Sc reening [facility] Start: 1945 Screening for malign ant neoplasm of colon [facility] End: 06-21-2025 CT Shoulder - left WO contrast CT SHOULDER WO IVCON LEFT Radiology Routine 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) 1 Occurrences starting 05/22/2024 until 06/21/2025 [facility] Work Phone: Comment on above: 1 Occurrences starti ng 05/22/2024 until 06/21/2025 Iron and Iron bindin g capacity panel - Serum or Plasma Iron and TIBC Lab Routine 08/24/2024 2:30 PM EST [facility] Work Phone: Immunizations Immunization Date Immunization Notes Care Provider Fa [facility] 08-25-2023 influenza virus vacc ine, unspecified formulation Ortega ALEXANDER [facility] [place] 08-25-2023 Influenza, Seasonal, Quadrivalent, Adjuvanted Shaikh Cira CUBA Work Phone: [facility] 08-25-2023 RSV, recombinant, protein subunit RSVpreF, adjuvant reconstitu, 120mcg/0.5mL, PF (Arexvy) Shaikh Cira CUBA Work Phone: [facility] 07-08-2022 influenza virus vacc ine, unspecified formulation Ortega ALEXANDER [facility] 07-08-2022 Influenza, Seasonal, Quadrivalent, Adjuvanted Shaikh Cira CUBA Work Phone: [facility] 08-20-2021 influenza virus vacc ine, unspecified formulation Ortega PARKL [facility] 08-20-2021 Influenza, Seasonal, Quadrivalent, Adjuvanted Shaikh Cira CUBA Work Phone: [facility] 08-20-2021 pneumococcal polysaccharide vaccine, 23 valent Ortega ALEXANDER [facility] 11-18-2020 SARS-CoV-2 (COVID-19 ) mRNA-1273 vaccine Ortega NILL [facility] 10-20-2020 SARS-CoV-2 (COVID-19 ) mRNA-1273 vaccine Ortega NILL [facility] 08-04-2020 influenza virus vacc ine, unspecified formulation Ortega NILL [facility] 08-04-2020 Influenza, Seasonal, Quadrivalent, Adjuvanted Shaikh Cira CUBA Work Phone: [facility] 08-04-2020 pneumococcal conjuga te vaccine, 13 valent Ortega NILAnkur [facility] 08-06-2019 influenza virus vacc ine, unspecified formulation Ortega ALEXANDER [facility] 08-06-2019 influenza, high dose seasonal, preservative-free Shaikh Cira CUBA Work Phone: [facility] 07-05-2017 influenza virus vacc ine, unspecified formulation Ortega CATHERINE [facility] 07-05-2017 pneumococcal conjuga te vaccine, 13 valent Ortega CATHERINE [facility] 07-05-2017 Seasonal trivalent influenza vaccine, adjuvanted, preservative free Shaikh Cira CUBA Work Phone: [facility] 06-29-2016 influenza virus vacc ine, unspecified formulation Ortega ALEXANDER [facility] 06-29-2016 Seasonal trivalent influenza vaccine, adjuvanted, preservative free Shaikh Cira CUBA Work Phone: [facility] 06-25-2015 influenza virus vacc ine, unspecified formulation Ortega ALEXANDER [facility] 06-25-2015 influenza, injectabl e, quadrivalent, contains preservative Shaikh Cira CUBA Work Phone: [facility] 06-12-2015 influenza virus vacc ine, unspecified formulation Ortega ALEXANDER [facility] 06-12-2015 seasonal influenza, intradermal, preservative free Shaikh Cira CUBA Work Phone: [facility] 07-12-2014 influenza virus vacc ine, unspecified formulation Ortega ALEXANDER [facility] 07-12-2014 influenza, injectabl e, quadrivalent, contains preservative Shaikh Cira CUBA Work Phone: [facility] 08-07-2013 influenza virus vacc ine, unspecified formulation Ortega ALEXANDER [facility] 08-07-2013 influenza, seasonal, injectable Shaikh Cira CUBA Work Phone: [facility] Payers Date Payer Category Payer Medicaid [employer] MEDICARE A DVANTAGE [id number] 2023 Private Health Insurance 2023 Private Health Insurance [facility] [id number] 2023 Self-pay [id number] 2023 Managed Care HMO (unspecified) [employer] A[employer]NA [id number] 2023-Present [address] [place] [address] HMO [id number] 2007 Medicare [id number] 1959 Medicare [id number] 1959 Private Health Insurance [facility] [id number] 1947 Unknown [id number] 2.16.840.1.556712.3.579.2. 647 1947 Unknown [id number] 2.16.840.1.491864.3.579.2. 593 1947 Unknown [id number] 2.16.840.1.935570.3.579.2. 593 1947 Unknown [id number] 2.16.840.1.567316.3.579.2. 593 1947 Unknown [id number] 2.16.840.1.135327.3.579.2. 593 1947 Unknown [id number] 2.16.840.1.975047.3.579.2. 593 1947 Unknown [id number] 2.16.840.1.137749.3.579.2. 593 1947 Unknown [id number] 2.16.840.1.853122.3.579.2. 593 1947 Unknown [id number] 2.16.840.1.917051.3.579.2. 593 1947 Unknown [id number] 2.16.840.1.793637.3.579.2. 593 1947 Unknown [id number] 2.16.840.1.601049.3.579.2. 593 1947 Unknown [id number] 2.16.840.1.957697.3.579.2. 593 1947 Unknown [id number] 2.16.840.1.632110.3.579.2. 593 1947 Unknown [id number] 2.16.840.1.907286.3.579.2. 593 1947 Unknown [id number] 2.16.840.1.603451.3.579.2. 593 1947 Unknown [id number] 2.16.840.1.557833.3.579.2. 593 1947 Unknown [id number] 2.16.840.1.428594.3.579.2. 593 1947 Unknown [id number] 2.16.840.1.866638.3.579.2. 593 1947 Unknown [id number] 2.16.840.1.916164.3.579.2. 593 1947 Unknown [id number] 2.16.840.1.952328.3.579.2. 593 1947 Unknown [id number] 2.16.840.1.872949.3.579.2. 593 1947 Unknown [id number] 2.16.840.1.679524.3.579.2. 593 1947 Unknown [id number] 2.16.840.1.091962.3.579.2. 593 1947 Unknown [id number] 2.16.840.1.507228.3.579.2. 593 1947 Unknown [id number] 2.16.840.1.483207.3.579.2. 593 1947 Unknown [id number] 2.840.1.004202.3.579.2. 593 1947 Unknown [id number] 2.840.1.177469.3.579.2. 593 1947 Unknown [id number] 2.840.1.788056.3.579.2. 727 1947 Unknown [id number] 2.840.1.182574.3.579.2. 727 1947 Unknown [id number] 2.840.1.612545.3.579.2. 1259 1947 Unknown [id number] .840.1.387938.3.579.2. 1259 1947 Unknown [id number] 2.840.1.846596.3.579.2. 1259 1947 Unknown [id number] 2.16.840.1.908315.3.579.2. 1259 1947 Unknown [id number] 2.16.840.1.265609.3.579.2. 1259 1947 Unknown [id number] 2.16840.1.157167.3.579.2. 1259 1947 Unknown [id number] 2.16.840.1.975438.3.579.2. 1259 1947 Unknown [id number] 2.16.840.1.635569.3.579.2. 1258 1947 Unknown [id number] 2.16.840.1.464806.3.579.2. 1258 1947 Unknown [id number] 2.16.840.1.845106.3.579.2. 1258 1947 Unknown [id number] 2.16.840.1.029972.3.579.2. 1258 1947 Unknown [id number] 2.16.840.1.948027.3.579.2. 1258 1947 Unknown [id number] 2.16.840.1.983400.3.579.2. 1258 1947 Unknown [id number] 2.16.840.1.114731.3.579.2. 1258 1947 Unknown [id number] 2.16.840.1.417616.3.579.2. 1258 1947 Unknown [id number] 2.16.840.1.162769.3.579.2. 1258 1947 Unknown [id number] 2.16.840.1.275511.3.579.2. 1947 Unknown [id number] 2.16.840.1.804642.3.579.2. 1947 Unknown [id number] 2.16.840.1.200740.3.579.2. 1947 Unknown [id number] 2.16.840.1.849146.3.579.2. 1947 Unknown [id number] 2.16.840.1.000685.3.579.2. 196 Medicare Medicare Outpatient [id number] Unknown [facility] [place] [id number] Unknown [id number] 2.16.840.1.694038.3.579.2. 531 Unknown [id number] 2.16.840.1.413210.3.579.2. 531 Unknown [id number] 2.16.840.1.186007.3.579.2. 531 Unknown [id number] 2.16840.1.984411.3.579.2. 531 Unknown [id number] 2.16.840.1.500982.3.579.2. 531 Unknown [id number] 2.16.840.1.686527.3.579.2. 531 Unknown [id number] 2.16.840.1.902194.3.579.2. 531 Social History Date Type Detail Facility Start: 08-30-2023 End: 05-31-2024 Sex Assigned At [facility] Start: 1945 Sex Assigned At Female [facility] Start: 08-18-2023 End: 12-29-2023 Tobacco smoking status [facility] Ex-smoker [facility] History of [...] often do you att end islam or scientologist services? Patient refused [facility] Do you [...] money to buy more. DK or Refused [facility] Start: 08-18-2023 Alcohol Comment (Audit-C) : Negative [facility] Start: 1945 Sex Assigned At Not on file [facility] Start: 04-27-2013 End: 05-22-2024 Tobacco smoking status NHIS Never smoked tobacco (finding) [facility] Start: 05-22-2024 Tobacco use and exposure Smokeless tobacco non-user [facility] Start: 05-22-2024 End: 05-31-2024 Alcoholic beverage intake Current drinker of alcohol (finding) [facility] History of tobacco use Passive smoker [facility] Start: 11-07-2023 Alcohol Comment OCCASSIONAL [facility] Functional Status Date Assessment Result Facility 03-02-2024 Functional Status N/A [facility] [place] Clinical Notes 08-26-2021 to 08-16-2024 Renny Hansen [...] MOUTH EVERY DAY 90 tablet 0 HYDROcodone-acetaminophen ([place]) 5-325 MG tablet Take 1 tablet by [...] As Previously Scheduled. documented in this encounter [facility] 08-02-2024 History of Present illness Narrative Images [...] MOUTH EVERY DAY 90 tablet 0 HYDROcodone-acetaminophen ([place]) 5-325 MG tablet Take 1 tablet by [...] Date Anemia Atrial fibrillation (CMS/HCC) Centrilobular emphysema ([facility]/HCC) COPD (chronic obstructive pulmonary disease) ([facility]) COPD exacerbation ([facility]/HCC) 10/17/2023 Coronary artery disease ([facility]/HCC) Diastolic dysfunction Essential hypertension ([facility]/HCC) History of tobacco abuse Nonalcoholic steatohepatitis (LOJA) Obstructive sleep apnea Osteoarthritis Paroxysmal atrial fibrillation ([facility]/HCC) Peptic ulcer disease Secondary pulmonary arterial hypertension ([facility]/HCC) Sick sinus syndrome ([facility]/HCC) Spinal stenosis, lumbar region with neurogenic claudication SVT (supraventricular tachycardia) ([facility]) URTI (acute upper respiratory infection) Vertigo Vitamin [...] Greater than 25 minutes was spent in [id number] consultation and coordination of care. Persistent atrial fibrillation (HCC) (CMS/HCC) Nausea - FL upper GI double contrast w KUB; Future Follow up in about 2 weeks (around 08/16/2024) for Test/Lab Review. documented in this encounter [facility] 07-25-2024 Telephone encounter Note My chart message. [facility] 07-25-2024 Miscellaneous Notes My chart message. documented in this encounter [facility] 07-24-2024 History of Present illness Narrative Images [...] arm. Pt does see pain magment in [place]. Sees their office next week on the [...] MOUTH EVERY DAY 90 tablet 0 HYDROcodone-acetaminophen ([place]) 5-325 MG tablet Take 1 tablet by [...] Neck pain on left side Can continue [place] as needed for pain. Radicular pain in [...] (CMS/HCC) The patient is seeing a medical billing representative for this condition, treatment is deferred to that specialist. Correspondence from that specialist and any available testing were reviewed during today's visit. She will be having Cardiac Catheterization for further evaluation of the pulmonary hypertension. Other thrombophilia Will recheck with updated labs. Follow up in about 4 weeks (around 08/21/2024) for Next scheduled follow-up with Dr. Hansen. documented in this encounter [facility] 07-24-2024 Telephone encounter Note Will discuss with pt at today's OV [facility] 07-24-2024 Miscellaneous Notes Will discuss with pt at [facility]'s OV Call after mammogram with plan. See last OV. documented in this encounter [facility] 07-18-2024 Note [place] [facility] Subjective Breann Starks is a 78 y.o. year old female patient being seen for Atrial Fibrillation, PACEMAKER, Coronary Artery Disease, Hypertension, Sinus node dysfunction (HAS BOSTON PACER), Obesity, and Edema Patient Active Problem List Diagnosis Disorder of bursae of shoulder region Chronic obstructive lung disease (CMS/HCC) Atherosclerosis of [place] coronary artery of [place] heart without angina pectoris Diaphragmatic hernia Edema [...] normal EKG Ech (more content not included)... [facility] 07-05-2024 Telephone encounter Note Call after mammogram with plan. See last OV. [facility] 07-05-2024 History of Present illness [...] MOUTH EVERY DAY 90 tablet 0 HYDROcodone-acetaminophen ([place]) 5-325 MG tablet Take 1 tablet by [...] (CMS/HCC) History of tobacco abuse Nonalcoholic steatohepatitis (LJOA) Obstructive sleep apnea Osteoarthritis Paroxysmal atrial fibrillation [...] Greater than 45 minutes was spent in cyyj-ea-euwg consultation and coordination of care. Follow up in about 4 months (around 11/05/2024) for Call after mammogram. documented in this encounter [facility] 06-02-2024 History of Present illness Narrative Associated [...] cough, significant edema noted to L side. LUE, LLE; Did not take Lasix today- was [...] suspected CHF exacerbation. documented in this encounter [facility] 05-22-2024 Note HNO ID: [id number] Author: BOO BUCHANAN PA-C Service: ? Author Type: Physician Radiology Tech Type: Progress Notes Filed: 05/22/2024 13:53 Note [...] She was recommended for second opinion at [facility]. She also had a CRP and ESR [...] No date: COPD (chronic obstructive pulmonary disease) ([facility]) SOCIAL HISTORY: Tobacco Use: Never EXAMINATION: GENERAL: [...] 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 ([facility]) T84.84XA CT SHOULDER WO IVCON LEFT Z96.612 [...] of the hardware. Bone scan performed at [facility]'s to be uploaded to the system. Boo Buchanan (more content not included)... [facility] 05-22-2024 History of Present illness Narrative [...] She was recommended for second opinion at [facility]. She also had a CRP and ESR [...] No date: COPD (chronic obstructive pulmonary disease) ([facility]) SOCIAL HISTORY: Tobacco Use: Never EXAMINATION: GENERAL: [...] 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 ([facility]) T84.84XA CT SHOULDER WO IVCON LEFT Z96.612 [...] of the hardware. Bone scan performed at [facility] to be uploaded to the system. Boo Buchanan PA-C documented in this encounter [facility] 05-22-2024 Note HNO ID: [id number] Author: JYOTHI CRUZ RT(R) Service: ? Author [...] PATIENT PRESENTS WITH AN IMPLANTABLE OR ATTACHED LAMINATOR: No RADIOLOGY DEPARTMENT: General X-ray: Exam(s) Completed: Upper Extremity X-Ray(s): Shoulder, AP / TRUE AP / AXILLARY / SUPRA OUTLET left PERIPHERAL IV DATA: Not applicable SIGNED BY: RT Chaparrita(Dario) May 22, 2024 1:25 PM [facility] 05-22-2024 History of Present illness Narrative [...] PATIENT PRESENTS WITH AN IMPLANTABLE OR ATTACHED LAMINATOR: No RADIOLOGY DEPARTMENT: General X-ray: Exam(s) Completed: Upper Extremity X-Ray(s): Shoulder, AP / TRUE AP / AXILLARY / SUPRA OUTLET left PERIPHERAL IV DATA: Not applicable SIGNED BY: RT Chaparrita(R) May 22, 2024 1:25 PM documented in this encounter [facility] 05-09-2024 History of Present illness Narrative Images from the original note were not included. HISTORY OF PRESENT ILLNESS: EST PT Breann Starks is an 78 y.o. @ female. (EST PT ; LAST APPT W/ QUINN) RECHECK (L) SHOULDER PAIN ; HERE FOR BONE SCAN RESULTS 05/02/24 @ [facility] (VERBAL GIVEN PER QUINN - REFERRAL SENT TO DR AMIN) & LABS 05/09/24 @ [facility] (CBC / SED RATE / CRP) S/P (L) REVERSE TSR 12/29/21 - DR AMIN XRAYS, (L) SHOULDER & C-SPINE 04/16/24 IN EPIC ATTEMPTED MRI @ [facility] - UNABLE TO OBTAIN IMAGES D/T PACEMAKER PLACEMENT BONE SCAN 05/02/24 @ [facility] LABS 05/09/24 @ [facility] (CBC / SED RATE / CRP) NO MDP / PREDNISONE NO RECENT PHYSICAL THERAPY PAIN MGMT @ [facility] (LBP) CONTINUES TO HAVE CONSTANT DISCOMFORT IN [...] HER (L) ARM TO USE A BACK GLACING MACHINE TENDER ON HER BACK ALLERGIES: Allergies Allergen Reactions Nsaids Other Reaction(s): HEART ISSUES Digoxin Rash Wound Dressing Adhesive Rash HOME MEDICATIONS: Current Outpatient Medications Medication Instructions apixaban (ELIQUIS) 5 mg, Oral, 2 times daily ferrous sulfate 325 mg, Oral, Daily with breakfast, Do not crush, chew, or split. 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 Wrist flex/ ext. Symmetric 5/5 [...] I am acting as scribe for Dr. Cardenas/harrison, PLAN: We have reviewed prior (L) shoulder [...] Sakina Cardenas D.O. documented in this encounter [facility] 03-02-2024 Note Chief Complaint consultation for anemia HPI Staff 78 year old female presents on consultation from [facility] [place] [facility] for anemia. Labs completed yesterday with [...] PSVT, spinal stenosis, cervical radiculopathy; referred from [facility] ED for anemia, low iron, and [...] (paroxysmal supraventricular t (more content not included)... [facility] Comment on above: Result Comment: Elec tronically Signed By: CATHERINE CUBA, Ortega Quinonez\Date and Time Signed: 03/02/24 13:01 EDT 01-17-2024 Note Cardiovascular Medic [facility] SUBJECTIVE Chief Complaint Patient presents with Atrial Fibrillation Breann Starks is a 78 y.o. female here for follow-up. HPI PMHx: A-fib, atrial tachycardia s/p ablation 2005, sick sinus syndrome s/p PPM 10/2020 dual-chamber [employer], COPD, mild CAD s/p cardiac cath 2010, SHAWANDA noncompliant with mask, and obesity. She has been doing well since last seen. No significant changes. Denies c/o CP, dyspnea, orthopnea, PND, LE edema, dizziness/LH, palpitations, syncope. Patient Active Problem List Diagnosis Disorder of bursae of shoulder region Chronic obstructive lung disease (CMS/HCC) Atherosclerosis of [place] coronary artery of [place] heart without angina pectoris Diaphragmatic hernia Edema [...] Final Monocytes Absolu (more content not included)... [facility] 01-17-2024 Note Patient here for 6 m o follow up persistent afib, CAD, hypertension, and sinus node dysfunction. Her device was interrogated in the office last month. Denies chest pain, SOB, lightheadedness/syncope, and bleeding on Eliquis. Says she feels great. Review of Systems Musculoskeletal: Positive for back pain. Neurological: Positive for numbness. All other systems reviewed and are negative. [facility] 10-07-2021 Evaluation note Encounter Date Diagnosis Assessment Notes Sep, LOJA (nonalcoholic steatohepatitis ) (ICD-10 - K75.81) OBTAIN FIBROSURE RESULTS FROM [facility] REASSURANCE ON RESULTS PT ENCOURAGED WEIGHT LOSS RTO ONE YEAR WITH LABS ANNUALLY Sep, Unspecified cirrhosis of liver (ICD-10 - K74.60) [facility] Other 12-15-2021 Evaluation note* Encounter Date Diagnosis Assessment Notes Treatment Notes Treatment Clinical Notes Aug, Nonalcoholic steatohepatitis (LOJA) (ICD-10 - K75.81) RTO 6-8 WEEKS Aug, Unspecified cirrhosi s of liver (ICD-10 - K74.60) Aug, Morbid obesity (ICD- 10 - E66.01) [facility] Other Evaluation + Plan note No data available for this section [facility] Evaluation noteNo assessment information available [facility] Work Phone: Evaluation note* Diagnosis 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)- Primary Left shoulder pain, unspecified chronicity Left shoulder pain, unspecified chronicity [facility], unspecified chronicity [facility] Diagnosis Acute on chronic diastolic (congestive) heart failure (CMS/HCC) [facility] Diagnosis Essential hypertension (CMS/HCC)- Primary Unspecified [...] syndrome, unspecified type [facility] Diagnosis Essential hypertension (CMS/HCC)- Primary [...] Unspecified essential hypertension documented in this encounter [facility]* Diagnosis Essential hypertension (CMS/HCC)- [...] Other thrombophilia (CMS/HCC) documented in this encounter [facility]* Diagnosis Essential hypertension (CMS/HCC)- [...] blood loss (chronic) documented in this encounter [facility]* Diagnosis Essential hypertension (CMS/HCC)- [...] Nausea Nausea alone [facility] in [facility] Diagnosis Essential hypertension (CMS/HCC)- Primary [...] failure (CMS/HCC)- Primary [facility] [...] [facility] History pacemaker Hospitalization History see above [facility] Other Hospital Discharge instructions No data available for this section [facility] Progress note No data available for this section [facility] Reason for referral (narrative)* Diagnostic Procedure Only (Routine) - Closed Specialty Diagnoses / Procedures Referred By Millie egan Referred To Contact XR IMAGING Diagnoses Left shoulder pain, unspecified chronicity Procedures XR SHOULDER ORTHO 4V AP/TRUE AP/LAT/OUTLET LEFT RADEX SHOULDER COMPLETE MINIMUM 2 VIEWS Boo Buchanan PA-C [address] [place] [address] [place] [address] Referral ID Status Reason Start Date Expiration Date V isits Requested Visits Authorized [id number] Closed Auto-Generate d Referral 05/08/2024 06/07/2025 1 1 [facility] Diagnostic Procedure Only (Routine) - Closed Specialty Diagnoses / Procedures Referred By Millie egan Referred To Contact XR IMAGING Diagnoses Left shoulder pain, unspecified chronicity Procedures XR SHOULDER ORTHO 4V AP/TRUE AP/LAT/OUTLET LEFT RADEX SHOULDER COMPLETE MINIMUM 2 VIEWS Boo Buchanan PA-C [address] [place] [address] [place] [address] Referral ID Status Reason Start Date Expiration Date V isits Requested Visits Authorized [id number] Closed Auto-Generate d Referral 05/08/2024 06/07/2025 1 1 [facility] Summary Purpose Family History No Family History [...] Chronic left shoulder pain Monster Calvillo, ELBERT [address] [place] [id number] Referral ID Status Reason Start Date Expiration Date V isits Requested Visits Authorized [id number] Pending Review 05/16/2024 11/12/2024 1 1 Specialty Diagnoses / Procedures Referred By Contac t Referred To Contact CT IMAGING Diagnoses 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) Procedures CT SHOULDER WO IVCON LEFT CT UPPER EXTREMITY W/O CONTRAST MATERIAL Boo Buchanan PA-C [address] [place] [address] [place] [address] Referral ID Status Reason Start Date Expiration Date Visits Requested Visits Authorized [id number] New Request Auto-Generat ed Referral 05/22/2024 06/21/2025 1 1 Specialty Diagnoses / Procedures Referred By Contac t Referred To Contact XR IMAGING Diagnoses Left shoulder pain, unspecified chronicity Procedures XR SHOULDER ORTHO 4V AP/TRUE AP/LAT/OUTLET LEFT RADEX SHOULDER COMPLETE MINIMUM 2 VIEWS Boo Buchanan PA-C [address] [place] [address] [place] [address] Referral ID Status Reason Start Date Expiration Date V isits Requested Visits Authorized [id number] Closed Auto-Generate d Referral 05/08/2024 06/07/2025 1 1 Additional Source Comments INFORMATION SOURCE (unrecogn ized section and content) DATE CREATED AUTHOR 10/23/2021 [facility] DATE CREATED AUTHOR AUTHOR'S ORGANIZ ATION 01/22/2022 [facility] DATE CREATED AUTHOR AUTHOR'S ORGANIZ ATION 02/18/2023 [facility] DATE CREATED AUTHOR AUTHOR'S ORGANIZ ATION 03/11/2024 [facility] DATE CREATED AUTHOR AUTHOR'S ORGANIZ ATION 05/24/2024 [facility] DATE CREATED AUTHOR AUTHOR'S ORGANIZ ATION 07/20/2024 [facility] DATE CREATED AUTHOR AUTHOR'S ORGANIZ ATION 08/05/2024 [facility] DATE CREATED AUTHOR AUTHOR'S ORGANIZ ATION 09/03/2024 [facility] DATE CREATED AUTHOR AUTHOR'S ORGANIZ ATION 09/11/2024 [facility] REASON FOR VISIT (unrecogniz [...] Pablo Cruz PA [address] [facility] [address] [place] [address] González Alvarado MD [address] [place] [address] Referral ID Status Reason Start Date Expiration Date V isits Requested Visits Authorized [id number] Authorized 05/08/2024 09/11/2024 99 99 Reason Comments Med Refill Reason Comments Establish Care Previous pcp Dr Damian adSees cardiology-dr Ferrell. G-- orthopedic Hypertension Reason Comments Results EMG RESULTS [...] October 11, 2023 End: October 11, 2023 Well Tester Relationship Specialty Start Date End Date Shaikh [...] May 02, 2024 End: May 02, 2024 Well Tester Relationship Specialty Start Date End Date Luisana Johnson MD [address] [place] PCP - General 01/05/06 Pedro Pablo Cruz MD [address] [place] [address] Referring Infectious Diseases 05/07/24 Well Tester Relationship Specialty Start Date End Date Luisana Johnson MD [address] [place], [facility] PCP - General 01/05/06 Pedro Pablo Cruz MD [address] [place] [address] Referring Infectious Diseases 05/07/24 Well Tester Relationship Specialty Start Date End Date Luisana Johnson MD [address] [place] [address] PCP - General 01/05/06 Pedro Pablo Cruz MD [address] [place], [place] [id number] Referring Infectious Diseases 05/07/24 Well Tester Relationship Specialty Start Date End Date Wesley Long MD [address] [place] [address] PCP - General Family Medicine 05/17/24 Monster Calvillo NP [address] [place] [address] Nurse Practitioner Family Medicine 05/17/24 Well Tester Relationship Specialty Start Date End Date Wesley Long MD [address] [place] [phone] PCP - General Family Medicine 05/17/24 Monster Calvillo NP [address] [place] [address] Nurse Practitioner Family Medicine 05/17/24 Well Tester Relationship Specialty Start Date End Date Wesley Long MD [address] [place] [phone] PCP - General Family Medicine 05/17/24 Monster Calvillo NP [address] [place] [address] Nurse Practitioner Family Medicine 05/17/24 Well Tester Relationship Specialty Start Date End Date Wesley Long MD [address] [place] [address] PCP - General Family Medicine 05/17/24 Monster Calvillo NP [address] [place] [address] Nurse Practitioner Family Medicine 05/17/24 Well Tester Relationship Specialty Start Date End Date Wesley Long MD [address] [place] [address] PCP - General Family Medicine 05/17/24 Monster Calvillo NP [address] [place] [address] Nurse Practitioner Family Medicine 05/17/24 Well Tester Relationship Specialty Start Date End Date Wesley Long MD [address] [place] [address] PCP - General Family Medicine 05/17/24 Monster Calvillo NP [address] [place] [address] Nurse Practitioner Family Medicine 05/17/24 Well Tester Relationship Specialty Start Date End Date Wesley Long MD [address] [place] [address] PCP - General Family Medicine 05/17/24 Monster Calvillo NP [address] [place] [address] Nurse Practitioner Family Medicine 05/17/24 Well Tester Relationship Specialty Start Date End Date Wesley Long MD [address] [place] [address] PCP - General Family Medicine 05/17/24 Monster Calvillo NP [address] [place] [address] Nurse Practitioner Family Medicine 05/17/24 Well Tester Relationship Specialty Start Date End Date Wesley Long MD [address] [place] [address] PCP - General Family Medicine 05/17/24 Monster Calvillo NP [address] [place] [address] Nurse Practitioner Family Medicine 05/17/24 Well Tester Relationship Specialty Start Date End Date Wesley Long MD [address] [place] [address] PCP - General Family Medicine 05/17/24 Monster Calvillo NP [address] [place] [address] Nurse Practitioner Family Medicine 05/17/24 Well Tester Relationship Specialty Start Date End Date Wesley Long MD [address] [place] [address] PCP - General Family Medicine 05/17/24 Monster Calvillo NP [address] [place] [address] Nurse Practitioner Family Medicine 05/17/24 Well Tester Relationship Specialty Start Date End Date Wesley Long MD [address] [place] [address] PCP - General Family Medicine 05/17/24 Monster Calvillo NP [address] [place] [address] Nurse Practitioner Family Medicine 05/17/24 Well Tester Relationship Specialty Start Date End Date Wesley Long MD [address] [place] [address] PCP - General Family Medicine 05/17/24 Monster Calvillo NP [address] [place] [address] Nurse Practitioner Family Medicine 05/17/24 Well Tester Relationship Specialty Start Date End Date Wesley Long MD [address] [place] [address] PCP - General Family Medicine 05/17/24 Monster Calvillo NP [address] [place] [address] Nurse Practitioner Family Medicine 05/17/24 Well Tester Relationship Specialty Start Date End Date Shaikh Denis MD [address] [place] [address] PCP - General Internal Medicine 10/17/23 Well Tester Relationship Specialty Start Date End Date Shaikh Denis MD [address] [place] [address] PCP - General Internal Medicine 10/17/23 Well Tester Relationship Specialty Start Date End Date Shaikh Denis MD [address] [place] [address] PCP - General Internal Medicine 10/17/23 Well Tester Relationship Specialty Start Date End Date Wesley Long MD [address] [place] [phone] PCP - General Family Medicine 05/17/24 Monster Calvillo NP [address] [place] [address] Nurse Practitioner Family Medicine 05/17/24 Well Tester Relationship Specialty Start Date End Date Wesley Long MD [address] [place] [address] PCP - General Family Medicine 05/17/24 Monster Calvillo NP [address] [place] [address] Nurse Practitioner Family Medicine 05/17/24 Goals (unrecognized [...] or prosecute any alcohol or drug abuse patient.[facility] CenterIn the event this information is protected by the [facility] Confidentiality of Alcohol and Drug Abuse Patient Records regulations: The Federal rules restrict any use of the information to criminally investigate or prosecute any alcohol or drug abuse patient.[facility] CenterIn the event this information is protected by the Federal Confidentiality of Alcohol and Drug Abuse Patient Records regulations: The Federal rules restrict any use of the information to criminally investigate or prosecute any alcohol or drug abuse patient.[facility] FOR RECORDS PERTAINING TO PATIENTS WHO ARE [...] BE BASED ON THE PRIMARY CLINICAL RECORDS. [facility]. provides no warranty or guarantee of the accuracy or completeness of information in this document.
--- NOTE | 2024-09-13 09:34 | P.CN_ITS ---
Consult Note: HPI Data of Consult Patient: known to practice within the last 3 years Requesting Physician: Claire Clement NP Primary Care Provider: FAVIAN LUNA Consult Narrative Reason for consult: chronic neck, left shoulder and LUE pain Narrative: Breann Starks a pleasant 78 year old female presents for evaluation of chronic left shoulder, neck and LUE pain with numbness tingling and weakness. Hx of left reverse total shoulder with subsequent pain, however 6 months ago she noticed increase in LUE pain/weakness. Pt has been cleared by orthopedics. failed HEP/PT greater than [address] shows extensive DDD, and EMG of BUE reveals chronic left C6 radiculopathy. Pt had been on gabapentin which caused side effects and she discontinued, cannot take NSAIDs on eliquis. mild relief from tylenol, baclofen, and hydrocodone-acetaminophen without side effects. Pain today 7/10 burning pressure with numbness tingling and weakness of LUE. recently underwent left C5/6 C6/7 TFESI with no improvement per pt as well as left suprascapular/axillary nerve block with mild relief. previously was converted to NNCP due to marijuana use, pt reports she ate a brownie at a [employer] not knowing it had marijuana in it. cc:: CC: Claire Clement NP Review of Systems ROS Status of ROS 10 or more systems reviewed and unremark able except as noted in history and below Musculoskeletal Reports: neck pain and extremity pain [facility] Medical History (Updated 09/13/24 @ 09:36 by Claire Clement NP) Arthritis ?M19.90 - Unspecified osteoarthritis, unspecified site (ICD-10) Chronic obstructive pulmonary disease ?J44.9 - Chronic obstructive pulmonary disease, unspecified (ICD-10) Peptic ulcer ?K27.9 - Peptic ulcer, site unspecified, unspecified as acute or chronic, without hemorrhage or perforation (ICD-10) Dyspnea on exertion ?R06.09 - Other forms of dyspnea (ICD-10) Anemia ?D64.9 - Anemia, unspecified (ICD-10) Hypertension ?I10 - Essential (primary) hypertension (ICD-10) Extremity edema ?R60.0 - Localized edema (ICD-10) Congestive heart failure ?I50.9 - Heart failure, unspecified (ICD-10) Atrial fibrillation ?I48.91 - Unspecified atrial fibrillation (ICD-10) Shoulder pain ?M25.519 - Pain in unspecified shoulder (ICD-10) Fatty liver ?K76.0 - Fatty (change of) liver, not elsewhere classified (ICD-10) History of shingles ?Z86.19 - Personal history of other infectious and parasitic diseases (ICD- 10) Osteoarthritis ?M19.90 - Unspecified osteoarthritis, unspecified site (ICD-10) Pacemaker ?Z95.0 - Presence of cardiac pacemaker (ICD-10) Hiatal hernia ?K44.9 - Diaphragmatic hernia without obstruction or gangrene (ICD-10) Low back pain ?M54.50 - Low back pain, unspecified (ICD-10) Irregular heart beat ?I49.9 - Cardiac arrhythmia, unspecified (ICD-10) Surgical History History of shoulder replacement ?Z96.619 - Presence of unspecified artificial shoulder joint (ICD-10) S/P rotator cuff repair ?Z98.890 - Other specified postprocedural states (ICD-10) History of colonoscopy ?Z98.890 - Other specified postprocedural states (ICD-10) S/P YANELI-BSO ?Z90.710 - Acquired absence of both cervix and uterus (ICD-10) ?Z90.722 - Acquired absence of ovaries, bilateral (ICD-10) ?Z90.79 - Acquired absence of other genital organ(s) (ICD-10) H/O cardiac catheterization ?Z98.890 - Other specified postprocedural states (ICD-10) H/O arthroscopy of shoulder ?Z98.890 - Other specified postprocedural states (ICD-10) H/O arthroscopy of knee ?Z98.890 - Other specified postprocedural states (ICD-10) History of appendectomy ?Z90.49 - Acquired absence of other specified parts of digestive tract (ICD- 10) History of total knee arthroplasty ?Z96.659 - Presence of unspecified artificial knee joint (ICD-10) Social History Within the past year, how often did you have a drink containing alcohol: monthly or less Smoking status: Former smoker Non-prescribed substance use: denies use Previous occupational history: retired Highest level of school completed/degree received: high school graduate Little interest or pleasure in doing things: not at all Feeling down, depressed, or hopeless: not at all Meds Home Medications and Allergies Home Medications ?Medication ?Instructions ?Recorded ?Confirmed ?Type cholecalciferol (vitamin D3) 125 5,000 unit PO DAILY 02/16/23 09/10/24 History mcg (5,000 unit) tablet (Vitamin D3) flecainide 100 mg tablet 100 mg PO Q12H 02/16/23 09/10/24 History omeprazole 40 mg capsule,delayed 40 mg PO DAILY 02/16/23 09/10/24 History release spironolactone 25 mg tablet 25 mg PO DAILY 02/16/23 09/10/24 History (Aldactone) verapamil 180 mg tablet,extended 180 mg PO Q12H 02/16/23 09/10/24 History release (Calan SR) apixaban 5 mg tablet (Eliquis) 5 mg PO BID 05/11/23 09/10/24 History furosemide 40 mg tablet 40 mg PO DAILY 03/01/24 09/10/24 History naloxone 4 mg/actuation nasal 4 mg intranasal Q3M PRN opioid 05/17/24 09/10/24 Rx spray (Narcan) overdose #2 ea benzonatate 100 mg capsule 100 mg PO TID PRN cough #14 caps 05/25/24 09/10/24 Rx ipratropium 0.5 mg-albuterol 3 mg 3 ml inhalation Q6H PRN shortness 05/25/24 09/10/24 Rx (2.5 mg base)/3 mL nebulization of breath #90 mL soln baclofen 10 mg tablet 10 mg PO TID PRN muscle spasm #90 06/21/24 09/10/24 Rx tabs Allergies Allergy/AdvReac Type Severity Reaction Status Date / Time No Known Drug Allergies Allergy Verified 09/10/24 08:03 Exam Constitutional Documenting provider has reviewed patient's vital signs: yes Common normals: no apparent distress, oriented x3, healthy appearing, alert and well nourished General appearance: cooperative HENMT Common normals: normocephalic, hearing grossly normal bilaterally and moist oral mucous membranes Head and scalp: normocephalic Eye Common normals: PERRL Pupil: PERRL Neck & C-Spine Common normals: full ROM General: normal visual inspection Cervical spine: cervical ROM abnormal, pain with cervical ROM, cervical spine tenderness and trapezius muscle tenderness Other: negative spurlings sensation intact BUE strength 3/5 in LUE 5/5 in RUE Chest Common normals: inspection of chest normal Respiratory Common normals: normal respiratory effort, no retractions and no use of accessory muscles Extremity Left upper extremity: shoulder joint Other: limited ROM, moderate to severe pain Neuro Common normals: oriented x3, CN's II-XII intact bilaterally, moves all extremities, no focal motor deficits, no sensory deficits noted and deep tendon reflexes 2+ bilaterally Sensorium/orientation: alert Motor exam: strength 5/5 throughout and no movement abnormalities noted Psych Common normals: mental status grossly normal, thought process normal, cooperative, affect normal, speech normal and activity/motor behavior normal Speech: normal speech Thought process: normal thought process Assessment and Plan Assessment and Plan (1) Chronic left shoulder pain: (2) Degenerative disc disease, cervical: (3) Cervical radiculopathy: (4) Encounter for medication monitoring: Plan pt has been cleared by orthopedic surgery for left shoulder pain refer to dr orellana for evaluation of cervical radiculopathy, ddd, and spondylosis update UDS today, if pt is negative for marijuana/thc can restart hydrocodone 5- 325mg TID PRN moderate to severe pain and monitor closely continue HEP as tolerated f/u after consultation with Dr Orellana
== END 2024-09-13 09:08 | disposition home or self-care (01) ==
PROVIDERS: PCP Internal Medicine; Visit Provider Nurse Practitioner
DX: M25.552 Pain in left hip (principal); M50.30 Other cervical disc degeneration, unspecified cervical region; M54.12 Radiculopathy, cervical region; Z51.81 Encounter for therapeutic drug level monitoring
CPT/HCPCS: G0463

== ENCOUNTER 2024-10-03 10:21 | Outpatient (OUT) | payer MEDICARE, SELFPAY ==
[2024-10-03 11:20] LABS: Anion Gap 12.4; BUN Creatinine Ratio 21.9; Calcium 9.2 mg/dL (8.5-10.1); Carbon Dioxide 27.8 mmol/L (21.0-32.0); Chloride 104 mmol/L (98-107); Chol HDL Ratio 2.2; Cholesterol 130 mg/dL (<=200); Estimated GFR (African America >60 (>=60 mL/min/1.73m^2); Estimated GFR (Non-African Ame >60 (>=60 mL/min/1.73m^2); Glucose 97 mg/dL (74-106); HDL Cholesterol 59 mg/dL (40-60); LDL Cholesterol Calculated 56.8 mg/dL; Potassium 4.2 mmol/L (3.5-5.1); Sodium 140 mmol/L (136-145); Triglycerides 71 mg/dL (<=150); VLDL CHOLESTEROL 14.2 mg/dL
== END 2024-10-03 10:22 | disposition home or self-care (01) ==
LOC: LAB 10:22
PROVIDERS: PCP Internal Medicine; Visit Provider Internal Medicine Cardiovascular Disease
DX: E78.5 Hyperlipidemia, unspecified (principal); I10 Essential (primary) hypertension
CPT/HCPCS: 36415; 80048; 80061

== ENCOUNTER 2024-10-09 13:49 | Outpatient (OUT) | payer MEDICARE, SELFPAY ==
--- NOTE | 2024-10-09 13:54 | CA_ITS ---
Patient Name: MAXIMUS HERRMANN MR#: [id number] : 1945 Exam Date: 10/09/2024 Ordering Doctor: DR. KOLTON ALTMAN M.D. ECHOCARDIOGRAM REPORT PROCEDURE: CA ECHO DOPPLER COMPLETE INDICATIONS: Diastolic heart failure COMPARISON: None. DESCRIPTION: COMPLETE ECHOCARDIOGRAM Real-time transthoracic echocardiography with 2D, M-mode, spectral and color flow Doppler performed. QUALITY: Technical quality was good. LEFT VENTRICLE: Normal chamber size. Normal left ventricular wall thickness. Global left ventricular systolic function is normal. LV EF: Estimated left ventricular ejection fraction is 60%. DIASTOLIC: Grade III diastolic dysfunction. ATRIAL SEPTUM: LEFT ATRIUM: Moderate dilatation mild. RIGHT ATRIUM: Mild dilatation. RIGHT VENTRICLE: Normal chamber size. Normal right ventricular systolic function. Pacer wire present. TRICUSPID VALVE: Normal mobility and thickness. No stenosis with mild regurgitation. Moderate pulmonary hypertension. RVSP 58 mmHg MITRAL VALVE: Normal mobility and thickness. No evidence of mitral valve stenosis. There is no mitral annular calcification. Mild mitral regurgitation. AORTIC VALVE: Normal trileaflet appearance. Mildly diminished mobility. Doppler velocity suggest no aortic valve stenosis. Trivial aortic regurgitation. AORTIC ROOT: Normal diameter and appearance. PULMONIC VALVE: Normal thickness and mobility. No stenosis. Trivial regurgitation. PERICARDIUM: No evidence of pericardial effusion. IVC: Collapses with inspirations. Mild dilatation measuring 2.2 cm. PLEURA: CONCLUSION: 1. Normal left ventricular size and systolic function. Estimated LVEF is 60%. 2. Normal right ventricular size and systolic function. 3. Grade 3 diastolic dysfunction. 4. Mild mitral and tricuspid regurgitation. 5. Moderately elevated right-sided pressures. RVSP is 58 mmHg. 6. Doppler studies suggest elevated left-sided filling pressures. Adult Echocardiography Procedure Report Left Ventricle LVEDD (3.7 - 5.6 cm): 5.27 cm LVESD (2.2 - 4.0 cm): 3.33 cm LVIVS thickness (0.6 - 1.2 cm): 0.76 cm LVPW thickness (0.5 - 1.0 cm): 0.70 cm e': 0.09 m/s E - e': 15.61 LVOT Max Gradient: 0.00 mm[Hg], 3.92 mm[Hg] LVOT Area (cm2): 0.99 m/s, 0.01 m/s Peak Velocity (LVOT): 0.99 m/s, 0.01 m/s Mean Velocity (LVOT): 0.64 m/s LVOT Diameter 1.85 cm Left Ventricular Ejection Fraction: 60 % Left Atrium LA Volume Index (2D A2C): 32.07 ml/m2 Left Atrium Systolic Dimension: 4.81 cm Mitral Valve MV E to A Ratio: 2.84 Mitral Valve A-Wave Peak Velocity: 0.49 m/s Mitral Valve E-Wave Peak Velocity: 1.40 m/s Right Ventricle RV Internal Diastolic Dimension: 4.58 cm Aorta AO Root Diam: 2.90 cm Aortic Valve AoV Area (Peak Jovani): 1.39 cm2, 1.39 cm2, 0.01 cm2, 0.01 cm2 AoV Area (VTI): 1.49 cm2, 1.49 cm2 Deceleration [place]: 1.68 m/s2 Pressure Half-Time: 622.32 ms Peak Velocity(Antegrade Flow): 1.92 m/s Peak Gradient(Antegrade Flow): 14.75 mm[Hg] Mean Velocity(Antegrade Flow): 1.25 m/s Mean Gradient(Antegrade Flow): 7.14 mm[Hg] Velocity Time Integral: 41.21 cm Tricuspid Valve Peak Velocity (Regurgitant Flow): 2.86 m/s, 3.52 m/s, 3.09 m/s Pulmonic Valve Mean Gradient: 2.33 mm[Hg] Mean Velocity: 0.71 m/s Peak Velocity: 1.03 m/s, 1.24 m/s Peak Gradient: 6.20 mm[Hg], 4.24 mm[Hg] Right Atrium Right Atrium Systolic Pressure: 110.44 ml, 110.44 ml Dictated by: Balta Salazar M.D. on 10/09/2024 at 18:40 Approved by: Balta Salazar M.D. on 10/09/2024 at 18:45
== END 2024-10-09 13:50 | disposition home or self-care (01) ==
LOC: CARD 13:49
PROVIDERS: PCP Internal Medicine; Visit Provider Internal Medicine Cardiovascular Disease
DX: I50.32 Chronic diastolic (congestive) heart failure (principal)
CPT/HCPCS: 93306

== ENCOUNTER 2024-10-18 12:26 | Outpatient (OUT) | payer MEDICARE, SELFPAY ==
--- OUTSIDE RECORDS SUMMARY | 2024-10-18 12:44 | XMS_ITS | CCD ---
Author Organization [facility] Care Team Providers Care Route Sales Delivery Driver Name Role Phone ZANE MCGUIRE Admitting Unavailable DMITRIY HENNESSY Referring Unavailable LUISANA JOHNSON Primary Care Unavailable ZANE MCGUIRE Attending Unavailable DMITRIY HENNESSY Surgeon Unavailable [place] Procedure Practitioner Unavailab Hong Adler Unavailable JOHNSON [...] Admitting Unavailable RIVER ., KAYLEY Attending Unavailable TORRANCE, DR HONG Morgan Consulting Unavailable JOHNSON ., DR LUISANA Jarquin Primary Care Unavailable GRECHNY ., DANIELLE SHAIKH Consulting UnavailSALOEM Mondragon Consulting Unavailable RIVER ., KAYLEY Consulting [...] DR LUISANA Jarquin Primary Care Unavailable CIRA, SHAIKH Kymberly Attending Unavailable CIRA, SHAIKH Kymberly Admitting Unavailable SAMSA ., LUIZ Admitting Unavailable SAMSA ., LUIZ Attending Unavailable SAMSA ., LUIZ Consulting Unavailable JOHNSON ., DR LUISANA Jarquin Primary Care Unavailable THANG Clement Attending Provider MD Santos Denisikh Primary Care Provider THANG Clement Attending Provider Santos Denis MDikh Primary Care Provider Ortega ALEXANDER Attending Unavailable SHAIKH DENIS Referring Unavailable Ortega ALEXANDER Attending Unavailable MD Cira [facility] Primary Care Provider DO James Jones Attending Provider [phone] YOLY Cruz Attending Provider Luisana Johnson MD Primary Care Provider Pedro Pablo Cruz MD Unavailable LUISANA JOHNSON Primary Care Unavailable BOO BUCHANAN Attending Unavailable PEDRO PABLO CRUZ Referring Unavailable LUISANA JOHNSON Primary Care Unavailable BOO BUCHANAN Referring Unavailable Wesley Long MD Primary Care Provider Monster Calvillo NP Unavailable Shaikh Denis MD Primary Care Provider [phone] Renny Hansen MD Primary Care Provider [phone] Katherine CUBA, Miguel Sainz Attending Unavailable Giedraitis , Anddelmar Sainz Attending Unavailable Giedraitis , Andrius Sainz Attending Unavailable Katherine CUBA, Andrius Sainz Attending Unavailable Katherine CUBA, Andrius Sainz Attending Unavailable Katherine CUBA, Anddlemar Sainz Attending Unavailable Pedro Pablo Cruz PA-C Attending Provider [phone] Renny Hansen II Primary Care Provider [phone] Pedro Pablo Cruz Admitting Unavailable Pedro Pablo Cruz Attending Unavailable Tyrone, Renny Primary Care Unavailable Tyrone, Renny Primary Care Unavailable Renny Hansen Referring Unavailable Katharina Toleod Admitting Unavail able Katharina Toledo Attending Unavail able Fawalalysa, [facility] Primary Care Unavailable Claire Clement Admitting Unavailable Claire Clement Attending Unavailable Fafrancy, [facility] Primary Care Unavailable Kayley Reeder Admitting Unavailable Kayley Reeder Attending [facility]available [facility] Primary Care Unavailable James Jones Admitting Unavailable James Jones Attending Unavailable James Jones Admitting Unavailable James Jones Attending Unavailable [facility] Primary Care Unavailable Pedro Pablo Cruz Admitting Unavailable Pedro Pablo Cruz Attending Unavailable [facility] Primary Care Unavailable DMITRIY DUQUE Attending Unavailable SHAIKH DENIS Attending Unavailable SHAIKH DENIS Attending Unavailable SHAIKH DENIS Attending Unavailable SHAIKH DENIS Attending Unavailable CIRA, Attending Unavailable SHAIKH DENIS Attending Unavailable PEDRO PABLO CRUZ Attending Unavailable PEDRO PABLO CRUZ Referring Unavailable JR. CARDENAS GEORGE C Attending UnavailMONSTER Vides Attending UnavailRENNY Narayan Attending Unavailable ELEANOR LEAHY Attending Unavailable RENNY HANSEN Attending Unavailable RENNY HANSEN Attending Unavailable SALOME CID Attending Unavailable RENNY HANSEN Referring Unavailable LUISANA CARDOZO Attending Unavailable NICANOR CANNON Attending Unavailable DMITRIY HENNESSY Referring Unavailable KOLTON ALVA Attending Unavailable KOLTON ALVA Attending Unavailable DMITRIY HENNESSY Referring Unavailable Pedro Pablo Cruz PA-C Attending Provider [phone] Renny Hansen II Referring Provider Katharina Toledo APRN Attending Provider Dmitriy Duque DO Attending Provider Allergies Allergy Classification Reported Allergen(s) Allergy Type Date of Onset Reaction(s) Facility NSAIDs (1 source) meloxicam; Translations: [Mobic] Drug Allergy [facility] Repository Unclassified (1 source) No Known Medication Allergies; Translations: [No Known Medication Allergies] Propensity to adverse reactions (disorder) [facility] Repository (1 source) novacaine; Translations: [novacaine] Propensity to adverse reactions (disorder) [facility] Repository (20 sources) NSAIDs Propensity to adverse reactions 4 HEART [facility] (7 sources) Adhesive agent; Translations: [adhesive] Allergy to substance 4 Swelling [facility] (4 sources) NSAIDS (Non-Steroidal Anti-Inflamma; Translations: [NSAIDS (Non-Steroidal Anti-Inflamma] Allergy to substance 4 HEART [facility] (20 sources) Digoxin Drug Allergy 4 [facility] Work Phone: (20 sources) Wound Dressing Adhesive Drug Allergy 4 [facility] Medications Current Medications Medication Drug Class(es) Dates Sig (Normalized) Sig (Original) 8 hr acetaminophen 650 mg extended release oral tablet (15 sources) Start: 09-25-2024 take 1 tablet by mouth every twelve hours Acetaminophen (Tylenol Arthritis Pain) 650 mg tablet extended release Active 650 MG PO Every 12 hours September 25, 2024 12:00am take 2 tablets by mo ut every six hours for pain acetaminophen (Tylenol) 500 MG tablet Indications: Axillary lymphadenopathy , Left arm pain Take 1,000 mg by mouth every 6 (six) hours if needed for mild pain Active acetaminophen 325 mg / HYDROcodone bitartrate 5 mg oral tablet (20 sources) Opioid Agonist Start: 06-21-2024 take 1 tablet by mouth in the morning, then take 1 tablet by mouth in the evening, then take 1 tablet by mouth at bedtime HYDROcodone-acetaminophen ([place]) 5-325 MG tablet Take 1 tablet by mouth in the morning and 1 tablet in the evening and 1 tablet before bedtime. 06/21/2024 Active Start: 04-11-2024 End: 06-15-2024 take 1 tablet by mouth three times daily as needed for pain HYDROcodone-acetaminophen ([place]) 5-325 MG tablet Indications: Chronic left shoulder pain Take 1 tablet by mouth 3 (three) times a day as needed for severe pain 90 tablet 05/16/2024 06/15/2024 Active Start: 03-01-2024 take 1 tablet by dirk th twice daily acetaminophen-hydrocodone 325 mg-5 mg or al tablet 1 tab(s), Oral, BID, Refill(s) 0 Start Date: 03/01/24 Status: Ordered albuterol 0.833 mg/ml / ipratropium bromide 0.167 mg/ml inhalation solution (2 sources) Anticholinergic, beta2-Adrenergic Agonist Start: 05-25-2024 ipratropium-albuterol (Duo-Neb) 0.5-2.5 mg/3 mL nebulizer solution Take 3 mL by nebulization in the morning and 3 mL at noon and 3 mL in the evening and 3 mL before bedtime. 05/25/2024 Active amoxicillin 875 mg / clavulanate 125 [...] sources) Factor Xa Inhibitor Start: 05-05-2023 End: 03-13-2025 take 1 tablet by mouth in the morning apixaban (Eliquis) 5 MG tablet Indications: Persistent atrial fibrillation (HCC) (CMS/HCC) Take 1 tablet (5 mg) by mouth in the morning and 1 tablet (5 mg) before bedtime. 180 tablet 1 09/14/2024 03/13/2025 Active baclofen 10 mg oral tablet (20 [...] 2 puffs Inhalation Twice a day Active cefdinir 300 mg oral capsule (2 sources) Cephalosporin Antibacterial Start: 2024 End: 2024 take 1 capsule by mouth in the morning cefdinir (Omnicef) 300 MG capsule Indications: Acute non-recurrent sinusitis, unspecified location Take 1 capsule (300 mg) by mouth in the morning and 1 capsule (300 mg) before bedtime. Do all this for 7 days. 14 capsule 10/17/2024 10/24/2024 Active Centrum Silver (2 sources) Centrum Silver [...] Active Start: 11-16-2023 Cholecalcifero l (Vitamin D3) 125 mcg (5,000 unit) tablet Active 5000 UNIT PO November 16, 2023 12:00am take 1 tablet by dirk th once daily in the morning Cholecalciferol, Vitamin D3, 125 mcg (5,000 unit) cap Take 1 tablet by mouth every morning. Active ferrous sulfate 325 mg oral tablet (20 sources) Start: 09-25-2024 take 1 tablet by mouth once daily Ferrous Sulfate 325 mg (65 mg iron) tablet Active 325 MG PO Daily September 25, 2024 12:00am Start: 03-21-2024 End: 06-19-2024 take 1 tablet by mouth at mealtime ferrous sulfate 325 (65 Fe) MG EC tablet Indications: Iron deficiency anemia due to chronic blood loss Take 1 tablet (325 mg) by mouth in the morning. Take with meals. Do not crush, chew, or split.. 90 tablet 03/21/2024 06/19/2024 Active End: 10-04-2024 take 1 tablet by mouth every other day ferrous sulfate 325 (65 Fe) MG tablet Take 325 mg by mouth every other day 10/04/2024 Discontinued flecainide acetate 100 mg oral tablet (20 sources) Antiarrhythmic Start: 03-08-2024 take 1 tablet by mouth every twelve hours flecainide (Tambocor) 100 MG tablet Take 100 mg by mouth every 12 (twelve) hours 03/08/2024 Active Start: 01-11-2023 Flecainide 100 mg tablet Active 100 MG PO November 16, 2023 12:00am take 1 tablet by dirk th once [...] replace cap. 16 g 07/24/2024 08/02/2024 Discontinued gabapentin 300 mg oral capsule (7 sources) [...] 1 tablet Orally Once a day Active hydrocortisone valerate 2 mg/ml topical cream (2 sources) Corticosteroid Start: 10-17-2024 hydrocortisone (West-Andres) 0.2 % cream Indications: Phlebitis of left upper extremity Apply topically 2 (two) times a day 45 g 1 10/17/2024 Active Start: 10-17-2024 hydrocortisone (West-Andres) 0.2 % cream Indications: Phlebitis of left upper extremity Apply topically 2 (two) times a day 45 g 1 10/17/2024 Active Multiple Vitamins-Minerals (CENTRUM SILVER 50+WOMEN PO) (20 sources) take 1 tablet by mouth in the morning Multiple Vitamins-Minerals (CENTRUM SILVER 50+WOMEN PO) Take 1 tablet by mouth in the morning. Active take 1 tablet by mouth in the mo rning Multiple Vitamins-Minerals (CENTRUM SILVER 50+WOMEN PO) Take 1 tablet by mouth in the morning. 0 Active Multivitamin tablet (2 sources) Start: 09-25-2024 take 1 tablet by mouth once daily Multivitamin tablet Active 1 TAB PO Daily September 25, 2024 12:00am nitrofurantoin, macrocrystals 25 mg / nitrofurantoin, monohydrate 75 mg oral capsule (2 sources) Nitrofuran Antibacterial Start: 09-19-2024 End: 09-26-2024 take 1 capsule by mouth in the morning nitrofurantoin, macrocrystal-monoh ydrate, (Macrobid) 100 MG capsule Indications: Acute cystitis with hematuria Take 1 capsule (100 mg) by mouth in the morning and 1 capsule (100 mg) before bedtime. Do all this for 7 days. 14 capsule 09/19/2024 09/26/2024 Active omeprazole 40 mg delayed release oral capsule (20 sources) Proton Pump Inhibitor Start: 02-15-2023 take 1 capsule by mouth once daily omeprazole (PriLOSEC) [address] capsule Indications: Peptic ulcer, site unspecified, unspecified as acute or chronic, without hemorrhage or perforation , Peptic ulcer Take 1 capsule (40 mg) by mouth Daily 90 capsule 1 07/09/2024 Active take 1 capsule by [facility] every twenty-four hours Omeprazole 40 MG 1 capsule Orally Once a day Active potassium chloride 10 meq extended release oral capsule (2 sources) take 1 capsule by mouth every twenty-four hours Potassium Chloride 10 MEQ 1 capsule with food Orally Once a day Active spironolactone 50 mg oral tablet (20 sources) Aldosterone Antagonist Start: take 1 tablet by mouth in the morning spironolactone (Aldactone) 50 MG tablet Take 50 mg by mouth in the morning. 09/24/2024 Active Start: 11-16-2023 End: 10-17-2024 take 1 tablet by mouth once daily spironolactone (Aldactone) 25 MG tablet Indications: Essential hypertension (CMS/HCC) TAKE 1 TABLET BY MOUTH EVERY DAY 90 tablet 1 07/16/2024 10/17/2024 Discontinued 24 hr verapamil hydrochloride 180 mg extended release oral capsule (20 sources) Calcium Channel Ozzy Start: 03-01-2024 take 1 capsule by mouth once daily verapamil 180 mg Cap-ER 180 mg = 1 cap(s), Oral, Daily, Refills(s) 0 Start Date: 03/01/24 Status: Ordered Start: 11-16-2023 take 1 capsule by mo [facility] every twenty-four hours Verapamil 180 mg capsule,ext rel. pellets 24 hr Active MG PO November 16, 2023 12:00am Start: 02-14-2023 End: 02-14-2024 take 1 capsule by mouth every twenty-four hours in the morning verapamil ER (Verelan) 180 MG 24 hr capsule Take 360 mg by mouth in the morning. 02/14/2023 Active take 1 capsule by mo [facility] every twenty-four hours Verapamil HCl ER 360 [...] Daily, # 90 tab(s), Refills(s) 0, Pharmacy: [facility]/pharmacy #[id number], 141, cm, 01/11/23 10:30:00 EDT, Height/Length Dosing, 107.2, kg, 01/11/23 10:30:00 EDT, Weight Dosing Start Date: 02/15/23 Status: Ordered warfarin sodium 3 mg oral tablet (2 sources) Vitamin K Antagonist take 1 tablet by mouth every twenty-four hours Warfarin Sodium 3 MG 1 tablet Orally Once a day Active Completed/Discontinued Medications Medication Drug Class(es) Dates Sig (Normalized) Sig (Original) ascorbic acid 100 mg oral tablet (20 sources) Vitamin C End: 10-04-2024 take 1 tablet by mouth in the morning Ascorbic Acid (vitamin C) 100 MG tablet Take 100 mg by mouth in the morning. 10/04/2024 Discontinued furosemide 40 mg oral tablet (20 sources) Loop Diuretic Start: 03-21-2024 End: 10-04-2024 take 1 tablet by mouth once daily furosemide (Lasix) 40 MG tablet Indications: Acute on chronic diastolic (congestive) heart failure (CMS/HCC) TAKE 1 TABLET BY MOUTH EVERY DAY 90 tablet 06/18/2024 10/04/2024 Discontinued (Therapy completed) Start: 03-01-2024 take 1 tablet by dirk th once daily Lasix 40 mg Tab 40 mg = 1 tab(s), Oral, Daily, Refills(s) 0 Start Date: 03/01/24 Status: Ordered take 1 tablet by dirk th every twenty-four hours Furosemide 20 MG 1 tablet Orally Once a day Active Lidocaine (10 sources) Antiarrhythmic, Amide Local Anesthetic Start: 11-18-2023 End: 09-25-2024 Lidocaine 5 % ointment Discontinued 1 APPLIC TOPICAL Daily November 18, 2023 12:00am September 25, 2024 11:16am Start: 11-18-2023 Lidocaine Acti ve 1 APPLIC TOPICAL Daily November 18, 2023 1:00am Start: 11-16-2023 End: 11-18-2023 apply 1 dose topically once daily Lidocaine 5 % adhesive patch,medicated Discontinued 1 PATCH TOPICAL Daily November 16, 2023 12:00am November 18, 2023 9:08am leave on most painful area for up to 12 hrs ondansetron 4 mg disintegrating oral tablet (4 [...] Classification Problem Date Documented Da te Episodic/Chronic Administrative/social admission (2 sources) Patient encounter status; Translations: [Other specified counseling] 10-17-2024 Episodic Cardiac dysrhythmias (20 sources) Unspecified atrial fibrillation; [...] disease (20 sources) Atherosclerotic heart disease of [place] coronary artery without angina pectoris; Translations: [Coronary atherosclerosis] Onset: 2 09-06-2023 Chronic Deficiency and other anemia (20 sources) Iron deficiency anemia due to blood loss; Translations: [Iron deficiency anemia secondary to blood loss (chronic)] Onset: 4 03-12-2024 Chronic Deficiency and other anemia (3 sources) Iron deficiency anemia secondary to blood loss (chronic); Translations: [Iron deficiency anemia secondary to blood loss (chronic)] Onset: 5 Chronic Deficiency and other anemia (4 sources) Iron deficiency anemia; Translations: [Iron deficiency anemia, unspecified] Onset: 4 Episodic Deficiency and other anemia (4 sources) Iron deficiency anemia, unspecified; Translations: [Iron deficiency anemia, unspecified] Onset: 5 08-24-2024 Episodic Disorders of lipid metabolism (3 sources) Hyperlipidemia, unspecified; Translations: [HYPERLIPIDEMIA UNSPECIFIED] Onset: 3 Chronic Diverticulosis and diverticulitis (20 sources) Diverticulosis of sigmoid colon; Translations: [Diverticulosis of large intestine without perforation or abscess without bleeding] Onset: 4 07-05-2024 Chronic Esophageal disorders (20 sources) Gastroesophageal reflux disease without esophagitis; Translations: [Gastro-esophageal reflux disease without esophagitis] Onset: 4 Chronic Essential hypertension (20 sources) Essential hypertension; Translations: [Essential (primary) hypertension] Onset: 2 09-06-2023 Chronic Gastroduodenal ulcer (except hemorrhage) (20 sources) Peptic ulcer; Translations: [Peptic ulcer, site unspecified, unspecified as acute or chronic, without hemorrhage or perforation] Onset: 3 09-06-2023 Chronic Genitourinary symptoms and ill-defined conditions (2 sources) Scalding pain on urination ; Translations: [Dysuria] 09-19-2024 Episodic Headache; including migraine (1 source) Migraine 01-11-2023 Chronic Headache; including migraine (3 sources) Headache; including migraine; Translations: [HEADACHE UNSPECIFIED] Onset: 3 Hepatitis (6 sources) Nonalcoholic steatohepatitis; Translations: [Nonalcoholic steatohepatitis (LOJA)] Onset: 1 Resolved: 2 Chronic Hypertension with complications and secondary hypertension (1 source) Hypertensive heart disease with heart failure; Translations: [HTN HEART DISEASE W/HEART FAIL] Onset: 3 Chronic Immunizations and screening for infectious disease (2 sources) Vaccination needed; Translations: [Encounter for immunization] 09-19-2024 Episodic Lymphadenitis (20 sources) Axillary lymphadenopathy; Translations: [Localized enlarged lymph nodes] Onset: 4 07-05-2024 Episodic Mood disorders (1 source) Depressive disorder 01-11-2023 Chronic Comment on above: Per pt she had a armando ght of depresseion after her but she denies any chronic depression. Nausea and vomiting (6 sources) Nausea; Translations: [Nausea] 07-24-2024 Episodic Nonmalignant breast conditions (2 sources) Acute mastitis; Translations: [Mastitis without abscess] 10-17-2024 Episodic Nonspecific chest pain (1 source) Chest [...] source) FPC (current) use of anticoagulants; Translations: [GROUP HOME CURRNT USE 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] Onset: 3 Episodic Other aftercare (1 source) Other terminologist (current) drug therapy; Translations: [OTH CHIEF CONSOLE OPERATOR CURRENT DRUG THERAPY] Onset: 3 Episodic Other [...] [Neuralgia and neuritis, unspecified] 07-05-2024 Episodic Other connective tissue disease (4 sources) Pain in left arm; Translations: [Pain in left arm] 09-18-2024 Episodic Other gastrointestinal disorders (20 sources) Irritable bowel syndrome; Translations: [Irritable bowel syndrome without diarrhea] Onset: 4 07-05-2024 Chronic Other gastrointestinal disorders (1 source) Abnormal feces; Translations: [Other fecal abnormalities] Onset: 4 Episodic Other gastrointestinal disorders (1 source) Occult blood in stools 03-01-2024 Episodic Other hematologic conditions (1 source) Other specified abnormalities of plasma proteins; Translations: [OTH SPEC ABNORM PLASMA PROTEINS] Onset: 3 Episodic Other injuries and conditions due to external causes (4 sources) Injury of shoulder and upper arm; Translations: [Unspecified injury of left shoulder and upper arm, sequela] 10-17-2024 Episodic Other liver diseases (2 sources) Cirrhosis [...] chronic pain] Chronic Other non-traumatic joint disorders (8 sources) Pain in left shoulder; Translations: [Pain [...] nutritional; endocrine; and metabolic disorders (3 sources) Body mass index 40+ - severely obese; Translations: [Body mass index (BMI) 40.0-44.9, adult] 03-02-2024 Chronic Other nutritional; endocrine; and metabolic disorders (1 source) Obese class III 03-02-2024 Chronic Other nutritional; endocrine; and metabolic disorders (2 sources) Obesity caused by energy imbalance; Translations: [Morbid (severe) obesity due to excess calories] 09-19-2024 Chronic Other screening for suspected conditions (not mental disorders or infectious disease) (20 sources) Ultrasound scan abnormal; Translations: [Abnormal findings on diagnostic imaging of other specified body structures] Onset: 4 07-05-2024 Chronic Other screening for suspected conditions (not mental disorders or infectious disease) (12 sources) Abnormal coagulation profile; Translations: [Encounter for screening mammogram for malignant neoplasm of breast] Onset: 2 Episodic Other skin disorders (1 source) Localized swelling, mass and lump, left upper limb; Translations: [Localized swelling, mass and lump, left upper limb] Onset: 5 Episodic Other upper respiratory infections (9 sources) Acute sinusitis, unspecified; Translations: [Acute sinusitis] Onset: 3 07-05-2024 Episodic Phlebitis; thrombophlebitis and thromboembolism (2 sources) Phlebitis; Translations: [Phlebitis and thrombophlebitis of other sites] 10-17-2024 Episodic Pulmonary heart disease (20 sources) Pulmonary hypertension; Translations: [Pulmonary hypertension, unspecified] Onset: 4 07-24-2024 Chronic Residual codes; unclassified (7 sources) Obstructive sleep apnea (adult) (pediatric); Translations: [OBSTRUCTIVE SLEEP APNEA] Onset: 2 Chronic Residual codes; unclassified (20 sources) Obstructive sleep apnea syndrome; Translations: [Obstructive sleep apnea (adult) (pediatric)] Onset: 4 07-24-2024 Chronic Residual codes; unclassified (2 sources) H/O: Disorder; Translations: [Personal history of other specified conditions] Onset: 4 Episodic Residual codes; unclassified (1 source) Pain, unspecified; Translations: [Pain, unspecified] Onset: 5 Episodic Screening and history of mental health [...] Unclassified (2 sources) PACEMAKER Onset: 4 Unclassified (2 sources) Left shoulder pain, unspecified chronicity 10-17-2024 Urinary tract infections (2 sources) Acute cystitis; Translations: [Acute cystitis with hematuria] 09-19-2024 Episodic Viral infection (1 source) Herpes zoster 01-10-2023 Episodic Comment on above: 05/2019 Past or Other Problems Problem Classification Problem Date Documented Da te Episodic/Chronic Abdominal hernia (20 sources) Diaphragmatic hernia; Translations: [Diaphragmatic hernia without obstruction or gangrene] Onset: 10-17-2023 Episodic Deficiency and other anemia (20 sources) 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; Translations: [Other specified anemias] Onset: 07-05-2024 07-05-2024 Episodic Fracture of lower limb (20 sources) [...] Test Name Value Interpretation Reference Range Facility [facility] 10-11-2024 36 Regarding labs (from 10/03/24) and echo (from 10/09/2024): MD Tina Chandra MA Inform patient that her cardiac contractility is normal but there are evidence of increased pressure inside the heart both on the left and on the right therefore I recommend to go back and take Lasix 40 mg daily and check BMP in 1 week. BMP and lipids are normal. Spoke with patient and informed her to take lasix 40mg daily instead of PRN. She will have repeat BMP in 1 week. 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 She verbalized understanding. Normal [facility] CA ECHO DOPPLER COMPLETEon 0 10-09-2024 [place] [address] Cardiology Report Signed Patient: BREANN STARKS MR#: [id number] : 1945 Acct:[id number] Age/Sex: 78 / F ADM Date: 10/09/24 Loc: CARD Attending Dr: Kolton Alva M.D. Ordering Physician: Kolton Alva M.D. Date of Service: 10/09/24 Procedure(s): CA echo doppler complete Accession Number(s): [id number] cc: RENNY HANSEN ; Kolton Alva M.D. Patient Name: BREANN STARKS MR#: [id number] : 1945 Exam Date: 10/09/2024 Ordering Doctor: DR. KOLTON ALVA M.D. ECHOCARDIOGRAM REPORT PROCEDURE: CA ECHO DOPPLER COMPLETE INDICATIONS: Diastolic heart failure COMPARISON: None. DESCRIPTION: COMPLETE ECHOCARDIOGRAM Real-time transthoracic echocardiography with 2D, M-mode, spectral and color flow Doppler performed. QUALITY: Technical quality was good. LEFT VENTRICLE: Normal chamber size. Normal left ventricular wall thickness. Global left ventricular systolic function is normal. LV EF: Estimated left ventricular ejection fraction is 60%. DIASTOLIC: Grade III diastolic dysfunction. ATRIAL SEPTUM: LEFT ATRIUM: Moderate dilatation mild. RIGHT ATRIUM: Mild dilatation. RIGHT VENTRICLE: Normal chamber size. Normal right ventricular systolic function. Pacer wire present. TRICUSPID VALVE: Normal mobility and thickness. No stenosis with mild regurgitation. Moderate pulmonary hypertension. RVSP 58 mmHg MITRAL VALVE: Normal mobility and thickness. No evidence of mitral valve stenosis. There is no mitral annular calcification. Mild mitral regurgitation. AORTIC VALVE: Normal trileaflet appearance. Mildly diminished mobility. Doppler velocity suggest no aortic valve stenosis. Trivial aortic regurgitation. AORTIC ROOT: Normal diameter and appearance. PULMONIC VALVE: Normal thickness and mobility. No stenosis. Trivial regurgitation. PERICARDIUM: No evidence of pericardial effusion. IVC: Collapses with inspirations. Mild dilatation measuring 2.2 cm. PLEURA: CONCLUSION: 1. Normal left ventricular size and systolic function. Estimated LVEF is 60%. 2. Normal right ventricular size and systolic function. 3. Grade 3 diastolic dysfunction. 4. Mild mitral and tricuspid regurgitation. 5. Moderately elevated right-sided pressures. RVSP is 58 mmHg. 6. Doppler studies suggest elevated left-sided filling pressures. Adult Echocardiography Procedure Report Left Ventricle LVEDD (3.7 - 5.6 cm): 5.27 cm LVESD (2.2 - 4.0 cm): 3.33 cm LVIVS thickness (0.6 - 1.2 cm): 0.76 cm LVPW thickness (0.5 - 1.0 cm): 0.70 cm e': 0.09 m/s E - e': 15.61 LVOT Max Gradient: 0.00 mm[Hg], 3.92 mm[Hg] LVOT Area (cm2): 0.99 m/s, 0.01 m/s Peak Velocity (LVOT): 0.99 m/s, 0.01 m/s Mean Velocity (LVOT): 0.64 m/s LVOT Diameter 1.85 cm Left Ventricular Ejection Fraction: 60 % Left Atrium LA Volume Index (2D A2C): 32.07 ml/m2 Left Atrium Systolic Dimension: 4.81 cm Mitral Valve MV E to A Ratio: 2.84 Mitral Valve A-Wave Peak Velocity: 0.49 m/s Mitral Valve E-Wave Peak Velocity: 1.40 m/s Right Ventricle RV Internal Diastolic Dimension: 4.58 cm Aorta AO Root Diam: 2.90 cm Aortic Valve AoV Area (Peak Jovani): 1.39 cm2, 1.39 cm2, 0.01 cm2, 0.01 cm2 AoV Area (VTI): 1.49 cm2, 1.49 cm2 Deceleration [place]: 1.68 m/s2 Pressure Half-Time: 622.32 ms Peak Velocity(Antegrade Flow): 1.92 m/s Peak Gradient(Antegrade Flow): 14.75 mm[Hg] Mean Velocity(Antegrade Flow): 1.25 m/s Mean Gradient(Antegrade Flow): 7.14 mm[Hg] Velocity Time Integral: 41.21 cm Tricuspid Valve Peak Velocity (Regurgitant Flow): 2.86 m/s, 3.52 m/s, 3.09 m/s Pulmonic Valve Mean Gradient: 2.33 mm[Hg] Mean Velocity: 0.71 m/s Peak Velocity: 1.03 m/s, 1.24 m/s Peak Gradient: 6.20 mm[Hg], 4.24 mm[Hg] Right Atrium Right Atrium Systolic Pressure: 110.44 ml, 110.44 ml Dictated by: Sakina Evans (more content not included)... [facility] Radiology, Radiologist, - 10/09/2024 [place] [address] Cardiology Report Signed Patient: BREANN STARKS MR#: [id number] : 1945 Acct:[id number] Age/Sex: 78 / F ADM Date: 10/09/24 Loc: CARD Attending Dr: Kolton Alva M.D. Ordering Physician: Kolton Alva M.D. Date of Service: 10/09/24 Procedure(s): CA echo doppler complete Accession Number(s): [id number] cc: RENNY HANSEN ; Kolton Alva M.D. Patient Name: BREANN STARKS MR#: [id number] : 1945 Exam Date: 10/09/2024 Ordering Doctor: DR. KOLTON ALVA M.D. ECHOCARDIOGRAM REPORT PROCEDURE: CA ECHO DOPPLER COMPLETE INDICATIONS: Diastolic heart failure COMPARISON: None. DESCRIPTION: COMPLETE ECHOCARDIOGRAM Real-time transthoracic echocardiography with 2D, M-mode, spectral and color flow Doppler performed. QUALITY: Technical quality was good. LEFT VENTRICLE: Normal chamber size. Normal left ventricular wall thickness. Global left ventricular systolic function is normal. LV EF: Estimated left ventricular ejection fraction is 60%. DIASTOLIC: Grade III diastolic dysfunction. ATRIAL SEPTUM: LEFT ATRIUM: Moderate dilatation mild. RIGHT ATRIUM: Mild dilatation. RIGHT VENTRICLE: Normal chamber size. Normal right ventricular systolic function. Pacer wire present. TRICUSPID VALVE: Normal mobility and thickness. No stenosis with mild regurgitation. Moderate pulmonary hypertension. RVSP 58 mmHg MITRAL VALVE: Normal mobility and thickness. No evidence of mitral valve stenosis. There is no mitral annular calcification. Mild mitral regurgitation. AORTIC VALVE: Normal trileaflet appearance. Mildly diminished mobility. Doppler velocity suggest no aortic valve stenosis. Trivial aortic regurgitation. AORTIC ROOT: Normal diameter and appearance. PULMONIC VALVE: Normal thickness and mobility. No stenosis. Trivial regurgitation. PERICARDIUM: No evidence of pericardial effusion. IVC: Collapses with inspirations. Mild dilatation measuring 2.2 cm. PLEURA: CONCLUSION: 1. Normal left ventricular size and systolic function. Estimated LVEF is 60%. 2. Normal right ventricular size and systolic function. 3. Grade 3 diastolic dysfunction. 4. Mild mitral and tricuspid regurgitation. 5. Moderately elevated right-sided pressures. RVSP is 58 mmHg. 6. Doppler studies suggest elevated left-sided filling pressures. Adult Echocardiography Procedure Report Left Ventricle LVEDD (3.7 - 5.6 cm): 5.27 cm LVESD (2.2 - 4.0 cm): 3.33 cm LVIVS thickness (0.6 - 1.2 cm): 0.76 cm LVPW thickness (0.5 - 1.0 cm): 0.70 cm e': 0.09 m/s E - e': 15.61 LVOT Max Gradient: 0.00 mm[Hg], 3.92 mm[Hg] LVOT Area (cm2): 0.99 m/s, 0.01 m/s Peak Velocity (LVOT): 0.99 m/s, 0.01 m/s Mean Velocity (LVOT): 0.64 m/s LVOT Diameter 1.85 cm Left Ventricular Ejection Fraction: 60 % Left Atrium LA Volume Index (2D A2C): 32.07 ml/m2 Left Atrium Systolic Dimension: 4.81 cm Mitral Valve MV E to A Ratio: 2.84 Mitral Valve A-Wave Peak Velocity: 0.49 m/s Mitral Valve E-Wave Peak Velocity: 1.40 m/s Right Ventricle RV Internal Diastolic Dimension: 4.58 cm Aorta AO Root Diam: 2.90 cm Aortic Valve AoV Area (Peak Jovani): 1.39 cm2, 1.39 cm2, 0.01 cm2, 0.01 cm2 AoV Area (VTI): 1.49 cm2, 1.49 cm2 Deceleration [place]: 1.68 m/s2 Pressure Half-Time: 622.32 ms Peak Velocity(Antegrade Flow): 1.92 m/s Peak Gradient(Antegrade Flow): 14.75 mm[Hg] Mean Velocity(Antegrade Flow): 1.25 m/s Mean Gradient(Antegrade Flow): 7.14 mm[Hg] Velocity Time Integral: 41.21 cm Tricuspid Valve Peak Velocity (Regurgitant Flow): 2.86 m/s, 3.52 m/s, 3.09 m/s Pulmonic Valve Mean Gradient: 2.33 mm[Hg] Mean Velocity: 0.71 m/s Peak Velocity: 1.03 m/s, 1.24 m/s Peak Gradient: 6.20 mm[Hg], 4.24 mm[Hg] Right Atrium Right Atrium Systolic Pressure: 110.44 ml, 110.44 ml Dictated by: Sakina Salazar M.D. on 10/09/2024 at 18:40 Approved by: Sakina Salazar M.D. on 10/09/2024 at 18:45 Dictated By: SAKINA SALAZAR Signed By: 10/09/241846 DD/ 44 TD/TT: Senior Private Client Advisor: [facility] Radiology Study observation (narrative) [facility] CA ECHO DOPPLER COMPLETEOrde red By: Radiologist Radiology on 10-09-2024 [facility] Work Phone: ALL BASIC METABOLIC PANELon 10-03-2024 Anion gap [Moles/Vol] 12.4 mmol/L [facility] Calcium [Mass/Vol] 9.2 mg/dL 8.5 - 10. 1 mg/dL [facility] Chloride [Moles/Vol] 104 mmol/L 98 - 10 7 mmol/L [facility] CO2 [Moles/Vol] 27.8 mmol/L 21.0 - 32.0 mmol/L [facility] Creatinine [Mass/Vol] 0.73 mg/dL 0.55 - 1.02 mg/dL [facility] GFR/1.73 sq M.predicted CKD-EPI (S/P/Bld) [Vol rate/Area] >60 >=60 mL/min/1.73m 2 [facility] Glucose [Mass/Vol] 97 mg/dL 74 - 106 mg/dL [facility] Potassium [Moles/Vol] 4.2 mmol/L 3.5 - 5.1 mmol/L [facility] Sodium [Moles/Vol] 140 mmol/L 136 - 145 mmol/L [facility] TBH EGFR-NON AF NAURUAN >60 >=60 mL/min/1.73m 2 [facility] Urea nitrogen [Mass/Vol] 16 mg/dL 7.0 - 18.0 mg/dL [facility] Urea nitrogen/Creatinine [Mass ratio] 21.9 mg/mg [facility] ALL LIPID PROFILE (FASTING)o n 10-03-2024 CHOL HDL RATIO 2.2 [facility] Comment on above: 3.3 - 4.4 LOW RISK 4.4 - 7.1 AVERAGE RISK 7.1 - 11.0 MODERATE RISK >11.0 HIGH RISK Cholesterol [Mass/Vol] 130 mg/dL NINF - 200 mg/dL [facility] Cholesterol in HDL [Mass/Vol] 59 mg/dL 40 - 60 mg/dL [facility] Comment on above: > or =60 mg/dl - LOW CARDIOVASCULAR RISK <40 mg/dl - HIGH CARDIOVASCULAR RISK Magnesium [Mass/Vol] 56.8 mg/dL [facility] Comment on above: <100 mg/dl OPTIMAL 100-129 mg/dl NEAR OR ABOVE OPTIMAL 130-159 mg/dl BORDERLINE HIGH 160-189 mg/dl HIGH >190 mg/dl VERY HIGH Magnesium [Mass/Vol] 14.2 mg/dL [facility] Triglyceride [Mass/Vol] 71 mg/dL [facility] mg/dL [facility] No Panel Informationon 10-03 [facility] Anisocytosis LM Ql (Bld)Orde red By: Katharina Toledo on 10-02-2024 Anisocytosis Ql (Bld) Anisocytosis [Presence] in Blood by Light microscopy [facility] Basophils Auto (Bld) [#/Vol] Ordered By: Katharina oTledo on 10-02-2024 Basophils (Bld) [#/Vol] Automated basophil count 0.0-0.2 [facility] Basophils/100 WBC Auto (Bld) Ordered By: Katharina Toledo on 10-02-2024 Basophils/100 WBC (Bld) Automated basophil % . [facility] CT shoulder LT w conon 10-02 CT shoulder LT w con [facility] [place] [address] CT Scan Report Signed Patient: Breann Starks MR#: [id number] : 1945 Acct:[id number] Age/Sex: 78 / F ADM Date: 10/02/24 Loc: Room: Type: [facility] Attending Dr: Katharina Toledo CAREER DEVELOPMENT DIRECTOR Copies to: Katharina Toledo APRN Ordering Provider: Katharina Toledo APRN Date of Service: 10/02/24 CT/CT shoulder LT w con: reeval left axilla lymph node CT left shoulder TECHNIQUE: 90 cc of [id number] CT exam was performed using one or more the following dose reduction techniques: Automated exposure control, adjustment of the MA and/or Kv according to patient size, or use of the iterative reconstruction technique. COMPARISON: 06/26/2024 HISTORY: Left shoulder pain. Decreased range of motion. Follow-up Lymphadenopathy Redemonstration of left axillary lymphadenopathy. Largest measures up to 13 mm in short axis dimension. This is unchanged from prior examination. Additional smaller lymph nodes identified. No new lymphadenopathy. Similar small left supraclavicular lymph nodes. Right shoulder arthroplasty artifact. Similar acromioclavicular degenerative change. CT/CT shoulder LT w con IMPRESSION: Similar left axillary lymphadenopathy with largest measuring up to 13 mm in short axis dimension. No enlarging or new lymphadenopathy. Impression dictated by: Etienne Rhodes M.D.10/02/2024 4:14 PM Dictation Location: [place] [address] Transcribed By: [facility] 10/02/24 1614 Dictated By: Etienne Rhodes DO 10/02/24 1610 Signed By: 10/02/24 1614 Normal [facility] Creatinine (Bld) [Mass/Vol]O rdered By: Katharina Toledo on 10-02-2024 Creatinine [Mass/Vol] Whole blood creatinine measurement 0.6-1.3 [facility] Comment on above: ER/ESD physician is notified/shown all ISTAT results.Critical values may be confirmed by laboratory testing ifdeemed necessary by ER attending doctor. Eosinophils Auto (Bld) [#/Vo l]Ordered By: Katharina Toledo on 10-02-2024 Eosinophils (Bld) [#/Vol] Automated eosinophil count 0.0-0.45 [facility] Eosinophils/100 WBC Auto (Bl d)Ordered By: Katharina Toledo on 10-02-2024 Eosinophils/100 WBC (Bld) Automated eosinophil % . [facility] Erythrocyte distribution wid th Auto (RBC) [Ratio]Ordered By: Katharina Toledo on 10-02-2024 Erythrocyte distribution width (RBC) [Ratio] Erythrocyte distribution width [Ratio] by Automated count High 11.9-15.3 [facility] Erythrocyte morphology findi ng [Identifier] in BloodOrdered By: Katharina Tre on 10-02-2024 RBC morphology finding Nom (Bld) RBC morphology [facility] Ferritinon 10-02-2024 Ferritin [Mass/Vol] 54.8 ng/mL Normal 11.0-306.8 [facility] Comment on above: Result Comment: PERF ORMED BY: [facility] [address] [place] [address] PATHOLOGIST [employer] OFFBEARER KATHLEEN RAMOS M.D. Performed By: #### F E and TIBC, ARISTIDES, SCAN CBC ####[facility] [id number] [place] [address] [facility] Ferritin [Mass/volume] in Se rum or PlasmaOrdered By: Katharina Toledo on 10-02-2024 Ferritin [Mass/Vol] Ferritin [Mass/volume] in Serum or Plasma 11.0-306.8 [facility] Hematocrit Auto (Bld) [Volum e fraction]Ordered By: Katharina Toledo on 10-02-2024 Hematocrit (Bld) [Volume fraction] Hematocrit [Volume Fraction] of Blood by Automated count Low 34.0-46.4 [facility] Hemoglobin [Mass/volume] in BloodOrdered By: Katharina Toledo on 10-02-2024 Hemoglobin (Bld) [Mass/Vol] Hemoglobin [Mass/volume] in Blood Low 11.8-15.4 [facility] Hypochromia LM Ql (Bld)Order ed By: Katharina Toledo on 10-02-2024 Hypochromia Ql (Bld) Hypochromia [Presence] in Blood by Light microscopy [facility] ISTAT XRAY CREon 10-02-2024 Creatinine [Mass/Vol] 0.7 mg/dL 0.6 - 1.3 mg/dL [facility] Comment on above: ER/ESD physician is notified/shown all ISTAT results. Critical values may be confirmed by laboratory testing if deemed necessary by ER attending doctor. ISTAT GFR [facility] ISTAT XRay CREon 10-02-2024 Creatinine [Mass/Vol] 0.7 mg/dL Normal 0.6-1.3 [facility] Comment on above: Result Comment: ER/E SD physician is notified/shown all ISTAT results. Critical values may be confirmed by laboratory testing if deemed necessary by ER attending doctor. Performed By: #### I SCRE #### [address] ISTAT GFR >60.0 Normal [facility] Comment on above: Result Comment: PERF ORMED BY: [place] [address] PATHOLOGIST [employer] OFFBEARER KATHLEEN RAMOS M.D. Performed By: #### I SCRE #### [address] Iron [Mass/volume] in Serum or PlasmaOrdered By: Katharina Toledo on 10-02-2024 Iron [Mass/Vol] Iron [Mass/volume] i n Serum or Plasma Low 50-212 [facility] Iron and TIBC Profileon 09-13 % Iron Saturation 8.7 % Low 20-50 [facility] Comment on above: Performed By: #### F E and TIBC, ARISTIDES, SCAN CBC ####[facility] [place] [address] Iron [Mass/Vol] 36 ug/dL Low 50-212 [facility] Comment on above: Performed By: #### F E and TIBC, ARISTIDES, SCAN CBC ####[facility] Total Iron Binding Capacity 413 ug/dL Normal 255-450 [facility] Comment on above: Performed By: #### F E and TIBC, ARISTIDES, SCAN CBC ####[facility] [id number] [place] [id number] [facility] Transferrin [Mass/Vol] 295 mg/dL Normal 203-362 [facility] Comment on above: Performed By: #### F E and TIBC, ARISTIDES, SCAN CBC ####[facility] [id number] [place] [address] [facility] Leukocytes [#/volume] correc aristeo for nucleated erythrocytes in Blood by Automated counOrdered By: Katharina Toledo on 10-02-2024 WBC corrected for nucl RBC Auto (Bld) [#/Vol] Leukocytes [#/volume] corrected for nucleated erythrocytes in Blood by Automated coun 3.8-11.6 [facility] Lymphocytes Auto (Bld) [#/Vo l]Ordered By: Katharina Toledo on 10-02-2024 Lymphocytes (Bld) [#/Vol] Lymphocytes [#/volume] in Blood by Automated count 1.00-4.8 [facility] Lymphocytes/100 WBC Auto (Bl d)Ordered By: Katharina Toledo on 10-02-2024 Lymphocytes/100 WBC (Bld) Lymphocytes/100 leukocytes in Blood by Automated count . [facility] MCH Auto (RBC) [Entitic mass ]Ordered By: Katharina Toledo on 10-02-2024 MCH (RBC) [Entitic mass] MCH [Entitic mass] by Automated count 24.7-34.3 [facility] MCHC Auto (RBC) [Mass/Vol]Or dered By: Katharina Toledo on 10-02-2024 MCHC (RBC) [Mass/Vol] MCHC [Mass/volume] by Automated count 32.0-35.0 [facility] MCV Auto (RBC) [Entitic vol] Ordered By: Katharina Toledo on 10-02-2024 MCV (RBC) [Entitic vol] MCV [Entitic volume] by Automated count 80-100 [facility] Microcytes LM Ql (Bld)Ordere d By: Katharina Toledo on 10-02-2024 Microcytes Ql (Bld) Microcytes [Presence ] in Blood by Light microscopy [facility] Monocytes Auto (Bld) [#/Vol] Ordered By: Katharina Toledo on 10-02-2024 Monocytes (Bld) [#/Vol] Automated blood monocyte count 0.0-0.8 [facility] Monocytes/100 WBC Auto (Bld) Ordered By: Katharina Toledo on 10-02-2024 Monocytes/100 WBC (Bld) Automated monocyte % . [facility] Neutrophils Auto (Bld) [#/Vo l]Ordered By: Katharina Toledo on 10-02-2024 Neutrophils (Bld) [#/Vol] Neutrophils [#/volume] in Blood by Automated count 1.8-7.7 [facility] Neutrophils/100 WBC Auto (Bl d)Ordered By: Katharina Toledo on 10-02-2024 Neutrophils/100 WBC (Bld) Automated neutrophil % . [facility] No Panel InformationOrdered By: Katharina Toledo on 10-02-2024 Bedside Estimated GFR (eGFR) > 60.0 [facility] Nucleated erythrocytes [Pres ence] in Blood by Automated countOrdered By: Katharina Toledo on 10-02-2024 Nucleated RBC Auto Ql (Bld) Nucleated erythrocytes [Presence] in Blood by Automated count 0-0.5 [facility] Platelet adequacy [Presence] in Blood by Light microscopyOrdered By: Katharina Toledo on 10-02-2024 Platelets LM Ql (Bld) Platelet adequacy [Presence] in Blood by Light microscopy Normal [facility] Platelet mean volume Auto (B ld) [Entitic vol]Ordered By: Katharina Toledo on 10-02-2024 Platelet mean volume (Bld) [Entitic vol] Platelet mean volume [Entitic volume] in Blood by Automated count 6.3-10.7 [facility] Platelet morphology finding [Identifier] in BloodOrdered By: Katharina Toledo on 10-02-2024 Platelet morphology finding Nom (Bld) Platelet morphology finding [Identifier] in Blood Normal [facility] Platelets Auto (Bld) [#/Vol] Ordered By: Katharina Toledo on 10-02-2024 Platelets (Bld) [#/Vol] Platelets [#/volume] in Blood by Automated count 150-450 [facility] Polychromasia [Presence] in Blood by Light microscopyOrdered By: Katharina Toledo on 10-02-2024 Polychromasia LM Ql (Bld) Polychromasia [Presence] in Blood by Light microscopy [facility] RBC Auto (Bld) [#/Vol]Ordere d By: Katharina Toledo on 10-02-2024 RBC (Bld) [#/Vol] Erythrocytes [#/volume] in Blood by Automated count 3.60-5.00 [facility] Scan and CBCon 10-02-2024 Anisocytosis Ql (Bld) Marked Normal [facility] Comment on above: Performed By: #### F E and TIBC, ARISTIDES, SCAN CBC ####[address] Basophils (Bld) [#/Vol] 0.1 10*3/uL Normal 0.0-0.2 [facility] Comment on above: Performed By: #### F E and TIBC, ARISTIDES, SCAN CBC ####[address] Basophils/100 WBC (Bld) 0.8 % Normal . [facility] Comment on above: Performed By: #### F E and TIBC, ARISTIDES, SCAN CBC ####[address] Eosinophils (Bld) [#/Vol] 0.2 10*3/uL Normal 0.0-0.45 [facility] Comment on above: Performed By: #### F E and TIBC, ARISTIDES, SCAN CBC ####[address] Eosinophils/100 WBC (Bld) 2.3 % Normal . [facility] Comment on above: Performed By: #### F E and TIBC, ARISTIDES, SCAN CBC ####[address] Erythrocyte distribution width (RBC) [Ratio] 29.3 % High 11.9-15.3 [facility] Comment on above: Performed By: #### F E and TIBC, ARISTIDES, SCAN CBC ####[address] Hematocrit (Bld) [Volume fraction] 33.0 % Low 34.0-46.4 [facility] Comment on above: Performed By: #### F E and TIBC, ARISTIDES, SCAN CBC ####[address] Hemoglobin (Bld) [Mass/Vol] 10.6 g/dL Low 11.8-15.4 [facility] Comment on above: Performed By: #### F E and TIBC, ARISTIDES, SCAN CBC ####[address] Hypochromasia Slight Normal [facility] Comment on above: Performed By: #### F E and TIBC, ARISTIDES, SCAN CBC ####[address] Lymphocytes (Bld) [#/Vol] 1.4 10*3/uL Normal 1.00-4.8 [facility] Comment on above: Performed By: #### F E and TIBC, ARISTIDES, SCAN CBC ####[address] Lymphocytes/100 WBC (Bld) 15.8 % Normal . [facility] Comment on above: Performed By: #### F E and TIBC, ARISTIDES, SCAN CBC ####[address] MCH (RBC) [Entitic mass] 26.6 pg Normal 24.7-34.3 [facility] Comment on above: Performed By: #### F E and TIBC, ARISTIDES, SCAN CBC ####[address] MCV (RBC) [Entitic vol] 83.1 fL Normal 80-100 [facility] Comment on above: Performed By: #### F E and TIBC, ARISTIDES, SCAN CBC ####[address] Mean Corpuscular HGB Conc 32.0 g/dL Normal 32.0-35.0 [facility] Comment on above: Performed By: #### F E and TIBC, ARISTIDES, SCAN CBC ####[address] Microcytosis Slight Normal [facility] Comment on above: Performed By: #### F E and TIBC, ARISTIDSE, SCAN CBC ####[address] Monocytes (Bld) [#/Vol] 0.6 10*3/uL Normal 0.0-0.8 [facility] Comment on above: Performed By: #### F E and TIBC, ARISTIDES, SCAN CBC ####[address] Monocytes/100 WBC (Bld) 7.3 % Normal . [facility] Comment on above: Performed By: #### F E and TIBC, ARISTIDES, SCAN CBC ####[address] Neutrophils (Bld) [#/Vol] 6.4 10*3/uL Normal 1.8-7.7 [facility] Comment on above: Performed By: #### F E and TIBC, ARISTIDES, SCAN CBC ####[address] Neutrophils/100 WBC (Bld) 73.8 % Normal . [facility] Comment on above: Performed By: #### F E and TIBC, ARISTIDES, SCAN CBC ####[address] NRBC% 0.0 /100{WBC} Normal 0-0.5 [facility] Comment on above: Performed By: #### F E and TIBC, ARISTIDES, SCAN CBC ####[address] Platelet Estimate Normal Normal Normal [facility] Comment on above: Performed By: #### F E and TIBC, ARISTIDES, SCAN CBC ####[address] Platelet mean volume (Bld) [Entitic vol] 6.9 fL Normal 6.3-10.[address] [facility] Comment on above: Performed By: #### F E and TIBC, ARISTIDES, SCAN CBC ####[place] [id number] [facility] Platelet Morphology Normal Normal Normal [facility] Comment on above: Result Comment: PERF ORMED BY: [facility] [facility] [address] [place] [address] PATHOLOGIST [employer]EN [employer] OFFBEARER KATHLEEN RAMOS M.D. Performed By: #### F E and TIBC, ARISTIDES, SCAN CBC ####[address] Platelets (Bld) [#/Vol] 337 10*3/uL Normal 150-450 [facility] Comment on above: Performed By: #### F E and TIBC, ARISTIDES, SCAN CBC ####[address] Polychromasia Slight Normal [facility] Comment on above: Performed By: #### F E and TIBC, ARISTIDES, SCAN CBC ####[address] RBC (Bld) [#/Vol] 3.98 10*6/uL Normal 3.60-5.00 [facility] Comment on above: Performed By: #### F E and TIBC, ARISTIDES, SCAN CBC ####[address] WBC (Bld) [#/Vol] 8.7 10*3/uL Normal 3.8-11.6 [facility] Comment on above: Performed By: #### F E and TIBC, ARISTIDES, SCAN CBC ####[address] Serum or plasma iron binding capacity measurement (mass/volume)Ordered By: Katharina Toledo on 10-02-2024 Iron binding capacity [Mass/Vol] Iron binding capacity [Mass/volume] in Serum or Plasma 255-450 [facility] Serum or plasma iron saturat ion measurement (mass fraction)Ordered By: Katharina Toledo on 10-02-2024 Iron saturation [Mass fraction] Iron saturation [Mass Fraction] in Serum or Plasma Low 20-50 [facility] Transferrin [Mass/volume] in Serum or PlasmaOrdered By: Katharina Toledo on 10-02-2024 Transferrin [Mass/Vol] Transferrin [Mass/volume] in Serum or Plasma 203-362 [facility] WBC Auto (Bld) [#/Vol]Ordere d By: Katharina Toledo on 10-02-2024 WBC (Bld) [#/Vol] Leukocytes [#/volume ] in Blood by Automated count 3.8-11.6 [facility] Office Visiton 09-24-2024 Follow-up visit [id number] Breann Starks 1945 F Date Provider Department Center 09/24/2024 [id number] ALVA AMISH Lubin Family History Adopted: Yes Family history unknown: Yes Family Status - Relation Status Age at Mother Father Level of Service:82837 [place] OFFICE/OUTPATIENT ESTABLISHED MOD MDM 30 MIN Reason for Visit and Comments: Atrial Fibrillation [80] - Denies palpitations, lightheadedness/synco pe, and bleeding on Eliquis. Congestive Heart Failure [127] severe pulmonary hypertension [Other] - Denies chest pain and SOB. Edema [[id number]] - NOT taking lasix currently due to no LE edema. Normal [facility] Urinalysis macro (dipstick) panel (U)on 09-19-2024 Bilirubin, UA Negative Negative - 4(70) +++ mg/dL [facility] Blood, UA Positive Negative - 50 Shadi/mcL [facility] Clarity, UA Cloudy [facility] Color, UA Dark Sara [facility] Glucose, UA Negative Negative - 1999(110) ++++ mg/dL [facility] Interpretation and review of laboratory results Abnormal [facility] Ketones, UA Positive Negative - 160(16) ++++ mg/dL [facility] Leukocytes, UA Moderate Negative - 500+++ Rosette/mcL [facility] Nitrite, UA Negative Negative - Positive [facility] pH, UA 5 5 - 9 [facility] Protein, UA 3+ Negative - 1999(20) ++++ mg/dL [facility] Spec Grav, UA 1.3 1 - 1.03 [facility] Urobilinogen, UA 0.2 0.2 - 12 mg/dL [facility] C reactive protein [Mass/vol ume] in Serum or PlasmaOrdered By: Pedro Pablo Cruz on 08-24-2024 CRP [Mass/Vol] C reactive protein [Mass/volume] in Serum or Plasma High 0.0-0.5 [facility] C-Reactive Proteinon 2 024 C-Reactive Protein 1.1 mg/dL High 0.0-0.5 [facility] Comment on above: Result Comment: PERF ORMED BY: [facility] [address] [place] [address] PATHOLOGIST [employer] OFFBEARER KATHLEEN RAMOS M.D. Performed By: #### C RP #### [facility] [address] CBC W Auto Differential pane l (Bld)on 08-24-2024 Basophils (Bld) [#/Vol] 0.1 10*3/uL 0.0 - 0.2 10*3/uL [facility] Basophils/100 WBC Manual cnt (Syn fld) 0.9 % . [facility] Eosinophils (Bld) [#/Vol] 0.2 10*3/uL 0.0 - 0.45 10*3/uL [facility] Eosinophils/100 WBC Manual cnt (Syn fld) 2.6 % . [facility] Erythrocyte distribution width (RBC) [Ratio] 19.3 % High 11.9 - 15.3 % [facility] Hematocrit (Bld) [Volume fraction] 28.2 % Low 34.0 - 46.4 % [facility] Hemoglobin (Bld) [Mass/Vol] 8.6 g/dL Low 11.8 - 15.4 g/dL [facility] Interpretation and review of laboratory results Abnormal [facility] Lymphocytes (Bld) [#/Vol] 2.1 10*3/uL 1.00 - 4.8 10*3/uL [facility] Lymphocytes/100 WBC Manual cnt (Syn fld) 23.5 % . [facility] MCH (RBC) [Entitic mass] 21.8 pg Low 24.7 - 34.3 pg [facility] MCHC (RBC) [Mass/Vol] 30.4 g/dL Low 32.0 - 35.0 g/dL [facility] MCV (RBC) [Entitic vol] 71.9 fL Low 80 - 100 [facility] Monocytes (Bld) [#/Vol] 0.6 10*3/uL 0.0 - 0.8 10*3/uL [facility] Monocytes+Macrophages/ 100 WBC Manual cnt (Syn fld) 6.8 % . [facility] Neutrophils (Bld) [#/Vol] 5.9 10*3/uL 1.8 - 7.7 10*3/uL [facility] Neutrophils/100 WBC Manual cnt (Syn fld) 66.2 % . [facility] NRBC 0 /100{WBC} 0 - 0.5 /100{WBC} [facility] Platelet mean volume (Bld) [Entitic vol] 6.9 fL 6.3 - 10.7 fL [facility] Platelets (Bld) [#/Vol] 345 10*3/uL 150 - 450 10*3/uL [facility] RBC LM.HPF (Urine sed) [#/Area] 3.93 10*6/uL 3.60 - 5.00 10*6/uL [facility] WBC (Bld) [#/Vol] 8.9 10*3/uL 3.8 - 11.6 10*3/uL [facility] WBC LM.HPF (Urine sed) [#/Area] 8.9 10*3/uL 3.8 - 11.6 10*3/uL [facility] Complete Blood Count Auto Di ffon 08-24-2024 Basophils (Bld) [#/Vol] 0.1 10*3/uL Normal 0.0-0.2 [facility] Comment on above: Result Comment: PERF ORMED BY: [place] [address] PATHOLOGIST GRE[employer] OFFBEARER KATHLEEN RAMOS M.D. Performed By: #### F ER, [id number], CBC, FE and TIBC #### [facility] [address] Basophils/100 WBC (Bld) 0.9 % Normal . [facility] Comment on above: Performed By: #### F ER, [id number], CBC, FE and TIBC #### [facility] [address] Eosinophils (Bld) [#/Vol] 0.2 10*3/uL Normal 0.0-0.45 [facility] Comment on above: Performed By: #### F ER, [id number], CBC, FE and TIBC #### [address] Eosinophils/100 WBC (Bld) 2.6 % Normal . [facility] Comment on above: Performed By: #### F ER, [id number], CBC, FE and TIBC #### [address] Erythrocyte distribution width (RBC) [Ratio] 19.3 % High 11.9-15.3 [facility] Comment on above: Performed By: #### F ER, [id number], CBC, FE and TIBC #### [address] Hematocrit (Bld) [Volume fraction] 28.2 % Low 34.0-46.4 [facility] Comment on above: Performed By: #### F ER, [id number], CBC, FE and TIBC #### [address] Hemoglobin (Bld) [Mass/Vol] 8.6 g/dL Low 11.8-15.4 [facility] Comment on above: Performed By: #### F ER, [id number], CBC, FE and TIBC #### [address] Lymphocytes (Bld) [#/Vol] 2.1 10*3/uL Normal 1.00-4.8 [facility] Comment on above: Performed By: #### F ER, [id number], CBC, FE and TIBC #### [address] Lymphocytes/100 WBC (Bld) 23.5 % Normal . [facility] Comment on above: Performed By: #### F ER, [id number], CBC, FE and TIBC #### [address] MCH (RBC) [Entitic mass] 21.8 pg Low 24.7-34.3 [facility] Comment on above: Performed By: #### F ER, [id number], CBC, FE and TIBC #### [address] MCV (RBC) [Entitic vol] 71.9 fL Low 80-100 [facility] Comment on above: Performed By: #### F ER, [id number], CBC, FE and TIBC #### [address] Mean Corpuscular HGB Conc 30.4 g/dL Low 32.0-35.0 [facility] Comment on above: Performed By: #### F ER, [id number], CBC, FE and TIBC #### [address] Monocytes (Bld) [#/Vol] 0.6 10*3/uL Normal 0.0-0.8 [facility] Comment on above: Performed By: #### F ER, [id number], CBC, FE and TIBC #### [address] Monocytes/100 WBC (Bld) 6.8 % Normal . [facility] Comment on above: Performed By: #### F ER, [id number], CBC, FE and TIBC #### [address] Neutrophils (Bld) [#/Vol] 5.9 10*3/uL Normal 1.8-7.7 [facility] Comment on above: Performed By: #### F ER, [id number], CBC, FE and TIBC #### [address] Neutrophils/100 WBC (Bld) 66.2 % Normal . [facility] Comment on above: Performed By: #### F ER, [id number], CBC, FE and TIBC #### [address] NRBC% 0.0 /100{WBC} Normal 0-0.5 [facility] Comment on above: Performed By: #### F ER, [id number], CBC, FE and TIBC #### [facility] [address] Platelet mean volume (Bld) [Entitic vol] 6.9 fL Normal 6.3-10.[address] [facility] Comment on above: Performed By: #### F ER, [id number], CBC, FE and TIBC #### [facility] [address] Platelets (Bld) [#/Vol] 345 10*3/uL Normal 150-450 [facility] Comment on above: Performed By: #### F ER, [id number], CBC, FE and TIBC #### [address] RBC (Bld) [#/Vol] 3.93 10*6/uL Normal 3.60-5.00 [facility] Comment on above: Performed By: #### F ER, [id number], CBC, FE and TIBC #### [facility] [address] WBC (Bld) [#/Vol] 8.9 10*3/uL Normal 3.8-11.6 [facility] Comment on above: Performed By: #### F ER, [id number], CBC, FE and TIBC #### [address] Erythrocyte Sedimentation Ra aren 08-24-2024 ESR (Bld) [Velocity] 103 mm/h High 0-29 [facility] Comment on above: Result Comment: PERF ORMED BY: [facility] [address] [place] [address] PATHOLOGIST [employer] OFFBEARER KATHLEEN RAMOS M.D. Performed By: #### E SR ####[facility] [place] [address] Erythrocyte sedimentation ra te by Photometric methodOrdered By: Pedro Pablo Cruz on 08-24-2024 ESR Photometric method (Bld) [Velocity] Erythrocyte sedimentation rate by Photometric method High 0-29 [facility] Ferritinon 08-24-2024 Ferritin [Mass/Vol] 8.6 ng/mL Low 11.0-306.8 [facility] Comment on above: Performed By: #### F ER, [id number], CBC, FE and TIBC #### [facility] [address] [place] [id number] [facility] Folate [Mass/volume] in Seru m or PlasmaOrdered By: Katharina Toledo on 08-24-2024 Folate [Mass/Vol] Folate [Mass/volume] in Serum or Plasma >5.9 [facility] Comment on above: Folate reference ran ge: >5.9 ng/mlThe WHO technical consultation on folate and vitamin [id number] has determined that folate concentrations lessthan 4 ng/ml are considered deficient. Iron and TIBC Profileon 08-12 % Iron Saturation 3.2 % Low 20-50 [facility] Comment on above: Performed By: #### F ER, [id number], CBC, FE and TIBC #### [facility] [address] [place] [address] [facility] Iron [Mass/Vol] 14 ug/dL Low 50-212 [facility] Comment on above: Performed By: #### F ER, [id number], CBC, FE and TIBC #### [facility] [address] [place] [address] [facility] Total Iron Binding Capacity 437 ug/dL Normal 255-450 [facility] Comment on above: Performed By: #### F ER, [id number], CBC, FE and TIBC #### [facility] [address] [place] [address] [place] Transferrin [Mass/Vol] 312 mg/dL Normal 203-362 [facility] Comment on above: Performed By: #### F ER, [id number], CBC, FE and TIBC #### [facility] [address] [place] [address] [facility] Vit. B12/Folate Profileon Cobalamin (Vitamin B12) [Mass/Vol] 417 pg/mL Normal 180-914 [facility] Comment on above: Performed By: #### F ER, [id number], CBC, FE and TIBC #### [facility] [address] Folate 28.0 ng/mL Normal >5.9 [facility] Comment on above: Result Comment: Nayely te reference range: >5.9 ng/ml The WHO technical consultation on folate and vitamin b12 deficiencies has determined that folate concentrations less than 4 ng/ml are considered deficient. PERFORMED BY: [place] [address] PATHOLOGIST GREEN [employer] OFFBEARER KATHLEEN RAMOS M.D. Performed By: #### F ER, [id number], CBC, FE and TIBC #### [facility] [address] Vitamin B12 ser/plasOrdered By: Katharina Toledo on 08-24-2024 Cobalamin (Vitamin B12) [Mass/Vol] Vitamin B12 ser/plas 180-914 [facility] TRANSFERRINon 07-25-2024 Transferrin [Mass/Vol] 284 mg/dL 192 - 364 mg/dL [facility] Comment on above: Performed at: [address] [id number] Cloth Sponger: Baudilio Givens PhD, Phone: [phone] [facility] CBC WITH AUTO DIFFon BASOPHILS ABSOLUTE AUTO 0.1 [facility] Basophils/100 WBC (Bld) 0.9 % 0.2 - 2.0 % [facility] Eosinophils/100 WBC (Bld) 0.9 % 0.9 - 7.0 % [facility] Erythrocyte distribution width (RBC) [Ratio] 17.7 % High 11.0 - 15.0 % [facility] Hematocrit (Bld) [Volume fraction] 29.9 % Low 36.0 - 48.0 % [facility] Hemoglobin (Bld) [Mass/Vol] 8.7 g/dL Low 12.0 - 16.0 g/dL [facility] IMMATURE GRANULOCYTES ABS AUTO 0.03 [facility] Immature granulocytes/100 WBC (Bld) 0.3 % 0.0 - 0.5 % [facility] Interpretation and review of laboratory results Abnormal [facility] LYMPHOCYTES ABSOLUTE AUTO 1.4 [facility] Lymphocytes/100 WBC (Bld) 14.1 % Low 20.5 - 60.0 % [facility] MCH (RBC) [Entitic mass] 22.3 pg Low 26.7 - 34.0 pg [facility] MCHC (RBC) [Mass/Vol] 29.1 g/dL Low 29.9 - 35.2 g/dL [facility] MCV (RBC) [Entitic vol] 76.7 fL Low 81.0 - 99.0 fL [facility] MONOCYTES ABSOLUTE AUTO 0.7 [facility] Monocytes/100 WBC (Bld) 6.6 % 1.7 - 12.0 % [facility] NEUTROPHILS ABSOLUTE AUTO 7.7 High [facility] Neutrophils/100 WBC (Bld) 77.2 % High 43.0 - 75.0 % [facility] Platelet mean volume (Bld) [Entitic vol] 9.3 fL Low 9.5 - 13.5 fL [facility] TBH EO # 0.1 [facility] TB PLT 328 [facility] RBC 3.9 Low [facility] WBC 10 [facility] METRO IRON AND TIBCon 2023 Interpretation and review of laboratory results Abnormal [facility] IRON 17 ug/dL Low 50.0 - 170.0 ug/dL [facility] PERCENT IRON SATURATION 4.5 % [facility] TOTAL IRON BINDING CAPACITY 381 ug/dL 250.0 - 450.0 ug/dL [facility] Visiton 07-18-2024 Follow-up visit [id number] Breann Starks 1945 F Date Provider Department Center 07/18/2024 [id number] ALVA AMISH Lubin Family History Adopted: Yes Family history unknown: Yes Family Status - Relation Status Age at Mother Father Level of Service:53480 [place] OFFICE/OUTPATIENT ESTABLISHED MOD MDM 30 MIN Reason for Visit and Comments: Atrial Fibrillation [80] PACEMAKER [Other] Coronary Artery Disease [187] Hypertension [970668] Sinus node dysfunction [Other] - HAS BOSTON PACER Obesity [[id number]] Edema [[id number]] Normal [facility] CNOVon 05-22-2024 CNOV Office Visit (LOORRM ) BREANN STARKS ([id number]) 1945 F Date Time Provider Department 05/22/24 [...] Duration Units: Months Frequency: Intermittent Intervention/Comfort measure: Reposition;Relaxation ;Medication;Positioni ng baclofen, percocet HISTORY: Breann Starks has complains [...] recommended for second opinion at [facility]. She also had a CRP and [...] patient denies a current diagnosis of diabetes Hematologic/Lymphatic : on DOAC Psychologic: negative for any recent [...] I ordered (more content not included)... Normal [facility] XR SHLDR 4V AP/HECTOR/LAT/OUTLE T LTon [...] other significant abnormality. IMPRESSION: EXPECTED POSTOPERATIVE APPEARANCE Senior Private Client Advisor: STEVE Transcribe Date/Time: May 22 2024 2:42P Dictated by : VILMA ABREU MD This examination was interpreted and the report reviewed and electronically signed by: VILMA ABREU MD on May 22 2024 2:42PM EST [id number] Normal [facility] XR Shoulder - left 4 Viewson 05-22-2024 IMPRESSION: EXPECTED POSTOPERATIVE APPEARANCE Senior Private Client Advisor: PSCB Transcribe Date/Time: May 22 2024 2:42P [...] other significant abnormality. DIVISION [facility] RADIOLOGY [facility] - 05/22/2024 * * *Final Report* * [...] significant abnormality. IMPRESSION IMPRESSION: EXPECTED POSTOPERATIVE APPEARANCE Senior Private Client Advisor: STEVE Transcribe Date/Time: May 22 2024 2:42P Dictated by : VILMA ABREU MD This examination was interpreted and the report reviewed and electronically signed by: VILMA ABREU MD on May 22 2024 2:42PM EST [facility] Radiology Study observation (narrative) [facility] XR Shoulder - left 4 ViewsOr dered By: Cc Provider on 05-22-2024 [facility] ALL CBC WITH AUTO DIFFon BASOPHILS ABSOLUTE AUTO 0.0 [facility] Basophils/100 WBC (Bld) 0.6 % 0.2 - 2.0 % [facility] Eosinophils/100 WBC (Bld) 1.0 % 0.9 - 7.0 % [facility] Erythrocyte distribution width (RBC) [Ratio] 19.6 % High 11.0 - 15.0 % [facility] Hematocrit (Bld) [Volume fraction] 32.9 % Low 36.0 - 48.0 % [facility] Hemoglobin (Bld) [Mass/Vol] 9.7 g/dL Low 12.0 - 16.0 g/dL [facility] IMMATURE GRANULOCYTES ABS AUTO 0.02 [facility] Immature granulocytes/100 WBC (Bld) 0.3 % 0.0 - 0.5 % [facility] Interpretation and review of laboratory results Abnormal [facility] LYMPHOCYTES ABSOLUTE AUTO 1.4 [facility] Lymphocytes/100 WBC (Bld) 20.4 % Low 20.5 - 60.0 % [facility] MCH (RBC) [Entitic mass] 22.8 pg Low 26.7 - 34.0 pg [facility] MCHC (RBC) [Mass/Vol] 29.5 g/dL Low 29.9 - 35.2 g/dL [facility] MCV (RBC) [Entitic vol] 77.4 fL Low 81.0 - 99.0 fL [facility] MONOCYTES ABSOLUTE AUTO 0.7 [facility] Monocytes/100 WBC (Bld) 9.8 % 1.7 - 12.0 % [facility] NEUTROPHILS ABSOLUTE AUTO 4.7 [facility] Neutrophils/100 WBC (Bld) 67.9 % 43.0 - 75.0 % [facility] Platelet mean volume (Bld) [Entitic vol] 8.5 fL Low 9.5 - 13.5 fL [facility] TBH EO # 0.1 [facility] TBH PLT 278 [facility] TB RBC 4.25 [facility] TB WBC 7.0 [facility] NM bone 3 phaseon 05-02-2024 NM bone [address] [address] Nuclear Medicine Report Signed Patient: Breann Starks MR#: [id number] : 1945 Acct:[id number] Age/Sex: 78 / F ADM Date: 05/02/24 Loc: [place] Room: Type: [facility] Attending Dr: Pedro Pablo Cruz PA-C Copies to: YOLY Sanon Jeffrey S DO Ordering Provider: Pedro Pablo Cruz PA-C Date of Service: 05/02/24 [place] bone 3 phase: M25.512, Z96.612 Nuclear medicine [...] be degenerative. Plain film correlation. No hyperemia. [place] bone 3 phase IMPRESSION: Increased uptake of the left the glenoid. There may be concern for loosening. Correlate with plain film imaging. Increased uptake of the left acromion. May represent degenerative change. Fracture may be present in this region. Correlate with plain film imaging. Impression dictated by: Etienne Rhodes M.D.05/02/2024 2:44 PM Dictation Location: [place] [address] Transcribed By: [facility] 05/02/24 1444 Dictated By: Etienne Rhodes DO 05/02/24 1440 Signed By: 05/02/24 1444 Normal [facility] Lab Reportson 03-07-2024 Lab Reports [id number] .00TIFF Normal [facility] 36on 03-06-2024 36 Echo from 03/05/2024 reviewed [...] to her pharmacy. BMP order faxed to [facility]. Breann verbalized understanding. Normal [facility] Consent for Procedure/Surger yon 03-05-2024 Consent for Procedure/Surgery [id number] .00TIFF Normal [facility] Ambulatory Visit Summaryon 0 03-02-2024 Ambulatory Visit Summary BREANN STARKS :1945 Visit Date:03/02/2024 Ambulatory Visit Instructions Your Care Team Attending Physician - CATHERINE CUBA, Ortega Bishop Primary Care Physician - Cate JUÁREZ, Barbara Lemus Referring Physician - CIRA CUBA, SAHU This Is Your Medications List Contact prescribing physician if questions or concerns acetaminophen-hydroco done (acetaminophen-hydroc odone 325 mg-5 mg oral tablet) apixaban (Eliquis [...] BSO - Total abdominal hysterectomy and bilateral salpingo-oophorectomy . Discharge Vitals Heart Rate (Peripheral) 71 Respiratory Rate 16 Blood Pressure 118/75 Height 141 cm Height 56 in Weight 107.6 kg Weight 236.72 lb BMI 54.12 Medications What How Much When Instructions Unchanged acetaminophen-hydroco done (acetaminophen-hydroc odone 325 mg-5 mg oral tablet) 1 Tablets [...] for choosing us for your care. Normal [facility] ED Note-Physicianon 03-02-20 ED Note-Physician [id number]. 00TIFF Normal [facility] Insurance Correspondenceon 0 03-02-2024 Insurance Correspondence [id number] 1.00TIFF Normal [facility] Lab Reportson 03-02-2024 Lab Reports [id number] .00TIFF Normal [facility] 36on 01-25-2024 36 Patient called stating ever since her device was adjusted last month she's had this weird feeling in her throat. I called Sony Asif from [employer] and he told me this feeling she's having should not be from her device. Patient informed. I suggested she see PCP for this. She verbalized understanding. Normal [facility] Office Visiton 01-17-2024 Follow-up visit [id number] Breann Starks 1945 F Date Provider Department Center 01/17/2024 NICANOR REGAN Family History Adopted: Yes Family history unknown: Yes Family Status - Relation Status Age at Mother Father Level of Service:176[address] [place] OFFICE/OUTPATIENT ESTABLISHED MOD MDM 30 MIN Reason for Visit and Comments: Atrial Fibrillation [80] Normal [facility] DXA Skeletal system Views fo r bone densityon 12-12-2023 Interpretation and review of laboratory results Normal [facility] Healthcare normal [facility] Healthcare [facility] Radiology Study observation (narrative) [facility] XR lumbar spine 6V w bending on 11-16-2023 XR lumbar spine 6V w bending [facility] [place] [address] XRay Report Signed Patient: Breann Starks MR#: [id number] 171 : 1945 Acct:[id number] Age/Sex: 77 / F ADM Date: 11/16/23 Loc: XD Room: Type: [facility] Attending Dr: Kayley DESIR Copies [...] Benton Jr., D.OMeena11/16/2023 4:37 PM Dictation Location: [place] [address] Transcribed By: [facility] 11/16/23 1637 Dictated By: Francisco J Benton Jr, DO 11/16/23 1636 Signed By: 11/16/23 1637 Normal [facility] MR lumbar spine wo conon MR lumbar spine wo con [facility] Main [place] [address] [place] [address] XRay Report Signed Patient: Breann Starks MR#: [id number] 171 : 1945 Acct:[id number] Age/Sex: 77 / F ADM Date: 10/11/23 Loc: Room: Type: [facility] Attending Dr: Claire DESIR Copies to: THANG Porter Ordering Provider: THANG Porter Date of Service: 10/11/23 MR/MR lumbar spine wo con: LUMBAR RADICULPATHY ([id number]) XR/XR pre/post mri xray: LUMBAR RADICULPATHY CLINICAL [...] Eleanor Reece M.D.10/11/2023 4:10 PM Dictation Location: [place] [address] Transcribed By: [facility] 10/11/23 1610 Dictated By: Eleanor Reece MD 10/11/23 1133 Signed By: 10/11/23 1610 Normal [facility] XR LSPINE W_OBLS AND FLEX_EX [...] by: PAULA BROWN Date: 2023-01-31 11:34 Normal [facility] LIPID PROFILEon 12-16-2022 CHOL-HDL RATIO NORM SEE BELOW Normal [facility] Comment on above: Result Comment: 3.3 - 4.4 LOW RISK 4.4 - 7.1 AVERAGE RISK 7.1 - 11.0 MODERATE RISK >11.0 HIGH RISK Performed By: #### L IPID ####[facility] Apnziftpec9354 [place] [id number]. Erasmo Smith Cholesterol [Mass/Vol] 105 mg/dL Normal <=200 [facility] Comment on above: Performed By: #### L IPID ####[facility] Pqcxhlpnmr1832 [place] [phone]. Erasmo Smith Cholesterol in HDL [Mass/Vol] 48 mg/dL Normal 40-60 [facility] Comment on above: Performed By: #### L IPID ####[facility] Wveztkygkk2489 [place] [phone]. Erasmo Luis Cholesterol in LDL [Mass/Vol] 48.2 mg/dL Normal [facility] Comment on above: Performed By: #### L IPID ####[facility] Yhyhokyfpd4231 [place] [phone]. Erasmo Luis Cholesterol.total/Chol esterol in HDL [Mass ratio] 2.2 {ratio} Normal [facility] Comment on above: Performed By: #### L IPID ####[facility] Wvhzvnzqet9888 [place] [phone]. Erasmo Smith HDL NORMAL > or = 60 mg/dl - LO W CARDIOVASCULAR RISK <40 mg/dl - HIGH CARDIOVASCULAR RISK Normal [facility] Comment on above: Performed By: #### L IPID ####[facility] Jscqyiulyz3516 [place] [phone]. Erasmo Smith LDL CALC NORMAL SEE BELOW Normal [facility] Comment on above: Result Comment: <100 mg/dl OPTIMAL 100 - 129 mg/dl NEAR OR ABOVE OPTIMAL 130 - 159 mg/dl BORDERLINE HIGH 160 - 189 mg/dl HIGH >190 mg/dl VERY HIGH Performed By: #### L IPID ####[facility] Pwtiaomyvb1356 [place] [phone]. Erasmo Smith Triglyceride [Mass/Vol] 44 mg/dL Normal <=150 [facility] Comment on above: Performed By: #### L IPID ####[facility] Xoaukcmpkc8114 [place] [phone]. Erasmo Smith VLDL CALC 8.8 mg/dL Normal [facility] Comment on above: Performed By: #### L IPID ####[facility] Xxprdmtfgd9078 [place] [address]DrMeena Smith CULTURE BLOODon 12-04-2022 Microscopic examination of blood, culture Culture Observations: Aerobic and Anaerobic bottle positive. BCID: E. Coli Isolate 1 Escherichia coli Growth of ORGANISM 1 Escherichia coli ANTIBIOTIC M.I.C RX STATUS Ampicillin <=2 S F Ampicillin/Sulbactam <=2 S F Piperacillin/Tazobact am <=4 S F Cefazolin <=4 S F Ceftazidime <=1 S F Ceftriaxone <=1 S F Ertapenem <=0.5 S F Imipenem <=0.25 S F Amikacin <=2 S F Gentamicin <=1 S F Tobramycin <=1 S F Ciprofloxacin <=0.25 S F Levofloxacin <=0.12 S F Trimethoprim/Sulfamet hoxazole <=20 S F Normal [facility] Comment on above: Performed By: #### B LDCX1 ####[facility] Cxmevfhkol1537 [place] [address]Dr. Erasmo Smith BNPon 12-03-2022 Natriuretic peptide B (Bld) [Mass/Vol] 413.0 pg/mL Normal <=1,800.0 [facility] Comment on above: Performed By: #### B [employer]IL SPRING [employer]SEMBLER #### [facility] [address] [place] [address] [address] Erasmo Smith CBC AUTO DIFFon 12-03-2022 BASO # 0.0 103/ul Normal 0.0-0.1 [facility] Comment on above: Performed By: #### C BC ####[facility] [address] [place], [place] [address]Dr. Erasmo Smith Basophils/100 WBC (Bld) 0.2 % Normal 0.2-2.0 [facility] Comment on above: Performed By: #### C BC ####[facility] Igsxdaeyls5198 [place] [address]Dr. Erasmo Smith EO # 0.4 103/ul Normal 0.0-0.7 [facility] Comment on above: Performed By: #### C BC ####[facility] [address]ce[address] [place], [place] [address]Dr. Erasmo Smith Eosinophils/100 WBC (Bld) 2.1 % Normal 0.9-7.0 [facility] Comment on above: Performed By: #### C BC ####[facility] [address]we[address]axs[address] [place], [place] [address]Dr. Erasmo Smith Erythrocyte distribution width (RBC) [Ratio] 17.2 % Critically high 11.0-15.0 [facility] Comment on above: Performed By: #### C BC ####[facility] Zkbdtcfpxr[address] [place], [place] [address]Dr. Erasmo Smith Hematocrit (Bld) [Volume fraction] 29.2 % Critically low 36.0-48.0 [facility] Comment on above: Performed By: #### C BC ####[facility] [address]xssu[address] [place], [place] [address]Dr. Erasmo Smith Hemoglobin (Bld) [Mass/Vol] 9.5 g/dL Critically low 12.0-16.0 [facility] Comment on above: Performed By: #### C BC ####[facility] [address] [place], [place] [address]Dr. Erasmo Smith IG # 0.13 10e3/ul Critically high 0.00-0.03 [facility] Comment on above: Performed By: #### C BC ####[facility] N[address]km[address] [place], [place] [address]Dr. Erasmo Smith IG % 0.8 % Critically high 0.0-0.5 [facility] Comment on above: Performed By: #### C BC ####[facility] Idlrbsqiay3692 [place] [phone]. Erasmo Smith LYMPH # 1.8 103/ul Normal 1.2-3.8 [facility] Comment on above: Performed By: #### C BC ####[facility] Hbfnxuhslg0320 [place] [address]Dr. Erasmo Smith Lymphocytes/100 WBC (Bld) 10.3 % Critically low 20.5-60.0 [facility] Comment on above: Performed By: #### C BC ####[facility] Xrxqvneydk2369 [place] [address]Dr. Erasmo Smith MANUAL DIFF REQ NO Normal [facility] Comment on above: Performed By: #### C BC ####[facility] Jspohbumot2133 [place] [address]Dr. Erasmo Smith MCH (RBC) [Entitic mass] 25.7 pg Critically low 26.7-34.0 [facility] Comment on above: Performed By: #### C BC ####[facility] [address]wr[address]ii[address] [place], [place] [address]Dr. Erasmo Smith MCHC (RBC) [Mass/Vol] 32.5 g/dL Normal 29.9-35.2 [facility] Comment on above: Performed By: #### C BC ####[facility] Sxcpikpgec3050 [place] [address]Dr. Erasmo Smith MCV (RBC) [Entitic vol] 79.1 fL Critically low 81.0-99.0 [facility] Comment on above: Performed By: #### C BC ####[facility] Ilblercsdr3378 [place] [address]Dr. Erasmo Smith MONO # 1.5 103/ul Critically high 0.3-0.8 [facility] Comment on above: Performed By: #### C BC ####[facility] [address]zzbxa[address] [place], [place] [address]Dr. Erasmo Smith Monocytes/100 WBC (Bld) 8.7 % Normal 1.7-12.0 [facility] Comment on above: Performed By: #### C BC ####[facility] Kz[address]efgh7859 [place], [place] [address]Ma. Heavenean Smith NEUT # 13.4 103/ul Critically high 1.4-6.5 [facility] Comment on above: Performed By: #### C BC ####[facility] Dbjdkyfzpj6905 [place], [place] [address]Wy. Erasmo Smith Neutrophils/100 WBC (Bld) 77.9 % Critically high 43.0-75.0 [facility] Comment on above: Performed By: #### C BC ####[facility] Jsinhifxah7773 [place] [phone]. Erasmo Smith Platelet mean volume (Bld) [Entitic vol] 9.3 fL Critically low 9.5-13.5 [facility] Comment on above: Performed By: #### C BC ####[facility] Tcbaqetecq0884 [place] [phone]. Erasmo Smith PLT 205 103/ul Normal 150-450 [facility] Comment on above: Performed By: #### C BC ####[facility] Ztderydrwh7116 [place], [place] [address]Oe. Erasmo Smith RBC 3.69 106/ul Critically low 4.20-5.40 [facility] Comment on above: Performed By: #### C BC ####[facility] Jycjjtoyxw7433 [place], [place] [address]Vl. Erasmo Smith WBC 17.2 103/ul Critically high 4.0-11.0 [facility] Comment on above: Performed By: #### C BC ####[facility] Zxvyfwbtjm9287 [place] [phone] Smith MAGNESIUMon 12-03-2022 Magnesium [Mass/Vol] 1.9 mg/dL Normal 1.8-2.4 [facility] Comment on above: Performed By: #### B [employer]ING [employer]SEMBLER #### [facility] [address] [place], [place] [address] Dr. Erasmo Smith PROF 14(COMP METB)on 023 Albumin [Mass/Vol] 2.6 g/dL Critically low 3.4-5.0 [facility] Comment on above: Performed By: #### B [employer] SPRING ASSEMBLER #### [facility] [address] [place] [address] Dr. Erasmo Smith Albumin/Globulin [Mass ratio] 0.6 {ratio} Normal [facility] Comment on above: Performed By: #### B [employer]IL SPRING ASSEMBLER #### [facility] [address] [place] [address] Dr. Erasmo Smith ALP [Catalytic activity/Vol] 123 U/L Critically high 46-116 [facility] Comment on above: Performed By: #### B [employer]IL [employer]ING ASSEMBLER #### [facility] [address] [place] [address] Dr. Erasmo Smith ALT [Catalytic activity/Vol] 28 U/L Normal 14-59 [facility] Comment on above: Performed By: #### B [employer]IL SPRING ASSEMBLER #### [facility] [address] [place] [address] Dr. Erasmo Smith Anion gap [Moles/Vol] 9.4 mmol/L Normal [facility] Comment on above: Performed By: #### B [employer]IL SPRING ASSEMBLER #### [facility] [address] [place] [address] Dr. Erasmo Smith AST [Catalytic activity/Vol] 21 U/L Normal 15-37 [facility] Comment on above: Performed By: #### B [employer]IL SPRING ASSEMBLER #### [facility] [address] [place] [address] Dr. Erasmo Smith Bilirubin [Mass/Vol] 0.3 mg/dL Normal 0.2-1.0 [facility] Comment on above: Performed By: #### B [employer] SPRING ASSEMBLER #### [facility] [address] [place] [address] Dr. Erasmo Smith Calcium [Mass/Vol] 8.3 mg/dL Critically low 8.5-10.1 [facility] Comment on above: Performed By: #### B [employer]IL SPRING ASSEMBLER #### [facility] [address] [place] [address] Dr. Erasmo Smith Chloride [Moles/Vol] 105 mmol/L Normal 98-107 [facility] Comment on above: Performed By: #### B [employer]IL SPRING ASSEMBLER #### [facility] [address] [place] [address] [address] Erasmo Smith CO2 [Moles/Vol] 27.1 mmol/L Normal 21.0-32.0 [facility] Comment on above: Performed By: #### B [employer] SPRING ASSEMBLER #### [facility] [address] [place] [address] Dr. Erasmo Smith Creatinine [Mass/Vol] 0.55 mg/dL Normal 0.55-1.02 [facility] Comment on above: Performed By: #### B [employer]IL SPRING ASSEMBLER #### [facility] [address] [place] [address] Dr. Erasmo Smith EGFR-AF NAURUAN >60 Normal >=60 [facility] Comment on above: Performed By: #### B [employer]IL SPRING ASSEMBLER #### [facility] [address] [place] [address] Dr. Erasmo Smith EGFR-NON AF NAURUAN >60 Normal >=60 [facility] Comment on above: Performed By: #### B COIL SPRING ASSEMBLER #### [facility] [address] [place] [address] Dr. Erasmo Smith Globulin (S) [Mass/Vol] 4.0 g/dL Normal [facility] Comment on above: Performed By: #### B COIL SPRING ASSEMBLER #### [facility] [address] [place] [address] Dr. Erasmo Smith Glucose [Mass/Vol] 132 mg/dL Critically high 74-106 [facility] Comment on above: Performed By: #### B [employer]IL SPRING ASSEMBLER #### [facility] [address] [place] [address] Dr. Erasmo Smith Potassium [Moles/Vol] 3.5 mmol/L Normal 3.5-5.1 [facility] Comment on above: Performed By: #### B [employer]IL SPRING ASSEMBLER #### [facility] [address] [place] [address] Dr. Erasmo Smith Protein [Mass/Vol] 6.6 g/dL Normal 6.4-8.2 [facility] Comment on above: Performed By: #### B COIL SPRING ASSEMBLER #### [facility] [address] [place] [address] Dr. rEasmo Smith Sodium [Moles/Vol] 138 mmol/L Normal 136-145 [facility] Comment on above: Performed By: #### B COIL SPRING ASSEMBLER #### [facility] [address] [place] [address] [address] Erasmo Smith Urea nitrogen [Mass/Vol] 24.0 mg/dL Critically high 7.0-18.0 [facility] Comment on above: Performed By: #### B COIL SPRING ASSEMBLER #### [facility] [address] [place] [address] [address] Erasmo Smith Urea nitrogen/Creatinine [Mass ratio] 43.6 mg/mg Normal [facility] Comment on above: Performed By: #### B COIL SPRING ASSEMBLER #### [facility] [address] [place] [address] Dr. Erasmo Smith PROTIMEon 12-03-2022 INR Coag (PPP) [Relative time] 4.41 {INR} Critically high [facility] Comment on above: Performed By: #### C MREP #### [facility] [address] [place] [address] Dr. Erasmo Smith INR GUIDELINES SEE BELOW Normal [facility] Comment on above: Result Comment: ABNER RED INR: 2.0 - 3.0 CONDITIONS NOT LISTED BELOW 2.5 - 3.5 FOR PROSTHETIC HEART VALVE REPLACEMENT 2.5 - 3.5 RECURRENT THROMBOSIS Performed By: #### C MREP #### [facility] [address] [place] [address] Dr. Erasmo Smith PT Coag (PPP) [Time] 43.0 s Critically high 9.0-11.6 [facility] Comment on above: Performed By: #### C MREP #### [facility] [address] [place] [address] Dr. Erasmo Smith BLOOD CULTURE ID PANELon A. baumannii Not detected Normal NOT DETECTED [facility] Comment on above: Performed By: #### B CID2 ####[facility] [address]autyzweh[address] [place] [address]Dr. Erasmo Smith Bacteriodes fragilis Not detected Normal NOT DETECTED [facility] Comment on above: Performed By: #### B CID2 ####[facility] Vexkmyigvs8661 [place] [phone]. Yilan Smith BCID CONTROLS PASSED Normal [facility] Comment on above: Performed By: #### B CID2 ####[facility] Dvbmgeaxif4576 [place] [phone]. Yiean Smith BCIDBTHD BLOOD CULTURE BOTTLE INFORMATION [facility] Comment on above: Performed By: #### B CID2 ####[facility] Bzjzcwiihz8007 [place] [phone]. Yiean Smith BCIDHD1 ANTIMICROBIAL RESISTANCE GENES [facility] Comment on above: Performed By: #### B CID2 ####[facility] Cqgqncywlp70[address] [place] [address]Dr. Yiean Smith BCIDHD2 SEE BELOW [facility] Comment on above: Result Comment: Note : Antimicrobial resitance can occur via multiple mechanisms. A Not Detected result for the [employer] antomicrobial resistance gene assays does not indicate antimicrobial susceptibility. Subculturing is required for species identification and susceptibility testing of isolates. Performed By: #### B CID2 ####[facility] Ogvhzwdalq0574 [place] [phone]. Yiean Smith BCIDHD3 Positive [facility] Comment on above: Performed By: #### B CID2 ####[facility] Lipnwhbbai4284 [place] [phone]. Yiean Smith BCIDHD4 Negative [facility] Comment on above: Performed By: #### B CID2 ####[facility] Xvkwdzzkbi7601 [place] [phone]. Yiean Smith BCIDHD5 YEAST Normal [facility] Comment on above: Performed By: #### B CID2 ####[facility] Yrcaajvaam2481 [place] [phone]. Yilan Smith Bottle Set: Set 1 [place] [facility] Comment on above: Performed By: #### B CID2 ####[facility] Wdpzdunihe79[address] [place] [address]Dr. Yilan Smith Bottle: Anaerobic Normal [facility] Comment on above: Performed By: #### B CID2 ####[facility] Qhyroyylnk0616 [place] [phone]. Yilan Smith C. neoformans/gattii Not detected Normal NOT DETECTED [facility] Comment on above: Performed By: #### B CID2 ####[facility] Vpjgaqonvi69[address] [place] [address]Dr. Yilan Smith Naye albicans Not detected Normal NOT DETECTED [facility] Comment on above: Performed By: #### B CID2 ####[facility] Wwzkngauuw0706 [place] [address]Dr. Yilan Simth Naye auris Not detected Normal NOT DETECTED [facility] Comment on above: Performed By: #### B CID2 ####[facility] [address] [place], [place] [address]Dr. Yilan Smith Naye glabrata Not detected Normal NOT DETECTED [facility] Comment on above: Performed By: #### B CID2 ####[facility] Pl[address]uq[address] [place], [place] [address]Dr. Yilan Smith Naye Krusei Not detected Normal NOT DETECTED [facility] Comment on above: Performed By: #### B CID2 ####[facility] I[address]xviulol[address] [place], [place] [address]Dr. Yilan Smith Naye Parapsilosis Not detected Normal NOT DETECTED [facility] Comment on above: Performed By: #### B CID2 ####[facility] [address]dtvt[address] [place], [place] [address]Dr. Yilan Smith Naye Tropicalis Not detected Normal NOT DETECTED [facility] Comment on above: Performed By: #### B CID2 ####[facility] Scvihyyzln5801 [place] [address]Dr. Yiean Smith CTX-M Resistant Gene Not Applicable Normal NOT DETECTE D [facility] Comment on above: Performed By: #### B CID2 ####[facility] Tdpllihkgp9574 [place] [address]Dr. Yilan Smith E. Cloacae complex Not detected Normal NOT DETECTED [facility] Comment on above: Performed By: #### B CID2 ####[facility] [address]soron[address] [place], [place] [address]Dr. Erasmo Smith E. faecalis Not detected Normal NOT DETECTED [facility] Comment on above: Performed By: #### B CID2 ####[facility] Fr[address]fdyhbt[address] [place], [place] [address]Dr. Erasmo Smith E. faecium Not detected Normal NOT DETECTED [facility] Comment on above: Performed By: #### B CID2 ####[facility] Ifxnjtowwr[address] [place], [place] [address]Dr. Erasmo Smith Enterobacteriaceae Detected Critically abnormal NOT DETECTED [facility] Comment on above: Performed By: #### B CID2 ####[facility] E[address]hpgvalb[address] [place], [place] [address]Dr. Erasmo Smith Escherichia coli Detected Critically abnormal NOT DETECTED [facility] Comment on above: Performed By: #### B CID2 ####[facility] V[address]desxekj[address] [place], [place] [address]Dr. Erasmo Smith H. influenzae Not detected Normal NOT DETECTED [facility] Comment on above: Performed By: #### B CID2 ####[facility] Arfxggcqcn[address] [place], [place] [address]Dr. Erasmo Smith IMP Resistant Gene Not Applicable Normal NOT DETECTED [facility] Comment on above: Performed By: #### B CID2 ####[facility] [address]sufbefr[address] [place], [place] [address]Dr. Erasmo Smith K. oxytoca Not detected Normal NOT DETECTED [facility] Comment on above: Performed By: #### B CID2 ####[facility] Xsqcbmrnvi[address] [place], [place] [address]Dr. Erasmo Smith K. pneumoniae Not detected Normal NOT DETECTED [facility] Comment on above: Performed By: #### B CID2 ####[facility] [address]si[address] [place], [place] [address]Dr. Erasmo Smith Klebsiella aerogenes Not detected Normal NOT DETECTED [facility] Comment on above: Performed By: #### B CID2 ####[facility] I[address]vzmezhv[address] [place], [place] [address]Dr. Erasmo Smith KPC Resistant Gene Not detected Normal NOT DETECTED [facility] Comment on above: Performed By: #### B CID2 ####[facility] Kgexwnekkh8385 [place] [address]Dr. Erasmo Smith List. monocytogenes Not detected Normal NOT DETECTED [facility] Comment on above: Performed By: #### B CID2 ####[facility] [address]graswv[address] [place], [place] [address]Dr. Erasmo Smith Mcr-1 Resistant Gene Not Applicable Normal NOT DETECTE D [facility] Comment on above: Performed By: #### B CID2 ####[facility] [address]rwszp[address] [place], [place] [address]Dr. Erasmo Smith mecA/C Not Applicable Normal NOT DETECTED [facility] Comment on above: Performed By: #### B CID2 ####[facility] Vcbkinppzo[address] [place], [place] [address]Dr. Erasmo Smith mecA/C MREJ Not Applicable Normal NOT DETECTED [facility] Comment on above: Performed By: #### B CID2 ####[facility] T[address]lrlepetk[address] [place], [place] [address]Dr. Erasmo Smith N. meningitidis Not detected Normal NOT DETECTED [facility] Comment on above: Performed By: #### B CID2 ####[facility] Gnfoldebip[address] [place], [place] [address]Dr. Erasmo Smith NDM Resistant Gene Not Applicable Normal NOT DETECTED [facility] Comment on above: Performed By: #### B CID2 ####[facility] [address]ufssuy[address] [place], [place] [address]Dr. Erasmo Smith Oxa-48-like Not Applicable Normal NOT DETECTED [facility] Comment on above: Performed By: #### B CID2 ####[facility] [address]adeqwy[address] [place], [place] [address]Dr. Erasmo Smith Proteus Not detected Normal NOT DETECTED [facility] Comment on above: Performed By: #### B CID2 ####[facility] [address]cs[address] [place], [place] [address]Dr. Erasmo Smith Pseud. aeruginosa Not detected Normal NOT DETECTED [facility] Comment on above: Performed By: #### B CID2 ####[facility] [address] [place] [address]Dr. Erasmo Smith S. maltophilia Not detected Normal NOT DETECTED [facility] Comment on above: Performed By: #### B CID2 ####[facility] [address]knozypwj[address] [place] [address]Dr. Heavenean Smith Salmonella Not detected Normal NOT DETECTED [facility] Comment on above: Performed By: #### B CID2 ####[facility] [address] [place], [place] [address]Dr. Heavenean Smith Seratia marcescens Not detected Normal NOT DETECTED [facility] Comment on above: Performed By: #### B CID2 ####[facility] [address] [place], [place] [address]Dr. Erasmo Smith Site: l ac Normal [facility] Comment on above: Performed By: #### B CID2 ####[facility] [address]myrtkins[address] [place], [place] [address]Dr. Erasmo Luis Staph. aureus Not detected Normal NOT DETECTED [facility] Comment on above: Performed By: #### B CID2 ####[facility] [address]lnb[address]ju[address] [place], [place] [address]Dr. Erasmo Smith Staph. epidermidis Not detected Normal NOT DETECTED [facility] Comment on above: Performed By: #### B CID2 ####[facility] Rxjuxtfadb[address] [place], [place] [address]Dr. Erasmo Luis Staph. lugdunensis Not detected Normal NOT DETECTED [facility] Comment on above: Performed By: #### B CID2 ####[facility] [address] [place], [place] [address]Dr. Erasmo Smith Staphylococcus Not detected Normal NOT DETECTED [facility] Comment on above: Performed By: #### B CID2 ####[facility] [address]awgqmpim[address] [place], [place] [address]Dr. Heavenean Smith Strep. agalactiae Not detected Normal NOT DETECTED [facility] Comment on above: Performed By: #### B CID2 ####[facility] [address]kvmdun[address] [place] [address]Dr. Erasmo Smith Strep. pneumoniae Not detected Normal NOT DETECTED [facility] Comment on above: Performed By: #### B CID2 ####[facility] Wrfutvhvvs[address] [place] [address]Dr. Erasmo Smith Strep. pyogenes Not detected Normal NOT DETECTED [facility] Comment on above: Performed By: #### B CID2 ####[facility] Rptidttsil[address] [place], [place] [address]Dr. Erasmo Smith Streptococcus Not detected Normal NOT DETECTED [facility] Comment on above: Performed By: #### B CID2 ####[facility] Ritiybtneo[address] [place], [place] [address]Dr. Erasmo Smith Fran/B Resist. Gene Not detected Normal NOT DETECTED [facility] Comment on above: Performed By: #### B CID2 ####[facility] F[address] [place], [place] [address]Dr. Erasmo Smith VIM Resistant Gene Not Applicable Normal NOT DETECTED [facility] Comment on above: Performed By: #### B CID2 ####[facility] Bfluhuuamt[address] [place], [place] [address]Dr. Erasmo Smith BNPon 12-02-2022 Natriuretic peptide B (Bld) [Mass/Vol] 1059.0 pg/mL Normal <=1,800.0 [facility] Comment on above: Performed By: #### B COIL SPRING ASSEMBLER #### [facility] [address] [address] [address] Erasmo Smith CBC AUTO DIFFon 12-02-2022 BASO # 0.0 103/ul Normal 0.0-0.1 [facility] Comment on above: Performed By: #### C BC ####[facility] [address]yq[address] [place], [place] [address]Dr. Erasmo Smith Basophils/100 WBC (Bld) 0.2 % Normal 0.2-2.0 [facility] Comment on above: Performed By: #### C BC ####[facility] [address]isp[address] [place] [address]Dr. Erasmo Smith EO # 0.0 103/ul Normal 0.0-0.7 [facility] Comment on above: Performed By: #### C BC ####[facility] Rbicnkwsdu[address] [place], [place] [address]Dr. Erasmo Smith Eosinophils/100 WBC (Bld) 0.0 % Critically low 0.9-7.0 [facility] Comment on above: Performed By: #### C BC ####[facility] S[address]prrwa[address] [place], [place] [address]Dr. Erasmo Smith Erythrocyte distribution width (RBC) [Ratio] 17.3 % Critically high 11.0-15.0 [facility] Comment on above: Performed By: #### C BC ####[facility] [address]co[address] [place], [place] [address]Dr. Erasmo Smith Hematocrit (Bld) [Volume fraction] 31.4 % Critically low 36.0-48.0 [facility] Comment on above: Performed By: #### C BC ####[facility] [address] [place], [place] [address]Dr. Erasmo Smith Hemoglobin (Bld) [Mass/Vol] 10.0 g/dL Critically low 12.0-16.0 [facility] Comment on above: Performed By: #### C BC ####[facility] C[address]uny[address] [place], [place] [address]Dr. Erasmo Smith IG # 0.06 10e3/ul Critically high 0.00-0.03 [facility] Comment on above: Performed By: #### C BC ####[facility] D[address]efllwur[address] [place], [place] [address]Dr. Erasmo Smith IG % 0.4 % Normal 0.0-0.5 [facility] Comment on above: Performed By: #### C BC ####[facility] [address]fe[address] [place], [place] [address]Dr. Heavenean Smith LYMPH # 1.3 103/ul Normal 1.2-3.8 [facility] Comment on above: Performed By: #### C BC ####[facility] [address] [place] [id number]. Erasmo Luis Lymphocytes/100 WBC (Bld) 8.1 % Critically low 20.5-60.0 [facility] Comment on above: Performed By: #### C BC ####[facility] [address] [place] [id number]. Erasmo Luis MANUAL DIFF REQ NO Normal [facility] Comment on above: Performed By: #### C BC ####[facility] [address] [place] [id number]. Erasmo Luis MCH (RBC) [Entitic mass] 25.6 pg Critically low 26.7-34.0 [facility] Comment on above: Performed By: #### C BC ####[facility] [address] [place] [address]Dr. Erasmo Luis MCHC (RBC) [Mass/Vol] 31.8 g/dL Normal 29.9-35.2 [facility] Comment on above: Performed By: #### C BC ####[facility] [address]qc[address] [place] [address]Dr. Heavenean Smith MCV (RBC) [Entitic vol] 80.3 fL Critically low 81.0-99.0 [facility] Comment on above: Performed By: #### C BC ####[facility] [address]agiiz[address] [place] [address]Dr. Erasmo Smith MONO # 0.6 103/ul Normal 0.3-0.8 [facility] Comment on above: Performed By: #### C BC ####[facility] [address]yiwq4[address] [place] [address]Dr. Heavenean Smith Monocytes/100 WBC (Bld) 3.7 % Normal 1.7-12.0 [facility] Comment on above: Performed By: #### C BC ####[facility] Monrvudots[address] [place] [address]Dr. Erasmo Smith NEUT # 14.5 103/ul Critically high 1.4-6.5 [facility] Comment on above: Performed By: #### C BC ####[facility] [address] [place], [place] [address]Ul. Erasmo Smith Neutrophils/100 WBC (Bld) 87.6 % Critically high 43.0-75.0 [facility] Comment on above: Performed By: #### C BC ####[facility] [address] [place], [place] [address]Gr. Erasmo Smith Platelet mean volume (Bld) [Entitic vol] 10.0 fL Normal 9.5-13.5 [facility] Comment on above: Performed By: #### C BC ####[facility] [address] [place], [place] [address]Rk. Erasmo Smith PLT 206 103/ul Normal 150-450 [facility] Comment on above: Performed By: #### C BC ####[facility] [address] [place], [place] [address]Xs. Erasmo Smith RBC 3.91 106/ul Critically low 4.20-5.40 [facility] Comment on above: Performed By: #### C BC ####[facility] Esqruucptu[address] [place], [place] [address]Ne. Erasmo Smith WBC 16.5 103/ul Critically high 4.0-11.0 [facility] Comment on above: Performed By: #### C BC ####[facility] [address] [place], [place] [address]Pv. Erasmo Smith ECHOCARDIO M/2D COMPLETEon 0 12-02-2022 ECHOCARDIO M/2D COMPLETE Patient: BREANN STARKS Exam Date: 12/02/2022 : 1945 Gender:F Ordering : KAYLEY HOLMAN . Admission #: [id number] Family : DR LUISANA JOHNSON . Order #: [id number] CLICK HERE TO VIEW EXAM ECHOCARDIOGRAM REPORT [...] M.D. on 12/02/2022 at 21:58 Normal [facility] MAGNESIUMon 12-02-2022 Magnesium [Mass/Vol] 2.0 mg/dL Normal 1.8-2.4 [facility] Comment on above: Performed By: #### B [employer]ING ASSEMBLER #### [facility] [address] [place] [address] Dr. Erasmo Smith PROF 14(COMP METB)on 023 Albumin [Mass/Vol] 2.7 g/dL Critically low 3.4-5.0 [facility] Comment on above: Performed By: #### B [employer]IL SPRING ASSEMBLER #### [facility] [address] [place] [address] Dr. Erasmo Smith Albumin/Globulin [Mass ratio] 0.6 {ratio} Normal [facility] Comment on above: Performed By: #### B COIL SPRING ASSEMBLER #### [facility] [address] [place] [address] Dr. Erasmo Smith ALP [Catalytic activity/Vol] 128 U/L Critically high 46-116 [facility] Comment on above: Performed By: #### B COIL SPRING ASSEMBLER #### [facility] [address] [place] [address] Dr. Erasmo Smith ALT [Catalytic activity/Vol] 34 U/L Normal 14-59 [facility] Comment on above: Performed By: #### B COIL SPRING ASSEMBLER #### [facility] [address] [place] [address] Dr. Erasmo Smith Anion gap [Moles/Vol] 10.6 mmol/L Normal [facility] Comment on above: Performed By: #### B [employer]IL SPRING ASSEMBLER #### [facility] [address] [place] [address] Dr. Erasmo Smith AST [Catalytic activity/Vol] 27 U/L Normal 15-37 [facility] Comment on above: Performed By: #### B COIL SPRING ASSEMBLER #### [facility] [address] [place] [address] Dr. Erasmo Smith Bilirubin [Mass/Vol] 0.5 mg/dL Normal 0.2-1.0 [facility] Comment on above: Performed By: #### B [employer]IL SPRING ASSEMBLER #### [facility] [address] [place] [address] Dr. Erasmo Smith Calcium [Mass/Vol] 8.4 mg/dL Critically low 8.5-10.1 [facility] Comment on above: Performed By: #### B COIL SPRING ASSEMBLER #### [facility] [address] [place] [address] Dr. Erasmo Smith Chloride [Moles/Vol] 104 mmol/L Normal 98-107 [facility] Comment on above: Performed By: #### B COIL SPRING ASSEMBLER #### [facility] [address] [place] [address] Dr. Erasmo Smith CO2 [Moles/Vol] 26.2 mmol/L Normal 21.0-32.0 [facility] Comment on above: Performed By: #### B COIL SPRING ASSEMBLER #### [facility] [address] [place] [address] Dr. Erasmo Smith Creatinine [Mass/Vol] 0.52 mg/dL Critically low 0.55-1.02 [facility] Comment on above: Performed By: #### B COIL SPRING ASSEMBLER #### [facility] [address] [place] [address] Dr. Erasmo Smith EGFR-AF NAURUAN >60 Normal >=60 [facility] Comment on above: Performed By: #### B COIL SPRING ASSEMBLER #### [facility] [address] [place] [address] Dr. Erasmo Smith EGFR-NON AF NAURUAN >60 Normal >=60 [facility] Comment on above: Performed By: #### B COIL SPRING ASSEMBLER #### [facility] [address] [place] [address] Dr. Erasmo Smith Globulin (S) [Mass/Vol] 4.3 g/dL Normal [facility] Comment on above: Performed By: #### B COIL SPRING ASSEMBLER #### [facility] [address] [place] [address] [address] Erasmo Smith Glucose [Mass/Vol] 135 mg/dL Critically high 74-106 [facility] Comment on above: Performed By: #### B COIL SPRING ASSEMBLER #### [facility] [address] [place] [address] [address] Erasmo Smith Potassium [Moles/Vol] 3.8 mmol/L Normal 3.5-5.1 [facility] Comment on above: Performed By: #### B COIL SPRING ASSEMBLER #### [facility] [address] [place] [address] [address] Erasmo Smith Protein [Mass/Vol] 7.0 g/dL Normal 6.4-8.2 [facility] Comment on above: Performed By: #### B COIL SPRING ASSEMBLER #### [facility] [address] [address] [address] Erasmo Smith Sodium [Moles/Vol] 137 mmol/L Normal 136-145 [facility] Comment on above: Performed By: #### B COIL SPRING ASSEMBLER #### [facility] [address] [address] [address] Erasmo Smith Urea nitrogen [Mass/Vol] 16.0 mg/dL Normal 7.0-18.0 [facility] Comment on above: Performed By: #### B COIL SPRING ASSEMBLER #### [facility] [address] [address] [address] Erasmo Smith Urea nitrogen/Creatinine [Mass ratio] 30.8 mg/mg Normal [facility] Comment on above: Performed By: #### B COIL SPRING ASSEMBLER #### [facility] [address] [address] [address] Erasmo Smith PROTIMEon 12-02-2022 INR Coag (PPP) [Relative time] 4.39 {INR} Critically high [facility] Comment on above: Performed By: #### P T #### [facility] [address] [address] [address] Erasmo Smith INR GUIDELINES SEE BELOW Normal [facility] Comment on above: Result Comment: ABNER RED INR: 2.0 - 3.0 CONDITIONS NOT LISTED BELOW 2.5 - 3.5 FOR PROSTHETIC HEART VALVE REPLACEMENT 2.5 - 3.5 RECURRENT THROMBOSIS Performed By: #### P T #### [facility] [address] [address] [address] Erasmo Smith PT Coag (PPP) [Time] 42.8 s Critically high 9.0-11.6 [facility] Comment on above: Performed By: #### P T #### [facility] [address] [address] [address] Erasmo Smith UA RANDOM W/MICROSCOPICon BACTERIA NONE SEEN Normal NONE SEEN [facility] Comment on above: Performed By: #### U AMIC ####[facility] [address] [place] [address]Dr. Erasmo Smith Bilirubin Ql (U) Negative Normal NEGATIVE [facility] Comment on above: Performed By: #### U AMIC ####[facility] [address] [place] [address]Dr. Erasmo Smith CAST NONE SEEN Normal NONE SEEN [facility] Comment on above: Performed By: #### U AMIC ####[facility] [address] [place] [address]Dr. Erasmo Smith Clarity (U) CLEAR Normal CLEAR [facility] Comment on above: Performed By: #### U AMIC ####[facility] [address] [place] [address]Dr. Erasmo Smith Color (U) YELLOW Normal YELLOW [facility] Comment on above: Performed By: #### U AMIC ####[facility] [address]lydasngfu[address] [place] [address]Dr. Erasmo Smith Crystals LM Nom (Urine sed) NONE SEEN Normal NONE SEEN [facility] Comment on above: Performed By: #### U AMIC ####[facility] [address]szl[address] [place] [address]Dr. Erasmo Smith Epithelial cells LM Ql (Urine sed) RARE Normal NONE SEEN /RARE [facility] Comment on above: Performed By: #### U AMIC ####[facility] [address] [place] [address]Dr. Erasmo Smith Glucose Ql (U) Negative Normal NEGATIVE [facility] Comment on above: Performed By: #### U AMIC ####[facility] [address]cor[address] [place] [address]Dr. Erasmo Smith Hemoglobin Ql (U) SMALL Abnormal NEGATIVE [facility] Comment on above: Performed By: #### U AMIC ####[facility] [address] [place] [address]Dr. Erasmo Smith Ketones Ql (U) 15 mg/dl Abnormal NEGATIVE [facility] Comment on above: Performed By: #### U AMIC ####[facility] [address] [place], [place] [address]Dr. Erasmo Smith LEUKOCYTES Negative Normal NEGATIVE [facility] Comment on above: Performed By: #### U AMIC ####[facility] [address] [place], [place] [address]Dr. Erasmo Luis MUCOUS NONE SEEN Normal NONE SEEN [facility] Comment on above: Performed By: #### U AMIC ####[facility] [address] [place], [place] [address]Dr. Heavenean Smith Nitrite Ql (U) Negative Normal NEGATIVE [facility] Comment on above: Performed By: #### U AMIC ####[facility] [address]xs[address] [place], [place] [address]Dr. Erasmo Smith pH (U) 6.0 [pH] Normal 5-9 [facility] Comment on above: Performed By: #### U AMIC ####[facility] [address] [place] [address]Dr. Erasmo Smith RBC 0-2 Normal 0-2 [facility] Comment on above: Performed By: #### U AMIC ####[facility] [address] [place] [address]Dr. Erasmo Smith SPEC GRAVITY 1.025 Normal 1.005-<=1.02 5 [facility] Comment on above: Performed By: #### U AMIC ####[facility] [address] [place] [id number]. Erasmo Smith UA PROTEIN TRACE Normal NEGATIVE/ TRACE [facility] Comment on above: Performed By: #### U AMIC ####[facility] [address]we[address] [place] [phone]. Erasmo Smith Urobilinogen Qn (U) 4 {Shraddha'U}/dL Abnormal 0.2 - 1.0 [facility] Comment on above: Performed By: #### U AMIC ####[facility] [address] [place] [phone]. Erasmo Smith WBC 0-2 Abnormal NONE SEEN [facility] Comment on above: Performed By: #### U AMIC ####[facility] Ts[address]swrh[address] [place] [phone]. Erasmo Smith CARDIAC ROSA ELENA 3-6on 3 CK [Catalytic activity/Vol] 53 U/L Normal 26-192 [facility] Comment on above: Performed By: #### C MREP #### [facility] [address] [address] [address] Erasmo Smith CK.MB [Mass/Vol] 0.90 ng/mL Normal <=3.60 [facility] Comment on above: Performed By: #### C MREP #### [facility] [address] [address] [address] Erasmo Smith HSTROP 116.7 pg/mL Critically high 4.0-51.3 [facility] Comment on above: Result Comment: CUT- OFF POINTS HAVE BEEN ESTABLISHED BASED ON THE FOURTH UNIVERSAL DEFINITIONS OF MYOCARDIAL INFARCTION. THE UPPER REFERENCE LIMIT (URL) OF TROPONIN, DEFINED THE 99TH PERCENTILE OF cTnI DISTRIBUTION IN A REFERENCE POPULATION, HAS BEEN CONFIRMED THE DECISION THRESHOLD FOR [place] DIAGNOSIS. Performed By: #### C MREP #### [facility] [address] [address] [address] Erasmo Smith CK [Catalytic activity/Vol] 47 U/L Normal 26-192 [facility] Comment on above: Performed By: #### B COIL SPRING ASSEMBLER #### [facility] [address] [address] [address] Erasmo Smith CK.MB [Mass/Vol] 1.00 ng/mL Normal <=3.60 [facility] Comment on above: Performed By: #### B COIL SPRING ASSEMBLER #### [facility] [address] [place] [address] Dr. Erasmo Smith HSTROP 154.3 pg/mL Critically high 4.0-51.3 [facility] Comment on above: Result Comment: CUT- OFF POINTS HAVE BEEN ESTABLISHED BASED ON THE FOURTH UNIVERSAL DEFINITIONS OF MYOCARDIAL INFARCTION. THE UPPER REFERENCE LIMIT (URL) OF TROPONIN, DEFINED THE 99TH PERCENTILE OF cTnI DISTRIBUTION IN A REFERENCE POPULATION, HAS BEEN CONFIRMED THE DECISION THRESHOLD FOR [place] DIAGNOSIS. Performed By: #### B COIL SPRING ASSEMBLER #### [facility] [address] [place] [address] Dr. Erasmo Smith CBC W MANUAL DIFFon 12-02-19 23 ATYPICAL LYMPH # Normal [facility] Comment on above: Performed By: #### C ALHAJIMAN #### [facility] [address] [place] [address] Dr. Erasmo Smith ATYPICAL LYMPH % Normal [facility] Comment on above: Performed By: #### C BCMAN #### [facility] [address] [place] [address] Dr. Erasmo Smith BAND # 0.6 103/ul Critically high 0.0-0.3 [facility] Comment on above: Performed By: #### C BCMAN #### [facility] [address] [place] [address] Dr. Erasmo Smith BAND % 3 % Normal 0-5 [facility] Comment on above: Performed By: #### C BCMAN #### [facility] [address] [place] [address] Dr. Erasmo Smith BASOM # 0.00 103/ul Normal 0.00-0.10 [facility] Comment on above: Performed By: #### C BCMAN #### [facility] [address] [place] [address] Dr. Erasmo Smith BASOM % 0.0 % Critically low 0.2-2.0 [facility] Comment on above: Performed By: #### C BCMAN #### [facility] [address] [address] [address] Erasmo Smith BLAST # Normal [facility] Comment on above: Performed By: #### C BCMAN #### [facility] [address] [place] [address] Dr. Erasmo Smith BLAST % Normal [facility] Comment on above: Performed By: #### C BCMAN #### [facility] [address] [address] [address] Erasmo Smith CORRECTED WBC Normal 4.0-11.0 [facility] Comment on above: Performed By: #### C BCBLAISE #### [facility] [address] [place] [address] Dr. Erasmo Smith EOS # 0.19 103/ul Normal 0.00-0.70 [facility] Comment on above: Performed By: #### C BCBLAISE #### [facility] [address] [place] [address] Dr. Erasmo Smith EOS% 1.0 % Normal 0.9-7.0 [facility] Comment on above: Performed By: #### C BCBLAISE #### [facility] [address] [place] [address] Dr. Erasmo Smith HCT 32.7 % Critically low 36.0-48.0 [facility] Comment on above: Performed By: #### C BCBLAISE #### [facility] [address] [place] [address] Dr. Erasmo Smith HGB 10.5 g/dl Critically low 12.0-16.0 [facility] Comment on above: Performed By: #### C BCMAN #### [facility] [address] [place] [address] Dr. Erasmo Smith LYMPHM # 0.76 103/ul Critically low 1.20-3.80 [facility] Comment on above: Performed By: #### C BCMAN #### [facility] [address] [place] [address] Dr. Erasmo Smith LYMPHM% 4.0 % Critically low 20.5-60.0 [facility] Comment on above: Performed By: #### C ANGELA #### [facility] [address] [address] [address] Erasmo Smith MCH 25.9 pg Critically low 26.7-34.0 [facility] Comment on above: Performed By: #### C ANGELA #### [facility] [address] [place] [address] Dr. Erasmo Smith MCHC 32.1 g/dl Normal 29.9-35.2 [facility] Comment on above: Performed By: #### C ANGELA #### [facility] [address] [place] [address] Dr. Erasmo Smith MCV 80.5 fL Critically low 81.0-99.0 [facility] Comment on above: Performed By: #### C ANGELA #### [facility] [address] [place] [address] Dr. Erasmo Smith METAMYELOCYTE # Normal [facility] Comment on above: Performed By: #### C ANGELA #### [facility] [address] [place] [address] Dr. Erasmo Smith METAMYELOCYTE % Normal [facility] Comment on above: Performed By: #### C ANGELA #### [facility] [address] [place] [address] Dr. Erasmo Smith MONOM# 1.14 103/ul Critically high 0.30-0.80 [facility] Comment on above: Performed By: #### C ANGELA #### [facility] [address] [place] [address] Dr. Erasmo Smith MONOM% 6.0 % Normal 1.7-12.0 [facility] Comment on above: Performed By: #### C ANGELA #### [facility] [address] [place] [address] Dr. Erasmo Smith MPV 9.4 fL Critically low 9.5-13.5 [facility] Comment on above: Performed By: #### C ANGELA #### [facility] [address] [place] [address] Dr. Erasmo Smith MYELOCYTE # Normal [facility] Comment on above: Performed By: #### C BCBLAISE #### [facility] [id number] Erasmo Smith MYELOCYTE % Normal [facility] Comment on above: Performed By: #### C ANGELA #### [facility] [id number] Erasmo Smith NRBC Normal [facility] Comment on above: Performed By: #### C ANGELA #### [facility] [address] [address] [address] Erasmo Smith PLT 195 103/ul Normal 150-450 [facility] Comment on above: Performed By: #### C ANGELA #### [facility] [address] [address] [address] Erasmo Smith RBC 4.06 106/ul Critically low 4.20-5.40 [facility] Comment on above: Performed By: #### C ANGELA #### [facility] [address] [place] [address] Dr. Erasmo Smith RDW 17.7 % Critically high 11.0-15.0 [facility] Comment on above: Performed By: #### C ANGELA #### [facility] [address] [place] [address] Dr. Erasmo Smith SEG # 16.34 103/ul Critically high 1.40-6.50 [facility] Comment on above: Performed By: #### C ANGELA #### [facility] [id number] Erasmo Smith SEG % 86.0 % Critically high 43.0-75.0 [facility] Comment on above: Performed By: #### C ANGELA #### [facility] [id number] Erasmo Smith WBC 19.0 103/ul Critically high 4.0-11.0 [facility] Comment on above: Performed By: #### C ANGELA #### [facility] [address] HEAD WO CONon [...] SALOME MCCORMICK Date: 2022 14:50 Normal [facility] CULTURE BLOODon 2022 Microscopic examination of blood, culture Culture Observations: Aerobic and Anaerobic bottle positive. BCID: E. Coli Culture Observations: Refer to for VIOLET. Isolate 1 Escherichia coli Growth of Normal [facility] Comment on above: Performed By: #### B LDCX2 ####[facility] [address] [address]Dr. Erasmo Smith Covid-19 PCR (CVDTB)on 11-11 SARS-CoV-2 (COVID-19) RNA EMILY+probe Ql (Unsp spec) Not detected Normal NOT DETECTED [facility] [...] for this test is supported by the Satellite Tv Technician Installer of Health and Human Service's declaration that [...] used). Performed By: #### C MREP #### [facility] [address] [place], [place] [address] Dr. Erasmo Smith LACTATE/LACTIC ACIDon 2022 Lactate [Moles/Vol] 1.2 mmol/L Normal 0.4-2.0 [facility] Comment on above: Performed By: #### L ACT ####[facility] [address] [id number] Smith PH VENOUS BLOODon 2022 PCO2 VENOUS 37.8 mmHg Critically low 40.0-52.0 [facility] Comment on above: Performed By: #### P HVEN ####[facility] [address] [id number] Smith pH VENOUS 7.417 Normal 7.330-7.430 [facility] Comment on above: Performed By: #### P HVEN ####[facility] [address] [address]Dr. Erasmo Smith PROF 14(COMP METB)on 023 Albumin [Mass/Vol] 3.1 g/dL Critically low 3.4-5.0 [facility] Comment on above: Performed By: #### H ALEXSANDER, CMP ####[facility] [address] [address]DrMeena Smith Albumin/Globulin [Mass ratio] 0.8 {ratio} Normal [facility] Comment on above: Performed By: #### H ALEXSANDER, CMP ####[facility] [address] [address]DrMeena Smith ALP [Catalytic activity/Vol] 194 U/L Critically high 46-116 [facility] Comment on above: Performed By: #### H ALEXSANDER, CMP ####[facility] [address] [id number] Smith ALT [Catalytic activity/Vol] 37 U/L Normal 14-59 [facility] Comment on above: Performed By: #### H STROPN, CMP ####[facility] [address] [id number]. Erasmo Smith Anion gap [Moles/Vol] 14.6 mmol/L Normal [facility] Comment on above: Performed By: #### H STROPN, CMP ####[facility] [address] [address]Dr. Erasmo Smith AST [Catalytic activity/Vol] 32 U/L Normal 15-37 [facility] Comment on above: Performed By: #### H STROPN, CMP ####[facility] [address] [address]Dr. Erasmo Smith Bilirubin [Mass/Vol] 1.0 mg/dL Normal 0.2-1.0 [facility] Comment on above: Performed By: #### H STROPN, CMP ####[facility] [address] [place], [place] [address]Dr. Erasmo Smith Calcium [Mass/Vol] 8.9 mg/dL Normal 8.5-10.1 [facility] Comment on above: Performed By: #### H STROLYNDA, CMP ####[facility] [address] [place], [place] [address]Dr. Erasmo Smith Chloride [Moles/Vol] 103 mmol/L Normal 98-107 [facility] Comment on above: Performed By: #### H STROPN, CMP ####[facility] [address] [place], [place] [address]Dr. Erasmo Smith CO2 [Moles/Vol] 23.6 mmol/L Normal 21.0-32.0 [facility] Comment on above: Performed By: #### H STROPN, CMP ####[facility] [address] [place], [place] [address]Dr. Erasmo Smith Creatinine [Mass/Vol] 0.69 mg/dL Normal 0.55-1.02 [facility] Comment on above: Performed By: #### H STROPN, CMP ####[facility] [address] [place], [place] [address]Dr. Erasmo Smith EGFR-AF NAURUAN >60 Normal >=60 [facility] Comment on above: Performed By: #### H STROPN, CMP ####[facility] [address] [address]Dr. Erasmo Smith EGFR-NON AF NAURUAN >60 Normal >=60 [facility] Comment on above: Performed By: #### H STROPN, CMP ####[facility] [address] [address]Dr. Erasmo Smith Globulin (S) [Mass/Vol] 4.1 g/dL Normal [facility] Comment on above: Performed By: #### H STROPN, CMP ####[facility] [address] [address]Dr. Erasmo Smith Glucose [Mass/Vol] 121 mg/dL Critically high 74-106 [facility] Comment on above: Performed By: #### H STROPN, CMP ####[facility] [address] [place], [place] [address]Dr. Erasmo Smith Potassium [Moles/Vol] 3.2 mmol/L Critically low 3.5-5.1 [facility] Comment on above: Performed By: #### H STROPN, CMP ####[facility] [address] [place], [place] [address]Dr. Erasmo Smith Protein [Mass/Vol] 7.2 g/dL Normal 6.4-8.2 [facility] Comment on above: Performed By: #### H STROPN, CMP ####[facility] [address] [place], [place] [address]Dr. Erasmo Smith Sodium [Moles/Vol] 138 mmol/L Normal 136-145 [facility] Comment on above: Performed By: #### H STROPN, CMP ####[facility] [address] [place], [place] [address]Dr. Erasmo Smith Urea nitrogen [Mass/Vol] 17.0 mg/dL Normal 7.0-18.0 [facility] Comment on above: Performed By: #### H STROPN, CMP ####[facility] [address] [place], [place] [address]Dr. Erasmo Smith Urea nitrogen/Creatinine [Mass ratio] 24.6 mg/mg Normal [facility] Comment on above: Performed By: #### H STROPN, CMP ####[facility] [address] [address]Dr. Erasmo Smith PROTIMEon 2022 INR Coag (PPP) [Relative time] 3.58 {INR} Normal [facility] Comment on above: Performed By: #### P T, PTT #### [facility] [address] [address] [address] Erasmo Smith INR GUIDELINES SEE BELOW Normal [facility] Comment on above: Result Comment: ABNER RED INR: 2.0 - 3.0 CONDITIONS NOT LISTED BELOW 2.5 - 3.5 FOR PROSTHETIC HEART VALVE REPLACEMENT 2.5 - 3.5 RECURRENT THROMBOSIS Performed By: #### P T, PTT #### [facility] [address] [place] [address] Dr. Erasmo Smith PT Coag (PPP) [Time] 35.3 s Critically high 9.0-11.6 [facility] Comment on above: Performed By: #### P T, PTT #### [facility] [address] [place] [address] Dr. Erasmo Smith PTTon 2022 aPTT Coag (Bld) [Time] 40.3 s Critically high 22.3-36. 2 [facility] Comment on above: Performed By: #### P T, PTT #### [facility] [address] [place] [address] Dr. Erasmo Smith TROPONIN, HIGH SENSITIVITYon 2022 HSTROP 194.7 pg/mL Critically high 4.0-51.3 [facility] Comment on above: Result Comment: CUT- OFF POINTS HAVE BEEN ESTABLISHED BASED ON THE FOURTH UNIVERSAL DEFINITIONS OF MYOCARDIAL INFARCTION. THE UPPER REFERENCE LIMIT (URL) OF TROPONIN, DEFINED THE 99TH PERCENTILE OF cTnI DISTRIBUTION IN A REFERENCE POPULATION, HAS BEEN CONFIRMED THE DECISION THRESHOLD FOR [place] DIAGNOSIS. Performed By: #### C MREP #### [facility] [address] [place] [address] Dr. Erasmo Smith HSTROP 218.0 pg/mL Critically high 4.0-51.3 [facility] Comment on above: Result Comment: CUT- OFF POINTS HAVE BEEN ESTABLISHED BASED ON THE FOURTH UNIVERSAL DEFINITIONS OF MYOCARDIAL INFARCTION. THE UPPER REFERENCE LIMIT (URL) OF TROPONIN, DEFINED THE 99TH PERCENTILE OF cTnI DISTRIBUTION IN A REFERENCE POPULATION, HAS BEEN CONFIRMED THE DECISION THRESHOLD FOR [place] DIAGNOSIS. Performed By: #### B COIL SPRING ASSEMBLER #### [facility] [address] [address] [address] Erasmo Smith XR CHEST 1 Von 2022 XR CHEST 1 V EXAMINATION: XR CHES T 1 V HISTORY: COUGH COMPARISON: 02/16/2022 TECHNIQUE: [...] HONG ALSTON Date: 2022 14:18 Normal [facility] MAMM SCREEN 3D TOÑITO CADon 11-26-2022 MG MAMM SCREEN 3D TOÑITO CAD Patient: BREANN STARKS Exam Date: 11/26/2022 : 1945 Gender:F Ordering : DR LUISANA JOHNSON . Admission #: [id number] Family : Order #: [id number] CLICK HERE TO VIEW EXAM RADIOLOGY REPORT [...] Treatments None Family Cancers None LOCATION: [facility] BREAST COMPOSITION: Heterogeneously dense,which may [...] Brown M.D. on 11/26/2022 at 14:13 Normal [facility] PROF 14(COMP METB)on 022 Albumin [Mass/Vol] 3.8 g/dL Normal 3.4-5.0 [facility] Comment on above: Performed By: #### C MREP #### [facility] [address] [place] [address] Dr. Erasmo Smith Albumin/Globulin [Mass ratio] 0.8 {ratio} Normal [facility] Comment on above: Performed By: #### C MREP #### [facility] [address] [place] [address] Dr. Erasmo Smith ALP [Catalytic activity/Vol] 102 U/L Normal 46-116 [facility] Comment on above: Performed By: #### C MREP #### [facility] [address] [place] [address] Dr. Erasmo Smith ALT [Catalytic activity/Vol] 47 U/L Normal 14-59 [facility] Comment on above: Performed By: #### C MREP #### [facility] [address] [place] [address] Dr. Erasmo Smith Anion gap [Moles/Vol] 12.5 mmol/L Normal [facility] Comment on above: Performed By: #### C MREP #### [facility] [address] [place] [address] Dr. Erasmo Smith AST [Catalytic activity/Vol] 36 U/L Normal 15-37 [facility] Comment on above: Performed By: #### C MREP #### [facility] [address] [place] [address] Dr. Erasmo Smith Bilirubin [Mass/Vol] 0.3 mg/dL Normal 0.2-1.0 [facility] Comment on above: Performed By: #### C MREP #### [facility] [address] [address] [address] Erasmo Smith Calcium [Mass/Vol] 8.9 mg/dL Normal 8.5-10.1 [facility] Comment on above: Performed By: #### C MREP #### [facility] [address] [address] [address] Erasmo Smith Chloride [Moles/Vol] 106 mmol/L Normal 98-107 [facility] Comment on above: Performed By: #### C MREP #### [facility] [address] [place] [address] Dr. Erasmo Smith CO2 [Moles/Vol] 26.9 mmol/L Normal 21.0-32.0 [facility] Comment on above: Performed By: #### C MREP #### [facility] [address] [place] [address] Dr. Erasmo Smith Creatinine [Mass/Vol] 0.79 mg/dL Normal 0.55-1.02 [facility] Comment on above: Performed By: #### C MREP #### [facility] [address] [place] [address] Dr. Erasmo Smith EGFR-AF NAURUAN >60 Normal >=60 [facility] Comment on above: Performed By: #### C MREP #### [facility] [address] [place] [address] Dr. Erasmo Smith EGFR-NON AF NAURUAN >60 Normal >=60 [facility] Comment on above: Performed By: #### C MREP #### [facility] [address] [place] [address] Dr. Erasmo Smith Globulin (S) [Mass/Vol] 4.6 g/dL Normal [facility] Comment on above: Performed By: #### C MREP #### [facility] [address] [place] [address] Dr. Erasmo Smith Glucose [Mass/Vol] 102 mg/dL Normal 74-106 [facility] Comment on above: Performed By: #### C MREP #### [facility] [address] [address] [address] Erasmo Smith Potassium [Moles/Vol] 4.4 mmol/L Normal 3.5-5.1 [facility] Comment on above: Performed By: #### C MREP #### [facility] [address] [place] [address] Dr. Erasmo Smith Protein [Mass/Vol] 8.4 g/dL Critically high 6.4-8.2 [facility] Comment on above: Performed By: #### C MREP #### [facility] [address] [place] [address] Dr. Erasmo Smith Sodium [Moles/Vol] 141 mmol/L Normal 136-145 [facility] Comment on above: Performed By: #### C MREP #### [facility] [address] [place] [address] Dr. Erasmo Smith Urea nitrogen [Mass/Vol] 28.0 mg/dL Critically high 7.0-18.0 [facility] Comment on above: Performed By: #### C MREP #### [facility] [address] [place] [address] Dr. Erasmo Smith Urea nitrogen/Creatinine [Mass ratio] 35.4 mg/mg Normal [facility] Comment on above: Performed By: #### C MREP #### [facility] [address] [place] [address] Dr. Erasmo Smith CBC AUTO DIFFon 07-12-2022 BASO # 0.1 103/ul Normal 0.0-0.1 [facility] Comment on above: Performed By: #### B COIL SPRING ASSEMBLER #### [facility] [address] [place] [address] Dr. Erasmo Smith Basophils/100 WBC (Bld) 0.5 % Normal 0.2-2.0 [facility] Comment on above: Performed By: #### B COIL SPRING ASSEMBLER #### [facility] [address] [place] [address] Dr. Erasmo Smith EO # 0.2 103/ul Normal 0.0-0.7 [facility] Comment on above: Performed By: #### B COIL SPRING ASSEMBLER #### [facility] [address] [place] [address] Dr. Erasmo Smith Eosinophils/100 WBC (Bld) 2.5 % Normal 0.9-7.0 [facility] Comment on above: Performed By: #### B COIL SPRING ASSEMBLER #### [facility] [address] [place] [address] Dr. Erasmo Smith Erythrocyte distribution width (RBC) [Ratio] 17.2 % Critically high 11.0-15.0 [facility] Comment on above: Performed By: #### B COIL SPRING ASSEMBLER #### [facility] [address] [place] [address] Dr. Erasmo Smith Hematocrit (Bld) [Volume fraction] 35.0 % Critically low 36.0-48.0 [facility] Comment on above: Performed By: #### B COIL SPRING ASSEMBLER #### [facility] [address] [place] [address] Dr. Erasmo Smith Hemoglobin (Bld) [Mass/Vol] 11.3 g/dL Critically low 12.0-16.0 [facility] Comment on above: Performed By: #### B COIL SPRING ASSEMBLER #### [facility] [address] [place] [address] Dr. Erasmo Smith IG # 0.02 10e3/ul Normal 0.00-0.03 [facility] Comment on above: Performed By: #### B COIL SPRING ASSEMBLER #### [facility] [address] [place] [address] Dr. Erasmo Smith IG % 0.2 % Normal 0.0-0.5 [facility] Comment on above: Performed By: #### B COIL SPRING ASSEMBLER #### [facility] [address] [place] [address] Dr. Erasmo Smith LYMPH # 2.3 103/ul Normal 1.2-3.8 [facility] Comment on above: Performed By: #### B COIL SPRING ASSEMBLER #### [facility] [address] [place] [address] Dr. Erasmo Smith Lymphocytes/100 WBC (Bld) 25.4 % Normal 20.5-60.0 [facility] Comment on above: Performed By: #### B COIL SPRING ASSEMBLER #### [facility] [address] [place] [address] Dr. Erasmo Smith MANUAL DIFF REQ NO Normal [facility] Comment on above: Performed By: #### B COIL SPRING ASSEMBLER #### [facility] [address] [place] [address] Dr. Erasmo Smith MCH (RBC) [Entitic mass] 25.5 pg Critically low 26.7-34.0 [facility] Comment on above: Performed By: #### B COIL SPRING ASSEMBLER #### [facility] [address] [place] [address] Dr. Erasmo Smith MCHC (RBC) [Mass/Vol] 32.3 g/dL Normal 29.9-35.2 [facility] Comment on above: Performed By: #### B COIL SPRING ASSEMBLER #### [facility] [address] [place] [address] Dr. Erasmo Smith MCV (RBC) [Entitic vol] 78.8 fL Critically low 81.0-99.0 [facility] Comment on above: Performed By: #### B COIL SPRING ASSEMBLER #### [facility] [address] [place] [address] Dr. Erasmo Smith MONO # 0.7 103/ul Normal 0.3-0.8 [facility] Comment on above: Performed By: #### B COIL SPRING ASSEMBLER #### [facility] [address] [place] [address] Dr. Erasmo Smith Monocytes/100 WBC (Bld) 7.5 % Normal 1.7-12.0 [facility] Comment on above: Performed By: #### B COIL SPRING ASSEMBLER #### [facility] [address] [place] [address] Dr. Erasmo Smith NEUT # 5.9 103/ul Normal 1.4-6.5 [facility] Comment on above: Performed By: #### B COIL SPRING ASSEMBLER #### [facility] [address] [place] [address] Dr. Erasmo Smith Neutrophils/100 WBC (Bld) 63.9 % Normal 43.0-75.0 [facility] Comment on above: Performed By: #### B COIL SPRING ASSEMBLER #### [facility] [address] [address] [address] Erasmo Smith Platelet mean volume (Bld) [Entitic vol] 9.0 fL Critically low 9.5-13.5 [facility] Comment on above: Performed By: #### B COIL SPRING ASSEMBLER #### [facility] [address] [address] [address] Erasmo Smith PLT 305 103/ul Normal 150-450 [facility] Comment on above: Performed By: #### B COIL SPRING ASSEMBLER #### [facility] [address] [address] [address] Erasmo Smith RBC 4.44 106/ul Normal 4.20-5.40 [facility] Comment on above: Performed By: #### B COIL SPRING ASSEMBLER #### [facility] [address] [address] [address] Erasmo Smith WBC 9.2 103/ul Normal 4.0-11.0 [facility] Comment on above: Performed By: #### B COIL SPRING ASSEMBLER #### [facility] [address] [address] [address] CHEST WO CONon 05-27-2022 CT CHEST WO CON EXAMINATION: CT CHES T WO CON HISTORY: Lung field abnormal ; [...] PAULA BROWN Date: 2022-05-27 15:27 Normal [facility] HEMOGLOBINon 04-20-2022 Hemoglobin (Bld) [Mass/Vol] 10.6 g/dL Critically low 12.0-16.0 [facility] Comment on above: Performed By: #### H GB ####[facility] [address] [address]Dr. Erasmo Smith CULTURE SPUTUMon 04-02-2022 CULTURE SPUTUM Isolate 1 Pseudomonas aeruginosa Light growth of ORGANISM 1 Pseudomonas aeruginosa ANTIBIOTIC M.I.C RX STATUS Piperacillin/Tazobact am 8 S F Ceftazidime 2 S F Imipenem 1 S F Amikacin <=2 S F Gentamicin <=1 S F Tobramycin <=1 S F Ciprofloxacin <=0.25 S F Levofloxacin 0.25 S F Normal [facility] Comment on above: Performed By: #### S PUTCX ####[facility] [address] [place], [place] [address]Dr. Erasmo Smith CYTOLOGYon 03-30-2022 SENT TO REF LAB 03/31/22 Normal [facility] Comment on above: Performed By: #### C YTO #### [facility] [address] [place] [address] Dr. Erasmo Smith SPUTUM GRAM STAINon 03-30-20 22 COMMENTS Normal [facility] Comment on above: Performed By: #### B COIL SPRING ASSEMBLER #### [facility] [address] [place] [address] Dr. Erasmo Smith DIPHTHEROIDS Normal [facility] Comment on above: Performed By: #### B COIL SPRING ASSEMBLER #### [facility] [address] [place] [address] Dr. Erasmo Smith EPITHELIALS <25 Normal [facility] Comment on above: Performed By: #### B COIL SPRING ASSEMBLER #### [facility] [address] [place] [address] Dr. Erasmo Smith FUNGAL ELEMENTS Normal [facility] Comment on above: Performed By: #### B COIL SPRING ASSEMBLER #### [facility] [address] [place] [address] Dr. Erasmo Smith GRAM NEG BACILLI FEW Normal [facility] Comment on above: Performed By: #### B COIL SPRING ASSEMBLER #### [facility] [address] [address] [address] Erasmo Smith GRAM NEG DIPPLOCOCCI Normal [facility] Comment on above: Performed By: #### B COIL SPRING ASSEMBLER #### [facility] [address] [address] [address] Erasmo Smith GRAM POS BACILLI Normal [facility] Comment on above: Performed By: #### B COIL SPRING ASSEMBLER #### [facility] [address] [address] [address] Erasmo Smith GRAM POSITIVE COCCI MANY Normal [facility] Comment on above: Performed By: #### B COIL SPRING ASSEMBLER #### [facility] [address] [address] [address] Erasmo Smith WBC (Bld) [#/Vol] 10*3/uL Normal [facility] Comment on above: Performed By: #### B COIL SPRING ASSEMBLER #### [facility] [address] [address] [address] Erasmo Smith SPUTUM CULTUREon 03-01-2022 Epithelial cells LM Ql (Urine sed) Few Normal [facility] Comment on above: Performed By: #### C XSPTUM ####[facility] [id number] [place] [address]DrMeena Smith Gram Stain Evaluation Comment Normal [facility] Comment on above: Result Comment: This specimen is of good quality and is acceptable for routine bacterial culture. Performed By: #### C XSPTUM ####[facility] [id number] [place] [address]DrMeena Smith Lower Respiratory Culture Final report Normal [facility] Comment on above: Performed By: #### C XSPTUM ####[facility] [id number] [place] [address]DrMeena Smith Result 1 Comment Normal [facility] Comment on above: Result Comment: Few gram positive cocci Performed By: #### C XSPTUM ####[facility] [address] [place] [address]DrMeena Smith Result Comment: Rout ine respiratory adria Result 2 Normal [facility] Comment on above: Performed By: #### C XSPTUM ####[facility] [id number] [place] [address]Dr. Erasmo Smith Result 3 Normal [facility] Comment on above: Performed By: #### C XSPTUM ####[facility] [id number] [place] [address]Dr. Erasmo Smith Result 4 Normal [facility] Comment on above: Performed By: #### C XSPTUM ####[facility] [id number] [place] [address]Dr. Erasmo Smith White Blood Cells Few Normal [facility] Comment on above: Performed By: #### C XSPTUM ####[facility] [id number] [place] [address]DrMeena Smith BNPon 02-24-2022 Natriuretic peptide B (Bld) [Mass/Vol] 319.0 pg/mL Normal <=900.0 [facility] Comment on above: Performed By: #### B [employer] #### [facility] [address] [place] [address] [address] Erasmo Smith CBC AUTO DIFFon 02-24-2022 BASO # 0.1 103/ul Normal 0.0-0.1 [facility] Comment on above: Performed By: #### C MREP #### [facility] [address] [address] [address] Erasmo Smith Basophils/100 WBC (Bld) 0.5 % Normal 0.2-2.0 [facility] Comment on above: Performed By: #### C MREP #### [facility] [address] [address] [address] Erasmo Smith EO # 0.3 103/ul Normal 0.0-0.7 [facility] Comment on above: Performed By: #### C MREP #### [facility] [address] [address] [address] Erasmo Smith Eosinophils/100 WBC (Bld) 3.1 % Normal 0.9-7.0 [facility] Comment on above: Performed By: #### C MREP #### [facility] [address] [place] [address] Dr. Erasmo Smith Erythrocyte distribution width (RBC) [Ratio] 15.1 % Critically high 11.0-15.0 [facility] Comment on above: Performed By: #### C MREP #### [facility] [address] [place] [address] Dr. Erasmo Smith Hematocrit (Bld) [Volume fraction] 33.9 % Critically low 36.0-48.0 [facility] Comment on above: Performed By: #### C MREP #### [facility] [address] [place] [address] Dr. Erasmo Smith Hemoglobin (Bld) [Mass/Vol] 10.7 g/dL Critically low 12.0-16.0 [facility] Comment on above: Performed By: #### C MREP #### [facility] [address] [place] [address] Dr. Erasmo Smith IG # 0.03 10e3/ul Normal 0.00-0.03 [facility] Comment on above: Performed By: #### C MREP #### [facility] [address] [place] [address] Dr. Erasmo Smith IG % 0.3 % Normal 0.0-0.5 [facility] Comment on above: Performed By: #### C MREP #### [facility] [address] [place] [address] Dr. Erasmo Smith LYMPH # 2.8 103/ul Normal 1.2-3.8 [facility] Comment on above: Performed By: #### C MREP #### [facility] [address] [place] [address] Dr. Erasmo Smith Lymphocytes/100 WBC (Bld) 30.6 % Normal 20.5-60.0 [facility] Comment on above: Performed By: #### C MREP #### [facility] [address] [place] [address] Dr. Erasmo Smith MANUAL DIFF REQ NO Normal [facility] Comment on above: Performed By: #### C MREP #### [facility] [address] [address] [address] Erasmo Smith MCH (RBC) [Entitic mass] 26.9 pg Normal 26.7-34.0 [facility] Comment on above: Performed By: #### C MREP #### [facility] [address] [place] [address] Dr. Erasmo Smith MCHC (RBC) [Mass/Vol] 31.6 g/dL Normal 29.9-35.2 [facility] Comment on above: Performed By: #### C MREP #### [facility] [address] [place] [address] Dr. Erasmo Smith MCV (RBC) [Entitic vol] 85.2 fL Normal 81.0-99.0 [facility] Comment on above: Performed By: #### C MREP #### [facility] [address] [place] [address] Dr. Erasmo Smith MONO # 0.7 103/ul Normal 0.3-0.8 [facility] Comment on above: Performed By: #### C MREP #### [facility] [address] [place] [address] Dr. Erasmo Smith Monocytes/100 WBC (Bld) 7.9 % Normal 1.7-12.0 [facility] Comment on above: Performed By: #### C MREP #### [facility] [address] [place] [address] Dr. Erasmo Smith NEUT # 5.3 103/ul Normal 1.4-6.5 [facility] Comment on above: Performed By: #### C MREP #### [facility] [address] [place] [address] Dr. Erasmo Smith Neutrophils/100 WBC (Bld) 57.6 % Normal 43.0-75.0 [facility] Comment on above: Performed By: #### C MREP #### [facility] [address] [place] [address] Dr. Erasmo Smith Platelet mean volume (Bld) [Entitic vol] 9.0 fL Critically low 9.5-13.5 [facility] Comment on above: Performed By: #### C MREP #### [facility] [address] [place], [place] [address] Dr. Erasmo Smith PLT 249 103/ul Normal 150-450 [facility] Comment on above: Performed By: #### C MREP #### [facility] [address] [place], [place] [address] Dr. Erasmo Smith RBC 3.98 106/ul Critically low 4.20-5.40 [facility] Comment on above: Performed By: #### C MREP #### [facility] [address] [place], [place] [address] Dr. Erasmo Smith WBC 9.1 103/ul Normal 4.0-11.0 [facility] Comment on above: Performed By: #### C MREP #### [facility] [address] [place], [place] [address] Dr. Erasmo Smith CTA CHEST WO W [...] PAULA BROWN Date: 2022-02-24 18:24 Normal [facility] D-DIMERon 02-24-2022 D-DIMER 1.36 mg/L FEU Critically high <=0.59 [facility] Comment on above: Performed By: #### D DIM #### [facility] [address] [place] [address] Dr. Erasmo Smith D-DIMER COMMENTS SEE BELOW Normal [facility] Comment on above: Result Comment: Incr [...] hospitalization. Performed By: #### D DIM #### [facility] [address] [place] [address] Dr. Erasmo Smith PROF 14(COMP METB)on 022 Albumin [Mass/Vol] 3.6 g/dL Normal 3.4-5.0 [facility] Comment on above: Performed By: #### C MREP #### [facility] [address] [place] [address] Dr. Erasmo Smith Albumin/Globulin [Mass ratio] 0.8 {ratio} Normal [facility] Comment on above: Performed By: #### C MREP #### [facility] [address] [place] [address] Dr. Erasmo Smith ALP [Catalytic activity/Vol] 95 U/L Normal 46-116 [facility] Comment on above: Performed By: #### C MREP #### [facility] [address] [place] [address] Dr. Erasmo Smith ALT [Catalytic activity/Vol] 45 U/L Normal 14-59 [facility] Comment on above: Performed By: #### C MREP #### [facility] [address] [address] [address] Erasmo Smith Anion gap [Moles/Vol] 15.9 mmol/L Normal [facility] Comment on above: Performed By: #### C MREP #### [facility] [address] [address] [address] Erasmo Smith AST [Catalytic activity/Vol] 33 U/L Normal 15-37 [facility] Comment on above: Performed By: #### C MREP #### [facility] [address] [address] [address] Erasmo Smith Bilirubin [Mass/Vol] 0.5 mg/dL Normal 0.2-1.0 [facility] Comment on above: Performed By: #### C MREP #### [facility] [address] [address] [address] Erasmo Smith Calcium [Mass/Vol] 9.1 mg/dL Normal 8.5-10.1 [facility] Comment on above: Performed By: #### C MREP #### [facility] [address] [address] [address] Erasmo Smith Chloride [Moles/Vol] 103 mmol/L Normal 98-107 [facility] Comment on above: Performed By: #### C MREP #### [facility] [address] [address] [address] Erasmo Smith CO2 [Moles/Vol] 25.1 mmol/L Normal 21.0-32.0 [facility] Comment on above: Performed By: #### C MREP #### [facility] [address] [address] [address] Erasmo Smith Creatinine [Mass/Vol] 0.77 mg/dL Normal 0.55-1.02 [facility] Comment on above: Performed By: #### C MREP #### [facility] [address] [place] [address] [address] Erasmo Smith EGFR-AF NAURUAN >60 Normal >=60 [facility] Comment on above: Performed By: #### C MREP #### [facility] [address] [address] [address] Erasmo Smith EGFR-NON AF NAURUAN >60 Normal >=60 [facility] Comment on above: Performed By: #### C MREP #### [facility] [address] [address] [address] Erasmo Smith Globulin (S) [Mass/Vol] 4.3 g/dL Normal [facility] Comment on above: Performed By: #### C MREP #### [facility] [address] [address] [address] Erasmo Smith Glucose [Mass/Vol] 92 mg/dL Normal 74-106 [facility] Comment on above: Performed By: #### C MREP #### [facility] [address] [place] [address] Dr. Erasmo Smith Potassium [Moles/Vol] 4.0 mmol/L Normal 3.5-5.1 [facility] Comment on above: Performed By: #### C MREP #### [facility] [address] [address] [address] Erasmo Smith Protein [Mass/Vol] 7.9 g/dL Normal 6.4-8.2 [facility] Comment on above: Performed By: #### C MREP #### [facility] [address] [place] [address] Dr. Erasmo Smith Sodium [Moles/Vol] 140 mmol/L Normal 136-145 [facility] Comment on above: Performed By: #### C MREP #### [facility] [address] [address] [address] Erasmo Smith Urea nitrogen [Mass/Vol] 17.0 mg/dL Normal 7.0-18.0 [facility] Comment on above: Performed By: #### C MREP #### [facility] [address] [place] [address] Dr. Erasmo Smith Urea nitrogen/Creatinine [Mass ratio] 22.1 mg/mg Normal [facility] Comment on above: Performed By: #### C MREP #### [facility] [address] [address] [address] Erasmo Smith PROTIMEon 02-24-2022 INR Coag (PPP) [Relative time] 2.28 {INR} Normal [facility] Comment on above: Performed By: #### P T, PTT ####[facility] [id number] [place] [address]DrMeena Smith INR GUIDELINES SEE BELOW Normal [facility] Comment on above: Result Comment: ABNER RED INR: 2.0 - 3.0 CONDITIONS NOT LISTED BELOW 2.5 - 3.5 FOR PROSTHETIC HEART VALVE REPLACEMENT 2.5 - 3.5 RECURRENT THROMBOSIS Performed By: #### P T, PTT ####[facility] [id number] [place] [address]Dr. Erasmo Smith PT Coag (PPP) [Time] 23.3 s Critically high 9.0-11.6 [facility] Comment on above: Performed By: #### P T, PTT ####[facility] [id number] [place] [address]Dr. Erasmo Smith PTTon 02-24-2022 aPTT Coag (Bld) [Time] 34.7 s Normal 22.3-36.2 [facility] Comment on above: Performed By: #### P T, PTT ####[facility] [id number] [place] [address]DrMeena Smith TROPONIN, HIGH SENSITIVITYon 02-24-2022 HSTROP 6.6 pg/mL Normal 4.0-51.3 [facility] Comment on above: Result Comment: CUT- OFF POINTS HAVE BEEN ESTABLISHED BASED ON THE FOURTH UNIVERSAL DEFINITIONS OF MYOCARDIAL INFARCTION. THE UPPER REFERENCE LIMIT (URL) OF TROPONIN, DEFINED THE 99TH PERCENTILE OF cTnI DISTRIBUTION IN A REFERENCE POPULATION, HAS BEEN CONFIRMED THE DECISION THRESHOLD FOR [place] DIAGNOSIS. Performed By: #### C MREP #### [facility] [address] [address] [address] Erasmo Smith PROTHROMBIN TIMEon 2 INR Coag (PPP) [Relative time] 1.2 {INR} High 0.86-1.16 [facility] Comment on above: Result Comment: INR Theraputic Range: 2.0-3.5 Performed at [facility] [address] [facility] [address] PT Coag (PPP) [Time] 12.7 s Normal 9.3-12.7 [facility] ANTICOAGULANT COUMADIN Normal [facility] Vital Signs Date Time Vital Sign Value Performing Clinician Sophie echols 10-17-2024 11:35-0500 Body height 149.9 cm Renny Hansen MD Work Phone: [facility] 10-17-2024 11:35-0500 Body mass index (BMI) [Ratio] 44.23 kg/m2 Renny Hansen MD Work Phone: [facility] 10-17-2024 11:35-0500 Body weight 99.34 kg Renny Hansen MD Work Phone: [facility] 10-17-2024 11:35-0500 Diastolic blood pressure 76 mm[Hg] Renny Hansen MD Work Phone: [facility] 10-17-2024 11:35-0500 Heart rate 61 /min Renny Hansen MD Work Phone: [facility] 10-17-2024 11:35-0500 SaO2% (BldA) [Mass fraction] 97 % Renny Hansen MD Work Phone: [facility] 10-17-2024 11:35-0500 Systolic blood pressure 138 mm[Hg] Renny Hansen MD Work Phone: [facility] 10-04-2024 14:56-0500 Body height 149.9 cm Dmitriy Duque DO Work Phone: [facility] 10-04-2024 14:56-0500 Body mass index (BMI) [Ratio] 45.04 kg/m2 Dmitriy Duque DO Work Phone: [facility] 10-04-2024 14:56-0500 Body weight 101.15 kg Dmitriy Duque DO Work Phone: [facility] 10-04-2024 14:56-0500 Diastolic blood pressure 70 mm[Hg] Dmitriy Duque DO Work Phone: [facility] 10-04-2024 14:56-0500 Systolic blood pressure 120 mm[Hg] Dmitriy Duque DO Work Phone: [facility] 09-25-2024 11:13-0500 Body height 149.86 cm Renny Hansen II Work Phone: [facility] 09-25-2024 11:13-0500 Body mass index (BMI) [Ratio] 44.6 kg/m2 Renny Hansen II Work Phone: [facility] 09-25-2024 11:13-0500 Body temperature 97.3 [degF] Renny Hansen II Work Phone: [facility] 09-25-2024 11:13-0500 Body weight 100.24 kg Renny Hansen II Work Phone: [facility] 09-25-2024 11:13-0500 Diastolic blood pressure 69 mm[Hg] Renny Hansen II Work Phone: [facility] 09-25-2024 11:13-0500 Heart rate 72 /min Renny Hansen II Work Phone: [facility] 09-25-2024 11:13-0500 Respiratory rate 16 /min Renny Hansen II Work Phone: [facility] 09-25-2024 11:13-0500 SaO2% (BldA) [Mass fraction] 98 % Renny Hansen II Work Phone: [facility] 09-25-2024 11:13-0500 Systolic blood pressure 173 mm[Hg] Renny Hansen II Work Phone: [facility] 09-19-2024 15:12-0500 Body height 149.9 cm Luisana Cardozo [employer] Work Phone: [facility] 09-19-2024 15:12-0500 Body mass index (BMI) [Ratio] 44.07 kg/m2 Luisana Cardozo [employer] Work Phone: [facility] 09-19-2024 15:12-0500 Body weight 98.97 kg Luisana Cardozo [employer] Work Phone: [facility] 09-19-2024 15:12-0500 Diastolic blood pressure 68 mm[Hg] Luisana Cardozo [employer] Work Phone: [facility] 09-19-2024 15:12-0500 Heart rate 63 /min Luisana Cardozo [employer] Work Phone: [facility] 09-19-2024 15:12-0500 Respiratory rate 18 /min Luisana Cardozo [employer] Work Phone: [facility] 09-19-2024 15:12-0500 SaO2% (BldA) [Mass fraction] 95 % Luisana Cardozo [employer] Work Phone: [facility] 09-19-2024 15:12-0500 Systolic blood pressure 128 mm[Hg] Luisana Cardozo [employer] Work Phone: [facility] 09-18-2024 10:09-0500 Body mass index (BMI) [Ratio] 43.83 kg/m2 Christopher Jose Roberto DO Work Phone: [facility] 09-18-2024 10:09-0500 Body weight 98.43 kg Christopher Jose Roberto DO Work Phone: [facility] 09-18-2024 10:09-0500 Diastolic blood pressure 86 mm[Hg] Christopher Jose Roberto DO Work Phone: [facility] 09-18-2024 10:09-0500 Heart rate 66 /min Christopher Jose Roberto DO Work Phone: [facility] 09-18-2024 10:09-0500 SaO2% (BldA) [Mass fraction] 91 % Christopher Jose Roberto DO Work Phone: [facility] 09-18-2024 10:09-0500 Systolic blood pressure 136 mm[Hg] Christopher Jose Roberto DO Work Phone: [facility] 09-10-2024 13:00-0500 Body temperature 97.2 [degF] Renny Hansen II Work Phone: [facility] 09-10-2024 13:00-0500 Diastolic blood pressure 67 mm[Hg] Renny Hansen II Work Phone: [facility] 09-10-2024 13:00-0500 Heart rate 72 /min Renny Hansen II Work Phone: [facility] 09-10-2024 13:00-0500 Respiratory rate 19 /min Renny Hansen II Work Phone: [facility] 09-10-2024 13:00-0500 SaO2% (BldA) [Mass fraction] 96 % Renny Hansen II Work Phone: [facility] 09-10-2024 13:00-0500 Systolic blood pressure 157 mm[Hg] Renny Hansen II Work Phone: [facility] 08-24-2024 13:00-0500 Body height 149.86 cm Renny Hansen II Work Phone: [facility] 08-24-2024 13:00-0500 Body mass index (BMI) [Ratio] 45.4 kg/m2 Renny Hansen II Work Phone: [facility] 08-24-2024 13:00-0500 Body temperature 97.8 [degF] Renny Hansen II Work Phone: [facility] 08-24-2024 13:00-0500 Body weight 102.05 kg Renny Hansen II Work Phone: [facility] 08-24-2024 13:00-0500 Diastolic blood pressure 69 mm[Hg] Renny Hansen II Work Phone: [facility] 08-24-2024 13:00-0500 Heart rate 61 /min Renny Hansen II Work Phone: [facility] 08-24-2024 13:00-0500 Respiratory rate 16 /min Renny Hansen II Work Phone: [facility] 08-24-2024 13:00-0500 SaO2% (BldA) [Mass fraction] 98 % Renny Hansen II Work Phone: [facility] 08-24-2024 13:00-0500 Systolic blood pressure 137 mm[Hg] Renny Hansen II Work Phone: [facility] 08-16-2024 10:33-0500 Body height 149.9 cm Renny Hansen MD Work Phone: [facility] 08-16-2024 10:33-0500 Body mass index (BMI) [Ratio] 44.23 kg/m2 Renny Hansen MD Work Phone: [facility] 08-16-2024 10:33-0500 Body weight 99.34 kg Renny Hansen MD Work Phone: [facility] 08-16-2024 10:33-0500 Diastolic blood pressure 80 mm[Hg] Renny Hansen MD Work Phone: [facility] 08-16-2024 10:33-0500 Heart rate 66 /min Renny Hansen MD Work Phone: [facility] 08-16-2024 10:33-0500 SaO2% (BldA) [Mass fraction] 95 % Renny Hansen MD Work Phone: [facility] 08-16-2024 10:33-0500 Systolic blood pressure 132 mm[Hg] Renny Hansen MD Work Phone: [facility] 08-02-2024 10:51-0500 Body height 149.9 cm Renny Hansen MD Work Phone: [facility] 08-02-2024 10:51-0500 Body mass index (BMI) [Ratio] 44.84 kg/m2 Renny Hansen MD Work Phone: [facility] 08-02-2024 10:51-0500 Body temperature 98.4 [degF] Renny Hansen MD Work Phone: [facility] 08-02-2024 10:51-0500 Body weight 100.7 kg Renny Hansen MD Work Phone: [facility] 08-02-2024 10:51-0500 Diastolic blood pressure 72 mm[Hg] Renny Hansen MD Work Phone: [facility] 08-02-2024 10:51-0500 Heart rate 60 /min Renny Hansen MD Work Phone: [facility] 08-02-2024 10:51-0500 SaO2% (BldA) [Mass fraction] 95 % Renny Hansen MD Work Phone: [facility] 08-02-2024 10:51-0500 Systolic blood pressure 134 mm[Hg] Renny Hansen MD Work Phone: [facility] 07-24-2024 10:48-0500 Body height 149.9 cm Eleanor Hemmer PA Work Phone: [facility] 07-24-2024 10:48-0500 Body mass index (BMI) [Ratio] 45.85 kg/m2 Eleanor Hemmer PA Work Phone: [facility] 07-24-2024 10:48-0500 Body weight 102.97 kg Eleanor Hemmer PA Work Phone: [facility] 07-24-2024 10:48-0500 Diastolic blood pressure 68 mm[Hg] Eleanor Hemmer PA Work Phone: [facility] 07-24-2024 10:48-0500 Heart rate 60 /min Eleanor Hemmer PA Work Phone: [facility] 07-24-2024 10:48-0500 SaO2% (BldA) [Mass fraction] 96 % Eleanor Hemmer PA Work Phone: [facility] 07-24-2024 10:48-0500 Systolic blood pressure 124 mm[Hg] Eleanor Hemmer PA Work Phone: [facility] 07-05-2024 08:50-0400 Body height 149.9 cm Renny Hansen MD Work Phone: [facility] 07-05-2024 08:50-0400 Body mass index (BMI) [Ratio] 46.66 kg/m2 Renny Hansen MD Work Phone: [facility] 07-05-2024 08:50-0400 Body weight 104.78 kg Renny Hansen MD Work Phone: [facility] 07-05-2024 08:50-0400 Diastolic blood pressure 74 mm[Hg] Renny Hansen MD Work Phone: [facility] 07-05-2024 08:50-0400 Heart rate 69 /min Renny Hansen MD Work Phone: [facility] 07-05-2024 08:50-0400 SaO2% (BldA) [Mass fraction] 96 % Renny Hansen MD Work Phone: [facility] 07-05-2024 08:50-0400 Systolic blood pressure 130 mm[Hg] Renny Hansen MD Work Phone: [facility] 05-31-2024 13:46-0400 Body height 149.9 cm Monster Calvillo [employer] Work Phone: [facility] 05-31-2024 13:46-0400 Body mass index (BMI) [Ratio] 47.87 kg/m2 Monster Calvillo [employer] Work Phone: [facility] 05-31-2024 13:46-0400 Body temperature 98.4 [degF] Monster Calvillo [employer] Work Phone: [facility] 05-31-2024 13:46-0400 Body weight 107.5 kg Monster Calvillo [employer] Work Phone: [facility] 05-31-2024 13:46-0400 Diastolic blood pressure 80 mm[Hg] Monster Calvillo [employer] Work Phone: [facility] 05-31-2024 13:46-0400 Heart rate 73 /min Monster Calvillo [employer] Work Phone: [facility] 05-31-2024 13:46-0400 SaO2% (BldA) [Mass fraction] 95 % Monster Calvillo [employer] Work Phone: [facility] 05-31-2024 13:46-0400 Systolic blood pressure 140 mm[Hg] Monster Calvillo [employer] Work Phone: [facility] 05-22-2024 13:17-0400 Body height 149.9 cm Boo Sherwin PA-C Work Phone: [facility] 05-22-2024 13:17-0400 Body mass index (BMI) [Ratio] 44.43 kg/m2 Boo Sherwin PA-C Work Phone: [facility] 05-22-2024 13:17-0400 Body weight 99.79 kg Boo Sherwin PA-C Work Phone: [facility] 03-02-2024 11:51-0400 Blood Pressure Location Ortega PARKL [facility] 03-02-2024 11:51-0400 Diastolic blood pressure 75 mm[Hg] Ortega PARKL [facility] 03-02-2024 11:51-0400 Heart rate 71 /min Ortega PARKL [facility] 03-02-2024 11:51-0400 Respiratory rate 16 /min Ortega PARKL [facility] 03-02-2024 11:51-0400 Systolic blood pressure 118 mm[Hg] Ortega PARKL [facility] 10-07-2021 16:00-0500 Body height 146.69 cm Hong Nevarez Other [employer] Other 10-07-2021 16:00-0500 Body mass index (BMI) [Ratio] 51.01 kg/m2 Hong Nevarez Other [employer] Other 10-07-2021 16:00-0500 Body weight 109.77 kg Hong Nevarez Other [employer] Other 08-26-2021 15:15-0500 Body height 146.69 cm Hong Nevarez Other [employer] Other 08-26-2021 15:15-0500 Body mass index (BMI) [Ratio] 51.07 kg/m2 Hong Nevarez Other [employer] Other 08-26-2021 15:15-0500 Body weight 109.91 kg Hong Nevarez Other [employer] Other Encounters Encounter Date Encounter Type Care Provider Facility Start: 10-17-2024 End: 10-17-2024 BamPebbleo flowsheet Renny Hansen MD Work Phone: [facility] Start: 10-17-2024 End: 10-17-2024 Bamboo flowsheet Renny Hansen MD Work Phone: [facility] Start: 10-17-2024 End: 10-17-2024 Assay of hemosiderin, quant Renny Hansen MD Work Phone: [facility] Start: 10-17-2024 End: 10-17-2024 Patient encounter procedure Renny Hansen MD Work Phone: [facility] Comment on above: Routine general medi bindu examination at health care facility (Primary Dx); ACP (advance care planning); Acute non-recurrent sinusitis, unspecified location; Enlarged lymph nodes in armpit; Injury of left shoulder and upper arm, sequela; Mastitis, left, acute; Left shoulder pain, unspecified chronicity; Abnormal mammogram; Phlebitis of left upper extremity Start: 10-16-2024 End: 10-16-2024 ambulatory Renny Hansen II Work Phone: [facility] Work Phone: Start: 10-16-2024 End: 10-16-2024 Patient encounter procedure Renny Hansen II Work Phone: [facility] Car Start: 10-09-2024 End: 10-09-2024 Clinisync Result Encounter Generic External Data Provider [facility] External Department Unsolicited Start: 10-09-2024 End: 10-09-2024 Clinisync Result Encounter Generic External Data Provider [facility] External Department Unsolicited Start: 10-04-2024 End: 10-04-2024 ambulatory DMITRIY DUQUE Not Available Start: 10-04-2024 End: 10-04-2024 Office outpatient new 45 minutes Dmitriy Duque DO Work Phone: [facility] Comment on above: Enlarged lymph nodes in armpit (Primary Dx) Start: 10-03-2024 End: 10-03-2024 Clinisync Result Encounter Generic External Data Provider [facility] External Department Unsolicited Start: 10-03-2024 End: 10-03-2024 Clinisync Result Encounter Generic External Data Provider [facility] External Department Unsolicited Start: 10-02-2024 End: 10-02-2024 External Result Encounter Katharina Toledo [employer] Work Phone: [facility] Department Unsolicited Start: 10-02-2024 End: 10-02-2024 External Result Encounter Katharina Toledo [employer] Work Phone: [facility] External Department Unsolicited Start: 10-02-2024 Registered Recurring Renny Dominik batista II Work Phone: [facility] Acute Work Phone: Start: 10-02-2024 ambulatory Renny Hansen Facility:[facility] Start: 09-25-2024 End: 09-25-2024 ambulatory Renny Hansen II Work Phone: [facility] Work Phone: Start: 09-25-2024 End: 09-25-2024 Patient encounter procedure Renny Hansen II Work Phone: [facility] Ambulatory Work Phone: Start: 09-24-2024 End: 09-24-2024 ambulatory [facility] Start: 09-19-2024 End: 09-19-2024 ambulatory LUISANA CARDOZO Not Available Start: 09-19-2024 End: 09-19-2024 Office outpatient visit 25 minutes Luisana Cardozo [employer] Work Phone: [facility] Comment on above: Acute cystitis with hematuria (Primary Dx); Burning with urination; Centrilobular emphysema (CMS/HCC); Morbid (severe) obesity due to excess calories (CMS/HCC); Body mass index (BMI) 40.0-44.9, adult (CMS/HCC); Chronic obstructive pulmonary disease, unspecified (CMS/HCC); Pulmonary hypertension, unspecified (CMS/HCC); Need for vaccination Start: 09-18-2024 End: 09-18-2024 Bamboo flowsheet Salome Jose Roberto DO Work Phone: [facility] [employer] [facility] Start: 09-18-2024 End: 09-18-2024 Bamboo flowsheet Christopher Jose Roberto DO Work Phone: [facility] [employer] [facility] Start: 09-18-2024 End: 09-18-2024 Office outpatient new 45 minutes Christopher Jose Roberto DO Work Phone: [facility] [employer] [facility] Comment on above: Axillary lymphadenop athy (Primary Dx); Neck pain on left side; Left arm pain Start: 09-18-2024 End: 09-18-2024 ambulatory SALOME CID Not Available Start: 09-14-2024 End: 09-14-2024 Refill Renny Hansen MD Work Phone: [facility] Comment on above: Persistent atrial fi brillation (HCC) (CMS/HCC) Start: 09-10-2024 End: 09-10-2024 ambulatory Miguel Murphy MD Facility:[facility] Start: 08-24-2024 End: 08-24-2024 Patient encounter procedure Renny Hansen II Work Phone: [facility] [place] Work Phone: Start: 08-24-2024 End: 08-24-2024 ambulatory Pedro Pablo Cruz Facility:[facility] Start: 08-24-2024 End: 08-24-2024 External Result Encounter Katharina Toledo [employer] Work Phone: [facility] External Department Unsolicited Start: 08-24-2024 End: 08-24-2024 External Result Encounter Katharina Toledo [employer] Work Phone: [facility] External Department Unsolicited Start: 08-24-2024 End: 08-24-2024 Patient encounter procedure Renny Hansen II Work Phone: [facility] Work Phone: Start: 08-20-2024 End: 08-20-2024 ambulatory Miguel Murphy MD Facility:[facility] Start: 08-16-2024 End: 08-16-2024 Bamboo flowsheet Renny Hansen MD Work Phone: [facility] Start: 08-16-2024 End: 08-16-2024 Bamboo flowsheet Renny Hansen MD Work Phone: [facility] Start: 08-16-2024 End: 08-16-2024 ambulatory RENNY HANSEN Not Available Start: 08-16-2024 End: 08-16-2024 Office outpatient visit [...] Not Available Start: 07-19-2024 End: 07-19-2024 ambulatory DMITRIY DUQUE Not Available Start: 07-18-2024 End: 07-18-2024 ambulatory [facility] Start: 07-16-2024 End: 07-16-2024 Refill Monster Calvillo [employer] Work Phone: [facility] Comment on [...] Not Available Start: 06-19-2024 End: 06-19-2024 ambulatory [facility] Start: 06-18-2024 End: 06-18-2024 Refill Monster Calvillo [employer] Work Phone: [facility] Comment on above: Acute on chronic nisa stolic (congestive) heart failure (CMS/HCC) Start: 05-31-2024 End: 05-31-2024 Bamboo flowsheet Monster Calvillo [employer] Work Phone: [facility] Start: 05-31-2024 End: 05-31-2024 Bamboo flowsheet Monster Calvillo [employer] Work Phone: [facility] Start: 05-31-2024 End: 05-31-2024 Office outpatient visit 15 minutes Monster Valadezk [employer] Work Phone: [facility] Comment on [...] Jr. Sakina Cardenas DO Work Phone: [facility] Comment on above: Acute pain of left s houlder (Primary Dx); History of reverse total replacement of left shoulder joint Start: 05-09-2024 End: 05-09-2024 ambulatory SAKINA MARIO Not Available Start: 05-02-2024 End: 05-02-2024 Patient encounter procedure MD Shaikh Denis Work Phone: [facility] [place] Work Phone: Start: 05-02-2024 End: 05-02-2024 ambulatory MD Shaikh Denis Work Phone: [facility] Work Phone: Start: 04-16-2024 End: 04-16-2024 ambulatory PEDRO PABLO CRUZ Not Available Start: 04-16-2024 End: 04-16-2024 ambulatory Miguel Murphy MD Facility:[facility] Start: 04-11-2024 End: 04-11-2024 ambulatory SHAIKH CIRA Not Available Start: 04-10-2024 End: 04-10-2024 Patient encounter procedure MD Shaikh Denis Work Phone: [facility] [place] Work Phone: Start: 04-10-2024 End: 04-10-2024 ambulatory MD Shaikh Denis Work Phone: [facility] Work Phone: Start: 04-02-2024 End: 04-02-2024 ambulatory Miguel Murphy MD Facility:[facility] [place] Start: 03-29-2024 End: 03-29-2024 Patient encounter procedure MD Shaikh Denis Work Phone: [facility]-Pacemaker Check Start: 03-29-2024 End: 03-29-2024 ambulatory MD Shaikh Denis Work Phone: [facility] Work Phone: Start: 03-12-2024 End: 03-12-2024 ambulatory SHAIKH CIRA Not Available Start: 03-07-2024 End: 03-07-2024 ambulatory Ortega ALEXANDER Facility:[id number] Start: 03-02-2024 End: 03-02-2024 ambulatory Ortega ALEXANDER Facility:[facility] [place] Start: 03-02-2024 End: 03-02-2024 Patient encounter procedure Ortega ALEXANDER [address] [place] [address] General Surgery [facility] Start: 03-01-2024 ambulatory Ortega NILAnkur Facility:[facility] Start: 02-27-2024 End: 02-27-2024 ambulatory SHAIKH CIRA Not Available Start: 01-17-2024 End: 01-17-2024 ambulatory NICANOR [facility] Start: 12-29-2023 End: 12-29-2023 ambulatory SHAIKH CIRA Not Available Start: 12-27-2023 End: 12-27-2023 ambulatory DMITRIY [facility] Start: 12-26-2023 End: 12-26-2023 ambulatory Miguel Murphy MD Facility: [facility] Start: 12-05-2023 End: 12-05-2023 ambulatory Miguel Murphy MD Facility: [facility] Start: 11-16-2023 End: 11-16-2023 ambulatory Shaikh Cira Facility:[facility] Start: 11-07-2023 End: 11-07-2023 ambulatory SHAIKH CIRA Not Available Start: 10-17-2023 Cristobal Denis MD Work Phone: [facility] Start: 10-17-2023 Cristobal Denis MD Work Phone: [facility] Start: 10-17-2023 End: 10-17-2023 ambulatory SHAIKH CIRA Not Available Start: 10-11-2023 End: 10-11-2023 ambulatory MD Shaikh Denis Work Phone: [facility] Work Phone: Start: 10-11-2023 End: 10-11-2023 Patient encounter procedure MD Shaikh Denis Work Phone: [facility] [place] Work Phone: Start: 09-08-2023 End: 09-08-2023 ambulatory MD Shaikh Denis Work Phone: [facility] Work Phone: Start: 09-08-2023 End: 09-08-2023 Patient encounter procedure MD Shaikh Denis Work Phone: [facility]Pacemaker Check Start: 09-06-2023 Patient encounter procedure Shaikh Cira [...] Start: 07-12-2022 End: 07-13-[address] LUISANA JHONSON . Facility:[facility] Start: 06-13-2022 End: 07-12-2022 ambulatory SHAIKH Kymberly DENIS Facility:[facility] Start: 05-27-2022 End: 05-28-2022 ambulatory LUIZ QUEEN . Facility:[facility] Start: 05-19-2022 End: 05-20-2022 ambulatory LUIZ QUEEN . Facility:[facility] Start: 05-13-2022 End: 06-12-2022 ambulatory SHAIKH Kymberly DENIS Facility:[facility] Start: 04-20-2022 End: 04-21-2022 ambulatory LUIZ QUEEN . Facility:[facility] Start: 04-12-2022 End: 05-12-2022 ambulatory SAHUSHAHEED PAGEFRANCY Facility:[facility] Start: 03-30-2022 End: 03-30-[address] LUISANA JOHNSON . Facility:[facility] Start: 03-12-2022 End: 04-09-2022 ambulatory SAHU Kymberly CIRA Facility:[facility] Start: 02-25-2022 End: 02-25-[address] LUISANA JOHNSON . Facility:[facility] Start: 02-24-2022 End: 02-25-[address] LUISANA JOHNSON . Facility:[facility] Start: 10-07-2021 End: 10-07-2021 ambulatory Hong Nevarez Other [employer] Other Start: 10-07-2021 Office outpatient vi sit 15 minutes Hong Nevarez [facility] G[facility] Start: 08-26-2021 End: 08-26-2021 ambulatory Hong Nevarez Other [employer] Other Start: 08-26-2021 Office outpatient ne w 45 minutes Hong Nevarez [facility] G[facility] Start: 10-11-2020 End: 10-13-2020 Evaluation and management of inpatient ZANEJennifer MCGUIRE Facility:[facility] Procedures Date Procedure Procedure Detail Performing Clinician Start: 10-16-2024 Bilateral mammography D marlen Tyrone II Work Phone: Start: 10-16-2024 Ultrasonography of axilla Renny Hansen II Work Phone: Start: 10-09-2024 CA ECHO DOPPLER COMPLETE Generic External Data Provider Start: 10-03-2024 ALL BASIC METABOLIC PANEL Generic External Data Provider Start: 10-03-2024 ALL LIPID PROFILE (FASTING) Generic External Data Provider Start: 10-02-2024 ISTAT XRAY CRE Katharina Aj Alysa herrera [employer] Work Phone: Start: 10-02-2024 CT of left shoulder with contrast Renny Hansen II Work Phone: Start: 09-19-2024 Urnls dip stick/tabl et rgnt non-auto w/o micrscp Luisana Cardozo [employer] Work Phone: Start: 08-24-2024 Complete blood count with white cell differential, automated Katharina Aj Tre [employer] Work Phone: Start: 07-24-2024 ALL CBC WITH [...] study MD Shaikh Denis Work Phone: Start: 12-12-2023 Dxa bone density mk dy 1/> sites axial skel Renny Hansen MD Work Phone: Start: 10-11-2023 XR pre/post mri xray MD Shaikh Denis Work Phone: Start: 10-11-2023 MR lumbar spine wo con MD Shaikh Denis Work Phone: Start: 09-20-2021 Cardiac pacemaker, d evice (physical object) Ortega ALEXANDER Comment on above: Dr. Martinez Start: 10-13-2020 INSERT PACE. DUAL CH AM IN CHEST SUBCU/FASCIA, OPEN DMITRIY HENNESSY Start: 10-13-2020 INSERTION OF PACEMAK ER LEAD INTO R VENTRICLE, PERC APPROACH DMITRIY HENNESSY Start: 10-13-2020 INSERTION OF PACEMAK ER LEAD INTO RIGHT ATRIUM, PERC APPROACH DMITRIY MINOO Start: 09-12-2017 Colonoscopy Shaikh Dominique eid [...] 10 years Ligation of fallopian tube M adamaroxanne PARKL Repair of musculoten dinous cuff of shoulder Ortega NILL Comment on above: right Total abdominal hyst erectomy with bilateral salpingo-oophorectomy Ortega PARKL Plan of Treatment Date Care Activity Detail Author Start: 09-12-2027 Screening for malign ant neoplasm of colon [facility] Start: 10-17-2025 Medicare Annual Well ness (AWV) Medicare Annual Wellness (AWV) [facility] Start: 01-14-2025 End: 12-15-2025 DBT Breast - left diagnostic Left diagnostic mammogram with tomosynthesis Imaging Routine Abnormal mammogram Expected: 01/14/2025, Expires: 12/15/2025 [facility] Work Phone: Comment on above: Expected: 01/14/2025 , Expires: 12/15/2025 Start: 12-17-2024 End: 12-17-2024 Patient encounter procedure 12/17/2024 11:00 AM EDT Office Visit [facility] [address] [place] [phone] Renny Hansen MD [address] [place] [address] [facility] Start: 11-05-2024 End: 11-05-2024 Patient encounter procedure [facility] Start: 10-30-2024 End: 10-30-2024 Patient encounter procedure 10/30/2024 2:15 PM EST Office Visit [facility] [address] [place] [address] Dmitriy Duque, DO [address] [place] [address] [facility] Start: 10-17-2024 End: 10-17-2024 Patient encounter procedure [facility] Comment on above: Arrived Start: 10-04-2024 End: 10-04-2024 Patient encounter procedure 10/04/2024 3:45 PM EST Consult [facility] [address] [place] [address] Dmitriy Duque, DO [address] [place] [address] [facility] Start: 09-25-2024 Patient referral [facility] Work Phone: Start: 09-19-2024 End: 09-19-2024 Patient encounter procedure 09/19/2024 3:00 PM EST Office Visit [facility] [address] [place] [address] Luisana Cardozo, [employer] [address] [facility] [address] [place] [address] [facility] Start: 09-19-2024 End: 09-19-2025 URINARY TRACT INFECTION (HTRX) URINARY TRACT INFECTION (HTRX) Lab Routine Burning with urination Expected: 09/19/2024 (Approximate), Expires: 09/19/2025 [facility] Work Phone: Comment on above: Expected: 09/19/2024 (Approximate), Expires: 09/19/2025 Start: 09-18-2024 End: 09-18-2024 Patient encounter procedure 09/18/2024 10:15 AM EST Office Visit [facility] [place] [address] [place] [address] Salome Cid DO [address] [place], [place] [id number] Neck pain on left side [facility] [address] Comment on above: Neck pain on left si de Start: 09-14-2024 End: 09-14-2024 Patient encounter procedure 09/14/2024 10:00 AM EST Office Visit [facility] [address] [facility] [address] [place] [phone] Renny Hansen MD [address] [facility] [address] [place] [address] [facility] Start: 09-10-2024 [facility] Start: 09-10-2024 [facility] Start: 09-06-2024 Medicare Annual Well ness (AWV) Medicare Annual Wellness (AWV) [facility] Start: 09-03-2024 [facility] Start: 08-31-2024 [facility] Start: 08-31-2024 [facility] Start: 08-23-2024 End: 08-23-2024 Patient encounter procedure 08/23/2024 11:45 AM EST Office Visit [facility] [address] [facility] [address] [place] [address] Renny Hansen MD [address] [facility] [address] [place] [address] [facility] Start: 08-16-2024 End: 08-16-2024 Patient encounter procedure 08/16/2024 10:30 AM EST Office Visit [facility] [address] [facility] [address] [place] [phone] Renny Hansen MD [address] [facility] [address] [place] [address] [facility] Start: 08-02-2024 End: 08-02-2025 RF Upper gastrointestinal tract and Small bowel Single view W contrast PO FL upper GI double contrast w KUB Imaging Routine Nausea Expected: 08/02/2024, Expires: 08/02/2025 [facility] Work Phone: Comment on above: Expected: 08/02/2024 , Expires: 08/02/2025 Start: 08-02-2024 End: 08-02-2024 Patient encounter procedure [facility] Comment on above: Arrived Start: 07-24-2024 End: [...] blood loss Expected: 07/24/2024 (Approximate), Expires: 07/24/2025 [facility] Comment on above: Expected: 07/24/2024 (Approximate), Expires: 07/24/2025 Start: 07-19-2024 End: 07-19-2024 Patient encounter procedure 07/19/2024 12:00 PM EST Procedure Visit [facility] [address] [place] [address] [facility] Start: 07-05-2024 End: 07-05-2025 EMG AND NERVE CONDUCTION STUDY EMG AND NERVE CONDUCTION STUDY Neurology Routine Neck pain on left side Radicular pain in left arm Expected: 07/05/2024 (Approximate), Expires: 07/05/2025 [facility] Healthcare Comment on above: Expected: 07/05/2024 (Approximate), Expires: 07/05/2025 Start: 07-05-2024 End: 09-04-2025 MG Breast - bilateral Screening Bilateral screening mammogram Imaging Routine Breast screening Expected: 07/05/2024 (Approximate), Expires: 09/04/2025 [facility] Work Phone: Comment on above: Expected: 07/05/2024 (Approximate), Expires: 09/04/2025 Start: 07-05-2024 End: 07-05-2024 Patient encounter procedure [facility] Comment on above: Arrived Start: 05-31-2024 End: 05-31-2024 Patient encounter procedure 05/31/2024 1:30 PM EDT [facility] [address] [place] [address] Monster Calvillo NP [address] [place] [address] Arrived [facility] Comment on above: Arrived Start: 05-22-2024 End: 08-21-2024 C reactive protein [Mass/volume] in Serum or Plasma C-REACTIVE PROTEIN Lab Routine 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) Expected: 05/22/2024, Expires: 08/21/2024 [facility] Comment on above: Expected: 05/22/2024 , Expires: 08/21/2024 Start: 05-22-2024 End: 08-21-2024 CBC W Auto Differential panel - Blood COMPLETE BLOOD COUNT AND DIFFERENTIAL Lab Routine 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) Expected: 05/22/2024, Expires: 08/21/2024 [facility] Comment on above: Expected: 05/22/2024 , Expires: 08/21/2024 Start: 05-22-2024 End: 08-21-2024 Erythrocyte sedimentation rate SEDIMENTATION RATE, WESTERGREN Lab Routine 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) Expected: 05/22/2024, Expires: 08/21/2024 [facility] Comment on above: Expected: 05/22/2024 , Expires: 08/21/2024 Start: 05-22-2024 End: 05-22-2024 Patient encounter procedure 05/22/2024 2:00 PM EDT Office Visit [facility] [address] [place] [phone] Monster Calvillo NP [address] [place] [phone] [facility] Start: 05-13-2024 Covid-19 Vaccine ( season) Covid-19 Vaccine ( season) [facility] Start: 05-13-2024 Influenza vaccination Influenza Vacc ine (#1) [facility] Start: 05-09-2024 End: 05-09-2024 Patient encounter procedure 05/09/2024 10:00 AM EDT Office Visit [facility] [address] [place] [address] Jr. Sakina Cardenas DO [address] [place] [address] [facility] Start: 11-07-2023 End: 11-07-2023 Patient encounter procedure 11/07/2023 2:30 PM EST Office Visit [facility] [address] [place] [phone] Shaikh Denis MD [address] [place] [phone] [facility] Start: 10-17-2023 End: 10-17-2023 Patient encounter procedure 10/17/2023 10:15 AM EST Office Visit [facility] [address] [place] [address] Shaikh Denis MD [address] [place] [phone] Arrived [facility] Comment on above: Arrived Start: 09-12-2023 Advance Directive Discussion Advance Directive Discussion [facility] Start: 11-30-2012 Screening for osteoporosis Bone Dens ity Screening [facility] Start: 11-30-1997 Shingrix Vaccine (1 of 2) Reyes grix Vaccine (1 of 2) [facility] Start: 11-30-1992 Diabetes Screening Diabetes Screenin g [facility] Start: 11-30-1966 Urine microalbumin profile DTa P,Tdap,Td Vaccine (1 - Tdap) [facility] Start: 11-30-1965 Anxiety Screening Anxiety Screening [facility] Start: 11-30-1965 Depression Screening Depression Scre ening [facility] Start: 11-30-1965 Hepatitis C screening Hepatitis C Sc reening [facility] Start: 1947 Screening for malign ant neoplasm of colon [facility] CBC W Auto Different ial panel - Blood CBC auto differential Lab Routine 10/02/2024 11:54 AM EST [facility] Work Phone: Comprehensive metabo lic 2000 panel - Serum or Plasma [facility] CT Shoulder - left W contrast IV 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) 1 Occurrences starting 05/22/2024 until 06/21/2025 [facility] Work Phone: Comment on above: 1 Occurrences starti ng 05/22/2024 until 06/21/2025 Iron and Iron bindin g capacity panel - Serum or Plasma Iron and TIBC Lab Routine 08/24/2024 2:30 PM EST [facility] [employer] Work Phone: Iron and Iron bindin g capacity panel - Serum or Plasma Iron and TIBC Lab STAT 10/02/2024 11:54 AM EST [facility] Work Phone: Patient referral [facility] Work Phone: [facility] Immunizations Immunization Date Immunization Notes Care Provider Fa cili 09-19-2024 Influenza, High-dose Seasonal, Quadrivalent, Preservative Free Luisana Cardozo [employer] Work Phone: [facility] 08-25-2023 influenza virus vacc ine, unspecified formulation Ortega ALEXANDER [facility] [place] 08-25-2023 Influenza, Seasonal, Quadrivalent, Adjuvanted Shaikh Cira [facility] Work Phone: [facility] [facility] 08-25-2023 RSV, recombinant, protein subunit RSVpreF, adjuvant reconstitu, 120mcg/0.5mL, PF (Arexvy) Shaikh Cira CUBA Work Phone: [facility] 07-08-2022 influenza virus vacc ine, unspecified formulation Ortega [facility] 07-08-2022 Influenza, Seasonal, Quadrivalent, Adjuvanted Shaikh Cira CUBA Work Phone: [facility] 08-20-2021 influenza virus vacc ine, unspecified formulation Orte[facility] 08-20-2021 Influenza, Seasonal, Quadrivalent, Adjuvanted Shaikh Cira CUBA Work Phone: [facility] 08-20-2021 pneumococcal polysaccharide vaccine, 23 valent Ortega [facility] 11-18-2020 SARS-CoV-2 (COVID-19 ) mRNA-1273 vaccine Ortega [facility] 10-20-2020 SARS-CoV-2 (COVID-19 ) mRNA-1841 vaccine Orte[facility] 08-04-2020 influenza virus vacc ine, unspecified formulation Orte[facility] 08-04-2020 Influenza, Seasonal, Quadrivalent, Adjuvanted Shaikh Cira CUBA Work Phone: [facility] 08-04-2020 pneumococcal conjuga te vaccine, 13 valent Ortega [facility] 08-06-2019 influenza virus vacc ine, unspecified formulation Ortega [facility] 08-06-2019 influenza, high dose seasonal, preservative-free Shaikh Cira CUBA Work Phone: [facility] 07-05-2017 influenza virus vacc ine, unspecified formulation Ortega [facility] 07-05-2017 pneumococcal conjuga te vaccine, 13 valent Orte[facility] 07-05-2017 Seasonal trivalent influenza vaccine, adjuvanted, preservative free Shaikh Cira CUBA Work Phone: [facility] 06-29-2016 influenza virus vacc ine, unspecified formulation Orte[facility] 06-29-2016 Seasonal trivalent influenza vaccine, adjuvanted, preservative free Shaikh Cira CUBA Work Phone: [facility] 06-25-2015 influenza virus vacc ine, unspecified formulation [facility]te[facility] 06-25-2015 influenza, injectabl e, quadrivalent, contains preservative Shaikh Cira CUBA Work Phone: [facility] 06-12-2015 influenza virus vacc ine, unspecified formulation [facility] 06-12-2015 seasonal influenza, intradermal, preservative free Shaikh Cira CUBA Work Phone: [facility] 07-12-2014 influenza virus vacc ine, unspecified formulation [facility] 07-12-2014 influenza, injectabl e, quadrivalent, contains preservative Shaikh Cira CUBA Work Phone: [facility] 08-07-2013 influenza virus vacc ine, unspecified formulation [facility] 08-07-2013 influenza, seasonal, injectable Shaikh Cira CUBA Work Phone: [facility] Payers Date Payer Category Payer Medicare (Managed Care) [employer] [place] [employer] [id number] 2024 Unknown [id number] 2023 Medicaid [employer] MEDICARE A DVANTAGE [id number] 2023 Private Health Insurance 2023 Private Health Insurance [facility] [id number] 2023 Self-pay [id number] 2023 Managed Care HMO (unspecified) AETZENAIDA FRANZ [id number] 2023-Present [address] [place] [address] HMO [id number] 2007 Medicare [id number] 1959 Medicare [id number] 1959 Private Health Insurance [facility] [id number] 1945 Unknown [id number] 2.16.840.1.112398.3.579.2. 647 1947 Unknown [id number] 2.16.840.1.229915.3.579.2. 593 1947 Unknown [id number] 2.16.840.1.184667.3.579.2. 593 1947 Unknown [id number] 2.16.840.1.840804.3.579.2. 593 1947 Unknown [id number] 2.16.840.1.107149.3.579.2. 593 1947 Unknown [id number] 2.16.840.1.057442.3.579.2. 593 1947 Unknown [id number] 2.16.840.1.464544.3.579.2. 593 1947 Unknown [id number] 2.16.840.1.416597.3.579.2. 593 1947 Unknown [id number] 2.16.840.1.479651.3.579.2. 593 1947 Unknown [id number] 2.16.840.1.008323.3.579.2. 593 1947 Unknown [id number] 2.16.840.1.371281.3.579.2. 593 1947 Unknown [id number] 2.16.840.1.876322.3.579.2. 593 1947 Unknown [id number] 2.16.840.1.546985.3.579.2. 593 1947 Unknown [id number] 2.16.840.1.543753.3.579.2. 593 1947 Unknown [id number] 2.16.840.1.344409.3.579.2. 593 1947 Unknown [id number] 2.16.840.1.900412.3.579.2. 593 1947 Unknown [id number] 2.16.840.1.396521.3.579.2. 593 1947 Unknown [id number] 2.16.840.1.271946.3.579.2. 593 1947 Unknown [id number] 2.16.840.1.661336.3.579.2. 593 1947 Unknown [id number] 2.16.840.1.765294.3.579.2. 593 1947 Unknown [id number] 2.16.840.1.997646.3.579.2. 593 1947 Unknown [id number] 2.16.840.1.364964.3.579.2. 593 1947 Unknown [id number] 2.16.840.1.652354.3.579.2. 593 1947 Unknown [id number] 2.16.840.1.599882.3.579.2. 593 1947 Unknown [id number] 2.16.840.1.896571.3.579.2. 593 1947 Unknown [id number] 2.16.840.1.877796.3.579.2. 593 1947 Unknown [id number] 2.16.840.1.484510.3.579.2. 593 1947 Unknown [id number] 2.16.840.1.386522.3.579.2. 727 1947 Unknown [id number] 2.16.840.1.407902.3.579.2. 727 1947 Unknown [id number] 2.16.840.1.418847.3.579.2. 196 1947 Unknown [id number] 2.16.840.1.049918.3.579.2. 196 1947 Unknown [id number] 2.16.840.1.481477.3.579.2. 196 1947 Unknown [id number] 2.16.840.1.285952.3.579.2. 196 1947 Unknown [id number] 2.16.840.1.064609.3.579.2. 196 1947 Unknown [id number] 2.16.840.1.748912.3.579.2. 196 1947 Unknown [id number] 2.16.840.1.785037.3.579.2. 1259 1947 Unknown [id number] 2.16.840.1.449574.3.579.2. 1259 1947 Unknown [id number] 2.16.840.1.649092.3.579.2. 1259 1947 Unknown [id number] 2.16.840.1.499062.3.579.2. 1258 1947 Unknown [id number] 2.16.840.1.321646.3.579.2. 1258 1947 Unknown [id number] 2.16.840.1.612425.3.579.2. 1258 1947 Unknown [id number] 2.16.840.1.813516.3.579.2. 1258 1947 Unknown [id number] 2.16.840.1.559979.3.579.2. 1258 1947 Unknown [id number] 2.16.840.1.636369.3.579.2. 1258 1947 Unknown [id number] 2.16.840.1.925872.3.579.2. 1258 1947 Unknown [id number] 2.16.840.1.961708.3.579.2. 1258 1947 Unknown [id number] 2.16.840.1.600595.3.579.2. 1258 1947 Unknown [id number] 2.16.840.1.832407.3.579.2. 1258 1947 Unknown [id number] 2.16.840.1.490489.3.579.2. 1258 1947 Unknown [id number] 2.16.840.1.770660.3.579.2. 1258 1947 Unknown [id number] 2.16.840.1.226887.3.579.2. 1258 1947 Unknown [id number] 2.16.840.1.506326.3.579.2. 1258 1947 Unknown [id number] 2.16.840.1.232620.3.579.2. 1258 1947 Unknown [id number] 2.16.840.1.090204.3.579.2. 1259 Medicare Medicare Outpatient [id number] Unknown [place] [facility] [id number] Unknown [id number] 2.16.840.1.466867.3.579.2. 531 Unknown [id number] 2.16.840.1.005082.3.579.2. 531 Unknown [id number] 2.16.840.1.679162.3.579.2. 531 Unknown [id number] 2.16.840.1.585690.3.579.2. 531 Unknown [id number] 2.16.840.1.886579.3.579.2. 531 Unknown [id number] 2.840.1.969009.3.579.2. 531 Unknown [id number] 2.16.840.1.989707.3.579.2. 531 Social History Date Type Detail Facility Start: 08-30-2023 End: 10-10-2024 Sex Assigned At [facility] Start: 1945 Sex Assigned At Female [facility] Start: 08-18-2023 End: 10-17-2024 Tobacco smoking status [facility] Ex-smoker [facility] Start: 09-12-1967 History of tobacco use Current smoker [facility] Start: 09-12-1967 History of tobacco use Cigarette Smoker [facility] Start: 09-02-2023 Alcohol intake Not Asked [facility] Start: 08-30-2023 End: 10-10-2024 History of Social function [facility] Within the last year , have you been afraid of your partner or ex-partner? No [facility] How often do you att end worship or hoahaoism services? Patient refused [facility] Do you belong to any clubs or organizations such as worship groups, unions, fraternal or athletic groups, or school groups? Yes [facility] Are you now , , , , never or living with a partner? [facility] Do you feel stress - tense, restless, nervous, or anxious, or unable to sleep at night because your mind is troubled all the time - these days [OSQ] Not at all [facility] (I/We) worried wheth er (my/our) food would run out before (I/we) got money to buy more. DK or Refused [facility] Start: 08-18-2023 Alcohol Comment (Audit-C) : Negative [facility] Start: 1945 Sex Assigned At Not on file [facility] Start: 04-27-2013 End: 05-22-2024 Tobacco smoking status NHIS Never smoked tobacco (finding) [facility] Start: 05-22-2024 Tobacco use and exposure Smokeless tobacco non-user [facility] Start: 05-22-2024 End: 10-17-2024 Alcoholic beverage intake Current drinker of alcohol (finding) [facility] History of tobacco use Passive smoker [facility] Start: 11-07-2023 Alcohol Comment OCCASSIONAL [facility] Start: 09-25-2024 End: 10-17-2024 Sex Female (finding) [facility] Goals Date Patient Goal Desired Activity /State Functional Status Date Assessment Result Facility 03-02-2024 Functional Status N/A [facility] [place] Clinical Notes 08-26-2021 to 10-17-2024 Renny Hansen MD - 10/17/2024 11:30 AM Shilpa Duque, DO - 10/04/2024 2:45 PM Lui Cardozo NP - 09/19/2024 3:00 PM ESTPatient Kaden Cid, DO - 09/18/2024 10:15 AM EST Note Date & Type Note Facility 10-17-2024 History of Present illness Narrative Images from the original note were not included. Subjective : Chief Complaint: Breann Starks is an 78 y.o. female here for an annual wellness visit. I have reviewed and reconciled the history and medication list with the patient today. Current Outpatient Medications Medication Sig Dispense Refill acetaminophen (Tylenol) 500 MG tablet Take 1,000 mg by mouth every 6 (six) hours if needed for mild pain apixaban (Eliquis) 5 MG tablet Take 1 tablet (5 mg) by mouth in the morning and 1 tablet (5 mg) before bedtime. 180 tablet 1 baclofen (Lioresal) 10 MG tablet Take 10 mg by mouth in the morning and 10 mg in the evening and 10 mg before bedtime. cholecalciferol (Natural Vitamin D-3) 5,000 Units tablet Take 1 tablet (5,000 Units) by mouth Daily 90 tablet 1 flecainide (Tambocor) 100 MG tablet Take 100 mg by mouth every 12 (twelve) hours HYDROcodone-acetaminophen (Molalla) 5-325 MG tablet Take 1 tablet by mouth in the morning and 1 tablet in the evening and 1 tablet before bedtime. ipratropium-albuterol (Duo-Neb) 0.5-2.5 mg/3 mL nebulizer solution Take 3 mL by nebulization in the morning and 3 mL at noon and 3 mL in the evening and 3 mL before bedtime. Multiple Vitamins-Minerals (CENTRUM SILVER 50+WOMEN PO) Take 1 tablet by mouth in the morning. omeprazole (PriLOSEC) [address] capsule Take 1 capsule (40 mg) by mouth Daily 90 capsule 1 spironolactone (Aldactone) 50 MG tablet Take 50 mg by mouth in the morning. verapamil ER (Verelan) 180 MG 24 hr capsule Take 360 mg by mouth in the morning. No current facility-administered medications for this visit. Review of Systems List of current healthcare providers: Patient Care Team: Renny Hansen MD as PCP - General (Internal Medicine) Medicare Annual Visit Over the past 2 weeks, how often have you been bothered by any of the following problems? Little interest or pleasure in doing things: Not at all Feeling down, depressed, or hopeless: Not at all Patient Health Questionnaire-2 Score: 0 [place] Fall Risk History of Falling, Immediate or Within 3 Months: No Secondary Diagnosis: No Ambulatory Aid: Walks without aid/bedrest/nurse assist Health Risk Assessment Form Do you need help eating, bathing, using the toilet, dressing, or getting around your home?: No Can you prepare your own meals?: Yes Can you do your own housework without help?: Yes Can you shop for groceries or clothes without help?: Yes Do you exercise for about 20 minutes 3 or more days a week?: No How confident are you that you can control and manage most of your health problems?: Very confident Can you mange your money, credit cards and accounts, pay bills and taxes?: Yes Cognitive Screening Three Word Registration: Apple, Watch, Keturah Clock Drawing: Normal Clock - 2 Three Word Recall: All 3 words correct - 3 Total Score (0-5 Points): 5 Pain Assessment Pain Score: 8 Advance Care Planning Do you have a living will?: No Do you have a medical power of finance attorney?: No Objective : BP 138/76 Pulse 61 Ht 4' 11 Wt 219 lb SpO2 97% BMI 44.23 kg/m No results found. Physical Exam Vitals reviewed. Constitutional: General: She [...] rebound. Hernia: No hernia is present. Musculoskeletal: Right shoulder: Swelling and tenderness present. Decreased range of motion. Cervical back: Normal range of motion. Left lower le+ Edema present. Comments: Erythema and edema in left shoulder region Lymphadenopathy: Cervical: No cervical adenopathy. Skin: General: Skin is warm and dry. Capillary Refill: Capillary refill takes less than 2 seconds. Neurological: General: No focal deficit present. Mental Status: She is alert and oriented to person, place, and time. Psychiatric: Mood and Affect: Mood normal. Behavior: Behavior normal. Assessment/Plan : The following health maintenance schedule was reviewed with the patient and provided in printed form in the after visit summary: Health Maintenance Topic Date Due Medicare Annual Wellness (AWV) 09/06/2024 Influenza Vaccine Completed Pneumococcal Vaccine: 65+ Years Completed Colorectal Cancer Screening Discontinued Advance Care Planning Patient agreed to discuss advance care planning at today's wellness visit. We discussed that an advance directive is a legal document that only goes into effect if the patient is incapacitated and unable to speak for himself or herself. This would help healthcare providers to ensure that the patient gets the care that he or she wishes to receive. The goal is to provide a patient with the best possible quality of life. Encouraged patient to obtain a living will and durable power of finance attorney for healthcare. We discussed telling kitchen people about their advance directives such as close family members, and requested a copy to scan into the patient's EHR. An advance directive packet was offered to the patient. Assessment/Plan Diagnoses and all orders for this visit: Routine general medical examination at health care facility ACP (advance care planning) Acute non-recurrent sinusitis, unspecified location - cefdinir (Omnicef) 300 MG capsule; Take 1 capsule (300 mg) by mouth in the morning and 1 capsule (300 mg) before bedtime. Do all this for 7 days. Enlarged lymph nodes in armpit Injury of left shoulder and upper arm, sequela - Ambulatory referral to Orthopaedic Surgery; Future Mastitis, left, acute Left shoulder pain, unspecified chronicity - Ambulatory referral to Orthopaedic Surgery; Future Abnormal mammogram - Left diagnostic mammogram with tomosynthesis; Future Phlebitis of left upper extremity - hydrocortisone ([place]) 0.2 % cream; Apply topically 2 (two) times a day Orders Placed This Encounter Procedures DEXA bone density This order was created through External Result Entry Electronically signed by Renny Hansen MD on October 17, 2024 documented in this encounter [facility] 10-16-2024 Radiology Diagnostic study note [facility] [place] [address] Ultrasound Report Signed Patient: Breann Starks MR#: [id number] : 1945 Acct:[id number] Age/Sex: 78 / F ADM Date: 5 Loc: [facility] Room: Type: [facility] Attending Dr: Dmitriy Duque DO Ordering Provider: Dmitriy Duque DO Date of Service: 10/16/24 US/US axilla: R92.8 ([id number]) MM/MM diagnostic mammo BI w/CAD: ENLARGED LT AXILLARY LYMPH NODE Copies to: Dmitriy Duque DO~ CLINICAL DATA: Abnormal lymph node seen on CT left shoulder study. BilateralDIAGNOSTIC MAMMOGRAM - WITH TOMOSYNTHESIS AND CAD , rightLIMITED BREASTULTRASOUND COMPARISON:CT left shoulder 10/02/2024 Tomosynthesis imaging was obtained using low-dose digital technique. This examination was reviewed with the aid of CAD. Additional ultrasound imaging was also obtained. Mammogram: The breasts are composed of scattered fibroglandular densities. Patient positioning is suboptimal due to patient condition. No new areas of architectural distortion, worrisome masses or suspicious microcalcifications. A prominent vein is seen involving the upper outer aspect of the left breast Ultrasound: Imaging of the left axilla demonstrates multiple prominent lymph nodes present with diffuse cortical thickening largest measures 2.8 cm in greatest axial dimension. No mass is noted. Findings of the mammogram and ultrasound discussed with the patient as well as her . Physical examination of the patient demonstrates erythema/redness in the region of the left shoulder/proximal upper arm in the area the patient's prior surgery/biceps tendon repair. The patient was then brought back to the ultrasound suite additional imaging of the area of redness involving the left upper extremity demonstrates no underlying fluid collection to suggest abscess. The veins within the area appear patent and compressible. US/US axilla IMPRESSION: NO MAMMOGRAPHIC OR ULTRASOUND EVIDENCE OF MALIGNANCY. PROMINENT VEIN INVOLVING THE UPPER OUTER QUADRANT OF THE LEFT BREAST WITH PROMINENT AXILLARY LYMPH NODES.GIVEN THE SKIN CHANGES, A THROMBOPHLEBITIS IS SUSPECTED POSSIBLY MONDOR' S DISEASE. CELLULITIS CANNOT BE EXCLUDED. A TRIAL OF ANTIBIOTICS IS SUGGESTED. REPEAT ULTRASOUND OF THE LEFT AXILLA AFTER THERAPY IS SUGGESTED TO CONFIRM RESOLUTION. RESULT CODE: 3 Probably Benign Finding Short Term Follow-Up DENSITY CODE: 2 (approximately 25-50% glandular) FOLLOW UP: 3M The false-negative rate of mammography is approximately 10-percent. Management of a palpable abnormality must be based on clinical grounds. Impression dictated by: Francisco J Benton Jr., DMeenaOMeena10/16/2024 2:20 PM Dictation Location: [facility] Tech: Ghazal Wilson; Kadi Barber Transcribed By: STAR 10/16/24 1420 Dictated By: Francisco J Benton Jr, DO 10/16/24 1343 Signed By: 10/16/24 1420 [facility] 10-04-2024 History of Present illness Narrative Images from the original note were not included. Breann Starks 1945 Breann Starks is a 78 y.o. female presents with chief complaint of Consult (Lt axillary lymphadenopathy) HPI: HPI patient was vigorously scratching her back with a back supervising broker on February 15 and the next day she had severe shoulder pain. She developed bruising and some redness at her shoulder and biceps which occurred from that and has never gone away since. She has a history of a reverse shoulder replacement and she saw her orthopedist and they did not see that any hardware has become misplaced. She does have a lot of pain with it and she can not really use the shoulder very well. She had a CT scan in June where a 1.5 cm lymph node was noted. She had a repeat CT scan that still showed about the same enlargement 1.3 cm of the lymph node. She can not feel the lymph nodes. She has not noticed any breast issues breast pain. She has not got a mammogram was ordered however she can not do it because she has so much pain in her shoulder. She has not having any night sweats or weight loss without trying to or severe fatigue. She was anemic but she got iron infusion, she said she had a negative colonoscopy. . The fatigue improved after the iron infusion. Ever since her pacemaker she does have more veins at her left breast visible. She has not noticed any breast masses or lumps or bumps. She has not having any skin changes of the breast. She has not having any nipple discharge. SUBJECTIVE: MEDICATIONS: ALLERGIES Current Outpatient Medications Medication Instructions acetaminophen (TYLENOL) 1,000 mg, Every 6 hours PRN apixaban (ELIQUIS) 5 mg, Oral, 2 times daily baclofen (LIORESAL) 10 mg, 3 times daily cholecalciferol (NATURAL VITAMIN D-3) 5,000 Units, Oral, Daily ferrous sulfate 325 mg, Every other day flecainide (TAMBOCOR) 100 mg, Every 12 hours furosemide (LASIX) 40 mg, Oral, Daily HYDROcodone-acetaminophen (Molalla) 5-325 MG tablet 1 tablet, 3 times daily Multiple Vitamins-Minerals (CENTRUM SILVER 50+WOMEN PO) 1 tablet, Daily omeprazole (PRILOSEC) 40 mg, Oral, Daily spironolactone (ALDACTONE) 25 mg, Oral, Daily verapamil ER (VERELAN) 360 mg, Daily RT vitamin C 100 mg, Daily Allergies Allergen Reactions Nsaids Other Reaction(s): HEART ISSUES Digoxin Rash Wound Dressing Adhesive Rash PAST MEDICAL HISTORY: SOCIAL HISTORY SURGICAL HISTORY: Past Medical History: Diagnosis Date Anemia Atrial fibrillation ([facility]) Centrilobular emphysema ([facility]) COPD (chronic obstructive pulmonary disease) ([facility]) COPD exacerbation ([facility]) 10/17/2023 Coronary artery disease ([facility]) Diastolic dysfunction Essential hypertension ([facility]) History of tobacco abuse Nonalcoholic steatohepatitis (LOJA) Obstructive sleep apnea Osteoarthritis Paroxysmal atrial fibrillation ([facility]) Peptic ulcer disease Secondary pulmonary arterial hypertension ([facility]) Sick sinus syndrome ([facility]) Spinal stenosis, lumbar region with neurogenic claudication SVT (supraventricular tachycardia) ([facility]) URTI (acute upper respiratory infection) Vertigo Vitamin D deficiency Social History Tobacco Use Smoking status: Former Types: Cigarettes Passive exposure: Past Vaping Use Vaping status: Never Used Substance Use Topics Alcohol use: Yes Comment: OCCASSIONAL Drug use: Never Past Surgical History: Procedure Laterality Date APPENDECTOMY HYSTERECTOMY INSERT / REPLACE / REMOVE PACEMAKER OTHER SURGICAL HISTORY Abalation REVERSE TOTAL SHOULDER ARTHROPLASTY Left 12/29/2021 DR AMIN ROTATOR CUFF REPAIR Right SHOULDER ARTHROSCOPY Bilateral (L) , (R) x3 TOTAL KNEE ARTHROPLASTY Bilateral TRIGGER FINGER RELEASE Left RF REVIEW OF SYMPTOMS: Review of Systems Constitutional: Negative for appetite change, fatigue and fever. HENT: Negative for trouble swallowing. Breasts: Negative for breast mass and breast discharge. Respiratory: Negative for cough and shortness of breath. Cardiovascular: Negative for chest pain. Gastrointestinal: Negative for abdominal pain. Genitourinary: Negative for hematuria. Musculoskeletal: Positive for arthralgias and joint swelling. Negative for back pain. Skin: Negative for wound. Neurological: Negative for seizures. OBJECTIVE: Visit Vitals Smoking Status Former Physical Exam Exam conducted with a production supply equipment tender present. Constitutional: Appearance: Normal appearance. HENT: Head: Atraumatic. Eyes: General: No scleral icterus. Cardiovascular: Rate and Rhythm: Regular rhythm. Pulmonary: Effort: No respiratory distress. Chest: Comments: Patient has a pendulous breast. She does have greater varicosities on the upper left chest than the right. On 4 quadrant exam of both breasts there is no dominant masses no skin change in his there is no nipple discharge. There is no obvious axillary lymphadenopathy. Exam is challenging as she can not get up on the exam table and she can not extend her arm. Abdominal: General: There is no distension. Tenderness: There is no abdominal tenderness. Musculoskeletal: Comments: Patient can hardly abduct her left arm away from her side. She can not put her hand behind her head. She does have some bruising and telangiectasia at the biceps and shoulder. Skin: Findings: No bruising. Neurological: Mental Status: She is alert. Gait: Gait normal. ASSESSMENT AND PLAN: Assessment/Plan Diagnoses and all orders for this visit: Enlarged lymph nodes in armpit Mildly enlarged lymph node left axilla, previously was 1.[address] scan now is 1.3 cm. Likely related to inflammatory changes from her muscle/ joint injury. Mammography has not been done and patient says that she can not get 1 done. I discussed with the patient and her options. We will get an ultrasound evaluation of left axilla and ultrasound-guided biopsy if lymph nodes abnormal. She will need to be off her Eliquis for 2 days. It is possible that this ultrasound exam may not be able to be done very well if she can not move her shoulder. She understands and would like to proceed with that. I discussed with him in detail that this is to rule out concern about the lymph node appearance not to solve the problem of her debilitating shoulder pain. She needs to continue with her current doctors on that documented in this encounter [facility] 09-24-2024 Note [place] Cardiology - [facility] Subjective Breann Starks is a 78 y.o. year old female patient being seen for Atrial Fibrillation (Denies palpitations, lightheadedness/syncope, and bleeding on Eliquis. ), Congestive Heart Failure, severe pulmonary hypertension (Denies chest pain and SOB. ), and Edema (NOT taking lasix currently due to no LE edema. ) Patient Active Problem List Diagnosis Disorder of bursae of shoulder region Chronic obstructive lung disease (CMS/HCC) Atherosclerosis of [place] coronary artery of [place] heart without angina pectoris Diaphragmatic hernia Edema Essential hypertension Malaise and fatigue Obesity Paroxysmal supraventricular tachycardia (CMS/HCC) Premature beats Sinus node dysfunction (CMS/HCC) Vitamin D deficiency Venous insufficiency Steatosis [...] subsequent Cardiac pacemaker in situ Diastolic dysfunction Pulmonary hypertension (CMS/HCC) Obstructive sleep apnea syndrome Abnormal CT scan, neck Acute on chronic diastolic (congestive) heart failure (CMS/HCC) 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 Axillary lymphadenopathy CHF (congestive heart failure) (CMS/HCC) Degenerative disc disease, cervical Gastroesophageal reflux disease without esophagitis History of ulcer disease Iron deficiency anemia due to chronic blood loss Irritable bowel syndrome Positive fecal occult blood test Sigmoid diverticulosis HPI 09/24/2024 07/18/2024 The patient is with history of atrial [...] positive findings noted above in the history Past Medical History: Diagnosis Date Abnormal ECG Arrhythmia Atrial fibrillation (CMS/HCC) Coronary artery disease Hypertension Past Surgical History: Procedure Laterality Date FOOT SURGERY X2 HAND SURGERY HYSTERECTOMY INSERT / REPLACE / REMOVE PACEMAKER 10/13/2020 SHOULDER SURGERY X4 TOTAL KNEE ARTHROPLASTY Bilateral TRIGGER FINGER RELEASE 08/12/2015 TUBAL LIGATION Family History Adopted: Yes Family history unknown: Yes Social History Tobacco Use Smoking status: Former Current packs/day: 0.00 Types: Cigarettes Start date: 1956 Quit date: 1999 Years since quittin.0 Smokeless tobacco: Never Substance Use Topics Alcohol use: Yes Comment: OCCASIONAL Drug use: Never Allergies No Known Allergies Medications Current Outpatient Medications: baclofen (Lioresal) 10 mg tablet, Take 1 tablet by mouth every 6 (six) hours during the day., Disp: , Rfl: cholecalciferol (Vitamin D-3) 125 MCG (5000 UT) capsule, Take 1 tablet by mouth in the morning., Disp: , Rfl: Eliquis 5 mg tablet, Take 5 mg by mouth every 12 (twelve) hours., Disp: , Rfl: flecainide (Tambocor) 100 mg tablet, TAKE 1 TABLET (100 MG) BY MOUTH EVERY 12 (TWELVE) HOURS., Disp: 180 tablet, Rfl: 3 omeprazole (PriLOSEC) [address] capsule, Take 1 capsule by mouth in the morning., Disp: , Rfl: spironolactone (Aldactone) 25 mg tablet, TAKE 1 TABLET BY MOUTH EVERY DAY, Disp: 90 tablet, Rfl: 3 verapamil ER (Veralan) 180 mg 24 hr capsule, TAKE 2 CAPSULES BY MOUTH IN THE MORNING., Disp: 180 capsule, Rfl: 3 furosemide (Lasix) 40 mg tablet, Take 1 tablet (40 mg) by mouth in the morning and at bedtime. (Patient not taking: Reported on 09/24/2024), Disp: 180 tablet, Rfl: 3 Objective Visit Vitals BP 145/70 (BP Location: Right wrist, Patient Position: Sitting) Pulse 60 Ht 1.499 m (4' 11 ) Wt 99.8 kg (220 lb) SpO2 97% BMI 44.43 kg/m??? Smoking Status Former BSA 2.04 m??? Physical e (more content not included)... [facility] 09-19-2024 History of Present illness Narrative Images from the original note were not included. Subjective Patient ID: Breann Starks is a 78 y.o. female who presents for urinary issues. Breann presents today for urinary issues. With burning for over 2 weeks. She did take Azo but didn't help much. Current Outpatient Medications on File Prior to Visit Medication Sig Dispense Refill acetaminophen (Tylenol) 500 MG tablet Take 1,000 mg by mouth every 6 (six) hours if needed for mild pain apixaban (Eliquis) 5 MG tablet Take 1 tablet (5 mg) by mouth in the morning and 1 tablet (5 mg) before bedtime. 180 tablet 1 Ascorbic Acid (vitamin C) 100 MG tablet Take 100 mg by mouth in the morning. (Patient not taking: Reported on 09/18/2024) baclofen (Lioresal) 10 MG tablet Take 10 mg by mouth in the morning and 10 mg in the evening and 10 mg before bedtime. cholecalciferol (Natural Vitamin D-3) 5,000 Units tablet Take 1 tablet (5,000 Units) by mouth Daily 90 tablet 1 ferrous sulfate 325 (65 Fe) MG tablet Take 325 mg by mouth every other day (Patient not taking: Reported on 09/18/2024) flecainide (Tambocor) 100 MG tablet Take 100 mg by mouth every 12 (twelve) hours furosemide (Lasix) 40 MG tablet TAKE 1 TABLET BY MOUTH EVERY DAY (Patient not taking: Reported on 09/18/2024) 90 tablet 0 HYDROcodone-acetaminophen (Molalla) 5-325 MG tablet Take 1 tablet by mouth in the morning and 1 tablet in the evening and 1 tablet before bedtime. (Patient not taking: Reported on 09/18/2024) Multiple Vitamins-Minerals (CENTRUM SILVER 50+WOMEN PO) Take 1 tablet by mouth in the morning. omeprazole (PriLOSEC) [address] capsule Take 1 capsule (40 mg) by mouth Daily 90 capsule 1 spironolactone (Aldactone) 25 MG tablet TAKE 1 TABLET BY MOUTH EVERY DAY 90 tablet 1 verapamil ER (Verelan) 180 MG 24 hr capsule Take 360 mg by mouth in the morning. [DISCONTINUED] apixaban (Eliquis) 5 MG tablet Take 1 tablet (5 mg) by mouth in the morning and 1 tablet (5 mg) before bedtime. 180 tablet 1 No current facility-administered medications on file prior [...] COPD exacerbation (CMS/HCC) 10/17/2023 Coronary artery disease ([facility]/HCC) Diastolic dysfunction Essential hypertension ([facility]/HCC) History of tobacco abuse Nonalcoholic steatohepatitis (LOJA) Obstructive sleep apnea Osteoarthritis Paroxysmal atrial fibrillation (CMS/HCC) Peptic ulcer disease Secondary pulmonary arterial hypertension (CMS/HCC) Sick sinus syndrome (CMS/HCC) Spinal stenosis, lumbar region with neurogenic claudication SVT (supraventricular tachycardia) ([facility]/HCC) URTI (acute upper respiratory infection) Vertigo Vitamin D deficiency Past Surgical History: Procedure Laterality Date APPENDECTOMY HYSTERECTOMY INSERT / REPLACE / REMOVE PACEMAKER OTHER SURGICAL HISTORY Abalation REVERSE TOTAL SHOULDER ARTHROPLASTY Left 12/29/2021 DR AMIN ROTATOR CUFF REPAIR Right SHOULDER ARTHROSCOPY Bilateral (L) , (R) x3 TOTAL KNEE ARTHROPLASTY Bilateral TRIGGER FINGER RELEASE Left RF Visit Vitals Smoking Status Former Review of Systems Eyes: Negative. Respiratory: Negative. Cardiovascular: Negative. Gastrointestinal: Negative. Genitourinary: Positive for frequency and hematuria. Endocrine: Negative. Objective Physical Exam Vitals reviewed. Constitutional: Appearance: She is obese. HENT: Head: Normocephalic and atraumatic. Right Ear: External ear normal. Left Ear: External ear normal. Nose: Nose normal. Mouth/Throat: Mouth: Mucous membranes are moist. Eyes: Conjunctiva/sclera: Conjunctivae normal. Cardiovascular: Rate and Rhythm: Normal rate and regular rhythm. Heart sounds: Normal heart sounds. Pulmonary: Effort: Pulmonary effort is normal. Breath sounds: Normal breath sounds. Abdominal: Palpations: Abdomen is soft. Genitourinary: Comments: Pressure over bladder, hematuria, no CVA tenderness Musculoskeletal: General: Normal range of motion. Cervical back: Normal range of motion. Skin: General: Skin is warm and dry. Neurological: General: No focal deficit present. Mental Status: She is alert and oriented to person, place, and time. Psychiatric: Mood and Affect: Mood normal. Behavior: Behavior normal. Thought Content: Thought content normal. Judgment: Judgment normal. Assessment/Plan 1. Acute cystitis with hematuria (Primary) Discussed diagnosis, use of Macrobid and its most common side effects were discussed. Instructed to increase her fluids, rest, continue the medication as ordered and follow up as needed for continued symptoms. - nitrofurantoin, macrocrystal-monohydrate, (Macrobid) 100 MG capsule; Take 1 capsule (100 mg) by mouth in the morning and 1 capsule (100 mg) before bedtime. Do all this for 7 days. Dispense: 14 capsule; Refill: 0 2. Burning with urination Discussed in house urinalysis results with the pt today. She is advised that her urine would be sent for culture and she would be notified of the results when completed - POCT urinalysis dipstick manually resulted - URINARY TRACT INFECTION (HTRX); Future - URINARY TRACT INFECTION (HTRX) 3. Centrilobular emphysema (CMS/HCC) She is stable at this time. Denies increasing SOB. 4. Morbid (severe) obesity due to excess calories (CMS/HCC) Current wt is at 218 lbs. She reports monitoring her diet closely. 5. Body mass index (BMI) 40.0-44.9, adult (CMS/HCC) Stable. 6. Chronic obstructive pulmonary disease, unspecified (CMS/HCC) Stable 7. Pulmonary hypertension, unspecified (CMS/HCC) Stable. No follow-ups on file. = documented in this encounter [facility] 09-19-2024 Instructions Luisana Cardozo NP - 09/19/2024 3:00 PM EST Macrobid ordered. Urine sent for culture. documented in this encounter [facility] 09-18-2024 History of Present illness Narrative Images from the original note were not included. Chief Complaint: neck pain and paresthesia Subjective Breann Starks, 78 y.o., female Patient presents today for a neurologic consult for neck pain, paresthesia. She is accompanied by her life partner. Patient states she was sent from pain management. She has had multiple nerve blocks which were not successful. She reports pain in her left shoulder, neck and arm for about 6 months. This pain is constant. She reports most time her muscles feel contracted. She has decreased ROM and is unable to lift her left arm. She states this is worse at night. She does not notice anything that makes this better. Review of Systems Constitutional: Negative for appetite change, fatigue and fever. Respiratory: Negative for cough, shortness of breath and wheezing. Cardiovascular: Negative for chest pain, palpitations and leg swelling. Gastrointestinal: Negative for abdominal pain, constipation, diarrhea and nausea. Musculoskeletal: Positive for neck pain. Negative for arthralgias, gait problem and myalgias. Neurological: Positive for numbness. Negative for dizziness, tremors and headaches. Past Medical History: Diagnosis Date Anemia Atrial fibrillation ([facility]/HCC) Centrilobular emphysema ([facility]) COPD (chronic obstructive pulmonary disease) ([facility]) COPD exacerbation ([facility]) 10/17/2023 Coronary artery disease ([facility]) Diastolic dysfunction Essential hypertension ([facility]) History of tobacco abuse Nonalcoholic steatohepatitis (LOJA) Obstructive sleep apnea Osteoarthritis Paroxysmal atrial fibrillation ([facility]/HCC) Peptic ulcer disease Secondary pulmonary arterial hypertension ([facility]/HCC) Sick sinus syndrome ([facility]/HCC) Spinal stenosis, lumbar region with neurogenic claudication SVT (supraventricular tachycardia) ([facility]) URTI (acute upper respiratory infection) Vertigo Vitamin D deficiency Past Surgical History: Procedure Laterality Date APPENDECTOMY HYSTERECTOMY INSERT / REPLACE / REMOVE PACEMAKER OTHER SURGICAL HISTORY Abalation REVERSE TOTAL SHOULDER ARTHROPLASTY Left 12/29/2021 DR AMIN ROTATOR CUFF REPAIR Right SHOULDER ARTHROSCOPY Bilateral (L) , (R) x3 TOTAL KNEE ARTHROPLASTY Bilateral TRIGGER FINGER RELEASE Left RF Family History Adopted: Yes Social History Tobacco Use Smoking status: Former Types: Cigarettes Passive exposure: Past Smokeless tobacco: Not on file Substance Use Topics Alcohol use: Yes Comment: OCCASSIONAL Allergies: Nsaids, Digoxin, and Wound dressing adhesive Vitals: 09/18/24 1009 BP: 136/86 Pulse: 66 SpO2: 91% Body mass index is 43.83 kg/m . weight: 217 lb Neurologic exam: Mental status: Awake, alert to person, place and time. Recent and remote memory are intact. Language is fluent without aphasia. Attention and concentration are normal. Fund of knowledge is appropriate for level of education. Cranial nerves: CN II: Visual acuity is normal. Visual hayes full to confrontation. CN III, IV, : pupils equal round and reactive to light. Extraocular movements intact. No ptosis present. CN V: Facial sensation is normal. CN VII: Full and symmetric facial movement. CN VIII: Hearing is normal to finger rub bilaterally: CN IX and X: Palate elevates symmetrically. CN XI: Shoulder shrug is normal bilaterally. CN XII: Tongue is midline without atrophy or fasciculation. Motor: RUE Strength deltoid, , biceps , triceps , wrist extensors , wrist flexor , insect control aide strength 5/5. Left upper extremity strength is diminished secondary to pain. Patient seems to have 4-/ 5 strength again limited mostly by pain RLE Strength illopsoas, quadriceps, tibialis anterior, and gastrocnemius strength 5/5. LLE Strength illopsoas, quadriceps, tibialis anterior, and gastrocnemius strength 5/5. Normal tone x4 extremities. Bulk is normal. Sensory: Sensation is intact to light touch throughout Four extremities. Reflexes: RUE biceps reflex 2+ brachioradialis reflex 2+ . LUE biceps reflex 2+ brachioradialis reflex 2+ . RLE knee reflex 2+ . LLE knee reflex 2+ . Neal's sign negative. Coordination: Teniam-ak-hjcv testing and rapid alternating movements are normal Gait: Normal Review and summary of old records: Vitamin B12 on 08/24/2024: Normal CT of the left shoulder on 06/26/2024: Postsurgical changes without osseous abnormality. Left axillary lymphadenopathy of uncertain etiology with ultrasound recommended. CT of the cervical spine with contrast on 06/26/2024: Moderate to severe diffuse degenerative changes with no definitive central or foraminal stenosis. EMG of the left upper extremity on 07/19/24: Suggest C6 radiculopathy on the left which is chronic Assessment/Plan Diagnoses and all orders for this visit: Axillary lymphadenopathy Neck pain on left side Left arm pain It is my impression that the patient has substantial left arm pain and paresthesias. She seems to have pain localized to the axillary region of the left bicep. This is been going on for at least [address] scan in June of 2024 did identify lymphadenopathy in the axilla. This does not seem to have been further evaluated or treated since that time. Patient's pain is persistent. Patient has had pain management intervention in her neck without relief. The patient really does not relate any neck pain or radicular symptoms. I am quite concerned as certainly this axillary lymphadenopathy could point to a malignancy type process. I did consider MRI of the cervical spine. However, the patient can not have this due to pacemaker implantation and the fact that the symptomatology really is more localized pain and does not really fit a radicular or cervical process. Plan: Urgent referral to Oncology, Dr. Taniya torres. Patient states she was asked previously to get a mammogram but stated that due to the pain and discomfort she had chosen not to. I do feel that evaluation by Oncology to look at this and other imaging modalities that can be helpful to further diagnose and evaluate this process is of the utmost importance. I did discuss the life-threatening importance of this with the patient's and with her and she fully understands and will proceed with this treatment plan. Additional information was taken from the patient's who accompanied her to the visit today. Pt has been fully educated on their diagnosis, lab results, treatment options, follow up plan, and return instructions documented in this encounter [facility] 08-24-2024 Evaluation note Diagnosis Onset Date Resolution Iron deficiency anemia acute De cem2023 12:55pm [facility] Work Phone: 1(127) 751-485112-13-2024 Evaluation note* Diagnosis Onset Date Resolution Status Admit Date Iron deficiency anemia acute De cem2023 12:55pm Axillary lymphadenopathy acute September 25, 2024 11:08am Iron deficiency anemia acute Ja [facility] 2024 11:08am [facility] Work Phone: 1(206) 213-194812-05-2024 History of Present illness Narrative* Renny Hansen MD - 08/16/2024 10:30 AM EST Images from the original note were not included. HPI Results Additional comments: UGI results Last edited by Carlene Yan LPN on 08/16/2024 10:33 AM. Subjective Patient ID: Breann Starks is a 78 y.o. female who presents for Nausea and Results (UGI results). Nausea / Vomiting Patient complains of nausea. Started 2 months ago, gradual improvement in last couple days. Patientdenies hematemesis, melena, and vomiting. Treatment to date [...] and 10 mg in the evening and 10mg before bedtime. ferrous sulfate 325 (65 Fe) MG tablet Take 325 mg by mouth every other day flecainide (Tambocor) 100 MG tablet Take 100 mg by mouth every 12 (twelve) hours furosemide (Lasix) 40 MG tablet TAKE 1 TABLET BY MOUTH EVERY DAY 90 tablet 0 HYDROcodone-acetaminophen ([place]) 5-325 MG tablet Take 1 tablet by [...] for As Previously Scheduled. documented in [facility] [id number] History of Present illness Narrative* Renny Hansen MD - 08/02/2024 11:00 AM EST Images from the original note were not included. Subjective Patient ID: Breann Starks is a 78 y.o. female who presents for Nausea. Nausea / Vomiting Patient complains of nausea. Started 2 months ago, gradual improvement in last couple days. Patientdenies hematemesis, melena, and vomiting. Treatment to date has been zofran--no help per pt. Current Outpatient Medications on File Prior to Visit Medication Sig Dispense Refill Ascorbic Acid (vitamin C) 100 MG tablet Take 100 mg by mouth in the morning. baclofen (Lioresal) 10 MG tablet Take 10 mg by mouth in the morning and 10 mg in the evening and 10mg before bedtime. ferrous sulfate 325 (65 Fe) MG tablet Take 325 mg by mouth every other day flecainide (Tambocor) 100 MG tablet Take 100 mg by mouth every 12 (twelve) hours furosemide (Lasix) 40 MG tablet TAKE 1 TABLET BY MOUTH EVERY DAY 90 tablet 0 HYDROcodone-acetaminophen ([place]) 5-325 MG tablet Take 1 tablet by [...] nasal spray Administer 1-2 sprays into each nostrilDaily for 14 days Shake gently. Before first use, prime pump. After use, clean tip and replace cap.16 g 0 No current facility-administered medications on [...] Greater than 25 minutes was spent in [id number] consultation and coordination of care. Persistent atrial fibrillation (HCC) (CMS/HCC) Nausea - FL upper GI double contrast w KUB; Future Follow up in about 2 weeks (around 08/16/2024) for Test/Lab Review. documented in this [facility]11-13-2024 Telephone encounter Note* Telephone Encounter - DANIELLE Florence - 07/25/2024 1:07 PM EST My chart message. [facility] [id number] Miscellaneous Notes* Telephone Encounter - DANIELLE Florence - 07/25/2024 1:07 PM EST My chart message. documented in this [facility]11-12-2024 History of Present illness Narrative* DANIELLE Florence - 07/24/2024 11:00 AM EST Images from the original note were not [...] changed since last visit. Still has significant decreasein ROM and strength of her left arm. Ortho states the problem is her neck, not her shoulder. Pain is constant in left arm. Pt does see pain magment in [place]. Sees their office next week on the [...] and 10 mg in the evening and 10mg before bedtime. ferrous sulfate 325 (65 Fe) MG tablet Take 325 mg by mouth every other day flecainide (Tambocor) 100 MG tablet Take 100 mg by mouth every 12 (twelve) hours furosemide (Lasix) 40 MG tablet TAKE 1 TABLET BY MOUTH EVERY DAY 90 tablet 0 HYDROcodone-acetaminophen ([place]) 5-325 MG tablet Take 1 tablet by [...] by mouth in the morning and 300 mgin the evening. No current facility-administered medications on [...] Neck pain on left side Can continue Molalla as needed for pain. Radicular pain in left arm Partner would like to know how much of her left arm function will return after the radiculopathy istreated. Advised strength and ROM may improve after [...] (CMS/HCC) The patient is seeing a medical care administrator for this condition, treatment is deferred to that specialist. Correspondence from that specialist and any available testing were reviewed during today's visit. She will be having Cardiac Catheterization for further evaluation of the pulmonary hypertension. Other thrombophilia Will recheck with updated labs. Follow up in about 4 weeks (around 08/21/2024) for Next scheduled follow-up with Dr. Hansen. documented in this encounterMiss[facility] [id number] Telephone encounter Note* Telephone Encounter - DANIELLE Florence - 07/24/2024 10:04 AM EST Will discuss with pt at today's OV [facility] [id number] Miscellaneous Notes* Telephone Encounter - DANIELLE Florence - 07/24/2024 10:04 AM EST Will discuss with pt at today's OV * Telephone Encounter - Renny Hansen MD - 07/05/2024 2:55 PM EDT Call after mammogram with plan. See last OV. documented in this [facility]11-06-2024 NoteUT Cardiology - [facility] Subjective Breann Starks is a 78 y.o. year old female patient being seen for Atrial Fibrillation, PACEMAKER, Coronary Artery Disease, Hypertension, Sinus node dysfunction (HAS [place]OST[place] PACER), Obesity, and Edema Patient Active Problem List Diagnosis Disorder of bursae of shoulder region Chronic obstructive lung disease (CMS/HCC) Atherosclerosis of [place] coronary artery of [place] heart without angina pectoris Diaphragmatic hernia Edema [...] rhythm, normal EKG Ech (more content not included)...[facility]10-24-2024 Telephone encounter Note* Telephone Encounter - Renny Hansen MD - 07/05/2024 2:55 PM EDT Call after mammogram with plan. See last OV. [id number] History of Present illness Narrative* Renny Hansen MD - 07/05/2024 9:00 AM EDT Images from the original note were not [...] palpitations, paroxysmal nocturnal dyspnea, syncope, and tachypnea. Cardiovasc ular risk factors: advanced age (older than 55 [...] and 10 mg in the evening and 10mg before bedtime. ferrous sulfate 325 (65 Fe) MG tablet Take 325 mg by mouth every other day flecainide (Tambocor) 100 MG tablet Take 100 mg by mouth every 12 (twelve) hours furosemide (Lasix) 40 MG tablet TAKE 1 TABLET BY MOUTH EVERY DAY 90 tablet 0 HYDROcodone-acetaminophen ([place]) 5-325 MG tablet Take 1 tablet by [...] Greater than 45 minutes was spent in [id number] consultation and coordination of care. Follow up in about 4 months (around 11/05/2024) for Call after mammogram. documented in this encounterMissouri Southern [id number] History of Present illness Narrative* Monster Calvillo NP - 06/02/2024 10:19 AM EDTAssociated Problem(s): Acute on chronic diastolic (congestive) heart failure (CMS/HCC) Discussed with Dr. Hennessy's office pt symptoms and clinical condition today in office. Sent pt to ER for further workup and tx of suspected CHF exacerbation. * Monster Calvilol NP - 05/31/2024 1:30 PM EDT Images from the original note were not included. Subjective Patient ID: Breann Starks is a 78 y.o. female who presents for Follow-up and Cough. HPI CHF: Last appointment [address] Hennessy Weight 232 in March here Is now 237 Has productive wet cough, significant edema noted to L side. SARITA PEREZ; Did not take Lasix today- was worried [...] Neurological: Negative for dizziness, tremors, syncope, weakness, light- headedness and headaches. Psychiatric/Behavioral: Negative for decreased concentration and suicidal ideas. The patient is notnervous/anxious. Hematological: Does not bruise/bleed easily. Endocrine: Negative [...] of the right-lower field reveals rales. Examination ofthe left-lower field reveals rales. Rales present. Abdominal: [...] of suspected CHF exacerbation. documented in this encounterMissouri Southern [id number] NoteHNO ID: [id number] Author: BOO BUCHANAN PA-C Service: ? Author Type: Physician Consulting Business Developer Type: Progress Notes Filed: 05/22/2024 13:53 Note [...] Duration Units: Months Frequency: Intermittent Intervention/Comfort measure: Reposition;Relaxation;Medication;Positioning baclofen, percocet HISTORY: Breann Starks has complains [...] recommended for second opinion at [facility]. She also had a CRP and [...] of the hardware. Bone scan performed at [facility]' to be uploaded to the system. Boo Buchanan (more content not included)...[facility] 05-22-2024 History of Present illness Narrative* Boo Buchanan PA-C - 05/22/2024 1:39 PM EDT Images from the original note were not [...] Duration Units: Months Frequency: Intermittent Intervention/Comfort measure: Reposition;Relaxation;Medication;Positioning baclofen, percocet HISTORY: Breann Starks has complains of left shoulder pain s/p left reverse total shoulder arthroplasty from [address] Lazar. Past medical history of A-fib, COPD, obesity. States she hashad a history of pain postoperatively. She was sent to spine care for suspicion of cervical radiculo roro initially. Her shoulder pain has persisted to the point recently when she has sought care from her primary care. Her primary care ordered a bone scan of the left shoulder and radiographs. Therehas been some concern for periprosthetic lucencies about the glenoid components and uptake on the bone scan in this region. She was recommended for second opinion at [facility]. She also had a CRP and [...] up to upper extremity surgeon. They have beengiven the name González Abarca he already, I explained this would be a good person to see for additional care if Dr. Lazar cannot take care of her. I ordered some additional inflammatory markers for trending purposes and a CT scan of her shoulder for further evaluation of the hardware. Bone scan performed at [facility]' to be uploaded to the system. YOLY Whiteally signed by Boo Buchanan PA-C at 05/22/2024 1:53 PM EDT documented in this encounterMer[facility]09[facility]2024 NoteHNO ID: [id number] Author: JYOTHI CRUZ RT(R) Service: ? Author [...] PATIENT PRESENTS WITH AN IMPLANTABLE OR ATTACHED FLIGHT COORDINATOR: No RADIOLOGY DEPARTMENT: General X-ray: Exam(s) Completed: Upper Extremity X-Ray(s): Shoulder, AP / TRUE AP / AXILLARY / SUPRA OUTLET left PERIPHERAL IV DATA: Not applicable SIGNED BY: RT Chaparrita(Dario) May 22, 2024 1:25 [facility]09-10-2024 History of Present illness Narrative* Jyothi Cruz RT(R) - 05/22/2024 1:25 PM EDT Radiology Service Progress Note PATIENT NAME: Breann Starks DATE OF SERVICE: May 22, 2024 TIME: 1:25 PM PATIENT IDENTITY VERIFICATION COMPLETED USING TWO (2) IDENTIFIERS: Name and Date of confirmedby patient verbally. FALL SCREENING: Has the patient had 2 falls in the last year or 1 fall with injury or currently using an Ambulatory Assistive Device (Walker, Cane, Wheelchair, Crutches, etc.)? Yes, Patient High Riskfor Falls What interventions were put in place to prevent falls during this visit? Instructed Patient to Callfor Help if Needed, Offered Assistance with Transfers/Clothing, Instructed Patient to Remain Seated(Not on Exam Table) Until Exam, and Increased Observations by Caregivers PATIENT GENDER DATA: Female. status: : No status: NO. PATIENT RELEVANT IMPLANT DATA REVIEWED: Not Applicable PATIENT PRESENTS WITH AN IMPLANTABLE OR ATTACHED FLIGHT COORDINATOR: No RADIOLOGY DEPARTMENT: General X-ray: Exam(s) Completed: Upper Extremity X- Ray(s): Shoulder, AP / TRUE AP / AXILLARY / SUPRA OUTLET left PERIPHERAL IV DATA: Not applicable SIGNED BY: RT Chaparrita(R) May 22, 2024 1:25 PM documented in this encounterMer[facility]08-28-2024 History of Present illness Narrative* Jr. Sakina Cardenas, DO - 05/09/2024 10:00 AM EDT Images from the original note were not included. HISTORY OF PRESENT ILLNESS: EST PT Breann Starks is an 78 y.o. @ female. (EST PT ; LAST APPT W/ QUINN) RECHECK (L) SHOULDER PAIN ; HERE FOR BONE SCAN RESULTS 05/02/24 @ [facility] (VERBAL GIVEN PER QUINN - REFERRAL SENT TO DR AMIN) & LABS 05/09/24 @ [facility] (CBC / SED RATE / CRP) S/P (L) REVERSE TSR 12/29/21 - DR AMIN XRAYS, (L) SHOULDER & C-SPINE 04/16/24 IN EPIC ATTEMPTED MRI @ [facility] - UNABLE TO OBTAIN IMAGES D/T PACEMAKER PLACEMENT BONE SCAN 05/02/24 @ [facility] LABS 05/09/24 @ [facility] (CBC / SED [...] - STATES SHE HAS PAIN AFTER USING HER(L) ARM TO USE A BACK QUALITY ASSURANCE COORDINATOR ON HER BACK ALLERGIES: Allergies Allergen Reactions Nsaids Other Reaction(s): HEART ISSUES Digoxin Rash Wound Dressing Adhesive Rash HOME MEDICATIONS: Current Outpatient Medications Medication Instructions apixaban (ELIQUIS) 5 mg, Oral, 2 times daily ferrous sulfate 325 mg, Oral, Daily with breakfast, Do not crush, chew, or split. flecainide (TAMBOCOR) 100 mg, Oral, Every 12 hours furosemide (LASIX) 40 mg, Oral, Daily HYDROcodone-acetaminophen ([place]) 5-325 MG tablet 1 tablet, Oral, 3 [...] Elbow: none Palpation additional comments: Neg [employer] strength symmetric. Wrist flex/ ext. Symmetric 5/5 [...] I am acting as scribe for Dr. Cardenas/ahrrison, PLAN: We have reviewed prior (L) shoulder [...] basis. Sakina Cardenas D.O. documented in this encounterMissouri Southern [id number] NoteChief Complaint consultation for anemia HPI Staff 78 year old female presents on consultation from [facility] for anemia. Labs completed yesterday with [...] PSVT, spinal stenosis, cervical radiculopathy; referred from [facility] for anemia, low iron, and positive fecal occult blood; patient notice fatigue several weeks ago, seen by Dr Denis and jerry shaw blood work done, sent to ED after anemia noted; no change in bms or gross blood in stools, no abdcomplaints; on Omeprazole daily due to GERD and [...] swallowing difficulties, no hearing loss, no ear infection(s),no nose bleeds. Cardiovascular: normal blood pressure, no [...] PSVT (paroxysmal supraventricular t (more content not included)...[facility] SouthwoodsComment on above:Result Comment: Electronically Signed By: CATHERINE CUBA, Ortega Quinonez\Date and Time Signed: 03/02/24 13:01 [id number] Note Cardiovascular Medicine [facility] SUBJECTIVE Chief Complaint Patient presents with Atrial Fibrillation Breann Starks is a 78 y.o. female here for follow-up. HPI PMHx: A-fib, atrial tachycardia s/p ablation 2005, sick sinus syndrome s/p PPM 10/2020 dual-chamber [employer], COPD, mild CAD s/p cardiac cath 2010, SHAWANDA noncompliant with mask, and obesity. She has been doing well since last seen. No significant changes. Denies c/o CP, dyspnea, orthopnea, PND, LE edema, dizziness/LH, palpitations, syncope. Patient Active Problem List Diagnosis Disorder of bursae of shoulder region Chronic obstructive lung disease (CMS/HCC) Atherosclerosis of [place] coronary artery of [place] heart without angina pectoris Diaphragmatic hernia Edema [...] 10*3/uL Final Monocytes Absolu (more content not included)...[facility]05-07-2024 NotePatient here for 6 mo follow up persistent afib, CAD, hypertension, and sinus node dysfunction. Her device was interrogated in the office last month. Denies chest pain, SOB, lightheadedness/syncope, and bleeding on Eliquis. Says she feels great. Review of Systems Musculoskeletal: Positive for back pain. Neurological: Positive for numbness. All other systems reviewed and are negative.[facility] 10-07-2021 Evaluation note* Encounter Date Diagnosis Assessment Notes Treatment Notes Treatment Clinical Notes Sep, LOJA (nonalcoholic steatohepatitis) (ICD-10 - K75.81) OBTAIN FIBROSURE RESULTS FROM [facility] REASSURANCE ON RESULTS PT ENCOURAGED WEIGHT LOSS RTO ONE YEAR WITH LABS ANNUALLY Sep, Unspecified cirrhosis of liver (ICD-10 - K74.60) [employer] Other 12-15-2021 Evaluation note* Encounter Date Diagnosis Assessment Notes Treatment Notes Treatment Clinical Notes Aug, Nonalcoholic steatohepatitis (LOJA) (ICD-10 - K75.81) RTO 6-8 WEEKS Aug, Unspecified cirrhosi s of liver (ICD-10 - K74.60) Aug, Morbid obesity (ICD- 10 - E66.01) [employer] Other Evaluation + Plan note No data available for this section [facility] [place] Evaluation noteNo assessment information available [facility] Work Phone: Evaluation note* Diagnosis 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)- Primary Left shoulder pain, unspecified chronicity Left shoulder pain, unspecified chronicity [facility]* Diagnosis Left shoulder pain, unspecified chronicity [facility]* Diagnosis Acute on chronic diastolic (congestive) heart failure (CMS/HCC) documented in this encounter [facility] HealthcareEvaluation note* Diagnosis Essential hypertension (CMS/HCC)- Primary [...] Unspecified essential hypertension documented [facility] encounter [facility]* Diagnosis Essential hypertension (CMS/HCC)- [...] Other thrombophilia (CMS/HCC) documented in this encounter [facility]* Diagnosis Essential hypertension (CMS/HCC)- [...] blood loss (chronic) documented in this encounter [facility]* Diagnosis Essential hypertension (CMS/HCC)- [...] Nausea Nausea alone documented in this encounter [facility]* Diagnosis Essential hypertension (CMS/HCC)- [...] (CMS/HCC)- Primary [facility]* [...] failure (CMS/HCC)- Primary Persistent atrial fibrillation (HCC) (CMS/HCC) Atrial fibrillation documented in this encounter [facility]* Diagnosis Essential hypertension (CMS/HCC)- [...] chronic diastolic (congestive) heart failure (CMS/HCC)- Primary Axillary lymphadenopathy- Primary Enlargement of lymph nodes Neck pain on left side Left arm pain Pain in soft tissues of limb documented in this encounter [facility]* Diagnosis Essential hypertension (CMS/HCC)- [...] chronic diastolic (congestive) heart failure (CMS/HCC)- Primary Acute cystitis with hematuria- Primary Burning with urination Dysuria Centrilobular emphysema (CMS/HCC) Morbid (severe) obesity due to excess calories (CMS/HCC) Body mass index (BMI) 40.0-44.9, adult (CMS/HCC) Chronic obstructive pulmonary disease, unspecified (CMS/HCC) Pulmonary hypertension, unspecified (CMS/HCC) Need for vaccination Need for prophylactic vaccination and inoculation against unspecified single disease [facility]* [...] chronic diastolic (congestive) heart failure (CMS/HCC)- Primary Enlarged lymph nodes in armpit- Primary Enlargement of lymph nodes documented [facility]* [...] chronic diastolic (congestive) heart failure (CMS/HCC)- Primary Routine general medical examination at health care facility- Primary Routine general medical examination at a health care facility ACP (advance care planning) Other specified counseling Acute non-recurrent sinusitis, unspecified location Enlarged lymph nodes in armpit Enlargement of lymph nodes Injury of left shoulder and upper arm, sequela Mastitis, left, acute Left shoulder pain, unspecified chronicity Abnormal mammogram Abnormal mammogram, unspecified Phlebitis of left upper extremity documented in this encounter [facility] HealthcareHistory general [...] Surgical History pacemaker Hospitalization History see above [employer] [facility] Other Hospital Discharge instructions No data available for this section [facility] [place] [facility] Discharge instructionsAmbulatory Orders* Referral to General Surgery Location: None [facility] Work Phone: Progress note No data available for this section [facility] [place] Reason for referral (narrative)* Diagnostic Procedure Only (Routine) - Closed Specialty Diagnoses / Procedures Referred By Contac t Referred To Contact XR IMAGING Diagnoses Left shoulder pain, unspecified chronicity Procedures XR SHOULDER ORTHO 4V AP/TRUE AP/LAT/OUTLET LEFT RADEX SHOULDER COMPLETE MINIMUM 2 VIEWS Boo Buchanan PA-C [address] [place] [address] [place] [address] Referral ID Status Reason Start Date Expiration Date V isits Requested Visits Authorized [id number] Closed Auto-Generate d Referral 05/08/2024 06/07/2025 1 1 [facility] for visit Narrative* Diagnostic Procedure Only (Routine) - Closed Specialty Diagnoses / Procedures Referred By Contac t Referred To Contact XR IMAGING Diagnoses Left shoulder pain, unspecified chronicity Procedures XR SHOULDER ORTHO 4V AP/TRUE AP/LAT/OUTLET LEFT RADEX SHOULDER COMPLETE MINIMUM 2 VIEWS Boo Buchanan PA-C [address] [place] [address] [place] [address] Referral ID Status Reason Start Date Expiration Date V isits Requested Visits Authorized [id number] Closed Auto-Generate d Referral 05/08/2024 06/07/2025 1 1 [facility] for visit Narrative* Consultation (Routine) - Closed Specialty Diagnoses / Procedures Referred By Contac t Referred To Contact Neurology Diagnoses Neck pain on left side Procedures [place] OFFICE/OUTPATIENT NEW HIGH MDM 60 MINUTES Renny Hansen MD [address] [place] [address] Phone: tel: fax: Paula Lord MD [address] [place] [address] Phone: tel: fax: Referral ID Status Reason Start Date Expiration Date V isits Requested Visits Authorized [id number] Closed Specialty Services Required 09/13/2024 03/12/2025 1 1 [facility] Summary Purpose Family History Relationship Condition Age [...] M25.512 Chief Complaint m25.512 M25.512 m25.512 [id number] Chief Complaint Admit Date NEW- Iron deficiency August 24, 2024 12:55pm m25.512 August 24, 2024 2:17pm New DX -Axillary Lymphadenopathy September 25, 2024 11:08am Reason for Visit Admit Date Iron deficiency anemia August 24 12:55pm Chief Complaint Admit Date NEW- Iron deficiency August 24, 2024 12:55pm m25.512 August 24, 2024 2:17pm New DX -Axillary Lymphadenopathy September 25, 2024 11:08am Iron Deficiency October 02, 2024 1 1:30am r92.8 October 16, 2024 1 2:57pm Reason for Visit Admit Date Iron deficiency anemia August 24 12:55pm Axillary lymphadenopathy September 25, 11:08am Iron deficiency anemia September 25 11:08am Reason for Referral Specialty Diagnoses / Procedures Referred By Contac t Referred To Contact Diagnoses Chronic left shoulder pain Monster Calvillo, [address] [place] [address] Referral ID Status Reason Start Date Expiration Date V isits Requested Visits Authorized [id number] Pending Review 05/16/2024 11/12/2024 1 1 Specialty Diagnoses / Procedures Referred By Contac t Referred To Contact CT IMAGING Diagnoses 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) Procedures CT SHOULDER WO IVCON LEFT CT UPPER EXTREMITY W/O CONTRAST MATERIAL Boo Buchanan PA-C [address] [facility] [place] [address] [place] [address] Referral ID Status Reason Start Date Expiration Date Visits Requested Visits Authorized [id number] New Request Auto-Generat ed Referral 05/22/2024 06/21/2025 1 1 Specialty Diagnoses / Procedures Referred By Contac t Referred To Contact XR IMAGING Diagnoses Left shoulder pain, unspecified chronicity Procedures XR SHOULDER ORTHO 4V AP/TRUE AP/LAT/OUTLET LEFT RADEX SHOULDER COMPLETE MINIMUM 2 VIEWS Boo Buchanan PA-C [address] [facility] [place] [address] [place] [address] Referral ID Status Reason Start Date Expiration Date V isits Requested Visits Authorized [id number] Closed Auto-Generate d Referral 05/08/2024 06/07/2025 1 1 Additional Source Comments INFORMATION SOURCE (unrecogn ized section and content) DATE CREATED AUTHOR 10/23/2021 [facility] DATE CREATED AUTHOR AUTHOR'S ORGANIZ ATION 01/22/2022 [facility] DATE CREATED AUTHOR AUTHOR'S ORGANIZ ATION 02/18/2023 [facility] DATE CREATED AUTHOR AUTHOR'S ORGANIZ ATION 03/11/2024 [facility] DATE CREATED AUTHOR AUTHOR'S ORGANIZ ATION 05/24/[address] [facility] DATE CREATED AUTHOR AUTHOR'S ORGANIZ ATION 09/25/2024 [facility] DATE CREATED AUTHOR AUTHOR'S ORGANIZ ATION 10/04/2024 [facility] DATE CREATED AUTHOR AUTHOR'S ORGANIZ ATION 10/06/2024 [facility] EPIC DATE CREATED AUTHOR AUTHOR'S ORGANIZ ATION 10/13/2024 [facility] REASON FOR VISIT (unrecogniz ed section [...] Pedro Pablo Cruz PA [address] [place] [address] González Alvarado MD [address] [place] [address] Referral ID Status Reason Start Date Expiration Date V isits Requested Visits Authorized [id number] Authorized 05/08/2024 09/11/2024 99 99 Reason Comments Med Refill Reason Comments Establish Care Previous pcp Dr Nati Dalal cardiology-dr Ferrell. [facility]-- orthopedic Hypertension Reason Comments Results EMG RESULTS post nasal drainage Reason Comments Nausea Reason Comments Nausea Results UGI results Reason Comments Pain Reason Onset Date Comments Med Refill 05/16/2024 Reason Comments Follow-up Cough Reason Onset Date Comments Med Refill 09/14/2024 Reason Comments Consult Lt axillary lymphade nopathy Reason Comments Medicare Annual Wellness Visit Subsequen t Care Teams (unrecognized sec tion and content) [...] October 11, 2023 End: October 11, 2023 Route Sales Delivery Driver Relationship Specialty Start Date End Date Shaikh Deins MD PCP - General Internal Medicine 04/05/23 [...] May 02, 2024 End: May 02, 2024 Route Sales Delivery Driver Relationship Specialty Start Date End Date Luisana Johnson MD [address] [place], [id number] PCP - General 01/05/06 Pedro Pablo Cruz MD [address] [place] [address] Referring Infectious Diseases 05/07/24 Route Sales Delivery Driver Relationship Specialty Start Date End Date Luisana Johnson MD [address] [place], [id number] PCP - General 01/05/06 Pedro Pablo Cruz MD [address] [place] [address] Referring Infectious Diseases 05/07/24 Route Sales Delivery Driver Relationship Specialty Start Date End Date Luisana Johnson MD [address] [place], [id number] PCP - General 01/05/06 Pedro Pablo Cruz MD [address] [place] [address] Referring Infectious Diseases 05/07/24 Route Sales Delivery Driver Relationship Specialty Start Date End Date Wesley Long MD [address] [place] [address] PCP - General Family Medicine 05/17/24 Monster Calvillo NP [address] [place] [address] Nurse Practitioner Family Medicine 05/17/24 Route Sales Delivery Driver Relationship Specialty Start Date End Date Wesley Long MD [address] [place] [address] PCP - General Family Medicine 05/17/24 Monster Calvillo NP [address] [place] [address] Nurse Practitioner Family Medicine 05/17/24 Route Sales Delivery Driver Relationship Specialty Start Date End Date Wesley Long MD [address] [place] [address] PCP - General Family Medicine 05/17/24 Monster Calvillo NP [address] [place] [address] Nurse Practitioner Family Medicine 05/17/24 Route Sales Delivery Driver Relationship Specialty Start Date End Date Wesley Long MD [address] [place] [address] PCP - General Family Medicine 05/17/24 Monster Calvillo NP [address] [place] [address] Nurse Practitioner Family Medicine 05/17/24 Route Sales Delivery Driver Relationship Specialty Start Date End Date Wesley Long MD [address] [place] [address] PCP - General Family Medicine 05/17/24 Monster Calvillo NP [address] [place] [address] Nurse Practitioner Family Medicine 05/17/24 Route Sales Delivery Driver Relationship Specialty Start Date End Date Wesley Long MD [address] [place] [address] PCP - General Family Medicine 05/17/24 Monster Calvillo NP [address] [place] [address] Nurse Practitioner Family Medicine 05/17/24 Route Sales Delivery Driver Relationship Specialty Start Date End Date Wesley Long MD [address] [place] [address] PCP - General Family Medicine 05/17/24 Monster Calvillo NP [address] [place] [address] Nurse Practitioner Family Medicine 05/17/24 Route Sales Delivery Driver Relationship Specialty Start Date End Date Wesley Long MD [address] [place] [address] PCP - General Family Medicine 05/17/24 Monster Calvillo NP [address] [place] [address] Nurse Practitioner Family Medicine 05/17/24 Route Sales Delivery Driver Relationship Specialty Start Date End Date Wesley Long MD [address] [place] [address] PCP - General Family Medicine 05/17/24 Monster Calvillo NP [address] [place] [address] Nurse Practitioner Family Medicine 05/17/24 Route Sales Delivery Driver Relationship Specialty Start Date End Date Wesley Long MD [address] [place] [address] PCP - General Family Medicine 05/17/24 Monster Calvillo NP [address] [place] [address] Nurse Practitioner Family Medicine 05/17/24 Route Sales Delivery Driver Relationship Specialty Start Date End Date Wesley Long MD [address] [place] [address] PCP - General Family Medicine 05/17/24 Monster Calvillo NP [address] [place] [address] Nurse Practitioner Family Medicine 05/17/24 Route Sales Delivery Driver Relationship Specialty Start Date End Date Wesley Long MD [address] [place] [address] PCP - General Family Medicine 05/17/24 Monster Calvillo NP [address] [place] [address] Nurse Practitioner Family Medicine 05/17/24 Route Sales Delivery Driver Relationship Specialty Start Date End Date Wesley Long MD [address] [place] [address] PCP - General Family Medicine 05/17/24 Monster Calvillo NP [address] [place] [address] Nurse Practitioner Family Medicine 05/17/24 Route Sales Delivery Driver Relationship Specialty Start Date End Date Wesley Long MD [address] [place] [address] PCP - General Family Medicine 05/17/24 Monster Calvillo NP [address] [place] [address] Nurse Practitioner Family Medicine 05/17/24 Route Sales Delivery Driver Relationship Specialty Start Date End Date Shaikh Denis MD [address] [place] [phone] PCP - General Internal Medicine 10/17/23 Route Sales Delivery Driver Relationship Specialty Start Date End Date Shaikh Denis MD [address] [place] [phone] PCP - General Internal Medicine 10/17/23 Route Sales Delivery Driver Relationship Specialty Start Date End Date Shaikh Denis MD [address] [place] [phone] PCP - General Internal Medicine 10/17/23 Route Sales Delivery Driver Relationship Specialty Start Date End Date Wesley Long MD [address] [place] [phone] PCP - General Family Medicine 05/17/24 Monster Calvillo NP [address] [place] [address] Nurse Practitioner Family Medicine 05/17/24 Route Sales Delivery Driver Relationship Specialty Start Date End Date Wesley Long MD [address] [place] [phone] PCP - General Family Medicine 05/17/24 Monster Calvillo NP [address] [place] [address] Nurse Practitioner Family Medicine 05/17/24 Route Sales Delivery Driver Relationship Specialty Start Date End Date Wesley Long MD [address] [place] [phone] PCP - General Family Medicine 05/17/24 Monster Calvillo NP [address] [place] [address] Nurse Practitioner Family Medicine 05/17/24 Route Sales Delivery Driver Relationship Specialty Start Date End Date Wesley Long MD [address] [place] [phone] PCP - General Family Medicine 05/17/24 Monster Calvillo NP [address] [place] [address] Nurse Practitioner Family Medicine 05/17/24 Route Sales Delivery Driver Relationship Specialty Start Date End Date Wesley Long MD [address] [place] [phone] PCP - General Family Medicine 05/17/24 Monster Calvillo NP [address] [place] [address] Nurse Practitioner Family Medicine 05/17/24 Route Sales Delivery Driver Relationship Specialty Start Date End Date Renny Hansen MD [address] [facility] [place] [address] PCP - General Internal Medicine 09/19/24 Team Status: Active Member Role Status Dates Renny Hansen II MD Primary Care Provider Active Team Status: Inactive Member Role Status Dates Renny Hansen II MD Primary Care Provid er, Referring Provider Active Start: August 24, 2024 End: August 24, 2024 Katharina Toledo , CONSTANTINE Attending Provider Active Start: August End: August 24, 2024 Team Status: Inactive Member Role Status Dates Pedro Pablo Cruz PA-C Attending Provider Active S tart: August 24, 2024 End: August 24, 2024 Renny Hansen II MD Primary Care Provider Active Start: August 24, 2024 End: August 24, 2024 Team Status: Inactive Member Role Status Dates Renny Hansen II MD Primary Care Provider Active Start: September 25, 2024 End: September 25, 2024 Katharina Toledo APRN Attending Provider Acti ve Start: September 25, 2024 End: September 25, 2024 Salome Cid DO Referring Provider Active Start: September 25, 2024 End: September 25, 2024 Route Sales Delivery Driver Relationship Specialty Start Date End Date Renny Hansen MD [address] [place] [address] PCP - General Internal Medicine 09/19/24 Route Sales Delivery Driver Relationship Specialty Start Date End Date Renny Hansen MD [address] [place] [address] PCP - General Internal Medicine 09/19/24 Route Sales Delivery Driver Relationship Specialty Start Date End Date Renny Hansen MD [address] [facility] [address] [place] [address] PCP - General Internal Medicine 09/19/24 Route Sales Delivery Driver Relationship Specialty Start Date End Date Renny Hansen MD [address] [facility] [address] [place] [address] PCP - General Internal Medicine 09/19/24 Team Status: Active Member Role Status Dates Renny Hansen II MD Primary Care Provid er, Referring Provider Active Start: October 02, 2024 Katharina Toledo APRN Attending Provider Active Start: October 02, 2024 Team Status: Inactive Member Role Status Dates Renny Hansen II MD Primary Care Provider Active Start: October 16, 2024 End: October 16, 2024 Dmitriy Duque DO Attending Provider Active Start : October 16, 2024 End: October 16, 2024 Route Sales Delivery Driver Relationship Specialty Start Date End Date Renny Hansen MD [address] [facility] [address] [place] [address] PCP - General Internal Medicine 09/19/24 Goals (unrecognized section and content) Goals may be documented in a n alternate section Source Comments (unrecognize d section and content) In the event this informatio n is protected by the Federal Confidentiality of Alcohol and Drug Abuse Patient Records regulations: The Federal rules restrict any use of the information to criminally investigate or prosecute any alcohol or drug abuse patient.[facility] the event this information is protected by the Federal Confidentiality of Alcohol and Drug Abuse Patient Records regulations: The Federal rules restrict any use of the information to criminally investigate or prosecute any alcohol or drug abuse patient.[facility] the event this information is protected by the Federal Confidentiality of Alcohol and Drug Abuse Patient Records regulations: The Federal rules restrict any use of the information to criminally investigate or prosecute any alcohol or drug abuse patient.[facility] FOR RECORDS PERTAINING TO PATIENTS WHO [...] BE BASED ON THE PRIMARY CLINICAL RECORDS. [facility] [employer] [facility]. provides no warranty or guarantee of the accuracy or completeness of information in this document.
--- NOTE | 2024-10-18 12:47 | PM.CN ---
Consult Note: HPI Data of Consult Patient: known to practice within the last 3 years Requesting Physician: Claire Clement NP Primary Care Provider: FAVIAN LUNA Consult Narrative Reason for consult: f/u Narrative: Breann Starks a 78 year old female presents for evaluation and management of low back and lower extremity pain. Pt has a longstanding hx of back pain secondary to lumbar stenosis, lumbar DDD, lumbar spondylosis unresponsive to greater than 6 weeks of provider guided HEP, tylenol, heat, ice, and NSAIDs. Pt currently utilizing baclofen and norco with relief, denies side effects. Pain today 4/10 increasing to 9/10 with standing, walking, housework, activity, ADLs. denies falls. Prior lumber TFESI provided >50% improvement for 3 months and pt would like to discuss repeating. cc:: CC: Claire Clement NP Review of Systems ROS Status of ROS 10 or more systems reviewed and unremarkable except as noted in history and below Musculoskeletal Reports: back pain and extremity pain PFSH [facility] Medical History (Updated 09/13/24 @ 09:36 by Claire Clement NP) Arthritis ?M19.90 - Unspecified osteoarthritis, unspecified site (ICD-10) Chronic obstructive pulmonary disease ?J44.9 - Chronic obstructive pulmonary disease, unspecified (ICD-10) Peptic ulcer ?K27.9 - Peptic ulcer, site unspecified, unspecified as acute or chronic, without hemorrhage or perforation (ICD-10) Dyspnea on exertion ?R06.09 - Other forms of dyspnea (ICD-10) Anemia ?D64.9 - Anemia, unspecified (ICD-10) Hypertension ?I10 - Essential (primary) hypertension (ICD-10) Extremity edema ?R60.0 - Localized edema (ICD-10) Congestive heart failure ?I50.9 - Heart failure, unspecified (ICD-10) Atrial fibrillation ?I48.91 - Unspecified atrial fibrillation (ICD-10) Shoulder pain ?M25.519 - Pain in unspecified shoulder (ICD-10) Fatty liver ?K76.0 - Fatty (change of) liver, not elsewhere classified (ICD-10) History of shingles ?Z86.19 - Personal history of other infectious and parasitic diseases (ICD-10) Osteoarthritis ?M19.90 - Unspecified osteoarthritis, unspecified site (ICD-10) Pacemaker ?Z95.0 - Presence of cardiac pacemaker (ICD-10) Hiatal hernia ?K44.9 - Diaphragmatic hernia without obstruction or gangrene (ICD-10) Low back pain ?M54.50 - Low back pain, unspecified (ICD-10) Irregular heart beat ?I49.9 - Cardiac arrhythmia, unspecified (ICD-10) Surgical History History of shoulder replacement ?Z96.619 - Presence of unspecified artificial shoulder joint (ICD-10) S/P rotator cuff repair ?Z98.890 - Other specified postprocedural states (ICD-10) History of colonoscopy ?Z98.890 - Other specified postprocedural states (ICD-10) S/P YANELI-BSO ?Z90.710 - Acquired absence of both cervix and uterus (ICD-10) ?Z90.722 - Acquired absence of ovaries, bilateral (ICD-10) ?Z90.79 - Acquired absence of other genital organ(s) (ICD-10) H/O cardiac catheterization ?Z98.890 - Other specified postprocedural states (ICD-10) H/O arthroscopy of shoulder ?Z98.890 - Other specified postprocedural states (ICD-10) H/O arthroscopy of knee ?Z98.890 - Other specified postprocedural states (ICD-10) History of appendectomy ?Z90.49 - Acquired absence of other specified parts of digestive tract (ICD-10) History of total knee arthroplasty ?Z96.659 - Presence of unspecified artificial knee joint (ICD-10) Social History Within the past year, how often did you have a drink containing alcohol: monthly or less Smoking status: Former smoker Non-prescribed substance use: denies use Previous occupational history: retired Highest level of school completed/degree received: high school graduate Little interest or pleasure in doing things: not at all Feeling down, depressed, or hopeless: not at all Meds Home Medications and Allergies Home Medications ?Medication ?Instructions ?Recorded ?Confirmed ?Type cholecalciferol (vitamin D3) 125 5,000 unit PO DAILY 02/16/23 09/10/24 History mcg (5,000 unit) tablet (Vitamin D3) flecainide 100 mg tablet 100 mg PO Q12H 02/16/23 09/10/24 History omeprazole 40 mg capsule,delayed 40 mg PO DAILY 02/16/23 09/10/24 History release spironolactone 25 mg tablet 25 mg PO DAILY 02/16/23 09/10/24 History (Aldactone) verapamil 180 mg tablet,extended 180 mg PO Q12H 02/16/23 09/10/24 History release (Calan SR) apixaban 5 mg tablet (Eliquis) 5 mg PO BID 05/11/23 09/10/24 History furosemide 40 mg tablet 40 mg PO DAILY 03/01/24 09/10/24 History naloxone 4 mg/actuation nasal 4 mg intranasal Q3M PRN opioid 05/17/24 09/10/24 Rx spray (Narcan) overdose #2 ea benzonatate 100 mg capsule 100 mg PO TID PRN cough #14 caps 05/25/24 09/10/24 Rx ipratropium 0.5 mg-albuterol 3 mg 3 ml inhalation Q6H PRN shortness 05/25/24 09/10/24 Rx (2.5 mg base)/3 mL nebulization of breath #90 mL soln baclofen 10 mg tablet 10 mg PO TID PRN muscle spasm #90 06/21/24 09/10/24 Rx tabs hydrocodone 5 mg-acetaminophen 325 1 tab PO TID PRN pain #90 tabs 09/27/24 Rx mg tablet hydrocodone 5 mg-acetaminophen 325 1 tab PO TID PRN pain #90 tabs 09/27/24 Rx mg tablet baclofen 10 mg tablet 10 mg PO TID #90 tabs 10/10/24 Rx Allergies Allergy/AdvReac Type Severity Reaction Status Date / Time No Known Drug Allergies Allergy Verified 09/10/24 08:03 Exam Constitutional Documenting provider has reviewed patient's vital signs: yes Common normals: no apparent distress, oriented x3, healthy appearing, alert and well nourished General appearance: cooperative HENMT Common normals: normocephalic, hearing grossly normal bilaterally and moist oral mucous membranes Head and scalp: normocephalic Eye Common normals: PERRL Pupil: PERRL Neck & C-Spine Common normals: full ROM General: normal visual inspection Chest Common normals: inspection of chest normal Respiratory Common normals: normal respiratory effort, no retractions and no use of accessory muscles Back & Pelvis Lumbar spine/lower back: ROM limited, pain with ROM and straight leg raise positive left Sacroiliac joints: SI joint(s) abnormal Other: left positive letitia(patricks), gaenslens, thigh thrust, compression test strength in LLE 4/5 RLE 5/5 decreased sensation to left L4,5,S1 Neuro Common normals: oriented x3, CN's II-XII intact bilaterally, moves all extremities, no focal motor deficits, no sensory deficits noted and deep tendon reflexes 2+ bilaterally Sensorium/orientation: alert Motor exam: no movement abnormalities noted and strength abnormal Psych Common normals: mental status grossly normal, thought process normal, cooperative, affect normal, speech normal and activity/motor behavior normal Speech: normal speech Thought process: normal thought process Results Additional Findings Additional findings: If on a controlled substance or opioids, I have checked an [place] report on this patient and there are no aberrancies noted in the prescribing history.??If on a controlled substance or opioid a drug screen was completed and reviewed within the last year, and if there has not been a drug screen completed we ordered one today to monitor higher risk, state monitored pain medication use. As part of providing excellent, safe, comprehensive care, the following was completed at our patient's visit: 1. A medication reconciliation and review to ensure accurate knowledge of current/active medications, including asking our patients to inform us about any [id number]-[id number] medications or herbal remedies/nutritional supplements/alternative remedies. 2. A review to specifically ensure our patients have had annual screening for screening for depression, screening for tobacco use, and screening for unhealthy alcohol use. For concerning screenings had a discussion with the patient, provided patient education, and recommended follow-up with primary care provider when appropriate. If patient noted with a risk of falling, they received education on strength, gait, and balance training to prevent future risk of falling. Portions of this note may have been carried over from the previous visit and updated as appropriate. Please note this office utilizes paper charting in addition to the electronic medical record. A list of current medications, vitals, and PMH is available there as the clinical staff outside of myself do not have access to [facility] charting during the clinic day operations. As part of providing quality comprehensive care the current medications, vitals, and PMH were reviewed in the paper chart. Assessment and Plan Assessment and Plan (1) Lumbar stenosis with neurogenic claudication: (2) Lumbar spondylosis: (3) Chronic use of opiate drug for therapeutic purpose: (4) Sacroiliitis: Plan repeat left L4-5 l5-S1 TFESI under fluoroscopy for lumbar stenosis with NC, previous injection provided >50% improvement for 3 months continue current medications continue HEP as tolerated f/u 2 weeks after injection, consider left SIJ injection
== END 2024-10-18 12:27 | disposition home or self-care (01) ==
LOC: PM 12:26
PROVIDERS: PCP Internal Medicine; Visit Provider Nurse Practitioner
DX: M48.062 Spinal stenosis, lumbar region with neurogenic claudication (principal); M47.816 Spondylosis without myelopathy or radiculopathy, lumbar region; Z79.891 Long term (current) use of opiate analgesic; M46.1 Sacroiliitis, not elsewhere classified
CPT/HCPCS: G0463

== ENCOUNTER 2024-10-29 08:52 | Day surgery (SDC) | payer MEDICARE, SELFPAY ==
[2024-10-29 09:22] VITALS: BP 128/65; PULSE 60; TEMP 36.2; O2SAT 96
[2024-10-29 10:13] VITALS: BP 139/78; PULSE 60; O2SAT 97
[2024-10-29 10:14] VITALS: BP 150/80; PULSE 62; O2SAT 96
[2024-10-29] MEDS: LIDOCAINE HCL 2% 400 MG/20 ML MDV 3 ML INJ (10:17)
[2024-10-29] MEDS: IOHEXOL 240 MG/ML - 10 ML VIAL 12 MG INJ (10:17)
[2024-10-29] MEDS: BUPIVACAINE HCL 0.25% PF 25 MG/10 ML VIAL INJ (10:17)
[2024-10-29] MEDS: 0.9 % SODIUM CHLORIDE 10 ML SYRINGE - SALINE FLUSH INJ (10:17)
--- NOTE | 2024-10-29 10:17 | P.ON_ITS ---
Date of procedure: 10/29/24 Pre-op diagnosis: Pain due to lumbar stenosis with neurogenic claudication Post-op diagnosis: same as pre-op Procedure: Procedure: Left L4-5, L5-S1 transforaminal epidural steroid injection Medications: Bupivacaine 0.25% 2cc, lidocaine 2% 1cc, depomedrol 80mg The patient was seen and examined in the preoperative holding area.? Informed consent was obtained and placed on the chart.? Patient was brought to the medical procedure unit and placed in the prone position where a timeout was completed verifying the correct patient, procedure site, position, and planned special equipment using sterile aseptic technique.? Under direct fluoroscopic visualization a 25-gauge Quincke tipped spinal needle was advanced to the designated neural foramen where contrast dye was injected to show adequate spread.? The needle was inserted at level left L4-5. There was no evidence of vascular or adverse uptake.? Epidural spread was appreciated.? The above- mentioned injectate was then placed in a 1.5 mL aliquot preceded by negative aspiration.? The needle was removed. The needle was inserted and the procedure repeated at level left L5-S1.? The surgery site was covered.? Patient was taken to the postprocedural recovery area and monitored for an appropriate length of time before found suitable for discharge in the accompaniment of a responsible adult. Anesthesia: Local Surgeon: Miguel Murphy Pathology: none sent Condition: stable Disposition: no change
[2024-10-29] MEDS: METHYLPREDNISOLONE ACETATE 80 MG/ML VIAL INJ (10:18)
== END 2024-10-29 10:22 | disposition home or self-care (01) ==
PROVIDERS: PCP Internal Medicine; Visit Provider Anesthesiology
DX: M48.062 Spinal stenosis, lumbar region with neurogenic claudication (principal)
CPT/HCPCS: 64483; 64484; J0665; J1010; Q9966

== ENCOUNTER 2024-11-08 13:41 | Outpatient (OUT) | payer MEDICARE, SELFPAY ==
--- NOTE | 2024-11-08 14:09 | P.CN_ITS ---
Consult Note: HPI Data of Consult Patient: known to practice within the last 3 years Requesting Physician: Claire Clement NP Primary Care Provider: FAVIAN LUNA Consult Narrative Reason for consult: low back and LE pain Narrative: Breann Starks a pleasant 78 year old female presents for evaluation and management of chronic low back and left leg pain. failed to benefit from > 6 weeks of HEP, heat, ice, tylenol, cannot take NSAIDs on eliquis. currently utilizing baclofen 10mg TID PRN and norco 5-325mg TID PRN moderate to severe pain. continues to have moderate to severe left shoulder and arm pain, pending further workup with orthopedics. MATILDE 34% today. denies falls/injury. recently underwent left L4-5 L5-S1 TFESI with >80% improvement ongoing cc:: CC: Claire Clement NP Review of Systems ROS Status of ROS 10 or more systems reviewed and unremark able except as noted in history and below Musculoskeletal Reports: extremity pain and joint pain PFSH [facility] Medical History (Updated 09/13/24 @ 09:36 by Claire Clement NP) Arthritis ?M19.90 - Unspecified osteoarthritis, unspecified site (ICD-10) Chronic obstructive pulmonary disease ?J44.9 - Chronic obstructive pulmonary disease, unspecified (ICD-10) Peptic ulcer ?K27.9 - Peptic ulcer, site unspecified, unspecified as acute or chronic, without hemorrhage or perforation (ICD-10) Dyspnea on exertion ?R06.09 - Other forms of dyspnea (ICD-10) Anemia ?D64.9 - Anemia, unspecified (ICD-10) Hypertension ?I10 - Essential (primary) hypertension (ICD-10) Extremity edema ?R60.0 - Localized edema (ICD-10) Congestive heart failure ?I50.9 - Heart failure, unspecified (ICD-10) Atrial fibrillation ?I48.91 - Unspecified atrial fibrillation (ICD-10) Shoulder pain ?M25.519 - Pain in unspecified shoulder (ICD-10) Fatty liver ?K76.0 - Fatty (change of) liver, not elsewhere classified (ICD-10) History of shingles ?Z86.19 - Personal history of other infectious and parasitic diseases (ICD- 10) Osteoarthritis ?M19.90 - Unspecified osteoarthritis, unspecified site (ICD-10) Pacemaker ?Z95.0 - Presence of cardiac pacemaker (ICD-10) Hiatal hernia ?K44.9 - Diaphragmatic hernia without obstruction or gangrene (ICD-10) Low back pain ?M54.50 - Low back pain, unspecified (ICD-10) Irregular heart beat ?I49.9 - Cardiac arrhythmia, unspecified (ICD-10) Surgical History History of shoulder replacement ?Z96.619 - Presence of unspecified artificial shoulder joint (ICD-10) S/P rotator cuff repair ?Z98.890 - Other specified postprocedural states (ICD-10) History of colonoscopy ?Z98.890 - Other specified postprocedural states (ICD-10) S/P YANELI-BSO ?Z90.710 - Acquired absence of both cervix and uterus (ICD-10) ?Z90.722 - Acquired absence of ovaries, bilateral (ICD-10) ?Z90.79 - Acquired absence of other genital organ(s) (ICD-10) H/O cardiac catheterization ?Z98.890 - Other specified postprocedural states (ICD-10) H/O arthroscopy of shoulder ?Z98.890 - Other specified postprocedural states (ICD-10) H/O arthroscopy of knee ?Z98.890 - Other specified postprocedural states (ICD-10) History of appendectomy ?Z90.49 - Acquired absence of other specified parts of digestive tract (ICD- 10) History of total knee arthroplasty ?Z96.659 - Presence of unspecified artificial knee joint (ICD-10) Social History Within the past year, how often did you have a drink containing alcohol: monthly or less Smoking status: Former smoker Non-prescribed substance use: denies use Previous occupational history: retired Highest level of school completed/degree received: high school graduate Little interest or pleasure in doing things: not at all Feeling down, depressed, or hopeless: not at all Meds Home Medications and Allergies Home Medications ?Medication ?Instructions ?Recorded ?Confirmed ?Type cholecalciferol (vitamin D3) 125 5,000 unit PO DAILY 02/16/23 10/29/24 History mcg (5,000 unit) tablet (Vitamin D3) flecainide 100 mg tablet 100 mg PO Q12H 02/16/23 10/29/24 History omeprazole 40 mg capsule,delayed 40 mg PO DAILY 02/16/23 10/29/24 History release spironolactone 25 mg tablet 25 mg PO DAILY 02/16/23 10/29/24 History (Aldactone) verapamil 180 mg tablet,extended 180 mg PO Q12H 02/16/23 10/29/24 History release (Calan SR) apixaban 5 mg tablet (Eliquis) 5 mg PO BID 05/11/23 10/29/24 History furosemide 40 mg tablet 40 mg PO DAILY 03/01/24 10/29/24 History naloxone 4 mg/actuation nasal 4 mg intranasal Q3M PRN opioid 05/17/24 10/29/24 Rx spray (Narcan) overdose #2 ea benzonatate 100 mg capsule 100 mg PO TID PRN cough #14 caps 05/25/24 10/29/24 Rx ipratropium 0.5 mg-albuterol 3 mg 3 ml inhalation Q6H PRN shortness 05/25/24 10/29/24 Rx (2.5 mg base)/3 mL nebulization of breath #90 mL soln baclofen 10 mg tablet 10 mg PO TID #90 tabs 10/10/24 10/29/24 Rx hydrocodone 5 mg-acetaminophen 325 1 tab PO TID PRN pain #90 tabs 10/26/24 10/29/24 Rx mg tablet Allergies Allergy/AdvReac Type Severity Reaction Status Date / Time No Known Drug Allergies Allergy Verified 09/10/24 08:03 Exam Constitutional Documenting provider has reviewed patient's vital signs: yes Common normals: no apparent distress, oriented x3, healthy appearing, alert and well nourished General appearance: cooperative [facility] Common normals: normocephalic, hearing grossly normal bilaterally and moist oral mucous membranes Head and scalp: normocephalic Eye Common normals: PERRL Pupil: PERRL Neck & C-Spine Common normals: full ROM General: normal visual inspection Chest Common normals: inspection of chest normal Respiratory Common normals: normal respiratory effort, no retractions and no use of accessory muscles Back & Pelvis Lumbar spine/lower back: straight leg raise negative bilaterally; ROM not limited, no pain with ROM and no lumbar spinal tenderness Sacroiliac joints: SI joints normal Other: sensation intact BLE strength 5/5 in BLE Neuro Common normals: oriented x3, CN's II-XII intact bilaterally, moves all extremities, no focal motor deficits, no sensory deficits noted and deep tendon reflexes 2+ bilaterally Sensorium/orientation: alert Motor exam: strength 5/5 throughout and no movement abnormalities noted Psych Common normals: mental status grossly normal, thought process normal, record center coordinator perative, affect normal, speech normal and activity/motor behavior normal Speech: normal speech Thought process: normal thought process Results Additional Findings Additional findings: If on a controlled substance or opioids, I have checked an [place] report on this patient and there are no aberrancies noted in the prescribing history.??If on a controlled substance or opioid a drug screen was completed and reviewed within the last year, and if there has not been a drug screen completed we ordered one today to monitor higher risk, state monitored pain medication use. As part of providing excellent, safe, comprehensive care, the following was completed at our patient's visit: 1. A medication reconciliation and review to ensure accurate knowledge of current/active medications, including asking our patients to inform us about any [id number] medications or herbal remedies/nutritional supplements/alternative remedies. 2. A review to specifically ensure our patients have had annual screening for screening for depression, screening for tobacco use, and screening for unhealthy alcohol use. For concerning screenings had a discussion with the patient, provided patient education, and recommended follow-up with primary care provider when appropriate. If patient noted with a risk of falling, they received education on strength, gait, and balance training to prevent future risk of falling. Portions of this note may have been carried over from the previous visit and updated as appropriate. Please note this office utilizes paper charting in addition to the electronic medical record. A list of current medications, vitals, and PMH is available there as the clinical staff outside of myself do not have access to [employer] charting during the clinic day operations. As part of providing quality comprehensive care the current medications, vitals, and PMH were reviewed in the paper chart. Assessment and Plan Assessment and Plan (1) Lumbar stenosis with neurogenic claudication: (2) Lumbar spondylosis: (3) Chronic use of opiate drug for therapeutic purpose: Assessment and Plan: I feel these medications are improving the patient's quality of life and allow them to tolerate activities of daily living as well as participate in recreational activity.? The patient does not report intolerable side effects. The patient is NOT opioid naive and non-pharmacologic and non-opioid treatment has failed to significantly relieve the patient's pain and improve functionality. The patient has a diagnosis that is related to a somatic or visceral pain etiology. ? ?? I reviewed with the patient the potential risks and side effects with the use of? opioid medications including but not limited to respiratory depression,? sedation, and even . Within the last 12 months I have verified the patient has access to naloxone should? these effects occur. The patient was advised to let? their family know they had Naloxone in case they would need to administer? the medication. I advised the patient to avoid the use of any other? sedation substances including alcohol, THC, and benzodiazepines while? taking opioid medications due to the risk of compounding side effects and? detrimental outcomes. within the last 12 months I have reviewed the CORRECTIONS UNIT SUPERVISOR, pain treatment agreement and urine drug screen.? ?? A drug screen was completed within the last year, and no aberrancies were noted regarding their use of controlled substances. The patient understands they are subject to the terms and conditions of the pain contract that they have signed. ? ?? I have checked an [place]AR[place] report on this patient today and there are no aberrancies noted in the prescribing history.? Plan continue current medications, tolerating well without side effects continue HEP as tolerated f/u 3 months, sooner if needed
== END 2024-11-08 13:42 | disposition home or self-care (01) ==
PROVIDERS: PCP Internal Medicine; Visit Provider Nurse Practitioner
DX: M48.062 Spinal stenosis, lumbar region with neurogenic claudication (principal); M47.816 Spondylosis without myelopathy or radiculopathy, lumbar region; Z79.891 Long term (current) use of opiate analgesic
CPT/HCPCS: G0463

== ENCOUNTER 2024-12-05 10:59 | Outpatient (OUT) | payer MEDICARE, SELFPAY ==
--- NOTE | 2024-12-05 11:45 | P.CN_ITS ---
Consult Note: HPI Data of Consult Patient: known to practice within the last 3 years Requesting Physician: Claire Clement NP Primary Care Provider: FAVIAN LUNA Consult Narrative Reason for consult: low back and RLE pain Narrative: Breann Starks a pleasant 78 year old female presents for evaluation and management of chronic low back and right leg pain. failed to benefit from > 6 weeks of HEP, heat, ice, tylenol, cannot take NSAIDs on eliquis. currently utilizing baclofen 10mg TID PRN and norco 5-325mg TID PRN moderate to severe pain. continues to have moderate to severe left shoulder and arm pain, pending further workup with orthopedics. MATILDE 49% today. denies falls/injury. pt would like to discuss right sided radicular pain, previously found benefit to lumbar ESIs on right at L4,5 and L5,S1 at least 50% improvement greater than 3 months. cc:: CC: Claire Clement NP Review of Systems ROS Status of ROS 10 or more systems reviewed and unremark able except as noted in history and below Musculoskeletal Reports: back pain, extremity pain and joint pain PFSH PFSH Medical History (Updated 09/13/24 @ 09:36 by Claire Clement NP) Arthritis ?M19.90 - Unspecified osteoarthritis, unspecified site (ICD-10) Chronic obstructive pulmonary disease ?J44.9 - Chronic obstructive pulmonary disease, unspecified (ICD-10) Peptic ulcer ?K27.9 - Peptic ulcer, site unspecified, unspecified as acute or chronic, without hemorrhage or perforation (ICD-10) Dyspnea on exertion ?R06.09 - Other forms of dyspnea (ICD-10) Anemia ?D64.9 - Anemia, unspecified (ICD-10) Hypertension ?I10 - Essential (primary) hypertension (ICD-10) Extremity edema ?R60.0 - Localized edema (ICD-10) Congestive heart failure ?I50.9 - Heart failure, unspecified (ICD-10) Atrial fibrillation ?I48.91 - Unspecified atrial fibrillation (ICD-10) Shoulder pain ?M25.519 - Pain in unspecified shoulder (ICD-10) Fatty liver ?K76.0 - Fatty (change of) liver, not elsewhere classified (ICD-10) History of shingles ?Z86.19 - Personal history of other infectious and parasitic diseases (ICD- 10) Osteoarthritis ?M19.90 - Unspecified osteoarthritis, unspecified site (ICD-10) Pacemaker ?Z95.0 - Presence of cardiac pacemaker (ICD-10) Hiatal hernia ?K44.9 - Diaphragmatic hernia without obstruction or gangrene (ICD-10) Low back pain ?M54.50 - Low back pain, unspecified (ICD-10) Irregular heart beat ?I49.9 - Cardiac arrhythmia, unspecified (ICD-10) Surgical History History of shoulder replacement ?Z96.619 - Presence of unspecified artificial shoulder joint (ICD-10) S/P rotator cuff repair ?Z98.890 - Other specified postprocedural states (ICD-10) History of colonoscopy ?Z98.890 - Other specified postprocedural states (ICD-10) S/P YANELI-BSO ?Z90.710 - Acquired absence of both cervix and uterus (ICD-10) ?Z90.722 - Acquired absence of ovaries, bilateral (ICD-10) ?Z90.79 - Acquired absence of other genital organ(s) (ICD-10) H/O cardiac catheterization ?Z98.890 - Other specified postprocedural states (ICD-10) H/O arthroscopy of shoulder ?Z98.890 - Other specified postprocedural states (ICD-10) H/O arthroscopy of knee ?Z98.890 - Other specified postprocedural states (ICD-10) History of appendectomy ?Z90.49 - Acquired absence of other specified parts of digestive tract (ICD- 10) History of total knee arthroplasty ?Z96.659 - Presence of unspecified artificial knee joint (ICD-10) Social History Within the past year, how often did you have a drink containing alcohol: month ly or less Smoking status: Former smoker Non-prescribed substance use: denies use Previous occupational history: retired Highest level of school completed/degree received: high school graduate Little interest or pleasure in doing things: not at all Feeling down, depressed, or hopeless: not at all Meds Home Medications and Allergies Home Medications ?Medication ?Instructions ?Recorded ?Confirmed ?Type cholecalciferol (vitamin D3) 125 5,000 unit PO DAILY 02/16/23 10/29/24 History mcg (5,000 unit) tablet (Vitamin D3) flecainide 100 mg tablet 100 mg PO Q12H 02/16/23 10/29/24 History omeprazole 40 mg capsule,delayed 40 mg PO DAILY 02/16/23 10/29/24 History release spironolactone 25 mg tablet 25 mg PO DAILY 02/16/23 10/29/24 History (Aldactone) verapamil 180 mg tablet,extended 180 mg PO Q12H 02/16/23 10/29/24 History release (Calan SR) apixaban 5 mg tablet (Eliquis) 5 mg PO BID 05/11/23 10/29/24 History furosemide 40 mg tablet 40 mg PO DAILY 03/01/24 10/29/24 History naloxone 4 mg/actuation nasal 4 mg intranasal Q3M PRN opioid 05/17/24 10/29/24 Rx spray (Narcan) overdose #2 ea benzonatate 100 mg capsule 100 mg PO TID PRN cough #14 caps 05/25/24 10/29/24 Rx ipratropium 0.5 mg-albuterol 3 mg 3 ml inhalation Q6H PRN shortness 05/25/24 10/29/24 Rx (2.5 mg base)/3 mL nebulization of breath #90 mL soln baclofen 10 mg tablet 10 mg PO TID #90 tabs 10/10/24 10/29/24 Rx hydrocodone 5 mg-acetaminophen 325 1 tab PO TID PRN pain #90 tabs 10/26/24 10/29/24 Rx mg tablet baclofen 10 mg tablet 10 mg PO TID PRN muscle spasm #90 11/08/24 Rx tabs hydrocodone 5 mg-acetaminophen 325 1 tab PO TID PRN pain #90 tabs 11/29/24 Rx mg tablet Allergies Allergy/AdvReac Type Severity Reaction Status Date / Time No Known Drug Allergies Allergy Verified 09/10/24 08:03 Exam Constitutional Documenting provider has reviewed patient's vital signs: yes Common normals: no apparent distress, oriented x3, healthy appearing, alert and well nourished General appearance: cooperative HENMT Common normals: normocephalic, hearing grossly normal bilaterally and moist oral mucous membranes Head and scalp: normocephalic Eye Common normals: PERRL Pupil: PERRL Neck & C-Spine Common normals: full ROM General: normal visual inspection Chest Common normals: inspection of chest normal Respiratory Common normals: normal respiratory effort, no retractions and no use of accessory muscles Back & Pelvis Lumbar spine/lower back: ROM limited, pain with ROM and straight leg raise positive right; no lumbar spinal tenderness Sacroiliac joints: SI joint(s) abnormal SI joint details: tender to palpation and pain elicited by compression of iliac crest maneuver Other: decreased sensation right L4,5,S1 strength 4/5 in RLE 5/5 in LLE Neuro Common normals: oriented x3, CN's II-XII intact bilaterally, moves all extremities, no focal motor deficits, no sensory deficits noted and deep tendon reflexes 2+ bilaterally Sensorium/orientation: alert Motor exam: no movement abnormalities noted Psych Common normals: mental status grossly normal, thought process normal, cooperative, affect normal, speech normal and activity/motor behavior normal Speech: normal speech Thought process: normal thought process Results Additional Findings Additional findings: If on a controlled substance or opioids, I have checked an [place]AR[place] report on this patient and there are no aberrancies noted in the prescribing history.??If on a controlled substance or opioid a drug screen was completed and reviewed within the last year, and if there has not been a drug screen completed we ordered one today to monitor higher risk, state monitored pain medication use. As part of providing excellent, safe, comprehensive care, the following was completed at our patient's visit: 1. A medication reconciliation and review to ensure accurate knowledge of current/active medications, including asking our patients to inform us about any atal-teq-oppefen medications or herbal remedies/nutritional supplements/alternative remedies. 2. A review to specifically ensure our patients have had annual screening for screening for depression, screening for tobacco use, and screening for unhealthy alcohol use. For concerning screenings had a discussion with the patient, provided patient education, and recommended follow-up with primary care provider when appropriate. If patient noted with a risk of falling, they received education on strength, gait, and balance training to prevent future risk of falling. Portions of this note may have been carried over from the previous visit and updated as appropriate. Please note this office utilizes paper charting in addition to the electronic medical record. A list of current medications, vitals, and PMH is available there as the clinical staff outside of myself do not have access to [employer] charting during the clinic day operations. As part of providing quality comprehensive care the current medications, vitals, and PMH were reviewed in the paper chart. Assessment and Plan Assessment and Plan (1) Lumbar stenosis with neurogenic claudication: (2) Lumbar spondylosis: (3) Chronic use of opiate drug for therapeutic purpose: Assessment and Plan: I feel these medications are improving the patient's quality of life and allow them to tolerate activities of daily living as well as participate in recreational activity.? The patient does not report intolerable side effects. The patient is NOT opioid naive and non-pharmacologic and non-opioid treatment has failed to significantly relieve the patient's pain and improve functionality. The patient has a diagnosis that is related to a somatic or visceral pain etiology. ? ?? I reviewed with the patient the potential risks and side effects with the use of? opioid medications including but not limited to respiratory depression,? sedation, and even . Within the last 12 months I have verified the patient has access to naloxone should? these effects occur. The patient was advised to let? their family know they had Naloxone in case they would need to administer? the medication. I advised the patient to avoid the use of any other? sedation substances including alcohol, THC, and benzodiazepines while? taking opioid medications due to the risk of compounding side effects and? detrimental outcomes. within the last 12 months I have reviewed the SALES ACCOUNT COORDINATOR, pain treatment agreement and urine drug screen.? ?? A drug screen was completed within the last year, and no aberrancies were noted regarding their use of controlled substances. The patient understands they are subject to the terms and conditions of the pain contract that they have signed. ? ?? I have checked an [place]ARRS report on this patient today and there are no aberrancies noted in the prescribing history.? Plan right L4,5 L5,S1 TFESI under fluoroscopy, previous lumbar ESIs have provided >50% improvement greater than 3 months continue current medications continue HEP as tolerated PCP to be notified of prolonged repeat steroid injections to monitor pt f/u 2 weeks after injection
== END 2024-12-05 11:00 | disposition home or self-care (01) ==
LOC: PM 10:59
PROVIDERS: PCP Internal Medicine; Visit Provider Nurse Practitioner
DX: M48.062 Spinal stenosis, lumbar region with neurogenic claudication (principal); M47.816 Spondylosis without myelopathy or radiculopathy, lumbar region; Z79.891 Long term (current) use of opiate analgesic
CPT/HCPCS: G0463

== ENCOUNTER 2024-12-17 06:41 | Day surgery (SDC) | payer MEDICARE, SELFPAY ==
--- OUTSIDE RECORDS SUMMARY | 2024-12-17 06:46 | XMS_ITS | CCD ---
Author Organization [facility] CliniSyor Care Team Providers Care Lead Machinist Name Role Phone ZANE MCGUIRE Admitting Unavailable DMITRIY HENNESSY Referring Unavailable LUISANA JOHNSON Primary Care Unavailable ZANE MCGUIRE Attending Unavailable DMITRIY HENNESSY Surgeon Unavailable IA Procedure Practitioner Unavailab Hong Adler Unavailable JOHNSON ., DR LUISANA Jarquin Primary Care Unavailable JOHNSON ., DR LUISANA Jarquin Admitting Unavailable JOHNSON ., DR LUISANA Jarquin Attending Unavailable JOHNSON ., DR LUISANA Jarquin Consulting Unavailable JOHNSON ., DR LUISANA Jarquin Primary Care Unavailable CIRA, H Attending Unavailable FAWWAD, SAHU H Admitting Unavailable FAWWAD, SAHU H Admitting Unavailable FAFRANCY, H Attending Unavailable JOHNSON ., DR LUISANA [...] Admitting Unavailable RIVER ., KAYLEY Attending Unavailable SAN BERNARDINO, DR HONG Morgan Consulting Unavailable JOHNSON ., [...] Care Unavailable FAWWAD, SAHU H Attending Unavailable FAWWAAlysa, H Admitting Unavailable SAMSA ., LUIZ Admitting Unavailable SAMSA ., LUIZ Attending Unavailable SAMSA ., LUIZ Consulting Unavailable JOHNSON ., DR LUISANA Jarquin Primary Care Unavailable THANG Clement Attending Provider [phone] MD Janice Denis Primary Care Provider THANG Clement Attending Provider [phone] Shaikh Denis MD Primary Care Provider Ortega ALEXANDER Attending Unavailable SHAIKH DENIS Referring Unavailable Ortega ALEXANDER Attending Unavailable MD Santos Denisikh Primary Care Provider DO James Jones Attending Provider YOLY Cruz Attending Provider [phone] Luisana Johnson MD Primary Care Provider [phone] Pedro Pablo Cruz MD Unavailable [phone] LUISANA JOHNSON Primary Care Unavailable BOO BUCHANAN Attending Unavailable PEDRO PABLO CRUZ Referring Unavailable LUISANA JOHNSON Primary Care Unavailable BOO BUCHANAN Referring Unavailable Wesley Long MD Primary Care Provider Monster Calvillo NP Unavailable Shaikh Denis MD Primary Care Provider Renny Hansen MD Primary Care Provider Pedro Pablo Cruz PA-C Attending Provider Renny Hansen II Primary Care Provider Pedro Pablo Cruz PA-C Attending Provider Renny Hansen II Referring Provider Katharina Toledo APRN Attending Provider Dmitriy Duque DO Attending Provider [phone] Sakina Cardenas DO Attending Provider Pedro Pablo Cruz Admitting Unavailable Pedro Pablo Cruz Attending Unavailable Fafrancy, Sahu Primary Care Unavailable Pedro Pablo Cruz Admitting Unavailable Anthony, Pedro Pablo Attending Unavailable Renny Hansen Primary Care Unavailable Dmitriy Duque Admitting Unavailable Dmitriy Duque Attending Unavailable Renny Hansen Primary Care Unavailable Sakina Cardenas Jr Admitting Unavailable Sakina Cardenas Jr Attending Unavailable Renny Hansen Primary Care Unavailable Fafrancy, Sahu Primary Care Unavailable Kayley Reeder Admitting Unavailable Kayley Reeder Attending Unavailable Renny Hansen Referring Unavailable Katharina Toledo Admitting Unavail able Katharina Toledo Attending Unavail able Renny Hansen Primary Care Unavailable James Jones Admitting Unavailable James Jones Attending Unavailable Cira, Sahu Primary Care Unavailable James Jones Admitting Unavailable James Jones Attending Unavailable Cira, Sahu Primary Care Unavailable Renny Hansen II Referring Provider Katharina Toledo APRN Attending Provider Renny Hansen MD Unavailable Cindi Cordova Unavailable DMITRIY DUQUE Attending Unavailable RENNY HANSEN Attending Unavailable JR. CARDENAS GEORGE C Attending Unavaila RENNY Barnhart Referring Unavailable JR. CARDENAS GEORGE C Attending Unavaila SHAIKH Mitchell Attending Unavailable SHAIKH DENIS Attending Unavailable SHAIKH DENIS Attending Unavailable SHAIKH DENIS Attending Unavailable PEDRO PABLO CRUZ Attending Unavailable PEDRO PABLO CRUZ Referring Unavailable JR. CARDENAS GEORGE C Attending Unavaila MONSTER Johnson Attending Unavailabl e RENNY HANSEN Attending Unavailable ELEANOR LEAHY Attending Unavailable RENNY HANSEN Attending Unavailable RENNY HANSEN Attending Unavailable SALOME CID Attending Unavailable RENNY HANSEN Referring Unavailable LUISANA CARDOZO Attending Unavailable DMITRIY HENNESSY Referring Unavailable KOLTON ALVA Attending Unavailable KOLTON ALVA Attending Unavailable DEREK HOLT Referring Unavailable DEREK HOLT Attending Unavailable SAKINA CARDENAS Referring Unavailable DEREK HOLT Attending Unavailable DMITRIY HENNESSY Referring Unavailable NICANOR CANNON Attending Unavailable Giedraitis , Andrius Sainz Attending Unavailable Giedraitis , Andrius Alistair Attending Unavailable Giedraitis MD, Andrius Vytautwilma Attending Unavailable Giedraitis MD, Andrius Vytautwilma Attending Unavailable Giedraitis MD, Andrius Vytautas Attending Unavailable Giedraitis , Andrius Vytautas Attending Unavailable Allergies Allergy Classification Reported Allergen(s) Allergy Type Date of Onset Reaction(s) Facility NSAIDs (1 source) meloxicam; Translations: [Mobic] Drug Allergy [facility] Repository Unclassified (1 source) No Known Medication Allergies; Translations: [No Known Medication Allergies] Propensity to adverse reactions (disorder) [facility] Repository (1 source) novacaine; Translations: [novacaine] Propensity to adverse reactions (disorder) 2 [facility] Repository (20 sources) NSAIDs Propensity to adverse reactions 4 HEART [facility] (7 sources) Adhesive agent; Translations: [adhesive] Allergy to substance 4 [facility] (4 sources) NSAIDS (Non-Steroidal Anti-Inflamma; Translations: [NSAIDS (Non-Steroidal Anti-Inflamma] Allergy to substance 4 HEART [facility] (20 sources) Digoxin Drug Allergy 4 [facility] Work Phone: (20 sources) Wound Dressing Adhesive Drug Allergy 4 [facility] Medications Current Medications Medication Drug Class(es) Dates Sig (Normalized) Sig (Original) 8 hr acetaminophen 650 mg extended release oral tablet (20 sources) Start: 09-25-2024 take 1 tablet by mouth every twelve hours Acetaminophen (Tylenol Arthritis Pain) 650 mg tablet extended release Active 650 MG PO Every 12 hours September 25, 2024 12:00am take 2 tablets by mo [facility] every six hours for pain acetaminophen (Tylenol) [...] 1 tablet by mouth at bedtime HYDROcodone-acetaminophen ([place]) 5-325 MG tablet Take 1 tablet by mouth in the morning and 1 tablet in the evening and 1 tablet before bedtime. 06/21/2024 Active Start: 04-11-2024 End: 06-15-2024 take 1 tablet by mouth three times daily as needed for pain HYDROcodone-acetaminophen ([place]) 5-325 MG tablet Indications: Chronic left shoulder pain Take 1 tablet by mouth 3 (three) times a day as needed for severe pain 90 tablet 05/16/2024 06/15/2024 Active Start: 03-01-2024 take 1 tablet by [facility] twice daily acetaminophen-hydrocodone 325 mg-5 mg or al tablet 1 tab(s), Oral, BID, Refill(s) 0 Start Date: 03/01/24 Status: Ordered albuterol 0.833 mg/ml / ipratropium bromide 0.167 mg/ml inhalation solution (10 sources) Anticholinergic, beta2-Adrenergic Agonist Start: 05-25-2024 ipratropium-albuterol [...] day Active cefdinir 300 mg oral capsule (6 sources) Cephalosporin Antibacterial Start: 2024 End: 2024 [...] oral tablet (20 sources) Loop Diuretic Start: 10-29-2024 take 1 tablet by mouth once daily Furosemide 40 mg tablet Active 40 MG PO Daily October 29, 2024 12:00am Start: 03-21-2024 End: 10-04-2024 take 1 tablet [...] Active hydrocortisone valerate 2 mg/ml topical cream (10 sources) Corticosteroid Start: 10-17-2024 hydrocortisone ([place]) 0.2 % cream Indications: Phlebitis of left upper extremity Apply topically 2 (two) times a day 45 g 1 10/17/2024 Active Multiple Vitamins-Minerals (CENTRUM SILVER 50+WOMEN PO) (20 sources) take 1 tablet by mouth in the morning Multiple Vitamins-Minerals (CENTRUM SILVER 50+WOMEN PO) Take 1 tablet by mouth in the morning. Active take [facility] Multiple Vitamins-Minerals (CENTRUM SILVER 50+WOMEN PO) Take 1 tablet by mouth in the morning. 0 Active Multivitamin tablet (4 sources) Start: 09-25-2024 take 1 tablet by [...] 1 07/09/2024 Active take 1 capsule by mo [facility] every twenty-four hours Omeprazole 40 MG 1 capsule Orally Once a day Active potassium chloride 10 meq extended release oral capsule (2 sources) take 1 capsule by mouth every twenty-four hours Potassium Chloride 10 MEQ 1 capsule with food Orally Once a day Active spironolactone 50 mg oral tablet (20 sources) Aldosterone Antagonist Start: 025 take 1 tablet by mouth in the morning spironolactone (Aldactone) 50 MG tablet Take 50 mg by mouth in the morning. 09/24/2024 Active Start: 11-16-2023 End: 10-17-2024 Spironolactone 25 mg tablet Active 25 MG PO November 16, 2023 12:00am 24 hr verapamil hydrochloride 180 mg extended release oral capsule (20 sources) Calcium Channel Ozzy Start: 03-01-2024 take 1 capsule by mouth once daily verapamil 180 mg Cap-ER 180 mg = 1 cap(s), Oral, Daily, Refills(s) 0 Start Date: 03/01/24 Status: Ordered Start: 11-16-2023 take 1 capsule by [facility] every twenty-four hours Verapamil 180 mg capsule,ext rel. pellets 24 hr Active MG PO November 16, 2023 12:00am Start: 02-14-2023 End: 02-14-2024 take 1 capsule by mouth every twenty-four hours in the morning verapamil ER (Verelan) 180 MG 24 hr capsule Take 360 mg by mouth in the morning. 02/14/2023 Active take 1 capsule by mo ut [...] Daily, # 90 tab(s), Refills(s) 0, Pharmacy: [facility]/pharmacy #[id number], 141, cm, 01/11/23 10:30:00 EDT, Height/Length Dosing, [...] by mouth in the morning. 10/04/2024 Discontinued Lidocaine (14 sources) Antiarrhythmic, Amide Local Anesthetic Start: 11-18-2023 [...] Chronic Complication of device; implant or graft (8 sources) 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; Translations: [Pain due to internal orthopedic prosthetic devices, implants and grafts, initial encounter] Onset: 5 05-22-2024 Episodic Conduction disorders (20 sources) Presence of cardiac pacemaker; Translations: [Sinus node dysfunction] Onset: 1 03-01-2024 Chronic Congestive heart failure; nonhypertensive (20 sources) Chronic diastolic (congestive) heart failure; Translations: [Congestive heart failure] Onset: 3 03-01-2024 Chronic Coronary atherosclerosis and other heart disease (20 sources) Atherosclerotic heart disease of [place] coronary artery without angina pectoris; Translations: [Coronary [...] Onset: 5 Chronic Deficiency and other anemia (6 sources) Iron deficiency anemia; Translations: [Iron deficiency anemia, unspecified] Onset: 4 Episodic Deficiency and other anemia (7 sources) Iron deficiency anemia, unspecified; Translations: [Iron deficiency anemia, unspecified] 08-24-2024 Episodic Disorders of lipid metabolism (3 [...] needed; Translations: [Encounter for immunization] 09-19-2024 Episodic Mood disorders (1 source) Depressive disorder [...] Onset: 3 Episodic Other aftercare (1 source) residential (current) use of anticoagulants; Translations: [MECHANIC INSULATOR CURRNT USE 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] Onset: 3 Episodic Other aftercare (1 source) Other intermediate (current) drug therapy; Translations: [OTH MECHANIC INSULATOR CURRENT DRUG THERAPY] Onset: 3 Episodic Other and ill-defined heart disease (20 sources) Diastolic dysfunction; Translations: [Other ill-defined heart diseases] Onset: 4 02-27-2024 Chronic Other connective tissue disease (4 sources) History of reverse prosthetic total arthroplasty [...] injuries and conditions due to external causes (6 sources) Injury of shoulder and upper arm; [...] chronic pain] Chronic Other non-traumatic joint disorders (12 sources) Pain in left shoulder; Translations: [Pain [...] conditions (not mental disorders or infectious disease) (13 sources) Abnormal coagulation profile; Translations: [Encounter for screening mammogram for malignant neoplasm of breast] Onset: 2 Episodic Other upper respiratory infections (9 sources) [...] [COUGH, UNSPECIFIED] Onset: 2 Unclassified (2 sources) Left shoulder pain, unspecified chronicity 10-17-2024 Unclassified (2 sources) PACEMAKER Onset: 4 Urinary tract infections (2 sources) Acute cystitis; Translations: [Acute cystitis with hematuria] 09-19-2024 Episodic Viral infection (1 source) Herpes zoster 05-01-2023 Episodic Comment on above: 05/2019 Past or [...] for closed fracture] Onset: 11-07-2023 11-07-2023 Episodic Lymphadenitis (20 sources) Axillary lymphadenopathy; Translations: [Localized enlarged lymph nodes] Onset: 07-05-2024 07-05-2024 Episodic Mood disorders (20 sources) Mood disorders [...] COUGH, UNSPECIFIED; Translations: [COUGH, UNSPECIFIED] Onset: 03-30-2022 Unclassified (2 sources) History of reverse prosthetic total arthroplasty of left shoulder 11-07-2024 Results Test Name Value Interpretation Reference Range Facility C-REACTIVE PROTEINon 025 C REACTIVE PROTEIN (MG/L) IN SER/PLAS 9.6 mg/L High <=5.0 [facility] Comment on above: Result Comment: Test ing performed using a new methodology, turbidimetry. Normal ranges have been updated. Old normal range was <8 mg/L. Performed By: #### L [id number] ####[facility] (BEAKER)[address] [place] [address] CBC WITH AUTO DIFFERENTIALon 11-27-2024 Basophils (Bld) [#/Vol] 0.07 10*3/uL Normal 0.00-0.20 [facility] Comment on above: Performed By: #### L [id number] ####[facility] ([facility]AKER)[address] [place] [address] Basophils/100 WBC (Bld) 0.7 % Normal 0.0-1.0 [facility] Comment on above: Performed By: #### L [id number] ####[facility] (BEAKER)[address] [place] [address] Eosinophils (Bld) [#/Vol] 0.13 10*3/uL Normal 0.00-0.50 [facility] Comment on above: Performed By: #### L [id number] ####[facility] (BEAKER)[address] [place] [address] Eosinophils/100 WBC (Bld) 1.2 % Normal 0.0-6.0 [facility] Comment on above: Performed By: #### L [id number] ####[facility] (BEAKER)[address] [place] [address] Erythrocyte distribution width (RBC) [Ratio] 17.0 % High 11.5-15.0 [facility] Comment on above: Performed By: #### L [id number] ####[facility] (BEAKER)[address] [place] [address] ERYTHROCYTE MEAN CORPUSCULAR HEMOGLOBIN CONCENTRATION (G/DL) BY AUTOMATED 30.8 g/dL Low 32.0-35.0 [facility] Comment on above: Performed By: #### L [id number] ####[facility] (BEAKER)[address] [place] [address] Hematocrit (Bld) [Volume fraction] 38.6 % Normal 36.0-45.0 [facility] Comment on above: Performed By: #### L [id number] ####[facility] (BEAKER)[address] [place] [address] Hemoglobin (Bld) [Mass/Vol] 11.9 g/dL Low 12.0-15.0 [facility] Comment on above: Performed By: #### L [id number] ####[facility] (BEAKER)[address] [place] [address] Immature granulocytes (Bld) [#/Vol] 0.15 10*3/uL Normal 0.00-0.20 [facility] Comment on above: Performed By: #### L [id number] ####[facility] (BEAKER)[address] [place] [address] Immature granulocytes/100 WBC (Bld) 1.4 % High 0.0-1.0 [facility] Comment on above: Performed By: #### L [id number] ####[facility] (BEAKER)[address] [place] [address] Lymphocytes (Bld) [#/Vol] 2.18 10*3/uL Normal 1.20-4.00 [facility] Comment on above: Performed By: #### L [id number] ####[facility] (BEAKER)[address] [place] [address] Lymphocytes/100 WBC (Bld) 20.4 % Normal 20.0-45.0 [facility] Comment on above: Performed By: #### L [id number] ####[facility] (BEAKER)[address] [place] [address] MCH (RBC) [Entitic mass] 26.0 pg Low 27.0-33.0 [facility] Comment on above: Performed By: #### L [id number] ####[facility] (BEAKER)[address] [place] [address] MCV (RBC) [Entitic vol] 84.5 fL Normal 82.0-98.0 [facility] Comment on above: Performed By: #### L [id number] ####[facility] (BEAKER)[address] [place] [address] Monocytes (Bld) [#/Vol] 0.84 10*3/uL Normal 0.10-1.00 [facility] Comment on above: Performed By: #### L [id number] ####[facility] ([facility])[address] [place] [address] Monocytes/100 WBC (Bld) 7.9 % Normal 5.0-12.0 [facility] Comment on above: Performed By: #### L [id number] ####[facility] ([facility])[address] [place] [place] [address] Neutrophils (Bld) [#/Vol] 7.33 10*3/uL Normal 1.60-7.60 [facility] Comment on above: Performed By: #### L [id number] ####[facility] ([facility])[address] [address] Neutrophils/100 WBC (Bld) 68.4 % Normal 40.0-72.0 [facility] Comment on above: Performed By: #### L [id number] ####[facility] ([facility])[address] [place] [address] NRBC (PER 100 WBCS) BY AUTOMATED COUNT 0.0 % Normal 0 [facility] Comment on above: Performed By: #### L [id number] ####[facility] ([facility])[address] [place] [address] PLATELETS (10*3/UL) IN BLOOD AUTOMATED COUNT 411 10*3/uL High 150-400 [facility] Comment on above: Performed By: #### L [id number] ####[facility] ([facility])[address] [place] [address] RBC (Bld) [#/Vol] 4.57 10*6/uL Normal 3.80-5.00 [facility] Comment on above: Performed By: #### L [id number] ####[facility] ([facility] [place] [address] WBC (Bld) [#/Vol] 10.70 10*3/uL High 4.00-10.60 [facility] Comment on above: Performed By: #### L [id number] ####[facility] (BEAKER)[address] [place] [address] Follow-Upon 11-27-2024 Follow-Up [id number] Breann Starks T 1945 Provider Department Center 11/27/2024 DEREK NEUMANN MP ORTHO MPORTHO Family History Adopted: Yes Family history unknown: Yes Family Status - Relation Status Age at Mother Father Level of Service:40882 [place] OFFICE/OUTPATIENT ESTABLISHED LOW MDM 20 MIN Reason for Visit and Comments: Follow-up [[id number]] [facility] Labon 11-27-2024 Lab [id number] Kj Starksa T 1945 Provider Department Center 11/27/2024 2244-[facility] LAB RESOURCE MP LEATHA Jaeger Family History Adopted: Yes Family history unknown: Yes Family Status - Relation Status Age at Mother Father [facility] SEDIMENTATION RATEon 025 SEDIMENTATION RATE, ERYTHROCYTE 96 mm/hr High <30 [facility] Comment on above: Performed By: #### L [id number] ####[facility] (BEAKER)[address] [place] [address] Orders Onlyon 11-19-2024 Orders Only [id number] Wojj,Breann T 1945 F Date Provider Department Center 11/19/2024 Olga9-JAMES ALLEN MP ORTHO MPORTHO Family History Adopted: Yes Family history unknown: Yes Family Status - Relation Status Age at Mother Father [facility] Orders Onlyon 11-16-2024 Orders Only [id number] Woyan,Breann T 1945 F Date Provider Department Center 11/16/2024 [id number]-DVVLFWUBAKMCIVAN COHEN ORTHO MPORTHO Family History Adopted: Yes Family history unknown: Yes Family Status - Relation Status Age at Mother Father [facility] 36on 11-15-2024 38 Patient was informed and she is going to [facility] and states they do not have a radiologist to do the aspiration for the order sent over by Dr. Holt and patient will have to go somewhere else. Normal [facility] BODY FLUID CULTUREon 025 Bacteria identified Cx Nom (Unsp spec) STREPTOCOCCUS SANGUINIS Abnormal [facility] Comment on above: Result Comment: Isol ated from Broth Culture Streptococcus sanguinis Presumptive Identification Performed By: #### L [id number] ####[facility] (BEAKER)[address] [place] [address] GRAM STAIN RESULT Normal [facility] Comment on above: Result Comment: Many Polymorphonuclear leukocytes No organisms seen Performed By: #### L [id number] ####[facility] (BEAKER)[address] [place] [address] Office Visiton 11-13-2024 Follow-up visit [id number] KevinjjBreann T 1945 F Date Provider Department Center 11/13/2024 DEREK NEUMANN MP Family History Adopted: Yes Family history unknown: Yes Family Status - Relation Status Age at Mother Father Level of Service:73118 [place] OFFICE/OUTPATIENT NEW LOW MDM 30 MINUTES (25,GC) Reason for Visit and Comments: Pain [136] Normal [facility] Orders Onlyon 11-13-2024 Orders Only [id number] Breann Starks T 1945 Provider Department Center 11/13/2024 [id number]-ZAASHXTGTMARIELOS MARY MP ORTHO CHIDI Family History Adopted: Yes Family history unknown: Yes Family Status - Relation Status Age at Mother Father Normal [facility] 36on 11-08-2024 36 Patient was schedule Normal [facility] 36 Patient needs an elisabet t layla poss infection per dr cardenas. DENSITY CONTROL PUNCHER to dr holt. Normal [facility] Anisocytosis LM Ql (Bld)Orde red By: Sakina Cardenas on 10-24-2024 Anisocytosis Ql (Bld) Anisocytosis [Presence] in Blood by Light microscopy [facility] Basophils Auto (Bld) [#/Vol] Ordered By: Sakina Cardenas on 10-24-2024 Basophils (Bld) [#/Vol] Automated basophil count [facility] Basophils/100 WBC Auto (Bld) Ordered By: Sakina Cardenas on 10-24-2024 Basophils/100 WBC (Bld) Automated basophil % [facility] Basophils/100 WBC Manual cnt (Bld)Ordered By: Sakina Cardenas on 10-24-2024 Basophils/100 WBC (Bld) Basophils/100 leukocytes in Blood by Manual count 0-2 [facility] C reactive protein [Mass/vol ume] in Serum or PlasmaOrdered By: Sakina Cardenas on 10-24-2024 CRP [Mass/Vol] C reactive protein [Mass/volume] in Serum or Plasma High 0.0-0.5 [facility] C-Reactive Proteinon 025 C-Reactive Protein 1.4 mg/dL High 0.0-0.5 [facility] Comment on above: Result Comment: PERF ORMED BY: [place] [address] PATHOLOGIST IN [employer]OCI[employer] KATHLEEN RAMOS M.D. Performed By: #### C RP #### [address] CRP [Mass/Vol]on 10-24-2024 C-REACTIVE PROTEIN 1.4 mg/dL High 0.0 - 0.5 mg/dL [facility] Interpretation and review of laboratory results Abnormal [facility] Diff and CBCon 10-24-2024 Anisocytosis Ql (Bld) Slight Normal [facility] Comment on above: Performed By: #### D IFF CBC, ESR #### [address] Basophils/100 WBC (Bld) 2 % Normal 0-2 [facility] Comment on above: Performed By: #### D IFF CBC, ESR #### [facility] [address] [place] [address] Erythrocyte distribution width (RBC) [Ratio] 23.9 % High 11.9-15.3 [facility] Comment on above: Performed By: #### D IFF CBC, ESR #### [facility] [address] [place] [address] Giant Platelet Tally 1 /100{WBC} Normal [facility] Comment on above: Performed By: #### D IFF CBC, ESR #### [address] Hematocrit (Bld) [Volume fraction] 35.1 % Normal 34.0-46.4 [facility] Comment on above: Performed By: #### D IFF CBC, ESR #### [facility] [address] [place] [address] Hemoglobin (Bld) [Mass/Vol] 11.4 g/dL Low 11.8-15.4 [facility] Comment on above: Performed By: #### D IFF CBC, ESR #### [address] Hypochromasia Slight Normal [facility] Comment on above: Performed By: #### D IFF CBC, ESR #### [address] Lymphocytes/100 WBC (Bld) 19 % Normal 18-42 [facility] Comment on above: Performed By: #### D IFF CBC, ESR #### [address] MCH (RBC) [Entitic mass] 26.9 pg Normal 24.7-34.3 [facility] [facility] Comment on above: Performed By: #### D IFF CBC, ESR #### [address] MCV (RBC) [Entitic vol] 83.2 fL Normal 80-100 [facility] Comment on above: Performed By: #### D IFF CBC, ESR #### [address] Mean Corpuscular HGB Conc 32.4 g/dL Normal 32.0-35.0 [facility] Comment on above: Performed By: #### D IFF CBC, ESR #### [place] [address] [place] Monocytes/100 WBC (Bld) 6 % Normal 2-11 [facility] Comment on above: Performed By: #### D IFF CBC, ESR #### [facility] [address] [place] [id number] [place] Platelet Estimate Normal Normal Normal [facility] Comment on above: Performed By: #### D IFF CBC, ESR #### [facility] [address] [place] [address] [place] Platelet mean volume (Bld) [Entitic vol] 7.0 fL Normal 6.3-10.7 [facility] Comment on above: Performed By: #### D IFF CBC, ESR #### [facility] [address] [place] [address] [place] Platelet Morphology Normal Normal Normal The [facility] Comment on above: Performed By: #### D IFF CBC, ESR #### [facility] [address] [place] [id number] [place] Platelets (Bld) [#/Vol] 403 10*3/uL Normal 150-450 The [facility] Comment on above: Performed By: #### D IFF CBC, ESR #### [facility] [address] Polychromasia Moderate Normal The [facility] Comment on above: Performed By: #### D IFF CBC, ESR #### [facility] [address] [place] [id number] [place] RBC (Bld) [#/Vol] 4.21 10*6/uL Normal 3.60-5.00 [facility] Comment on above: Performed By: #### D IFF CBC, ESR #### [facility] [address] [place] [id number] [place] RBC morphology finding Nom (Bld) Normal Normal Normal [facility] Comment on above: Performed By: #### D IFF CBC, ESR #### [facility] [address] [place] [id number] [place] Segmented neutrophils/100 WBC (Bld) 73 % High 50-70 [facility] Comment on above: Performed By: #### D IFF CBC, ESR #### [facility] [address] [place] [id number] [place] WBC (Bld) [#/Vol] 11.0 10*3/uL Normal 3.8-11.6 [facility] Comment on above: Performed By: #### D IFF CBC, ESR #### [facility] [address] Eosinophils Auto (Bld) [#/Vo l]Ordered By: Sakina Cardenas on 10-24-2024 Eosinophils (Bld) [#/Vol] Automated eosinophil count [facility] Eosinophils/100 WBC Auto (Bl d)Ordered By: Sakina Cardenas on 10-24-2024 Eosinophils/100 WBC (Bld) Automated eosinophil % [facility] Erythrocyte Sedimentation Ra aren 10-24-2024 ESR (Bld) [Velocity] 104 mm/h High 0-29 [facility] Comment on above: Result Comment: PERF ORMED BY: [facility] [address] [place] [address] PATHOLOGIST IN STORE MARKETING ASSOCIATE KATHLEEN RAMOS M.D. Performed By: #### D IFF CBC, ESR ####[facility] [id number] Erythrocyte distribution wid th Auto (RBC) [Ratio]Ordered By: Sakina Cardenas on 10-24-2024 Erythrocyte distribution width (RBC) [Ratio] Erythrocyte distribution width [Ratio] by Automated count High 11.9-15.3 [facility] Erythrocyte morphology findi ng [Identifier] in BloodOrdered By: Sakina Cardenas on 10-24-2024 RBC morphology finding Nom (Bld) RBC morphology Normal [facility] Erythrocyte sedimentation ra te by Photometric methodOrdered By: Sakina Cardenas on 10-24-2024 ESR Photometric method (Bld) [Velocity] Erythrocyte sedimentation rate by Photometric method High 0-29 [facility] Giant platelets/100 leukocyt es [Ratio] in Blood by Manual countOrdered By: Sakina Cardenas on 10-24-2024 Giant platelets/100 WBC Manual cnt (Bld) [Ratio] Giant platelets/100 leukocytes [Ratio] in Blood by Manual count [facility] Hematocrit Auto (Bld) [Volum e fraction]Ordered By: Sakina Cardenas on 10-24-2024 Hematocrit (Bld) [Volume fraction] Hematocrit [Volume Fraction] of Blood by Automated count 34.0-46.4 [facility] Hemoglobin [Mass/volume] in BloodOrdered By: Sakina Cardenas on 10-24-2024 Hemoglobin (Bld) [Mass/Vol] Hemoglobin [Mass/volume] in Blood Low 11.8-15.4 [facility] Hypochromia LM Ql (Bld)Order ed By: Sakina Cardenas on 10-24-2024 Hypochromia Ql (Bld) Hypochromia [Presence] in Blood by Light microscopy [facility] Laboratory - Hematology and Cell countson 10-24-2024 Erythrocyte distribution width (RBC) [Ratio] 23.9 % High 11.9 - 15.3 % [facility] ESR (Bld) [Velocity] 104 mm/h High 0 - 29 [facility] Hematocrit (Bld) [Volume fraction] 35.1 % 34.0 - 46.4 % [facility] Hemoglobin (Bld) [Mass/Vol] 11.4 g/dL Low 11.8 - 15.4 g/dL [facility] MCH (RBC) [Entitic mass] 26.9 pg 24.7 - 34.3 pg [facility] MCHC (RBC) [Mass/Vol] 32.4 g/dL 32.0 - 35.0 g/dL [facility] MCV (RBC) [Entitic vol] 83.2 fL 80 - 100 fL [facility] Platelet mean volume (Bld) [Entitic vol] 7 fL 6.3 - 10.7 fL [facility] Platelets (Bld) [#/Vol] 403 10*3/uL 150 - 450 10*3/uL [facility] WBC (Bld) [#/Vol] 11 10*3/uL 3.8 - 11.6 10*3/uL [facility] Laboratory - Urinalysison RBC LM.HPF (Urine sed) [#/Area] 4.21 10*6/uL 3.60 - 5.00 10*6/uL [facility] WBC LM.HPF (Urine sed) [#/Area] 11 10*3/uL 3.8 - 11.6 10*3/uL [facility] Leukocytes [#/volume] correc aristeo for nucleated erythrocytes in Blood by Automated counOrdered By: Sakina Cardenas on 10-24-2024 WBC corrected for nucl RBC Auto (Bld) [#/Vol] Leukocytes [#/volume] corrected for nucleated erythrocytes in Blood by Automated coun 3.8-11.6 [facility] Lymphocytes Auto (Bld) [#/Vo l]Ordered By: Sakina Cardenas on 10-24-2024 Lymphocytes (Bld) [#/Vol] Lymphocytes [#/volume] in Blood by Automated count [facility] Lymphocytes/100 WBC Auto (Bl d)Ordered By: Sakina Cardenas on 10-24-2024 Lymphocytes/100 WBC (Bld) Lymphocytes/100 leukocytes in Blood by Automated count [facility] Lymphocytes/100 WBC Manual c nt (Bld)Ordered By: Sakina Cardenas on 10-24-2024 Lymphocytes/100 WBC (Bld) Lymphocytes/100 leukocytes in Blood by Manual count 18-42 [facility] MCH Auto (RBC) [Entitic mass ]Ordered By: Sakina Cardenas on 10-24-2024 MCH (RBC) [Entitic mass] MCH [Entitic mass] by Automated count 24.7-34.3 [facility] MCHC Auto (RBC) [Mass/Vol]Or dered By: Sakina Cardenas on 10-24-2024 MCHC (RBC) [Mass/Vol] MCHC [Mass/volume] by Automated count 32.0-35.0 [facility] MCV Auto (RBC) [Entitic vol] Ordered By: Sakina Cardenas on 10-24-2024 MCV (RBC) [Entitic vol] MCV [Entitic volume] by Automated count 80-100 [facility] Monocytes Auto (Bld) [#/Vol] Ordered By: Sakina Cardenas on 10-24-2024 Monocytes (Bld) [#/Vol] Automated blood monocyte count [facility] Monocytes/100 WBC Auto (Bld) Ordered By: Sakina Cardenas on 10-24-2024 Monocytes/100 WBC (Bld) Automated monocyte % [facility] Monocytes/100 WBC Manual cnt (Bld)Ordered By: Sakina Cardenas on 10-24-2024 Monocytes/100 WBC (Bld) Monocytes/100 leukocytes in Blood by Manual count 2-11 [facility] Neutrophils Auto (Bld) [#/Vo l]Ordered By: Sakina Cardenas on 10-24-2024 Neutrophils (Bld) [#/Vol] Neutrophils [#/volume] in Blood by Automated count [facility] Neutrophils/100 WBC Auto (Bl d)Ordered By: Sakina Cardenas on 10-24-2024 Neutrophils/100 WBC (Bld) Automated neutrophil % [facility] No Panel Informationon 10-24 Interpretation and review of laboratory results Abnormal [facility] Nucleated erythrocytes [Pres ence] in Blood by Automated countOrdered By: Sakina Cardenas on 10-24-2024 Nucleated RBC Auto Ql (Bld) Nucleated erythrocytes [Presence] in Blood by Automated count [facility] Platelet adequacy [Presence] in Blood by Light microscopyOrdered By: Sakina Cardenas on 10-24-2024 Platelets LM Ql (Bld) Platelet adequacy [Presence] in Blood by Light microscopy Normal [facility] Platelet mean volume Auto (B ld) [Entitic vol]Ordered By: Sakina Cardenas on 10-24-2024 Platelet mean volume (Bld) [Entitic vol] Platelet mean volume [Entitic volume] in Blood by Automated count 6.3-10.7 [facility] Platelet morphology finding [Identifier] in BloodOrdered By: Sakina Cardenas on 10-24-2024 Platelet morphology finding Nom (Bld) Platelet morphology finding [Identifier] in Blood Normal [facility] Platelets Auto (Bld) [#/Vol] Ordered By: Sakina Cardenas on 10-24-2024 Platelets (Bld) [#/Vol] Platelets [#/volume] in Blood by Automated count 150-450 [facility] Polychromasia [Presence] in Blood by Light microscopyOrdered By: Sakina Cardenas on 10-24-2024 Polychromasia LM Ql (Bld) Polychromasia [Presence] in Blood by Light microscopy [facility] RBC Auto (Bld) [#/Vol]Ordere d By: Sakina Cardenas on 10-24-2024 RBC (Bld) [#/Vol] Erythrocytes [#/volume] in Blood by Automated count 3.60-5.00 [facility] Segmented neutrophils/100 WB C Manual cnt (Bld)Ordered By: Sakina Cardenas on 10-24-2024 Segmented neutrophils/100 WBC (Bld) Manual blood segmented neutrophils/100 leukocytes High 50-70 [facility] WBC Auto (Bld) [#/Vol]Ordere d By: Sakina Cardenas on 10-24-2024 WBC (Bld) [#/Vol] Leukocytes [#/volume ] in Blood by Automated count 3.8-11.6 [facility] MM diagnostic mammo BI w/CAD on 10-16-2024 MM diagnostic mammo BI w/CAD [facility] Main [place] [address] [place] [address] Ultrasound Report Signed Patient: Breann Starks MR#: [id number] : 1945 Acct:[id number] Age/Sex: 78 / F ADM Date: 10/16/24 Loc: [facility] Room: Type: [facility] Attending Dr: Dmitriy Duque DO Ordering Provider: Dmitriy Duque DO Date of Service: 10/16/24 US/US axilla: R92.8 ([id number]) MM/MM diagnostic mammo BI w/CAD: ENLARGED LT AXILLARY LYMPH NODE Copies to: Dmitriy Duque DO CLINICAL DATA: Abnormal lymph node seen on CT left shoulder study. BilateralDIAGNOSTIC MAMMOGRAM - WITH TOMOSYNTHESIS AND CAD , rightLIMITED BREAST ULTRASOUND COMPARISON:CT left shoulder 10/02/2024 Tomosynthesis imaging was [...] THE LEFT BREAST WITH PROMINENT AXILLARY LYMPH NODES. GIVEN THE SKIN CHANGES, A THROMBOPHLEBITIS IS SUSPECTED [...] Impression dictated by: Francisco J Benton Jr., D.O.10/16/2024 2:20 PM Dictation Location: [facility] Tech: Ghazal Barber Transcribed By: STAR 10/16/24 1420 Dictated By: Francisco J Benton Jr, DO 10/16/24 1343 Signed By: 10/16/24 1420 Normal [facility] 36on 10-11-2024 36 Regarding labs (from 10/03/24) and [...] BMP in 1 week. 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 She verbalized understanding. Normal [facility] CA ECHO DOPPLER COMPLETEon 0 10-09-[address] [address] Cardiology Report Signed Patient: BREANN STARKS MR#: [id number] : 1945 Acct:[id number] Age/Sex: 78 / F ADM Date: 10/09/24 Loc: CARD Attending Dr: Kolton Alva M.D. Ordering Physician: Kolton Alva M.D. Date of Service: 10/09/24 Procedure(s): CA echo doppler complete Accession Number(s): [id number] cc: RENNY HANSEN ; Kolton Alva M.D. Patient Name: BREANN STARKS MR#: [id number] : 1945 Exam Date: 10/09/2024 Ordering Doctor: [...] Area (VTI): 1.49 cm2, 1.49 cm2 Deceleration [place]: 1.68 m/s2 Pressure Half-Time: 622.32 ms Peak [...] by: Sakina Evans (more content not included)... [facility] Radiology, Radiologist, - 10/09/[address] [address] Cardiology Report Signed Patient: BREANN STARKS MR#: [id number] : 1945 Acct:[id number] Age/Sex: 78 / F ADM Date: 10/09/24 Loc: CARD Attending Dr: Kolton Alva M.D. Ordering Physician: Kolton Alva M.D. Date of Service: 10/09/24 Procedure(s): CA echo doppler complete Accession Number(s): [id number] cc: RENNY HANSEN ; Kolton Alva M.D. Patient Name: BREANN STARKS MR#: [id number] : 1945 Exam Date: 10/09/2024 Ordering Doctor: [...] Area (VTI): 1.49 cm2, 1.49 cm2 Deceleration [place]: 1.68 m/s2 Pressure Half-Time: 622.32 ms Peak [...] SALAZAR Signed By: 10/09/241846 DD/ 44 TD/TT: Fish Liver Sorter: [facility] Radiology Study observation (narrative) [facility] CA ECHO DOPPLER COMPLETEOrde red By: Radiologist Radiology on 10-09-2024 [facility] Work Phone: ALL BASIC METABOLIC PANELon 10-03-2024 Anion gap [Moles/Vol] 12.4 mmol/L [facility] Calcium [Mass/Vol] 9.2 mg/dL 8.5 - 10. 1 mg/dL [facility] Chloride [Moles/Vol] 104 mmol/L 98 - 10 7 mmol/L [facility] CO2 [Moles/Vol] 27.8 mmol/L 21.0 - 32.0 mmol/L [facility] Creatinine [Mass/Vol] 0.73 mg/dL 0.55 - 1.02 mg/dL [facility] GFR/1.73 sq M.predicted CKD-EPI (S/P/Bld) [Vol rate/Area] >60 >=60 mL/min/1.73m 2 [facility] Glucose [Mass/Vol] 97 mg/dL 74 - 106 mg/dL [facility] Potassium [Moles/Vol] 4.2 mmol/L 3.5 - 5.1 mmol/L [facility] Sodium [Moles/Vol] 140 mmol/L 136 - 145 mmol/L [facility] TBH EGFR-NON AF SUDANESE >60 >=60 mL/min/1.73m 2 [facility] Urea nitrogen [Mass/Vol] 16 mg/dL 7.0 - 18.0 mg/dL [facility] Urea nitrogen/Creatinine [Mass ratio] 21.9 mg/mg [facility] ALL LIPID PROFILE (FASTING)o n 10-03-2024 CHOL HDL RATIO 2.2 [facility] Comment on above: 3.3 - 4.4 LOW RISK 4.4 - 7.1 AVERAGE RISK 7.1 - 11.0 MODERATE RISK >11.0 HIGH RISK Cholesterol [Mass/Vol] 130 mg/dL NINF - 200 mg/dL [facility] Cholesterol in HDL [Mass/Vol] 59 mg/dL 40 - 60 mg/dL [facility] Comment on above: > or =60 mg/dl - LOW CARDIOVASCULAR RISK <40 mg/dl - HIGH CARDIOVASCULAR RISK Magnesium [Mass/Vol] 56.8 mg/dL [facility] Comment on above: <100 mg/dl OPTIMAL 100-129 mg/dl NEAR OR ABOVE OPTIMAL 130-159 mg/dl BORDERLINE HIGH 160-189 mg/dl HIGH >190 mg/dl VERY HIGH Magnesium [Mass/Vol] 14.2 mg/dL [facility] Triglyceride [Mass/Vol] 71 mg/dL NINF - 150 mg/dL [facility] No Panel Informationon 10-03 [facility] Anisocytosis LM Ql (Bld)Orde red By: Katharina Toledo on 10-02-2024 Anisocytosis Ql (Bld) Anisocytosis [Presence] in Blood by Light microscopy [facility] Basophils Auto (Bld) [#/Vol] Ordered By: Katharina Toledo on 10-02-2024 Basophils (Bld) [#/Vol] Automated basophil count 0.0-0.2 [facility] Basophils/100 WBC Auto (Bld) Ordered By: Katharina Toledo on 10-02-2024 Basophils/100 WBC (Bld) Automated basophil % . [facility] CT shoulder LT w conon 10-02 CT shoulder LT w con [facility] [place] [address] CT Scan Report Signed Patient: Breann Starks MR#: [id number] : 1945 Acct:[id number] Age/Sex: 78 / F ADM Date: 10/02/24 [facility]: [facility] Dr: Katharina Toledo APRN Copies to: Katharina Toledo APRN Ordering Provider: [...] Etienne Rhodes M.D.10/02/2024 4:14 PM Dictation Location: [place] [address] Transcribed By: [facility] 10/02/24 1614 Dictated By: Etienne Rhodes DO 10/02/24 1610 Signed By: 10/02/24 1614 Normal [facility] Creatinine (Bld) [Mass/Vol]O rdered By: Katharina Toledo on 10-02-2024 Creatinine [Mass/Vol] Whole blood creatinine measurement 0.6-1.3 [facility] Comment on above: ER/ESD physician is notified/shown all ISTAT results.Critical values may be confirmed by laboratory testing ifdeemed necessary by ER attending doctor. Eosinophils Auto (Bld) [#/Vo l]Ordered By: Katharina Toledo on 10-02-2024 Eosinophils (Bld) [#/Vol] Automated eosinophil count 0.0-0.45 [facility] Eosinophils/100 WBC Auto (Bl d)Ordered By: Katharina Toledo on 10-02-2024 Eosinophils/100 WBC (Bld) Automated eosinophil % . [facility] Erythrocyte distribution wid th Auto (RBC) [Ratio]Ordered By: Katharina Toledo on 10-02-2024 Erythrocyte distribution width (RBC) [Ratio] Erythrocyte distribution width [Ratio] by Automated count High 11.9-15.3 [facility] Erythrocyte morphology findi ng [Identifier] in BloodOrdered By: Katharina Toledo on 10-02-2024 RBC morphology finding Nom (Bld) RBC morphology [facility] Ferritinon 10-02-2024 Ferritin [Mass/Vol] 54.8 ng/mL Normal 11.0-306.8 [facility] Comment on above: Result Comment: PERF ORMED BY: [place] [address] PATHOLOGIST IN STORE MARKETING ASSOCIATE KATHLEEN RAMOS M.D. Performed By: #### S CAN CBC, FE and TIBC, ARISTIDES #### [facility] [address] Ferritin [Mass/volume] in Se rum or PlasmaOrdered By: Katharina Toledo on 10-02-2024 Ferritin [Mass/Vol] Ferritin [Mass/volume] in Serum or Plasma 11.0-306.8 [facility] Hematocrit Auto (Bld) [Volum e fraction]Ordered By: Katharina Toledo on 10-02-2024 Hematocrit (Bld) [Volume fraction] Hematocrit [Volume Fraction] of Blood by Automated count Low 34.0-46.4 [facility] Hemoglobin [Mass/volume] in BloodOrdered By: Katharina Toledo on 10-02-2024 Hemoglobin (Bld) [Mass/Vol] Hemoglobin [Mass/volume] in Blood Low 11.8-15.4 [facility] Hypochromia LM Ql (Bld)Order ed By: Katharina Toledo on 10-02-2024 Hypochromia Ql (Bld) Hypochromia [Presence] in Blood by Light microscopy [facility] ISTAT XRAY CREon 10-02-2024 Creatinine [Mass/Vol] 0.7 mg/dL 0.6 - 1.3 mg/dL [facility] Comment on above: ER/ESD physician is notified/shown all ISTAT results. Critical values may be confirmed by laboratory testing if deemed necessary by ER attending doctor. ISTAT GFR [facility] ISTAT XRay CREon 10-02-2024 Creatinine [Mass/Vol] 0.7 mg/dL Normal 0.6-1.3 [facility] Comment on above: Result Comment: ER/E SD physician is notified/shown all ISTAT results. Critical values may be confirmed by laboratory testing if deemed necessary by ER attending doctor. Performed By: #### I SCRE #### [address] ISTAT GFR >60.0 Normal [facility] Comment on above: Result Comment: PERF ORMED BY: [place] [address] PATHOLOGIST IN STORE MARKETING ASSOCIATE KATHLEEN RAMOS M.D. Performed By: #### I SCRE #### [address] Iron [Mass/volume] in Serum or PlasmaOrdered By: Katharina Toledo on 10-02-2024 Iron [Mass/Vol] Iron [Mass/volume] i n Serum or Plasma Low 50-212 [facility] Iron and TIBC Profileon 09-13 % Iron Saturation 8.7 % Low 20-50 [facility] Comment on above: Performed By: #### S CAN CBC, FE and TIBC, ARISTIDES #### [address] Iron [Mass/Vol] 36 ug/dL Low 50-212 [facility] Comment on above: Performed By: #### S CAN CBC, FE and TIBC, ARISTIDES #### [address] Total Iron Binding Capacity 413 ug/dL Normal 255-450 [facility] Comment on above: Performed By: #### S CAN CBC, FE and TIBC, ARISTIDES #### [address] Transferrin [Mass/Vol] 295 mg/dL Normal 203-362 [facility] Comment on above: Performed By: #### S CAN CBC, FE and TIBC, ARISTIDES #### [place] [address] [place] Leukocytes [#/volume] correc aristeo for nucleated erythrocytes in Blood by Automated counOrdered By: Katharina Toledo on 10-02-2024 WBC corrected for nucl RBC Auto (Bld) [#/Vol] Leukocytes [#/volume] corrected for nucleated erythrocytes in Blood by Automated coun 3.8-11.6 [facility] Lymphocytes Auto (Bld) [#/Vo l]Ordered By: Katharina Toledo on 10-02-2024 Lymphocytes (Bld) [#/Vol] Lymphocytes [#/volume] in Blood by Automated count 1.00-4.8 [facility] Lymphocytes/100 WBC Auto (Bl d)Ordered By: Katharina Toledo on 10-02-2024 Lymphocytes/100 WBC (Bld) Lymphocytes/100 leukocytes in Blood by Automated count . [facility] MCH Auto (RBC) [Entitic mass ]Ordered By: Katharina Toledo on 10-02-2024 MCH (RBC) [Entitic mass] MCH [Entitic mass] by Automated count 24.7-34.3 [facility] MCHC Auto (RBC) [Mass/Vol]Or dered By: Katharina Toledo on 10-02-2024 MCHC (RBC) [Mass/Vol] MCHC [Mass/volume] by Automated count 32.0-35.0 [facility] MCV Auto (RBC) [Entitic vol] Ordered By: Katharina Toledo on 10-02-2024 MCV (RBC) [Entitic vol] MCV [Entitic volume] by Automated count 80-100 [facility] Microcytes LM Ql (Bld)Ordere d By: Katharina Toledo on 10-02-2024 Microcytes Ql (Bld) Microcytes [Presence ] in Blood by Light microscopy [facility] Monocytes Auto (Bld) [#/Vol] Ordered By: Katharina Toledo on 10-02-2024 Monocytes (Bld) [#/Vol] Automated blood monocyte count 0.0-0.8 [facility] Monocytes/100 WBC Auto (Bld) Ordered By: Katharina Toledo on 10-02-2024 Monocytes/100 WBC (Bld) Automated monocyte % . [facility] Neutrophils Auto (Bld) [#/Vo l]Ordered By: Katharina Toledo on 10-02-2024 Neutrophils (Bld) [#/Vol] Neutrophils [#/volume] in Blood by Automated count 1.8-7.7 [facility] Neutrophils/100 WBC Auto (Bl d)Ordered By: Katharina Toledo on 10-02-2024 Neutrophils/100 WBC (Bld) Automated neutrophil % . [facility] No Panel InformationOrdered By: Katharina Toledo on 10-02-2024 Bedside Estimated GFR (eGFR) > 60.0 [facility] Nucleated erythrocytes [Pres ence] in Blood by Automated countOrdered By: Katharina Toledo on 10-02-2024 Nucleated RBC Auto Ql (Bld) Nucleated erythrocytes [Presence] in Blood by Automated count 0-0.5 [facility] Platelet adequacy [Presence] in Blood by Light microscopyOrdered By: Katharina Toledo on 10-02-2024 Platelets LM Ql (Bld) Platelet adequacy [Presence] in Blood by Light microscopy Normal [facility] Platelet mean volume Auto (B ld) [Entitic vol]Ordered By: Katharina Toledo on 10-02-2024 Platelet mean volume (Bld) [Entitic vol] Platelet mean volume [Entitic volume] in Blood by Automated count 6.3-10.7 [facility] Platelet morphology finding [Identifier] in BloodOrdered By: Katharina Toledo on 10-02-2024 Platelet morphology finding Nom (Bld) Platelet morphology finding [Identifier] in Blood Normal [facility] Platelets Auto (Bld) [#/Vol] Ordered By: Katharina Toledo on 10-02-2024 Platelets (Bld) [#/Vol] Platelets [#/volume] in Blood by Automated count 150-450 [facility] Polychromasia [Presence] in Blood by Light microscopyOrdered By: Katharina Toledo on 10-02-2024 Polychromasia LM Ql (Bld) Polychromasia [Presence] in Blood by Light microscopy [facility] RBC Auto (Bld) [#/Vol]Ordere d By: Katharina Toledo on 10-02-2024 RBC (Bld) [#/Vol] Erythrocytes [#/volume] in Blood by Automated count 3.60-5.00 [facility] Scan and CBCon 10-02-2024 Anisocytosis Ql (Bld) Marked Normal [facility] Comment on above: Performed By: #### S CAN CBC, FE and TIBC, ARISTIDES #### [facility] [address] [place] [address] Basophils (Bld) [#/Vol] 0.1 10*3/uL Normal 0.0-0.2 [facility] Comment on above: Performed By: #### S CAN CBC, FE and TIBC, ARISTIDES #### [address] Basophils/100 WBC (Bld) 0.8 % Normal . [facility] Comment on above: Performed By: #### S CAN CBC, FE and TIBC, ARISTIDES #### [address] Eosinophils (Bld) [#/Vol] 0.2 10*3/uL Normal 0.0-0.45 [facility] Comment on above: Performed By: #### S CAN CBC, FE and TIBC, ARISTIDES #### [address] Eosinophils/100 WBC (Bld) 2.3 % Normal . [facility] Comment on above: Performed By: #### S CAN CBC, FE and TIBC, ARISTIDES #### [address] Erythrocyte distribution width (RBC) [Ratio] 29.3 % High 11.9-15.3 [facility] Comment on above: Performed By: #### S CAN CBC, FE and TIBC, ARISTIDES #### [address] Hematocrit (Bld) [Volume fraction] 33.0 % Low 34.0-46.4 [facility] Comment on above: Performed By: #### S CAN CBC, FE and TIBC, ARISTIDES #### [address] Hemoglobin (Bld) [Mass/Vol] 10.6 g/dL Low 11.8-15.4 [facility] Comment on above: Performed By: #### S CAN CBC, FE and TIBC, ARISTIDES #### [address] Hypochromasia Slight Normal [facility] Comment on above: Performed By: #### S CAN CBC, FE and TIBC, ARISTIDES #### [address] Lymphocytes (Bld) [#/Vol] 1.4 10*3/uL Normal 1.00-4.8 [facility] Comment on above: Performed By: #### S CAN CBC, FE and TIBC, ARISTIDES #### [address] Lymphocytes/100 WBC (Bld) 15.8 % Normal . [facility] Comment on above: Performed By: #### S CAN CBC, FE and TIBC, ARISTIDES #### [address] MCH (RBC) [Entitic mass] 26.6 pg Normal 24.7-34.3 [facility] Comment on above: Performed By: #### S CAN CBC, FE and TIBC, ARISTIDES #### [address] MCV (RBC) [Entitic vol] 83.1 fL Normal 80-100 [facility] Comment on above: Performed By: #### S CAN CBC, FE and TIBC, ARISTIDES #### [address] Mean Corpuscular HGB Conc 32.0 g/dL Normal 32.0-35.0 [facility] Comment on above: Performed By: #### S CAN CBC, FE and TIBC, ARISTIDES #### [address] Microcytosis Slight Normal [facility] Comment on above: Performed By: #### S CAN CBC, FE and TIBC, ARISTIDES #### [address] Monocytes (Bld) [#/Vol] 0.6 10*3/uL Normal 0.0-0.8 [facility] Comment on above: Performed By: #### S CAN CBC, FE and TIBC, ARISTIDES #### [address] Monocytes/100 WBC (Bld) 7.3 % Normal . [facility] Comment on above: Performed By: #### S CAN CBC, FE and TIBC, ARISTIDES #### [place] [address] [place] Neutrophils (Bld) [#/Vol] 6.4 10*3/uL Normal 1.8-7.7 [facility] Comment on above: Performed By: #### S CAN CBC, FE and TIBC, ARISTIDES #### [address] Neutrophils/100 WBC (Bld) 73.8 % Normal . [facility] Comment on above: Performed By: #### S CAN CBC, FE and TIBC, ARISTIDES #### [address] NRBC% 0.0 /100{WBC} Normal 0-0.5 [facility] Comment on above: Performed By: #### S CAN CBC, FE and TIBC, ARISTIDES #### [address] Platelet Estimate Normal Normal Normal [facility] Comment on above: Performed By: #### S CAN CBC, FE and TIBC, ARISTIDES #### [address] Platelet mean volume (Bld) [Entitic vol] 6.9 fL Normal 6.3-10.7 [facility] Comment on above: Performed By: #### S CAN CBC, FE and TIBC, ARISTIDES #### [address] Platelet Morphology Normal Normal Normal [facility] Comment on above: Result Comment: PERF ORMED BY: [place] [address] PATHOLOGIST IN STORE MARKETING ASSOCIATE KATHLEEN RAMOS M.D. Performed By: #### S CAN CBC, FE and TIBC, ARISTIDES #### [address] Platelets (Bld) [#/Vol] 337 10*3/uL Normal 150-450 [facility] Comment on above: Performed By: #### S CAN CBC, FE and TIBC, ARISTIDES #### [address] [place] [address] [place] Polychromasia Slight Normal [facility] Comment on above: Performed By: #### S CAN CBC, FE and TIBC, ARISTIDES #### [facility] [address] RBC (Bld) [#/Vol] 3.98 10*6/uL Normal 3.60-5.00 [facility] Comment on above: Performed By: #### S CAN CBC, FE and TIBC, ARISTIDES #### [facility] [address] WBC (Bld) [#/Vol] 8.7 10*3/uL Normal 3.8-11.6 [facility] Comment on above: Performed By: #### S CAN CBC, FE and TIBC, ARISTIDES #### [facility] [address] Serum or plasma iron binding capacity measurement (mass/volume)Ordered By: Katharina Toledo on 10-02-2024 Iron binding capacity [Mass/Vol] Iron binding capacity [Mass/volume] in Serum or Plasma 255-450 [facility] Serum or plasma iron saturat ion measurement (mass fraction)Ordered By: Katharina Toledo on 10-02-2024 Iron saturation [Mass fraction] Iron saturation [Mass Fraction] in Serum or Plasma Low 20-50 [facility] Transferrin [Mass/volume] in Serum or PlasmaOrdered By: Katharina Toledo on 10-02-2024 Transferrin [Mass/Vol] Transferrin [Mass/volume] in Serum or Plasma 203-362 [facility] WBC Auto (Bld) [#/Vol]Ordere d By: Katharina Toledo on 10-02-2024 WBC (Bld) [#/Vol] Leukocytes [#/volume ] in Blood by Automated count 3.8-11.6 [facility] Office Visiton 09-24-2024 Follow-up visit [id number] Breann Starks 1945 F Date Provider Department Center 09/24/2024 [place] Family History Adopted: Yes Family history unknown: Yes Family Status - Relation Status Age at Mother Father Level of Service:61293 [place] OFFICE/OUTPATIENT ESTABLISHED MOD MDM 30 MIN Reason for Visit and Comments: Atrial Fibrillation [80] - Denies palpitations, lightheadedness/synco pe, and bleeding on Eliquis. Congestive Heart Failure [127] severe pulmonary hypertension [Other] - Denies chest pain and SOB. Edema [[id number]] - NOT taking lasix currently due to no LE edema. Normal [facility] Urinalysis macro (dipstick) panel (U)on 09-19-2024 Bilirubin, UA Negative Negative - 4(70) +++ mg/dL [facility] Blood, UA Positive Negative - 50 Shadi/mcL [facility] Clarity, UA Cloudy [facility] Color, UA Dark Sara [facility] Glucose, UA Negative Negative - 1999(110) ++++ mg/dL [facility] Interpretation and review of laboratory results Abnormal [facility] Ketones, UA Positive Negative - 160(16) ++++ mg/dL [facility] Leukocytes, UA Moderate Negative - 500+++ Rosette/mcL [facility] Nitrite, UA Negative Negative - Positive [facility] pH, UA 5 5 - 9 [facility] Protein, UA 3+ Negative - 2000(20) ++++ mg/dL [facility] Spec Grav, UA 1.3 1 - 1.03 [facility] Urobilinogen, UA 0.2 0.2 - 12 mg/dL [facility] C reactive protein [Mass/vol ume] in Serum or PlasmaOrdered By: Pedro Pablo Cruz on 08-24-2024 CRP [Mass/Vol] C reactive protein [Mass/volume] in Serum or Plasma High 0.0-0.5 [facility] C-Reactive Proteinon 024 C-Reactive Protein 1.1 mg/dL High 0.0-0.5 [facility] Comment on above: Result Comment: PERF ORMED BY: [facility] [address] [place] [address] PATHOLOGIST IN STORE MARKETING ASSOCIATE KATHLEEN RAMOS M.D. Performed By: #### C RP ####[facility] [address] [place] [address] [facility] CBC W Auto Differential pane l (Bld)on 08-24-2024 Basophils (Bld) [#/Vol] 0.1 10*3/uL 0.0 - 0.2 10*3/uL [facility] Basophils/100 WBC Manual cnt (Syn fld) 0.9 % . [facility] Eosinophils (Bld) [#/Vol] 0.2 10*3/uL 0.0 - 0.45 10*3/uL [facility] Eosinophils/100 WBC Manual cnt (Syn fld) 2.6 % . [facility] Erythrocyte distribution width (RBC) [Ratio] 19.3 % High 11.9 - 15.3 % [facility] Hematocrit (Bld) [Volume fraction] 28.2 % Low 34.0 - 46.4 % [facility] Hemoglobin (Bld) [Mass/Vol] 8.6 g/dL Low 11.8 - 15.4 g/dL [facility] Interpretation and review of laboratory results Abnormal [facility] Lymphocytes (Bld) [#/Vol] 2.1 10*3/uL 1.00 - 4.8 10*3/uL [facility] Lymphocytes/100 WBC Manual cnt (Syn fld) 23.5 % . [facility] MCH (RBC) [Entitic mass] 21.8 pg Low 24.7 - 34.3 pg [facility] MCHC (RBC) [Mass/Vol] 30.4 g/dL Low 32.0 - 35.0 g/dL [facility] MCV (RBC) [Entitic vol] 71.9 fL Low 80 - 100 fL [facility] Monocytes (Bld) [#/Vol] 0.6 10*3/uL 0.0 - 0.8 10*3/uL [facility] Monocytes+Macrophages/ 100 WBC Manual cnt (Syn fld) 6.8 % . [facility] Neutrophils (Bld) [#/Vol] 5.9 10*3/uL 1.8 - 7.7 10*3/uL [facility] Neutrophils/100 WBC Manual cnt (Syn fld) 66.2 % . [facility] NRBC 0 /100{WBC} 0 - 0.5 /100{WBC} [facility] Platelet mean volume (Bld) [Entitic vol] 6.9 fL 6.3 - 10.7 fL [facility] Platelets (Bld) [#/Vol] 345 10*3/uL 150 - 450 10*3/uL [facility] RBC LM.HPF (Urine sed) [#/Area] 3.93 10*6/uL 3.60 - 5.00 10*6/uL [facility] WBC (Bld) [#/Vol] 8.9 10*3/uL 3.8 - 11.6 10*3/uL [facility] WBC LM.HPF (Urine sed) [#/Area] 8.9 10*3/uL 3.8 - 11.6 10*3/uL [facility] Complete Blood Count Auto Di ffon 08-24-2024 Basophils (Bld) [#/Vol] 0.1 10*3/uL Normal 0.0-0.2 [facility] Comment on above: Result Comment: PERF ORMED BY: [place] [address] PATHOLOGIST IN STORE MARKETING ASSOCIATE KTAHLEEN RAMOS M.D. Performed By: #### F ER, [id number], CBC, FE and TIBC ####[address] Basophils/100 WBC (Bld) 0.9 % Normal . [facility] Comment on above: Performed By: #### F ER, [id number], CBC, FE and TIBC ####[address] Eosinophils (Bld) [#/Vol] 0.2 10*3/uL Normal 0.0-0.45 [facility] Comment on above: Performed By: #### F ER, [id number], CBC, FE and TIBC ####[address] Eosinophils/100 WBC (Bld) 2.6 % Normal . [facility] Comment on above: Performed By: #### F ER, [id number], CBC, FE and TIBC ####[address] Erythrocyte distribution width (RBC) [Ratio] 19.3 % High 11.9-15.3 [facility] Comment on above: Performed By: #### F ER, [id number], CBC, FE and TIBC ####[address] Hematocrit (Bld) [Volume fraction] 28.2 % Low 34.0-46.4 [facility] Comment on above: Performed By: #### F ER, [id number], CBC, FE and TIBC ####[address] Hemoglobin (Bld) [Mass/Vol] 8.6 g/dL Low 11.8-15.4 [facility] Comment on above: Performed By: #### F ER, [id number], CBC, FE and TIBC ####[address] Lymphocytes (Bld) [#/Vol] 2.1 10*3/uL Normal 1.00-4.8 [facility] Comment on above: Performed By: #### F ER, [id number], CBC, FE and TIBC ####[address] Lymphocytes/100 WBC (Bld) 23.5 % Normal . [facility] Comment on above: Performed By: #### F ER, [id number], CBC, FE and TIBC ####[address] MCH (RBC) [Entitic mass] 21.8 pg Low 24.7-34.3 [facility] Comment on above: Performed By: #### F ER, [id number], CBC, FE and TIBC ####[address] MCV (RBC) [Entitic vol] 71.9 fL Low 80-100 [facility] Comment on above: Performed By: #### F ER, [id number], CBC, FE and TIBC ####[address] Mean Corpuscular HGB Conc 30.4 g/dL Low 32.0-35.0 [facility] Comment on above: Performed By: #### F ER, [id number], CBC, FE and TIBC ####[address] Monocytes (Bld) [#/Vol] 0.6 10*3/uL Normal 0.0-0.8 [facility] Comment on above: Performed By: #### F ER, [id number], CBC, FE and TIBC ####[address] Monocytes/100 WBC (Bld) 6.8 % Normal . [facility] Comment on above: Performed By: #### F ER, [id number], CBC, FE and TIBC ####[address] Neutrophils (Bld) [#/Vol] 5.9 10*3/uL Normal 1.8-7.7 [facility] Comment on above: Performed By: #### F ER, [id number], CBC, FE and TIBC ####[address] Neutrophils/100 WBC (Bld) 66.2 % Normal . [facility] Comment on above: Performed By: #### F ER, [id number], CBC, FE and TIBC ####[address] NRBC% 0.0 /100{WBC} Normal 0-0.5 [facility] Comment on above: Performed By: #### F ER, [id number], CBC, FE and TIBC ####[address] Platelet mean volume (Bld) [Entitic vol] 6.9 fL Normal 6.3-10.7 [facility] Comment on above: Performed By: #### F ER, [id number], CBC, FE and TIBC ####[address] [address] [place] Platelets (Bld) [#/Vol] 345 10*3/uL Normal 150-450 [facility] Comment on above: Performed By: #### F ER, [id number], CBC, FE and TIBC ####[place] [id number] [address] RBC (Bld) [#/Vol] 3.93 10*6/uL Normal 3.60-5.00 [facility] Comment on above: Performed By: #### F ER, [id number], CBC, FE and TIBC ####[address] WBC (Bld) [#/Vol] 8.9 10*3/uL Normal 3.8-11.6 [facility] Comment on above: Performed By: #### F ER, [id number], CBC, FE and TIBC ####[address] Erythrocyte Sedimentation Ra aren 08-24-2024 ESR (Bld) [Velocity] 103 mm/h High 0-29 [facility] Comment on above: Result Comment: PERF ORMED BY: [facility] [address] [place] [address] PATHOLOGIST IN STORE MARKETING ASSOCIATE KATHLEEN RAMOS M.D. Performed By: #### E SR #### [address] Erythrocyte sedimentation ra te by Photometric methodOrdered By: Pedro Pablo Cruz on 08-24-2024 ESR Photometric method (Bld) [Velocity] Erythrocyte sedimentation rate by Photometric method High 0-29 [facility] Ferritinon 08-24-2024 Ferritin [Mass/Vol] 8.6 ng/mL Low 11.0-306.8 [facility] Comment on above: Performed By: #### F ER, [id number], CBC, FE and TIBC ####[address] Folate [Mass/volume] in Seru m or PlasmaOrdered By: Katharina Toledo on 08-24-2024 Folate [Mass/Vol] Folate [Mass/volume] in Serum or Plasma >5.9 [facility] Comment on above: Folate reference ran ge: >5.9 ng/mlThe WHO technical consultation on folate and vitamin [id number] has determined that folate concentrations lessthan 4 ng/ml are considered deficient. Iron and TIBC Profileon 08-12 % Iron Saturation 3.2 % Low 20-50 [facility] Comment on above: Performed By: #### F ER, [id number], CBC, FE and TIBC ####[place] [id number] [address] Iron [Mass/Vol] 14 ug/dL Low 50-212 [facility] Comment on above: Performed By: #### F ER, [id number], CBC, FE and TIBC ####[address] Total Iron Binding Capacity 437 ug/dL Normal 255-450 [facility] Comment on above: Performed By: #### F ER, [id number], CBC, FE and TIBC ####[place] [id number] [facility] Transferrin [Mass/Vol] 312 mg/dL Normal 203-362 [facility] Comment on above: Performed By: #### F ER, [id number], CBC, FE and TIBC ####[place] [id number] [facility] Vit. B12/Folate Profileon Cobalamin (Vitamin B12) [Mass/Vol] 417 pg/mL Normal 180-914 [facility] Comment on above: Performed By: #### F ER, [id number], CBC, FE and TIBC ####[place] [id number] [facility] Folate 28.0 ng/mL Normal >5.9 [facility] Comment on above: Result Comment: Nayely te reference range: >5.9 ng/ml The WHO technical consultation on folate and vitamin b12 deficiencies has determined that folate concentrations less than 4 ng/ml are considered deficient. PERFORMED BY: [facility] [address] [place] [address] PATHOLOGIST IN STORE MARKETING ASSOCIATE KATHLEEN RAMOS M.D. Performed By: #### F ER, [id number], CBC, FE and TIBC ####[facility] [id number] [place] [address] [facility] Vitamin B12 ser/plasOrdered By: Katharina Toledo on 08-24-2024 Cobalamin (Vitamin B12) [Mass/Vol] Vitamin B12 ser/plas 180-914 [facility] TRANSFERRINon 07-25-2024 Transferrin [Mass/Vol] 284 mg/dL 192 - 364 mg/dL [facility] Comment on above: Performed at: [address] [id number] Geospatial Analyst: Baudilio Givens PhD, Phone: [phone] [facility] ALL CBC WITH AUTO DIFFon BASOPHILS ABSOLUTE AUTO 0.1 [facility] Basophils/100 WBC (Bld) 0.9 % 0.2 - 2.0 % [facility] Eosinophils/100 WBC (Bld) 0.9 % 0.9 - 7.0 % [facility] Erythrocyte distribution width (RBC) [Ratio] 17.7 % High 11.0 - 15.0 % [facility] Hematocrit (Bld) [Volume fraction] 29.9 % Low 36.0 - 48.0 % [facility] Hemoglobin (Bld) [Mass/Vol] 8.7 g/dL Low 12.0 - 16.0 g/dL [facility] IMMATURE GRANULOCYTES ABS AUTO 0.03 [facility] Immature granulocytes/100 WBC (Bld) 0.3 % 0.0 - 0.5 % [facility] Interpretation and review of laboratory results Abnormal [facility] LYMPHOCYTES ABSOLUTE AUTO 1.4 [facility] Lymphocytes/100 WBC (Bld) 14.1 % Low 20.5 - 60.0 % [facility] MCH (RBC) [Entitic mass] 22.3 pg Low 26.7 - 34.0 [facility] MCHC (RBC) [Mass/Vol] 29.1 g/dL Low 29.9 - 35.2 g/dL [facility] MCV (RBC) [Entitic vol] 76.7 fL Low 81.0 - 99.0 fL [facility] MONOCYTES ABSOLUTE AUTO 0.7 [facility] Monocytes/100 WBC (Bld) 6.6 % 1.7 - 12.0 % [facility] NEUTROPHILS ABSOLUTE AUTO 7.7 High [facility] Neutrophils/100 WBC (Bld) 77.2 % High 43.0 - 75.0 % [facility] Platelet mean volume (Bld) [Entitic vol] 9.3 fL Low 9.5 - 13.5 fL [facility] TB EO # 0.1 [facility] TB PLT 328 [facility] RBC 3.9 Low [facility] WBC 10 [facility] IRON [facility] TIBCon 2023 Interpretation and review of laboratory results Abnormal [facility] IRON 17 ug/dL Low 50.0 - 170.0 ug/dL [facility] PERCENT IRON SATURATION 4.5 % [facility] TOTAL IRON BINDING CAPACITY 381 ug/dL 250.0 - 450.0 ug/dL [facility]-18-2024 Follow-up visit [id number] Breann Starks 1945 F Date Provider Department Center 07/18/2024 [id number] Family History Adopted: Yes Family history unknown: Yes Family Status - Relation Status Age at Mother Father Level of Service:62023 [place] OFFICE/OUTPATIENT ESTABLISHED MOD MDM 30 MIN Reason for Visit and Comments: Atrial Fibrillation [80] PACEMAKER [Other] Coronary Artery Disease [187] Hypertension [388070] Sinus node dysfunction [Other] - HAS [employer] PACER Obesity [[id number]] Edema [[id number]] Normal [facility] CNOVon 05-22-2024 CNOV Office Visit (LOORRM ) BREANN STARKS ([id number]) 1945 F Date Time Provider Department 05/22/24 [...] She was recommended for second opinion at [facility]. 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 Normal [facility] XR SHLDR 4V AP/HECTOR/LAT/OUTLE T LTon [...] other significant abnormality. IMPRESSION: EXPECTED POSTOPERATIVE APPEARANCE Fish Liver Sorter: PSCB Transcribe Date/Time: May 22 2024 2:42P Dictated by : VILMA ABREU MD This examination was interpreted and the report reviewed and electronically signed by: VILMA ABREU MD on May 22 2024 2:42PM EST [id number] Normal [facility] XR Shoulder - left 4 Viewson 05-22-2024 IMPRESSION: EXPECTED POSTOPERATIVE APPEARANCE Fish Liver Sorter: PSCB Transcribe Date/Time: May 22 2024 2:42P [...] other significant abnormality. DIVISION OF RADIOLOGY Provider, Vianca Zuleta - 05/22/2024 * * *Final Report* * [...] significant abnormality. IMPRESSION IMPRESSION: EXPECTED POSTOPERATIVE APPEARANCE Fish Liver Sorter: STEVE Transcribe Date/Time: May 22 2024 2:42P Dictated by : VILMA ABREU MD This examination was interpreted and the report reviewed and electronically signed by: VILMA ABREU MD on May 22 2024 2:42PM [facility] Radiology Study observation (narrative) [facility] XR Shoulder - left 4 ViewsOr dered By: [facility] Provider on 05-22-2024 [facility] ALL CBC WITH AUTO DIFFon BASOPHILS ABSOLUTE AUTO 0.0 [facility] Basophils/100 WBC (Bld) 0.6 % 0.2 - 2.0 % [facility] Eosinophils/100 WBC (Bld) 1.0 % 0.9 - 7.0 % [facility] Erythrocyte distribution width (RBC) [Ratio] 19.6 % High 11.0 - 15.0 % [facility] Hematocrit (Bld) [Volume fraction] 32.9 % Low 36.0 - 48.0 % [facility] Hemoglobin (Bld) [Mass/Vol] 9.7 g/dL Low 12.0 - 16.0 g/dL [facility] IMMATURE GRANULOCYTES ABS AUTO 0.02 [facility] Immature granulocytes/100 WBC (Bld) 0.3 % 0.0 - 0.5 % [facility] Interpretation and review of laboratory results Abnormal [facility] LYMPHOCYTES ABSOLUTE AUTO 1.4 [facility] Lymphocytes/100 WBC (Bld) 20.4 % Low 20.5 - 60.0 % [facility] MCH (RBC) [Entitic mass] 22.8 pg Low 26.7 - 34.0 pg [facility] MCHC (RBC) [Mass/Vol] 29.5 g/dL Low 29.9 - 35.2 g/dL [facility] MCV (RBC) [Entitic vol] 77.4 fL Low 81.0 - 99.0 fL [facility] MONOCYTES ABSOLUTE AUTO 0.7 [facility] Monocytes/100 WBC (Bld) 9.8 % 1.7 - 12.0 % [facility] NEUTROPHILS ABSOLUTE AUTO 4.7 [facility] Neutrophils/100 WBC (Bld) 67.9 % 43.0 - 75.0 % [facility] Platelet mean volume (Bld) [Entitic vol] 8.5 fL Low 9.5 - 13.5 fL [facility] TBH EO # 0.1 [facility]H PLT 278 [facility] TB RBC 4.25 [facility] TB WBC 7.0 [facility] CLINISYNC [facility] NM bone 3 phaseon 05-02-2024 NM bone 3 phase [facility] [place] [address] Nuclear Medicine Report Signed Patient: Breann Starks MR#: [id number] 171 : 1945 Acct:[id number] Age/Sex: 78 / F ADM Date: 05/02/24 Loc: [facility] Room: Type: [facility] Attending Dr: Pedro Pablo Cruz [...] Etienne Rhodes M.D.05/02/2024 2:44 PM Dictation Location: [place] [address] Transcribed By: [facility] 05/02/24 144 Dictated By: Etienne Rhodes DO 05/02/24 1440 Signed By: 05/02/24 144 Normal [facility] Lab Reportson 03-07-2024 Lab Reports [id number] .00TIFF Normal [facility] 36on 03-06-2024 36 Echo from 03/05/2024 [...] to her pharmacy. BMP order faxed to [facility]. Breann verbalized understanding. Normal [facility] Consent for Procedure/Surger n 03-05-2024 Consent for Procedure/Surgery [id number] .00TIFF Destiny Medrano [facility] Ambulatory Visit Summaryon 0 03-02-2024 Ambulatory [...] you for choosing us for your care. [facility] ED Note-Physicianon 03-02-20 ED Note-Physician [id number]. 00TIFF [facility] Insurance Correspondenceon 0 03-02-2024 Insurance Correspondence [id number] 1.00TIFF [facility] Lab Reportson 03-02-2024 Lab Reports [id number] .00TIFF [facility] 36on 01-25-2024 36 Patient called stating ever since her device was adjusted last month she's had this weird feeling in her throat. I called Sony Asif from [employer] and he told me this feeling she's having should not be from her device. Patient informed. I suggested she see PCP for this. She verbalized understanding. Normal [facility] Office Visiton 01-17-2024 Follow-up visit [id number] Breann Starks 1945 F Date Provider Department Center 01/17/2024 [facility] Family History Adopted: Yes Family history unknown: Yes Family Status - Relation Status Age at Mother Father Level of Service:57108 [place] OFFICE/OUTPATIENT ESTABLISHED MOD MDM 30 MIN Reason for Visit and Comments: Atrial Fibrillation [80] Normal [facility] DXA Skeletal system Views fo r bone densityon 12-12-2023 Interpretation and review of laboratory results Normal [facility] normal [facility] Healthcare [facility] Radiology Study observation (narrative) [facility] XR lumbar spine 6V w bending on 11-16-2023 XR lumbar spine 6V w bending [facility] [place] [address] XRay Report Signed Patient: Breann Starks MR#: [id number] 171 : 1945 Acct:[id number] Age/Sex: 77 / F ADM Date: 11/16/23 Loc: XD Room: Type: [facility] Attending Dr: Kayley DESIR Copies [...] Benton Jr., D.O.11/16/2023 4:37 PM Dictation Location: [place] [address] Transcribed By: [facility] 11/16/23 1637 Dictated By: Francisco J Benton Jr, DO 11/16/23 163 Signed By: 11/16/23 1637 Normal [facility] XR LSPINE W_OBLS [...] by: PAULA BROWN Date: 2023-01-31 11:[address] [facility] LIPID PROFILEon 12-16-2022 CHOL-HDL RATIO NORM SEE BELOW Normal [facility] Comment on above: Result Comment: 3.3 - 4.4 LOW RISK 4.4 - 7.1 AVERAGE RISK 7.1 - 11.0 MODERATE RISK >11.0 HIGH RISK Performed By: #### L IPID ####[facility] [address] [place], [place] [address]OfMeena Smith Cholesterol [Mass/Vol] 105 mg/dL Normal <=200 [facility] Comment on above: Performed By: #### L IPID ####[facility] [address] [place], [place] [address]TdMeena Smith Cholesterol in HDL [Mass/Vol] 48 mg/dL Normal 40-[address] [facility] Comment on above: Performed By: #### L IPID ####[facility] Qgjn[address] [place] [address]Dr. Erasmo Smith Cholesterol in LDL [Mass/Vol] 48.2 mg/dL Normal [facility] Comment on above: Performed By: #### L IPID ####[facility] Pzzpoptlcm2224 [place] [address]Dr. Erasmo Smith Cholesterol.total/Chol esterol in HDL [Mass ratio] 2.2 {ratio} Normal [facility] Comment on above: Performed By: #### L IPID ####[facility] [address]sw[address] [place] [address]Dr. Erasmo Smith HDL NORMAL > or = 60 mg/dl - LO W CARDIOVASCULAR RISK <40 mg/dl - HIGH CARDIOVASCULAR RISK Normal [facility] Comment on above: Performed By: #### L IPID ####[facility] [address] [place] [address]Dr. Erasmo Smith LDL CALC NORMAL SEE BELOW Normal [facility] Comment on above: Result Comment: <100 mg/dl OPTIMAL 100 - 129 mg/dl NEAR OR ABOVE OPTIMAL 130 - 159 mg/dl BORDERLINE HIGH 160 - 189 mg/dl HIGH >190 mg/dl VERY HIGH Performed By: #### L IPID ####[facility] [address] [place] [address]Dr. Erasmo Smith Triglyceride [Mass/Vol] 44 mg/dL Normal <=150 [facility] Comment on above: Performed By: #### L IPID ####[facility] [address] [place], [place] [address]Mq. Erasmo Smith VLDL CALC 8.8 mg/dL Normal [facility] Comment on above: Performed By: #### L IPID ####[facility] Izvqyqaizq17[address] [place] [address]Dr. Erasmo Smith CULTURE BLOODon 12-04-2022 Microscopic examination [...] F Trimethoprim/Sulfamet hoxazole <=20 S F Normal [facility] Comment on above: Performed By: #### B LDCX1 ####[facility] Sh[address] [place], [place] [address]Dr. Erasmo Smith BNPon 12-03-2022 Natriuretic peptide B (Bld) [Mass/Vol] 413.0 pg/mL Normal <=1,800.[address] [facility] Comment on above: Performed By: #### B DENSITY CONTROL PUNCHER #### [facility] Laboratory [address] [place] [address] Dr. Erasmo Smith CBC AUTO DIFFon 12-03-2022 BASO # 0.0 103/ul Normal 0.0-0.[address] [facility] Comment on above: Performed By: #### C BC ####[facility] [address] [place], [place] [address]DrMeena Smith Basophils/100 WBC (Bld) 0.2 % Normal 0.2-2.0 [facility] Comment on above: Performed By: #### C BC ####[facility] [address] [place], [place] [address]DrMeena Smith EO # 0.4 103/ul Normal 0.0-0.7 [facility] Comment on above: Performed By: #### C BC ####[facility] [address] [place], [place] [address]DrMeena Smith Eosinophils/100 WBC (Bld) 2.1 % Normal 0.9-7.0 [facility] Comment on above: Performed By: #### C BC ####[facility] [address] [place], [place] [address]Dr. Erasmo Smith Erythrocyte distribution width (RBC) [Ratio] 17.2 % Critically high 11.0-15.0 [facility] Comment on above: Performed By: #### C BC ####[facility] [address] [place] [address]Dr. Erasmo Smith Hematocrit (Bld) [Volume fraction] 29.2 % Critically low 36.0-48.0 [facility] Comment on above: Performed By: #### C BC ####[facility] [address] [place] [address]Dr. Heavenean Smith Hemoglobin (Bld) [Mass/Vol] 9.5 g/dL Critically low 12.0-16.0 [facility] Comment on above: Performed By: #### C BC ####[facility] [address] [place] [address]Dr. Erasmo Smith IG # 0.13 10e3/ul Critically high 0.00-0.03 [facility] Comment on above: Performed By: #### C BC ####[facility] [address]yt[address] [place] [address]Dr. Heavenean Smith IG % 0.8 % Critically high 0.0-0.5 [facility] Comment on above: Performed By: #### C BC ####[facility] [address] [place] [address]Dr. Erasmo Smith LYMPH # 1.8 103/ul Normal 1.2-3.8 [facility] Comment on above: Performed By: #### C BC ####[facility] [address] [place] [address]Dr. Erasmo Smith Lymphocytes/100 WBC (Bld) 10.3 % Critically low 20.5-60.0 [facility] Comment on above: Performed By: #### C BC ####[facility] [address] [place] [address]Dr. Heavenean Smith MANUAL DIFF REQ NO Normal [facility] Comment on above: Performed By: #### C BC ####[facility] [address] [place] [address]Dr. Erasmo Smith MCH (RBC) [Entitic mass] 25.7 pg Critically low 26.7-34.0 [facility] Comment on above: Performed By: #### C BC ####[facility] [address]gb[address]xmgs[address] [place] [address]Dr. Erasmo Smith MCHC (RBC) [Mass/Vol] 32.5 g/dL Normal 29.9-35.2 [facility] Comment on above: Performed By: #### C BC ####[facility] [address] [place] [address]Dr. Erasmo Smith MCV (RBC) [Entitic vol] 79.1 fL Critically low 81.0-99.0 [facility] Comment on above: Performed By: #### C BC ####[facility] [address] [place] [address]Dr. Erasmo Smith MONO # 1.5 103/ul Critically high 0.3-0.8 [facility] Comment on above: Performed By: #### C BC ####[facility] [address] [place] [address]Dr. Erasmo Smith Monocytes/100 WBC (Bld) 8.7 % Normal 1.7-12.0 [facility] Comment on above: Performed By: #### C BC ####[facility] [address] [place] [address]Dr. Erasmo Smith NEUT # 13.4 103/ul Critically high 1.4-6.5 [facility] Comment on above: Performed By: #### C BC ####[facility] Xq[address] [place] [address]Dr. Erasmo Smith Neutrophils/100 WBC (Bld) 77.9 % Critically high 43.0-75.0 [facility] Comment on above: Performed By: #### C BC ####[facility] [address] [place] [address]Dr. Erasmo Smith Platelet mean volume (Bld) [Entitic vol] 9.3 fL Critically low 9.5-13.5 [facility] Comment on above: Performed By: #### C BC ####[facility] [address] [place], [place] [address]Ea. Erasmo Smith PLT 205 103/ul Normal 150-450 [facility] Comment on above: Performed By: #### C BC ####[facility] [address] [place], [place] [address]Es. Erasmo Smith RBC 3.69 106/ul Critically low 4.20-5.40 [facility] Comment on above: Performed By: #### C BC ####[facility] [address] [place], [place] [address]Pe. Erasmo Smith WBC 17.2 103/ul Critically high 4.0-11.0 [facility] Comment on above: Performed By: #### C BC ####[facility] [address] [place] [address]Dr. Erasmo Smith MAGNESIUMon 12-03-2022 Magnesium [Mass/Vol] 1.9 mg/dL Normal 1.8-2.[address] [facility] Comment on above: Performed By: #### B DENSITY CONTROL PUNCHER #### [facility] Laboratory [address] [place] [address] [address] Erasmo Smith PROF 14(COMP METB)on 023 Albumin [Mass/Vol] 2.6 g/dL Critically low 3.4-5.0 [facility] Comment on above: Performed By: #### B DENSITY CONTROL PUNCHER #### [facility] [address] [place] [address] [address] Erasmo Smith Albumin/Globulin [Mass ratio] 0.6 {ratio} Normal [facility] Comment on above: Performed By: #### B DENSITY CONTROL PUNCHER #### [facility] [address] [place] [address] [address] Erasmo Smith ALP [Catalytic activity/Vol] 123 U/L Critically high 46-[address] [facility] Comment on above: Performed By: #### B DENSITY CONTROL PUNCHER #### [facility] [address] [place] [address] [address] Erasmo Smith ALT [Catalytic activity/Vol] 28 U/L Normal 14-59 [facility] Comment on above: Performed By: #### B DENSITY CONTROL PUNCHER #### [facility] [address] [place] [address] [address] Erasmo Smith Anion gap [Moles/Vol] 9.4 mmol/L Normal [facility] Comment on above: Performed By: #### B DENSITY CONTROL PUNCHER #### [facility] [address] [place] [address] [address] Erasmo Smith AST [Catalytic activity/Vol] 21 U/L Normal 15-[address] [facility] Comment on above: Performed By: #### B DENSITY CONTROL PUNCHER #### [facility] [address] [place] [address] [address] Erasmo Smith Bilirubin [Mass/Vol] 0.3 mg/dL Normal 0.2-1.[address] [facility] Comment on above: Performed By: #### B DENSITY CONTROL PUNCHER #### [facility] [address] [place] [address] Dr. Erasmo Smith Calcium [Mass/Vol] 8.3 mg/dL Critically low 8.5-10.1 [facility] Comment on above: Performed By: #### B DENSITY CONTROL PUNCHER #### [facility] [address] [place] [address] Dr. Erasmo Smith Chloride [Moles/Vol] 105 mmol/L Normal 98-[address] [facility] Comment on above: Performed By: #### B DENSITY CONTROL PUNCHER #### [facility] [address] [place] [address] Dr. Erasmo Smith CO2 [Moles/Vol] 27.1 mmol/L Normal 21.0-32.0 [facility] Comment on above: Performed By: #### B DENSITY CONTROL PUNCHER #### [facility] [address] [place] [address] Dr. Erasmo Smith Creatinine [Mass/Vol] 0.55 mg/dL Normal 0.55-1.[address] [facility] Comment on above: Performed By: #### B DENSITY CONTROL PUNCHER #### [facility] [address] [place] [address] Dr. Erasmo Smith EGFR-AF SUDANESE >60 Normal >=60 [facility] Comment on above: Performed By: #### B DENSITY CONTROL PUNCHER #### [facility] [address] [place] [address] Dr. Erasmo Smith EGFR-NON AF SUDANESE >60 Normal >=[address] [facility] Comment on above: Performed By: #### B DENSITY CONTROL PUNCHER #### [facility] [address] [place] [address] [address] Erasmo Smith Globulin (S) [Mass/Vol] 4.0 g/dL Normal [facility] Comment on above: Performed By: #### B DENSITY CONTROL PUNCHER #### [facility] [address] [place] [address] [address] Erasmo Smith Glucose [Mass/Vol] 132 mg/dL Critically high 74-106 [facility] Comment on above: Performed By: #### B DENSITY CONTROL PUNCHER #### [facility] [address] [place] [address] [address] Erasmo Smith Potassium [Moles/Vol] 3.5 mmol/L Normal 3.5-5.[address] [facility] Comment on above: Performed By: #### B DENSITY CONTROL PUNCHER #### [facility] [address] [place] [address] [address] Erasmo Smith Protein [Mass/Vol] 6.6 g/dL Normal 6.4-8.2 [facility] Comment on above: Performed By: #### B DENSITY CONTROL PUNCHER #### [facility] [address] [place] [address] [address] Erasmo Smith Sodium [Moles/Vol] 138 mmol/L Normal 136-145 [facility] Comment on above: Performed By: #### B DENSITY CONTROL PUNCHER #### [facility] [address] [place] [address] [address] Erasmo Smith Urea nitrogen [Mass/Vol] 24.0 mg/dL Critically high 7.0-18.[address] [facility] Comment on above: Performed By: #### B DENSITY CONTROL PUNCHER #### [facility] [address] [place] [address] Dr. Erasmo Smith Urea nitrogen/Creatinine [Mass ratio] 43.6 mg/mg Normal [facility] Comment on above: Performed By: #### B DENSITY CONTROL PUNCHER #### [facility] [address] [place] [address] [address] Erasmo Smith PROTIMEon 12-03-2022 INR Coag (PPP) [Relative time] 4.41 {INR} Critically high [facility] Comment on above: Performed By: #### C MREP #### [facility] [address] [place] [address] [address] Erasmo Smith INR GUIDELINES SEE BELOW Normal [facility] Comment on above: Result Comment: ABNER RED INR: 2.0 - 3.0 CONDITIONS NOT LISTED BELOW 2.5 - 3.5 FOR PROSTHETIC HEART VALVE REPLACEMENT 2.5 - 3.5 RECURRENT THROMBOSIS Performed By: #### C MREP #### [facility] [address] [place] [address] [address] Erasmo Smith PT Coag (PPP) [Time] 43.0 s Critically high 9.0-11.6 [facility] Comment on above: Performed By: #### C MREP #### [facility] [address] [place] [address] [address] Erasmo Smith BLOOD CULTURE ID PANELon A. baumannii Not detected Normal NOT DETECTED [facility] Comment on above: Performed By: #### B CID2 ####[facility] [address] [place] [address]DrMeena Smith Bacteriodes fragilis Not detected Normal NOT DETECTED [facility] Comment on above: Performed By: #### B CID2 ####[facility] [address]th[address] [place] [address]Dr. Erasmo Smith BCID CONTROLS PASSED Normal [facility] Comment on above: Performed By: #### B CID2 ####[facility] [address] [place] [address]Dr. Erasmo Smith BCIDBTHD BLOOD CULTURE BOTTLE INFORMATION Normal [facility] Comment on above: Performed By: #### B CID2 ####[facility] [address]fo[address] [place] [address]Dr. Erasmo Smith BCIDHD1 ANTIMICROBIAL RESISTANCE GENES Normal [facility] Comment on above: Performed By: #### B CID2 ####[facility] [address]relgeleb[address] [place] [address]Dr. Erasmo Smith BCIDHD2 SEE BELOW Normal [facility] Comment on above: Result Comment: Note : Antimicrobial resitance can occur via multiple mechanisms. A Not Detected result for the [employer] antomicrobial resistance gene assays does not indicate antimicrobial susceptibility. Subculturing is required for species identification and susceptibility testing of isolates. Performed By: #### B CID2 ####[facility] [address]bal[address]vt[address] [place] [address]Dr. Erasmo Smith BCIDHD3 Positive Normal [facility] Comment on above: Performed By: #### B CID2 ####[facility] [address] [place], [place] [address]Dr. Erasmo Smiht BCIDHD4 Negative Normal [facility] Comment on above: Performed By: #### B CID2 ####[facility] [address] [place], [place] [address]Dr. Heavenean Smith BCIDHD5 YEAST Normal [facility] Comment on above: Performed By: #### B CID2 ####[facility] [address] [place], [place] [address]Dr. Heavenean Smith Bottle Set: Set 1 Normal [facility] Comment on above: Performed By: #### B CID2 ####[facility] [address] [place], [place] [address]Dr. Erasmo Smith Bottle: Anaerobic Normal [facility] Comment on above: Performed By: #### B CID2 ####[facility] Jr[address]ct[address]ii[address] [place], [place] [address]Dr. Heavenean Smith C. neoformans/gattii Not detected Normal NOT DETECTED [facility] Comment on above: Performed By: #### B CID2 ####[facility] [address] [place], [place] [address]Dr. Erasmo Smith Naye albicans Not detected Normal NOT DETECTED [facility] Comment on above: Performed By: #### B CID2 ####[facility] Scws[address]un[address] [place], [place] [address]Dr. Erasmo Smith Naye auris Not detected Normal NOT DETECTED [facility] Comment on above: Performed By: #### B CID2 ####[facility] [address] [place], [place] [address]Dr. Erasmo Smith Naye glabrata Not detected Normal NOT DETECTED [facility] Comment on above: Performed By: #### B CID2 ####[facility] [address]co[address] [place], [place] [address]Dr. Erasmo Smith Naye Krusei Not detected Normal NOT DETECTED [facility] Comment on above: Performed By: #### B CID2 ####[facility] [address]ns[address] [place], [place] [address]Dr. Erasmo Smith Naye Parapsilosis Not detected Normal NOT DETECTED [facility] Comment on above: Performed By: #### B CID2 ####[facility] [address] [place], [place] [address]Dr. Erasmo Smith Naye Tropicalis Not detected Normal NOT DETECTED [facility] Comment on above: Performed By: #### B CID2 ####[facility] [address] [place], [place] [address]Dr. Heavenean Smith CTX-M Resistant Gene Not Applicable Normal NOT DETECTE D [facility] Comment on above: Performed By: #### B CID2 ####[facility] [facility] Ckbqhevlmx[address] [place], [place] [address]Dr. Erasmo Smith E. Cloacae complex Not detected Normal NOT DETECTED [facility] Comment on above: Performed By: #### B CID2 ####[facility] Zgpvhqxpoc5775[address] [place], [place] [address]Dr. Heavenean Smith E. faecalis Not detected Normal NOT DETECTED [facility] Comment on above: Performed By: #### B CID2 ####[facility] Ghcuwmihlr2405[address] [place], [place] [address]Dr. Heavenean Smith E. faecium Not detected Normal NOT DETECTED [facility] Comment on above: Performed By: #### B CID2 ####[facility] Sfhbtygtic3368[address] [place], [place] [address]Dr. Heavenean Smith Enterobacteriaceae Detected Critically abnormal NOT DETECTED [facility] Comment on above: Performed By: #### B CID2 ####[facility] Rigqhvwlem2201[address] [place], [place] [address]Dr. Heavenean Smith Escherichia coli Detected Critically abnormal NOT DETECTED [facility] Comment on above: Performed By: #### B CID2 ####[facility] Kztldpzvez4489[address] [place], [place] [address]Dr. Erasmo Smith H. influenzae Not detected Normal NOT DETECTED [facility] Comment on above: Performed By: #### B CID2 ####[facility] Noprbvaigj0232[address] [place], [place] [address]Dr. Erasmo Smith IMP Resistant Gene Not Applicable Normal NOT DETECTED [facility] Comment on above: Performed By: #### B CID2 ####[facility] Lggjqiakri4439[address] [place], [place] [address]Dr. Erasmo Smith K. oxytoca Not detected Normal NOT DETECTED [facility] Comment on above: Performed By: #### B CID2 ####[facility] Hmqabasgvb27[address] [place], [place] [address]Dr. Erasmo Smith K. pneumoniae Not detected Normal NOT DETECTED [facility] Comment on above: Performed By: #### B CID2 ####[facility] Ohubdajghn3911[address] [place], [place] [address]Dr. Erasmo Smith Klebsiella aerogenes Not detected Normal NOT DETECTED [facility] Comment on above: Performed By: #### B CID2 ####[facility] Tvmccrqxhl6777[address] [place], [place] [address]Dr. Erasmo Smith KPC Resistant Gene Not detected Normal NOT DETECTED [facility] Comment on above: Performed By: #### B CID2 ####[facility] Eqfjrvcwow56264[address] [place], [place] [address]Dr. Erasmo Smith List. monocytogenes Not detected Normal NOT DETECTED [facility] Comment on above: Performed By: #### B CID2 ####[facility] Dbzlneoacx0009[address] [place], [place] [address]Dr. Erasmo Smith Mcr-1 Resistant Gene Not Applicable Normal NOT DETECTE D [facility] Comment on above: Performed By: #### B CID2 ####[facility] Tvbzrclzur050[address] [place], [place] [address]Dr. Erasmo Smith mecA/C Not Applicable Normal NOT DETECTED [facility] Comment on above: Performed By: #### B CID2 ####[facility] Tgmbmpcmbj989347 [address] [place], [place] [address]Dr. Erasmo Smith mecA/C MREJ Not Applicable Normal NOT DETECTED [facility] Comment on above: Performed By: #### B CID2 ####[facility] Luzmhtggqf6895[address] [place], [place] [address]Dr. Erasmo Smith N. meningitidis Not detected Normal NOT DETECTED The [facility] Comment on above: Performed By: #### B CID2 ####[facility] Zhgjsqyzcb224[address] [place], [place] [address]Dr. Erasmo Smith NDM Resistant Gene Not Applicable Normal NOT DETECTED [facility] Comment on above: Performed By: #### B CID2 ####[facility] Feaxltethx7835[address] [place], [place] [address]Dr. Erasmo Smith Oxa-48-like Not Applicable Normal NOT DETECTED [facility] Comment on above: Performed By: #### B CID2 ####[facility] Owpxntqvty9933[address] [place], [place] [address]Dr. Erasmo Smith Proteus Not detected Normal NOT DETECTED [facility] Comment on above: Performed By: #### B CID2 ####[facility] Wtvrejnbfi5824[address] [place], [place] [address]Dr. Erasmo Smith Pseud. aeruginosa Not detected Normal NOT DETECTED [facility] Comment on above: Performed By: #### B CID2 ####[facility] Httgqbrxye3020[address] [place], [place] [address]Dr. Erasmo Smith S. maltophilia Not detected Normal NOT DETECTED [facility] Comment on above: Performed By: #### B CID2 ####[facility] Aksgtyjoqw484[address] [place], [place] [address]Dr. Erasmo Smith Salmonella Not detected Normal NOT DETECTED [facility] Comment on above: Performed By: #### B CID2 ####[facility] Syaritvsqg301[address] [place], [place] [address]Dr. Erasmo Smith Seratia marcescens Not detected Normal NOT DETECTED [facility] Comment on above: Performed By: #### B CID2 ####[facility] Rrzjuabbui433[address] [place], [place] [address]Dr. Erasmo Smith Site: l ac Normal [facility] Comment on above: Performed By: #### B CID2 ####[facility] Moirwdponz454247 [address] [place], [place] [address]Dr. Yiean Smith Staph. aureus Not detected Normal NOT DETECTED [facility] Comment on above: Performed By: #### B CID2 ####[facility] Gpndcjnbzq874[address] [place], [place] [address]Dr. Erasmo Luis Staph. epidermidis Not detected Normal NOT DETECTED [facility] Comment on above: Performed By: #### B CID2 ####[facility] Fkefznfhke1409[address] [place], [place] [address]Dr. Erasmo Simth Staph. lugdunensis Not detected Normal NOT DETECTED [facility] Comment on above: Performed By: #### B CID2 ####[facility] Metikxcsbo7680[address] [place], [place] [address]Dr. Yilan Smith Staphylococcus Not detected Normal NOT DETECTED [facility] Comment on above: Performed By: #### B CID2 ####[facility] Yecxbpgpsg9545[address] [place], [place] [address]Dr. Erasmo Smith Strep. agalactiae Not detected Normal NOT DETECTED [facility] Comment on above: Performed By: #### B CID2 ####[facility] Xittjnqivu2800[address] [place], [place] [address]Dr. Erasmo Smith Strep. pneumoniae Not detected Normal NOT DETECTED [facility] Comment on above: Performed By: #### B CID2 ####[facility] Nuumdcgbob0829[address] [place], [place] [address]Dr. Yilan Smith Strep. pyogenes Not detected Normal NOT DETECTED [facility] Comment on above: Performed By: #### B CID2 ####[facility] Iehmjiaelp949[address] [place], [place] [address]Dr. Yilan Smith Streptococcus Not detected Normal NOT DETECTED [facility] Comment on above: Performed By: #### B CID2 ####[facility] Xqsxelvygm2712[address] [place], [place] [address]DrMeena Smith Fran/B Resist. Gene Not detected Normal NOT DETECTED [facility] Comment on above: Performed By: #### B CID2 ####[facility] Hdrgfdkyya809[address] [place], [place] [address]DrMeena Smith VIM Resistant Gene Not Applicable Normal NOT DETECTED [facility] Comment on above: Performed By: #### B CID2 ####[facility] [address] [place] [address]DrMeena Smith BNPon 12-02-2022 Natriuretic peptide B (Bld) [Mass/Vol] 1059.0 pg/mL Normal <=1,800.[address] [facility] Comment on above: Performed By: #### B DENSITY CONTROL PUNCHER #### [facility] [address] [place] [address] Dr. Erasmo Smith CBC AUTO DIFFon 12-02-2022 BASO # 0.0 103/ul Normal 0.0-0.[address] [facility] Comment on above: Performed By: #### C BC ####[facility] Fcvjymefjf9369[address] [place], [place] [address]Dr. Erasmo Smith Basophils/100 WBC (Bld) 0.2 % Normal 0.2-2.0 [facility] Comment on above: Performed By: #### C BC ####[facility] Tkyxahcfwv249[address] [place], [place] [address]DrMeena Smith EO # 0.0 103/ul Normal 0.0-0.7 [facility] Comment on above: Performed By: #### C BC ####[facility] [address] [place] [address]DrMeena Smith Eosinophils/100 WBC (Bld) 0.0 % Critically low 0.9-7.0 [facility] Comment on above: Performed By: #### C BC ####[facility] Wytdsitmlw248[address] [place], [place] [address]DrMeena Smith Erythrocyte distribution width (RBC) [Ratio] 17.3 % Critically high 11.0-15.0 [facility] Comment on above: Performed By: #### C BC ####[facility] [address] [place] [address]Dr. Erasmo Smith Hematocrit (Bld) [Volume fraction] 31.4 % Critically low 36.0-48.0 [facility] Comment on above: Performed By: #### C BC ####[facility] [address]fs[address] [place] [address]Dr. Erasmo Smith Hemoglobin (Bld) [Mass/Vol] 10.0 g/dL Critically low 12.0-16.0 [facility] Comment on above: Performed By: #### C BC ####[facility] Jgypglimcg4879[address] [place], [place] [address]Dr. Erasmo Smith IG # 0.06 10e3/ul Critically high 0.00-0.03 [facility] Comment on above: Performed By: #### C BC ####[facility] Ozqhbaujvi6087[address] [place], [place] [address]Dr. Erasmo Smith IG % 0.4 % Normal 0.0-0.[address] [facility] Comment on above: Performed By: #### C BC ####[facility] Duqklejyso59[address] [place], [place] [address]Dr. Erasmo Smith LYMPH # 1.3 103/ul Normal 1.2-3.8 [facility] Comment on above: Performed By: #### C BC ####[facility] Ejegxyazhu8025[address] [place], [place] [address]Dr. Erasmo Smith Lymphocytes/100 WBC (Bld) 8.1 % Critically low 20.5-60.0 [facility] Comment on above: Performed By: #### C BC ####[facility] Hbmhxqklpc93[address] [place], [place] [address]Dr. Erasmo Smith MANUAL DIFF REQ NO Normal [facility] Comment on above: Performed By: #### C BC ####[facility] Wgxsljskzo308[address] [place], [place] [address]Dr. Erasmo Smith MCH (RBC) [Entitic mass] 25.6 pg Critically low 26.7-34.0 [facility] Comment on above: Performed By: #### C BC ####[facility] [address] [place] [address]Dr. Erasmo Smith MCHC (RBC) [Mass/Vol] 31.8 g/dL Normal 29.9-35.2 [facility] Comment on above: Performed By: #### C BC ####[facility] R[address]zxf[address]cpv[address] [place] [address]Dr. Erasmo Smith MCV (RBC) [Entitic vol] 80.3 fL Critically low 81.0-99.0 [facility] Comment on above: Performed By: #### C BC ####[facility] [address] [place] [address]Dr. Erasmo Smith MONO # 0.6 103/ul Normal 0.3-0.8 [facility] Comment on above: Performed By: #### C BC ####[facility] [address]tam[address] [place] [address]Dr. Erasmo Smith Monocytes/100 WBC (Bld) 3.7 % Normal 1.7-12.0 [facility] Comment on above: Performed By: #### C BC ####[facility] K[address]vqre[address] [place], [place] [address]Dr. Erasmo Smith NEUT # 14.5 103/ul Critically high 1.4-6.5 [facility] Comment on above: Performed By: #### C BC ####[facility] [address] [place] [address]Dr. Erasmo Smith Neutrophils/100 WBC (Bld) 87.6 % Critically high 43.0-75.0 [facility] Comment on above: Performed By: #### C BC ####[facility] Zhdlxxswka[address] [place], [place] [address]Dr. Erasmo Smith Platelet mean volume (Bld) [Entitic vol] 10.0 fL Normal 9.5-13.5 [facility] Comment on above: Performed By: #### C BC ####[facility] [address] [place] [address]Dr. Erasmo Smith PLT 206 103/ul Normal 150-450 [facility] Comment on above: Performed By: #### C BC ####[facility] [address] [place], [place] [address]Um. Erasmo Smith RBC 3.91 106/ul Critically low 4.20-5.40 [facility] Comment on above: Performed By: #### C BC ####[facility] [address] [place], [place] [address]Vi. Erasmo Smith WBC 16.5 103/ul Critically high 4.0-11.0 [facility] Comment on above: Performed By: #### C BC ####[facility] [address] [place], [place] [address]Df. Erasmo Smith ECHOCARDIO M/2D COMPLETEon 0 12-02-2022 ECHOCARDIO M/2D COMPLETE Patient: BREANN STARKS Exam Date: 12/02/2022 : 1945 Gender:F Ordering : KAYLEY HOLMAN . Admission #: [id number] Family : DR LUISANA JOHNSON . Order #: [id number] CLICK HERE TO VIEW EXAM ECHOCARDIOGRAM REPORT [...] M.D. on 12/02/2022 at 21:58 Normal [facility] MAGNESIUMon 12-02-2022 Magnesium [Mass/Vol] 2.0 mg/dL Normal 1.8-2.4 [facility] Comment on above: Performed By: #### B DENSITY CONTROL PUNCHER #### [facility] [address] [place] [address] Dr. Erasmo Smith PROF 14(COMP METB)on 023 Albumin [Mass/Vol] 2.7 g/dL Critically low 3.4-5.0 [facility] Comment on above: Performed By: #### B DENSITY CONTROL PUNCHER #### [facility] [address] [place] [address] Dr. Erasmo Smith Albumin/Globulin [Mass ratio] 0.6 {ratio} Normal [facility] Comment on above: Performed By: #### B DENSITY CONTROL PUNCHER #### [facility] [address] [place] [address] Dr. Erasmo Smith ALP [Catalytic activity/Vol] 128 U/L Critically high 46-[address] [facility] Comment on above: Performed By: #### B DENSITY CONTROL PUNCHER #### [facility] [address] [place] [address] Dr. Erasmo Smith ALT [Catalytic activity/Vol] 34 U/L Normal 14-[address] [facility] Comment on above: Performed By: #### B DENSITY CONTROL PUNCHER #### [facility] [address] [place] [address] Dr. Erasmo Smith Anion gap [Moles/Vol] 10.6 mmol/L Normal [facility] Comment on above: Performed By: #### B DENSITY CONTROL PUNCHER #### [facility] [address] [place] [address] Dr. Erasmo Smith AST [Catalytic activity/Vol] 27 U/L Normal 15-[address] [facility] Comment on above: Performed By: #### B DENSITY CONTROL PUNCHER #### [facility] [address] [place] [address] Dr. Erasmo Smith Bilirubin [Mass/Vol] 0.5 mg/dL Normal 0.2-1.[address] [facility] Comment on above: Performed By: #### B DENSITY CONTROL PUNCHER #### [facility] [address] [place] [address] Dr. Erasmo Smith Calcium [Mass/Vol] 8.4 mg/dL Critically low 8.5-10.1 [facility] Comment on above: Performed By: #### B DENSITY CONTROL PUNCHER #### [facility] [address] [address] [address] Erasmo Smith Chloride [Moles/Vol] 104 mmol/L Normal 98-107 [facility] Comment on above: Performed By: #### B DENSITY CONTROL PUNCHER #### [facility] [address] [place] [address] Dr. Erasmo Smith CO2 [Moles/Vol] 26.2 mmol/L Normal 21.0-32.0 [facility] Comment on above: Performed By: #### B DENSITY CONTROL PUNCHER #### [facility] [address] [place] [address] Dr. Erasmo Smith Creatinine [Mass/Vol] 0.52 mg/dL Critically low 0.55-1.02 [facility] Comment on above: Performed By: #### B DENSITY CONTROL PUNCHER #### [facility] [address] [place] [address] Dr. Erasmo Smith EGFR-AF SUDANESE >60 Normal >=60 [facility] Comment on above: Performed By: #### B DENSITY CONTROL PUNCHER #### [facility] [address] [place] [address] Dr. Erasmo Smith EGFR-NON AF SUDANESE >60 Normal >=60 [facility] Comment on above: Performed By: #### B DENSITY CONTROL PUNCHER #### [facility] [address] [place] [address] Dr. Erasmo Smith Globulin (S) [Mass/Vol] 4.3 g/dL Normal [facility] Comment on above: Performed By: #### B DENSITY CONTROL PUNCHER #### [facility] [address] [place] [address] Dr. Erasmo Smith Glucose [Mass/Vol] 135 mg/dL Critically high 74-106 [facility] Comment on above: Performed By: #### B DENSITY CONTROL PUNCHER #### [facility] [address] [place] [address] Dr. Erasmo Smith Potassium [Moles/Vol] 3.8 mmol/L Normal 3.5-5.[address] [facility] Comment on above: Performed By: #### B DENSITY CONTROL PUNCHER #### [facility] [address] [place] [address] Dr. Erasmo Smith Protein [Mass/Vol] 7.0 g/dL Normal 6.4-8.2 [facility] Comment on above: Performed By: #### B DENSITY CONTROL PUNCHER #### [facility] [address] [place] [address] Dr. Erasmo Smith Sodium [Moles/Vol] 137 mmol/L Normal 136-145 [facility] Comment on above: Performed By: #### B DENSITY CONTROL PUNCHER #### [facility] [address] [place] [address] Dr. Erasmo Smith Urea nitrogen [Mass/Vol] 16.0 mg/dL Normal 7.0-18.[address] [facility] Comment on above: Performed By: #### B DENSITY CONTROL PUNCHER #### [facility] [address] [place] [address] Dr. Erasmo Smith Urea nitrogen/Creatinine [Mass ratio] 30.8 mg/mg Normal [facility] Comment on above: Performed By: #### B DENSITY CONTROL PUNCHER #### [facility] [address] [place] [address] Dr. Erasmo Smith PROTIMEon 12-02-2022 INR Coag (PPP) [Relative time] 4.39 {INR} Critically high [facility] Comment on above: Performed By: #### P T #### [facility] [address] [place] [address] Dr. Erasmo Smith INR GUIDELINES SEE BELOW Normal [facility] Comment on above: Result Comment: ABNER RED INR: 2.0 - 3.0 CONDITIONS NOT LISTED BELOW 2.5 - 3.5 FOR PROSTHETIC HEART VALVE REPLACEMENT 2.5 - 3.5 RECURRENT THROMBOSIS Performed By: #### P T #### [facility] [address] [place] [address] Dr. Erasmo Smith PT Coag (PPP) [Time] 42.8 s Critically high 9.0-11.[address] [facility] Comment on above: Performed By: #### P T #### [facility] [address] [place] [address] Dr. Erasmo Smith UA RANDOM W/MICROSCOPICon BACTERIA NONE SEEN Normal NONE SEEN [facility] Comment on above: Performed By: #### U AMIC ####[facility] [address] [place] [address]Dr. Erasmo Smith Bilirubin Ql (U) Negative Normal NEGATIVE [facility] Comment on above: Performed By: #### U AMIC ####[facility] [address] [place] [address]Dr. Erasmo Smith CAST NONE SEEN Normal NONE SEEN [facility] Comment on above: Performed By: #### U AMIC ####[facility] Wzdqhekqjt[address] [place], [place] [address]Dr. Erasmo Smith Clarity (U) CLEAR Normal CLEAR [facility] Comment on above: Performed By: #### U AMIC ####[facility] Ennunygswz[address] [place], [place] [address]Dr. Erasmo Smith Color (U) YELLOW Normal YELLOW [facility] Comment on above: Performed By: #### U AMIC ####[facility] Msmjoudlhg[address] [place], [place] [address]Dr. Erasmo Smith Crystals LM Nom (Urine sed) NONE SEEN Normal NONE SEEN [facility] Comment on above: Performed By: #### U AMIC ####[facility] Viubmalhry[address] [place], [place] [address]Dr. Erasmo Smith Epithelial cells LM Ql (Urine sed) RARE Normal NONE SEEN /RARE [facility] Comment on above: Performed By: #### U AMIC ####[facility] Frqufjrbjy[address] [place], [place] [address]Dr. Erasmo Smith Glucose Ql (U) Negative Normal NEGATIVE [facility] Comment on above: Performed By: #### U AMIC ####[facility] Tutoojyfzl[address] [place], [place] [address]Dr. Erasmo Smith Hemoglobin Ql (U) SMALL Abnormal NEGATIVE [facility] Comment on above: Performed By: #### U AMIC ####[facility] Kywlpdftvc[address] [place], [place] [address]Dr. Erasmo Smith Ketones Ql (U) 15 mg/dl Abnormal NEGATIVE The [facility] Comment on above: Performed By: #### U AMIC ####[facility] [address] [place] [address]Dr. Erasmo Smith LEUKOCYTES Negative Normal NEGATIVE [facility] Comment on above: Performed By: #### U AMIC ####[facility] [address] [place] [address]Dr. Erasmo Smith MUCOUS NONE SEEN Normal NONE SEEN [facility] Comment on above: Performed By: #### U AMIC ####[facility] [address] [place] [address]Dr. Erasmo Luis Nitrite Ql (U) Negative Normal NEGATIVE [facility] Comment on above: Performed By: #### U AMIC ####[facility] Ts[address] [place], [place] [address]Dr. Erasmo Smith pH (U) 6.0 [pH] Normal 5-9 [facility] Comment on above: Performed By: #### U AMIC ####[facility] [address] [place], [place] [address]Dr. Erasmo Luis RBC 0-2 Normal 0-2 [facility] Comment on above: Performed By: #### U AMIC ####[facility] [address] [place], [place] [address]Dr. Erasmo Smith SPEC GRAVITY 1.025 Normal 1.005-<=1.02 5 [facility] Comment on above: Performed By: #### U AMIC ####[facility] [address] [place] [address]Dr. Heavenean Smith UA PROTEIN TRACE Normal NEGATIVE/ TRACE [facility] Comment on above: Performed By: #### U AMIC ####[facility] [address] [place], [place] [address]Dr. Erasmo Luis Urobilinogen Qn (U) 4 {Shraddha'U}/dL Abnormal 0.2 - 1.0 [facility] Comment on above: Performed By: #### U AMIC ####[facility] [address] [place] [address]Dr. Heavenean Smith WBC 0-2 Abnormal NONE SEEN [facility] Comment on above: Performed By: #### U AMIC ####[facility] [address] [place], [place] [address]Dr. Erasmo Smith CARDIAC ROSA ELENA 3-6on 3 CK [Catalytic activity/Vol] 53 U/L Normal 26-192 [facility] Comment on above: Performed By: #### C MREP #### [facility] [address] [address] [address] Erasmo Smith CK.MB [Mass/Vol] 0.90 ng/mL Normal <=3.60 [facility] Comment on above: Performed By: #### C MREP #### [facility] [address] [address] [address] Erasmo Smith HSTROP 116.7 pg/mL Critically high 4.0-51.3 [facility] Comment on above: Result Comment: CUT- OFF POINTS HAVE BEEN ESTABLISHED BASED ON THE FOURTH UNIVERSAL DEFINITIONS OF MYOCARDIAL INFARCTION. THE UPPER REFERENCE LIMIT (URL) OF TROPONIN, DEFINED THE 99TH PERCENTILE OF cTnI DISTRIBUTION IN A REFERENCE POPULATION, HAS BEEN CONFIRMED THE DECISION THRESHOLD FOR [place] DIAGNOSIS. Performed By: #### C MREP #### [facility] [address] [address] [address] Erasmo Smith CK [Catalytic activity/Vol] 47 U/L Normal 26-[address] [facility] Comment on above: Performed By: #### B DENSITY CONTROL PUNCHER #### [facility] [address] [address] [address] Erasmo BAE.MB [Mass/Vol] 1.00 ng/mL Normal <=3.60 [facility] Comment on above: Performed By: #### B DENSITY CONTROL PUNCHER #### [facility] [address] [address] [address] Erasmo Smith HSTROP 154.3 pg/mL Critically high 4.0-51.3 [facility] Comment on above: Result Comment: CUT- OFF POINTS HAVE BEEN ESTABLISHED BASED ON THE FOURTH UNIVERSAL DEFINITIONS OF MYOCARDIAL INFARCTION. THE UPPER REFERENCE LIMIT (URL) OF TROPONIN, DEFINED THE 99TH PERCENTILE OF cTnI DISTRIBUTION IN A REFERENCE POPULATION, HAS BEEN CONFIRMED THE DECISION THRESHOLD FOR [place] DIAGNOSIS. Performed By: #### B DENSITY CONTROL PUNCHER #### [facility] [address] [address] [address] Erasmo Smith CBC W MANUAL DIFFon 12-02-19 23 ATYPICAL LYMPH # Normal [facility] Comment on above: Performed By: #### C BCMAN #### [facility] [address] [place] [address] Dr. Erasmo Smith ATYPICAL LYMPH % Normal [facility] Comment on above: Performed By: #### C BCMAN #### [facility] [address] [place] [address] Dr. Erasmo Smith BAND # 0.6 103/ul Critically high 0.0-0.3 [facility] Comment on above: Performed By: #### C BCMAN #### [facility] [address] [place] [address] Dr. Erasmo Smith BAND % 3 % Normal 0-[address] [facility] Comment on above: Performed By: #### C ANGELA #### [facility] [address] [place] [address] Dr. Erasmo Smith BASOM # 0.00 103/ul Normal 0.00-0.[address] [facility] Comment on above: Performed By: #### C ANGELA #### [facility] [address] [place] [address] Dr. Erasmo Smith BASOM % 0.0 % Critically low 0.2-2.0 [facility] Comment on above: Performed By: #### C ANGELA #### [facility] [address] [place] [address] Dr. Erasmo Smith BLAST # Normal [facility] Comment on above: Performed By: #### C BCBLAISE #### [facility] [address] [place] [address] Dr. Erasmo Smith BLAST % Normal [facility] Comment on above: Performed By: #### C BCBLAISE #### [facility] [address] [place] [address] Dr. Erasmo Smith CORRECTED WBC Normal 4.0-11.0 [facility] Comment on above: Performed By: #### C ANGELA #### [facility] [address] [place] [address] Dr. Erasmo Smith EOS # 0.19 103/ul Normal 0.00-0.[address] [facility] Comment on above: Performed By: #### C ANGELA #### [facility] [address] [address] [address] Erasmo Smith EOS% 1.0 % Normal 0.9-7.[address] [facility] Comment on above: Performed By: #### C ANGELA #### [facility] [address] [address] [address] Erasmo Smith HCT 32.7 % Critically low 36.0-48.0 [facility] Comment on above: Performed By: #### C ANGELA #### [facility] [address] [address] [address] Erasmo Smith HGB 10.5 g/dl Critically low 12.0-16.0 [facility] Comment on above: Performed By: #### C ANGELA #### [facility] [address] [address] [address] Erasmo Smith LYMPHM # 0.76 103/ul Critically low 1.20-3.80 [facility] Comment on above: Performed By: #### C ANGELA #### [facility] [address] [place] [address] Dr. Erasmo Smith LYMPHM% 4.0 % Critically low 20.5-60.0 [facility] Comment on above: Performed By: #### C ANGELA #### [facility] [address] [address] [address] Erasmo Smith MCH 25.9 pg Critically low 26.7-34.0 [facility] Comment on above: Performed By: #### C ANGELA #### [facility] [address] [address] [address] Erasmo Smith MCHC 32.1 g/dl Normal 29.9-35.[address] [facility] Comment on above: Performed By: #### C ANGELA #### [facility] [address] [address] [address] Erasmo Smith MCV 80.5 fL Critically low 81.0-99.0 [facility] Comment on above: Performed By: #### C ANGELA #### [facility] [address] [address] [address] Erasmo Smith METAMYELOCYTE # Normal [facility] Comment on above: Performed By: #### C ANGELA #### [facility] [address] [address] [address] Erasmo Smith METAMYELOCYTE % Normal [facility] Comment on above: Performed By: #### C ANGELA #### [facility] [address] [address] [address] Erasmo Smith MONOM# 1.14 103/ul Critically high 0.30-0.80 [facility] Comment on above: Performed By: #### C ANGELA #### [facility] [address] [place] [address] Dr. Erasmo Smith MONOM% 6.0 % Normal 1.7-12.[address] [facility] Comment on above: Performed By: #### C ANGELA #### [facility] [address] [place] [address] Dr. Erasmo Smith MPV 9.4 fL Critically low 9.5-13.5 [facility] Comment on above: Performed By: #### C ANGELA #### [facility] [address] [place] [address] Dr. Erasmo Smith MYELOCYTE # Normal [facility] Comment on above: Performed By: #### C ANGELA #### [facility] [address] [address] [address] Erasmo Smith MYELOCYTE % Normal [facility] Comment on above: Performed By: #### C ANGELA #### [facility] [address] [address] [address] Erasmo Smith NRBC Normal [facility] Comment on above: Performed By: #### C ANGELA #### [facility] [address] [address] [address] Erasmo Smith PLT 195 103/ul Normal 150-450 [facility] Comment on above: Performed By: #### C ANGELA #### [facility] [address] [address] [address] Erasmo Smith RBC 4.06 106/ul Critically low 4.20-5.40 [facility] Comment on above: Performed By: #### C ANGELA #### [facility] [address] [address] [address] Erasmo Smith RDW 17.7 % Critically high 11.0-15.0 [facility] Comment on above: Performed By: #### C ANGELA #### [facility] [address] [address] [address] Erasmo Smith SEG # 16.34 103/ul Critically high 1.40-6.50 [facility] Comment on above: Performed By: #### C ANGELA #### [facility] [address] [address] [address] Erasmo Smith SEG % 86.0 % Critically high 43.0-75.0 [facility] Comment on above: Performed By: #### C ANGELA #### [facility] [address] [address] [address] Erasmo Smith WBC 19.0 103/ul Critically high 4.0-11.0 [facility] Comment on above: Performed By: #### C ANGELA #### [facility] [address] [address] [address] HEAD WO CONon [...] SALOME MCCORMICK Date: 2022 14:50 Normal [facility] CULTURE BLOODon 2022 Microscopic examination of blood, culture Culture Observations: Aerobic and Anaerobic bottle positive. BCID: E. Coli Culture Observations: Refer to for VIOLET. Isolate 1 Escherichia coli Growth of Normal [facility] Comment on above: Performed By: #### B LDCX2 ####[facility] [address] [place] [id number]. Erasmo Smith Covid-19 PCR ([facility])on 11-11 SARS-CoV-2 (COVID-19) RNA EMILY+probe Ql (Unsp spec) Not detected Normal NOT DETECTED [facility] Comment on above: Result Comment: When [...] for this test is supported by the [employer] Supervisor of Health and Human Service's declaration that [...] used). Performed By: #### C MREP #### [facility] [address] [address] [address] Erasmo Smith LACTATE/LACTIC ACIDon 2022 Lactate [Moles/Vol] 1.2 mmol/L Normal 0.4-2.0 [facility] Comment on above: Performed By: #### L ACT ####[facility] [address] [place] [id number]. Erasmo Smith PH VENOUS BLOODon 2022 PCO2 VENOUS 37.8 mmHg Critically low 40.0-52.0 [facility] Comment on above: Performed By: #### P HVEN ####[facility] [address] [place] [address]Dr. Erasmo Smith pH VENOUS 7.417 Normal 7.330-7.[address] [facility] Comment on above: Performed By: #### P HVEN ####[facility] [address] [place] [address]Dr. Erasmo Smith PROF 14(COMP METB)on 023 Albumin [Mass/Vol] 3.1 g/dL Critically low 3.4-5.0 [facility] Comment on above: Performed By: #### H ALEXSANDER, CMP ####[facility] [address] [place] [address]Dr. Erasmo Smith Albumin/Globulin [Mass ratio] 0.8 {ratio} Normal [facility] Comment on above: Performed By: #### H ALEXSANDER, CMP ####[facility] [address] [place] [address]Dr. Erasmo Smith ALP [Catalytic activity/Vol] 194 U/L Critically high 46-[address] [facility] Comment on above: Performed By: #### H ALEXSANDER, CMP ####[facility] [address] [place] [address]Dr. Erasmo Smith ALT [Catalytic activity/Vol] 37 U/L Normal 14-[address] [facility] Comment on above: Performed By: #### H ALEXSANDER, CMP ####[facility] [address] [place] [address]Dr. Erasmo Smith Anion gap [Moles/Vol] 14.6 mmol/L Normal [facility] Comment on above: Performed By: #### H ALEXSANDER, CMP ####[facility] [address] [place] [address]Dr. Erasmo Smith AST [Catalytic activity/Vol] 32 U/L Normal 15-[address] [facility] Comment on above: Performed By: #### H STROPN, CMP ####[facility] [address] [place] [address]Dr. Erasmo Smith Bilirubin [Mass/Vol] 1.0 mg/dL Normal 0.2-1.[address] [facility] Comment on above: Performed By: #### H STROPN, CMP ####[facility] [address] [place] [address]Dr. Erasmo Smith Calcium [Mass/Vol] 8.9 mg/dL Normal 8.5-10.1 [facility] Comment on above: Performed By: #### H STROPN, CMP ####[facility] [address] [place] [address]Dr. Erasmo Smith Chloride [Moles/Vol] 103 mmol/L Normal 98-107 [facility] Comment on above: Performed By: #### H STROPN, CMP ####[facility] [address] [place] [address]Dr. Erasmo Smith CO2 [Moles/Vol] 23.6 mmol/L Normal 21.0-32.0 [facility] Comment on above: Performed By: #### H STROPN, CMP ####[facility] [address] [place], [place] [address]Dr. Erasmo Smith Creatinine [Mass/Vol] 0.69 mg/dL Normal 0.55-1.[address] [facility] Comment on above: Performed By: #### H STROPN, CMP ####[facility] [address] [place], [place] [address]Dr. Erasmo Smith EGFR-AF SUDANESE >60 Normal >=60 [facility] Comment on above: Performed By: #### H STROPN, CMP ####[facility] [address] [place], [place] [address]Dr. Erasmo Msith EGFR-NON AF SUDANESE >60 Normal >=[address] [facility] Comment on above: Performed By: #### H STROPN, CMP ####[facility] [address] [place], [place] [address]Dr. Erasmo Smith Globulin (S) [Mass/Vol] 4.1 g/dL Normal [facility] Comment on above: Performed By: #### H STROPN, CMP ####[facility] [address] [place], [place] [address]Dr. Erasmo Smith Glucose [Mass/Vol] 121 mg/dL Critically high 74-106 [facility] Comment on above: Performed By: #### H ALEXSANDER, CMP ####[facility] [address] [place] [address]Dr. Erasmo Smith Potassium [Moles/Vol] 3.2 mmol/L Critically low 3.5-5.[address] [facility] Comment on above: Performed By: #### H ALEXSANDER, CMP ####[facility] [address] [place] [address]Dr. Erasmo Smith Protein [Mass/Vol] 7.2 g/dL Normal 6.4-8.2 [facility] Comment on above: Performed By: #### H ALEXSANDER, CMP ####[facility] [address] [place], [place] [address]Dr. Erasmo Smith Sodium [Moles/Vol] 138 mmol/L Normal 136-145 [facility] Comment on above: Performed By: #### H ALEXSANDER, CMP ####[facility] [address] [place] [address]Dr. Erasmo Smith Urea nitrogen [Mass/Vol] 17.0 mg/dL Normal 7.0-18.[address] [facility] Comment on above: Performed By: #### H ALEXSANDER, CMP ####[facility] [address] [place], [place] [address]Dr. Erasmo Smith Urea nitrogen/Creatinine [Mass ratio] 24.6 mg/mg Normal [facility] Comment on above: Performed By: #### H ALEXSANDER, CMP ####[facility] [address] [place] [address]Dr. Erasmo Smith PROTIMEon 2022 INR Coag (PPP) [Relative time] 3.58 {INR} Normal [facility] Comment on above: Performed By: #### P T, PTT #### [facility] [address] [address] [address] Erasmo Smith INR GUIDELINES SEE BELOW Normal [facility] Comment on above: Result Comment: ABNER RED INR: 2.0 - 3.0 CONDITIONS NOT LISTED BELOW 2.5 - 3.5 FOR PROSTHETIC HEART VALVE REPLACEMENT 2.5 - 3.5 RECURRENT THROMBOSIS Performed By: #### P T, PTT #### [facility] [address] [address] [address] Erasmo Smith PT Coag (PPP) [Time] 35.3 s Critically high 9.0-11.6 [facility] Comment on above: Performed By: #### P T, PTT #### [facility] [address] [place] [address] Dr. Erasmo Smith PTTon 2022 aPTT Coag (Bld) [Time] 40.3 s Critically high 22.3-36. 2 [facility] Comment on above: Performed By: #### P T, PTT #### [facility] [address] [place] [address] Dr. Erasmo Smith TROPONIN, HIGH SENSITIVITYon 2022 HSTROP 194.7 pg/mL Critically high 4.0-51.3 [facility] Comment on above: Result Comment: CUT- OFF POINTS HAVE BEEN ESTABLISHED BASED ON THE FOURTH UNIVERSAL DEFINITIONS OF MYOCARDIAL INFARCTION. THE UPPER REFERENCE LIMIT (URL) OF TROPONIN, DEFINED THE 99TH PERCENTILE OF cTnI DISTRIBUTION IN A REFERENCE POPULATION, HAS BEEN CONFIRMED THE DECISION THRESHOLD FOR [place] DIAGNOSIS. Performed By: #### C MREP #### [facility] [address] [place] [address] Dr. Erasmo Smith HSTROP 218.0 pg/mL Critically high 4.0-51.3 [facility] Comment on above: Result Comment: CUT- OFF POINTS HAVE BEEN ESTABLISHED BASED ON THE FOURTH UNIVERSAL DEFINITIONS OF MYOCARDIAL INFARCTION. THE UPPER REFERENCE LIMIT (URL) OF TROPONIN, DEFINED THE 99TH PERCENTILE OF cTnI DISTRIBUTION IN A REFERENCE POPULATION, HAS BEEN CONFIRMED THE DECISION THRESHOLD FOR [place] DIAGNOSIS. Performed By: #### B DENSITY CONTROL PUNCHER #### [facility] [address] [place] [address] Dr. Erasmo Smith XR CHEST 1 Von [...] by: HONG ALSTON Date: 2022 14:[address] [facility] MAMM SCREEN 3D TOÑITO CADon 11-26-2022 MG MAMM SCREEN 3D TOÑITO CAD Patient: BREANN STARKS Exam Date: 11/26/2022 : 1945 Gender:F Ordering : DR LUISANA JOHNSON . Admission #: [id number] Family : Order #: [id number] CLICK HERE TO VIEW EXAM RADIOLOGY REPORT [...] Treatments None Family Cancers None LOCATION: [facility] BREAST [...] M.D. on 11/26/2022 at 14:13 Normal [facility] PROF 14(COMP METB)on 022 Albumin [Mass/Vol] 3.8 g/dL Normal 3.4-5.0 [facility] Comment on above: Performed By: #### C MREP #### [facility] [address] [place] [address] Dr. Erasmo Smith Albumin/Globulin [Mass ratio] 0.8 {ratio} Normal [facility] Comment on above: Performed By: #### C MREP #### [facility] [address] [place] [address] Dr. Erasmo Smith ALP [Catalytic activity/Vol] 102 U/L Normal 46-[address] [facility] Comment on above: Performed By: #### C MREP #### [facility] [address] [place] [address] Dr. Erasmo Smith ALT [Catalytic activity/Vol] 47 U/L Normal 14-[address] [facility] Comment on above: Performed By: #### C MREP #### [facility] [address] [place] [address] Dr. Erasmo Smith Anion gap [Moles/Vol] 12.5 mmol/L Normal [facility] Comment on above: Performed By: #### C MREP #### [facility] [address] [place] [address] Dr. Erasmo Smith AST [Catalytic activity/Vol] 36 U/L Normal 15-[address] [facility] Comment on above: Performed By: #### C MREP #### [facility] [address] [place] [address] Dr. Erasmo Smith Bilirubin [Mass/Vol] 0.3 mg/dL Normal 0.2-1.[address] [facility] Comment on above: Performed By: #### C MREP #### [facility] [address] [place] [address] Dr. Erasmo Smith Calcium [Mass/Vol] 8.9 mg/dL Normal 8.5-10.1 [facility] Comment on above: Performed By: #### C MREP #### [facility] [address] [place] [address] Dr. Erasmo Smith Chloride [Moles/Vol] 106 mmol/L Normal 98-[address] [facility] Comment on above: Performed By: #### C MREP #### [facility] [address] [place] [address] Dr. Erasmo Smith CO2 [Moles/Vol] 26.9 mmol/L Normal 21.0-32.0 [facility] Comment on above: Performed By: #### C MREP #### [facility] [address] [address] [address] Erasmo Smith Creatinine [Mass/Vol] 0.79 mg/dL Normal 0.55-1.02 [facility] [facility] Comment on above: Performed By: #### C MREP #### [facility] [address] [address] [address] Erasmo Smith EGFR-AF SUDANESE >60 Normal >=60 [facility] Comment on above: Performed By: #### C MREP #### [facility] [address] [address] [address] Erasmo Smith EGFR-NON AF SUDANESE >60 Normal >=[address] [facility] Comment on above: Performed By: #### C MREP #### [facility] [address] [place] [address] Dr. Erasmo Smith Globulin (S) [Mass/Vol] 4.6 g/dL Normal [facility] Comment on above: Performed By: #### C MREP #### [facility] [address] [address] [address] Erasmo Smith Glucose [Mass/Vol] 102 mg/dL Normal 74-106 [facility] Comment on above: Performed By: #### C MREP #### [facility] [address] [place] [address] Dr. Erasmo Smith Potassium [Moles/Vol] 4.4 mmol/L Normal 3.5-5.[address] [facility] Comment on above: Performed By: #### C MREP #### [facility] [address] [address] [address] Erasmo Smith Protein [Mass/Vol] 8.4 g/dL Critically high 6.4-8.2 [facility] Comment on above: Performed By: #### C MREP #### [facility] [address] [place] [address] Dr. Erasmo Smith Sodium [Moles/Vol] 141 mmol/L Normal 136-145 [facility] Comment on above: Performed By: #### C MREP #### [facility] [address] [address] [address] Erasmo Smith Urea nitrogen [Mass/Vol] 28.0 mg/dL Critically high 7.0-18.[address] [facility] Comment on above: Performed By: #### C MREP #### [facility] [address] [place] [address] Dr. Erasmo Smith Urea nitrogen/Creatinine [Mass ratio] 35.4 mg/mg Normal [facility] Comment on above: Performed By: #### C MREP #### [facility] [address] [place] [address] Dr. Erasmo Smith CBC AUTO DIFFon 07-12-2022 BASO # 0.1 103/ul Normal 0.0-0.[address] [facility] Comment on above: Performed By: #### B DENSITY CONTROL PUNCHER #### [facility] [address] [place] [address] Dr. Erasmo Smith Basophils/100 WBC (Bld) 0.5 % Normal 0.2-2.[address] [facility] Comment on above: Performed By: #### B DENSITY CONTROL PUNCHER #### [facility] [address] [place] [address] Dr. Erasmo Smith EO # 0.2 103/ul Normal 0.0-0.[address] [facility] Comment on above: Performed By: #### B DENSITY CONTROL PUNCHER #### [facility] [address] [place] [address] Dr. Erasmo Smith Eosinophils/100 WBC (Bld) 2.5 % Normal 0.9-7.[address] [facility] Comment on above: Performed By: #### B DENSITY CONTROL PUNCHER #### [facility] [address] [place] [address] Dr. Erasmo Smith Erythrocyte distribution width (RBC) [Ratio] 17.2 % Critically high 11.0-15.[address] [facility] Comment on above: Performed By: #### B DENSITY CONTROL PUNCHER #### [facility] [address] [place] [address] Dr. Erasmo Smith Hematocrit (Bld) [Volume fraction] 35.0 % Critically low 36.0-48.[address] [facility] Comment on above: Performed By: #### B DENSITY CONTROL PUNCHER #### [facility] [address] [address] [address] Erasmo Smith Hemoglobin (Bld) [Mass/Vol] 11.3 g/dL Critically low 12.0-16.[address] [facility] Comment on above: Performed By: #### B DENSITY CONTROL PUNCHER #### [facility] [address] [place] [address] Dr. Erasmo Smith IG # 0.02 10e3/ul Normal 0.00-0.[address] [facility] Comment on above: Performed By: #### B DENSITY CONTROL PUNCHER #### [facility] [address] [place] [address] Dr. Erasmo Smith IG % 0.2 % Normal 0.0-0.[address] [facility] Comment on above: Performed By: #### B DENSITY CONTROL PUNCHER #### [facility] [address] [place] [address] Dr. Erasmo Smith LYMPH # 2.3 103/ul Normal 1.2-3.[address] [facility] Comment on above: Performed By: #### B DENSITY CONTROL PUNCHER #### [facility] [address] [place] [address] Dr. Erasmo Smith Lymphocytes/100 WBC (Bld) 25.4 % Normal 20.5-60.[address] [facility] Comment on above: Performed By: #### B DENSITY CONTROL PUNCHER #### [facility] [address] [place] [address] Dr. Erasmo Smith MANUAL DIFF REQ NO Normal [facility] Comment on above: Performed By: #### B DENSITY CONTROL PUNCHER #### [facility] [address] [place] [address] Dr. Erasmo Smith MCH (RBC) [Entitic mass] 25.5 pg Critically low 26.7-34.[address] [facility] Comment on above: Performed By: #### B DENSITY CONTROL PUNCHER #### [facility] [address] [place] [address] Dr. Erasmo Smith MCHC (RBC) [Mass/Vol] 32.3 g/dL Normal 29.9-35.[address] [facility] Comment on above: Performed By: #### B DENSITY CONTROL PUNCHER #### [facility] [address] [address] [address] Erasmo Smith MCV (RBC) [Entitic vol] 78.8 fL Critically low 81.0-99.[address] [facility] Comment on above: Performed By: #### B DENSITY CONTROL PUNCHER #### [facility] [address] [address] [address] Erasmo Smith MONO # 0.7 103/ul Normal 0.3-0.[address] [facility] Comment on above: Performed By: #### B DENSITY CONTROL PUNCHER #### [facility] [address] [place] [address] Dr. Erasmo Smith Monocytes/100 WBC (Bld) 7.5 % Normal 1.7-12.[address] [facility] Comment on above: Performed By: #### B DENSITY CONTROL PUNCHER #### [facility] [address] [place] [address] Dr. Erasmo Smith NEUT # 5.9 103/ul Normal 1.4-6.[address] [facility] Comment on above: Performed By: #### B DENSITY CONTROL PUNCHER #### [facility] [address] [place] [address] Dr. Erasmo Smith Neutrophils/100 WBC (Bld) 63.9 % Normal 43.0-75.[address] [facility] Comment on above: Performed By: #### B DENSITY CONTROL PUNCHER #### [facility] [address] [place] [address] Dr. Erasmo Smith Platelet mean volume (Bld) [Entitic vol] 9.0 fL Critically low 9.5-13.[address] [facility] Comment on above: Performed By: #### B DENSITY CONTROL PUNCHER #### [facility] [address] [place] [address] Dr. Erasmo Smith PLT 305 103/ul Normal 150-450 [facility] Comment on above: Performed By: #### B DENSITY CONTROL PUNCHER #### [facility] [address] [place] [address] Dr. Erasmo Smith RBC 4.44 106/ul Normal 4.20-5.40 [facility] Comment on above: Performed By: #### B DENSITY CONTROL PUNCHER #### [facility] [address] [place], [place] [address] Dr. Erasmo Smith WBC 9.2 103/ul Normal 4.0-11.[address] [facility] Comment on above: Performed By: #### B DENSITY CONTROL PUNCHER #### [facility] [address] [place], [place] [address] CHEST WO CONon [...] PAULA BROWN Date: 2022-05-27 15:27 Normal [facility] HEMOGLOBINon 04-20-2022 Hemoglobin (Bld) [Mass/Vol] 10.6 g/dL Critically low 12.0-16.0 [facility] Comment on above: Performed By: #### H GB ####[facility] [address] [place], [place] [address]MoDr. Erasmo Smith CULTURE SPUTUMon 04-02-2022 CULTURE SPUTUM Isolate 1 Pseudomonas aeruginosa Light growth of ORGANISM 1 Pseudomonas aeruginosa ANTIBIOTIC M.I.C RX STATUS Piperacillin/Tazobact am 8 S F Ceftazidime 2 S F Imipenem 1 S F Amikacin <=2 S F Gentamicin <=1 S F Tobramycin <=1 S F Ciprofloxacin <=0.25 S F Levofloxacin 0.25 S F Normal [facility] Comment on above: Performed By: #### S PUTCX ####[facility] [address] [address]Dr. Erasmo Smith CYTOLOGYon 03-30-2022 SENT TO REF LAB 03/31/22 [facility] Comment on above: Performed By: #### C YTO #### [facility] [address] [address] [address] Erasmo Smith SPUTUM GRAM STAINon 03-30-20 COMMENTS Normal [facility] Comment on above: Performed By: #### B DENSITY CONTROL PUNCHER #### [facility] [address] [address] [address] Erasmo Smith DIPHTHEROIDS [facility] Comment on above: Performed By: #### B DENSITY CONTROL PUNCHER #### [facility] [address] [address] [address] Erasmo Smith EPITHELIALS <[address] [facility] Comment on above: Performed By: #### B DENSITY CONTROL PUNCHER #### [facility] [address] [address] [address] Erasmo Smith FUNGAL ELEMENTS [facility] Comment on above: Performed By: #### B DENSITY CONTROL PUNCHER #### [facility] [address] [address] [address] Erasmo CINTRON NEG BACILLI FEW Normal [facility] Comment on above: Performed By: #### B DENSITY CONTROL PUNCHER #### [facility] [address] [address] [address] Erasmo CINTRON NEG DIPPLOCOCCI [facility] Comment on above: Performed By: #### B DENSITY CONTROL PUNCHER #### [facility] [address] [address] [address] Erasmo CINTRON POS BACILLI [facility] Comment on above: Performed By: #### B DENSITY CONTROL PUNCHER #### [facility] [address] [address] [address] Erasmo Smith GRAM POSITIVE COCCI MANY Normal [facility] Comment on above: Performed By: #### B DENSITY CONTROL PUNCHER #### [facility] [address] [address] [address] Erasmo Smith WBC (Bld) [#/Vol] 10*3/uL Normal [facility] Comment on above: Performed By: #### B DENSITY CONTROL PUNCHER #### [facility] [address] [address] [address] Erasmo Smith SPUTUM CULTUREon 03-01-2022 Epithelial cells LM Ql (Urine sed) Few Normal [facility] Comment on above: Performed By: #### C XSPTUM ####[facility] [address] [address]Dr. Erasmo Smith Gram Stain Evaluation Comment Normal [facility] Comment on above: Result Comment: This specimen is of good quality and is acceptable for routine bacterial culture. Performed By: #### C XSPTUM ####[facility] [address] [address] Erasmo Smith Lower Respiratory Culture Final report Normal [facility] Comment on above: Performed By: #### C XSPTUM ####[facility] [address] [place], [place] [address]Dr. Erasmo Smith Result 1 Comment Normal [facility] Comment on above: Result Comment: Few gram positive cocci Performed By: #### C XSPTUM ####[facility] [address] [place], [place] [address]Dr. Erasmo Smith Result Comment: Rout ine respiratory adria Result 2 Normal [facility] Comment on above: Performed By: #### C XSPTUM ####[facility] [address] [place], [place] [address]Dr. Erasmo Smith Result 3 Normal [facility] Comment on above: Performed By: #### C XSPTUM ####[facility] [address] [address]Dr. Erasmo Smith Result 4 Normal [facility] Comment on above: Performed By: #### C XSPTUM ####[facility] [address] [address]Dr. Erasmo Smith White Blood Cells Few Normal [facility] Comment on above: Performed By: #### C XSPTUM ####[facility] [address] [address]Dr. Erasmo Smith BNPon 02-24-2022 Natriuretic peptide B (Bld) [Mass/Vol] 319.0 pg/mL Normal <=900.[address] [facility] Comment on above: Performed By: #### B DENSITY CONTROL PUNCHER #### [facility] [address] [place] [address] Dr. Erasmo Smith CBC AUTO DIFFon 02-24-2022 BASO # 0.1 103/ul Normal 0.0-0.[address] [facility] Comment on above: Performed By: #### C MREP #### [facility] [address] [place] [address] Dr. Erasmo Smith Basophils/100 WBC (Bld) 0.5 % Normal 0.2-2.[address] [facility] Comment on above: Performed By: #### C MREP #### [facility] [address] [place] [address] Dr. Erasmo Smith EO # 0.3 103/ul Normal 0.0-0.[address] [facility] Comment on above: Performed By: #### C MREP #### [facility] [address] [place] [address] Dr. Erasmo Smith Eosinophils/100 WBC (Bld) 3.1 % Normal 0.9-7.[address] [facility] Comment on above: Performed By: #### C MREP #### [facility] [address] [place] [address] Dr. Erasmo Smith Erythrocyte distribution width (RBC) [Ratio] 15.1 % Critically high 11.0-15.[address] [facility] Comment on above: Performed By: #### C MREP #### [facility] [address] [place] [address] Dr. Erasmo Smith Hematocrit (Bld) [Volume fraction] 33.9 % Critically low 36.0-48.[address] [facility] Comment on above: Performed By: #### C MREP #### [facility] [address] [place] [address] Dr. Erasmo Smith Hemoglobin (Bld) [Mass/Vol] 10.7 g/dL Critically low 12.0-16.[address] [facility] Comment on above: Performed By: #### C MREP #### [facility] [address] [place] [address] Dr. Erasmo Smith IG # 0.03 10e3/ul Normal 0.00-0.[address] [facility] Comment on above: Performed By: #### C MREP #### [facility] [address] [place] [address] Dr. Erasmo Smith IG % 0.3 % Normal 0.0-0.[address] [facility] Comment on above: Performed By: #### C MREP #### [facility] [address] [place] [address] Dr. Erasmo Smith LYMPH # 2.8 103/ul Normal 1.2-3.[address] [facility] Comment on above: Performed By: #### C MREP #### [facility] [address] [place] [address] Dr. Erasmo Smith Lymphocytes/100 WBC (Bld) 30.6 % Normal 20.5-60.[address] [facility] Comment on above: Performed By: #### C MREP #### [facility] [address] [place] [address] Dr. Erasmo Smith MANUAL DIFF REQ NO Normal [facility] Comment on above: Performed By: #### C MREP #### [facility] [address] [place] [address] Dr. Erasmo Smith MCH (RBC) [Entitic mass] 26.9 pg Normal 26.7-34.[address] [facility] Comment on above: Performed By: #### C MREP #### [facility] [address] [place] [address] Dr. Erasmo Smith MCHC (RBC) [Mass/Vol] 31.6 g/dL Normal 29.9-35.[address] [facility] Comment on above: Performed By: #### C MREP #### [facility] [address] [place] [address] Dr. Erasmo Smith MCV (RBC) [Entitic vol] 85.2 fL Normal 81.0-99.[address] [facility] Comment on above: Performed By: #### C MREP #### [facility] [address] [place] [address] Dr. Erasmo Smith MONO # 0.7 103/ul Normal 0.3-0.[address] [facility] Comment on above: Performed By: #### C MREP #### [facility] [address] [place] [address] Dr. Erasmo Smith Monocytes/100 WBC (Bld) 7.9 % Normal 1.7-12.[address] [facility] Comment on above: Performed By: #### C MREP #### [facility] [address] [place] [address] Dr. Erasmo Smith NEUT # 5.3 103/ul Normal 1.4-6.[address] [facility] Comment on above: Performed By: #### C MREP #### [facility] [address] [place] [address] Dr. Erasmo Smith Neutrophils/100 WBC (Bld) 57.6 % Normal 43.0-75.[address] [facility] Comment on above: Performed By: #### C MREP #### [facility] [address] [place] [address] Dr. Erasmo Smith Platelet mean volume (Bld) [Entitic vol] 9.0 fL Critically low 9.5-13.[address] [facility] Comment on above: Performed By: #### C MREP #### [facility] [address] [place] [address] Dr. Erasmo Smith PLT 249 103/ul Normal 150-450 [facility] Comment on above: Performed By: #### C MREP #### [facility] [address] [place] [address] Dr. Erasmo Smith RBC 3.98 106/ul Critically low 4.20-5.40 [facility] Comment on above: Performed By: #### C MREP #### [facility] [address] [place] [address] Dr. Erasmo Smith WBC 9.1 103/ul Normal 4.0-11.0 [facility] Comment on above: Performed By: #### C MREP #### [facility] [address] [address] [address] Erasmo Smith CTA CHEST WO W [...] by: PAULA BROWN Date: 2022-02-24 18:[address] [facility] D-DIMERon 02-24-2022 D-DIMER 1.36 mg/L FEU Critically high <=0.59 [facility] Comment on above: Performed By: #### D DIM #### [facility] [address] [address] [address] Erasmo Smith D-DIMER COMMENTS SEE BELOW Normal [facility] Comment on above: Result Comment: Incr eases [...] hospitalization. Performed By: #### D DIM #### [facility] [address] [place] [address] Dr. Erasmo Smith PROF 14(COMP METB)on 022 Albumin [Mass/Vol] 3.6 g/dL Normal 3.4-5.0 [facility] Comment on above: Performed By: #### C MREP #### [facility] [address] [place] [address] Dr. Erasmo Smith Albumin/Globulin [Mass ratio] 0.8 {ratio} Normal [facility] Comment on above: Performed By: #### C MREP #### [facility] [address] [place] [address] Dr. Erasmo Smith ALP [Catalytic activity/Vol] 95 U/L Normal 46-[address] [facility] Comment on above: Performed By: #### C MREP #### [facility] [address] [place] [address] Dr. Erasmo Smith ALT [Catalytic activity/Vol] 45 U/L Normal 14-[address] [facility] Comment on above: Performed By: #### C MREP #### [facility] [address] [place] [address] Dr. Erasmo Smith Anion gap [Moles/Vol] 15.9 mmol/L Normal [facility] Comment on above: Performed By: #### C MREP #### [facility] [address] [place] [address] Dr. Erasmo Smith AST [Catalytic activity/Vol] 33 U/L Normal 15-[address] [facility] Comment on above: Performed By: #### C MREP #### [facility] [address] [place] [address] Dr. Erasmo Smith Bilirubin [Mass/Vol] 0.5 mg/dL Normal 0.2-1.[address] [facility] Comment on above: Performed By: #### C MREP #### [facility] [address] [address] [address] Erasmo Smith Calcium [Mass/Vol] 9.1 mg/dL Normal 8.5-10.1 [facility] Comment on above: Performed By: #### C MREP #### [facility] [address] [address] [address] Erasmo Smith Chloride [Moles/Vol] 103 mmol/L Normal 98-107 [facility] Comment on above: Performed By: #### C MREP #### [facility] [address] [address] [address] Erasmo Smith CO2 [Moles/Vol] 25.1 mmol/L Normal 21.0-32.0 [facility] Comment on above: Performed By: #### C MREP #### [facility] [address] [address] [address] Erasmo Smith Creatinine [Mass/Vol] 0.77 mg/dL Normal 0.55-1.[address] [facility] Comment on above: Performed By: #### C MREP #### [facility] [address] [address] [address] Erasmo Smith EGFR-AF SUDANESE >60 Normal >=60 [facility] Comment on above: Performed By: #### C MREP #### [facility] [address] [address] [address] Erasmo Smith EGFR-NON AF SUDANESE >60 Normal >=60 [facility] Comment on above: Performed By: #### C MREP #### [facility] [address] [address] [address] Erasmo Smith Globulin (S) [Mass/Vol] 4.3 g/dL Normal [facility] Comment on above: Performed By: #### C MREP #### [facility] [address] [address] [address] Erasmo Smith Glucose [Mass/Vol] 92 mg/dL Normal 74-106 [facility] Comment on above: Performed By: #### C MREP #### [facility] [address] [address] [address] Erasmo Smith Potassium [Moles/Vol] 4.0 mmol/L Normal 3.5-5.1 [facility] Comment on above: Performed By: #### C MREP #### [facility] [address] [address] [address] Erasmo Smith Protein [Mass/Vol] 7.9 g/dL Normal 6.4-8.2 [facility] Comment on above: Performed By: #### C MREP #### [facility] [address] [address] [address] Erasmo Smith Sodium [Moles/Vol] 140 mmol/L Normal 136-145 [facility] Comment on above: Performed By: #### C MREP #### [facility] [address] [address] [address] Erasmo Smith Urea nitrogen [Mass/Vol] 17.0 mg/dL Normal 7.0-18.[address] [facility] Comment on above: Performed By: #### C MREP #### [facility] [address] [address] [address] Erasmo Smith Urea nitrogen/Creatinine [Mass ratio] 22.1 mg/mg Normal [facility] Comment on above: Performed By: #### C MREP #### [facility] [address] [address] [address] Erasmo Smith PROTIMEon 02-24-2022 INR Coag (PPP) [Relative time] 2.28 {INR} Normal [facility] Comment on above: Performed By: #### P T, PTT ####[facility] [id number] [address]Dr. Erasmo Smith INR GUIDELINES SEE BELOW Normal [facility] Comment on above: Result Comment: ABNER RED INR: 2.0 - 3.0 CONDITIONS NOT LISTED BELOW 2.5 - 3.5 FOR PROSTHETIC HEART VALVE REPLACEMENT 2.5 - 3.5 RECURRENT THROMBOSIS Performed By: #### P T, PTT ####[facility] [id number] [address]Dr. Erasmo Smith PT Coag (PPP) [Time] 23.3 s Critically high 9.0-11.[address] [facility] Comment on above: Performed By: #### P T, PTT ####[facility] [id number] [place], [place] [address]Ip. Erasmo Smith PTTon 02-24-2022 aPTT Coag (Bld) [Time] 34.7 s Normal 22.3-36.2 Th e [facility] Comment on above: Performed By: #### P T, PTT ####[facility] [id number] [place], [place] [address]Wa. Erasmo Smith TROPONIN, HIGH SENSITIVITYon 02-24-2022 HSTROP 6.6 pg/mL Normal 4.0-51.[address] [facility] Comment on above: Result Comment: CUT- OFF POINTS HAVE BEEN ESTABLISHED BASED ON THE FOURTH UNIVERSAL DEFINITIONS OF MYOCARDIAL INFARCTION. THE UPPER REFERENCE LIMIT (URL) OF TROPONIN, DEFINED THE 99TH PERCENTILE OF cTnI DISTRIBUTION IN A REFERENCE POPULATION, HAS BEEN CONFIRMED THE DECISION THRESHOLD FOR [place] DIAGNOSIS. Performed By: #### C MREP #### [facility] [address] [place], [place] [address] Dr. Erasmo Smith PROTHROMBIN TIMEon INR Coag (PPP) [Relative time] 1.2 {INR} High 0.86-1.16 [facility] Comment on above: Result Comment: INR Theraputic Range: 2.0-3.5 Performed at [address] [address] PT Coag (PPP) [Time] 12.7 s Normal 9.3-12.7 [facility] ANTICOAGULANT COUMADIN Normal [facility] Vital Signs Date Time Vital Sign Value Performing Clinician Faci lity 10-29-2024 14:47-0500 Body weight 98.42 kg Renny Hansen II Work Phone: [facility] 10-29-2024 14:47-0500 Diastolic blood pressure 65 mm[Hg] Renny Hansen II Work Phone: [facility] 10-29-2024 14:47-0500 Heart rate 66 /min Renny Hansen II Work Phone: [facility] 10-29-2024 14:47-0500 Respiratory rate 20 /min Renny Hansen II Work Phone: [facility] 10-29-2024 14:47-0500 SaO2% (BldA) [Mass fraction] 97 % Renny Hansen II Work Phone: [facility] 10-29-2024 14:47-0500 Systolic blood pressure 150 mm[Hg] Renny Hansen II Work Phone: [facility] 10-17-2024 11:35-0500 Body height 149.9 cm Renny Hansen MD Work Phone: [facility] 10-17-2024 11:35-0500 Body mass index (BMI) [Ratio] 44.23 kg/m2 Renny Hansen MD Work Phone: [facility] 10-17-2024 11:35-0500 Body weight 99.34 kg Renny Hansen MD Work Phone: [facility] 10-17-2024 11:35-0500 Diastolic blood pressure 76 mm[Hg] Renny Hansen MD Work Phone: [facility] 10-17-2024 11:35-0500 Heart rate 61 /min Renny Hansen MD Work Phone: [facility] 10-17-2024 11:35-0500 SaO2% (BldA) [Mass fraction] 97 % Renny Hansen MD Work Phone: [facility] 10-17-2024 11:35-0500 Systolic blood pressure 138 mm[Hg] Renny Hansen MD Work Phone: [facility] 10-04-2024 14:56-0500 Body height 149.9 cm Dmitriy Duque DO Work Phone: [facility] 10-04-2024 14:56-0500 Body mass index (BMI) [Ratio] 45.04 kg/m2 Dmitriy Duque DO Work Phone: [facility] 10-04-2024 14:56-0500 Body weight 101.15 kg Dmitriy Laffay DO Work Phone: [facility] 10-04-2024 14:56-0500 Diastolic blood pressure 70 mm[Hg] Dmitriy Duque DO Work Phone: [facility] 10-04-2024 14:56-0500 Systolic blood pressure 120 mm[Hg] Dmitriy Duque DO Work Phone: [facility] 09-25-2024 11:13-0500 Body height 149.86 cm Renny Hansen II Work Phone: [facility] 09-25-2024 11:13-0500 Body mass index (BMI) [Ratio] 44.6 kg/m2 Renny Hansen II Work Phone: [facility] 09-25-2024 11:13-0500 Body temperature 97.3 [degF] Renny Hansen II Work Phone: [facility] 09-25-2024 11:13-0500 Body weight 100.24 kg Renny Hansen II Work Phone: [facility] 09-25-2024 11:13-0500 Diastolic blood pressure 69 mm[Hg] Renny Hansen II Work Phone: [facility] 09-25-2024 11:13-0500 Heart rate 72 /min Renny Hansen II Work Phone: [facility] 09-25-2024 11:13-0500 Respiratory rate 16 /min Renny Hansen II Work Phone: [facility] 09-25-2024 11:13-0500 SaO2% (BldA) [Mass fraction] 98 % Renny Hansen II Work Phone: [facility] 09-25-2024 11:13-0500 Systolic blood pressure 173 mm[Hg] Renny Hansen II Work Phone: [facility] 09-19-2024 15:12-0500 Body height 149.9 cm Luisana Cardozo NP Work Phone: [facility] 09-19-2024 15:12-0500 Body mass index (BMI) [Ratio] 44.07 kg/m2 Luisana Cardozo [employer] Work Phone: [facility] 09-19-2024 15:12-0500 Body weight 98.97 kg Luisana Cardozo [employer] Work Phone: [facility] 09-19-2024 15:12-0500 Diastolic blood pressure 68 mm[Hg] Luisana Cardozo [employer] Work Phone: [facility] 09-19-2024 15:12-0500 Heart rate 63 /min Luisana Cardozo [employer] Work Phone: [facility] 09-19-2024 15:12-0500 Respiratory rate 18 /min Luisana Cardozo [employer] Work Phone: [facility] 09-19-2024 15:12-0500 SaO2% (BldA) [Mass fraction] 95 % Luisana Cardozo [employer] Work Phone: [facility] 09-19-2024 15:12-0500 Systolic blood pressure 128 mm[Hg] Luisana Cardozo [employer] Work Phone: [facility] 09-18-2024 10:09-0500 Body mass index (BMI) [Ratio] 43.83 kg/m2 Christopher Jose Roberto DO Work Phone: [facility] 09-18-2024 10:09-0500 Body weight 98.43 kg Christopher Jose Roberto DO Work Phone: [facility] 09-18-2024 10:09-0500 Diastolic blood pressure 86 mm[Hg] Christopher Jose Roberto DO Work Phone: [facility] 09-18-2024 10:09-0500 Heart rate 66 /min Christopher Jose Roberto DO Work Phone: [facility] 09-18-2024 10:09-0500 SaO2% (BldA) [Mass fraction] 91 % Christopher Jose Roberto DO Work Phone: [facility] 09-18-2024 10:09-0500 Systolic blood pressure 136 mm[Hg] Christopher Jose Roberto DO Work Phone: [facility] 09-10-2024 13:00-0500 Body temperature 97.2 [degF] Renny Hansen II Work Phone: [facility] 09-10-2024 13:00-0500 Diastolic blood pressure 67 mm[Hg] Renny Hansen II Work Phone: [facility] 09-10-2024 13:00-0500 Heart rate 72 /min Renny Hansen II Work Phone: [facility] 09-10-2024 13:00-0500 Respiratory rate 19 /min Renny Hansen II Work Phone: [facility] 09-10-2024 13:00-0500 SaO2% (BldA) [Mass fraction] 96 % Renny Hansen II Work Phone: [facility] 09-10-2024 13:00-0500 Systolic blood pressure 157 mm[Hg] Renny Hansen II Work Phone: [facility] 08-24-2024 13:00-0500 Body height 149.86 cm Rennymaite Hansen II Work Phone: [facility] 08-24-2024 13:00-0500 Body mass index (BMI) [Ratio] 45.4 kg/m2 Renny Hansen II Work Phone: [facility] 08-24-2024 13:00-0500 Body temperature 97.8 [degF] Renny Hansen II Work Phone: [facility] 08-24-2024 13:00-0500 Body weight 102.05 kg Renny Hansen II Work Phone: [facility] 08-24-2024 13:00-0500 Diastolic blood pressure 69 mm[Hg] Renny Hansen II Work Phone: [facility] 08-24-2024 13:00-0500 Heart rate 61 /min Renny Hansen II Work Phone: [facility] 08-24-2024 13:00-0500 Respiratory rate 16 /min Renny Hansen II Work Phone: [facility] 08-24-2024 13:00-0500 SaO2% (BldA) [Mass fraction] 98 % Renny Hansen II Work Phone: [facility] 08-24-2024 13:00-0500 Systolic blood pressure 137 mm[Hg] Renny Hansen II Work Phone: [facility] 08-16-2024 10:33-0500 Body height 149.9 cm Renny Hansen MD Work Phone: [facility] 08-16-2024 10:33-0500 Body mass index (BMI) [Ratio] 44.23 kg/m2 Renny Hansen MD Work Phone: [facility] 08-16-2024 10:33-0500 Body weight 99.34 kg Renny Hansen MD Work Phone: [facility] 08-16-2024 10:33-0500 Diastolic blood pressure 80 mm[Hg] Renny Hansen MD Work Phone: [facility] 08-16-2024 10:33-0500 Heart rate 66 /min Renny Hansen MD Work Phone: [facility] 08-16-2024 10:33-0500 SaO2% (BldA) [Mass fraction] 95 % Renny Hansen MD Work Phone: [facility] 08-16-2024 10:33-0500 Systolic blood pressure 132 mm[Hg] Renny Hansen MD Work Phone: [facility] 08-02-2024 10:51-0500 Body height 149.9 cm Renny Hansen MD Work Phone: [facility] 08-02-2024 10:51-0500 Body mass index (BMI) [Ratio] 44.84 kg/m2 Renny Hansen MD Work Phone: [facility] 08-02-2024 10:51-0500 Body temperature 98.4 [degF] Renny Hansen MD Work Phone: [facility] 08-02-2024 10:51-0500 Body weight 100.7 kg Renny Hansen MD Work Phone: [facility] 08-02-2024 10:51-0500 Diastolic blood pressure 72 mm[Hg] Renny Hansen MD Work Phone: [facility] 08-02-2024 10:51-0500 Heart rate 60 /min Renny Hansen MD Work Phone: [facility] 08-02-2024 10:51-0500 SaO2% (BldA) [Mass fraction] 95 % Renny Hansen MD Work Phone: [facility] 08-02-2024 10:51-0500 Systolic blood pressure 134 mm[Hg] Renny Hansen MD Work Phone: [facility] 07-24-2024 10:48-0500 Body height 149.9 cm Eleanor Hemmer PA Work Phone: [facility] 07-24-2024 10:48-0500 Body mass index (BMI) [Ratio] 45.85 kg/m2 Eleanor Hemmer PA Work Phone: [facility] 07-24-2024 10:48-0500 Body weight 102.97 kg Eleanor Hemmer PA Work Phone: [facility] 07-24-2024 10:48-0500 Diastolic blood pressure 68 mm[Hg] Eleanor Hemmer PA Work Phone: [facility] 07-24-2024 10:48-0500 Heart rate 60 /min Eleanor Hemmer PA Work Phone: [facility] 07-24-2024 10:48-0500 SaO2% (BldA) [Mass fraction] 96 % Eleanor Hemmer PA Work Phone: [facility] 07-24-2024 10:48-0500 Systolic blood pressure 124 mm[Hg] Eleanor Hemmer PA Work Phone: [facility] 07-05-2024 08:50-0400 Body height 149.9 cm Renny Hansen MD Work Phone: [facility] 07-05-2024 08:50-0400 Body mass index (BMI) [Ratio] 46.66 kg/m2 Renny Hansen MD Work Phone: [facility] 07-05-2024 08:50-0400 Body weight 104.78 kg Renny Hansen MD Work Phone: [facility] 07-05-2024 08:50-0400 Diastolic blood pressure 74 mm[Hg] Renny Hansen MD Work Phone: [facility] 07-05-2024 08:50-0400 Heart rate 69 /min Renny Hansen MD Work Phone: [facility] 07-05-2024 08:50-0400 SaO2% (BldA) [Mass fraction] 96 % Renny Hansen MD Work Phone: [facility] 07-05-2024 08:50-0400 Systolic blood pressure 130 mm[Hg] Renny Hansen MD Work Phone: [facility] 05-31-2024 13:46-0400 Body height 149.9 cm Monster Calvillo [employer] Work Phone: [facility] 05-31-2024 13:46-0400 Body mass index (BMI) [Ratio] 47.87 kg/m2 Monster Calvillo [employer] Work Phone: [facility] 05-31-2024 13:46-0400 Body temperature 98.4 [degF] Monster Calvillo [employer] Work Phone: [facility] 05-31-2024 13:46-0400 Body weight 107.5 kg Monster Calvillo [employer] Work Phone: [facility] 05-31-2024 13:46-0400 Diastolic blood pressure 80 mm[Hg] Monster Calvillo [employer] Work Phone: [facility] 05-31-2024 13:46-0400 Heart rate 73 /min Monster Calvillo [employer] Work Phone: [facility] 05-31-2024 13:46-0400 SaO2% (BldA) [Mass fraction] 95 % Monster Valadezk [employer] Work Phone: [facility] 05-31-2024 13:46-0400 Systolic blood pressure 140 mm[Hg] Monster Valadezk [employer] Work Phone: [facility] 05-22-2024 13:17-0400 Body height 149.9 cm Boo Sherwin PA-C Work Phone: [facility] 05-22-2024 13:17-0400 Body mass index (BMI) [Ratio] 44.43 kg/m2 Boo Sherwin PA-C Work Phone: [facility] 05-22-2024 13:17-0400 Body weight 99.79 kg Boo Sherwin PA-C Work Phone: [facility] 03-02-2024 11:51-0400 Blood Pressure Location Ortega PARKL [facility] 03-02-2024 11:51-0400 Diastolic blood pressure 75 mm[Hg] Ortega PARKL [facility] 03-02-2024 11:51-0400 Heart rate 71 /min Ortega PARKL [facility] 03-02-2024 11:51-0400 Respiratory rate 16 /min Ortega PARKL [facility] 03-02-2024 11:51-0400 Systolic blood pressure 118 mm[Hg] Ortega PARKL [facility] 10-07-2021 16:00-0500 Body height 146.69 cm Hong Nevarez Other [facility] Other 10-07-2021 16:00-0500 Body mass index (BMI) [Ratio] 51.01 kg/m2 Hong Nevarez Other [facility] Other 10-07-2021 16:00-0500 Body weight 109.77 kg Hong Nevarez Other [facility] Other 08-26-2021 15:15-0500 Body height 146.69 cm Hong Nevarez Other [facility] Other 08-26-2021 15:15-0500 Body mass index (BMI) [Ratio] 51.07 kg/m2 Hong Nevarez Other [facility] Other 08-26-2021 15:15-0500 Body weight 109.91 kg Hong Nevarez Other [facility] Other Encounters Encounter Date Encounter Type Care Provider Facility Start: 11-27-2024 [facility] Start: 11-27-[address] [facility] Start: 11-13-2024 End: 11-13-[address] [facility] Start: 11-09-2024 End: 11-12-2024 Telephone encounter Jr. Sakina Cardenas DO Work Phone: [facility] Comment on above: OP Note Start: 11-07-2024 End: 11-07-2024 Bamboo flowsdemond Cardenas DO Work Phone: [facility] Start: 11-07-2024 End: 11-07-2024 Scovilledemond Cardenas DO Work Phone: [facility] Start: 11-07-2024 End: 11-07-2024 Office outpatient visit 15 minutes Jr. Sakina Cardenas DO Work Phone: 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, initial encounter ([facility] History of reverse total replacement of left shoulder joint Start: 11-07-2024 End: 11-07-2024 ambulatory SAKINA MARIO Not Available Start: 10-29-2024 Registered Recurring Renny batista II Work Phone: [facility] Work Phone: Start: 10-29-2024 End: 10-29-2024 ambulatory Renny Hansen Facility:[facility] Start: 10-29-2024 End: 10-29-2024 Patient encounter procedure Renny Hansen II Work Phone: [facility] Work Phone: Start: 10-29-2024 End: 10-29-2024 ambulatory Miguel Murphy MD Facility:[facility] Start: 10-24-2024 End: 10-24-2024 Patient encounter procedure Renny Hansen II Work Phone: [facility] [place] Work Phone: Start: 10-24-2024 End: 10-24-2024 ambulatory Renny Hansen II Work Phone: [facility] Work Phone: Start: 10-24-2024 End: 10-24-2024 Office outpatient visit 15 minutes Jr. Sakina Cardenas DO Work Phone: 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 Sakina C Stepanic DO Work Phone: [facility] Start: 10-24-2024 End: 10-24-2024 External Result Encounter Jr. Sakina Ovalle Stepanic DO Work Phone: [facility] External Department Unsolicited Start: 10-17-2024 End: 10-17-2024 Bamboo flowsheet Renny [...] mammogram; Phlebitis of left upper extremity Start: 10-17-2024 End: 10-17-2024 ambulatory RENNY HANSEN Not Available Start: 10-16-2024 End: 10-16-2024 Patient encounter procedure Renny Hansen II Work Phone: [facility] Start: 10-16-2024 End: 10-16-2024 ambulatory Renny Hansen II Work Phone: [facility] Work Phone: Start: 10-09-2024 End: 10-09-2024 Clinisync Result Encounter Generic External Data Provider [facility] External Department Unsolicited Start: 10-09-2024 End: 10-09-2024 Clinisync Result Encounter Generic External Data Provider [facility] External Department Unsolicited Start: 10-04-2024 End: 10-04-2024 ambulatory DMITRIY DUQUE Not Available Start: 10-04-2024 End: 10-04-2024 Office outpatient new 45 minutes Dmitriy Duque DO Work Phone: [facility] Comment on above: Enlarged lymph nodes in armpit (Primary Dx) Start: 10-03-2024 End: 10-03-2024 Clinisync Result Encounter Generic External Data Provider [facility] External Department Unsolicited Start: 10-03-2024 End: 10-03-2024 Clinisync Result Encounter Generic External Data Provider [facility] External Department Unsolicited Start: 10-02-2024 End: 10-02-2024 External Result Encounter Katharina Toledo [employer] Work Phone: [facility] External Department Unsolicited Start: 10-02-2024 End: 10-02-2024 External Result Encounter Katharina Toledo [employer] Work Phone: [facility] External Department Unsolicited Start: 10-02-2024 Registered Recurring Renny batista II Work Phone[facility] Work [facility]: Start: 09-25-2024 End: 09-25-2024 ambulatory Renny Hansen II Work Phone: [facility] Work Phone: Start: 09-25-2024 End: 09-25-2024 Patient encounter procedure Renny Hansen II Work Phone: [facility] Work Phone: Start: 09-24-2024 End: 09-24-2024 ambulatory [facility] Start: 09-19-2024 End: 09-19-2024 ambulatory LUISANA CARDOZO Not Available Start: 09-19-2024 End: 09-19-2024 Office outpatient visit 25 minutes Luisana Cardozo [employer] Work Phone: [facility] Comment on above: Acute cystitis with hematuria (Primary Dx); Burning with urination; Centrilobular emphysema (CMS/HCC); Morbid (severe) obesity due to excess calories (CMS/HCC); Body mass index (BMI) 40.0-44.9, adult (CMS/HCC); Chronic obstructive pulmonary disease, unspecified (CMS/HCC); Pulmonary hypertension, unspecified (CMS/HCC); Need for vaccination Start: 09-18-2024 End: 09-18-2024 Bamboo flowsheet Salome Cid DO Work Phone: [facility] Start: 09-18-2024 End: 09-18-2024 Bamboo flowsheet Tonichuck Jose Roberto DO Work Phone: [facility] Start: 09-18-2024 End: 09-18-2024 Office outpatient new 45 minutes Salome Cid DO Work Phone: [facility] Comment on above: Axillary lymphadenop athy (Primary Dx); Neck pain on left side; Left arm pain Start: 09-18-2024 End: 09-18-2024 ambulatory SALOME CID Not Available Start: 09-14-2024 End: 09-14-2024 Refill Renny Hansen MD Work Phone: [facility] Comment on above: Persistent atrial fi brillation (HCC) (CMS/HCC) Start: 09-10-2024 End: 09-10-2024 ambulatory Miguel Murphy MD Facility:[facility] Start: 08-24-2024 End: 08-24-2024 Patient encounter procedure Renny Hansen II Work Phone: [facility] [place] Work Phone: Start: 08-24-2024 End: 08-24-2024 ambulatory Pedro Pablo Cruz Facility:[facility] Start: 08-24-2024 End: 08-24-2024 External Result Encounter Katharina Toledo [employer] Work Phone: [facility] External Department Unsolicited Start: 08-24-2024 End: 08-24-2024 External Result Encounter Katharina Toledo NP Work Phone: [facility] External Department Unsolicited Start: 08-24-2024 End: 08-24-2024 Patient encounter procedure [facility]enny Hansen II [facility] Work Phone: Start: 08-20-2024 End: 08-20-2024 ambulatory Miguel Murphy MD Facility:[facility] Start: 08-16-2024 End: 08-16-2024 Bamboo flowsdemond Hansen MD Work Phone: [facility] Start: 08-16-2024 End: 08-16-2024 Bamboo flowsdemond Hansen MD Work Phone: [facility] [...] Available Start: 07-18-2024 End: 07-18-2024 ambulatory [facility] Start: 07-16-2024 End: 07-16-2024 Refill Monster [...] Not Available Start: 06-19-2024 End: 06-19-2024 ambulatory [facility] Start: 06-18-2024 End: 06-18-2024 Refill Monster Calvillo [employer] Work Phone: [facility] Comment on above: Acute on chronic nisa stolic (congestive) heart failure (CMS/HCC) Start: 05-31-2024 End: 05-31-2024 Bamboo flowsheet Monster Calvillo [employer] Work Phone: [facility] Start: 05-31-2024 End: 05-31-2024 Bamboo flowsheet Monster Calvillo [employer] Work Phone: [facility] Start: 05-31-2024 End: 05-31-2024 Office outpatient visit 15 minutes Monster Kilpatrickpatrick [employer] Work Phone: [facility] Comment on [...] on above: Acute pain of left s renée (Primary Dx); History of reverse total replacement of left shoulder joint Start: 05-09-2024 End: 05-09-2024 ambulatory SAKINA MARIO Not Available Start: 05-02-2024 End: 05-02-2024 Patient encounter procedure MD Shaikh Denis Work Phone: [facility] Work Phone: Start: 05-02-2024 End: 05-02-2024 ambulatory MD Shaikh Denis Work Phone: [facility] Work Phone: Start: 04-16-2024 End: 04-16-2024 ambulatory PEDRO PABLO CRUZ Not Available Start: 04-16-2024 End: 04-16-2024 ambulatory Miguel Murphy MD Facility:[facility] Start: 04-11-2024 End: 04-11-2024 ambulatory SHAIKH CIRA Not Available Start: 04-10-2024 End: 04-10-2024 Patient encounter procedure MD Shaikh Denis Work Phone: [facility] [place] Work Phone: Start: 04-10-2024 End: 04-10-2024 ambulatory MD Shaikh Denis Work Phone: [facility] Work Phone: Start: 04-02-2024 End: 04-02-2024 ambulatory Miguel Murphy MD Facility:[facility] Start: 03-29-2024 End: 03-29-2024 Patient encounter procedure MD Shaikh Denis Work Phone: [facility] Check Start: 03-29-2024 End: 03-29-2024 ambulatory MD Shaikh Denis Work Phone: [facility] Work Phone: Start: 03-12-2024 End: 03-12-2024 ambulatory SHAIKH CIRA Not Available Start: 03-07-2024 End: 03-07-2024 ambulatory Ortega ALEXANDER Facility:CD:[id number] Start: 03-02-2024 End: 03-02-2024 ambulatory Ortega ALEXANDER Facility:[facility] Start: 03-02-2024 End: 03-02-2024 Patient encounter procedure Ortega ALEXANDER [facility] [place] Start: 03-01-2024 ambulatory Ortega ALEXANDER Facility:[facility] Start: 02-27-2024 End: 02-27-2024 ambulatory SHAIKH CIRA Not Available Start: 01-17-2024 End: 01-17-2024 ambulatory [facility] Start: 12-29-2023 End: 12-29-2023 ambulatory SHAIKH CIRA Not Available Start: 12-27-2023 End: 12-27-2023 ambulatory DMITRIY MINOO [facility] Start: 12-26-2023 End: 12-26-2023 ambulatory Miguel Murphy MD Facility: [facility] Start: 11-16-2023 End: 11-16-2023 ambulatory Shaikh Cira Facility:[facility] Start: 10-17-2023 Briannao elaine Denis MD Work Phone: [facility] Start: 10-17-2023 Bamboo flowsdemond Denis MD Work Phone: [facility] Start: 10-11-2023 End: 10-11-2023 ambulatory MD Shaikh Denis Work Phone: [facility] Work Phone: Start: 10-11-2023 End: 10-11-2023 Patient encounter procedure MD Shaikh Denis Work Phone: [facility] [place] Work Phone: Start: 09-08-2023 End: 09-08-2023 ambulatory MD Shaikh Denis Work Phone: [facility] Work Phone: Start: 09-08-2023 End: 09-08-2023 Patient encounter procedure MD Shaikh Denis Work Phone: [facility] Check Start: 09-06-2023 Patient encounter [...] Start: 03-12-2022 End: 04-09-2022 ambulatory SAHU H CIRA Facility:[facility] Start: 02-25-2022 End: 02-25-[address] LUISANA JOHNSON . Facility:[facility] Start: 02-24-2022 End: 02-25-[address] LUISANA JOHNSON . Facility:[facility] Start: 10-07-2021 End: 10-07-2021 ambulatory Hong Jimenezdevon Other [facility] Other Start: 10-07-2021 Office outpatient vi sit 15 minutes Hong [place] [facility] Start: 08-26-2021 End: 08-26-2021 ambulatory Hong Nevarez Other [facility] Other Start: 08-26-2021 Office outpatient ne w 45 minutes [employer] [facility] Start: 10-11-2020 End: 10-13-2020 Evaluation and management of inpatient ZANE MAYNOR Facility:[facility] Procedures Date Procedure Procedure Detail Performing Clinician Start: 10-24-2024 C-reactive protein Jr. Sakina Ovalle Stepanic DO Work Phone: Start: 10-24-2024 DIFF AND CBC Jr. Sakina Ovalle Stepanic DO Work Phone: Start: 10-24-2024 Sedimentation rate r bc automated Jr. Sakina Ovalle Stepanic DO Work Phone: Start: 10-16-2024 Bilateral mammography D marlen Hansen II Work Phone: Start: 10-16-2024 Ultrasonography of axilla Renny Hansen II Work Phone: Start: 10-09-2024 CA ECHO DOPPLER COMPLETE Generic External Data Provider Start: 10-03-2024 ALL BASIC METABOLIC PANEL Generic External Data Provider Start: 10-03-2024 ALL LIPID PROFILE (FASTING) Generic External Data Provider Start: 10-02-2024 ISTAT XRAY CRE Katharina herrera [employer] Work Phone: Start: 10-02-2024 CT of left shoulder with contrast Renny Hansen II Work Phone: Start: 09-19-2024 Urnls dip stick/tabl et rgnt non-auto w/o micrscp Luisana Cardozo [employer] Work Phone: Start: 08-24-2024 Complete blood count with white cell differential, automated Katharina Toledo [employer] Work Phone: Start: 07-24-2024 ALL CBC WITH AUTO DIFF Eleanor Leahy PA Work Phone: Start: 07-24-2024 [employer] TI[employer] Filippo Leahy PA Work Phone: Start: 07-24-2024 Transferrin [Mass/vo lume] in Serum or Plasma Eleanor Leahy PA Work Phone: Start: 05-22-2024 Radex shoulder compl [...] abdominal hyst erectomy with bilateral salpingo-oophorectomy Ortega PARKREVENTIVE Plan of Treatment Date Care Activity Detail Author Start: 09-12-2027 Screening for malign ant neoplasm of colon [facility] Start: 10-17-2025 Medicare Annual Well ness (AWV) Medicare Annual Wellness (AWV) [facility] Start: 01-14-2025 End: 12-15-2025 DBT Breast - left diagnostic Left diagnostic mammogram with tomosynthesis Imaging Routine Abnormal mammogram Expected: 01/14/2025, Expires: 12/15/2025 [facility] Work Phone: Comment on above: Expected: 01/14/2025 , Expires: 12/15/2025 Start: 12-17-2024 End: 12-17-2024 Patient encounter procedure 12/17/2024 11:00 AM EDT Office Visit [facility] [address] [place] [address] Renny Hansen MD [address] [place] [address] [facility] Start: 11-07-2024 End: 11-07-2024 Patient encounter procedure [facility] Comment on above: Arrived Start: 11-05-2024 End: 11-05-2024 Patient encounter procedure [facility] Start: 10-30-2024 End: 10-30-2024 Patient encounter procedure 10/30/2024 2:15 PM EST [facility] [address] [place] [address] Dmitriy Duque, DO [address] [place] [address] [facility] Start: 10-24-2024 End: 10-24-2024 Patient encounter procedure 10/24/2024 2:15 PM EST Office Visit [facility] [address] [place] [address] Jr. Sakina Cardenas, [address] [place] [address] Injury of left shoulder and upper arm, sequela; Left shoulder pain, unspecified chronicity [facility] Comment on above: Injury of left shoul kathie and upper arm, sequela; Left shoulder pain, unspecified chronicity Start: 10-17-2024 End: 10-17-2024 Patient encounter procedure [facility] Comment on above: Arrived Start: 10-04-2024 End: 10-04-2024 Patient encounter procedure 10/04/2024 3:45 PM EST Consult [facility] [address] [place] [phone] Dmitriy Duque, DO [address] [place], [place] [id number] [facility] Start: 09-25-2024 Patient referral [facility] Work Phone: Start: 09-19-2024 End: 09-19-2024 Patient encounter procedure 09/19/2024 3:00 PM EST Office Visit [facility] [address] [place] [address] Luisana Cardozo, [employer] [address] [place] [address] [facility] Start: 09-19-2024 End: 09-19-2025 URINARY TRACT INFECTION (HTRX) URINARY TRACT INFECTION (HTRX) Lab Routine Burning with urination Expected: 09/19/2024 (Approximate), Expires: 09/19/2025 [facility] Work Phone: Comment on above: Expected: 09/19/2024 (Approximate), Expires: 09/19/2025 Start: 09-18-2024 End: 09-18-2024 Patient encounter procedure 09/18/2024 10:15 AM EST Office Visit [facility] [address] [place] [address] Salome Cid DO [address] [place] [address] Neck pain on left side [facility] [address] [facility] Comment on above: Neck pain on left si de Start: 09-14-2024 End: 09-14-2024 Patient encounter procedure 09/14/2024 10:00 AM EST Office Visit [facility] [address] [facility] [address] [place] [address] Renny Hansen MD [address] [facility] [address] [place] [address] [facility] Start: 09-10-2024 [facility] Start: 09-10-2024 [facility] Start: 09-06-2024 Medicare Annual Well ness (AWV) Medicare Annual Wellness (AWV) [facility] Start: 09-03-2024 [facility] Start: 08-31-2024 [facility] Start: 08-31-2024 [facility] Start: 08-23-2024 End: 08-23-2024 Patient encounter procedure 08/23/2024 11:45 AM EST Office Visit [facility] [address] [place] [address] Renny Hansen MD [address] [place] [address] [facility] Start: 08-16-2024 End: 08-16-2024 Patient encounter procedure 08/16/2024 10:30 AM EST Office Visit [facility] [address] [place] [address] Renny Hansen MD [address] [place] [address] [facility] Start: 08-02-2024 End: 08-02-2025 [...] blood loss Expected: 07/24/2024 (Approximate), Expires: 07/24/2025 [facility] Comment on above: Expected: 07/24/2024 (Approximate), Expires: 07/24/2025 Start: 07-19-2024 End: 07-19-2024 Patient encounter procedure 07/19/2024 12:00 PM EST Procedure Visit [facility] [address] [place] [address] [facility] Start: 07-05-2024 End: 07-05-2025 EMG AND NERVE CONDUCTION STUDY EMG AND NERVE CONDUCTION STUDY Neurology Routine Neck pain on left side Radicular pain in left arm Expected: 07/05/2024 (Approximate), Expires: 07/05/2025 [facility] Comment on above: Expected: 07/05/2024 (Approximate), Expires: 07/05/2025 Start: 07-05-2024 End: 09-04-2025 MG Breast - bilateral Screening Bilateral screening mammogram Imaging Routine Breast screening Expected: 07/05/2024 (Approximate), Expires: 09/04/2025 [facility] Work Phone: Comment on above: Expected: 07/05/2024 (Approximate), Expires: 09/04/2025 Start: 07-05-2024 End: 07-05-2024 Patient encounter procedure [facility] Comment on above: Arrived Start: 05-31-2024 End: 05-31-2024 Patient encounter procedure 05/31/2024 1:30 PM EDT Office Visit [facility] [address] [place] [address] Monster Calvillo, ELBERT [address] [place] [address] Arrived [facility] Comment on above: Arrived Start: 05-22-2024 End: 08-21-2024 C reactive protein [Mass/volume] in Serum or Plasma C-REACTIVE PROTEIN Lab Routine 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) Expected: 05/22/2024, Expires: 08/21/2024 [facility] Comment on above: Expected: 05/22/2024 , Expires: 08/21/2024 Start: 05-22-2024 End: 08-21-2024 CBC W Auto Differential panel - Blood COMPLETE BLOOD COUNT AND DIFFERENTIAL Lab Routine 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) Expected: 05/22/2024, Expires: 08/21/2024 [facility] Comment on above: Expected: 05/22/2024 , Expires: 08/21/2024 Start: 05-22-2024 End: 08-21-2024 Erythrocyte sedimentation rate SEDIMENTATION RATE, WESTERGREN Lab Routine 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) Expected: 05/22/2024, Expires: 08/21/2024 [facility] Comment on above: Expected: 05/22/2024 , Expires: 08/21/2024 Start: 05-22-2024 End: 05-22-2024 Patient encounter procedure 05/22/2024 2:00 PM EDT Office Visit [facility] [address] [place] [phone] Monster Calvillo, ELBERT [address] [place] [phone] [facility] Start: 05-13-2024 Covid-19 Vaccine ( season) Covid-19 Vaccine ( season) [facility] Start: 05-13-2024 Influenza vaccination Influenza Vacc ine (#1) [facility] Start: 05-09-2024 End: 05-09-2024 Patient encounter procedure 05/09/2024 10:00 AM EDT Office Visit [facility] [address] [place] [address] Jr. Sakina Cardenas, [address] [place] [address] [facility] Start: 11-07-2023 End: 11-07-2023 Patient encounter procedure 11/07/2023 2:30 PM EST Office Visit [facility] [address] [place] [address] Shaikh Denis MD [address] [place] [phone] [facility] Start: 10-17-2023 End: 10-17-2023 Patient encounter procedure 10/17/2023 10:15 AM EST Office Visit [facility] [address] [place] [phone] Shaikh Denis MD [address] [place] [address] Arrived [facility] Comment on above: Arrived Start: 09-12-2023 Advance Directive Discussion Advance Directive Discussion [facility] Start: 11-30-2012 Screening for osteoporosis Bone Dens ity Screening [facility] Start: 11-30-1997 Shingrix Vaccine (1 of 2) Reyes grix Vaccine (1 of 2) [facility] Start: 11-30-1992 Diabetes Screening Diabetes Screenin g [facility] Start: 11-30-1966 Urine microalbumin profile DTa P,Tdap,Td Vaccine (1 - Tdap) [facility] Start: 11-30-1965 Anxiety Screening Anxiety Screening [facility] Start: 11-30-1965 Depression Screening Depression Scre ening [facility] Start: 11-30-1965 Hepatitis C screening Hepatitis C Sc edyning [facility] Start: 1947 Screening for malign ant neoplasm of colon [facility] CBC W Auto Different ial panel - Blood CBC auto differential Lab Routine 10/02/2024 11:[address] [facility] Work Phone: CBC W Auto Different ial panel - Blood [facility] Work Phone: Comment on above: Ordered: 10/24/2024 Comprehensive metabo lic 1999 panel - Serum or Plasma [facility] Comprehensive metabo lic 1999 panel - Serum or Plasma [facility] CT Shoulder - left W contrast IV [facility] End: 06-21-2025 CT Shoulder - left WO contrast CT SHOULDER WO IVCON LEFT Radiology Routine 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) 1 Occurrences starting 05/22/2024 until 06/21/2025 [facility] Work Phone: Comment on above: 1 Occurrences starti ng 05/22/2024 until 06/21/2025 Iron and Iron bindin g capacity panel - Serum or Plasma Iron and TIBC Lab Routine 08/24/2024 2:[address] [facility] Work Phone: Iron and Iron bindin g capacity panel - Serum or Plasma Iron and TIBC Lab STAT 10/02/2024 11:54 AM EST [facility] Work Phone: Patient referral [facility] Work Phone: [facility] Immunizations Immunization Date Immunization Notes Care Provider [facility] 09-19-2024 Influenza, High-dose Seasonal, Quadrivalent, Preservative Free Luisana Cardozo NP Work Phone: [facility] 08-25-2023 influenza virus vacc ine, unspecified formulation Ortega ALEXANDER [facility] [place] 08-25-2023 Influenza, Seasonal, Quadrivalent, Adjuvanted Shaikh Cira CUBA Work Phone: [facility] 08-25-2023 RSV, recombinant, protein subunit RSVpreF, adjuvant reconstitu, 120mcg/0.5mL, PF (Arexvy) Shaikh Cira CUBA Work Phone: [facility] 07-08-2022 influenza virus vacc ine, unspecified formulation Ortega ALEXANDER [facility] 07-08-2022 Influenza, Seasonal, Quadrivalent, Adjuvanted Shaikh Cira CUBA Work Phone: [facility] 08-20-2021 influenza virus vacc ine, unspecified formulation Ortega ALEXANDER [facility] 08-20-2021 Influenza, Seasonal, Quadrivalent, Adjuvanted Shaikh Cira CUBA Work Phone: [facility] 08-20-2021 pneumococcal polysaccharide vaccine, [address] [facility] 11-18-2020 SARS-CoV-2 (COVID-19 ) mRNA-[address] [facility] 10-20-2020 SARS-CoV-2 (COVID-19 ) mRNA-[address] [facility] 08-04-2020 influenza virus vacc ine, unspecified formulation Ortega NILL [facility] 08-04-2020 Influenza, Seasonal, Quadrivalent, Adjuvanted Shaikh Cira CUBA Work Phone: [facility] 08-04-2020 pneumococcal conjuga te vaccine, [address] [facility] 08-06-2019 influenza virus vacc ine, unspecified formulation Ortega NILL [facility] 08-06-2019 influenza, high dose seasonal, preservative-free Shaikh Cira CUBA Work Phone: [facility] 07-05-2017 influenza virus vacc ine, unspecified formulation Ortega NILL [facility] 07-05-2017 pneumococcal conjuga te vaccine, [address] [facility] 07-05-2017 Seasonal trivalent influenza vaccine, adjuvanted, preservative free Shaikh Cira CUBA Work Phone: [facility] 06-29-2016 influenza virus vacc ine, unspecified formulation Ortega NILL [facility] 06-29-2016 Seasonal trivalent influenza vaccine, adjuvanted, preservative free Shaikh Cira CUBA Work Phone: [facility] 06-25-2015 influenza virus vacc ine, unspecified formulation Ortega ALEXANDER [facility] 06-25-2015 influenza, injectabl e, quadrivalent, contains preservative Shaikh Cira CUBA Work Phone: [facility] 06-12-2015 influenza virus vacc ine, unspecified formulation Ortega ALEXANDER [facility] 06-12-2015 seasonal influenza, intradermal, preservative free Shaikh Cira CUBA Work Phone: [facility] 07-12-2014 influenza virus vacc ine, unspecified formulation Ortega ALEXANDER [facility] 07-12-2014 influenza, injectabl e, quadrivalent, contains preservative Shaikh Cira CUBA Work Phone: [facility] 08-07-2013 influenza virus vacc ine, unspecified formulation Ortega ALEXANDER [facility] 08-07-2013 influenza, seasonal, injectable Shaikh Cira CUBA Work Phone: [facility] Payers Date Payer Category Payer Medicare (Managed Care) [facility] [id number] 2024 Unknown [id number] 2024 Unknown 2023 Self-pay [id number] 2023 Medicaid [employer] MEDICARE A DVANTAGE [id number] 2023 Private Health Insurance [facility] [id number] 2023 Private Health Insurance 2023 Managed Care HMO (unspecified) [employer] A[employer] [id number] 2023-Present [address] [place] [address] HMO [id number] 2007 Medicare [id number] 1959 Medicare [id number] 1959 Private Health Insurance [facility] [id number] 1947 Unknown [id number] 2.16.840.1.319831.3.579.2. 647 1947 Unknown [id number] 2.16.840.1.355818.3.579.2. 593 1947 Unknown [id number] 2.16.840.1.304252.3.579.2. 593 1947 Unknown [id number] 2.16.840.1.455778.3.579.2. 593 1947 Unknown [id number] 2.16.840.1.748455.3.579.2. 593 1947 Unknown [id number] 2.16.840.1.767803.3.579.2. 593 1947 Unknown [id number] 2.16.840.1.851135.3.579.2. 593 1947 Unknown [id number] 2.16.840.1.003428.3.579.2. 593 1947 Unknown [id number] 2.16.840.1.817864.3.579.2. 593 1947 Unknown [id number] 2.16.840.1.085127.3.579.2. 593 1947 Unknown [id number] 2.16.840.1.338869.3.579.2. 593 1947 Unknown [id number] 2.16.840.1.497396.3.579.2. 593 1947 Unknown [id number] 2.16.840.1.218434.3.579.2. 593 1947 Unknown [id number] 2.16.840.1.242698.3.579.2. 593 1947 Unknown [id number] 2.16.840.1.905455.3.579.2. 593 1947 Unknown [id number] 2.16.840.1.170940.3.579.2. 593 1947 Unknown [id number] 2.16.840.1.922584.3.579.2. 593 1947 Unknown [id number] 2.16.840.1.085950.3.579.2. 593 1947 Unknown [id number] 2.16.840.1.301118.3.579.2. 593 1947 Unknown [id number] 2.16.840.1.593617.3.579.2. 593 1947 Unknown [id number] 2.16.840.1.843944.3.579.2. 593 1947 Unknown [id number] 2.16.840.1.056421.3.579.2. 593 1947 Unknown [id number] 2.16.840.1.734081.3.579.2. 593 1947 Unknown [id number] 2.16.840.1.915234.3.579.2. 593 1947 Unknown [id number] 2.16.840.1.588194.3.579.2. 593 1947 Unknown [id number] 2.16.840.1.606440.3.579.2. 593 1947 Unknown [id number] 2.16.840.1.302348.3.579.2. 593 1947 Unknown [id number] 2.16.840.1.806109.3.579.2. 727 1947 Unknown [id number] 2.16.840.1.934185.3.579.2. 727 1947 Unknown [id number] 2.16840.1.184202.3.579.2. 1259 1947 Unknown [id number] 2.16.840.1.827521.3.579.2. 1259 1947 Unknown [id number] 2.16.840.1.192658.3.579.2. 1259 1947 Unknown [id number] 2.16.840.1.050906.3.579.2. 1259 1947 Unknown [id number] 2.16.840.1.602146.3.579.2. 1259 1947 Unknown [id number] 2.16.840.1.233116.3.579.2. 1258 1947 Unknown [id number] 2.16.840.1.543061.3.579.2. 1258 1947 Unknown [id number] 2.16.840.1.486957.3.579.2. 1258 1947 Unknown [id number] 2.16.840.1.999038.3.579.2. 1258 1947 Unknown [id number] 2.16.840.1.197914.3.579.2. 1258 1947 Unknown [id number] 2.16.840.1.305106.3.579.2. 1258 1947 Unknown [id number] 2..840.1.002197.3.579.2. 1258 1947 Unknown [id number] 2..840.1.638788.3.579.2. 1258 1947 Unknown [id number] 2.16.840.1.398094.3.579.2. 1258 1947 Unknown [id number] 2.16.840.1.065454.3.579.2. 1258 1947 Unknown [id number] 2.16.840.1.480378.3.579.2. 1258 1947 Unknown [id number] 2.16.840.1.700518.3.579.2. 1258 1947 Unknown [id number] 2.16.840.1.486596.3.579.2. 1258 1947 Unknown [id number] 2.16.840.1.242505.3.579.2. 1258 1947 Unknown [id number] 2.16.840.1.183731.3.579.2. 1258 1947 Unknown [id number] 2.16.840.1.581814.3.579.2. 196 1947 Unknown [id number] 2.16.840.1.056693.3.579.2. 196 1947 Unknown [id number] 2.16.840.1.102373.3.579.2. 196 1947 Unknown [id number] 2.16840.1.535525.3.579.2. 196 1947 Unknown [id number] 2.16840.1.955320.3.579.2. 196 1947 Unknown [id number] 2.16.840.1.168583.3.579.2. 196 Medicare Medicare Outpatient [id number] 1A [id number] Unknown [facility] [id number] Unknown [id number] 2.16840.1.909832.3.579.2. 531 Unknown [id number] 2.16840.1.733080.3.579.2. 531 Unknown [id number] 2.16840.1.354205.3.579.2. 531 Unknown [id number] 2.16840.1.351370.3.579.2. 531 Unknown [id number] 2.840.1.819869.3.579.2. 531 Unknown [id number] 2.16840.1.889481.3.579.2. 531 Unknown [id number] 2.16840.1.265578.3.579.2. 531 Unknown [id number] 2.16840.1.054007.3.579.2. 531 Social History Date Type Detail Facility Start: 08-30-2023 End: 10-10-2024 Sex Assigned At [facility] Start: 1945 Sex Assigned At Female [facility] Start: 08-18-2023 End: 10-17-2024 Tobacco smoking status NHIS Ex-smoker [facility] Start: 09-12-1967 History of tobacco use Current smoker [facility] Start: 09-12-1967 History of tobacco use Cigarette Smoker [facility] Start: 09-02-2023 Alcohol intake Not Asked [facility] Start: 08-30-2023 End: 10-10-2024 History of Social function [facility] Within the last year , have you been afraid of your partner or ex-partner? No [facility] How often do you att end episcopalian or jew services? Patient refused [facility] Do you belong to any clubs or organizations such as episcopalian groups, unions, fraternal or athletic groups, or [...] to buy more. DK or Refused [facility] Start: 08-18-2023 Alcohol Comment (Audit-C) : Negative [facility] Start: 1945 Sex Assigned At Not on file [facility] Start: 04-27-2013 End: 05-22-2024 Tobacco smoking status [facility] Never smoked tobacco (finding) [facility] Start: 05-22-2024 Tobacco use and exposure Smokeless tobacco non-user [facility] Start: 05-22-2024 End: 11-07-2024 Alcoholic beverage intake Current drinker of alcohol (finding) [facility] History of tobacco use Passive smoker [facility] Start: 11-07-[address] Start: 09-25-2024 End: 10-29-2024 Sex Female (finding) [facility] Goals Date Patient Goal Desired Activity /State Functional Status Date Assessment Result Facility 03-02-2024 Functional Status N/A [facility] General Surgery [place] Clinical Notes 08-26-2021 to 11-27-2024 Telephone Encounter - DANIELLE Sanon - 11/10/2024 9:39 AM ESTTelephone Encounter - DANIELLE Sanon - 11/10/2024 9:39 AM ESTTelephone Encounter - Silvina Ramseyer - 11/09/2024 11:43 AM EST Note Date & Type Note Facility 11-27-2024 Note Orthopedic Surgery Subjective Chief complaint: Chief Complaint Patient presents with Left Shoulder - Follow-up Breann Starks is a 78 y.o. 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 We saw her a couple weeks ago and just did a blind aspiration of the shoulder. That culture grew out staph sanguinous, but only on a broth culture. When the culture results came back last week she was placed on penicillin V. She states that in a week on being on the antibiotic her pain has significantly improved and she has noticed an improvement in her range of motion. She is finishing up that 1 week course of antibiotics and comes in today for a follow-up. Previous Treatments: Oral antibiotics History Past Surgical History: Procedure Laterality Date FOOT SURGERY X2 HAND SURGERY HYSTERECTOMY INSERT / REPLACE / REMOVE PACEMAKER 10/13/2020 SHOULDER SURGERY X4 TOTAL KNEE ARTHROPLASTY Bilateral TRIGGER FINGER RELEASE 08/12/2015 TUBAL LIGATION Past Medical History: Diagnosis Date Abnormal ECG Arrhythmia Atrial fibrillation (CMS/HCC) Coronary artery disease Hypertension Objective General: Body mass index is 44.43 kg/m???. No acute distress, comfortable Respiratory: Unlabored breathing with normal rate, no cough Cardiovascular: Warm well perfused extremities Psych: Appropriate mood behavior Shoulder Musculoskeletal Exam Inspection Left Left shoulder inspection is normal. Range of Motion Left Active forward elevation: 30. Shoulder active abduction: 40. Range of motion additional comments: left shoulder extension is about 30 degrees Neurovascular Left Left shoulder nerve sensation is normal. Imaging: none today Assessment/Plan Breann Starks is a 78 y.o. year old female with Pain in joint of left shoulder PLAN: as she had significant pain relief, and her motion is improving, I think it would be worthwhile to just continue with the oral antibiotic and do a 5 to 6-week course. We will at some point get her set up with infectious disease. It might be worth doing a aspiration under her fluoroscopy to get into the joint make sure that this is truly infected. I think trying to do a stage II revision of that reverse shoulder arthroplasty is going to be very difficult. She is not anxious to do that. If her symptoms recur infectious disease can talk to her about suppression versus doing something definitive. [facility] 11-13-2024 Note Orthopedic Surgery Subjective Pain of the Left Shoulder 11/13/24 Breann Starks is a 78 y.o. female presenting for evaluation of left shoulder pain. Patient reports that this been ongoing for several months. 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 Patient states that she has very limited motion of her shoulder due to the pain. Patient was seeing a provider at outside hospital who has been trending her inflammatory labs, which have been mildly elevated. Patient notes that she has redness of her shoulder and upper arm which have not improved. Patient does report some numbness and tingling in her fingers, although she has a history of cervical radiculopathy. History Past Surgical History: Procedure Laterality Date FOOT SURGERY X2 HAND SURGERY HYSTERECTOMY INSERT / REPLACE / REMOVE PACEMAKER 10/13/2020 SHOULDER SURGERY X4 TOTAL KNEE ARTHROPLASTY Bilateral TRIGGER FINGER RELEASE 08/12/2015 TUBAL LIGATION Past Medical History: Diagnosis Date Abnormal ECG Arrhythmia Atrial fibrillation ([facility]) Coronary artery disease Hypertension Objective General: Body mass index is 44.43 kg/m???. No acute distress, comfortable Left UE/Hand: Inspection- swelling and erythema overlying the left shoulder and upper arm Tender to palpation surrounding shoulder, otherwise non-tender ROM: Limited shoulder range of motion patient with flexion to 40 degrees, abduction to 20 full painless motion to all digits and the wrist Strength: bacteriology technician 5/5, thumb 5/5, interossei 5/5. wrist extension/flexion 5/5 Sensation: intact over median, ulnar, and radial nerve distributions Cardiovascular: Well-perfused digits Imaging X-rays of left shoulder 11/13/24: no acute findings, rTSA in place Imaging personally reviewed and interpreted by attending physician. Findings discussed with patient. Assessment/Plan Breann Starks is a 78 y.o. female with Pain in joint of left shoulder -We discussed options with the patient. Given clinical experience, we are concerned that there may be infection in her left shoulder. As such, we discussed option of aspiration of left shoulder to send fluid for analysis. This was completed today in clinic -Given that only 1 cc of fluid was able to be obtained from the shoulder, we may have patient follow-up with interventional radiology for an aspiration of the left shoulder. A referral for this was given today -Return to clinic after labs completed Marielos Mary MD Orthopaedic Surgery, PGY-2 11/13/24 1:41 PM By using the attestations below, the signing clinician agrees that I have read and verify that the documentation has been personally reviewed by me and ensure that the documentation accurately reflects the encounter. GC: I personally saw this patient on the day of the encounter, performed the kitchen portion(s) of the service and participated in the management and confirm the resident's documentation. Please note there may be an additional personal documentation from me. [facility] 11-13-2024 Note Patient ID: Breann Starks is a 78 y.o. female. Large Joint on 11/13/2024 7:17 PM Indications: pain and diagnostic evaluation Details: 22 G needle, anterior approach Outcome: tolerated well, no immediate complications The area on the anterior aspect of the left shoulder was prepped with a Betadine swab and marked. A small area of skin was anesthetized using a TB syringe and 1% lidocaine. Using a 22-gauge spinal needle we attempted to aspirate the shoulder joint based on anatomic landmarks. About 1 cc of fluid was obtained it was mostly bloody. This was sent for culture. The aspiration site was wiped clean with an alcohol swab and dressed with a Band-Aid. Procedure, treatment alternatives, risks and benefits explained, specific risks discussed. Consent was given by the patient. Immediately prior to procedure a time out was called to verify the correct patient, procedure, equipment, administrative support assistant and site/side marked as required. [facility] 11-10-2024 Telephone encounter Note I think it is the op note left shoulder on 01/07/2022 ( Dr. Babb [facility]) thanks [employer] Work Phone: 11-10-2024 Miscellaneous Notes I think it is the [facility] Patient called in about seeing and the referral to . Patient needs us to send the op report for LT shoulder to because 's office cannot.. 's fax number is [phone]. Is this ok? documented in this encounter [facility] 11-09-2024 Telephone encounter Note Patient called in about seeing and the referral to . Patient needs us to send the op report for LT shoulder to because 's office cannot.. 's fax number is [phone]. Is this ok? [facility] 11-07-2024 History of Present illness Narrative Images from the original note were not included. HISTORY OF PRESENT ILLNESS: EST PT Breann Starks is an 78 y.o. @ female. (EST PT) - RECHECK (L) SHOULDER ; S/P LABS (CBC W/ DIFF, CRP, SED RATE) S/P (L) REVERSE TSR 12/29/21 - DR AMIN XRAYS, (L) SHOULDER & C-SPINE 04/16/24 IN EPIC ATTEMPTED MRI @ [facility] [place] - UNABLE TO OBTAIN IMAGES D/T PACEMAKER PLACEMENT BONE SCAN 05/02/24 @ [facility] [place] LABS 10/24/24 @ [facility] [place] (CBC W/DIFF, CRP, SED RATE) LABS 05/09/24 @ [facility] (CBC / SED RATE / CRP) NO MDP / PREDNISONE NO RECENT PT PAIN MGMT @[facility] (LBP) (NECK PAIN 08/2024) NO CHANGE SINCE LAST VISIT. CONTINUES HAVING PAIN ANTERIOR SHOULDER. +HYDROCODONE AND BACLOFEN. +ASPERCREME. INTERMITTENT N/T IN FINGERS. +SWELLING. NOTES WARMTH. ANTERIOR REDNESS. LIMITED ROM. DOES NOT WAKE AT HS. TAKES ELIQUIS ; H/O A FIB ; H/O PACEMAKER H/O SYMPTOMS : SYMPTOMS FOR ~2 MONTHS ; SYMPTOMS BEGAN 02/16/24 - STATES SHE HAS PAIN AFTER USING HER (L) ARM TO USE A BACK SUMMER NANNY ON HER BACK ALLERGIES: Allergies Allergen Reactions Nsaids Other Reaction(s): HEART ISSUES Digoxin Rash Wound Dressing Adhesive Rash HOME MEDICATIONS: Current Outpatient Medications Medication Instructions acetaminophen (TYLENOL) 1,000 mg, Every 6 hours PRN apixaban (ELIQUIS) 5 mg, Oral, 2 times daily baclofen (LIORESAL) 10 mg, 3 times daily cholecalciferol (NATURAL VITAMIN D-3) 5,000 Units, Oral, Daily flecainide (TAMBOCOR) 100 mg, Every 12 hours HYDROcodone-acetaminophen (Horsham) 5-325 MG tablet 1 tablet, 3 times daily hydrocortisone (West-Andres) 0.2 % cream Topical, 2 times daily ipratropium-albuterol (Duo-Neb) 0.5-2.5 mg/3 mL nebulizer solution 3 mL, 4 times daily RT Multiple Vitamins-Minerals (CENTRUM SILVER 50+WOMEN PO) 1 tablet, Daily omeprazole (PRILOSEC) 40 mg, Oral, Daily spironolactone (ALDACTONE) 50 mg, Every morning verapamil ER (VERELAN) 360 mg, Daily RT PHYSICAL EXAM: Shoulder Musculoskeletal Exam Inspection Left Ecchymosis: none Peripheral edema: mild Atrophy: none Masses: none Prior incision: deltopectoral Prior incision comment: anterior Incision: well-healed Palpation Left Crepitus: no crepitus Increased warmth: mildly increased Tenderness: present Anterior shoulder: moderate Posterior shoulder: moderate Greater tuberosity: moderate Bicipital groove: none Proximal biceps: moderate Distal biceps: none Lateral arm: moderate Elbow: none Palpation additional comments: Neg Spurlings Rn Team Leader strength symmetric. Wrist flex/ ext. Symmetric 5/5 Range of Motion Left Active ROM: abnormal and pain. Passive ROM: abnormal and pain. Active forward elevation: 20. Passive forward elevation: 90. Shoulder active abduction: 20. Passive abduction: 60. Active external rotation in abduction: 40. Passive external rotation in abduction: 60. Internal rotation: side (hip). Range of motion additional comments: + pain [...] to calculate BMI. Tobacco Use: Medium Risk (10/04/2024) Patient History Smoking Tobacco Use: Former Smokeless Tobacco Use: Unknown Passive Exposure: Past Alcohol Use: Patient Declined (10/10/2024) AUDIT-C Frequency of Alcohol Consumption: Patient declined Average Number of Drinks: Patient declined Frequency of Binge Drinking: Patient declined IMAGING: Procedures No orders of the defined types were placed in this encounter. ASSESSMENT: No diagnosis found. PLAN: Increased CRP, increased sedimentation rate normal WBC. We have recommended a second opinion at [facility] and set her up with a referral to Dr. Holt, we have discussed restrictions and her home exercise program. We will see her back on a as necessary basis. Questions answered in laymen terms at the bedside. The diagnosis, home exercise plan and any ongoing restrictions/ recommendations reviewed. If unable to be reached in office, I recommend evaluation at nearest Emergency Room if any symptoms worsened or new symptoms develop for requiring urgent evaluation. documented in this encounter [facility] 10-24-2024 History of Present illness Narrative Images from the original note were not included. HISTORY OF PRESENT ILLNESS: EST PT Breann Starks is an 78 y.o. @ female. (EST PT) (DR. HANSEN REFERRAL) - RECHECK (L) SHOULDER S/P (L) REVERSE TSR 12/29/21 - DR AMIN XRAYS, (L) SHOULDER & C-SPINE 04/16/24 IN EPIC ATTEMPTED MRI @ [facility] [place] - UNABLE TO OBTAIN IMAGES D/T PACEMAKER PLACEMENT BONE SCAN 05/02/24 @ [facility] [place] LABS 05/09/24 @ [facility] (CBC / SED RATE / CRP) NO MDP / PREDNISONE NO RECENT PT PAIN MGMT @[facility] (LBP) (NECK PAIN 08/2024) CONTINUES TO HAVE CONSTANT DISCOMFORT IN BICEP (SINCE FEBRUARY 2024) - SOME POSTERIOR DISCOMFORT ; WORSE WITH ACTIVITY / MOVEMENT. NOTES PAIN IS REDUCED WITH SUPPORT UNDER ELBOW TO SUPPORT SHOULDER. NOTES ANTERIOR REDNESS. MINIMAL SWELLING. LIMITED ROM D/T PAIN. INTERMITTENT N/T THAT RADIATES TO FINGERS. TROUBLE FALLING ASLEEP D/T PAIN. DENIES WAKING HS. NOTES WEAKNESS - UNABLE TO RAISE HER ARM BY HERSELF. TAKING NORCO TID / MUSCLE RELAXER - SOME RELIEF ; ALSO USING ICE - SOME RELIEF. DENIES HEP. NOTED REDNESS LIGHTENED IN COLOR AFTER GETTING MAMMOGRAM HAVING HER ARM ELEVATED FOR 1 DAY POST-MAMMOGRAM. TAKES ELIQUIS ; H/O A FIB ; H/O PACEMAKER H/O SYMPTOMS : SYMPTOMS FOR ~2 MONTHS ; SYMPTOMS BEGAN 02/16/24 - STATES SHE HAS PAIN AFTER USING HER (L) ARM TO USE A BACK SUMMER NANNY ON HER BACK ALLERGIES: Allergies Allergen Reactions Nsaids Other Reaction(s): HEART ISSUES Digoxin Rash Wound Dressing Adhesive Rash HOME MEDICATIONS: Current Outpatient Medications Medication Instructions acetaminophen (TYLENOL) 1,000 mg, Every 6 hours PRN apixaban (ELIQUIS) 5 mg, Oral, 2 times daily baclofen (LIORESAL) 10 mg, 3 times daily cefdinir (OMNICEF) 300 mg, Oral, 2 times daily cholecalciferol (NATURAL VITAMIN D-3) 5,000 Units, Oral, Daily flecainide (TAMBOCOR) 100 mg, Every 12 hours HYDROcodone-acetaminophen ([place]ham) 5-325 MG tablet 1 tablet, 3 times daily hydrocortisone (West-Andres) 0.2 % cream Topical, 2 times daily ipratropium-albuterol (Duo-Neb) 0.5-2.5 mg/3 mL nebulizer solution 3 mL, 4 times daily RT Multiple Vitamins-Minerals (CENTRUM SILVER 50+WOMEN PO) 1 tablet, Daily omeprazole (PRILOSEC) 40 mg, Oral, Daily spironolactone (ALDACTONE) 50 mg, Every morning verapamil ER (VERELAN) 360 mg, Daily RT PHYSICAL EXAM: Shoulder Musculoskeletal Exam Inspection Left Ecchymosis: none Peripheral edema: none Atrophy: none Masses: none Prior incision comment: anterior Incision: well-healed Palpation Left Crepitus: no crepitus Increased warmth: none Tenderness: present Anterior shoulder: moderate Posterior shoulder: moderate Greater tuberosity: moderate Bicipital groove: none Proximal biceps: moderate Distal biceps: none Lateral arm: moderate Elbow: none Palpation additional comments: Neg Spurlings Rn Team Leader strength symmetric. Wrist flex/ ext. Symmetric 5/5 Range of Motion Left Active ROM: abnormal and pain. Passive ROM: abnormal and pain. Active forward elevation: 40. Passive forward elevation: 90. Shoulder active abduction: 20. Passive abduction: 60. Active external rotation in abduction: 40. Passive [...] to calculate BMI. Tobacco Use: Medium Risk (10/04/2024) Patient History Smoking Tobacco Use: Former Smokeless Tobacco Use: Unknown Passive Exposure: Past Alcohol Use: Patient Declined (10/10/2024) AUDIT-C Frequency of Alcohol Consumption: Patient declined Average Number of Drinks: Patient declined Frequency of Binge Drinking: Patient declined IMAGING: Procedures Orders Placed This Encounter Procedures CBC and differential Order Specific Question: Print requisition? Answer: Yes C-reactive protein Order Specific Question: Print requisition? Answer: Yes Sedimentation rate, automated Order Specific Question: Print requisition? Answer: Yes DIFF AND CBC ASSESSMENT: ICD-10-CM 1. Injury of left shoulder and upper arm, sequela S49.92XS Ambulatory referral to Orthopaedic Surgery DIFF AND CBC 2. Left shoulder pain, unspecified chronicity M25.512 Ambulatory referral to Orthopaedic Surgery 3. 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, initial encounter ([facility]) T84.50XA CBC and differential C-reactive protein Sedimentation rate, automated DIFF AND CBC CANCELED: Sedimentation rate, automated PLAN: She has some redness and swelling to the anterior aspect of her left shoulder. She 20 degrees of active lateral raise and 40 degrees of forward flexion. We recommended a repeat CRP, sedimentation rate, and CBC with differential to rule out prosthetic infection. We'll see her back in 2 weeks. Questions answered in laymen terms at the bedside. The diagnosis, home exercise plan and any ongoing restrictions/ recommendations reviewed. If unable to be reached in office, I recommend evaluation at nearest Emergency Room if any symptoms worsened or new symptoms develop for requiring urgent evaluation. documented in this encounter [facility] 10-17-2024 History of Present illness Narrative Images [...] by mouth every 12 (twelve) hours HYDROcodone-acetaminophen (Horsham) 5-325 MG tablet Take 1 tablet by [...] Do you have a medical power of civil rights attorney?: No Objective : BP 138/76 Pulse [...] a living will and durable power of civil rights attorney for healthcare. We discussed telling kitchen [...] October 17, 2024 documented in this encounter [facility] 10-16-2024 Radiology Diagnostic study note [facility] Main [place] [address] [place] [address] Ultrasound Report Signed Patient: Breann Starks MR#: [id number] : 1945 Acct:[id number] Age/Sex: 78 / F ADM Date: Loc: [facility] Room: Type: [facility] Attending Dr: Dmitriy Duque DO Ordering Provider: Dmitiry Duque DO Date of Service: 10/16/24 US/US axilla: R92.8 ([id number]) MM/MM diagnostic mammo BI w/CAD: ENLARGED LT [...] Impression dictated by: Francisco J Benton Jr., D.OMeena10/16/2024 2:20 PM Dictation Location: [facility] Tech: Ghazal Barber Transcribed By: STAR 10/16/24 1420 Dictated By: Francisco J Benton Jr, DO 10/16/24 1343 Signed By: 10/16/24 1420 [facility] 10-04-2024 History of Present illness Narrative Images from the original note were not included. Breann Starks 1945 Breann Starks is a 78 y.o. female presents with chief complaint of Consult (Lt axillary lymphadenopathy) HPI: HPI patient was vigorously scratching her back with a back knockdown worker on February 15 and the next day [...] furosemide (LASIX) 40 mg, Oral, Daily HYDROcodone-acetaminophen (Horsham) 5-325 MG tablet 1 tablet, 3 times [...] Former Physical Exam Exam conducted with a arc cutter present. Constitutional: Appearance: Normal appearance. HENT: Head: [...] doctors on that documented in this encounter [facility] 09-24-2024 Note [place] [facility] - [facility] Subjective Breann Starks is a [...] Chronic obstructive lung disease (CMS/HCC) Atherosclerosis of [place] coronary artery of [place] heart without angina pectoris Diaphragmatic hernia Edema [...] Positive fecal occult blood test Sigmoid diverticulosis [facility] 09/24/2024 07/18/2024 The patient is with history [...] Types: Cigarettes Start date: 1956 Quit date: 2000 Years since quittin.0 Smokeless tobacco: Never Substance [...] m??? Physical e (more content not included)... [facility] 09-19-2024 History of Present illness Narrative Images [...] Reported on 09/18/2024) 90 tablet 0 HYDROcodone-acetaminophen (Horsham) 5-325 MG tablet Take 1 tablet by [...] on file. = documented in this encounter [facility] 09-19-2024 Instructions Luisana Cardozo NP - 09/19/2024 3:00 PM EST Macrobid ordered. Urine sent for culture. documented in this encounter [facility] 09-18-2024 History of Present illness Narrative Images [...] , wrist extensors , wrist flexor , bacteriology technician strength 5/5. Left upper extremity strength is [...] reflex 2+ . Neal's sign negative. Coordination: [id number] testing and rapid alternating movements are normal [...] and return instructions documented in this encounter [facility] 08-24-2024 Evaluation note Diagnosis Onset Date Resolution Iron deficiency anemia acute De cember 2023 12:55pm [facility] Work Phone: 1(247) 291-221812-13-2024 Evaluation note* Diagnosis Onset Date Resolution Status Admit Date Iron deficiency anemia acute De cember 2023 12:55pm Axillary lymphadenopathy acute September 25, 2024 11:08am Iron deficiency anemia acute [facility] 11:08am [facility] Work Phone: 1(449) 592-849612-05-2024 History of Present illness Narrative* Renny Hansen [...] MOUTH EVERY DAY 90 tablet 0 HYDROcodone-acetaminophen (Horsham) 5-325 MG tablet Take 1 tablet by [...] for As Previously Scheduled. documented in [facility] HospitalOepwfyxiwb05-05-1305 History of Present illness Narrative* Renny Hansen [...] MOUTH EVERY DAY 90 tablet 0 HYDROcodone-acetaminophen (Horsham) 5-325 MG tablet Take 1 tablet by [...] emphysema (CMS/HCC) COPD (chronic obstructive pulmonary disease) ([facility]) COPD exacerbation ([facility]) 10/17/2023 Coronary artery disease ([facility]/HCC) Diastolic dysfunction Essential hypertension (CMS/HCC) History of tobacco abuse Nonalcoholic steatohepatitis (LOJA) Obstructive sleep apnea Osteoarthritis Paroxysmal atrial fibrillation (CMS/HCC) Peptic ulcer disease Secondary pulmonary arterial hypertension (CMS/HCC) Sick sinus syndrome ([facility]/HCC) Spinal stenosis, lumbar region with neurogenic claudication SVT (supraventricular tachycardia) ([facility]/HCC) URTI (acute upper respiratory infection) Vertigo Vitamin [...] Greater than 25 minutes was spent in [id number] consultation and coordination of care. Persistent atrial fibrillation (HCC) (CMS/HCC) Nausea - FL upper GI double contrast w KUB; Future Follow up in about 2 weeks (around 08/16/2024) for Test/Lab Review. documented in this [facility]11-13-2024 Telephone encounter Note* Telephone Encounter - DANIELLE Florence - 07/25/2024 1:07 PM EST My chart message. [facility] [id number] Miscellaneous Notes* Telephone Encounter - DANIELLE Florence - 07/25/2024 1:07 PM EST My chart message. documented in this [facility]11-12-2024 History of Present illness Narrative* DANIELLE Florence [...] arm. Pt does see pain magment in [place]. Sees their office next week on the [...] MOUTH EVERY DAY 90 tablet 0 HYDROcodone-acetaminophen (Horsham) 5-325 MG tablet Take 1 tablet by [...] Neck pain on left side Can continue Horsham as needed for pain. Radicular pain in [...] hypertension (CMS/HCC) The patient is seeing a pediatric medical assistant for this condition, treatment is deferred to that specialist. Correspondence from that specialist and any available testing were reviewed during today's visit. She will be having Cardiac Catheterization for further evaluation of the pulmonary hypertension. Other thrombophilia Will recheck with updated labs. Follow up in about 4 weeks (around 08/21/2024) for Next scheduled follow-up with Dr. Hansen. documented in [facility] encounter[facility] HospitalKsqigqhyow23-05-5493 Telephone encounter Note* Telephone Encounter - DANIELLE Florence - 07/24/2024 10:04 AM EST Will discuss with pt at today's OV [facility] [id number] Miscellaneous Notes* Telephone Encounter - DANIELLE Florence - 07/24/2024 10:04 AM EST Will discuss with pt at today's OV * Telephone Encounter - Renny Hansen MD - 07/05/2024 2:55 PM EDT Call after mammogram with plan. See last OV. documented in this encounterRay County Memorial [id number] NoteUT Cardiology - [facility] Subjective Breann Starks is a 78 y.o. year old female patient being seen for Atrial Fibrillation, PACEMAKER, Coronary Artery Disease, Hypertension, Sinus node dysfunction (HAS BOSTON PACER), Obesity, and Edema Patient Active Problem List Diagnosis Disorder of bursae of shoulder region Chronic obstructive lung disease (CMS/HCC) Atherosclerosis of [place] coronary artery of [place] heart without angina pectoris Diaphragmatic hernia Edema [...] rhythm, normal EKG Ech (more content not included)...[facility] Telephone encounter Note* Telephone Encounter - Renny Hansen MD - 07/05/2024 2:55 PM EDT Call after mammogram with plan. See last OV. [facility] [id number] History of Present illness Narrative* Renny Hansen MD - 07/05/2024 9:00 AM EDT Images from the original note were not included. HPI Establish Care Additional comments: Previous pcp Dr Cira Buckleys cardiology-dr juan Holly-- orthopedic Last edited by Carlene Yan LPN on 07/05/2024 8:59 AM. Subjective Patient ID: Breann Starks is a 78 y.o. female who presents for Establish Care (Previous pcp Dr Denis/Marcios cardiology-dr martinez/Dr. Holly-- orthopedic) and Hypertension. Hypertension [...] MOUTH EVERY DAY 90 tablet 0 HYDROcodone-acetaminophen ([place]) 5-325 MG tablet Take 1 tablet by [...] Greater than 45 minutes was spent in lxib-bv-oalv consultation and coordination of care. Follow up in about 4 months (around 11/05/2024) for Call after mammogram. documented in this encounterRay County Memorial HospitalBilbhbguwo83-78-2578 History of Present illness Narrative* Monster Calvillo NP - 06/02/2024 10:19 AM EDTAssociated Problem(s): Acute on chronic diastolic (congestive) heart failure (CMS/HCC) Discussed with Dr. Hennessy's office pt symptoms and clinical condition today in office. Sent pt to ER for further workup and tx of suspected CHF exacerbation. * Monster Calvillo NP - 05/31/2024 1:30 PM EDT Images [...] of suspected CHF exacerbation. documented in this encounterRay County Memorial HospitalMbotfkairi77-12-6044 NoteHNO ID: [id number] Author: BOO BUCHANAN PA-C Service: ? Author Type: Physician Lumber Stacker Driver Type: Progress Notes Filed: 05/22/2024 13:53 Note [...] She was recommended for second opinion at [facility]. She also had a CRP and ESR [...] No date: COPD (chronic obstructive pulmonary disease) ([facility]) SOCIAL HISTORY: Tobacco Use: Never EXAMINATION: GENERAL: [...] of the hardware. Bone scan performed at [facility] to be uploaded to the system. Boo Buchanan (more content not included)...[facility] 05-22-2024 History of Present illness Narrative* [...] She was recommended for second opinion at [facility]. She also had a CRP and ESR [...] No date: COPD (chronic obstructive pulmonary disease) ([facility]) SOCIAL HISTORY: Tobacco Use: Never EXAMINATION: GENERAL: [...] of the hardware. Bone scan performed at [facility] to be uploaded to the system. Boo Buchanan PA-C documented in this encounter[facility] [place] NoteHNO ID: [id number] Author: JYOTHI CRUZ RT(R) Service: ? Author [...] PATIENT PRESENTS WITH AN IMPLANTABLE OR ATTACHED TIME ANALYSIS CLERK: No RADIOLOGY DEPARTMENT: General X-ray: Exam(s) Completed: Upper Extremity X-Ray(s): Shoulder, AP / TRUE AP / AXILLARY / SUPRA OUTLET left PERIPHERAL IV DATA: Not applicable SIGNED BY: RT Chaparrita(R) May 22, 2024 1:25 [facility]09-10-2024 History of Present illness Narrative* Jyothi [...] PATIENT PRESENTS WITH AN IMPLANTABLE OR ATTACHED TIME ANALYSIS CLERK: No RADIOLOGY DEPARTMENT: General X-ray: Exam(s) Completed: Upper Extremity X- Ray(s): Shoulder, AP / TRUE AP / AXILLARY / SUPRA OUTLET left PERIPHERAL IV DATA: Not applicable SIGNED BY: RT Chaparrita(R) May 22, 2024 1:25 PM documented in [facility] encounter[facility] [place] History of Present illness Narrative* Jr. Sakina Cardenas, DO - 05/09/2024 10:00 AM EDT Images from the original note were not included. HISTORY OF PRESENT ILLNESS: EST PT Breann Starks is an 78 y.o. @ female. (EST PT ; LAST APPT W/ QUINN) RECHECK (L) SHOULDER PAIN ; HERE FOR BONE SCAN RESULTS 05/02/24 @ [facility] (VERBAL GIVEN PER QUINN - REFERRAL SENT TO DR AMIN) & LABS 05/09/24 @ [facility] (CBC / SED RATE / CRP) S/P (L) REVERSE TSR 12/29/21 - DR AMIN XRAYS, (L) SHOULDER & C-SPINE 04/16/24 IN EPIC ATTEMPTED MRI @ [facility] [place] - UNABLE TO OBTAIN IMAGES D/T PACEMAKER PLACEMENT BONE SCAN 05/02/24 @ [facility] [place] LABS 05/09/24 @ [facility] (CBC / SED RATE / CRP) NO [...] USING HER(L) ARM TO USE A BACK SUMMER NANNY ON HER BACK ALLERGIES: Allergies Allergen Reactions Nsaids Other Reaction(s): HEART ISSUES Digoxin Rash Wound Dressing Adhesive Rash HOME MEDICATIONS: Current Outpatient Medications Medication Instructions apixaban (ELIQUIS) 5 mg, Oral, 2 times daily ferrous sulfate 325 mg, Oral, Daily with breakfast, Do not crush, chew, or split. flecainide (TAMBOCOR) 100 mg, Oral, Every 12 hours furosemide (LASIX) 40 mg, Oral, Daily HYDROcodone-acetaminophen ([place]) 5-325 MG tablet 1 tablet, Oral, 3 [...] Elbow: none Palpation additional comments: Neg Spurlings Rn Team Leader strength symmetric. Wrist flex/ ext. Symmetric 5/5 [...] basis. Sakina Cardenas D.O. documented in this encounterRay County Memorial HospitalHxppokiifl61-23-0500 NoteChief Complaint consultation for anemia HPI Staff 78 year old female presents on consultation from [facility] for anemia. Labs completed yesterday with [...] PSVT, spinal stenosis, cervical radiculopathy; referred from [facility] for anemia, low iron, and positive [...] PSVT (paroxysmal supraventricular t (more content not included)...[facility] HospitalComment on above:Result Comment: Electronically Signed By: CATHERINE CUBA, Ortega Quinonez\Date and Time Signed: 03/02/24 13:01 [id number] Note Cardiovascular Medicine [facility] SUBJECTIVE Chief Complaint Patient presents with Atrial Fibrillation Breann Starks is a 78 y.o. female here for follow-up. HPI PMHx: A-fib, atrial tachycardia s/p ablation 2005, sick sinus syndrome s/p PPM 10/2020 dual-chamber [employer], COPD, mild CAD s/p cardiac cath 2010, SHAWANDA noncompliant with mask, and obesity. She has been doing well since last seen. No significant changes. Denies c/o CP, dyspnea, orthopnea, PND, LE edema, dizziness/LH, palpitations, syncope. Patient Active Problem List Diagnosis Disorder of bursae of shoulder region Chronic obstructive lung disease (CMS/HCC) Atherosclerosis of [place] coronary artery of [place] heart without angina pectoris Diaphragmatic hernia Edema [...] 10*3/uL Final Monocytes Absolu (more content not included)...[facility]05-07-2024 NotePatient here for 6 mo follow up persistent afib, CAD, hypertension, and sinus node dysfunction. Her device was interrogated in the office last month. Denies chest pain, SOB, lightheadedness/syncope, and bleeding on Eliquis. Says she feels great. Review of Systems Musculoskeletal: Positive for back pain. Neurological: Positive for numbness. All other systems reviewed and are negative.[facility] 10-07-2021 Evaluation note* Encounter Date Diagnosis Assessment Notes Treatment Notes Treatment Clinical Notes Sep, LOJA (nonalcoholic steatohepatitis) (ICD-10 - K75.81) OBTAIN FIBROSURE RESULTS FROM [facility] REASSURANCE ON RESULTS PT ENCOURAGED WEIGHT LOSS RTO ONE YEAR WITH LABS ANNUALLY Sep, Unspecified cirrhosis of liver (ICD-10 - K74.60) [facility] 12-15-2021 Evaluation note* Encounter Date Diagnosis Assessment Notes Treatment Notes Treatment Clinical Notes Aug, Nonalcoholic steatohepatitis (LOJA) (ICD-10 - K75.81) RTO 6-8 WEEKS Aug, Unspecified cirrhosi s of liver (ICD-10 - K74.60) Aug, Morbid obesity (ICD- 10 - E66.01) [facility] Evaluation + Plan note No data available for this section [facility] Evaluation noteNo assessment information available [facility] Work Phone: Evaluation note* Diagnosis 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)- Primary Left shoulder pain, unspecified chronicity Left shoulder pain, unspecified chronicity documented in this encounter [facility] Diagnosis Left shoulder pain, unspecified chronicity documented in this encounter [facility]* Diagnosis Acute on chronic diastolic (congestive) heart failure (CMS/HCC) documented in this encounter [facility] HospitalEvaluation note* Diagnosis Essential hypertension (CMS/HCC)- Primary Unspecified [...] syndrome, unspecified type documented in this encounter [facility] HealthcareEvaluation note* Diagnosis Essential hypertension [...] Unspecified essential hypertension documented in this encounter [facility] HealthcareEvaluation note* Diagnosis Essential hypertension [...] Other thrombophilia (CMS/HCC) documented in this encounter [facility] HealthcareEvaluation note* Diagnosis Essential hypertension (CMS/HCC)- Primary [...] blood loss (chronic) documented in this encounter [facility] HealthcareEvaluation note* Diagnosis Essential hypertension (CMS/HCC)- Primary [...] Nausea Nausea alone documented in this encounter [facility] HealthcareEvaluation note* Diagnosis Essential hypertension [...] Nausea Nausea alone documented in this encounter [facility] HealthcareEvaluation note* Diagnosis Acute pain of left shoulder- Primary History of reverse total replacement of left shoulder joint documented in this encounter [facility] HealthcareEvaluation note* Diagnosis Chronic left shoulder pain Pain in joint, shoulder region documented in this encounter [facility] HealthcareEvaluation note* Diagnosis Acute on chronic diastolic (congestive) heart failure (CMS/HCC)- Primary documented in this encounter [facility] HealthcareEvaluation note* Diagnosis Essential hypertension [...] (CMS/HCC) Atrial fibrillation documented in this encounter [facility] HealthcareEvaluation note* Diagnosis Essential hypertension [...] tissues of limb documented in this encounter [facility] HealthcareEvaluation note* Diagnosis Essential hypertension [...] unspecified single disease documented in this encounter [facility] HealthcareEvaluation note* Diagnosis Essential hypertension [...] of lymph nodes documented in this encounter [facility] HealthcareEvaluation note* Diagnosis Essential hypertension [...] left upper extremity documented in this encounter [facility] HealthcareEvaluation note* Diagnosis Essential hypertension [...] chronic diastolic (congestive) heart failure (CMS/HCC)- Primary Injury of left shoulder and upper arm, sequela Left shoulder pain, unspecified chronicity 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, initial encounter (CMS/HCC) documented in this encounter [facility] HealthcareEvaluation note* Diagnosis Essential hypertension (CMS/HCC)- Primary [...] chronic diastolic (congestive) heart failure (CMS/HCC)- Primary 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, initial encounter (CMS/HCC) History of reverse total replacement of left shoulder joint documented in this encounter [facility] HealthcareHistory general Narrative - Reported* Type [...] Surgical History pacemaker Hospitalization History see above [facility] Discharge instructions No data available for this section [facility] Discharge instructionsAmbulatory Orders* Referral to General Surgery Location: None [facility] Work Phone: Progress note No data available for this section [facility] Reason for referral (narrative)* Diagnostic Procedure Only (Routine) - Closed Specialty Diagnoses / Procedures Referred By Contac t Referred To Contact XR IMAGING Diagnoses Left shoulder pain, unspecified chronicity Procedures XR SHOULDER ORTHO 4V AP/TRUE AP/LAT/OUTLET LEFT RADEX SHOULDER COMPLETE MINIMUM 2 VIEWS Boo Buchanan PA-C [address] [place] [address] [place] [address] Referral ID Status Reason Start Date Expiration Date V isits Requested Visits Authorized [id number] Closed Auto-Generate d Referral 05/08/2024 06/07/2025 1 1 [facility] for visit Narrative* Diagnostic Procedure Only (Routine) - Closed Specialty Diagnoses / Procedures Referred By Contac t Referred To Contact XR IMAGING Diagnoses Left shoulder pain, unspecified chronicity Procedures XR SHOULDER ORTHO 4V AP/TRUE AP/LAT/OUTLET LEFT RADEX SHOULDER COMPLETE MINIMUM 2 VIEWS Boo Buchanan PA-C [address] [place] [address] [place] [address] Referral ID Status Reason Start Date Expiration Date V isits Requested Visits Authorized [id number] Closed Auto-Generate d Referral 05/08/2024 06/07/2025 1 1 [facility] for visit Narrative* Consultation (Routine) - Closed Specialty Diagnoses / Procedures Referred By Contac t Referred To Contact Neurology Diagnoses Neck pain on left side Procedures IA OFFICE/OUTPATIENT NEW HIGH MDM 60 MINUTES Renny Hansen MD [address] [address] Phone: tel: fax: Paula Lord MD [address] [place] [address] Phone: tel: fax: Referral ID Status Reason Start Date Expiration Date V isits Requested Visits Authorized [id number] Closed Specialty Services Required 09/13/2024 03/12/2025 1 1 [facility] Summary Purpose Family History No Family History [...] anemia August 24 12:55pm Axillary lymphadenopathy September 25 11:08am Iron deficiency anemia September 25 11:08am Chief Complaint Admit Date NEW- Iron deficiency August 24, 2024 12:55pm m25.512 August 24, 2024 2:17pm New DX -Axillary Lymphadenopathy September 25, 2024 11:08am Iron Deficiency October 02, 2024 1 1:30am r92.8 October 16, 2024 1 2:57pm T84.50XA October 24, 2024 3:27pm Chief Complaint Admit Date NEW- Iron deficiency August 24, 2024 12:55pm m25.512 August 24, 2024 2:17pm New DX -Axillary Lymphadenopathy September 25, 2024 11:08am r92.8 October 16, 2024 1 2:57pm T84.50XA October 24, 2024 3:27pm Follow Up 1 Month October 29, 2024 2:41pm Iron Deficiency October 29, 2024 3:04pm Reason for Referral Specialty Diagnoses / Procedures Referred By Contac t Referred To Contact Diagnoses Chronic left shoulder pain Monster Calvillo, ELBERT [address] [facility] [place] [address] Referral ID Status Reason Start Date Expiration Date V isits Requested Visits Authorized [id number] Pending Review 05/16/2024 11/12/2024 1 1 Specialty Diagnoses / Procedures Referred By Millie t Referred To Contact CT IMAGING Diagnoses 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) Procedures CT SHOULDER WO IVCON LEFT CT UPPER EXTREMITY W/O CONTRAST MATERIAL Boo Buchanan PA-C [address] [place] [address] [place] [address] Referral ID Status Reason Start Date Expiration Date Visits Requested Visits Authorized [id number] New Request Auto-Generat ed Referral 05/22/2024 06/21/2025 1 1 Specialty Diagnoses / Procedures Referred By Millie t Referred To Contact XR IMAGING Diagnoses Left shoulder pain, unspecified chronicity Procedures XR SHOULDER ORTHO 4V AP/TRUE AP/LAT/OUTLET LEFT RADEX SHOULDER COMPLETE MINIMUM 2 VIEWS Boo Buchanan PA-C [address] [place] [address] [place] [address] Referral ID Status Reason Start Date Expiration Date V isits Requested Visits Authorized [id number] Closed Auto-Generate d Referral 05/08/2024 06/07/2025 1 1 Additional Source Comments INFORMATION SOURCE (unrecogn ized section and content) DATE CREATED AUTHOR 10/23/2021 [facility] DATE CREATED AUTHOR AUTHOR'S ORGANIZ ATION 01/22/2022 [facility] DATE CREATED AUTHOR AUTHOR'S ORGANIZ ATION 02/18/2023 [facility] DATE CREATED AUTHOR AUTHOR'S ORGANIZ ATION 03/11/2024 [facility] DATE CREATED AUTHOR AUTHOR'S ORGANIZ ATION 05/24/2024 [facility] DATE CREATED AUTHOR AUTHOR'S ORGANIZ ATION 10/30/2024 [facility] DATE CREATED AUTHOR AUTHOR'S ORGANIZ ATION 11/09/2024 [facility] EPIC DATE CREATED AUTHOR AUTHOR'S ORGANIZ ATION 2024 [facility] DATE CREATED AUTHOR AUTHOR'S ORGANIZ ATION 12/06/2024 [facility] REASON FOR VISIT (unrecogniz ed section and content) Reason Comments Pain Specialty Diagnoses / Procedures Referred By Contac t Referred To Contact Orthopaedic Surgery Diagnoses Injury of left shoulder and upper arm, sequela Left shoulder pain, unspecified chronicity Renny Hansen MD [address] [facility] [address] [place] [address] Phone: tel: fax: Jr. Sakina Cardenas, DO [address] [place] [address] Phone: tel: fax: Referral ID Status Reason Start Date Expiration Date V isits Requested Visits Authorized [id number] Closed Specialty Services Required 10/17/2024 04/15/2025 1 1 Reason Comments Radiology XR Reason Comments New Specialty Diagnoses / Procedures Referred By Contac t Referred To Contact Orthopedics / [facility] Diagnoses Acute pain of left shoulder History of reverse total replacement of left shoulder joint Procedures OFFICE/OUTPATIENT NEW HIGH MDM 60 MINUTES OFFICE/OUTPATIENT ESTABLISHED HIGH MDM 40 MIN AMB REFERRAL TO ORTHOPAEDIC SURGERY Pedro Pablo Cruz PA [address] [facility] [address] [place] [address] González Alvarado MD [address] [place] [address] Referral ID Status Reason Start Date Expiration Date V isits Requested Visits Authorized [id number] Authorized 05/08/2024 09/11/2024 99 99 Reason Comments Med Refill Reason Comments Establish Care Previous pcp Dr Nati Dalal cardiology-dr chakoDr. Holly-- orthopedic Hypertension Reason Comments Results EMG RESULTS post nasal drainage Reason Comments Nausea Reason Comments Nausea Results UGI results Reason Onset Date Comments Med Refill 05/16/2024 Reason Comments Follow-up Cough Reason Onset Date Comments Med Refill 09/14/2024 Reason Comments Consult Lt axillary lymphade nopathy Reason Comments Medicare Annual Wellness Visit Subsequen t Reason Comments Follow-up Reason Onset Date Comments OP Note 11/09/2024 Care Teams (unrecognized sec tion and content) [...] October 11, 2023 End: October 11, 2023 Lead 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 Specialty Start Date End Date Shaikh [...] May 02, 2024 End: May 02, 2024 Lead 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 Specialty Start Date End Date Luisana Johnson MD [address] [place] [address] PCP - General 01/05/06 Pedro Pablo Cruz MD [address] [place] [address] Referring Infectious Diseases 05/07/24 Lead 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 Specialty Start Date End Date Luisana Johnson MD [address] [place], [facility] PCP - General 01/05/06 Pedro Pablo Cruz MD [address] [place] [address] Referring Infectious Diseases 05/07/24 Lead 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 Specialty Start Date End Date Luisana Johnson MD [address] [place] [id number] PCP - General 01/05/06 Pedro Pablo Cruz MD [address] [place] [address] Referring Infectious Diseases 05/07/24 Lead 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 Specialty Start Date End Date Wesley Long MD [facility] [place] [address] PCP - General Family Medicine 05/17/24 Monster Calvillo, ELBERT [address] [place] [address] Nurse Practitioner Family Medicine 05/17/24 Lead 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 Specialty Start Date End Date Wesley Long MD [address] [place] [address] PCP - General Family Medicine 05/17/24 Monster Calvillo NP [address] [place] [address] Nurse Practitioner Family Medicine 05/17/24 Lead 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 Specialty Start Date End Date Wesley Long MD [address] [place] [address] PCP - General Family Medicine 05/17/24 Monster Calvillo NP [address] [place] [address] Nurse Practitioner Family Medicine 05/17/24 Lead 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 Specialty Start Date End Date Wesley Long MD [address] [place] [address] PCP - General Family Medicine 05/17/24 Monster Calvillo NP [address] [place] [address] Nurse Practitioner Family Medicine 05/17/24 Lead 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 Specialty Start Date End Date Wesley Long MD [address] [place] [address] PCP - General Family Medicine 05/17/24 Monster Calvillo NP [address] [place] [address] Nurse Practitioner Family Medicine 05/17/24 Lead 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 Specialty Start Date End Date Wesley Long MD [address] [place] [address] PCP - General Family Medicine 05/17/24 Monster Calvillo NP [address] [place] [address] Nurse Practitioner Family Medicine 05/17/24 Lead 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 Specialty Start Date End Date Wesley Long MD [address] [place] [address] PCP - General Family Medicine 05/17/24 Monster Calvillo NP [address] [place] [address] Nurse Practitioner Family Medicine 05/17/24 Lead 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 Specialty Start Date End Date Wesley Long MD [address] [place] [address] PCP - General Family Medicine 05/17/24 Monster Calvillo NP [address] [place] [address] Nurse Practitioner Family Medicine 05/17/24 Lead 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 Specialty Start Date End Date Wesley Long MD [address] [place] [address] PCP - General Family Medicine 05/17/24 Monster Calvillo NP [address] [place] [address] Nurse Practitioner Family Medicine 05/17/24 Lead 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 Specialty Start Date End Date Wesley Long MD [address] [place] [address] PCP - General Family Medicine 05/17/24 Monster Calvillo NP [address] [place] [address] Nurse Practitioner Family Medicine 05/17/24 Lead 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 Specialty Start Date End Date Wesley oLng MD [address] [place] [address] PCP - General Family Medicine 05/17/24 Monster Calvillo NP [address] [place] [address] Nurse Practitioner Family Medicine 05/17/24 Lead 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 Specialty Start Date End Date Wesley Long MD [address] [place] [address] PCP - General Family Medicine 05/17/24 Monster Calvillo NP [address] [place] [address] Nurse Practitioner Family Medicine 05/17/24 Lead 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 Specialty Start Date End Date Wesley Long MD [address] [place] [address] PCP - General Family Medicine 05/17/24 Monster Calvillo NP [address] [place] [address] Nurse Practitioner Family Medicine 05/17/24 Lead 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 Specialty Start Date End Date Wesley Long MD [address] [place] [address] PCP - General Family Medicine 05/17/24 Monster Calvillo NP [address] [place] [address] Nurse Practitioner Family Medicine 05/17/24 Lead 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 Specialty Start Date End Date Shaikh Denis MD [address] [place] [address] PCP - General Internal Medicine 10/17/23 Lead 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 Specialty Start Date End Date Shaikh Denis MD [address] [place] [address] PCP - General Internal Medicine 10/17/23 Lead 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 Specialty Start Date End Date Shaikh Denis MD [address] [place] [address] PCP - General Internal Medicine 10/17/23 Lead 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 Specialty Start Date End Date Wesley Long MD [address] [place] [address] PCP - General Family Medicine 05/17/24 Monster Calvillo NP [address] [place] [address] Nurse Practitioner Family Medicine 05/17/24 Lead 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 Specialty Start Date End Date Wesley Long MD [address] [place] [id number] PCP - General Family Medicine 05/17/24 Monster Calvillo NP [address] [place] [address] Nurse Practitioner Family Medicine 05/17/24 Lead 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 Specialty Start Date End Date Wesley Long MD [address] [place] [phone] PCP - General Family Medicine 05/17/24 Monster Calvillo NP [address] [place] [address] Nurse Practitioner Family Medicine 05/17/24 Lead 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 Specialty Start Date End Date Wesley Long MD [address] [place] [address] PCP - General Family Medicine 05/17/24 Monster Calvillo NP [address] [place] [address] Nurse Practitioner Family Medicine 05/17/24 Lead 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 Specialty Start Date End Date Wesley Long MD [address] [place] [address] PCP - General Family Medicine 05/17/24 Monster Calvillo NP [address] [place] [id number] Nurse Practitioner Family Medicine 05/17/24 Lead 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 Specialty Start Date End Date Renny Hansen MD [address] [facility] [place], [place] [id number] PCP - General Internal Medicine 09/19/24 Team Status: Active Member Role Status Dates Renny Hansen II MD Primary Care Provider Active Team Status: Inactive Member Role Status Dates Renny Hansen II MD Primary Care Provid er, Referring Provider Active Start: August 24, 2024 End: August 24, 2024 Katharina Toledo APRN Attending Provider Active Start: August End: August [...] September 25, 2024 End: September 25, 2024 Lead 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 Specialty Start Date End Date Renny Hansen MD [address] [place] [address] PCP - General Internal Medicine 09/19/24 Lead 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 Specialty Start Date End Date Renny Hansen MD [address] [place] [address] PCP - General Internal Medicine 09/19/24 Lead 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 Specialty Start Date End Date Renny Hansen MD [address] [place] [address] PCP - General Internal Medicine 09/19/24 Lead 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 Specialty Start Date End Date Renny Hansen MD [address] [facility] [address] [place] [address] PCP - General Internal Medicine 09/19/24 Team [...] October 16, 2024 End: October 16, 2024 Lead 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 Specialty Start Date End Date Renny Hansen MD [address] [facility] [address] [place] [address] PCP - General Internal Medicine 09/19/24 Lead 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 Specialty Start Date End Date Renny Hansen MD [address] [place] [address] PCP - General Internal Medicine 09/19/24 Team Status: Inactive Member Role Status Dates Renny Hansen II MD Primary Care Provider Active Start: October 24, 2024 End: October 24, 2024 Sakina [place] Longoria, DO Attending Provider Active Start: October 24, 2024 End: October 24, 2024 Team Status: Inactive Member Role Status Dates Renny Hansen II MD Primary Care Provider Active Start: October 29, 2024 End: October 29, 2024 Juan Monahan II, DO Attending Provider Active Start: October 29, 2024 End: October 29, 2024 Team Status: Active Member Role Status Dates Renny Hansen II MD Primary Care Provid er, Referring Provider Active Start: October 29, 2024 Katharina Gale Tre , BONING ROOM WORKER Attending Provider Active Start: October Lead 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 Specialty Start Date End Date Renny Hansen MD [address] [place] [address] PCP - General Internal Medicine 09/19/24 Renny Hansen MD [address] [place] [address] PCP - Medical Rio MA 09/12/2409/11 Cindi Jenkins LSW Manager Meat Family Medicine 11/06/24 Lead 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 Specialty Start Date End Date Renny Hansen MD [address] [place] [address] PCP - General Internal Medicine 09/19/24 Renny Hansen MD [address] [place] [address] PCP - Medical Rio MA 09/12/2409/11 Cindi Jenkins LSW Manager Meat Family Medicine 11/06/24 Lead 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 Specialty Start Date End Date Renny Hansen MD [address] [place] [address] PCP - General Internal Medicine 09/19/24 Renny Hansen MD [address] [facility] [address] [place] [address] PCP - Medical Rio MA 09/12/2409/11 Cindi Jenkins LSW Manager Meat Family Medicine 11/06/24 Goals (unrecognized section and content) Goals may be documented in a n alternate section Source Comments (unrecognize d section and content) In the event this informatio n is protected by the Federal Confidentiality of Alcohol and Drug Abuse Patient Records regulations: The Federal rules restrict any use of the information to criminally investigate or prosecute any alcohol or drug abuse patient.[facility] the event this information is protected by the Federal Confidentiality of Alcohol and Drug Abuse Patient Records regulations: The Federal rules restrict any use of the information to criminally investigate or prosecute any alcohol or drug abuse patient.[facility] the event this information is protected by the Federal Confidentiality of Alcohol and Drug Abuse Patient Records regulations: The Federal rules restrict any use of the information to criminally investigate or prosecute any alcohol or drug abuse patient.[facility] FOR RECORDS PERTAINING TO PATIENTS WHO ARE [...] BE BASED ON THE PRIMARY CLINICAL RECORDS. [facility]. provides no warranty or guarantee of the accuracy or completeness of information in this document.
[2024-12-17 06:53] VITALS: BP 143/73; PULSE 60; TEMP 36.2; O2SAT 95
[2024-12-17 08:06] VITALS: BP 170/77; PULSE 78; O2SAT 93
[2024-12-17 08:07] VITALS: BP 163/77; PULSE 66; O2SAT 99
[2024-12-17] MEDS: BUPIVACAINE HCL 0.25% PF 25 MG/10 ML VIAL INJ (08:09)
[2024-12-17] MEDS: 0.9 % SODIUM CHLORIDE 10 ML SYRINGE - SALINE FLUSH INJ (08:09)
--- NOTE | 2024-12-17 08:09 | P.ON_ITS ---
Date of procedure: 12/17/24 Pre-op diagnosis: Pain due to lumbar stenosis with neurogenic claudication Post-op diagnosis: same as pre-op Procedure: Procedure: Right L4-5, L5-S1 transforaminal epidural steroid injection Medications: Bupivacaine 0.25% 2cc, lidocaine 2% 1cc, depomedrol 80mg The patient was seen and examined in the preoperative holding area.? Informed consent was obtained and placed on the chart.? Patient was brought to the medical procedure unit and placed in the prone position where a timeout was completed verifying the correct patient, procedure site, position, and planned special equipment using sterile aseptic technique.? Under direct fluoroscopic visualization a 25-gauge Quincke tipped spinal needle was advanced to the designated neural foramen where contrast dye was injected to show adequate spread.? The needle was inserted at level right L4-5. There was no evidence of vascular or adverse uptake.? Epidural spread was appreciated.? The above- mentioned injectate was then placed in a 1.5 mL aliquot preceded by negative aspiration.? The needle was removed. The needle was inserted and the procedure repeated at level right L5-S1.? The surgery site was covered.? Patient was taken to the postprocedural recovery area and monitored for an appropriate length of time before found suitable for discharge in the accompaniment of a responsible adult. Anesthesia: Local Surgeon: Miguel Murphy Pathology: none sent Condition: stable Disposition: no change
[2024-12-17] MEDS: METHYLPREDNISOLONE ACETATE 80 MG/ML VIAL INJ (08:10)
[2024-12-17] MEDS: IOHEXOL 240 MG/ML - 10 ML VIAL 24 MG INJ (08:10)
[2024-12-17] MEDS: LIDOCAINE HCL 2% 400 MG/20 ML MDV 3 ML INJ (08:10)
== END 2024-12-17 08:26 | disposition home or self-care (01) ==
LOC: SURGOUT 06:42
PROVIDERS: PCP Internal Medicine; Visit Provider Anesthesiology
DX: M54.50 Low back pain, unspecified (principal); M48.062 Spinal stenosis, lumbar region with neurogenic claudication
CPT/HCPCS: 64483; 64484; J0665; J1010; Q9966

== ENCOUNTER 2024-12-21 16:41 | Outpatient (OUT) | payer MEDICARE, SELFPAY ==
[2024-12-21 17:18] LABS: Anion Gap 11.7; BUN Creatinine Ratio 22.4; Calcium 9.1 mg/dL (8.5-10.1); Carbon Dioxide 27.4 mmol/L (21.0-32.0); Chloride 100 mmol/L (98-107); Estimated GFR (African America >60 (>=60 mL/min/1.73m^2); Estimated GFR (Non-African Ame 55 (>=60 mL/min/1.73m^2); Glucose 114 mg/dL (74-106); Potassium 4.1 mmol/L (3.5-5.1); Sodium 135 mmol/L (136-145)
== END 2024-12-21 16:42 | disposition home or self-care (01) ==
PROVIDERS: PCP Internal Medicine; Visit Provider Internal Medicine Cardiovascular Disease
DX: I11.9 Hypertensive heart disease without heart failure (principal)
CPT/HCPCS: 36415; 80048

== ENCOUNTER 2025-01-03 10:14 | Outpatient (OUT) | payer MEDICARE, SELFPAY ==
--- NOTE | 2025-01-03 10:35 | P.CN_ITS ---
Consult Note: HPI Data of Consult Patient: known to practice within the last 3 years Requesting Physician: Claire Clement NP Primary Care Provider: FAVIAN LUNA Consult Narrative Reason for consult: low back and RLE pain Narrative: Breann Starks a pleasant 78 year old female presents for evaluation and management of chronic low back and right leg pain. failed to benefit from > 6 weeks of HEP, heat, ice, tylenol, cannot take NSAIDs on eliquis. currently utilizing baclofen 10mg TID PRN and norco 5-325mg TID PRN moderate to severe pain. continues to have moderate to severe left shoulder and arm pain, pending further workup with orthopedics and ID. MATILDE previously 49%, 16% today. denies falls/injury. recently underwent right L4-5 L5-S1 TFESI with >50% improvement ongoing. Pain 0/10 increasing to 2/10 in low back however 5/10 in left shoulder and arm increasing to 10/10. cc:: CC: Claier Clement NP Review of Systems ROS Status of ROS 10 or more systems reviewed and unremark able except as noted in history and below Musculoskeletal Reports: back pain, extremity pain and joint pain [facility] Medical History (Updated 09/13/24 @ 09:36 by Claire Clement NP) Arthritis ?M19.90 - Unspecified osteoarthritis, unspecified site (ICD-10) Chronic obstructive pulmonary disease ?J44.9 - Chronic obstructive pulmonary disease, unspecified (ICD-10) Peptic ulcer ?K27.9 - Peptic ulcer, site unspecified, unspecified as acute or chronic, without hemorrhage or perforation (ICD-10) Dyspnea on exertion ?R06.09 - Other forms of dyspnea (ICD-10) Anemia ?D64.9 - Anemia, unspecified (ICD-10) Hypertension ?I10 - Essential (primary) hypertension (ICD-10) Extremity edema ?R60.0 - Localized edema (ICD-10) Congestive heart failure ?I50.9 - Heart failure, unspecified (ICD-10) Atrial fibrillation ?I48.91 - Unspecified atrial fibrillation (ICD-10) Shoulder pain ?M25.519 - Pain in unspecified shoulder (ICD-10) Fatty liver ?K76.0 - Fatty (change of) liver, not elsewhere classified (ICD-10) History of shingles ?Z86.19 - Personal history of other infectious and parasitic diseases (ICD- 10) Osteoarthritis ?M19.90 - Unspecified osteoarthritis, unspecified site (ICD-10) Pacemaker ?Z95.0 - Presence of cardiac pacemaker (ICD-10) Hiatal hernia ?K44.9 - Diaphragmatic hernia without obstruction or gangrene (ICD-10) Low back pain ?M54.50 - Low back pain, unspecified (ICD-10) Irregular heart beat ?I49.9 - Cardiac arrhythmia, unspecified (ICD-10) Surgical History History of shoulder replacement ?Z96.619 - Presence of unspecified artificial shoulder joint (ICD-10) S/P rotator cuff repair ?Z98.890 - Other specified postprocedural states (ICD-10) History of colonoscopy ?Z98.890 - Other specified postprocedural states (ICD-10) S/P YANELI-BSO ?Z90.710 - Acquired absence of both cervix and uterus (ICD-10) ?Z90.722 - Acquired absence of ovaries, bilateral (ICD-10) ?Z90.79 - Acquired absence of other genital organ(s) (ICD-10) H/O cardiac catheterization ?Z98.890 - Other specified postprocedural states (ICD-10) H/O arthroscopy of shoulder ?Z98.890 - Other specified postprocedural states (ICD-10) H/O arthroscopy of knee ?Z98.890 - Other specified postprocedural states (ICD-10) History of appendectomy ?Z90.49 - Acquired absence of other specified parts of digestive tract (ICD- 10) History of total knee arthroplasty ?Z96.659 - Presence of unspecified artificial knee joint (ICD-10) Social History Within the past year, how often did you have a drink containing alcohol: monthly or less Smoking status: Former smoker Non-prescribed substance use: denies use Previous occupational history: retired Highest level of school completed/degree received: high school graduate Little interest or pleasure in doing things: not at all Feeling down, depressed, or hopeless: not at all Meds Home Medications and Allergies Home Medications ?Medication ?Instructions ?Recorded ?Confirmed ?Type cholecalciferol (vitamin D3) 125 5,000 unit PO DAILY 02/16/23 12/17/24 History mcg (5,000 unit) tablet (Vitamin D3) flecainide 100 mg tablet 100 mg PO Q12H 02/16/23 12/17/24 History omeprazole 40 mg capsule,delayed 40 mg PO DAILY 02/16/23 12/17/24 History release spironolactone 25 mg tablet 25 mg PO DAILY 02/16/23 12/17/24 History (Aldactone) verapamil 180 mg tablet,extended 180 mg PO Q12H 02/16/23 12/17/24 History release (Calan SR) apixaban 5 mg tablet (Eliquis) 5 mg PO BID 05/11/23 12/17/24 History furosemide 40 mg tablet 40 mg PO DAILY 03/01/24 12/17/24 History naloxone 4 mg/actuation nasal 4 mg intranasal Q3M PRN opioid 05/17/24 12/17/24 Rx spray (Narcan) overdose #2 ea ipratropium 0.5 mg-albuterol 3 mg 3 ml inhalation Q6H PRN shortness 05/25/24 12/17/24 Rx (2.5 mg base)/3 mL nebulization of breath #90 mL soln baclofen 10 mg tablet 10 mg PO TID #90 tabs 10/10/24 12/17/24 Rx hydrocodone 5 mg-acetaminophen 325 1 tab PO TID PRN pain #90 tabs 10/26/24 12/17/24 Rx mg tablet Allergies Allergy/AdvReac Type Severity Reaction Status Date / Time No Known Drug Allergies Allergy Verified 12/17/24 06:58 Exam Constitutional Documenting provider has reviewed patient's vital signs: yes Common normals: no apparent distress, oriented x3, healthy appearing, alert and well nourished General appearance: cooperative [facility] Common normals: normocephalic, hearing grossly normal bilaterally and moist oral mucous membranes Head and scalp: normocephalic Eye Common normals: PERRL Pupil: PERRL Neck & C-Spine Common normals: full ROM General: normal visual inspection Chest Common normals: inspection of chest normal Respiratory Common normals: normal respiratory effort, no retractions and no use of accessory muscles Back & Pelvis Lumbar spine/lower back: ROM limited, pain with ROM and straight leg raise negative bilaterally; no lumbar spinal tenderness Other: sensation intact BLE strength 5/5 in BLE Extremity Other: left shoulder limited ROM Neuro Common normals: oriented x3, CN's II-XII intact bilaterally, moves all extremities, no focal motor deficits, no sensory deficits noted and deep tendon reflexes 2+ bilaterally Sensorium/orientation: alert Motor exam: no movement abnormalities noted Psych Common normals: mental status grossly normal, thought process normal, cooperative, affect normal, speech normal and activity/motor behavior normal Speech: normal speech Thought process: normal thought process Results Additional Findings Additional findings: If on a controlled substance or opioids, I have checked an [place]AR[place] report on this patient and there are no aberrancies noted in the prescribing history.??If on a controlled substance or opioid a drug screen was completed and reviewed within the last year, and if there has not been a drug screen completed we ordered one today to monitor higher risk, state monitored pain medication use. As part of providing excellent, safe, comprehensive care, the following was completed at our patient's visit: 1. A medication reconciliation and review to ensure accurate knowledge of current/active medications, including asking our patients to inform us about any [id number] medications or herbal remedies/nutritional supplements/alternative remedies. 2. A review to specifically ensure our patients have had annual screening for screening for depression, screening for tobacco use, and screening for unhealthy alcohol use. For concerning screenings had a discussion with the patient, provided patient education, and recommended follow-up with primary care provider when appropriate. If patient noted with a risk of falling, they received education on strength, gait, and balance training to prevent future risk of falling. Portions of this note may have been carried over from the previous visit and updated as appropriate. Please note this office utilizes paper charting in addition to the electronic medical record. A list of current medications, vitals, and PMH is available there as the clinical staff outside of myself do not have access to [employer] charting during the clinic day operations. As part of providing quality comprehensive care the current medications, vitals, and PMH were reviewed in the paper chart. Assessment and Plan Assessment and Plan (1) Lumbar stenosis with neurogenic claudication: (2) Lumbar spondylosis: (3) Chronic use of opiate drug for therapeutic purpose: Assessment and Plan: I feel these medications are improving the patient's quality of life and allow them to tolerate activities of daily living as well as participate in recreational activity.? The patient does not report intolerable side effects. The patient is NOT opioid naive and non-pharmacologic and non-opioid treatment has failed to significantly relieve the patient's pain and improve functionality. The patient has a diagnosis that is related to a somatic or visceral pain etiology. ? ?? I reviewed with the patient the potential risks and side effects with the use of? opioid medications including but not limited to respiratory depression,? sedation, and even . Within the last 12 months I have verified the patient has access to naloxone should? these effects occur. The patient was advised to let? their family know they had Naloxone in case they would need to administer? the medication. I advised the patient to avoid the use of any other? sedation substances including alcohol, THC, and benzodiazepines while? taking opioid medications due to the risk of compounding side effects and? detrimental outcomes. within the last 12 months I have reviewed the RELIABILITY TECHNOLOGIST, pain treatment agreement and urine drug screen.? ?? A drug screen was completed within the last year, and no aberrancies were noted regarding their use of controlled substances. The patient understands they are subject to the terms and conditions of the pain contract that they have signed. ? ?? I have checked an OARRS report on this patient today and there are no aber rancies noted in the prescribing history.? (4) Chronic left shoulder pain: Plan right L4,5 L5,S1 TFESI providing significant ongoing relief continue current medications, finds significant benefit without side effects. encouraged to use BID PRN when pain is tolerable continue HEP as tolerated f/u 3 months, sooner if needed
== END 2025-01-03 10:15 | disposition home or self-care (01) ==
PROVIDERS: PCP Internal Medicine; Visit Provider Nurse Practitioner
DX: M48.062 Spinal stenosis, lumbar region with neurogenic claudication (principal); M47.816 Spondylosis without myelopathy or radiculopathy, lumbar region; Z79.891 Long term (current) use of opiate analgesic; M25.512 Pain in left shoulder
CPT/HCPCS: G0463

== ENCOUNTER 2025-01-27 10:20 | Emergency (ER) | payer MEDICARE, SELFPAY ==
--- OUTSIDE RECORDS SUMMARY | 2025-01-27 10:27 | XMS_ITS | CCD ---
Author Organization [facility] CliniSyal Care Team Providers Care Dietetic Aide Name Role Phone ZANE MCGUIRE Admitting Unavailable DMITRIY HENNESSY Referring Unavailable LUISANA JOHNSON Primary Care Unavailable ZANE MCGUIRE Attending Unavailable DMITRIY HENNESSY Surgeon Unavailable HI Procedure Practitioner Unavailab Hong Adler Unavailable JOHNSON ., DR LUISANA Jarquin Primary Care Unavailable JOHNSON ., DR LUISANA Jarquin Admitting Unavailable JOHNSON ., DR LUISANA Jarquin Attending Unavailable JOHNSON ., DR LUISANA Jarquin Consulting Unavailable JOHNSON ., DR LUISANA Jarquin Primary Care Unavailable CIRA, H Attending Unavailable FAWWAD, SAHU H Admitting Unavailable FAWWAD, SAHU H Admitting Unavailable FASILVANA, H Attending Unavailable JOHNSON ., DR LUISANA [...] Admitting Unavailable RIVER ., KAYLEY Attending Unavailable PORT CRANE, DR HONG Morgan Consulting Unavailable JOHNSON ., [...] ., DR LUISANA Jarquin Primary Care Unavailable OJHNSON ., DR LUISANA Jarquin Attending Unavailable JOHNSON [...] Primary Care Provider THANG Clement Attending Provider Shaikh Denis MD Primary Care Provider Jair ALEXANDER Attending Unavailable SHAIKH DENIS Referring Unavailable Jair ALEXANDER Attending Unavailable MD Santos Denisikh Primary Care Provider DO James Jones Attending Provider [phone] YOLY Cruz Attending Provider [phone] Luisana Johnson MD Primary Care Provider [phone] Pedro Pablo Cruz MD Unavailable LUISANA JOHNSON Primary Care Unavailable BOO BUCHANAN Attending Unavailable PEDRO PABLO CRUZ Referring Unavailable LUISANA JOHNSON Primary Care Unavailable BOO BUCHANAN Referring Unavailable Wesley Long MD Primary Care Provider Monster Calvillo NP Unavailable [phone] Shaikh Denis MD Primary Care Provider Renny Hansen MD Primary Care Provider Pedro Pablo Cruz PA-C Attending Provider Renny Hansen II Primary Care Provider [phone] Pedro Pablo Cruz PA-C Attending Provider Renny Hansen II Referring Provider [phone] Katharina Toledo APRN Attending Provider Dmitriy Duque DO Attending Provider Sakina Cardenas DO Attending Provider Renny Hansen II Referring Provider Katharina Toledo APRN Attending Provider Renny Hansen MD Unavailable Gregory GAMING CAGE CASHIER, Cindi Unavailable [phone] Lisa Ramirez LPN Unavailable Unavailable SHAIKH DENIS Attending Unavailable CIRA, Attending Unavailable SHAIKH DENIS Attending Unavailable CIRA, Attending Unavailable PEDRO PABLO CRUZ Attending Unavailable PEDRO PABLO CRUZ Referring Unavailable JR. CARDENAS GEORGE C Attending Unavaila MONSTER Johnson Attending Unavailabl RENNY Parkinson Attending Unavailable ELEANOR DUMONT Attending Unavailable RENNY HANSEN Attending Unavailable RENNY HANSEN Attending Unavailable SALOME CID Attending Unavailable RENNY HANSEN Referring Unavailable LUISANA LEAL Attending Unavailable DMITRIY DUQUE Attending Unavailable RENNY HANSEN Attending Unavailable JR. CARDENAS GEORGE C Attending Unavaila RENNY Barnhart Referring Unavailable JR. CARDENAS GEORGE C Attending Unavaila RENNY Barnhart Attending Unavailable Katherine CUBA, Andrius Sainz Attending Unavailable Gibandar CUBA, Andrius Alistair Attending Unavailable Gibandar CUBA, Andrius Vytjoselito Attending Unavailable Gibandar CUBA, Andrius Vytjoselito Attending Unavailable Katherine CUBA, Andrius Cathyytjoselito Attending Unavailable Katherine CUBA, Andrius Alistair Attending Unavailable Katherine CUBA, Andrius Sainz Attending Unavailable Renny Hansen Primary Care Unavailable Sakina Cardenas Jr Admitting Unavailable Sakina Cardenas Jr Attending Unavailable Renny Hansen Primary Care Unavailable Renny Hansen Referring Unavailable Katharina Toledo Admitting Unavail able Tre, Katharina Gale Attending Unavail able [place], [facility] Primary Care Unavailable Jones, James J Admitting Unavailable Jones, James J Attending Unavailable [place], [facility] Primary Care Unavailable Jones, Jaems J Admitting Unavailable Jones, James J Attending Unavailable [place], [facility] Primary Care Unavailable Cruz, Pedro Pablo Admitting Unavailable Cruz, Pedro Pablo Attending Unavailable Tyrone, Renny Primary Care Unavailable Cruz, Pedro Pablo Admitting Unavailable Cruz, Pedro Pablo Attending Unavailable Hansen, Renny Primary Care Unavailable Laffajoby, Dmitriy Admitting Unavailable Laffay, Dmitriy Attending Unavailable MINOO, DMITRIY Referring Unavailable MINOO, DMITRIY Referring Unavailable ANUPAMA, KOLTON Attending Unavailable ANUPAMA, KOLTON Attending Unavailable ANUPAMA, KOLTON Attending Unavailable SKIE, DEREK Attending Unavailable FLORIAN, JAIR Attending Unavailable SKIE, DEREK Attending Unavailable SKIE, DEREK Referring Unavailable SKIE, DEREK Attending Unavailable STEPANICSAKINA Referring Unavailable Allergies Allergy Classification Reported Allergen(s) Allergy Type Date of Onset Reaction(s) Facility NSAIDs (1 source) meloxicam; Translations: [Mobic] Drug Allergy [facility] Repository Unclassified (1 source) No Known Medication Allergies; Translations: [No Known Medication Allergies] Propensity to adverse reactions (disorder) [facility] Repository (1 source) novacaine; Translations: [novacaine] Propensity to adverse reactions (disorder) 2 [facility] Repository (20 sources) NSAIDs Propensity to adverse reactions [address] [facility] (7 sources) Adhesive agent; Translations: [adhesive] Allergy to substance 4 Swelling [facility] (4 sources) NSAIDS (Non-Steroidal Anti-Inflamma; Translations: [NSAIDS (Non-Steroidal Anti-Inflamma] Allergy to substance 4 HEART ISSUES [facility] (20 sources) Digoxin Drug Allergy 4 [facility] Work Phone: (20 sources) Wound Dressing Adhesive Drug Allergy 4 [facility] Medications Current Medications Medication Drug Class(es) Dates Sig (Normalized) Sig (Original) 8 hr acetaminophen 650 mg extended release oral tablet (20 sources) Start: 09-25-2024 take 1 tablet by mouth every twelve hours Acetaminophen (Tylenol Arthritis Pain) 650 mg tablet extended release Active 650 MG PO Every 12 hours September 25, 2024 12:00am take 2 tablets by mo [facility] every six hours for pain acetaminophen (Tylenol) [...] 1 tablet by mouth at bedtime HYDROcodone-acetaminophen ([place]) 5-325 MG tablet Take 1 tablet by mouth in the morning and 1 tablet in the evening and 1 tablet before bedtime. 06/21/2024 Active Start: 04-11-2024 End: 06-15-2024 take 1 tablet by mouth three times daily as needed for pain HYDROcodone-acetaminophen ([place]) 5-325 MG tablet Indications: Chronic left shoulder pain Take 1 tablet by mouth 3 (three) times a day as needed for severe pain 90 tablet 05/16/2024 06/15/2024 Active Start: 03-01-2024 take 1 tablet by [facility] twice daily acetaminophen-hydrocodone 325 mg-5 mg or al tablet 1 tab(s), Oral, BID, Refill(s) 0 Start Date: 03/01/24 Status: Ordered albuterol 0.833 mg/ml / ipratropium bromide 0.167 mg/ml inhalation solution (14 sources) Anticholinergic, beta2-Adrenergic Agonist Start: 05-25-2024 ipratropium-albuterol [...] (6 sources) Cephalosporin Antibacterial Start: 2024 End: 02-12- 2025 take 1 capsule by mouth in the [...] Active hydrocortisone valerate 2 mg/ml topical cream (14 sources) Corticosteroid Start: 10-17-2024 hydrocortisone ([place]) 0.2 % cream Indications: Phlebitis of left upper extremity Apply topically 2 (two) times a day 45 g 1 10/17/2024 Active Multiple Vitamins-Minerals (CENTRUM SILVER 50+WOMEN PO) (20 sources) take 1 tablet by mouth in the morning Multiple Vitamins-Minerals (CENTRUM SILVER 50+WOMEN PO) Take 1 tablet by mouth in the morning. Active take [facility] Multiple Vitamins-Minerals (CENTRUM SILVER 50+WOMEN PO) [...] take 1 capsule by mo [facility] every twenty-four hours Omeprazole 40 MG 1 capsule Orally Once a day Active penicillin v potassium 500 mg oral tablet (3 sources) penicillin v potassium (Veetid) 500 MG tablet Take 500 mg by mouth in the morning and 500 mg at noon and 500 mg in the evening and 500 mg before bedtime. Active potassium chloride 10 meq extended release oral capsule (2 sources) take 1 capsule by mouth every twenty-four hours Potassium Chloride 10 MEQ 1 capsule with food Orally Once a day Active spironolactone 50 mg oral tablet (20 sources) Aldosterone Antagonist Start: 09-24-19 take 1 tablet by mouth in the morning spironolactone (Aldactone) 50 MG tablet Take 50 mg by mouth in the morning. 09/24/2024 Active Start: 11-16-2023 End: 10-17-2024 Spironolactone 25 mg tablet Active 25 MG PO November 16, 2023 12:00am verapamil hydrochloride 180 mg extended release oral tablet (20 sources) Calcium Channel Ozzy Start: 11-11-2024 take 2 tablets by mouth in the morning verapamil SR (Calan SR) 180 MG ER tablet Take 360 mg by mouth in the morning. 11/11/2024 Active Start: 03-01-2024 take 1 capsule by [facility] once daily verapamil 180 mg Cap-ER 180 mg = 1 cap(s), Oral, Daily, Refills(s) 0 Start Date: 03/01/24 Status: Ordered Start: 11-16-2023 take 1 capsule by [facility] every twenty-four hours Verapamil 180 mg capsule,ext rel. pellets 24 hr Active MG PO November 16, 2023 12:00am Start: 02-14-2023 End: 12-17-2024 take 1 capsule by mouth every twenty-four hours in the morning verapamil ER (Verelan) 180 MG 24 hr capsule Take 360 mg by mouth in the morning. 02/14/2023 12/17/2024 Discontinued (Duplicate order) take 1 capsule by [facility] every twenty-four hours Verapamil HCl ER [...] Chronic Complication of device; implant or graft (12 sources) 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; [...] disease (20 sources) Atherosclerotic heart disease of [place] coronary artery without angina pectoris; Translations: [Coronary [...] unspecified] 08-24-2024 Episodic Disorders of lipid metabolism (5 sources) Hyperlipidemia, unspecified; Translations: [Pure hypercholesterolemia, unspecified] Onset: 3 Chronic Diverticulosis and diverticulitis (20 [...] Onset: 3 Episodic Other aftercare (1 source) 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; Translations: [FDC CURRNT USE 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] Onset: 3 Episodic Other aftercare (1 source) Other snf (current) drug therapy; Translations: [OTH FORKLIFT PICKER CURRENT DRUG THERAPY] Onset: 3 Episodic Other and ill-defined heart disease (20 sources) Diastolic dysfunction; Translations: [Other ill-defined heart diseases] Onset: 4 02-27-2024 Chronic Other connective tissue disease (4 sources) History of reverse prosthetic total arthroplasty of left shoulder; Translations: [Presence of left artificial shoulder joint] 05-09-2024 Chronic Other connective tissue disease (2 sources) Presence of left artificial shoulder joint; Translations: [Presence of left artificial shoulder joint] Onset: 5 Chronic Other connective tissue disease (4 sources) Radicular pain; Translations: [Neuralgia and neuritis, unspecified] 07-05-2024 Episodic Other connective tissue disease (4 sources) Pain in left arm; Translations: [Pain in left arm] 09-18-2024 Episodic Other diseases of veins and lymphatics (2 sources) Venous insufficiency (chronic) (peripheral); Translations: [Venous insufficiency (chronic) (peripheral)] Onset: 3 Episodic Other gastrointestinal disorders (20 sources) Irritable [...] pain; Translations: [Other chronic pain] Chronic Other nervous system disorders (4 sources) Chronic low back pain; Translations: [Other chronic pain] Onset: 3 09-06-2023 Chronic Other non-traumatic joint disorders (12 sources) [...] conditions (not mental disorders or infectious disease) (15 sources) Abnormal coagulation profile; Translations: [Encounter for [...] Name Value Interpretation Reference Range Facility 36on 01-18-2025 36 I called the patient . Labs are okay. Continue penicillin. Normal [facility] Telephoneon 01-18-2025 Telephone [id number] Bob Starksnick edgar Mckenzie 1945 F Date Provider Department [place] 01/18/2025 JAIR BOLAND [facility] INF Carol Ann Heal Family History Adopted: Yes Family history unknown: Yes Family Status - Relation Status Age at Mother Father Normal [facility] BASIC METABOLIC PANELon Anion gap [Moles/Vol] 10 mmol/L Normal 7-20 [facility] Comment on above: Performed By: #### L [id number] ####[facility] (BEAKER)[address] [place] [address] Calcium [Mass/Vol] 8.9 mg/dL Normal 8.6-10.3 [facility] Comment on above: Performed By: #### L [id number] ####[facility] ([facility])[address] [place] [address] Chloride [Moles/Vol] 103 mmol/L Normal 98-107 [facility] Comment on above: Performed By: #### L [id number] ####[facility] ([facility])[address] [place] [address] CO2 [Moles/Vol] 26 mmol/L Normal 21-31 [facility] Comment on above: Performed By: #### L [id number] ####[facility] ([facility])[address] [place] [address] Creatinine [Mass/Vol] 0.64 mg/dL Normal 0.60-1.20 [facility] Comment on above: Performed By: #### L [id number] ####[facility] ([facility])[address] [place] [address] GLOMERULAR FILTRATION RATE ML/MIN/1.73 SQ M.PREDICTED 91.0 mL/min/1.73m*2 Normal >60.0 [facility] Comment on above: Result Comment: The [facility]???s estimated glomerular filtration rate (eGFR) will no longer include consideration of race in its calculation. The National Kidney Foundation???s eGFR Task Force developed new recommendations for the estimation of the glomerular filtration rate in the [place] They recommend immediate implementation of the new equation refit without the race variable in all laboratories because the calculation does not include race. In addition to not including race in the calculation and reporting, it included diversity in its development, and has acceptable performance characteristics and potential consequences that do not disproportionately affect any one group of individuals. Performed By: #### L [id number] ####[facility] ([facility])[address] [place] [address] Glucose [Mass/Vol] 92 mg/dL Normal 70-100 [facility] Comment on above: Performed By: #### L [id number] ####[facility] ([facility])[address] [place] [address] Potassium [Moles/Vol] 4.1 mmol/L Normal 3.5-5.1 [facility] Comment on above: Performed By: #### L [id number] ####[facility] ([facility])[address] [place] [address] Sodium [Moles/Vol] 135 mmol/L Low 136-145 [facility] Comment on above: Performed By: #### L [id number] ####[facility] ([facility])[address] [place] [address] Urea nitrogen [Mass/Vol] 17 mg/dL Normal 7-25 [facility] Comment on above: Performed By: #### L [id number] ####[facility] ([facility])[address] [place] [address] UREA NITROGEN/CREATININE (MASS RATIO) IN SER/PLAS 26.6 Normal [facility] Comment on above: Performed By: #### L [id number] ####[facility] ([facility])[address] [place] [address] C-REACTIVE PROTEINon 025 C REACTIVE PROTEIN (MG/L) IN SER/PLAS 6.8 mg/L High <=5.0 [facility] Comment on above: Result Comment: Test ing performed using a new methodology, turbidimetry. Normal ranges have been updated. Old normal range was <8 mg/L. Performed By: #### L [id number] ####[facility] ([facility])[address] [place] [address] CBC WITH AUTO DIFFERENTIALon 01-17-2025 Basophils (Bld) [#/Vol] 0.07 10*3/uL Normal 0.00-0.20 [facility] Comment on above: Performed By: #### L [id number] #### [facility] ([facility]) [address] [place] [address] Basophils/100 WBC (Bld) 0.9 % Normal 0.0-1.0 [facility] Comment on above: Performed By: #### L [id number] #### [facility] ([facility]) [address] [place] [address] Eosinophils (Bld) [#/Vol] 0.16 10*3/uL Normal 0.00-0.50 [facility] Comment on above: Performed By: #### L [id number] #### [facility] ([facility]) [address] [place] [address] Eosinophils/100 WBC (Bld) 2.2 % Normal 0.0-6.0 [facility] Comment on above: Performed By: #### L [id number] #### [facility] ([facility]) [address] [facility] [place] [address] Erythrocyte distribution width (RBC) [Ratio] 18.4 % High 11.5-15.0 [facility] Comment on above: Performed By: #### L [id number] #### [facility] ([facility]) [address] [place] [address] ERYTHROCYTE MEAN CORPUSCULAR HEMOGLOBIN CONCENTRATION (G/DL) BY AUTOMATED 29.6 g/dL Low 32.0-35.0 [facility] Comment on above: Performed By: #### L [id number] #### [facility] ([facility]) [address] [place] [address] Hematocrit (Bld) [Volume fraction] 33.1 % Low 36.0-45.0 [facility] Comment on above: Performed By: #### L [id number] #### [facility] [address] [place] [address] Hemoglobin (Bld) [Mass/Vol] 9.8 g/dL Low 12.0-15.0 [facility] Comment on above: Performed By: #### L [id number] #### [facility] ([facility]) [address] [place] [address] Immature granulocytes (Bld) [#/Vol] 0.02 10*3/uL Normal 0.00-0.20 [facility] Comment on above: Performed By: #### L [id number] #### [facility] ([facility]) [address] [place] [address] Immature granulocytes/100 WBC (Bld) 0.3 % Normal 0.0-1.0 [facility] Comment on above: Performed By: #### L [id number] #### [facility] ([facility]) [address] [place] [address] Lymphocytes (Bld) [#/Vol] 1.32 10*3/uL Normal 1.20-4.00 [facility] Comment on above: Performed By: #### L [id number] #### [facility] ([facility]) [address] [place] [address] Lymphocytes/100 WBC (Bld) 17.9 % Low 20.0-45.0 [facility] Comment on above: Performed By: #### L [id number] #### [facility] [address] [place] [address] MCH (RBC) [Entitic mass] 25.1 pg Low 27.0-33.0 [facility] Comment on above: Performed By: #### L [id number] #### [facility] ([facility]) [address] [place] [address] MCV (RBC) [Entitic vol] 84.7 fL Normal 82.0-98.0 [facility] Comment on above: Performed By: #### L [id number] #### [facility] ([facility]) [address] [place] [address] Monocytes (Bld) [#/Vol] 0.50 10*3/uL Normal 0.10-1.00 [facility] Comment on above: Performed By: #### L [id number] #### [facility] ([facility]) [address] [place] [address] Monocytes/100 WBC (Bld) 6.8 % Normal 5.0-12.0 [facility] Comment on above: Performed By: #### L [id number] #### [facility] ([facility]) [address] [place] [address] Neutrophils (Bld) [#/Vol] 5.32 10*3/uL Normal 1.60-7.60 [facility] Comment on above: Performed By: #### L [id number] #### [facility] [address] [place] [address] Neutrophils/100 WBC (Bld) 71.9 % Normal 40.0-72.0 [facility] Comment on above: Performed By: #### L [id number] #### [facility] [address] [place] [address] NRBC (PER 100 WBCS) BY AUTOMATED COUNT 0.0 % Normal 0 [facility] Comment on above: Performed By: #### L [id number] #### [facility] ([facility]) [address] [place] [address] PLATELETS (10*3/UL) IN BLOOD AUTOMATED COUNT 338 10*3/uL Normal 150-400 [facility] Comment on above: Performed By: #### L [id number] #### [facility] ([facility]) [address] [place] [address] RBC (Bld) [#/Vol] 3.91 10*6/uL Normal 3.80-5.00 [facility] Comment on above: Performed By: #### L [id number] #### [facility] ([facility]) [address] [place] [address] WBC (Bld) [#/Vol] 7.39 10*3/uL Normal 4.00-10.60 [facility] Comment on above: Performed By: #### L [id number] #### [facility] ([facility]) [address] [place] [address] Office Visiton 01-17-2025 Follow-up visit [id number] Oliver Starks 1945 F Date Provider Department Center 01/17/2025 JAIR BOLAND [facility] INF Carol Ann Heal Family History Adopted: Yes Family history unknown: Yes Family Status - Relation Status Age at Mother Father Level of Service:58385 HI OFFICE/OUTPATIENT NEW HIGH MDM 60 MINUTES Reason for Visit and Comments: New Patient [632] [facility] Orders Onlyon 01-17-2025 Orders Only [id number] Oliver Starks 1945 F Date Provider Department Center 01/17/2025 MEHREEN BRAY [facility] DERM Carol Ann Heal Family History Adopted: Yes Family history unknown: Yes Family Status - Relation Status Age at Mother Father [facility] 36on 01-07-2025 36 Advised patient to take 25mg of spirolactone. Patient advised she has 50mg tablet and will cut them in 1/2 until they are gone, then she will call for a new script. [facility] Telephoneon 01-04-2025 Telephone [id number] Oliver Starks 1945 F Date Provider Department Center 01/04/2025 [id number]-EMWEPICOLKJOSEPH HARRY Family History Adopted: Yes Family history unknown: Yes Family Status - Relation Status Age at Mother Father Normal [facility] US axillaon 01-03-2025 US axilla [facility] [place] [address] [place] [address] Ultrasound Report Signed Patient: Breann Starks MR#: [id number] 171 : 1945 Acct:[id number] Age/Sex: 79 / F ADM Date: 01/03/25 Loc: Room: Type: [facility] RCR Attending Dr: Katharina Toledo APRN Ordering Provider: Juan Monahan II, DO Date of Service: 01/03/25 US/US axilla: R59.0 - Localized enlarged lymph nodes Copies to: CONSTANTINE Owen II, DO Left axillary ultrasound INDICATION: Lymphadenopathy COMPARISON: Axillary ultrasound 10/16/2024, CT shoulder 07/01/2024 FINDINGS: Multiple enlarged lymph nodes identified within the left axilla with cortical thickening largest lymph node measuring 4.4 x 1.4 x 1.8 cm. Largest lymph node on the prior examination measured 2.8 x 1.6 x 1.2 cm Cortical thickening and increased vascularity within the cortices of the lymph nodes on today's examination. US/US axilla IMPRESSION: Enlarged lymph nodes with cortical thickening and hyperemia persists and is a worrisome finding. Per patient request consultation with Dr. Benton was performed. Although the lymph nodes could be reactive due to possible infectious etiology, Underlying lymphoproliferative or neoplastic process should also be considered. Given the improved joint mobility, it is conceivable this could be reactive/inflammatory/ infectious in etiology. Please note that Percutaneous sampling could be beneficial to rule out possibility of an underlying lymphoproliferative/ma lignant process. Alternatively, short-term follow-up imaging in 3-6 months may be considered Impression dictated by: Dimitrios Blanco M.D.01/03/2025 3:42 PM Dictation Location: [facility] Tech: Ghazal Wilson Transcribed By: STAR 01/03/25 154 Dictated By: Dimitrios Blanco MD 01/03/25 153 Signed By: 01/03/25 1542 Normal [facility] Follow-Upon 01-01-2025 Follow-Up [id number] Oliver Starks da T 1945 F Date Provider Department Center 01/01/2025 DEREK NEUMANN ORTHO MPORTHO Family History Adopted: Yes Family history unknown: Yes Family Status - Relation Status Age at Mother Father Level of Service:99454 HI OFFICE/OUTPATIENT ESTABLISHED LOW MDM 20 MIN (GC) Reason for Visit and Comments: Follow-up [647154] Pain [136] Normal [facility] Office Visiton 12-24-2024 Follow-up visit [id number] Oliver Starks T 1945 F Date Provider Department Center 12/24/2024 KOLTON YAP AMISH Lubin Family History Adopted: Yes Family history unknown: Yes Family Status - Relation Status Age at Mother Father Level of Service:09470 HI OFFICE/OUTPATIENT ESTABLISHED MOD MDM 30 MIN Reason for Visit and Comments: Coronary Artery Disease [187] Hypertension [065986] Congestive Heart Failure [127] Hyperlipidemia [182] 3 month follow up [Other] [facility] ALL BASIC METABOLIC PANELon 12-21-2024 Anion gap [Moles/Vol] 11.7 mmol/L [facility] Calcium [Mass/Vol] 9.1 mg/dL 8.5 - 10. 1 mg/dL [facility] Chloride [Moles/Vol] 100 mmol/L 98 - 10 7 mmol/L [facility] CO2 [Moles/Vol] 27.4 mmol/L 21.0 - 32.0 mmol/L [facility] Creatinine [Mass/Vol] 0.98 mg/dL 0.55 - 1.02 mg/dL [facility] GFR/1.73 sq M.predicted CKD-EPI (S/P/Bld) [Vol rate/Area] >60 >=60 mL/min/1.73m 2 [facility] Glucose [Mass/Vol] 114 mg/dL High 74 - 106 mg/dL [facility] Interpretation and review of laboratory results Abnormal [facility] Potassium [Moles/Vol] 4.1 mmol/L 3.5 - 5.1 mmol/L [facility] Sodium [Moles/Vol] 135 mmol/L Low 136 - 145 mmol/L [facility] TBH EGFR-NON AF SAMMARINESE 55 Low >=60 mL/min/1.73m 2 [facility] Urea nitrogen [Mass/Vol] 22 mg/dL High 7.0 - 18.0 mg/dL [facility] Urea nitrogen/Creatinine [Mass ratio] 22.4 mg/mg [facility] C-REACTIVE PROTEINon 025 C REACTIVE PROTEIN (MG/L) IN SER/PLAS 9.6 mg/L High <=5.0 [facility] Comment on above: Result Comment: Test ing performed using a new methodology, turbidimetry. Normal ranges have been updated. Old normal range was <8 mg/L. Performed By: #### L [id number] ####[facility] ([facility])[address] [place] [address] CBC WITH AUTO DIFFERENTIALon 11-27-2024 Basophils (Bld) [#/Vol] 0.07 10*3/uL Normal 0.00-0.20 [facility] Comment on above: Performed By: #### L [id number] #### [facility] ([facility] [address] [place] [address] Basophils/100 WBC (Bld) 0.7 % Normal 0.0-1.0 [facility] Comment on above: Performed By: #### L [id number] #### [facility] ([facility]) [address] [place] [address] Eosinophils (Bld) [#/Vol] 0.13 10*3/uL Normal 0.00-0.50 [facility] Comment on above: Performed By: #### L [id number] #### [facility] ([facility]) [address] [place] [address] Eosinophils/100 WBC (Bld) 1.2 % Normal 0.0-6.0 [facility] Comment on above: Performed By: #### L [id number] #### [facility] ([facility]) [address] [address] Erythrocyte distribution width (RBC) [Ratio] 17.0 % High 11.5-15.0 [facility] Comment on above: Performed By: #### L [id number] #### [facility] ([facility]) [address] [place] [address] ERYTHROCYTE MEAN CORPUSCULAR HEMOGLOBIN CONCENTRATION (G/DL) BY AUTOMATED 30.8 g/dL Low 32.0-35.0 [facility] Comment on above: Performed By: #### L [id number] #### [facility] [address] [place] [address] Hematocrit (Bld) [Volume fraction] 38.6 % Normal 36.0-45.0 [facility] Comment on above: Performed By: #### L [id number] #### [facility] [address] [place] [address] Hemoglobin (Bld) [Mass/Vol] 11.9 g/dL Low 12.0-15.0 [facility] Comment on above: Performed By: #### L [id number] #### [facility] [address] [place] [address] Immature granulocytes (Bld) [#/Vol] 0.15 10*3/uL Normal 0.00-0.20 [facility] Comment on above: Performed By: #### L [id number] #### [facility] [address] [facility] [place] [address] Immature granulocytes/100 WBC (Bld) 1.4 % High 0.0-1.0 [facility] Comment on above: Performed By: #### L [id number] #### [facility] [address] [place] [address] Lymphocytes (Bld) [#/Vol] 2.18 10*3/uL Normal 1.20-4.00 [facility] Comment on above: Performed By: #### L [id number] #### [facility] ([facility]) [address] [place] [address] Lymphocytes/100 WBC (Bld) 20.4 % Normal 20.0-45.0 [facility] Comment on above: Performed By: #### L [id number] #### [facility] ([facility]) [address] [place] [address] MCH (RBC) [Entitic mass] 26.0 pg Low 27.0-33.0 [facility] Comment on above: Performed By: #### L [id number] #### [facility] ([facility]) [address] [place] [address] MCV (RBC) [Entitic vol] 84.5 fL Normal 82.0-98.0 [facility] Comment on above: Performed By: #### L [id number] #### [facility] ([facility]) [address] [place] [address] Monocytes (Bld) [#/Vol] 0.84 10*3/uL Normal 0.10-1.00 [facility] Comment on above: Performed By: #### L [id number] #### [facility] ([facility]) [address] [place] [address] Monocytes/100 WBC (Bld) 7.9 % Normal 5.0-12.0 [facility] Comment on above: Performed By: #### L [id number] #### [facility] ([facility]) [address] [place] [address] Neutrophils (Bld) [#/Vol] 7.33 10*3/uL Normal 1.60-7.60 [facility] Comment on above: Performed By: #### L [id number] #### [facility] ([facility]) [address] [place] [address] Neutrophils/100 WBC (Bld) 68.4 % Normal 40.0-72.0 [facility] Comment on above: Performed By: #### L [id number] #### [facility] ([facility]) [address] [place] [address] NRBC (PER 100 WBCS) BY AUTOMATED COUNT 0.0 % Normal 0 [facility] Comment on above: Performed By: #### L [id number] #### [facility] [address] [place] [address] PLATELETS (10*3/UL) IN BLOOD AUTOMATED COUNT 411 10*3/uL High 150-400 [facility] Comment on above: Performed By: #### L [id number] #### [facility] [address] [place] [address] RBC (Bld) [#/Vol] 4.57 10*6/uL Normal 3.80-5.00 [facility] Comment on above: Performed By: #### L [id number] #### [facility] [address] [place] [address] WBC (Bld) [#/Vol] 10.70 10*3/uL High 4.00-10.60 [facility] Comment on above: Performed By: #### L [id number] #### [facility]) [address] [place] [address] Follow-Upon 11-27-2024 Follow-Up [id number] Oliver Starks T 1945 F Date Provider Department Center 11/27/2024 438DEREK SALGADO MP ORTHO MPORTHO Family History Adopted: Yes Family history unknown: Yes Family Status - Relation Status Age at Mother Father Level of Service:82990 HI OFFICE/OUTPATIENT ESTABLISHED LOW MDM 20 MIN Reason for Visit and Comments: Follow-up [293776] Normal [facility] Labon 11-27-2024 Lab [id number] Oliver Starks da T 1945 F Date Provider Department Center 11/27/2024 2244-[facility] MP LAB RESOURCE MP DRAW Medical Pavi Family History Adopted: Yes Family history unknown: Yes Family Status - Relation Status Age at Mother Father Normal [facility] SEDIMENTATION RATEon 025 SEDIMENTATION RATE, ERYTHROCYTE 96 mm/hr High <30 [facility] Comment on above: Performed By: #### L [id number] #### [facility] [address] [place] [address] Orders Onlyon 11-19-2024 Orders Only [id number] Oliver Starks da T 1945 F Date Provider Department Center 11/19/2024 JAMES RODRIGUEZ MP ORTHO MPORTHO Family History Adopted: Yes Family history unknown: Yes Family Status - Relation Status Age at Mother Father [facility] Orders Onlyon 11-16-2024 Orders Only [id number] Oliver Starks da T 1945 F Date Provider Department Center 11/16/2024 [id number]-ZZGHAEZHYSZUIVAN COHEN ORTHO MPORTHO Family History Adopted: Yes Family history unknown: Yes Family Status - Relation Status Age at Mother Father [facility] 36on 11-15-2024 36 Patient was informed and she is going to [address] Carlos d and states they do not have a radiologist to do the aspiration for the order sent over by Dr. Holt and patient will have to go somewhere else. Normal [facility] BODY FLUID CULTUREon 025 Bacteria identified Cx Nom (Unsp spec) STREPTOCOCCUS SANGUINIS Abnormal [facility] Comment on above: Result Comment: Isol ated from Broth Culture Streptococcus sanguinis Presumptive Identification Performed By: #### L [id number] ####[facility] [place] [address] GRAM STAIN RESULT Normal [facility] Comment on above: Result Comment: Many Polymorphonuclear leukocytes No organisms seen Performed By: #### L [id number] ####[facility] ([facility])[address] [place] [address] Office Visiton 11-13-2024 Follow-up visit [id number] Oliver Starks da T 1945 F Date Provider Department Center 11/13/2024 Kyle-DEREK HOLT MP ORTHO MPORTHO Family History Adopted: Yes Family history unknown: Yes Family Status - Relation Status Age at Mother Father Level of Service:85874 HI OFFICE/OUTPATIENT NEW LOW MDM 30 MINUTES (25,GC) Reason for Visit and Comments: Pain [136] Normal [facility] Orders Onlyon 11-13-2024 Orders Only [id number] Oliver Starks 1945 F Date Provider Department Center 11/13/[id number]-NRWNEIQHHMARIELOS MARY MP ORTHO MPORTHO Family History Adopted: Yes Family history unknown: Yes Family Status - Relation Status Age at Mother Father Normal [facility] 36on 11-08-2024 36 Patient was schedule Normal [facility] 36 Patient needs an elisabet t layla poss infection per dr cardenas. DIGITAL ACCOUNT COORDINATOR to dr holt. Normal [facility] Anisocytosis LM Ql (Bld)Orde red By: Sakina Cardenas on 10-24-2024 Anisocytosis Ql (Bld) Anisocytosis [Presence] in Blood by Light microscopy [facility] Basophils Auto (Bld) [#/Vol] Ordered By: Sakina Cardenas on 10-24-2024 Basophils (Bld) [#/Vol] Automated basophil count [facility] Basophils/100 WBC Auto (Bld) Ordered By: Sakina Cardenas on 10-24-2024 Basophils/100 WBC (Bld) Automated basophil % [facility] Basophils/100 WBC Manual cnt (Bld)Ordered By: Sakina Cardenas on 10-24-2024 Basophils/100 WBC (Bld) Basophils/100 leukocytes in Blood by Manual count 0-2 [facility] C reactive protein [Mass/vol ume] in Serum or PlasmaOrdered By: Sakina Cardenas on 10-24-2024 CRP [Mass/Vol] C reactive protein [Mass/volume] in Serum or Plasma High 0.0-0.5 [facility] C-Reactive Proteinon 025 C-Reactive Protein 1.4 mg/dL High 0.0-0.5 [facility] Comment on above: Result Comment: PERF ORMED BY: [facility] [address] [place] [address] PATHOLOGIST CHIEF DOG LICENSE INSPECTOR KATHLEEN RAMOS M.D. Performed By: #### C RP ####[address] [address] [facility] CRP [Mass/Vol]on 10-24-2024 C-REACTIVE PROTEIN 1.4 mg/dL High 0.0 - 0.5 mg/dL [facility] Interpretation and review of laboratory results Abnormal [facility] Diff and CBCon 10-24-2024 Anisocytosis Ql (Bld) Slight Normal [facility] Comment on above: Performed By: #### D IFF CBC, ESR ####[address] [address] [facility] Basophils/100 WBC (Bld) 2 % Normal 0-2 [facility] Comment on above: Performed By: #### D IFF CBC, ESR ####[place] [id number] [facility] Erythrocyte distribution width (RBC) [Ratio] 23.9 % High 11.9-15.3 [facility] Comment on above: Performed By: #### D IFF CBC, ESR ####[place] [id number] [facility] Giant Platelet Tally 1 /100{WBC} Normal [facility] Comment on above: Performed By: #### D IFF CBC, ESR ####[place] [address] [place] [address] [facility] Hematocrit (Bld) [Volume fraction] 35.1 % Normal 34.0-46.4 [facility] Comment on above: Performed By: #### D IFF CBC, ESR ####[address] [address] [facility] Hemoglobin (Bld) [Mass/Vol] 11.4 g/dL Low 11.8-15.4 [facility] Comment on above: Performed By: #### D IFF CBC, ESR ####[address] [address] [facility] Hypochromasia Slight Normal [facility] Comment on above: Performed By: #### D IFF CBC, ESR ####[address] [place] [address] [place] Lymphocytes/100 WBC (Bld) 19 % Normal 18-42 [facility] Comment on above: Performed By: #### D IFF CBC, ESR ####[address] MCH (RBC) [Entitic mass] 26.9 pg Normal 24.7-34.3 [facility] Comment on above: Performed By: #### D IFF CBC, ESR ####[address] MCV (RBC) [Entitic vol] 83.2 fL Normal 80-100 [facility] Comment on above: Performed By: #### D IFF CBC, ESR ####[address] Mean Corpuscular HGB Conc 32.4 g/dL Normal 32.0-35.0 [facility] Comment on above: Performed By: #### D IFF CBC, ESR ####[address] Monocytes/100 WBC (Bld) 6 % Normal 2-11 [facility] Comment on above: Performed By: #### D IFF CBC, ESR ####[place] [id number] [facility] Platelet Estimate Normal Normal Normal [facility] Comment on above: Performed By: #### D IFF CBC, ESR ####[place] [id number] [facility] Platelet mean volume (Bld) [Entitic vol] 7.0 fL Normal 6.3-10.7 [facility] Comment on above: Performed By: #### D IFF CBC, ESR ####[place] [id number] [facility] Platelet Morphology Normal Normal Normal [facility] Comment on above: Performed By: #### D IFF CBC, ESR ####[place] [id number] [facility] Platelets (Bld) [#/Vol] 403 10*3/uL Normal 150-450 [facility] Comment on above: Performed By: #### D IFF CBC, ESR ####[place] [id number] [place] [id number] [facility] Polychromasia Moderate Normal [facility] Comment on above: Performed By: #### D IFF CBC, ESR ####[place] [id number] [place] [id number] [facility] RBC (Bld) [#/Vol] 4.21 10*6/uL Normal 3.60-5.00 [facility] Comment on above: Performed By: #### D IFF CBC, ESR ####[place] [id number] [place] [id number] [facility] RBC morphology finding Nom (Bld) Normal Normal Normal [facility] Comment on above: Performed By: #### D IFF CBC, ESR ####[place] [id number] Segmented neutrophils/100 WBC (Bld) 73 % High 50-70 [facility] Comment on above: Performed By: #### D IFF CBC, ESR ####[place] [id number] [place] [id number] [facility] WBC (Bld) [#/Vol] 11.0 10*3/uL Normal 3.8-11.6 [facility] Comment on above: Performed By: #### D IFF CBC, ESR ####[place] [id number] [facility] Eosinophils Auto (Bld) [#/Vo l]Ordered By: Sakina Cardenas on 10-24-2024 Eosinophils (Bld) [#/Vol] Automated eosinophil count [facility] Eosinophils/100 WBC Auto (Bl d)Ordered By: Sakina Cardenas on 10-24-2024 Eosinophils/100 WBC (Bld) Automated eosinophil % [facility] Erythrocyte Sedimentation Ra aren 10-24-2024 ESR (Bld) [Velocity] 104 mm/h High 0-29 [facility] Comment on above: Result Comment: PERF ORMED BY: [facility] [address] [place] [id number] PATHOLOGIST CHIEF DOG LICENSE INSPECTOR KATHLEEN RAMOS M.D. Performed By: #### D IFF CBC, ESR ####[facility] [id number] [place] [address] [facility] Erythrocyte distribution wid th Auto (RBC) [Ratio]Ordered By: Sakina Cardenas on 10-24-2024 Erythrocyte distribution width (RBC) [Ratio] Erythrocyte distribution width [Ratio] by Automated count High 11.9-15.3 [facility] Erythrocyte morphology findi ng [Identifier] in BloodOrdered By: Sakina Cardenas on 10-24-2024 RBC morphology finding Nom (Bld) RBC morphology Normal [facility] Erythrocyte sedimentation ra te by Photometric methodOrdered By: Sakina Cardenas on 10-24-2024 ESR Photometric method (Bld) [Velocity] Erythrocyte sedimentation rate by Photometric method High 0-29 [facility] Giant platelets/100 leukocyt es [Ratio] in Blood by Manual countOrdered By: Sakina Cardenas on 10-24-2024 Giant platelets/100 WBC Manual cnt (Bld) [Ratio] Giant platelets/100 leukocytes [Ratio] in Blood by Manual count [facility] Hematocrit Auto (Bld) [Volum e fraction]Ordered By: Sakina Cardenas on 10-24-2024 Hematocrit (Bld) [Volume fraction] Hematocrit [Volume Fraction] of Blood by Automated count 34.0-46.4 [facility] Hemoglobin [Mass/volume] in BloodOrdered By: Sakina Cardenas on 10-24-2024 Hemoglobin (Bld) [Mass/Vol] Hemoglobin [Mass/volume] in Blood Low 11.8-15.4 [facility] Hypochromia LM Ql (Bld)Order ed By: Sakina Cardenas on 10-24-2024 Hypochromia Ql (Bld) Hypochromia [Presen ce] in Blood by Light microscopy [facility] Laboratory - Hematology and Cell countson 10-24-2024 Erythrocyte distribution width (RBC) [Ratio] 23.9 % High 11.9 - 15.3 % [facility] ESR (Bld) [Velocity] 104 mm/h High 0 - 29 [facility] Hematocrit (Bld) [Volume fraction] 35.1 % 34.0 - 46.4 % [facility] Hemoglobin (Bld) [Mass/Vol] 11.4 g/dL Low 11.8 - 15.4 g/dL [facility] MCH (RBC) [Entitic mass] 26.9 pg 24.7 - 34.3 pg [facility] MCHC (RBC) [Mass/Vol] 32.4 g/dL 32.0 - 35.0 g/dL [facility] MCV (RBC) [Entitic vol] 83.2 fL 80 - 100 fL [facility] Platelet mean volume (Bld) [Entitic vol] 7 fL 6.3 - 10.7 fL [facility] Platelets (Bld) [#/Vol] 403 10*3/uL 150 - 450 10*3/uL [facility] WBC (Bld) [#/Vol] 11 10*3/uL 3.8 - 11.6 10*3/uL [facility] Laboratory - Urinalysison RBC LM.HPF (Urine sed) [#/Area] 4.21 10*6/uL 3.60 - 5.00 10*6/uL [facility] WBC LM.HPF (Urine sed) [#/Area] 11 10*3/uL 3.8 - 11.6 10*3/uL [facility] Leukocytes [#/volume] correc aristeo for nucleated erythrocytes in Blood by Automated counOrdered By: Sakina Cardenas on 10-24-2024 WBC corrected for nucl RBC Auto (Bld) [#/Vol] Leukocytes [#/volume] corrected for nucleated erythrocytes in Blood by Automated coun 3.8-11.6 [facility] Lymphocytes Auto (Bld) [#/Vo l]Ordered By: Sakina Cardenas on 10-24-2024 Lymphocytes (Bld) [#/Vol] Lymphocytes [#/volume] in Blood by Automated count [facility] Lymphocytes/100 WBC Auto (Bl d)Ordered By: Sakina Cardenas on 10-24-2024 Lymphocytes/100 WBC (Bld) Lymphocytes/100 leukocytes in Blood by Automated count [facility] Lymphocytes/100 WBC Manual c nt (Bld)Ordered By: Sakina Cardenas on 10-24-2024 Lymphocytes/100 WBC (Bld) Lymphocytes/100 leukocytes in Blood by Manual count 18-42 [facility] MCH Auto (RBC) [Entitic mass ]Ordered By: Sakina Cardenas on 10-24-2024 MCH (RBC) [Entitic mass] MCH [Entitic mass] by Automated count 24.7-34.3 [facility] MCHC Auto (RBC) [Mass/Vol]Or dered By: Sakina Cardenas on 10-24-2024 MCHC (RBC) [Mass/Vol] MCHC [Mass/volume] by Automated count 32.0-35.0 [facility] MCV Auto (RBC) [Entitic vol] Ordered By: Sakina Cardenas on 10-24-2024 MCV (RBC) [Entitic vol] MCV [Entitic volume] by Automated count 80-100 [facility] Monocytes Auto (Bld) [#/Vol] Ordered By: Sakina Cardenas on 10-24-2024 Monocytes (Bld) [#/Vol] Automated blood monocyte count [facility] Monocytes/100 WBC Auto (Bld) Ordered By: Sakina Cardenas on 10-24-2024 Monocytes/100 WBC (Bld) Automated monocyte % [facility] Monocytes/100 WBC Manual cnt (Bld)Ordered By: aSkina Cardenas on 10-24-2024 Monocytes/100 WBC (Bld) Monocytes/100 leukocytes in Blood by Manual count 2-11 [facility] Neutrophils Auto (Bld) [#/Vo l]Ordered By: Sakina Cardenas on 10-24-2024 Neutrophils (Bld) [#/Vol] Neutrophils [#/volume] in Blood by Automated count [facility] Neutrophils/100 WBC Auto (Bl d)Ordered By: Sakina Cardenas on 10-24-2024 Neutrophils/100 WBC (Bld) Automated neutrophil % [facility] No Panel Informationon 10-24 Interpretation and review of laboratory results Abnormal [facility] Nucleated erythrocytes [Pres ence] in Blood by Automated countOrdered By: Sakina Cardenas on 10-24-2024 Nucleated RBC Auto Ql (Bld) Nucleated erythrocytes [Presence] in Blood by Automated count [facility] Platelet adequacy [Presence] in Blood by Light microscopyOrdered By: Sakina Cardenas on 10-24-2024 Platelets LM Ql (Bld) Platelet adequacy [Presence] in Blood by Light microscopy Normal [facility] Platelet mean volume Auto (B ld) [Entitic vol]Ordered By: Sakina Cardenas on 10-24-2024 Platelet mean volume (Bld) [Entitic vol] Platelet mean volume [Entitic volume] in Blood by Automated count 6.3-10.7 [facility] Platelet morphology finding [Identifier] in BloodOrdered By: Sakina Cardenas on 10-24-2024 Platelet morphology finding Nom (Bld) Platelet morphology finding [Identifier] in Blood Normal [facility] Platelets Auto (Bld) [#/Vol] Ordered By: Sakina Cardenas on 10-24-2024 Platelets (Bld) [#/Vol] Platelets [#/volume] in Blood by Automated count 150-450 [facility] Polychromasia [Presence] in Blood by Light microscopyOrdered By: Sakina Cardenas on 10-24-2024 Polychromasia LM Ql (Bld) Polychromasia [Presence] in Blood by Light microscopy [facility] RBC Auto (Bld) [#/Vol]Ordere d By: Sakina Cardenas on 10-24-2024 RBC (Bld) [#/Vol] Erythrocytes [#/volume] in Blood by Automated count 3.60-5.00 [facility] Segmented neutrophils/100 WB C Manual cnt (Bld)Ordered By: Sakina Cardenas on 10-24-2024 Segmented neutrophils/100 WBC (Bld) Manual blood segmented neutrophils/100 leukocytes High 50-70 [facility] WBC Auto (Bld) [#/Vol]Ordere d By: Sakina Cardenas on 10-24-2024 WBC (Bld) [#/Vol] Leukocytes [#/volume ] in Blood by Automated count 3.8-11.6 [facility] MM diagnostic mammo BI w/CAD on 10-16-2024 MM diagnostic mammo BI w/CAD [facility] [place] [address] Ultrasound Report Signed Patient: Breann Starks MR#: [id number] : 1945 Acct:[id number] Age/Sex: 78 / F ADM Date: 10/16/24 Loc: [facility] Room: Type: [facility] Attending Dr: Dmitriy Duque DO Ordering Provider: Dmitriy Duque DO Date of Service: 10/16/24 US/US axilla: R92.8 ([id number]) MM/MM diagnostic mammo BI w/CAD: ENLARGED LT [...] grounds. Impression dictated by: Francisco J Benton Jr. D.OMeena10/16/2024 2:20 PM Dictation Location: [facility] Tech: Ghazal Barber Transcribed By: STAR 10/16/24 1420 Dictated By: Francisco J Benton Jr, 10/16/24 1343 Signed By: 10/16/24 1420 Normal [facility] 36on 10-11-2024 36 Regarding labs [...] BMP in 1 week. 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 She verbalized understanding. Normal [facility] CA ECHO DOPPLER COMPLETEon 0 10-09-2024 [place] [address] Cardiology Report Signed Patient: BREANN STARKS MR#: [id number] : 1945 Acct:[id number] Age/Sex: 78 / F ADM Date: 10/09/24 Loc: CARD Attending Dr: Kolton Altman M.D. Ordering Physician: Kolton Altman M.D. Date of Service: 10/09/24 Procedure(s): CA echo doppler complete Accession Number(s): [id number] cc: RENNY HANSEN ; Kolton Altman M.D. Patient Name: BREANN STARKS MR#: [id number] : 1945 Exam Date: 10/09/2024 Ordering Doctor: DR. KOLTON ALTMAN M.D. ECHOCARDIOGRAM REPORT PROCEDURE: CA ECHO DOPPLER [...] Area (VTI): 1.49 cm2, 1.49 cm2 Deceleration Crenshaw: 1.68 m/s2 Pressure Half-Time: 622.32 ms Peak [...] by: Sakina Evans (more content not included)... [facility] Radiology, Radiologist, MD - 10/09/2024 [place] [address] Cardiology Report Signed Patient: BREANN STARKS MR#: [id number] : 1945 Acct:[id number] Age/Sex: 78 / F ADM Date: 10/09/24 Loc: CARD Attending Dr: Kolton Altman M.D. Ordering Physician: Kolton Altman M.D. Date of Service: 10/09/24 Procedure(s): CA echo doppler complete Accession Number(s): [id number] cc: RENNY HANSEN ; Kolton Altman M.D. Patient Name: BREANN STARKS MR#: [id number] : 1945 Exam Date: 10/09/2024 Ordering Doctor: DR. KOLTON ALTMAN M.D. ECHOCARDIOGRAM REPORT PROCEDURE: CA ECHO DOPPLER [...] Area (VTI): 1.49 cm2, 1.49 cm2 Deceleration Crenshaw: 1.68 m/s2 Pressure Half-Time: 622.32 ms Peak [...] 110.44 ml, 110.44 ml Dictated by: Sakina Slaazar M.D. on 10/09/2024 at 18:40 Approved by: Sakina Salazar M.D. on 10/09/2024 at 18:45 Dictated By: SAKINA SALAZAR Signed By: 10/09/241846 DD/ 44 TD/TT: Nut Tapper: [facility] Radiology Study observation (narrative) [facility] CA ECHO DOPPLER COMPLETEOrde red By: Radiologist Radiology on 10-09-2024 [facility] Work Phone: ALL BASIC METABOLIC PANELon 10-03-2024 Anion gap [Moles/Vol] 12.4 mmol/L NO [facility] Calcium [Mass/Vol] 9.2 mg/dL 8.5 - 10. 1 mg/dL [facility] Chloride [Moles/Vol] 104 mmol/L 98 - 10 7 mmol/L [facility] CO2 [Moles/Vol] 27.8 mmol/L 21.0 - 32.0 mmol/L [facility] Creatinine [Mass/Vol] 0.73 mg/dL 0.55 - 1.02 mg/dL [facility] GFR/1.73 sq M.predicted CKD-EPI (S/P/Bld) [Vol rate/Area] >60 >=60 mL/min/1.73m 2 [facility] Glucose [Mass/Vol] 97 mg/dL 74 - 106 mg/dL [facility] Potassium [Moles/Vol] 4.2 mmol/L 3.5 - 5.1 mmol/L [facility] Sodium [Moles/Vol] 140 mmol/L 136 - 145 mmol/L [facility] TBH EGFR-NON AF SAMMARINESE >60 >=60 mL/min/1.73m 2 [facility] Urea nitrogen [Mass/Vol] 16 mg/dL 7.0 - 18.0 mg/dL [facility] Urea nitrogen/Creatinine [Mass ratio] 21.9 mg/mg [facility] ALL LIPID PROFILE (FASTING)o n 10-03-2024 CHOL HDL RATIO 2.2 [facility] Comment on above: 3.3 - 4.4 LOW RISK 4.4 - 7.1 AVERAGE RISK 7.1 - 11.0 MODERATE RISK >11.0 HIGH RISK Cholesterol [Mass/Vol] 130 mg/dL NINF - 200 mg/dL [facility] Cholesterol in HDL [Mass/Vol] 59 mg/dL 40 - 60 mg/dL [facility] Comment on above: > or =60 mg/dl - LOW CARDIOVASCULAR RISK <40 mg/dl - HIGH CARDIOVASCULAR RISK Magnesium [Mass/Vol] 56.8 mg/dL [facility] Comment on above: <100 mg/dl OPTIMAL 100-129 mg/dl NEAR OR ABOVE OPTIMAL 130-159 mg/dl BORDERLINE HIGH 160-189 mg/dl HIGH >190 mg/dl VERY HIGH Magnesium [Mass/Vol] 14.2 mg/dL [facility] Triglyceride [Mass/Vol] 71 mg/dL NINF - 150 mg/dL [facility] No Panel Informationon 10-03 [facility] Anisocytosis LM Ql (Bld)Orde red By: Katharina Toledo on 10-02-2024 Anisocytosis Ql (Bld) Anisocytosis [Presence] in Blood by Light microscopy [facility] Basophils Auto (Bld) [#/Vol] Ordered By: Katharina Toledo on 10-02-2024 Basophils (Bld) [#/Vol] Automated basophil count 0.0-0.2 [facility] Basophils/100 WBC Auto (Bld) Ordered By: Katharina Toledo on 10-02-2024 Basophils/100 WBC (Bld) Automated basophil % . [facility] CT shoulder LT w conon 10-02 CT shoulder LT w con [facility] [place] [address] CT Scan Report Signed Patient: Breann Starks MR#: [id number] : 1945 Acct:[id number] Age/Sex: 78 / F ADM Date: 10/02/24 Loc: Room: Type: [facility] Attending Dr: Katharina Toledo APRN Copies to: [...] Etienne Rhodes M.D.10/02/2024 4:14 PM Dictation Location: [place] [address] Transcribed By: [facility] 10/02/24 1614 Dictated By: Etienne Rhodes DO 10/02/24 161 Signed By: 10/02/24 1614 Normal [facility] Creatinine (Bld) [Mass/Vol]O rdered By: Katharina Tre on 10-02-2024 Creatinine [Mass/Vol] Whole blood creati nine measurement 0.6-1.3 [facility] Comment on above: ER/ESD physician is notified/shown all ISTAT results.Critical values may be confirmed by laboratory testing ifdeemed necessary by ER attending doctor. Eosinophils Auto (Bld) [#/Vo l]Ordered By: Katharina Toledo on 10-02-2024 Eosinophils (Bld) [#/Vol] Automated eosinophil count 0.0-0.45 [facility] Eosinophils/100 WBC Auto (Bl d)Ordered By: Katharina Tre on 10-02-2024 Eosinophils/100 WBC (Bld) Automated eosinophil % . [facility] Erythrocyte distribution wid th Auto (RBC) [Ratio]Ordered By: Katharina Toledo on 10-02-2024 Erythrocyte distribution width (RBC) [Ratio] Erythrocyte distribution width [Ratio] by Automated count High 11.9-15.3 [facility] Erythrocyte morphology findi ng [Identifier] in BloodOrdered By: Katharina Toledo on 10-02-2024 RBC morphology finding Nom (Bld) RBC morphology [facility] Ferritinon 10-02-2024 Ferritin [Mass/Vol] 54.8 ng/mL Normal 11.0-306.8 [facility] Comment on above: Result Comment: PERF ORMED BY: [facility] [address] [place] [address] PATHOLOGIST CHIEF DOG LICENSE INSPECTOR KATHELEN RAMOS M.D. Performed By: #### S CAN CBC, FE and TIBC, ARISTIDES ####[facility] [id number] [place] [address] [facility] Ferritin [Mass/volume] in Se rum or PlasmaOrdered By: Katharina Toledo on 10-02-2024 Ferritin [Mass/Vol] Ferritin [Mass/volum e] in Serum or Plasma 11.0-306.8 [facility] Hematocrit Auto (Bld) [Volum e fraction]Ordered By: Katharina Toledo on 10-02-2024 Hematocrit (Bld) [Volume fraction] Hematocrit [Volume Fraction] of Blood by Automated count Low 34.0-46.4 [facility] Hemoglobin [Mass/volume] in BloodOrdered By: Katharina Tre on 10-02-2024 Hemoglobin (Bld) [Mass/Vol] Hemoglobin [Mass/volume] in Blood Low 11.8-15.4 [facility] Hypochromia LM Ql (Bld)Order ed By: Katharina Tre on 10-02-2024 Hypochromia Ql (Bld) Hypochromia [Presen ce] in Blood by Light microscopy [facility] ISTAT XRAY CREon 10-02-2024 Creatinine [Mass/Vol] 0.7 mg/dL 0.6 - 1.3 mg/dL [facility] Comment on above: ER/ESD physician is notified/shown all ISTAT results. Critical values may be confirmed by laboratory testing if deemed necessary by ER attending doctor. ISTAT GFR [facility] ISTAT XRay CREon 10-02-2024 Creatinine [Mass/Vol] 0.7 mg/dL Normal 0.6-1.3 [facility] Comment on above: Result Comment: ER/E SD physician is notified/shown all ISTAT results. Critical values may be confirmed by laboratory testing if deemed necessary by ER attending doctor. Performed By: #### I SCRE ####[place] [id number] [place] [id number] [facility] ISTAT GFR >60.0 Normal [facility] Comment on above: Result Comment: PERF ORMED BY: [facility] [address] [place] [address] PATHOLOGIST CHIEF DOG LICENSE INSPECTOR KATHLEEN RAMOS M.D. Performed By: #### I SCRE ####[place] [id number] [place] [id number] [facility] Iron [Mass/volume] in Serum or PlasmaOrdered By: Katharina Toledo on 10-02-2024 Iron [Mass/Vol] Iron [Mass/volume] i n Serum or Plasma Low 50-212 [facility] Iron and TIBC Profileon 09-13 % Iron Saturation 8.7 % Low 20-50 [facility] Comment on above: Performed By: #### S CAN CBC, FE and TIBC, ARISTIDES ####[facility] [id number] [place] [address] [facility] Iron [Mass/Vol] 36 ug/dL Low 50-212 [facility] Comment on above: Performed By: #### S CAN CBC, FE and TIBC, ARISTIDES ####[facility] [id number] [place] [address] [facility] Total Iron Binding Capacity 413 ug/dL Normal 255-450 [facility] Comment on above: Performed By: #### S CAN CBC, FE and TIBC, ARISTIDES ####[facility] [id number] [place] [address] [facility] Transferrin [Mass/Vol] 295 mg/dL Normal 203-362 [facility] Comment on above: Performed By: #### S CAN CBC, FE and TIBC, ARISTIDES ####[facility] [id number] [place] [address] [facility] Leukocytes [#/volume] correc aristeo for nucleated erythrocytes in Blood by Automated counOrdered By: Katharina Toledo on 10-02-2024 WBC corrected for nucl RBC Auto (Bld) [#/Vol] Leukocytes [#/volume] corrected for nucleated erythrocytes in Blood by Automated coun 3.8-11.6 [facility] Lymphocytes Auto (Bld) [#/Vo l]Ordered By: Katharina Toledo on 10-02-2024 Lymphocytes (Bld) [#/Vol] Lymphocytes [#/volume] in Blood by Automated count 1.00-4.8 [facility] Lymphocytes/100 WBC Auto (Bl d)Ordered By: Katharina Toledo on 10-02-2024 Lymphocytes/100 WBC (Bld) Lymphocytes/100 leukocytes in Blood by Automated count . [facility] MCH Auto (RBC) [Entitic mass ]Ordered By: Katharina Toledo on 10-02-2024 MCH (RBC) [Entitic mass] MCH [Entitic mass] by Automated count 24.7-34.3 [facility] MCHC Auto (RBC) [Mass/Vol]Or dered By: Katharina Toledo on 10-02-2024 MCHC (RBC) [Mass/Vol] MCHC [Mass/volume] by Automated count 32.0-35.0 [facility] MCV Auto (RBC) [Entitic vol] Ordered By: Katharina Toledo on 10-02-2024 MCV (RBC) [Entitic vol] MCV [Entitic volume] by Automated count 80-100 [facility] Microcytes LM Ql (Bld)Ordere d By: Katharina Toledo on 10-02-2024 Microcytes Ql (Bld) Microcytes [Presence ] in Blood by Light microscopy [facility] Monocytes Auto (Bld) [#/Vol] Ordered By: Katharina Toledo on 10-02-2024 Monocytes (Bld) [#/Vol] Automated blood monocyte count 0.0-0.8 [facility] Monocytes/100 WBC Auto (Bld) Ordered By: Katharina Toledo on 10-02-2024 Monocytes/100 WBC (Bld) Automated monocyte % . [facility] Neutrophils Auto (Bld) [#/Vo l]Ordered By: Katharina Toledo on 10-02-2024 Neutrophils (Bld) [#/Vol] Neutrophils [#/volume] in Blood by Automated count 1.8-7.7 [facility] Neutrophils/100 WBC Auto (Bl d)Ordered By: Katharina Toledo on 10-02-2024 Neutrophils/100 WBC (Bld) Automated neutrophil % . [facility] No Panel InformationOrdered By: Katharina Toledo on 10-02-2024 Bedside Estimated GFR (eGFR) > 60.0 [facility] Nucleated erythrocytes [Pres ence] in Blood by Automated countOrdered By: Katharina Toledo on 10-02-2024 Nucleated RBC Auto Ql (Bld) Nucleated erythrocytes [Presence] in Blood by Automated count 0-0.5 [facility] Platelet adequacy [Presence] in Blood by Light microscopyOrdered By: Katharina Toledo on 10-02-2024 Platelets LM Ql (Bld) Platelet adequacy [Presence] in Blood by Light microscopy Normal [facility] Platelet mean volume Auto (B ld) [Entitic vol]Ordered By: Katharina Toledo on 10-02-2024 Platelet mean volume (Bld) [Entitic vol] Platelet mean volume [Entitic volume] in Blood by Automated count 6.3-10.7 [facility] Platelet morphology finding [Identifier] in BloodOrdered By: Katharina Tre on 10-02-2024 Platelet morphology finding Nom (Bld) Platelet morphology finding [Identifier] in Blood Normal [facility] Platelets Auto (Bld) [#/Vol] Ordered By: Katharina Tre on 10-02-2024 Platelets (Bld) [#/Vol] Platelets [#/volume] in Blood by Automated count 150-450 [facility] Polychromasia [Presence] in Blood by Light microscopyOrdered By: Katharina Tre on 10-02-2024 Polychromasia LM Ql (Bld) Polychromasia [Presence] in Blood by Light microscopy [facility] RBC Auto (Bld) [#/Vol]Ordere d By: Katharina Tre on 10-02-2024 RBC (Bld) [#/Vol] Erythrocytes [#/volume] in Blood by Automated count 3.60-5.00 [facility] Scan and CBCon 10-02-2024 Anisocytosis Ql (Bld) Marked Normal [facility] Comment on above: Performed By: #### S CAN CBC, FE and TIBC, ARISTIDES ####[place] [id number] [place] [id number] [place] Basophils (Bld) [#/Vol] 0.1 10*3/uL Normal 0.0-0.2 [facility] Comment on above: Performed By: #### S CAN CBC, FE and TIBC, ARISTIDES ####[place] [id number] [place] Basophils/100 WBC (Bld) 0.8 % Normal . [facility] Comment on above: Performed By: #### S CAN CBC, FE and TIBC, ARISTIDES ####[facility] [place] [address] [place] Eosinophils (Bld) [#/Vol] 0.2 10*3/uL Normal 0.0-0.45 [facility] Comment on above: Performed By: #### S CAN CBC, FE and TIBC, ARISTIDES ####[place] [id number] [place] Eosinophils/100 WBC (Bld) 2.3 % Normal . [facility] Comment on above: Performed By: #### S CAN CBC, FE and TIBC, ARISTIDES ####[address] Erythrocyte distribution width (RBC) [Ratio] 29.3 % High 11.9-15.3 [facility] Comment on above: Performed By: #### S CAN CBC, FE and TIBC, ARISTIDES ####[address] Hematocrit (Bld) [Volume fraction] 33.0 % Low 34.0-46.4 [facility] Comment on above: Performed By: #### S CAN CBC, FE and TIBC, ARISTIDES ####[address] Hemoglobin (Bld) [Mass/Vol] 10.6 g/dL Low 11.8-15.4 [facility] Comment on above: Performed By: #### S CAN CBC, FE and TIBC, ARISTIDES ####[address] Hypochromasia Slight Normal [facility] Comment on above: Performed By: #### S CAN CBC, FE and TIBC, ARISTIDES ####[address] Lymphocytes (Bld) [#/Vol] 1.4 10*3/uL Normal 1.00-4.8 [facility] Comment on above: Performed By: #### S CAN CBC, FE and TIBC, ARISTIDES ####[address] Lymphocytes/100 WBC (Bld) 15.8 % Normal . [facility] Comment on above: Performed By: #### S CAN CBC, FE and TIBC, ARISTIDES ####[address] MCH (RBC) [Entitic mass] 26.6 pg Normal 24.7-34.3 [facility] Comment on above: Performed By: #### S CAN CBC, FE and TIBC, ARISTIDES ####[address] MCV (RBC) [Entitic vol] 83.1 fL Normal 80-100 [facility] Comment on above: Performed By: #### S CAN CBC, FE and TIBC, ARISTIDES ####[address] Mean Corpuscular HGB Conc 32.0 g/dL Normal 32.0-35.0 [facility] Comment on above: Performed By: #### S CAN CBC, FE and TIBC, ARISTIDES ####[address] Microcytosis Slight Normal [facility] Comment on above: Performed By: #### S CAN CBC, FE and TIBC, ARISTIDES ####[address] Monocytes (Bld) [#/Vol] 0.6 10*3/uL Normal 0.0-0.8 [facility] Comment on above: Performed By: #### S CAN CBC, FE and TIBC, ARISTIDES ####[address] Monocytes/100 WBC (Bld) 7.3 % Normal . [facility] Comment on above: Performed By: #### S CAN CBC, FE and TIBC, ARISTIDES ####[address] Neutrophils (Bld) [#/Vol] 6.4 10*3/uL Normal 1.8-7.7 [facility] Comment on above: Performed By: #### S CAN CBC, FE and TIBC, ARISTIDES ####[address] Neutrophils/100 WBC (Bld) 73.8 % Normal . [facility] Comment on above: Performed By: #### S CAN CBC, FE and TIBC, ARISTIDES ####[address] NRBC% 0.0 /100{WBC} Normal 0-0.5 [facility] Comment on above: Performed By: #### S CAN CBC, FE and TIBC, ARISTIDES ####[address] [address] [facility] Platelet Estimate Normal Normal Normal [facility] Comment on above: Performed By: #### S CAN CBC, FE and TIBC, ARISTIDES ####[address] [address] [facility] Platelet mean volume (Bld) [Entitic vol] 6.9 fL Normal 6.3-10.7 [facility] Comment on above: Performed By: #### S CAN CBC, FE and TIBC, ARISTIDES ####[address] [address] [facility] Platelet Morphology Normal Normal Normal [facility] Comment on above: Result Comment: PERF ORMED BY: [facility] [address] [place] [address] PATHOLOGIST CHIEF DOG LICENSE INSPECTOR KATHLEEN RAMOS M.D. Performed By: #### S CAN CBC, FE and TIBC, ARISTIDES ####[address] [address] [facility] Platelets (Bld) [#/Vol] 337 10*3/uL Normal 150-450 [facility] Comment on above: Performed By: #### S CAN CBC, FE and TIBC, ARISTIDES ####[address] [address] [facility] Polychromasia Slight Normal [facility] Comment on above: Performed By: #### S CAN CBC, FE and TIBC, ARISTIDES ####[address] [address] [facility] RBC (Bld) [#/Vol] 3.98 10*6/uL Normal 3.60-5.00 [facility] Comment on above: Performed By: #### S CAN CBC, FE and TIBC, ARISTIDES ####[address] [address] [facility] WBC (Bld) [#/Vol] 8.7 10*3/uL Normal 3.8-11.6 [facility] Comment on above: Performed By: #### S CAN CBC, FE and TIBC, ARISTIDES ####[facility] [id number] [place] [address] [facility] Serum or plasma iron binding capacity measurement (mass/volume)Ordered By: Katharina Toledo on 10-02-2024 Iron binding capacity [Mass/Vol] Iron binding capacity [Mass/volume] in Serum or Plasma 255-450 [facility] Serum or plasma iron saturat ion measurement (mass fraction)Ordered By: Katharina Toledo on 10-02-2024 Iron saturation [Mass fraction] Iron saturation [Mass Fraction] in Serum or Plasma Low 20-50 [facility] Transferrin [Mass/volume] in Serum or PlasmaOrdered By: Katharina Toledo on 10-02-2024 Transferrin [Mass/Vol] Transferrin [Mass/volume] in Serum or Plasma 203-362 [facility] WBC Auto (Bld) [#/Vol]Ordere d By: Katharina Toledo on 10-02-2024 WBC (Bld) [#/Vol] Leukocytes [#/volume ] in Blood by Automated count 3.8-11.6 [facility] Office Visiton 09-24-2024 Follow-up visit [id number] Oliver Starks 1945 F Date Provider Department Center 09/24/2024 [id number] HUMPHREY AMISH Lubin Family History Adopted: Yes Family history unknown: Yes Family Status - Relation Status Age at Mother Father Level of Service:99494 HI OFFICE/OUTPATIENT ESTABLISHED MOD MDM 30 MIN Reason for Visit and Comments: Atrial Fibrillation [80] - Denies palpitations, lightheadedness/syncop e, and bleeding on Eliquis. Congestive Heart Failure [127] severe pulmonary hypertension [Other] - Denies chest pain and SOB. Edema [[id number]] - NOT taking lasix currently due to no LE edema. Normal [facility] Urinalysis macro (dipstick) panel (U)on 09-19-2024 Bilirubin, UA Negative Negative - 4(70) +++ mg/dL [facility] Blood, UA Positive Negative - 50 Shadi/mcL [facility] Clarity, UA Cloudy [facility] Color, UA Dark Sara [facility] Glucose, UA Negative Negative - 1999(110) ++++ mg/dL [facility] Interpretation and review of laboratory results Abnormal [facility] Ketones, UA Positive Negative - 160(16) ++++ mg/dL [facility] Leukocytes, UA Moderate Negative - 500+++ Rosette/mcL [facility] Nitrite, UA Negative Negative - Positive [facility] pH, UA 5 5 - 9 [facility] Protein, UA 3+ Negative - 1999(20) ++++ mg/dL [facility] Spec Grav, UA 1.3 1 - 1.03 [facility] Urobilinogen, UA 0.2 0.2 - 12 mg/dL [facility] C reactive protein [Mass/vol ume] in Serum or PlasmaOrdered By: Pedro Pablo Cruz on 08-24-2024 CRP [Mass/Vol] C reactive protein [Mass/volume] in Serum or Plasma High 0.0-0.5 [facility] C-Reactive Proteinon 024 C-Reactive Protein 1.1 mg/dL High 0.0-0.5 [facility] Comment on above: Result Comment: PERF ORMED BY: [place] [address] PATHOLOGIST CHIEF DOG LICENSE INSPECTOR KATHLEEN RAMOS M.D. Performed By: #### C RP #### [address] CBC W Auto Differential pane l (Bld)on 08-24-2024 Basophils (Bld) [#/Vol] 0.1 10*3/uL 0.0 - 0.2 10*3/uL [facility] Basophils/100 WBC Manual cnt (Syn fld) 0.9 % . [facility] Eosinophils (Bld) [#/Vol] 0.2 10*3/uL 0.0 - 0.45 10*3/uL [facility] Eosinophils/100 WBC Manual cnt (Syn fld) 2.6 % . [facility] Erythrocyte distribution width (RBC) [Ratio] 19.3 % High 11.9 - 15.3 % [facility] Hematocrit (Bld) [Volume fraction] 28.2 % Low 34.0 - 46.4 % [facility] Hemoglobin (Bld) [Mass/Vol] 8.6 g/dL Low 11.8 - 15.4 g/dL [facility] Interpretation and review of laboratory results Abnormal [facility] Lymphocytes (Bld) [#/Vol] 2.1 10*3/uL 1.00 - 4.8 10*3/uL [facility] Lymphocytes/100 WBC Manual cnt (Syn fld) 23.5 % . [facility] MCH (RBC) [Entitic mass] 21.8 pg Low 24.7 - 34.3 pg [facility] MCHC (RBC) [Mass/Vol] 30.4 g/dL Low 32.0 - 35.0 g/dL [facility] MCV (RBC) [Entitic vol] 71.9 fL Low 80 - 100 fL [facility] Monocytes (Bld) [#/Vol] 0.6 10*3/uL 0.0 - 0.8 10*3/uL [facility] Monocytes+Macrophages /100 WBC Manual cnt (Syn fld) 6.8 % . [facility] Neutrophils (Bld) [#/Vol] 5.9 10*3/uL 1.8 - 7.7 10*3/uL [facility] Neutrophils/100 WBC Manual cnt (Syn fld) 66.2 % . [facility] NRBC 0 /100{WBC} 0 - 0.5 /100{WBC} [facility] Platelet mean volume (Bld) [Entitic vol] 6.9 fL 6.3 - 10.7 fL [facility] Platelets (Bld) [#/Vol] 345 10*3/uL 150 - 450 10*3/uL [facility] RBC LM.HPF (Urine sed) [#/Area] 3.93 10*6/uL 3.60 - 5.00 10*6/uL [facility] WBC (Bld) [#/Vol] 8.9 10*3/uL 3.8 - 11.6 10*3/uL [facility] WBC LM.HPF (Urine sed) [#/Area] 8.9 10*3/uL 3.8 - 11.6 10*3/uL [facility] Complete Blood Count Auto Di ffon 08-24-2024 Basophils (Bld) [#/Vol] 0.1 10*3/uL Normal 0.0-0.2 [facility] Comment on above: Result Comment: PERF ORMED BY: [place] [address] PATHOLOGIST CHIEF DOG LICENSE INSPECTOR KATHLEEN RAMOS M.D. Performed By: #### F ER, [id number], CBC, FE and TIBC #### [address] Basophils/100 WBC (Bld) 0.9 % Normal . [facility] Comment on above: Performed By: #### F ER, [id number], CBC, FE and TIBC #### [address] Eosinophils (Bld) [#/Vol] 0.2 10*3/uL Normal 0.0-0.45 [facility] Comment on above: Performed By: #### F ER, [id number], CBC, FE and TIBC #### [address] Eosinophils/100 WBC (Bld) 2.6 % Normal . [facility] Comment on above: Performed By: #### F ER, [id number], CBC, FE and TIBC #### [address] Erythrocyte distribution width (RBC) [Ratio] 19.3 % High 11.9-15.3 [facility] Comment on above: Performed By: #### F ER, [id number], CBC, FE and TIBC #### [address] Hematocrit (Bld) [Volume fraction] 28.2 % Low 34.0-46.4 [facility] Comment on above: Performed By: #### F ER, [id number], CBC, FE and TIBC #### [address] Hemoglobin (Bld) [Mass/Vol] 8.6 g/dL Low 11.8-15.4 [facility] Comment on above: Performed By: #### F ER, [id number], CBC, FE and TIBC #### [address] Lymphocytes (Bld) [#/Vol] 2.1 10*3/uL Normal 1.00-4.8 [facility] Comment on above: Performed By: #### F ER, [id number], CBC, FE and TIBC #### [address] Lymphocytes/100 WBC (Bld) 23.5 % Normal . [facility] Comment on above: Performed By: #### F ER, [id number], CBC, FE and TIBC #### [address] MCH (RBC) [Entitic mass] 21.8 pg Low 24.7-34.3 [facility] Comment on above: Performed By: #### F ER, [id number], CBC, FE and TIBC #### [address] MCV (RBC) [Entitic vol] 71.9 fL Low 80-100 [facility] Comment on above: Performed By: #### F ER, [id number], CBC, FE and TIBC #### [address] Mean Corpuscular HGB Conc 30.4 g/dL Low 32.0-35.0 [facility] Comment on above: Performed By: #### F ER, [id number], CBC, FE and TIBC #### [address] Monocytes (Bld) [#/Vol] 0.6 10*3/uL Normal 0.0-0.8 [facility] Comment on above: Performed By: #### F ER, [id number], CBC, FE and TIBC #### [address] Monocytes/100 WBC (Bld) 6.8 % Normal . [facility] Comment on above: Performed By: #### F ER, [id number], CBC, FE and TIBC #### [address] Neutrophils (Bld) [#/Vol] 5.9 10*3/uL Normal 1.8-7.7 [facility] Comment on above: Performed By: #### F ER, [id number], CBC, FE and TIBC #### [address] Neutrophils/100 WBC (Bld) 66.2 % Normal . [facility] Comment on above: Performed By: #### F ER, [id number], CBC, FE and TIBC #### [address] NRBC% 0.0 /100{WBC} Normal 0-0.5 [facility] Comment on above: Performed By: #### F ER, [id number], CBC, FE and TIBC #### [address] Platelet mean volume (Bld) [Entitic vol] 6.9 fL Normal 6.3-10.7 [facility] Comment on above: Performed By: #### F ER, [id number], CBC, FE and TIBC #### [address] Platelets (Bld) [#/Vol] 345 10*3/uL Normal 150-450 [facility] Comment on above: Performed By: #### F ER, [id number], CBC, FE and TIBC #### [address] RBC (Bld) [#/Vol] 3.93 10*6/uL Normal 3.60-5.00 [facility] Comment on above: Performed By: #### F ER, [id number], CBC, FE and TIBC #### [address] WBC (Bld) [#/Vol] 8.9 10*3/uL Normal 3.8-11.6 [facility] Comment on above: Performed By: #### F ER, [id number], CBC, FE and TIBC #### [address] Erythrocyte Sedimentation Ra aren 08-24-2024 ESR (Bld) [Velocity] 103 mm/h High 0-29 [facility] Comment on above: Result Comment: PERF ORMED BY: [place] [address] PATHOLOGIST CHIEF DOG LICENSE INSPECTOR KATHLEEN RAMOS M.D. Performed By: #### E SR #### [address] Erythrocyte sedimentation ra te by Photometric methodOrdered By: Pedro Pablo Cruz on 08-24-2024 ESR Photometric method (Bld) [Velocity] Erythrocyte sedimentation rate by Photometric method High 0-29 [facility] Ferritinon 08-24-2024 Ferritin [Mass/Vol] 8.6 ng/mL Low 11.0-306.8 [facility] Comment on above: Performed By: #### F ER, [id number], CBC, FE and TIBC #### [address] Folate [Mass/volume] in Seru m or PlasmaOrdered By: Katharina Toledo on 08-24-2024 Folate [Mass/Vol] Folate [Mass/volume] in Serum or Plasma >5.9 [facility] Comment on above: Folate reference ran ge: >5.9 ng/mlThe WHO technical consultation on folate and vitamin [id number] has determined that folate concentrations lessthan 4 ng/ml are considered deficient. Iron and TIBC Profileon 08-12 % Iron Saturation 3.2 % Low 20-50 [facility] Comment on above: Performed By: #### F ER, [id number], CBC, FE and TIBC #### [address] Iron [Mass/Vol] 14 ug/dL Low 50-212 [facility] Comment on above: Performed By: #### F ER, [id number], CBC, FE and TIBC #### [address] Total Iron Binding Capacity 437 ug/dL Normal 255-450 [facility] Comment on above: Performed By: #### F ER, [id number], CBC, FE and TIBC #### [address] Transferrin [Mass/Vol] 312 mg/dL Normal 203-362 [facility] Comment on above: Performed By: #### F ER, [id number], CBC, FE and TIBC #### [address] Vit. B12/Folate Profileon Cobalamin (Vitamin B12) [Mass/Vol] 417 pg/mL Normal 180-914 [facility] Comment on above: Performed By: #### F ER, [id number], CBC, FE and TIBC #### [address] Folate 28.0 ng/mL Normal >5.9 [facility] Comment on above: Result Comment: Nayely te reference range: >5.9 ng/ml The WHO technical consultation on folate and vitamin b12 deficiencies has determined that folate concentrations less than 4 ng/ml are considered deficient. PERFORMED BY: [place] [address] PATHOLOGIST CHIEF DOG LICENSE INSPECTOR KATHLEEN RAMOS M.D. Performed By: #### F ER, [id number], CBC, FE and TIBC #### [address] Vitamin B12 ser/plasOrdered By: Katharina Toledo on 08-24-2024 Cobalamin (Vitamin B12) [Mass/Vol] Vitamin B12 ser/plas 180-914 [facility] TRANSFERRINon 07-25-2024 Transferrin [Mass/Vol] 284 mg/dL 192 - 364 mg/dL [facility] Comment on above: Performed at: - Lab[address] [id number] Marketing Account Executive: Baudilio Givens PhD, Phone: [phone] [facility] ALL CBC WITH AUTO DIFFon BASOPHILS ABSOLUTE AUTO 0.1 [facility] Basophils/100 WBC (Bld) 0.9 % 0.2 - 2.0 % [facility] Eosinophils/100 WBC (Bld) 0.9 % 0.9 - 7.0 % [facility] Erythrocyte distribution width (RBC) [Ratio] 17.7 % High 11.0 - 15.0 % [facility] Hematocrit (Bld) [Volume fraction] 29.9 % Low 36.0 - 48.0 % [facility] Hemoglobin (Bld) [Mass/Vol] 8.7 g/dL Low 12.0 - 16.0 g/dL [facility] IMMATURE GRANULOCYTES ABS AUTO 0.03 [facility] Immature granulocytes/100 WBC (Bld) 0.3 % 0.0 - 0.5 % [facility] Interpretation and review of laboratory results Abnormal [facility] LYMPHOCYTES ABSOLUTE AUTO 1.4 [facility] Lymphocytes/100 WBC (Bld) 14.1 % Low 20.5 - 60.0 % [facility] MCH (RBC) [Entitic mass] 22.3 pg Low 26.7 - 34.0 pg [facility] MCHC (RBC) [Mass/Vol] 29.1 g/dL Low 29.9 - 35.2 g/dL [facility] MCV (RBC) [Entitic vol] 76.7 fL Low 81.0 - 99.0 fL [facility] MONOCYTES ABSOLUTE AUTO 0.7 [facility] Monocytes/100 WBC (Bld) 6.6 % 1.7 - 12.0 % [facility] NEUTROPHILS ABSOLUTE AUTO 7.7 High [facility] Neutrophils/100 WBC (Bld) 77.2 % High 43.0 - 75.0 % [facility] Platelet mean volume (Bld) [Entitic vol] 9.3 fL Low 9.5 - 13.5 fL [facility] TBH EO # 0.1 [facility]H PLT [address] [facility] RBC 3.9 Low [facility] WBC 10 [facility] Interpretation and review of laboratory results Abnormal [facility] IRON 17 ug/dL Low 50.0 - 170.0 ug/dL [facility] TB PERCENT IRON SATURATION 4.5 % [facility] TB TOTAL IRON BINDING CAPACITY 381 ug/dL 250.0 - 450.0 ug/dL [facility] Office Visiton 07-18-2024 Follow-up visit [id number] Oliver Starks 1945 F Date Provider Department Center 07/18/2024 [id number] [place] AMISH Lubin Family History Adopted: Yes Family history unknown: Yes Family Status - Relation Status Age at Mother Father Level of Service:39969 HI OFFICE/OUTPATIENT ESTABLISHED MOD MDM 30 MIN Reason for Visit and Comments: Atrial Fibrillation [80] PACEMAKER [Other] Coronary Artery Disease [187] Hypertension [713632] Sinus node dysfunction [Other] - HAS BOST[place] PACER Obesity [[id number]] Edema [[id number]] Normal [facility] CNOVon 05-22-2024 CNOV Office Visit (LOORRM ) BREANN STARKS ([id number]) 1945 F Date Time Provider Department 05/22/24 [...] Duration Units: Months Frequency: Intermittent Intervention/Comfort measure: Reposition;Relaxation; Medication;Positioning baclofen, percocet HISTORY: Breann Starks has complains [...] recommended for second opinion at [facility]. She also had a CRP and [...] No date: COPD (chronic obstructive pulmonary disease) ([facility]) SOCIAL HISTORY: Tobacco Use: Never EXAMINATION: GENERAL: [...] I ordered (more content not included)... Normal [facility] XR SHLDR 4V AP/HECTOR/LAT/OUTLE T LTon [...] other significant abnormality. IMPRESSION: EXPECTED POSTOPERATIVE APPEARANCE Nut Tapper: PSCB Transcribe Date/Time: May 22 2024 2:42P Dictated by : VILMA ABREU MD This examination was interpreted and the report reviewed and electronically signed by: VILMA ABREU MD on May 22 2024 2:42PM EST [id number] Normal [facility] XR Shoulder - left 4 Viewson 05-22-2024 IMPRESSION: EXPECTED POSTOPERATIVE APPEARANCE Nut Tapper: PSCB Transcribe Date/Time: May 22 2024 2:42P [...] other significant abnormality. DIVISION OF RADIOLOGY Provider, [facility] - 05/22/2024 * * *Final Report* * [...] significant abnormality. IMPRESSION IMPRESSION: EXPECTED POSTOPERATIVE APPEARANCE Nut Tapper: STEVE Transcribe Date/Time: May 22 2024 2:42P Dictated by : VILMA ABREU MD This examination was interpreted and the report reviewed and electronically signed by: VILMA ABREU MD on May 22 2024 2:42PM EST [facility] Radiology Study observation (narrative) [facility] XR Shoulder - left 4 ViewsOr dered By: Ccf Provider on 05-22-[address] [facility] ALL CBC WITH AUTO DIFFon BASOPHILS ABSOLUTE AUTO 0.0 [facility] Basophils/100 WBC (Bld) 0.6 % 0.2 - 2.0 % [facility] Eosinophils/100 WBC (Bld) 1.0 % 0.9 - 7.0 % [facility] Erythrocyte distribution width (RBC) [Ratio] 19.6 % High 11.0 - 15.0 % [facility] Hematocrit (Bld) [Volume fraction] 32.9 % Low 36.0 - 48.0 % [facility] Hemoglobin (Bld) [Mass/Vol] 9.7 g/dL Low 12.0 - 16.0 g/dL [facility] IMMATURE GRANULOCYTES ABS AUTO 0.02 [facility] Immature granulocytes/100 WBC (Bld) 0.3 % 0.0 - 0.5 % [facility] Interpretation and review of laboratory results Abnormal [facility] LYMPHOCYTES ABSOLUTE AUTO 1.4 [facility] Lymphocytes/100 WBC (Bld) 20.4 % Low 20.5 - 60.0 % [facility] MCH (RBC) [Entitic mass] 22.8 pg Low 26.7 - 34.0 pg [facility] MCHC (RBC) [Mass/Vol] 29.5 g/dL Low 29.9 - 35.2 g/dL [facility] MCV (RBC) [Entitic vol] 77.4 fL Low 81.0 - 99.0 fL [facility] MONOCYTES ABSOLUTE AUTO 0.7 [facility] Monocytes/100 WBC (Bld) 9.8 % 1.7 - 12.0 % [facility] NEUTROPHILS ABSOLUTE AUTO 4.7 [facility] Neutrophils/100 WBC (Bld) 67.9 % 43.0 - 75.0 % [facility] Platelet mean volume (Bld) [Entitic vol] 8.5 fL Low 9.5 - 13.5 fL [facility] TBH EO # 0.1 [facility] TB PLT [address] [facility] RBC 4.[address] [facility] WBC 7.0 [facility] NM bone 3 phaseon 05-02-2024 NM bone 3 phase [facility] Main [place] [address] [place] [address] Nuclear Medicine Report Signed Patient: Breann Starks MR#: [id number] : 1945 Acct:[id number] Age/Sex: 78 / F ADM Date: 05/02/24 Loc: [place] Room: Type: [facility] Attending Dr: Pedro Pablo Cruz PA-C Copies to: YOLY Sanon Jeffrey S DO Ordering Provider: Pedro Pablo Cruz PA-C Date of Service: 05/02/24 [place] bone 3 phase: M25.512, Z96.612 Nuclear medicine [...] be degenerative. Plain film correlation. No hyperemia. [place] bone 3 phase IMPRESSION: Increased uptake of the left the glenoid. There may be concern for loosening. Correlate with plain film imaging. Increased uptake of the left acromion. May represent degenerative change. Fracture may be present in this region. Correlate with plain film imaging. Impression dictated by: Etienne Rhodes M.D.05/02/2024 2:44 PM Dictation Location: [place] [address] Transcribed By: STAR 05/02/241443 Dictated By: CarmeloEtienne Fuentes DO 05/02/24 144 Signed By: 05/02/24 144 Normal [facility] Lab Reportson 03-07-2024 Lab Reports [id number] 0TIFF Normal [facility] 36on 03-06-2024 36 Echo from 03/05/2024 reviewed [...] to her pharmacy. BMP order faxed to [facility]. Breann verbalized understanding. Normal [facility] Consent for Procedure/Surger yon 03-05-2024 Consent for Procedure/Surgery [id number] 0TIFF Normal [facility] Ambulatory Visit Summaryon 0 03-02-2024 Ambulatory Visit Summary BREANN STARKS :1945 Visit Date:03/02/2024 Ambulatory Visit Instructions Your Care Team Attending Physician - CATHERINE CUBA, Jair Bishop Primary Care Physician - Barbara Dai Referring Physician - CIRA CUBA, [facility] This Is Your Medications List Contact prescribing physician if questions or concerns acetaminophen-hydrocod one (acetaminophen-hydroco done 325 mg-5 mg oral tablet) apixaban (Eliquis [...] BSO - Total abdominal hysterectomy and bilateral salpingo-oophorectomy. Discharge Vitals Heart Rate (Peripheral) 71 Respiratory Rate 16 Blood Pressure 118/75 Height 141 cm Height 56 in Weight 107.6 kg Weight 236.72 lb BMI 54.12 Medications What How Much When Instructions Unchanged acetaminophen-hydrocod one (acetaminophen-hydroco done 325 mg-5 mg oral tablet) 1 Tablets [...] for choosing us for your care. Normal [facility] ED Note-Physicianon 03-02-20 24 ED Note-Physician [id number] TIFF Normal [facility] Insurance Correspondenceon 0 03-02-2024 Insurance Correspondence [id number] 00TIFF [facility] Lab Reportson 03-02-2024 Lab Reports [id number] 0TIFF Normal [facility] 36on 01-25-2024 36 Patient called stati kassandra ever since her device was adjusted last month she's had this weird feeling in her throat. I called Sony Asif from [employer] and he told me this feeling she's having should not be from her device. Patient informed. I suggested she see PCP for this. She verbalized understanding. Normal [facility] DXA Skeletal system Views fo r bone densityon 12-12-2023 Interpretation and review of laboratory results Normal [facility] normal [facility] Radiology Study observation (narrative) [facility] XR LSPINE W_OBLS AND FLEX_EX Ton [...] by: PAULA BROWN Date: 2023-01-31 11:34 Normal [facility] LIPID PROFILEon 12-16-2022 CHOL-HDL RATIO NORM SEE BELOW Normal [facility] Comment on above: Result Comment: 3.3 - 4.4 LOW RISK 4.4 - 7.1 AVERAGE RISK 7.1 - 11.0 MODERATE RISK >11.0 HIGH RISK Performed By: #### L IPID ####[facility] [address] [place] [id number]. Erasmo Smith Cholesterol [Mass/Vol] 105 mg/dL Normal <=200 [facility] Comment on above: Performed By: #### L IPID ####[facility] [address] [place] [phone]. Erasmo Smith Cholesterol in HDL [Mass/Vol] 48 mg/dL Normal 40-60 [facility] Comment on above: Performed By: #### L IPID ####[facility] [address] [place] [phone]. Erasmo Smith Cholesterol in LDL [Mass/Vol] 48.2 mg/dL Normal [facility] Comment on above: Performed By: #### L IPID ####[facility] [address] [place], [place] [address]Cf. Erasmo Smith Cholesterol.total/Cho lesterol in HDL [Mass ratio] 2.2 {ratio} Normal [facility] Comment on above: Performed By: #### L IPID ####[facility] [address] [place] [phone]. Erasmo Smith HDL NORMAL > or = 60 mg/dl - LO W CARDIOVASCULAR RISK <40 mg/dl - HIGH CARDIOVASCULAR RISK Normal [facility] Comment on above: Performed By: #### L IPID ####[facility] [address] [place] [address]Dr. Erasmo Smith LDL CALC NORMAL SEE BELOW Normal [facility] Comment on above: Result Comment: <100 mg/dl OPTIMAL 100 - 129 mg/dl NEAR OR ABOVE OPTIMAL 130 - 159 mg/dl BORDERLINE HIGH 160 - 189 mg/dl HIGH >190 mg/dl VERY HIGH Performed By: #### L IPID ####[facility] [address] [place] [phone]. Erasmo Smith Triglyceride [Mass/Vol] 44 mg/dL Normal <=150 [facility] Comment on above: Performed By: #### L IPID ####[facility] [address] [place], [place] [address]Dr. Erasmo Smith VLDL CALC 8.8 mg/dL Normal [facility] Comment on above: Performed By: #### L IPID ####[facility] [address] [place], [place] [address]Dr. Erasmo Smith CULTURE BLOODon 12-04-2022 Microscopic examination of blood, culture Culture Observations: Aerobic and Anaerobic bottle positive. BCID: E. Coli Isolate 1 Escherichia coli Growth of ORGANISM 1 Escherichia coli ANTIBIOTIC M.I.C RX STATUS Ampicillin <=2 S F Ampicillin/Sulbactam <=2 S F Piperacillin/Tazobacta m <=4 S F Cefazolin <=4 S F Ceftazidime <=1 S F Ceftriaxone <=1 S F Ertapenem <=0.5 S F Imipenem <=0.25 S F Amikacin <=2 S F Gentamicin <=1 S F Tobramycin <=1 S F Ciprofloxacin <=0.25 S F Levofloxacin <=0.12 S F Trimethoprim/Sulfameth oxazole <=20 S F Normal [facility] Comment on above: Performed By: #### B LDCX1 ####[facility] [address] [place], [place] [address]Dr. Erasmo Smith BNPon 12-03-2022 Natriuretic peptide B (Bld) [Mass/Vol] 413.0 pg/mL Normal <=1,800.0 [facility] Comment on above: Performed By: #### B DIGITAL ACCOUNT COORDINATOR #### [facility] Laboratory [address] [place] [address] [address] Erasmo Smith CBC AUTO DIFFon 12-03-2022 BASO # 0.0 103/ul Normal 0.0-0.1 [facility] Comment on above: Performed By: #### C BC ####[facility] [address] [place] [address]DrMeena Smith Basophils/100 WBC (Bld) 0.2 % Normal 0.2-2.0 [facility] Comment on above: Performed By: #### C BC ####[facility] [address] [place], [place] [address]Dr. Erasmo Smith EO # 0.4 103/ul Normal 0.0-0.7 [facility] Comment on above: Performed By: #### C BC ####[facility] [address] [place], [place] [address]Dr. Erasmo Smith Eosinophils/100 WBC (Bld) 2.1 % Normal 0.9-7.0 [facility] Comment on above: Performed By: #### C BC ####[facility] [address] [place], [place] [address]Dr. Erasmo Smith Erythrocyte distribution width (RBC) [Ratio] 17.2 % Critically high 11.0-15.0 [facility] Comment on above: Performed By: #### C BC ####[facility] [address] [place], [place] [address]DrMeena Smith Hematocrit (Bld) [Volume fraction] 29.2 % Critically low 36.0-48.0 [facility] Comment on above: Performed By: #### C BC ####[facility] [address] [place], [place] [address]DrMeena Smith Hemoglobin (Bld) [Mass/Vol] 9.5 g/dL Critically low 12.0-16.0 [facility] Comment on above: Performed By: #### C BC ####[facility] [address] [place] [address]Dr. Erasmo Smith IG # 0.13 10e3/ul Critically high 0.00-0.03 [facility] Comment on above: Performed By: #### C BC ####[facility] [address] [place] [address]Dr. Erasmo Luis IG % 0.8 % Critically high 0.0-0.5 [facility] Comment on above: Performed By: #### C BC ####[facility] [address] [place], [place] [address]Dr. Erasmo Luis LYMPH # 1.8 103/ul Normal 1.2-3.8 [facility] Comment on above: Performed By: #### C BC ####[facility] [address] [place], [place] [address]Dr. Erasmo Luis Lymphocytes/100 WBC (Bld) 10.3 % Critically low 20.5-60.0 [facility] Comment on above: Performed By: #### C BC ####[facility] [address] [place], [place] [address]Dr. Heavenean Smith MANUAL DIFF REQ NO Normal [facility] Comment on above: Performed By: #### C BC ####[facility] [address] [place], [place] [address]DrMeena Erasmo Smith MCH (RBC) [Entitic mass] 25.7 pg Critically low 26.7-34.0 [facility] Comment on above: Performed By: #### C BC ####[facility] [address] [place], [place] [address]DrMeena Erasmo Smith MCHC (RBC) [Mass/Vol] 32.5 g/dL Normal 29.9-35.2 [facility] Comment on above: Performed By: #### C BC ####[facility] [address] [place], [place] [address]DrMeena Erasmo Smith MCV (RBC) [Entitic vol] 79.1 fL Critically low 81.0-99.0 [facility] Comment on above: Performed By: #### C BC ####[facility] [address] [place], [place] [address]Dr. Erasmo Smith MONO # 1.5 103/ul Critically high 0.3-0.8 [facility] Comment on above: Performed By: #### C BC ####[facility] [address] [place] [phone]. Erasmo Smith Monocytes/100 WBC (Bld) 8.7 % Normal 1.7-12.0 [facility] Comment on above: Performed By: #### C BC ####[facility] [address] [place] [phone]. Erasmo Smith NEUT # 13.4 103/ul Critically high 1.4-6.5 [facility] Comment on above: Performed By: #### C BC ####[facility] [address] [place] [address]Dr. Erasmo Smith Neutrophils/100 WBC (Bld) 77.9 % Critically high 43.0-75.0 [facility] Comment on above: Performed By: #### C BC ####[facility] [address] [place] [address]Dr. Erasmo Smith Platelet mean volume (Bld) [Entitic vol] 9.3 fL Critically low 9.5-13.5 [facility] Comment on above: Performed By: #### C BC ####[facility] [address] [place] [phone]. Erasmo Smith PLT 205 103/ul Normal 150-450 [facility] Comment on above: Performed By: #### C BC ####[facility] [address] [place] [address]Dr. Erasmo Smith RBC 3.69 106/ul Critically low 4.20-5.40 The [facility] Comment on above: Performed By: #### C BC ####[facility] [address] [place] [id number]. Erasmo Smith WBC 17.2 103/ul Critically high 4.0-11.0 The [facility] Comment on above: Performed By: #### C BC ####[facility] S[address] [place], [place] [id number]. Erasmo Smith MAGNESIUMon 12-03-2022 Magnesium [Mass/Vol] 1.9 mg/dL Normal 1.8-2.4 [facility] [place] Comment on above: Performed By: #### B DIGITAL ACCOUNT COORDINATOR #### [facility] Laboratory [address] [place] [address] Dr. Erasmo Smith PROF 14(COMP METB)on 023 Albumin [Mass/Vol] 2.6 g/dL Critically low 3.4-5.0 Th e [facility] Comment on above: Performed By: #### B DIGITAL ACCOUNT COORDINATOR #### [facility] [address] [place] [address] Dr. Erasmo Smith Albumin/Globulin [Mass ratio] 0.6 {ratio} Normal [facility] [place] Comment on above: Performed By: #### B DIGITAL ACCOUNT COORDINATOR #### [facility] [address] [place] [address] Dr. Erasmo Smith ALP [Catalytic activity/Vol] 123 U/L Critically high 46-116 [facility] [place] Comment on above: Performed By: #### B DIGITAL ACCOUNT COORDINATOR #### [facility] [address] [place] [address] Dr. Erasmo Smith ALT [Catalytic activity/Vol] 28 U/L Normal 14-59 [facility] [place] Comment on above: Performed By: #### B DIGITAL ACCOUNT COORDINATOR #### [facility] [address] [place] [address] Dr. Erasmo Smith Anion gap [Moles/Vol] 9.4 mmol/L Normal [facility] Comment on above: Performed By: #### B DIGITAL ACCOUNT COORDINATOR #### [facility] [address] [place] [address] Dr. Erasmo Smith AST [Catalytic activity/Vol] 21 U/L Normal 15-37 [facility] Comment on above: Performed By: #### B DIGITAL ACCOUNT COORDINATOR #### [facility] [address] [place] [address] Dr. Erasmo Smith Bilirubin [Mass/Vol] 0.3 mg/dL Normal 0.2-1.0 [facility] Comment on above: Performed By: #### B DIGITAL ACCOUNT COORDINATOR #### [facility] [address] [place] [address] Dr. Erasmo Smith Calcium [Mass/Vol] 8.3 mg/dL Critically low 8.5-10.1 Th [facility] Comment on above: Performed By: #### B DIGITAL ACCOUNT COORDINATOR #### [facility] [address] [place] [address] Dr. Erasmo Smith Chloride [Moles/Vol] 105 mmol/L Normal 98-107 [facility] [place] Comment on above: Performed By: #### B DIGITAL ACCOUNT COORDINATOR #### [facility] [address] [place] [address] Dr. Erasmo Smith CO2 [Moles/Vol] 27.1 mmol/L Normal 21.0-32.0 [facility] Comment on above: Performed By: #### B DIGITAL ACCOUNT COORDINATOR #### [facility] [address] [place] [address] Dr. Erasmo Smith Creatinine [Mass/Vol] 0.55 mg/dL Normal 0.55-1.02 [facility] [place] Comment on above: Performed By: #### B DIGITAL ACCOUNT COORDINATOR #### [facility] [address] [place] [address] Dr. Erasmo Smith EGFR-AF SAMMARINESE >60 Normal >=60 [facility] Comment on above: Performed By: #### B DIGITAL ACCOUNT COORDINATOR #### [facility] [address] [place] [address] Dr. Erasmo Smith EGFR-NON AF SAMMARINESE >60 Normal >=60 [facility] [place] Comment on above: Performed By: #### B DIGITAL ACCOUNT COORDINATOR #### [facility] [address] [place] [address] Dr. Erasmo Smith Globulin (S) [Mass/Vol] 4.0 g/dL Normal [facility] Comment on above: Performed By: #### B DIGITAL ACCOUNT COORDINATOR #### [facility] [address] [place] [address] Dr. Erasmo Smith Glucose [Mass/Vol] 132 mg/dL Critically high 74-106 T [facility] Comment on above: Performed By: #### B DIGITAL ACCOUNT COORDINATOR #### [facility] [address] [place] [address] Dr. Erasmo Smith Potassium [Moles/Vol] 3.5 mmol/L Normal 3.5-5.1 [facility] Comment on above: Performed By: #### B DIGITAL ACCOUNT COORDINATOR #### [facility] [address] [place] [address] Dr. Erasmo Smith Protein [Mass/Vol] 6.6 g/dL Normal 6.4-8.2 [facility] Comment on above: Performed By: #### B DIGITAL ACCOUNT COORDINATOR #### [facility] [address] [place] [address] Dr. Erasmo Smith Sodium [Moles/Vol] 138 mmol/L Normal 136-145 [facility] Comment on above: Performed By: #### B DIGITAL ACCOUNT COORDINATOR #### [facility] [address] [place] [address] Dr. Erasmo Smith Urea nitrogen [Mass/Vol] 24.0 mg/dL Critically high 7.0-18.0 [facility] [place] Comment on above: Performed By: #### B DIGITAL ACCOUNT COORDINATOR #### [facility] [address] [place] [address] Dr. Erasmo Smith Urea nitrogen/Creatinine [Mass ratio] 43.6 mg/mg Normal [facility] Comment on above: Performed By: #### B DIGITAL ACCOUNT COORDINATOR #### [facility] [address] [place] [address] Dr. Erasmo Smith PROTIMEon 12-03-2022 INR Coag (PPP) [Relative time] 4.41 {INR} Critically high [facility] Comment on above: Performed By: #### C MREP #### [facility] [address] [place] [address] Dr. Erasmo Smith INR GUIDELINES SEE BELOW Normal [facility] Comment on above: Result Comment: ABNER RED INR: 2.0 - 3.0 CONDITIONS NOT LISTED BELOW 2.5 - 3.5 FOR PROSTHETIC HEART VALVE REPLACEMENT 2.5 - 3.5 RECURRENT THROMBOSIS Performed By: #### C MREP #### [facility] [address] [place] [address] Dr. Erasmo Smith PT Coag (PPP) [Time] 43.0 s Critically high 9.0-11.6 [facility] Comment on above: Performed By: #### C MREP #### [facility] [address] [address] [address] Erasmo Smith BLOOD CULTURE ID PANELon A. baumannii Not detected Normal NOT DETECTED [facility] Comment on above: Performed By: #### B CID2 ####[facility] [address] [place] [phone]. Yiean Smith Bacteriodes fragilis Not detected Normal NOT DETECTED The [facility] Comment on above: Performed By: #### B CID2 ####[facility] [address] [place] [address]Dr. Yiean Luis BCID CONTROLS PASSED Normal The [facility] Comment on above: Performed By: #### B CID2 ####[facility] [address] [place] [address]Dr. Erasmo Smith BCIDBTHD BLOOD CULTURE BOTTLE INFORMATION Normal [facility] Comment on above: Performed By: #### B CID2 ####[facility] [address] [place] [address]Dr. Erasmo Smith BCIDHD1 ANTIMICROBIAL RESISTANCE GENES Normal [facility] Comment on above: Performed By: #### B CID2 ####[facility] [address] [place] [address]Dr. Heavenean Smith BCIDHD2 SEE BELOW Normal [facility] Comment on above: Result Comment: Note : Antimicrobial resitance can occur via multiple mechanisms. A Not Detected result for the [employer] antomicrobial resistance gene assays does not indicate antimicrobial susceptibility. Subculturing is required for species identification and susceptibility testing of isolates. Performed By: #### B CID2 ####[facility] [address] [place] [phone]. Heavenean Luis BCIDHD3 Positive Normal [facility] Comment on above: Performed By: #### B CID2 ####[facility] [address] [place] [address]Dr. Erasmo Luis BCIDHD4 Negative Normal [facility] Comment on above: Performed By: #### B CID2 ####[facility] [address] [place] [address]Dr. Erasmo Smith BCIDHD5 YEAST Normal [facility] Comment on above: Performed By: #### B CID2 ####[facility] [address] [place] [address]Dr. Yilan Smith Bottle Set: Set 1 Normal [facility] Comment on above: Performed By: #### B CID2 ####[facility] [address] [place] [address]Dr. Yiean Smith Bottle: Anaerobic Normal [facility] Comment on above: Performed By: #### B CID2 ####[facility] [address] [place] [address]Dr. Yilan Smith C. neoformans/gattii Not detected Normal NOT DETECTED [facility] Comment on above: Performed By: #### B CID2 ####[facility] [address] [place], [place] [address]Dr. Yiean Smith Naye albicans Not detected Normal NOT DETECTED [facility] Comment on above: Performed By: #### B CID2 ####[facility] [address] [place], [place] [address]Dr. Yiean Smith Naye auris Not detected Normal NOT DETECTED The [facility] Comment on above: Performed By: #### B CID2 ####[facility] [address] [place], [place] [address]Dr. Yilan Smith Naye glabrata Not detected Normal NOT DETECTED [facility] Comment on above: Performed By: #### B CID2 ####[facility] [address] [place] [address]Dr. Yilan Smith Naye Krusei Not detected Normal NOT DETECTED The [facility] Comment on above: Performed By: #### B CID2 ####[facility] [address] [place] [address]Dr. Yilan Smith Naye Parapsilosis Not detected Normal NOT DETECTED [facility] Comment on above: Performed By: #### B CID2 ####[facility] [address]udptl[address] [place] [address]Dr. Yilan Smith Naye Tropicalis Not detected Normal NOT DETECTED [facility] Comment on above: Performed By: #### B CID2 ####[facility] Owwosaxh[address] [place], [place] [address]Dr. Erasmo Smith CTX-M Resistant Gene Not Applicable Normal NOT DETECTE D [facility] Comment on above: Performed By: #### B CID2 ####[facility] K[address] [place], [place] [address]Dr. Erasmo Smith E. Cloacae complex Not detected Normal NOT DETECTED [facility] Comment on above: Performed By: #### B CID2 ####[facility] T[address]xt[address] [place], [place] [address]Dr. Erasmo Smith E. faecalis Not detected Normal NOT DETECTED The [facility] Comment on above: Performed By: #### B CID2 ####[facility] Krwpikbef[address] [place], [place] [address]Dr. Erasmo Smith E. faecium Not detected Normal NOT DETECTED [facility] Comment on above: Performed By: #### B CID2 ####[facility] [address]zospfbpb[address] [place], [place] [address]Dr. Erasmo Smith Enterobacteriaceae Detected Critically abnormal NOT DETECTED [facility] Comment on above: Performed By: #### B CID2 ####[facility] Szyjumx[address] [place], [place] [address]Dr. Erasmo Smith Escherichia coli Detected Critically abnormal NOT DETECTED [facility] Comment on above: Performed By: #### B CID2 ####[facility] Plmtscc[address] [place], [place] [address]Dr. Erasmo Smith H. influenzae Not detected Normal NOT DETECTED The [facility] Comment on above: Performed By: #### B CID2 ####[facility] [address] [place], [place] [address]Dr. Erasmo Smith IMP Resistant Gene Not Applicable Normal NOT DETECTED The [facility] Comment on above: Performed By: #### B CID2 ####[facility] [address]sc[address]vq[address] [place], [place] [address]Dr. Erasmo Smith K. oxytoca Not detected Normal NOT DETECTED [facility] Comment on above: Performed By: #### B CID2 ####[facility] Xlpixpdfbw[address] [place], [place] [address]Dr. Erasmo Smith K. pneumoniae Not detected Normal NOT DETECTED [facility] Comment on above: Performed By: #### B CID2 ####[facility] Ecbzinfast[address] [place], [place] [address]Dr. Erasmo Smith Klebsiella aerogenes Not detected Normal NOT DETECTED [facility] Comment on above: Performed By: #### B CID2 ####[facility] Qiptemfzsx[address] [place], [place] [address]Dr. Erasmo Smith KPC Resistant Gene Not detected Normal NOT DETECTED [facility] Comment on above: Performed By: #### B CID2 ####[facility] Yxwbfbyodw[address] [place], [place] [address]Dr. Erasmo Smith List. monocytogenes Not detected Normal NOT DETECTED [facility] Comment on above: Performed By: #### B CID2 ####[facility] Cv[address]hltpim[address] [place], [place] [address]Dr. Erasmo Smith Mcr-1 Resistant Gene Not Applicable Normal NOT DETECTE D [facility] Comment on above: Performed By: #### B CID2 ####[facility] C[address]vyvjhbi[address] [place], [place] [address]Dr. Erasmo Smith mecA/C Not Applicable Normal NOT DETECTED [facility] Comment on above: Performed By: #### B CID2 ####[facility] Hxkevfkncj[address] [place], [place] [address]Dr. Erasmo Smith mecA/C MREJ Not Applicable Normal NOT DETECTED The [facility] Comment on above: Performed By: #### B CID2 ####[facility] Dcaootjohw[address] [place], [place] [address]Dr. Erasmo Smith N. meningitidis Not detected Normal NOT DETECTED The [facility] Comment on above: Performed By: #### B CID2 ####[facility] Kvsxsfebzy[address] [place], [place] [address]Dr. Erasmo Smith NDM Resistant Gene Not Applicable Normal NOT DETECTED [facility] Comment on above: Performed By: #### B CID2 ####[facility] Oiktosnltx[address] [place], [place] [address]Dr. Erasmo Smith Oxa-48-like Not Applicable Normal NOT DETECTED [facility] Comment on above: Performed By: #### B CID2 ####[facility] Utpuw[address]ymb[address] [place], [place] [address]Dr. Erasmo Smith Proteus Not detected Normal NOT DETECTED [facility] Comment on above: Performed By: #### B CID2 ####[facility] Xfomcnexop[address] [place], [place] [address]Dr. Erasmo Smith Pseud. aeruginosa Not detected Normal NOT DETECTED [facility] Comment on above: Performed By: #### B CID2 ####[facility] Qdefwjyczn[address] [place], [place] [address]Dr. Erasmo Smith S. maltophilia Not detected Normal NOT DETECTED The [facility] Comment on above: Performed By: #### B CID2 ####[facility] Gffwqd[address] [place], [place] [address]Dr. Erasmo Smith Salmonella Not detected Normal NOT DETECTED [facility] Comment on above: Performed By: #### B CID2 ####[facility] Foaagwjnnf[address] [place], [place] [address]Dr. Erasmo Smith Seratia marcescens Not detected Normal NOT DETECTED [facility] Comment on above: Performed By: #### B CID2 ####[facility] Easxswygbb[address] [place], [place] [address]Dr. Erasmo Smith Site: l ac Normal [facility] Comment on above: Performed By: #### B CID2 ####[facility] Bwqewedxbm[address] [place], [place] [address]Dr. Erasmo Smith Staph. aureus Not detected Normal NOT DETECTED The [facility] Comment on above: Performed By: #### B CID2 ####[facility] Tie[address]melht[address] [place], [place] [address]Dr. Erasmo Smith Staph. epidermidis Not detected Normal NOT DETECTED [facility] Comment on above: Performed By: #### B CID2 ####[facility] [address]nt[address]whmh[address] [place], [place] [address]Dr. Erasmo Smith Staph. lugdunensis Not detected Normal NOT DETECTED [facility] Comment on above: Performed By: #### B CID2 ####[facility] [address] [place] [address]Dr. Erasmo Smith Staphylococcus Not detected Normal NOT DETECTED The [facility] Comment on above: Performed By: #### B CID2 ####[facility] [address]pok[address] [place] [address]Dr. Erasmo Smith Strep. agalactiae Not detected Normal NOT DETECTED [facility] Comment on above: Performed By: #### B CID2 ####[facility] [address]esreuc[address] [place] [address]Dr. Erasmo Smith Strep. pneumoniae Not detected Normal NOT DETECTED [facility] Comment on above: Performed By: #### B CID2 ####[facility] [address]zpfn[address] [place] [address]Dr. Erasmo Smith Strep. pyogenes Not detected Normal NOT DETECTED [facility] Comment on above: Performed By: #### B CID2 ####[facility] [address]auebycy[address] [place], [place] [address]Dr. Erasmo Smith Streptococcus Not detected Normal NOT DETECTED The [facility] Comment on above: Performed By: #### B CID2 ####[facility] O[address]aiijzwxm[address] [place], [place] [address]Dr. Erasmo Smith Fran/B Resist. Gene Not detected Normal NOT DETECTED [facility] Comment on above: Performed By: #### B CID2 ####[facility] [address]qbz[address] [place], [place] [address]Dr. Erasmo Smith VIM Resistant Gene Not Applicable Normal NOT DETECTED [facility] Comment on above: Performed By: #### B CID2 ####[facility] [address] [place] [address]DrMeena Smith BNPon 12-02-2022 Natriuretic peptide B (Bld) [Mass/Vol] 1059.0 pg/mL Normal <=1,800.0 [facility] Comment on above: Performed By: #### B DIGITAL ACCOUNT COORDINATOR #### [facility] [address] [address] [address] Erasmo Smith CBC AUTO DIFFon 12-02-2022 BASO # 0.0 103/ul Normal 0.0-0.1 [facility] Comment on above: Performed By: #### C BC ####[facility] [address] [place] [address]Dr. Erasmo Smith Basophils/100 WBC (Bld) 0.2 % Normal 0.2-2.0 [facility] Comment on above: Performed By: #### C BC ####[facility] [address]ys[address]ru[address] [place] [address]Dr. Erasmo Smith EO # 0.0 103/ul Normal 0.0-0.7 [facility] Comment on above: Performed By: #### C BC ####[facility] [address]mj[address]tvb[address] [place] [address]Dr. Erasmo Smith Eosinophils/100 WBC (Bld) 0.0 % Critically low 0.9-7.0 [facility] Comment on above: Performed By: #### C BC ####[facility] [address]me[address] [place], [place] [address]Dr. Erasmo Smith Erythrocyte distribution width (RBC) [Ratio] 17.3 % Critically high 11.0-15.0 [facility] Comment on above: Performed By: #### C BC ####[facility] [address]pm[address] [place] [address]Dr. Erasmo Smith Hematocrit (Bld) [Volume fraction] 31.4 % Critically low 36.0-48.0 [facility] Comment on above: Performed By: #### C BC ####[facility] [address] [place] [address]Dr. Erasmo Smith Hemoglobin (Bld) [Mass/Vol] 10.0 g/dL Critically low 12.0-16.0 [facility] Comment on above: Performed By: #### C BC ####[facility] [address] [place] [address]Dr. Erasmo Smith IG # 0.06 10e3/ul Critically high 0.00-0.03 [facility] Comment on above: Performed By: #### C BC ####[facility] [address] [place] [id number]. Erasmo Luis IG % 0.4 % Normal 0.0-0.5 [facility] Comment on above: Performed By: #### C BC ####[facility] [address] [place] [address]Dr. Erasmo Luis LYMPH # 1.3 103/ul Normal 1.2-3.8 [facility] Comment on above: Performed By: #### C BC ####[facility] [address] [place] [id number]. Erasmo Luis Lymphocytes/100 WBC (Bld) 8.1 % Critically low 20.5-60.0 [facility] Comment on above: Performed By: #### C BC ####[facility] D[address] [place] [address]Dr. Heavenean Smith MANUAL DIFF REQ NO Normal The [facility] Comment on above: Performed By: #### C BC ####[facility] [address] [place] [address]Dr. Erasmo Luis MCH (RBC) [Entitic mass] 25.6 pg Critically low 26.7-34.0 [facility] Comment on above: Performed By: #### C BC ####[facility] [address] [place], [place] [address]Dr. Erasmo Smith MCHC (RBC) [Mass/Vol] 31.8 g/dL Normal 29.9-35.2 [facility] Comment on above: Performed By: #### C BC ####[facility] [address] [place] [address]Dr. Erasmo Smith MCV (RBC) [Entitic vol] 80.3 fL Critically low 81.0-99.0 [facility] Comment on above: Performed By: #### C BC ####[facility] [address]ui[address] [place], [place] [address]Dr. Heavenean Smith MONO # 0.6 103/ul Normal 0.3-0.8 [facility] Comment on above: Performed By: #### C BC ####[facility] [address] [place] [id number]. Erasmo Smith Monocytes/100 WBC (Bld) 3.7 % Normal 1.7-12.0 [facility] Comment on above: Performed By: #### C BC ####[facility] [address] [place] [address]Dr. Erasmo Smith NEUT # 14.5 103/ul Critically high 1.4-6.5 [facility] Comment on above: Performed By: #### C BC ####[facility] [address] [place] [address]Dr. Erasmo Smith Neutrophils/100 WBC (Bld) 87.6 % Critically high 43.0-75.0 [facility] Comment on above: Performed By: #### C BC ####[facility] [address] [place] [address]Dr. Erasmo Smith Platelet mean volume (Bld) [Entitic vol] 10.0 fL Normal 9.5-13.5 [facility] Comment on above: Performed By: #### C BC ####[facility] [address] [place] [id number]. Erasmo Smith PLT 206 103/ul Normal 150-450 [facility] Comment on above: Performed By: #### C BC ####[facility] [address] [place] [address]Dr. Erasmo Smith RBC 3.91 106/ul Critically low 4.20-5.40 The [facility] Comment on above: Performed By: #### C BC ####[facility] [address] [place] [id number]. Erasmo Smith WBC 16.5 103/ul Critically high 4.0-11.0 [facility] Comment on above: Performed By: #### C BC ####[facility] Q[address] [place], [place] [id number]. Erasmo Smith ECHOCARDIO M/2D COMPLETEon 0 12-02-2022 ECHOCARDIO M/2D COMPLETE Patient: BREANN STARKS Exam Date: 12/02/2022 : 1945 Gender:F Ordering : KAYLEY HOLMAN . Admission #: [id number] Family : DR LIEBERMAN Reyna JOHNSON . Order #: [id number] CLICK HERE TO VIEW EXAM ECHOCARDIOGRAM REPORT [...] Salazar M.D. on 12/02/2022 at 21:58 Normal [facility] MAGNESIUMon 12-02-2022 Magnesium [Mass/Vol] 2.0 mg/dL Normal 1.8-2.4 [facility] Comment on above: Performed By: #### B DIGITAL ACCOUNT COORDINATOR #### [facility] [address] [place] [address] Dr. Erasmo Smith PROF 14(COMP METB)on 023 Albumin [Mass/Vol] 2.7 g/dL Critically low 3.4-5.0 Th e [facility] Comment on above: Performed By: #### B DIGITAL ACCOUNT COORDINATOR #### [facility] [address] [place] [address] Dr. Erasmo Smith Albumin/Globulin [Mass ratio] 0.6 {ratio} Normal [facility] Comment on above: Performed By: #### B DIGITAL ACCOUNT COORDINATOR #### [facility] [address] [place] [address] Dr. Erasmo Smith ALP [Catalytic activity/Vol] 128 U/L Critically high 46-116 [facility] Comment on above: Performed By: #### B DIGITAL ACCOUNT COORDINATOR #### [facility] [address] [address] [address] Erasmo Smith ALT [Catalytic activity/Vol] 34 U/L Normal 14-59 [facility] Comment on above: Performed By: #### B DIGITAL ACCOUNT COORDINATOR #### [facility] [address] [place] [address] Dr. Erasmo Smith Anion gap [Moles/Vol] 10.6 mmol/L Normal [facility] Comment on above: Performed By: #### B DIGITAL ACCOUNT COORDINATOR #### [facility] [address] [address] [address] Erasmo Smith AST [Catalytic activity/Vol] 27 U/L Normal 15-37 [facility] Comment on above: Performed By: #### B DIGITAL ACCOUNT COORDINATOR #### [facility] [address] [place] [address] Dr. Erasmo Smith Bilirubin [Mass/Vol] 0.5 mg/dL Normal 0.2-1.0 [facility] Comment on above: Performed By: #### B DIGITAL ACCOUNT COORDINATOR #### [facility] [address] [place] [address] Dr. Erasmo Smith Calcium [Mass/Vol] 8.4 mg/dL Critically low 8.5-10.1 [facility] Comment on above: Performed By: #### B DIGITAL ACCOUNT COORDINATOR #### [facility] [address] [place] [address] Dr. Erasmo Smith Chloride [Moles/Vol] 104 mmol/L Normal 98-107 [facility] Comment on above: Performed By: #### B DIGITAL ACCOUNT COORDINATOR #### [facility] [address] [place] [address] Dr. Erasmo Smith CO2 [Moles/Vol] 26.2 mmol/L Normal 21.0-32.0 [facility] Comment on above: Performed By: #### B DIGITAL ACCOUNT COORDINATOR #### [facility] [address] [place] [address] Dr. Erasmo Smith Creatinine [Mass/Vol] 0.52 mg/dL Critically low 0.55-1.02 [facility] Comment on above: Performed By: #### B DIGITAL ACCOUNT COORDINATOR #### [facility] [address] [place] [address] Dr. Erasmo Smith EGFR-AF SAMMARINESE >60 Normal >=60 [facility] Comment on above: Performed By: #### B DIGITAL ACCOUNT COORDINATOR #### [facility] [address] [address] [address] Erasmo Smith EGFR-NON AF SAMMARINESE >60 Normal >=60 [facility] Comment on above: Performed By: #### B DIGITAL ACCOUNT COORDINATOR #### [facility] [address] [address] [address] Erasmo Smith Globulin (S) [Mass/Vol] 4.3 g/dL Normal [facility] Comment on above: Performed By: #### B DIGITAL ACCOUNT COORDINATOR #### [facility] [address] [address] [address] Erasmo Smith Glucose [Mass/Vol] 135 mg/dL Critically high 74-106 T [facility] Comment on above: Performed By: #### B DIGITAL ACCOUNT COORDINATOR #### [facility] [address] [address] [address] Erasmo Smith Potassium [Moles/Vol] 3.8 mmol/L Normal 3.5-5.1 [facility] Comment on above: Performed By: #### B DIGITAL ACCOUNT COORDINATOR #### [facility] [address] [place] [address] Dr. Erasmo Smith Protein [Mass/Vol] 7.0 g/dL Normal 6.4-8.2 [facility] Comment on above: Performed By: #### B DIGITAL ACCOUNT COORDINATOR #### [facility] [address] [address] [address] Erasmo Smith Sodium [Moles/Vol] 137 mmol/L Normal 136-145 The [facility] Comment on above: Performed By: #### B DIGITAL ACCOUNT COORDINATOR #### [facility] [address] [address] [address] Erasmo Smith Urea nitrogen [Mass/Vol] 16.0 mg/dL Normal 7.0-18.0 [facility] Comment on above: Performed By: #### B DIGITAL ACCOUNT COORDINATOR #### [facility] [address] [address] [address] Erasmo Smith Urea nitrogen/Creatinine [Mass ratio] 30.8 mg/mg Normal [facility] Comment on above: Performed By: #### B DIGITAL ACCOUNT COORDINATOR #### [facility] [address] [address] [address] Erasmo Smith PROTIMEon 12-02-2022 INR Coag (PPP) [Relative time] 4.39 {INR} Critically high [facility] Comment on above: Performed By: #### P T #### [facility] [address] [address] [address] Erasmo Smith INR GUIDELINES SEE BELOW Normal [facility] Comment on above: Result Comment: ABNER RED INR: 2.0 - 3.0 CONDITIONS NOT LISTED BELOW 2.5 - 3.5 FOR PROSTHETIC HEART VALVE REPLACEMENT 2.5 - 3.5 RECURRENT THROMBOSIS Performed By: #### P T #### [facility] [address] [address] [address] Erasmo Smith PT Coag (PPP) [Time] 42.8 s Critically high 9.0-11.6 [facility] Comment on above: Performed By: #### P T #### [facility] [address] [place] [address] [address] Erasmo Smith UA RANDOM W/MICROSCOPICon BACTERIA NONE SEEN Normal NONE SEEN [facility] Comment on above: Performed By: #### U AMIC ####[facility] [address] [place] [address]DrMeena Smith Bilirubin Ql (U) Negative Normal NEGATIVE [facility] Comment on above: Performed By: #### U AMIC ####[facility] [address] [place] [address]DrMeena Smith CAST NONE SEEN Normal NONE SEEN [facility] Comment on above: Performed By: #### U AMIC ####[facility] [address] [place] [address]DrMeena Smith Clarity (U) CLEAR Normal CLEAR [facility] Comment on above: Performed By: #### U AMIC ####[facility] [address] [place] [address]DrMeena Smith Color (U) YELLOW Normal YELLOW [facility] Comment on above: Performed By: #### U AMIC ####[facility] [address] [place] [address]Dr. Erasmo Smith Crystals LM Nom (Urine sed) NONE SEEN Normal NONE SEEN [facility] Comment on above: Performed By: #### U AMIC ####[facility] [address] [place] [address]Dr. Erasmo Smith Epithelial cells LM Ql (Urine sed) RARE Normal NONE SEEN /RARE [facility] Comment on above: Performed By: #### U AMIC ####[facility] [address] [place] [address]Dr. Erasmo Smith Glucose Ql (U) Negative Normal NEGATIVE [facility] Comment on above: Performed By: #### U AMIC ####[facility] [address] [place], [place] [address]Dr. Erasmo Smith Hemoglobin Ql (U) SMALL Abnormal NEGATIVE [facility] Comment on above: Performed By: #### U AMIC ####[facility] [address] [place], [place] [address]Dr. Erasmo Smith Ketones Ql (U) 15 mg/dl Abnormal NEGATIVE [facility] Comment on above: Performed By: #### U AMIC ####[facility] [address] [place], [place] [address]Dr. Erasmo Smith LEUKOCYTES Negative Normal NEGATIVE [facility] Comment on above: Performed By: #### U AMIC ####[facility] [address] [place], [place] [address]Dr. Erasmo Smith MUCOUS NONE SEEN Normal NONE SEEN [facility] Comment on above: Performed By: #### U AMIC ####[facility] [address] [place], [place] [address]Dr. Erasmo Smith Nitrite Ql (U) Negative Normal NEGATIVE [facility] Comment on above: Performed By: #### U AMIC ####[facility] [address] [place] [address]Dr. Erasmo Smith pH (U) 6.0 [pH] Normal 5-9 [facility] Comment on above: Performed By: #### U AMIC ####[facility] [address] [place] [id number]. Erasmo Smith RBC 0-2 Normal 0-2 [facility] Comment on above: Performed By: #### U AMIC ####[facility] [address] [place] [phone]. Erasmo Smith SPEC GRAVITY 1.025 Normal 1.005-<=1.02 5 [facility] Comment on above: Performed By: #### U AMIC ####[facility] [address] [place] [address]Dr. Erasmo Smith UA PROTEIN TRACE Normal NEGATIVE/ TRACE [facility] Comment on above: Performed By: #### U AMIC ####[facility] [address] [place] [address]Dr. Erasmo Smith Urobilinogen Qn (U) 4 {Shraddha'U}/dL Abnormal 0.2 - 1.0 [facility] Comment on above: Performed By: #### U AMIC ####[facility] [address] [place] [phone]. Erasmo Smith WBC 0-2 Abnormal NONE SEEN [facility] Comment on above: Performed By: #### U AMIC ####[facility] [address] [place] [address]Dr. Erasmo Smith CARDIAC ROSA ELENA 3-6on 3 CK [Catalytic activity/Vol] 53 U/L Normal 26-192 [facility] Comment on above: Performed By: #### C MREP #### [facility] [address] [address] [address] Erasmo Smith CK.MB [Mass/Vol] 0.90 ng/mL Normal <=3.60 [facility] Comment on above: Performed By: #### C MREP #### [facility] [address] [address] [address] Erasmo Smith HSTROP 116.7 pg/mL Critically high 4.0-51.3 [facility] Comment on above: Result Comment: CUT- OFF POINTS HAVE BEEN ESTABLISHED BASED ON THE FOURTH UNIVERSAL DEFINITIONS OF MYOCARDIAL INFARCTION. THE UPPER REFERENCE LIMIT (URL) OF TROPONIN, DEFINED THE 99TH PERCENTILE OF cTnI DISTRIBUTION IN A REFERENCE POPULATION, HAS BEEN CONFIRMED THE DECISION THRESHOLD FOR LA DIAGNOSIS. Performed By: #### C MREP #### [facility] [address] [place] [address] Dr. Erasmo Smith CK [Catalytic activity/Vol] 47 U/L Normal 26-192 [facility] Comment on above: Performed By: #### B DIGITAL ACCOUNT COORDINATOR #### [facility] [address] [place] [address] Dr. Erasmo Smith CK.MB [Mass/Vol] 1.00 ng/mL Normal <=3.60 [facility] Comment on above: Performed By: #### B DIGITAL ACCOUNT COORDINATOR #### [facility] [address] [place] [address] Dr. Erasmo Smith HSTROP 154.3 pg/mL Critically high 4.0-51.3 [facility] Comment on above: Result Comment: CUT- OFF POINTS HAVE BEEN ESTABLISHED BASED ON THE FOURTH UNIVERSAL DEFINITIONS OF MYOCARDIAL INFARCTION. THE UPPER REFERENCE LIMIT (URL) OF TROPONIN, DEFINED THE 99TH PERCENTILE OF cTnI DISTRIBUTION IN A REFERENCE POPULATION, HAS BEEN CONFIRMED THE DECISION THRESHOLD FOR LA DIAGNOSIS. Performed By: #### B DIGITAL ACCOUNT COORDINATOR #### [facility] [address] [place] [address] Dr. Erasmo Smith CBC W MANUAL DIFFon 12-02-19 23 ATYPICAL LYMPH # Normal [facility] Comment on above: Performed By: #### C ANGELA #### [facility] [address] [place] [address] Dr. Erasmo Smith ATYPICAL LYMPH % Normal [facility] Comment on above: Performed By: #### C ANGELA #### [facility] [address] [place] [address] Dr. Erasmo Smith BAND # 0.6 103/ul Critically high 0.0-0.3 The [facility] Comment on above: Performed By: #### C ANGELA #### [facility] [address] [place] [address] Dr. Erasmo Smith BAND % 3 % Normal 0-5 [facility] Comment on above: Performed By: #### C ANGELA #### [facility] [address] [address] [address] Erasmo Smith BASOM # 0.00 103/ul Normal 0.00-0.10 [facility] Comment on above: Performed By: #### C BCMAN #### [facility] [address] [address] [address] Erasmo Smith BASOM % 0.0 % Critically low 0.2-2.0 [facility] Comment on above: Performed By: #### C BCMAN #### [facility] [address] [place] [address] Dr. Erasmo Smith BLAST # Normal [facility] Comment on above: Performed By: #### C BCBLAISE #### [facility] [address] [place] [address] Dr. Erasmo Smith BLAST % Normal [facility] Comment on above: Performed By: #### C BCBLAISE #### [facility] [address] [place] [address] Dr. Erasmo Smith CORRECTED WBC Normal 4.0-11.0 [facility] Comment on above: Performed By: #### C BCBLAISE #### [facility] [address] [place] [address] Dr. Erasmo Smith EOS # 0.19 103/ul Normal 0.00-0.70 [facility] Comment on above: Performed By: #### C BCBLAISE #### [facility] [address] [place] [address] Dr. Erasmo Smith EOS% 1.0 % Normal 0.9-7.0 [facility] Comment on above: Performed By: #### C BCBLAISE #### [facility] [address] [place] [address] Dr. Erasmo Smith HCT 32.7 % Critically low 36.0-48.0 [facility] Comment on above: Performed By: #### C BCBLAISE #### [facility] [address] [place] [address] Dr. Erasmo Smith HGB 10.5 g/dl Critically low 12.0-16.0 [facility] Comment on above: Performed By: #### C ANGELA #### [facility] [address] [address] [address] Erasmo Smith LYMPHM # 0.76 103/ul Critically low 1.20-3.80 [facility] Comment on above: Performed By: #### C ANGELA #### [facility] [address] [address] [address] Erasmo Smith LYMPHM% 4.0 % Critically low 20.5-60.0 [facility] Comment on above: Performed By: #### C ANGELA #### [facility] [address] [address] [address] Erasmo Smith MCH 25.9 pg Critically low 26.7-34.0 [facility] Comment on above: Performed By: #### C ANGELA #### [facility] [address] [place] [address] Dr. Erasmo Smith MCHC 32.1 g/dl Normal 29.9-35.2 [facility] Comment on above: Performed By: #### C ANGELA #### [facility] [address] [address] [address] Erasmo Smith MCV 80.5 fL Critically low 81.0-99.0 [facility] Comment on above: Performed By: #### C ANGELA #### [facility] [address] [place] [address] Dr. Erasmo Smith METAMYELOCYTE # Normal [facility] Comment on above: Performed By: #### C ANGELA #### [facility] [address] [address] [address] Erasmo Smith METAMYELOCYTE % Normal [facility] Comment on above: Performed By: #### C ANGELA #### [facility] [address] [address] [address] Erasmo Smith MONOM# 1.14 103/ul Critically high 0.30-0.80 [facility] Comment on above: Performed By: #### C ANGELA #### [facility] [address] [address] [address] Erasmo Smith MONOM% 6.0 % Normal 1.7-12.0 [facility] Comment on above: Performed By: #### C ANGELA #### [facility] [address] [place] [address] Dr. Erasmo Smith MPV 9.4 fL Critically low 9.5-13.5 [facility] Comment on above: Performed By: #### C ANGELA #### [facility] [address] [address] [address] Erasmo Smith MYELOCYTE # Normal [facility] Comment on above: Performed By: #### C ANGELA #### [facility] [address] [address] [address] Erasmo Smith MYELOCYTE % Normal [facility] Comment on above: Performed By: #### C ANGELA #### [facility] [address] [place] [address] Dr. Erasmo Smith NRBC Normal [facility] Comment on above: Performed By: #### C ANGELA #### [facility] [address] [place] [address] Dr. Erasmo Smith PLT 195 103/ul Normal 150-450 [facility] Comment on above: Performed By: #### C ANGELA #### [facility] [address] [place] [address] Dr. Erasmo Smith RBC 4.06 106/ul Critically low 4.20-5.40 [facility] Comment on above: Performed By: #### C ANGELA #### [facility] [address] [place] [address] Dr. Erasmo Smith RDW 17.7 % Critically high 11.0-15.0 [facility] Comment on above: Performed By: #### C ANGELA #### [facility] [address] [place] [address] Dr. Erasmo Smith SEG # 16.34 103/ul Critically high 1.40-6.50 [facility] Comment on above: Performed By: #### C ANGELA #### [facility] [address] [place] [address] Dr. Erasmo Smith SEG % 86.0 % Critically high 43.0-75.0 [facility] Comment on above: Performed By: #### Yamile MILLER #### [facility] [address] [place], [place] [address] Dr. Erasmo Smith WBC 19.0 103/ul Critically high 4.0-11.0 [facility] Comment on above: Performed By: #### Yamile MILLER #### [facility] [address] [place], [place] [address] HEAD WO CONon [...] SALOME MCCORMICK Date: 2022 14:50 Normal [facility] CULTURE BLOODon 2022 Microscopic examination of blood, culture Culture Observations: Aerobic and Anaerobic bottle positive. BCID: E. Coli Culture Observations: Refer to for VIOLET. Isolate 1 Escherichia coli Growth of Normal [facility] Comment on above: Performed By: #### B LDCX2 ####[facility] [address] [place], [place] [id number]. Erasmo Smith Covid-19 PCR (CVDTB)on 11-11 SARS-CoV-2 (COVID-19) RNA EMILY+probe Ql (Unsp spec) Not detected Normal NOT DETECTED [facility] Comment on [...] for this test is supported by the [place] of Health and Human Service's declaration that [...] used). Performed By: #### C MREP #### [facility] [address] [address] [address] Erasmo Smith LACTATE/LACTIC ACIDon 2022 Lactate [Moles/Vol] 1.2 mmol/L Normal 0.4-2.0 [facility] Comment on above: Performed By: #### L ACT ####[facility] [address] [place] [address]DrMeena Smith PH VENOUS BLOODon 2022 PCO2 VENOUS 37.8 mmHg Critically low 40.0-52.0 [facility] Comment on above: Performed By: #### P HVEN ####[facility] [address] [place] [id number]. Erasmo Smith pH VENOUS 7.417 Normal 7.330-7.430 [facility] [place] Comment on above: Performed By: #### P HVEN ####[facility] [address] [place] [id number]. Erasmo Smith PROF 14(COMP METB)on 023 Albumin [Mass/Vol] 3.1 g/dL Critically low 3.4-5.0 [facility] Comment on above: Performed By: #### H ALEXSANDER, CMP ####[facility] [address] [phone]. Erasmo Smith Albumin/Globulin [Mass ratio] 0.8 {ratio} Normal [facility] Comment on above: Performed By: #### H ALEXSANDER, CMP ####[facility] [address] [address]Dr. Erasmo Smith ALP [Catalytic activity/Vol] 194 U/L Critically high 46-116 [facility] [place] Comment on above: Performed By: #### H STROPN, CMP ####[facility] [address] [place] [address]Dr. Erasmo Smith ALT [Catalytic activity/Vol] 37 U/L Normal 14-59 [facility] [place] Comment on above: Performed By: #### H STROPN, CMP ####[facility] [address] [address]Dr. Erasmo Smith Anion gap [Moles/Vol] 14.6 mmol/L Normal Th e [facility] Comment on above: Performed By: #### H STROPN, CMP ####[facility] [address] [place], [place] [address]Dr. Erasmo Smith AST [Catalytic activity/Vol] 32 U/L Normal 15-37 [facility] [place] Comment on above: Performed By: #### H STROPN, CMP ####[facility] [address] [place], [place] [address]Dr. Erasmo Smith Bilirubin [Mass/Vol] 1.0 mg/dL Normal 0.2-1.0 [facility] [place] Comment on above: Performed By: #### H STROPN, CMP ####[facility] [address] [place], [place] [address]Dr. Erasmo Smith Calcium [Mass/Vol] 8.9 mg/dL Normal 8.5-10.1 [facility] Comment on above: Performed By: #### H STROPN, CMP ####[facility] [address] [place], [place] [address]Dr. Erasmo Smith Chloride [Moles/Vol] 103 mmol/L Normal 98-107 [facility] [place] Comment on above: Performed By: #### H STROPN, CMP ####[facility] [address] [place], [place] [address]Dr. Erasmo Smith CO2 [Moles/Vol] 23.6 mmol/L Normal 21.0-32.0 [facility] Comment on above: Performed By: #### H STROPN, CMP ####[facility] [address] [phone]. Erasmo Smith Creatinine [Mass/Vol] 0.69 mg/dL Normal 0.55-1.02 [facility] [place] Comment on above: Performed By: #### H STROPN, CMP ####[facility] [address] [phone]. Erasmo Smith EGFR-AF SAMMARINESE >60 Normal >=60 [facility] Comment on above: Performed By: #### H STROPN, CMP ####[facility] [address] [phone]. Erasmo Smith EGFR-NON AF SAMMARINESE >60 Normal >=60 [facility] [place] Comment on above: Performed By: #### H STROPN, CMP ####[facility] [address] [address]Dr. Erasmo Smith Globulin (S) [Mass/Vol] 4.1 g/dL Normal [facility] [place] Comment on above: Performed By: #### H STROPN, CMP ####[facility] [address] [address]Dr. Erasmo Smith Glucose [Mass/Vol] 121 mg/dL Critically high 74-106 [facility] Comment on above: Performed By: #### H STROPN, CMP ####[facility] [address] [phone]. Erasmo Smith Potassium [Moles/Vol] 3.2 mmol/L Critically low 3.5-5.1 [facility] [place] Comment on above: Performed By: #### H STROPN, CMP ####[facility] [address] [phone]. Erasmo Smith Protein [Mass/Vol] 7.2 g/dL Normal 6.4-8.2 [facility] Comment on above: Performed By: #### H STROPN, CMP ####[facility] [address] [phone]. Erasmo Smith Sodium [Moles/Vol] 138 mmol/L Normal 136-145 [facility] Comment on above: Performed By: #### H ALEXSANDER, CMP ####[facility] [address] [address]Dr. Erasmo Smith Urea nitrogen [Mass/Vol] 17.0 mg/dL Normal 7.0-18.0 [facility] [place] Comment on above: Performed By: #### H ALEXSANDER, CMP ####[facility] [address] [phone]. Erasmo Smith Urea nitrogen/Creatinine [Mass ratio] 24.6 mg/mg Normal [facility] [place] Comment on above: Performed By: #### H ALEXSANDER, CMP ####[facility] [address] [address]Dr. Erasmo Smith PROTIMEon 2022 INR Coag (PPP) [Relative time] 3.58 {INR} Normal [facility] [place] Comment on above: Performed By: #### P T, PTT #### [facility] [address] [place] [address] Dr. Erasmo Smith INR GUIDELINES SEE BELOW Normal [facility] Comment on above: Result Comment: ABNER RED INR: 2.0 - 3.0 CONDITIONS NOT LISTED BELOW 2.5 - 3.5 FOR PROSTHETIC HEART VALVE REPLACEMENT 2.5 - 3.5 RECURRENT THROMBOSIS Performed By: #### P T, PTT #### [facility] [address] [address] [address] Erasmo Smith PT Coag (PPP) [Time] 35.3 s Critically high 9.0-11.6 [facility] [place] Comment on above: Performed By: #### P T, PTT #### [facility] [address] [address] [address] Erasmo Smith PTTon 2022 aPTT Coag (Bld) [Time] 40.3 s Critically high 22.3-36.2 [facility] [place] Comment on above: Performed By: #### P T, PTT #### [facility] [address] [address] [address] Erasmo Smith TROPONIN, HIGH SENSITIVITYon 2022 HSTROP 194.7 pg/mL Critically high 4.0-51.3 [facility] Comment on above: Result Comment: CUT- OFF POINTS HAVE BEEN ESTABLISHED BASED ON THE FOURTH UNIVERSAL DEFINITIONS OF MYOCARDIAL INFARCTION. THE UPPER REFERENCE LIMIT (URL) OF TROPONIN, DEFINED THE 99TH PERCENTILE OF cTnI DISTRIBUTION IN A REFERENCE POPULATION, HAS BEEN CONFIRMED THE DECISION THRESHOLD FOR LA DIAGNOSIS. Performed By: #### C MREP #### [facility] [address] [address] [address] Erasmo Smith HSTROP 218.0 pg/mL Critically high 4.0-51.3 [facility] Comment on above: Result Comment: CUT- OFF POINTS HAVE BEEN ESTABLISHED BASED ON THE FOURTH UNIVERSAL DEFINITIONS OF MYOCARDIAL INFARCTION. THE UPPER REFERENCE LIMIT (URL) OF TROPONIN, DEFINED THE 99TH PERCENTILE OF cTnI DISTRIBUTION IN A REFERENCE POPULATION, HAS BEEN CONFIRMED THE DECISION THRESHOLD FOR LA DIAGNOSIS. Performed By: #### B DIGITAL ACCOUNT COORDINATOR #### [facility] [address] [address] [address] Erasmo Smith XR CHEST 1 Von [...] by: HONG ALSTON Date: 2022 14:18 Normal [facility] MAMM SCREEN 3D TOÑITO CADon 11-26-2022 MG MAMM SCREEN 3D TOÑITO CAD Patient: BREANN STARKS Exam Date: 11/26/2022 : 1945 Gender:F Ordering : DR LUISANA JOHNSON . Admission #: [id number] Family : Order #: [id number] CLICK HERE TO VIEW EXAM RADIOLOGY REPORT [...] Treatments None Family Cancers None LOCATION: [facility] BREAST COMPOSITION: Heterogeneously dense,which may [...] on 11/26/2022 at 14:13 Normal [facility] PROF 14(COMP METB)on 022 Albumin [Mass/Vol] 3.8 g/dL Normal 3.4-5.0 [facility] Comment on above: Performed By: #### C MREP #### [facility] [address] [place] [address] Dr. Erasmo Smith Albumin/Globulin [Mass ratio] 0.8 {ratio} Normal [facility] [place] Comment on above: Performed By: #### C MREP #### [facility] [address] [place] [address] Dr. Erasmo Smith ALP [Catalytic activity/Vol] 102 U/L Normal 46-116 [facility] [place] Comment on above: Performed By: #### C MREP #### [facility] [address] [address] [address] Erasmo Smith ALT [Catalytic activity/Vol] 47 U/L Normal 14-59 [facility] [place] Comment on above: Performed By: #### C MREP #### [facility] [address] [address] [address] Erasmo Smith Anion gap [Moles/Vol] 12.5 mmol/L Normal [facility] Comment on above: Performed By: #### C MREP #### [facility] [address] [address] [address] Erasmo Smith AST [Catalytic activity/Vol] 36 U/L Normal 15-37 [facility] [place] Comment on above: Performed By: #### C MREP #### [facility] [address] [address] [address] Erasmo Smith Bilirubin [Mass/Vol] 0.3 mg/dL Normal 0.2-1.0 [facility] [place] Comment on above: Performed By: #### C MREP #### [facility] [address] [address] [address] Erasmo Smith Calcium [Mass/Vol] 8.9 mg/dL Normal 8.5-10.1 [facility] Comment on above: Performed By: #### C MREP #### [facility] [address] [address] [address] Erasmo Smith Chloride [Moles/Vol] 106 mmol/L Normal 98-107 [facility] [place] Comment on above: Performed By: #### C MREP #### [facility] [address] [address] [address] Erasmo Smith CO2 [Moles/Vol] 26.9 mmol/L Normal 21.0-32.0 [facility] Comment on above: Performed By: #### C MREP #### [facility] [address] [address] [address] Erasmo Smith Creatinine [Mass/Vol] 0.79 mg/dL Normal 0.55-1.02 [facility] [place] Comment on above: Performed By: #### C MREP #### [facility] [address] [address] [address] Erasmo Smith EGFR-AF SAMMARINESE >60 Normal >=60 [facility] Comment on above: Performed By: #### C MREP #### [facility] [address] [address] [address] Erasmo Smith EGFR-NON AF SAMMARINESE >60 Normal >=60 [facility] [place] Comment on above: Performed By: #### C MREP #### [facility] [address] [address] [address] Erasmo Smith Globulin (S) [Mass/Vol] 4.6 g/dL Normal [facility] [place] Comment on above: Performed By: #### C MREP #### [facility] [address] [address] [address] Erasmo Smith Glucose [Mass/Vol] 102 mg/dL Normal 74-106 [facility] Comment on above: Performed By: #### C MREP #### [facility] [address] [address] [address] Erasmo Smith Potassium [Moles/Vol] 4.4 mmol/L Normal 3.5-5.1 [facility] [place] Comment on above: Performed By: #### C MREP #### [facility] [address] [place] [address] Dr. Erasmo Smith Protein [Mass/Vol] 8.4 g/dL Critically high 6.4-8.2 [facility] Comment on above: Performed By: #### C MREP #### [facility] [address] [place] [address] Dr. Erasmo Smith Sodium [Moles/Vol] 141 mmol/L Normal 136-145 [facility] Comment on above: Performed By: #### C MREP #### [facility] [address] [place] [address] Dr. Erasmo Smith Urea nitrogen [Mass/Vol] 28.0 mg/dL Critically high 7.0-18.0 [facility] [place] Comment on above: Performed By: #### C MREP #### [facility] [address] [place] [address] Dr. Erasmo Smith Urea nitrogen/Creatinine [Mass ratio] 35.4 mg/mg Normal [facility] [place] Comment on above: Performed By: #### C MREP #### [facility] [address] [place] [address] Dr. Erasmo Smith CBC AUTO DIFFon 07-12-2022 BASO # 0.1 103/ul Normal 0.0-0.1 [facility] [place] Comment on above: Performed By: #### B DIGITAL ACCOUNT COORDINATOR #### [facility] [address] [address] [address] Erasmo Smith Basophils/100 WBC (Bld) 0.5 % Normal 0.2-2.0 [facility] [place] Comment on above: Performed By: #### B DIGITAL ACCOUNT COORDINATOR #### [facility] [address] [place] [address] Dr. Erasmo Smith EO # 0.2 103/ul Normal 0.0-0.7 [facility] [place] Comment on above: Performed By: #### B DIGITAL ACCOUNT COORDINATOR #### [facility] [address] [place] [address] Dr. Erasmo Smith Eosinophils/100 WBC (Bld) 2.5 % Normal 0.9-7.0 [facility] [place] Comment on above: Performed By: #### B DIGITAL ACCOUNT COORDINATOR #### [facility] [address] [place] [address] Dr. Erasmo Smith Erythrocyte distribution width (RBC) [Ratio] 17.2 % Critically high 11.0-15.0 [facility] [place] Comment on above: Performed By: #### B DIGITAL ACCOUNT COORDINATOR #### [facility] [address] [place] [address] Dr. Erasmo Smith Hematocrit (Bld) [Volume fraction] 35.0 % Critically low 36.0-48.0 [facility] [place] Comment on above: Performed By: #### B DIGITAL ACCOUNT COORDINATOR #### [facility] [address] [place] [address] Dr. Erasmo Smith Hemoglobin (Bld) [Mass/Vol] 11.3 g/dL Critically low 12.0-16.0 [facility] [place] Comment on above: Performed By: #### B DIGITAL ACCOUNT COORDINATOR #### [facility] [address] [place] [address] Dr. Erasmo Smith IG # 0.02 10e3/ul Normal 0.00-0.03 [facility] [place] Comment on above: Performed By: #### B DIGITAL ACCOUNT COORDINATOR #### [facility] [address] [place] [address] Dr. Erasmo Smith IG % 0.2 % Normal 0.0-0.5 [facility] [place] Comment on above: Performed By: #### B DIGITAL ACCOUNT COORDINATOR #### [facility] [address] [place] [address] Dr. Erasmo Smith LYMPH # 2.3 103/ul Normal 1.2-3.8 [facility] [place] Comment on above: Performed By: #### B DIGITAL ACCOUNT COORDINATOR #### [facility] [address] [place] [address] Dr. Erasmo Smith Lymphocytes/100 WBC (Bld) 25.4 % Normal 20.5-60.0 [facility] [place] Comment on above: Performed By: #### B DIGITAL ACCOUNT COORDINATOR #### [facility] [address] [place] [address] Dr. Erasmo Smith MANUAL DIFF REQ NO Normal [facility] Comment on above: Performed By: #### B DIGITAL ACCOUNT COORDINATOR #### [facility] [address] [place] [address] Dr. Erasmo Smith MCH (RBC) [Entitic mass] 25.5 pg Critically low 26.7-34.0 [facility] [place] Comment on above: Performed By: #### B DIGITAL ACCOUNT COORDINATOR #### [facility] [address] [place] [address] Dr. Erasmo Smith MCHC (RBC) [Mass/Vol] 32.3 g/dL Normal 29.9-35.2 [facility] [place] Comment on above: Performed By: #### B DIGITAL ACCOUNT COORDINATOR #### [facility] [address] [place] [address] Dr. Erasmo Smith MCV (RBC) [Entitic vol] 78.8 fL Critically low 81.0-99.0 [facility] [place] Comment on above: Performed By: #### B DIGITAL ACCOUNT COORDINATOR #### [facility] [address] [place] [address] Dr. Erasmo Smith MONO # 0.7 103/ul Normal 0.3-0.8 [facility] [place] Comment on above: Performed By: #### B DIGITAL ACCOUNT COORDINATOR #### [facility] [address] [place] [address] Dr. Erasmo Smith Monocytes/100 WBC (Bld) 7.5 % Normal 1.7-12.0 [facility] [place] Comment on above: Performed By: #### B DIGITAL ACCOUNT COORDINATOR #### [facility] [address] [place] [address] Dr. Erasmo Smith NEUT # 5.9 103/ul Normal 1.4-6.5 [facility] Comment on above: Performed By: #### B DIGITAL ACCOUNT COORDINATOR #### [facility] [address] [place] [address] Dr. Erasmo Smith Neutrophils/100 WBC (Bld) 63.9 % Normal 43.0-75.0 [facility] Comment on above: Performed By: #### B DIGITAL ACCOUNT COORDINATOR #### [facility] [address] [place] [address] Dr. Erasmo Smith Platelet mean volume (Bld) [Entitic vol] 9.0 fL Critically low 9.5-13.5 [facility] [place] Comment on above: Performed By: #### B DIGITAL ACCOUNT COORDINATOR #### [facility] [address] [place] [address] Dr. Erasmo Smith PLT 305 103/ul Normal 150-450 [facility] Comment on above: Performed By: #### B DIGITAL ACCOUNT COORDINATOR #### [facility] [address] [place] [address] Dr. Erasmo Smith RBC 4.44 106/ul Normal 4.20-5.40 [facility] Comment on above: Performed By: #### B DIGITAL ACCOUNT COORDINATOR #### [facility] [address] [place] [address] Dr. Erasmo Smith WBC 9.2 103/ul Normal 4.0-11.0 [facility] Comment on above: Performed By: #### B DIGITAL ACCOUNT COORDINATOR #### [facility] [address] [place] [address] CHEST WO CONon CT CHEST WO CON EXAMINATION: CT CHES [...] by: PAULA BROWN Date: 2022-05-27 15:27 Normal [facility] [place] HEMOGLOBINon 04-20-2022 Hemoglobin (Bld) [Mass/Vol] 10.6 g/dL Critically low 12.0-16.0 [facility] [place] Comment on above: Performed By: #### H GB ####[facility] [address] [address]Dr. Erasmo Smith CULTURE SPUTUMon 04-02-2022 CULTURE SPUTUM Isolate 1 Pseudomonas aeruginosa Light growth of ORGANISM 1 Pseudomonas aeruginosa ANTIBIOTIC M.I.C RX STATUS Piperacillin/Tazobacta m 8 S F Ceftazidime 2 S F Imipenem 1 S F Amikacin <=2 S F Gentamicin <=1 S F Tobramycin <=1 S F Ciprofloxacin <=0.25 S F Levofloxacin 0.25 S F Normal [facility] [place] Comment on above: Performed By: #### S PUTCX ####[facility] [address] [place], [place] [address]Dr. Erasmo Smith CYTOLOGYon 03-30-2022 SENT TO REF LAB 03/31/22 Normal [facility] Comment on above: Performed By: #### C YTO #### [facility] [address] [place] [address] Dr. Erasmo Smith SPUTUM GRAM STAINon 03-30-20 COMMENTS Normal [facility] [place] Comment on above: Performed By: #### B DIGITAL ACCOUNT COORDINATOR #### [facility] [address] [place] [address] Dr. Erasmo Smith DIPHTHEROIDS Normal [facility] [place] Comment on above: Performed By: #### B DIGITAL ACCOUNT COORDINATOR #### [facility] [address] [address] [address] Erasmo Smith EPITHELIALS <25 Normal [facility] Comment on above: Performed By: #### B DIGITAL ACCOUNT COORDINATOR #### [facility] [address] [address] [address] Erasmo Smith FUNGAL ELEMENTS Normal [facility] Comment on above: Performed By: #### B DIGITAL ACCOUNT COORDINATOR #### [facility] [address] [address] [address] Erasmo Smith GRAM NEG BACILLI FEW Normal [facility] Comment on above: Performed By: #### B DIGITAL ACCOUNT COORDINATOR #### [facility] [address] [address] [address] Erasmo CINTRON NEG DIPPLOCOCCI Normal [facility] [place] Comment on above: Performed By: #### B DIGITAL ACCOUNT COORDINATOR #### [facility] [address] [address] [address] Erasmo Smith GRAM POS BACILLI Normal [facility] Comment on above: Performed By: #### B DIGITAL ACCOUNT COORDINATOR #### [facility] [address] [address] [address] Erasmo Smith GRAM POSITIVE COCCI MANY Normal [facility] Comment on above: Performed By: #### B DIGITAL ACCOUNT COORDINATOR #### [facility] [address] [address] [address] Erasmo Smith WBC (Bld) [#/Vol] 10*3/uL Normal [facility] Comment on above: Performed By: #### B DIGITAL ACCOUNT COORDINATOR #### [facility] [address] [address] [address] Erasmo Smith SPUTUM CULTUREon 03-01-2022 Epithelial cells LM Ql (Urine sed) Few Normal [facility] Comment on above: Performed By: #### C XSPTUM ####[facility] [address] [place], [place] [address]Dr. Erasmo Smith Gram Stain Evaluation Comment Normal [facility] Comment on above: Result Comment: This specimen is of good quality and is acceptable for routine bacterial culture. Performed By: #### C XSPTUM ####[facility] [address] [address]Dr. Erasmo Smith Lower Respiratory Culture Final report Normal [facility] [place] Comment on above: Performed By: #### C XSPTUM ####[facility] [address] [address]Dr. Erasmo Smith Result 1 Comment Normal [facility] [place] Comment on above: Result Comment: Few gram positive cocci Performed By: #### C XSPTUM ####[facility] [address] [place], [place] [address]Dr. Erasmo Smith Result Comment: Rout ine respiratory adria Result 2 Normal [facility] Comment on above: Performed By: #### C XSPTUM ####[facility] [id number] [place], [place] [address]Dr. Erasmo Smith Result 3 Normal [facility] Comment on above: Performed By: #### C XSPTUM ####[facility] [id number] [place], [place] [address]Dr. Erasmo Smith Result 4 Normal [facility] Comment on above: Performed By: #### C XSPTUM ####[facility] [address] [place], [place] [address]Dr. Erasmo Smith White Blood Cells Few Normal [facility] Comment on above: Performed By: #### C XSPTUM ####[facility] [id number] [place], [place] [address]DrMeena Smith BNPon 02-24-2022 Natriuretic peptide B (Bld) [Mass/Vol] 319.0 pg/mL Normal <=900.0 [facility] Comment on above: Performed By: #### B DIGITAL ACCOUNT COORDINATOR #### [facility] [address] [place] [address] Dr. Erasmo Smith CBC AUTO DIFFon 02-24-2022 BASO # 0.1 103/ul Normal 0.0-0.1 [facility] [place] Comment on above: Performed By: #### C MREP #### [facility] [address] [place] [address] Dr. Erasmo Smith Basophils/100 WBC (Bld) 0.5 % Normal 0.2-2.0 [facility] Comment on above: Performed By: #### C MREP #### [facility] [address] [place] [address] Dr. Erasmo Smith EO # 0.3 103/ul Normal 0.0-0.7 [facility] [place] Comment on above: Performed By: #### C MREP #### [facility] [address] [place] [address] Dr. Erasmo Smith Eosinophils/100 WBC (Bld) 3.1 % Normal 0.9-7.0 [facility] [place] Comment on above: Performed By: #### C MREP #### [facility] [address] [place] [address] Dr. Erasmo Smith Erythrocyte distribution width (RBC) [Ratio] 15.1 % Critically high 11.0-15.0 [facility] [place] Comment on above: Performed By: #### C MREP #### [facility] [address] [place] [address] Dr. Erasmo Smith Hematocrit (Bld) [Volume fraction] 33.9 % Critically low 36.0-48.0 [facility] Comment on above: Performed By: #### C MREP #### [facility] [address] [place] [address] Dr. Erasmo Smith Hemoglobin (Bld) [Mass/Vol] 10.7 g/dL Critically low 12.0-16.0 [facility] [place] Comment on above: Performed By: #### C MREP #### [facility] [address] [place] [address] Dr. Erasmo Smith IG # 0.03 10e3/ul Normal 0.00-0.03 [facility] [place] Comment on above: Performed By: #### C MREP #### [facility] [address] [place] [address] Dr. Erasmo Smith IG % 0.3 % Normal 0.0-0.5 [facility] [place] Comment on above: Performed By: #### C MREP #### [facility] [address] [place] [address] Dr. Erasmo Smith LYMPH # 2.8 103/ul Normal 1.2-3.8 [facility] Comment on above: Performed By: #### C MREP #### [facility] [address] [address] [address] Erasmo Smith Lymphocytes/100 WBC (Bld) 30.6 % Normal 20.5-60.0 [facility] [place] Comment on above: Performed By: #### C MREP #### [facility] [address] [address] [address] Erasmo Smith MANUAL DIFF REQ NO Normal [facility] Comment on above: Performed By: #### C MREP #### [facility] [address] [place] [address] Dr. Erasmo Smith MCH (RBC) [Entitic mass] 26.9 pg Normal 26.7-34.0 [facility] [place] Comment on above: Performed By: #### C MREP #### [facility] [address] [place] [address] Dr. Erasmo Smith MCHC (RBC) [Mass/Vol] 31.6 g/dL Normal 29.9-35.2 [facility] [place] Comment on above: Performed By: #### C MREP #### [facility] [address] [place] [address] Dr. Erasmo Smith MCV (RBC) [Entitic vol] 85.2 fL Normal 81.0-99.0 [facility] [place] Comment on above: Performed By: #### C MREP #### [facility] [address] [place] [address] Dr. Erasmo Smith MONO # 0.7 103/ul Normal 0.3-0.8 [facility] Comment on above: Performed By: #### C MREP #### [facility] [address] [place] [address] Dr. Erasmo Smith Monocytes/100 WBC (Bld) 7.9 % Normal 1.7-12.0 [facility] Comment on above: Performed By: #### C MREP #### [facility] [address] [place] [address] Dr. Erasmo Smith NEUT # 5.3 103/ul Normal 1.4-6.5 [facility] Comment on above: Performed By: #### C MREP #### [facility] [address] [place], [place] [address] Dr. Erasmo Smith Neutrophils/100 WBC (Bld) 57.6 % Normal 43.0-75.0 [facility] [place] Comment on above: Performed By: #### C MREP #### [facility] [id number] Erasmo Smith Platelet mean volume (Bld) [Entitic vol] 9.0 fL Critically low 9.5-13.5 [facility] [place] Comment on above: Performed By: #### C MREP #### [facility] [address] [address] [address] Erasmo Smith PLT 249 103/ul Normal 150-450 [facility] [place] Comment on above: Performed By: #### C MREP #### [facility] [address] [address] [address] Erasmo Smith RBC 3.98 106/ul Critically low 4.20-5.40 [facility] Comment on above: Performed By: #### C MREP #### [facility] [id number] Erasmo Smith WBC 9.1 103/ul Normal 4.0-11.0 [facility] Comment on above: Performed By: #### C MREP #### [facility] [address] [address] [address] Erasmo Smith CTA CHEST WO W CONon 06-15-2 022 CTA CHEST WO W CON EXAMINATION: CTA KAREN ST WO W CON HISTORY: SHORTNESS OF BREATH [...] by: PAULA BROWN Date: 2022-02-24 18:24 Normal [facility] D-DIMERon 02-24-2022 D-DIMER 1.36 mg/L FEU Critically high <=0.59 [facility] Comment on above: Performed By: #### D DIM #### [facility] [address] [address] [address] Erasmo Smith D-DIMER COMMENTS SEE BELOW Normal [facility] Comment on above: Result Comment: [...] hospitalization. Performed By: #### D DIM #### [facility] [address] [address] [address] Erasmo Smith PROF 14(COMP METB)on 022 Albumin [Mass/Vol] 3.6 g/dL Normal 3.4-5.0 [facility] Comment on above: Performed By: #### C MREP #### [facility] [address] [address] [address] Erasmo Smith Albumin/Globulin [Mass ratio] 0.8 {ratio} Normal [facility] [place] Comment on above: Performed By: #### C MREP #### [facility] [address] [address] [address] Erasmo Smith ALP [Catalytic activity/Vol] 95 U/L Normal 46-116 [facility] Comment on above: Performed By: #### C MREP #### [facility] [address] [address] [address] Erasmo Smith ALT [Catalytic activity/Vol] 45 U/L Normal 14-59 [facility] Comment on above: Performed By: #### C MREP #### [facility] [address] [address] [address] Erasmo Smith Anion gap [Moles/Vol] 15.9 mmol/L Normal [facility] Comment on above: Performed By: #### C MREP #### [facility] [address] [place] [address] Dr. Erasmo Smith AST [Catalytic activity/Vol] 33 U/L Normal 15-37 [facility] Comment on above: Performed By: #### C MREP #### [facility] [address] [address] [address] Erasmo Smith Bilirubin [Mass/Vol] 0.5 mg/dL Normal 0.2-1.0 [facility] Comment on above: Performed By: #### C MREP #### [facility] [address] [place] [address] Dr. Erasmo Smith Calcium [Mass/Vol] 9.1 mg/dL Normal 8.5-10.1 [facility] Comment on above: Performed By: #### C MREP #### [facility] [address] [address] [address] Erasmo Smith Chloride [Moles/Vol] 103 mmol/L Normal 98-107 [facility] Comment on above: Performed By: #### C MREP #### [facility] [address] [address] [address] Erasmo Smith CO2 [Moles/Vol] 25.1 mmol/L Normal 21.0-32.0 [facility] Comment on above: Performed By: #### C MREP #### [facility] [address] [address] [address] Erasmo Smith Creatinine [Mass/Vol] 0.77 mg/dL Normal 0.55-1.02 [facility] Comment on above: Performed By: #### C MREP #### [facility] [address] [address] [address] Erasmo Smith EGFR-AF SAMMARINESE >60 Normal >=60 [facility] Comment on above: Performed By: #### C MREP #### [facility] [address] [address] [address] Erasmo Smith EGFR-NON AF SAMMARINESE >60 Normal >=60 [facility] Comment on above: Performed By: #### C MREP #### [facility] [address] [place] [address] Dr. Erasmo Smith Globulin (S) [Mass/Vol] 4.3 g/dL Normal [facility] Comment on above: Performed By: #### C MREP #### [facility] [address] [place] [address] Dr. Erasmo Smith Glucose [Mass/Vol] 92 mg/dL Normal 74-106 [facility] Comment on above: Performed By: #### C MREP #### [facility] [address] [place] [address] Dr. Erasmo Smith Potassium [Moles/Vol] 4.0 mmol/L Normal 3.5-5.1 [facility] Comment on above: Performed By: #### C MREP #### [facility] [address] [place] [address] Dr. Erasmo Smith Protein [Mass/Vol] 7.9 g/dL Normal 6.4-8.2 [facility] Comment on above: Performed By: #### C MREP #### [facility] [address] [place] [address] Dr. Erasmo Smith Sodium [Moles/Vol] 140 mmol/L Normal 136-145 [facility] Comment on above: Performed By: #### C MREP #### [facility] [address] [address] [address] Erasmo Smith Urea nitrogen [Mass/Vol] 17.0 mg/dL Normal 7.0-18.0 [facility] Comment on above: Performed By: #### C MREP #### [facility] [address] [address] [address] Erasmo Smith Urea nitrogen/Creatinine [Mass ratio] 22.1 mg/mg Normal [facility] Comment on above: Performed By: #### C MREP #### [facility] [address] [address] [address] Erasmo Smith PROTIMEon 02-24-2022 INR Coag (PPP) [Relative time] 2.28 {INR} Normal [facility] Comment on above: Performed By: #### P T, PTT ####[facility] [id number] [address]Dr. Erasmo Smith INR GUIDELINES SEE BELOW Normal [facility] Comment on above: Result Comment: ABNER RED INR: 2.0 - 3.0 CONDITIONS NOT LISTED BELOW 2.5 - 3.5 FOR PROSTHETIC HEART VALVE REPLACEMENT 2.5 - 3.5 RECURRENT THROMBOSIS Performed By: #### P T, PTT ####[facility] [id number] [address]Dr. Erasmo Smith PT Coag (PPP) [Time] 23.3 s Critically high 9.0-11.6 [facility] Comment on above: Performed By: #### P T, PTT ####[facility] [id number] [address]Dr. Erasmo Smith PTTon 02-24-2022 aPTT Coag (Bld) [Time] 34.7 s Normal 22.3-36.2 [facility] Comment on above: Performed By: #### P T, PTT ####[facility] [id number] [address]Dr. Erasmo Smith TROPONIN, HIGH SENSITIVITYon 02-24-2022 HSTROP 6.6 pg/mL Normal 4.0-51.3 [facility] Comment on above: Result Comment: CUT- OFF POINTS HAVE BEEN ESTABLISHED BASED ON THE FOURTH UNIVERSAL DEFINITIONS OF MYOCARDIAL INFARCTION. THE UPPER REFERENCE LIMIT (URL) OF TROPONIN, DEFINED THE 99TH PERCENTILE OF cTnI DISTRIBUTION IN A REFERENCE POPULATION, HAS BEEN CONFIRMED THE DECISION THRESHOLD FOR LA DIAGNOSIS. Performed By: #### C MREP #### [facility] [address] [place], [place] [address] Dr. Erasmo Smith PROTHROMBIN TIMEon INR Coag (PPP) [Relative time] 1.2 {INR} High 0.86-1.16 [facility] Comment on above: Result Comment: INR Theraputic Range: 2.0-3.[address] [facility] [id number] [facility] [address] PT Coag (PPP) [Time] 12.7 s Normal 9.3-12.7 [facility] ANTICOAGULANT COUMADIN Normal [facility] Vital Signs Date Time Vital Sign Value Performing Clinician Faci lity 12-17-2024 10:58-0400 Body height 149.9 cm Renny Hansen MD Work Phone: [facility] 12-17-2024 10:58-0400 Body mass index (BMI) [Ratio] 44.84 kg/m2 Renny Hansen MD Work Phone: [facility] 12-17-2024 10:58-0400 Body weight 100.7 kg Renny Hansen MD Work Phone: [facility] 12-17-2024 10:58-0400 Diastolic blood pressure 68 mm[Hg] Renny Hansen MD Work Phone: [facility] 12-17-2024 10:58-0400 Heart rate 75 /min Renny Hansen MD Work Phone: [facility] 12-17-2024 10:58-0400 SaO2% (BldA) [Mass fraction] 95 % Renny Hansen MD Work Phone: [facility] 12-17-2024 10:58-0400 Systolic blood pressure 130 mm[Hg] Renny Hansen MD Work Phone: [facility] 10-29-2024 14:47-0500 Body weight 98.42 kg Renny Hansen II Work Phone: [facility] 10-29-2024 14:47-0500 Diastolic blood pressure 65 mm[Hg] Renny Hansen II Work Phone: [facility] 10-29-2024 14:47-0500 Heart rate 66 /min Renny Hansen II Work Phone: [facility] 10-29-2024 14:47-0500 Respiratory rate 20 /min Renny Hansen II Work Phone: [facility] 10-29-2024 14:47-0500 SaO2% (BldA) [Mass fraction] 97 % Renny Hansen II Work Phone: [facility] 10-29-2024 14:47-0500 Systolic blood pressure 150 mm[Hg] Renny Hansen II Work Phone: [facility] 10-17-2024 11:35-0500 Body height 149.9 cm Renny Hansen MD Work Phone: [facility] 10-17-2024 11:35-0500 Body mass index (BMI) [Ratio] 44.23 kg/m2 Renny Hansen MD Work Phone: [facility] 10-17-2024 11:35-0500 Body weight 99.34 kg Renny Hansen MD Work Phone: [facility] 10-17-2024 11:35-0500 Diastolic blood pressure 76 mm[Hg] Renny Hansen MD Work Phone: [facility] 10-17-2024 11:35-0500 Heart rate 61 /min Renny Hansen MD Work Phone: [facility] 10-17-2024 11:35-0500 SaO2% (BldA) [Mass fraction] 97 % Renny Hansen MD Work Phone: [facility] 10-17-2024 11:35-0500 Systolic blood pressure 138 mm[Hg] Renny Hansen MD Work Phone: [facility] 10-04-2024 14:56-0500 Body height 149.9 cm Dmitriy Duque DO Work Phone: [facility] 10-04-2024 14:56-0500 Body mass index (BMI) [Ratio] 45.04 kg/m2 Dmitriy Duque DO Work Phone: [facility] 10-04-2024 14:56-0500 Body weight 101.15 kg Dmitriy Duque DO Work Phone: [facility] 10-04-2024 14:56-0500 Diastolic blood pressure 70 mm[Hg] Dmitriy Duque DO Work Phone: [facility] 10-04-2024 14:56-0500 Systolic blood pressure 120 mm[Hg] Dmitriy Duque DO Work Phone: [facility] 09-25-2024 11:13-0500 Body height 149.86 cm Renny Hansen II Work Phone: [facility] 09-25-2024 11:13-0500 Body mass index (BMI) [Ratio] 44.6 kg/m2 Renny Hansen II Work Phone: [facility] 09-25-2024 11:13-0500 Body temperature 97.3 [degF] Renny Hansen II Work Phone: [facility] 09-25-2024 11:13-0500 Body weight 100.24 kg Renny Hansen II Work Phone: [facility] 09-25-2024 11:13-0500 Diastolic blood pressure 69 mm[Hg] Renny Hansen II Work Phone: [facility] 09-25-2024 11:13-0500 Heart rate 72 /min Renny Hansen II Work Phone: [facility] 09-25-2024 11:13-0500 Respiratory rate 16 /min Renny Hansen II Work Phone: [facility] 09-25-2024 11:13-0500 SaO2% (BldA) [Mass fraction] 98 % Renny Hansen II Work Phone: [facility] 09-25-2024 11:13-0500 Systolic blood pressure 173 mm[Hg] Renny Hansen II Work Phone: [facility] 09-19-2024 15:12-0500 Body height 149.9 cm Luisana Leal DIGITAL ACCOUNT COORDINATOR Work Phone: [facility] 09-19-2024 15:12-0500 Body mass index (BMI) [Ratio] 44.07 kg/m2 Luisana Leal DIGITAL ACCOUNT COORDINATOR Work Phone: [facility] 09-19-2024 15:12-0500 Body weight 98.97 kg Luisana Leal DIGITAL ACCOUNT COORDINATOR Work Phone: [facility] 09-19-2024 15:12-0500 Diastolic blood pressure 68 mm[Hg] Luisana Leal DIGITAL ACCOUNT COORDINATOR Work Phone: [facility] 09-19-2024 15:12-0500 Heart rate 63 /min Luisana Leal DIGITAL ACCOUNT COORDINATOR Work Phone: [facility] 09-19-2024 15:12-0500 Respiratory rate 18 /min Luisana Leal DIGITAL ACCOUNT COORDINATOR Work Phone: [facility] 09-19-2024 15:12-0500 SaO2% (BldA) [Mass fraction] 95 % Luisana Leal DIGITAL ACCOUNT COORDINATOR Work Phone: [facility] 09-19-2024 15:12-0500 Systolic blood pressure 128 mm[Hg] Luisana Leal DIGITAL ACCOUNT COORDINATOR Work Phone: [facility] 09-18-2024 10:09-0500 Body mass index (BMI) [Ratio] 43.83 kg/m2 Salome Brightett DO Work Phone: [facility] 09-18-2024 10:09-0500 Body weight 98.43 kg Christopher Jose Roberto DO Work Phone: [facility] 09-18-2024 10:09-0500 Diastolic blood pressure 86 mm[Hg] Christopher Jose Roberto DO Work Phone: [facility] 09-18-2024 10:09-0500 Heart rate 66 /min Christopher Jose Roberto DO Work Phone: [facility] 09-18-2024 10:09-0500 SaO2% (BldA) [Mass fraction] 91 % [place] Jose Roberto DO Work Phone: [facility] 09-18-2024 10:09-0500 Systolic blood pressure 136 mm[Hg] Salome Cid DO Work Phone: [facility] 09-10-2024 13:00-0500 Body temperature 97.2 [degF] Renny Hansen II Work Phone: [facility] 09-10-2024 13:00-0500 Diastolic blood pressure 67 mm[Hg] Renny Hansen II Work Phone: [facility] 09-10-2024 13:00-0500 Heart rate 72 /min Renny Hansen II Work Phone: [facility] 09-10-2024 13:00-0500 Respiratory rate 19 /min Renny Hansen II Work Phone: [facility] 09-10-2024 13:00-0500 SaO2% (BldA) [Mass fraction] 96 % Renny Hansen II Work Phone: [facility] 09-10-2024 13:00-0500 Systolic blood pressure 157 mm[Hg] Renny Hansen II Work Phone: [facility] 08-24-2024 13:00-0500 Body height 149.86 cm Renny Hansen II Work Phone: [facility] 08-24-2024 13:00-0500 Body mass index (BMI) [Ratio] 45.4 kg/m2 Renny Hansen II Work Phone: [facility] 08-24-2024 13:00-0500 Body temperature 97.8 [degF] Renny Hansen II Work Phone: [facility] 08-24-2024 13:00-0500 Body weight 102.05 kg Renny Hansen II Work Phone: [facility] 08-24-2024 13:00-0500 Diastolic blood pressure 69 mm[Hg] Renny Hansen II Work Phone: [facility] 08-24-2024 13:00-0500 Heart rate 61 /min Renny Hansen II Work Phone: [facility] 08-24-2024 13:00-0500 Respiratory rate 16 /min Renny Hansen II Work Phone: [facility] 08-24-2024 13:00-0500 SaO2% (BldA) [Mass fraction] 98 % Renny Hansen II Work Phone: [facility] 08-24-2024 13:00-0500 Systolic blood pressure 137 mm[Hg] Renny Hansen II Work Phone: [facility] 08-16-2024 10:33-0500 Body height 149.9 cm Renny Hansen MD Work Phone: [facility] 08-16-2024 10:33-0500 Body mass index (BMI) [Ratio] 44.23 kg/m2 Renny Hansen MD Work Phone: [facility] 08-16-2024 10:33-0500 Body weight 99.34 kg Renny Hansen MD Work Phone: [facility] 08-16-2024 10:33-0500 Diastolic blood pressure 80 mm[Hg] Renny Hansen MD Work Phone: [facility] 08-16-2024 10:33-0500 Heart rate 66 /min Renny Hansen MD Work Phone: [facility] 08-16-2024 10:33-0500 SaO2% (BldA) [Mass fraction] 95 % Renny Hansen MD Work Phone: [facility] 08-16-2024 10:33-0500 Systolic blood pressure 132 mm[Hg] Renny Hansen MD Work Phone: [facility] 08-02-2024 10:51-0500 Body height 149.9 cm Renny Hansen MD Work Phone: [facility] 08-02-2024 10:51-0500 Body mass index (BMI) [Ratio] 44.84 kg/m2 Renny Hansen MD Work Phone: [facility] 08-02-2024 10:51-0500 Body temperature 98.4 [degF] Renny Hansen MD Work Phone: [facility] 08-02-2024 10:51-0500 Body weight 100.7 kg Renny Hansen MD Work Phone: [facility] 08-02-2024 10:51-0500 Diastolic blood pressure 72 mm[Hg] Renny Hansen MD Work Phone: [facility] 08-02-2024 10:51-0500 Heart rate 60 /min Renny Hansen MD Work Phone: [facility] 08-02-2024 10:51-0500 SaO2% (BldA) [Mass fraction] 95 % Renny Hansen MD Work Phone: [facility] 08-02-2024 10:51-0500 Systolic blood pressure 134 mm[Hg] Renny Hansen MD Work Phone: [facility] 07-24-2024 10:48-0500 Body height 149.9 cm Eleanor Hemmer PA Work Phone: [facility] 07-24-2024 10:48-0500 Body mass index (BMI) [Ratio] 45.85 kg/m2 Eleanor Hemmer PA Work Phone: [facility] 07-24-2024 10:48-0500 Body weight 102.97 kg Eleanor Hemmer PA Work Phone: [facility] 07-24-2024 10:48-0500 Diastolic blood pressure 68 mm[Hg] Eleanor Hemmer PA Work Phone: [facility] 07-24-2024 10:48-0500 Heart rate 60 /min Eleanor Hemmer PA Work Phone: [facility] 07-24-2024 10:48-0500 SaO2% (BldA) [Mass fraction] 96 % Eleanor Hemmer PA Work Phone: [facility] 07-24-2024 10:48-0500 Systolic blood pressure 124 mm[Hg] Eleanor SANTOS Work Phone: [facility] 07-05-2024 08:50-0400 Body height 149.9 cm Renny Hansen MD Work Phone: [facility] 07-05-2024 08:50-0400 Body mass index (BMI) [Ratio] 46.66 kg/m2 Renny Hansen MD Work Phone: [facility] 07-05-2024 08:50-0400 Body weight 104.78 kg Renny Hansen MD Work Phone: [facility] 07-05-2024 08:50-0400 Diastolic blood pressure 74 mm[Hg] Renny Hansen MD Work Phone: [facility] 07-05-2024 08:50-0400 Heart rate 69 /min Renny Hansen MD Work Phone: [facility] 07-05-2024 08:50-0400 SaO2% (BldA) [Mass fraction] 96 % Renny Hansen MD Work Phone: [facility] 07-05-2024 08:50-0400 Systolic blood pressure 130 mm[Hg] Renny Hansen MD Work Phone: [facility] 05-31-2024 13:46-0400 Body height 149.9 cm Monster Calvillo DIGITAL ACCOUNT COORDINATOR Work Phone: [facility] 05-31-2024 13:46-0400 Body mass index (BMI) [Ratio] 47.87 kg/m2 Monster Calvillo DIGITAL ACCOUNT COORDINATOR Work Phone: [facility] 05-31-2024 13:46-0400 Body temperature 98.4 [degF] Monster Calvillo DIGITAL ACCOUNT COORDINATOR Work Phone: [facility] 05-31-2024 13:46-0400 Body weight 107.5 kg Monster Calvillo DIGITAL ACCOUNT COORDINATOR Work Phone: [facility] 05-31-2024 13:46-0400 Diastolic blood pressure 80 mm[Hg] Monster Kilpatrickpatrick DIGITAL ACCOUNT COORDINATOR Work Phone: [facility] 05-31-2024 13:46-0400 Heart rate 73 /min Monster Kilpatrickpatrick DIGITAL ACCOUNT COORDINATOR Work Phone: [facility] 05-31-2024 13:46-0400 SaO2% (BldA) [Mass fraction] 95 % Monster Kilpatrickpatrick DIGITAL ACCOUNT COORDINATOR Work Phone: [facility] 05-31-2024 13:46-0400 Systolic blood pressure 140 mm[Hg] Monster Kilpatrickpatrick DIGITAL ACCOUNT COORDINATOR Work Phone: [facility] 05-22-2024 13:17-0400 Body height 149.9 cm Boo Sherwin PA-C Work Phone: [facility] 05-22-2024 13:17-0400 Body mass index (BMI) [Ratio] 44.43 kg/m2 Boo Sherwin PA-C Work Phone: [facility] 05-22-2024 13:17-0400 Body weight 99.79 kg Boo Sherwin PA-C Work Phone: [facility] 03-02-2024 11:51-0400 Blood Pressure Location Jair NILL [facility] 03-02-2024 11:51-0400 Diastolic blood pressure 75 mm[Hg] Jair PARKL [facility] [place] 03-02-2024 11:51-0400 Heart rate 71 /min Jair NILL [facility] 03-02-2024 11:51-0400 Respiratory rate 16 /min Jair NILL [facility] 03-02-2024 11:51-0400 Systolic blood pressure 118 mm[Hg] Jair PARKL [facility] 10-07-2021 16:00-0500 Body height 146.69 cm Hong Nevarez Other [email or web address] Other 10-07-2021 16:00-0500 Body mass index (BMI) [Ratio] 51.01 kg/m2 Hong Nevarez Other [email or web address] Other 10-07-2021 16:00-0500 Body weight 109.77 kg Hong Nevarez Other [email or web address] Other 08-26-2021 15:15-0500 Body height 146.69 cm Hong Nevarez Other [email or web address] Other 08-26-2021 15:15-0500 Body mass index (BMI) [Ratio] 51.07 kg/m2 Hong Nevarez Other [email or web address] Other 08-26-2021 15:15-0500 Body weight 109.91 kg Hong Nevarez Other [email or web address] Other Encounters Encounter Date Encounter Type Care Provider Facility Start: 01-22-2025 End: 01-22-2025 ambulatory DMITRIY HENNESSY [facility] Start: 01-17-2025 End: 01-17-2025 ambulatory JAIR FLORIAN [facility] Start: 01-03-2025 ambulatory Renny Hansen Facility:[facility] Start: 01-01-2025 ambulatory [facility] Start: 12-24-2024 End: 12-24-2024 ambulatory [facility] Start: 12-21-2024 End: 12-21-2024 Clinisync Result Encounter Generic External Data Provider [facility] External [facility] Unsolicited Start: 12-21-2024 End: 12-21-2024 Clinisync Result Encounter Generic External Data Provider [facility] External Department Unsolicited Start: 12-17-2024 End: 12-17-2024 Bamboo flowsheet Renny Hansen MD Work Phone: [facility] Start: 12-17-2024 End: 12-17-2024 Bamboo flowsheet Renny Hansen MD Work Phone: [facility] Start: 12-17-2024 End: 12-17-2024 Office outpatient visit 25 minutes Renny Hansen MD Work Phone: [facility] Comment on above: 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 Sakina Cardenas DO Work Phone: [facility] Comment on above: OP Note Start: 11-07-2024 End: 11-07-2024 Bamboo flowsdemond Cardenas DO Work Phone: [facility] Start: 11-07-2024 End: 11-07-2024 Bamboo flowsdemond Ovalle Stepanic DO Work Phone: [facility] Start: 11-07-2024 End: 11-07-2024 Office outpatient visit 15 minutes Jr. Sakina Cardenas DO Work Phone: [facility] Comment on above: Infection or inflamm atory reaction due to internal joint prosthesis, initial encounter (CMS/HCC); History of reverse total replacement of left shoulder joint Start: 11-07-2024 End: 11-07-2024 ambulatory SAKINA MARIO Not Available Start: 10-29-2024 Registered Recurring Renny batista II [facility] Phone: [facility] Work Phone: Start: 10-29-2024 End: 10-29-2024 ambulatory Renny Hansen II Work Phone: [facility] Work Phone: Start: 10-29-2024 End: 10-29-2024 Patient encounter procedure Renny Hansen II Work Phone: [facility] Work Phone: Start: 10-29-2024 End: 10-29-2024 ambulatory Miguel Murphy MD Facility:[facility] Start: 10-24-2024 End: 10-24-2024 Patient encounter procedure Renny Hansen II Work Phone: [facility] Work Phone: Start: 10-24-2024 End: 10-24-2024 ambulatory eRnny Hansen II Work Phone: [facility] Work Phone: Start: 10-24-2024 End: 10-24-2024 Office outpatient visit 15 minutes Jr. Sakina Cardenas DO Work Phone: [facility] Comment on above: Injury of left shoul kathie and upper arm, sequela; Left shoulder pain, unspecified chronicity; 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, initial encounter ([facility]) Start: 10-24-2024 End: 10-24-2024 ambulatory SAKINA MARIO Not Available Start: 10-24-2024 End: 10-24-2024 Bambocompa Cardenas DO Work Phone: [facility] Start: 10-24-2024 End: 10-24-2024 Bamboo elaine Cardenas DO Work Phone: [facility] Start: 10-24-2024 End: 10-24-2024 External Result Encounter Jr. Sakina Stantonanic DO Work Phone: [facility] External Department Unsolicited [...] Renny Hansen II Work Phone: [facility] Start: 10-16-2024 End: 10-16-2024 ambulatory Rneny Hansen II Work Phone: [facility] Work Phone: Start: 10-09-2024 End: [...] End: 10-02-2024 External Result Encounter Katharina Toledo DIGITAL ACCOUNT COORDINATOR Work Phone: [facility] External Department Unsolicited Start: 10-02-2024 End: 10-02-2024 External Result Encounter Katharina Toledo DIGITAL ACCOUNT COORDINATOR Work Phone: [facility] External Department Unsolicited Start: 10-02-2024 Registered Recurring Renny batista II [facility]: [facility] Work Phone: Start: 09-25-2024 End: 09-25-2024 ambulatory Renny Hansen II Work Phone: [facility] Work Phone: Start: 09-25-2024 End: 09-25-2024 Patient encounter procedure Renny Hansen II Work [facility] Work Phone: Start: 09-24-2024 End: 09-24-2024 ambulatory [facility] Start: 09-19-2024 End: 09-19-2024 ambulatory LUISANA LEAL Not Available Start: 09-19-2024 End: 09-19-2024 Office outpatient visit 25 minutes Luisana Leal DIGITAL ACCOUNT COORDINATOR Work Phone: [facility] Comment on above: Acute cystitis with hematuria (Primary Dx); Burning with urination; Centrilobular emphysema (CMS/HCC); Morbid (severe) obesity due to excess calories (CMS/HCC); Body mass index (BMI) 40.0-44.9, adult (CMS/HCC); Chronic obstructive pulmonary disease, unspecified (CMS/HCC); Pulmonary hypertension, unspecified (CMS/HCC); Need for vaccination Start: 09-18-2024 End: 09-18-2024 Bamboo flowsheet Tonichuck Jose Roberto DO Work Phone: [facility] Start: 09-18-2024 End: 09-18-2024 Bamboo flowsheet Tonichuck Brightett DO Work Phone: [facility] [...] 09-10-2024 End: 09-10-2024 ambulatory Miguel Murphy MD Facility:[facility] Start: 08-24-2024 End: 08-24-2024 Patient encounter procedure Renny Hansen II Work Phone: [facility] Work Phone: Start: 08-24-2024 End: 08-24-2024 ambulatory Renny Hansen Facility:[facility] Start: 08-24-2024 End: 08-24-2024 External Result Encounter Katharina Toledo DIGITAL ACCOUNT COORDINATOR Work Phone: [facility] External Department Unsolicited Start: 08-24-2024 End: 08-24-2024 External Result Encounter Katharina Toledo NP Work Phone: [facility] External Department Unsolicited Start: 08-24-2024 End: 08-24-2024 Patient encounter procedure Renny Tyrone II Work Phone: [facility] Work Phone: Start: 08-20-2024 End: 08-20-2024 ambulatory Miguel Murphy MD Facility:[facility] Start: 08-16-2024 End: 08-16-2024 Bamboo flowsheet Renny [...] Start: 07-24-2024 End: 07-24-2024 Bamboo flowsheet Eleanor Dumont PA Work Phone: [facility] Start: 07-24-2024 End: 07-24-2024 Bamboo flowsheet Eleanor Dumont PA Work Phone: [facility] Start: [...] (CMS/HCC) Start: 07-24-2024 End: 07-24-2024 ambulatory ELEANOR Nathan TOSIN Not Available Start: 07-19-2024 End: 07-19-2024 ambulatory SAHU CIRA Not Available Start: 07-18-2024 End: 07-18-2024 ambulatory [facility] Start: 07-16-2024 End: 07-16-2024 Refill Monster Calvillo [...] Not Available Start: 06-19-2024 End: 06-19-2024 ambulatory [facility] Start: 06-18-2024 End: 06-18-2024 Refill Monster Calvillo DIGITAL ACCOUNT COORDINATOR Work Phone: [facility] Comment on above: Acute on chronic nisa stolic (congestive) heart failure (CMS/HCC) Start: 05-31-2024 End: 05-31-2024 Bamboo flowsheet Monster Calvillo DIGITAL ACCOUNT COORDINATOR Work Phone: [facility] Start: 05-31-2024 End: 05-31-2024 Bamboo flowsheet Monster Calvillo DIGITAL ACCOUNT COORDINATOR Work Phone: [facility] Start: 05-31-2024 End: 05-31-2024 Office outpatient visit 15 minutes Monster Calvillo DIGITAL ACCOUNT COORDINATOR Work Phone: [facility] Comment on [...] Shaikh Denis Work Phone: [facility] Work Phone: Start: 05-02-2024 End: 05-02-2024 ambulatory MD Shaikh Denis Work Phone: [facility] Work Phone: Start: 04-16-2024 End: 04-16-2024 ambulatory PEDRO PABLO CRUZ Not Available Start: 04-16-2024 End: 04-16-2024 ambulatory Miguel Murphy MD Facility:[facility] Start: 04-11-2024 End: 04-11-2024 ambulatory SHAIKH CIRA Not Available Start: 04-10-2024 End: 04-10-2024 Patient encounter procedure MD Shaikh Denis Work Phone: [facility] Work Phone: Start: 04-10-2024 End: 04-10-2024 ambulatory MD Shaikh Denis Work Phone: [facility] Work Phone: Start: 04-02-2024 End: 04-02-2024 ambulatory Miguel Murphy MD Facility:[facility] Start: 03-29-2024 End: 03-29-2024 Patient encounter procedure MD Shaikh Denis Work Phone: [facility]Pac[facility] Check Start: 03-29-2024 End: 03-29-2024 ambulatory MD Shaikh Denis Work Phone: [facility] Work Phone: Start: 03-12-2024 End: 03-12-2024 ambulatory SHAIKH CIRA Not Available Start: 03-07-2024 End: 03-07-2024 ambulatory Jair ALEXANDER Facility:CD:[id number] Start: 03-02-2024 End: 03-02-2024 ambulatory Jair ALEXANDER Facility:[facility] Start: 03-02-2024 End: 03-02-2024 Patient encounter procedure Jair ALEXANDER [facility] [place] Start: 03-01-2024 ambulatory Jair ALEXANDER Facility:[facility] Start: 02-27-2024 End: 02-27-2024 ambulatory SHAIKH CIRA Not Available Start: 12-29-2023 End: 12-29-2023 ambulatory SHAIKH CAMILOWWAD Not Available Start: 12-26-2023 End: 12-26-2023 ambulatory Miguel Murphy MD Facility:[facility] Start: 10-17-2023 Cristobal flowsheet Shaikh Cira CUBA Work Phone: [facility] Start: 10-17-2023 Cristobal Denis MD Work Phone: [facility] Start: 10-11-2023 End: 10-11-2023 ambulatory MD Shaikh Denis Work Phone: [facility] Work Phone: Start: 10-11-2023 End: 10-11-2023 Patient encounter procedure MD Shaikh Denis Work Phone: [facility] Work Phone: Start: 09-08-2023 End: 09-08-2023 ambulatory MD Shaikh Denis Work Phone: [facility] Work Phone: Start: 09-08-2023 End: 09-08-2023 Patient encounter procedure MD Shaikh Denis Work Phone: [facility] Start: 09-06-2023 Patient encounter [...] 10-07-2021 End: 10-07-2021 ambulatory Hong Nevarez Other [email or web address] Other Start: 10-07-2021 Office outpatient vi sit 15 minutes Hong Nevarez [facility] Start: 08-26-2021 End: 08-26-2021 ambulatory Hong Nevarez Other [email or web address] Other Start: 08-26-2021 Office outpatient ne w 45 minutes Hong Nevarez [facility] Start: 10-11-2020 End: 10-13-2020 Evaluation and management of inpatient [facility] Facility:[facility] Procedures Date Procedure Procedure Detail Performing Clinician Start: 12-21-2024 ALL BASIC METABOLIC PANEL Generic External Data Provider Start: 10-24-2024 C-reactive protein Jr. Sakina Ovalle [...] Start: 10-02-2024 ISTAT XRAY CRE Katharina herrera DIGITAL ACCOUNT COORDINATOR Work Phone: Start: 10-02-2024 CT of left shoulder with contrast Renny Hansen II Work Phone: Start: 09-19-2024 Urnls dip stick/tabl et rgnt non-auto w/o micrscp Luisana Leal DIGITAL ACCOUNT COORDINATOR Work Phone: Start: 08-24-2024 Complete blood count with white cell differential, automated Katharina Toledo DIGITAL ACCOUNT COORDINATOR Work Phone: Start: 07-24-2024 ALL CBC WITH AUTO DIFF Eleanor Evans Tosin PA Work Phone: Start: 07-24-2024 [employer] Filippo alyse Nathan Tosin PA Work Phone: Start: 07-24-2024 Transferrin [Mass/vo lume] in Serum or Plasma Eleanor Evans Tosin PA Work Phone: Start: 05-22-2024 Radex shoulder [...] 09-20-2021 Cardiac pacemaker, d evice (physical object) Jair CATHERINE Comment on above: Dr. Martinez Start: 10-13-2020 INSERT PACE. DUAL CH AM IN CHEST SUBCU/FASCIA, OPEN DMITRIY HENNESSY Start: 10-13-2020 INSERTION OF PACEMAK ER LEAD INTO R VENTRICLE, PERC APPROACH DMITRIY HENNESSY Start: 10-13-2020 INSERTION OF PACEMAK ER LEAD INTO RIGHT ATRIUM, PERC APPROACH DMITRIY HENNESSY Start: 09-12-2017 Linda eid MD Work Phone: Start: 09-12-2003 History of right tot al knee replacement Jair PARKMariah Start: 09-12-2001 History of left tota l knee replacement Jair [employer] Appendectomy Jair ALEXANDER Arthroscopy of knee Jair [employer] Comment on above: 06/2012 Arthroscopy of shoulder Brice ALEXANDER Comment on above: left shoulder tear r epaired 08/25 Cardiac catheter (ph ysical object) Jair [employer] Comment on above: 12/21/ mild CAD Colonoscopy Jair [employer] Comment on above: 2012 repeat 10 years Ligation of fallopian tube M armando [employer] Repair of musculoten dinous cuff of shoulder Jair Medigram Comment on above: right Total abdominal hyst erectomy with bilateral salpingo-oophorectomy Jair PARKEchoing Green Plan of Treatment Date Care Activity Detail Author Start: 09-12-2027 Screening for malign ant neoplasm of colon [facility] Start: 10-17-2025 Medicare Annual Well ness (AWV) Medicare Annual Wellness (AWV) [facility] Start: 02-18-2025 End: 02-18-2025 Patient encounter procedure 02/18/2025 11:30 AM EDT Office Visit [facility] [address] [facility] [address] [place] [phone] Renny Hansen MD [address] [facility] [address] [place] [address] [facility] Start: 01-14-2025 End: 12-15-2025 DBT Breast - left diagnostic Left diagnostic mammogram with tomosynthesis Imaging Routine Abnormal mammogram Expected: 01/14/2025, Expires: 12/15/2025 [facility] Work Phone: Comment on above: Expected: 01/14/2025 , Expires: 12/15/2025 Start: 12-17-2024 End: 12-17-2024 Patient encounter procedure [facility] Comment on above: Abnormal mammogram; Enlarged lymph nodes in armpit Start: 11-07-2024 End: 11-07-2024 Patient encounter procedure [facility] Comment on above: Arrived Start: 11-05-2024 End: 11-05-2024 Patient encounter procedure [facility] Start: 10-30-2024 End: 10-30-2024 Patient encounter procedure 10/30/2024 2:15 PM EST [facility] [address] [place] [phone] Dmitriy Duque, DO [address] [place] [address] [facility] Start: 10-24-2024 End: 10-24-2024 Patient encounter procedure 10/24/2024 2:15 PM EST Office Visit [facility] [address] [place] [address] Jr. Sakina Cardenas, DO [address] [facility] [address] [place] [address] Injury of left shoulder and upper arm, sequela; Left shoulder pain, unspecified chronicity [facility] Comment on above: Injury of left shoul kathie and upper arm, sequela; Left shoulder pain, unspecified chronicity Start: 10-17-2024 End: 10-17-2024 Patient encounter procedure [facility] Comment on above: Arrived Start: 10-04-2024 End: 10-04-2024 Patient encounter procedure 10/04/2024 3:45 PM EST Consult [facility] [address] [place] [phone] Dmitriy Duque, DO [address] [place] [address] [facility] Start: 09-25-2024 Patient referral [facility] Work Phone: Start: 09-19-2024 End: 09-19-2024 Patient encounter procedure 09/19/2024 3:00 PM EST Office Visit [facility] [address] [place] [address] Luisana Leal NP [address] [place] [address] [facility] Start: 09-19-2024 End: 09-19-2025 URINARY TRACT INFECTION (HTRX) URINARY TRACT INFECTION (HTRX) Lab Routine Burning with urination Expected: 09/19/2024 (Approximate), Expires: 09/19/2025 [facility] Work Phone: Comment on above: Expected: 09/19/2024 (Approximate), Expires: 09/19/2025 Start: 09-18-2024 End: 09-18-2024 Patient encounter procedure 09/18/2024 10:15 AM EST Office Visit [facility] [address] [place] [phone] Salome Cid, [address] [place] [address] Neck pain on left side [facility] Comment on above: Neck pain on left si de Start: 09-14-2024 End: 09-14-2024 Patient encounter procedure 09/14/2024 10:00 AM EST Office Visit [facility] [address] [facility] [address] [place] [address] Renny Hansen MD [address] [place] [address] [facility] Start: 09-10-2024 [facility] Start: 09-10-2024 [facility] Start: 09-06-2024 Medicare Annual Well ness (AWV) Medicare Annual Wellness (AWV) [facility] Start: 09-03-2024 [facility] Start: 08-31-2024 [facility] Start: 08-31-2024 [facility] Start: 08-23-2024 End: 08-23-2024 Patient encounter procedure 08/23/2024 11:45 AM EST Office Visit [facility] [address] [place] [address] Renny Hansen MD [address] [place] [address] [facility] Start: 08-16-2024 End: 08-16-2024 Patient encounter procedure 08/16/2024 10:30 AM EST Office Visit [facility] [address] [place] [address] Renny Hansen MD [address] [place] [address] [facility] Start: 08-02-2024 End: 08-02-2025 RF Upper gastrointestinal tract and Small bowel Single view W contrast PO FL upper GI double contrast w KUB Imaging Routine Nausea Expected: 08/02/2024, Expires: 08/02/2025 [facility] Work Phone: Comment on above: Expected: 08/02/2024 , Expires: 08/02/2025 Start: 08-02-2024 End: 08-02-2024 Patient encounter procedure [facility] Comment on above: Arrived Start: 07-24-2024 [...] blood loss Expected: 07/24/2024 (Approximate), Expires: 07/24/2025 [facility] Comment on above: Expected: 07/24/2024 (Approximate), Expires: 07/24/2025 Start: 07-19-2024 End: 07-19-2024 Patient encounter procedure 07/19/2024 12:00 PM EST Procedure Visit [facility] [address] [place] [phone] [facility] Start: 07-05-2024 End: 07-05-2025 EMG AND NERVE CONDUCTION STUDY EMG AND NERVE CONDUCTION STUDY Neurology Routine Neck pain on left side Radicular pain in left arm Expected: 07/05/2024 (Approximate), Expires: 07/05/2025 [facility] Comment on above: Expected: 07/05/2024 (Approximate), Expires: 07/05/2025 Start: 07-05-2024 End: 09-04-2025 MG Breast - bilateral Screening Bilateral screening mammogram Imaging Routine Breast screening Expected: 07/05/2024 (Approximate), Expires: 09/04/2025 [facility] Work Phone: Comment on above: Expected: 07/05/2024 (Approximate), Expires: 09/04/2025 Start: 07-05-2024 End: 07-05-2024 Patient encounter procedure [facility] Comment on above: Arrived Start: 05-31-2024 End: 05-31-2024 Patient encounter procedure 05/31/2024 1:30 PM EDT Office Visit [facility] [address] [place] [address] Monster Calvillo, ELBERT [address] [address] Arrived [facility] Comment on above: Arrived Start: 05-22-2024 End: 08-21-2024 C reactive protein [Mass/volume] in Serum or Plasma C-REACTIVE PROTEIN Lab Routine 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 Comment on above: Expected: 05/22/2024 , Expires: 08/21/2024 Start: 05-22-2024 End: 05-22-2024 Patient encounter procedure 05/22/2024 2:00 PM EDT Office Visit [facility] [address] [place] [phone] Monster Calvillo NP [address] [place] [address] [facility] Start: 05-13-2024 Covid-19 Vaccine ( season) Covid-19 Vaccine ( season) [facility] Start: 05-13-2024 Influenza vaccination Influenza Vacc ine (#1) [facility] Start: 05-09-2024 End: 05-09-2024 Patient encounter procedure 05/09/2024 10:00 AM EDT Office Visit [facility] [address] [place] [address] Jr. Sakina Cardenas, [address] [place] [address] [facility] Start: 11-07-2023 End: 11-07-2023 Patient encounter procedure 11/07/2023 2:30 PM EST Office Visit [facility] [address] [place] [phone] Shaikh Denis MD [address] [place] [address] [facility] Start: 10-17-2023 End: 10-17-2023 Patient encounter procedure 10/17/2023 10:15 AM EST Office Visit [facility] [address] [place] [id number] Shaikh Denis MD [address] [place] [id number] Arrived [facility] Comment on above: Arrived Start: 09-12-2023 Advance Directive Discussion Advance Directive Discussion [facility] Start: 11-30-2012 Screening for osteoporosis Bone Dens ity Screening [facility] Start: 11-30-1997 Shingrix Vaccine (1 of 2) Reyes grix Vaccine (1 of 2) [facility] Start: 11-30-1992 Diabetes Screening Diabetes Screenin g [facility] Start: 11-30-1966 Urine microalbumin profile DTa P,Tdap,Td Vaccine (1 - Tdap) [facility] Start: 11-30-1965 Anxiety Screening Anxiety Screening [facility] Start: 11-30-1965 Depression Screening Depression Scre ening [facility] Start: 11-30-1965 Hepatitis C screening Hepatitis C Sc deirdre [facility] Start: 1945 Screening for malign ant neoplasm of colon [facility] CBC W Auto Different ial panel - Blood CBC auto differential Lab Routine 10/02/2024 11:54 AM EST [facility] Work Phone: CBC W Auto Different ial panel - Blood [facility] Work Phone: Comment on above: Ordered: 10/24/2024 Comprehensive metabo lic 1999 panel - Serum or Plasma [facility] Comprehensive metabo lic 2000 panel - Serum or Plasma [facility] CT Shoulder - left W contrast IV [facility] End: 06-21-2025 CT Shoulder - left WO contrast CT SHOULDER WO IVCON LEFT Radiology Routine 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 Immunizations Immunization Date Immunization Notes Care Provider [facility] 09-19-2024 Influenza, High-dose Seasonal, Quadrivalent, Preservative Free Luisana Leal DIGITAL ACCOUNT COORDINATOR Work Phone: [facility] 08-25-2023 influenza virus vacc ine, unspecified formulation Jair ALEXANDER [facility] [place] 08-25-2023 Influenza, Seasonal, Quadrivalent, Adjuvanted Shaikh Cira CUBA Work Phone: [facility] 08-25-2023 RSV, recombinant, protein subunit RSVpreF, adjuvant reconstitu, 120mcg/0.5mL, PF (Arexvy) Shaikh Cira CUBA Work Phone: [facility] 07-08-2022 influenza virus vacc ine, unspecified formulation Jair ALEXANDER [facility] 07-08-2022 Influenza, Seasonal, Quadrivalent, Adjuvanted Shaikh Cira CUBA Work Phone: [facility] 08-20-2021 influenza virus vacc ine, unspecified formulation Jair ALEXANDER [facility] 08-20-2021 Influenza, Seasonal, Quadrivalent, Adjuvanted Shaikh Cira CUBA Work Phone: [facility] 08-20-2021 pneumococcal polysaccharide vaccine, 23 valent Jair NILL [facility] 11-18-2020 SARS-CoV-2 (COVID-19 ) mRNA-1273 vaccine Jair NILL [facility] 10-20-2020 SARS-CoV-2 (COVID-19 ) mRNA-1273 vaccine Jair NILL [facility] 08-04-2020 influenza virus vacc ine, unspecified formulation Jair NILL [facility] 08-04-2020 Influenza, Seasonal, Quadrivalent, Adjuvanted Shaikh Cira CUBA Work Phone: [facility] 08-04-2020 pneumococcal conjuga te vaccine, 13 valent Jair NILL [facility] 08-06-2019 influenza virus vacc ine, unspecified formulation Jair NILL [facility] 08-06-2019 influenza, high dose seasonal, preservative-free Shaikh Cira CUBA Work Phone: [facility] 07-05-2017 influenza virus vacc ine, unspecified formulation Jair NILL [facility] 07-05-2017 pneumococcal conjuga te vaccine, 13 valent Jair NILL [facility] 07-05-2017 Seasonal trivalent influenza vaccine, adjuvanted, preservative free Shaikh Cira CUBA Work Phone: [facility] 06-29-2016 influenza virus vacc ine, unspecified formulation Jair PARKL [facility] 06-29-2016 Seasonal trivalent influenza vaccine, adjuvanted, preservative free Shaikh Cira CUBA Work Phone: [facility] 06-25-2015 influenza virus vacc ine, unspecified formulation Jair ALEXANDER [facility] 06-25-2015 influenza, injectabl e, quadrivalent, contains preservative Shaikh Cira CUBA Work Phone: [facility] 06-12-2015 influenza virus vacc ine, unspecified formulation Jair ALEXANDER [facility] 06-12-2015 seasonal influenza, intradermal, preservative free Shaikh Cira CUBA Work Phone: [facility] 07-12-2014 influenza virus vacc ine, unspecified formulation Jair ALEXANDER [facility] 07-12-2014 influenza, injectabl e, quadrivalent, contains preservative Shaikh Cira CUBA Work Phone: [facility] 08-07-2013 influenza virus vacc ine, unspecified formulation Jair ALEXANDER [facility] 08-07-2013 influenza, seasonal, injectable Shaikh Cira CUBA Work Phone: [facility] Payers Date Payer Category Payer Medicare (Managed Care) [employer]IC[employer] [id number] 2024 Unknown [id number] 2024 Unknown 2024 Self-pay [id number] 2023 Medicaid AETNA MEDICARE A DVANTAGE [id number] 2023 Private Health Insurance [facility] [place] 2] [id number] 2023 Private Health Insurance 2023 Managed Care HMO (unspecified) [employer]ET[employer] AETNA [id number] 2023-Present [address] [place] [address] HMO [id number] 2007 Medicare [id number] 1959 Medicare [id number] 1959 Private Health Insurance [facility] [id number] 1947 Unknown [id number] 2.16.840.1.150977.3.579.2. 647 1947 Unknown [id number] 2.16.840.1.391172.3.579.2. 593 1947 Unknown [id number] 2.16.840.1.028863.3.579.2. 593 1947 Unknown [id number] 2.16.840.1.595306.3.579.2. 593 1947 Unknown [id number] 2.16.840.1.541985.3.579.2. 593 1947 Unknown [id number] 2.16.840.1.099503.3.579.2. 593 1947 Unknown [id number] 2.16.840.1.207962.3.579.2. 593 1947 Unknown [id number] 2.16.840.1.065229.3.579.2. 593 1947 Unknown [id number] 2.16.840.1.425855.3.579.2. 593 1947 Unknown [id number] 2.16.840.1.075335.3.579.2. 593 1947 Unknown [id number] 2.16.840.1.438522.3.579.2. 593 1947 Unknown [id number] 2.840.1.883400.3.579.2. 593 1947 Unknown [id number] 2.16840.1.321845.3.579.2. 593 1947 Unknown [id number] 2.840.1.148343.3.579.2. 593 1947 Unknown [id number] 2.16840.1.794553.3.579.2. 593 1947 Unknown [id number] 2.16840.1.753851.3.579.2. 593 1947 Unknown [id number] 2.16.840.1.171117.3.579.2. 593 1947 Unknown [id number] 2.16.840.1.001764.3.579.2. 593 1947 Unknown [id number] 2.16.840.1.445509.3.579.2. 593 1947 Unknown [id number] 2.16.840.1.230530.3.579.2. 593 1947 Unknown [id number] 2.16.840.1.079411.3.579.2. 593 1947 Unknown [id number] 2.16.840.1.585824.3.579.2. 593 1947 Unknown [id number] 2.16.840.1.454965.3.579.2. 593 1947 Unknown [id number] 2.16.840.1.820959.3.579.2. 593 1947 Unknown [id number] 2.16.840.1.424041.3.579.2. 593 1947 Unknown [id number] 2.840.1.753524.3.579.2. 593 1947 Unknown [id number] 2.840.1.608736.3.579.2. 593 1947 Unknown [id number] 2.840.1.471951.3.579.2. 727 1947 Unknown [id number] 2.840.1.887234.3.579.2. 727 1947 Unknown [id number] .840.1.452012.3.579.2. 1259 1947 Unknown [id number] .840.1.939982.3.579.2. 1259 1947 Unknown [id number] .840.1.964808.3.579.2. 1259 1947 Unknown [id number] .840.1.382966.3.579.2. 1259 1947 Unknown [id number] 2.840.1.082361.3.579.2. 1259 1947 Unknown [id number] 2.840.1.793349.3.579.2. 1259 1947 Unknown [id number] 2.16.840.1.683783.3.579.2. 125 1947 Unknown [id number] 2.16.840.1.689748.3.579.2. 1258 1947 Unknown [id number] 2.16.840.1.415202.3.579.2. 1258 1947 Unknown [id number] 2.16.840.1.795501.3.579.2. 1258 1947 Unknown [id number] 2.16.840.1.172500.3.579.2. 1258 1947 Unknown [id number] 2.16840.1.718418.3.579.2. 1258 1947 Unknown [id number] 2.16840.1.076834.3.579.2. 1258 1947 Unknown [id number] 2.840.1.345727.3.579.2. 1258 1947 Unknown [id number] 2.16.840.1.597769.3.579.2. 1258 1947 Unknown [id number] 2.16.840.1.786255.3.579.2. 1258 1947 Unknown [id number] 2.16.840.1.911445.3.579.2. 1258 1947 Unknown [id number] 2.16.840.1.519281.3.579.2. 1258 1947 Unknown [id number] 2.16.840.1.063092.3.579.2. 1258 1947 Unknown [id number] 2.16.840.1.695619.3.579.2. 1258 1947 Unknown [id number] 2.16.840.1.440118.3.579.2. 125 1947 Unknown [id number] 2.16.840.1.469831.3.579.2. 196 1947 Unknown [id number] 2.16840.1.586814.3.579.2. 196 1947 Unknown [id number] 2.16.840.1.929818.3.579.2. 196 1947 Unknown [id number] 2.16840.1.871937.3.579.2. 196 1947 Unknown [id number] 2.16840.1.392193.3.579.2. 196 1947 Unknown [id number] 2.16840.1.983214.3.579.2. 196 1947 Unknown [id number] 2.840.1.639333.3.579.2. 196 Medicare Medicare Outpatient [id number] [id number] Unknown [facility] [id number] Unknown [id number] 2.16840.1.519393.3.579.2. 531 Unknown [id number] 2.16840.1.198799.3.579.2. 531 Unknown [id number] 2.840.1.799960.3.579.2. 531 Unknown [id number] 2.840.1.770826.3.579.2. 531 Unknown [id number] 2.840.1.918784.3.579.2. 531 Unknown [id number] 2.840.1.080832.3.579.2. 531 Unknown [id number] 2.840.1.381610.3.579.2. 531 Social History Date Type Detail Facility Start: 08-30-2023 End: 11-12-2024 Sex Assigned At [facility] Start: 1945 Sex Assigned At Female [facility] Start: 08-18-2023 End: 10-17-2024 Tobacco smoking status VTIS Ex-smoker [facility] Start: 09-12-1967 History of tobacco use Current smoker [facility] Start: 09-12-1967 History of tobacco use Cigarette Smoker [facility] Start: 09-02-2023 Alcohol intake Not Asked [facility] Start: 08-30-2023 End: 11-12-2024 History of Social function [facility] Within the last year , have you been afraid of your partner or ex-partner? No [facility] How often do you att end shinto or muslim services? Patient refused [facility] Do you belong to any clubs or organizations such as shinto groups, unions, fraternal or athletic groups, or school groups? Yes [facility] Are you now , , , , never or living with a partner? [facility] Do you feel stress - tense, restless, nervous, or anxious, or unable to sleep at night because your mind is troubled all the time - these days [OSQ] Not at all [facility] (I/We) worried wherizwan er (my/our) food would run out before (I/we) got money to buy more. DK or Refused [facility] Start: 08-18-2023 Alcohol Comment (Audit-C) : Negative [facility] Start: 1945 Sex Assigned At Not on file [facility] Start: 04-27-2013 End: 05-22-2024 Tobacco smoking status [facility] Never smoked tobacco (finding) [facility] Start: 05-22-2024 Tobacco use and exposure Smokeless tobacco non-user [facility] Start: 05-22-2024 End: 12-17-2024 Alcoholic beverage intake Current drinker of alcohol (finding) [facility] History of tobacco use Passive smoker [facility] Start: 11-07-2023 Alcohol Comment OCCASSIONAL [facility] Start: 09-25-2024 End: 10-29-2024 Sex Female (finding) [facility] Are you now , , , , never or living with a partner? Living with partner [facility] Do you feel stress - tense, restless, nervous, or anxious, or unable to sleep at night because your mind is troubled all the time - these days [OSQ] To some extent [facility] (I/We) worried wheth er (my/our) food would run out before (I/we) got money to buy more. Never true [facility] Goals Date Patient Goal Desired Activity /State Functional Status Date Assessment Result Facility 03-02-2024 Functional Status N/A [facility] [place] Clinical Notes 08-26-2021 to 01-17-2025 Renny Hansen MD - 12/17/2024 11:00 AM EDTTelephone Encounter - DANIELLE [place] - 11/10/2024 9:39 AM ESTTelephone Encounter - DANIELLE [place] - 11/10/2024 9:39 AM ESTPatient Instructions Note Date & Type Note Facility 01-17-2025 Note Subjective Patient ID: Breann Starks is a 79 y.o. female. PLAN: a Mrs. 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 She is currently taking penicillin 500 mg 4 times daily. She has a past medical history significant for sick sinus syndrome with pacemaker in place. Briefly, she underwent reverse left shoulder replacement in 2021. She says that the postoperative course was uneventful until approximately February 2024 when she developed increasing left shoulder pain and decreased range of movement. Of note she says that her anterior arm near her shoulder replacement has always had some erythema. In November 2023 she underwent left shoulder joint aspiration which yielded Streptococcus sanguinous. She was started on oral penicillin 500 mg 4 times daily. Since that time, she says that her left shoulder pain has diminished and her range of movement is slowly improving. She denies fever, chills, night sweats, chest pain, shortness of breath, drainage from the joint, or rash. Most importantly, she says that her shoulder is feeling improved and that her quality of life has improved. Review of Systems Constitutional: Negative for chills, fatigue and fever. Respiratory: Negative for cough and shortness of breath. Cardiovascular: Negative for chest pain. Gastrointestinal: Negative for abdominal pain, diarrhea, nausea and vomiting. Skin: Negative for rash. Objective Physical Exam Vitals reviewed. Constitutional: Appearance: Normal appearance. HENT: Head: Normocephalic. Mouth/Throat: Mouth: Mucous membranes are moist. Pharynx: No oropharyngeal exudate or posterior oropharyngeal erythema. Eyes: General: No scleral icterus. Cardiovascular: Rate and Rhythm: Normal rate and regular rhythm. Heart sounds: No murmur heard. Comments: Pacemaker: no rubor, no calor, no dolor, no tumor, no drainage. Pulmonary: Effort: Pulmonary effort is normal. Breath sounds: Normal breath sounds. Abdominal: General: Abdomen is flat. Bowel sounds are normal. Palpations: Abdomen is soft. Tenderness: There is no right CVA tenderness or left CVA tenderness. Musculoskeletal: Arms: Right lower leg: Edema present. Left lower leg: Edema present. Comments: Left shoulder: decreased ROM; slight rubor, no calor, no dolor, no tumor, no drainage. Lymphadenopathy: Cervical: No cervical adenopathy. Skin: Capillary Refill: Capillary refill takes less than 2 seconds. Coloration: Skin is not jaundiced. Findings: No rash. Neurological: General: No focal deficit present. Mental Status: She is alert and oriented to person, place, and time. Psychiatric: Mood and Affect: Mood normal. Laboratory: No results found for: AST , ALT , ALBUMIN , PROT Lab Results Component Value Date CRP 9.6 (H) 11/27/2024 Lab Results Component Value Date HGB 11.9 (L) 11/27/2024 HCT 38.6 11/27/2024 WBC 10.70 (H) 11/27/2024 PLT 411 (H) 11/27/2024 Lab Results Component Value Date BUN 19 10/13/2020 Lab Results Component Value Date SEDRATE 96 (H) 11/27/2024 1. Pain in joint of left shoulder - Basic metabolic panel; Future - CBC and differential; Future - C-reactive protein; Future - External Sedimentation rate; Future - penicillin v potassium (Veetid) 500 mg tablet; Take 1 tablet (500 mg) by mouth four times daily. Dispense: 240 tablet; Refill: 1 - penicillin v potassium (Veetid) 500 mg tablet; Take 1 tablet (500 mg) by mouth four times daily. Dispense: 40 tablet; Refill: 4 Assessment/Plan 79 y.o. female Left shouldder PJI with Strep sanguis Perfect is the enemy of good dodie 1. Pain in joint of left shoulder - Basic metabolic panel; Future - CBC and differential; Future - C-reactive protein; Future - External Sedimentation rate; Future - penicillin v potassium (Veetid) 500 mg tablet; Take 1 tablet (500 mg) by mouth four times daily. Dispense: 240 tablet; Refill: 1 - penicillin v potassium (Veetid) 500 mg tablet; Take 1 tablet (500 mg) by mouth four times daily. Dispense: 40 tablet; Refill: 4 2. 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 She has no signs or symptoms of systemic infection and while she has been on oral penicillin for approximately 6 weeks, she has said that her shoulder pain has diminished in her range of motion has improved. She has a past medical history significant of her pacemaker and she has no signs or symptoms of endocarditis or endovascular infection. She does not want to have any surgery if she does not need it. Overall, she has improved on the current regimen. Because she is content with the progress, I we will continue her current regimen and monitor. - Basic metabolic panel; Future - CBC and differential; Future - C-reactive protein; (more content not included)... [facility] 01-01-2025 Note Orthopaedic Surgery Subjective Follow-up and Pain of the Left Shoulder 01/01/25 rBeann Starks is a 79 y.o. female presenting for follow-up of her left shoulder. have been treating for a likely prosthetic joint infection of the left shoulder, last seen a month ago and placed on penicillin V, Previous blind aspiration grew staph sanguinous. today she states that her shoulder is doing much better, having minimal pain and has much improved motion. Has been taking the antibiotic as prescribed, has about 2 weeks left. Not been having any new issues. 11/27/24 Breann Starks is a 78 y.o. year [...] and comes in today for a follow-up. 11/13/24 Breann Starks is a 78 y.o. [...] History Past Surgical History: Procedure Laterality Date CARDIAC CATHETERIZATION FOOT SURGERY X2 HAND SURGERY HYSTERECTOMY INSERT / REPLACE / REMOVE PACEMAKER 10/13/2020 SHOULDER SURGERY X4 TOTAL KNEE ARTHROPLASTY Bilateral TRIGGER FINGER RELEASE 08/12/2015 TUBAL LIGATION Past Medical History: Diagnosis Date Abnormal ECG Arrhythmia Atrial fibrillation (CMS/HCC) Coronary artery disease Hypertension Objective General: Body mass index is 43.42 kg/m???. No acute distress, comfortable Inspection Left Left shoulder inspection is normal. Range of Motion Left Active forward elevation: 90. Shoulder active abduction: 80. Range of motion additional comments: left shoulder extension 45 degrees Neurovascular Left Left shoulder nerve sensation is normal. Imaging: none today Assessment/Plan Breann Starks is a 79 y.o. female with Pain in joint of left shoulder, likely prosthetic joint infection with history of rTSA, has improved significantly on Penicillin V. Her improvement on antibiotics this further suspicion of PJI, we will have her complete her course of penicillin will also give her referral to infectious disease. She again reiterates that she does not desire any surgery on the shoulder and antibiotic suppression is a reasonable option. After she is off antibiotics for a while can consider a fluoroscopic guided aspiration of the joint. She understands and is agreeable to this plan. -Infectious disease referral to discuss lifelong antibiotic suppression -Return to clinic as needed or for any worsening symptoms David Cunha MD Orthopaedic Surgery 01/01/25 2:13 PM By using the attestations below, the [...] be an additional personal documentation from me. [facility] 12-24-2024 Note [place] [facility] Subjective Breann Starks is a 79 y.o. year old female patient being seen for Coronary Artery Disease, Hypertension, Congestive Heart Failure, Hyperlipidemia, and 3 month follow up Patient Active Problem List Diagnosis Disorder of bursae of shoulder region Chronic obstructive lung disease (CMS/HCC) Atherosclerosis of grayling coronary artery of grayling heart without angina pectoris Diaphragmatic hernia Edema Essential hypertension Malaise and fatigue Obesity Paroxysmal supraventricular tachycardia Premature beats Sinus node dysfunction (CMS/HCC) Vitamin [...] Positive fecal occult blood test Sigmoid diverticulosis Hyperlipidemia Shoulder pain HPI 12/24/2024 The patient is here for follow-up visit. General she feels good. She reports that her left shoulder is better but it till discolored and has some pain but it has better movement. She is on long-term antibiotics because of infection. Other than that she denies chest pain or shortness of breath at rest or with exertion. She reports little fluttering in her throat on and off which lasts for few seconds only. She denies orthopnea or paroxysmal nocturnal dyspnea or dizziness or legs edema. 09/24/2024 Patient states that she has been doing well. She denies any chest discomfort at rest or with exertion. She denies exertional dyspnea, orthopnea or paroxysmal nocturnal dyspnea. She denies dizziness, syncope or near syncope. She denies palpitations, legs edema or discomfort on exertion. 07/18/2024 The patient is with history of [...] Hypertension Past Surgical History: Procedure Laterality Date CARDIAC CATHETERIZATION FOOT SURGERY X2 HAND SURGERY HYSTERECTOMY INSERT / REPLACE / REMOVE PACEMAKER 10/13/2020 SHOULDER SURGERY X4 TOTAL KNEE ARTHROPLASTY Bilateral TRIGGER FINGER RELEASE 08/12/2015 TUBAL LIGATION Family History Adopted: Yes Family history unknown: Yes Social History Tobacco Use Smoking status: Former Current packs/day: 0.00 Types: Cigarettes Start date: 1956 Quit date: 2000 Years since quittin.3 Smokeless [...] (Tambocor) 100 mg tablet, TAKE 1 TABLET BY MOUTH EVERY 12 HOURS, Disp: 180 tablet, Rfl: 3 furosemide (Lasix) 4 (more content not included)... [facility] 12-17-2024 History of Present illness Narrative Images from the original note were not included. HPI Results Additional comments: Mammo and breast us results Last edited by Carlene Yan LPN on 12/17/2024 10:58 AM. Subjective Patient ID: Breann Starks is a 79 y.o. female who presents for Results (Mammo and breast us results) and Hypertension. Hypertension Patient is here for [...] by mouth every 12 (twelve) hours HYDROcodone-acetaminophen ([place]) 5-325 MG tablet Take 1 tablet by mouth in the morning and 1 tablet in the evening and 1 tablet before bedtime. hydrocortisone ([place]) 0.2 % cream Apply topically 2 (two) times a day 45 g 1 ipratropium-albuterol (Duo-Neb) 0.5-2.5 mg/3 mL nebulizer solution Take 3 mL by nebulization in the morning and 3 mL at noon and 3 mL in the evening and 3 mL before bedtime. Multiple Vitamins-Minerals (CENTRUM SILVER 50+WOMEN PO) Take 1 tablet by mouth in the morning. omeprazole (PriLOSEC) [address] capsule Take 1 capsule (40 mg) by mouth Daily 90 capsule 1 penicillin v potassium (Veetid) 500 MG tablet Take 500 mg by mouth in the morning and 500 mg at noon and 500 mg in the evening and 500 mg before bedtime. spironolactone (Aldactone) 50 MG tablet Take 50 mg by mouth in the morning. verapamil SR (Calan SR) 180 MG ER tablet Take 360 mg by mouth in the morning. [DISCONTINUED] verapamil ER (Verelan) 180 MG 24 hr capsule Take 360 mg by mouth in the morning. No current facility-administered medications on file prior to visit. I have reviewed and reconciled the history and medication list with the patient today. Allergies Allergen Reactions Nsaids Other Reaction(s): HEART ISSUES Digoxin Rash Wound Dressing Adhesive Rash Social History Tobacco Use Smoking status: Former Average packs/day: 1 pack/day for 29.0 years (29.0 ttl pk-yrs) Types: Cigarettes Start date: 1965 Passive exposure: Past Vaping Use Vaping status: [...] TRIGGER FINGER RELEASE Left RF Visit Vitals Ht 4' 11 BMI 44.23 kg/m Smoking Status Former BSA [...] No hernia is present. Musculoskeletal: Right shoulder: No swelling or tenderness. Decreased range of motion. Cervical back: Normal range of motion. Lymphadenopathy: Cervical: No cervical adenopathy. Skin: General: Skin is warm and dry. Capillary Refill: Capillary refill takes less than 2 seconds. Neurological: General: No focal deficit present. Mental Status: She is alert and oriented to person, place, and time. Psychiatric: Mood and Affect: Mood normal. Behavior: Behavior normal. 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 On 1 month ATB course. Abnormal mammogram - Results discussed. She has left axillary LAD from above. Enlarged lymph nodes in armpit - This office visit was spent in consultation regarding the patient's current medical problems, differential diagnoses, testing/imaging results, and treatment options. Greater than 25 minutes was spent in [id number] consultation and coordination of care. No follow-ups on file. documented in this encounter [facility] 11-27-2024 Note Orthopedic Surgery Subjective Chief complaint: [...] her about suppression versus doing something definitive. [facility] 11-13-2024 Note Orthopedic Surgery Subjective Pain [...] to all digits and the wrist Strength: workforce services representative 5/5, thumb 5/5, interossei 5/5. wrist extension/flexion [...] be an additional personal documentation from me. [facility] 11-13-2024 Note Patient ID: Breann Starks [...] to verify the correct patient, procedure, equipment, ground support equipment assembler and site/side marked as required. [facility] 11-10-2024 Telephone encounter Note I think it is the op note left shoulder on 01/07/2022 ( Dr. Amin- [facility]) thanks [email or web address] Work Phone: 11-10-2024 Miscellaneous Notes I think it is the op note left shoulder on 01/07/2022 ( Dr. Amin- [facility]) thanks Patient called in about seeing and the referral to . Patient needs us to send the op report for LT shoulder to because 's office cannot.. 's fax number is [phone]. Is this ok? documented in this encounter [facility] 11-09-2024 Telephone encounter Note Patient called in about seeing and the referral to . Patient needs us to send the op report for LT shoulder to because 's office cannot.. 's fax number is [phone]. Is this ok? [facility] 11-07-2024 History of Present illness Narrative Images from the original note were not included. HISTORY OF PRESENT ILLNESS: EST PT Breann Starks is an 78 y.o. @ female. (EST PT) - RECHECK (L) SHOULDER ; S/P LABS (CBC W/ DIFF, CRP, SED RATE) S/P (L) REVERSE TSR 12/29/21 - DR AMIN XRAYS, (L) SHOULDER & C-SPINE 04/16/24 [facility] [place] [facility]BLE [place] OBTAIN IMAGES D/T PACEMAKER PLACEMENT BONE SCAN 05/02/24 [place] [facility] [place] [facility] [place] W/DIFF, CRP, SED RATE) LABS 05/09/24 @ [facility] (CBC / SED RATE / CRP) NO MDP / PREDNISONE NO RECENT PT PAIN MGMT @[facility] (LBP) (NECK PAIN 08/2024) NO CHANGE SINCE [...] HER (L) ARM TO USE A BACK FILER HELPER ON HER BACK ALLERGIES: Allergies Allergen Reactions [...] (TAMBOCOR) 100 mg, Every 12 hours HYDROcodone-acetaminophen ([place]) 5-325 MG tablet 1 tablet, 3 times [...] Elbow: none Palpation additional comments: Neg [employer] Newspaper Or Periodical Editor strength symmetric. Wrist flex/ ext. Symmetric 5/5 [...] We have recommended a second opinion at [facility] and set her up with a [...] requiring urgent evaluation. documented in this encounter [facility] 10-24-2024 History of Present illness Narrative Images from the original note were not included. HISTORY OF PRESENT ILLNESS: EST PT Breann Starks is an 78 y.o. @ female. (EST PT) (DR. HANSEN REFERRAL) - RECHECK (L) SHOULDER S/P (L) REVERSE TSR 12/29/21 - DR AMIN XRAYS, (L) SHOULDER & C-SPINE 04/16/24 [place] [facility] [place] [facility] [place] UNABLE TO OBTAIN IMAGES D/T PACEMAKER PLACEMENT BONE SCAN 05/02/24 @ [facility] [place] 05/09/24 @ [facility] (CBC / SED RATE / CRP) NO MDP / PREDNISONE NO RECENT PT PAIN MGMT @[facility] (LBP) (NECK PAIN 08/2024) CONTINUES TO HAVE [...] HER (L) ARM TO USE A BACK FILER HELPER ON HER BACK ALLERGIES: Allergies Allergen Reactions [...] (TAMBOCOR) 100 mg, Every 12 hours HYDROcodone-acetaminophen ([place]) 5-325 MG tablet 1 tablet, 3 times [...] Elbow: none Palpation additional comments: Neg [employer] Or Periodical Editor strength symmetric. Wrist flex/ ext. Symmetric 5/5 [...] due to internal joint prosthesis, initial encounter ([facility]) T84.50XA CBC and differential C-reactive protein Sedimentation [...] requiring urgent evaluation. documented in this encounter [facility] 10-17-2024 History of Present illness Narrative Images from the original note were not included. Subjective : Chief Complaint: Breann Starsk is an 78 y.o. female here for [...] by mouth every 12 (twelve) hours HYDROcodone-acetaminophen ([place]) 5-325 MG tablet Take 1 tablet by [...] October 17, 2024 documented in this encounter [facility] 10-16-2024 Radiology Diagnostic study note [facility] [place] [address] Ultrasound Report Signed Patient: Breann Starks MR#: [id number] : 1945 Acct:[id number] Age/Sex: 78 / F ADM Date: 5 Loc: [facility] Room: Type: [facility] Attending Dr: Dmitriy Duque DO Ordering Provider: Dmitriy Duque DO Date of Service: 10/16/24 US/US axilla: R92.8 ([id number]) MM/MM diagnostic mammo BI w/CAD: ENLARGED LT [...] Benton Jr., DMeenaOMeena10/16/2024 2:20 PM Dictation Location: [facility] Tech: Ghazal Barber Transcribed By: STAR 10/16/24 1420 Dictated By: Francisco J Benton Jr, DO 10/16/24 1343 Signed By: 10/16/24 1420 [facility] 10-04-2024 History of Present illness Narrative Images from the original note were not included. Breann Starks 1945 Breann Starks is a 78 y.o. female presents with chief complaint of Consult (Lt axillary lymphadenopathy) HPI: HPI patient was vigorously scratching her back with a back budget record clerk on February 15 and the next day [...] furosemide (LASIX) 40 mg, Oral, Daily HYDROcodone-acetaminophen ([place]) 5-325 MG tablet 1 tablet, 3 times [...] Former Physical Exam Exam conducted with a certified nurse midwife present. Constitutional: Appearance: Normal appearance. HENT: Head: [...] doctors on that documented in this encounter [facility] 09-24-2024 Note [place] [facility] - [facility] Subjective Breann Starks is a [...] Chronic obstructive lung disease (CMS/HCC) Atherosclerosis of grayling coronary artery of grayling heart without angina pectoris Diaphragmatic hernia Edema [...] occult blood test Sigmoid diverticulosis HPI 09/24/2024 Patient states that she has been doing well. She denies any chest discomfort at rest or with exertion. She denies exertional dyspnea, orthopnea or paroxysmal nocturnal dyspnea. She denies dizziness, syncope or near syncope. She denies palpitations, legs edema or discomfort on exertion. 07/18/2024 The patient is with history of [...] in the morning and at bedtime. (Patient (more content not included)... [facility] 09-19-2024 History of Present illness Narrative [...] Reported on 09/18/2024) 90 tablet 0 HYDROcodone-acetaminophen ([place]) 5-325 MG tablet Take 1 tablet by [...] on file. = documented in this encounter [facility] 09-19-2024 Instructions Luisana Leal NP - 09/19/2024 3:00 PM EST Macrobid ordered. Urine sent for culture. documented in this encounter [facility] 09-18-2024 History of Present illness Narrative [...] , wrist extensors , wrist flexor , workforce services representative strength 5/5. Left upper extremity strength is [...] reflex 2+ . Neal's sign negative. Coordination: Qrvusw-ge-fgjq testing and rapid alternating movements are normal [...] process. Plan: Urgent referral to Oncology, Dr. Monahan placed. Patient states she was asked previously to [...] and return instructions documented in this encounter [facility] 08-24-2024 Evaluation note Diagnosis Onset Date Resolution Iron deficiency anemia acute De cember 2023 12:55pm [facility] Work Phone: 1(538) 457-266312-13-2024 Evaluation note* Diagnosis Onset Date Resolution Status Admit Date Iron deficiency anemia acute De cember 2023 12:55pm Axillary lymphadenopathy acute September 25, 2024 11:08am Iron deficiency anemia acute Ja nuary 2024 11:08am [facility] Work Phone: 1(837) 839-725612-05-2024 History of Present illness Narrative* Renny Hansen [...] MOUTH EVERY DAY 90 tablet 0 HYDROcodone-acetaminophen ([place]) 5-325 MG tablet Take 1 tablet by [...] for As Previously Scheduled. [place] [id number] History of Present illness Narrative* Renny Hansen [...] MOUTH EVERY DAY 90 tablet 0 HYDROcodone-acetaminophen ([place]) 5-325 MG tablet Take 1 tablet by [...] Date Anemia Atrial fibrillation (CMS/HCC) Centrilobular emphysema ([facility]/HCC) COPD (chronic obstructive pulmonary disease) ([facility]) COPD exacerbation ([facility]) 10/17/2023 Coronary artery disease ([facility]/HCC) Diastolic dysfunction Essential hypertension ([facility]/HCC) History of tobacco abuse Nonalcoholic steatohepatitis (LOJA) Obstructive sleep apnea Osteoarthritis Paroxysmal atrial fibrillation ([facility]/HCC) Peptic ulcer disease Secondary pulmonary arterial hypertension ([facility]/HCC) Sick sinus syndrome ([facility]/HCC) Spinal stenosis, lumbar region with neurogenic claudication SVT (supraventricular tachycardia) ([facility]) URTI (acute upper respiratory infection) Vertigo Vitamin [...] Greater than 25 minutes was spent in [id number]-tgqp consultation and coordination of care. Persistent atrial fibrillation (HCC) (CMS/HCC) Nausea - FL upper GI double contrast w KUB; Future Follow up in about 2 weeks (around 08/16/2024) for Test/Lab Review. documented in this encounterSelect Specialty [id number] Telephone encounter Note* Telephone Encounter - DANIELLE Florence - 07/25/2024 1:07 PM EST My chart message. [facility] [id number] Miscellaneous Notes* Telephone Encounter - DANIELLE Florence - 07/25/2024 1:07 PM EST My chart message. documented in this encounterSelect Specialty [id number] History of Present illness Narrative* DANIELLE Florence [...] arm. Pt does see pain magment in [place]. Sees their office next week on the [...] MOUTH EVERY DAY 90 tablet 0 HYDROcodone-acetaminophen ([place]) 5-325 MG tablet Take 1 tablet by [...] Neck pain on left side Can continue [place] as needed for pain. Radicular pain in [...] (CMS/HCC) The patient is seeing a medical physics teacher for this condition, treatment is deferred to that specialist. Correspondence from that specialist and any available testing were reviewed during today's visit. She will be having Cardiac Catheterization for further evaluation of the pulmonary hypertension. Other thrombophilia Will recheck with updated labs. Follow up in about 4 weeks (around 08/21/2024) for Next scheduled follow-up with Dr. Hansen. documented in this encounterSelect Specialty [id number] Telephone encounter Note* Telephone Encounter - DANIELLE Florence - 07/24/2024 10:04 AM EST Will discuss with pt at today's OV [facility] [id number] Miscellaneous Notes* Telephone Encounter - DANIELLE Florence - 07/24/2024 10:04 AM EST Will discuss with pt at today's OV * Telephone Encounter - Renny Hansen MD - 07/05/2024 2:55 PM EDT Call after mammogram with plan. See last OV. documented in this encounterSelect Specialty [id number] Note[place] Cardiology - [facility] Subjective Breann Starks is a 78 y.o. year old female patient being seen for Atrial Fibrillation, PACEMAKER, Coronary Artery Disease, Hypertension, Sinus node dysfunction (HAS BOSTON PACER), Obesity, and Edema Patient Active Problem List Diagnosis Disorder of bursae of shoulder region Chronic obstructive lung disease (CMS/HCC) Atherosclerosis of grayling coronary artery of grayling heart without angina pectoris Diaphragmatic hernia Edema [...] rhythm, normal EKG Ech (more content not included)...[facility]10-24-2024 Telephone encounter Note* Telephone Encounter - Renny Hansen MD - 07/05/2024 2:55 PM EDT Call after mammogram with plan. See last OV. [facility] [id number] History of Present illness Narrative* Renny Hansen [...] MOUTH EVERY DAY 90 tablet 0 HYDROcodone-acetaminophen ([place]) 5-325 MG tablet Take 1 tablet by [...] Greater than 45 minutes was spent in wifw-ql-ucnl consultation and coordination of care. Follow up in about 4 months (around 11/05/2024) for Call after mammogram. documented in this encounterSelect Specialty [id number] History of Present illness Narrative* Monster Calvillo [...] of suspected CHF exacerbation. documented in this encounterSelect Specialty HospitalSbmoaqdsac04-48-1287 NoteHNO ID: [id number] Author: BOO BUCHANAN PA-C Service: ? Author Type: Physician Electrician Ship Type: Progress Notes Filed: 05/22/2024 13:53 Note [...] recommended for second opinion at [facility]. She also had a CRP and [...] No date: COPD (chronic obstructive pulmonary disease) ([facility]) SOCIAL HISTORY: Tobacco Use: Never EXAMINATION: GENERAL: [...] 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 ([facility]) T84.84XA CT SHOULDER WO IVCON LEFT Z96.612 [...] They have been given the name González Abacra he already, I explained this would be a good person to see for additional care if Dr. Lazar cannot take care of her. I ordered some additional inflammatory markers for trending purposes and a CT scan of her shoulder for further evaluation of the hardware. [facility] performed at [facility] to be uploaded to the system. Boo Buchanan (more content not included)...[facility] 05-22-2024 History of Present illness Narrative* [...] recommended for second opinion at [facility]. She also had a CRP and [...] No date: COPD (chronic obstructive pulmonary disease) ([facility]) SOCIAL HISTORY: Tobacco Use: Never EXAMINATION: GENERAL: [...] 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 ([facility]) T84.84XA CT SHOULDER WO IVCON LEFT Z96.612 [...] surgeon. They have beengiven the name González Dominikmerari he already, I explained this would be a good person to see for additional care if Dr. Lazar cannot take care of her. I ordered some additional inflammatory markers for trending purposes and a CT scan of her shoulder for further evaluation of the hardware. Bone scan performed at [facility] to be uploaded to the system. Boo Buchanan PA-C documented [facility] NoteHNO ID: [id number] Author: JYOTHI CRUZ RT(R) Service: ? Author [...] PATIENT PRESENTS WITH AN IMPLANTABLE OR ATTACHED FUR GLOSSER: No RADIOLOGY DEPARTMENT: General X-ray: Exam(s) Completed: Upper Extremity X-Ray(s): Shoulder, AP / TRUE AP / AXILLARY / SUPRA OUTLET left PERIPHERAL IV DATA: Not applicable SIGNED BY: RT Chaparrita(R) May 22, 2024 1:25 [facility]09-10-2024 History of Present illness Narrative* Jyothi Cruz [...] PATIENT PRESENTS WITH AN IMPLANTABLE OR ATTACHED FUR GLOSSER: No RADIOLOGY DEPARTMENT: General X-ray: Exam(s) Completed: Upper Extremity X- Ray(s): Shoulder, AP / TRUE AP / AXILLARY / SUPRA OUTLET left PERIPHERAL IV DATA: Not applicable SIGNED BY: RT Chaparrita(R) May 22, 2024 1:25 PM documented in [facility] History of Present illness Narrative* Jr. Sakina Cardenas, - 05/09/2024 10:00 AM EDT Images from the original note were not included. HISTORY OF PRESENT ILLNESS: EST PT Breann Starks is an 78 y.o. @ female. (EST PT ; LAST APPT W/ QUINN) RECHECK (L) SHOULDER PAIN ; [place] FOR B[place] SC[place] [facility] GIV[place] PER QUINN - REFERRAL SENT TO DR AMIN) & LABS 05/09/24 @ [facility] (CBC / SED RATE / CRP) S/P (L) REVERSE TSR 12/29/21 - DR AMIN XRAYS, (L) SHOULDER & C-SPINE 04/16/24 [place] [facility] [place] UNABLE TO OBTAIN IMAGES D/T PACEMAKER PLACEMENT BONE SCAN 05/02/24 @ [facility] [place] 05/09/24 @ [facility] (CBC / SED RATE / CRP) NO MDP / PREDNISONE NO RECENT PHYSICAL THERAPY PAIN MGMT @ [facility] (LBP) CONTINUES TO HAVE CONSTANT DISCOMFORT [...] USING HER(L) ARM TO USE A BACK FILER HELPER ON HER BACK ALLERGIES: Allergies Allergen Reactions Nsaids Other Reaction(s): HEART ISSUES Digoxin Rash Wound Dressing Adhesive Rash HOME MEDICATIONS: Current Outpatient Medications Medication Instructions apixaban (ELIQUIS) 5 mg, Oral, 2 times daily ferrous sulfate 325 mg, Oral, Daily with breakfast, Do not crush, chew, or split. flecainide (TAMBOCOR) 100 mg, Oral, Every 12 hours furosemide (LASIX) 40 mg, Oral, Daily HYDROcodone-acetaminophen ([place]) 5-325 MG tablet 1 tablet, Oral, 3 [...] Elbow: none Palpation additional comments: Neg Spurlings Newspaper Or Periodical Editor strength symmetric. Wrist flex/ ext. Symmetric 5/5 [...] I am acting as scribe for Dr. Cardenas/[facility], PLAN: We have reviewed prior (L) shoulder [...] basis. Sakina Cardenas D.O. documented in this encounterSelect Specialty [id number] NoteChief Complaint consultation for anemia HPI Staff 78 year old female presents on consultation from [facility] for anemia. Labs completed yesterday with [...] PSVT, spinal stenosis, cervical radiculopathy; referred from [facility] ED for anemia, low iron, and [...] PSVT (paroxysmal supraventricular t (more content not included)...[facility] CenterComment on above:Result Comment: Electronically Signed By: CATHERINE CUBA, Jair Quinonez\Date and Time Signed: 03/02/24 13:01 [id number] Evaluation note* Encounter Date Diagnosis Assessment Notes Treatment Notes Treatment Clinical Notes Sep, LOJA (nonalcoholic steatohepatitis) (ICD-10 - K75.81) OBTAIN FIBROSURE RESULTS FROM [facility] ON RESULTS PT ENCOURAGED WEIGHT LOSS RTO ONE YEAR WITH LABS ANNUALLY Sep, Unspecified cirrhosis of liver (ICD-10 - K74.60) [email or web address] Other 12-15-2021 Evaluation note* Encounter Date Diagnosis Assessment Notes Treatment Notes Treatment Clinical Notes Aug, Nonalcoholic steatohepatitis (LOJA) (ICD-10 - K75.81) RTO 6-8 WEEKS Aug, Unspecified cirrhosi s of liver (ICD-10 - K74.60) 15 Dec, 2021 Morbid obesity (ICD- 10 - E66.01) [email or web address] Other Evaluation + Plan note No data available for this section [facility] [place] Evaluation noteNo assessment information available [facility] Work Phone: Evaluation note* Diagnosis 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)- Primary Left shoulder pain, unspecified chronicity Left shoulder pain, unspecified chronicity [facility] Diagnosis Left shoulder pain, unspecified chronicity [facility] Diagnosis Acute on chronic diastolic (congestive) heart failure (CMS/HCC) [facility]* Diagnosis Essential hypertension (CMS/HCC)- Primary [...] syndrome, unspecified type documented in this encounter [facility] HealthcareEvaluation [facility]* Diagnosis Essential hypertension (CMS/HCC)- Primary [...] Unspecified essential hypertension documented in this encounter [facility]* Diagnosis Essential hypertension (CMS/HCC)- Primary [...] Other thrombophilia (CMS/HCC) documented in this encounter [facility] HealthcareEvaluation [facility]* Diagnosis Essential hypertension (CMS/HCC)- Primary [...] blood loss (chronic) documented in this encounter [facility]Evaluation [facility]* Diagnosis Essential hypertension (CMS/HCC)- [...] Nausea Nausea alone documented in this encounter [facility] HealthcareEvaluation [facility]* Diagnosis Essential hypertension (CMS/HCC)- Primary [...] Nausea Nausea alone documented in this encounter [facility]Evaluation note* Diagnosis Acute pain of left shoulder- Primary History of reverse total replacement of left shoulder joint documented [facility] encounter [facility]* Diagnosis Chronic left shoulder pain Pain in joint, shoulder region documented in this encounter [facility]* Diagnosis Acute on chronic diastolic (congestive) heart failure (CMS/HCC)- Primary documented in this encounter [facility]* Diagnosis Essential hypertension (CMS/HCC)- [...] (CMS/HCC) Atrial fibrillation documented in this encounter [facility]* Diagnosis Essential hypertension (CMS/HCC)- Primary [...] tissues of limb documented in this encounter [facility]* Diagnosis Essential hypertension (CMS/HCC)- Primary [...] unspecified single disease documented in this encounter [facility]Evaluation note* Diagnosis Essential hypertension (CMS/HCC)- [...] of lymph nodes documented in this encounter [facility] Healthcare[facility] note* Diagnosis Essential hypertension (CMS/HCC)- Primary [...] left upper extremity documented in this encounter [facility] Healthcare[facility] note* Diagnosis Essential hypertension (CMS/HCC)- Primary [...] initial encounter (CMS/HCC) documented in this encounter [facility] Healthcare[facility] note* Diagnosis Essential hypertension (CMS/HCC)- Primary [...] left shoulder joint documented in this encounter [facility] 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) Chronic left shoulder pain Pain in joint, shoulder region Iron deficiency anemia due to chronic blood loss- Primary Iron deficiency anemia secondary to blood loss (chronic) Chronic left shoulder pain Pain in joint, shoulder region Acute on chronic diastolic (congestive) heart failure- Primary 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 General [facility] [place] [facility] Discharge instructionsAmbulatory Orders* Referral to General Surgery Location: None Selected [facility] Work Phone: Progress note No data available for this section [facility] General Surgery [place] Reason for referral (narrative)* Diagnostic Procedure Only (Routine) - Closed Specialty Diagnoses / Procedures Referred By Contac t Referred To Contact XR IMAGING Diagnoses Left shoulder pain, unspecified chronicity Procedures XR SHOULDER ORTHO 4V AP/TRUE AP/LAT/OUTLET LEFT RADEX SHOULDER COMPLETE MINIMUM 2 VIEWS Boo Buchanan PA-C [address] [place] [address] [place] [address] Referral ID Status Reason Start Date Expiration Date V isits Requested Visits Authorized [id number] Closed Auto-Generate d Referral 05/08/2024 06/07/2025 1 1 [facility] for visit Narrative* Diagnostic Procedure Only (Routine) - Closed Specialty Diagnoses / Procedures Referred By Contac t Referred To Contact XR IMAGING Diagnoses Left shoulder pain, unspecified chronicity Procedures XR SHOULDER ORTHO 4V AP/TRUE AP/LAT/OUTLET LEFT RADEX SHOULDER COMPLETE MINIMUM 2 VIEWS Boo Buchanan PA-C [address] [place] [address] [place] [address] Referral ID Status Reason Start Date Expiration Date V isits Requested Visits Authorized [id number] Closed Auto-Generate d Referral 05/08/2024 06/07/2025 1 1 [facility] for visit Narrative* Consultation (Routine) - Closed Specialty Diagnoses / Procedures Referred By Contac t Referred To Contact Neurology Diagnoses Neck pain on left side Procedures HI OFFICE/OUTPATIENT NEW HIGH MDM 60 MINUTES Renny Hansen MD [address] [facility] [address] [place] [address] Phone: tel: fax: Paula Lord MD [address] [place] [address] Phone: tel: fax: Referral ID Status Reason Start Date Expiration Date V isits Requested Visits Authorized [id number] Closed Specialty Services Required 09/13/2024 03/12/2025 1 [...] August 24 12:55pm Axillary lymphadenopathy September 25, 2 025 11:08am Iron deficiency anemia September 25 11:08am [...] Diagnoses Chronic left shoulder pain Monster Calvillo, DIGITAL ACCOUNT COORDINATOR [address] [place] [address] Referral ID Status Reason Start Date Expiration Date V isits Requested Visits Authorized [id number] Pending Review 05/16/2024 11/12/2024 1 1 Specialty Diagnoses / Procedures Referred By Contac t Referred To Contact CT IMAGING Diagnoses 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) Procedures CT SHOULDER WO IVCON LEFT CT UPPER EXTREMITY W/O CONTRAST MATERIAL Boo Buchanan PA-C [address] [facility] [place] [address] [place] [address] Referral ID Status Reason Start Date Expiration Date Visits Requested Visits Authorized [id number] New Request Auto-Generat ed Referral 05/22/2024 06/21/2025 1 1 Specialty Diagnoses / Procedures Referred By Contac t Referred To Contact XR IMAGING Diagnoses Left shoulder pain, unspecified chronicity Procedures XR SHOULDER ORTHO 4V AP/TRUE AP/LAT/OUTLET LEFT RADEX SHOULDER COMPLETE MINIMUM 2 VIEWS Boo Buchanan PA-C [address] [facility] [place] [address] [place] [address] Referral ID Status Reason Start Date Expiration Date V isits Requested Visits Authorized [id number] Closed Auto-Generate d Referral 05/08/2024 06/07/2025 1 1 Additional Source Comments INFORMATION SOURCE (unrecogn ized section and content) DATE CREATED AUTHOR 10/23/2021 [facility] DATE CREATED AUTHOR AUTHOR'S ORGANIZ ATION 01/22/2022 [facility] DATE CREATED AUTHOR AUTHOR'S ORGANIZ ATION 02/18/2023 [facility] DATE CREATED AUTHOR AUTHOR'S ORGANIZ ATION 03/11/[address] [facility] DATE CREATED AUTHOR AUTHOR'S ORGANIZ ATION 05/24/2024 [facility] DATE CREATED AUTHOR AUTHOR'S ORGANIZ ATION 12/18/2024 [facility] DATE CREATED AUTHOR AUTHOR'S ORGANIZ ATION 12/23/2024 [facility] DATE CREATED AUTHOR AUTHOR'S ORGANIZ ATION 01/04/2025 [facility] DATE CREATED AUTHOR AUTHOR'S ORGANIZ ATION 01/23/2025 [facility] REASON FOR VISIT (unrecogniz ed section and content) Reason Comments Pain Specialty Diagnoses / Procedures Referred By Currysolomon julisa Referred To Contact Orthopaedic Surgery Diagnoses Injury of left shoulder and upper arm, sequela Left shoulder pain, unspecified chronicity Renny Hansen MD [address] [facility] [address] [place] [address] Phone: tel: fax: Jr. Sakina Cardenas, DO [address] [place] [address] Phone: tel: fax: Referral ID Status Reason Start Date Expiration Date V isits Requested Visits Authorized [id number] Closed Specialty Services Required 10/17/2024 04/15/2025 1 1 Reason Comments Radiology XR Reason Comments New Specialty Diagnoses / Procedures Referred By Millie julisa Referred To Contact Orthopedics / [facility] Diagnoses Acute pain of left shoulder History of reverse total replacement of left shoulder joint Procedures OFFICE/OUTPATIENT NEW HIGH MDM 60 MINUTES OFFICE/OUTPATIENT ESTABLISHED HIGH MDM 40 MIN AMB REFERRAL TO ORTHOPAEDIC SURGERY Pedro Pablo Cruz PA [address] [facility] [address] [place] [address] González Alvarado MD [address] [place] [address] Referral ID Status Reason Start Date Expiration Date V isits Requested Visits Authorized [id number] Authorized 05/08/2024 09/11/2024 99 99 Reason Comments [...] Reason Onset Date Comments OP Note 11/09/2024 Reason Comments Results Mammo and breast us results Hypertension Care Teams (unrecognized sec tion and [...] October 11, 2023 End: October 11, 2023 Dietetic Aide Relationship Specialty Start Date End Date Shaikh [...] May 02, 2024 End: May 02, 2024 Dietetic Aide Relationship Specialty Start Date End Date Luisana Johnson MD [address] [place] [address] PCP - General 01/05/06 Pedro Pablo Cruz MD [address] [place] [address] Referring Infectious Diseases 05/07/24 Dietetic Aide Relationship Specialty Start Date End Date Luisana Johnson MD [address] [place] [address] PCP - General 01/05/06 Pedro Pablo Cruz MD [address] [place] [address] Referring Infectious Diseases 05/07/24 Dietetic Aide Relationship Specialty Start Date End Date Luisana Johnson MD [address] [place] [address] PCP - General 01/05/06 Pedro Pablo Cruz MD [address] [place] [address] Referring Infectious Diseases 05/07/24 Dietetic Aide Relationship Specialty Start Date End Date Wesley Long MD [address] [place] [address] PCP - General Family Medicine 05/17/24 Monster Calvillo NP [address] [place] [address] Nurse Practitioner Family Medicine 05/17/24 Dietetic Aide Relationship Specialty Start Date End Date Wesley Long MD [address] [place] [address] PCP - General Family Medicine 05/17/24 Monster Calvillo NP [address] [place] [address] Nurse Practitioner Family Medicine 05/17/24 Dietetic Aide Relationship Specialty Start Date End Date Wesley Long MD [address] [place] [address] PCP - General Family Medicine 05/17/24 Monster Calvillo NP [address] [place] [address] Nurse Practitioner Family Medicine 05/17/24 Dietetic Aide Relationship Specialty Start Date End Date Wesley Long MD [address] [place] [address] PCP - General Family Medicine 05/17/24 Monster Calvillo NP [address] [place] [address] Nurse Practitioner Family Medicine 05/17/24 Dietetic Aide Relationship Specialty Start Date End Date Wesley Long MD [address] [place] [address] PCP - General Family Medicine 05/17/24 Monster Calvillo NP [address] [place] [address] Nurse Practitioner Family Medicine 05/17/24 Dietetic Aide Relationship Specialty Start Date End Date Wesley Long MD [address] [place] [address] PCP - General Family Medicine 05/17/24 Monster Calvillo NP [address] [place] [address] Nurse Practitioner Family Medicine 05/17/24 Dietetic Aide Relationship Specialty Start Date End Date Wesley Long MD [address] [place] [address] PCP - General Family Medicine 05/17/24 Monster Calvillo NP [address] [place] [address] Nurse Practitioner Family Medicine 05/17/24 Dietetic Aide Relationship Specialty Start Date End Date Wesley Long MD [address] [place] [address] PCP - General Family Medicine 05/17/24 Monster Calvillo NP [address] [place] [address] Nurse Practitioner Family Medicine 05/17/24 Dietetic Aide Relationship Specialty Start Date End Date Wesley Long MD [address] [place] [address] PCP - General Family Medicine 05/17/24 Monster Calvillo NP [address] [place] [address] Nurse Practitioner Family Medicine 05/17/24 Dietetic Aide Relationship Specialty Start Date End Date Wesley Long MD [address] [place] [address] PCP - General Family Medicine 05/17/24 Monster Calvillo NP [address] [place] [address] Nurse Practitioner Family Medicine 05/17/24 Dietetic Aide Relationship Specialty Start Date End Date Wesley Long MD [address] [place] [address] PCP - General Family Medicine 05/17/24 Monster Calvillo NP [address] [place] [address] Nurse Practitioner Family Medicine 05/17/24 Dietetic Aide Relationship Specialty Start Date End Date Wesley Long MD [address] [place] [address] PCP - General Family Medicine 05/17/24 Monster Calvillo NP [address] [place] [address] Nurse Practitioner Family Medicine 05/17/24 Dietetic Aide Relationship Specialty Start Date End Date Wesley Long MD [address] [place] [address] PCP - General Family Medicine 05/17/24 Monster Calvillo NP [address] [place] [address] Nurse Practitioner Family Medicine 05/17/24 Dietetic Aide Relationship Specialty Start Date End Date Wesley Long MD [address] [place] [address] PCP - General Family Medicine 05/17/24 Monster Calvillo NP [address] [place] [address] Nurse Practitioner Family Medicine 05/17/24 Dietetic Aide Relationship Specialty Start Date End Date Shaikh Denis MD [address] [place] [address] PCP - General Internal Medicine 10/17/23 Dietetic Aide Relationship Specialty Start Date End Date Shaikh Denis MD [address] [place] [address] PCP - General Internal Medicine 10/17/23 Dietetic Aide Relationship Specialty Start Date End Date Shaikh Deins MD [address] [place] [address] PCP - General Internal Medicine 10/17/23 Dietetic Aide Relationship Specialty Start Date End Date Wesley Long MD [address] [place] [address] PCP - General Family Medicine 05/17/24 Monster Calvillo NP [address] [place] [address] Nurse Practitioner Family Medicine 05/17/24 Dietetic Aide Relationship Specialty Start Date End Date Wesley Long MD [address] [place] [address] PCP - General Family Medicine 05/17/24 Monster Calvillo NP [address] [place] [address] Nurse Practitioner Family Medicine 05/17/24 Dietetic Aide Relationship Specialty Start Date End Date Wesley Long MD [address] [place] [address] PCP - General Family Medicine 05/17/24 Monster Calvillo NP [address] [place] [address] Nurse Practitioner Family Medicine 05/17/24 Dietetic Aide Relationship Specialty Start Date End Date Wesley Long MD [address] [place] [address] PCP - General Family Medicine 05/17/24 Monster Calvillo NP [address] [place] [address] Nurse Practitioner Family Medicine 05/17/24 Dietetic Aide Relationship Specialty Start Date End Date Wesley Long MD [address] [place] [address] PCP - General Family Medicine 05/17/24 Monster Calvillo NP [address] [place] [address] Nurse Practitioner Family Medicine 05/17/24 Dietetic Aide Relationship Specialty Start Date End Date Renny Hansen MD [address] [facility] [address] [place] [address] PCP - General Internal Medicine 09/19/24 Team [...] September 25, 2024 End: September 25, 2024 Dietetic Aide Relationship Specialty Start Date End Date Renny Hansen MD [address] [facility] [address] [place] [address] PCP - General Internal Medicine 09/19/24 Dietetic Aide Relationship Specialty Start Date End Date Renny Hansen MD [address] [facility] [address] [place] [address] PCP - General Internal Medicine 09/19/24 Dietetic Aide Relationship Specialty Start Date End Date Renny Hansen MD [address] [facility] [address] [place] [address] PCP - General Internal Medicine 09/19/24 Dietetic Aide Relationship Specialty Start Date End Date Renny Hansen MD [address] [facility] [address] [place] [address] PCP - General Internal Medicine 09/19/24 Team [...] October 16, 2024 End: October 16, 2024 Dietetic Aide Relationship Specialty Start Date End Date Renny Hansen MD [address] [facility] [address] [place] [address] PCP - General Internal Medicine 09/19/24 Dietetic Aide Relationship Specialty Start Date End Date Renny Hansen MD [address] [facility] [address] [place] [address] PCP - General Internal Medicine 09/19/24 Team Status: Inactive Member Role Status Dates Renny Hansen II MD Primary Care Provider Active Start: October 24, 2024 End: October 24, 2024 Sakina Cardenas Jr, DO Attending Provider Active Start: October 24, 2024 End: October 24, 2024 Team Status: Inactive Member Role Status Dates Renny Hansen II MD Primary Care Provider Active Start: October 29, 2024 End: October 29, 2024 Juan J Adamowicz II, DO Attending Provider Active Start: October 29, 2024 End: October 29, 2024 Team Status: Active Member Role Status Dates Renny Hansen II MD Primary Care Provid er, Referring Provider Active Start: October 29, 2024 Katharina Gale Tre , LOGISTICS PLANNING ENGINEER Attending Provider Active Start: October Dietetic Aide Relationship Specialty Start Date End Date Renny Hansen MD [address] [place] [address] PCP - General Internal Medicine 09/19/24 Renny Hansen MD [address] [facility] [address] [place] [address] PCP - [place] 09/12/2409/11 Cindi Jenkins LSW [employer] [facility] 11/06/24 Dietetic Aide Relationship Specialty Start Date End Date Renny Hansen MD [address] [place] [address] PCP - General Internal Medicine 09/19/24 Renny Hansen MD [address] [facility] [address] [place] [address] PCP - [facility] [place] 09/12/2409/11 Cindi Jenkins [facility] [employer] [employer] Family [facility] 11/06/24 Dietetic Aide Relationship Specialty Start Date End Date Renny Hansen MD [address] [place] [address] PCP - General Internal Medicine 09/19/24 Renny Hansen MD [address] [facility] [address] [place] [address] PCP - [facility] [place] 09/12/2409/11 Cindi Jenkins, GAMING CAGE CASHIER [employer] [employer] [facility] 11/06/24 Dietetic Aide Relationship Specialty Start Date End Date Renny Hansen MD [address] [place] [address] PCP - General Internal Medicine 09/19/24 Renny Hansen MD [address] [place] [address] PCP - [facility] [place] 09/12/2409/11 Lisa Ramirez LPN 12/05/24 Dietetic Aide Relationship Specialty Start Date End Date Renny Hansen MD [address] [place] [address] PCP - General Internal Medicine 09/19/24 Renny Hansen MD [address] [place] [address] PCP - [facility] [place] 09/12/2409/11 Lisa Ramirez LPN 12/05/24 Dietetic Aide Relationship Specialty Start Date End Date Renny Hansen MD [address] [place] [address] PCP - General Internal Medicine 09/19/24 Renny Hansen MD [address] [place] [address] PCP - [place] 09/12/2409/11 Lisa Ramirez LPN 12/05/24 Goals (unrecognized section and content) Goals may be documented in a n alternate section Source Comments (unrecognize d section and content) In the event this informatio n is protected by the Federal Confidentiality of Alcohol and Drug Abuse Patient Records regulations: The Federal rules restrict any use of the information to criminally investigate or prosecute any alcohol or drug abuse patient.[facility] the event this information is protected by the Federal Confidentiality of Alcohol and Drug Abuse Patient Records regulations: The Federal rules restrict any use of the information to criminally investigate or prosecute any alcohol or drug abuse patient.[facility] the event this information is protected by the Federal Confidentiality of Alcohol and Drug Abuse Patient Records regulations: The Federal rules restrict any use of the information to criminally investigate or prosecute any alcohol or drug abuse patient.[facility] FOR RECORDS PERTAINING TO PATIENTS WHO [...] BE BASED ON THE PRIMARY CLINICAL RECORDS. [facility] [employer] [facility]. provides no warranty or guarantee of the accuracy or completeness of information in this document.
[2025-01-27 10:28] VITALS: BP 114/92; PULSE 63; TEMP 36.7; O2SAT 97; BMI 44.4
--- NOTE | 2025-01-27 10:52 | ED.BACK1 ---
HPI HPI - Back Pain/Injury General Chief Complaint: Back Pain/Injury Stated Complaint: SEVERE BACK PAIN Time Seen by Provider: 01/27/25 10:34 Source: patient Mode of arrival: walk-in History of Present Illness HPI Narrative: Patient have a history of chronic pain mostly in her back and left hip she mentioned that this is not a new pain that she is coming with to the ER, but she is regularly getting injection for pain and apparently she could not get her injection sooner this month The patient ready take oxycodone at home and she did not take it today because she thought by coming to the ER she might get her injection faster No fall no trauma no new symptoms of incontinence of urine or stool or numbness or tingling that is new There is no history of weakness or any change in her pain Related Data Home Medications ?Medication ?Instructions ?Recorded ?Confirmed cholecalciferol (vitamin D3) 125 5,000 unit PO DAILY 02/16/23 01/27/25 mcg (5,000 unit) tablet (Vitamin D3) flecainide 100 mg tablet 100 mg PO Q12H 02/16/23 01/27/25 omeprazole 40 mg capsule,delayed 40 mg PO DAILY 02/16/23 01/27/25 release spironolactone 25 mg tablet 25 mg PO DAILY 02/16/23 01/27/25 (Aldactone) verapamil 180 mg tablet,extended 180 mg PO Q12H 02/16/23 01/27/25 release (Calan SR) apixaban 5 mg tablet (Eliquis) 5 mg PO BID 05/11/23 01/27/25 furosemide 40 mg tablet 40 mg PO DAILY 03/01/24 01/27/25 Previous Rx's ?Medication ?Instructions ?Recorded naloxone 4 mg/actuation nasal 4 mg intranasal Q3M PRN opioid 05/17/24 spray (Narcan) overdose #2 ea baclofen 10 mg tablet 10 mg PO TID #90 tabs 10/10/24 hydrocodone 5 mg-acetaminophen 325 1 tab PO TID PRN pain #90 tabs 10/26/24 mg tablet hydrocodone 5 mg-acetaminophen 325 1 tab PO TID PRN pain #90 tabs 25 mg tablet Allergies Allergy/AdvReac Type Severity Reaction Status Date / Time No Known Drug Allergies Allergy Verified 12/17/24 06:58 Opioid HPI Opioid Management Most Recent Opioid Data: Last Pain Scale 10 Today, 10:28 Review of Systems ROS Status of ROS 10 or more systems reviewed and unremarkable except as noted in history and below [facility] Medical History (Updated 01/27/25 @ 10:54 by Holley Johnson MD) Arthritis ?M19.90 - Unspecified osteoarthritis, unspecified site (ICD-10) Chronic obstructive pulmonary disease ?J44.9 - Chronic obstructive pulmonary disease, unspecified (ICD-10) Peptic ulcer ?K27.9 - Peptic ulcer, site unspecified, unspecified as acute or chronic, without hemorrhage or perforation (ICD-10) Dyspnea on exertion ?R06.09 - Other forms of dyspnea (ICD-10) Anemia ?D64.9 - Anemia, unspecified (ICD-10) Hypertension ?I10 - Essential (primary) hypertension (ICD-10) Extremity edema ?R60.0 - Localized edema (ICD-10) Congestive heart failure ?I50.9 - Heart failure, unspecified (ICD-10) Atrial fibrillation ?I48.91 - Unspecified atrial fibrillation (ICD-10) Shoulder pain ?M25.519 - Pain in unspecified shoulder (ICD-10) Fatty liver ?K76.0 - Fatty (change of) liver, not elsewhere classified (ICD-10) History of shingles ?Z86.19 - Personal history of other infectious and parasitic diseases (ICD-10) Osteoarthritis ?M19.90 - Unspecified osteoarthritis, unspecified site (ICD-10) Pacemaker ?Z95.0 - Presence of cardiac pacemaker (ICD-10) Hiatal hernia ?K44.9 - Diaphragmatic hernia without obstruction or gangrene (ICD-10) Low back pain ?M54.50 - Low back pain, unspecified (ICD-10) Irregular heart beat ?I49.9 - Cardiac arrhythmia, unspecified (ICD-10) Surgical History History of shoulder replacement ?Z96.619 - Presence of unspecified artificial shoulder joint (ICD-10) S/P rotator cuff repair ?Z98.890 - Other specified postprocedural states (ICD-10) History of colonoscopy ?Z98.890 - Other specified postprocedural states (ICD-10) S/P YANELI-BSO ?Z90.710 - Acquired absence of both cervix and uterus (ICD-10) ?Z90.722 - Acquired absence of ovaries, bilateral (ICD-10) ?Z90.79 - Acquired absence of other genital organ(s) (ICD-10) H/O cardiac catheterization ?Z98.890 - Other specified postprocedural states (ICD-10) H/O arthroscopy of shoulder ?Z98.890 - Other specified postprocedural states (ICD-10) H/O arthroscopy of knee ?Z98.890 - Other specified postprocedural states (ICD-10) History of appendectomy ?Z90.49 - Acquired absence of other specified parts of digestive tract (ICD-10) History of total knee arthroplasty ?Z96.659 - Presence of unspecified artificial knee joint (ICD-10) Social History Within the past year, how often did you have a drink containing alcohol: monthly or less Smoking status: Former smoker Non-prescribed substance use: denies use Previous occupational history: retired Highest level of school completed/degree received: high school graduate Little interest or pleasure in doing things: not at all Feeling down, depressed, or hopeless: not at all Exam Narrative Exam Narrative: Nurses notes and vital signs reviewed and patient is not hypoxic. General: Well-appearing and in no apparent distress. Skin: Warm, dry, no pallor noted. No rash. Head: Normocephalic, atraumatic. Neck: Supple, non-tender. Eye: Pupils are equal, round and EOMI. No scleral icterus. Ears, Nose, Mouth, and Throat: TM are clear, no nasal mucosal hypertrophy. Oral mucosa is moist, no posterior oropharynx erythema, uvula is mid-line Cardiovascular: Regular Rate and Rhythm without murmur, gallop or rub. Respiratory: No accessory muscle use or respiratory distress. Lungs are clear to auscultation, no wheezing, rales or rhonchi Chest Wall: no tenderness Back: No midline thoracic or lumbar vertebral tenderness. No CVA tenderness Musculoskeletal: normal ROM, no calf or popliteal tenderness, no lower extremity edema/swelling and there is tenderness upon palpation of the left hip area although there is no redness no hotness no signs of infection GI: Abdomen is soft, non-distended. Normal bowel sounds. No masses appreciated. No tenderness to palpation. No rebound, guarding, or rigidity noted. Neurological: A&O x4. No cranial nerve dysfunction observed. Constitutional Vital Signs, click to edit/add: Last Vital Signs Temp 98.0 F 01/27/25 10:28 Pulse 62 01/27/25 11:18 Resp 18 01/27/25 11:18 BP 118/88 01/27/25 11:18 Pulse Ox 98 01/27/25 11:18 O2 Del Method Room Air 01/27/25 10:28 Course Vital Signs Vital signs: Vital Signs Temperature 98.0 F 01/27/25 10:28 Pulse Rate 63 01/27/25 10:28 Respiratory Rate 18 01/27/25 10:28 Blood Pressure 114/92 H 01/27/25 10:28 Pulse Oximetry 97 01/27/25 10:28 Oxygen Delivery Method Room Air 01/27/25 10:28 Temperature 98.0 F 01/27/25 10:28 Pulse Rate 62 01/27/25 11:18 Respiratory Rate 18 01/27/25 11:18 Blood Pressure 118/88 01/27/25 11:18 Pulse Oximetry 98 01/27/25 11:18 Oxygen Delivery Method Room Air 01/27/25 10:28 MDM - Back Pain/Injury MDM Narrative Medical decision making narrative: The patient have a chronic history of pain and she admitted that this is not an different than her chronic pain I did explain to her that right now her injection that she usually obtained and pain management I am not able to provide her with that injection but I can provide her with Solu-Medrol She agreed that she can take Solu-Medrol injection and she will follow-up with her doctor tomorrow for further evaluation pain management Patient did not take her hydrocodone today I provided with 1 pill in the ER to continue her medication at home The patient is to follow up with primary care physician in next 2-3 days or to return to the emergency department should any of the signs or symptoms worsen or new symptoms develop. The patient agrees with the following Diagnosis and Treatment plan and the patient will be discharged home. Discharge Plan Discharge Chief Complaint: Back Pain/Injury Clinical Impression: Chronic pain Patient Disposition: Home, Self-Care Time of Disposition Decision: 10:54 Condition: Good Prescriptions / Home Meds: No Action Eliquis 5 mg tablet 5 mg PO BID furosemide 40 mg tablet 40 mg PO DAILY naloxone [Narcan] 4 mg/actuation spray,non-aerosol 4 mg intranasal Q3M PRN (Reason: opioid overdose) Qty: 2 0RF Rx Instructions: spray 1 dose into ONE nostril; alternate nostrils w each dose until help arrives baclofen 10 mg tablet 10 mg PO TID Qty: 90 2RF hydrocodone-acetaminophen 5-325 mg tablet 1 tab PO TID PRN (Reason: pain) Qty: 90 0RF Rx Instructions: MUST LAST 30 DAYS flecainide 100 mg tablet 100 mg PO Q12H spironolactone [Aldactone] 25 mg tablet 25 mg PO DAILY cholecalciferol (vitamin D3) [Vitamin D3] 125 mcg (5,000 unit) tablet 5,000 unit PO DAILY omeprazole 40 mg capsule,delayed release(DR/EC) 40 mg PO DAILY verapamil [Calan SR] 180 mg tablet extended release 180 mg PO Q12H hydrocodone-acetaminophen 5-325 mg tablet 1 tab PO TID PRN (Reason: pain) Qty: 90 0RF Print Language: Cambodian Instructions: Pain Management (ED) Referrals: FAVIAN LUNA [Primary Care Provider, Internal Medicine] - 1 week Discharge Date/Time: 01/27/25 11:20
[2025-01-27] MEDS: HYDROCODONE/ACET 5-325 MG TABLET 1 TAB PO (11:01)
[2025-01-27] MEDS: METHYLPREDNISOLONE SOD SUCC PF 40 MG/ML VIAL 60 MG IM (11:02)
[2025-01-27 11:18] VITALS: BP 118/88; PULSE 62; O2SAT 98
== END 2025-01-27 11:20 | disposition home or self-care (01) ==
PROVIDERS: Emergency Provider Emergency Medicine; PCP Internal Medicine
DX: G89.29 Other chronic pain (principal); M54.9 Dorsalgia, unspecified; Z96.619 Presence of unspecified artificial shoulder joint; Z90.710 Acquired absence of both cervix and uterus; Z90.722 Acquired absence of ovaries, bilateral; Z96.659 Presence of unspecified artificial knee joint; Z90.49 Acquired absence of other specified parts of digestive tract; Z87.891 Personal history of nicotine dependence
CPT/HCPCS: 96372; 99284; J2919

== ENCOUNTER 2025-01-30 09:28 | Outpatient (OUT) | payer MEDICARE, SELFPAY ==
--- OUTSIDE RECORDS SUMMARY | 2025-01-30 09:33 | XMS_ITS | CCD ---
Author Organization [facility] CliniSymo Care Team Providers Care Educational Institution Curator Name Role Phone ZANE MCGUIRE Admitting Unavailable [...] LUISANA Jarquin Consulting Unavailable JOHNSON ., DR LUIASNA Jarquin Primary Care Unavailable ZIEBDR PAULA REBOLLEDO [...] Admitting Unavailable RIVER ., KAYLEY Attending Unavailable [place], DR HONG Morgan Consulting Unavailable JOHNSON ., [...] Primary Care Unavailable THANG Clement Attending Provider [phone] MD Janice Denis Primary Care Provider THANG Clement Attending Provider Shaikh Denis MD Primary Care Provider Jair ALEXANDER Attending Unavailable SHAIKH DENIS Referring Unavailable Jair ALEXANDER Attending Unavailable MD Santos Denisikh Primary Care Provider DO James Jones Attending Provider YOLY Cruz Attending Provider [phone] Luisana Johnson MD Primary Care Provider Pedro [...] Attending Provider Renny Hansen II Referring Provider [phone] Katharina Toledo APRN Attending Provider Dmitriy Duque DO Attending Provider [phone] Sakina Cardenas DO Attending Provider Renny Hansen II Referring Provider Katharina Toledo APRN Attending Provider Renny Hansen MD Unavailable Gregory NEWS WIRE PHOTO OPERATOR, Cindi Unavailable [phone] Lisa Ramirez LPN Unavailable Unavailable SHAIKH [...] Tre, Katharina Gale Attending Unavail able [place], [facility] Primary Care Unavailable Jones, James J Admitting Unavailable Jones, James J Attending Unavailable [place], [facility] Primary Care Unavailable Jones, James J Admitting Unavailable Jones, James J Attending Unavailable [place], [facility] Primary Care Unavailable Cruz, Pedro Pablo Admitting [...] (1 source) meloxicam; Translations: [Mobic] Drug Allergy [facility] Repository Unclassified (1 source) No Known Medication Allergies; Translations: [No Known Medication Allergies] Propensity to adverse reactions (disorder) [facility] Repository (1 source) novacaine; Translations: [novacaine] Propensity to adverse reactions (disorder) 2 [facility] Repository (20 sources) NSAIDs Propensity to adverse reactions 4 HEART [facility] (7 sources) Adhesive agent; Translations: [adhesive] Allergy to substance 4 Swelling [facility] (4 sources) NSAIDS (Non-Steroidal Anti-Inflamma; Translations: [NSAIDS (Non-Steroidal Anti-Inflamma] Allergy to substance 4 HEART ISSUES [facility] (20 sources) Digoxin Drug Allergy 4 [facility] Work Phone: (20 sources) Wound Dressing Adhesive Drug Allergy 4 [facility] Medications Current Medications Medication Drug Class(es) Dates Sig (Normalized) Sig (Original) 8 hr acetaminophen 650 mg extended release oral tablet (20 sources) Start: 09-25-2024 take 1 tablet by mouth every twelve hours Acetaminophen (Tylenol Arthritis Pain) 650 mg tablet extended release Active 650 MG PO Every 12 hours September 25, 2024 12:00am take 2 tablets by mo [facility] every six hours for pain [...] 1 tablet by mouth at bedtime HYDROcodone-acetaminophen (Rainelle) 5-325 MG tablet Take 1 tablet by mouth in the morning and 1 tablet in the evening and 1 tablet before bedtime. 06/21/2024 Active Start: 04-11-2024 End: 06-15-2024 take 1 tablet by mouth three times daily as needed for pain HYDROcodone-acetaminophen (Rainelle) 5-325 MG tablet Indications: Chronic left shoulder pain Take 1 tablet by mouth 3 (three) times a day as needed for severe pain 90 tablet 05/16/2024 06/15/2024 Active Start: 03-01-2024 take 1 tablet by [place] twice daily acetaminophen-hydrocodone 325 mg-5 mg or [...] cream (14 sources) Corticosteroid Start: 10-17-2024 hydrocortisone ([place]res) 0.2 [...] 1 tablet by mouth in the [facility] Multiple Vitamins-Minerals (CENTRUM SILVER 50+WOMEN PO) Take [...] 07/09/2024 Active take 1 capsule by mo [facility] every twenty-four hours Omeprazole 40 [...] Active Start: 03-01-2024 take 1 capsule by [facility] once daily verapamil 180 mg Cap-ER 180 mg = 1 cap(s), Oral, Daily, Refills(s) 0 Start Date: 03/01/24 Status: Ordered Start: 11-16-2023 take 1 capsule by [facility] every twenty-four hours Verapamil 180 mg capsule,ext rel. pellets 24 hr Active MG PO November 16, 2023 12:00am Start: 02-14-2023 End: 12-17-2024 take 1 capsule by mouth every twenty-four hours in the morning verapamil ER (Verelan) 180 MG 24 hr capsule Take 360 mg by mouth in the morning. 02/14/2023 12/17/2024 Discontinued (Duplicate order) take 1 capsule by [facility] [...] Daily, # 90 tab(s), Refills(s) 0, Pharmacy: [facility]/pharmacy #[id number], 141, cm, 01/11/23 10:30:00 [...] disease (20 sources) Atherosclerotic heart disease of enterprise coronary artery without angina pectoris; Translations: [Coronary [...] Onset: 3 Episodic Other aftercare (1 source) director long term care (current) use of anticoagulants; Translations: [NURSING HOME CURRNT USE 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] Onset: 3 Episodic Other aftercare (1 source) Other detention (current) drug therapy; Translations: [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 Labs are okay. Continue penicillin. Normal [facility] Telephoneon 01-18-2025 Telephone [id number] Bob Starksnick edgar Mckenzie 1945 F Date Provider Department [place] 01/18/2025 JAIR BOLAND [facility] INF Carol Ann Heal Family History Adopted: Yes Family history unknown: Yes Family Status - Relation Status Age at Mother Father Normal [facility] BASIC METABOLIC PANELon Anion gap [Moles/Vol] 10 mmol/L Normal 7-20 [facility] Comment on above: Performed By: #### L [id number] ####[facility] (BEAKER)[address] [place] [address] Calcium [Mass/Vol] 8.9 mg/dL Normal 8.6-10.3 [facility] Comment on above: Performed By: #### L [id number] ####[facility] (BEAKER)[address] [place] [address] Chloride [Moles/Vol] 103 mmol/L Normal 98-107 [facility] Comment on above: Performed By: #### L [id number] ####[facility] (BEAKER)[address] [place] [address] CO2 [Moles/Vol] 26 mmol/L Normal 21-31 [facility] Comment on above: Performed By: #### L [id number] ####[facility] (BEAKER)[address] [place] [address] Creatinine [Mass/Vol] 0.64 mg/dL Normal 0.60-1.20 [facility] Comment on above: Performed By: #### L [id number] ####[facility] ([facility])[address] [place] [address] GLOMERULAR FILTRATION RATE ML/MIN/1.73 SQ M.PREDICTED 91.0 mL/min/1.73m*2 Normal >60.[address] [facility] Comment on above: Result Comment: [facility]???s estimated glomerular filtration rate (eGFR) [...] of individuals. Performed By: #### L [id number] ####[facility] ([facility])[address] [place] [address] Glucose [Mass/Vol] 92 mg/dL Normal 70-100 [facility] Comment on above: Performed By: #### L [id number] ####[facility] ([facility])[address] [place] [address] Potassium [Moles/Vol] 4.1 mmol/L Normal 3.5-5.1 [facility] Comment on above: Performed By: #### L [id number] ####[facility] ([facility])[address] [place] [address] Sodium [Moles/Vol] 135 mmol/L Low 136-145 [facility] Comment on above: Performed By: #### L [id number] ####[facility] ([facility])[address] [facility] [facility] [place] [address] Urea nitrogen [Mass/Vol] 17 mg/dL Normal 7-25 [facility] Comment on above: Performed By: #### L [id number] ####[facility] ([facility])[address] [place] [address] UREA NITROGEN/CREATININE (MASS RATIO) IN SER/PLAS 26.6 Normal [facility] Comment on above: Performed By: #### L [id number] ####[facility] ([facility])[address] [place] [address] C-REACTIVE PROTEINon 025 C REACTIVE PROTEIN (MG/L) IN SER/PLAS 6.8 mg/L High <=5.0 [facility] Comment on above: Result Comment: Test ing performed using a new methodology, turbidimetry. Normal ranges have been updated. Old normal range was <8 mg/L. Performed By: #### L [id number] ####[facility] ([facility])[address] [place] [address] CBC WITH AUTO DIFFERENTIALon 01-17-2025 Basophils (Bld) [#/Vol] 0.07 10*3/uL Normal 0.00-0.20 [facility] Comment on above: Performed By: #### L [id number] #### [facility] ([facility]) [address] [place] [address] Basophils/100 WBC (Bld) 0.9 % Normal 0.0-1.0 [facility] Comment on above: Performed By: #### L [id number] #### [facility] ([facility]) [address] [place] [address] Eosinophils (Bld) [#/Vol] 0.16 10*3/uL Normal 0.00-0.50 [facility] Comment on above: Performed By: #### L [id number] #### [facility] ([facility]) [address] [place] [address] Eosinophils/100 WBC (Bld) 2.2 % Normal 0.0-6.0 [facility] Comment on above: Performed By: #### L [id number] #### [facility] ([facility]) [address] [place] [address] Erythrocyte distribution width (RBC) [Ratio] 18.4 % High 11.5-15.0 [facility] Comment on above: Performed By: #### L [id number] #### [facility] (BEAKER) [address] [place] [address] ERYTHROCYTE MEAN CORPUSCULAR HEMOGLOBIN CONCENTRATION (G/DL) BY AUTOMATED 29.6 g/dL Low 32.0-35.0 [facility] Comment on above: Performed By: #### L [id number] #### [facility] ([facility]) [address] [place] [address] Hematocrit (Bld) [Volume fraction] 33.1 % Low 36.0-45.0 [facility] Comment on above: Performed By: #### L [id number] #### [facility] [address] [place] [address] Hemoglobin (Bld) [Mass/Vol] 9.8 g/dL Low 12.0-15.0 [facility] Comment on above: Performed By: #### L [id number] #### [facility] ([facility]) [address] [place] [address] Immature granulocytes (Bld) [#/Vol] 0.02 10*3/uL Normal 0.00-0.20 [facility] Comment on above: Performed By: #### L [id number] #### [facility] ([facility]) [address] [place] [address] Immature granulocytes/100 WBC (Bld) 0.3 % Normal 0.0-1.0 [facility] Comment on above: Performed By: #### L [id number] #### [facility] ([facility]) [address] [place] [address] Lymphocytes (Bld) [#/Vol] 1.32 10*3/uL Normal 1.20-4.00 [facility] Comment on above: Performed By: #### L [id number] #### [facility] ([facility]) [address] [place] [address] Lymphocytes/100 WBC (Bld) 17.9 % Low 20.0-45.0 [facility] Comment on above: Performed By: #### L [id number] #### [facility] [address] [place] [address] MCH (RBC) [Entitic mass] 25.1 pg Low 27.0-33.0 [facility] Comment on above: Performed By: #### L [id number] #### [facility] ([facility]) [address] [place] [address] MCV (RBC) [Entitic vol] 84.7 fL Normal 82.0-98.0 [facility] Comment on above: Performed By: #### L [id number] #### [facility] ([facility]) [address] [place] [address] Monocytes (Bld) [#/Vol] 0.50 10*3/uL Normal 0.10-1.00 [facility] Comment on above: Performed By: #### L [id number] #### [facility] ([facility]) [address] [place] [address] Monocytes/100 WBC (Bld) 6.8 % Normal 5.0-12.0 [facility] Comment on above: Performed By: #### L [id number] #### [facility] ([facility]) [address] [place] [address] Neutrophils (Bld) [#/Vol] 5.32 10*3/uL Normal 1.60-7.60 [facility] Comment on above: Performed By: #### L [id number] #### [facility] [address] [place] [address] Neutrophils/100 WBC (Bld) 71.9 % Normal 40.0-72.0 [facility] Comment on above: Performed By: #### L [id number] #### [facility] [address] [place] [address] NRBC (PER 100 WBCS) BY AUTOMATED COUNT 0.0 % Normal 0 [facility] Comment on above: Performed By: #### L [id number] #### [facility] ([facility]) [address] [place] [address] PLATELETS (10*3/UL) IN BLOOD AUTOMATED COUNT 338 10*3/uL Normal 150-400 [facility] Comment on above: Performed By: #### L [id number] #### [facility] ([facility]) [address] [place] [address] RBC (Bld) [#/Vol] 3.91 10*6/uL Normal 3.80-5.00 [facility] Comment on above: Performed By: #### L [id number] #### [facility] ([facility]) [address] [place] [address] WBC (Bld) [#/Vol] 7.39 10*3/uL Normal 4.00-10.60 [facility] Comment on above: Performed By: #### L [id number] #### [facility] ([facility]) [address] [place] [address] Office Visiton 01-17-2025 Follow-up visit [id number] Oliver Starks 1945 F Date Provider Department Center 01/17/2025 JAIR [facility]OLAND [facility] INF Carol Ann Heal Family History Adopted: Yes Family history unknown: Yes Family Status - Relation Status Age at Mother Father Level of Service:59647 [place] OFFICE/OUTPATIENT NEW HIGH MDM 60 MINUTES Reason for Visit and Comments: New Patient [632] [facility] Orders Onlyon 01-17-2025 Orders Only [id number] Oliver Starks 1945 F Date Provider Department Center 01/17/2025 MEHREEN BRAY [facility] DERM Carol Ann Heal Family History Adopted: Yes Family history unknown: Yes Family Status - Relation Status Age at Mother Father [facility] 36on 01-07-2025 38 Advised patient to take 25mg of spirolactone. Patient advised she has 50mg tablet and will cut them in 1/2 until they are gone, then she will call for a new script. [facility] Telephoneon 01-04-2025 Telephone [id number] Oliver Starks 1945 F Date Provider Department Center 01/04/2025 [id number] HARRY Family History Adopted: Yes Family history unknown: Yes Family Status - Relation Status Age at Mother Father Normal [facility] US axillaon 01-03-2025 US axilla [facility] [place] [address] [place] [address] Ultrasound Report Signed Patient: Breann Starks MR#: [id number] 171 : 1945 Acct:[id number] Age/Sex: 79 / F ADM Date: 01/03/25 Loc: Room: Type: [facility]CR Attending Dr: Katharina Toledo APRN Ordering [...] Dimitrios Blanco M.D.01/03/2025 3:42 PM Dictation Location: [facility] Tech: Ghazal Wilson Transcribed By: STAR 01/03/25 154 Dictated By: Dimitrios Blanco MD 01/03/25 153 Signed By: 01/03/25 1542 [facility] Follow-Upon 01-01-2025 Follow-Up [id number] Oliver Starks da T 1945 F Date Provider Department Center 01/01/2025 DEREK NEUMANN ORTHO MPORTHO Family History Adopted: Yes Family history unknown: Yes Family Status - Relation Status Age at Mother Father Level of Service:68435 [place] OFFICE/OUTPATIENT ESTABLISHED LOW MDM 20 MIN (GC) Reason for Visit and Comments: Follow-up [441052] Pain [136] Normal [facility] Office Visiton 12-24-2024 Follow-up visit [id number] Oliver Starks T 1945 F Date Provider Department Center 12/24/2024 KOLTON YAP AMISH Lubin Family History Adopted: Yes Family history unknown: Yes Family Status - Relation Status Age at Mother Father Level of Service:69040 [place] OFFICE/OUTPATIENT ESTABLISHED MOD MDM 30 MIN Reason for Visit and Comments: Coronary Artery Disease [187] Hypertension [164275] Congestive Heart Failure [127] Hyperlipidemia [182] 3 month follow up [Other] [facility] ALL BASIC METABOLIC PANELon 12-21-2024 Anion gap [Moles/Vol] 11.7 mmol/L [facility] Calcium [Mass/Vol] 9.1 mg/dL 8.5 - 10. 1 mg/dL [facility] Chloride [Moles/Vol] 100 mmol/L 98 - 10 7 mmol/L [facility] CO2 [Moles/Vol] 27.4 mmol/L 21.0 - 32.0 mmol/L [facility] Creatinine [Mass/Vol] 0.98 mg/dL 0.55 - 1.02 mg/dL [facility] GFR/1.73 sq M.predicted CKD-EPI (S/P/Bld) [Vol rate/Area] >60 >=60 mL/min/1.73m 2 [facility] Glucose [Mass/Vol] 114 mg/dL High 74 - 106 mg/dL [facility] Interpretation and review of laboratory results Abnormal [facility] Potassium [Moles/Vol] 4.1 mmol/L 3.5 - 5.1 mmol/L [facility] Sodium [Moles/Vol] 135 mmol/L Low 136 - 145 mmol/L [facility] TBH EGFR-NON AF CAMEROONIAN 55 Low >=60 mL/min/1.73m 2 [facility] Urea nitrogen [Mass/Vol] 22 mg/dL High 7.0 - 18.0 mg/dL [facility] Urea nitrogen/Creatinine [Mass ratio] 22.4 mg/mg [facility] C-REACTIVE PROTEINon 025 C REACTIVE PROTEIN (MG/L) IN SER/PLAS 9.6 mg/L High <=5.0 [facility] Comment on above: Result Comment: Test ing performed using a new methodology, turbidimetry. Normal ranges have been updated. Old normal range was <8 mg/L. Performed By: #### L [id number] ####[facility] ([facility])[address] [place] [address] CBC WITH AUTO DIFFERENTIALon 11-27-2024 Basophils (Bld) [#/Vol] 0.07 10*3/uL Normal 0.00-0.20 [facility] Comment on above: Performed By: #### L [id number] #### [facility] ([facility]) [address] [place] [address] Basophils/100 WBC (Bld) 0.7 % Normal 0.0-1.0 [facility] Comment on above: Performed By: #### L [id number] #### [facility] (BEAKER) [address] [place] [address] Eosinophils (Bld) [#/Vol] 0.13 10*3/uL Normal 0.00-0.50 [facility] Comment on above: Performed By: #### L [id number] #### [facility] ([facility]AKER) [address] [place] [address] Eosinophils/100 WBC (Bld) 1.2 % Normal 0.0-6.0 [facility] Comment on above: Performed By: #### L [id number] #### [facility] ([facility]) [address] [place] [address] Erythrocyte distribution width (RBC) [Ratio] 17.0 % High 11.5-15.0 [facility] Comment on above: Performed By: #### L [id number] #### [facility] ([facility]) [address] [place] [address] ERYTHROCYTE MEAN CORPUSCULAR HEMOGLOBIN CONCENTRATION (G/DL) BY AUTOMATED 30.8 g/dL Low 32.0-35.0 [facility] Comment on above: Performed By: #### L [id number] #### [facility] ([facility]) [address] [place] [address] Hematocrit (Bld) [Volume fraction] 38.6 % Normal 36.0-45.0 [facility] Comment on above: Performed By: #### L [id number] #### [facility] ([facility]) [address] [place] [address] Hemoglobin (Bld) [Mass/Vol] 11.9 g/dL Low 12.0-15.0 [facility] Comment on above: Performed By: #### L [id number] #### [facility] ([facility]) [address] [place] [address] Immature granulocytes (Bld) [#/Vol] 0.15 10*3/uL Normal 0.00-0.20 [facility] Comment on above: Performed By: #### L [id number] #### [facility] ([facility]) [address] [address] Immature granulocytes/100 WBC (Bld) 1.4 % High 0.0-1.0 [facility] Comment on above: Performed By: #### L [id number] #### [facility] ([facility]) [address] [place] [address] Lymphocytes (Bld) [#/Vol] 2.18 10*3/uL Normal 1.20-4.00 [facility] Comment on above: Performed By: #### L [id number] #### [facility] (BEAKER) [address] [place] [address] Lymphocytes/100 WBC (Bld) 20.4 % Normal 20.0-45.0 [facility] Comment on above: Performed By: #### L [id number] #### [facility] ([facility]AKER) [address] [place] [address] MCH (RBC) [Entitic mass] 26.0 pg Low 27.0-33.0 [facility] Comment on above: Performed By: #### L [id number] #### [facility] ([facility]) [address] [place] [address] MCV (RBC) [Entitic vol] 84.5 fL Normal 82.0-98.0 [facility] Comment on above: Performed By: #### L [id number] #### [facility] ([facility]) [address] [place] [address] Monocytes (Bld) [#/Vol] 0.84 10*3/uL Normal 0.10-1.00 [facility] Comment on above: Performed By: #### L [id number] #### [facility] ([facility]AKER) [address] [place] [address] Monocytes/100 WBC (Bld) 7.9 % Normal 5.0-12.0 [facility] Comment on above: Performed By: #### L [id number] #### [facility] ([facility]ER) [address] [place] [address] Neutrophils (Bld) [#/Vol] 7.33 10*3/uL Normal 1.60-7.60 [facility] Comment on above: Performed By: #### L [id number] #### [facility] ([facility]ER) [address] [place] [address] Neutrophils/100 WBC (Bld) 68.4 % Normal 40.0-72.0 [facility] Comment on above: Performed By: #### L [id number] #### [facility] ([facility]AKER) [address] [place] [address] NRBC (PER 100 WBCS) BY AUTOMATED COUNT 0.0 % Normal 0 [facility] Comment on above: Performed By: #### L [id number] #### [facility] [address] [place] [address] PLATELETS (10*3/UL) IN BLOOD AUTOMATED COUNT 411 10*3/uL High 150-400 [facility] Comment on above: Performed By: #### L [id number] #### [facility] [address] [place] [address] RBC (Bld) [#/Vol] 4.57 10*6/uL Normal 3.80-5.00 [facility] Comment on above: Performed By: #### L [id number] #### [facility] [address] [place] [address] WBC (Bld) [#/Vol] 10.70 10*3/uL High 4.00-10.60 [facility] Comment on above: Performed By: #### L [id number] #### [facility] ([facility]) [address] [place] [address] Follow-Upon 11-27-2024 Follow-Up [id number] Oliver Starks T 1945 F Date Provider Department Center 11/27/2024 438DEREK SALGADO MP ORTHO MPORTHO Family History Adopted: Yes Family history unknown: Yes Family Status - Relation Status Age at Mother Father Level of Service:47506 [place] OFFICE/OUTPATIENT ESTABLISHED LOW MDM 20 MIN Reason for Visit and Comments: Follow-up [452866] Normal [facility] Labon 11-27-2024 Lab [id number] Oliver Starks da T 1945 F Date Provider Department Center 11/27/2024 2244-[facility] MP LAB RESOURCE MP DRAW Medical Pavi Family History Adopted: Yes Family history unknown: Yes Family Status - Relation Status Age at Mother Father Normal [facility] SEDIMENTATION RATEon 025 SEDIMENTATION RATE, ERYTHROCYTE 96 mm/hr High <30 [facility] Comment on above: Performed By: #### L [id number] #### [facility] ([facility]) [address] [place] [address] Orders Onlyon 11-19-2024 Orders Only [id number] Oliver Starks da T 1945 F Date Provider Department Center 11/19/2024 JAMES RODRIGUEZ MP ORTHO MPORTHO Family History Adopted: Yes Family history unknown: Yes Family Status - Relation Status Age at Mother Father [facility] Orders Onlyon 11-16-2024 Orders Only [id number] Oliver Starks da T 1945 F Date Provider Department Center 11/16/2024 [id number]-ARRICUXEZKQKIVAN COHEN ORTHO MPORTHO Family History Adopted: Yes Family history unknown: Yes Family Status - Relation Status Age at Mother Father [facility] 36on 11-15-2024 36 Patient was informed and she is going to [address] Carlos d and states they do not have a radiologist to do the aspiration for the order sent over by Dr. Holt and patient will have to go somewhere else. Normal [facility] BODY FLUID CULTUREon 025 Bacteria identified Cx Nom (Unsp spec) STREPTOCOCCUS SANGUINIS Abnormal [facility] Comment on above: Result Comment: Isol ated from Broth Culture Streptococcus sanguinis Presumptive Identification Performed By: #### L [id number] ####[facility] ([facility] [place] [address] GRAM STAIN RESULT Normal [facility] Comment on above: Result Comment: Many Polymorphonuclear leukocytes No organisms seen Performed By: #### L AB269 ####[facility] ([facility])[address] [place] [address] Office Visiton 11-13-2024 Follow-up visit [id number] Oliver Starks da T 1945 F Date Provider Department Center 11/13/2024 Kyle-DEREK HOLT MP ORTHO MPORTHO Family History Adopted: Yes Family history unknown: Yes Family Status - Relation Status Age at Mother Father Level of Service:[address]23 [place] OFFICE/OUTPATIENT NEW LOW MDM 30 MINUTES (25,GC) Reason for Visit and Comments: Pain [136] Normal [facility] Orders Onlyon 11-13-2024 Orders Only [id number] Oliver Starks 1945 F Date Provider Department Center 11/13/[id number]-FYPGUOUVTMARIELOS MARY MP ORTHO MPORTHO Family History Adopted: Yes Family history unknown: Yes Family Status - Relation Status Age at Mother Father Normal [facility] 36on 11-08-2024 36 Patient was schedule Normal [facility] 36 Patient needs an elisabet t layla poss infection per dr cardenas. 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 Normal [facility] Anisocytosis LM Ql (Bld)Orde red By: Sakina Cardenas on 10-24-2024 Anisocytosis Ql (Bld) Anisocytosis [Presence] in Blood by Light microscopy [facility] Basophils Auto (Bld) [#/Vol] Ordered By: Sakina Cardenas on 10-24-2024 Basophils (Bld) [#/Vol] Automated basophil count [facility] Basophils/100 WBC Auto (Bld) Ordered By: Sakina Cardenas on 10-24-2024 Basophils/100 WBC (Bld) Automated basophil % [facility] Basophils/100 WBC Manual cnt (Bld)Ordered By: Sakina Cardenas on 10-24-2024 Basophils/100 WBC (Bld) Basophils/100 leukocytes in Blood by Manual count 0-2 [facility] C reactive protein [Mass/vol ume] in Serum or PlasmaOrdered By: Sakina Cardenas on 10-24-2024 CRP [Mass/Vol] C reactive protein [Mass/volume] in Serum or Plasma High 0.0-0.5 [facility] C-Reactive Proteinon 025 C-Reactive Protein 1.4 mg/dL High 0.0-0.5 [facility] Comment on above: Result Comment: PERF ORMED BY: [facility] [address] [place] [address] PATHOLOGIST LABELER KATHLEEN RAMOS M.D. Performed By: #### C RP ####[address] [address] [facility] CRP [Mass/Vol]on 10-24-2024 C-REACTIVE PROTEIN 1.4 mg/dL High 0.0 - 0.5 mg/dL [facility] Interpretation and review of laboratory results Abnormal [facility] Diff and CBCon 10-24-2024 Anisocytosis Ql (Bld) Slight Normal [facility] Comment on above: Performed By: #### D IFF CBC, ESR ####[address] [address] [facility] Basophils/100 WBC (Bld) 2 % Normal 0-2 [facility] Comment on above: Performed By: #### D IFF CBC, ESR ####[place] [id number] [facility] Erythrocyte distribution width (RBC) [Ratio] 23.9 % High 11.9-15.3 [facility] Comment on above: Performed By: #### D IFF CBC, ESR ####[place] [id number] [facility] Giant Platelet Tally 1 /100{WBC} Normal [facility] Comment on above: Performed By: #### D IFF CBC, ESR ####[place] [id number] [place] [address] [facility] Hematocrit (Bld) [Volume fraction] 35.1 % Normal 34.0-46.4 [facility] Comment on above: Performed By: #### D IFF CBC, ESR ####[address] [address] [facility] Hemoglobin (Bld) [Mass/Vol] 11.4 g/dL Low 11.8-15.4 [facility] Comment on above: Performed By: #### D IFF CBC, ESR ####[address] [address] [facility] Hypochromasia Slight Normal [facility] Comment on above: Performed By: #### D IFF CBC, ESR ####[address] [place] [address] [place] Lymphocytes/100 WBC (Bld) 19 % Normal 18-42 [facility] Comment on above: Performed By: #### D IFF CBC, ESR ####[address] MCH (RBC) [Entitic mass] 26.9 pg Normal 24.7-34.3 [facility] Comment on above: Performed By: #### D IFF CBC, ESR ####[address] MCV (RBC) [Entitic vol] 83.2 fL Normal 80-100 [facility] Comment on above: Performed By: #### D IFF CBC, ESR ####[address] Mean Corpuscular HGB Conc 32.4 g/dL Normal 32.0-35.0 [facility] Comment on above: Performed By: #### D IFF CBC, ESR ####[address] Monocytes/100 WBC (Bld) 6 % Normal 2-11 [facility] Comment on above: Performed By: #### D IFF CBC, ESR ####[place] [id number] [facility] Platelet Estimate Normal Normal Normal [facility] Comment on above: Performed By: #### D IFF CBC, ESR ####[place] [id number] [facility] Platelet mean volume (Bld) [Entitic vol] 7.0 fL Normal 6.3-10.7 [facility] Comment on above: Performed By: #### D IFF CBC, ESR ####[place] [id number] [facility] Platelet Morphology Normal Normal Normal [facility] Comment on above: Performed By: #### D IFF CBC, ESR ####[place] [id number] [facility] Platelets (Bld) [#/Vol] 403 10*3/uL Normal 150-450 [facility] Comment on above: Performed By: #### D IFF CBC, ESR ####[place] [id number] [place] [id number] [facility] Polychromasia Moderate Normal [facility] Comment on above: Performed By: #### D IFF CBC, ESR ####[place] [id number] [place] [id number] [facility] RBC (Bld) [#/Vol] 4.21 10*6/uL Normal 3.60-5.00 [facility] Comment on above: Performed By: #### D IFF CBC, ESR ####[place] [id number] [place] [id number] [facility] RBC morphology finding Nom (Bld) Normal Normal Normal [facility] Comment on above: Performed By: #### D IFF CBC, ESR ####[place] [id number] Segmented neutrophils/100 WBC (Bld) 73 % High 50-70 [facility] Comment on above: Performed By: #### D IFF CBC, ESR ####[place] [id number] [place] [id number] [facility] WBC (Bld) [#/Vol] 11.0 10*3/uL Normal 3.8-11.6 [facility] Comment on above: Performed By: #### D IFF CBC, ESR ####[place] [id number] [facility] Eosinophils Auto (Bld) [#/Vo l]Ordered By: Sakina Cardenas on 10-24-2024 Eosinophils (Bld) [#/Vol] Automated eosinophil count [facility] Eosinophils/100 WBC Auto (Bl d)Ordered By: Sakina Cardenas on 10-24-2024 Eosinophils/100 WBC (Bld) Automated eosinophil % [facility] Erythrocyte Sedimentation Ra aren 10-24-2024 ESR (Bld) [Velocity] 104 mm/h High 0-29 [facility] Comment on above: Result Comment: PERF ORMED BY: [facility] [address] [place] [id number] PATHOLOGIST LABELER KATHLEEN RAMOS M.D. Performed By: #### D IFF CBC, ESR ####[facility] [id number] [place] [address] [facility] Erythrocyte distribution wid th Auto (RBC) [Ratio]Ordered By: Sakina Cardenas on 10-24-2024 Erythrocyte distribution width (RBC) [Ratio] Erythrocyte distribution width [Ratio] by Automated count High 11.9-15.3 [facility] Erythrocyte morphology findi ng [Identifier] in BloodOrdered By: Sakina Cardenas on 10-24-2024 RBC morphology finding Nom (Bld) RBC morphology Normal [facility] Erythrocyte sedimentation ra te by Photometric methodOrdered By: Sakina Cardenas on 10-24-2024 ESR Photometric method (Bld) [Velocity] Erythrocyte sedimentation rate by Photometric method High 0-29 [facility] Giant platelets/100 leukocyt es [Ratio] in Blood by Manual countOrdered By: Sakina Cardenas on 10-24-2024 Giant platelets/100 WBC Manual cnt (Bld) [Ratio] Giant platelets/100 leukocytes [Ratio] in Blood by Manual count [facility] Hematocrit Auto (Bld) [Volum e fraction]Ordered By: aSkina Cardenas on 10-24-2024 Hematocrit (Bld) [Volume fraction] Hematocrit [Volume Fraction] of Blood by Automated count 34.0-46.4 [facility] Hemoglobin [Mass/volume] in BloodOrdered By: Sakina Cardenas on 10-24-2024 Hemoglobin (Bld) [Mass/Vol] Hemoglobin [Mass/volume] in Blood Low 11.8-15.4 [facility] Hypochromia LM Ql (Bld)Order ed By: Sakina Cardenas on 10-24-2024 Hypochromia Ql (Bld) Hypochromia [Presen ce] in Blood by Light microscopy [facility] Laboratory - Hematology and Cell countson 10-24-2024 [...] erythrocytes in Blood by Automated coun 3.8-11.6 [facility] Lymphocytes Auto (Bld) [#/Vo l]Ordered By: Sakina Cardenas on 10-24-2024 Lymphocytes (Bld) [#/Vol] Lymphocytes [#/volume] in Blood by Automated count [facility] Lymphocytes/100 WBC Auto (Bl d)Ordered By: Sakina Cardenas on 10-24-2024 Lymphocytes/100 WBC (Bld) Lymphocytes/100 leukocytes in Blood by Automated count [facility] Lymphocytes/100 WBC Manual c nt (Bld)Ordered By: Sakina Cardenas on 10-24-2024 Lymphocytes/100 WBC (Bld) Lymphocytes/100 leukocytes in Blood by Manual count 18-42 [facility] MCH Auto (RBC) [Entitic mass ]Ordered By: Sakina Cardenas on 10-24-2024 MCH (RBC) [Entitic mass] MCH [Entitic mass] by Automated count 24.7-34.3 [facility] MCHC Auto (RBC) [Mass/Vol]Or dered By: Sakina Cardenas on 10-24-2024 MCHC (RBC) [Mass/Vol] MCHC [Mass/volume] by Automated count 32.0-35.0 [facility] MCV Auto (RBC) [Entitic vol] Ordered By: Sakina Cardenas on 10-24-2024 MCV (RBC) [Entitic vol] MCV [Entitic volume] by Automated count 80-100 [facility] Monocytes Auto (Bld) [#/Vol] Ordered By: Sakina Cardenas on 10-24-2024 Monocytes (Bld) [#/Vol] Automated blood monocyte count [facility] Monocytes/100 WBC Auto (Bld) Ordered By: Sakina Cardenas on 10-24-2024 Monocytes/100 WBC (Bld) Automated monocyte % [facility] Monocytes/100 WBC Manual cnt (Bld)Ordered By: Sakina Cardenas on 10-24-2024 Monocytes/100 WBC (Bld) Monocytes/100 leukocytes in Blood by Manual count 2-11 [facility] Neutrophils Auto (Bld) [#/Vo l]Ordered By: Sakina Cardenas on 10-24-2024 Neutrophils (Bld) [#/Vol] Neutrophils [#/volume] in Blood by Automated count [facility] Neutrophils/100 WBC Auto (Bl d)Ordered By: Sakina Cardenas on 10-24-2024 Neutrophils/100 WBC (Bld) Automated neutrophil % [facility] No Panel Informationon 10-24 Interpretation and review of laboratory results Abnormal [facility] Nucleated erythrocytes [Pres ence] in Blood by Automated countOrdered By: Sakina Cardenas on 10-24-2024 Nucleated RBC Auto Ql (Bld) Nucleated erythrocytes [Presence] in Blood by Automated count [facility] Platelet adequacy [Presence] in Blood by Light microscopyOrdered By: Sakina Cardenas on 10-24-2024 Platelets LM Ql (Bld) Platelet adequacy [Presence] in Blood by Light microscopy Normal [facility] Platelet mean volume Auto (B ld) [Entitic vol]Ordered By: Sakina Cardenas on 10-24-2024 Platelet mean volume (Bld) [Entitic vol] Platelet mean volume [Entitic volume] in Blood by Automated count 6.3-10.7 [facility] Platelet morphology finding [Identifier] in BloodOrdered By: Sakina Cardenas on 10-24-2024 Platelet morphology finding Nom (Bld) Platelet morphology finding [Identifier] in Blood Normal [facility] Platelets Auto (Bld) [#/Vol] Ordered By: Sakina Cardenas on 10-24-2024 Platelets (Bld) [#/Vol] Platelets [#/volume] in Blood by Automated count 150-450 [facility] Polychromasia [Presence] in Blood by Light microscopyOrdered By: Sakina Cardensa on 10-24-2024 Polychromasia LM Ql (Bld) Polychromasia [Presence] in Blood by Light microscopy [facility] RBC Auto (Bld) [#/Vol]Ordere d By: Sakina Cardenas on 10-24-2024 RBC (Bld) [#/Vol] Erythrocytes [#/volume] in Blood by Automated count 3.60-5.00 [facility] Segmented neutrophils/100 WB C Manual cnt (Bld)Ordered By: Sakina Cardenas on 10-24-2024 Segmented neutrophils/100 WBC (Bld) Manual blood segmented neutrophils/100 leukocytes High 50-70 [facility] WBC Auto (Bld) [#/Vol]Ordere d By: Sakina Cardenas on 10-24-2024 WBC (Bld) [#/Vol] Leukocytes [#/volume ] in Blood by Automated count 3.8-11.6 [facility] MM diagnostic mammo BI w/CAD on 10-16-2024 MM diagnostic mammo BI w/CAD [facility] [place] [address] Ultrasound Report Signed Patient: Brenan Starks MR#: [id number] : 1945 Acct:[id number] Age/Sex: 78 / F ADM Date: 10/16/24 Loc: [facility] Room: Type: [facility] Attending Dr: Dmitriy Duque DO Ordering Provider: Dmitriy Duque DO Date of Service: 10/16/24 US/US axilla: R92.8 ([id number]) MM/MM diagnostic mammo BI w/CAD: ENLARGED LT [...] Benton Jr. D.OMeena10/16/2024 2:20 PM Dictation Location: [facility] Tech: Ghazal Barber Transcribed By: STAR 10/16/24 1420 Dictated By: Francisco J Benton Jr, 10/16/24 1343 Signed By: 10/16/24 1420 Normal [facility] 36on 10-11-2024 36 Regarding labs [...] BMP in 1 week. 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 She verbalized understanding. Normal [facility] CA ECHO DOPPLER COMPLETEon 0 10-09-2024 [place] [address] Cardiology Report Signed Patient: BREANN STARKS MR#: [id number] : 1945 Acct:[id number] Age/Sex: 78 / F ADM Date: 10/09/24 Loc: CARD Attending Dr: Kolton Altman M.D. Ordering Physician: Kolton Altman M.D. Date of Service: 10/09/24 Procedure(s): CA echo doppler complete Accession Number(s): [id number] cc: RENNY HANSEN ; Kolton Altman M.D. Patient Name: BREANN STARKS MR#: [id number] : 1945 Exam Date: 10/09/2024 Ordering Doctor: [...] Area (VTI): 1.49 cm2, 1.49 cm2 Deceleration [place]: 1.68 m/s2 Pressure Half-Time: 622.32 ms Peak [...] by: Sakina Evans (more content not included)... [facility] Radiology, Radiologist, MD - 10/09/2024 [place] [address] Cardiology Report Signed Patient: BREANN STARKS MR#: [id number] : 1945 Acct:[id number] Age/Sex: 78 / F ADM Date: 10/09/24 Loc: CARD Attending Dr: Kolton Altman M.D. Ordering Physician: Kolton Altman M.D. Date of Service: 10/09/24 Procedure(s): CA echo doppler complete Accession Number(s): [id number] cc: RENNY HANSEN ; Kolton Altman M.D. Patient Name: BREANN STARKS MR#: [id number] : 1945 Exam Date: 10/09/2024 Ordering Doctor: [...] Area (VTI): 1.49 cm2, 1.49 cm2 Deceleration [place]: 1.68 m/s2 Pressure Half-Time: 622.32 ms Peak [...] SALAZAR Signed By: 10/09/241846 DD/ 44 TD/TT: Director [place] [employer]: [facility] Radiology Study observation (narrative) [facility] CA ECHO DOPPLER COMPLETEOrde red By: Radiologist Radiology on 10-09-2024 [facility] Work Phone: ALL BASIC METABOLIC PANELon 10-03-2024 Anion gap [Moles/Vol] 12.4 mmol/L NO [facility] Calcium [Mass/Vol] 9.2 mg/dL 8.5 - 10. [...] [facility] TBH EGFR-NON AF CAMEROONIAN >60 >=60 mL/min/1.73m 2 [facility] [...] Anisocytosis [Presence] in Blood by Light microscopy [facility] Basophils Auto (Bld) [#/Vol] Ordered By: Katharina Toledo on 10-02-2024 Basophils (Bld) [#/Vol] Automated basophil count 0.0-0.2 [facility] Basophils/100 WBC Auto (Bld) Ordered By: Katharina Toledo on 10-02-2024 Basophils/100 WBC (Bld) Automated basophil % . [facility] CT shoulder LT w conon 10-02 CT shoulder LT w con [facility] [place] [address] CT Scan Report Signed Patient: Breann Starks MR#: [id number] : 1945 Acct:[id number] Age/Sex: 78 / F ADM Date: 10/02/24 Loc: Room: Type: [facility] Attending Dr: Katharina Toledo APRN Copies to: [...] Etienne Rhodes M.D.10/02/2024 4:14 PM Dictation Location: [place] [address] Transcribed By: [facility] 10/02/24 1614 Dictated By: Etienne Rhodes DO 10/02/24 161 Signed By: 10/02/24 1614 Normal [facility] Creatinine (Bld) [Mass/Vol]O rdered By: Katharina Tre on 10-02-2024 Creatinine [Mass/Vol] Whole blood creati nine measurement 0.6-1.3 [facility] Comment on above: ER/ESD physician is notified/shown all ISTAT results.Critical values may be confirmed by laboratory testing ifdeemed necessary by ER attending doctor. Eosinophils Auto (Bld) [#/Vo l]Ordered By: Katharina Toledo on 10-02-2024 Eosinophils (Bld) [#/Vol] Automated eosinophil count 0.0-0.45 [facility] Eosinophils/100 WBC Auto (Bl d)Ordered By: Katharina Tre on 10-02-2024 Eosinophils/100 WBC (Bld) Automated eosinophil % . [facility] Erythrocyte distribution wid th Auto (RBC) [Ratio]Ordered By: Katharina Toledo on 10-02-2024 Erythrocyte distribution width (RBC) [Ratio] Erythrocyte distribution width [Ratio] by Automated count High 11.9-15.3 [facility] Erythrocyte morphology findi ng [Identifier] in BloodOrdered By: Katharina Toledo on 10-02-2024 RBC morphology finding Nom (Bld) RBC morphology [facility] Ferritinon 10-02-2024 Ferritin [Mass/Vol] 54.8 ng/mL Normal 11.0-306.8 [facility] Comment on above: Result Comment: PERF ORMED BY: [facility] [address] [place] [address] PATHOLOGIST LABELER KATHLEEN RAMOS M.D. Performed By: #### S CAN CBC, FE and TIBC, ARISTIDES ####[facility] [id number] [place] [address] [facility] Ferritin [Mass/volume] in Se rum or PlasmaOrdered By: Katharina Toledo on 10-02-2024 Ferritin [Mass/Vol] Ferritin [Mass/volum e] in Serum or Plasma 11.0-306.8 [facility] Hematocrit Auto (Bld) [Volum e fraction]Ordered By: Katharina Toledo on 10-02-2024 Hematocrit (Bld) [Volume fraction] Hematocrit [Volume Fraction] of Blood by Automated count Low 34.0-46.4 [facility] Hemoglobin [Mass/volume] in BloodOrdered By: Katharina Tre on 10-02-2024 Hemoglobin (Bld) [Mass/Vol] Hemoglobin [Mass/volume] in Blood Low 11.8-15.4 [facility] Hypochromia LM Ql (Bld)Order ed By: Katharina Tre on 10-02-2024 Hypochromia Ql (Bld) Hypochromia [Presen ce] in Blood by Light microscopy [facility] ISTAT XRAY CREon 10-02-2024 Creatinine [Mass/Vol] 0.7 mg/dL 0.6 - 1.3 mg/dL [facility] Comment on above: ER/ESD physician is notified/shown all ISTAT results. Critical values may be confirmed by laboratory testing if deemed necessary by ER attending doctor. ISTAT GFR [facility] ISTAT XRay CREon 10-02-2024 Creatinine [Mass/Vol] 0.7 mg/dL Normal 0.6-1.3 [facility] Comment on above: Result Comment: ER/E SD physician is notified/shown all ISTAT results. Critical values may be confirmed by laboratory testing if deemed necessary by ER attending doctor. Performed By: #### I SCRE ####[place] [id number] [place] [id number] [facility] ISTAT GFR >60.0 Normal [facility] Comment on above: Result Comment: PERF ORMED BY: [facility] [address] [place] [address] PATHOLOGIST LABELER KATHLEEN RAMOS M.D. Performed By: #### I SCRE ####[place] [id number] [place] [id number] [facility] Iron [Mass/volume] in Serum or PlasmaOrdered By: Katharina Toledo on 10-02-2024 Iron [Mass/Vol] Iron [Mass/volume] i n Serum or Plasma Low 50-212 [facility] Iron and TIBC Profileon 09-13 % Iron Saturation 8.7 % Low 20-50 [facility] Comment on above: Performed By: #### S CAN CBC, FE and TIBC, ARISTIDES ####[facility] [id number] [place] [address] [facility] Iron [Mass/Vol] 36 ug/dL Low 50-212 [facility] Comment on above: Performed By: #### S CAN CBC, FE and TIBC, ARISTIDES ####[facility] [id number] [place] [address] [facility] Total Iron Binding Capacity 413 ug/dL Normal 255-450 [facility] Comment on above: Performed By: #### S CAN CBC, FE and TIBC, ARISTIDES ####[facility] [id number] [place] [address] [facility] Transferrin [Mass/Vol] 295 mg/dL Normal 203-362 [facility] Comment on above: Performed By: #### S CAN CBC, FE and TIBC, ARISTIDES ####[facility] [id number] [place] [address] [facility] Leukocytes [#/volume] correc aristeo for nucleated erythrocytes in Blood by Automated counOrdered By: Katharina Toledo on 10-02-2024 WBC corrected for nucl RBC Auto (Bld) [#/Vol] Leukocytes [#/volume] corrected for nucleated erythrocytes in Blood by Automated coun 3.8-11.6 [facility] Lymphocytes Auto (Bld) [#/Vo l]Ordered By: Katharina Toledo on 10-02-2024 Lymphocytes (Bld) [#/Vol] Lymphocytes [#/volume] in Blood by Automated count 1.00-4.8 [facility] Lymphocytes/100 WBC Auto (Bl d)Ordered By: Katharina Toledo on 10-02-2024 Lymphocytes/100 WBC (Bld) Lymphocytes/100 leukocytes in Blood by Automated count . [facility] MCH Auto (RBC) [Entitic mass ]Ordered By: Katharina Toledo on 10-02-2024 MCH (RBC) [Entitic mass] MCH [Entitic mass] by Automated count 24.7-34.3 [facility] MCHC Auto (RBC) [Mass/Vol]Or dered By: Katharina Toledo on 10-02-2024 MCHC (RBC) [Mass/Vol] MCHC [Mass/volume] by Automated count 32.0-35.0 [facility] MCV Auto (RBC) [Entitic vol] Ordered By: Katharina Toledo on 10-02-2024 MCV (RBC) [Entitic vol] MCV [Entitic volume] by Automated count 80-100 [facility] [facility] LM Ql (Bld)Ordere d By: Katharina Toledo on 10-02-2024 Microcytes Ql (Bld) Microcytes [Presence ] in Blood by Light microscopy [facility] Monocytes Auto (Bld) [#/Vol] Ordered By: Katharina Toledo on 10-02-2024 Monocytes (Bld) [#/Vol] Automated blood monocyte count 0.0-0.8 [facility] Monocytes/100 WBC Auto (Bld) Ordered By: Katharina Toledo on 10-02-2024 Monocytes/100 WBC (Bld) Automated monocyte % . [facility] Neutrophils Auto (Bld) [#/Vo l]Ordered By: Katharina Toledo on 10-02-2024 Neutrophils (Bld) [#/Vol] Neutrophils [#/volume] in Blood by Automated count 1.8-7.7 [facility] Neutrophils/100 WBC Auto (Bl d)Ordered By: Katharina Toledo on 10-02-2024 Neutrophils/100 WBC (Bld) Automated neutrophil % . [facility] No Panel InformationOrdered By: Katharina Toledo on 10-02-2024 Bedside Estimated GFR (eGFR) > 60.0 [facility] Nucleated erythrocytes [Pres ence] in Blood by Automated countOrdered By: Katharina Toledo on 10-02-2024 Nucleated RBC Auto Ql (Bld) Nucleated erythrocytes [Presence] in Blood by Automated count 0-0.5 [facility] Platelet adequacy [Presence] in Blood by Light microscopyOrdered By: Katharina Toledo on 10-02-2024 Platelets LM Ql (Bld) Platelet adequacy [Presence] in Blood by Light microscopy Normal [facility] Platelet mean volume Auto (B ld) [Entitic vol]Ordered By: Katharina Toledo on 10-02-2024 Platelet mean volume (Bld) [Entitic vol] Platelet mean volume [Entitic volume] in Blood by Automated count 6.3-10.7 [facility] Platelet morphology finding [Identifier] in BloodOrdered By: Katharina Tre on 10-02-2024 Platelet morphology finding Nom (Bld) Platelet morphology finding [Identifier] in Blood Normal [facility] Platelets Auto (Bld) [#/Vol] Ordered By: Katharina Tre on 10-02-2024 Platelets (Bld) [#/Vol] Platelets [#/volume] in Blood by Automated count 150-450 [facility] Polychromasia [Presence] in Blood by Light microscopyOrdered By: Katharina Tre on 10-02-2024 Polychromasia LM Ql (Bld) Polychromasia [Presence] in Blood by Light microscopy [facility] RBC Auto (Bld) [#/Vol]Ordere d By: Katharina Ter on 10-02-2024 RBC (Bld) [#/Vol] Erythrocytes [#/volume] in Blood by Automated count 3.60-5.00 [facility] Scan and CBCon 10-02-2024 Anisocytosis Ql (Bld) Marked Normal [facility] Comment on above: Performed By: #### S CAN CBC, FE and TIBC, ARISTIDES ####[place] [id number] [place] [id number] [place] Basophils (Bld) [#/Vol] 0.1 10*3/uL Normal 0.0-0.2 [facility] Comment on above: Performed By: #### S CAN CBC, FE and TIBC, ARISTIDES ####[place] [id number] [place] Basophils/100 WBC (Bld) 0.8 % Normal . [facility] Comment on above: Performed By: #### S CAN CBC, FE and TIBC, ARISTIDES ####[facility] [place] [address] [place] Eosinophils (Bld) [#/Vol] 0.2 10*3/uL Normal 0.0-0.45 [facility] Comment on above: Performed By: #### S CAN CBC, FE and TIBC, ARISTIDES ####[place] [id number] [place] Eosinophils/100 WBC (Bld) 2.3 % Normal . [facility] Comment on above: Performed By: #### S CAN CBC, FE and TIBC, ARISTIDES ####[address] Erythrocyte distribution width (RBC) [Ratio] 29.3 % High 11.9-15.3 [facility] Comment on above: Performed By: #### S CAN CBC, FE and TIBC, ARISTIDES ####[address] Hematocrit (Bld) [Volume fraction] 33.0 % Low 34.0-46.4 [facility] Comment on above: Performed By: #### S CAN CBC, FE and TIBC, ARISTIDES ####[address] Hemoglobin (Bld) [Mass/Vol] 10.6 g/dL Low 11.8-15.4 [facility] Comment on above: Performed By: #### S CAN CBC, FE and TIBC, ARISTIDES ####[address] Hypochromasia Slight Normal [facility] Comment on above: Performed By: #### S CAN CBC, FE and TIBC, ARISTIDES ####[address] Lymphocytes (Bld) [#/Vol] 1.4 10*3/uL Normal 1.00-4.8 [facility] Comment on above: Performed By: #### S CAN CBC, FE and TIBC, ARISTIDES ####[address] Lymphocytes/100 WBC (Bld) 15.8 % Normal . [facility] Comment on above: Performed By: #### S CAN CBC, FE and TIBC, ARISTIDES ####[address] MCH (RBC) [Entitic mass] 26.6 pg Normal 24.7-34.3 [facility] Comment on above: Performed By: #### S CAN CBC, FE and TIBC, ARISTIDES ####[address] MCV (RBC) [Entitic vol] 83.1 fL Normal 80-100 [facility] Comment on above: Performed By: #### S CAN CBC, FE and TIBC, ARISTIDES ####[address] Mean Corpuscular HGB Conc 32.0 g/dL Normal 32.0-35.0 [facility] Comment on above: Performed By: #### S CAN CBC, FE and TIBC, ARISTIDES ####[address] Microcytosis Slight Normal [facility] Comment on above: Performed By: #### S CAN CBC, FE and TIBC, ARISTIDES ####[address] Monocytes (Bld) [#/Vol] 0.6 10*3/uL Normal 0.0-0.8 [facility] Comment on above: Performed By: #### S CAN CBC, FE and TIBC, ARISTIDES ####[address] Monocytes/100 WBC (Bld) 7.3 % Normal . [facility] Comment on above: Performed By: #### S CAN CBC, FE and TIBC, ARISTIDES ####[address] Neutrophils (Bld) [#/Vol] 6.4 10*3/uL Normal 1.8-7.7 [facility] Comment on above: Performed By: #### S CAN CBC, FE and TIBC, ARISTIDES ####[address] Neutrophils/100 WBC (Bld) 73.8 % Normal . [facility] Comment on above: Performed By: #### S CAN CBC, FE and TIBC, ARISTIDES ####[address] NRBC% 0.0 /100{WBC} Normal 0-0.5 [facility] Comment on above: Performed By: #### S CAN CBC, FE and TIBC, ARISTIDES ####[address] [address] [facility] Platelet Estimate Normal Normal Normal [facility] Comment on above: Performed By: #### S CAN CBC, FE and TIBC, ARISTIDES ####[address] [address] [facility] Platelet mean volume (Bld) [Entitic vol] 6.9 fL Normal 6.3-10.7 [facility] Comment on above: Performed By: #### S CAN CBC, FE and TIBC, ARISTIDES ####[address] [address] [facility] Platelet Morphology Normal Normal Normal [facility] Comment on above: Result Comment: PERF ORMED BY: [facility] [address] [facility] [place] [address] PATHOLOGIST LABELER KATHLEEN RAMOS M.D. Performed By: #### S CAN CBC, FE and TIBC, ARISTIDES ####[address] [address] [facility] Platelets (Bld) [#/Vol] 337 10*3/uL Normal 150-450 [facility] Comment on above: Performed By: #### S CAN CBC, FE and TIBC, ARISTIDES ####[address] [address] [facility] Polychromasia Slight Normal [facility] Comment on above: Performed By: #### S CAN CBC, FE and TIBC, ARISTIDES ####[address] [address] [facility] RBC (Bld) [#/Vol] 3.98 10*6/uL Normal 3.60-5.00 [facility] Comment on above: Performed By: #### S CAN CBC, FE and TIBC, ARISTIDES ####[address] [address] [facility] WBC (Bld) [#/Vol] 8.7 10*3/uL Normal 3.8-11.6 [facility] Comment on above: Performed By: #### S CAN CBC, FE and TIBC, ARISTIDES ####[facility] [address] [place] [address] [facility] Serum or plasma iron binding capacity measurement (mass/volume)Ordered By: Katharina Toledo on 10-02-2024 Iron binding capacity [Mass/Vol] Iron binding capacity [Mass/volume] in Serum or Plasma 255-450 [facility] Serum or plasma iron saturat ion measurement (mass fraction)Ordered By: Katharina Toledo on 10-02-2024 Iron saturation [Mass fraction] Iron saturation [Mass Fraction] in Serum or Plasma Low 20-50 [facility] Transferrin [Mass/volume] in Serum or PlasmaOrdered By: Katharina Toledo on 10-02-2024 Transferrin [Mass/Vol] Transferrin [Mass/volume] in Serum or Plasma 203-362 [facility] WBC Auto (Bld) [#/Vol]Ordere d By: Katharina Toledo on 10-02-2024 WBC (Bld) [#/Vol] Leukocytes [#/volume ] in Blood by Automated count 3.8-11.6 [facility] Office Visiton 09-24-2024 Follow-up visit [id number] Oliver Starks 1945 F Date Provider Department Center 09/24/2024 [id number] AMISH Lubin Family History Adopted: Yes Family history unknown: Yes Family Status - Relation Status Age at Mother Father Level of Service:55358 [place] OFFICE/OUTPATIENT ESTABLISHED MOD MDM 30 MIN Reason for Visit and Comments: Atrial Fibrillation [80] - Denies palpitations, lightheadedness/syncop e, and bleeding on Eliquis. Congestive Heart Failure [127] severe pulmonary hypertension [Other] - Denies chest pain and SOB. Edema [[id number]] - NOT taking lasix currently due to no LE edema. Normal [facility] Urinalysis macro (dipstick) panel (U)on 09-19-2024 Bilirubin, UA Negative Negative - 4(70) +++ mg/dL [facility] Blood, UA Positive Negative - 50 Shadi/mcL [facility] Clarity, UA Cloudy [facility] Color, [...] [facility] Protein, UA 3+ Negative - 1999(20) ++++ mg/dL [facility] Spec Grav, UA 1.3 1 - 1.03 [facility] Urobilinogen, UA 0.2 0.2 - 12 mg/dL [facility] C reactive protein [Mass/vol ume] in Serum or PlasmaOrdered By: Pedro Pablo Cruz on 08-24-2024 CRP [Mass/Vol] C reactive protein [Mass/volume] in Serum or Plasma High 0.0-0.5 [facility] C-Reactive Proteinon 024 C-Reactive Protein 1.1 mg/dL High 0.0-0.5 [facility] Comment on above: Result Comment: PERF ORMED BY: [place] [address] PATHOLOGIST LABELER KATHLEEN RAMOS M.D. Performed By: #### C RP #### [address] CBC W Auto Differential pane l [...] - 0.8 10*3/uL [facility] Monocytes+Macrophages /100 WBC Manual cnt (Syn [...] [#/Vol] 345 10*3/uL 150 - 450 10*3/uL [facility] RBC LM.HPF (Urine sed) [#/Area] 3.93 10*6/uL 3.60 - 5.00 10*6/uL [facility] WBC (Bld) [#/Vol] 8.9 10*3/uL 3.8 - 11.6 10*3/uL [facility] WBC LM.HPF (Urine sed) [#/Area] 8.9 10*3/uL 3.8 - 11.6 10*3/uL [facility] Complete Blood Count Auto Di ffon 08-24-2024 Basophils (Bld) [#/Vol] 0.1 10*3/uL Normal 0.0-0.2 [facility] Comment on above: Result Comment: PERF ORMED BY: [place] [address] PATHOLOGIST LABELER KATHLEEN RAMOS M.D. Performed By: #### F ER, [id number], CBC, FE and TIBC #### [address] Basophils/100 WBC (Bld) 0.9 % Normal . [facility] Comment on above: Performed By: #### F ER, [id number], CBC, FE and TIBC #### [address] Eosinophils (Bld) [#/Vol] 0.2 10*3/uL Normal 0.0-0.45 [facility] Comment on above: Performed By: #### F ER, [id number], CBC, FE and TIBC #### [address] Eosinophils/100 WBC (Bld) 2.6 % Normal . [facility] Comment on above: Performed By: #### F ER, [id number], CBC, FE and TIBC #### [address] Erythrocyte distribution width (RBC) [Ratio] 19.3 % High 11.9-15.3 [facility] Comment on above: Performed By: #### F ER, [id number], CBC, FE and TIBC #### [address] Hematocrit (Bld) [Volume fraction] 28.2 % Low 34.0-46.4 [facility] Comment on above: Performed By: #### F ER, [id number], CBC, FE and TIBC #### [address] Hemoglobin (Bld) [Mass/Vol] 8.6 g/dL Low 11.8-15.4 [facility] Comment on above: Performed By: #### F ER, [id number], CBC, FE and TIBC #### [address] Lymphocytes (Bld) [#/Vol] 2.1 10*3/uL Normal 1.00-4.8 [facility] Comment on above: Performed By: #### F ER, [id number], CBC, FE and TIBC #### [address] Lymphocytes/100 WBC (Bld) 23.5 % Normal . [facility] Comment on above: Performed By: #### F ER, [id number], CBC, FE and TIBC #### [address] MCH (RBC) [Entitic mass] 21.8 pg Low 24.7-34.3 [facility] Comment on above: Performed By: #### F ER, [id number], CBC, FE and TIBC #### [address] MCV (RBC) [Entitic vol] 71.9 fL Low 80-100 [facility] Comment on above: Performed By: #### F ER, [id number], CBC, FE and TIBC #### [address] Mean Corpuscular HGB Conc 30.4 g/dL Low 32.0-35.0 [facility] Comment on above: Performed By: #### F ER, [id number], CBC, FE and TIBC #### [address] Monocytes (Bld) [#/Vol] 0.6 10*3/uL Normal 0.0-0.8 [facility] Comment on above: Performed By: #### F ER, [id number], CBC, FE and TIBC #### [address] Monocytes/100 WBC (Bld) 6.8 % Normal . [facility] Comment on above: Performed By: #### F ER, [id number], CBC, FE and TIBC #### [address] Neutrophils (Bld) [#/Vol] 5.9 10*3/uL Normal 1.8-7.7 [facility] Comment on above: Performed By: #### F ER, [id number], CBC, FE and TIBC #### [address] Neutrophils/100 WBC (Bld) 66.2 % Normal . [facility] Comment on above: Performed By: #### F ER, [id number], CBC, FE and TIBC #### [address] NRBC% 0.0 /100{WBC} Normal 0-0.5 [facility] Comment on above: Performed By: #### F ER, [id number], CBC, FE and TIBC #### [address] Platelet mean volume (Bld) [Entitic vol] 6.9 fL Normal 6.3-10.7 [facility] Comment on above: Performed By: #### F ER, [id number], CBC, FE and TIBC #### [address] Platelets (Bld) [#/Vol] 345 10*3/uL Normal 150-450 [facility] Comment on above: Performed By: #### F ER, [id number], CBC, FE and TIBC #### [address] RBC (Bld) [#/Vol] 3.93 10*6/uL Normal 3.60-5.00 [facility] Comment on above: Performed By: #### F ER, [id number], CBC, FE and TIBC #### [address] WBC (Bld) [#/Vol] 8.9 10*3/uL Normal 3.8-11.6 [facility] Comment on above: Performed By: #### F ER, [id number], CBC, FE and TIBC #### [address] Erythrocyte Sedimentation Ra aren 08-24-2024 ESR (Bld) [Velocity] 103 mm/h High 0-29 [facility] Comment on above: Result Comment: PERF ORMED BY: [place] [address] PATHOLOGIST LABELER KATHLEEN RAMOS M.D. Performed By: #### E SR #### [address] Erythrocyte sedimentation ra te by Photometric methodOrdered By: Pedro Pablo Cruz on 08-24-2024 ESR Photometric method (Bld) [Velocity] Erythrocyte sedimentation rate by Photometric method High 0-29 [facility] Ferritinon 08-24-2024 Ferritin [Mass/Vol] 8.6 ng/mL Low 11.0-306.8 [facility] Comment on above: Performed By: #### F ER, [id number], CBC, FE and TIBC #### [address] Folate [Mass/volume] in Seru m or PlasmaOrdered By: Katharina Toledo on 08-24-2024 Folate [Mass/Vol] Folate [Mass/volume] in Serum or Plasma >5.9 [facility] Comment on above: Folate reference ran ge: >5.9 ng/mlThe WHO technical consultation on folate and vitamin [id number] has determined that folate concentrations lessthan 4 ng/ml are considered deficient. Iron and TIBC Profileon 08-12 % Iron Saturation 3.2 % Low 20-50 [facility] Comment on above: Performed By: #### F ER, [id number], CBC, FE and TIBC #### [address] Iron [Mass/Vol] 14 ug/dL Low 50-212 [facility] Comment on above: Performed By: #### F ER, [id number], CBC, FE and TIBC #### [address] Total Iron Binding Capacity 437 ug/dL Normal 255-450 [facility] Comment on above: Performed By: #### F ER, [id number], CBC, FE and TIBC #### [address] Transferrin [Mass/Vol] 312 mg/dL Normal 203-362 [facility] Comment on above: Performed By: #### F ER, [id number], CBC, FE and TIBC #### [address] Vit. B12/Folate Profileon Cobalamin (Vitamin B12) [Mass/Vol] 417 pg/mL Normal 180-914 [facility] Comment on above: Performed By: #### F ER, [id number], CBC, FE and TIBC #### [address] Folate 28.0 ng/mL Normal >5.9 [facility] Comment on above: Result Comment: Nayely te reference range: >5.9 ng/ml The WHO technical consultation on folate and vitamin b12 deficiencies has determined that folate concentrations less than 4 ng/ml are considered deficient. PERFORMED BY: [place] [address] PATHOLOGIST LABELER KATHLEEN RAMOS M.D. Performed By: #### F ER, [id number], CBC, FE and TIBC #### [address] Vitamin B12 ser/plasOrdered By: Katharina Toledo on 08-24-2024 Cobalamin (Vitamin B12) [Mass/Vol] Vitamin B12 ser/plas 180-914 [facility] TRANSFERRINon 07-25-2024 Transferrin [Mass/Vol] 284 mg/dL 192 - 364 mg/dL [facility] Comment on above: Performed at: - Lab[address] [id number] Acoustical Tile Patternmaker: Baudilio Givens PhD, Phone: [phone] [facility] ALL CBC WITH AUTO DIFFon BASOPHILS ABSOLUTE AUTO 0.1 [facility] Basophils/100 WBC (Bld) 0.9 % 0.2 - 2.0 % [facility] Eosinophils/100 WBC (Bld) 0.9 [...] 22.3 pg Low 26.7 - 34.0 pg [facility] MCHC (RBC) [Mass/Vol] 29.1 [...] 0.1 [facility] TBH PLT 328 [facility] RBC 3.9 Low [facility] WBC 10 [facility] IRON AND TIBCon 2023 Interpretation and review of laboratory results Abnormal [facility] IRON 17 ug/dL Low 50.0 - 170.0 ug/dL [facility] TB PERCENT IRON SATURATION 4.5 % [facility] TB TOTAL IRON BINDING CAPACITY 381 ug/dL 250.0 - 450.0 ug/dL [facility] Office Visiton 07-18-2024 Follow-up visit [id number] Oliver Starks 1945 F Date Provider Department Center 07/18/2024 [id number] KOLTON AMISH Lubin Family History Adopted: Yes Family history unknown: Yes Family Status - Relation Status Age at Mother Father Level of Service:85610 [place] OFFICE/OUTPATIENT ESTABLISHED MOD MDM 30 MIN Reason for Visit and Comments: Atrial Fibrillation [80] PACEMAKER [Other] Coronary Artery Disease [187] Hypertension [843327] Sinus node dysfunction [Other] - HAS [place]OST[place] PACER Obesity [[id number]] Edema [[id number]] Normal [facility] CNOVon 05-22-2024 CNOV Office Visit (LOORRM ) BREANN STARKS ([id number]) 1945 F Date Time Provider Department 05/22/24 [...] She was recommended for second opinion at [facility]. She also had a CRP [...] No date: COPD (chronic obstructive pulmonary disease) ([facility]) SOCIAL HISTORY: Tobacco Use: Never [...] I ordered (more content not included)... Normal [facility] XR SHLDR 4V AP/HECTOR/LAT/OUTLE T LTon [...] other significant abnormality. IMPRESSION: EXPECTED POSTOPERATIVE APPEARANCE Director [place] [employer]: PSC[employer] Transcribe Date/Time: May 22 2024 2:42P Dictated by : VILMA ABREU MD This examination was interpreted and the report reviewed and electronically signed by: VILMA ABREU MD on May 22 2024 2:42PM EST [id number] Normal [facility] XR Shoulder - left 4 Viewson 05-22-2024 IMPRESSION: EXPECTED POSTOPERATIVE APPEARANCE Director [place] [employer]: PSCB Transcribe Date/Time: May 22 2024 2:42P [...] other significant abnormality. DIVISION OF RADIOLOGY Provider, [facility] - 05/22/2024 * * *Final Report* [...] significant abnormality. IMPRESSION IMPRESSION: EXPECTED POSTOPERATIVE APPEARANCE Director [place] [employer]: STEVE Transcribe Date/Time: May 22 2024 2:42P Dictated by : VILMA ABREU MD This examination was interpreted and the report reviewed and electronically signed by: VILMA ABREU MD on May 22 2024 2:42PM EST [facility] Radiology Study observation (narrative) [facility] XR Shoulder - left 4 ViewsOr dered By: Ccf Provider on 05-22-2024 [facility] ALL CBC WITH AUTO DIFFon BASOPHILS ABSOLUTE AUTO 0.0 [facility] Basophils/100 WBC (Bld) 0.6 % 0.2 - 2.0 % [facility] Eosinophils/100 WBC (Bld) 1.0 % 0.9 - 7.0 % [facility] Erythrocyte distribution width (RBC) [Ratio] 19.6 % High 11.0 - 15.0 % [facility] Hematocrit (Bld) [Volume fraction] 32.9 % Low 36.0 - 48.0 % [facility] Hemoglobin (Bld) [Mass/Vol] 9.7 g/dL Low [...] 0.1 [facility] TB PLT 278 [facility] RBC 4.25 [facility] WBC 7.0 [facility] NM bone 3 phaseon 05-02-2024 NM bone 3 phase [facility] [place] [address] [place] [address] Nuclear Medicine Report Signed Patient: Breann Starks MR#: [id number] : 1945 Acct:[id number] Age/Sex: 78 / F ADM Date: 05/02/24 Loc: PA Room: Type: [facility] Attending Dr: Pedro Pablo Cruz PA-C Copies to: YOLY Sanon Jeffrey S DO Ordering Provider: Pedro Pablo Cruz PA-C Date of Service: 05/02/24 PA/PA bone 3 phase: M25.512, Z96.612 Nuclear medicine [...] be degenerative. Plain film correlation. No hyperemia. PA/NM bone 3 phase IMPRESSION: Increased uptake of the left the glenoid. There may be concern for loosening. Correlate with plain film imaging. Increased uptake of the left acromion. May represent degenerative change. Fracture may be present in this region. Correlate with plain film imaging. Impression dictated by: Etienne Rhodes M.D.05/02/2024 2:44 PM Dictation Location: [place] [address] Transcribed By: STAR 05/02/241443 Dictated By: CarmeloEtienne Fuentes DO 05/02/24 144 Signed By: 05/02/24 144 [facility] Lab Reportson 03-07-2024 Lab Reports [id number] 0TIFF Normal [facility] 36on 03-06-2024 36 Echo [...] to her pharmacy. BMP order faxed to [facility]. Breann verbalized understanding. Normal [facility] Consent for Procedure/Surger yon 03-05-2024 Consent for Procedure/Surgery [id number] 0TIFF Normal [facility] Ambulatory Visit Summaryon 0 03-02-2024 Ambulatory Visit Summary BREANN STARKS :1945 Visit Date:03/02/2024 Ambulatory Visit Instructions Your Care Team Attending Physician - CATHERINE CUBA, Jair Bishop Primary Care Physician - Barbara Dai Referring Physician - CIRA CUBA, [facility] This Is Your Medications List Contact [...] for choosing us for your care. Normal [facility] ED Note-Physicianon 03-02-20 24 ED Note-Physician [id number] TIFF Normal [facility] Insurance Correspondenceon 0 03-02-2024 Insurance Correspondence [id number]. 00TIFF [facility] Lab Reportson 03-02-2024 Lab Reports [id number] 0TIFF Normal [facility] 36on 01-25-2024 36 Patient called stati kassandra ever since her device was adjusted last month she's had this weird feeling in her throat. I called Sony Asif from [employer] and he told me this feeling she's having should not be from her device. Patient informed. I suggested she see PCP for this. She verbalized understanding. Normal [facility] DXA Skeletal system Views fo r bone densityon 12-12-2023 Interpretation and review of laboratory results Normal [facility] normal [facility] Radiology Study observation (narrative) [facility] XR LSPINE W_OBLS AND FLEX_EX [...] by: PAULA BROWN Date: 2023-01-31 11:34 Normal [facility] LIPID PROFILEon 12-16-2022 CHOL-HDL RATIO NORM SEE BELOW Normal [facility] Comment on above: Result Comment: 3.3 - 4.4 LOW RISK 4.4 - 7.1 AVERAGE RISK 7.1 - 11.0 MODERATE RISK >11.0 HIGH RISK Performed By: #### L IPID ####[facility] [address] [place] [id number]. Erasmo Smith Cholesterol [Mass/Vol] 105 mg/dL Normal <=200 [facility] Comment on above: Performed By: #### L IPID ####[facility] [address] [place] [id number]. Erasmo Smith Cholesterol in HDL [Mass/Vol] 48 mg/dL Normal 40-60 [facility] Comment on above: Performed By: #### L IPID ####[facility] L[address]hovvvdx[address] [place] [id number]. Erasmo Smith Cholesterol in LDL [Mass/Vol] 48.2 mg/dL Normal [facility] Comment on above: Performed By: #### L IPID ####[facility] Yasigvlnuz[address] [place], [place] [address]Vq. Erasmo Smith Cholesterol.total/Cho lesterol in HDL [Mass ratio] 2.2 {ratio} Normal [facility] Comment on above: Performed By: #### L IPID ####[facility] Uhlexxehir[address] [place] [id number]. rEasmo Smith HDL NORMAL > or = 60 mg/dl - LO W CARDIOVASCULAR RISK <40 mg/dl - HIGH CARDIOVASCULAR RISK Normal [facility] Comment on above: Performed By: #### L IPID ####[facility] [address] [place] [address]Dr. Erasmo Smith LDL CALC NORMAL SEE BELOW Normal [facility] Comment on above: Result Comment: <100 mg/dl OPTIMAL 100 - 129 mg/dl NEAR OR ABOVE OPTIMAL 130 - 159 mg/dl BORDERLINE HIGH 160 - 189 mg/dl HIGH >190 mg/dl VERY HIGH Performed By: #### L IPID ####[facility] [address]xvefjfxt[address] [place] [id number]. Erasmo Smith Triglyceride [Mass/Vol] 44 mg/dL Normal <=150 [facility] Comment on above: Performed By: #### L IPID ####[facility] Gauputnfnn[address] [place], [place] [address]Dr. Erasmo Smith VLDL CALC 8.8 mg/dL Normal [facility] Comment on above: Performed By: #### L IPID ####[facility] Qalmyrhhor[address] [place], [place] [address]Dr. Erasmo Smith CULTURE BLOODon 12-04-2022 Microscopic examination [...] Trimethoprim/Sulfameth oxazole <=20 S F Normal [facility] Comment on above: Performed By: #### B LDCX1 ####[facility] Arytqsutnd[address] [place], [place] [address]Dr. Erasmo Smith BNPon 12-03-2022 Natriuretic peptide B (Bld) [Mass/Vol] 413.0 pg/mL Normal <=1,800.0 [facility] Comment on above: Performed By: #### B CUSTOMER MANAGEMENT SPECIALIST #### [facility] [address] [address] [address] Erasmo Smith CBC AUTO DIFFon 12-03-2022 BASO # 0.0 103/ul Normal 0.0-0.1 [facility] Comment on above: Performed By: #### C BC ####[facility] [address] [place] [address]DrMeena Smith Basophils/100 WBC (Bld) 0.2 % Normal 0.2-2.0 [facility] Comment on above: Performed By: #### C BC ####[facility] Ibzsqnkhmy[address] [place], [place] [address]Dr. Erasmo Smith EO # 0.4 103/ul Normal 0.0-0.7 [facility] Comment on above: Performed By: #### C BC ####[facility] Kygeubwgmh[address] [place], [place] [address]Dr. Erasmo Smith Eosinophils/100 WBC (Bld) 2.1 % Normal 0.9-7.0 [facility] Comment on above: Performed By: #### C BC ####[facility] Fkypqoblnm[address] [place], [place] [address]Dr. Erasmo Smith Erythrocyte distribution width (RBC) [Ratio] 17.2 % Critically high 11.0-15.0 [facility] Comment on above: Performed By: #### C BC ####[facility] Jrsgtzwqje[address] [place], [place] [address]DrMeena Smith Hematocrit (Bld) [Volume fraction] 29.2 % Critically low 36.0-48.0 [facility] Comment on above: Performed By: #### C BC ####[facility] Cikgeqqhpx[address] [place], [place] [address]DrMeena Smith Hemoglobin (Bld) [Mass/Vol] 9.5 g/dL Critically low 12.0-16.0 [facility] Comment on above: Performed By: #### C BC ####[facility] [address] [place] [address]Dr. Erasmo Smith IG # 0.13 10e3/ul Critically high 0.00-0.03 [facility] Comment on above: Performed By: #### C BC ####[facility] [address] [place] [address]Dr. Erasmo Luis IG % 0.8 % Critically high 0.0-0.5 [facility] Comment on above: Performed By: #### C BC ####[facility] Tlhgwukazv[address] [place], [place] [address]Dr. Erasmo Luis LYMPH # 1.8 103/ul Normal 1.2-3.8 [facility] Comment on above: Performed By: #### C BC ####[facility] Vurvaksibh[address] [place], [place] [address]Dr. Erasmo Luis Lymphocytes/100 WBC (Bld) 10.3 % Critically low 20.5-60.0 [facility] Comment on above: Performed By: #### C BC ####[facility] Zfjipimrgj[address] [place], [place] [address]Dr. Heavenean Smith MANUAL DIFF REQ NO Normal [facility] Comment on above: Performed By: #### C BC ####[facility] Wncalzxzyh[address] [place], [place] [address]DrMeena Erasmo Smith MCH (RBC) [Entitic mass] 25.7 pg Critically low 26.7-34.0 [facility] Comment on above: Performed By: #### C BC ####[facility] Prrxmksuoi[address] [place], [place] [address]DrMeena Erasmo Smith MCHC (RBC) [Mass/Vol] 32.5 g/dL Normal 29.9-35.2 [facility] Comment on above: Performed By: #### C BC ####[facility] Rsoqnvnyzb[address] [place], [place] [address]DrMeena Erasmo Smith MCV (RBC) [Entitic vol] 79.1 fL Critically low 81.0-99.0 [facility] Comment on above: Performed By: #### C BC ####[facility] Bztfinq[address] [place], [place] [address]Dr. Erasmo Smith MONO # 1.5 103/ul Critically high 0.3-0.8 [facility] Comment on above: Performed By: #### C BC ####[facility] [address] [place] [id number]. Erasmo Smith Monocytes/100 WBC (Bld) 8.7 % Normal 1.7-12.0 [facility] Comment on above: Performed By: #### C BC ####[facility] [address]tr[address] [place] [address]Dr. Erasmo Smith NEUT # 13.4 103/ul Critically high 1.4-6.5 The [facility] Comment on above: Performed By: #### C BC ####[facility] [address] [place] [address]Dr. Erasmo Smith Neutrophils/100 WBC (Bld) 77.9 % Critically high 43.0-75.0 [facility] Comment on above: Performed By: #### C BC ####[facility] [address] [place] [address]Dr. Erasmo Smith Platelet mean volume (Bld) [Entitic vol] 9.3 fL Critically low 9.5-13.5 [facility] Comment on above: Performed By: #### C BC ####[facility] [address]ft[address] [place] [id number]. Erasmo Smith PLT 205 103/ul Normal 150-450 [facility] Comment on above: Performed By: #### C BC ####[facility] [address]ju[address] [place] [address]Dr. Erasmo Smith RBC 3.69 106/ul Critically low 4.20-5.40 [facility] Comment on above: Performed By: #### C BC ####[facility] R[address]zlu[address] [place] [id number]. Erasmo Smith WBC 17.2 103/ul Critically high 4.0-11.0 The [facility] Comment on above: Performed By: #### C BC ####[facility] [address]frlftcx[address] [place], [place] [address]Dr. Erasmo Smith MAGNESIUMon 12-03-2022 Magnesium [Mass/Vol] 1.9 mg/dL Normal 1.8-2.4 [facility] Comment on above: Performed By: #### B CUSTOMER MANAGEMENT SPECIALIST #### [facility] [address] [place] [address] Dr. Erasmo Smith PROF 14(COMP METB)on 023 Albumin [Mass/Vol] 2.6 g/dL Critically low 3.4-5.0 [facility] Comment on above: Performed By: #### B CUSTOMER MANAGEMENT SPECIALIST #### [facility] [address] [place] [address] Dr. Erasmo Smith Albumin/Globulin [Mass ratio] 0.6 {ratio} Normal [facility] Comment on above: Performed By: #### B CUSTOMER MANAGEMENT SPECIALIST #### [facility] [address] [place] [address] Dr. Erasmo Smith ALP [Catalytic activity/Vol] 123 U/L Critically high 46-116 [facility] Comment on above: Performed By: #### B CUSTOMER MANAGEMENT SPECIALIST #### [facility] [address] [place] [address] Dr. Erasmo Smith ALT [Catalytic activity/Vol] 28 U/L Normal 14-59 [facility] Comment on above: Performed By: #### B CUSTOMER MANAGEMENT SPECIALIST #### [facility] [address] [place] [address] Dr. Erasmo Smith Anion gap [Moles/Vol] 9.4 mmol/L Normal [facility] Comment on above: Performed By: #### B CUSTOMER MANAGEMENT SPECIALIST #### [facility] [address] [place] [address] Dr. Erasmo Smith AST [Catalytic activity/Vol] 21 U/L Normal 15-37 [facility] Comment on above: Performed By: #### B CUSTOMER MANAGEMENT SPECIALIST #### [facility] [address] [place] [address] Dr. Erasmo Smith Bilirubin [Mass/Vol] 0.3 mg/dL Normal 0.2-1.0 [facility] Comment on above: Performed By: #### B CUSTOMER MANAGEMENT SPECIALIST #### [facility] [address] [place] [address] Dr. Erasmo Smith Calcium [Mass/Vol] 8.3 mg/dL Critically low 8.5-10.1 Th [facility] Comment on above: Performed By: #### B CUSTOMER MANAGEMENT SPECIALIST #### [facility] [address] [place] [address] Dr. Erasmo Smith Chloride [Moles/Vol] 105 mmol/L Normal 98-107 [facility] Comment on above: Performed By: #### B CUSTOMER MANAGEMENT SPECIALIST #### [facility] [address] [place] [address] Dr. Erasmo Smith CO2 [Moles/Vol] 27.1 mmol/L Normal 21.0-32.0 [facility] Comment on above: Performed By: #### B CUSTOMER MANAGEMENT SPECIALIST #### [facility] [address] [place] [address] Dr. Erasmo Smith Creatinine [Mass/Vol] 0.55 mg/dL Normal 0.55-1.02 [facility] Comment on above: Performed By: #### B CUSTOMER MANAGEMENT SPECIALIST #### [facility] [address] [place] [address] Dr. Erasmo Smith EGFR-AF CAMEROONIAN >60 Normal >=60 [facility] Comment on above: Performed By: #### B CUSTOMER MANAGEMENT SPECIALIST #### [facility] [address] [place] [address] Dr. Erasmo Smith EGFR-NON AF CAMEROONIAN >60 Normal >=60 [facility] Comment on above: Performed By: #### B CUSTOMER MANAGEMENT SPECIALIST #### [facility] [address] [place] [address] Dr. Erasmo Smith Globulin (S) [Mass/Vol] 4.0 g/dL Normal [facility] Comment on above: Performed By: #### B CUSTOMER MANAGEMENT SPECIALIST #### [facility] [address] [place] [address] Dr. Erasmo Smith Glucose [Mass/Vol] 132 mg/dL Critically high 74-106 T [facility] Comment on above: Performed By: #### B CUSTOMER MANAGEMENT SPECIALIST #### [facility] [address] [place] [address] Dr. Erasmo Smith Potassium [Moles/Vol] 3.5 mmol/L Normal 3.5-5.1 [facility] Comment on above: Performed By: #### B CUSTOMER MANAGEMENT SPECIALIST #### [facility] [address] [place] [address] Dr. Erasmo Smith Protein [Mass/Vol] 6.6 g/dL Normal 6.4-8.2 [facility] Comment on above: Performed By: #### B CUSTOMER MANAGEMENT SPECIALIST #### [facility] [address] [place] [address] Dr. Erasmo Smith Sodium [Moles/Vol] 138 mmol/L Normal 136-145 [facility] Comment on above: Performed By: #### B CUSTOMER MANAGEMENT SPECIALIST #### [facility] [address] [place] [address] Dr. Erasmo Smith Urea nitrogen [Mass/Vol] 24.0 mg/dL Critically high 7.0-18.0 [facility] Comment on above: Performed By: #### B CUSTOMER MANAGEMENT SPECIALIST #### [facility] [address] [place] [address] Dr. Erasmo Smith Urea nitrogen/Creatinine [Mass ratio] 43.6 mg/mg Normal [facility] Comment on above: Performed By: #### B CUSTOMER MANAGEMENT SPECIALIST #### [facility] [address] [place] [address] Dr. Erasmo Smith PROTIMEon 12-03-2022 INR Coag (PPP) [Relative time] 4.41 {INR} Critically high [facility] Comment on above: Performed By: #### C MREP #### [facility] [address] [place] [address] Dr. Erasmo Smith INR GUIDELINES SEE BELOW Normal [facility] Comment on above: Result Comment: ABNER RED INR: 2.0 - 3.0 CONDITIONS NOT LISTED BELOW 2.5 - 3.5 FOR PROSTHETIC HEART VALVE REPLACEMENT 2.5 - 3.5 RECURRENT THROMBOSIS Performed By: #### C MREP #### [facility] [address] [place] [address] Dr. Erasmo Smith PT Coag (PPP) [Time] 43.0 s Critically high 9.0-11.6 [facility] Comment on above: Performed By: #### C MREP #### [facility] [address] [address] [address] Erasmo Smith BLOOD CULTURE ID PANELon A. baumannii Not detected Normal NOT DETECTED The [facility] Comment on above: Performed By: #### B CID2 ####[facility] [address] [place] [id number]. Yiean Smith Bacteriodes fragilis Not detected Normal NOT DETECTED [facility] Comment on above: Performed By: #### B CID2 ####[facility] [address]cos[address] [address]Dr. Yiean Luis BCID CONTROLS PASSED Normal The [facility] Comment on above: Performed By: #### B CID2 ####[facility] [address] [address]Dr. Erasmo Smith BCIDBTHD BLOOD CULTURE BOTTLE INFORMATION Normal [facility] Comment on above: Performed By: #### B CID2 ####[facility] [address] [place] [address]Dr. Erasmo Smith BCIDHD1 ANTIMICROBIAL RESISTANCE GENES Normal [facility] Comment on above: Performed By: #### B CID2 ####[facility] [address] [address]Dr. Heavenean Smith BCIDHD2 SEE BELOW Normal [facility] Comment on above: Result Comment: Note : Antimicrobial resitance can occur via multiple mechanisms. A Not Detected result for the [employer] antomicrobial resistance gene assays does not indicate antimicrobial susceptibility. Subculturing is required for species identification and susceptibility testing of isolates. Performed By: #### B CID2 ####[facility] [address]dw[address] [place] [id number]. Heavenean Luis BCIDHD3 Positive Normal [facility] Comment on above: Performed By: #### B CID2 ####[facility] E[address] [place] [address]Dr. Erasmo Luis BCIDHD4 Negative Normal [facility] Comment on above: Performed By: #### B CID2 ####[facility] [address] [address]Dr. Erasmo Smith BCIDHD5 YEAST Normal [facility] Comment on above: Performed By: #### B CID2 ####[facility] [address] [address]Dr. Yilan Smith Bottle Set: Set 1 Normal [facility] Comment on above: Performed By: #### B CID2 ####[facility] [address]ux[address] [address]Dr. Yiean Smith Bottle: Anaerobic Normal [facility] Comment on above: Performed By: #### B CID2 ####[facility] [address]hb[address] [place] [address]Dr. Yilan Smith C. neoformans/gattii Not detected Normal NOT DETECTED [facility] Comment on above: Performed By: #### B CID2 ####[facility] Aqdjozosoj[address] [place], [place] [address]Dr. Yiean Smith Naye albicans Not detected Normal NOT DETECTED [facility] Comment on above: Performed By: #### B CID2 ####[facility] Drjgkofjie[address] [place], [place] [address]Dr. Yiean Smith Naye auris Not detected Normal NOT DETECTED [facility] Comment on above: Performed By: #### B CID2 ####[facility] Zpjcuwklfr[address] [place], [place] [address]Dr. Yilan Smith Naye glabrata Not detected Normal NOT DETECTED [facility] Comment on above: Performed By: #### B CID2 ####[facility] [address]uevkm[address] [address]Dr. Yilan Smith Naye Krusei Not detected Normal NOT DETECTED The [facility] Comment on above: Performed By: #### B CID2 ####[facility] Q[address]ibmjutrz[address] [place] [address]Dr. Yilan Smith Naye Parapsilosis Not detected Normal NOT DETECTED [facility] Comment on above: Performed By: #### B CID2 ####[facility] [address] [address]Dr. Yilan Smith Naye Tropicalis Not detected Normal NOT DETECTED [facility] Comment on above: Performed By: #### B CID2 ####[facility] [address]us[address]bngi[address] [place], [place] [address]Dr. Erasmo Smith CTX-M Resistant Gene Not Applicable Normal NOT DETECTE D [facility] Comment on above: Performed By: #### B CID2 ####[facility] Amtkdgxloo[address] [place], [place] [address]Dr. Erasmo Smith E. Cloacae complex Not detected Normal NOT DETECTED [facility] Comment on above: Performed By: #### B CID2 ####[facility] Gcnqrjubyz[address] [place], [place] [address]Dr. Erasmo Smith E. faecalis Not detected Normal NOT DETECTED [facility] Comment on above: Performed By: #### B CID2 ####[facility] Vszncehxmn[address] [place], [place] [address]Dr. Erasmo Smith E. faecium Not detected Normal NOT DETECTED [facility] Comment on above: Performed By: #### B CID2 ####[facility] [address]fhvuswl[address] [place], [place] [address]Dr. Erasmo Smith Enterobacteriaceae Detected Critically abnormal NOT DETECTED [facility] Comment on above: Performed By: #### B CID2 ####[facility] Pxcgrxauny[address] [place], [place] [address]Dr. Erasmo Smith Escherichia coli Detected Critically abnormal NOT DETECTED [facility] Comment on above: Performed By: #### B CID2 ####[facility] Jdexfxjqjq87[address] [place], [place] [address]Dr. Erasmo Smith H. influenzae Not detected Normal NOT DETECTED [facility] Comment on above: Performed By: #### B CID2 ####[facility] Qoblcsjlsh9[address] [place], [place] [address]Dr. Erasmo Smith IMP Resistant Gene Not Applicable Normal NOT DETECTED [facility] Comment on above: Performed By: #### B CID2 ####[facility] Eetqzgtmed[address] [place], [place] [address]Dr. Erasmo Smith K. oxytoca Not detected Normal NOT DETECTED [facility] Comment on above: Performed By: #### B CID2 ####[facility] Drkknevcvk[address] [place], [place] [address]Dr. Erasmo Smith K. pneumoniae Not detected Normal NOT DETECTED [facility] Comment on above: Performed By: #### B CID2 ####[facility] Rtwuolzcqd23[address] [place], [place] [address]Dr. Erasmo Smith Klebsiella aerogenes Not detected Normal NOT DETECTED [facility] Comment on above: Performed By: #### B CID2 ####[facility] Huxeebelcu[address] [place], [place] [address]Dr. Erasmo Smith KPC Resistant Gene Not detected Normal NOT DETECTED [facility] Comment on above: Performed By: #### B CID2 ####[facility] Bgczkoshct[address] [place], [place] [address]Dr. Erasmo Smith List. monocytogenes Not detected Normal NOT DETECTED [facility] Comment on above: Performed By: #### B CID2 ####[facility] Csqxdlnxem[address] [place], [place] [address]Dr. Erasmo Smith Mcr-1 Resistant Gene Not Applicable Normal NOT DETECTE D [facility] Comment on above: Performed By: #### B CID2 ####[facility] Pkawxzpzel[address] [place], [place] [address]Dr. Erasmo Smith mecA/C Not Applicable Normal NOT DETECTED The [facility] Comment on above: Performed By: #### B CID2 ####[facility] Emyibwhziu[address] [place], [place] [address]Dr. Erasmo Smith mecA/C MREJ Not Applicable Normal NOT DETECTED [facility] Comment on above: Performed By: #### B CID2 ####[facility] Iglojrztjg14[address] [place], [place] [address]Dr. Erasmo Smith N. meningitidis Not detected Normal NOT DETECTED The [facility] Comment on above: Performed By: #### B CID2 ####[facility] Sgcwuhoeet[address] [place], [place] [address]Dr. Erasmo Smith NDM Resistant Gene Not Applicable Normal NOT DETECTED [facility] Comment on above: Performed By: #### B CID2 ####[facility] Iszeqnbtcd[address] [place], [place] [address]Dr. Erasmo Smith Oxa-48-like Not Applicable Normal NOT DETECTED [facility] Comment on above: Performed By: #### B CID2 ####[facility] Eiiuznoiix35[address] [place], [place] [address]Dr. Erasmo Smith Proteus Not detected Normal NOT DETECTED [facility] Comment on above: Performed By: #### B CID2 ####[facility] Oeoawqzarf[address] [place], [place] [address]Dr. Erasmo Smith Pseud. aeruginosa Not detected Normal NOT DETECTED [facility] Comment on above: Performed By: #### B CID2 ####[facility] Dymntftcil37[address] [place], [place] [address]Dr. Erasmo Smith S. maltophilia Not detected Normal NOT DETECTED The [facility] Comment on above: Performed By: #### B CID2 ####[facility] Ecrmwtxlpc[address] [place], [place] [address]Dr. Erasmo Smith Salmonella Not detected Normal NOT DETECTED [facility] Comment on above: Performed By: #### B CID2 ####[facility] Jkknopaxbz[address] [place], [place] [address]Dr. Erasmo Smith Seratia marcescens Not detected Normal NOT DETECTED [facility] Comment on above: Performed By: #### B CID2 ####[facility] Ggztsrayae[address] [place], [place] [address]Dr. Erasmo Smith Site: l ac Normal [facility] Comment on above: Performed By: #### B CID2 ####[facility] Dntgybkbbh[address] [place], [place] [address]Dr. Erasmo Smith Staph. aureus Not detected Normal NOT DETECTED [facility] Comment on above: Performed By: #### B CID2 ####[facility] Saxasxbkzq64[address] [place], [place] [address]Dr. Erasmo Smith Staph. epidermidis Not detected Normal NOT DETECTED [facility] Comment on above: Performed By: #### B CID2 ####[facility] Ggeagyvaud[address] [place], [place] [address]Dr. Erasmo Smith Staph. lugdunensis Not detected Normal NOT DETECTED [facility] Comment on above: Performed By: #### B CID2 ####[facility] [address]fe[address] [address]Dr. Erasmo Smith Staphylococcus Not detected Normal NOT DETECTED The [facility] Comment on above: Performed By: #### B CID2 ####[facility] N[address]vmp[address] [address]Dr. Erasmo Smith Strep. agalactiae Not detected Normal NOT DETECTED [facility] Comment on above: Performed By: #### B CID2 ####[facility] [address]jj[address] [address]Dr. Erasmo Smith Strep. pneumoniae Not detected Normal NOT DETECTED [facility] Comment on above: Performed By: #### B CID2 ####[facility] Y[address]hes[address]ym[address] [address]Dr. Erasmo Smith Strep. pyogenes Not detected Normal NOT DETECTED The [facility] Comment on above: Performed By: #### B CID2 ####[facility] B[address]sesbj[address] [place], [place] [address]Dr. Erasmo Smith Streptococcus Not detected Normal NOT DETECTED [facility] Comment on above: Performed By: #### B CID2 ####[facility] Rnitjtpvvl[address] [place], [place] [address]Dr. Erasmo Smith Fran/B Resist. Gene Not detected Normal NOT DETECTED [facility] Comment on above: Performed By: #### B CID2 ####[facility] Tfswlwfagy[address] [place], [place] [address]Dr. Erasmo [facility] VIM Resistant Gene Not Applicable Normal NOT DETECTED [facility] Comment on above: Performed By: #### B CID2 ####[facility] [address] [place] [address]DrMeena Smith BNPon 12-02-2022 Natriuretic peptide B (Bld) [Mass/Vol] 1059.0 pg/mL Normal <=1,800.0 [facility] Comment on above: Performed By: #### B CUSTOMER MANAGEMENT SPECIALIST #### [facility] [address] [address] [address] Erasmo Smith CBC AUTO DIFFon 12-02-2022 BASO # 0.0 103/ul Normal 0.0-0.1 [facility] Comment on above: Performed By: #### C BC ####[facility] [address] [place] [address]Dr. Erasmo Smith Basophils/100 WBC (Bld) 0.2 % Normal 0.2-2.0 [facility] Comment on above: Performed By: #### C BC ####[facility] [address]be[address] [place] [address]Dr. Erasmo Smith EO # 0.0 103/ul Normal 0.0-0.7 [facility] Comment on above: Performed By: #### C BC ####[facility] [address] [place] [address]Dr. Erasmo Smith Eosinophils/100 WBC (Bld) 0.0 % Critically low 0.9-7.0 [facility] Comment on above: Performed By: #### C BC ####[facility] [address] [place], [place] [address]Dr. Erasmo Smith Erythrocyte distribution width (RBC) [Ratio] 17.3 % Critically high 11.0-15.0 [facility] Comment on above: Performed By: #### C BC ####[facility] [address] [place] [address]Dr. Erasmo Smith Hematocrit (Bld) [Volume fraction] 31.4 % Critically low 36.0-48.0 [facility] Comment on above: Performed By: #### C BC ####[facility] [address] [place] [address]Dr. Erasmo Smith Hemoglobin (Bld) [Mass/Vol] 10.0 g/dL Critically low 12.0-16.0 [facility] Comment on above: Performed By: #### C BC ####[facility] [address] [place] [address]Dr. Erasmo Smith IG # 0.06 10e3/ul Critically high 0.00-0.03 [facility] Comment on above: Performed By: #### C BC ####[facility] [address] [place] [id number]. Erasmo Luis IG % 0.4 % Normal 0.0-0.5 [facility] Comment on above: Performed By: #### C BC ####[facility] [address] [place] [address]Dr. Erasmo Luis LYMPH # 1.3 103/ul Normal 1.2-3.8 [facility] Comment on above: Performed By: #### C BC ####[facility] [address]ytl[address] [place] [id number]. Erasmo Luis Lymphocytes/100 WBC (Bld) 8.1 % Critically low 20.5-60.0 [facility] Comment on above: Performed By: #### C BC ####[facility] [address]clm[address] [place] [address]Dr. Heavenean Smith MANUAL DIFF REQ NO Normal [facility] Comment on above: Performed By: #### C BC ####[facility] [address]ons[address] [place] [address]Dr. Erasmo Luis MCH (RBC) [Entitic mass] 25.6 pg Critically low 26.7-34.0 [facility] Comment on above: Performed By: #### C BC ####[facility] [address] [place], [place] [address]Dr. Erasmo Smith MCHC (RBC) [Mass/Vol] 31.8 g/dL Normal 29.9-35.2 [facility] Comment on above: Performed By: #### C BC ####[facility] [address]eszi[address] [place] [address]Dr. Erasmo Smith MCV (RBC) [Entitic vol] 80.3 fL Critically low 81.0-99.0 [facility] Comment on above: Performed By: #### C BC ####[facility] X[address] [place], [place] [address]Dr. Heavenean Smith MONO # 0.6 103/ul Normal 0.3-0.8 [facility] Comment on above: Performed By: #### C BC ####[facility] [address] [place] [id number]. Erasmo Smith Monocytes/100 WBC (Bld) 3.7 % Normal 1.7-12.0 [facility] Comment on above: Performed By: #### C BC ####[facility] [address] [place] [address]Dr. Erasmo Smith NEUT # 14.5 103/ul Critically high 1.4-6.5 [facility] Comment on above: Performed By: #### C BC ####[facility] [address] [place] [address]Dr. Erasmo Smith Neutrophils/100 WBC (Bld) 87.6 % Critically high 43.0-75.0 [facility] Comment on above: Performed By: #### C BC ####[facility] [address]ax[address] [place] [address]Dr. Erasmo Smith Platelet mean volume (Bld) [Entitic vol] 10.0 fL Normal 9.5-13.5 [facility] Comment on above: Performed By: #### C BC ####[facility] [address]uhog[address] [place] [id number]. Erasmo Smith PLT 206 103/ul Normal 150-450 [facility] Comment on above: Performed By: #### C BC ####[facility] [address]qfxmultb[address] [place] [address]Dr. Erasmo Smith RBC 3.91 106/ul Critically low 4.20-5.40 [facility] Comment on above: Performed By: #### C BC ####[facility] [address]con[address]rgf[address] [place] [id number]. Erasmo Smith WBC 16.5 103/ul Critically high 4.0-11.0 [facility] Comment on above: Performed By: #### C BC ####[facility] [address] [place], [place] [address]Dr. Erasmo Smith ECHOCARDIO M/2D COMPLETEon 0 12-02-2022 ECHOCARDIO M/2D COMPLETE Patient: BREANN STARKS Exam Date: 12/02/2022 : 1945 Gender:F Ordering : KAYLEY HOLMAN . Admission #: [id number] Family : DR LIEBERMAN Reyna JOHNSON . Order #: [id number] CLICK HERE TO VIEW EXAM ECHOCARDIOGRAM REPORT [...] Salazar M.D. on 12/02/2022 at 21:58 Normal [facility] MAGNESIUMon 12-02-2022 Magnesium [Mass/Vol] 2.0 mg/dL Normal 1.8-2.4 [facility] Comment on above: Performed By: #### B CUSTOMER MANAGEMENT SPECIALIST #### [facility] [address] [place] [address] Dr. Erasmo Smith PROF 14(COMP METB)on 023 Albumin [Mass/Vol] 2.7 g/dL Critically low 3.4-5.0 [facility] Comment on above: Performed By: #### B CUSTOMER MANAGEMENT SPECIALIST #### [facility] [address] [place] [address] Dr. Erasmo Smith Albumin/Globulin [Mass ratio] 0.6 {ratio} Normal [facility] Comment on above: Performed By: #### B CUSTOMER MANAGEMENT SPECIALIST #### [facility] [address] [place] [address] Dr. Erasmo Smith ALP [Catalytic activity/Vol] 128 U/L Critically high 46-116 [facility] Comment on above: Performed By: #### B CUSTOMER MANAGEMENT SPECIALIST #### [facility] [address] [address] [address] Erasmo Smith ALT [Catalytic activity/Vol] 34 U/L Normal 14-59 [facility] Comment on above: Performed By: #### B CUSTOMER MANAGEMENT SPECIALIST #### [facility] [address] [place] [address] Dr. Erasmo Smith Anion gap [Moles/Vol] 10.6 mmol/L Normal [facility] Comment on above: Performed By: #### B CUSTOMER MANAGEMENT SPECIALIST #### [facility] [address] [address] [address] Erasmo Smith AST [Catalytic activity/Vol] 27 U/L Normal 15-37 [facility] Comment on above: Performed By: #### B CUSTOMER MANAGEMENT SPECIALIST #### [facility] [address] [place] [address] Dr. Erasmo Smith Bilirubin [Mass/Vol] 0.5 mg/dL Normal 0.2-1.0 [facility] Comment on above: Performed By: #### B CUSTOMER MANAGEMENT SPECIALIST #### [facility] [address] [place] [address] Dr. Erasmo Smith Calcium [Mass/Vol] 8.4 mg/dL Critically low 8.5-10.1 [facility] Comment on above: Performed By: #### B CUSTOMER MANAGEMENT SPECIALIST #### [facility] [address] [place] [address] Dr. Erasmo Smith Chloride [Moles/Vol] 104 mmol/L Normal 98-107 [facility] Comment on above: Performed By: #### B CUSTOMER MANAGEMENT SPECIALIST #### [facility] [address] [place] [address] Dr. Erasmo Smith CO2 [Moles/Vol] 26.2 mmol/L Normal 21.0-32.0 [facility] Comment on above: Performed By: #### B CUSTOMER MANAGEMENT SPECIALIST #### [facility] [address] [place] [address] Dr. Erasmo Smith Creatinine [Mass/Vol] 0.52 mg/dL Critically low 0.55-1.02 [facility] Comment on above: Performed By: #### B CUSTOMER MANAGEMENT SPECIALIST #### [facility] [address] [place] [address] Dr. Erasmo Smith EGFR-AF CAMEROONIAN >60 Normal >=60 [facility] Comment on above: Performed By: #### B CUSTOMER MANAGEMENT SPECIALIST #### [facility] [address] [address] [address] Erasmo Smith EGFR-NON AF CAMEROONIAN >60 Normal >=60 [facility] Comment on above: Performed By: #### B CUSTOMER MANAGEMENT SPECIALIST #### [facility] [address] [address] [address] Erasmo Smith Globulin (S) [Mass/Vol] 4.3 g/dL Normal [facility] Comment on above: Performed By: #### B CUSTOMER MANAGEMENT SPECIALIST #### [facility] [address] [address] [address] Erasmo Smith Glucose [Mass/Vol] 135 mg/dL Critically high 74-106 [facility] Comment on above: Performed By: #### B CUSTOMER MANAGEMENT SPECIALIST #### [facility] [address] [address] [address] Erasmo Smith Potassium [Moles/Vol] 3.8 mmol/L Normal 3.5-5.1 [facility] Comment on above: Performed By: #### B CUSTOMER MANAGEMENT SPECIALIST #### [facility] [address] [place] [address] Dr. Erasmo Smith Protein [Mass/Vol] 7.0 g/dL Normal 6.4-8.2 [facility] Comment on above: Performed By: #### B CUSTOMER MANAGEMENT SPECIALIST #### [facility] [address] [address] [address] Erasmo Smith Sodium [Moles/Vol] 137 mmol/L Normal 136-145 [facility] Comment on above: Performed By: #### B CUSTOMER MANAGEMENT SPECIALIST #### [facility] [address] [address] [address] Erasmo Smith Urea nitrogen [Mass/Vol] 16.0 mg/dL Normal 7.0-18.0 [facility] Comment on above: Performed By: #### B CUSTOMER MANAGEMENT SPECIALIST #### [facility] [address] [address] [address] Erasmo Smith Urea nitrogen/Creatinine [Mass ratio] 30.8 mg/mg Normal [facility] Comment on above: Performed By: #### B CUSTOMER MANAGEMENT SPECIALIST #### [facility] [address] [address] [address] Erasmo Smith PROTIMEon 12-02-2022 INR Coag (PPP) [Relative time] 4.39 {INR} Critically high [facility] Comment on above: Performed By: #### P T #### [facility] [address] [address] [address] Erasmo Smith INR GUIDELINES SEE BELOW Normal [facility] Comment on above: Result Comment: ABNER RED INR: 2.0 - 3.0 CONDITIONS NOT LISTED BELOW 2.5 - 3.5 FOR PROSTHETIC HEART VALVE REPLACEMENT 2.5 - 3.5 RECURRENT THROMBOSIS Performed By: #### P T #### [facility] [address] [address] [address] Erasmo Smith PT Coag (PPP) [Time] 42.8 s Critically high 9.0-11.6 [facility] Comment on above: Performed By: #### P T #### [facility] [address] [address] [address] Erasmo Smith UA RANDOM W/MICROSCOPICon BACTERIA NONE SEEN Normal NONE SEEN [facility] Comment on above: Performed By: #### U AMIC ####[facility] [address] [place] [address]DrMeena Smith Bilirubin Ql (U) Negative Normal NEGATIVE [facility] Comment on above: Performed By: #### U AMIC ####[facility] [address]ls[address] [place] [address]DrMeena Smith CAST NONE SEEN Normal NONE SEEN [facility] Comment on above: Performed By: #### U AMIC ####[facility] [address] [place] [address]DrMeena Smith Clarity (U) CLEAR Normal CLEAR [facility] Comment on above: Performed By: #### U AMIC ####[facility] [address]mirrh[address] [place] [address]DrMeena Smith Color (U) YELLOW Normal YELLOW [facility] Comment on above: Performed By: #### U AMIC ####[facility] [address]rhdba[address] [address]Dr. Erasmo Smith Crystals LM Nom (Urine sed) NONE SEEN Normal NONE SEEN [facility] Comment on above: Performed By: #### U AMIC ####[facility] [address]rjcd[address] [place] [address]Dr. Erasmo Smith Epithelial cells LM Ql (Urine sed) RARE Normal NONE SEEN /RARE [facility] Comment on above: Performed By: #### U AMIC ####[facility] [address]atte[address] [place] [address]Dr. Erasmo Smith Glucose Ql (U) Negative Normal NEGATIVE [facility] Comment on above: Performed By: #### U AMIC ####[facility] [address] [place], [place] [address]Dr. Erasmo Smith Hemoglobin Ql (U) SMALL Abnormal NEGATIVE [facility] Comment on above: Performed By: #### U AMIC ####[facility] [address]im[address] [place], [place] [address]Dr. Erasmo Smith Ketones Ql (U) 15 mg/dl Abnormal NEGATIVE [facility] Comment on above: Performed By: #### U AMIC ####[facility] [address] [place], [place] [address]Dr. Erasmo Smith LEUKOCYTES Negative Normal NEGATIVE [facility] Comment on above: Performed By: #### U AMIC ####[facility] [address]nc[address]yg[address] [place], [place] [address]Dr. Erasmo Smith MUCOUS NONE SEEN Normal NONE SEEN [facility] Comment on above: Performed By: #### U AMIC ####[facility] [address]xzz[address] [place], [place] [address]Dr. Erasmo Smith Nitrite Ql (U) Negative Normal NEGATIVE [facility] Comment on above: Performed By: #### U AMIC ####[facility] [address]reuxkxr[address] [place] [address]Dr. Erasmo Smith pH (U) 6.0 [pH] Normal 5-9 [facility] Comment on above: Performed By: #### U AMIC ####[facility] [address] [place] [address]Dr. Erasmo Smith RBC 0-2 Normal 0-2 [facility] Comment on above: Performed By: #### U AMIC ####[facility] [address]uel[address] [place] [address]Dr. Erasmo Smith SPEC GRAVITY 1.025 Normal 1.005-<=1.02 5 [facility] Comment on above: Performed By: #### U AMIC ####[facility] [address] [place] [address]Dr. Erasmo Smith UA PROTEIN TRACE Normal NEGATIVE/ TRACE [facility] Comment on above: Performed By: #### U AMIC ####[facility] [address] [place] [address]Dr. Erasmo Smith Urobilinogen Qn (U) 4 {Shraddha'U}/dL Abnormal 0.2 - 1.0 [facility] Comment on above: Performed By: #### U AMIC ####[facility] [address] [place] [id number]. Erasmo Smith WBC 0-2 Abnormal NONE SEEN [facility] Comment on above: Performed By: #### U AMIC ####[facility] [address] [address]Dr. Erasmo Smith CARDIAC ROSA ELENA 3-6on 3 CK [Catalytic activity/Vol] 53 U/L Normal 26-192 [facility] Comment on above: Performed By: #### C MREP #### [facility] [address] [address] [address] Erasmo Smith CK.MB [Mass/Vol] 0.90 ng/mL Normal <=3.60 [facility] Comment on above: Performed By: #### C MREP #### [facility] [address] [address] [address] Erasmo Smith HSTROP 116.7 pg/mL Critically [...] DIAGNOSIS. Performed By: #### C MREP #### [facility] [address] [place] [address] Dr. Erasmo Smith CK [Catalytic activity/Vol] 47 U/L Normal 26-192 [facility] Comment on above: Performed By: #### B CUSTOMER MANAGEMENT SPECIALIST #### [facility] [address] [place] [address] Dr. Erasmo Smith CK.MB [Mass/Vol] 1.00 ng/mL Normal <=3.60 [facility] Comment on above: Performed By: #### B CUSTOMER MANAGEMENT SPECIALIST #### [facility] [address] [place] [address] Dr. Erasmo Smith HSTROP 154.3 pg/mL Critically [...] FOR ND DIAGNOSIS. Performed By: #### B CUSTOMER MANAGEMENT SPECIALIST #### [facility] [address] [place] [address] Dr. Erasmo Smith CBC W MANUAL DIFFon 12-02-19 23 ATYPICAL LYMPH # Normal [facility] Comment on above: Performed By: #### C ANGELA #### [facility] [address] [place] [address] Dr. Erasmo Smith ATYPICAL LYMPH % Normal [facility] Comment on above: Performed By: #### C ANGELA #### [facility] [address] [place] [address] Dr. Erasmo Smith BAND # 0.6 103/ul Critically high 0.0-0.3 [facility] Comment on above: Performed By: #### C ANGELA #### [facility] [address] [place] [address] Dr. Erasmo Smith BAND % 3 % Normal 0-5 [facility] Comment on above: Performed By: #### C ANGELA #### [facility] [address] [address] [address] Erasmo Smith BASOM # 0.00 103/ul Normal 0.00-0.10 [facility] Comment on above: Performed By: #### C BCMAN #### [facility] [address] [address] [address] Erasmo Smith BASOM % 0.0 % Critically low 0.2-2.0 [facility] Comment on above: Performed By: #### C BCMAN #### [facility] [address] [place] [address] Dr. Erasmo Smith BLAST # Normal [facility] Comment on above: Performed By: #### C BCBLAISE #### [facility] [address] [place] [address] Dr. Erasmo Smith BLAST % Normal [facility] Comment on above: Performed By: #### C BCBLAISE #### [facility] [address] [place] [address] Dr. Erasmo Smith CORRECTED WBC Normal 4.0-11.0 [facility] Comment on above: Performed By: #### C BCBLAISE #### [facility] [address] [place] [address] Dr. Erasmo Smith EOS # 0.19 103/ul Normal 0.00-0.70 [facility] Comment on above: Performed By: #### C BCBLAISE #### [facility] [address] [place] [address] Dr. Erasmo Smith EOS% 1.0 % Normal 0.9-7.0 [facility] Comment on above: Performed By: #### C BCBLAISE #### [facility] [address] [place] [address] Dr. Erasmo Smith HCT 32.7 % Critically low 36.0-48.0 [facility] Comment on above: Performed By: #### C BCBLAISE #### [facility] [address] [place] [address] Dr. Erasmo Smith HGB 10.5 g/dl Critically low 12.0-16.0 [facility] Comment on above: Performed By: #### C ANGELA #### [facility] [address] [address] [address] Erasmo Smith LYMPHM # 0.76 103/ul Critically low 1.20-3.80 [facility] Comment on above: Performed By: #### C ANGELA #### [facility] [address] [address] [address] Erasmo Smith LYMPHM% 4.0 % Critically low 20.5-60.0 [facility] Comment on above: Performed By: #### C ANGELA #### [facility] [address] [address] [address] Erasmo Smith MCH 25.9 pg Critically low 26.7-34.0 [facility] Comment on above: Performed By: #### C ANGELA #### [facility] [address] [place] [address] Dr. Erasmo Smith MCHC 32.1 g/dl Normal 29.9-35.2 [facility] Comment on above: Performed By: #### C ANGELA #### [facility] [address] [address] [address] Erasmo Smith MCV 80.5 fL Critically low 81.0-99.0 [facility] Comment on above: Performed By: #### C ANGELA #### [facility] [address] [place] [address] Dr. Erasmo Smith METAMYELOCYTE # Normal [facility] Comment on above: Performed By: #### C ANGELA #### [facility] [address] [address] [address] Erasmo Smith METAMYELOCYTE % Normal [facility] Comment on above: Performed By: #### C ANGELA #### [facility] [address] [address] [address] Erasmo Smith MONOM# 1.14 103/ul Critically high 0.30-0.80 [facility] Comment on above: Performed By: #### C ANGELA #### [facility] [address] [address] [address] Erasmo Smith MONOM% 6.0 % Normal 1.7-12.0 [facility] Comment on above: Performed By: #### C ANGELA #### [facility] [address] [place] [address] Dr. Erasmo Smith MPV 9.4 fL Critically low 9.5-13.5 [facility] Comment on above: Performed By: #### C ANGELA #### [facility] [address] [address] [address] Erasmo Smith MYELOCYTE # Normal [facility] Comment on above: Performed By: #### C ANGELA #### [facility] [address] [address] [address] Erasmo Smith MYELOCYTE % Normal [facility] Comment on above: Performed By: #### C ANGELA #### [facility] [address] [place] [address] Dr. Erasmo Smith NRBC Normal [facility] Comment on above: Performed By: #### C ANGELA #### [facility] [address] [place] [address] Dr. Erasmo Smith PLT 195 103/ul Normal 150-450 [facility] Comment on above: Performed By: #### C ANGELA #### [facility] [address] [place] [address] Dr. Erasmo Smith RBC 4.06 106/ul Critically low 4.20-5.40 [facility] Comment on above: Performed By: #### C ANGELA #### [facility] [address] [place] [address] Dr. Erasmo Smith RDW 17.7 % Critically high 11.0-15.0 [facility] Comment on above: Performed By: #### C ANGELA #### [facility] [address] [place] [address] Dr. Erasmo Smith SEG # 16.34 103/ul Critically high 1.40-6.50 [facility] Comment on above: Performed By: #### C ANGELA #### [facility] [address] [place] [address] Dr. Erasmo Smith SEG % 86.0 % Critically high 43.0-75.0 [facility] Comment on above: Performed By: #### Yamile MILLER #### [facility] [address] [place], [place] [address] Dr. Erasmo Smith WBC 19.0 103/ul Critically high 4.0-11.0 [facility] Comment on above: Performed By: #### Yamile MILLER #### [facility] [address] [place], [place] [address] HEAD WO CONon [...] No acute intracranial pathology. Electronically authenticated by: SALMOE MCCORMICK Date: 2022 14:50 Normal [facility] CULTURE BLOODon 2022 Microscopic examination of blood, culture Culture Observations: Aerobic and Anaerobic bottle positive. BCID: E. Coli Culture Observations: Refer to for VIOLET. Isolate 1 Escherichia coli Growth of Normal [facility] Comment on above: Performed By: #### B LDCX2 ####[facility] [address] [place], [place] [address]EnDr. Erasmo Smith Covid-19 PCR (CVDTB)on 11-11 SARS-CoV-2 (COVID-19) RNA EMILY+probe Ql (Unsp spec) Not detected Normal NOT DETECTED [facility] Comment on above: Result Comment: When [...] for this test is supported by the [place] of [employer] and Human Service's declaration that [...] used). Performed By: #### C MREP #### [facility] [address] [address] [address] Erasmo Smith LACTATE/LACTIC ACIDon 2022 Lactate [Moles/Vol] 1.2 mmol/L Normal 0.4-2.0 [facility] Comment on above: Performed By: #### L ACT ####[facility] [address] [place] [address]DrMeena Smith PH VENOUS BLOODon 2022 PCO2 VENOUS 37.8 mmHg Critically low 40.0-52.0 [facility] Comment on above: Performed By: #### P HVEN ####[facility] [address] [place] [id number]. Erasmo Smith pH VENOUS 7.417 Normal 7.330-7.430 [facility] Comment on above: Performed By: #### P HVEN ####[facility] [address]tiu[address] [place] [id number]. Erasmo Smith PROF 14(COMP METB)on 023 Albumin [Mass/Vol] 3.1 g/dL Critically low 3.4-5.0 [facility] Comment on above: Performed By: #### H ALEXSANDER, CMP ####[facility] [address]to[address] [place] [id number]. Erasmo Smith Albumin/Globulin [Mass ratio] 0.8 {ratio} Normal [facility] Comment on above: Performed By: #### H ALEXSANDER, CMP ####[facility] [address] [place] [address]Dr. Erasmo Smith ALP [Catalytic activity/Vol] 194 U/L Critically high 46-116 [facility] Comment on above: Performed By: #### H STROPN, CMP ####[facility] [address] [place] [address]Dr. Erasmo Smith ALT [Catalytic activity/Vol] 37 U/L Normal 14-59 [facility] Comment on above: Performed By: #### H STROPN, CMP ####[facility] [address] [place] [address]Dr. Erasmo Smith Anion gap [Moles/Vol] 14.6 mmol/L Normal [facility] Comment on above: Performed By: #### H STROPN, CMP ####[facility] [address] [place], [place] [address]Dr. Erasmo Smith AST [Catalytic activity/Vol] 32 U/L Normal 15-37 [facility] Comment on above: Performed By: #### H STROPN, CMP ####[facility] [address] [address] [place], [place] [address]Dr. Erasmo Smith Bilirubin [Mass/Vol] 1.0 mg/dL Normal 0.2-1.0 [facility] Comment on above: Performed By: #### H STROPN, CMP ####[facility] [address] [place], [place] [address]Dr. Erasmo Smith Calcium [Mass/Vol] 8.9 mg/dL Normal 8.5-10.1 [facility] Comment on above: Performed By: #### H STROPN, CMP ####[facility] [address] [place], [place] [address]Dr. Erasmo Smith Chloride [Moles/Vol] 103 mmol/L Normal 98-107 [facility] Comment on above: Performed By: #### H STROPN, CMP ####[facility] [address] [place], [place] [address]Dr. Erasmo Smith CO2 [Moles/Vol] 23.6 mmol/L Normal 21.0-32.0 [facility] Comment on above: Performed By: #### H STROPN, CMP ####[facility] [address] [place] [id number]. Erasmo Smith Creatinine [Mass/Vol] 0.69 mg/dL Normal 0.55-1.02 [facility] Comment on above: Performed By: #### H STROPN, CMP ####[facility] [address] [id number]. Erasmo Smith EGFR-AF CAMEROONIAN >60 Normal >=60 [facility] Comment on above: Performed By: #### H STROPN, CMP ####[facility] [address] [place] [id number]. Erasmo Smith EGFR-NON AF CAMEROONIAN >60 Normal >=60 [facility] Comment on above: Performed By: #### H STROPN, CMP ####[facility] [address] [address]Dr. Erasmo Smith Globulin (S) [Mass/Vol] 4.1 g/dL Normal [facility] Comment on above: Performed By: #### H STROPN, CMP ####[facility] [address] [address]Dr. Erasmo Smith Glucose [Mass/Vol] 121 mg/dL Critically high 74-106 [facility] Comment on above: Performed By: #### H STROPN, CMP ####[facility] [address] [place] [id number]. Erasmo Smith Potassium [Moles/Vol] 3.2 mmol/L Critically low 3.5-5.1 [facility] Comment on above: Performed By: #### H STROPN, CMP ####[facility] [address] [place] [id number]. Erasmo Smith Protein [Mass/Vol] 7.2 g/dL Normal 6.4-8.2 [facility] Comment on above: Performed By: #### H STROPN, CMP ####[facility] [address] [place] [id number]. Erasmo Smith Sodium [Moles/Vol] 138 mmol/L Normal 136-145 [facility] Comment on above: Performed By: #### H ALEXSANDER, CMP ####[facility] [address] [address]Dr. Erasmo Smith Urea nitrogen [Mass/Vol] 17.0 mg/dL Normal 7.0-18.0 [facility] Comment on above: Performed By: #### H ALEXSANDER, CMP ####[facility] [address] [place] [id number]. Erasmo Smith Urea nitrogen/Creatinine [Mass ratio] 24.6 mg/mg Normal [facility] Comment on above: Performed By: #### H ALEXSANDER, CMP ####[facility] [address] [address]Dr. Erasmo Smith PROTIMEon 2022 INR Coag (PPP) [Relative time] 3.58 {INR} Normal [facility] Comment on above: Performed By: #### P T, PTT #### [facility] [address] [place] [address] Dr. Erasmo Smith INR GUIDELINES SEE BELOW Normal [facility] Comment on above: Result Comment: ABNER RED INR: 2.0 - 3.0 CONDITIONS NOT LISTED BELOW 2.5 - 3.5 FOR PROSTHETIC HEART VALVE REPLACEMENT 2.5 - 3.5 RECURRENT THROMBOSIS Performed By: #### P T, PTT #### [facility] [address] [address] [address] Erasmo Smith PT Coag (PPP) [Time] 35.3 s Critically high 9.0-11.6 [facility] Comment on above: Performed By: #### P T, PTT #### [facility] [address] [address] [address] Erasmo Smith PTTon 2022 aPTT Coag (Bld) [Time] 40.3 s Critically high 22.3-36.2 [facility] Comment on above: Performed By: #### P T, PTT #### [facility] [address] [address] [address] Erasmo Smith TROPONIN, HIGH SENSITIVITYon 2022 HSTROP 194.7 pg/mL Critically high 4.0-51.3 [facility] Comment on above: Result Comment: CUT- OFF POINTS HAVE BEEN ESTABLISHED BASED ON THE FOURTH UNIVERSAL DEFINITIONS OF MYOCARDIAL INFARCTION. THE UPPER REFERENCE LIMIT (URL) OF TROPONIN, DEFINED THE 99TH PERCENTILE OF cTnI DISTRIBUTION IN A REFERENCE POPULATION, HAS BEEN CONFIRMED THE DECISION THRESHOLD FOR ND DIAGNOSIS. Performed By: #### C MREP #### [facility] [address] [address] [address] Erasmo Smith HSTROP 218.0 pg/mL Critically high 4.0-51.3 [facility] Comment on above: Result Comment: CUT- OFF POINTS HAVE BEEN ESTABLISHED BASED ON THE FOURTH UNIVERSAL DEFINITIONS OF MYOCARDIAL INFARCTION. THE UPPER REFERENCE LIMIT (URL) OF TROPONIN, DEFINED THE 99TH PERCENTILE OF cTnI DISTRIBUTION IN A REFERENCE POPULATION, HAS BEEN CONFIRMED THE DECISION THRESHOLD FOR ND DIAGNOSIS. Performed By: #### B CUSTOMER MANAGEMENT SPECIALIST #### [facility] [address] [address] [address] Erasmo Smith XR CHEST 1 Von [...] Normal [facility] MAMM SCREEN 3D TOÑITO CADon 11-26-2022 MG MAMM SCREEN 3D TOÑITO CAD Patient: BREANN STARKS Exam Date: 11/26/2022 : 1945 Gender:F Ordering : DR LUISANA JOHNSON . Admission #: [id number] Family : Order #: [id number] CLICK HERE TO VIEW EXAM RADIOLOGY REPORT [...] Treatments None Family Cancers None LOCATION: [facility] BREAST COMPOSITION: Heterogeneously dense,which may obscure [...] M.D. on 11/26/2022 at 14:13 Normal [facility] PROF 14(COMP METB)on 022 Albumin [Mass/Vol] 3.8 g/dL Normal 3.4-5.0 [facility] Comment on above: Performed By: #### C MREP #### [facility] [address] [place] [address] Dr. Erasmo Smith Albumin/Globulin [Mass ratio] 0.8 {ratio} Normal [facility] Comment on above: Performed By: #### C MREP #### [facility] [address] [place] [address] Dr. Erasmo Smith ALP [Catalytic activity/Vol] 102 U/L Normal 46-116 [facility] Comment on above: Performed By: #### C MREP #### [facility] [address] [address] [address] Erasmo Smith ALT [Catalytic activity/Vol] 47 U/L Normal 14-59 [facility] Comment on above: Performed By: #### C MREP #### [facility] [address] [address] [address] Erasmo Smith Anion gap [Moles/Vol] 12.5 mmol/L Normal [facility] Comment on above: Performed By: #### C MREP #### [facility] [address] [address] [address] Erasmo Smith AST [Catalytic activity/Vol] 36 U/L Normal 15-37 [facility] Comment on above: Performed By: #### C MREP #### [facility] [address] [address] [address] Erasmo Smith Bilirubin [Mass/Vol] 0.3 mg/dL Normal 0.2-1.0 [facility] Comment on above: Performed By: #### C MREP #### [facility] [address] [address] [address] Erasmo Smith Calcium [Mass/Vol] 8.9 mg/dL Normal 8.5-10.1 [facility] Comment on above: Performed By: #### C MREP #### [facility] [address] [address] [address] Erasmo Smith Chloride [Moles/Vol] 106 mmol/L Normal 98-107 [facility] Comment on above: Performed By: #### C MREP #### [facility] [address] [address] [address] Erasmo Smith CO2 [Moles/Vol] 26.9 mmol/L Normal 21.0-32.0 [facility] Comment on above: Performed By: #### C MREP #### [facility] [address] [address] [address] Erasmo Smith Creatinine [Mass/Vol] 0.79 mg/dL Normal 0.55-1.02 [facility] Comment on above: Performed By: #### C MREP #### [facility] [address] [address] [address] Erasmo Smith EGFR-AF CAMEROONIAN >60 Normal >=60 [facility] Comment on above: Performed By: #### C MREP #### [facility] [address] [address] [address] Erasmo Smith EGFR-NON AF CAMEROONIAN >60 Normal >=60 [facility] Comment on above: Performed By: #### C MREP #### [facility] [address] [address] [address] Erasmo Smith Globulin (S) [Mass/Vol] 4.6 g/dL Normal [facility] Comment on above: Performed By: #### C MREP #### [facility] [address] [address] [address] Erasmo Smith Glucose [Mass/Vol] 102 mg/dL Normal 74-106 [facility] Comment on above: Performed By: #### C MREP #### [facility] [address] [address] [address] Erasmo Smith Potassium [Moles/Vol] 4.4 mmol/L Normal 3.5-5.1 [facility] Comment on above: Performed By: #### C MREP #### [facility] [address] [place] [address] Dr. Erasmo Smith Protein [Mass/Vol] 8.4 g/dL Critically high 6.4-8.2 [facility] Comment on above: Performed By: #### C MREP #### [facility] [address] [place] [address] Dr. Erasmo Smith Sodium [Moles/Vol] 141 mmol/L Normal 136-145 [facility] Comment on above: Performed By: #### C MREP #### [facility] [address] [place] [address] Dr. Erasmo Smith Urea nitrogen [Mass/Vol] 28.0 mg/dL Critically high 7.0-18.0 [facility] Comment on above: Performed By: #### C MREP #### [facility] [address] [place] [address] Dr. Erasmo Smith Urea nitrogen/Creatinine [Mass ratio] 35.4 mg/mg Normal [facility] Comment on above: Performed By: #### C MREP #### [facility] [address] [place] [address] Dr. Erasmo Smith CBC AUTO DIFFon 07-12-2022 BASO # 0.1 103/ul Normal 0.0-0.1 [facility] Comment on above: Performed By: #### B CUSTOMER MANAGEMENT SPECIALIST #### [facility] [address] [address] [address] Erasmo Smith Basophils/100 WBC (Bld) 0.5 % Normal 0.2-2.0 [facility] Comment on above: Performed By: #### B CUSTOMER MANAGEMENT SPECIALIST #### [facility] [address] [place] [address] Dr. Erasmo Smith EO # 0.2 103/ul Normal 0.0-0.7 [facility] Comment on above: Performed By: #### B CUSTOMER MANAGEMENT SPECIALIST #### [facility] [address] [place] [address] Dr. Erasmo Smith Eosinophils/100 WBC (Bld) 2.5 % Normal 0.9-7.0 [facility] Comment on above: Performed By: #### B CUSTOMER MANAGEMENT SPECIALIST #### [facility] [address] [place] [address] Dr. Erasmo Smith Erythrocyte distribution width (RBC) [Ratio] 17.2 % Critically high 11.0-15.0 [facility] Comment on above: Performed By: #### B CUSTOMER MANAGEMENT SPECIALIST #### [facility] [address] [place] [address] Dr. Erasmo Smith Hematocrit (Bld) [Volume fraction] 35.0 % Critically low 36.0-48.0 [facility] Comment on above: Performed By: #### B CUSTOMER MANAGEMENT SPECIALIST #### [facility] [address] [place] [address] Dr. Erasmo Smith Hemoglobin (Bld) [Mass/Vol] 11.3 g/dL Critically low 12.0-16.0 [facility] Comment on above: Performed By: #### B CUSTOMER MANAGEMENT SPECIALIST #### [facility] [address] [place] [address] Dr. Erasmo Smith IG # 0.02 10e3/ul Normal 0.00-0.03 [facility] Comment on above: Performed By: #### B CUSTOMER MANAGEMENT SPECIALIST #### [facility] [address] [place] [address] Dr. Erasmo Smith IG % 0.2 % Normal 0.0-0.5 [facility] Comment on above: Performed By: #### B CUSTOMER MANAGEMENT SPECIALIST #### [facility] [address] [place] [address] Dr. Erasmo Smith LYMPH # 2.3 103/ul Normal 1.2-3.8 [facility] Comment on above: Performed By: #### B CUSTOMER MANAGEMENT SPECIALIST #### [facility] [address] [place] [address] Dr. Erasmo Smith Lymphocytes/100 WBC (Bld) 25.4 % Normal 20.5-60.0 [facility] Comment on above: Performed By: #### B CUSTOMER MANAGEMENT SPECIALIST #### [facility] [address] [place] [address] Dr. Erasmo Smith MANUAL DIFF REQ NO Normal [facility] Comment on above: Performed By: #### B CUSTOMER MANAGEMENT SPECIALIST #### [facility] [address] [place] [address] Dr. Erasmo Smith MCH (RBC) [Entitic mass] 25.5 pg Critically low 26.7-34.0 [facility] Comment on above: Performed By: #### B CUSTOMER MANAGEMENT SPECIALIST #### [facility] [address] [place] [address] Dr. Erasmo Smith MCHC (RBC) [Mass/Vol] 32.3 g/dL Normal 29.9-35.2 [facility] Comment on above: Performed By: #### B CUSTOMER MANAGEMENT SPECIALIST #### [facility] [address] [place] [address] Dr. Erasmo Smith MCV (RBC) [Entitic vol] 78.8 fL Critically low 81.0-99.0 [facility] Comment on above: Performed By: #### B CUSTOMER MANAGEMENT SPECIALIST #### [facility] [address] [place] [address] Dr. Erasmo Smith MONO # 0.7 103/ul Normal 0.3-0.8 [facility] Comment on above: Performed By: #### B CUSTOMER MANAGEMENT SPECIALIST #### [facility] [address] [place] [address] Dr. Erasmo Smith Monocytes/100 WBC (Bld) 7.5 % Normal 1.7-12.0 [facility] Comment on above: Performed By: #### B CUSTOMER MANAGEMENT SPECIALIST #### [facility] [address] [place] [address] Dr. Erasmo Smith NEUT # 5.9 103/ul Normal 1.4-6.5 [facility] Comment on above: Performed By: #### B CUSTOMER MANAGEMENT SPECIALIST #### [facility] [address] [place] [address] Dr. Erasmo Smith Neutrophils/100 WBC (Bld) 63.9 % Normal 43.0-75.0 [facility] Comment on above: Performed By: #### B CUSTOMER MANAGEMENT SPECIALIST #### [facility] [address] [place] [address] Dr. Erasmo Smith Platelet mean volume (Bld) [Entitic vol] 9.0 fL Critically low 9.5-13.5 [facility] Comment on above: Performed By: #### B CUSTOMER MANAGEMENT SPECIALIST #### [facility] [address] [place] [address] Dr. Erasmo Smith PLT 305 103/ul Normal 150-450 [facility] Comment on above: Performed By: #### B CUSTOMER MANAGEMENT SPECIALIST #### [facility] [address] [place] [address] Dr. Erasmo Smith RBC 4.44 106/ul Normal 4.20-5.40 [facility] Comment on above: Performed By: #### B CUSTOMER MANAGEMENT SPECIALIST #### [facility] [address] [place] [address] Dr. Erasmo Smith WBC 9.2 103/ul Normal 4.0-11.0 [facility] Comment on above: Performed By: #### B CUSTOMER MANAGEMENT SPECIALIST #### [facility] [address] [place] [address] CHEST WO CONon [...] by: PAULA BROWN Date: 2022-05-27 15:27 Normal [facility] HEMOGLOBINon 04-20-2022 Hemoglobin (Bld) [Mass/Vol] 10.6 g/dL Critically low 12.0-16.0 [facility] Comment on above: Performed By: #### H GB ####[facility] [address] [place] [address]Dr. Erasmo Smith CULTURE SPUTUMon 04-02-2022 CULTURE SPUTUM Isolate 1 Pseudomonas aeruginosa Light growth of ORGANISM 1 Pseudomonas aeruginosa ANTIBIOTIC M.I.C RX STATUS Piperacillin/Tazobacta m 8 S F Ceftazidime 2 S F Imipenem 1 S F Amikacin <=2 S F Gentamicin <=1 S F Tobramycin <=1 S F Ciprofloxacin <=0.25 S F Levofloxacin 0.25 S F Normal [facility] Comment on above: Performed By: #### S PUTCX ####[facility] [address] [place], [place] [address]Dr. Erasmo Smith CYTOLOGYon 03-30-2022 SENT TO REF LAB 03/31/22 Normal [facility] Comment on above: Performed By: #### C YTO #### [facility] [address] [place] [address] Dr. Erasmo Smith SPUTUM GRAM STAINon 03-30-20 COMMENTS Normal [facility] Comment on above: Performed By: #### B CUSTOMER MANAGEMENT SPECIALIST #### [facility] [address] [place] [address] Dr. Erasmo Smith DIPHTHEROIDS Normal [facility] Comment on above: Performed By: #### B CUSTOMER MANAGEMENT SPECIALIST #### [facility] [address] [address] [address] Erasmo Smith EPITHELIALS <25 Normal [facility] Comment on above: Performed By: #### B CUSTOMER MANAGEMENT SPECIALIST #### [facility] [address] [address] [address] Erasmo Smith FUNGAL ELEMENTS Normal [facility] Comment on above: Performed By: #### B CUSTOMER MANAGEMENT SPECIALIST #### [facility] [address] [address] [address] Erasmo Smith GRAM NEG BACILLI FEW Normal [facility] Comment on above: Performed By: #### B CUSTOMER MANAGEMENT SPECIALIST #### [facility] [address] [address] [address] Erasmo CINTRON NEG DIPPLOCOCCI Normal [facility] Comment on above: Performed By: #### B CUSTOMER MANAGEMENT SPECIALIST #### [facility] [address] [address] [address] Erasmo Smith GRAM POS BACILLI Normal [facility] Comment on above: Performed By: #### B CUSTOMER MANAGEMENT SPECIALIST #### [facility] [address] [address] [address] Erasmo Smith GRAM POSITIVE COCCI MANY Normal [facility] Comment on above: Performed By: #### B CUSTOMER MANAGEMENT SPECIALIST #### [facility] [address] [address] [address] Erasmo Smith WBC (Bld) [#/Vol] 10*3/uL Normal [facility] Comment on above: Performed By: #### B CUSTOMER MANAGEMENT SPECIALIST #### [facility] [address] [address] [address] Erasmo Smith SPUTUM CULTUREon 03-01-2022 Epithelial cells LM Ql (Urine sed) Few Normal [facility] Comment on above: Performed By: #### C XSPTUM ####[facility] [address] [place], [place] [address]Dr. Erasmo Smith Gram Stain Evaluation Comment Normal [facility] Comment on above: Result Comment: This specimen is of good quality and is acceptable for routine bacterial culture. Performed By: #### C XSPTUM ####[facility] [address] [address]Dr. Erasmo Smith Lower Respiratory Culture Final report Normal [facility] Comment on above: Performed By: #### C XSPTUM ####[facility] [address] [address]Dr. Erasmo Smith Result 1 Comment Normal [facility] Comment on above: Result Comment: Few gram positive cocci Performed By: #### C XSPTUM ####[facility] [address] [place], [place] [address]Dr. Erasmo Smith Result Comment: Rout ine respiratory adria Result 2 Normal [facility] Comment on above: Performed By: #### C XSPTUM ####[facility] [address] [place], [place] [address]Dr. Erasmo Smith Result 3 Normal [facility] Comment on above: Performed By: #### C XSPTUM ####[facility] [address] [place], [place] [address]Dr. Erasmo Smith Result 4 Normal [facility] Comment on above: Performed By: #### C XSPTUM ####[facility] [address] [place], [place] [address]Dr. Erasmo Smith White Blood Cells Few Normal [facility] Comment on above: Performed By: #### C XSPTUM ####[facility] [address] [place], [place] [address]DrMeena Smith BNPon 02-24-2022 Natriuretic peptide B (Bld) [Mass/Vol] 319.0 pg/mL Normal <=900.0 [facility] Comment on above: Performed By: #### B CUSTOMER MANAGEMENT SPECIALIST #### [facility] [address] [place] [address] Dr. Erasmo Smith CBC AUTO DIFFon 02-24-2022 BASO # 0.1 103/ul Normal 0.0-0.1 [facility] Comment on above: Performed By: #### C MREP #### [facility] [address] [place] [address] Dr. Erasmo Smith Basophils/100 WBC (Bld) 0.5 % Normal 0.2-2.0 [facility] Comment on above: Performed By: #### C MREP #### [facility] [address] [place] [address] Dr. Erasmo Smith EO # 0.3 103/ul Normal 0.0-0.7 [facility] Comment on above: Performed By: #### C MREP #### [facility] [address] [place] [address] Dr. Erasmo Smith Eosinophils/100 WBC (Bld) 3.1 % Normal 0.9-7.0 [facility] Comment on above: Performed By: #### C MREP #### [facility] [address] [place] [address] Dr. Erasmo Smith Erythrocyte distribution width (RBC) [Ratio] 15.1 % Critically high 11.0-15.0 [facility] Comment on above: Performed By: #### C MREP #### [facility] [address] [place] [address] Dr. Erasmo Smith Hematocrit (Bld) [Volume fraction] 33.9 % Critically low 36.0-48.0 [facility] Comment on above: Performed By: #### C MREP #### [facility] [address] [place] [address] Dr. Erasmo Smith Hemoglobin (Bld) [Mass/Vol] 10.7 g/dL Critically low 12.0-16.0 [facility] Comment on above: Performed By: #### C MREP #### [facility] [address] [place] [address] Dr. Erasmo Smith IG # 0.03 10e3/ul Normal 0.00-0.03 [facility] Comment on above: Performed By: #### C MREP #### [facility] [address] [place] [address] Dr. Erasmo Smith IG % 0.3 % Normal 0.0-0.5 [facility] Comment on above: Performed By: #### C MREP #### [facility] [address] [place] [address] Dr. Erasmo Smith LYMPH # 2.8 103/ul Normal 1.2-3.8 [facility] Comment on above: Performed By: #### C MREP #### [facility] [address] [address] [address] Erasmo Smith Lymphocytes/100 WBC (Bld) 30.6 % Normal 20.5-60.0 [facility] Comment on above: Performed By: #### C MREP #### [facility] [address] [address] [address] Erasmo Smith MANUAL DIFF REQ NO Normal [facility] Comment on above: Performed By: #### C MREP #### [facility] [address] [place] [address] Dr. Erasmo Smith MCH (RBC) [Entitic mass] 26.9 pg Normal 26.7-34.0 [facility] Comment on above: Performed By: #### C MREP #### [facility] [address] [place] [address] Dr. Erasmo Smith MCHC (RBC) [Mass/Vol] 31.6 g/dL Normal 29.9-35.2 [facility] Comment on above: Performed By: #### C MREP #### [facility] [address] [place] [address] Dr. Erasmo Smith MCV (RBC) [Entitic vol] 85.2 fL Normal 81.0-99.0 [facility] Comment on above: Performed By: #### C MREP #### [facility] [address] [place] [address] Dr. Erasmo Smith MONO # 0.7 103/ul Normal 0.3-0.8 [facility] Comment on above: Performed By: #### C MREP #### [facility] [address] [place] [address] Dr. Erasmo Smith Monocytes/100 WBC (Bld) 7.9 % Normal 1.7-12.0 [facility] Comment on above: Performed By: #### C MREP #### [facility] [address] [place] [address] Dr. Erasmo Smith NEUT # 5.3 103/ul Normal 1.4-6.5 [facility] Comment on above: Performed By: #### C MREP #### [facility] [address] [place], [place] [address] Dr. Erasmo Smith Neutrophils/100 WBC (Bld) 57.6 % Normal 43.0-75.0 [facility] Comment on above: Performed By: #### C MREP #### [facility] [id number] Erasmo Smith Platelet mean volume (Bld) [Entitic vol] 9.0 fL Critically low 9.5-13.5 [facility] Comment on above: Performed By: #### C MREP #### [facility] [address] [address] [address] Erasmo Smith PLT 249 103/ul Normal 150-450 [facility] Comment on above: Performed By: #### C MREP #### [facility] [address] [address] [address] Erasmo Smith RBC 3.98 106/ul Critically low 4.20-5.40 [facility] Comment on above: Performed By: #### C MREP #### [facility] [id number] Erasmo Smith WBC 9.1 103/ul Normal 4.0-11.0 [facility] Comment on above: Performed By: #### C MREP #### [facility] [address] [address] [address] Erasmo Smith CTA CHEST WO W [...] by: PAULA BROWN Date: 2022-02-24 18:24 Normal [facility] D-DIMERon 02-24-2022 D-DIMER 1.36 mg/L FEU Critically high <=0.59 [facility] [facility] Comment on above: Performed By: #### D DIM #### [facility] [address] [address] [address] Erasmo Smith D-DIMER COMMENTS SEE BELOW Normal [facility] Comment on above: Result Comment: Incr [...] hospitalization. Performed By: #### D DIM #### [facility] [address] [address] [address] Erasmo Smith PROF 14(COMP METB)on 022 Albumin [Mass/Vol] 3.6 g/dL Normal 3.4-5.0 [facility] Comment on above: Performed By: #### C MREP #### [facility] [address] [address] [address] Erasmo Smith Albumin/Globulin [Mass ratio] 0.8 {ratio} Normal [facility] Comment on above: Performed By: #### C MREP #### [facility] [address] [address] [address] Erasmo Smith ALP [Catalytic activity/Vol] 95 U/L Normal 46-116 [facility] Comment on above: Performed By: #### C MREP #### [facility] [address] [address] [address] Erasmo Smith ALT [Catalytic activity/Vol] 45 U/L Normal 14-59 [facility] Comment on above: Performed By: #### C MREP #### [facility] [address] [address] [address] Erasmo Smith Anion gap [Moles/Vol] 15.9 mmol/L Normal Th [facility] Comment on above: Performed By: #### C MREP #### [facility] [address] [place] [address] Dr. Erasmo Smith AST [Catalytic activity/Vol] 33 U/L Normal 15-37 [facility] Comment on above: Performed By: #### C MREP #### [facility] [address] [address] [address] Erasmo Smith Bilirubin [Mass/Vol] 0.5 mg/dL Normal 0.2-1.0 [facility] Comment on above: Performed By: #### C MREP #### [facility] [address] [place] [address] Dr. Erasmo Smith Calcium [Mass/Vol] 9.1 mg/dL Normal 8.5-10.1 [facility] Comment on above: Performed By: #### C MREP #### [facility] [address] [address] [address] Erasmo Smith Chloride [Moles/Vol] 103 mmol/L Normal 98-107 [facility] Comment on above: Performed By: #### C MREP #### [facility] [address] [address] [address] Erasmo Smith CO2 [Moles/Vol] 25.1 mmol/L Normal 21.0-32.0 [facility] Comment on above: Performed By: #### C MREP #### [facility] [address] [address] [address] Erasmo Smith Creatinine [Mass/Vol] 0.77 mg/dL Normal 0.55-1.02 [facility] Comment on above: Performed By: #### C MREP #### [facility] [address] [address] [address] Erasmo Smith EGFR-AF CAMEROONIAN >60 Normal >=60 [facility] Comment on above: Performed By: #### C MREP #### [facility] [address] [address] [address] Erasmo Smith EGFR-NON AF CAMEROONIAN >60 Normal >=60 [facility] Comment on above: Performed By: #### C MREP #### [facility] [address] [place] [address] Dr. Erasmo Smith Globulin (S) [Mass/Vol] 4.3 g/dL Normal [facility] Comment on above: Performed By: #### C MREP #### [facility] [address] [place] [address] Dr. Erasmo Smith Glucose [Mass/Vol] 92 mg/dL Normal 74-106 [facility] Comment on above: Performed By: #### C MREP #### [facility] [address] [place] [address] Dr. Erasmo Smith Potassium [Moles/Vol] 4.0 mmol/L Normal 3.5-5.1 [facility] Comment on above: Performed By: #### C MREP #### [facility] [address] [place] [address] Dr. Erasmo Smith Protein [Mass/Vol] 7.9 g/dL Normal 6.4-8.2 [facility] Comment on above: Performed By: #### C MREP #### [facility] [address] [place] [address] Dr. Erasmo Smith Sodium [Moles/Vol] 140 mmol/L Normal 136-145 [facility] Comment on above: Performed By: #### C MREP #### [facility] [address] [address] [address] Erasmo Smith Urea nitrogen [Mass/Vol] 17.0 mg/dL Normal 7.0-18.0 [facility] Comment on above: Performed By: #### C MREP #### [facility] [address] [address] [address] Erasmo Smith Urea nitrogen/Creatinine [Mass ratio] 22.1 mg/mg Normal [facility] Comment on above: Performed By: #### C MREP #### [facility] [address] [address] [address] Erasmo Smith PROTIMEon 02-24-2022 INR Coag (PPP) [Relative time] 2.28 {INR} Normal [facility] Comment on above: Performed By: #### P T, PTT ####[facility] [address] [address]Dr. Erasmo Smith INR GUIDELINES SEE BELOW Normal [facility] Comment on above: Result Comment: ABNER RED INR: 2.0 - 3.0 CONDITIONS NOT LISTED BELOW 2.5 - 3.5 FOR PROSTHETIC HEART VALVE REPLACEMENT 2.5 - 3.5 RECURRENT THROMBOSIS Performed By: #### P T, PTT ####[facility] [id number] [address]Dr. Erasmo Smith PT Coag (PPP) [Time] 23.3 s Critically high 9.0-11.6 [facility] Comment on above: Performed By: #### P T, PTT ####[facility] [id number] [address]Dr. Erasmo Smith PTTon 02-24-2022 aPTT Coag (Bld) [Time] 34.7 s Normal 22.3-36.2 [facility] Comment on above: Performed By: #### P T, PTT ####[facility] [address] [address]Dr. Erasmo Smith TROPONIN, HIGH SENSITIVITYon 02-24-2022 HSTROP 6.6 pg/mL Normal 4.0-51.3 [facility] Comment on above: Result Comment: CUT- OFF POINTS HAVE BEEN ESTABLISHED BASED ON THE FOURTH UNIVERSAL DEFINITIONS OF MYOCARDIAL INFARCTION. THE UPPER REFERENCE LIMIT (URL) OF TROPONIN, DEFINED THE 99TH PERCENTILE OF cTnI DISTRIBUTION IN A REFERENCE POPULATION, HAS BEEN CONFIRMED THE DECISION THRESHOLD FOR ND DIAGNOSIS. Performed By: #### C MREP #### [facility] [address] [place], [place] [address] Dr. Erasmo Smith PROTHROMBIN TIMEon INR Coag (PPP) [Relative time] 1.2 {INR} High 0.86-1.16 [facility] Comment on above: Result Comment: INR Theraputic Range: 2.0-3.[address] [facility] [address] [facility] [place] [address] PT Coag (PPP) [Time] 12.7 s Normal 9.3-12.7 [facility] ANTICOAGULANT COUMADIN Normal [facility] Vital Signs Date Time Vital Sign Value Performing Clinician Faci lity 12-17-2024 10:58-0400 Body height 149.9 cm Renny Hansen MD Work Phone: [facility] 12-17-2024 10:58-0400 Body mass index (BMI) [Ratio] 44.84 kg/m2 Renny Hansen MD Work Phone: [facility] 12-17-2024 10:58-0400 Body weight 100.7 kg Renny Hansen MD Work Phone: [facility] 12-17-2024 10:58-0400 Diastolic blood pressure 68 mm[Hg] Renny Hansen MD Work Phone: [facility] 12-17-2024 10:58-0400 Heart rate 75 /min Renny Hansen MD Work Phone: [facility] 12-17-2024 10:58-0400 SaO2% (BldA) [Mass fraction] 95 % Renny Hansen MD Work Phone: [facility] 12-17-2024 10:58-0400 Systolic blood pressure 130 mm[Hg] Renny Hansen MD Work Phone: [facility] 10-29-2024 14:47-0500 Body weight 98.42 kg Renny Hansen II Work Phone: [facility] 10-29-2024 14:47-0500 Diastolic blood pressure 65 mm[Hg] Renny Hansen II Work Phone: [facility] 10-29-2024 14:47-0500 Heart rate 66 /min Renny Hansen II Work Phone: [facility] 10-29-2024 14:47-0500 Respiratory rate 20 /min Renny Hansen II Work Phone: [facility] 10-29-2024 14:47-0500 SaO2% (BldA) [Mass fraction] 97 % Renny Hansen II Work Phone: [facility] 10-29-2024 14:47-0500 Systolic blood pressure 150 mm[Hg] Renny Hansen II Work Phone: [facility] 10-17-2024 11:35-0500 Body height 149.9 cm Renny [...] 101.15 kg Dmitriy Duque DO Work Phone: [facility] 10-04-2024 14:56-0500 Diastolic blood pressure 70 mm[Hg] Dmitriy Duque DO Work Phone: [facility] 10-04-2024 14:56-0500 Systolic blood pressure 120 mm[Hg] Dmitriy Duque DO Work Phone: [facility] 09-25-2024 11:13-0500 Body height 149.86 cm Renny Hansen II Work Phone: [facility] 09-25-2024 11:13-0500 Body mass index (BMI) [Ratio] 44.6 kg/m2 Renny Hansen II Work Phone: [facility] 09-25-2024 11:13-0500 Body temperature 97.3 [degF] Renny Hansen II Work Phone: [facility] 09-25-2024 11:13-0500 Body weight 100.24 kg Renny Hansen II Work Phone: [facility] 09-25-2024 11:13-0500 Diastolic blood pressure 69 mm[Hg] Renny Hansen II Work Phone: [facility] 09-25-2024 11:13-0500 Heart rate 72 /min Renny Hansen II Work Phone: [facility] 09-25-2024 11:13-0500 Respiratory rate 16 /min Renny Hansen II Work Phone: [facility] 09-25-2024 11:13-0500 SaO2% (BldA) [Mass fraction] 98 % Renny Hansen II Work Phone: [facility] 09-25-2024 11:13-0500 Systolic blood pressure 173 mm[Hg] Renny Hansen II Work Phone: [facility] 09-19-2024 15:12-0500 Body height 149.9 cm Luisana Leal CUSTOMER MANAGEMENT SPECIALIST Work Phone: [facility] 09-19-2024 15:12-0500 Body mass index (BMI) [Ratio] 44.07 kg/m2 Luisana Leal CUSTOMER MANAGEMENT SPECIALIST Work Phone: [facility] 09-19-2024 15:12-0500 Body weight 98.97 kg Luisana Leal CUSTOMER MANAGEMENT SPECIALIST Work Phone: [facility] 09-19-2024 15:12-0500 Diastolic blood pressure 68 mm[Hg] Luisana Leal CUSTOMER MANAGEMENT SPECIALIST Work Phone: [facility] 09-19-2024 15:12-0500 Heart rate 63 /min Luisana Leal CUSTOMER MANAGEMENT SPECIALIST Work Phone: [facility] 09-19-2024 15:12-0500 Respiratory rate 18 /min Luisana Leal CUSTOMER MANAGEMENT SPECIALIST Work Phone: [facility] 09-19-2024 15:12-0500 SaO2% (BldA) [Mass fraction] 95 % Luisana Leal CUSTOMER MANAGEMENT SPECIALIST Work Phone: [facility] 09-19-2024 15:12-0500 Systolic blood pressure 128 mm[Hg] Luisana Leal CUSTOMER MANAGEMENT SPECIALIST Work Phone: [facility] 09-18-2024 10:09-0500 Body mass index (BMI) [Ratio] 43.83 kg/m2 Salome Brightett DO Work Phone: [facility] [...] % [place] Jose Roberto DO Work Phone: [facility] 09-18-2024 10:09-0500 Systolic blood pressure 136 mm[Hg] Salome Cid DO Work Phone: [facility] 09-10-2024 13:00-0500 Body temperature 97.2 [degF] Renny Hansen II Work Phone: [facility] 09-10-2024 13:00-0500 Diastolic blood pressure 67 mm[Hg] Renny Hansen II Work Phone: [facility] 09-10-2024 13:00-0500 Heart rate 72 /min Renny Hansen II Work Phone: [facility] 09-10-2024 13:00-0500 Respiratory rate 19 /min Renny Hansen II Work Phone: [facility] 09-10-2024 13:00-0500 SaO2% (BldA) [Mass fraction] 96 % Renny Hansen II Work Phone: [facility] 09-10-2024 13:00-0500 Systolic blood pressure 157 mm[Hg] Renny Hansen II Work Phone: [facility] 08-24-2024 13:00-0500 Body height 149.86 cm Renny Hansen II Work Phone: [facility] 08-24-2024 13:00-0500 Body mass index (BMI) [Ratio] 45.4 kg/m2 Renny Hansen II Work Phone: [facility] 08-24-2024 13:00-0500 Body temperature 97.8 [degF] Renny Hansen II Work Phone: [facility] 08-24-2024 13:00-0500 Body weight 102.05 kg Renny Hansen II Work Phone: [facility] 08-24-2024 13:00-0500 Diastolic blood pressure 69 mm[Hg] Renny Hansen II Work Phone: [facility] 08-24-2024 13:00-0500 Heart rate 61 /min Renny Hansen II Work Phone: [facility] 08-24-2024 13:00-0500 Respiratory rate 16 /min Renny Hansen II Work Phone: [facility] 08-24-2024 13:00-0500 SaO2% (BldA) [Mass fraction] 98 % Renny Hansen II Work Phone: [facility] 08-24-2024 13:00-0500 Systolic blood pressure 137 mm[Hg] Renny Hansen II Work Phone: [facility] 08-16-2024 10:33-0500 Body height 149.9 cm Renny [...] [facility] 08-16-2024 10:33-0500 Heart rate 66 /min eRnny Hansen MD Work [facility]: [facility] [...] pressure 124 mm[Hg] Eleanor SANTOS Work Phone: [facility] 07-05-2024 [...] 13:46-0400 Body height 149.9 cm Monster Calvillo CUSTOMER MANAGEMENT SPECIALIST Work Phone: [facility] 05-31-2024 13:46-0400 Body mass index (BMI) [Ratio] 47.87 kg/m2 Monster Calvillo CUSTOMER MANAGEMENT SPECIALIST Work Phone: [facility] 05-31-2024 13:46-0400 Body temperature 98.4 [degF] Monster Calvillo CUSTOMER MANAGEMENT SPECIALIST Work Phone: [facility] 05-31-2024 13:46-0400 Body weight 107.5 kg Monster Calvillo CUSTOMER MANAGEMENT SPECIALIST Work Phone: [facility] 05-31-2024 13:46-0400 Diastolic blood pressure 80 mm[Hg] Monster Kilpatrickpatrick CUSTOMER MANAGEMENT SPECIALIST Work Phone: [facility] 05-31-2024 13:46-0400 Heart rate 73 /min Monster Kilpatrickpatrick CUSTOMER MANAGEMENT SPECIALIST Work Phone: [facility] 05-31-2024 13:46-0400 SaO2% (BldA) [Mass fraction] 95 % Monster Kilpatrickpatrick CUSTOMER MANAGEMENT SPECIALIST Work Phone: [facility] 05-31-2024 13:46-0400 Systolic blood pressure 140 mm[Hg] Monster Kilpatrickpatrick CUSTOMER MANAGEMENT SPECIALIST Work Phone: [facility] 05-22-2024 13:17-0400 Body height 149.9 cm Boo Sherwin PA-C Work Phone: [facility] 05-22-2024 13:17-0400 Body mass index (BMI) [Ratio] 44.43 kg/m2 Boo Sherwin PA-C Work Phone: [facility] 05-22-2024 13:17-0400 Body weight 99.79 kg Boo Sherwin PA-C Work Phone: [facility] 03-02-2024 11:51-0400 Blood Pressure Location Jair NILL [facility] 03-02-2024 11:51-0400 Diastolic blood pressure 75 mm[Hg] Jair PARKL [facility] 03-02-2024 11:51-0400 Heart rate 71 /min Jair NILL [facility] 03-02-2024 11:51-0400 Respiratory rate 16 /min Jair NILL [facility] 03-02-2024 11:51-0400 Systolic blood pressure 118 mm[Hg] [facility] 10-07-2021 16:00-0500 Body height 146.69 cm Hong Nevarez Other [employer] Other 10-07-2021 16:00-0500 Body mass index (BMI) [Ratio] 51.01 kg/m2 Hong Nevarez Other [employer] Other 10-07-2021 16:00-0500 Body weight 109.77 kg Hong Nevarez Other [employer] Other 08-26-2021 15:15-0500 Body height 146.69 cm Hong Nevarez Other [employer] Other 08-26-2021 15:15-0500 Body mass index (BMI) [Ratio] 51.07 kg/m2 Hong Nevarez Other [employer] Other 08-26-2021 15:15-0500 Body weight 109.91 kg Hong Nevarez Other [employer] Other Encounters Encounter Date Encounter Type Care Provider Facility Start: 01-22-2025 End: 01-22-2025 ambulatory DMITRIY HENNESSY [facility] Start: 01-17-2025 End: 01-17-2025 ambulatory JAIR FLORIAN [facility] Start: 01-03-2025 ambulatory Renny Hansen Facility:[facility] Start: 01-01-2025 ambulatory [facility] Start: 12-24-2024 End: 12-24-2024 ambulatory [facility] Start: 12-21-2024 End: 12-21-2024 Clinisync Result Encounter [...] 12-17-2024 End: 12-17-2024 ambulatory Miguel Murphy MD Facility:[facility] Start: 11-27-2024 ambulatory [facility] Start: 11-27-2024 ambulatory [facility] Start: 11-13-2024 End: 11-13-2024 ambulatory [facility] Start: 11-09-2024 End: 11-12-2024 Telephone encounter [...] Registered Recurring Renny batista II Work Phone: [facility] Work Phone: Start: 10-29-2024 End: 10-29-2024 ambulatory Renny Hansen II Work Phone: [facility] Work Phone: Start: 10-29-2024 End: 10-29-2024 Patient encounter procedure Renny Hansen II Work Phone: [facility] Work Phone: Start: 10-29-2024 End: 10-29-2024 ambulatory Miguel Murphy MD Facility:[facility] Start: 10-24-2024 End: 10-24-2024 Patient encounter procedure Renny Hansen II Work Phone: [facility] [place] Work Phone: Start: 10-24-2024 End: 10-24-2024 ambulatory Renny Hansen II Work Phone: [facility] Work Phone: Start: 10-24-2024 End: 10-24-2024 Office outpatient visit 15 minutes Jr. 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, initial encounter ([facility]) Start: 10-24-2024 End: 10-24-2024 ambulatory SAKINA MARIO [...] encounter procedure Renny Hansen II Work Phone: [facility] Start: 10-16-2024 End: 10-16-2024 ambulatory Renny Hansen II Work Phone: [facility] Work Phone: Start: 10-09-2024 End: [...] End: 10-02-2024 External Result Encounter Katharina Toledo CUSTOMER MANAGEMENT SPECIALIST Work Phone: [facility] External Department Unsolicited Start: 10-02-2024 End: 10-02-2024 External Result Encounter Katharina Toledo CUSTOMER MANAGEMENT SPECIALIST Work Phone: [facility] External Department Unsolicited Start: 10-02-2024 Registered Recurring Renny batista II Work Phone: [facility] Work Phone: Start: 09-25-2024 End: 09-25-2024 ambulatory Renny Hansen II Work Phone: [facility] Work Phone: Start: 09-25-2024 End: 09-25-2024 Patient encounter procedure Renny Hansen II Work Phone: [facility] Work Phone: Start: 09-24-2024 End: 09-24-2024 ambulatory [facility] Start: 09-19-2024 End: 09-19-2024 ambulatory LUISANA LEAL Not Available Start: 09-19-2024 End: 09-19-2024 Office outpatient visit 25 minutes Luisana Leal CUSTOMER MANAGEMENT SPECIALIST Work Phone: [facility] Comment on above: Acute cystitis with hematuria [...] 09-10-2024 End: 09-10-2024 ambulatory Miguel Murphy MD Facility:[facility] Start: 08-24-2024 End: 08-24-2024 Patient encounter procedure Renny Hansen II Work Phone: [facility] [place] Work Phone: Start: 08-24-2024 End: 08-24-2024 ambulatory Renny Hansen Facility:[facility] Start: 08-24-2024 End: 08-24-2024 External Result Encounter Katharina Toledo CUSTOMER MANAGEMENT SPECIALIST Work Phone: [facility] External Department Unsolicited Start: 08-24-2024 End: 08-24-2024 External Result Encounter Katharina Toledo NP Work Phone: [facility] External Department Unsolicited Start: 08-24-2024 End: 08-24-2024 Patient encounter procedure Renny Tyrone II Work Phone: [facility] Work Phone: Start: 08-20-2024 End: 08-20-2024 ambulatory Miguel Murphy MD Facility:[facility] Start: 08-16-2024 End: 08-16-2024 Bamboo [...] End: 08-02-2024 Office outpatient visit 25 minutes eRnny Hansen MD Work Phone: [facility] [...] 07-24-2024 Office outpatient visit 25 minutes Eleanor SANTSO Work Phone: [facility] Comment on [...] Not Available Start: 07-18-2024 End: 07-18-2024 ambulatory [facility] Start: 07-16-2024 End: 07-16-2024 Refill Monster [...] Not Available Start: 06-19-2024 End: 06-19-2024 ambulatory [facility] Start: 06-18-2024 End: 06-18-2024 Refill Monster Calvillo CUSTOMER MANAGEMENT SPECIALIST Work Phone: [facility] Comment on above: Acute on chronic nisa stolic (congestive) heart failure (CMS/HCC) Start: 05-31-2024 End: 05-31-2024 Bamboo flowsheet Monster Calvillo CUSTOMER MANAGEMENT SPECIALIST Work Phone: [facility] Start: 05-31-2024 End: 05-31-2024 Bamboo flowsheet Monster Calvillo CUSTOMER MANAGEMENT SPECIALIST Work Phone: [facility] Start: 05-31-2024 End: 05-31-2024 Office outpatient visit 15 minutes Monster Calvillo CUSTOMER MANAGEMENT SPECIALIST Work Phone: [facility] Comment on [...] procedure MD Shaikh Denis Work Phone: [facility] Work Phone: Start: 05-02-2024 End: 05-02-2024 ambulatory MD Shaikh Denis Work Phone: [facility] Work Phone: Start: 04-16-2024 End: 04-16-2024 ambulatory PEDRO PABLO CRUZ Not Available Start: 04-16-2024 End: 04-16-2024 ambulatory Miguel Murphy MD Facility:[facility] Start: 04-11-2024 End: 04-11-2024 ambulatory SHAIKH CIRA Not Available Start: 04-10-2024 End: 04-10-2024 Patient encounter procedure MD Shaikh Denis Work Phone: [facility] [place] Work Phone: Start: 04-10-2024 End: 04-10-2024 ambulatory MD Shaikh Denis Work Phone: [facility] Work Phone: Start: 04-02-2024 End: 04-02-2024 ambulatory Miguel Murphy MD Facility:[facility] Start: 03-29-2024 End: 03-29-2024 Patient encounter procedure MD Shaikh Denis Work Phone: [facility] Start: 03-29-2024 End: 03-29-2024 ambulatory MD Shaikh Denis Work Phone: [facility] Work Phone: Start: 03-12-2024 End: 03-12-2024 ambulatory SHAIKH CIRA Not Available Start: 03-07-2024 End: 03-07-2024 ambulatory Jair ALEXANDER Facility:[id number] Start: 03-02-2024 End: 03-02-2024 ambulatory Jair ALEXANDER Facility:[facility] Start: 03-02-2024 End: 03-02-2024 Patient encounter procedure Jair ALEXANDER [facility] Start: 03-01-2024 ambulatory Jair ALEXANDER Facility:[facility] [...] ambulatory MD Shaikh Denis Work Phone: [facility] Work Phone: Start: 10-11-2023 End: 10-11-2023 Patient encounter procedure MD Shaikh Denis Work Phone: [facility] [place] Work Phone: Start: 09-08-2023 End: 09-08-2023 ambulatory MD Shaikh Denis Work Phone: [facility] Work Phone: Start: 09-08-2023 End: 09-08-2023 Patient encounter procedure MD Shaikh Denis Work Phone: [facility] Start: 09-06-2023 Patient encounter [...] Start: 10-13-2022 End: 11-10-2022 ambulatory SAHU H KTAARZYNAWAAlysa Facility:[facility] Start: 09-13-2022 End: 10-13-[address] LUISANA JOHNSON . Facility:[facility] Start: 08-12-2022 End: 09-12-[address] LUISANA JOHNSON . Facility:[facility] Start: 07-13-2022 End: 07-14-2022 ambulatory LUIZ SAM . Facility:[facility] Start: 07-13-2022 End: 07-14-[address] LUSIANA JOHNSON . Facility:[facility] Start: 07-13-2022 End: 08-11-2022 [...] 10-07-2021 End: 10-07-2021 ambulatory Hong Nevarez Other [employer] Other Start: 10-07-2021 Office outpatient vi sit 15 minutes Hong Nevarez [facility] Start: 08-26-2021 End: 08-26-2021 ambulatory Hong Nevarez Other [employer] Other Start: 08-26-2021 Office outpatient ne w 45 minutes Hong Nevarez [facility] Start: 10-11-2020 End: 10-13-2020 Evaluation and management of inpatient [facility] Facility:[facility] Procedures Date Procedure Procedure Detail [...] Start: 10-02-2024 ISTAT XRAY CRE Katharina herrera CUSTOMER MANAGEMENT SPECIALIST Work Phone: Start: 10-02-2024 CT of left shoulder with contrast Renny Hansen II Work Phone: Start: 09-19-2024 Urnls dip stick/tabl et rgnt non-auto w/o micrscp Luisana Leal CUSTOMER MANAGEMENT SPECIALIST Work Phone: Start: 08-24-2024 Complete blood count with white cell differential, automated Katharina Toledo CUSTOMER MANAGEMENT SPECIALIST Work Phone: Start: 07-24-2024 ALL CBC WITH [...] of left tota l knee replacement Jair PARKSoweso Appendectomy Jair ALEXANDER Arthroscopy of knee Jair PARKSoweso Comment on above: 06/2012 Arthroscopy of shoulder Brice ALEXANDER Comment on above: left shoulder tear r epaired 08/25 Cardiac catheter (ph ysical object) Jair PARKSoweso Comment on above: 12/21/ mild CAD Colonoscopy Jair PARKSoweso Comment on above: 2012 repeat 10 years Ligation of fallopian tube M armando PARKSoweso Repair of musculoten dinous cuff of shoulder Jair [employer] Comment on above: right Total abdominal hyst erectomy with bilateral salpingo-oophorectomy Jair PARKTriton Plan of Treatment Date Care Activity Detail Author Start: 09-12-2027 Screening for malign ant neoplasm of colon [facility] Start: 10-17-2025 Medicare Annual Well ness (AWV) Medicare Annual Wellness (AWV) [facility] Start: 02-18-2025 End: 02-18-2025 Patient encounter procedure 02/18/2025 11:30 AM EDT Office Visit [facility] [address] [facility] [address] [place] [phone] Renny Hansen MD [address] [facility] 110 [place] [address] [facility] Start: 01-14-2025 End: 12-15-2025 [...] [facility] [address] [place] [phone] Dmitriy Duque, DO [address] [place] [address] [facility] Start: 10-24-2024 End: 10-24-2024 Patient encounter procedure 10/24/2024 2:15 PM EST Office Visit [facility] [address] [place] [address] Jr. Sakina Cardenas, DO 112 [facility] [address] [place] [address] Injury of left shoulder and upper arm, [...] [address] [place] [phone] Dmitriy Duque, DO [address] [place] [address] [facility] Start: 09-25-2024 Patient referral [facility] Work Phone: Start: 09-19-2024 End: 09-19-2024 Patient encounter procedure 09/19/2024 3:00 PM EST Office Visit [facility] [address] [place] [address] Luisana Leal NP [address] [place] [address] [facility] Start: 09-19-2024 End: 09-19-2025 URINARY TRACT INFECTION (HTRX) URINARY TRACT INFECTION (HTRX) Lab Routine Burning with urination Expected: 09/19/2024 (Approximate), Expires: 09/19/2025 [facility] Work Phone: Comment on above: Expected: 09/19/2024 (Approximate), Expires: 09/19/2025 Start: 09-18-2024 End: 09-18-2024 Patient encounter procedure 09/18/2024 10:15 AM EST Office Visit [facility] [address] [place] [phone] Salome Cid, [address] [place] [address] Neck pain on left side [facility] Comment on above: Neck pain on left si de Start: 09-14-2024 End: 09-14-2024 Patient encounter procedure 09/14/2024 10:00 AM EST Office Visit [facility] [address] [facility] [address] [place] [address] Renny Hansen MD [address] [place] [address] [facility] Start: 09-10-2024 [facility] Start: 09-10-2024 [facility] Start: 09-06-2024 Medicare Annual Well ness (AWV) Medicare Annual Wellness (AWV) [facility] Start: 09-03-2024 [facility] Start: 08-31-2024 [facility] Start: 08-31-2024 [facility] Start: 08-23-2024 End: 08-23-2024 Patient encounter procedure 08/23/2024 11:45 AM EST Office Visit [facility] [address] [place] [address] Renny Hansen MD [address] [place] [address] [facility] Start: 08-16-2024 End: 08-16-2024 Patient encounter procedure 08/16/2024 10:30 AM EST Office Visit [facility] [address] [place] [address] Renny Hansen MD [address] [place] [address] [facility] Start: 08-02-2024 End: 08-02-2025 RF Upper gastrointestinal tract and Small bowel Single view W contrast PO FL upper GI double contrast w KUB Imaging Routine Nausea Expected: 08/02/2024, Expires: 08/02/2025 [facility] Work Phone: Comment on above: Expected: 08/02/2024 , Expires: 08/02/2025 Start: 08-02-2024 End: 08-02-2024 Patient encounter procedure [facility] Comment on above: Arrived Start: 07-24-2024 End: [...] blood loss Expected: 07/24/2024 (Approximate), Expires: 07/24/2025 [facility] Comment on above: Expected: 07/24/2024 (Approximate), Expires: 07/24/2025 Start: 07-19-2024 End: 07-19-2024 Patient encounter procedure 07/19/2024 12:00 PM EST Procedure Visit [facility] [address] [place] [phone] [facility] Start: 07-05-2024 End: 07-05-2025 EMG AND NERVE CONDUCTION STUDY EMG AND NERVE CONDUCTION STUDY Neurology Routine Neck pain on left side Radicular pain in left arm Expected: 07/05/2024 (Approximate), Expires: 07/05/2025 [facility] Comment on above: Expected: 07/05/2024 (Approximate), Expires: 07/05/2025 Start: 07-05-2024 End: 09-04-2025 MG Breast - bilateral Screening Bilateral screening mammogram Imaging Routine Breast screening Expected: 07/05/2024 (Approximate), Expires: 09/04/2025 [facility] Work Phone: Comment on above: Expected: 07/05/2024 (Approximate), Expires: 09/04/2025 Start: 07-05-2024 End: 07-05-2024 Patient encounter procedure [facility] Comment on above: Arrived Start: 05-31-2024 End: 05-31-2024 Patient encounter procedure 05/31/2024 1:30 PM EDT Office Visit [facility] [address] [place] [address] Monster Calvillo, ELBERT [address] [place] [address] Arrived [facility] Comment on above: Arrived Start: 05-22-2024 End: 08-21-2024 C reactive protein [Mass/volume] in Serum or Plasma C-REACTIVE PROTEIN Lab Routine 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) Expected: 05/22/2024, Expires: 08/21/2024 [facility] Comment on above: Expected: 05/22/2024 , Expires: 08/21/2024 Start: 05-22-2024 End: 08-21-2024 CBC W Auto Differential panel - Blood COMPLETE BLOOD COUNT AND DIFFERENTIAL Lab Routine 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) Expected: 05/22/2024, Expires: 08/21/2024 [facility] Comment on above: Expected: 05/22/2024 , Expires: 08/21/2024 Start: 05-22-2024 End: 08-21-2024 Erythrocyte sedimentation rate SEDIMENTATION RATE, WESTERGREN Lab Routine 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) Expected: 05/22/2024, Expires: 08/21/2024 [facility] Comment on above: Expected: 05/22/2024 , Expires: 08/21/2024 Start: 05-22-2024 End: 05-22-2024 Patient encounter procedure 05/22/2024 2:00 PM EDT Office Visit [facility] [address] [place] [phone] Monster Calvillo NP [address] [place] [address] [facility] Start: 05-13-2024 Covid-19 Vaccine ( season) Covid-19 Vaccine ( season) [facility] Start: 05-13-2024 Influenza vaccination Influenza Vacc ine (#1) [facility] Start: 05-09-2024 End: 05-09-2024 Patient encounter procedure 05/09/2024 10:00 AM EDT Office Visit [facility] [address] [place] [address] Jr. Sakina Cardenas, [address] [place] [address] [facility] Start: 11-07-2023 End: 11-07-2023 Patient encounter procedure 11/07/2023 2:30 PM EST Office Visit [facility] [address] [place] [phone] Shaikh Denis MD [address] [place] [address] [facility] Start: 10-17-2023 End: 10-17-2023 Patient encounter procedure 10/17/2023 10:15 AM EST Office Visit [facility] [address] [place] [phone] Shaikh Denis MD [address] [place] [phone] Arrived [facility] Comment on above: Arrived Start: 09-12-2023 Advance Directive Discussion Advance Directive Discussion [facility] Start: 11-30-2012 Screening for osteoporosis Bone Dens ity Screening [facility] Start: 11-30-1997 Shingrix Vaccine (1 of 2) Reyes grix Vaccine (1 of 2) [facility] Start: 11-30-1992 Diabetes Screening Diabetes Screenin g [facility] Start: 11-30-1966 Urine microalbumin profile DTa P,Tdap,Td Vaccine (1 - Tdap) [facility] Start: 11-30-1965 Anxiety Screening Anxiety Screening [facility] Start: 11-30-1965 Depression Screening Depression Scre ening [facility] Start: 11-30-1965 Hepatitis C screening Hepatitis C Sc deirdre [facility] Start: 1945 Screening for malign ant neoplasm of colon [facility] CBC W Auto Different ial panel - Blood CBC auto differential Lab Routine 10/02/2024 11:54 AM EST [facility] Work Phone: CBC W Auto Different ial panel - Blood [facility] Work Phone: Comment on above: Ordered: 10/24/2024 Comprehensive metabo lic 1999 panel - Serum or Plasma [facility] Comprehensive metabo lic 2000 panel - Serum or Plasma [facility] CT Shoulder - left W contrast IV [facility] End: 06-21-2025 CT Shoulder - left WO contrast CT SHOULDER WO IVCON LEFT Radiology Routine 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 Work Phone: Comment on above: 1 Occurrences starti ng 05/22/2024 until 06/21/2025 Iron and Iron bindin g capacity panel - Serum or Plasma Iron and TIBC Lab Routine 08/24/2024 2:30 PM EST [facility] Work Phone: Iron and Iron bindin g capacity panel - Serum or Plasma Iron and TIBC Lab STAT 10/02/2024 11:54 AM EST [facility] Work Phone: Patient referral [facility] Work Phone: [facility] Immunizations Immunization Date Immunization Notes Care Provider [facility] 09-19-2024 Influenza, High-dose Seasonal, Quadrivalent, Preservative Free Luisana Leal [employer]USTOMER MANAGEMENT [employer]IST Work Phone: [facility] 08-25-2023 influenza virus vacc ine, unspecified formulation Jair ALEXANDER [facility] 08-25-2023 Influenza, Seasonal, Quadrivalent, Adjuvanted Shaikh Cira [employer] Work Phone: [facility] 08-25-2023 RSV, recombinant, protein subunit RSVpreF, adjuvant reconstitu, 120mcg/0.5mL, PF (Arexvy) Shaikh Cira [employer] Work Phone: [facility] 07-08-2022 influenza virus vacc ine, unspecified formulation Jair ALEXANDER [facility] 07-08-2022 Influenza, Seasonal, Quadrivalent, Adjuvanted Shaikh Cira [employer] Work Phone: [facility] 08-20-2021 influenza virus vacc ine, unspecified formulation Jair ALEXANDER [facility] 08-20-2021 Influenza, Seasonal, Quadrivalent, Adjuvanted Shaikh Cira [employer] Work Phone: [facility] 08-20-2021 pneumococcal polysaccharide vaccine, 23 valent Jair NILL [facility] 11-18-2020 SARS-CoV-2 (COVID-19 ) mRNA-1273 vaccine Jair NILL [facility] 10-20-2020 SARS-CoV-2 (COVID-19 ) mRNA-1273 vaccine Jair NILL [facility] 08-04-2020 influenza virus vacc ine, unspecified formulation Jair NILL [facility] 08-04-2020 Influenza, Seasonal, Quadrivalent, Adjuvanted Shaikh Cira [employer] Work Phone: [facility] 08-04-2020 pneumococcal conjuga te vaccine, 13 valent Jair NILL [facility] 08-06-2019 influenza virus vacc ine, unspecified formulation Jair NILL [facility] 08-06-2019 influenza, high dose seasonal, preservative-free Shaikh Cira [employer] Work Phone: [facility] 07-05-2017 influenza virus vacc ine, unspecified formulation Jair NILL [facility] 07-05-2017 pneumococcal conjuga te vaccine, 13 valent Jair NILL [facility] 07-05-2017 Seasonal trivalent influenza vaccine, adjuvanted, preservative free Shaikh Cira [employer] Work Phone: [facility] 06-29-2016 influenza virus vacc ine, unspecified formulation Jair PARKL [facility] 06-29-2016 Seasonal trivalent influenza vaccine, adjuvanted, preservative free Shaikh Cira [employer] Work Phone: [facility] 06-25-2015 influenza virus vacc ine, unspecified formulation Jair ALEXANDER [facility] 06-25-2015 influenza, injectabl e, quadrivalent, contains preservative Shaikh Cira [employer] Work Phone: [facility] 06-12-2015 influenza virus vacc ine, unspecified formulation Jair ALEXANDER [facility] 06-12-2015 seasonal influenza, intradermal, preservative free Shaikh Cira [employer] Work Phone: [facility] 07-12-2014 influenza virus vacc ine, unspecified formulation Jair ALEXANDER [facility] 07-12-2014 influenza, injectabl e, quadrivalent, contains preservative Shaikh Cira [employer] Work Phone: [facility] 08-07-2013 influenza virus vacc ine, unspecified formulation Jair ALEXANDER [facility] 08-07-2013 influenza, seasonal, injectable Shaikh Cira [employer] Work Phone: [facility] Payers Date Payer Category Payer Medicare (Managed Care) [employer] [id number] 2024 Unknown [id number] 2024 Unknown 2024 Self-pay [id number] 2023 Medicaid AETNA MEDICARE A DVANTAGE [id number] 2023 Private Health Insurance [facility] [id number] 2023 Private Health Insurance 2023 Managed Care HMO (unspecified) [employer]ET[employer] AETNA [id number] 2023-Present [address] [place] [address] HMO [id number] 2007 Medicare [id number] 1959 Medicare [id number] 1959 Private Health Insurance [facility] [id number] 1947 Unknown [id number] 2.16.840.1.605955.3.579.2. 647 1947 Unknown [id number] 2.16.840.1.848022.3.579.2. 593 1947 Unknown [id number] 2.16.840.1.879372.3.579.2. 593 1947 Unknown [id number] 2.16.840.1.032219.3.579.2. 593 1947 Unknown [id number] 2.16.840.1.223787.3.579.2. 593 1947 Unknown [id number] 2.16.840.1.115991.3.579.2. 593 1947 Unknown [id number] 2.16.840.1.466934.3.579.2. 593 1947 Unknown [id number] 2.16.840.1.502415.3.579.2. 593 1947 Unknown [id number] 2.16.840.1.105600.3.579.2. 593 1947 Unknown [id number] 2.16.840.1.975406.3.579.2. 593 1947 Unknown [id number] 2.16.840.1.024944.3.579.2. 593 1947 Unknown [id number] 2.840.1.346842.3.579.2. 593 1947 Unknown [id number] 2.16840.1.356348.3.579.2. 593 1947 Unknown [id number] 2.840.1.462828.3.579.2. 593 1947 Unknown [id number] 2.16840.1.213733.3.579.2. 593 1947 Unknown [id number] 2.16840.1.487130.3.579.2. 593 1947 Unknown [id number] 2.16.840.1.877012.3.579.2. 593 1947 Unknown [id number] 2.16.840.1.459577.3.579.2. 593 1947 Unknown [id number] 2.16.840.1.672668.3.579.2. 593 1947 Unknown [id number] 2.16.840.1.656673.3.579.2. 593 1947 Unknown [id number] 2.16.840.1.561470.3.579.2. 593 1947 Unknown [id number] 2.16.840.1.136032.3.579.2. 593 1947 Unknown [id number] 2.16.840.1.083549.3.579.2. 593 1947 Unknown [id number] 2.16.840.1.264717.3.579.2. 593 1947 Unknown [id number] 2.16.840.1.022325.3.579.2. 593 1947 Unknown [id number] 2.840.1.088132.3.579.2. 593 1947 Unknown [id number] 2.840.1.348969.3.579.2. 593 1947 Unknown [id number] 2.840.1.502882.3.579.2. 727 1947 Unknown [id number] 2.840.1.414113.3.579.2. 727 1947 Unknown [id number] .840.1.843970.3.579.2. 1259 1947 Unknown [id number] .840.1.880915.3.579.2. 1259 1947 Unknown [id number] .840.1.507747.3.579.2. 1259 1947 Unknown [id number] .840.1.017287.3.579.2. 1259 1947 Unknown [id number] 2.840.1.414387.3.579.2. 1259 1947 Unknown [id number] 2.840.1.627473.3.579.2. 1259 1947 Unknown [id number] 2.16.840.1.944192.3.579.2. 125 1947 Unknown [id number] 2.16.840.1.551202.3.579.2. 1258 1947 Unknown [id number] 2.16.840.1.378971.3.579.2. 1258 1947 Unknown [id number] 2.16.840.1.721417.3.579.2. 1258 1947 Unknown [id number] 2.16.840.1.871379.3.579.2. 1258 1947 Unknown [id number] 2.16840.1.623657.3.579.2. 1258 1947 Unknown [id number] 2.16840.1.930503.3.579.2. 1258 1947 Unknown [id number] 2.840.1.150794.3.579.2. 1258 1947 Unknown [id number] 2.16.840.1.285089.3.579.2. 1258 1947 Unknown [id number] 2.16.840.1.213081.3.579.2. 1258 1947 Unknown [id number] 2.16.840.1.697585.3.579.2. 1258 1947 Unknown [id number] 2.16.840.1.926428.3.579.2. 1258 1947 Unknown [id number] 2.16.840.1.856757.3.579.2. 1258 1947 Unknown [id number] 2.16.840.1.809709.3.579.2. 1258 1947 Unknown [id number] 2.16.840.1.583601.3.579.2. 125 1947 Unknown [id number] 2.16.840.1.979480.3.579.2. 196 1947 Unknown [id number] 2.16840.1.997764.3.579.2. 196 1947 Unknown [id number] 2.16.840.1.140015.3.579.2. 196 1947 Unknown [id number] 2.16840.1.594209.3.579.2. 196 1947 Unknown [id number] 2.16840.1.024033.3.579.2. 196 1947 Unknown [id number] 2.16840.1.781372.3.579.2. 196 1947 Unknown [id number] 2.840.1.619007.3.579.2. 196 Medicare Medicare Outpatient [id number] Unknown [facility] [id number] Unknown [id number] 2.16840.1.706554.3.579.2. 531 Unknown [id number] 2.16840.1.992619.3.579.2. 531 Unknown [id number] 2.840.1.341405.3.579.2. 531 Unknown [id number] 2.840.1.210175.3.579.2. 531 Unknown [id number] 2.840.1.437866.3.579.2. 531 Unknown [id number] 2.840.1.162602.3.579.2. 531 Unknown [id number] 2.840.1.426179.3.579.2. 531 Social History Date Type Detail Facility Start: 08-30-2023 End: 11-12-2024 Sex Assigned At [facility] Start: 1945 Sex Assigned At Female [facility] Start: 08-18-2023 End: 10-17-2024 Tobacco smoking status MNIS Ex-smoker [facility] Start: 09-12-1967 History of tobacco use Current smoker [facility] Start: 09-12-1967 History of tobacco use Cigarette Smoker [facility] Start: 09-02-2023 Alcohol intake Not Asked [facility] Start: 08-30-2023 End: 11-12-2024 History of Social function [facility] Within the last year , have you been afraid of your partner or ex-partner? No [facility] How often do you att end mu-ism or jew services? Patient refused [facility] Do you belong to any clubs or organizations such as mu-ism groups, unions, fraternal or athletic groups, or school groups? Yes [facility] Are you now , , , , never or living with a partner? [facility] Do you feel stress - tense, restless, nervous, or anxious, or unable to sleep at night because your mind is troubled all the time - these days [OSQ] Not at all [facility] (I/We) worried wherizwan er (my/our) food would run out before (I/we) got money to buy more. DK or Refused [facility] Start: 08-18-2023 Alcohol Comment (Audit-C) : Negative [facility] Start: 1945 Sex Assigned At Not on file [facility] Start: 04-27-2013 End: 05-22-2024 Tobacco smoking status [facility] Never smoked tobacco (finding) [facility] Start: 05-22-2024 Tobacco use and exposure Smokeless tobacco non-user [facility] Start: 05-22-2024 End: 12-17-2024 Alcoholic beverage intake Current drinker of alcohol (finding) [facility] History of tobacco use Passive smoker [facility] Start: 11-07-2023 Alcohol Comment OCCASSIONAL [facility] Start: 09-25-2024 End: 10-29-2024 Sex Female (finding) [facility] Are you now , , , , [...] Assessment Result Facility 03-02-2024 Functional Status N/A [facility] Clinical Notes 08-26-2021 to 01-17-2025 Renny Hansen [...] - C-reactive protein; (more content not included)... [facility] 01-01-2025 Note Orthopaedic Surgery Subjective Follow-up and Pain of the Left Shoulder 01/01/25 Breann Starks is a 79 y.o. female presenting [...] be an additional personal documentation from me. [facility] 12-24-2024 Note [place] [facility] - [facility] Subjective Breann Starks is a 79 y.o. year old female patient being seen for Coronary Artery Disease, Hypertension, Congestive Heart Failure, Hyperlipidemia, and 3 month follow up Patient Active Problem List Diagnosis Disorder of bursae of shoulder region Chronic obstructive lung disease (CMS/HCC) Atherosclerosis of enterprise coronary artery of enterprise heart without angina pectoris Diaphragmatic hernia Edema [...] furosemide (Lasix) 4 (more content not included)... [facility] 12-17-2024 History of Present illness [...] by mouth every 12 (twelve) hours HYDROcodone-acetaminophen (Rainelle) 5-325 MG tablet Take 1 tablet by [...] Greater than 25 minutes was spent in [id number] consultation and coordination of care. No follow-ups on file. documented in this encounter [facility] 11-27-2024 Note Orthopedic Surgery Subjective Chief [...] her about suppression versus doing something definitive. [facility] 11-13-2024 Note Orthopedic Surgery Subjective [...] to all digits and the wrist Strength: program facilitator 5/5, thumb 5/5, interossei 5/5. wrist extension/flexion [...] be an additional personal documentation from me. [facility] 11-13-2024 Note Patient ID: Breann [...] to verify the correct patient, procedure, equipment, support manager and site/side marked as required. [facility] 11-10-2024 Telephone encounter Note I think it is the op note left shoulder on 01/07/2022 ( Dr. Amin- [facility]) thanks [facility] Work Phone: 11-10-2024 Miscellaneous Notes I think it is the op note left shoulder on 01/07/2022 ( Dr. Amin- [facility]) thanks Patient called in about seeing and the referral to . Patient needs us to send the op report for LT shoulder to because 's office cannot.. 's fax number is [phone]. Is this ok? documented in this encounter [facility] 11-09-2024 Telephone encounter Note Patient called in about seeing and the referral to . Patient needs us to send the op report for LT shoulder to because 's office cannot.. 's fax number is [phone]. Is this ok? 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 Wrist flex/ ext. 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 Wrist flex/ ext. Symmetric 5/5 [...] due to internal joint prosthesis, initial encounter ([facility]) T84.50XA CBC and differential C-reactive protein Sedimentation [...] by mouth every 12 (twelve) hours HYDROcodone-acetaminophen (Rainelle) 5-325 MG tablet Take 1 tablet by [...] Do you have a medical power of [place] attorney?: No Objective : BP 138/76 Pulse [...] a living will and durable power of [place] attorney for healthcare. We discussed telling kitchen [...] [facility] Diagnostic study note [facility] [place] [address] Ultrasound Report Signed Patient: Breann Starks MR#: [id number] : 1945 Acct:[id number] Age/Sex: 78 / F ADM Date: 5 Loc: [facility] Room: Type: [facility] Attending Dr: Dmitriy Duque DO Ordering Provider: Dmitriy Duque DO Date of Service: 10/16/24 US/US axilla: R92.8 ([id number]) MM/MM diagnostic mammo BI w/CAD: ENLARGED LT [...] Benton Jr., DMeenaOMeena10/16/2024 2:20 PM Dictation Location: [facility] Tech: Ghazal Barber Transcribed By: STAR 10/16/24 1420 Dictated By: Francisco J Benton Jr, DO 10/16/24 1343 Signed By: 10/16/24 1420 [facility] 10-04-2024 History of Present illness Narrative Images from the original note were not included. Breann Starks 1945 Breann Starks is a 78 y.o. 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 Constitutional: Appearance: Normal appearance. HENT: Head: [...] encounter [facility] 09-24-2024 Note [place] [facility] - [facility] Subjective Breann Starks is a 78 [...] Chronic obstructive lung disease (CMS/HCC) Atherosclerosis of enterprise coronary artery of enterprise heart without angina pectoris Diaphragmatic hernia Edema [...] at bedtime. (Patient (more content not included)... [facility] 09-19-2024 History of Present illness [...] Reported on 09/18/2024) 90 tablet 0 HYDROcodone-acetaminophen (Rainelle) 5-325 MG tablet Take 1 tablet by [...] [facility] 09-19-2024 Instructions Luisana Leal NP - [...] , wrist extensors , wrist flexor , program facilitator strength 5/5. Left upper extremity strength is [...] reflex 2+ . Neal's sign negative. Coordination: Hubfwg-lo-sjrx testing and rapid alternating movements are normal [...] deficiency anemia acute De cember 2023 12:55pm [facility] Work Phone: [phone]) 875-371812-13-2024 Evaluation note* Diagnosis Onset Date Resolution Status Admit Date Iron deficiency anemia acute De cember 2023 12:55pm Axillary lymphadenopathy acute September 25, 2024 11:08am Iron deficiency anemia acute Ja nuary 2024 11:08am [facility] Work Phone: [phone]) 548-746712-05-2024 History of Present illness Narrative* Renny Hansen [...] MOUTH EVERY DAY 90 tablet 0 HYDROcodone-acetaminophen (Rainelle) 5-325 MG tablet Take 1 tablet by [...] for As Previously Scheduled. documented in [place] encounter[place] [id number] History of Present illness Narrative* Renny Hansen [...] MOUTH EVERY DAY 90 tablet 0 HYDROcodone-acetaminophen (Rainelle) 5-325 MG tablet Take 1 tablet by [...] Date Anemia Atrial fibrillation (CMS/HCC) Centrilobular emphysema ([facility]/HCC) COPD (chronic obstructive pulmonary disease) ([facility]) COPD exacerbation ([facility]) 10/17/2023 Coronary artery disease ([facility]/HCC) Diastolic dysfunction Essential hypertension ([facility]/HCC) History of tobacco abuse Nonalcoholic steatohepatitis (LOJA) Obstructive sleep apnea Osteoarthritis Paroxysmal atrial fibrillation ([facility]/HCC) Peptic ulcer disease Secondary pulmonary arterial hypertension ([facility]/HCC) Sick sinus syndrome ([facility]/HCC) Spinal stenosis, lumbar region with neurogenic claudication SVT (supraventricular tachycardia) ([facility]) URTI (acute upper respiratory infection) [...] Greater than 25 minutes was spent in mies-ju-jnlq consultation and coordination of care. Persistent atrial fibrillation (HCC) (CMS/HCC) Nausea - FL upper GI double contrast w KUB; Future Follow up in about 2 weeks (around 08/16/2024) for Test/Lab Review. documented in this encounterRay County Memorial HospitalQhhgxgwjbr13-02-4797 Telephone encounter Note* Telephone Encounter - DANIELLE [place] - 07/25/2024 1:07 PM EST My chart message. [facility] [id number] Miscellaneous Notes* Telephone Encounter - DANIELLE [place] - 07/25/2024 1:07 PM EST My chart message. documented in this encounterRay County Memorial HospitalFegjbolvtb31-80-0579 History of Present illness Narrative* DANIELLE [place] [...] MOUTH EVERY DAY 90 tablet 0 HYDROcodone-acetaminophen (Rainelle) 5-325 MG tablet Take 1 tablet by [...] Neck pain on left side Can continue Rainelle as needed for pain. Radicular pain in [...] hypertension (CMS/HCC) The patient is seeing a bilingual medical assistant for this condition, treatment is [...] Hansen. documented in this encounterRay County Memorial HospitalWgitpxfxex13-96-2424 Telephone encounter Note* Telephone Encounter - DANIELLE [place] - 07/24/2024 10:04 AM EST Will discuss with pt at today's OV [facility] HospitalJfwyhnouyi49-31-6486 Miscellaneous Notes* Telephone Encounter - DANIELLE [place] - 07/24/2024 10:04 AM EST Will discuss with pt at today's OV * Telephone Encounter - Renny Hansen MD - 07/05/2024 2:55 PM EDT Call after mammogram with plan. See last OV. documented in this encounterRay County Memorial HospitalWdftzmynkz08-23-3056 NoteUT Cardiology - [facility] Subjective Breann Starks is a 78 y.o. year old female patient being seen for Atrial Fibrillation, PACEMAKER, Coronary Artery Disease, Hypertension, Sinus node dysfunction (HAS BOSTON PACER), Obesity, and Edema Patient Active Problem List Diagnosis Disorder of bursae of shoulder region Chronic obstructive lung disease (CMS/HCC) Atherosclerosis of enterprise coronary artery of enterprise heart without angina pectoris Diaphragmatic hernia Edema [...] rhythm, normal EKG Ech (more content not included)...[facility]10-24-2024 Telephone encounter Note* Telephone Encounter - Renny Hansen MD - 07/05/2024 2:55 PM EDT Call after mammogram with plan. See last OV. [facility] HospitalIexcewihig91-54-6697 History of Present illness Narrative* Renny Hansen [...] MOUTH EVERY DAY 90 tablet 0 HYDROcodone-acetaminophen (Rainelle) 5-325 MG tablet Take 1 tablet by [...] Greater than 45 minutes was spent in pcrn-bi-qvlv consultation and coordination of care. Follow up in about 4 months (around 11/05/2024) for Call after mammogram. documented in this encounterRay County Memorial HospitalKzklfzxwjr45-69-3134 History of Present illness Narrative* Monster Calvillo [...] exacerbation. documented in this encounterRay County Memorial HospitalNvqdyhcrxh05-41-5291 NoteHNO ID: [id number] Author: BOO BUCHANAN PA-C Service: ? Author Type: Physician Credit Risk Modeler Type: Progress Notes Filed: 05/22/2024 13:53 Note [...] She was recommended for second opinion at [facility]. She also had a CRP [...] No date: COPD (chronic obstructive pulmonary disease) ([facility]) SOCIAL HISTORY: Tobacco Use: Never [...] 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 ([facility]) T84.84XA CT SHOULDER WO IVCON [...] hardware. Bone scan performed at [facility]' to be uploaded to the system. Boo Buchanan (more content not included)...[facility] 05-22-2024 History of Present illness Narrative* Boo [...] She was recommended for second opinion at [facility]. She also had a CRP [...] No date: COPD (chronic obstructive pulmonary disease) ([facility]) SOCIAL HISTORY: Tobacco Use: Never [...] 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 ([facility]) T84.84XA CT SHOULDER WO IVCON [...] of the hardware. Bone scan performed at [facility] to be uploaded to the system. Boo Buchanan PA-C documented in this encounterGrand Lake [facility]09-10-2024 NoteHNO ID: [id number] Author: JYOTHI CRUZ RT(R) Service: ? Author [...] PATIENT PRESENTS WITH AN IMPLANTABLE OR ATTACHED CHAIRMAN AND CHIEF EXECUTIVE OFFICER: No RADIOLOGY DEPARTMENT: General X-ray: Exam(s) Completed: Upper Extremity X-Ray(s): Shoulder, AP / TRUE AP / AXILLARY / SUPRA OUTLET left PERIPHERAL IV DATA: Not applicable SIGNED BY: RT Chaparrita(R) May 22, 2024 1:25 [facility]09-10-2024 History of Present illness Narrative* Jyothi [...] PATIENT PRESENTS WITH AN IMPLANTABLE OR ATTACHED CHAIRMAN AND CHIEF EXECUTIVE OFFICER: No RADIOLOGY DEPARTMENT: General X-ray: Exam(s) Completed: Upper Extremity X- Ray(s): Shoulder, AP / TRUE AP / AXILLARY / SUPRA OUTLET left PERIPHERAL IV DATA: Not applicable SIGNED BY: RT Chaparrita(R) May 22, 2024 1:25 PM documented in this encounterGrand Lake [facility]08-28-20[facility] History of Present illness Narrative* Jr. Sakina Cardenas, - 05/09/2024 10:00 AM EDT Images from the original note were not included. HISTORY OF PRESENT ILLNESS: EST PT Breann Starks is an 78 y.o. @ female. (EST PT ; LAST APPT W/ QUINN) RECHECK (L) SHOULDER PAIN ; HERE FOR BONE SCAN RESULTS 05/02/24 @ [facility] (VERBAL GIVEN PER QUINN - REFERRAL SENT TO DR AMIN) & LABS 05/09/24 @ [facility] (CBC / SED RATE / CRP) S/P (L) REVERSE TSR 12/29/21 - DR AMIN XRAYS, (L) SHOULDER & C-SPINE 04/16/24 IN EPIC ATTEMPTED MRI @ [facility] - UNABLE TO OBTAIN IMAGES D/T PACEMAKER PLACEMENT BONE SCAN 05/02/24 @ [facility] LABS 05/09/24 @ [facility] (CBC / SED RATE / CRP) NO MDP / PREDNISONE NO RECENT PHYSICAL THERAPY PAIN MGMT @ [facility] (LBP) CONTINUES TO HAVE CONSTANT DISCOMFORT [...] USING HER(L) ARM TO USE A BACK STAFF AIR TACTICAL OFFICER ON HER BACK ALLERGIES: Allergies Allergen Reactions Nsaids Other Reaction(s): HEART ISSUES Digoxin Rash Wound Dressing Adhesive Rash HOME MEDICATIONS: Current Outpatient Medications Medication Instructions apixaban (ELIQUIS) 5 mg, Oral, 2 times daily ferrous sulfate 325 mg, Oral, Daily with breakfast, Do not crush, chew, or split. flecainide (TAMBOCOR) 100 mg, Oral, Every 12 hours furosemide (LASIX) 40 mg, Oral, Daily HYDROcodone-acetaminophen (Rainelle) 5-325 MG tablet 1 tablet, Oral, 3 [...] Elbow: none Palpation additional comments: Neg Spurlings Quality Reviewer strength symmetric. Wrist flex/ ext. Symmetric 5/5 [...] I am acting as scribe for Dr. Cardenas/[facility], PLAN: We have reviewed prior [...] D.O. documented in this encounterRay County Memorial HospitalKctfconmiy60-23-0111 NoteChief Complaint consultation for anemia HPI Staff 78 year old female presents on consultation from [facility] for anemia. Labs completed yesterday with [...] PSVT, spinal stenosis, cervical radiculopathy; referred from [facility] ED for anemia, low iron, and [...] PSVT (paroxysmal supraventricular t (more content not included)...[facility] HospitalComment on above:Result Comment: Electronically Signed By: CATHERINE CUBA, Jair Quinonez\Date and Time Signed: 03/02/24 13:01 [id number] Evaluation note* Encounter Date Diagnosis Assessment Notes Treatment Notes Treatment Clinical Notes Sep, LOJA (nonalcoholic steatohepatitis) (ICD-10 - K75.81) OBTAIN FIBROSURE RESULTS FROM [facility] RE[facility] ON RESULTS PT ENCOURAGED WEIGHT LOSS RTO ONE YEAR WITH LABS ANNUALLY Sep, Unspecified cirrhosis of liver (ICD-10 - K74.60) [employer] Other 12-15-2021 Evaluation note* Encounter Date Diagnosis Assessment Notes Treatment Notes Treatment Clinical Notes Aug, Nonalcoholic steatohepatitis (LOJA) (ICD-10 - K75.81) RTO 6-8 WEEKS Aug, Unspecified cirrhosi s of liver (ICD-10 - K74.60) 15 Dec, 2021 Morbid obesity (ICD- 10 - E66.01) [employer] Other Evaluation + Plan note No data available for this section [facility] Evaluation noteNo assessment information available [facility] Work Phone: Evaluation note* Diagnosis 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)- Primary Left shoulder pain, unspecified chronicity Left shoulder pain, unspecified chronicity documented in this encounter [facility]* Diagnosis Left shoulder pain, unspecified chronicity documented in this encounter [facility]* Diagnosis Acute on chronic [...] syndrome, unspecified type documented [facility] encounter [facility]* Diagnosis Essential hypertension (CMS/HCC)- [...] Unspecified essential hypertension documented [facility] this encounter [facility]* Diagnosis Essential hypertension (CMS/HCC)- [...] Other thrombophilia (CMS/HCC) documented [facility] this encounter [facility]* Diagnosis Essential hypertension (CMS/HCC)- [...] blood loss (chronic) documented in this encounter [facility]* Diagnosis Essential hypertension (CMS/HCC)- Primary [...] Nausea Nausea alone documented in this encounter [facility]* Diagnosis Essential hypertension (CMS/HCC)- [...] Nausea Nausea alone documented in this encounter [facility] HealthcareEvaluation note* Diagnosis Acute pain of left shoulder- Primary History of reverse total replacement of left shoulder joint documented in this encounter [facility]* Diagnosis Chronic left shoulder pain Pain in joint, shoulder region documented in this encounter [facility] HealthcareEvaluation note* Diagnosis Acute on chronic diastolic (congestive) heart failure (CMS/HCC)- Primary documented in this encounter [facility] HealthcareEvaluation note* Diagnosis Essential hypertension (CMS/HCC)- Primary [...] (CMS/HCC) Atrial fibrillation documented in this encounter [facility]* Diagnosis Essential hypertension (CMS/HCC)- [...] tissues of limb documented in this encounter [facility]* Diagnosis Essential hypertension (CMS/HCC)- [...] unspecified single disease documented in this encounter [facility] HealthcareEvaluation note* Diagnosis Essential hypertension (CMS/HCC)- Primary [...] of lymph nodes documented in this encounter [facility]* Diagnosis Essential hypertension (CMS/HCC)- [...] left upper extremity documented in this encounter [facility]* Diagnosis Essential hypertension (CMS/HCC)- [...] initial encounter (CMS/HCC) documented in this encounter [facility]* Diagnosis Essential hypertension (CMS/HCC)- [...] left shoulder joint documented in this encounter [facility]* Diagnosis Essential hypertension (CMS/HCC)- Primary Unspecified essential hypertension Persistent atrial fibrillation (HCC) ([facility]/HCC) Atrial fibrillation Chronic bilateral low back pain [...] Surgical History pacemaker Hospitalization History see above [employer] Other Hospital Discharge instructions No data available for this section [facility] Discharge instructionsAmbulatory Orders* Referral to General Surgery Location: None Selected [facility] Work Phone: Progress note No data available for this section [facility] Reason for referral (narrative)* Diagnostic Procedure Only (Routine) - Closed Specialty Diagnoses / Procedures Referred By Contac t Referred To Contact XR IMAGING Diagnoses Left shoulder pain, unspecified chronicity Procedures XR SHOULDER ORTHO 4V AP/TRUE AP/LAT/OUTLET LEFT RADEX SHOULDER COMPLETE MINIMUM 2 VIEWS Boo Buchanan PA-C [address] [place] [address] [place] [address] Referral ID Status Reason Start Date Expiration Date V isits Requested Visits Authorized [id number] Closed Auto-Generate d Referral 05/08/2024 06/07/2025 1 1 [facility] for visit Narrative* Diagnostic Procedure Only (Routine) - Closed Specialty Diagnoses / Procedures Referred By Contac t Referred To Contact XR IMAGING Diagnoses Left shoulder pain, unspecified chronicity Procedures XR SHOULDER ORTHO 4V AP/TRUE AP/LAT/OUTLET LEFT RADEX SHOULDER COMPLETE MINIMUM 2 VIEWS Boo Buchanan PA-C [address] [place] [address] [place] [address] Referral ID Status Reason Start Date Expiration Date V isits Requested Visits Authorized [id number] Closed Auto-Generate d Referral 05/08/2024 06/07/2025 1 1 [facility] for visit Narrative* Consultation (Routine) - Closed Specialty Diagnoses / Procedures Referred By Contac t Referred To Contact Neurology Diagnoses Neck pain on left side Procedures [place] OFFICE/OUTPATIENT NEW HIGH MDM 60 MINUTES Renny Hansen MD [address] [facility] [address] [place] [address] Phone: tel: fax: Paula Lord MD [address] [place] [address] Phone: tel: fax: Referral ID Status Reason Start Date Expiration Date V isits Requested Visits Authorized [id number] Closed Specialty Services Required 09/13/2024 03/12/2025 1 [...] Diagnoses Chronic left shoulder pain Monster Calvillo, CUSTOMER MANAGEMENT SPECIALIST [address] [place] [address] Referral ID Status Reason Start Date Expiration Date V isits Requested Visits Authorized [id number] Pending Review 05/16/2024 11/12/2024 1 1 Specialty Diagnoses / Procedures Referred By Contac t Referred To Contact CT IMAGING Diagnoses 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) Procedures CT SHOULDER WO IVCON LEFT CT UPPER EXTREMITY W/O CONTRAST MATERIAL Boo Buchanan PA-C [address] [facility] [place] [address] [place] [address] Referral ID Status Reason Start Date Expiration Date Visits Requested Visits Authorized [id number] New Request Auto-Generat ed Referral 05/22/2024 06/21/2025 1 1 Specialty Diagnoses / Procedures Referred By Contac t Referred To Contact XR IMAGING Diagnoses Left shoulder pain, unspecified chronicity Procedures XR SHOULDER ORTHO 4V AP/TRUE AP/LAT/OUTLET LEFT RADEX SHOULDER COMPLETE MINIMUM 2 VIEWS Boo Buchanan PA-C [address] [facility] [place] [address] [place] [address] Referral ID Status Reason Start Date Expiration Date V isits Requested Visits Authorized [id number] Closed Auto-Generate d Referral 05/08/2024 06/07/2025 1 1 Additional Source Comments INFORMATION SOURCE (unrecogn ized section and content) DATE CREATED AUTHOR 10/23/[address] [facility] DATE CREATED AUTHOR AUTHOR'S ORGANIZ ATION 01/22/2022 Replaced By [facility] DATE CREATED AUTHOR AUTHOR'S ORGANIZ ATION 02/18/[address] [facility] DATE CREATED AUTHOR AUTHOR'S ORGANIZ ATION 03/11/2024 [facility] DATE CREATED AUTHOR AUTHOR'S ORGANIZ ATION 05/24/2024 [facility] DATE CREATED AUTHOR AUTHOR'S ORGANIZ ATION 12/18/2024 [facility] DATE CREATED AUTHOR AUTHOR'S ORGANIZ ATION 12/23/2024 [facility] DATE CREATED AUTHOR AUTHOR'S ORGANIZ ATION 01/04/2025 [facility] DATE CREATED AUTHOR AUTHOR'S ORGANIZ ATION 01/23/2025 [facility] REASON FOR VISIT (unrecogniz ed section and content) Reason Comments Pain Specialty Diagnoses / Procedures Referred By Currysolomon julisa Referred To Contact Orthopaedic Surgery Diagnoses Injury of left shoulder and upper arm, sequela Left shoulder pain, unspecified chronicity Renny Hansen MD [address] [facility] [address] [place] [address] Phone: tel: fax: Jr. Sakina Cardenas, DO [address] [place] [address] Phone: tel: fax: Referral ID Status Reason Start Date Expiration Date V isits Requested Visits Authorized [id number] Closed Specialty Services Required 10/17/2024 04/15/2025 1 [...] ORTHOPAEDIC SURGERY Pedro Pablo Cruz PA [address] [facility] [address] [place] [address] González Alvarado MD [address] [place] [address] Referral ID Status Reason Start Date Expiration Date V isits Requested Visits Authorized [id number] Authorized 05/08/2024 09/11/2024 99 99 Reason Comments [...] October 11, 2023 End: October 11, 2023 Educational Institution Curator Relationship Specialty Start Date End Date Shaikh [...] May 02, 2024 End: May 02, 2024 Educational Institution Curator Relationship Specialty Start Date End Date Luisana Johnson MD [address] [place] [address] PCP - General 01/05/06 Pedro Pablo Cruz MD [address] [place] [address] Referring Infectious Diseases 05/07/24 Educational Institution Curator Relationship Specialty Start Date End Date Luisana Johnson MD [address] [place] [address] PCP - General 01/05/06 Pedro Pablo Cruz MD [address] [place] [address] Referring Infectious Diseases 05/07/24 Educational Institution Curator Relationship Specialty Start Date End Date Luisana Johnson MD [address] [place] [address] PCP - General 01/05/06 Pedro Pablo Cruz MD [address] [place] [address] Referring Infectious Diseases 05/07/24 Educational Institution Curator Relationship Specialty Start Date End Date Wesley Long MD [address] [place] [address] PCP - General Family Medicine 05/17/24 Monster Calvillo NP [address] [place] [address] Nurse Practitioner Family Medicine 05/17/24 Educational Institution Curator Relationship Specialty Start Date End Date Wesley Long MD [address] [place] [address] PCP - General Family Medicine 05/17/24 Monster Calvillo NP [address] [place] [address] Nurse Practitioner Family Medicine 05/17/24 Educational Institution Curator Relationship Specialty Start Date End Date Wesley Long MD [address] [place] [address] PCP - General Family Medicine 05/17/24 Monster Calvillo NP [address] [place] [address] Nurse Practitioner Family Medicine 05/17/24 Educational Institution Curator Relationship Specialty Start Date End Date Wesley Long MD [address] [place] [address] PCP - General Family Medicine 05/17/24 Monster Calvillo NP [address] [place] [address] Nurse Practitioner Family Medicine 05/17/24 Educational Institution Curator Relationship Specialty Start Date End Date Wesley Long MD [address] [place] [address] PCP - General Family Medicine 05/17/24 Monster Calvillo NP [address] [place] [address] Nurse Practitioner Family Medicine 05/17/24 Educational Institution Curator Relationship Specialty Start Date End Date Wesley Long MD [address] [place] [address] PCP - General Family Medicine 05/17/24 Monster Calvillo NP [address] [place] [address] Nurse Practitioner Family Medicine 05/17/24 Educational Institution Curator Relationship Specialty Start Date End Date Wesley Long MD [address] [place] [address] PCP - General Family Medicine 05/17/24 Monster Calvillo NP [address] [place] [address] Nurse Practitioner Family Medicine 05/17/24 Educational Institution Curator Relationship Specialty Start Date End Date Wesley Long MD [address] [place] [address] PCP - General Family Medicine 05/17/24 Monster Calvillo NP [address] [place] [address] Nurse Practitioner Family Medicine 05/17/24 Educational Institution Curator Relationship Specialty Start Date End Date Wesley Long MD [address] [place] [address] PCP - General Family Medicine 05/17/24 Monster Calvillo NP [address] [place] [address] Nurse Practitioner Family Medicine 05/17/24 Educational Institution Curator Relationship Specialty Start Date End Date Wesley Long MD [address] [place] [address] PCP - General Family Medicine 05/17/24 Monster Calvillo NP [address] [place] [address] Nurse Practitioner Family Medicine 05/17/24 Educational Institution Curator Relationship Specialty Start Date End Date Wesley Long MD [address] [place] [address] PCP - General Family Medicine 05/17/24 Monster Calvillo NP [address] [place] [address] Nurse Practitioner Family Medicine 05/17/24 Educational Institution Curator Relationship Specialty Start Date End Date Wesley Long MD [address] [place] [address] PCP - General Family Medicine 05/17/24 Monster Calvillo NP [address] [place] [address] Nurse Practitioner Family Medicine 05/17/24 Educational Institution Curator Relationship Specialty Start Date End Date Wesley Long MD [address] [place] [address] PCP - General Family Medicine 05/17/24 Monster Calvillo NP [address] [place] [address] Nurse Practitioner Family Medicine 05/17/24 Educational Institution Curator Relationship Specialty Start Date End Date Wesley Long MD [address] [place] [address] PCP - General Family Medicine 05/17/24 Monster Calvillo NP [address] [place] [address] Nurse Practitioner Family Medicine 05/17/24 Educational Institution Curator Relationship Specialty Start Date End Date Shaikh Denis MD [address] [place] [address] PCP - General Internal Medicine 10/17/23 Educational Institution Curator Relationship Specialty Start Date End Date Shaikh Denis MD [address] [place] [address] PCP - General Internal Medicine 10/17/23 Educational Institution Curator Relationship Specialty Start Date End Date Shaikh Denis MD [address] [place] [address] PCP - General Internal Medicine 10/17/23 Educational Institution Curator Relationship Specialty Start Date End Date Wesley Long MD [address] [place] [address] PCP - General Family Medicine 05/17/24 Monster Calvillo NP [address] [place] [address] Nurse Practitioner Family Medicine 05/17/24 Educational Institution Curator Relationship Specialty Start Date End Date Wesley Long MD [address] [place] [address] PCP - General Family Medicine 05/17/24 Monster Calvillo NP [address] [place] [address] Nurse Practitioner Family Medicine 05/17/24 Educational Institution Curator Relationship Specialty Start Date End Date Wesley Long MD [address] [place] [address] PCP - General Family Medicine 05/17/24 Monster Calvillo NP [address] [place] [address] Nurse Practitioner Family Medicine 05/17/24 Educational Institution Curator Relationship Specialty Start Date End Date Wesley Long MD [address] [place] [address] PCP - General Family Medicine 05/17/24 Monster Calvillo NP [address] [place] [address] Nurse Practitioner Family Medicine 05/17/24 Educational Institution Curator Relationship Specialty Start Date End Date Wesley Long MD [address] [place] [address] PCP - General Family Medicine 05/17/24 Monster Calvillo NP [address] [place] [address] Nurse Practitioner Family Medicine 05/17/24 Educational Institution Curator Relationship Specialty Start Date End Date Renny Hansen MD [address] [facility] [address] [place] [address] PCP - General Internal Medicine 09/19/24 [...] September 25, 2024 End: September 25, 2024 Educational Institution Curator Relationship Specialty Start Date End Date Renny Hansen MD [address] [facility] [address] [place] [address] PCP - General Internal Medicine 09/19/24 Educational Institution Curator Relationship Specialty Start Date End Date Renny Hansen MD [address] [facility] [address] [place] [address] PCP - General Internal Medicine 09/19/24 Educational Institution Curator Relationship Specialty Start Date End Date Renny Hansen MD [address] [facility] [address] [place] [address] PCP - General Internal Medicine 09/19/24 Educational Institution Curator Relationship Specialty Start Date End Date Renny Hansen MD [address] [facility] [address] [place] [address] PCP - General Internal Medicine 09/19/24 Team [...] October 16, 2024 End: October 16, 2024 Educational Institution Curator Relationship Specialty Start Date End Date Renny Hansen MD [address] [facility] [address] [place] [address] PCP - General Internal Medicine 09/19/24 Educational Institution Curator Relationship Specialty Start Date End Date Renny Hansen MD [address] [facility] [address] [place] [address] PCP - General Internal Medicine 09/19/24 Team [...] October 29, 2024 Katharina Gale Tre , [employer]OT[employer] SALES REPRESENTATIVE Attending Provider Active Start: October Educational Institution Curator Relationship Specialty Start Date End Date Renny Hansen MD [address] [facility] [address] [place] [address] PCP - General Internal Medicine 09/19/24 Renny Hansen MD [address] [facility] [address] [place] [address] PCP - Medical [place] 09/12/2409/11 Cindi Jenkins LSW Program Assistant Family Medicine 11/06/24 Educational Institution Curator Relationship Specialty Start Date End Date Renny Hansen MD [address] [facility] [address] [place] [address] PCP - General Internal Medicine 09/19/24 Renny Hansen MD [address] [facility] [address] [place] [address] PCP - Medical [place] 09/12/2409/11 Cindi Jenkins [facility] Program Assistant Family Medicine 11/06/24 Educational Institution Curator Relationship Specialty Start Date End Date Renny Hansen MD [address] [facility] [address] [place] [address] PCP - General Internal Medicine 09/19/24 Renny Hansen MD [address] [facility] [address] [place] [address] PCP - Medical [place] 09/12/2409/11 Cindi Jenkins, NEWS WIRE PHOTO OPERATOR Program Assistant Family Medicine 11/06/24 Educational Institution Curator Relationship Specialty Start Date End Date Renny Hansen MD [address] [facility] [address] [place] [address] PCP - General Internal Medicine 09/19/24 Renny Hansen MD [address] [facility] [address] [place] [address] PCP - Medical [place] 09/12/2409/11 Lisa Ramirez LPN 12/05/24 Educational Institution Curator Relationship Specialty Start Date End Date Renny Hansen MD [address] [facility] [address] [place] [address] PCP - General Internal Medicine 09/19/24 Renny Hansen MD [address] [facility] [address] [place] [address] PCP - Medical [place] 09/12/2409/11 Lisa Ramirez LPN 12/05/24 Educational Institution Curator Relationship Specialty Start Date End Date Renny Hansen MD [address] [facility] [address] [place] [address] PCP - General Internal Medicine 09/19/24 Renny Hansen MD [address] [facility] [address] [place] [address] PCP - Medical [place] 09/12/2409/11 Lisa Ramirez LPN 12/05/24 Goals [...] or prosecute any alcohol or drug abuse patient.[facility] the event this information is protected by the Federal Confidentiality of Alcohol and Drug Abuse Patient Records regulations: The Federal rules restrict any use of the information to criminally investigate or prosecute any alcohol or drug abuse patient.[facility] the event this information is protected by the Federal Confidentiality of Alcohol and Drug Abuse Patient Records regulations: The Federal rules restrict any use of the information to criminally investigate or prosecute any alcohol or drug abuse patient.[facility] FOR RECORDS PERTAINING TO PATIENTS [...] BE BASED ON THE PRIMARY CLINICAL RECORDS. [facility]. provides no warranty or guarantee of the accuracy or completeness of information in this document.
--- NOTE | 2025-01-30 10:02 | PM.CN ---
Consult Note: HPI Data of Consult Patient: known to practice within the last 3 years Requesting Physician: Claire Clement NP Primary Care Provider: FAVIAN LUNA Consult Narrative Reason for consult: f/u Narrative: Breann Starks a pleasant 79 year old female with chronic low back and LE pain presents for evaluation. Pt has chronic pain secondary to lumbar ddd, lumbar stenosis, lumbar spondylosis, and sacroiliac joint pain. She has failed > 6 weeks of PT and provider guided HEP, heat, ice, tylenol, and cannot take NSAIDs. pain today 8/10 in left low back and leg. unable to describe pain or alleviating/aggrevating factors. cc:: CC: Claire Clement NP Review of Systems ROS Status of ROS 10 or more systems reviewed and unremarkable except as noted in history and below [facility] Medical History (Updated 01/27/25 @ 10:54 by Holley Johnson MD) Arthritis ?M19.90 - Unspecified osteoarthritis, unspecified site (ICD-10) Chronic obstructive pulmonary disease ?J44.9 - Chronic obstructive pulmonary disease, unspecified (ICD-10) Peptic ulcer ?K27.9 - Peptic ulcer, site unspecified, unspecified as acute or chronic, without hemorrhage or perforation (ICD-10) Dyspnea on exertion ?R06.09 - Other forms of dyspnea (ICD-10) Anemia ?D64.9 - Anemia, unspecified (ICD-10) Hypertension ?I10 - Essential (primary) hypertension (ICD-10) Extremity edema ?R60.0 - Localized edema (ICD-10) Congestive heart failure ?I50.9 - Heart failure, unspecified (ICD-10) Atrial fibrillation ?I48.91 - Unspecified atrial fibrillation (ICD-10) Shoulder pain ?M25.519 - Pain in unspecified shoulder (ICD-10) Fatty liver ?K76.0 - Fatty (change of) liver, not elsewhere classified (ICD-10) History of shingles ?Z86.19 - Personal history of other infectious and parasitic diseases (ICD-10) Osteoarthritis ?M19.90 - Unspecified osteoarthritis, unspecified site (ICD-10) Pacemaker ?Z95.0 - Presence of cardiac pacemaker (ICD-10) Hiatal hernia ?K44.9 - Diaphragmatic hernia without obstruction or gangrene (ICD-10) Low back pain ?M54.50 - Low back pain, unspecified (ICD-10) Irregular heart beat ?I49.9 - Cardiac arrhythmia, unspecified (ICD-10) Surgical History History of shoulder replacement ?Z96.619 - Presence of unspecified artificial shoulder joint (ICD-10) S/P rotator cuff repair ?Z98.890 - Other specified postprocedural states (ICD-10) History of colonoscopy ?Z98.890 - Other specified postprocedural states (ICD-10) S/P YANELI-BSO ?Z90.710 - Acquired absence of both cervix and uterus (ICD-10) ?Z90.722 - Acquired absence of ovaries, bilateral (ICD-10) ?Z90.79 - Acquired absence of other genital organ(s) (ICD-10) H/O cardiac catheterization ?Z98.890 - Other specified postprocedural states (ICD-10) H/O arthroscopy of shoulder ?Z98.890 - Other specified postprocedural states (ICD-10) H/O arthroscopy of knee ?Z98.890 - Other specified postprocedural states (ICD-10) History of appendectomy ?Z90.49 - Acquired absence of other specified parts of digestive tract (ICD-10) History of total knee arthroplasty ?Z96.659 - Presence of unspecified artificial knee joint (ICD-10) Social History Within the past year, how often did you have a drink containing alcohol: monthly or less Smoking status: Former smoker Non-prescribed substance use: denies use Previous occupational history: retired Highest level of school completed/degree received: high school graduate Little interest or pleasure in doing things: not at all Feeling down, depressed, or hopeless: not at all Meds Home Medications and Allergies Home Medications ?Medication ?Instructions ?Recorded ?Confirmed ?Type cholecalciferol (vitamin D3) 125 5,000 unit PO DAILY 02/16/23 01/27/25 History mcg (5,000 unit) tablet (Vitamin D3) flecainide 100 mg tablet 100 mg PO Q12H 02/16/23 01/27/25 History omeprazole 40 mg capsule,delayed 40 mg PO DAILY 02/16/23 01/27/25 History release spironolactone 25 mg tablet 25 mg PO DAILY 02/16/23 01/27/25 History (Aldactone) verapamil 180 mg tablet,extended 180 mg PO Q12H 02/16/23 01/27/25 History release (Calan SR) apixaban 5 mg tablet (Eliquis) 5 mg PO BID 05/11/23 01/27/25 History furosemide 40 mg tablet 40 mg PO DAILY 03/01/24 01/27/25 History naloxone 4 mg/actuation nasal 4 mg intranasal Q3M PRN opioid 05/17/24 01/27/25 Rx spray (Narcan) overdose #2 ea baclofen 10 mg tablet 10 mg PO TID #90 tabs 10/10/24 01/27/25 Rx hydrocodone 5 mg-acetaminophen 325 1 tab PO TID PRN pain #90 tabs 10/26/24 01/27/25 Rx mg tablet hydrocodone 5 mg-acetaminophen 325 1 tab PO TID PRN pain #90 tabs 01/03/25 Rx mg tablet Allergies Allergy/AdvReac Type Severity Reaction Status Date / Time No Known Drug Allergies Allergy Verified 12/17/24 06:58 Exam Constitutional Documenting provider has reviewed patient's vital signs: yes Common normals: no apparent distress, oriented x3, healthy appearing, alert and well nourished General appearance: cooperative HENMT Common normals: normocephalic, hearing grossly normal bilaterally and moist oral mucous membranes Head and scalp: normocephalic Eye Common normals: PERRL Pupil: PERRL Neck & C-Spine Common normals: full ROM General: normal visual inspection Chest Common normals: inspection of chest normal Respiratory Common normals: normal respiratory effort, no retractions and no use of accessory muscles Back & Pelvis Lumbar spine/lower back: ROM limited, pain with ROM and straight leg raise negative bilaterally Sacroiliac joints: SI joint(s) abnormal Other: left sij positive letitia(patricks), gaenslens, thigh thrust, compression test sensation intact BLE strength 5/5 in BLE Neuro Common normals: oriented x3 Sensorium/orientation: alert Psych Common normals: mental status grossly normal, thought process normal, cooperative, affect normal, speech normal and activity/motor behavior normal Speech: normal speech Thought process: normal thought process Results Additional Findings Additional findings: If on a controlled substance or opioids, I have checked an [place] report on this patient and there are no aberrancies noted in the prescribing history.??If on a controlled substance or opioid a drug screen was completed and reviewed within the last year, and if there has not been a drug screen completed we ordered one today to monitor higher risk, state monitored pain medication use. As part of providing excellent, safe, comprehensive care, the following was completed at our patient's visit: 1. A medication reconciliation and review to ensure accurate knowledge of current/active medications, including asking our patients to inform us about any [id number] medications or herbal remedies/nutritional supplements/alternative remedies. 2. A review to specifically ensure our patients have had annual screening for screening for depression, screening for tobacco use, and screening for unhealthy alcohol use. For concerning screenings had a discussion with the patient, provided patient education, and recommended follow-up with primary care provider when appropriate. If patient noted with a risk of falling, they received education on strength, gait, and balance training to prevent future risk of falling. Portions of this note may have been carried over from the previous visit and updated as appropriate. Please note this office utilizes paper charting in addition to the electronic medical record. A list of current medications, vitals, and PMH is available there as the clinical staff outside of myself do not have access to [employer] charting during the clinic day operations. As part of providing quality comprehensive care the current medications, vitals, and PMH were reviewed in the paper chart. Assessment and Plan Assessment and Plan (1) Sacroiliitis: (2) Chronic use of opiate drug for therapeutic purpose: (3) Lumbar stenosis with neurogenic claudication: (4) Lumbar spondylosis: (5) Chronic anticoagulation: Plan as noted on exam significant SIJ pain, no evidence of radiculopathy or reported NC. I do believe her last left and right L4-5 L5-S1 TFESI providing significant improvement ongoing as noted on exam. will perform repeat left sij injection under fluoroscopy, previous injection provided >50% improvement greater than 3 months. continue current medications. f/u 2 weeks after injection
== END 2025-01-30 09:29 | disposition home or self-care (01) ==
LOC: PM 09:28
PROVIDERS: PCP Internal Medicine; Visit Provider Nurse Practitioner
DX: M46.1 Sacroiliitis, not elsewhere classified (principal); Z79.891 Long term (current) use of opiate analgesic; M48.062 Spinal stenosis, lumbar region with neurogenic claudication; M47.816 Spondylosis without myelopathy or radiculopathy, lumbar region; Z79.01 Long term (current) use of anticoagulants
CPT/HCPCS: G0463

== ENCOUNTER 2025-02-11 10:33 | Day surgery (SDC) | payer MEDICARE, SELFPAY ==
--- OUTSIDE RECORDS SUMMARY | 2025-02-11 10:36 | XMS_ITS | Encounter Summary ---
Author Organization [facility] Address [address] [place] [address] Care Team Providers Care Wood Patternmaker Apprentice Name Role Phone Shaikh BEREKET Denis Primary Care Provider [phone] Jazmín Calvillo HAND CLOTH FOLDER Unavailable [phone] Renny Hansen MD Primary Care Provider [phone] Renny Hansen MD Unavailable [phone] Cindi Jenkins GLAZE WIPER Unavailable [phone] Lias Ramirez LPN Unavailable Unavailable Encounter Details Date Type Department Care Team (Late st Contact Info) Description 03/02/2024 Clinisync Result Encounter [facility] External Department Unsolicited Shaikh Denis MD [address] [place] [address] Social History Tobacco Use Types Packs/Day Years Used Date Smoking Tobacco: Former Cigarettes Passive Smoke Exposure: Past Alcohol Use Standard Drinks/Week Comments Yes 0 (1 standard drink = 0.6 oz pur e alcohol) OCCASSIONAL Humiliation, Afraid, Rape, and Kick questionnair e Answer Date Recorded Within the last year, have y ou been afraid of your partner or ex-partner? No 08/30/2023 Within the last year, have y ou been humiliated or emotionally abused in other ways by your partner or ex-partner? No Within the last year, have y ou been kicked, hit, slapped, or otherwise physically hurt by your partner or ex-partner? No 08/30/2023 Within the last year, have y ou been raped or forced to have any kind of sexual activity by your partner or ex-partner? No 08/30/2023 Social Connection and Isolation Panel [NHANES] A nswer Date Recorded In a typical week, how many times do you talk on the phone with family, friends, or neighbors? Twice a week 08/30/2023 How often do you get togethe r with friends or relatives? Twice a week 08/30/2023 How often do you attend yazdanism or yazidism serv ices? Patient declined 08/30/2023 Do you belong to any clubs o r organizations such as yazdanism groups, unions, fraternal or athletic groups, or school groups? Yes 08/30/2023 Attends Club or Organization Meetings Not on fran e 08/30/2023 Are you , , di vorced, , never , or living with a partner? 08/30/2023 AUDIT-C Answer Date Recorded Q1: How often do you have a drink containing alc ohol? Patient declined 08/30/2023 Q2: How many drinks containi ng alcohol do you have on a typical day when you are drinking? Patient declined 08/30/2023 Q3: How often do you have si x or more drinks on one occasion? Patient declined 08/30/2023 Overall Financial Resource Strain (CARDIA) Answe r Date Recorded How hard is it for you to pa y for the very basics like food, housing, medical care, and heating? Not hard at all 08/30/2023 PHQ-2 Answer Date Recorded Patient Health Questionnaire-2 Score 0 02/27/2024 [facility] - Occupational Stress Questionnaire Answer Date Recorded Do you feel stress - tense, restless, nervous, or anxious, or unable to sleep at night because your mind is troubled all the time - these days? Not at all 08/30/2023 Exercise Vital Sign Answer Date Recorde d On average, how many days pe r week do you engage in moderate to strenuous exercise (like a brisk walk)? Patient declined On average, how many minutes do you engage in exercise at this level? Patient declined 08/30/2023 Hunger Vital Sign Answer Date Recorded Within the past 12 months, y ou worried that your food would run out before you got the money to buy more. Patient declined Within the past 12 months, t he food you bought just didn't last and you didn't have money to get more. Patient declined PRAPARE - Transportation Answer Date Re corded In the past 12 months, has l ack of transportation kept you from medical appointments or from getting medications? No 08/12 In the past 12 months, has l ack of transportation kept you from meetings, work, or from getting things needed for daily living? No 08/30/2023 Housing Stability Vital Sign Answer Ananda e Recorded In the last 12 months, was t here a time when you were not able to pay the mortgage or rent on time? No 08/30/20 23 Number of Places Lived in the Last Year Not on f ile 08/30/2023 In the last 12 months, was t here a time when you did not have a steady place to sleep or slept in a assisted (including now)? Patient refused 08/30/2023 Comments Unknown Sex and Gender Information Value Date Recorded Sex Assigned at Not on file Legal Sex Female 6:35 PM EDT Gender Identity Not on file Sexual Orientation Not on file documented as of this encounter Plan of Treatment Upcoming Encounters Date Type Department Care Team (Late st Contact Info) Description 02/18/2025 11:30 AM EDT Office Visit [facility] [address] [facility] [address] [place] [address] Renny Hansen MD [address] [facility] [address] [place] [address] documented as of this encounter Procedures Procedure Name Priority Date/Time Associated Diagnosis Comments CA ECHO DOPPLER COMPLETE 03/02/2024 9:05 AM EDT documented in this encounter Results * CA ECHO DOPPLER COMPLETE (03/02/2024 9:05 AM EDT) Anatomical Region Laterality Modality Other 03/02/2024 9:05 AM EDT Narrative 03/02/2024 9:06 AM EDT The [address] [address] Cardiology Report Signed Patient: MAXIMUS STARKS MR#: [id number] : 1945 Acct:[id number] Age/Sex: 78 / F ADM Date: 02/29/24 Loc: CARD Attending Dr: Shaikh Cira Kilgore Ordering Physician: Shaikh Magui Denis Date of Service: 02/29/24 Procedure(s): CA echo doppler complete Accession Number(s): [id number] cc: Shaikh Magui Denis Patient Name: MAXIMUS STARKS MR#: [id number] : 1945 Exam Date: 02/29/2024 Ordering Doctor: Shaikh Shay Denis . ECHOCARDIOGRAM REPORT PROCEDURE: CA ECHO DOPPLER COMPLETE INDICATIONS: Heart failure, COPD COMPARISON: None. DESCRIPTION: COMPLETE ECHOCARDIOGRAM Real-time transthoracic echocardiography with 2D, M-mode, spectral and color flow Doppler performed. QUALITY: Technical quality was adequate. 59 , 245#, BP 136/74 LEFT VENTRICLE: Normal chamber size. Mild concentric left ventricular hypertrophy. Normal systolic function. LV EF: Normal left ventricular ejection fraction, (>55%). DIASTOLIC: Grade III diastolic dysfunction. ATRIAL SEPTUM: Visually appears intact. LEFT ATRIUM: Moderate dilatation. RIGHT ATRIUM: Mild dilatation. RIGHT VENTRICLE: Normal chamber size. Normal systolic function. Pacer wire present. TRICUSPID VALVE: Normal mobility and thickness. No stenosis with mild regurgitation. Doppler studies reveal severely (>60) elevated right sided pressures. RVSP 63 mmHg MITRAL VALVE: Normal mobility and thickness. No evidence of mitral valve stenosis. Mild mitral annular calcification. Trivial mitral regurgitation. AORTIC VALVE: Normal trileaflet appearance. No visible sclerosis. Normal leaflet mobility. No evidence of aortic valve stenosis. No aortic regurgitation. AORTIC ROOT: Normal diameter and appearance. PULMONIC VALVE: Normal thickness and mobility. No stenosis. Trivial regurgitation. PERICARDIUM: No evidence of pericardial effusion. IVC: IVC is dilated (2.4 cm) with no collapse. PLEURA: CONCLUSION: 1. Mild concentric left ventricular hypertrophy with normal systolic function. LVEF is 55%. 2. Normal right ventricular size and systolic function. 3. Grade 3 diastolic dysfunction. 4. Mild tricuspid regurgitation. 5. Severely elevated right-sided pressures. RVSP is 63 mmHg. Adult Echocardiography Procedure Report Left Ventricle LVEDD (3.7 - 5.6 cm): 4.86 cm LVESD (2.2 - 4.0 cm): 2.91 cm LVIVS thickness (0.6 - 1.2 cm): 1.12 cm LVPW thickness (0.5 - 1.0 cm): 1.19 cm e': 0.09 m/s E - e': 14.27 LVOT Max Gradient: 4.18 mm[Hg] LVOT Area (cm2): 1.02 m/s Peak Velocity (LVOT): 1.02 m/s Mean Velocity (LVOT): 0.59 m/s LVOT Diameter 2.37 cm Left Atrium LA Volume Index (2D A2C): 47.27 ml/m2 Left Atrium Systolic Dimension: 3.31 cm Mitral Valve MV E to A Ratio: 2.26 Mitral Valve A-Wave Peak Velocity: 0.58 m/s Mitral Valve E-Wave Peak Velocity: 1.31 m/s Right Ventricle Aorta AO Root Diam: 3.42 cm Aortic Valve AoV Area (Peak Jovani): 2.62 cm2, 2.62 cm2 AoV Area (VTI): 2.40 cm2, 2.40 cm2 Peak Velocity(Antegrade Flow): 1.72 m/s Peak Gradient(Antegrade Flow): 11.86 mm[Hg] Mean Velocity(Antegrade Flow): 1.16 m/s Mean Gradient(Antegrade Flow): 6.10 mm[Hg] Velocity Time Integral: 42.86 cm Tricuspid Valve Peak Velocity (Regurgitant Flow): 3.45 m/s Pulmonic Valve Peak Velocity: 0.97 m/s Peak Gradient: 3.75 mm[Hg] Right Atrium Right Atrium Systolic Pressure: 52.04 ml, 52.04 ml Dictated by: Sakina Salazar M.D. on 03/02/2024 at 09:01 Approved by: Sakina Salazar M.D. on 03/02/2024 at 09:05 Dictated By: SAKINA SALAZAR Signed By: 03/02/24905 DD/ 4 TD/TT: Farmer And Grazier: Procedure Note Radiology, Radiologist, MD - 03/02/2024 [place] [address] Cardiology Report Signed Patient: MAXIMUS STARKS TMR#: [id number] : 8Acct:[id number] Age/Sex: 78 / FADM Date: 02/29/24 Loc: CARD Attending Dr: Shaikh Cira Kilgore Ordering Physician: Shaikh Magui Denis Date of Service: 02/29/24 Procedure(s): CA echo doppler complete Accession Number(s): [id number] cc: Shaikh Magui Denis Patient Name: MAXIMUS STARKS MR#: [id number] : 1945 Exam Date: 02/29/2024 Ordering Doctor: Shaikh Shay Denis . ECHOCARDIOGRAM REPORT PROCEDURE: CA ECHO DOPPLER COMPLETE INDICATIONS: Heart failure, COPD COMPARISON: None. DESCRIPTION: COMPLETE ECHOCARDIOGRAM Real-time transthoracic echocardiography with 2D, M-mode, spectral and color flow Dopplerperformed. QUALITY: Technical quality was adequate. 59 , 245#, BP 136/74 LEFT VENTRICLE: Normal chamber size. Mild concentric left ventricular hypertrophy. Normal systolic function. LV EF: Normal left ventricular ejection fraction, (>55%). DIASTOLIC: Grade III diastolic dysfunction. ATRIAL SEPTUM: Visually appears intact. LEFT ATRIUM: Moderate dilatation. RIGHT ATRIUM: Mild dilatation. RIGHT VENTRICLE: Normal chamber size. Normal systolic function.Pacer wire present. TRICUSPID VALVE: Normal mobility and thickness. No stenosis with mild regurgitation. Doppler studies reveal severely (>60) elevated right sided pressures. RVSP 63 mmHg MITRAL VALVE: Normal mobility and thickness. No evidence of mitralvalve stenosis. Mild mitral annular calcification. Trivial mitralregurgitation. AORTIC VALVE: Normal trileaflet appearance. No visible sclerosis.Normal leaflet mobility. No evidence of aortic valve stenosis. No aortic regurgitation. AORTIC ROOT: Normal diameter and appearance. PULMONIC VALVE: Normal thickness and mobility. No stenosis. Trivial regurgitation. PERICARDIUM: No evidence of pericardial effusion. IVC: IVC is dilated (2.4 cm) with no collapse. PLEURA: CONCLUSION: 1. Mild concentric left ventricular hypertrophy with normal systolicfunction. LVEF is 55%. 2. Normal right ventricular size and systolic function. 3. Grade 3 diastolic dysfunction. 4. Mild tricuspid regurgitation. 5. Severely elevated right-sided pressures. RVSP is 63 mmHg. Adult Echocardiography Procedure Report Left Ventricle LVEDD (3.7 - 5.6 cm): 4.86 cm LVESD (2.2 - 4.0 cm): 2.91 cm LVIVS thickness (0.6 - 1.2 cm): 1.12 cm LVPW thickness (0.5 - 1.0 cm): 1.19 cm e': 0.09 m/s E - e': 14.27 LVOT Max Gradient: 4.18 mm[Hg] LVOT Area (cm2): 1.02 m/s Peak Velocity (LVOT): 1.02 m/s Mean Velocity (LVOT): 0.59 m/s LVOT Diameter 2.37 cm Left Atrium LA Volume Index (2D A2C): 47.27 ml/m2 Left Atrium Systolic Dimension: 3.31 cm Mitral Valve MV E to A Ratio: 2.26 Mitral Valve A-Wave Peak Velocity: 0.58 m/s Mitral Valve E-Wave Peak Velocity: 1.31 m/s Right Ventricle Aorta AO Root Diam: 3.42 cm Aortic Valve AoV Area (Peak Jovani): 2.62 cm2, 2.62 cm2 AoV Area (VTI): 2.40 cm2, 2.40 cm2 Peak Velocity(Antegrade Flow): 1.72 m/s Peak Gradient(Antegrade Flow): 11.86 mm[Hg] Mean Velocity(Antegrade Flow): 1.16 m/s Mean Gradient(Antegrade Flow): 6.10 mm[Hg] Velocity Time Integral: 42.86 cm Tricuspid Valve Peak Velocity (Regurgitant Flow): 3.45 m/s Pulmonic Valve Peak Velocity: 0.97 m/s Peak Gradient: 3.75 mm[Hg] Right Atrium Right Atrium Systolic Pressure: 52.04 ml, 52.04 ml Dictated by: Sakina Salazar M.D. on 03/02/2024 at 09:01 Approved by: Sakina Salazar M.D. on 03/02/2024 at 09:05 Dictated By: SAKINA SALAZAR Signed By:03/02/24905 DD/ 4 TD/TT: Farmer And Grazier: Shaikh Cira [facility] Final Result documented in this encounter Visit Diagnoses Not on filedocumented in this encounter Additional Health Concerns Assessment Noted Time PHQ-9 Depression Total Score: 1 09/06/20 23 2:00 PM EST documented as of this encounter Care Teams Wood Patternmaker Apprentice Relationship Specialty Start Date End Date Shaikh Denis MD [address] [place] [address] PCP - General Internal Medicine 10/17/23 05/16/24 Renny Hansen MD [address] [facility] [address] [place] [address] PCP - General Internal Medicine 09/19/24 Renny Hansen MD [address] [facility] [address] [place] [address] PCP - Medical [facility] 09/12/2409/11 Jazmín Calvillo NP [address] [place] [address] Nurse Practitioner Family Medicine 05/17/24 09/18/24 Cindi Jenkins LSW Wiping Rag Washer Family Medicine 11/06/24 12/05/24 Lisa Ramirez LPN 12/05/24 documented as of this encounter
--- OUTSIDE RECORDS SUMMARY | 2025-02-11 10:36 | XMS_ITS | Encounter Summary ---
Author Organization [facility] Address [address] [facility] [place] [address] Care Team Providers Care Vp Delivery Name Role Phone Renny Hansen MD Primary Care Provider [phone] Renny Hansen MD Unavailable [phone] Lisa Ramirez LPN Unavailable Unavailable Encounter Details Date Type Department Care Team (Late st Contact Info) Description 01/04/2025 Abstract [facility] [address] [facility] 110 [place] [id number] Renny Hansen MD 112 [facility] [address] [place] [address] Social History Tobacco Use Types Packs/Day Years Used Date Smoking Tobacco: Former Cigarettes 1 29 S tarted: 1966 Passive Smoke Exposure: Past Alcohol Use Standard Drinks/Week Comments Yes 0 (1 standard drink = 0.6 oz pur e alcohol) OCCASSIONAL B1300 Health Literacy Answer Date Recor ded How often do you need to hav e someone help you when you read instructions, pamphlets, or other written material from your doctor or pharmacy? Never 11/12/2024 Humiliation, Afraid, Rape, and Kick questionnair e [...] family, friends, or neighbors? Twice a week 11/13/19 25 How often do you get togethe r with friends or relatives? Twice a week 11/12/2024 How often do you attend chur or yazidism services? Patient declined 11/12/2024 Do you belong to any clubs o r organizations such as caodaism groups, unions, fraternal or athletic groups, or school groups? No 11/12/2024 How often do you attend meet ings of the clubs or organizations you belong to? Patient declined 11/12/2024 Are you , , di vorced, , never , or living with a partner? Living with partner 11/12/2024 AUDIT-C Answer Date Recorded Q1: How often do you have a drink containing alc ohol? Patient declined 10/10/2024 Q2: How many drinks containi ng alcohol do you have on a typical day when you are drinking? Patient declined 10/10/2024 Q3: How often do you have si x or more drinks on one occasion? Patient declined 10/10/2024 Overall Financial Resource Strain (CARDIA) Answe r Date Recorded How hard is it for you to pa y for the very basics like food, housing, medical care, and heating? Not hard at all 11/12/2024 PHQ-2 Answer Date Recorded Patient Health Questionnaire-2 Score 0 10/17/2024 [facility] - Occupational Stress Questionnaire Answer Date Recorded Do you feel stress - tense, restless, nervous, or anxious, or unable to sleep at night because your mind is troubled all the time - these days? To some extent 11/12/2024 Exercise Vital Sign Answer Date Recorde d On average, how many days pe r week do you engage in moderate to strenuous exercise (like a brisk walk)? 0 days Minutes of Exercise per Session Not on file 11/12/2024 Hunger Vital Sign Answer Date Recorded Within the past 12 months, y ou worried that your food would run out before you got the money to buy more. Never true 11/13/19 25 Within the past 12 months, t he food you bought just didn't last and you didn't have money to get more. Never true 11/12/2024 PRAPARE - Transportation Answer Date Re corded In the past 12 months, has l ack of transportation kept you from medical appointments or from getting medications? No 11/2024 In the past 12 months, has l ack of transportation kept you from meetings, work, or from getting things needed for daily living? No 11/12/2024 Housing Stability Vital Sign Answer Ananda e [...] a assisted (including now)? Patient refused 08/30/2023 Housing Stability Vital Sign Answer Ananda e Recorded In the last 12 months, was t here a time when you were not able to pay the mortgage or rent on time? No 11/12/2024 In the past 12 months, how m any times have you moved where you were living? 0 11/12/2024 At any time in the past 12 m [facility], were you homeless or living in a assisted (including now)? No 11/12/2024 Comments Unknown Sex and Gender Information Value Date Recorded Sex Assigned at Not on file Legal Sex Female 6:35 PM EDT Gender Identity Not on file Sexual Orientation Not on file documented as of this encounter Plan of Treatment Upcoming Encounters Date Type Department Care Team (Late st Contact Info) Description 02/18/2025 11:30 AM EDT Office Visit [facility] [address] [facility] 110 [place] [address] Renny Hansen MD 112 [facility] [address] [place] [address] documented as of this encounter Visit Diagnoses Not on filedocumented in this encounter Additional Health Concerns Assessment Noted Time PHQ-9 Depression Total Score: 1 09/06/20 23 2:00 PM EST documented as of this encounter Care Teams Vp Delivery Relationship Specialty Start Date End Date Renny Hansen MD 112 [facility] 110 [place] [address] PCP - General Internal Medicine 09/19/24 Renny Hansen MD [address] [facility] [address] [place] [address] PCP - Medical [place] 09/12/2409/11 Lisa Ramirez LPN 12/05/24 documented as of this encounter
--- OUTSIDE RECORDS SUMMARY | 2025-02-11 10:36 | XMS_ITS | Encounter Summary ---
Author Organization [facility] Address [address] [place] [address] Care Team Providers Care Sawmill Manager Name Role Phone Shaikh BEREKET Denis Primary Care Provider [phone] Jazmín Calvillo NONFARM ANIMAL CARETAKER Unavailable Renny Hansen MD Primary Care Provider [phone] Renny Hansen MD Unavailable [phone] Cnidi Jenkins LATHE WINDER Unavailable [phone] Lisa Ramirez LPN Unavailable Unavailable Encounter Details Date Type Department Care Team (Late st Contact Info) Description 03/01/2024 Clinisync Result Encounter [facility] External Department Unsolicited Shaikh Denis MD [address] [place] [address] Social History Tobacco Use Types Packs/Day Years [...] week 08/30/2023 How often do you attend hoahaoism or jewish serv ices? Patient declined 08/30/2023 Do you belong to any clubs o r organizations such as hoahaoism groups, unions, fraternal or athletic groups, or [...] Recorded Patient Health Questionnaire-2 Score 0 02/27/2024 [facility] - Occupational Stress [...] place to sleep or slept in a halfway (including now)? Patient refused 08/30/2023 Comments Unknown Sex and Gender Information Value Date Recorded Sex Assigned at Not on file Legal Sex Female 6:35 PM EDT Gender Identity Not on file Sexual Orientation Not on file documented as of this encounter Plan of Treatment Upcoming Encounters Date Type Department Care Team (Late st Contact Info) Description 02/18/2025 11:30 AM EDT Office Visit [facility] 112 [facility] [address] [place] [address] Renny Hansen MD 112 [facility] [address] [place] [address] documented as of this encounter Procedures Procedure Name Priority Date/Time Associated Diagnosis Comments XR CHEST 2V 03/01/2024 9:53 AM EDT documented in this encounter Results * XR CHEST 2V (03/01/2024 9:53 AM EDT) Anatomical Region Laterality Modality Other 03/01/2024 9:53 AM EDT Narrative 03/01/2024 9:56 AM EDT The [address] [address] XRay Report Signed Patient: BREANN STARKS MR#: [id number] : 1945 Acct:[id number] Age/Sex: 78 / F ADM Date: 02/29/24 Loc: CARD Attending Dr: Shaikh Cira Kilgore Ordering Physician: Shaikh Magui Denis Date of Service: 02/29/24 Procedure(s): XR chest 2V Accession Number(s): [id number] cc: Shaikh Magui Denis The [address] [address] Patient Name: BREANN STARKS MRN: [id number] date: 1945 Sex: F Assigned Patient Location: CARD Current Patient Location: LAB Accession/Order Number: [id number] Exam Date: 02/29/2024 10:05 Report Date: 03/01/2024 09:53 At the request of: SHAIKH CIRA Procedure: XR chest 2V PROCEDURE: XR chest 2V DATE: 02/29/2024 9:05 AM CDT COMPARISONS: 2022 CLINICAL INDICATION: 78 years Female Acute On Chronic Diastolic Heart Failure I50.33 FINDINGS: The heart is slightly prominent and stable. Electronic cardiac device is in stable position. There is slight scattered increased interstitial markings of the lungs likely representing some mild chronic lung changes, stable. Alternatively, this could represent a small amount of interstitial fluid due to congestion. There is no evidence of pleural effusion or pneumothorax. XR/XR chest 2V IMPRESSION: Today's exam shows findings consistent with some chronic lung changes and raises concern for slight mild pulmonary vascular congestion. Electronically authenticated by: ABDIRIZAK MANTILLA Date: 03/01/2024 09:53 Dictated By: Abdirizak Mantilla M.D. Signed By: 03/01/24 0956 DD/ 0953 TD/TT: [place] Farmer: Procedure Note Radiology, Radiologist, MD - 03/01/[address] [address] XRay Report Signed Patient: BREANN STARKS TMR#: [id number] : 8Acct:[id number] Age/Sex: 78 / FADM Date: 02/29/24 Loc: CARD Attending Dr: Shaikh Cira Kilgore Ordering Physician: Shaikh Magui Denis Date of Service: 02/29/24 Procedure(s): XR chest 2V Accession Number(s): [id number] cc: Shaikh Magui Denis [facility] [address] [place], [place] [address] Patient Name: BREANN STARKS MRN: [id number] date: 1945 Sex: F Assigned Patient Location: CARD Current Patient Location: LAB Accession/Order Number: [id number] Exam Date: 02/29/2024 10:05 Report Date: 03/01/2024 09:53 At the request of: SHAIKH CIRA Procedure: XR chest 2V PROCEDURE: XR chest 2V DATE: 02/29/2024 9:05 AM CDT COMPARISONS: 2022 CLINICAL INDICATION: 78 years Female Acute On Chronic Diastolic HeartFailure I50.33 FINDINGS: The heart is slightly prominent and stable. Electronic cardiac device isin stable position. There is slight scattered increased interstitial markings of the lungslikely representing some mild chronic lung changes, stable. Alternatively, thiscould represent a small amount of interstitial fluid due to congestion. There is no evidence of pleural effusion or pneumothorax. XR/XR chest 2V IMPRESSION: Today's exam shows findings consistent with some chronic lung changes and raises concern for slight mild pulmonary vascular congestion. Electronically authenticated by: ABDIRIZAK MANTILLA Date: 03/01/2024 09:53 Dictated By: Abdirizak Mantilla M.D. Signed By:03/01/24 0956 DD/ TD/TT: [place] Farmer: us Shaikh Cira [facility] Final Result documented in this encounter Visit Diagnoses Not on filedocumented in this encounter Additional Health Concerns Assessment Noted Time PHQ-9 Depression Total Score: 1 09/06/20 23 2:00 PM EST documented as of this encounter Care Teams Sawmill Manager Relationship Specialty Start Date End Date Shaikh Denis MD [address] [place] [address] PCP - General Internal Medicine 10/17/23 05/16/24 Renny Hansen MD 112 [facility] [address] [place] [address] PCP - General Internal Medicine 09/19/24 Renny Hansen MD 112 [facility] [address] [place] [address] PCP - Medical [facility] 09/12/2409/11 Jazmín Calvillo NP [address] [place] [address] Nurse Practitioner Family Medicine 05/17/24 09/18/24 Cindi Jenkins LSW Pad Machine Operator Family Medicine 11/06/24 12/05/24 Lisa Ramirez LPN 12/05/24 documented as of this encounter
--- OUTSIDE RECORDS SUMMARY | 2025-02-11 10:36 | XMS_ITS | Encounter Summary ---
Author Organization [facility] Address [address] [place] [address] Care Team Providers Care Wool Presser Name Role Phone Renny Hansen MD Primary Care Provider [phone] Renny Hansen MD Unavailable [phone] Lisa Ramirez LPN Unavailable Unavailable Encounter Details Date Type Department Care Team (Late st Contact Info) Description 01/03/2025 External Result Encounter [facility] External Department Unsolicited Juan Monahan, DO [address] [place] [address] Social History Tobacco Use Types Packs/Day Years [...] friends, or neighbors? Twice a week 11/13/19 How often do you get togethe r with friends or relatives? Twice a week 11/12/2024 How often do you attend chur or mu-ism services? Patient declined 11/12/2024 Do you belong to any clubs o r organizations such as jehovah's witness groups, unions, fraternal or athletic groups, or [...] Recorded Patient Health Questionnaire-2 Score 0 10/17/2024 [facility] Occup[facility] ional Health - Occupational [...] place to sleep or slept in a retirement (including now)? Patient refused 08/30/2023 Housing Stability [...] [facility] in the past [facility] were you homeless or living in a retirement (including now)? No 11/12/2024 Comments Unknown Sex and Gender Information Value Date Recorded Sex Assigned at Not on file Legal Sex Female 6:35 PM EDT Gender Identity Not on file Sexual Orientation Not on file documented as of this encounter Plan of Treatment Upcoming Encounters Date Type Department Care Team (Late st Contact Info) Description 02/18/2025 11:30 AM EDT Office Visit [facility] 112 [facility] [address] [place] [address] Renny Hansen MD [address] [facility] [address] [place] [address] documented as of this encounter Procedures Procedure Name Priority Date/Time Associated Diagnosis Comments US BYRD 01/03/2025 3:32 PM EDT documented in this encounter Results * US Axilla (01/03/2025 3:32 PM EDT) Anatomical Region Laterality Modality Radiographic Jayashree ging 01/03/2025 3:32 PM EDT Impressions 01/03/2025 3:44 PM EDT Enlarged lymph nodes with cortical thickening and hyperemia persists and is a worrisome finding. Per patient request consultation with Dr. Benton was performed. Although the lymph nodes could be reactive due to possible infectious etiology, Underlying lymphoproliferative or neoplastic process should also be considered. Given the improved joint mobility, it is conceivable this could be reactive/inflammatory/infectious in etiology. Please note that Percutaneous sampling could be beneficial to rule out possibility of an underlying lymphoproliferative/malignant process. Alternatively, short-term follow-up imaging in 3-6 months may be considered Impression dictated by: Dimitrios Blanco M.D.01/03/2025 3:42 PM Dictation Location: [facility] Tech: Ghazal Wilson Transcribed By: STAR 01/03/25 1542 Dictated By: Dimitrios Blanco MD 01/03/25 1532 Signed By: <Electronically signed by Dimitrios Blanco MD in [place]> 01/03/25 1542 Narrative 01/03/2025 3:44 PM EDT [place] [address] Ultrasound Report Signed Patient: Breann Starks MR#: [id number] : 1945 Acct:[id number] Age/Sex: 79 / F ADM Date: 01/03/25 Loc: Room: Type: [facility] RCR Attending Dr: Katharina Toledo APRN Ordering Provider: Juan Monahan II, DO Date of Service: 01/03/25 US/US axilla: R59.0 - Localized enlarged lymph nodes Copies to: CONSTANTINE Owen II DO Left axillary ultrasound INDICATION: Lymphadenopathy COMPARISON: [...] lymph nodes on today's examination. US/US axilla Procedure Note Radiology, Radiologist, - 01/03/2025 [facility] [place] [address] [place] [address] Ultrasound Report Signed Patient: Breann Starks TMR#: [id number] : 8Acct:[id number] Age/Sex: 79 / FADM Date: 01/03/25 [facility]: [facility] Att[facility] Dr: Katharina Toledo APRN Ordering Provider: Juan Monahan II, DO Date of Service: 01/03/25 US/US axilla: R59.0 - Localized enlarged lymphnodes Copies to: CONSTANTINE Owen II, DO Left axillary ultrasound INDICATION: Lymphadenopathy COMPARISON: Axillary ultrasound 10/16/2024, CT shoulder 07/01/2024 FINDINGS: Multiple enlarged lymph nodes identified within the left axillawith cortical thickening largest lymph node measuring 4.4 x 1.4 x 1.8 cm. Largest lymph node on theprior examination measured 2.8 x 1.6 x 1.2 cm Cortical thickening and increased vascularitywithin the cortices of the lymph nodes on today's examination. US/US axilla IMPRESSION: Enlarged lymph nodes with cortical thickening and hyperemia persists andis a worrisome finding. Per patient request consultation with Dr. Benton was performed. Althoughthe lymph nodes could be reactive due to possible infectious etiology, Underlyinglymphoproliferative or neoplastic process should also be considered. Given the improved joint mobility, it isconceivable this could be reactive/inflammatory/infectious in etiology. Please note thatPercutaneous sampling could be beneficial to rule out possibility of an underlyinglymphoproliferative/malignant process. Alternatively, short-term follow-up imaging in 3-6 months may beconsidered Impression dictated by: Dimitrios Blanco M.D.01/03/2025 3:42 PM Dictation Location: [facility] Tech: Ghazal Wilson Transcribed By: STAR 01/03/25 1542 Dictated By: Dimitrios Blanco MD 01/03/25 1532 Signed By: <Electronically signed by Dimitrios Blanco MD in [place]> 01/03/25 1542 Juan Monahan DO IMG XR PROCEDURES Final R esult documented in this encounter Visit Diagnoses Not on filedocumented in this encounter Additional Health Concerns Assessment Noted Time PHQ-9 Depression Total Score: 1 09/06/20 23 2:00 PM EST documented as of this encounter Care Teams Wool Presser Relationship Specialty Start Date End Date Renny Hansen MD [address] [facility] [address] [place] [address] PCP - General Internal Medicine 09/19/24 Renny Hansen MD [address] [facility] [address] [address] [place] [address] PCP - Medical [place] 09/12/2409/11 Lisa Ramirez LPN 12/05/24 documented as of this encounter
--- OUTSIDE RECORDS SUMMARY | 2025-02-11 10:36 | XMS_ITS | Clinical Summary ---
Author Organization [facility] Address [address] [place] [address] Care Team Providers Care Senior Health Educator Name Role Phone Renny Hansen MD Primary Care Provider [phone] Renny Hansen MD Unavailable [phone] Lisa Ramirez LPN Unavailable Unavailable Allergies Active Allergy Reactions Criticality Noted Date Comments Digoxin Rash Low 10/17/2023 Nsaids 11/16/2023 Other Reaction(s): HEART ISSUES Wound Dressing Adhesive Rash Low 11/18/2023 Medications Multiple Vitamins-Mineral s (CENTRUM SILVER 50+WOMEN PO) Take 1 tablet by mouth in the morning. Active flecainide (Tambocor) 100 MG tablet Take 100 mg by mouth every 12 (twelve) hours 03/08/20 24 Active baclofen (Lioresal) 10 MG tablet Take 10 mg by mouth in the morning and 10 mg in the evening and 10 mg before bedtime. 06/21/20 24 Active HYDROcodone-acet aminophen (Chrisney) 5-325 MG tablet Take 1 tablet by mouth in the morning and 1 tablet in the evening and 1 tablet before bedtime. 06/21/20 24 Active cholecalciferol (Natural Vitamin D-3) 5,000 Units tabletIndication s:Vitamin D deficiency Take 1 tablet (5,000 Units) by mouth Daily 90 tablet 1 08/24/20 24 Active acetaminophen (Tylenol) 500 MG tabletIndication s:Axillary lymphadenopathy, Left arm pain Take 1,000 mg by mouth every 6 (six) hours if needed for mild pain Active spironolactone (Aldactone) 50 MG tablet Take 50 mg by mouth in the morning. 09/24/19 25 Active ipratropium-albu terol (Duo-Neb) 0.5-2.5 mg/3 mL nebulizer solution Take 3 mL by nebulization in the morning and 3 mL at noon and 3 mL in the evening and 3 mL before bedtime. 05/25/20 24 Active hydrocortisone (West-Andres) 0.2 % creamIndications :Phlebitis of left upper extremity Apply topically 2 (two) times a day 45 g 1 10/17/19 25 Active verapamil SR (Calan SR) 180 MG ER tablet Take 360 mg by mouth in the morning. 11/12/19 25 Active penicillin v potassium (Veetid) 500 MG tablet Take 500 mg by mouth in the morning and 500 mg at noon and 500 mg in the evening and 500 mg before bedtime. Active omeprazole (PriLOSEC) [address] capsuleIndicatio ns:Peptic ulcer, site unspecified, unspecified as acute or chronic, without hemorrhage or perforation,Pept ic ulcer Take 1 capsule (40 mg) by mouth Daily 100 capsule 3 01/19/20 25 Active apixaban (Eliquis) 5 MG tabletIndication s:Persistent atrial fibrillation (HCC) (CMS/HCC) Take 1 tablet (5 mg) by mouth in the morning and 1 tablet (5 mg) before bedtime. 180 tablet 1 02/09/20 25 025 Active omeprazole (PriLOSEC) [address] capsuleIndicatio ns:Peptic ulcer, site unspecified, unspecified as acute or chronic, without hemorrhage or perforation,Pept ic ulcer Take 1 capsule (40 mg) by mouth Daily 90 capsule 1 07/09/20 24 025 Discontin ued(Reord er) apixaban (Eliquis) 5 MG tabletIndication s:Persistent atrial fibrillation (HCC) (CMS/HCC) Take 1 tablet (5 mg) by mouth in the morning and 1 tablet (5 mg) before bedtime. 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 Likely from occult GI blood loss. EGD - no sig pathology 03/05, colonoscopy - no sig pathology but limited visualization due to anatomy. Hb stable Patient instructed to stop using all kinds of NSAIDS. On PO omeprazole. Recheck CBC in one month, if still low, will need IV iron and/or oncology referral Assessment & Plan (03/12/2024 2:22 PM EDT): Microcytic anemia, noted on labs, most recent Hb 8.4, Started on PO iron. Likely from occult GI blood loss. EGD - no sig pathology 03/05, colonoscopy - no sig pathology but limited visualization due to anatomy. Recheck CBC before next appt Patient instructed to stop using all kinds of NSAIDS. On PO omeprazole. Acute on chronic diastolic (congestive) heart fa ilure 02/27/2024 Assessment & Plan (06/02/2024 10:19 AM EDT): Discussed with Dr. Mahan's office pt symptoms and clinical condition today in office. Sent pt to ER for further workup and tx of suspected CHF exacerbation. Assessment & Plan (03/12/2024 2:20 PM EDT): Hx of HFpEF, grade 3 diastolic dysfunction, ECHO repeated 03/05 - severe right sided pressures, normal LVEF, diastolic dysfunction and dilated IVC. Was given lasix 40 q12 - symptoms improved. Switch to Po lasix 40 mg daily Check BMP before next appt. Follow up with cardiology. Assessment & Plan (02/27/2024 10:42 AM EDT): Hx of HFpEF, grade 3 diastolic dysfunction , last ECHO in 11/2021 Hx of Afib, HTN, morbid obesity, COPD - presented with SOB, LE edema. Likely acute on chronic diastolic HF, Will order CBC, CMP, BNP, CXR. Order ECHO to assess cardiac structure. Cardiac pacemaker in situ 01/19/2024 Diastolic dysfunction 01/19/2024 Arthritis of right acromioclavicular joint 11/07 Closed fracture of fifth metatarsal bone 024 Contusion of left shoulder 11/07/2023 Impingement syndrome of right shoulder 4 Sick sinus syndrome (I49.5) 11/07/2023 Assessment & Plan (11/07/2023 3:19 PM EST): S/p PPM Hiatal hernia 10/17/2023 Shoulder pain 10/17/2023 Assessment & Plan (04/11/2024 2:10 PM EDT): Severe left shoulder pain. Prior hx of rotator cuff repair and then had rever shoulder arthoplasty about 2-3 years ago. Pain is persistent, with severely restricted ROM. Has little to no mobility due to pain. XR - hardware in place. MRI performed 04/10/24 - result not available to review Persistent left shoulder pain, unable to use NSAIDS due to anemia, concurrent use of DOACs. Tylenol does not help. Using 5 mg oxycodone as needed and its working for her. Refer to orthopedic (dr estes) as per patient's request Assessment & Plan (03/12/2024 2:23 PM EDT): Severe left shoulder pain. Prior hx of rotator cuff repair and then had rever shoulder arthoplasty about 2-3 years ago. Pain is persistent, with severely restricted ROM. Has little to no mobility due to pain. XR - hardware in place. MRI ordered, awaiting approval. Will order Chrisney as needed as it helped with pain. Seeing orthopedic surgery. Assessment & Plan (02/27/2024 10:46 AM EDT): Severe left shoulder pain. Prior hx of rotator cuff repair and then had rever shoulder arthoplasty about 2-3 years ago. Pain is persistent, with severely restricted ROM. Has little to no mobility due to pain. XR - hardware in place. Will get an MRI - as severely restricted ROM, severe/persistent pain, prior hx of 2 shoulder surgeries and she likely has soft tissue/ligamental injury given her prior hx of surgery and current presentation. Recommended to stop using Motrin as she has hx of HF, and using eliquis Will order norco for short term pain control. Educated on safe use of narcotics/risk of tolerance/addiction. Acute pain of left knee 09/06/2023 Arthritis of left shoulder region 09/06/2023 Peptic ulcer disease 09/06/2023 Chronic bilateral low back pain with sciatica Assessment & Plan (12/29/2023 2:38 PM EDT): Chronic LBP with bilateral radiculopathy. MRI shows multilevel degenerative changes, worse at L4-5. Could not tolerate gabapentin and lyrica Patient had spidural spinal injection and that seems to be helping her pain. Pain is reasonably controlled. Monitor. Assessment & Plan (11/28/2023 12:17 PM EDT): Chronic LBP with bilateral radiculopathy. Worsening. Follows Pain is worse at night and interferes with her sleep. No fecal/urinary incontinence. MRI shows multilevel degenerative changes, worse at L4-5. No improvement with gabapentin 300, she could not tolerate lyrica due to side effects. She was asked to increase gabapentin to 600 mg and it seems to have helped her. Assessment & Plan (11/07/2023 3:18 PM EST): Chronic LBP with bilateral radiculopathy. Worsening. Follows Pain is worse at night and interferes with her sleep. No fecal/urinary incontinence. MRI shows multilevel degenerative changes, worse at L4-5. No improvement with gabapentin Trial of Lyrica Patient asked to get in touch with Pain to see if they would recommend Epidural injections. Referred to [facility] for their input. Assessment & Plan (09/06/2023 2:48 PM EST): Chronic LBP with bilateral radiculopathy. Worsening. Follows Pain clinic and scheduled to get an MRI. Pain is worse at night and interferes with her sleep. No fecal/urinary incontinence. Trial of gabapentin. Patient counseled and educated on adverse effects, drug interactions and to reach out to office/pharmacy if questions or concerns related to new medications. Likely lumbar spinal stenosis -responsible for her symptoms. Medicare annual wellness visit, subsequent 09/06 Assessment & Plan (09/06/2023 2:49 PM EST): Patient here for medicare wellness. Doing well overall other than chronic back pain. Upto date on Colon Cancer screening, breast cancer screening. Reviewed medications, counseled on lifestyle measures, importance of compliance. 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 Follows [facility] cardiology. On Xarelto for stroke px. Also uses Flecainide, Verapamil. Assessment & Plan (11/07/2023 3:16 PM EST): S/P PPM. Follows [facility] cardiology. On Xarelto for stroke px. Also uses Flecainide, Verapamil. Assessment & Plan (09/06/2023 2:46 PM EST): S/P PPM. Follows [facility] cardiology. On Xarelto for stroke px. Sinus node dysfunction 10/07/2020 Overview (09/06/2023): Last Assessment & Plan: - S/p PPM [employer] -We will have her scheduled for device check Obesity 12/29/2012 Overview (09/06/2023): Last Assessment & Plan: Obesity is slightly improving -She was to 255 pounds last visit and today she is 241 pounds -Advised to continue working on weight loss and lifestyle changes Assessment & Plan (12/29/2023 2:39 PM EDT): Patient educated on risks of increased cardiovascular morbidity/mortality and poor health outcomes associated with unhealthy bodyweight. Patient counseled on lifestyle modifications, dietary restrictions. Patient encouraged to limit caloric intake and increase physical activity. Therapeutic and surgical options reviewed with patient . Patient was offered opportunity to ask questions and address their concern. Prescribed low caloric diet for the patient. She is not interested currently in GLP agonists. Discussed using Raf for weight loss and educated on its side effects. Essential hypertension 01/13/2012 Overview (09/06/2023): Last Assessment & Plan: Hypertension is stable -ct medications: aldactone, verapamil, lasix 20mg -managed per PCP Assessment & Plan (12/29/2023 2:37 PM EDT): BP well controlled. On average less than 130/90. Tolerating Anti hypertensive w/o adverse effects. Denies lightheadedness, dizziness, syncope, presyncope. Patient encouraged to continue with home BP monitoring and call office if he experiences orthostatic symptoms or persistently elevated BP. C/w verapamil and aldactone Assessment & Plan (09/06/2023 2:46 PM EST): BP well controlled. On average less than 130/90. Tolerating Anti hypertensive w/o adverse effects. Denies lightheadedness, dizziness, syncope, presyncope. Patient encouraged to continue with home BP monitoring and call office if he experiences orthostatic symptoms or persistently elevated BP. Chronic obstructive lung disease 01/12/2012 Assessment & Plan (12/29/2023 2:36 PM EDT): Does not take anything for it. Fairly well controlled. Assessment & Plan (11/07/2023 3:17 PM EST): Does not take anything for it. Fairly well controlled. Had recent exacerbation with URTI - symptoms improved now. Coronary atherosclerosis 01/12/2012 Overview (09/06/2023): Last Assessment & Plan: Coronary artery disease is stable -no CP or LEA -last cath 2010, mild disease no PCI / stent -continue medications Edema 01/12/2012 Paroxysmal supraventricular tachycardia 01/12/20 12 Overview (09/06/2023): SHORT IMPROVED. Disorder of bursae of shoulder region 01/12/2012 Resolved Problems Problem Noted Date Diagnosed Date Resolved Date COPD exacerbation 10/17/2023 07/24/2024 Assessment & Plan (10/17/2023 10:59 AM EST): Patient presents with cough, wheezing, SOB, associated sinus, nasal congestion. Symptoms ongoing for 2 weeks. Exam c/w mild COPD exacerbation. Will call in PO prednisone, Benzonatate, azithromycin. Patient asked to use ventolin q4-6 as needed. Instructed to call office if questions or concerns. Go to ED if worsening SOB, wheezing and symptoms poorly controlled even after treatment. Will order an XR - to make sure no Pneumonia Encounters Date Type Department Care Team Description 02/08/2025 Refill [facility] [address] [place] [address] Renny Hansen MD Persistent atrial fibrillation (HCC) (CMS/HCC) 02/06/2025 Patient Outreach [facility] [address] [facility] [place] [address] Saira Chi RN 01/28/2025 [facility] [address] [place] [address] Cindi Jenkins LSW 01/18/2025 Refill [facility] [address] [facility] [address] [place] [phone] Renny Hansen MD Peptic ulcer, site unspecified, unspecified as acute or chronic, without hemorrhage or perforation; Peptic ulcer 01/04/2025 Abstract [facility] [address] [facility] [address] [place] [phone] Renny Hansen MD 01/03/2025 External Result Encounter [facility] Unsolicited Juan Monahan DO 12/21/2024 Clinisync Result Encounter [facility] Unsolicited Provider, Generic External Data 12/17/2024 11:00 AM EDT Office Visit [facility] [address] [facility] [address] [place] [phone] Renny Hansen MD 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 [address] Lisa Ramirez LPN from Last 3 Months Immunizations Immunization Administration Dates Next Due Influenza, High Dose Seasona l, Preservative Free 08/06/2019 Influenza, High-dose Seasona l, Quadrivalent, Preservative Free 09/19/2024 Influenza, Seasonal, Quadriv alent, Adjuvanted 08/25/2023,07/08/2022,08/20/2021,08/04 Influenza, Unspecified 08/25/2023,2021,08/20/2021,08/04,08/06/2019,07/05/2017,06/29/2016 ,06/25/2015,06/12/2015,07/12/2014,07/14 Influenza, injectable, quadrivalent 06/25/2015,1 Influenza, seasonal, injectable 08/07/2013 Influenza, seasonal, intrade rmal, preservative free 06/12/2015 Influenza, trivalent, adjuvanted 07/05/2017,06/12 Pneumococcal Conjugate PCV 13 08/04/2020, 017 Pneumococcal Polysaccharide PPSV23 08/20/2021 RSV, recombinant, protein gamboa bunit RSVpreF, adjuvant reconstitu, 120mcg/0.5mL, PF (Arexvy) 08/25/2023 Family History * Patient is adopted Relation Name Status Comments Father Mother Social History Tobacco Use Types Packs/Day Years Used Date Smoking Tobacco: Former Cigarettes 1 29 S tarted: 1968 Passive Smoke Exposure: Past Tobacco Cessation:Counseling Given: Not Answered Alcohol Use Standard Drinks/Week Comments Yes 0 [...] How often do you attend chur or latter day services? Patient declined 11/12/2024 Do you belong to any clubs o r organizations such as zoroastrian groups, unions, fraternal or athletic groups, or [...] Recorded Patient Health Questionnaire-2 Score 0 10/17/2024 [facility] - Occupational Stress Questionnaire Answer Date Recorded [...] place to sleep or slept in a fci (including now)? Patient refused 08/30/2023 Housing Stability [...] any time in the past 12 m [facility], were you homeless or living in a fci (including now)? No 11/12/2024 Comments Unknown Sex and Gender Information Value Date Recorded Sex Assigned at Not on file Legal Sex Female 6:35 PM EDT Gender Identity Not on file Sexual Orientation Not on file Last Filed Vital Signs Vital Sign Reading Time Taken Comments Blood Pressure 130/68 12/17/2024 10:58 AM EDT Pulse 75 12/17/2024 10:58 AM EDT Temperature 36.9 C (98.4 F) 08/02/2024 10:51 AM EST Respiratory Rate 18 09/19/2024 3:12 PM EST Oxygen Saturation 95% 12/17/2024 10:58 AM EDT Inhaled Oxygen Concentration - - Weight 101 kg (222 lb) 12/17/2024 10:58 AM EDT Height 149.9 cm (4' 11 ) 12/17/2024 10:58 AM EDT Body Mass Index 44.84 12/17/2024 10:58 AM EDT Plan of Treatment Upcoming Encounters Date Type Department Care Team (Late st Contact Info) Description 02/18/2025 11:30 AM EDT Office Visit [facility] [address] [facility] [address] [place] [address] Renny Hansen MD [address] [facility] [address] [place] [address] Health Maintenance Due Date Last Done Comments Medicare Annual Wellness (AWV) 10/17/2025 0 10/17/2024, 09/06/2023, 09/06/2023 Colonoscopy Discontinued 09/12/2017 Colorectal Cancer Screening Discontinued Pneumococcal Vaccine: 65+ Years Completed 08/20/2021, 08/04/2020, 07/05/2017 Influenza Vaccine Completed 09/19/2024, , 08/25/2023, Additional history exists CT Colonography Discontinued FIT-DNA Discontinued FIT Discontinued FOBT Discontinued Sigmoidoscopy Discontinued Procedures Procedure Name Priority Date/Time Associated Diagnosis Comments US AXILLA 01/03/2025 3:32 PM EDT ALL BASIC METABOLIC PANEL Routine 12/21/2024 4:58 PM EDT from Last 3 Months Results * US Axilla (01/03/2025 3:32 PM [...] Dimitrios Blanco M.D.01/03/2025 3:42 PM Dictation Location: [facility] Tech: Ghazaltee Wilson Transcribed By: [facility] 01/03/25 1542 Dictated By: Dimitrios Blanco MD 01/03/25 1532 Signed By: <Electronically signed by Dimitrios Blanco MD in OV> 01/03/25 1542 Narrative 01/03/2025 3:44 PM EDT [facility] Main [place] [id number] Ultrasound Report Signed Patient: Breann Starks MR#: [id number] : 1945 Acct:[id number] Age/Sex: 79 / F ADM Date: 01/03/25 Loc: XT Room: Type: [facility] RCR Attending Dr: Katharina Toledo APRN Ordering Provider: Juan Monahan II, Date of Service: 01/03/25 US/US axilla: R59.0 [...] examination. US/US axilla Procedure Note Radiology, Radiologist, MD - 01/03/2025 [place] [id number] Ultrasound Report Signed Patient: Breann Starks TMR#: [id number] : 1945cct:[id number] Age/Sex: 79 / FADM Date: 01/03/25 Loc: XT Room:Type: REG RCR Attending Dr: Katharina Toledo APRN Ordering [...] Dimitrios Blanco M.D.01/03/2025 3:42 PM Dictation Location: [facility] Tech: Ghazal Wilson Transcribed By: [facility] 01/03/25 1542 Dictated By: Dimitrios Blanco MD 01/03/25 1532 Signed By: <Electronically signed by Dimitrios Blanco MD in OV> 01/03/25 1542 us Juan Monahan DO IMG XR PROCEDURES Final R esult * (ABNORMAL) ALL BASIC METABOLIC PANEL (12/21/2024 4:58 PM EDT) SODIUM 135(L) 136 - 145 mmol/L [facility] POTASSIUM 4.1 3.5 - 5.1 mmol/L [facility] CHLORIDE 100 98 - 107 mmol/L [facility] CARBON DIOXIDE 27.4 21.0 - 32.0 mmol/L [facility] ANION GAP 11.7 [facility] GLUCOSE 114(H) 74 - 106 mg/dL [facility] BLOOD UREA NITROGEN 22.0(H) 7.0 - 18.0 mg/dL [facility] CREATININE 0.98 0.55 - 1.02 mg/dL [facility] EGFR-AF ETHIOPIAN >60 >=60 mL/min/1.7 3m 2 TBH TBH EGFR-NON AF ETHIOPIAN 55(L) >=60 mL/min/1.7 3m 2 [facility] BUN CREATININE RATIO 22.4 [facility] CALCIUM 9.1 8.5 - 10.1 mg/dL [facility] 12/21/2024 4:58 PM EDT 12/21/2024 4:58 PM EDT Narrative [facility] - 12/21/2024 5:23 PM EDT us Generic External Data Provider [facility] F inal Result [facility] TB from Last 3 Months Insurance [employer] MEDIC[employer] Care Teams Senior Health Educator Relationship Specialty Start Date End Date Renny Hansen MD [address] [facility] [address] [place] [address] PCP - General Internal Medicine 09/19/24 Renny Hansen MD [address] [facility] [address] [place] [address] PCP - Medical [place] 09/12/2409/11 Lisa Ramirez LPN 12/05/24
--- OUTSIDE RECORDS SUMMARY | 2025-02-11 10:36 | XMS_ITS | Clinical Summary ---
Author Organization [facility] Address [address] [facility] [place] [address] Phone Care Team Providers Care Lpn Private Duty Name Role Phone Unavailable Primary Care Provider Unavailabl e Social History Tobacco Use Types Packs/Day Years Used Date Smoking Tobacco: Never Assessed Comments Unknown Sex and Gender Information Value Date Recorded Sex Assigned at Not on file Legal Sex Female 4:35 AM EDT Gender Identity Not on file Sexual Orientation Not on file Plan of Treatment Not on file
--- OUTSIDE RECORDS SUMMARY | 2025-02-11 10:36 | XMS_ITS | Encounter Summary ---
Author Organization [facility] Address [address] [facility] [place] [address] Care Team Providers Care Adjunct Sociology Professor Name Role Phone Shaikh BEREKET Denis Primary Care Provider [phone] Jazmín Calvillo SIGNAL MAINTAINER HELPER Unavailable [phone] Renny Hansen MD Primary Care Provider [phone] Renny Hansen MD Unavailable [phone] Cindi Jenkins [employer] Unavailable [phone] Lisa Ramirez LPN Unavailable Unavailable Encounter Details Date Type Department Care Team (Late st Contact Info) Description 02/22/2024 Clinisync Result Encounter [facility] External Department Unsolicited Provider, Generic External Data Social History Tobacco Use Types Packs/Day Years [...] week 08/30/2023 How often do you attend sabianist or synagogue serv ices? Patient declined 08/30/2023 Do you belong to any clubs o r organizations such as sabianist groups, unions, fraternal or athletic groups, or [...] Date Recorded Patient Health Questionnaire-2 Score 0 12/29/2023 [facility] - Occupational Stress [...] place to sleep or slept in a alf (including now)? Patient refused 08/30/2023 Comments Unknown Sex and Gender Information Value Date Recorded Sex Assigned at Not on file Legal Sex Female 6:35 PM EDT Gender Identity Not on file Sexual Orientation Not on file documented as of this encounter Plan of Treatment Upcoming Encounters Date Type Department Care Team (Late st Contact Info) Description 02/18/2025 11:30 AM EDT Office Visit [facility] [address] [facility] [address] [place] [address] Renny Hansen MD 112 [facility] [address] [place] [address] documented as of this encounter Procedures Procedure Name Priority Date/Time Associated Diagnosis Comments XR SHOULDER 2+ VIEWS LEFT 02/22/2024 7:27 AM EDT documented in this encounter Results * XR shoulder 2+ views left (02/22/2024 7:27 AM EDT) Anatomical Region Laterality Modality Upper Extremities, Shoulder Left Radi ographic Imaging 02/22/2024 7:27 AM EDT Narrative 02/22/2024 7:30 AM EDT The [address] [address] XRay Report Signed Patient: MAXIMUS STARKS MR#: [id number] : 1945 Acct:[id number] Age/Sex: 78 / F ADM Date: 02/21/24 Loc: RAD Attending Dr: Mabel De León NP Ordering Physician: Mabel De León NP Date of Service: 02/21/24 Procedure(s): XR shoulder LT min 2V Accession Number(s): [id number] cc: Shaikh Magui Denis; Mabel De León NP The [place] [id number] Patient Name: MAXIMUS STARKS MRN: [id number] date: 1945 Sex: F Assigned Patient Location: RAD Current Patient Location: Accession/Order Number: [id number] Exam Date: 02/21/2024 17:48 Report Date: 02/22/2024 07:27 At the request of: MABEL DE LEÓN Procedure: XR shoulder LT min 2V PROCEDURE: XR shoulder LT min 2V COMPARISON: None. 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 Mild acromioclavicular joint osteoarthritis. No acute fracture, dislocation or mechanical failure. Moderate spondylosis of the spine SOFT TISSUES:Negative. No visible soft tissue swelling. EFFUSION:None visible. 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 Signed By: 02/22/24 0730 DD/ 0727 TD/TT: Cage Supervisor: Procedure Note Radiology, Radiologist, MD - 02/22/2024 [place] [address] XRay Report Signed Patient: MAXIMUS STARKS TMR#: [id number] : 8Acct:[id number] Age/Sex: 78 / FADM Date: 02/21/24 Loc: RAD Attending Dr: Mabel De León NP Ordering Physician: Mabel De León NP Date of Service: 02/21/24 Procedure(s): XR shoulder LT min 2V Accession Number(s): [id number] cc: Shaikh Magui Denis; Mabel De León NP [place] [address] Patient Name: MAXIMUS STARKS MRN: [id number] date: 1945 Sex: F Assigned Patient [facility]: [facility] Current Patient Location: Accession/Order Number: [id number] Exam Date: 02/21/2024 17:48 Report Date: 02/22/2024 07:27 At the request of: MABEL DE LEÓN Procedure: XR shoulder LT min 2V PROCEDURE: XR shoulder LT min 2V COMPARISON: None. 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 Mild acromioclavicular joint osteoarthritis. No acute fracture, dislocation or mechanicalfailure. Moderate spondylosis of the spine SOFT TISSUES:Negative. No visible soft tissue swelling. EFFUSION:None visible. 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 Signed By:02/22/24729 DD/ 6 TD/TT: Cage Supervisor: us Generic External Data Provider IMG XR PROCEDURES Final Result documented in this encounter Visit Diagnoses Not on filedocumented in this encounter Additional Health Concerns Assessment Noted Time PHQ-9 Depression Total Score: 1 09/06/20 23 2:00 PM EST documented as of this encounter Care Teams Adjunct Sociology Professor Relationship Specialty Start Date End Date Shaikh Denis MD [address] [place] [address] PCP - General Internal Medicine 10/17/23 05/16/24 Renny Hansen MD [address] [place] [address] PCP - General Internal Medicine 09/19/24 Renny Hansen MD [address] [facility] [address] [place] [address] PCP - Medical [place] 09/12/2409/11 Jazmín Calvillo NP [address] [facility] [place] [address] Nurse Practitioner Family Medicine 05/17/24 09/18/24 Cindi Jenkins LSW [facility] 11/06/24 12/05/24 Lisa Ramirez LPN 12/05/24 documented as of this encounter
--- OUTSIDE RECORDS SUMMARY | 2025-02-11 10:36 | XMS_ITS | Clinical Summary ---
Author Organization [facility] Address [address] [place] [address] Care Team Providers Care Industrial Staff Nurse Name Role Phone Paulette Johnson MD Primary Care Provider [phone] Scott Cruz MD Unavailable Allergies Active Allergy Reactions Criticality Noted Date Comments Adhesive Swelling 11/18/2023 Medications baclofen 10 mg tablet Take 10 mg by mouth three times a day as needed. Active HYDROcodone-henrique taminophen (NORCO) 5-325 mg per tablet Take 1 tablet by mouth three times a day as needed for pain. Active verapamil ER 180 mg 24 hr capsule take 2 capsules by mouth in the morning Active flecainide (TAMBOCOR) 100 mg tablet Take 100 mg by mouth every 12 hours. 01/11/2023 Active Cholecalciferol , Vitamin D3, 125 mcg (5,000 unit) cap Take 1 tablet by mouth every morning. Active spironolactone (ALDACTONE) 25 mg tablet Take 25 mg by mouth once daily. Active omeprazole (PRILOSEC) 40 mg capsule 02/15/2023 Active gabapentin (NEURONTIN) 300 mg capsule Take 300 mg by mouth two times a day. Active Social History Tobacco Use Types Packs/Day Years Used Date Smoking Tobacco: Never Smokeless Tobacco: Never Alcohol Use Standard Drinks/Week Comments Yes 14 (1 standard drink = 0.6 oz pu re alcohol) Comments Unknown Sex and Gender Information Value Date Recorded Sex Assigned at Not on file Legal Sex Female 8:02 AM EST Gender Identity Not on file Sexual Orientation Not on file Last Filed Vital Signs Vital Sign Reading Time Taken Comments Blood Pressure - - Pulse - - Temperature - - Respiratory Rate - - Oxygen Saturation - - Inhaled Oxygen Concentration - - Weight 99.8 kg (220 lb) 05/22/2024 1:17 PM EDT Height 149.9 cm (4' 11 ) 05/22/2024 1:17 PM EDT Body Mass Index 44.43 05/22/2024 1:17 PM EDT Plan of Treatment Health Maintenance Due Date Last Done Comments Anxiety Screening 11/30/1965 Depression Screening 11/30/1965 Hepatitis C Screening 11/30/1965 DTaP,Tdap,Td Vaccine (1 - Tdap) 11/30/1966 Diabetes Screening 11/30/1992 Shingrix Vaccine (1 of 2) 11/30/1997 Bone Density Screening 11/30/2012 Covid-19 Vaccine (2023-2 5 season) 2024 11/18/2020, 10/20/2020 Advance Directive Discussion 09/12/2024 Influenza Vaccine (Season Ended) 2025 08/25/2023, 07/08/2022, 08/20/2021, Additional history exists Pneumococcal Vaccine: 50+ Completed 2020, 08/04/2020, 07/05/2017 RSV Vaccine Completed 08/25/2023 Insurance [employer] MEDICARE Care Teams Industrial Staff Nurse Relationship Specialty Start Date End Date Paulette Johnson MD [address] [place], [place] [id number] PCP - General 01/05/06 Scott Cruz MD [address] [address] Referring Infectious Diseases 05/07/24
--- OUTSIDE RECORDS SUMMARY | 2025-02-11 10:36 | XMS_ITS | Encounter Summary ---
Author Organization [facility] Healthcare Address [address] [place] [address] Care Team Providers Care Bench Worker Apprentice Name Role Phone Renny Hansen MD Primary Care Provider Renny Hansen MD Unavailable [phone] Lisa Ramirez LPN Unavailable Unavailable Encounter Details Date Type Department Care Team (Late st Contact Info) Description 01/28/2025 Patient Outreach [facility] POPULATION [facility] [address] [place] [id number] Cindi Jenkins LSW Social History Tobacco Use Types Packs/Day Years [...] 11/12/2024 How often do you attend chur ch or taoism services? Patient declined 11/12/2024 Do you belong to any clubs o r organizations such as religion groups, unions, fraternal [...] Recorded Patient Health Questionnaire-2 Score 0 10/17/2024 [facility] - [...] place to sleep or slept in a group home (including now)? Patient refused 08/30/2023 Housing Stability [...] any time in the past [facility], were you homeless or living in a group home (including now)? No 11/12/2024 Comments Unknown Sex and Gender Information Value Date Recorded Sex Assigned at Not on file Legal Sex Female 6:35 PM EDT Gender Identity Not on file Sexual Orientation Not on file documented as of this encounter Progress Notes * [facility] - 01/28/2025 3:27 PM EDT Images from the original note were not included. Flowsheet Row Patient Outreach from 01/28/2025 in [facility] with [facility] Information ED, Hospital or Residential Facility Discharge? ED Patient has been contacted within 2 days of being seen in the ED Yes Diagnosis chronic pain Discharge Date 01/27/25 Discharged To: Home Setting Discharge Hospital [facility] Engagement Call Start Time 1540 Admission Date 01/27/25 Medications Discharge medications reviewed and reconciled from hospital? Not applicable Does the patient have all medications ordered at discharge? Not applicable Nursing Interventions No intervention needed Prescription Comments no med changes Is the patient taking all medications as directed (includes completed medication regime)? Not applicable Medication Comments Treated with steroid injection and 1 hydrocodone pill in ED Appointments Does the patient have a primary care provider? Yes [Renny Hansen MD, next appt 02/18/25] Nursing Interventions Patient declined follow up appointment w/ PCP Does the patient have any upcoming specialty appointments? Yes [[facility] 01/29/25] Nursing Interventions Advised patient to keep appointment Self Management Patient Teaching Does the patient have access to their discharge instructions? Yes Nursing Interventions Reviewed instructions with patient What is the patient's perception of their health status since discharge? Same [steroid injection only provided relief for a few hours] Is the patient/caregiver able to teach back the hierarchy of who to call/visit for symptoms/problems? PCP, Specialist, Home Health nurse, Urgent Care, ED, 911 Yes Wrap Up Wrap Up Additional Comments Presented to ED for chronic back pain. Pt is due for pain injeciton andhoped to get it sooner by presenting to ED. Pt treated with steroid injection and given 1 pill hydrocodone and discharged home, was advised to follow up with Pain Mgmt. Pt declines follow up with PCP. She will consult [facility] tomorrow 01/29 and expects she'll be able to schedule pain injection for the following Tuesday. Call End Time 1550 Spoke to pt, ED TCM complete. She will try to be more diligent about keeping track of when she is due for pain injection going forward. documented in this encounter Plan of Treatment Upcoming Encounters Date Type Department Care Team (Late st Contact Info) Description 02/18/2025 11:30 AM EDT Office Visit [facility] [address] [facility] [address] [place] [address] Renny Hansen MD 112 [facility] [address] [place] [address] documented as of this encounter Visit Diagnoses Diagnosis Acute on chronic diastolic (congestive) heart failure- Primary Vitamin D deficiency, unspecified documented in this encounter Additional Health Concerns Assessment Noted Time PHQ-9 Depression Total Score: 1 09/06/20 23 2:00 PM EST documented as of this encounter Care Teams Bench Worker Apprentice Relationship Specialty Start Date End Date Renny Hansen MD 112 [facility] [address] [place] [address] PCP - General Internal Medicine 09/19/24 Renny Hansen MD 112 [facility] [address] [place] [address] PCP - Medical [place] 09/12/2409/11 Lisa Ramirez LPN 12/05/24 documented as of this encounter
--- OUTSIDE RECORDS SUMMARY | 2025-02-11 10:37 | XMS_ITS ---
Author Organization [facility] Address [address] [facility] [place] [address] Care Team Providers Care Drum Operator Name Role Phone Renny Hansen MD Primary Care Provider [phone] Renny Hansen MD Unavailable [phone] Lisa Ramirez LPN Unavailable Unavailable Emergency Department Transitional Care Management (TCM) Status:Closed (Closed) Start date:01/27/2025 Enrollment date:01/28/2025 Enrollment reason:Identified using hospital discharge data End date:01/28/2025 Close reason:Actively enrolled in CCM Overview Discharged from [facility] on 01/27. Please contact within 2 days of discharge for ERTOC and schedule a follow-up appointment if needed. Continued Care and Services Coordination
--- OUTSIDE RECORDS SUMMARY | 2025-02-11 10:37 | XMS_ITS | Clinical Summary ---
Author Organization [facility] Address [address] [place] [address] Care Team Providers Care Marble Cutter Operator Name Role Phone Renny Hansen MD Primary Care Provider [phone] Balta Cardenas MD Unavailable [phone] Allergies No known active allergies Medications Medication Sig Dispensed Refills Start Date End Date Status cholecalciferol (Vitamin D-3) 125 MCG (5000 UT) capsule Take 1 tablet by mouth in the morning. Active spironolactone (Aldactone) 25 mg tabletIndications: Edema, unspecified TAKE 1 TABLET BY MOUTH EVERY DAY 90 tablet 3 01/21/2023 Active Eliquis 5 mg tablet Take 5 mg by mouth every 12 (twelve) hours. 05/05/2023 Active furosemide (Lasix) 40 mg tabletIndications: Benign hypertensive heart disease with heart failure (CMS/HCC) Take 1 tablet (40 mg) by mouth in the morning and at bedtime. 180 tablet 3 03/06/2024 Active baclofen (Lioresal) 10 mg tablet Take 1 tablet by mouth every 6 (six) hours during the day. 03/23/2024 Active omeprazole (PriLOSEC) [address] capsule Take 1 capsule by mouth in the morning. 07/09/2024 Active flecainide (Tambocor) 100 mg tabletIndications: Paroxysmal atrial fibrillation (CMS/HCC) Take 1 tablet (100 mg) by mouth Twice daily at 6am and 6pm. 180 tablet 3 12/28/2024 Active spironolactone (Aldactone) 50 mg tabletIndications: Chronic diastolic heart failure (CMS/HCC) Take 1 tablet (50 mg) by mouth in the morning. 90 tablet 3 12/28/2024 6 Active penicillin v potassium (Veetid) 500 mg tabletIndications: Pain in joint of left shoulder Take 1 tablet (500 mg) by mouth four times daily. 240 tablet 1 01/17/2025 5 Active penicillin v potassium (Veetid) 500 mg tabletIndications: Pain in joint of left shoulder Take 1 tablet (500 mg) by mouth four times daily. 40 tablet 4 01/17/2025 5 Active verapamil ER (Veralan) 180 mg 24 hr capsuleIndications :Essential hypertension Take 2 capsules (360 mg) by mouth once daily as directed. Do not crush or chew. 180 capsule 3 02/08/2025 Active verapamil ER (Veralan) 180 mg 24 hr capsuleIndications :Essential hypertension TAKE 2 CAPSULES BY MOUTH IN THE MORNING. 180 capsule 3 02/01/2024 5 Discontinue d(Reorder) penicillin v potassium (Veetid) 500 mg tabletIndications: Pain in joint of left shoulder Take 1 tablet (500 mg) by mouth four times daily. 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 07/05/2024 Axillary lymphadenopathy 07/05/2024 Degenerative disc disease, cervical 07/05/2024 Irritable bowel syndrome 07/05/2024 Sigmoid diverticulosis 07/05/2024 Iron deficiency anemia due to chronic blood loss 03/12/2024 Cardiac pacemaker in situ 01/19/2024 Diastolic dysfunction 01/19/2024 Arthritis of right acromioclavicular joint 11/0701/17/2024 Closed fracture of fifth metatarsal bone 024 01/17/2024 Contusion of left shoulder 11/07/202301/16 Impingement syndrome of right shoulder 01/17/2024 Shoulder pain 10/17/2023 Acute pain of left knee 09/06/2023 01/17/20 Arthritis of left shoulder region 09/06/2023 01/17/2024 Chronic bilateral low back pain with sciatica 01/17/2024 Overview (01/17/2024): Last Assessment & Plan: Chronic LBP with bilateral radiculopathy. MRI shows multilevel degenerative changes, worse at L4-5. Could not tolerate gabapentin and lyrica Patient had spidural spinal injection and that seems to be helping her pain. Pain is reasonably controlled. Monitor. Medicare annual wellness visit, subsequent 09/0601/17/2024 Overview (01/17/2024): Last Assessment & Plan: Patient here for medicare wellness. Doing well overall other than chronic back pain. Upto date on Colon Cancer screening, breast cancer screening. Reviewed medications, counseled on lifestyle measures, importance of compliance. Vitamin D deficiency 03/01/2023 Venous insufficiency 03/01/2023 Steatosis of liver 03/01/2023 Overview (03/01/2023): non alcoholic Spinal stenosis 03/01/2023 Gastric ulcer 03/01/2023 Osteoarthritis of lumbar spine 03/01/2023 Osteoarthritis of both knees 03/01/2023 Hypocalcemia 03/01/2023 Herpes zoster 03/01/2023 Overview (03/01/2023): 05/2019 Cervical radiculopathy 03/01/2023 Paroxysmal A-fib 11/18/2022 Assessment & Plan (11/18/2022 10:55 AM EST): -device check in may 2022 <1% AF, had 1 mode switch which lasted 6 seconds -will have her get device check to assess AF burden -[id number] 3 -Continue Xarelto 20 mg daily, continue propafenone to 25 mg 3 times a day Sinus node dysfunction 10/07/2020 Assessment & Plan (11/18/2022 10:55 AM EST): - S/p PPM [employer] -We will have her scheduled for device check Obesity 12/29/2012 Assessment & Plan (11/18/2022 10:56 AM EST): Obesity is slightly improving -She was to 255 pounds last visit and today she is 241 pounds -Advised to continue working on weight loss and lifestyle changes Premature beats 02/04/2012 Essential hypertension 01/13/2012 Assessment & Plan (11/18/2022 10:54 AM EST): Hypertension is stable -ct medications: aldactone, verapamil, lasix 20mg -managed per PCP Malaise and fatigue 01/13/2012 Disorder of bursae of shoulder region 01/12/2012 Chronic obstructive lung disease 01/12/2012 Atherosclerosis of augustine co ronary artery of augustine heart without angina pectoris 01/12/2012 Assessment & Plan (11/18/2022 10:53 AM EST): Coronary artery disease is stable -no CP or LEA -last cath 2010, mild disease no PCI / stent -continue medications Diaphragmatic hernia 01/12/2012 Edema 01/12/2012 Paroxysmal supraventricular tachycardia 01/12/20 12 Resolved Problems Problem Noted Date Diagnosed Date Resolved Date Acute on chronic diastolic ( congestive) heart failure 02/27/2024 12/24/2024 Encounters Date Type Department Care Team Description 02/08/[address] [phone] Anne-MarieTina MA Essential hypertension 01/22/2025 3:00 PM EDT Ancillary Procedure [facility] [address] [place] [address] Encounter for implantable defibrillator reprogramming or check 01/18/2025 Telephone [facility] Infectious Disease [address] [place] [phone] Ortega Hines MD 01/17/2025 10:00 AM EDT Office Visit [facility] Infectious Disease [address] [place] [address] Ortega Hines MD 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); Pain in joint of left shoulder 01/17/2025 Orders Only [facility] Dermatology [address] [place] [address] Purnima Quintero MA Pain in joint of left shoulder 01/07/2025 Telephone [facility] Infectious Disease [address] [place] [address] Rosemarie Mistry MA 01/04/2025 Telephone [facility] [address] [place] [facility] [place] [address] Lisa Gonzalez MA 01/01/2025 1:40 PM EDT Follow-Up [facility] [address] [place] [address] [place] [address] Jan Albert MD 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, unspecified complication, subsequent encounter (Primary Dx); Pain in joint of left shoulder 12/28/2024 Telephone [facility] [address] [place] [facility] [place] [address] Roopa Mensah MA 12/28/2024 Refill [facility] [address] [place] [facility] [place] [address] Roopa eMnsah MA Chronic diastolic heart failure (CMS/HCC) 12/28/2024 Refill [facility] [address] [place] [facility] [place] [address] Roopa Mensah MA Paroxysmal atrial fibrillation (CMS/HCC) 12/24/2024 1:40 PM EDT Office Visit [facility] [address] [place] [facility] [place] [address] Kellie Alva MD Paroxysmal A-fib (CMS/HCC) (Primary Dx); Sinus node dysfunction (CMS/HCC); Cardiac pacemaker in situ; Atherosclerosis of augustine coronary artery of augustine heart without angina pectoris; Pulmonary hypertension ([facility]/HCC); Venous insufficiency; Chronic diastolic congestive heart failure ([facility]); Pure hypercholesterolemia 12/04/2024 Refill [facility] Cardiology [address] [facility] [place] [address] Ingrid Cannon CNP Paroxysmal atrial fibrillation ([facility]/HCC) 11/27/2024 1:30 PM EDT Lab [facility] Draw Station [address] [place] [address] [place] [phone] Pain in joint of left shoulder 11/27/2024 1:00 PM EDT Follow-Up [address] [place] [phone] Jan Albert MD Pain in joint of left shoulder (Primary Dx) 11/19/2024 Orders Only [address] [place] [address] James Gracia MA Pain in joint of left shoulder 11/16/2024 Orders Only [address] [place] [phone] Madison Maria MD Infection (Primary Dx) 11/15/[address] [place] [address] Ritu Harmon MA Aspiration 11/13/2024 1:35 PM EST - 11/13/2024 11:59 PM EST Hospital Encounter [facility] X-Ray Imaging [address] [place] [address] [place] [address] Discharge Disposition: Home or Self Care () 11/13/2024 1:10 PM EST Office Visit [address] [place] [address] Jan Albert MD Pain in joint of left shoulder (Primary Dx) 11/13/2024 Orders Only [address] [place] [address] Niels Venegas MD Chronic left shoulder pain (Primary Dx) from Last 3 Months Immunizations Name Administration Dates Next Due Influenza, High Dose Seasona l, Preservative Free 08/06/2019 Influenza, Seasonal, Quadriv alent, Adjuvanted 07/08/2022,08/20/2021,08/04/2020 Influenza, Unspecified 07/05/2017,2015,06/25/2015,07/12,08/07/2013 Influenza, seasonal,quadriva lent, preservative free 06/12/2015 Moderna SARS-CoV-2 Vaccination 11/18/2020,2020 Pneumococcal Conjugate PCV 13 08/04/2020, 017 Pneumococcal Polysaccharide PPV23 08/20/2021 Family History * Patient is adopted Relation Name Status Comments Father Mother Social History Tobacco Use Types Packs/Day Years Used Date Smoking Tobacco: Former Cigarettes 1 957 - 1999 Smokeless Tobacco: Never Alcohol Use Standard Drinks/Week Comments Yes 0 (1 standard drink = 0.6 oz pur e alcohol) OCCASIONAL Humiliation, Afraid, Rape, and Kick questionnair e Answer Date Recorded Within the last year, have y ou been afraid of your partner or ex-partner? No 11/27/2024 Emotionally Abused Not on file 11/27/2024 Physically Abused Not on file 11/27/2024 Sexually Abused Not on file 11/27/2024 PHQ-2 Answer Date Recorded Patient Health Questionnaire-2 Score 0 01/17/2025 Sex and Gender Information Value Date Recorded Sex Assigned at Not on file Gender Identity Not on file Sexual Orientation Not on file Last Filed Vital Signs Vital Sign Reading Time Taken Comments Blood Pressure 138/80 01/17/2025 9:52 AM EDT Pulse 60 01/17/2025 9:52 AM EDT Temperature 36.9 C (98.4 F) 01/17/2025 9:52 AM EDT Respiratory Rate - - Oxygen Saturation 97% 12/24/2024 1:32 PM EDT Inhaled Oxygen Concentration - - Weight 97.5 kg (215 lb) 01/17/2025 9:52 AM EDT Height 149.9 cm (4' 11 ) 01/17/2025 9:52 AM EDT Body Mass Index 43.42 01/17/2025 9:52 AM EDT Plan of Treatment Upcoming Encounters Date Type Department Care Team (Late st Contact Info) Description 02/20/2025 11:00 AM EDT Follow-Up [facility] Infectious Disease [address] [place] [phone] Ortega Hines MD [address] [facility]/[place] [address] Health Maintenance Due Date Last Done Comments Medicare Annual Wellness (AWV) 1945 Adult Tetanus 11/30/1969 Zoster Vaccines (1 of 2) 11/30/1997 COVID-19 Vaccine ( season) 2024 11/18/2020, 11/18/2020, 10/20/2020, Additional history exists Depression Screening 01/17/2026 01/17/2025 Fall Risk Screening 01/17/2026 01/17/2025 Pneumococcal Vaccine: 65+ Years Completed 08/20/2021, 08/04/2020, 07/05/2017 Influenza Vaccine Completed 09/19/2024, , 07/08/2022, Additional history exists Mammogram Discontinued 10/16/2024 HIB Vaccines Aged Out No longer eligi ble based on patient's age to complete this topic HPV Vaccines Aged Out No longer eligi ble based on patient's age to complete this topic IPV Vaccines Aged Out No longer eligi ble based on patient's age to complete this topic Meningococcal B Vaccine Aged Out No l onger eligible based on patient's age to complete this topic Meningococcal Vaccine Aged Out No cruz page eligible based on patient's age to complete this topic Rotavirus Vaccines Aged Out No longer eligible based on patient's age to complete this topic Procedures Procedure Name Priority Date/Time Associated Diagnosis Comments CARDIAC DEVICE CHECK - IN CLINIC - PACEMAKER DUAL CHAMBER W/ PROG Routine 01/23/2025 1:08 PM EDT Encounter for implantable defibrillator reprogramming or check CBC WITH AUTO DIFFERENTIAL Routine 01/17/2025 11:19 AM EDT Pain in joint of left shoulder C-REACTIVE PROTEIN Routine 01/17/2025 11 :19 AM EDT Pain in joint of left shoulder CBC AND DIFFERENTIAL Routine 01/17/2025 11:19 AM EDT Pain in joint of left shoulder BASIC METABOLIC PANEL Routine 01/17/2025 11:19 AM EDT Pain in joint of left shoulder CBC WITH AUTO DIFFERENTIAL Routine 11/27/2024 1:27 PM EDT Pain in joint of left shoulder SEDIMENTATION RATE Routine 11/27/2024 1: 27 PM EDT Pain in joint of left shoulder C-REACTIVE PROTEIN Routine 11/27/2024 1: 27 PM EDT Pain in joint of left shoulder CBC AND DIFFERENTIAL Routine 11/27/2024 1:27 PM EDT Pain in joint of left shoulder [place] ARTHROCENTESIS ASPIR&/INJ MAJOR JT/BURSA W/O US Routine 11/13/2024 7:17 PM EST Pain in joint of left shoulder ANAEROBIC CULTURE Routine 11/13/2024 2:3 5 PM EST Pain in joint of left shoulder BODY FLUID CULTURE Routine 11/13/2024 2: 35 PM EST Pain in joint of left shoulder BODY FLUID CULTURE AND ANAEROBIC CULTURE Routine 11/13/2024 2:35 PM EST Pain in joint of left shoulder XR SHOULDER 2+ VIEWS LEFT Routine 11/13/2024 1:41 PM EST Pain in joint of left shoulder from Last 3 Months Results * CARDIAC DEVICE CHECK - IN CLINIC - PACEMAKER DUAL CHAMBER W/ PROG (01/23/2025 1:08 PM EDT) Anatomical Region Laterality Modality Other Narrative 02/06/2025 12:54 AM EDT By using the attestations below, the signing clinician agrees that I have read and verify that the documentation has been personally reviewed by me and ensure that the documentation accurately reflects the encounter. Routine EP device follow up as per schedule. Please see attached note Dmitriy Mahan MD CV IMPLANTABLE CARDI AC DEVICE PROCEDURES * (ABNORMAL) CBC auto differential (01/17/2025 11:19 AM EDT) Only the most recent of2 resultswithin the time period is included. Auto WBC 7.39 4.00 - 10.60 10*3/uL 01/17/2025 5:59 PM EDT [facility] ([facility]) RBC 3.91 3.80 - 5.00 10*6/uL 01/17/2025 5:59 PM EDT [facility] ([facility]) Hemoglobin 9.8(L) 12.0 - 15.0 g/dL 01/17/2025 5:59 PM T [facility] ([facility]) Hematocrit 33.1(L) 36.0 - 45.0 % 01/17/2025 5:59 PM EDT [facility] ([facility]) MCV 84.7 82.0 - 98.0 fL 01/17/2025 5:59 PM EDT [facility] ([facility]) MCH 25.1(L) 27.0 - 33.0 pg 01/17/2025 5:59 PM T [facility] ([facility]) MCHC 29.6(L) 32.0 - 35.0 g/dL 01/17/2025 5:59 PM T [facility] ([facility]) RDW 18.4(H) 11.5 - 15.0 % 01/17/2025 5:59 PM EDT [facility] ([facility]) Neutrophils % 71.9 40.0 - 72.0 % 01/17/2025 5:59 PM EDT [facility] ([facility]) Lymphocytes % 17.9(L) 20.0 - 45.0 % 01/17/2025 5:59 PM EDT [facility] ([facility]) Monocytes % 6.8 5.0 - 12.0 % 01/17/2025 5:59 PM EDT [facility] ([facility]) Eosinophils % 2.2 0.0 - 6.0 % 01/17/2025 5:59 PM EDT [facility] ([facility]) Basophils % 0.9 0.0 - 1.0 % 01/17/2025 5:59 PM EDT [facility] ([facility]) Neutrophils Absolute 5.32 1.60 - 7.60 10*3/uL 01/17/2025 5:59 PM EDT [facility] ([facility]) Lymphocytes Absolute 1.32 1.20 - 4.00 10*3/uL 01/17/2025 5:59 PM EDT [facility] ([facility]) Monocytes Absolute 0.50 0.10 - 1.00 10*3/uL 01/17/2025 5:59 PM EDT [facility] ([facility]) Eosinophils Absolute 0.16 0.00 - 0.50 10*3/uL 01/17/2025 5:59 PM EDT [facility] ([facility]) Basophils Absolute 0.07 0.00 - 0.20 10*3/uL 01/17/2025 5:59 PM EDT [facility] ([facility]) Platelets 338 150 - 400 10*3/uL 01/17/2025 5:59 PM EDT [facility] ([facility]) nRBC % 0.0 0 % 01/17/2025 5:59 PM EDT [facility] ([facility]) Immature Granulocytes % 0.3 0.0 - 1.0 % 01/17/2025 5:59 PM EDT [facility] ([facility]) Immature Granulocytes Absolute 0.02 0.00 - 0.20 10*3/uL 01/17/2025 5:59 PM EDT [facility] ([facility]) Blood Venous blood specimen / Unknown Venipuncture / Unknown 01/17/2025 11:19 AM EDT 01/17/2025 11:19 AM EDT Ortega Hines MD LAB BLOOD ORDERABLES [facility]) [address] [place] [address] * (ABNORMAL) C-reactive protein (01/17/2025 11:19 AM EDT) Only the most recent of2 resultswithin the time period is included. Pathologist [facility] CRP 6.8(H) <=5.0 mg/L 01/18/2025 3:12 PM EDT [facility] ([facility]) Comment:Testing performed us ing a new methodology, turbidimetry. Normal ranges have been updated. Old normal range was <8 mg/L. Blood Venous blood specimen / Unknown Venipuncture / Unknown 01/17/2025 11:19 AM EDT 01/17/2025 11:19 AM EDT Ortega Hines MD LAB BLOOD ORDERABLES [facility] ([facility]) [address] [place] [address] * (ABNORMAL) Basic metabolic panel (01/17/2025 11:19 AM EDT) Pathologist [facility] Sodium 135(L) 136 - 145 mmol/L 01/17/2025 5:04 PM EDT [facility] ([facility]) Potassium 4.1 3.5 - 5.1 mmol/L 01/17/2025 5:04 PM EDT [facility] ([facility]) Chloride 103 98 - 107 mmol/L 01/17/2025 5:04 PM EDT [facility] ([facility]) CO2 26 21 - 31 mmol/L 01/17/2025 5:04 PM EDT [facility] ([facility]) BUN 17 7 - 25 mg/dL 01/17/2025 5:04 PM EDT [facility] ([facility]) Creatinine 0.64 0.60 - 1.20 mg/dL 01/17/2025 5:04 PM EDT [facility] ([facility]) Glucose 92 70 - 100 mg/dL 01/17/2025 5:04 PM EDT [facility] ([facility]) Calcium 8.9 8.6 - 10.3 mg/dL 01/17/2025 5:04 PM EDT [facility] ([facility]) Anion Gap 10 7 - 20 mmol/L 01/17/2025 5:04 PM EDT [facility] ([facility]) eGFR 91.0 >60.0 mL/min/1. 73m*2 01/17/2025 5:04 PM EDT [facility] ([facility]) Comment:The [facility] s estimated glomerular filtration rate (eGFR) will no longer include consideration of race in its calculation. The [employer] s eGFR Task Force developed new recommendations for [...] disproportionately affect any one group of individuals. BUN/Creatinine Ratio 26.6 04/2025 5:04 PM EDT [facility] ([facility]) Blood Venous blood specimen / Unknown Venipuncture / Unknown 01/17/2025 11:19 AM EDT 01/17/2025 11:19 AM EDT Ortega Hines MD LAB BLOOD ORDERABLES [facility]) [address] [place] [address] * (ABNORMAL) Sedimentation rate (11/27/2024 1:27 PM EDT) Sed Rate 96(H) <30 mm/hr 11/27/2024 3:4 0 PM EDT [facility]) Blood Venous blood specimen / Unknown Venipuncture / Unknown 11/27/2024 1:27 PM EDT 11/27/2024 3:16 PM EDT Jan Albert MD LAB BLOOD ORDERABLES [facility]) [address] [place] [address] * [place] ARTHROCENTESIS ASPIR&/INJ MAJOR JT/BURSA W/O US (11/13/2024 7:17 PM EST) Narrative Jan Albert MD - 11/13/2024 7:17 PM EST Jan Albert MD 11/13/2024 7:19 PM Large Joint on 11/13/2024 7:17 PM Indications: [...] to verify the correct patient, procedure, equipment, other sales support worker and site/side marked as required. Jan Albert MD IN CLINIC/BEDSIDE OR DERABLES * (ABNORMAL) Body fluid culture (11/13/2024 2:35 PM EST) Culture Isolated from Broth Culture Streptococcus sanguinis(A) VIOLET 11/16/2024 9:54 AM EST [facility] ([facility]) Comment:Presumptive Identifi cation Gram Stain Result Many Polymorphonuclear leukocytes 11/16/2024 9:54 AM EST [facility] Gram Stain Result No organisms seen 11/16/2024 9:54 AM EST [facility] ([facility]) Synovial Fluid (Shoulder) Non-blood Collection / Unknown 11/13/2024 2:35 PM EST 11/13/2024 2:36 PM EST Jan Albert MD LAB MICROBIOLOGY - G ENERAL ORDERABLES [facility] ([facility]) [address] [place] [address] * Anaerobic culture (11/13/2024 2:35 PM EST) Anaerobic Culture No anaerobes isolated at day 5 VIOLET 11/19/2024 10:53 AM EDT [facility] ([facility]) Synovial Fluid (Shoulder) Non-blood Collection / Unknown 11/13/2024 2:35 PM EST 11/13/2024 2:36 PM EST Jan Albert MD LAB MICROBIOLOGY - G ENERAL ORDERABLES [facility] ([place]) [address] [place] [address] * XR shoulder 2+ views left (11/13/2024 1:41 PM EST) Anatomical Region Laterality Modality Upper Extremities, Shoulder Left Comp uted Radiography 11/13/2024 3:09 PM EST Impressions 11/13/2024 3:57 PM EST * No radiographic evidence of acute osseous abnormality. Approved by:Shannan Grajeda11/13/2024 3:14 PM. ISkinny MD,have reviewed the image(s) and agree with the findings in this report. Electronically signed: Skinny Lagos MD. Narrative 11/13/2024 3:57 PM EST XR SHOULDER 2+ VIEWS LEFT HISTORY: Left shoulder pain COMPARISON: Chest radiograph 10/13/2020 TECHNIQUE: 3 views of the left shoulder obtained. FINDINGS: Reverse total shoulder arthroplasty without evidence of hardware complication. Osteopenia. Degenerative changes of the acromioclavicular joint. No acute fracture, dislocation, or malalignment. The visualized ribs and adjacent lung are unremarkable. Stable left-sided cardiac pacing device. Procedure Note Skinny Lagos MD - 11/13/2024 XR SHOULDER 2+ VIEWS LEFT HISTORY: Left shoulder pain COMPARISON: Chest radiograph 10/13/2020 TECHNIQUE: 3 views of the left shoulder obtained. FINDINGS: Reverse total shoulder arthroplasty without evidence of hardwarecomplication. Osteopenia. Degenerative changes of the acromioclavicular joint. No acute fracture, dislocation, or malalignment. The visualized ribs and adjacent lung are unremarkable. Stableleft-sided cardiac pacing device. IMPRESSION: *No radiographic evidence of acute osseous abnormality. Approved by:Shannan Grajeda11/13/2024 3:14 PM. I, Skinny Lagos MD,have reviewed the image(s) and agree with the findings inthis report. Electronically signed: Skinny Lagos MD. Jan Albert MD IMG XR PROCEDURES from Last 3 Months Care Teams Marble Cutter Operator Relationship Specialty Start Date End Date Renny Hansen MD 112 [facility] [address] [place] [address] PCP - General Internal Medicine 07/18/24 Balta Cardenas MD [address] [place] [address] Referring Physician 11/15/24
--- OUTSIDE RECORDS SUMMARY | 2025-02-11 10:37 | XMS_ITS | Encounter Summary ---
Author Organization [facility] Address [address] [facility] [place] [address] Care Team Providers Care Ring Sorter Name Role Phone Shaikh BEREKET Denis Primary Care Provider [phone] Jazmín Calvillo LABORER Unavailable [phone] Renny Hansen MD Primary Care Provider [phone] Renny Hansen MD Unavailable [phone] Cindi Jenkins OPERATOR SPECIALIST COMMUNICATIONS Unavailable [phone] Lisa Ramirez LPN Unavailable Unavailable Encounter Details Date Type Department Care Team (Late st Contact Info) Description 12/12/2023 Clinisync Result Encounter [facility] External Department Unsolicited Provider, Generic External Data Social History Tobacco Use Types Packs/Day Years Used Date Smoking Tobacco: Former Cigarettes Alcohol Use Standard Drinks/Week Comments Yes 0 [...] week 08/30/2023 How often do you attend buddhism or lutheran serv ices? Patient declined 08/30/2023 Do you belong to any clubs o r organizations such as buddhism groups, unions, fraternal or athletic groups, or [...] Date Recorded Patient Health Questionnaire-2 Score 0 11/07/2023 [facility] - Occupational Stress Questionnaire Answer [...] 02/18/2025 11:30 AM EDT Office Visit [facility] 112 [facility] 110 [place] [address] Renny Hansen MD 112 [facility] 110 [place] [address] documented as of this encounter Procedures Procedure Name Priority Date/Time Associated Diagnosis Comments XR DEXA AXIAL SKELETON 12/12/2023 1:46 PM EDT documented in this encounter Results * XR DEXA AXIAL SKELETON (12/12/2023 1:46 PM EDT) Anatomical Region Laterality Modality Other 12/12/2023 1:46 PM EDT Narrative 12/12/2023 1:48 PM EDT The [address] [address] XRay Report Signed Patient: MAXIMUS STARKS MR#: [id number] : 1945 Acct:[id number] Age/Sex: 78 / F ADM Date: 12/12/23 Loc: RAD Attending Dr: Renée Barry NP Ordering Physician: Renée Barry NP Date of Service: 12/12/23 Procedure(s): XR DEXA axial skeleton Accession Number(s): [id number] cc: Shaikh Magui Denis; Renée Barry NP The [place] [address] Patient Name: MAXIMUS STARKS MRN: [id number] date: 1945 Sex: F Assigned Patient Location: RAD Current Patient Location: RAD Accession/Order Number: [id number] Exam Date: 12/12/2023 12:57 Report Date: 12/12/2023 13:46 At the request of: RENÉE BARRY Procedure: XR DEXA axial skeleton EXAMINATION: XR DEXA axial skeleton HISTORY: Asymptomatic menopausal state Z78.0 COMPARISON: No relevant comparison available. TECHNIQUE: Dual-energy X-ray absorptiometry (DXA) was performed. FINDINGS: SPINE ANALYSIS: Average bone mineral density is 1.216 g/cm2. T-score (standard deviation relative to young adult mean): 0.3 . HIP ANALYSIS: Lowest bone mineral density is within the right femoral neck, 0.912 g/cm2. T-score (standard deviation relative to young adult mean): -0.9 . XR/XR DEXA axial skeleton IMPRESSION: World Cory Organization Classification: Normal - Low Fracture Risk Electronically authenticated by: WIL DELGADO Date: 12/12/2023 13:46 Dictated By: Wil Delgado M.D. Signed By: 12/12/23 1348 DD/ 1346 TD/TT: Rn Immunology: Procedure Note Radiology, Radiologist, MD - 12/15/2023 [place] [address] XRay Report Signed Patient: MAXIMUS STARKS TMR#: [id number] : 8Acct:[id number] Age/Sex: 78 / FADM Date: 12/12/23 Loc: RAD Attending Dr: Renée Barry LABORER Ordering Physician: Renée Barry NP Date of Service: 12/12/23 Procedure(s): XR DEXA axial skeleton Accession Number(s): [id number] cc: Shaikh Magui Denis; Renée Barry NP [address] [address] Patient Name: MAXIMUS STARKS MRN: [id number] date: 1945 Sex: F Assigned Patient Location: RAD Current Patient Location: RAD Accession/Order Number: [id number] Exam Date: 12/12/2023 12:57 Report Date: 12/12/2023 13:46 At the request of: RENÉE BARRY Procedure: XR DEXA axial skeleton EXAMINATION: XR DEXA axial skeleton HISTORY: Asymptomatic menopausal state Z78.0 COMPARISON: No relevant comparison available. TECHNIQUE: Dual-energy X-ray absorptiometry (DXA) was performed. FINDINGS: SPINE ANALYSIS: Average bone mineral density is 1.216 g/cm2. T-score (standard deviation relative to young adult mean): 0.3 . HIP ANALYSIS: Lowest bone mineral density is within the right femoral neck, 0.912 g/cm2. T-score (standard deviation relative to young adult mean): -0.9 . XR/XR DEXA axial skeleton IMPRESSION: World Cory Organization Classification: Normal - Low Fracture Risk Electronically authenticated by: WIL DELGADO Date: 12/12/2023 13:46 Dictated By: Wil Delgado M.D. Signed By:12/12/23 1348 DD/ 1346 TD/TT: Rn Immunology: us Generic External Data Provider [facility] Final Result documented in this encounter Visit Diagnoses Not on filedocumented in this encounter Additional Health Concerns Assessment Noted Time PHQ-9 Depression Total Score: 1 09/06/20 23 2:00 PM EST documented as of this encounter Care Teams Ring Sorter Relationship Specialty Start Date End Date Shaikh Denis MD [address] [place] [address] PCP - General Internal Medicine 10/17/23 05/16/24 Renny Hansen MD [address] [facility] 110 [place] [address] PCP - General Internal Medicine 09/19/24 Renny Hansen MD [address] [facility] 110 [place] [address] PCP - Medical [facility] 09/12/2409/11 Jazmín Calvillo NP [address] [facility] [place] [address] Nurse Practitioner Family Medicine 05/17/24 09/18/24 Cindi Jenkins LSW Engineering Vice President Family Medicine 11/06/24 12/05/24 Lisa Ramirez LPN 12/05/24 documented as of this encounter
--- OUTSIDE RECORDS SUMMARY | 2025-02-11 10:37 | XMS_ITS | Referral Summary ---
Author Organization [facility] Address [address] [place] [address] Care Team Providers Care Steel Cutter Name Role Phone Renny Hansen MD Primary Care Provider [phone] Balta Cardenas MD Unavailable [phone] Encounters Date Type Department Care Team Description 02/08/2025 Refill [place] [address] [place] [address] Tina Xie MA Essential hypertension 01/22/2025 3:00 PM EDT Ancillary Procedure [place] [address] [place] [address] Encounter for implantable defibrillator reprogramming or check 01/18/[address] [facility] Infectious Disease [address] [place] [address] Ortega Hines MD 01/17/20[address] Orders [address] [facility] Dermatology [address] [place] [address] Purnima Quintero MA Pain in joint of left shoulder 01/17/2025 10:00 AM EDT Office Visit 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, unspecified complication, subsequent encounter (Primary Dx); Pain in joint of left shoulder 12/28/2024 Telephone [facility] [address] [place] [facility] [place] [address] Roopa Mensah MA 12/28/2024 Refill [facility] [address] [place] [facility] [place] [address] Roopa Mensah MA Chronic diastolic heart failure (CMS/HCC) 12/28/2024 Refill [facility] [address] [facility] [place] [address] Roopa Mensah MA Paroxysmal atrial fibrillation (CMS/HCC) 12/24/2024 1:40 PM EDT Office Visit [facility] [address] [place] [facility] [place] [address] Kellie Alva MD Paroxysmal A-fib (CMS/HCC) (Primary Dx); Sinus node dysfunction (CMS/HCC); Cardiac pacemaker in situ; Atherosclerosis of [place] coronary artery of [place] heart without angina pectoris; Pulmonary hypertension (CMS/HCC); Venous insufficiency; Chronic diastolic congestive heart failure (CMS/HCC); Pure hypercholesterolemia 12/04/2024 Refill [facility] Cardiology [address] [place] [address] [place] [address] Ingrid Cannon CNP Paroxysmal atrial fibrillation (CMS/HCC) 11/27/2024 1:30 PM EDT Lab [facility] [address] [place] [address] [place] [address] Pain in joint of left shoulder 11/27/2024 1:00 PM EDT Follow-Up [address] [place] [address] Jan Albert MD Pain in joint of left shoulder (Primary Dx) 11/19/2024 Orders Only [address] [place] [phone] James Gracia MA Pain in joint of left shoulder 11/16/2024 Orders Only [address] [place] [address] Madison Maria MD Infection (Primary Dx) 11/15/[address] [place] [address] Ritu Harmon MA Aspiration 11/13/2024 Orders Only [address] [place] [address] Niels Venegas MD Chronic left shoulder pain (Primary Dx) 11/13/2024 1:35 PM EST - 11/13/2024 11:59 PM EST Hospital Encounter [facility] X-Ray Imaging [address] [place] [address] [place] [address] Discharge Disposition: Home or Self Care (01) 11/13/2024 1:10 PM EST Office Visit [address] [place] [address] Jan Albert MD Pain in joint of left shoulder (Primary Dx) from Last 3 Months Allergies No known active allergies Medications Medication [...] get device check to assess AF burden -[id number] 3 -Continue Xarelto 20 mg daily, continue propafenone to 25 mg 3 times a day Sinus node dysfunction 10/07/2020 Assessment & Plan (11/18/2022 10:55 AM EST): - S/p PPM [place] [employer] -We will have her scheduled for [...] Chronic obstructive lung disease 01/12/2012 Atherosclerosis of [place] co ronary artery of [place] heart without angina pectoris 01/12/2012 Assessment & Plan (11/18/2022 10:53 AM EST): Coronary artery disease is stable -no CP or LEA -last cath 2010, mild disease no PCI / stent -continue medications Diaphragmatic hernia 01/12/2012 Edema 01/12/2012 Paroxysmal supraventricular tachycardia 01/12/20 12 Resolved Problems Problem Noted Date Diagnosed Date Resolved Date Acute on chronic diastolic ( congestive) heart failure 02/27/2024 12/24/2024 Immunizations Name Administration Dates Next Due Influenza, High Dose Seasona l, Preservative Free 08/06/2019 Influenza, Seasonal, Quadriv alent, Adjuvanted 07/08/2022,08/20/2021,08/04/2020 Influenza, Unspecified 07/05/2017,2015,06/25/2015,07/12,08/07/2013 Influenza, seasonal,quadriva lent, preservative free 06/12/2015 Moderna SARS-CoV-2 Vaccination 11/18/2020,2020 Pneumococcal Conjugate PCV 13 08/04/2020, 017 Pneumococcal Polysaccharide PPV23 08/20/2021 Social History Tobacco Use Types Packs/Day Years [...] Info) Description 02/20/2025 11:00 AM EDT Follow-Up [facility] Infectious Disease [address] [place] [address] Ortega Hines MD [address] [facility]/[place] [address] Procedures Procedure Name Priority Date/Time Associated Diagnosis [...] EDT Pain in joint of left shoulder AL ARTHROCENTESIS ASPIR&/INJ MAJOR JT/BURSA W/O US Routine [...] - 10.60 10*3/uL 01/17/2025 5:59 PM EDT [facility] ([facility]) RBC 3.91 3.80 - 5.00 10*6/uL 01/17/2025 5:59 PM EDT [facility] ([facility]) Hemoglobin 9.8(L) 12.0 - 15.0 g/dL 01/17/2025 5:59 PM EDT [facility] ([facility]) Hematocrit 33.1(L) 36.0 - 45.0 % 01/17/2025 5:59 PM EDT [facility] ([facility]) MCV 84.7 82.0 - 98.0 fL 01/17/2025 5:59 PM EDT [facility] ([facility]) MCH 25.1(L) 27.0 - 33.0 pg 01/17/2025 5:59 PM EDT [facility] ([facility]) MCHC 29.6(L) 32.0 - 35.0 g/dL 01/17/2025 5:59 PM EDT [facility] ([facility]) RDW 18.4(H) 11.5 - 15.0 % 01/17/2025 5:59 PM T [facility] ([facility]) Neutrophils % 71.9 40.0 - 72.0 % 01/17/2025 5:59 PM EDT [facility] ([facility]) Lymphocytes % 17.9(L) 20.0 - 45.0 % 01/17/2025 5:59 PM EDT [facility] ([facility]) Monocytes % 6.8 5.0 - 12.0 % 01/17/2025 5:59 PM EDT [facility] ([facility]) Eosinophils % 2.2 0.0 - 6.0 % 01/17/2025 5:59 PM EDT [facility] ([facility]) Basophils % 0.9 0.0 - 1.0 % 01/17/2025 5:59 PM EDT [facility] ([facility]) Neutrophils Absolute 5.32 1.60 - 7.60 10*3/uL 01/17/2025 5:59 PM EDT [facility] ([facility]) Lymphocytes Absolute 1.32 1.20 - 4.00 10*3/uL 01/17/2025 5:59 PM T [facility] ([facility]) Monocytes Absolute 0.50 0.10 - 1.00 10*3/uL 01/17/2025 5:59 PM EDT [facility] ([facility]) Eosinophils Absolute 0.16 0.00 - 0.50 10*3/uL 01/17/2025 5:59 PM EDT [facility] ([facility]) Basophils Absolute 0.07 0.00 - 0.20 10*3/uL 01/17/2025 5:59 PM EDT [facility] ([facility]) Platelets 338 150 - 400 10*3/uL 01/17/2025 5:59 PM EDT [facility] ([facility]) nRBC % 0.0 0 % 01/17/2025 5:59 PM EDT [facility] ([facility]) Immature Granulocytes % 0.3 0.0 - 1.0 % 01/17/2025 5:59 PM EDT [facility] ([facility]) Immature Granulocytes Absolute 0.02 0.00 - 0.20 10*3/uL 01/17/2025 5:59 PM EDT [facility] ([facility]) Blood Venous blood specimen / Unknown Venipuncture / Unknown 01/17/2025 11:19 AM EDT 01/17/2025 11:19 AM EDT Ortega Hines MD LAB BLOOD ORDERABLES Performing Organization Address City/[facility] Co de Phone Number [facility]) [address] [place], [place] [id number] * (ABNORMAL) C-reactive protein (01/17/2025 11:19 AM EDT) Only the most recent of2 resultswithin the time period is included. CRP 6.8(H) <=5.0 mg/L 01/18/2025 3:12 PM EDT [facility] ([facility]) Comment:Testing performed us ing a new methodology, turbidimetry. Normal ranges have been updated. Old normal range was <8 mg/L. Blood Venous blood specimen / Unknown Venipuncture / Unknown 01/17/2025 11:19 AM EDT 01/17/2025 11:19 AM EDT Ortega Hines MD LAB BLOOD ORDERABLES Performing Organization Address City/[facility]/ZIP Co de Phone Number [facility]) [address] [place] [address] * (ABNORMAL) Basic metabolic panel (01/17/2025 11:19 AM EDT) Sodium 135(L) 136 - 145 mmol/L 01/17/2025 5:04 PM EDT [facility] ([facility]) Potassium 4.1 3.5 - 5.1 mmol/L 01/17/2025 5:04 PM EDT [facility] ([facility]) Chloride 103 98 - 107 mmol/L 01/17/2025 5:04 PM EDT [facility] ([facility]) CO2 26 21 - 31 mmol/L 01/17/2025 5:04 PM EDT [facility] ([facility]) BUN 17 7 - 25 mg/dL 01/17/2025 5:04 PM EDT [facility] ([facility]) Creatinine 0.64 0.60 - 1.20 mg/dL 01/17/2025 5:04 PM EDT [facility] ([facility]) Glucose 92 70 - 100 mg/dL 01/17/2025 5:04 PM EDT [facility] ([facility]) Calcium 8.9 8.6 - 10.3 mg/dL 01/17/2025 5:04 PM EDT [facility] ([facility]) Anion Gap 10 7 - 20 mmol/L 01/17/2025 5:04 PM EDT [facility] ([facility]) eGFR 91.0 >60.0 mL/min/1. 73m*2 01/17/2025 5:04 PM EDT [facility] ([facility]) Comment:The [facility] s estimated glomerular filtration rate (eGFR) will [...] one group of individuals. BUN/Creatinine Ratio 26.6 05/0 04/2025 5:04 PM EDT [facility] ([facility]) Blood Venous blood specimen / Unknown Venipuncture / Unknown 01/17/2025 11:19 AM EDT 01/17/2025 11:19 AM EDT Ortega Hines MD LAB BLOOD ORDERABLES [facility] ([facility]) [address] [place] [address] * (ABNORMAL) Sedimentation rate (11/27/2024 1:27 PM EDT) Sed Rate 96(H) <30 mm/hr 11/27/2024 3:4 0 PM EDT [facility] ([facility]) Blood Venous blood specimen / Unknown Venipuncture / Unknown 11/27/2024 1:27 PM EDT 11/27/2024 3:16 PM EDT Jan Albert MD LAB BLOOD ORDERABLES [facility] ([facility]) [address] [place] [address] * AL ARTHROCENTESIS ASPIR&/INJ MAJOR JT/BURSA W/O US (11/13/2024 [...] to verify the correct patient, procedure, equipment, presidential support specialist and site/side marked as required. Jan Albert MD IN CLINIC/BEDSIDE OR DERABLES * (ABNORMAL) Body fluid culture (11/13/2024 2:35 PM EST) Culture Isolated from Broth Culture Streptococcus sanguinis(A) VIOLET 11/16/2024 9:54 AM EST [facility] ([facility]) Comment:Presumptive Identifi cation Gram Stain Result Many Polymorphonuclear leukocytes 11/16/2024 9:54 AM EST [facility] ([facility]) Gram Stain Result No organisms seen 11/16/2024 9:54 AM EST [facility] ([facility]) Synovial Fluid (Shoulder) Non-blood Collection / Unknown 11/13/2024 2:35 PM EST 11/13/2024 2:36 PM EST Jan Albert MD LAB MICROBIOLOGY - G ENERAL ORDERABLES Performing Organization Address City/[facility]/ZIP Co de Phone Number [facility] ([facility]) [address] [place], [place] [id number] * Anaerobic culture (11/13/2024 2:35 PM EST) Anaerobic Culture No anaerobes isolated at day 5 VIOLET 11/19/2024 10:53 AM EDT [facility] ([facility]) Synovial Fluid (Shoulder) Non-blood Collection / Unknown 11/13/2024 2:35 PM EST 11/13/2024 2:36 PM EST Jan Albert MD LAB MICROBIOLOGY - G ENERAL ORDERABLES Performing Organization Address City/[facility] Co de Phone Number [facility] ([facility]) [address] [place] [address] * XR shoulder 2+ views left (11/13/2024 [...] PROCEDURES from Last 3 Months Care Teams Steel Cutter Relationship Specialty Start Date End Date Renny Hansen MD [address] [facility] [address] [place] [address] PCP - General Internal Medicine 07/18/24 Balta Cardenas MD [address] [place] [address] Referring Physician 11/15/24
--- OUTSIDE RECORDS SUMMARY | 2025-02-11 10:37 | XMS_ITS | Encounter Summary ---
Author Organization [facility] Address [address] [place] [address] Care Team Providers Care Woodworking Craftsman Name Role Phone Renny Hansen MD Primary Care Provider [phone] Balta Cardenas MD Unavailable [phone] Reason for Visit * Reason Onset Date Comments Med Refill 02/08/2025 Encounter Details Date Type Department Care Team (Late st Contact Info) Description 02/08/2025 Refill [facility] at [facility] [address] [place] [address] [place], [place] Essential hypertension Social History Tobacco Use Types Packs/Day Years Used Date Smoking Tobacco: Former Cigarettes 1999 Smokeless Tobacco: Never Alcohol Use Standard [...] 11:00 AM EDT Follow-Up [facility] Infectious Disease [address] [place] [address] Ortega Hines MD [address] [facility]/[place] [address] documented as of this encounter Visit Diagnoses Diagnosis Essential hypertension Unspecified essential hypertension documented in this encounter Care Teams Woodworking Craftsman Relationship Specialty Start Date End Date Renny Hansen MD [address] [facility] [address] [place] [address] PCP - General Internal Medicine 07/18/24 Balta Cardenas MD [address] [place] [address] Referring Physician 11/15/24 documented as of this encounter
--- OUTSIDE RECORDS SUMMARY | 2025-02-11 10:37 | XMS_ITS | Encounter Summary ---
Author Organization [facility] Address [address] [facility] [place] [address] Care Team Providers Care Social Science Manager Name Role Phone Renny Hansen MD Primary Care Provider [phone] Renny Hansen MD Unavailable [phone] Cindi Jenkins FIVE PIECE EXPANSION MAKER HAND Unavailable [phone] Lisa Ramirez HYPO SPLASHER Unavailable Unavailable Encounter Details Date Type Department Care Team (Late st Contact Info) Description 09/26/2024 Abstract [facility] 112 [facility] 110 [place] [address] Renny Hansen MD 112 [facility] 110 [place] [address] Social History Tobacco Use Types Packs/Day Years [...] week 08/30/2023 How often do you attend voodoo or episcopal serv ices? Patient declined 08/30/2023 Do you belong to any clubs o r organizations such as voodoo groups, unions, fraternal or athletic groups, or [...] Date Recorded Patient Health Questionnaire-2 Score 0 05/31/2024 [facility] - Occupational Stress Questionnaire Answer Date [...] place to sleep or slept in a senior living (including now)? Patient refused 08/30/2023 Comments Unknown [...] Visit [facility] [address] [facility] 110 [place] [address] Renny Hansen MD [address] [facility] 110 [place] [address] documented as of this encounter Visit Diagnoses Not on filedocumented in this encounter Additional Health Concerns Assessment Noted Time PHQ-9 Depression Total Score: 1 09/06/20 23 2:00 PM EST documented as of this encounter Care Teams Social Science Manager Relationship Specialty Start Date End Date Renny Hansen MD [address] [facility] 110 [place] [address] PCP - General Internal Medicine 09/19/24 Renny Hansen MD [address] [facility] 110 [place] [address] PCP - Medical [place] 09/12/2409/11 Cindi Jenkins, FIVE PIECE EXPANSION MAKER HAND Assistant Womens Volleyball Coach Family Medicine 11/06/24 12/05/24 Lisa Ramirez LPN 12/05/24 documented as of this encounter
--- OUTSIDE RECORDS SUMMARY | 2025-02-11 10:37 | XMS_ITS | Encounter Summary ---
Author Organization [facility] Address [address] [facility] [place] [address] Care Team Providers Care Credit Controller Name Role Phone Jazmín Calvillo DATE PULLER Unavailable [phone] Renny Hansen MD Primary Care Provider [phone] Renny Hansen MD Unavailable [phone] Cindi Jenkins DIRECTOR OF ENTERPRISE APPLICATIONS Unavailable [phone] Lisa Ramirez SENIOR BUSINESS DEVELOPMENT MANAGER Unavailable Unavailable Encounter Details Date Type Department Care Team (Late st Contact Info) Description 08/27/2024 Abstract [facility] [address] [place] 110 [place] [address] Unallocated, Noms Provider, [address] [place], [place] [id number] Social History Tobacco Use Types Packs/Day Years [...] week 08/30/2023 How often do you attend yazidi or islam serv ices? Patient declined 08/30/2023 Do you belong to any clubs o r organizations such as yazidi groups, unions, [employer] or athletic groups, or school groups? Yes [...] Recorded Patient Health Questionnaire-2 Score 0 05/31/2024 [facility]at ional [facility] - Occupational Stress Questionnaire Answer Date [...] mortgage or rent on time? No 08/30/20 Number of Places Lived in the Last Year Not on f ile 08/30/2023 In the last 12 months, was t here a time when you did not have a steady place to sleep or slept in a correction (including now)? Patient refused 08/30/2023 Comments Unknown [...] Visit [facility] [address] [facility] 110 [place] [address] Renny Hansen MD [address] [place] 110 [place] [address] documented as of this encounter Visit Diagnoses Not on filedocumented in this encounter Additional Health Concerns Assessment Noted Time PHQ-9 Depression Total Score: 1 09/06/20 23 2:00 PM EST documented as of this encounter Care Teams Credit Controller Relationship Specialty Start Date End Date Renny Hansen MD [address] [place] [address] [place] [address] PCP - General Internal Medicine 09/19/24 Renny Hansen MD [address] [place] [address] [place] [address] PCP - Medical [place] 09/12/2409/11 Jazmín Calvillo NP Nurse Practitioner Family Medicine 05/17/24 09/18/24 Cindi Jenkins LSW Auto Damage Insurance Appraiser Family Medicine 11/06/24 12/05/24 Lisa Ramirez LPN 12/05/24 documented as of this encounter
--- OUTSIDE RECORDS SUMMARY | 2025-02-11 10:37 | XMS_ITS | Encounter Summary ---
Author Organization [facility] Address [address] [facility] [place] [address] Care Team Providers Care Manager Fund Name Role Phone Renny Hansen MD Primary Care Provider [phone] Renny Hansen MD Unavailable [phone] Cindi Jenkins WASTEWATER ANALYST LAB ANALYST Unavailable [phone] Lisa Ramirez FLOOR STEWARD/STEWARDESS Unavailable Unavailable Encounter Details Date Type Department Care Team (Late st Contact Info) Description 09/21/2024 Abstract [facility] 112 [facility] 110 [place] [address] Renny Hansen MD 112 [facility] 110 [place] [address] Social History Tobacco Use Types [...] week 08/30/2023 How often do you attend hindu or judaism serv ices? Patient declined 08/30/2023 Do you belong to any clubs o r organizations such as hindu groups, unions, fraternal or athletic groups, or [...] Recorded Patient Health Questionnaire-2 Score 0 05/31/2024 [facility] of Occupat ional [facility] - Occupational Stress Questionnaire Answer Date Recorded [...] place to sleep or slept in a usp (including now)? Patient refused 08/30/2023 Comments Unknown [...] Visit [facility] [address] [facility] 110 [place] [address] Renny Hansen MD [address] [facility] 110 [place] [address] documented as of this encounter Visit Diagnoses Not on filedocumented in this encounter Additional Health Concerns Assessment Noted Time PHQ-9 Depression Total Score: 1 09/06/20 23 2:00 PM EST documented as of this encounter Care Teams Manager Fund Relationship Specialty Start Date End Date Renny Hansen MD [address] [facility] 110 [place] [address] PCP - General Internal Medicine 09/19/24 Renny Hansen MD [address] [facility] 110 [place] [address] PCP - Medical [place] 09/12/2409/11 Cindi Jenkins, WASTEWATER ANALYST LAB ANALYST Cost Coordinator Family Medicine 11/06/24 12/05/24 Lisa Ramirez LPN 12/05/24 documented as of this encounter
--- OUTSIDE RECORDS SUMMARY | 2025-02-11 10:37 | XMS_ITS | Encounter Summary ---
Author Organization [facility] Address [address] [facility] [place] [address] Care Team Providers Care Echocardiographer Name Role Phone Renny Hansen MD Primary Care Provider [phone] Renny Hansen MD Unavailable [phone] Cindi Jenkins BRANCH LENDING OFFICER Unavailable [phone] Lisa Ramirez CROP DUSTER HELPER Unavailable Unavailable Encounter Details Date Type Department Care Team (Late st Contact Info) Description 10/03/2024 Orders Only [facility] [address] [place] 110 [place] [address] Carlene Yan LPN [address] [place] [address] Nausea Social History Tobacco Use Types Packs/Day Years [...] week 08/30/2023 How often do you attend spiritism or latter-day serv ices? Patient declined 08/30/2023 Do you belong to any clubs o r organizations such as spiritism groups, unions, fraternal or athletic groups, or [...] Recorded Patient Health Questionnaire-2 Score 0 05/31/2024 [facility] of Occupat ional Health - [...] place to sleep or slept in a jail (including now)? Patient refused 08/30/2023 Comments Unknown [...] Visit [facility] [address] [facility] 110 [place] [address] Renny Hansen MD [address] [facility] 110 [place] [address] documented as of this encounter Visit Diagnoses Diagnosis Nausea Nausea alone documented in this encounter Additional Health Concerns Assessment Noted Time PHQ-9 Depression Total Score: 1 09/06/20 23 2:00 PM EST documented as of this encounter Care Teams Echocardiographer Relationship Specialty Start Date End Date Renny Hansen MD [address] [facility] 110 [place] [address] PCP - General Internal Medicine 09/19/24 Renny Hansen MD [address] [place] [address] [place] [address] PCP - Medical [place] 09/12/2409/11 Cindi Jenkins LSW Portable Irrigation Operator Family Medicine 11/06/24 12/05/24 Lisa Ramirez LPN 12/05/24 documented as of this encounter
--- OUTSIDE RECORDS SUMMARY | 2025-02-11 10:37 | XMS_ITS | Encounter Summary ---
Author Organization [facility] Address [address] [facility] [place] [address] Care Team Providers Care Porcelain Enamel Sprayer Name Role Phone Renny Hansen MD Primary Care Provider [phone] Renny Hansen MD Unavailable [phone] Cindi Jenkins DAIRY POWDER MIXER OPERATOR Unavailable [phone] Lisa Ramirez GARDE MANAGER Unavailable Unavailable Encounter Details Date Type Department Care Team (Late st Contact Info) Description 10/30/2024 Abstract [facility] 112 [facility] 110 [place] [address] Renny Hansen MD 112 [facility] 110 [place] [address] Social History Tobacco Use Types [...] material from your doctor or pharmacy? Never 10/10/2024 Humiliation, Afraid, Rape, and Kick questionnair e [...] Isolation Panel [NHANES] A nswer Date Recorded Frequency of Communication with Friends and Fami ly Not on file 10/10/2024 Frequency of Social Gatherings with Friends and Family Not on file 10/10/2024 How often do you attend cheondoism or gnosticist serv ices? Patient declined 10/10/2024 Do you belong to any clubs o r organizations such as cheondoism groups, unions, fraternal or athletic groups, or school groups? No 10/10/2024 How often do you attend meet ings of the clubs or organizations you belong to? Patient declined 10/10/2024 Are you , , di vorced, , never , or living with a partner? 10/10/2024 AUDIT-C Answer Date Recorded Q1: How often [...] care, and heating? Not hard at all 10/10/2024 PHQ-2 Answer Date Recorded Patient Health Questionnaire-2 Score 0 10/17/2024 [facility] of Occupat ional Health - Occupational [...] PRAPARE - Transportation Answer Date Re corded Lack of Transportation (Medical) Not on file 10/10/2024 In the past 12 months, has l ack of transportation kept you from meetings, work, or from getting things needed for daily living? No 10/10/2024 Housing Stability Vital Sign Answer Ananda e [...] to sleep or slept in a senior care (including now)? Patient refused 08/30/2023 Housing Stability Vital Sign Answer Ananda e Recorded In the last 12 months, was t here a time when you were not able to pay the mortgage or rent on time? No 10/10/2024 Number of Times Moved in the Last Year Not on fi le 10/10/2024 At any time in the past 12 m [facility], were you homeless or living in a senior care (including now)? No 10/10/2024 Comments Unknown Sex and Gender Information Value Date Recorded Sex Assigned at Not on file Legal Sex Female 6:35 PM EDT Gender Identity Not on file Sexual Orientation Not on file documented as of this encounter Plan of Treatment Upcoming Encounters Date Type Department Care Team (Late st Contact Info) Description 02/18/2025 11:30 AM EDT Office Visit [facility] 112 [facility] 110 [place] [address] Renny Hansen MD 112 [facility] 110 [place] [address] documented as of this encounter Visit Diagnoses Not on filedocumented in this encounter Additional Health Concerns Assessment Noted Time PHQ-9 Depression Total Score: 1 09/06/20 23 2:00 PM EST documented as of this encounter Care Teams Porcelain Enamel Sprayer Relationship Specialty Start Date End Date Renny Hansen MD [address] [facility] 110 [place] [address] PCP - General Internal Medicine 09/19/24 Renny Hansen MD [address] [facility] 110 [place] [address] PCP - Medical [place] 09/12/2409/11 Cindi Jenkins LSW Human Resources Admin Family Medicine 11/06/24 12/05/24 Lisa Ramirez LPN 12/05/24 documented as of this encounter
--- OUTSIDE RECORDS SUMMARY | 2025-02-11 10:37 | XMS_ITS | Encounter Summary ---
Author Organization [facility] Address [address] [place] [address] Care Team Providers Care Research Nurse Name Role Phone Renny Hansen MD Primary Care Provider [phone] Renny Hansen MD Unavailable [phone] Cindi Jenkins SUPPORT ANALYST Unavailable [phone] Lisa Ramirez LPN Unavailable Unavailable Encounter Details Date Type Department Care Team (Late st Contact Info) Description 10/02/2024 External Result Encounter [facility] External Department Unsolicited Katharina Toledo, ONCOLOGY NURSE [address] [place] [address] Social History Tobacco Use Types Packs/Day Years [...] How often do you attend sabianist or episcopal serv ices? Patient declined 08/30/2023 [...] 05/31/2024 [facility] Occupat ional Health - [...] place to sleep or slept in a long-term (including now)? Patient refused 08/30/2023 Comments Unknown Sex and Gender Information Value Date Recorded Sex Assigned at Not on file Legal Sex Female 6:35 PM EDT Gender Identity Not on file Sexual Orientation Not on file documented as of this encounter Plan of Treatment Upcoming Encounters Date Type Department Care Team (Late st Contact Info) Description 02/18/2025 11:30 AM EDT Office Visit [facility] 112 [facility] 110 [place] [address] Renny Hansen MD 112 [facility] 110 [place] [address] documented as of this encounter Procedures Procedure Name Priority Date/Time Associated Diagnosis Comments CT SHOULDER LEFT W IV CONTRAST 10/02/2024 4:10 PM EST documented in this encounter Results * CT shoulder left w IV contrast (10/02/2024 4:10 PM EST) Anatomical Region Laterality Modality Upper Extremities, Shoulder Left Comp uted Tomography 10/02/2024 4:10 PM EST Impressions 10/02/2024 4:17 PM EST Similar left axillary lymphadenopathy with largest measuring up to 13 mm in short axis dimension. No enlarging or new lymphadenopathy. Impression dictated by: Etienne Rhodes M.D.10/02/2024 4:14 PM Dictation Location: [id number]-[id number] Transcribed By: STAR 10/02/24 161 Dictated By: Etienne Rhodes DO 10/02/24 1610 Signed By: <Electronically signed by Etienne Rhodes DO in OV> 10/02/24 1614 Narrative 10/02/2024 4:17 PM EST [facility] [address] [place] [address] CT Scan Report Signed Patient: Breann Starks MR#: [id number] : 1945 Acct:[id number] Age/Sex: 78 / F ADM Date: 10/02/24 Loc: XT Room: Type: REG RCR Attending Dr: Katharina Toledo CUSTOMER SALES SPECIALIST Copies to: Katharina Toledo APRN Ordering Provider: [...] degenerative change. CT/CT shoulder LT w con Procedure Note Radiology, Radiologist, MD - 10/02/2024 [facility] [address] [place], [place] [id number] CT Scan Report Signed Patient: Breann Starks TMR#: [id number] : 8Acct:[id number] Age/Sex: 78 / FADM Date: 10/02/24 Loc: XT Room:Type: REG RCR Attending Dr: Katharina Toledo CUSTOMER SALES SPECIALIST Copies to: Katharina Toledo APRN Ordering Provider: Katharina Toledo APRN Date of Service: 10/02/24 CT/CT shoulder LT w con: reeval left axillalymph node CT left shoulder TECHNIQUE: 90 cc of Isovue-300The CT exam was performed using one or morethe following dose reduction techniques: Automated exposure control, adjustment of the MAand/or Kv according to patient size, or use of the iterative reconstruction technique. COMPARISON: 06/26/2024 HISTORY: Left shoulder pain. Decreased range of motion. Follow-up Lymphadenopathy Redemonstration of left axillary lymphadenopathy. Largest measures up to13 mm in short axis dimension. This is unchanged from prior examination. Additional smallerlymph nodes identified. No new lymphadenopathy. Similar small left supraclavicular lymph nodes.Right shoulder arthroplasty artifact. Similar acromioclavicular degenerative change. CT/CT shoulder LT w con IMPRESSION: Similar left axillary lymphadenopathy with largest measuring up to 13 mmin short axis dimension. No enlarging or new lymphadenopathy. Impression dictated by: Etienne Rhodes M.D.10/02/2024 4:14 PM Dictation Location: [place] [address] Transcribed By: [facility] 10/02/24 1614 Dictated By: Etienne Rhodes DO 10/02/24 1610 Signed By: <Electronically signed by Etienne Rhodes DO in OV> 10/02/24 1614 us Katharina Toledo ONCOLOGY NURSE IMG CT PROCEDURES Final Resul t documented in this encounter Visit Diagnoses Not on filedocumented in this encounter Additional Health Concerns Assessment Noted Time PHQ-9 Depression Total Score: 1 09/06/20 23 2:00 PM EST documented as of this encounter Care Teams Research Nurse Relationship Specialty Start Date End Date Renny Hansen MD [address] [email or web address] 110 [place] [address] PCP - General Internal Medicine 09/19/24 Renny Hansen MD [address] [email or web address] 110 [place] [address] PCP - Medical [facility] 09/12/2409/11 Cindi Jenkins LSW Antenna Engineer Family Medicine 11/06/24 12/05/24 Lisa Ramirez LPN 12/05/24 documented as of this encounter
--- OUTSIDE RECORDS SUMMARY | 2025-02-11 10:37 | XMS_ITS | Encounter Summary ---
Author Organization [facility] Address [address] [place] [address] Care Team Providers Care Crutch Maker Name Role Phone Renny Hansen MD Primary Care Provider [phone] Renny Hansen MD Unavailable [phone] Lisa Ramirez LPN Unavailable Unavailable Reason for Visit * Reason Onset Date Comments Med Refill 02/08/2025 Encounter Details Date Type Department Care Team (Late st Contact Info) Description 02/08/2025 Refill [facility] [address] [facility] 110 [place] [address] Renny Hansen MD 112 [facility] 110 [place] [address] Persistent atrial fibrillation (HCC) (CMS/HCC) Social History Tobacco Use Types Packs/Day Years [...] often do you attend chur ch or rastafari services? Patient declined 11/12/2024 Do you belong to any clubs o r organizations such as adventist groups, unions, fraGenesco or athletic groups, or school groups? No [...] Recorded Patient Health Questionnaire-2 Score 0 10/17/2024 [facility] - Occupational Stress Questionnaire Answer [...] a correction (including now)? Patient refused 08/30/2023 Housing Stability [...] any time in the past [address] [facility], were you homeless or living in a correction (including now)? No 11/12/2024 Comments Unknown Sex [...] EDT Office Visit [facility] [address] [facility] 110 [place] [address] Renny Hansen MD 112 [facility] 110 [place] [address] documented as of this encounter Visit Diagnoses Diagnosis Persistent atrial fibrillation (HCC) (CMS/HCC) Atrial fibrillation documented in this encounter Additional Health Concerns Assessment Noted Time PHQ-9 Depression Total Score: 1 09/06/20 23 2:00 PM EST documented as of this encounter Care Teams Crutch Maker Relationship Specialty Start Date End Date Renny Hansen MD [address] [facility] 110 [place] [address] PCP - General Internal Medicine 09/19/24 Renny Hansen MD [address] [facility] 110 [place] [address] PCP - Medical [place] 09/12/2409/11 Lisa Ramirez LPN 12/05/24 documented as of this encounter
--- OUTSIDE RECORDS SUMMARY | 2025-02-11 10:37 | XMS_ITS | Encounter Summary ---
Author Organization [facility] Address [address] [place] [address] Care Team Providers Care Processes Chemical Design Engineer Name Role Phone Renny Hansen MD Primary Care Provider [phone] Renny Hansen MD Unavailable [phone] Cindi Jenkins BAG GRADER Unavailable [phone] Lisa Ramirez LPN Unavailable Unavailable Encounter Details Date Type Department Care Team (Late st Contact Info) Description 10/16/2024 External Result Encounter [facility] External Department Unsolicited Dmitriy Duque, DO [address] [facility] [address] [place] [address] Social History Tobacco Use Types Packs/Day Years [...] file 10/10/2024 How often do you attend latter day or pentecostalism serv ices? Patient declined 10/10/2024 Do you belong to any clubs o r organizations such as latter day groups, unions, fraternal or athletic groups, or [...] Recorded Patient Health Questionnaire-2 Score 0 10/17/2024 [facility] of Occupat ional Health - Occupational [...] place to sleep or slept in a residential (including now)? Patient refused 08/30/2023 Housing Stability Vital Sign Answer Ananda e Recorded In the last 12 months, was t here a time when you were not able to pay the mortgage or rent on time? No 10/10/2024 Number of Times Moved in the Last Year Not on fi le 10/10/2024 At any time in the past 12 m [facility], were you homeless or living in a residential (including now)? No 10/10/2024 Comments Unknown Sex and Gender Information Value Date Recorded Sex Assigned at Not on file Legal Sex Female 6:35 PM EDT Gender Identity Not on file Sexual Orientation Not on file documented as of this encounter Functional Status * Over the past 2 weeks, how often have you been bothered by any of the following problems? Question Answer Date of Assessment Author Little interest or pleasure in doing things Not at all 10/17/2024 11:00 AM Carlene Izaguirre L PN Feeling down, depressed, or hopeless Not at all 10/17/2024 11:00 AM Carlene Izaguirre L PN Patient Health Questionnaire -2 Score 0 10/17/2024 11:00 AM Carlene Izaguirre L PN documented as of this encounter Plan of Treatment Upcoming Encounters Date Type Department Care Team (Late st Contact Info) Description 02/18/2025 11:30 AM EDT Office Visit [facility] [address] [place] [address] [place] [address] Renny Hansen MD 112 [facility] 110 [place] [address] documented as of this encounter Procedures Procedure Name Priority Date/Time Associated Diagnosis Comments BI MAMMOGRAM DIAGNOSTIC TOMOSYNTHESIS BILATERAL 10/16/2024 1:43 PM EST documented in this encounter Results * Bilateral diagnostic mammogram with tomosynthesis (10/16/2024 1:43 PM EST) Anatomical Region Laterality Modality Breast Bilateral Mammography 10/16/2024 1:43 PM EST Impressions 10/16/2024 2:30 PM EST NO MAMMOGRAPHIC OR ULTRASOUND EVIDENCE OF MALIGNANCY. [...] Benton Jr., D.OMeena10/16/2024 2:20 PM Dictation Location: [facility] Tech: Ghazal Barber Transcribed By: STAR 10/16/24 1420 Dictated By: Francisco J Benton Jr, DO 10/16/24 1343 Signed By: <Electronically signed by Francisco J Benton Jr, DO in OV> 10/16/24 1420 Narrative 10/16/2024 2:30 PM EST [facility] [place] [address] [place], [place] [id number] Ultrasound Report Signed Patient: Breann Starks MR#: [id number] 171 : 1945 Acct:[id number] Age/Sex: 78 / F ADM Date: 10/16/24 Loc: [facility] Room: Type: REG CLI Attending Dr: Dmitriy Duque DO Ordering Provider: Dmitriy Duque DO Date of Service: 10/16/24 US/US axilla: R92.8 ([id number]) MM/MM diagnostic mammo BI w/CAD: ENLARGED LT [...] area appear patent and compressible. US/US axilla Procedure Note Radiology, Radiologist, MD - 10/16/2024 [facility] [place] [address] [place] [address] Ultrasound Report Signed Patient: Breann Starks TMR#: [id number] : 8Acct:[id number] Age/Sex: 78 / FADM Date: 10/16/24 Loc: [facility] Room:Type: REG CLI Attending Dr: Dmitriy Duque DO Ordering Provider: Dmitriy Duque DO Date of Service: 10/16/24 US/US axilla: R92.8 ([id number]) MM/MM diagnostic mammo BI w/CAD: ENLARGED LT AXILLARY LYMPHNODE Copies to: Dmitriy Duque DO CLINICAL DATA: Abnormal lymph node seen on CT left shoulder study. BilateralDIAGNOSTIC MAMMOGRAM - WITH TOMOSYNTHESIS AND CAD , rightLIMITEDBREAST ULTRASOUND COMPARISON:CT left shoulder 10/02/2024 Tomosynthesis imaging was obtained using low-dose digital technique.This examination was reviewed with the aid of CAD. Additional ultrasound imaging was also obtained. Mammogram: The breasts are composed of scattered fibroglandular densities. Patientpositioning is suboptimal due to patient condition. No new areas of architectural distortion,worrisome masses or suspicious microcalcifications. A prominent vein is seen involving the upper outeraspect of the left breast Ultrasound: Imaging of the left axilla demonstrates multiple prominent lymph nodespresent with diffuse cortical thickening largest measures 2.8 cm in greatest axial dimension. No mass isnoted. Findings of the mammogram and ultrasound discussed with the patient aswell as her . Physical examination of the patient demonstrates erythema/redness in the region ofthe left shoulder/proximal upper arm in the area the patient's prior surgery/biceps tendon repair.The patient was then brought back to the ultrasound suite additional imaging of the area of rednessinvolving the left upper extremity demonstrates no underlying fluid collection to suggest abscess.The veins within the area appear patent and compressible. US/US axilla IMPRESSION: NO MAMMOGRAPHIC OR ULTRASOUND EVIDENCE OF MALIGNANCY. PROMINENT VEININVOLVING THE UPPER OUTER QUADRANT OF THE LEFT BREAST WITH PROMINENT AXILLARY LYMPH NODES. GIVEN THESKIN CHANGES, A THROMBOPHLEBITIS IS SUSPECTED POSSIBLY MONDOR' S DISEASE. CELLULITISCANNOT BE EXCLUDED. A TRIAL OF ANTIBIOTICS IS SUGGESTED. REPEAT ULTRASOUND OF THE LEFT AXILLA AFTER THERAPY IS SUGGESTED TO CONFIRMRESOLUTION. RESULT CODE: 3 Probably Benign Finding Short Term Follow-Up DENSITY CODE: 2 (approximately 25-50% glandular) FOLLOW UP: 3M The false-negative rate of mammography is approximately 10-percent. Management of a palpable abnormality must be based on clinical grounds. Impression dictated by: Francisco J Benton Jr., D.Jaleel10/16/2024 2:20 PM Dictation Location: [facility] Tech: Ghazal Wilson; Kadi Babrer Transcribed By: PWS 10/16/24 1420 Dictated By: Francisco J Benton Jr, DO 10/16/24 1343 Signed By: <Electronically signed by Francisco J Benton Jr, DO inOV> 10/16/24 1420 Dmitriy Duque DO IMG BI PROCEDURES Final Result documented in this encounter Visit Diagnoses Not on filedocumented in this encounter Additional Health Concerns Assessment Noted Time PHQ-9 Depression Total Score: 1 09/06/20 23 2:00 PM EST documented as of this encounter Care Teams Processes Chemical Design Engineer Relationship Specialty Start Date End Date Renny Hansen MD [address] [facility] 110 [place] [address] PCP - General Internal Medicine 09/19/24 Renny Hansen MD [address] [facility] 110 [place] [address] PCP - Medical [place] 09/12/2409/11 Cindi Jenkins LSW Litigation Specialist Family Medicine 11/06/24 12/05/24 Lisa Ramirez LPN 12/05/24 documented as of this encounter
--- OUTSIDE RECORDS SUMMARY | 2025-02-11 10:37 | XMS_ITS | Encounter Summary ---
Author Organization [facility] Address [address] [place] [address] Care Team Providers Care Extraction Supervisor Name Role Phone Jazmín Calvillo DEAN OF STUDENTS Unavailable [phone] Renny Hansen MD Primary Care Provider [phone] Renny Hansen MD Unavailable [phone] Cindi Jenkins WORM PACKER Unavailable [phone] Lisa Ramirez IMPORT/EXPORT CLERK Unavailable Unavailable Encounter Details Date Type Department Care Team (Late st Contact Info) Description 07/24/2024 [facility] [address] [place] [address] Wesley Long MD [address] [place] [address] Social History Tobacco Use Types Packs/Day Years [...] week 08/30/2023 How often do you attend adventism or jain serv ices? Patient declined 08/30/2023 Do you belong to any clubs o r organizations such as adventism groups, unions, fraternal [...] Recorded Patient Health Questionnaire-2 Score 0 05/31/2024 [facility] Occupat ional Health - [...] place to sleep or slept in a half-way (including now)? Patient refused 08/30/2023 Comments Unknown [...] 11:30 AM EDT Office Visit [facility] [address] [facility] 110 [place] [address] Renny Hansen MD [address] [facility] 110 [place] [address] documented as of this encounter Visit Diagnoses Not on filedocumented in this encounter Additional Health Concerns Assessment Noted Time PHQ-9 Depression Total Score: 1 09/06/20 23 2:00 PM EST documented as of this encounter Care Teams Extraction Supervisor Relationship Specialty Start Date End Date Renny Hansen MD [address] [facility] [address] [place] [address] PCP - General Internal Medicine 09/19/24 Renny Hansen MD [address] [place] [address] [address] PCP - Medical [place] 09/12/2409/11 Jazmín Calvillo NP Nurse Practitioner Family Medicine 05/17/24 09/18/24 Cindi Jenkins LSW Resolution Expert Family Medicine 11/06/24 12/05/24 Lisa Ramirez LPN 12/05/24 documented as of this encounter
--- OUTSIDE RECORDS SUMMARY | 2025-02-11 10:37 | XMS_ITS | Encounter Summary ---
Author Organization [facility] Address [address] [facility] [place] [address] Care Team Providers Care Senior Vice President And Chief Information Officer Name Role Phone Renny Hansen MD Primary Care Provider [phone] Renny Hansen MD Unavailable [phone] Cindi Jenkins FAMILY HELPER Unavailable [phone] Lisa Ramirez BI TESTER Unavailable Unavailable Encounter Details Date Type Department Care Team (Late st Contact Info) Description 10/18/2024 Abstract [facility] 112 [facility] 110 [place] [address] Renny Hansen MD 112 [facility] 110 [place] [address] Social History Tobacco Use Types [...] file 10/10/2024 How often do you attend samaritan or pentecostal serv ices? Patient declined 10/10/2024 Do you belong to any clubs o r organizations such as samaritan groups, unions, fraternal or athletic groups, or [...] Recorded Patient Health Questionnaire-2 Score 0 10/17/2024 [facility] of Occupat ional Health - Occupational [...] a alf (including now)? Patient refused 08/30/2023 Housing Stability Vital Sign Answer Ananda e Recorded In the last 12 months, was t here a time when you were not able to pay the mortgage or rent on time? No 10/10/2024 Number of Times Moved in the Last Year Not on fi le 10/10/2024 At any time in the past 12 m [facility], were you homeless or living in a alf (including now)? No 10/10/2024 Comments Unknown Sex and Gender Information Value Date Recorded Sex Assigned at Not on file Legal Sex Female 6:35 PM EDT Gender Identity Not on file Sexual Orientation Not on file documented as of this encounter Plan of Treatment Upcoming Encounters Date Type Department Care Team (Late st Contact Info) Description 02/18/2025 11:30 AM EDT Office Visit [facility] 112 [facility] 110 [place] [address] Renny Hansen MD 112 [facility] 110 [place] [address] documented as of this encounter Visit Diagnoses Not on filedocumented in this encounter Additional Health Concerns Assessment Noted Time PHQ-9 Depression Total Score: 1 09/06/20 23 2:00 PM EST documented as of this encounter Care Teams Senior Vice President And Chief Information Officer Relationship Specialty Start Date End Date Renny Hansen MD [address] [facility] 110 [place] [address] PCP - General Internal Medicine 09/19/24 Renny Hansen MD [address] [facility] 110 [place] [address] PCP - Medical [place] 09/12/2409/11 Cindi Jenkins LSW Spindraw Operator Family Medicine 11/06/24 12/05/24 Lisa Ramirez LPN 12/05/24 documented as of this encounter
--- OUTSIDE RECORDS SUMMARY | 2025-02-11 10:37 | XMS_ITS | Encounter Summary ---
Author Organization [facility] Address [address] [facility] [place] [address] Care Team Providers Care Crisis Intervention Specialist Name Role Phone Shaikh BEREKET Denis Primary Care Provider [phone] Jazmín Calvillo SUPERVISOR PIPE FINISHING Unavailable [phone] Renyn Hansen MD Primary Care Provider [phone] Renny Hansen MD Unavailable [phone] Cindi Jenkins PUBLICATION DIRECTOR Unavailable [phone] Lisa Ramirez WATCH LEADER Unavailable Unavailable Encounter Details Date Type Department Care Team (Late st Contact Info) Description 12/12/2023 Orders Only [facility] [address] [place] [address] Kayley Reeder MD [address] [address] [place] [address] Social History Tobacco Use Types Packs/Day Years [...] week 08/30/2023 How often do you attend baptist or christianity serv ices? Patient declined 08/30/2023 Do you belong to any clubs o r organizations such as baptist groups, unions, fraternal or athletic groups, or [...] Recorded Patient Health Questionnaire-2 Score 0 11/07/2023 [facility] of Occupat ional Health - Occupational [...] place to sleep or slept in a custodial (including now)? Patient refused 08/30/2023 Comments Unknown Sex and Gender Information Value Date Recorded Sex Assigned at Not on file Legal Sex Female 6:35 PM EDT Gender Identity Not on file Sexual Orientation Not on file documented as of this encounter Plan of Treatment Upcoming Encounters Date Type Department Care Team (Late st Contact Info) Description 02/18/2025 11:30 AM EDT Office Visit [facility] 112 [facility] 110 [place] [address] Renny Hansen MD 112 [facility] 110 [place] [address] documented as of this encounter Procedures Procedure Name Priority Date/Time Associated Diagnosis Comments XR DEXA AXIAL SKELETON* Routine 12/12/2023 2:05 PM EDT documented in this encounter Results * XR DEXA AXIAL SKELETON* (12/12/2023 2:05 PM EDT) Anatomical Region Laterality Modality Radiographic Jayashree ging us Kayley Reeder MD IMG XR PROCEDURES Final Resu lt documented in this encounter Visit Diagnoses Not on filedocumented in this encounter Additional Health Concerns Assessment Noted Time PHQ-9 Depression Total Score: 1 09/06/20 23 2:00 PM EST documented as of this encounter Care Teams Crisis Intervention Specialist Relationship Specialty Start Date End Date Shaikh Denis MD [address] [place] [address] PCP - General Internal Medicine 10/17/23 05/16/24 Renny Hansen MD 112 [facility] 110 [place] [address] PCP - General Internal Medicine 09/19/24 Renny Hansen MD 112 [facility] 110 [place] [address] PCP - Medical [facility] 09/12/2409/11 Jazmín Calvillo NP [address] [place] [address] Nurse Practitioner Family Medicine 05/17/24 09/18/24 Cindi Jenkins LSW Envelope Folder Family Medicine 11/06/24 12/05/24 Lisa Ramirez LPN 12/05/24 documented as of this encounter
--- OUTSIDE RECORDS SUMMARY | 2025-02-11 10:37 | XMS_ITS | Encounter Summary ---
Author Organization [facility] Address [address] [place] [address] Care Team Providers Care Senior Lead Project Manager Name Role Phone Shaikh BEREKET Denis Primary Care Provider [phone] Shaikh BEREKET Denis Primary Care Provider [phone] Jazmín Calvillo NON FERROUS MATERIAL HANDLER Unavailable [phone] Renny Hansen MD Primary Care Provider [phone] Renny Hansen MD Unavailable [phone] Cindi Jenkins HARVEST WORKER FIELD CROP Unavailable [phone] Lisa Ramirez LPN Unavailable Unavailable Reason for Visit * Reason Comments Med Refill Encounter Details Date Type Department Care Team (Late st Contact Info) Description 10/13/2023 Refill [facility] [address] [place] [address] Shaikh Denis MD [address] [place] [address] Peptic ulcer, site unspecified, unspecified as acute or chronic, without hemorrhage or perforation; Peptic ulcer Social History Tobacco Use Types Packs/Day Years Used Date Smoking Tobacco: Former Cigarettes Alcohol Use Standard Drinks/Week Comments Not Asked 0 (1 standard drink = 0.6 oz pur e alcohol) (Audit-C) : Negative Humiliation, Afraid, Rape, and Kick questionnair e [...] week 08/30/2023 How often do you attend scientology or latter-day serv ices? Patient declined 08/30/2023 Do you belong to any clubs o r organizations such as scientology groups, unions, fraternal [...] Date Recorded Patient Health Questionnaire-2 Score 0 09/06/2023 [facility] of Occupat ional Health - Occupational Stress [...] on file documented as of this encounter Miscellaneous Notes * Telephone Encounter - Shaikh Cira MD - 10/13/2023 5:43 PM EST Approving, but needs appt for additional refills. documented in this encounter Plan of Treatment Upcoming Encounters Date Type Department Care Team (Late st Contact Info) Description 02/18/2025 11:30 AM EDT Office Visit [facility] 112 [facility] 110 [place] [address] Renny Hansen MD [address] [place] [address] [place] [address] documented as of this encounter Visit Diagnoses Diagnosis Peptic ulcer, site unspecified, unspecified as acute or chronic, without hemorrhage or perforation Peptic ulcer Peptic ulcer, unspecified site, unspecified as acute or chronic, without mention of hemorrhage, perforation, or obstruction documented in this encounter Additional Health Concerns Assessment Noted Time PHQ-9 Depression Total Score: 1 09/06/20 23 2:00 PM EST documented as of this encounter Care Teams Senior Lead Project Manager Relationship Specialty Start Date End Date Shaikh Denis MD PCP - General Internal Medicine 04/05/23 10/16/23 Shaikh Denis MD [address] [place] [address] PCP - General Internal Medicine 10/17/23 05/16/24 Renny Hansen MD [address] [place] [address] PCP - General Internal Medicine 09/19/24 Renny Hansen MD [address] [facility] 110 [place] [address] PCP - Medical [facility] 09/12/2409/11 Jazmín Calvillo NP [address] [place] [address] Nurse Practitioner Family Medicine 05/17/24 09/18/24 Cindi Jenkins LSW Boiler Erector Family Medicine 11/06/24 12/05/24 Lisa Ramirez LPN 12/05/24 documented as of this encounter
--- OUTSIDE RECORDS SUMMARY | 2025-02-11 10:37 | XMS_ITS | Encounter Summary ---
Author Organization [facility] Address [address] [place] [address] Care Team Providers Care Machine Engraver Name Role Phone Shaikh BEREKET Denis Primary Care Provider [phone] Shaikh BEREKET Denis Primary Care Provider [phone] Jazmín Calvillo MOTOR VEHICLE CLERK Unavailable [phone] Renny Hansen MD Primary Care Provider [phone] Renny Hansen MD Unavailable [phone] Cindi Jenkins SET UP INSPECTOR Unavailable [phone] Lisa Ramirez LIEUTENANT FIREFIGHTER Unavailable Unavailable Encounter Details Date Type Department Care Team (Late st Contact Info) Description 09/07/2023 Abstract [facility] [address] [place] [address] Shaikh Denis MD [address] [place] [address] Social History Tobacco Use Types Packs/Day Years [...] week 08/30/2023 How often do you attend temple or yazidi serv ices? Patient declined 08/30/2023 Do you belong to any clubs o r organizations such as temple groups, unions, fraternal or athletic groups, or [...] Recorded Patient Health Questionnaire-2 Score 0 09/06/2023 [facility] of Occupat ional Health - Occupational [...] 02/18/2025 11:30 AM EDT Office Visit [facility] [address] [facility] 110 [place] [address] Renny Hansen MD [address] [facility] 110 [place] [address] documented as of this encounter Visit Diagnoses Not on filedocumented in this encounter Additional Health Concerns Assessment Noted Time PHQ-9 Depression Total Score: 1 09/06/20 23 2:00 PM EST documented as of this encounter Care Teams Machine Engraver Relationship Specialty Start Date End Date Shaikh Denis MD PCP - General Internal Medicine 04/05/23 10/16/23 Shaikh Denis MD [address] [place] [address] PCP - General Internal Medicine 10/17/23 05/16/24 Renny Hansen MD [address] [facility] [address] [place] [address] PCP - General Internal Medicine 09/19/24 Renny Hansen MD [address] [facility] 110 [place] [address] PCP - Medical [facility] 09/12/2409/11 Jazmín Calvillo NP [address] [place] [address] Nurse Practitioner Family Medicine 05/17/24 09/18/24 Cindi Jenkins LSW Data Systems Analyst Family Medicine 11/06/24 12/05/24 Lisa Ramirez LPN 12/05/24 documented as of this encounter
--- OUTSIDE RECORDS SUMMARY | 2025-02-11 10:37 | XMS_ITS | Encounter Summary ---
Author Organization [facility] Address [address] [place] [address] Care Team Providers Care Eradicator Name Role Phone Renny Hansen MD Primary Care Provider [phone] Renny Hansen MD Unavailable [phone] Lisa Ramirez LPN Unavailable Unavailable Encounter Details Date Type Department Care Team (Late st Contact Info) Description 02/06/2025 Patient Outreach [facility] POPULATION [facility] [address] [place] [id number] Saira Chi, ANTWAN Social History Tobacco Use Types Packs/Day Years [...] often do you attend chur ch or taoist services? Patient declined 11/12/2024 Do you belong to any clubs o r organizations such as holiness groups, unions, fraternal or athletic groups, or [...] Recorded Patient Health Questionnaire-2 Score 0 10/17/2024 [facility] of Occupat ional Health - Occupational Stress [...] place to sleep or slept in a longterm (including now)? Patient refused 08/30/2023 Housing Stability [...] any time in the past 12 m [facility], were you homeless or living in a longterm (including now)? No 11/12/2024 Comments Unknown Sex and Gender Information Value Date Recorded Sex Assigned at Not on file Legal Sex Female 6:35 PM EDT Gender Identity Not on file Sexual Orientation Not on file documented as of this encounter Progress Notes * Saira Chi RN - 02/06/2025 2:51 PM EDT Chart reviewed. Spoke with pt on phone. States she is doing well. Denies needs at this time. documented in this encounter Plan of Treatment Upcoming Encounters Date Type Department Care Team (Late st Contact Info) Description 02/18/2025 11:30 AM EDT Office Visit [facility] 112 [facility] [address] [place] [address] Renny Hansen MD [address] [place] [facility] 110 [place] [address] documented as of this encounter Visit Diagnoses Diagnosis Acute on chronic diastolic (congestive) heart failure- Primary Centrilobular emphysema (CMS/HCC) documented in this encounter Additional Health Concerns Assessment Noted Time PHQ-9 Depression Total Score: 1 09/06/20 23 2:00 PM EST documented as of this encounter Care Teams Eradicator Relationship Specialty Start Date End Date Renny Hansen MD 112 [facility] 110 [place] [address] PCP - General Internal Medicine 09/19/24 Renny Hansen MD 112 [facility] 110 [place] [address] PCP - Medical [place] 09/12/2409/11 Lisa Ramirez LPN 12/05/24 documented as of this encounter
--- OUTSIDE RECORDS SUMMARY | 2025-02-11 10:37 | XMS_ITS | Encounter Summary ---
Author Organization [facility] Address [address] [place] [address] Care Team Providers Care Basin Finish Operator Tig Welder Name Role Phone Jazmín Calvillo GRADER GREEN MEAT Unavailable [phone] Renny Hansen MD Primary Care Provider [phone] Renny Hansen MD Unavailable [phone] Cindi Jenkins INSPECTOR PRECISION Unavailable [phone] Lisa Ramirez FRAUD PREVENTION ANALYST Unavailable Unavailable Reason for Referral * Consultation (Routine) - Closed Specialty Diagnoses / Procedures Referred By Millie egan Referred To Contact Neurology Diagnoses Neck pain on left side Procedures [place] OFFICE/OUTPATIENT [facility] MDM 60 MINUTES Renny Hansen MD [address] [address] Phone: tel: fax: Wil Lord MD Referral ID Status Reason Start Date Expiration Date V isits Requested Visits Authorized [id number] Closed Specialty Services Required 09/13/2024 03/12/2025 1 1 Encounter Details Date Type Department Care Team (Late st Contact Info) Description 09/13/2024 Abstract [facility] 112 [facility] 110 [place] [address] Renny Hansen MD 112 [facility] 110 [place], [place] [id number] Neck pain on left side Social History Tobacco Use Types Packs/Day Years [...] How often do you attend adventism or presybeterian serv ices? Patient declined 08/30/2023 Do you [...] Recorded Patient Health Questionnaire-2 Score 0 05/31/2024 [facility] - Occupational [...] AM EDT Office Visit [facility] 112 [facility] 110 [place] [address] Renny Hansen MD 112 [facility] 110 [place] [address] Scheduled Referrals Name Type Priority Associated Diagnoses Order Schedule Ambulatory referral to Neurology Outpatient Referral Routine Neck pain on left side Expected: 09/13/2024 (Approximate), Expires: 03/13/2025 documented as of this encounter Visit Diagnoses Diagnosis Neck pain on left side documented in this encounter Additional Health Concerns Assessment Noted Time PHQ-9 Depression Total Score: 1 09/06/20 23 2:00 PM EST documented as of this encounter Care Teams Basin Finish Operator Tig Welder Relationship Specialty Start Date End Date Renny Hansen MD 112 [facility] 110 [place], [place] [id number] PCP - General Internal Medicine 09/19/24 Renny Hansen MD 112 [facility] 110 [place] [address] PCP - Medical [place] 09/12/2409/11 Jazmín Calvillo NP Nurse Practitioner Family Medicine 05/17/24 09/18/24 Cindi Jenkins LSW Oyster Unloader Family Medicine 11/06/24 12/05/24 Lisa Ramirez LPN 12/05/24 documented as of this encounter
--- OUTSIDE RECORDS SUMMARY | 2025-02-11 10:37 | XMS_ITS | Encounter Summary ---
Author Organization [facility] Address [address] [place] [address] Care Team Providers Care Financial Services Assistant Name Role Phone Shaikh BEREKET Denis Primary Care Provider [phone] Jazmín Calvillo DRAFTING DETAILER Unavailable [phone] Renny Hansen MD Primary Care Provider [phone] Renny Hansen MD Unavailable [phone] Cindi Jenkins HVAC RESIDENTIAL SERVICE TECHNICIAN Unavailable [phone] Lisa Ramirez MULTIMEDIA PRODUCTION ASSISTANT Unavailable Unavailable Encounter Details Date Type Department Care Team (Late st Contact Info) Description 11/14/2023 [facility] [address] [place] [address] Shaikh Denis MD [address] [place] [address] Social History Tobacco Use Types Packs/Day Years [...] week 08/30/2023 How often do you attend jehovah's witness or muslim serv ices? Patient declined 08/30/2023 Do you [...] Recorded Patient Health Questionnaire-2 Score 0 11/07/2023 [facility] - [...] a fci (including now)? Patient refused 08/30/2023 Comments Unknown Sex and Gender Information Value Date Recorded Sex Assigned at Not on file Legal Sex Female 6:35 PM EDT Gender Identity Not on file Sexual Orientation Not on file documented as of this encounter Plan of Treatment Upcoming Encounters Date Type Department Care Team (Late st Contact Info) Description 02/18/2025 11:30 AM EDT Office Visit [facility] 112 [facility] 110 [place] [address] Renny Hansen MD 112 [facility] 110 [place] [address] documented as of this encounter Procedures Procedure Name Priority Date/Time Associated Diagnosis Comments XR LUMBAR SPINE 2 OR 3V Routine 10/11/2023 10:43 AM EST documented in this encounter Results * XR LUMBAR SPINE 2 OR 3V (10/11/2023 10:43 AM EST) Anatomical Region Laterality Modality Radiographic Jayashree ging us Shaikh Cira CUBA IMG XR PROCEDURES Final Result documented in this encounter Visit Diagnoses Not on filedocumented in this encounter Additional Health Concerns Assessment Noted Time PHQ-9 Depression Total Score: 1 09/06/20 23 2:00 PM EST documented as of this encounter Care Teams Financial Services Assistant Relationship Specialty Start Date End Date Shaikh Denis MD [address] [place] [address] PCP - General Internal Medicine 10/17/23 05/16/24 Renny Hansen MD [address] [facility] 110 [place] [address] PCP - General Internal Medicine 09/19/24 Renny Hansen MD 112 [facility] 110 [place] [address] PCP - Medical [facility] 09/12/2409/11 Jazmín Calvillo NP [address] [place] [address] Nurse Practitioner Family Medicine 05/17/24 09/18/24 Cindi Jenkins LSW Sales Order Specialist Family Medicine 11/06/24 12/05/24 Lisa Ramirez LPN 12/05/24 documented as of this encounter
--- OUTSIDE RECORDS SUMMARY | 2025-02-11 10:37 | XMS_ITS | Encounter Summary ---
Author Organization [facility] Address [address] [place] [address] Care Team Providers Care Forming Machine Operator Name Role Phone Shaikh BEREKET Denis Primary Care Provider [phone] Jazmín Calvillo CARDIOVASCULAR DISEASE SPECIALIST Unavailable [phone] Renny Hansen MD Primary Care Provider [phone] Renny Hansen MD Unavailable [phone] Cindi Jenkins REGISTERED NURSE FIRST ASSISTANT Unavailable [phone] Lisa Ramirez LPN Unavailable Unavailable Encounter Details Date Type Department Care Team (Late st Contact Info) Description 11/10/2023 Orders Only [facility] [address] [place] [address] Shaikh Denis MD [address] [place] [address] Social History Tobacco Use Types Packs/Day Years [...] week 08/30/2023 How often do you attend rastafarian or confucianist serv ices? Patient declined 08/30/2023 Do you belong to any clubs o r organizations such as rastafarian groups, unions, fraternal or athletic groups, or [...] Recorded Patient Health Questionnaire-2 Score 0 11/07/2023 [facility] - [...] place to sleep or slept in a chcf (including now)? Patient refused 08/30/2023 Comments Unknown Sex and Gender Information Value Date Recorded Sex Assigned at Not on file Legal Sex Female 6:35 PM EDT Gender Identity Not on file Sexual Orientation Not on file documented as of this encounter Plan of Treatment Upcoming Encounters Date Type Department Care Team (Late st Contact Info) Description 02/18/2025 11:30 AM EDT Office Visit [facility] 112 [facility] 110 [place] [address] Renny Hansen MD 112 [facility] 110 [place] [address] documented as of this encounter Visit Diagnoses Not on filedocumented in this encounter Additional Health Concerns Assessment Noted Time PHQ-9 Depression Total Score: 1 09/06/20 23 2:00 PM EST documented as of this encounter Care Teams Forming Machine Operator Relationship Specialty Start Date End Date Shaikh Denis MD [address] [place] [address] PCP - General Internal Medicine 10/17/23 05/16/24 Renny Hansen MD [address] [facility] 110 [place] [address] PCP - General Internal Medicine 09/19/24 Renny Hansen MD [address] [facility] 110 [place] [address] PCP - Medical [facility] 09/12/2409/11 Jazmín Calvillo NP [address] [facility] [place] [address] Nurse Practitioner Family Medicine 05/17/24 09/18/24 Cindi Jenkins LSW Coroner Technician Family Medicine 11/06/24 12/05/24 Lisa Ramirez LPN 12/05/24 documented as of this encounter
--- OUTSIDE RECORDS SUMMARY | 2025-02-11 10:38 | XMS_ITS | Encounter Summary ---
Author Organization [facility] Address [address] [place] [address] Care Team Providers Care Delivery Recruiter Name Role Phone Jazmín Calvillo ROUGHING MILL OPERATOR Unavailable [phone] Renny Hansen MD Primary Care Provider [phone] Renny Hansen MD Unavailable [phone] Cindi Jenkins PROJECT ASST Unavailable [phone] Lisa Ramirez ROUNDER HAND Unavailable Unavailable Encounter Details Date Type Department Care Team (Late st Contact Info) Description 08/08/2024 Clinisync Result Encounter [facility] External Department Unsolicited Renny Hansen MD 112 [facility] 110 [place] [address] Social History Tobacco Use Types Packs/Day Years [...] week 08/30/2023 How often do you attend buddhist or buddhist serv ices? Patient declined 08/30/2023 Do you belong to any clubs o r organizations such as buddhist groups, unions, fraUniversal Biosensors or athletic groups, or school groups? Yes [...] Recorded Patient Health Questionnaire-2 Score 0 05/31/2024 [facility] - [facility]ational Stress Questionnaire Answer [...] AM EDT Office Visit [facility] 112 [facility] 110 [place] [address] Renny Hansen MD 112 [facility] 110 [place] [address] documented as of this encounter Procedures Procedure Name Priority Date/Time Associated Diagnosis Comments FL UPPER GI W AIR* 08/08/2024 6: 31 AM EST documented in this encounter Results * FL UPPER GI W AIR* (08/08/2024 6:31 AM EST) Anatomical Region Laterality Modality Radiographic Jayashree ging 08/08/2024 6:31 AM EST Narrative 08/08/2024 6:33 AM EST The [address] [address] Fluoroscopy Report Signed Patient: BREANN HERRMANN MR#: [id number] : 1945 Acct:[id number] Age/Sex: 78 / F ADM Date: 08/07/24 Loc: [place] Attending Dr: RENNY HANSEN Ordering Physician: RENNY HANSEN Date of Service: 08/07/24 Procedure(s): FL upper GI w air Accession Number(s): [id number] cc: RENNY HANSEN [place] [address] Patient Name: BREANN HERRMANN MRN: [id number] date: 1945 Sex: F Assigned Patient Location: [place] Current Patient Location: Accession/Order Number: [id number] Exam Date: 08/07/2024 08:45 Report Date: 08/08/2024 06:31 At the request of: RENNY HANSEN Procedure: FL upper GI w air PROCEDURE: FL upper GI w air, FL cineradiography COMPARISON: None. HISTORY: Nausea , dry heaving for several weeks TECHNIQUE: An air contrast upper gastrointestinal series was performed in the usual manner. Standard level fluoroscopic mode of operation utilized. FINDINGS: ESOPHAGUS:Frequent episodes of moderate gastroesophageal reflux. No esophageal stricture or abnormal dilation. Slightly decreased peristalsis. STOMACH: No obstruction, mass, or ulceration. Normal motility. DUODENUM:No ulceration or diverticulum. OTHER: Negative. FL/FL upper GI w air IMPRESSION: 1. Moderate gastroesophageal reflux. Electronically authenticated by: WIL DELGADO Date: 08/08/2024 06:31 Dictated By: Wil Delgado M.D. Signed By: 08/08/24632 DD/ 0 TD/TT: Salesforce Administrator: Procedure Note Radiology, Radiologist, MD - 08/08/2024 [place] [address] Fluoroscopy Report Signed Patient: BREANN HERRMANN TMR#: [id number] : 8Acct:[id number] Age/Sex: 78 / FADM Date: 08/07/24 Loc: [place] Attending Dr: RENNY HANSEN Ordering Physician: RENNY HANSEN Date of Service: 08/07/24 Procedure(s): FL upper GI w air Accession Number(s): [id number] cc: RENNY HANSEN [place] [address] [place] [id number] Patient Name: BREANN HERRMANN MRN: [id number] date: 1945 Sex: F Assigned Patient Location: [place] Current Patient Location: Accession/Order Number: [id number] Exam Date: 08/07/2024 08:45 Report Date: 08/08/2024 06:31 At the request of: RENNY HANSEN Procedure: FL upper GI w air PROCEDURE: FL upper GI w air, FL cineradiography COMPARISON: None. HISTORY: Nausea , dry heaving for several weeks TECHNIQUE: An air contrast upper gastrointestinal series was performed inthe usual manner. Standard level fluoroscopic mode of operation utilized. FINDINGS: ESOPHAGUS:Frequent episodes of moderate gastroesophageal reflux. Noesophageal stricture or abnormal dilation. Slightly decreased peristalsis. STOMACH: No obstruction, mass, or ulceration. Normal motility. DUODENUM:No ulceration or diverticulum. OTHER: Negative. FL/FL upper GI w air IMPRESSION: 1. Moderate gastroesophageal reflux. Electronically authenticated by: WIL DELGADO Date: 08/08/2024 06:31 Dictated By: Wil Delgado M.D. Signed By:08/08/24632 DD/ 0 TD/TT: Salesforce Administrator: Renny Hansen MD IMG XR PROCEDURES Final Result documented in this encounter Visit Diagnoses Not on filedocumented in this encounter Additional Health Concerns Assessment Noted Time PHQ-9 Depression Total Score: 1 09/06/20 23 2:00 PM EST documented as of this encounter Care Teams Delivery Recruiter Relationship Specialty Start Date End Date Renny Hansen MD 112 [place] [facility] 110 [place] [address] PCP - General Internal Medicine 09/19/24 Renny Hansen MD [address] [facility] 110 [place] [address] PCP - Medical [place] 09/12/2409/11 Jazmín Calvillo NP Nurse Practitioner Family Medicine 05/17/24 09/18/24 Cindi Jenkins LSW Forest Fire Fighters Dispatcher Family Medicine 11/06/24 12/05/24 Lisa Ramirez LPN 12/05/24 documented as of this encounter
--- OUTSIDE RECORDS SUMMARY | 2025-02-11 10:38 | XMS_ITS | Encounter Summary ---
Author Organization [facility] Address [address] [place] [address] Care Team Providers Care Classification And Treatment Director Name Role Phone Jazmín Calvillo NP Unavailable [phone] Renny Hansen MD Primary Care Provider [phone] Renny Hansen MD Unavailable [phone] Cindi Jenkins FAN BLADE ALIGNER Unavailable [phone] Lisa Ramirez LPN Unavailable Unavailable Encounter Details Date Type Department Care Team (Late st Contact Info) Description 06/28/2024 Clinisync Result Encounter [facility] External Department Unsolicited [...] week 08/30/2023 How often do you attend bahai or episcopalian serv ices? Patient declined 08/30/2023 Do you belong to any clubs o r organizations such as bahai groups, unions, fraternal [...] Recorded Patient Health Questionnaire-2 Score 0 05/31/2024 [facility] Health - Occupational [...] place to sleep or slept in a mcfp (including now)? Patient refused 08/30/2023 Comments Unknown Sex and Gender Information Value Date Recorded Sex Assigned at Not on file Legal Sex Female 6:35 PM EDT Gender Identity Not on file Sexual Orientation Not on file documented as of this encounter Plan of Treatment Upcoming Encounters Date Type Department Care Team (Late st Contact Info) Description 02/18/2025 11:30 AM EDT Office Visit [facility] 112 [facility] 110 [place] [address] Renny Hansen MD 112 [facility] 110 [place] [address] documented as of this encounter Procedures Procedure Name Priority Date/Time Associated Diagnosis Comments CT CERVICAL SPINE W IV CONTRAST 06/28/2024 8:43 AM EDT documented in this encounter Results * CT cervical spine w IV contrast (06/28/2024 8:43 AM EDT) Anatomical Region Laterality Modality Spine, C-spine Computed Tomogra phy 06/28/2024 8:43 AM EDT Narrative 06/28/2024 8:45 AM EDT The [address] [address] [address] Scan Report Signed Patient: BREANN STARKS MR#: [id number] : 1945 Acct:[id number] Age/Sex: 78 / F ADM Date: 06/26/24 Loc: CT Attending Dr: VangieStaff Physician [place] Ordering Physician: Channing Devlin M.D. Date of Service: 06/26/24 Procedure(s): CT cervical spine w con Accession Number(s): [id number] cc: RENNY HANSEN [place] [address] Patient Name: BREANN STARKS MRN: [facility]:[id number] date: 1945 Sex: F Assigned Patient Location: CT Current Patient Location: Accession/Order Number: [id number] Exam Date: 06/26/2024 14:58 Report Date: 06/28/2024 08:43 At the request of: NON-STAFF PHYSICIAN Procedure: CT cervical spine w con PROCEDURE: CT cervical spine w con COMPARISON: None. HISTORY: Cervical Disc Disorder At C5-C6 TECHNIQUE: Dose reduction techniques were achieved by using automated exposure control and/or adjustment of mA and/or kV according to patient size and/or use of iterative reconstruction technique. FINDINGS: Limited exam due to patient body habitus and poor cdbrde-uc-rrnsa ratio BONES: Reversal of normal cervical lordosis. No acute fracture or spondylolisthesis. Moderate to severe diffuse degenerative spondylosis and facet osteoarthropathy PARASPINAL AREA: Normal with no visible mass. CERVICAL DISC LEVELS: C2-C3: Moderate disc space narrowing. No disc bulge or herniation. No central or foraminal stenosis C3-C4: Disc collapse. Mild spondylosis. No central or foraminal stenosis C4-C5: Disc collapse with endplate sclerosis. Moderate spondylosis. No central or foraminal stenosis C5-C6: Disc collapse with endplate sclerosis. Moderate spondylosis. No central or foraminal stenosis C6-C7: Disc collapse with endplate sclerosis. No central or foraminal stenosis C7-T 1: Disc collapse with endplate sclerosis. Mild disc/osteophyte complex. No central or foraminal stenosis CT/CT cervical spine w con IMPRESSION: Moderate to severe diffuse degenerative changes with no definite central or foraminal stenosis Electronically authenticated by: HONG ALSTON Date: 06/28/2024 08:43 Dictated By: Hong Alston M.D. Signed By: 06/28/24 0845 DD/ TD/TT: Mapping Specialist: Procedure Note Radiology, Radiologist, - 06/28/[address] [place] [id number] Scan Report Signed Patient: BREANN STARKS TMR#: [id number] : 8Acct:[id number] Age/Sex: 78 / FADM Date: 06/26/24 Loc: CT Attending Dr: Non-Staff Physician [place] Ordering Physician: Channing Devlin M.D. Date of Service: 06/26/24 Procedure(s): CT cervical spine w con Accession Number(s): [id number] cc: RENNY HANSEN [place] [address] Patient Name: BREANN STARKS MRN: [id number] date: 1945 Sex: F Assigned Patient Location: CT Current Patient Location: Accession/Order Number: [id number] Exam Date: 06/26/2024 14:58 Report Date: 06/28/2024 08:43 At the request of: NON-STAFF PHYSICIAN Procedure: CT cervical spine w con PROCEDURE: CT cervical spine w con COMPARISON: None. HISTORY: Cervical Disc Disorder At C5-C6 TECHNIQUE: Dose reduction techniques were achieved by using automatedexposure control and/or adjustment of mA and/or kV according to patient size and/oruse of iterative reconstruction technique. FINDINGS: Limited exam due to patient body habitus and poor twnnmq-va-mijan ratio BONES: Reversal of normal cervical lordosis. No acute fracture or spondylolisthesis. Moderate to severe diffuse degenerative spondylosis and facet osteoarthropathy PARASPINAL AREA: Normal with no visible mass. CERVICAL DISC LEVELS: C2-C3: Moderate disc space narrowing. No disc bulge or herniation. Nocentral or foraminal stenosis C3-C4: Disc collapse. Mild spondylosis. No central or foraminal stenosis C4-C5: Disc collapse with endplate sclerosis. Moderate spondylosis. Nocentral or foraminal stenosis C5-C6: Disc collapse with endplate sclerosis. Moderate spondylosis. Nocentral or foraminal stenosis C6-C7: Disc collapse with endplate sclerosis. No central or foraminalstenosis C7-T 1: Disc collapse with endplate sclerosis. Mild disc/osteophytecomplex. No central or foraminal stenosis CT/CT cervical spine w con IMPRESSION: Moderate to severe diffuse degenerative changes with no definite centralor foraminal stenosis Electronically authenticated by: HONG ALSTON Date: 06/28/2024 08:43 Dictated By: Hong Alston M.D. Signed By:06/28/2445 DD/ 2 TD/TT: Mapping Specialist: us Generic External Data Provider IMG CT PROCEDURES Final Result documented in this encounter Visit Diagnoses Not on filedocumented in this encounter Additional Health Concerns Assessment Noted Time PHQ-9 Depression Total Score: 1 09/06/20 23 2:00 PM EST documented as of this encounter Care Teams Classification And Treatment Director Relationship Specialty Start Date End Date Renny Hansen MD [address] [facility] 110 [place] [address] PCP - General Internal Medicine 09/19/24 Renny Hansen MD [address] [facility] 110 [place] [address] PCP - Medical [facility] 09/12/2409/11 Jazmín Calvillo NP Nurse Practitioner Family Medicine 05/17/24 09/18/24 Cindi Jenkins LSW Money Market Clerk Family Medicine 11/06/24 12/05/24 Lisa Ramirez LPN 12/05/24 documented as of this encounter
--- OUTSIDE RECORDS SUMMARY | 2025-02-11 10:38 | XMS_ITS | Encounter Summary ---
Author Organization [facility] Address [address] [place] [address] Care Team Providers Care Blow Torch Operator Name Role Phone Jazmín Calvillo CHIEF SALES OFFICER Unavailable Renny Hansen MD Primary Care Provider [phone] Renny Hansen MD Unavailable [phone] Cindi Jenkins TRANSPORTATION TECHNICIAN Unavailable [phone] Lisa Ramirez POWER ORIGINATOR Unavailable Unavailable Encounter Details Date Type Department Care Team (Late st Contact Info) Description 08/08/2024 Clinisync Result Encounter [facility] External Department Unsolicited Renny Hansen MD 112 [facility] 110 [place] [address] Social History Tobacco Use Types Packs/Day Years [...] week 08/30/2023 How often do you attend restoration or religion serv ices? Patient declined 08/30/2023 Do you belong to any clubs o r organizations such as restoration groups, unions, fra[employer], [employer] or athletic groups, or school groups? Yes [...] Recorded Patient Health Questionnaire-2 Score 0 05/31/2024 [facility] - Occupational Stress Questionnaire Answer [...] place to sleep or slept in a [place] health care facility (including now)? Patient refused 08/30/2023 Comments Unknown [...] AM EDT Office Visit [facility] 112 [facility] 110 [place] [address] Renny Hansen MD 112 [facility] 110 [place] [address] documented as of this encounter Procedures Procedure Name Priority Date/Time Associated Diagnosis Comments XR CINERADIOGRAPHY 08/08/2024 6: 31 AM EST documented in this encounter Results * XR CINERADIOGRAPHY (08/08/2024 6:31 AM EST) Anatomical Region Laterality Modality Other 08/08/2024 6:31 AM EST Narrative 08/08/2024 6:33 AM EST The [address] [address] Fluoroscopy Report Signed Patient: BREANN HERRMANN MR#: [id number] : 1945 Acct:[id number] Age/Sex: 78 / F ADM Date: 08/07/24 Loc: [place] Attending Dr: RENNY HANSEN Ordering Physician: RENNY HANSEN Date of Service: 08/07/24 Procedure(s): FL cineradiography Accession Number(s): [id number] cc: RENNY HANSEN The [place] [address] Patient Name: BREANN HERRMANN MRN: [facility]:[id number] date: 1945 Sex: F Assigned Patient Location: [place] Current Patient Location: Accession/Order Number: [id number] Exam Date: 08/07/2024 08:45 Report Date: 08/08/2024 06:31 At the request of: RENNY HANSEN Procedure: FL cineradiography PROCEDURE: FL upper GI w air, FL [...] DUODENUM:No ulceration or diverticulum. OTHER: Negative. FL/FL cineradiography IMPRESSION: 1. Moderate gastroesophageal reflux. Electronically authenticated by: WIL DELGADO Date: 08/08/2024 06:31 Dictated By: Wil Delgado M.D. Signed By: 08/08/24632 DD/ 0 TD/TT: Curriculum Development Manager: Procedure Note Radiology, Radiologist, MD - 08/08/2024 [place] [address] Fluoroscopy Report Signed Patient: BREANN HERRMANN TMR#: [id number] : 8Acct:[id number] Age/Sex: 78 / FADM Date: 08/07/24 Loc: [place] Attending Dr: RENNY HANSEN Ordering Physician: RENNY HANSEN Date of Service: 08/07/24 Procedure(s): FL cineradiography Accession Number(s): [id number] cc: RENNY HANSEN [place] [id number] Patient Name: BREANN HERRMANN MRN: [facility]:[id number] date: 1945 Sex: F Assigned Patient Location: [place] Current Patient Location: Accession/Order Number: [id number] Exam Date: 08/07/2024 08:45 Report Date: 08/08/2024 06:31 At the request of: RENNY HANSEN Procedure: FL cineradiography PROCEDURE: FL upper GI w air, FL [...] DUODENUM:No ulceration or diverticulum. OTHER: Negative. FL/FL cineradiography IMPRESSION: 1. Moderate gastroesophageal reflux. Electronically authenticated by: WIL DELGADO Date: 08/08/2024 06:31 Dictated By: Wil Delgado M.D. Signed By:08/08/24632 DD/ 0 TD/TT: Curriculum Development Manager: Renny Hansen MD [facility] Final Result documented in this encounter Visit Diagnoses Not on filedocumented in this encounter Additional Health Concerns Assessment Noted Time PHQ-9 Depression Total Score: 1 09/06/20 23 2:00 PM EST documented as of this encounter Care Teams Blow Torch Operator Relationship Specialty Start Date End Date Renny Hansen MD [address] [facility] 110 [place] [address] PCP - General Internal Medicine 09/19/24 Renny Hansen MD [address] [facility] 110 [place] [address] PCP - Medical [place] 09/12/2409/11 Jazmín Calvillo NP Nurse Practitioner Family Medicine 05/17/24 09/18/24 Cindi Jenkins LSW Falsework Builder Family Medicine 11/06/24 12/05/24 Lisa Raimrez LPN 12/05/24 documented as of this encounter
--- OUTSIDE RECORDS SUMMARY | 2025-02-11 10:38 | XMS_ITS | Encounter Summary ---
Author Organization [facility] Address [address] [place] [address] Care Team Providers Care Varsity Baseball Coach Name Role Phone Jazmín Calvillo NP Unavailable Renny Hansen MD Primary Care Provider [phone] Renny Hansen MD Unavailable [phone] Cindi Jenkins SUPERVISOR SPEECH Unavailable [phone] Lisa Ramirez LPN Unavailable Unavailable Encounter [...] week 08/30/2023 How often do you attend confucianist or yarsanism serv ices? Patient declined 08/30/2023 Do you belong to any clubs o r organizations such as confucianist groups, unions, fraternal or athletic groups, or [...] place to sleep or slept in a long term (including now)? Patient refused 08/30/2023 Comments Unknown Sex and Gender Information Value Date Recorded Sex Assigned at Not on file Legal Sex Female 6:35 PM EDT Gender Identity Not on file Sexual Orientation Not on file documented as of this encounter Plan of Treatment Upcoming Encounters Date Type Department Care Team (Late st Contact Info) Description 02/18/2025 11:30 AM EDT Office Visit [facility] [address] [facility] 110 [place] [address] Renny Hansne MD 112 [facility] 110 [place] [address] documented as of this encounter Procedures Procedure Name Priority Date/Time Associated Diagnosis Comments CT SHOULDER LEFT W IV CONTRAST 06/28/2024 8:42 AM EDT documented in this encounter Results * CT shoulder left w IV contrast (06/28/2024 8:42 AM EDT) Anatomical Region Laterality Modality Upper Extremities, Shoulder Left Comp uted Tomography 06/28/2024 8:42 AM EDT Narrative 06/28/2024 8:45 AM EDT The [address] [address] [address] Scan Report Signed Patient: BREANN STARKS MR#: [id number] : 1945 Acct:[id number] Age/Sex: 78 / F ADM Date: 06/26/24 Loc: CT Attending Dr: Channing Devlin M.D. Ordering Physician: Channing Devlin M.D. Date of Service: 06/26/24 Procedure(s): CT Shoulder LT w/ Con Accession Number(s): [id number] cc: HANSENRENNY [place] [id number] Patient Name: BREANN STARKS MRN: [facility]:[id number] date: 1945 Sex: F Assigned Patient Location: CT Current Patient Location: Accession/Order Number: [id number] Exam Date: 06/26/2024 14:58 Report Date: 06/28/2024 08:42 At the request of: NON-STAFF PHYSICIAN Procedure: CT Shoulder LT w/ Con Exam Type: CT LEFT SHOULDER Exam Date and Time: 06/26/2024 2:58 PM EDT Indication: 78 years old Female with pain Comparison: Radiographs 02/21/2024 TECHNIQUE: Axial CT images of the left shoulder were obtained with intravenous contrast. Coronal and sagittal reformatted images were obtained. 3-D surface rendering was performed. Dose reduction techniques were achieved by using automated exposure control and/or adjustment of mA and/or kV according to patient size and/or use of iterative reconstruction technique. 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 The AC joint is congruent. 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 The hardware appears intact and appropriately positioned. Small joint effusion is present. No bony erosive or surgical changes identified to suggest infection. Multiple enlarged left axillary lymph nodes are present, the largest measures approximately 1.5 cm in short axis. This is of uncertain etiology. Limited evaluation of the left hemithorax is without acute or suspicious abnormality. CT/CT Shoulder LT w/ Con IMPRESSION: 1. Postsurgical changes without acute osseous abnormality. 2. Left axillary lymphadenopathy of uncertain etiology. Consider dedicated ultrasound and possible correlation with mammography as well. Electronically authenticated by: ROB JURADO Date: 06/28/2024 08:42 Dictated By: Rob Jurado M.D. Signed By: 06/28/2445 DD/ 1 TD/TT: Hot Roll Inspector: Procedure Note Radiology, Radiologist, MD - 10/17/[address] [place] [id number] Scan Report Signed Patient: BREANN STARKS TMR#: [id number] : 8Acct:[id number] Age/Sex: 78 / FADM Date: 06/26/24 Loc: CT Attending Dr: Non-Staff Physician Magui Ordering Physician: Channing Devlin M.D. Date of Service: 06/26/24 Procedure(s): CT Shoulder LT w/ Con Accession Number(s): [id number] cc: RENNY HANSEN The [place] [id number] Patient Name: BREANN STARKS MRN: [id number] date: 1945 Sex: F Assigned Patient Location: CT Current Patient Location: Accession/Order Number: [id number] Exam Date: 06/26/2024 14:58 Report Date: 06/28/2024 08:42 At the request of: NON-STAFF PHYSICIAN Procedure: CT Shoulder LT w/ Con Exam Type: CT LEFT SHOULDER Exam Date and Time: 06/26/2024 2:58 PM EDT Indication: 78 years old Female with pain Comparison: Radiographs 02/21/2024 TECHNIQUE: Axial CT images of the left shoulder were obtained withintravenous contrast. Coronal and sagittal reformatted images were obtained. 3-Dsurface rendering was performed. Dose reduction techniques were achieved by using automated exposurecontrol and/or adjustment of mA and/or kV according to patient size and/or use of iterative reconstruction technique. 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 The AC joint is congruent. 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 The hardware appears intact and appropriately positioned. Small joint effusion is present. No bony erosive or surgical changes identified to suggest infection. Multiple enlarged left axillarylymph nodes are present, the largest measures approximately 1.5 cm in shortaxis. This is of uncertain etiology. Limited evaluation of the left hemithorax is without acute or suspicious abnormality. CT/CT Shoulder LT w/ Con IMPRESSION: 1. Postsurgical changes without acute osseous abnormality. 2. Left axillary lymphadenopathy of uncertain etiology. Consider dedicated ultrasound and possible correlation with mammography as well. Electronically authenticated by: ROB JURADO Date: 06/28/2024 08:42 Dictated By: Rob Jurado M.D. Signed By:06/28/2445 DD/ TD/TT: Hot Roll Inspector: us Generic External Data Provider IMG CT PROCEDURES Final Result documented in this encounter Visit Diagnoses Not on filedocumented in this encounter Additional Health Concerns Assessment Noted Time PHQ-9 Depression Total Score: 1 09/06/20 23 2:00 PM EST documented as of this encounter Care Teams Varsity Baseball Coach Relationship Specialty Start Date End Date Renny Hansen MD [address] [facility] 110 [place] [address] PCP - General Internal Medicine 09/19/24 Renny Hansen MD [address] [facility] 110 [place] [address] PCP - Medical [place] 09/12/2409/11 Jazmín Calvillo NP Nurse Practitioner Family Medicine 05/17/24 09/18/24 Cindi Jenkins LSW Housing Project Manager Family Medicine 11/06/24 12/05/24 Lisa Ramirez LPN 12/05/24 documented as of this encounter
--- OUTSIDE RECORDS SUMMARY | 2025-02-11 10:38 | XMS_ITS | Encounter Summary ---
Author Organization [facility] Address [address] [place] [address] Care Team Providers Care Brazing Machine Feeder Name Role Phone Jazmín Calvillo GLYCERIN SUPERVISOR Unavailable [phone] Renny Hansen MD Primary Care Provider [phone] Renny Hansen MD Unavailable [phone] Cindi Jenkins DIESEL DINKEY OPERATOR Unavailable [phone] Lisa Ramirez PLUMBING AND HEATING MECHANIC Unavailable Unavailable Encounter Details Date Type Department Care Team (Late st Contact Info) Description 07/25/2024 [facility] [address] [place] [address] Wesley Long MD [address] [place] [address] Social History Tobacco Use Types Packs/Day Years [...] week 08/30/2023 How often do you attend cheondoism or adventism serv ices? Patient declined 08/30/2023 Do you [...] Recorded Patient Health Questionnaire-2 Score 0 05/31/2024 [facility] - Occupational [...] place to sleep or slept in a fdc (including now)? Patient refused 08/30/2023 Comments Unknown [...] EDT Office Visit [facility] [address] [facility] 110 [place] [address] Renny Hansen MD [address] [facility] 110 [place] [address] documented as of this encounter Visit Diagnoses Not on filedocumented in this encounter Additional Health Concerns Assessment Noted Time PHQ-9 Depression Total Score: 1 09/06/20 23 2:00 PM EST documented as of this encounter Care Teams Brazing Machine Feeder Relationship Specialty Start Date End Date Renny Hansen MD [address] [facility] 110 [place] [address] PCP - General Internal Medicine 09/19/24 Renny Hansen MD [address] [address] PCP - Medical [place] 09/12/2409/11 Jazmín Calvillo NP Nurse Practitioner Family Medicine 05/17/24 09/18/24 Cindi Jenkins LSW Infectious Waste Technician Family Medicine 11/06/24 12/05/24 Lisa Ramirez LPN 12/05/24 documented as of this encounter
--- OUTSIDE RECORDS SUMMARY | 2025-02-11 10:38 | XMS_ITS | Encounter Summary ---
Author Organization [facility] Address [address] [place] [address] Care Team Providers Care Computing Machine Operator Name Role Phone Paulette Johnson MD Primary Care Provider [phone] Shaikh BEREKET Denis Primary Care Provider [phone] Renny Hansen MD Primary Care Provider [phone] Balta Cardenas MD Unavailable [phone] Encounter Details Date Type Department Care Team (Late st Contact Info) Description 04/28/2022 Orders Only [facility] Family Medicine [address] [place] [address] Roopa Mensah MA Social History Tobacco Use Types Packs/Day Years Used Date Smoking Tobacco: Former Cigarettes Smokeless Tobacco: Never Alcohol Use Standard Drinks/Week Comments Yes 0 (1 standard drink = 0.6 oz pur e alcohol) OCCASIONAL Sex and Gender Information Value Date Recorded Sex Assigned at Not on file Gender Identity Not on file Sexual Orientation Not on file documented as of this encounter Plan of Treatment Upcoming Encounters Date Type Department Care Team (Late st Contact Info) Description 02/20/2025 11:00 AM EDT Follow-Up [facility] Infectious Disease [address] [place] [address] Ortega Hines MD [address] [facility]/Infectious [place] [address] documented as of this encounter Visit Diagnoses Not on filedocumented in this encounter Care Teams Computing Machine Operator Relationship Specialty Start Date End Date Paulette Johnson MD [address] PCP - General 05/03/22 07/04/23 Shaikh Denis MD [address] [place] [address] PCP - General Family Medicine 07/05/23 07/17/24 Renny Hansen MD 112 [facility] 110 [place] [address] PCP - General Internal Medicine 07/18/24 Balta Cardenas MD [address] [facility] [place] [address] Referring Physician 11/15/24 documented as of this encounter
--- OUTSIDE RECORDS SUMMARY | 2025-02-11 10:38 | XMS_ITS | Encounter Summary ---
Author Organization [facility] Address [address] [facility] [place] [address] Care Team Providers Care Melter Caster Name Role Phone Jazmín Calvillo CONTENT CURATOR Unavailable [phone] Renny Hansen MD Primary Care Provider [phone] Renny Hansen MD Unavailable [phone] Cindi Jenkins CLINICAL REHAB LIAISON Unavailable [phone] Lisa Ramirez EXHAUST EMISSIONS INSPECTOR Unavailable Unavailable Encounter Details Date Type Department Care Team (Late st Contact Info) Description 07/09/2024 Abstract [facility] [address] [facility] [address] [place] [address] Unallocated, Noms Provider, [address] [place], [place] [address] Social History Tobacco Use Types Packs/Day Years [...] week 08/30/2023 How often do you attend orthodoxy or jainism serv ices? Patient declined 08/30/2023 Do you belong to any clubs o r organizations such as orthodoxy groups, unions, fraInnovate[employer] or athletic groups, or school groups? Yes [...] Recorded Patient Health Questionnaire-2 Score 0 05/31/2024 [facility]at ional [facility] - Occupational Stress Questionnaire Answer Date [...] place to sleep or slept in a snf (including now)? Patient refused 08/30/2023 Comments Unknown [...] [facility] [address] [facility] 110 [place] [address] Renny Hansen MD [address] [facility] 110 [place] [address] documented as of this encounter Visit Diagnoses Not on filedocumented in this encounter Additional Health Concerns Assessment Noted Time PHQ-9 Depression Total Score: 1 09/06/20 23 2:00 PM EST documented as of this encounter Care Teams Melter Caster Relationship Specialty Start Date End Date Renny Hansen MD [address] [facility] 110 [place] [address] PCP - General Internal Medicine 09/19/24 Renny Hansen MD [address] [facility] 110 [place] [address] PCP - Medical [place] 09/12/2409/11 Jazmín Calvillo NP Nurse Practitioner Family Medicine 05/17/24 09/18/24 Cindi Jenkins LSW Mason Foreman/Superintendant Family Medicine 11/06/24 12/05/24 Lisa Ramirez LPN 12/05/24 documented as of this encounter
--- OUTSIDE RECORDS SUMMARY | 2025-02-11 10:38 | XMS_ITS | Encounter Summary ---
Author Organization [facility] Address [address] [place] [address] Care Team Providers Care E Commerce Analyst Name Role Phone Renny Hansen MD Primary Care Provider [phone] Balta Cardenas MD Unavailable [phone] Encounter Details Date Type Department Care Team (Late st Contact Info) Description 01/07/[address] [facility] Infectious Disease [address] [place] [address] Rosemarie Mistry MA Social History Tobacco Use Types Packs/Day Years Used Date Smoking Tobacco: Former Cigarettes 7 - 1999 Smokeless Tobacco: Never Alcohol Use [...] - [place] Infectious Disease [address] [place] [address] Ortega Hines MD [address] [facility]/[place] [address] documented as of this encounter Visit Diagnoses Not on filedocumented in this encounter Care Teams E Commerce Analyst Relationship Specialty Start Date End Date Renny Hansen MD 112 [facility] 110 [place] [address] PCP - General Internal Medicine 07/18/24 Balta Cardenas MD [address] [place] [address] Referring Physician 11/15/24 documented as of this encounter
--- OUTSIDE RECORDS SUMMARY | 2025-02-11 10:38 | XMS_ITS | Clinical Summary ---
Author Organization [facility] Address [id number] [address] [place] [address] Care Team Providers Care Information Clerk Brokerage Name Role Phone Unavailable Primary Care Provider Unavailabl e Social History Tobacco Use Types Packs/Day Years Used Date Smoking Tobacco: Never Assessed Childcare Answer Date Recorded Childcare Unknown 02/21/2019 Employment Answer Date Recorded Employment Unknown 02/21/2019 Purpose - Life Answer Date Recorded Purpose and direction in life Unknown Comments Unknown Sex and Gender Information Value Date Recorded Sex Assigned at Not on file Legal Sex Female 11:41 AM EDT Gender Identity Not on file Sexual Orientation Not on file Plan of Treatment Not on file Medical Devices Not on file Insurance MEDICARE [facility]
--- OUTSIDE RECORDS SUMMARY | 2025-02-11 10:38 | XMS_ITS | Encounter Summary ---
Author Organization [facility] Address [address] [place] [address] Care Team Providers Care Invertebrate Paleontologist Name Role Phone Jazmín Calvillo GENERAL MEDICAL PRACTITIONER Unavailable [phone] Renny Hansen MD Primary Care Provider [phone] Renny Hansen MD Unavailable [phone] Cindi Jenkins CABLE TELEVISION PROGRAM DIRECTOR Unavailable [phone] Lisa Ramirez DATABASE CONSULTANT Unavailable Unavailable Encounter Details Date Type Department Care Team (Late st Contact Info) Description 07/05/2024 Abstract [facility] [address] [place] [address] Wesley Long MD [address] [place] [address] Social History Tobacco Use Types Packs/Day Years [...] week 08/30/2023 How often do you attend latter day or baptist serv ices? Patient declined 08/30/2023 Do you [...] Recorded Patient Health Questionnaire-2 Score 0 05/31/2024 [facility] Occupat ional Health - [...] EDT Office Visit [facility] [address] [facility] 110 [place] [address] Renny Hansen MD [address] [facility] 110 [place] [address] documented as of this encounter Visit Diagnoses Not on filedocumented in this encounter Additional Health Concerns Assessment Noted Time PHQ-9 Depression Total Score: 1 09/06/20 23 2:00 PM EST documented as of this encounter Care Teams Invertebrate Paleontologist Relationship Specialty Start Date End Date Renny Hansen MD [address] [facility] 110 [place] [address] PCP - General Internal Medicine 09/19/24 Renny Hansen MD [address] [address] PCP - Medical [place] 09/12/2409/11 Jazmín Calvillo NP Nurse Practitioner Family Medicine 05/17/24 09/18/24 Cindi Jenkins LSW Feather Baler Family Medicine 11/06/24 12/05/24 Lisa Ramirez LPN 12/05/24 documented as of this encounter
--- OUTSIDE RECORDS SUMMARY | 2025-02-11 10:38 | XMS_ITS ---
Author Organization [facility] Address [address] [place] [address] Care Team Providers Care Sander And Buffer Name Role Phone Renny Hansen MD Primary Care Provider [phone] Renny Hansen MD Unavailable [phone] Lisa Ramirez LPN Unavailable Unavailable Chronic Care Management (CCM) Status:Enrolled (Active) Start date:11/06/2024 Enrollment date:11/08/2024 Enrollment reason:Identified as high-risk Case Team Name Relationship Phone Lisa Ramirez LPN(Responsible Staff) Continued Care and Services Coordination
[2025-02-11 11:16] VITALS: BP 140/73; PULSE 60; TEMP 36.2; O2SAT 97
[2025-02-11] MEDS: LIDOCAINE HCL 2% 400 MG/20 ML MDV INJ (11:50)
[2025-02-11] MEDS: IOHEXOL 240 MG/ML - 10 ML VIAL 24 MG INJ (11:50)
[2025-02-11] MEDS: BUPIVACAINE HCL 0.25% PF 25 MG/10 ML VIAL 2 ML INJ (11:50)
[2025-02-11] MEDS: METHYLPREDNISOLONE ACETATE 40 MG/ML VIAL INJ (11:51)
--- NOTE | 2025-02-11 11:51 | W.PM.PROCNOT ---
Date of procedure: 02/11/25 Pre-op diagnosis: Pain due to left sacroiliitis Post-op diagnosis: same as pre-op Procedure: Procedure: Left sacroiliac joint injection Medications: Bupivacaine 0.25% 3cc, depomedrol 40mg After informed consent was obtained, the patient was brought to the medical procedure unit and placed in the prone position, when a timeout was completed verifying correct patient, procedure, site, positioning, implant, and/or special equipment.? The skin overlying the area was prepped and draped in standard sterile fashion using alcohol.? A 25-gauge needle was inserted towards the left sacroiliac joint under direct fluoroscopic imaging.? Needle tip was advanced until the joint was encountered.? We instilled a total of 2 mL of solution.? Postoperatively needles were removed.? The patient tolerated the procedure well without complication.? The patient reported reduction in pain symptoms postoperatively. Anesthesia: Local Surgeon: Miguel Murphy Pathology: none sent Condition: stable Disposition: no change
[2025-02-11 11:52] VITALS: BP 171/79; BP 177/81; PULSE 70; PULSE 88; O2SAT 95; O2SAT 96
== END 2025-02-11 11:56 | disposition home or self-care (01) ==
LOC: SURGOUT 10:34
PROVIDERS: PCP Internal Medicine; Visit Provider Anesthesiology
DX: M53.3 Sacrococcygeal disorders, not elsewhere classified (principal); M46.1 Sacroiliitis, not elsewhere classified
CPT/HCPCS: 27096; J0665; J1010; Q9966

== ENCOUNTER 2025-02-21 14:05 | Outpatient (OUT) | payer MEDICARE, SELFPAY ==
--- OUTSIDE RECORDS SUMMARY | 2024-03-05 09:50 | XMS_ITS ---
Author Organization [facility] Address [address] [place] [address] Care Team Providers Care Student Finance Advisor Name Role Phone SHAIKH DOMINGUEZ Primary Care Provider James Garcia Unavailable [phone] Reason For Referral Reason PRIOR AUTH APPROVED MCE AET[employer]...NOT SCHED...please precert MRI left shoulder with metal reduction study at [facility] LOCATION CHANGE TO [facility] IN [place] Diagnosis 1 Left shoulder pain ( M25.512) Referral Organization [facility] Referring Provider First Name James Referring Provider Last Name Robert Referring Provider Speciality Orthopedic Surgery Referred Organization [facility] maria luisa Referred Provider James Jones Referred Address [place], [place], Referred Provider Specialty Orthopedic S urgery Procedure 1 MRI Joint Upper Ext w/o Dye ([id number]) General Notes Christine Evans 2023 02:42:44 PM >, Sara Aguirre 03/06/2024 03:40:23 PM > AUTH IS PENDING PER BRYNN. CASE WENT TO REVIEW IT SAYS THERE IS A DENIED REQUEST FOR THE SAME PROCEDURE ON FILE. I UPLOADED CLINICALS. CASE #[id number], Christine Evans 03/08/2024 02:56:54 PM >PATIENT LEFT VOICEMAIL STATING SHE RECEIVED AN APPROVAL LETTER IN THE MAIL FROM HER INSURANCE, BUT SHE WOULD ALSO LIKE TO CHANGE THE LOCATION TO [facility] IN [place] Evan María 03/09/2024 08:34:02 AM > PER BRYNN PRIOR AUTH HAS BEEN APPROVED FROM 03/06/2024-09/03/2024 AUTH # [id number], AUTH IN CHART. FACILITY HAS BEEN UPDATED TO [facility]. FAXED TO [facility].Cristina Tricia 03/09/2024 08:50:15 AM > Referral Priority Urgent REASON FOR VISIT LEFT SHOULDER PAIN, Left shoulder pain Medications Medication SIG (Take, Route, Frequency, Duration) Notes Start Date End Date Status TraMADol Hydrochloride 50 mg 1 tab(s) orally every 8 hours for 7 days 03/05/2024 03/12/2024 Active Encounters Encounter Location Date Provider Diagnosis [facility] Office [address] [place] [address] [place] [address] 03/05/2024 James Jones Left shoulder pain M25.512 Assessments Encounter Date Diagnosis (ICD Code) Assessment Notes Treatment Notes Treatment Clinical Notes Section Notes 03/05/2024 Left shoulder pain (ICD-10 - M25.512) Left shoulder pain Painful left total shoulder arthroplasty 03/05/2024 Other I discussion with the patient regarding left total shoulder arthroplasty. She is having quite a bit of pain in laxity motor function. Did discuss treatment options. Do recommend MRI with [facility] to evaluate for potential rupture of deltoid. Left shoulder pain Painful left total shoulder arthroplasty Plan Of Treatment Medication Medication Name Sig Start Date Stop Date Notes TraMADol Hydrochloride 50 mg 1 tab(s) or ally every 8 hours for 7 days 03/05/2024 03/12/2024 Treatment Notes Assessment Notes Other I discussion with e patient regarding left total shoulder arthroplasty. She is having quite a bit of pain in laxity motor function. Did discuss treatment options. Do recommend MRI with [facility] to evaluate for potential rupture of deltoid. Pending Test Test Name Order Date MRI : Shoulder W/O Contrast Left - [id number] 03/05/2024 Referrals Referral Date Details 03/06/2024 03/06/2024, PRIOR [facility] APPROVED [facility] AETNA...NOT SCHED...please precert MRI left shoulder with metal reduction study at [facility] LOCATION CHANGE TO [facility] [place] Next Appt Details Follow Up: after MRI, Reason : Progress Notes * MAXIMUS HERRMANN TDOB:[birth year] (78 yo F)Acc No.[id number]:03/05/2024 Patient: MAXIMUS POE Provider: Alysa Jones DO :1945 A ge:78 Y S ex:Female Date:03/05/2024 Address:[address] [place], [place] [id number] Pcp:SHAIKH ALBERTO Subjective: * Chief Complaints: * L EFT SHOULDER PAINLeft shoulder pain * HPI: G eneral Follow Up Information: Patient is a 78-year-old female presenting today for left shoulder pain. Patient has a history of a reverse total shoulder arthroplasty performed at [facility] several years ago. Reports has been doing well until about 3 weeks ago when she was scratching her back with her left shoulder. She felt a pop in her shoulder and has been able to move her shoulder following this injury. Denies any prior injury to the shoulder. Denies any numbness or tingling. * ROS: C onstitutional: Denies C [place]. P M and R Intake: Denies F ever. D enies fever, chills, numbness tingling. * Medical History: * Surgical History: * Medications: N one Objective: * Vitals: * Examination: G eneral examination: L eft upper extremity:Skin intact. Prior surgical incision is well-healed. Patient is unable to elevate her shoulder with any active range of motion. She is unable to maintain an abducted shoulder. She does have positive drop arm test. She does have severe pain with range of motion. Overall her motor and sensory exam is intact without deficits. 2+ radial pulse. X -ray Imaging Studies: I reviewed plain film x-rays left shoulder in the office today which demonstrates a reverse total shoulder arthroplasty components in place not evidence of acute fracture or periprosthetic loosening. Assessment: * Assessment: 1. L eft shoulder pain - M25.512 (Primary) Left shoulder pain Painful left total shoulder arthroplasty. Plan: * Treatment: 2. O thers Notes: I discussion with the patient regarding left total shoulder arthroplasty. She is having quite a bit of pain in laxity motor function. Did discuss treatment options. Do recommend MRI with [facility] to evaluate for potential rupture of deltoid. * Procedure Codes: * Follow Up: a fter MRI Forms: * Images: * Sign off status: Completed true * Provider: Alysa Jones DO Date: 0 03/05/2024 Generated for Indira cannon/Abena/Flori on: 0 02/21/2025 02:10 PM EDT History and Physical Notes * HPI (History of Present Illness) Category Sub-Category Detail Notes Category Not es General Follow Up Information Patient is a 78-year -old female presenting today for left shoulder pain. Patient has a history of a reverse total shoulder arthroplasty performed at [facility] several years ago. Reports has been doing well until about 3 weeks ago when she was scratching her back with her left shoulder. She felt a pop in her shoulder and has been able to move her shoulder following this injury. Denies any prior injury to the shoulder. Denies any numbness or tingling Examination Category Sub-Category Detail Notes Category Not es General examination Left upp er extremity:Skin intact. Prior surgical incision is well-healed. Patient is unable to elevate her shoulder with any active range of motion. She is unable to maintain an abducted shoulder. She does have positive drop arm test. She does have severe pain with range of motion. Overall her motor and sensory exam is intact without deficits. 2+ radial pulse X-ray Imaging Studies I revi ewed plain film x-rays left shoulder in the office today which demonstrates a reverse total shoulder arthroplasty components in place not evidence of acute fracture or periprosthetic loosening Consultation Request Notes Referral Date Referring Provider Referred Provider Not es 03/06/2024 James Jones Dylan PRIOR AUTH APPROVED [facility] AETNA...NOT SCHED...please precert MRI left shoulder with metal reduction study at [facility] LOCATION CHANGE TO [facility] [place]
--- OUTSIDE RECORDS SUMMARY | 2024-03-19 07:46 | XMS_ITS ---
Author Organization [facility] Address [address] [place] [address] Care Team Providers [employer] Name Role Phone SHAIKH DOMINGUEZ Primary Care Provider James Garcia Unavailable [phone] REASON FOR VISIT orders Encounters Encounter Location Date Provider Diagnosis [facility] [address] [place] [address] 03/19/2024 James Jones Left shoulder pain M25.512 Assessments Encounter Date Diagnosis (ICD Code) Assessment Notes Treatment Notes Treatment Clinical Notes Section Notes 03/19/2024 Left shoulder pain (ICD-10 - M25.512) Plan Of Treatment Pending Test Test Name Order Date ORDERS 03/19/2024 Chest 2 views - 68001 03/19/2024 Progress Notes * MAXIMUS HERRMANN TDOB:[birth year] (78 yo F)Acc No.[id number]:03/19/2024 Patient: MAXIMUS POE :1945 A ge:78 Y S ex:Female Address:[address] [place] [address], [id number] Subjective: * Chief Complaints: * O rders * Medical History: * Surgical History: * Hospitalization/Major Diagno stic Procedure: * Medications: Objective: * Vitals: * Physical Examination: Assessment: * Assessment: 1. L eft shoulder pain - M25.512 (Primary) Plan: * Treatment: * Procedure Codes: 7 1046 X-RAY EXAM CHEST 2 VIEWS * true * Date: Generated for Printi ng/Faxing/eTransmitting on: 0 02/21/2025 02:09 PM EDT
--- OUTSIDE RECORDS SUMMARY | 2025-02-18 11:30 | XMS_ITS | Encounter Summary ---
Author Organization [facility] Address [address] [facility] [place] [address] Care Team Providers Care Utility Engineer Name Role Phone Renny Hansen MD Primary Care Provider [phone] Renny Hansen MD Unavailable [phone] Lisa Ramirez LPN Unavailable Unavailable Encounter Details Date Type Department Care Team (Late st Contact Info) Description 02/18/2025 11:30 AM EDT Office Visit [facility] [address] [place] [address] Renny Hansen MD 112 [facility] 110 [place] [address] RLS (restless legs syndrome) (Primary Dx) Social History Tobacco Use Types Packs/Day Years Used Date Smoking Tobacco: Former Cigarettes 1 29 S tarted: 1968 Passive Smoke Exposure: Past Tobacco Cessation:Counseling Given: Yes Alcohol Use Standard Drinks/Week Comments Yes 0 [...] often do you attend chur ch or yazidism services? Patient declined 11/12/2024 Do you belong to any clubs o r organizations such as taoist groups, unions, fraDark Angel [employer] or athletic groups, or school groups? No [...] Date Recorded Patient Health Questionnaire-2 Score 0 02/18/2025 [facility] - [...] a half-way (including now)? Patient refused 08/30/2023 Housing Stability [...] time in the past 12 m [facility], were you homeless or living in a half-way (including now)? No 11/12/2024 Comments Unknown Sex and Gender Information Value Date Recorded Sex Assigned at Not on file Legal Sex Female 6:35 PM EDT Gender Identity Not on file Sexual Orientation Not on file documented as of this encounter Last Filed Vital Signs Vital Sign Reading Time Taken Comments Blood Pressure 128/72 02/18/2025 11:38 AM EDT Pulse 61 02/18/2025 11:38 AM EDT Temperature - - Respiratory Rate 16 02/18/2025 11:38 AM EDT Oxygen Saturation 96% 02/18/2025 11:38 AM EDT Inhaled Oxygen Concentration - - Weight 101 kg (223 lb) 02/18/2025 11:38 AM EDT Height 149.9 cm (4' 11 ) 02/18/2025 11:38 AM EDT Body Mass Index 45.04 02/18/2025 11:38 AM EDT documented in this encounter Functional Status * Over the past 2 weeks, how often have you been bothered by any of the following problems? Question Answer Date of Assessment Author Little interest or pleasure in doing things Not at all 02/18/2025 11:24 AM EDT GEOVANNY ALAS Feeling down, depressed, or hopeless Not at all 05/2025 11:24 AM EDT GEOVANNY ALAS Patient Health Questionnaire-2 Score 0 05/2025 11:24 AM EDT GEOVANNY ALAS documented as of this encounter Progress Notes * Renny Hansen MD - 02/18/2025 11:30 AM EDT Images from the original note were not included. Subjective Patient ID: Breann Starks is a 79 y.o. female who presents for 2 months F/U Breann presents today for lower legs / ankle swelling. She states they feel like fire and she feels restless.This happens every night when she is trying to settle down. Current Outpatient Medications on File Prior to Visit Medication Sig Dispense Refill acetaminophen (Tylenol) 500 MG tablet Take 1,000 mg by mouth every 6 (six) hours if needed for mildpain apixaban (Eliquis) 5 MG tablet Take 1 tablet (5 mg) by mouth in the morning and 1 tablet (5 mg) before bedtime. 180 tablet 1 baclofen (Lioresal) 10 MG tablet Take 10 mg by mouth in the morning and 10 mg in the evening and 10mg before bedtime. cholecalciferol (Natural Vitamin D-3) 5,000 Units tablet Take 1 tablet (5,000 Units) by mouth Daily90 tablet 1 flecainide (Tambocor) 100 MG tablet Take 100 mg by mouth every 12 (twelve) hours HYDROcodone-acetaminophen ([place]) 5-325 MG tablet Take 1 tablet by mouth in the morning and 1 tablet in the evening and 1 tablet before bedtime. hydrocortisone (West-Andres) 0.2 % cream Apply topically 2 (two) times a day 45 g 1 ipratropium-albuterol (Duo-Neb) 0.5-2.5 mg/3 mL nebulizer solution Take 3 mL by nebulization in themorning and 3 mL at noon and 3 mL in the evening and 3 mL before bedtime. Multiple Vitamins-Minerals (CENTRUM SILVER 50+WOMEN PO) Take 1 tablet by mouth in the morning. omeprazole (PriLOSEC) [address] capsule Take 1 capsule (40 mg) by mouth Daily 100 capsule 3 penicillin v potassium (Veetid) 500 MG tablet [...] FINGER RELEASE Left RF Visit Vitals BP 128/72 Pulse 61 Resp 16 Ht 4' 11 Wt 223 lb SpO2 96% BMI 45.04 kg/m?? Smoking Status Former BSA 2.05 m?? Review of Systems Objective Physical Exam Vitals [...] motion. Cervical back: Normal range of motion. Right lower le+ Edema present. Left lower le+ Edema present. Lymphadenopathy: Cervical: No cervical adenopathy. Skin: General: Skin is warm and dry. Capillary Refill: Capillary refill takes less than 2 seconds. Neurological: General: No focal deficit present. Mental Status: She is alert and oriented to person, place, and time. Psychiatric: Mood and Affect: Mood normal. Behavior: Behavior normal. Assessment/Plan Diagnoses and all orders for this visit: RLS (restless legs syndrome) - rOPINIRole (Requip) 0.5 MG tablet; Take 1 tablet (0.5 mg) by mouth in the evening. Take with meals Follow up in about 3 months (around 05/21/2025). documented in this encounter Plan of Treatment Upcoming Encounters Date Type Department Care Team (Late st Contact Info) Description 05/16/2025 11:00 AM EDT Office Visit [facility] 112 [facility] 110 [place] [address] Renny Hansen MD 112 [facility] 110 [place] [address] documented as of this encounter Visit Diagnoses Diagnosis RLS (restless legs syndrome)- Primary Restless legs syndrome (RLS) documented in this encounter Additional Health Concerns Assessment Noted Time PHQ-9 Depression Total Score: 1 09/06/20 23 2:00 PM EST documented as of this encounter Care Teams Utility Engineer Relationship Specialty Start Date End Date Renny Hansen MD 112 [facility] 110 [place] [address] PCP - General Internal Medicine 09/19/24 Renny Hansen MD 112 [facility] 110 [place] [address] PCP - Medical [place] 09/12/2409/11 Lisa Ramirez LPN 12/05/24 documented as of this encounter
--- OUTSIDE RECORDS SUMMARY | 2025-02-20 11:00 | XMS_ITS | Encounter Summary ---
Author Organization [facility] Address [address] [place] [address] Care Team Providers Care Spinning Frame Fixer Name Role Phone Renny Hansen MD Primary Care Provider [phone] Balta Cardenas MD Unavailable [phone] Encounter Details Date Type Department Care Team (Late st Contact Info) Description 02/20/2025 11:00 AM EDT Follow-Up [facility] Infectious Disease [address] [place] [address] Ortega Hines MD [address] [facility]/[place] [address] Pain in joint of left shoulder Social History Tobacco Use Types Packs/Day Years Used Date Smoking Tobacco: Former Cigarettes 1 957 - 1999 Smokeless Tobacco: Never Tobacco Cessation:Counseling Given: Not Answered Alcohol Use [...] Date Recorded Patient Health Questionnaire-2 Score 0 02/20/2025 Comments Unknown Sex and Gender Information Value Date Recorded Sex Assigned at Not on file Legal Sex Female 10:18 PM EDT Gender Identity Not on file Sexual Orientation Not on file documented as of this encounter Last Filed Vital Signs Vital Sign Reading Time Taken Comments Blood Pressure 130/77 02/20/2025 11:24 AM EDT Pulse 79 02/20/2025 11:24 AM EDT Temperature - - Respiratory Rate - - Oxygen Saturation - - Inhaled Oxygen Concentration - - Weight 97.5 kg (215 lb) 02/20/2025 11:24 AM EDT Height - - Body Mass Index 43.42 01/17/2025 9:52 AM EDT documented in this encounter Functional Status documented as of this encounter Plan of Treatment Upcoming Encounters Date Type Department Care Team (Late st Contact Info) Description 05/15/2025 11:00 AM EDT Follow-Up [facility] Infectious Disease [address] [place] [address] Ortega Hines MD [address] [facility] [address] Scheduled Orders Name Type Priority Associated Diagnoses Orde r Schedule Basic metabolic panel Lab Routine Pain in joint of left shoulder Expected: 02/20/2025 (Approximate), Expires: 02/20/2026 CBC and differential Lab Routine Pain in joint of left shoulder Expected: 02/20/2025 (Approximate), Expires: 02/20/2026 C-reactive protein Lab Routine Pain in joint of left shoulder Expected: 02/20/2025 (Approximate), Expires: 02/20/2026 documented as of this encounter Visit Diagnoses Diagnosis Pain in joint of left shoulder documented in this encounter Care Teams Spinning Frame Fixer Relationship Specialty Start Date End Date Renny Hansen MD [address] [facility] 110 [place] [address] PCP - General Internal Medicine 07/18/24 Balta Cardenas MD [address] [place] [address] Referring Physician 11/15/24 documented as of this encounter
--- OUTSIDE RECORDS SUMMARY | 2025-02-21 14:09 | XMS_ITS | Encounter Summary ---
Author Organization [facility] Address [address] [place] [address] Care Team Providers Care Cq Developer Name Role Phone Shaikh BEREKET Denis Primary Care Provider [phone] Jazmín Calvillo SHUTTLE BUGGY OPERATOR Unavailable [phone] Renny Hansen MD Primary Care Provider [phone] Renny Hansen MD Unavailable [phone] Cindi Jenkins CLOTH FOLDER HAND Unavailable [phone] Lisa Ramirez LPN Unavailable Unavailable Encounter Details Date Type Department Care Team (Late st Contact Info) Description 05/02/2024 External Result Encounter [facility] External Department Unsolicited Scott Cruz PA [address] [facility] [address] [place] [address] Social History Tobacco Use Types Packs/Day Years [...] week 08/30/2023 How often do you attend mandaen or sabianism serv ices? Patient declined 08/30/2023 Do you belong to any clubs o r organizations such as mandaen groups, unions, fra[employer] or athletic groups, or school groups? Yes [...] Date Recorded Patient Health Questionnaire-2 Score 0 04/11/2024 [facility] Questionnaire Answer Date [...] place to sleep or slept in a prison (including now)? Patient refused 08/30/2023 Comments Unknown Sex and Gender Information Value Date Recorded Sex Assigned at Not on file Legal Sex Female 6:35 PM EDT Gender Identity Not on file Sexual Orientation Not on file documented as of this encounter Plan of Treatment Upcoming Encounters Date Type Department Care Team (Late st Contact Info) Description 05/16/2025 11:00 AM EDT Office Visit [facility] [address] [address] Renny Hansen MD 112 [facility] 110 [place] [address] documented as of this encounter Procedures Procedure Name Priority Date/Time Associated Diagnosis Comments NM BONE WHOLE BODY 3 PHASE 05/02/2024 2:40 PM EDT documented in this encounter Results * NM bone whole body 3 phase (05/02/2024 2:40 PM EDT) Anatomical Region Laterality Modality Nuclear Medicine 05/02/2024 2:40 PM EDT Impressions 05/02/2024 2:46 PM EDT Increased uptake of the left the glenoid. There may be concern for loosening. Correlate with plain film imaging. Increased uptake of the left acromion. May represent degenerative change. Fracture may be present in this region. Correlate with plain film imaging. Impression dictated by: Etienne Rhodes M.D.05/02/2024 2:44 PM Dictation Location: [place] [address] Transcribed By: [facility] 05/02/24 1444 Dictated By: Etienne Rhodes DO 05/02/24 1440 Signed By: <Electronically signed by Etienne Rhodes DO in OV> 05/02/24 1444 Narrative 05/02/2024 2:46 PM EDT [facility] [place] [address] Nuclear Medicine Report Signed Patient: Breann Starks MR#: [id number] : 1945 Acct:[id number] Age/Sex: 78 / F ADM Date: 05/02/24 Loc: [place] Room: Type: [facility] Attending Dr: Scott Cruz PA-C Copies to: YOLY Sanon Jeffrey S DO Ordering Provider: Scott Cruz PA-C Date of Service: 05/02/24 NM/NM [...] correlation. No hyperemia. NM/NM bone 3 phase Procedure Note Radiology, Radiologist, MD - 05/02/2024 [place] [id number] Nuclear Medicine Report Signed Patient: Breann Starks TMR#: [id number] : 8Acct:[id number] Age/Sex: 78 / FADM Date: 05/02/24 Loc: [place] Room:Type: [facility] Attending Dr: Scott Cruz PA-C Copies to: YOLY Sanon Jeffrey S DO Ordering Provider: Scott Cruz PA-C Date of Service: 05/02/24 NM/NM bone 3 phase: M25.512, Z96.612 Nuclear medicine 3 phase bone scan of the left shoulder TECHNIQUE: 23.6mCi of technetium 99m labeled MDP was administered.Three-phase imaging of the left shoulder. COMPARISON: None HISTORY: Fell injuring left shoulder. Pain for 3 months. Assessment forprosthetic loosening Findings: Left shoulder arthroplasty findings. No focal uptake of theglenoid. This may be postoperative. Loosening may be present this region. There is uptake inthe acromium greatest on the left. This may be degenerative. Plain film correlation. Nohyperemia. NM/RAS bone 3 phase IMPRESSION: Increased uptake of the left the glenoid. There may be concern forloosening. Correlate with plain film imaging. Increased uptake of the left acromion.May represent degenerative change. Fracture may be present in this region. Correlatewith plain film imaging. Impression dictated by: Etienne Rhodes M.D.05/02/2024 2:44 PM Dictation Location: [place] [address] Transcribed By: [facility] 05/02/24 1444 Dictated By: Etienne Rhodes DO 05/02/24 1440 Signed By: <Electronically signed by Etienne Rhodes DO in OV> 05/02/24 1444 us Scott [place] PROCEDURES Final Resul t documented in this encounter Visit Diagnoses Not on filedocumented in this encounter Additional Health Concerns Assessment Noted Time PHQ-9 Depression Total Score: 1 09/06/20 23 2:00 PM EST documented as of this encounter Care Teams Cq Developer Relationship Specialty Start Date End Date Shaikh Denis MD [address] [place] [address] PCP - General Internal Medicine 10/17/23 05/16/24 Renny Hansen MD [address] [facility] 110 [place] [address] PCP - General Internal Medicine 09/19/24 Renny Hansen MD [address] [facility] [address] [place] [address] PCP - Medical [facility] 09/12/2409/11 Jazmín Calvillo NP [address] [place] [place] [address] Nurse Practitioner Family Medicine 05/17/24 09/18/24 Cindi Jenkins LSW Driver Supervisor Family Medicine 11/06/24 12/05/24 Lisa Ramirez LPN 12/05/24 documented as of this encounter
--- OUTSIDE RECORDS SUMMARY | 2025-02-21 14:09 | XMS_ITS | Clinical Summary ---
Author Organization [facility] Address [address] [place] [address] Care Team Providers Care Hydrate Control Tender Name Role Phone Renny Hansen MD Primary Care Provider [phone] Renny Hansen MD Unavailable [phone] Lisa Ramirez LPN Unavailable Unavailable Allergies [...] before bedtime. 06/21/20 24 Active HYDROcodone-acet aminophen (Broxton) 5-325 MG tablet Take 1 tablet by [...] 5 MG tabletIndication s:Persistent atrial fibrillation (HCC) Take 1 tablet (5 mg) by mouth in the morning and 1 tablet (5 mg) before bedtime. 180 tablet 1 02/09/20 25 025 Active rOPINIRole (Requip) 0.5 MG tabletIndication s:Restless Leg Syndrome Take 1 tablet (0.5 mg) by mouth in the evening. Take with meals 30 tablet 02/19/20 25 026 Active apixaban (Eliquis) 5 MG tabletIndication s:Persistent atrial fibrillation (HCC) Take 1 tablet (5 mg) by mouth [...] place. MRI ordered, awaiting approval. Will order Broxton as needed as it helped with pain. [...] of HF, and using eliquis Will order mimbres for short term pain control. Educated on [...] Vitamin D deficiency 03/01/2023 Persistent atrial fibrillation 11/18/2022 Overview (09/06/2023): Last Assessment & Plan: -device check in may 2022 <1% AF, had 1 mode switch which lasted 6 seconds -will have her get device check to assess AF burden -[id number] 3 -Continue Xarelto 20 mg daily, continue propafenone to 25 mg 3 times a day Assessment & Plan (12/29/2023 2:36 PM EDT): S/P PPM. Follows [facility] cardiology. On Xarelto for stroke px. Also uses Flecainide, Verapamil. Assessment & Plan (11/07/2023 3:16 PM EST): S/P PPM. Follows [facility] cardiology. On Xarelto for stroke px. Also uses Flecainide, Verapamil. Assessment & Plan (09/06/2023 2:46 PM EST): S/P PPM. Follows [facility] cardiology. On Xarelto for stroke px. Sinus node dysfunction 10/07/2020 Overview (09/06/2023): Last Assessment & Plan: - S/p PPM [employer] -We will have her scheduled for [...] Encounters Date Type Department Care Team Description 02/18/2025 11:30 AM EDT Office Visit [facility] [address] [place] [address] [place] [phone] Renny Hansen MD RLS (restless legs syndrome) (Primary Dx) 02/18/2025 Bamboo flowsheet [facility] [address] [place] [address] [place] [address] Renny Hansen MD 02/18/2025 Travel 02/11/2025 Travel 02/08/2025 Refill [facility] [address] [facility] [address] [place] [address] Renny Hansen MD Persistent atrial fibrillation (HCC) 02/06/2025 [facility] [address] [place] [address] Saira Chi RN 01/28/2025 Patient Outreach [facility] [address] [place] [address] Cindi Jenkins LSW 01/18/2025 Refill [facility] [address] [facility] [address] [place] [phone] Renny Hansen MD Peptic ulcer, site unspecified, unspecified as acute or chronic, without hemorrhage or perforation; Peptic ulcer 01/04/2025 Abstract [facility] [address] [facility] [address] [place] [address] Renny Hansen MD 01/03/2025 External Result Encounter [facility] External Department Unsolicited Juan Monahan DO 12/21/2024 Clinisync Result Encounter [facility] External Department Unsolicited Provider, Generic External Data 12/17/2024 11:00 AM EDT Office Visit [facility] [address] [facility] [address] [place] [phone] Renny Hansen MD 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 Patient declined 11/12/2024 Do you belong to any clubs o r organizations such as evangelical groups, unions, fraternal or athletic groups, or [...] Recorded Patient Health Questionnaire-2 Score 0 02/18/2025 [facility] Occupat ional Health - [...] any time in the past 12 m [facility], were you homeless or living in a residential (including now)? No 11/12/2024 Comments Unknown Sex and Gender Information Value Date Recorded Sex Assigned at Not on file Legal Sex Female 6:35 PM EDT Gender Identity Not on file Sexual Orientation Not on file Last Filed Vital Signs Vital Sign Reading Time Taken Comments Blood Pressure 128/72 02/18/2025 11:38 AM EDT Pulse 61 02/18/2025 11:38 AM EDT Temperature 36.9 C (98.4 F) 08/02/2024 10:51 AM EST Respiratory Rate 16 02/18/2025 11:38 AM EDT Oxygen Saturation 96% 02/18/2025 11:38 AM EDT Inhaled Oxygen Concentration - - Weight 101 kg (223 lb) 02/18/2025 11:38 AM EDT Height 149.9 cm (4' 11 ) 02/18/2025 11:38 AM EDT Body Mass Index 45.04 02/18/2025 11:38 AM EDT Plan of Treatment Upcoming Encounters Date Type Department Care Team (Late st Contact Info) Description 05/16/2025 11:00 AM EDT Office Visit [facility] 112 [facility] [address] [place] [address] Renny Hansen MD 112 [facility] [address] [place] [address] Health Maintenance Due Date Last Done Comments [...] Dimitrios Blanco M.D.01/03/2025 3:42 PM Dictation Location: [facility] Tech: Ghazal Wilson Transcribed By: STAR 01/03/25 1542 Dictated By: Dimitrios Blanco MD 01/03/25 153 Signed By: <Electronically signed by Dimitrios Blanco MD in OV> 01/03/25 1542 Narrative 01/03/2025 3:44 PM EDT [facility] Main [place] [id number] Ultrasound Report Signed Patient: Breann Starks MR#: [id number] : 1945 Acct:[id number] Age/Sex: 79 / F ADM Date: 01/03/25 Loc: XT Room: Type: REG RCR Attending Dr: Katharina Toledo APRN [...] Procedure Note Radiology, Radiologist, MD - 01/03/2025 [facility] Main [address] [address] Ultrasound Report Signed Patient: Breann Starks TMR#: [id number] : 8Acct:[id number] Age/Sex: 79 / FADM Date: 01/03/25 Loc: XT Room:Type: REG RCR Attending Dr: Katharina Toledo APRN Ordering Provider: Juan Monahan II, DO Date of Service: 01/03/25 US/US axilla: R59.0 - Localized enlarged lymphnodes Copies to: Katharina Toledo, CONSTANTINE Monahan, II, DO Left axillary ultrasound INDICATION: Lymphadenopathy [...] Dimitrios Blanco M.D.01/03/2025 3:42 PM Dictation Location: [facility] Tech: Ghazal Wilson Transcribed By: [facility] 01/03/25 1542 Dictated By: Dimitrios Blanco MD [...] 0.55 - 1.02 mg/dL [facility] EGFR-AF HONDURAN >60 >=60 mL/min/1.7 3m 2 TBH [facility] EGFR-NON AF HONDURAN 55(L) >=60 mL/min/1.7 3m 2 [facility] BUN CREATININE RATIO 22.4 TBH CALCIUM 9.1 8.5 - 10.1 mg/dL [facility] 12/21/2024 4:58 PM EDT 12/21/2024 4:58 PM EDT Narrative [facility] - 12/21/2024 5:23 PM EDT us Generic External Data Provider [facility] F inal Result [facility] from Last 3 Months Insurance [employer] MEDICARE Care Teams Hydrate Control Tender Relationship Specialty Start Date End Date Renny Hansen MD [address] [facility] [address] [place] [address] PCP - General Internal Medicine 09/19/24 Renny Hansen MD [address] [facility] [address] [place] [address] PCP - Medical [place] 09/12/2409/11 Lisa Ramirez LPN 12/05/24
--- OUTSIDE RECORDS SUMMARY | 2025-02-21 14:10 | XMS_ITS | Encounter Summary ---
Author Organization [facility] Address [address] [place] [address] Care Team Providers Care Computer Mechanic Name Role Phone Renny Hansen MD Primary Care Provider [phone] Renny Hansen MD Unavailable [phone] Lisa Ramirez LPN Unavailable Unavailable Encounter Details Date Type Department Care Team (Late st Contact Info) Description 01/03/2025 External Result Encounter [facility] External Department Unsolicited Juan Monahan, DO [address] [place] [address] Social History Tobacco Use Types Packs/Day Years [...] any clubs o r organizations such as mandaeism groups, unions, fraternal [...] Recorded Patient Health Questionnaire-2 Score 0 10/17/2024 [facility] of Occupat ional Health - [...] place to sleep or slept in a care home (including now)? Patient refused 08/30/2023 Housing [...] time in the past 12 m [facility], were you homeless or living in a care home (including now)? No 11/12/2024 Comments Unknown Sex and Gender Information Value Date Recorded Sex Assigned at Not on file Legal Sex Female 6:35 PM EDT Gender Identity Not on file Sexual Orientation Not on file documented as of this encounter Plan of Treatment Upcoming Encounters Date Type Department Care Team (Late st Contact Info) Description 05/16/2025 11:00 AM EDT Office Visit [facility] [address] [facility] 110 [place] [address] Renny Hansen MD [address] [facility] 110 [place] [address] documented as of this encounter Procedures Procedure [...] Dimitrios Blanco M.D.01/03/2025 3:42 PM Dictation Location: [facility] Tech: Ghazal Wilson Transcribed By: STAR 01/03/25 1542 Dictated By: Dimitrios Blanco MD 01/03/25 1532 Signed By: <Electronically signed by Dimitrios Blanco MD in OV> 01/03/25 1542 Narrative 01/03/2025 3:44 PM EDT [facility] [address] Ultrasound Report Signed Patient: Breann Starks MR#: [id number] 171 : 1945 Acct:[id number] Age/Sex: 79 / F ADM Date: 01/03/25 Loc: Room: Type: [facility] RCR Attending Dr: Katharina Toledo APRN [...] axilla Procedure Note Radiology, Radiologist, - 01/03/2025 [facility] Main [place] [address] [place] [address] Ultrasound Report Signed Patient: Breann Starks TMR#: [id number] 171 : 8Acct:[id number] Age/Sex: 79 / FADM Date: 01/03/25 Loc: [facility] Attending Dr: Katharina Toledo APRN Ordering Provider: [...] Dimitrios Blanco M.D.01/03/2025 3:42 PM Dictation Location: [facility] Tech: Ghazal Wilson Transcribed By: STAR 01/03/25 [...] documented as of this encounter Care Teams Computer Mechanic Relationship Specialty Start Date End Date Renny Hansen MD [address] [facility] 110 [place] [address] PCP - General Internal Medicine 09/19/24 Renny Hansen MD [address] [facility] [address] [place] [address] PCP - Medical [place] 09/12/2409/11 Lisa Ramirez LPN 12/05/24 documented as of this encounter
--- OUTSIDE RECORDS SUMMARY | 2025-02-21 14:10 | XMS_ITS | Encounter Summary ---
Author Organization [facility] Address [address] [facility] [place] [address] Care Team Providers Care Physician Anesthesiologist Name Role Phone Renny Hansen MD Primary Care Provider Renny Hansen MD Unavailable [phone] Lisa Ramirez LPN Unavailable Unavailable Encounter Details Date Type Department Care Team (Late st Contact Info) Description 01/04/2025 Abstract [facility] 112 [facility] 110 [place] [address] Renny Hansen MD 112 [facility] 110 [place] [address] Social History Tobacco Use Types Packs/Day Years [...] How often do you attend chur or mormonism services? Patient declined 11/12/2024 Do you belong to any clubs o r organizations such as mormon groups, unions, fraternal [...] Recorded Patient Health Questionnaire-2 Score 0 10/17/2024 [facility] of Occupat ional Health - [...] a jail (including now)? Patient refused 08/30/2023 Housing Stability [...] any time in the past 12 m [facility], were you homeless or living in a jail (including now)? No 11/12/2024 Comments Unknown Sex [...] EDT Office Visit [facility] 112 [facility] 110 [place] [address] Renny Hansen MD 112 [facility] 110 [place] [address] documented as of this encounter Visit Diagnoses Not on filedocumented in this encounter Additional Health Concerns Assessment Noted Time PHQ-9 Depression Total Score: 1 09/06/20 23 2:00 PM EST documented as of this encounter Care Teams Physician Anesthesiologist Relationship Specialty Start Date End Date Renny Hansen MD 112 [facility] 110 [place] [address] PCP - General Internal Medicine 09/19/24 Renny Hansen MD [address] [facility] [address] [place] [address] PCP - Medical [place] 09/12/2409/11 Lisa Ramirez LPN 12/05/24 documented as of this encounter
--- OUTSIDE RECORDS SUMMARY | 2025-02-21 14:10 | XMS_ITS | Encounter Summary ---
Author Organization [facility] Address [address] [facility] [place] [address] Care Team Providers Care Quarry Extraction Worker Name Role Phone Renny Hansen MD Primary Care Provider [phone] Renny Hansen MD Unavailable [phone] Cindi Jenkins ROUSTABOUT CREW LEADER Unavailable [phone] Lisa Ramirez PRODUCT MANAGEMENT MANAGER Unavailable Unavailable Encounter Details Date Type Department Care Team (Late st Contact Info) Description 09/21/2024 Abstract [facility] 112 [facility] 110 [place] [address] Renny Hansen MD 112 [facility] 110 [place] [address] Social History Tobacco Use Types [...] week 08/30/2023 How often do you attend gnosticist or jew serv ices? Patient declined 08/30/2023 Do you belong to any clubs o r organizations such as gnosticist groups, unions, fraternal or athletic groups, or [...] Recorded Patient Health Questionnaire-2 Score 0 05/31/2024 [facility] of Occupat ional [facility] - Occupational Stress Questionnaire Answer [...] a residential (including now)? Patient refused 08/30/2023 Comments Unknown [...] Visit [facility] [address] [facility] [address] [place] [address] Renny Hansen MD [address] [facility] [address] [place] [address] documented as of this encounter Visit Diagnoses Not on filedocumented in this encounter Additional Health Concerns Assessment Noted Time PHQ-9 Depression Total Score: 1 09/06/20 23 2:00 PM EST documented as of this encounter Care Teams Quarry Extraction Worker Relationship Specialty Start Date End Date Renny Hansen MD [address] [facility] [address] [place] [address] PCP - General Internal Medicine 09/19/24 Renny Hansen MD [address] [facility] [address] [place] [address] PCP - Medical [place] 09/12/2409/11 Cindi Jenkins, ROUSTABOUT CREW LEADER Health Plan Specialist Family Medicine 11/06/24 12/05/24 Lisa Ramirez LPN 12/05/24 documented as of this encounter
--- OUTSIDE RECORDS SUMMARY | 2025-02-21 14:10 | XMS_ITS | Encounter Summary ---
Author Organization [facility] Address [address] [facility] [place] [address] Care Team Providers Care Solder Making Supervisor Name Role Phone Renny Hansen MD Primary Care Provider [phone] Renny Hansen MD Unavailable [phone] Cindi Jenkins NUTRITION HELPER Unavailable [phone] Lisa Ramirez DIRECTOR OF CARDIOLOGY SERVICE LINE Unavailable Unavailable Encounter Details Date Type Department Care Team (Late st Contact Info) Description 10/30/2024 Abstract [facility] 112 [facility] 110 [place] [address] Renny Hansen MD 112 [facility] 110 [place] [address] Social History Tobacco Use Types [...] file 10/10/2024 How often do you attend rastafarian or presybeterian serv ices? Patient declined 10/10/2024 Do you [...] Recorded Patient Health Questionnaire-2 Score 0 10/17/2024 [facility] of Occupat ional Health - Occupational [...] a long-term (including now)? Patient refused 08/30/2023 Housing Stability Vital Sign Answer Ananda e Recorded In the last 12 months, was t here a time when you were not able to pay the mortgage or rent on time? No 10/10/2024 Number of Times Moved in the Last Year Not on fi le 10/10/2024 At any time in the past 12 m [facility], were you homeless or living in a long-term (including now)? No 10/10/2024 Comments Unknown Sex and Gender Information Value Date Recorded Sex Assigned at Not on file Legal Sex Female 6:35 PM EDT Gender Identity Not on file Sexual Orientation Not on file documented as of this encounter Plan of Treatment Upcoming Encounters Date Type Department Care Team (Late st Contact Info) Description 05/16/2025 11:00 AM EDT Office Visit [facility] 112 [facility] 110 [place] [address] Renny Hansen MD 112 [facility] [address] [place] [address] documented as of this encounter Visit Diagnoses Not on filedocumented in this encounter Additional Health Concerns Assessment Noted Time PHQ-9 Depression Total Score: 1 09/06/20 23 2:00 PM EST documented as of this encounter Care Teams Solder Making Supervisor Relationship Specialty Start Date End Date Renny Hansen MD [address] [facility] [address] [place] [address] PCP - General Internal Medicine 09/19/24 Renny Hansen MD [address] [facility] [address] [place] [address] PCP - Medical [place] 09/12/2409/11 Cindi Jenkins LSW Client Service And Consulting Manager Family Medicine 11/06/24 12/05/24 Lisa Ramirez LPN 12/05/24 documented as of this encounter
--- OUTSIDE RECORDS SUMMARY | 2025-02-21 14:10 | XMS_ITS | Encounter Summary ---
Author Organization [facility] Address [address] [facility] [place] [address] Care Team Providers Care Set Key Driver Name Role Phone Renny Hansen MD Primary Care Provider Renny Hansen MD Unavailable [phone] Lisa Ramirez LPN Unavailable Unavailable Encounter Details Date Type Department Care Team (Late st Contact Info) Description 02/18/2025 Bamboo flowsheet [facility] [address] [facility] 110 [place] [address] Renny Hansen MD [address] [facility] [address] [place], [place] [address] Social History Tobacco Use Types Packs/Day Years [...] How often do you attend chur or catholic services? Patient declined 11/12/2024 Do you belong [...] Recorded Patient Health Questionnaire-2 Score 0 02/18/2025 [facility] of Occupat ional Health - Occupational Stress [...] place to sleep or slept in a mcc (including now)? Patient refused 08/30/2023 Housing Stability [...] time in the past 12 m [facility], were you homeless or living in a mcc (including now)? No 11/12/2024 Comments Unknown Sex [...] Office Visit [facility] 112 [facility] 110 [place] [address] Renny Hansen MD 112 [facility] 110 [place], [place] [address] documented as of this encounter Visit Diagnoses Not on filedocumented in this encounter Additional Health Concerns Assessment Noted Time PHQ-9 Depression Total Score: 1 09/06/20 23 2:00 PM EST documented as of this encounter Care Teams Set Key Driver Relationship Specialty Start Date End Date Renny Hansen MD [address] [facility] 110 [place] [address] PCP - General Internal Medicine 09/19/24 Renny Hansen MD [address] [facility] 110 [place] [address] PCP - Medical [place] 09/12/2409/11 Lisa Ramirez LPN 12/05/24 documented as of this encounter
--- OUTSIDE RECORDS SUMMARY | 2025-02-21 14:10 | XMS_ITS | Encounter Summary ---
Author Organization [facility] Address [address] [place] [address] Care Team Providers Care Baseball Umpire [employer] Name Role Phone Shaikh BEREKET Denis Primary Care Provider [phone] Jazmín Calvillo CLIENT SUPPORT PROFESSIONAL Unavailable [phone] Renny Hansne MD Primary Care Provider [phone] Renny Hansen MD Unavailable [phone] Cindi Jenkins COMMUNICATIONS PROFESSIONAL Unavailable [phone] Lisa Ramirez LPN Unavailable Unavailable Encounter Details Date Type Department Care Team (Late st Contact Info) Description 03/02/2024 Clinisync Result Encounter [facility] External Department Unsolicited Shaikh Denis MD [address] [place] [address] Social History Tobacco Use Types Packs/Day Years [...] week 08/30/2023 How often do you attend hinduism or restorationism serv ices? Patient declined 08/30/2023 Do you belong to any clubs o r organizations such as hinduism groups, unions, fraternal or athletic groups, or [...] Recorded Patient Health Questionnaire-2 Score 0 02/27/2024 [facility] [...] 05/16/2025 11:00 AM EDT Office Visit [facility] 112 [facility] 110 [place] [address] Renny Hansen MD 112 [facility] 110 [place] [address] documented as of this encounter Procedures Procedure Name Priority Date/Time Associated Diagnosis Comments CA ECHO DOPPLER COMPLETE 03/02/2024 9:05 AM EDT documented in this encounter Results * CA ECHO DOPPLER COMPLETE (03/02/2024 9:05 AM EDT) Anatomical Region Laterality Modality Other 03/02/2024 9:05 AM EDT Narrative 03/02/2024 9:06 AM EDT The [address] [address] Cardiology Report Signed Patient: MAXIMUS STARKS MR#: [id number] : 1945 Acct:[id number] Age/Sex: 78 / F ADM Date: 02/29/24 Loc: CARD Attending Dr: Shaikh Cira Kilgore Ordering Physician: Shaikh Magui Denis Date of Service: 02/29/24 Procedure(s): CA echo doppler complete Accession Number(s): [id number] cc: Shaikh Magui Denis Patient Name: MAXIMUS STARKS MR#: [id number] : 1945 Exam Date: 02/29/2024 Ordering Doctor: [...] SALAZAR Signed By: 03/02/24905 DD/ 4 TD/TT: Fat Pressroom Worker: Procedure Note Radiology, Radiologist, MD - 03/02/2024 [place] [address] Cardiology Report Signed Patient: MAXIMUS STARKS TMR#: [id number] : 8Acct:[id number] Age/Sex: 78 / FADM Date: 02/29/24 Loc: CARD Attending Dr: Shaikh Cira Kilgore Ordering Physician: Shaikh Magui Denis Date of Service: 02/29/24 Procedure(s): CA echo doppler complete Accession Number(s): [id number] cc: Shaikh Magui Denis Patient Name: MAXIMUS STARKS MR#: [id number] : 1945 Exam Date: 02/29/2024 Ordering Doctor: [...] SAKINA SALAZAR Signed By:03/02/24905 DD/ 4 TD/TT: Fat Pressroom Worker: Shaikh Cira [facility] Final Result documented in this encounter Visit Diagnoses Not on filedocumented in this encounter Additional Health Concerns Assessment Noted Time PHQ-9 Depression Total Score: 1 09/06/20 23 2:00 PM EST documented as of this encounter Care Teams Baseball Umpire [employer] Relationship Specialty Start Date End Date Shaikh Denis MD [address] [place] [address] PCP - General Internal Medicine 10/17/23 05/16/24 Renny Hansen MD [address] [facility] 110 [place] [address] PCP - General Internal Medicine 09/19/24 Renny Hansen MD [address] [facility] 110 [place] [address] PCP - Medical [facility] 09/12/2409/11 Jazmín Calvillo NP [address] [place] [address] Nurse Practitioner Family Medicine 05/17/24 09/18/24 Cindi Jenkins LSW Agronomy Internship Family Medicine 11/06/24 12/05/24 Lisa Ramirez LPN 12/05/24 documented as of this encounter
--- OUTSIDE RECORDS SUMMARY | 2025-02-21 14:10 | XMS_ITS | Encounter Summary ---
Author Organization [facility] Address [address] [place] [address] Care Team Providers Care Breakdown Person Name Role Phone Shaikh BEREKET Denis Primary Care Provider [phone] Shaikh BEREKET Denis Primary Care Provider [phone] Jazmín Calvillo CUSTOMER ACCOUNT EXECUTIVE Unavailable [phone] Renny Hansen MD Primary Care Provider [phone] Renny Hansen MD Unavailable [phone] Cindi Jenkins PRODUCT MANAGEMENT SPECIALIST Unavailable [phone] Lisa Ramirez GIS ADMINISTRATOR Unavailable Unavailable Encounter Details Date Type Department Care Team (Late st Contact Info) Description 09/07/2023 Abstract [facility] [address] [place] [address] Shaikh Denis MD [address] [place] [address] Social History Tobacco Use Types Packs/Day Years [...] week 08/30/2023 How often do you attend roman catholic or evangelical serv ices? Patient declined 08/30/2023 Do you belong to any clubs o r organizations such as roman catholic groups, unions, fraternal or athletic groups, or [...] Recorded Patient Health Questionnaire-2 Score 0 09/06/2023 [facility] of Occupat ional Health - Occupational [...] 05/16/2025 11:00 AM EDT Office Visit [facility] [address] [facility] 110 [place] [address] Renny Hansen MD [address] [facility] 110 [place] [address] documented as of this encounter Visit Diagnoses Not on filedocumented in this encounter Additional Health Concerns Assessment Noted Time PHQ-9 Depression Total Score: 1 09/06/20 23 2:00 PM EST documented as of this encounter Care Teams Breakdown Person Relationship Specialty Start Date End Date Shaikh Denis MD PCP - General Internal Medicine 04/05/23 10/16/23 Shaikh Denis MD [address] [place] [address] PCP - General Internal Medicine 10/17/23 05/16/24 Renny Hansen MD [address] [facility] [address] [place] [address] PCP - General Internal Medicine 09/19/24 Renny Hansen MD [address] [facility] 110 [place] [address] PCP - Medical [facility] 09/12/2409/11 Jazmín Calvillo NP [address] [place] [address] Nurse Practitioner Family Medicine 05/17/24 09/18/24 Cindi Jenkins LSW Corn Chip Maker Family Medicine 11/06/24 12/05/24 Lisa Ramirez LPN 12/05/24 documented as of this encounter
--- OUTSIDE RECORDS SUMMARY | 2025-02-21 14:10 | XMS_ITS | Encounter Summary ---
Author Organization [facility] Address [address] [facility] [place] [address] Care Team Providers Care Tubing Tester Name Role Phone Renny Hansen MD Primary Care Provider [phone] Renny Hansen MD Unavailable [phone] Lisa Ramirez LPN Unavailable Unavailable Encounter Details Date Type Department Care Team (Latest Contact Info) Description 02/11/2025 Travel Social History Tobacco Use Types Packs/Day Years [...] often do you attend chur ch or confucianism services? Patient declined 11/12/2024 Do you belong [...] Recorded Patient Health Questionnaire-2 Score 0 10/17/2024 [facility] of Occupat ional Health - Occupational [...] long term (including now)? Patient refused 08/30/2023 Housing Stability [...] any time in the past 12 m [facility], were you homeless or living in a long term (including now)? No 11/12/2024 Comments Unknown Sex [...] Visit [facility] [address] [facility] 110 [place] [address] Renny Hansen MD [address] [facility] 110 [place] [address] documented as of this encounter Visit Diagnoses Not on filedocumented in this encounter Additional Health Concerns Assessment Noted Time PHQ-9 Depression Total Score: 1 09/06/20 23 2:00 PM EST documented as of this encounter Care Teams Tubing Tester Relationship Specialty Start Date End Date Renny Hansen MD [address] [facility] 110 [place] [address] PCP - General Internal Medicine 09/19/24 Renny Hansen MD 112 [place] [address] PCP - Medical [place] 09/12/2409/11 Lisa Ramirez LPN 12/05/24 documented as of this encounter
--- OUTSIDE RECORDS SUMMARY | 2025-02-21 14:10 | XMS_ITS | Encounter Summary ---
Author Organization [facility] Address [address] [place] [address] Care Team Providers Care Government Minister Name Role Phone Shaikh BEREKET Denis Primary Care Provider [phone] Shaikh BEREKET Denis Primary Care Provider [phone] Jazmín Calvillo PROCESS IMPROVEMENT CONSULTANT Unavailable [phone] Renny Hansen MD Primary Care Provider [phone] Renny Hansen MD Unavailable [phone] Cindi Jenkins DIRECTOR VOLUNTEER SERVICES Unavailable [phone] Lisa Ramirez LPN Unavailable Unavailable Reason for Visit * Reason Comments Med Refill Encounter Details Date Type Department Care Team (Late st Contact Info) Description 10/13/2023 Refill [facility] [address] [place] [address] Shaikh Denis MD [address] [place] [address] Peptic ulcer, site unspecified, unspecified [...] week 08/30/2023 How often do you attend denominational or alevism serv ices? Patient declined 08/30/2023 Do you belong to any clubs o r organizations such as denominational groups, unions, fraternal or athletic groups, or [...] Recorded Patient Health Questionnaire-2 Score 0 09/06/[address] [facility] of Occupat ional Health - Occupational Stress [...] a longterm (including now)? Patient refused 08/30/2023 Comments Unknown [...] 05/16/2025 11:00 AM EDT Office Visit [facility] 112 [facility] 110 [place] [address] Renny Hansen MD [address] [place] [address] [place] [address] documented as of this encounter Visit Diagnoses [...] documented as of this encounter Care Teams Government Minister Relationship Specialty Start Date End Date Shaikh Denis MD PCP - General Internal Medicine 04/05/23 10/16/23 Shaikh Denis MD [address] [place] [address] PCP - General Internal Medicine 10/17/23 05/16/24 Renny Hansen MD [address] [place] [address] PCP - General Internal Medicine 09/19/24 Renny Hansen MD [address] [facility] 110 [place] [address] PCP - Medical [facility] 09/12/2409/11 Jazmín Calvillo NP [address] [place] [address] Nurse Practitioner Family Medicine 05/17/24 09/18/24 Cindi Jenkins LSW Director Of Music Family Medicine 11/06/24 12/05/24 Lisa Ramirze LPN 12/05/24 documented as of this encounter
--- OUTSIDE RECORDS SUMMARY | 2025-02-21 14:10 | XMS_ITS | Encounter Summary ---
Author Organization [facility] Address [address] [facility] [place] [address] Care Team Providers Care Transport Coordinator Name Role Phone Renny Hansen MD Primary Care Provider [phone] Renny Hansen MD Unavailable [phone] Cindi Jenkins NUCLEAR UNIT OPERATOR Unavailable [phone] Lisa Ramirez BREASTER Unavailable Unavailable Encounter Details Date Type Department Care Team (Late st Contact Info) Description 10/03/2024 Orders Only [facility] [address] [place] [address] [place] [address] Carlene Yan LPN [address] [place] [address] Nausea Social History Tobacco Use Types Packs/Day [...] week 08/30/2023 How often do you attend judaism or scientologist serv ices? Patient declined 08/30/2023 Do you belong to any clubs o r organizations such as judaism groups, unions, fraternal or athletic groups, or [...] Patient Health Questionnaire-2 Score 0 05/31/2024 [facility] of Occupat ional Health - [...] Visit [facility] [address] [facility] 110 [place] [address] Renny Hansen MD [address] [facility] 110 [place] [address] documented as of this encounter Visit Diagnoses Diagnosis Nausea Nausea alone documented in this encounter Additional Health Concerns Assessment Noted Time PHQ-9 Depression Total Score: 1 09/06/20 23 2:00 PM EST documented as of this encounter Care Teams Transport Coordinator Relationship Specialty Start Date End Date Renny Hansen MD [address] [facility] 110 [place] [address] PCP - General Internal Medicine 09/19/24 Renny Hansen MD [address] [place] [address] [place] [address] PCP - Medical [place] 09/12/2409/11 Cindi Jenkins LSW Memory Care Program Director Family Medicine 11/06/24 12/05/24 Lisa Ramirez LPN 12/05/24 documented as of this encounter
--- OUTSIDE RECORDS SUMMARY | 2025-02-21 14:10 | XMS_ITS | Encounter Summary ---
Author Organization [facility] Address [address] [facility] [place] [address] Care Team Providers Care Fashion Buyer Name Role Phone Jazmín Calvillo DOCTOR OF NURSE ANESTHESIA PRACTICE Unavailable [phone] Renny Hansen MD Primary Care Provider [phone] Renny Hansen MD Unavailable [phone] Cindi Jenkins DESK INTERVIEWER Unavailable [phone] Lisa Ramirez GROUND WATER PUMP INSTALLER Unavailable Unavailable Reason for Referral * Consultation (Routine) - Closed Specialty Diagnoses / Procedures Referred By Millie egan Referred To Contact Neurology Diagnoses Neck pain on left side Procedures SC OFFICE/OUTPATIENT [facility] MDM 60 MINUTES Renny Hansen MD [address] [address] Phone: tel: fax: Wil Lord MD Referral ID Status Reason Start Date Expiration Date V isits Requested Visits Authorized [id number] Closed Specialty Services Required 09/13/2024 03/12/2025 1 1 Encounter Details Date Type Department Care Team (Late st Contact Info) Description 09/13/2024 Abstract [facility] 112 [facility] 110 [place] [address] Renny Hansen MD 112 [facility] 110 [place], [place] [address] Neck pain on left side Social History [...] week 08/30/2023 How often do you attend episcopalian or restoration serv ices? Patient declined 08/30/2023 Do you belong to any clubs o r organizations such as episcopalian groups, unions, fraternal [...] Recorded Patient Health Questionnaire-2 Score 0 05/31/2024 [facility] of Occupat ional Health - [...] senior care (including now)? Patient refused 08/30/2023 Comments Unknown [...] AM EDT Office Visit [facility] 112 [facility] 110 [place] [address] Renny Hansen MD 112 [facility] 110 [place] [address] Scheduled Referrals Name Type Priority Associated Diagnoses [...] documented as of this encounter Care Teams Fashion Buyer Relationship Specialty Start Date End Date Renny Hansen MD 112 [facility] 110 [place], [place] [address] PCP - General Internal Medicine 09/19/24 Renny Hansen MD 112 [facility] 110 [place] [address] PCP - Medical [place] 09/12/2409/11 Jazmín Calvillo NP Nurse Practitioner Family Medicine 05/17/24 09/18/24 Cindi Jenkins LSW Bandage Winding Machine Operator Family Medicine 11/06/24 12/05/24 Lisa Ramirez LPN 12/05/24 documented as of this encounter
--- OUTSIDE RECORDS SUMMARY | 2025-02-21 14:10 | XMS_ITS | Encounter Summary ---
Author Organization [facility] Address [address] [place] [address] Care Team Providers Care Fundraising Director Name Role Phone Shaikh BEREKET Denis Primary Care Provider [phone] Jazmín Calvillo GENERATION MECHANIC HELPER Unavailable [phone] Renny Hansen MD Primary Care Provider [phone] Renny Hansen MD Unavailable [phone] Cindi Jenkins COTTON BREEDER Unavailable [phone] Lisa Ramirez LPN Unavailable Unavailable Encounter Details Date Type Department Care Team (Late st Contact Info) Description 11/10/2023 Orders Only [facility] [address] [place] [address] Shaikh Denis MD [address] [place] [address] Social History Tobacco Use Types Packs/Day Years [...] week 08/30/2023 How often do you attend sikh or pentecostal serv ices? Patient declined 08/30/2023 Do you belong to any clubs o r organizations such as sikh groups, unions, fraternal or athletic groups, or [...] Recorded Patient Health Questionnaire-2 Score 0 11/07/2023 [facility] of Occupat ional Health - [...] 05/16/2025 11:00 AM EDT Office Visit [facility] 112 [facility] 110 [place] [address] Renny Hansen MD 112 [facility] 110 [place] [address] documented as of this encounter Visit Diagnoses Not on filedocumented in this encounter Additional Health Concerns Assessment Noted Time PHQ-9 Depression Total Score: 1 09/06/20 23 2:00 PM EST documented as of this encounter Care Teams Fundraising Director Relationship Specialty Start Date End Date Shaikh Denis MD [address] [place] [address] PCP - General Internal Medicine 10/17/23 05/16/24 Renny Hansen MD [address] [facility] [address] [place] [address] PCP - General Internal Medicine 09/19/24 Renny Hansen MD [address] [facility] 110 [place] [address] PCP - Medical [facility] 09/12/2409/11 Jazmín Calvillo NP [address] [place] [address] Nurse Practitioner Family Medicine 05/17/24 09/18/24 Cindi Jenkins LSW Napper Grinder Family Medicine 11/06/24 12/05/24 Lisa Ramirez LPN 12/05/24 documented as of this encounter
--- OUTSIDE RECORDS SUMMARY | 2025-02-21 14:10 | XMS_ITS | Encounter Summary ---
Author Organization [facility] Address [address] [facility] [place] [address] Care Team Providers Care Entry Level Business Analyst Name Role Phone Shaikh BEREKET Denis Primary Care Provider [phone] Jazmín Calvillo BRAKE REPAIR MECHANIC Unavailable [phone] Renny Hansen MD Primary Care Provider [phone] Renny Hansen MD Unavailable [phone] Cindi Jenkins CHANGE CONSULTANT Unavailable [phone] Lisa Ramirez LPN Unavailable Unavailable Encounter [...] week 08/30/2023 How often do you attend confucianism or yazidism serv ices? Patient declined 08/30/2023 Do you belong to any clubs o r organizations such as confucianism groups, unions, fraternal or athletic groups, or [...] Recorded Patient Health Questionnaire-2 Score 0 11/07/2023 [facility] - Occupational Stress Questionnaire [...] 05/16/2025 11:00 AM EDT Office Visit [facility] [address] [facility] 110 [place] [address] Renny Hansen MD 112 [facility] 110 [place] [address] documented as of this encounter Procedures Procedure Name Priority Date/Time Associated Diagnosis Comments XR DEXA AXIAL SKELETON 12/12/2023 1:46 PM EDT documented in this encounter Results * XR DEXA AXIAL SKELETON (12/12/2023 1:46 PM EDT) Anatomical Region Laterality Modality Other 12/12/2023 1:46 PM EDT Narrative 12/12/2023 1:48 PM EDT The [address] [address] XRay Report Signed Patient: MAXIMUS STARKS MR#: [id number] : 1945 Acct:[id number] Age/Sex: 78 / F ADM Date: 12/12/23 Loc: RAD Attending Dr: Renée Barry NP Ordering Physician: Renée Barry NP Date of Service: 12/12/23 Procedure(s): XR DEXA axial skeleton Accession Number(s): [id number] cc: Shaikh Magui Denis; Renée Barry NP The [place] [address] Patient Name: MAXIMUS STARKS MRN: [id number] date: 1945 Sex: F Assigned Patient Location: RAD Current Patient Location: RAD Accession/Order Number: [id number] Exam Date: 12/12/2023 12:57 Report Date: 12/12/2023 [...] Signed By: 12/12/23 1348 DD/ 1346 TD/TT: Junior Web Developer: Procedure Note Radiology, Radiologist, MD - 12/15/2023 [place] [address] XRay Report Signed Patient: MAXIMUS STARKS TMR#: [id number] : 8Acct:[id number] Age/Sex: 78 / FADM Date: 12/12/23 Loc: RAD Attending Dr: Renée Barry BRAKE REPAIR MECHANIC Ordering Physician: Renée Barry NP Date of Service: 12/12/23 Procedure(s): XR DEXA axial skeleton Accession Number(s): [id number] cc: Shaikh Magui Denis; Renée Barry NP [address] [address] Patient Name: MAXIMUS STARKS MRN: [id number] date: 1945 Sex: F Assigned Patient Location: RAD Current Patient Location: RAD Accession/Order Number: [id number] Exam Date: 12/12/2023 12:57 Report Date: 12/12/2023 [...] M.D. Signed By:12/12/23 1348 DD/ 1346 TD/TT: Junior Web Developer: us Generic External Data Provider [facility] Final Result documented in this encounter Visit Diagnoses Not on filedocumented in this encounter Additional Health Concerns Assessment Noted Time PHQ-9 Depression Total Score: 1 09/06/20 23 2:00 PM EST documented as of this encounter Care Teams Entry Level Business Analyst Relationship Specialty Start Date End Date Shaikh Denis MD [address] [place] [address] PCP - General Internal Medicine 10/17/23 05/16/24 Renny Hansen MD [address] [facility] 110 [place] [address] PCP - General Internal Medicine 09/19/24 Renny Hansen MD [address] [facility] 110 [place] [address] PCP - Medical [facility] 09/12/2409/11 Jazmín Calvillo NP [address] [place] [address] Nurse Practitioner Family Medicine 05/17/24 09/18/24 Cindi Jenkins LSW Data Operations Manager Family Medicine 11/06/24 12/05/24 Lisa Ramirez LPN 12/05/24 documented as of this encounter
--- OUTSIDE RECORDS SUMMARY | 2025-02-21 14:10 | XMS_ITS | Encounter Summary ---
Author Organization [facility] Address [address] [facility] [place] [address] Care Team Providers Care Boner Meat Name Role Phone Shaikh BEREKET Denis Primary Care Provider [phone] Jamzín Calvillo BOOM TENDER Unavailable [phone] Renny Hansen MD Primary Care Provider [phone] Renny Hansen MD Unavailable [phone] Cindi Jenkins LEGUILLON DEBEADER Unavailable [phone] Lisa Ramirez LPN Unavailable Unavailable Encounter [...] week 08/30/2023 How often do you attend advent or yazidi serv ices? Patient declined 08/30/2023 Do you belong to any clubs o r organizations such as advent groups, unions, fraternal or athletic groups, or [...] Recorded Patient Health Questionnaire-2 Score 0 12/29/2023 [facility] of Occupat ional Health - [...] 05/16/2025 11:00 AM EDT Office Visit [facility] 112 [facility] 110 [place] [address] Renny Hansen MD 112 [facility] 110 [place] [address] documented as of this encounter Procedures Procedure Name Priority Date/Time Associated Diagnosis Comments XR SHOULDER 2+ VIEWS LEFT 02/22/2024 7:27 AM EDT documented in this encounter Results * XR shoulder 2+ views left (02/22/2024 7:27 AM EDT) Anatomical Region Laterality Modality Upper Extremities, Shoulder Left Radi ographic Imaging 02/22/2024 7:27 AM EDT Narrative 02/22/2024 7:30 AM EDT The [address] [address] XRay Report Signed Patient: MAXIMUS STARKS MR#: [id number] : 1945 Acct:[id number] Age/Sex: 78 / F ADM Date: 02/21/24 Loc: RAD Attending Dr: Mabel De León NP Ordering Physician: Mabel De León NP Date of Service: 02/21/24 Procedure(s): XR shoulder LT min 2V Accession Number(s): [id number] cc: Shaikh Magui Denis; Mabel De León NP The [place] [id number] Patient Name: MAXIMUS STARKS MRN: [id number] date: 1945 Sex: F Assigned Patient Location: RAD Current Patient Location: Accession/Order Number: [id number] Exam Date: 02/21/2024 17:48 Report Date: 02/22/2024 [...] Signed By: 02/22/24 0730 DD/ 0727 TD/TT: Catalyst Unit Operator: Procedure Note Radiology, Radiologist, MD - 02/22/2024 [place] [address] XRay Report Signed Patient: MAXIMUS STARKS TMR#: [id number] : 8Acct:[id number] Age/Sex: 78 / FADM Date: 02/21/24 Loc: RAD Attending Dr: Mabel De León NP Ordering Physician: Mabel De León NP Date of Service: 02/21/24 Procedure(s): XR shoulder LT min 2V Accession Number(s): [id number] cc: Shaikh Magui Denis; Mabel De León NP [place] [address] Patient Name: MAXIMUS STARKS MRN: [id number] date: 1945 Sex: F Assigned Patient Location: [facility] Current Patient Location: Accession/Order Number: [id number] Exam Date: 02/21/2024 17:48 Report Date: 02/22/2024 07:27 At the request of: MABEL DEL EÓN Procedure: XR shoulder LT min 2V PROCEDURE: [...] Alston M.D. Signed By:02/22/24729 DD/ 6 TD/TT: Catalyst Unit Operator: us Generic External Data Provider IMG XR PROCEDURES Final Result documented in this encounter Visit Diagnoses Not on filedocumented in this encounter Additional Health Concerns Assessment Noted Time PHQ-9 Depression Total Score: 1 09/06/20 23 2:00 PM EST documented as of this encounter Care Teams Boner Meat Relationship Specialty Start Date End Date Shaikh Denis MD [address] [place] [address] PCP - General Internal Medicine 10/17/23 05/16/24 Renny Hansen MD [address] [place] [address] PCP - General Internal Medicine 09/19/24 Renny Hansen MD [address] [facility] [address] [place] [address] PCP - Medical [place] 09/12/2409/11 Jazmín Calvillo NP [address] [facility] [place] [address] Nurse Practitioner Family Medicine 05/17/24 09/18/24 Cindi Jenkins LSW Grass Farm Laborer Family Medicine 11/06/24 12/05/24 Lisa Ramirez LPN 12/05/24 documented as of this encounter
--- OUTSIDE RECORDS SUMMARY | 2025-02-21 14:10 | XMS_ITS | Encounter Summary ---
Author Organization [facility] Address [address] [facility] [place] [address] Care Team Providers Care Customer Advocacy Manager Name Role Phone Renny Hansen MD Primary Care Provider [phone] Renny Hansen MD Unavailable [phone] Cindi Jenkins FENCE LABORER Unavailable [phone] Lisa Ramirez JACK TAMP OPERATOR Unavailable Unavailable Encounter Details Date Type Department Care Team (Late st Contact Info) Description 10/18/2024 Abstract [facility] 112 [facility] 110 [place] [address] Renny Hansen MD 112 [facility] 110 [place], [place] [address] Social History Tobacco Use Types Packs/Day Years [...] file 10/10/2024 How often do you attend congregational or mormon serv ices? Patient declined 10/10/2024 Do you belong to any clubs o r organizations such as congregational groups, unions, fraternal or athletic groups, or [...] Recorded Patient Health Questionnaire-2 Score 0 10/17/2024 [facility] of Occupat ional Health - Occupational Stress [...] a snf (including now)? Patient refused 08/30/2023 Housing Stability Vital Sign Answer Ananda e Recorded In the last 12 months, was t here a time when you were not able to pay the mortgage or rent on time? No 10/10/2024 Number of Times Moved in the Last Year Not on fi le 10/10/2024 At any time in the past 12 m [facility], were you homeless or living in a snf (including now)? No 10/10/2024 Comments Unknown Sex and Gender Information Value Date Recorded Sex Assigned at Not on file Legal Sex Female 6:35 PM EDT Gender Identity Not on file Sexual Orientation Not on file documented as of this encounter Plan of Treatment Upcoming Encounters Date Type Department Care Team (Late st Contact Info) Description 05/16/2025 11:00 AM EDT Office Visit [facility] 112 [facility] 110 [place] [address] Renny Hansen MD 112 [facility] 110 [place] [address] documented as of this encounter Visit Diagnoses Not on filedocumented in this encounter Additional Health Concerns Assessment Noted Time PHQ-9 Depression Total Score: 1 09/06/20 23 2:00 PM EST documented as of this encounter Care Teams Customer Advocacy Manager Relationship Specialty Start Date End Date Renny Hansen MD [address] [facility] 110 [place] [address] PCP - General Internal Medicine 09/19/24 Renny Hansen MD [address] [facility] 110 [place] [address] PCP - Medical [place] 09/12/2409/11 Cindi Jenkins LSW Grease Machine Worker Family Medicine 11/06/24 12/05/24 Lisa Ramirez LPN 12/05/24 documented as of this encounter
--- OUTSIDE RECORDS SUMMARY | 2025-02-21 14:10 | XMS_ITS | Encounter Summary ---
Author Organization [facility] Address [address] [facility] [place] [address] Care Team Providers Care Traffic Survey Technician Name Role Phone Renny Hansen MD Primary Care Provider [phone] Renny Hansen MD Unavailable [phone] Cindi Jenkins COMMAND POST SUPERINTENDENT Unavailable [phone] Lisa Ramirez LECTURER IN COMPUTER SCIENCE Unavailable Unavailable Encounter Details Date Type Department Care Team (Late st Contact Info) Description 09/26/2024 Abstract [facility] 112 [facility] 110 [place] [address] Renny Hansen MD 112 [facility] 110 [place] [address] Social History Tobacco Use Types [...] week 08/30/2023 How often do you attend congregational or jew serv ices? Patient declined 08/30/2023 [...] Patient Health Questionnaire-2 Score 0 05/31/2024 [facility] of Occupat ional [facility] - Occupational Stress Questionnaire Answer Date [...] place to sleep or slept in a detention (including now)? Patient refused 08/30/2023 Comments Unknown [...] WAY [facility] 110 [place] [address] Renny Hansen MD [address] [facility] 110 [place] [address] documented as of this encounter Visit Diagnoses Not on filedocumented in this encounter Additional Health Concerns Assessment Noted Time PHQ-9 Depression Total Score: 1 09/06/20 23 2:00 PM EST documented as of this encounter Care Teams Traffic Survey Technician Relationship Specialty Start Date End Date Renny Hansen MD [address] [facility] 110 [place] [address] PCP - General Internal Medicine 09/19/24 Renny Hansen MD [address] [facility] 110 [place] [address] PCP - Medical [place] 09/12/2409/11 Cindi Jenkins, COMMAND POST SUPERINTENDENT Splicer Helper Family Medicine 11/06/24 12/05/24 Lisa Ramirez LPN 12/05/24 documented as of this encounter
--- OUTSIDE RECORDS SUMMARY | 2025-02-21 14:10 | XMS_ITS | Encounter Summary ---
Author Organization [facility] Address [address] [place] [address] Care Team Providers Care Toe Pounder Name Role Phone Renny Hansen MD Primary Care Provider [phone] Balta Cardenas MD Unavailable [phone] Reason for Visit * Reason Onset Date Comments Med Refill 02/08/2025 Encounter Details Date Type Department Care Team (Late st Contact Info) Description 02/08/2025 Refill [facility] [address] [place] [address] Mg Xieah, MD Essential hypertension Social History Tobacco Use Types [...] Recorded Patient Health Questionnaire-2 Score 0 01/17/2025 Comments Unknown Sex and Gender Information Value Date Recorded Sex Assigned at Not on file Legal Sex Female 10:18 PM EDT Gender Identity Not on file Sexual Orientation Not on file documented as of this encounter Plan of Treatment Upcoming Encounters Date Type Department Care Team (Late st Contact Info) Description 05/15/2025 11:00 AM EDT Follow-Up [facility] Infectious Disease [address] [place] [address] Ortega Hines MD [address] [facility] [address] documented as of this encounter Visit Diagnoses Diagnosis Essential hypertension Unspecified essential hypertension documented in this encounter Care Teams Toe Pounder Relationship Specialty Start Date End Date Renny Hansen MD 112 [facility] 110 [place] [address] PCP - General Internal Medicine 07/18/24 Balta Cardenas MD [address] [place] [address] Referring Physician 11/15/24 documented as of this encounter
--- OUTSIDE RECORDS SUMMARY | 2025-02-21 14:10 | XMS_ITS | Encounter Summary ---
Author Organization [facility] Address [address] [place] [address] Care Team Providers Care Natural Sciences Professor Name Role Phone Shaikh BEREKET Denis Primary Care Provider [phone] Jazmín Calvillo POWER SWITCHBOARD OPERATOR Unavailable [phone] Renny Hansen MD Primary Care Provider [phone] Renny Hansen MD Unavailable [phone] Cindi Jenkins WOOL HAT HYDRAULICKER Unavailable [phone] Lisa Ramirez LPN Unavailable Unavailable Encounter Details Date Type Department Care Team (Late st Contact Info) Description 03/01/2024 Clinisync Result Encounter [facility] External Department Unsolicited Shaikh Denis MD [address] [place] [address] Social History Tobacco Use Types Packs/Day Years [...] week 08/30/2023 How often do you attend episcopal or yazidi serv ices? Patient declined 08/30/2023 Do you belong to any clubs o r organizations such as episcopal groups, unions, fraternal or athletic groups, or [...] Recorded Patient Health Questionnaire-2 Score 0 02/27/2024 [facility] of Occupat ional Health - Occupational [...] 05/16/2025 11:00 AM EDT Office Visit [facility] 112 [facility] 110 [place] [address] Renny Hansen MD 112 [facility] 110 [place] [address] documented as of this encounter Procedures Procedure Name Priority Date/Time Associated Diagnosis Comments XR CHEST 2V 03/01/2024 9:53 AM EDT documented in this encounter Results * XR CHEST 2V (03/01/2024 9:53 AM EDT) Anatomical Region Laterality Modality Other 03/01/2024 9:53 AM EDT Narrative 03/01/2024 9:56 AM EDT The [address] [address] XRay Report Signed Patient: BREANN STARKS MR#: [id number] : 1945 Acct:[id number] Age/Sex: 78 / F ADM Date: 02/29/24 Loc: CARD Attending Dr: Shaikh Cira Kilgore Ordering Physician: Shaikh Magui Denis Date of Service: 02/29/24 Procedure(s): XR chest 2V Accession Number(s): [id number] cc: Shaikh Magui Denis The [address] [address] Patient Name: BREANN STARKS MRN: [id number] date: 1945 Sex: F Assigned Patient Location: CARD Current Patient Location: LAB Accession/Order Number: [id number] Exam Date: 02/29/2024 10:05 Report Date: 03/01/2024 [...] Signed By: 03/01/24 0956 DD/ 0953 TD/TT: Release Coordinator: Procedure Note Radiology, Radiologist, MD - 03/01/[address] [address] XRay Report Signed Patient: BREANN STARKS TMR#: [id number] : 8Acct:[id number] Age/Sex: 78 / FADM Date: 02/29/24 Loc: CARD Attending Dr: Shaikh Cira Kilgore Ordering Physician: Shaikh Magui Denis Date of Service: 02/29/24 Procedure(s): XR chest 2V Accession Number(s): [id number] cc: Shaikh Magui Denis [facility] [address] [place], [place] [address] Patient Name: BREANN STARKS MRN: [id number] date: 1945 Sex: F Assigned Patient Location: CARD Current Patient Location: LAB Accession/Order Number: [id number] Exam Date: 02/29/2024 10:05 Report Date: 03/01/2024 [...] Mantilla M.D. Signed By:03/01/24 0956 DD/ TD/TT: Release Coordinator: us Shaikh Cira [facility] Final Result documented in this encounter Visit Diagnoses Not on filedocumented in this encounter Additional Health Concerns Assessment Noted Time PHQ-9 Depression Total Score: 1 09/06/20 23 2:00 PM EST documented as of this encounter Care Teams Natural Sciences Professor Relationship Specialty Start Date End Date Shaikh Denis MD [address] [place] [address] PCP - General Internal Medicine 10/17/23 05/16/24 Renny Hansen MD 112 [facility] 110 [place] [address] PCP - General Internal Medicine 09/19/24 Renny Hansen MD 112 [facility] 110 [place] [address] PCP - Medical [facility] 09/12/2409/11 Jazmín Calvillo NP [address] [place] [address] Nurse Practitioner Family Medicine 05/17/24 09/18/24 Cindi Jenkins LSW Medical Receptionist Assistant Family Medicine 11/06/24 12/05/24 Lisa Ramirez LPN 12/05/24 documented as of this encounter
--- OUTSIDE RECORDS SUMMARY | 2025-02-21 14:10 | XMS_ITS | Clinical Summary ---
Author Organization [facility] Address [address] [place] [address] Care Team Providers Care Email Marketing Specialist Name Role Phone Paulette Johnson MD Primary Care Provider [phone] Scott Cruz MD Unavailable Allergies Active Allergy [...] 2024 11/18/2020, 10/20/2020 Advance Directive Discussion 09/12/2024 Medicare Advantage Annual We llness Visit 09/12/2024 Influenza Vaccine (Season Ended) 2025 08/25/2023, 07/08/2022, 08/20/2021, Additional history exists Pneumococcal Vaccine: 50+ Completed 2020, 08/04/2020, 07/05/2017 RSV Vaccine Completed 08/25/2023 Insurance [employer] MEDICARE Care Teams Email Marketing Specialist Relationship Specialty Start Date End Date Paulette Johnson MD [address] [place] [address] PCP - General 01/05/06 Scott Cruz MD [address] [address] Referring Infectious Diseases 05/07/24
--- OUTSIDE RECORDS SUMMARY | 2025-02-21 14:10 | XMS_ITS | Encounter Summary ---
Author Organization [facility] Address [address] [facility] [place] [address] Care Team Providers Care Clerical Warehouse Worker Name Role Phone Shaikh BEREKET Denis Primary Care Provider [phone] Jazmín Calvillo INSPECTOR ADVANCED COMPOSITE Unavailable [phone] Renny Hansen MD Primary Care Provider [phone] Renny Hansen MD Unavailable [phone] Cindi Jenkins PROCESS COORDINATOR Unavailable [phone] Lisa Ramirez QUANTITATIVE CONSULTANT Unavailable Unavailable Encounter Details Date Type Department Care Team (Late st Contact Info) Description 12/12/2023 Orders Only [facility] [address] [place] [address] Kayley Reeder MD [address] [address] [place] [address] Social History Tobacco Use Types [...] week 08/30/2023 How often do you attend jewish or baptism serv ices? Patient declined 08/30/2023 Do you belong to any clubs o r organizations such as jewish groups, unions, fraternal or athletic groups, or [...] 05/16/2025 11:00 AM EDT Office Visit [facility] 112 [facility] 110 [place] [address] Renny Hansen MD 112 [facility] 110 [place] [address] documented as of this encounter Procedures Procedure [...] documented as of this encounter Care Teams Clerical Warehouse Worker Relationship Specialty Start Date End Date Shaikh Denis MD [address] [place] [address] PCP - General Internal Medicine 10/17/23 05/16/24 Renny Hansen MD 112 [facility] 110 [place] [address] PCP - General Internal Medicine 09/19/24 Renny Hansen MD 112 [facility] 110 [place] [address] PCP - Medical [facility] 09/12/2409/11 Jazmín Calvillo NP [address] [place] [address] Nurse Practitioner Family Medicine 05/17/24 09/18/24 Cindi Jenkins LSW Energy Economist Family Medicine 11/06/24 12/05/24 Lisa Ramirez LPN 12/05/24 documented as of this encounter
--- OUTSIDE RECORDS SUMMARY | 2025-02-21 14:10 | XMS_ITS | Encounter Summary ---
Author Organization [facility] Address [address] [place] [address] Care Team Providers Care Model Set Artist Name Role Phone Shaikh BEREKET Denis Primary Care Provider [phone] Jazmín Calvillo COOK CASHIER FOOD PREP Unavailable [phone] Renny Hansen MD Primary Care Provider [phone] Renny Hansen MD Unavailable [phone] Cindi Jenkins RN SUPPLEMENTAL Unavailable [phone] Lisa Ramirez BILLPOSTER Unavailable Unavailable Encounter Details Date Type Department Care Team (Late st Contact Info) Description 11/14/2023 [facility] [address] [place] [address] Shaikh Denis MD [address] [place] [address] Social History Tobacco Use Types Packs/Day Years [...] often do you attend jehovah's witness or anabaptist serv ices? Patient declined 08/30/2023 Do you [...] Recorded Patient Health Questionnaire-2 Score 0 11/07/2023 [facility] of Occupat ional Health - Occupational [...] group home (including now)? Patient refused 08/30/2023 Comments Unknown Sex and Gender Information Value Date Recorded Sex Assigned at Not on file Legal Sex Female 6:35 PM EDT Gender Identity Not on file Sexual Orientation Not on file documented as of this encounter Plan of Treatment Upcoming Encounters Date Type Department Care Team (Late st Contact Info) Description 05/16/2025 11:00 AM EDT Office Visit [facility] 112 [facility] 110 [place] [address] Renny Hansen MD 112 [facility] 110 [place] [address] documented as of this encounter Procedures Procedure [...] documented as of this encounter Care Teams Model Set Artist Relationship Specialty Start Date End Date Shaikh Denis MD [address] [place] [address] PCP - General Internal Medicine 10/17/23 05/16/24 Renny Hansen MD [address] [facility] 110 [place] [address] PCP - General Internal Medicine 09/19/24 Renny Hansen MD [address] [facility] 110 [place] [address] PCP - Medical [facility] 09/12/2409/11 Jazmín Calvillo NP [address] [place] [address] Nurse Practitioner Family Medicine 05/17/24 09/18/24 Cindi Jenkins LSW Senior Environmental Technician Family Medicine 11/06/24 12/05/24 Lisa Ramirez LPN 12/05/24 documented as of this encounter
--- OUTSIDE RECORDS SUMMARY | 2025-02-21 14:10 | XMS_ITS | Encounter Summary ---
Author Organization [facility] Address [address] [place] [address] Care Team Providers Care Flume Ride Operator Name Role Phone Renny Hansen MD Primary Care Provider [phone] Renny Hansen MD Unavailable [phone] Cindi Jenkins PACKING CHECKER Unavailable [phone] Lisa Ramirez LPN Unavailable Unavailable Encounter Details Date Type Department Care Team (Late st Contact Info) Description 10/16/2024 External Result Encounter [facility] External Department Unsolicited Dmitriy Duque, DO 7[address] [facility] 150 [place] [address] Social History Tobacco Use Types Packs/Day Years [...] file 10/10/2024 How often do you attend jain or caodaism serv ices? Patient declined 10/10/2024 Do you belong to any clubs o r organizations such as jain groups, unions, fraternal or athletic groups, or [...] Recorded Patient Health Questionnaire-2 Score 0 10/17/2024 [facility] of Occupat ional Health - [...] any time in the past 12 m [facility], were you homeless or living [...] CI FM [address] [place] [address] [place] [address] Renny Hansen MD 112 [facility] 110 [place] [address] documented as of this encounter Procedures Procedure [...] Benton Jr., D.OMeena10/16/2024 2:20 PM Dictation Location: [facility] Tech: Ghazal Barber Transcribed By: STAR 10/16/24 1420 Dictated By: Francisco J Benton Jr, DO 10/16/24 1343 Signed By: <Electronically signed by Francisco J Benton Jr, DO in OV> 10/16/24 1420 Narrative 10/16/2024 2:30 PM EST [facility] Main [place] [address] [place], [place] [address] Ultrasound Report Signed Patient: Breann Starks MR#: [id number] : 1945 Acct:[id number] Age/Sex: 78 / F ADM Date: 10/16/24 Loc: [facility] Room: Type: REG CLI Attending Dr: Dmitriy Duque DO Ordering Provider: Dmitriy Duque DO Date of Service: 10/16/24 US/US axilla: R92.8 ([id number]) MM/MM diagnostic mammo BI w/CAD: ENLARGED LT [...] Procedure Note Radiology, Radiologist, MD - 10/16/[address] [facility] Main [place] [address] [place] [address] Ultrasound Report Signed Patient: Breann Starks TMR#: [id number] : 8Acct:[id number] Age/Sex: 78 / FADM Date: 10/16/24 Loc: [facility] Room:Type: REG CLI Attending Dr: Dmitriy Duque DO Ordering Provider: Dmitriy Duque DO Date of Service: 10/16/24 US/US axilla: R92.8 ([id number]) MM/MM diagnostic mammo BI w/CAD: ENLARGED LT [...] Benton Jr., D.Jaleel10/16/2024 2:20 PM Dictation Location: [facility] Tech: Ghazal Wilson; Kadi Barber Transcribed By: PWS 10/16/24 1420 Dictated By: [...] documented as of this encounter Care Teams Flume Ride Operator Relationship Specialty Start Date End Date Renny Hansen MD [address] [facility] 110 [place] [address] PCP - General Internal Medicine 09/19/24 Renny Hansen MD [address] [facility] 110 [place] [address] PCP - Medical [place] 09/12/2409/11 Cindi Jenkins LSW [place] Actor Family Medicine 11/06/24 12/05/24 Lisa Ramirez LPN 12/05/24 documented as of this encounter
--- OUTSIDE RECORDS SUMMARY | 2025-02-21 14:10 | XMS_ITS | Encounter Summary ---
Author Organization [facility] Address [address] [facility] [address] Care Team Providers Care Kennel Keeper Name Role Phone Renny Hansen MD Primary Care Provider [phone] Renny Hansen MD Unavailable [phone] Lisa Ramirez LPN Unavailable Unavailable Encounter Details Date Type Department Care Team (Latest Contact Info) Description 02/18/2025 Travel Social History Tobacco Use Types Packs/Day [...] often do you attend chur ch or quaker services? Patient declined 11/12/2024 Do you belong to any clubs o r organizations such as catholic groups, unions, fraternal or athletic groups, [...] Recorded Patient Health Questionnaire-2 Score 0 02/18/2025 [facility] of Occupat ional Health - Occupational [...] care facility (including now)? Patient refused 08/30/2023 Housing Stability [...] any time in the past 12 m [facility], were you homeless or living in a [place] health care facility (including now)? No 11/12/2024 Comments Unknown Sex [...] hopeless Not at all 05/2025 11:24 AM EDGEOVANNY PAZ Patient Health Questionnaire-2 Score 0 05/2025 11:24 AM GEOVANNY BOWMAN documented as of this encounter Plan of Treatment Upcoming Encounters Date Type Department Care Team (Late st Contact Info) Description 05/16/2025 11:00 AM EDT Office Visit [facility] [address] [facility] 110 [place] [address] Renny Hansen MD [address] [facility] 110 [place] [address] documented as of this encounter Visit Diagnoses Not on filedocumented in this encounter Additional Health Concerns Assessment Noted Time PHQ-9 Depression Total Score: 1 09/06/20 23 2:00 PM EST documented as of this encounter Care Teams Kennel Keeper Relationship Specialty Start Date End Date Renny Hansen MD [address] [place] [address] [place], [place] [address] PCP - General Internal Medicine 09/19/24 Renny Hansen MD [address] [place] [address] [place], [place] [address] PCP - Medical [place] 09/12/2409/11 Lisa Ramirez LPN 12/05/24 documented as of this encounter
--- OUTSIDE RECORDS SUMMARY | 2025-02-21 14:10 | XMS_ITS | Encounter Summary ---
Author Organization [facility] Address [address] [facility] [place] [address] Care Team Providers Care Reinforcing Steel Machine Operator Name Role Phone Jazmín Calvillo RUBBER GOODS REPAIRER Unavailable [phone] Renny Hansen MD Primary Care Provider [phone] Renny Hansen MD Unavailable [phone] Cindi Jenkins JUNIOR ESTIMATOR Unavailable [phone] Lisa Ramirez PROTECTION AGENT Unavailable Unavailable Encounter Details Date Type Department Care Team (Late st Contact Info) Description 08/27/2024 Abstract [facility] CI FM [address] [place] [address] [place] [address] Unallocated, Noms Provider, [address] [place], [place] [address] Social History Tobacco Use Types Packs/Day Years [...] week 08/30/2023 How often do you attend mormon or mandaeism serv ices? Patient declined 08/30/2023 Do you belong to any clubs o r organizations such as mormon groups, unions, fraFortressware or athletic groups, or school groups? Yes [...] Recorded Patient Health Questionnaire-2 Score 0 05/31/2024 [facility] Occupat ional [facility] - Occupational Stress Questionnaire Answer Date Recorded [...] place to sleep or slept in a intermediate (including now)? Patient refused 08/30/2023 Comments Unknown [...] Visit [facility] CI FM [address] [facility] 110 [place] [address] Renny Hansen MD [address] [facility] 110 [place] [address] documented as of this encounter Visit Diagnoses Not on filedocumented in this encounter Additional Health Concerns Assessment Noted Time PHQ-9 Depression Total Score: 1 09/06/20 23 2:00 PM EST documented as of this encounter Care Teams Reinforcing Steel Machine Operator Relationship Specialty Start Date End Date Renny Hansen MD [address] [facility] 110 [place] [address] PCP - General Internal Medicine 09/19/24 Renny Hansen MD [address] [facility] 110 [place] [address] PCP - Medical [place] 09/12/2409/11 Jazmín Calvillo NP Nurse Practitioner Family Medicine 05/17/24 09/18/24 Cindi Jenkins LSW Electrician Chief Family Medicine 11/06/24 12/05/24 Lisa Ramirez LPN 12/05/24 documented as of this encounter
--- OUTSIDE RECORDS SUMMARY | 2025-02-21 14:10 | XMS_ITS | Clinical Summary ---
Author Organization [facility] Address [address] [facility] [place] [address] Phone Care Team Providers Care Qa Internship Name Role Phone Unavailable Primary Care Provider [...]
--- OUTSIDE RECORDS SUMMARY | 2025-02-21 14:10 | XMS_ITS | Encounter Summary ---
Author Organization [facility] Address [address] [place] [address] Care Team Providers Care Coal Miner Name Role Phone Renny Hansen MD Primary Care Provider [phone] Renny Hansen MD Unavailable [phone] Lisa Ramirez LPN Unavailable Unavailable Reason for Visit * Reason Onset Date Comments Med Refill 02/08/2025 Encounter Details Date Type Department Care Team (Late st Contact Info) Description 02/08/2025 Refill [facility] [address] [facility] [address] [place] [address] Renny Hansen MD 112 [facility] 110 [place] [address] Persistent atrial fibrillation (HCC) Social History Tobacco Use Types Packs/Day Years [...] often do you attend chur ch or presybeterian services? Patient declined 11/12/2024 Do you belong to any clubs o r organizations such as latter-day groups, unions, fraBrightFunnel or athletic groups, or school groups? No [...] Recorded Patient Health Questionnaire-2 Score 0 10/17/2024 [facility] of Occupat ional Health - Occupational Stress [...] any time in the past 12 m [facility], were you homeless or living in a senior care (including now)? No 11/12/2024 Comments Unknown Sex [...] EDT Office Visit [facility] 112 [facility] 110 [place] [address] Renny Hansen MD 112 [facility] 110 [place] [address] documented as of this encounter Visit Diagnoses Diagnosis Persistent atrial fibrillation (HCC) Atrial fibrillation documented in this encounter Additional Health Concerns Assessment Noted Time PHQ-9 Depression Total Score: 1 09/06/20 23 2:00 PM EST documented as of this encounter Care Teams Coal Miner Relationship Specialty Start Date End Date Renny Hansen MD 112 [facility] [address] [place] [address] PCP - General Internal Medicine 09/19/24 Renny Hansen MD 112 [facility] [address] [place] [address] PCP - Medical [place] MA 09/12/2409/11 Lisa Ramirez LPN 12/05/24 documented as of this encounter
--- OUTSIDE RECORDS SUMMARY | 2025-02-21 14:11 | XMS_ITS | Encounter Summary ---
Author Organization [facility] Address [address] [place] [address] Care Team Providers Care Fish Frog Or Oyster Farmer Name Role Phone Jazmín Calvillo DAY TRADER Unavailable [phone] Renny Hansen MD Primary Care Provider [phone] Renny Hansen MD Unavailable [phone] Cindi Jenkins MACHINE TOOL DESIGNER Unavailable [phone] Lisa Ramirez JANITOR HEAD Unavailable Unavailable Encounter Details Date Type Department Care Team (Late st Contact Info) Description 07/24/2024 [facility] [address] [place] [address] Wesley Long MD [address] [place] [address] Social History Tobacco Use Types Packs/Day Years [...] week 08/30/2023 How often do you attend jain or oriental orthodox serv ices? Patient declined 08/30/2023 Do you [...] Recorded Patient Health Questionnaire-2 Score 0 05/31/2024 [facility] of Occupat ional Health - [...] EDT Office Visit [facility] [address] [facility] 110 [place] [address] Renny Hansen MD [address] [facility] 110 [place] [address] documented as of this encounter Visit Diagnoses Not on filedocumented in this encounter Additional Health Concerns Assessment Noted Time PHQ-9 Depression Total Score: 1 09/06/20 23 2:00 PM EST documented as of this encounter Care Teams Fish Frog Or Oyster Farmer Relationship Specialty Start Date End Date Renny Hansen MD [address] [facility] [address] [place] [address] PCP - General Internal Medicine 09/19/24 Renny Hansen MD [address] [address] PCP - Medical [place] MA 09/12/2409/11 Jazmín Calvillo NP Nurse Practitioner Family Medicine 05/17/24 09/18/24 Cindi Jenkins LSW Wall Taper Helper Family Medicine 11/06/24 12/05/24 Lisa Ramirez LPN 12/05/24 documented as of this encounter
--- OUTSIDE RECORDS SUMMARY | 2025-02-21 14:11 | XMS_ITS | Referral Summary ---
Author Organization [facility] Address [address] [place] [address] Care Team Providers Care Mud Jack Nozzleman Name Role Phone Renny Hansen MD Primary Care Provider [phone] Balta Cardenas MD Unavailable [phone] Encounters Date Type Department Care Team Description 02/20/2025 11:00 AM EDT Follow-Up [facility] Infectious Disease [address] [place] [phone] Ortega Hines MD Pain in joint of left shoulder 02/08/2025 Refill [place] [address] [place] [address] Tina Xie MA Essential hypertension 01/22/2025 3:00 PM EDT Ancillary Procedure [place] [address] [place] [address] Encounter for implantable defibrillator reprogramming or check 01/18/[address] [facility] Infectious Disease [address] [place] [phone] Ortega Hines MD 01/17/[address] [facility] Dermatology [address] [place] [address] Purnima Quintero MA Pain in joint of left shoulder 01/17/2025 10:00 AM EDT Office Visit 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, unspecified complication, subsequent encounter (Primary Dx); Pain in joint of left shoulder 12/28/2024 Telephone [facility] [address] [place] [facility] [place] [address] Roopa Mensah MA 12/28/2024 Refill [facility] [address] [place] [facility] [place] [address] Roopa Mensah MA Chronic diastolic heart failure (CMS/HCC) 12/28/2024 Refill [facility] [address] [place] [facility] [place] [address] Roopa Mensah MA Paroxysmal atrial fibrillation (CMS/HCC) 12/24/2024 1:40 PM EDT Office Visit [facility] [address] [place] [facility] [place] [address] Kellie Alva MD Paroxysmal A-fib (CMS/HCC) (Primary Dx); Sinus node dysfunction (CMS/HCC); Cardiac pacemaker in situ; Atherosclerosis of [place] coronary artery of [place] heart without angina pectoris; Pulmonary hypertension (CMS/HCC); Venous insufficiency; Chronic diastolic congestive heart failure (CMS/HCC); Pure hypercholesterolemia 12/04/2024 Refill [facility] [address] [place] [address] Ingrid Cannon CNP Paroxysmal atrial fibrillation (CMS/HCC) 11/27/2024 1:30 PM EDT [facility] [address] [place] [address] [place] [phone] Pain in joint of left shoulder 11/27/2024 1:00 PM EDT Follow-Up [facility] Orthopaedics [address] [place] [address] [place] [address] Jan Albert MD Pain in joint of left shoulder (Primary Dx) from Last 3 Months Allergies No known active allergies Medications cholecalciferol (Vitamin D-3) 125 MCG (5000 UT) capsule Take 1 tablet by mouth in the morning. Active spironolactone (Aldactone) 25 mg tabletIndication s:Edema, unspecified TAKE 1 TABLET BY MOUTH EVERY DAY 90 tablet 3 3 Active Eliquis 5 mg tablet Take 5 mg by mouth every 12 (twelve) hours. 3 Active furosemide (Lasix) 40 mg tabletIndication s:Benign hypertensive heart disease with heart failure (CMS/HCC) Take 1 tablet (40 mg) by mouth in the morning and at bedtime. 180 tablet 3 4 03/06/20 25 Active baclofen (Lioresal) 10 mg tablet Take 1 tablet by mouth every 6 (six) hours during the day. 4 Active omeprazole (PriLOSEC) [address] capsule Take 1 capsule by mouth in the morning. 4 Active flecainide (Tambocor) 100 mg tabletIndication s:Paroxysmal atrial fibrillation (CMS/HCC) Take 1 tablet (100 mg) by mouth Twice daily at 6am and 6pm. 180 tablet 3 5 Active spironolactone (Aldactone) 50 mg tabletIndication s:Chronic diastolic heart failure (CMS/HCC) Take 1 tablet (50 mg) by mouth in the morning. 90 tablet 3 5 12/29/19 26 Active penicillin v potassium (Veetid) 500 mg tabletIndication s:Pain in joint of left shoulder Take 1 tablet (500 mg) by mouth four times daily. 40 tablet 4 5 03/08/20 25 Active verapamil ER (Veralan) 180 mg 24 hr capsuleIndicatio ns:Essential hypertension Take 2 capsules (360 mg) by mouth once daily as directed. Do not crush or chew. 180 capsule 3 5 Active penicillin v potassium (Veetid) 500 mg tabletIndication s:Pain in joint of left shoulder Take 1 tablet (500 mg) by mouth three times daily. 270 tablet 5 05/21/20 25 Active penicillin v potassium (Veetid) 500 mg tabletIndication s:Pain in joint of left shoulder Take 1 tablet (500 mg) by mouth three times daily. 240 tablet 1 5 05/21/20 25 Active verapamil ER (Veralan) 180 mg 24 hr capsuleIndicatio ns:Essential hypertension TAKE 2 CAPSULES BY MOUTH IN THE MORNING. 180 capsule 3 4 02/09/20 25 Discontinu ed(Reorder ) penicillin v potassium (Veetid) 500 mg tabletIndication s:Pain in joint of left shoulder Take 1 tablet (500 mg) by mouth four times daily. 240 tablet 1 5 02/21/20 25 Discontinu ed(Reorder ) Active Problems Problem Noted Date Diagnosed Date [...] shoulder 11/07/202301/16 Impingement syndrome of right shoulder 4 01/17/2024 Shoulder pain 10/17/2023 Acute pain of [...] get device check to assess AF burden -[id number] 3 -Continue Xarelto 20 mg daily, continue propafenone to 25 mg 3 times a day Sinus node dysfunction 10/07/2020 Assessment & Plan (11/18/2022 10:55 AM EST): - S/p PPM [employer] -We will have her scheduled for [...] Chronic obstructive lung disease 01/12/2012 Atherosclerosis of [place] co ronary artery of [place] heart without angina pectoris 01/12/2012 Assessment & Plan (11/18/2022 10:53 AM EST): Coronary artery disease is stable -no CP or LEA -last cath 2010, mild disease no PCI / stent -continue medications Diaphragmatic hernia 01/12/2012 Edema 01/12/2012 Paroxysmal supraventricular tachycardia 01/12/20 12 Resolved Problems Problem Noted Date Diagnosed Date Resolved Date Acute on chronic diastolic ( congestive) heart failure 02/27/2024 12/24/2024 Immunizations Immunization Administration Dates Next Due Influenza, [...] Pulse 79 02/20/2025 11:24 AM EDT Temperature 36.9 C (98.4 F) 01/17/2025 9:52 AM EDT Respiratory Rate - - Oxygen Saturation 97% 12/24/2024 1:32 PM EDT Inhaled Oxygen Concentration - - Weight 97.5 kg (215 lb) 02/20/2025 11:24 AM EDT Height 149.9 cm (4' 11 ) 01/17/2025 9:52 AM EDT Body Mass Index 43.42 01/17/2025 9:52 AM EDT Plan of Treatment Upcoming Encounters Date Type Department Care Team (Late st Contact Info) Description 05/15/2025 11:00 AM EDT Follow-Up [facility] Infectious Disease [address] [place] [address] Ortega Hines MD [address] [facility] [place] [address] Procedures Procedure Name Priority Date/Time [...] EDT Pain in joint of left shoulder from [...] as per schedule. Please see attached note us Dmitriy Mahan MD CV IMPLANTABLE CARDIAC DEVICE ND OCEDURES Final Result * (ABNORMAL) CBC auto differential (01/17/2025 11:19 AM EDT) Only the most recent of2 resultswithin the time period is included. Auto WBC 7.39 4.00 - 10.60 10*3/uL 01/17/2025 5:59 PM EDT [facility] ([facility]) RBC 3.91 3.80 - 5.00 10*6/uL 01/17/2025 5:59 PM EDT [facility] ([facility]) Hemoglobin 9.8(L) 12.0 - 15.0 g/dL 01/17/2025 5:59 PM EDT [facility] ([facility]) Hematocrit 33.1(L) 36.0 - 45.0 % 01/17/2025 5:59 PM EDT [facility] ([facility]) MCV 84.7 82.0 - 98.0 fL 01/17/2025 5:59 PM EDT [facility] ([facility]) MCH 25.1(L) 27.0 - 33.0 pg 01/17/2025 5:59 PM EDT [facility] ([facility]) MCHC 29.6(L) 32.0 - 35.0 g/dL 01/17/2025 5:59 PM EDT [facility] ([facility]) RDW 18.4(H) 11.5 - 15.0 % 01/17/2025 5:59 PM EDT [facility] ([facility]) Neutrophils % 71.9 40.0 - 72.0 % 01/17/2025 5:59 PM EDT [facility] ([facility]) Lymphocytes % 17.9(L) 20.0 - 45.0 % 01/17/2025 5:59 PM EDT [facility] ([facility]) Monocytes % 6.8 5.0 - 12.0 % 01/17/2025 5:59 PM EDT [facility] ([facility]) Eosinophils % 2.2 0.0 - 6.0 % 01/17/2025 5:59 PM EDT [facility] ([facility]) Basophils % 0.9 0.0 - 1.0 % 01/17/2025 5:59 PM EDT [facility] ([facility]) Neutrophils Absolute 5.32 1.60 - 7.60 10*3/uL 01/17/2025 5:59 PM EDT [facility] ([facility]) Lymphocytes Absolute 1.32 1.20 - 4.00 10*3/uL 01/17/2025 5:59 PM EDT [facility] ([facility]) Monocytes Absolute 0.50 0.10 - 1.00 10*3/uL 01/17/2025 5:59 PM EDT [facility] ([facility]) Eosinophils Absolute 0.16 0.00 - 0.50 10*3/uL 01/17/2025 5:59 PM EDT [facility] ([facility]) Basophils Absolute 0.07 0.00 - 0.20 10*3/uL 01/17/2025 5:59 PM EDT [facility] ([facility]) Platelets 338 150 - 400 10*3/uL 01/17/2025 5:59 PM EDT [facility] ([facility]) nRBC % 0.0 0 % 01/17/2025 5:59 PM EDT [facility] ([facility]) Immature Granulocytes % 0.3 0.0 - 1.0 % 01/17/2025 5:59 PM EDT [facility] ([facility]) Immature Granulocytes Absolute 0.02 0.00 - 0.20 10*3/uL 01/17/2025 5:59 PM EDT [facility] ([facility]) Blood Venous blood specimen / Unknown Venipuncture / Unknown 01/17/2025 11:19 AM EDT 01/17/2025 11:19 AM EDT us Ortega Hines MD LAB BLOOD ORDERABLES Final Resu lt [facility]) [address] [place] [address] * (ABNORMAL) C-reactive protein (01/17/2025 11:19 AM EDT) Only the most recent of2 resultswithin the time period is included. CRP 6.8(H) <=5.0 mg/L 01/18/2025 3:12 PM EDT [facility] ([facility]) Comment:Testing performed us ing a new methodology, turbidimetry. Normal ranges have been updated. Old normal range was <8 mg/L. Blood Venous blood specimen / Unknown Venipuncture / Unknown 01/17/2025 11:19 AM EDT 01/17/2025 11:19 AM EDT us Ortega Hines MD LAB BLOOD ORDERABLES Final Resu lt [facility] ([facility]) [address] [place] [address] * (ABNORMAL) Basic metabolic panel (01/17/2025 11:19 AM EDT) Sodium 135(L) 136 - 145 mmol/L 01/17/2025 5:04 PM EDT [facility] ([facility]) Potassium 4.1 3.5 - 5.1 mmol/L 01/17/2025 5:04 PM EDT [facility] ([facility]) Chloride 103 98 - 107 mmol/L 01/17/2025 5:04 PM EDT [facility] ([facility]) CO2 26 21 - 31 mmol/L 01/17/2025 5:04 PM EDT [facility] ([facility]) BUN 17 7 - 25 mg/dL 01/17/2025 5:04 PM EDT [facility] ([facility]) Creatinine 0.64 0.60 - 1.20 mg/dL 01/17/2025 5:04 PM EDT [facility] ([facility]) Glucose 92 70 - 100 mg/dL 01/17/2025 5:04 PM EDT [facility] ([facility]) Calcium 8.9 8.6 - 10.3 mg/dL 01/17/2025 5:04 PM EDT [facility] ([facility]) Anion Gap 10 7 - 20 mmol/L 01/17/2025 5:04 PM EDT [facility] ([facility]) eGFR 91.0 >60.0 mL/min/1. 73m*2 01/17/2025 5:04 PM EDT [facility] ([facility]) Comment:[facility] s estimated glomerular filtration rate (eGFR) [...] Ratio 26.6 05/0 04/2025 5:04 PM EDT [facility] ([facility]) Blood Venous blood specimen / Unknown Venipuncture / Unknown 01/17/2025 11:19 AM EDT 01/17/2025 11:19 AM EDT us Ortega Hines MD LAB BLOOD ORDERABLES Final Resu lt Performing Organization Address City/[facility]/ZIP Co de Phone Number [facility]) [address] [place] [address] * (ABNORMAL) Sedimentation rate (11/27/2024 1:27 PM EDT) Sed Rate 96(H) <30 mm/hr 11/27/2024 3:4 0 PM EDT [facility]) Blood Venous blood specimen / Unknown Venipuncture / Unknown 11/27/2024 1:27 PM EDT 11/27/2024 3:16 PM EDT us Jan Albert MD LAB BLOOD ORDERABLES Final Resul t Performing Organization Address City/[facility]/ZIP Co de Phone Number [facility]) [address] [place] [address] from Last 3 Months Insurance [facility] MEDICARE Care Teams Mud Jack Nozzleman Relationship Specialty Start Date End Date Renny Hansen MD [address] [facility] [address] [place] [address] PCP - General Internal Medicine 07/18/24 Balta Cardenas MD [address] [place] [address] Referring Physician 11/15/24
--- OUTSIDE RECORDS SUMMARY | 2025-02-21 14:11 | XMS_ITS | Encounter Summary ---
Author Organization [facility] Address [address] [place] [address] Care Team Providers Care Plumbing And Heating Contractor Name Role Phone Renny Hansen MD Primary Care Provider [phone] Renny Hansen MD Unavailable [phone] Cindi Jenkins TRIM STENCIL MAKER Unavailable [phone] Lisa Ramirez LPN Unavailable Unavailable Encounter Details Date Type Department Care Team (Late st Contact Info) Description 10/02/2024 External Result Encounter [facility] External Department Unsolicited Katharina Toledo, CAR SUPPLIER [address] [place] [address] Social History Tobacco Use Types Packs/Day Years [...] week 08/30/2023 How often do you attend druze or congregation serv ices? Patient declined 08/30/2023 Do you belong to any clubs o r organizations such as druze groups, unions, fraternal or athletic groups, or [...] Recorded Patient Health Questionnaire-2 Score 0 05/31/2024 [facility] of Occupat ional Health - Occupational [...] 05/16/2025 11:00 AM EDT Office Visit [facility] [address] [facility] 110 [place] [address] Renny Hansen MD 112 [facility] 110 [place] [address] documented as of this encounter Procedures Procedure [...] 10/02/24 1614 Narrative 10/02/2024 4:17 PM EST [facility] [place] [address] [place] [address] CT Scan Report Signed Patient: Breann Starks MR#: [id number] : 1945 Acct:[id number] Age/Sex: 78 / F ADM Date: 10/02/24 Loc: XT Room: Type: REG RCR Attending Dr: Katharina Toledo HORSERADISH GRINDER Copies to: Katharina Toledo APRN Ordering Provider: [...] Procedure Note Radiology, Radiologist, MD - 10/02/2024 [facility] [place] [address] [place], [place] [id number] CT Scan Report Signed Patient: Breann Starks TMR#: [id number] : 8Acct:[id number] Age/Sex: 78 / FADM Date: 10/02/24 Loc: XT Room:Type: REG RCR Attending Dr: Katharina Toledo HORSERADISH GRINDER Copies to: Katharina Toledo APRN Ordering Provider: [...] Etienne Rhodes M.D.10/02/2024 4:14 PM Dictation Location: [place] [address] Transcribed By: [facility] 10/02/24 1614 Dictated By: Etienne Rhodes DO 10/02/24 1610 Signed By: <Electronically signed by Etienne Rhodes DO in OV> 10/02/24 1614 us Katharina Toledo CAR SUPPLIER IMG CT PROCEDURES Final Resul t documented in this encounter Visit Diagnoses Not on filedocumented in this encounter Additional Health Concerns Assessment Noted Time PHQ-9 Depression Total Score: 1 09/06/20 23 2:00 PM EST documented as of this encounter Care Teams Plumbing And Heating Contractor Relationship Specialty Start Date End Date Renny Hansen MD [address] [facility] [address] [place] [address] PCP - General Internal Medicine 09/19/24 Renny Hansen MD [address] [facility] [address] [place] [address] PCP - Medical [facility] 09/12/2409/11 Cindi Jenkins LSW Appeals Coordinator Family Medicine 11/06/24 12/05/24 Lisa Ramirez LPN 12/05/24 documented as of this encounter
--- OUTSIDE RECORDS SUMMARY | 2025-02-21 14:11 | XMS_ITS | Encounter Summary ---
Author Organization [facility] Address [address] [place] [address] Care Team Providers Care Development Coach Name Role Phone Jazmín Calvillo PHOTO CHECKER Unavailable [phone] Renny Hansen MD Primary Care Provider [phone] Renny Hansen MD Unavailable [phone] Cindi Jenkins INDUSTRIAL GAS SERVICER HELPER Unavailable [phone] Lisa Ramirez [employer] DIRECTOR Unavailable Unavailable Encounter Details Date Type Department Care Team (Late st Contact Info) Description 08/08/2024 Clinisync Result Encounter [facility] External Department Unsolicited Renny Hansen MD [address] [facility] [address] [place] [address] Social History Tobacco Use Types Packs/Day Years [...] week 08/30/2023 How often do you attend rastafari or buddhism serv ices? Patient declined 08/30/2023 Do you belong to any clubs o r organizations such as rastafari groups, unions, fraIntegrity Tracking or athletic groups, or school groups? Yes [...] Recorded Patient Health Questionnaire-2 Score 0 05/31/2024 [facility] - Occupational Stress Questionnaire Answer Date [...] AM EDT Office Visit [facility] 112 [facility] 110 [place] [address] Renny Hansen MD [address] [facility] [address] [place] [address] documented as of this encounter Procedures Procedure Name Priority Date/Time Associated Diagnosis Comments XR CINERADIOGRAPHY 08/08/2024 6: 31 AM EST documented in this encounter Results * XR CINERADIOGRAPHY (08/08/2024 6:31 AM EST) Anatomical Region Laterality Modality Other 08/08/2024 6:31 AM EST Narrative 08/08/2024 6:33 AM EST The [address] [address] Fluoroscopy Report Signed Patient: BREANN HERRMANN MR#: [id number] : 1945 Acct:[id number] Age/Sex: 78 / F ADM Date: 08/07/24 Loc: [place] Attending Dr: RENNY HANSEN Ordering Physician: RENNY HANSEN Date of Service: 08/07/24 Procedure(s): FL cineradiography Accession Number(s): [id number] cc: RENNY HANSEN The [place] [address] Patient Name: BREANN HERRMANN MRN: [facility]:[id number] date: 1945 Sex: F Assigned Patient Location: [place] Current Patient Location: Accession/Order Number: [id number] Exam Date: 08/07/2024 08:45 Report Date: 08/08/2024 [...] M.D. Signed By: 08/08/24632 DD/ 0 TD/TT: Resident Intern: Procedure Note Radiology, Radiologist, MD - 08/08/2024 [place] [address] Fluoroscopy Report Signed Patient: BREANN HERRMANN TMR#: [id number] : 8Acct:[id number] Age/Sex: 78 / FADM Date: 08/07/24 Loc: [place] Attending Dr: RENNY HANSEN Ordering Physician: RENNY HANSEN Date of Service: 08/07/24 Procedure(s): FL cineradiography Accession Number(s): [id number] cc: RENNY HANSEN [place] [id number] Patient Name: BREANN HERRMANN MRN: [id number] date: 1945 Sex: F Assigned Patient Location: [place] Current Patient Location: Accession/Order Number: [id number] Exam Date: 08/07/2024 08:45 Report Date: 08/08/2024 [...] Delgado M.D. Signed By:08/08/24632 DD/ 0 TD/TT: Resident Intern: Renny Hansen MD [facility] Final Result documented in this encounter Visit Diagnoses Not on filedocumented in this encounter Additional Health Concerns Assessment Noted Time PHQ-9 Depression Total Score: 1 09/06/20 23 2:00 PM EST documented as of this encounter Care Teams Development Coach Relationship Specialty Start Date End Date Renny Hansen MD [address] [facility] [address] [place] [address] PCP - General Internal Medicine 09/19/24 Renny Hansen MD [address] [facility] [address] [place] [address] PCP - Medical Easley ROX 09/12/2409/11 Jazmín Calvillo NP Nurse Practitioner Family Medicine 05/17/24 09/18/24 Cindi Jenkins LSW Tumbler Machine Operator Helper Family Medicine 11/06/24 12/05/24 Lisa Ramirez LPN 12/05/24 documented as of this encounter
--- OUTSIDE RECORDS SUMMARY | 2025-02-21 14:11 | XMS_ITS | Clinical Summary ---
Author Organization [facility] Address [address] [place] [address] Care Team Providers Care Airport Operations Coordinator Name Role Phone Renny Hansen MD Primary Care Provider [phone] Balta Cardenas MD Unavailable [phone] Allergies No known active allergies Medications cholecalciferol [...] get device check to assess AF burden -[id number] 3 -Continue Xarelto 20 mg daily, continue propafenone to 25 mg 3 times a day Sinus node dysfunction 10/07/2020 Assessment & Plan (11/18/2022 10:55 AM EST): - S/p PPM [employer] -We will have her scheduled for [...] Chronic obstructive lung disease 01/12/2012 Atherosclerosis of [place] co ronary artery of [place] heart without angina pectoris 01/12/2012 Assessment & [...] Team Description 02/20/2025 11:00 AM EDT Follow-Up [facility] Infectious Disease [address] [place] [phone] Ortega Hines MD Pain in joint of left shoulder 02/08/2025 Refill [facility] [place] [facility] [place] [address] [place] [address] Tina Xie MA Essential hypertension 01/22/2025 3:00 PM EDT Ancillary Procedure [place] [address] [place] [facility] [place] [address] Encounter for implantable defibrillator reprogramming or check 01/18/2025 Telephone [facility] Infectious Disease [address] [place] [phone] Ortega Hines MD 01/17/2025 10:00 AM EDT Office Visit 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 Dermatology [address] [place] [phone] Purnima Quintero MA Pain in joint of left shoulder 01/07/2025 Telephone 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, unspecified complication, subsequent encounter (Primary Dx); Pain in joint of left shoulder 12/28/2024 Telephone [facility] [address] [place] [facility] [place] [address] Roopa Mensah MA 12/28/2024 Refill [place] [address] [place] [address] Roopa Mensah MA Chronic diastolic heart failure (CMS/HCC) 12/28/2024 Refill [facility] [address] [place] [facility] [place] [address] Roopa Mensah MA Paroxysmal atrial fibrillation (CMS/HCC) 12/24/2024 1:40 PM EDT Office Visit [facility] [address] [place] [facility] [place] [address] Kellie Alva MD Paroxysmal A-fib (CMS/HCC) (Primary Dx); Sinus node dysfunction (CMS/HCC); Cardiac pacemaker in situ; Atherosclerosis of [place] coronary artery of [place] heart without angina pectoris; Pulmonary hypertension (CMS/HCC); Venous insufficiency; Chronic diastolic congestive heart failure (CMS/HCC); Pure hypercholesterolemia 12/04/2024 Refill [facility] Cardiology [address] [place] [address] Ingrid Cannon CNP Paroxysmal atrial fibrillation (CMS/HCC) 11/27/2024 1:30 PM EDT [facility] [address] [place] [address] [place] [phone] Pain in joint of left shoulder 11/27/2024 1:00 PM EDT Follow-Up [facility] Orthopaedics [address] [place] [address] [place] [phone] Jan Albert MD Pain in joint of left shoulder (Primary Dx) from Last 3 Months Immunizations Immunization Administration [...] Info) Description 05/15/2025 11:00 AM EDT Follow-Up [facility] Infectious Disease [address] [place] [address] Ortega Hines MD [address] [facility] [address] Health Maintenance Due Date Last Done Comments Medicare Annual Wellness (AWV) 1945 Adult Tetanus 11/30/1969 Zoster Vaccines (1 of 2) 11/30/1997 COVID-19 Vaccine ( season) 2024 11/18/2020, 11/18/2020, 10/20/2020, Additional history exists Depression Screening 02/20/2026 02/20/2025 Fall Risk Screening 02/20/2026 02/20/2025 Pneumococcal Vaccine: 50+ Years Completed 08/20/2021, 08/04/2020, 07/05/2017 Influenza Vaccine [...] Dmitriy Mahan MD CV IMPLANTABLE CARDIAC DEVICE FL OCEDURES Final Result * (ABNORMAL) CBC auto differential (01/17/2025 11:19 AM EDT) Only the most recent of2 resultswithin the time period is included. Auto WBC 7.39 4.00 - 10.60 10*3/uL 01/17/2025 5:59 PM EDT [facility]) RBC 3.91 3.80 - 5.00 10*6/uL 01/17/2025 5:59 PM EDT [facility]) Hemoglobin 9.8(L) 12.0 - 15.0 g/dL 01/17/2025 5:59 PM EDT [facility]) Hematocrit 33.1(L) 36.0 - 45.0 % 01/17/2025 5:59 PM EDT [facility]) MCV 84.7 82.0 - 98.0 fL 01/17/2025 5:59 PM EDT [facility]) MCH 25.1(L) 27.0 - 33.0 pg 01/17/2025 5:59 PM EDT [facility]) MCHC 29.6(L) 32.0 - 35.0 g/dL 01/17/2025 5:59 PM EDT [facility]) RDW 18.4(H) 11.5 - 15.0 % 01/17/2025 5:59 PM EDT [facility]) Neutrophils % 71.9 40.0 - 72.0 % 01/17/2025 5:59 PM EDT [facility]) Lymphocytes % 17.9(L) 20.0 - 45.0 % 01/17/2025 5:59 PM EDT [facility]) Monocytes % 6.8 5.0 - 12.0 % 01/17/2025 5:59 PM EDT [facility]) Eosinophils % 2.2 0.0 - 6.0 % 01/17/2025 5:59 PM EDT [facility]) Basophils % 0.9 0.0 - 1.0 % 01/17/2025 5:59 PM EDT [facility]) Neutrophils Absolute 5.32 1.60 - 7.60 10*3/uL 01/17/2025 5:59 PM EDT [facility]) Lymphocytes Absolute 1.32 1.20 - 4.00 10*3/uL 01/17/2025 5:59 PM EDT [facility]) Monocytes Absolute 0.50 0.10 - 1.00 10*3/uL 01/17/2025 5:59 PM EDT [facility]) Eosinophils Absolute 0.16 0.00 - 0.50 10*3/uL 01/17/2025 5:59 PM EDT [facility]) Basophils Absolute 0.07 0.00 - 0.20 10*3/uL 01/17/2025 5:59 PM EDT [facility]) Platelets 338 150 - 400 10*3/uL 01/17/2025 5:59 PM EDT [facility] ([facility]) nRBC % 0.0 0 % 01/17/2025 5:59 PM EDT [facility]) Immature Granulocytes % 0.3 0.0 - 1.0 % 01/17/2025 5:59 PM EDT [facility]) Immature Granulocytes Absolute 0.02 0.00 - 0.20 10*3/uL 01/17/2025 5:59 PM EDT [facility]) Blood Venous blood specimen / Unknown Venipuncture / Unknown 01/17/2025 11:19 AM EDT 01/17/2025 11:19 AM EDT us Ortega Hines MD LAB BLOOD ORDERABLES Final Resu lt Performing Organization Address City/[facility] [place] [facility] Co de Phone Number [facility]) [address] [place] [address] * (ABNORMAL) C-reactive protein (01/17/2025 11:19 AM EDT) Only the most recent of2 resultswithin the time period is included. CRP 6.8(H) <=5.0 mg/L 01/18/2025 3:12 PM EDT [facility]) Comment:Testing performed us ing a new methodology, turbidimetry. Normal ranges have been updated. Old normal range was <8 mg/L. Blood Venous blood specimen / Unknown Venipuncture / Unknown 01/17/2025 11:19 AM EDT 01/17/2025 11:19 AM EDT us Ortega Hines MD LAB BLOOD ORDERABLES Final Resu lt Performing Organization Address City/[facility] [place] [facility]/ZIP Co de Phone Number [facility]) [address] [place] [address] * (ABNORMAL) Basic metabolic panel (01/17/2025 11:19 AM EDT) Sodium 135(L) 136 - 145 mmol/L 01/17/2025 5:04 PM EDT [facility]) Potassium 4.1 3.5 - 5.1 mmol/L 01/17/2025 5:04 PM EDT [facility]) Chloride 103 98 - 107 mmol/L 01/17/2025 5:04 PM EDT [facility]) CO2 26 21 - 31 mmol/L 01/17/2025 5:04 PM EDT [facility]) BUN 17 7 - 25 mg/dL 01/17/2025 5:04 PM EDT [facility]) Creatinine 0.64 0.60 - 1.20 mg/dL 01/17/2025 5:04 PM EDT [facility]) Glucose 92 70 - 100 mg/dL 01/17/2025 5:04 PM EDT [facility]) Calcium 8.9 8.6 - 10.3 mg/dL 01/17/2025 5:04 PM EDT [facility]) Anion Gap 10 7 - 20 mmol/L 01/17/2025 5:04 PM EDT [facility]) eGFR 91.0 >60.0 mL/min/1. 73m*2 01/17/2025 5:04 PM EDT [facility]) Comment:[facility] s estimated glomerular filtration rate (eGFR) [...] BUN/Creatinine Ratio 26.6 04/2025 5:04 PM EDT [facility]) Blood Venous blood specimen / Unknown Venipuncture / Unknown 01/17/2025 11:19 AM EDT 01/17/2025 11:19 AM EDT us Ortega Hines MD LAB BLOOD ORDERABLES Final Resu lt [facility]) [address] [place] [address] * (ABNORMAL) Sedimentation rate (11/27/2024 1:27 PM EDT) Sed Rate 96(H) <30 mm/hr 11/27/2024 3:4 0 PM EDT [facility]) Blood Venous blood specimen / Unknown Venipuncture / Unknown 11/27/2024 1:27 PM EDT 11/27/2024 3:16 PM EDT us Jan Albert MD LAB BLOOD ORDERABLES Final Resul t [facility] ([place]) [address] [place] [address] from Last 3 Months Insurance [employer] MEDIC[employer] Care Teams Airport Operations Coordinator Relationship Specialty Start Date End Date Renny Hansen MD [address] [facility] [address] [place] [address] PCP - General Internal Medicine 07/18/24 Balta Cardenas MD [address] [place] [address] Referring Physician 11/15/24
--- OUTSIDE RECORDS SUMMARY | 2025-02-21 14:11 | XMS_ITS | Encounter Summary ---
Author Organization [facility] Address [address] [place] [address] Care Team Providers Care Senior Data Quality Analyst Name Role Phone Renny Hansen MD Primary Care Provider [phone] Balta Cardenas MD Unavailable [phone] Encounter Details Date Type Department Care Team (Late st Contact Info) Description 01/07/2025 Telephone [facility] Infectious Disease [address] [place] [address] Rosemarie Mistry MA Social History Tobacco Use Types Packs/Day Years Used Date Smoking Tobacco: Former Cigarettes 1 7 - 1999 Smokeless Tobacco: Never Alcohol [...] documented as of this encounter Functional Status documented as of this encounter Plan of Treatment Upcoming Encounters Date Type Department Care Team (Late st Contact Info) Description 05/15/2025 11:00 AM EDT Follow-Up [facility] Infectious Disease [address] [place] [address] Ortega Hines MD [address] [facility]/[place] [address] documented as of this encounter Visit Diagnoses Not on filedocumented in this encounter Care Teams Senior Data Quality Analyst Relationship Specialty Start Date End Date Renny Hansen MD 112 [facility] [address] [place] [address] PCP - General Internal Medicine 07/18/24 Balta Cardenas MD [address] [place] [address] Referring Physician 11/15/24 documented as of this encounter
--- OUTSIDE RECORDS SUMMARY | 2025-02-21 14:11 | XMS_ITS | Patient Health Record ---
Author Organization [facility] Address [address] [place] [address] Care Team Providers Care Sales Support Engineer Name Role Phone SHAIKH DOMINGUEZ Primary Care Provider James Garcia Unavailable [phone] Reason For Referral Reason PRIOR AUTH APPROVED MCE AETNA...NOT SCHED...please precert MRI left shoulder with metal reduction study at [facility] LOCATION CHANGE TO [facility] [place] Diagnosis 1 Left shoulder pain ( M25.512) Referral Organization [facility] Referring Provider First Name James Referring Provider Last Name Robert Referring Provider Speciality Orthopedic Surgery [facility]erred Organization [facility] Referred Provider James Jones Referred Address [place], [place], Referred Provider Specialty Orthopedic S urgery Procedure 1 MRI Joint Upper Ext w/o Dye ([id number]) General Notes Christine Evans 2023 02:42:44 PM >, Sara Aguirre 03/06/2024 03:40:23 PM > AUTH IS PENDING PER BRYNN. CASE WENT TO REVIEW IT SAYS THERE IS A DENIED REQUEST FOR THE SAME PROCEDURE ON FILE. I UPLOADED CLINICALS. CASE #[id number], Christine Evans 03/08/2024 02:56:54 PM >PATIENT LEFT VOICEMAIL STATING SHE RECEIVED AN APPROVAL LETTER IN THE MAIL FROM HER INSURANCE, BUT SHE WOULD ALSO LIKE TO CHANGE THE LOCATION TO [facility] IN [place] María Gordon 03/09/2024 08:34:02 AM > PER BRYNN PRIOR AUTH HAS BEEN APPROVED FROM 03/06/2024-09/03/2024 AUTH # [id number], AUTH IN CHART. FACILITY HAS BEEN UPDATED TO [facility]. FAXED TO [facility].Cristina Tricia 03/09/2024 08:50:15 AM > Referral Priority Urgent Encounters Encounter Location Date Provider Diagnosis [facility] Office [address] [facility] [address] [place] [address] 03/05/2024 James Jones Left shoulder pain M25.512 [facility] [place] [address] [place] [address] 03/19/2024 James Jones Left shoulder pain M25.512 Assessments Encounter Date Diagnosis (ICD Code) Assessment Notes Treatment Notes Treatment Clinical Notes Section Notes 03/05/2024 Left shoulder pain (ICD-10 - M25.512) Left shoulder pain Painful left total shoulder arthroplasty 03/19/2024 Left shoulder pain (ICD-10 - M25.512) 03/05/2024 Other I discussion with the patient regarding left total shoulder arthroplasty. She is having quite a bit of pain in laxity motor function. Did discuss treatment options. Do recommend MRI with [place] to evaluate for potential rupture of deltoid. Left shoulder pain Painful left total shoulder arthroplasty Plan Of Treatment Pending Test Test Name Order Date MRI : Shoulder W/O Contrast Left - 41322 03/05/2024 ORDERS 03/19/2024 Chest 2 views - [id number] 03/19/2024 Insurance Providers Payer Name Payer Address Payer Phone Subscriber Number Group Number Insured Name Patient Relationship to Insured Coverage Start Date Coverage End Date Medicare A[employer] [address] [place] [address] [id number] MAXIMUS HERRMANN Self - patient is the insured
--- OUTSIDE RECORDS SUMMARY | 2025-02-21 14:11 | XMS_ITS | Encounter Summary ---
Author Organization [facility] Address [address] [facility] [place] [address] Care Team Providers Care Helix Coil Winder Name Role Phone Jazmín Calvillo RURAL HEALTH CONSULTANT Unavailable [phone] Renny Hansen MD Primary Care Provider [phone] Renny Hansen MD Unavailable Cindi Jenkins CONSULTING SOLUTION MANAGER Unavailable [phone] Lisa Ramirez CHRISTMAS TREE GROWER Unavailable Unavailable Encounter Details Date Type Department Care Team (Late st Contact Info) Description 07/09/2024 Abstract [facility] [address] [place] [address] Unallocated, Noms Provider, [address] [place], [place] [address] Social History Tobacco Use Types Packs/Day Years [...] week 08/30/2023 How often do you attend islam or voodoo serv ices? Patient declined 08/30/2023 Do you belong to any clubs o r organizations such as islam groups, unions, fraGrow Mobile or athletic groups, or school groups? Yes [...] Recorded Patient Health Questionnaire-2 Score 0 05/31/2024 [facility] - Occupational Stress Questionnaire Answer [...] [facility] [address] [facility] [address] [place] [address] Renny Hansen MD [address] [facility] [address] [place] [address] documented as of this encounter Visit Diagnoses Not on filedocumented in this encounter Additional Health Concerns Assessment Noted Time PHQ-9 Depression Total Score: 1 09/06/20 23 2:00 PM EST documented as of this encounter Care Teams Helix Coil Winder Relationship Specialty Start Date End Date Renny Hansen MD [address] [facility] [address] [place] [address] PCP - General Internal Medicine 09/19/24 Renny Hansen MD [address] [facility] [address] [place] [address] PCP - Medical [place] MA 09/12/2409/11 Jazmín Calvillo NP Nurse Practitioner Family Medicine 05/17/24 09/18/24 Cindi Jenkins LSW New Accounts Banking Representative Family Medicine 11/06/24 12/05/24 Lisa Ramirez LPN 12/05/24 documented as of this encounter
--- OUTSIDE RECORDS SUMMARY | 2025-02-21 14:11 | XMS_ITS | Encounter Summary ---
Author Organization [facility] Address [address] [place] [address] Care Team Providers Care Medical Orderly Name Role Phone Jazmín Calvillo FLOUR BLENDER HELPER Unavailable [phone] Renny Hansen MD Primary Care Provider [phone] Renny Hansen MD Unavailable [phone] Cindi Jenkins SPECIAL POLICE Unavailable [phone] Lisa Ramirez MANAGER OF CORPORATE Unavailable Unavailable Encounter Details Date Type Department Care Team (Late st Contact Info) Description 08/08/2024 Clinisync Result Encounter [facility] External Department Unsolicited Renny Hansen MD 112 [facility] [address] [place] [address] Social History Tobacco Use Types Packs/Day Years [...] How often do you attend congregational or anglican serv ices? Patient declined 08/30/2023 Do you belong to any clubs o r organizations such as congregational groups, unions, fraImpakt Protective or athletic groups, or school groups? Yes [...] Recorded Patient Health Questionnaire-2 Score 0 05/31/2024 [facility] - Occupational Stress Questionnaire Answer Date [...] AM EDT Office Visit [facility] [place] 112 [facility] 110 [place] [address] Renny Hansen MD 112 [facility] [address] [place] [address] documented as of this encounter Procedures Procedure Name Priority Date/Time Associated Diagnosis Comments FL UPPER GI W AIR* 08/08/2024 6: 31 AM EST documented in this encounter Results * FL UPPER GI W AIR* (08/08/2024 6:31 AM EST) Anatomical Region Laterality Modality Radiographic Jayashree ging 08/08/2024 6:31 AM EST Narrative 08/08/2024 6:33 AM EST The [address] [address] Fluoroscopy Report Signed Patient: BREANN HERRMANN MR#: [id number] : 1945 Acct:[id number] Age/Sex: 78 / F ADM Date: 08/07/24 Loc: [place] Attending Dr: RENNY HANSEN Ordering Physician: RENNY HANSEN Date of Service: 08/07/24 Procedure(s): FL upper GI w air Accession Number(s): [id number] cc: RENNY HANSEN The [place] [address] Patient Name: BREANN HERRMANN MRN: [id number] date: 1945 Sex: F Assigned Patient Location: [place] Current Patient Location: Accession/Order Number: [id number] Exam Date: 08/07/2024 08:45 Report Date: 08/08/2024 [...] M.D. Signed By: 08/08/24632 DD/ 0 TD/TT: Finishing Machine Operator: Procedure Note Radiology, Radiologist, MD - 08/08/2024 [place] [address] Fluoroscopy Report Signed Patient: BREANN HERRMANN TMR#: [id number] : 8Acct:[id number] Age/Sex: 78 / FADM Date: 08/07/24 Loc: [place] Attending Dr: RENNY HANSEN Ordering Physician: RENNY HANSEN Date of Service: 08/07/24 Procedure(s): FL upper GI w air Accession Number(s): [id number] cc: RENNY HANSEN [place] [address] [place] [id number] Patient Name: BREANN HERRMANN MRN: [facility]:[id number] date: 1945 Sex: F Assigned Patient Location: [place] Current Patient Location: Accession/Order Number: [id number] Exam Date: 08/07/2024 08:45 Report Date: 08/08/2024 [...] Delgado M.D. Signed By:08/08/24632 DD/ 0 TD/TT: Finishing Machine Operator: Renny Hansen MD IMG XR PROCEDURES Final Result documented in this encounter Visit Diagnoses Not on filedocumented in this encounter Additional Health Concerns Assessment Noted Time PHQ-9 Depression Total Score: 1 09/06/20 23 2:00 PM EST documented as of this encounter Care Teams Medical Orderly Relationship Specialty Start Date End Date Renny Hansen MD [address] [facility] 110 [place] [address] PCP - General Internal Medicine 09/19/24 Renny Hansen MD [address] [facility] [address] [place] [address] PCP - Medical [place] 09/12/2409/11 Jazmín Calvillo NP Nurse Practitioner Family Medicine 05/17/24 09/18/24 Cindi Jenkins LSW Analysis Manager Family Medicine 11/06/24 12/05/24 Lisa Ramirez LPN 12/05/24 documented as of this encounter
--- OUTSIDE RECORDS SUMMARY | 2025-02-21 14:11 | XMS_ITS | Encounter Summary ---
Author Organization [facility] Address [address] [place] [address] Care Team Providers Care Corporate Legal Secretary Name Role Phone Jazmín Calvillo NP Unavailable [phone] Renny Hansen MD Primary Care Provider [phone] Renny Hansen MD Unavailable [phone] Cindi Jenkins INFORMATICS COORDINATOR Unavailable [phone] Lisa Ramirez LPN Unavailable Unavailable Encounter [...] week 08/30/2023 How often do you attend alevism or confucianism serv ices? Patient declined 08/30/2023 Do you belong to any clubs o r organizations such as alevism groups, unions, fraternal or athletic groups, or [...] Recorded Patient Health Questionnaire-2 Score 0 05/31/2024 [facility] - [...] 05/16/2025 11:00 AM EDT Office Visit [facility] 112 [facility] 110 [place] [address] Renny Hansen MD 112 [facility] 110 [place] [address] documented as of this encounter Procedures Procedure Name Priority Date/Time Associated Diagnosis Comments CT CERVICAL SPINE W IV CONTRAST 06/28/2024 8:43 AM EDT documented in this encounter Results * CT cervical spine w IV contrast (06/28/2024 8:43 AM EDT) Anatomical Region Laterality Modality Spine, C-spine Computed Tomogra phy 06/28/2024 8:43 AM EDT Narrative 06/28/2024 8:45 AM EDT The [address] [address] [address] Scan Report Signed Patient: BREANN STARKS MR#: [id number] : 1945 Acct:[id number] Age/Sex: 78 / F ADM Date: 06/26/24 Loc: CT Attending Dr: VangieStaff Physician [place] Ordering Physician: Channing Devlin M.D. Date of Service: 06/26/24 Procedure(s): CT cervical spine w con Accession Number(s): [id number] cc: RENNY HANSEN [place] [address] Patient Name: BREANN STARKS MRN: [facility]:[id number] date: 1945 Sex: F Assigned Patient Location: CT Current Patient Location: Accession/Order Number: [id number] Exam Date: 06/26/2024 14:58 Report Date: 06/28/2024 [...] due to patient body habitus and poor ikveyx-ut-olkob ratio BONES: Reversal of normal cervical lordosis. [...] M.D. Signed By: 06/28/24 0845 DD/ TD/TT: Ranch Helper: Procedure Note Radiology, Radiologist, - 06/28/[address] [place] [id number] Scan Report Signed Patient: BREANN STARKS TMR#: [id number] : 8Acct:[id number] Age/Sex: 78 / FADM Date: 06/26/24 Loc: CT Attending Dr: Non-Staff Physician Mag[place] Ordering Physician: Channing Devlin M.D. Date of Service: 06/26/24 Procedure(s): CT cervical spine w con Accession Number(s): [id number] cc: RENNY HANSEN [place] [address] Patient Name: BREANN STARKS MRN: [id number] date: 1945 Sex: F Assigned Patient Location: CT Current Patient Location: Accession/Order Number: [id number] Exam Date: 06/26/2024 14:58 Report Date: 06/28/2024 [...] due to patient body habitus and poor txcljr-rs-dqpkx ratio BONES: Reversal of normal cervical lordosis. [...] Alston M.D. Signed By:06/28/2445 DD/ 2 TD/TT: Ranch Helper: us Generic External Data Provider IMG CT PROCEDURES Final Result documented in this encounter Visit Diagnoses Not on filedocumented in this encounter Additional Health Concerns Assessment Noted Time PHQ-9 Depression Total Score: 1 09/06/20 23 2:00 PM EST documented as of this encounter Care Teams Corporate Legal Secretary Relationship Specialty Start Date End Date Renny Hansen MD [address] [facility] 110 [place] [address] PCP - General Internal Medicine 09/19/24 Renny Hansen MD [address] [facility] 110 [place] [address] PCP - Medical [facility] 09/12/2409/11 Jamzín Calvillo NP Nurse Practitioner Family Medicine 05/17/24 09/18/24 Cindi Jenkins LSW Sales Communications Manager Family Medicine 11/06/24 12/05/24 Lisa Ramirez LPN 12/05/24 documented as of this encounter
--- OUTSIDE RECORDS SUMMARY | 2025-02-21 14:11 | XMS_ITS | Encounter Summary ---
Author Organization [facility] Address [address] [place] [address] Care Team Providers Care Voicer Name Role Phone Jazmín Calvillo MANAGER PROCESS IMPROVEMENT Unavailable [phone] Renny Hansen MD Primary Care Provider [phone] Renny Hansen MD Unavailable [phone] Cindi Jenkins SCREW MACHINE SETTER Unavailable [phone] Lisa Ramirez PETROLEUM GEOLOGIST Unavailable Unavailable Encounter Details Date Type Department Care Team (Late st Contact Info) Description 07/05/2024 [facility] [address] [place] [address] Wesley Long MD [address] [place] [address] Social History Tobacco Use Types Packs/Day Years [...] How often do you attend yazdanism or baptism serv ices? Patient declined 08/30/2023 [...] Recorded Patient Health Questionnaire-2 Score 0 05/31/2024 [facility] Occupat ional Health - Occupational [...] EDT Office Visit [facility] [address] [facility] 110 [place] [address] Renny Hansen MD [address] [facility] 110 [place] [address] documented as of this encounter Visit Diagnoses Not on filedocumented in this encounter Additional Health Concerns Assessment Noted Time PHQ-9 Depression Total Score: 1 09/06/20 23 2:00 PM EST documented as of this encounter Care Teams Voicer Relationship Specialty Start Date End Date Renny Hansen MD [address] [facility] 110 [place] [address] PCP - General Internal Medicine 09/19/24 Renny Hansen MD [address] [address] PCP - Medical [place] 09/12/2409/11 Jazmín Calvillo NP Nurse Practitioner Family Medicine 05/17/24 09/18/24 Cindi Jenkins LSW Roller Inspector And Mender Family Medicine 11/06/24 12/05/24 Lisa Ramirez LPN 12/05/24 documented as of this encounter
--- OUTSIDE RECORDS SUMMARY | 2025-02-21 14:11 | XMS_ITS | Encounter Summary ---
Author Organization [facility] Address [address] [place] [address] Care Team Providers Care Physician Industrial Name Role Phone Jazmín Calvillo NP Unavailable Renny Hansen MD Primary Care Provider [phone] Renny Hansen MD Unavailable Cindi Jenkins DRUM DRIER Unavailable [phone] Lisa Ramirez LPN Unavailable Unavailable Encounter [...] week 08/30/2023 How often do you attend orthodox or yarsanism serv ices? Patient declined 08/30/2023 Do you belong to any clubs o r organizations such as orthodox groups, unions, fraternal or athletic groups, or [...] Recorded Patient Health Questionnaire-2 Score 0 05/31/2024 [facility] Occupat ional [facility] [...] 05/16/2025 11:00 AM EDT Office Visit [facility] 112 [facility] 110 [place] [address] Renny Hansen MD 112 [facility] 110 [place] [address] documented as of this encounter Procedures Procedure Name Priority Date/Time Associated Diagnosis Comments CT SHOULDER LEFT W IV CONTRAST 06/28/2024 8:42 AM EDT documented in this encounter Results * CT shoulder left w IV contrast (06/28/2024 8:42 AM EDT) Anatomical Region Laterality Modality Upper Extremities, Shoulder Left Comp uted Tomography 06/28/2024 8:42 AM EDT Narrative 06/28/2024 8:45 AM EDT The [address] [address] [address] Scan Report Signed Patient: BREANN STARKS MR#: [id number] : 1945 Acct:[id number] Age/Sex: 78 / F ADM Date: 06/26/24 Loc: CT Attending Dr: Channing Devlin M.D. Ordering Physician: Channing Devlin M.D. Date of Service: 06/26/24 Procedure(s): CT Shoulder LT w/ Con Accession Number(s): [id number] cc: HANSENRENNY [place] [id number] Patient Name: BREANN STARKS MRN: [facility]:[id number] date: 1945 Sex: F Assigned Patient Location: CT Current Patient Location: Accession/Order Number: [id number] Exam Date: 06/26/2024 14:58 Report Date: 06/28/2024 [...] M.D. Signed By: 06/28/2445 DD/ 1 TD/TT: Casino Enforcement Agent: Procedure Note Radiology, Radiologist, MD - 10/17/[address] [place] [id number] CT Scan Report Signed Patient: BREANN STARKS TMR#: [id number] : 8Acct:[id number] Age/Sex: 78 / FADM Date: 06/26/24 Loc: CT Attending Dr: Non-Staff Physician [place] Ordering Physician: Channing Devlin M.D. Date of Service: 06/26/24 Procedure(s): CT Shoulder LT w/ Con Accession Number(s): [id number] cc: RENNY HANSEN The [place] [id number] Patient Name: BREANN STARKS MRN: [id number] date: 1945 Sex: F Assigned Patient Location: CT Current Patient Location: Accession/Order Number: [id number] Exam Date: 06/26/2024 14:58 Report Date: 06/28/2024 [...] Rob Jurado M.D. Signed By:06/28/2445 DD/ TD/TT: Casino Enforcement Agent: us Generic External Data Provider IMG CT PROCEDURES Final Result documented in this encounter Visit Diagnoses Not on filedocumented in this encounter Additional Health Concerns Assessment Noted Time PHQ-9 Depression Total Score: 1 09/06/20 23 2:00 PM EST documented as of this encounter Care Teams Physician Industrial Relationship Specialty Start Date End Date Renny Hansen MD [address] [facility] 110 [place] [address] PCP - General Internal Medicine 09/19/24 Renny Hansen MD [address] [facility] 110 [place] [address] PCP - Medical [place] 09/12/2409/11 Jazmín Calvillo NP Nurse Practitioner Family Medicine 05/17/24 09/18/24 Cindi Jenkins LSW Property Clerk Family Medicine 11/06/24 12/05/24 Lisa Ramirez LPN 12/05/24 documented as of this encounter
--- OUTSIDE RECORDS SUMMARY | 2025-02-21 14:11 | XMS_ITS | Encounter Summary ---
Author Organization [facility] Address [address] [place] [address] Care Team Providers Care Tank Car Loader Name Role Phone Jazmín Calvillo OFFICE ASSISTANT Unavailable [phone] Renny Hansen MD Primary Care Provider [phone] Renny Hansen MD Unavailable [phone] Cindi Jenkins MOTOR VEHICLES SUPERVISOR Unavailable [phone] Lisa Ramirez TRAUMA REGISTRAR Unavailable Unavailable Encounter Details Date Type Department Care Team (Late st Contact Info) Description 07/25/2024 [facility] [address] [place] [address] Wesley Long MD [address] [place] [address] Social History Tobacco Use Types Packs/Day Years [...] How often do you attend alevism or uatsdin serv ices? Patient declined 08/30/2023 Do you [...] Recorded Patient Health Questionnaire-2 Score 0 05/31/2024 [facility] of Occupat ional Health - Occupational [...] EDT Office Visit [facility] [address] [facility] 110 [place] [address] Renny Hansen MD [address] [facility] 110 [place] [address] documented as of this encounter Visit Diagnoses Not on filedocumented in this encounter Additional Health Concerns Assessment Noted Time PHQ-9 Depression Total Score: 1 09/06/20 23 2:00 PM EST documented as of this encounter Care Teams Tank Car Loader Relationship Specialty Start Date End Date Renny Hansen MD [address] [facility] [address] [place] [address] PCP - General Internal Medicine 09/19/24 Renny Hansen MD [address] [address] PCP - Medical [place] 09/12/2409/11 Jazmín Calvillo NP Nurse Practitioner Family Medicine 05/17/24 09/18/24 Cindi Jenkins LSW Steel Post Installer Family Medicine 11/06/24 12/05/24 Lisa Ramirez LPN 12/05/24 documented as of this encounter
--- OUTSIDE RECORDS SUMMARY | 2025-02-21 14:11 | XMS_ITS ---
Author Organization [facility] Address [address] [place] [address] Care Team Providers Care Detailer School Photographs Name Role Phone Renny Hansen MD Primary Care Provider [phone] Renny Hansen MD Unavailable Lisa Ramirez LPN Unavailable Unavailable Chronic Care Management (CCM) Status:Enrolled (Active) Start date:11/06/2024 Enrollment date:11/08/2024 Enrollment reason:Identified as high-risk Case Team Name Relationship Phone Lisa Ramirez LPN(Responsible Staff) Continued Care and Services Coordination
--- OUTSIDE RECORDS SUMMARY | 2025-02-21 14:11 | XMS_ITS | Clinical Summary ---
Author Organization [facility] Address [id number] [address] [place] [address] Care Team Providers Care Sheep Rancher Name Role Phone Unavailable Primary Care Provider [...] Medical Devices Not on file Insurance MEDICARE [facility]
--- OUTSIDE RECORDS SUMMARY | 2025-02-21 14:11 | XMS_ITS | Encounter Summary ---
Author Organization [facility] Address [address] [place] [address] Care Team Providers Care Menagerie Superintendent Name Role Phone Paulette Johnson MD Primary Care Provider [phone] Shaikh BEREKET Denis Primary Care Provider [phone] Renny Hasnen MD Primary Care Provider [phone] Balta Cardenas MD Unavailable [phone] Encounter Details Date Type Department Care Team (Late st Contact Info) Description 04/28/2022 Orders Only [facility] Family Medicine [address] [place] [address] Roopa Mensah MA Social History Tobacco Use Types Packs/Day Years Used Date Smoking Tobacco: Former Cigarettes Smokeless Tobacco: Never Alcohol Use Standard Drinks/Week Comments Yes 0 (1 standard drink = 0.6 oz pur e alcohol) OCCASIONAL Comments Unknown Sex and Gender Information Value Date Recorded Sex Assigned at Not on file Legal Sex Female 10:18 PM EDT Gender Identity Not on file Sexual Orientation Not on file documented as of this encounter Plan of Treatment Upcoming Encounters Date Type Department Care Team (Late st Contact Info) Description 05/15/2025 11:00 AM EDT Follow-Up [facility] Infectious Disease [address] [place] [address] Ortega Hines MD [address] [facility]/[place] [address] documented as of this encounter Visit Diagnoses Not on filedocumented in this encounter Care Teams Menagerie Superintendent Relationship Specialty Start Date End Date Paulette Johnson MD [address] PCP - General 05/03/22 07/04/23 Shaikh Denis MD [address] [place] [address] PCP - General Family Medicine 07/05/23 07/17/24 Renny Hansen MD [address] [facility] [address] [place] [address] PCP - General Internal Medicine 07/18/24 Balta Cardenas MD [address] [place] [address] Referring Physician 11/15/24 documented as of this encounter
--- NOTE | 2025-02-21 14:31 | PM.CN ---
Consult Note: HPI Data of Consult Patient: known to practice within the last 3 years Requesting Physician: Claire Clement NP Primary Care Provider: FAVIAN LUNA Consult Narrative Reason for consult: f/u Narrative: Breann Starks a pleasant 79 year old female with chronic low back and LE pain presents for evaluation. Pt has chronic pain secondary to lumbar ddd, lumbar stenosis, lumbar spondylosis, and sacroiliac joint pain. She has failed > 6 weeks of PT and provider guided HEP, heat, ice, tylenol, and cannot take NSAIDs. pain today 0/10 in left low back and leg. increasing to moderate to severe at times with standing walking and activity. finds benefit to hydrocodone-acetaminophen 5-325mg TID PRN moderate to severe pain. cc:: CC: Claire Clement NP Review of Systems ROS Status of ROS 10 or more systems reviewed and unremarkable except as noted in history and below [facility] Medical History (Updated 01/27/25 @ 10:54 by Holley Johnson MD) Arthritis ?M19.90 - Unspecified osteoarthritis, unspecified site (ICD-10) Chronic obstructive pulmonary disease ?J44.9 - Chronic obstructive pulmonary disease, unspecified (ICD-10) Peptic ulcer ?K27.9 - Peptic ulcer, site unspecified, unspecified as acute or chronic, without hemorrhage or perforation (ICD-10) Dyspnea on exertion ?R06.09 - Other forms of dyspnea (ICD-10) Anemia ?D64.9 - Anemia, unspecified (ICD-10) Hypertension ?I10 - Essential (primary) hypertension (ICD-10) Extremity edema ?R60.0 - Localized edema (ICD-10) Congestive heart failure ?I50.9 - Heart failure, unspecified (ICD-10) Atrial fibrillation ?I48.91 - Unspecified atrial fibrillation (ICD-10) Shoulder pain ?M25.519 - Pain in unspecified shoulder (ICD-10) Fatty liver ?K76.0 - Fatty (change of) liver, not elsewhere classified (ICD-10) History of shingles ?Z86.19 - Personal history of other infectious and parasitic diseases (ICD-10) Osteoarthritis ?M19.90 - Unspecified osteoarthritis, unspecified site (ICD-10) Pacemaker ?Z95.0 - Presence of cardiac pacemaker (ICD-10) Hiatal hernia ?K44.9 - Diaphragmatic hernia without obstruction or gangrene (ICD-10) Low back pain ?M54.50 - Low back pain, unspecified (ICD-10) Irregular heart beat ?I49.9 - Cardiac arrhythmia, unspecified (ICD-10) Surgical History History of shoulder replacement ?Z96.619 - Presence of unspecified artificial shoulder joint (ICD-10) S/P rotator cuff repair ?Z98.890 - Other specified postprocedural states (ICD-10) History of colonoscopy ?Z98.890 - Other specified postprocedural states (ICD-10) S/P YANELI-BSO ?Z90.710 - Acquired absence of both cervix and uterus (ICD-10) ?Z90.722 - Acquired absence of ovaries, bilateral (ICD-10) ?Z90.79 - Acquired absence of other genital organ(s) (ICD-10) H/O cardiac catheterization ?Z98.890 - Other specified postprocedural states (ICD-10) H/O arthroscopy of shoulder ?Z98.890 - Other specified postprocedural states (ICD-10) H/O arthroscopy of knee ?Z98.890 - Other specified postprocedural states (ICD-10) History of appendectomy ?Z90.49 - Acquired absence of other specified parts of digestive tract (ICD-10) History of total knee arthroplasty ?Z96.659 - Presence of unspecified artificial knee joint (ICD-10) Social History Within the past year, how often did you have a drink containing alcohol: monthly or less Smoking status: Former smoker Non-prescribed substance use: denies use Previous occupational history: retired Highest level of school completed/degree received: high school graduate Little interest or pleasure in doing things: not at all Feeling down, depressed, or hopeless: not at all Meds Home Medications and Allergies Home Medications ?Medication ?Instructions ?Recorded ?Confirmed ?Type cholecalciferol (vitamin D3) 125 5,000 unit PO DAILY 02/16/23 02/11/25 History mcg (5,000 unit) tablet (Vitamin D3) flecainide 100 mg tablet 100 mg PO Q12H 02/16/23 02/11/25 History omeprazole 40 mg capsule,delayed 40 mg PO DAILY 02/16/23 02/11/25 History release spironolactone 25 mg tablet 25 mg PO DAILY 02/16/23 02/11/25 History (Aldactone) verapamil 180 mg tablet,extended 180 mg PO Q12H 02/16/23 02/11/25 History release (Calan SR) apixaban 5 mg tablet (Eliquis) 5 mg PO BID 05/11/23 02/11/25 History furosemide 40 mg tablet 40 mg PO DAILY 03/01/24 02/11/25 History naloxone 4 mg/actuation nasal 4 mg intranasal Q3M PRN opioid 05/17/24 02/11/25 Rx spray (Narcan) overdose #2 ea baclofen 10 mg tablet 10 mg PO TID #90 tabs 10/10/24 02/11/25 Rx hydrocodone 5 mg-acetaminophen 325 1 tab PO TID PRN pain #90 tabs 10/26/24 02/11/25 Rx mg tablet hydrocodone 5 mg-acetaminophen 325 1 tab PO TID PRN pain #90 tabs 01/03/25 02/11/25 Rx mg tablet hydrocodone 5 mg-acetaminophen 325 1 tab PO TID PRN pain #90 tabs 02/11/25 Rx mg tablet penicillin V potassium 500 mg mg 02/11/25 History tablet Allergies Allergy/AdvReac Type Severity Reaction Status Date / Time No Known Drug Allergies Allergy Verified 02/11/25 11:11 Exam Constitutional Documenting provider has reviewed patient's vital signs: yes Common normals: no apparent distress, oriented x3, healthy appearing, alert and well nourished General appearance: cooperative HENAK Common normals: normocephalic, hearing grossly normal bilaterally and moist oral mucous membranes Head and scalp: normocephalic Eye Common normals: PERRL Pupil: PERRL Neck & C-Spine Common normals: full ROM General: normal visual inspection Chest Common normals: inspection of chest normal Respiratory Common normals: normal respiratory effort, no retractions and no use of accessory muscles Back & Pelvis Lumbar spine/lower back: straight leg raise negative bilaterally; ROM not limited and no pain with ROM Sacroiliac joints: SI joint(s) abnormal Other: right sij positive letitia(patricks), gaenslens, thigh thrust, compression test sensation intact BLE strength 5/5 in BLE Neuro Common normals: oriented x3 Sensorium/orientation: alert Psych Common normals: mental status grossly normal, thought process normal, cooperative, affect normal, speech normal and activity/motor behavior normal Speech: normal speech Thought process: normal thought process Results Additional Findings Additional findings: If on a controlled substance or opioids, I have checked an OARRS report on this patient and there are no aberrancies noted in the prescribing history.??If on a controlled substance or opioid a drug screen was completed and reviewed within the last year, and if there has not been a drug screen completed we ordered one today to monitor higher risk, state monitored pain medication use. As part of providing excellent, safe, comprehensive care, the following was completed at our patient's visit: 1. A medication reconciliation and review to ensure accurate knowledge of current/active medications, including asking our patients to inform us about any arbz-adc-jreoagz medications or herbal remedies/nutritional supplements/alternative remedies. 2. A review to specifically ensure our patients have had annual screening for screening for depression, screening for tobacco use, and screening for unhealthy alcohol use. For concerning screenings had a discussion with the patient, provided patient education, and recommended follow-up with primary care provider when appropriate. If patient noted with a risk of falling, they received education on strength, gait, and balance training to prevent future risk of falling. Portions of this note may have been carried over from the previous visit and updated as appropriate. Please note this office utilizes paper charting in addition to the electronic medical record. A list of current medications, vitals, and PMH is available there as the clinical staff outside of myself do not have access to [place] [facility] charting during the clinic day operations. As part of providing quality comprehensive care the current medications, vitals, and PMH were reviewed in the paper chart. Assessment and Plan Assessment and Plan (1) Sacroiliitis: Assessment and Plan: 02-11-25 right SIJ injection >80% improvement ongoing (2) Chronic use of opiate drug for therapeutic purpose: Assessment and Plan: I feel these medications are improving the patient's quality of life and allow them to tolerate activities of daily living as well as participate in recreational activity.? The patient does not report intolerable side effects. The patient is NOT opioid naive and non-pharmacologic and non-opioid treatment has failed to significantly relieve the patient's pain and improve functionality. The patient has a diagnosis that is related to a somatic or visceral pain etiology. ? ?? I reviewed with the patient the potential risks and side effects with the use of? opioid medications including but not limited to respiratory depression,? sedation, and even . Within the last 12 months I have verified the patient has access to naloxone should? these effects occur. The patient was advised to let? their family know they had Naloxone in case they would need to administer? the medication. I advised the patient to avoid the use of any other? sedation substances including alcohol, THC, and benzodiazepines while? taking opioid medications due to the risk of compounding side effects and? detrimental outcomes. within the last 12 months I have reviewed the AFFILIATE MARKETING SPECIALIST, pain treatment agreement and urine drug screen.? ?? A drug screen was completed within the last year, and no aberrancies were noted regarding their use of controlled substances. The patient understands they are subject to the terms and conditions of the pain contract that they have signed. ? ?? I have checked an OARRS report on this patient today and there are no aberrancies noted in the prescribing history.? (3) Lumbar stenosis with neurogenic claudication: Assessment and Plan: 12-17-24 right L4-5 L5-S1 TFESI >50% improvement ongoing 2 left l4-5 l5-s1 TFESI >50% improvement ongoing (4) Lumbar spondylosis: (5) Chronic anticoagulation: Plan continue HEP as tolerated continue current medications f/u 1 month, sooner if needed
== END 2025-02-21 14:06 | disposition home or self-care (01) ==
LOC: PM 14:05
PROVIDERS: PCP Internal Medicine; Visit Provider Nurse Practitioner
DX: M46.1 Sacroiliitis, not elsewhere classified (principal); Z79.891 Long term (current) use of opiate analgesic; M48.062 Spinal stenosis, lumbar region with neurogenic claudication; M47.816 Spondylosis without myelopathy or radiculopathy, lumbar region; Z79.01 Long term (current) use of anticoagulants; M25.512 Pain in left shoulder
CPT/HCPCS: 36415; 80048; 85025; 86140; G0463

== ENCOUNTER 2025-02-21 14:47 | Outpatient (OUT) | payer MEDICARE, SELFPAY ==
--- OUTSIDE RECORDS SUMMARY | 2025-02-18 11:30 | XMS_ITS | Encounter Summary ---
Author Organization [facility] Address [address] [facility] [place] [address] Care Team Providers Care Software Packaging Engineer Name Role Phone Renny Hansen MD Primary Care Provider [phone] Renny Hansen MD Unavailable [phone] Lisa Ramirez LPN Unavailable Unavailable Encounter Details Date Type Department Care Team (Late st Contact Info) Description 02/18/2025 11:30 AM EDT Office Visit [facility] [address] [facility] 110 [place] [address] Renny Hansen MD 112 [facility] 110 [place] [address] RLS (restless legs syndrome) (Primary [...] often do you attend chur ch or jehovah's witness services? Patient declined 11/12/2024 Do you belong to any clubs o r organizations such as gnosticism groups, unions, fraAptos [employer] or athletic groups, or school groups? No [...] Recorded Patient Health Questionnaire-2 Score 0 02/18/2025 [facility] - [...] any time in the past 12 m [facility], were you homeless or living in a [...] by mouth every 12 (twelve) hours HYDROcodone-acetaminophen ([place]) 5-325 MG tablet Take 1 tablet by [...] EDT Office Visit [facility] 112 [facility] 110 [place] [address] Renny Hansen MD 112 [facility] [address] [place] [address] documented as of this encounter Visit Diagnoses Diagnosis RLS (restless legs syndrome)- Primary Restless legs syndrome (RLS) documented in this encounter Additional Health Concerns Assessment Noted Time PHQ-9 Depression Total Score: 1 09/06/20 23 2:00 PM EST documented as of this encounter Care Teams Software Packaging Engineer Relationship Specialty Start Date End Date Renny Hansen MD 112 [facility] 110 [place] [address] PCP - General Internal Medicine 09/19/24 Renny Hansen MD 112 [facility] [address] [place] [address] PCP - Medical [place] 09/12/2409/11 Lisa Ramirez LPN 12/05/24 documented as of this encounter
--- OUTSIDE RECORDS SUMMARY | 2025-02-20 11:00 | XMS_ITS | Encounter Summary ---
Author Organization [facility] Address [address] [place] [address] Care Team Providers Care Salvage Engineering Technician Name Role Phone Renny Hansen MD Primary Care Provider [phone] Balta Cardenas MD Unavailable [phone] Encounter Details Date Type Department Care Team (Late st Contact Info) Description 02/20/2025 11:00 AM EDT Follow-Up [facility] Infectious Disease [address] [place] [address] Ortega Hines MD [address] [facility] [address] Pain in joint of left [...] Info) Description 05/15/2025 11:00 AM EDT Follow-Up [facility] Infectious Disease [address] [place] [address] Ortega Hines MD [address] [facility] [address] Scheduled Orders Name Type Priority [...] shoulder documented in this encounter Care Teams Salvage Engineering Technician Relationship Specialty Start Date End Date Renny Hansen MD [address] [facility] 110 [place] [address] PCP - General Internal Medicine 07/18/24 Balta Cardenas MD [address] [place] [address] Referring Physician 11/15/24 documented as of this encounter
--- OUTSIDE RECORDS SUMMARY | 2025-02-21 14:53 | XMS_ITS | Clinical Summary ---
Author Organization [facility] Address [address] [place] [address] Care Team Providers Care Agricultural Production Engineer Name Role Phone Renny Hansen MD Primary Care Provider [phone] Renny Hansen MD Unavailable [phone] Lisa Ramirez LPN Unavailable Unavailable Allergies [...] before bedtime. 06/21/20 24 Active HYDROcodone-acet aminophen (Wilmar) 5-325 MG tablet Take 1 tablet by [...] place. MRI ordered, awaiting approval. Will order Wilmar as needed as it helped with pain. [...] of HF, and using eliquis Will order hosford for short term pain control. Educated on [...] get device check to assess AF burden -[id number] 3 -Continue Xarelto 20 mg daily, continue propafenone to 25 mg 3 times a day Assessment & Plan (12/29/2023 2:36 PM EDT): S/P PPM. Follows [facility] cardiology. On Xarelto for stroke px. Also uses Flecainide, Verapamil. Assessment & Plan (11/07/2023 3:16 PM EST): S/P PPM. Follows [facility] cardiology. On Xarelto for stroke px. Also uses Flecainide, Verapamil. Assessment & Plan (09/06/2023 2:46 PM EST): S/P PPM. Follows [facility] cardiology. On Xarelto for stroke px. Sinus node dysfunction 10/07/2020 Overview (09/06/2023): Last Assessment & Plan: - S/p PPM [employer] scientific -We will have her scheduled for [...] [facility] [address] [place] [address] Renny Hansen MD RLS (restless legs syndrome) (Primary Dx) 02/18/2025 Bamboo flowsheet [facility] [address] [place] [place] [address] Renny Hansen MD 02/18/2025 Travel 02/11/2025 Travel 02/08/2025 Refill [facility] [address] [facility] [address] [place] [address] Renny Hansen MD Persistent atrial fibrillation (HCC) 02/06/2025 [facility] [address] [place] [address] Saira Chi RN 01/28/2025 Patient Outreach [facility] [address] [place] [address] Cindi Jenkins LSW 01/18/2025 Refill [facility] [address] [facility] [address] [place] [address] Renny Hansen MD Peptic ulcer, site unspecified, unspecified as acute or chronic, without hemorrhage or perforation; Peptic ulcer 01/04/2025 Abstract [facility] [address] [facility] [address] [place] [address] Renny Hansen MD 01/03/2025 External Result Encounter [facility] External Department Unsolicited Juan Monahan DO 12/21/2024 Clinisync Result Encounter [facility] External Department Unsolicited Provider, Generic External Data 12/17/2024 11:00 AM EDT Office Visit [facility] [address] [facility] [address] [place] [phone] Renny Hansen MD 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 Patient declined 11/12/2024 Do you belong [...] Recorded Patient Health Questionnaire-2 Score 0 02/18/2025 [facility] - [...] EDT Office Visit [facility] 112 [facility] [address] [place] [address] Renny Hansen MD 112 [facility] [address] [place] [address] Health Maintenance Due Date Last Done Comments [...] Dimitrios Blanco M.D.01/03/2025 3:42 PM Dictation Location: [facility] Tech: Ghazal Wilson Transcribed By: STAR 01/03/25 1542 Dictated By: Dimitrios Blanco MD 01/03/25 153 Signed By: <Electronically signed by Dimitrios Blanco MD in OV> 01/03/25 1542 Narrative 01/03/2025 3:44 PM EDT [facility] Main [place] [id number] Ultrasound Report Signed Patient: Breann Starks MR#: [id number] 171 : 1945 Acct:[id number] Age/Sex: 79 / F ADM Date: 01/03/25 [...] Procedure Note Radiology, Radiologist, MD - 01/03/2025 [facility] Main [address] [address] Ultrasound Report Signed Patient: Breann Starks TMR#: [id number] 171 : 8Acct:[id number] Age/Sex: 79 / FADM Date: 01/03/25 Loc: [...] Dimitrios Blanco M.D.01/03/2025 3:42 PM Dictation Location: [facility] Tech: Ghazal Wilson Transcribed By: [facility] 01/03/25 1542 Dictated By: Dimitrios Blanco [...] 0.55 - 1.02 mg/dL [facility] EGFR-AF THAI >60 >=60 mL/min/1.7 3m 2 [facility] EGFR-NON AF THAI 55(L) >=60 mL/min/1.7 3m 2 [facility] BUN CREATININE RATIO 22.4 [facility] CALCIUM 9.1 8.5 - 10.1 mg/dL [facility] 12/21/2024 4:58 PM EDT 12/21/2024 4:58 PM EDT Narrative [facility] - 12/21/2024 5:23 PM EDT us Generic External Data Provider [facility] F inal Result [facility] from Last 3 Months Insurance [employer] MEDICARE Care Teams Agricultural Production Engineer Relationship Specialty Start Date End Date Renny Hansen MD [address] [facility] [address] [place] [address] PCP - General Internal Medicine 09/19/24 Renny Hansen MD [address] [facility] [address] [place] [address] PCP - Medical [place] 09/12/2409/11 Lisa Ramirez LPN 12/05/24
--- OUTSIDE RECORDS SUMMARY | 2025-02-21 14:53 | XMS_ITS | Encounter Summary ---
Author Organization [facility] Address [address] [place] [address] Care Team Providers Care Naval Aircrewman Operator Name Role Phone Shaikh BEREKET Denis Primary Care Provider [phone] Jazmín Calvillo HIDE BUFFER Unavailable [phone] Renny Hansen MD Primary Care Provider [phone] Renny Hansen MD Unavailable [phone] Cindi Jenkins PERIODONTAL ASSISTANT Unavailable [phone] Lisa Ramirez LPN Unavailable Unavailable Encounter Details Date Type Department Care Team (Late st Contact Info) Description 05/02/2024 External Result Encounter [facility] External Department Unsolicited Scott Cruz PA [address] [facility] [address] [place] [address] Social History Tobacco Use Types Packs/Day Years [...] week 08/30/2023 How often do you attend quaker or holiness serv ices? Patient declined 08/30/2023 Do you belong to any clubs o r organizations such as quaker groups, unions, fraKnight Warner or athletic groups, or school groups? Yes [...] Recorded Patient Health Questionnaire-2 Score 0 04/11/2024 [facility] - Occupational Stress Questionnaire Answer [...] a retirement (including now)? Patient refused 08/30/2023 Comments Unknown [...] AM EDT Office Visit [facility] [address] [address] Renny Hansen MD 112 [facility] 110 [place] [address] documented as of this encounter Procedures Procedure [...] M.D.05/02/2024 2:44 PM Dictation Location: [place] [address] Transcribed By: [facility] 05/02/24 1444 Dictated By: Etienne Rhodes DO 05/02/24 1440 Signed By: <Electronically signed by Etienne Rhodes DO in OV> 05/02/24 1444 Narrative 05/02/2024 2:46 PM EDT [facility] [place] [address] Nuclear Medicine Report Signed Patient: Breann Starks MR#: [id number] 171 : 1945 Acct:[id number] Age/Sex: 78 / F ADM Date: 05/02/24 Loc: [place] Room: Type: [facility] Attending Dr: Scott Cruz PA-C Copies to: [...] Procedure Note Radiology, Radiologist, MD - 05/02/2024 [place] [id number] Nuclear Medicine Report Signed Patient: Breann Starks TMR#: [id number] 171 : 8Acct:[id number] Age/Sex: 78 / FADM Date: 05/02/24 Loc: [place] Room:Type: [facility] Attending Dr: Scott Cruz PA-C Copies to: [...] Correlatewith plain film imaging. Impression dictated by: Etienen Rhodes M.D.05/02/2024 2:44 PM Dictation Location: [place] [address] Transcribed By: [facility] 05/02/24 1444 Dictated By: Etienne Rhodes DO 05/02/24 1440 Signed By: <Electronically signed by Etienne Rhodes DO in OV> 05/02/24 1444 us Scott [place] PROCEDURES Final Resul t documented in this encounter Visit Diagnoses Not on filedocumented in this encounter Additional Health Concerns Assessment Noted Time PHQ-9 Depression Total Score: 1 09/06/20 23 2:00 PM EST documented as of this encounter Care Teams Naval Aircrewman Operator Relationship Specialty Start Date End Date Shaikh Denis MD [address] [place] [address] PCP - General Internal Medicine 10/17/23 05/16/24 Renny Hansen MD [address] [facility] [address] [place] [address] PCP - General Internal Medicine 09/19/24 Renny Hansen MD [address] [facility] [address] [place] [address] PCP - Medical [facility] 09/12/2409/11 Jazmín Calvillo NP [address] [place] [address] Nurse Practitioner Family Medicine 05/17/24 09/18/24 Cindi Jenkins LSW Colorist Photography Family Medicine 11/06/24 12/05/24 Lisa Ramirez LPN 12/05/24 documented as of this encounter
--- OUTSIDE RECORDS SUMMARY | 2025-02-21 14:53 | XMS_ITS | Encounter Summary ---
Author Organization [facility] Address [address] [facility] [place] [address] Care Team Providers Care Certified Surgical Technician Name Role Phone Shaikh BEREKET Denis Primary Care Provider [phone] Jazmín Calvillo SEWING MACHINE OPERATOR PLASTIC ZIPPER Unavailable [phone] Renny Hansen MD Primary Care Provider [phone] Renny Hansen MD Unavailable [phone] Cindi Jenkins FLOWER PLANTER Unavailable [phone] Lisa Ramirez LPN Unavailable Unavailable Encounter [...] week 08/30/2023 How often do you attend catholic or anglican serv ices? Patient declined 08/30/2023 [...] Recorded Patient Health Questionnaire-2 Score 0 12/29/2023 [facility] Occupat ional Health [...] 05/16/2025 11:00 AM EDT Office Visit [facility] 112 [facility] 110 [place] [address] Renny Hansen MD 112 [facility] 110 [place] [address] documented as of this encounter Procedures Procedure Name Priority Date/Time Associated Diagnosis Comments XR SHOULDER 2+ VIEWS LEFT 02/22/2024 7:27 AM EDT documented in this encounter Results * XR shoulder 2+ views left (02/22/2024 7:27 AM EDT) Anatomical Region Laterality Modality Upper Extremities, Shoulder Left Radi ographic Imaging 02/22/2024 7:27 AM EDT Narrative 02/22/2024 7:30 AM EDT The [address] [address] XRay Report Signed Patient: MAXIMUS STARKS MR#: [id number] : 1945 Acct:[id number] Age/Sex: 78 / F ADM Date: 02/21/24 Loc: RAD Attending Dr: Mabel De León NP Ordering Physician: Mabel De León NP Date of Service: 02/21/24 Procedure(s): XR shoulder LT min 2V Accession Number(s): [id number] cc: Shaikh [place]; Mabel De León NP The [place] [id number] Patient Name: MAXIMUS STARKS MRN: [id number] date: 1945 Sex: F Assigned Patient Location: RAD Current Patient Location: Accession/Order Number: [id number] Exam Date: 02/21/2024 17:48 Report Date: 02/22/2024 [...] Signed By: 02/22/24 0730 DD/ 0727 TD/TT: Catechist: Procedure Note Radiology, Radiologist, MD - 02/22/2024 [place] [address] XRay Report Signed Patient: MAXIMUS STARKS TMR#: [id number] : 8Acct:[id number] Age/Sex: 78 / FADM Date: 02/21/24 Loc: RAD Attending Dr: Mabel De León NP Ordering Physician: Mabel De León NP Date of Service: 02/21/24 Procedure(s): XR shoulder LT min 2V Accession Number(s): [id number] cc: Shaikh [place] Denis; Mabel De León NP [place] [address] Patient Name: MAXIMUS STARKS MRN: [id number] date: 1945 Sex: F Assigned Patient [facility]: [facility] Current Patient Location: Accession/Order Number: [id number] Exam Date: 02/21/2024 17:48 Report Date: 02/22/2024 [...] Alston M.D. Signed By:02/22/24729 DD/ 6 TD/TT: Catechist: us Generic External Data Provider IMG XR PROCEDURES Final Result documented in this encounter Visit Diagnoses Not on filedocumented in this encounter Additional Health Concerns Assessment Noted Time PHQ-9 Depression Total Score: 1 09/06/20 23 2:00 PM EST documented as of this encounter Care Teams Certified Surgical Technician Relationship Specialty Start Date End Date Shaikh Denis MD [address] [place] [address] PCP - General Internal Medicine 10/17/23 05/16/24 Renny Hansen MD [address] [place] [address] PCP - General Internal Medicine 09/19/24 Renny Hansen MD [address] [facility] [address] [place] [address] PCP - Medical [place] 09/12/2409/11 Jazmín Calvillo NP [address] [facility] [place] [address] Nurse Practitioner Family Medicine 05/17/24 09/18/24 Cindi Jenkins LSW Electric Meter Reader Family Medicine 11/06/24 12/05/24 Lisa Ramirez LPN 12/05/24 documented as of this encounter
--- OUTSIDE RECORDS SUMMARY | 2025-02-21 14:54 | XMS_ITS | Encounter Summary ---
Author Organization [facility] Address [address] [facility] [place] [address] Care Team Providers Care Commercial Airplane Pilot Name Role Phone Renny Hansen MD Primary Care Provider [phone] Renny Hansen MD Unavailable [phone] Cindi Jenkins INFORMATION SYSTEMS PLANNER Unavailable [phone] Lisa Ramirez BUILDING DRAFTING OFFICER Unavailable Unavailable Encounter Details Date Type Department Care Team (Late st Contact Info) Description 09/21/2024 Abstract [facility] 112 [facility] 110 [place] [address] Renny Hansen MD 112 [facility] 110 [place] [address] Social History Tobacco Use Types [...] How often do you attend yazdanism or synagogue serv ices? Patient declined 08/30/2023 [...] Recorded Patient Health Questionnaire-2 Score 0 05/31/2024 [facility] - Occupational Stress Questionnaire Answer Date [...] place to sleep or slept in a skilled nursing (including now)? Patient refused 08/30/2023 Comments Unknown [...] Visit [facility] [address] [facility] 110 [place] [address] Renny Hansen MD [address] [facility] 110 [place] [address] documented as of this encounter Visit Diagnoses Not on filedocumented in this encounter Additional Health Concerns Assessment Noted Time PHQ-9 Depression Total Score: 1 09/06/20 23 2:00 PM EST documented as of this encounter Care Teams Commercial Airplane Pilot Relationship Specialty Start Date End Date Renny Hansen MD [address] [facility] 110 [place] [address] PCP - General Internal Medicine 09/19/24 Renny Hansen MD [address] [facility] 110 [place] [address] PCP - Medical [place] 09/12/2409/11 Cindi Jenkins, INFORMATION SYSTEMS PLANNER Security Researcher Family Medicine 11/06/24 12/05/24 Lisa Ramirez LPN 12/05/24 documented as of this encounter
--- OUTSIDE RECORDS SUMMARY | 2025-02-21 14:54 | XMS_ITS | Encounter Summary ---
Author Organization [facility] Address [address] [facility] [place] [address] Care Team Providers Care Housing Director Name Role Phone Renny Hansen MD Primary Care Provider [phone] Renny Hansen MD Unavailable [phone] OPERATIONS CLERK Unavailable [phone] Lisa Ramirez JOB TRACER Unavailable Unavailable Encounter Details Date Type Department Care Team (Late st Contact Info) Description 10/18/2024 Abstract [facility] [address] [facility] 110 [place] [address] Renny Hansen MD 112 [facility] 110 [place], [place] [address] Social History Tobacco Use Types Packs/Day Years [...] file 10/10/2024 How often do you attend lutheran or jain serv ices? Patient declined 10/10/2024 Do you belong to any clubs o r organizations such as lutheran groups, unions, fraternal [...] Patient Health Questionnaire-2 Score 0 10/17/2024 [facility] Occupat ional Health - [...] a usp (including now)? Patient refused 08/30/2023 Housing Stability Vital Sign Answer Ananda e Recorded In the last 12 months, was t here a time when you were not able to pay the mortgage or rent on time? No 10/10/2024 Number of Times Moved in the Last Year Not on fi le 10/10/2024 At any time in the past 12 m [facility], were you homeless or living in a usp (including now)? No 10/10/2024 Comments Unknown Sex and Gender Information Value Date Recorded Sex Assigned at Not on file Legal Sex Female 6:35 PM EDT Gender Identity Not on file Sexual Orientation Not on file documented as of this encounter Plan of Treatment Upcoming Encounters Date Type Department Care Team (Late st Contact Info) Description 05/16/2025 11:00 AM EDT Office Visit [facility] [address] [facility] 110 [place] [address] Renny Hansen MD 112 [facility] 110 [place] [address] documented as of this encounter Visit Diagnoses Not on filedocumented in this encounter Additional Health Concerns Assessment Noted Time PHQ-9 Depression Total Score: 1 09/06/20 23 2:00 PM EST documented as of this encounter Care Teams Housing Director Relationship Specialty Start Date End Date Renny Hansen MD [address] [facility] 110 [place] [address] PCP - General Internal Medicine 09/19/24 Renny Hansen MD [address] [facility] 110 [place] [address] PCP - Medical [place] 09/12/2409/11 Cindi Jenkins LSW Forensic Medical Examiner Family Medicine 11/06/24 12/05/24 Lisa Ramirez LPN 12/05/24 documented as of this encounter
--- OUTSIDE RECORDS SUMMARY | 2025-02-21 14:54 | XMS_ITS | Encounter Summary ---
Author Organization [facility] Address [address] [place] [address] Care Team Providers Care Fur Dyer Name Role Phone Shaikh BEREKET Denis Primary Care Provider [phone] Jazmín Calvillo DIRECTOR OF MANAGED SERVICES Unavailable [phone] Renny Hansen MD Primary Care Provider [phone] Renny Hansen MD Unavailable [phone] Cindi Jenkins ADVANCED PRACTICE PROVIDER Unavailable [phone] Lisa Ramirez CANCER PROGRAM DIRECTOR Unavailable Unavailable Encounter Details Date Type Department Care Team (Late st Contact Info) Description 11/14/2023 [facility] [address] [place] [address] Shaikh Denis MD [address] [place] [address] Social History Tobacco Use Types Packs/Day Years [...] How often do you attend cheondoism or taoism serv ices? Patient declined 08/30/2023 Do you [...] Recorded Patient Health Questionnaire-2 Score 0 11/07/2023 [facility] - Occupational [...] 05/16/2025 11:00 AM EDT Office Visit [facility] 112 [facility] 110 [place] [address] Renny Hansen MD 112 [facility] 110 [place] [address] documented as of this encounter Procedures Procedure [...] documented as of this encounter Care Teams Fur Dyer Relationship Specialty Start Date End Date Shaikh Denis MD [address] [place] [address] PCP - General Internal Medicine 10/17/23 05/16/24 Renny Hansen MD [address] [facility] 110 [place] [address] PCP - General Internal Medicine 09/19/24 Renny Hansen MD [address] [facility] 110 [place] [address] PCP - Medical [facility] 09/12/2409/11 Jazmín Calvillo NP [address] [place] [address] Nurse Practitioner Family Medicine 05/17/24 09/18/24 Cindi Jenkins LSW Board Worker Family Medicine 11/06/24 12/05/24 Lisa Ramirez LPN 12/05/24 documented as of this encounter
--- OUTSIDE RECORDS SUMMARY | 2025-02-21 14:54 | XMS_ITS | Encounter Summary ---
Author Organization [facility] Address [address] [place] [address] Care Team Providers Care Meter And Service Line Inspector Name Role Phone Shaikh BEREKET Denis Primary Care Provider [phone] Jazmín Calvillo CABIN WORKER Unavailable Renny Hansen MD Primary Care Provider [phone] Renny Hansen MD Unavailable [phone] Cindi Jenkins LINING STAMPER Unavailable [phone] Lisa Ramirez LPN Unavailable Unavailable Encounter Details Date Type Department Care Team (Late st Contact Info) Description 03/02/2024 Clinisync Result Encounter [facility] External Department Unsolicited Shaikh Denis MD [address] [place] [address] Social History Tobacco Use Types Packs/Day Years [...] week 08/30/2023 How often do you attend adventist or sikhism serv ices? Patient declined 08/30/2023 Do you belong to any clubs o r organizations such as adventist groups, unions, fraternal [...] Recorded Patient Health Questionnaire-2 Score 0 02/27/2024 [facility] Occupat ional Health - [...] 05/16/2025 11:00 AM EDT Office Visit [facility] 112 [facility] 110 [place] [address] Renny Hansen MD 112 [facility] 110 [place] [address] documented as of this encounter Procedures Procedure Name Priority Date/Time Associated Diagnosis Comments CA ECHO DOPPLER COMPLETE 03/02/2024 9:05 AM EDT documented in this encounter Results * CA ECHO DOPPLER COMPLETE (03/02/2024 9:05 AM EDT) Anatomical Region Laterality Modality Other 03/02/2024 9:05 AM EDT Narrative 03/02/2024 9:06 AM EDT The [address] [address] Cardiology Report Signed Patient: MAXIMUS STARKS MR#: [id number] : 1945 Acct:[id number] Age/Sex: 78 / F ADM Date: 02/29/24 Loc: CARD Attending Dr: Shaikh Cira Kilgore Ordering Physician: Shaikh Magui Denis Date of Service: 02/29/24 Procedure(s): CA echo doppler complete Accession Number(s): [id number] cc: Shaikh Magui Denis Patient Name: MAXIMUS STARKS MR#: [id number] : 1945 Exam Date: 02/29/2024 Ordering Doctor: [...] SALAZAR Signed By: 03/02/24905 DD/ 4 TD/TT: Tv Technician: Procedure Note Radiology, Radiologist, MD - 03/02/2024 [place] [address] Cardiology Report Signed Patient: MAXIMUS STARKS TMR#: [id number] : 8Acct:[id number] Age/Sex: 78 / FADM Date: 02/29/24 Loc: CARD Attending Dr: Shaikh Cira Kilgore Ordering Physician: Shaikh Magui Denis Date of Service: 02/29/24 Procedure(s): CA echo doppler complete Accession Number(s): [id number] cc: Shaikh Magui Denis Patient Name: MAXIMUS STARKS MR#: [id number] : 1945 Exam Date: 02/29/2024 Ordering Doctor: [...] SAKINA SALAZAR Signed By:03/02/24905 DD/ 4 TD/TT: Tv Technician: Shaikh Cira [facility] Final Result documented in this encounter Visit Diagnoses Not on filedocumented in this encounter Additional Health Concerns Assessment Noted Time PHQ-9 Depression Total Score: 1 09/06/20 23 2:00 PM EST documented as of this encounter Care Teams Meter And Service Line Inspector Relationship Specialty Start Date End Date Shaikh Denis MD [address] [place] [address] PCP - General Internal Medicine 10/17/23 05/16/24 Renny Hansen MD [address] [facility] 110 [place] [address] PCP - General Internal Medicine 09/19/24 Renny Hansen MD [address] [facility] 110 [place] [address] PCP - Medical [facility] 09/12/2409/11 Jazmín Calvillo NP [address] [place] [address] Nurse Practitioner Family Medicine 05/17/24 09/18/24 Cindi Jenkins LSW Gear Setter Family Medicine 11/06/24 12/05/24 Lisa Ramirez LPN 12/05/24 documented as of this encounter
--- OUTSIDE RECORDS SUMMARY | 2025-02-21 14:54 | XMS_ITS | Encounter Summary ---
Author Organization [facility] Address [address] [facility] [place] [address] Care Team Providers Care Retort Setter Name Role Phone Renny Hansen MD Primary Care Provider [phone] Renny Hansen MD Unavailable [phone] Lisa Ramirez LPN Unavailable Unavailable Encounter [...] often do you attend chur ch or orthodox services? Patient declined 11/12/2024 Do you belong [...] Recorded Patient Health Questionnaire-2 Score 0 10/17/2024 [facility] - Occupational [...] any time in the past 12 m [facility], were you homeless or living [...] WAY [facility] 110 [place] [address] Renny Hansen MD [address] [facility] 110 [place] [address] documented as of this encounter Visit Diagnoses Not on filedocumented in this encounter Additional Health Concerns Assessment Noted Time PHQ-9 Depression Total Score: 1 09/06/20 23 2:00 PM EST documented as of this encounter Care Teams Retort Setter Relationship Specialty Start Date End Date Renny Hansen MD [address] [facility] 110 [place] [address] PCP - General Internal Medicine 09/19/24 Renny Hansen MD 112 [place] [address] PCP - Medical [place] 09/12/2409/11 Lisa Ramirez LPN 12/05/24 documented as of this encounter
--- OUTSIDE RECORDS SUMMARY | 2025-02-21 14:54 | XMS_ITS | Encounter Summary ---
Author Organization [facility] Address [address] [place] [address] Care Team Providers Care Court Attendant Name Role Phone Renny Hansen MD Primary Care Provider [phone] Balta Cardenas MD Unavailable [phone] Reason for Visit * Reason Onset Date Comments Med Refill 02/08/2025 Encounter Details Date Type Department Care Team (Late st Contact Info) Description 02/08/2025 Refill [facility] [address] [place] [address] Mg [place] Essential hypertension Social History Tobacco Use Types [...] Info) Description 05/15/2025 11:00 AM EDT Follow-Up [facility] Infectious Disease [address] [place] [address] Ortega Hines MD [address] [facility]/[place] [address] documented as of this encounter Visit Diagnoses Diagnosis Essential hypertension Unspecified essential hypertension documented in this encounter Care Teams Court Attendant Relationship Specialty Start Date End Date Renny Hansen MD 112 [facility] 110 [place] [address] PCP - General Internal Medicine 07/18/24 Balta Cardenas MD [address] [place] [address] Referring Physician 11/15/24 documented as of this encounter
--- OUTSIDE RECORDS SUMMARY | 2025-02-21 14:54 | XMS_ITS | Encounter Summary ---
Author Organization [facility] Address [address] [facility] [place] [address] Care Team Providers Care Simplex Operator Name Role Phone Renny Hansen MD Primary Care Provider [phone] Renny Hansen MD Unavailable [phone] Cindi Jenkins CENTRIFUGAL CHILLER TECHNICIAN Unavailable [phone] Lisa Ramirez DIRECTOR AND PROFESSOR Unavailable Unavailable Encounter Details Date Type Department Care Team (Late st Contact Info) Description 10/30/2024 Abstract [facility] 112 [facility] 110 [place] [address] Renny Hansen MD 112 [facility] 110 [place] [address] Social History Tobacco Use Types [...] file 10/10/2024 How often do you attend muslim or latter day serv ices? Patient declined 10/10/2024 Do you belong to any clubs o r organizations such as muslim groups, unions, fraternal or athletic groups, or [...] Recorded Patient Health Questionnaire-2 Score 0 10/17/2024 [facility] of Occupat ional Health - [...] in the past 12 m [facility], were you homeless or living in a fci (including now)? No 10/10/2024 Comments Unknown Sex and Gender Information Value Date Recorded Sex Assigned at Not on file Legal Sex Female 6:35 PM EDT Gender Identity Not on file Sexual Orientation Not on file documented as of this encounter Plan of Treatment Upcoming Encounters Date Type Department Care Team (Late st Contact Info) Description 05/16/2025 11:00 AM EDT Office Visit [facility] 112 [facility] 110 [place] [address] Renny Hansen MD 112 [facility] 110 [place] [address] documented as of this encounter Visit Diagnoses Not on filedocumented in this encounter Additional Health Concerns Assessment Noted Time PHQ-9 Depression Total Score: 1 09/06/20 23 2:00 PM EST documented as of this encounter Care Teams Simplex Operator Relationship Specialty Start Date End Date Renny Hansen MD [address] [facility] 110 [place] [address] PCP - General Internal Medicine 09/19/24 Renny Hansen MD [address] [facility] 110 [place] [address] PCP - Medical [place] 09/12/2409/11 Cindi Jenkins LSW Shoe Treer Family Medicine 11/06/24 12/05/24 Lisa Ramirez LPN 12/05/24 documented as of this encounter
--- OUTSIDE RECORDS SUMMARY | 2025-02-21 14:54 | XMS_ITS | Encounter Summary ---
Author Organization [facility] Address [address] [place] [address] Care Team Providers Care Shovel Engineer Name Role Phone Renny Hansen MD Primary Care Provider [phone] Renny Hansen MD Unavailable [phone] Cindi Jenkins DEALER RELATIONSHIP MANAGER Unavailable [phone] Lisa Ramirez LPN Unavailable Unavailable Encounter Details Date Type Department Care Team (Late st Contact Info) Description 10/16/2024 External Result Encounter [facility] External Department Unsolicited Dmitriy Duque, DO 703 [facility] 150 [place] [address] Social History Tobacco Use Types Packs/Day Years [...] file 10/10/2024 How often do you attend denominational or buddhist serv ices? Patient declined 10/10/2024 Do you [...] Recorded Patient Health Questionnaire-2 Score 0 10/17/2024 [facility] of Occupat ional Health - Occupational [...] a prison (including now)? Patient refused 08/30/2023 Housing Stability Vital Sign Answer Ananda e Recorded In the last 12 months, was t here a time when you were not able to pay the mortgage or rent on time? No 10/10/2024 Number of Times Moved in the Last Year Not on fi le 10/10/2024 At any time in the past 12 m [facility], were you homeless or living in a prison (including now)? No 10/10/2024 Comments Unknown Sex [...] CI FM [address] [place] 110 [place] [address] Renny Hansen MD 112 [facility] 110 [place] [address] documented as of this encounter Procedures Procedure [...] Benton Jr., D.OMeena10/16/2024 2:20 PM Dictation Location: [facility] Tech: Ghazal Barber Transcribed By: STAR 10/16/24 1420 Dictated By: Francisco J Benton Jr, DO 10/16/24 1343 Signed By: <Electronically signed by Francisco J Benton Jr, DO in OV> 10/16/24 1420 Narrative 10/16/2024 2:30 PM EST [facility] [place] [address] [place], [place] [id number] Ultrasound Report Signed Patient: Breann Starks MR#: [id number] : 1945 Acct:[id number] Age/Sex: 78 / F ADM Date: 10/16/24 Loc: [facility] Room: Type: REG CLI Attending Dr: Dmitriy Duque DO Ordering Provider: Dmitriy Duque DO Date of Service: 10/16/24 US/US axilla: R92.8 ([id number]) MM/MM diagnostic mammo BI w/CAD: ENLARGED LT [...] Procedure Note Radiology, Radiologist, MD - 10/16/2024 [facility] [place] [address] [place] [address] Ultrasound Report Signed Patient: Breann Starks TMR#: [id number] : 8Acct:[id number] Age/Sex: 78 / FADM Date: 10/16/24 Loc: [facility] Room:Type: REG CLI Attending Dr: Dmitriy Duque DO Ordering Provider: Dmitriy Duque DO Date of Service: 10/16/24 US/US axilla: R92.8 ([id number]) MM/MM diagnostic mammo BI w/CAD: ENLARGED LT [...] Benton Jr., D.Jaleel10/16/2024 2:20 PM Dictation Location: [facility] Tech: Ghazal Wilson; Kadi Barber Transcribed By: [...] documented as of this encounter Care Teams Shovel Engineer Relationship Specialty Start Date End Date Renny Hansen MD [address] [facility] 110 [place] [address] PCP - General Internal Medicine 09/19/24 Renny Hansen MD [address] [facility] 110 [place] [address] PCP - Medical [place] 09/12/2409/11 Cindi Jenkins LSW Hot Strip Mill Inspector Family Medicine 11/06/24 12/05/24 Lisa Ramirez LPN 12/05/24 documented as of this encounter
--- OUTSIDE RECORDS SUMMARY | 2025-02-21 14:54 | XMS_ITS | Encounter Summary ---
Author Organization [facility] Address [address] [place] [address] Care Team Providers Care Tie Fastener Name Role Phone Shaikh BEREKET Denis Primary Care Provider [phone] Shaikh BEREKET Denis Primary Care Provider [phone] Jazmín Calvillo REPRODUCER Unavailable [phone] Renny Hansen MD Primary Care Provider [phone] Renny Hansen MD Unavailable [phone] Cindi Jenkins GROCERY WORKER Unavailable [phone] Lisa Ramirez CONTACT LENS MANUFACTURER Unavailable Unavailable Encounter Details Date Type Department Care Team (Late st Contact Info) Description 09/07/2023 Abstract [facility] [address] [place] [address] Shaikh Denis MD [address] [place] [address] Social History Tobacco Use Types Packs/Day Years [...] week 08/30/2023 How often do you attend worship or pentecostal serv ices? Patient declined 08/30/2023 Do you belong to any clubs o r organizations such as worship groups, unions, fraternal [...] Recorded Patient Health Questionnaire-2 Score 0 09/06/2023 [facility] of Occupat ional Health - Occupational [...] 05/16/2025 11:00 AM EDT Office Visit [facility] [address] [facility] 110 [place] [address] Renny Hansen MD [address] [facility] 110 [place] [address] documented as of this encounter Visit Diagnoses Not on filedocumented in this encounter Additional Health Concerns Assessment Noted Time PHQ-9 Depression Total Score: 1 09/06/20 23 2:00 PM EST documented as of this encounter Care Teams Tie Fastener Relationship Specialty Start Date End Date Shaikh Denis MD PCP - General Internal Medicine 04/05/23 10/16/23 Shaikh Denis MD [address] [place] [address] PCP - General Internal Medicine 10/17/23 05/16/24 Renny Hansen MD [address] [facility] 110 [place] [address] PCP - General Internal Medicine 09/19/24 Renny Hansen MD [address] [facility] 110 [place] [address] PCP - Medical [facility] 09/12/2409/11 Jazmín Calvillo NP [address] [place] [address] Nurse Practitioner Family Medicine 05/17/24 09/18/24 Cindi Jenkins LSW Supervisor [place]ime Family Medicine 11/06/24 12/05/24 Lisa Ramirez LPN 12/05/24 documented as of this encounter
--- OUTSIDE RECORDS SUMMARY | 2025-02-21 14:54 | XMS_ITS | Encounter Summary ---
Author Organization [facility] Address [address] [place] [address] Care Team Providers Care Temporary Office Assistant Name Role Phone Shaikh BEREKET Denis Primary Care Provider [phone] Jazmín Calvillo SENIOR RESERVATIONS AGENT Unavailable [phone] Renny Hansen MD Primary Care Provider [phone] Renny Hansen MD Unavailable [phone] Cindi Jenkins RN ORTHOPEDIC Unavailable [phone] Lisa Ramirez LPN Unavailable Unavailable Encounter Details Date Type Department Care Team (Late st Contact Info) Description 03/01/2024 Clinisync Result Encounter [facility] External Department Unsolicited Shaikh Denis MD [address] [place] [address] Social History Tobacco Use Types Packs/Day Years [...] week 08/30/2023 How often do you attend methodist or adventist serv ices? Patient declined 08/30/2023 Do you belong to any clubs o r organizations such as methodist groups, unions, fraternal or athletic groups, or [...] Recorded Patient Health Questionnaire-2 Score 0 02/27/2024 [facility] - Occupational Stress [...] 05/16/2025 11:00 AM EDT Office Visit [facility] 112 [facility] 110 [place] [address] Renny Hansen MD 112 [facility] 110 [place] [address] documented as of this encounter Procedures Procedure Name Priority Date/Time Associated Diagnosis Comments XR CHEST 2V 03/01/2024 9:53 AM EDT documented in this encounter Results * XR CHEST 2V (03/01/2024 9:53 AM EDT) Anatomical Region Laterality Modality Other 03/01/2024 9:53 AM EDT Narrative 03/01/2024 9:56 AM EDT The [address] [address] XRay Report Signed Patient: BREANN STARKS MR#: [id number] : 1945 Acct:[id number] Age/Sex: 78 / F ADM Date: 02/29/24 Loc: CARD Attending Dr: Shaikh Cira Kilgore Ordering Physician: Shaikh Magui Denis Date of Service: 02/29/24 Procedure(s): XR chest 2V Accession Number(s): [id number] cc: Shaikh Magui Denis The [address] [address] Patient Name: BREANN STARKS MRN: [id number] date: 1945 Sex: F Assigned Patient Location: CARD Current Patient Location: LAB Accession/Order Number: [id number] Exam Date: 02/29/2024 10:05 Report Date: 03/01/2024 [...] Signed By: 03/01/24 0956 DD/ 0953 TD/TT: Trade Show Specialist: Procedure Note Radiology, Radiologist, MD - 03/01/[address] [address] XRay Report Signed Patient: BREANN STARKS TMR#: [id number] : 8Acct:[id number] Age/Sex: 78 / FADM Date: 02/29/24 Loc: CARD Attending Dr: Shaikh Cira Kilgore Ordering Physician: Shaikh Magui Denis Date of Service: 02/29/24 Procedure(s): XR chest 2V Accession Number(s): [id number] cc: Shaikh Magui Denis [facility] [address] [place], [place] [address] Patient Name: BREANN STARKS MRN: [id number] date: 1945 Sex: F Assigned Patient Location: CARD Current Patient Location: LAB Accession/Order Number: [id number] Exam Date: 02/29/2024 10:05 Report Date: 03/01/2024 [...] Mantilla M.D. Signed By:03/01/24 0956 DD/ TD/TT: Trade Show Specialist: us Shaikh Cira [facility] Final Result documented in this encounter Visit Diagnoses Not on filedocumented in this encounter Additional Health Concerns Assessment Noted Time PHQ-9 Depression Total Score: 1 09/06/20 23 2:00 PM EST documented as of this encounter Care Teams Temporary Office Assistant Relationship Specialty Start Date End Date Shaikh Denis MD [address] [place] [address] PCP - General Internal Medicine 10/17/23 05/16/24 Renny Hansen MD 112 [facility] 110 [place] [address] PCP - General Internal Medicine 09/19/24 Renny Hansen MD 112 [facility] 110 [place] [address] PCP - Medical [facility] 09/12/2409/11 Jazmín Calvillo NP [address] [place] [address] Nurse Practitioner Family Medicine 05/17/24 09/18/24 Cindi Jenkins LSW Baked And Graphite Inspector Family Medicine 11/06/24 12/05/24 Lisa Ramirez LPN 12/05/24 documented as of this encounter
--- OUTSIDE RECORDS SUMMARY | 2025-02-21 14:54 | XMS_ITS | Encounter Summary ---
Author Organization [facility] Address [address] [facility] [place] [address] Care Team Providers Care Sales Promoter Name Role Phone Jazmín Calvillo MILLER ROD MILL Unavailable [phone] Renny Hansen MD Primary Care Provider [phone] Renny Hansen MD Unavailable [phone] Cindi Jenkins CAKE STRIPPER Unavailable [phone] Lisa Ramirez BIN CLEANER Unavailable Unavailable Reason for Referral * Consultation (Routine) - Closed Specialty Diagnoses / Procedures Referred By Millie egan Referred To Contact Neurology Diagnoses Neck pain on left side Procedures [place] OFFICE/OUTPATIENT [facility] MDM 60 MINUTES Renny Hansen MD [address] [address] Phone: tel: fax: Wil Lord MD Referral ID Status Reason Start Date Expiration Date V isits Requested Visits Authorized [id number] Closed Specialty Services Required 09/13/2024 03/12/2025 1 1 Encounter Details Date Type Department Care Team (Late st Contact Info) Description 09/13/2024 Abstract [facility] 112 [facility] 110 [place] [address] Renny Hansen MD 112 [facility] 110 [place], [place] [id number] Neck pain on left side Social History [...] How often do you attend congregational or adventism serv ices? Patient declined 08/30/2023 [...] AM EDT Office Visit [facility] 112 [facility] 110 [place] [address] Renny Hansen MD 112 [facility] 110 [place] [address] Scheduled Referrals Name Type Priority Associated Diagnoses [...] documented as of this encounter Care Teams Sales Promoter Relationship Specialty Start Date End Date Renny Hansen MD 112 [facility] 110 [place], [place] [id number] PCP - General Internal Medicine 09/19/24 Renny Hansen MD 112 [facility] 110 [place] [address] PCP - Medical [place] 09/12/2409/11 Jazmín Calvillo NP Nurse Practitioner Family Medicine 05/17/24 09/18/24 Cindi Jenkins LSW Ip Technology Transactions Attorney Family Medicine 11/06/24 12/05/24 Lisa Ramirez LPN 12/05/24 documented as of this encounter
--- OUTSIDE RECORDS SUMMARY | 2025-02-21 14:54 | XMS_ITS | Encounter Summary ---
Author Organization [facility] Address [address] [place] [address] Care Team Providers Care Project Technician Name Role Phone Renny Hansen MD Primary Care Provider [phone] Renny Hansen MD Unavailable Lisa Ramirez LPN Unavailable Unavailable Reason for Visit * Reason Onset Date Comments Med Refill 02/08/2025 Encounter Details Date Type Department Care Team (Late st Contact Info) Description 02/08/2025 Refill [facility] 112 [facility] 110 [place] [address] Renny Hansen MD 112 [facility] 110 [place] [address] Persistent atrial fibrillation (HCC) Social [...] often do you attend chur ch or sikh services? Patient declined 11/12/2024 Do you belong to any clubs o r organizations such as rastafari groups, unions, fraInspur Group or athletic groups, or school groups? No [...] Recorded Patient Health Questionnaire-2 Score 0 10/17/2024 [facility] - Occupational [...] senior living (including now)? Patient refused 08/30/2023 Housing Stability [...] time in the past 12 [address] [place], were you homeless or living in a senior living (including now)? No 11/12/2024 Comments Unknown Sex [...] [facility] 112 [facility] 110 [place] [address] Renny Hansen MD 112 [facility] 110 [place] [address] documented as of this encounter Visit Diagnoses Diagnosis Persistent atrial fibrillation (HCC) Atrial fibrillation documented in this encounter Additional Health Concerns Assessment Noted Time PHQ-9 Depression Total Score: 1 09/06/20 23 2:00 PM EST documented as of this encounter Care Teams Project Technician Relationship Specialty Start Date End Date Renny Hansen MD 112 [facility] 110 [place] [address] PCP - General Internal Medicine 09/19/24 Renny Hansen MD 112 [facility] 110 [place] [address] PCP - Medical [place] 09/12/2409/11 Lisa Ramirez LPN 12/05/24 documented as of this encounter
--- OUTSIDE RECORDS SUMMARY | 2025-02-21 14:54 | XMS_ITS | Clinical Summary ---
Author Organization [facility] Address [address] [place] [address] Care Team Providers Care Psychiatry Adult Physician Name Role Phone Paulette Johnson MD Primary Care Provider [phone] Scott Cruz MD Unavailable Allergies Active Allergy [...] Completed 08/25/2023 Insurance [employer] MEDICARE Care Teams Psychiatry Adult Physician Relationship Specialty Start Date End Date Paulette Johnson MD [address] [place] [address] PCP - General 01/05/06 Scott Cruz MD [address] [address] Referring Infectious Diseases 05/07/24
--- OUTSIDE RECORDS SUMMARY | 2025-02-21 14:54 | XMS_ITS | Encounter Summary ---
Author Organization [facility] Address [address] [facility] [place] [address] Care Team Providers Care Huc Ob Name Role Phone Renny Hansen MD Primary Care Provider [phone] Renny Hansen MD Unavailable [phone] Cindi Jenkins PACKAGING MECHANIC Unavailable [phone] Lisa Ramirez YARN CONDITIONER Unavailable Unavailable Encounter Details Date Type Department Care Team (Late st Contact Info) Description 09/26/2024 Abstract [facility] 112 [facility] 110 [place] [address] Renny Hansen MD 112 [facility] 110 [place] [address] Social History Tobacco Use Types [...] week 08/30/2023 How often do you attend evangelical or temple serv ices? Patient declined 08/30/2023 Do you [...] Patient Health Questionnaire-2 Score 0 05/31/2024 [facility] Occupat ional [facility] - Occupational Stress Questionnaire [...] Visit [facility] [address] [facility] [address] [place] [address] Renny Hansen MD [address] [facility] 110 [place] [address] documented as of this encounter Visit Diagnoses Not on filedocumented in this encounter Additional Health Concerns Assessment Noted Time PHQ-9 Depression Total Score: 1 09/06/20 23 2:00 PM EST documented as of this encounter Care Teams Huc Ob Relationship Specialty Start Date End Date Renny Hansen MD [address] [facility] 110 [place] [address] PCP - General Internal Medicine 09/19/24 Renny Hansen MD [address] [facility] 110 [place] [address] PCP - Medical [place] 09/12/2409/11 Cindi Jenkins, PACKAGING MECHANIC Tow Mate Family Medicine 11/06/24 12/05/24 Lisa Ramirez LPN 12/05/24 documented as of this encounter
--- OUTSIDE RECORDS SUMMARY | 2025-02-21 14:54 | XMS_ITS | Encounter Summary ---
Author Organization [facility] Address [address] [facility] [place] [address] Care Team Providers Care Sea Kayaking Guide Name Role Phone Renny Hansen MD Primary Care Provider [phone] Renny Hansen MD Unavailable [phone] Lisa Ramirez LPN Unavailable Unavailable Encounter Details Date Type Department Care Team (Late st Contact Info) Description 02/18/2025 Bamboo flowsheet [facility] [address] [facility] 110 [place] [address] Renny Hansen MD [address] [place] 110 [place], [place] [address] Social History Tobacco Use Types Packs/Day Years [...] How often do you attend chur or restorationist services? Patient declined 11/12/2024 Do you belong [...] Recorded Patient Health Questionnaire-2 Score 0 02/18/2025 [facility] - [...] a intermediate (including now)? Patient refused 08/30/2023 Housing Stability [...] were you homeless or living in a intermediate (including now)? No 11/12/2024 Comments Unknown Sex [...] EDT Office Visit [facility] 112 [facility] 110 [place] [address] Renny Hansen MD 112 [facility] 110 [place], [place] [address] documented as of this encounter Visit Diagnoses Not on filedocumented in this encounter Additional Health Concerns Assessment Noted Time PHQ-9 Depression Total Score: 1 09/06/20 23 2:00 PM EST documented as of this encounter Care Teams Sea Kayaking Guide Relationship Specialty Start Date End Date Renny Hansen MD [address] [facility] 110 [place] [address] PCP - General Internal Medicine 09/19/24 Renny Hansen MD [address] [facility] 110 [place] [address] PCP - Medical [place] 09/12/2409/11 Lisa Ramirez LPN 12/05/24 documented as of this encounter
--- OUTSIDE RECORDS SUMMARY | 2025-02-21 14:54 | XMS_ITS | Encounter Summary ---
Author Organization [facility] Address [address] [facility] [place] [address] Care Team Providers Care Director Of Broadcast Name Role Phone Renny Hansen MD Primary Care Provider [phone] Renny Hansen MD Unavailable [phone] Cindi Jenkins TRIAGE REGISTER NURSE Unavailable [phone] Lisa Ramirez SUPPORT TEACHER Unavailable Unavailable Encounter Details Date Type Department Care Team (Late st Contact Info) Description 10/03/2024 Orders Only [facility] [address] [place] [address] [place] [address] Carlene Yan LPN [address] [place] [address] Nausea Social History Tobacco Use Types Packs/Day [...] often do you attend latter day or nondenominational serv ices? Patient declined 08/30/2023 Do you [...] Recorded Patient Health Questionnaire-2 Score 0 05/31/2024 [facility] Occupat ional Health - Occupational [...] Visit [facility] [address] [facility] 110 [place] [address] Renny Hansen MD [address] [facility] 110 [place] [address] documented as of this encounter Visit Diagnoses Diagnosis Nausea Nausea alone documented in this encounter Additional Health Concerns Assessment Noted Time PHQ-9 Depression Total Score: 1 09/06/20 23 2:00 PM EST documented as of this encounter Care Teams Director Of Broadcast Relationship Specialty Start Date End Date Renny Hansen MD [address] [facility] 110 [place] [address] PCP - General Internal Medicine 09/19/24 Renny Hansen MD [address] [place] [address] [place] [address] PCP - Medical [place] 09/12/2409/11 Cindi Jenkins LSW Custom Feed Corn Operator Family Medicine 11/06/24 12/05/24 Lisa Ramirez LPN 12/05/24 documented as of this encounter
--- OUTSIDE RECORDS SUMMARY | 2025-02-21 14:54 | XMS_ITS | Clinical Summary ---
Author Organization [facility] Address [address] [place] [address] Care Team Providers Care Accounting Consultant Name Role Phone Renny Hansen MD Primary Care Provider [phone] Balta Cardenas MD Unavailable [phone] Allergies No known active allergies Medications cholecalciferol [...] get device check to assess AF burden -[id number] 3 -Continue Xarelto 20 mg daily, continue propafenone to 25 mg 3 times a day Sinus node dysfunction 10/07/2020 Assessment & Plan (11/18/2022 10:55 AM EST): - S/p PPM [place] scientific -We will have her scheduled for [...] Team Description 02/20/2025 11:00 AM EDT Follow-Up [facility] Infectious Disease [address] [place] [phone] Ortega Hines MD Pain in joint of left shoulder 02/08/2025 Refill [facility] [place] [facility] [place] [address] [place] [address] Tina Xie MA Essential hypertension 01/22/2025 3:00 PM EDT Ancillary Procedure [place] [address] [place] [facility] [place] [address] Encounter for implantable defibrillator reprogramming or check 01/18/2025 Telephone [facility] Infectious Disease [address] [place] [phone] Ortega Hines MD 01/17/2025 10:00 AM EDT Office Visit [facility] Infectious Disease [address] [place] [phone] Ortega Hines MD 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); Pain in joint of left shoulder 01/17/2025 Orders Only [facility] Dermatology [address] [place] [phone] Purnima Quintero MA Pain in joint of left shoulder 01/07/2025 Telephone [facility] Infectious Disease [address] [place] [phone] Rosemarie Mistry MA 01/04/2025 Telephone [place] [address] [place] [facility] [place] [address] Lisa Gonzalez MA 01/01/2025 1:40 PM EDT Follow-Up [facility] [address] [place] [address] [place] [phone] Jan Albert MD 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, unspecified complication, subsequent encounter (Primary Dx); Pain in joint of left shoulder 12/28/2024 Telephone [facility] [address] [place] [facility] [place] [address] Roopa Mensah MA 12/28/2024 Refill [place] [address] [place] [facility] [place] [address] Roopa Mensah MA Chronic diastolic heart failure (CMS/HCC) 12/28/2024 Refill [facility] [address] [place] [facility] [place] [address] Roopa Mensah MA Paroxysmal atrial fibrillation (CMS/HCC) 12/24/2024 1:40 PM EDT Office Visit [facility] [address] [place] [facility] [place] [address] Kellie Alva MD Paroxysmal A-fib (CMS/HCC) (Primary Dx); Sinus node dysfunction (CMS/HCC); Cardiac pacemaker in situ; Atherosclerosis of [place] coronary artery of [place] heart without angina pectoris; Pulmonary hypertension (CMS/HCC); Venous insufficiency; Chronic diastolic congestive heart failure (CMS/HCC); Pure hypercholesterolemia 12/04/2024 Refill [facility] Cardiology [address] [place] [address] Ingrid Cannon CNP Paroxysmal atrial fibrillation (CMS/HCC) 11/27/2024 1:30 PM EDT Lab [facility] [address] [place] [address] [place] [phone] Pain in joint of left shoulder 11/27/2024 1:00 PM EDT Follow-Up [facility] Orthopaedics [address] [place] [address] [place] [phone] Jan Albert MD Pain in joint of [...] Description 05/15/2025 11:00 AM EDT Follow-Up [facility] Infectious Disease [address] [place] [address] Ortega Hines MD [address] [facility]/[place] [address] Health Maintenance Due Date Last Done [...] Dmitriy Mahan MD CV IMPLANTABLE CARDIAC DEVICE MS OCEDURES Final Result * (ABNORMAL) CBC auto differential (01/17/2025 11:19 AM EDT) Only the most recent of2 resultswithin the time period is included. Auto WBC 7.39 4.00 - 10.60 10*3/uL 01/17/2025 5:59 PM EDT [facility] ([facility]) RBC 3.91 3.80 - 5.00 10*6/uL 01/17/2025 5:59 PM EDT [facility] ([facility]) Hemoglobin 9.8(L) 12.0 - 15.0 g/dL 01/17/2025 5:59 PM EDT [facility] ([facility]) Hematocrit 33.1(L) 36.0 - 45.0 % 01/17/2025 5:59 PM EDT [facility] ([facility]) MCV 84.7 82.0 - 98.0 fL 01/17/2025 5:59 PM EDT [facility] ([facility]) MCH 25.1(L) 27.0 - 33.0 pg 01/17/2025 5:59 PM EDT [facility] ([facility]) MCHC 29.6(L) 32.0 - 35.0 g/dL 01/17/2025 5:59 PM EDT [facility] ([facility]) RDW 18.4(H) 11.5 - 15.0 % 01/17/2025 5:59 PM EDT [facility] ([facility]) Neutrophils % 71.9 40.0 - 72.0 % 01/17/2025 5:59 PM EDT [facility] ([facility]) Lymphocytes % 17.9(L) 20.0 - 45.0 % 01/17/2025 5:59 PM EDT [facility] ([facility]) Monocytes % 6.8 5.0 - 12.0 % 01/17/2025 5:59 PM EDT [facility] ([facility]) Eosinophils % 2.2 0.0 - 6.0 % 01/17/2025 5:59 PM EDT [facility] ([facility]) Basophils % 0.9 0.0 - 1.0 % 01/17/2025 5:59 PM EDT [facility] ([facility]) Neutrophils Absolute 5.32 1.60 - 7.60 10*3/uL 01/17/2025 5:59 PM EDT [facility] ([facility]) Lymphocytes Absolute 1.32 1.20 - 4.00 10*3/uL 01/17/2025 5:59 PM EDT [facility] ([facility]) Monocytes Absolute 0.50 0.10 - 1.00 10*3/uL 01/17/2025 5:59 PM EDT [facility] ([facility]) Eosinophils Absolute 0.16 0.00 - 0.50 10*3/uL 01/17/2025 5:59 PM EDT [facility] ([facility]) Basophils Absolute 0.07 0.00 - 0.20 10*3/uL 01/17/2025 5:59 PM EDT [facility] ([facility]) Platelets 338 150 - 400 10*3/uL 01/17/2025 5:59 PM EDT [facility] ([facility]) nRBC % 0.0 0 % 01/17/2025 5:59 PM EDT [facility] ([facility]) Immature Granulocytes % 0.3 0.0 - 1.0 % 01/17/2025 5:59 PM EDT [facility] ([facility]) Immature Granulocytes Absolute 0.02 0.00 - 0.20 10*3/uL 01/17/2025 5:59 PM EDT [facility] ([facility]) Blood Venous blood specimen / Unknown Venipuncture / Unknown 01/17/2025 11:19 AM EDT 01/17/2025 11:19 AM EDT us Ortega Hines MD LAB BLOOD ORDERABLES Final Resu lt Performing Organization Address City/[facility] Co de Phone Number [facility] ([facility]) [address] [place] [address] * (ABNORMAL) C-reactive protein (01/17/2025 11:19 AM EDT) Only the most recent of2 resultswithin the time period is included. CRP 6.8(H) <=5.0 mg/L 01/18/2025 3:12 PM EDT [facility] ([facility]) Comment:Testing performed us ing a new methodology, turbidimetry. Normal ranges have been updated. Old normal range was <8 mg/L. Blood Venous blood specimen / Unknown Venipuncture / Unknown 01/17/2025 11:19 AM EDT 01/17/2025 11:19 AM EDT us Ortega Hines MD LAB BLOOD ORDERABLES Final Resu lt Performing Organization Address City/[facility]/ZIP Co de Phone Number [facility] ([facility]) [address] [place] [address] * (ABNORMAL) Basic metabolic panel (01/17/2025 11:19 AM EDT) Sodium 135(L) 136 - 145 mmol/L 01/17/2025 5:04 PM EDT [facility] ([facility]) Potassium 4.1 3.5 - 5.1 mmol/L 01/17/2025 5:04 PM EDT [facility] ([facility]) Chloride 103 98 - 107 mmol/L 01/17/2025 5:04 PM EDT [facility] ([facility]) CO2 26 21 - 31 mmol/L 01/17/2025 5:04 PM EDT [facility] ([facility]) BUN 17 7 - 25 mg/dL 01/17/2025 5:04 PM EDT [facility] ([facility]) Creatinine 0.64 0.60 - 1.20 mg/dL 01/17/2025 5:04 PM EDT [facility] ([facility]) Glucose 92 70 - 100 mg/dL 01/17/2025 5:04 PM EDT [facility] ([facility]) Calcium 8.9 8.6 - 10.3 mg/dL 01/17/2025 5:04 PM EDT [facility] ([facility]) Anion Gap 10 7 - 20 mmol/L 01/17/2025 5:04 PM EDT [facility] ([facility]) eGFR 91.0 >60.0 mL/min/1. 73m*2 01/17/2025 5:04 PM EDT [facility] ([facility]) Comment:[facility] s estimated glomerular filtration rate (eGFR) [...] BUN/Creatinine Ratio 26.6 04/2025 5:04 PM EDT [facility] ([facility]) Blood Venous blood specimen / Unknown Venipuncture / Unknown 01/17/2025 11:19 AM EDT 01/17/2025 11:19 AM EDT us Ortega Hines MD LAB BLOOD ORDERABLES Final Resu lt [facility] ([facility]) [address] [place] [address] * (ABNORMAL) Sedimentation rate (11/27/2024 1:27 PM EDT) Sed Rate 96(H) <30 mm/hr 11/27/2024 3:4 0 PM EDT [facility] ([facility]) Blood Venous blood specimen / Unknown Venipuncture / Unknown 11/27/2024 1:27 PM EDT 11/27/2024 3:16 PM EDT us Jan Albert MD LAB BLOOD ORDERABLES Final Resul t [facility] ([facility]) [address] [place] [address] from Last 3 Months Insurance [employer] Care Teams Accounting Consultant Relationship Specialty Start Date End Date Renny Hansen MD [address] [facility] [address] [place] [address] PCP - General Internal Medicine 07/18/24 Balta Cardenas MD [address] [place] [address] Referring Physician 11/15/24
--- OUTSIDE RECORDS SUMMARY | 2025-02-21 14:54 | XMS_ITS | Encounter Summary ---
Author Organization [facility] Address [address] [facility] [address] Care Team Providers Care Machinist Apprentice Name Role Phone Renny Hansen MD Primary Care Provider [phone] Renny Hansen MD Unavailable [phone] Lisa Ramirez LPN Unavailable Unavailable Encounter [...] often do you attend chur ch or protestant services? Patient declined 11/12/2024 Do you belong [...] Patient Health Questionnaire-2 Score 0 02/18/2025 [facility] of Occupat ional Health [...] a halfway (including now)? Patient refused 08/30/2023 Housing Stability [...] any time in the past 12 [facility] were you homeless or living in a halfway (including now)? No 11/12/2024 Comments Unknown Sex [...] 05/16/2025 11:00 AM EDT Office Visit [facility] [address] [facility] [address] [place] [address] Renny Hansen MD [address] [facility] 110 [place] [address] documented as of this encounter Visit Diagnoses Not on filedocumented in this encounter Additional Health Concerns Assessment Noted Time PHQ-9 Depression Total Score: 1 09/06/20 23 2:00 PM EST documented as of this encounter Care Teams Machinist Apprentice Relationship Specialty Start Date End Date Renny Hansen MD [address] [place] [address] [place], [place] [id number] PCP - General Internal Medicine 09/19/24 Renny Hansen MD [address] [place] [address] [place], [place] [address] PCP - Medical [place] MA 09/12/2409/11 Lisa Ramirez LPN 12/05/24 documented as of this encounter
--- OUTSIDE RECORDS SUMMARY | 2025-02-21 14:54 | XMS_ITS | Encounter Summary ---
Author Organization [facility] Address [address] [facility] [place] [address] Care Team Providers Care Associate Professor Of Communication Name Role Phone Jazmín Calvillo CASE MANAGEMENT DIRECTOR Unavailable [phone] Renny Hansen MD Primary Care Provider [phone] Renny Hansen MD Unavailable [phone] Cindi Jenkins COSMETIC SALES CONSULTANT Unavailable [phone] Lisa Ramirez CARTON LETTERING MACHINE OPERATOR Unavailable Unavailable Encounter Details Date Type Department Care Team (Late st Contact Info) Description 08/27/2024 Abstract [facility] [address] [place] [address] [place] [address] Unallocated, Noms Provider, [address] [place], [place] [address] Social History Tobacco Use Types Packs/Day Years [...] How often do you attend druze or islam serv ices? Patient declined 08/30/2023 Do you belong to any clubs o r organizations such as druze groups, unions, fraBigEvidence or athletic groups, or school groups? Yes [...] Recorded Patient Health Questionnaire-2 Score 0 05/31/2024 [facility] of Occupat ional [facility] - Occupational Stress Questionnaire Answer Date [...] [address] [facility] [address] [place] [address] Renny Hansen MD [address] [facility] [address] [place] [address] documented as of this encounter Visit Diagnoses Not on filedocumented in this encounter Additional Health Concerns Assessment Noted Time PHQ-9 Depression Total Score: 1 09/06/20 23 2:00 PM EST documented as of this encounter Care Teams Associate Professor Of Communication Relationship Specialty Start Date End Date Renny Hansen MD [address] [facility] 110 [place] [address] PCP - General Internal Medicine 09/19/24 Renny Hansen MD [address] [facility] [address] [place] [address] PCP - Medical [place] MA 09/12/2409/11 Jazmín Calvillo NP Nurse Practitioner Family Medicine 05/17/24 09/18/24 Cindi Jenkins LSW [facility] 11/06/24 12/05/24 Lisa Ramirez LPN 12/05/24 documented as of this encounter
--- OUTSIDE RECORDS SUMMARY | 2025-02-21 14:54 | XMS_ITS | Encounter Summary ---
Author Organization [facility] Address [address] [facility] [place] [address] Care Team Providers Care State Director Name Role Phone Renny Hansen MD Primary Care Provider [phone] Renny Hansen MD Unavailable [phone] Lisa Ramirez LPN Unavailable Unavailable Encounter Details Date Type Department Care Team (Late st Contact Info) Description 01/04/2025 Abstract [facility] [address] [facility] 110 [place] [address] Renny Hansen MD 112 [facility] 110 [place] [address] Social History Tobacco Use Types Packs/Day Years [...] How often do you attend chur or cheondoism services? Patient declined 11/12/2024 Do you belong to any clubs o r organizations such as yarsani groups, unions, fraternal or athletic groups, or [...] Recorded Patient Health Questionnaire-2 Score 0 10/17/2024 [facility] of Occupat ional Health - Occupational [...] place to sleep or slept in a penitentiary (including now)? Patient refused 08/30/2023 Housing Stability [...] any time in the past 12 m [facility], were you homeless or living in a penitentiary (including now)? No 11/12/2024 Comments Unknown Sex [...] Office Visit [facility] [address] [facility] 110 [place] [address] Renny Hansen MD 112 [facility] 110 [place] [address] documented as of this encounter Visit Diagnoses Not on filedocumented in this encounter Additional Health Concerns Assessment Noted Time PHQ-9 Depression Total Score: 1 09/06/20 23 2:00 PM EST documented as of this encounter Care Teams State Director Relationship Specialty Start Date End Date Renny Hansen MD 112 [facility] 110 [place] [address] PCP - General Internal Medicine 09/19/24 Renny Hansen MD 112 [facility] 110 [place] [address] PCP - Medical [place] MA 09/12/2409/11 Lisa Ramirez LPN 12/05/24 documented as of this encounter
--- OUTSIDE RECORDS SUMMARY | 2025-02-21 14:54 | XMS_ITS | Encounter Summary ---
Author Organization [facility] Address [address] [place] [address] Care Team Providers Care Art Director Name Role Phone Renny Hansen MD Primary Care Provider [phone] Renny Hansen MD Unavailable [phone] Lisa Ramirez LPN Unavailable Unavailable Encounter Details Date Type Department Care Team (Late st Contact Info) Description 01/03/2025 External Result Encounter [facility] External Department Unsolicited Juan Monahan, DO [address] [place] [address] Social History Tobacco Use Types Packs/Day Years [...] How often do you attend chur or zoroastrian services? Patient declined 11/12/2024 Do you belong to any clubs o r organizations such as christianity groups, unions, fraternal [...] Recorded Patient Health Questionnaire-2 Score 0 10/17/2024 [facility] of Occupat ional [...] 05/16/2025 11:00 AM EDT Office Visit [facility] [address] [facility] 110 [place] [address] Renny Hansen MD [address] [facility] 110 [place] [address] documented as of this encounter Procedures Procedure [...] Dimitrios Blanco M.D.01/03/2025 3:42 PM Dictation Location: [facility] Tech: Ghazal Wilson Transcribed By: STAR 01/03/25 1542 Dictated By: Dimitrios Blanco MD 01/03/25 1532 Signed By: <Electronically signed by Dimitrios Blanco MD in OV> 01/03/25 1542 Narrative 01/03/2025 3:44 PM EDT [facility] [place] [address] Ultrasound Report Signed Patient: Breann Starks MR#: [id number] : 1945 Acct:[id number] Age/Sex: 79 / F ADM Date: 01/03/25 Loc: Room: Type: [facility] RCR Attending Dr: Katharina Toledo APRN [...] axilla Procedure Note Radiology, Radiologist, - 01/03/2025 [facility] Main [place] [address] [place] [address] Ultrasound Report Signed Patient: Breann Starks TMR#: [id number] : 8Acct:[id number] Age/Sex: 79 / FADM Date: 01/03/25 Loc: [facility] Dr: Katharina Toledo APRN Ordering [...] Dimitrios Blanco M.D.01/03/2025 3:42 PM Dictation Location: [facility] Tech: Ghazal Wilson Transcribed By: STAR [...] documented as of this encounter Care Teams Art Director Relationship Specialty Start Date End Date Renny Hansen MD [address] [facility] 110 [place] [address] PCP - General Internal Medicine 09/19/24 Renny Hansen MD [address] [facility] 110 [place] [address] PCP - Medical [place] MA 09/12/2409/11 Lisa Ramirez LPN 12/05/24 documented as of this encounter
--- OUTSIDE RECORDS SUMMARY | 2025-02-21 14:54 | XMS_ITS | Clinical Summary ---
Author Organization [facility] Address [address] [facility] [place] [address] Phone Care Team Providers Care Public Housing Interviewer Name Role Phone Unavailable Primary Care Provider [...]
--- OUTSIDE RECORDS SUMMARY | 2025-02-21 14:54 | XMS_ITS | Encounter Summary ---
Author Organization [facility] Address [address] [facility] [address] [place] [address] Care Team Providers Care Assistant Track And Field Coach Name Role Phone Shaikh BEREKET Denis Primary Care Provider [phone] Jazmín Calvillo HAND BRIM IRONER Unavailable [phone] Renny Hansen MD Primary Care Provider [phone] Renny Hansen MD Unavailable [phone] Cindi Jenkins SENIOR WATER/WASTEWATER ENGINEER Unavailable [phone] Lisa Ramierz LPN Unavailable Unavailable Encounter Details Date Type [...] week 08/30/2023 How often do you attend restorationism or yarsani serv ices? Patient declined 08/30/2023 Do you belong to any clubs o r organizations such as restorationism groups, unions, fraternal [...] Recorded Patient Health Questionnaire-2 Score 0 11/07/2023 [facility] - Occupational Stress Questionnaire [...] 05/16/2025 11:00 AM EDT Office Visit [facility] 112 [facility] 110 [place] [address] Renny Hansen MD 112 [facility] 110 [place] [address] documented as of this encounter Procedures Procedure Name Priority Date/Time Associated Diagnosis Comments XR DEXA AXIAL SKELETON 12/12/2023 1:46 PM EDT documented in this encounter Results * XR DEXA AXIAL SKELETON (12/12/2023 1:46 PM EDT) Anatomical Region Laterality Modality Other 12/12/2023 1:46 PM EDT Narrative 12/12/2023 1:48 PM EDT The [address] [address] XRay Report Signed Patient: MAXIMUS STARKS MR#: [id number] : 1945 Acct:[id number] Age/Sex: 78 / F ADM Date: 12/12/23 Loc: RAD Attending Dr: Renée Barry NP Ordering Physician: Renée Barry NP Date of Service: 12/12/23 Procedure(s): XR DEXA axial skeleton Accession Number(s): [id number] cc: Shaikh Magui Denis; Renée Barry NP The [place] [address] Patient Name: MAXIMUS STARKS MRN: [id number] date: 1945 Sex: F Assigned Patient Location: RAD Current Patient Location: RAD Accession/Order Number: [id number] Exam Date: 12/12/2023 12:57 Report Date: 12/12/2023 [...] Signed By: 12/12/23 1348 DD/ 1346 TD/TT: Patent Drafter: Procedure Note Radiology, Radiologist, MD - 12/15/2023 [place] [address] XRay Report Signed Patient: MAXIMUS STARKS TMR#: [id number] : 8Acct:[id number] Age/Sex: 78 / FADM Date: 12/12/23 Loc: RAD Attending Dr: Renée Barry HAND BRIM IRONER Ordering Physician: Renée Barry NP Date of Service: 12/12/23 Procedure(s): XR DEXA axial skeleton Accession Number(s): [id number] cc: Shaikh Magui Denis; Renée Barry NP [address] [address] Patient Name: MAXIMUS STARKS MRN: [id number] date: 1945 Sex: F Assigned Patient Location: RAD Current Patient Location: RAD Accession/Order Number: [id number] Exam Date: 12/12/2023 12:57 Report Date: 12/12/2023 [...] M.D. Signed By:12/12/23 1348 DD/ 1346 TD/TT: Patent Drafter: us Generic External Data Provider [facility] Final Result documented in this encounter Visit Diagnoses Not on filedocumented in this encounter Additional Health Concerns Assessment Noted Time PHQ-9 Depression Total Score: 1 09/06/20 23 2:00 PM EST documented as of this encounter Care Teams Assistant Track And Field Coach Relationship Specialty Start Date End Date Shaikh Denis MD [address] [place] [address] PCP - General Internal Medicine 10/17/23 05/16/24 Renny Hansen MD [address] [facility] 110 [place] [address] PCP - General Internal Medicine 09/19/24 Renny Hansen MD [address] [facility] 110 [place] [address] PCP - Medical [facility] 09/12/2409/11 Jazmín Calvillo NP [address] [facility] [place] [address] Nurse Practitioner Family Medicine 05/17/24 09/18/24 Cindi Jenkins LSW Hardboard Panel Printer Family Medicine 11/06/24 12/05/24 Lisa Ramirez LPN 12/05/24 documented as of this encounter
--- OUTSIDE RECORDS SUMMARY | 2025-02-21 14:54 | XMS_ITS | Encounter Summary ---
Author Organization [facility] Address [address] [place] [address] Care Team Providers Care Afterschool Babysitter Name Role Phone Shaikh BEREKET Denis Primary Care Provider [phone] Jazmín Calvillo HAY RAKE OPERATOR Unavailable [phone] Renny Hansen MD Primary Care Provider [phone] Renny Hansen MD Unavailable [phone] Cindi Jenkins PLUGGER Unavailable [phone] Lisa Ramirez LPN Unavailable Unavailable Encounter Details Date Type Department Care Team (Late st Contact Info) Description 11/10/2023 Orders Only [facility] [address] [place] [address] Shaikh Denis MD [address] [place] [address] Social History Tobacco Use Types Packs/Day Years [...] week 08/30/2023 How often do you attend uatsdin or muslim serv ices? Patient declined 08/30/2023 Do you belong to any clubs o r organizations such as uatsdin groups, unions, fraternal or athletic groups, or [...] Recorded Patient Health Questionnaire-2 Score 0 11/07/2023 [facility] of Occupat ional Health [...] EDT Office Visit [facility] 112 [facility] 110 [place] [address] Renny Hansen MD 112 [facility] 110 [place] [address] documented as of this encounter Visit Diagnoses Not on filedocumented in this encounter Additional Health Concerns Assessment Noted Time PHQ-9 Depression Total Score: 1 09/06/20 23 2:00 PM EST documented as of this encounter Care Teams Afterschool Babysitter Relationship Specialty Start Date End Date Shaikh Denis MD [address] [place] [address] PCP - General Internal Medicine 10/17/23 05/16/24 Renny Hansen MD [address] [facility] 110 [place] [address] PCP - General Internal Medicine 09/19/24 Renny Hansen MD [address] [facility] 110 [place] [address] PCP - Medical [facility] 09/12/2409/11 Jazmín Calvillo NP [address] [facility] [place] [address] Nurse Practitioner Family Medicine 05/17/24 09/18/24 Cindi Jenkins LSW Turret Punch Press Operator Family Medicine 11/06/24 12/05/24 Lisa Ramirez LPN 12/05/24 documented as of this encounter
--- OUTSIDE RECORDS SUMMARY | 2025-02-21 14:54 | XMS_ITS | Encounter Summary ---
Author Organization [facility] Address [address] [facility] [place] [address] Care Team Providers Care Fuel Injection Servicer Name Role Phone Shaikh BEREKET Denis Primary Care Provider [phone] Jazmín Calvillo SUPPLIER ENGINEER Unavailable [phone] Renny Hansen MD Primary Care Provider [phone] Renny Hansen MD Unavailable [phone] Cindi Jenkins RUBBER COMPOUNDER FORMULATOR Unavailable [phone] Lisa Ramirez MATERIALS AND PROCESSES MANAGER Unavailable Unavailable Encounter Details Date Type Department Care Team (Late st Contact Info) Description 12/12/2023 Orders Only [facility] [address] [place] [address] Kayley Reeder MD [address] [address] [place] [address] Social History Tobacco Use Types [...] week 08/30/2023 How often do you attend gnosticism or zoroastrianism serv ices? Patient declined 08/30/2023 Do you belong to any clubs o r organizations such as gnosticism groups, unions, fraternal [...] Recorded Patient Health Questionnaire-2 Score 0 11/07/2023 [facility] of Occupat ional Health - Occupational Stress [...] 05/16/2025 11:00 AM EDT Office Visit [facility] 112 [facility] 110 [place] [address] Renny Hansen MD 112 [facility] 110 [place] [address] documented as of this encounter Procedures Procedure [...] documented as of this encounter Care Teams Fuel Injection Servicer Relationship Specialty Start Date End Date Shaikh Denis MD [address] [place] [address] PCP - General Internal Medicine 10/17/23 05/16/24 Renny Hansen MD [address] [facility] 110 [place] [address] PCP - General Internal Medicine 09/19/24 Renny Hansen MD [address] [facility] 110 [place] [address] PCP - Medical [facility] 09/12/2409/11 Jazmín Calvillo NP [address] [place] [address] Nurse Practitioner Family Medicine 05/17/24 09/18/24 Cindi Jenkins LSW Bleach Boiler Filler Family Medicine 11/06/24 12/05/24 Lisa Ramirez LPN 12/05/24 documented as of this encounter
--- OUTSIDE RECORDS SUMMARY | 2025-02-21 14:54 | XMS_ITS | Encounter Summary ---
Author Organization [facility] Address [address] [place] [address] Care Team Providers Care Natural Gas Inspector Name Role Phone Shaikh BEREKET Denis Primary Care Provider [phone] Shaikh BEREKET Denis Primary Care Provider [phone] Jazmín Calvillo SYSTEM DESIGNER Unavailable [phone] Renny Hansen MD Primary Care Provider [phone] Renny Hansen MD Unavailable [phone] Cindi Jenkins NEUROPSYCHOLOGY MEDICAL CONSULTANT Unavailable [phone] Lisa Ramirez LPN Unavailable Unavailable Reason for Visit * Reason Comments Med Refill Encounter Details Date Type Department Care Team (Late st Contact Info) Description 10/13/2023 Refill [facility] [address] [place] [address] Shaikh Denis MD [address] [place] [address] Peptic ulcer, site unspecified, unspecified [...] week 08/30/2023 How often do you attend mu-ism or voodoo serv ices? Patient declined 08/30/2023 Do you belong to any clubs o r organizations such as mu-ism groups, unions, fraternal [...] Recorded Patient Health Questionnaire-2 Score 0 09/06/2023 [facility] of Occupat ional Health - Occupational Stress [...] a penitentiary (including now)? Patient refused 08/30/2023 Comments Unknown [...] Visit [facility] 112 [facility] 110 [place] [address] Renny Hansen MD [address] [facility] [address] [place] [address] documented as of this encounter Visit Diagnoses [...] as of this encounter Care Teams Natural Gas Inspector Relationship Specialty Start Date End Date Shaikh Denis MD PCP - General Internal Medicine 04/05/23 10/16/23 Shaikh Denis MD [address] [place] [address] PCP - General Internal Medicine 10/17/23 05/16/24 Renny Hansen MD [address] [place] [address] PCP - General Internal Medicine 09/19/24 Renny Hansen MD [address] [facility] 110 [place] [address] PCP - Medical [facility] 09/12/2409/11 Jazmín Calvillo NP [address] [place] [address] Nurse Practitioner Family Medicine 05/17/24 09/18/24 Cindi Jenkins LSW Turn Out Family Medicine 11/06/24 12/05/24 Lisa Ramirez LPN 12/05/24 documented as of this encounter
--- OUTSIDE RECORDS SUMMARY | 2025-02-21 14:55 | XMS_ITS | Encounter Summary ---
Author Organization [facility] Address [address] [place] [address] Care Team Providers Care Heavy Equipment Engine Mechanic Name Role Phone Jazmín Calvillo STONE SPLITTER Unavailable [phone] Renny Hansen MD Primary Care Provider [phone] Renny Hansen MD Unavailable [phone] Cindi Jenkins COLOR CARD MAKER Unavailable Lisa Ramirez GENERAL STUDIES PROGRAM CHAIR Unavailable Unavailable Encounter Details Date Type Department Care Team (Late st Contact Info) Description 07/24/2024 Abstract [facility] [address] [place] [address] Wesley Long MD [address] [place] [address] Social History Tobacco Use Types Packs/Day Years [...] How often do you attend gnosticism or scientologist serv ices? Patient declined 08/30/2023 [...] EDT Office Visit [facility] [address] [facility] 110 [place] [address] Renny Hansen MD [address] [facility] 110 [place] [address] documented as of this encounter Visit Diagnoses Not on filedocumented in this encounter Additional Health Concerns Assessment Noted Time PHQ-9 Depression Total Score: 1 09/06/20 23 2:00 PM EST documented as of this encounter Care Teams Heavy Equipment Engine Mechanic Relationship Specialty Start Date End Date Renny Hansen MD [address] [facility] 110 [place] [address] PCP - General Internal Medicine 09/19/24 Renny Hansen MD [address] [address] PCP - Medical [place] 09/12/2409/11 Jazmín Calvillo NP Nurse Practitioner Family Medicine 05/17/24 09/18/24 Cindi Jenkins LSW Thermal Engineer Family Medicine 11/06/24 12/05/24 Lisa Ramirez LPN 12/05/24 documented as of this encounter
--- OUTSIDE RECORDS SUMMARY | 2025-02-21 14:55 | XMS_ITS | Encounter Summary ---
Author Organization [facility] Address [address] [place] [address] Care Team Providers Care Engagement Quality Consultant Name Role Phone Renny Hansen MD Primary Care Provider [phone] Balta Cardenas MD Unavailable [phone] Encounter Details Date Type Department Care Team (Late st Contact Info) Description 01/07/2025 Telephone [facility] Infectious Disease [address] [place] [address] Rosemarie Mistry MA Social History [...] Info) Description 05/15/2025 11:00 AM EDT Follow-Up [facility] Infectious Disease [address] [place] [address] Ortega Hines MD [address] [facility] [address] documented as of this encounter Visit Diagnoses Not on filedocumented in this encounter Care Teams Engagement Quality Consultant Relationship Specialty Start Date End Date Renny Hansen MD 112 [facility] 110 [place] [address] PCP - General Internal Medicine 07/18/24 Balta Cardenas MD [address] [place] [address] Referring Physician 11/15/24 documented as of this encounter
--- OUTSIDE RECORDS SUMMARY | 2025-02-21 14:55 | XMS_ITS | Encounter Summary ---
Author Organization [facility] Address [address] [place] [address] Care Team Providers Care Scientific Investigator Name Role Phone Jazmín Calvillo MODEL AND MOLD MAKER Unavailable [phone] Renny Hansen MD Primary Care Provider [phone] Renny Hansen MD Unavailable [phone] Cindi Jenkins EVP AND CHIEF OPERATING OFFICER Unavailable [phone] Lisa Ramirez LUG BREAKER AND WIRE PULLER Unavailable Unavailable Encounter Details Date Type Department Care Team (Late st Contact Info) Description 08/08/2024 Clinisync Result Encounter [facility] External Department Unsolicited Renny Hansen MD 112 [facility] 110 [place] [address] Social History Tobacco Use Types Packs/Day Years [...] How often do you attend congregational or gnosticism serv ices? Patient declined 08/30/2023 Do you belong to any clubs o r organizations such as congregational groups, unions, fraDatahero or athletic groups, or school groups? Yes [...] Recorded Patient Health Questionnaire-2 Score 0 05/31/2024 [facility] - Occupational Stress Questionnaire Answer [...] AM EDT Office Visit [facility] 112 [facility] 110 [place] [address] Renny Hansen MD 112 [facility] 110 [place] [address] documented as of this encounter Procedures Procedure Name Priority Date/Time Associated Diagnosis Comments XR CINERADIOGRAPHY 08/08/2024 6: 31 AM EST documented in this encounter Results * XR CINERADIOGRAPHY (08/08/2024 6:31 AM EST) Anatomical Region Laterality Modality Other 08/08/2024 6:31 AM EST Narrative 08/08/2024 6:33 AM EST The [address] [address] Fluoroscopy Report Signed Patient: BREANN HERRMANN MR#: [id number] : 1945 Acct:[id number] Age/Sex: 78 / F ADM Date: 08/07/24 Loc: [place] Attending Dr: RENNY HANSEN Ordering Physician: RENNY HANSEN Date of Service: 08/07/24 Procedure(s): FL cineradiography Accession Number(s): [id number] cc: RENNY HANSEN [address] [place] [address] Patient Name: BREANN HERRMANN MRN: [facility]:[id number] date: 1945 Sex: F Assigned Patient Location: [place] Current Patient Location: Accession/Order Number: [id number] Exam Date: 08/07/2024 08:45 Report Date: 08/08/2024 [...] M.D. Signed By: 08/08/24632 DD/ 0 TD/TT: School Psychologist Assistant: Procedure Note Radiology, Radiologist, MD - 08/08/2024 [place] [address] Fluoroscopy Report Signed Patient: BREANN HERRMANN TMR#: [id number] : 8Acct:[id number] Age/Sex: 78 / FADM Date: 08/07/24 Loc: [place] Attending Dr: RENNY HANSEN Ordering Physician: RENNY HANSEN Date of Service: 08/07/24 Procedure(s): FL cineradiography Accession Number(s): [id number] cc: RENNY HANSEN [place] [id number] Patient Name: BREANN HERRMANN MRN: [id number] date: 1945 Sex: F Assigned Patient Location: [place] Current Patient Location: Accession/Order Number: [id number] Exam Date: 08/07/2024 08:45 Report Date: 08/08/2024 [...] Moderate gastroesophageal reflux. Electronically authenticated by: WIL EDLGADO Date: 08/08/2024 06:31 Dictated By: Wil Delgado M.D. Signed By:08/08/24632 DD/ 0 TD/TT: School Psychologist Assistant: Renny Hansen MD [facility] Final Result documented in this encounter Visit Diagnoses Not on filedocumented in this encounter Additional Health Concerns Assessment Noted Time PHQ-9 Depression Total Score: 1 09/06/20 23 2:00 PM EST documented as of this encounter Care Teams Scientific Investigator Relationship Specialty Start Date End Date Renny Hansen MD [address] [facility] 110 [place] [address] PCP - General Internal Medicine 09/19/24 Renny Hansen MD [address] [facility] 110 [place] [address] PCP - Medical [place] [facility] 09/12/2409/11 Jazmín Calvillo NP Nurse Practitioner Family Medicine 05/17/24 09/18/24 Cindi Jenkins LSW Faculty Physician Family Medicine 11/06/24 12/05/24 Lisa Ramirez LPN 12/05/24 documented as of this encounter
--- OUTSIDE RECORDS SUMMARY | 2025-02-21 14:55 | XMS_ITS | Encounter Summary ---
Author Organization [facility] Address [address] [place] [address] Care Team Providers Care Furnace Mechanic Name Role Phone Jazmín Calvillo SUPERVISOR CIGARETTE MAKING DEPARTMENT Unavailable [phone] Renny Hansen MD Primary Care Provider [phone] Renny Hansen MD Unavailable [phone] Cindi Jenkins IT DISASTER RECOVERY MANAGER Unavailable [phone] Lisa Ramirez FRUIT SPRAYER Unavailable Unavailable Encounter Details Date Type Department Care Team (Late st Contact Info) Description 07/05/2024 [facility] [address] [place] [address] Wesley Long MD [address] [place] [address] Social History Tobacco Use Types Packs/Day Years [...] How often do you attend sikh or religion serv ices? Patient declined 08/30/2023 [...] Recorded Patient Health Questionnaire-2 Score 0 05/31/2024 [facility] of Occupat ional Health - Occupational [...] EDT Office Visit [facility] [address] [facility] 110 [place] [address] eRnny Hansen MD [address] [facility] 110 [place] [address] documented as of this encounter Visit Diagnoses Not on filedocumented in this encounter Additional Health Concerns Assessment Noted Time PHQ-9 Depression Total Score: 1 09/06/20 23 2:00 PM EST documented as of this encounter Care Teams Furnace Mechanic Relationship Specialty Start Date End Date Renny Hansen MD [address] [facility] 110 [place] [address] PCP - General Internal Medicine 09/19/24 Renny Hansen MD [address] [address] PCP - Medical [place] 09/12/2409/11 Jazmín Calvillo NP Nurse Practitioner Family Medicine 05/17/24 09/18/24 Cindi Jenkins LSW Door Patcher Family Medicine 11/06/24 12/05/24 Lisa Ramirez LPN 12/05/24 documented as of this encounter
--- OUTSIDE RECORDS SUMMARY | 2025-02-21 14:55 | XMS_ITS | Encounter Summary ---
Author Organization [facility] Address [address] [facility] [place] [address] Care Team Providers Care Printing Equipment Mechanic Apprentice Name Role Phone Jazmín Calvillo BOX TOE BUFFER Unavailable [phone] Renny Hansen MD Primary Care Provider [phone] Renny Hansen MD Unavailable [phone] Cindi Jenkins FACILITY ADMINISTRATOR Unavailable [phone] Lisa Ramirez MANAGER AGENCY Unavailable Unavailable Encounter Details Date Type Department Care Team (Late st Contact Info) Description 07/09/2024 Abstract [facility] [address] [facility] 110 [place] [address] Unallocated, Noms Provider, [address] [place], [place] [address] Social History Tobacco Use Types Packs/Day Years [...] How often do you attend temple or jehovah's witness serv ices? Patient declined 08/30/2023 Do you belong to any clubs o r organizations such as temple groups, unions, fraNewsBreak or athletic groups, or school groups? Yes [...] Recorded Patient Health Questionnaire-2 Score 0 05/31/2024 [facility] of Occupat ional [facility] - Occupational Stress Questionnaire Answer [...] Visit [facility] [address] [facility] 110 [place] [address] Renny Hansen MD [address] [facility] 110 [place] [address] documented as of this encounter Visit Diagnoses Not on filedocumented in this encounter Additional Health Concerns Assessment Noted Time PHQ-9 Depression Total Score: 1 09/06/20 23 2:00 PM EST documented as of this encounter Care Teams Printing Equipment Mechanic Apprentice Relationship Specialty Start Date End Date Renny Hansen MD [address] [facility] 110 [place] [address] PCP - General Internal Medicine 09/19/24 Renny Hansen MD [address] [facility] 110 [place] [address] PCP - Medical [place] 09/12/2409/11 Jazmín Calvillo NP Nurse Practitioner Family Medicine 05/17/24 09/18/24 Cindi Jenkins LSW Installer Technician Family Medicine 11/06/24 12/05/24 Lisa Ramirez LPN 12/05/24 documented as of this encounter
--- OUTSIDE RECORDS SUMMARY | 2025-02-21 14:55 | XMS_ITS | Encounter Summary ---
Author Organization [facility] Address [address] [place] [address] Care Team Providers Care Floatman Name Role Phone Jazmín Calvillo CRAFT WORKER Unavailable [phone] Renny Hansen MD Primary Care Provider [phone] Renny Hansen MD Unavailable [phone] Cindi Jenkins PHOTOENGRAVING ETCHER Unavailable Lisa Ramirez FOOD MANAGER Unavailable Unavailable Encounter Details Date Type Department Care Team (Late st Contact Info) Description 07/25/2024 [facility] [address] [place] [address] Wesley Long MD [address] [place] [address] Social History Tobacco Use Types Packs/Day Years [...] week 08/30/2023 How often do you attend jew or voodoo serv ices? Patient declined 08/30/2023 Do you belong to any clubs o r organizations such as jew groups, unions, fraternal or athletic groups, or [...] 0 05/31/2024 [facility] of Occupat ional Health - Occupational [...] EDT Office Visit [facility] [address] [facility] 110 [place] [address] Renny Hansen MD [address] [facility] 110 [place] [address] documented as of this encounter Visit Diagnoses Not on filedocumented in this encounter Additional Health Concerns Assessment Noted Time PHQ-9 Depression Total Score: 1 09/06/20 23 2:00 PM EST documented as of this encounter Care Teams Floatman Relationship Specialty Start Date End Date Renny Hansen MD [address] [facility] 110 [place] [address] PCP - General Internal Medicine 09/19/24 Renny Hansen MD [address] [address] PCP - Medical [place] 09/12/2409/11 Jazmín Calvillo NP Nurse Practitioner Family Medicine 05/17/24 09/18/24 Cindi Jenkins LSW Pipe Stress Engineer Family Medicine 11/06/24 12/05/24 Lisa Ramirez LPN 12/05/24 documented as of this encounter
--- OUTSIDE RECORDS SUMMARY | 2025-02-21 14:55 | XMS_ITS | Encounter Summary ---
Author Organization [facility] Address [address] [place] [address] Care Team Providers Care Golf Technician Name Role Phone Renny Hansen MD Primary Care Provider [phone] Renny Hansen MD Unavailable [phone] Cindi Jenkins PRIME MINISTER Unavailable [phone] Lisa Ramirez LPN Unavailable Unavailable Encounter Details Date Type Department Care Team (Late st Contact Info) Description 10/02/2024 External Result Encounter NOM[facility] External Department Unsolicited Katharina Toledo, COFFEE FARMER [address] [place] [address] Social History Tobacco Use Types Packs/Day Years [...] How often do you attend uatsdin or anglican serv ices? Patient declined 08/30/2023 [...] Recorded Patient Health Questionnaire-2 Score 0 05/31/2024 [facility] of Occupat [...] 05/16/2025 11:00 AM EDT Office Visit [facility] 112 [facility] 110 [place] [address] Renny Hansen MD 112 [facility] 110 [place] [address] documented as of this encounter Procedures Procedure [...] 10/02/24 1614 Narrative 10/02/2024 4:17 PM EST [facility] [place] [address] [place] [address] CT Scan Report Signed Patient: Breann Starks MR#: [id number] : 1945 Acct:[id number] Age/Sex: 78 / F ADM Date: 10/02/24 Loc: XT Room: Type: REG RCR Attending Dr: Katharina Toledo TIG WELDER Copies to: Katharina Toledo APRN Ordering Provider: [...] Procedure Note Radiology, Radiologist, MD - 10/02/2024 [facility] [place] [address] [place], [place] [address] CT Scan Report Signed Patient: Breann Starks TMR#: [id number] : 8Acct:[id number] Age/Sex: 78 / FADM Date: 10/02/24 Loc: XT Room:Type: REG RCR Attending Dr: Katharina Toledo TIG WELDER Copies to: Katharina Toledo APRN Ordering Provider: [...] Etienne Rhodes M.D.10/02/2024 4:14 PM Dictation Location: [place] [address] Transcribed By: [facility] 10/02/24 1614 Dictated By: Etienne Rhodes DO 10/02/24 1610 Signed By: <Electronically signed by Etienne Rhodes DO in OV> 10/02/24 1614 us Katharina Toledo COFFEE FARMER IMG CT PROCEDURES Final Resul t documented in this encounter Visit Diagnoses Not on filedocumented in this encounter Additional Health Concerns Assessment Noted Time PHQ-9 Depression Total Score: 1 09/06/20 23 2:00 PM EST documented as of this encounter Care Teams Golf Technician Relationship Specialty Start Date End Date Renny Hansen MD [address] [facility] 110 [place] [address] PCP - General Internal Medicine 09/19/24 Renny Hansen MD [address] [facility] 110 [place] [address] PCP - Medical [facility] 09/12/2409/11 Cindi Jenkins LSW Ram Press Operator Family Medicine 11/06/24 12/05/24 Lisa Ramirez LPN 12/05/24 documented as of this encounter
--- OUTSIDE RECORDS SUMMARY | 2025-02-21 14:55 | XMS_ITS | Referral Summary ---
Author Organization [facility] Address [address] [place] [address] Care Team Providers Care Open Hearth Worker Name Role Phone Renny Hansen MD Primary Care Provider [phone] Balta Cardenas MD Unavailable [phone] Encounters Date Type Department Care Team Description 02/20/2025 11:00 AM EDT Follow-Up [facility] Infectious Disease [address] [place] [phone] Ortega Hines MD Pain in joint of left shoulder 02/08/2025 Refill [place] [address] [place] [address] Tina Xie MA Essential hypertension 01/22/2025 3:00 PM EDT Ancillary Procedure [place] [address] [place] [address] Encounter for implantable defibrillator reprogramming or check 01/18/2025 Telephone [facility] Infectious Disease [address] [place] [phone] Ortega Hines MD 01/17/2025 Orders Only [facility] Dermatology [address] [place] [address] Purnima Quintero MA Pain in joint of left shoulder 01/17/2025 10:00 AM EDT Office Visit 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, unspecified complication, subsequent encounter (Primary Dx); Pain in joint of left shoulder 12/28/2024 Telephone [facility] [address] [place] [facility] [place] [address] Roopa Mensah MA 12/28/2024 Refill [facility] [address] [place] [facility] [place] [address] Roopa Mensah MA Chronic diastolic heart failure (CMS/HCC) 12/28/2024 Refill [facility] [address] [place] [facility] [place] [address] Roopa Mensah MA Paroxysmal atrial fibrillation (CMS/HCC) 12/24/2024 1:40 PM EDT Office Visit [facility] [address] [place] [facility] [place] [address] Kellie Alva MD Paroxysmal A-fib (CMS/HCC) (Primary Dx); Sinus node dysfunction (CMS/HCC); Cardiac pacemaker in situ; Atherosclerosis of [place] coronary artery of [place] heart without angina pectoris; Pulmonary hypertension (CMS/HCC); Venous insufficiency; Chronic diastolic congestive heart failure (CMS/HCC); Pure hypercholesterolemia 12/04/2024 Refill [facility] Cardiology [address] [place] [address] Ingrid Cannon CNP Paroxysmal atrial fibrillation (CMS/HCC) 11/27/2024 1:30 PM EDT [facility] [address] [place] [address] [place] [phone] Pain in joint of left shoulder 11/27/2024 1:00 PM EDT Follow-Up [facility] [address] [place] [address] [place] [address] Jan Albert MD Pain in joint of [...] get device check to assess AF burden -[id number] 3 -Continue Xarelto 20 mg daily, continue propafenone to 25 mg 3 times a day Sinus node dysfunction 10/07/2020 Assessment & Plan (11/18/2022 10:55 AM EST): - S/p PPM [place] scientific -We will have her scheduled for [...] Chronic obstructive lung disease 01/12/2012 Atherosclerosis of [place] co ronary artery of [place] heart without angina pectoris 01/12/2012 Assessment & [...] Info) Description 05/15/2025 11:00 AM EDT Follow-Up [facility] Infectious Disease [address] [place] [address] Ortega Hines MD [address] [facility]/[place] [address] Procedures Procedure Name Priority Date/Time [...] Dmitriy Mahan MD CV IMPLANTABLE CARDIAC DEVICE DE OCEDURES Final Result * (ABNORMAL) CBC auto differential (01/17/2025 11:19 AM EDT) Only the most recent of2 resultswithin the time period is included. Auto WBC 7.39 4.00 - 10.60 10*3/uL 01/17/2025 5:59 PM EDT [facility] ([facility]) RBC 3.91 3.80 - 5.00 10*6/uL 01/17/2025 5:59 PM EDT [facility] ([facility]) Hemoglobin 9.8(L) 12.0 - 15.0 g/dL 01/17/2025 5:59 PM EDT [facility] ([facility]) Hematocrit 33.1(L) 36.0 - 45.0 % 01/17/2025 5:59 PM EDT [facility] ([facility]) MCV 84.7 82.0 - 98.0 fL 01/17/2025 5:59 PM EDT [facility] ([facility]) MCH 25.1(L) 27.0 - 33.0 pg 01/17/2025 5:59 PM EDT [facility] ([facility]) MCHC 29.6(L) 32.0 - 35.0 g/dL 01/17/2025 5:59 PM EDT [facility] ([facility]) RDW 18.4(H) 11.5 - 15.0 % 01/17/2025 5:59 PM EDT [facility] ([facility]) Neutrophils % 71.9 40.0 - 72.0 % 01/17/2025 5:59 PM EDT [facility] ([facility]) Lymphocytes % 17.9(L) 20.0 - 45.0 % 01/17/2025 5:59 PM EDT [facility] ([facility]) Monocytes % 6.8 5.0 - 12.0 % 01/17/2025 5:59 PM EDT [facility] ([facility]) Eosinophils % 2.2 0.0 - 6.0 % 01/17/2025 5:59 PM EDT [facility] ([facility]) Basophils % 0.9 0.0 - 1.0 % 01/17/2025 5:59 PM EDT [facility] ([facility]) Neutrophils Absolute 5.32 1.60 - 7.60 10*3/uL 01/17/2025 5:59 PM EDT [facility] ([facility]) Lymphocytes Absolute 1.32 1.20 - 4.00 10*3/uL 01/17/2025 5:59 PM EDT [facility] ([facility]) Monocytes Absolute 0.50 0.10 - 1.00 10*3/uL 01/17/2025 5:59 PM EDT [facility] ([facility]) Eosinophils Absolute 0.16 0.00 - 0.50 10*3/uL 01/17/2025 5:59 PM EDT [facility] ([facility]) Basophils Absolute 0.07 0.00 - 0.20 10*3/uL 01/17/2025 5:59 PM EDT [facility] ([facility]) Platelets 338 150 - 400 10*3/uL 01/17/2025 5:59 PM EDT [facility] ([facility]) nRBC % 0.0 0 % 01/17/2025 5:59 PM EDT [facility] ([facility]) Immature Granulocytes % 0.3 0.0 - 1.0 % 01/17/2025 5:59 PM EDT [facility] ([facility]) Immature Granulocytes Absolute 0.02 0.00 - 0.20 10*3/uL 01/17/2025 5:59 PM EDT [facility] ([facility]) Blood Venous blood specimen / Unknown Venipuncture / Unknown 01/17/2025 11:19 AM EDT 01/17/2025 11:19 AM EDT us Ortega Hines MD LAB BLOOD ORDERABLES Final Resu lt [facility]) [address] [place] [address] * (ABNORMAL) C-reactive protein (01/17/2025 11:19 AM EDT) Only the most recent of2 resultswithin the time period is included. CRP 6.8(H) <=5.0 mg/L 01/18/2025 3:12 PM EDT [facility] ([facility]) Comment:Testing performed us ing a new methodology, turbidimetry. Normal ranges have been updated. Old normal range was <8 mg/L. Blood Venous blood specimen / Unknown Venipuncture / Unknown 01/17/2025 11:19 AM EDT 01/17/2025 11:19 AM EDT us Ortega Hines MD LAB BLOOD ORDERABLES Final Resu lt [facility] ([facility]) [address] [place] [address] * (ABNORMAL) Basic metabolic panel (01/17/2025 11:19 AM EDT) Sodium 135(L) 136 - 145 mmol/L 01/17/2025 5:04 PM EDT [facility] ([facility]) Potassium 4.1 3.5 - 5.1 mmol/L 01/17/2025 5:04 PM EDT [facility] ([facility]) Chloride 103 98 - 107 mmol/L 01/17/2025 5:04 PM EDT [facility] ([facility]) CO2 26 21 - 31 mmol/L 01/17/2025 5:04 PM EDT [facility] ([facility]) BUN 17 7 - 25 mg/dL 01/17/2025 5:04 PM EDT [facility] ([facility]) Creatinine 0.64 0.60 - 1.20 mg/dL 01/17/2025 5:04 PM EDT [facility] ([facility]) Glucose 92 70 - 100 mg/dL 01/17/2025 5:04 PM EDT [facility] ([facility]) Calcium 8.9 8.6 - 10.3 mg/dL 01/17/2025 5:04 PM EDT [facility] ([facility]) Anion Gap 10 7 - 20 mmol/L 01/17/2025 5:04 PM EDT [facility] ([facility]) eGFR 91.0 >60.0 mL/min/1. 73m*2 01/17/2025 5:04 PM EDT [facility] ([facility]) Comment:[facility] s estimated glomerular filtration rate (eGFR) [...] Ratio 26.6 05/0 04/2025 5:04 PM EDT [facility] ([facility]) Blood Venous blood specimen / Unknown Venipuncture / Unknown 01/17/2025 11:19 AM EDT 01/17/2025 11:19 AM EDT us Ortega Hines MD LAB BLOOD ORDERABLES Final Resu lt Performing Organization Address City/[facility]/ZIP Co de Phone Number [facility]) [address] [place] [address] * (ABNORMAL) Sedimentation rate (11/27/2024 1:27 PM EDT) Sed Rate 96(H) <30 mm/hr 11/27/2024 3:4 0 PM EDT [facility]) Blood Venous blood specimen / Unknown Venipuncture / Unknown 11/27/2024 1:27 PM EDT 11/27/2024 3:16 PM EDT us Jan Albert MD LAB BLOOD ORDERABLES Final Resul t Performing Organization Address City/[facility]/ZIP Co de Phone Number [facility]) [address] [place] [address] from Last 3 Months Insurance [facility] MEDICARE Care Teams Open Hearth Worker Relationship Specialty Start Date End Date Renny Hansen MD [address] [facility] [address] [place] [address] PCP - General Internal Medicine 07/18/24 Balta Cardenas MD [address] [place] [address] Referring Physician 11/15/24
--- OUTSIDE RECORDS SUMMARY | 2025-02-21 14:55 | XMS_ITS | Encounter Summary ---
Author Organization [facility] Address [address] [place] [address] Care Team Providers Care Tobacco Primer Machine Operator Name Role Phone Jazmín Calvillo NP Unavailable [phone] Renny Hansen MD Primary Care Provider [phone] Renny Hansen MD Unavailable [phone] Cindi Jenkins COSTING ANALYST Unavailable [phone] Lisa Ramirez LPN Unavailable Unavailable Encounter [...] week 08/30/2023 How often do you attend restorationist or voodoo serv ices? Patient declined 08/30/2023 Do you belong to any clubs o r organizations such as restorationist groups, unions, fraternal or athletic groups, or [...] Recorded Patient Health Questionnaire-2 Score 0 05/31/2024 [facility] Occupat ional Health - Occupational Stress [...] place to sleep or slept in a nursing home (including now)? Patient refused 08/30/2023 Comments [...] 05/16/2025 11:00 AM EDT Office Visit [facility] [address] [facility] [address] [place] [address] Renny Hansen MD 112 [facility] [address] [place] [address] documented as of this encounter Procedures Procedure Name Priority Date/Time Associated Diagnosis Comments CT CERVICAL SPINE W IV CONTRAST 06/28/2024 8:43 AM EDT documented in this encounter Results * CT cervical spine w IV contrast (06/28/2024 8:43 AM EDT) Anatomical Region Laterality Modality Spine, C-spine Computed Tomogra phy 06/28/2024 8:43 AM EDT Narrative 06/28/2024 8:45 AM EDT The [address] [address] [address] Scan Report Signed Patient: BREANN STARKS MR#: [id number] : 1945 Acct:[id number] Age/Sex: 78 / F ADM Date: 06/26/24 Loc: CT Attending Dr: VangieStaff Physician [place] Ordering Physician: Channing Devlin M.D. Date of Service: 06/26/24 Procedure(s): CT cervical spine w con Accession Number(s): [id number] cc: RENNY HANSEN [place] [address] Patient Name: BREANN STARKS MRN: [facility]:[id number] date: 1945 Sex: F Assigned Patient Location: CT Current Patient Location: Accession/Order Number: [id number] Exam Date: 06/26/2024 14:58 Report Date: 06/28/2024 [...] due to patient body habitus and poor ssdmbk-jk-qjrxp ratio BONES: Reversal of normal cervical lordosis. [...] M.D. Signed By: 06/28/24 0845 DD/ TD/TT: Barrel Lathe Operator Inside: Procedure Note Radiology, Radiologist, - 06/28/[address] [place] [id number] Scan Report Signed Patient: BREANN STARKS TMR#: [id number] : 8Acct:[id number] Age/Sex: 78 / FADM Date: 06/26/24 Loc: CT Attending Dr: Non-Staff Physician [place] Ordering Physician: Channing Devlin M.D. Date of Service: 06/26/24 Procedure(s): CT cervical spine w con Accession Number(s): [id number] cc: RENNY HANSEN [place] [address] Patient Name: BREANN STARKS MRN: [id number] date: 1945 Sex: F Assigned Patient Location: CT Current Patient Location: Accession/Order Number: [id number] Exam Date: 06/26/2024 14:58 Report Date: 06/28/2024 [...] due to patient body habitus and poor vmglye-hv-oirkm ratio BONES: Reversal of normal cervical lordosis. [...] Alston M.D. Signed By:06/28/2445 DD/ 2 TD/TT: Barrel Lathe Operator Inside: us Generic External Data Provider IMG CT PROCEDURES Final Result documented in this encounter Visit Diagnoses Not on filedocumented in this encounter Additional Health Concerns Assessment Noted Time PHQ-9 Depression Total Score: 1 09/06/20 23 2:00 PM EST documented as of this encounter Care Teams Tobacco Primer Machine Operator Relationship Specialty Start Date End Date Renny Hansen MD [address] [facility] [address] [place] [address] PCP - General Internal Medicine 09/19/24 Renny Hansen MD [address] [facility] [address] [place] [address] PCP - Medical [facility] 09/12/2409/11 Jazmín Calvillo NP Nurse Practitioner Family Medicine 05/17/24 09/18/24 Cindi Jenkins LSW Sulfur Chloride Operator Family Medicine 11/06/24 12/05/24 Lisa Ramirez LPN 12/05/24 documented as of this encounter
--- OUTSIDE RECORDS SUMMARY | 2025-02-21 14:55 | XMS_ITS | Encounter Summary ---
Author Organization [facility] Address [address] [place] [address] Care Team Providers Care Tool Coordinator Name Role Phone Jazmín Calvillo DRUG ENFORCEMENT AGENT Unavailable [phone] Renny Hansen MD Primary Care Provider [phone] Renny Hansen MD Unavailable [phone] Cindi Jenkins LACQUER SPRAYER Unavailable [phone] Lisa Ramirez COVER ASSEMBLER Unavailable Unavailable Encounter Details Date Type Department Care Team (Late st Contact Info) Description 08/08/2024 Clinisync Result Encounter [facility] External Department Unsolicited Renny Hansen MD 112 [facility] [address] [place] [address] Social History Tobacco Use Types Packs/Day Years [...] How often do you attend gnosticism or anabaptism serv ices? Patient declined 08/30/2023 Do you belong to any clubs o r organizations such as gnosticism groups, unions, fraNEON Concierge or athletic groups, or school groups? Yes [...] Recorded Patient Health Questionnaire-2 Score 0 05/31/2024 [facility] - Occupational Stress Questionnaire Answer [...] AM EDT Office Visit [facility] [place] [address] [facility] 110 [place] [address] Renny Hansen MD 112 [facility] 110 [place] [address] documented as of this encounter Procedures Procedure Name Priority Date/Time Associated Diagnosis Comments FL UPPER GI W AIR* 08/08/2024 6: 31 AM EST documented in this encounter Results * FL UPPER GI W AIR* (08/08/2024 6:31 AM EST) Anatomical Region Laterality Modality Radiographic Jayashree ging 08/08/2024 6:31 AM EST Narrative 08/08/2024 6:33 AM EST The [address] [address] Fluoroscopy Report Signed Patient: BREANN HERRMANN MR#: [id number] : 1945 Acct:[id number] Age/Sex: 78 / F ADM Date: 08/07/24 Loc: [place] Attending Dr: RENNY HANSEN Ordering Physician: RENNY HANSEN Date of Service: 08/07/24 Procedure(s): FL upper GI w air Accession Number(s): [id number] cc: RENNY HANSEN [place] [address] Patient Name: BERANN HERRMANN MRN: [id number] date: 1945 Sex: F Assigned Patient Location: PA Current Patient Location: Accession/Order Number: [id number] Exam Date: 08/07/2024 08:45 Report Date: 08/08/2024 [...] M.D. Signed By: 08/08/24632 DD/ 0 TD/TT: Copy Machine Operator: Procedure Note Radiology, Radiologist, MD - 08/08/2024 [place] [address] Fluoroscopy Report Signed Patient: BREANN HERRMANN TMR#: [id number] : 8Acct:[id number] Age/Sex: 78 / FADM Date: 08/07/24 Loc: [place] Attending Dr: RENNY HANSEN Ordering Physician: RENNY HANSEN Date of Service: 08/07/24 Procedure(s): FL upper GI w air Accession Number(s): [id number] cc: RENNY HANSEN [place] [address] [id number] Patient Name: BREANN HERRMANN MRN: [id number] date: 1945 Sex: F Assigned Patient Location: [place] Current Patient Location: Accession/Order Number: [id number] Exam Date: 08/07/2024 08:45 Report Date: 08/08/2024 [...] Delgado M.D. Signed By:08/08/24632 DD/ 0 TD/TT: Copy Machine Operator: Renny Hansen MD IMG XR PROCEDURES Final Result documented in this encounter Visit Diagnoses Not on filedocumented in this encounter Additional Health Concerns Assessment Noted Time PHQ-9 Depression Total Score: 1 09/06/20 23 2:00 PM EST documented as of this encounter Care Teams Tool Coordinator Relationship Specialty Start Date End Date Renny Hanesn MD [address] [facility] [address] [place] [address] PCP - General Internal Medicine 09/19/24 Renny Hansen MD [address] [facility] [address] [place] [address] PCP - Medical [place] 09/12/2409/11 Jazmín Calvillo NP Nurse Practitioner Family Medicine 05/17/24 09/18/24 Cindi Jenkins LSW [place] [facility] 11/06/24 12/05/24 Lisa Ramirez LPN 12/05/24 documented as of this encounter
--- OUTSIDE RECORDS SUMMARY | 2025-02-21 14:55 | XMS_ITS ---
Author Organization [facility] Address [address] [place] [address] Care Team Providers Care Engineering Writer Name Role Phone Renny Hansen MD Primary Care Provider [phone] Renny Hansen MD Unavailable [phone] Lisa Ramirez LPN Unavailable Unavailable Chronic Care Management (CCM) Status:Enrolled (Active) Start date:11/06/2024 Enrollment date:11/08/2024 Enrollment reason:Identified as high-risk Case Team Name Relationship Phone Lisa Ramirez LPN(Responsible Staff) Continued Care and Services Coordination
--- OUTSIDE RECORDS SUMMARY | 2025-02-21 14:55 | XMS_ITS | Clinical Summary ---
Author Organization [facility] Address [id number] [address] [place] [address] Care Team Providers Care Human Resource Internship Name Role Phone Unavailable Primary Care [...] Medical Devices Not on file Insurance MEDICARE [place]
--- OUTSIDE RECORDS SUMMARY | 2025-02-21 14:55 | XMS_ITS | Encounter Summary ---
Author Organization [facility] Address [address] [place] [address] Care Team Providers Care Vocal Performer Name Role Phone Jazmín Calvillo NP Unavailable [phone] Renny Hansen MD Primary Care Provider [phone] Renny Hansen MD Unavailable [phone] Cindi Jenkins CITRUS PICKER Unavailable [phone] Lisa Ramirez LPN Unavailable Unavailable Encounter [...] How often do you attend restorationist or restoration serv ices? Patient declined 08/30/2023 [...] Recorded Patient Health Questionnaire-2 Score 0 05/31/2024 [facility] of Occupat ional Health - [...] [facility] 110 [place] [address] Renny Hansen MD 112 [facility] 110 [place] [address] documented as of this encounter Procedures Procedure Name Priority Date/Time Associated Diagnosis Comments CT SHOULDER LEFT W IV CONTRAST 06/28/2024 8:42 AM EDT documented in this encounter Results * CT shoulder left w IV contrast (06/28/2024 8:42 AM EDT) Anatomical Region Laterality Modality Upper Extremities, Shoulder Left Comp uted Tomography 06/28/2024 8:42 AM EDT Narrative 06/28/2024 8:45 AM EDT The [address] [address] [address] Scan Report Signed Patient: BREANN STARKS MR#: [id number] : 1945 Acct:[id number] Age/Sex: 78 / F ADM Date: 06/26/24 Loc: CT Attending Dr: Channing Devlin M.D. Ordering Physician: Channing Devlin M.D. Date of Service: 06/26/24 Procedure(s): CT Shoulder LT w/ Con Accession Number(s): [id number] cc: HANSENRENNY [place] [id number] Patient Name: BREANN STARKS MRN: [facility]:[id number] date: 1945 Sex: F Assigned Patient Location: CT Current Patient Location: Accession/Order Number: [id number] Exam Date: 06/26/2024 14:58 Report Date: 06/28/2024 [...] M.D. Signed By: 06/28/2445 DD/ 1 TD/TT: Fish Egg Packer: Procedure Note Radiology, Radiologist, MD - 10/17/[address] [place] [id number] CT Scan Report Signed Patient: BREANN STARKS TMR#: [id number] : 8Acct:[id number] Age/Sex: 78 / FADM Date: 06/26/24 Loc: CT Attending Dr: Non-Staff Physician Magui Ordering Physician: Channing Devlin M.D. Date of Service: 06/26/24 Procedure(s): CT Shoulder LT w/ Con Accession Number(s): [id number] cc: RENNY HANSEN The [place] [id number] Patient Name: BREANN STARKS MRN: [id number] date: 1945 Sex: F Assigned Patient Location: CT Current Patient Location: Accession/Order Number: [id number] Exam Date: 06/26/2024 14:58 Report Date: 06/28/2024 [...] Rob Jurado M.D. Signed By:06/28/2445 DD/ TD/TT: Fish Egg Packer: us Generic External Data Provider IMG CT PROCEDURES Final Result documented in this encounter Visit Diagnoses Not on filedocumented in this encounter Additional Health Concerns Assessment Noted Time PHQ-9 Depression Total Score: 1 09/06/20 23 2:00 PM EST documented as of this encounter Care Teams Vocal Performer Relationship Specialty Start Date End Date Renny Hansen MD [address] [facility] 110 [place] [address] PCP - General Internal Medicine 09/19/24 Renny Hansen MD [address] [facility] 110 [place] [address] PCP - Medical [place] 09/12/2409/11 Jazmín Calvillo NP Nurse Practitioner Family Medicine 05/17/24 09/18/24 Cindi Jenkins LSW Communication Studies Professor Family Medicine 11/06/24 12/05/24 Lisa Ramirez LPN 12/05/24 documented as of this encounter
--- OUTSIDE RECORDS SUMMARY | 2025-02-21 14:55 | XMS_ITS | Encounter Summary ---
Author Organization [facility] Address [address] [place] [address] Care Team Providers Care Child Care Center Administrator Name Role Phone Paulette Johnson MD Primary Care Provider [phone] Shaikh BEREKET Denis Primary Care Provider [phone] Renny Hansen MD Primary Care Provider [phone] Balta Cardenas MD Unavailable [phone] Encounter Details Date Type Department Care Team (Late st Contact Info) Description 04/28/2022 Orders Only [facility] Family Medicine [address] [place] [address] Roopa Mensah MA Social History [...] Info) Description 05/15/2025 11:00 AM EDT Follow-Up [facility] [address] [place] [address] Ortega Hines MD [address] [facility]/[place] [address] documented as of this encounter Visit Diagnoses Not on filedocumented in this encounter Care Teams Child Care Center Administrator Relationship Specialty Start Date End Date Paulette Johnson MD [address] PCP - General 05/03/22 07/04/23 Shaikh Denis MD [address] [place] [address] PCP - General Family Medicine 07/05/23 07/17/24 Renny Hansen MD [address] [place] [address] PCP - General Internal Medicine 07/18/24 Balta Cardenas MD [address] [place] [address] Referring Physician 11/15/24 documented as of this encounter
[2025-02-21 15:13] LABS: Basophils Absolute Auto 0.1 10^3/uL (0.0-0.1); Basophils Percent Auto 0.8 % (0.2-2.0); Eosinophils Absolute Auto 0.2 10^3/uL (0.0-0.7); Eosinophils Percent Auto 2.1 % (0.9-7.0); Hematocrit 31.7 % (36.0-48.0); Hemoglobin 9.7 g/dL (12.0-16.0); Immature Granulocytes Abs Auto 0.04 10^3/uL (0.00-0.03); Immature Granulocytes Pct Auto 0.4 % (0.0-0.5); Lymphocytes Absolute Auto 2.4 10^3/uL (1.2-3.8); Lymphocytes Percent Auto 21.3 % (20.5-60.0); Mean Corpuscular HGB Conc 30.6 g/dL (29.9-35.2); Mean Corpuscular Hemoglobin 24.4 pg (26.7-34.0); Mean Corpuscular Volume 79.8 fL (81.0-99.0); Mean Platelet Volume 8.8 fL (9.5-13.5); Monocytes Absolute Auto 0.9 10^3/uL (0.3-0.8); Monocytes Percent Auto 7.6 % (1.7-12.0); Neutrophils Absolute Auto 7.6 10^3/uL (1.4-6.5); Neutrophils Percent Auto 67.8 % (43.0-75.0); Platelet Count 357 10^3/uL (150-450); Red Blood Count 3.97 10^6/uL (4.20-5.40); Red Cell Distribution Width 16.9 % (11.0-15.0); White Blood Count 11.2 10^3/uL (4.0-11.0)
[2025-02-21 15:29] LABS: Anion Gap 13.7; BUN Creatinine Ratio 28.2; C Reactive Protein <0.50 mg/dL (<=0.50); Calcium 9.3 mg/dL (8.5-10.1); Carbon Dioxide 27.6 mmol/L (21.0-32.0); Chloride 100 mmol/L (98-107); Estimated GFR (African America >60 (>=60 mL/min/1.73m^2); Estimated GFR (Non-African Ame >60 (>=60 mL/min/1.73m^2); Glucose 100 mg/dL (74-106); Potassium 4.3 mmol/L (3.5-5.1); Sodium 137 mmol/L (136-145)
== END 2025-02-21 14:48 | disposition home or self-care (01) ==
LOC: LAB 14:52
PROVIDERS: PCP Internal Medicine
DX: M25.512 Pain in left shoulder (principal)
CPT/HCPCS: 36415; 80048; 85025; 86140

== ENCOUNTER 2025-03-27 10:28 | Outpatient (OUT) | payer MEDICARE, SELFPAY ==
--- OUTSIDE RECORDS SUMMARY | 2025-03-27 10:31 | XMS_ITS | Clinical Summary ---
Author Organization [facility] Address [id number] [address] [place] [address] Care Team Providers Care Delicatessen Department Manager Name Role Phone Unavailable Primary Care Provider [...] Medical Devices Not on file Insurance MEDICARE [facility]
--- OUTSIDE RECORDS SUMMARY | 2025-03-27 10:31 | XMS_ITS | Patient Health Record ---
Author Organization [facility] Address [address] [place] [address] Care Team Providers Care Retail Equipment Associate Name Role Phone SHAIKH DOMINGUEZ Primary Care Provider James Garcia Unavailable [phone] Reason For Referral No Information Plan Of Treatment Pending Test Test Name Order Date MRI : Shoulder W/O Contrast Left - [id number] 03/05/2024 ORDERS 03/19/2024 Chest 2 views - [id number] 03/19/2024 Insurance Providers Payer Name Payer Address Payer Phone Subscriber Number Group Number Insured Name Patient Relationship to Insured Coverage Start Date Coverage End Date Medicare [employer] [address] [facility] [place] [phone] [id number] MAXIMUS HERRMANN Self - patient is the insured
--- OUTSIDE RECORDS SUMMARY | 2025-03-27 10:31 | XMS_ITS | Clinical Summary ---
Author Organization [facility] Address [address] [facility] [place] [address] Phone Care Team Providers Care Hop Grower Name Role Phone Unavailable Primary Care Provider [...]
--- OUTSIDE RECORDS SUMMARY | 2025-03-27 10:31 | XMS_ITS | Clinical Summary ---
Author Organization [facility] Address [address] [place] [address] Care Team Providers Care Cleaning Associate Name Role Phone Paulette Johnson MD Primary Care Provider [phone] Scott Cruz MD Unavailable [phone] Allergies Active Allergy Reactions Criticality Noted Date [...] Annual We llness Visit 09/12/2024 Influenza Vaccine (#1) 2025 , 07/08/2022, 08/20/2021, Additional history exists Pneumococcal Vaccine: 50+ Completed 2020, 08/04/2020, 07/05/2017 RSV Vaccine Completed 08/25/2023 Insurance [employer] MEDICARE Care Teams Cleaning Associate Relationship Specialty Start Date End Date Paulette Johnson MD [address] [place], [place] [phone] PCP - General 01/05/06 Scott Cruz MD [address] [address] Referring Infectious Diseases 05/07/24
--- OUTSIDE RECORDS SUMMARY | 2025-03-27 10:31 | XMS_ITS | Encounter Summary ---
Author Organization [facility] Address [address] [place] [address] Care Team Providers Care Ecological Modeler Name Role Phone Paulette Johnson MD Primary Care Provider [phone] Shaikh BEREKET Denis Primary Care Provider [phone] Renny Hansen MD Primary Care Provider [phone] Balta Cardenas MD Unavailable [phone] Encounter Details Date Type Department Care Team (Late st Contact Info) Description 04/28/2022 Orders Only [facility] Family Medicine [address] [place] [address] Roopa Mensah MA Social History [...] Description 05/15/2025 11:00 AM EDT Follow-Up [facility] Infectious Disease [address] [place] [address] Ortega Hines MD [address] [facility]/[place] [address] documented as of this encounter Visit Diagnoses Not on filedocumented in this encounter Care Teams Ecological Modeler Relationship Specialty Start Date End Date Paulette Johnson MD [address] PCP - General 05/03/22 07/04/23 Shaikh Denis MD [address] PCP - General Family Medicine 07/05/23 07/17/24 Renny Hansen MD [address] [facility] [address] [place] [address] PCP - General Internal Medicine 07/18/24 Balat Cardenas MD [address] [place] [address] Referring Physician 11/15/24 documented as of this encounter
--- NOTE | 2025-03-27 11:03 | PM.CN ---
Consult Note: HPI Data of Consult Patient: known to practice within the last 3 years Requesting Physician: Claire Clement NP Primary Care Provider: FAVIAN LUNA Consult Narrative Reason for consult: f/u Narrative: Breann Starks a pleasant 79 year old female with chronic low back and LE pain presents for evaluation. Pt has chronic pain secondary to lumbar ddd, lumbar stenosis, lumbar spondylosis, and sacroiliac joint pain. She has failed > 6 weeks of PT and provider guided HEP, heat, ice, tylenol, and cannot take NSAIDs. pain today 5/10 increasing to 10/10. reports prior lumbar TFESI provided at least 50% improvement for 3 months and feels this is wearing off as shes having increased sharp burning pain in right>left leg. cc:: CC: Claire Clement NP Review of Systems ROS Status of ROS 10 or more systems reviewed and unremarkable except as noted in history and below [facility] Medical History (Updated 01/27/25 @ 10:54 by Holley Johnson MD) Arthritis �M19.90 - Unspecified osteoarthritis, unspecified site (ICD-10) Chronic obstructive pulmonary disease �J44.9 - Chronic obstructive pulmonary disease, unspecified (ICD-10) Peptic ulcer �K27.9 - Peptic ulcer, site unspecified, unspecified as acute or chronic, without hemorrhage or perforation (ICD-10) Dyspnea on exertion �R06.09 - Other forms of dyspnea (ICD-10) Anemia �D64.9 - Anemia, unspecified (ICD-10) Hypertension �I10 - Essential (primary) hypertension (ICD-10) Extremity edema �R60.0 - Localized edema (ICD-10) Congestive heart failure �I50.9 - Heart failure, unspecified (ICD-10) Atrial fibrillation �I48.91 - Unspecified atrial fibrillation (ICD-10) Shoulder pain �M25.519 - Pain in unspecified shoulder (ICD-10) Fatty liver �K76.0 - Fatty (change of) liver, not elsewhere classified (ICD-10) History of shingles �Z86.19 - Personal history of other infectious and parasitic diseases (ICD-10) Osteoarthritis �M19.90 - Unspecified osteoarthritis, unspecified site (ICD-10) Pacemaker �Z95.0 - Presence of cardiac pacemaker (ICD-10) Hiatal hernia �K44.9 - Diaphragmatic hernia without obstruction or gangrene (ICD-10) Low back pain �M54.50 - Low back pain, unspecified (ICD-10) Irregular heart beat �I49.9 - Cardiac arrhythmia, unspecified (ICD-10) Surgical History History of shoulder replacement �Z96.619 - Presence of unspecified artificial shoulder joint (ICD-10) S/P rotator cuff repair �Z98.890 - Other specified postprocedural states (ICD-10) History of colonoscopy �Z98.890 - Other specified postprocedural states (ICD-10) S/P YANELI-BSO �Z90.710 - Acquired absence of both cervix and uterus (ICD-10) �Z90.722 - Acquired absence of ovaries, bilateral (ICD-10) �Z90.79 - Acquired absence of other genital organ(s) (ICD-10) H/O cardiac catheterization �Z98.890 - Other specified postprocedural states (ICD-10) H/O arthroscopy of shoulder �Z98.890 - Other specified postprocedural states (ICD-10) H/O arthroscopy of knee �Z98.890 - Other specified postprocedural states (ICD-10) History of appendectomy �Z90.49 - Acquired absence of other specified parts of digestive tract (ICD-10) History of total knee arthroplasty �Z96.659 - Presence of unspecified artificial knee joint (ICD-10) Social History Within the past year, how often did you have a drink containing alcohol: monthly or less Smoking status: Former smoker Non-prescribed substance use: denies use Previous occupational history: retired Highest level of school completed/degree received: high school graduate Little interest or pleasure in doing things: not at all Feeling down, depressed, or hopeless: not at all Meds Home Medications and Allergies Home Medications �Medication �Instructions �Recorded �Confirmed �Type cholecalciferol (vitamin D3) 125 5,000 unit PO DAILY 02/16/23 02/11/25 History mcg (5,000 unit) tablet (Vitamin D3) flecainide 100 mg tablet 100 mg PO Q12H 02/16/23 02/11/25 History omeprazole 40 mg capsule,delayed 40 mg PO DAILY 02/16/23 02/11/25 History release spironolactone 25 mg tablet 25 mg PO DAILY 02/16/23 02/11/25 History (Aldactone) verapamil 180 mg tablet,extended 180 mg PO Q12H 02/16/23 02/11/25 History release (Calan SR) apixaban 5 mg tablet (Eliquis) 5 mg PO BID 05/11/23 02/11/25 History furosemide 40 mg tablet 40 mg PO DAILY 03/01/24 02/11/25 History naloxone 4 mg/actuation nasal 4 mg intranasal Q3M PRN opioid 05/17/24 02/11/25 Rx spray (Narcan) overdose #2 ea baclofen 10 mg tablet 10 mg PO TID #90 tabs 10/10/24 02/11/25 Rx hydrocodone 5 mg-acetaminophen 325 1 tab PO TID PRN pain #90 tabs 10/26/24 02/11/25 Rx mg tablet hydrocodone 5 mg-acetaminophen 325 1 tab PO TID PRN pain #90 tabs 01/03/25 02/11/25 Rx mg tablet hydrocodone 5 mg-acetaminophen 325 1 tab PO TID PRN pain #90 tabs 02/11/25 Rx mg tablet penicillin V potassium 500 mg mg 02/11/25 History tablet baclofen 10 mg tablet 10 mg PO TID #90 tabs 03/06/25 Rx Allergies Allergy/AdvReac Type Severity Reaction Status Date / Time No Known Drug Allergies Allergy Verified 02/11/25 11:11 Exam Constitutional Documenting provider has reviewed patient's vital signs: yes Common normals: no apparent distress, oriented x3, healthy appearing, alert and well nourished General appearance: cooperative [facility] Common normals: normocephalic, hearing grossly normal bilaterally and moist oral mucous membranes Head and scalp: normocephalic Eye Common normals: PERRL Pupil: PERRL Neck & C-Spine Common normals: full ROM General: normal visual inspection Chest Common normals: inspection of chest normal Respiratory Common normals: normal respiratory effort, no retractions and no use of accessory muscles Back & Pelvis Lumbar spine/lower back: ROM limited, pain with ROM, straight leg raise positive right and straight leg raise positive left Other: decreased sensation bilateral L5/S1 strength 4/5 in BLE Neuro Common normals: oriented x3 Sensorium/orientation: alert Psych Common normals: mental status grossly normal, thought process normal, cooperative, affect normal, speech normal and activity/motor behavior normal Speech: normal speech Thought process: normal thought process Results Additional Findings Additional findings: If on a controlled substance or opioids, I have checked an [place]AR[place] report on this patient and there are no aberrancies noted in the prescribing history.��If on a controlled substance or opioid a drug screen was completed and reviewed within the last year, and if there has not been a drug screen completed we ordered one today to monitor higher risk, state monitored pain medication use. As part of providing excellent, safe, comprehensive care, the following was completed at our patient's visit: 1. A medication reconciliation and review to ensure accurate knowledge of current/active medications, including asking our patients to inform us about any juid-nqw-eatvsoo medications or herbal remedies/nutritional supplements/alternative remedies. 2. A review to specifically ensure our patients have had annual screening for screening for depression, screening for tobacco use, and screening for unhealthy alcohol use. For concerning screenings had a discussion with the patient, provided patient education, and recommended follow-up with primary care provider when appropriate. If patient noted with a risk of falling, they received education on strength, gait, and balance training to prevent future risk of falling. Portions of this note may have been carried over from the previous visit and updated as appropriate. Please note this office utilizes paper charting in addition to the electronic medical record. A list of current medications, vitals, and PMH is available there as the clinical staff outside of myself do not have access to [facility] charting during the clinic day operations. As part of providing quality comprehensive care the current medications, vitals, and PMH were reviewed in the paper chart. Assessment and Plan Assessment and Plan (1) Lumbar stenosis with neurogenic claudication: Assessment and Plan: 4-7-25 right L4-5 L5-S1 TFESI >50% improvement greater than 3 months 2-17-25 left l4-5 l5-s1 TFESI >50% improvement greater than 3 months (2) Sacroiliitis: Assessment and Plan: 6--25 right SIJ injection >50% improvement ongoing (3) Chronic use of opiate drug for therapeutic purpose: Assessment and Plan: I feel these medications are improving the patient's quality of life and allow them to tolerate activities of daily living as well as participate in recreational activity.� The patient does not report intolerable side effects. The patient is NOT opioid naive and non-pharmacologic and non-opioid treatment has failed to significantly relieve the patient's pain and improve functionality. The patient has a diagnosis that is related to a somatic or visceral pain etiology. � �� I reviewed with the patient the potential risks and side effects with the use of� opioid medications including but not limited to respiratory depression,� sedation, and even . Within the last 12 months I have verified the patient has access to naloxone should� these effects occur. The patient was advised to let� their family know they had Naloxone in case they would need to administer� the medication. I advised the patient to avoid the use of any other� sedation substances including alcohol, THC, and benzodiazepines while� taking opioid medications due to the risk of compounding side effects and� detrimental outcomes. within the last 12 months I have reviewed the [facility], pain treatment agreement and urine drug screen.� �� A drug screen was completed within the last year, and no aberrancies were noted regarding their use of controlled substances. The patient understands they are subject to the terms and conditions of the pain contract that they have signed. � �� I have checked an OARRS report on this patient today and there are no aberrancies noted in the prescribing history.� (4) Lumbar spondylosis: (5) Chronic anticoagulation: Plan proceed with bilateral L5-S1 TFESI under fluoroscopy continue current medication regimen, risks vs benefits reviewed f/u after injection
== END 2025-03-27 10:29 | disposition home or self-care (01) ==
PROVIDERS: PCP Internal Medicine; Visit Provider Nurse Practitioner
DX: M48.062 Spinal stenosis, lumbar region with neurogenic claudication (principal); M46.1 Sacroiliitis, not elsewhere classified; Z79.891 Long term (current) use of opiate analgesic; M47.816 Spondylosis without myelopathy or radiculopathy, lumbar region; Z79.01 Long term (current) use of anticoagulants
CPT/HCPCS: G0463

== ENCOUNTER 2025-04-22 08:40 | Day surgery (SDC) | payer MEDICARE, SELFPAY ==
[2025-04-22 09:03] VITALS: BP 129/63; PULSE 58; TEMP 36.4; O2SAT 95
[2025-04-22] MEDS: 0.9 % SODIUM CHLORIDE 10 ML SYRINGE - SALINE FLUSH INJ (09:31)
[2025-04-22] MEDS: BUPIVACAINE HCL 0.25% PF 25 MG/10 ML VIAL INJ (09:31)
[2025-04-22] MEDS: IOHEXOL 240 MG/ML - 10 ML VIAL 24 MG INJ (09:32)
[2025-04-22] MEDS: LIDOCAINE HCL 2% 400 MG/20 ML MDV 3 ML INJ (09:32)
[2025-04-22] MEDS: METHYLPREDNISOLONE ACETATE 80 MG/ML VIAL INJ (09:32)
--- NOTE | 2025-04-22 09:36 | W.PM.PROCNOT ---
Date of procedure: 04/22/25 Pre-op diagnosis: Pain due to lumbar stenosis with neurogenic claudication Post-op diagnosis: same as pre-op Procedure: Procedure: Bilateral L5-S1 transforaminal epidural steroid injection Medications: Bupivacaine 0.25% 2cc, lidocaine 2% 1cc, depomedrol 80mg The patient was seen and examined in the preoperative holding area.? Informed consent was obtained and placed on the chart.? Patient was brought to the medical procedure unit and placed in the prone position where a timeout was completed verifying the correct patient, procedure site, position, and planned special equipment using sterile aseptic technique.? Under direct fluoroscopic visualization a 25-gauge Quincke tipped spinal needle was advanced at level left L5-S1 to the designated neural foramen where contrast dye was injected to show adequate spread.? There was no evidence of vascular or adverse uptake.? Epidural spread was appreciated.? The above-mentioned injectate was then placed in a 1.5 mL aliquot preceded by negative aspiration.? The needle was removed. The same procedure, at the same level, was completed on the opposite side. ? Patient was taken to the postprocedural recovery area and monitored for an appropriate length of time before found suitable for discharge in the accompaniment of a responsible adult.? Anesthesia: Local Surgeon: Miguel Murphy Pathology: none sent Condition: stable Disposition: no change
== END 2025-04-22 09:50 | disposition home or self-care (01) ==
LOC: SURGOUT 08:41
PROVIDERS: PCP Internal Medicine; Visit Provider Anesthesiology
DX: M48.062 Spinal stenosis, lumbar region with neurogenic claudication (principal); M54.50 Low back pain, unspecified
CPT/HCPCS: 64483; J0665; J1010; Q9966

== ENCOUNTER 2025-04-24 12:59 | Outpatient (OUT) | payer MEDICARE, SELFPAY ==
--- OUTSIDE RECORDS SUMMARY | 2025-04-18 11:00 | XMS_ITS | Encounter Summary ---
Author Organization [facility] Address [address] [facility] [place] [address] Care Team Providers Care Seater Grinder Name Role Phone Renny Hansen MD Primary Care Provider [phone] Renny Hansen MD Unavailable [phone] Lisa Ramirez LPN Unavailable Encounter Details Date Type Department Care Team (Late st Contact Info) Description 04/18/2025 11:00 AM EDT Office Visit [facility] 112 [facility] 110 [place] [id number] Eleanor Leahy PA 112 [facility] 110 [place] [address] Chronic obstructive pulmonary disease, unspecified COPD type [...] How often do you attend chur or jain services? Patient declined 11/12/2024 Do you belong to any clubs o r organizations such as taoist groups, unions, fraternal or athletic groups, or [...] Recorded Patient Health Questionnaire-2 Score 0 04/18/2025 [facility] [place] of Occupat ional Health - Occupational Stress [...] a [facility] (including now)? Patient refused 08/30/2023 Housing Stability [...] any time in the past 12 m [facility], were you homeless or living in a mcfp (including now)? No 11/12/2024 Comments Unknown Sex [...] old. She would like it sent to [facility] in [place] ([facility] [place] She uses it as needed. She does [...] by mouth every 12 (twelve) hours HYDROcodone-acetaminophen ([place]) 5-325 MG tablet Take 1 tablet by [...] broken. Will fax order for nebulizer to [facility], . It is medically necessary for patient [...] EDT Office Visit [facility]endejas 112 [facility] [address] [place] [address] Renny Hansen MD 112 [facility] 110 [place] [address] documented as of this encounter Visit Diagnoses Diagnosis Chronic obstructive pulmonary disease, unspecified COPD type (HCC)- Primary documented in this encounter Additional Health Concerns Assessment Noted Time PHQ-9 Depression Total Score: 1 09/06/20 23 2:00 PM EST documented as of this encounter Care Teams Seater Grinder Relationship Specialty Start Date End Date Renny Hansen MD [address] [facility] 110 [place] [address] PCP - General Internal Medicine 09/19/24 Renny Hasnen MD [address] [facility] 110 [place] [address] PCP - Medical [facility] 09/12/2409/11 Lisa Ramirez LPN [address] [facility] [address] [place] [address] 12/05/24 documented as of this encounter
--- OUTSIDE RECORDS SUMMARY | 2025-04-24 09:30 | XMS_ITS | Encounter Summary ---
Author Organization [facility] Address [address] [facility] [place] [address] Care Team Providers Care Marketing Sales Manager Name Role Phone Renny Hansen MD Primary Care Provider [phone] Renny Hansen MD Unavailable [phone] Lisa Ramirez LPN Unavailable Encounter Details Date Type Department Care Team (Late st Contact Info) Description 04/24/2025 9:30 AM EDT Office Visit [facility] 112 [facility] 110 [place] [address] Shannon Robles, DISTRICT AGENT 112 [facility] 110 [place] [address] Hematuria, unspecified type Social History Tobacco Use Types Packs/Day Years [...] How often do you attend chur or synagogue services? Patient declined 11/12/2024 Do you belong to any clubs o r organizations such as synagogue groups, unions, fraternal or athletic groups, or [...] Date Recorded Patient Health Questionnaire-2 Score 0 04/24/2025 [facility] - Occupational Stress Questionnaire [...] nursing home (including now)? Patient refused 08/30/2023 Housing [...] were you homeless or living in a nursing home (including now)? No 11/12/2024 Comments Unknown Sex and Gender Information Value Date Recorded Sex Assigned at Not on file Legal Sex Female 6:35 PM EDT Gender Identity Not on file Sexual Orientation Not on file documented as of this encounter Last Filed Vital Signs Vital Sign Reading Time Taken Comments Blood Pressure 138/68 04/24/2025 9:41 AM EDT Pulse 81 04/24/2025 9:41 AM EDT Temperature - - Respiratory Rate 17 04/24/2025 9:41 AM EDT Oxygen Saturation 97% 04/24/2025 9:41 AM EDT Inhaled Oxygen Concentration - - Weight 103 kg (226 lb) 04/24/2025 9:41 AM EDT Height 144.8 cm (4' 9 ) 04/24/2025 9:41 AM EDT Body Mass Index 48.91 04/24/2025 9:41 AM EDT documented in this encounter Functional Status * Over the past 2 weeks, how often have you been bothered by any of the following problems? Question Answer Date of Assessment Author Little interest or pleasure in doing things Not at all 04/24/2025 9:33 AM EDT GEOVANNY ALAS Feeling down, depressed, or hopeless Not at all 04/12 9:33 AM EDT GEOVANNY ALAS Patient Health Questionnaire-2 Score 0 04/12 9:33 AM EDT GEOVANNY ALAS documented as of this encounter Progress Notes * Shannon Robles NP - 04/24/2025 9:30 AM EDT Images from the original note were not included. Subjective Patient ID: Breann Starks is a 79 y.o. female who presents for No chief complaint on file.. Breann presents today for a possible UTI. She is having issues with getting up 3-4 times a night and she feels like she can't empty her bladder. This started 3 days ago. UTI This is a new problem. The current episode started 1 to 4 weeks ago. The problem has been graduallyworsening since onset. Associated symptoms include hematuria and pain. The pain is present in the suprapubic region. Her pain is at a severity of 3/10. Over the past 2 weeks, how often have you been bothered by any of the following problems? Little interest or pleasure in doing things: Not at all Feeling down, depressed, or hopeless: Not at all Patient Health Questionnaire-2 Score: 0 Current Outpatient Medications on File Prior to Visit Medication Sig Dispense Refill apixaban (Eliquis) 5 MG tablet Take 1 [...] by mouth every 12 (twelve) hours HYDROcodone-acetaminophen ([place]) 5-325 MG tablet Take 1 tablet by mouth in the morning and 1 tablet in the evening and 1 tablet before bedtime. ipratropium-albuterol (Duo-Neb) 0.5-2.5 mg/3 mL nebulizer solution Take 3 mL by nebulization in themorning and 3 mL at noon and 3 mL in the evening and 3 mL before bedtime. 150 mL 2 Multiple Vitamins-Minerals (CENTRUM SILVER 50+WOMEN PO) Take 1 tablet by mouth in the morning. omeprazole (PriLOSEC) [address] capsule Take 1 capsule (40 mg) by mouth Daily 100 capsule 3 penicillin v potassium (Veetid) 500 MG tablet Take 500 mg by mouth in the morning and 500 mg at noon and 500 mg in the evening and 500 mg before bedtime. Respiratory Therapy Supplies (Nebulizer/Tubing/Mouthpiece) kit 1 each See administration instructions Use daily as needed per instructions on medication. 1 kit 0 rOPINIRole (Requip) 0.5 MG tablet Take 1 tablet (0.5 mg) by mouth in the evening. Take with meals (Patient not taking: Reported on 04/18/2025) 30 tablet 11 saccharomyces boulardii (Florastor) 250 MG capsule Take 250 mg by mouth in the morning and 250 mg before bedtime. spironolactone (Aldactone) 50 MG [...] (two) times a day 45 g 1 [DISCONTINUED] ipratropium-albuterol (Duo-Neb) 0.5-2.5 mg/3 mL nebulizer solution Take 3 mL by nebulization in the morning and 3 mL at noon and 3 mL in the evening and 3 mL before bedtime. No current facility-administered medications on file prior [...] Vitals Smoking Status Former Review of Systems Constitutional: Negative. HENT: Negative. Eyes: Negative. Respiratory: Negative. Cardiovascular: Negative. Gastrointestinal: Negative. Genitourinary: Positive for hematuria. Musculoskeletal: Negative. Skin: Negative. Neurological: Negative. Psychiatric/Behavioral: Negative. Endocrine: Negative. Objective Physical Exam Vitals reviewed. Constitutional: Appearance: Normal appearance. HENT: Head: Normocephalic. Nose: Nose normal. Mouth/Throat: Mouth: Mucous membranes are moist. Pharynx: Oropharynx is clear. Eyes: Conjunctiva/sclera: Conjunctivae normal. Cardiovascular: Rate and Rhythm: Normal rate and regular rhythm. Pulmonary: Effort: Pulmonary effort is normal. Skin: General: Skin is warm and dry. Neurological: General: No focal deficit present. Mental Status: She is alert and oriented to person, place, and time. Psychiatric: Mood and Affect: Mood normal. Behavior: Behavior normal. Thought Content: Thought content normal. Judgment: Judgment normal. Assessment/Plan Diagnoses and all orders for this visit: Hematuria, unspecified type - POCT Urinalysis dipstick - URINARY TRACT INFECTION (HTRX); Future - nitrofurantoin, macrocrystal-monohydrate, (Macrobid) 100 MG capsule; Take 1 capsule (100 mg) by mouth in the morning and 1 capsule (100 mg) before bedtime. Do all this for 7 days. Start the above medications as directed. Increase water intake, get plenty of rest. Advised patientthat the urine will be sent out for culture. May need to change the antibiotic based on the cultureresults. Cranberry juice ok. Avoid bath tubs and hot tubs or use the restroom afterwards, always wipe front to back, avoid fragrance soaps in that area, urinate after intercourse if sexually active. Discussed if patient develops any N/V, fever/chills, or symptoms dramatically increase, the patient is to go to the ER. Otherwise follow up at our office if no improvement in one week. No follow-ups on file. documented in this encounter Plan of Treatment Upcoming Encounters Date Type Department Care Team (Late st Contact Info) Description 05/16/2025 11:00 AM EDT Office Visit [facility] Julien Zendejas [address] [phone] Renny Hansen MD 112 [facility] 110 [place] [address] Scheduled Orders Name Type Priority Associated Diagnoses Orde r Schedule URINARY TRACT INFECTION (HTRX) Lab Routine Hematuria, unspecified type Expected: 04/24/2025 (Approximate), Expires: 04/24/2026 documented as of this encounter Procedures Procedure Name Priority Date/Time Associated Diagnosis Comments POCT URINALYSIS DIPSTICK Routine 04/24/2025 10:21 AM EDT Hematuria, unspecified type documented in this encounter Results * (ABNORMAL) POCT Urinalysis dipstick (04/24/2025 10:21 AM EDT) Color, UA Yellow Clarity, UA Clear Glucose, UA Negative Negative - 2000(110) ++++ mg/dL Bilirubin, UA Negative Negative - 4(70) +++ mg/dL Ketones, UA Negative Negative - 160(16) ++++ mg/dL Spec Grav, UA 1.050 1 - 1.03 Blood, UA Positive Negative - 50 Shadi/mcL pH, UA 6.0 5 - 9 Protein, UA Negative Negative - 2000(20) ++++ mg/dL Urobilinogen, UA 0.2 0.2 - 12 mg/dL Leukocytes, UA Negative Negative - 500+++ Rosette/mcL Nitrite, UA Negative Negative - Positive Urine 04/24/2025 10:2 1 AM EDT Shannon Robles DISTRICT AGENT POINT OF CARE TEST ENTER/LUIS EDUARDO T ORDERABLES Final Result documented in this encounter Visit Diagnoses Diagnosis Hematuria, unspecified type documented in this encounter Additional Health Concerns Assessment Noted Time PHQ-9 Depression Total Score: 1 09/06/20 23 2:00 PM EST documented as of this encounter Care Teams Marketing Sales Manager Relationship Specialty Start Date End Date Renny Hansen MD [address] [facility] 110 [place] [address] PCP - General Internal Medicine 09/19/24 Renny Hansen MD [address] [facility] 110 [place] [address] PCP - Medical [facility] 09/12/2409/11 Lisa Ramirez LPN [address] [facility] 110 [place] [address] 12/05/24 documented as of this encounter
--- OUTSIDE RECORDS SUMMARY | 2025-04-24 13:07 | XMS_ITS | Clinical Summary ---
Author Organization [facility] Address [address] [facility] [place] [address] Phone Care Team Providers Care Tub Operator Name Role Phone Unavailable Primary Care Provider [...]
--- OUTSIDE RECORDS SUMMARY | 2025-04-24 13:07 | XMS_ITS | Encounter Summary ---
Author Organization [facility] Address [address] [place] [address] Care Team Providers Care Digital Marketing Intern Name Role Phone Shaikh BEREKET Denis Primary Care Provider [phone] Jazmín Calvillo LEADITE MAN Unavailable [phone] Renny Hansen MD Primary Care Provider [phone] Renny Hansen MD Unavailable [phone] Cindi Jenkins RN SEXUAL ASSAULT Unavailable [phone] Lisa Ramirez POT FLUXER Unavailable Encounter Details Date Type Department Care Team (Late st Contact Info) Description 03/01/2024 Clinisync Result Encounter [facility] External Department Unsolicited Shaikh Denis MD [address] [place] [address] Social History Tobacco Use Types Packs/Day Years [...] How often do you attend adventist or catholic serv ices? Patient declined 08/30/2023 Do you [...] Patient Health Questionnaire-2 Score 0 02/27/2024 [facility] of Occupat ional [...] EDT Office Visit [facility] [place] [facility] [address] [facility] 110 [place] [address] Renny Hansen MD [address] [facility] 110 [place] [address] documented as of this encounter Procedures Procedure Name Priority Date/Time Associated Diagnosis Comments XR CHEST 2V 03/01/2024 9:53 AM EDT documented in this encounter Results * XR CHEST 2V (03/01/2024 9:53 AM EDT) Anatomical Region Laterality Modality Other 03/01/2024 9:53 AM EDT Narrative 03/01/2024 9:56 AM EDT The [address] [address] XRay Report Signed Patient: MAXIMUS STARKS MR#: [id number] : 1945 Acct:[id number] Age/Sex: 78 / F ADM Date: 02/29/24 Loc: CARD Attending Dr: Shaikh Cira Kilgore Ordering Physician: Shaikh Magui Denis Date of Service: 02/29/24 Procedure(s): XR chest 2V Accession Number(s): [id number] cc: Shaikh Magui Denis The [address] [address] Patient Name: MAXIMUS STARKS MRN: [id number] date: 1945 Sex: F Assigned Patient Location: CARD Current Patient Location: LAB Accession/Order Number: [id number] Exam Date: 02/29/2024 10:05 Report Date: 03/01/2024 [...] mild pulmonary vascular congestion. Electronically authenticated by: JUAN MANTILLA Date: 03/01/2024 09:53 Dictated By: Juan Mantilla M.D. Signed By: 03/01/24 0956 DD/ TD/TT: Ballet Dancer: Procedure Note Radiology, Radiologist, MD - 03/01/[address] [address] XRay Report Signed Patient: MAXIMUS STARKS TMR#: [id number] : 8Acct:[id number] Age/Sex: 78 / FADM Date: 02/29/24 Loc: CARD Attending Dr: Shaikh Cira Kilgore Ordering Physician: Shaikh Magui Denis Date of Service: 02/29/24 Procedure(s): XR chest 2V Accession Number(s): [id number] cc: Shaikh Magui Denis The [address] [address] Patient Name: MAXIMUS STARKS MRN: [id number] date: 1945 Sex: F Assigned Patient Location: CARD Current Patient Location: LAB Accession/Order Number: [id number] Exam Date: 02/29/2024 10:05 Report Date: 03/01/2024 [...] mild pulmonary vascular congestion. Electronically authenticated by: JUAN MANTILLA Date: 03/01/2024 09:53 Dictated By: Juan Mantilla M.D. Signed By:03/01/24 0956 DD/ TD/TT: Ballet Dancer: us Shaikh Cira [facility] Final Result documented in this encounter Visit Diagnoses Not on filedocumented in this encounter Additional Health Concerns Assessment Noted Time PHQ-9 Depression Total Score: 1 09/06/20 23 2:00 PM EST documented as of this encounter Care Teams Digital Marketing Intern Relationship Specialty Start Date End Date Shaikh Denis MD [address] [place] [address] PCP - General Internal Medicine 10/17/23 05/16/24 Renny Hansen MD [address] [facility] 110 [place] [address] PCP - General Internal Medicine 09/19/24 Renny Hansen MD [address] [facility] 110 [place] [address] PCP - Medical [facility] 09/12/2409/11 Jazmín Calvillo NP [address] [place] [address] Nurse Practitioner Family Medicine 05/17/24 09/18/24 Cindi Jenkins, GIDEON [address] [place] [address] Commercial Correspondent Family Medicine 11/06/24 12/05/24 Lisa Ramirez LPN [address] [facility] 110 [place] [address] 12/05/24 documented as of this encounter
--- OUTSIDE RECORDS SUMMARY | 2025-04-24 13:07 | XMS_ITS | Encounter Summary ---
Author Organization [facility] Address [address] [place] [address] Care Team Providers Care Network Systems Operator Name Role Phone Shaikh BEREKET Denis Primary Care Provider [phone] Shaikh BEREKET Denis Primary Care Provider [phone] Jazmín Calvillo PROPRIETARY TRADER Unavailable [phone] Renny Hansen MD Primary Care Provider [phone] Renny Hansen MD Unavailable [phone] Cindi Jenkins INSTRUCTOR ADJUNCT SURGICAL TECHNICIAN Unavailable [phone] Lisa Ramirez PLANNING AIDE Unavailable Encounter Details Date Type Department Care Team (Late st Contact Info) Description 09/07/2023 Abstract [facility] [address] [place] [address] Shaikh Denis MD [address] [place] [address] Social History Tobacco Use Types Packs/Day Years [...] week 08/30/2023 How often do you attend lutheran or nondenominational serv ices? Patient declined 08/30/2023 [...] Recorded Patient Health Questionnaire-2 Score 0 09/06/2023 [facility] of Occupat ional Health - Occupational Stress [...] Description 05/16/2025 11:00 AM EDT Office Visit CANDIDO Zendejas [address] [facility] 110 [place] [address] Renny Hansen MD 112 [facility] 110 [place] [address] documented as of this encounter Visit Diagnoses Not on filedocumented in this encounter Additional Health Concerns Assessment Noted Time PHQ-9 Depression Total Score: 1 09/06/20 23 2:00 PM EST documented as of this encounter Care Teams Network Systems Operator Relationship Specialty Start Date End Date Shaikh Denis MD PCP - General Internal Medicine 04/05/23 10/16/23 Shaikh Denis MD [address] [place] [address] PCP - General Internal Medicine 10/17/23 05/16/24 Renny Hansen MD [address] [address] PCP - General Internal Medicine 09/19/24 Renny Hansen MD [address] [place] [address] [place] [address] PCP - Medical [facility] 09/12/2409/11 Jazmín Calvillo NP [address] [place] [address] Nurse Practitioner Family Medicine 05/17/24 09/18/24 Cindi Jenkins, GIDEON [address] [place] [address] Guard Chief Family Medicine 11/06/24 12/05/24 Lisa Ramirez LPN [address] [place] [address] [address] 12/05/24 documented as of this encounter
--- OUTSIDE RECORDS SUMMARY | 2025-04-24 13:07 | XMS_ITS | Clinical Summary ---
Author Organization [facility] Address [address] [facility] [place] [address] Care Team Providers Care Power Cutting Machine Operator Name Role Phone Renny Hansen MD Primary Care Provider [phone] Renny Hansen MD Unavailable [phone] Lisa Ramirez LPN Unavailable Allergies Active Allergy Reactions Criticality Noted Date Comments Digoxin Rash Low 10/17/2023 Nsaids 11/16/2023 Other Reaction(s): HEART ISSUES Wound Dressing Adhesive Rash Low 11/18/2023 Medications Multiple Vitamins-Minera ls (CENTRUM SILVER 50+WOMEN PO) Take 1 tablet by mouth in the morning. Active flecainide (Tambocor) 100 MG tablet Take 100 mg by mouth every 12 (twelve) hours 03/08/20 24 Active baclofen (Lioresal) 10 MG tablet Take 10 mg by mouth in the morning and 10 mg in the evening and 10 mg before bedtime. 06/21/20 24 Active HYDROcodone-henrique taminophen ([place]) 5-325 MG tablet Take 1 tablet by mouth in the morning and 1 tablet in the evening and 1 tablet before bedtime. 06/21/20 24 Active cholecalciferol (Natural Vitamin D-3) 5,000 Units tabletIndicatio ns:Vitamin D deficiency Take 1 tablet (5,000 Units) by mouth Daily 90 tablet 1 08/24/20 24 Active spironolactone (Aldactone) 50 MG tablet Take 50 mg by mouth in the morning. 09/24/19 25 Active verapamil SR (Calan SR) 180 MG ER tablet Take 360 mg by mouth in the morning. 11/12/19 25 Active penicillin v potassium (Veetid) 500 MG tablet Take 500 mg by mouth in the morning and 500 mg at noon and 500 mg in the evening and 500 mg before bedtime. Active omeprazole (PriLOSEC) [address] capsuleIndicati ons:Peptic ulcer, site unspecified, unspecified as acute or chronic, without hemorrhage or perforation,Pep tic ulcer Take 1 capsule (40 mg) by mouth Daily 100 capsule 3 01/19/20 25 Active apixaban (Eliquis) 5 MG tabletIndicatio ns:Persistent atrial fibrillation (HCC) Take 1 tablet (5 mg) by mouth in the morning and 1 tablet (5 mg) before bedtime. 180 tablet 1 02/09/20 25 025 Active rOPINIRole (Requip) 0.5 MG tabletIndicatio ns:Restless Leg Syndrome Take 1 tablet (0.5 mg) by mouth in the evening. Take with meals 30 tablet 11 02/19/20 25 026 Active Additional Information Patient not taking.Reported on 04/18/2025 saccharomyces boulardii (Florastor) 250 MG capsule Take 250 mg by mouth in the morning and 250 mg before bedtime. Active ipratropium-alb uterol (Duo-Neb) 0.5-2.5 mg/3 mL nebulizer solutionIndicat ions:Chronic obstructive pulmonary disease, unspecified COPD type (HCC) Take 3 mL by nebulization in the morning and 3 mL at noon and 3 mL in the evening and 3 mL before bedtime. 150 mL 2 04/18/20 25 Active Respiratory Therapy Supplies (Nebulizer/Tubi ng/Mouthpiece) kitIndications: Chronic obstructive pulmonary disease, unspecified COPD type (HCC) 1 each See administration instructions Use daily as needed per instructions on medication. 1 kit 04/18/20 25 Active nitrofurantoin, macrocrystal-mo nohydrate, (Macrobid) 100 MG capsuleIndicati ons:Hematuria, unspecified type Take 1 capsule (100 mg) by mouth in the morning and 1 capsule (100 mg) before bedtime. Do all this for 7 days. 14 capsule 04/24/20 25 025 Active acetaminophen (Tylenol) 500 MG tabletIndicatio ns:Axillary lymphadenopathy ,Left arm pain Take 1,000 mg by mouth every 6 (six) hours if needed for mild pain 025 Discontinu ed(Other) ipratropium-alb uterol (Duo-Neb) 0.5-2.5 mg/3 mL nebulizer solution Take 3 mL by nebulization in the morning and 3 mL at noon and 3 mL in the evening and 3 mL before bedtime. 05/25/20 24 025 Discontinu ed(Reorder ) hydrocortisone (West-Andres) 0.2 % creamIndication s:Phlebitis of left upper extremity Apply topically 2 (two) times a day 45 g 1 10/17/19 025 Discontinu ed(Therapy completed) azithromycin (Zithromax) 250 MG tabletIndicatio ns:Upper respiratory tract infection, unspecified type Take 2 tablets (500 mg) by mouth Daily for 1 day, THEN 1 tablet (250 mg) Daily for 4 days. 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 MRI ordered, awaiting approval. Will order [place] as needed as it helped with pain. [...] get device check to assess AF burden -[id number] -Continue Xarelto 20 mg daily, continue propafenone to 25 mg 3 times a day Assessment & Plan (12/29/2023 2:36 PM EDT): S/P PPM. Follows [facility] cardiology. On Xarelto for stroke px. Also uses Flecainide, Verapamil. Assessment & Plan (11/07/2023 3:16 PM EST): S/P PPM. Follows [facility] cardiology. On Xarelto for stroke px. Also uses Flecainide, Verapamil. Assessment & Plan (09/06/2023 2:46 PM EST): S/P PPM. Follows [facility] cardiology. On Xarelto for stroke px. Sinus node dysfunction 10/07/2020 Overview (09/06/2023): Last Assessment & Plan: - S/p PPM The Editorialist scientific -We will have her scheduled for [...] Encounters Date Type Department Care Team Description 04/24/2025 9:30 AM EDT Office Visit [facility] [place] [facility] [address] [place] [address] [place] [address] Shannon Robles NP Hematuria, unspecified type 04/24/2025 Bamboo flowsheet [facility] [place] [facility] [address] [place] [address] [place] [address] Shannon Robles NP 04/24/2025 Travel 04/18/2025 11:00 AM EDT Office Visit [facility] [place] [facility] [address] [place] [address] [place] [address] Eleanor Leahy PA Chronic obstructive pulmonary disease, unspecified COPD type (HCC) (Primary Dx) 04/18/2025 Bamboo flowsheet [facility] [place] [facility] [address] [place] [address] [place] [address] Eleanor Leahy PA 04/18/2025 Travel 04/17/2025 Telephone [facility] [place] [facility] [address] [place] [address] [place] [address] Renny Hansen MD 04/15/2025 Patient Outreach [facility] [address] [place] [address] Lisa Ramirez LPN 04/15/2025 Telephone [facility] [place] [facility] [address] [place] [address] [place] [address] Renny Hansen MD 04/05/2025 Patient Outreach [facility] [address] [place] [address] Lisa Ramirez EMULSION COATER 04/01/2025 Telephone [facility] [place] [facility] [address] [place] [address] [place] [address] Renny Hansen MD 03/22/2025 Refill [facility] [place] [facility] [address] [place] [address] [place] [address] Renny Hansen MD 02/21/2025 Clinisync Result Encounter NOMS External Department Unsolicited Provider, Generic External Data 02/18/2025 11:30 AM EDT Office Visit [facility] [place] [facility] [address] [address] [place] [address] Renny Hansen MD RLS (restless legs syndrome) (Primary Dx) 02/18/2025 Bamboo flowsheet [facility] [place] [facility] [address] [place] [address] [place] [address] Renny Hansen MD 02/18/2025 Travel 02/11/2025 Travel 02/08/2025 Refill [facility] [place] [facility] [address] [facility] [address] [place] [address] Renny Hansen MD Persistent atrial fibrillation (HCC) 02/06/2025 Patient Outreach [facility] [address] [place] [address] Saira Chi RN 01/28/2025 Patient Outreach [facility] [address] [place] [address] Cindi Jenkins LSW from Last 3 Months Immunizations Immunization Administration [...] How often do you attend chur or judaism services? Patient declined 11/12/2024 Do you belong [...] Recorded Patient Health Questionnaire-2 Score 0 04/24/2025 [facility] of Occupat ional Health - Occupational Stress [...] time in the past 12 m [facility], were you homeless or [...] Pulse 81 04/24/2025 9:41 AM EDT Temperature 36.9 C (98.4 F) 08/02/2024 10:51 AM EST Respiratory Rate 17 04/24/2025 9:41 AM EDT Oxygen Saturation 97% 04/24/2025 9:41 AM EDT Inhaled Oxygen Concentration - - Weight 103 kg (226 lb) 04/24/2025 9:41 AM EDT Height 144.8 cm (4' 9 ) 04/24/2025 9:41 AM EDT Body Mass Index 48.91 04/24/2025 9:41 AM EDT Plan of Treatment Upcoming Encounters Date Type Department Care Team (Late st Contact Info) Description 05/16/2025 11:00 AM EDT Office Visit [facility] [place] [facility] 112 [facility] 110 [place] [address] Renny Hansen MD 112 [facility] 110 [place] [address] Health Maintenance Due Date Last Done Comments Influenza Vaccine (#1) 2025 , 08/25/2023, 08/25/2023, Additional history exists Medicare Annual Wellness (AWV) 10/17/2025 0 10/17/2024, 09/06/2023, 09/06/2023 Pneumococcal Vaccine: 65+ Years Completed 08/20/2021, 08/04/2020, 07/05/2017 Colonoscopy Discontinued 03/07/2024, 09/12/2017 Colorectal Cancer Screening Discontinued CT Colonography Discontinued FIT-DNA Discontinued FIT Discontinued FOBT Discontinued Sigmoidoscopy Discontinued Procedures Procedure Name Priority Date/Time Associated Diagnosis Comments POCT URINALYSIS DIPSTICK Routine 04/24/2025 10:21 AM EDT Hematuria, unspecified type ALL CBC WITH AUTO DIFF Routine 02/21/2025 3:05 PM EDT ALL C REACTIVE PROTEIN Routine 02/21/2025 3:05 PM EDT ALL BASIC METABOLIC PANEL Routine 02/21/2025 3:05 PM EDT from Last 3 Months Results * (ABNORMAL) POCT Urinalysis dipstick (04/24/2025 10:21 AM EDT) Pathologist [facility] Color, UA Yellow Clarity, UA Clear Glucose, UA Negative Negative - 1999(110) ++++ mg/dL Bilirubin, UA Negative Negative - 4(70) +++ mg/dL Ketones, UA Negative Negative - 160(16) ++++ mg/dL Spec Grav, UA 1.050 1 - 1.03 Blood, UA Positive Negative - 50 Shadi/mcL pH, UA 6.0 5 - 9 Protein, UA Negative Negative - 1999(20) ++++ mg/dL Urobilinogen, UA 0.2 0.2 - 12 mg/dL Leukocytes, UA Negative Negative - 500+++ Rosette/mcL Nitrite, UA Negative Negative - Positive Urine 04/24/2025 10:2 1 AM EDT Shannon Robles LEAD MASSAGE THERAPIST POINT OF CARE TEST ENTER/LUIS EDUARDO T ORDERABLES Final Result * (ABNORMAL) ALL CBC WITH AUTO DIFF (02/21/2025 3:05 PM EDT) [facility] TB WBC 11.2(H) 4.0 - 11.0 10 3/uL TBH TB RBC 3.97(L) 4.20 - 5.40 10 6/uL TBH TBH HGB 9.7(L) 12.0 - 16.0 g/dL TBH TB HCT 31.7(L) 36.0 - 48.0 % TBH TBH MCV 79.8(L) 81.0 - 99.0 fL TBH TB MCH 24.4(L) 26.7 - 34.0 pg TBH TBH MCHC 30.6 29.9 - 35.2 g/dL TB TB RDW 16.9(H) 11.0 - 15.0 % TBH TBH PLT 357 150 - 450 10 3/uL TBH TBH MPV 8.8(L) 9.5 - 13.5 fL TBH NEUTROPHILS PERCENT AUTO 67.8 43.0 - 75.0 % TBH LYMPHOCYTES PERCENT AUTO 21.3 20.5 - 60.0 % TBH MONOCYTES PERCENT AUTO 7.6 1.7 - 12.0 % TBH TBH EO % 2.1 0.9 - 7.0 % TBH BASOPHILS PERCENT AUTO 0.8 0.2 - 2.0 % TBH IMMATURE GRANULOCYTES PCT AUTO 0.4 0.0 - 0.5 % TBH NEUTROPHILS ABSOLUTE AUTO 7.6(H) 1.4 - 6.5 10 3/uL TBH LYMPHOCYTES ABSOLUTE AUTO 2.4 1.2 - 3.8 10 3/uL TBH MONOCYTES ABSOLUTE AUTO 0.9(H) 0.3 - 0.8 10 3/uL TBH TBH EO # 0.2 0.0 - 0.7 10 3/uL TBH BASOPHILS ABSOLUTE AUTO 0.1 0.0 - 0.1 10 3/uL TBH IMMATURE GRANULOCYTES ABS AUTO 0.04(H) 0.00 - 0.03 10 3/uL TBH 02/21/2025 3:05 PM EDT 02/21/2025 3:[address] [facility] CLINISYNC - 02/21/2025 3:39 PM EDT Generic External Data Provider CLINISYNC F inal Result Performing Organization Address [facility] de Phone Number [facility] * ALL C REACTIVE PROTEIN (02/21/2025 3:05 PM EDT) [facility] C REACTIVE PROTEIN <0.50 <=0.50 mg/dL TB 02/21/2025 3:05 PM EDT 02/21/2025 3:[address] [facility] CLINISYNC - 02/21/2025 3:32 PM EDT [employer] External Data Provider CLINISYNC F inal Result Performing Organization Address [facility] de Phone Number [facility] * (ABNORMAL) ALL BASIC METABOLIC PANEL (02/21/2025 3:05 PM EDT) Pathologist [facility] SODIUM 137 136 - 145 mmol/L TBH POTASSIUM 4.3 3.5 - 5.1 mmol/L TBH CHLORIDE 100 98 - 107 mmol/L TBH CARBON DIOXIDE 27.6 21.0 - 32.0 mmol/L TBH ANION GAP 13.7 TBH GLUCOSE 100 74 - 106 mg/dL TBH BLOOD UREA NITROGEN 22.0(H) 7.0 - 18.0 mg/dL TBH CREATININE 0.78 0.55 - 1.02 mg/dL TBH TBH EGFR-AF TURKMEN >60 >=60 mL/min/1.7 3m 2 TBH TBH EGFR-NON AF TURKMEN >60 >=60 mL/min/1.7 3m 2 TBH BUN CREATININE RATIO 28.2 TBH CALCIUM 9.3 8.5 - 10.1 mg/dL TBH 02/21/2025 3:05 PM EDT 02/21/2025 3:06 PM EDT Narrative CLINISYNC - 02/21/2025 3:32 PM EDT us Generic External Data Provider CLINISYNC F inal Result [facility] Last 3 Months Insurance [employer] MEDICARE Care Teams Power Cutting Machine Operator Relationship Specialty Start Date End Date Renny Hansen MD [address] [facility] [address] [place] [address] PCP - General Internal Medicine 09/19/24 Renny Hansen MD [address] [facility] [address] [place] [address] PCP - Medical [place] 09/12/2409/11 Lisa Ramirez LPN [address] [address] 12/05/24
--- OUTSIDE RECORDS SUMMARY | 2025-04-24 13:07 | XMS_ITS | Clinical Summary ---
Author Organization [facility] Address [address] [place] [address] Care Team Providers Care Steel Worker Name Role Phone Paulette Johnson MD Primary Care Provider [phone] Scott Cruz MD Unavailable Allergies Active Allergy [...] of 2) 11/30/1997 Bone Density Screening 11/30/2012 Advance Directive Discussion 09/12/2024 Medicare Advantage Annual We llness Visit 09/12/2024 Influenza Vaccine (#1) 2025 , 07/08/2022, 08/20/2021, Additional history exists Pneumococcal Vaccine: 50+ Completed 2020, 08/04/2020, 07/05/2017 RSV Vaccine Completed 08/25/2023 Insurance [employer] MEDICARE Care Teams Steel Worker Relationship Specialty Start Date End Date Paulette Johnson MD [address] [place] [address] PCP - General 01/05/06 Scott Cruz MD [address] [address] Referring Infectious Diseases 05/07/24
--- OUTSIDE RECORDS SUMMARY | 2025-04-24 13:07 | XMS_ITS | Encounter Summary ---
Author Organization [facility] Address [address] [place] [address] Care Team Providers Care Second Hand Name Role Phone Shaikh BEREKET Denis Primary Care Provider [phone] Shaikh BEREKET Denis Primary Care Provider [phone] Jazmín Calvillo REGISTERED PHLEBOTOMIST PART TIME Unavailable [phone] Renny Hansen MD Primary Care Provider [phone] Renny Hansen MD Unavailable Cindi Jenkins PRESIDENT OF THE [place] Unavailable [phone] Lisa Ramirez ROCKET ENGINE COMPONENT MECHANIC Unavailable Reason for Visit * Reason Comments Med Refill Encounter Details Date Type Department Care Team (Late st Contact Info) Description 10/13/2023 Refill [facility] [address] [place] [address] Shaikh Denis MD [address] [place] [address] Peptic ulcer, site unspecified, unspecified [...] How often do you attend adventist or islam serv ices? Patient declined 08/30/2023 [...] Recorded Patient Health Questionnaire-2 Score 0 09/06/2023 [facility] of Occupat ional Health - Occupational Stress [...] 11:00 AM EDT Office Visit [facility] [place] [facility] [address] [facility] [address] [place] [address] Renny Hansen MD [address] [facility] 110 [place] [address] documented as of this encounter Visit Diagnoses [...] documented as of this encounter Care Teams Second Hand Relationship Specialty Start Date End Date Shaikh Denis MD PCP - General Internal Medicine 04/05/23 10/16/23 Shaikh Denis MD [address] [place] [address] PCP - General Internal Medicine 10/17/23 05/16/24 Renny Hansen MD [address] [facility] [address] [place] [address] PCP - General Internal Medicine 09/19/24 Renny Hansen MD [address] [facility] [address] [place] [address] PCP - Medical [facility] 09/12/2409/11 Jazmín Calvillo NP [address] [place] [address] Nurse Practitioner Family Medicine 05/17/24 09/18/24 Cindi Jenkins, GIDEON [address] [facility] [place] [address] Internal [facility] 11/06/24 12/05/24 Lisa Ramirez LPN [address] [address] 12/05/24 documented as of this encounter
--- OUTSIDE RECORDS SUMMARY | 2025-04-24 13:07 | XMS_ITS | Encounter Summary ---
Author Organization [facility] Address [address] [facility] [place] [address] Care Team Providers Care Spring Encaser Name Role Phone Shaikh BEREKET Denis Primary Care Provider [phone] Jazmín Calvillo BOW MAKER MACHINE TENDER Unavailable [phone] Renny Hansen MD Primary Care Provider [phone] Renny Hansen MD Unavailable [phone] Cindi Jenkins ROLL SLICING MACHINE TENDER Unavailable [phone] Lisa Ramirez SENIOR OFFICE ASSISTANT Unavailable Encounter Details Date Type Department Care [...] week 08/30/2023 How often do you attend yazidism or sabianism serv ices? Patient declined 08/30/2023 Do you belong to any clubs o r organizations such as yazidism groups, unions, fraNivela or athletic groups, or school groups? Yes [...] 0 12/29/2023 [facility] of Occupat ional [facility] - Occupational Stress Questionnaire Answer Date [...] EDT Office Visit [facility] [place] Zendejas 112 [facility] 110 [place] [address] Renny Hansen MD 112 [facility] 110 [place] [address] documented as of this encounter Procedures Procedure Name Priority Date/Time Associated Diagnosis Comments XR SHOULDER 2+ VIEWS LEFT 02/22/2024 7:27 AM EDT documented in this encounter Results * XR shoulder 2+ views left (02/22/2024 7:27 AM EDT) Anatomical Region Laterality Modality Upper Extremities, Shoulder Left Radi ographic Imaging 02/22/2024 7:27 AM EDT Narrative 02/22/2024 7:30 AM EDT The [address] [address] XRay Report Signed Patient: MAXIMUS STARKS MR#: [id number] : 1945 Acct:[id number] Age/Sex: 78 / F ADM Date: 02/21/24 Loc: RAD Attending Dr: Mabel De León NP Ordering Physician: Mabel De León NP Date of Service: 02/21/24 Procedure(s): XR shoulder LT min 2V Accession Number(s): [id number] cc: Shaikh Magui Denis; Mabel De León NP The [address] [address] Patient Name: MAXIMUS STARKS MRN: [id number] date: 1945 Sex: F Assigned Patient Location: [facility] Current Patient Location: Accession/Order Number: [id number] Exam Date: 02/21/2024 17:48 Report Date: 02/22/2024 [...] Dictated By: Hong Alston M.D. Signed By: 02/22/2430 DD/ TD/TT: Barrel Turner: Procedure Note Radiology, Radiologist, MD - 02/22/[address] [address] XRay Report Signed Patient: MAXIUMS STARKS TMR#: [id number] : 8Acct:[id number] Age/Sex: 78 / FADM Date: 02/21/24 Loc: RAD Attending Dr: Mabel Urbano BOW MAKER MACHINE TENDER Ordering Physician: Mabel De León NP Date of Service: 02/21/24 Procedure(s): XR shoulder LT min 2V Accession Number(s): [id number] cc: Shaikh Magui Denis; Mabel De León NP [address] [address] Patient Name: MAXIMUS STARKS MRN: [facility]:[id number] date: 1945 Sex: F Assigned Patient Location: [facility] Current Patient Location: Accession/Order Number: [id number] Exam Date: 02/21/2024 17:48 Report Date: 02/22/2024 [...] Alston M.D. Signed By:02/22/24729 DD/ 6 TD/TT: Barrel Turner: Generic External Data Provider IMG XR PROCEDURES Final Result documented in this encounter Visit Diagnoses Not on filedocumented in this encounter Additional Health Concerns Assessment Noted Time PHQ-9 Depression Total Score: 1 09/06/20 23 2:00 PM EST documented as of this encounter Care Teams Spring Encaser Relationship Specialty Start Date End Date Shaikh Denis MD [address] [place] [address] PCP - General Internal Medicine 10/17/23 05/16/24 Renny Hansen MD [address] [address] [place] [address] PCP - General Internal Medicine 09/19/24 Renny Hansen MD [address] [address] PCP - Medical [place] 09/12/2409/11 Jazmín Calvillo NP [address] [place] [address] Nurse Practitioner Family Medicine 05/17/24 09/18/24 Cindi Jenkins, GIDEON [address] [place], [place] [address] Sustainable Communities Designer Family Medicine 11/06/24 12/05/24 Lisa Ramirez LPN [address] [address] 12/05/24 documented as of this encounter
--- OUTSIDE RECORDS SUMMARY | 2025-04-24 13:07 | XMS_ITS | Encounter Summary ---
Author Organization [facility] Address [address] [place] [address] Care Team Providers Care White Kid Buffer Name Role Phone Shaikh BEREKET Denis Primary Care Provider [phone] Jazmín Calvillo SHIPWRIGHT Unavailable [phone] Renny Hansen MD Primary Care Provider [phone] Renny Hansen MD Unavailable [phone] Cindi Jenkins RESEARCH FELLOW Unavailable [phone] Lisa Ramirez MELTER SUPERVISOR Unavailable Encounter Details Date Type Department Care Team (Late st Contact Info) Description 03/02/2024 Clinisync Result Encounter NOMS External Department Unsolicited Shaikh Denis MD [address] [place] [address] Social History Tobacco Use Types Packs/Day Years [...] How often do you attend hindu or oriental orthodox serv ices? Patient declined [...] Recorded Patient Health Questionnaire-2 Score 0 02/27/2024 [employer] of Occupat ional Health - [...] EDT Office Visit [facility] [place] Zendejas 112 [facility] 110 [place] [address] Renny Hansen MD 112 [facility] 110 [place] [address] documented as of this encounter Procedures Procedure Name Priority Date/Time Associated Diagnosis Comments CA ECHO DOPPLER COMPLETE 03/02/2024 9:05 AM EDT documented in this encounter Results * CA ECHO DOPPLER COMPLETE (03/02/2024 9:05 AM EDT) Anatomical Region Laterality Modality Other 03/02/2024 9:05 AM EDT Narrative 03/02/2024 9:06 AM EDT The [address] [address] Cardiology Report Signed Patient: MAXIMUS STARKS MR#: [id number] : 1945 Acct:[id number] Age/Sex: 78 / F ADM Date: 02/29/24 Loc: CARD Attending Dr: Shaikh Cira Kilgore Ordering Physician: Shaikh Magui Denis Date of Service: 02/29/24 Procedure(s): CA echo doppler complete Accession Number(s): [id number] cc: Shaikh Magui Denis Patient Name: MAXIMUS STARKS MR#: [id number] : 1945 Exam Date: 02/29/2024 Ordering Doctor: [...] SALAZAR Signed By: 03/02/24905 DD/ 4 TD/TT: Sewer Cleaner: Procedure Note Radiology, Radiologist, MD - 03/02/2024 [place] [address] Cardiology Report Signed Patient: MAXIMUS STARKS TMR#: [id number] : 8Acct:[id number] Age/Sex: 78 / FADM Date: 02/29/24 Loc: CARD Attending Dr: Shaikh Cira Kilgore Ordering Physician: Shaikh Magui Denis Date of Service: 02/29/24 Procedure(s): CA echo doppler complete Accession Number(s): [id number] cc: Shaikh aMgui Denis Patient Name: MAXIMUS STARKS MR#: [id number] : 1945 Exam Date: 02/29/2024 Ordering Doctor: [...] SAKINA SALAZAR Signed By:03/02/24905 DD/ 4 TD/TT: Sewer Cleaner: us Shaikh Cira [facility] Final Result documented in this encounter Visit Diagnoses Not on filedocumented in this encounter Additional Health Concerns Assessment Noted Time PHQ-9 Depression Total Score: 1 09/06/20 23 2:00 PM EST documented as of this encounter Care Teams White Kid Buffer Relationship Specialty Start Date End Date Shaikh Denis MD [address] [place] [address] PCP - General Internal Medicine 10/17/23 05/16/24 Renny Hansen MD [address] [facility] 110 [place] [address] PCP - General Internal Medicine 09/19/24 Renny Hansen MD [address] [facility] 110 [place] [address] PCP - Medical [facility] 09/12/2409/11 Jazmín Calvillo NP [address] [place] [address] Nurse Practitioner Family Medicine 05/17/24 09/18/24 Cindi Jenkins, GIDEON [address] [place] [address] Wireless Construction Manager Family Medicine 11/06/24 12/05/24 Lisa Ramirez LPN [address] [facility] 110 [place] [address] 12/05/24 documented as of this encounter
--- OUTSIDE RECORDS SUMMARY | 2025-04-24 13:07 | XMS_ITS | Encounter Summary ---
Author Organization [facility] Address [address] [place] [address] Care Team Providers Care Automatic Profile Sander Operator Name Role Phone Renny Hansen MD Primary Care Provider [phone] Renny Hansen MD Unavailable [phone] Lisa Ramirez LPN Unavailable Encounter Details Date Type Department Care Team (Late st Contact Info) Description 01/03/2025 External Result Encounter NOMS External Department Unsolicited Juan Monahan, DO [address] [place] [address] Social History Tobacco Use Types Packs/Day Years [...] How often do you attend chur or druze services? Patient declined 11/12/2024 Do you belong to any clubs o r organizations such as protestant groups, unions, fraternal or athletic groups, or [...] Recorded Patient Health Questionnaire-2 Score 0 10/17/2024 [facility] of Occupat ional Health - Occupational Stress [...] any time in the past 12 m [facility], were you homeless or living in a snf (including now)? No 11/12/2024 Comments Unknown Sex [...] EDT Office Visit [facility] [place] Zendejas [address] [facility] 110 [place] [address] Renny Hansen MD [address] [facility] 110 [place] [address] documented as of this encounter Procedures Procedure [...] Dimitrios Blanco M.D.01/03/2025 3:42 PM Dictation Location: [facility] Tech: Ghazal Wilson Transcribed By: STAR 01/03/25 1542 Dictated By: Dimitrios Blanco MD 01/03/25 1532 Signed By: <Electronically signed by Dimitrios Blanco MD in OV> 01/03/25 1542 Narrative 01/03/2025 3:44 PM EDT [facility] [place] [address] Ultrasound Report Signed Patient: Breann Starks MR#: [id number] : 1945 Acct:[id number] Age/Sex: 79 / F ADM Date: 01/03/25 Loc: Room: Type: [facility] RCR Attending Dr: Katharina Toledo APRN [...] axilla Procedure Note Radiology, Radiologist, - 01/03/2025 [facility] Main [place] [address] [place] [address] Ultrasound Report Signed Patient: Breann Starks TMR#: [id number] : 8Acct:[id number] Age/Sex: 79 / FADM Date: 01/03/25 Loc: XT Room:Type: [facility] Attending Dr: Katharina Toledo APRN Ordering Provider: [...] Dimitrios Blanco M.D.01/03/2025 3:42 PM Dictation Location: [facility] Tech: Ghazal Wilson Transcribed By: STAR [...] documented as of this encounter Care Teams Automatic Profile Sander Operator Relationship Specialty Start Date End Date Renny Hansen MD [address] [place] [address] [place] [address] PCP - General Internal Medicine 09/19/24 Renny Hansen MD [address] [place] [address] [place] [address] PCP - Medical [facility] 09/12/2409/11 Lisa Ramirez LPN [address] [place] [address] [place] [address] 12/05/24 documented as of this encounter
--- OUTSIDE RECORDS SUMMARY | 2025-04-24 13:07 | XMS_ITS | Encounter Summary ---
Author Organization [facility] Address [address] [facility] [place] [address] Care Team Providers Care Controlled Area Checker Name Role Phone Renny Hansen MD Primary Care Provider [phone] Renny Hansen MD Unavailable [phone] Lisa Ramirez LPN Unavailable Encounter Details Date Type Department Care Team (Late st Contact Info) Description 01/04/2025 Abstract [facility] [place] [facility] [address] [facility] 110 [place] [address] Renny Hansen MD 112 [facility] 110 [place] [address] Social History Tobacco Use Types Packs/Day Years [...] How often do you attend chur or alevism services? Patient declined 11/12/2024 Do you belong [...] Recorded Patient Health Questionnaire-2 Score 0 10/17/2024 [facility] of Occupat ional Health - [...] any time in the past 12 m [facility], were you homeless or living in a long-term (including now)? No 11/12/2024 Comments Unknown Sex [...] Office Visit [facility]S [place] Zendejas [address] [place] [address] [place] [address] Renny Hansen MD [address] [place] [address] [place] [address] documented as of this encounter Visit Diagnoses Not on filedocumented in this encounter Additional Health Concerns Assessment Noted Time PHQ-9 Depression Total Score: 1 09/06/20 23 2:00 PM EST documented as of this encounter Care Teams Controlled Area Checker Relationship Specialty Start Date End Date Renny Hansen MD [address] [facility] 110 [place] [address] PCP - General Internal Medicine 09/19/24 Renny Hansen MD [address] [facility] 110 [place] [address] PCP - Medical [facility] 09/12/2409/11 Lisa Ramirez LPN [address] [address] 12/05/24 documented as of this encounter
--- OUTSIDE RECORDS SUMMARY | 2025-04-24 13:08 | XMS_ITS | Encounter Summary ---
Author Organization [facility] Address [address] [place] [address] Care Team Providers Care News Operations Manager Name Role Phone Renny Hansen MD Primary Care Provider eRnny Hansen MD Unavailable [phone] Cindi Jenkins DIRECTOR CPG Unavailable [phone] Lisa Ramirez INCINERATOR PLANT LABORER Unavailable Encounter Details Date Type Department Care Team (Late st Contact Info) Description 10/02/2024 External Result Encounter NOMS External Department Unsolicited Katharina Toledo, COMMERCIAL PRINT SALESMAN [address] [place] [address] Social History Tobacco Use Types Packs/Day Years [...] week 08/30/2023 How often do you attend taoism or buddhist serv ices? Patient declined 08/30/2023 Do you belong to any clubs o r organizations such as taoism groups, unions, fraternal [...] 05/31/2024 [facility] of Occupat ional Health - Occupational [...] EDT Office Visit [facility] [place] Zendejas 112 [facility] 110 [place] [address] Renny Hansen MD 112 [facility] 110 [place] [address] documented as of this encounter Procedures Procedure [...] Etienne Rhodes M.D.10/02/2024 4:14 PM Dictation Location: [facility]23 Transcribed By: [facility] 10/02/241613 Dictated By: Etienne Rhodes DO 10/02/24 161 Signed By: <Electronically signed by Etienne Rhodes DO in OV> 10/02/24 1614 Narrative 10/02/2024 4:17 PM [facility] [place] [address] CT Scan Report Signed Patient: Breann Starks MR#: [id number] : 1945 Acct:[id number] Age/Sex: 78 / F ADM Date: 10/02/24 Loc: XT Room: Type: REG RCR Attending Dr: Katharina Toledo MEDIA PRODUCTION OPERATOR Copies to: Katharina Toledo APRN Ordering Provider: [...] Procedure Note Radiology, Radiologist, MD - 10/02/2024 [facility] Main [place] [id number] CT Scan Report Signed Patient: Breann Starks TMR#: [id number] : 8Acct:[id number] Age/Sex: 78 / FADM Date: 10/02/24 Loc: XT Room:Type: REG RCR Attending Dr: Katharina Toledo MEDIA PRODUCTION OPERATOR Copies to: Katharina Toledo APRN Ordering Provider: [...] Etienne Rhodes M.D.10/02/2024 4:14 PM Dictation Location: [place] [address] Transcribed By: [facility] 10/02/24 1614 Dictated By: Etienne Rhodes DO 10/02/24 1610 Signed By: <Electronically signed by Etienne Rhodes DO in OV> 10/02/24 1614 us Katharina Toledo COMMERCIAL PRINT SALESMAN IMG CT PROCEDURES Final Resul t documented in this encounter Visit Diagnoses Not on filedocumented in this encounter Additional Health Concerns Assessment Noted Time PHQ-9 Depression Total Score: 1 09/06/20 23 2:00 PM EST documented as of this encounter Care Teams News Operations Manager Relationship Specialty Start Date End Date Renny Hansen MD [address] [facility] 110 [place] [address] PCP - General Internal Medicine 09/19/24 Renny Hansen MD [address] [facility] 110 [place] [address] PCP - Medical [place] 09/12/2409/11 Cindi Jenkins, GIDEON [address] [place] [address] Circular Sawyer Helper Family Medicine 11/06/24 12/05/24 Lisa Ramirez LPN 112 [facility] 110 [place] [address] 12/05/24 documented as of this encounter
--- OUTSIDE RECORDS SUMMARY | 2025-04-24 13:08 | XMS_ITS | Encounter Summary ---
Author Organization [facility] Address [address] [facility] [place] [address] Care Team Providers Care Risk Developer Name Role Phone Jazmín Calvillo CHAIR TRIMMER Unavailable [phone] Renny Hansen MD Primary Care Provider [phone] Renny Hansen MD Unavailable [phone] Cindi Jenkins ACUTE SPECIALIST Unavailable [phone] Lisa Ramirez FULFILLMENT COORDINATOR Unavailable Reason for Referral * Consultation (Routine) - Closed Specialty Diagnoses / Procedures Referred By Millie egan Referred To Contact Neurology Diagnoses Neck pain on left side Procedures GA OFFICE/OUTPATIENT NEW HIGH MDM 60 MINUTES Renny Hansen MD 112 [facility] 110 [place] [address] Phone: tel: fax: Wil Lord MD Phone: tel: fax: Referral ID Status Reason Start Date Expiration Date V isits Requested Visits Authorized [id number] Closed Specialty Services Required 09/13/2024 03/12/2025 1 1 Encounter Details Date Type Department Care Team (Late st Contact Info) Description 09/13/2024 Abstract [facility] [place] [facility] [address] [facility] 110 [place] [address] Renny Hansen MD [address] [facility] 110 [place], [place] [address] Neck pain on left side Social History [...] week 08/30/2023 How often do you attend nondenominational or lutheran serv ices? Patient declined 08/30/2023 Do you belong to any clubs o r organizations such as nondenominational groups, unions, fraternal or athletic groups, or [...] Recorded Patient Health Questionnaire-2 Score 0 05/31/2024 [facility] of Occupat ional Health - Occupational Stress [...] 11:00 AM EDT Office Visit [facility] [place] [facility] [address] [place] 110 [place] [address] Renny Hansen MD [address] [facility] 110 [place] [address] Scheduled Referrals Name Type Priority Associated Diagnoses [...] documented as of this encounter Care Teams Risk Developer Relationship Specialty Start Date End Date Renny Hansen MD [address] [place] [facility] 110 [place] [address] PCP - General Internal Medicine 09/19/24 Renny Hansen MD 112 [facility] 110 [place] [address] PCP - Medical [place] 09/12/2409/11 Jazmín Calvillo NP Nurse Practitioner Family Medicine 05/17/24 09/18/24 Cindi Jenkins, GIDEON [address] [place] [address] Product Engineer Family Medicine 11/06/24 12/05/24 Lisa Ramirez LPN [address] [facility] 110 [place] [address] 12/05/24 documented as of this encounter
--- OUTSIDE RECORDS SUMMARY | 2025-04-24 13:08 | XMS_ITS | Encounter Summary ---
Author Organization [facility] Address [address] [facility] [place] [address] Care Team Providers Care Assembler Production Line Name Role Phone Renny Hansen MD Primary Care Provider [phone] Renny Hansen MD Unavailable [phone] Analia Ramirez LPN Unavailable Encounter Details Date Type Department Care Team (Late st Contact Info) Description 04/15/2025 Telephone [facility] [place] [facility] [address] [facility] 110 [place] [address] Renny Hansen MD 112 [facility] 110 [place] [address] Social History Tobacco Use Types Packs/Day Years [...] How often do you attend chur or scientology services? Patient declined 11/12/2024 Do you belong to any clubs o r organizations such as mandaen groups, unions, fraternal or athletic groups, or [...] Recorded Patient Health Questionnaire-2 Score 0 04/18/2025 [facility] Occupat ional Health - Occupational [...] as of this encounter Progress Notes * Analia Ramirez LPN - 04/17/2025 10:35 AM EDT Nebulizer order faxed to [facility]. * Analia Ramirez LPN - 04/15/2025 4:14 PM EDT Pt calls and informs sign writer hand that her nebulizer machine is no longer working. States she called the company she got it from and they told her she needs a new script to have this repaired or get a new one. Pt states that Dr. Johnson is the one who prescribed this years ago but he has since retired. Ptwould like to know if PCP here will prescribe this for her because it helps when she needs it. She shares she can't take inhalers and has tried a few over the years but they hurt her. I let pt know Iwmarichuy send a message to Dr. Hansen of her request and get back with her. She states if he does give the prescription. She needs this sent to [facility] . documented in this encounter Miscellaneous Notes * Addendum Note - Analia Ramirez LPN - 04/17/2025 10:32 AM EDTAddended by: ANALIA RAMIREZ on: 04/17/2025 10:32 AM Modules accepted: Orders * Addendum Note - Analia Ramirez LPN - 04/16/2025 3:53 PM EDTAddended by: ANALIA RAMIREZ on: 04/16/2025 03:53 PM Modules accepted: Orders * Telephone Encounter - Saira Niño MA - 04/15/2025 1:42 PM EDT Yes, this is Mansoor Chamorro W[employer] My birthday, [phone] would like for you to call me back. I want to talk to somebody I need a prescription for biler that I have had for years and it is stopped working and I would like to get a new 1. So call me back at [phone], thank you. Pt is needing a new nebulizer I believe documented in this encounter Plan of Treatment Upcoming Encounters Date Type Department Care Team (Late st Contact Info) Description 05/16/2025 11:00 AM EDT Office Visit [facility] [place] [facility] [address] [facility] 110 [place] [address] Renny Hansen MD [address] [facility] 110 [place] [address] documented as of this encounter Visit Diagnoses Diagnosis Chronic obstructive pulmonary disease, unspecified COPD type (HCC) documented in this encounter Additional Health Concerns Assessment Noted Time PHQ-9 Depression Total Score: 1 09/06/20 23 2:00 PM EST documented as of this encounter Care Teams Assembler Production Line Relationship Specialty Start Date End Date Renny Hansen MD [address] [facility] 110 [place] [address] PCP - General Internal Medicine 09/19/24 Renny Hansen MD [address] [facility] 110 [place] [address] PCP - Medical [facility] 09/12/2409/11 Analia Ramirez LPN [address] [facility] [address] [place] [address] 12/05/24 documented as of this encounter
--- OUTSIDE RECORDS SUMMARY | 2025-04-24 13:08 | XMS_ITS | Clinical Summary ---
Author Organization [facility] Address [address] [place] [address] Care Team Providers Care Outpatient Coordinator Name Role Phone Renny Hansen MD Primary Care Provider [phone] Balta Cardenas DO Unavailable [phone] Allergies No known active allergies Medications cholecalciferol (Vitamin D-3) 125 MCG (5000 UT) capsule Take 1 tablet by mouth in the morning. Active spironolactone (Aldactone) 25 mg tabletIndications :Edema, unspecified TAKE 1 TABLET BY MOUTH EVERY DAY 90 tablet 3 3 Active Eliquis 5 mg tablet Take 5 mg by mouth every 12 (twelve) hours. 3 Active furosemide (Lasix) 40 mg tabletIndications :Benign hypertensive heart disease with heart failure (CMS/HCC) Take 1 tablet (40 mg) by mouth in the morning and at bedtime. 180 tablet 3 4 Active baclofen (Lioresal) 10 mg tablet Take 1 tablet by mouth every 6 (six) hours during the day. 4 Active omeprazole (PriLOSEC) [address] capsule Take 1 capsule by mouth in the morning. 4 Active flecainide (Tambocor) 100 mg tabletIndications :Paroxysmal atrial fibrillation (CMS/HCC) Take 1 tablet (100 mg) by mouth Twice daily at 6am and 6pm. 180 tablet 3 5 Active spironolactone (Aldactone) 50 mg tabletIndications :Chronic diastolic heart failure (CMS/HCC) Take 1 tablet (50 mg) by mouth in the morning. 90 tablet 3 5 12/29/19 26 Active verapamil ER (Veralan) 180 mg 24 hr capsuleIndication s:Essential hypertension Take 2 capsules (360 mg) by mouth once daily as directed. Do not crush or chew. 180 capsule 3 5 Active penicillin v potassium (Veetid) 500 mg tabletIndications :Pain in joint of left shoulder Take 1 tablet (500 mg) by mouth three times daily. 270 tablet 5 05/21/20 25 Active penicillin v potassium (Veetid) 500 mg tabletIndications :Pain in joint of left shoulder Take 1 tablet (500 mg) by mouth three times daily. 240 tablet 1 5 05/21/20 25 Active Active Problems Problem Noted Date Diagnosed Date [...] get device check to assess AF burden -[id number] 3 -Continue Xarelto 20 mg daily, continue propafenone to 25 mg 3 times a day Sinus node dysfunction 10/07/2020 Assessment & Plan (11/18/2022 10:55 AM EST): - S/p PPM [place] scientific -We will have her scheduled for [...] Chronic obstructive lung disease 01/12/2012 Atherosclerosis of [place] co ronary artery of [place] heart without angina pectoris 01/12/2012 Assessment [...] Team Description 02/20/2025 11:00 AM EDT Follow-Up 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 [address] [place] [address] Encounter for implantable defibrillator reprogramming or check from Last 3 Months Immunizations Immunization Administration [...] Info) Description 05/15/2025 11:00 AM EDT Follow-Up [facility] Infectious Disease [address] [place] [address] Ortega Hines MD [address] [facility] [address] Health Maintenance Due Date Last Done Comments Medicare Annual Wellness (AWV) 1945 Adult Tetanus 11/30/1969 Zoster Vaccines (1 of 2) 11/30/1997 COVID-19 Vaccine ( season) 2024 11/18/2020, 11/18/2020, 10/20/2020, Additional history exists Influenza Vaccine (#1) 2025 , 08/25/2023, 07/08/2022, Additional history exists Depression Screening 02/20/2026 02/20/2025 Fall Risk Screening 02/20/2026 02/20/2025 Pneumococcal Vaccine: 50+ Years Completed 08/20/2021, 08/04/2020, 07/05/2017 Mammogram Discontinued 10/16/2024 HIB Vaccines Aged Out [...] Date/Time Associated Diagnosis Comments CARDIAC DEVICE CHECK CHECK - REMOTE Routine 02/22/2025 12:42 PM EDT Adjustment and management of cardiac pacemaker CARDIAC DEVICE CHECK - REMOTE - PACEMAKER Routine 02/13/2025 12:00 AM EDT CARDIAC DEVICE CHECK - IN CLINIC - PACEMAKER DUAL CHAMBER W/ PROG Routine 01/23/2025 1:08 PM EDT Encounter for implantable defibrillator reprogramming or check from Last 3 Months Results * CARDIAC DEVICE CHECK - REMOTE - PACEMAKER (02/22/2025 12:42 PM EDT) Dmitriy Mahan MD CV IMPLANTABLE CARDIAC DEVICE W[place] OCEDURES Final Result CPACS * Cardiac device check - Remote pacemaker (02/13/2025 12:00 AM EDT) Anatomical Region Laterality Modality Other 02/13/2025 Dmitriy Mahan MD CV IMPLANTABLE CARDIAC DEVICE [place] OCEDURES Final Result * CARDIAC DEVICE CHECK - IN CLINIC [...] attached note Dmitriy Mahan MD CV IMPLANTABLE CARDIAC DEVICE [place] OCEDURES Final Result from Last 3 Months Insurance [employer] MEDICARE Care Teams Outpatient Coordinator Relationship Specialty Start Date End Date Renny Hansen MD [address] [facility] 110 [place] [address] PCP - General Internal Medicine 07/18/24 Balta Cardenas DO [address] [place] [address] Referring Physician 11/15/24
--- OUTSIDE RECORDS SUMMARY | 2025-04-24 13:08 | XMS_ITS | Encounter Summary ---
Author Organization [facility] Address [address] [facility] [place] [address] Care Team Providers Care Gantry Rigger Name Role Phone Renny Hansen MD Primary Care Provider [phone] Renny Hansen MD Unavailable [phone] Cindi Jenkins RENDERING EQUIPMENT TENDER Unavailable [phone] Lisa Ramirez SERVICE CENTER TECHNICIAN Unavailable Encounter Details Date Type Department Care Team (Late st Contact Info) Description 10/03/2024 Orders Only [facility] [place] [facility] [address] [place] [address] [place] [address] Carlene Yan LPN [address] [place] [address] Nausea Social History Tobacco Use Types Packs/Day [...] week 08/30/2023 How often do you attend presybeterian or pentecostal serv ices? Patient declined 08/30/2023 Do you belong to any clubs o r organizations such as presybeterian groups, unions, fraternal or athletic groups, or school groups? Yes 08/30/2023 Attends Club or Organization Meetings Not on frna e 08/30/2023 Are you , , di [...] Recorded Patient Health Questionnaire-2 Score 0 05/31/2024 [facility] of Occupat ional Health - Occupational [...] Visit [facility] [place] [facility] [address] [facility] [address] [place] [address] Renny Hansen MD [address] [facility] 110 [place] [address] documented as of this encounter Visit Diagnoses Diagnosis Nausea Nausea alone documented in this encounter Additional Health Concerns Assessment Noted Time PHQ-9 Depression Total Score: 1 09/06/20 23 2:00 PM EST documented as of this encounter Care Teams Gantry Rigger Relationship Specialty Start Date End Date Renny Hansen MD [address] [facility] [address] [place] [address] PCP - General Internal Medicine 09/19/24 Renny Hansen MD [address] [facility] 110 [place] [address] PCP - Medical [place] 09/12/2409/11 Cindi Jenkins, RENDERING EQUIPMENT TENDER [address] [place] [address] Sales Operations Manager Family Medicine 11/06/24 12/05/24 Lisa Ramirez LPN 112 [facility] 110 [place] [address] 12/05/24 documented as of this encounter
--- OUTSIDE RECORDS SUMMARY | 2025-04-24 13:08 | XMS_ITS | Encounter Summary ---
Author Organization [facility] Address [address] [facility] [place] [address] Care Team Providers Care Senior Vice President And Chief Information Officer Name Role Phone Renny Hansen MD Primary Care Provider [phone] Renny Hansen MD Unavailable [phone] GregoryCindi GRANTS ASSISTANT Unavailable [phone] Lisa Ramirez BRAND DESIGNER Unavailable Encounter Details Date Type Department Care Team (Late st Contact Info) Description 09/21/2024 Abstract [facility] [place] [facility] 112 [facility] 110 [place] [address] Renny Hansen MD 112 [facility] 110 [place] [address] Social History Tobacco Use Types Packs/Day Years [...] week 08/30/2023 How often do you attend amish or hinduism serv ices? Patient declined 08/30/2023 Do you belong to any clubs o r organizations such as amish groups, unions, fraPretty in my Pocket (PRIMP) or athletic groups, or school groups? Yes [...] 0 05/31/2024 [facility] - Occupational Stress Questionnaire Answer [...] Visit [facility] [place] [address] [facility] [address] [place] [address] Renny Hansen MD [address] [facility] 110 [place] [address] documented as of this encounter Visit Diagnoses Not on filedocumented in this encounter Additional Health Concerns Assessment Noted Time PHQ-9 Depression Total Score: 1 09/06/20 23 2:00 PM EST documented as of this encounter Care Teams Senior Vice President And Chief Information Officer Relationship Specialty Start Date End Date Renny Hansen MD [address] [facility] 110 [place] [address] PCP - General Internal Medicine 09/19/24 Renny Hansen MD [address] [facility] [address] [place] [address] PCP - Medical [place] 09/12/2409/11 Cindi Jenkins, GIDEON [address] [place] [address] Principle Industrial Hygienist Family Medicine 11/06/24 12/05/24 Lisa Ramirez LPN 112 [facility] 110 [place] [address] 12/05/24 documented as of this encounter
--- OUTSIDE RECORDS SUMMARY | 2025-04-24 13:08 | XMS_ITS | Encounter Summary ---
Author Organization [facility] Address [address] [facility] [place] [address] Care Team Providers Care Materials Handling Equipment Operator Name Role Phone Renny Hansen MD Primary Care Provider [phone] Renny Hansen MD Unavailable [phone] Lisa Ramirez LPN Unavailable Encounter Details Date Type Department Care Team (Late st Contact Info) Description 04/24/2025 Bamboo flowsheet [facility] [place] [facility] [address] [facility] 110 [place] [address] Shannon Robles, PIG MACHINE CRANE OPERATOR 112 [facility] 110 [place], [place] [address] Social History Tobacco Use Types Packs/Day Years [...] often do you attend chur ch or uatsdin services? Patient declined 11/12/2024 Do you belong [...] Recorded Patient Health Questionnaire-2 Score 0 04/24/2025 [facility] [place] of Occupat ional Health - Occupational Stress [...] place to sleep or slept in a fpc (including now)? Patient refused 08/30/2023 Housing Stability [...] any time in the past 12 m [facility], were you homeless or living in a fpc (including now)? No 11/12/2024 Comments Unknown Sex [...] Visit [facility] [place] [facility] [address] [facility] [address] [place] [address] Renny Hansen MD 112 [facility] 110 [place] [address] documented as of this encounter Visit Diagnoses Not on filedocumented in this encounter Additional Health Concerns Assessment Noted Time PHQ-9 Depression Total Score: 1 09/06/20 23 2:00 PM EST documented as of this encounter Care Teams Materials Handling Equipment Operator Relationship Specialty Start Date End Date Renny Hansen MD [address] [place] [facility] 110 [place] [address] PCP - General Internal Medicine 09/19/24 Renny Hansen MD [address] [facility] 110 [place] [address] PCP - Medical [facility] 09/12/2409/11 Lisa Ramirez LPN [address] [facility] 110 [place] [address] 12/05/24 documented as of this encounter
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
--- OUTSIDE RECORDS SUMMARY | 2025-04-24 13:08 | XMS_ITS | Encounter Summary ---
Author Organization [facility] Address [address] [place] [address] Care Team Providers Care Income Tax Preparer Name Role Phone Shaikh BEREKET Denis Primary Care Provider [phone] Jazmín Calvillo HIGH WORKER Unavailable [phone] Renny Hansen MD Primary Care Provider [phone] Renny Hansen MD Unavailable [phone] Cindi Jenkins STONE SETTER METAL OPTICAL FRAMES Unavailable [phone] Lisa Ramirez INSTRUCTOR BUSINESS EDUCATION Unavailable Encounter Details Date Type Department Care Team (Late st Contact Info) Description 11/10/2023 [facility] [address] [place] [address] Shaikh Denis MD [address] [place] [address] Social History Tobacco Use Types Packs/Day Years [...] How often do you attend amish or quaker serv ices? Patient declined 08/30/2023 Do you belong to any clubs o r organizations such as amish groups, unions, fraEnvisage Technologies or athletic groups, or school groups? Yes [...] Patient Health Questionnaire-2 Score 0 11/07/2023 [facility] of Occupat ional Health [...] Office Visit [facility] [place] [facility] [address] [facility] 110 [place] [address] Renny Hansen MD [address] [facility] 110 [place] [address] documented as of this encounter Visit Diagnoses Not on filedocumented in this encounter Additional Health Concerns Assessment Noted Time PHQ-9 Depression Total Score: 1 09/06/20 23 2:00 PM EST documented as of this encounter Care Teams Income Tax Preparer Relationship Specialty Start Date End Date Shaikh Denis MD [address] [place] [address] PCP - General Internal Medicine 10/17/23 05/16/24 Renny Hansen MD [address] [address] PCP - General Internal Medicine 09/19/24 Renny Hansen MD [address] [address] PCP - Medical [facility] 09/12/2409/11 Jazmín Calvillo NP [address] [place] [address] Nurse Practitioner Family Medicine 05/17/24 09/18/24 Cindi Jenkins, GIDEON [address] [place] [address] Technical Writer And Editor Family Medicine 11/06/24 12/05/24 Lisa Ramirez LPN [address] [address] 12/05/24 documented as of this encounter
--- OUTSIDE RECORDS SUMMARY | 2025-04-24 13:08 | XMS_ITS | Encounter Summary ---
Author Organization [facility] Address [address] [facility] [place] [address] Care Team Providers Care Health Counselor Name Role Phone Renny Hansen MD Primary Care Provider [phone] Renny Hansen MD Unavailable [phone] GregoryCindi CLAMP CARRIER OPERATOR Unavailable [phone] Lisa Ramirez TOBACCO BALER Unavailable Encounter Details Date Type Department Care Team (Late st Contact Info) Description 10/18/2024 Abstract [facility] [place] [facility] 112 [facility] 110 [place] [address] Renny Hansen MD 112 [facility] 110 [place] [address] Social History Tobacco Use Types Packs/Day Years [...] file 10/10/2024 How often do you attend caodaism or baptist serv ices? Patient declined 10/10/2024 Do you [...] 0 10/17/2024 [facility] of Occupat ional Health - [...] any time in the past 12 m [facility], were you homeless or living in a halfway (including now)? No 10/10/2024 Comments Unknown Sex [...] EDT Office Visit [facility] [place] [facility] 112 [facility] 110 [place] [address] Renny Hansen MD 112 [facility] [address] [place] [id number] documented as of this encounter Visit Diagnoses Not on filedocumented in this encounter Additional Health Concerns Assessment Noted Time PHQ-9 Depression Total Score: 1 09/06/20 23 2:00 PM EST documented as of this encounter Care Teams Health Counselor Relationship Specialty Start Date End Date Renny Hansen MD [address] [facility] 110 [place] [address] PCP - General Internal Medicine 09/19/24 Renny Hansen MD [address] [facility] 110 [place] [address] PCP - Medical [place] MA 09/12/2409/11 Cindi Jenkins, GIDEON [address] [place] [address] Pediatric Neuropsychologist Family Medicine 11/06/24 12/05/24 Lisa Ramirez LPN [address] [facility] 110 [place] [address] 12/05/24 documented as of this encounter
--- OUTSIDE RECORDS SUMMARY | 2025-04-24 13:08 | XMS_ITS | Encounter Summary ---
Author Organization [facility] Address [address] [facility] [place] [address] Care Team Providers Care Auto Technician Mechanic Name Role Phone Renny Hansen MD Primary Care Provider Renny Hansen MD Unavailable [phone] Lisa Ramirez LPN Unavailable Encounter Details Date Type Department Care Team (Latest Contact Info) Description 04/24/2025 Travel Social History Tobacco Use Types Packs/Day [...] often do you attend chur ch or restoration services? Patient declined 11/12/2024 Do you belong to any clubs o r organizations such as anabaptism groups, unions, fraternal or athletic groups, or [...] Recorded Patient Health Questionnaire-2 Score 0 04/24/2025 [facility] - [...] things Not at all 04/24/2025 9:33 AM GEOVANNY BOWMAN Feeling down, depressed, or hopeless Not at all 04/12 9:33 AM GEOVANNY BOWMAN Patient Health Questionnaire-2 Score 0 04/12 9:33 AM GEOVANNY BOWMAN documented as of this encounter Plan of Treatment Upcoming Encounters Date Type Department Care Team (Late st Contact Info) Description 05/16/2025 11:00 AM EDT Office Visit [facility] [place] [facility] [address] [place] [address] [place] [address] Renny Hansen MD [address] [facility] 110 [place] [address] documented as of this encounter Visit Diagnoses Not on filedocumented in this encounter Additional Health Concerns Assessment Noted Time PHQ-9 Depression Total Score: 1 09/06/20 23 2:00 PM EST documented as of this encounter Care Teams Auto Technician Mechanic Relationship Specialty Start Date End Date Renny Hansen MD [address] [facility] 110 [place] [address] PCP - General Internal Medicine 09/19/24 Renny Hansen MD [address] [facility] [address] [place] [address] PCP - Medical [facility] 09/12/2409/11 Lisa Ramirez LPN [address] [facility] 110 [place] [address] 12/05/24 documented as of this encounter
--- OUTSIDE RECORDS SUMMARY | 2025-04-24 13:08 | XMS_ITS | Encounter Summary ---
Author Organization [facility] Address [address] [facility] [place] [address] Care Team Providers Care Pug Mill Operator Name Role Phone Renny Hansen MD Primary Care Provider [phone] Renny Hansen MD Unavailable [phone] GregoryCindi ETHICAL HACKER Unavailable [phone] Lisa Ramirez FAMILY ASSESSMENT WORKER Unavailable Encounter Details Date Type Department Care Team (Late st Contact Info) Description 09/26/[address] 112 [facility] 110 [place] [address] Renny Hansen MD 112 [facility] 110 [place] [address] Social History Tobacco Use Types Packs/Day Years [...] How often do you attend gnosticism or temple serv ices? Patient declined 08/30/2023 Do you belong to any clubs o r organizations such as gnosticism groups, unions, fraGitCafe or athletic groups, or school groups? Yes [...] Recorded Patient Health Questionnaire-2 Score 0 05/31/2024 [facility] - Occupational Stress Questionnaire Answer Date Recorded [...] Visit [facility] [place] Zendejas [address] [facility] [address] [place] [address] Renny Hansen MD [address] [facility] [address] [place] [address] documented as of this encounter Visit Diagnoses Not on filedocumented in this encounter Additional Health Concerns Assessment Noted Time PHQ-9 Depression Total Score: 1 09/06/20 23 2:00 PM EST documented as of this encounter Care Teams Pug Mill Operator Relationship Specialty Start Date End Date Renny Hansen MD [address] [facility] 110 [place] [address] PCP - General Internal Medicine 09/19/24 Renny Hansen MD [address] [facility] [address] [place] [address] PCP - Medical [place] 09/12/2409/11 Cindi Jenkins, GIDEON [address] [place] [address] Offbearer Family Medicine 11/06/24 12/05/24 Lisa Ramirez LPN 112 [facility] 110 [place] [address] 12/05/24 documented as of this encounter
--- OUTSIDE RECORDS SUMMARY | 2025-04-24 13:08 | XMS_ITS | Encounter Summary ---
Author Organization [facility] Address [address] [facility] [place] [address] Care Team Providers Care Clinical Laboratory Aides Teacher Name Role Phone Jazmín Calvillo VISCOSE CELLAR CHARGE HAND Unavailable [phone] Renny Hansen MD Primary Care Provider [phone] Renny Hansen MD Unavailable [phone] Cindi Jenkins CLOTH DYE RANGE OPERATOR Unavailable [phone] Lisa Ramirez OPERATORS TEACHER Unavailable Encounter Details Date Type Department Care Team (Late st Contact Info) Description 08/27/2024 Abstract [facility] [place] [facility] [address] [place] [address] [place] [address] Unallocated, Candido Provider, [address], [place] [address] Social History Tobacco Use Types Packs/Day Years [...] week 08/30/2023 How often do you attend congregation or bahai serv ices? Patient declined 08/30/2023 Do you belong to any clubs o r organizations such as congregation groups, unions, fraternal or athletic groups, or [...] Recorded Patient Health Questionnaire-2 Score 0 05/31/2024 [facility] Occupat ional Health [...] Visit [facility] [place] Zendejas [address] [facility] [address] [place] [address] Renny Hansen MD [address] [facility] 110 [place] [address] documented as of this encounter Visit Diagnoses Not on filedocumented in this encounter Additional Health Concerns Assessment Noted Time PHQ-9 Depression Total Score: 1 09/06/20 23 2:00 PM EST documented as of this encounter Care Teams Clinical Laboratory Aides Teacher Relationship Specialty Start Date End Date Renny Hansen MD [address] [facility] 110 [place] [address] PCP - General Internal Medicine 09/19/24 Renny Hansen MD [address] [facility] 110 [place] [address] PCP - Medical [place] 09/12/2409/11 Jazmín Calvillo NP Nurse Practitioner Family Medicine 05/17/24 09/18/24 Cindi Jenkins, CLOTH DYE RANGE OPERATOR [address] [place], [place] [id number] Biomedical Field Service Engineer Family Medicine 11/06/24 12/05/24 Lisa Ramirez LPN [address] [facility] 110 [place] [address] 12/05/24 documented as of this encounter
--- OUTSIDE RECORDS SUMMARY | 2025-04-24 13:08 | XMS_ITS | Encounter Summary ---
Author Organization [facility] Address [address] [facility] [place] [address] Care Team Providers Care Nurse Advisor Name Role Phone Renny Hansen MD Primary Care Provider [phone] Renny Hansen MD Unavailable [phone] Lisa Ramirez LPN Unavailable Encounter Details Date Type Department Care Team (Late st Contact Info) Description 04/17/2025 Telephone [facility] [place] [facility] [address] [facility] 110 [place] [address] Renny Hanesn MD 112 [facility] 110 [place] [address] Social History Tobacco Use Types Packs/Day Years [...] How often do you attend chur or restorationism services? Patient declined 11/12/2024 Do you belong to any clubs o r organizations such as quaker groups, unions, fraternal or athletic groups, or [...] Recorded Patient Health Questionnaire-2 Score 0 04/18/2025 [facility] of Occupat ional Health - Occupational [...] in the past [address] [facility], were you homeless or living in a [...] things Not at all 04/18/2025 10:57 AM BRIGIDAT Radha Iverson L PN Feeling down, depressed, or hopeless Not at all 04/18/2025 10:57 AM EDT Radha Iverson L PN Patient Health Questionnaire -2 Score 0 04/18/2025 10:57 AM EDT Radha Iverson L PN documented as of this encounter Progress Notes * Lisa Ramirez LPN - 04/18/2025 3:34 PM EDT Face to face OV notes faxed to [employer] * Lisa Ramirez LPN - 04/18/2025 8:54 AM EDT Pt has appt 04/18 to complete face to face. * Lisa Ramirez LPN - 04/17/2025 1:05 PM EDT Call to pt to let pt know that a face to face office visit is needed for the [employer] company to processNebulizer prescription. No answer, message left. documented in this encounter Miscellaneous Notes * Telephone Encounter - GEOVANNY ALAS - 04/17/2025 11:53 AM EDT Hi, this call is for the nurse for Dr. Renny Adrian. I am calling from [employer]. In regards to the order for Meredith seen AI D W O Y A N is the last name. Date of is 1945. We received an order for this patient for a nebulizer. There was only 2 pages. We will also need to have the progress notes sent over along with a medication list. And our fax number is [phone] and our phone number is [phone]. Thank you documented in this encounter Plan of Treatment Upcoming Encounters Date Type Department Care Team (Late st Contact Info) Description 05/16/2025 11:00 AM EDT [facility] [place] [facility] 112 [facility] 110 [place] [address] Renny Hansen MD [address] [address] documented as of this encounter Visit Diagnoses Diagnosis Chronic obstructive pulmonary disease, unspecified COPD type (HCC)- Primary Persistent atrial fibrillation (HCC) Atrial fibrillation documented in this encounter Additional Health Concerns Assessment Noted Time PHQ-9 Depression Total Score: 1 09/06/20 23 2:00 PM EST documented as of this encounter Care Teams Nurse Advisor Relationship Specialty Start Date End Date Renny Hansen MD [address] [address] PCP - General Internal Medicine 09/19/24 Renny Hansen MD [address] [address] PCP - Medical [place] 09/12/2409/11 Lisa Ramirez LPN [address] [address] 12/05/24 documented as of this encounter
--- OUTSIDE RECORDS SUMMARY | 2025-04-24 13:08 | XMS_ITS | Encounter Summary ---
Author Organization [facility] Address [address] [place] [address] Care Team Providers Care Body Line Finisher Name Role Phone Shaikh BEREKET Denis Primary Care Provider [phone] Jazmín Calvillo RESIDENT SERVICES DIRECTOR Unavailable [phone] Renny Hansen MD Primary Care Provider [phone] Renny Hansen MD Unavailable [phone] Cindi Jenkins AUTO HEATER MECHANIC Unavailable [phone] Lisa Ramirez REFINERY OPERATOR VAPOR RECOVERY UNIT Unavailable Encounter Details Date Type Department Care Team (Late st Contact Info) Description 11/14/2023 Orders Only [facility] [address] [place] [address] Shaikh Denis MD [address] [place] [address] Social History Tobacco Use Types [...] week 08/30/2023 How often do you attend oriental orthodox or episcopal serv ices? Patient declined 08/30/2023 Do you belong to any clubs o r organizations such as oriental orthodox groups, unions, fraAxiata or athletic groups, or school groups? Yes [...] Patient Health Questionnaire-2 Score 0 11/07/2023 [facility] of Occupat ional Health [...] EDT Office Visit [facility] [place] Zendejas 112 [facility] 110 [place] [address] Renny Hansen MD [address] [facility] 110 [place] [address] documented as of this encounter Procedures Procedure [...] documented as of this encounter Care Teams Body Line Finisher Relationship Specialty Start Date End Date Shaikh Denis MD [address] [place] [address] PCP - General Internal Medicine 10/17/23 05/16/24 Renny Hansen MD [address] [facility] 110 [place] [address] PCP - General Internal Medicine 09/19/24 Renny Hansen MD [address] [facility] 110 [place] [address] PCP - Medical [facility] 09/12/2409/11 Jazmín Calvillo NP [address] [place] [address] Nurse Practitioner Family Medicine 05/17/24 09/18/24 Cindi Jenkins, GIDEON [address] [place] [address] Brass Finisher Family Medicine 11/06/24 12/05/24 Lisa Ramirez LPN [address] [facility] 110 [place] [address] 12/05/24 documented as of this encounter
--- OUTSIDE RECORDS SUMMARY | 2025-04-24 13:08 | XMS_ITS | Encounter Summary ---
Author Organization [facility] Address [address] [facility] [place] [address] Care Team Providers Care Commissions Manager Name Role Phone Renny Hansen MD Primary Care Provider Renny Hansen MD Unavailable Lisa Ramirez LPN Unavailable Encounter Details Date Type Department Care Team (Latest Contact Info) Description 04/18/2025 Travel Social History Tobacco Use Types Packs/Day [...] often do you attend chur ch or christianity services? Patient declined 11/12/2024 Do you belong to any clubs o r organizations such as oriental orthodox groups, unions, fraternal or athletic groups, [...] Recorded Patient Health Questionnaire-2 Score 0 04/18/2025 [facility] - Occupational Stress Questionnaire Answer [...] AM EDT Office Visit [facility] [place] [facility] [address] [place] [address] [place] [address] Renny Hansen MD [address] [facility] 110 [place] [address] documented as of this encounter Visit Diagnoses Not on filedocumented in this encounter Additional Health Concerns Assessment Noted Time PHQ-9 Depression Total Score: 1 09/06/20 23 2:00 PM EST documented as of this encounter Care Teams Commissions Manager Relationship Specialty Start Date End Date Renny Hansen MD [address] [facility] 110 [place] [address] PCP - General Internal Medicine 09/19/24 Renny Hansen MD [address] [facility] 110 [place] [address] PCP - Medical [facility] 09/12/2409/11 Lisa Ramirez LPN [address] [facility] 110 [place] [address] 12/05/24 documented as of this encounter
--- OUTSIDE RECORDS SUMMARY | 2025-04-24 13:08 | XMS_ITS | Encounter Summary ---
Author Organization [facility] Address [address] [place] [address] Care Team Providers Care Degreaser Operator Name Role Phone Jazmín Calvillo DATA PROCESSING EQUIPMENT REPAIRER Unavailable [phone] Renny Hansen MD Primary Care Provider [phone] Renny Hansen MD Unavailable Cindi Jenkins JAIL MANAGER Unavailable [phone] Lisa Ramirez FIELD STAFF Unavailable Encounter Details Date Type Department Care Team (Late st Contact Info) Description 07/24/2024 Abstract [facility] [address] [place] [address] Wesley Long MD [address] [place] [address] Social History Tobacco Use Types Packs/Day Years [...] week 08/30/2023 How often do you attend jainism or islam serv ices? Patient declined 08/30/2023 Do you belong to any clubs o r organizations such as jainism groups, unions, fraternal or athletic groups, or [...] Recorded Patient Health Questionnaire-2 Score 0 05/31/2024 [facility] of Occupat ional Health - [...] Visit [facility] [place] Zendejas [address] [facility] 110 [place] [address] Renny Hansen MD [address] [facility] 110 [place] [address] documented as of this encounter Visit Diagnoses Not on filedocumented in this encounter Additional Health Concerns Assessment Noted Time PHQ-9 Depression Total Score: 1 09/06/20 23 2:00 PM EST documented as of this encounter Care Teams Degreaser Operator Relationship Specialty Start Date End Date Renny Hansen MD [address] [facility] 110 [place] [address] PCP - General Internal Medicine 09/19/24 Renny Hansen MD [address] [facility] 110 [place] [address] PCP - Medical [place] 09/12/2409/11 Jazmín Calvillo NP Nurse Practitioner Family Medicine 05/17/24 09/18/24 Cindi Jenkins, JAIL MANAGER [address] [place] [address] School Bus Driver/Teacher Assistant Family Medicine 11/06/24 12/05/24 Lisa Ramirez LPN [address] [facility] 110 [place] [address] 12/05/24 documented as of this encounter
--- OUTSIDE RECORDS SUMMARY | 2025-04-24 13:08 | XMS_ITS ---
Author Organization [facility] Address [address] [place] [address] Care Team Providers Care Applied Technologist Name Role Phone Renny Hansen MD Primary Care Provider [phone] Renny Hansen MD Unavailable [phone] Lisa Ramirez LPN Unavailable Chronic Care Management (CCM) Status:Enrolled (Active) Start date:11/06/2024 Enrollment date:11/08/2024 Enrollment reason:Identified as high-risk Case Team Name Relationship Phone Lisa Ramirez LPN(Responsible Staff) [phone] Continued Care and Services Coordination
--- OUTSIDE RECORDS SUMMARY | 2025-04-24 13:08 | XMS_ITS | Encounter Summary ---
Author Organization [facility] Address [address] [facility] [place] [address] Care Team Providers Care Sheet Rock Applicator Name Role Phone Shaikh BEREKET Denis Primary Care Provider [phone] Jazmín Calvillo FOCUSED FACTORY MANAGER Unavailable [phone] Renny Hansen MD Primary Care Provider [phone] Renny Hansen MD Unavailable [phone] Cindi Jenkins BILLET RECORDER Unavailable [phone] Lisa Ramirez REFINERY OPERATOR LIGHT ENDS RECOVERY Unavailable Encounter Details Date Type Department Care [...] week 08/30/2023 How often do you attend anabaptist or amish serv ices? Patient declined 08/30/2023 Do you belong to any clubs o r organizations such as anabaptist groups, unions, fraternal or athletic groups, or [...] Recorded Patient Health Questionnaire-2 Score 0 11/07/2023 [facility] Occupat ional Health - Occupational [...] a m[facility] (including now)? Patient refused 08/30/2023 Comments Unknown [...] EDT Office Visit [facility] [place] Zendejas 112 [facility] 110 [place] [address] Renny Hansen MD 112 [facility] 110 [place] [address] documented as of this encounter Procedures Procedure Name Priority Date/Time Associated Diagnosis Comments XR DEXA AXIAL SKELETON 12/12/2023 1:46 PM EDT documented in this encounter Results * XR DEXA AXIAL SKELETON (12/12/2023 1:46 PM EDT) Anatomical Region Laterality Modality Other 12/12/2023 1:46 PM EDT Narrative 12/12/2023 1:48 PM EDT The [address] [address] XRay Report Signed Patient: MAXIMUS STARKS MR#: [id number] : 1945 Acct:[id number] Age/Sex: 78 / F ADM Date: 12/12/23 Loc: RAD Attending Dr: Renée Barry NP Ordering Physician: Renée Barry NP Date of Service: 12/12/23 Procedure(s): XR DEXA axial skeleton Accession Number(s): [id number] cc: Shaikh Magui Denis; Renée Barry NP The [place] [address] Patient Name: MAXIMUS STARKS MRN: [id number] date: 1945 Sex: F Assigned Patient Location: RAD Current Patient Location: [facility] Accession/Order Number: [id number] Exam Date: 12/12/2023 12:57 Report Date: 12/12/2023 [...] Signed By: 12/12/23 1348 DD/ 1346 TD/TT: Computer Repair Engineer: Procedure Note Radiology, Radiologist, MD - 12/15/2023 [place] [address] XRay Report Signed Patient: MAXIMUS STARKS TMR#: [id number] : 8Acct:[id number] Age/Sex: 78 / FADM Date: 12/12/23 Loc: RAD Attending Dr: Renée Barry FOCUSED FACTORY MANAGER Ordering Physician: Renée Barry NP Date of Service: 12/12/23 Procedure(s): XR DEXA axial skeleton Accession Number(s): [id number] cc: Shaikh Magui Denis; Renée Barry NP [place] [id number] Patient Name: MAXIMUS STARKS MRN: [id number] date: 1945 Sex: F Assigned Patient Location: RAD Current Patient Location: RAD Accession/Order Number: [id number] Exam Date: 12/12/2023 12:57 Report Date: 12/12/2023 [...] M.D. Signed By:12/12/23 1348 DD/ 1346 TD/TT: Computer Repair Engineer: us Generic External Data Provider [facility] Final Result documented in this encounter Visit Diagnoses Not on filedocumented in this encounter Additional Health Concerns Assessment Noted Time PHQ-9 Depression Total Score: 1 09/06/20 23 2:00 PM EST documented as of this encounter Care Teams Sheet Rock Applicator Relationship Specialty Start Date End Date Shaikh Denis MD [address] [place] [address] PCP - General Internal Medicine 10/17/23 05/16/24 Renny Hansen MD [address] [facility] 110 [place] [address] PCP - General Internal Medicine 09/19/24 Renny Hansen MD [address] [facility] 110 [place] [address] PCP - Medical [facility] 09/12/2409/11 Jazmín Calvillo NP [address] [place] [address] Nurse Practitioner Family Medicine 05/17/24 09/18/24 Cindi Jenkins, GIDEON [address] [place] [address] Slot Tag Inserter Family Medicine 11/06/24 12/05/24 Lisa Ramirez LPN [address] [address] 12/05/24 documented as of this encounter
--- OUTSIDE RECORDS SUMMARY | 2025-04-24 13:08 | XMS_ITS | Encounter Summary ---
Author Organization [facility] Address [address] [facility] [place] [address] Care Team Providers Care Sample Supervisor Name Role Phone Renny Hansen MD Primary Care Provider [phone] Renny Hansen MD Unavailable [phone] Lisa Ramirez LPN Unavailable Encounter Details Date Type Department Care Team (Late st Contact Info) Description 04/18/2025 Bamboo flowsheet [facility] [place] [facility] [address] [facility] 110 [place] [address] Eleanor Leahy PA 112 [facility] 110 [place] [address] Social History Tobacco Use Types Packs/Day Years [...] often do you attend chur ch or mormon services? Patient declined 11/12/2024 Do you belong to any clubs o r organizations such as restoration groups, unions, fraternal [...] Recorded Patient Health Questionnaire-2 Score 0 04/18/2025 [facility] of Occupat ional Health - Occupational Stress [...] in the past 12 m [facility], were you homeless or living in [...] [facility] [address] [place] [address] Renny Hansen MD 112 [facility] 110 [place] [address] documented as of this encounter Visit Diagnoses Not on filedocumented in this encounter Additional Health Concerns Assessment Noted Time PHQ-9 Depression Total Score: 1 09/06/20 23 2:00 PM EST documented as of this encounter Care Teams Sample Supervisor Relationship Specialty Start Date End Date Renny Hansen MD [address] [place] [facility] 110 [place] [address] PCP - General Internal Medicine 09/19/24 Renny Hansen MD [address] [place] [facility] 110 [place] [address] PCP - Medical [facility] 09/12/2409/11 Lisa Ramirez LPN [address] [place] [facility] 110 [place] [address] 12/05/24 documented as of this encounter
--- OUTSIDE RECORDS SUMMARY | 2025-04-24 13:08 | XMS_ITS | Encounter Summary ---
Author Organization [facility] Address [address] [facility] [place] [address] Care Team Providers Care Drawing Tracer Name Role Phone Renny Hansen MD Primary Care Provider [phone] Renny Hansen MD Unavailable [phone] GregoryCindi OFFICE SUPPORT SPECIALIST Unavailable [phone] Lisa Ramirez BUCK SWAMPER Unavailable Encounter Details Date Type Department Care Team (Late st Contact Info) Description 10/30/2024 Abstract [facility] 112 [facility] 110 [place] [address] Renny Hansen MD 112 [facility] 110 [place] [address] Social History Tobacco Use Types Packs/Day Years [...] file 10/10/2024 How often do you attend latter-day or spiritism serv ices? Patient declined 10/10/2024 Do you belong to any clubs o r organizations such as latter-day groups, unions, fraternal or athletic groups, or [...] Health Questionnaire-2 Score 0 10/17/2024 [facility] of Occupat ional Health - Occupational [...] EDT Office Visit [facility] [place] Zendejas 112 [facility] 110 [place] [address] Renny Hansen MD 112 [facility] 110 [place] [id number] documented as of this encounter Visit Diagnoses Not on filedocumented in this encounter Additional Health Concerns Assessment Noted Time PHQ-9 Depression Total Score: 1 09/06/20 23 2:00 PM EST documented as of this encounter Care Teams Drawing Tracer Relationship Specialty Start Date End Date Renny Hansen MD [address] [facility] 110 [place] [address] PCP - General Internal Medicine 09/19/24 Renny Hansen MD [address] [facility] 110 [place] [address] PCP - Medical [place] 09/12/2409/11 Cindi Jenkins, GIDEON [address] [place] [address] Outreach Rep Family Medicine 11/06/24 12/05/24 Lisa Ramirez LPN [address] [facility] 110 [place] [address] 12/05/24 documented as of this encounter
--- OUTSIDE RECORDS SUMMARY | 2025-04-24 13:08 | XMS_ITS | Encounter Summary ---
Author Organization [facility] Address [address] [place] [address] Care Team Providers Care Travel Consultant Name Role Phone Renny Hansen MD Primary Care Provider [phone] Renny Hansen MD Unavailable [phone] Cindi Jenkins SERVICE CENTER TECHNICIAN Unavailable [phone] Lisa Ramirez SOCIAL SCIENCE PROFESSOR Unavailable Encounter Details Date Type Department Care Team (Late st Contact Info) Description 10/16/2024 External Result Encounter [facility] External Department Unsolicited Dmitriy Duque, DO [address] [place] [address] Social History Tobacco Use Types Packs/Day Years [...] How often do you attend muslim or jewish serv ices? Patient declined 10/10/2024 Do you [...] Recorded Patient Health Questionnaire-2 Score 0 10/17/2024 [facility] of Occupat ional Health - [...] a chcf (including now)? Patient refused 08/30/2023 Housing Stability Vital Sign Answer Ananda e Recorded In the last 12 months, was t here a time when you were not able to pay the mortgage or rent on time? No 10/10/2024 Number of Times Moved in the Last Year Not on fi le 10/10/2024 At any time in the past 12 m [facility], were you homeless or living in a chcf (including now)? No 10/10/2024 Comments Unknown Sex [...] AM EDT [facility] 110 [place] [address] Renny Hansen MD 112 [facility] 110 [place] [address] documented as of this encounter Procedures Procedure [...] Benton Jr., D.O.10/16/2024 2:20 PM Dictation Location: [facility] Tech: Ghazal Barber Transcribed By: STAR 10/16/24 1420 Dictated By: Francisco J Benton Jr, DO 10/16/24 1343 Signed By: <Electronically signed by Francisco J Benton Jr, DO in OV> 10/16/24 1420 Narrative 10/16/2024 2:30 PM EST [facility] [place] [address] [place] [address] Ultrasound Report Signed Patient: Breann Starks MR#: [id number] : 1945 Acct:[id number] Age/Sex: 78 / F ADM Date: 10/16/24 Loc: [facility] Room: Type: REG CLI Attending Dr: Dmitriy Duque DO Ordering Provider: Dmitriy Duque DO Date of Service: 10/16/24 US/US axilla: R92.8 ([id number]) MM/MM diagnostic mammo BI w/CAD: ENLARGED LT [...] compressible. US/US axilla Procedure Note Radiology, Radiologist, - 10/16/2024 [facility] Main [place] [address] [place] [address] Ultrasound Report Signed Patient: Breann Starks TMR#: [id number] : 8Acct:[id number] Age/Sex: 78 / FADM Date: 10/16/24 Loc: [facility] Room:Type: REG CLI Attending Dr: Dmitriy Duque DO Ordering Provider: Dmitriy Duque DO Date of Service: 10/16/24 US/US axilla: R92.8 ([id number]) MM/MM diagnostic mammo BI w/CAD: ENLARGED LT [...] Benton Jr., D.O.10/16/2024 2:20 PM Dictation Location: [facility] Tech: Ghazal Wilson; Kadi Barber Transcribed By: [...] documented as of this encounter Care Teams Travel Consultant Relationship Specialty Start Date End Date Renny Hansen MD [address] [facility] 110 [place] [address] PCP - General Internal Medicine 09/19/24 Renny Hansen MD [address] [facility] 110 [place] [address] PCP - Medical [place] 09/12/2409/11 Cindi Jenkins, SERVICE CENTER TECHNICIAN [address] [place] [address] Test Engine Operator Family Medicine 11/06/24 12/05/24 Lisa Ramirez LPN [address] [facility] 110 [place] [address] 12/05/24 documented as of this encounter
--- OUTSIDE RECORDS SUMMARY | 2025-04-24 13:08 | XMS_ITS | Encounter Summary ---
Author Organization [facility] Address [address] [place] [address] Care Team Providers Care Stevedore Hold Name Role Phone Shaikh BEREKET Denis Primary Care Provider [phone] Jazmín Calvillo BRAND DESIGNER Unavailable [phone] Renny Hansen MD Primary Care Provider [phone] Renny Hansen MD Unavailable [phone] Cindi Jenkins WHEEL GRINDER Unavailable [phone] Lisa Ramirez CYBER WORKFORCE DEVELOPER AND MANAGER Unavailable Encounter Details Date Type Department Care Team (Late st Contact Info) Description 12/12/2023 Orders Only [facility] [address] [place] [id number] Kayley Reeder, WHITE SPOOLER-MID LEVEL GAME DESIGNER [address] [facility] [place], [place] [address] Social History Tobacco Use Types Packs/Day Years [...] week 08/30/2023 How often do you attend christian or mosque serv ices? Patient declined 08/30/2023 Do you belong to any clubs o r organizations such as christian groups, unions, fraternal or athletic groups, or [...] Patient Health Questionnaire-2 Score 0 11/07/2023 [facility] of Occupat ional [...] 11:00 AM EDT Office Visit [facility] 112 [facility] 110 [place] [address] Renny Hansen MD 112 [facility] 110 [place] [address] documented as of this encounter Procedures Procedure Name Priority Date/Time Associated Diagnosis Comments XR DEXA AXIAL SKELETON* Routine 12/12/2023 2:05 PM EDT documented in this encounter Results * XR DEXA AXIAL SKELETON* (12/12/2023 2:05 PM EDT) Anatomical Region Laterality Modality Radiographic Jayashree ging Kayley Reeder WHITE SPOOLER-MID LEVEL GAME DESIGNER IMG XR PROCEDURES Summer l Result documented in this encounter Visit Diagnoses Not on filedocumented in this encounter Additional Health Concerns Assessment Noted Time PHQ-9 Depression Total Score: 1 09/06/20 23 2:00 PM EST documented as of this encounter Care Teams Stevedore Hold Relationship Specialty Start Date End Date Shaikh Denis MD [address] [place] [address] PCP - General Internal Medicine 10/17/23 05/16/24 Renny Hansen MD [address] [facility] 110 [place] [address] PCP - General Internal Medicine 09/19/24 Renny Hansen MD [address] [facility] 110 [place] [address] PCP - Medical [facility] 09/12/2409/11 Jazmín Calvillo NP [address] [place] [address] Nurse Practitioner Family Medicine 05/17/24 09/18/24 Cindi Jenkins, GIDEON [address] [place] [address] Gas Utility Worker Family Medicine 11/06/24 12/05/24 Lisa Ramirez LPN [address] [facility] 110 [place] [address] 12/05/24 documented as of this encounter
--- OUTSIDE RECORDS SUMMARY | 2025-04-24 13:09 | XMS_ITS | Encounter Summary ---
Author Organization [facility] Address [address] [place] [address] Care Team Providers Care Tank Erector Name Role Phone Jazmín Calvillo NP Unavailable [phone] Renny Hansen MD Primary Care Provider [phone] Renny Hansen MD Unavailable [phone] Cindi Jenkins SITE DAMAGE PREVENTION TECHNICIAN Unavailable [phone] Lisa Ramirez MANAGER PLANNING Unavailable Encounter Details Date Type Department Care [...] week 08/30/2023 How often do you attend holiness or adventist serv ices? Patient declined 08/30/2023 [...] Recorded Patient Health Questionnaire-2 Score 0 05/31/2024 [facility] of Occupat ional Health - [...] EDT Office Visit [facility] [place] Zendejas 112 [facility] 110 [place] [address] Renny Hansen MD 112 [facility] 110 [place] [address] documented as of this encounter Procedures Procedure Name Priority Date/Time Associated Diagnosis Comments CT CERVICAL SPINE W IV CONTRAST 06/28/2024 8:43 AM EDT documented in this encounter Results * CT cervical spine w IV contrast (06/28/2024 8:43 AM EDT) Anatomical Region Laterality Modality Spine, C-spine Computed Tomogra phy 06/28/2024 8:43 AM EDT Narrative 06/28/2024 8:45 AM EDT The [address] [address] [address] Scan Report Signed Patient: BREANN STARKS MR#: [id number] : 1945 Acct:[id number] Age/Sex: 78 / F ADM Date: 06/26/24 Loc: CT Attending Dr: VangieStaff Physician [place] Ordering Physician: Channing Devlin M.D. Date of Service: 06/26/24 Procedure(s): CT cervical spine w con Accession Number(s): [id number] cc: RENNY HANSEN [place] [address] Patient Name: BREANN STARKS MRN: [facility]:[id number] date: 1945 Sex: F Assigned Patient Location: CT Current Patient Location: Accession/Order Number: [id number] Exam Date: 06/26/2024 14:58 Report Date: 06/28/2024 [...] due to patient body habitus and poor pspvuz-wb-ayooe ratio BONES: Reversal of normal cervical lordosis. [...] Dictated By: Hong Alston M.D. Signed By: 06/28/2445 DD/ TD/TT: Carpenter Wooden Tank Erecting: Procedure Note Radiology, Radiologist, - 06/28/[address] [place] [id number] Scan Report Signed Patient: BREANN STARKS TMR#: [id number] : 1945cct:[id number] Age/Sex: 78 / FADM Date: 06/26/24 Loc: CT Attending Dr: Non-Staff Physician Magui Ordering Physician: Channing Devlin M.D. Date of Service: 06/26/24 Procedure(s): CT cervical spine w con Accession Number(s): [id number] cc: RENNY HANSEN [place] [address] Patient Name: BREANN STARKS MRN: [facility]:[id number] date: 1945 Sex: F Assigned Patient Location: CT Current Patient Location: Accession/Order Number: [id number] Exam Date: 06/26/2024 14:58 Report Date: 06/28/2024 [...] due to patient body habitus and poor znzaiz-za-cfmos ratio BONES: Reversal of normal cervical lordosis. [...] Alston M.D. Signed By:06/28/2445 DD/ 2 TD/TT: Carpenter Wooden Tank Erecting: us Generic External Data Provider IMG CT PROCEDURES Final Result documented in this encounter Visit Diagnoses Not on filedocumented in this encounter Additional Health Concerns Assessment Noted Time PHQ-9 Depression Total Score: 1 09/06/20 23 2:00 PM EST documented as of this encounter Care Teams Tank Erector Relationship Specialty Start Date End Date Renny Hansen MD [address] [facility] 110 [place] [address] PCP - General Internal Medicine 09/19/24 Renny Hansen MD [address] [facility] 110 [place] [address] PCP - Medical [facility] 09/12/2409/11 Jazmín Calvillo NP Nurse Practitioner Family Medicine 05/17/24 09/18/24 Cindi Jenkins LSW [address] [place] [address] Saturator Operator Family Medicine 11/06/24 12/05/24 Lisa Ramirez LPN [address] [facility] 110 [place] [address] 12/05/24 documented as of this encounter
--- OUTSIDE RECORDS SUMMARY | 2025-04-24 13:09 | XMS_ITS | Encounter Summary ---
Author Organization [facility] Address [address] [facility] [place] [address] Care Team Providers Care Bench Inspector Name Role Phone Jazmín Calvillo GLOBE CLEANER Unavailable [phone] Renny Hansen MD Primary Care Provider [phone] Renny Hansen MD Unavailable [phone] Cindi Jenkins SAP INTEGRATION ARCHITECT Unavailable Lisa Ramirez TELEPHONE EXCHANGE OPERATOR Unavailable Encounter Details Date Type Department Care Team (Late st Contact Info) Description 07/09/2024 Abstract [facility] [address] [place] 110 [place] [address] Unallocated, Candido Provider, [address] [place], [place] [address] Social History Tobacco Use Types Packs/Day Years [...] How often do you attend jew or mu-ism serv ices? Patient declined 08/30/2023 Do you [...] Visit [facility] [place] Zendejas [address] [facility] 110 [place] [address] Renny Hansen MD [address] [facility] 110 [place] [address] documented as of this encounter Visit Diagnoses Not on filedocumented in this encounter Additional Health Concerns Assessment Noted Time PHQ-9 Depression Total Score: 1 09/06/20 23 2:00 PM EST documented as of this encounter Care Teams Bench Inspector Relationship Specialty Start Date End Date Renny Hansen MD [address] [facility] 110 [place] [address] PCP - General Internal Medicine 09/19/24 Renny Hansen MD [address] [facility] 110 [place] [address] PCP - Medical [place] 09/12/2409/11 Jazmín Calvillo NP Nurse Practitioner Family Medicine 05/17/24 09/18/24 Cindi Jenkins, SAP INTEGRATION ARCHITECT [address] [place], [place] [address] [facility] Family Medicine 11/06/24 12/05/24 Lisa Ramirez LPN [address] [facility] 110 [place] [address] 12/05/24 documented as of this encounter
--- OUTSIDE RECORDS SUMMARY | 2025-04-24 13:09 | XMS_ITS | Encounter Summary ---
Author Organization [facility] Address [address] [facility] [place] [address] Care Team Providers Care Vat Cleaner Name Role Phone Jazmín Calvillo PRE ASSEMBLY WIRER Unavailable [phone] Renny Hansen MD Primary Care Provider [phone] Renny Hansen MD Unavailable [phone] Cindi Jenkins PAINT SPECIALIST Unavailable [phone] Lisa Ramirez PERCUSSION INSTRUMENT REPAIRER Unavailable Encounter Details Date Type Department Care Team (Late st Contact Info) Description 08/08/2024 Clinisync Result Encounter [facility] External Department Unsolicited Renny Hansen MD [address] [address] Social History Tobacco Use Types Packs/Day Years [...] How often do you attend hinduism or restoration serv ices? Patient declined 08/30/2023 Do you belong to any clubs o r organizations such as hinduism groups, unions, fraCabochon Aesthetics or athletic groups, or school groups? Yes [...] 05/31/2024 [facility] - Occupational Stress Questionnaire Answer Date [...] the money to buy more. Patient declined 12 / Within the past 12 months, t he [...] EDT Office Visit [facility] [place] Zendejas 112 [facility] 110 [place] [address] Renny Hansen MD 112 [facility] 110 [place] [address] documented as of this encounter Procedures Procedure Name Priority Date/Time Associated Diagnosis Comments XR CINERADIOGRAPHY 08/08/2024 6: 31 AM EST documented in this encounter Results * XR CINERADIOGRAPHY (08/08/2024 6:31 AM EST) Anatomical Region Laterality Modality Other 08/08/2024 6:31 AM EST Narrative 08/08/2024 6:33 AM EST The [address] [address] Fluoroscopy Report Signed Patient: BREANN HERRMANN MR#: [id number] : 1945 Acct:[id number] Age/Sex: 78 / F ADM Date: 08/07/24 Loc: [place] Attending Dr: RENNY HANSEN Ordering Physician: RENNY HANSEN Date of Service: 08/07/24 Procedure(s): [place] cineradiography Accession Number(s): [id number] cc: RENNY HANSEN The [place] [address] Patient Name: BREANN HERRMANN MRN: [id number] date: 1945 Sex: F Assigned Patient Location: [place] Current Patient Location: Accession/Order Number: [id number] Exam Date: 08/07/2024 08:45 Report Date: 08/08/2024 [...] Dictated By: Wil Delgado M.D. Signed By: 08/08/2433 DD/ 0 TD/TT: Spanish Professor: Procedure Note Radiology, Radiologist, MD - 08/08/2024 [place] [address] Fluoroscopy Report Signed Patient: BREANN HERRMANN TMR#: [id number] : 8Acct:[id number] Age/Sex: 78 / FADM Date: 08/07/24 Loc: [place] Attending Dr: RENNY HANSEN Ordering Physician: RENNY HANSEN Date of Service: 08/07/24 Procedure(s): [place] cineradiography Accession Number(s): [id number] cc: RENNY HANSEN [place] [id number] Patient Name: BREANN HERRMANN MRN: [id number] date: 1945 Sex: F Assigned Patient Location: [place] Current Patient Location: Accession/Order Number: [id number] Exam Date: 08/07/2024 08:45 Report Date: 08/08/2024 [...] Delgado M.D. Signed By:08/08/24632 DD/ 0 TD/TT: Spanish Professor: Renny Hansen MD [facility] Final Result documented in this encounter Visit Diagnoses Not on filedocumented in this encounter Additional Health Concerns Assessment Noted Time PHQ-9 Depression Total Score: 1 09/06/20 23 2:00 PM EST documented as of this encounter Care Teams Vat Cleaner Relationship Specialty Start Date End Date Renny Hansen MD [address] [facility] 110 [place] [address] PCP - General Internal Medicine 09/19/24 Renny Hansen MD [address] [facility] 110 [place] [address] PCP - Medical [place] 09/12/2409/11 Jazmín Calvillo NP Nurse Practitioner Family Medicine 05/17/24 09/18/24 Cindi Jenkins LSW [address] [place] [address] Salvage Mend Worker Family Medicine 11/06/24 12/05/24 Lisa Ramirez LPN 112 [facility] 110 [place] [address] 12/05/24 documented as of this encounter
--- OUTSIDE RECORDS SUMMARY | 2025-04-24 13:09 | XMS_ITS | Encounter Summary ---
Author Organization [facility] Address [address] [facility] [place] [address] Care Team Providers Care Salvage Repairer Name Role Phone Jazmín Calvillo EQUIPMENT LEAD Unavailable [phone] Renny Hansen MD Primary Care Provider [phone] Renny Hansen MD Unavailable [phone] Cindi Jenkins PAPERHANGER CONTRACTOR Unavailable [phone] Lisa Ramirez SALES ORDER PROCESSOR Unavailable Encounter Details Date Type Department Care Team (Late st Contact Info) Description 08/08/2024 Clinisync Result Encounter N[facility]S External Department Unsolicited Renny Hansen MD [address] [address] Social History Tobacco Use Types Packs/Day Years [...] How often do you attend restorationism or congregational serv ices? Patient declined 08/30/2023 Do you belong to any clubs o r organizations such as restorationism groups, unions, fraSynapse or athletic groups, or school groups? Yes [...] 05/31/2024 [facility] - Occupational Stress Questionnaire Answer [...] EDT Office Visit [facility] Maxim[place] Zendejas 112 [facility] 110 [place] [address] Renny Hansen MD 112 [facility] 110 [place] [address] documented as of this encounter Procedures Procedure Name Priority Date/Time Associated Diagnosis Comments FL UPPER GI W AIR* 08/08/2024 6: 31 AM EST documented in this encounter Results * FL UPPER GI W AIR* (08/08/2024 6:31 AM EST) Anatomical Region Laterality Modality Radiographic Jayashree ging 08/08/2024 6:31 AM EST Narrative 08/08/2024 6:33 AM EST The [address] [address] Fluoroscopy Report Signed Patient: BREANN HERRMANN MR#: [id number] : 1945 Acct:[id number] Age/Sex: 78 / F ADM Date: 08/07/24 Loc: [place] Attending Dr: RENNY HANSEN Ordering Physician: RENNY HANSEN Date of Service: 08/07/24 Procedure(s): FL upper GI w air Accession Number(s): [id number] cc: RENNY HANSEN The [place] [address] Patient Name: BREANN HERRMANN MRN: [id number] date: 1945 Sex: F Assigned Patient Location: [place] Current Patient Location: Accession/Order Number: [id number] Exam Date: 08/07/2024 08:45 Report Date: 08/08/2024 [...] M.D. Signed By: 08/08/2433 DD/ 0 TD/TT: Police Magistrate: Procedure Note Radiology, Radiologist, MD - 08/08/2024 [place] [address] Fluoroscopy Report Signed Patient: BREANN HERRMANN TMR#: [id number] : 8Acct:[id number] Age/Sex: 78 / FADM Date: 08/07/24 Loc: [place] Attending Dr: RENNY HANSEN Ordering Physician: RENNY HANSEN Date of Service: 08/07/24 Procedure(s): FL upper GI w air Accession Number(s): [id number] cc: RENNY HANSEN The [address] [address] Patient Name: BREANN HERRMANN MRN: [id number] date: 1945 Sex: F Assigned Patient Location: [place] Current Patient Location: Accession/Order Number: [id number] Exam Date: 08/07/2024 08:45 Report Date: 08/08/2024 [...] Delgado M.D. Signed By:08/08/24632 DD/ 0 TD/TT: Police Magistrate: Renny Hansen MD IMG XR PROCEDURES Final Result documented in this encounter Visit Diagnoses Not on filedocumented in this encounter Additional Health Concerns Assessment Noted Time PHQ-9 Depression Total Score: 1 09/06/20 23 2:00 PM EST documented as of this encounter Care Teams Salvage Repairer Relationship Specialty Start Date End Date Renny Hansen MD [address] [facility] 110 [place] [address] PCP - General Internal Medicine 09/19/24 Renny Hansen MD [address] [facility] 110 [place] [address] PCP - Medical [place] 09/12/2409/11 Jazmín Calvillo NP Nurse Practitioner Family Medicine 05/17/24 09/18/24 Cindi Jenkins, PAPERHANGER CONTRACTOR [address] [place] [address] Books Binder Family Medicine 11/06/24 12/05/24 Lisa Ramirez LPN 112 [facility] 110 [place] [address] 12/05/24 documented as of this encounter
--- OUTSIDE RECORDS SUMMARY | 2025-04-24 13:09 | XMS_ITS | Encounter Summary ---
Author Organization [facility] Address [address] [place] [address] Care Team Providers Care Water Control Supervisor Name Role Phone Paulette Johnson MD Primary Care Provider [phone] Shaikh BEREKET Denis Primary Care Provider [phone] Renny Hansen MD Primary Care Provider [phone] Balta Cardenas DO Unavailable [phone] Encounter Details Date Type Department Care Team (Late st Contact Info) Description 04/28/2022 Orders Only [facility] Family Medicine [address] [place] [address] Roopa Mensah MA Social History [...] [facility] [address] [place] [address] Ortega Hines MD [address] [facility] [address] documented as of this encounter Visit Diagnoses Not on filedocumented in this encounter Care Teams Water Control Supervisor Relationship Specialty Start Date End Date Paulette Johnson MD [address] PCP - General 05/03/22 07/04/23 Shaikh Denis MD [address] PCP - General Family Medicine 07/05/23 07/17/24 Renny Hansen MD 112 [place] [facility] 110 [place] [address] PCP - General Internal Medicine 07/18/24 Balta Cardenas DO [address] [place] [address] Referring Physician 11/15/24 documented as of this encounter
--- OUTSIDE RECORDS SUMMARY | 2025-04-24 13:09 | XMS_ITS | Encounter Summary ---
Author Organization [facility] Address [address] [place] [address] Care Team Providers Care Fire Protection Specialist Name Role Phone Jazmín Calvillo NP Unavailable [phone] Renny Hansen MD Primary Care Provider [phone] Renny Hansen MD Unavailable [phone] Cindi Jenkins TUBULAR PRODUCTS FABRICATOR Unavailable Lisa Ramirez MILITARY PAY TECHNICIAN Unavailable Encounter Details Date Type Department [...] week 08/30/2023 How often do you attend synagogue or gnosticist serv ices? Patient declined 08/30/2023 Do you [...] EDT Office Visit [facility]endejas [address] [facility] 110 [place] [address] Renny Hansen MD 112 [facility] 110 [place] [address] documented as of this encounter Procedures Procedure Name Priority Date/Time Associated Diagnosis Comments CT SHOULDER LEFT W IV CONTRAST 06/28/2024 8:42 AM EDT documented in this encounter Results * CT shoulder left w IV contrast (06/28/2024 8:42 AM EDT) Anatomical Region Laterality Modality Upper Extremities, Shoulder Left Comp uted Tomography 06/28/2024 8:42 AM EDT Narrative 06/28/2024 8:45 AM EDT The [address] [address] [address] Scan Report Signed Patient: BREANN STARKS MR#: [id number] : 1945 Acct:[id number] Age/Sex: 78 / F ADM Date: 06/26/24 Loc: CT Attending Dr: Channing Devlin M.D. Ordering Physician: Channing Devlin M.D. Date of Service: 06/26/24 Procedure(s): CT Shoulder LT w/ Con Accession Number(s): [id number] cc: RENNY HANSEN [place] [id number] Patient Name: BREANN STARKS MRN: [facility]:[id number] date: 1945 Sex: F Assigned Patient Location: CT Current Patient Location: Accession/Order Number: [id number] Exam Date: 06/26/2024 14:58 Report Date: 06/28/2024 [...] Rob Jurado M.D. Signed By: 06/28/2445 DD/ 0842 TD/TT: Cable Tower Operator: Procedure Note Radiology, Radiologist, - 06/28/[address] [address] [address] Scan Report Signed Patient: BREANN STARKS TMR#: [id number] : 8Acct:[id number] Age/Sex: 78 / FADM Date: 06/26/24 Loc: CT Attending Dr: Non-Staff Physician Magui Ordering Physician: Channing Devlin M.D. Date of Service: 06/26/24 Procedure(s): CT Shoulder LT w/ Con Accession Number(s): [id number] cc: RENNY HANSEN [address] [address] Patient Name: BREANN STARKS MRN: [id number] date: 1945 Sex: F Assigned Patient Location: CT Current Patient Location: Accession/Order Number: [id number] Exam Date: 06/26/2024 14:58 Report Date: 06/28/2024 [...] By: Rob Jurado M.D. Signed By:06/28/2445 DD/ 1 TD/TT: Cable Tower Operator: us Generic External Data Provider IMG CT PROCEDURES Final Result documented in this encounter Visit Diagnoses Not on filedocumented in this encounter Additional Health Concerns Assessment Noted Time PHQ-9 Depression Total Score: 1 09/06/20 23 2:00 PM EST documented as of this encounter Care Teams Fire Protection Specialist Relationship Specialty Start Date End Date Renny Hansen MD [address] [facility] [address] [place] [address] PCP - General Internal Medicine 09/19/24 Renny Hansen MD [address] [facility] [address] [place] [address] PCP - Medical [facility] 09/12/2409/11 Jazmín Calvillo NP Nurse Practitioner Family Medicine 05/17/24 09/18/24 Cindi Jenkins, GIDEON [address] [place] [address] Independent Living Advisor Family Medicine 11/06/24 12/05/24 Lisa Ramirez LPN [address] [facility] [address] [place] [address] 12/05/24 documented as of this encounter
--- OUTSIDE RECORDS SUMMARY | 2025-04-24 13:09 | XMS_ITS | Clinical Summary ---
Author Organization [facility] Address [id number] [address] [place] [address] Care Team Providers Care Seaming Inspector Name Role Phone Unavailable Primary Care Provider [...] Medical Devices Not on file Insurance MEDICARE [facility]
--- OUTSIDE RECORDS SUMMARY | 2025-04-24 13:09 | XMS_ITS | Encounter Summary ---
Author Organization [facility] Address [address] [place] [address] Care Team Providers Care Mall Plant Caretaker Name Role Phone Jazmín Calvillo BRILLIANDEER LOPPER Unavailable [phone] Renny Hansen MD Primary Care Provider [phone] Renny Hansen MD Unavailable [phone] Cindi Jenkins TEAM LEAD Unavailable [phone] Lisa Ramirez ENGINEERING AIDE Unavailable Encounter Details Date Type Department Care Team (Late st Contact Info) Description 07/05/2024 Abstract [facility] [address] [place] [address] Wesley Long MD [address] [place] [address] Social History Tobacco Use Types Packs/Day Years [...] How often do you attend scientology or scientologist serv ices? Patient declined 08/30/2023 [...] Visit [facility] [place] Zendejas [address] [facility] [address] [place] [address] Renny Hansen MD [address] [facility] [address] [place] [address] documented as of this encounter Visit Diagnoses Not on filedocumented in this encounter Additional Health Concerns Assessment Noted Time PHQ-9 Depression Total Score: 1 09/06/20 23 2:00 PM EST documented as of this encounter Care Teams Mall Plant Caretaker Relationship Specialty Start Date End Date Renny Hansen MD [address] [facility] [address] [place] [address] PCP - General Internal Medicine 09/19/24 Renny Hansen MD [address] [facility] [address] [place] [address] PCP - Medical [place] 09/12/2409/11 Jazmín Calvillo NP Nurse Practitioner Family Medicine 05/17/24 09/18/24 Cindi Jenkins, TEAM LEAD [address] [place] [address] Artificial Insemination Technician Family Medicine 11/06/24 12/05/24 Lisa Ramirez LPN [address] [facility] [address] [place] [address] 12/05/24 documented as of this encounter
--- OUTSIDE RECORDS SUMMARY | 2025-04-24 13:09 | XMS_ITS | Patient Health Record ---
Author Organization [facility] Address [address] [place] [address] Care Team Providers Care Document Control Coordinator Name Role Phone SHAIKH DOMINGUEZ Primary Care Provider James Garcia Unavailable [phone] Reason For Referral No Information Plan Of Treatment Pending Test Test Name Order Date MRI : Shoulder W/O Contrast Left - 73334 03/05/2024 ORDERS 03/19/2024 Chest 2 views - [id number] 03/19/2024 Insurance Providers Payer Name Payer Address Payer Phone Subscriber Number Group Number Insured Name Patient Relationship to Insured Coverage Start Date Coverage End Date Medicare [employer] [address] [facility] [place] [phone] [id number] MAXIMUS HERRMANN Self - patient is the insured
--- OUTSIDE RECORDS SUMMARY | 2025-04-24 13:09 | XMS_ITS | Encounter Summary ---
Author Organization [facility] Address [address] [place] [address] Care Team Providers Care Assistant Corporation Counsel Name Role Phone Jazmín Calvillo SPECIAL EDUCATION ADMINISTRATOR Unavailable [phone] Renny Hansen MD Primary Care Provider [phone] Renny Hansen MD Unavailable [phone] Cindi Jenkins AUTOMATIC GRINDER OPERATOR Unavailable [phone] Lisa Ramirez WELT INSOLE CHANNELER Unavailable Encounter Details Date Type Department Care Team (Late st Contact Info) Description 07/25/2024 Abstract [facility] [address] [place] [address] Wesley Long MD [address] [place] [address] Social History Tobacco Use Types Packs/Day Years [...] How often do you attend temple or sikhism serv ices? Patient declined 08/30/2023 [...] Recorded Patient Health Questionnaire-2 Score 0 05/31/2024 [facility] - Occupational [...] Visit [facility] [place] Zendejas [address] [facility] [address] [place] [address] Renny Hansen MD [address] [facility] [address] [place] [address] documented as of this encounter Visit Diagnoses Not on filedocumented in this encounter Additional Health Concerns Assessment Noted Time PHQ-9 Depression Total Score: 1 09/06/20 23 2:00 PM EST documented as of this encounter Care Teams Assistant Corporation Counsel Relationship Specialty Start Date End Date Renny Hansen MD [address] [facility] [address] [place] [address] PCP - General Internal Medicine 09/19/24 Renny Hansen MD [address] [facility] [address] [place] [address] PCP - Medical [place] 09/12/2409/11 Jazmín Calvillo NP Nurse Practitioner Family Medicine 05/17/24 09/18/24 Cindi Jenkins, AUTOMATIC GRINDER OPERATOR [address] [place] [address] Choir Director Family Medicine 11/06/24 12/05/24 Lisa Ramirez LPN [address] [facility] [address] [place] [address] 12/05/24 documented as of this encounter
--- OUTSIDE RECORDS SUMMARY | 2025-04-24 13:16 | XMS_ITS | CCD ---
Author Organization [facility] Care Team Providers Care Button Maker And Installer Name Role Phone ZANE MCGUIRE Admitting Unavailable DMITRIY HENNESSY Referring Unavailable LUISANA JOHNSON Primary Care Unavailable ZANE MCGUIRE Attending Unavailable DMITRIY HENNESSY Surgeon Unavailable ND Procedure Practitioner Unavailab Hong Adler Unavailable JOHNSON ., DR LUISANA Jarquin Primary Care Unavailable JOHNSON ., DR LUISANA Jarquin Admitting Unavailable JOHNSON ., DR LUISANA Jarquin Attending Unavailable JOHNSON ., DR LUISANA Jarquin Consulting Unavailable JOHNSON ., DR LUISANA Jarquin Primary Care Unavailable FAWWAD, ASHU H Attending Unavailable FAWWAD, SAHU H Admitting [...] Admitting Unavailable RIVER ., KAYLEY Attending Unavailable [place], DR HONG Morgan Consulting Unavailable JOHNSON ., [...] Primary Care Unavailable FAWMADHURI, H Attending Unavailable CIRA, H Admitting Unavailable SAMSA ., LUIZ Admitting Unavailable SAMSA ., LUIZ Attending Unavailable SAMSA ., LUIZ Consulting Unavailable JOHNSON ., DR LUISANA Jarquin Primary Care Unavailable THANG Clement Attending Provider MD Santos Denisikh Primary Care Provider THANG Clement Attending Provider Shaikh Denis MD Primary Care Provider [phone] Jair ALEXANDER Attending Unavailable SHAIKH DENIS Referring Unavailable Jair ALEXANDER Attending Unavailable MD Cira [facility] Primary Care Provider DO James Jones Attending Provider YOLY Cruz Attending Provider [phone] Luisana Johnson MD Primary Care Provider Pedro Pablo Cruz MD Unavailable LUISANA JOHNSON Primary Care Unavailable BOO BUCHANAN Attending Unavailable PEDRO PABLO CRUZ Referring Unavailable LUISANA JOHNSON Primary Care Unavailable BOO BUCHANAN Referring Unavailable Wesley Long MD Primary Care Provider [phone] Monster Calvillo NP Unavailable [phone] Shaikh Denis MD Primary Care Provider Renny Hansen MD Primary Care Provider Pedro Pablo Cruz PA-C Attending Provider [phone] Renny Hansen II Primary Care Provider Anthony FREDERICK, Pedro Pablo Attending Provider [phone] Tyrone ARMENTA Renny Referring Provider Tre FITCH, Katharina Gale Attending Provider Dmitriy Duque DO Attending Provider Sakina Cardenas DO Attending Provider [phone] Renny Hansen II Referring Provider [phone] Tre FITCH, Katharina Gale Attending Provider Renny Hansen MD Unavailable Cindi Cordova Unavailable Lisa Ramirez LPN Unavailable Unavailable Giedraitis , Andrius Vytautwilma Attending Unavailable Giedraitis , Andrius Vytautas Attending Unavailable Giedraitis , Andrius Vytautas Attending Unavailable Giedraitis , Andrius Vytautas Attending Unavailable Giedraitis , Andrius Vytautas Attending Unavailable Giedraitis , Andrius Vytautas Attending Unavailable Giedraitis , Andrius Vytjoselito Attending Unavailable DEREK HOLT Attending Unavailable JAIR FLORIAN Attending Unavailable JAIR FLORIAN Attending Unavailable DMITRIY HENNESSY Referring Unavailable DEREK HOLT Attending Unavailable DEREK HOLT Referring Unavailable KOLTON ALTMAN Attending Unavailable KOLTON ALTMAN Attending Unavailable KOLTON ALTMAN Attending Unavailable DMITRIY HENNESSY Referring Unavailable DMITRIY HENNESSY Referring Unavailable DEREK HOLT Attending Unavailable SAKINA CARDENAS Referring Unavailable StepSakina lawler Jr Admitting Unavailable Sakina Cardenas Jr Attending Unavailable Renny Hansen Primary Care Unavailable Katharina [place] Admitting Unavail able Katharina [place] Attending Unavail able Renny Hansen Referring Unavailable Renny Hansen Primary Care Unavailable James Jones Admitting Unavailable James Jones Attending Unavailable Shaikh Denis Primary Care Unavailable James Jones Admitting Unavailable James Jones Attending Unavailable Cira Sahu Primary Care Unavailable Pedro Pablo Cruz Admitting Unavailable Pedro Pablo Cruz Attending Unavailable Shaikh Denis Primary Care Unavailable Pedro Pablo Cruz Admitting Unavailable Pedro Pablo Cruz Attending Unavailable Renny Hansen Primary Care Unavailable Dmitriy Duque Admitting Unavailable Dmitriy Duque Attending Unavailable Renny Hansen Primary Care Unavailable Lisa Ramirez LPN Unavailable DMITRIY DUQUE Attending Unavailable RENNY HANSEN Attending Unavailable JR. ZAC, SAKINA Ovalle Attending UnavailRENNY Richard Referring Unavailable JR. ZAC, SAKINA Ovalle Attending Unavaila RENNY Barnhart Attending Unavailable RENNY HANSEN Attending Unavailable ELEANOR DUMONT Attending Unavailable JR. ZAC, SAKINA Ovalle Attending Unavaila MONSTER Johnson Attending UnavailRENNY Narayan Attending Unavailable ELEANOR DUMONT Attending Unavailable RENNY HANSEN Attending Unavailable RENNY HANSEN Attending Unavailable SALOME CID Attending Unavailable RENNY HANSEN Referring Unavailable LUISANA LEAL Attending Unavailable Allergies Allergy Classification Reported Allergen(s) Allergy Type Date of Onset Reaction(s) Facility NSAIDs (1 source) meloxicam; Translations: [Mobic] Drug Allergy [facility] Repository Unclassified (1 source) No Known Medication Allergies; Translations: [No Known Medication Allergies] Propensity to adverse reactions (disorder) [facility] Repository (1 source) novacaine; Translations: [novacaine] Propensity to adverse reactions (disorder) 2 [facility] Repository (20 sources) NSAIDs Propensity to adverse reactions 4 HEART [facility] (7 sources) Adhesive agent; Translations: [adhesive] Allergy to substance [address] [facility] (4 sources) NSAIDS (Non-Steroidal Anti-Inflamma; Translations: [NSAIDS (Non-Steroidal Anti-Inflamma] Allergy to substance [address] [facility] (20 sources) Digoxin Drug Allergy 4 [facility] Work Phone: (20 sources) Wound Dressing Adhesive Drug Allergy 4 [facility] Medications Current Medications Medication Drug Class(es) Dates Sig (Normalized) Sig (Original) 8 hr acetaminophen 650 mg extended release oral tablet (20 sources) Start: 09-25-2024 take 1 tablet by mouth every twelve hours Acetaminophen (Tylenol Arthritis Pain) 650 mg tablet extended release Active 650 MG PO Every 12 hours September 25, 2024 12:00am End: 04-18-2025 take 2 tablets by mouth every six hours for pain acetaminophen (Tylenol) 500 MG tablet Indications: Axillary lymphadenopathy , Left arm pain Take 1,000 mg by mouth every 6 (six) hours if needed for mild pain 04/18/2025 Discontinued (Other) acetaminophen 325 mg / HYDROcodone bitartrate 5 mg oral tablet (20 sources) Opioid Agonist Start: 06-21-2024 take 1 tablet by mouth in the morning, then take 1 tablet by mouth in the evening, then take 1 tablet by mouth at bedtime HYDROcodone-acetaminophen (Alcove) 5-325 MG tablet Take 1 tablet by mouth in the morning and 1 tablet in the evening and 1 tablet before bedtime. 06/21/2024 Active Start: 04-11-2024 End: 06-15-2024 take 1 tablet by mouth three times daily as needed for pain HYDROcodone-acetaminophen (Alcove) 5-325 MG tablet Indications: Chronic left shoulder pain Take 1 tablet by mouth 3 (three) times a day as needed for severe pain 90 tablet 05/16/2024 06/15/2024 Active Start: 03-01-2024 take 1 tablet by julia th twice daily acetaminophen-hydrocodone 325 mg-5 mg or al tablet 1 tab(s), Oral, BID, Refill(s) 0 Start Date: 03/01/24 Status: Ordered albuterol 0.833 mg/ml / ipratropium bromide 0.167 mg/ml inhalation solution (20 sources) Anticholinergic, beta2-Adrenergic Agonist Start: 05-25-2024 End: 04-18-2025 ipratropium-albuterol (Duo-Neb) 0.5-2.5 mg/3 mL nebulizer solution Indications: Chronic obstructive pulmonary disease, unspecified COPD type (HCC) Take 3 mL by nebulization in the morning and 3 mL at noon and 3 mL in the evening and 3 mL before bedtime. 150 mL 2 04/18/2025 Active amoxicillin 875 mg / clavulanate 125 [...] sources) Factor Xa Inhibitor Start: 05-05-2023 End: 08-07-2025 take 1 tablet by mouth in the morning apixaban (Eliquis) 5 MG tablet Indications: Persistent atrial fibrillation (HCC) Take 1 tablet (5 mg) by mouth in the morning and 1 tablet (5 mg) before bedtime. 180 tablet 1 02/08/2025 08/07/2025 Active baclofen 10 mg oral tablet (20 [...] Active Start: 03-01-2024 take 1 tablet by julia th three times daily baclofen 10 mg [...] Active Start: 01-30-2024 take 1 tablet by julia th once daily Natural Vitamin D-3 125 MCG (5000 UT) tablet Indications: Vitamin D deficiency TAKE 1 TABLET BY MOUTH EVERY DAY 90 tablet 1 01/30/2024 Active Start: 11-16-2023 Cholecalcifero l (Vitamin D3) 125 mcg (5,000 unit) tablet Active 5000 UNIT PO November 16, 2023 12:00am take 1 tablet by julia th once daily in the morning Cholecalciferol, [...] 16, 2023 12:00am take 1 tablet by julia th once daily flecainide (Tambocor) 50 MG [...] completed) Start: 03-01-2024 take 1 tablet by julia th once daily Lasix 40 mg Tab 40 mg = 1 tab(s), Oral, Daily, Refills(s) 0 Start Date: 03/01/24 Status: Ordered take 1 tablet by julia th every twenty-four hours Furosemide 20 MG [...] Active hydrocortisone valerate 2 mg/ml topical cream (20 sources) Corticosteroid Start: 10-17-2024 End: 04-18-2025 [facility] 0.2 % cream Indications: Phlebitis of left upper extremity Apply topically 2 (two) times a day 45 g 1 10/17/2024 04/18/2025 Discontinued (Therapy completed) Multiple Vitamins-Minerals (CENTRUM SILVER 50+WOMEN PO) (20 [...] / nitrofurantoin, monohydrate 75 mg oral capsule (4 sources) Nitrofuran Antibacterial Start: 04-24-2025 End: 05-01-2025 take 1 capsule by mouth in the morning nitrofurantoin, macrocrystal-monoh ydrate, (Macrobid) 100 MG capsule Indications: Hematuria, unspecified type Take 1 capsule (100 mg) by mouth in the morning and 1 capsule (100 mg) before bedtime. Do all this for 7 days. 14 capsule 04/24/2025 05/01/2025 Active Start: 09-19-2024 End: 09-26-2024 take 1 capsule by mouth in the morning nitrofurantoin, macrocrystal-monohydrate , (Macrobid) 100 MG capsule Indications: Acute cystitis with hematuria Take 1 capsule (100 mg) by mouth in the morning and 1 capsule (100 mg) before bedtime. Do all this for 7 days. 14 capsule 09/19/2024 09/26/2024 Active omeprazole 40 mg delayed release oral capsule (20 sources) Proton Pump Inhibitor Start: 01-18-2025 take 1 capsule by mouth once daily omeprazole (PriLOSEC) [address] capsule Indications: Peptic ulcer, site unspecified, unspecified as acute or chronic, without hemorrhage or perforation , Peptic ulcer Take 1 capsule (40 mg) by mouth Daily 100 capsule 3 01/18/2025 Active Start: 02-15-2023 take 1 capsule by mo ut once daily omeprazole (PriLOSEC) [address] capsule Indications: Peptic ulcer, site unspecified, unspecified as acute or chronic, without hemorrhage or perforation , Peptic ulcer Take 1 capsule (40 mg) by mouth Daily 90 capsule 1 07/09/2024 Active take 1 capsule by [facility] every twenty-four hours Omeprazole 40 MG 1 capsule Orally Once a day Active penicillin v potassium 500 mg oral tablet (13 sources) penicillin v potassium (Veetid) 500 MG [...] with food Orally Once a day Active Respiratory Therapy Supplies (Nebulizer/Tubing/Mout hpiece) kit (5 sources) Start: 04-18-20 Respiratory Therapy Supplies (Nebulizer/Tubing/Julia thpiece) kit Indications: Chronic obstructive pulmonary disease, unspecified COPD type (HCC) 1 each See administration instructions Use daily as needed per instructions on medication. 1 kit 04/18/2025 Active rOPINIRole 0.5 mg oral tablet (9 sources) Nonergot Dopamine Agonist Start: 02-19-20 End: 02-19-20 26 take 1 tablet by mouth at mealtime rOPINIRole (Requip) 0.5 MG tablet Indications: Restless Leg Syndrome Take 1 tablet (0.5 mg) by mouth in the evening. Take with meals 30 tablet 11 02/18/2025 02/18/2026 Active saccharomyces boulardii 250 mg oral capsule (5 sources) take 1 capsule by mouth in the morning saccharomyces boulardii (Florastor) 250 MG capsule Take 250 mg by mouth in the morning and 250 mg before bedtime. Active spironolactone 50 mg oral tablet (20 [...] Active Start: 03-01-2024 take 1 capsule by mo ut once daily verapamil 180 mg Cap-ER 180 mg = 1 cap(s), Oral, Daily, Refills(s) 0 Start Date: 03/01/24 Status: Ordered Start: 11-16-2023 take 1 capsule by mo ut every twenty-four hours Verapamil 180 mg capsule,ext rel. pellets 24 hr Active MG PO November 16, 2023 12:00am Start: 02-14-2023 End: 12-17-2024 take 1 capsule by mouth every twenty-four hours in the morning verapamil ER (Verelan) 180 MG 24 hr capsule Take 360 mg by mouth in the morning. 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; [...] disease (20 sources) Atherosclerotic heart disease of [place] coronary artery without angina pectoris; Translations: [Coronary [...] unspecified] 08-24-2024 Episodic Disorders of lipid metabolism (10 sources) Hyperlipidemia, unspecified; Translations: [Pure hypercholesterolemia, unspecified] [...] 09-06-2023 Chronic Genitourinary symptoms and ill-defined conditions (4 sources) Scalding pain on urination ; Translations: [...] Encounter for therapeutic drug level monitoring; [facility]ations: [facility] Onset: 3 Episodic Other aftercare (1 source) correction (current) use of anticoagulants; Translations: [SUCTION WORKER CURRNT USE 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] Onset: 3 Episodic Other aftercare (1 source) Other group home (current) drug therapy; Translations: [OTH SUCTION WORKER CURRENT DRUG THERAPY] Onset: 3 Episodic Other [...] [Other fecal abnormalities] Onset: 4 Episodic Other hematologic conditions (1 source) Other specified abnormalities of plasma proteins; Translations: [OTH SPEC ABNORM PLASMA PROTEINS] Onset: 3 Episodic Other hereditary and degenerative nervous system conditions (2 sources) Restless legs; Translations: [Restless legs syndrome] 02-18-2025 Chronic Other injuries and conditions due to external [...] chronic pain] Chronic Other nervous system disorders (14 sources) Chronic low back pain; Translations: [Other chronic pain] Onset: 3 09-06-2023 Chronic Other nutritional; endocrine; [...] body structures] Onset: 4 07-05-2024 Chronic Other upper respiratory infections (9 sources) Acute [...] apnea (adult) (pediatric)] Onset: 4 07-24-2024 Chronic Screening and history of mental health [...] chronicity 10-17-2024 Unclassified (2 sources) PACEMAKER Onset: Urinary tract infections (2 sources) Acute cystitis; [...] sources) Dysphagia; Translations: [Dysphagia, unspecified] Episodic Other gastrointestinal disorders (6 sources) Occult blood in stools; Translations: [Other fecal abnormalities] Onset: 09-24-2024 03-01-2024 Episodic Other inflammatory condition of skin (4 [...] 09-06-2023 09-06-2023 Episodic Other non-traumatic joint disorders (12 sources) Pain in left shoulder; Translations: [Pain in joint, shoulder region] Onset: 05-02-2024 05-22-2024 Episodic Other non-traumatic joint disorders (1 source) Chronic pain of left upper limb; Translations: [Pain in left shoulder] 05-16-2024 Episodic Other screening for suspected conditions (not mental disorders or infectious disease) (15 sources) Abnormal coagulation profile; Translations: [Encounter for screening mammogram for malignant neoplasm of breast] Onset: 02-24-2022 Episodic Residual codes; unclassified (20 sources) Edema; Translations: [Edema, unspecified] Onset: 01-12-2012 09-06-2023 Episodic Residual codes; unclassified (7 sources) H/O: Disorder; Translations: [Personal history of other specified conditions] Onset: 03-02-2024 Episodic Spondylosis; intervertebral disc disorders; other back [...] Test Name Value Interpretation Reference Range Facility Urinalysis macro (dipstick) panel (U)on 04-24-2025 Bilirubin, UA Negative Negative - 4(70) +++ mg/dL [facility] Blood, UA Positive Negative - 50 Shadi/mcL [facility] Clarity, UA Clear [facility] Color, UA Yellow [facility] Glucose, UA Negative Negative - 1999(110) ++++ mg/dL [facility] Interpretation and review of laboratory results Abnormal [facility] Ketones, UA Negative Negative - 160(16) ++++ mg/dL [facility] Leukocytes, UA Negative Negative - 500+++ Rosette/mcL [facility] Nitrite, UA Negative Negative - Positive [facility] pH, UA 6 5 - 9 [facility] Protein, UA Negative Negative - 2000(20) ++++ mg/dL [facility] Spec Grav, UA 1.05 1 - 1.03 [facility] Urobilinogen, UA 0.2 0.2 - 12 mg/dL [facility] ALL BASIC METABOLIC PANELon 02-21-2025 Anion gap [Moles/Vol] 13.7 mmol/L [facility] Calcium [Mass/Vol] 9.3 mg/dL 8.5 - 10. 1 mg/dL [facility] Chloride [Moles/Vol] 100 mmol/L 98 - 10 7 mmol/L [facility] CO2 [Moles/Vol] 27.6 mmol/L 21.0 - 32.0 mmol/L [facility] Creatinine [Mass/Vol] 0.78 mg/dL 0.55 - 1.02 mg/dL [facility] GFR/1.73 sq M.predicted CKD-EPI (S/P/Bld) [Vol rate/Area] >60 >=60 mL/min/1.73m 2 [facility] Glucose [Mass/Vol] 100 mg/dL 74 - 106 mg/dL [facility] Interpretation and review of laboratory results Abnormal [facility] Potassium [Moles/Vol] 4.3 mmol/L 3.5 - 5.1 mmol/L [facility] Sodium [Moles/Vol] 137 mmol/L 136 - 145 mmol/L [facility] TBH EGFR-NON AF BAR[place]IAN >60 >=60 mL/min/1.73m 2 [facility] Urea nitrogen [Mass/Vol] 22 mg/dL High 7.0 - 18.0 mg/dL [facility] Urea nitrogen/Creatinine [Mass ratio] 28.2 mg/mg [facility] ALL C REACTIVE PROTEINon CRP [Mass/Vol] mg/L NINF - 0.50 mg/dL [facility] No Panel Informationon 02-21 [facility] Follow-Upon 02-20-2025 Follow-Up [id number] Oliver Starks T 1945 F Date Provider Department Center 02/20/2025 JAIR BOLAND [facility] Family History Adopted: Yes Family history unknown: Yes Family Status - Relation Status Age at Mother Father Level of Service:29699 ND OFFICE/OUTPATIENT ESTABLISHED MOD MDM [address] [facility] Orders Onlyon 02-13-2025 Orders Only [id number] Oliver Starks T 1945 Date Provider Department Center 02/13/2025 DMITRIY [facility] CARD [facility] Family History Adopted: Yes Family history unknown: Yes Family Status - Relation Status Age at Mother Father [facility] 38on 01-18-2025 38 I called the patient . Labs are okay. Continue penicillin. Normal [facility] Telephoneon 01-18-2025 Telephone [id number] Oliver Starks T 1945 F Date Provider Department Center 01/18/2025 JAIR BOLAND [facility] INF [facility] Family History Adopted: Yes Family history unknown: Yes Family Status - Relation Status Age at Mother Father [facility] BASIC METABOLIC PANELon 05-0 Anion gap [Moles/Vol] 10 mmol/L Normal 7-20 [facility] Comment on above: Performed By: #### L [id number] #### [facility] ([facility]) [address] [place] [address] Calcium [Mass/Vol] 8.9 mg/dL Normal 8.6-10.3 [facility] Comment on above: Performed By: #### L [id number] #### [facility] ([facility]) [address] [place] [address] Chloride [Moles/Vol] 103 mmol/L Normal 98-107 [facility] Comment on above: Performed By: #### L [id number] #### [facility] ([facility]) [address] [place] [address] CO2 [Moles/Vol] 26 mmol/L Normal 21-31 [facility] Comment on above: Performed By: #### L [id number] #### [facility] ([facility]) [address] [place] [address] Creatinine [Mass/Vol] 0.64 mg/dL Normal 0.60-1.20 [facility] Comment on above: Performed By: #### L [id number] #### [facility] ([facility]) [address] [place] [address] GLOMERULAR FILTRATION RATE ML/MIN/1.73 SQ M.PREDICTED 91.0 mL/min/1.73m*2 Normal >60.0 [facility] Comment on above: Result Comment: The [facility]???s estimated glomerular filtration rate (eGFR) will no [...] of individuals. Performed By: #### L [id number] #### [facility] ([facility]) [address] [place] [address] Glucose [Mass/Vol] 92 mg/dL Normal 70-100 [facility] Comment on above: Performed By: #### L [id number] #### [facility] ([facility]) [address] [place] [address] Potassium [Moles/Vol] 4.1 mmol/L Normal 3.5-5.1 [facility] Comment on above: Performed By: #### L [id number] #### [facility] ([facility]) [address] [place] [address] Sodium [Moles/Vol] 135 mmol/L Low 136-145 [facility] Comment on above: Performed By: #### L [id number] #### [facility] ([facility]) [address] [place] [address] Urea nitrogen [Mass/Vol] 17 mg/dL Normal 7-25 [facility] Comment on above: Performed By: #### L [id number] #### [facility] ([facility]) [address] [place] [address] UREA NITROGEN/CREATININE (MASS RATIO) IN SER/PLAS 26.6 Normal [facility] Comment on above: Performed By: #### L [id number] #### [facility] ([facility]) [address] [place] [address] C-REACTIVE PROTEINon 025 C REACTIVE PROTEIN (MG/L) IN SER/PLAS 6.8 mg/L High <=5.0 [facility] Comment on above: Result Comment: Test ing performed using a new methodology, turbidimetry. Normal ranges have been updated. Old normal range was <8 mg/L. Performed By: #### L [id number] ####[facility] ([facility])[address] [place] [address] CBC WITH AUTO DIFFERENTIALon 01-17-2025 Basophils (Bld) [#/Vol] 0.07 10*3/uL Normal 0.00-0.20 [facility] Comment on above: Performed By: #### L [id number] ####[facility] ([facility])[address] [place] [address] Basophils/100 WBC (Bld) 0.9 % Normal 0.0-1.0 [facility] Comment on above: Performed By: #### L [id number] ####[facility] ([facility])[address] [place] [address] Eosinophils (Bld) [#/Vol] 0.16 10*3/uL Normal 0.00-0.50 [facility] Comment on above: Performed By: #### L [id number] ####[facility] ([facility])[address] [place] [address] Eosinophils/100 WBC (Bld) 2.2 % Normal 0.0-6.0 [facility] Comment on above: Performed By: #### L [id number] ####[facility] ([facility])[address] [place] [address] Erythrocyte distribution width (RBC) [Ratio] 18.4 % High 11.5-15.0 [facility] Comment on above: Performed By: #### L [id number] ####[facility] ([facility])[address] [place] [address] ERYTHROCYTE MEAN CORPUSCULAR HEMOGLOBIN CONCENTRATION (G/DL) BY AUTOMATED 29.6 g/dL Low 32.0-35.0 [facility] Comment on above: Performed By: #### L [id number] ####[facility] ([facility])[address] [place] [address] Hematocrit (Bld) [Volume fraction] 33.1 % Low 36.0-45.0 [facility] Comment on above: Performed By: #### L [id number] ####[facility] ([facility])[address] [place] [address] Hemoglobin (Bld) [Mass/Vol] 9.8 g/dL Low 12.0-15.0 [facility] Comment on above: Performed By: #### L [id number] ####[facility] ([facility])[address] [place] [address] Immature granulocytes (Bld) [#/Vol] 0.02 10*3/uL Normal 0.00-0.20 [facility] Comment on above: Performed By: #### L [id number] ####[facility] ([facility])[address] [place] [address] Immature granulocytes/100 WBC (Bld) 0.3 % Normal 0.0-1.0 [facility] Comment on above: Performed By: #### L [id number] ####[facility] ([facility])[address] [place] [address] Lymphocytes (Bld) [#/Vol] 1.32 10*3/uL Normal 1.20-4.00 [facility] Comment on above: Performed By: #### L [id number] ####[facility] ([facility])[address] [place] [address] Lymphocytes/100 WBC (Bld) 17.9 % Low 20.0-45.0 [facility] Comment on above: Performed By: #### L [id number] ####[facility] ([facility])[address] [place] [address] MCH (RBC) [Entitic mass] 25.1 pg Low 27.0-33.0 [facility] Comment on above: Performed By: #### L [id number] ####[facility] ([facility])[address] [place] [address] MCV (RBC) [Entitic vol] 84.7 fL Normal 82.0-98.0 [facility] Comment on above: Performed By: #### L [id number] ####[facility] ([facility])[address] [place] [address] Monocytes (Bld) [#/Vol] 0.50 10*3/uL Normal 0.10-1.00 [facility] Comment on above: Performed By: #### L [id number] ####[facility] ([facility])[address] [place] [address] Monocytes/100 WBC (Bld) 6.8 % Normal 5.0-12.0 [facility] Comment on above: Performed By: #### L [id number] ####[facility] [place] [address] Neutrophils (Bld) [#/Vol] 5.32 10*3/uL Normal 1.60-7.60 [facility] Comment on above: Performed By: #### L [id number] ####[facility] ([facility])[address] [place] [address] Neutrophils/100 WBC (Bld) 71.9 % Normal 40.0-72.0 [facility] Comment on above: Performed By: #### L [id number] ####[facility] ([facility])[address] [place] [address] NRBC (PER 100 WBCS) BY AUTOMATED COUNT 0.0 % Normal 0 [facility] Comment on above: Performed By: #### L [id number] ####[facility] ([facility])[address] [place] [address] PLATELETS (10*3/UL) IN BLOOD AUTOMATED COUNT 338 10*3/uL Normal 150-400 [facility] Comment on above: Performed By: #### L [id number] ####[facility] ([facility] [place] [address] RBC (Bld) [#/Vol] 3.91 10*6/uL Normal 3.80-5.00 [facility] Comment on above: Performed By: #### L [id number] ####[facility] ([facility])[address] [place] [address] WBC (Bld) [#/Vol] 7.39 10*3/uL Normal 4.00-10.60 [facility] Comment on above: Performed By: #### L [id number] ####[facility] ([facility] [place] [address] Office Visiton 01-17-2025 Follow-up visit [id number] Oliver Starks 1945 F Date Provider Department Center 01/17/2025 SharonCOLEMANFLORIANJAIR [facility] INF Carol Ann Heal Family History Adopted: Yes Family history unknown: Yes Family Status - Relation Status Age at Mother Father Level of Service:64368 ND OFFICE/OUTPATIENT NEW HIGH MDM 60 MINUTES Reason for Visit and Comments: New Patient [632] [facility] Orders Onlyon 01-17-2025 Orders Only [id number] Oliver Starks 1945 F Date Provider Department Center 01/17/2025 MEHREEN BRAY [facility] DERM Carol Ann Heal Family History Adopted: Yes Family history unknown: Yes Family Status - Relation Status Age at Mother Father [facility] 36on 01-07-2025 38 Advised patient to take 25mg of spirolactone. Patient advised she has 50mg tablet and will cut them in 1/2 until they are gone, then she will call for a new script. [facility] Telephoneon 01-07-2025 Telephone [id number] Oliver Starks 1945 F Date Provider Department Center 01/07/2025 KARINA FRIEDMAN [facility] INF Carol Ann Heal Family History Adopted: Yes Family history unknown: Yes Family Status - Relation Status Age at Mother Father [facility] Telephoneon 01-04-2025 Telephone [id number] Oliver Starks 1945 F Date Provider Department Center 01/04/2025 JOSEPH DAWSON AMISH Lubin Family History Adopted: Yes Family history unknown: Yes Family Status - Relation Status Age at Mother Father [facility] US axillaon 01-03-2025 [facility] [place] [address] [place] [address] Ultrasound Report Signed Patient: Breann Starks MR#: [id number] : 1945 Acct:[id number] Age/Sex: 79 / F ADM Date: 01/03/25 Loc: Room: [facility]: Katharina Toledo COMMUNITY SERVICE WORKER Ordering Provider: Juan Monahan II, DO Date of Service: 01/03/25 US/US axilla: R59.0 - Localized enlarged lymph nodes Copies to: Katharina Aj CONSTANTINE Toledo II, DO Left axillary ultrasound INDICATION: Lymphadenopathy [...] Dimitrios Blanco M.D.01/03/2025 3:42 PM Dictation Location: [facility] Tech: Ghazal Wilson Transcribed By: STAR 01/03/25 1542 Dictated By: Dimitrios Blanco MD 01/03/25 1532 Signed By: 01/03/25 1542 Normal [facility] Follow-Upon 01-01-2025 Follow-Up [id number] Oliver Starks 1945 F Date Provider Department Center 01/01/2025 DEREK NEUMANN MP ORTHO MPORTHO Family History Adopted: Yes Family history unknown: Yes Family Status - Relation Status Age at Mother Father Level of Service:47395 ND OFFICE/OUTPATIENT ESTABLISHED LOW MDM 20 MIN (GC) Reason for Visit and Comments: Follow-up [911834] Pain [136] Normal [facility] Office Visiton 12-24-2024 Follow-up visit [id number] Oliver Starks 1945 F Date Provider Department Center 12/24/2024 [id number]-RKKVQAKOLTON ALTMAN Tristian Family History Adopted: Yes Family history unknown: Yes Family Status - Relation Status Age at Mother Father Level of Service:17674 ND OFFICE/OUTPATIENT ESTABLISHED MOD MDM 30 MIN Reason for Visit and Comments: Coronary Artery Disease [187] Hypertension [167057] Congestive Heart Failure [127] Hyperlipidemia [182] 3 month follow up [Other] Normal [facility] ALL BASIC METABOLIC PANELon 12-21-2024 Anion gap [Moles/Vol] 11.7 mmol/L [facility] Calcium [Mass/Vol] 9.1 mg/dL 8.5 - 10. 1 mg/dL [facility] Chloride [Moles/Vol] 100 mmol/L 98 - 10 7 mmol/L [facility] CO2 [Moles/Vol] 27.4 mmol/L 21.0 - 32.0 mmol/L [facility] Creatinine [Mass/Vol] 0.98 mg/dL 0.55 - 1.02 mg/dL [facility] GFR/1.73 sq M.predicted CKD-EPI (S/P/Bld) [Vol rate/Area] >60 >=60 mL/min/1.73m 2 [facility] Glucose [Mass/Vol] 114 mg/dL High 74 - 106 mg/dL [facility] Interpretation and review of laboratory results Abnormal [facility] Potassium [Moles/Vol] 4.1 mmol/L 3.5 - 5.1 mmol/L [facility] Sodium [Moles/Vol] 135 mmol/L Low 136 - 145 mmol/L [facility] TBH EGFR-NON AF BARBADIAN 55 Low >=60 mL/min/1.73m 2 [facility] Urea nitrogen [Mass/Vol] 22 mg/dL High 7.0 - 18.0 mg/dL [facility] Urea nitrogen/Creatinine [Mass ratio] 22.4 mg/mg [facility] C-REACTIVE PROTEINon 025 C REACTIVE PROTEIN (MG/L) IN SER/PLAS 9.6 mg/L High <=5.0 [facility] Comment on above: Result Comment: Test ing performed using a new methodology, turbidimetry. Normal ranges have been updated. Old normal range was <8 mg/L. Performed By: #### L [id number] #### [facility] ([facility]) [address] [place] [address] CBC WITH AUTO DIFFERENTIALon 11-27-2024 Basophils (Bld) [#/Vol] 0.07 10*3/uL Normal 0.00-0.20 [facility] Comment on above: Performed By: #### L [id number] #### [facility] ([facility]) [address] [place] [address] Basophils/100 WBC (Bld) 0.7 % Normal 0.0-1.0 [facility] Comment on above: Performed By: #### L [id number] #### [facility] ([facility]) [address] [place] [address] Eosinophils (Bld) [#/Vol] 0.13 10*3/uL Normal 0.00-0.50 [facility] Comment on above: Performed By: #### L [id number] #### [facility] ([facility]) [address] [place] [address] Eosinophils/100 WBC (Bld) 1.2 % Normal 0.0-6.0 [facility] Comment on above: Performed By: #### L [id number] #### [facility] ([facility]) [address] [place] [address] Erythrocyte distribution width (RBC) [Ratio] 17.0 % High 11.5-15.0 [facility] Comment on above: Performed By: #### L [id number] #### [facility] ([facility]) [address] [facility] [place] [address] ERYTHROCYTE MEAN CORPUSCULAR HEMOGLOBIN CONCENTRATION (G/DL) BY AUTOMATED 30.8 g/dL Low 32.0-35.0 [facility] Comment on above: Performed By: #### L [id number] #### [facility] ([facility]) [address] [facility] [place] [address] Hematocrit (Bld) [Volume fraction] 38.6 % Normal 36.0-45.0 [facility] Comment on above: Performed By: #### L [id number] #### [facility] ([facility]) [address] [place] [address] Hemoglobin (Bld) [Mass/Vol] 11.9 g/dL Low 12.0-15.0 [facility] Comment on above: Performed By: #### L [id number] #### [facility] ([facility]) [address] [place] [address] Immature granulocytes (Bld) [#/Vol] 0.15 10*3/uL Normal 0.00-0.20 [facility] Comment on above: Performed By: #### L [id number] #### [facility] ([facility]) [address] [place] [address] Immature granulocytes/100 WBC (Bld) 1.4 % High 0.0-1.0 [facility] Comment on above: Performed By: #### L [id number] #### [facility] ([facility]) [address] [place] [address] Lymphocytes (Bld) [#/Vol] 2.18 10*3/uL Normal 1.20-4.00 [facility] Comment on above: Performed By: #### L [id number] #### [facility] ([facility]) [address] [place] [address] Lymphocytes/100 WBC (Bld) 20.4 % Normal 20.0-45.0 [facility] Comment on above: Performed By: #### L [id number] #### [facility] ([facility]) [address] [place] [address] MCH (RBC) [Entitic mass] 26.0 pg Low 27.0-33.0 [facility] Comment on above: Performed By: #### L [id number] #### [facility] ([facility]) [address] [place] [address] MCV (RBC) [Entitic vol] 84.5 fL Normal 82.0-98.0 [facility] Comment on above: Performed By: #### L [id number] #### [facility] [address] [place] [address] Monocytes (Bld) [#/Vol] 0.84 10*3/uL Normal 0.10-1.00 [facility] Comment on above: Performed By: #### L [id number] #### [facility] ([facility]) [address] [place] [address] Monocytes/100 WBC (Bld) 7.9 % Normal 5.0-12.0 [facility] Comment on above: Performed By: #### L [id number] #### [facility] ([facility]) [address] [place] [address] Neutrophils (Bld) [#/Vol] 7.33 10*3/uL Normal 1.60-7.60 [facility] Comment on above: Performed By: #### L [id number] #### [facility] ([facility]) [address] [place] [address] Neutrophils/100 WBC (Bld) 68.4 % Normal 40.0-72.0 [facility] Comment on above: Performed By: #### L [id number] #### [facility] ([facility]) [address] [place] [address] NRBC (PER 100 WBCS) BY AUTOMATED COUNT 0.0 % Normal 0 [facility] Comment on above: Performed By: #### L [id number] #### [facility] [address] [place] [address] PLATELETS (10*3/UL) IN BLOOD AUTOMATED COUNT 411 10*3/uL High 150-400 [facility] Comment on above: Performed By: #### L [id number] #### [facility] ([facility]) [address] [place] [address] RBC (Bld) [#/Vol] 4.57 10*6/uL Normal 3.80-5.00 [facility] Comment on above: Performed By: #### L [id number] #### [facility] ([facility]) [address] [place] [address] WBC (Bld) [#/Vol] 10.70 10*3/uL High 4.00-10.60 [facility] Comment on above: Performed By: #### L [id number] #### [facility] ([facility]) [address] [place] [address] Follow-Upon 11-27-2024 Follow-Up [id number] Woyan,Senai da T 1945 F Date Provider Department Center 11/27/2024 DEREK NEUMANN MP ORTHO MPORTHO Family History Adopted: Yes Family history unknown: Yes Family Status - Relation Status Age at Mother Father Level of Service:87065 ND OFFICE/OUTPATIENT ESTABLISHED LOW MDM 20 MIN Reason for Visit and Comments: Follow-up [256158] Normal [facility] Labon 11-27-2024 Lab [id number] Woyan,Senai da T 1945 F Date Provider Department Center 11/27/2024 2244-[facility] MP LAB RESOURCE MP DRAW Medical Pavi Family History Adopted: Yes Family history unknown: Yes Family Status - Relation Status Age at Mother Father Normal [facility] SEDIMENTATION RATEon 025 SEDIMENTATION RATE, ERYTHROCYTE 96 mm/hr High <30 [facility] Comment on above: Performed By: #### L [id number] #### [facility] ([facility]) [address] [place] [address] Orders Onlyon 11-19-2024 Orders Only [id number] Woyan,Senai da T 1945 F Date Provider Department Center 11/19/2024 82Yamile-JAMES ALLEN MP ORTHO MPORTHO Family History Adopted: Yes Family history unknown: Yes Family Status - Relation Status Age at Mother Father Normal [facility] Orders Onlyon 11-16-2024 Orders Only [id number] Woyan,Senai da T 1945 F Date Provider Department Center 11/16/2024 [id number]-NUCVTCOXSXZBCARROL COHEN*MP ORTHO MPORTHO Family History Adopted: Yes Family history unknown: Yes Family Status - Relation Status Age at Mother Father [facility] 36on 11-15-2024 36 Patient was informed and she is going to [facility] and states they do not have a radiologist to do the aspiration for the order sent over by Dr. Holt and patient will have to go somewhere else. Normal [facility] BODY FLUID CULTUREon 025 Bacteria identified Cx Nom (Unsp spec) STREPTOCOCCUS SANGUINIS Abnormal [facility] Comment on above: Result Comment: Isol ated from Broth Culture Streptococcus sanguinis Presumptive Identification Performed By: #### L [id number] ####[facility] ([facility])[address] [place] [address] GRAM STAIN RESULT Normal [facility] Comment on above: Result Comment: Many Polymorphonuclear leukocytes No organisms seen Performed By: #### L [id number] ####[facility] ([facility])[address] [place] [address] Office Visiton 11-13-2024 Follow-up visit [id number] Bob Starksai da T 1945 F Date Provider Department Center 11/13/2024 Kyle-DEREK HOLT MP Family History Adopted: Yes Family history unknown: Yes Family Status - Relation Status Age at Mother Father Level of Service:30819 ND OFFICE/OUTPATIENT NEW LOW MDM 30 MINUTES (25,GC) Reason for Visit and Comments: Pain [136] Normal [facility] Orders Onlyon 11-13-2024 Orders Only [id number] Woyan,Senai da T 1945 F Date Provider Department Center 11/13/[id number]-ZNIXVYSPKMARIELOS MARY MP Family History Adopted: Yes Family history unknown: Yes Family Status - Relation Status Age at Mother Father [facility] 36on 11-08-2024 36 Patient was schedule Normal [facility] 36 Patient needs an elisabet t layla poss infection per dr cardenas. JAVA DEVELOPER ANALYST to dr holt. [facility] Anisocytosis LM Ql (Bld)Orde red By: Sakina Cardenas on 10-24-2024 Anisocytosis Ql (Bld) Anisocytosis [Presence] in Blood by Light microscopy [facility] Basophils Auto (Bld) [#/Vol] Ordered By: Sakina Cardenas on 10-24-2024 Basophils (Bld) [#/Vol] Automated basophil count [facility] Basophils/100 WBC Auto (Bld) Ordered By: Sakina Cardenas on 10-24-2024 Basophils/100 WBC (Bld) Automated basophil % [facility] Basophils/100 WBC Manual cnt (Bld)Ordered By: Sakina Cardenas on 10-24-2024 Basophils/100 WBC (Bld) Basophils/100 leukocytes in Blood by Manual count 0-2 [facility] C reactive protein [Mass/vol ume] in Serum or PlasmaOrdered By: Sakina Cardenas on 10-24-2024 CRP [Mass/Vol] C reactive protein [Mass/volume] in Serum or Plasma High 0.0-0.5 [facility] C-Reactive Proteinon 025 C-Reactive Protein 1.4 mg/dL High 0.0-0.5 [facility] Comment on above: Result Comment: PERF ORMED BY: [place] [address] PATHOLOGIST SWING TYPE LATHE OPERATOR KATHLEEN RAMOS M.D. Performed By: #### C RP #### [facility] [address] [place] [address] CRP [Mass/Vol]on 10-24-2024 C-REACTIVE PROTEIN 1.4 mg/dL High 0.0 - 0.5 mg/dL [facility] Interpretation and review of laboratory results Abnormal [facility] Healthcare [facility] Healthcare Diff and CBCon 10-24-2024 Anisocytosis Ql (Bld) Slight Normal [facility] Comment on above: Performed By: #### D IFF CBC, ESR #### [facility] [address] [place] [address] [place] Basophils/100 WBC (Bld) 2 % Normal 0-2 [facility] Comment on above: Performed By: #### D IFF CBC, ESR #### [facility] [address] Erythrocyte distribution width (RBC) [Ratio] 23.9 % High 11.9-15.3 [facility] Comment on above: Performed By: #### D IFF CBC, ESR #### [facility] [address] Giant Platelet Tally 1 /100{WBC} Normal [facility] Comment on above: Performed By: #### D IFF CBC, ESR #### [facility] [address] [place] [address] Hematocrit (Bld) [Volume fraction] 35.1 % Normal 34.0-46.4 [facility] Comment on above: Performed By: #### D IFF CBC, ESR #### [address] Hemoglobin (Bld) [Mass/Vol] 11.4 g/dL Low 11.8-15.4 [facility] Comment on above: Performed By: #### D IFF CBC, ESR #### [address] Hypochromasia Slight Normal [facility] Comment on above: Performed By: #### D IFF CBC, ESR #### [address] Lymphocytes/100 WBC (Bld) 19 % Normal 18-42 [facility] Comment on above: Performed By: #### D IFF CBC, ESR #### [address] MCH (RBC) [Entitic mass] 26.9 pg Normal 24.7-34.3 [facility] Comment on above: Performed By: #### D IFF CBC, ESR #### [address] MCV (RBC) [Entitic vol] 83.2 fL Normal 80-100 [facility] Comment on above: Performed By: #### D IFF CBC, ESR #### [address] Mean Corpuscular HGB Conc 32.4 g/dL Normal 32.0-35.0 [facility] Comment on above: Performed By: #### D IFF CBC, ESR #### [address] Monocytes/100 WBC (Bld) 6 % Normal 2-11 [facility] Comment on above: Performed By: #### D IFF CBC, ESR #### [facility] [address] Platelet Estimate Normal Normal Normal [facility] Comment on above: Performed By: #### D IFF CBC, ESR #### [facility] [address] Platelet mean volume (Bld) [Entitic vol] 7.0 fL Normal 6.3-10.[address] [facility] Comment on above: Performed By: #### D IFF CBC, ESR #### [address] Platelet Morphology Normal Normal Normal [facility] Comment on above: Performed By: #### D IFF CBC, ESR #### [place] [address] [place] Platelets (Bld) [#/Vol] 403 10*3/uL Normal 150-450 [facility] Comment on above: Performed By: #### D IFF CBC, ESR #### [address] Polychromasia Moderate Normal [facility] Comment on above: Performed By: #### D IFF CBC, ESR #### [facility] [address] RBC (Bld) [#/Vol] 4.21 10*6/uL Normal 3.60-5.00 [facility] Comment on above: Performed By: #### D IFF CBC, ESR #### [facility] [address] [place] [address] RBC morphology finding Nom (Bld) Normal Normal Normal [facility] Comment on above: Performed By: #### D IFF CBC, ESR #### [facility] [address] Segmented neutrophils/100 WBC (Bld) 73 % High 50-70 [facility] Comment on above: Performed By: #### D IFF CBC, ESR #### [facility] [address] WBC (Bld) [#/Vol] 11.0 10*3/uL Normal 3.8-11.6 [facility] Comment on above: Performed By: #### D IFF CBC, ESR #### [facility] [address] Eosinophils Auto (Bld) [#/Vo l]Ordered By: Sakina Cardenas on 10-24-2024 Eosinophils (Bld) [#/Vol] Automated eosinophil count [facility] Eosinophils/100 WBC Auto (Bl d)Ordered By: Sakina Cardenas on 10-24-2024 Eosinophils/100 WBC (Bld) Automated eosinophil % [facility] Erythrocyte Sedimentation Ra aren 10-24-2024 ESR (Bld) [Velocity] 104 mm/h High 0-29 [facility] Comment on above: Result Comment: PERF ORMED BY: [place] [address] PATHOLOGIST SWING TYPE LATHE OPERATOR KATHLEEN RAMOS M.D. Performed By: #### D IFF CBC, ESR #### [facility] [address] [place] [address] Erythrocyte distribution wid th Auto (RBC) [Ratio]Ordered By: Sakina Cardenas on 10-24-2024 Erythrocyte distribution width (RBC) [Ratio] Erythrocyte distribution width [Ratio] by Automated count High 11.9-15.3 [facility] Erythrocyte morphology findi ng [Identifier] in BloodOrdered By: Sakina Cardenas on 10-24-2024 RBC morphology finding Nom (Bld) RBC morphology Normal [facility] Erythrocyte sedimentation ra te by Photometric methodOrdered By: Sakina Cardenas on 10-24-2024 ESR Photometric method (Bld) [Velocity] Erythrocyte sedimentation rate by Photometric method High 0-29 [facility] Giant platelets/100 leukocyt es [Ratio] in Blood by Manual countOrdered By: Sakina Cardenas on 10-24-2024 Giant platelets/100 WBC Manual cnt (Bld) [Ratio] Giant platelets/100 leukocytes [Ratio] in Blood by Manual count [facility] Hematocrit Auto (Bld) [Volum e fraction]Ordered By: Sakina Cardenas on 10-24-2024 Hematocrit (Bld) [Volume fraction] Hematocrit [Volume Fraction] of Blood by Automated count 34.0-46.4 [facility] Hemoglobin [Mass/volume] in BloodOrdered By: Sakina Cardenas on 10-24-2024 Hemoglobin (Bld) [Mass/Vol] Hemoglobin [Mass/volume] in Blood Low 11.8-15.4 [facility] Hypochromia LM Ql (Bld)Order ed By: Sakina Cardenas on 10-24-2024 Hypochromia Ql (Bld) Hypochromia [Presen ce] in Blood by Light microscopy [facility] - Hematology and Cell countson 10-24-2024 Erythrocyte distribution width (RBC) [Ratio] 23.9 % High 11.9 - 15.3 % [facility] ESR (Bld) [Velocity] 104 mm/h High 0 - 29 [facility] Hematocrit (Bld) [Volume fraction] 35.1 % 34.0 - 46.4 % [facility] Hemoglobin (Bld) [Mass/Vol] 11.4 g/dL Low 11.8 - 15.4 g/dL [facility] MCH (RBC) [Entitic mass] 26.9 pg 24.7 - 34.3 pg [facility] MCHC (RBC) [Mass/Vol] 32.4 g/dL 32.0 - 35.0 g/dL [facility] MCV (RBC) [Entitic vol] 83.2 fL 80 - 100 fL [facility] Platelet mean volume (Bld) [Entitic vol] 7 fL 6.3 - 10.7 fL [facility] Platelets (Bld) [#/Vol] 403 10*3/uL 150 - 450 10*3/uL [facility] WBC (Bld) [#/Vol] 11 10*3/uL 3.8 - 11.6 10*3/uL [facility] Laboratory - Urinalysison RBC LM.HPF (Urine sed) [#/Area] 4.21 10*6/uL 3.60 - 5.00 10*6/uL [facility] WBC LM.HPF (Urine sed) [#/Area] 11 10*3/uL 3.8 - 11.6 10*3/uL [facility] Leukocytes [#/volume] correc aristeo for nucleated erythrocytes in Blood by Automated counOrdered By: Sakina Cardenas on 10-24-2024 WBC corrected for nucl RBC Auto (Bld) [#/Vol] Leukocytes [#/volume] corrected for nucleated erythrocytes in Blood by Automated coun 3.8-11.6 [facility] Lymphocytes Auto (Bld) [#/Vo l]Ordered By: Sakina Cardenas on 10-24-2024 Lymphocytes (Bld) [#/Vol] Lymphocytes [#/volume] in Blood by Automated count [facility] Lymphocytes/100 WBC Auto (Bl d)Ordered By: Sakina Cardenas on 10-24-2024 Lymphocytes/100 WBC (Bld) Lymphocytes/100 leukocytes in Blood by Automated count [facility] Lymphocytes/100 WBC Manual c nt (Bld)Ordered By: Sakina Cardenas on 10-24-2024 Lymphocytes/100 WBC (Bld) Lymphocytes/100 leukocytes in Blood by Manual count 18-42 [facility] MCH Auto (RBC) [Entitic mass ]Ordered By: Sakina Cardenas on 10-24-2024 MCH (RBC) [Entitic mass] MCH [Entitic mass] by Automated count 24.7-34.3 [facility] MCHC Auto (RBC) [Mass/Vol]Or dered By: Sakina Cardenas on 10-24-2024 MCHC (RBC) [Mass/Vol] MCHC [Mass/volume] by Automated count 32.0-35.0 [facility] MCV Auto (RBC) [Entitic vol] Ordered By: Sakina Cardenas on 10-24-2024 MCV (RBC) [Entitic vol] MCV [Entitic volume] by Automated count 80-100 [facility] Monocytes Auto (Bld) [#/Vol] Ordered By: Sakina Cardenas on 10-24-2024 Monocytes (Bld) [#/Vol] Automated blood monocyte count [facility] Monocytes/100 WBC Auto (Bld) Ordered By: Sakina Cardenas on 10-24-2024 Monocytes/100 WBC (Bld) Automated monocyte % [facility] Monocytes/100 WBC Manual cnt (Bld)Ordered By: Sakina Cardenas on 10-24-2024 Monocytes/100 WBC (Bld) Monocytes/100 leukocytes in Blood by Manual count 2-11 [facility] Neutrophils Auto (Bld) [#/Vo l]Ordered By: Sakina Cardenas on 10-24-2024 Neutrophils (Bld) [#/Vol] Neutrophils [#/volume] in Blood by Automated count [facility] Neutrophils/100 WBC Auto (Bl d)Ordered By: Sakina Cardenas on 10-24-2024 Neutrophils/100 WBC (Bld) Automated neutrophil % [facility] No Panel Informationon 10-24 Interpretation and review of laboratory results Abnormal [facility] Nucleated erythrocytes [Pres ence] in Blood by Automated countOrdered By: Sakina Cardenas on 10-24-2024 Nucleated RBC Auto Ql (Bld) Nucleated erythrocytes [Presence] in Blood by Automated count [facility] Platelet adequacy [Presence] in Blood by Light microscopyOrdered By: Sakina Cardenas on 10-24-2024 Platelets LM Ql (Bld) Platelet adequacy [Presence] in Blood by Light microscopy Normal [facility] Platelet mean volume Auto (B ld) [Entitic vol]Ordered By: Sakina Cardenas on 10-24-2024 Platelet mean volume (Bld) [Entitic vol] Platelet mean volume [Entitic volume] in Blood by Automated count 6.3-10.7 [facility] Platelet morphology finding [Identifier] in BloodOrdered By: Sakina Cardenas on 10-24-2024 Platelet morphology finding Nom (Bld) Platelet morphology finding [Identifier] in Blood Normal [facility] Platelets Auto (Bld) [#/Vol] Ordered By: Sakina Cardenas on 10-24-2024 Platelets (Bld) [#/Vol] Platelets [#/volume] in Blood by Automated count 150-450 [facility] Polychromasia [Presence] in Blood by Light microscopyOrdered By: Sakina Cardenas on 10-24-2024 Polychromasia LM Ql (Bld) Polychromasia [Presence] in Blood by Light microscopy [facility] RBC Auto (Bld) [#/Vol]Ordere d By: Sakina Cardenas on 10-24-2024 RBC (Bld) [#/Vol] Erythrocytes [#/volume] in Blood by Automated count 3.60-5.00 [facility] Segmented neutrophils/100 WB C Manual cnt (Bld)Ordered By: Sakina Cardenas on 10-24-2024 Segmented neutrophils/100 WBC (Bld) Manual blood segmented neutrophils/100 leukocytes High 50-70 [facility] WBC Auto (Bld) [#/Vol]Ordere d By: Sakina Cardenas on 10-24-2024 WBC (Bld) [#/Vol] Leukocytes [#/volume ] in Blood by Automated count 3.8-11.6 [facility] MM diagnostic mammo BI w/CAD on 10-16-2024 MM diagnostic mammo BI w/CAD [facility] [place] [address] Ultrasound Report Signed Patient: Breann Starks MR#: [id number] : 1945 Acct:[id number] Age/Sex: 78 / F ADM Date: 10/16/24 Loc: [facility] Room: Type: [facility] Attending Dr: Dmitriy Duque DO Ordering Provider: Dmitriy Duque DO Date of Service: 10/16/24 US/US axilla: R92.8 ([id number]) MM/MM diagnostic mammo BI w/CAD: ENLARGED LT [...] Impression dictated by: Francisco J Benton Jr., GriseldaOMeena10/16/2024 2:20 PM Dictation Location: [facility] Tech: Ghazal CannonesKe Barber Transcribed By: STAR 10/16/24 1420 Dictated By: Francisco J Benton Jr, DO 10/16/24 1343 Signed By: 10/16/24 1420 Normal [facility] 36on 10-11-2024 36 Regarding [...] BMP in 1 week. Order faxed to [facility] and printed for patient to warehouse picker at front desk administrator. She verbalized understanding. Normal [facility] CA ECHO DOPPLER COMPLETEon 0 10-09-2024 [place] [address] Cardiology Report Signed Patient: BREANN STARKS MR#: [id number] : 1945 Acct:[id number] Age/Sex: 78 / F ADM Date: 10/09/24 Loc: CARD Attending Dr: Kolton Altman M.D. Ordering Physician: Kolton Altman M.D. Date of Service: 10/09/24 Procedure(s): CA echo doppler complete Accession Number(s): [id number] cc: RENNY HANSEN ; Kolton Altman M.D. Patient Name: BREANN STARKS MR#: [id number] : 1945 Exam Date: 10/09/2024 Ordering Doctor: [...] Area (VTI): 1.49 cm2, 1.49 cm2 Deceleration [place]: 1.68 m/s2 Pressure Half-Time: 622.32 ms Peak [...] by: Sakina Evans (more content not included)... [facility] Radiology, Radiologist, MD - 10/09/[address] [address] Cardiology Report Signed Patient: BREANN STARKS MR#: [id number] : 1945 Acct:[id number] Age/Sex: 78 / F ADM Date: 10/09/24 Loc: CARD Attending Dr: Kolton Altman M.D. Ordering Physician: Kolton Altman M.D. Date of Service: 10/09/24 Procedure(s): CA echo doppler complete Accession Number(s): [id number] cc: RENNY HANSEN ; Kolton Altman M.D. Patient Name: BREANN STARKS MR#: [id number] : 1945 Exam Date: 10/09/2024 Ordering Doctor: [...] Area (VTI): 1.49 cm2, 1.49 cm2 Deceleration [place]: 1.68 m/s2 Pressure Half-Time: 622.32 ms Peak [...] SALAZAR Signed By: 10/09/241846 DD/ 44 TD/TT: Paper Plate Machine Tender: [facility] Radiology Study observation (narrative) [facility] CA ECHO DOPPLER COMPLETEOrde red By: Radiologist Radiology on 10-09-2024 [facility] Work Phone: ALL BASIC METABOLIC PANELon 10-03-2024 Anion gap [Moles/Vol] 12.4 mmol/L [facility] Calcium [Mass/Vol] 9.2 mg/dL 8.5 - 10. 1 mg/dL [facility] Chloride [Moles/Vol] 104 mmol/L 98 - 10 7 mmol/L [facility] CO2 [Moles/Vol] 27.8 mmol/L 21.0 - 32.0 mmol/L [facility] Creatinine [Mass/Vol] 0.73 mg/dL 0.55 - 1.02 mg/dL [facility] GFR/1.73 sq M.predicted CKD-EPI (S/P/Bld) [Vol rate/Area] >60 >=60 mL/min/1.73m 2 [facility] Glucose [Mass/Vol] 97 mg/dL 74 - 106 mg/dL [facility] Potassium [Moles/Vol] 4.2 mmol/L 3.5 - 5.1 mmol/L [facility] Sodium [Moles/Vol] 140 mmol/L 136 - 145 mmol/L [facility] TBH EGFR-NON AF BAR[place] >60 >=60 mL/min/1.73m 2 [facility] Urea nitrogen [Mass/Vol] 16 mg/dL 7.0 - 18.0 mg/dL [facility] Urea nitrogen/Creatinine [Mass ratio] 21.9 mg/mg [facility] ALL LIPID PROFILE (FASTING)o n 10-03-2024 CHOL HDL RATIO 2.2 [facility] Comment on above: 3.3 - 4.4 LOW RISK 4.4 - 7.1 AVERAGE RISK 7.1 - 11.0 MODERATE RISK >11.0 HIGH RISK Cholesterol [Mass/Vol] 130 mg/dL NINF - 200 mg/dL [facility] Cholesterol in HDL [Mass/Vol] 59 mg/dL 40 - 60 mg/dL [facility] Comment on above: > or =60 mg/dl - LOW CARDIOVASCULAR RISK <40 mg/dl - HIGH CARDIOVASCULAR RISK Magnesium [Mass/Vol] 56.8 mg/dL [facility] Comment on above: <100 mg/dl OPTIMAL 100-129 mg/dl NEAR OR ABOVE OPTIMAL 130-159 mg/dl BORDERLINE HIGH 160-189 mg/dl HIGH >190 mg/dl VERY HIGH Magnesium [Mass/Vol] 14.2 mg/dL [facility] Triglyceride [Mass/Vol] 71 mg/dL BANNERF - 150 mg/dL [facility] No Panel Informationon 10-03 [facility] Anisocytosis LM Ql (Bld)Orde red By: Katharina Toledo on 10-02-2024 Anisocytosis Ql (Bld) Anisocytosis [Presence] in Blood by Light microscopy [facility] Basophils Auto (Bld) [#/Vol] Ordered By: Katharina Toledo on 10-02-2024 Basophils (Bld) [#/Vol] Automated basophil count 0.0-0.2 [facility] Basophils/100 WBC Auto (Bld) Ordered By: Katharina Toledo on 10-02-2024 Basophils/100 WBC (Bld) Automated basophil % . [facility] CT shoulder LT w conon 10-02 CT shoulder LT w con [facility] [place] [address] CT Scan Report Signed Patient: Breann Starks MR#: [id number] : 1945 Acct:[id number] Age/Sex: 78 / F ADM Date: 10/02/24 Loc: Room: [facility] Attending Dr: Katharina Toledo COMMUNITY SERVICE WORKER Copies to: Katharina Toledo APRN Ordering Provider: Katharina Toledo COMMUNITY SERVICE WORKER Date of Service: 10/02/24 CT/CT shoulder LT [...] Etienne Rhodes M.D.10/02/2024 4:14 PM Dictation Location: [place] [address] Transcribed By: [facility] 10/02/24 1614 Dictated By: Etienne Rhodes DO 10/02/24 1610 Signed By: 10/02/24 161 Normal [facility] Creatinine (Bld) [Mass/Vol]O rdered By: Katharina Toledo on 10-02-2024 Creatinine [Mass/Vol] Whole blood creati nine measurement 0.6-1.3 [facility] Comment on above: ER/ESD physician is notified/shown all ISTAT results.Critical values may be confirmed by laboratory testing ifdeemed necessary by ER attending doctor. Eosinophils Auto (Bld) [#/Vo l]Ordered By: Katharina Toledo on 10-02-2024 Eosinophils (Bld) [#/Vol] Automated eosinophil count 0.0-0.45 [facility] Eosinophils/100 WBC Auto (Bl d)Ordered By: Katharina Toledo on 10-02-2024 Eosinophils/100 WBC (Bld) Automated eosinophil % . [facility] Erythrocyte distribution wid th Auto (RBC) [Ratio]Ordered By: Katharina Toledo on 10-02-2024 Erythrocyte distribution width (RBC) [Ratio] Erythrocyte distribution width [Ratio] by Automated count High 11.9-15.3 [facility] Erythrocyte morphology findi ng [Identifier] in BloodOrdered By: Katharina Tre on 10-02-2024 RBC morphology finding Nom (Bld) RBC morphology [facility] Ferritinon 10-02-2024 Ferritin [Mass/Vol] 54.8 ng/mL Normal 11.0-306.8 [facility] Comment on above: Result Comment: PERF ORMED BY: [facility] [address] [place] [address] PATHOLOGIST SWING TYPE LATHE OPERATOR KATHLEEN RAMOS M.D. Performed By: #### S CAN CBC, FE and TIBC, ARISTIDES #### [address] Ferritin [Mass/volume] in Se rum or PlasmaOrdered By: Katharina Tre on 10-02-2024 Ferritin [Mass/Vol] Ferritin [Mass/volum e] in Serum or Plasma 11.0-306.8 [facility] Hematocrit Auto (Bld) [Volum e fraction]Ordered By: Katharina Toledo on 10-02-2024 Hematocrit (Bld) [Volume fraction] Hematocrit [Volume Fraction] of Blood by Automated count Low 34.0-46.4 [facility] Hemoglobin [Mass/volume] in BloodOrdered By: Katharina Toledo on 10-02-2024 Hemoglobin (Bld) [Mass/Vol] Hemoglobin [Mass/volume] in Blood Low 11.8-15.4 [facility] Hypochromia LM Ql (Bld)Order ed By: Katharina Toledo on 10-02-2024 Hypochromia Ql (Bld) Hypochromia [Presen ce] in Blood by Light microscopy [facility] ISTAT XRAY CREon 10-02-2024 Creatinine [Mass/Vol] 0.7 mg/dL 0.6 - 1.3 mg/dL [facility] Comment on above: ER/ESD physician is notified/shown all ISTAT results. Critical values may be confirmed by laboratory testing if deemed necessary by ER attending doctor. ISTAT GFR [facility] ISTAT XRay CREon 10-02-2024 Creatinine [Mass/Vol] 0.7 mg/dL Normal 0.6-1.3 [facility] Comment on above: Result Comment: ER/E SD physician is notified/shown all ISTAT results. Critical values may be confirmed by laboratory testing if deemed necessary by ER attending doctor. Performed By: #### I SCRE #### [address] ISTAT GFR >60.0 Normal [facility] Comment on above: Result Comment: PERF ORMED BY: [place] [address] PATHOLOGIST SWING TYPE LATHE OPERATOR KATHLEEN RAMOS M.D. Performed By: #### I SCRE #### [address] Iron [Mass/volume] in Serum or PlasmaOrdered By: Katharina Toledo on 10-02-2024 Iron [Mass/Vol] Iron [Mass/volume] i n Serum or Plasma Low 50-212 [facility] Iron and TIBC Profileon 09-13 % Iron Saturation 8.7 % Low 20-50 [facility] Comment on above: Performed By: #### S CAN CBC, FE and TIBC, ARISTIDES #### [address] Iron [Mass/Vol] 36 ug/dL Low 50-212 [facility] Comment on above: Performed By: #### S CAN CBC, FE and TIBC, ARISTIDES #### [address] Total Iron Binding Capacity 413 ug/dL Normal 255-450 [facility] Comment on above: Performed By: #### S CAN CBC, FE and TIBC, ARISTIDES #### [address] Transferrin [Mass/Vol] 295 mg/dL Normal 203-362 [facility] Comment on above: Performed By: #### S CAN CBC, FE and TIBC, ARISTIDES #### [place] [id number] [facility] Leukocytes [#/volume] correc aristeo for nucleated erythrocytes in Blood by Automated counOrdered By: Katharina Toledo on 10-02-2024 WBC corrected for nucl RBC Auto (Bld) [#/Vol] Leukocytes [#/volume] corrected for nucleated erythrocytes in Blood by Automated coun 3.8-11.6 [facility] Lymphocytes Auto (Bld) [#/Vo l]Ordered By: Katharina Toledo on 10-02-2024 Lymphocytes (Bld) [#/Vol] Lymphocytes [#/volume] in Blood by Automated count 1.00-4.8 [facility] Lymphocytes/100 WBC Auto (Bl d)Ordered By: Katharina Toledo on 10-02-2024 Lymphocytes/100 WBC (Bld) Lymphocytes/100 leukocytes in Blood by Automated count . [facility] MCH Auto (RBC) [Entitic mass ]Ordered By: Katharina Toledo on 10-02-2024 MCH (RBC) [Entitic mass] MCH [Entitic mass] by Automated count 24.7-34.3 [facility] MCHC Auto (RBC) [Mass/Vol]Or dered By: Katharina Toledo on 10-02-2024 MCHC (RBC) [Mass/Vol] MCHC [Mass/volume] by Automated count 32.0-35.0 [facility] MCV Auto (RBC) [Entitic vol] Ordered By: Katharina Toledo on 10-02-2024 MCV (RBC) [Entitic vol] MCV [Entitic volume] by Automated count 80-100 [facility] Microcytes LM Ql (Bld)Ordere d By: Katharina Toledo on 10-02-2024 Microcytes Ql (Bld) Microcytes [Presence ] in Blood by Light microscopy [facility] Monocytes Auto (Bld) [#/Vol] Ordered By: Katharina Toledo on 10-02-2024 Monocytes (Bld) [#/Vol] Automated blood monocyte count 0.0-0.8 [facility] Monocytes/100 WBC Auto (Bld) Ordered By: Katharina Toledo on 10-02-2024 Monocytes/100 WBC (Bld) Automated monocyte % . [facility] Neutrophils Auto (Bld) [#/Vo l]Ordered By: Katharina Toledo on 10-02-2024 Neutrophils (Bld) [#/Vol] Neutrophils [#/volume] in Blood by Automated count 1.8-7.7 [facility] Neutrophils/100 WBC Auto (Bl d)Ordered By: Katharina Toledo on 10-02-2024 Neutrophils/100 WBC (Bld) Automated neutrophil % . [facility] No Panel InformationOrdered By: Katharina Toledo on 10-02-2024 Bedside Estimated GFR (eGFR) > 60.0 [facility] Nucleated erythrocytes [Pres ence] in Blood by Automated countOrdered By: Katharina Toledo on 10-02-2024 Nucleated RBC Auto Ql (Bld) Nucleated erythrocytes [Presence] in Blood by Automated count 0-0.5 [facility] Platelet adequacy [Presence] in Blood by Light microscopyOrdered By: Katharina Toledo on 10-02-2024 Platelets LM Ql (Bld) Platelet adequacy [Presence] in Blood by Light microscopy Normal [facility] Platelet mean volume Auto (B ld) [Entitic vol]Ordered By: Katharina Toledo on 10-02-2024 Platelet mean volume (Bld) [Entitic vol] Platelet mean volume [Entitic volume] in Blood by Automated count 6.3-10.7 [facility] Platelet morphology finding [Identifier] in BloodOrdered By: Katharina Toledo on 10-02-2024 Platelet morphology finding Nom (Bld) Platelet morphology finding [Identifier] in Blood Normal [facility] Platelets Auto (Bld) [#/Vol] Ordered By: Katharina Toledo on 10-02-2024 Platelets (Bld) [#/Vol] Platelets [#/volume] in Blood by Automated count 150-450 [facility] Polychromasia [Presence] in Blood by Light microscopyOrdered By: Katharina Toledo on 10-02-2024 Polychromasia LM Ql (Bld) Polychromasia [Presence] in Blood by Light microscopy [facility] RBC Auto (Bld) [#/Vol]Ordere d By: Katharina Toledo on 10-02-2024 RBC (Bld) [#/Vol] Erythrocytes [#/volume] in Blood by Automated count 3.60-5.00 [facility] Scan and CBCon 10-02-2024 Anisocytosis Ql (Bld) Marked Normal [facility] Comment on above: Performed By: #### S CAN CBC, FE and TIBC, ARISTIDES #### [address] Basophils (Bld) [#/Vol] 0.1 10*3/uL Normal 0.0-0.2 [facility] Comment on above: Performed By: #### S CAN CBC, FE and TIBC, ARISTIDES #### [address] Basophils/100 WBC (Bld) 0.8 % Normal . [facility] Comment on above: Performed By: #### S CAN CBC, FE and TIBC, ARISTIDES #### [address] Eosinophils (Bld) [#/Vol] 0.2 10*3/uL Normal 0.0-0.45 [facility] Comment on above: Performed By: #### S CAN CBC, FE and TIBC, ARISTIDES #### [address] Eosinophils/100 WBC (Bld) 2.3 % Normal . [facility] Comment on above: Performed By: #### S CAN CBC, FE and TIBC, ARISTIDES #### [address] Erythrocyte distribution width (RBC) [Ratio] 29.3 % High 11.9-15.3 [facility] Comment on above: Performed By: #### S CAN CBC, FE and TIBC, ARISTIDES #### [address] Hematocrit (Bld) [Volume fraction] 33.0 % Low 34.0-46.4 [facility] Comment on above: Performed By: #### S CAN CBC, FE and TIBC, ARISTIDES #### [address] Hemoglobin (Bld) [Mass/Vol] 10.6 g/dL Low 11.8-15.4 [facility] Comment on above: Performed By: #### S CAN CBC, FE and TIBC, ARISTIDES #### [address] Hypochromasia Slight Normal [facility] Comment on above: Performed By: #### S CAN CBC, FE and TIBC, ARISTIDES #### [address] Lymphocytes (Bld) [#/Vol] 1.4 10*3/uL Normal 1.00-4.8 [facility] Comment on above: Performed By: #### S CAN CBC, FE and TIBC, ARISTIDES #### [address] Lymphocytes/100 WBC (Bld) 15.8 % Normal . [facility] Comment on above: Performed By: #### S CAN CBC, FE and TIBC, ARISTIDES #### [address] MCH (RBC) [Entitic mass] 26.6 pg Normal 24.7-34.3 [facility] Comment on above: Performed By: #### S CAN CBC, FE and TIBC, ARISTIDES #### [address] MCV (RBC) [Entitic vol] 83.1 fL Normal 80-100 [facility] Comment on above: Performed By: #### S CAN CBC, FE and TIBC, ARISTIDES #### [address] Mean Corpuscular HGB Conc 32.0 g/dL Normal 32.0-35.0 [facility] Comment on above: Performed By: #### S CAN CBC, FE and TIBC, ARISTIDES #### [address] Microcytosis Slight Normal [facility] Comment on above: Performed By: #### S CAN CBC, FE and TIBC, ARISTIDES #### [address] Monocytes (Bld) [#/Vol] 0.6 10*3/uL Normal 0.0-0.8 [facility] Comment on above: Performed By: #### S CAN CBC, FE and TIBC, ARISTIDES #### [address] Monocytes/100 WBC (Bld) 7.3 % Normal . [facility] Comment on above: Performed By: #### S CAN CBC, FE and TIBC, ARISTIDES #### [address] Neutrophils (Bld) [#/Vol] 6.4 10*3/uL Normal 1.8-7.7 [facility] Comment on above: Performed By: #### S CAN CBC, FE and TIBC, ARISTIDES #### [address] Neutrophils/100 WBC (Bld) 73.8 % Normal . [facility] Comment on above: Performed By: #### S CAN CBC, FE and TIBC, ARISTIDES #### [address] NRBC% 0.0 /100{WBC} Normal 0-0.5 [facility] Comment on above: Performed By: #### S CAN CBC, FE and TIBC, ARISTIDES #### [address] Platelet Estimate Normal Normal Normal [facility] Comment on above: Performed By: #### S CAN CBC, FE and TIBC, ARISTIDES #### [address] Platelet mean volume (Bld) [Entitic vol] 6.9 fL Normal 6.3-10.[address] [facility] Comment on above: Performed By: #### S CAN CBC, FE and TIBC, ARISTIDES #### [address] Platelet Morphology Normal Normal Normal [facility] Comment on above: Result Comment: PERF ORMED BY: [place] [address] PATHOLOGIST SWING TYPE LATHE OPERATOR KATHLEEN RAMOS M.D. Performed By: #### S CAN CBC, FE and TIBC, ARISTIDES #### [facility] [address] Platelets (Bld) [#/Vol] 337 10*3/uL Normal 150-450 [facility] Comment on above: Performed By: #### S CAN CBC, FE and TIBC, ARISTIDES #### [facility] [address] Polychromasia Slight Normal [facility] Comment on above: Performed By: #### S CAN CBC, FE and TIBC, ARISTIDES #### [facility] [address] RBC (Bld) [#/Vol] 3.98 10*6/uL Normal 3.60-5.00 [facility] Comment on above: Performed By: #### S CAN CBC, FE and TIBC, ARISTIDES #### [facility] [address] WBC (Bld) [#/Vol] 8.7 10*3/uL Normal 3.8-11.6 [facility] Comment on above: Performed By: #### S CAN CBC, FE and TIBC, ARISTIDES #### [facility] [address] Serum or plasma iron binding capacity measurement (mass/volume)Ordered By: Katharina Toledo on 10-02-2024 Iron binding capacity [Mass/Vol] Iron binding capacity [Mass/volume] in Serum or Plasma 255-450 [facility] Serum or plasma iron saturat ion measurement (mass fraction)Ordered By: Katharina Toledo on 10-02-2024 Iron saturation [Mass fraction] Iron saturation [Mass Fraction] in Serum or Plasma Low 20-50 [facility] Transferrin [Mass/volume] in Serum or PlasmaOrdered By: Katharina Toledo on 10-02-2024 Transferrin [Mass/Vol] Transferrin [Mass/volume] in Serum or Plasma 203-362 [facility] WBC Auto (Bld) [#/Vol]Ordere d By: Katharina Toledo on 10-02-2024 WBC (Bld) [#/Vol] Leukocytes [#/volume ] in Blood by Automated count 3.8-11.6 [facility] Office Visiton 09-24-2024 Follow-up visit [id number] Oliver Starks 1945 F Date Provider Department Center 09/24/2024 [id number] HUMPHREY [place] Family History Adopted: Yes Family history unknown: Yes Family Status - Relation Status Age at Mother Father Level of Service:96938 ND OFFICE/OUTPATIENT ESTABLISHED MOD MDM 30 MIN Reason for Visit and Comments: Atrial Fibrillation [80] - Denies palpitations, lightheadedness/syncop e, and bleeding on Eliquis. Congestive Heart Failure [127] severe pulmonary hypertension [Other] - Denies chest pain and SOB. Edema [[id number]] - NOT taking lasix currently due to no LE edema. Normal [facility] Urinalysis macro (dipstick) panel (U)on 09-19-2024 Bilirubin, UA Negative Negative - 4(70) +++ mg/dL [facility] Blood, UA Positive Negative - 50 Shadi/mcL [facility] Clarity, UA Cloudy [facility] Color, UA Dark Sara [facility] Glucose, UA Negative Negative - 1999(110) ++++ mg/dL [facility] Interpretation and review of laboratory results Abnormal [facility] Ketones, UA Positive Negative - 160(16) ++++ mg/dL [facility] Leukocytes, UA Moderate Negative - 500+++ Rosette/mcL [facility] Nitrite, UA Negative Negative - Positive [facility] pH, UA 5 5 - 9 [facility] Protein, UA 3+ Negative - 1999(20) ++++ mg/dL [facility] Spec Grav, UA 1.3 1 - 1.03 [facility] Urobilinogen, UA 0.2 0.2 - 12 mg/dL [facility] C reactive protein [Mass/vol ume] in Serum or PlasmaOrdered By: Pedro Pablo Cruz on 08-24-2024 CRP [Mass/Vol] C reactive protein [Mass/volume] in Serum or Plasma High 0.0-0.5 [facility] C-Reactive Proteinon 024 C-Reactive Protein 1.1 mg/dL High 0.0-0.5 [facility] Comment on above: Result Comment: PERF ORMED BY: [facility] [address] [place], [place] [id number] PATHOLOGIST SWING TYPE LATHE OPERATOR KATHLEEN RAMOS M.D. Performed By: #### C RP ####[facility] [id number] [place] [address] [facility] CBC W Auto Differential pane l (Bld)on 08-24-2024 Basophils (Bld) [#/Vol] 0.1 10*3/uL 0.0 - 0.2 10*3/uL [facility] Basophils/100 WBC Manual cnt (Syn fld) 0.9 % . [facility] Eosinophils (Bld) [#/Vol] 0.2 10*3/uL 0.0 - 0.45 10*3/uL [facility] Eosinophils/100 WBC Manual cnt (Syn fld) 2.6 % . [facility] Erythrocyte distribution width (RBC) [Ratio] 19.3 % High 11.9 - 15.3 % [facility] Hematocrit (Bld) [Volume fraction] 28.2 % Low 34.0 - 46.4 % [facility] Hemoglobin (Bld) [Mass/Vol] 8.6 g/dL Low 11.8 - 15.4 g/dL [facility] Interpretation and review of laboratory results Abnormal [facility] Lymphocytes (Bld) [#/Vol] 2.1 10*3/uL 1.00 - 4.8 10*3/uL [facility] Lymphocytes/100 WBC Manual cnt (Syn fld) 23.5 % . [facility] MCH (RBC) [Entitic mass] 21.8 pg Low 24.7 - 34.3 pg [facility] MCHC (RBC) [Mass/Vol] 30.4 g/dL Low 32.0 - 35.0 g/dL [facility] MCV (RBC) [Entitic vol] 71.9 fL Low 80 - 100 fL [facility] Monocytes (Bld) [#/Vol] 0.6 10*3/uL 0.0 - 0.8 10*3/uL [facility] Monocytes+Macrophages /100 WBC Manual cnt (Syn fld) 6.8 % . [facility] Neutrophils (Bld) [#/Vol] 5.9 10*3/uL 1.8 - 7.7 10*3/uL [facility] Neutrophils/100 WBC Manual cnt (Syn fld) 66.2 % . [facility] NRBC 0 /100{WBC} 0 - 0.5 /100{WBC} [facility] Platelet mean volume (Bld) [Entitic vol] 6.9 fL 6.3 - 10.7 fL [facility] Platelets (Bld) [#/Vol] 345 10*3/uL 150 - 450 10*3/uL [facility] RBC LM.HPF (Urine sed) [#/Area] 3.93 10*6/uL 3.60 - 5.00 10*6/uL [facility] WBC (Bld) [#/Vol] 8.9 10*3/uL 3.8 - 11.6 10*3/uL [facility] WBC LM.HPF (Urine sed) [#/Area] 8.9 10*3/uL 3.8 - 11.6 10*3/uL [facility] Complete Blood Count Auto Di ffon 08-24-2024 Basophils (Bld) [#/Vol] 0.1 10*3/uL Normal 0.0-0.2 [facility] Comment on above: Result Comment: PERF ORMED BY: [facility] [address] [facility] [place] [address] PATHOLOGIST SWING TYPE LATHE OPERATOR KATHLEEN RAMOS M.D. Performed By: #### F ER, [id number], CBC, FE and TIBC ####[address] Basophils/100 WBC (Bld) 0.9 % Normal . [facility] Comment on above: Performed By: #### F ER, [id number], CBC, FE and TIBC ####[address] Eosinophils (Bld) [#/Vol] 0.2 10*3/uL Normal 0.0-0.45 [facility] Comment on above: Performed By: #### F ER, [id number], CBC, FE and TIBC ####[place] [address] [place] Eosinophils/100 WBC (Bld) 2.6 % Normal . [facility] Comment on above: Performed By: #### F ER, [id number], CBC, FE and TIBC ####[address] Erythrocyte distribution width (RBC) [Ratio] 19.3 % High 11.9-15.3 [facility] Comment on above: Performed By: #### F ER, [id number], CBC, FE and TIBC ####[address] Hematocrit (Bld) [Volume fraction] 28.2 % Low 34.0-46.4 [facility] Comment on above: Performed By: #### F ER, [id number], CBC, FE and TIBC ####[address] Hemoglobin (Bld) [Mass/Vol] 8.6 g/dL Low 11.8-15.4 [facility] Comment on above: Performed By: #### F ER, [id number], CBC, FE and TIBC ####[address] Lymphocytes (Bld) [#/Vol] 2.1 10*3/uL Normal 1.00-4.8 [facility] Comment on above: Performed By: #### F ER, [id number], CBC, FE and TIBC ####[address] Lymphocytes/100 WBC (Bld) 23.5 % Normal . [facility] Comment on above: Performed By: #### F ER, [id number], CBC, FE and TIBC ####[address] MCH (RBC) [Entitic mass] 21.8 pg Low 24.7-34.3 [facility] Comment on above: Performed By: #### F ER, [id number], CBC, FE and TIBC ####[address] MCV (RBC) [Entitic vol] 71.9 fL Low 80-100 [facility] Comment on above: Performed By: #### F ER, [id number], CBC, FE and TIBC ####[address] Mean Corpuscular HGB Conc 30.4 g/dL Low 32.0-35.0 [facility] Comment on above: Performed By: #### F ER, [id number], CBC, FE and TIBC ####[address] Monocytes (Bld) [#/Vol] 0.6 10*3/uL Normal 0.0-0.8 [facility] Comment on above: Performed By: #### F ER, [id number], CBC, FE and TIBC ####[address] Monocytes/100 WBC (Bld) 6.8 % Normal . [facility] Comment on above: Performed By: #### F ER, [id number], CBC, FE and TIBC ####[address] Neutrophils (Bld) [#/Vol] 5.9 10*3/uL Normal 1.8-7.7 [facility] Comment on above: Performed By: #### F ER, [id number], CBC, FE and TIBC ####[address] Neutrophils/100 WBC (Bld) 66.2 % Normal . [facility] Comment on above: Performed By: #### F ER, [id number], CBC, FE and TIBC ####[address] NRBC% 0.0 /100{WBC} Normal 0-0.5 [facility] Comment on above: Performed By: #### F ER, [id number], CBC, FE and TIBC ####[place] [address] [place] [id number] [facility] Platelet mean volume (Bld) [Entitic vol] 6.9 fL Normal 6.3-10.[address] [facility] Comment on above: Performed By: #### F ER, [id number], CBC, FE and TIBC ####[place] [id number] [facility] Platelets (Bld) [#/Vol] 345 10*3/uL Normal 150-450 [facility] Comment on above: Performed By: #### F ER, [id number], CBC, FE and TIBC ####[address] RBC (Bld) [#/Vol] 3.93 10*6/uL Normal 3.60-5.00 [facility] Comment on above: Performed By: #### F ER, [id number], CBC, FE and TIBC ####[place] [id number] [facility] WBC (Bld) [#/Vol] 8.9 10*3/uL Normal 3.8-11.6 [facility] Comment on above: Performed By: #### F ER, [id number], CBC, FE and TIBC ####[address] Erythrocyte Sedimentation Ra aren 08-24-2024 ESR (Bld) [Velocity] 103 mm/h High 0-29 [facility] Comment on above: Result Comment: PERF ORMED BY: [facility] [address] [place] [address] PATHOLOGIST SWING TYPE LATHE OPERATOR KATHLEEN RAMOS M.D. Performed By: #### E SR ####[address] Erythrocyte sedimentation ra te by Photometric methodOrdered By: Pedro Pablo Cruz on 08-24-2024 ESR Photometric method (Bld) [Velocity] Erythrocyte sedimentation rate by Photometric method High 0-29 [facility] Ferritinon 12-13-2024 Ferritin [Mass/Vol] 8.6 ng/mL Low 11.0-306.8 [facility] Comment on above: Performed By: #### F ER, [id number], CBC, FE and TIBC ####[facility] [place] [address] [facility] Folate [Mass/volume] in Seru m or PlasmaOrdered By: Katharina Toledo on 08-24-2024 Folate [Mass/Vol] Folate [Mass/volume] in Serum or Plasma >5.9 [facility] Comment on above: Folate reference ran ge: >5.9 ng/mlThe WHO technical consultation on folate and vitamin [id number] has determined that folate concentrations lessthan 4 ng/ml are considered deficient. Iron and TIBC Profileon 08-12 % Iron Saturation 3.2 % Low 20-50 [facility] Comment on above: Performed By: #### F ER, [id number], CBC, FE and TIBC ####[place] [address] [place] [address] [facility] Iron [Mass/Vol] 14 ug/dL Low 50-212 [facility] Comment on above: Performed By: #### F ER, [id number], CBC, FE and TIBC ####[place] [address] [place] [address] [facility] Total Iron Binding Capacity 437 ug/dL Normal 255-450 [facility] Comment on above: Performed By: #### F ER, [id number], CBC, FE and TIBC ####[place] [address] [place] [address] [facility] Transferrin [Mass/Vol] 312 mg/dL Normal 203-362 [facility] Comment on above: Performed By: #### F ER, [id number], CBC, FE and TIBC ####[place] [address] [place] [address] [facility] Vit. B12/Folate Profileon Cobalamin (Vitamin B12) [Mass/Vol] 417 pg/mL Normal 180-914 [facility] Comment on above: Performed By: #### F ER, [id number], CBC, FE and TIBC ####[facility] [id number] Folate 28.0 ng/mL Normal >5.9 [facility] Comment on above: Result Comment: Nayely te reference range: >5.9 ng/ml The WHO technical consultation on folate and vitamin b12 deficiencies has determined that folate concentrations less than 4 ng/ml are considered deficient. PERFORMED BY: [facility] [address] [place] [address] PATHOLOGIST SWING TYPE LATHE OPERATOR KATHLEEN RAMOS M.D. Performed By: #### F ER, [id number], CBC, FE and TIBC ####[facility] [id number] Vitamin B12 ser/plasOrdered By: Katharina Toledo on 08-24-2024 Cobalamin (Vitamin B12) [Mass/Vol] Vitamin B12 ser/plas 180-914 [facility] TRANSFERRINon 07-25-2024 Transferrin [Mass/Vol] 284 mg/dL 192 - 364 mg/dL [facility] Comment on above: Performed at: [address] [id number] Neuropsychologist: Baudilio Givens PhD, Phone: [phone] [facility] ALL CBC WITH AUTO DIFFon BASOPHILS ABSOLUTE AUTO 0.1 [facility] Basophils/100 WBC (Bld) 0.9 % 0.2 - 2.0 % [facility] Eosinophils/100 WBC (Bld) 0.9 % 0.9 - 7.0 % [facility] Erythrocyte distribution width (RBC) [Ratio] 17.7 % High 11.0 - 15.0 % [facility] Hematocrit (Bld) [Volume fraction] 29.9 % Low 36.0 - 48.0 % [facility] Hemoglobin (Bld) [Mass/Vol] 8.7 g/dL Low 12.0 - 16.0 g/dL [facility] IMMATURE GRANULOCYTES ABS AUTO 0.03 [facility] Immature granulocytes/100 WBC (Bld) 0.3 % 0.0 - 0.5 % [facility] Interpretation and review of laboratory results Abnormal [facility] LYMPHOCYTES ABSOLUTE AUTO 1.4 [facility] Lymphocytes/100 WBC (Bld) 14.1 % Low 20.5 - 60.0 % [facility] MCH (RBC) [Entitic mass] 22.3 pg Low 26.7 - 34.0 pg [facility] MCHC (RBC) [Mass/Vol] 29.1 g/dL Low 29.9 - 35.2 g/dL [facility] MCV (RBC) [Entitic vol] 76.7 fL Low 81.0 - 99.0 fL [facility] MONOCYTES ABSOLUTE AUTO 0.7 [facility] Monocytes/100 WBC (Bld) 6.6 % 1.7 - 12.0 % [facility] NEUTROPHILS ABSOLUTE AUTO 7.7 High [facility] Neutrophils/100 WBC (Bld) 77.2 % High 43.0 - 75.0 % [facility] Platelet mean volume (Bld) [Entitic vol] 9.3 fL Low 9.5 - 13.5 fL [facility] TBH EO # 0.1 [facility] TB PLT 328 [facility] RBC 3.9 Low [facility] WBC 10 [facility] METRO IRON AND TIBCon 2023 Interpretation and review of laboratory results Abnormal [facility] IRON 17 ug/dL Low 50.0 - 170.0 ug/dL [facility] PERCENT IRON SATURATION 4.5 % [facility] TOTAL IRON BINDING CAPACITY 381 ug/dL 250.0 - 450.0 ug/dL [facility] Office Visiton 07-18-2024 Follow-up visit [id number] Oliver Starks 1945 F Date Provider Department Center 07/18/2024 [id number]-[id number] ALTMAN Family History Adopted: Yes Family history unknown: Yes Family Status - Relation Status Age at Mother Father Level of Service:17734 ND OFFICE/OUTPATIENT ESTABLISHED MOD MDM 30 MIN Reason for Visit and Comments: Atrial Fibrillation [80] PACEMAKER [Other] Coronary Artery Disease [187] Hypertension [422285] Sinus node dysfunction [Other] - HAS BOSTON PACER Obesity [[id number]] Edema [[id number]] Normal [facility] CNOVon 05-22-2024 CNOV Office Visit (LOORRM ) BREANN STARKS ([id number]) 1945 F Date Time Provider Department 05/22/24 [...] recommended for second opinion at [facility]. She also had a CRP and ESR [...] COPD (chronic obstructive pulmonary disease) ([facility]) SOCIAL HISTORY: Tobacco Use: Never [...] to left shoulder joint prosthesis ([facility]) T84.84XA CT SHOULDER WO IVCON [...] I ordered (more content not included)... Normal [facility] XR SHLDR 4V AP/HECTOR/LAT/OUTLE T LTon [...] other significant abnormality. IMPRESSION: EXPECTED POSTOPERATIVE APPEARANCE Paper Plate Machine Tender: STEVE Transcribe Date/Time: May 22 2024 2:42P Dictated by : VILMA ABREU MD This examination was interpreted and the report reviewed and electronically signed by: VILMA ABREU MD on May 22 2024 2:42PM EST [id number] Normal [facility] XR Shoulder - left 4 Viewson 05-22-2024 IMPRESSION: EXPECTED POSTOPERATIVE APPEARANCE Paper Plate Machine Tender: [email or web address] Transcribe Date/Time: May 22 2024 2:42P [...] other significant abnormality. DIVISION OF RADIOLOGY Provider, [facility] Sandra Zuleta - 05/22/2024 * * *Final Report* * * DATE OF EXAM: May 22 2024 1:23PM X [id number] - XR SHLDR 4V AP/HECTOR/LAT/OUTLET LT [...] significant abnormality. IMPRESSION IMPRESSION: EXPECTED POSTOPERATIVE APPEARANCE Paper Plate Machine Tender: STEVE Transcribe Date/Time: May 22 2024 2:42P Dictated by : VILMA ABREU MD This examination was interpreted and the report reviewed and electronically signed by: VILMA ABREU MD on May 22 2024 2:42PM EST [facility] Radiology Study observation (narrative) [facility] XR Shoulder - left 4 ViewsOr dered By: [facility] Provider on 05-22-2024 [facility] ALL CBC WITH AUTO DIFFon BASOPHILS ABSOLUTE AUTO 0.0 [facility] Basophils/100 WBC (Bld) 0.6 % 0.2 - 2.0 % [facility] Eosinophils/100 WBC (Bld) 1.0 % 0.9 - 7.0 % [facility] Erythrocyte distribution width (RBC) [Ratio] 19.6 % High 11.0 - 15.0 % [facility] Hematocrit (Bld) [Volume fraction] 32.9 % Low 36.0 - 48.0 % [facility] Hemoglobin (Bld) [Mass/Vol] 9.7 g/dL Low 12.0 - 16.0 g/dL [facility] IMMATURE GRANULOCYTES ABS AUTO 0.02 [facility] Immature granulocytes/100 WBC (Bld) 0.3 % 0.0 - 0.5 % [facility] Interpretation and review of laboratory results Abnormal [facility] LYMPHOCYTES ABSOLUTE AUTO 1.4 [facility] Lymphocytes/100 WBC (Bld) 20.4 % Low 20.5 - 60.0 % [facility] MCH (RBC) [Entitic mass] 22.8 pg Low 26.7 - 34.0 pg [facility] MCHC (RBC) [Mass/Vol] 29.5 g/dL Low 29.9 - 35.2 g/dL [facility] MCV (RBC) [Entitic vol] 77.4 fL Low 81.0 - 99.0 fL [facility] MONOCYTES ABSOLUTE AUTO 0.7 [facility] Monocytes/100 WBC (Bld) 9.8 % 1.7 - 12.0 % [facility] NEUTROPHILS ABSOLUTE AUTO 4.7 [facility] Neutrophils/100 WBC (Bld) 67.9 % 43.0 - 75.0 % [facility] Platelet mean volume (Bld) [Entitic vol] 8.5 fL Low 9.5 - 13.5 fL [facility] TBH EO # 0.1 [facility] TBH PLT 278 [facility] RBC 4.25 [facility] TB WBC 7.0 [facility]IS[facility]NC [facility] NM bone 3 phaseon 05-02-2024 MT bone [address] [facility] Main [address] [address] Nuclear Medicine Report Signed Patient: Breann Starks MR#: [id number] : 1945 Acct:[id number] Age/Sex: 78 / F ADM Date: 05/02/24 Loc: MT Room: Type: [facility] Attending Dr: Pedro Pablo Cruz PA-C Copies [...] Etienne Rhodes M.D.05/02/2024 2:44 PM Dictation Location: [place] [address] Transcribed By: [facility] 05/02/24 1444 Dictated By: Etienne Rhodes DO 05/02/24 1440 Signed By: 05/02/24 1444 Normal [facility] Lab Reportson 03-07-2024 Lab Reports [id number]#1.0 0TIFF Normal [facility] 36on 03-06-2024 36 Echo from 03/05/2024 reviewed [...] to her pharmacy. BMP order faxed to [facility]. Breann verbalized understanding. Normal [facility] Consent for Procedure/Surger yon 03-05-2024 Consent for Procedure/Surgery [id number] 0TIFF Normal [facility] Ambulatory Visit Summaryon 0 03-02-2024 Ambulatory Visit Summary BREANN STARKS :1945 Visit Date:03/02/2024 Ambulatory Visit Instructions Your Care Team Attending Physician - CATHERINE CUBA, Jair Bishop Primary Care Physician - Cate JUÁREZ, [...] you for choosing us for your care. [facility] ED Note-Physicianon 03-02-20 ED Note-Physician [id number] TIFF [facility] Insurance Correspondenceon 0 03-02-2024 Insurance Correspondence [id number]. 00TIFF Normal [facility] Lab Reportson 03-02-2024 Lab Reports [id number] 0TIFF Normal [facility] DXA Skeletal system Views fo r bone densityon 12-12-2023 Interpretation and review of laboratory results Normal [facility] normal [facility] Radiology Study observation (narrative) [facility] XR LSPINE W_OBLS AND FLEX_EX [...] PAULA BROWN Date: 2023-01-31 11:34 Normal [facility] LIPID PROFILEon 12-16-2022 CHOL-HDL RATIO NORM SEE BELOW Normal [facility] Comment on above: Result Comment: 3.3 - 4.4 LOW RISK 4.4 - 7.1 AVERAGE RISK 7.1 - 11.0 MODERATE RISK >11.0 HIGH RISK Performed By: #### L IPID ####[facility] [address] [place], [place] [address]HyDr. Erasmo Smith Cholesterol [Mass/Vol] 105 mg/dL Normal <=200 [facility] Comment on above: Performed By: #### L IPID ####[facility] [address] [place], [place] [address]Jy. Erasmo Smith Cholesterol in HDL [Mass/Vol] 48 mg/dL Normal 40-60 [facility] Comment on above: Performed By: #### L IPID ####[facility] [address] [place] [id number]. Erasmo Smith Cholesterol in LDL [Mass/Vol] 48.2 mg/dL Normal [facility] Comment on above: Performed By: #### L IPID ####[facility] [address] [place] [address]Dr. Erasmo Smith Cholesterol.total/Cho lesterol in HDL [Mass ratio] 2.2 {ratio} Normal [facility] Comment on above: Performed By: #### L IPID ####[facility] [address] [place] [address]Dr. Erasmo Smith HDL NORMAL > or = 60 mg/dl - LO W CARDIOVASCULAR RISK <40 mg/dl - HIGH CARDIOVASCULAR RISK Normal [facility] Comment on above: Performed By: #### L IPID ####[facility] [address] [place] [address]Dr. Erasmo Smith LDL CALC NORMAL SEE BELOW Normal [facility] Comment on above: Result Comment: <100 mg/dl OPTIMAL 100 - 129 mg/dl NEAR OR ABOVE OPTIMAL 130 - 159 mg/dl BORDERLINE HIGH 160 - 189 mg/dl HIGH >190 mg/dl VERY HIGH Performed By: #### L IPID ####[facility] [address] [place] [address]Dr. Erasmo Smith Triglyceride [Mass/Vol] 44 mg/dL Normal <=150 [facility] Comment on above: Performed By: #### L IPID ####[facility] [address] [place] [address]Dr. Erasmo Smith VLDL CALC 8.8 mg/dL Normal [facility] Comment on above: Performed By: #### L IPID ####[facility] [address] [place] [address]Dr. Erasmo Smith CULTURE BLOODon 12-04-2022 Microscopic examination [...] <=20 S F Normal [facility] Comment on above: Performed By: #### B LDCX1 ####[facility] [address], [place] [address]Dr. Erasmo Smith BNPon 12-03-2022 Natriuretic peptide B (Bld) [Mass/Vol] 413.0 pg/mL Normal <=1,800.0 [facility] Comment on above: Performed By: #### B JAVA DEVELOPER ANALYST #### [facility] Laboratory [address] [place] [address] Dr. Erasmo Smith CBC AUTO DIFFon 12-03-2022 BASO # 0.0 103/ul Normal 0.0-0.1 [facility] Comment on above: Performed By: #### C BC ####[facility] [address], [place] [address]DrMeena Smith Basophils/100 WBC (Bld) 0.2 % Normal 0.2-2.0 [facility] Comment on above: Performed By: #### C BC ####[facility] [address], [place] [address]DrMeena Smith EO # 0.4 103/ul Normal 0.0-0.7 [facility] Comment on above: Performed By: #### C BC ####[facility] Ha[address], [place] [address]DrMeena Smith Eosinophils/100 WBC (Bld) 2.1 % Normal 0.9-7.0 [facility] Comment on above: Performed By: #### C BC ####[facility] [address] [place] [address]Dr. Erasmo Smith Erythrocyte distribution width (RBC) [Ratio] 17.2 % Critically high 11.0-15.0 [facility] Comment on above: Performed By: #### C BC ####[facility] [address] [place] [address]Dr. Erasmo Smith Hematocrit (Bld) [Volume fraction] 29.2 % Critically low 36.0-48.0 [facility] Comment on above: Performed By: #### C BC ####[facility] [address]ff[address] [place] [address]Dr. Erasmo Smith Hemoglobin (Bld) [Mass/Vol] 9.5 g/dL Critically low 12.0-16.0 [facility] Comment on above: Performed By: #### C BC ####[facility] Jhgqtzuxye[address], [place] [address]Dr. Erasmo Smith IG # 0.13 10e3/ul Critically high 0.00-0.03 [facility] Comment on above: Performed By: #### C BC ####[facility] Bhznkistra[address], [place] [address]Dr. Heavenean Smith IG % 0.8 % Critically high 0.0-0.5 [facility] Comment on above: Performed By: #### C BC ####[facility] Lufqtag[address], [place] [address]Dr. Erasmo Smith LYMPH # 1.8 103/ul Normal 1.2-3.8 [facility] Comment on above: Performed By: #### C BC ####[facility] [address]ql[address] [place] [address]Dr. Erasmo Smith Lymphocytes/100 WBC (Bld) 10.3 % Critically low 20.5-60.0 [facility] Comment on above: Performed By: #### C BC ####[facility] Rrnzshesre[address], [place] [address]Dr. Heavenean Smith MANUAL DIFF REQ NO Normal [facility] Comment on above: Performed By: #### C BC ####[facility] [address] [place] [id number]. Erasmo Luis MCH (RBC) [Entitic mass] 25.7 pg Critically low 26.7-34.0 [facility] Comment on above: Performed By: #### C BC ####[facility] [address] [place] [id number]. Erasmo Luis MCHC (RBC) [Mass/Vol] 32.5 g/dL Normal 29.9-35.2 [facility] Comment on above: Performed By: #### C BC ####[facility] [address]cp[address] [place] [id number]. Heavenean Smith MCV (RBC) [Entitic vol] 79.1 fL Critically low 81.0-99.0 [facility] Comment on above: Performed By: #### C BC ####[facility] [address]qd[address]cv[address], [place] [address]Dr. Erasmo Smith MONO # 1.5 103/ul Critically high 0.3-0.8 [facility] Comment on above: Performed By: #### C BC ####[facility] Rvm[address]zhq[address] [place] [address]Dr. Erasmo Smith Monocytes/100 WBC (Bld) 8.7 % Normal 1.7-12.0 [facility] Comment on above: Performed By: #### C BC ####[facility] [address]sx[address]wsgj[address] [place] [id number]. Heavenean Smith NEUT # 13.4 103/ul Critically high 1.4-6.5 [facility] Comment on above: Performed By: #### C BC ####[facility] Y[address] [place], [place] [id number]. Erasmo Smith Neutrophils/100 WBC (Bld) 77.9 % Critically high 43.0-75.0 [facility] Comment on above: Performed By: #### C BC ####[facility] [address] [place], [place] [id number]. Erasmo Smith Platelet mean volume (Bld) [Entitic vol] 9.3 fL Critically low 9.5-13.5 [facility] Comment on above: Performed By: #### C BC ####[facility] [address] [place], [place] [address]Wj. Erasmo Smith PLT 205 103/ul Normal 150-450 [facility] Comment on above: Performed By: #### C BC ####[facility] Vvey[address]xf[address] [place], [place] [address]Lh. Erasmo Smith RBC 3.69 106/ul Critically low 4.20-5.40 [facility] Comment on above: Performed By: #### C BC ####[facility] [address] [place], [place] [address]Wy. Erasmo Smith WBC 17.2 103/ul Critically high 4.0-11.0 [facility] Comment on above: Performed By: #### C BC ####[facility] L[address]qiouob[address] [place], [place] [address]AeMeena Smith MAGNESIUMon 12-03-2022 Magnesium [Mass/Vol] 1.9 mg/dL Normal 1.8-2.4 [facility] Comment on above: Performed By: #### B JAVA DEVELOPER ANALYST #### [facility] [address] [address] [address] Erasmo Smith PROF 14(COMP METB)on 023 Albumin [Mass/Vol] 2.6 g/dL Critically low 3.4-5.0 [facility] Comment on above: Performed By: #### B JAVA DEVELOPER ANALYST #### [facility] [address] [address] [address] Erasmo Smith Albumin/Globulin [Mass ratio] 0.6 {ratio} Normal [facility] Comment on above: Performed By: #### B JAVA DEVELOPER ANALYST #### [facility] [address] [address] [address] Erasmo Smith ALP [Catalytic activity/Vol] 123 U/L Critically high 46-116 [facility] Comment on above: Performed By: #### B JAVA DEVELOPER ANALYST #### [facility] [address] [address] [address] Erasmo Smith ALT [Catalytic activity/Vol] 28 U/L Normal 14-59 [facility] Comment on above: Performed By: #### B JAVA DEVELOPER ANALYST #### [facility] [address] [address] [address] Erasmo Smith Anion gap [Moles/Vol] 9.4 mmol/L Normal [facility] Comment on above: Performed By: #### B JAVA DEVELOPER ANALYST #### [facility] [address] [address] [address] Erasmo Smith AST [Catalytic activity/Vol] 21 U/L Normal 15-37 [facility] Comment on above: Performed By: #### B JAVA DEVELOPER ANALYST #### [facility] [address] [address] [address] Erasmo Smith Bilirubin [Mass/Vol] 0.3 mg/dL Normal 0.2-1.0 [facility] Comment on above: Performed By: #### B JAVA DEVELOPER ANALYST #### [facility] [address] [place] [address] Dr. Erasmo Smith Calcium [Mass/Vol] 8.3 mg/dL Critically low 8.5-10.1 [facility] Comment on above: Performed By: #### B JAVA DEVELOPER ANALYST #### [facility] [address] [place] [address] Dr. Erasmo Smith Chloride [Moles/Vol] 105 mmol/L Normal 98-107 [facility] Comment on above: Performed By: #### B JAVA DEVELOPER ANALYST #### [facility] [address] [place] [address] Dr. Erasmo Smith CO2 [Moles/Vol] 27.1 mmol/L Normal 21.0-32.0 [facility] Comment on above: Performed By: #### B JAVA DEVELOPER ANALYST #### [facility] [address] [place] [address] Dr. Erasmo Smith Creatinine [Mass/Vol] 0.55 mg/dL Normal 0.55-1.02 [facility] Comment on above: Performed By: #### B JAVA DEVELOPER ANALYST #### [facility] [address] [address] [address] Erasmo Smith EGFR-AF BARBADIAN >60 Normal >=60 [facility] Comment on above: Performed By: #### B JAVA DEVELOPER ANALYST #### [facility] [address] [place] [address] Dr. Erasmo Smith EGFR-NON AF BARBADIAN >60 Normal >=60 [facility] Comment on above: Performed By: #### B JAVA DEVELOPER ANALYST #### [facility] [address] [place] [address] Dr. Erasmo Smith Globulin (S) [Mass/Vol] 4.0 g/dL Normal [facility] Comment on above: Performed By: #### B JAVA DEVELOPER ANALYST #### [facility] [address] [place] [address] Dr. Erasmo Smith Glucose [Mass/Vol] 132 mg/dL Critically high 74-106 [facility] Comment on above: Performed By: #### B JAVA DEVELOPER ANALYST #### [facility] [address] [place] [address] Dr. Erasmo Smith Potassium [Moles/Vol] 3.5 mmol/L Normal 3.5-5.1 [facility] Comment on above: Performed By: #### B JAVA DEVELOPER ANALYST #### [facility] [address] [place] [address] Dr. Erasmo Smith Protein [Mass/Vol] 6.6 g/dL Normal 6.4-8.2 [facility] Comment on above: Performed By: #### B JAVA DEVELOPER ANALYST #### [facility] [address] [place] [address] Dr. Erasmo Smith Sodium [Moles/Vol] 138 mmol/L Normal 136-145 [facility] Comment on above: Performed By: #### B JAVA DEVELOPER ANALYST #### [facility] [address] [place] [address] Dr. Erasmo Smith Urea nitrogen [Mass/Vol] 24.0 mg/dL Critically high 7.0-18.0 [facility] Comment on above: Performed By: #### B JAVA DEVELOPER ANALYST #### [facility] [address] [place] [address] Dr. Erasmo Smith Urea nitrogen/Creatinine [Mass ratio] 43.6 mg/mg Normal [facility] Comment on above: Performed By: #### B JAVA DEVELOPER ANALYST #### [facility] [address] [place] [address] Dr. Erasmo Smith PROTIMEon 03-24-2023 INR Coag (PPP) [Relative time] 4.41 {INR} Critically high [facility] Comment on above: Performed By: #### C MREP #### [facility] [address] [address] [address] Erasmo Smith INR GUIDELINES SEE BELOW Normal [facility] Comment on above: Result Comment: ABNER RED INR: 2.0 - 3.0 CONDITIONS NOT LISTED BELOW 2.5 - 3.5 FOR PROSTHETIC HEART VALVE REPLACEMENT 2.5 - 3.5 RECURRENT THROMBOSIS Performed By: #### C MREP #### [facility] [address] [address] [address] Erasmo Smith PT Coag (PPP) [Time] 43.0 s Critically high 9.0-11.6 [facility] Comment on above: Performed By: #### C MREP #### [facility] [address] [address] [address] Erasmo Smith BLOOD CULTURE ID PANELon A. baumannii Not detected Normal NOT DETECTED [facility] Comment on above: Performed By: #### B CID2 ####[facility] [address] [place] [address]DrMeena Smith Bacteriodes fragilis Not detected Normal NOT DETECTED [facility] Comment on above: Performed By: #### B CID2 ####[facility] [address] [place] [address]Dr. Erasmo Smith BCID CONTROLS PASSED Normal [facility] Comment on above: Performed By: #### B CID2 ####[facility] [address] [place] [address]Dr. Erasmo Smith BCIDBTHD BLOOD CULTURE BOTTLE INFORMATION Normal [facility] Comment on above: Performed By: #### B CID2 ####[facility] [address]elf[address] [place] [address]Dr. Erasmo Smith BCIDHD1 ANTIMICROBIAL RESISTANCE GENES Normal [facility] Comment on above: Performed By: #### B CID2 ####[facility] [address]cp[address] [place] [address]Dr. Yilan Smith BCIDHD2 SEE BELOW Normal [facility] Comment on above: Result Comment: Note : Antimicrobial resitance can occur via multiple mechanisms. A Not Detected result for the [employer] antomicrobial resistance gene assays does not indicate antimicrobial susceptibility. Subculturing is required for species identification and susceptibility testing of isolates. Performed By: #### B CID2 ####[facility] [address] [place] [address]Dr. Erasmo Smith BCIDHD3 Positive Normal [facility] Comment on above: Performed By: #### B CID2 ####[facility] [address] [place] [address]Dr. Erasmo Smith BCIDHD4 Negative Normal [facility] Comment on above: Performed By: #### B CID2 ####[facility] Fixmgkaumn[address] [place] [address]Dr. Erasmo Smith BCIDHD5 YEAST Normal [facility] Comment on above: Performed By: #### B CID2 ####[facility] [address]cl[address]sc[address], [place] [address]Dr. Erasmo Smith Bottle Set: Set 1 Normal [facility] Comment on above: Performed By: #### B CID2 ####[facility] Wr[address]ia[address], [place] [address]Dr. Erasmo Smith Bottle: Anaerobic Normal [facility] Comment on above: Performed By: #### B CID2 ####[facility] [address]ns[address], [place] [address]Dr. Erasmo Smith C. neoformans/gattii Not detected Normal NOT DETECTED [facility] Comment on above: Performed By: #### B CID2 ####[facility] [address]zvtibml[address] [place] [address]Dr. Yiean Smith Naye albicans Not detected Normal NOT DETECTED [facility] Comment on above: Performed By: #### B CID2 ####[facility] E[address]bsqdwc[address] [place] [address]Dr. Erasmo Smith Naye auris Not detected Normal NOT DETECTED [facility] Comment on above: Performed By: #### B CID2 ####[facility] Xdosduugen[address], [place] [address]Dr. Erasmo Smith Naye glabrata Not detected Normal NOT DETECTED [facility] Comment on above: Performed By: #### B CID2 ####[facility] Dafel[address]kaz[address], [place] [address]Dr. Erasmo Smith Naye Krusei Not detected Normal NOT DETECTED [facility] Comment on above: Performed By: #### B CID2 ####[facility] [address]pshmv[address], [place] [address]Dr. Erasmo Smith Naye Parapsilosis Not detected Normal NOT DETECTED [facility] Comment on above: Performed By: #### B CID2 ####[facility] Obkttpptya[address], [place] [address]Dr. Erasmo Smith Naye Tropicalis Not detected Normal NOT DETECTED [facility] Comment on above: Performed By: #### B CID2 ####[facility] Gyqxfoutog[address], [place] [address]Dr. Erasmo Smith CTX-M Resistant Gene Not Applicable Normal NOT DETECTE D [facility] Comment on above: Performed By: #### B CID2 ####[facility] Prymnxafjc[address], [place] [address]Dr. Heavenean Luis E. Cloacae complex Not detected Normal NOT DETECTED [facility] Comment on above: Performed By: #### B CID2 ####[facility] Esbruliplm[address], [place] [address]Dr. Erasmo Smith E. faecalis Not detected Normal NOT DETECTED [facility] Comment on above: Performed By: #### B CID2 ####[facility] Qbzkxncwja[address], [place] [address]Dr. Erasmo Smith E. faecium Not detected Normal NOT DETECTED [facility] Comment on above: Performed By: #### B CID2 ####[facility] Arfbqeaxlf107[address], [place] [address]Dr. Erasmo Smith Enterobacteriaceae Detected Critically abnormal NOT DETECTED [facility] Comment on above: Performed By: #### B CID2 ####[facility] Asnssiwqdi[address], [place] [address]Dr. Erasmo Smith Escherichia coli Detected Critically abnormal NOT DETECTED [facility] Comment on above: Performed By: #### B CID2 ####[facility] Rphlhkaelt[address], [place] [address]Dr. Erasmo Smith H. influenzae Not detected Normal NOT DETECTED [facility] Comment on above: Performed By: #### B CID2 ####[facility] Owvqwoxulk[address], [place] [address]Dr. Erasmo Smith IMP Resistant Gene Not Applicable Normal NOT DETECTED [facility] Comment on above: Performed By: #### B CID2 ####[facility] Fxttrrlouc[address], [place] [address]Dr. Erasmo Smith K. oxytoca Not detected Normal NOT DETECTED [facility] Comment on above: Performed By: #### B CID2 ####[facility] Kjxbjsuxlt[address], [place] [address]Dr. Erasmo Smith K. pneumoniae Not detected Normal NOT DETECTED [facility] Comment on above: Performed By: #### B CID2 ####[facility] Yyzejkrryg[address], [place] [address]Dr. Erasmo Smith Klebsiella aerogenes Not detected Normal NOT DETECTED [facility] Comment on above: Performed By: #### B CID2 ####[facility] Upyvopxvgt[address], [place] [address]Dr. Erasmo Smith KPC Resistant Gene Not detected Normal NOT DETECTED [facility] Comment on above: Performed By: #### B CID2 ####[facility] Qvwkpawaee046[address], [place] [address]Dr. Erasmo Smith List. monocytogenes Not detected Normal NOT DETECTED [facility] Comment on above: Performed By: #### B CID2 ####[facility] Eaduqlklui[address], [place] [address]Dr. Erasmo Smith Mcr-1 Resistant Gene Not Applicable Normal NOT DETECTE D [facility] Comment on above: Performed By: #### B CID2 ####[facility] Qqeiugspui[address], [place] [address]Dr. Erasmo Smith mecA/C Not Applicable Normal NOT DETECTED The [facility] Comment on above: Performed By: #### B CID2 ####[facility] Bhrgkivial[address], [place] [address]Dr. Erasmo Smith mecA/C MREJ Not Applicable Normal NOT DETECTED [facility] Comment on above: Performed By: #### B CID2 ####[facility] Kbziixezmy[address], [place] [address]Dr. Erasmo Smith N. meningitidis Not detected Normal NOT DETECTED [facility] Comment on above: Performed By: #### B CID2 ####[facility] Ssthvpchek[address], [place] [address]Dr. Erasmo Smith NDM Resistant Gene Not Applicable Normal NOT DETECTED [facility] Comment on above: Performed By: #### B CID2 ####[facility] Stjhggoimg9[address], [place] [address]Dr. Erasmo Smith Oxa-48-like Not Applicable Normal NOT DETECTED [facility] Comment on above: Performed By: #### B CID2 ####[facility] Iqjkpacbvl[address], [place] [address]Dr. Erasmo Smith Proteus Not detected Normal NOT DETECTED [facility] Comment on above: Performed By: #### B CID2 ####[facility] Idrkjfspap34[address], [place] [address]Dr. Erasmo Smith Pseud. aeruginosa Not detected Normal NOT DETECTED [facility] Comment on above: Performed By: #### B CID2 ####[facility] Dpnoowwepa153[address], [place] [address]Dr. Erasmo Smith S. maltophilia Not detected Normal NOT DETECTED [facility] Comment on above: Performed By: #### B CID2 ####[facility] Zoaowhytkd[address], [place] [address]Dr. Erasmo Smith Salmonella Not detected Normal NOT DETECTED [facility] Comment on above: Performed By: #### B CID2 ####[facility] Fasiykrbqz[address], [place] [address]Dr. Erasmo Smith Seratia marcescens Not detected Normal NOT DETECTED [facility] Comment on above: Performed By: #### B CID2 ####[facility] Avjhgfpbts[address], [place] [address]Dr. Erasmo Smith Site: l ac Normal [facility] Comment on above: Performed By: #### B CID2 ####[facility] Bttqbfjjdo197[address], [place] [address]Dr. Yilan Smith Staph. aureus Not detected Normal NOT DETECTED [facility] Comment on above: Performed By: #### B CID2 ####[facility] Jkvgxwgpod[address], [place] [address]Dr. Erasmo Smith Staph. epidermidis Not detected Normal NOT DETECTED [facility] Comment on above: Performed By: #### B CID2 ####[facility] Trwddnvlix88[address], [place] [address]Dr. Erasmo Smith Staph. lugdunensis Not detected Normal NOT DETECTED [facility] Comment on above: Performed By: #### B CID2 ####[facility] Idijqzbglg[address], [place] [address]Dr. Yilan Smith Staphylococcus Not detected Normal NOT DETECTED [facility] Comment on above: Performed By: #### B CID2 ####[facility] Lbpbiemhcj[address], [place] [address]Dr. Erasmo Smith Strep. agalactiae Not detected Normal NOT DETECTED [facility] Comment on above: Performed By: #### B CID2 ####[facility] Aiutpwhfhh[address], [place] [address]Dr. Yiean Smith Strep. pneumoniae Not detected Normal NOT DETECTED [facility] Comment on above: Performed By: #### B CID2 ####[facility] Qoqfmjcept[address], [place] [address]Dr. Yilan Smith Strep. pyogenes Not detected Normal NOT DETECTED [facility] Comment on above: Performed By: #### B CID2 ####[facility] Ijlvtqafip[address], [place] [address]Dr. Yilan Smith Streptococcus Not detected Normal NOT DETECTED [facility] Comment on above: Performed By: #### B CID2 ####[facility] Xwuqqphhmx[address] [place] [address]Dr. Erasmo Smith Fran/B Resist. Gene Not detected Normal NOT DETECTED [facility] Comment on above: Performed By: #### B CID2 ####[facility] [address], [place] [address]DrMeena Smith VIM Resistant Gene Not Applicable Normal NOT DETECTED [facility] Comment on above: Performed By: #### B CID2 ####[facility] [address] [address]DrMeena Smith BNPon 12-02-2022 Natriuretic peptide B (Bld) [Mass/Vol] 1059.0 pg/mL Normal <=1,800.0 [facility] Comment on above: Performed By: #### B JAVA DEVELOPER ANALYST #### [facility] Laboratory [address] [address] [address] Erasmo Smith CBC AUTO DIFFon 12-02-2022 BASO # 0.0 103/ul Normal 0.0-0.1 [facility] Comment on above: Performed By: #### C BC ####[facility] [address], [place] [address]Dr. Erasmo Smith Basophils/100 WBC (Bld) 0.2 % Normal 0.2-2.0 [facility] Comment on above: Performed By: #### C BC ####[facility] [address], [place] [address]Dr. Erasmo Smith EO # 0.0 103/ul Normal 0.0-0.7 [facility] Comment on above: Performed By: #### C BC ####[facility] [address] [address]Dr. Erasmo Smith Eosinophils/100 WBC (Bld) 0.0 % Critically low 0.9-7.0 [facility] Comment on above: Performed By: #### C BC ####[facility] [address], [place] [address]DrMeena Smith Erythrocyte distribution width (RBC) [Ratio] 17.3 % Critically high 11.0-15.0 [facility] Comment on above: Performed By: #### C BC ####[facility] [address] [address]Dr. Heavenean Smith Hematocrit (Bld) [Volume fraction] 31.4 % Critically low 36.0-48.0 [facility] Comment on above: Performed By: #### C BC ####[facility] [address] [address]Dr. Erasmo Smith Hemoglobin (Bld) [Mass/Vol] 10.0 g/dL Critically low 12.0-16.0 [facility] Comment on above: Performed By: #### C BC ####[facility] [address], [place] [address]Dr. Erasmo Smith IG # 0.06 10e3/ul Critically high 0.00-0.03 [facility] Comment on above: Performed By: #### C BC ####[facility] Bufxfemueq[address], [place] [address]Dr. Erasmo Smith IG % 0.4 % Normal 0.0-0.5 [facility] Comment on above: Performed By: #### C BC ####[facility] [address], [place] [address]Dr. Erasmo Smith LYMPH # 1.3 103/ul Normal 1.2-3.8 [facility] Comment on above: Performed By: #### C BC ####[facility] Af[address]xc[address], [place] [address]Dr. Erasmo Smith Lymphocytes/100 WBC (Bld) 8.1 % Critically low 20.5-60.0 [facility] Comment on above: Performed By: #### C BC ####[facility] [address], [place] [address]Dr. Erasmo Smith MANUAL DIFF REQ NO Normal [facility] Comment on above: Performed By: #### C BC ####[facility] [address], [place] [address]Dr. Erasmo Simth MCH (RBC) [Entitic mass] 25.6 pg Critically low 26.7-34.0 [facility] Comment on above: Performed By: #### C BC ####[facility] [address] [id number]. Erasmo Luis MCHC (RBC) [Mass/Vol] 31.8 g/dL Normal 29.9-35.2 [facility] Comment on above: Performed By: #### C BC ####[facility] [address] [address]Dr. Erasmo Smith MCV (RBC) [Entitic vol] 80.3 fL Critically low 81.0-99.0 [facility] Comment on above: Performed By: #### C BC ####[facility] [address] [address]Dr. Erasmo Smith MONO # 0.6 103/ul Normal 0.3-0.8 [facility] Comment on above: Performed By: #### C BC ####[facility] I[address]os[address], [place] [address]Dr. Erasmo Smith Monocytes/100 WBC (Bld) 3.7 % Normal 1.7-12.0 [facility] Comment on above: Performed By: #### C BC ####[facility] Rd[address] [place], [place] [id number]. Erasmo Smith NEUT # 14.5 103/ul Critically high 1.4-6.5 [facility] Comment on above: Performed By: #### C BC ####[facility] [address] [place], [place] [id number]. Erasmo Smith Neutrophils/100 WBC (Bld) 87.6 % Critically high 43.0-75.0 [facility] Comment on above: Performed By: #### C BC ####[facility] [address], [place] [address]Dr. Erasmo Smith Platelet mean volume (Bld) [Entitic vol] 10.0 fL Normal 9.5-13.5 [facility] Comment on above: Performed By: #### C BC ####[facility] [address] [place], [place] [id number]. Erasmo Smith PLT 206 103/ul Normal 150-450 [facility] Comment on above: Performed By: #### C BC ####[facility] [address] [place], [place] [address]Kt. Erasmo Smith RBC 3.91 106/ul Critically low 4.20-5.40 [facility] Comment on above: Performed By: #### C BC ####[facility] [address] [place], [place] [address]Gc. Erasmo Smith WBC 16.5 103/ul Critically high 4.0-11.0 [facility] Comment on above: Performed By: #### C BC ####[facility] [address] [place], [place] [address]Mm. Erasmo Smith ECHOCARDIO M/2D COMPLETEon 0 12-02-2022 ECHOCARDIO M/2D COMPLETE Patient: BREANN STARKS Exam Date: 12/02/2022 : 1945 Gender:F Ordering : KAYLEY HOLMAN . Admission #: [id number] Family : DR LUISANA JOHNSON . Order #: [id number] CLICK HERE TO VIEW EXAM ECHOCARDIOGRAM REPORT [...] on 12/02/2022 at 21:58 Normal [facility] MAGNESIUMon 12-02-2022 Magnesium [Mass/Vol] 2.0 mg/dL Normal 1.8-2.4 [facility] Comment on above: Performed By: #### B JAVA DEVELOPER ANALYST #### [facility] Laboratory [address] [place] [address] Dr. Erasmo Smith PROF 14(COMP METB)on 023 Albumin [Mass/Vol] 2.7 g/dL Critically low 3.4-5.0 [facility] Comment on above: Performed By: #### B JAVA DEVELOPER ANALYST #### [facility] [address] [place] [address] Dr. Erasmo Smith Albumin/Globulin [Mass ratio] 0.6 {ratio} Normal [facility] Comment on above: Performed By: #### B JAVA DEVELOPER ANALYST #### [facility] [address] [place] [address] Dr. Erasmo Smith ALP [Catalytic activity/Vol] 128 U/L Critically high 46-116 [facility] Comment on above: Performed By: #### B JAVA DEVELOPER ANALYST #### [facility] [address] [place] [address] Dr. Erasmo Smith ALT [Catalytic activity/Vol] 34 U/L Normal 14-59 [facility] Comment on above: Performed By: #### B JAVA DEVELOPER ANALYST #### [facility] [address] [place] [address] Dr. Erasmo Smith Anion gap [Moles/Vol] 10.6 mmol/L Normal [facility] Comment on above: Performed By: #### B JAVA DEVELOPER ANALYST #### [facility] [address] [place] [address] Dr. Erasmo Smith AST [Catalytic activity/Vol] 27 U/L Normal 15-37 [facility] Comment on above: Performed By: #### B JAVA DEVELOPER ANALYST #### [facility] [address] [place] [address] Dr. Erasmo Smith Bilirubin [Mass/Vol] 0.5 mg/dL Normal 0.2-1.0 [facility] Comment on above: Performed By: #### B JAVA DEVELOPER ANALYST #### [facility] [address] [place] [address] Dr. Erasmo Smith Calcium [Mass/Vol] 8.4 mg/dL Critically low 8.5-10.1 [facility] Comment on above: Performed By: #### B JAVA DEVELOPER ANALYST #### [facility] [address] [place] [address] Dr. Erasmo Smith Chloride [Moles/Vol] 104 mmol/L Normal 98-107 [facility] Comment on above: Performed By: #### B JAVA DEVELOPER ANALYST #### [facility] [address] [place] [address] Dr. Erasmo Smith CO2 [Moles/Vol] 26.2 mmol/L Normal 21.0-32.0 [facility] Comment on above: Performed By: #### B JAVA DEVELOPER ANALYST #### [facility] [address] [place] [address] Dr. Erasmo Smith Creatinine [Mass/Vol] 0.52 mg/dL Critically low 0.55-1.02 [facility] Comment on above: Performed By: #### B JAVA DEVELOPER ANALYST #### [facility] [address] [place] [address] Dr. Erasmo Smith EGFR-AF BARBADIAN >60 Normal >=60 [facility] Comment on above: Performed By: #### B JAVA DEVELOPER ANALYST #### [facility] [address] [place] [address] Dr. Erasmo Smith EGFR-NON AF BARBADIAN >60 Normal >=60 [facility] Comment on above: Performed By: #### B JAVA DEVELOPER ANALYST #### [facility] [address] [place] [address] Dr. Erasmo Smith Globulin (S) [Mass/Vol] 4.3 g/dL Normal [facility] Comment on above: Performed By: #### B JAVA DEVELOPER ANALYST #### [facility] [address] [place] [address] Dr. Erasmo Smith Glucose [Mass/Vol] 135 mg/dL Critically high 74-106 [facility] Comment on above: Performed By: #### B JAVA DEVELOPER ANALYST #### [facility] [address] [place] [address] Dr. Eramso Smith Potassium [Moles/Vol] 3.8 mmol/L Normal 3.5-5.1 [facility] Comment on above: Performed By: #### B JAVA DEVELOPER ANALYST #### [facility] [address] [place] [address] Dr. Erasmo Smith Protein [Mass/Vol] 7.0 g/dL Normal 6.4-8.2 [facility] Comment on above: Performed By: #### B JAVA DEVELOPER ANALYST #### [facility] [address] [place] [address] Dr. Erasmo Smith Sodium [Moles/Vol] 137 mmol/L Normal 136-145 [facility] Comment on above: Performed By: #### B JAVA DEVELOPER ANALYST #### [facility] [address] [place] [address] Dr. Erasmo Smith Urea nitrogen [Mass/Vol] 16.0 mg/dL Normal 7.0-18.0 [facility] Comment on above: Performed By: #### B JAVA DEVELOPER ANALYST #### [facility] [address] [place] [address] Dr. Erasmo Smith Urea nitrogen/Creatinine [Mass ratio] 30.8 mg/mg Normal [facility] Comment on above: Performed By: #### B JAVA DEVELOPER ANALYST #### [facility] [address] [place] [address] Dr. Erasmo Smith PROTIMEon 12-02-2022 INR Coag (PPP) [Relative time] 4.39 {INR} Critically high [facility] Comment on above: Performed By: #### P T #### [facility] [address] [place] [address] Dr. Erasmo Smith INR GUIDELINES SEE BELOW Normal [facility] Comment on above: Result Comment: ABNER RED INR: 2.0 - 3.0 CONDITIONS NOT LISTED BELOW 2.5 - 3.5 FOR PROSTHETIC HEART VALVE REPLACEMENT 2.5 - 3.5 RECURRENT THROMBOSIS Performed By: #### P T #### [facility] [address] [place] [address] Dr. Erasmo Smith PT Coag (PPP) [Time] 42.8 s Critically high 9.0-11.6 [facility] Comment on above: Performed By: #### P T #### [facility] [address] [place] [address] Dr. Erasmo Smith UA RANDOM W/MICROSCOPICon BACTERIA NONE SEEN Normal NONE SEEN [facility] Comment on above: Performed By: #### U AMIC ####[facility] [address] [address]Dr. Erasmo Smith Bilirubin Ql (U) Negative Normal NEGATIVE [facility] Comment on above: Performed By: #### U AMIC ####[facility] [address] [address]Dr. Erasmo Smith CAST NONE SEEN Normal NONE SEEN [facility] Comment on above: Performed By: #### U AMIC ####[facility] [address], [place] [address]Dr. Erasmo Smith Clarity (U) CLEAR Normal CLEAR [facility] Comment on above: Performed By: #### U AMIC ####[facility] [address], [place] [address]Dr. Erasmo Smith Color (U) YELLOW Normal YELLOW [facility] Comment on above: Performed By: #### U AMIC ####[facility] [address], [place] [address]Dr. Erasmo Smith Crystals LM Nom (Urine sed) NONE SEEN Normal NONE SEEN [facility] Comment on above: Performed By: #### U AMIC ####[facility] [address], [place] [address]Dr. Erasmo Smith Epithelial cells LM Ql (Urine sed) RARE Normal NONE SEEN /RARE [facility] Comment on above: Performed By: #### U AMIC ####[facility] [address], [place] [address]Dr. Erasmo Smith Glucose Ql (U) Negative Normal NEGATIVE [facility] Comment on above: Performed By: #### U AMIC ####[facility] [address], [place] [address]Dr. Erasmo Smith Hemoglobin Ql (U) SMALL Abnormal NEGATIVE [facility] Comment on above: Performed By: #### U AMIC ####[facility] [address], [place] [address]Dr. Erasmo Smith Ketones Ql (U) 15 mg/dl Abnormal NEGATIVE [facility] Comment on above: Performed By: #### U AMIC ####[facility] [address] [place] [address]Dr. Erasmo Smith LEUKOCYTES Negative Normal NEGATIVE [facility] Comment on above: Performed By: #### U AMIC ####[facility] [address] [place] [address]Dr. Erasmo Smith MUCOUS NONE SEEN Normal NONE SEEN [facility] Comment on above: Performed By: #### U AMIC ####[facility] [address] [place] [address]Dr. Erasmo Smith Nitrite Ql (U) Negative Normal NEGATIVE [facility] Comment on above: Performed By: #### U AMIC ####[facility] [address] [address]Dr. Erasmo Smith pH (U) 6.0 [pH] Normal 5-9 [facility] Comment on above: Performed By: #### U AMIC ####[facility] [address], [place] [address]Dr. Erasmo Luis RBC 0-2 Normal 0-2 [facility] Comment on above: Performed By: #### U AMIC ####[facility] [address], [place] [address]Dr. Erasmo Smith SPEC GRAVITY 1.025 Normal 1.005-<=1.02 5 [facility] Comment on above: Performed By: #### U AMIC ####[facility] [address], [place] [address]Dr. Erasmo Smith UA PROTEIN TRACE Normal NEGATIVE/ TRACE [facility] Comment on above: Performed By: #### U AMIC ####[facility] [address], [place] [address]Dr. Erasmo Smith Urobilinogen Qn (U) 4 {Shraddha'U}/dL Abnormal 0.2 - 1.0 [facility] Comment on above: Performed By: #### U AMIC ####[facility] [address] [place] [address]Dr. Heavenean Smith WBC 0-2 Abnormal NONE SEEN [facility] Comment on above: Performed By: #### U AMIC ####[facility] [address] [place], [place] [address]Dr. Erasmo Smith CARDIAC ROSA ELENA 3-6on 3 CK [Catalytic activity/Vol] 53 U/L Normal 26-192 [facility] Comment on above: Performed By: #### C MREP #### [facility] [address] [address] [address] Erasmo BAE.MB [Mass/Vol] 0.90 ng/mL Normal <=3.60 [facility] Comment on above: Performed By: #### C MREP #### [facility] [address] [address] [address] Erasmo Smith HSTROP 116.7 pg/mL Critically high 4.0-51.3 [facility] Comment on above: Result Comment: CUT- OFF POINTS HAVE BEEN ESTABLISHED BASED ON THE FOURTH UNIVERSAL DEFINITIONS OF MYOCARDIAL INFARCTION. THE UPPER REFERENCE LIMIT (URL) OF TROPONIN, DEFINED THE 99TH PERCENTILE OF cTnI DISTRIBUTION IN A REFERENCE POPULATION, HAS BEEN CONFIRMED THE DECISION THRESHOLD FOR UT DIAGNOSIS. Performed By: #### C MREP #### [facility] [address] [address] [address] Erasmo Smith CK [Catalytic activity/Vol] 47 U/L Normal 26-192 [facility] Comment on above: Performed By: #### B JAVA DEVELOPER ANALYST #### [facility] [address] [address] [address] Erasmo Smith CK.MB [Mass/Vol] 1.00 ng/mL Normal <=3.60 [facility] Comment on above: Performed By: #### B JAVA DEVELOPER ANALYST #### [facility] [address] [address] [address] Erasmo Smith HSTROP 154.3 pg/mL Critically high 4.0-51.3 [facility] Comment on above: Result Comment: CUT- OFF POINTS HAVE BEEN ESTABLISHED BASED ON THE FOURTH UNIVERSAL DEFINITIONS OF MYOCARDIAL INFARCTION. THE UPPER REFERENCE LIMIT (URL) OF TROPONIN, DEFINED THE 99TH PERCENTILE OF cTnI DISTRIBUTION IN A REFERENCE POPULATION, HAS BEEN CONFIRMED THE DECISION THRESHOLD FOR UT DIAGNOSIS. Performed By: #### B JAVA DEVELOPER ANALYST #### [facility] [address] [place] [address] Dr. Erasmo Smith CBC W MANUAL DIFFon 12-02-19 ATYPICAL LYMPH # Normal [facility] Comment on above: Performed By: #### C BCMAN #### [facility] [address] [place] [address] Dr. Erasmo Smith ATYPICAL LYMPH % Normal [facility] Comment on above: Performed By: #### C BCMAN #### [facility] [address] [place] [address] Dr. Erasmo Smith BAND # 0.6 103/ul Critically high 0.0-0.3 [facility] Comment on above: Performed By: #### C BCMAN #### [facility] [address] [place] [address] Dr. Erasmo Smith BAND % 3 % Normal 0-5 [facility] Comment on above: Performed By: #### C BCMAN #### [facility] [address] [place] [address] Dr. Erasmo Smith BASOM # 0.00 103/ul Normal 0.00-0.10 [facility] Comment on above: Performed By: #### C BCMAN #### [facility] [address] [place] [address] Dr. Erasmo Smith BASOM % 0.0 % Critically low 0.2-2.0 [facility] Comment on above: Performed By: #### C BCMAN #### [facility] [address] [place] [address] Dr. Erasmo Smith BLAST # Normal [facility] Comment on above: Performed By: #### C BCBLAISE #### [facility] [address] [place] [address] Dr. Erasmo Smith BLAST % Normal [facility] Comment on above: Performed By: #### C BCMAN #### [facility] [address] [place] [address] Dr. Erasmo Smith CORRECTED WBC Normal 4.0-11.0 [facility] Comment on above: Performed By: #### C BCMAN #### [facility] [address] [place] [address] Dr. Erasmo Smith EOS # 0.19 103/ul Normal 0.00-0.70 [facility] Comment on above: Performed By: #### C ANGELA #### [facility] [address] [address] [address] Erasmo Smith EOS% 1.0 % Normal 0.9-7.0 [facility] Comment on above: Performed By: #### C ANGELA #### [facility] [address] [address] [address] Erasmo Smith HCT 32.7 % Critically low 36.0-48.0 [facility] Comment on above: Performed By: #### C ANGELA #### [facility] [address] [address] [address] Erasmo Smith HGB 10.5 g/dl Critically low 12.0-16.0 [facility] Comment on above: Performed By: #### C ANGELA #### [facility] [address] [address] [address] Erasmo Smith LYMPHM # 0.76 103/ul Critically low 1.20-3.80 [facility] Comment on above: Performed By: #### C ANGELA #### [facility] [address] [address] [address] Erasmo Smith LYMPHM% 4.0 % Critically low 20.5-60.[address] [facility] Comment on above: Performed By: #### C ANGELA #### [facility] [address] [address] [address] Erasmo Smith MCH 25.9 pg Critically low 26.7-34.[address] [facility] Comment on above: Performed By: #### C ANGELA #### [facility] [address] [address] [address] Erasmo Smith MCHC 32.1 g/dl Normal 29.9-35.2 [facility] Comment on above: Performed By: #### C ANGELA #### [facility] [address] [address] [address] Erasmo Smith MCV 80.5 fL Critically low 81.0-99.0 [facility] Comment on above: Performed By: #### C BCMAN #### [facility] [address] [address] [address] Erasmo Smith METAMYELOCYTE # Normal [facility] Comment on above: Performed By: #### C BCBLAISE #### [facility] [address] [place] [address] Dr. Erasmo Smith METAMYELOCYTE % Normal [facility] Comment on above: Performed By: #### C BCMAN #### [facility] [address] [address] [address] Erasmo Smith MONOM# 1.14 103/ul Critically high 0.30-0.80 [facility] Comment on above: Performed By: #### C ANGELA #### [facility] [address] [place] [address] Dr. Erasmo Smith MONOM% 6.0 % Normal 1.7-12.0 [facility] Comment on above: Performed By: #### C ANGELA #### [facility] [address] [place] [address] Dr. Erasmo Smith MPV 9.4 fL Critically low 9.5-13.5 [facility] Comment on above: Performed By: #### C ANGELA #### [facility] [address] [place] [address] Dr. Erasmo Smith MYELOCYTE # Normal [facility] Comment on above: Performed By: #### C ANGELA #### [facility] [address] [place] [address] Dr. Erasmo Smith MYELOCYTE % Normal [facility] Comment on above: Performed By: #### C BCBLAISE #### [facility] [address] [place] [address] Dr. Erasmo Smith NRBC Normal [facility] Comment on above: Performed By: #### C BCBLAISE #### [facility] [address] [place] [address] Dr. Erasmo Smith PLT 195 103/ul Normal 150-450 [facility] Comment on above: Performed By: #### C ANGELA #### [facility] [address] [place], [place] [address] Dr. Erasmo Smith RBC 4.06 106/ul Critically low 4.20-5.40 [facility] Comment on above: Performed By: #### C ANGELA #### [facility] [address] [place], [place] [address] Dr. Erasmo Smith RDW 17.7 % Critically high 11.0-15.0 [facility] Comment on above: Performed By: #### C ANGELA #### [facility] [address] [place], [place] [address] Dr. Erasmo Smith SEG # 16.34 103/ul Critically high 1.40-6.50 [facility] Comment on above: Performed By: #### C ANGELA #### [facility] [address] [place], [place] [address] Dr. Erasmo Smith SEG % 86.0 % Critically high 43.0-75.0 [facility] Comment on above: Performed By: #### C ANGELA #### [facility] [address] [place], [place] [address] Dr. Erasmo Smith WBC 19.0 103/ul Critically high 4.0-11.0 [facility] Comment on above: Performed By: #### C ANGELA #### [facility] [address] [place], [place] [address] HEAD WO CONon 2022 CT [...] Date: 2022 14:50 Normal [facility] CULTURE BLOODon 2022 Microscopic examination of blood, culture Culture Observations: Aerobic and Anaerobic bottle positive. BCID: E. Coli Culture Observations: Refer to for VIOLET. Isolate 1 Escherichia coli Growth of Normal [facility] Comment on above: Performed By: #### B LDCX2 ####[facility] [address] [place] [id number] Smith Covid-19 PCR (CVDTB)on 11-11 SARS-CoV-2 (COVID-19) RNA EMILY+probe Ql (Unsp spec) Not detected Normal NOT DETECTED [facility] Comment on [...] for this test is supported by the [employer] of Health and Human Service's declaration that [...] By: #### C MREP #### [facility] [address] [place], [place] [address] Dr. Erasmo Smith LACTATE/LACTIC ACIDon 2022 Lactate [Moles/Vol] 1.2 mmol/L Normal 0.4-2.0 [facility] Comment on above: Performed By: #### L ACT ####[facility] [address] [place], [place] [address]QmDr. Erasmo Smith PH VENOUS BLOODon 2022 PCO2 VENOUS 37.8 mmHg Critically low 40.0-52.0 [facility] Comment on above: Performed By: #### P JOHNEN ####[facility] [address] [place] [address]Dr. Erasmo Smith pH VENOUS 7.417 Normal 7.330-7.430 [facility] Comment on above: Performed By: #### P FEDERICO ####[facility] [address] [place] [address]Dr. Erasmo Smith PROF 14(COMP METB)on 023 Albumin [Mass/Vol] 3.1 g/dL Critically low 3.4-5.0 [facility] Comment on above: Performed By: #### H ALEXSANDER, CMP ####[facility] [address] [place] [address]Dr. Erasmo Smith Albumin/Globulin [Mass ratio] 0.8 {ratio} Normal [facility] Comment on above: Performed By: #### H ALEXSANDER, CMP ####[facility] [address] [place] [address]Dr. Erasmo Smith ALP [Catalytic activity/Vol] 194 U/L Critically high 46-116 [facility] Comment on above: Performed By: #### H ALEXSANDER, CMP ####[facility] [address] [place] [address]Dr. Erasmo Smith ALT [Catalytic activity/Vol] 37 U/L Normal 14-59 [facility] Comment on above: Performed By: #### H ALEXSANDER, CMP ####[facility] [address] [place] [address]Dr. Erasmo Smith Anion gap [Moles/Vol] 14.6 mmol/L Normal [facility] Comment on above: Performed By: #### H ALEXSANDER, CMP ####[facility] [address] [place] [address]Dr. Erasmo Smith AST [Catalytic activity/Vol] 32 U/L Normal 15-37 [facility] Comment on above: Performed By: #### H ALEXSANDER, CMP ####[facility] [address] [place] [address]Dr. Erasmo Smith Bilirubin [Mass/Vol] 1.0 mg/dL Normal 0.2-1.0 [facility] Comment on above: Performed By: #### H STROPN, CMP ####[facility] [address], [place] [address]Dr. Erasmo Smith Calcium [Mass/Vol] 8.9 mg/dL Normal 8.5-10.1 [facility] Comment on above: Performed By: #### H STROPN, CMP ####[facility] [address], [place] [address]Dr. Heavenean Smith Chloride [Moles/Vol] 103 mmol/L Normal 98-107 [facility] Comment on above: Performed By: #### H ALEXSANDER, CMP ####[facility] [address], [place] [address]Dr. Heavenean Smith CO2 [Moles/Vol] 23.6 mmol/L Normal 21.0-32.0 [facility] Comment on above: Performed By: #### H ALEXSANDER, CMP ####[facility] [address], [place] [address]Dr. Erasmo Smith Creatinine [Mass/Vol] 0.69 mg/dL Normal 0.55-1.02 [facility] Comment on above: Performed By: #### H ALEXSANDER, CMP ####[facility] [address], [place] [address]Dr. Heavenean Luis EGFR-AF BARBADIAN >60 Normal >=60 [facility] Comment on above: Performed By: #### H STROPN, CMP ####[facility] [address], [place] [address]Dr. Erasmo Smith EGFR-NON AF BARBADIAN >60 Normal >=60 [facility] Comment on above: Performed By: #### H STROPN, CMP ####[facility] [address], [place] [address]Dr. Erasmo Smith Globulin (S) [Mass/Vol] 4.1 g/dL Normal [facility] Comment on above: Performed By: #### H STROPN, CMP ####[facility] [address], [place] [address]Dr. Erasmo Smith Glucose [Mass/Vol] 121 mg/dL Critically high 74-106 [facility] Comment on above: Performed By: #### H ALEXSANDER, CMP ####[facility] [address] [place] [address]Dr. Erasmo Smith Potassium [Moles/Vol] 3.2 mmol/L Critically low 3.5-5.1 [facility] Comment on above: Performed By: #### H ALEXSANDER, CMP ####[facility] [address] [place] [address]Dr. Erasmo Smith Protein [Mass/Vol] 7.2 g/dL Normal 6.4-8.2 [facility] Comment on above: Performed By: #### H ALEXSANDER, CMP ####[facility] [address] [place] [address]Dr. Erasmo Smith Sodium [Moles/Vol] 138 mmol/L Normal 136-145 [facility] Comment on above: Performed By: #### Kymberly BELTRE, CMP ####[facility] [address] [place] [address]Dr. Erasmo Smith Urea nitrogen [Mass/Vol] 17.0 mg/dL Normal 7.0-18.0 [facility] Comment on above: Performed By: #### Kymberly BELTRE, CMP ####[facility] [address] [place] [address]Dr. Erasmo Smith Urea nitrogen/Creatinine [Mass ratio] 24.6 mg/mg Normal [facility] Comment on above: Performed By: #### H ALEXSANDER, CMP ####[facility] [address] [place] [address]Dr. Erasmo Smith PROTIMEon 2022 INR Coag (PPP) [Relative time] 3.58 {INR} Normal [facility] Comment on above: Performed By: #### P T, PTT #### [facility] [address] [place] [address] [address] Erasmo Smith INR GUIDELINES SEE BELOW Normal [facility] Comment on above: Result Comment: ABNER RED INR: 2.0 - 3.0 CONDITIONS NOT LISTED BELOW 2.5 - 3.5 FOR PROSTHETIC HEART VALVE REPLACEMENT 2.5 - 3.5 RECURRENT THROMBOSIS Performed By: #### P T, PTT #### [facility] [address] [place] [address] Dr. Erasmo Smith PT Coag (PPP) [Time] 35.3 s Critically high 9.0-11.6 [facility] Comment on above: Performed By: #### P T, PTT #### [facility] [address] [place] [address] Dr. Erasmo Smith PTTon 2022 aPTT Coag (Bld) [Time] 40.3 s Critically high 22.3-36.2 [facility] Comment on above: Performed By: #### P T, PTT #### [facility] [address] [place] [address] Dr. Erasmo Smith TROPONIN, HIGH SENSITIVITYon 2022 HSTROP 194.7 pg/mL Critically high 4.0-51.3 [facility] Comment on above: Result Comment: CUT- OFF POINTS HAVE BEEN ESTABLISHED BASED ON THE FOURTH UNIVERSAL DEFINITIONS OF MYOCARDIAL INFARCTION. THE UPPER REFERENCE LIMIT (URL) OF TROPONIN, DEFINED THE 99TH PERCENTILE OF cTnI DISTRIBUTION IN A REFERENCE POPULATION, HAS BEEN CONFIRMED THE DECISION THRESHOLD FOR UT DIAGNOSIS. Performed By: #### C MREP #### [facility] [address] [place] [address] Dr. Erasmo Smith HSTROP 218.0 pg/mL Critically high 4.0-51.3 [facility] Comment on above: Result Comment: CUT- OFF POINTS HAVE BEEN ESTABLISHED BASED ON THE FOURTH UNIVERSAL DEFINITIONS OF MYOCARDIAL INFARCTION. THE UPPER REFERENCE LIMIT (URL) OF TROPONIN, DEFINED THE 99TH PERCENTILE OF cTnI DISTRIBUTION IN A REFERENCE POPULATION, HAS BEEN CONFIRMED THE DECISION THRESHOLD FOR UT DIAGNOSIS. Performed By: #### B JAVA DEVELOPER ANALYST #### [facility] [address] [place] [address] Dr. Erasmo Smith XR CHEST 1 Von [...] ALSTON Date: 2022 14:18 Normal [facility] MAMM SCREEN 3D TOÑITO CADon 11-26-2022 MG MAMM SCREEN 3D TOÑITO CAD Patient: BREANN STARKS Exam Date: 11/26/2022 : 1945 Gender:F Ordering : DR LUISANA JOHNSON . Admission #: [id number] Family : Order #: [id number] CLICK HERE TO VIEW EXAM RADIOLOGY REPORT [...] Family Cancers None LOCATION: [facility] BREAST COMPOSITION: Heterogeneously dense,which may [...] 11/26/2022 at 14:13 Normal [facility] PROF 14(COMP METB)on 022 Albumin [Mass/Vol] 3.8 g/dL Normal 3.4-5.0 [facility] Comment on above: Performed By: #### C MREP #### [facility] [address] [place] [address] Dr. Erasmo Smith Albumin/Globulin [Mass ratio] 0.8 {ratio} Normal [facility] Comment on above: Performed By: #### C MREP #### [facility] [address] [place] [address] Dr. Erasmo Smith ALP [Catalytic activity/Vol] 102 U/L Normal 46-116 [facility] Comment on above: Performed By: #### C MREP #### [facility] [address] [place] [address] Dr. Erasmo Smith ALT [Catalytic activity/Vol] 47 U/L Normal 14-59 [facility] Comment on above: Performed By: #### C MREP #### [facility] [address] [place] [address] Dr. Erasmo Smith Anion gap [Moles/Vol] 12.5 mmol/L Normal [facility] Comment on above: Performed By: #### C MREP #### [facility] [address] [place] [address] Dr. Erasmo Smith AST [Catalytic activity/Vol] 36 U/L Normal 15-37 [facility] Comment on above: Performed By: #### C MREP #### [facility] [address] [place] [address] Dr. Erasmo Smith Bilirubin [Mass/Vol] 0.3 mg/dL Normal 0.2-1.0 [facility] Comment on above: Performed By: #### C MREP #### [facility] [address] [place] [address] Dr. Erasmo Smith Calcium [Mass/Vol] 8.9 mg/dL Normal 8.5-10.1 [facility] Comment on above: Performed By: #### C MREP #### [facility] [address] [place] [address] Dr. Erasmo Smith Chloride [Moles/Vol] 106 mmol/L Normal 98-107 [facility] Comment on above: Performed By: #### C MREP #### [facility] [address] [place] [address] Dr. Erasmo Smith CO2 [Moles/Vol] 26.9 mmol/L Normal 21.0-32.0 [facility] Comment on above: Performed By: #### C MREP #### [facility] [address] [place] [address] [address] Erasmo Smith Creatinine [Mass/Vol] 0.79 mg/dL Normal 0.55-1.02 [facility] Comment on above: Performed By: #### C MREP #### [facility] [address] [place] [address] [address] Erasmo Smith EGFR-AF BARBADIAN >60 Normal >=60 [facility] Comment on above: Performed By: #### C MREP #### [facility] [address] [place] [address] [address] Erasmo Smith EGFR-NON AF BARBADIAN >60 Normal >=60 [facility] Comment on above: Performed By: #### C MREP #### [facility] [address] [place] [address] [address] Erasmo Smith Globulin (S) [Mass/Vol] 4.6 g/dL Normal [facility] Comment on above: Performed By: #### C MREP #### [facility] [address] [place] [address] [address] Erasmo Smith Glucose [Mass/Vol] 102 mg/dL Normal 74-106 [facility] Comment on above: Performed By: #### C MREP #### [facility] [address] [place] [address] [address] Erasmo Smith Potassium [Moles/Vol] 4.4 mmol/L Normal 3.5-5.1 [facility] Comment on above: Performed By: #### C MREP #### [facility] [address] [place] [address] [address] Erasmo Smith Protein [Mass/Vol] 8.4 g/dL Critically high 6.4-8.2 [facility] Comment on above: Performed By: #### C MREP #### [facility] [address] [place] [address] [address] Erasmo Smith Sodium [Moles/Vol] 141 mmol/L Normal 136-145 [facility] Comment on above: Performed By: #### C MREP #### [facility] [address] [place] [address] Dr. Erasmo Smith Urea nitrogen [Mass/Vol] 28.0 mg/dL Critically high 7.0-18.0 [facility] Comment on above: Performed By: #### C MREP #### [facility] [address] [place] [address] Dr. Erasmo Smith Urea nitrogen/Creatinine [Mass ratio] 35.4 mg/mg Normal [facility] Comment on above: Performed By: #### C MREP #### [facility] [address] [place] [address] Dr. Erasmo Smith CBC AUTO DIFFon 07-12-2022 BASO # 0.1 103/ul Normal 0.0-0.1 [facility] Comment on above: Performed By: #### B JAVA DEVELOPER ANALYST #### [facility] [address] [place] [address] Dr. Erasmo Smith Basophils/100 WBC (Bld) 0.5 % Normal 0.2-2.0 [facility] Comment on above: Performed By: #### B JAVA DEVELOPER ANALYST #### [facility] [address] [place] [address] Dr. Erasmo Smith EO # 0.2 103/ul Normal 0.0-0.7 [facility] Comment on above: Performed By: #### B JAVA DEVELOPER ANALYST #### [facility] [address] [place] [address] Dr. Erasmo Smith Eosinophils/100 WBC (Bld) 2.5 % Normal 0.9-7.0 [facility] Comment on above: Performed By: #### B JAVA DEVELOPER ANALYST #### [facility] [address] [place] [address] Dr. Erasmo Smith Erythrocyte distribution width (RBC) [Ratio] 17.2 % Critically high 11.0-15.0 [facility] Comment on above: Performed By: #### B JAVA DEVELOPER ANALYST #### [facility] [address] [place] [address] Dr. Erasmo Smith Hematocrit (Bld) [Volume fraction] 35.0 % Critically low 36.0-48.0 [facility] Comment on above: Performed By: #### B JAVA DEVELOPER ANALYST #### [facility] [address] [place] [address] Dr. Erasmo Smith Hemoglobin (Bld) [Mass/Vol] 11.3 g/dL Critically low 12.0-16.0 [facility] Comment on above: Performed By: #### B JAVA DEVELOPER ANALYST #### [facility] [address] [place] [address] Dr. Erasmo Smith IG # 0.02 10e3/ul Normal 0.00-0.03 [facility] Comment on above: Performed By: #### B JAVA DEVELOPER ANALYST #### [facility] [address] [place] [address] Dr. Erasmo Smith IG % 0.2 % Normal 0.0-0.5 [facility] Comment on above: Performed By: #### B JAVA DEVELOPER ANALYST #### [facility] [address] [place] [address] Dr. Erasmo Smith LYMPH # 2.3 103/ul Normal 1.2-3.8 [facility] Comment on above: Performed By: #### B JAVA DEVELOPER ANALYST #### [facility] [address] [place] [address] Dr. Erasmo Smith Lymphocytes/100 WBC (Bld) 25.4 % Normal 20.5-60.0 [facility] Comment on above: Performed By: #### B JAVA DEVELOPER ANALYST #### [facility] [address] [place] [address] Dr. Erasmo Smith MANUAL DIFF REQ NO Normal [facility] Comment on above: Performed By: #### B JAVA DEVELOPER ANALYST #### [facility] [address] [place] [address] Dr. Erasmo Smith MCH (RBC) [Entitic mass] 25.5 pg Critically low 26.7-34.0 [facility] Comment on above: Performed By: #### B JAVA DEVELOPER ANALYST #### [facility] [address] [place] [address] Dr. Erasmo Smith MCHC (RBC) [Mass/Vol] 32.3 g/dL Normal 29.9-35.2 [facility] Comment on above: Performed By: #### B JAVA DEVELOPER ANALYST #### [facility] [address] [place] [address] [address] Erasmo Smith MCV (RBC) [Entitic vol] 78.8 fL Critically low 81.0-99.0 [facility] Comment on above: Performed By: #### B JAVA DEVELOPER ANALYST #### [facility] [address] [place] [address] [address] Erasmo Smith MONO # 0.7 103/ul Normal 0.3-0.8 [facility] Comment on above: Performed By: #### B JAVA DEVELOPER ANALYST #### [facility] [address] [place] [address] [address] Erasmo Smith Monocytes/100 WBC (Bld) 7.5 % Normal 1.7-12.0 [facility] Comment on above: Performed By: #### B JAVA DEVELOPER ANALYST #### [facility] [address] [place] [address] Dr. Erasmo Smith NEUT # 5.9 103/ul Normal 1.4-6.5 [facility] Comment on above: Performed By: #### B JAVA DEVELOPER ANALYST #### [facility] [address] [place] [address] Dr. Erasmo Smith Neutrophils/100 WBC (Bld) 63.9 % Normal 43.0-75.0 [facility] Comment on above: Performed By: #### B JAVA DEVELOPER ANALYST #### [facility] [address] [place] [address] [address] Erasmo Smith Platelet mean volume (Bld) [Entitic vol] 9.0 fL Critically low 9.5-13.5 [facility] Comment on above: Performed By: #### B JAVA DEVELOPER ANALYST #### [facility] [address] [place] [address] Dr. Erasmo Smith PLT 305 103/ul Normal 150-450 [facility] Comment on above: Performed By: #### B JAVA DEVELOPER ANALYST #### [facility] [address] [place] [address] Dr. Erasmo Smith RBC 4.44 106/ul Normal 4.20-5.40 [facility] Comment on above: Performed By: #### B JAVA DEVELOPER ANALYST #### [facility] [address] [place] [address] [address] Erasmo Smith WBC 9.2 103/ul Normal 4.0-11.0 [facility] Comment on above: Performed By: #### B JAVA DEVELOPER ANALYST #### [facility] [address] [place], [place] [address] CHEST WO CONon [...] PAULA BROWN Date: 2022-05-27 15:27 Normal [facility] HEMOGLOBINon 04-20-2022 Hemoglobin (Bld) [Mass/Vol] 10.6 g/dL Critically low 12.0-16.0 [facility] Comment on above: Performed By: #### H GB ####[facility] [address] [place], [place] [address]IrDr. Erasmo Smith CULTURE SPUTUMon 04-02-2022 CULTURE SPUTUM Isolate 1 Pseudomonas aeruginosa Light growth of ORGANISM 1 Pseudomonas aeruginosa ANTIBIOTIC M.I.C RX STATUS Piperacillin/Tazobacta m 8 S F Ceftazidime 2 S F Imipenem 1 S F Amikacin <=2 S F Gentamicin <=1 S F Tobramycin <=1 S F Ciprofloxacin <=0.25 S F Levofloxacin 0.25 S F Normal [facility] Comment on above: Performed By: #### S PUTCX ####[facility] [address] [place] [address]Dr. Erasmo Smith CYTOLOGYon 03-30-2022 SENT TO REF LAB 03/31/22 [facility] Comment on above: Performed By: #### C YTO #### [facility] [address] [address] [address] Erasmo Smith SPUTUM GRAM STAINon 03-30-20 COMMENTS [facility] Comment on above: Performed By: #### B JAVA DEVELOPER ANALYST #### [facility] [address] [place] [address] Dr. Erasmo Smith DIPHTHEROIDS [facility] Comment on above: Performed By: #### B JAVA DEVELOPER ANALYST #### [facility] [address] [place] [address] Dr. Erasmo Smith EPITHELIALS <25 Normal [facility] Comment on above: Performed By: #### B JAVA DEVELOPER ANALYST #### [facility] [address] [address] Dr. Erasmo Smith FUNGAL ELEMENTS [facility] Comment on above: Performed By: #### B JAVA DEVELOPER ANALYST #### [facility] [address] [place] [address] Dr. Erasmo CINTRON NEG BACILLI FEW Normal [facility] Comment on above: Performed By: #### B JAVA DEVELOPER ANALYST #### [facility] [address] [place] [address] Dr. Erasmo CINTRON NEG DIPPLOCOCCI [facility] Comment on above: Performed By: #### B JAVA DEVELOPER ANALYST #### [facility] [address] [place] [address] Dr. Erasmo CINTRON POS BACILLI [facility] Comment on above: Performed By: #### B JAVA DEVELOPER ANALYST #### [facility] [address] [place] [address] Dr. Erasmo Smith GRAM POSITIVE COCCI MANY Normal [facility] Comment on above: Performed By: #### B JAVA DEVELOPER ANALYST #### [facility] [address] [address] [address] Erasmo Smith WBC (Bld) [#/Vol] 10*3/uL Normal [facility] Comment on above: Performed By: #### B JAVA DEVELOPER ANALYST #### [facility] [id number] Erasmo Smith SPUTUM CULTUREon 03-01-2022 Epithelial cells LM Ql (Urine sed) Few Normal [facility] Comment on above: Performed By: #### C XSPTUM ####[facility] [address] [address]Dr. Erasmo Smith Gram Stain Evaluation Comment Normal [facility] Comment on above: Result Comment: This specimen is of good quality and is acceptable for routine bacterial culture. Performed By: #### C XSPTUM ####[facility] [id number] [address]Dr. Erasmo Smith Lower Respiratory Culture Final report [facility] Comment on above: Performed By: #### C XSPTUM ####[facility] [id number] [address]Dr. Erasmo Smith Result 1 Comment Normal [facility] Comment on above: Result Comment: Few gram positive cocci Performed By: #### C XSPTUM ####[facility] [id number] [address]Dr. Erasmo Smith Result Comment: Rout ine respiratory adria Result 2 Normal [facility] Comment on above: Performed By: #### C XSPTUM ####[facility] [id number] [address]Dr. Erasmo Smith Result 3 Normal [facility] Comment on above: Performed By: #### C XSPTUM ####[facility] [address] [address]Dr. Erasmo Smith Result 4 Normal [facility] Comment on above: Performed By: #### C XSPTUM ####[facility] [id number] [id number]. Erasmo Smith White Blood Cells Few Normal [facility] Comment on above: Performed By: #### C XSPTUM ####[facility] [id number] [address]Dr. Erasmo Smith BNPon 02-24-2022 Natriuretic peptide B (Bld) [Mass/Vol] 319.0 pg/mL Normal <=900.0 [facility] Comment on above: Performed By: #### B JAVA DEVELOPER ANALYST #### [facility] [address] [place] [address] Dr. Erasmo Smith CBC AUTO DIFFon 02-24-2022 BASO # 0.1 103/ul Normal 0.0-0.1 [facility] Comment on above: Performed By: #### C MREP #### [facility] [address] [place] [address] Dr. Erasmo Smith Basophils/100 WBC (Bld) 0.5 % Normal 0.2-2.0 [facility] Comment on above: Performed By: #### C MREP #### [facility] [address] [place] [address] Dr. Erasmo Smith EO # 0.3 103/ul Normal 0.0-0.7 [facility] Comment on above: Performed By: #### C MREP #### [facility] [address] [place] [address] Dr. Erasmo Smith Eosinophils/100 WBC (Bld) 3.1 % Normal 0.9-7.0 [facility] Comment on above: Performed By: #### C MREP #### [facility] [address] [place] [address] Dr. Erasmo Smith Erythrocyte distribution width (RBC) [Ratio] 15.1 % Critically high 11.0-15.0 [facility] Comment on above: Performed By: #### C MREP #### [facility] [address] [place] [address] Dr. Erasmo Smith Hematocrit (Bld) [Volume fraction] 33.9 % Critically low 36.0-48.0 [facility] Comment on above: Performed By: #### C MREP #### [facility] [address] [place] [address] Dr. Erasmo Smith Hemoglobin (Bld) [Mass/Vol] 10.7 g/dL Critically low 12.0-16.0 [facility] Comment on above: Performed By: #### C MREP #### [facility] [address] [place] [address] Dr. Erasmo Smith IG # 0.03 10e3/ul Normal 0.00-0.03 [facility] Comment on above: Performed By: #### C MREP #### [facility] [address] [place] [address] Dr. Erasmo Smith IG % 0.3 % Normal 0.0-0.5 [facility] Comment on above: Performed By: #### C MREP #### [facility] [address] [place] [address] Dr. Erasmo Smith LYMPH # 2.8 103/ul Normal 1.2-3.8 [facility] Comment on above: Performed By: #### C MREP #### [facility] [address] [place] [address] Dr. Erasmo Smith Lymphocytes/100 WBC (Bld) 30.6 % Normal 20.5-60.0 [facility] Comment on above: Performed By: #### C MREP #### [facility] [address] [place] [address] Dr. Erasmo Smith MANUAL DIFF REQ NO Normal [facility] Comment on above: Performed By: #### C MREP #### [facility] [address] [place] [address] Dr. Erasmo Smith MCH (RBC) [Entitic mass] 26.9 pg Normal 26.7-34.0 [facility] Comment on above: Performed By: #### C MREP #### [facility] [address] [place] [address] Dr. Erasmo mSith MCHC (RBC) [Mass/Vol] 31.6 g/dL Normal 29.9-35.2 [facility] Comment on above: Performed By: #### C MREP #### [facility] [address] [place] [address] Dr. Erasmo Smith MCV (RBC) [Entitic vol] 85.2 fL Normal 81.0-99.0 [facility] Comment on above: Performed By: #### C MREP #### [facility] [address] [place] [address] Dr. Erasmo Smith MONO # 0.7 103/ul Normal 0.3-0.8 [facility] Comment on above: Performed By: #### C MREP #### [facility] [address] [place] [address] Dr. Erasmo Smith Monocytes/100 WBC (Bld) 7.9 % Normal 1.7-12.0 [facility] Comment on above: Performed By: #### C MREP #### [facility] [address] [place] [address] Dr. Erasmo Smith NEUT # 5.3 103/ul Normal 1.4-6.5 [facility] Comment on above: Performed By: #### C MREP #### [facility] [address] [place] [address] Dr. Erasmo Smith Neutrophils/100 WBC (Bld) 57.6 % Normal 43.0-75.0 [facility] Comment on above: Performed By: #### C MREP #### [facility] [address] [place] [address] Dr. Erasmo Smith Platelet mean volume (Bld) [Entitic vol] 9.0 fL Critically low 9.5-13.5 [facility] Comment on above: Performed By: #### C MREP #### [facility] [address] [place] [address] Dr. Erasmo Smith PLT 249 103/ul Normal 150-450 [facility] Comment on above: Performed By: #### C MREP #### [facility] [address] [place] [address] Dr. Erasmo Smith RBC 3.98 106/ul Critically low 4.20-5.40 [facility] Comment on above: Performed By: #### C MREP #### [facility] [address] [place] [address] Dr. Erasmo Smith WBC 9.1 103/ul Normal 4.0-11.0 [facility] Comment on above: Performed By: #### C MREP #### [facility] [address] [address] [address] Erasmo Smith CTA CHEST WO W [...] by: PAULA BROWN Date: 2022-02-24 18:24 Normal [facility] D-DIMERon 02-24-2022 D-DIMER 1.36 mg/L FEU Critically high <=0.59 [facility] Comment on above: Performed By: #### D DIM #### [facility] [address] [place] [address] Dr. Erasmo Smith D-DIMER COMMENTS SEE BELOW Normal [facility] Comment on above: Result Comment: Incr eases [...] By: #### D DIM #### [facility] [address] [place] [address] Dr. Erasmo Smith PROF 14(COMP METB)on 022 Albumin [Mass/Vol] 3.6 g/dL Normal 3.4-5.0 [facility] Comment on above: Performed By: #### C MREP #### [facility] [address] [place] [address] Dr. Erasmo Smith Albumin/Globulin [Mass ratio] 0.8 {ratio} Normal [facility] Comment on above: Performed By: #### C MREP #### [facility] [address] [place] [address] Dr. Erasmo Smith ALP [Catalytic activity/Vol] 95 U/L Normal 46-116 [facility] Comment on above: Performed By: #### C MREP #### [facility] [address] [place] [address] Dr. Erasmo Smith ALT [Catalytic activity/Vol] 45 U/L Normal 14-59 [facility] Comment on above: Performed By: #### C MREP #### [facility] [address] [place] [address] Dr. Erasmo Smith Anion gap [Moles/Vol] 15.9 mmol/L Normal [facility] Comment on above: Performed By: #### C MREP #### [facility] [address] [place] [address] Dr. Erasmo Smith AST [Catalytic activity/Vol] 33 U/L Normal 15-37 [facility] Comment on above: Performed By: #### C MREP #### [facility] [address] [place] [address] Dr. Erasmo Smith Bilirubin [Mass/Vol] 0.5 mg/dL Normal 0.2-1.0 [facility] Comment on above: Performed By: #### C MREP #### [facility] [address] [place] [address] Dr. Erasmo Smith Calcium [Mass/Vol] 9.1 mg/dL Normal 8.5-10.1 [facility] Comment on above: Performed By: #### C MREP #### [facility] [address] [address] [address] Erasmo Smith Chloride [Moles/Vol] 103 mmol/L Normal 98-107 [facility] Comment on above: Performed By: #### C MREP #### [facility] [address] [place] [address] Dr. Erasmo Smith CO2 [Moles/Vol] 25.1 mmol/L Normal 21.0-32.0 [facility] Comment on above: Performed By: #### C MREP #### [facility] [address] [place] [address] Dr. Erasmo Smith Creatinine [Mass/Vol] 0.77 mg/dL Normal 0.55-1.02 [facility] Comment on above: Performed By: #### C MREP #### [facility] [address] [place] [address] Dr. Erasmo Smith EGFR-AF BARBADIAN >60 Normal >=60 [facility] Comment on above: Performed By: #### C MREP #### [facility] [address] [place] [address] Dr. Erasmo Smith EGFR-NON AF BARBADIAN >60 Normal >=60 [facility] Comment on above: Performed By: #### C MREP #### [facility] [address] [place] [address] Dr. Erasmo Smith Globulin (S) [Mass/Vol] 4.3 g/dL Normal [facility] Comment on above: Performed By: #### C MREP #### [facility] [address] [place] [address] Dr. Erasmo Smith Glucose [Mass/Vol] 92 mg/dL Normal 74-106 [facility] Comment on above: Performed By: #### C MREP #### [facility] [address] [address] [address] Erasmo Smith Potassium [Moles/Vol] 4.0 mmol/L Normal 3.5-5.1 [facility] Comment on above: Performed By: #### C MREP #### [facility] [address] [address] [address] Erasmo Smith Protein [Mass/Vol] 7.9 g/dL Normal 6.4-8.2 [facility] Comment on above: Performed By: #### C MREP #### [facility] [address] [address] [address] Erasmo Smith Sodium [Moles/Vol] 140 mmol/L Normal 136-145 [facility] Comment on above: Performed By: #### C MREP #### [facility] [address] [address] [address] Erasmo Smith Urea nitrogen [Mass/Vol] 17.0 mg/dL Normal 7.0-18.0 [facility] Comment on above: Performed By: #### C MREP #### [facility] [address] [address] [address] Erasmo Smith Urea nitrogen/Creatinine [Mass ratio] 22.1 mg/mg Normal [facility] Comment on above: Performed By: #### C MREP #### [facility] [address] [address] [address] Erasmo Smith PROTIMEon 02-24-2022 INR Coag (PPP) [Relative time] 2.28 {INR} Normal [facility] Comment on above: Performed By: #### P T, PTT ####[facility] [address] [address]Dr. Erasmo Smith INR GUIDELINES SEE BELOW Normal [facility] Comment on above: Result Comment: ABNER RED INR: 2.0 - 3.0 CONDITIONS NOT LISTED BELOW 2.5 - 3.5 FOR PROSTHETIC HEART VALVE REPLACEMENT 2.5 - 3.5 RECURRENT THROMBOSIS Performed By: #### P T, PTT ####[facility] [id number] [address]DrMeena Smith PT Coag (PPP) [Time] 23.3 s Critically high 9.0-11.6 [facility] Comment on above: Performed By: #### P T, PTT ####[facility] [address] [place], [place] [address]DxDr. Erasmo Smith PTTon 02-24-2022 aPTT Coag (Bld) [Time] 34.7 s Normal 22.3-36.2 [facility] Comment on above: Performed By: #### P T, PTT ####[facility] [id number] [id number] Smith TROPONIN, HIGH SENSITIVITYon 02-24-2022 HSTROP 6.6 pg/mL Normal 4.0-51.3 [facility] Comment on above: Result Comment: CUT- OFF POINTS HAVE BEEN ESTABLISHED BASED ON THE FOURTH UNIVERSAL DEFINITIONS OF MYOCARDIAL INFARCTION. THE UPPER REFERENCE LIMIT (URL) OF TROPONIN, DEFINED THE 99TH PERCENTILE OF cTnI DISTRIBUTION IN A REFERENCE POPULATION, HAS BEEN CONFIRMED THE DECISION THRESHOLD FOR UT DIAGNOSIS. Performed By: #### C MREP #### [facility] [address] [place], [place] [address] Dr. Erasmo Smith PROTHROMBIN TIMEon 2 INR Coag (PPP) [Relative time] 1.2 {INR} High 0.86-1.16 [facility] Comment on above: Result Comment: INR Theraputic Range: 2.0-3.5 Performed at [address] [address] PT Coag (PPP) [Time] 12.7 s Normal 9.3-12.7 [facility] ANTICOAGULANT COUMADIN Normal [facility] Vital Signs Date Time Vital Sign Value Performing Clinician Sophie echols 04-24-2025 09:41-0400 Body height 144.8 cm Shannon Robles JAVA DEVELOPER ANALYST Work Phone: [facility] 04-24-2025 09:41-0400 Body mass index (BMI) [Ratio] 48.91 kg/m2 Shannon Robles JAVA DEVELOPER ANALYST Work Phone: [facility] 04-24-2025 09:41-0400 Body weight 102.51 kg Shannon Robles JAVA DEVELOPER ANALYST Work Phone: [facility] 04-24-2025 09:41-0400 Diastolic blood pressure 68 mm[Hg] Shannon Robles JAVA DEVELOPER ANALYST Work Phone: [facility] 04-24-2025 09:41-0400 Heart rate 81 /min Shannon Robles JAVA DEVELOPER ANALYST Work Phone: [facility] 04-24-2025 09:41-0400 Respiratory rate 17 /min Shannon Robles JAVA DEVELOPER ANALYST Work Phone: [facility] 04-24-2025 09:41-0400 SaO2% (BldA) [Mass fraction] 97 % Shannon Robles JAVA DEVELOPER ANALYST Work Phone: [facility] 04-24-2025 09:41-0400 Systolic blood pressure 138 mm[Hg] Shannon Robles JAVA DEVELOPER ANALYST Work Phone: [facility] 04-18-2025 11:04-0400 Body height 175.3 cm Eleanor Hemmer PA Work Phone: [facility] 04-18-2025 11:04-0400 Body mass index (BMI) [Ratio] 33.34 kg/m2 Eleanor Hemmer PA Work Phone: [facility] 04-18-2025 11:04-0400 Body weight 102.42 kg Eleanor Hemmer PA Work Phone: [facility] 04-18-2025 11:04-0400 Diastolic blood pressure 68 mm[Hg] Eleanor Hemmer PA Work Phone: [facility] 04-18-2025 11:04-0400 Heart rate 71 /min Eleanor Hemmer PA Work Phone: [facility] 04-18-2025 11:04-0400 Respiratory rate 16 /min Eleanor Hemmer PA Work Phone: [facility] 04-18-2025 11:04-0400 SaO2% (BldA) [Mass fraction] 96 % Eleanor Hemmer PA Work Phone: [facility] 04-18-2025 11:04-0400 Systolic blood pressure 122 mm[Hg] Eleanor Hemmer PA Work Phone: [facility] 02-18-2025 11:38-0400 Body height 149.9 cm Renny Hansen MD Work Phone: [facility] 02-18-2025 11:38-0400 Body mass index (BMI) [Ratio] 45.04 kg/m2 Renny Hansen MD Work Phone: [facility] 02-18-2025 11:38-0400 Body weight 101.15 kg Renny Hansen MD Work Phone: [facility] 02-18-2025 11:38-0400 Diastolic blood pressure 72 mm[Hg] Renny Hansen MD Work Phone: [facility] 02-18-2025 11:38-0400 Heart rate 61 /min Renny Hansen MD Work Phone: [facility] 02-18-2025 11:38-0400 Respiratory rate 16 /min Renny Hansen MD Work Phone: [facility] 02-18-2025 11:38-0400 SaO2% (BldA) [Mass fraction] 96 % Renny Hansen MD Work Phone: [facility] 02-18-2025 11:38-0400 Systolic blood pressure 128 mm[Hg] Renny Hansen MD Work Phone: [facility] 12-17-2024 10:58-0400 Body height 149.9 cm Renny Hansen MD Work Phone: [facility] 12-17-2024 10:58-0400 Body mass index (BMI) [Ratio] 44.84 kg/m2 Renny Hansen MD Work Phone: [facility] 12-17-2024 10:58-0400 Body weight 100.7 kg Renny Hansen MD Work Phone: [facility] 12-17-2024 10:58-0400 Diastolic blood pressure 68 mm[Hg] Renny Hansen MD Work Phone: [facility] 12-17-2024 10:58-0400 Heart rate 75 /min Renny Hansen MD Work Phone: [facility] 12-17-2024 10:58-0400 SaO2% (BldA) [Mass fraction] 95 % Renny Hansen MD Work Phone: [facility] 12-17-2024 10:58-0400 Systolic blood pressure 130 mm[Hg] Renny Hansen MD Work Phone: [facility] 10-29-2024 14:47-0500 Body weight 98.42 kg Renny Hansen II Work Phone: [facility] 10-29-2024 14:47-0500 Diastolic blood pressure 65 mm[Hg] Renny Hansen II Work Phone: [facility] 10-29-2024 14:47-0500 Heart rate 66 /min Renny Hansen II Work Phone: [facility] 10-29-2024 14:47-0500 Respiratory rate 20 /min Renny Hansen II Work Phone: [facility] 10-29-2024 14:47-0500 SaO2% (BldA) [Mass fraction] 97 % Renny Hansen II Work Phone: [facility] 10-29-2024 14:47-0500 Systolic blood pressure 150 mm[Hg] Renny Hansen II Work Phone: [facility] 10-17-2024 11:35-0500 Body height 149.9 cm Renny Hansen MD Work Phone: [facility] 10-17-2024 11:35-0500 Body mass index (BMI) [Ratio] 44.23 kg/m2 Renny Hansen MD Work Phone: [facility] 10-17-2024 11:35-0500 Body weight 99.34 kg Renny Hansen MD Work Phone: [facility] 10-17-2024 11:35-0500 Diastolic blood pressure 76 mm[Hg] Renny Hansen MD Work Phone: [facility] 10-17-2024 11:35-0500 Heart rate 61 /min Renny Hansen MD Work Phone: [facility] 10-17-2024 11:35-0500 SaO2% (BldA) [Mass fraction] 97 % Renny Hansen MD Work Phone: [facility] 10-17-2024 11:35-0500 Systolic blood pressure 138 mm[Hg] Renny Hansen MD Work Phone: [facility] 10-04-2024 14:56-0500 Body height 149.9 cm Dmitriy Isidrafay DO Work Phone: [facility] 10-04-2024 14:56-0500 Body mass index (BMI) [Ratio] 45.04 kg/m2 Dmitriy Laffay DO Work Phone: [facility] 10-04-2024 14:56-0500 Body weight 101.15 kg Dmitriy Laffay DO Work Phone: [facility] 10-04-2024 14:56-0500 Diastolic blood pressure 70 mm[Hg] Dmitriy Laffay DO Work Phone: [facility] 10-04-2024 14:56-0500 Systolic blood pressure 120 mm[Hg] Dmitriy Laffay DO Work Phone: [facility] 09-25-2024 11:13-0500 Body height 149.86 cm Renny Hansen II Work Phone: [facility] 09-25-2024 11:13-0500 Body mass index (BMI) [Ratio] 44.6 kg/m2 Renny Hansen II Work Phone: [facility] 09-25-2024 11:13-0500 Body temperature 97.3 [degF] Renny Hansen II Work Phone: [facility] 09-25-2024 11:13-0500 Body weight 100.24 kg Renny Hansen II Work Phone: [facility] 09-25-2024 11:13-0500 Diastolic blood pressure 69 mm[Hg] Renny Hansen II Work Phone: [facility] 09-25-2024 11:13-0500 Heart rate 72 /min Renny Hansen II Work Phone: [facility] 09-25-2024 11:13-0500 Respiratory rate 16 /min Renny Hansen II Work Phone: [facility] 09-25-2024 11:13-0500 SaO2% (BldA) [Mass fraction] 98 % Renny Hansen II Work Phone: [facility] 09-25-2024 11:13-0500 Systolic blood pressure 173 mm[Hg] Renny Hansen II Work Phone: [facility] 09-19-2024 15:12-0500 Body height 149.9 cm Luisana Leal JAVA DEVELOPER ANALYST Work Phone: [facility] 09-19-2024 15:12-0500 Body mass index (BMI) [Ratio] 44.07 kg/m2 Luisana Leal JAVA DEVELOPER ANALYST Work Phone: [facility] 09-19-2024 15:12-0500 Body weight 98.97 kg Luisana Leal JAVA DEVELOPER ANALYST Work Phone: [facility] 09-19-2024 15:12-0500 Diastolic blood pressure 68 mm[Hg] Luisana Leal JAVA DEVELOPER ANALYST Work Phone: [facility] 09-19-2024 15:12-0500 Heart rate 63 /min Luisana Leal JAVA DEVELOPER ANALYST Work Phone: [facility] 09-19-2024 15:12-0500 Respiratory rate 18 /min Luisana Leal JAVA DEVELOPER ANALYST Work Phone: [facility] 09-19-2024 15:12-0500 SaO2% (BldA) [Mass fraction] 95 % Luisana Leal JAVA DEVELOPER ANALYST Work Phone: [facility] 09-19-2024 15:12-0500 Systolic blood pressure 128 mm[Hg] Luisana Leal JAVA DEVELOPER ANALYST Work Phone: [facility] 09-18-2024 10:09-0500 Body mass index (BMI) [Ratio] 43.83 kg/m2 Christopher Jose Roberto DO Work Phone: [place] [facility] 09-18-2024 10:09-0500 Body weight 98.43 kg Christopher Jose Roberto DO Work Phone: [facility] 09-18-2024 10:09-0500 Diastolic blood pressure 86 mm[Hg] Christopher Jose Roberto DO Work Phone: [facility] 09-18-2024 10:09-0500 Heart rate 66 /min Christopher Jose Roberto DO Work Phone: [facility] 09-18-2024 10:09-0500 SaO2% (BldA) [Mass fraction] 91 % Christopher Jose Roberto DO Work Phone: [facility] 09-18-2024 10:09-0500 Systolic blood pressure 136 mm[Hg] Hayderopher Jose Roberto DO Work Phone: [facility] 09-10-2024 13:00-0500 Body temperature 97.2 [degF] Renny Hansen II Work Phone: [facility] 09-10-2024 13:00-0500 Diastolic blood pressure 67 mm[Hg] Renny Hansen II Work Phone: [facility] 09-10-2024 13:00-0500 Heart rate 72 /min Renny Hansen II Work Phone: [facility] 09-10-2024 13:00-0500 Respiratory rate 19 /min Renny Hansen II Work Phone: [facility] 09-10-2024 13:00-0500 SaO2% (BldA) [Mass fraction] 96 % Renny Hansen II Work Phone: [facility] 09-10-2024 13:00-0500 Systolic blood pressure 157 mm[Hg] Renny Hansen II Work Phone: [facility] 08-24-2024 13:00-0500 Body height 149.86 cm Renny Hansen II Work Phone: [facility] 08-24-2024 13:00-0500 Body mass index (BMI) [Ratio] 45.4 kg/m2 Renny Hansen II Work Phone: [facility] 08-24-2024 13:00-0500 Body temperature 97.8 [degF] Renny Hansen II Work Phone: [facility] 08-24-2024 13:00-0500 Body weight 102.05 kg Renny Hansen II Work Phone: [facility] 08-24-2024 13:00-0500 Diastolic blood pressure 69 mm[Hg] Renny Hansen II Work Phone: [facility] 08-24-2024 13:00-0500 Heart rate 61 /min Renny Hansen II Work Phone: [facility] 08-24-2024 13:00-0500 Respiratory rate 16 /min Renny Hansen II Work Phone: [facility] 08-24-2024 13:00-0500 SaO2% (BldA) [Mass fraction] 98 % Renny Hansen II Work Phone: [facility] 08-24-2024 13:00-0500 Systolic blood pressure 137 mm[Hg] Renny Hansen II Work Phone: [facility] 08-16-2024 10:33-0500 Body height 149.9 cm Renny Hansen MD Work Phone: [facility] 08-16-2024 10:33-0500 Body mass index (BMI) [Ratio] 44.23 kg/m2 Renny Hansen MD Work Phone: [facility] 08-16-2024 10:33-0500 Body weight 99.34 kg Renny Hansen MD Work Phone: [facility] 08-16-2024 10:33-0500 Diastolic blood pressure 80 mm[Hg] Renny Hansen MD Work Phone: [facility] 08-16-2024 10:33-0500 Heart rate 66 /min Renny Hansen MD Work Phone: [facility] 08-16-2024 10:33-0500 SaO2% (BldA) [Mass fraction] 95 % Renny Hansen MD Work Phone: [facility] 08-16-2024 10:33-0500 Systolic blood pressure 132 mm[Hg] Renny Hansen MD Work Phone: [facility] 08-02-2024 10:51-0500 Body height 149.9 cm Renny Hansen MD Work Phone: [facility] 08-02-2024 10:51-0500 Body mass index (BMI) [Ratio] 44.84 kg/m2 Renny Hansen MD Work Phone: [facility] 08-02-2024 10:51-0500 Body temperature 98.4 [degF] Renny Hansen MD Work Phone: [facility] 08-02-2024 10:51-0500 Body weight 100.7 kg Renny Hansen MD Work Phone: [facility] 08-02-2024 10:51-0500 Diastolic blood pressure 72 mm[Hg] Renny Hansen MD Work Phone: [facility] 08-02-2024 10:51-0500 Heart rate 60 /min Renny Hansen MD Work Phone: [facility] 08-02-2024 10:51-0500 SaO2% (BldA) [Mass fraction] 95 % Renny Hansen MD Work Phone: [facility] 08-02-2024 10:51-0500 Systolic blood pressure 134 mm[Hg] Renny Hansen MD Work Phone: [facility] 07-24-2024 10:48-0500 Body height 149.9 cm Eleanor SANTOS Work Phone: [facility] 07-24-2024 10:48-0500 Body mass index (BMI) [Ratio] 45.85 kg/m2 Eleanor Dumont PA Work Phone: [facility] 07-24-2024 10:48-0500 Body weight 102.97 kg Eleanor Hemmer PA Work Phone: [facility] 07-24-2024 10:48-0500 Diastolic blood pressure 68 mm[Hg] Eleanor Estevezmer PA Work Phone: [facility] 07-24-2024 10:48-0500 Heart rate 60 /min Eleanor Hemmer PA Work Phone: [facility] 07-24-2024 10:48-0500 SaO2% (BldA) [Mass fraction] 96 % Eleanor Hemmer PA Work Phone: [facility] 07-24-2024 10:48-0500 Systolic blood pressure 124 mm[Hg] Eleanor Hemmer PA Work Phone: [facility] 07-05-2024 08:50-0400 Body height 149.9 cm Renny Hansen MD Work Phone: [facility] 07-05-2024 08:50-0400 Body mass index (BMI) [Ratio] 46.66 kg/m2 Renny Hansen MD Work Phone: [facility] 07-05-2024 08:50-0400 Body weight 104.78 kg Renny Hansen MD Work Phone: [facility] 07-05-2024 08:50-0400 Diastolic blood pressure 74 mm[Hg] Renny Hansen MD Work Phone: [facility] 07-05-2024 08:50-0400 Heart rate 69 /min Renny Hansen MD Work Phone: [facility] 07-05-2024 08:50-0400 SaO2% (BldA) [Mass fraction] 96 % Renny Hansen MD Work Phone: [facility] 07-05-2024 08:50-0400 Systolic blood pressure 130 mm[Hg] Renny Hansen MD Work Phone: [facility] 05-31-2024 13:46-0400 Body height 149.9 cm Monster Calvillo NP Work Phone: [facility] 05-31-2024 13:46-0400 Body mass index (BMI) [Ratio] 47.87 kg/m2 Monster Kilpatrickpatrick JAVA DEVELOPER ANALYST Work Phone: [facility] 05-31-2024 13:46-0400 Body temperature 98.4 [degF] Monster Kilpatrickpatrick JAVA DEVELOPER ANALYST Work Phone: [facility] 05-31-2024 13:46-0400 Body weight 107.5 kg Monster Kilpatrickpatrick JAVA DEVELOPER ANALYST Work Phone: [facility] 05-31-2024 13:46-0400 Diastolic blood pressure 80 mm[Hg] Monster Kilpatrickpatrick JAVA DEVELOPER ANALYST Work Phone: [facility] 05-31-2024 13:46-0400 Heart rate 73 /min Monster Kilpartickpatrick JAVA DEVELOPER ANALYST Work Phone: [facility] 05-31-2024 13:46-0400 SaO2% (BldA) [Mass fraction] 95 % Monster Kilpatrickpatrick JAVA DEVELOPER ANALYST Work Phone: [facility] 05-31-2024 13:46-0400 Systolic blood pressure 140 mm[Hg] Monster Kilpatrickpatrick JAVA DEVELOPER ANALYST Work Phone: [facility] 05-22-2024 13:17-0400 Body height 149.9 cm Boo Sherwin PA-C Work Phone: [facility] 05-22-2024 13:17-0400 Body mass index (BMI) [Ratio] 44.43 kg/m2 Boo Sherwin PA-C Work Phone: [facility] 05-22-2024 13:17-0400 Body weight 99.79 kg Boo Sherwin PA-C Work Phone: [facility] 03-02-2024 11:51-0400 Blood Pressure Location Jair ALEXANDER [facility] [place] 03-02-2024 11:51-0400 Diastolic blood pressure 75 mm[Hg] Jair NILL [facility] [place] 03-02-2024 11:51-0400 Heart rate 71 /min Jair ALEXANDER [facility] [place] 03-02-2024 11:51-0400 Respiratory rate 16 /min Jair ALEXANDER [facility] [place] 03-02-2024 11:51-0400 Systolic blood pressure 118 mm[Hg] Jair ALEXANDER [facility] [place] 10-07-2021 16:00-0500 Body height 146.69 cm Hong Nevarez Other [employer] [facility] [employer] Other 10-07-2021 16:00-0500 Body mass index (BMI) [Ratio] 51.01 kg/m2 Hong Nevarez Other [employer] Other 10-07-2021 16:00-0500 Body weight 109.77 kg Hong Nevarez Other [employer] Other 08-26-2021 15:15-0500 Body height 146.69 cm Hong Nevarez Other [employer] Other 08-26-2021 15:15-0500 Body mass index (BMI) [Ratio] 51.07 kg/m2 Hong Nevarez Other [employer] Other 08-26-2021 15:15-0500 Body weight 109.91 kg Hong Nevarez Other [employer] Other Encounters Encounter Date Encounter Type Care Provider Facility Start: 04-24-2025 End: 04-24-2025 Cristobal Roblse NP Work Phone: [facility] Start: 04-24-2025 End: 04-24-2025 Bamboo flowsheet Shannon Robles JAVA DEVELOPER ANALYST Work Phone: [facility] Start: 04-24-2025 End: 04-24-2025 Office outpatient visit 25 minutes Shannon Robles JAVA DEVELOPER ANALYST Work Phone: [facility] Comment on above: Hematuria, unspecifi ed type Start: 04-18-2025 End: 04-18-2025 Bamboo flowsheet Eleanor Dumont PA Work Phone: [facility] Start: 04-18-2025 End: 04-18-2025 Bamboo flowsheet Eleanor Dumont PA Work Phone: [facility] Start: 04-18-2025 End: 04-18-2025 Office outpatient visit 15 minutes Eleanor Dumont PA Work Phone: [facility] Comment on above: Chronic obstructive pulmonary disease, unspecified COPD type (HCC) (Primary Dx) Start: 04-18-2025 End: 04-18-2025 ambulatory ELEANOR DUMONT Not Available Start: 02-22-2025 ambulatory [facility] Start: 02-21-2025 End: 02-21-2025 Clinisync Result Encounter Generic External Data Provider [facility] External Department Unsolicited Start: 02-21-2025 End: 02-21-2025 Clinisync Result Encounter Generic External Data Provider [facility] External Department Unsolicited Start: 02-20-2025 End: [facility] Start: 02-18-2025 End: 02-18-2025 Bamboo flowsdemond Hansen MD Work Phone: [facility] Start: 02-18-2025 End: 02-18-2025 Bamboo flowsheet Renny Hansen MD Work Phone: [facility] Start: 02-18-2025 End: 02-18-2025 Office outpatient visit 15 minutes Renny Hansen MD Work Phone: [facility] Comment on above: RLS (restless legs s yndrome) (Primary Dx) Start: 02-18-2025 End: 02-18-2025 ambulatory RENNY HANSEN Not Available Start: 02-11-2025 End: 02-11-2025 ambulatory Miguel Murphy MD Facility:[facility] Start: 01-22-2025 End: 01-22-2025 ambulatory DMITRIY HENNESSY [facility] Start: 01-17-2025 End: 01-17-2025 ambulatory JAIR FLORIAN [facility] Start: 01-03-2025 ambulatory Thi Rebeccasebas Facility:[facility] Start: 01-01-2025 ambulatory [facility] Start: 12-24-2024 End: 12-24-2024 ambulatory [facility] Start: 12-21-2024 End: 12-21-2024 Clinisync Result [...] 12-17-2024 End: 12-17-2024 ambulatory Miguel Murphy MD Facility:[facility] Start: 11-27-2024 ambulatory [facility] Start: 11-27-2024 ambulatory [facility] Start: 11-13-2024 End: 11-13-2024 ambulatory [facility] Start: 11-09-2024 End: 11-12-2024 Telephone encounter Jr. Sakina Cardenas DO Work Phone: [facility] Comment on above: OP Note Start: 11-07-2024 End: 11-07-2024 Bamboo flowsheet Jr. Sakina Cardenas DO Work Phone: [facility] Start: 11-07-2024 End: 11-07-2024 Bamboo flowsheet Jr. Sakina Cardenas DO Work Phone: [facility] Start: 11-07-2024 End: 11-07-2024 Office outpatient visit 15 minutes Jr. 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, initial encounter (CMS/[facility]); History of reverse total replacement of left shoulder joint Start: 11-07-2024 End: 11-07-2024 ambulatory SAKINA MARIO Not Available Start: 10-29-2024 Registered Recurring Renny batista II [facility] Work [facility]: Start: 10-29-2024 End: 10-29-2024 ambulatory Renny Hansen II Work Phone: [facility] Work Phone: Start: 10-29-2024 End: 10-29-2024 Patient encounter procedure Renny Hansen II Work Phone: [facility] Work Phone: Start: 10-29-2024 End: 10-29-2024 ambulatory Miguel Murphy MD Facility:[facility] Start: 10-24-2024 End: 10-24-2024 Patient encounter procedure Renny Hansen II Work Phone: [facility] [place] Work Phone: Start: 10-24-2024 End: 10-24-2024 ambulatory Renny Hansen II Work Phone: [facility] Work Phone: Start: 10-24-2024 End: 10-24-2024 Office outpatient visit 15 minutes Jr. 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 Sakina Cardenas DO Work Phone: [facility] Start: 10-24-2024 End: 10-24-2024 Bamboo flowsheet Jr. Sakina Cardenas DO Work Phone: [facility] Start: 10-24-2024 End: 10-24-2024 External Result Encounter Jr. Sakina Cardenas DO Work Phone: [facility] External Department Unsolicited Start: 10-17-2024 End: 10-17-2024 Bamboo flowsheet Renny Hansen MD Work Phone: [facility] Start: 10-17-2024 End: 10-17-2024 Bamboo flowsheet Renny Hansen MD Work Phone: [facility] Start: 10-17-2024 End: 10-17-2024 Assay of hemosiderin, quant Renny Hansen MD Work Phone: [facility] Start: 10-17-2024 End: 10-17-2024 Patient encounter procedure Renny Hansen MD Work Phone: [facility] Comment on above: Routine general medi bindu [...] Renny Hansen II Work Phone: [facility] Start: 10-16-2024 End: 10-16-2024 ambulatory Renny Hansen II Work Phone: [facility] Work Phone: Start: 10-09-2024 End: [...] End: 10-02-2024 External Result Encounter Katharina Toledo JAVA DEVELOPER ANALYST Work Phone: [facility] Department Unsolicited Start: 10-02-2024 End: 10-02-2024 External Result Encounter Katharina Toledo JAVA DEVELOPER ANALYST Work Phone: [facility] Department Unsolicited Start: 10-02-2024 Registered Recurring Renny batista II Work Phone: [facility] Work Phone: Start: 09-25-2024 End: 09-25-2024 ambulatory Renny Hansen II Work Phone: [facility] Work Phone: Start: 09-25-2024 End: 09-25-2024 Patient encounter procedure Renny Hansen II Work Phone: [facility] Work Phone: Start: 09-24-2024 End: 09-24-2024 ambulatory [facility] Start: 09-19-2024 End: 09-19-2024 ambulatory LUISANA LEAL Not Available Start: 09-19-2024 End: 09-19-2024 Office outpatient visit 25 minutes Luisana Leal JAVA DEVELOPER ANALYST Work Phone: [facility] Comment on above: Acute cystitis with hematuria (Primary Dx); Burning with urination; Centrilobular emphysema (CMS/HCC); Morbid (severe) obesity due to excess calories (CMS/HCC); Body mass index (BMI) 40.0-44.9, adult (CMS/HCC); Chronic obstructive pulmonary disease, unspecified (CMS/HCC); Pulmonary hypertension, unspecified (CMS/HCC); Need for vaccination Start: 09-18-2024 End: 09-18-2024 Bamboo flowsheet Christopher Jose Roberto DO Work Phone: [employer] Start: 09-18-2024 End: 09-18-2024 Bamboo flowsheet Christopher Jose Roberto DO Work Phone: [employer] [facility] Start: 09-18-2024 End: 09-18-2024 Office outpatient new 45 minutes Christopher Jose Roberto DO Work Phone: [employer] Comment on above: Axillary lymphadenop athy (Primary Dx); Neck pain on left side; Left arm pain Start: 09-18-2024 End: 09-18-2024 ambulatory HAYDERPEARL JOSE ROBERTO Not Available Start: 09-14-2024 End: 09-14-2024 Refill Renny Hansen MD Work Phone: [facility] Comment on above: Persistent atrial fi brillation (HCC) (CMS/HCC) Start: 09-10-2024 End: 09-10-2024 ambulatory Miguel Murphy MD Facility:[facility] Start: 08-24-2024 End: 08-24-2024 Patient encounter procedure Renny Tyrone ARMENTA Work Phone: [facility] [place] Work Phone: Start: 08-24-2024 End: 08-24-2024 ambulatory Pedro Pablo Cruz Facility:[facility] Start: 08-24-2024 End: 08-24-2024 External Result Encounter Katharina Toledo NP Work Phone: [facility] External Department Unsolicited Start: 08-24-2024 End: 08-24-2024 External Result Encounter Katharina Toledo JAVA DEVELOPER ANALYST Work Phone: [facility] Department Unsolicited Start: 08-24-2024 End: 08-24-2024 Patient encounter procedure Renny Hansen II Work Phone: [facility] Work Phone: Start: 08-20-2024 End: 08-20-2024 ambulatory Miguel Murphy MD Facility:[facility] Start: 08-16-2024 End: 08-16-2024 Bamboo flowsheet Renny Hansen MD Work Phone: [facility] Start: 08-16-2024 End: 08-16-2024 Haimboo flowsheet Renny Hansen MD Work Phone: [facility] [...] (CMS/HCC) Start: 07-24-2024 End: 07-24-2024 ambulatory ELEANOR DUMONT Not Available Start: 07-19-2024 End: 07-19-2024 ambulatory DMITRIY DUQUE Not Available Start: 07-18-2024 End: 07-18-2024 ambulatory [facility] Start: 07-16-2024 End: 07-16-2024 Refill Monster Calvillo JAVA DEVELOPER ANALYST Work Phone: [facility] Comment on [...] Not Available Start: 06-19-2024 End: 06-19-2024 ambulatory DMITRIY [facility] Start: 06-18-2024 End: 06-18-2024 Refill Monster Calvillo JAVA DEVELOPER ANALYST Work Phone: [facility] Comment on above: Acute on chronic nisa stolic (congestive) heart failure (CMS/HCC) Start: 05-31-2024 End: 05-31-2024 Bamboo flowsheet Monster Oroscotrick JAVA DEVELOPER ANALYST Work Phone: [facility] Start: 05-31-2024 End: 05-31-2024 Bamboo flowsheet Monster Calvillo JAVA DEVELOPER ANALYST Work Phone: [facility] Start: 05-31-2024 End: 05-31-2024 Office outpatient visit 15 minutes Monster Oroscotrick JAVA DEVELOPER ANALYST Work Phone: [facility] Comment on above: Acute on chronic nisa stolic (congestive) heart failure (CMS/HCC) (Primary Dx) Start: 05-31-2024 End: 05-31-2024 ambulatory MONSTER OROSCOTRICK Not Available Start: 05-22-2024 End: 05-22-2024 ambulatory Jyothi Matt RT(R) Radiology Comment on above: Radiology XR [...] minutes Jr. Sakina Cardenas DO Work Phone: [facility] Comment on above: Acute pain of left s houlder (Primary Dx); History of reverse total replacement of left shoulder joint Start: 05-09-2024 End: 05-09-2024 ambulatory SAKINA MARIO Not Available Start: 05-02-2024 End: 05-02-2024 Patient encounter procedure MD Shaikh Denis Work Phone: [facility] [place] Work Phone: Start: 05-02-2024 End: 05-02-2024 ambulatory MD Shaikh Denis Work Phone: [facility] Work Phone: Start: 04-16-2024 End: 04-16-2024 ambulatory Miguel Murphy MD Facility:[facility] Start: 04-10-2024 End: 04-10-2024 Patient encounter procedure MD Shaikh Denis Work Phone: [facility] [place] Work Phone: Start: 04-10-2024 End: 04-10-2024 ambulatory MD Shaikh Denis Work Phone: [facility] Work Phone: Start: 04-02-2024 End: 04-02-2024 ambulatory Miguel Murphy MD Facility:[facility] Start: 03-29-2024 End: 03-29-2024 Patient encounter procedure MD Shaikh Denis Work Phone: [facility]Pac[facility] Start: 03-29-2024 End: 03-29-2024 ambulatory MD Shaikh Denis Work Phone: [facility] Work Phone: Start: 03-07-2024 End: 03-07-2024 ambulatory Jair PARKL Facility:[id number] Start: 03-02-2024 End: 03-02-2024 ambulatory Jair Bishop NILL Facility: [place] Start: 03-02-2024 End: 03-02-2024 Patient encounter procedure Jair ALEXANDER [facility] [place] Start: 03-01-2024 ambulatory Jair ALEXANDER Facility:[facility] [place] Start: 10-17-2023 Bamboo flowsheet Shaikh Cira CUBA Work Phone: [facility] Start: 10-17-2023 Bamboo flowsheet Shaikh Cira CUBA Work Phone: [facility] Start: 10-11-2023 End: 10-11-2023 ambulatory MD Shaikh Denis Work Phone: [facility] Work Phone: Start: 10-11-2023 End: 10-11-2023 Patient encounter procedure MD Shaikh Denis Work Phone: [facility] [place] Work Phone: Start: 09-08-2023 End: 09-08-2023 ambulatory MD Shaikh Denis Work Phone: [facility] Work Phone: Start: 09-08-2023 End: 09-08-2023 Patient encounter procedure MD Shaikh Denis Work Phone: [facility] Start: 09-06-2023 Patient encounter [...] 10-07-2021 End: 10-07-2021 ambulatory Hong Nevarez Other [employer] Other Start: 10-07-2021 Office outpatient vi sit 15 minutes Hong [employer] [facility] Start: 08-26-2021 End: 08-26-2021 ambulatory Hong Tonydevon Other [employer] Other Start: 08-26-2021 Office outpatient ne w 45 minutes Hong [employer] [facility] Start: 10-11-2020 End: 10-13-2020 Evaluation and management of inpatient ZANE MCGUIRE Facility:[facility] Procedures Date Procedure Procedure Detail Performing Clinician Start: 04-24-2025 Urnls dip stick/tabl et rgnt non-auto w/o micrscp Shannon Robles JAVA DEVELOPER ANALYST Work Phone: Start: 02-21-2025 ALL BASIC METABOLIC PANEL Generic External Data Provider Start: 02-21-2025 ALL C REACTIVE PROTEIN Generic External Data Provider Start: 12-21-2024 ALL BASIC METABOLIC PANEL Generic External Data Provider Start: 10-24-2024 C-reactive protein JrMeena Oavlle Stepanic DO Work Phone: Start: 10-24-2024 DIFF [...] Start: 10-02-2024 ISTAT XRAY CRE Katharina herrera JAVA DEVELOPER ANALYST Work Phone: Start: 10-02-2024 CT of left shoulder with contrast Renny Hansen II Work Phone: Start: 09-19-2024 Urnls dip stick/tabl et rgnt non-auto w/o micrscp Luisana Leal JAVA DEVELOPER ANALYST Work Phone: Start: 08-24-2024 Complete blood count with white cell differential, automated Katharina Aj Tre JAVA DEVELOPER ANALYST Work Phone: Start: 07-24-2024 ALL CBC WITH AUTO DIFF Eleanor Dumont PA Work Phone: Start: 07-24-2024 [employer] Filippo Dumont PA Work Phone: Start: 07-24-2024 Transferrin [Mass/vo [...] Cardiac pacemaker, d evice (physical object) Jair ALEXANDER Comment on above: Dr. Martinez Start: 10-13-2020 INSERT PACE. DUAL CH AM IN CHEST SUBCU/FASCIA, OPEN DMITRIY HENNESSY Start: 10-13-2020 INSERTION OF PACEMAK ER LEAD INTO R VENTRICLE, PERC APPROACH DMITRIY HENNESSY Start: 10-13-2020 INSERTION OF PACEMAK ER LEAD INTO RIGHT ATRIUM, PERC APPROACH DMITRIY HENNESSY Start: 09-12-2017 Colonoscopy Shaikh Dominique eid MD Work Phone: Start: 09-12-2003 History of right tot al knee replacement Jair PARKL Start: 09-12-2001 History of left tota l knee replacement Jair PARKL Appendectomy Jair PARKL Arthroscopy of knee Jair PARKL Comment on above: 06/2012 Arthroscopy of shoulder Brice roxanne PARKL Comment on above: left shoulder tear r epaired 08/25 Cardiac catheter (ph ysical object) Jair PARKL Comment on above: 12/21/ mild CAD Colonoscopy Jair PARKL Comment on above: 2012 repeat 10 years Ligation of fallopian tube M armando XAVIERL Repair of musculoten dinous cuff of shoulder Jair PARKL Comment on above: right Total abdominal hyst erectomy with bilateral salpingo-oophorectomy Jair [employer] Plan of Treatment Date Care Activity Detail Author Start: 09-12-2027 Screening for malign ant neoplasm of colon [facility] Start: 10-17-2025 Medicare Annual Well ness (AWV) Medicare Annual Wellness (AWV) [facility] Start: 05-16-2025 End: 05-16-2025 Patient encounter procedure [facility] Start: 05-13-2025 Influenza vaccination Influenza Vacc ine (#1) [facility] Start: 04-24-2025 End: 04-24-2026 URINARY TRACT INFECTION (HTRX) URINARY TRACT INFECTION (HTRX) Lab Routine Hematuria, unspecified type Expected: 04/24/2025 (Approximate), Expires: 04/24/2026 [facility] Work Phone: Comment on above: Expected: 04/24/2025 (Approximate), Expires: 04/24/2026 Start: 04-18-2025 End: 04-18-2025 Patient encounter procedure 04/18/2025 11:00 AM EDT Office Visit [facility] [place] [facility] [address] [place] [id number] Eleanor Dumont PA [address] [place], [place] [address] Arrived [facility] [place] [facility] Comment on above: Arrived Start: 02-18-2025 End: 02-18-2025 Patient encounter procedure [facility] Comment on above: Arrived Start: 01-14-2025 End: 12-15-2025 DBT Breast - [...] EST Office Visit [facility] [address] [facility] [address] [place] [id number] Dmitriy Duque, DO [address] [facility] [address] [place] [address] [facility] Start: 10-24-2024 End: 10-24-2024 Patient encounter procedure 10/24/2024 2:15 PM EST Office Visit [facility] [address] [place] [address] Jr. Sakina Cardenas, DO [address] [facility] [address] [place] [address] Injury of left shoulder and upper arm, sequela; Left shoulder pain, unspecified chronicity [facility] Comment on above: Injury of left shoul kathie and upper arm, sequela; Left shoulder pain, unspecified chronicity Start: 10-17-2024 End: 10-17-2024 Patient encounter procedure [facility] Comment on above: Arrived Start: 10-04-2024 End: 10-04-2024 Patient encounter procedure 10/04/2024 3:45 PM EST Consult [facility] [address] [facility] [address] [place] [phone] Dmitriy Duque, DO [address] [facility] [address] [place] [address] [facility] Start: 09-25-2024 Patient referral [facility] Work Phone: Start: 09-19-2024 End: 09-19-2024 Patient encounter procedure 09/19/2024 3:00 PM EST Office Visit [facility] [address] [facility] [address] [place] [phone] Luisana Leal, JAVA DEVELOPER ANALYST [address] [place] [address] [facility] Start: 09-19-2024 End: 09-19-2025 URINARY TRACT INFECTION (HTRX) URINARY TRACT INFECTION (HTRX) Lab Routine Burning with urination Expected: 09/19/2024 (Approximate), Expires: 09/19/2025 [facility] Work Phone: Comment on above: Expected: 09/19/2024 (Approximate), Expires: 09/19/2025 Start: 09-18-2024 End: 09-18-2024 Patient encounter procedure 09/18/2024 10:15 AM EST Office Visit [facility] [address] [place] [phone] Jose RobertoSalome thurman [address] [place], [place] [id number] Neck pain on left side [facility] [address] Comment on above: Neck pain on left si de Start: 09-14-2024 End: 09-14-2024 Patient encounter procedure 09/14/2024 10:00 AM EST Office Visit [facility] [address] [facility] [address] [place] [phone] Renny Hansen MD [address] [facility] [address] [place] [address] [facility] Start: 09-10-2024 [facility] Start: 09-10-2024 [facility] Start: 09-06-2024 Medicare Annual Well ness (AWV) Medicare Annual Wellness (AWV) [facility] Start: 09-03-2024 [facility] Start: 08-31-2024 [facility] Start: 08-31-2024 [facility] Start: 08-23-2024 End: 08-23-2024 Patient encounter procedure 08/23/2024 11:45 AM EST Office Visit [facility] [address] [place] [phone] Renny Hansen MD [address] [place] [address] [facility] Start: 08-16-2024 End: 08-16-2024 Patient encounter procedure 08/16/2024 10:30 AM EST Office Visit [facility] [address] [facility] [address] [place] [phone] Renny Hansen MD [address] [facility] [address] [place] [address] [facility] Start: 08-02-2024 End: 08-02-2025 [...] [facility] [address] [facility] [address] [place] [phone] [facility] Start: 07-05-2024 End: 07-05-2025 EMG AND NERVE CONDUCTION STUDY EMG AND NERVE CONDUCTION STUDY Neurology Routine Neck pain on left side Radicular pain in left arm Expected: 07/05/2024 (Approximate), Expires: 07/05/2025 [facility] Comment on above: Expected: 07/05/2024 (Approximate), [...] procedure 05/31/2024 1:30 PM EDT Office Visit [facility] [address] [place] [address] Monster Calvillo NP [address] [place] [address] Arrived [facility] Comment on above: Arrived Start: 05-22-2024 End: 08-21-2024 C reactive protein [Mass/volume] in Serum or Plasma C-REACTIVE PROTEIN Lab Routine 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) Expected: 05/22/2024, Expires: 08/21/2024 [facility] Comment on above: Expected: 05/22/2024 , Expires: 08/21/2024 Start: 05-22-2024 End: 08-21-2024 CBC W Auto Differential panel - Blood COMPLETE BLOOD COUNT AND DIFFERENTIAL Lab Routine 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) Expected: 05/22/2024, Expires: 08/21/2024 [facility] Comment on above: Expected: 05/22/2024 , Expires: 08/21/2024 Start: 05-22-2024 End: 08-21-2024 Erythrocyte sedimentation rate SEDIMENTATION RATE, WESTERGREN Lab Routine 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) Expected: 05/22/2024, Expires: 08/21/2024 [facility] Comment on above: Expected: 05/22/2024 , Expires: 08/21/2024 Start: 05-22-2024 End: 05-22-2024 Patient encounter procedure 05/22/2024 2:00 PM EDT Office Visit [facility] [address] [place] [address] Monster Calvillo NP [address] [place] [phone] [facility] Start: 05-13-2024 Covid-19 Vaccine ( season) Covid-19 Vaccine () [facility] Start: 05-13-2024 Influenza vaccination Influenza Vacc ine (#1) [facility] Start: 05-09-2024 End: 05-09-2024 Patient encounter procedure 05/09/2024 10:00 AM EDT Office Visit [facility] [address] [place] [address] Jr. Sakina Cardenas, 112 [facility] 150 [place] [address] [facility] Start: 11-07-2023 End: 11-07-2023 Patient encounter procedure 11/07/2023 2:30 PM EST Office Visit [facility] [address] [place] [address] Shaikh Denis MD [address] [place] [address] [facility] Start: 10-17-2023 End: 10-17-2023 Patient encounter procedure 10/17/2023 10:15 AM EST Office Visit [facility] [address] [place] [address] Shaikh Denis MD [address] [place] [address] Arrived [facility] Comment on above: Arrived Start: 09-12-2023 Advance Directive Discussion Advance Directive Discussion [facility] Start: 11-30-2012 Screening for osteoporosis Bone Dens ity Screening [facility] Start: 11-30-1997 Shingrix Vaccine (1 of 2) Reyes grix Vaccine (1 of 2) [facility] Start: 11-30-1992 Diabetes Screening Diabetes Screenin g [facility] Start: 11-30-1966 Urine microalbumin profile DTa P,Tdap,Td Vaccine (1 - Tdap) [facility] Start: 11-30-1965 Anxiety Screening Anxiety Screening [facility] Start: 11-30-1965 Depression Screening Depression Scre ening [facility] Start: 11-30-1965 Hepatitis C screening Hepatitis C Sc deirdre [facility] Start: 1945 Screening for malign ant neoplasm of colon [facility] CBC W Auto Different ial panel - Blood CBC auto differential Lab Routine 10/02/2024 11:54 AM EST [facility] [employer] Work Phone: CBC W Auto Different ial panel - Blood [facility] Work Phone: Comment on above: Ordered: 10/24/2024 Comprehensive metabo lic 2000 panel - Serum or Plasma [facility] Comprehensive metabo lic 2000 panel - Serum or Plasma [facility] CT Shoulder - left W contrast IV [facility] End: 06-21-2025 CT Shoulder - left [...] TIBC Lab Routine 08/24/2024 2:30 PM EST [employer] Work Phone: [employer] Iron bindin g capacity panel - Serum or Plasma Iron and TIBC Lab STAT 10/02/2024 11:54 AM [place] [facility] Work Phone: Patient referral [facility] Work Phone: [facility] Immunizations Immunization Date Immunization Notes Care Provider Alexandra [facility] 09-19-2024 Influenza, High-dose Seasonal, Quadrivalent, Preservative Free Luisana Leal JAVA DEVELOPER ANALYST Work Phone: [facility] 09-19-2024 influenza virus vacc ine, unspecified formulation Eleanor Dumont PA Work Phone: [facility] 08-25-2023 influenza virus vacc ine, unspecified formulation Jair ALEXANDER [facility] 08-25-2023 Influenza, Seasonal, Quadrivalent, Adjuvanted Shaikh Cira CUBA Work Phone: [facility] 08-25-2023 RSV, recombinant, protein subunit RSVpreF, adjuvant reconstitu, 120mcg/0.5mL, PF (Arexvy) Shaikh Cira CUBA Work Phone: [facility] 07-08-2022 influenza virus vacc ine, unspecified formulation Jair ALEXANDER [facility] 07-08-2022 Influenza, Seasonal, Quadrivalent, Adjuvanted Shaikh Cira CUBA Work Phone: [facility] 08-20-2021 influenza virus vacc ine, unspecified formulation Jair ALEXANDER [facility] 08-20-2021 Influenza, Seasonal, Quadrivalent, Adjuvanted Shaikh Cira CUBA Work Phone: [facility] 08-20-2021 pneumococcal polysaccharide vaccine, 23 valent Jair ALEXANDER [facility] 11-18-2020 SARS-CoV-2 (COVID-19 ) mRNA-1273 vaccine Jair ALEXANDER [facility] 10-20-2020 SARS-CoV-2 (COVID-19 ) mRNA-2897 vaccine Jair ALEXANDER [facility] 08-04-2020 influenza virus vacc ine, unspecified formulation Jair ALEXANDER [facility] 08-04-2020 Influenza, Seasonal, Quadrivalent, Adjuvanted Shaikh Cira CUBA Work Phone: [facility] 08-04-2020 pneumococcal conjuga te vaccine, 13 valent Jair ALEXANDER [facility] 08-06-2019 influenza virus vacc ine, unspecified formulation Jair PARKMariah [facility] 08-06-2019 influenza, high dose seasonal, preservative-free Shaikh Cira CUBA Work Phone: [facility] 07-05-2017 influenza virus vacc ine, unspecified formulation Jair PARKMariah [facility] 07-05-2017 pneumococcal conjuga te vaccine, 13 valent Jair ALEXANDER [facility] 07-05-2017 Seasonal trivalent influenza vaccine, adjuvanted, preservative free Shaikh Cira CUBA Work Phone: [facility] 06-29-2016 influenza virus vacc ine, unspecified formulation Jair ALEXANDER [facility] 06-29-2016 Seasonal trivalent influenza vaccine, adjuvanted, preservative free Shaikh Cira CUBA Work Phone: [facility] 06-25-2015 influenza virus vacc ine, unspecified formulation Jair ALEXANDER [facility] 06-25-2015 influenza, injectabl e, quadrivalent, contains preservative Shaikh Cira CUBA Work Phone: [facility] 06-12-2015 influenza virus vacc ine, unspecified formulation Jair ALEXANDER [facility] 06-12-2015 seasonal influenza, intradermal, preservative free Shaikh Cira CUBA Work Phone: [facility] 07-12-2014 influenza virus vacc ine, unspecified formulation Jair ALEXANDER [facility] 07-12-2014 influenza, injectabl e, quadrivalent, contains preservative Shaikh Cira CUBA Work Phone: [facility] 08-07-2013 influenza virus vacc ine, unspecified formulation Jair ALEXANDER [facility] 08-07-2013 influenza, seasonal, injectable Shaikh Cira CUBA Work Phone: [facility] Payers Date Payer Category Payer Unknown [id number] 2024 Medicare (Managed Care) [employer]IC[employer] [id number] 2024 Unknown [id number] 2024 Unknown 2024 Self-pay [id number] 2023 Medicaid [employer] MEDICARE A DVANTAGE [id number] 2023 Private Health Insurance [facility] [id number] 2023 Private Health Insurance 2023 Managed Care HMO (unspecified) OSEI FRANZ [id number] 2023-Present [address] [place] [address] HMO [id number] 2007 Medicare [id number]. [id number] 1959 Medicare [id number] 1959 Private Health Insurance [facility] [id number] 1947 Unknown [id number] 2.16.840.1.505021.3.579.2. 647 1947 Unknown [id number] 2.16.840.1.671578.3.579.2. 593 1947 Unknown [id number] 2.16.840.1.860901.3.579.2. 593 1947 Unknown [id number] 2.16.840.1.682475.3.579.2. 593 1947 Unknown [id number] 2.16.840.1.747146.3.579.2. 593 1947 Unknown [id number] 2.16.840.1.110481.3.579.2. 593 1947 Unknown [id number] 2.16.840.1.185522.3.579.2. 593 1947 Unknown [id number] 2.16.840.1.691047.3.579.2. 593 1947 Unknown [id number] 2.16.840.1.344667.3.579.2. 593 1947 Unknown [id number] 2.16.840.1.046493.3.579.2. 593 1947 Unknown [id number] 2.16.840.1.360548.3.579.2. 593 1947 Unknown [id number] 2.16.840.1.536012.3.579.2. 593 1947 Unknown [id number] 2.16.840.1.537012.3.579.2. 593 1947 Unknown [id number] 2.16.840.1.380133.3.579.2. 593 1947 Unknown [id number] 2.16.840.1.023617.3.579.2. 593 1947 Unknown [id number] 2.16.840.1.595068.3.579.2. 593 1947 Unknown [id number] 2.16.840.1.615343.3.579.2. 593 1947 Unknown [id number] 2.16.840.1.031988.3.579.2. 593 1947 Unknown [id number] 2.16.840.1.110982.3.579.2. 593 1947 Unknown [id number] 2.16.840.1.094131.3.579.2. 593 1947 Unknown [id number] 2.16.840.1.844916.3.579.2. 593 1947 Unknown [id number] 2.16.840.1.319179.3.579.2. 593 1947 Unknown [id number] 2.16.840.1.297348.3.579.2. 593 1947 Unknown [id number] 2.16.840.1.569981.3.579.2. 593 1947 Unknown [id number] 2.16.840.1.955340.3.579.2. 593 1947 Unknown [id number] 2.16.840.1.704222.3.579.2. 593 1947 Unknown [id number] 2.16.840.1.476579.3.579.2. 593 1947 Unknown [id number] 2.16.840.1.236466.3.579.2. 727 1947 Unknown [id number] 2.16.840.1.568748.3.579.2. 727 1947 Unknown [id number] 2.16.840.1.405999.3.579.2. 196 1947 Unknown [id number] 2.16.840.1.828061.3.579.2. 196 1947 Unknown [id number] 2.16.840.1.043750.3.579.2. 196 1947 Unknown [id number] 2.16.840.1.085785.3.579.2. 196 1947 Unknown [id number] 2.16.840.1.558992.3.579.2. 196 1947 Unknown [id number] 2.16.840.1.114113.3.579.2. 196 1947 Unknown [id number] 2.16.840.1.675190.3.579.2. 196 1947 Unknown [id number] 2.16.840.1.388930.3.579.2. 1259 1947 Unknown [id number] 2.16.840.1.642664.3.579.2. 1259 1947 Unknown [id number] 2.16.840.1.386146.3.579.2. 1258 1947 Unknown [id number] 2.16.840.1.197387.3.579.2. 125 1947 Unknown [id number] 2.16.840.1.577816.3.579.2. 1258 1947 Unknown [id number] 2.16.840.1.811497.3.579.2. 125 1947 Unknown [id number] 2.16840.1.296236.3.579.2. 1258 1947 Unknown [id number] 2.16.840.1.960672.3.579.2. 1258 1947 Unknown [id number] 2.16840.1.347970.3.579.2. 1258 1947 Unknown [id number] 2.16840.1.268510.3.579.2. 1258 1947 Unknown [id number] 2.16840.1.516215.3.579.2. 1258 1947 Unknown [id number] 2.16.840.1.602972.3.579.2. 1258 1947 Unknown [id number] 2.16840.1.392050.3.579.2. 125 1947 Unknown [id number] 2.16840.1.767457.3.579.2. 125 1947 Unknown [id number] 2.16840.1.045209.3.579.2. 1258 1947 Unknown [id number] 2.16840.1.080420.3.579.2. 1259 Medicare Medicare Outpatient [id number] [id number] Unknown [place] [id number] Unknown [id number] 2.16.840.1.951042.3.579.2. 531 Unknown [id number] 2.16.840.1.021829.3.579.2. 531 Unknown [id number] 2.16.840.1.534184.3.579.2. 531 Unknown [id number] 2.16.840.1.084256.3.579.2. 531 Unknown [id number] 2.16.840.1.466418.3.579.2. 531 Unknown [id number] 2.16.840.1.660358.3.579.2. 531 Unknown [id number] 2.16.840.1.732919.3.579.2. 531 Social History Date Type Detail Facility Start: 08-30-2023 End: 11-12-2024 Sex Assigned At [facility] Start: 1945 Sex Assigned At Female [facility] Start: 08-18-2023 End: 10-17-2024 Tobacco smoking status [facility] Ex-smoker [facility] Start: 09-12-1967 History of [...] Healthcare How often do you att end spiritism or anabaptist services? Patient refused [facility] Do you belong to any clubs or organizations such as spiritism groups, unions, fraternal [...] money to buy more. DK or Refused [facility] Start: 08-18-2023 Alcohol Comment (Audit-C) : Negative [facility] Start: 1945 Sex Assigned At Not on file [facility] Start: 04-27-2013 End: 05-22-2024 Tobacco smoking status NHIS Never smoked tobacco (finding) [facility] Start: 05-22-2024 Tobacco use and exposure Smokeless tobacco non-user [facility] Start: 05-22-2024 End: 04-24-2025 Alcoholic beverage intake Current drinker of alcohol (finding) [facility] History of tobacco use Passive smoker [facility] Start: 11-07-2023 Alcohol Comment OCCASSIONAL [facility] Start: 09-25-2024 End: 10-29-2024 Sex Female (finding) [facility] Are you now , , , , never or living with a partner? Living with partner [facility] Do you feel stress - tense, restless, nervous, or anxious, or unable to sleep at night because your mind is troubled all the time - these days [OSQ] To some extent [facility] (I/We) worried wheth er (my/our) food would run out before (I/we) got money to buy more. Never true [facility] How often do you nee d to have someone help you when you read instructions, pamphlets, or other written material from your doctor or pharmacy [SILS] Never [facility] Work Phone: Goals Date Patient Goal Desired Activity /State Functional Status Date Assessment Result Facility 04-24-2025 Patient Health Quest ionnaire 2 item (PHQ-2) [Reported] [facility] 04-18-2025 Patient Health Quest ionnaire 2 item (PHQ-2) [Reported] [facility] 02-18-2025 Patient Health Quest ionnaire 2 item (PHQ-2) [Reported] [facility] 03-02-2024 Functional Status N/A [facility] Clinical Notes 08-26-2021 to 04-24-2025 Shannon Robles NP - 04/24/2025 9:30 AM DANIELLE Guerra - 04/18/2025 11:00 AM Akhil Hansen MD - 02/18/2025 11:30 AM Akhil Hansen MD - 12/17/2024 11:00 AM EDTPatient Instructions Note Date & Type Note Facility 04-24-2025 History of Present illness Narrative Images from [...] 4 weeks ago. The problem has been gradually worsening since onset. Associated symptoms include hematuria and [...] by mouth every 12 (twelve) hours HYDROcodone-acetaminophen (Alcove) 5-325 MG tablet Take 1 tablet by [...] water intake, get plenty of rest. Advised patient that the urine will be sent out for culture. May need to change the antibiotic based on the culture results. Cranberry juice ok. Avoid bath tubs and [...] follow-ups on file. documented in this encounter [facility] 04-18-2025 History of Present illness Narrative Subjective Patient ID: Breann Starks is a 79 y.o. female who presents for COPD. Breann is present today for follow up COPD. She has a nebulizer at home but is not working properly and it is over 20 years old. She would like it sent to [facility] in [place] [facility] She uses it as needed. She does [...] by mouth every 12 (twelve) hours HYDROcodone-acetaminophen (Alcove) 5-325 MG tablet Take 1 tablet by [...] lb 12.8 oz SpO2 96% BMI 33.34 kg/m Smoking Status Former BSA 2.23 m Review of Systems Constitutional: Negative for chills, [...] order to receive a new nebulizer and supplies as hers is broken. Will fax order for nebulizer to [facility], . It is medically necessary for patient to have a nebulizer as she cannot tolerate inhalers, has tried and failed several. Has current diagnosis that supports need for a nebulizer, COPD. Pt has significant SOB with LEA, and worsening productive cough if she unable to use her nebulizer. She is unable to even walk from one room to the next in her home when her symptoms flare up. Symptoms are relieved with use of the nebulizer with Duo-Neb solution. 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 Falls can cause potentially fatal injuries. Refill provided on the nebulizer solution also at today's visit. Follow up for Appointment As Scheduled. documented in this encounter [facility] 02-20-2025 Note Subjective Patient ID: Breann Starks is a 79 y.o. female. Mrs. 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 She is currently taking penicillin 500 mg 4 times daily. She is able to take this without difficulty. She has a past medical history significant for sick sinus syndrome with pacemaker in place. She is having no new complaints. No fever, no chills, no night sweats, no new shoulder pain, no drainage from the shoulder, no significant change in the range of movement; she has no rash. She is here today with her . Briefly, she underwent reverse left shoulder replacement in 2021. She says that the postoperative course was uneventful until approximately February 2024 when she developed increasing left shoulder pain and decreased range of movement. Of note she says that her anterior arm near her shoulder replacement has always had some erythema. In November 2024 she underwent left shoulder joint aspiration which yielded Streptococcus sanguinous. She was started on oral penicillin 500 mg 4 times daily. After that, she says that her left shoulder pain has diminished and her range of movement is slowly improved. Review of Systems Constitutional: Negative for [...] rhythm. Pulmonary: Effort: Pulmonary effort is normal. Breath sounds: Normal breath sounds. Abdominal: General: Abdomen is flat. Bowel sounds are normal. Palpations: Abdomen is soft. Tenderness: There is no right CVA tenderness or left CVA tenderness. Musculoskeletal: Arms: Right lower leg: No edema. Left lower leg: No edema. Comments: Left anterior shoulder: slight rubor, no calor, no dolor, no tumor, no drainage. Lymphadenopathy: Cervical: No cervical adenopathy. Skin: Coloration: Skin is not jaundiced. Findings: No rash. Neurological: General: No focal deficit present. Mental Status: She is alert and oriented to person, place, and time. Psychiatric: Mood and Affect: Mood normal. Laboratory: No results found for: AST , ALT , ALBUMIN , PROT Lab Results Component Value Date CRP 6.8 (H) 01/17/2025 Lab Results Component Value Date HGB 9.8 (L) 01/17/2025 HCT 33.1 (L) 01/17/2025 WBC 7.39 01/17/2025 PLT 338 01/17/2025 Lab Results Component Value Date NA 135 (L) 01/17/2025 K 4.1 01/17/2025 CL 103 01/17/2025 GLUCOSE 92 01/17/2025 BUN 17 01/17/2025 CREATININE 0.64 01/17/2025 1. 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 She has no signs or symptoms of systemic infection and while she has been on oral penicillin for approximately 10 weeks, she has said that her shoulder pain has diminished in her range of motion has improved. She has a past medical history significant of her pacemaker and she has no signs or symptoms of endocarditis or endovascular infection. She does not want to have any surgery if she does not need it. Overall, she has slowly improved with this oral regimen. Her C-reactive protein has improved. She is tolerating oral penicillin. Plan: Decrease penicillin to 500 mg 3 times daily for chronic lifelong suppression Repeat labs today Follow-up in 3 months [facility] 02-18-2025 History of Present illness Narrative Images from [...] by mouth every 12 (twelve) hours HYDROcodone-acetaminophen (Alcove) 5-325 MG tablet Take 1 tablet by [...] Wt 223 lb SpO2 96% BMI 45.04 kg/m Smoking Status Former BSA 2.05 m Review of Systems Objective Physical Exam [...] months (around 05/21/2025). documented in this encounter [facility] 01-17-2025 Note Subjective Patient ID: Breann Starks [...] Strep sanguis Perfect is the enemy of shawn montenegro 1. Pain in joint of left shoulder [...] - C-reactive protein; (more content not included)... [facility] 01-01-2025 Note Orthopaedic Surgery Subjective Follow-up and [...] be an additional personal documentation from me. [facility] 12-24-2024 Note [place] Cardiology - [facility] Subjective Breann Starks is a 79 y.o. year old female patient being seen for Coronary Artery Disease, Hypertension, Congestive Heart Failure, Hyperlipidemia, and 3 month follow up Patient Active Problem List Diagnosis Disorder of bursae of shoulder region Chronic obstructive lung disease (CMS/HCC) Atherosclerosis of navajo coronary artery of navajo heart without angina pectoris Diaphragmatic hernia Edema [...] date: 1956 Quit date: 1999 Years since quittin.3 Smokeless [...] furosemide (Lasix) 4 (more content not included)... [facility] 12-17-2024 History of Present illness Narrative Images [...] by mouth every 12 (twelve) hours HYDROcodone-acetaminophen (Alcove) 5-325 MG tablet Take 1 tablet by [...] shoulder joint (CMS/HCC) - Seeing Dr Holt ([facility]). On 1 month ATB course. Abnormal mammogram - Results discussed. She has left axillary LAD from above. Enlarged lymph nodes in armpit - This office visit was spent in consultation regarding the patient's current medical problems, differential diagnoses, testing/imaging results, and treatment options. Greater than 25 minutes was spent in ynym-xn-lsle consultation and coordination of care. No follow-ups on file. documented in this encounter [facility] 11-27-2024 Note Orthopedic Surgery Subjective Chief complaint: [...] her about suppression versus doing something definitive. [facility] 11-13-2024 Note Patient ID: Breann Starks is [...] to verify the correct patient, procedure, equipment, ict support and test engineers and site/side marked as required. [facility] 11-13-2024 Note Orthopedic Surgery Subjective Pain of [...] Diagnosis Date Abnormal ECG Arrhythmia Atrial fibrillation ([facility]) Coronary artery disease Hypertension Objective General: Body mass index is 44.43 kg/m???. No acute distress, comfortable Left UE/Hand: Inspection- swelling and erythema overlying the left shoulder and upper arm Tender to palpation surrounding shoulder, otherwise non-tender ROM: Limited shoulder range of motion patient with flexion to 40 degrees, abduction to 20 full painless motion to all digits and the wrist Strength: gun synchronizer 5/5, thumb 5/5, interossei 5/5. wrist extension/flexion [...] be an additional personal documentation from me. [facility] 11-10-2024 Telephone encounter Note I think it is the op note left shoulder on 01/07/2022 ( Dr. Amin- [facility]) thanks [facility] Work Phone: 11-10-2024 Miscellaneous Notes I think it is the op note left shoulder on 01/07/2022 ( Dr. Amin- [facility]) thanks Patient called in about seeing and the referral to . Patient needs us to send the op report for LT shoulder to because 's office cannot.. 's fax number is [phone]. Is this ok? documented in this encounter [facility] 11-09-2024 Telephone encounter Note Patient called in about seeing and the referral to . Patient needs us to send the op report for LT shoulder to because 's office cannot.. 's fax number is [phone]. Is this ok? [facility] 11-07-2024 History of Present illness Narrative Images from the original note were not included. HISTORY OF PRESENT ILLNESS: EST PT Breann Starks is an 78 y.o. @ female. (EST PT) - RECHECK (L) SHOULDER ; S/P LABS (CBC W/ DIFF, CRP, SED RATE) S/P (L) REVERSE TSR 12/29/21 - DR AMIN XRAYS, (L) SHOULDER & C-SPINE 04/16/24 IN [facility] ATTEMPTED MRI @ [facility] [place] UNABLE TO OBTAIN IMAGES D/T PACEMAKER PLACEMENT BONE SCAN 05/02/24 @ [facility] LABS 10/24/24 @ [facility] (CBC W/DIFF, CRP, SED RATE) LABS 05/09/24 @ [facility] (CBC / SED RATE / CRP) NO MDP / PREDNISONE NO RECENT PT PAIN MGMT @TB (LBP) (NECK PAIN 08/2024) NO CHANGE SINCE [...] HER (L) ARM TO USE A BACK SOLIDWORKS MECHANICAL DESIGNER ON HER BACK ALLERGIES: Allergies Allergen Reactions [...] (TAMBOCOR) 100 mg, Every 12 hours HYDROcodone-acetaminophen (Alcove) 5-325 MG tablet 1 tablet, 3 times [...] Elbow: none Palpation additional comments: Neg [employer] Supervisor strength symmetric. Wrist flex/ ext. Symmetric 5/5 [...] We have recommended a second opinion at [facility] and set her up with a referral [...] requiring urgent evaluation. documented in this encounter [facility] 10-24-2024 History of Present illness Narrative Images from the original note were not included. HISTORY OF PRESENT ILLNESS: EST PT Breann Starks is an 78 y.o. @ female. (EST PT) (DR. HANSEN REFERRAL) - RECHECK (L) SHOULDER S/P (L) REVERSE TSR 12/29/21 - DR AMIN XRAYS, (L) SHOULDER & C-SPINE 04/16/24 IN [facility] ATTEMPTED MRI @ [facility] - UNABLE TO OBTAIN IMAGES D/T PACEMAKER PLACEMENT BONE SCAN 05/02/24 @ [facility] LABS 05/09/24 @ [facility] (CBC / SED RATE / CRP) NO MDP / PREDNISONE NO RECENT PT PAIN MGMT @TB (LBP) (NECK PAIN 08/2024) CONTINUES TO HAVE [...] HER (L) ARM TO USE A BACK SOLIDWORKS MECHANICAL DESIGNER ON HER BACK ALLERGIES: Allergies Allergen Reactions [...] (TAMBOCOR) 100 mg, Every 12 hours HYDROcodone-acetaminophen (Alcove) 5-325 MG tablet 1 tablet, 3 times [...] Elbow: none Palpation additional comments: Neg [employer] Supervisor strength symmetric. Wrist flex/ ext. Symmetric 5/5 [...] due to internal joint prosthesis, initial encounter ([facility]) T84.50XA CBC and differential C-reactive [...] requiring urgent evaluation. documented in this encounter [facility] 10-17-2024 History of Present illness Narrative Images [...] by mouth every 12 (twelve) hours HYDROcodone-acetaminophen (Alcove) 5-325 MG tablet Take 1 tablet by [...] Do you have a medical power of employment attorney?: No Objective : BP 138/76 Pulse [...] a living will and durable power of employment attorney for healthcare. We discussed telling kitchen [...] 17, 2024 documented in this encounter [facility] 10-16-2024 Radiology Diagnostic study note [facility] [place] [address] [place] [address] Ultrasound Report Signed Patient: Breann Starks MR#: [id number] : 1945 Acct:[id number] Age/Sex: 78 / F ADM Date: 5 Loc: [facility] Room: Type: [facility] Attending Dr: Dmitriy Duque DO Ordering Provider: Dmitriy Duque DO Date of Service: 10/16/24 US/US axilla: R92.8 ([id number]) MM/MM diagnostic mammo BI w/CAD: ENLARGED LT [...] Benton Jr., D.O.10/16/2024 2:20 PM Dictation Location: [facility] Tech: Ghazal Wilson; Kadi Elisabeth Transcribed By: STAR 10/16/24 1420 Dictated By: Francisco J Benton Jr, DO 10/16/24 1343 Signed By: 10/16/[address] [facility] 10-04-2024 History of Present illness Narrative Images from the original note were not included. Breann Starks 1945 Breann Starks is a 78 y.o. female presents with chief complaint of Consult (Lt axillary lymphadenopathy) HPI: HPI patient was vigorously scratching her back with a back graphics edit technician on February 15 and the next day [...] furosemide (LASIX) 40 mg, Oral, Daily HYDROcodone-acetaminophen (Alcove) 5-325 MG tablet 1 tablet, 3 times [...] Medical History: Diagnosis Date Anemia Atrial fibrillation ([facility]/HCC) Centrilobular emphysema ([facility]) COPD (chronic obstructive pulmonary disease) ([facility]) COPD exacerbation ([facility]) 10/17/2023 Coronary artery disease ([facility]) Diastolic dysfunction Essential hypertension ([facility]) History of tobacco abuse Nonalcoholic steatohepatitis ([facility]) Obstructive sleep apnea Osteoarthritis Paroxysmal atrial fibrillation ([facility]/HCC) Peptic ulcer disease Secondary pulmonary arterial hypertension ([facility]/HCC) Sick sinus syndrome ([facility]) Spinal stenosis, lumbar region with neurogenic claudication SVT (supraventricular tachycardia) ([facility]) URTI (acute upper respiratory infection) [...] Former Physical Exam Exam conducted with a chart reader present. Constitutional: Appearance: Normal appearance. HENT: Head: [...] on that documented in this encounter [facility] 09-24-2024 Note [place] Cardiology - [facility] Subjective Breann Starks is a 78 [...] Chronic obstructive lung disease (CMS/HCC) Atherosclerosis of navajo coronary artery of navajo heart without angina pectoris Diaphragmatic hernia Edema [...] Positive fecal occult blood test Sigmoid diverticulosis [facility] 09/24/2024 Patient states that she has been [...] at bedtime. (Patient (more content not included)... [facility] 09-19-2024 History of Present illness [...] Reported on 09/18/2024) 90 tablet 0 HYDROcodone-acetaminophen (Alcove) 5-325 MG tablet Take 1 tablet by [...] (chronic obstructive pulmonary disease) (CMS/HCC) COPD exacerbation ([facility]/HCC) 10/17/2023 Coronary artery disease ([facility]/HCC) Diastolic dysfunction Essential hypertension ([facility]/HCC) History of tobacco abuse Nonalcoholic steatohepatitis ([facility]) Obstructive sleep apnea Osteoarthritis Paroxysmal atrial fibrillation ([facility]/HCC) Peptic ulcer disease Secondary pulmonary arterial hypertension (CMS/HCC) Sick sinus syndrome ([facility]/HCC) Spinal stenosis, lumbar region with neurogenic claudication SVT (supraventricular tachycardia) ([facility]/HCC) URTI (acute upper respiratory infection) Vertigo Vitamin [...] file. = documented in this encounter [facility] 09-19-2024 Instructions Luisana Leal NP - 09/19/2024 3:00 PM EST Macrobid ordered. Urine sent for culture. documented in this encounter [facility] 09-18-2024 History of Present illness Narrative Images from the original note were not included. Chief Complaint: neck pain and paresthesia Subjective Breann Stakrs, 78 y.o., female Patient presents today for [...] Date Anemia Atrial fibrillation (CMS/HCC) Centrilobular emphysema ([facility]/HCC) COPD (chronic obstructive pulmonary disease) ([facility]/HCC) COPD exacerbation ([facility]/HCC) 10/17/2023 Coronary artery disease ([facility]/HCC) Diastolic dysfunction Essential hypertension ([facility]/HCC) History of tobacco abuse Nonalcoholic steatohepatitis ([facility]) Obstructive sleep apnea Osteoarthritis Paroxysmal atrial fibrillation ([facility]/HCC) Peptic ulcer disease Secondary pulmonary arterial hypertension [...] , wrist extensors , wrist flexor , gun synchronizer strength 5/5. Left upper extremity strength is [...] reflex 2+ . Neal's sign negative. Coordination: Tsudxk-ol-kewl testing and rapid alternating movements are normal [...] return instructions documented in this encounter [facility] 08-24-2024 Evaluation note Diagnosis Onset Date Resolution Iron deficiency anemia acute De 2023 12:55pm [facility] Work Phone: 1(645) 482-945612-13-2024 Evaluation note* Diagnosis Onset Date Resolution Status Admit Date Iron deficiency anemia acute De cember 2023 12:55pm Axillary lymphadenopathy acute September 25, 2024 11:08am Iron deficiency anemia acute [facility]2024 11:08am [facility] Work Phone: 1(453) 376-851612-05-2024 History of Present illness Narrative* Renny Hansen [...] MOUTH EVERY DAY 90 tablet 0 HYDROcodone-acetaminophen (Alcove) 5-325 MG tablet Take 1 tablet by [...] As Previously Scheduled. documented in this encounterMissouri Delta Medical [id number] History of Present illness Narrative* Renny Hansen [...] MOUTH EVERY DAY 90 tablet 0 HYDROcodone-acetaminophen (Alcove) 5-325 MG tablet Take 1 tablet by [...] Greater than 25 minutes was spent in yyke-hq-zuum consultation and coordination of care. Persistent atrial fibrillation (HCC) (CMS/HCC) Nausea - FL upper GI double contrast w KUB; Future Follow up in about 2 weeks (around 08/16/2024) for Test/Lab Review. documented in this [facility]11-13-2024 Telephone encounter Note* Telephone Encounter - DANIELLE Florence - 07/25/2024 1:07 PM EST My chart message. [facility] [id number] Miscellaneous Notes* Telephone Encounter - DANIELLE Florence - 07/25/2024 1:07 PM EST My chart message. documented in this [facility]11-12-2024 History of Present illness Narrative* DANIELLE [...] arm. Pt does see pain magment in [place]. Sees their office next week on the [...] MOUTH EVERY DAY 90 tablet 0 HYDROcodone-acetaminophen (Alcove) 5-325 MG tablet Take 1 tablet by [...] Neck pain on left side Can continue Alcove as needed for pain. Radicular pain in [...] hypertension (CMS/HCC) The patient is seeing a pediatrician/medical doctor for this condition, treatment is deferred to that specialist. Correspondence from that specialist and any available testing were reviewed during today's visit. She will be having Cardiac Catheterization for further evaluation of the pulmonary hypertension. Other thrombophilia Will recheck with updated labs. Follow up in about 4 weeks (around 08/21/2024) for Next scheduled follow-up with Dr. Hansen. documented in this [facility]11-12-2024 Telephone encounter Note* Telephone Encounter - DANIELLE Florence - 07/24/2024 10:04 AM EST Will discuss with pt at today's OV [facility] [id number] Miscellaneous Notes* Telephone Encounter - DANIELLE Florence - 07/24/2024 10:04 AM EST Will discuss with pt at today's OV * Telephone Encounter - Renny Hansen MD - 07/05/2024 2:55 PM EDT Call after mammogram with plan. See last OV. documented in this [facility]11-06-2024 NoteUT Cardiology - [facility] Subjective Breann Starsk is a 78 y.o. year old female patient being seen for Atrial Fibrillation, PACEMAKER, Coronary Artery Disease, Hypertension, Sinus node dysfunction (HAS BOSTON PACER), Obesity, and Edema Patient Active Problem List Diagnosis Disorder of bursae of shoulder region Chronic obstructive lung disease (CMS/HCC) Atherosclerosis of navajo coronary artery of navajo heart without angina pectoris Diaphragmatic hernia Edema [...] rhythm, normal EKG Ech (more content not included)...[facility]10-24-2024 Telephone encounter Note* Telephone Encounter - Renny Hansen MD - 07/05/2024 2:55 PM EDT Call after mammogram with plan. See last OV. [facility] [id number] History of Present illness Narrative* Renny Hansen MD - 07/05/2024 9:00 AM EDT Images from the original note were not included. HPI Establish Care Additional comments: Previous pcp Dr Cira Saldivar cardiology-dr juan Holly-- orthopedic Last edited by Carlnee Yan LPN on 07/05/2024 8:59 AM. Subjective [...] MOUTH EVERY DAY 90 tablet 0 HYDROcodone-acetaminophen (Alcove) 5-325 MG tablet Take 1 tablet by [...] Greater than 45 minutes was spent in lrym-xz-dqao consultation and coordination of care. Follow up in about 4 months (around 11/05/2024) for Call after mammogram. documented in this encounterMissouri Delta Medical [id number] History of Present illness Narrative* Monster Calvillo [...] cough, significant edema noted to L side. CHRIS, LLE; Did not take Lasix today- was [...] suspected CHF exacerbation. documented in this encounterMissouri Delta Medical [id number] NoteHNO ID: [id number] Author: BOO BUCHANAN PA-C Service: ? Author Type: Physician Stave Bolt Equalizer Type: Progress Notes Filed: 05/22/2024 13:53 Note [...] recommended for second opinion at [facility]. She also had a CRP and ESR [...] COPD (chronic obstructive pulmonary disease) ([facility]) SOCIAL HISTORY: Tobacco Use: Never [...] to left shoulder joint prosthesis ([facility]) T84.84XA CT SHOULDER WO IVCON [...] of the hardware. Bone scan performed at [facility] to be uploaded to the system. Boo Buchanan (more content not included)...[facility] 05-22-2024 History of Present illness Narrative* [...] recommended for second opinion at [facility]. She also had a CRP and ESR [...] COPD (chronic obstructive pulmonary disease) ([facility]) SOCIAL HISTORY: Tobacco Use: Never [...] to left shoulder joint prosthesis ([facility]) T84.84XA CT SHOULDER WO IVCON [...] the hardware. Bone scan performed at [facility] to be uploaded to the system. Boo Buchanan PA-C documented in this [facility]24 NoteHNO ID: [id number] Author: JYOTHI CRUZ RT(Dario) Service: ? Author [...] PATIENT PRESENTS WITH AN IMPLANTABLE OR ATTACHED QUALITY CONTROL CHECKER: No RADIOLOGY DEPARTMENT: General X-ray: Exam(s) Completed: Upper Extremity X-Ray(s): Shoulder, AP / TRUE AP / AXILLARY / SUPRA OUTLET left PERIPHERAL IV DATA: Not applicable SIGNED BY: RT Chaparrita(Dario) May 22, 2024 1:25 [facility]09-10-2024 History of Present illness Narrative* Jyothi [...] PATIENT PRESENTS WITH AN IMPLANTABLE OR ATTACHED QUALITY CONTROL CHECKER: No RADIOLOGY DEPARTMENT: General X-ray: Exam(s) Completed: Upper Extremity X- Ray(s): Shoulder, AP / TRUE AP / AXILLARY / SUPRA OUTLET left PERIPHERAL IV DATA: Not applicable SIGNED BY: RT Chaparrita(R) May 22, 2024 1:25 PM documented in this [facility] History of Present illness Narrative* Jr. Sakina Cardenas, - 05/09/2024 10:00 AM EDT Images from the original note were not included. HISTORY OF PRESENT ILLNESS: EST PT Breann Starks is an 78 y.o. @ female. (EST PT ; LAST APPT W/ QUINN) RECHECK (L) SHOULDER PAIN ; HERE FOR BONE SCAN RESULTS 05/02/24 @ [facility] (VERBAL GIVEN PER QUINN - REFERRAL SENT TO DR AMIN) & LABS 05/09/24 @ [facility] (CBC / SED RATE / CRP) S/P (L) REVERSE TSR 12/29/21 - DR AMIN XRAYS, (L) SHOULDER & C-SPINE 04/16/24 IN [facility] ATTEMPTED MRI @ [facility] - UNABLE TO OBTAIN IMAGES D/T PACEMAKER PLACEMENT BONE SCAN 05/02/24 @ [facility] LABS 05/09/24 @ [facility] (CBC / SED [...] USING HER(L) ARM TO USE A BACK SOLIDWORKS MECHANICAL DESIGNER ON HER BACK ALLERGIES: Allergies Allergen Reactions Nsaids Other Reaction(s): HEART ISSUES Digoxin Rash Wound Dressing Adhesive Rash HOME MEDICATIONS: Current Outpatient Medications Medication Instructions apixaban (ELIQUIS) 5 mg, Oral, 2 times daily ferrous sulfate 325 mg, Oral, Daily with breakfast, Do not crush, chew, or split. flecainide (TAMBOCOR) 100 mg, Oral, Every 12 hours furosemide (LASIX) 40 mg, Oral, Daily HYDROcodone-acetaminophen (Alcove) 5-325 MG tablet 1 tablet, Oral, 3 [...] Elbow: none Palpation additional comments: Neg [employer] Supervisor strength symmetric. Wrist flex/ ext. Symmetric 5/5 [...] Sakina Cardenas D.O. documented in this encounterMissouri Delta Medical [id number] NoteChief Complaint consultation for anemia HPI Staff 78 year old female presents on consultation from [facility] [place] [facility] for anemia. Labs completed yesterday with [...] PSVT, spinal stenosis, cervical radiculopathy; referred from [facility] ED for anemia, low iron, [...] PSVT (paroxysmal supraventricular t (more content not included)...[facility]:Result Comment: Electronically Signed By: CATHERINE CUBA, Jair Quinonez\Date and Time Signed: 03/02/24 13:01 [id number] Evaluation note* Encounter Date Diagnosis Assessment Notes Treatment Notes Treatment Clinical Notes Sep, LOJA (nonalcoholic steatohepatitis) (ICD-10 - K75.81) OBTAIN FIBROSURE RESULTS FROM [facility] ON RESULTS PT ENCOURAGED WEIGHT LOSS RTO ONE YEAR WITH LABS ANNUALLY Sep, Unspecified cirrhosis of liver (ICD-10 - K74.60) [facility] Other 12-15-2021 Evaluation note* Encounter Date Diagnosis Assessment Notes Treatment Notes Treatment Clinical Notes Aug, Nonalcoholic steatohepatitis (LOJA) (ICD-10 - K75.81) RTO 6-8 WEEKS Aug, Unspecified cirrhosi s of liver (ICD-10 - K74.60) Aug, Morbid obesity (ICD- 10 - E66.01) [facility] Other Evaluation + Plan note No data available for this section [facility] [place] Evaluation noteNo assessment information available [facility] Work Phone: Evaluation note* Diagnosis 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)- Primary Left shoulder pain, unspecified chronicity Left shoulder pain, unspecified chronicity [facility] Left [facility] pain, unspecified chronicity [facility] Diagnosis Acute on chronic diastolic [...] Unspecified essential hypertension documented in this encounter [facility]* Diagnosis Essential hypertension (CMS/HCC)- [...] Other thrombophilia (CMS/HCC) documented in this encounter [facility]* Diagnosis Essential hypertension (CMS/HCC)- [...] blood loss (chronic) documented in this encounter [facility]* Diagnosis Essential hypertension (CMS/HCC)- [...] Nausea Nausea alone documented in this encounter [facility]* Diagnosis Essential hypertension (CMS/HCC)- [...] Nausea Nausea alone documented in this encounter [facility]* Diagnosis Acute pain of left shoulder- Primary History of reverse total replacement of left shoulder joint documented in this encounter [facility]* Diagnosis Chronic left shoulder pain Pain in joint, shoulder region documented in this encounter [facility]* Diagnosis Acute on chronic diastolic (congestive) heart failure (CMS/HCC)- Primary documented in this encounter [facility]* Diagnosis Essential hypertension [...] (CMS/HCC) Atrial fibrillation documented in this encounter [facility]* Diagnosis Essential hypertension [...] tissues of limb documented in this encounter [facility]* Diagnosis Essential hypertension [...] unspecified single disease documented in this encounter [facility]* Diagnosis Essential hypertension [...] of lymph nodes documented in this encounter [facility]* Diagnosis Essential hypertension (CMS/HCC)- [...] left upper extremity documented in this encounter [facility] note* Diagnosis Essential hypertension [...] initial encounter (CMS/HCC) documented in this encounter [facility] note* Diagnosis Essential hypertension [...] left shoulder joint documented in this encounter [facility] note* Diagnosis Essential hypertension [...] of lymph nodes documented in this encounter [facility] HealthcareEvaluation note* Diagnosis Essential hypertension (CMS/HCC)- [...] on chronic diastolic (congestive) heart failure- Primary RLS (restless legs syndrome)- Primary Restless legs syndrome (RLS) documented in this encounter [facility]* Diagnosis Essential hypertension- Primary Unspecified essential hypertension Persistent atrial fibrillation (HCC) Atrial fibrillation Chronic bilateral low back pain with bilateral sciatica Medicare annual wellness visit, subsequent Chronic obstructive pulmonary disease, unspecified COPD type (HCC)- Primary Persistent atrial fibrillation (HCC) Atrial fibrillation Sick sinus syndrome (I49.5) Sinoatrial node dysfunction Morbid (severe) obesity due to excess calories (E66.01) Body mass index [BMI] 45.0-49.9, adult (Z68.42) 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- Primary Chronic obstructive pulmonary disease, unspecified COPD type (HCC)- Primary Persistent atrial fibrillation (HCC) Atrial fibrillation Essential hypertension Unspecified essential hypertension Chronic bilateral low back pain with bilateral sciatica Class 3 severe obesity due to excess calories without serious comorbidity with body mass index (BMI) of 45.0 to 49.9 in adult (CMS-HCC) Acute on chronic diastolic (congestive) heart failure (HCC)- Primary Chronic left shoulder pain Pain in joint, shoulder region Acute on chronic diastolic (congestive) heart failure (HCC)- Primary Iron deficiency anemia due to chronic blood loss Iron deficiency anemia secondary to blood loss (chronic) Chronic left shoulder pain Pain in joint, shoulder region Iron deficiency anemia due to chronic blood loss- Primary Iron deficiency anemia secondary to blood loss (chronic) Chronic left shoulder pain Pain in joint, shoulder region Acute on chronic diastolic (congestive) heart failure (HCC)- Primary Chronic obstructive pulmonary disease, unspecified COPD type (HCC)- Primary documented in this encounter [facility]* Diagnosis Essential hypertension- Primary Unspecified essential hypertension Persistent atrial fibrillation (HCC) Atrial fibrillation Chronic bilateral low back pain with bilateral sciatica Medicare annual wellness visit, subsequent Chronic obstructive pulmonary disease, unspecified COPD type (HCC)- Primary Persistent atrial fibrillation (HCC) Atrial fibrillation Sick sinus syndrome (I49.5) Sinoatrial node dysfunction Morbid (severe) obesity due to excess calories (E66.01) Body mass index [BMI] 45.0-49.9, adult (Z68.42) 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- Primary Chronic obstructive pulmonary disease, unspecified COPD type (HCC)- Primary Persistent atrial fibrillation (HCC) Atrial fibrillation Essential hypertension Unspecified essential hypertension Chronic bilateral low back pain with bilateral sciatica Class 3 severe obesity due to excess calories without serious comorbidity with body mass index (BMI) of 45.0 to 49.9 in adult (CMS-HCC) Acute on chronic diastolic (congestive) heart failure (HCC)- Primary Chronic left shoulder pain Pain in joint, shoulder region Acute on chronic diastolic (congestive) heart failure (HCC)- Primary Iron deficiency anemia due to chronic blood loss Iron deficiency anemia secondary to blood loss (chronic) Chronic left shoulder pain Pain in joint, shoulder region Iron deficiency anemia due to chronic blood loss- Primary Iron deficiency anemia secondary to blood loss (chronic) Chronic left shoulder pain Pain in joint, shoulder region Acute on chronic diastolic (congestive) heart failure (HCC)- Primary Hematuria, unspecified type documented in this encounter [facility] general [...] Surgical History pacemaker Hospitalization History see above [facility] Other Hospital Discharge instructions No data available for this section [facility] Discharge instructionsAmbulatory Orders* Referral to General Surgery Location: [facility] Work Phone: Progress note No data available for this section [facility] [place] Reason for referral (narrative)* Diagnostic Procedure Only (Routine) - Closed Specialty Diagnoses / Procedures Referred By Millie t Referred To Contact XR IMAGING Diagnoses Left shoulder pain, unspecified chronicity Procedures XR SHOULDER ORTHO 4V AP/TRUE AP/LAT/OUTLET LEFT RADEX SHOULDER COMPLETE MINIMUM 2 VIEWS Boo Buchanan PA-C [address] [facility] [address] [place] [address] Referral ID Status Reason Start Date Expiration Date V isits Requested Visits Authorized [id number] Closed Auto-Generate d Referral 05/08/2024 06/07/2025 1 1 [facility] for visit Narrative* Diagnostic Procedure Only (Routine) - Closed Specialty Diagnoses / Procedures Referred By Contac t Referred To Contact XR IMAGING Diagnoses Left shoulder pain, unspecified chronicity Procedures XR SHOULDER ORTHO 4V AP/TRUE AP/LAT/OUTLET LEFT RADEX SHOULDER COMPLETE MINIMUM 2 VIEWS Boo Buchanan PA-C [address] [facility] [place] [address] [place] [address] Referral ID Status Reason Start Date Expiration Date V isits Requested Visits Authorized [id number] Closed Auto-Generate d Referral 05/08/2024 06/07/2025 1 1 [facility] for visit Narrative* Consultation (Routine) - Closed Specialty Diagnoses / Procedures Referred By Contac t Referred To Contact Neurology Diagnoses Neck pain on left side Procedures ND OFFICE/OUTPATIENT NEW HIGH MDM 60 MINUTES Renny Hansen MD [address] [facility] [address] [place] [address] Phone: tel: fax: Paula Lord MD [address] [place] [address] Phone: tel: fax: Referral ID Status Reason Start Date Expiration Date V isits Requested Visits Authorized [id number] Closed Specialty Services Required 09/13/2024 03/12/2025 1 1 [facility] Healthcare Summary Purpose Family History Relationship Condition [...] Referred By Millie egan Referred To Contact Diagnoses Chronic left shoulder pain Monster Calvillo, ELBERT [address] [place] [address] Referral ID Status Reason Start Date Expiration Date V isits Requested Visits Authorized [id number] Pending Review 05/16/2024 11/12/2024 1 1 Specialty Diagnoses / Procedures Referred By Millie egan Referred To Contact CT IMAGING Diagnoses 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) Procedures CT SHOULDER WO IVCON LEFT CT UPPER EXTREMITY W/O CONTRAST MATERIAL Boo Buchanan PA-C [address] [facility] [place] [address] [place] [address] Referral ID Status Reason Start Date Expiration Date Visits Requested Visits Authorized [id number] New Request Auto-Generat ed Referral 05/22/2024 06/21/2025 1 1 Specialty Diagnoses / Procedures Referred By Contac t Referred To Contact XR IMAGING Diagnoses Left shoulder pain, unspecified chronicity Procedures XR SHOULDER ORTHO 4V AP/TRUE AP/LAT/OUTLET LEFT RADEX SHOULDER COMPLETE MINIMUM 2 VIEWS Boo Buchanan PA-C [address] [place] [address] [place] [address] Referral ID Status Reason Start Date Expiration Date V isits Requested Visits Authorized [id number] Closed Auto-Generate d Referral 05/08/2024 06/07/2025 1 1 Additional Source Comments INFORMATION SOURCE (unrecogn ized section and content) DATE CREATED AUTHOR 10/23/2021 [facility] DATE CREATED AUTHOR AUTHOR'S ORGANIZ ATION 01/22/2022 [facility] DATE CREATED AUTHOR AUTHOR'S ORGANIZ ATION 02/18/2023 [facility] DATE CREATED AUTHOR AUTHOR'S ORGANIZ ATION 03/11/2024 [facility] DATE CREATED AUTHOR AUTHOR'S ORGANIZ ATION 05/24/2024 [facility] DATE CREATED AUTHOR AUTHOR'S ORGANIZ ATION 02/18/2025 [facility] DATE CREATED AUTHOR AUTHOR'S ORGANIZ ATION 02/25/2025 [facility] DATE CREATED AUTHOR AUTHOR'S ORGANIZ ATION 03/17/2025 [facility] DATE CREATED AUTHOR AUTHOR'S ORGANIZ ATION 04/20/2025 [facility] EPIC REASON FOR VISIT (unrecogniz ed section and content) Reason Comments Pain Specialty Diagnoses / Procedures Referred By Contac t Referred To Contact Orthopaedic Surgery Diagnoses Injury of left shoulder and upper arm, sequela Left shoulder pain, unspecified chronicity Renny Hansen MD [address] [facility] [address] [place] [address] Phone: tel: fax: Jr. Sakina Cardenas DO [address] [place] [address] Phone: tel: fax: Referral ID Status Reason Start Date Expiration Date V isits Requested Visits Authorized [id number] Closed Specialty Services Required 10/17/2024 04/15/2025 1 [...] Pedro Pablo Cruz PA [address] [facility] [address] [place] [address] González Alvarado MD [address] [place] [address] Referral ID Status Reason Start Date Expiration Date V isits Requested Visits Authorized [id number] Authorized 05/08/2024 09/11/2024 99 99 Reason Comments [...] October 11, 2023 End: October 11, 2023 Button Maker And Installer Relationship Specialty Start Date End Date Shaikh [...] May 02, 2024 End: May 02, 2024 Button Maker And Installer Relationship Specialty Start Date End Date Luisana Johnson MD [address] [place] [address] PCP - General 01/05/06 Pedro Pablo Cruz MD [address] [place], [place] [id number] Referring Infectious Diseases 05/07/24 Button Maker And Installer Relationship Specialty Start Date End Date Luisana Johnson MD [address] [place] [address] PCP - General 01/05/06 Pedro Pablo Cruz MD [address] [place] [address] Referring Infectious Diseases 05/07/24 Button Maker And Installer Relationship Specialty Start Date End Date Luisana Johnson MD [address] [place] [address] PCP - General 01/05/06 Pedro Pablo Cruz MD [address] [place] [address] Referring Infectious Diseases 05/07/24 Button Maker And Installer Relationship Specialty Start Date End Date Wesley Long MD [address] [place] [address] PCP - General Family Medicine 05/17/24 Monster Calvillo NP [address] [place] [address] Nurse Practitioner Family Medicine 05/17/24 Button Maker And Installer Relationship Specialty Start Date End Date Wesley Long MD [address] [place] [address] PCP - General Family Medicine 05/17/24 Monster Calvillo NP [address] [place] [address] Nurse Practitioner Family Medicine 05/17/24 Button Maker And Installer Relationship Specialty Start Date End Date Wesley Long MD [address] [place] [address] PCP - General Family Medicine 05/17/24 Monster Calvillo NP [address] [place] [address] Nurse Practitioner Family Medicine 05/17/24 Button Maker And Installer Relationship Specialty Start Date End Date Wesley Long MD [address] [place] [address] PCP - General Family Medicine 05/17/24 Monster Calvillo NP [address] [place] [address] Nurse Practitioner Family Medicine 05/17/24 Button Maker And Installer Relationship Specialty Start Date End Date Wesley Long MD [address] [place] [address] PCP - General Family Medicine 05/17/24 Monster Calvillo NP [address] [place] [address] Nurse Practitioner Family Medicine 05/17/24 Button Maker And Installer Relationship Specialty Start Date End Date Wesley Long MD [address] [place] [address] PCP - General Family Medicine 05/17/24 Montser Calvillo NP [address] [place] [address] Nurse Practitioner Family Medicine 05/17/24 Button Maker And Installer Relationship Specialty Start Date End Date Wesley Long MD [address] [place] [address] PCP - General Family Medicine 05/17/24 Monster Calvillo NP [address] [place] [address] Nurse Practitioner Family Medicine 05/17/24 Button Maker And Installer Relationship Specialty Start Date End Date Wesely Long MD [address] [place] [address] PCP - General Family Medicine 05/17/24 Monster Calvillo NP [address] [place] [address] Nurse Practitioner Family Medicine 05/17/24 Button Maker And Installer Relationship Specialty Start Date End Date Wesley Long MD [address] [place] [address] PCP - General Family Medicine 05/17/24 Monster Calvillo NP [address] [place] [address] Nurse Practitioner Family Medicine 05/17/24 Button Maker And Installer Relationship Specialty Start Date End Date Wesley Long MD [address] [place] [address] PCP - General Family Medicine 05/17/24 Monster Calvillo NP [address] [place] [address] Nurse Practitioner Family Medicine 05/17/24 Button Maker And Installer Relationship Specialty Start Date End Date Wesley Long MD [address] [place] [address] PCP - General Family Medicine 05/17/24 Monster Calvillo NP [address] [place] [address] Nurse Practitioner Family Medicine 05/17/24 Button Maker And Installer Relationship Specialty Start Date End Date Wesley Long MD [address] [place] [address] PCP - General Family Medicine 05/17/24 Monster Calvillo NP [address] [place] [address] Nurse Practitioner Family Medicine 05/17/24 Button Maker And Installer Relationship Specialty Start Date End Date Wesley Long MD [address] [place] [address] PCP - General Family Medicine 05/17/24 Monster Calvillo NP [address] [place] [address] Nurse Practitioner Family Medicine 05/17/24 Button Maker And Installer Relationship Specialty Start Date End Date Wesley Long MD [address] [place] [address] PCP - General Family Medicine 05/17/24 Monster Calvillo NP [address] [place] [address] Nurse Practitioner Family Medicine 05/17/24 Button Maker And Installer Relationship Specialty Start Date End Date Shaikh Denis MD [address] [place] [address] PCP - General Internal Medicine 10/17/23 Button Maker And Installer Relationship Specialty Start Date End Date Shaikh Denis MD [address] [place] [address] PCP - General Internal Medicine 10/17/23 Button Maker And Installer Relationship Specialty Start Date End Date Shaikh Denis MD [address] [place] [address] PCP - General Internal Medicine 10/17/23 Button Maker And Installer Relationship Specialty Start Date End Date Wesley Long MD [address] [place] [address] PCP - General Family Medicine 05/17/24 Monster Calvillo NP [address] [place] [address] Nurse Practitioner Family Medicine 05/17/24 Button Maker And Installer Relationship Specialty Start Date End Date Wesley Long MD [address] [place] [address] PCP - General Family Medicine 05/17/24 Monster Calvillo NP [address] [place] [address] Nurse Practitioner Family Medicine 05/17/24 Button Maker And Installer Relationship Specialty Start Date End Date Wesley Long MD [address] [place] [address] PCP - General Family Medicine 05/17/24 Monster Calvillo NP [address] [place] [address] Nurse Practitioner Family Medicine 05/17/24 Button Maker And Installer Relationship Specialty Start Date End Date Wesley Long MD [address] [place] [address] PCP - General Family Medicine 05/17/24 Monster Calvillo NP [address] [place] [address] Nurse Practitioner Family Medicine 05/17/24 Button Maker And Installer Relationship Specialty Start Date End Date Wesley Long MD [address] [place] [address] PCP - General Family Medicine 05/17/24 Monster Calvillo NP [address] [place] [address] Nurse Practitioner Family Medicine 05/17/24 Button Maker And Installer Relationship Specialty Start Date End Date Renny Hansen MD [address] [place] [address] PCP - General Internal Medicine 09/19/24 Team [...] September 25, 2024 End: September 25, 2024 Button Maker And Installer Relationship Specialty Start Date End Date Renny Hansen MD [address] [place] [address] PCP - General Internal Medicine 09/19/24 Button Maker And Installer Relationship Specialty Start Date End Date Renny Hansen MD [address] [place] [address] PCP - General Internal Medicine 09/19/24 Button Maker And Installer Relationship Specialty Start Date End Date Renny Hansen MD [address] [place] [address] PCP - General Internal Medicine 09/19/24 Button Maker And Installer Relationship Specialty Start Date End Date Renny Hansen MD [address] [place] [address] PCP - General Internal Medicine 09/19/24 Team [...] October 16, 2024 End: October 16, 2024 Button Maker And Installer Relationship Specialty Start Date End Date Renny Hansen MD [address] [place] [address] PCP - General Internal Medicine 09/19/24 Button Maker And Installer Relationship Specialty Start Date End Date Renny Hansen MD [address] [place] [address] PCP - General Internal Medicine 09/19/24 Team [...] Provider Active Start: October 29, 2024 Katharina Toledo APRN Attending Provider Active Start: October Button Maker And Installer Relationship Specialty Start Date End Date Renny Hansen MD [address] [place] [address] PCP - General Internal Medicine 09/19/24 Renny Hansen MD [address] [place] [address] PCP - Medical [place] 09/12/2409/11 Cindi Jenkins, [facility] Pencil Sorter Family Medicine 11/06/24 Button Maker And Installer Relationship Specialty Start Date End Date Renny Hansen MD [address] [place] [address] PCP - General Internal Medicine 09/19/24 Renny Hansen MD [address] [place] [address] PCP - Medical [place] 09/12/2409/11 Cindi Jenkins, [facility] P[employer]orter Family Medicine 11/06/24 Button Maker And Installer Relationship Specialty Start Date End Date Renny Hansen MD [address] [place] [address] PCP - General Internal Medicine 09/19/24 Renny Hansen MD [address] [place] [address] PCP - Medical [place] 09/12/2409/11 Cindi Jenkins, [facility] P[employer] Sorter Family Medicine 11/06/24 Button Maker And Installer Relationship Specialty Start Date End Date Renny Hansen MD [address] [place] [address] PCP - General Internal Medicine 09/19/24 Renny Hansen MD [address] [place] [address] PCP - Medical [place] 09/12/2409/11 Lisa Ramirez LPN 12/05/24 Button Maker And Installer Relationship Specialty Start Date End Date Renny Hansen MD [address] [place] [address] PCP - General Internal Medicine 09/19/24 Renny Hansen MD [address] [place] [address] PCP - Medical [place] 09/12/2409/11 Lisa Ramirez LPN 12/05/24 Button Maker And Installer Relationship Specialty Start Date End Date Renny Hansen MD [address] [place] [address] PCP - General Internal Medicine 09/19/24 Renny Hansen MD [address] [place] [address] PCP - Medical [place] 09/12/2409/11 Lisa Ramirez LPN 12/05/24 Button Maker And Installer Relationship Specialty Start Date End Date Renny Hansen MD [address] [place] [address] PCP - General Internal Medicine 09/19/24 Renny Hansen MD [address] [place] [address] PCP - Medical [place] 09/12/2409/11 Lisa Ramirez LPN 12/05/24 Button Maker And Installer Relationship Specialty Start Date End Date Renny Hansen MD [address] [place] [address] PCP - General Internal Medicine 09/19/24 Renny Hansen MD [address] [place] [address] PCP - Medical [place] 09/12/2409/11 Lisa Ramirez LPN 12/05/24 Button Maker And Installer Relationship Specialty Start Date End Date Renny Hansen MD [address] [place] [address] PCP - General Internal Medicine 09/19/24 Renny Hansen MD [address] [place] [address] PCP - Medical [place] 09/12/2409/11 Lisa Ramirez LPN [address] [place] [address] 12/05/24 Button Maker And Installer Relationship Specialty Start Date End Date Renny Hansen MD [address] [place] [address] PCP - General Internal Medicine 09/19/24 Renny Hansen MD [address] [place] [address] PCP - Medical [place] 09/12/2409/11 Lisa Ramirez LPN [address] [place] [address] 12/05/24 Button Maker And Installer Relationship Specialty Start Date End Date Renny Hansen MD [address] [place] [address] PCP - General Internal Medicine 09/19/24 Renny Hansen MD [address] [place] [address] PCP - Medical [place] 09/12/2409/11 Lisa Ramirez LPN [address] [place] [address] 12/05/24 Button Maker And Installer Relationship Specialty Start Date End Date Renny Hansen MD [address] [facility] [place] [address] PCP - General Internal Medicine 09/19/24 Renny Hansen MD [address] [facility] [place] [address] PCP - Medical [place] 09/12/2409/11 Lisa Ramirez LPN [address] [facility] [place] [address] 12/05/24 Goals (unrecognized section and content) Goals may be documented in a n alternate section Source Comments (unrecognize d section and content) In the event this informatio n is protected by the Federal Confidentiality of Alcohol and Drug Abuse Patient Records regulations: The Federal rules restrict any use of the information to criminally investigate or prosecute any alcohol or drug abuse patient.[facility] the event this information is protected by the Federal Confidentiality of Alcohol and Drug Abuse Patient Records regulations: The Federal rules restrict any use of the information to criminally investigate or prosecute any alcohol or drug abuse patient.[facility] the event this information is protected by the Federal Confidentiality of Alcohol and Drug Abuse Patient Records regulations: The Federal rules restrict any use of the information to criminally investigate or prosecute any alcohol or drug abuse patient.[facility] FOR RECORDS PERTAINING TO PATIENTS WHO ARE [...] BE BASED ON THE PRIMARY CLINICAL RECORDS. [employer] [facility]. provides no warranty or guarantee of the accuracy or completeness of information in this document.
[2025-04-24 13:26] LABS: Hematocrit 26.4 % (36.0-48.0); Hemoglobin 7.9 g/dL (12.0-16.0); Immature Granulocytes Abs Auto 0.02 10^3/uL (0.00-0.03); Immature Granulocytes Pct Auto 0.2 % (0.0-0.5); Lymphocytes Absolute Auto 2.0 10^3/uL (1.2-3.8); Mean Corpuscular HGB Conc 29.9 g/dL (29.9-35.2); Mean Corpuscular Hemoglobin 22.3 pg (26.7-34.0); Mean Corpuscular Volume 74.6 fL (81.0-99.0); Platelet Count 353 10^3/uL (150-450); Red Blood Count 3.54 10^6/uL (4.20-5.40); White Blood Count 8.6 10^3/uL (4.0-11.0)
[2025-04-24 14:21] LABS: Alanine Aminotransferase 28 U/L (14-59); Albumin Globulin Ratio 0.8; Albumin Level 3.4 g/dL (3.4-5.0); Alkaline Phosphatase 101 U/L (46-116); Anion Gap 13.6; Aspartate Amino Transferase 23 U/L (15-37); Blood Urea Nitrogen 23.0 mg/dL (7.0-18.0); Calcium 9.1 mg/dL (8.5-10.1); Carbon Dioxide 27.5 mmol/L (21.0-32.0); Chloride 105 mmol/L (98-107); Estimated GFR (African America >60 (>=60 mL/min/1.73m^2); Estimated GFR (Non-African Ame >60 (>=60 mL/min/1.73m^2); Globulin 4.4 g/dL; Glucose 106 mg/dL (74-106); Potassium 4.1 mmol/L (3.5-5.1); Sodium 142 mmol/L (136-145); Total Protein 7.8 g/dL (6.4-8.2)
[2025-04-24 14:27] LABS: Iron 13.0 ug/dL (50.0-170.0); Percent Iron Saturation 3.1 %; Total Iron Binding Capacity 420.0 ug/dL (250.0-450.0)
[2025-04-24 14:39] LABS: Ferritin 9.0 ng/mL (8.0-252.0)
[2025-04-25 15:08] LABS: Free Kappa Lt Chains,S 33.9 mg/L (3.3-19.4); Free Lambda Lt Chains,S 25.7 mg/L (5.7-26.3); Kappa/Lambda Ratio,S 1.32 (0.26-1.65)
[2025-04-25 16:09] LABS: Albumin 3.4 g/dL (2.9-4.4); Alpha-1-Globulin 0.2 g/dL (0.0-0.4); Alpha-2-Globulin 0.8 g/dL (0.4-1.0); Gamma Globulin 1.6 g/dL (0.4-1.8)
== END 2025-04-24 13:00 | disposition home or self-care (01) ==
LOC: LAB 13:05
PROVIDERS: PCP Internal Medicine; Visit Provider Internal Medicine
DX: D50.9 Iron deficiency anemia, unspecified (principal); R59.0 Localized enlarged lymph nodes
CPT/HCPCS: 36415; 80053; 82728; 83521; 83540; 83550; 83615; 84155; 84165; 85025; 85652

== ENCOUNTER 2025-05-02 12:44 | Outpatient (OUT) | payer MEDICARE, SELFPAY ==
--- OUTSIDE RECORDS SUMMARY | 2025-04-18 11:00 | XMS_ITS | Encounter Summary ---
Author Organization [facility] Address [address] [facility] [place] [address] Care Team Providers Care Finishing Machine Operator Automatic Name Role Phone Renny Hansen MD Primary Care Provider Renny Hansen MD Unavailable [phone] Lisa Ramirez LPN Unavailable Encounter Details Date Type Department Care Team (Late st Contact Info) Description 04/18/2025 11:00 AM EDT Office Visit [facility] 112 [facility] [address] [place] [id number] Eleanor Leahy PA 112 [facility] 110 [place] [address] Chronic obstructive pulmonary disease, unspecified COPD type (HCC) (Primary Dx) Social History Tobacco Use Types [...] How often do you attend chur or caodaism services? Patient declined 11/12/2024 Do you belong [...] Date Recorded Patient Health Questionnaire-2 Score 0 04/18/2025 [facility] [place] of Occupat ional Health - Occupational Stress [...] any time in the past 12 m [facility] [place], were you homeless or living in a senior living (including now)? No 11/12/2024 Comments Unknown Sex and Gender Information Value Date Recorded Sex Assigned at Not on file Legal Sex Female 6:35 PM EDT Gender Identity Not on file Sexual Orientation Not on file documented as of this encounter Last Filed Vital Signs Vital Sign Reading Time Taken Comments Blood Pressure 122/68 04/18/2025 11:04 AM EDT Pulse 71 04/18/2025 11:04 AM EDT Temperature - - Respiratory Rate 16 04/18/2025 11:04 AM EDT Oxygen Saturation 96% 04/18/2025 11:04 AM EDT Inhaled Oxygen Concentration - - Weight 102 kg (225 lb 12.8 oz) 04/18/2025 11:04 AM EDT Height 175.3 cm (5' 9 ) 04/18/2025 11:04 AM EDT Body Mass Index 33.34 04/18/2025 11:04 AM EDT documented in this encounter Functional Status * Over the past 2 weeks, how often have you been bothered by any of the following problems? Question Answer Date of Assessment Author Little interest or pleasure in doing things Not at all 04/18/2025 10:57 AM EDT Radha Iverson L PN Feeling down, depressed, or hopeless Not at all 04/18/2025 10:57 AM EDT Radha Iverson L PN Patient Health Questionnaire -2 Score 0 04/18/2025 10:57 AM EDT Radha Iverson L PN documented as of this encounter Progress Notes * DANIELLE Florence - 04/18/2025 11:00 AM EDT Images from the original note were not included. Subjective Patient ID: Breann Starks is a 79 y.o. female who presents for COPD. Breann is present today for follow up COPD. She has a nebulizer at home but is not working properly and it is over 20 years old. She would like it sent to [facility] in [place] ([email or web address] She uses it as needed. She does have a cough at night and a lot of phlegm that is yellow and clear. C/o shortness of breath which is relieved by nebulizer. Uses the nebulizer as needed. Was using it twice a week, sometimes three. Tried several inhalers, but they make her very sick. Even tried Breztri and Trelegy, when she uses them her body feels weird, and she doesn't feel like herself. Lungs hurt more. Heat makes her breathing worse. Feels chest pressure due to SOB if she overdoes it. Over the past 2 weeks, how often have you been bothered by any of the following problems? Little interest or pleasure in doing things: Not at all Feeling down, depressed, or hopeless: Not at all Patient Health Questionnaire-2 Score: 0 Current Outpatient Medications on File Prior to Visit Medication Sig Dispense Refill saccharomyces boulardii (Florastor) 250 MG capsule Take 250 mg by mouth in the morning and 250 mg before bedtime. apixaban (Eliquis) 5 MG tablet Take 1 [...] by mouth every 12 (twelve) hours HYDROcodone-acetaminophen ([place]) 5-325 MG tablet Take 1 tablet by [...] the evening and 500 mg before bedtime. rOPINIRole (Requip) 0.5 MG tablet Take 1 tablet (0.5 mg) by mouth in the evening. Take with meals (Patient not taking: Reported on 04/18/2025) 30 tablet 11 spironolactone (Aldactone) 50 MG tablet Take 50 mg by mouth in the morning. verapamil SR (Calan SR) 180 MG ER tablet Take 360 mg by mouth in the morning. [DISCONTINUED] acetaminophen (Tylenol) 500 MG tablet Take 1,000 mg by mouth every 6 (six) hours if needed for mild pain [DISCONTINUED] hydrocortisone ([place]-Andres) 0.2 % cream Apply topically 2 (two) times a day 45 g 1 No current facility-administered medications on file [...] Medical History: Diagnosis Date Anemia Atrial fibrillation (HCC) Centrilobular emphysema (HCC) COPD (chronic obstructive pulmonary disease) (HCC) COPD exacerbation (HCC) 10/17/2023 Coronary artery disease Diastolic dysfunction Essential hypertension History of tobacco abuse Nonalcoholic steatohepatitis (LOJA) Obstructive sleep apnea Osteoarthritis Paroxysmal atrial fibrillation (HCC) Peptic ulcer disease Secondary pulmonary arterial hypertension (HCC) Sick sinus syndrome (HCC) Spinal stenosis, lumbar region with neurogenic claudication SVT (supraventricular tachycardia) (HCC) URTI (acute upper respiratory infection) Vertigo Vitamin D deficiency Past Surgical History: Procedure Laterality Date APPENDECTOMY HYSTERECTOMY INSERT / REPLACE / REMOVE PACEMAKER OTHER SURGICAL HISTORY Abalation REVERSE TOTAL SHOULDER ARTHROPLASTY Left 12/29/2021 DR AMIN ROTATOR CUFF REPAIR Right SHOULDER ARTHROSCOPY Bilateral (L) , (R) x3 TOTAL KNEE ARTHROPLASTY Bilateral TRIGGER FINGER RELEASE Left RF Visit Vitals BP 122/68 Pulse 71 Resp 16 Ht 5' 9 Wt 225 lb 12.8 oz SpO2 96% BMI 33.34 kg/m?? Smoking Status Former BSA 2.23 m?? Review of Systems Constitutional: Negative for chills, fatigue and fever. Respiratory: Positive for cough (With phlegm) and shortness of breath. Negative for wheezing. Cardiovascular: Negative for chest pain, palpitations and leg swelling. Gastrointestinal: Negative for abdominal pain, constipation, diarrhea, nausea and vomiting. Skin: Negative for rash. Objective Physical Exam Constitutional: General: She is not in acute distress. Appearance: She is well-developed. She is obese. HENT: Head: Normocephalic and atraumatic. Eyes: General: No scleral icterus. Conjunctiva/sclera: Conjunctivae normal. Cardiovascular: Rate and Rhythm: Normal rate and regular rhythm. Heart sounds: Normal heart sounds. No murmur heard. Pulmonary: Effort: Prolonged expiration present. No respiratory distress. Breath sounds: Decreased air movement present. Decreased breath sounds present. No wheezing, rhonchi or rales. Skin: General: Skin is warm and dry. Neurological: General: No focal deficit present. Mental Status: She is alert and oriented to person, place, and time. Psychiatric: Mood and Affect: Mood normal. Behavior: Behavior normal. Assessment/Plan Diagnoses and all orders for this visit: Chronic obstructive pulmonary disease, unspecified COPD type (HCC) - ipratropium-albuterol (Duo-Neb) 0.5-2.5 mg/3 mL nebulizer solution; Take 3 mL by nebulization in the morning and 3 mL at noon and 3 mL in the evening and 3 mL before bedtime. - Respiratory Therapy Supplies (Nebulizer/Tubing/Mouthpiece) kit; 1 each See administration instructions Use daily as needed per instructions on medication. Patient is seen today for a face to face encounter in order to receive a new nebulizer and suppliesas hers is broken. Will fax order for nebulizer to [employer], . It is medically necessary for patient to have a nebulizer as she cannot tolerate inhalers, has tried and failed several. Has current diagnosis that supports need for a nebulizer, COPD. Pt has significant SOB with LEA, and worsening productive cough if she unable to use her nebulizer.She is unable to even walk from one room to the next in her home when her symptoms flare up. Symptoms are relieved with use of the nebulizer with Duo-Neb solution. Without use of the nebulizer, patient is at risk for COPD Exacerbation that may require hospitalization, as well as hypoxia which can lead to falls. Falls can cause potentially fatal injuries. Refill provided on the nebulizer solution also at today's visit. Follow up for Appointment As Scheduled. documented in this encounter Plan of Treatment Upcoming Encounters Date Type Department Care Team (Late st Contact Info) Description 05/16/2025 11:00 AM EDT Office Visit [facility] 112 [facility] [address] [place] [address] Renny Hansen MD 112 [facility] 110 [place] [address] documented as of this encounter Visit Diagnoses Diagnosis Chronic obstructive pulmonary disease, unspecified COPD type (HCC)- Primary documented in this encounter Additional Health Concerns Assessment Noted Time PHQ-9 Depression Total Score: 1 09/06/20 23 2:00 PM EST documented as of this encounter Care Teams Finishing Machine Operator Automatic Relationship Specialty Start Date End Date Renny Hansen MD [address] [facility] [address] [place] [address] PCP - General Internal Medicine 09/19/24 Renny Hansen MD [address] [facility] [address] [place] [address] PCP - Medical [facility] 09/12/2409/11 Lisa Ramirez LPN [address] [facility] 110 [place] [address] 12/05/24 documented as of this encounter
--- OUTSIDE RECORDS SUMMARY | 2025-04-24 09:30 | XMS_ITS | Encounter Summary ---
Author Organization [facility] Address [address] [facility] [place] [address] Care Team Providers Care Business Systems Architect Name Role Phone Renny Hansen MD Primary Care Provider [phone] Renny Hansen MD Unavailable [phone] Lisa Ramirez LPN Unavailable Encounter Details Date Type Department Care Team (Late st Contact Info) Description 04/24/2025 9:30 AM EDT Office Visit [facility] 112 [facility] 110 [place] [address] Shannon Robles, COLLECTION TECHNICIAN 112 [facility] 110 [place] [address] Hematuria, unspecified type Social History Tobacco Use [...] How often do you attend chur or spiritism services? Patient declined 11/12/2024 Do you belong [...] Recorded Patient Health Questionnaire-2 Score 0 04/24/2025 [facility] - Occupational Stress Questionnaire [...] a custodial (including now)? Patient refused 08/30/2023 Housing Stability [...] in the past 12 m [facility], were you homeless or living in a custodial (including now)? No 11/12/2024 Comments Unknown Sex [...] by mouth every 12 (twelve) hours HYDROcodone-acetaminophen ([place]) 5-325 MG tablet Take 1 tablet by [...] EDT Office Visit [facility] [place] Zendejas [address] [address] Renny Hansen MD 112 [facility] 110 [place] [address] Scheduled Orders Name Type Priority Associated Diagnoses [...] 04/24/2025 10:2 1 AM EDT Shannon Robles COLLECTION TECHNICIAN POINT OF CARE TEST ENTER/LUIS EDUARDO T ORDERABLES Final Result documented in this encounter Visit Diagnoses Diagnosis Hematuria, unspecified type documented in this encounter Additional Health Concerns Assessment Noted Time PHQ-9 Depression Total Score: 1 09/06/20 23 2:00 PM EST documented as of this encounter Care Teams Business Systems Architect Relationship Specialty Start Date End Date Renny Hansen MD 112 [facility] 110 [place] [address] PCP - General Internal Medicine 09/19/24 Renny Hansen MD [address] [facility] [address] [facility] 110 [place] [address] PCP - Medical [facility] 09/12/2409/11 Lisa Ramirez LPN [address] [facility] [address] [facility] 110 [place] [address] 12/05/24 documented as of this encounter
--- OUTSIDE RECORDS SUMMARY | 2025-05-02 12:47 | XMS_ITS | Encounter Summary ---
Author Organization [facility] Address [address] [facility] [place] [address] Care Team Providers Care Outside Plant Supervisor Name Role Phone Shaikh BEREKET Denis Primary Care Provider [phone] Jazmín Calvillo VOICE WRITING REPORTER Unavailable [phone] Renny Hansen MD Primary Care Provider [phone] Renny Hansen MD Unavailable [phone] Cindi Jenkins CREATIVE COORDINATOR Unavailable [phone] Lisa Ramirez POWER STATION OPERATOR Unavailable Encounter Details Date Type Department [...] week 08/30/2023 How often do you attend yarsanism or presybeterian serv ices? Patient declined 08/30/2023 Do you belong to any clubs o r organizations such as yarsanism groups, unions, [employer] or athletic groups, or school groups? Yes [...] Recorded Patient Health Questionnaire-2 Score 0 12/29/2023 [facility] of Occupat ional [facility] - Occupational Stress Questionnaire Answer [...] EDT Office Visit [facility] [place] Zendejas [address] [facility] 110 [place] [address] Renny Hansen MD 112 [facility] 110 [place] [address] documented as of this encounter Procedures Procedure Name Priority Date/Time Associated Diagnosis Comments XR SHOULDER 2+ VIEWS LEFT 02/22/2024 7:27 AM EDT documented in this encounter Results * XR shoulder 2+ views left (02/22/2024 7:27 AM EDT) Anatomical Region Laterality Modality Upper Extremities, Shoulder Left Radi ographic Imaging 02/22/2024 7:27 AM EDT Narrative 02/22/2024 7:30 AM EDT The [address] [address] XRay Report Signed Patient: MAXIMUS STARKS MR#: [id number] : 1945 Acct:[id number] Age/Sex: 78 / F ADM Date: 02/21/24 Loc: RAD Attending Dr: Mabel De León NP Ordering Physician: Mabel De León NP Date of Service: 02/21/24 Procedure(s): XR shoulder LT min 2V Accession Number(s): [id number] cc: Shaikh Magui Denis; Mabel De León NP The [address] [address] Patient Name: MAXIMUS STARKS MRN: [facility]:[id number] date: 1945 Sex: F Assigned Patient Location: [facility] Current Patient Location: Accession/Order Number: [id number] Exam Date: 02/21/2024 17:48 Report Date: 02/22/2024 [...] Alston M.D. Signed By: 02/22/2430 DD/ TD/TT: Distance Education Director: Procedure Note Radiology, Radiologist, MD - 02/22/[address] [address] XRay Report Signed Patient: MAXIMUS STARKS TMR#: [id number] : 8Acct:[id number] Age/Sex: 78 / FADM Date: 02/21/24 Loc: RAD Attending Dr: Mabel Urbano VOICE WRITING REPORTER Ordering Physician: Mabel De León NP Date of Service: 02/21/24 Procedure(s): XR shoulder LT min 2V Accession Number(s): [id number] cc: Shaikh Magui Denis; Mabel De León NP [address] [address] Patient Name: MAXIMUS STARKS MRN: [facility]:[id number] date: 1945 Sex: F Assigned Patient Location: [facility] Current Patient Location: Accession/Order Number: [id number] Exam Date: 02/21/2024 17:48 Report Date: 02/22/2024 [...] no mechanical failure Electronically authenticated by: HONG LASTON Date: 02/22/2024 07:27 Dictated By: Hong Alston M.D. Signed By:02/22/24729 DD/ 6 TD/TT: Distance Education Director: Generic External Data Provider IMG XR PROCEDURES Final Result documented in this encounter Visit Diagnoses Not on filedocumented in this encounter Additional Health Concerns Assessment Noted Time PHQ-9 Depression Total Score: 1 09/06/20 23 2:00 PM EST documented as of this encounter Care Teams Outside Plant Supervisor Relationship Specialty Start Date End Date Shaikh Denis MD [address] [place] [address] PCP - General Internal Medicine 10/17/23 05/16/24 Renny Hansen MD [address] [address] [place] [address] PCP - General Internal Medicine 09/19/24 Renny Hansen MD [address] [address] PCP - Medical [place] 09/12/2409/11 Jazmín Calvillo NP [address] [facility] [place] [address] Nurse Practitioner Family Medicine 05/17/24 09/18/24 Cindi Jenkins, GIDEON [address] [place], [place] [id number] Transcription Family Medicine 11/06/24 12/05/24 Lisa Ramirez LPN [address] [address] 12/05/24 documented as of this encounter
--- OUTSIDE RECORDS SUMMARY | 2025-05-02 12:47 | XMS_ITS | Clinical Summary ---
Author Organization [facility] Address [address] [facility] [place] [address] Phone Care Team Providers Care Bookmobile Librarian Name Role Phone Unavailable Primary Care Provider [...]
--- OUTSIDE RECORDS SUMMARY | 2025-05-02 12:47 | XMS_ITS | Clinical Summary ---
Author Organization [facility] Address [address] [facility] [place] [address] Care Team Providers Care Boring Machine Operator Production Name Role Phone Renny Hansen MD Primary Care Provider [phone] Renny Hansen MD Unavailable [phone] Lisa Ramirez LPN Unavailable Allergies Active [...] before bedtime. 06/21/20 24 Active HYDROcodone-henrique taminophen (Defiance) 5-325 MG tablet Take 1 tablet by [...] on medication. 1 kit 04/18/20 25 Active acetaminophen (Tylenol) 500 MG tabletIndicatio ns:Axillary lymphadenopathy ,Left arm pain Take 1,000 mg by mouth every 6 (six) hours if needed for mild pain 025 Discontinu ed(Other) ipratropium-alb uterol (Duo-Neb) 0.5-2.5 mg/3 mL nebulizer solution Take 3 mL by nebulization in the morning and 3 mL at noon and 3 mL in the evening and 3 mL before bedtime. 05/25/20 025 Discontinu ed(Reorder ) hydrocortisone (West-Andres) 0.2 % creamIndication s:Phlebitis of left upper extremity Apply topically 2 (two) times a day 45 g 1 10/17/19 25 025 Discontinu ed(Therapy completed) azithromycin (Zithromax) 250 MG tabletIndicatio ns:Upper respiratory tract infection, unspecified type Take 2 tablets (500 mg) by mouth Daily for 1 day, THEN 1 tablet (250 mg) Daily for 4 days. 6 tablet 04/01/20 25 025 nitrofurantoin, macrocrystal-mo nohydrate, (Macrobid) 100 MG capsuleIndicati ons:Hematuria, unspecified type Take 1 capsule (100 mg) by mouth in the morning and 1 capsule (100 mg) before bedtime. Do all this for 7 days. 14 capsule 04/24/20 025 Active Problems Problem Noted Date Diagnosed [...] place. MRI ordered, awaiting approval. Will order Defiance as needed as it helped with pain. [...] get device check to assess AF burden -[id number] 3 -Continue Xarelto 20 mg daily, continue propafenone to 25 mg 3 times a day Assessment & Plan (12/29/2023 2:36 PM EDT): S/P PPM. Follows [facility] cardiology. On Xarelto for stroke px. Also uses Flecainide, Verapamil. Assessment & Plan (11/07/2023 3:16 PM EST): S/P PPM. Follows [facility] cardiology. On Xarelto for stroke px. Also uses Flecainide, Verapamil. Assessment & Plan (09/06/2023 2:46 PM EST): S/P PPM. Follows [facility] cardiology. On Xarelto for stroke px. Sinus node dysfunction 10/07/2020 Overview (09/06/2023): Last Assessment & Plan: - S/p PPM [employer] scientific -We will have her scheduled [...] Encounters Date Type Department Care Team Description 04/25/2025 Abstract [facility] [place] [address] [facility] [address] [place] [id number] Renny Hansen MD 04/24/2025 9:30 AM EDT Office Visit [facility] [place] Zendejas [address] [place] [address] [place] [phone] Shannon Robles NP Hematuria, unspecified type 04/24/2025 External Result Encounter NOMS External Department Unsolicited Shannon Robles NP 04/24/2025 Clinisync Result Encounter NOMS External Department Unsolicited Provider, Generic External Data 04/24/2025 Bamboo flowsheet [facility] [place] Terry [address] [place] [phone] Shannon Robles NP 04/24/2025 Travel 04/18/2025 11:00 AM EDT Office Visit [facility] [place] Terry [address] [place] [address] [place] [phone] Eleanor Leahy, PA Chronic obstructive pulmonary disease, unspecified COPD type (HCC) (Primary Dx) 04/18/2025 Bamboo flowsheet [facility] [place] [facility] [address] [place] [address] [place] [address] Eleanor Leahy PA 04/18/2025 Travel 04/17/2025 Telephone [facility] [place] [facility] [address] [address] [place] [address] Renny Hansen MD 04/15/2025 Patient Outreach [facility] [address] [place] [address] Lisa Ramirez MUTUAL FUND MANAGER 04/15/2025 Telephone [facility] [place] [facility] [address] [place] [address] Renny Hansen MD 04/05/2025 Patient Outreach [facility] [address] [place] [address] Lisa Ramirez [facility] 04/01/2025 Telephone [facility] [place] [facility] [address] [place] [address] Renny Hansen MD 03/22/2025 Refill [facility] [place] [facility] [address] [place] [address] Renny Hansen MD 02/21/2025 Clinisync Result Encounter NOMS External Department Unsolicited Provider, Generic External Data 02/18/2025 11:30 AM EDT Office Visit [facility] [place] [facility] [address] [place] [address] Renny Hansen MD RLS (restless legs syndrome) (Primary Dx) 02/18/2025 Bamboo flowsheet [facility] [place] [facility] [address] [place] [address] Renny Hansen MD 02/18/2025 Travel 02/11/2025 Travel 02/08/2025 Refill [facility] [place] [facility] [address] [place] [address] Renny Hansen MD Persistent atrial fibrillation (HCC) 02/06/2025 Patient Outreach [facility] [address] [place] [address] Saira Chi, ANTWAN from Last 3 Months Immunizations Immunization Administration [...] week 11/12/2024 How often do you attend [facility] or sabianism services? Patient declined 11/12/2024 Do you belong to any clubs o r organizations such as mormonism groups, unions, fraternal or athletic groups, or [...] Recorded Patient Health Questionnaire-2 Score 0 04/24/2025 [facility] of Occupat ional Health - Occupational Stress [...] any time in the past [address] [place] [place], were you homeless or living in a [...] AM EDT Office Visit [facility] [place] [facility] 112 [facility] 110 [place] [address] Renny Hansen MD 112 [facility] 110 [place] [address] Health Maintenance Due Date Last Done Comments Influenza Vaccine (#1) 2025 , 08/25/2023, 08/25/2023, Additional history exists Medicare Annual Wellness (AWV) 10/17/2025 0 10/17/2024, 09/06/2023, 09/06/2023 Pneumococcal Vaccine: 65+ Years Completed 08/20/2021, 08/04/2020, 07/05/2017 Colonoscopy Discontinued 03/07/2024, 09/12/2017 Colorectal Cancer Screening Discontinued CT Colonography Discontinued FIT-DNA Discontinued FIT Discontinued FOBT Discontinued Sigmoidoscopy Discontinued Procedures Procedure Name Priority Date/Time Associated Diagnosis Comments FREE K+L LT CHAINS,QN,S Routine 04/24/2025 1:20 PM EDT PROTEIN ELECTRO.,S Routine 04/24/2025 1: 20 PM EDT [facility] FERRITIN Routine 04/24/2025 1:20 PM EDT METRO IRON AND TIBC Routine 04/24/2025 1 :20 PM EDT ALL LDH Routine 04/24/2025 1:20 PM EDT [facility] CMP (CMP) (FOR REMOTE [facility] USE) Routine 04/24/2025 1:20 PM EDT ALL SED RATE Routine 04/24/2025 1:20 PM EDT ALL CBC WITH AUTO DIFF Routine 04/24/2025 1:20 PM EDT POCT URINALYSIS DIPSTICK Routine 04/24/2025 10:21 AM EDT Hematuria, unspecified type URINARY TRACT INFECTION (HTRX) Routine 04/24/2025 12:00 AM EDT ALL CBC WITH AUTO DIFF Routine 02/21/2025 3:05 PM EDT ALL C REACTIVE PROTEIN Routine 02/21/2025 3:05 PM EDT ALL BASIC METABOLIC PANEL Routine 02/21/2025 3:05 PM EDT from Last 3 Months Results * (ABNORMAL) FREE K+L LT CHAINS,QN,S (04/24/2025 1:20 PM EDT) FREE KAPPA LT CHAINS,S 33.9(A) 3.3 - 19.4 mg/L [facility] FREE LAMBDA LT CHAINS,S 25.7 5.7 - 26.3 mg/L TBH KAPPA/LAMBDA RATIO,S 1.32 0.26 - 1.65 TBH Comment: Performed at: - [address] [id number] Clin Application Specialist: Baudilio Givens PhD, Phone: [phone] 04/24/2025 1:20 PM EDT 04/24/2025 1:22 PM EDT Narrative CLINISYNC - 04/25/2025 4:09 PM EDT Generic External Data Provider LAB BLOOD ORDERAB LES Final Result [facility] * PROTEIN ELECTRO.,S (04/24/2025 1:20 PM EDT) Pathologist [facility] PROTEIN, TOTAL 7.1 6.0 - 8.5 g/dL TBH ALBUMIN 3.4 2.9 - 4.4 g/dL TBH XCYIG-2-SXUOYQBO 0.2 0.0 - 0.4 g/dL TBH AIGEQ-7-EPRIYFGT 0.8 0.4 - 1.0 g/dL TBH BETA GLOBULIN 1.1 0.7 - 1.3 g/dL TBH GAMMA GLOBULIN 1.6 0.4 - 1.8 g/dL TBH M-SPIKE Not Observed Not Observed g/dL TBH GLOBULIN, TOTAL 3.7 2.2 - 3.9 g/dL TBH A/G RATIO 0.9 0.7 - 1.7 TBH PLEASE NOTE: Comment . TBH Comment: Protein electrophoresis scan will follow via computer, mail, or meter readers supervisor delivery. Performed at: [facility] [id number] Clin Application Specialist: Baudilio Givens PhD, Phone: [phone] 04/24/2025 1:20 PM EDT 04/24/2025 1:22 PM EDT Narrative ROCCOJOERYANN - 04/25/2025 4:09 PM EDT Generic External Data Provider LAB BLOOD ORDERAB LES Final Result [facility] * (ABNORMAL) METRO IRON AND TIBC (04/24/2025 1:20 PM EDT) Pathologist [facility] TB IRON 13.0(L) 50.0 - 170.0 ug/dL TBH TBH TOTAL IRON BINDING CAPACITY 420.0 250.0 - 450.0 ug/dL TBH TBH PERCENT IRON SATURATION 3.1 % TBH 04/24/2025 1:20 PM EDT 04/24/2025 1:22 PM EDT Narrative CLINISYNC - 04/24/2025 2:28 PM EDT Generic External Data Provider ROCCOISYNC F inal Result CLINISYNC TBH * [facility] FERRITIN (04/24/2025 1:20 PM EDT) FERRITIN 9.0 8.0 - 252.0 ng/mL TB 04/24/2025 1:20 PM EDT 04/24/2025 1:22 PM EDT Narrative CLINISYNC - 04/24/2025 2:39 PM EDT Generic External Data Provider CLINISYNC F inal Result CLINISYNC TBH * (ABNORMAL) [facility] CMP (CMP) (FOR REMOTE [facility] USE) (04/24/2025 1:20 PM EDT) SODIUM 142 136 - 145 mmol/L TBH POTASSIUM 4.1 3.5 - 5.1 mmol/L TBH CHLORIDE 105 98 - 107 mmol/L TBH CARBON DIOXIDE 27.5 21.0 - 32.0 mmol/L TBH ANION GAP 13.6 TBH GLUCOSE 106 74 - 106 mg/dL TBH BLOOD UREA NITROGEN 23.0(H) 7.0 - 18.0 mg/dL TBH CREATININE 0.73 0.55 - 1.02 mg/dL TBH TBH EGFR-AF COSTA RICAN >60 >=60 mL/min/1. 73m 2 TBH TBH EGFR-NON AF COSTA RICAN >60 >=60 mL/min/1. 73m 2 TBH BUN CREATININE RATIO 31.5 TBH CALCIUM 9.1 8.5 - 10.1 mg/dL TBH BILIRUBIN TOTAL 0.4 0.2 - 1.0 mg/dL TBH ASPARTATE AMINO TRANSFERASE 23 15 - 37 U/L TBH ALANINE AMINOTRANSFERASE 28 14 - 59 U/L TBH ALKALINE PHOSPHATASE 101 46 - 116 U/L TB TOTAL PROTEIN 7.8 6.4 - 8.2 g/dL TBH ALBUMIN LEVEL 3.4 3.4 - 5.0 g/dL TBH GLOBULIN 4.4 g/dL TBH ALBUMIN GLOBULIN RATIO 0.8 TBH 04/24/2025 1:20 PM EDT 04/24/2025 1:22 PM EDT Narrative CLINISYNC - 04/24/2025 2:24 PM EDT Generic External Data Provider CLINISYNC F inal Result Performing Organization Address [facility] de Phone Number CLINISYNC TB * (ABNORMAL) ALL SED RATE (04/24/2025 1:20 PM EDT) [facility] SED RATE 91(H) <=30 mm/hr TB 04/24/2025 1:20 PM EDT 04/24/2025 1:22 PM EDT Narrative CLINISYNC - 04/24/2025 1:43 PM EDT Generic External Data Provider CLINISYNC F inal Result Performing Organization Address [facility] de Phone Number CLINISYNC TB * ALL LDH (04/24/2025 1:20 PM EDT) [facility] LACTATE DEHYDROGENASE 168 81 - 234 U/L TB 04/24/2025 1:20 PM EDT 04/24/2025 1:22 PM EDT Narrative CLINISYNC - 04/24/2025 2:24 PM EDT Generic External Data Provider CLINISYNC F inal Result Performing Organization Address [facility] de Phone Number CLINISYNC TB * (ABNORMAL) ALL CBC WITH AUTO DIFF (04/24/2025 1:20 PM EDT) Only the most recent of2 resultswithin the time period is included. [facility] WBC 8.6 4.0 - 11.0 10 3/uL TBH TBH RBC 3.54(L) 4.20 - 5.40 10 6/uL TBH TBH HGB 7.9(L) 12.0 - 16.0 g/dL TBH TBH HCT 26.4(L) 36.0 - 48.0 % TBH TBH MCV 74.6(L) 81.0 - 99.0 fL TBH TBH MCH 22.3(L) 26.7 - 34.0 pg TBH TBH MCHC 29.9 29.9 - 35.2 g/dL TBH TBH RDW 16.6(H) 11.0 - 15.0 % TBH TBH PLT 353 150 - 450 10 3/uL TBH TBH MPV 8.7(L) 9.5 - 13.5 fL TBH NEUTROPHILS PERCENT AUTO 66.4 43.0 - 75.0 % TBH LYMPHOCYTES PERCENT AUTO 23.5 20.5 - 60.0 % TBH MONOCYTES PERCENT AUTO 7.1 1.7 - 12.0 % TBH TBH EO % 2.2 0.9 - 7.0 % TBH BASOPHILS PERCENT AUTO 0.6 0.2 - 2.0 % TBH IMMATURE GRANULOCYTES PCT AUTO 0.2 0.0 - 0.5 % TBH NEUTROPHILS ABSOLUTE AUTO 5.7 1.4 - 6.5 10 3/uL TBH LYMPHOCYTES ABSOLUTE AUTO 2.0 1.2 - 3.8 10 3/uL TBH MONOCYTES ABSOLUTE AUTO 0.6 0.3 - 0.8 10 3/uL TBH TBH EO # 0.2 0.0 - 0.7 10 3/uL TBH BASOPHILS ABSOLUTE AUTO 0.1 0.0 - 0.1 10 3/uL TBH IMMATURE GRANULOCYTES ABS AUTO 0.02 0.00 - 0.03 10 3/uL TBH 04/24/2025 1:20 PM EDT 04/24/2025 1:22 PM EDT Narrative CLINISYNC - 04/24/2025 1:27 PM EDT us Generic External Data Provider DIONICIO F inaankur Result DIONICIO [facility] * (ABNORMAL) POCT Urinalysis dipstick (04/24/2025 10:21 [...] 04/24/2025 10:2 1 AM EDT Shannon Robles NP POINT OF CARE TEST ENTER/LUIS EDUARDO T ORDERABLES Final Result * (ABNORMAL) URINARY TRACT INFECTION (HTRX) (04/24/2025 12:00 AM EDT) [facility] ACINETOBACTER BAUMANII 0 19.961 - 24.689 ppm 04/25/2025 11:13 AM EDT [facility] ACINETOBACTER BAUMANII Not Detected 19.961 - 24.689 ppm 04/25/2025 11:13 AM EDT [facility] CITROBACTER FREUNDII 0 23.000 - 32.015 ppm 04/25/2025 11:13 AM EDT [facility] CITROBACTER FREUNDII Not Detected 23.000 - 32.015 ppm 04/25/2025 11:13 AM EDT [facility] ENTEROBACTER AEROGENES, CLOACAE 0 23.000 - 32.290 ppm 04/25/2025 11:13 AM EDT [facility] ENTEROBACTER AEROGENES, CLOACAE Not Detected 23.000 - 32.290 ppm 04/25/2025 11:13 AM EDT [facility] ENTEROCOCCUS FAECALIS, FAECIUM 0 26.000 - 33.043 ppm 04/25/2025 11:13 AM EDT [facility] ENTEROCOCCUS FAECALIS, FAECIUM Not Detected 26.000 - 33.043 ppm 04/25/2025 11:13 AM EDT [facility] ESCHERICHIA COLI 22.906(A) 23.000 - 28.500 ppm 04/25/2025 11:13 AM EDT [facility] ESCHERICHIA COLI Detected(A) 23.000 - 28.500 ppm 04/25/2025 11:13 AM EDT [facility] KLEBSIELLA PNEUMONIAE, OXYTOCA 0 23.000 - 31.865 ppm 04/25/2025 11:13 AM EDT [facility] KLEBSIELLA PNEUMONIAE, OXYTOCA Not Detected 23.000 - 31.865 ppm 04/25/2025 11:13 AM EDT [facility] MORGANELLA MORGANII 0 19.961 - 24.689 ppm 04/25/2025 11:13 AM EDT [facility] MORGANELLA MORGANII Not Detected 19.961 - 24.689 ppm 04/25/2025 11:13 AM EDT [facility] PROTEUS MIRABILIS, VULGARIS 0 23.000 - 28.500 ppm 04/25/2025 11:13 AM EDT [facility] PROTEUS MIRABILIS, VULGARIS Not Detected 23.000 - 28.500 ppm 04/25/2025 11:13 AM EDT [facility] PSEUDOMONAS AERUGINOSA 0 23.000 - 31.801 ppm 04/25/2025 11:13 AM EDT [facility] PSEUDOMONAS AERUGINOSA Not Detected 23.000 - 31.801 ppm 04/25/2025 11:13 AM EDT [facility] STAPHYLOCOCCUS AUREUS 0 26.000 - 31.595 ppm 04/25/2025 11:13 AM EDT [facility] STAPHYLOCOCCUS AUREUS Not Detected 26.000 - 31.595 ppm 04/25/2025 11:13 AM EDT [facility] STREPTOCOCCUS AGALACTIAE (GROUP B STREP) 0 26.000 - 32.435 ppm 04/25/2025 11:13 AM EDT [facility] STREPTOCOCCUS AGALACTIAE (GROUP B STREP) Not Detected 26.000 - 32.435 ppm 04/25/2025 11:13 AM EDT [facility] RASHID ALBICANS, PARAPSILOSIS, TROPICALIS 0 23.000 - 30.347 ppm 04/25/2025 11:13 AM EDT [facility] RASHID ALBICANS, PARAPSILOSIS, TROPICALIS Not Detected 23.000 - 30.347 ppm 04/25/2025 11:13 AM EDT [facility] R[facility] GLABRATA 0 23.000 - 31.618 ppm 04/25/2025 11:13 AM EDT [facility] RASHID GLABRATA Not Detected 23.000 - 31.618 ppm 04/25/2025 11:13 AM EDT [facility] RASHID KRUSEI 0 23.000 - 30.873 ppm 04/25/2025 11:13 AM EDT [facility] RASHID KRUSEI Not Detected 23.000 - 30.873 ppm 04/25/2025 11:13 AM EDT [facility] SERRATIA MARCESCENS 0 23.000 - 31.581 ppm 04/25/2025 11:13 AM EDT [facility] SERRATIA MARCESCENS Not Detected 23.000 - 31.581 ppm 04/25/2025 11:13 AM EDT [facility] STREPTOCOCCUS PYOGENES (GROUP A STREP) 0 19.961 - 24.689 ppm 04/25/2025 11:13 AM EDT [facility] STREPTOCOCCUS PYOGENES (GROUP A STREP) Not Detected 19.961 - 24.689 ppm 04/25/2025 11:13 AM EDT [facility] STAPHYLOCOCCUS EPIDERMIDIS, HAEMOLYTICUS, LUGDUNENSIS, SAPROPHYTICUS (URINA 0 19.961 - 24.689 ppm 04/25/2025 11:13 AM EDT [facility] STAPHYLOCOCCUS EPIDERMIDIS, HAEMOLYTICUS, LUGDUNENSIS, SAPROPHYTICUS (URINA Not Detected 19.961 - 24.689 ppm 04/25/2025 11:13 AM EDT [facility] STAPHYLOCOCCUS EPIDERMIDIS, HAEMOLYTICUS, LUGDUNENSIS, SAPROPHYTICUS (URINA 0 19.961 - 24.689 ppm 04/25/2025 11:13 AM EDT [facility] STAPHYLOCOCCUS EPIDERMIDIS, HAEMOLYTICUS, LUGDUNENSIS, SAPROPHYTICUS (URINA Not Detected 19.961 - 24.689 ppm 04/25/2025 11:13 AM EDT [facility] TET B, TET M 27.112(A) 23.000 - 27.500 ppm 04/25/2025 11:13 AM EDT [facility] TET B, TET M Detected(A) 23.000 - 27.500 ppm 04/25/2025 11:13 AM EDT [facility] Urine 04/24/2025 04/25/2025 4:2 8 AM EDT us Shannon Robles DIRECTOR RECORDS MANAGEMENT LAB BLOOD ORDERABLES Final R esult [facility] [address] [place] [address] * ALL C REACTIVE PROTEIN (02/21/2025 3:05 PM EDT) C REACTIVE PROTEIN <0.50 <=0.50 mg/dL TB 02/21/2025 3:05 PM EDT 02/21/2025 3:06 PM EDT Narrative CLINISYNC - 02/21/2025 3:32 PM EDT us Generic External Data Provider CLINISYNC F jeisonl Result CLINISYNC TB * (ABNORMAL) ALL BASIC METABOLIC PANEL (02/21/2025 3:05 PM EDT) SODIUM 137 136 - 145 mmol/L TBH POTASSIUM 4.3 3.5 - 5.1 mmol/L TBH CHLORIDE 100 98 - 107 mmol/L TBH CARBON DIOXIDE 27.6 21.0 - 32.0 mmol/L TBH ANION GAP 13.7 TBH GLUCOSE 100 74 - 106 mg/dL TB BLOOD UREA NITROGEN 22.0(H) 7.0 - 18.0 mg/dL TBH CREATININE 0.78 0.55 - 1.02 mg/dL TBH TBH EGFR-AF COSTA RICAN >60 >=60 mL/min/1.7 3m 2 TBH TBH EGFR-NON AF COSTA RICAN >60 >=60 mL/min/1.7 3m 2 TBH BUN CREATININE RATIO 28.2 TBH CALCIUM 9.3 8.5 - 10.1 mg/dL TBH 02/21/2025 3:05 PM EDT 02/21/2025 3:06 PM EDT Narrative [facility] - 02/21/2025 3:32 PM EDT us Generic External Data Provider [facility] F inal Result [facility] from Last 3 Months Insurance [employer] Care Teams [employer] Relationship Specialty Start Date End Date Renny Hansen MD [address] [facility] [address] [place] [address] PCP - General Internal Medicine 09/19/24 Renny Hansen MD [address] [facility] [address] [place] [address] PCP - Medical [place] [id number] Lisa Ramirez LPN [address] [facility] [address] [place] [address] 12/05/24
--- OUTSIDE RECORDS SUMMARY | 2025-05-02 12:47 | XMS_ITS | Encounter Summary ---
Author Organization [facility] Address [address] [place] [address] Care Team Providers Care It Service Manager Name Role Phone Renny Hansen MD Primary Care Provider [phone] Renny Hansen MD Unavailable [phone] Cindi Jenkins MAJOR CASE DETECTIVE Unavailable [phone] Lisa Ramirez COMMERCIAL CENSUS TAKER Unavailable Encounter Details Date Type Department Care Team (Late st Contact Info) Description 10/16/2024 External Result Encounter [facility]S External Department Unsolicited Dmitriy Duque, DO [address] [place] [address] Social History Tobacco Use Types Packs/Day Years [...] file 10/10/2024 How often do you attend bahai or jain serv ices? Patient declined 10/10/2024 [...] Patient Health Questionnaire-2 Score 0 10/17/2024 [facility] of Occupat ional [...] any time in the past 12 m [facility], were you homeless or living in a retirement (including now)? No 10/10/2024 Comments Unknown Sex [...] AM EDT [facility] [place] [facility] 112 [facility] 110 [place] [address] Renny Hansen MD 112 [facility] 110 [place] [address] documented as of this encounter Procedures Procedure [...] Benton Jr., D.O.10/16/2024 2:20 PM Dictation Location: [facility] Tech: Ghazal Barber Transcribed By: STAR 10/16/24 1420 Dictated By: Francisco J Benton Jr, DO 10/16/24 1343 Signed By: <Electronically signed by Francisco J Benton Jr, DO in OV> 10/16/24 1420 Narrative 10/16/2024 2:30 PM EST [facility] Main [place] [address] [place] [address] Ultrasound Report Signed Patient: Breann Starks MR#: [id number] : 1945 Acct:[id number] Age/Sex: 78 / F ADM Date: 10/16/24 Loc: [facility] Room: Type: REG CLI Attending Dr: Dmitriy Duque DO Ordering Provider: Dmitriy Duque DO Date of Service: 10/16/24 US/US axilla: R92.8 ([id number]) MM/MM diagnostic mammo BI w/CAD: ENLARGED LT [...] axilla Procedure Note Radiology, Radiologist, - 10/16/2024 [facility] Main [place] [address] [place] [address] Ultrasound Report Signed Patient: Breann Starks TMR#: [id number] : 8Acct:[id number] Age/Sex: 78 / FADM Date: 10/16/24 Loc: [facility] Room:Type: REG CLI Attending Dr: Dmitriy Duque DO Ordering Provider: Dmitriy Duque DO Date of Service: 10/16/24 US/US axilla: R92.8 ([id number]) MM/MM diagnostic mammo BI w/CAD: ENLARGED LT [...] Benton Jr., D.O.10/16/2024 2:20 PM Dictation Location: [facility] Tech: Ghazal Wilson; Kadi [...] documented as of this encounter Care Teams It Service Manager Relationship Specialty Start Date End Date Renny Hansen MD [address] [facility] 110 [place] [address] PCP - General Internal Medicine 09/19/24 Renny Hansen MD [address] [facility] 110 [place] [address] PCP - Medical [place] MA 09/12/2409/11 Cindi Jenkins, MAJOR CASE DETECTIVE [address] [place] [address] Cyber Defense Forensics Analyst Family Medicine 11/06/24 12/05/24 Lisa Ramirez LPN [address] [facility] 110 [place] [address] 12/05/24 documented as of this encounter
--- OUTSIDE RECORDS SUMMARY | 2025-05-02 12:47 | XMS_ITS | Encounter Summary ---
Author Organization [facility] Address [address] [place] [address] Care Team Providers Care Auto Service Dispatcher Name Role Phone Shaikh BEREKET Denis Primary Care Provider [phone] Jazmín Calvillo METAL WASHING MACHINE OPERATOR Unavailable [phone] Renny Hansen MD Primary Care Provider [phone] Renny Hansen MD Unavailable [phone] Cindi Jenkins SCIENCE SPECIALIST Unavailable [phone] Lisa Ramirez TWISTING FRAME CHANGER Unavailable Encounter Details Date Type Department Care Team (Late st Contact Info) Description 03/01/2024 Clinisync Result Encounter N[facility]S External Department Unsolicited Shaikh Denis MD [address] [place] [address] Social History Tobacco Use Types Packs/Day Years [...] week 08/30/2023 How often do you attend samaritan or pentecostal serv ices? Patient declined 08/30/2023 [...] Recorded Patient Health Questionnaire-2 Score 0 02/27/2024 [facility] of Occupat ional Health - [...] EDT Office Visit [facility] [place] 112 [facility] 110 [place] [address] Renny Hansen MD 112 [facility] 110 [place] [address] documented as of this encounter Procedures Procedure Name Priority Date/Time Associated Diagnosis Comments XR CHEST 2V 03/01/2024 9:53 AM EDT documented in this encounter Results * XR CHEST 2V (03/01/2024 9:53 AM EDT) Anatomical Region Laterality Modality Other 03/01/2024 9:53 AM EDT Narrative 03/01/2024 9:56 AM EDT The [address] [address] XRay Report Signed Patient: MAXIMUS STARKS MR#: [id number] : 1945 Acct:[id number] Age/Sex: 78 / F ADM Date: 02/29/24 Loc: CARD Attending Dr: Shaikh Cira Kilgore Ordering Physician: Shaikh Magui Denis Date of Service: 02/29/24 Procedure(s): XR chest 2V Accession Number(s): [id number] cc: Shaikh Magui Denis The [address] [address] Patient Name: MAXIMUS STARKS MRN: [id number] date: 1945 Sex: F Assigned Patient Location: CARD Current Patient Location: LAB Accession/Order Number: [id number] Exam Date: 02/29/2024 10:05 Report Date: 03/01/2024 [...] M.D. Signed By: 03/01/24 0956 DD/ TD/TT: Photography Instructor: Procedure Note Radiology, Radiologist, MD - 03/01/[address] [address] XRay Report Signed Patient: MAXIMUS STARKS TMR#: [id number] : 8Acct:[id number] Age/Sex: 78 / FADM Date: 02/29/24 Loc: CARD Attending Dr: Shaikh Cira Kilgore Ordering Physician: Shaikh Magui Denis Date of Service: 02/29/24 Procedure(s): XR chest 2V Accession Number(s): [id number] cc: Shaikh Magui Denis The [address] [address] Patient Name: MAXIMUS STARKS MRN: [id number] date: 1945 Sex: F Assigned Patient Location: CARD Current Patient Location: LAB Accession/Order Number: [id number] Exam Date: 02/29/2024 10:05 Report Date: 03/01/2024 [...] Mantilla M.D. Signed By:03/01/24 0956 DD/ TD/TT: Photography Instructor: us Shaikh Cira [facility] Final Result documented in this encounter Visit Diagnoses Not on filedocumented in this encounter Additional Health Concerns Assessment Noted Time PHQ-9 Depression Total Score: 1 09/06/20 23 2:00 PM EST documented as of this encounter Care Teams Auto Service Dispatcher Relationship Specialty Start Date End Date Shaikh Deins MD [address] [place] [address] PCP - General Internal Medicine 10/17/23 05/16/24 Renny Hansen MD [address] [facility] 110 [place] [address] PCP - General Internal Medicine 09/19/24 Renny Hansen MD [address] [facility] 110 [place] [address] PCP - Medical [facility] 09/12/2409/11 Jazmín Calvillo NP [address] [place] [address] Nurse Practitioner Family Medicine 05/17/24 09/18/24 Cindi Jenkins, GIDEON [address] [place] [address] Target Man Family Medicine 11/06/24 12/05/24 Lisa Ramirez LPN [address] [facility] 110 [place] [address] 12/05/24 documented as of this encounter
--- OUTSIDE RECORDS SUMMARY | 2025-05-02 12:47 | XMS_ITS | Encounter Summary ---
Author Organization [facility] Address [address] [place] [address] Care Team Providers Care Labor Conciliator Name Role Phone Renny Hansen MD Primary Care Provider [phone] Balta Cardenas DO Unavailable [phone] Reason for Visit * Reason Onset Date Comments Med Refill 04/26/2025 Encounter Details Date Type Department Care Team (Late st Contact Info) Description 04/26/2025 Refill [facility] Heart at [facility] [address] [place] [address] Roopa Mensah MA Benign hypertensive heart disease with heart failure (CMS/HCC) Social History Tobacco Use Types Packs/Day [...] Info) Description 05/15/2025 11:00 AM EDT Follow-Up [facility] Infectious Disease [address] [place] [address] Ortega Hines MD [address] [facility][Note 2]/[place] [address] documented as of this encounter Visit Diagnoses Diagnosis Benign hypertensive heart disease with heart failure (CMS/HCC) documented in this encounter Care Teams Labor Conciliator Relationship Specialty Start Date End Date Renny Hansen MD 112 [facility] [place] [facility] 110 [place] [address] PCP - General Internal Medicine 07/18/24 Balta Cardenas DO [address] [place] [address] Referring Physician 11/15/24 documented as of this encounter
--- OUTSIDE RECORDS SUMMARY | 2025-05-02 12:47 | XMS_ITS | Encounter Summary ---
Author Organization [facility] Address [address] [facility] [place] [address] Care Team Providers Care Electric Refrigerator Preparer Name Role Phone Renny Hansen MD Primary Care Provider [phone] Renny Hansen MD Unavailable [phone] GregoryCindi FLOORING SALES MANAGER Unavailable [phone] Lisa Ramierz JOB FOREMAN Unavailable Encounter Details Date Type Department Care Team (Late st Contact Info) Description 10/30/2024 Abstract [facility] [place] [facility] 112 [facility] 110 [place] [address] Renny Hansen MD 112 [facility] 110 [place] [address] Social History Tobacco Use Types Packs/Day Years [...] How often do you attend congregational or yazidi serv ices? Patient declined 10/10/2024 Do you [...] Recorded Patient Health Questionnaire-2 Score 0 10/17/2024 [facility] of Occupat [...] living in a longterm (including now)? No 10/10/2024 Comments Unknown Sex [...] EDT Office Visit [facility] [place]ende[place] 112 [facility] 110 [place] [address] Renny Hansen MD 112 [facility] [address] [place] [address] documented as of this encounter Visit Diagnoses Not on filedocumented in this encounter Additional Health Concerns Assessment Noted Time PHQ-9 Depression Total Score: 1 09/06/20 23 2:00 PM EST documented as of this encounter Care Teams Electric Refrigerator Preparer Relationship Specialty Start Date End Date Renny Hansen MD [address] [facility] 110 [place] [address] PCP - General Internal Medicine 09/19/24 Renny Hansen MD [address] [facility] 110 [place] [address] PCP - Medical [place] MA 09/12/2409/11 Cindi Jenkins, GIDEON [address] [place] [address] Insurance Application Investigator Family Medicine 11/06/24 12/05/24 Lisa Ramirez LPN [address] [facility] 110 [place] [address] 12/05/24 documented as of this encounter
--- OUTSIDE RECORDS SUMMARY | 2025-05-02 12:47 | XMS_ITS | Clinical Summary ---
Author Organization [facility] Address [address] [place] [address] Care Team Providers Care Tank Driver Name Role Phone Paulette Johnson MD Primary Care Provider [phone] Scott Cruz MD Unavailable Allergies Active Allergy [...] Completed 08/25/2023 Insurance [employer] MEDICARE Care Teams Tank Driver Relationship Specialty Start Date End Date Paulette Johnson MD [address] [place] [address] PCP - General 01/05/06 Scott Cruz MD [address] [address] Referring Infectious Diseases 05/07/24
--- OUTSIDE RECORDS SUMMARY | 2025-05-02 12:47 | XMS_ITS | Encounter Summary ---
Author Organization [facility] Address [address] [facility] [place] [address] Care Team Providers Care Public Service Representative Name Role Phone Renny Hansen MD Primary Care Provider [phone] Renny Hansen MD Unavailable [phone] Lisa Ramirez LPN Unavailable Encounter Details Date Type Department Care Team (Late st Contact Info) Description 01/04/2025 Abstract [facility] [place] [facility] 112 [facility] 110 [place] [address] Renny Hansen MD 112 [facility] 110 [place] [address] Social History Tobacco Use Types Packs/Day Years [...] How often do you attend chur or oriental orthodox services? Patient declined 11/12/2024 Do you belong to any clubs o r organizations such as pentecostal groups, unions, fraternal or athletic groups, or [...] Recorded Patient Health Questionnaire-2 Score 0 10/17/2024 [facility] of Occupat ional Health - [...] any time in the past 12 m [facility], were you homeless or living in a chcf (including now)? No 11/12/2024 Comments Unknown Sex [...] [address] [place] [address] [place] [address] Renny Hansen MD [address] [place] [address] documented as of this encounter Visit Diagnoses Not on filedocumented in this encounter Additional Health Concerns Assessment Noted Time PHQ-9 Depression Total Score: 1 09/06/20 23 2:00 PM EST documented as of this encounter Care Teams Public Service Representative Relationship Specialty Start Date End Date Renny Hansen MD [address] [facility] 110 [place] [address] PCP - General Internal Medicine 09/19/24 Renny Hansen MD [address] [facility] 110 [place] [address] PCP - Medical [facility] 09/12/2409/11 Lisa Ramirez LPN [address] [address] 12/05/24 documented as of this encounter
--- OUTSIDE RECORDS SUMMARY | 2025-05-02 12:47 | XMS_ITS | Encounter Summary ---
Author Organization [facility] Address [address] [place] [address] Care Team Providers Care Pediatric Care Coordinator Name Role Phone Shaikh BEREKET Denis Primary Care Provider [phone] Jazmín Calvillo RACING BOARD MARKER Unavailable [phone] Renny Hansen MD Primary Care Provider [phone] Renny Hansen MD Unavailable [phone] Cindi Jenkins CHIEF CLIENT OFFICER Unavailable [phone] Lisa Ramirez QUALITY CONTROL TECHNICIAN Unavailable Encounter Details Date Type Department Care Team (Late st Contact Info) Description 11/10/2023 Orders Only [facility] [address] [place] [address] Shaikh Denis MD [address] [place] [address] Social History Tobacco Use Types [...] How often do you attend orthodoxy or christianity serv ices? Patient declined 08/30/2023 Do you belong to any clubs o r organizations such as orthodoxy groups, unions, fraHotelTonight or athletic groups, or school groups? Yes [...] Recorded Patient Health Questionnaire-2 Score 0 11/07/2023 [facility] of Occupat ional Health - [...] Office Visit [facility]S [place] Zendejas [address] [facility] 110 [place] [address] Renny Hansen MD [address] [place] [address] [facility] 110 [place] [address] documented as of this encounter Visit Diagnoses Not on filedocumented in this encounter Additional Health Concerns Assessment Noted Time PHQ-9 Depression Total Score: 1 09/06/20 23 2:00 PM EST documented as of this encounter Care Teams Pediatric Care Coordinator Relationship Specialty Start Date End Date Shaikh Denis MD [address] [place] [address] PCP - General Internal Medicine 10/17/23 05/16/24 Renny Hansen MD [address] [place] [address] [address] PCP - General Internal Medicine 09/19/24 Renny Hansen MD [address] [place] [address] [address] PCP - Medical [facility] 09/12/2409/11 Jazmín Calvillo NP [address] [place] [address] Nurse Practitioner Family Medicine 05/17/24 09/18/24 Cindi Jenkins, GIDEON [address] [place] [address] Sap Bw Architect Family Medicine 11/06/24 12/05/24 Lisa Ramirez LPN [address] [place] [address] [address] 12/05/24 documented as of this encounter
--- OUTSIDE RECORDS SUMMARY | 2025-05-02 12:47 | XMS_ITS | Encounter Summary ---
Author Organization [facility] Address [address] [facility] [place] [address] Care Team Providers Care Laboratory Director Name Role Phone Shaikh BEREKET Denis Primary Care Provider [phone] Jazmín Calvillo GUEST EXPERIENCE REPRESENTATIVE Unavailable [phone] Renny Hansen MD Primary Care Provider [phone] Renny Hansen MD Unavailable [phone] Cindi Jenkins JUNK REMOVAL SPECIALIST Unavailable [phone] Lisa Ramirez COMPOUND WORKER Unavailable Encounter Details Date Type Department [...] week 08/30/2023 How often do you attend faith or jew serv ices? Patient declined 08/30/2023 Do you belong to any clubs o r organizations such as faith groups, unions, fraternal or athletic groups, or [...] Recorded Patient Health Questionnaire-2 Score 0 11/07/2023 [facility] of Occupat ional Health - [...] 11:00 AM EDT Office Visit [facility] [place] 112 [facility] 110 [place] [address] Renny Hansen MD 112 [facility] 110 [place] [address] documented as of this encounter Procedures Procedure Name Priority Date/Time Associated Diagnosis Comments XR DEXA AXIAL SKELETON 12/12/2023 1:46 PM EDT documented in this encounter Results * XR DEXA AXIAL SKELETON (12/12/2023 1:46 PM EDT) Anatomical Region Laterality Modality Other 12/12/2023 1:46 PM EDT Narrative 12/12/2023 1:48 PM EDT The [address] [address] XRay Report Signed Patient: MAXIMUS STARKS MR#: [id number] : 1945 Acct:[id number] Age/Sex: 78 / F ADM Date: 12/12/23 Loc: RAD Attending Dr: Renée Barry NP Ordering Physician: Renée Barry NP Date of Service: 12/12/23 Procedure(s): XR DEXA axial skeleton Accession Number(s): [id number] cc: Shaikh Magui Denis; Renée Barry NP The [place] [address] Patient Name: MAXIMUS STARKS MRN: [id number] date: 1945 Sex: F Assigned Patient Location: RAD Current Patient Location: [facility] Accession/Order Number: [id number] Exam Date: 12/12/2023 12:57 Report Date: 12/12/2023 [...] Signed By: 12/12/23 1348 DD/ 1346 TD/TT: Analyst Market Intelligence: Procedure Note Radiology, Radiologist, MD - 12/15/2023 [place] [address] XRay Report Signed Patient: MAXIMUS STARKS TMR#: [id number] : 8Acct:[id number] Age/Sex: 78 / FADM Date: 12/12/23 Loc: RAD Attending Dr: Renée Barry GUEST EXPERIENCE REPRESENTATIVE Ordering Physician: Renée Barry NP Date of Service: 12/12/23 Procedure(s): XR DEXA axial skeleton Accession Number(s): [id number] cc: Shaikh Magui Denis; Renée Barry NP [place] [id number] Patient Name: MAXIMUS STARKS MRN: [id number] date: 1945 Sex: F Assigned Patient Location: RAD Current Patient Location: RAD Accession/Order Number: [id number] Exam Date: 12/12/2023 12:57 Report Date: 12/12/2023 [...] M.D. Signed By:12/12/23 1348 DD/ 1346 TD/TT: Analyst Market Intelligence: us Generic External Data Provider [facility] Final Result documented in this encounter Visit Diagnoses Not on filedocumented in this encounter Additional Health Concerns Assessment Noted Time PHQ-9 Depression Total Score: 1 09/06/20 23 2:00 PM EST documented as of this encounter Care Teams Laboratory Director Relationship Specialty Start Date End Date Shaikh Denis MD [address] [place] [address] PCP - General Internal Medicine 10/17/23 05/16/24 Renny Hansen MD [address] [facility] 110 [place] [address] PCP - General Internal Medicine 09/19/24 Renny Hansen MD [address] [facility] 110 [place] [address] PCP - Medical [facility] 09/12/2409/11 Jazmín Calvillo NP [address] [place] [address] Nurse Practitioner Family Medicine 05/17/24 09/18/24 Cindi Jenkins, GIDEON [address] [place] [address] Junk Removal Specialist Family Medicine 11/06/24 12/05/24 Lisa Ramirez LPN [address] [address] 12/05/24 documented as of this encounter
--- OUTSIDE RECORDS SUMMARY | 2025-05-02 12:47 | XMS_ITS | Encounter Summary ---
Author Organization [facility] Address [address] [place] [address] Care Team Providers Care Lock Setter Name Role Phone Shaikh BEREKET Denis Primary Care Provider [phone] Jazmín Calvillo COMPENSATION ANALYST Unavailable [phone] Renny Hansen MD Primary Care Provider [phone] Renny Hansen MD Unavailable [phone] Cindi Jenkins CLOTHING PATTERNMAKER Unavailable [phone] Lisa Ramirez ASSISTANT MEN'S SOCCER COACH Unavailable Encounter Details Date Type Department Care Team (Late st Contact Info) Description 12/12/2023 Orders Only [facility] [address] [place] [address] Kayley Reeder, LOG HANDLING EQUIPMENT OPERATOR-AIRFREIGHT OPERATIONS AGENT [address] [facility] [place], [place] [address] Social History Tobacco Use Types Packs/Day Years [...] How often do you attend jain or taoism serv ices? Patient declined 08/30/2023 [...] care home (including now)? Patient refused 08/30/2023 Comments [...] AM EDT [facility] [place] [facility] 110 [place] [address] Renny Hansen MD 112 [facility] 110 [place] [address] documented as of this encounter Procedures Procedure Name Priority Date/Time Associated Diagnosis Comments XR DEXA AXIAL SKELETON* Routine 12/12/2023 2:05 PM EDT documented in this encounter Results * XR DEXA AXIAL SKELETON* (12/12/2023 2:05 PM EDT) Anatomical Region Laterality Modality Radiographic Jayashree ging Kayley Reeder LOG HANDLING EQUIPMENT OPERATOR-AIRFREIGHT OPERATIONS AGENT IMG XR PROCEDURES Summer l Result documented in this encounter Visit Diagnoses Not on filedocumented in this encounter Additional Health Concerns Assessment Noted Time PHQ-9 Depression Total Score: 1 09/06/20 23 2:00 PM EST documented as of this encounter Care Teams Lock Setter Relationship Specialty Start Date End Date Shaikh Denis MD [address] [place] [address] PCP - General Internal Medicine 10/17/23 05/16/24 Renny Hansen MD [address] [facility] 110 [place] [address] PCP - General Internal Medicine 09/19/24 Renny Hansen MD [address] [facility] 110 [place] [address] PCP - Medical [facility] 09/12/2409/11 Jazmín Calvillo NP [address] [place] [address] Nurse Practitioner Family Medicine 05/17/24 09/18/24 Cindi Jenkins, GIDEON [address] [place] [address] Energy Conservation Representative Family Medicine 11/06/24 12/05/24 Lisa Ramirez LPN [address] [facility] 110 [place] [address] 12/05/24 documented as of this encounter
--- OUTSIDE RECORDS SUMMARY | 2025-05-02 12:47 | XMS_ITS | Encounter Summary ---
Author Organization [facility] Address [address] [place] [address] Care Team Providers Care Cleaning And Washing Equipment Operator Name Role Phone Shaikh BEREKET Denis Primary Care Provider [phone] Jazmín Calvillo BELT TURNER Unavailable [phone] Renny Hansen MD Primary Care Provider [phone] Renny Hansen MD Unavailable [phone] Cindi Jenkins EC TEACHER Unavailable [phone] Lisa Ramirez APPRENTICE PAINTER NECKTIES Unavailable Encounter Details Date Type Department Care Team (Late st Contact Info) Description 11/14/2023 Orders Only [facility] [address] [place] [address] Shaikh Denis MD [address] [place] [address] Social History Tobacco Use Types [...] How often do you attend hinduism or mandaeism serv ices? Patient declined 08/30/2023 Do you belong to any clubs o r organizations such as hinduism groups, unions, fraSettle or athletic groups, or school groups? Yes [...] EDT Office Visit [facility] Maximino Zendejas [address] [facility] 110 [place] [address] Renny Hansen MD [address] [facility] 110 [place] [address] documented as of this encounter Procedures Procedure [...] documented as of this encounter Care Teams Cleaning And Washing Equipment Operator Relationship Specialty Start Date End Date Shaikh Denis MD [address] [place] [address] PCP - General Internal Medicine 10/17/23 05/16/24 Renny Hansen MD [address] [facility] 110 [place] [address] PCP - General Internal Medicine 09/19/24 Renny Hansen MD [address] [facility] 110 [place] [address] PCP - Medical [facility] 09/12/2409/11 Jazmín Calvillo NP [address] [place] [address] Nurse Practitioner Family Medicine 05/17/24 09/18/24 Cindi Jenkins, GIDEON [address] [place] [address] Oil Pump Station Operator Chief Family Medicine 11/06/24 12/05/24 Lisa Ramirez LPN [address] [facility] 110 [place] [address] 12/05/24 documented as of this encounter
--- OUTSIDE RECORDS SUMMARY | 2025-05-02 12:47 | XMS_ITS | Encounter Summary ---
Author Organization [facility] Address [address] [place] [address] Care Team Providers Care Woolen Tester Name Role Phone Shaikh BEREKET Denis Primary Care Provider [phone] Shaikh BEREKET Denis Primary Care Provider [phone] Jazmín Calvillo CHILD ADOLESCENT PSYCHIATRIST Unavailable [phone] Renny Hansen MD Primary Care Provider [phone] Renny Hansen MD Unavailable [phone] Cindi Jenkins SPECIAL DELIVERY CLERK Unavailable [phone] Lisa Ramirez RISK ASSESSOR Unavailable Encounter Details Date Type Department Care Team (Late st Contact Info) Description 09/07/2023 Abstract [facility] [address] [place] [address] Shaikh Denis MD [address] [place] [address] Social History Tobacco Use Types Packs/Day Years [...] week 08/30/2023 How often do you attend mormonism or adventism serv ices? Patient declined 08/30/2023 [...] Recorded Patient Health Questionnaire-2 Score 0 09/06/2023 [facility] of Occupat ional Health - Occupational Stress [...] Office Visit CANDIDO Zendejas [address] [facility] 110 [place] [address] Renny Hansen MD 112 [facility] 110 [place] [address] documented as of this encounter Visit Diagnoses Not on filedocumented in this encounter Additional Health Concerns Assessment Noted Time PHQ-9 Depression Total Score: 1 09/06/20 23 2:00 PM EST documented as of this encounter Care Teams Woolen Tester Relationship Specialty Start Date End Date Shaikh Denis MD PCP - General Internal Medicine 04/05/23 10/16/23 Shaikh Denis MD [address] [place] [address] PCP - General Internal Medicine 10/17/23 05/16/24 Renny Hansen MD [address] [address] PCP - General Internal Medicine 09/19/24 Renny Hansen MD [address] [place] [address] PCP - Medical [facility] 09/12/2409/11 Jazmín Calvillo NP [address] [place] [address] Nurse Practitioner Family Medicine 05/17/24 09/18/24 Cindi Jenkins, GIDEON [address] [place] [address] Nurse Researcher Family Medicine 11/06/24 12/05/24 Lisa Ramirez LPN [address] [address] 12/05/24 documented as of this encounter
--- OUTSIDE RECORDS SUMMARY | 2025-05-02 12:47 | XMS_ITS | Encounter Summary ---
Author Organization [facility] Address [address] [place] [address] Care Team Providers Care Switchboard Operator Receptionist Name Role Phone Shaikh BEREKET Denis Primary Care Provider [phone] Shaikh BEREKET Denis Primary Care Provider [phone] Jazmín Calvillo DENTAL LABORATORY WORKER Unavailable [phone] Renny Hansen MD Primary Care Provider [phone] Renny Hansen MD Unavailable [phone] Cindi Jenkins MAJOR ASSEMBLER Unavailable [phone] Lisa Ramirez ROPE SILICA MACHINE OPERATOR Unavailable Reason for Visit * Reason Comments Med Refill Encounter Details Date Type Department Care Team (Late st Contact Info) Description 10/13/2023 Refill [facility] [address] [place] [address] Shaikh Denis MD [address] [place] [address] Peptic ulcer, site unspecified, unspecified [...] How often do you attend temple or restorationist serv ices? Patient declined 08/30/2023 Do you [...] Recorded Patient Health Questionnaire-2 Score 0 09/06/2023 [facility] [place] of Occupat ional Health - Occupational Stress [...] 11:00 AM EDT Office Visit [facility] [place] [facility] [address] [facility] 110 [place] [address] Renny Hansen MD [address] [facility] 110 [place] [address] documented as of this encounter Visit Diagnoses [...] documented as of this encounter Care Teams Switchboard Operator Receptionist Relationship Specialty Start Date End Date Shaikh Denis MD PCP - General Internal Medicine 04/05/23 10/16/23 Shaikh Denis MD [address] [place] [place] [address] PCP - General Internal Medicine 10/17/23 05/16/24 Renny Hansen MD [address] [facility] 110 [place] [address] PCP - General Internal Medicine 09/19/24 Renny Hansen MD [address] [facility] 110 [place] [address] PCP - Medical [facility] 09/12/2409/11 Jazmín Calvillo NP [address] [place] [address] Nurse Practitioner Family Medicine 05/17/24 09/18/24 Cindi Jenkins, GIDEON [address] [facility] [place] [address] Photographer Scientific Family Medicine 11/06/24 12/05/24 Lisa Ramirez LPN [address] [address] 12/05/24 documented as of this encounter
--- OUTSIDE RECORDS SUMMARY | 2025-05-02 12:47 | XMS_ITS | Encounter Summary ---
Author Organization [facility] Address [address] [place] [address] Care Team Providers Care Weight Analyst Name Role Phone Renny Hansen MD Primary Care Provider [phone] Renny Hansen MD Unavailable [phone] Lisa Ramirez LPN Unavailable Encounter Details Date Type Department Care Team (Late st Contact Info) Description 01/03/2025 External Result Encounter [facility] External Department Unsolicited Juan Monahan, DO [address] [place] [address] Social History Tobacco Use Types Packs/Day Years [...] How often do you attend chur or confucianism services? Patient declined 11/12/2024 Do [...] Patient Health Questionnaire-2 Score 0 10/17/2024 [facility] of Occupat ional [...] any time in the past 12 m [facility], were you homeless or living in a alf (including now)? No 11/12/2024 Comments Unknown Sex [...] Office Visit [facility] [place] Zendejas 112 [facility] 110 [place] [address] Renny Hansen MD [address] [facility] 110 [place] [address] documented as of this encounter Procedures Procedure [...] Dimitrios Blanco M.D.01/03/2025 3:42 PM Dictation Location: [facility] Tech: Ghazal Wilson Transcribed By: STAR 01/03/25 1542 Dictated By: Dimitrios Blanco MD 01/03/25 1532 Signed By: <Electronically signed by Dimitrios Blanco MD in OV> 01/03/25 1542 Narrative 01/03/2025 3:44 PM EDT [facility] [place] [address] Ultrasound Report Signed Patient: Breann Starks MR#: [id number] : 1945 Acct:[id number] Age/Sex: 79 / F ADM Date: 01/03/25 Loc: Room: Type: [facility] RCR Attending Dr: Katharina Toledo APRN [...] axilla Procedure Note Radiology, Radiologist, - 01/03/[address] [facility] Main [place] [address] [place] [address] Ultrasound Report Signed Patient: Breann Starks TMR#: [id number] : 8Acct:[id number] Age/Sex: 79 / FADM Date: 01/03/25 Loc: XT Room:Type: [facility] Attending Dr: Katharina Toledo APRN Ordering [...] Dimitrios Blanco M.D.01/03/2025 3:42 PM Dictation Location: [facility] Tech: Ghazal Wilson Transcribed [...] documented as of this encounter Care Teams Weight Analyst Relationship Specialty Start Date End Date Renny Hansen MD [address] [place] 110 [place] [address] PCP - General Internal Medicine 09/19/24 Renny Hansen MD [address] [place] [address] [place] [address] PCP - Medical [facility] 09/12/2409/11 Lisa Ramirez LPN [address] [place] [address] [place] [address] 12/05/24 documented as of this encounter
--- OUTSIDE RECORDS SUMMARY | 2025-05-02 12:47 | XMS_ITS | Encounter Summary ---
Author Organization [facility] Address [address] [place] [address] Care Team Providers Care Green Chain Puller Name Role Phone Shaikh BEREKET Denis Primary Care Provider [phone] Jazmín Calvillo PRODUCTION MACHINE COMPUTER OPERATOR Unavailable [phone] Renny Hansen MD Primary Care Provider [phone] Renny Hansen MD Unavailable [phone] Cindi Jenkins POST DOCTORAL RESEARCHER Unavailable [phone] Lisa Ramirez ETL APPLICATION DEVELOPER Unavailable Encounter Details Date Type Department Care Team (Late st Contact Info) Description 03/02/2024 Clinisync Result Encounter [facility] External Department Unsolicited Shaikh Denis MD [address] [place] [address] Social History Tobacco Use Types Packs/Day Years [...] How often do you attend confucianism or shinto serv ices? Patient declined 08/30/2023 Do you [...] Recorded Patient Health Questionnaire-2 Score 0 02/27/2024 [facility] of Occupat ional Health [...] [place] Zendejas 112 [facility] 110 [place] [address] Renny Hansen MD 112 [facility] 110 [place] [address] documented as of this encounter Procedures Procedure Name Priority Date/Time Associated Diagnosis Comments CA ECHO DOPPLER COMPLETE 03/02/2024 9:05 AM EDT documented in this encounter Results * CA ECHO DOPPLER COMPLETE (03/02/2024 9:05 AM EDT) Anatomical Region Laterality Modality Other 03/02/2024 9:05 AM EDT Narrative 03/02/2024 9:06 AM EDT The [address] [address] Cardiology Report Signed Patient: MAXIMUS STARKS MR#: [id number] : 1945 Acct:[id number] Age/Sex: 78 / F ADM Date: 02/29/24 Loc: CARD Attending Dr: Shaikh Cira Kilgore Ordering Physician: Shaikh Magui Denis Date of Service: 02/29/24 Procedure(s): CA echo doppler complete Accession Number(s): [id number] cc: Shaikh Magui Denis Patient Name: MAXIMUS STARKS MR#: [id number] : 1945 Exam Date: 02/29/2024 Ordering Doctor: [...] SALAZAR Signed By: 03/02/24905 DD/ 4 TD/TT: Contract Technician: Procedure Note Radiology, Radiologist, MD - 03/02/2024 [place] [address] Cardiology Report Signed Patient: MAXIMUS STARKS TMR#: [id number] : 8Acct:[id number] Age/Sex: 78 / FADM Date: 02/29/24 Loc: CARD Attending Dr: Shaikh Cira Kilgore Ordering Physician: Shaikh Magui Denis Date of Service: 02/29/24 Procedure(s): CA echo doppler complete Accession Number(s): [id number] cc: Shaikh Magui Denis Patient Name: MAXIMUS STARKS MR#: [id number] : 1945 Exam Date: 02/29/2024 Ordering Doctor: [...] SAKINA SALAZAR Signed By:03/02/24905 DD/ 4 TD/TT: Contract Technician: us Shaikh Cira [facility] Final Result documented in this encounter Visit Diagnoses Not on filedocumented in this encounter Additional Health Concerns Assessment Noted Time PHQ-9 Depression Total Score: 1 09/06/20 23 2:00 PM EST documented as of this encounter Care Teams Green Chain Puller Relationship Specialty Start Date End Date Shaikh Denis MD [address] [place] [address] PCP - General Internal Medicine 10/17/23 05/16/24 Renny Hansen MD [address] [facility] 110 [place] [address] PCP - General Internal Medicine 09/19/24 Renny Hansen MD [address] [facility] 110 [place] [address] PCP - Medical [facility] 09/12/2409/11 Jazmín Calvillo NP [address] [place] [address] Nurse Practitioner Family Medicine 05/17/24 09/18/24 Cindi Jenkins, GIDEON [address] [place] [address] Agency Development Manager Family Medicine 11/06/24 12/05/24 Lisa Ramirez LPN [address] [facility] 110 [place] [address] 12/05/24 documented as of this encounter
--- OUTSIDE RECORDS SUMMARY | 2025-05-02 12:48 | XMS_ITS | Encounter Summary ---
Author Organization [facility] Address [address] [facility] [place] [address] Care Team Providers Care Index Clerk Name Role Phone Renny Hansen MD Primary Care Provider [phone] Renny Hansen MD Unavailable [phone] Cindi Jenkins STUDENT LIAISON OFFICER Unavailable [phone] Lisa Ramirez SPAR CAP BEVELER Unavailable Encounter Details Date Type Department Care Team (Late st Contact Info) Description 10/03/2024 Orders Only [facility] [place] [facility] [address] [place] [address] [place] [address] Carlene Yan LPN [address] [place] [address] Nausea Social History Tobacco Use Types Packs/Day [...] How often do you attend rastafari or jain serv ices? Patient declined 08/30/2023 Do you belong to any clubs o r organizations such as rastafari groups, unions, fraternal or athletic groups, or [...] Recorded Patient Health Questionnaire-2 Score 0 05/31/2024 [facility] of Occupat ional Health [...] Visit [facility] [place] Zendejas [address] [facility] 110 [place] [address] Renny Hansen MD [address] [facility] 110 [place] [address] documented as of this encounter Visit Diagnoses Diagnosis Nausea Nausea alone documented in this encounter Additional Health Concerns Assessment Noted Time PHQ-9 Depression Total Score: 1 09/06/20 23 2:00 PM EST documented as of this encounter Care Teams Index Clerk Relationship Specialty Start Date End Date Renny Hansen MD [address] [facility] [address] [place] [address] PCP - General Internal Medicine 09/19/24 Renny Hansen MD [address] [facility] 110 [place] [address] PCP - Medical [place] 09/12/2409/11 Cindi Jenkins, STUDENT LIAISON OFFICER [address] [place] [address] Poultry Hatchery Supervisor Family Medicine 11/06/24 12/05/24 Lisa Ramirez LPN 112 [facility] 110 [place] [address] 12/05/24 documented as of this encounter
--- OUTSIDE RECORDS SUMMARY | 2025-05-02 12:48 | XMS_ITS | Encounter Summary ---
Author Organization [facility] Address [address] [place] [address] Care Team Providers Care Mineral Surveying Technician Name Role Phone Renny Hansen MD Primary Care Provider [phone] Renny Hansen MD Unavailable [phone] Lisa Ramirez LPN Unavailable Encounter Details [...] Recorded Patient Health Questionnaire-2 Score 0 04/18/2025 [facility] - Occupational Stress Questionnaire [...] any time in the past 12 m [facility], were you homeless or living in [...] AM EDT Office Visit [facility] [place] [facility] [address] [place] [address] [place] [address] Renny Hansen MD [address] [facility] 110 [place] [address] documented as of this encounter Visit Diagnoses Not on filedocumented in this encounter Additional Health Concerns Assessment Noted Time PHQ-9 Depression Total Score: 1 09/06/20 23 2:00 PM EST documented as of this encounter Care Teams Mineral Surveying Technician Relationship Specialty Start Date End Date Renny Hansen MD [address] [facility] 110 [place] [address] PCP - General Internal Medicine 09/19/24 Renny Hansen MD [address] [facility] 110 [place] [address] PCP - Medical [facility] 09/12/2409/11 Lisa Ramirez LPN [address] [facility] 110 [place] [address] 12/05/24 documented as of this encounter
--- OUTSIDE RECORDS SUMMARY | 2025-05-02 12:48 | XMS_ITS | Encounter Summary ---
Author Organization [facility] Address [address] [facility] [place] [address] Care Team Providers Care Forensic Psychiatrist Name Role Phone Jazmín Calvillo INGOT CAR OPERATOR Unavailable [phone] Renny Hansen MD Primary Care Provider [phone] Renny Hansen MD Unavailable [phone] Cindi Jenkins CLINICAL RESOURCE DIRECTOR Unavailable [phone] Lisa Ramirez SENIOR ENVIRONMENTAL PRACTICE LEADER Unavailable Encounter Details Date Type Department Care Team (Late st Contact Info) Description 08/27/2024 Abstract CANDIDO [place] [facility] [address] [address] [place] [address] Unallocated, Candido Provider, [address] [place], [place] [address] Social History Tobacco Use Types Packs/Day Years [...] How often do you attend presybeterian or nondenominational serv ices? Patient declined 08/30/2023 [...] Recorded Patient Health Questionnaire-2 Score 0 05/31/2024 [facility] of Occupat ional Health - Occupational [...] [facility] [place] Zendejas [address] [facility] 110 [place] [address] Renny Hansen MD [address] [facility] 110 [place] [address] documented as of this encounter Visit Diagnoses Not on filedocumented in this encounter Additional Health Concerns Assessment Noted Time PHQ-9 Depression Total Score: 1 09/06/20 23 2:00 PM EST documented as of this encounter Care Teams Forensic Psychiatrist Relationship Specialty Start Date End Date Renny Hansen MD [address] [facility] 110 [place] [address] PCP - General Internal Medicine 09/19/24 Renny Hansen MD [address] [facility] 110 [place] [address] PCP - Medical [place] 09/12/2409/11 Jazmín Calvillo NP Nurse Practitioner Family Medicine 05/17/24 09/18/24 Cindi Jenkins, CLINICAL RESOURCE DIRECTOR [address] [place], [place] [address] Stamp Pad Maker Family Medicine 11/06/24 12/05/24 Lisa Ramirez LPN [address] [facility] 110 [place] [address] 12/05/24 documented as of this encounter
--- OUTSIDE RECORDS SUMMARY | 2025-05-02 12:48 | XMS_ITS | Encounter Summary ---
Author Organization [facility] Address [address] [place] [address] Care Team Providers Care Regulatory Leader Name Role Phone Renny Hansen MD Primary Care Provider [phone] Renny Hansen MD Unavailable [phone] Cindi Jenkins CARE CONSULTANT Unavailable [phone] Lisa Ramirez SYSTEMS QA ANALYST Unavailable Encounter Details Date Type Department Care Team (Late st Contact Info) Description 10/02/2024 External Result Encounter NOMS External Department Unsolicited Katharina Toledo, SEMI AUTOMATIC SEWING MACHINE OPERATOR [address] [place] [address] Social History Tobacco Use Types Packs/Day Years [...] week 08/30/2023 How often do you attend protestant or mandaen serv ices? Patient declined 08/30/2023 Do you [...] EDT Office Visit N[facility]S [place] Zendejas 112 [facility] 110 [place] [address] Renny Hansen MD 112 [facility] 110 [place] [address] documented as of this encounter Procedures Procedure [...] Etienne Rhodes M.D.10/02/2024 4:14 PM Dictation Location: [facility]23 Transcribed By: [facility] 10/02/241613 Dictated By: Etienne Rhodes DO 10/02/24 161 Signed By: <Electronically signed by Etienne Rhodes DO in OV> 10/02/24 1614 Narrative 10/02/2024 4:17 PM [facility] [place] [address] CT Scan Report Signed Patient: Breann Starks MR#: [id number] : 1945 Acct:[id number] Age/Sex: 78 / F ADM Date: 10/02/24 Loc: XT Room: Type: REG RCR Attending Dr: Katharina Toledo CLIENT SERVICE EXECUTIVE Copies to: Katharina Toledo APRN Ordering Provider: [...] Procedure Note Radiology, Radiologist, MD - 10/02/2024 [facility] Main [place] [id number] CT Scan Report Signed Patient: Breann Starks TMR#: [id number] : 8Acct:[id number] Age/Sex: 78 / FADM Date: 10/02/24 Loc: XT Room:Type: REG RCR Attending Dr: Katharina Toledo CLIENT SERVICE EXECUTIVE Copies to: Katharina Toledo APRN Ordering Provider: [...] Etienne Rhodes M.D.10/02/2024 4:14 PM Dictation Location: [place] [address] Transcribed By: [facility] 10/02/24 1614 Dictated By: Etienne Rhoeds DO 10/02/24 1610 Signed By: <Electronically signed by Etienne Rhodes DO in OV> 10/02/24 1614 us Katharina Toledo SEMI AUTOMATIC SEWING MACHINE OPERATOR IMG CT PROCEDURES Final Resul t documented in this encounter Visit Diagnoses Not on filedocumented in this encounter Additional Health Concerns Assessment Noted Time PHQ-9 Depression Total Score: 1 09/06/20 23 2:00 PM EST documented as of this encounter Care Teams Regulatory Leader Relationship Specialty Start Date End Date Renny Hansen MD [address] [facility] 110 [place] [address] PCP - General Internal Medicine 09/19/24 Renny Hansen MD [address] [facility] 110 [place] [address] PCP - Medical [place] 09/12/2409/11 Cindi Jenkins, GIDEON [address] [place] [address] Social Human Services Assistants Family Medicine 11/06/24 12/05/24 Lisa Ramirez LPN 112 [facility] 110 [place] [address] 12/05/24 documented as of this encounter
--- OUTSIDE RECORDS SUMMARY | 2025-05-02 12:48 | XMS_ITS | Encounter Summary ---
Author Organization [facility] Address [address] [place] [address] Care Team Providers Care All Round Logger Name Role Phone Jazmín Calvillo NP Unavailable Renny Hansen MD Primary Care Provider [phone] Renny Hansen MD Unavailable [phone] Cindi Jenkins ACUPRESSURIST Unavailable [phone] Lisa Ramirez ASSOCIATE DIRECTOR OF BIOSTATISTICS Unavailable Encounter Details Date Type Department Care [...] How often do you attend jewish or restoration serv ices? Patient declined 08/30/2023 [...] Recorded Patient Health Questionnaire-2 Score 0 05/31/2024 [facility] - [...] EDT Office Visit [facility] Maximino Zendejas 112 [facility] 110 [place] [address] Renny Hansen MD 112 [facility] 110 [place] [address] documented as of this encounter Procedures Procedure Name Priority Date/Time Associated Diagnosis Comments CT CERVICAL SPINE W IV CONTRAST 06/28/2024 8:43 AM EDT documented in this encounter Results * CT cervical spine w IV contrast (06/28/2024 8:43 AM EDT) Anatomical Region Laterality Modality Spine, C-spine Computed Tomogra phy 06/28/2024 8:43 AM EDT Narrative 06/28/2024 8:45 AM EDT The [address] [address] [address] Scan Report Signed Patient: BREANN STARKS MR#: [id number] : 1945 Acct:[id number] Age/Sex: 78 / F ADM Date: 06/26/24 Loc: CT Attending Dr: VangieStaff Physician [place] Ordering Physician: Channing Devlin M.D. Date of Service: 06/26/24 Procedure(s): CT cervical spine w con Accession Number(s): [id number] cc: RENNY HANSEN [place] [address] Patient Name: BREANN STARKS MRN: [facility]:[id number] date: 1945 Sex: F Assigned Patient Location: CT Current Patient Location: Accession/Order Number: [id number] Exam Date: 06/26/2024 14:58 Report Date: 06/28/2024 [...] due to patient body habitus and poor bqtcti-ve-osbwo ratio BONES: Reversal of normal cervical lordosis. [...] Alston M.D. Signed By: 06/28/2445 DD/ TD/TT: Cage Fighter: Procedure Note Radiology, Radiologist, - 06/28/[address] [place] [id number] Scan Report Signed Patient: BREANN STARKS TMR#: [id number] : 1945cct:[id number] Age/Sex: 78 / FADM Date: 06/26/24 Loc: CT Attending Dr: Non-Staff Physician Magui Ordering Physician: Channing Devlin M.D. Date of Service: 06/26/24 Procedure(s): CT cervical spine w con Accession Number(s): [id number] cc: RENNY HANSEN [place] [address] Patient Name: BREANN STARKS MRN: [facility]:[id number] date: 1945 Sex: F Assigned Patient Location: CT Current Patient Location: Accession/Order Number: [id number] Exam Date: 06/26/2024 14:58 Report Date: 06/28/2024 [...] due to patient body habitus and poor inzthg-op-nnftr ratio BONES: Reversal of normal cervical lordosis. [...] Alston M.D. Signed By:06/28/2445 DD/ 2 TD/TT: Cage Fighter: us Generic External Data Provider IMG CT PROCEDURES Final Result documented in this encounter Visit Diagnoses Not on filedocumented in this encounter Additional Health Concerns Assessment Noted Time PHQ-9 Depression Total Score: 1 09/06/20 23 2:00 PM EST documented as of this encounter Care Teams All Round Logger Relationship Specialty Start Date End Date Renny Hansen MD [address] [facility] 110 [place] [address] PCP - General Internal Medicine 09/19/24 Renny Hansen MD [address] [facility] 110 [place] [address] PCP - Medical [facility] 09/12/2409/11 Jazmín Calvillo NP Nurse Practitioner Family Medicine 05/17/24 09/18/24 Cindi Jenkins LSW [address] [place] [address] Labor Union Business Representative Family Medicine 11/06/24 12/05/24 Lisa Ramirez LPN [address] [facility] 110 [place] [address] 12/05/24 documented as of this encounter
--- OUTSIDE RECORDS SUMMARY | 2025-05-02 12:48 | XMS_ITS | Encounter Summary ---
Author Organization [facility] Address [address] [facility] [place] [address] Care Team Providers Care Cold Work Operator Name Role Phone Renny Hansen MD Primary Care Provider [phone] Renny Hansen MD Unavailable [phone] GregoryCindi ADULT MANAGER Unavailable [phone] Lisa Ramirez BRIDGE TENDER Unavailable Encounter Details Date Type Department Care Team (Late st Contact Info) Description 09/26/2024 [facility] 112 [facility] 110 [place] [address] Renny Hansen MD 112 [facility] 110 [place] [address] Social History Tobacco Use Types Packs/Day Years [...] How often do you attend mandaen or adventism serv ices? Patient declined 08/30/2023 Do you belong to any clubs o r organizations such as mandaen groups, unions, fraElectro-LuminX or athletic groups, or school groups? Yes [...] Recorded Patient Health Questionnaire-2 Score 0 05/31/2024 [facility] - Occupational Stress Questionnaire Answer [...] Visit [facility] [place] Zendejas [address] [facility] 110 [place] [address] Renny Hansen MD [address] [facility] 110 [place] [address] documented as of this encounter Visit Diagnoses Not on filedocumented in this encounter Additional Health Concerns Assessment Noted Time PHQ-9 Depression Total Score: 1 09/06/20 23 2:00 PM EST documented as of this encounter Care Teams Cold Work Operator Relationship Specialty Start Date End Date Renny Hansen MD [address] [facility] 110 [place] [address] PCP - General Internal Medicine 09/19/24 Renny Hansen MD [address] [facility] [address] [place] [address] PCP - Medical [place] 09/12/2409/11 Cindi Jenkins, GIDEON [address] [place] [address] Veneer Sander Family Medicine 11/06/24 12/05/24 Lisa Ramirez LPN 112 [facility] 110 [place] [address] 12/05/24 documented as of this encounter
--- OUTSIDE RECORDS SUMMARY | 2025-05-02 12:48 | XMS_ITS | Encounter Summary ---
Author Organization [facility] Address [address] [facility] [place] [address] Care Team Providers Care Sterilizer Machine Operator Name Role Phone Renny Hansen MD Primary Care Provider [phone] Renny Hansen MD Unavailable [phone] Lisa Ramirez LPN Unavailable Encounter Details Date Type Department Care Team (Late st Contact Info) Description 04/24/2025 Bamboo flowsheet [facility] [place] [facility] [address] [facility] 110 [place] [address] Shannon Robles, ASSOCIATE PROFESSOR OF MEDIA ARTS 112 [facility] 110 [place], [place] [address] Social History Tobacco Use Types Packs/Day Years [...] often do you attend chur ch or bahai services? Patient declined 11/12/2024 Do you belong [...] Recorded Patient Health Questionnaire-2 Score 0 04/24/2025 [facility] of Occupat ional Health - Occupational Stress [...] any time in the past 12 m [facility], were you homeless or living in [...] [address] [facility] 110 [place] [address] Renny Hansen MD 112 [facility] 110 [place] [address] documented as of this encounter Visit Diagnoses Not on filedocumented in this encounter Additional Health Concerns Assessment Noted Time PHQ-9 Depression Total Score: 1 09/06/20 23 2:00 PM EST documented as of this encounter Care Teams Sterilizer Machine Operator Relationship Specialty Start Date End Date Renny Hansen MD 112 [facility] 110 [place] [address] PCP - General Internal Medicine 09/19/24 Renny Hansen MD 112 [facility] 110 [place] [address] PCP - Medical [facility] 09/12/2409/11 Lisa Ramirez LPN 112 [place] [facility] 110 [place] [address] 12/05/24 documented as of this encounter
--- OUTSIDE RECORDS SUMMARY | 2025-05-02 12:48 | XMS_ITS | Encounter Summary ---
Author Organization [facility] Address [address] [place] [address] Care Team Providers Care Director Diversity Name Role Phone Jazmín Calvillo NP Unavailable [phone] Renny Hansen MD Primary Care Provider [phone] Renny Hansen MD Unavailable [phone] Cindi Jenkins WEATHER ANCHOR Unavailable Lisa Ramirez CONTACT REPRESENTATIVE Unavailable Encounter Details Date Type Department Care [...] How often do you attend yarsanism or uatsdin serv ices? Patient declined 08/30/2023 Do you belong to any clubs o r organizations such as yarsanism groups, unions, fraternal or athletic groups, or [...] Recorded Patient Health Questionnaire-2 Score 0 05/31/2024 [facility] of Occupat ional Health - [...] EDT Office Visit [facility] Maximino Zendejas 112 [facility] 110 [place] [address] Renny Hansen MD 112 [facility] 110 [place] [address] documented as of this encounter Procedures Procedure Name Priority Date/Time Associated Diagnosis Comments CT SHOULDER LEFT W IV CONTRAST 06/28/2024 8:42 AM EDT documented in this encounter Results * CT shoulder left w IV contrast (06/28/2024 8:42 AM EDT) Anatomical Region Laterality Modality Upper Extremities, Shoulder Left Comp uted Tomography 06/28/2024 8:42 AM EDT Narrative 06/28/2024 8:45 AM EDT The [address] [address] [address] Scan Report Signed Patient: BREANN STARKS MR#: [id number] : 1945 Acct:[id number] Age/Sex: 78 / F ADM Date: 06/26/24 Loc: CT Attending Dr: Channing Devlin M.D. Ordering Physician: Channing Devlin M.D. Date of Service: 06/26/24 Procedure(s): CT Shoulder LT w/ Con Accession Number(s): [id number] cc: RENNY HANSEN [place] [id number] Patient Name: BREANN STARKS MRN: [facility]:[id number] date: 1945 Sex: F Assigned Patient Location: CT Current Patient Location: Accession/Order Number: [id number] Exam Date: 06/26/2024 14:58 Report Date: 06/28/2024 [...] M.D. Signed By: 06/28/2445 DD/ 0842 TD/TT: Train Brake Operator: Procedure Note Radiology, Radiologist, - 06/28/[address] [address] [address] Scan Report Signed Patient: BREANN STARKS TMR#: [id number] : 8Acct:[id number] Age/Sex: 78 / FADM Date: 06/26/24 Loc: CT Attending Dr: Non-Staff Physician Magui Ordering Physician: Channing Devlin M.D. Date of Service: 06/26/24 Procedure(s): CT Shoulder LT w/ Con Accession Number(s): [id number] cc: RENNY HANSEN [address] [address] Patient Name: BREANN STARKS MRN: [id number] date: 1945 Sex: F Assigned Patient Location: CT Current Patient Location: Accession/Order Number: [id number] Exam Date: 06/26/2024 14:58 Report Date: 06/28/2024 [...] Jurado M.D. Signed By:06/28/2445 DD/ 1 TD/TT: Train Brake Operator: us Generic External Data Provider IMG CT PROCEDURES Final Result documented in this encounter Visit Diagnoses Not on filedocumented in this encounter Additional Health Concerns Assessment Noted Time PHQ-9 Depression Total Score: 1 09/06/20 23 2:00 PM EST documented as of this encounter Care Teams Director Diversity Relationship Specialty Start Date End Date Renny Hansen MD [address] [facility] 110 [place] [address] PCP - General Internal Medicine 09/19/24 Renny Hansen MD [address] [facility] 110 [place] [address] PCP - Medical [facility] 09/12/2409/11 Jazmín Calvillo NP Nurse Practitioner Family Medicine 05/17/24 09/18/24 Cindi Jenkins, GIDEON [address] [place] [address] Photo Studio Assistant Family Medicine 11/06/24 12/05/24 Lisa Ramirez LPN [address] [facility] 110 [place] [address] 12/05/24 documented as of this encounter
--- OUTSIDE RECORDS SUMMARY | 2025-05-02 12:48 | XMS_ITS | Encounter Summary ---
Author Organization [facility] Address [address] [facility] [place] [address] Care Team Providers Care Gauger Chief Delivery Name Role Phone Jazmín Calvillo BIRD RAISER Unavailable Renny Hansen MD Primary Care Provider [phone] Renny Hansen MD Unavailable [phone] Cindi Jenkins OTHER SALES SUPPORT WORKER Unavailable [phone] Lisa Ramirez OFFENDER JOB RETENTION SPECIALIST Unavailable Encounter Details Date Type Department Care Team (Late st Contact Info) Description 07/09/2024 Abstract [facility] [place] [facility] [address] [place] 110 [place] [address] Unallocated, Candido Provider, [address] [place], [place] [address] Social History Tobacco Use Types Packs/Day Years [...] How often do you attend yazdanism or muslim serv ices? Patient declined 08/30/2023 [...] Recorded Patient Health Questionnaire-2 Score 0 05/31/2024 [facility] of Occupat ional Health [...] [address] [facility] 110 [place] [address] Renny Hansen MD [address] [facility] 110 [place] [address] documented as of this encounter Visit Diagnoses Not on filedocumented in this encounter Additional Health Concerns Assessment Noted Time PHQ-9 Depression Total Score: 1 09/06/20 23 2:00 PM EST documented as of this encounter Care Teams Gauger Chief Delivery Relationship Specialty Start Date End Date Renny Hansen MD [address] [facility] [address] [place] [address] PCP - General Internal Medicine 09/19/24 Renny Hansen MD [address] [facility] 110 [place] [address] PCP - Medical [place] 09/12/2409/11 Jazmín Calvillo NP Nurse Practitioner Family Medicine 05/17/24 09/18/24 Cindi Jenkins, OTHER SALES SUPPORT WORKER [address] [place], [place] [address] Pharmacist Manager Family Medicine 11/06/24 12/05/24 Lisa Ramirez LPN [address] [facility] 110 [place] [address] 12/05/24 documented as of this encounter
--- OUTSIDE RECORDS SUMMARY | 2025-05-02 12:48 | XMS_ITS | Patient Health Record ---
Author Organization [facility] Address [address] [place] [address] Care Team Providers Care Nuclear Criticality Safety Engineer Name Role Phone SHAIKH DOMINGUEZ Primary Care Provider James Garcia Unavailable [phone] Reason For Referral No Information Plan Of Treatment Pending Test Test Name Order Date MRI : Shoulder W/O Contrast Left - 52874 03/05/2024 ORDERS 03/19/2024 Chest 2 views - [id number] 03/19/2024 Insurance Providers Payer Name Payer Address Payer Phone Subscriber Number Group Number Insured Name Patient Relationship to Insured Coverage Start Date Coverage End Date Medicare [employer] [address] [facility] [place] [phone] [id number] MAXIMUS HERRMANN Self - patient is the insured
--- OUTSIDE RECORDS SUMMARY | 2025-05-02 12:48 | XMS_ITS | Encounter Summary ---
Author Organization [facility] Address [address] [place] [address] Care Team Providers Care Safety Manager Name Role Phone Jazmín Calvillo MORTGAGE ADVISOR Unavailable [phone] Renny Hansen MD Primary Care Provider [phone] Renny Hansen MD Unavailable [phone] Cindi Jenkins MANAGEMENT ASSOCIATE Unavailable [phone] Lisa Ramirez GRADUATE INTERN Unavailable Encounter Details Date Type Department Care Team (Late st Contact Info) Description 07/24/2024 Abstract [facility] [address] [place] [address] Wesley Long MD [address] [place] [address] Social History Tobacco Use Types Packs/Day Years [...] How often do you attend adventist or holiness serv ices? Patient declined 08/30/2023 [...] [address] [facility] 110 [place] [address] Renny Hansen MD [address] [facility] 110 [place] [address] documented as of this encounter Visit Diagnoses Not on filedocumented in this encounter Additional Health Concerns Assessment Noted Time PHQ-9 Depression Total Score: 1 09/06/20 23 2:00 PM EST documented as of this encounter Care Teams Safety Manager Relationship Specialty Start Date End Date Renny Hansen MD [address] [facility] 110 [place] [address] PCP - General Internal Medicine 09/19/24 Renny Hansen MD [address] [facility] 110 [place] [address] PCP - Medical [place] 09/12/2409/11 Jazmín Calvillo NP Nurse Practitioner Family Medicine 05/17/24 09/18/24 Cindi Jenkins, MANAGEMENT ASSOCIATE [address] [place] [address] Laundry Housekeeper Family Medicine 11/06/24 12/05/24 Lisa Ramirez LPN [address] [facility] 110 [place] [address] 12/05/24 documented as of this encounter
--- OUTSIDE RECORDS SUMMARY | 2025-05-02 12:48 | XMS_ITS | Encounter Summary ---
Author Organization [facility] Address [address] [facility] [place] [address] Care Team Providers Care Picket Labor Union Name Role Phone Renny Hansen MD Primary Care Provider [phone] Renny Hansen MD Unavailable [phone] Lisa Ramirez LPN Unavailable Encounter Details Date Type Department Care Team (Late st Contact Info) Description 04/18/2025 Bamboo flowsheet [facility] [place] [facility] [address] [facility] 110 [place] [address] Eleanor Leahy PA 112 [facility] 110 [place] [address] Social History Tobacco Use Types Packs/Day Years [...] often do you attend chur ch or pentecostal services? Patient declined 11/12/2024 Do you belong [...] Recorded Patient Health Questionnaire-2 Score 0 04/18/2025 [facility] of Occupat ional Health - Occupational Stress [...] [address] [facility] 110 [place] [address] Renny Hansen MD 112 [facility] 110 [place] [address] documented as of this encounter Visit Diagnoses Not on filedocumented in this encounter Additional Health Concerns Assessment Noted Time PHQ-9 Depression Total Score: 1 09/06/20 23 2:00 PM EST documented as of this encounter Care Teams Picket Labor Union Relationship Specialty Start Date End Date Renny Hansen MD 112 [facility] 110 [place] [address] PCP - General Internal Medicine 09/19/24 Renny Hansen MD 112 [facility] 110 [place] [address] PCP - Medical [facility] 09/12/2409/11 Lisa Ramirez LPN 112 [facility] 110 [place] [address] 12/05/24 documented as of this encounter
--- OUTSIDE RECORDS SUMMARY | 2025-05-02 12:48 | XMS_ITS | Encounter Summary ---
Author Organization [facility] Address [address] [facility] [place] [address] Care Team Providers Care Laborer Cheesemaking Name Role Phone Jazmín Calvillo DOCUMENTATION SUPERVISOR Unavailable [phone] Renny Hansen MD Primary Care Provider [phone] Renny Hansen MD Unavailable [phone] Cindi Jenkins ASSISTANT PROFESSOR OF ART Unavailable [phone] Lisa Ramirez IT SECURITY ENGINEER Unavailable Encounter Details Date Type Department Care Team (Late st Contact Info) Description 08/08/2024 Clinisync Result Encounter [facility] External Department Unsolicited Renny Hansen MD [address] [address] Social History Tobacco Use Types Packs/Day Years [...] How often do you attend orthodoxy or adventist serv ices? Patient declined 08/30/2023 Do you belong to any clubs o r organizations such as orthodoxy groups, unions, fraRealTravel or athletic groups, or school groups? Yes [...] Patient Health Questionnaire-2 Score 0 05/31/2024 [facility] - Occupational Stress Questionnaire Answer Date Recorded [...] EDT Office Visit [facility] [place] Zendejas 112 [facility] 110 [place] [address] Renny Hansen MD 112 [facility] 110 [place] [address] documented as of this encounter Procedures Procedure Name Priority Date/Time Associated Diagnosis Comments XR CINERADIOGRAPHY 08/08/2024 6: 31 AM EST documented in this encounter Results * XR CINERADIOGRAPHY (08/08/2024 6:31 AM EST) Anatomical Region Laterality Modality Other 08/08/2024 6:31 AM EST Narrative 08/08/2024 6:33 AM EST The [address] [address] Fluoroscopy Report Signed Patient: BREANN HERRMANN MR#: [id number] : 1945 Acct:[id number] Age/Sex: 78 / F ADM Date: 08/07/24 Loc: [place] Attending Dr: RENNY HANSEN Ordering Physician: RENNY HANSEN Date of Service: 08/07/24 Procedure(s): [place] cineradiography Accession Number(s): [id number] cc: RENNY HANSEN [place] [address] Patient Name: BREANN HERRMANN MRN: [id number] date: 1945 Sex: F Assigned Patient Location: [place] Current Patient Location: Accession/Order Number: [id number] Exam Date: 08/07/2024 08:45 Report Date: 08/08/2024 [...] M.D. Signed By: 08/08/2433 DD/ 0 TD/TT: Special Effects Makeup Artist: Procedure Note Radiology, Radiologist, MD - 08/08/2024 [place] [address] Fluoroscopy Report Signed Patient: BREANN HERRMANN TMR#: [id number] : 8Acct:[id number] Age/Sex: 78 / FADM Date: 08/07/24 Loc: [place] Attending Dr: RENNY HANSEN Ordering Physician: RENNY HANSEN Date of Service: 08/07/24 Procedure(s): [place] cineradiography Accession Number(s): [id number] cc: RENNY HANSEN [place] [id number] Patient Name: BREANN HERRMANN MRN: [id number] date: 1945 Sex: F Assigned Patient Location: [place] Current Patient Location: Accession/Order Number: [id number] Exam Date: 08/07/2024 08:45 Report Date: 08/08/2024 [...] Delgado M.D. Signed By:08/08/24632 DD/ 0 TD/TT: Special Effects Makeup Artist: Renny Hansen MD [facility] Final Result documented in this encounter Visit Diagnoses Not on filedocumented in this encounter Additional Health Concerns Assessment Noted Time PHQ-9 Depression Total Score: 1 09/06/20 23 2:00 PM EST documented as of this encounter Care Teams Laborer Cheesemaking Relationship Specialty Start Date End Date Renny Hansen MD 112 [facility] 110 [place] [address] PCP - General Internal Medicine 09/19/24 Renny Hansen MD [address] [facility] 110 [place] [address] PCP - Medical [place] 09/12/2409/11 Jazmín Calvillo NP Nurse Practitioner Family Medicine 05/17/24 09/18/24 Cindi Jenkins LSW [address] [place] [address] Grass Farm Laborer Family Medicine 11/06/24 12/05/24 Lisa Ramirez LPN 112 [facility] 110 [place] [address] 12/05/24 documented as of this encounter
--- OUTSIDE RECORDS SUMMARY | 2025-05-02 12:48 | XMS_ITS | Encounter Summary ---
Author Organization [facility] Address [address] [place] [address] Care Team Providers Care Saute Chef Name Role Phone Jazmín Calvillo CRM DYNAMICS DEVELOPER Unavailable [phone] Renny Hansen MD Primary Care Provider [phone] Renny Hansen MD Unavailable [phone] Cindi Jenkins OVERHEAD CRANE TECHNICIAN Unavailable [phone] Lisa Ramirez REGIONAL FACILITIES SPECIALIST Unavailable Encounter Details Date Type Department Care Team (Late st Contact Info) Description 07/25/2024 Abstract [facility] [address] [place] [address] Wesley Long MD [address] [place] [address] Social History Tobacco Use Types Packs/Day Years [...] How often do you attend orthodox or nondenominational serv ices? Patient declined 08/30/2023 [...] Visit [facility] [place] Zendejas [address] [facility] [address] [place] [address] Renny Hansen MD [address] [facility] [address] [place] [address] documented as of this encounter Visit Diagnoses Not on filedocumented in this encounter Additional Health Concerns Assessment Noted Time PHQ-9 Depression Total Score: 1 09/06/20 23 2:00 PM EST documented as of this encounter Care Teams Saute Chef Relationship Specialty Start Date End Date Renny Hansen MD [address] [facility] [address] [place] [address] PCP - General Internal Medicine 09/19/24 Renny Hansen MD [address] [facility] 110 [place] [address] PCP - Medical [place] MA 09/12/2409/11 Jazmín Calvillo NP Nurse Practitioner Family Medicine 05/17/24 09/18/24 Cindi Jenkins, OVERHEAD CRANE TECHNICIAN [address] [place] [address] Management Aide Family Medicine 11/06/24 12/05/24 Lisa Ramirez LPN [address] [facility] 110 [place] [address] 12/05/24 documented as of this encounter
--- OUTSIDE RECORDS SUMMARY | 2025-05-02 12:48 | XMS_ITS | Encounter Summary ---
Author Organization [facility] Address [address] [place] [address] Care Team Providers Care Fixture Repairer Fabricator Name Role Phone Jazmín Calvillo NEEDLE PUNCH MACHINE OPERATOR HELPER Unavailable [phone] Renny Hansen MD Primary Care Provider Renny Hansen MD Unavailable [phone] Cindi Jenkins DIRECTOR OF ASSESSMENT Unavailable [phone] Lisa Ramirez CEMENT CRUSHER OPERATOR Unavailable Encounter Details Date Type Department Care Team (Late st Contact Info) Description 07/05/2024 Abstract [facility] [address] [place] [address] Wesley Long MD [address] [place] [address] Social History Tobacco Use Types Packs/Day Years [...] How often do you attend yazidi or muslim serv ices? Patient declined 08/30/2023 Do you belong to any clubs o r organizations such as yazidi groups, unions, fraternal or athletic groups, or [...] Recorded Patient Health Questionnaire-2 Score 0 05/31/2024 [facility] of Occupat ional Health - Occupational Stress [...] Visit [facility] [place] Zendejas [address] [facility] [address] [place] [address] Renny Hansen MD [address] [facility] 110 [place] [address] documented as of this encounter Visit Diagnoses Not on filedocumented in this encounter Additional Health Concerns Assessment Noted Time PHQ-9 Depression Total Score: 1 09/06/20 23 2:00 PM EST documented as of this encounter Care Teams Fixture Repairer Fabricator Relationship Specialty Start Date End Date Renny Hansen MD [address] [facility] [address] [place] [address] PCP - General Internal Medicine 09/19/24 Renny Hansen MD [address] [facility] 110 [place] [address] PCP - Medical [place] MA 09/12/2409/11 Jazmín Calvillo NP Nurse Practitioner Family Medicine 05/17/24 09/18/24 Cindi Jenkins, DIRECTOR OF ASSESSMENT [address] [place] [address] Wire Inserter Family Medicine 11/06/24 12/05/24 Lisa Ramirez LPN [address] [facility] 110 [place] [address] 12/05/24 documented as of this encounter
--- OUTSIDE RECORDS SUMMARY | 2025-05-02 12:48 | XMS_ITS | Encounter Summary ---
Author Organization [facility] Address [address] [place] [address] Care Team Providers Care Solid Waste Facility Operator Name Role Phone Pualette Johnson MD Primary Care Provider [phone] Shaikh BEREKET Denis Primary Care Provider [phone] Renny Hansen MD Primary Care Provider [phone] Balta Cardenas DO Unavailable [phone] Encounter Details Date Type Department Care Team (Late st Contact Info) Description 04/28/2022 Orders Only [facility] Family Medicine [address] [place] [address] Roopa Mensah MA Social History [...] [facility] Infectious Disease [address] [place] [address] Ortega Hines MD [address] [facility] [address] documented as of this encounter Visit Diagnoses Not on filedocumented in this encounter Care Teams Solid Waste Facility Operator Relationship Specialty Start Date End Date Paulette Johnson MD [address]A PCP - General 05/03/22 07/04/23 Shaikh Denis MD [address] PCP - General Family Medicine 07/05/23 07/17/24 Renny Hansen MD [address] [facility] 110 [place] [address] PCP - General Internal Medicine 07/18/24 Balta Cardenas DO [address] [place] [address] Referring Physician 11/15/24 documented as of this encounter
--- OUTSIDE RECORDS SUMMARY | 2025-05-02 12:48 | XMS_ITS | Clinical Summary ---
Author Organization [email or web address] Address [id number] [address] [place] [address] Care Team Providers Care Learning Facilitator Name Role Phone Unavailable Primary Care Provider [...] Medical Devices Not on file Insurance MEDICARE [facility]
--- OUTSIDE RECORDS SUMMARY | 2025-05-02 12:48 | XMS_ITS | Encounter Summary ---
Author Organization [facility] Address [address] [facility] [place] [address] Care Team Providers Care Revising Clerk Name Role Phone Jazmín Calvillo BABY REGISTRY SALES CONSULTANT Unavailable [phone] Renny Hansen MD Primary Care Provider [phone] Renny Hansen MD Unavailable [phone] Cindi Jenkins CARPENTER RAILCAR Unavailable [phone] Lisa Ramirez EDGE TRIMMER Unavailable Reason for Referral * Consultation (Routine) - Closed Specialty Diagnoses / Procedures Referred By Millie egan Referred To Contact Neurology Diagnoses Neck pain on left side Procedures ME OFFICE/OUTPATIENT NEW HIGH MDM 60 MINUTES Renny Hansen MD 112 [facility] 110 [place] [address] Phone: tel: fax: Wil Lord MD Phone: tel: fax: Referral ID Status Reason Start Date Expiration Date V isits Requested Visits Authorized [id number] Closed Specialty Services Required 09/13/2024 03/12/2025 1 1 Encounter Details Date Type Department Care Team (Late st Contact Info) Description 09/13/2024 Abstract [facility] [place] [facility] [address] [facility] [address] [place] [address] Renny Hansen MD 112 [facility] 110 [place], [place] [address] Neck pain on left side Social History [...] How often do you attend quaker or bahai serv ices? Patient declined 08/30/2023 [...] Recorded Patient Health Questionnaire-2 Score 0 05/31/2024 [facility] of Occupat ional Health - Occupational Stress [...] Family Medince [address] [place] [address] [place] [address] Renny Hansen MD 112 [facility] 110 [place] [address] Scheduled Referrals Name Type Priority Associated Diagnoses [...] documented as of this encounter Care Teams Revising Clerk Relationship Specialty Start Date End Date Renny Hansen MD 112 [facility] 110 [place] [address] PCP - General Internal Medicine 09/19/24 Renny Hansen MD 112 [facility] 110 [place] [address] PCP - Medical [place] MA 09/12/2409/11 Jazmín Calvillo NP Nurse Practitioner Family Medicine 05/17/24 09/18/24 Cindi Jenkins, GIDEON [address] [place] [address] Stem Crusher Family Medicine 11/06/24 12/05/24 Lisa Ramirez LPN 112 [facility] 110 [place] [address] 12/05/24 documented as of this encounter
--- OUTSIDE RECORDS SUMMARY | 2025-05-02 12:48 | XMS_ITS | Encounter Summary ---
Author Organization [facility] Address [address] [facility] [place] [address] Care Team Providers Care Podiatric Technician Name Role Phone Jazmín Calvillo INTAKE COUNSELOR Unavailable [phone] Renny Hansen MD Primary Care Provider [phone] Renny Hansen MD Unavailable [phone] Cindi Jenkins HOTEL RESERVATIONIST Unavailable [phone] Lisa Ramirez EXPLOSIVE TECHNICIAN Unavailable Encounter Details Date Type Department Care Team (Late st Contact Info) Description 08/08/2024 Clinisync Result Encounter [facility] External Department Unsolicited Renny Hansen MD [address] [address] Social History Tobacco Use Types Packs/Day Years [...] How often do you attend buddhism or rastafari serv ices? Patient declined 08/30/2023 Do you belong to any clubs o r organizations such as buddhism groups, unions, fraiGuiders or athletic groups, or school groups? Yes [...] Recorded Patient Health Questionnaire-2 Score 0 05/31/2024 [facility] - Occupational Stress Questionnaire Answer [...] Zendejas 112 [facility] 110 [place] [address] Renny Hansen MD 112 [facility] 110 [place] [address] documented as of this encounter Procedures Procedure Name Priority Date/Time Associated Diagnosis Comments FL UPPER GI W AIR* 08/08/2024 6: 31 AM EST documented in this encounter Results * FL UPPER GI W AIR* (08/08/2024 6:31 AM EST) Anatomical Region Laterality Modality Radiographic Jayashree ging 08/08/2024 6:31 AM EST Narrative 08/08/2024 6:33 AM EST The [address] [address] Fluoroscopy Report Signed Patient: BREANN HERRMANN MR#: [id number] : 1945 Acct:[id number] Age/Sex: 78 / F ADM Date: 08/07/24 Loc: [place] Attending Dr: RENNY HANSEN Ordering Physician: RENNY HANSEN Date of Service: 08/07/24 Procedure(s): FL upper GI w air Accession Number(s): [id number] cc: RENNY HANSEN The [place] [address] Patient Name: BREANN HERRMANN MRN: [id number] date: 1945 Sex: F Assigned Patient Location: [place] Current Patient Location: Accession/Order Number: [id number] Exam Date: 08/07/2024 08:45 Report Date: 08/08/2024 [...] M.D. Signed By: 08/08/2433 DD/ 0 TD/TT: Marketing Project Lead: Procedure Note Radiology, Radiologist, MD - 08/08/2024 [place] [address] Fluoroscopy Report Signed Patient: BREANN HERRMANN TMR#: [id number] : 8Acct:[id number] Age/Sex: 78 / FADM Date: 08/07/24 Loc: [place] Attending Dr: RENNY HANSEN Ordering Physician: RENNY HANSEN Date of Service: 08/07/24 Procedure(s): FL upper GI w air Accession Number(s): [id number] cc: RENNY HANSEN The [address] [address] Patient Name: BREANN HERRMANN MRN: [id number] date: 1945 Sex: F Assigned Patient Location: [place] Current Patient Location: Accession/Order Number: [id number] Exam Date: 08/07/2024 08:45 Report Date: 08/08/2024 06:31 At the request of: RENNY AHNSEN Procedure: FL upper GI w air PROCEDURE: [...] Delgado M.D. Signed By:08/08/24632 DD/ 0 TD/TT: Marketing Project Lead: Renny Hansen MD IMG XR PROCEDURES Final Result documented in this encounter Visit Diagnoses Not on filedocumented in this encounter Additional Health Concerns Assessment Noted Time PHQ-9 Depression Total Score: 1 09/06/20 23 2:00 PM EST documented as of this encounter Care Teams Podiatric Technician Relationship Specialty Start Date End Date Renny Hansen MD [address] [facility] 110 [place] [address] PCP - General Internal Medicine 09/19/24 Renny Hansen MD [address] [facility] [address] [place] [address] PCP - Medical [place] MA 09/12/2409/11 Jazmín Calvillo NP Nurse Practitioner Family Medicine 05/17/24 09/18/24 Cindi Jenkins, HOTEL RESERVATIONIST [address] [place] [address] Pharmacy Sales Assistant Family Medicine 11/06/24 12/05/24 Lisa Ramirez LPN 112 [facility] 110 [place] [address] 12/05/24 documented as of this encounter
--- OUTSIDE RECORDS SUMMARY | 2025-05-02 12:48 | XMS_ITS | Encounter Summary ---
Author Organization [facility] Address [address] [place] [address] Care Team Providers Care Keymodule Assembly Machine Tender Name Role Phone Renny Hansen MD Primary Care Provider [phone] Renny Hansen MD Unavailable [phone] Lisa Ramirez LPN Unavailable Encounter Details [...] often do you attend chur ch or scientology services? Patient declined 11/12/2024 Do [...] Recorded Patient Health Questionnaire-2 Score 0 04/24/2025 [facility] - Occupational Stress [...] a fdc (including now)? Patient refused 08/30/2023 Housing Stability [...] were you homeless or living in a fdc (including now)? No 11/12/2024 Comments Unknown Sex [...] 11:00 AM EDT Office Visit [facility] [place] [facility] [address] [place] [address] [place] [address] Renny Hansen MD [address] [facility] [address] [place] [address] documented as of this encounter Visit Diagnoses Not on filedocumented in this encounter Additional Health Concerns Assessment Noted Time PHQ-9 Depression Total Score: 1 09/06/20 23 2:00 PM EST documented as of this encounter Care Teams Keymodule Assembly Machine Tender Relationship Specialty Start Date End Date Renny Hansen MD [address] [facility] 110 [place] [address] PCP - General Internal Medicine 09/19/24 Renny Hansen MD [address] [facility] 110 [place] [address] PCP - Medical [facility] 09/12/2409/11 Lisa Ramirez LPN [address] [facility] [address] [place] [address] 12/05/24 documented as of this encounter
--- OUTSIDE RECORDS SUMMARY | 2025-05-02 12:48 | XMS_ITS | Encounter Summary ---
Author Organization [facility] Address [address] [facility] [place] [address] Care Team Providers Care Cleaning Manager Name Role Phone Renny Hansen MD Primary Care Provider [phone] Renny Hansen MD Unavailable [phone] GregoryCindi EDITOR MAP Unavailable [phone] Lisa Ramirez PROJECT ASST Unavailable Encounter Details Date Type Department Care Team (Late st Contact Info) Description 09/21/2024 Abstract [facility] [place] [facility] 112 [facility] 110 [place] [address] Renny Hansen MD 112 [facility] 110 [place] [address] Social History Tobacco Use Types Packs/Day Years [...] How often do you attend buddhist or rastafari serv ices? Patient declined 08/30/2023 Do you belong to any clubs o r organizations such as buddhist groups, unions, fraLodgeo or athletic groups, or school groups? Yes [...] 05/31/2024 [facility] - Occupational Stress [...] Visit [facility] [place] Zendejas [address] [facility] 110 [place] [address] Renny Hansen MD [address] [facility] [address] [place] [address] documented as of this encounter Visit Diagnoses Not on filedocumented in this encounter Additional Health Concerns Assessment Noted Time PHQ-9 Depression Total Score: 1 09/06/20 23 2:00 PM EST documented as of this encounter Care Teams Cleaning Manager Relationship Specialty Start Date End Date Renny Hansen MD [address] [facility] [address] [place] [address] PCP - General Internal Medicine 09/19/24 Renny Hansen MD [address] [facility] [address] [place] [address] PCP - Medical [place] MA 09/12/2409/11 Cindi Jenkins, GIDEON [address] [place] [address] Primary Substance Abuse Counselor Family Medicine 11/06/24 12/05/24 Lisa Ramirez LPN 112 [facility] 110 [place] [address] 12/05/24 documented as of this encounter
--- OUTSIDE RECORDS SUMMARY | 2025-05-02 12:48 | XMS_ITS | Encounter Summary ---
Author Organization [facility] Address [address] [facility] [place] [address] Care Team Providers Care Vp Analysis Name Role Phone Renny Hansen MD Primary Care Provider [phone] Renny Hansen MD Unavailable [phone] GregoryCindi BILINGUAL ELEMENTARY SCHOOL TEACHER Unavailable [phone] Lisa Ramirez OPERATIONS DEVELOPER Unavailable Encounter Details Date Type Department Care Team (Late st Contact Info) Description 10/18/2024 Abstract [facility] [place] [facility] [address] [facility] 110 [place] [address] Renny Hansen MD 112 [facility] 110 [place] [address] Social History Tobacco Use Types Packs/Day Years [...] file 10/10/2024 How often do you attend oriental orthodox or oriental orthodox serv ices? Patient declined 10/10/2024 Do you [...] EDT Office Visit [facility] [place] Zendejas [address] [facility] 110 [place] [address] Renny Hansen MD 112 [facility] [address] [place] [address] documented as of this encounter Visit Diagnoses Not on filedocumented in this encounter Additional Health Concerns Assessment Noted Time PHQ-9 Depression Total Score: 1 09/06/20 23 2:00 PM EST documented as of this encounter Care Teams Vp Analysis Relationship Specialty Start Date End Date Renny Hansen MD [address] [facility] 110 [place] [address] PCP - General Internal Medicine 09/19/24 Renny Hansen MD [address] [facility] 110 [place] [address] PCP - Medical [place] MA 09/12/2409/11 Cindi Jenkins, GIDEON [address] [place] [address] Dragsaw Operator Family Medicine 11/06/24 12/05/24 Lisa Ramirez LPN [address] [facility] 110 [place] [address] 12/05/24 documented as of this encounter
--- OUTSIDE RECORDS SUMMARY | 2025-05-02 12:48 | XMS_ITS | Encounter Summary ---
Author Organization [facility] Address [address] [facility] [place] [place] [address] Care Team Providers Care Class C Truck Driver Name Role Phone Renny Hansen MD Primary Care Provider [phone] Renny Hansen MD Unavailable [phone] Lisa Ramirez LPN Unavailable Encounter Details Date Type Department Care Team (Late st Contact Info) Description 04/24/2025 Clinisync Result Encounter NOMS External Department [...] often do you attend chur ch or samaritan services? Patient declined 11/12/2024 Do you belong to any clubs o r organizations such as zoroastrianism groups, unions, fraternal or athletic groups, or [...] Recorded Patient Health Questionnaire-2 Score 0 04/24/2025 [facility] - Occupational Stress Questionnaire Answer Date Recorded [...] things Not at all 04/24/2025 9:33 AM BRIGIDAT GEOVANNY ALAS Feeling down, depressed, or hopeless Not at all 04/12 9:33 AM GEOVANNY BOWMAN Patient Health Questionnaire-2 Score 0 04/12 9:33 AM EDT GEOVANNY AALS documented as of this encounter Plan of Treatment Upcoming Encounters Date Type Department Care Team (Late st Contact Info) Description 05/16/2025 11:00 AM EDT Office Visit [facility] [place] [facility] [address] [place] [address] [place] [address] Renny Hansen MD [address] [address] documented as of this encounter Procedures Procedure Name Priority Date/Time Associated Diagnosis Comments FREE K+L LT CHAINS,QN,S Routine 04/24/2025 1:20 PM EDT PROTEIN ELECTRO.,S Routine 04/24/2025 1: 20 PM EDT METRO IRON AND TIBC Routine 04/24/2025 1 :20 PM EDT [facility] FERRITIN Routine 04/24/2025 1:20 PM EDT [facility] CMP (CMP) (FOR REMOTE [facility] USE) Routine 04/24/2025 1:20 PM EDT ALL SED RATE Routine 04/24/2025 1:20 PM EDT ALL LDH Routine 04/24/2025 1:20 PM EDT ALL CBC WITH AUTO DIFF Routine 04/24/2025 1:20 PM EDT documented in this encounter Results * (ABNORMAL) FREE K+L LT CHAINS,QN,S (04/24/2025 1:20 PM EDT) FREE KAPPA LT CHAINS,S 33.9(A) 3.3 - 19.4 mg/L TBH FREE LAMBDA LT CHAINS,S 25.7 5.7 - 26.3 mg/L TBH KAPPA/LAMBDA RATIO,S 1.32 0.26 - 1.65 TBH Comment: Performed at: [address] [id number] Crime Scene Specialist: Baudilio Givens PhD, Phone: [phone] 04/24/2025 1:20 PM EDT 04/24/2025 1:22 PM EDT Narrative CLINISYNC - 04/25/2025 4:09 PM EDT Generic External Data Provider LAB BLOOD ORDERAB LES Final Result [facility] * PROTEIN ELECTRO.,S (04/24/2025 1:20 PM EDT) PROTEIN, TOTAL 7.1 6.0 - 8.5 g/dL TBH ALBUMIN 3.4 2.9 - 4.4 g/dL TBH [id number] 0.2 0.0 - 0.4 g/dL TBH [id number] 0.8 0.4 - 1.0 g/dL TBH BETA GLOBULIN 1.1 0.7 - 1.3 g/dL TBH GAMMA GLOBULIN 1.6 0.4 - 1.8 g/dL TBH M-SPIKE Not Observed Not Observed g/dL TBH GLOBULIN, TOTAL 3.7 2.2 - 3.9 g/dL TBH A/G RATIO 0.9 0.7 - 1.7 TBH PLEASE NOTE: Comment . TBH Comment: Protein electrophoresis scan will follow via computer, mail, or strategy specialist delivery. Performed at: [address] [id number] Crime Scene Specialist: Baudilio Givens PhD, Phone: [phone] 04/24/2025 1:20 PM EDT 04/24/2025 1:22 PM EDT Narrative CLINISYCT - 04/25/2025 4:09 PM EDT Generic External Data Provider LAB BLOOD ORDERAB LES Final Result [facility] * [facility] FERRITIN (04/24/2025 1:20 PM EDT) FERRITIN 9.0 8.0 - 252.0 ng/mL TBH 04/24/2025 1:20 PM EDT 04/24/2025 1:22 PM EDT Narrative CLINISYNC - 04/24/2025 2:39 PM EDT Generic External Data Provider CLINISYNC F inal Result Performing Organization Address City/[facility] Co de Phone Number CLINJOENC TB * (ABNORMAL) METRO IRON AND TIBC (04/24/2025 1:20 PM EDT) TBH IRON 13.0(L) 50.0 - 170.0 ug/dL TBH TBH TOTAL IRON BINDING CAPACITY 420.0 250.0 - 450.0 ug/dL TBH TBH PERCENT IRON SATURATION 3.1 % TBH 04/24/2025 1:20 PM EDT 04/24/2025 1:22 PM EDT Narrative CLINISYCT - 04/24/2025 2:28 PM EDT Generic External Data Provider CLINISYNC F inal Result Performing Organization Address [facility] de Phone Number CLINJOENC TB * ALL LDH (04/24/2025 1:20 PM EDT) LACTATE DEHYDROGENASE 168 81 - 234 U/L TBH 04/24/2025 1:20 PM EDT 04/24/2025 1:22 PM EDT Narrative CLINISYCT - 04/24/2025 2:24 PM EDT Generic External Data Provider CLINISYNC F ina Result Performing Organization Address [facility] Co de Phone Number CLINJOENC TB * (ABNORMAL) [facility] CMP (CMP) (FOR REMOTE [facility] USE) (04/24/2025 1:20 PM EDT) SODIUM [...] 0.55 - 1.02 mg/dL TBH TBH EGFR-AF [place] >60 >=60 mL/min/1. 73m 2 TBH TBH EGFR-NON AF [place] >60 >=60 mL/min/1. 73m 2 TBH BUN CREATININE RATIO 31.5 TBH CALCIUM 9.1 8.5 - 10.1 mg/dL TBH BILIRUBIN TOTAL 0.4 0.2 - 1.0 mg/dL TBH ASPARTATE AMINO TRANSFERASE 23 15 - 37 U/L TBH ALANINE AMINOTRANSFERASE 28 14 - 59 U/L TBH ALKALINE PHOSPHATASE 101 46 - 116 U/L TBH TOTAL PROTEIN 7.8 6.4 - 8.2 g/dL TBH ALBUMIN LEVEL 3.4 3.4 - 5.0 g/dL TBH GLOBULIN 4.4 g/dL TBH ALBUMIN GLOBULIN RATIO 0.8 TBH 04/24/2025 1:20 PM EDT 04/24/2025 1:22 PM EDT Narrative CLINISYNC - 04/24/2025 2:24 PM EDT Generic External Data Provider CLINISYNC F inal Result Performing Organization Address [facility] de Phone Number [facility] * (ABNORMAL) ALL SED RATE (04/24/2025 1:20 PM EDT) [facility] SED RATE 91(H) <=30 mm/hr TB 04/24/2025 1:20 PM EDT 04/24/2025 1:22 PM EDT Narrative CLINISYNC - 04/24/2025 1:43 PM EDT Pertino External Data Provider CLINISYNC F inal Result Performing Organization Address City/[facility]/ZIP Co de Phone Number [facility] * (ABNORMAL) ALL CBC WITH AUTO DIFF (04/24/2025 1:20 PM EDT) [facility] WBC 8.6 4.0 - 11.0 10 3/uL TBH TB RBC 3.54(L) 4.20 - 5.40 10 6/uL TBH TB HGB 7.9(L) 12.0 - 16.0 g/dL TBH [...] us Generic External Data Provider DIONICIO F inal Result DIONICIO [facility] documented in this encounter Visit Diagnoses Not on filedocumented in this encounter Additional Health Concerns Assessment Noted Time PHQ-9 Depression Total Score: 1 09/06/20 23 2:00 PM EST documented as of this encounter Care Teams Class C Truck Driver Relationship Specialty Start Date End Date Renny Hansen MD [address] [facility] [address] [place] [address] PCP - General Internal Medicine 09/19/24 Renny Hansen MD [address] [facility] [address] [place] [address] PCP - Medical [facility] 09/12/2409/11 Lisa Ramirez LPN [address] [facility] [address] [place] [address] 12/05/24 documented as of this encounter
--- OUTSIDE RECORDS SUMMARY | 2025-05-02 12:48 | XMS_ITS | Encounter Summary ---
Author Organization [facility] Address [address] [facility] [place] [address] Care Team Providers Care Store Leader Name Role Phone Renny Hansen MD Primary Care Provider [phone] Renny Hansen MD Unavailable [phone] Lisa Ramirez LPN Unavailable Encounter Details Date Type Department Care Team (Late st Contact Info) Description 04/17/2025 Telephone [facility] [place] [facility] [address] [facility] 110 [place] [address] Renny Hansen MD 112 [facility] 110 [place] [address] Social History Tobacco Use Types Packs/Day Years [...] How often do you attend chur or jainism services? Patient declined 11/12/2024 Do you belong [...] time in the past 12 m [facility], were you homeless or living [...] Face to face OV notes faxed to [facility] * Lisa Ramirez LPN - 04/18/2025 8:54 AM EDT Pt has appt 04/18 to complete face to face. * Lisa Ramirez LPN - 04/17/2025 1:05 PM EDT Call to pt to let pt know that a face to face office visit is needed for the [employer] company to processNebulizer prescription. No answer, message left. documented in this encounter Miscellaneous Notes * Telephone Encounter - GEOVANNY ALAS - 04/17/2025 11:53 AM EDT Hi, this call is for the nurse for Dr. Renny Adrian. I am calling from [employer]. In regards to the order for Meredith seen AI D W O Y A N is the last name. Date of is 1945. We received an order for this patient for a nebulizer. There was only 2 pages. We will also need to have the progress notes sent over along with a medication list. And our fax number is [phone] and our phone number is [phone]. Thank you documented in this encounter Plan of Treatment Upcoming Encounters Date Type Department Care Team (Late st Contact Info) Description 05/16/2025 11:00 AM EDT [facility] [place] [facility] 112 [facility] 110 [place] [address] Renny Hansen MD [address] [address] documented as of this encounter Visit Diagnoses Diagnosis Chronic obstructive pulmonary disease, unspecified COPD type (HCC)- Primary Persistent atrial fibrillation (HCC) Atrial fibrillation documented in this encounter Additional Health Concerns Assessment Noted Time PHQ-9 Depression Total Score: 1 09/06/20 23 2:00 PM EST documented as of this encounter Care Teams Store Leader Relationship Specialty Start Date End Date Renny Hansen MD [address] [address] PCP - General Internal Medicine 09/19/24 Renny Hansen MD [address] [address] PCP - Medical [place] 09/12/2409/11 Lisa Ramirez LPN [address] [address] 12/05/24 documented as of this encounter
--- OUTSIDE RECORDS SUMMARY | 2025-05-02 12:48 | XMS_ITS | Clinical Summary ---
Author Organization [facility] Address [address] [place] [address] Care Team Providers Care Bacon Skinner Name Role Phone Renny Hansen MD Primary Care Provider [phone] Balta Cardenas DO Unavailable [phone] Allergies No known active allergies Medications cholecalciferol (Vitamin D-3) 125 MCG (5000 UT) capsule Take 1 tablet by mouth in the morning. Active spironolactone (Aldactone) 25 mg tabletIndication s:Edema, unspecified TAKE 1 TABLET BY MOUTH EVERY DAY 90 tablet 3 3 Active Eliquis 5 mg tablet Take 5 mg by mouth every 12 (twelve) hours. 3 Active baclofen (Lioresal) 10 mg tablet Take [...] 240 tablet 1 5 05/21/20 25 Active furosemide (Lasix) 40 mg tabletIndication s:Benign hypertensive heart disease with heart failure (CMS/HCC) Take 1 tablet (40 mg) by mouth two times daily. 180 tablet 3 5 04/26/20 26 Active furosemide (Lasix) 40 mg tabletIndication s:Benign hypertensive heart disease with heart failure (CMS/HCC) Take 1 tablet (40 mg) by mouth in the morning and at bedtime. 180 tablet 3 4 04/26/20 25 Discontinu ed(Reorder ) Active Problems Problem [...] get device check to assess AF burden -[id number] 3 -Continue Xarelto 20 mg daily, continue propafenone to 25 mg 3 times a day Sinus node dysfunction 10/07/2020 Assessment & Plan (11/18/2022 10:55 AM EST): - S/p PPM [employer] -We will have her scheduled for [...] Chronic obstructive lung disease 01/12/2012 Atherosclerosis of [place] co ronary artery of [place] heart without angina pectoris 01/12/2012 Assessment & [...] Encounters Date Type Department Care Team Description 04/26/2025 Refill [facility] at [facility] [address] [place] [address] Roopa Mensah MA Benign hypertensive heart disease with heart failure (CMS/HCC) 02/20/2025 11:00 AM EDT Follow-Up 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); Pain in joint of left shoulder 02/15/2025 8:20 PM EDT Ancillary Procedure [facility] [address] [place] [address] Adjustment and management of cardiac pacemaker 02/13/2025 Orders Only [facility] [address] [place] [phone] Dmitriy Mahan MD 02/08/2025 Refill [facility] at [facility] [address] [facility] [place] [address] Tina Xie MA Essential hypertension from Last 3 Months Immunizations Immunization Administration [...] [facility] [address] [place] [address] Ortega Hines MD [address] [facility]/Infectious [place] [address] Health Maintenance Due Date Last [...] - PACEMAKER Routine 02/13/2025 12:00 AM EDT from Last 3 Months Results * CARDIAC DEVICE CHECK - REMOTE - PACEMAKER (02/22/2025 12:42 PM EDT) Dmitriy Mahan MD CV IMPLANTABLE CARDIAC DEVICE MN OCEDURES Final Result CPACS * Cardiac device check - Remote pacemaker (02/13/2025 12:00 AM EDT) Anatomical Region Laterality Modality Other 02/13/2025 Dmitriy Mahan MD CV IMPLANTABLE CARDIAC DEVICE MN OCEDURES Final Result from Last 3 Months Insurance [employer] Care Teams Bacon Skinner Relationship Specialty Start Date End Date Renny Hansen MD [address] [facility] 110 [place] [address] PCP - General Internal Medicine 07/18/24 Balta Cardenas DO [address] [place] [address] Referring Physician 11/15/24
--- OUTSIDE RECORDS SUMMARY | 2025-05-02 12:48 | XMS_ITS | Encounter Summary ---
Author Organization [facility] Address [address] [place] [address] Care Team Providers Care Supply Teacher Name Role Phone Renny Hansen MD Primary Care Provider [phone] Renny Hansen MD Unavailable [phone] Lisa Ramirez LPN Unavailable Encounter Details Date Type Department Care Team (Late st Contact Info) Description 04/24/2025 External Result Encounter NOMS External Department Unsolicited Shannon Robles, BUSINESS DEVELOPMENT OFFICER 112 [facility] 110 [place] [address] Social History Tobacco Use Types Packs/Day Years [...] How often do you attend chur or yarsanism services? Patient declined 11/12/2024 Do you belong [...] Recorded Patient Health Questionnaire-2 Score 0 04/24/2025 [facility] - [...] any time in the past 12 m [facility], were you homeless or living [...] Description 05/16/2025 11:00 AM EDT [facility] 112 [facility] 110 [place] [address] Renny Hansen MD 112 [facility] 110 [place] [address] documented as of this encounter Procedures Procedure Name Priority Date/Time Associated Diagnosis Comments URINARY TRACT INFECTION (HTRX) Routine 04/24/2025 12:00 AM EDT documented in this encounter Results * (ABNORMAL) URINARY TRACT INFECTION (HTRX) (04/24/2025 12:00 AM EDT) ACINETOBACTER BAUMANII 0 19.961 - 24.689 ppm 04/25/2025 11:13 AM EDT [facility] ACINETOBACTER BAUMANII Not Detected 19.961 - 24.689 ppm 04/25/2025 11:13 AM EDT [facility] CITROBACTER FREUNDII 0 23.000 - 32.015 ppm 04/25/2025 11:13 AM EDT [facility] CITROBACTER FREUNDII Not Detected 23.000 - 32.015 ppm 04/25/2025 11:13 AM EDT [facility] ENTEROBACTER AEROGENES, CLOACAE 0 23.000 - 32.290 ppm 04/25/2025 11:13 AM EDT [facility] ENTEROBACTER AEROGENES, CLOACAE Not Detected 23.000 - 32.290 ppm 04/25/2025 11:13 AM EDT [facility] ENTEROCOCCUS FAECALIS, FAECIUM 0 26.000 - 33.043 ppm 04/25/2025 11:13 AM EDT [facility] ENTEROCOCCUS FAECALIS, FAECIUM Not Detected 26.000 - 33.043 ppm 04/25/2025 11:13 AM EDT [facility] ESCHERICHIA COLI 22.906(A) 23.000 - 28.500 ppm 04/25/2025 11:13 AM EDT [facility] ESCHERICHIA COLI Detected(A) 23.000 - 28.500 ppm 04/25/2025 11:13 AM EDT [facility] KLEBSIELLA PNEUMONIAE, OXYTOCA 0 23.000 - 31.865 ppm 04/25/2025 11:13 AM EDT [facility] KLEBSIELLA PNEUMONIAE, OXYTOCA Not Detected 23.000 - 31.865 ppm 04/25/2025 11:13 AM EDT [facility] MORGANELLA MORGANII 0 19.961 - 24.689 ppm 04/25/2025 11:13 AM EDT [facility] MORGANELLA MORGANII Not Detected 19.961 - 24.689 ppm 04/25/2025 11:13 AM EDT [facility] PROTEUS MIRABILIS, VULGARIS 0 23.000 - 28.500 ppm 04/25/2025 11:13 AM EDT [facility] PROTEUS MIRABILIS, VULGARIS Not Detected 23.000 - 28.500 ppm 04/25/2025 11:13 AM EDT [facility] PSEUDOMONAS AERUGINOSA 0 23.000 - 31.801 ppm 04/25/2025 11:13 AM EDT [facility] PSEUDOMONAS AERUGINOSA Not Detected 23.000 - 31.801 ppm 04/25/2025 11:13 AM EDT [facility] STAPHYLOCOCCUS AUREUS 0 26.000 - 31.595 ppm 04/25/2025 11:13 AM EDT [facility] STAPHYLOCOCCUS AUREUS Not Detected 26.000 - 31.595 ppm 04/25/2025 11:13 AM EDT [facility] STREPTOCOCCUS AGALACTIAE (GROUP B STREP) 0 26.000 - 32.435 ppm 04/25/2025 11:13 AM EDT [facility] STREPTOCOCCUS AGALACTIAE (GROUP B STREP) Not Detected 26.000 - 32.435 ppm 04/25/2025 11:13 AM EDT [facility] RASHID ALBICANS, PARAPSILOSIS, TROPICALIS 0 23.000 - 30.347 ppm 04/25/2025 11:13 AM EDT [facility] RASHID ALBICANS, PARAPSILOSIS, TROPICALIS Not Detected 23.000 - 30.347 ppm 04/25/2025 11:13 AM EDT [facility] RASHID GLABRATA 0 23.000 - 31.618 ppm 04/25/2025 11:13 AM EDT [facility] RASHID GLABRATA Not Detected 23.000 - 31.618 ppm 04/25/2025 11:13 AM EDT [facility] RASHID KRUSEI 0 23.000 - 30.873 ppm 04/25/2025 11:13 AM EDT [facility] RASHID KRUSEI Not Detected 23.000 - 30.873 ppm 04/25/2025 11:13 AM EDT [facility] SERRATIA MARCESCENS 0 23.000 - 31.581 ppm 04/25/2025 11:13 AM EDT [facility] SERRATIA MARCESCENS Not Detected 23.000 - 31.581 ppm 04/25/2025 11:13 AM EDT [facility] STREPTOCOCCUS PYOGENES (GROUP A STREP) 0 19.961 - 24.689 ppm 04/25/2025 11:13 AM EDT [facility] STREPTOCOCCUS PYOGENES (GROUP A STREP) Not Detected 19.961 - 24.689 ppm 04/25/2025 11:13 AM EDT [facility] STAPHYLOCOCCUS EPIDERMIDIS, HAEMOLYTICUS, LUGDUNENSIS, SAPROPHYTICUS (URINA 0 19.961 - 24.689 ppm 04/25/2025 11:13 AM EDT [facility] STAPHYLOCOCCUS EPIDERMIDIS, HAEMOLYTICUS, LUGDUNENSIS, SAPROPHYTICUS (URINA Not Detected 19.961 - 24.689 ppm 04/25/2025 11:13 AM EDT [facility] STAPHYLOCOCCUS EPIDERMIDIS, HAEMOLYTICUS, LUGDUNENSIS, SAPROPHYTICUS (URINA 0 19.961 - 24.689 ppm 04/25/2025 11:13 AM EDT [facility] STAPHYLOCOCCUS EPIDERMIDIS, HAEMOLYTICUS, LUGDUNENSIS, SAPROPHYTICUS (URINA Not Detected 19.961 - 24.689 ppm 04/25/2025 11:13 AM EDT [facility] TET B, TET M 27.112(A) 23.000 - 27.500 ppm 04/25/2025 11:13 AM EDT [facility] TET B, TET M Detected(A) 23.000 - 27.500 ppm 04/25/2025 11:13 AM EDT [facility] Urine 04/24/2025 04/25/2025 4:2 8 AM EDT us Shannon Robles BUSINESS DEVELOPMENT OFFICER LAB BLOOD ORDERABLES Final R esult [facility] [address] [id number] documented in this encounter Visit Diagnoses Not on filedocumented in this encounter Additional Health Concerns Assessment Noted Time PHQ-9 Depression Total Score: 1 09/06/20 23 2:00 PM EST documented as of this encounter Care Teams Supply Teacher Relationship Specialty Start Date End Date Renny Hansen MD [address] [place] [address] [address] PCP - General Internal Medicine 09/19/24 Renny Hansen MD [address] [place] [address] [facility] 110 [place] [address] PCP - Medical [place] 09/12/2409/11 Lisa Ramirez LPN [address] [place] [address] [address] 12/05/24 documented as of this encounter
--- OUTSIDE RECORDS SUMMARY | 2025-05-02 12:48 | XMS_ITS ---
Author Organization [facility] Address [address] [place] [address] Care Team Providers Care Jumbo Operator Name Role Phone Renny Hansen MD Primary Care Provider [phone] Renny Hansen MD Unavailable [phone] Lisa Ramirez LPN Unavailable Chronic Care Management (CCM) Status:Enrolled (Active) Start date:11/06/2024 Enrollment date:11/08/2024 Enrollment reason:Identified as high-risk Case Team Name Relationship Phone Lisa Ramirez LPN(Responsible Staff) [phone] Continued Care and Services Coordination
--- OUTSIDE RECORDS SUMMARY | 2025-05-02 12:49 | XMS_ITS | Encounter Summary ---
Author Organization [facility] Address [address] [facility] [place] [address] Care Team Providers Care Nut Roaster Name Role Phone Renny Hansen MD Primary Care Provider [phone] Renny Hansen MD Unavailable [phone] Lisa Ramirez LPN Unavailable Encounter Details Date Type Department Care Team (Late st Contact Info) Description 04/25/2025 Abstract [facility] [place] [facility] 112 [facility] 110 [place] [address] Renny Hanesn MD 112 [facility] 110 [place] [address] Social History Tobacco Use Types Packs/Day Years [...] Recorded Patient Health Questionnaire-2 Score 0 04/24/2025 [facility] - Occupational [...] time in the past 12 m [facility], were you homeless or living in [...] [place] [address] [place] [address] [place] [address] Renny Hansen MD [address] [place] [address] [place] [address] documented as of this encounter Visit Diagnoses Not on filedocumented in this encounter Additional Health Concerns Assessment Noted Time PHQ-9 Depression Total Score: 1 09/06/20 23 2:00 PM EST documented as of this encounter Care Teams Nut Roaster Relationship Specialty Start Date End Date Renny Hansen MD [address] [facility] 110 [place] [address] PCP - General Internal Medicine 09/19/24 Renny Hansen MD [address] [facility] 110 [place] [address] PCP - Medical [facility] 09/12/2409/11 Lisa Ramirez LPN [address] [address] 12/05/24 documented as of this encounter
--- OUTSIDE RECORDS SUMMARY | 2025-05-02 12:52 | XMS_ITS | CCD ---
Author Organization [facility] Care Team Providers Care Television News Anchor Name Role Phone ZANE MCGUIRE Admitting Unavailable DMITRIY HENNESSY Referring Unavailable LUISANA JOHNSON Primary Care Unavailable ZANE MCGUIRE Attending Unavailable DMITRIY HENNESSY Surgeon Unavailable AK Procedure Practitioner Unavailab Hong Adler Unavailable JOHNSON [...] LUISANA Jarquin Consulting Unavailable STEPHANIE, DR PAULA Bishpo Consulting Unavailable HAY ., DR DE LEON Admitting Unavailable HAY ., DR DE LEON Attending Unavailable JOHNSON ., DR LUISANA Jarquin Primary Care Unavailable GRECHIRENE ., DANIELLE SHAIKH Consulting Unavailpriyanka jarquin RIVER ., KAYLEY Admitting Unavailable RIVER ., KAYLEY Attending Unavailable [place], DR HONG Morgan Consulting Unavailable JOHNSON ., [...] SAMSA ., LUIZ Admitting Unavailable SAMSA ., LIUZ Attending Unavailable SAMSA ., LUIZ Consulting Unavailable JOHNSON ., DR LUISANA Jarquin Primary Care Unavailable THANG Clement Attending Provider MD Santos Denisikh Primary Care Provider THANG Clement Attending Provider Shaikh Denis MD Primary Care Provider Jair ALEXANDER Attending Unavailable SHAIKH DENIS Referring Unavailable Jair ALEXANDER Attending Unavailable MD Cira [facility] Primary Care Provider DO James Jones Attending Provider [phone] YOLY Cruz Attending Provider [phone] Luisana Johnson MD Primary Care Provider Pedro Pablo Cruz MD Unavailable [phone] LUISANA JOHNSON Primary Care Unavailable BOO BUCHANAN Attending Unavailable PEDRO PABLO CRUZ Referring Unavailable LUISANA JOHNSON Primary Care Unavailable BOO BUCHANAN Referring Unavailable Wesley Long MD Primary Care Provider Monster Calvillo NP Unavailable Shaikh Denis MD Primary Care Provider Renny Hansen MD Primary Care Provider [phone] Pedro Pablo Cruz PA-C Attending Provider [phone] Renny Hansen II Primary Care Provider Pedro Pablo Cruz PA-C Attending Provider Renny Hansen II Referring Provider [phone] Tre FITCH, Katharina Gale Attending Provider Dmitriy Duque DO Attending Provider [phone] Sakina Cardenas DO Attending Provider Hansen II, Renny Referring Provider Tre FITCH, Katharina Gale Attending Provider Renny Hansen MD Unavailable Cindi Cordova Unavailable [phone] [facility] Unavailable Unavailable Giedraitis , Andrius Vytautwilma Attending [...] HOLT Attending Unavailable SAKINA CARDENAS Referring Unavailable [facility] Lisa Unavailable DMITRIY DUQUE Attending Unavailable RENNY HANSEN Attending Unavailable JR. CARDENAS GEORGE C Attending UnavailRENNY Richard Referring Unavailable JR. CARDENAS GEORGE C Attending UnavailRENNY Richard Attending Unavailable RENNY HANSEN Attending Unavailable ELEANOR DUMONT Attending Unavailable SHANNON RUSSO Attending Unavailable JR. CARDENAS GEORGE C Attending Unavaila MONSTER Johnson Attending Unavailpriyanka e RENNY HANSEN Attending Unavailable ELEANOR DUMONT Attending Unavailable RENNY HANSEN Attending Unavailable RENNY HANSEN Attending Unavailable SALOME CID Attending Unavailable RENNY HANSEN Referring Unavailable LUISANA LEAL Attending Unavailable Sakina Cardenas Jr Admitting Unavailable Sakina Cardenas Jr Attending Unavailable Renny Hansen Primary Care Unavailable Pedro Pablo Cruz Admitting Unavailable Pedro Pablo Cruz Attending Unavailable Shaikh Denis Primary Care Unavailable Renny Hansen Primary Care Unavailable Renny Hansen Referring Unavailable Katharina [place] Admitting Unavail able Katharina [place] Attending Unavail able Pedro Pablo Cruz Admitting Unavailable Pedro Pablo Cruz Attending Unavailable Renny Hansen Primary Care Unavailable Dmitriy Duque Attending Unavailable Renny Hansen Primary Care Unavailable Dmitriy Duque Admitting Unavailable Allergies Allergy Classification Reported Allergen(s) Allergy Type Date of Onset Reaction(s) Facility NSAIDs (1 source) meloxicam; Translations: [Mobic] Drug Allergy [facility] Repository Unclassified (1 source) No Known Medication Allergies; Translations: [No Known Medication Allergies] Propensity to adverse reactions (disorder) [facility] Repository (1 source) novacaine; Translations: [novacaine] Propensity to adverse reactions (disorder) 2 [facility] Repository (20 sources) NSAIDs Propensity to adverse reactions 4 [facility] (7 sources) Adhesive agent; Translations: [adhesive] Allergy to substance 4 [facility] (4 sources) NSAIDS (Non-Steroidal Anti-Inflamma; Translations: [NSAIDS (Non-Steroidal Anti-Inflamma] Allergy to substance 4 [facility] (20 sources) Digoxin Drug Allergy 4 [facility] Work Phone: (20 sources) Wound Dressing Adhesive Drug Allergy 4 [facility] Medications Current Medications Medication Drug Class(es) Dates [...] 1 tablet by mouth at bedtime HYDROcodone-acetaminophen (Burney) 5-325 MG tablet Take 1 tablet by mouth in the morning and 1 tablet in the evening and 1 tablet before bedtime. 06/21/2024 Active Start: 04-11-2024 End: 06-15-2024 take 1 tablet by mouth three times daily as needed for pain HYDROcodone-acetaminophen (Burney) 5-325 MG tablet Indications: Chronic left shoulder [...] sources) Corticosteroid Start: 10-17-2024 End: 04-18-2025 hydrocortisone ([place]res) 0.2 % cream Indications: Phlebitis [...] / nitrofurantoin, monohydrate 75 mg oral capsule (6 sources) Nitrofuran Antibacterial Start: 04-24-2025 End: 05-01-2025 [...] Start: 02-15-2023 take 1 capsule by mo uth once daily omeprazole (PriLOSEC) [address] capsule Indications: Peptic ulcer, site unspecified, unspecified as acute or chronic, without hemorrhage or perforation , Peptic ulcer Take 1 capsule (40 mg) by mouth Daily 90 capsule 1 07/09/2024 Active take 1 capsule by mo ut every twenty-four hours Omeprazole 40 MG 1 capsule Orally Once a day Active penicillin v potassium 500 mg oral tablet (15 sources) penicillin v potassium (Veetid) 500 MG [...] Active Respiratory Therapy Supplies (Nebulizer/Tubing/Mout hpiece) kit (7 sources) Start: 04-18-20 Respiratory Therapy Supplies (Nebulizer/Tubing/Julia thpiece) kit Indications: Chronic obstructive pulmonary disease, unspecified COPD type (HCC) 1 each See administration instructions Use daily as needed per instructions on medication. 1 kit 04/18/2025 Active rOPINIRole 0.5 mg oral tablet (11 sources) Nonergot Dopamine Agonist Start: 02-19-20 End: 02-19-20 26 take 1 tablet by mouth at mealtime rOPINIRole (Requip) 0.5 MG tablet Indications: Restless Leg Syndrome Take 1 tablet (0.5 mg) by mouth in the evening. Take with meals 30 tablet 11 02/18/2025 02/18/2026 Active saccharomyces boulardii 250 mg oral capsule (7 sources) take 1 capsule by mouth in [...] Daily, # 90 tab(s), Refills(s) 0, Pharmacy: [facility]/pharmacy #[id number], 141, cm, 01/11/23 10:30:00 [...] sources) Thrombophilia; Translations: [Other thrombophilia] 07-24-2024 Chronic Conduction disorders (20 sources) Presence of cardiac [...] unspecified] 08-24-2024 Episodic Disorders of lipid metabolism (12 sources) Hyperlipidemia, unspecified; Translations: [Pure hypercholesterolemia, unspecified] [...] Onset: 3 Episodic Other aftercare (1 source) supervisor intermediates (current) use of anticoagulants; Translations: [LONG-TERM CURRNT USE 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] Onset: 3 Episodic Other aftercare (1 source) Other superintendent terminal (current) drug therapy; Translations: [OTH LONG-TERM CURRENT DRUG THERAPY] Onset: 3 Episodic Other [...] chronic pain] Chronic Other nervous system disorders (16 sources) Chronic low back pain; Translations: [Other [...] without obstruction or gangrene] Onset: 10-17-2023 Episodic Complication of device; implant or graft (19 sources) 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; Translations: [Pain due to internal orthopedic prosthetic devices, implants and grafts, initial encounter] Onset: 10-24-2024 05-22-2024 Episodic Deficiency and other anemia (20 sources) [...] Translations: [Dysphagia, unspecified] Episodic Other gastrointestinal disorders (8 sources) Occult blood in stools; Translations: [Other [...] Onset: 01-12-2012 09-06-2023 Episodic Residual codes; unclassified (9 sources) H/O: Disorder; Translations: [Personal history of [...] Test Name Value Interpretation Reference Range Facility No Panel Informationon 04-25 STAPHYLOCOCCUS EPIDERMIDIS, HAEMOLYTICUS, LUGDUNENSIS, SAPROPHYTICUS (URINA 0 [facility] STAPHYLOCOCCUS EPIDERMIDIS, HAEMOLYTICUS, LUGDUNENSIS, SAPROPHYTICUS (URINA Not detected [facility] URINARY TRACT INFECTION (HTR X)on 04-25-2025 ACINETOBACTER BAUMANII 0 [facility] ACINETOBACTER BAUMANII Not detected [facility] RASHID ALBICANS, PARAPSILOSIS, TROPICALIS 0 [facility] RASHID ALBICANS, PARAPSILOSIS, TROPICALIS Not detected [facility] RASHID GLABRATA 0 [facility] RASHID GLABRATA Not detected [facility] RASHID KRUSEI 0 [facility] RASHID KRUSEI Not detected [facility] CITROBACTER FREUNDII 0 [facility] CITROBACTER FREUNDII Not detected NO [facility] Healthcare ENTEROBACTER AEROGENES, CLOACAE 0 [facility] ENTEROBACTER AEROGENES, CLOACAE Not detected [facility] ENTEROCOCCUS FAECALIS, FAECIUM 0 [facility] ENTEROCOCCUS FAECALIS, FAECIUM Not detected [facility] ESCHERICHIA COLI 22.906 Abnormal [facility] ESCHERICHIA COLI Detected Abnormal [facility] Interpretation and review of laboratory results Abnormal [facility] KLEBSIELLA PNEUMONIAE, OXYTOCA 0 [facility] KLEBSIELLA PNEUMONIAE, OXYTOCA Not detected [facility] MORGANELLA MORGANII 0 [facility] MORGANELLA MORGANII Not detected [facility] PROTEUS MIRABILIS, VULGARIS 0 [facility] PROTEUS MIRABILIS, VULGARIS Not detected [facility] PSEUDOMONAS AERUGINOSA 0 [facility] PSEUDOMONAS AERUGINOSA Not detected [facility] SERRATIA MARCESCENS 0 [facility] SERRATIA MARCESCENS Not detected [facility] STAPHYLOCOCCUS AUREUS 0 [facility] STAPHYLOCOCCUS AUREUS Not detected [facility] STREPTOCOCCUS AGALACTIAE (GROUP B STREP) 0 [facility] STREPTOCOCCUS AGALACTIAE (GROUP B STREP) Not detected [facility] STREPTOCOCCUS PYOGENES (GROUP A STREP) 0 [facility] STREPTOCOCCUS PYOGENES (GROUP A STREP) Not detected [facility] TET B, TET M 27.112 Abnormal [facility] TET B, TET M Detected Abnormal [facility] ALL CBC WITH AUTO DIFFon BASOPHILS ABSOLUTE AUTO 0.1 [facility] Basophils/100 WBC (Bld) 0.6 % 0.2 - 2.0 % [facility] Eosinophils/100 WBC (Bld) 2.2 % 0.9 - 7.0 % [facility] Erythrocyte distribution width (RBC) [Ratio] 16.6 % High 11.0 - 15.0 % [facility] Hematocrit (Bld) [Volume fraction] 26.4 % Low 36.0 - 48.0 % [facility] Hemoglobin (Bld) [Mass/Vol] 7.9 g/dL Low 12.0 - 16.0 g/dL [facility] IMMATURE GRANULOCYTES ABS AUTO 0.02 [facility] Immature granulocytes/100 WBC (Bld) 0.2 % 0.0 - 0.5 % [facility] Interpretation and review of laboratory results Abnormal [facility] LYMPHOCYTES ABSOLUTE AUTO 2 [facility] Lymphocytes/100 WBC (Bld) 23.5 % 20.5 - 60.0 % [facility] MCH (RBC) [Entitic mass] 22.3 pg Low 26.7 - 34.0 pg [facility] MCHC (RBC) [Mass/Vol] 29.9 g/dL 29.9 - 35.2 g/dL [facility] MCV (RBC) [Entitic vol] 74.6 fL Low 81.0 - 99.0 fL [facility] MONOCYTES ABSOLUTE AUTO 0.6 [facility] Monocytes/100 WBC (Bld) 7.1 % 1.7 - 12.0 % [facility] NEUTROPHILS ABSOLUTE AUTO 5.7 [facility] Neutrophils/100 WBC (Bld) 66.4 % 43.0 - 75.0 % [facility] Platelet mean volume (Bld) [Entitic vol] 8.7 fL Low 9.5 - 13.5 fL [facility] [address] [facility] RBC 3.54 Low [facility] TB WBC 8.6 [facility] Urinalysis macro (dipstick) panel (U)on 04-24-2025 Bilirubin, UA Negative Negative - 4(70) +++ mg/dL [facility] Blood, UA Positive Negative - 50 Shadi/mcL [facility] Clarity, UA Clear [facility] Color, UA Yellow [facility] Glucose, UA Negative Negative - 2000(110) ++++ mg/dL [facility] Interpretation and review of laboratory results Abnormal [facility] Ketones, UA Negative Negative - 160(16) ++++ mg/dL [facility] Leukocytes, UA Negative Negative - 500+++ Rosette/mcL [facility] Nitrite, UA Negative Negative - Positive [facility] pH, UA 6 5 - 9 [facility] Protein, UA Negative Negative - 2000(20) ++++ mg/dL [facility] Spec Grav, UA 1.05 1 - 1.03 [facility] Urobilinogen, UA 0.2 0.2 - 12 mg/dL [facility] ALL BASIC METABOLIC PANELon 02-21-2025 Anion gap [Moles/Vol] 13.7 mmol/L [facility] Calcium [Mass/Vol] 9.3 mg/dL 8.5 - 10. 1 mg/dL [facility] Chloride [Moles/Vol] 100 mmol/L 98 - 10 7 mmol/L [facility] CO2 [Moles/Vol] 27.6 mmol/L 21.0 - 32.0 mmol/L [facility] Creatinine [Mass/Vol] 0.78 mg/dL 0.55 - 1.02 mg/dL [facility] GFR/1.73 sq M.predicted CKD-EPI (S/P/Bld) [Vol rate/Area] >60 >=60 mL/min/1.73m 2 [facility] Glucose [Mass/Vol] 100 mg/dL 74 - 106 mg/dL [facility] Interpretation and review of laboratory results Abnormal [facility] Potassium [Moles/Vol] 4.3 mmol/L 3.5 - 5.1 mmol/L [facility] Sodium [Moles/Vol] 137 mmol/L 136 - 145 mmol/L [facility] TBH EGFR-NON AF IRANIAN >60 >=60 mL/min/1.73m 2 [facility] Urea nitrogen [Mass/Vol] 22 mg/dL High 7.0 - 18.0 mg/dL [facility] Urea nitrogen/Creatinine [Mass ratio] 28.2 mg/mg [facility] ALL C REACTIVE PROTEINon CRP [Mass/Vol] mg/L NINF - 0.50 mg/dL [facility] No Panel Informationon 02-21 [facility] Follow-Upon 02-20-2025 Follow-Up [id number] Oliver Starks 1945 F Date Provider Department Center 02/20/2025 JAIR BOLAND [facility] INF Carol Ann Ramos Family History Adopted: Yes Family history unknown: Yes Family Status - Relation Status Age at Mother Father Level of Service:69660 [place] OFFICE/OUTPATIENT ESTABLISHED MOD MDM [address] [facility] Orders Onlyon 02-13-2025 Orders Only [id number] Oliver Starks da T 1945 F Date Provider Department Center 02/13/2025 DMITRIY IVERSON [facility] Family History Adopted: Yes Family history unknown: Yes Family Status - Relation Status Age at Mother Father [facility] 36on 01-18-2025 38 I called the patient . Labs are okay. Continue penicillin. [facility] Telephoneon 01-18-2025 Telephone [id number] Oliver Starks da T 1945 F Date Provider Department Center 01/18/2025 JAIR BOLAND [facility] INF Carol Ann Heal Family History Adopted: Yes Family history unknown: Yes Family Status - Relation Status Age at Mother Father [facility] BASIC METABOLIC PANELon 05 Anion gap [Moles/Vol] 10 mmol/L Normal 7-20 [facility] Comment on above: Performed By: #### L [id number] #### [facility] (BEAKER) [address] [place] [address] Calcium [Mass/Vol] 8.9 mg/dL Normal 8.6-10.3 [facility] Comment on above: Performed By: #### L [id number] #### [facility] (BEAKER) [address] [place] [address] Chloride [Moles/Vol] 103 mmol/L Normal 98-107 [facility] Comment on above: Performed By: #### L [id number] #### [facility] (BEAKER) [address] [place] [address] CO2 [Moles/Vol] 26 mmol/L Normal 21-31 [facility] Comment on above: Performed By: #### L [id number] #### [facility] ([facility]) [address] [place] [address] Creatinine [Mass/Vol] 0.64 mg/dL Normal 0.60-1.20 [facility] Comment on above: Performed By: #### L [id number] #### [facility] ([facility]) [address] [place] [address] GLOMERULAR FILTRATION RATE ML/MIN/1.73 SQ M.PREDICTED 91.0 mL/min/1.73m*2 Normal >60.0 [facility] Comment on above: Result Comment: [facility]???s estimated glomerular filtration rate (eGFR) will [...] individuals. Performed By: #### L [id number] #### [facility] ([facility]) [address] [place] [address] Glucose [Mass/Vol] 92 mg/dL Normal 70-100 [facility] Comment on above: Performed By: #### L [id number] #### [facility] ([facility]) [address] [place] [address] Potassium [Moles/Vol] 4.1 mmol/L Normal 3.5-5.1 [facility] Comment on above: Performed By: #### L [id number] #### [facility] ([facility]) [address] [place] [address] Sodium [Moles/Vol] 135 mmol/L Low 136-145 [facility] Comment on above: Performed By: #### L [id number] #### [facility] ([facility]) [address] [place] [address] Urea nitrogen [Mass/Vol] 17 mg/dL Normal 7-25 [facility] Comment on above: Performed By: #### L [id number] #### [facility] ([facility]) [address] [place] [address] UREA NITROGEN/CREATININE (MASS RATIO) IN SER/PLAS 26.6 Normal [facility] Comment on above: Performed By: #### L [id number] #### [facility] ([facility]) [address] [place] [address] C-REACTIVE PROTEINon 025 C REACTIVE PROTEIN (MG/L) IN SER/PLAS 6.8 mg/L High <=5.0 [facility] Comment on above: Result Comment: Test ing performed using a new methodology, turbidimetry. Normal ranges have been updated. Old normal range was <8 mg/L. Performed By: #### L [id number] ####[facility] ([facility])[address] [place] [address] CBC WITH AUTO DIFFERENTIALon 01-17-2025 Basophils (Bld) [#/Vol] 0.07 10*3/uL Normal 0.00-0.20 [facility] Comment on above: Performed By: #### L [id number] ####[facility] ([facility])[address] [place] [address] Basophils/100 WBC (Bld) 0.9 % Normal 0.0-1.0 [facility] Comment on above: Performed By: #### L [id number] ####[facility] ([facility])[address] [place] [address] Eosinophils (Bld) [#/Vol] 0.16 10*3/uL Normal 0.00-0.50 [facility] Comment on above: Performed By: #### L [id number] ####[facility] [place] [address] Eosinophils/100 WBC (Bld) 2.2 % Normal 0.0-6.0 [facility] Comment on above: Performed By: #### L [id number] ####[facility] ([facility])[address] [place] [address] Erythrocyte distribution width (RBC) [Ratio] 18.4 % High 11.5-15.0 [facility] Comment on above: Performed By: #### L [id number] ####[facility] ([facility])[address] [place] [address] ERYTHROCYTE MEAN CORPUSCULAR HEMOGLOBIN CONCENTRATION (G/DL) BY AUTOMATED 29.6 g/dL Low 32.0-35.0 [facility] Comment on above: Performed By: #### L [id number] ####[facility] ([facility])[address] [place] [address] Hematocrit (Bld) [Volume fraction] 33.1 % Low 36.0-45.0 [facility] Comment on above: Performed By: #### L [id number] ####[facility] ([facility])[address] [place] [address] Hemoglobin (Bld) [Mass/Vol] 9.8 g/dL Low 12.0-15.0 [facility] Comment on above: Performed By: #### L [id number] ####[facility] ([facility])[address] [place] [address] Immature granulocytes (Bld) [#/Vol] 0.02 10*3/uL Normal 0.00-0.20 [facility] Comment on above: Performed By: #### L [id number] ####[facility] ([facility])[address] [place] [address] Immature granulocytes/100 WBC (Bld) 0.3 % Normal 0.0-1.0 [facility] Comment on above: Performed By: #### L [id number] ####[facility] ([facility])[address] [place] [address] Lymphocytes (Bld) [#/Vol] 1.32 10*3/uL Normal 1.20-4.00 [facility] Comment on above: Performed By: #### L [id number] ####[facility] (BEAKER)[address] [place] [address] Lymphocytes/100 WBC (Bld) 17.9 % Low 20.0-45.0 [facility] Comment on above: Performed By: #### L [id number] ####[facility] (BEAKER)[address] [place] [address] MCH (RBC) [Entitic mass] 25.1 pg Low 27.0-33.0 [facility] Comment on above: Performed By: #### L [id number] ####[facility] (BEAKER)[address] [place] [address] MCV (RBC) [Entitic vol] 84.7 fL Normal 82.0-98.0 [facility] Comment on above: Performed By: #### L [id number] ####[facility] (BEAKER)[address] [place] [address] Monocytes (Bld) [#/Vol] 0.50 10*3/uL Normal 0.10-1.00 [facility] Comment on above: Performed By: #### L [id number] ####[facility] (BEAKER)[address] [place] [address] Monocytes/100 WBC (Bld) 6.8 % Normal 5.0-12.0 [facility] Comment on above: Performed By: #### L [id number] ####[facility] (BEAKER)[address] [place] [address] Neutrophils (Bld) [#/Vol] 5.32 10*3/uL Normal 1.60-7.60 [facility] Comment on above: Performed By: #### L [id number] ####[facility] ([facility]AKER)[address] [place] [address] Neutrophils/100 WBC (Bld) 71.9 % Normal 40.0-72.0 [facility] Comment on above: Performed By: #### L [id number] ####[facility] (BEAKER)[address] [place] [address] NRBC (PER 100 WBCS) BY AUTOMATED COUNT 0.0 % Normal 0 [facility] Comment on above: Performed By: #### L [id number] ####[facility] ([facility] [place] [address] PLATELETS (10*3/UL) IN BLOOD AUTOMATED COUNT 338 10*3/uL Normal 150-400 [facility] Comment on above: Performed By: #### L [id number] ####[facility] ([facility])[address] [place] [address] RBC (Bld) [#/Vol] 3.91 10*6/uL Normal 3.80-5.00 [facility] Comment on above: Performed By: #### L [id number] ####[facility] (BEAKER)[address] [place] [address] WBC (Bld) [#/Vol] 7.39 10*3/uL Normal 4.00-10.60 [facility] Comment on above: Performed By: #### L [id number] ####[facility] [place] [address] Office Visiton 01-17-2025 Follow-up visit [id number] Oliver Starks 1945 F Date Provider Department Center 01/17/2025 JAIR BOLAND [facility] Carol Ann [facility] Family History Adopted: Yes Family history unknown: Yes Family Status - Relation Status Age at Mother Father Level of Service:23938 [place] OFFICE/OUTPATIENT NEW HIGH MDM 60 MINUTES Reason for Visit and Comments: New Patient [632] Normal [facility] Orders Onlyon 01-17-2025 Orders Only [id number] Oliver Starks da Jonah 1945 F Date Provider Department Center 01/17/2025 MEHREEN BRAY [facility] DERM [facility] Family History Adopted: Yes Family history unknown: Yes Family Status - Relation Status Age at Mother Father Normal [facility] 36on 01-07-2025 36 Advised patient to take 25mg of spirolactone. Patient advised she has 50mg tablet and will cut them in 2 until they are gone, then she will call for a new script. Normal [facility] Telephoneon 01-07-2025 Telephone [id number] Oliver Starks 1945 F Date Provider Department Center 01/07/2025 IDALIAKARINA [facility] INF Carol Ann He[facility] Family History Adopted: Yes Family history unknown: Yes Family Status - Relation Status Age at Mother Father Normal [facility] Telephoneon 01-04-2025 Telephone [id number] Oliver Starks 1945 F Date Provider Department Center 01/04/2025 [id number]-JANHGXBQOIJOSEPH HARRY AMISH Lubin Family History Adopted: Yes Family history unknown: Yes Family Status - Relation Status Age at Mother Father Normal [facility] US axillaon 01-03-2025 US axilla [facility] [place] [address] Ultrasound Report Signed Patient: Breann Starks MR#: [id number] 171 : 1945 Acct:[id number] Age/Sex: 79 / F ADM Date: 01/03/25 Loc: Room: Type: [facility] Attending Dr: Katharina Toledo APRN Ordering Provider: [...] Dimitrios Blanco M.D.01/03/2025 3:42 PM Dictation Location: [facility] Tech: Ghazal Cannones Transcribed By: STAR 01/03/25 1542 Dictated By: Dimitrios Blanco MD 01/03/25 1532 Signed By: 01/03/25 1542 Normal [facility] Follow-Upon 01-01-2025 Follow-Up [id number] Oliver Starks edgar Egan 1945 F Date Provider Department Center 01/01/2025 DEREK NEUMANN [facility] Family History Adopted: Yes Family history unknown: Yes Family Status - Relation Status Age at Mother Father Level of Service:89283 [place] OFFICE/OUTPATIENT ESTABLISHED LOW MDM 20 MIN (GC) Reason for Visit and Comments: Follow-up [581472] Pain [136] Normal [facility] Office Visiton 12-24-2024 Follow-up visit [id number] Oliver Starks Jonah 1945 F Date Provider Department Center 12/24/2024 KOLTON YAP AMISH Ram[facility]rez [facility] Family History Adopted: Yes Family history unknown: Yes Family Status - Relation Status Age at Mother Father Level of Service:01051 [place] OFFICE/OUTPATIENT ESTABLISHED MOD MDM 30 MIN Reason for Visit and Comments: Coronary Artery Disease [187] Hypertension [918962] Congestive Heart Failure [127] Hyperlipidemia [182] 3 month follow up [Other] Normal [facility] ALL BASIC METABOLIC PANELon 12-21-2024 Anion gap [Moles/Vol] 11.7 mmol/L [facility] Calcium [Mass/Vol] 9.1 mg/dL 8.5 - 10. 1 mg/dL [facility] Chloride [Moles/Vol] 100 mmol/L 98 - 10 7 mmol/L [facility] CO2 [Moles/Vol] 27.4 mmol/L 21.0 - 32.0 mmol/L [facility] Creatinine [Mass/Vol] 0.98 mg/dL 0.55 - 1.02 mg/dL [facility] GFR/1.73 sq M.predicted CKD-EPI (S/P/Bld) [Vol rate/Area] >60 >=60 mL/min/1.73m 2 [facility] Glucose [Mass/Vol] 114 mg/dL High 74 - 106 mg/dL [facility] Interpretation and review of laboratory results Abnormal [facility] Potassium [Moles/Vol] 4.1 mmol/L 3.5 - 5.1 mmol/L [facility] Sodium [Moles/Vol] 135 mmol/L Low 136 - 145 mmol/L [facility] TBH EGFR-NON AF IRANIAN 55 Low >=60 mL/min/1.73m 2 [facility] Urea nitrogen [Mass/Vol] 22 mg/dL High 7.0 - 18.0 mg/dL [facility] Urea nitrogen/Creatinine [Mass ratio] 22.4 mg/mg [facility] C-REACTIVE PROTEINon 025 C REACTIVE PROTEIN (MG/L) IN SER/PLAS 9.6 mg/L High <=5.0 [facility] Comment on above: Result Comment: Test ing performed using a new methodology, turbidimetry. Normal ranges have been updated. Old normal range was <8 mg/L. Performed By: #### L [id number] #### [facility] ([facility]) [address] [place] [address] CBC WITH AUTO DIFFERENTIALon 11-27-2024 Basophils (Bld) [#/Vol] 0.07 10*3/uL Normal 0.00-0.20 [facility] Comment on above: Performed By: #### L [id number] #### [facility] ([facility]) [address] [place] [address] Basophils/100 WBC (Bld) 0.7 % Normal 0.0-1.0 [facility] Comment on above: Performed By: #### L [id number] #### [facility] ([facility]) [address] [facility] [place] [address] Eosinophils (Bld) [#/Vol] 0.13 10*3/uL Normal 0.00-0.50 [facility] Comment on above: Performed By: #### L [id number] #### [facility] ([facility]) [address] [place] [address] Eosinophils/100 WBC (Bld) 1.2 % Normal 0.0-6.0 [facility] Comment on above: Performed By: #### L [id number] #### [facility] ([facility]) [address] [place] [address] Erythrocyte distribution width (RBC) [Ratio] 17.0 % High 11.5-15.0 [facility] Comment on above: Performed By: #### L [id number] #### [facility] ([facility]) [address] [place] [address] ERYTHROCYTE MEAN CORPUSCULAR HEMOGLOBIN CONCENTRATION (G/DL) BY AUTOMATED 30.8 g/dL Low 32.0-35.0 [facility] Comment on above: Performed By: #### L [id number] #### [facility] ([facility]) [address] [place] [address] Hematocrit (Bld) [Volume fraction] 38.6 % Normal 36.0-45.0 [facility] Comment on above: Performed By: #### L [id number] #### [facility] ([facility]) [address] [place] [address] Hemoglobin (Bld) [Mass/Vol] 11.9 g/dL Low 12.0-15.0 [facility] Comment on above: Performed By: #### L [id number] #### [facility] ([facility]) [address] [place] [address] Immature granulocytes (Bld) [#/Vol] 0.15 10*3/uL Normal 0.00-0.20 [facility] Comment on above: Performed By: #### L [id number] #### [facility] ([facility]) [address] [place] [address] Immature granulocytes/100 WBC (Bld) 1.4 % High 0.0-1.0 [facility] Comment on above: Performed By: #### L [id number] #### [facility] ([facility]) [address] [place] [address] Lymphocytes (Bld) [#/Vol] 2.18 10*3/uL Normal 1.20-4.00 [facility] Comment on above: Performed By: #### L [id number] #### [facility] ([facility] [address] [place] [address] Lymphocytes/100 WBC (Bld) 20.4 % Normal 20.0-45.0 [facility] Comment on above: Performed By: #### L [id number] #### [facility] ([facility]) [address] [address] MCH (RBC) [Entitic mass] 26.0 pg Low 27.0-33.0 [facility] Comment on above: Performed By: #### L [id number] #### [facility] ([facility]) [address] [place] [address] MCV (RBC) [Entitic vol] 84.5 fL Normal 82.0-98.0 [facility] Comment on above: Performed By: #### L [id number] #### [facility] ([facility]ER) [address] [place] [address] Monocytes (Bld) [#/Vol] 0.84 10*3/uL Normal 0.10-1.00 [facility] Comment on above: Performed By: #### L [id number] #### [facility] ([facility]) [address] [place] [address] Monocytes/100 WBC (Bld) 7.9 % Normal 5.0-12.0 [facility] Comment on above: Performed By: #### L [id number] #### [facility] ([facility]ER) [address] [place] [address] Neutrophils (Bld) [#/Vol] 7.33 10*3/uL Normal 1.60-7.60 [facility] Comment on above: Performed By: #### L [id number] #### [facility] ([facility]) [address] [place] [address] Neutrophils/100 WBC (Bld) 68.4 % Normal 40.0-72.0 [facility] Comment on above: Performed By: #### L [id number] #### [facility] ([facility]) [address] [place] [address] NRBC (PER 100 WBCS) BY AUTOMATED COUNT 0.0 % Normal 0 [facility] Comment on above: Performed By: #### L [id number] #### [facility] ([facility]) [address] [place] [address] PLATELETS (10*3/UL) IN BLOOD AUTOMATED COUNT 411 10*3/uL High 150-400 [facility] Comment on above: Performed By: #### L [id number] #### [facility] ([facility]) [address] [place] [address] RBC (Bld) [#/Vol] 4.57 10*6/uL Normal 3.80-5.00 [facility] Comment on above: Performed By: #### L [id number] #### [facility] ([facility]) [address] [place] [address] WBC (Bld) [#/Vol] 10.70 10*3/uL High 4.00-10.60 [facility] Comment on above: Performed By: #### L [id number] #### [facility] ([facility]) [address] [place] [address] Follow-Upon 11-27-2024 Follow-Up [id number] Oliver Starks 1945 F Date Provider Department Center 11/27/2024 DEREK NEUMANN MP [facility] MPORTHO Family History Adopted: Yes Family history unknown: Yes Family Status - Relation Status Age at Mother Father Level of Service:32200 [place] OFFICE/OUTPATIENT ESTABLISHED LOW MDM 20 MIN Reason for Visit and Comments: Follow-up [287758] Normal [facility] Labon 11-27-2024 Lab [id number] Oliver Starks da T 1945 F Date Provider Department Center 11/27/2024 2244-[facility] MP LAB RESOURCE MP LEATHA [place] Family History Adopted: Yes Family history unknown: Yes Family Status - Relation Status Age at Mother Father Normal [facility] SEDIMENTATION RATEon 025 SEDIMENTATION RATE, ERYTHROCYTE 96 mm/hr High <30 [facility] Comment on above: Performed By: #### L [id number] #### [facility] ([facility]) [address] [place] [address] Orders Onlyon 11-19-2024 Orders Only [id number] Bob Starksai da T 1945 F Date Provider Department Center 11/19/2024 829-JAMES ALLEN MP ORTHO MPORTHO Family History Adopted: Yes Family history unknown: Yes Family Status - Relation Status Age at Mother Father Normal [facility] Orders Onlyon 11-16-2024 Orders Only [id number] Bob Starksai da T 1945 F Date Provider Department Center 11/16/2024 34839-OEWWBXIVYTAIIVAN COHEN ORTHO MPORTDENISSE Family History Adopted: Yes Family history unknown: Yes Family Status - Relation Status Age at Mother Father [facility] 36on 11-15-2024 36 Patient was informed and she is going to [address] [place] d and states they do not have a radiologist to do the aspiration for the order sent over by Dr. Holt and patient will have to go somewhere else. Normal [facility] BODY FLUID CULTUREon 025 Bacteria identified Cx Nom (Unsp spec) STREPTOCOCCUS SANGUINIS Abnormal [facility] Comment on above: Result Comment: Isol ated from Broth Culture Streptococcus sanguinis Presumptive Identification Performed By: #### L [id number] ####[facility] ([facility]AKER)[address] [place] [address] GRAM STAIN RESULT Normal [facility] Comment on above: Result Comment: Many Polymorphonuclear leukocytes No organisms seen Performed By: #### L [id number] ####[facility] ([facility]ER)[address] [place] [address] Office Visiton 11-13-2024 Follow-up visit [id number] Oliver Starks da T 1945 F Date Provider Department Center 11/13/2024 DEREK NEUMANN MP ORTHO MPORTHO Family History Adopted: Yes Family history unknown: Yes Family Status - Relation Status Age at Mother Father Level of Service:71009 [place] OFFICE/OUTPATIENT NEW LOW MDM 30 MINUTES (25,GC) Reason for Visit and Comments: Pain [136] Normal [facility] Orders Onlyon 11-13-2024 Orders Only [id number] Oliver Starks da T 1945 F Date Provider Department Center 11/13/2024 62459-UMMHWBZHWMARIELOS MARY MP ORTHO MPORTHO Family History Adopted: Yes Family history unknown: Yes Family Status - Relation Status Age at Mother Father Normal [facility] 36on 11-08-2024 36 Patient was schedule Normal [facility] 36 Patient needs an elisabet t layla poss infection per dr cardenas. INFORMATION SERVICES MANAGER to dr holt. Normal [facility] Anisocytosis LM Ql (Bld)Orde red By: Sakina Cardenas on 10-24-2024 Anisocytosis Ql (Bld) Anisocytosis [Presence] in Blood by Light microscopy [facility] Basophils Auto (Bld) [#/Vol] Ordered By: Sakina Cardenas on 10-24-2024 Basophils (Bld) [#/Vol] Automated basophil count [facility] Basophils/100 WBC Auto (Bld) Ordered By: Sakina Cardenas on 10-24-2024 Basophils/100 WBC (Bld) Automated basophil % [facility] Basophils/100 WBC Manual cnt (Bld)Ordered By: Sakina Cardenas on 10-24-2024 Basophils/100 WBC (Bld) Basophils/100 leukocytes in Blood by Manual count 0-2 [facility] C reactive protein [Mass/vol ume] in Serum or PlasmaOrdered By: Sakina Cardenas on 10-24-2024 CRP [Mass/Vol] C reactive protein [Mass/volume] in Serum or Plasma High 0.0-0.5 [facility] C-Reactive Proteinon 025 C-Reactive Protein 1.4 mg/dL High 0.0-0.5 [facility] Comment on above: Result Comment: PERF ORMED BY: [address] [place] [address] PATHOLOGIST DIRECTOR OF ARCHITECTURE KATHLEEN RAMOS M.D. Performed By: #### C RP #### [address] CRP [Mass/Vol]on 10-24-2024 C-REACTIVE PROTEIN 1.4 mg/dL High 0.0 - 0.5 mg/dL [facility] Interpretation and review of laboratory results Abnormal [facility] Healthcare [facility] Healthcare Diff and CBCon 10-24-2024 Anisocytosis Ql (Bld) Slight Normal [facility] Comment on above: Performed By: #### D IFF CBC, ESR #### [place] [address] [place] Basophils/100 WBC (Bld) 2 % Normal 0-2 [facility] Comment on above: Performed By: #### D IFF CBC, ESR #### [address] Erythrocyte distribution width (RBC) [Ratio] 23.9 % High 11.9-15.3 [facility] Comment on above: Performed By: #### D IFF CBC, ESR #### [facility] [address] [place] [address] Giant Platelet Tally 1 /100{WBC} Normal [facility] Comment on above: Performed By: #### D IFF CBC, ESR #### [place] [id number] [facility] Hematocrit (Bld) [Volume fraction] 35.1 % Normal 34.0-46.4 [facility] Comment on above: Performed By: #### D IFF CBC, ESR #### [place] [id number] [place] Hemoglobin (Bld) [Mass/Vol] 11.4 g/dL Low 11.8-15.4 [facility] Comment on above: Performed By: #### D IFF CBC, ESR #### [facility] [address] Hypochromasia Slight Normal [facility] Comment on above: Performed By: #### D IFF CBC, ESR #### [facility] [address] [place] [address] Lymphocytes/100 WBC (Bld) 19 % Normal 18-42 [facility] Comment on above: Performed By: #### D IFF CBC, ESR #### [facility] [address] [place] [address] MCH (RBC) [Entitic mass] 26.9 pg Normal 24.7-34.3 [facility] Comment on above: Performed By: #### D IFF CBC, ESR #### [address] MCV (RBC) [Entitic vol] 83.2 fL Normal 80-100 [facility] Comment on above: Performed By: #### D IFF CBC, ESR #### [address] Mean Corpuscular HGB Conc 32.4 g/dL Normal 32.0-35.0 [facility] Comment on above: Performed By: #### D IFF CBC, ESR #### [address] Monocytes/100 WBC (Bld) 6 % Normal 2-11 [facility] Comment on above: Performed By: #### D IFF CBC, ESR #### [facility] [address] [place] [address] Platelet Estimate Normal Normal Normal [facility] Comment on above: Performed By: #### D IFF CBC, ESR #### [facility] [address] [place] [address] Platelet mean volume (Bld) [Entitic vol] 7.0 fL Normal 6.3-10.7 [facility] Comment on above: Performed By: #### D IFF CBC, ESR #### [facility] [address] Platelet Morphology Normal Normal Normal [facility] Comment on above: Performed By: #### D IFF CBC, ESR #### [facility] [address] [place] [address] [place] Platelets (Bld) [#/Vol] 403 10*3/uL Normal 150-450 [facility] Comment on above: Performed By: #### D IFF CBC, ESR #### [facility] [address] [place] [address] [place] Polychromasia Moderate Normal [facility] Comment on above: Performed By: #### D IFF CBC, ESR #### [facility] [address] [place] [address] [place] RBC (Bld) [#/Vol] 4.21 10*6/uL Normal 3.60-5.00 [facility] Comment on above: Performed By: #### D IFF CBC, ESR #### [facility] [address] RBC morphology finding Nom (Bld) Normal Normal Normal [facility] Comment on above: Performed By: #### D IFF CBC, ESR #### [facility] [address] [place] [address] [place] Segmented neutrophils/100 WBC (Bld) 73 % High 50-70 [facility] Comment on above: Performed By: #### D IFF CBC, ESR #### [facility] [address] [place] [address] [place] WBC (Bld) [#/Vol] 11.0 10*3/uL Normal 3.8-11.6 [facility] Comment on above: Performed By: #### D IFF CBC, ESR #### [facility] [address] [place] [address] [place] Eosinophils Auto (Bld) [#/Vo l]Ordered By: Sakina Cardenas on 10-24-2024 Eosinophils (Bld) [#/Vol] Automated eosinophil count [facility] Eosinophils/100 WBC Auto (Bl d)Ordered By: Sakina Cardenas on 10-24-2024 Eosinophils/100 WBC (Bld) Automated eosinophil % [facility] Erythrocyte Sedimentation Ra aren 10-24-2024 ESR (Bld) [Velocity] 104 mm/h High 0-29 [facility] Comment on above: Result Comment: PERF ORMED BY: [facility] [address] [facility] [place] [id number] PATHOLOGIST DIRECTOR OF ARCHITECTURE KATHLEEN RAMOS M.D. Performed By: #### D IFF CBC, ESR ####[facility] [address] [place] [address] [facility] Erythrocyte distribution wid th Auto (RBC) [Ratio]Ordered By: Sakina Cardenas on 10-24-2024 Erythrocyte distribution width (RBC) [Ratio] Erythrocyte distribution width [Ratio] by Automated count High 11.9-15.3 [facility] Erythrocyte morphology findi ng [Identifier] in BloodOrdered By: Sakina Cardenas on 10-24-2024 RBC morphology finding Nom (Bld) RBC morphology Normal [facility] Erythrocyte sedimentation ra te by Photometric methodOrdered By: Sakina Cardenas on 10-24-2024 ESR Photometric method (Bld) [Velocity] Erythrocyte sedimentation rate by Photometric method High 0-29 [facility] Giant platelets/100 leukocyt es [Ratio] in Blood by Manual countOrdered By: Sakina Cardenas on 10-24-2024 Giant platelets/100 WBC Manual cnt (Bld) [Ratio] Giant platelets/100 leukocytes [Ratio] in Blood by Manual count [facility] Hematocrit Auto (Bld) [Volum e fraction]Ordered By: Sakina Cardenas on 10-24-2024 Hematocrit (Bld) [Volume fraction] Hematocrit [Volume Fraction] of Blood by Automated count 34.0-46.4 [facility] Hemoglobin [Mass/volume] in BloodOrdered By: Sakina Cardenas on 10-24-2024 Hemoglobin (Bld) [Mass/Vol] Hemoglobin [Mass/volume] in Blood Low 11.8-15.4 [facility] Hypochromia LM Ql (Bld)Order ed By: Sakina Cardenas on 10-24-2024 Hypochromia Ql (Bld) Hypochromia [Presen ce] in Blood by Light microscopy [facility] Laboratory - Hematology and Cell countson 10-24-2024 Erythrocyte distribution width (RBC) [Ratio] 23.9 % High 11.9 - 15.3 % [facility] ESR (Bld) [Velocity] 104 mm/h High 0 - 29 [facility] Hematocrit (Bld) [Volume fraction] 35.1 % 34.0 - 46.4 % [facility] Hemoglobin (Bld) [Mass/Vol] 11.4 g/dL Low 11.8 - 15.4 g/dL [facility] MCH (RBC) [Entitic mass] 26.9 pg 24.7 - 34.3 pg [facility] MCHC (RBC) [Mass/Vol] 32.4 g/dL 32.0 - 35.0 g/dL [facility] MCV (RBC) [Entitic vol] 83.2 fL 80 - 100 fL [facility] Platelet mean volume (Bld) [Entitic vol] 7 fL 6.3 - 10.7 fL [facility] Platelets (Bld) [#/Vol] 403 10*3/uL 150 - 450 10*3/uL [facility] WBC (Bld) [#/Vol] 11 10*3/uL 3.8 - 11.6 10*3/uL [facility] Laboratory - Urinalysison RBC LM.HPF (Urine sed) [#/Area] 4.21 10*6/uL 3.60 - 5.00 10*6/uL [facility] WBC LM.HPF (Urine sed) [#/Area] 11 10*3/uL 3.8 - 11.6 10*3/uL [facility] Leukocytes [#/volume] correc aristeo for nucleated erythrocytes in Blood by Automated counOrdered By: Sakina Cardenas on 10-24-2024 WBC corrected for nucl RBC Auto (Bld) [#/Vol] Leukocytes [#/volume] corrected for nucleated erythrocytes in Blood by Automated coun 3.8-11.6 [facility] Lymphocytes Auto (Bld) [#/Vo l]Ordered By: Sakina Cardenas on 10-24-2024 Lymphocytes (Bld) [#/Vol] Lymphocytes [#/volume] in Blood by Automated count [facility] Lymphocytes/100 WBC Auto (Bl d)Ordered By: Sakina Cardenas on 10-24-2024 Lymphocytes/100 WBC (Bld) Lymphocytes/100 leukocytes in Blood by Automated count [facility] Lymphocytes/100 WBC Manual c nt (Bld)Ordered By: Sakina Cardenas on 10-24-2024 Lymphocytes/100 WBC (Bld) Lymphocytes/100 leukocytes in Blood by Manual count 18-42 [facility] MCH Auto (RBC) [Entitic mass ]Ordered By: Sakina Cardenas on 10-24-2024 MCH (RBC) [Entitic mass] MCH [Entitic mass] by Automated count 24.7-34.3 [facility] MCHC Auto (RBC) [Mass/Vol]Or dered By: Sakina Cardenas on 10-24-2024 MCHC (RBC) [Mass/Vol] MCHC [Mass/volume] by Automated count 32.0-35.0 [facility] MCV Auto (RBC) [Entitic vol] Ordered By: Sakina Cardenas on 10-24-2024 MCV (RBC) [Entitic vol] MCV [Entitic volume] by Automated count 80-100 [facility] Monocytes Auto (Bld) [#/Vol] Ordered By: Sakina Cardenas on 10-24-2024 Monocytes (Bld) [#/Vol] Automated blood monocyte count [facility] Monocytes/100 WBC Auto (Bld) Ordered By: Sakina Cardenas on 10-24-2024 Monocytes/100 WBC (Bld) Automated monocyte % [facility] Monocytes/100 WBC Manual cnt (Bld)Ordered By: Sakina Cardenas on 10-24-2024 Monocytes/100 WBC (Bld) Monocytes/100 leukocytes in Blood by Manual count 2-11 [facility] Neutrophils Auto (Bld) [#/Vo l]Ordered By: Sakina Cardenas on 10-24-2024 Neutrophils (Bld) [#/Vol] Neutrophils [#/volume] in Blood by Automated count [facility] Neutrophils/100 WBC Auto (Bl d)Ordered By: Sakina Cardenas on 10-24-2024 Neutrophils/100 WBC (Bld) Automated neutrophil % [facility] No Panel Informationon 10-24 Interpretation and review of laboratory results Abnormal [facility] Nucleated erythrocytes [Pres ence] in Blood by Automated countOrdered By: Sakina Cardenas on 10-24-2024 Nucleated RBC Auto Ql (Bld) Nucleated erythrocytes [Presence] in Blood by Automated count [facility] Platelet adequacy [Presence] in Blood by Light microscopyOrdered By: Sakina Cardenas on 10-24-2024 Platelets LM Ql (Bld) Platelet adequacy [Presence] in Blood by Light microscopy Normal [facility] Platelet mean volume Auto (B ld) [Entitic vol]Ordered By: Sakina Cardenas on 10-24-2024 Platelet mean volume (Bld) [Entitic vol] Platelet mean volume [Entitic volume] in Blood by Automated count 6.3-10.7 [facility] Platelet morphology finding [Identifier] in BloodOrdered By: Sakina Cardenas on 10-24-2024 Platelet morphology finding Nom (Bld) Platelet morphology finding [Identifier] in Blood Normal [facility] Platelets Auto (Bld) [#/Vol] Ordered By: Sakina Cardenas on 10-24-2024 Platelets (Bld) [#/Vol] Platelets [#/volume] in Blood by Automated count 150-450 [facility] Polychromasia [Presence] in Blood by Light microscopyOrdered By: Sakina Cardenas on 10-24-2024 Polychromasia LM Ql (Bld) Polychromasia [Presence] in Blood by Light microscopy [facility] RBC Auto (Bld) [#/Vol]Ordere d By: Sakina Cardenas on 10-24-2024 RBC (Bld) [#/Vol] Erythrocytes [#/volume] in Blood by Automated count 3.60-5.00 [facility] Segmented neutrophils/100 WB C Manual cnt (Bld)Ordered By: Sakina Cardenas on 10-24-2024 Segmented neutrophils/100 WBC (Bld) Manual blood segmented neutrophils/100 leukocytes High 50-70 [facility] WBC Auto (Bld) [#/Vol]Ordere d By: Sakina Cardenas on 10-24-2024 WBC (Bld) [#/Vol] Leukocytes [#/volume ] in Blood by Automated count 3.8-11.6 [facility] MM diagnostic mammo BI w/CAD on 10-16-2024 MM diagnostic mammo BI w/CAD [place] [id number] Ultrasound Report Signed Patient: Breann Starks MR#: [id number] : 1945 Acct:[id number] Age/Sex: 78 / F ADM Date: 10/16/24 Loc: PRICILA Room: Type: [facility] Attending Dr: Dmitriy Duque DO Ordering Provider: Dmitriy Duque DO Date of Service: 10/16/24 US/US axilla: R92.8 ([id number]) MM/MM diagnostic mammo BI w/CAD: ENLARGED LT AXILLARY LYMPH NODE Copies to: Dmitriy Duqeu DO CLINICAL DATA: Abnormal lymph node seen [...] Benton Jr., D.OMeena10/16/2024 2:20 PM Dictation Location: [facility] Tech: Ghazal Barber Transcribed By: STAR 10/16/24 1420 Dictated By: Francisco J Benton Jr, DO 10/16/24 1343 Signed By: 10/16/24 1420 Normal [facility] 36on 10-11-2024 36 Regarding labs [...] BMP in 1 week. 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 She verbalized understanding. Normal [facility] CA ECHO DOPPLER COMPLETEon 0 10-09-2024 [place] [address] Cardiology Report Signed Patient: BREANN STARKS MR#: [id number] : 1945 Acct:[id number] Age/Sex: 78 / F ADM Date: 10/09/24 Loc: CARD Attending Dr: Kolton Altman M.D. Ordering Physician: Kolton Altman M.D. Date of Service: 10/09/24 Procedure(s): CA echo doppler complete Accession Number(s): [id number] cc: RENNY HANSEN ; Kolton Altman M.D. Patient Name: BREANN STARKS MR#: [id number] : 1945 Exam Date: 10/09/2024 Ordering Doctor: [...] Area (VTI): 1.49 cm2, 1.49 cm2 Deceleration Oliver: 1.68 m/s2 Pressure Half-Time: 622.32 ms Peak [...] by: Sakina Evans (more content not included)... [facility] Radiology, Radiologist, MD - 10/09/2024 [place] [address] Cardiology Report Signed Patient: BREANN STARKS MR#: [id number] : 1945 Acct:[id number] Age/Sex: 78 / F ADM Date: 10/09/24 Loc: CARD Attending Dr: Kolton Altman M.D. Ordering Physician: Kolton Altman M.D. Date of Service: 10/09/24 Procedure(s): CA echo doppler complete Accession Number(s): [id number] cc: RENNY HANSEN ; Kolton Altman M.D. 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 1 mg/dL [facility] Chloride [Moles/Vol] 104 mmol/L 98 - 10 7 mmol/L [facility] CO2 [Moles/Vol] 27.8 mmol/L 21.0 - 32.0 mmol/L [facility] Creatinine [Mass/Vol] 0.73 mg/dL 0.55 - 1.02 mg/dL [facility] GFR/1.73 sq M.predicted CKD-EPI (S/P/Bld) [Vol rate/Area] >60 >=60 mL/min/1.73m 2 [facility] Glucose [Mass/Vol] 97 mg/dL 74 - 106 mg/dL [facility] Potassium [Moles/Vol] 4.2 mmol/L 3.5 - 5.1 mmol/L [facility] Sodium [Moles/Vol] 140 mmol/L 136 - 145 mmol/L [facility] EGFR-NON AF IRANIAN >60 >=60 mL/min/1.73m 2 [facility] Urea nitrogen [Mass/Vol] 16 mg/dL 7.0 - 18.0 mg/dL [facility] Urea nitrogen/Creatinine [Mass ratio] 21.9 mg/mg [facility] ALL LIPID PROFILE (FASTING)o n 10-03-2024 CHOL HDL RATIO 2.2 [facility] Comment on above: 3.3 - 4.4 LOW RISK 4.4 - 7.1 AVERAGE RISK 7.1 - 11.0 MODERATE RISK >11.0 HIGH RISK Cholesterol [Mass/Vol] 130 mg/dL NINF - 200 mg/dL [facility] Cholesterol in HDL [Mass/Vol] 59 mg/dL 40 - 60 mg/dL [facility] Comment on above: > or =60 mg/dl - LOW CARDIOVASCULAR RISK <40 mg/dl - HIGH CARDIOVASCULAR RISK Magnesium [Mass/Vol] 56.8 mg/dL [facility] Comment on above: <100 mg/dl OPTIMAL 100-129 mg/dl NEAR OR ABOVE OPTIMAL 130-159 mg/dl BORDERLINE HIGH 160-189 mg/dl HIGH >190 mg/dl VERY HIGH Magnesium [Mass/Vol] 14.2 mg/dL [facility] Triglyceride [Mass/Vol] 71 mg/dL NINF - 150 mg/dL [facility] No Panel Informationon 10-03 [facility] Anisocytosis LM Ql (Bld)Orde red By: Katharina Toledo on 10-02-2024 Anisocytosis Ql (Bld) Anisocytosis [Presence] in Blood by Light microscopy [facility] Basophils Auto (Bld) [#/Vol] Ordered By: Katharina Toledo on 10-02-2024 Basophils (Bld) [#/Vol] Automated basophil count 0.0-0.2 [facility] Basophils/100 WBC Auto (Bld) Ordered By: Katharina Toledo on 10-02-2024 Basophils/100 WBC (Bld) Automated basophil % . [facility] CT shoulder LT w conon 10-02 CT shoulder LT w con [facility] [place] [address] CT Scan Report Signed Patient: Breann Starks MR#: [id number] : 1945 Acct:[id number] Age/Sex: 78 / F ADM Date: 10/02/24 Loc: Room: Type: [facility] Attending Dr: Katharina Toledo APRN Copies to: [...] Etienne Rhodes M.D.10/02/2024 4:14 PM Dictation Location: [place] [address] Transcribed By: [facility] 10/02/24 1614 Dictated By: Etienne Rhodes DO 10/02/24 1610 Signed By: 10/02/24 1614 Normal [facility] Creatinine (Bld) [Mass/Vol]O rdered By: Katharina Toledo on 10-02-2024 Creatinine [Mass/Vol] Whole blood creati nine measurement 0.6-1.3 [facility] Comment on above: ER/ESD physician is notified/shown all ISTAT results.Critical values may be confirmed by laboratory testing ifdeemed necessary by ER attending doctor. Eosinophils Auto (Bld) [#/Vo l]Ordered By: Katharina Toledo on 10-02-2024 Eosinophils (Bld) [#/Vol] Automated eosinophil count 0.0-0.45 [facility] Eosinophils/100 WBC Auto (Bl d)Ordered By: Katharina Tre on 10-02-2024 Eosinophils/100 WBC (Bld) Automated eosinophil % . [facility] Erythrocyte distribution wid th Auto (RBC) [Ratio]Ordered By: Katharina Toledo on 10-02-2024 Erythrocyte distribution width (RBC) [Ratio] Erythrocyte distribution width [Ratio] by Automated count High 11.9-15.3 [facility] Erythrocyte morphology findi ng [Identifier] in BloodOrdered By: Katharina Toledo on 10-02-2024 RBC morphology finding Nom (Bld) RBC morphology [facility] Ferritinon 10-02-2024 Ferritin [Mass/Vol] 54.8 ng/mL Normal 11.0-306.8 [facility] Comment on above: Result Comment: PERF ORMED BY: [place] [address] PATHOLOGIST DIRECTOR OF ARCHITECTURE KATHLEEN RAMOS M.D. Performed By: #### S CAN CBC, FE and TIBC, ARISTIDES #### [address] Ferritin [Mass/volume] in Se rum or PlasmaOrdered By: Katharina Tre on 10-02-2024 Ferritin [Mass/Vol] Ferritin [Mass/volum e] in Serum or Plasma 11.0-306.8 [facility] Hematocrit Auto (Bld) [Volum e fraction]Ordered By: Katharina Jaegerbrandy on 10-02-2024 Hematocrit (Bld) [Volume fraction] Hematocrit [Volume Fraction] of Blood by Automated count Low 34.0-46.4 [facility] Hemoglobin [Mass/volume] in BloodOrdered By: Katharina Tre on 10-02-2024 Hemoglobin (Bld) [Mass/Vol] Hemoglobin [Mass/volume] in Blood Low 11.8-15.4 [facility] Hypochromia LM Ql (Bld)Order ed By: Katharina Tre on 10-02-2024 Hypochromia Ql (Bld) Hypochromia [Presen ce] in Blood by Light microscopy [facility] ISTAT XRAY CREon 10-02-2024 Creatinine [Mass/Vol] 0.7 mg/dL 0.6 - 1.3 mg/dL [facility] Comment on above: ER/ESD physician is notified/shown all ISTAT results. Critical values may be confirmed by laboratory testing if deemed necessary by ER attending doctor. ISTAT GFR [facility] ISTAT XRay CRE 10-02-2024 Creatinine [Mass/Vol] 0.7 mg/dL Normal 0.6-1.3 [facility] Comment on above: Result Comment: ER/E SD physician is notified/shown all ISTAT results. Critical values may be confirmed by laboratory testing if deemed necessary by ER attending doctor. Performed By: #### I SCRE #### [facility] [address] [place] [address] ISTAT GFR >60.0 Normal [facility] Comment on above: Result Comment: PERF ORMED BY: [place] [address] PATHOLOGIST DIRECTOR OF ARCHITECTURE KATHLEEN RAMOS M.D. Performed By: #### I SCRE #### [facility] [address] [place] [address] Iron [Mass/volume] in Serum or PlasmaOrdered By: Katharina Toledo on 10-02-2024 Iron [Mass/Vol] Iron [Mass/volume] i n Serum or Plasma Low 50-212 [facility] Iron and TIBC Profileon 09-13 % Iron Saturation 8.7 % Low 20-50 [facility] Comment on above: Performed By: #### S CAN CBC, FE and TIBC, ARISTIDES #### [facility] [address] Iron [Mass/Vol] 36 ug/dL Low 50-212 [facility] Comment on above: Performed By: #### S CAN CBC, FE and TIBC, ARISTIDES #### [facility] [address] Total Iron Binding Capacity 413 ug/dL Normal 255-450 [facility] Comment on above: Performed By: #### S CAN CBC, FE and TIBC, ARISTIDES #### [facility] [address] Transferrin [Mass/Vol] 295 mg/dL Normal 203-362 [facility] Comment on above: Performed By: #### S CAN CBC, FE and TIBC, ARISTIDES #### [facility] [address] Leukocytes [#/volume] correc aristeo for nucleated erythrocytes in Blood by Automated counOrdered By: Katharina Toledo on 10-02-2024 WBC corrected for nucl RBC Auto (Bld) [#/Vol] Leukocytes [#/volume] corrected for nucleated erythrocytes in Blood by Automated coun 3.8-11.6 [facility] Lymphocytes Auto (Bld) [#/Vo l]Ordered By: Katharina Toledo on 10-02-2024 Lymphocytes (Bld) [#/Vol] Lymphocytes [#/volume] in Blood by Automated count 1.00-4.8 [facility] Lymphocytes/100 WBC Auto (Bl d)Ordered By: Katharina Toledo on 10-02-2024 Lymphocytes/100 WBC (Bld) Lymphocytes/100 leukocytes in Blood by Automated count . [facility] MCH Auto (RBC) [Entitic mass ]Ordered By: Katharina Toledo on 10-02-2024 MCH (RBC) [Entitic mass] MCH [Entitic mass] by Automated count 24.7-34.3 [facility] MCHC Auto (RBC) [Mass/Vol]Or dered By: Katharina Toledo on 10-02-2024 MCHC (RBC) [Mass/Vol] MCHC [Mass/volume] by Automated count 32.0-35.0 [facility] MCV Auto (RBC) [Entitic vol] Ordered By: Katharina Toledo on 10-02-2024 MCV (RBC) [Entitic vol] MCV [Entitic volume] by Automated count 80-100 [facility] Microcytes LM Ql (Bld)Ordere d By: Katharina Toledo on 10-02-2024 Microcytes Ql (Bld) Microcytes [Presence ] in Blood by Light microscopy [facility] Monocytes Auto (Bld) [#/Vol] Ordered By: Katharina Toledo on 10-02-2024 Monocytes (Bld) [#/Vol] Automated blood monocyte count 0.0-0.8 [facility] Monocytes/100 WBC Auto (Bld) Ordered By: Katharina Toledo on 10-02-2024 Monocytes/100 WBC (Bld) Automated monocyte % . [facility] Neutrophils Auto (Bld) [#/Vo l]Ordered By: Katharina Toledo on 10-02-2024 Neutrophils (Bld) [#/Vol] Neutrophils [#/volume] in Blood by Automated count 1.8-7.7 [facility] Neutrophils/100 WBC Auto (Bl d)Ordered By: Katharina Toledo on 10-02-2024 Neutrophils/100 WBC (Bld) Automated neutrophil % . [facility] No Panel InformationOrdered By: Katharina Toledo on 10-02-2024 Bedside Estimated GFR (eGFR) > 60.0 [facility] Nucleated erythrocytes [Pres ence] in Blood by Automated countOrdered By: Katharina Toledo on 10-02-2024 Nucleated RBC Auto Ql (Bld) Nucleated erythrocytes [Presence] in Blood by Automated count 0-0.5 [facility] Platelet adequacy [Presence] in Blood by Light microscopyOrdered By: Katharina Toledo on 10-02-2024 Platelets LM Ql (Bld) Platelet adequacy [Presence] in Blood by Light microscopy Normal [facility] Platelet mean volume Auto (B ld) [Entitic vol]Ordered By: Katharina Tre on 10-02-2024 Platelet mean volume (Bld) [Entitic vol] Platelet mean volume [Entitic volume] in Blood by Automated count 6.3-10.7 [facility] Platelet morphology finding [Identifier] in BloodOrdered By: Katharina Toledo on 10-02-2024 Platelet morphology finding Nom (Bld) Platelet morphology finding [Identifier] in Blood Normal [facility] Platelets Auto (Bld) [#/Vol] Ordered By: Katharina Toledo on 10-02-2024 Platelets (Bld) [#/Vol] Platelets [#/volume] in Blood by Automated count 150-450 [facility] Polychromasia [Presence] in Blood by Light microscopyOrdered By: Katharina Toledo on 10-02-2024 Polychromasia LM Ql (Bld) Polychromasia [Presence] in Blood by Light microscopy [facility] RBC Auto (Bld) [#/Vol]Ordere d By: Katharina Toledo on 10-02-2024 RBC (Bld) [#/Vol] Erythrocytes [#/volume] in Blood by Automated count 3.60-5.00 [facility] Scan and CBCon 10-02-2024 Anisocytosis Ql (Bld) Marked Normal [facility] Comment on above: Performed By: #### S CAN CBC, FE and TIBC, ARISTIDES #### [facility] [address] [place] [address] [place] Basophils (Bld) [#/Vol] 0.1 10*3/uL Normal 0.0-0.2 [facility] Comment on above: Performed By: #### S CAN CBC, FE and TIBC, ARISTIDES #### [facility] [address] [place] [address] [place] Basophils/100 WBC (Bld) 0.8 % Normal . [facility] Comment on above: Performed By: #### S CAN CBC, FE and TIBC, ARISTIDES #### [facility] [address] [place] [address] [place] Eosinophils (Bld) [#/Vol] 0.2 10*3/uL Normal 0.0-0.45 [facility] Comment on above: Performed By: #### S CAN CBC, FE and TIBC, ARISTIDES #### [address] Eosinophils/100 WBC (Bld) 2.3 % Normal . [facility] Comment on above: Performed By: #### S CAN CBC, FE and TIBC, ARISTIDES #### [address] Erythrocyte distribution width (RBC) [Ratio] 29.3 % High 11.9-15.3 [facility] Comment on above: Performed By: #### S CAN CBC, FE and TIBC, ARISTIDES #### [address] Hematocrit (Bld) [Volume fraction] 33.0 % Low 34.0-46.4 [facility] Comment on above: Performed By: #### S CAN CBC, FE and TIBC, ARISTIDES #### [address] Hemoglobin (Bld) [Mass/Vol] 10.6 g/dL Low 11.8-15.4 [facility] Comment on above: Performed By: #### S CAN CBC, FE and TIBC, ARISTIDES #### [address] Hypochromasia Slight Normal [facility] Comment on above: Performed By: #### S CAN CBC, FE and TIBC, ARISTIDES #### [address] Lymphocytes (Bld) [#/Vol] 1.4 10*3/uL Normal 1.00-4.8 [facility] Comment on above: Performed By: #### S CAN CBC, FE and TIBC, ARISTIDES #### [address] Lymphocytes/100 WBC (Bld) 15.8 % Normal . [facility] Comment on above: Performed By: #### S CAN CBC, FE and TIBC, ARISTIDES #### [address] MCH (RBC) [Entitic mass] 26.6 pg Normal 24.7-34.3 [facility] Comment on above: Performed By: #### S CAN CBC, FE and TIBC, ARISTIDES #### [address] MCV (RBC) [Entitic vol] 83.1 fL Normal 80-100 [facility] Comment on above: Performed By: #### S CAN CBC, FE and TIBC, ARISTIDES #### [address] Mean Corpuscular HGB Conc 32.0 g/dL Normal 32.0-35.0 [facility] Comment on above: Performed By: #### S CAN CBC, FE and TIBC, ARISTIDES #### [address] Microcytosis Slight Normal [facility] Comment on above: Performed By: #### S CAN CBC, FE and TIBC, ARISTIDES #### [address] Monocytes (Bld) [#/Vol] 0.6 10*3/uL Normal 0.0-0.8 [facility] Comment on above: Performed By: #### S CAN CBC, FE and TIBC, ARISTIDES #### [address] Monocytes/100 WBC (Bld) 7.3 % Normal . [facility] Comment on above: Performed By: #### S CAN CBC, FE and TIBC, ARISTIDES #### [address] Neutrophils (Bld) [#/Vol] 6.4 10*3/uL Normal 1.8-7.7 [facility] Comment on above: Performed By: #### S CAN CBC, FE and TIBC, ARISTIDES #### [address] Neutrophils/100 WBC (Bld) 73.8 % Normal . [facility] Comment on above: Performed By: #### S CAN CBC, FE and TIBC, ARISTIDES #### [address] NRBC% 0.0 /100{WBC} Normal 0-0.5 [facility] Comment on above: Performed By: #### S CAN CBC, FE and TIBC, ARISTIDES #### [address] Platelet Estimate Normal Normal Normal [facility] Comment on above: Performed By: #### S CAN CBC, FE and TIBC, ARISTIDES #### [address] Platelet mean volume (Bld) [Entitic vol] 6.9 fL Normal 6.3-10.7 [facility] Comment on above: Performed By: #### S CAN CBC, FE and TIBC, ARISTIDES #### [address] Platelet Morphology Normal Normal Normal [facility] Comment on above: Result Comment: PERF ORMED BY: [place] [address] PATHOLOGIST DIRECTOR OF ARCHITECTURE KATHLEEN RAMOS M.D. Performed By: #### S CAN CBC, FE and TIBC, ARISTIDES #### [address] Platelets (Bld) [#/Vol] 337 10*3/uL Normal 150-450 [facility] Comment on above: Performed By: #### S CAN CBC, FE and TIBC, ARISTIDES #### [address] Polychromasia Slight Normal [facility] Comment on above: Performed By: #### S CAN CBC, FE and TIBC, ARISTIDES #### [address] RBC (Bld) [#/Vol] 3.98 10*6/uL Normal 3.60-5.00 [facility] Comment on above: Performed By: #### S CAN CBC, FE and TIBC, ARISTIDES #### [facility] [address] WBC (Bld) [#/Vol] 8.7 10*3/uL Normal 3.8-11.6 [facility] Comment on above: Performed By: #### S CAN CBC, FE and TIBC, ARISTIDES #### [facility] [address] Serum or plasma iron binding capacity measurement (mass/volume)Ordered By: Katharina Toledo on 10-02-2024 Iron binding capacity [Mass/Vol] Iron binding capacity [Mass/volume] in Serum or Plasma 255-450 [facility] Serum or plasma iron saturat ion measurement (mass fraction)Ordered By: Katharina Toledo on 10-02-2024 Iron saturation [Mass fraction] Iron saturation [Mass Fraction] in Serum or Plasma Low 20-50 [facility] Transferrin [Mass/volume] in Serum or PlasmaOrdered By: Katharina Toledo on 10-02-2024 Transferrin [Mass/Vol] Transferrin [Mass/volume] in Serum or Plasma 203-362 [facility] WBC Auto (Bld) [#/Vol]Ordere d By: Katharina Toledo on 10-02-2024 WBC (Bld) [#/Vol] Leukocytes [#/volume ] in Blood by Automated count 3.8-11.6 [facility] Office Visiton 09-24-2024 Follow-up visit [id number] Oliver Starks 1945 F Date Provider Department Center 09/24/2024 [id number]-[facility]ULRWKOLTON ALTMAN [facility] Family History Adopted: Yes Family history unknown: Yes Family Status - Relation Status Age at Mother Father Level of Service:12604 [place] OFFICE/OUTPATIENT ESTABLISHED MOD MDM 30 MIN Reason for Visit and Comments: Atrial Fibrillation [80] - Denies palpitations, lightheadedness/syncop e, and bleeding on Eliquis. Congestive Heart Failure [127] severe pulmonary hypertension [Other] - Denies chest pain and SOB. Edema [[id number]] - NOT taking lasix currently due to no LE edema. Normal [facility] Urinalysis macro (dipstick) panel (U)on 09-19-2024 Bilirubin, UA Negative Negative - 4(70) +++ mg/dL [facility] Blood, UA Positive Negative - 50 Shadi/mcL [facility] Clarity, UA Cloudy [facility] Color, UA Dark Sara [facility] Glucose, UA Negative Negative - 1999(110) ++++ mg/dL [facility] [facility] Interpretation and review of laboratory results Abnormal [facility] Ketones, UA Positive Negative - 160(16) ++++ mg/dL [facility] Leukocytes, UA Moderate Negative - 500+++ Rosette/mcL [facility] Nitrite, UA Negative Negative - Positive [facility] pH, UA 5 5 - 9 [facility] Protein, UA 3+ Negative - 1999(20) ++++ mg/dL [facility] Spec Grav, UA 1.3 1 - 1.03 [facility] Urobilinogen, UA 0.2 0.2 - 12 mg/dL [facility] C reactive protein [Mass/vol ume] in Serum or PlasmaOrdered By: Pedro Pablo Cruz on 08-24-2024 CRP [Mass/Vol] C reactive protein [Mass/volume] in Serum or Plasma High 0.0-0.5 [facility] C-Reactive Proteinon 024 C-Reactive Protein 1.1 mg/dL High 0.0-0.5 [facility] Comment on above: Result Comment: PERF ORMED BY: [facility] [address] [place] [address] PATHOLOGIST DIRECTOR OF ARCHITECTURE KATHLEEN RAMOS M.D. Performed By: #### C RP ####[facility] [place] [address] [facility] CBC W Auto Differential pane l (Bld)on 08-24-2024 Basophils (Bld) [#/Vol] 0.1 10*3/uL 0.0 - 0.2 10*3/uL [facility] Basophils/100 WBC Manual cnt (Syn fld) 0.9 % . [facility] Eosinophils (Bld) [#/Vol] 0.2 10*3/uL 0.0 - 0.45 10*3/uL [facility] Eosinophils/100 WBC Manual cnt (Syn fld) 2.6 % . [facility] Erythrocyte distribution width (RBC) [Ratio] 19.3 % High 11.9 - 15.3 % [facility] Hematocrit (Bld) [Volume fraction] 28.2 % Low 34.0 - 46.4 % [facility] Hemoglobin (Bld) [Mass/Vol] 8.6 g/dL Low 11.8 - 15.4 g/dL [facility] Interpretation and review of laboratory results Abnormal [facility] Lymphocytes (Bld) [#/Vol] 2.1 10*3/uL 1.00 - 4.8 10*3/uL [facility] Lymphocytes/100 WBC Manual cnt (Syn fld) 23.5 % . [facility] MCH (RBC) [Entitic mass] 21.8 pg Low 24.7 - 34.3 pg [facility] MCHC (RBC) [Mass/Vol] 30.4 g/dL Low 32.0 - 35.0 g/dL [facility] MCV (RBC) [Entitic vol] 71.9 fL Low 80 - 100 fL [facility] Monocytes (Bld) [#/Vol] 0.6 10*3/uL 0.0 - 0.8 10*3/uL [facility] Monocytes+Macrophages /100 WBC Manual cnt (Syn fld) 6.8 % . [facility] Neutrophils (Bld) [#/Vol] 5.9 10*3/uL 1.8 - 7.7 10*3/uL [facility] Neutrophils/100 WBC Manual cnt (Syn fld) 66.2 % . [facility] NRBC 0 /100{WBC} 0 - 0.5 /100{WBC} [facility] Platelet mean volume (Bld) [Entitic vol] 6.9 fL 6.3 - 10.7 fL [facility] Platelets (Bld) [#/Vol] 345 10*3/uL 150 - 450 10*3/uL [facility] RBC LM.HPF (Urine sed) [#/Area] 3.93 10*6/uL 3.60 - 5.00 10*6/uL [facility] WBC (Bld) [#/Vol] 8.9 10*3/uL 3.8 - 11.6 10*3/uL [facility] WBC LM.HPF (Urine sed) [#/Area] 8.9 10*3/uL 3.8 - 11.6 10*3/uL [facility] Complete Blood Count Auto Di ffon 08-24-2024 Basophils (Bld) [#/Vol] 0.1 10*3/uL Normal 0.0-0.2 [facility] Comment on above: Result Comment: PERF ORMED BY: [address] [place] [address] PATHOLOGIST DIRECTOR OF ARCHITECTURE KATHLEEN RAMOS M.D. Performed By: #### F ER, [id number], CBC, FE and TIBC ####[address] Basophils/100 WBC (Bld) 0.9 % Normal . [facility] Comment on above: Performed By: #### F ER, [id number], CBC, FE and TIBC ####[address] Eosinophils (Bld) [#/Vol] 0.2 10*3/uL Normal 0.0-0.45 [facility] Comment on above: Performed By: #### F ER, [id number], CBC, FE and TIBC ####[address] Eosinophils/100 WBC (Bld) 2.6 % Normal . [facility] Comment on above: Performed By: #### F ER, [id number], CBC, FE and TIBC ####[address] Erythrocyte distribution width (RBC) [Ratio] 19.3 % High 11.9-15.3 [facility] Comment on above: Performed By: #### F ER, [id number], CBC, FE and TIBC ####[address] Hematocrit (Bld) [Volume fraction] 28.2 % Low 34.0-46.4 [facility] Comment on above: Performed By: #### F ER, [id number], CBC, FE and TIBC ####[address] Hemoglobin (Bld) [Mass/Vol] 8.6 g/dL Low 11.8-15.4 [facility] Comment on above: Performed By: #### F ER, [id number], CBC, FE and TIBC ####[address] Lymphocytes (Bld) [#/Vol] 2.1 10*3/uL Normal 1.00-4.8 [facility] Comment on above: Performed By: #### F ER, [id number], CBC, FE and TIBC ####[address] Lymphocytes/100 WBC (Bld) 23.5 % Normal . [facility] Comment on above: Performed By: #### F ER, [id number], CBC, FE and TIBC ####[address] MCH (RBC) [Entitic mass] 21.8 pg Low 24.7-34.3 [facility] Comment on above: Performed By: #### F ER, [id number], CBC, FE and TIBC ####[address] MCV (RBC) [Entitic vol] 71.9 fL Low 80-100 [facility] Comment on above: Performed By: #### F ER, [id number], CBC, FE and TIBC ####[address] Mean Corpuscular HGB Conc 30.4 g/dL Low 32.0-35.0 [facility] Comment on above: Performed By: #### F ER, [id number], CBC, FE and TIBC ####[address] Monocytes (Bld) [#/Vol] 0.6 10*3/uL Normal 0.0-0.8 [facility] Comment on above: Performed By: #### F ER, [id number], CBC, FE and TIBC ####[address] Monocytes/100 WBC (Bld) 6.8 % Normal . [facility] Comment on above: Performed By: #### F ER, [id number], CBC, FE and TIBC ####[address] Neutrophils (Bld) [#/Vol] 5.9 10*3/uL Normal 1.8-7.7 [facility] Comment on above: Performed By: #### F ER, [id number], CBC, FE and TIBC ####[address] Neutrophils/100 WBC (Bld) 66.2 % Normal . [facility] Comment on above: Performed By: #### F ER, [id number], CBC, FE and TIBC ####[address] NRBC% 0.0 /100{WBC} Normal 0-0.5 [facility] Comment on above: Performed By: #### F ER, [id number], CBC, FE and TIBC ####[address] Platelet mean volume (Bld) [Entitic vol] 6.9 fL Normal 6.3-10.7 [facility] Comment on above: Performed By: #### F ER, [id number], CBC, FE and TIBC ####[address] Platelets (Bld) [#/Vol] 345 10*3/uL Normal 150-450 [facility] Comment on above: Performed By: #### F ER, [id number], CBC, FE and TIBC ####[address] RBC (Bld) [#/Vol] 3.93 10*6/uL Normal 3.60-5.00 [facility] Comment on above: Performed By: #### F ER, [id number], CBC, FE and TIBC ####[place] [address] [address] WBC (Bld) [#/Vol] 8.9 10*3/uL Normal 3.8-11.6 [facility] Comment on above: Performed By: #### F ER, [id number], CBC, FE and TIBC ####[address] Erythrocyte Sedimentation Ra aren 08-24-2024 ESR (Bld) [Velocity] 103 mm/h High 0-29 [facility] Comment on above: Result Comment: PERF ORMED BY: [place] [address] PATHOLOGIST DIRECTOR OF ARCHITECTURE KATHLEEN RAMOS M.D. Performed By: #### E SR #### [address] Erythrocyte sedimentation ra te by Photometric methodOrdered By: Pedro Pablo Cruz on 08-24-2024 ESR Photometric method (Bld) [Velocity] Erythrocyte sedimentation rate by Photometric method High 0-29 [facility] Ferritinon 08-24-2024 Ferritin [Mass/Vol] 8.6 ng/mL Low 11.0-306.8 [facility] Comment on above: Performed By: #### F ER, [id number], CBC, FE and TIBC ####[address] Folate [Mass/volume] in Seru m or PlasmaOrdered By: Katharina Toledo on 08-24-2024 Folate [Mass/Vol] Folate [Mass/volume] in Serum or Plasma >5.9 [facility] Comment on above: Folate reference ran ge: >5.9 ng/mlThe WHO technical consultation on folate and vitamin [id number] has determined that folate concentrations lessthan 4 ng/ml are considered deficient. Iron and TIBC Profileon 08-12 % Iron Saturation 3.2 % Low 20-50 [facility] Comment on above: Performed By: #### F ER, [id number], CBC, FE and TIBC ####[address] Iron [Mass/Vol] 14 ug/dL Low 50-212 [facility] Comment on above: Performed By: #### F ER, [id number], CBC, FE and TIBC ####[address] Total Iron Binding Capacity 437 ug/dL Normal 255-450 [facility] Comment on above: Performed By: #### F ER, [id number], CBC, FE and TIBC ####[address] Transferrin [Mass/Vol] 312 mg/dL Normal 203-362 [facility] Comment on above: Performed By: #### F ER, [id number], CBC, FE and TIBC ####[address] Vit. B12/Folate Profileon Cobalamin (Vitamin B12) [Mass/Vol] 417 pg/mL Normal 180-914 [facility] Comment on above: Performed By: #### F ER, [id number], CBC, FE and TIBC ####[address] Folate 28.0 ng/mL Normal >5.9 [facility] Comment on above: Result Comment: Nayely te reference range: >5.9 ng/ml The WHO technical consultation on folate and vitamin b12 deficiencies has determined that folate concentrations less than 4 ng/ml are considered deficient. PERFORMED BY: [facility] [address] [place] [address] PATHOLOGIST DIRECTOR OF ARCHITECTURE KATHLEEN RAMOS M.D. Performed By: #### F ER, [id number], CBC, FE and TIBC ####[address] Vitamin B12 ser/plasOrdered By: Katharina Toledo on 08-24-2024 Cobalamin (Vitamin B12) [Mass/Vol] Vitamin B12 ser/plas 180-914 [facility] TRANSFERRINon 07-25-2024 Transferrin [Mass/Vol] 284 mg/dL 192 - 364 mg/dL [facility] Comment on above: Performed at: [address] [id number] Reimbursement Liaison: Baudilio Givens PhD, Phone: [phone] [facility] ALL CBC WITH AUTO DIFFon BASOPHILS ABSOLUTE AUTO 0.1 [facility] Basophils/100 WBC (Bld) 0.9 % 0.2 - 2.0 % [facility] Eosinophils/100 WBC (Bld) 0.9 % 0.9 - 7.0 % [facility] Erythrocyte distribution width (RBC) [Ratio] 17.7 % High 11.0 - 15.0 % [facility] Hematocrit (Bld) [Volume fraction] 29.9 % Low 36.0 - 48.0 % [facility] Hemoglobin (Bld) [Mass/Vol] 8.7 g/dL Low 12.0 - 16.0 g/dL [facility] IMMATURE GRANULOCYTES ABS AUTO 0.03 [facility] Immature granulocytes/100 WBC (Bld) 0.3 % 0.0 - 0.5 % [facility] Interpretation and review of laboratory results Abnormal [facility] LYMPHOCYTES ABSOLUTE AUTO 1.4 [facility] Lymphocytes/100 WBC (Bld) 14.1 % Low 20.5 - 60.0 % [facility] MCH (RBC) [Entitic mass] 22.3 pg Low 26.7 - 34.0 pg [facility] MCHC (RBC) [Mass/Vol] 29.1 g/dL Low 29.9 - 35.2 g/dL [facility] MCV (RBC) [Entitic vol] 76.7 fL Low 81.0 - 99.0 fL [facility] MONOCYTES ABSOLUTE AUTO 0.7 [facility] Monocytes/100 WBC (Bld) 6.6 % 1.7 - 12.0 % [facility] NEUTROPHILS ABSOLUTE AUTO 7.7 High [facility] Neutrophils/100 WBC (Bld) 77.2 % High 43.0 - 75.0 % [facility] Platelet mean volume (Bld) [Entitic vol] 9.3 fL Low 9.5 - 13.5 fL [facility] Healthcare TBH EO # 0.1 [facility] PLT 328 [facility] Healthcare TB RBC 3.9 Low [facility] Healthcare TBH WBC 10 [facility] METRO IRON AND TIBCon 2023 Interpretation and review of laboratory results [facility]normal [facility]ON 17 ug/dL Low 50.0 - 170.0 ug/dL [facility] Healthcare TB PERCENT IRON SATURATION 4.5 % [facility] Healthcare TB TOTAL IRON BINDING CAPACITY 381 ug/dL 250.0 - 450.0 ug/dL [facility] Healthcare Office Visiton 07-18-2024 Follow-up visit [id number] Oliver Starks 1945 F Date Provider Department Center 07/18/2024 [id number] Family History Adopted: Yes Family history unknown: Yes Family Status - Relation Status Age at Mother Father Level of Service:93673 [place] OFFICE/OUTPATIENT ESTABLISHED MOD [facility] 30 MIN Reason for Visit and Comments: Atrial Fibrillation [80] PACEMAKER [Other] Coronary Artery Disease [187] Hypertension [998078] Sinus node dysfunction [Other] - HAS BOSTON PACER Obesity [[id number]] Edema [[id number]] Normal [facility] CNOVon 05-22-2024 CNOV Office Visit (LOORRM ) BREANN STARKS ([id number]) 1945 F Date Time Provider Department 05/22/24 [...] She was recommended for second opinion at [facility]. She also had a CRP and [...] date: COPD (chronic obstructive pulmonary disease) ([facility]) SOCIAL HISTORY: Tobacco Use: Never EXAMINATION: [...] I ordered (more content not included)... Normal [facility] XR SHLDR 4V AP/HECTOR/LAT/OUTLE T [...] other significant abnormality. 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 DIVISION OF RADIOLOGY Provider, Andreina Sandra holguin [place] - 05/22/2024 * * *Final Report* * * DATE OF EXAM: May 22 2024 1:23PM K[facility] 5604 - XR SHLDR 4V AP/HECTOR/LAT/OUTLET LT [...] significant abnormality. 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 XR Shoulder - left 4 ViewsOr dered By: Ccf Provider on 05-22-2024 [facility] ALL CBC WITH AUTO DIFFon BASOPHILS ABSOLUTE AUTO 0.0 [facility] Basophils/100 WBC (Bld) 0.6 % 0.2 - 2.0 % [facility] Eosinophils/100 WBC (Bld) 1.0 % 0.9 - 7.0 % [facility] Erythrocyte distribution width (RBC) [Ratio] 19.6 % High 11.0 - 15.0 % [facility] Hematocrit (Bld) [Volume fraction] 32.9 % Low 36.0 - 48.0 % [facility] Hemoglobin (Bld) [Mass/Vol] 9.7 g/dL Low 12.0 - 16.0 g/dL [facility] IMMATURE GRANULOCYTES ABS AUTO 0.02 [facility] Immature granulocytes/100 WBC (Bld) 0.3 % 0.0 - 0.5 % [facility] Interpretation and review of laboratory results Abnormal [facility] LYMPHOCYTES ABSOLUTE AUTO 1.4 [facility] Lymphocytes/100 WBC (Bld) 20.4 % Low 20.5 - 60.0 % [facility] MCH (RBC) [Entitic mass] 22.8 pg Low 26.7 - 34.0 pg [facility] MCHC (RBC) [Mass/Vol] 29.5 g/dL Low 29.9 - 35.2 g/dL [facility] MCV (RBC) [Entitic vol] 77.4 fL Low 81.0 - 99.0 fL [facility] MONOCYTES ABSOLUTE AUTO 0.7 [facility] Monocytes/100 WBC (Bld) 9.8 % 1.7 - 12.0 % [facility] NEUTROPHILS ABSOLUTE AUTO 4.7 [facility] Neutrophils/100 WBC (Bld) 67.9 % 43.0 - 75.0 % [facility] Platelet mean volume (Bld) [Entitic vol] 8.5 fL Low 9.5 - 13.5 fL [facility] TBH EO # 0.1 [facility] TBH PLT 278 [facility] TB RBC 4.25 [facility] TB WBC 7.0 [facility] bone 3 phaseon 05-02-2024 [place] bone 3 phase [facility] [place] [address] Nuclear Medicine Report Signed Patient: Breann Starks MR#: [id number] 171 : 1945 Acct:[id number] Age/Sex: 78 / F ADM Date: 05/02/24 Loc: [place] Room: Type: [facility] Attending Dr: Pedro Pablo Cruz PA-C Copies to: YOLY Sanon Jeffrey S DO Ordering Provider: Pedro Pablo Cruz PA-C Date of Service: 05/02/24 [place] bone 3 phase: M25.512, Z96.612 Nuclear medicine [...] Etienne Rhodes M.D.05/02/2024 2:44 PM Dictation Location: [place] [address] Transcribed By: [facility] 05/02/241443 Dictated By: Etienne Rhodes DO 05/02/241439 Signed By: 05/02/241443 Normal [facility] Lab Reportson 03-07-2024 Lab Reports [id number]#1.0 0TIFF Normal [facility] 36on 03-06-2024 36 Echo from 03/05/2024 [...] to her pharmacy. BMP order faxed to [facility]. Breann verbalized understanding. Normal [facility] Consent for Procedure/Surger [facility] 03-05-2024 Consent for Procedure/Surgery [id number] 0TIFF Normal [facility] Ambulatory Visit [...] for choosing us for your care. Normal [facility] ED Note-Physicianon 03-02-20 ED Note-Physician [id number]#[id number] TIFF [facility] Insurance Correspondenceon 0 03-02-2024 Insurance Correspondence [id number]. 00TIFF [facility] Lab Reportson 03-02-2024 Lab Reports [id number]#1.0 0TIFF [facility] DXA Skeletal system Views fo r bone densityon 12-12-2023 Interpretation and review of laboratory results Normal [facility] normal [facility] Radiology Study observation (narrative) [facility] XR LSPINE W_OBLS AND FLEX_EX Ton [...] PAULA BROWN Date: 2023-01-31 11:34 Normal [facility] LIPID PROFILEon 12-16-2022 CHOL-HDL RATIO NORM SEE BELOW Normal [facility] Comment on above: Result Comment: 3.3 - 4.4 LOW RISK 4.4 - 7.1 AVERAGE RISK 7.1 - 11.0 MODERATE RISK >11.0 HIGH RISK Performed By: #### L IPID ####[facility] [address] [place] [id number]. Erasmo Smith Cholesterol [Mass/Vol] 105 mg/dL Normal <=200 [facility] Comment on above: Performed By: #### L IPID ####[facility] Ub[address] [place] [id number]. Erasmo Smith Cholesterol in HDL [Mass/Vol] 48 mg/dL Normal 40-60 [facility] Comment on above: Performed By: #### L IPID ####[facility] X[address] [place] [id number]. Erasmo Smith Cholesterol in LDL [Mass/Vol] 48.2 mg/dL Normal [facility] Comment on above: Performed By: #### L IPID ####[facility] Y[address] [place] [address]Dr. Erasmo Smith Cholesterol.total/Cho lesterol in HDL [Mass ratio] 2.2 {ratio} Normal [facility] Comment on above: Performed By: #### L IPID ####[facility] Lfa[address]oxiuv25[address] [place] [id number]. Erasmo Smith HDL NORMAL > or = 60 mg/dl - LO W CARDIOVASCULAR RISK <40 mg/dl - HIGH CARDIOVASCULAR RISK Normal [facility] Comment on above: Performed By: #### L IPID ####[facility] Z[address] [place] [id number]. Erasmo Smith LDL CALC NORMAL SEE BELOW Normal [facility] Comment on above: Result Comment: <100 mg/dl OPTIMAL 100 - 129 mg/dl NEAR OR ABOVE OPTIMAL 130 - 159 mg/dl BORDERLINE HIGH 160 - 189 mg/dl HIGH >190 mg/dl VERY HIGH Performed By: #### L IPID ####[facility] V[address] [place] [id number]. Erasmo Smith Triglyceride [Mass/Vol] 44 mg/dL Normal <=150 [facility] Comment on above: Performed By: #### L IPID ####[facility] E[address]opes[address]ji[address] [place] [address]Dr. Erasmo Smith VLDL CALC 8.8 mg/dL Normal [facility] Comment on above: Performed By: #### L IPID ####[facility] Y[address] [place] [address]Dr. Erasmo Smiht CULTURE BLOODon 12-04-2022 Microscopic examination of blood, [...] Trimethoprim/Sulfameth oxazole <=20 S F Normal [facility] Comment on above: Performed By: #### B LDCX1 ####[facility] F[address]qs[address] [place] [address]Dr. Erasmo Smith BNPon 12-03-2022 Natriuretic peptide B (Bld) [Mass/Vol] 413.0 pg/mL Normal <=1,800.0 [facility] Comment on above: Performed By: #### B INFORMATION SERVICES MANAGER #### [facility] Laboratory [address] [place] [address] [address] Erasmo Smith CBC AUTO DIFFon 12-03-2022 BASO # 0.0 103/ul Normal 0.0-0.1 [facility] Comment on above: Performed By: #### C BC ####[facility] [address] [place] [address]Dr. Erasmo Smith Basophils/100 WBC (Bld) 0.2 % Normal 0.2-2.0 [facility] Comment on above: Performed By: #### C BC ####[facility] Hzwcpiyfmz7046 [place] [address]DrMeena Smith EO # 0.4 103/ul Normal 0.0-0.7 [facility] Comment on above: Performed By: #### C BC ####[facility] [address]fkvkrxjaw[address] [place] [address]DrMeena Smith Eosinophils/100 WBC (Bld) 2.1 % Normal 0.9-7.0 [facility] Comment on above: Performed By: #### C BC ####[facility] Lsaobrhsjm[address] [place] [address]DrMeena Smith Erythrocyte distribution width (RBC) [Ratio] 17.2 % Critically high 11.0-15.0 [facility] Comment on above: Performed By: #### C BC ####[facility] C[address]is[address]xcbfs[address] [place] [address]DrMeena Smith Hematocrit (Bld) [Volume fraction] 29.2 % Critically low 36.0-48.0 [facility] Comment on above: Performed By: #### C BC ####[facility] [address]itux[address] [place] [address]DrMeena Smith Hemoglobin (Bld) [Mass/Vol] 9.5 g/dL Critically low 12.0-16.0 [facility] Comment on above: Performed By: #### C BC ####[facility] [address] [place] [address]Dr. Erasmo Smith IG # 0.13 10e3/ul Critically high 0.00-0.03 [facility] Comment on above: Performed By: #### C BC ####[facility] [address] [place] [address]Dr. Erasmo Smith IG % 0.8 % Critically high 0.0-0.5 [facility] Comment on above: Performed By: #### C BC ####[facility] [address] [place] [address]Dr. Erasmo Luis LYMPH # 1.8 103/ul Normal 1.2-3.8 [facility] Comment on above: Performed By: #### C BC ####[facility] [address]ff[address]rvel[address] [place] [address]Dr. Erasmo Smith Lymphocytes/100 WBC (Bld) 10.3 % Critically low 20.5-60.0 [facility] Comment on above: Performed By: #### C BC ####[facility] [address] [place] [address]Dr. Heavenean Smith MANUAL DIFF REQ NO Normal [facility] Comment on above: Performed By: #### C BC ####[facility] [address] [place] [address]Dr. Erasmo Smith MCH (RBC) [Entitic mass] 25.7 pg Critically low 26.7-34.0 [facility] Comment on above: Performed By: #### C BC ####[facility] Cxajkegdck[address] [place] [address]Dr. Erasmo Luis MCHC (RBC) [Mass/Vol] 32.5 g/dL Normal 29.9-35.2 [facility] Comment on above: Performed By: #### C BC ####[facility] Shczmncf[address] [place] [address]Dr. Erasmo Luis MCV (RBC) [Entitic vol] 79.1 fL Critically low 81.0-99.0 [facility] Comment on above: Performed By: #### C BC ####[facility] Qbwmcjzhoy[address] [place] [id number]. Erasmo Smith MONO # 1.5 103/ul Critically high 0.3-0.8 [facility] Comment on above: Performed By: #### C BC ####[facility] Orqfilvkqu[address] [place] [address]Dr. Erasmo Smith Monocytes/100 WBC (Bld) 8.7 % Normal 1.7-12.0 [facility] Comment on above: Performed By: #### C BC ####[facility] Np[address]ngz[address] [place] [address]Dr. Erasmo Smith NEUT # 13.4 103/ul Critically high 1.4-6.5 [facility] Comment on above: Performed By: #### C BC ####[facility] Bazstcpmii[address] [place] [address]Dr. Erasmo Smith Neutrophils/100 WBC (Bld) 77.9 % Critically high 43.0-75.0 [facility] Comment on above: Performed By: #### C BC ####[facility] Oiqsxrhqlg16[address] [place] [address]Dr. Erasmo Smith Platelet mean volume (Bld) [Entitic vol] 9.3 fL Critically low 9.5-13.5 [facility] Comment on above: Performed By: #### C BC ####[facility] Pnzjex[address]or[address] [place] [address]Dr. Erasmo Smith PLT 205 103/ul Normal 150-450 [facility] Comment on above: Performed By: #### C BC ####[facility] Apysunkznv[address] [place] [address]Dr. Erasmo Smith RBC 3.69 106/ul Critically low 4.20-5.40 [facility] Comment on above: Performed By: #### C BC ####[facility] Lkynsvbcpu6[address] [place] [address]Dr. Erasmo Smith WBC 17.2 103/ul Critically high 4.0-11.0 [facility] Comment on above: Performed By: #### C BC ####[facility] Djwq[address]xjr[address] [place] [address]Dr. Erasmo Smith MAGNESIUMon 12-03-2022 Magnesium [Mass/Vol] 1.9 mg/dL Normal 1.8-2.4 [facility] Comment on above: Performed By: #### B INFORMATION SERVICES MANAGER #### [facility] [address] [address] [address] Erasmo Smith PROF 14(COMP METB)on 023 Albumin [Mass/Vol] 2.6 g/dL Critically low 3.4-5.0 [facility] Comment on above: Performed By: #### B INFORMATION SERVICES MANAGER #### [facility] [address] [place] [address] Dr. Erasmo Smith Albumin/Globulin [Mass ratio] 0.6 {ratio} Normal [facility] Comment on above: Performed By: #### B INFORMATION SERVICES MANAGER #### [facility] [address] [place] [address] Dr. Erasmo Smith ALP [Catalytic activity/Vol] 123 U/L Critically high 46-116 [facility] Comment on above: Performed By: #### B INFORMATION SERVICES MANAGER #### [facility] [address] [place] [address] Dr. Erasmo Smith ALT [Catalytic activity/Vol] 28 U/L Normal 14-59 [facility] Comment on above: Performed By: #### B INFORMATION SERVICES MANAGER #### [facility] [address] [place] [address] Dr. Erasmo Smith Anion gap [Moles/Vol] 9.4 mmol/L Normal [facility] Comment on above: Performed By: #### B INFORMATION SERVICES MANAGER #### [facility] [address] [place] [address] Dr. Erasmo Smith AST [Catalytic activity/Vol] 21 U/L Normal 15-37 [facility] Comment on above: Performed By: #### B INFORMATION SERVICES MANAGER #### [facility] [address] [place] [address] Dr. Erasmo Smith Bilirubin [Mass/Vol] 0.3 mg/dL Normal 0.2-1.0 [facility] Comment on above: Performed By: #### B INFORMATION SERVICES MANAGER #### [facility] [address] [place] [address] Dr. Erasmo Smith Calcium [Mass/Vol] 8.3 mg/dL Critically low 8.5-10.1 [facility] Comment on above: Performed By: #### B INFORMATION SERVICES MANAGER #### [facility] [address] [address] [address] Erasmo Smith Chloride [Moles/Vol] 105 mmol/L Normal 98-107 [facility] Comment on above: Performed By: #### B INFORMATION SERVICES MANAGER #### [facility] [address] [place] [address] Dr. Erasmo Smith CO2 [Moles/Vol] 27.1 mmol/L Normal 21.0-32.0 [facility] Comment on above: Performed By: #### B INFORMATION SERVICES MANAGER #### [facility] [address] [place] [address] Dr. Erasmo Smith Creatinine [Mass/Vol] 0.55 mg/dL Normal 0.55-1.02 [facility] Comment on above: Performed By: #### B INFORMATION SERVICES MANAGER #### [facility] [address] [place] [address] Dr. Erasmo Smith EGFR-AF IRANIAN >60 Normal >=60 [facility] Comment on above: Performed By: #### B INFORMATION SERVICES MANAGER #### [facility] [address] [place] [address] Dr. Erasmo Smith EGFR-NON AF IRANIAN >60 Normal >=60 [facility] Comment on above: Performed By: #### B INFORMATION SERVICES MANAGER #### [facility] [address] [place] [address] Dr. Erasmo Smith Globulin (S) [Mass/Vol] 4.0 g/dL Normal [facility] Comment on above: Performed By: #### B INFORMATION SERVICES MANAGER #### [facility] [address] [place] [address] Dr. Erasmo Smith Glucose [Mass/Vol] 132 mg/dL Critically high 74-106 T [facility] Comment on above: Performed By: #### B INFORMATION SERVICES MANAGER #### [facility] [address] [place] [address] Dr. Erasmo Smith Potassium [Moles/Vol] 3.5 mmol/L Normal 3.5-5.1 [facility] Comment on above: Performed By: #### B INFORMATION SERVICES MANAGER #### [facility] [address] [place] [address] Dr. Erasmo Smith Protein [Mass/Vol] 6.6 g/dL Normal 6.4-8.[address] [facility] Comment on above: Performed By: #### B INFORMATION SERVICES MANAGER #### [facility] [address] [place] [address] Dr. Erasmo Smith Sodium [Moles/Vol] 138 mmol/L Normal 136-[address] [facility] Comment on above: Performed By: #### B INFORMATION SERVICES MANAGER #### [facility] [address] [place] [address] Dr. Erasmo Smith Urea nitrogen [Mass/Vol] 24.0 mg/dL Critically high 7.0-18.0 [facility] Comment on above: Performed By: #### B INFORMATION SERVICES MANAGER #### [facility] [address] [place] [address] Dr. Erasmo Smith Urea nitrogen/Creatinine [Mass ratio] 43.6 mg/mg Normal [facility] Comment on above: Performed By: #### B INFORMATION SERVICES MANAGER #### [facility] [address] [place] [address] Dr. Erasmo Smith PROTIMEon 12-03-2022 INR Coag (PPP) [Relative time] 4.41 {INR} Critically high [facility] Comment on above: Performed By: #### C MREP #### [facility] [address] [place] [address] Dr. Erasmo Smith INR GUIDELINES SEE BELOW Normal [facility] Comment on above: Result Comment: ABNER RED INR: 2.0 - 3.0 CONDITIONS NOT LISTED BELOW 2.5 - 3.5 FOR PROSTHETIC HEART VALVE REPLACEMENT 2.5 - 3.5 RECURRENT THROMBOSIS Performed By: #### C MREP #### [facility] [address] [place] [address] Dr. Erasmo Smith PT Coag (PPP) [Time] 43.0 s Critically high 9.0-11.6 [facility] Comment on above: Performed By: #### C MREP #### [facility] [address] [address] [address] Erasmo Smith BLOOD CULTURE ID PANELon A. baumannii Not detected Normal NOT DETECTED [facility] Comment on above: Performed By: #### B CID2 ####[facility] Z[address] [place] [id number]. Yiean Luis Bacteriodes fragilis Not detected Normal NOT DETECTED [facility] Comment on above: Performed By: #### B CID2 ####[facility] [address]abnq[address] [place] [address]Dr. Yiean Smith BCID CONTROLS PASSED Normal [facility] Comment on above: Performed By: #### B CID2 ####[facility] [address]umjcnj[address] [place] [address]Dr. Erasmo Smith BCIDBTHD BLOOD CULTURE BOTTLE INFORMATION Normal [facility] Comment on above: Performed By: #### B CID2 ####[facility] Seliiiev[address] [place] [address]Dr. Erasmo Luis BCIDHD1 ANTIMICROBIAL RESISTANCE GENES Normal [facility] Comment on above: Performed By: #### B CID2 ####[facility] Eob[address]iiiuo[address] [place] [address]Dr. Erasmo Luis BCIDHD2 SEE BELOW Normal [facility] Comment on above: Result Comment: Note : Antimicrobial resitance can occur via multiple mechanisms. A Not Detected result for the [employer] antomicrobial resistance gene assays does not indicate antimicrobial susceptibility. Subculturing is required for species identification and susceptibility testing of isolates. Performed By: #### B CID2 ####[facility] X[address]tjfx[address] [place] [address]Dr. Heavenean Luis BCIDHD3 Positive Normal [facility] Comment on above: Performed By: #### B CID2 ####[facility] Tu[address]xjj[address] [place] [address]Dr. Heavenean Luis BCIDHD4 Negative Normal [facility] Comment on above: Performed By: #### B CID2 ####[facility] C[address]ciuhd[address] [place] [address]Dr. Erasmo Smith BCIDHD5 YEAST Normal [facility] Comment on above: Performed By: #### B CID2 ####[facility] M[address]ddshagz[address] [place] [address]Dr. Yilan Smith Bottle Set: Set 1 Normal [facility] Comment on above: Performed By: #### B CID2 ####[facility] Akatmoalxl[address] [place] [address]Dr. Erasmo Smith Bottle: Anaerobic Normal [facility] Comment on above: Performed By: #### B CID2 ####[facility] Aimamnntka[address] [place] [address]Dr. Yiean Smith C. neoformans/gattii Not detected Normal NOT DETECTED [facility] Comment on above: Performed By: #### B CID2 ####[facility] [address]enn[address]xyp[address] [place], [place] [address]Dr. Yiean [facility] Rashid albicans Not detected Normal NOT DETECTED [facility] Comment on above: Performed By: #### B CID2 ####[facility] Jhjkzsjljo[address] [place], [place] [address]Dr. Yiean Smith Rashid auris Not detected Normal NOT DETECTED The [facility] Comment on above: Performed By: #### B CID2 ####[facility] Ytzic[address]yls[address] [place], [place] [address]Dr. Yiean Smith Rashid glabrata Not detected Normal NOT DETECTED [facility] Comment on above: Performed By: #### B CID2 ####[facility] Hrmlpnqcrd[address] [place], [place] [address]Dr. Yiean Smith Rashid Krusei Not detected Normal NOT DETECTED [facility] Comment on above: Performed By: #### B CID2 ####[facility] Rnyirznrzu[address] [place], [place] [address]Dr. Yilan Smith Rashid Parapsilosis Not detected Normal NOT DETECTED [facility] Comment on above: Performed By: #### B CID2 ####[facility] Umldkufoxx05[address] [place], [place] [address]Dr. Yiean Smith Rashid Tropicalis Not detected Normal NOT DETECTED [facility] Comment on above: Performed By: #### B CID2 ####[facility] Enoybcrrff[address] [place], [place] [address]Dr. Erasmo Smith CTX-M Resistant Gene Not Applicable Normal NOT DETECTE D [facility] Comment on above: Performed By: #### B CID2 ####[facility] Fimmjrdson[address] [place], [place] [address]Dr. Erasmo Smith E. Cloacae complex Not detected Normal NOT DETECTED [facility] Comment on above: Performed By: #### B CID2 ####[facility] Tluzuohpwd98[address] [place], [place] [address]Dr. Erasmo Smith E. faecalis Not detected Normal NOT DETECTED [facility] Comment on above: Performed By: #### B CID2 ####[facility] [address]xmceyqysq36[address] [place], [place] [address]Dr. Erasmo Smith E. faecium Not detected Normal NOT DETECTED [facility] Comment on above: Performed By: #### B CID2 ####[facility] Sorxbwztnz[address] [place], [place] [address]Dr. Erasmo Smith Enterobacteriaceae Detected Critically abnormal NOT DETECTED [facility] Comment on above: Performed By: #### B CID2 ####[facility] Mgapdphzkh16[address] [place], [place] [address]Dr. Erasmo Smith Escherichia coli Detected Critically abnormal NOT DETECTED [facility] Comment on above: Performed By: #### B CID2 ####[facility] [address]ybnmdrwae[address] [place], [place] [address]Dr. Erasmo Smith H. influenzae Not detected Normal NOT DETECTED The [facility] Comment on above: Performed By: #### B CID2 ####[facility] Ecwiowoufd2003[address] [place], [place] [address]Dr. Erasmo Smith IMP Resistant Gene Not Applicable Normal NOT DETECTED [facility] Comment on above: Performed By: #### B CID2 ####[facility] Kwspyamlkr326[address] [place], [place] [address]Dr. Erasmo Smith K. oxytoca Not detected Normal NOT DETECTED [facility] Comment on above: Performed By: #### B CID2 ####[facility] Bomanximhv3814[address] [place], [place] [address]Dr. Erasmo Smith K. pneumoniae Not detected Normal NOT DETECTED The [facility] Comment on above: Performed By: #### B CID2 ####[facility] Xwjucbveyo98[address] [place], [place] [address]Dr. Erasmo Smith Klebsiella aerogenes Not detected Normal NOT DETECTED [facility] Comment on above: Performed By: #### B CID2 ####[facility] Sbyfrltcoc01[address] [place], [place] [address]Dr. Erasmo Smith KPC Resistant Gene Not detected Normal NOT DETECTED [facility] Comment on above: Performed By: #### B CID2 ####[facility] Rekqujmuml[address] [place], [place] [address]Dr. Erasmo Smith List. monocytogenes Not detected Normal NOT DETECTED [facility] Comment on above: Performed By: #### B CID2 ####[facility] Hicgddxlre85[address] [place], [place] [address]Dr. Erasmo Smith Mcr-1 Resistant Gene Not Applicable Normal NOT DETECTE D [facility] Comment on above: Performed By: #### B CID2 ####[facility] Sbagvvvztr74[address] [place], [place] [address]Dr. Heavenean Smith mecA/C Not Applicable Normal NOT DETECTED [facility] Comment on above: Performed By: #### B CID2 ####[facility] Eshwgqihvb9[address] [place], [place] [address]Dr. Erasmo Smith mecA/C MREJ Not Applicable Normal NOT DETECTED The [facility] Comment on above: Performed By: #### B CID2 ####[facility] Zmscbfcswj20[address] [place], [place] [address]Dr. Erasmo Smith N. meningitidis Not detected Normal NOT DETECTED The [facility] Comment on above: Performed By: #### B CID2 ####[facility] Zyjuurdzef85[address] [place], [place] [address]Dr. Erasmo Smith NDM Resistant Gene Not Applicable Normal NOT DETECTED [facility] Comment on above: Performed By: #### B CID2 ####[facility] Wlzduneflp9674[address] [place], [place] [address]Dr. Erasmo Smith Oxa-48-like Not Applicable Normal NOT DETECTED The [facility] Comment on above: Performed By: #### B CID2 ####[facility] Uodahhvigx6[address] [place], [place] [address]Dr. Erasmo Smith Proteus Not detected Normal NOT DETECTED [facility] Comment on above: Performed By: #### B CID2 ####[facility] Hrurirtohu38[address] [place], [place] [address]Dr. Erasmo Smith Pseud. aeruginosa Not detected Normal NOT DETECTED [facility] Comment on above: Performed By: #### B CID2 ####[facility] Nwmmgrdzyh8[address] [place], [place] [address]Dr. Erasmo Smith S. maltophilia Not detected Normal NOT DETECTED [facility] Comment on above: Performed By: #### B CID2 ####[facility] Iocvfiakie52[address] [place], [place] [address]Dr. Erasmo Smith Salmonella Not detected Normal NOT DETECTED [facility] Comment on above: Performed By: #### B CID2 ####[facility] Gfbkjtqteg[address] [place], [place] [address]Dr. Erasmo Smith Seratia marcescens Not detected Normal NOT DETECTED [facility] Comment on above: Performed By: #### B CID2 ####[facility] Godnxcrtvw794[address] [place], [place] [address]Dr. Erasmo Smith Site: l ac Normal [facility] Comment on above: Performed By: #### B CID2 ####[facility] Gdpaipzzip40[address] [place], [place] [address]Dr. Erasmo Smith Staph. aureus Not detected Normal NOT DETECTED The [facility] Comment on above: Performed By: #### B CID2 ####[facility] Zisuwxexfo9[address] [place], [place] [address]Dr. Erasmo Smith Staph. epidermidis Not detected Normal NOT DETECTED [facility] Comment on above: Performed By: #### B CID2 ####[facility] Osoazjpmea9[address] [place], [place] [address]Dr. Erasmo Smith Staph. lugdunensis Not detected Normal NOT DETECTED [facility] Comment on above: Performed By: #### B CID2 ####[facility] Qkxtfexuni[address] [place] [address]Dr. Erasmo Smith Staphylococcus Not detected Normal NOT DETECTED [facility] Comment on above: Performed By: #### B CID2 ####[facility] Kwdpupcmzu3476 [place] [address]Dr. Erasmo Smith Strep. agalactiae Not detected Normal NOT DETECTED [facility] Comment on above: Performed By: #### B CID2 ####[facility] Fypllxdaoo62[address] [place] [address]Dr. Erasmo Smith Strep. pneumoniae Not detected Normal NOT DETECTED [facility] Comment on above: Performed By: #### B CID2 ####[facility] Brptsflqgr34[address] [place], [place] [address]Dr. Erasmo Smith Strep. pyogenes Not detected Normal NOT DETECTED The [facility] Comment on above: Performed By: #### B CID2 ####[facility] Dxhfbkxugf00[address] [place], [place] [address]Dr. Erasmo Smith Streptococcus Not detected Normal NOT DETECTED The [facility] Comment on above: Performed By: #### B CID2 ####[facility] Isevoybmlk3[address] [place], [place] [address]Dr. Erasmo Smith Fran/B Resist. Gene Not detected Normal NOT DETECTED [facility] Comment on above: Performed By: #### B CID2 ####[facility] Gnvbgutcmd6[address] [place], [place] [address]Dr. Erasmo Smith VIM Resistant Gene Not Applicable Normal NOT DETECTED [facility] Comment on above: Performed By: #### B CID2 ####[facility] [address]lcultrrp[address] [place], [place] [address]DrMeena Smith BNPon 12-02-2022 Natriuretic peptide B (Bld) [Mass/Vol] 1059.0 pg/mL Normal <=1,800.0 [facility] Comment on above: Performed By: #### B INFORMATION SERVICES MANAGER #### [facility] [address] [address] [address] Erasmo Smith CBC AUTO DIFFon 12-02-2022 BASO # 0.0 103/ul Normal 0.0-0.1 [facility] Comment on above: Performed By: #### C BC ####[facility] Wdonimdiwn4[address] [place] [address]DrMeena Smith Basophils/100 WBC (Bld) 0.2 % Normal 0.2-2.0 [facility] Comment on above: Performed By: #### C BC ####[facility] Qqipqnwtin[address] [place] [address]DrMeena Smith EO # 0.0 103/ul Normal 0.0-0.7 [facility] Comment on above: Performed By: #### C BC ####[facility] Ynfwueljqj[address] [place], [place] [address]DrMeena Smith Eosinophils/100 WBC (Bld) 0.0 % Critically low 0.9-7.0 [facility] Comment on above: Performed By: #### C BC ####[facility] [address]uedlwt[address] [place], [place] [address]DrMeena Smith Erythrocyte distribution width (RBC) [Ratio] 17.3 % Critically high 11.0-15.0 [facility] Comment on above: Performed By: #### C BC ####[facility] Bzryboltfr[address] [place], [place] [address]DrMeena Smith Hematocrit (Bld) [Volume fraction] 31.4 % Critically low 36.0-48.0 [facility] Comment on above: Performed By: #### C BC ####[facility] Upiwxalyey43[address] [place], [place] [address]Dr. Erasmo Smith Hemoglobin (Bld) [Mass/Vol] 10.0 g/dL Critically low 12.0-16.0 [facility] Comment on above: Performed By: #### C BC ####[facility] Tzzoff[address]ocg[address] [place], [place] [address]DrMeena Smith IG # 0.06 10e3/ul Critically high 0.00-0.03 [facility] Comment on above: Performed By: #### C BC ####[facility] Hjbovhytlt5980 [place], [place] [address]Nq. Erasmo Smith IG % 0.4 % Normal 0.0-0.5 [facility] Comment on above: Performed By: #### C BC ####[facility] [address]reex[address] [place] [address]Dr. Erasmo Smith LYMPH # 1.3 103/ul Normal 1.2-3.8 [facility] Comment on above: Performed By: #### C BC ####[facility] [address]neft[address]zxrf[address] [place] [id number]. Erasmo Smith Lymphocytes/100 WBC (Bld) 8.1 % Critically low 20.5-60.0 [facility] Comment on above: Performed By: #### C BC ####[facility] Urvfwnhghl[address] [place] [id number]. Erasmo Smith MANUAL DIFF REQ NO Normal [facility] Comment on above: Performed By: #### C BC ####[facility] Lnufybmeeo45[address] [place] [id number]. Erasmo Smith MCH (RBC) [Entitic mass] 25.6 pg Critically low 26.7-34.0 [facility] Comment on above: Performed By: #### C BC ####[facility] Wlrdkbamxt9[address] [place] [id number]. Erasmo Smith MCHC (RBC) [Mass/Vol] 31.8 g/dL Normal 29.9-35.2 [facility] Comment on above: Performed By: #### C BC ####[facility] Qxelhexyah5967 [place] [id number]. Erasmo Smith MCV (RBC) [Entitic vol] 80.3 fL Critically low 81.0-99.0 [facility] Comment on above: Performed By: #### C BC ####[facility] Xusqeghfxg4[address] [place] [id number]. Erasmo Smith MONO # 0.6 103/ul Normal 0.3-0.8 [facility] Comment on above: Performed By: #### C BC ####[facility] Gdgedpkul[address] [place] [id number]. Erasmo Smith Monocytes/100 WBC (Bld) 3.7 % Normal 1.7-12.0 [facility] Comment on above: Performed By: #### C BC ####[facility] Hlwtvsohrx3438 [place] [id number]. Erasmo Smith NEUT # 14.5 103/ul Critically high 1.4-6.5 [facility] Comment on above: Performed By: #### C BC ####[facility] Ibbvtgwqhp8154 [place] [id number]. Erasmo Smith Neutrophils/100 WBC (Bld) 87.6 % Critically high 43.0-75.0 [facility] Comment on above: Performed By: #### C BC ####[facility] Cbzqgurmzg9325 [place] [id number]. Erasmo Smith Platelet mean volume (Bld) [Entitic vol] 10.0 fL Normal 9.5-13.5 [facility] Comment on above: Performed By: #### C BC ####[facility] Czgzyusbxg5865 [place] [id number]. Erasmo Smith PLT 206 103/ul Normal 150-450 [facility] Comment on above: Performed By: #### C BC ####[facility] Ywnrkvpqcz6558 [place] [id number]. Erasmo Smith RBC 3.91 106/ul Critically low 4.20-5.40 [facility] Comment on above: Performed By: #### C BC ####[facility] Kwibgwlqif6598 [place] [address]Dr. Erasmo Smith WBC 16.5 103/ul Critically high 4.0-11.0 [facility] Comment on above: Performed By: #### C BC ####[facility] Kqujatvmaa[address] [place] [id number]. Erasmo Smith ECHOCARDIO M/2D COMPLETEon 0 12-02-2022 ECHOCARDIO M/2D COMPLETE Patient: BREANN STARKS Exam Date: 12/02/2022 : 1945 Gender:F Ordering : KAYLEY HOLMAN . Admission #: [id number] Family : DR LUISANA JOHNSON . Order #: [id number] CLICK HERE TO VIEW EXAM ECHOCARDIOGRAM REPORT [...] M.D. on 12/02/2022 at 21:58 Normal [facility] MAGNESIUMon 12-02-2022 Magnesium [Mass/Vol] 2.0 mg/dL Normal 1.8-2.4 [facility] Comment on above: Performed By: #### B INFORMATION SERVICES MANAGER #### [facility] [address] [place] [address] Dr. Erasmo Smith PROF 14(COMP METB)on 023 Albumin [Mass/Vol] 2.7 g/dL Critically low 3.4-5.0 [facility] Comment on above: Performed By: #### B INFORMATION SERVICES MANAGER #### [facility] [address] [place] [address] Dr. Erasmo Smith Albumin/Globulin [Mass ratio] 0.6 {ratio} Normal [facility] Comment on above: Performed By: #### B INFORMATION SERVICES MANAGER #### [facility] [address] [place] [address] Dr. Erasmo Smith ALP [Catalytic activity/Vol] 128 U/L Critically high 46-116 [facility] Comment on above: Performed By: #### B INFORMATION SERVICES MANAGER #### [facility] [address] [place] [address] [address] Erasmo Smith ALT [Catalytic activity/Vol] 34 U/L Normal 14-59 [facility] Comment on above: Performed By: #### B INFORMATION SERVICES MANAGER #### [facility] [address] [address] [address] Erasmo Smith Anion gap [Moles/Vol] 10.6 mmol/L Normal [facility] Comment on above: Performed By: #### B INFORMATION SERVICES MANAGER #### [facility] [address] [place] [address] [address] Erasmo Smith AST [Catalytic activity/Vol] 27 U/L Normal 15-37 [facility] Comment on above: Performed By: #### B INFORMATION SERVICES MANAGER #### [facility] [address] [place] [address] Dr. Erasmo Smith Bilirubin [Mass/Vol] 0.5 mg/dL Normal 0.2-1.0 [facility] Comment on above: Performed By: #### B INFORMATION SERVICES MANAGER #### [facility] [address] [place] [address] Dr. Erasmo Smith Calcium [Mass/Vol] 8.4 mg/dL Critically low 8.5-10.1 [facility] Comment on above: Performed By: #### B INFORMATION SERVICES MANAGER #### [facility] [address] [place] [address] Dr. Erasmo Smith Chloride [Moles/Vol] 104 mmol/L Normal 98-107 [facility] Comment on above: Performed By: #### B INFORMATION SERVICES MANAGER #### [facility] [address] [place] [address] Dr. Erasmo Smith CO2 [Moles/Vol] 26.2 mmol/L Normal 21.0-32.0 [facility] Comment on above: Performed By: #### B INFORMATION SERVICES MANAGER #### [facility] [address] [place] [address] Dr. Erasmo Smith Creatinine [Mass/Vol] 0.52 mg/dL Critically low 0.55-1.02 [facility] Comment on above: Performed By: #### B INFORMATION SERVICES MANAGER #### [facility] [address] [place] [address] Dr. Erasmo Smith EGFR-AF IRANIAN >60 Normal >=60 [facility] Comment on above: Performed By: #### B INFORMATION SERVICES MANAGER #### [facility] [address] [place] [address] Dr. Erasmo Smith EGFR-NON AF IRANIAN >60 Normal >=60 [facility] Comment on above: Performed By: #### B INFORMATION SERVICES MANAGER #### [facility] [address] [place] [address] Dr. Eramso Smith Globulin (S) [Mass/Vol] 4.3 g/dL Normal [facility] Comment on above: Performed By: #### B INFORMATION SERVICES MANAGER #### [facility] [address] [place] [address] Dr. Erasmo Smith Glucose [Mass/Vol] 135 mg/dL Critically high 74-106 T [facility] Comment on above: Performed By: #### B INFORMATION SERVICES MANAGER #### [facility] [address] [place] [address] Dr. Erasmo Smith Potassium [Moles/Vol] 3.8 mmol/L Normal 3.5-5.1 [facility] Comment on above: Performed By: #### B INFORMATION SERVICES MANAGER #### [facility] [address] [place] [address] Dr. Erasmo Smith Protein [Mass/Vol] 7.0 g/dL Normal 6.4-8.[address] [facility] Comment on above: Performed By: #### B INFORMATION SERVICES MANAGER #### [facility] [address] [place] [address] Dr. Erasmo Smith Sodium [Moles/Vol] 137 mmol/L Normal 136-[address] [facility] Comment on above: Performed By: #### B INFORMATION SERVICES MANAGER #### [facility] [address] [place] [address] Dr. Erasmo Smith Urea nitrogen [Mass/Vol] 16.0 mg/dL Normal 7.0-18.0 [facility] Comment on above: Performed By: #### B INFORMATION SERVICES MANAGER #### [facility] [address] [place] [address] Dr. Erasmo Smith Urea nitrogen/Creatinine [Mass ratio] 30.8 mg/mg Normal [facility] Comment on above: Performed By: #### B INFORMATION SERVICES MANAGER #### [facility] [address] [place] [address] [address] Erasmo Smith PROTIMEon 12-02-2022 INR Coag (PPP) [Relative time] 4.39 {INR} Critically high [facility] Comment on above: Performed By: #### P T #### [facility] [address] [place] [address] [address] Erasmo Smith INR GUIDELINES SEE BELOW Normal [facility] Comment on above: Result Comment: ABNER RED INR: 2.0 - 3.0 CONDITIONS NOT LISTED BELOW 2.5 - 3.5 FOR PROSTHETIC HEART VALVE REPLACEMENT 2.5 - 3.5 RECURRENT THROMBOSIS Performed By: #### P T #### [facility] [address] [place] [address] [address] Erasmo Smith PT Coag (PPP) [Time] 42.8 s Critically high 9.0-11.6 [facility] Comment on above: Performed By: #### P T #### [facility] [address] [place] [address] [address] Erasmo Smith UA RANDOM W/MICROSCOPICon BACTERIA NONE SEEN Normal NONE SEEN [facility] Comment on above: Performed By: #### U AMIC ####[facility] [address] [place] [address]DrMeena Smith Bilirubin Ql (U) Negative Normal NEGATIVE [facility] Comment on above: Performed By: #### U AMIC ####[facility] [address]ghxeprmse[address] [place] [address]Dr. Erasmo Smith CAST NONE SEEN Normal NONE SEEN [facility] Comment on above: Performed By: #### U AMIC ####[facility] Thyqgoonuz[address] [place] [address]Dr. Erasmo Smith Clarity (U) CLEAR Normal CLEAR [facility] Comment on above: Performed By: #### U AMIC ####[facility] Ablswsnril[address] [place] [address]Dr. Erasmo Smith Color (U) YELLOW Normal YELLOW [facility] Comment on above: Performed By: #### U AMIC ####[facility] Mgtwfqxnti[address] [place] [address]Dr. Erasmo Smith Crystals LM Nom (Urine sed) NONE SEEN Normal NONE SEEN [facility] Comment on above: Performed By: #### U AMIC ####[facility] Krlsnuyhaf[address] [place] [id number]. Erasmo Smith Epithelial cells LM Ql (Urine sed) RARE Normal NONE SEEN /RARE [facility] Comment on above: Performed By: #### U AMIC ####[facility] [address]hlzqfitr[address] [place] [address]Dr. Erasmo Smith Glucose Ql (U) Negative Normal NEGATIVE [facility] Comment on above: Performed By: #### U AMIC ####[facility] Rnxphbrxhu4[address] [place] [address]Dr. Erasmo Smith Hemoglobin Ql (U) SMALL Abnormal NEGATIVE [facility] Comment on above: Performed By: #### U AMIC ####[facility] [address] [place], [place] [address]Dr. Erasmo Smith Ketones Ql (U) 15 mg/dl Abnormal NEGATIVE [facility] Comment on above: Performed By: #### U AMIC ####[facility] [address] [place], [place] [address]Dr. Erasmo Smith LEUKOCYTES Negative Normal NEGATIVE [facility] Comment on above: Performed By: #### U AMIC ####[facility] [address] [place], [place] [address]Dr. Erasmo Smith MUCOUS NONE SEEN Normal NONE SEEN [facility] Comment on above: Performed By: #### U AMIC ####[facility] [address] [place], [place] [address]Dr. Erasmo Smith Nitrite Ql (U) Negative Normal NEGATIVE [facility] Comment on above: Performed By: #### U AMIC ####[facility] [address]jfcjmjwn[address] [place] [address]Dr. Erasmo Smith pH (U) 6.0 [pH] Normal 5-9 [facility] Comment on above: Performed By: #### U AMIC ####[facility] Nsshdyvydg1260 [place] [id number]. Erasmo Smith RBC 0-2 Normal 0-2 [facility] Comment on above: Performed By: #### U AMIC ####[facility] Jxtxhniqez4832 [place] [id number]. Erasmo Smith SPEC GRAVITY 1.025 Normal 1.005-<=1.02 5 [facility] Comment on above: Performed By: #### U AMIC ####[facility] Nxlcsplnbe39[address] [place] [address]Dr. Erasmo Smith UA PROTEIN TRACE Normal NEGATIVE/ TRACE [facility] Comment on above: Performed By: #### U AMIC ####[facility] [address]eqcqxrkoy[address] [place] [address]Dr. Erasmo Smith Urobilinogen Qn (U) 4 {Shraddha'U}/dL Abnormal 0.2 - 1.0 [facility] Comment on above: Performed By: #### U AMIC ####[facility] Ybatoorfuo9467 [place] [address]Dr. Erasmo Smith WBC 0-2 Abnormal NONE SEEN [facility] Comment on above: Performed By: #### U AMIC ####[facility] Zgdbljuxnc7372 [place] [id number]. Erasmo Smith CARDIAC ROSA ELENA 3-6on 3 CK [Catalytic activity/Vol] 53 U/L Normal 26-192 [facility] Comment on above: Performed By: #### C MREP #### [facility] [address] [place] [address] [address] Erasmo Smith CK.MB [Mass/Vol] 0.90 ng/mL Normal <=3.60 [facility] Comment on above: Performed By: #### C MREP #### [facility] [address] [place] [address] [address] Erasmo Smith HSTROP 116.7 pg/mL Critically high 4.0-51.3 [facility] Comment on above: Result Comment: CUT- OFF POINTS HAVE BEEN ESTABLISHED BASED ON THE FOURTH UNIVERSAL DEFINITIONS OF MYOCARDIAL INFARCTION. THE UPPER REFERENCE LIMIT (URL) OF TROPONIN, DEFINED THE 99TH PERCENTILE OF cTnI DISTRIBUTION IN A REFERENCE POPULATION, HAS BEEN CONFIRMED THE DECISION THRESHOLD FOR [place] DIAGNOSIS. Performed By: #### C MREP #### [facility] [address] [place] [address] Dr. Erasmo Smith CK [Catalytic activity/Vol] 47 U/L Normal 26-192 [facility] Comment on above: Performed By: #### B INFORMATION SERVICES MANAGER #### [facility] [address] [place] [address] Dr. Erasmo Smith CK.MB [Mass/Vol] 1.00 ng/mL Normal <=3.60 [facility] Comment on above: Performed By: #### B INFORMATION SERVICES MANAGER #### [facility] [address] [place] [address] Dr. Erasmo Smith HSTROP 154.3 pg/mL Critically high 4.0-51.3 [facility] Comment on above: Result Comment: CUT- OFF POINTS HAVE BEEN ESTABLISHED BASED ON THE FOURTH UNIVERSAL DEFINITIONS OF MYOCARDIAL INFARCTION. THE UPPER REFERENCE LIMIT (URL) OF TROPONIN, DEFINED THE 99TH PERCENTILE OF cTnI DISTRIBUTION IN A REFERENCE POPULATION, HAS BEEN CONFIRMED THE DECISION THRESHOLD FOR [place] DIAGNOSIS. Performed By: #### B INFORMATION SERVICES MANAGER #### [facility] [address] [place] [address] Dr. Erasmo Smith CBC W MANUAL DIFFon 12-02-19 23 ATYPICAL LYMPH # Normal [facility] Comment on above: Performed By: #### C ANGELA #### [facility] [address] [place] [address] Dr. Erasmo Smith ATYPICAL LYMPH % Normal [facility] Comment on above: Performed By: #### C ANGELA #### [facility] [address] [place] [address] Dr. Erasmo Smith BAND # 0.6 103/ul Critically high 0.0-0.3 [facility] Comment on above: Performed By: #### C ANGELA #### [facility] [address] [place] [address] Dr. Erasmo Smith BAND % 3 % Normal 0-5 [facility] Comment on above: Performed By: #### C ANGELA #### [facility] [address] [address] [address] Erasmo Smith BASOM # 0.00 103/ul Normal 0.00-0.10 [facility] Comment on above: Performed By: #### C ANGELA #### [facility] [address] [place] [address] Dr. Erasmo Smith BASOM % 0.0 % Critically low 0.2-2.0 [facility] Comment on above: Performed By: #### C BCBLAISE #### [facility] [address] [place] [address] Dr. Erasmo Smith BLAST # Normal [facility] Comment on above: Performed By: #### C ANGELA #### [facility] [address] [place] [address] Dr. Erasmo Smith BLAST % Normal [facility] Comment on above: Performed By: #### C ANGELA #### [facility] [address] [place] [address] Dr. Erasmo Smith CORRECTED WBC Normal 4.0-11.0 [facility] Comment on above: Performed By: #### C ANGELA #### [facility] [address] [place] [address] Dr. Erasmo Smith EOS # 0.19 103/ul Normal 0.00-0.70 [facility] Comment on above: Performed By: #### C ANGELA #### [facility] [address] [place] [address] Dr. Erasmo Smith EOS% 1.0 % Normal 0.9-7.0 [facility] Comment on above: Performed By: #### C ANGELA #### [facility] [address] [place] [address] Dr. Erasmo Smith HCT 32.7 % Critically low 36.0-48.0 [facility] Comment on above: Performed By: #### C ANGELA #### [facility] [address] [place] [address] Dr. Erasmo Smith HGB 10.5 g/dl Critically low 12.0-16.0 [facility] Comment on above: Performed By: #### C ANGELA #### [facility] [address] [address] [address] Erasmo Smith LYMPHM # 0.76 103/ul Critically low 1.20-3.80 [facility] Comment on above: Performed By: #### C ANGELA #### [facility] [address] [address] [address] Erasmo Smith LYMPHM% 4.0 % Critically low 20.5-60.0 [facility] Comment on above: Performed By: #### C ANGELA #### [facility] [address] [address] [address] Erasmo Smith MCH 25.9 pg Critically low 26.7-34.0 [facility] Comment on above: Performed By: #### C ANGELA #### [facility] [address] [place] [address] Dr. Erasmo Smith MCHC 32.1 g/dl Normal 29.9-35.2 [facility] Comment on above: Performed By: #### C ANGELA #### [facility] [address] [address] [address] Erasmo Smith MCV 80.5 fL Critically low 81.0-99.0 [facility] Comment on above: Performed By: #### C ANGELA #### [facility] [address] [place] [address] Dr. Erasmo Smith METAMYELOCYTE # Normal [facility] Comment on above: Performed By: #### C ANGELA #### [facility] [address] [address] [address] Erasmo Smith METAMYELOCYTE % Normal [facility] Comment on above: Performed By: #### C ANGELA #### [facility] [address] [address] [address] Erasmo Smith MONOM# 1.14 103/ul Critically high 0.30-0.80 [facility] Comment on above: Performed By: #### C ANGELA #### [facility] [address] [address] [address] Erasmo Smith MONOM% 6.0 % Normal 1.7-12.0 [facility] Comment on above: Performed By: #### C ANGELA #### [facility] [address] [place] [address] Dr. Erasmo Smith MPV 9.4 fL Critically low 9.5-13.5 [facility] Comment on above: Performed By: #### C ANGELA #### [facility] [address] [address] [address] Erasmo Smith MYELOCYTE # Normal [facility] Comment on above: Performed By: #### C ANGELA #### [facility] [address] [place] [address] Dr. Erasmo Smith MYELOCYTE % Normal [facility] Comment on above: Performed By: #### C ANGELA #### [facility] [address] [place] [address] Dr. Erasmo Smith NRBC Normal [facility] Comment on above: Performed By: #### C ANGELA #### [facility] [address] [place] [address] Dr. Erasmo Smith PLT 195 103/ul Normal 150-450 [facility] Comment on above: Performed By: #### C ANGELA #### [facility] [address] [place] [address] Dr. Erasmo Smith RBC 4.06 106/ul Critically low 4.20-5.40 [facility] Comment on above: Performed By: #### C ANGELA #### [facility] [address] [place] [address] Dr. Erasmo Smith RDW 17.7 % Critically high 11.0-15.0 [facility] Comment on above: Performed By: #### C ANGELA #### [facility] [address] [place] [address] Dr. Erasmo Smith SEG # 16.34 103/ul Critically high 1.40-6.50 [facility] Comment on above: Performed By: #### C ANGELA #### [facility] [address] [place] [address] Dr. Erasmo Smith SEG % 86.0 % Critically high 43.0-75.0 [facility] Comment on above: Performed By: #### Yamile MILLER #### [facility] [address] [place], [place] [address] Dr. Erasmo Smith WBC 19.0 103/ul Critically high 4.0-11.0 [facility] Comment on above: Performed By: #### Yamile MILLER #### [facility] [id number] Erasmo Smith CT HEAD WO CONon [...] SALOME MCCORMICK Date: 2022 14:50 Normal [facility] CULTURE BLOODon 2022 Microscopic examination of blood, culture Culture Observations: Aerobic and Anaerobic bottle positive. BCID: E. Coli Culture Observations: Refer to for VIOLET. Isolate 1 Escherichia coli Growth of Normal [facility] Comment on above: Performed By: #### B LDCX2 ####[facility] [address] [place], [place] [address]FgDr. Erasmo Smith Covid-19 PCR (CVDTB)on 11-11 SARS-CoV-2 (COVID-19) RNA EMILY+probe Ql (Unsp spec) Not detected Normal NOT DETECTED [facility] Comment on above: Result [...] for this test is supported by the [employer] of Health and Human Service's declaration that [...] used). Performed By: #### C MREP #### [facility] [address] [address] [address] Erasmo Smith LACTATE/LACTIC ACIDon 2022 Lactate [Moles/Vol] 1.2 mmol/L Normal 0.4-2.0 [facility] Comment on above: Performed By: #### L ACT ####[facility] [address] [place] [address]Dr. Erasmo Smith PH VENOUS BLOODon 2022 PCO2 VENOUS 37.8 mmHg Critically low 40.0-52.0 [facility] Comment on above: Performed By: #### P HVEN ####[facility] [address] [place] [id number]. Erasmo Smith pH VENOUS 7.417 Normal 7.330-7.430 [facility] Comment on above: Performed By: #### P HVEN ####[facility] X[address]oxewgni[address] [place] [id number]. Erasmo Smith PROF 14(COMP METB)on 023 Albumin [Mass/Vol] 3.1 g/dL Critically low 3.4-5.0 [facility] Comment on above: Performed By: #### H STROPN, CMP ####[facility] [address]cy[address] [place] [id number]. Erasmo Smith Albumin/Globulin [Mass ratio] 0.8 {ratio} Normal [facility] Comment on above: Performed By: #### H STROPN, CMP ####[facility] [address] [place] [id number]. Erasmo Smith ALP [Catalytic activity/Vol] 194 U/L Critically high 46-116 [facility] Comment on above: Performed By: #### H STROPN, CMP ####[facility] [address]tilxcyep[address] [place] [id number]. Erasmo Smith ALT [Catalytic activity/Vol] 37 U/L Normal 14-59 [facility] Comment on above: Performed By: #### H STROPN, CMP ####[facility] [address] [place] [id number]. Erasmo Smith Anion gap [Moles/Vol] 14.6 mmol/L Normal [facility] Comment on above: Performed By: #### H STROPN, CMP ####[facility] [address] [place] [address]Dr. rEasmo Smith AST [Catalytic activity/Vol] 32 U/L Normal 15-37 [facility] Comment on above: Performed By: #### H STROPN, CMP ####[facility] [address] [place] [address]Dr. Erasmo Smith Bilirubin [Mass/Vol] 1.0 mg/dL Normal 0.2-1.0 [facility] Comment on above: Performed By: #### H STROPN, CMP ####[facility] Oddzr[address]pe[address] [place] [address]Dr. Erasmo Smith Calcium [Mass/Vol] 8.9 mg/dL Normal 8.5-10.[address] [facility] Comment on above: Performed By: #### H STROPN, CMP ####[facility] [address] [place] [address]Dr. Erasmo Smith Chloride [Moles/Vol] 103 mmol/L Normal 98-107 [facility] Comment on above: Performed By: #### H STROPN, CMP ####[facility] [address] [place] [address]Dr. Heavenean Smith CO2 [Moles/Vol] 23.6 mmol/L Normal 21.0-32.0 [facility] Comment on above: Performed By: #### H STROPN, CMP ####[facility] [address] [place] [address]Dr. Erasmo Luis Creatinine [Mass/Vol] 0.69 mg/dL Normal 0.55-1.02 [facility] Comment on above: Performed By: #### H STROPN, CMP ####[facility] [address] [place] [address]Dr. Erasmo Luis EGFR-AF IRANIAN >60 Normal >=60 [facility] Comment on above: Performed By: #### H STROPN, CMP ####[facility] [address]vbjcd[address] [place] [address]Dr. Erasmo Smith EGFR-NON AF IRANIAN >60 Normal >=60 [facility] Comment on above: Performed By: #### H STROPN, CMP ####[facility] [address] [place], [place] [address]Dr. Erasmo Smith Globulin (S) [Mass/Vol] 4.1 g/dL Normal [facility] Comment on above: Performed By: #### H STROPN, CMP ####[facility] [address] [place], [place] [address]Dr. Erasmo Smith Glucose [Mass/Vol] 121 mg/dL Critically high 74-106 T [facility] Comment on above: Performed By: #### H STROPN, CMP ####[facility] [address] [place], [place] [address]Dr. Erasmo Smith Potassium [Moles/Vol] 3.2 mmol/L Critically low 3.5-5.1 [facility] Comment on above: Performed By: #### H STROPN, CMP ####[facility] [address] [place], [place] [address]Dr. Erasmo Smith Protein [Mass/Vol] 7.2 g/dL Normal 6.4-8.[address] [facility] Comment on above: Performed By: #### H STROPN, CMP ####[facility] [address] [place], [place] [address]Dr. Erasmo Smith Sodium [Moles/Vol] 138 mmol/L Normal 136-145 [facility] Comment on above: Performed By: #### H ALEXSANDER, CMP ####[facility] [address] [place] [address]Dr. Erasmo Smith Urea nitrogen [Mass/Vol] 17.0 mg/dL Normal 7.0-18.0 [facility] Comment on above: Performed By: #### H ALEXSANDER, CMP ####[facility] [address]vx[address]jkl[address] [place] [address]Dr. Erasmo Smith Urea nitrogen/Creatinine [Mass ratio] 24.6 mg/mg Normal [facility] Comment on above: Performed By: #### H ALEXSANDER, CMP ####[facility] [address] [place] [address]Dr. Erasmo Smith PROTIMEon 2022 INR Coag (PPP) [Relative time] 3.58 {INR} Normal [facility] Comment on above: Performed By: #### P T, PTT #### [facility] [address] [place] [address] Dr. Erasmo Smith INR GUIDELINES SEE BELOW Normal [facility] Comment on above: Result Comment: ABNER RED INR: 2.0 - 3.0 CONDITIONS NOT LISTED BELOW 2.5 - 3.5 FOR PROSTHETIC HEART VALVE REPLACEMENT 2.5 - 3.5 RECURRENT THROMBOSIS Performed By: #### P T, PTT #### [facility] [address] [place] [address] Dr. Erasmo Smith PT Coag (PPP) [Time] 35.3 s Critically high 9.0-11.6 [facility] Comment on above: Performed By: #### P T, PTT #### [facility] [address] [address] [address] Erasmo Smith PTTon 2022 aPTT Coag (Bld) [Time] 40.3 s Critically high 22.3-36.2 [facility] Comment on above: Performed By: #### P T, PTT #### [facility] [address] [place] [address] Dr. Erasmo Smith TROPONIN, HIGH SENSITIVITYon 2022 HSTROP 194.7 pg/mL Critically high 4.0-51.3 [facility] Comment on above: Result Comment: CUT- OFF POINTS HAVE BEEN ESTABLISHED BASED ON THE FOURTH UNIVERSAL DEFINITIONS OF MYOCARDIAL INFARCTION. THE UPPER REFERENCE LIMIT (URL) OF TROPONIN, DEFINED THE 99TH PERCENTILE OF cTnI DISTRIBUTION IN A REFERENCE POPULATION, HAS BEEN CONFIRMED THE DECISION THRESHOLD FOR [place] DIAGNOSIS. Performed By: #### C MREP #### [facility] [address] [address] [address] Erasmo Smith HSTROP 218.0 pg/mL Critically high 4.0-51.3 [facility] Comment on above: Result Comment: CUT- OFF POINTS HAVE BEEN ESTABLISHED BASED ON THE FOURTH UNIVERSAL DEFINITIONS OF MYOCARDIAL INFARCTION. THE UPPER REFERENCE LIMIT (URL) OF TROPONIN, DEFINED THE 99TH PERCENTILE OF cTnI DISTRIBUTION IN A REFERENCE POPULATION, HAS BEEN CONFIRMED THE DECISION THRESHOLD FOR [place] DIAGNOSIS. Performed By: #### B INFORMATION SERVICES MANAGER #### [facility] [address] [address] [address] Erasmo Smith XR CHEST 1 Von [...] by: HONG ALSTON Date: 2022 14:18 Normal [facility] MAMM SCREEN 3D TOÑITO CADon 11-26-2022 MG MAMM SCREEN 3D TOÑITO CAD Patient: BREANN STARKS Exam Date: 11/26/2022 : 1945 Gender:F Ordering : DR LUISANA JOHNSON . Admission #: [id number] Family : Order #: [id number] CLICK HERE TO VIEW EXAM RADIOLOGY REPORT [...] Treatments None Family Cancers None LOCATION: [facility] BREAST COMPOSITION: Heterogeneously dense,which [...] M.D. on 11/26/2022 at 14:13 Normal [facility] PROF 14(COMP METB)on 022 Albumin [Mass/Vol] 3.8 g/dL Normal 3.4-5.[address] [facility] Comment on above: Performed By: #### C MREP #### [facility] [address] [place] [address] Dr. Erasmo Smith Albumin/Globulin [Mass ratio] 0.8 {ratio} Normal [facility] Comment on above: Performed By: #### C MREP #### [facility] [address] [place] [address] Dr. Erasmo Smith ALP [Catalytic activity/Vol] 102 U/L Normal 46-116 [facility] Comment on above: Performed By: #### C MREP #### [facility] [address] [place] [address] Dr. Erasmo Smith ALT [Catalytic activity/Vol] 47 U/L Normal 14-59 [facility] Comment on above: Performed By: #### C MREP #### [facility] [address] [place] [address] Dr. Erasmo Smith Anion gap [Moles/Vol] 12.5 mmol/L Normal [facility] Comment on above: Performed By: #### C MREP #### [facility] [address] [place] [address] Dr. Erasmo Smith AST [Catalytic activity/Vol] 36 U/L Normal 15-37 [facility] Comment on above: Performed By: #### C MREP #### [facility] [address] [place] [address] Dr. Erasmo Smith Bilirubin [Mass/Vol] 0.3 mg/dL Normal 0.2-1.0 [facility] Comment on above: Performed By: #### C MREP #### [facility] [address] [place] [address] Dr. Erasmo Smith Calcium [Mass/Vol] 8.9 mg/dL Normal 8.5-10.[address] [facility] Comment on above: Performed By: #### C MREP #### [facility] [address] [place] [address] Dr. Erasmo Smith Chloride [Moles/Vol] 106 mmol/L Normal 98-107 [facility] Comment on above: Performed By: #### C MREP #### [facility] [address] [place] [address] Dr. Erasmo Smith CO2 [Moles/Vol] 26.9 mmol/L Normal 21.0-32.0 [facility] Comment on above: Performed By: #### C MREP #### [facility] [address] [place] [address] Dr. Erasmo Smith Creatinine [Mass/Vol] 0.79 mg/dL Normal 0.55-1.02 [facility] Comment on above: Performed By: #### C MREP #### [facility] [address] [place] [address] Dr. Erasmo Smith EGFR-AF IRANIAN >60 Normal >=60 [facility] Comment on above: Performed By: #### C MREP #### [facility] [address] [place] [address] Dr. Erasmo Smith EGFR-NON AF IRANIAN >60 Normal >=60 [facility] Comment on above: Performed By: #### C MREP #### [facility] [address] [address] [address] Erasmo Smith Globulin (S) [Mass/Vol] 4.6 g/dL Normal [facility] Comment on above: Performed By: #### C MREP #### [facility] [address] [address] [address] Erasmo Smith Glucose [Mass/Vol] 102 mg/dL Normal 74-[address] [facility] Comment on above: Performed By: #### C MREP #### [facility] [address] [address] [address] Erasmo Smith Potassium [Moles/Vol] 4.4 mmol/L Normal 3.5-5.1 [facility] Comment on above: Performed By: #### C MREP #### [facility] [address] [address] [address] Erasmo Smith Protein [Mass/Vol] 8.4 g/dL Critically high 6.4-8.2 T [facility] Comment on above: Performed By: #### C MREP #### [facility] [address] [address] [address] Erasmo Smith Sodium [Moles/Vol] 141 mmol/L Normal 136-[address] [facility] Comment on above: Performed By: #### C MREP #### [facility] [address] [address] [address] Erasmo Smith Urea nitrogen [Mass/Vol] 28.0 mg/dL Critically high 7.0-18.0 [facility] Comment on above: Performed By: #### C MREP #### [facility] [address] [address] [address] Erasmo Smith Urea nitrogen/Creatinine [Mass ratio] 35.4 mg/mg Normal [facility] Comment on above: Performed By: #### C MREP #### [facility] [address] [address] [address] Erasmo mSith CBC AUTO DIFFon 07-12-2022 BASO # 0.1 103/ul Normal 0.0-0.1 [facility] Comment on above: Performed By: #### B INFORMATION SERVICES MANAGER #### [facility] [address] [address] [address] Erasmo Smith Basophils/100 WBC (Bld) 0.5 % Normal 0.2-2.0 [facility] Comment on above: Performed By: #### B INFORMATION SERVICES MANAGER #### [facility] [address] [address] [address] Erasmo Smith EO # 0.2 103/ul Normal 0.0-0.7 [facility] Comment on above: Performed By: #### B INFORMATION SERVICES MANAGER #### [facility] [address] [address] [address] Erasmo Smith Eosinophils/100 WBC (Bld) 2.5 % Normal 0.9-7.0 [facility] Comment on above: Performed By: #### B INFORMATION SERVICES MANAGER #### [facility] [address] [place] [address] Dr. Erasmo Smith Erythrocyte distribution width (RBC) [Ratio] 17.2 % Critically high 11.0-15.0 [facility] Comment on above: Performed By: #### B INFORMATION SERVICES MANAGER #### [facility] [address] [place] [address] Dr. Erasmo Smith Hematocrit (Bld) [Volume fraction] 35.0 % Critically low 36.0-48.0 [facility] Comment on above: Performed By: #### B INFORMATION SERVICES MANAGER #### [facility] [address] [place] [address] Dr. Erasmo Smith Hemoglobin (Bld) [Mass/Vol] 11.3 g/dL Critically low 12.0-16.0 [facility] Comment on above: Performed By: #### B INFORMATION SERVICES MANAGER #### [facility] [address] [place] [address] Dr. Erasmo Smith IG # 0.02 10e3/ul Normal 0.00-0.03 [facility] Comment on above: Performed By: #### B INFORMATION SERVICES MANAGER #### [facility] [address] [address] [address] Erasmo Smith IG % 0.2 % Normal 0.0-0.5 [facility] Comment on above: Performed By: #### B INFORMATION SERVICES MANAGER #### [facility] [address] [place] [address] Dr. Erasmo Smith LYMPH # 2.3 103/ul Normal 1.2-3.8 [facility] Comment on above: Performed By: #### B INFORMATION SERVICES MANAGER #### [facility] [address] [place] [address] Dr. Erasmo Smith Lymphocytes/100 WBC (Bld) 25.4 % Normal 20.5-60.0 [facility] Comment on above: Performed By: #### B INFORMATION SERVICES MANAGER #### [facility] [address] [place] [address] Dr. Erasmo Smith MANUAL DIFF REQ NO Normal [facility] Comment on above: Performed By: #### B INFORMATION SERVICES MANAGER #### [facility] [address] [place] [address] Dr. Erasmo Smith MCH (RBC) [Entitic mass] 25.5 pg Critically low 26.7-34.0 [facility] Comment on above: Performed By: #### B INFORMATION SERVICES MANAGER #### [facility] [address] [place] [address] Dr. Erasmo Smith MCHC (RBC) [Mass/Vol] 32.3 g/dL Normal 29.9-35.2 [facility] Comment on above: Performed By: #### B INFORMATION SERVICES MANAGER #### [facility] [address] [place] [address] Dr. Erasmo Smith MCV (RBC) [Entitic vol] 78.8 fL Critically low 81.0-99.0 [facility] Comment on above: Performed By: #### B INFORMATION SERVICES MANAGER #### [facility] [address] [place] [address] Dr. Erasmo Smith MONO # 0.7 103/ul Normal 0.3-0.8 [facility] Comment on above: Performed By: #### B INFORMATION SERVICES MANAGER #### [facility] [address] [place] [address] Dr. Erasmo Smith Monocytes/100 WBC (Bld) 7.5 % Normal 1.7-12.0 [facility] Comment on above: Performed By: #### B INFORMATION SERVICES MANAGER #### [facility] [address] [place] [address] Dr. Erasmo Smith NEUT # 5.9 103/ul Normal 1.4-6.5 [facility] Comment on above: Performed By: #### B INFORMATION SERVICES MANAGER #### [facility] [address] [place] [address] Dr. Erasmo Smith Neutrophils/100 WBC (Bld) 63.9 % Normal 43.0-75.0 [facility] Comment on above: Performed By: #### B INFORMATION SERVICES MANAGER #### [facility] [address] [place] [address] Dr. Erasmo Smith Platelet mean volume (Bld) [Entitic vol] 9.0 fL Critically low 9.5-13.5 [facility] Comment on above: Performed By: #### B INFORMATION SERVICES MANAGER #### [facility] [address] [place] [address] Dr. Erasmo Smith PLT 305 103/ul Normal 150-450 [facility] Comment on above: Performed By: #### B INFORMATION SERVICES MANAGER #### [facility] [address] [place] [address] Dr. Erasmo Smith RBC 4.44 106/ul Normal 4.20-5.40 [facility] Comment on above: Performed By: #### B INFORMATION SERVICES MANAGER #### [facility] [address] [place] [address] Dr. Erasmo Smith WBC 9.2 103/ul Normal 4.0-11.0 [facility] Comment on above: Performed By: #### B INFORMATION SERVICES MANAGER #### [facility] [address] [place] [address] CHEST WO CONon [...] PAULA BROWN Date: 2022-05-27 15:27 Normal [facility] HEMOGLOBINon 04-20-2022 Hemoglobin (Bld) [Mass/Vol] 10.6 g/dL Critically low 12.0-16.0 [facility] Comment on above: Performed By: #### H GB ####[facility] [address] [place] [address]Dr. Erasmo Smith CULTURE SPUTUMon 04-02-2022 CULTURE SPUTUM Isolate 1 Pseudomonas aeruginosa Light growth of ORGANISM 1 Pseudomonas aeruginosa ANTIBIOTIC M.I.C RX STATUS Piperacillin/Tazobacta m 8 S F Ceftazidime 2 S F Imipenem 1 S F Amikacin <=2 S F Gentamicin <=1 S F Tobramycin <=1 S F Ciprofloxacin <=0.25 S F Levofloxacin 0.25 S F Normal [facility] Comment on above: Performed By: #### S PUTCX ####[facility] [address] [place] [address]Dr. Erasmo Smith CYTOLOGYon 03-30-2022 SENT TO REF LAB 03/31/22 Normal [facility] Comment on above: Performed By: #### C YTO #### [facility] [address] [place] [address] Dr. Erasmo Smith SPUTUM GRAM STAINon 03-30-20 COMMENTS Normal [facility] Comment on above: Performed By: #### B INFORMATION SERVICES MANAGER #### [facility] [address] [place] [address] Dr. Erasmo Smith DIPHTHEROIDS Normal [facility] Comment on above: Performed By: #### B INFORMATION SERVICES MANAGER #### [facility] [address] [address] [address] Erasmo Smith EPITHELIALS <25 Normal [facility] Comment on above: Performed By: #### B INFORMATION SERVICES MANAGER #### [facility] [address] [address] [address] Erasmo Smith FUNGAL ELEMENTS Normal [facility] Comment on above: Performed By: #### B INFORMATION SERVICES MANAGER #### [facility] [address] [address] [address] Erasmo Smith GRAM NEG BACILLI FEW [facility] Comment on above: Performed By: #### B INFORMATION SERVICES MANAGER #### [facility] [address] [address] [address] Erasmo Smith GRAM NEG DIPPLOCOCCI Normal [facility] Comment on above: Performed By: #### B INFORMATION SERVICES MANAGER #### [facility] [address] [address] [address] Erasmo Smith GRAM POS BACILLI [facility] Comment on above: Performed By: #### B INFORMATION SERVICES MANAGER #### [facility] [address] [address] [address] Erasmo Smith GRAM POSITIVE COCCI MANY Normal The [facility] Comment on above: Performed By: #### B INFORMATION SERVICES MANAGER #### [facility] [address] [address] [address] Erasmo Smith WBC (Bld) [#/Vol] 10*3/uL Normal [facility] Comment on above: Performed By: #### B INFORMATION SERVICES MANAGER #### [facility] [address] [address] [address] Erasmo Smith SPUTUM CULTUREon 03-01-2022 Epithelial cells LM Ql (Urine sed) Few Normal [facility] Comment on above: Performed By: #### C XSPTUM ####[facility] [address] [place] [address]Dr. Erasmo Smith Gram Stain Evaluation Comment Normal [facility] Comment on above: Result Comment: This specimen is of good quality and is acceptable for routine bacterial culture. Performed By: #### C XSPTUM ####[facility] [address] [place] [address]Dr. Erasmo Smith Lower Respiratory Culture Final report Normal [facility] Comment on above: Performed By: #### C XSPTUM ####[facility] [address] [place] [address]Dr. Erasmo Smith Result 1 Comment Normal [facility] Comment on above: Result Comment: Few gram positive cocci Performed By: #### C XSPTUM ####[facility] [address] [place] [address]Dr. Erasmo Smith Result Comment: Rout ine respiratory adria Result 2 Normal [facility] Comment on above: Performed By: #### C XSPTUM ####[facility] [address] [place], [place] [address]Dr. Erasmo Smith Result 3 Normal [facility] Comment on above: Performed By: #### C XSPTUM ####[facility] [address] [place], [place] [address]Dr. Erasmo Smith Result 4 Normal [facility] Comment on above: Performed By: #### C XSPTUM ####[facility] [address] [place], [place] [address]Dr. Erasmo Smith White Blood Cells Few Normal [facility] Comment on above: Performed By: #### C XSPTUM ####[facility] [address] [place] [address]Dr. Erasmo Smith BNPon 02-24-2022 Natriuretic peptide B (Bld) [Mass/Vol] 319.0 pg/mL Normal <=900.0 [facility] Comment on above: Performed By: #### B INFORMATION SERVICES MANAGER #### [facility] [address] [address] [address] Erasmo Smith CBC AUTO DIFFon 02-24-2022 BASO # 0.1 103/ul Normal 0.0-0.1 [facility] Comment on above: Performed By: #### C MREP #### [facility] [address] [address] [address] Erasmo Smith Basophils/100 WBC (Bld) 0.5 % Normal 0.2-2.0 [facility] Comment on above: Performed By: #### C MREP #### [facility] [address] [place] [address] Dr. Erasmo Smith EO # 0.3 103/ul Normal 0.0-0.7 [facility] Comment on above: Performed By: #### C MREP #### [facility] [address] [place] [address] Dr. Erasmo Smith Eosinophils/100 WBC (Bld) 3.1 % Normal 0.9-7.0 [facility] Comment on above: Performed By: #### C MREP #### [facility] [address] [place] [address] Dr. Erasmo Smith Erythrocyte distribution width (RBC) [Ratio] 15.1 % Critically high 11.0-15.0 [facility] Comment on above: Performed By: #### C MREP #### [facility] [address] [place] [address] Dr. Erasmo Smith Hematocrit (Bld) [Volume fraction] 33.9 % Critically low 36.0-48.0 [facility] Comment on above: Performed By: #### C MREP #### [facility] [address] [place] [address] Dr. Erasmo Smith Hemoglobin (Bld) [Mass/Vol] 10.7 g/dL Critically low 12.0-16.0 [facility] Comment on above: Performed By: #### C MREP #### [facility] [address] [place] [address] Dr. Erasmo Smith IG # 0.03 10e3/ul Normal 0.00-0.03 [facility] Comment on above: Performed By: #### C MREP #### [facility] [address] [place] [address] Dr. Erasmo Smith IG % 0.3 % Normal 0.0-0.5 [facility] Comment on above: Performed By: #### C MREP #### [facility] [address] [place] [address] Dr. Erasom Smith LYMPH # 2.8 103/ul Normal 1.2-3.8 [facility] Comment on above: Performed By: #### C MREP #### [facility] [address] [place] [address] Dr. Erasmo Smith Lymphocytes/100 WBC (Bld) 30.6 % Normal 20.5-60.0 [facility] Comment on above: Performed By: #### C MREP #### [facility] [address] [place] [address] Dr. Erasmo Smith MANUAL DIFF REQ NO Normal [facility] Comment on above: Performed By: #### C MREP #### [facility] [address] [place] [address] Dr. Erasmo Smith MCH (RBC) [Entitic mass] 26.9 pg Normal 26.7-34.0 [facility] Comment on above: Performed By: #### C MREP #### [facility] [address] [place] [address] Dr. Erasmo Smith MCHC (RBC) [Mass/Vol] 31.6 g/dL Normal 29.9-35.2 [facility] Comment on above: Performed By: #### C MREP #### [facility] [address] [place] [address] Dr. Erasmo Smith MCV (RBC) [Entitic vol] 85.2 fL Normal 81.0-99.0 [facility] Comment on above: Performed By: #### C MREP #### [facility] [address] [place] [address] Dr. Erasmo Smith MONO # 0.7 103/ul Normal 0.3-0.8 [facility] Comment on above: Performed By: #### C MREP #### [facility] [address] [place] [address] Dr. Erasmo Smith Monocytes/100 WBC (Bld) 7.9 % Normal 1.7-12.0 [facility] Comment on above: Performed By: #### C MREP #### [facility] [address] [place] [address] Dr. Erasmo Smith NEUT # 5.3 103/ul Normal 1.4-6.5 [facility] Comment on above: Performed By: #### C MREP #### [facility] [address] [address] [address] Erasmo Smith Neutrophils/100 WBC (Bld) 57.6 % Normal 43.0-75.0 [facility] Comment on above: Performed By: #### C MREP #### [facility] [address] [address] [address] Erasmo Smith Platelet mean volume (Bld) [Entitic vol] 9.0 fL Critically low 9.5-13.5 [facility] Comment on above: Performed By: #### C MREP #### [facility] [address] [address] [address] Erasmo Smith PLT 249 103/ul Normal 150-450 [facility] Comment on above: Performed By: #### C MREP #### [facility] [address] [address] [address] Erasmo Smith RBC 3.98 106/ul Critically low 4.20-5.40 [facility] Comment on above: Performed By: #### C MREP #### [facility] [address] [address] [address] Erasmo Smith WBC 9.1 103/ul Normal 4.0-11.0 [facility] Comment on above: Performed By: #### C MREP #### [facility] [address] [place] [address] Dr. Erasmo Smith CTA CHEST WO W CONon -15-2 022 CTA CHEST WO W CON EXAMINATION: [...] by: PAULA BROWN Date: 2022-02-24 18:24 Normal [facility] D-DIMERon 02-24-2022 D-DIMER 1.36 mg/L FEU Critically high <=0.59 [facility] Comment on above: Performed By: #### D DIM #### [facility] [address] [address] [address] Erasmo Smith D-DIMER COMMENTS SEE BELOW Normal [facility] Comment on above: Result Comment: Incr [...] hospitalization. Performed By: #### D DIM #### [facility] [address] [address] [address] Erasmo Smith PROF 14(COMP METB)on 022 Albumin [Mass/Vol] 3.6 g/dL Normal 3.4-5.[address] [facility] Comment on above: Performed By: #### C MREP #### [facility] [address] [address] [address] Erasmo Smith Albumin/Globulin [Mass ratio] 0.8 {ratio} Normal [facility] Comment on above: Performed By: #### C MREP #### [facility] [address] [address] [address] Erasmo Smith ALP [Catalytic activity/Vol] 95 U/L Normal 46-116 [facility] Comment on above: Performed By: #### C MREP #### [facility] [address] [address] [address] Erasmo Smith ALT [Catalytic activity/Vol] 45 U/L Normal 14-59 [facility] Comment on above: Performed By: #### C MREP #### [facility] [address] [address] [address] Erasmo Smith Anion gap [Moles/Vol] 15.9 mmol/L Normal [facility] Comment on above: Performed By: #### C MREP #### [facility] [address] [address] [address] Erasmo Smith AST [Catalytic activity/Vol] 33 U/L Normal 15-37 [facility] Comment on above: Performed By: #### C MREP #### [facility] [address] [address] [address] Erasmo Smith Bilirubin [Mass/Vol] 0.5 mg/dL Normal 0.2-1.0 [facility] Comment on above: Performed By: #### C MREP #### [facility] [address] [address] [address] Erasmo Smith Calcium [Mass/Vol] 9.1 mg/dL Normal 8.5-10.[address] [facility] Comment on above: Performed By: #### C MREP #### [facility] [address] [address] [address] Erasmo Smith Chloride [Moles/Vol] 103 mmol/L Normal 98-107 [facility] Comment on above: Performed By: #### C MREP #### [facility] [address] [address] [address] Erasmo Smith CO2 [Moles/Vol] 25.1 mmol/L Normal 21.0-32.0 [facility] Comment on above: Performed By: #### C MREP #### [facility] [address] [address] [address] Erasmo Smith Creatinine [Mass/Vol] 0.77 mg/dL Normal 0.55-1.02 [facility] Comment on above: Performed By: #### C MREP #### [facility] [address] [address] [address] Erasmo Smith EGFR-AF IRANIAN >60 Normal >=60 [facility] Comment on above: Performed By: #### C MREP #### [facility] [address] [address] [address] Erasmo Smith EGFR-NON AF IRANIAN >60 Normal >=60 [facility] Comment on above: Performed By: #### C MREP #### [facility] [address] [address] [address] Erasmo Smith Globulin (S) [Mass/Vol] 4.3 g/dL Normal [facility] Comment on above: Performed By: #### C MREP #### [facility] [address] [address] [address] Erasmo Smith Glucose [Mass/Vol] 92 mg/dL Normal 74-106 [facility] Comment on above: Performed By: #### C MREP #### [facility] [address] [address] [address] Erasmo Smith Potassium [Moles/Vol] 4.0 mmol/L Normal 3.5-5.1 [facility] Comment on above: Performed By: #### C MREP #### [facility] [address] [address] [address] Erasmo Smith Protein [Mass/Vol] 7.9 g/dL Normal 6.4-8.2 [facility] Comment on above: Performed By: #### C MREP #### [facility] [address] [address] [address] Erasmo Smith Sodium [Moles/Vol] 140 mmol/L Normal 136-145 [facility] Comment on above: Performed By: #### C MREP #### [facility] [address] [address] [address] Erasmo Smith Urea nitrogen [Mass/Vol] 17.0 mg/dL Normal 7.0-18.0 [facility] Comment on above: Performed By: #### C MREP #### [facility] [address] [address] [address] Erasmo Smith Urea nitrogen/Creatinine [Mass ratio] 22.1 mg/mg Normal [facility] Comment on above: Performed By: #### C MREP #### [facility] [address] [address] [address] Erasmo Smith PROTIMEon 02-24-2022 INR Coag (PPP) [Relative time] 2.28 {INR} Normal [facility] Comment on above: Performed By: #### P T, PTT ####[facility] [id number] [address]DrMeena Smith INR GUIDELINES SEE BELOW Normal [facility] Comment on above: Result Comment: ABNER RED INR: 2.0 - 3.0 CONDITIONS NOT LISTED BELOW 2.5 - 3.5 FOR PROSTHETIC HEART VALVE REPLACEMENT 2.5 - 3.5 RECURRENT THROMBOSIS Performed By: #### P T, PTT ####[facility] [id number] [address]Dr. Erasmo Smith PT Coag (PPP) [Time] 23.3 s Critically high 9.0-11.6 [facility] Comment on above: Performed By: #### P T, PTT ####[facility] [id number] [address]Dr. Erasmo Smith PTTon 02-24-2022 aPTT Coag (Bld) [Time] 34.7 s Normal 22.3-36.2 [facility] Comment on above: Performed By: #### P T, PTT ####[facility] [address] [place], [place] [address]Dr. Erasmo Smith TROPONIN, HIGH SENSITIVITYon 02-24-2022 HSTROP 6.6 pg/mL Normal 4.0-51.3 [facility] Comment on above: Result Comment: CUT- OFF POINTS HAVE BEEN ESTABLISHED BASED ON THE FOURTH UNIVERSAL DEFINITIONS OF MYOCARDIAL INFARCTION. THE UPPER REFERENCE LIMIT (URL) OF TROPONIN, DEFINED THE 99TH PERCENTILE OF cTnI DISTRIBUTION IN A REFERENCE POPULATION, HAS BEEN CONFIRMED THE DECISION THRESHOLD FOR [place] DIAGNOSIS. Performed By: #### C MREP #### [facility] [address] [place], [place] [address] Dr. Erasmo Smith PROTHROMBIN TIMEon INR Coag (PPP) [Relative time] 1.2 {INR} High 0.86-1.16 [facility] Comment on above: Result Comment: INR Theraputic Range: 2.0-3.5 Performed at [facility] [address] [facility] [address] PT Coag (PPP) [Time] 12.7 s Normal 9.3-12.7 [facility] ANTICOAGULANT COUMADIN Normal [facility] Vital Signs Date Time Vital Sign Value Performing Clinician Faci lity 04-24-2025 09:41-0400 Body height 144.8 cm Shannon Russo INFORMATION SERVICES MANAGER Work Phone: [facility] 04-24-2025 09:41-0400 Body mass index (BMI) [Ratio] 48.91 kg/m2 Shannon Russo INFORMATION SERVICES MANAGER Work Phone: [facility] 04-24-2025 09:41-0400 Body weight 102.51 kg Shannon uRsso INFORMATION SERVICES MANAGER Work Phone: [facility] 04-24-2025 09:41-0400 Diastolic blood pressure 68 mm[Hg] Shannon Russo INFORMATION SERVICES MANAGER Work Phone: [facility] 04-24-2025 09:41-0400 Heart rate 81 /min Shannon Russo INFORMATION SERVICES MANAGER Work Phone: [facility] 04-24-2025 09:41-0400 Respiratory rate 17 /min Shannon Russo INFORMATION SERVICES MANAGER Work Phone: [facility] 04-24-2025 09:41-0400 SaO2% (BldA) [Mass fraction] 97 % Shannon Russo INFORMATION SERVICES MANAGER Work Phone: [facility] 04-24-2025 09:41-0400 Systolic blood pressure 138 mm[Hg] Shannon Russo INFORMATION SERVICES MANAGER Work Phone: [facility] 04-18-2025 11:04-0400 Body height 175.3 cm Eleanor Hemmer PA Work Phone: [facility] 04-18-2025 11:04-0400 Body mass index (BMI) [Ratio] 33.34 kg/m2 Eleanor Hemmer PA Work Phone: [facility] 04-18-2025 11:04-0400 Body weight 102.42 kg Eleanor Hemmer PA Work Phone: [facility] 04-18-2025 11:04-0400 Diastolic blood pressure 68 mm[Hg] Eleanor Hemmer PA Work Phone: [facility] 04-18-2025 11:04-0400 Heart rate 71 /min Eleanor Hemmer PA Work Phone: [facility] 04-18-2025 11:04-0400 Respiratory rate 16 /min Eleanor Hemmer PA Work Phone: [facility] 04-18-2025 11:04-0400 SaO2% (BldA) [Mass fraction] 96 % Eleanor Hemmer PA Work Phone: [facility] 04-18-2025 11:04-0400 Systolic blood pressure 122 mm[Hg] Eleanor Hemmer PA Work Phone: [facility] 02-18-2025 11:38-0400 Body height 149.9 cm Renny Hansen MD Work Phone: [facility] 02-18-2025 11:38-0400 Body mass index (BMI) [Ratio] 45.04 kg/m2 Renny Hansen MD Work Phone: [facility] 02-18-2025 11:38-0400 Body weight 101.15 kg Renny Hansen MD Work Phone: [facility] 02-18-2025 11:38-0400 Diastolic blood pressure 72 mm[Hg] Renny Hansen MD Work Phone: [facility] 02-18-2025 11:38-0400 Heart rate 61 /min Renny Hansen MD Work Phone: [facility] 02-18-2025 11:38-0400 Respiratory rate 16 /min Renny Hansen MD Work Phone: [facility] 02-18-2025 11:38-0400 SaO2% (BldA) [Mass fraction] 96 % Renny Hansen MD Work Phone: [facility] 02-18-2025 11:38-0400 Systolic blood pressure 128 mm[Hg] Renny Hansen MD Work Phone: [facility] 12-17-2024 10:58-0400 Body height 149.9 cm Renny Hansen MD Work Phone: [facility] 12-17-2024 10:58-0400 Body mass index (BMI) [Ratio] 44.84 kg/m2 Renny Hansen MD Work Phone: [facility] 12-17-2024 10:58-0400 Body weight 100.7 kg Renny Hansen MD Work Phone: [facility] 12-17-2024 10:58-0400 Diastolic blood pressure 68 mm[Hg] Renny Hansen MD Work Phone: [facility] 12-17-2024 10:58-0400 Heart rate 75 /min Renny Hansen MD Work Phone: [facility] 12-17-2024 10:58-0400 SaO2% (BldA) [Mass fraction] 95 % Renny Hansen MD Work Phone: [facility] 12-17-2024 10:58-0400 Systolic blood pressure 130 mm[Hg] Renny Hansen MD Work Phone: [facility] 10-29-2024 14:47-0500 Body weight 98.42 kg Renny Hansen II Work Phone: [facility] 10-29-2024 14:47-0500 Diastolic blood pressure 65 mm[Hg] Renny Hansen II Work Phone: [facility] 10-29-2024 14:47-0500 Heart rate 66 /min Renny Hansen II Work Phone: [facility] 10-29-2024 14:47-0500 Respiratory rate 20 /min Renny Hansen II Work Phone: [facility] 10-29-2024 14:47-0500 SaO2% (BldA) [Mass fraction] 97 % Renny Hansen II Work Phone: [facility] 10-29-2024 14:47-0500 Systolic blood pressure 150 mm[Hg] Renny Hansen II Work Phone: [facility] 10-17-2024 11:35-0500 Body height 149.9 cm Renny Hansen MD Work Phone: [facility] 10-17-2024 11:35-0500 Body mass index (BMI) [Ratio] 44.23 kg/m2 Renny Hansen MD Work Phone: [facility] 10-17-2024 11:35-0500 Body weight 99.34 kg Renny Hansen MD Work Phone: [facility] 10-17-2024 11:35-0500 Diastolic blood pressure 76 mm[Hg] Renny Hansen MD Work Phone: [facility] 10-17-2024 11:35-0500 Heart rate 61 /min Renny Hansen MD Work Phone: [facility] 10-17-2024 11:35-0500 SaO2% (BldA) [Mass fraction] 97 % Renny Hansen MD Work Phone: [facility] 10-17-2024 11:35-0500 Systolic blood pressure 138 mm[Hg] Renny Hansen MD Work Phone: [facility] 10-04-2024 14:56-0500 Body height 149.9 cm Dmitriy Duque DO Work Phone: [facility] 10-04-2024 14:56-0500 Body mass index (BMI) [Ratio] 45.04 kg/m2 Dmitriy Duque DO Work Phone: [facility] 10-04-2024 14:56-0500 Body weight 101.15 kg Dmitriy Duque DO Work Phone: [facility] 10-04-2024 14:56-0500 Diastolic blood pressure 70 mm[Hg] Dmitriy Duque DO Work Phone: [facility] 10-04-2024 14:56-0500 Systolic blood pressure 120 mm[Hg] Dmitriy Duque DO Work Phone: [facility] 09-25-2024 11:13-0500 Body height 149.86 cm Renny Hansen II Work Phone: [facility] 09-25-2024 11:13-0500 Body mass index (BMI) [Ratio] 44.6 kg/m2 Renny Hansen II Work Phone: [facility] 09-25-2024 11:13-0500 Body temperature 97.3 [degF] Renny Hansen II Work Phone: [facility] 09-25-2024 11:13-0500 Body weight 100.24 kg Renny Hansen II Work Phone: [facility] 09-25-2024 11:13-0500 Diastolic blood pressure 69 mm[Hg] Renny Hansen II Work Phone: [facility] 09-25-2024 11:13-0500 Heart rate 72 /min Renny aHnsen II Work Phone: [facility] 09-25-2024 11:13-0500 Respiratory rate 16 /min Renny Hansen II Work Phone: [facility] 09-25-2024 11:13-0500 SaO2% (BldA) [Mass fraction] 98 % Renny Hansen II Work Phone: [facility] 09-25-2024 11:13-0500 Systolic blood pressure 173 mm[Hg] Renny Hansen II Work Phone: [facility] 09-19-2024 15:12-0500 Body height 149.9 cm Luisana Leal NP Work Phone: [facility] 09-19-2024 15:12-0500 Body mass index (BMI) [Ratio] 44.07 kg/m2 Luisana Lela INFORMATION SERVICES MANAGER Work Phone: [facility] 09-19-2024 15:12-0500 Body weight 98.97 kg Luisana Leal INFORMATION SERVICES MANAGER Work Phone: [facility] 09-19-2024 15:12-0500 Diastolic blood pressure 68 mm[Hg] Luisana Leal INFORMATION SERVICES MANAGER Work Phone: [facility] 09-19-2024 15:12-0500 Heart rate 63 /min Luisana Leal INFORMATION SERVICES MANAGER Work Phone: [facility] 09-19-2024 15:12-0500 Respiratory rate 18 /min Luisana Leal INFORMATION SERVICES MANAGER Work Phone: [facility] 09-19-2024 15:12-0500 SaO2% (BldA) [Mass fraction] 95 % Luisana Leal INFORMATION SERVICES MANAGER Work Phone: [facility] 09-19-2024 15:12-0500 Systolic blood pressure 128 mm[Hg] Luisana Leal INFORMATION SERVICES MANAGER Work Phone: [facility] 09-18-2024 10:09-0500 Body mass index (BMI) [Ratio] 43.83 kg/m2 Christopher Jose Roberto DO Work Phone: [facility] 09-18-2024 10:09-0500 Body weight 98.43 kg Christopher Jose Roberto DO Work Phone: [facility] 09-18-2024 10:09-0500 Diastolic blood pressure 86 mm[Hg] Christopher Jose Roberto DO Work Phone: [facility] 09-18-2024 10:09-0500 Heart rate 66 /min Christopher Jose Roberto DO Work Phone: [facility] 09-18-2024 10:09-0500 SaO2% (BldA) [Mass fraction] 91 % Christopher Jose Roberto DO Work Phone: [facility] 09-18-2024 10:09-0500 Systolic blood pressure 136 mm[Hg] Christopher Jose Roberto DO Work Phone: [facility] 09-10-2024 13:00-0500 Body temperature 97.2 [degF] Renny Hansen II Work Phone: [facility] 09-10-2024 13:00-0500 Diastolic blood pressure 67 mm[Hg] Renny Hansen II Work Phone: [facility] 09-10-2024 13:00-0500 Heart rate 72 /min Renny Hansen II Work Phone: [facility] 09-10-2024 13:00-0500 Respiratory rate 19 /min Renny Hansen II Work Phone: [facility] 09-10-2024 13:00-0500 SaO2% (BldA) [Mass fraction] 96 % Renny Hansen II Work Phone: [facility] 09-10-2024 13:00-0500 Systolic blood pressure 157 mm[Hg] Renny Hansen II Work Phone: [facility] 08-24-2024 13:00-0500 Body height 149.86 cm Renny Hansen II Work Phone: [facility] 08-24-2024 13:00-0500 Body mass index (BMI) [Ratio] 45.4 kg/m2 Renny Hansen II Work Phone: [facility] 08-24-2024 13:00-0500 Body temperature 97.8 [degF] Renny Hansen II Work Phone: [facility] 08-24-2024 13:00-0500 Body weight 102.05 kg Renny Hansen II Work Phone: [facility] 08-24-2024 13:00-0500 Diastolic blood pressure 69 mm[Hg] Renny Hansen II Work Phone: [facility] 08-24-2024 13:00-0500 Heart rate 61 /min Renny Hansen II Work Phone: [facility] 08-24-2024 13:00-0500 Respiratory rate 16 /min Renny Hansen II Work Phone: [facility] 08-24-2024 13:00-0500 SaO2% (BldA) [Mass fraction] 98 % Renny Hansen II Work Phone: [facility] 08-24-2024 13:00-0500 Systolic blood pressure 137 mm[Hg] Renny Hansen II Work Phone: [facility] 08-16-2024 10:33-0500 Body height 149.9 cm Renny Hansen MD Work Phone: [facility] 08-16-2024 10:33-0500 Body mass index (BMI) [Ratio] 44.23 kg/m2 Renny Hansen MD Work Phone: [facility] 08-16-2024 10:33-0500 Body weight 99.34 kg Renny Hansen MD Work Phone: [facility] 08-16-2024 10:33-0500 Diastolic blood pressure 80 mm[Hg] Renny Hansen MD Work Phone: [facility] 08-16-2024 10:33-0500 Heart rate 66 /min Renny Hansen MD Work Phone: [facility] 08-16-2024 10:33-0500 SaO2% (BldA) [Mass fraction] 95 % Renny Hansen MD Work Phone: [facility] 08-16-2024 10:33-0500 Systolic blood pressure 132 mm[Hg] Renny Hansen MD Work Phone: [facility] 08-02-2024 10:51-0500 Body height 149.9 cm Renny Hansen MD Work Phone: [facility] 08-02-2024 10:51-0500 Body mass index (BMI) [Ratio] 44.84 kg/m2 Renny Hansen MD Work Phone: [facility] 08-02-2024 10:51-0500 Body temperature 98.4 [degF] Renny Hansen MD Work Phone: [facility] 08-02-2024 10:51-0500 Body weight 100.7 kg Renny Hansen MD Work Phone: [facility] 08-02-2024 10:51-0500 Diastolic blood pressure 72 mm[Hg] Renny Hansen MD Work Phone: [facility] 08-02-2024 10:51-0500 Heart rate 60 /min Renny Hansen MD Work Phone: [facility] 08-02-2024 10:51-0500 SaO2% (BldA) [Mass fraction] 95 % Renny Hansen MD Work Phone: [facility] 08-02-2024 10:51-0500 Systolic blood pressure 134 mm[Hg] Renny Hansen MD Work Phone: [facility] 07-24-2024 10:48-0500 Body height 149.9 cm Eleanor Hemmer PA Work Phone: [facility] 07-24-2024 10:48-0500 Body mass index (BMI) [Ratio] 45.85 kg/m2 Eleanor Hemmer PA Work Phone: [facility] 07-24-2024 10:48-0500 Body weight 102.97 kg Eleanor Hemmer PA Work Phone: [facility] 07-24-2024 10:48-0500 Diastolic blood pressure 68 mm[Hg] Eleanor Hemmer PA Work Phone: [facility] 07-24-2024 10:48-0500 Heart rate 60 /min Eleanor Hemmer PA Work Phone: [facility] 07-24-2024 10:48-0500 SaO2% (BldA) [Mass fraction] 96 % Eleanor Hemmer PA Work Phone: [facility] 07-24-2024 10:48-0500 Systolic blood pressure 124 mm[Hg] Eleanor Hemmer PA Work Phone: [facility] 07-05-2024 08:50-0400 Body height 149.9 cm Renny Hansen MD Work Phone: [facility] 07-05-2024 08:50-0400 Body mass index (BMI) [Ratio] 46.66 kg/m2 Renny Hansen MD Work Phone: [facility] 07-05-2024 08:50-0400 Body weight 104.78 kg Renny Hansen MD Work Phone: [facility] 07-05-2024 08:50-0400 Diastolic blood pressure 74 mm[Hg] Renny Hansen MD Work Phone: [facility] 07-05-2024 08:50-0400 Heart rate 69 /min Renny Hansen MD Work Phone: [facility] 07-05-2024 08:50-0400 SaO2% (BldA) [Mass fraction] 96 % Renny Hansen MD Work Phone: [facility] 07-05-2024 08:50-0400 Systolic blood pressure 130 mm[Hg] Renny Hansen MD Work Phone: [facility] 05-31-2024 13:46-0400 Body height 149.9 cm Monster Calvillo INFORMATION SERVICES MANAGER Work Phone: [facility] 05-31-2024 13:46-0400 Body mass index (BMI) [Ratio] 47.87 kg/m2 Monster Calvillo INFORMATION SERVICES MANAGER Work Phone: [facility] 05-31-2024 13:46-0400 Body temperature 98.4 [degF] Monster Calvillo INFORMATION SERVICES MANAGER Work Phone: [facility] 05-31-2024 13:46-0400 Body weight 107.5 kg Monster Calvillo INFORMATION SERVICES MANAGER Work Phone: [facility] 05-31-2024 13:46-0400 Diastolic blood pressure 80 mm[Hg] Monster Calvillo INFORMATION SERVICES MANAGER Work Phone: [facility] 05-31-2024 13:46-0400 Heart rate 73 /min Monster Calvillo INFORMATION SERVICES MANAGER Work Phone: [facility] 05-31-2024 13:46-0400 SaO2% (BldA) [Mass fraction] 95 % Monster Valadezk INFORMATION SERVICES MANAGER Work Phone: [facility] 05-31-2024 13:46-0400 Systolic blood pressure 140 mm[Hg] Monster Valadezk INFORMATION SERVICES MANAGER Work Phone: [facility] 05-22-2024 13:17-0400 Body height 149.9 cm Boo Sherwin PA-C Work Phone: [facility] 05-22-2024 13:17-0400 Body mass index (BMI) [Ratio] 44.43 kg/m2 Boo Sherwin PA-C Work Phone: [facility] 05-22-2024 13:17-0400 Body weight 99.79 kg Boo Sherwin PA-C Work Phone: [facility] 03-02-2024 11:51-0400 Blood Pressure Location Jair NILL [facility] 03-02-2024 11:51-0400 Diastolic blood pressure 75 mm[Hg] Jair NILL [facility] 03-02-2024 11:51-0400 Heart rate 71 /min Jair NILL [facility] 03-02-2024 11:51-0400 Respiratory rate 16 /min Jair NILL [facility] 03-02-2024 11:51-0400 Systolic blood pressure 118 mm[Hg] Jair NILL [facility] 10-07-2021 16:00-0500 Body height 146.69 cm Hong Nevarez Other [employer] Other 10-07-2021 16:00-0500 Body mass index (BMI) [Ratio] 51.01 kg/m2 Hong Nevarez Other [employer] Other 10-07-2021 16:00-0500 Body weight 109.77 kg Hong Nevarez Other [employer] Other 08-26-2021 15:15-0500 Body height 146.69 cm Hong Nevarez Other [employer] Other 08-26-2021 15:15-0500 Body mass index (BMI) [Ratio] 51.07 kg/m2 Hong Nevarez Other [employer] Other 08-26-2021 15:15-0500 Body weight 109.91 kg Hong Nevarez Other [employer] Other Encounters Encounter Date Encounter Type Care Provider Facility Start: 04-24-2025 End: 04-24-2025 Bamboo flowsheet Shannon Russo INFORMATION SERVICES MANAGER Work Phone: [facility] Start: 04-24-2025 End: 04-25-2025 Bamboo flowsheet Shannon Russo INFORMATION SERVICES MANAGER Work Phone: [facility] [facility] Start: 04-24-2025 End: 04-24-2025 Clinisync Result Encounter Generic External Data Provider [facility] External Department Unsolicited Start: 04-24-2025 End: 04-25-2025 External Result Encounter Shannon Russo INFORMATION SERVICES MANAGER Work Phone: [facility] External Department Unsolicited Start: 04-24-2025 End: 04-24-2025 Office outpatient visit 25 minutes Shannon Russo INFORMATION SERVICES MANAGER Work Phone: [facility] Comment on above: Hematuria, unspecifi ed type Start: 04-24-2025 End: 04-24-2025 ambulatory SHANNON MORENOVELY Not Available Start: 04-18-2025 End: 04-18-2025 Bamboo flowsheet Eleanor [...] ELEANOR DUMONT Not Available Start: 02-22-2025 ambulatory [facility] Start: 02-21-2025 End: 02-21-2025 Clinisync Result Encounter Generic External Data Provider [facility] External Department Unsolicited Start: 02-21-2025 End: 02-21-2025 Clinisync Result Encounter Generic External Data Provider [facility] External Department Unsolicited Start: 02-20-2025 End: 02-20-2025 ambulatory JAIR [facility] Start: 02-18-2025 End: 02-18-2025 Bamboo flowsheet Renny [...] Start: 01-22-2025 End: 01-22-2025 ambulatory DMITRIY HENNESSY [facility] Start: 01-17-2025 End: 01-17-2025 ambulatory JAIR FLORIAN [facility] Start: 01-03-2025 ambulatory Renny Hansen Facility:[facility] Start: 01-01-2025 ambulatory [facility] Start: 12-24-2024 End: 12-24-2024 [facility] Start: 12-21-2024 End: 12-21-2024 Clinisync Result Encounter Generic External Data Provider [facility] External Department Unsolicited Start: 12-21-2024 End: 12-21-2024 Clinisync Result Encounter Generic External Data Provider [facility] External Department Unsolicited Start: 12-17-2024 End: 12-17-2024 Bamboo flowsheet Renny Hansen MD Work Phone: [facility] Start: 12-17-2024 End: 12-17-2024 [facility] Work Phone: [facility] [...] Murphy MD Facility:[facility] [place] Start: 11-27-2024 ambulatory [facility] Start: 11-27-2024 ambulatory [facility] Start: 11-13-2024 End: 11-13-2024 ambulatory [facility] Start: 11-09-2024 End: 11-12-2024 Telephone encounter Jr. Saikna Cardenas DO Work Phone: [facility] Comment on above: OP Note Start: 11-07-2024 End: 11-07-2024 Bamboo flowsheet Jr. Sakina Ovalle Stepanic DO Work Phone: [facility] Start: 11-07-2024 End: 11-07-2024 Bamboo flowsheet JrMeena Ovalle Stepanic DO Work Phone: [facility] Start: 11-07-2024 End: 11-07-2024 Office outpatient visit 15 minutes Jr. 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, initial encounter ([facility]); History of reverse total replacement of left shoulder joint Start: 11-07-2024 End: 11-07-2024 ambulatory SAKINA MARIO AMARILISJHONY Not Available Start: 10-29-2024 Registered Recurring Renny batista II Work Phone: [facility] Work Phone: Start: 10-29-2024 End: 10-29-2024 ambulatory Renny Hansen II Work Phone: [facility] Work Phone: Start: 10-29-2024 End: 10-29-2024 Patient encounter procedure Renny Hansen II Work Phone: [facility] Work Phone: Start: 10-29-2024 End: 10-29-2024 ambulatory Miguel Murphy MD Facility: [place] Start: 10-24-2024 End: 10-24-2024 Patient encounter procedure Renny Hansen II Work Phone: [facility] Work Phone: Start: 10-24-2024 End: 10-24-2024 ambulatory Renny Hansen II Work Phone: [facility] Work Phone: Start: 10-24-2024 End: 10-24-2024 Office outpatient visit 15 minutes Jr. Sakina Cardenas DO Work Phone: [facility] Comment on above: Injury of left shoul kathie and upper arm, sequela; Left shoulder pain, unspecified chronicity; 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, initial encounter ([facility]) Start: 10-24-2024 End: 10-24-2024 ambulatory SAKINA MARIO Not Available Start: 10-24-2024 End: 10-24-2024 Bamboo flowsheet Jr. Sakina Cardenas DO Work Phone: [facility] Start: 10-24-2024 End: 10-24-2024 Bamboo flowsheet Jr. Sakina Cardenas DO Work Phone: [facility] Start: 10-24-2024 End: 10-24-2024 External Result [...] encounter procedure Renny Hansen II Work Phone: [facility] Start: 10-16-2024 End: 10-16-2024 ambulatory Renny Hansen II Work Phone: [facility] Work Phone: Start: 10-09-2024 End: 10-09-2024 Clinisync [...] End: 10-02-2024 External Result Encounter Katharina Toledo INFORMATION SERVICES MANAGER Work Phone: [facility] External Department Unsolicited Start: 10-02-2024 End: 10-02-2024 External Result Encounter Katharina Toledo INFORMATION SERVICES MANAGER Work Phone: [facility] External Department Unsolicited Start: 10-02-2024 Registered Recurring Renny Dominik batista II Work Phone: [facility] Work Phone: Start: 09-25-2024 End: 09-25-2024 ambulatory Renny Hansen II Work Phone: [facility] Work Phone: Start: 09-25-2024 End: 09-25-2024 Patient encounter procedure Renny Hansen II [facility] Work Phone: Start: 09-24-2024 End: 09-24-2024 ambulatory [facility] Start: 09-19-2024 End: 09-19-2024 ambulatory LUISANA LEAL Not Available Start: 09-19-2024 End: 09-19-2024 Office outpatient visit 25 minutes Luisana Leal INFORMATION SERVICES MANAGER Work Phone: [facility] Comment on above: Acute cystitis with hematuria (Primary Dx); Burning with urination; Centrilobular emphysema (CMS/HCC); Morbid (severe) obesity due to excess calories (CMS/HCC); Body mass index (BMI) 40.0-44.9, adult (CMS/HCC); Chronic obstructive pulmonary disease, unspecified (CMS/HCC); Pulmonary hypertension, unspecified (CMS/HCC); Need for vaccination Start: 09-18-2024 End: 09-18-2024 Bamboo flowsheet Jonatanjovany Brightett DO Work Phone: [employer] [facility] Start: 09-18-2024 End: 09-18-2024 Bamboo flowsheet Toniamaury Brightett DO Work Phone: [employer] [facility] Start: 09-18-2024 End: 09-18-2024 Office outpatient new 45 minutes Salome Cid DO Work Phone: [employer] [facility] Comment on above: Axillary lymphadenop athy (Primary Dx); Neck pain on left side; Left arm pain Start: 09-18-2024 End: 09-18-2024 ambulatory SALOME CID Not Available Start: 09-14-2024 End: 09-14-2024 Refill Renny Hansen MD Work Phone: [facility] Comment on above: Persistent atrial fi brillation (HCC) (CMS/HCC) Start: 09-10-2024 End: 09-10-2024 ambulatory Miguel Murphy MD Facility:[facility] Start: 08-24-2024 End: 08-24-2024 Patient encounter procedure Renny Hansen II Work Phone: [facility] Work Phone: Start: 08-24-2024 End: 08-24-2024 ambulatory Pedro Pablo Cruz Facility:[facility] Start: 08-24-2024 End: 08-24-2024 External Result Encounter Katharina Toledo INFORMATION SERVICES MANAGER Work Phone: [facility] External Department Unsolicited Start: 08-24-2024 End: 08-24-2024 External Result Encounter Katharina Madai Toledo INFORMATION SERVICES MANAGER Work Phone: [facility] External Department Unsolicited Start: 08-24-2024 End: 08-24-2024 Patient encounter procedure Renny Hansen II Work Phone: [facility] Work Phone: Start: 08-20-2024 End: 08-20-2024 ambulatory Miguel Murphy MD Facility:[facility] Start: 08-16-2024 End: 08-16-2024 Bamboo flowsheet [...] Not Available Start: 07-18-2024 End: 07-18-2024 ambulatory [facility] Start: 07-16-2024 End: 07-16-2024 Refill Monster Calvillo INFORMATION SERVICES MANAGER Work Phone: [facility] Comment on [...] Available Start: 06-19-2024 End: 06-19-2024 ambulatory DMITRIY [facility] Start: 06-18-2024 End: 06-18-2024 Refill Monster Calvillo INFORMATION SERVICES MANAGER Work Phone: [facility] Comment on above: Acute on chronic nisa stolic (congestive) heart failure (CMS/HCC) Start: 05-31-2024 End: 05-31-2024 Bamboo flowsheet Monster Pearsontrick INFORMATION SERVICES MANAGER Work Phone: [facility] Start: 05-31-2024 End: 05-31-2024 Bamboo flowsheet Monster Valadezk INFORMATION SERVICES MANAGER Work Phone: [facility] Start: 05-31-2024 End: 05-31-2024 Office outpatient visit 15 minutes Monster Calvillo INFORMATION SERVICES MANAGER Work Phone: [facility] Comment on above: Acute on chronic nisa stolic (congestive) heart failure (CMS/HCC) (Primary Dx) Start: 05-31-2024 End: 05-31-2024 ambulatory MONSTER CALVILLO Not Available Start: 05-22-2024 End: 05-22-2024 ambulatory Jyothi Cruz RT(R) Radiology Comment on above: Radiology XR Start: 05-22-2024 End: 05-22-2024 Patient encounter procedure Jyothijoselito AcostaMatt RT(R) Radiology Comment on above: Pain due [...] on above: Acute pain of left s hosergio (Primary Dx); History of reverse total replacement of left shoulder joint Start: 05-09-2024 End: 05-09-2024 ambulatory SAKINA MARIO Not Available Start: 05-02-2024 End: 05-02-2024 Patient encounter procedure MD Shaikh Denis Work Phone: [facility] Work Phone: Start: 05-02-2024 End: 05-02-2024 ambulatory MD Shaikh Denis Work Phone: [facility] Work Phone: Start: 04-16-2024 End: 04-16-2024 ambulatory Miguel Koas Katherine CUBA Facility:[facility] [place] Start: 04-10-2024 End: 04-10-2024 ambulatory MD Shaikh Denis Work Phone: [facility] Work Phone: Start: 04-10-2024 End: 04-10-2024 Patient encounter procedure MD Shaikh Denis Work Phone: [facility] Work Phone: Start: 04-02-2024 End: 04-02-2024 ambulatory Miguel Murphy MD Facility:[facility] [place] Start: 03-29-2024 End: 03-29-2024 ambulatory MD Shaikh Denis Work Phone: [facility] Work Phone: Start: 03-29-2024 End: 03-29-2024 Patient encounter procedure MD Shaikh Denis Work Phone: [facility] Start: 03-07-2024 End: 03-07-2024 ambulatory Jair ALEXANDER Facility:CD:[id number] Start: 03-02-2024 End: 03-02-2024 ambulatory Jair ALEXANDER Facility:[facility] Start: 03-02-2024 End: 03-02-2024 Patient encounter procedure Jair ALEXANDER [facility] Start: 03-01-2024 ambulatory Jair PARKAnkur Facility:[facility] Start: 10-17-2023 Cristobal Denis MD Work Phone: [facility] Start: 10-17-2023 Cristobal Denis MD Work Phone: [facility] Start: 10-11-2023 End: 10-11-2023 ambulatory MD Shaikh Denis Work Phone: [facility] Work Phone: Start: 10-11-2023 End: 10-11-2023 Patient encounter procedure MD Shaikh Denis Work Phone: [facility] Work Phone: Start: 09-08-2023 End: 09-08-2023 ambulatory MD Shaikh Densi Work Phone: [facility] Work Phone: Start: 09-08-2023 End: 09-08-2023 Patient encounter procedure MD Shaikh Denis Work Phone: [facility] Start: 09-06-2023 Patient encounter [...] End: 02-25-[address] LUISANA JOHNSON . Facility: Start: 10-07-2021 End: 10-07-2021 ambulatory Hong Nevarez Other [employer] Other Start: 10-07-2021 Office outpatient vi sit 15 minutes Hong Geri [facility] Start: 08-26-2021 End: 08-26-2021 ambulatory Hong Nevarez Other [employer] Other Start: 08-26-2021 Office outpatient ne w 45 minutes Hong Nevarez [facility] Start: 10-11-2020 End: 10-13-2020 Evaluation and management of inpatient ZANE MAYNOR Facility:[facility] Procedures Date Procedure Procedure Detail Performing Clinician Start: 04-24-2025 ALL CBC WITH AUTO DIFF Generic External Data Provider Start: 04-24-2025 Urnls dip stick/tabl et rgnt non-auto w/o micrscp Shannon Russo INFORMATION SERVICES MANAGER Work Phone: Start: 04-24-2025 URINARY TRACT INFECT ION (HTRX) Shannon Russo INFORMATION SERVICES MANAGER Work Phone: Start: 02-21-2025 ALL BASIC METABOLIC [...] Provider Start: 10-02-2024 ISTAT XRAY CRE Katharina Madai Alysa herrera INFORMATION SERVICES MANAGER Work Phone: Start: 10-02-2024 CT of left shoulder with contrast Renny Hansen II Work Phone: Start: 09-19-2024 Urnls dip stick/tabl et rgnt non-auto w/o micrscp Luisana Leal INFORMATION SERVICES MANAGER Work Phone: Start: 08-24-2024 Complete blood count with white cell differential, automated Katharina Aj Tre INFORMATION SERVICES MANAGER Work Phone: Start: 07-24-2024 ALL CBC WITH AUTO DIFF Eleanor Dumont PA Work Phone: Start: 07-24-2024 [employer] Filippo Dumont PA Work Phone: Start: 07-24-2024 Transferrin [Mass/vo lume] in Serum or Plasma Eleanor SANTOS Work Phone: Start: 05-22-2024 Radex shoulder compl ete minimum 2 views Boo MARKC Work Phone: Start: 05-09-2024 ALL CBC WITH [...] of right tot al knee replacement Jair NILREH Start: 09-12-2001 History of left tota l knee replacement Jair Mechanology Appendectomy Jair PARKL Arthroscopy of knee Jair NILREH Comment on above: 06/2012 Arthroscopy of shoulder Brice parikhankur Mechanology Comment on above: left shoulder tear r epaired 08/25 Cardiac catheter (ph ysical object) Jair PARKREH Comment on above: 12/21/ mild CAD Colonoscopy Jair PARKREH Comment on above: 2012 repeat 10 years Ligation of fallopian tube Nathna ALEXANDER Repair of musculoten dinous cuff of shoulder Jair Mechanology Comment on above: right Total abdominal hyst erectomy with bilateral salpingo-oophorectomy Jair Mechanology Plan of Treatment Date Care Activity Detail [...] 11:00 AM EDT Office Visit [facility] [place] [facility] [address] [place] [address] Eleanor Dumont PA [address] [place] [address] Arrived [facility] [facility] Comment on above: Arrived Start: 02-18-2025 End: [...] EST Office Visit [facility] [address] [facility] [address] [place] [id number] Dmitriy Duque DO [address] [facility] 150 [place] [address] [facility] Start: 10-24-2024 End: 10-24-2024 Patient encounter procedure 10/24/2024 2:15 PM EST Office Visit [facility] [address] [place] [phone] Jr. Sakina Cardenas, DO [address] [facility] [address] [place] [address] Injury of left shoulder and upper arm, sequela; Left shoulder pain, unspecified chronicity [facility] Comment on above: Injury of left shoul kathie and upper arm, sequela; Left shoulder pain, unspecified chronicity Start: 10-17-2024 End: 10-17-2024 Patient encounter procedure [facility] Comment on above: Arrived Start: 10-04-2024 End: 10-04-2024 Patient encounter procedure 10/04/2024 3:45 PM EST Consult [facility] [address] [facility] [address] [place] [phone] Dmitriy Duque, DO [address] [place] [address] [facility] Start: 09-25-2024 Patient referral [facility] Work Phone: Start: 09-19-2024 End: 09-19-2024 Patient encounter procedure 09/19/2024 3:00 PM EST Office Visit [facility] [address] [facility] [address] [place] [phone] Luisana Leal, INFORMATION SERVICES MANAGER [address] [facility] [address] [place] [address] [facility] Start: 09-19-2024 End: 09-19-2025 URINARY TRACT INFECTION (HTRX) URINARY TRACT INFECTION (HTRX) Lab Routine Burning with urination Expected: 09/19/2024 (Approximate), Expires: 09/19/2025 [facility] Work Phone: Comment on above: Expected: 09/19/2024 (Approximate), Expires: 09/19/2025 Start: 09-18-2024 End: 09-18-2024 Patient encounter procedure 09/18/2024 10:15 AM EST Office Visit [facility] [place] [address] [place] [address] Salome Cid DO [address] [place] [address] Neck pain on left side [facility] Comment on above: Neck pain on left si de Start: 09-14-2024 End: 09-14-2024 Patient encounter procedure 09/14/2024 10:00 AM EST Office Visit [facility] [address] [place] [address] Renny Hansen MD [address] [place] [address] [facility] Start: 09-10-2024 [facility] Start: 09-10-2024 [facility] Start: 09-06-2024 Medicare Annual Well ness (AWV) Medicare Annual Wellness (AWV) [facility] Start: 09-03-2024 [facility] Start: 08-31-2024 [facility] Start: 08-31-2024 [facility] Start: 08-23-2024 End: 08-23-2024 Patient encounter procedure 08/23/2024 11:45 AM EST Office Visit [facility] [address] [place] [address] Renny Hansen MD [address] [place] [address] [facility] Start: 08-16-2024 End: 08-16-2024 Patient encounter procedure 08/16/2024 10:30 AM EST Office Visit [facility] [address] [place] [address] Renny Hansen MD [address] [place] [address] [facility] Start: 08-02-2024 End: 08-02-2025 RF Upper gastrointestinal tract and Small bowel Single view W contrast PO FL upper GI double contrast w KUB Imaging Routine Nausea Expected: 08/02/2024, Expires: 08/02/2025 [facility] Work Phone: Comment on above: Expected: 08/02/2024 , Expires: 08/02/2025 Start: 08-02-2024 End: 08-02-2024 Patient encounter procedure [facility] Comment on above: Arrived Start: 07-24-2024 End: 07-24-2025 CBC W Auto Differential panel - Blood CBC and differential Lab Routine 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 Iron deficiency anemia due to chronic blood loss Expected: 07/24/2024 (Approximate), Expires: 07/24/2025 [facility] Healthcare Work Phone: Comment on above: Expected: 07/24/2024 (Approximate), Expires: 07/24/2025 Start: 07-24-2024 End: 07-24-2025 Iron + transferrin + TIBC Iron + transferrin + TIBC Lab Routine 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 Iron deficiency anemia due to chronic blood loss Expected: 07/24/2024 (Approximate), Expires: 07/24/2025 [facility] Comment on above: Expected: 07/24/2024 (Approximate), Expires: 07/24/2025 Start: 07-19-2024 End: 07-19-2024 Patient encounter procedure 07/19/2024 12:00 PM EST Procedure Visit [facility] [address] [place] [address] [facility] Start: 07-05-2024 End: 07-05-2025 EMG AND NERVE CONDUCTION STUDY EMG AND NERVE CONDUCTION STUDY Neurology Routine Neck pain on left side Radicular pain in left arm Expected: 07/05/2024 (Approximate), Expires: 07/05/2025 [facility] Healthcare Comment on above: Expected: 07/05/2024 [...] Visit [facility] [address] [place] [address] Monster Calvillo NP [address] [place] [address] Arrived [facility] Comment on above: Arrived Start: 05-22-2024 End: 08-21-2024 C reactive protein [Mass/volume] in Serum or Plasma C-REACTIVE PROTEIN Lab Routine 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 Comment on above: Expected: 05/22/2024 , Expires: 08/21/2024 Start: 05-22-2024 End: 05-22-2024 Patient encounter procedure 05/22/2024 2:00 PM EDT Office Visit [facility] [address] [place] [address] Monster Calvillo NP [address] [place] [address] [facility] Start: 05-13-2024 Covid-19 Vaccine () Covid-19 Vaccine () [facility] Start: 05-13-2024 Influenza vaccination Influenza Vacc ine (#1) [facility] Start: 05-09-2024 End: 05-09-2024 Patient encounter procedure 05/09/2024 10:00 AM EDT Office Visit [facility] [address] [place] [phone] Jr. Sakina Cardenas, DO [address] [facility] 150 [place] [address] [facility] Start: 11-07-2023 End: 11-07-2023 Patient encounter procedure 11/07/2023 2:30 PM EST Office Visit [facility] [address] [place] [address] Shaikh Denis MD [address] [place] [phone] [facility] Start: 10-17-2023 End: 10-17-2023 Patient encounter procedure 10/17/2023 10:15 AM EST Office Visit [facility] [address] [place] [address] Shaikh Denis MD [address] [place] [phone] Arrived [facility] Comment on above: Arrived Start: 09-12-2023 Advance Directive Discussion Advance Directive Discussion [facility] Start: 11-30-2012 Screening for osteoporosis Bone Dens ity Screening [facility] Start: 11-30-1997 Shingrix Vaccine (1 of 2) Reyes grix Vaccine (1 of 2) [facility] [facility] Start: 11-30-1992 Diabetes Screening Diabetes Screenin g [facility] Start: 11-30-1966 Urine microalbumin profile DTa P,Tdap,Td Vaccine (1 - Tdap) [facility] Start: 11-30-1965 Anxiety Screening Anxiety Screening [facility] Start: 11-30-1965 Depression Screening Depression Scre ening [facility] Start: 11-30-1965 Hepatitis C screening Hepatitis C Sc reening [facility] Start: 1945 Screening for malign ant neoplasm of colon [facility] CBC W Auto Different ial panel - Blood CBC auto differential Lab Routine 10/02/2024 11:54 AM EST [facility] Work Phone: CBC W Auto Different ial panel - Blood [facility] Work Phone: Comment on above: Ordered: 10/24/2024 Comprehensive metabo lic 2000 panel - Serum or Plasma [facility] Comprehensive metabo lic 2000 panel - Serum or Plasma [facility] CT Shoulder - left W contrast IV [facility] End: 06-21-2025 CT Shoulder - left WO contrast CT SHOULDER WO IVCON LEFT Radiology Routine 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 Work Phone: [facility] Immunizations Immunization Date Immunization Notes Care Provider [facility] 09-19-2024 Influenza, High-dose Seasonal, Quadrivalent, Preservative Free Luisana Leal INFORMATION SERVICES MANAGER Work Phone: [facility] 09-19-2024 influenza virus vacc ine, unspecified formulation Eleanor Dumont PA Work Phone: [facility] 08-25-2023 influenza virus vacc ine, unspecified formulation Jair ALEXANDER [facility] 08-25-2023 Influenza, Seasonal, Quadrivalent, Adjuvanted Shaikh Cira CUBA Work Phone: [facility] 08-25-2023 RSV, recombinant, protein subunit RSVpreF, adjuvant reconstitu, 120mcg/0.5mL, PF (Arexvy) Shaikh Cira CUBA Work Phone: [facility] 07-08-2022 influenza virus vacc ine, unspecified formulation Jair ALEXANDER [facility] 07-08-2022 Influenza, Seasonal, Quadrivalent, Adjuvanted Shaikh Cira CUBA Work Phone: [facility] 08-20-2021 influenza virus vacc ine, unspecified formulation Jair ALEXANDER [facility] 08-20-2021 Influenza, Seasonal, Quadrivalent, Adjuvanted Shaikh Cira CUBA Work Phone: [facility] 08-20-2021 pneumococcal polysaccharide vaccine, 23 valent Jair ALEXANDER [facility] 11-18-2020 SARS-CoV-2 (COVID-19 ) mRNA-1273 vaccine Jair ALEXANDER [facility] 10-20-2020 SARS-CoV-2 (COVID-19 ) mRNA-1273 vaccine Jair ALEXANDER [facility] 08-04-2020 influenza virus vacc ine, unspecified formulation Jair PARKL [facility] 08-04-2020 Influenza, Seasonal, Quadrivalent, Adjuvanted Shaikh Cira CUBA Work Phone: [facility] 08-04-2020 pneumococcal conjuga te vaccine, 13 valent Jair NILL [facility] 08-06-2019 influenza virus vacc ine, unspecified formulation Jair NILL [facility] 08-06-2019 influenza, high dose seasonal, preservative-free Shaikh Cira CUBA Work Phone: [facility] 07-05-2017 influenza virus vacc ine, unspecified formulation Jair NILL [facility] 07-05-2017 pneumococcal conjuga te vaccine, 13 valent Jair ALEXANDER [facility] 07-05-2017 Seasonal trivalent influenza vaccine, adjuvanted, preservative free Shaikh Cira CUBA Work Phone: [facility] 06-29-2016 influenza virus vacc ine, unspecified formulation Jair ALEXANDER [facility] 06-29-2016 Seasonal trivalent influenza vaccine, adjuvanted, preservative free Shaikh Cira CUBA Work Phone: [facility] 06-25-2015 influenza virus vacc ine, unspecified formulation Jair ALEXANDER [facility] 06-25-2015 influenza, injectabl e, quadrivalent, contains preservative Shaikh Cira CUBA Work Phone: [facility] 06-12-2015 influenza virus vacc ine, unspecified formulation Jair ALEXANDER [facility] 06-12-2015 seasonal influenza, intradermal, preservative free Shaikh Cira CUBA Work Phone: [facility] 07-12-2014 influenza virus vacc ine, unspecified formulation Jair PARKAnkur [facility] 07-12-2014 influenza, injectabl e, quadrivalent, contains preservative Shaikh Cira CUBA Work Phone: [facility] 08-07-2013 influenza virus vacc ine, unspecified formulation Jair CATHERINE [facility] 08-07-2013 influenza, seasonal, injectable Shaikh Cira CUBA Work Phone: [facility] Payers Date Payer Category Payer Unknown [id number] 2024 Medicare (Managed Care) [employer] MEDICARE [id number] 2024 Unknown [id number] 2024 Unknown 2024 Self-pay [id number] 2023 Medicaid [employer] MEDICARE A DVANTAGE [id number] 2023 Private Health Insurance [facility] [id number] 2023 Private Health Insurance 2023 Managed Care HMO (unspecified) OSEI FRANZ [id number] 2023-Present [address] [place] [id number] HMO [id number] 2007 Medicare [id number] 1959 Medicare [id number] 1959 Private Health Insurance [facility] [id number] 1945 Unknown [id number] 2.16.840.1.784961.3.579.2. 647 1947 Unknown [id number] 2.16.840.1.425148.3.579.2. 593 1947 Unknown [id number] 2.16.840.1.030155.3.579.2. 593 1947 Unknown [id number] 2.840.1.920015.3.579.2. 593 1947 Unknown [id number] 2.16.840.1.489774.3.579.2. 593 1947 Unknown [id number] 2.16.840.1.426516.3.579.2. 593 1947 Unknown [id number] 2.16.840.1.161576.3.579.2. 593 1947 Unknown [id number] 2.16.840.1.889335.3.579.2. 593 1947 Unknown [id number] 2.16.840.1.887246.3.579.2. 593 1947 Unknown [id number] 2.16.840.1.056378.3.579.2. 593 1947 Unknown [id number] 2.16.840.1.335566.3.579.2. 593 1947 Unknown [id number] 2.16.840.1.475704.3.579.2. 593 1947 Unknown [id number] 2.16.840.1.978059.3.579.2. 593 1947 Unknown [id number] 2.16.840.1.306562.3.579.2. 593 1947 Unknown [id number] 2.16.840.1.817569.3.579.2. 593 1947 Unknown [id number] 2.16.840.1.796102.3.579.2. 593 1947 Unknown [id number] 2.16.840.1.216881.3.579.2. 593 1947 Unknown [id number] 2.16.840.1.899292.3.579.2. 593 1947 Unknown [id number] 2.16.840.1.007567.3.579.2. 593 1947 Unknown [id number] 2.16.840.1.021199.3.579.2. 593 1947 Unknown [id number] 2.16.840.1.068720.3.579.2. 593 1947 Unknown [id number] 2.16.840.1.632974.3.579.2. 593 1947 Unknown [id number] 2.16.840.1.294242.3.579.2. 593 1947 Unknown [id number] 2.16.840.1.223327.3.579.2. 593 1947 Unknown [id number] 2.16.840.1.092530.3.579.2. 593 1947 Unknown [id number] 2.16.840.1.690879.3.579.2. 593 1947 Unknown [id number] 2.16.840.1.532427.3.579.2. 593 1947 Unknown [id number] 2.16.840.1.397949.3.579.2. 727 1947 Unknown [id number] 2.16.840.1.145324.3.579.2. 727 1947 Unknown [id number] 2.16.840.1.868484.3.579.2. 196 1947 Unknown [id number] 2.16840.1.769750.3.579.2. 196 1947 Unknown [id number] 2.16.840.1.502090.3.579.2. 196 1947 Unknown [id number] 2.16.840.1.048271.3.579.2. 196 1947 Unknown [id number] 2.16.840.1.484300.3.579.2. 196 1947 Unknown [id number] 2.16840.1.543124.3.579.2. 196 1947 Unknown [id number] 2.16.840.1.668546.3.579.2. 196 1947 Unknown [id number] 2.16.840.1.607001.3.579.2. 1259 1947 Unknown [id number] 2.16.840.1.752421.3.579.2. 1259 1947 Unknown [id number] 2.16.840.1.956719.3.579.2. 1259 1947 Unknown [id number] 2.16.840.1.400781.3.579.2. 1258 1947 Unknown [id number] 2.16.840.1.457747.3.579.2. 1258 1947 Unknown [id number] 2.16.840.1.807594.3.579.2. 1258 1947 Unknown [id number] 2.16.840.1.223212.3.579.2. 1258 1947 Unknown [id number] 2.16.840.1.278951.3.579.2. 1258 1947 Unknown [id number] 2.16.840.1.447704.3.579.2. 1258 1947 Unknown [id number] 2.16.840.1.592766.3.579.2. 1258 1947 Unknown [id number] 2.16.840.1.184139.3.579.2. 1258 1947 Unknown [id number] 2.16.840.1.679207.3.579.2. 1258 1947 Unknown [id number] 2.16.840.1.073899.3.579.2. 1258 1947 Unknown [id number] 2.16.840.1.793609.3.579.2. 1258 1947 Unknown [id number] 2.16.840.1.703130.3.579.2. 1258 1947 Unknown [id number] 2.16.840.1.455148.3.579.2. 1258 1947 Unknown [id number] 2.16.840.1.325601.3.579.2. 1259 Medicare Medicare Outpatient [id number] [id number] Unknown [place] [employer] [place] [id number] Unknown [id number] 2.16.840.1.726427.3.579.2. 531 Unknown [id number] 2.16.840.1.286087.3.579.2. 531 Unknown [id number] 2.16.840.1.300910.3.579.2. 531 Unknown [id number] 2.16840.1.883369.3.579.2. 531 Unknown [id number] 2.16.840.1.803309.3.579.2. 531 Social History Date Type Detail Facility Start: 08-30-2023 End: 11-12-2024 Sex Assigned At [facility] Start: 1945 Sex Assigned At [facility] Start: 08-18-2023 End: 10-17-2024 Tobacco smoking status [facility] Ex-smoker [facility] Start: 09-12-1967 History [...] often do you att end christianity or protestant services? Patient refused [facility] Do you [...] Comment (Audit-C) : Negative [facility] Start: 03-21-1946 Sex Assigned At Not on file [facility] Start: 04-27-2013 End: 05-22-2024 Tobacco smoking status NHIS Never smoked tobacco (finding) [facility] Start: 05-22-2024 Tobacco use and exposure Smokeless tobacco non-user [facility] Start: 05-22-2024 End: 04-24-2025 Alcoholic beverage intake Current drinker of alcohol (finding) [facility] History of tobacco use Passive smoker [facility] Start: 11-07-2023 Alcohol Comment OCCASSIONAL [facility] Start: 09-25-2024 End: 10-29-2024 Sex Female (finding) [facility] Are you now , , , , never or living with a partner? Living with partner [facility] Do you feel stress - tense, restless, nervous, or anxious, or unable to sleep at night because your mind is troubled all the time - these days [OSQ] To some extent [facility] (I/We) worried wheth er (my/our) food would run out before (I/we) got money to buy more. Never true [facility] How often do you nee d to have someone help you when you read instructions, pamphlets, or other written material from your doctor or pharmacy [SILS] Never [facility] Work Phone: Goals Date Patient Goal Desired Activity /State Functional Status Date Assessment Result Facility 04-24-2025 Patient Health [facility] ionnaire 2 item (PHQ-2) [Reported] [facility] 04-18-2025 Patient Health Quest ionnaire 2 item (PHQ-2) [Reported] [facility] 02-18-2025 Patient Health Quest ionnaire 2 item (PHQ-2) [Reported] [facility] 03-02-2024 Functional Status N/A [facility] General Surgery [facility] Clinical Notes 08-26-2021 to 04-24-2025 Shannon Russo NP - 04/24/2025 9:30 AM DANIELLE Guerra [...] by mouth every 12 (twelve) hours HYDROcodone-acetaminophen (Burney) 5-325 MG tablet Take 1 tablet by [...] follow-ups on file. documented in this encounter [facility] 04-18-2025 History of Present illness Narrative Subjective Patient ID: Breann Starks is a 79 y.o. female who presents for COPD. Breann is present today for follow up COPD. She has a nebulizer at home but is not working properly and it is over 20 years old. She would like it sent to [facility] in [place] ([address]). She uses it as needed. She does [...] by mouth every 12 (twelve) hours HYDROcodone-acetaminophen (Burney) 5-325 MG tablet Take 1 tablet by [...] broken. Will fax order for nebulizer to [facility], . It is medically necessary for patient [...] the nebulizer, patient is at risk for DIRECTOR LOAN Exacerbation that may require hospitalization, as well as hypoxia which can lead to falls. Falls can cause potentially fatal injuries. Refill provided on the nebulizer solution also at today's visit. Follow up for Appointment As Scheduled. documented in this encounter [facility] 02-20-2025 Note Subjective Patient ID: Breann Starks [...] Repeat labs today Follow-up in 3 months [facility] 02-18-2025 History of Present illness Narrative Images [...] by mouth every 12 (twelve) hours HYDROcodone-acetaminophen (Burney) 5-325 MG tablet Take 1 tablet by [...] months (around 05/21/2025). documented in this encounter [facility] 01-17-2025 Note Subjective Patient ID: Breann Starks [...] - C-reactive protein; (more content not included)... [facility] 01-01-2025 Note Orthopaedic Surgery Subjective Follow-up [...] be an additional personal documentation from me. [facility] 12-24-2024 Note [place] Cardiology - [facility] Subjective Breann Starks is a 79 [...] furosemide (Lasix) 4 (more content not included)... [facility] 12-17-2024 History of Present illness Narrative [...] by mouth every 12 (twelve) hours HYDROcodone-acetaminophen (Burney) 5-325 MG tablet Take 1 tablet by [...] shoulder joint (CMS/HCC) - Seeing Dr Holt ([facility] [place]). On 1 month ATB course. Abnormal mammogram - Results discussed. She has left axillary LAD from above. Enlarged lymph nodes in armpit - This office visit was spent in consultation regarding the patient's current medical problems, differential diagnoses, testing/imaging results, and treatment options. Greater than 25 minutes was spent in [id number] consultation and coordination of care. No follow-ups on file. documented in this encounter [facility] 11-27-2024 Note Orthopedic Surgery Subjective Chief [...] her about suppression versus doing something definitive. [facility] 11-13-2024 Note Patient ID: Breann Starks [...] to verify the correct patient, procedure, equipment, student support counselor and site/side marked as required. [facility] 11-13-2024 Note Orthopedic Surgery Subjective Pain [...] Diagnosis Date Abnormal ECG Arrhythmia Atrial fibrillation ([facility]) Coronary artery disease Hypertension Objective General: Body mass index is 44.43 kg/m???. No acute distress, comfortable Left UE/Hand: Inspection- swelling and erythema overlying the left shoulder and upper arm Tender to palpation surrounding shoulder, otherwise non-tender ROM: Limited shoulder range of motion patient with flexion to 40 degrees, abduction to 20 full painless motion to all digits and the wrist Strength: disposal man 5/5, thumb 5/5, interossei 5/5. wrist extension/flexion [...] be an additional personal documentation from me. [facility] 11-10-2024 Telephone encounter Note I think it is the op note left shoulder on 01/07/2022 ( Dr. Amin- [facility]) thanks [facility] Work Phone: 11-10-2024 Miscellaneous Notes I think it is the op note left shoulder on 01/07/2022 ( Dr. Amin- [facility]) thanks Patient called in about seeing and the referral to . Patient needs us to send the op report for LT shoulder to because 's office cannot.. 's fax number is [phone]. Is this ok? documented in this encounter [facility] 11-09-2024 Telephone encounter Note Patient called in about seeing and the referral to . Patient needs us to send the op report for LT shoulder to because 's office cannot.. 's fax number is [phone]. Is this ok? [facility] 11-07-2024 History of Present illness Narrative Images from the original note were not included. HISTORY OF PRESENT ILLNESS: EST PT Breann Starks is an 78 y.o. @ female. (EST PT) - RECHECK (L) SHOULDER ; S/P LABS (CBC W/ DIFF, CRP, SED RATE) S/P (L) REVERSE TSR 12/29/21 - DR AMIN XRAYS, (L) SHOULDER & C-SPINE 04/16/24 IN EPIC ATTEMPTED MRI @ [facility] - UNABLE TO OBTAIN IMAGES D/T PACEMAKER PLACEMENT BONE SCAN 05/02/24 @ [facility] LABS 10/24/24 @ [facility] (CBC W/DIFF, CRP, SED RATE) LABS 05/09/24 @ [facility] (CBC / SED RATE / CRP) NO MDP / PREDNISONE NO RECENT PT PAIN MGMT @[facility] (LBP) (NECK PAIN 08/2024) NO CHANGE [...] HER (L) ARM TO USE A BACK SUMATRA OPENER ON HER BACK ALLERGIES: Allergies Allergen Reactions [...] (TAMBOCOR) 100 mg, Every 12 hours HYDROcodone-acetaminophen (Burney) 5-325 MG tablet 1 tablet, 3 times [...] Elbow: none Palpation additional comments: Neg Spurlings Waste 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 Wrist flex/ ext. Symmetric 5/5 [...] We have recommended a second opinion at [facility] and set her up with a [...] requiring urgent evaluation. documented in this encounter [facility] 10-24-2024 History of Present illness Narrative Images from the original note were not included. HISTORY OF PRESENT ILLNESS: EST PT Breann Starks is an 78 y.o. @ female. (EST PT) (DR. HANSEN REFERRAL) - RECHECK (L) SHOULDER S/P (L) REVERSE TSR 12/29/21 - DR AMIN XRAYS, (L) SHOULDER & C-SPINE 04/16/24 IN [facility] ATTEMPTED MRI @ [facility] - UNABLE TO OBTAIN IMAGES D/T PACEMAKER PLACEMENT BONE SCAN 05/02/24 @ [facility] LABS 05/09/24 @ [facility] (CBC / SED RATE / CRP) NO MDP / PREDNISONE NO RECENT PT PAIN MGMT @[facility] (LBP) (NECK PAIN 08/2024) CONTINUES TO [...] HER (L) ARM TO USE A BACK SUMATRA OPENER ON HER BACK ALLERGIES: Allergies Allergen Reactions [...] (TAMBOCOR) 100 mg, Every 12 hours HYDROcodone-acetaminophen (Bur[place]) 5-325 MG tablet 1 tablet, 3 times [...] Elbow: none Palpation additional comments: Neg Spurlings Waste 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 Wrist flex/ ext. Symmetric 5/5 [...] due to internal joint prosthesis, initial encounter ([facility]) T84.50XA CBC and differential C-reactive protein [...] requiring urgent evaluation. documented in this encounter [facility] 10-17-2024 History of Present illness Narrative [...] by mouth every 12 (twelve) hours HYDROcodone-acetaminophen (Bur[place]) 5-325 MG tablet Take 1 tablet by [...] Do you have a medical power of prosecuting attorney?: No Objective : BP 138/76 Pulse [...] a living will and durable power of prosecuting attorney for healthcare. We discussed telling kitchen [...] October 17, 2024 documented in this encounter [facility] 10-16-2024 Radiology Diagnostic study note [facility] Main [place] [id number] Ultrasound Report Signed Patient: Breann Starks MR#: [id number] : 1945 Acct:[id number] Age/Sex: 78 / F ADM Date: 5 Loc: [facility] Room: Type: [facility] Attending Dr: Dmitriy Duque DO Ordering Provider: Dmitriy Duque DO Date of Service: 10/16/24 US/US axilla: R92.8 ([id number]) MM/MM diagnostic mammo BI w/CAD: ENLARGED LT [...] Benton Jr., D.O.10/16/2024 2:20 PM Dictation Location: [facility] Tech: Ghazal Wilson; Kadi Minot Transcribed By: STAR 10/16/24 1420 Dictated By: Francisco J Benton Jr, DO 10/16/24 1343 Signed By: 10/16/24 1420 [facility] 10-04-2024 History of Present illness Narrative Images from the original note were not included. Breann Starks 1945 Breann Starks is a 78 y.o. female presents with chief complaint of Consult (Lt axillary lymphadenopathy) HPI: HPI patient was vigorously scratching her back with a back polyethylene combiner on February 15 and the next day [...] furosemide (LASIX) 40 mg, Oral, Daily HYDROcodone-acetaminophen ([place]ney) 5-325 MG tablet 1 tablet, 3 times [...] Medical History: Diagnosis Date Anemia Atrial fibrillation ([facility]/HCC) Centrilobular emphysema ([facility]) COPD (chronic obstructive pulmonary disease) ([facility]) COPD exacerbation ([facility]) 10/17/2023 Coronary artery disease ([facility]) Diastolic dysfunction Essential hypertension ([facility]) History of tobacco abuse Nonalcoholic steatohepatitis (LOJA) Obstructive sleep apnea Osteoarthritis Paroxysmal atrial fibrillation ([facility]) Peptic ulcer disease Secondary pulmonary arterial hypertension ([facility]) Sick sinus syndrome ([facility]) Spinal stenosis, lumbar region with neurogenic claudication SVT (supraventricular tachycardia) ([facility]) URTI (acute upper respiratory infection) Vertigo Vitamin [...] Former Physical Exam Exam conducted with a ice skating coach present. Constitutional: Appearance: Normal appearance. HENT: Head: [...] doctors on that documented in this encounter [facility] 09-24-2024 Note [place] Cardiology - [facility] Subjective Breann Starks is [...] at bedtime. (Patient (more content not included)... [facility] 09-19-2024 History of Present illness Narrative [...] Reported on 09/18/2024) 90 tablet 0 HYDROcodone-acetaminophen (Burney) 5-325 MG tablet Take 1 tablet by [...] Medical History: Diagnosis Date Anemia Atrial fibrillation ([facility]/HCC) Centrilobular emphysema ([facility]/HCC) COPD (chronic obstructive pulmonary disease) ([facility]) COPD exacerbation ([facility]/H[facility]) 10/17/2023 Coronary artery disease ([facility]/HCC) Diastolic dysfunction Essential hypertension ([facility]/H[facility]) History of tobacco abuse Nonalcoholic steatohepatitis (LOJA) Obstructive sleep apnea Osteoarthritis Paroxysmal atrial fibrillation ([facility]) Peptic ulcer disease Secondary pulmonary arterial hypertension ([facility]) Sick sinus syndrome ([facility]) Spinal stenosis, lumbar region with neurogenic claudication SVT (supraventricular tachycardia) ([facility]) URTI (acute upper respiratory infection) Vertigo Vitamin [...] on file. = documented in this encounter [facility] 09-19-2024 Instructions Luisana Leal NP - 09/19/2024 3:00 PM EST Macrobid ordered. Urine sent for culture. documented in this encounter [facility] 09-18-2024 History of Present illness Narrative Images from the original note were not included. Chief Complaint: neck pain and paresthesia Subjective Breannandrei Starks, 78 y.o., female Patient presents today [...] Medical History: Diagnosis Date Anemia Atrial fibrillation ([facility]) Centrilobular emphysema ([facility]) COPD (chronic obstructive pulmonary disease) ([facility]) COPD exacerbation ([facility]) 10/17/2023 Coronary artery disease ([facility]) Diastolic dysfunction Essential hypertension ([facility]) History of tobacco abuse Nonalcoholic steatohepatitis (LOJA) Obstructive sleep apnea Osteoarthritis Paroxysmal atrial fibrillation ([facility]) Peptic ulcer disease Secondary pulmonary arterial hypertension ([facility]) Sick sinus syndrome ([facility]) Spinal stenosis, lumbar region with neurogenic claudication SVT (supraventricular tachycardia) ([facility]) URTI (acute upper respiratory infection) Vertigo Vitamin [...] , wrist extensors , wrist flexor , disposal man strength 5/5. Left upper extremity strength is [...] reflex 2+ . Neal's sign negative. Coordination: Oxjotd-of-pkmy testing and rapid alternating movements are normal [...] and return instructions documented in this encounter [facility] 08-24-2024 Evaluation note Diagnosis Onset Date Resolution Iron deficiency anemia acute De cem2023 12:55pm [facility] Work Phone: 1(839) 443-793012-13-2024 Evaluation note* Diagnosis Onset Date Resolution Status Admit Date Iron deficiency anemia acute De cember 2023 12:55pm Axillary lymphadenopathy acute September 25, 2024 11:08am Iron deficiency anemia acute [facility] 2024 11:08am [facility] Work Phone: [phone]) 334-602012-05-2024 History of Present illness Narrative* Renny Hansen [...] MOUTH EVERY DAY 90 tablet 0 HYDROcodone-acetaminophen (Burney) 5-325 MG tablet Take 1 tablet by [...] for As Previously Scheduled. documented in this encounterSaint [facility] [id number] History of Present illness Narrative* Renny Hansen [...] MOUTH EVERY DAY 90 tablet 0 HYDROcodone-acetaminophen (Burney) 5-325 MG tablet Take 1 tablet by [...] Greater than 25 minutes was spent in jzts-ma-ultu consultation and coordination of care. Persistent atrial fibrillation (HCC) (CMS/HCC) Nausea - FL upper GI double contrast w KUB; Future Follow up in about 2 weeks (around 08/16/2024) for Test/Lab Review. documented in this [facility]11-13-2024 Telephone encounter Note* Telephone Encounter - DANIELLE Florence - 07/25/2024 1:07 PM EST My chart message. [facility] [id number] Miscellaneous Notes* Telephone Encounter - DANIELLE Florence [...] arm. Pt does see pain magment in [place]. Sees their office next week on the [...] MOUTH EVERY DAY 90 tablet 0 HYDROcodone-acetaminophen (Burney) 5-325 MG tablet Take 1 tablet by [...] Neck pain on left side Can continue Burney as needed for pain. Radicular pain in [...] hypertension (CMS/HCC) The patient is seeing a product manager medical device for this condition, treatment is deferred to that specialist. Correspondence from that specialist and any available testing were reviewed during today's visit. She will be having Cardiac Catheterization for further evaluation of the pulmonary hypertension. Other thrombophilia Will recheck with updated labs. Follow up in about 4 weeks (around 08/21/2024) for Next scheduled follow-up with Dr. Hansen. documented in this [facility]11-12-2024 Telephone encounter Note* Telephone Encounter - DANIELLE Florence - 07/24/2024 10:04 AM EST Will discuss with pt at today's OV [facility] [id number] Miscellaneous Notes* Telephone Encounter - DANIELLE Florence - 07/24/2024 10:04 AM EST Will discuss with pt at today's OV * Telephone Encounter - Renny Hansen MD - 07/05/2024 2:55 PM EDT Call after mammogram with plan. See last OV. documented in this [facility]11-06-2024 NoteUT Cardiology - [facility] Subjective Breann Starks is a 78 [...] rhythm, normal EKG Ech (more content not included)...[facility]10-24-2024 Telephone encounter Note* Telephone Encounter - Renny Hansen MD - 07/05/2024 2:55 PM EDT Call after mammogram with plan. See last OV. [facility] [id number] History of Present illness Narrative* Renny Hansen MD - 07/05/2024 9:00 AM EDT Images from the original note were not included. HPI Establish Care Additional comments: Previous pcp Dr Cira Saldivar cardiology-dr juan Holguin-- orthopedic Last edited by Carlene Yan LPN on 07/05/2024 8:59 AM. Subjective Patient ID: Breann Starks is a 78 y.o. female who presents for Establish Care (Previous pcp Dr Denis/Yariel cardiology-dr martinez/Dr. Holguin-- orthopedic) and Hypertension. Hypertension Patient is here [...] MOUTH EVERY DAY 90 tablet 0 HYDROcodone-acetaminophen (Burney) 5-325 MG tablet Take 1 tablet by [...] Greater than 45 minutes was spent in atzf-id-gdsq consultation and coordination of care. Follow up in about 4 months (around 11/05/2024) for Call after mammogram. documented in this [place] [id number] History of Present illness Narrative* Monster Calvillo [...] of suspected CHF exacerbation. documented in this encounterSaint John's Saint [facility] [id number] NoteHNO ID: [id number] Author: BOO BUCHANAN PA-C Service: ? Author Type: Physician Building Tech Type: Progress Notes Filed: 05/22/2024 13:53 [...] She was recommended for second opinion at [facility]. She also had a CRP and [...] date: COPD (chronic obstructive pulmonary disease) ([facility]) SOCIAL HISTORY: Tobacco Use: Never EXAMINATION: [...] the hardware. Bone scan performed at [facility]' to be uploaded to the system. Boo Buchanan (more content not included)...[facility] 05-22-2024 History of Present illness Narrative* [...] She was recommended for second opinion at [facility]. She also had a CRP and [...] date: COPD (chronic obstructive pulmonary disease) ([facility]) SOCIAL HISTORY: Tobacco Use: Never EXAMINATION: [...] the hardware. Bone scan performed at [facility]' to be uploaded to the system. Boo Buchanan PA-C documented in [facility] NoteHNO ID: [id number] Author: JYOTHI CRUZ RT(R) Service: ? Author [...] PATIENT PRESENTS WITH AN IMPLANTABLE OR ATTACHED LPN INSTRUCTOR: No RADIOLOGY DEPARTMENT: General X-ray: Exam(s) Completed: Upper Extremity X-Ray(s): Shoulder, AP / TRUE AP / AXILLARY / SUPRA OUTLET left PERIPHERAL IV DATA: Not applicable SIGNED BY: RT Chaparrita(R) May 22, 2024 1:25 [facility]09-10-2024 History of Present illness Narrative* Jyothi Cruz [...] PATIENT PRESENTS WITH AN IMPLANTABLE OR ATTACHED LPN INSTRUCTOR: No RADIOLOGY DEPARTMENT: General X-ray: Exam(s) Completed: Upper Extremity X- Ray(s): Shoulder, AP / TRUE AP / AXILLARY / SUPRA OUTLET left PERIPHERAL IV DATA: Not applicable SIGNED BY: RT Chaparrita(R) May 22, 2024 1:25 PM documented in [facility]St[facility] History of Present illness Narrative* Jr. Sakina Cardenas, DO - 05/09/2024 10:00 AM EDT Images from the original note were not included. HISTORY OF PRESENT ILLNESS: EST PT Breann Starks is an 78 y.o. @ female. (EST PT ; LAST APPT W/ QUINN) RECHECK (L) SHOULDER PAIN ; HERE FOR BONE SCAN RESULTS 05/02/24 @ [facility] (VERBAL GIVEN PER QUINN - REFERRAL SENT TO DR AMIN) & LABS 05/09/24 @ [facility] (CBC / SED RATE / CRP) S/P (L) REVERSE TSR 12/29/21 - DR AMIN XRAYS, (L) SHOULDER & C-SPINE 04/16/24 IN EPIC ATTEMPTED MRI @ [facility] - UNABLE TO OBTAIN IMAGES D/T PACEMAKER PLACEMENT BONE SCAN 05/02/24 @ [facility] LABS 05/09/24 @ [facility] (CBC / SED RATE / CRP) [...] USING HER(L) ARM TO USE A BACK SUMATRA OPENER ON HER BACK ALLERGIES: Allergies Allergen Reactions Nsaids Other Reaction(s): HEART ISSUES Digoxin Rash Wound Dressing Adhesive Rash HOME MEDICATIONS: Current Outpatient Medications Medication Instructions apixaban (ELIQUIS) 5 mg, Oral, 2 times daily ferrous sulfate 325 mg, Oral, Daily with breakfast, Do not crush, chew, or split. 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 Wrist flex/ ext. Symmetric 5/5 [...] basis. Sakina Cardenas D.O. documented in this encounterSaint John's Saint [facility] [id number] NoteChief Complaint consultation for anemia HPI Staff 78 year old female presents on consultation from [facility] [place] [facility] for anemia. Labs completed yesterday with [...] PSVT, spinal stenosis, cervical radiculopathy; referred from [facility] ED for anemia, low iron, and positive fecal occult blood; patient notice fatigue several weeks ago, seen by Dr Denis and jrery shaw blood work done, sent to ED [...] PSVT (paroxysmal supraventricular t (more content not included)...[facility]:Result Comment: Electronically Signed By: CATHERINE CUBA, Jair Quinonez\Date and Time Signed: 03/02/24 13:01 [id number] Evaluation note* Encounter Date Diagnosis Assessment Notes Treatment Notes Treatment Clinical Notes Sep, LOJA (nonalcoholic steatohepatitis) (ICD-10 - K75.81) OBTAIN FIBROSURE RESULTS FROM [facility] RE[facility] ON RESULTS PT ENCOURAGED WEIGHT LOSS RTO ONE YEAR WITH LABS ANNUALLY Sep, Unspecified cirrhosis of liver (ICD-10 - K74.60) [facility] Other 12-15-2021 Evaluation note* Encounter Date Diagnosis Assessment Notes Treatment Notes Treatment Clinical Notes Aug, Nonalcoholic steatohepatitis (LOJA) (ICD-10 - K75.81) RTO 6-8 WEEKS Aug, Unspecified cirrhosi s of liver (ICD-10 - K74.60) Aug, Morbid obesity (ICD- 10 - E66.01) [facility] Other Evaluation + Plan note No data available for this section [facility] [place] Evaluation noteNo assessment information available [facility] Work Phone: Evaluation note* Diagnosis 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 Diagnosis Left shoulder pain, unspecified chronicity [facility]* Diagnosis Acute on chronic diastolic (congestive) heart failure (CMS/HCC) documented in this encounter [facility] HealthcareEvaluation note* Diagnosis Essential hypertension [...] syndrome, unspecified type documented in this encounter [facility] HealthcareEvaluation note* Diagnosis Essential hypertension (CMS/HCC)- [...] Unspecified essential hypertension documented in this encounter [facility] HealthcareEvaluation note* Diagnosis Essential hypertension [...] Other thrombophilia (CMS/HCC) documented in this encounter [facility] HealthcareEvaluation note* Diagnosis Essential hypertension [...] blood loss (chronic) documented in this encounter [facility] HealthcareEvaluation note* Diagnosis Essential hypertension [...] Nausea Nausea alone documented in this encounter [facility] HealthcareEvaluation note* Diagnosis Essential hypertension [...] (CMS/HCC) Atrial fibrillation documented in this encounter [facility] HealthcareEvaluation note* Diagnosis Essential hypertension [...] tissues of limb documented in this encounter [facility] HealthcareEvaluation note* Diagnosis Essential hypertension (CMS/HCC)- [...] unspecified single disease documented in this encounter [facility] Healthcare[facility] note* Diagnosis Essential hypertension (CMS/HCC)- [...] of lymph nodes documented in this encounter [facility] HealthcareEvaluation note* Diagnosis Essential hypertension [...] left upper extremity documented in this encounter [facility] HealthcareEvaluation note* Diagnosis Essential hypertension [...] initial encounter (CMS/HCC) documented in this encounter [facility] HealthcareEvaluation note* Diagnosis Essential hypertension [...] left shoulder joint documented in this encounter [facility] HealthcareEvaluation note* Diagnosis Essential hypertension [...] of lymph nodes documented in this encounter [facility] HealthcareEvaluation note* Diagnosis Essential hypertension [...] legs syndrome (RLS) documented in this encounter [facility] HealthcareEvaluation note* Diagnosis Essential hypertension- Primary Unspecified [...] (BMI) of 45.0 to 49.9 in adult ([facility]) Acute on chronic diastolic (congestive) heart failure [...] type (HCC)- Primary documented in this encounter [facility] HealthcareEvaluation note* Diagnosis Essential hypertension- Primary Unspecified [...] (BMI) of 45.0 to 49.9 in adult ([facility]) Acute on chronic diastolic (congestive) heart failure [...] Surgical History pacemaker Hospitalization History see above [facility] Other Hospital Discharge instructions No data available for this section [facility] [place] [facility] Discharge instructionsAmbulatory Orders* Referral to General Surgery Location: None [facility] Work Phone: Progress note No data available for this section [facility] [place] Reason for referral (narrative)* Diagnostic Procedure Only (Routine) - Closed Specialty Diagnoses / Procedures Referred By Millie egan Referred To Contact XR IMAGING Diagnoses Left shoulder pain, unspecified chronicity Procedures XR SHOULDER ORTHO 4V AP/TRUE AP/LAT/OUTLET LEFT RADEX SHOULDER COMPLETE MINIMUM 2 VIEWS Boo Buchanan PA-C [address] [place] [address] [place] [address] Referral ID Status Reason Start Date Expiration Date V isits Requested Visits Authorized [id number] Closed Auto-Generate d Referral 05/08/2024 06/07/2025 1 1 T [facility] for visit Narrative* Diagnostic Procedure Only (Routine) - Closed Specialty Diagnoses / Procedures Referred By Millie egan Referred To Contact XR IMAGING Diagnoses Left shoulder pain, unspecified chronicity Procedures XR SHOULDER ORTHO 4V AP/TRUE AP/LAT/OUTLET LEFT RADEX SHOULDER COMPLETE MINIMUM 2 VIEWS Boo Buchanan PA-C [address] [facility] [place] [address] [place] [address] Referral ID Status Reason Start Date Expiration Date V isits Requested Visits Authorized [id number] Closed Auto-Generate d Referral 05/08/2024 06/07/2025 1 1 [facility] for visit Narrative* Consultation (Routine) - Closed Specialty Diagnoses / Procedures Referred By Contac t Referred To Contact Neurology Diagnoses Neck pain on left side Procedures AK OFFICE/OUTPATIENT NEW HIGH MDM 60 MINUTES Renny Hansen MD [address] [place] [address] Phone: tel: fax: Paula Lord MD [address] [place] [address] Phone: tel: fax: Referral ID Status Reason Start Date Expiration Date V isits Requested Visits Authorized [id number] Closed Specialty Services Required 09/13/2024 03/12/2025 1 [...] August 24 12:55pm Axillary lymphadenopathy September 25, 025 11:08am Iron deficiency anemia September 25 [...] Chronic left shoulder pain Monster Calvillo, ELBERT [address] [place] [phone] Referral ID Status Reason Start Date Expiration Date V isits Requested Visits Authorized [id number] Pending Review 05/16/2024 11/12/2024 1 1 Specialty Diagnoses / Procedures Referred By Millie egan Referred To Contact CT IMAGING Diagnoses 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) Procedures CT SHOULDER WO IVCON LEFT CT UPPER EXTREMITY W/O CONTRAST MATERIAL Boo Buchanan PA-C [address] [facility] [place] [address] [place] [address] Referral ID Status Reason Start Date Expiration Date Visits Requested Visits Authorized [id number] New Request Auto-Generat ed Referral 05/22/2024 06/21/2025 1 1 Specialty Diagnoses / Procedures Referred By Contac t Referred To Contact XR IMAGING Diagnoses Left shoulder pain, unspecified chronicity Procedures XR SHOULDER ORTHO 4V AP/TRUE AP/LAT/OUTLET LEFT RADEX SHOULDER COMPLETE MINIMUM 2 VIEWS Boo Buchanan PA-C [address] [facility] [place] [address] [place] [address] Referral ID Status Reason Start Date Expiration Date V isits Requested Visits Authorized [id number] Closed Auto-Generate d Referral 05/08/2024 06/07/2025 1 1 Additional Source Comments INFORMATION SOURCE (unrecogn ized section and content) DATE CREATED AUTHOR 10/23/2021 [facility] DATE CREATED AUTHOR AUTHOR'S ORGANIZ ATION 01/22/2022 [facility] DATE CREATED AUTHOR AUTHOR'S ORGANIZ ATION 02/18/2023 [facility] DATE CREATED AUTHOR AUTHOR'S ORGANIZ ATION 03/11/2024 [facility] DATE CREATED AUTHOR AUTHOR'S ORGANIZ ATION 05/24/2024 [facility] DATE CREATED AUTHOR AUTHOR'S ORGANIZ ATION 02/18/2025 [facility] DATE CREATED AUTHOR AUTHOR'S ORGANIZ ATION 02/25/2025 [facility] DATE CREATED AUTHOR AUTHOR'S ORGANIZ ATION 04/25/2025 [facility] d[facility] Special[facility] DATE CREATED AUTHOR AUTHOR'S ORGANIZ ATION 05/02/2025 [facility] ys[facility] REASON FOR VISIT (unrecogniz ed section and content) Reason Comments Pain Specialty Diagnoses / Procedures Referred By Contac t Referred To Contact Orthopaedic Surgery Diagnoses Injury of left shoulder and upper arm, sequela Left shoulder pain, unspecified chronicity Renny Hansen MD [address] [facility] [address] [place] [address] Phone: tel: fax: Jr. Sakina Cardenas, DO [address] [place] [address] Phone: tel: fax: Referral ID Status Reason Start Date Expiration Date V isits Requested Visits Authorized [id number] Closed Specialty Services Required 10/17/2024 04/15/2025 1 [...] Pedro Pablo Cruz PA [address] [facility] [address] [place] [address] González Alvarado MD [address] [place] [address] Referral ID Status Reason Start Date Expiration Date V isits Requested Visits Authorized [id number] Authorized 05/08/2024 09/11/2024 99 99 Reason Comments [...] October 11, 2023 End: October 11, 2023 Television [employer] An[employer] Relationship Specialty Start Date End Date Shaikh [...] May 02, 2024 End: May 02, 2024 Television News Anchor Relationship Specialty Start Date End Date Luisana Johnson MD [address] [place], [facility] PCP - General 01/05/06 Pedro Pablo Cruz MD [address] [place] [address] Referring Infectious Diseases 05/07/24 Television News Anchor Relationship Specialty Start Date End Date Luisana Johnson MD [address] [place] [id number] PCP - General 01/05/06 Pedro Pablo Cruz MD [address] [place] [address] Referring Infectious Diseases 05/07/24 Television News Anchor Relationship Specialty Start Date End Date Luisana Johnson MD [address] [place] [address] PCP - General 01/05/06 Pedro Pablo Cruz MD [address] [facility] [address] Referring Infectious Diseases 05/07/24 Television News Anchor Relationship Specialty Start Date End Date Wesley Long MD [address] [place] [address] PCP - General Family Medicine 05/17/24 Monster Calvillo NP [address] [place] [address] Nurse Practitioner Family Medicine 05/17/24 [employer] An[employer] Relationship Specialty Start Date End Date Wesley Long MD [address] [place] [address] PCP - General Family Medicine 05/17/24 Monster Calvillo NP [address] [place] [address] Nurse Practitioner Family Medicine 05/17/24 [employer] Anchor Relationship Specialty Start Date End Date Wesley Long MD [address] [place] [address] PCP - General Family Medicine 05/17/24 Monster Calvillo NP [address] [place] [address] Nurse Practitioner Family Medicine 05/17/24 [employer] An[employer] Relationship Specialty Start Date End Date Wesley Long MD [address] [place] [address] PCP - General Family Medicine 05/17/24 Monster Calvillo NP [address] [place] [address] Nurse Practitioner Family Medicine 05/17/24 [employer] Anchor Relationship Specialty Start Date End Date Wesley Long MD [address] [place] [address] PCP - General Family Medicine 05/17/24 Monster Calvillo NP [address] [place] [address] Nurse Practitioner Family Medicine 05/17/24 [employer] An[employer] Relationship Specialty Start Date End Date Wesley Long MD [address] [place] [address] PCP - General Family Medicine 05/17/24 Monster Calvillo NP [address] [place] [address] Nurse Practitioner Family Medicine 05/17/24 Television [employer] Anchor Relationship Specialty Start Date End Date Wesley Long MD [address] [place] [address] PCP - General Family Medicine 05/17/24 Monster Calvillo NP [address] [place] [address] Nurse Practitioner Family Medicine 05/17/24 [employer] An[employer] Relationship Specialty Start Date End Date Wesley Long MD [address] [place] [address] PCP - General Family Medicine 05/17/24 Monster Calvillo NP [address] [place] [address] Nurse Practitioner Family Medicine 05/17/24 [employer] An[employer] Relationship Specialty Start Date End Date Wesley Long MD [address] [place] [address] PCP - General Family Medicine 05/17/24 Monster Calvillo NP [address] [place] [address] Nurse Practitioner Family Medicine 05/17/24 [employer] An[employer] Relationship Specialty Start Date End Date Wesley Long MD [address] [place] [address] PCP - General Family Medicine 05/17/24 Monster Calvillo NP [address] [place] [address] Nurse Practitioner Family Medicine 05/17/24 [employer] An[employer] Relationship Specialty Start Date End Date Wesley Long MD [address] [place] [address] PCP - General Family Medicine 05/17/24 Monster Calvillo NP [address] [place] [address] Nurse Practitioner Family Medicine 05/17/24 [employer] An[employer] Relationship Specialty Start Date End Date Wesley Long MD [address] [place] [address] PCP - General Family Medicine 05/17/24 Monster Calvillo NP [address] [place] [address] Nurse Practitioner Family Medicine 05/17/24 [employer] An[employer] Relationship Specialty Start Date End Date Wesley Long MD [address] [place] [address] PCP - General Family Medicine 05/17/24 Monster Calvillo NP [address] [place] [address] Nurse Practitioner Family Medicine 05/17/24 Television [employer] An[employer] Relationship Specialty Start Date End Date Wesley Long MD [address] [place] [address] PCP - General Family Medicine 05/17/24 Monster Calvillo NP [address] [place] [id number] Nurse Practitioner Family Medicine 05/17/24 Television News An[employer] Relationship Specialty Start Date End Date Shaikh Denis MD [address] [place] [phone] PCP - General Internal Medicine 10/17/23 Television News Anchor Relationship Specialty Start Date End Date Shaikh Denis MD [address] [place] [phone] PCP - General Internal Medicine 10/17/23 Television News Anchor Relationship Specialty Start Date End Date Shaikh Denis MD [address] [place] [address] PCP - General Internal Medicine 10/17/23 Television News Anchor Relationship Specialty Start Date End Date Wesley Long MD [address] [place] [phone] PCP - General Family Medicine 05/17/24 Monster Calvillo NP [address] [place] [phone] Nurse Practitioner Family Medicine 05/17/24 Television News An[employer] Relationship Specialty Start Date End Date Wesley Long MD [address] [place] [phone] PCP - General Family Medicine 05/17/24 Monster Calvillo NP [address] [place] [address] Nurse Practitioner Family Medicine 05/17/24 Television News Anchor Relationship Specialty Start Date End Date Wesley Long MD [address] [place] [address] PCP - General Family Medicine 05/17/24 Monster Calvillo NP [address] [place] [address] Nurse Practitioner Family Medicine 05/17/24 Television News Anchor Relationship Specialty Start Date End Date Wesley Long MD [address] [place] [phone] PCP - General Family Medicine 05/17/24 Monster Calvillo NP [address] [place] [address] Nurse Practitioner Family Medicine 05/17/24 Television News Anchor Relationship Specialty Start Date End Date Wesley Long MD [address] [place] [phone] PCP - General Family Medicine 05/17/24 Monster Calvillo NP [address] [place] [address] Nurse Practitioner Family Medicine 05/17/24 Television News Anchor Relationship Specialty Start Date End Date Renny Hansen MD [address] [facility] [place] [address] PCP - General Internal Medicine 09/19/24 Team [...] September 25, 2024 End: September 25, 2024 Television News Anchor Relationship Specialty Start Date End Date Renny Hansen MD [address] [place] [address] PCP - General Internal Medicine 09/19/24 Television News Anchor Relationship Specialty Start Date End Date Renny Hansen MD [address] [place] [address] PCP - General Internal Medicine 09/19/24 Television News Anchor Relationship Specialty Start Date End Date Renny Hansen MD [address] [place] [address] PCP - General Internal Medicine 09/19/24 Television News Anchor Relationship Specialty Start Date End Date Renny Hansen MD [address] [place] [address] PCP - General Internal Medicine 09/19/24 Team [...] October 16, 2024 End: October 16, 2024 Television News Anchor Relationship Specialty Start Date End Date Renny Hansen MD [address] [facility] [address] [place] [address] PCP - General Internal Medicine 09/19/24 Television News Anchor Relationship Specialty Start Date End Date Renny Hansen MD [address] [facility] [address] [place] [address] PCP - General Internal Medicine 09/19/24 Team [...] End: October 29, 2024 Juan Monahan II, Attending Provider Active Start: October 29, 2024 End: October 29, 2024 Team Status: Active Member Role Status Dates Renny Hansen II MD Primary Care Provid er, Referring Provider Active Start: October 29, 2024 Thijus Toledo APRN Attending Provider Active Start: October [employer] Relationship Specialty Start Date End Date Renny Hansen MD [address] [facility] [address] [place] [address] PCP - General Internal Medicine 09/19/24 Renny Hansen MD [address] [facility] [address] [place] [address] PCP - Medical [place] 09/12/2409/11 Cindi Jenkins LSW [employer]er Family Medicine 11/06/24 Television News Anchor Relationship Specialty Start Date End Date Renny Hansen MD [address] [place] [address] PCP - General Internal Medicine 09/19/24 Renny Hansen MD [address] [place] [address] PCP - Medical [place] 09/12/2409/11 Cindi Jenkins, [facility] [employer] Assembler Family Medicine 11/06/24 Television News Anchor Relationship Specialty Start Date End Date Renny Hansen MD [address] [place] [address] PCP - General Internal Medicine 09/19/24 Renny Hansen MD [address] [place] [address] PCP - Medical [place] 09/12/2409/11 Cindi Jenkins, [facility] [employer] Assembler Family Medicine 11/06/24 Television News Anchor Relationship Specialty Start Date End Date Renny Hansen MD [address] [place] [address] PCP - General Internal Medicine 09/19/24 Renny Hansen MD [address] [place] [address] PCP - Medical [place] 09/12/2409/11 Lisa Ramirez LPN 12/05/24 Television News Anchor Relationship Specialty Start Date End Date Renny Hansen MD [address] [place] [address] PCP - General Internal Medicine 09/19/24 Renny Hansen MD [address] [place] [address] PCP - Medical [place] 09/12/2409/11 Lisa Ramirez LPN 12/05/24 Television News Anchor Relationship Specialty Start Date End Date Renny Hansen MD [address] [place] [address] PCP - General Internal Medicine 09/19/24 Renny Hansen MD [address] [place] [address] PCP - Medical [place] 09/12/2409/11 Lisa Ramirez LPN 12/05/24 Television News Anchor Relationship Specialty Start Date End Date Renny Hansen MD [address] [place] [address] PCP - General Internal Medicine 09/19/24 Renny Hansen MD [address] [place] [address] PCP - Medical [place] 09/12/2409/11 Lisa Ramirez LPN 12/05/24 Television News Anchor Relationship Specialty Start Date End Date Renny Hansen MD [address] [place] [address] PCP - General Internal Medicine 09/19/24 Renny Hansen MD [address] [place] [address] PCP - Medical [place] 09/12/2409/11 Lisa Ramirez LPN 12/05/24 Television News Anchor Relationship Specialty Start Date End Date Renny Hansen MD [address] [place] [address] PCP - General Internal Medicine 09/19/24 Renny Hansen MD [address] [place] [address] PCP - Medical [place] 09/12/2409/11 Lisa Ramirez LPN [address] [place] [address] 12/05/24 Television News Anchor Relationship Specialty Start Date End Date Renny Hansen MD [address] [place] [address] PCP - General Internal Medicine 09/19/24 Renny Hansen MD [address] [place] [address] PCP - Medical [place] 09/12/2409/11 Lisa Ramirez LPN [address] [place] [address] 12/05/24 Television News Anchor Relationship Specialty Start Date End Date Renny Hansen MD [address] [place] [address] PCP - General Internal Medicine 09/19/24 Renny Hansen MD [address] [place] [address] PCP - Medical [place] 09/12/2409/11 Lisa Ramirez LPN [address] [place] [address] 12/05/24 Television News Anchor Relationship Specialty Start Date End Date Renny Hansen MD [address] [place] [address] PCP - General Internal Medicine 09/19/24 Renny Hansen MD [address] [facility] [address] [place] [address] PCP - Medical [facility] 09/12/2409/11 Lisa Ramirez LPN [address] [facility] [address] [place] [address] 12/05/24 Television News Anchor Relationship Specialty Start Date End Date Renny Hansen MD [address] [facility] [address] [place] [address] PCP - General Internal Medicine 09/19/24 Renny Hansen MD [address] [facility] [address] [place] [address] PCP - Medical [facility] 09/12/2409/11 Lisa Ramirez LPN [address] [facility] [address] [place] [address] 12/05/24 Goals (unrecognized section and content) Goals may be documented in a n alternate section Source Comments (unrecognize d section and content) In the event this informatio n is protected by the Federal Confidentiality of Alcohol and Drug Abuse Patient Records regulations: The Federal rules restrict any use of the information to criminally investigate or prosecute any alcohol or drug abuse patient.[facility] the event this information is protected by the Federal Confidentiality of Alcohol and Drug Abuse Patient Records regulations: The Federal rules restrict any use of the information to criminally investigate or prosecute any alcohol or drug abuse patient.[facility] the event this information is protected by the Federal Confidentiality of Alcohol and Drug Abuse Patient Records regulations: The Federal rules restrict any use of the information to criminally investigate or prosecute any alcohol or drug abuse patient.[facility] FOR RECORDS PERTAINING TO PATIENTS WHO [...] BE BASED ON THE PRIMARY CLINICAL RECORDS. [facility] [employer] [facility]. provides no warranty or guarantee of the accuracy or completeness of information in this document.
--- NOTE | 2025-05-02 13:07 | PM.CN ---
Consult Note: HPI Data of Consult Patient: known to practice within the last 3 years Requesting Physician: Claire Clement NP Primary Care Provider: FAVIAN LUNA Consult Narrative Reason for consult: f/u Narrative: Breann Starks a pleasant 79 year old female with chronic low back pain presents for evaluation. Pt has chronic pain secondary to lumbar ddd, lumbar stenosis, lumbar spondylosis, and sacroiliac joint pain. She has failed > 6 weeks of PT and provider guided HEP, heat, ice, tylenol, and cannot take NSAIDs. pain today 6/10 increasing to 10/10. since last visit underwent bilateral L5-S1 TFESI with >50% improvement in lumbar stenosis with NC. noting increased right SIJ pain. continues to note >50% improvement from left SIJ injection. cc:: CC: Claire Clement NP Review of Systems ROS Musculoskeletal Reports: back pain and joint pain PFSH [facility] Medical History (Updated 01/27/25 @ 10:54 by Holley Johnson MD) Arthritis ?M19.90 - Unspecified osteoarthritis, unspecified site (ICD-10) Chronic obstructive pulmonary disease ?J44.9 - Chronic obstructive pulmonary disease, unspecified (ICD-10) Peptic ulcer ?K27.9 - Peptic ulcer, site unspecified, unspecified as acute or chronic, without hemorrhage or perforation (ICD-10) Dyspnea on exertion ?R06.09 - Other forms of dyspnea (ICD-10) Anemia ?D64.9 - Anemia, unspecified (ICD-10) Hypertension ?I10 - Essential (primary) hypertension (ICD-10) Extremity edema ?R60.0 - Localized edema (ICD-10) Congestive heart failure ?I50.9 - Heart failure, unspecified (ICD-10) Atrial fibrillation ?I48.91 - Unspecified atrial fibrillation (ICD-10) Shoulder pain ?M25.519 - Pain in unspecified shoulder (ICD-10) Fatty liver ?K76.0 - Fatty (change of) liver, not elsewhere classified (ICD-10) History of shingles ?Z86.19 - Personal history of other infectious and parasitic diseases (ICD-10) Osteoarthritis ?M19.90 - Unspecified osteoarthritis, unspecified site (ICD-10) Pacemaker ?Z95.0 - Presence of cardiac pacemaker (ICD-10) Hiatal hernia ?K44.9 - Diaphragmatic hernia without obstruction or gangrene (ICD-10) Low back pain ?M54.50 - Low back pain, unspecified (ICD-10) Irregular heart beat ?I49.9 - Cardiac arrhythmia, unspecified (ICD-10) Surgical History History of shoulder replacement ?Z96.619 - Presence of unspecified artificial shoulder joint (ICD-10) S/P rotator cuff repair ?Z98.890 - Other specified postprocedural states (ICD-10) History of colonoscopy ?Z98.890 - Other specified postprocedural states (ICD-10) S/P YANELI-BSO ?Z90.710 - Acquired absence of both cervix and uterus (ICD-10) ?Z90.722 - Acquired absence of ovaries, bilateral (ICD-10) ?Z90.79 - Acquired absence of other genital organ(s) (ICD-10) H/O cardiac catheterization ?Z98.890 - Other specified postprocedural states (ICD-10) H/O arthroscopy of shoulder ?Z98.890 - Other specified postprocedural states (ICD-10) H/O arthroscopy of knee ?Z98.890 - Other specified postprocedural states (ICD-10) History of appendectomy ?Z90.49 - Acquired absence of other specified parts of digestive tract (ICD-10) History of total knee arthroplasty ?Z96.659 - Presence of unspecified artificial knee joint (ICD-10) Social History Within the past year, how often did you have a drink containing alcohol: monthly or less Smoking status: Former smoker Non-prescribed substance use: denies use Previous occupational history: retired Highest level of school completed/degree received: high school graduate Little interest or pleasure in doing things: not at all Feeling down, depressed, or hopeless: not at all Meds Home Medications and Allergies Home Medications ?Medication ?Instructions ?Recorded ?Confirmed ?Type cholecalciferol (vitamin D3) 125 5,000 unit PO DAILY 02/16/23 04/22/25 History mcg (5,000 unit) tablet (Vitamin D3) flecainide 100 mg tablet 100 mg PO Q12H 02/16/23 04/22/25 History omeprazole 40 mg capsule,delayed 40 mg PO DAILY 02/16/23 04/22/25 History release spironolactone 25 mg tablet 25 mg PO DAILY 02/16/23 04/22/25 History (Aldactone) verapamil 180 mg tablet,extended 180 mg PO Q12H 02/16/23 04/22/25 History release (Calan SR) apixaban 5 mg tablet (Eliquis) 5 mg PO BID 05/11/23 04/22/25 History furosemide 40 mg tablet 40 mg PO DAILY 03/01/24 04/22/25 History naloxone 4 mg/actuation nasal 4 mg intranasal Q3M PRN opioid 05/17/24 04/22/25 Rx spray (Narcan) overdose #2 ea hydrocodone 5 mg-acetaminophen 325 1 tab PO TID PRN pain #90 tabs 10/26/24 04/22/25 Rx mg tablet penicillin V potassium 500 mg mg 02/11/25 History tablet baclofen 10 mg tablet 10 mg PO TID #90 tabs 03/06/25 04/22/25 Rx ipratropium 0.5 mg-albuterol 3 mg ml inhalation 04/22/25 History (2.5 mg base)/3 mL nebulization soln Allergies Allergy/AdvReac Type Severity Reaction Status Date / Time No Known Drug Allergies Allergy Verified 04/22/25 09:06 Exam Constitutional Documenting provider has reviewed patient's vital signs: yes Common normals: no apparent distress, oriented x3, healthy appearing, alert and well nourished General appearance: cooperative HENND Common normals: normocephalic, hearing grossly normal bilaterally and moist oral mucous membranes Head and scalp: normocephalic Eye Common normals: PERRL Pupil: PERRL Neck & C-Spine Common normals: full ROM General: normal visual inspection Chest Common normals: inspection of chest normal Respiratory Common normals: normal respiratory effort, no retractions and no use of accessory muscles Back & Pelvis Lumbar spine/lower back: ROM limited, pain with ROM and straight leg raise negative bilaterally Sacroiliac joints: SI joint(s) abnormal Other: right sij positive letitia(patricks), gaenslens, thigh thrust, compression test strength 5/5 in BLE sensation intact BLE Neuro Common normals: oriented x3 Sensorium/orientation: alert Psych Common normals: mental status grossly normal, thought process normal, cooperative, affect normal, speech normal and activity/motor behavior normal Speech: normal speech Thought process: normal thought process Results Additional Findings Additional findings: If on a controlled substance or opioids, I have checked an OARRS report on this patient and there are no aberrancies noted in the prescribing history.??If on a controlled substance or opioid a drug screen was completed and reviewed within the last year, and if there has not been a drug screen completed we ordered one today to monitor higher risk, state monitored pain medication use. As part of providing excellent, safe, comprehensive care, the following was completed at our patient's visit: 1. A medication reconciliation and review to ensure accurate knowledge of current/active medications, including asking our patients to inform us about any [id number]-[id number] medications or herbal remedies/nutritional supplements/alternative remedies. 2. A review to specifically ensure our patients have had annual screening for screening for depression, screening for tobacco use, and screening for unhealthy alcohol use. For concerning screenings had a discussion with the patient, provided patient education, and recommended follow-up with primary care provider when appropriate. If patient noted with a risk of falling, they received education on strength, gait, and balance training to prevent future risk of falling. Portions of this note may have been carried over from the previous visit and updated as appropriate. Please note this office utilizes paper charting in addition to the electronic medical record. A list of current medications, vitals, and PMH is available there as the clinical staff outside of myself do not have access to [employer] charting during the clinic day operations. As part of providing quality comprehensive care the current medications, vitals, and PMH were reviewed in the paper chart. Assessment and Plan Assessment and Plan (1) Lumbar stenosis with neurogenic claudication: Assessment and Plan: 04-22-25 bilateral L5-S1 TFESI >50% improvement in pain ongoing 4-04-05 right L4-5 L5-S1 TFESI >50% improvement greater than 3 months 2-25 left l4-5 l5-s1 TFESI >50% improvement greater than 3 months (2) Sacroiliitis: Assessment and Plan: 6 left SIJ injection >50% improvement ongoing The patient has had over 3 months of moderate to severe right SIJ pain with functional impairment and inadequate response to conservative care including NSAIDS (unless there are contraindication such as concurrent blood thinners), multiple oral or topical pain medications, and home exercise program/physical therapy.? Patient has completed >6 weeks of guided home exercise program and/or formal physical therapy program without relief of their symptoms.? The Oswestry Disability Index was completed, and the patient scored a 48%.? The patient noted the following:??moderate to severe pain with standing, walking, lifting, sleeping, social life, travel (3) Chronic use of opiate drug for therapeutic purpose: Assessment and Plan: I feel these medications are improving the patient's quality of life and allow them to tolerate activities of daily living as well as participate in recreational activity.? The patient does not report intolerable side effects. The patient is NOT opioid naive and non-pharmacologic and non-opioid treatment has failed to significantly relieve the patient's pain and improve functionality. The patient has a diagnosis that is related to a somatic or visceral pain etiology. ? ?? I reviewed with the patient the potential risks and side effects with the use of? opioid medications including but not limited to respiratory depression,? sedation, and even . Within the last 12 months I have verified the patient has access to naloxone should? these effects occur. The patient was advised to let? their family know they had Naloxone in case they would need to administer? the medication. I advised the patient to avoid the use of any other? sedation substances including alcohol, THC, and benzodiazepines while? taking opioid medications due to the risk of compounding side effects and? detrimental outcomes. within the last 12 months I have reviewed the [facility], pain treatment agreement and urine drug screen.? ?? A drug screen was completed within the last year, and no aberrancies were noted regarding their use of controlled substances. The patient understands they are subject to the terms and conditions of the pain contract that they have signed. ? ?? I have checked an OARRS report on this patient today and there are no aberrancies noted in the prescribing history.? (4) Lumbar spondylosis: (5) Chronic anticoagulation: Plan proceed with right SIJ injection continue current medication regimen, risks vs benefits reviewed f/u after injection
== END 2025-05-02 12:45 | disposition home or self-care (01) ==
LOC: PM 12:44
PROVIDERS: PCP Internal Medicine; Visit Provider Nurse Practitioner
DX: M48.062 Spinal stenosis, lumbar region with neurogenic claudication (principal); M46.1 Sacroiliitis, not elsewhere classified; Z79.891 Long term (current) use of opiate analgesic; M47.816 Spondylosis without myelopathy or radiculopathy, lumbar region; Z79.01 Long term (current) use of anticoagulants
CPT/HCPCS: G0463

== ENCOUNTER 2025-05-20 11:23 | Day surgery (SDC) | payer MEDICARE, SELFPAY ==
--- OUTSIDE RECORDS SUMMARY | 2025-05-20 11:27 | XMS_ITS | Clinical Summary ---
Author Organization [facility] Address [address] [facility] [place] [address] Phone Care Team Providers Care Export Specialist Name Role Phone Unavailable Primary Care Provider [...]
--- OUTSIDE RECORDS SUMMARY | 2025-05-20 11:27 | XMS_ITS | Clinical Summary ---
Author Organization [employer] [facility] Address [id number] [address] [place] [address] Care Team Providers Care Therapeutic Recreation Assistant Name Role Phone Unavailable Primary Care Provider [...] Medical Devices Not on file Insurance MEDICARE [facility]
--- OUTSIDE RECORDS SUMMARY | 2025-05-20 11:27 | XMS_ITS | Patient Health Record ---
Author Organization [facility] Address [address] [place] [address] Care Team Providers Care Warehouse Person Name Role Phone SHAIKH DOMINGUEZ Primary Care Provider James Garcia Unavailable [phone] Reason For Referral No Information Plan Of Treatment Pending Test Test Name Order Date MRI : Shoulder W/O Contrast Left - [id number] 03/05/2024 ORDERS 03/19/2024 Chest 2 views - [id number] 03/19/2024 Insurance Providers Payer Name Payer Address Payer Phone Subscriber Number Group Number Insured Name Patient Relationship to Insured Coverage Start Date Coverage End Date Medicare [employer] [address] [facility] [place] [phone] [id number] MAXIMUS HERRMANN Self - patient is the insured
[2025-05-20 11:29] VITALS: BP 161/78; PULSE 61; TEMP 36.4; O2SAT 96
--- OUTSIDE RECORDS SUMMARY | 2025-05-20 11:36 | XMS_ITS | CCD ---
Author Organization [facility] Care Team Providers Care Licensed Home Inspector Name Role Phone ZANE MCGUIRE Admitting Unavailable DMITRIY HENNESSY Referring Unavailable LUISANA JOHNSON Primary Care Unavailable ZANE MCGUIRE Attending Unavailable DMITIRY HENNESSY Surgeon Unavailable [place] Procedure Practitioner Unavailab Hong Adler Unavailable JOHNSON [...] Admitting Unavailable RIVER ., KAYLEY Attending Unavailable TAYLOR, DR HONG Morgan Consulting Unavailable JOHNSON ., [...] Provider Shaikh Denis MD Primary Care Provider [phone] Jair ALEXANDER Attending Unavailable SHAIKH DENIS Referring Unavailable Jair ALEXANDER Attending Unavailable MD [facility] Primary Care Provider DO James Jones Attending Provider [phone] YOLY Cruz Attending Provider [phone] Luisana Johnson MD Primary Care Provider Pedro Pablo Cruz MD Unavailable [phone] LUISANA JOHNSON Primary Care Unavailable BOO BUCHANAN Attending Unavailable PEDRO PABLO CRUZ Referring Unavailable LUISANA JOHNSON Primary Care Unavailable BOO BUCHANAN Referring Unavailable Wesley Long MD Primary Care Provider Monster Calvillo NP Unavailable [phone] Shaikh Denis MD Primary Care Provider Renny Hansen MD Primary Care Provider Pedro Pablo Cruz PA-C Attending Provider Tyrone ARMENTA Renny Primary Care Provider Pedro Pablo Cruz PA-C Attending Provider [phone] Tyrone ARMENTA Renny Referring Provider Katharina Toledo APRN Attending Provider Dmitriy Duque DO Attending Provider [phone] Sakina Cardenas DO Attending Provider [phone] Renny Hansen II Referring Provider [phone] Katharina Toledo APRN Attending Provider Renny Hansen MD Unavailable [phone] Gregory LIQUOR INSPECTOR, Cindi Unavailable [phone] Ramirez DIAGNOSTIC CARDIAC SONOGRAPHER, Lisa Unavailable Unavailable Ramirez DIAGNOSTIC CARDIAC SONOGRAPHER, Lisa Unavailable Giedraitis , Andrius Vytautas Attending Unavailable Giedraitis MD, Andrius Vytautas Attending Unavailable Giedraitis MD, Andrius Vytautas Attending Unavailable Giedraitis MD, Andrius Vytautas Attending Unavailable Giedraitis MD, Andrius Vytautas Attending Unavailable Giedraitis , Andrius Vytautas Attending Unavailable Tyrone ARMENTA Renny Primary Care Provider [phone] Emma Rose Attending Provider Tyrone ARMENTA Renny Referring Provider Katharina Toledo APRN Attending Provider DEREK HOLT Attending Unavailable SAKINA CARDENAS Referring Unavailable MINOODMITRIY SALCIDO Referring Unavailable DMITRIY HENNESSY Referring Unavailable KOLTON ALTMAN Attending Unavailable DEREK HOLT Referring Unavailable KOLTON ALTMAN Attending Unavailable KOLTON ALTMAN Attending Unavailable DEREK HOLT Attending Unavailable JAIR FLORIAN Attending Unavailable DMITRIY HENNESSY Referring Unavailable JAIR FLORIAN Attending Unavailable JAIR FLORIAN Attending Unavailable DEREK HOLT Attending Unavailable Pedro Pablo Cruz Admitting Unavailable Pedro Pablo Cruz Attending Unavailable Renny Hansen Primary Care Unavailable Dmitriy Duque Admitting Unavailable Dmitriy Duque Attending Unavailable Renny Hansen Primary Care Unavailable Renny Hansen Referring Unavailable Juan Monahan II Admitting Unavaila Juan Stephens II Attending UnavailRenny Hernandez Primary Care Unavailable Sakina Cardenas Jr Admitting Unavailable Sakina Cardenas Jr Attending Unavailable Renny Hansen Primary Care Unavailable DMITRIY DUQUE Attending Unavailable RENNY HANSEN Attending Unavailable JR. CARDENAS GEORGE C Attending Unavaila RENNY Barnhart Referring Unavailable JR. CARDENAS GEORGE C Attending Unavaila RENNY Barnhart Attending Unavailable RENNY HANSEN Attending Unavailable MONSTER CALVILLO Attending UnavailRENNY Narayan Attending Unavailable ELEANOR DUMONT Attending Unavailable RENNY HANSEN Attending Unavailable ELEANOR DUMONT Attending Unavailable SHANNON RUSSO Attending Unavailable RENNY HANSEN Attending Unavailable RENNY HANSEN Attending Unavailable SALOME CID Attending Unavailable RENNY HANSEN Referring Unavailable LUISANA LEAL Attending Unavailable Allergies Allergy Classification Reported Allergen(s) Allergy Type Date of Onset Reaction(s) Facility NSAIDs (1 source) meloxicam; Translations: [Mobic] Drug Allergy [facility] Repository Unclassified (1 source) No Known Medication Allergies; Translations: [No Known Medication Allergies] Propensity to adverse reactions (disorder) [facility] Repository (1 source) novacaine; Translations: [novacaine] Propensity to adverse reactions (disorder) 2 [facility] Repository (20 sources) NSAIDs Propensity to adverse reactions 4 HEART [facility] (7 sources) Adhesive agent; Translations: [adhesive] Allergy to substance 4 Swelling [facility] (3 sources) NSAIDS (Non-Steroidal Anti-Inflamma Allergy to substance 4 HEART ISSUES [facility] (20 sources) Digoxin Drug Allergy 4 [facility] Work Phone: (20 sources) Wound Dressing Adhesive Drug Allergy 4 [facility] Medications Current Medications Medication Drug Class(es) Dates Sig (Normalized) Sig (Original) acetaminophen 325 mg / HYDROcodone bitartrate 5 mg oral tablet (20 sources) Opioid Agonist Start: 06-21-2024 take 1 tablet by mouth in the morning, then take 1 tablet by mouth in the evening, then take 1 tablet by mouth at bedtime HYDROcodone-aceta minophen (Mentor) 5-325 MG tablet Take 1 tablet by mouth in the morning and 1 tablet in the evening and 1 tablet before bedtime. 06/21/2024 Active Start: 04-11-2024 End: 06-15-2024 take 1 tablet by mouth three times daily as needed for pain HYDROcodone-acetaminophen (Mentor) 5-325 MG tablet Indications: Chronic left shoulder [...] 90 tablet 1 01/30/2024 Active Start: 11-16-2023 take 1 tablet by julia th once daily in the morning Cholecalciferol, Vitamin D3, 125 mcg (5,000 unit) cap Take 1 tablet by mouth every morning. Active flecainide acetate 100 mg oral tablet (20 sources) Antiarrhythmic Start: 03-08-2024 take 1 tablet by mouth every twelve hours flecainide (Tambocor) 100 MG tablet Take 100 mg by mouth every 12 (twelve) hours 03/08/2024 Active Start: 01-11-2023 take 1 tablet by julia th once [...] take 1 tablet by mouth once daily Start: 03-21-2024 End: 10-04-2024 take 1 tablet [...] in the morning. 0 Active Multivitamin tablet (5 sources) Start: 09-25-2024 take 1 tablet by mouth once da ronald Start: 09-25-2024 take 1 tablet by julia th once daily Multivitamin tablet Active 1 TAB PO Daily September 25, 2024 12:00am nitrofurantoin, macrocrystals 25 mg / nitrofurantoin, monohydrate 75 mg oral capsule (6 sources) Nitrofuran Antibacterial Start: 04-24-2025 End: 05-01-2025 take 1 capsule by mouth in the morning nitrofurantoin, macrocrystal-monohydrate, (Macrobid) 100 MG capsule Indications: Hematuria, unspecified [...] mouth Daily 100 capsule 3 01/18/2025 Active take 1 capsule by mo uth every twenty-four hours Omeprazole 40 MG 1 capsule Orally Once a day Active penicillin v potassium 500 mg oral tablet (16 sources) penicillin v potassium (Veetid) 500 MG [...] Active Respiratory Therapy Supplies (Nebulizer/Tubing/Mout hpiece) kit (8 sources) Start: 04-18-20 Respiratory Therapy Supplies (Nebulizer/Tubing/Julia thpiece) kit Indications: Chronic obstructive pulmonary disease, unspecified COPD type (HCC) 1 each See administration instructions Use daily as needed per instructions on medication. 1 kit 04/18/2025 Active rOPINIRole 0.5 mg oral tablet (12 sources) Nonergot Dopamine Agonist Start: 02-19-20 End: 06-09-20 26 take 1 tablet by mouth at mealtime rOPINIRole (Requip) 0.5 MG tablet Indications: Restless Leg Syndrome Take 1 tablet (0.5 mg) by mouth in the evening. Take with meals 30 tablet 11 02/18/2025 02/18/2026 Active saccharomyces boulardii 250 mg oral capsule (8 sources) take 1 capsule by mouth in the morning saccharomyces boulardii (Florastor) 250 MG capsule Take 250 mg by mouth in the morning and 250 mg before bedtime. Active spironolactone 50 mg oral tablet (20 sources) Aldosterone Antagonist Start: 09-24-19 25 take 1 tablet by mouth in the morning spironolactone (Aldactone) 50 MG tablet Take 50 mg by mouth in the morning. 09/24/2024 Active Start: 11-16-2023 End: 10-17-2024 verapamil hydrochloride 180 mg extended release oral [...] Start: 11-16-2023 take 1 capsule by mo uth every twenty-four hours Start: 02-14-2023 End: 12-17-2024 take 1 capsule [...] 90 tab(s), Refills(s) 0, Pharmacy: [facility]/pharmacy #[id number], 141, cm, 01/11/23 10:30:00 EDT, Height/Length Dosing, [...] release oral tablet (20 sources) Start: 09-25-2024 End: 05-03-2025 take 1 tablet by mouth every twelve hours Acetaminophen (Tylenol Arthritis Pain) 650 mg tablet extended release Discontinued 650 MG PO Every 12 hours September 25, 2024 1:00am May 03, 2025 1:55pm End: 04-18-2025 take 2 tablets by mouth every six hours for pain acetaminophen (Tylenol) 500 MG tablet Indications: Axillary lymphadenopathy , Left arm pain Take 1,000 mg by mouth every 6 (six) hours if needed for mild pain 04/18/2025 Discontinued (Other) ascorbic acid 100 mg oral tablet (20 sources) Vitamin C End: 10-04-2024 take 1 tablet by mouth in the morning Ascorbic Acid (vitamin C) 100 MG tablet Take 100 mg by mouth in the morning. 10/04/2024 Discontinued ferrous sulfate 325 mg oral tablet (20 sources) Start: 09-25-2024 End: 05-03-2025 take 1 tablet by mouth once daily Ferrous Sulfate 325 mg (65 mg iron) tablet Discontinued 325 MG PO Daily September 25, 2024 1:00am May 03, 2025 1:55pm Start: 03-21-2024 End: 06-19-2024 take 1 tablet [...] by mouth every other day 10/04/2024 Discontinued lidocaine 0.05 mg/mg topical ointment (16 sources) Antiarrhythmic, Amide Local Anesthetic Start: 11-18-2023 End: 09-25-2024 Lidocaine 5 % ointment Discontinued 1 APPLIC TOPICAL Daily November 18, 2023 1:00am September 25, 2024 12:16pm Start: 11-18-2023 End: 09-25-2024 Lidocaine 5 % ointment Disco ntinued 1 APPLIC TOPICAL Daily November 18, 2023 [...] disease (20 sources) Atherosclerotic heart disease of [place] coronary [...] Onset: 5 Chronic Deficiency and other anemia (9 sources) Iron deficiency anemia; Translations: [Iron deficiency anemia, unspecified] Onset: 4 Episodic Deficiency and other anemia (8 sources) Iron deficiency anemia, unspecified; Translations: [Iron deficiency anemia, unspecified] Onset: 5 08-24-2024 Episodic Deficiency and other anemia (1 source) Deficiency and other anemia Disorders of lipid metabolism (13 sources) Hyperlipidemia, unspecified; Translations: [Hyperlipidemia] Onset: 3 04-18-2025 Chronic Diverticulosis and diverticulitis (20 sources) Diverticulosis [...] Onset: 3 Episodic Other aftercare (1 source) exterminator helper 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) use of anticoagulants; Translations: [SENIOR LIVING CURRNT USE 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] Onset: 3 Episodic Other aftercare (1 source) Other oil heaterman (current) drug therapy; Translations: [OTH ELECTRICAL PROSPECTING OBSERVER CURRENT DRUG THERAPY] Onset: 3 Episodic Other [...] chronic pain] Chronic Other nervous system disorders (17 sources) Chronic low back pain; Translations: [Other [...] Episodic Complication of device; implant or graft (20 sources) 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; Translations: [Pain due to internal orthopedic prosthetic devices, implants and grafts, initial encounter] Onset: 10-24-2024 4 Episodic Deficiency and other anemia (20 [...] [Bursopathy, unspecified] Onset: 01-12-2012 11-07-2023 Episodic Other diseases of veins and lymphatics (2 sources) Venous insufficiency (chronic) (peripheral); Translations: [Venous insufficiency (chronic) (peripheral)] Onset: 03-01-2023 Episodic Other gastrointestinal disorders (2 sources) Dysphagia; Translations: [Dysphagia, unspecified] Episodic Other gastrointestinal disorders (9 sources) Occult blood in stools; Translations: [Other [...] Translations: [Pain in joint, shoulder region] Onset: 05-22-2024 05-22-2024 Episodic Other non-traumatic joint disorders (1 [...] Onset: 01-12-2012 09-06-2023 Episodic Residual codes; unclassified (10 sources) H/O: Disorder; Translations: [Personal history of [...] Test Name Value Interpretation Reference Range Facility Follow-Upon 05-15-2025 Follow-Up [id number] Oliver Starks 1945 F Date Provider Department Center 05/15/2025 [facility]IR [facility] Family History Adopted: Yes Family history unknown: Yes Family Status - Relation Status Age at Mother Father Level of Service:79634 [place] OFFICE/OUTPATIENT ESTABLISHED LOW MDM 20 MIN Reason for Visit and Comments: Follow-up [100693] - Redness in arm is still there. Stills achy and very painful. Normal [facility] No Panel Informationon 04-25 STAPHYLOCOCCUS EPIDERMIDIS, HAEMOLYTICUS, LUGDUNENSIS, SAPROPHYTICUS (URINA 0 [facility] STAPHYLOCOCCUS EPIDERMIDIS, HAEMOLYTICUS, LUGDUNENSIS, SAPROPHYTICUS (URINA Not detected [facility] URINARY TRACT INFECTION (HTR X)on 04-25-2025 ACINETOBACTER BAUMANII 0 [facility] ACINETOBACTER BAUMANII Not detected [facility] RASHID ALBICANS, PARAPSILOSIS, TROPICALIS 0 [facility] RASHID ALBICANS, PARAPSILOSIS, TROPICALIS Not detected [facility] RASHID GLABRATA 0 [facility] RASHID GLABRATA Not detected [facility] RASHID KRUSEI 0 [facility] RASHID KRUSEI Not detected [facility] CITROBACTER FREUNDII 0 [facility] CITROBACTER FREUNDII Not detected [facility] ENTEROBACTER AEROGENES, CLOACAE 0 [facility] ENTEROBACTER AEROGENES, CLOACAE Not detected [facility] ENTEROCOCCUS FAECALIS, FAECIUM 0 [facility] ENTEROCOCCUS FAECALIS, FAECIUM Not detected [facility] ESCHERICHIA COLI 22.906 Abnormal [facility] ESCHERICHIA COLI Detected Abnormal [facility] Interpretation and review of laboratory results Abnormal [facility] KLEBSIELLA PNEUMONIAE, OXYTOCA 0 [facility] KLEBSIELLA PNEUMONIAE, OXYTOCA Not detected [facility] MORGANELLA MORGANII 0 [facility] MORGANELLA MORGANII Not detected [facility] PROTEUS MIRABILIS, VULGARIS 0 [facility] PROTEUS MIRABILIS, VULGARIS Not detected [facility] PSEUDOMONAS AERUGINOSA 0 [facility] PSEUDOMONAS AERUGINOSA Not detected [facility] SERRATIA MARCESCENS 0 [facility] SERRATIA MARCESCENS Not detected [facility] STAPHYLOCOCCUS AUREUS 0 [facility] STAPHYLOCOCCUS AUREUS Not detected [facility] STREPTOCOCCUS AGALACTIAE (GROUP B STREP) 0 [facility] STREPTOCOCCUS AGALACTIAE (GROUP B STREP) Not [facility] STREPTOC[facility] PYOGENES (GROUP A STREP) 0 [facility] STREPTOCOCCUS PYOGENES (GROUP A STREP) Not detected [facility] TET B, TET M 27.112 Abnormal [facility] TET B, TET M Detected Abnormal [facility] ALL CBC WITH AUTO DIFFon BASOPHILS ABSOLUTE AUTO 0.1 [facility] Basophils/100 WBC (Bld) 0.6 % 0.2 - 2.0 % [facility] Eosinophils/100 WBC (Bld) 2.2 % 0.9 - 7.0 % [facility] Erythrocyte distribution width (RBC) [Ratio] 16.6 % High 11.0 - 15.0 % [facility] Hematocrit (Bld) [Volume fraction] 26.4 % Low 36.0 - 48.0 % [facility] Hemoglobin (Bld) [Mass/Vol] 7.9 g/dL Low 12.0 - 16.0 g/dL [facility] IMMATURE GRANULOCYTES ABS AUTO 0.02 [facility] Immature granulocytes/100 WBC (Bld) 0.2 % 0.0 - 0.5 % [facility] Interpretation and review of laboratory results Abnormal [facility] LYMPHOCYTES ABSOLUTE AUTO 2 [facility] Lymphocytes/100 WBC (Bld) 23.5 % 20.5 - 60.0 % [facility] MCH (RBC) [Entitic mass] 22.3 pg Low 26.7 - 34.0 pg [facility] MCHC (RBC) [Mass/Vol] 29.9 g/dL 29.9 - 35.2 g/dL [facility] MCV (RBC) [Entitic vol] 74.6 fL Low 81.0 - 99.0 fL [facility] MONOCYTES ABSOLUTE AUTO 0.6 [facility] Monocytes/100 WBC (Bld) 7.1 % 1.7 - 12.0 % [facility] NEUTROPHILS ABSOLUTE AUTO 5.7 [facility] Neutrophils/100 WBC (Bld) 66.4 % 43.0 - 75.0 % [facility] Platelet mean volume (Bld) [Entitic vol] 8.7 fL Low 9.5 - 13.5 fL [facility] TBH EO # 0.2 [facility] TBH PLT 353 [facility] RBC 3.54 Low [facility] WBC 8.6 [facility] Urinalysis macro (dipstick) panel (U)on 04-24-2025 Bilirubin, UA Negative Negative - 4(70) +++ mg/dL [facility] Blood, UA Positive Negative - 50 Shadi/mcL [facility] Clarity, UA Clear [facility] Color, UA Yellow [facility] Glucose, UA Negative Negative - 1999(110) ++++ mg/dL [facility] Interpretation and review of laboratory results Abnormal [facility] Ketones, UA Negative Negative - 160(16) ++++ mg/dL [facility] Leukocytes, UA Negative Negative - 500+++ Rosette/mcL [facility] Nitrite, UA Negative Negative - Positive [facility] pH, UA 6 5 - 9 [facility] Protein, UA Negative Negative - 1999(20) ++++ mg/dL [facility] Spec Grav, UA 1.05 1 - 1.03 [facility] Urobilinogen, UA 0.2 0.2 - 12 mg/dL [facility] ALL BASIC METABOLIC PANELon 02-21-2025 Anion gap [Moles/Vol] 13.7 mmol/L [facility] Calcium [Mass/Vol] 9.3 mg/dL 8.5 - 10. 1 mg/dL [facility] Chloride [Moles/Vol] 100 mmol/L 98 - 10 7 mmol/L [facility] CO2 [Moles/Vol] 27.6 mmol/L 21.0 - 32.0 mmol/L [facility] Creatinine [Mass/Vol] 0.78 mg/dL 0.55 - 1.02 mg/dL [facility] GFR/1.73 sq M.predicted CKD-EPI (S/P/Bld) [Vol rate/Area] >60 >=60 mL/min/1.73m 2 [facility] Glucose [Mass/Vol] 100 mg/dL 74 - 106 mg/dL [facility] Interpretation and review of laboratory results Abnormal [facility] Potassium [Moles/Vol] 4.3 mmol/L 3.5 - 5.1 mmol/L [facility] Sodium [Moles/Vol] 137 mmol/L 136 - 145 mmol/L [facility] EGFR-NON AF GRENADIAN >60 >=60 mL/min/1.73m 2 [facility] Urea nitrogen [Mass/Vol] 22 mg/dL High 7.0 - 18.0 mg/dL [facility] Urea nitrogen/Creatinine [Mass ratio] 28.2 mg/mg [facility] ALL C REACTIVE PROTEINon CRP [Mass/Vol] mg/L NINF - 0.50 mg/dL [facility] No Panel Informationon 02-21 [facility] Follow-Upon 02-20-2025 Follow-Up [id number] Oliver Starks da T 1945 F Date Provider Department Center 02/20/2025 [facility] Family History Adopted: Yes Family history unknown: Yes Family Status - Relation Status Age at Mother Father Level of Service:14870 [place] OFFICE/OUTPATIENT ESTABLISHED MOD MDM 30 MIN [facility] Orders Onlyon 02-13-2025 Orders Only [id number] Oliver Starks da T 1945 F Date Provider Department [place] 02/13/2025 [facility] Family History Adopted: Yes Family history unknown: Yes Family Status - Relation Status Age at Mother Father [facility] 36on 01-18-2025 38 I called the patient . Labs are okay. Continue penicillin. [facility] Telephoneon 01-18-2025 Telephone [id number] Oliver Starks da T 1945 F Date Provider Department [place] 01/18/2025 JAIR [facility] Family History Adopted: Yes Family history unknown: Yes Family Status - Relation Status Age at Mother Father [facility] BASIC METABOLIC PANELon Anion gap [Moles/Vol] 10 mmol/L Normal 7-20 [facility] Comment on above: Performed By: #### L [id number] ####[facility] ([facility])[address] [place] [address] Calcium [Mass/Vol] 8.9 mg/dL Normal 8.6-10.3 [facility] Comment on above: Performed By: #### L [id number] ####[facility] ([facility])[address] [place] [address] Chloride [Moles/Vol] 103 mmol/L Normal 98-107 [facility] Comment on above: Performed By: #### L [id number] ####[facility] ([facility])[address] [place] [address] CO2 [Moles/Vol] 26 mmol/L Normal 21-31 [facility] Comment on above: Performed By: #### L [id number] ####[facility] ([facility])[address] [place] [address] Creatinine [Mass/Vol] 0.64 mg/dL Normal 0.60-1.20 [facility] Comment on above: Performed By: #### L [id number] ####[facility] ([facility])[address] [place] [address] GLOMERULAR FILTRATION RATE ML/MIN/1.73 SQ M.PREDICTED 91.0 mL/min/1.73m*2 Normal >60.0 [facility] Comment on above: Result Comment: [facility]???s estimated glomerular filtration rate (eGFR) will [...] of individuals. Performed By: #### L [id number] ####[facility] ([facility])[address] [place] [address] Glucose [Mass/Vol] 92 mg/dL Normal 70-100 [facility] Comment on above: Performed By: #### L [id number] ####[facility] ([facility])[address] [place] [address] Potassium [Moles/Vol] 4.1 mmol/L Normal 3.5-5.1 [facility] Comment on above: Performed By: #### L [id number] ####[facility] ([facility] [place] [address] Sodium [Moles/Vol] 135 mmol/L Low 136-145 [facility] Comment on above: Performed By: #### L [id number] ####[facility] ([facility])[address] [place] [address] Urea nitrogen [Mass/Vol] 17 mg/dL Normal 7-25 [facility] Comment on above: Performed By: #### L [id number] ####[facility] ([facility])[address] [place] [address] UREA NITROGEN/CREATININE (MASS RATIO) IN SER/PLAS 26.6 Normal [facility] Comment on above: Performed By: #### L [id number] ####[facility] ([facility])[address] [place] [address] C-REACTIVE PROTEINon 025 C REACTIVE PROTEIN (MG/L) IN SER/PLAS 6.8 mg/L High <=5.0 [facility] Comment on above: Result Comment: Test ing performed using a new methodology, turbidimetry. Normal ranges have been updated. Old normal range was <8 mg/L. Performed By: #### L [id number] ####[facility] ([facility])[address] [place] [address] CBC WITH AUTO DIFFERENTIALon 01-17-2025 Basophils (Bld) [#/Vol] 0.07 10*3/uL Normal 0.00-0.20 [facility] Comment on above: Performed By: #### L [id number] #### [facility] ([facility]) [address] [place] [address] Basophils/100 WBC (Bld) 0.9 % Normal 0.0-1.0 [facility] Comment on above: Performed By: #### L [id number] #### [facility] ([facility] [address] [place] [address] Eosinophils (Bld) [#/Vol] 0.16 10*3/uL Normal 0.00-0.50 [facility] [facility] Comment on above: Performed By: #### L [id number] #### [facility] [address] [place] [address] Eosinophils/100 WBC (Bld) 2.2 % Normal 0.0-6.0 [facility] Comment on above: Performed By: #### L [id number] #### [facility] ([facility]) [address] [place] [address] Erythrocyte distribution width (RBC) [Ratio] 18.4 % High 11.5-15.0 [facility] Comment on above: Performed By: #### L [id number] #### [facility] ([facility]) [address] [place] [address] ERYTHROCYTE MEAN CORPUSCULAR HEMOGLOBIN CONCENTRATION (G/DL) BY AUTOMATED 29.6 g/dL Low 32.0-35.0 [facility] Comment on above: Performed By: #### L [id number] #### [facility] ([facility]) [address] [place] [address] Hematocrit (Bld) [Volume fraction] 33.1 % Low 36.0-45.0 [facility] Comment on above: Performed By: #### L [id number] #### [facility] ([facility]) [address] [place] [address] Hemoglobin (Bld) [Mass/Vol] 9.8 g/dL Low 12.0-15.0 [facility] Comment on above: Performed By: #### L [id number] #### [facility] ([facility]) [address] [place] [address] Immature granulocytes (Bld) [#/Vol] 0.02 10*3/uL Normal 0.00-0.20 [facility] Comment on above: Performed By: #### L [id number] #### [facility] (BEAKER) [address] [place] [address] Immature granulocytes/100 WBC (Bld) 0.3 % Normal 0.0-1.0 [facility] Comment on above: Performed By: #### L [id number] #### [facility] ([facility]) [address] [place] [address] Lymphocytes (Bld) [#/Vol] 1.32 10*3/uL Normal 1.20-4.00 [facility] Comment on above: Performed By: #### L [id number] #### [facility] ([facility]) [address] [place] [address] Lymphocytes/100 WBC (Bld) 17.9 % Low 20.0-45.0 [facility] Comment on above: Performed By: #### L [id number] #### [facility] ([facility]) [address] [place] [place] [address] MCH (RBC) [Entitic mass] 25.1 pg Low 27.0-33.0 [facility] Comment on above: Performed By: #### L [id number] #### [facility] ([facility]) [address] [place] [address] MCV (RBC) [Entitic vol] 84.7 fL Normal 82.0-98.0 [facility] Comment on above: Performed By: #### L [id number] #### [facility] ([facility]) [address] [place] [address] Monocytes (Bld) [#/Vol] 0.50 10*3/uL Normal 0.10-1.00 [facility] Comment on above: Performed By: #### L [id number] #### [facility] ([facility]) [address] [place] [address] Monocytes/100 WBC (Bld) 6.8 % Normal 5.0-12.0 [facility] Comment on above: Performed By: #### L [id number] #### [facility] ([facility]) [address] [place] [address] Neutrophils (Bld) [#/Vol] 5.32 10*3/uL Normal 1.60-7.60 [facility] Comment on above: Performed By: #### L [id number] #### [facility] [address] [place] [address] Neutrophils/100 WBC (Bld) 71.9 % Normal 40.0-72.0 [facility] Comment on above: Performed By: #### L [id number] #### [facility] [address] [place] [address] NRBC (PER 100 WBCS) BY AUTOMATED COUNT 0.0 % Normal 0 [facility] Comment on above: Performed By: #### L [id number] #### [facility] ([facility]) [address] [place] [address] PLATELETS (10*3/UL) IN BLOOD AUTOMATED COUNT 338 10*3/uL Normal 150-400 [facility] Comment on above: Performed By: #### L [id number] #### [facility] ([facility]) [address] [place] [address] RBC (Bld) [#/Vol] 3.91 10*6/uL Normal 3.80-5.[address] [facility] Comment on above: Performed By: #### L [id number] #### [facility] ([facility]) [address] [place] [address] WBC (Bld) [#/Vol] 7.39 10*3/uL Normal 4.00-10.[address] [facility] Comment on above: Performed By: #### L [id number] #### [facility] ([facility]) [address] [place] [address] Office Visiton 01-17-2025 Follow-up visit [id number] Oliver Starks 1945 F Date Provider Department Center 01/17/2025 JAIR BOLAND [facility] INF Carol Ann Heal Family History Adopted: Yes Family history unknown: Yes Family Status - Relation Status Age at Mother Father Level of Service:53242 [place] OFFICE/OUTPATIENT NEW HIGH MDM 60 MINUTES Reason for Visit and Comments: New Patient [632] Normal [facility] Orders Onlyon 01-17-2025 Orders Only [id number] Oliver Starks 1945 F Date Provider Department Center 01/17/2025 MEHREEN BRAY [facility] DERM Carol Ann Heal Family History Adopted: Yes Family history unknown: Yes Family Status - Relation Status Age at Mother Father Normal [facility] 36on 01-07-2025 36 Advised patient to take 25mg of spirolactone. Patient advised she has 50mg tablet and will cut them in 1/2 until they are gone, then she will call for a new script. Normal [facility] Telephoneon 01-07-2025 Telephone [id number] Oliver Starks 1945 F Date Provider Department Center 01/07/2025 KARINA FRIEDMAN [facility] INF Carol Ann Heal Family History Adopted: Yes Family history unknown: Yes Family Status - Relation Status Age at Mother Father [facility] Telephoneon 01-04-2025 Telephone [id number] Oliver Starks 1945 F Date Provider Department Center 01/04/2025 [id number] BEAULIEU [facility] Yulisa [facility] Family History Adopted: Yes Family history unknown: Yes Family Status - Relation Status Age at Mother Father [facility] US axillaon 01-03-[facility] [place] [address] Ultrasound Report Signed Patient: Breann Starks MR#: [id number] 171 : 1945 Acct:[id number] Age/Sex: 79 / F ADM Date: 01/03/25 Loc: Room: [facility] Att[facility] Dr: Katharina Toledo APRN Ordering Provider: [...] Dictation Location: [facility] Tech: Ghazal Katie Transcribed By: [facility] 01/03/25 1542 Dictated By: Dimitrios Blanco MD 01/03/25 1532 Signed By: 01/03/25 1542 Normal [facility] Follow-Upon 01-01-2025 Follow-Up [id number] Oliver Starks 1945 F Date Provider Department Center 01/01/2025 DEREK NEUMANN MP ORTHO MPORTHO Family History Adopted: Yes Family history unknown: Yes Family Status - Relation Status Age at Mother Father Level of Service:66395 [place] OFFICE/OUTPATIENT ESTABLISHED LOW MDM 20 MIN (GC) Reason for Visit and Comments: Follow-up [080587] Pain [136] Normal [facility] Office Visiton 12-24-2024 Follow-up visit [id number] Oliver Starks 1945 F Date Provider Department Center 12/24/2024 [id number] HUMPHREY Family History Adopted: Yes Family history unknown: Yes Family Status - Relation Status Age at Mother Father Level of Service:27173 [place] OFFICE/OUTPATIENT ESTABLISHED MOD MDM 30 MIN Reason for Visit and Comments: Coronary Artery Disease [187] Hypertension [264117] Congestive Heart Failure [127] Hyperlipidemia [182] 3 month follow up [Other] Normal [facility] ALL BASIC METABOLIC PANELon 12-21-2024 Anion gap [Moles/Vol] 11.7 mmol/L [facility] Calcium [Mass/Vol] 9.1 mg/dL 8.5 - 10. 1 mg/dL [facility] Chloride [Moles/Vol] 100 mmol/L 98 - 10 7 mmol/L [facility] CO2 [Moles/Vol] 27.4 mmol/L 21.0 - 32.0 mmol/L [facility] Creatinine [Mass/Vol] 0.98 mg/dL 0.55 - 1.02 mg/dL [facility] GFR/1.73 sq M.predicted CKD-EPI (S/P/Bld) [Vol rate/Area] >60 >=60 mL/min/1.73m 2 [facility] Glucose [Mass/Vol] 114 mg/dL High 74 - 106 mg/dL [facility] Interpretation and review of laboratory results Abnormal [facility] Potassium [Moles/Vol] 4.1 mmol/L 3.5 - 5.1 mmol/L [facility] Sodium [Moles/Vol] 135 mmol/L Low 136 - 145 mmol/L [facility] TBH EGFR-NON AF GRE[place]DI[place] 55 Low >=60 mL/min/1.73m 2 [facility] Urea nitrogen [Mass/Vol] 22 mg/dL High 7.0 - 18.0 mg/dL [facility] Urea nitrogen/Creatinine [Mass ratio] 22.4 mg/mg [facility] C-REACTIVE PROTEINon 025 C REACTIVE PROTEIN (MG/L) IN SER/PLAS 9.6 mg/L High <=5.0 [facility] Comment on above: Result Comment: Test ing performed using a new methodology, turbidimetry. Normal ranges have been updated. Old normal range was <8 mg/L. Performed By: #### L [id number] ####[facility] ([facility]ER)[address] [place] [address] CBC WITH AUTO DIFFERENTIALon 11-27-2024 Basophils (Bld) [#/Vol] 0.07 10*3/uL Normal 0.00-0.20 [facility] Comment on above: Performed By: #### L [id number] #### [facility] ([facility]) [address] [place] [address] Basophils/100 WBC (Bld) 0.7 % Normal 0.0-1.0 [facility] Comment on above: Performed By: #### L [id number] #### [facility] ([facility]) [address] [place] [address] Eosinophils (Bld) [#/Vol] 0.13 10*3/uL Normal 0.00-0.50 [facility] Comment on above: Performed By: #### L [id number] #### [facility] [address] [place] [address] Eosinophils/100 WBC (Bld) 1.2 % Normal 0.0-6.0 [facility] Comment on above: Performed By: #### L [id number] #### [facility] ([facility] [address] [place] [address] Erythrocyte distribution width (RBC) [Ratio] 17.0 % High 11.5-15.0 [facility] Comment on above: Performed By: #### L [id number] #### [facility] ([facility]) [address] [place] [address] ERYTHROCYTE MEAN CORPUSCULAR HEMOGLOBIN CONCENTRATION (G/DL) BY AUTOMATED 30.8 g/dL Low 32.0-35.0 [facility] Comment on above: Performed By: #### L [id number] #### [facility] ([facility]) [address] [place] [address] Hematocrit (Bld) [Volume fraction] 38.6 % Normal 36.0-45.0 [facility] Comment on above: Performed By: #### L [id number] #### [facility] ([facility]) [address] [place] [address] Hemoglobin (Bld) [Mass/Vol] 11.9 g/dL Low 12.0-15.0 [facility] Comment on above: Performed By: #### L [id number] #### [facility] [address] [place] [address] Immature granulocytes (Bld) [#/Vol] 0.15 10*3/uL Normal 0.00-0.20 [facility] Comment on above: Performed By: #### L [id number] #### [facility] ([facility]) [address] [place] [address] Immature granulocytes/100 WBC (Bld) 1.4 % High 0.0-1.0 [facility] Comment on above: Performed By: #### L [id number] #### [facility] ([facility]) [address] [place] [address] Lymphocytes (Bld) [#/Vol] 2.18 10*3/uL Normal 1.20-4.00 [facility] Comment on above: Performed By: #### L [id number] #### [facility] ([facility]) [address] [place] [address] Lymphocytes/100 WBC (Bld) 20.4 % Normal 20.0-45.0 [facility] Comment on above: Performed By: #### L [id number] #### [facility] ([facility]) [address] [place] [address] MCH (RBC) [Entitic mass] 26.0 pg Low 27.0-33.0 [facility] Comment on above: Performed By: #### L [id number] #### [facility] [address] [place] [address] MCV (RBC) [Entitic vol] 84.5 fL Normal 82.0-98.0 [facility] Comment on above: Performed By: #### L [id number] #### [facility] ([facility]) [address] [place] [address] Monocytes (Bld) [#/Vol] 0.84 10*3/uL Normal 0.10-1.00 [facility] Comment on above: Performed By: #### L [id number] #### [facility] ([facility]) [address] [address] Monocytes/100 WBC (Bld) 7.9 % Normal 5.0-12.0 [facility] Comment on above: Performed By: #### L [id number] #### [facility] ([facility]) [address] [address] Neutrophils (Bld) [#/Vol] 7.33 10*3/uL Normal 1.60-7.60 [facility] Comment on above: Performed By: #### L [id number] #### [facility] ([facility]) [address] [address] Neutrophils/100 WBC (Bld) 68.4 % Normal 40.0-72.0 [facility] Comment on above: Performed By: #### L [id number] #### [facility] ([facility]) [address] [address] NRBC (PER 100 WBCS) BY AUTOMATED COUNT 0.0 % Normal 0 [facility] Comment on above: Performed By: #### L [id number] #### [facility] ([facility]) [address] [address] PLATELETS (10*3/UL) IN BLOOD AUTOMATED COUNT 411 10*3/uL High 150-400 [facility] Comment on above: Performed By: #### L [id number] #### [facility] ([facility]) [address] [address] RBC (Bld) [#/Vol] 4.57 10*6/uL Normal 3.80-5.[address] [facility] Comment on above: Performed By: #### L [id number] #### [facility] ([facility]) [address] [address] WBC (Bld) [#/Vol] 10.70 10*3/uL High 4.00-10.60 [facility] Comment on above: Performed By: #### L [id number] #### [facility] ([facility]) [address] [place] [address] Follow-Upon 11-27-2024 Follow-Up [id number] Tereza,Senai da T 1945 F Date Provider Department Center 11/27/2024 DEREK NEUMANN MP ORTHO MPORTHO Family History Adopted: Yes Family history unknown: Yes Family Status - Relation Status Age at Mother Father Level of Service:57228 [place] OFFICE/OUTPATIENT ESTABLISHED LOW MDM 20 MIN Reason for Visit and Comments: Follow-up [414051] [facility] Labon 11-27-2024 Lab [id number] Wojj,Senai da T 1945 F Date Provider Department Center 11/27/2024 2244-[facility] LAB RESOURCE MP LEATHA Jaeger Family History Adopted: Yes Family history unknown: Yes Family Status - Relation Status Age at Mother Father [facility] SEDIMENTATION RATEon 025 SEDIMENTATION RATE, ERYTHROCYTE 96 mm/hr High <30 [facility] Comment on above: Performed By: #### L [id number] #### [facility] ([facility]) [address] [place] [address] Orders Onlyon 11-19-2024 Orders Only [id number] Woyan,Senai da T 1945 F Date Provider Department Center 11/19/2024 Olga9-JAMES ALLEN MP ORTHO MPORTHO Family History Adopted: Yes Family history unknown: Yes Family Status - Relation Status Age at Mother Father [facility] Orders Onlyon 11-16-2024 Orders Only [id number] Woyan,Senai da T 1945 F Date Provider Department Center 11/16/2024 [id number] COHEN ORTHO MPORTHO Family History Adopted: Yes Family history unknown: Yes Family Status - Relation Status Age at Mother Father [facility] 36on 11-15-2024 36 Patient was informed and she is going to [facility] and states they do not have a radiologist to do the aspiration for the order sent over by Dr. Holt and patient will have to go somewhere else. Normal [facility] BODY FLUID CULTUREon 025 Bacteria identified Cx Nom (Unsp spec) STREPTOCOCCUS SANGUINIS Abnormal [facility] Comment on above: Result Comment: Isol ated from Broth Culture Streptococcus sanguinis Presumptive Identification Performed By: #### L [id number] ####[facility] ([facility])[address] [place] [address] GRAM STAIN RESULT Normal [facility] Comment on above: Result Comment: Many Polymorphonuclear leukocytes No organisms seen Performed By: #### L [id number] ####[facility] ([facility])[address] [place] [address] Office Visiton 11-13-2024 Follow-up visit [id number] Oliver Starks 1945 F Date Provider Department Center 11/13/2024 DEREK NEUMANN MP Family History Adopted: Yes Family history unknown: Yes Family Status - Relation Status Age at Mother Father Level of Service:78941 [place] OFFICE/OUTPATIENT NEW LOW MDM 30 MINUTES (25,GC) Reason for Visit and Comments: Pain [136] Normal [facility] Orders Onlyon 11-13-2024 Orders Only [id number] Oliver Starks da T 1945 Provider Department Center 11/13/2024 [id number]-ANNTMKRMQMARIELOS MARY MP ORTHO CHIDI Family History Adopted: Yes Family history unknown: Yes Family Status - Relation Status Age at Mother Father Normal [facility] 36on 11-08-2024 36 Patient was schedule Normal [facility] 36 Patient needs an elisabet t layla poss infection per dr cardenas. [employer] to dr holt. Normal [facility] Anisocytosis LM Ql (Bld)Orde red By: Sakina Cardenas on 10-24-2024 Anisocytosis Ql (Bld) Anisocytosis [Presence] in Blood by Light microscopy [facility] Basophils Auto (Bld) [#/Vol] Ordered By: Sakina Cardenas on 10-24-2024 Basophils (Bld) [#/Vol] Automated basophil count [facility] Basophils/100 WBC Auto (Bld) Ordered By: Sakina Cardenas on 10-24-2024 Basophils/100 WBC (Bld) Automated basophil % [facility] Basophils/100 WBC Manual cnt (Bld)Ordered By: Sakina Cardenas on 10-24-2024 Basophils/100 WBC (Bld) Basophils/100 leukocytes in Blood by Manual count 0-2 [facility] C reactive protein [Mass/vol ume] in Serum or PlasmaOrdered By: Sakina Cardenas on 10-24-2024 CRP [Mass/Vol] C reactive protein [Mass/volume] in Serum or Plasma High 0.0-0.5 [facility] C-Reactive Proteinon 025 C-Reactive Protein 1.4 mg/dL High 0.0-0.5 [facility] Comment on above: Result Comment: PERF ORMED BY: [place] [address] PATHOLOGIST REWINDER OPERATOR HELPER KATHLEEN RAMOS M.D. Performed By: #### C RP #### [address] CRP [Mass/Vol]on 10-24-2024 C-REACTIVE PROTEIN 1.4 mg/dL High 0.0 - 0.5 mg/dL [facility] Interpretation and review of laboratory results Abnormal [facility] Diff and CBCon 10-24-2024 Anisocytosis Ql (Bld) Slight Normal [facility] Comment on above: Performed By: #### D IFF CBC, ESR #### [address] Basophils/100 WBC (Bld) 2 % Normal 0-2 [facility] Comment on above: Performed By: #### D IFF CBC, ESR #### [facility] [address] [place] [address] Erythrocyte distribution width (RBC) [Ratio] 23.9 % High 11.9-15.3 [facility] Comment on above: Performed By: #### D IFF CBC, ESR #### [facility] [address] [place] [address] Giant Platelet Tally 1 /100{WBC} Normal [facility] Comment on above: Performed By: #### D IFF CBC, ESR #### [address] Hematocrit (Bld) [Volume fraction] 35.1 % Normal 34.0-46.4 [facility] Comment on above: Performed By: #### D IFF CBC, ESR #### [facility] [address] [place] [address] Hemoglobin (Bld) [Mass/Vol] 11.4 g/dL Low 11.8-15.4 [facility] Comment on above: Performed By: #### D IFF CBC, ESR #### [address] Hypochromasia Slight Normal [facility] Comment on above: Performed By: #### D IFF CBC, ESR #### [address] Lymphocytes/100 WBC (Bld) 19 % Normal 18-42 [facility] Comment on above: Performed By: #### D IFF CBC, ESR #### [address] MCH (RBC) [Entitic mass] 26.9 pg Normal 24.7-34.3 [facility] Comment on above: Performed By: #### D IFF CBC, ESR #### [address] MCV (RBC) [Entitic vol] 83.2 fL Normal 80-100 [facility] Comment on above: Performed By: #### D IFF CBC, ESR #### [address] Mean Corpuscular HGB Conc 32.4 g/dL Normal 32.0-35.0 [facility] Comment on above: Performed By: #### D IFF CBC, ESR #### [place] [address] [place] Monocytes/100 WBC (Bld) 6 % Normal 2-11 [facility] Comment on above: Performed By: #### D IFF CBC, ESR #### [facility] [address] [id number] [place] Platelet Estimate Normal Normal Normal [facility] Comment on above: Performed By: #### D IFF CBC, ESR #### [facility] [address] [place] [address] [place] Platelet mean volume (Bld) [Entitic vol] 7.0 fL Normal 6.3-10.7 [facility] Comment on above: Performed By: #### D IFF CBC, ESR #### [facility] [address] [place] [address] [place] Platelet Morphology Normal Normal Normal [facility] Comment on above: Performed By: #### D IFF CBC, ESR #### [facility] [address] [id number] [place] Platelets (Bld) [#/Vol] 403 10*3/uL Normal 150-450 [facility] Comment on above: Performed By: #### D IFF CBC, ESR #### [facility] [address] Polychromasia Moderate Normal [facility] Comment on above: Performed By: #### D IFF CBC, ESR #### [facility] [address] [id number] [place] RBC (Bld) [#/Vol] 4.21 10*6/uL Normal 3.60-5.00 [facility] Comment on above: Performed By: #### D IFF CBC, ESR #### [facility] [address] [id number] [place] RBC morphology finding Nom (Bld) Normal Normal Normal [facility] Comment on above: Performed By: #### D IFF CBC, ESR #### [facility] [address] [id number] [place] Segmented neutrophils/100 WBC (Bld) 73 % High 50-70 [facility] Comment on above: Performed By: #### D IFF CBC, ESR #### [facility] [address] [id number] [place] WBC (Bld) [#/Vol] 11.0 10*3/uL Normal 3.8-11.6 [facility] Comment on above: Performed By: #### D IFF CBC, ESR #### [facility] [address] Eosinophils Auto (Bld) [#/Vo l]Ordered By: Sakina Cardenas on 10-24-2024 Eosinophils (Bld) [#/Vol] Automated eosinophil count [facility] Eosinophils/100 WBC Auto (Bl d)Ordered By: Sakina Cardenas on 10-24-2024 Eosinophils/100 WBC (Bld) Automated eosinophil % [facility] Erythrocyte Sedimentation Ra aren 10-24-2024 ESR (Bld) [Velocity] 104 mm/h High 0-29 [facility] Comment on above: Result Comment: PERF ORMED BY: [place] [address] PATHOLOGIST REWINDER OPERATOR HELPER KATHLEEN RAMOS M.D. Performed By: #### D IFF CBC, ESR #### [facility] [address] Erythrocyte distribution wid th Auto (RBC) [Ratio]Ordered By: Sakina Cardenas on 10-24-2024 Erythrocyte distribution width (RBC) [Ratio] Erythrocyte distribution width [Ratio] by Automated count High 11.9-15.3 [facility] Erythrocyte morphology findi ng [Identifier] in BloodOrdered By: Sakina Cardenas on 10-24-2024 RBC morphology finding Nom (Bld) RBC morphology Normal [facility] Erythrocyte sedimentation ra te by Photometric methodOrdered By: Sakina Cardenas on 10-24-2024 ESR Photometric method (Bld) [Velocity] Erythrocyte sedimentation rate by Photometric method High 0-29 [facility] Giant platelets/100 leukocyt es [Ratio] in Blood by Manual countOrdered By: Sakina Cardenas on 10-24-2024 Giant platelets/100 WBC Manual cnt (Bld) [Ratio] Giant platelets/100 leukocytes [Ratio] in Blood by Manual count [facility] Hematocrit Auto (Bld) [Volum e fraction]Ordered By: Sakina Cardenas on 02-12-2025 Hematocrit (Bld) [Volume fraction] Hematocrit [Volume Fraction] of Blood by Automated count 34.0-46.4 [facility] Hemoglobin [Mass/volume] in BloodOrdered By: Sakina Cardenas on 10-24-2024 Hemoglobin (Bld) [Mass/Vol] Hemoglobin [Mass/volume] in Blood Low 11.8-15.4 [facility] Hypochromia LM Ql (Bld)Order ed By: Sakina Cardenas on 10-24-2024 Hypochromia Ql (Bld) Hypochromia [Presen ce] in Blood by Light microscopy [facility] Laboratory - Hematology and Cell countson 10-24-2024 Erythrocyte distribution width (RBC) [Ratio] 23.9 % High 11.9 - 15.3 % [facility] ESR (Bld) [Velocity] 104 mm/h High 0 - 29 [facility] Hematocrit (Bld) [Volume fraction] 35.1 % 34.0 - 46.4 % [facility] Hemoglobin (Bld) [Mass/Vol] 11.4 g/dL Low 11.8 - 15.4 g/dL [facility] MCH (RBC) [Entitic mass] 26.9 pg 24.7 - 34.3 pg [facility] MCHC (RBC) [Mass/Vol] 32.4 g/dL 32.0 - 35.0 g/dL [facility] MCV (RBC) [Entitic vol] 83.2 fL 80 - 100 fL [facility] Platelet mean volume (Bld) [Entitic vol] 7 fL 6.3 - 10.7 fL [facility] Platelets (Bld) [#/Vol] 403 10*3/uL 150 - 450 10*3/uL [facility] WBC (Bld) [#/Vol] 11 10*3/uL 3.8 - 11.6 10*3/uL [facility] Laboratory - Urinalysison RBC LM.HPF (Urine sed) [#/Area] 4.21 10*6/uL 3.60 - 5.00 10*6/uL [facility] WBC LM.HPF (Urine sed) [#/Area] 11 10*3/uL 3.8 - 11.6 10*3/uL [facility] Leukocytes [#/volume] correc aristeo for nucleated erythrocytes in Blood by Automated counOrdered By: Sakina Cardenas on 10-24-2024 WBC corrected for nucl RBC Auto (Bld) [#/Vol] Leukocytes [#/volume] corrected for nucleated erythrocytes in Blood by Automated coun 3.8-11.6 [facility] Lymphocytes Auto (Bld) [#/Vo l]Ordered By: Sakina Cardenas on 10-24-2024 Lymphocytes (Bld) [#/Vol] Lymphocytes [#/volume] in Blood by Automated count [facility] Lymphocytes/100 WBC Auto (Bl d)Ordered By: Sakina Cardenas on 10-24-2024 Lymphocytes/100 WBC (Bld) Lymphocytes/100 leukocytes in Blood by Automated count [facility] Lymphocytes/100 WBC Manual c nt (Bld)Ordered By: Sakina Cardenas on 10-24-2024 Lymphocytes/100 WBC (Bld) Lymphocytes/100 leukocytes in Blood by Manual count 18-42 [facility] MCH Auto (RBC) [Entitic mass ]Ordered By: Sakina Cardenas on 10-24-2024 MCH (RBC) [Entitic mass] MCH [Entitic mass] by Automated count 24.7-34.3 [facility] MCHC Auto (RBC) [Mass/Vol]Or dered By: Sakina Cardenas on 10-24-2024 MCHC (RBC) [Mass/Vol] MCHC [Mass/volume] by Automated count 32.0-35.0 [facility] MCV Auto (RBC) [Entitic vol] Ordered By: Sakina Cardenas on 10-24-2024 MCV (RBC) [Entitic vol] MCV [Entitic volume] by Automated count 80-100 [facility] Monocytes Auto (Bld) [#/Vol] Ordered By: Sakina Cardenas on 10-24-2024 Monocytes (Bld) [#/Vol] Automated blood monocyte count [facility] Monocytes/100 WBC Auto (Bld) Ordered By: Sakina Cardenas on 10-24-2024 Monocytes/100 WBC (Bld) Automated monocyte % [facility] Monocytes/100 WBC Manual cnt (Bld)Ordered By: Sakina Cardenas on 10-24-2024 Monocytes/100 WBC (Bld) Monocytes/100 leukocytes in Blood by Manual count 2-11 [facility] Neutrophils Auto (Bld) [#/Vo l]Ordered By: Sakina Cardenas on 10-24-2024 Neutrophils (Bld) [#/Vol] Neutrophils [#/volume] in Blood by Automated count [facility] Neutrophils/100 WBC Auto (Bl d)Ordered By: Sakina Cardenas on 10-24-2024 Neutrophils/100 WBC (Bld) Automated neutrophil % [facility] No Panel Informationon 10-24 Interpretation and review of laboratory results Abnormal [facility] Nucleated erythrocytes [Pres ence] in Blood by Automated countOrdered By: Sakina Cardenas on 10-24-2024 Nucleated RBC Auto Ql (Bld) Nucleated erythrocytes [Presence] in Blood by Automated count [facility] Platelet adequacy [Presence] in Blood by Light microscopyOrdered By: Sakina Cardenas on 10-24-2024 Platelets LM Ql (Bld) Platelet adequacy [Presence] in Blood by Light microscopy Normal [facility] Platelet mean volume Auto (B ld) [Entitic vol]Ordered By: Sakina Cardenas on 10-24-2024 Platelet mean volume (Bld) [Entitic vol] Platelet mean volume [Entitic volume] in Blood by Automated count 6.3-10.7 [facility] Platelet morphology finding [Identifier] in BloodOrdered By: Sakina Cardenas on 10-24-2024 Platelet morphology finding Nom (Bld) Platelet morphology finding [Identifier] in Blood Normal [facility] Platelets Auto (Bld) [#/Vol] Ordered By: Sakina Cardenas on 10-24-2024 Platelets (Bld) [#/Vol] Platelets [#/volume] in Blood by Automated count 150-450 [facility] Polychromasia [Presence] in Blood by Light microscopyOrdered By: Sakina Cardenas on 10-24-2024 Polychromasia LM Ql (Bld) Polychromasia [Presence] in Blood by Light microscopy [facility] RBC Auto (Bld) [#/Vol]Ordere d By: Sakina Cardenas on 10-24-2024 RBC (Bld) [#/Vol] Erythrocytes [#/volume] in Blood by Automated count 3.60-5.00 [facility] Segmented neutrophils/100 WB C Manual cnt (Bld)Ordered By: Skaina Cardenas on 10-24-2024 Segmented neutrophils/100 WBC (Bld) Manual blood segmented neutrophils/100 leukocytes High 50-70 [facility] WBC Auto (Bld) [#/Vol]Ordere d By: Sakina Cardenas on 10-24-2024 WBC (Bld) [#/Vol] Leukocytes [#/volume ] in Blood by Automated count 3.8-11.6 [facility] MM diagnostic mammo BI w/CAD on 10-16-2024 MM diagnostic mammo BI w/CAD [facility] [address] [place] [address] Ultrasound Report Signed Patient: Breann Starks MR#: [id number] : 1945 Acct:[id number] Age/Sex: 78 / F ADM Date: 10/16/24 Loc: [facility] Room: Type: [facility] Attending Dr: Dmitriy Duque DO Ordering Provider: Dmitriy Duque DO Date of Service: 10/16/24 US/US axilla: R92.8 ([id number]) MM/MM diagnostic mammo BI w/CAD: ENLARGED LT [...] Benton Jr., D.O.10/16/2024 2:20 PM Dictation Location: [facility] Tech: Ghazal Barber Transcribed By: STAR 10/16/24 1420 Dictated By: Francisco J Benton Jr, DO 10/16/24 1343 Signed By: 10/16/24 1420 Normal [facility] 36on 10-11-2024 36 [...] BMP in 1 week. 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 She verbalized understanding. Normal [facility] CA ECHO DOPPLER COMPLETEon 0 10-09-[address] [address] Cardiology Report Signed Patient: BREANN STARKS MR#: [id number] : 1945 Acct:[id number] Age/Sex: 78 / F ADM Date: 10/09/24 Loc: CARD Attending Dr: Kolton Altman M.D. Ordering Physician: Kolton Altman M.D. Date of Service: 10/09/24 Procedure(s): CA echo doppler complete Accession Number(s): [id number] cc: RENNY HANSEN ; Kolton Altman M.D. Patient Name: BREANN STARKS MR#: [id number] : 1945 Exam Date: 10/09/2024 Ordering Doctor: [...] Area (VTI): 1.49 cm2, 1.49 cm2 Deceleration Vermilion: 1.68 m/s2 Pressure Half-Time: 622.32 ms Peak [...] by: Sakina Evans (more content not included)... [facility] Radiology, Radiologist, - 10/09/[address] [address] Cardiology Report Signed Patient: BREANN STARKS MR#: [id number] : 1945 Acct:[id number] Age/Sex: 78 / F ADM Date: 10/09/24 Loc: CARD Attending Dr: Kolton Altman M.D. Ordering Physician: Kolton Altman M.D. Date of Service: 10/09/24 Procedure(s): CA echo doppler complete Accession Number(s): [id number] cc: RENNY HANSEN ; Kolton Altman M.D. Patient Name: BREANN STARKS MR#: [id number] : 1945 Exam Date: 10/09/2024 Ordering Doctor: [...] Area (VTI): 1.49 cm2, 1.49 cm2 Deceleration Vermilion: 1.68 m/s2 Pressure Half-Time: 622.32 ms Peak [...] SALAZAR Signed By: 10/09/241846 DD/ 44 TD/TT: Ground Crew Linesman: [facility] Radiology Study observation (narrative) [facility] CA ECHO DOPPLER COMPLETEOrde red By: Radiologist Radiology on 10-09-2024 [facility] Work Phone: ALL BASIC METABOLIC PANELon 10-03-2024 Anion gap [Moles/Vol] 12.4 mmol/L [facility] Calcium [Mass/Vol] 9.2 mg/dL 8.5 - 10. 1 mg/dL [facility] Chloride [Moles/Vol] 104 mmol/L 98 - 10 7 mmol/L [facility] CO2 [Moles/Vol] 27.8 mmol/L 21.0 - 32.0 mmol/L [facility] Creatinine [Mass/Vol] 0.73 mg/dL 0.55 - 1.02 mg/dL [facility] GFR/1.73 sq M.predicted CKD-EPI (S/P/Bld) [Vol rate/Area] >60 >=60 mL/min/1.73m 2 [facility] Glucose [Mass/Vol] 97 mg/dL 74 - 106 mg/dL [facility] Potassium [Moles/Vol] 4.2 mmol/L 3.5 - 5.1 mmol/L [facility] Sodium [Moles/Vol] 140 mmol/L 136 - 145 mmol/L [facility] TBH EGFR-NON AF GRENADIAN >60 >=60 mL/min/1.73m 2 [facility] Urea nitrogen [Mass/Vol] 16 mg/dL 7.0 - 18.0 mg/dL [facility] Urea nitrogen/Creatinine [Mass ratio] 21.9 mg/mg [facility] ALL LIPID PROFILE (FASTING)o n 10-03-2024 CHOL HDL RATIO 2.2 [facility] Comment on above: 3.3 - 4.4 LOW RISK 4.4 - 7.1 AVERAGE RISK 7.1 - 11.0 MODERATE RISK >11.0 HIGH RISK Cholesterol [Mass/Vol] 130 mg/dL NINF - 200 mg/dL [facility] Cholesterol in HDL [Mass/Vol] 59 mg/dL 40 - 60 mg/dL [facility] Comment on above: > or =60 mg/dl - LOW CARDIOVASCULAR RISK <40 mg/dl - HIGH CARDIOVASCULAR RISK Magnesium [Mass/Vol] 56.8 mg/dL [facility] Comment on above: <100 mg/dl OPTIMAL 100-129 mg/dl NEAR OR ABOVE OPTIMAL 130-159 mg/dl BORDERLINE HIGH 160-189 mg/dl HIGH >190 mg/dl VERY HIGH Magnesium [Mass/Vol] 14.2 mg/dL [facility] Triglyceride [Mass/Vol] 71 mg/dL NINF - 150 mg/dL [facility] No Panel Informationon 10-03 [facility] Anisocytosis LM Ql (Bld)Orde red By: Katharina Toledo on 10-02-2024 Anisocytosis Ql (Bld) Anisocytosis [Presence] in Blood by Light microscopy [facility] Anisocytosis [Presence] in B lood by Light microscopyOrdered By: Katharina Toledo on 10-02-2024 Anisocytosis Ql (Bld) Marked Normal [facility] Comment on above: Performed By: #### S CAN CBC, FE and TIBC, ARISTIDES #### [facility] [address] Basophils Auto (Bld) [#/Vol] Ordered By: Katharina Toledo on 10-02-2024 Basophils (Bld) [#/Vol] Automated basophil count 0.0-0.2 [facility] Basophils [#/volume] in Bloo d by Automated countOrdered By: Katharina Toledo on 10-02-2024 Basophils (Bld) [#/Vol] 0.1 10*3/uL Normal 0.0-0.2 [facility] Comment on above: Performed By: #### S CAN CBC, FE and TIBC, ARISTIDES #### [facility] [address] [place] [address] [place] Basophils/100 WBC Auto (Bld) Ordered By: Katharina Toledo on 10-02-2024 Basophils/100 WBC (Bld) Automated basophil % . [facility] Basophils/100 leukocytes in Blood by Automated countOrdered By: Katharina Toledo on 10-02-2024 Basophils/100 WBC (Bld) 0.8 % Normal . [facility] Comment on above: Performed By: #### S CAN CBC, FE and TIBC, ARISTIDES #### [address] shoulder LT w conon 10-02 CT shoulder LT w con [facility] [address] [place] [address] CT Scan Report Signed Patient: Breann Starks MR#: [id number] : 1945 Acct:[id number] Age/Sex: 78 / F ADM Date: 10/02/24 Loc: Room: Type: [facility] Attending Dr: Katharina Toledo APRN Copies to: [...] Etienne Rhodes M.D.10/02/2024 4:14 PM Dictation Location: [place] [address] Transcribed By: [facility] 10/02/24 1614 Dictated By: Etienne Rhodes DO 10/02/24 1610 Signed By: 10/02/24 161 Normal [facility] Creatinine (Bld) [Mass/Vol]O rdered By: Katharina Toledo on 10-02-2024 Creatinine [Mass/Vol] Whole blood creati nine measurement 0.6-1.3 [facility] Comment on above: ER/ESD physician is notified/shown all ISTAT results.Critical values may be confirmed by laboratory testing ifdeemed necessary by ER attending doctor. Eosinophils Auto (Bld) [#/Vo l]Ordered By: Katharina Jaegerbrandy on 10-02-2024 Eosinophils (Bld) [#/Vol] Automated eosinophil count 0.0-0.45 [facility] Eosinophils [#/volume] in Bl ood by Automated countOrdered By: Katharina Jaegerbrandy on 10-02-2024 Eosinophils (Bld) [#/Vol] 0.2 10*3/uL Normal 0.0-0.45 [facility] Comment on above: Performed By: #### S CAN CBC, FE and TIBC, ARISTIDES #### [facility] [address] Eosinophils/100 WBC Auto (Bl d)Ordered By: Katharina Tre on 10-02-2024 Eosinophils/100 WBC (Bld) Automated eosinophil % . [facility] Eosinophils/100 leukocytes i n Blood by Automated countOrdered By: Katharina Jaegerbrandy on 10-02-2024 Eosinophils/100 WBC (Bld) 2.3 % Normal . [facility] Comment on above: Performed By: #### S CAN CBC, FE and TIBC, ARISTIDES #### [facility] [address] [place] [address] Erythrocyte distribution wid th Auto (RBC) [Ratio]Ordered By: Katharina Tre on 10-02-2024 Erythrocyte distribution width (RBC) [Ratio] Erythrocyte distribution width [Ratio] by Automated count High 11.9-15.3 [facility] Erythrocyte distribution wid th [Ratio] by Automated countOrdered By: Katharina Tre on 10-02-2024 Erythrocyte distribution width (RBC) [Ratio] 29.3 % High 11.9-15.3 [facility] Comment on above: Performed By: #### S CAN CBC, FE and TIBC, ARISTIDES #### [facility] [address] [place] [address] Erythrocyte morphology findi ng [Identifier] in BloodOrdered By: Katharina Jaegercaesarsebas on 10-02-2024 RBC morphology finding Nom (Bld) RBC morphology [facility] RBC morphology finding Nom (Bld) N/A [facility] Erythrocytes [#/volume] in B lood by Automated countOrdered By: Katharina Toledo on 10-02-2024 RBC (Bld) [#/Vol] 3.98 10*6/uL Normal 3.60-5.00 [facility] Comment on above: Performed By: #### S CAN CBC, FE and TIBC, ARISTIDES #### [facility] [address] [place] [address] Ferritin [Mass/volume] in Se rum or PlasmaOrdered By: Katharina Tre on 10-02-2024 Ferritin [Mass/Vol] Ferritin [Mass/volum e] in Serum or Plasma 11.0-306.8 [facility] Ferritin [Mass/Vol] 54.8 ng/mL Normal 11.0-306.8 [facility] Comment on above: Result Comment: PERF ORMED BY: [place] [address] PATHOLOGIST REWINDER OPERATOR HELPER KATHLEEN RAMOS M.D. Performed By: #### S CAN CBC, FE and TIBC, ARISTIDES #### [facility] [address] [place] [address] Hematocrit Auto (Bld) [Volum e fraction]Ordered By: Katharina Tre on 10-02-2024 Hematocrit (Bld) [Volume fraction] Hematocrit [Volume Fraction] of Blood by Automated count Low 34.0-46.4 [facility] Hematocrit [Volume Fraction] of Blood by Automated countOrdered By: Katharina Tre on 10-02-2024 Hematocrit (Bld) [Volume fraction] 33.0 % Low 34.0-46.4 [facility] Comment on above: Performed By: #### S CAN CBC, FE and TIBC, ARISTIDES #### [facility] [address] [place] [address] [place] Hemoglobin [Mass/volume] in BloodOrdered By: Ktaharina Tre on 10-02-2024 Hemoglobin (Bld) [Mass/Vol] Hemoglobin [Mass/volume] in Blood Low 11.8-15.4 [facility] Hemoglobin (Bld) [Mass/Vol] 10.6 g/dL Low 11.8-15.4 [facility] Comment on above: Performed By: #### S CAN CBC, FE and TIBC, ARISTIDES #### [facility] [address] Hypochromia LM Ql (Bld)Order ed By: Katharina Toledo on 10-02-2024 Hypochromia Ql (Bld) Hypochromia [Presen ce] in Blood by Light microscopy [facility] Hypochromia Ql (Bld) [facility] ISTAT XRAY CREon 10-02-2024 Creatinine [Mass/Vol] 0.7 mg/dL 0.6 - 1.3 mg/dL [facility] Comment on above: ER/ESD physician is notified/shown all ISTAT results. Critical values may be confirmed by laboratory testing if deemed necessary by ER attending doctor. ISTAT GFR [facility] ISTAT XRay CREon 10-02-2024 ISTAT GFR >60.0 Normal [facility] Comment on above: Result Comment: PERF ORMED BY: [place] [address] PATHOLOGIST REWINDER OPERATOR HELPER KATHLEEN RAMOS M.D. Performed By: #### I SCRE #### [facility] [address] [place] [address] Iron [Mass/volume] in Serum or PlasmaOrdered By: Katharina Toledo on 10-02-2024 Iron [Mass/Vol] Iron [Mass/volume] i n Serum or Plasma Low 50-212 [facility] Iron [Mass/Vol] 36 ug/dL Low 50-212 [facility] Comment on above: Performed By: #### S CAN CBC, FE and TIBC, ARISTIDES #### [facility] [address] [place] [address] Iron and TIBC Profileon 09-13 % Iron Saturation 8.7 % Low 20-50 [facility] Comment on above: Performed By: #### S CAN CBC, FE and TIBC, ARISTIDES #### [facility] [address] Total Iron Binding Capacity 413 ug/dL Normal 255-450 [facility] Comment on above: Performed By: #### S CAN CBC, FE and TIBC, ARISTIDES #### [facility] [address] Leukocytes [#/volume] correc aristeo for nucleated erythrocytes in Blood by Automated counOrdered By: Katharina Toledo on 10-02-2024 WBC corrected for nucl RBC Auto (Bld) [#/Vol] Leukocytes [#/volume] corrected for nucleated erythrocytes in Blood by Automated coun 3.8-11.6 [facility] WBC corrected for nucl RBC Auto (Bld) [#/Vol] 8.7 10*3/uL 3.8-11.6 [facility] Leukocytes [#/volume] in Blo od by Automated countOrdered By: Katharina Toledo on 10-02-2024 WBC (Bld) [#/Vol] 8.7 10*3/uL Normal 3.8-11.6 [facility] Comment on above: Performed By: #### S CAN CBC, FE and TIBC, ARISTIDES #### [address] Lymphocytes Auto (Bld) [#/Vo l]Ordered By: Katharina Toledo on 10-02-2024 Lymphocytes (Bld) [#/Vol] Lymphocytes [#/volume] in Blood by Automated count 1.00-4.8 [facility] Lymphocytes [#/volume] in Bl ood by Automated countOrdered By: Katharina Toledo on 10-02-2024 Lymphocytes (Bld) [#/Vol] 1.4 10*3/uL Normal 1.00-4.8 [facility] Comment on above: Performed By: #### S CAN CBC, FE and TIBC, ARISTIDES #### [place] [address] [place] Lymphocytes/100 WBC Auto (Bl d)Ordered By: Katharina Toledo on 10-02-2024 Lymphocytes/100 WBC (Bld) Lymphocytes/100 leukocytes in Blood by Automated count . [facility] Lymphocytes/100 leukocytes i n Blood by Automated countOrdered By: Katharina Tre on 10-02-2024 Lymphocytes/100 WBC (Bld) 15.8 % Normal . [facility] Comment on above: Performed By: #### S CAN CBC, FE and TIBC, ARISTIDES #### [facility] [address] MCH Auto (RBC) [Entitic mass ]Ordered By: Katharina Toledo on 10-02-2024 MCH (RBC) [Entitic mass] MCH [Entitic mass] by Automated count 24.7-34.3 [facility] MCH [Entitic mass] by Automa aristeo countOrdered By: Katharina Toledo on 10-02-2024 MCH (RBC) [Entitic mass] 26.6 pg Normal 24.7-34.3 [facility] Comment on above: Performed By: #### S CAN CBC, FE and TIBC, ARISTIDES #### [facility] [address] MCHC Auto (RBC) [Mass/Vol]Or dered By: Katharina Toledo on 10-02-2024 MCHC (RBC) [Mass/Vol] MCHC [Mass/volume] by Automated count 32.0-35.0 [facility] MCHC (RBC) [Mass/Vol] 32.0 g/dL 32.0-35.0 [facility] MCV Auto (RBC) [Entitic vol] Ordered By: Katharina Toledo on 10-02-2024 MCV (RBC) [Entitic vol] MCV [Entitic volume] by Automated count 80-100 [facility] MCV [Entitic volume] by Auto mated countOrdered By: Katharina Toledo on 10-02-2024 MCV (RBC) [Entitic vol] 83.1 fL Normal 80-100 [facility] Comment on above: Performed By: #### S CAN CBC, FE and TIBC, ARISTIDES #### [facility] [address] Microcytes LM Ql (Bld)Ordere d By: Katharina Toledo on 10-02-2024 Microcytes Ql (Bld) Microcytes [Presence ] in Blood by Light microscopy [facility] Microcytes Ql (Bld) [facility] Monocytes Auto (Bld) [#/Vol] Ordered By: Katharina Tre on 10-02-2024 Monocytes (Bld) [#/Vol] Automated blood monocyte count 0.0-0.8 [facility] Monocytes [#/volume] in Bloo d by Automated countOrdered By: Katharina Tre on 10-02-2024 Monocytes (Bld) [#/Vol] 0.6 10*3/uL Normal 0.0-0.8 [facility] Comment on above: Performed By: #### S CAN CBC, FE and TIBC, ARISTIDES #### [facility] [address] [place] [address] [place] Monocytes/100 WBC Auto (Bld) Ordered By: Katharina Tre on 10-02-2024 Monocytes/100 WBC (Bld) Automated monocyte % . [facility] Monocytes/100 leukocytes in Blood by Automated countOrdered By: Katharina Tre on 10-02-2024 Monocytes/100 WBC (Bld) 7.3 % Normal . [facility] Comment on above: Performed By: #### S CAN CBC, FE and TIBC, ARISTIDES #### [facility] [address] [place] [address] [place] Neutrophils Auto (Bld) [#/Vo l]Ordered By: Katharina Tre on 10-02-2024 Neutrophils (Bld) [#/Vol] Neutrophils [#/volume] in Blood by Automated count 1.8-7.7 [facility] Neutrophils [#/volume] in Bl ood by Automated countOrdered By: Katharina Tre on 10-02-2024 Neutrophils (Bld) [#/Vol] 6.4 10*3/uL Normal 1.8-7.7 [facility] Comment on above: Performed By: #### S CAN CBC, FE and TIBC, ARISTIDES #### [facility] [address] [place] [address] [place] Neutrophils/100 WBC Auto (Bl d)Ordered By: Katharina Toledo on 10-02-2024 Neutrophils/100 WBC (Bld) Automated neutrophil % . [facility] Neutrophils/100 leukocytes i n Blood by Automated countOrdered By: Katharina Tre on 10-02-2024 Neutrophils/100 WBC (Bld) 73.8 % Normal . [facility] Comment on above: Performed By: #### S CAN CBC, FE and TIBC, ARISTIDES #### [facility] [address] No Panel InformationOrdered By: Katharina Toledo on 10-02-2024 Bedside Estimated GFR (eGFR) > 60.0 [facility] Nucleated erythrocytes [Pres ence] in Blood by Automated countOrdered By: Katharina Toledo on 10-02-2024 Nucleated RBC Auto Ql (Bld) Nucleated erythrocytes [Presence] in Blood by Automated count 0-0.5 [facility] Nucleated RBC Auto Ql (Bld) 0.0 /100{WBC} 0-0.5 [facility] Platelet adequacy [Presence] in Blood by Light microscopyOrdered By: Katharina Toledo on 10-02-2024 Platelets LM Ql (Bld) Platelet adequacy [Presence] in Blood by Light microscopy Normal [facility] Platelets LM Ql (Bld) Normal Normal [facility] Platelet mean volume Auto (B ld) [Entitic vol]Ordered By: Katharina Toledo on 10-02-2024 Platelet mean volume (Bld) [Entitic vol] Platelet mean volume [Entitic volume] in Blood by Automated count 6.3-10.7 [facility] Platelet mean volume [Entiti c volume] in Blood by Automated countOrdered By: Katharina Toledo on 10-02-2024 Platelet mean volume (Bld) [Entitic vol] 6.9 fL Normal 6.3-10.7 [facility] Comment on above: Performed By: #### S CAN CBC, FE and TIBC, ARISTIDES #### [facility] [address] Platelet morphology finding [Identifier] in BloodOrdered By: Katharina Toledo on 10-02-2024 Platelet morphology finding Nom (Bld) Platelet morphology finding [Identifier] in Blood Normal [facility] Platelet morphology finding Nom (Bld) Normal Normal [facility] Platelets Auto (Bld) [#/Vol] Ordered By: Katharina Jaegercaesarsebas on 10-02-2024 Platelets (Bld) [#/Vol] Platelets [#/volume] in Blood by Automated count 150-450 [facility] Platelets [#/volume] in Bloo d by Automated countOrdered By: Katharina Jaegerbrandy on 10-02-2024 Platelets (Bld) [#/Vol] 337 10*3/uL Normal 150-450 [facility] Comment on above: Performed By: #### S CAN CBC, FE and TIBC, ARISTIDES #### [facility] [address] Polychromasia [Presence] in Blood by Light microscopyOrdered By: Katharina Jaegerbrandy on 10-02-2024 Polychromasia LM Ql (Bld) Polychromasia [Presence] in Blood by Light microscopy [facility] Polychromasia LM Ql (Bld) Slight [facility] RBC Auto (Bld) [#/Vol]Ordere d By: Katharina Jaegerbrandy on 10-02-2024 RBC (Bld) [#/Vol] Erythrocytes [#/volume] in Blood by Automated count 3.60-5.00 [facility] Scan and CBCon 10-02-2024 Hypochromasia Slight Normal [facility] Comment on above: Performed By: #### S CAN CBC, FE and TIBC, ARISTIDES #### [facility] [address] Mean Corpuscular HGB Conc 32.0 g/dL Normal 32.0-35.0 [facility] Comment on above: Performed By: #### S CAN CBC, FE and TIBC, ARISTIDES #### [facility] [address] Microcytosis Slight Normal [facility] Comment on above: Performed By: #### S CAN CBC, FE and TIBC, ARISTIDES #### [facility] [address] NRBC% 0.0 /100{WBC} Normal 0-0.5 [facility] Comment on above: Performed By: #### S CAN CBC, FE and TIBC, ARISTIDES #### [address] Platelet Estimate Normal Normal Normal [facility] Comment on above: Performed By: #### S CAN CBC, FE and TIBC, ARISTIDES #### [address] Platelet Morphology Normal Normal Normal [facility] Comment on above: Result Comment: PERF ORMED BY: [place] [address] PATHOLOGIST REWINDER OPERATOR HELPER KATHLEEN RAMOS M.D. Performed By: #### S CAN CBC, FE and TIBC, ARISTIDES #### [address] Polychromasia Slight Normal [facility] Comment on above: Performed By: #### S CAN CBC, FE and TIBC, ARISTIDES #### [address] Serum or plasma iron binding capacity measurement (mass/volume)Ordered By: Katharina Toledo on 10-02-2024 Iron binding capacity [Mass/Vol] Iron binding capacity [Mass/volume] in Serum or Plasma 255-450 [facility] Iron binding capacity [Mass/Vol] 413 ug/dL 255-450 [facility] Serum or plasma iron saturat ion measurement (mass fraction)Ordered By: Katharina Toledo on 10-02-2024 Iron saturation [Mass fraction] Iron saturation [Mass Fraction] in Serum or Plasma Low 20-50 [facility] Iron saturation [Mass fraction] 8.7 % Low 20-50 [facility] Transferrin [Mass/volume] in Serum or PlasmaOrdered By: Katharina Toledo on 10-02-2024 Transferrin [Mass/Vol] Transferrin [Mass/volume] in Serum or Plasma 203-362 [facility] Transferrin [Mass/Vol] 295 mg/dL Normal 203-362 [facility] Comment on above: Performed By: #### S CAN CBC, FE and TIBC, ARISTIDES #### [address] WBC Auto (Bld) [#/Vol]Ordere d By: Katharina Toledo on 10-02-2024 WBC (Bld) [#/Vol] Leukocytes [#/volume ] in Blood by Automated count 3.8-11.6 [facility] Whole blood creatinine measu rementOrdered By: Katharina Toledo on 10-02-2024 Creatinine [Mass/Vol] 0.7 mg/dL Normal 0.6-1.3 [facility] Comment on above: ER/ESD physician is notified/shown all ISTAT results.Critical values may be confirmed by laboratory testing ifdeemed necessary by ER attending doctor. Result Comment: ER/E SD physician is notified/shown all ISTAT results. Critical values may be confirmed by laboratory testing if deemed necessary by ER attending doctor. Performed By: #### I SCRE #### [facility] [address] Office Visiton 09-24-2024 Follow-up visit [id number] Oliver Starks 1945 F Date Provider Department Center 09/24/2024 [id number] [facility] Family History Adopted: Yes Family history unknown: Yes Family Status - Relation Status Age at Mother Father Level of Service:94089 [place] OFFICE/OUTPATIENT ESTABLISHED MOD MDM 30 MIN Reason for Visit and Comments: Atrial Fibrillation [80] - Denies palpitations, lightheadedness/syncop e, and bleeding on Eliquis. Congestive Heart Failure [127] severe pulmonary hypertension [Other] - Denies chest pain and SOB. Edema [[id number]] - NOT taking lasix currently due to no LE edema. Normal [facility] Urinalysis macro (dipstick) panel (U)on 09-19-2024 Bilirubin, UA Negative Negative - 4(70) +++ mg/dL [facility] Healthcare Blood, UA Positive Negative - 50 Shadi/mcL [facility] Clarity, UA Cloudy [facility] Color, UA Dark Sara [facility] Glucose, UA Negative Negative - 2000(110) ++++ mg/dL [facility] Interpretation and review of laboratory results Abnormal [facility] Ketones, UA Positive Negative - 160(16) ++++ mg/dL [facility] Leukocytes, UA Moderate Negative - 500+++ Rosette/mcL [facility] Nitrite, UA Negative Negative - Positive [facility] pH, UA 5 5 - 9 [facility] Protein, UA 3+ Negative - 2000(20) ++++ mg/dL [facility] Spec Grav, UA 1.3 1 - 1.03 [facility] Urobilinogen, UA 0.2 0.2 - 12 mg/dL [facility] C reactive protein [Mass/vol ume] in Serum or PlasmaOrdered By: Pedro Pablo Cruz on 08-24-2024 CRP [Mass/Vol] C reactive protein [Mass/volume] in Serum or Plasma High 0.0-0.5 [facility] C-Reactive Proteinon 024 C-Reactive Protein 1.1 mg/dL High 0.0-0.5 [facility] Comment on above: Result Comment: PERF ORMED BY: [facility] [address] [place] [address] PATHOLOGIST REWINDER OPERATOR HELPER KATHLEEN RAMOS M.D. Performed By: #### C RP ####[facility] [id number] [place] [id number] [place] CBC W Auto Differential pane l (Bld)on 08-24-2024 Basophils (Bld) [#/Vol] 0.1 10*3/uL 0.0 - 0.2 10*3/uL [facility] Basophils/100 WBC Manual cnt (Syn fld) 0.9 % . [facility] Eosinophils (Bld) [#/Vol] 0.2 10*3/uL 0.0 - 0.45 10*3/uL [facility] Eosinophils/100 WBC Manual cnt (Syn fld) 2.6 % . [facility] Erythrocyte distribution width (RBC) [Ratio] 19.3 % High 11.9 - 15.3 % [facility] Hematocrit (Bld) [Volume fraction] 28.2 % Low 34.0 - 46.4 % [facility] Hemoglobin (Bld) [Mass/Vol] 8.6 g/dL Low 11.8 - 15.4 g/dL [facility] Interpretation and review of laboratory results Abnormal [facility] Lymphocytes (Bld) [#/Vol] 2.1 10*3/uL 1.00 - 4.8 10*3/uL [facility] Lymphocytes/100 WBC Manual cnt (Syn fld) 23.5 % . [facility] MCH (RBC) [Entitic mass] 21.8 pg Low 24.7 - 34.3 pg [facility] MCHC (RBC) [Mass/Vol] 30.4 g/dL Low 32.0 - 35.0 g/dL [facility] MCV (RBC) [Entitic vol] 71.9 fL Low 80 - 100 fL [facility] Monocytes (Bld) [#/Vol] 0.6 10*3/uL 0.0 - 0.8 10*3/uL [facility] Monocytes+Macrophages /100 WBC Manual cnt (Syn fld) 6.8 % . [facility] Neutrophils (Bld) [#/Vol] 5.9 10*3/uL 1.8 - 7.7 10*3/uL [facility] Neutrophils/100 WBC Manual cnt (Syn fld) 66.2 % . [facility] NRBC 0 /100{WBC} 0 - 0.5 /100{WBC} [facility] Platelet mean volume (Bld) [Entitic vol] 6.9 fL 6.3 - 10.7 fL [facility] Platelets (Bld) [#/Vol] 345 10*3/uL 150 - 450 10*3/uL [facility] RBC LM.HPF (Urine sed) [#/Area] 3.93 10*6/uL 3.60 - 5.00 10*6/uL [facility] WBC (Bld) [#/Vol] 8.9 10*3/uL 3.8 - 11.6 10*3/uL [facility] WBC LM.HPF (Urine sed) [#/Area] 8.9 10*3/uL 3.8 - 11.6 10*3/uL [facility] Complete Blood Count Auto Di ffon 08-24-2024 Basophils (Bld) [#/Vol] 0.1 10*3/uL Normal 0.0-0.2 [facility] Comment on above: Result Comment: PERF ORMED BY: [facility] [address] [address] PATHOLOGIST REWINDER OPERATOR HELPER MOHAMED M EL-FAKHARANY M.D. Performed By: #### F ER, [id number], CBC, FE and TIBC ####[address] Basophils/100 WBC (Bld) 0.9 % Normal . [facility] Comment on above: Performed By: #### F ER, [id number], CBC, FE and TIBC ####[address] Eosinophils (Bld) [#/Vol] 0.2 10*3/uL Normal 0.0-0.45 [facility] Comment on above: Performed By: #### F ER, [id number], CBC, FE and TIBC ####[address] Eosinophils/100 WBC (Bld) 2.6 % Normal . [facility] Comment on above: Performed By: #### F ER, [id number], CBC, FE and TIBC ####[address] Erythrocyte distribution width (RBC) [Ratio] 19.3 % High 11.9-15.3 [facility] Comment on above: Performed By: #### F ER, [id number], CBC, FE and TIBC ####[address] Hematocrit (Bld) [Volume fraction] 28.2 % Low 34.0-46.4 [facility] Comment on above: Performed By: #### F ER, [id number], CBC, FE and TIBC ####[address] Hemoglobin (Bld) [Mass/Vol] 8.6 g/dL Low 11.8-15.4 [facility] Comment on above: Performed By: #### F ER, [id number], CBC, FE and TIBC ####[address] Lymphocytes (Bld) [#/Vol] 2.1 10*3/uL Normal 1.00-4.8 [facility] Comment on above: Performed By: #### F ER, [id number], CBC, FE and TIBC ####[address] Lymphocytes/100 WBC (Bld) 23.5 % Normal . [facility] Comment on above: Performed By: #### F ER, [id number], CBC, FE and TIBC ####[address] MCH (RBC) [Entitic mass] 21.8 pg Low 24.7-34.3 [facility] Comment on above: Performed By: #### F ER, [id number], CBC, FE and TIBC ####[address] MCV (RBC) [Entitic vol] 71.9 fL Low 80-100 [facility] Comment on above: Performed By: #### F ER, [id number], CBC, FE and TIBC ####[address] Mean Corpuscular HGB Conc 30.4 g/dL Low 32.0-35.0 [facility] Comment on above: Performed By: #### F ER, [id number], CBC, FE and TIBC ####[address] Monocytes (Bld) [#/Vol] 0.6 10*3/uL Normal 0.0-0.8 [facility] Comment on above: Performed By: #### F ER, [id number], CBC, FE and TIBC ####[address] Monocytes/100 WBC (Bld) 6.8 % Normal . [facility] Comment on above: Performed By: #### F ER, [id number], CBC, FE and TIBC ####[address] Neutrophils (Bld) [#/Vol] 5.9 10*3/uL Normal 1.8-7.7 [facility] Comment on above: Performed By: #### F ER, [id number], CBC, FE and TIBC ####[address] Neutrophils/100 WBC (Bld) 66.2 % Normal . [facility] Comment on above: Performed By: #### F ER, [id number], CBC, FE and TIBC ####[address] NRBC% 0.0 /100{WBC} Normal 0-0.5 [facility] Comment on above: Performed By: #### F ER, [id number], CBC, FE and TIBC ####[address] Platelet mean volume (Bld) [Entitic vol] 6.9 fL Normal 6.3-10.7 [facility] Comment on above: Performed By: #### F ER, [id number], CBC, FE and TIBC ####[address] Platelets (Bld) [#/Vol] 345 10*3/uL Normal 150-450 [facility] Comment on above: Performed By: #### F ER, [id number], CBC, FE and TIBC ####[address] RBC (Bld) [#/Vol] 3.93 10*6/uL Normal 3.60-5.00 [facility] Comment on above: Performed By: #### F ER, [id number], CBC, FE and TIBC ####[address] WBC (Bld) [#/Vol] 8.9 10*3/uL Normal 3.8-11.6 [facility] Comment on above: Performed By: #### F ER, [id number], CBC, FE and TIBC ####[address] [id number] [place] [address] [place] Erythrocyte Sedimentation Ra aren 08-24-2024 ESR (Bld) [Velocity] 103 mm/h High 0-29 [facility] Comment on above: Result Comment: PERF ORMED BY: [facility] [address] [place] [address] PATHOLOGIST REWINDER OPERATOR HELPER KATHLEEN RAMOS M.D. Performed By: #### E SR ####[address] [id number] [place] [id number] [place] Erythrocyte sedimentation ra te by Photometric methodOrdered By: Pedro Pablo Cruz on 08-24-2024 ESR Photometric method (Bld) [Velocity] Erythrocyte sedimentation rate by Photometric method High 0-29 [facility] Ferritinon 08-24-2024 Ferritin [Mass/Vol] 8.6 ng/mL Low 11.0-306.8 [facility] Comment on above: Performed By: #### F ER, [id number], CBC, FE and TIBC ####[place] [id number] [place] Folate [Mass/volume] in Seru m or PlasmaOrdered By: Katharina Toledo on 08-24-2024 Folate [Mass/Vol] Folate [Mass/volume] in Serum or Plasma >5.9 [facility] Comment on above: Folate reference ran ge: >5.9 ng/mlThe WHO technical consultation on folate and vitamin [id number] has determined that folate concentrations lessthan 4 ng/ml are considered deficient. Folate [Mass/Vol] 28.0 ng/mL >5.9 [facility] Comment on above: Folate reference ran ge: >5.9 ng/mlThe WHO technical consultation on folate and vitamin [id number] has determined that folate concentrations lessthan 4 ng/ml are considered deficient. Iron and TIBC Profileon 08-12 % Iron Saturation 3.2 % Low 20-50 [facility] Comment on above: Performed By: #### F ER, [id number], CBC, FE and TIBC ####[address] [address] [place] [id number] [place] Iron [Mass/Vol] 14 ug/dL Low 50-212 [facility] Comment on above: Performed By: #### F ER, [id number], CBC, FE and TIBC ####[address] Total Iron Binding Capacity 437 ug/dL Normal 255-450 [facility] Comment on above: Performed By: #### F ER, [id number], CBC, FE and TIBC ####[address] Transferrin [Mass/Vol] 312 mg/dL Normal 203-362 [facility] Comment on above: Performed By: #### F ER, [id number], CBC, FE and TIBC ####[address] Vit. B12/Folate Profileon Folate 28.0 ng/mL Normal >5.9 [facility] Comment on above: Result Comment: Nayely te reference range: >5.9 ng/ml The WHO technical consultation on folate and vitamin b12 deficiencies has determined that folate concentrations less than 4 ng/ml are considered deficient. PERFORMED BY: [facility] [address] [place] [id number] PATHOLOGIST REWINDER OPERATOR HELPER KATHLEEN RAMOS M.D. Performed By: #### F ER, [id number], CBC, FE and TIBC ####[place] [id number] [place] Vitamin B12 ser/plasOrdered By: Katharina Toledo on 08-24-2024 Cobalamin (Vitamin B12) [Mass/Vol] Vitamin B12 ser/plas 180-914 [facility] Cobalamin (Vitamin B12) [Mass/Vol] 417 pg/mL Normal 180-914 [facility] Comment on above: Performed By: #### F ER, [id number], CBC, FE and TIBC ####[place] [id number] [place] TRANSFERRINon 07-25-2024 Transferrin [Mass/Vol] 284 mg/dL 192 - 364 mg/dL [facility] Comment on above: Performed at: [address] [id number] [employer] Miller: Baudilio Givens PhD, Phone: [phone] [facility] ALL CBC WITH AUTO DIFFon BASOPHILS ABSOLUTE AUTO 0.1 [facility] Basophils/100 WBC (Bld) 0.9 % 0.2 - 2.0 % [facility] Eosinophils/100 WBC (Bld) 0.9 % 0.9 - 7.0 % [facility] Erythrocyte distribution width (RBC) [Ratio] 17.7 % High 11.0 - 15.0 % [facility] Hematocrit (Bld) [Volume fraction] 29.9 % Low 36.0 - 48.0 % [facility] Hemoglobin (Bld) [Mass/Vol] 8.7 g/dL Low 12.0 - 16.0 g/dL [facility] IMMATURE GRANULOCYTES ABS AUTO 0.03 [facility] Immature granulocytes/100 WBC (Bld) 0.3 % 0.0 - 0.5 % [facility] Interpretation and review of laboratory results Abnormal [facility] LYMPHOCYTES ABSOLUTE AUTO 1.4 [facility] Lymphocytes/100 WBC (Bld) 14.1 % Low 20.5 - 60.0 % [facility] MCH (RBC) [Entitic mass] 22.3 pg Low 26.7 - 34.0 pg [facility] MCHC (RBC) [Mass/Vol] 29.1 g/dL Low 29.9 - 35.2 g/dL [facility] MCV (RBC) [Entitic vol] 76.7 fL Low 81.0 - 99.0 fL [facility] MONOCYTES ABSOLUTE AUTO 0.7 [facility] Monocytes/100 WBC (Bld) 6.6 % 1.7 - 12.0 % [facility] NEUTROPHILS ABSOLUTE AUTO 7.7 High [facility] Neutrophils/100 WBC (Bld) 77.2 % High 43.0 - 75.0 % [facility] Platelet mean volume (Bld) [Entitic vol] 9.3 fL Low 9.5 - 13.5 fL [facility] TBH EO # 0.1 [facility] TB PLT 328 [facility] TB RBC 3.9 Low [facility] TB WBC 10 [facility]RO IRON AND TIBCon 2023 Interpretation and review of laboratory results Abnormal [facility] TB IRON 17 ug/dL Low 50.0 - 170.0 ug/dL [facility] TB PERCENT IRON SATURATION 4.5 % [facility] TOTAL IRON BINDING CAPACITY 381 ug/dL 250.0 - 450.0 ug/dL [facility] Follow-up visit [id number] Oliver Starks Jonah 1945 F Date Provider Department Center 07/18/2024 [id number] MARYMADHAVI [facility] Family History Adopted: Yes Family history unknown: Yes Family Status - Relation Status Age at Mother Father Level of Service:09482 [place] OFFICE/OUTPATIENT ESTABLISHED MOD MDM 30 MIN Reason for Visit and Comments: Atrial Fibrillation [80] PACEMAKER [Other] Coronary Artery Disease [187] Hypertension [910434] Sinus node dysfunction [Other] - HAS [employer] PACER Obesity [[id number]] Edema [[id number]] Normal [facility] CNOVon 05-22-2024 CNOV Office Visit (LOORRM ) BREANN STARKS ([id number]) 1945 F Date Time Provider Department 05/22/24 [...] She was recommended for second opinion at [facility]. She also had a CRP and ESR [...] No date: COPD (chronic obstructive pulmonary disease) ([facility]) SOCIAL HISTORY: Tobacco Use: Never EXAMINATION: [...] I ordered (more content not included)... Normal [facility] XR SHLDR 4V AP/HECTRO/LAT/OUTLE T LTon 05-22-2024 XR SHLDR 4V AP/HECTOR/LAT/OUTLET [...] other significant abnormality. IMPRESSION: EXPECTED POSTOPERATIVE APPEARANCE Ground Crew Linesman: STEVE Transcribe Date/Time: May 22 2024 2:42P Dictated by : VILMA ABREU MD This examination was interpreted and the report reviewed and electronically signed by: VILMA ABREU MD on May 22 2024 2:42PM EST [id number] Normal [facility] XR Shoulder - left 4 Viewson 05-22-2024 IMPRESSION: EXPECTED POSTOPERATIVE APPEARANCE Ground Crew Linesman: PSCB Transcribe Date/Time: May 22 2024 2:42P [...] abnormality. DIVISION OF RADIOLOGY Provider, Andreina Sandra Zuleta - 05/22/2024 * * *Final [...] significant abnormality. IMPRESSION IMPRESSION: EXPECTED POSTOPERATIVE APPEARANCE Ground Crew Linesman: STEVE Transcribe Date/Time: May 22 2024 2:42P Dictated by : VILMA ABREU MD This examination was interpreted and the report reviewed and electronically signed by: VILMA ABREU MD on May 22 2024 2:42PM [facility] Radiology Study observation (narrative) [facility] XR Shoulder - left 4 ViewsOr dered By: [facility]cf Provider on 05-22-2024 [facility] ALL CBC WITH AUTO DIFFon BASOPHILS ABSOLUTE AUTO 0.0 [facility] Basophils/100 WBC (Bld) 0.6 % 0.2 - 2.0 % [facility] Eosinophils/100 WBC (Bld) 1.0 % 0.9 - 7.0 % [facility] Erythrocyte distribution width (RBC) [Ratio] 19.6 % High 11.0 - 15.0 % [facility] Hematocrit (Bld) [Volume fraction] 32.9 % Low 36.0 - 48.0 % [facility] Hemoglobin (Bld) [Mass/Vol] 9.7 g/dL Low 12.0 - 16.0 g/dL [facility] IMMATURE GRANULOCYTES ABS AUTO 0.02 [facility] Immature granulocytes/100 WBC (Bld) 0.3 % 0.0 - 0.5 % [facility] Interpretation and review of laboratory results Abnormal [facility] LYMPHOCYTES ABSOLUTE AUTO 1.4 [facility] Lymphocytes/100 WBC (Bld) 20.4 % Low 20.5 - 60.0 % [facility] MCH (RBC) [Entitic mass] 22.8 pg Low 26.7 - 34.0 pg [facility] MCHC (RBC) [Mass/Vol] 29.5 g/dL Low 29.9 - 35.2 g/dL [facility] MCV (RBC) [Entitic vol] 77.4 fL Low 81.0 - 99.0 fL [facility] MONOCYTES ABSOLUTE AUTO 0.7 [facility] Monocytes/100 WBC (Bld) 9.8 % 1.7 - 12.0 % [facility] NEUTROPHILS ABSOLUTE AUTO 4.7 [facility] Neutrophils/100 WBC (Bld) 67.9 % 43.0 - 75.0 % [facility] Platelet mean volume (Bld) [Entitic vol] 8.5 fL Low 9.5 - 13.5 [facility]L [facility] PLT 278 [facility] RBC 4.25 [facility] WBC 7.0 [facility] CLINISYNC [facility] Lab Reportson 03-07-2024 Lab Reports [id number]#1.0 0TIFF [facility] Consent for Procedure/Surger yon 03-05-2024 Consent for Procedure/Surgery [id number]#1.0 0TIFF [facility] Ambulatory Visit Summaryon 0 03-02-2024 Ambulatory Visit Summary BREANN STARKS :1945 Visit Date:03/02/2024 Ambulatory Visit Instructions Your Care Team Attending Physician - CATHERINE CUBA, Jair Bishop Primary Care Physician - Cate JUÁREZ, Barbara Lemus Referring Physician - CIRA CUBA, [facility] This Is Your Medications List Contact [...] for choosing us for your care. Normal [facility] ED Note-Physicianon 03-02-20 24 ED Note-Physician [id number]#1.00 TIFF Normal [facility] Insurance Correspondenceon 0 03-02-2024 Insurance Correspondence [id number]#1. 00TIFF Normal [facility] Lab Reportson 03-02-2024 Lab Reports [id number]#1.0 0TIFF Normal [facility] DXA Skeletal system Views fo r bone densityon 12-12-2023 Interpretation and review of laboratory results Normal [facility] normal [facility] Study observation (narrative) [facility] XR LSPINE W_OBLS AND FLEX_EX Ton [...] by: PAULA BROWN Date: 2023-01-31 11:[address] [facility] LIPID PROFILEon 12-16-2022 CHOL-HDL RATIO NORM SEE BELOW Normal [facility] Comment on above: Result Comment: 3.3 - 4.4 LOW RISK 4.4 - 7.1 AVERAGE RISK 7.1 - 11.0 MODERATE RISK >11.0 HIGH RISK Performed By: #### L IPID ####[facility] Kgzyeasjtl5086 [place], [place] [address]Vw. Erasmo Smith Cholesterol [Mass/Vol] 105 mg/dL Normal <=200 [facility] Comment on above: Performed By: #### L IPID ####[facility] Jsjzmcpmmf1502 [place], [place] [address]Hh. Erasmo Smith Cholesterol in HDL [Mass/Vol] 48 mg/dL Normal 40-60 [facility] Comment on above: Performed By: #### L IPID ####[facility] Zmmoadewgb0232 [place], [place] [address]Cc. Erasmo Smith Cholesterol in LDL [Mass/Vol] 48.2 mg/dL Normal [facility] Comment on above: Performed By: #### L IPID ####[facility] Acngkrmwbp8787 [place], [place] [address]Yb. Erasmo Smith Cholesterol.total/Cho lesterol in HDL [Mass ratio] 2.2 {ratio} Normal [facility] Comment on above: Performed By: #### L IPID ####[facility] Okewijxckv4828 [place], [place] [address]Yv. Erasmo Smith HDL NORMAL > or = 60 mg/dl - LO W CARDIOVASCULAR RISK <40 mg/dl - HIGH CARDIOVASCULAR RISK Normal [facility] Comment on above: Performed By: #### L IPID ####[facility] Lmbthuiqsu2159 [place], [place] [address]Ox. Erasmo Smith LDL CALC NORMAL SEE BELOW Normal [facility] Comment on above: Result Comment: <100 mg/dl OPTIMAL 100 - 129 mg/dl NEAR OR ABOVE OPTIMAL 130 - 159 mg/dl BORDERLINE HIGH 160 - 189 mg/dl HIGH >190 mg/dl VERY HIGH Performed By: #### L IPID ####[facility] C[address]obofst[address] [place] [id number]. Erasmo Smith Triglyceride [Mass/Vol] 44 mg/dL Normal <=150 [facility] Comment on above: Performed By: #### L IPID ####[facility] Bqshjwfkvp11[address] [place] [address]Dr. Erasmo Smith VLDL CALC 8.8 mg/dL Normal [facility] Comment on above: Performed By: #### L IPID ####[facility] Epesfrqrok[address] [place] [address]Dr. Erasmo Smith CULTURE BLOODon 12-04-2022 Microscopic examination [...] F Trimethoprim/Sulfameth oxazole <=[address] [facility] Comment on above: Performed By: #### B LDCX1 ####[facility] D[address]zvkeh[address] [place], [place] [address]Dr. Erasmo Smith BNPon 12-03-2022 Natriuretic peptide B (Bld) [Mass/Vol] 413.0 pg/mL Normal <=1,800.0 [facility] Comment on above: Performed By: #### B NAVAL ARCHITECT #### [facility] [address] [place] [address] [address] Erasmo Smith CBC AUTO DIFFon 12-03-2022 BASO # 0.0 103/ul Normal 0.0-0.1 [facility] Comment on above: Performed By: #### C BC ####[facility] Hwtgeiwqdc[address] [place], [place] [address]Dr. Erasmo Smith Basophils/100 WBC (Bld) 0.2 % Normal 0.2-2.0 [facility] Comment on above: Performed By: #### C BC ####[facility] Ghtmroadrg2254 [place] [address]Dr. Erasmo Smith EO # 0.4 103/ul Normal 0.0-0.7 [facility] Comment on above: Performed By: #### C BC ####[facility] Hyomhrevtz4236 [place] [address]Dr. Erasmo Smith Eosinophils/100 WBC (Bld) 2.1 % Normal 0.9-7.0 [facility] Comment on above: Performed By: #### C BC ####[facility] Xagjmajrfr[address] [place] [address]Dr. Erasmo Smith Erythrocyte distribution width (RBC) [Ratio] 17.2 % Critically high 11.0-15.0 [facility] Comment on above: Performed By: #### C BC ####[facility] Bfsigshmlg[address] [place], [place] [address]Dr. Erasmo Smith Hematocrit (Bld) [Volume fraction] 29.2 % Critically low 36.0-48.0 [facility] Comment on above: Performed By: #### C BC ####[facility] Zcnevszrwp[address] [place], [place] [address]Dr. Erasmo Smith Hemoglobin (Bld) [Mass/Vol] 9.5 g/dL Critically low 12.0-16.0 [facility] Comment on above: Performed By: #### C BC ####[facility] Qdfcgcamnx80[address] [place] [address]Dr. Erasmo Smith IG # 0.13 10e3/ul Critically high 0.00-0.03 [facility] Comment on above: Performed By: #### C BC ####[facility] Evxoklppxx[address] [place], [place] [address]Dr. Erasmo Smith IG % 0.8 % Critically high 0.0-0.5 [facility] Comment on above: Performed By: #### C BC ####[facility] Awxlbxhuci[address] [place], [place] [address]Dr. Erasmo Smith LYMPH # 1.8 103/ul Normal 1.2-3.8 [facility] Comment on above: Performed By: #### C BC ####[facility] Gmxvwcqlno3[address] [place] [address]Dr. Erasmo Smith Lymphocytes/100 WBC (Bld) 10.3 % Critically low 20.5-60.0 [facility] Comment on above: Performed By: #### C BC ####[facility] Aeztouzcgi65[address] [place] [address]Dr. Erasmo Smith MANUAL DIFF REQ NO Normal [facility] Comment on above: Performed By: #### C BC ####[facility] Cnvwzahzyi3666 [place] [id number]. Erasmo Smith MCH (RBC) [Entitic mass] 25.7 pg Critically low 26.7-34.0 [facility] Comment on above: Performed By: #### C BC ####[facility] Ixxztsypgd[address] [place], [place] [address]Dr. Erasmo Smith MCHC (RBC) [Mass/Vol] 32.5 g/dL Normal 29.9-35.2 [facility] Comment on above: Performed By: #### C BC ####[facility] Pbafsoxpdf54[address] [place], [place] [address]Dr. Erasmo Smith MCV (RBC) [Entitic vol] 79.1 fL Critically low 81.0-99.0 [facility] Comment on above: Performed By: #### C BC ####[facility] Hcuerhwvzd[address] [place], [place] [address]Dr. Erasmo Smith MONO # 1.5 103/ul Critically high 0.3-0.8 [facility] Comment on above: Performed By: #### C BC ####[facility] Ynbqqywwhy[address] [place], [place] [address]Dr. Erasmo Smith Monocytes/100 WBC (Bld) 8.7 % Normal 1.7-12.0 [facility] Comment on above: Performed By: #### C BC ####[facility] Izhxdcxjxa[address] [place], [place] [address]DrMeena Smith NEUT # 13.4 103/ul Critically high 1.4-6.5 [facility] Comment on above: Performed By: #### C BC ####[facility] Dwfhatddhp23[address] [place] [address]Dr. Erasmo Smith Neutrophils/100 WBC (Bld) 77.9 % Critically high 43.0-75.0 [facility] Comment on above: Performed By: #### C BC ####[facility] Fqhbsqfcam35[address] [place] [address]Dr. Erasmo Smith Platelet mean volume (Bld) [Entitic vol] 9.3 fL Critically low 9.5-13.5 [facility] Comment on above: Performed By: #### C BC ####[facility] V[address]ijkdymlq[address] [place] [address]Dr. Erasmo Smith PLT 205 103/ul Normal 150-450 [facility] Comment on above: Performed By: #### C BC ####[facility] Gbfvmlsecn[address] [place] [address]Dr. Erasmo Smith RBC 3.69 106/ul Critically low 4.20-5.40 [facility] Comment on above: Performed By: #### C BC ####[facility] Eeyoijglfx06[address] [place] [address]Dr. Erasmo Smith WBC 17.2 103/ul Critically high 4.0-11.0 [facility] Comment on above: Performed By: #### C BC ####[facility] Upzgdmxlfs[address] [place] [id number]. Erasmo Smith MAGNESIUMon 12-03-2022 Magnesium [Mass/Vol] 1.9 mg/dL Normal 1.8-2.4 [facility] Comment on above: Performed By: #### B NAVAL ARCHITECT #### [facility] [address] [place] [address] [address] Erasmo Smith PROF 14(COMP METB)on 023 Albumin [Mass/Vol] 2.6 g/dL Critically low 3.4-5.0 [facility] Comment on above: Performed By: #### B NAVAL ARCHITECT #### [facility] [address] [place] [address] [address] Erasmo Smith Albumin/Globulin [Mass ratio] 0.6 {ratio} Normal [facility] Comment on above: Performed By: #### B NAVAL ARCHITECT #### [facility] [address] [place] [address] Dr. Erasmo Smith ALP [Catalytic activity/Vol] 123 U/L Critically high 46-116 [facility] Comment on above: Performed By: #### B NAVAL ARCHITECT #### [facility] [address] [place] [address] Dr. Erasmo Smith ALT [Catalytic activity/Vol] 28 U/L Normal 14-59 [facility] Comment on above: Performed By: #### B NAVAL ARCHITECT #### [facility] [address] [place] [address] Dr. Erasmo Smith Anion gap [Moles/Vol] 9.4 mmol/L Normal [facility] Comment on above: Performed By: #### B NAVAL ARCHITECT #### [facility] [address] [place] [address] Dr. Erasmo Smith AST [Catalytic activity/Vol] 21 U/L Normal 15-37 [facility] Comment on above: Performed By: #### B NAVAL ARCHITECT #### [facility] [address] [place] [address] Dr. Erasmo Smith Bilirubin [Mass/Vol] 0.3 mg/dL Normal 0.2-1.0 [facility] Comment on above: Performed By: #### B NAVAL ARCHITECT #### [facility] [address] [place] [address] Dr. Erasmo mSith Calcium [Mass/Vol] 8.3 mg/dL Critically low 8.5-10.1 [facility] Comment on above: Performed By: #### B NAVAL ARCHITECT #### [facility] [address] [place] [address] Dr. Erasmo Smith Chloride [Moles/Vol] 105 mmol/L Normal 98-107 [facility] Comment on above: Performed By: #### B NAVAL ARCHITECT #### [facility] [address] [place] [address] Dr. Erasmo Smith CO2 [Moles/Vol] 27.1 mmol/L Normal 21.0-32.0 [facility] Comment on above: Performed By: #### B NAVAL ARCHITECT #### [facility] [address] [place] [address] [address] Erasmo Smith Creatinine [Mass/Vol] 0.55 mg/dL Normal 0.55-1.02 [facility] Comment on above: Performed By: #### B NAVAL ARCHITECT #### [facility] [address] [place] [address] [address] Erasmo Smith EGFR-AF GRENADIAN >60 Normal >=60 [facility] Comment on above: Performed By: #### B NAVAL ARCHITECT #### [facility] [address] [place] [address] [address] Erasmo Smith EGFR-NON AF GRENADIAN >60 Normal >=60 [facility] Comment on above: Performed By: #### B NAVAL ARCHITECT #### [facility] [address] [place] [address] Dr. Erasmo Smith Globulin (S) [Mass/Vol] 4.0 g/dL Normal [facility] Comment on above: Performed By: #### B NAVAL ARCHITECT #### [facility] [address] [place] [address] Dr. Erasmo Smith Glucose [Mass/Vol] 132 mg/dL Critically high 74-106 [facility] Comment on above: Performed By: #### B NAVAL ARCHITECT #### [facility] [address] [place] [address] Dr. Erasmo Smith Potassium [Moles/Vol] 3.5 mmol/L Normal 3.5-5.1 [facility] Comment on above: Performed By: #### B NAVAL ARCHITECT #### [facility] [address] [place] [address] Dr. Erasmo Smith Protein [Mass/Vol] 6.6 g/dL Normal 6.4-8.2 [facility] Comment on above: Performed By: #### B NAVAL ARCHITECT #### [facility] [address] [place] [address] Dr. Erasmo Smith Sodium [Moles/Vol] 138 mmol/L Normal 136-145 [facility] Comment on above: Performed By: #### B NAVAL ARCHITECT #### [facility] [address] [place] [address] [address] Erasmo Smith Urea nitrogen [Mass/Vol] 24.0 mg/dL Critically high 7.0-18.0 [facility] Comment on above: Performed By: #### B NAVAL ARCHITECT #### [facility] [address] [place] [address] [address] Erasmo Smith Urea nitrogen/Creatinine [Mass ratio] 43.6 mg/mg Normal [facility] Comment on above: Performed By: #### B NAVAL ARCHITECT #### [facility] [address] [place] [address] [address] Erasmo Smith PROTIMEon 12-03-2022 INR Coag (PPP) [Relative time] 4.41 {INR} Critically high [facility] Comment on above: Performed By: #### C MREP #### [facility] [address] [place] [address] Dr. Erasmo Smith INR GUIDELINES SEE BELOW Normal [facility] Comment on above: Result Comment: ABNER RED INR: 2.0 - 3.0 CONDITIONS NOT LISTED BELOW 2.5 - 3.5 FOR PROSTHETIC HEART VALVE REPLACEMENT 2.5 - 3.5 RECURRENT THROMBOSIS Performed By: #### C MREP #### [facility] [address] [place] [address] Dr. Erasmo Smith PT Coag (PPP) [Time] 43.0 s Critically high 9.0-11.6 [facility] Comment on above: Performed By: #### C MREP #### [facility] [address] [place] [address] Dr. Erasmo Smith BLOOD CULTURE ID PANELon A. baumannii Not detected Normal NOT DETECTED The [facility] Comment on above: Performed By: #### B CID2 ####[facility] Pqnvplrjrf[address] [place], [place] [address]Dr. Erasmo Smith Bacteriodes fragilis Not detected Normal NOT DETECTED [facility] Comment on above: Performed By: #### B CID2 ####[facility] Yfqrpvmjsp[address] [place] [address]Dr. Erasmo Smith BCID CONTROLS PASSED Normal [facility] Comment on above: Performed By: #### B CID2 ####[facility] Oxgukuzurz[address] [place] [address]Dr. Erasmo Smith BCIDBTHD BLOOD CULTURE BOTTLE INFORMATION Normal [facility] Comment on above: Performed By: #### B CID2 ####[facility] Jyhtmxdffx023[address] [place] [address]Dr. Yiean Smith BCIDHD1 ANTIMICROBIAL RESISTANCE GENES [facility] Comment on above: Performed By: #### B CID2 ####[facility] Mmpxbujcae[address] [place] [address]Dr. Yiean Smith BCIDHD2 SEE BELOW [facility] Comment on above: Result Comment: Note : Antimicrobial resitance can occur via multiple mechanisms. A Not Detected result for the [employer] antomicrobial resistance gene assays does not indicate antimicrobial susceptibility. Subculturing is required for species identification and susceptibility testing of isolates. Performed By: #### B CID2 ####[facility] Mgbhgyfpqk14[address] [place], [place] [address]Dr. Yiean Smith BCIDHD3 Positive [facility] Comment on above: Performed By: #### B CID2 ####[facility] C[address]ewuuk[address] [place], [place] [address]Dr. Yiean Smith BCIDHD4 Negative [facility] Comment on above: Performed By: #### B CID2 ####[facility] E[address]xgvjtdw[address] [place] [address]Dr. Yiean Smith BCIDHD5 YEAST [facility] Comment on above: Performed By: #### B CID2 ####[facility] Ssjdqqqfsx9223 [place] [address]Dr. Yilan Smith Bottle Set: Set 1 [facility] Comment on above: Performed By: #### B CID2 ####[facility] Kitlfjqest458[address] [place], [place] [address]Dr. Yilan Smith Bottle: Anaerobic [facility] Comment on above: Performed By: #### B CID2 ####[facility] Aqfngewakh117[address] [place], [place] [address]Dr. Yilan Simth C. neoformans/gattii Not detected Normal NOT DETECTED [facility] Comment on above: Performed By: #### B CID2 ####[facility] Kasgcriizi[address] [place] [address]Dr. Yiean Smith Rashid albicans Not detected Normal NOT DETECTED [facility] Comment on above: Performed By: #### B CID2 ####[facility] Xtbudtdeod7[address] [place] [address]Dr. Yiean Smith Rashid auris Not detected Normal NOT DETECTED [facility] Comment on above: Performed By: #### B CID2 ####[facility] Btgkypxxrp27[address] [place], [place] [address]Dr. Yiean Smith Rashid glabrata Not detected Normal NOT DETECTED [facility] Comment on above: Performed By: #### B CID2 ####[facility] Zjcenywsnf175[address] [place], [place] [address]Dr. Yiean Smith Rashid Krusei Not detected Normal NOT DETECTED [facility] Comment on above: Performed By: #### B CID2 ####[facility] Whpllijiug48[address] [place], [place] [address]Dr. Yiean Smith Rashid Parapsilosis Not detected Normal NOT DETECTED [facility] Comment on above: Performed By: #### B CID2 ####[facility] Qpnldikpks[address] [place], [place] [address]Dr. Yiean Smith Rashid Tropicalis Not detected Normal NOT DETECTED [facility] Comment on above: Performed By: #### B CID2 ####[facility] Arzmuqhzyo54[address] [place], [place] [address]Dr. Erasmo Smith CTX-M Resistant Gene Not Applicable Normal NOT DETECTE D [facility] Comment on above: Performed By: #### B CID2 ####[facility] Ohxrfykhyx8[address] [place], [place] [address]Dr. Yiean Smith E. Cloacae complex Not detected Normal NOT DETECTED [facility] Comment on above: Performed By: #### B CID2 ####[facility] Defmhmhxkz89[address] [place], [place] [address]Dr. Yiean Smith E. faecalis Not detected Normal NOT DETECTED [facility] Comment on above: Performed By: #### B CID2 ####[facility] Koklvuoevt[address] [place] [address]Dr. Erasmo Smith E. faecium Not detected Normal NOT DETECTED [facility] Comment on above: Performed By: #### B CID2 ####[facility] Hazmrttvnq5428 [place] [address]Dr. Erasmo Smith Enterobacteriaceae Detected Critically abnormal NOT DETECTED [facility] Comment on above: Performed By: #### B CID2 ####[facility] Bgewbfxvji3932[address] [place], [place] [address]Dr. Erasmo Smith Escherichia coli Detected Critically abnormal NOT DETECTED [facility] Comment on above: Performed By: #### B CID2 ####[facility] Xxxhfuaekh343[address] [place], [place] [address]Dr. Erasmo Smith H. influenzae Not detected Normal NOT DETECTED [facility] Comment on above: Performed By: #### B CID2 ####[facility] Ocewrhamuj[address] [place], [place] [address]Dr. Erasmo Smith IMP Resistant Gene Not Applicable Normal NOT DETECTED [facility] Comment on above: Performed By: #### B CID2 ####[facility] Ghrlbxqhfa713[address] [place], [place] [address]Dr. Erasmo Smith K. oxytoca Not detected Normal NOT DETECTED [facility] Comment on above: Performed By: #### B CID2 ####[facility] Lzparodjos187[address] [place], [place] [address]Dr. Erasmo Smith K. pneumoniae Not detected Normal NOT DETECTED [facility] Comment on above: Performed By: #### B CID2 ####[facility] Xkrabvtuiq220[address] [place], [place] [address]Dr. Erasmo Smith Klebsiella aerogenes Not detected Normal NOT DETECTED [facility] Comment on above: Performed By: #### B CID2 ####[facility] Gyrjggwwqs[address] [place], [place] [address]Dr. Erasmo Smith KPC Resistant Gene Not detected Normal NOT DETECTED [facility] Comment on above: Performed By: #### B CID2 ####[facility] Yhivekkkft[address] [place] [address]Dr. Erasmo Smith List. monocytogenes Not detected Normal NOT DETECTED [facility] Comment on above: Performed By: #### B CID2 ####[facility] Yezzefmgyi[address] [place], [place] [address]Dr. Erasmo Luis Mcr-1 Resistant Gene Not Applicable Normal NOT DETECTE D [facility] Comment on above: Performed By: #### B CID2 ####[facility] Xfnmytpeul26[address] [place], [place] [address]Dr. Erasmo Smith mecA/C Not Applicable Normal NOT DETECTED [facility] Comment on above: Performed By: #### B CID2 ####[facility] Mpawfgrumj[address] [place], [place] [address]Dr. Erasmo Luis mecA/C MREJ Not Applicable Normal NOT DETECTED [facility] Comment on above: Performed By: #### B CID2 ####[facility] Jjqlyktmzj[address] [place], [place] [address]Dr. Erasmo Luis N. meningitidis Not detected Normal NOT DETECTED [facility] Comment on above: Performed By: #### B CID2 ####[facility] Kdslzgthyq025[address] [place], [place] [address]Dr. Erasmo Luis NDM Resistant Gene Not Applicable Normal NOT DETECTED [facility] Comment on above: Performed By: #### B CID2 ####[facility] Vcezpzoagq[address] [place], [place] [address]Dr. Heavenean Luis Oxa-48-like Not Applicable Normal NOT DETECTED [facility] Comment on above: Performed By: #### B CID2 ####[facility] Wextpyqzoo[address] [place], [place] [address]Dr. Erasmo Smith Proteus Not detected Normal NOT DETECTED [facility] Comment on above: Performed By: #### B CID2 ####[facility] Stfszkvwsl[address] [place], [place] [address]Dr. Erasmo Smith Pseud. aeruginosa Not detected Normal NOT DETECTED [facility] Comment on above: Performed By: #### B CID2 ####[facility] Zvtscgvwvd69[address] [place] [address]Dr. Erasmo Smith S. maltophilia Not detected Normal NOT DETECTED [facility] Comment on above: Performed By: #### B CID2 ####[facility] Sgxspotkhe9[address] [place], [place] [address]Dr. Erasmo Smith Salmonella Not detected Normal NOT DETECTED [facility] Comment on above: Performed By: #### B CID2 ####[facility] Uzyxkulunh[address] [place], [place] [address]Dr. Erasmo Smith Seratia marcescens Not detected Normal NOT DETECTED [facility] Comment on above: Performed By: #### B CID2 ####[facility] Wnohrasqmh6[address] [place], [place] [address]Dr. Erasmo Smith Site: l ac Normal [facility] Comment on above: Performed By: #### B CID2 ####[facility] Zqpiyxutlk[address] [place], [place] [address]Dr. Erasmo Smith Staph. aureus Not detected Normal NOT DETECTED [facility] Comment on above: Performed By: #### B CID2 ####[facility] Lnttncbxlt[address] [place], [place] [address]Dr. Erasmo Smith Staph. epidermidis Not detected Normal NOT DETECTED [facility] Comment on above: Performed By: #### B CID2 ####[facility] Asvyhnxnaf213[address] [place], [place] [address]Dr. Erasmo Smith Staph. lugdunensis Not detected Normal NOT DETECTED [facility] [facility] Comment on above: Performed By: #### B CID2 ####[facility] [address]frw[address] [place], [place] [address]Dr. Erasmo Smith Staphylococcus Not detected Normal NOT DETECTED [facility] Comment on above: Performed By: #### B CID2 ####[facility] [address]qlbvw[address] [place], [place] [address]Dr. Erasmo Smith Strep. agalactiae Not detected Normal NOT DETECTED [facility] Comment on above: Performed By: #### B CID2 ####[facility] Uphjiyjzxw[address] [place], [place] [address]Dr. Erasmo Smith Strep. pneumoniae Not detected Normal NOT DETECTED [facility] Comment on above: Performed By: #### B CID2 ####[facility] [address] [place] [address]Dr. Erasmo Smith Strep. pyogenes Not detected Normal NOT DETECTED [facility] Comment on above: Performed By: #### B CID2 ####[facility] [address]nnwxh[address] [place] [address]Dr. Erasmo Smith Streptococcus Not detected Normal NOT DETECTED [facility] Comment on above: Performed By: #### B CID2 ####[facility] T[address]wit[address] [place] [address]Dr. Erasmo Smith Fran/B Resist. Gene Not detected Normal NOT DETECTED [facility] Comment on above: Performed By: #### B CID2 ####[facility] Czycxdefce[address] [place], [place] [address]Dr. Erasmo Smith VIM Resistant Gene Not Applicable Normal NOT DETECTED [facility] Comment on above: Performed By: #### B CID2 ####[facility] [address]ffze[address] [place], [place] [address]DrMeena Smith BNPon 12-02-2022 Natriuretic peptide B (Bld) [Mass/Vol] 1059.0 pg/mL Normal <=1,800.0 [facility] Comment on above: Performed By: #### B NAVAL ARCHITECT #### [facility] [address] [place] [address] [address] Erasmo Smith CBC AUTO DIFFon 12-02-2022 BASO # 0.0 103/ul Normal 0.0-0.1 [facility] Comment on above: Performed By: #### C BC ####[facility] Rdwixwacif[address] [place], [place] [address]DrMeena Smith Basophils/100 WBC (Bld) 0.2 % Normal 0.2-2.0 [facility] Comment on above: Performed By: #### C BC ####[facility] Imcjxmbeyu[address] [place], [place] [address]DrMeena Smith EO # 0.0 103/ul Normal 0.0-0.7 [facility] Comment on above: Performed By: #### C BC ####[facility] [address]bxunesh[address] [place] [address]Dr. Erasmo Smith Eosinophils/100 WBC (Bld) 0.0 % Critically low 0.9-7.0 [facility] Comment on above: Performed By: #### C BC ####[facility] [address]wguvfq[address] [place], [place] [address]Dr. Erasmo Smith Erythrocyte distribution width (RBC) [Ratio] 17.3 % Critically high 11.0-15.0 [facility] Comment on above: Performed By: #### C BC ####[facility] B[address]uxxsnhn[address] [place], [place] [address]Dr. Erasmo Smith Hematocrit (Bld) [Volume fraction] 31.4 % Critically low 36.0-48.0 [facility] Comment on above: Performed By: #### C BC ####[facility] [address]fswjpb[address] [place], [place] [address]DrMeena Erasmo Smith Hemoglobin (Bld) [Mass/Vol] 10.0 g/dL Critically low 12.0-16.0 [facility] Comment on above: Performed By: #### C BC ####[facility] [address]yrvvxrkw[address] [place], [place] [address]DrMeena Erasmo Smith IG # 0.06 10e3/ul Critically high 0.00-0.03 [facility] Comment on above: Performed By: #### C BC ####[facility] [address]oatwitwi[address] [place], [place] [address]Dr. Erasmo Smith IG % 0.4 % Normal 0.0-0.5 [facility] Comment on above: Performed By: #### C BC ####[facility] [address]hyjgl[address] [place], [place] [address]DrMeena Smith LYMPH # 1.3 103/ul Normal 1.2-3.8 [facility] Comment on above: Performed By: #### C BC ####[facility] F[address]mlyhbcm[address] [place], [place] [address]Dr. Erasmo Luis Lymphocytes/100 WBC (Bld) 8.1 % Critically low 20.5-60.0 [facility] Comment on above: Performed By: #### C BC ####[facility] [address] [place] [address]DrMeena Smith MANUAL DIFF REQ NO Normal [facility] Comment on above: Performed By: #### C BC ####[facility] [address] [place] [id number]. Erasmo Smith MCH (RBC) [Entitic mass] 25.6 pg Critically low 26.7-34.0 [facility] Comment on above: Performed By: #### C BC ####[facility] [address]xlbab[address] [place] [address]Dr. Erasmo Smith MCHC (RBC) [Mass/Vol] 31.8 g/dL Normal 29.9-35.2 [facility] Comment on above: Performed By: #### C BC ####[facility] [address]tjdmvd[address] [place], [place] [address]DrMeena Smith MCV (RBC) [Entitic vol] 80.3 fL Critically low 81.0-99.0 [facility] Comment on above: Performed By: #### C BC ####[facility] [address]pgvjko[address] [place], [place] [address]DrMeena Smith MONO # 0.6 103/ul Normal 0.3-0.8 [facility] Comment on above: Performed By: #### C BC ####[facility] Qnrqmjovba[address] [place], [place] [address]DrMeena Smith Monocytes/100 WBC (Bld) 3.7 % Normal 1.7-12.0 [facility] Comment on above: Performed By: #### C BC ####[facility] [address]obwgkep[address] [place], [place] [address]DrMeena Smith NEUT # 14.5 103/ul Critically high 1.4-6.[address] [facility] Comment on above: Performed By: #### C BC ####[facility] Xx[address]tyjvgg[address] [place], [place] [address]DrMeena Smith Neutrophils/100 WBC (Bld) 87.6 % Critically high 43.0-75.0 [facility] Comment on above: Performed By: #### C BC ####[facility] [address]tdp[address] [place] [address]Dr. Erasmo Smith Platelet mean volume (Bld) [Entitic vol] 10.0 fL Normal 9.5-13.5 [facility] Comment on above: Performed By: #### C BC ####[facility] Irc[address]chrwr37[address] [place], [place] [address]Vu. Erasmo Smith PLT 206 103/ul Normal 150-450 [facility] Comment on above: Performed By: #### C BC ####[facility] [address]aj40[address] [place] [address]Dr. Erasmo Smith RBC 3.91 106/ul Critically low 4.20-5.40 [facility] Comment on above: Performed By: #### C BC ####[facility] [address]zmo[address] [place] [address]Dr. Erasmo Smith WBC 16.5 103/ul Critically high 4.0-11.0 [facility] Comment on above: Performed By: #### C BC ####[facility] [address]nn[address] [place] [address]Dr. Erasmo Smith ECHOCARDIO M/2D COMPLETEon 0 12-02-2022 ECHOCARDIO M/2D COMPLETE Patient: BREANN STARKS Exam Date: 12/02/2022 : 1945 Gender:F Ordering : KAYLEY HOLMAN . Admission #: [id number] Family : DR LUISANA JOHNSON . Order #: [id number] CLICK HERE TO VIEW EXAM ECHOCARDIOGRAM REPORT [...] Salazar M.D. on 12/02/2022 at 21:[address] [facility] MAGNESIUMon 12-02-2022 Magnesium [Mass/Vol] 2.0 mg/dL Normal 1.8-2.4 [facility] Comment on above: Performed By: #### B NAVAL ARCHITECT #### [facility] [address] [place] [address] Dr. Erasmo Smith PROF 14(COMP METB)on 023 Albumin [Mass/Vol] 2.7 g/dL Critically low 3.4-5.0 [facility] Comment on above: Performed By: #### B NAVAL ARCHITECT #### [facility] [address] [place] [address] Dr. Erasmo Smith Albumin/Globulin [Mass ratio] 0.6 {ratio} Normal [facility] Comment on above: Performed By: #### B NAVAL ARCHITECT #### [facility] [address] [place] [address] Dr. Erasmo Smith ALP [Catalytic activity/Vol] 128 U/L Critically high 46-116 [facility] Comment on above: Performed By: #### B NAVAL ARCHITECT #### [facility] [address] [place] [address] Dr. Erasmo Smith ALT [Catalytic activity/Vol] 34 U/L Normal 14-59 [facility] Comment on above: Performed By: #### B NAVAL ARCHITECT #### [facility] [address] [place] [address] Dr. Erasmo Smith Anion gap [Moles/Vol] 10.6 mmol/L Normal [facility] Comment on above: Performed By: #### B NAVAL ARCHITECT #### [facility] [address] [place] [address] Dr. Erasmo Smith AST [Catalytic activity/Vol] 27 U/L Normal 15-37 [facility] Comment on above: Performed By: #### B NAVAL ARCHITECT #### [facility] [address] [place] [address] [address] Erasmo Smith Bilirubin [Mass/Vol] 0.5 mg/dL Normal 0.2-1.0 [facility] Comment on above: Performed By: #### B NAVAL ARCHITECT #### [facility] [address] [place] [address] [address] Erasmo Smith Calcium [Mass/Vol] 8.4 mg/dL Critically low 8.5-10.1 [facility] Comment on above: Performed By: #### B NAVAL ARCHITECT #### [facility] [address] [place] [address] [address] Erasmo Smith Chloride [Moles/Vol] 104 mmol/L Normal 98-107 [facility] Comment on above: Performed By: #### B NAVAL ARCHITECT #### [facility] [address] [place] [address] Dr. Erasmo Smith CO2 [Moles/Vol] 26.2 mmol/L Normal 21.0-32.0 [facility] Comment on above: Performed By: #### B NAVAL ARCHITECT #### [facility] [address] [place] [address] Dr. Erasmo Smith Creatinine [Mass/Vol] 0.52 mg/dL Critically low 0.55-1.02 [facility] Comment on above: Performed By: #### B NAVAL ARCHITECT #### [facility] [address] [place] [address] Dr. Erasmo Smith EGFR-AF GRENADIAN >60 Normal >=[address] [facility] Comment on above: Performed By: #### B NAVAL ARCHITECT #### [facility] [address] [place] [address] Dr. Erasmo Smith EGFR-NON AF GRENADIAN >60 Normal >=60 [facility] Comment on above: Performed By: #### B NAVAL ARCHITECT #### [facility] [address] [place] [address] Dr. Erasmo Smith Globulin (S) [Mass/Vol] 4.3 g/dL Normal [facility] Comment on above: Performed By: #### B NAVAL ARCHITECT #### [facility] [address] [place] [address] [address] Erasmo Smith Glucose [Mass/Vol] 135 mg/dL Critically high 74-106 [facility] Comment on above: Performed By: #### B NAVAL ARCHITECT #### [facility] [address] [place] [address] [address] Erasmo Smith Potassium [Moles/Vol] 3.8 mmol/L Normal 3.5-5.1 [facility] Comment on above: Performed By: #### B NAVAL ARCHITECT #### [facility] [address] [address] [address] Erasmo Smith Protein [Mass/Vol] 7.0 g/dL Normal 6.4-8.2 [facility] Comment on above: Performed By: #### B NAVAL ARCHITECT #### [facility] [address] [address] [address] Erasmo Smith Sodium [Moles/Vol] 137 mmol/L Normal 136-145 [facility] Comment on above: Performed By: #### B NAVAL ARCHITECT #### [facility] [address] [place] [address] [address] Erasmo Smith Urea nitrogen [Mass/Vol] 16.0 mg/dL Normal 7.0-18.0 [facility] Comment on above: Performed By: #### B NAVAL ARCHITECT #### [facility] [address] [place] [address] [address] Erasmo Smith Urea nitrogen/Creatinine [Mass ratio] 30.8 mg/mg Normal [facility] Comment on above: Performed By: #### B NAVAL ARCHITECT #### [facility] [address] [address] [address] Erasmo Smith PROTIMEon 12-02-2022 INR Coag (PPP) [Relative time] 4.39 {INR} Critically high [facility] Comment on above: Performed By: #### P T #### [facility] [address] [address] [address] Erasmo Smith INR GUIDELINES SEE BELOW Normal [facility] Comment on above: Result Comment: ABNER RED INR: 2.0 - 3.0 CONDITIONS NOT LISTED BELOW 2.5 - 3.5 FOR PROSTHETIC HEART VALVE REPLACEMENT 2.5 - 3.5 RECURRENT THROMBOSIS Performed By: #### P T #### [facility] [address] [address] [address] Erasmo Smith PT Coag (PPP) [Time] 42.8 s Critically high 9.0-11.6 [facility] Comment on above: Performed By: #### P T #### [facility] [address] [address] [address] Erasmo Smith UA RANDOM W/MICROSCOPICon BACTERIA NONE SEEN Normal NONE SEEN [facility] Comment on above: Performed By: #### U AMIC ####[facility] [address] [place] [address]Dr. Erasmo Smith Bilirubin Ql (U) Negative Normal NEGATIVE [facility] Comment on above: Performed By: #### U AMIC ####[facility] [address]sc[address] [place] [address]Dr. Erasmo Smith CAST NONE SEEN Normal NONE SEEN [facility] Comment on above: Performed By: #### U AMIC ####[facility] [address] [place] [address]Dr. Erasmo Smith Clarity (U) CLEAR Normal CLEAR [facility] Comment on above: Performed By: #### U AMIC ####[facility] [address] [place] [address]Dr. Erasmo Smith Color (U) YELLOW Normal YELLOW [facility] Comment on above: Performed By: #### U AMIC ####[facility] [address] [place] [address]Dr. Erasmo Smith Crystals LM Nom (Urine sed) NONE SEEN Normal NONE SEEN [facility] Comment on above: Performed By: #### U AMIC ####[facility] Q[address]hvxmr[address] [place] [address]Dr. Erasmo Smith Epithelial cells LM Ql (Urine sed) RARE Normal NONE SEEN /RARE [facility] Comment on above: Performed By: #### U AMIC ####[facility] [address]ut[address] [place], [place] [address]Dr. Erasmo Smith Glucose Ql (U) Negative Normal NEGATIVE [facility] Comment on above: Performed By: #### U AMIC ####[facility] [address]uz[address] [place] [address]Dr. Erasmo Smith Hemoglobin Ql (U) SMALL Abnormal NEGATIVE [facility] Comment on above: Performed By: #### U AMIC ####[facility] [address] [place] [address]Dr. Erasmo Smith Ketones Ql (U) 15 mg/dl Abnormal NEGATIVE [facility] Comment on above: Performed By: #### U AMIC ####[facility] [address]wee[address] [place], [place] [address]Dr. Erasmo Smith LEUKOCYTES Negative Normal NEGATIVE [facility] Comment on above: Performed By: #### U AMIC ####[facility] [address]hstp[address] [place], [place] [address]Dr. Erasmo Smith MUCOUS NONE SEEN Normal NONE SEEN [facility] Comment on above: Performed By: #### U AMIC ####[facility] [address]iaj[address] [place], [place] [address]Dr. Erasmo Smith Nitrite Ql (U) Negative Normal NEGATIVE [facility] Comment on above: Performed By: #### U AMIC ####[facility] [address]em[address]azaw[address] [place], [place] [address]Dr. Erasmo Smith pH (U) 6.0 [pH] Normal 5-9 [facility] Comment on above: Performed By: #### U AMIC ####[facility] [address]feqy[address] [place], [place] [address]Dr. Erasmo Smith RBC 0-2 Normal 0-2 [facility] Comment on above: Performed By: #### U AMIC ####[facility] [address]gztrrbtb[address] [place], [place] [address]Dr. Erasmo Smith SPEC GRAVITY 1.025 Normal 1.005-<=1.02 5 [facility] Comment on above: Performed By: #### U AMIC ####[facility] Mgvnmfvvzz[address] [place], [place] [address]Dr. Erasmo Smith UA PROTEIN TRACE Normal NEGATIVE/ TRACE [facility] Comment on above: Performed By: #### U AMIC ####[facility] T[address]hr[address] [place] [id number]. Erasmo Smith Urobilinogen Qn (U) 4 {Shraddha'U}/dL Abnormal 0.2 - 1.0 [facility] Comment on above: Performed By: #### U AMIC ####[facility] Res[address]qohvi[address] [place] [address]DrMeena Smith WBC 0-2 Abnormal NONE SEEN [facility] Comment on above: Performed By: #### U AMIC ####[facility] [address] [place] [id number]. Erasmo Smith CARDIAC ROSA ELENA 3-6on 3 CK [Catalytic activity/Vol] 53 U/L Normal 26-192 [facility] Comment on above: Performed By: #### C MREP #### [facility] [address] [address] [address] Erasmo Smith CK.MB [Mass/Vol] 0.90 ng/mL Normal <=3.[address] [facility] Comment on above: Performed By: #### C MREP #### [facility] [address] [address] [address] Erasmo Smith HSTROP 116.7 pg/mL Critically high 4.0-51.[address] [facility] Comment on above: Result Comment: CUT- OFF POINTS HAVE BEEN ESTABLISHED BASED ON THE FOURTH UNIVERSAL DEFINITIONS OF MYOCARDIAL INFARCTION. THE UPPER REFERENCE LIMIT (URL) OF TROPONIN, DEFINED THE 99TH PERCENTILE OF cTnI DISTRIBUTION IN A REFERENCE POPULATION, HAS BEEN CONFIRMED THE DECISION THRESHOLD FOR ME DIAGNOSIS. Performed By: #### C MREP #### [facility] [address] [address] [address] Erasmo Smith CK [Catalytic activity/Vol] 47 U/L Normal 26-192 [facility] Comment on above: Performed By: #### B NAVAL ARCHITECT #### [facility] [address] [address] [address] Erasmo Smith CK.MB [Mass/Vol] 1.00 ng/mL Normal <=3.[address] [facility] Comment on above: Performed By: #### B NAVAL ARCHITECT #### [facility] [address] [place] [address] Dr. Erasmo Smith HSTROP 154.3 pg/mL Critically high 4.0-51.[address] [facility] Comment on above: Result Comment: CUT- OFF POINTS HAVE BEEN ESTABLISHED BASED ON THE FOURTH UNIVERSAL DEFINITIONS OF MYOCARDIAL INFARCTION. THE UPPER REFERENCE LIMIT (URL) OF TROPONIN, DEFINED THE 99TH PERCENTILE OF cTnI DISTRIBUTION IN A REFERENCE POPULATION, HAS BEEN CONFIRMED THE DECISION THRESHOLD FOR ME DIAGNOSIS. Performed By: #### B NAVAL ARCHITECT #### [facility] [address] [place] [address] Dr. Erasmo Smith CBC W MANUAL DIFFon 12-02-19 ATYPICAL LYMPH # Normal [facility] Comment on above: Performed By: #### C ANGELA #### [facility] [address] [place] [address] Dr. Erasmo Smith ATYPICAL LYMPH % Normal [facility] Comment on above: Performed By: #### C ALHAJIMAN #### [facility] [address] [place] [address] Dr. Erasmo Smith BAND # 0.6 103/ul Critically high 0.0-0.3 [facility] Comment on above: Performed By: #### C ALHAJIMAN #### [facility] [address] [place] [address] Dr. Erasmo Smith BAND % 3 % Normal 0-5 [facility] Comment on above: Performed By: #### C BCMAN #### [facility] [address] [place] [address] Dr. Erasmo Smith BASOM # 0.00 103/ul Normal 0.00-0.10 [facility] Comment on above: Performed By: #### C ALHAJIMAN #### [facility] [address] [place] [address] Dr. Erasmo Smith BASOM % 0.0 % Critically low 0.2-2.0 [facility] Comment on above: Performed By: #### C ANGELA #### [facility] [address] [place] [address] Dr. Erasmo Smith BLAST # Normal [facility] Comment on above: Performed By: #### C BCBLAISE #### [facility] [address] [address] [address] Erasmo Smith BLAST % Normal [facility] Comment on above: Performed By: #### C BCBLAISE #### [facility] [address] [address] [address] Erasmo Smith CORRECTED WBC Normal 4.0-11.0 [facility] Comment on above: Performed By: #### C BCMAN #### [facility] [address] [address] [address] Erasmo Smith EOS # 0.19 103/ul Normal 0.00-0.70 [facility] Comment on above: Performed By: #### C ANGELA #### [facility] [address] [place] [address] Dr. Erasmo Smith EOS% 1.0 % Normal 0.9-7.0 [facility] Comment on above: Performed By: #### C BCBLAISE #### [facility] [address] [place] [address] Dr. Erasmo Smith HCT 32.7 % Critically low 36.0-48.0 [facility] Comment on above: Performed By: #### C ANGELA #### [facility] [address] [place] [address] Dr. Erasmo Smith HGB 10.5 g/dl Critically low 12.0-16.0 [facility] Comment on above: Performed By: #### C BCBLAISE #### [facility] [address] [place] [address] Dr. Erasmo Smith LYMPHM # 0.76 103/ul Critically low 1.20-3.80 [facility] Comment on above: Performed By: #### C BCMAN #### [facility] [address] [place] [address] Dr. Erasmo Smith LYMPHM% 4.0 % Critically low 20.5-60.0 [facility] Comment on above: Performed By: #### C BCBLAISE #### [facility] [address] [address] [address] Erasmo Smith MCH 25.9 pg Critically low 26.7-34.0 [facility] Comment on above: Performed By: #### C ANGELA #### [facility] [address] [address] [address] Erasmo Smith MCHC 32.1 g/dl Normal 29.9-35.2 [facility] Comment on above: Performed By: #### C BCMAN #### [facility] [address] [address] [address] Erasmo Smith MCV 80.5 fL Critically low 81.0-99.0 [facility] Comment on above: Performed By: #### C BCBLAISE #### [facility] [address] [place] [address] Dr. Erasmo Smith METAMYELOCYTE # Normal [facility] Comment on above: Performed By: #### C ANGELA #### [facility] [address] [place] [address] Dr. Erasmo Smith METAMYELOCYTE % Normal [facility] Comment on above: Performed By: #### C ANGELA #### [facility] [address] [place] [address] Dr. Erasmo Smith MONOM# 1.14 103/ul Critically high 0.30-0.80 [facility] Comment on above: Performed By: #### C ANGELA #### [facility] [address] [place] [address] Dr. Erasmo Smith MONOM% 6.0 % Normal 1.7-12.0 [facility] Comment on above: Performed By: #### C ANGELA #### [facility] [address] [address] [address] Erasmo Smith MPV 9.4 fL Critically low 9.5-13.5 [facility] Comment on above: Performed By: #### C BCBLAISE #### [facility] [address] [place] [address] Dr. Erasmo Smith MYELOCYTE # Normal [facility] Comment on above: Performed By: #### C BCBLAISE #### [facility] [address] [address] [address] Erasmo Smith MYELOCYTE % Normal [facility] Comment on above: Performed By: #### C BCBLAISE #### [facility] [address] [address] [address] Erasmo Smith NRBC Normal [facility] Comment on above: Performed By: #### C ANGELA #### [facility] [address] [address] [address] Erasmo Smith PLT 195 103/ul Normal 150-450 [facility] Comment on above: Performed By: #### C ANGELA #### [facility] [address] [address] [address] Erasmo Smith RBC 4.06 106/ul Critically low 4.20-5.40 [facility] Comment on above: Performed By: #### C ANGELA #### [facility] [address] [address] [address] Erasmo Smith RDW 17.7 % Critically high 11.0-15.0 [facility] Comment on above: Performed By: #### C ANGELA #### [facility] [address] [address] [address] Erasmo Smith SEG # 16.34 103/ul Critically high 1.40-6.50 [facility] Comment on above: Performed By: #### C ANGELA #### [facility] [address] [address] [address] Erasmo Smith SEG % 86.0 % Critically high 43.0-75.0 [facility] Comment on above: Performed By: #### C BCBLAISE #### [facility] [address] [address] [address] Erasmo Smith WBC 19.0 103/ul Critically high 4.0-11.0 [facility] Comment on above: Performed By: #### C BCMAN #### [facility] [address] HEAD WO CONon [...] MCCORMICK Date: 2022 14:50 Normal [facility] CULTURE BLOODon 2022 Microscopic examination of blood, culture Culture Observations: Aerobic and Anaerobic bottle positive. BCID: E. Coli Culture Observations: Refer to for VIOLET. Isolate 1 Escherichia coli Growth of Normal [facility] Comment on above: Performed By: #### B LDCX2 ####[facility] [address] [place], [place] [address]Py. Erasmo Smith Covid-19 PCR (CVDTBH)on 11-11 SARS-CoV-2 (COVID-19) RNA EMILY+probe Ql (Unsp spec) Not detected Normal NOT DETECTED [facility] Comment on above: Result Comment: When diagnostic [...] for this test is supported by the [employer] of Health and Human Service's declaration that [...] Performed By: #### C MREP #### [facility] [address] [place], [place] [address] Dr. Erasmo Smith LACTATE/LACTIC ACIDon 2022 Lactate [Moles/Vol] 1.2 mmol/L Normal 0.4-2.0 [facility] Comment on above: Performed By: #### L ACT ####[facility] [address] [place] [address]Dr. Erasmo Smith PH VENOUS BLOODon 2022 PCO2 VENOUS 37.8 mmHg Critically low 40.0-52.0 [facility] Comment on above: Performed By: #### P HVEN ####[facility] [address] [place] [address]DrMeena Smith pH VENOUS 7.417 Normal 7.330-7.430 [facility] Comment on above: Performed By: #### P HVEN ####[facility] [address] [place] [address]Dr. Erasmo Smith PROF 14(COMP METB)on 023 Albumin [Mass/Vol] 3.1 g/dL Critically low 3.4-5.0 [facility] Comment on above: Performed By: #### H ALEXSANDER, CMP ####[facility] [address] [place] [address]DrMeena Smith Albumin/Globulin [Mass ratio] 0.8 {ratio} Normal [facility] Comment on above: Performed By: #### H ALEXSANDER, CMP ####[facility] [address] [place] [address]DrMeena Smith ALP [Catalytic activity/Vol] 194 U/L Critically high 46-116 [facility] Comment on above: Performed By: #### H ALEXSANDER, CMP ####[facility] [address] [place] [address]DrMeena Smith ALT [Catalytic activity/Vol] 37 U/L Normal 14-59 [facility] Comment on above: Performed By: #### H ALEXSANDER, CMP ####[facility] [address] [place] [address]Dr. Erasmo Smith Anion gap [Moles/Vol] 14.6 mmol/L Normal [facility] Comment on above: Performed By: #### H ALEXSANDER, CMP ####[facility] [address] [place] [address]Dr. Erasmo Smith AST [Catalytic activity/Vol] 32 U/L Normal 15-37 [facility] Comment on above: Performed By: #### H ALEXSANDER, CMP ####[facility] [address] [place] [address]Dr. Erasmo Smith Bilirubin [Mass/Vol] 1.0 mg/dL Normal 0.2-1.0 [facility] Comment on above: Performed By: #### Kymberly BELTRE, CMP ####[facility] [address] [place], [place] [address]Dr. Erasmo Smith Calcium [Mass/Vol] 8.9 mg/dL Normal 8.5-10.1 [facility] Comment on above: Performed By: #### Kymbrely BELTRE, CMP ####[facility] [address] [place], [place] [address]Dr. Erasmo Smith Chloride [Moles/Vol] 103 mmol/L Normal 98-107 [facility] Comment on above: Performed By: #### Kymberly BELTRE, CMP ####[facility] [address] [place], [place] [address]Dr. Erasmo Smith CO2 [Moles/Vol] 23.6 mmol/L Normal 21.0-32.[address] [facility] Comment on above: Performed By: #### Kymberly BELTRE, CMP ####[facility] [address] [place] [address]Dr. Erasmo Smith Creatinine [Mass/Vol] 0.69 mg/dL Normal 0.55-1.02 [facility] Comment on above: Performed By: #### Kymberly BELTRE, CMP ####[facility] [address] [place] [address]Dr. Erasmo Smith EGFR-AF GRENADIAN >60 Normal >=[address] [facility] Comment on above: Performed By: #### Kymberly BELTRE, CMP ####[facility] [address] [place] [id number]. Erasmo Smith EGFR-NON AF GRENADIAN >60 Normal >=60 [facility] Comment on above: Performed By: #### H ALEXSANDER, CMP ####[facility] [address]is[address] [place] [address]Dr. Erasmo Smith Globulin (S) [Mass/Vol] 4.1 g/dL Normal [facility] Comment on above: Performed By: #### H ALEXSANDER, CMP ####[facility] [address] [place] [address]Dr. Erasmo Smith Glucose [Mass/Vol] 121 mg/dL Critically high 74-106 [facility] Comment on above: Performed By: #### H ALEXSANDER, CMP ####[facility] [address] [place] [address]Dr. Erasmo Smith Potassium [Moles/Vol] 3.2 mmol/L Critically low 3.5-5.1 [facility] Comment on above: Performed By: #### H ALEXSANDER, CMP ####[facility] [address] [place] [address]Dr. Erasmo Smith Protein [Mass/Vol] 7.2 g/dL Normal 6.4-8.2 [facility] Comment on above: Performed By: #### H ALEXSANDER, CMP ####[facility] [address] [place] [address]Dr. Erasmo Smith Sodium [Moles/Vol] 138 mmol/L Normal 136-145 [facility] Comment on above: Performed By: #### H ALEXSANDER, CMP ####[facility] [address] [place] [address]Dr. Erasmo Smith Urea nitrogen [Mass/Vol] 17.0 mg/dL Normal 7.0-18.0 [facility] Comment on above: Performed By: #### H ALEXSANDER, CMP ####[facility] [address] [place] [address]Dr. Erasmo Smith Urea nitrogen/Creatinine [Mass ratio] 24.6 mg/mg Normal [facility] Comment on above: Performed By: #### H STROPN, CMP ####[facility] [address] [place] [address]Dr. Erasmo Smith PROTIMEon 2022 INR Coag (PPP) [Relative time] 3.58 {INR} Normal [facility] Comment on above: Performed By: #### P T, PTT #### [facility] [address] [place] [address] [address] Erasmo Smith INR GUIDELINES SEE BELOW Normal [facility] Comment on above: Result Comment: ABNER RED INR: 2.0 - 3.0 CONDITIONS NOT LISTED BELOW 2.5 - 3.5 FOR PROSTHETIC HEART VALVE REPLACEMENT 2.5 - 3.5 RECURRENT THROMBOSIS Performed By: #### P T, PTT #### [facility] [address] [place] [address] [address] Erasmo Smith PT Coag (PPP) [Time] 35.3 s Critically high 9.0-11.6 [facility] Comment on above: Performed By: #### P T, PTT #### [facility] [address] [place] [address] [address] Erasmo Smith PTTon 2022 aPTT Coag (Bld) [Time] 40.3 s Critically high 22.3-36.2 [facility] Comment on above: Performed By: #### P T, PTT #### [facility] [address] [place] [address] Dr. Erasmo Smiht TROPONIN, HIGH SENSITIVITYon 2022 HSTROP 194.7 pg/mL Critically high 4.0-51.[address] [facility] Comment on above: Result Comment: CUT- OFF POINTS HAVE BEEN ESTABLISHED BASED ON THE FOURTH UNIVERSAL DEFINITIONS OF MYOCARDIAL INFARCTION. THE UPPER REFERENCE LIMIT (URL) OF TROPONIN, DEFINED THE 99TH PERCENTILE OF cTnI DISTRIBUTION IN A REFERENCE POPULATION, HAS BEEN CONFIRMED THE DECISION THRESHOLD FOR ME DIAGNOSIS. Performed By: #### C MREP #### [facility] [address] [place] [address] [address] Erasmo Smith HSTROP 218.0 pg/mL Critically high 4.0-51.[address] [facility] Comment on above: Result Comment: CUT- OFF POINTS HAVE BEEN ESTABLISHED BASED ON THE FOURTH UNIVERSAL DEFINITIONS OF MYOCARDIAL INFARCTION. THE UPPER REFERENCE LIMIT (URL) OF TROPONIN, DEFINED THE 99TH PERCENTILE OF cTnI DISTRIBUTION IN A REFERENCE POPULATION, HAS BEEN CONFIRMED THE DECISION THRESHOLD FOR ME DIAGNOSIS. Performed By: #### B NAVAL ARCHITECT #### [facility] [address] [place] [address] [address] Erasmo Smith XR CHEST 1 Von [...] by: HONG ALSTON Date: 2022 14:18 Normal [facility] MAMM SCREEN 3D TOÑITO CADon 11-26-2022 MAMM SCREEN 3D TOÑITO CAD Patient: BREANN STARKS Exam Date: 11/26/2022 : 1945 Gender:F Ordering : DR LUISANA JOHNSON . Admission #: [id number] Family : Order #: [id number] CLICK HERE TO VIEW EXAM RADIOLOGY REPORT [...] No Treatments None Family Cancers None LOCATION: [facility] BREAST COMPOSITION: Heterogeneously dense,which may obscure [...] Brown M.D. on 11/26/2022 at 14:[address] [facility] PROF 14(COMP METB)on 022 Albumin [Mass/Vol] 3.8 g/dL Normal 3.4-5.0 [facility] Comment on above: Performed By: #### C MREP #### [facility] [address] [place] [address] Dr. Erasmo Smith Albumin/Globulin [Mass ratio] 0.8 {ratio} Normal [facility] Comment on above: Performed By: #### C MREP #### [facility] [address] [place] [address] Dr. Erasmo Smith ALP [Catalytic activity/Vol] 102 U/L Normal 46-116 [facility] Comment on above: Performed By: #### C MREP #### [facility] [address] [place] [address] Dr. Erasmo Smith ALT [Catalytic activity/Vol] 47 U/L Normal 14-59 [facility] Comment on above: Performed By: #### C MREP #### [facility] [address] [place] [address] Dr. Erasmo Smith Anion gap [Moles/Vol] 12.5 mmol/L Normal [facility] Comment on above: Performed By: #### C MREP #### [facility] [address] [place] [address] Dr. Erasmo Smith AST [Catalytic activity/Vol] 36 U/L Normal 15-37 [facility] Comment on above: Performed By: #### C MREP #### [facility] [address] [place] [address] Dr. Erasmo Smith Bilirubin [Mass/Vol] 0.3 mg/dL Normal 0.2-1.0 [facility] Comment on above: Performed By: #### C MREP #### [facility] [address] [place] [address] [address] Erasmo Smith Calcium [Mass/Vol] 8.9 mg/dL Normal 8.5-10.1 [facility] Comment on above: Performed By: #### C MREP #### [facility] [address] [place] [address] [address] Erasmo Smith Chloride [Moles/Vol] 106 mmol/L Normal 98-107 [facility] Comment on above: Performed By: #### C MREP #### [facility] [address] [place] [address] Dr. Erasmo Smith CO2 [Moles/Vol] 26.9 mmol/L Normal 21.0-32.[address] [facility] Comment on above: Performed By: #### C MREP #### [facility] [address] [place] [address] Dr. Erasmo Smith Creatinine [Mass/Vol] 0.79 mg/dL Normal 0.55-1.02 [facility] Comment on above: Performed By: #### C MREP #### [facility] [address] [place] [address] Dr. Erasmo Smith EGFR-AF GRENADIAN >60 Normal >=[address] [facility] Comment on above: Performed By: #### C MREP #### [facility] [address] [place] [address] Dr. Erasmo Smith EGFR-NON AF GRENADIAN >60 Normal >=60 [facility] Comment on above: Performed By: #### C MREP #### [facility] [address] [place] [address] [address] Erasmo Smith Globulin (S) [Mass/Vol] 4.6 g/dL Normal [facility] Comment on above: Performed By: #### C MREP #### [facility] [address] [place] [address] Dr. Erasmo Smith Glucose [Mass/Vol] 102 mg/dL Normal 74-106 [facility] Comment on above: Performed By: #### C MREP #### [facility] [address] [place] [address] Dr. Erasmo Smith Potassium [Moles/Vol] 4.4 mmol/L Normal 3.5-5.1 [facility] Comment on above: Performed By: #### C MREP #### [facility] [address] [place] [address] Dr. Erasmo Smith Protein [Mass/Vol] 8.4 g/dL Critically high 6.4-8.2 [facility] Comment on above: Performed By: #### C MREP #### [facility] [address] [place] [address] Dr. Erasmo Smith Sodium [Moles/Vol] 141 mmol/L Normal 136-145 [facility] Comment on above: Performed By: #### C MREP #### [facility] [address] [place] [address] Dr. Erasmo Smith Urea nitrogen [Mass/Vol] 28.0 mg/dL Critically high 7.0-18.0 [facility] Comment on above: Performed By: #### C MREP #### [facility] [address] [place] [address] Dr. Erasmo Smith Urea nitrogen/Creatinine [Mass ratio] 35.4 mg/mg Normal [facility] Comment on above: Performed By: #### C MREP #### [facility] [address] [place] [address] Dr. Erasmo Smith CBC AUTO DIFFon 07-12-2022 BASO # 0.1 103/ul Normal 0.0-0.1 [facility] Comment on above: Performed By: #### B NAVAL ARCHITECT #### [facility] [address] [place] [address] Dr. Erasmo Smith Basophils/100 WBC (Bld) 0.5 % Normal 0.2-2.0 [facility] Comment on above: Performed By: #### B NAVAL ARCHITECT #### [facility] [address] [place] [address] Dr. Erasmo Smith EO # 0.2 103/ul Normal 0.0-0.7 [facility] Comment on above: Performed By: #### B NAVAL ARCHITECT #### [facility] [address] [place] [address] Dr. Erasmo Smith Eosinophils/100 WBC (Bld) 2.5 % Normal 0.9-7.0 [facility] Comment on above: Performed By: #### B NAVAL ARCHITECT #### [facility] [address] [place] [address] Dr. Erasmo Smith Erythrocyte distribution width (RBC) [Ratio] 17.2 % Critically high 11.0-15.0 [facility] Comment on above: Performed By: #### B NAVAL ARCHITECT #### [facility] [address] [place] [address] Dr. Erasmo Smith Hematocrit (Bld) [Volume fraction] 35.0 % Critically low 36.0-48.0 [facility] Comment on above: Performed By: #### B NAVAL ARCHITECT #### [facility] [address] [place] [address] Dr. Erasmo Smith Hemoglobin (Bld) [Mass/Vol] 11.3 g/dL Critically low 12.0-16.0 [facility] Comment on above: Performed By: #### B NAVAL ARCHITECT #### [facility] [address] [place] [address] Dr. Erasmo Smith IG # 0.02 10e3/ul Normal 0.00-0.03 [facility] Comment on above: Performed By: #### B NAVAL ARCHITECT #### [facility] [address] [place] [address] Dr. Erasmo Smith IG % 0.2 % Normal 0.0-0.5 [facility] Comment on above: Performed By: #### B NAVAL ARCHITECT #### [facility] [address] [place] [address] Dr. Erasmo Smith LYMPH # 2.3 103/ul Normal 1.2-3.8 [facility] Comment on above: Performed By: #### B NAVAL ARCHITECT #### [facility] [address] [place] [address] Dr. Erasmo Smith Lymphocytes/100 WBC (Bld) 25.4 % Normal 20.5-60.0 [facility] Comment on above: Performed By: #### B NAVAL ARCHITECT #### [facility] [address] [place] [address] Dr. Erasmo Smith MANUAL DIFF REQ NO Normal [facility] Comment on above: Performed By: #### B NAVAL ARCHITECT #### [facility] [address] [place] [address] Dr. Erasmo Smith MCH (RBC) [Entitic mass] 25.5 pg Critically low 26.7-34.0 [facility] Comment on above: Performed By: #### B NAVAL ARCHITECT #### [facility] [address] [place] [address] Dr. Erasmo Smith MCHC (RBC) [Mass/Vol] 32.3 g/dL Normal 29.9-35.2 [facility] Comment on above: Performed By: #### B NAVAL ARCHITECT #### [facility] [address] [place] [address] Dr. Erasmo Smith MCV (RBC) [Entitic vol] 78.8 fL Critically low 81.0-99.0 [facility] Comment on above: Performed By: #### B NAVAL ARCHITECT #### [facility] [address] [place] [address] Dr. Erasmo Smith MONO # 0.7 103/ul Normal 0.3-0.8 [facility] Comment on above: Performed By: #### B NAVAL ARCHITECT #### [facility] [address] [place] [address] Dr. Erasmo Smith Monocytes/100 WBC (Bld) 7.5 % Normal 1.7-12.0 [facility] Comment on above: Performed By: #### B NAVAL ARCHITECT #### [facility] [address] [place] [address] Dr. Erasmo Smith NEUT # 5.9 103/ul Normal 1.4-6.5 [facility] Comment on above: Performed By: #### B NAVAL ARCHITECT #### [facility] [address] [place] [address] Dr. Erasmo Smith Neutrophils/100 WBC (Bld) 63.9 % Normal 43.0-75.0 [facility] Comment on above: Performed By: #### B NAVAL ARCHITECT #### [facility] [address] [place] [address] Dr. Erasmo Smith Platelet mean volume (Bld) [Entitic vol] 9.0 fL Critically low 9.5-13.5 [facility] Comment on above: Performed By: #### B NAVAL ARCHITECT #### [facility] [address] [place] [address] [address] Erasmo Smith PLT 305 103/ul Normal 150-450 [facility] Comment on above: Performed By: #### B NAVAL ARCHITECT #### [facility] [address] [place] [address] [address] Erasmo Smith RBC 4.44 106/ul Normal 4.20-5.40 [facility] Comment on above: Performed By: #### B NAVAL ARCHITECT #### [facility] [address] [place] [address] [address] Erasmo Smith WBC 9.2 103/ul Normal 4.0-11.0 [facility] Comment on above: Performed By: #### B NAVAL ARCHITECT #### [facility] [address] [place] [address] CHEST WO CONon [...] by: PAULA BROWN Date: 2022-05-27 15:[address] [facility] HEMOGLOBINon 04-20-2022 Hemoglobin (Bld) [Mass/Vol] 10.6 g/dL Critically low 12.0-16.0 [facility] Comment on above: Performed By: #### H GB ####[facility] [address] [place] [address]Dr. Erasmo Smith CULTURE SPUTUMon 04-02-2022 CULTURE SPUTUM Isolate 1 Pseudomonas aeruginosa Light growth of ORGANISM 1 Pseudomonas aeruginosa ANTIBIOTIC M.I.C RX STATUS Piperacillin/Tazobacta m 8 S F Ceftazidime 2 S F Imipenem 1 S F Amikacin <=2 S F Gentamicin <=1 S F Tobramycin <=1 S F Ciprofloxacin <=0.25 S F Levofloxacin 0.[address] [facility] Comment on above: Performed By: #### S PUTCX ####[facility] [address] [place], [place] [address]Dr. Erasmo Smith CYTOLOGYon 03-30-2022 SENT TO REF LAB 03/31/22 Normal [facility] Comment on above: Performed By: #### C YTO #### [facility] [address] [place] [address] Dr. Erasmo Smith SPUTUM GRAM STAINon 03-30-[address] [facility] Comment on above: Performed By: #### B NAVAL ARCHITECT #### [facility] [address] [place] [address] [address] Erasmo Smith DIPHTHEROIDS Normal [facility] Comment on above: Performed By: #### B NAVAL ARCHITECT #### [facility] [address] [place] [address] Dr. Erasmo Smith EPITHELIALS <25 [facility] Comment on above: Performed By: #### B NAVAL ARCHITECT #### [facility] [address] [place] [address] [address] Erasmo Smith FUNGAL ELEMENTS [facility] Comment on above: Performed By: #### B NAVAL ARCHITECT #### [facility] [address] [place] [address] Dr. Erasmo Smith GRAM NEG BACILLI FEW Normal [facility] Comment on above: Performed By: #### B NAVAL ARCHITECT #### [facility] [address] [place] [address] [address] Erasmo Smith GRAM NEG DIPPLOCOCCI Normal [facility] Comment on above: Performed By: #### B NAVAL ARCHITECT #### [facility] [address] [place] [address] [address] Erasmo Smith GRAM POS BACILLI Normal [facility] Comment on above: Performed By: #### B NAVAL ARCHITECT #### [facility] [address] [place] [address] [address] Erasmo Smith GRAM POSITIVE COCCI MANY Normal [facility] Comment on above: Performed By: #### B NAVAL ARCHITECT #### [facility] [address] [place] [address] [address] Erasmo Smith WBC (Bld) [#/Vol] 10*3/uL Normal [facility] Comment on above: Performed By: #### B NAVAL ARCHITECT #### [facility] [address] [place] [address] [address] Erasmo Smith SPUTUM CULTUREon 03-01-2022 Epithelial cells LM Ql (Urine sed) Few Normal [facility] Comment on above: Performed By: #### C XSPTUM ####[facility] [address] [place], [place] [address]DrMeena Smith Gram Stain Evaluation Comment Normal [facility] Comment on above: Result Comment: This specimen is of good quality and is acceptable for routine bacterial culture. Performed By: #### C XSPTUM ####[facility] [address] [place] [address]DrMeena Smith Lower Respiratory Culture Final report Normal [facility] Comment on above: Performed By: #### C XSPTUM ####[facility] [address] [place] [address]DrMeena Smith Result 1 Comment Normal [facility] Comment on above: Result Comment: Few gram positive cocci Performed By: #### C XSPTUM ####[facility] [address] [place] [address]DrMeena Smith Result Comment: Rout ine respiratory adria Result 2 Normal [facility] Comment on above: Performed By: #### C XSPTUM ####[facility] [address] [place] [address]Dr. Erasmo Smith Result 3 Normal [facility] Comment on above: Performed By: #### C XSPTUM ####[facility] [address] [place] [address]Dr. Erasmo Smith Result 4 Normal [facility] Comment on above: Performed By: #### C XSPTUM ####[facility] [address] [place] [address]Dr. Erasmo Smith White Blood Cells Few Normal [facility] Comment on above: Performed By: #### C XSPTUM ####[facility] [address] [place] [address]Dr. Erasmo Smith BNPon 02-24-2022 Natriuretic peptide B (Bld) [Mass/Vol] 319.0 pg/mL Normal <=900.0 [facility] Comment on above: Performed By: #### B NAVAL ARCHITECT #### [facility] [address] [place] [address] Dr. Erasmo Smith CBC AUTO DIFFon 02-24-2022 BASO # 0.1 103/ul Normal 0.0-0.1 [facility] Comment on above: Performed By: #### C MREP #### [facility] [address] [place] [address] Dr. Erasmo Smith Basophils/100 WBC (Bld) 0.5 % Normal 0.2-2.0 [facility] Comment on above: Performed By: #### C MREP #### [facility] [address] [place] [address] [address] Erasmo Smith EO # 0.3 103/ul Normal 0.0-0.7 [facility] Comment on above: Performed By: #### C MREP #### [facility] [address] [place] [address] Dr. Erasmo Smith Eosinophils/100 WBC (Bld) 3.1 % Normal 0.9-7.0 [facility] Comment on above: Performed By: #### C MREP #### [facility] [address] [place] [address] Dr. Erasmo Smith Erythrocyte distribution width (RBC) [Ratio] 15.1 % Critically high 11.0-15.0 [facility] Comment on above: Performed By: #### C MREP #### [facility] [address] [place] [address] Dr. Erasmo Smith Hematocrit (Bld) [Volume fraction] 33.9 % Critically low 36.0-48.0 [facility] Comment on above: Performed By: #### C MREP #### [facility] [address] [place] [address] Dr. Erasmo Smith Hemoglobin (Bld) [Mass/Vol] 10.7 g/dL Critically low 12.0-16.0 [facility] Comment on above: Performed By: #### C MREP #### [facility] [address] [place] [address] Dr. Erasmo Smith IG # 0.03 10e3/ul Normal 0.00-0.03 [facility] Comment on above: Performed By: #### C MREP #### [facility] [address] [place] [address] Dr. Erasmo Smith IG % 0.3 % Normal 0.0-0.5 [facility] Comment on above: Performed By: #### C MREP #### [facility] [address] [place] [address] Dr. Erasmo Smith LYMPH # 2.8 103/ul Normal 1.2-3.8 [facility] Comment on above: Performed By: #### C MREP #### [facility] [address] [place] [address] Dr. Erasmo Smith Lymphocytes/100 WBC (Bld) 30.6 % Normal 20.5-60.0 [facility] Comment on above: Performed By: #### C MREP #### [facility] [address] [place] [address] Dr. Erasmo Smith MANUAL DIFF REQ NO Normal [facility] Comment on above: Performed By: #### C MREP #### [facility] [address] [place] [address] Dr. Erasmo Smith MCH (RBC) [Entitic mass] 26.9 pg Normal 26.7-34.0 [facility] Comment on above: Performed By: #### C MREP #### [facility] [address] [place] [address] Dr. Erasmo Simth MCHC (RBC) [Mass/Vol] 31.6 g/dL Normal 29.9-35.2 [facility] Comment on above: Performed By: #### C MREP #### [facility] [address] [place] [address] [address] Erasmo Smith MCV (RBC) [Entitic vol] 85.2 fL Normal 81.0-99.0 [facility] Comment on above: Performed By: #### C MREP #### [facility] [address] [place] [address] Dr. Erasmo Smith MONO # 0.7 103/ul Normal 0.3-0.8 [facility] Comment on above: Performed By: #### C MREP #### [facility] [address] [place] [address] Dr. Erasmo Smith Monocytes/100 WBC (Bld) 7.9 % Normal 1.7-12.0 [facility] Comment on above: Performed By: #### C MREP #### [facility] [address] [place] [address] Dr. Erasmo Smith NEUT # 5.3 103/ul Normal 1.4-6.5 [facility] Comment on above: Performed By: #### C MREP #### [facility] [address] [place] [address] Dr. Erasmo Smith Neutrophils/100 WBC (Bld) 57.6 % Normal 43.0-75.0 [facility] Comment on above: Performed By: #### C MREP #### [facility] [address] [place] [address] Dr. Erasmo Smith Platelet mean volume (Bld) [Entitic vol] 9.0 fL Critically low 9.5-13.5 [facility] Comment on above: Performed By: #### C MREP #### [facility] [address] [place], [place] [address] Dr. Erasmo Smith PLT 249 103/ul Normal 150-450 [facility] Comment on above: Performed By: #### C MREP #### [facility] [address] [place] [address] [address] Erasmo Smith RBC 3.98 106/ul Critically low 4.20-5.40 [facility] Comment on above: Performed By: #### C MREP #### [facility] [id number] Erasmo Smith WBC 9.1 103/ul Normal 4.0-11.0 [facility] Comment on above: Performed By: #### C MREP #### [facility] [address] [address] [address] Erasmo Smith CTA CHEST WO W [...] PAULA BROWN Date: 2022-02-24 18:24 Normal [facility] D-DIMERon 02-24-2022 D-DIMER 1.36 mg/L FEU Critically high <=0.59 The [facility] Comment on above: Performed By: #### D DIM #### [facility] [address] [place] [address] Dr. Erasmo Smith D-DIMER COMMENTS SEE BELOW Normal The [facility] Comment on above: Result Comment: Incr [...] Performed By: #### D DIM #### [facility] [address] [place] [address] Dr. Erasmo Smith PROF 14(COMP METB)on 022 Albumin [Mass/Vol] 3.6 g/dL Normal 3.4-5.0 [facility] Comment on above: Performed By: #### C MREP #### [facility] [address] [place] [address] Dr. Erasmo Smith Albumin/Globulin [Mass ratio] 0.8 {ratio} Normal [facility] Comment on above: Performed By: #### C MREP #### [facility] [address] [place] [address] Dr. Erasmo Smith ALP [Catalytic activity/Vol] 95 U/L Normal 46-116 [facility] Comment on above: Performed By: #### C MREP #### [facility] [address] [place] [address] Dr. Erasmo Smith ALT [Catalytic activity/Vol] 45 U/L Normal 14-59 [facility] Comment on above: Performed By: #### C MREP #### [facility] [address] [place], [place] [id number] Dr. Erasmo Smith Anion gap [Moles/Vol] 15.9 mmol/L Normal Th [facility] Comment on above: Performed By: #### C MREP #### [facility] [address] [place] [address] Dr. Erasmo Smith AST [Catalytic activity/Vol] 33 U/L Normal 15-37 [facility] Comment on above: Performed By: #### C MREP #### [facility] [address] [place] [address] Dr. Erasmo Smith Bilirubin [Mass/Vol] 0.5 mg/dL Normal 0.2-1.0 [facility] Comment on above: Performed By: #### C MREP #### [facility] [address] [place] [address] Dr. Erasmo Smith Calcium [Mass/Vol] 9.1 mg/dL Normal 8.5-10.1 [facility] Comment on above: Performed By: #### C MREP #### [facility] [address] [place] [address] Dr. Erasmo Smith Chloride [Moles/Vol] 103 mmol/L Normal 98-107 [facility] Comment on above: Performed By: #### C MREP #### [facility] [address] [place] [address] Dr. Erasmo Smith CO2 [Moles/Vol] 25.1 mmol/L Normal 21.0-32.0 [facility] Comment on above: Performed By: #### C MREP #### [facility] [address] [place] [address] Dr. Erasmo Smith Creatinine [Mass/Vol] 0.77 mg/dL Normal 0.55-1.02 [facility] Comment on above: Performed By: #### C MREP #### [facility] [address] [place] [address] Dr. Erasmo Smith EGFR-AF GRENADIAN >60 Normal >=[address] [facility] Comment on above: Performed By: #### C MREP #### [facility] [address] [place] [address] Dr. Erasmo Smith EGFR-NON AF GRENADIAN >60 Normal >=60 [facility] Comment on above: Performed By: #### C MREP #### [facility] [address] [place] [address] Dr. Erasmo Smith Globulin (S) [Mass/Vol] 4.3 g/dL Normal [facility] Comment on above: Performed By: #### C MREP #### [facility] [address] [place] [address] Dr. Erasmo Smith Glucose [Mass/Vol] 92 mg/dL Normal 74-106 [facility] Comment on above: Performed By: #### C MREP #### [facility] [address] [place] [address] Dr. Erasmo Smith Potassium [Moles/Vol] 4.0 mmol/L Normal 3.5-5.1 [facility] Comment on above: Performed By: #### C MREP #### [facility] [address] [place] [address] Dr. Erasmo Smith Protein [Mass/Vol] 7.9 g/dL Normal 6.4-8.2 [facility] Comment on above: Performed By: #### C MREP #### [facility] [address] [place] [address] Dr. Erasmo Smith Sodium [Moles/Vol] 140 mmol/L Normal 136-145 [facility] Comment on above: Performed By: #### C MREP #### [facility] [address] [place] [address] Dr. Erasmo Smith Urea nitrogen [Mass/Vol] 17.0 mg/dL Normal 7.0-18.0 [facility] Comment on above: Performed By: #### C MREP #### [facility] [address] [place] [address] Dr. Erasmo Smith Urea nitrogen/Creatinine [Mass ratio] 22.1 mg/mg Normal [facility] Comment on above: Performed By: #### C MREP #### [facility] [address] [place] [address] Dr. Erasmo Smith PROTIMEon 02-24-2022 INR Coag (PPP) [Relative time] 2.28 {INR} Normal [facility] Comment on above: Performed By: #### P T, PTT ####[facility] [id number] [id number] Smith INR GUIDELINES SEE BELOW Normal [facility] Comment on above: Result Comment: ABNER RED INR: 2.0 - 3.0 CONDITIONS NOT LISTED BELOW 2.5 - 3.5 FOR PROSTHETIC HEART VALVE REPLACEMENT 2.5 - 3.5 RECURRENT THROMBOSIS Performed By: #### P T, PTT ####[facility] [id number] [id number] Smith PT Coag (PPP) [Time] 23.3 s Critically high 9.0-11.6 [facility] Comment on above: Performed By: #### P T, PTT ####[facility] [id number] [id number]. Erasmo Smith PTTon 02-24-2022 aPTT Coag (Bld) [Time] 34.7 s Normal 22.3-36.2 [facility] Comment on above: Performed By: #### P T, PTT ####[facility] [id number] [id number] Smith TROPONIN, HIGH SENSITIVITYon 02-24-2022 HSTROP 6.6 pg/mL Normal 4.0-51.3 [facility] Comment on above: Result Comment: CUT- OFF POINTS HAVE BEEN ESTABLISHED BASED ON THE FOURTH UNIVERSAL DEFINITIONS OF MYOCARDIAL INFARCTION. THE UPPER REFERENCE LIMIT (URL) OF TROPONIN, DEFINED THE 99TH PERCENTILE OF cTnI DISTRIBUTION IN A REFERENCE POPULATION, HAS BEEN CONFIRMED THE DECISION THRESHOLD FOR ME DIAGNOSIS. Performed By: #### C MREP #### [facility] [address] [place], [place] [address] Dr. Erasmo Smith PROTHROMBIN TIMEon 2 INR Coag (PPP) [Relative time] 1.2 {INR} High 0.86-1.16 [facility] Comment on above: Result Comment: INR Theraputic Range: 2.0-3.5 Performed at [facility] [address] [address] [facility] [id number] PT Coag (PPP) [Time] 12.7 s Normal 9.3-12.7 [facility] ANTICOAGULANT COUMADIN Normal [facility] Vital Signs Date Time Vital Sign Value Performing Clinician Sophie echols 05-03-2025 13:49-0400 Body height 149.86 cm Renny Tyrone ARMENTA Work Phone: [facility] 05-03-2025 13:49-0400 Body mass index (BMI) [Ratio] 45 kg/m2 Renny Hansen GEOVANY Work Phone: [facility] 05-03-2025 13:49-0400 Body temperature 97.8 [degF] Renny Hansen GEOVANY Work Phone: [facility] 05-03-2025 13:49-0400 Body weight 101.15 kg Renny Hansen GEOVANY Work Phone: [facility] 05-03-2025 13:49-0400 Diastolic blood pressure 73 mm[Hg] Rennymaite Hansen II Work Phone: [facility] 05-03-2025 13:49-0400 Heart rate 59 /min Renny Hansen GEOVANY Work Phone: [facility] 05-03-2025 13:49-0400 Respiratory rate 16 /min Renny Hansen II Work Phone: [facility] 05-03-2025 13:49-0400 SaO2% (BldA) [Mass fraction] 98 % Renny Hansen GEOVANY Work Phone: [facility] 05-03-2025 13:49-0400 Systolic blood pressure 134 mm[Hg] Renny Hansen II Work Phone: [facility] 04-24-2025 09:41-0400 Body height 144.8 cm Shannon Russo [employer] Work Phone: [facility] 04-24-2025 09:41-0400 Body mass index (BMI) [Ratio] 48.91 kg/m2 Shannon Russo [employer] Work Phone: [facility] 04-24-2025 09:41-0400 Body weight 102.51 kg Shannon Russo [employer] Work Phone: [facility] 04-24-2025 09:41-0400 Diastolic blood pressure 68 mm[Hg] Shannon Russo [employer] Work Phone: [facility] 04-24-2025 09:41-0400 Heart rate 81 /min Shannon Russo [employer] Work Phone: [facility] 04-24-2025 09:41-0400 Respiratory rate 17 /min Shannon Russo [employer] Work Phone: [facility] 04-24-2025 09:41-0400 SaO2% (BldA) [Mass fraction] 97 % Shannon Russo [employer] Work Phone: [facility] 04-24-2025 09:41-0400 Systolic blood pressure 138 mm[Hg] Shannon Russo [employer] Work Phone: [facility] 04-18-2025 11:04-0400 Body height 175.3 cm Eleanor Hemmer PA Work Phone: [facility] 04-18-2025 11:04-0400 Body mass index (BMI) [Ratio] 33.34 kg/m2 Eleanor Hemmer PA Work Phone: [facility] 04-18-2025 11:04-0400 Body weight 102.42 kg Eleanor Hemmer PA Work Phone: [facility] 04-18-2025 11:04-0400 Diastolic blood pressure 68 mm[Hg] Eleanor Hemmer PA Work Phone: [facility] 04-18-2025 11:04-0400 Heart rate 71 /min Eleanor Hemmer PA Work Phone: [facility] 04-18-2025 11:04-0400 Respiratory rate 16 /min Eleanor Hemmer PA Work Phone: [facility] 04-18-2025 11:04-0400 SaO2% (BldA) [Mass fraction] 96 % Eleanor Hemmer PA Work Phone: [facility] 04-18-2025 11:04-0400 Systolic blood pressure 122 mm[Hg] Eleanor SANTOS Work Phone: [facility] 02-18-2025 11:38-0400 Body height 149.9 cm Renny Hansen MD Work Phone: [facility] 02-18-2025 11:38-0400 Body mass index (BMI) [Ratio] 45.04 kg/m2 Renny Hansen MD Work Phone: [facility] 02-18-2025 11:38-0400 Body weight 101.15 kg Renny Hansen MD Work Phone: [facility] 02-18-2025 11:38-0400 Diastolic blood pressure 72 mm[Hg] Renny Hansen MD Work Phone: [facility] 02-18-2025 11:38-0400 Heart rate 61 /min Renny Hansen MD Work Phone: [facility] 02-18-2025 11:38-0400 Respiratory rate 16 /min Renny Hansen MD Work Phone: [facility] 02-18-2025 11:38-0400 SaO2% (BldA) [Mass fraction] 96 % Renny Hansen MD Work Phone: [facility] 02-18-2025 11:38-0400 Systolic blood pressure 128 mm[Hg] Renny Hansen MD Work Phone: [facility] 12-17-2024 10:58-0400 Body height 149.9 cm Renny Hansen MD Work Phone: [facility] 12-17-2024 10:58-0400 Body mass index (BMI) [Ratio] 44.84 kg/m2 Renny Hansen MD Work Phone: [facility] 12-17-2024 10:58-0400 Body weight 100.7 kg Renny Hansen MD Work Phone: [facility] 12-17-2024 10:58-0400 Diastolic blood pressure 68 mm[Hg] Renny Hansen MD Work Phone: [facility] 04-07-2025 10:58-0400 Heart rate 75 /min Renny Hansen MD Work Phone: [facility] 12-17-2024 10:58-0400 SaO2% (BldA) [Mass fraction] 95 % Renny Hansen MD Work Phone: [facility] 12-17-2024 10:58-0400 Systolic blood pressure 130 mm[Hg] Renny Hansen MD Work Phone: [facility] 10-29-2024 14:47-0500 Body weight 98.42 kg Renny Hansen II Work Phone: [facility] 10-29-2024 14:47-0500 Diastolic blood pressure 65 mm[Hg] Renny Hansen II Work Phone: [facility] 10-29-2024 14:47-0500 Heart rate 66 /min Renny Hansen II Work Phone: [facility] 10-29-2024 14:47-0500 Respiratory rate 20 /min Renny Hansen II Work Phone: [facility] 10-29-2024 14:47-0500 SaO2% (BldA) [Mass fraction] 97 % Renny Hansen II Work Phone: [facility] 10-29-2024 14:47-0500 Systolic blood pressure 150 mm[Hg] Renny Hansen II Work Phone: [facility] 10-17-2024 11:35-0500 Body height 149.9 cm Renny Hansen MD Work Phone: [facility] 10-17-2024 11:35-0500 Body mass index (BMI) [Ratio] 44.23 kg/m2 Renny Hansen MD Work Phone: [facility] 10-17-2024 11:35-0500 Body weight 99.34 kg Renny Hansen MD Work Phone: [facility] 10-17-2024 11:35-0500 Diastolic blood pressure 76 mm[Hg] Renny Hansen MD Work Phone: [facility] 10-17-2024 11:35-0500 Heart rate 61 /min Renny Hansen MD Work Phone: [facility] 10-17-2024 11:35-0500 SaO2% (BldA) [Mass fraction] 97 % Renny Hansen MD Work Phone: [facility] 10-17-2024 11:35-0500 Systolic blood pressure 138 mm[Hg] Renny Hansen MD Work Phone: [facility] 10-04-2024 14:56-0500 Body height 149.9 cm Dmitriy Isidrafay DO Work Phone: [facility] 10-04-2024 14:56-0500 Body mass index (BMI) [Ratio] 45.04 kg/m2 Dmitriy Laffay DO Work Phone: [facility] 10-04-2024 14:56-0500 Body weight 101.15 kg Dmitriy Laffay DO Work Phone: [facility] 10-04-2024 14:56-0500 Diastolic blood pressure 70 mm[Hg] Dmitriy Laffay DO Work Phone: [facility] 10-04-2024 14:56-0500 Systolic blood pressure 120 mm[Hg] Dmitriy Laffay DO Work Phone: [facility] 09-25-2024 11:13-0500 Body height 149.86 cm Renny Hansen II Work Phone: [facility] 09-25-2024 11:13-0500 Body mass index (BMI) [Ratio] 44.6 kg/m2 Renny Hansen II Work Phone: [facility] 09-25-2024 11:13-0500 Body temperature 97.3 [degF] Renny Hansen II Work Phone: [facility] 09-25-2024 11:13-0500 Body weight 100.24 kg Renny Hansen II Work Phone: [facility] 09-25-2024 11:13-0500 Diastolic blood pressure 69 mm[Hg] Renny Hansen II Work Phone: [facility] 09-25-2024 11:13-0500 Heart rate 72 /min Renny Hansen II Work Phone: [facility] 09-25-2024 11:13-0500 Respiratory rate 16 /min Renny Hansen II Work Phone: [facility] 09-25-2024 11:13-0500 SaO2% (BldA) [Mass fraction] 98 % Renny Hansen II Work Phone: [facility] 09-25-2024 11:13-0500 Systolic blood pressure 173 mm[Hg] Renny Hansen II Work Phone: [facility] 09-19-2024 15:12-0500 Body height 149.9 cm Luisana Leal [employer] Work Phone: [facility] 09-19-2024 15:12-0500 Body mass index (BMI) [Ratio] 44.07 kg/m2 Luisana Leal [employer] Work Phone: [facility] 09-19-2024 15:12-0500 Body weight 98.97 kg Luisana Leal [employer] Work Phone: [facility] 09-19-2024 15:12-0500 Diastolic blood pressure 68 mm[Hg] Luisana Leal [employer] Work Phone: [facility] 09-19-2024 15:12-0500 Heart rate 63 /min Luisana Leal [employer] Work Phone: [facility] 09-19-2024 15:12-0500 Respiratory rate 18 /min Luisana Leal [employer] Work Phone: [facility] 09-19-2024 15:12-0500 SaO2% (BldA) [Mass fraction] 95 % Luisana Leal [employer] Work Phone: [facility] 09-19-2024 15:12-0500 Systolic blood pressure 128 mm[Hg] Luisana eLal [employer] Work Phone: [facility] 09-18-2024 10:09-0500 Body mass index (BMI) [Ratio] 43.83 kg/m2 Salome Cid DO Work Phone: [facility] 09-18-2024 10:09-0500 Body weight 98.43 kg Christopher Jose Roberto DO Work Phone: [facility] 09-18-2024 10:09-0500 Diastolic blood pressure 86 mm[Hg] Christopher Jose Roberto DO Work Phone: [facility] 09-18-2024 10:09-0500 Heart rate 66 /min Christopher Jose Roberto DO Work Phone: [facility] 09-18-2024 10:09-0500 SaO2% (BldA) [Mass fraction] 91 % Christopher Jose Roberto DO Work Phone: [facility] 09-18-2024 10:09-0500 Systolic blood pressure 136 mm[Hg] Christopher Jose Roberto DO Work Phone: [facility] 09-10-2024 13:00-0500 Body temperature 97.2 [degF] Renny Hansen II Work Phone: [facility] 09-10-2024 13:00-0500 Diastolic blood pressure 67 mm[Hg] Renny Hansen II Work Phone: [facility] 09-10-2024 13:00-0500 Heart rate 72 /min Renny Hansen II Work Phone: [facility] 09-10-2024 13:00-0500 Respiratory rate 19 /min Renny Hansen II Work Phone: [facility] 09-10-2024 13:00-0500 SaO2% (BldA) [Mass fraction] 96 % Renny Hansen II Work Phone: [facility] 09-10-2024 13:00-0500 Systolic blood pressure 157 mm[Hg] Renny Hansen II Work Phone: [facility] 08-24-2024 13:00-0500 Body height 149.86 cm Renny Hansen II Work Phone: [facility] 08-24-2024 13:00-0500 Body mass index (BMI) [Ratio] 45.4 kg/m2 Renny Hansen II Work Phone: [facility] 08-24-2024 13:00-0500 Body temperature 97.8 [degF] Renny Hansen II Work Phone: [facility] 08-24-2024 13:00-0500 Body weight 102.05 kg Renny Hansen II Work Phone: [facility] 08-24-2024 13:00-0500 Diastolic blood pressure 69 mm[Hg] Renny Hansen II Work Phone: [facility] 08-24-2024 13:00-0500 Heart rate 61 /min Renny Hansen II Work Phone: [facility] 08-24-2024 13:00-0500 Respiratory rate 16 /min Renny Hansen II Work Phone: [facility] 08-24-2024 13:00-0500 SaO2% (BldA) [Mass fraction] 98 % Renny Hansen II Work Phone: [facility] 08-24-2024 13:00-0500 Systolic blood pressure 137 mm[Hg] Renny Hansen II Work Phone: [facility] 08-16-2024 10:33-0500 Body height 149.9 cm Renny Hansen MD Work Phone: [facility] 08-16-2024 10:33-0500 Body mass index (BMI) [Ratio] 44.23 kg/m2 Renny Hansen MD Work Phone: [facility] 08-16-2024 10:33-0500 Body weight 99.34 kg Renny Hansen MD Work Phone: [facility] 08-16-2024 10:33-0500 Diastolic blood pressure 80 mm[Hg] Renny Hansen MD Work Phone: [facility] 08-16-2024 10:33-0500 Heart rate 66 /min Renny Hansen MD Work Phone: [facility] 08-16-2024 10:33-0500 SaO2% (BldA) [Mass fraction] 95 % Renny Hansen MD Work Phone: [facility] 08-16-2024 10:33-0500 Systolic blood pressure 132 mm[Hg] Renny Hansen MD Work Phone: [facility] 08-02-2024 10:51-0500 Body height 149.9 cm Renny Hansen MD Work Phone: [facility] 08-02-2024 10:51-0500 Body mass index (BMI) [Ratio] 44.84 kg/m2 Renny Hansen MD Work Phone: [facility] 08-02-2024 10:51-0500 Body temperature 98.4 [degF] Renny Hansen MD Work Phone: [facility] 08-02-2024 10:51-0500 Body weight 100.7 kg Renny Hansen MD Work Phone: [facility] 08-02-2024 10:51-0500 Diastolic blood pressure 72 mm[Hg] Renny Hansen MD Work Phone: [facility] 08-02-2024 10:51-0500 Heart rate 60 /min Renny Hansen MD Work Phone: [facility] 08-02-2024 10:51-0500 SaO2% (BldA) [Mass fraction] 95 % Renny Hansen MD Work Phone: [facility] 08-02-2024 10:51-0500 Systolic blood pressure 134 mm[Hg] Renny Hansen MD Work Phone: [facility] 07-24-2024 10:48-0500 Body height 149.9 cm Eleanor SANTOS Work Phone: [facility] 07-24-2024 10:48-0500 Body mass index (BMI) [Ratio] 45.85 kg/m2 Eleanor SANTOS Work Phone: [facility] 07-24-2024 10:48-0500 Body weight 102.97 kg Eleanor Estevezmer PA Work Phone: [facility] 07-24-2024 10:48-0500 Diastolic blood pressure 68 mm[Hg] Eleanor Estevezmer PA Work Phone: [facility] 07-24-2024 10:48-0500 Heart rate 60 /min Eleanor Estevezmer PA Work Phone: [facility] 07-24-2024 10:48-0500 SaO2% (BldA) [Mass fraction] 96 % Eleanor Estevezmer PA Work Phone: [facility] 07-24-2024 10:48-0500 Systolic blood pressure 124 mm[Hg] Eleanor Estevezmer PA Work Phone: [facility] 07-05-2024 08:50-0400 Body height 149.9 cm Renny Hansen MD Work Phone: [facility] 07-05-2024 08:50-0400 Body mass index (BMI) [Ratio] 46.66 kg/m2 Renny Hansen MD Work Phone: [facility] 07-05-2024 08:50-0400 Body weight 104.78 kg Renny Hansen MD Work Phone: [facility] 07-05-2024 08:50-0400 Diastolic blood pressure 74 mm[Hg] Renny Hansen MD Work Phone: [facility] 07-05-2024 08:50-0400 Heart rate 69 /min Renny Hansen MD Work Phone: [facility] 07-05-2024 08:50-0400 SaO2% (BldA) [Mass fraction] 96 % Renny Hansen MD Work Phone: [facility] 07-05-2024 08:50-0400 Systolic blood pressure 130 mm[Hg] Renny Hansen MD Work Phone: [facility] 05-31-2024 13:46-0400 Body height 149.9 cm Monster Calvillo NP Work Phone: [facility] 05-31-2024 13:46-0400 Body mass index (BMI) [Ratio] 47.87 kg/m2 Monster Kilpatrickpatrick [employer] Work Phone: [facility] 05-31-2024 13:46-0400 Body temperature 98.4 [degF] Monster Kilpatrickpatrick [employer] Work Phone: [facility] 05-31-2024 13:46-0400 Body weight 107.5 kg Monster Kilpatrickpatrick [employer] Work Phone: [facility] 05-31-2024 13:46-0400 Diastolic blood pressure 80 mm[Hg] Monster Calvillo [employer] Work Phone: [facility] 05-31-2024 13:46-0400 Heart rate 73 /min Monster Kilpatrickpatrick [employer] Work Phone: [facility] 05-31-2024 13:46-0400 SaO2% (BldA) [Mass fraction] 95 % Monster Rashidzpatrick [employer] Work Phone: [facility] 05-31-2024 13:46-0400 Systolic blood pressure 140 mm[Hg] Monster Calvillo [employer] Work Phone: [facility] 05-22-2024 13:17-0400 Body height 149.9 cm Boo Sherwin PA-C Work Phone: [facility] 05-22-2024 13:17-0400 Body mass index (BMI) [Ratio] 44.43 kg/m2 Boo Sherwin PA-C Work Phone: [facility] [facility] 05-22-2024 13:17-0400 Body weight 99.79 kg Boo Sherwin PA-C Work Phone: [facility] 03-02-2024 11:51-0400 Blood Pressure Location Jair ALEXANDER [facility] [place] 03-02-2024 11:51-0400 Diastolic blood pressure 75 mm[Hg] Jair NILL [facility] Surgery [place] 03-02-2024 11:51-0400 Heart rate 71 /min Jair PARKL [facility] Surgery [place] 03-02-2024 11:51-0400 Respiratory rate 16 /min Jair PARKL [facility] Surgery [place] 03-02-2024 11:51-0400 Systolic blood pressure 118 mm[Hg] Jair NILL [facility] [place] 10-07-2021 16:00-0500 Body height 146.69 cm Hong Nevarez Other [employer] [facility] Other 10-07-2021 16:00-0500 Body mass index (BMI) [Ratio] 51.01 kg/m2 Hong Nevarez Other [facility] Other 10-07-2021 16:00-0500 Body weight 109.77 kg Hong Nevarez Other [facility] Other 08-26-2021 15:15-0500 Body height 146.69 cm Hong Nevarez Other [facility] Other 08-26-2021 15:15-0500 Body mass index (BMI) [Ratio] 51.07 kg/m2 Hong Neavrez Other [facility] Other 08-26-2021 15:15-0500 Body weight 109.91 kg Hong Nevarez Other [facility] Other Encounters Encounter Date Encounter Type Care Provider Facility Start: 05-16-2025 End: 05-16-2025 Cristobal Hansen MD Work Phone: [facility] Start: 05-16-2025 End: 05-16-2025 Bamboo flowsheet Renny Hansen MD Work Phone: [facility] Start: 05-16-2025 ambulatory Renny Hansen Facility:[facility] Start: 05-16-2025 End: 05-16-2025 ambulatory RENNY HANSEN Not Available Start: 05-15-2025 End: 05-15-2025 ambulatory JAIR FLORIAN [facility] Start: 05-03-2025 Registered Recurring Katharina López QUALITY IMPROVEMENT COORDINATOR (RN) -[facility] Acute Work Phone: Start: 05-03-2025 End: 05-03-2025 ambulatory Renny Hansen II Work Phone: [facility] Work Phone: Start: 05-03-2025 End: 05-03-2025 Patient encounter procedure Emma Spears NAVAL ARCHITECT-C -[facility] Ambulatory Work Phone: Start: 04-24-2025 End: 04-24-2025 Bamboo flowsheet Shannon Russo NAVAL ARCHITECT Work Phone: [facility] Start: 04-24-2025 End: 04-25-2025 Bamboo flowsheet Shannon Russo NAVAL ARCHITECT Work Phone: [facility] Start: 04-24-2025 End: 04-24-2025 Clinisync Result Encounter Generic External Data Provider [facility] External Department Unsolicited Start: 04-24-2025 End: 04-25-2025 External Result Encounter hSannon Russo NAVAL ARCHITECT Work Phone: [facility] External Department Unsolicited Start: 04-24-2025 End: 04-24-2025 Office outpatient visit 25 minutes Shannon Russo NAVAL ARCHITECT Work Phone: [facility] Comment on above: Hematuria, unspecifi ed type Start: 04-24-2025 End: 04-24-2025 ambulatory SHANNON RUSSO Not Available Start: 04-22-2025 End: 04-22-2025 ambulatory Miguel Murphy MD Facility:[facility] Start: 04-18-2025 End: 04-18-2025 Bamboo flowsheet Eleanor [...] ELEANOR DUMONT Not Available Start: 02-22-2025 ambulatory DMITRIY [facility] Start: 02-21-2025 End: 02-21-2025 Clinisync Result Encounter Generic External Data Provider [facility] External Department Unsolicited Start: 02-21-2025 End: 02-21-2025 Clinisync Result Encounter Generic External Data Provider [facility] External Department Unsolicited Start: 02-20-2025 End: 02-20-2025 ambulatory JAIR FLORIAN [facility] Start: 02-18-2025 End: 02-18-2025 Bamboo flowsheet Renny [...] Start: 01-22-2025 End: 01-22-2025 ambulatory DMITRIY HENNESSY [facility] Start: 01-17-2025 End: 01-17-2025 ambulatory JAIR FLORIAN [facility] Start: 01-01-2025 ambulatory [facility] Start: 12-24-2024 End: 12-24-2024 ambulatory [facility] Start: 12-21-2024 End: 12-21-2024 Clinisync Result [...] 12-17-2024 End: 12-17-2024 ambulatory Miguel Murphy MD Facility:[facility] Start: 11-27-2024 ambulatory [facility] Start: 11-27-2024 ambulatory [facility] Start: 11-13-2024 End: 11-13-2024 ambulatory [facility] Start: 11-09-2024 End: 11-12-2024 Telephone encounter Jr. Sakina C Stepanic DO Work Phone: [...] due to internal joint prosthesis, initial encounter (CMS/[facility]); History of reverse total replacement of left shoulder joint Start: 11-07-2024 End: 11-07-2024 ambulatory SAKINA MARIO Not Available Start: 10-29-2024 Registered Recurring Renny batista II Work Phone: [facility] Work Phone: Start: 10-29-2024 End: 10-29-2024 ambulatory Renny Hansen II Work Phone: [facility] Work Phone: Start: 10-29-2024 End: 10-29-2024 Patient encounter procedure Renny Hansen II Work Phone: [facility] [place] Ambulatory Work Phone: Start: 10-29-2024 End: 10-29-2024 ambulatory Miguel Murphy MD Facility: [place] Start: 10-24-2024 End: 10-24-2024 Patient encounter procedure Renny Hansen II Work Phone: [facility] [place] Work Phone: Start: 10-24-2024 End: 10-24-2024 ambulatory Renny Hansen II Work Phone: [facility] Work Phone: Start: 10-24-2024 End: 10-24-2024 Office outpatient visit 15 minutes Jr. 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 Sakina Cardenas DO Work Phone: [facility] Start: 10-24-2024 End: 10-24-2024 Bamboo flowsheet Jr. Sakina Cardenas DO Work Phone: [facility] Start: 10-24-2024 End: 10-24-2024 External Result Encounter Jr. Sakina Cardenas DO Work Phone: [facility] External Department Unsolicited Start: 10-17-2024 End: 10-17-2024 [...] extremity Start: 10-17-2024 End: 10-17-2024 ambulatory RENNY Shen TYRONE Not Available Start: 10-16-2024 End: 10-16-2024 Patient encounter procedure Renny Hansen II Work Phone: [facility]-Ultrasound Cntr for Breast Car Start: 10-16-2024 End: 10-16-2024 ambulatory Renny Hansen II Work Phone: [facility] Work Phone: Start: 10-09-2024 End: 10-09-2024 Clinisync Result Encounter Generic External Data Provider [facility] External Department Unsolicited Start: 10-09-2024 End: 10-09-2024 Clinisync Result Encounter Generic External Data Provider [facility] External Department Unsolicited Start: 10-04-2024 End: 10-04-2024 ambulatory DMITRIY DUQUE Not Available Start: 10-04-2024 End: 10-04-2024 Office outpatient new 45 minutes Dmitriy Duque DO Work Phone: [facility] Comment on above: Enlarged lymph nodes in armpit (Primary Dx) Start: 10-03-2024 End: 10-03-2024 Clinisync Result Encounter Generic External Data Provider [facility] External Department Unsolicited Start: 10-03-2024 End: 10-03-2024 Clinisync Result Encounter Generic External Data Provider [facility] External Department Unsolicited Start: 10-02-2024 End: 10-02-2024 External Result Encounter Katharina Toledo NAVAL ARCHITECT Work Phone: [facility] External Department Unsolicited Start: 10-02-2024 End: 10-02-2024 External Result Encounter Katharina Toledo NAVAL ARCHITECT Work Phone: [facility] External Department Unsolicited Start: 10-02-2024 Registered Recurring Renny Dominik batista II Work Phone: [facility] Acute Work Phone: Start: 09-25-2024 End: 09-25-2024 ambulatory Renny Hansen II Work Phone: [facility] Work Phone: Start: 09-25-2024 End: 09-25-2024 Patient encounter procedure Renny Hansen II Work [facility] Work Phone: Start: 09-24-2024 End: 09-24-2024 ambulatory [facility] Start: 09-19-2024 End: 09-19-2024 ambulatory LUISANA LEAL Not Available Start: 09-19-2024 End: 09-19-2024 Office outpatient visit 25 minutes Luisana Leal NAVAL ARCHITECT Work Phone: [facility] Comment on above: Acute cystitis with hematuria (Primary Dx); Burning with urination; Centrilobular emphysema (CMS/HCC); Morbid (severe) obesity due to excess calories (CMS/HCC); Body mass index (BMI) 40.0-44.9, adult (CMS/HCC); Chronic obstructive pulmonary disease, unspecified (CMS/HCC); Pulmonary hypertension, unspecified (CMS/HCC); Need for vaccination Start: 09-18-2024 End: 09-18-2024 Bamboo flowsheet Christopher Jose Roberto DO Work Phone: [facility] Start: 09-18-2024 End: 09-18-2024 Bamboo flowsheet Christopher Jose Roberto DO Work Phone: [facility] Start: 09-18-2024 End: 09-18-2024 Office outpatient new 45 minutes Christopher Jose Roberto DO Work Phone: [facility] Comment on above: Axillary lymphadenop athy (Primary Dx); Neck pain on left side; Left arm pain Start: 09-18-2024 End: 09-18-2024 ambulatory SALOME CID Not Available Start: 09-14-2024 End: 09-14-2024 Spenser Hansen MD Work Phone: [facility] Comment on above: Persistent atrial fi brillation (HCC) (CMS/HCC) Start: 09-10-2024 End: 09-10-2024 ambulatory Miguel Murphy MD Facility:[facility] Start: 08-24-2024 End: 08-24-2024 Patient encounter procedure Renny Hansen II Work Phone: [facility] [place] Work Phone: Start: 08-24-2024 End: 08-24-2024 ambulatory Pedro Pablo Cruz Facility:[facility] Start: 08-24-2024 End: 08-24-2024 External Result Encounter Katharina Madai Toledo NAVAL ARCHITECT Work Phone: [facility] External Department Unsolicited Start: 08-24-2024 End: 08-24-2024 External Result Encounter Katharina Madai Toledo NAVAL ARCHITECT Work Phone: [facility] External Department Unsolicited Start: 08-24-2024 End: 08-24-2024 Patient encounter procedure Renny Hansen II Work Phone: [facility] Ambulatory Work Phone: Start: 08-20-2024 End: 08-20-2024 ambulatory Miguel Murphy MD Facility: [place] Start: 08-16-2024 End: 08-16-2024 Bamboo flowsheet Renny [...] Available Start: 07-25-2024 End: 07-25-2024 Telephone encounter Eleanro SANTOS Work Phone: [facility] Start: 07-24-2024 End: 07-24-2024 Bamboo flowsheet Eleanor Dumont PA Work Phone: [facility] Start: 07-24-2024 End: 07-24-2024 Bamboo flowsheet Eleanor Dumont PA Work Phone: [facility] Start: 07-24-2024 End: 07-24-2024 Clinisync Result Encounter Eleanor Dumont PA Work Phone: [facility] External Department Unsolicited [...] Not Available Start: 07-18-2024 End: 07-18-2024 ambulatory [facility] Start: 07-16-2024 End: 07-16-2024 Refill Monster Calvillo NAVAL ARCHITECT Work Phone: [facility] Comment on [...] Not Available Start: 06-19-2024 End: 06-19-2024 ambulatory [facility] Start: 06-18-2024 End: 06-18-2024 Refill Monster Calvillo NAVAL ARCHITECT Work Phone: [facility] Comment on above: Acute on chronic nisa stolic (congestive) heart failure (CMS/HCC) Start: 05-31-2024 End: 05-31-2024 Bamboo flowsheet Monster Calvillo NAVAL ARCHITECT Work Phone: [facility] Start: 05-31-2024 End: 05-31-2024 Bamboo flowsheet Monster Calvillo NAVAL ARCHITECT Work Phone: [facility] Start: 05-31-2024 End: 05-31-2024 Office outpatient visit 15 minutes Monster Calvillo NAVAL ARCHITECT Work Phone: [facility] Comment on above: Acute on chronic nisa stolic (congestive) heart failure (CMS/HCC) (Primary Dx) Start: 05-31-2024 End: 05-31-2024 ambulatory MONSTER CALVILLO Not Available Start: 05-22-2024 End: 05-22-2024 ambulatory Jyothi Acostaovich RT(R) Radiology Comment on above: Radiology XR Start: 05-22-2024 End: 05-22-2024 Patient encounter procedure Jyothijoselito Cruz RT(R) Radiology Comment on above: Pain [...] total replacement of left shoulder joint Start: 05-02-2024 End: 05-02-2024 ambulatory MD Shaikh Denis Work Phone: [facility] Work Phone: Start: 05-02-2024 End: 05-02-2024 Patient encounter procedure MD Shaikh Denis Work Phone: [facility]Nuc [facility] [place] Work Phone: Start: 04-10-2024 End: 04-10-2024 ambulatory MD Shaikh Denis Work Phone: [facility] Work Phone: Start: 04-10-2024 End: 04-10-2024 Patient encounter procedure MD Shaikh Denis Work Phone: [facility] [place] Work Phone: Start: 03-29-2024 End: 03-29-2024 ambulatory MD Shaikh Denis Work Phone: [facility] Work Phone: Start: 03-29-2024 End: 03-29-2024 Patient encounter procedure MD Shaikh Denis Work Phone: [facility]-Pacemaker Check Start: 03-07-2024 End: 03-07-2024 ambulatory Jair R NILL Facility:[id number] Start: 03-02-2024 End: 03-02-2024 ambulatory Jair R NILL Facility: [facility] Start: 03-02-2024 End: 03-02-2024 Patient encounter procedure Jair R NILL [facility] [place] Start: 03-01-2024 ambulatory Jair NILL Facility: [facility] Start: 10-17-2023 Cristobal Denis MD Work Phone: [facility] Start: 10-17-2023 Cristobal Denis MD Work Phone: [facility] Start: 10-11-2023 End: 10-11-2023 ambulatory MD Shaikh Denis Work Phone: [facility] Work Phone: Start: 10-11-2023 End: 10-11-2023 Patient encounter procedure MD Shaikh Denis Work Phone: [facility] [place] Work Phone: Start: 09-08-2023 End: 09-08-2023 ambulatory MD Shaikh Denis Work Phone: [facility] Work Phone: Start: 09-08-2023 End: 09-08-2023 Patient encounter procedure MD Shaikh Denis Work Phone: [facility]-Pacemaker Check Start: 09-06-2023 Patient encounter procedure Shaikh Cira CUBA Work Phone: [facility] Start: 01-31-2023 End: 02-01-2023 ambulatory ANDRIUS [...] Start: 07-13-2022 End: 08-11-2022 ambulatory SHAIKH Kymberly CIRA Facility:[facility] Start: 07-12-2022 End: 07-13-[address] LUISANA JOHNSON . Facility:[facility] Start: 06-13-2022 End: 07-12-2022 ambulatory SHAIKH Kymberly COLÓNMADHURI Facility:[facility] Start: 05-27-2022 End: 05-28-2022 ambulatory LUIZNAYELI QUEEN . Facility:[facility] Start: 05-19-2022 End: 05-20-2022 ambulatory LUIZNAYELI QUEEN . Facility:[facility] Start: 05-13-2022 End: 06-12-2022 ambulatory SHAIKH Kymberly PAGESILVANA Facility:[facility] Start: 04-20-2022 End: 04-21-2022 ambulatory LUIZNAYELI QUEEN . Facility:[facility] Start: 04-12-2022 End: 05-12-2022 ambulatory SAHU H CIRA Facility:[facility] Start: 03-30-2022 End: 03-30-[address] LUISANA JOHNSON . Facility:[facility] Start: 03-12-2022 End: 04-09-2022 ambulatory Kymberly CIRA Facility:[facility] Start: 02-25-2022 End: 02-25-[address] LUISANA JOHNSON . Facility:[facility] Start: 02-24-2022 End: 02-25-[address] LUISANA JOHNSON . Facility:[facility] Start: 10-07-2021 End: 10-07-2021 ambulatory Hong Nevarez Other [facility] Other Start: 10-07-2021 Office outpatient vi sit 15 minutes Hong Nevarez [facility] Start: 08-26-2021 End: 08-26-2021 ambulatory Hong Tonydevon Other [facility] Other Start: 08-26-2021 Office outpatient ne w 45 minutes Hong Nevarez [facility] Start: 10-11-2020 End: 10-13-2020 Evaluation and management of inpatient ZANEJennifer MCGUIRE Facility:[facility] Procedures Date Procedure Procedure Detail Performing Clinician Start: 04-24-2025 ALL CBC WITH AUTO DIFF Generic External Data Provider Start: 04-24-2025 Urnls dip stick/tabl et rgnt non-auto w/o micrscp Shannon Russo NAVAL ARCHITECT Work Phone: Start: 04-24-2025 URINARY TRACT INFECT ION (HTRX) Shannon Russo NAVAL ARCHITECT Work Phone: Start: 02-21-2025 ALL BASIC METABOLIC PANEL Generic External Data Provider Start: 02-21-2025 ALL C REACTIVE PROTEIN Generic External Data Provider Start: 01-03-2025 Ultrasonography of axilla Renny Hansen II Work Phone: Start: 12-21-2024 ALL BASIC METABOLIC PANEL Generic External Data Provider Start: 10-24-2024 C-reactive protein JrMeena Ovalle Stepanic DO Work Phone: Start: 10-24-2024 [...] Start: 10-02-2024 ISTAT XRAY CRE Katharina herrera NAVAL ARCHITECT Work Phone: Start: 10-02-2024 CT of left shoulder with contrast Renny Hansen II Work Phone: Start: 09-19-2024 Urnls dip stick/tabl et rgnt non-auto w/o micrscp Luisana Leal NAVAL ARCHITECT Work Phone: Start: 08-24-2024 Complete blood count with white cell differential, automated Katharina Toledo NAVAL ARCHITECT Work Phone: Start: 07-24-2024 ALL CBC WITH AUTO DIFF Eleanor Dumont PA Work Phone: Start: 07-24-2024 [employer] Filippo Dumont PA Work Phone: Start: 07-24-2024 Transferrin [Mass/vo lume] in Serum or Plasma Eleanor Dumont PA Work Phone: Start: 05-22-2024 Radex shoulder [...] of left tota l knee replacement Jair NILL Appendectomy Jair PARKL Arthroscopy of knee Jair NILL Comment on above: 06/2012 Arthroscopy of [...] abdominal hyst erectomy with bilateral salpingo-oophorectomy Jair PARKL Plan of Treatment Date Care Activity Detail Author Start: 09-12-2027 Screening for malign ant neoplasm of colon [facility] Start: 10-17-2025 Medicare Annual Well ness (AWV) Medicare Annual Wellness (AWV) [facility] Start: 05-16-2025 End: 05-16-2025 Patient encounter procedure [facility] Comment on above: Arrived Start: 05-13-2025 Influenza vaccination Influenza Vacc ine (#1) [facility] Start: 05-03-2025 Patient referral [facility] Work Phone: Start: 05-03-2025 [facility] Start: 04-24-2025 End: 04-24-2026 URINARY TRACT INFECTION (HTRX) URINARY TRACT INFECTION (HTRX) Lab Routine Hematuria, unspecified type Expected: 04/24/2025 (Approximate), Expires: 04/24/2026 [facility] Work Phone: Comment on above: Expected: 04/24/2025 (Approximate), Expires: 04/24/2026 Start: 04-18-2025 End: 04-18-2025 Patient encounter procedure 04/18/2025 11:00 AM EDT Office Visit [facility] [address] [place] [id number] Eleanor Dumont PA [address] [place] [address] Arrived [facility] Comment on above: Arrived Start: 02-18-2025 End: [...] Visit [facility] [address] [facility] [address] [place] [phone] Dmitriy Duque DO [address] [place] [address] [facility] Start: 10-24-2024 End: 10-24-2024 Patient encounter procedure 10/24/2024 2:15 PM EST Office Visit [facility] [address] [facility] [address] [place] [id number] Jr. Sakina Cardenas, DO [address] [facility] [address] [place] [address] Injury of left shoulder and upper arm, sequela; Left shoulder pain, unspecified chronicity [facility] Comment on above: Injury of left shoul kathie and upper arm, sequela; Left shoulder pain, unspecified chronicity Start: 10-17-2024 End: 10-17-2024 Patient encounter procedure [facility] Comment on above: Arrived Start: 10-04-2024 End: 10-04-2024 Patient encounter procedure 10/04/2024 3:45 PM EST Consult [facility] [address] [facility] [address] [place] [phone] Dmitriy Duque, DO [address] [facility] [address] [place] [address] [facility] Start: 09-25-2024 Patient referral [facility] Work Phone: Start: 09-19-2024 End: 09-19-2024 Patient encounter procedure 09/19/2024 3:00 PM EST Office Visit [facility] [address] [facility] [address] [place] [phone] Luisana Leal, NAVAL ARCHITECT [address] [facility] [address] [place] [address] [facility] Start: 09-19-2024 End: 09-19-2025 URINARY TRACT INFECTION (HTRX) URINARY TRACT INFECTION (HTRX) Lab Routine Burning with urination Expected: 09/19/2024 (Approximate), Expires: 09/19/2025 [facility] Work Phone: Comment on above: Expected: 09/19/2024 (Approximate), Expires: 09/19/2025 Start: 09-18-2024 End: 09-18-2024 Patient encounter procedure 09/18/2024 10:15 AM EST Office Visit [facility] [place] [facility] [address] [place] [address] Salome Cid DO [address] [place] [address] Neck pain on left side [facility] [place] [facility] Comment on above: Neck pain on left si de Start: 09-14-2024 End: 09-14-2024 Patient encounter procedure 09/14/2024 10:00 AM EST Office Visit [facility] [address] [place] [address] Renny Hansen MD [address] [place] [address] [facility] Start: 09-10-2024 [facility] Start: 09-10-2024 [facility] Start: 09-06-2024 Medicare Annual Well ness (AWV) Medicare Annual Wellness (AWV) [facility] Start: 09-03-2024 [facility] Start: 08-31-2024 [facility] Start: 08-31-2024 [facility] Start: 08-23-2024 End: 08-23-2024 Patient encounter procedure 08/23/2024 11:45 AM EST Office Visit [facility] [address] [place] [address] Renny Hansen MD [address] [place] [address] [facility] Start: 08-16-2024 End: 08-16-2024 Patient encounter procedure 08/16/2024 10:30 AM EST Office Visit [facility] [address] [place] [address] Renny Hansen MD [address] [place] [address] [facility] Start: 08-02-2024 End: 08-02-2025 [...] blood loss Expected: 07/24/2024 (Approximate), Expires: 07/24/2025 [facility] Comment on above: Expected: 07/24/2024 (Approximate), Expires: 07/24/2025 Start: 07-19-2024 End: 07-19-2024 Patient encounter procedure 07/19/2024 12:00 PM EST Procedure Visit [facility] [address] [place] [phone] [facility] Start: 07-05-2024 End: 07-05-2025 EMG AND NERVE CONDUCTION STUDY EMG AND NERVE CONDUCTION STUDY Neurology Routine Neck pain on left side Radicular pain in left arm Expected: 07/05/2024 (Approximate), Expires: 07/05/2025 [facility] Comment on above: Expected: 07/05/2024 (Approximate), Expires: 07/05/2025 Start: 07-05-2024 End: 09-04-2025 MG Breast - bilateral Screening Bilateral screening mammogram Imaging Routine Breast screening Expected: 07/05/2024 (Approximate), Expires: 09/04/2025 [facility] Work Phone: Comment on above: Expected: 07/05/2024 (Approximate), Expires: 09/04/2025 Start: 07-05-2024 End: 07-05-2024 Patient encounter procedure [facility] Comment on above: Arrived Start: 05-31-2024 End: 05-31-2024 Patient encounter procedure 05/31/2024 1:30 PM EDT Office Visit [facility] [address] [place] [address] Monster Calvillo NP [address] [place] [address] Arrived [facility] Comment on above: Arrived Start: 05-22-2024 End: 08-21-2024 C reactive protein [Mass/volume] in Serum or Plasma C-REACTIVE PROTEIN Lab Routine 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) Expected: 05/22/2024, Expires: 08/21/2024 [facility] Comment on above: Expected: 05/22/2024 , Expires: 08/21/2024 Start: 05-22-2024 End: 08-21-2024 CBC W Auto Differential panel - Blood COMPLETE BLOOD COUNT AND DIFFERENTIAL Lab Routine 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) Expected: 05/22/2024, Expires: 08/21/2024 [facility] Comment on above: Expected: 05/22/2024 , Expires: 08/21/2024 Start: 05-22-2024 End: 08-21-2024 Erythrocyte sedimentation rate SEDIMENTATION RATE, WESTERGREN Lab Routine 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) Expected: 05/22/2024, Expires: 08/21/2024 [facility] Comment on above: Expected: 05/22/2024 , Expires: 08/21/2024 Start: 05-22-2024 End: 05-22-2024 Patient encounter procedure 05/22/2024 2:00 PM EDT Office Visit [facility] [address] [place] [address] Monster Calvillo NP [address] [place] [address] [facility] Start: 05-13-2024 Covid-19 Vaccine () Covid-19 Vaccine () [facility] Start: 05-13-2024 Influenza vaccination Influenza Vacc ine (#1) [facility] Start: 05-09-2024 End: 05-09-2024 Patient encounter procedure 05/09/2024 10:00 AM EDT Office Visit [facility] [address] [place] [phone] Jr. Sakina Cardenas, DO [address] [facility] [address] [place] [address] [facility] Start: 11-07-2023 End: 11-07-2023 Patient encounter procedure 11/07/2023 2:30 PM EST Office Visit [facility] [address] [place] [address] Shaikh Denis MD [address] [place] [phone] [facility] Start: 10-17-2023 End: 10-17-2023 Patient encounter procedure 10/17/2023 10:15 AM EST Office Visit [facility] [address] [place] [address] Shaikh Denis MD [address] [place] [phone] Arrived [facility] Comment on above: Arrived Start: 09-12-2023 Advance Directive Discussion Advance Directive Discussion [facility] Start: 11-30-2012 Screening for osteoporosis Bone Dens ity Screening [facility] Start: 11-30-1997 Shingrix Vaccine (1 of 2) Reyes grix Vaccine (1 of 2) [facility] Start: 11-30-1992 Diabetes Screening Diabetes Screenin g [facility] Start: 11-30-1966 Urine microalbumin profile DTa P,Tdap,Td Vaccine (1 - Tdap) [facility] Start: 11-30-1965 Anxiety Screening Anxiety Screening [facility] Start: 11-30-1965 Depression Screening Depression Scre ening [facility] Start: 11-30-1965 Hepatitis C screening Hepatitis C Sc reening [facility] Start: 1945 Screening for malign ant neoplasm of colon [facility] CBC W Auto Different ial panel - Blood CBC auto differential Lab Routine 10/02/2024 11:54 AM EST [facility] Work Phone: CBC W Auto Different ial panel - Blood [facility] Work Phone: Comment on above: Ordered: 10/24/2024 Comprehensive metabo lic 2000 panel - Serum or Plasma [facility] Comprehensive metabo lic 1999 panel - Serum or Plasma [facility] Comprehensive metabo lic 2000 panel - Serum or Plasma [facility] CT Shoulder - left W contrast IV [facility] End: 06-21-2025 CT Shoulder - left WO contrast CT SHOULDER WO IVCON LEFT Radiology Routine 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) 1 Occurrences starting 05/22/2024 until 06/21/2025 [facility] Work Phone: Comment on above: 1 Occurrences starti ng 05/22/2024 until 06/21/2025 Iron and Iron bindin g capacity panel - Serum or Plasma Iron and TIBC Lab Routine 08/24/2024 2:30 PM EST [facility] Work Phone: Iron and Iron bindin g capacity panel - Serum or Plasma Iron and TIBC Lab STAT 10/02/2024 11:54 AM EST [facility] Work Phone: Patient referral [facility] Work Phone: [facility] Immunizations Immunization Date Immunization Notes Care Provider [facility] 09-19-2024 Influenza, High-dose Seasonal, Quadrivalent, Preservative Free Luisana Leal NAVAL ARCHITECT Work Phone: [facility] 09-19-2024 influenza virus vacc ine, unspecified formulation Eleanor Dumont PA Work Phone: [facility] 08-25-2023 influenza virus vacc ine, unspecified formulation Jair ALEXANDER [facility] [place] 08-25-2023 Influenza, Seasonal, Quadrivalent, Adjuvanted Shaikh Cira CUBA Work Phone: [facility] 08-25-2023 RSV, recombinant, protein subunit RSVpreF, adjuvant reconstitu, 120mcg/0.5mL, PF (Arexvy) Shaikh Cira CUBA Work Phone: [facility] 07-08-2022 influenza virus vacc ine, unspecified formulation Jair ALEXANDER [facility] 07-08-2022 Influenza, Seasonal, Quadrivalent, Adjuvanted Shaikh Cira CUBA Work Phone: [facility] 08-20-2021 influenza virus vacc ine, unspecified formulation Jair ALEXANDER [facility] 08-20-2021 Influenza, Seasonal, Quadrivalent, Adjuvanted Shaikh Cira CUBA Work Phone: [facility] 08-20-2021 pneumococcal polysaccharide vaccine, 23 valent Jair ALEXANDER [facility] 11-18-2020 SARS-CoV-2 (COVID-19 ) mRNA-1273 vaccine Jair ALEXANDER [facility] 10-20-2020 SARS-CoV-2 (COVID-19 ) mRNA-1273 vaccine Jair ALEXANDRE [facility] 08-04-2020 influenza virus vacc ine, unspecified formulation Jair NILL [facility] 08-04-2020 Influenza, Seasonal, Quadrivalent, Adjuvanted Shaikh Cira CUBA Work Phone: [facility] 08-04-2020 pneumococcal conjuga te vaccine, 13 valent Jair NILL [facility] 08-06-2019 influenza virus vacc ine, unspecified formulation Jair NILL [facility] 08-06-2019 influenza, high dose seasonal, preservative-free Shaikh Cira CUBA Work Phone: [facility] 07-05-2017 influenza virus vacc ine, unspecified formulation Jair NILL [facility] 07-05-2017 pneumococcal conjuga te vaccine, 13 valent Jair ALEXANDER [facility] 07-05-2017 Seasonal trivalent influenza vaccine, adjuvanted, preservative free Shaikh Cira CUBA Work Phone: [facility] 06-29-2016 influenza virus vacc ine, unspecified formulation Jair ALEXANDER [facility] 06-29-2016 Seasonal trivalent influenza vaccine, adjuvanted, preservative free Shaikh Cira CUBA Work Phone: [facility] 06-25-2015 influenza virus vacc ine, unspecified formulation Jair ALEXANDER [facility] 06-25-2015 influenza, injectabl e, quadrivalent, contains preservative Shaikh Cira CUBA Work Phone: [facility] 06-12-2015 influenza virus vacc ine, unspecified formulation Jair ALEXANDER [facility] 06-12-2015 seasonal influenza, intradermal, preservative free Shaikh Cira CUBA Work Phone: [facility] 07-12-2014 influenza virus vacc ine, unspecified formulation Jair ALEXANDER [facility] 07-12-2014 influenza, injectabl e, quadrivalent, contains preservative Shaikh Cira CUBA Work Phone: [facility] 08-07-2013 influenza virus vacc ine, unspecified formulation Jair PARKMariah [facility] 08-07-2013 influenza, seasonal, injectable Shaikh Cira CUBA Work Phone: [facility] Payers Date Payer Category Payer Unknown [id number] 2024 Medicare (Managed Care) [employer] MEDICARE [id number] 2024 Unknown [id number] 2024 Unknown 2024 Self-pay [id number] 2023 Medicaid [employer] MEDICARE A DVANTAGE [id number] 2023 Private Health Insurance [facility] [id number] 2023 Private Health Insurance 2023 Managed Care HMO (unspecified) OSEI FRANZ [id number] 2023-Present [address] [place] [address] HMO [id number] 2007 Medicare [id number] 1959 Medicare [id number] 1959 Private Health Insurance [facility] [id number] 1945 Unknown [id number] 2.16.840.1.205437.3.579.2. 647 1947 Unknown [id number] 2.16.840.1.457681.3.579.2. 593 1947 Unknown [id number] 2.16.840.1.969716.3.579.2. 593 1947 Unknown [id number] 2.16.840.1.942137.3.579.2. 593 1947 Unknown [id number] 2.16.840.1.560535.3.579.2. 593 1947 Unknown [id number] 2.16.840.1.278588.3.579.2. 593 1947 Unknown [id number] 2.16.840.1.132551.3.579.2. 593 1947 Unknown [id number] 2.16.840.1.672803.3.579.2. 593 1947 Unknown [id number] 2.16.840.1.418055.3.579.2. 593 1947 Unknown [id number] 2.16.840.1.655192.3.579.2. 593 1947 Unknown [id number] 2.16.840.1.497321.3.579.2. 593 1947 Unknown [id number] 2.16.840.1.307768.3.579.2. 593 1947 Unknown [id number] 2.16.840.1.853881.3.579.2. 593 1947 Unknown [id number] 2.16.840.1.145274.3.579.2. 593 1947 Unknown [id number] 2.840.1.306933.3.579.2. 593 1947 Unknown [id number] 2.16.840.1.691659.3.579.2. 593 1947 Unknown [id number] 2.16.840.1.913744.3.579.2. 593 1947 Unknown [id number] 2.16.840.1.269369.3.579.2. 593 1947 Unknown [id number] .840.1.985001.3.579.2. 593 1947 Unknown [id number] 2.16.840.1.739982.3.579.2. 593 1947 Unknown [id number] 2.16.840.1.776538.3.579.2. 593 1947 Unknown [id number] 2.16.840.1.436579.3.579.2. 593 1947 Unknown [id number] 2.16.840.1.717225.3.579.2. 593 1947 Unknown [id number] 2.16.840.1.927075.3.579.2. 593 1947 Unknown [id number] 2.16.840.1.627648.3.579.2. 593 1947 Unknown [id number] 2.16.840.1.072135.3.579.2. 593 1947 Unknown [id number] 2.16.840.1.989190.3.579.2. 593 1947 Unknown [id number] 2.16.840.1.817504.3.579.2. 727 1947 Unknown [id number] 2.16.840.1.622356.3.579.2. 727 1947 Unknown [id number] 2.16.840.1.401272.3.579.2. 196 1947 Unknown [id number] 2.16.840.1.709563.3.579.2. 196 1947 Unknown [id number] 2.16.840.1.265219.3.579.2. 196 1947 Unknown [id number] 2.16.840.1.731891.3.579.2. 196 1947 Unknown [id number] 2.16.840.1.901595.3.579.2. 196 1947 Unknown [id number] 2.16.840.1.642890.3.579.2. 196 1947 Unknown [id number] 2.16.840.1.829288.3.579.2. 1259 1947 Unknown [id number] 2.16.840.1.140088.3.579.2. 1259 1947 Unknown [id number] 2.16.840.1.624644.3.579.2. 1259 1947 Unknown [id number] 2.16.840.1.040377.3.579.2. 1259 1947 Unknown [id number] 2.16.840.1.668248.3.579.2. 1258 1947 Unknown [id number] 2.16.840.1.268227.3.579.2. 1258 1947 Unknown [id number] 2.16.840.1.313426.3.579.2. 1258 1947 Unknown [id number] 2.16.840.1.464957.3.579.2. 1258 1947 Unknown [id number] 2.16.840.1.168716.3.579.2. 1258 1947 Unknown [id number] 2.16840.1.863267.3.579.2. 1258 1947 Unknown [id number] 2.16840.1.276304.3.579.2. 1258 1947 Unknown [id number] 2.16840.1.467381.3.579.2. 1258 1947 Unknown [id number] 2.16840.1.897559.3.579.2. 1258 1947 Unknown [id number] 2.16840.1.785442.3.579.2. 1258 1947 Unknown [id number] 2.16840.1.775991.3.579.2. 1258 1947 Unknown [id number] 2.16840.1.850410.3.579.2. 1258 1947 Unknown [id number] 2.16840.1.903100.3.579.2. 1259 Medicare Medicare Outpatient [id number] 1A [id number] Unknown [facility] [place] [id number] Unknown [id number] 2.16840.1.647157.3.579.2. 531 Unknown [id number] 2.16.840.1.306073.3.579.2. 531 Unknown [id number] 2.16840.1.136045.3.579.2. 531 Unknown [id number] 2.16.840.1.103072.3.579.2. 531 Social History Date Type Detail Facility Start: 08-30-2023 End: 11-12-2024 Sex Assigned At [facility] Start: 1945 Sex Assigned At Female [facility] Start: 08-18-2023 End: 10-17-2024 Tobacco smoking status OKIS Ex-smoker [facility] Start: 09-12-1967 History of tobacco use Current smoker [facility] Start: 09-12-1967 History of tobacco use Cigarette Smoker [facility] Start: 09-02-2023 Alcohol intake Not Asked [facility] Start: 08-30-2023 End: 11-12-2024 History of Social function [facility] Within the last year , have you been afraid of your partner or ex-partner? No [facility] How often do you att end jainism or mormon services? Patient refused [facility] Do you belong to any clubs or organizations such as jainism groups, unions, fraternal [...] Start: 08-18-2023 Alcohol Comment (Audit-C) : Negative [facility] Start: 1945 Sex Assigned At Not on file [facility] Start: 04-27-2013 End: 05-22-2024 Tobacco smoking status [facility] Never smoked tobacco (finding) [facility] Start: 05-22-2024 Tobacco use and exposure Smokeless tobacco non-user [facility] Start: 05-22-2024 End: 04-24-2025 Alcoholic beverage intake Current drinker of alcohol (finding) [facility] History of tobacco use Passive smoker [facility] Start: 11-07-2023 Alcohol Comment OCCASSIONAL [facility] Start: 09-25-2024 End: 10-29-2024 Sex Female (finding) [facility] Are you now , , , , never or living with a partner? Living with partner [facility] Do you feel stress - tense, restless, nervous, or anxious, or unable to sleep at night because your mind is troubled all the time - these days [OSQ] To some extent [facility] (I/We) worried wheth er (my/our) food would run out before (I/we) got money to buy more. Never true [facility] How often do you nee d to have someone help you when you read instructions, pamphlets, or other written material from your doctor or pharmacy [SILS] Never [facility] Work Phone: Goals Date Patient Goal Desired Activity /State Functional Status Date Assessment Result Facility 04-24-2025 Patient Health Quest ionnaire 2 item (PHQ-2) [Reported] [facility] 04-18-2025 Patient Health Quest ionnaire 2 item (PHQ-2) [Reported] [facility] 02-18-2025 Patient Health Quest ionnaire 2 item (PHQ-2) [Reported] [facility] 03-02-2024 Functional Status N/A [facility] [place] Clinical Notes 08-26-2021 to 05-15-2025 Shannon Russo NP - 04/24/2025 9:30 AM DANIELLE Guerra - 04/18/2025 11:00 AM Akhil Hansen MD - 02/18/2025 11:30 AM Akhil Hansen MD - 12/17/2024 11:00 AM EDTPatient Instructions Note Date & Type Note Facility 05-15-2025 Note Subjective Patient ID: Breann Starks is [...] Repeat labs today Follow-up in 3 months [facility] 04-24-2025 History of Present illness Narrative Images [...] by mouth every 12 (twelve) hours HYDROcodone-acetaminophen (Mentor) 5-325 MG tablet Take 1 tablet by [...] follow-ups on file. documented in this encounter [facility] 04-18-2025 History of Present illness Narrative Subjective Patient ID: Breann Starks is a 79 y.o. female who presents for COPD. Breann is present today for follow up COPD. She has a nebulizer at home but is not working properly and it is over 20 years old. She would like it sent to [facility] in [place] (old [employer]). She uses it as needed. She does [...] by mouth every 12 (twelve) hours HYDROcodone-acetaminophen (Mentor) 5-325 MG tablet Take 1 tablet by [...] broken. Will fax order for nebulizer to [facility], . It is medically necessary for patient [...] the nebulizer, patient is at risk for FISHING ROD ASSEMBLER Exacerbation that may require hospitalization, as well as hypoxia which can lead to falls. Falls can cause potentially fatal injuries. Refill provided on the nebulizer solution also at today's visit. Follow up for Appointment As Scheduled. documented in this encounter [facility] 02-20-2025 Note Subjective Patient ID: Breann [...] Repeat labs today Follow-up in 3 months [facility] 02-18-2025 History of Present illness Narrative [...] by mouth every 12 (twelve) hours HYDROcodone-acetaminophen (Mentor) 5-325 MG tablet Take 1 tablet by [...] months (around 05/21/2025). documented in this encounter [facility] 01-17-2025 Note Subjective Patient ID: Breann [...] sanguis Perfect is the [facility]. Pain in joint of left shoulder [...] - C-reactive protein; (more content not included)... [facility] 01-01-2025 Note Orthopaedic Surgery Subjective Follow-up [...] be an additional personal documentation from me. [facility] 12-24-2024 Note OR Cardiology - [facility] Subjective Breann Starks is a 79 y.o. year old female patient being seen for Coronary Artery Disease, Hypertension, Congestive Heart Failure, Hyperlipidemia, and 3 month follow up Patient Active Problem List Diagnosis Disorder of bursae of shoulder region Chronic obstructive lung disease (CMS/HCC) Atherosclerosis of [place] coronary artery of [place] heart without angina pectoris Diaphragmatic hernia Edema [...] furosemide (Lasix) 4 (more content not included)... [facility] 12-17-2024 History of Present illness Narrative [...] by mouth every 12 (twelve) hours HYDROcodone-acetaminophen (Mentor) 5-325 MG tablet Take 1 tablet by [...] shoulder joint (CMS/HCC) - Seeing Dr Holt ([facility] [place]). On 1 month ATB course. Abnormal mammogram - Results discussed. She has left axillary LAD from above. Enlarged lymph nodes in armpit - This office visit was spent in consultation regarding the patient's current medical problems, differential diagnoses, testing/imaging results, and treatment options. Greater than 25 minutes was spent in [id number] consultation and coordination of care. No follow-ups on file. documented in this encounter [facility] 11-27-2024 Note Orthopedic Surgery Subjective Chief [...] her about suppression versus doing something definitive. [facility] 11-13-2024 Note Orthopedic Surgery Subjective Pain [...] Diagnosis Date Abnormal ECG Arrhythmia Atrial fibrillation ([facility]/HCC) Coronary artery disease Hypertension Objective General: Body mass index is 44.43 kg/m???. No acute distress, comfortable Left UE/Hand: Inspection- swelling and erythema overlying the left shoulder and upper arm Tender to palpation surrounding shoulder, otherwise non-tender ROM: Limited shoulder range of motion patient with flexion to 40 degrees, abduction to 20 full painless motion to all digits and the wrist Strength: lead net software developer 5/5, thumb 5/5, interossei 5/5. wrist extension/flexion [...] be an additional personal documentation from me. [facility] 11-13-2024 Note Patient ID: Breann Starks [...] to verify the correct patient, procedure, equipment, it support technician and site/side marked as required. [facility] 11-10-2024 Telephone encounter Note I think it is the op note left shoulder on 01/07/2022 ( Dr. Amin- [facility]) thanks [facility] Work Phone: 11-10-2024 Miscellaneous Notes I think it is the op note left shoulder on 01/07/2022 ( Dr. Amin- [facility]) thanks Patient called in about seeing and the referral to . Patient needs us to send the op report for LT shoulder to because 's office cannot.. 's fax number is [phone]. Is this ok? documented in this encounter [facility] 11-09-2024 Telephone encounter Note Patient called in about seeing and the referral to . Patient needs us to send the op report for LT shoulder to because 's office cannot.. 's fax number is [phone]. Is this ok? [facility] 11-07-2024 History of Present illness Narrative Images from the original note were not included. HISTORY OF PRESENT ILLNESS: EST PT Breann Starks is an 78 y.o. @ female. (EST PT) - RECHECK (L) SHOULDER ; S/P LABS (CBC W/ DIFF, CRP, SED RATE) S/P (L) REVERSE TSR 12/29/21 - DR AMIN XRAYS, (L) SHOULDER & C-SPINE 04/16/24 IN EPIC ATTEMPTED MRI @ [facility] - UNABLE TO OBTAIN IMAGES D/T PACEMAKER PLACEMENT BONE SCAN 05/02/24 @ [facility] LABS 10/24/24 @ [facility] (CBC W/DIFF, CRP, SED RATE) LABS 05/09/24 @ [facility] (CBC / SED RATE / CRP) NO MDP / PREDNISONE NO RECENT [facility] ([facility] (NECK PAIN 08/2024) NO CHANGE SINCE [...] HER (L) ARM TO USE A BACK COOK CASHIER FOOD PREP ON HER BACK ALLERGIES: Allergies Allergen Reactions [...] (TAMBOCOR) 100 mg, Every 12 hours HYDROcodone-acetaminophen (Mentor) 5-325 MG tablet 1 tablet, 3 times [...] Elbow: none Palpation additional comments: Neg Spurlings Window Shade Cutter strength symmetric. Wrist flex/ ext. Symmetric 5/5 [...] We have recommended a second opinion at [facility] and set her up with a [...] requiring urgent evaluation. documented in this encounter [facility] 10-24-2024 History of Present illness Narrative Images from the original note were not included. HISTORY OF PRESENT ILLNESS: EST PT Breann Starks is an 78 y.o. @ female. (EST PT) (DR. HANSEN REFERRAL) - RECHECK (L) SHOULDER S/P (L) REVERSE TSR 12/29/21 - DR AMIN XRAYS, (L) SHOULDER & C-SPINE 04/16/24 IN EPIC ATTEMPTED MRI @ [facility] - UNABLE TO OBTAIN IMAGES D/T PACEMAKER PLACEMENT BONE SCAN 05/02/24 @ [facility] LABS 05/09/24 @ [facility] (CBC / SED [...] HER (L) ARM TO USE A BACK COOK CASHIER FOOD PREP ON HER BACK ALLERGIES: Allergies Allergen Reactions [...] (TAMBOCOR) 100 mg, Every 12 hours HYDROcodone-acetaminophen (Mentor) 5-325 MG tablet 1 tablet, 3 times [...] Elbow: none Palpation additional comments: Neg Spurlings Window Shade Cutter strength symmetric. Wrist flex/ ext. Symmetric 5/5 [...] due to internal joint prosthesis, initial encounter ([facility]) T84.50XA CBC and differential C-reactive protein [...] requiring urgent evaluation. documented in this encounter [facility] 10-17-2024 History of Present illness Narrative [...] by mouth every 12 (twelve) hours HYDROcodone-acetaminophen (Mentor) 5-325 MG tablet Take 1 tablet by [...] Do you have a medical power of net developer consultant?: No Objective : BP 138/76 Pulse 61 [...] a living will and durable power of net developer consultant for healthcare. We discussed telling kitchen people [...] October 17, 2024 documented in this encounter [facility] 10-16-2024 Radiology Diagnostic study note [facility] [address] [place] [address] [place] [address] Ultrasound Report Signed Patient: Breann Starks MR#: [id number] : 1945 Acct:[id number] Age/Sex: 78 / F ADM Date: Loc: [facility] Room: Type: [facility] Attending Dr: Dmitriy Duque DO Ordering Provider: Dmitriy Duque DO Date of Service: 10/16/24 US/US axilla: R92.8 ([id number]) MM/MM diagnostic mammo BI w/CAD: ENLARGED LT [...] Benton Jr., D.OMeena10/16/2024 2:20 PM Dictation Location: [facility] Tech: Ghazal Barber Transcribed By: STAR 10/16/24 1420 Dictated By: Francisco J Benton Jr, DO 10/16/24 1343 Signed By: 10/16/24 1420 [facility] 10-04-2024 History of Present illness Narrative Images from the original note were not included. Breann Starks 1945 Breann Starks is a 78 y.o. female presents with chief complaint of Consult (Lt axillary lymphadenopathy) HPI: HPI patient was vigorously scratching her back with a back visual effects artist on February 15 and the next day [...] furosemide (LASIX) 40 mg, Oral, Daily HYDROcodone-acetaminophen (Mentor) 5-325 MG tablet 1 tablet, 3 times [...] region with neurogenic claudication SVT (supraventricular tachycardia) ([facility]) URTI (acute upper respiratory infection) Vertigo [...] Former Physical Exam Exam conducted with a hoister present. Constitutional: Appearance: Normal appearance. HENT: Head: [...] doctors on that documented in this encounter [facility] 09-24-2024 Note OR Cardiology - [facility] Subjective Breann Starks is a [...] Chronic obstructive lung disease (CMS/HCC) Atherosclerosis of [place] coronary artery of [place] heart without angina pectoris Diaphragmatic hernia Edema [...] at bedtime. (Patient (more content not included)... [facility] 09-19-2024 History of Present illness Narrative [...] Reported on 09/18/2024) 90 tablet 0 HYDROcodone-acetaminophen (Mentor) 5-325 MG tablet Take 1 tablet by [...] on file. = documented in this encounter [facility] 09-19-2024 Instructions Luisana Leal NP - 09/19/2024 3:00 PM EST Macrobid ordered. Urine sent for culture. documented in this encounter [facility] 09-18-2024 History of Present illness Narrative [...] , wrist extensors , wrist flexor , lead net software developer strength 5/5. Left upper extremity strength is [...] reflex 2+ . Neal's sign negative. Coordination: Gsqbxs-ov-rivo testing and rapid alternating movements are normal [...] and return instructions documented in this encounter [facility] 08-24-2024 Evaluation note Diagnosis Onset Date Resolution Iron deficiency anemia acute De cember 2023 12:55pm [facility] Work Phone: 1(384) 212-611412-13-2024 Evaluation note* Diagnosis Onset Date Resolution Status Admit Date Iron deficiency anemia acute De cember 2023 12:55pm Axillary lymphadenopathy acute September 25, 2024 11:08am Iron deficiency anemia acute Ja nuary 2024 11:08am [facility] Work Phone: 1(929) 352-845512-05-2024 History of Present illness Narrative* Renny Hansen [...] MOUTH EVERY DAY 90 tablet 0 HYDROcodone-acetaminophen (Mentor) 5-325 MG tablet Take 1 tablet by [...] emphysema (CMS/HCC) COPD (chronic obstructive pulmonary disease) ([facility]/HCC) COPD exacerbation (CMS/HCC) 10/17/2023 Coronary artery disease (CMS/HCC) Diastolic dysfunction Essential hypertension (CMS/HCC) History of tobacco abuse Nonalcoholic steatohepatitis (LOJA) Obstructive sleep apnea Osteoarthritis Paroxysmal atrial fibrillation (CMS/HCC) Peptic ulcer disease Secondary pulmonary arterial hypertension (CMS/HCC) Sick sinus syndrome (CMS/HCC) Spinal stenosis, lumbar region with neurogenic claudication SVT (supraventricular tachycardia) ([facility]/HCC) URTI (acute upper respiratory infection) Vertigo [...] for As Previously Scheduled. documented in this encounterHawthorn Children[facility]iatric [id number] History of Present illness Narrative* Renny Hansen [...] MOUTH EVERY DAY 90 tablet 0 HYDROcodone-acetaminophen (Mentor) 5-325 MG tablet Take 1 tablet by [...] Date Anemia Atrial fibrillation (CMS/HCC) Centrilobular emphysema ([facility]/HCC) COPD (chronic obstructive pulmonary disease) ([facility]) COPD exacerbation ([facility]/HCC) 10/17/2023 Coronary artery disease ([facility]/HCC) Diastolic dysfunction Essential hypertension ([facility]/HCC) History of tobacco abuse Nonalcoholic steatohepatitis (LOJA) Obstructive sleep apnea Osteoarthritis Paroxysmal atrial fibrillation ([facility]/HCC) Peptic ulcer disease Secondary pulmonary arterial hypertension ([facility]/HCC) Sick sinus syndrome ([facility]/HCC) Spinal stenosis, lumbar region with neurogenic claudication SVT (supraventricular tachycardia) ([facility]) URTI (acute upper respiratory infection) Vertigo [...] Greater than 25 minutes was spent in bxmg-bn-qnuy consultation and coordination of care. Persistent atrial fibrillation (HCC) (CMS/HCC) Nausea - FL upper GI double contrast w KUB; Future Follow up in about 2 weeks (around 08/16/2024) for Test/Lab Review. documented in this encounterHawthorn Children's Psychiatric [id number] Telephone encounter Note* Telephone Encounter - DANIELLE Florence - 07/25/2024 1:07 PM EST My chart message. [facility] [id number] Miscellaneous Notes* Telephone Encounter - DANIELLE Florence - 07/25/2024 1:07 PM EST My chart message. documented in this encounterHawthorn Children's Psychiatric [id number] History of Present illness Narrative* DANIELLE Florence [...] arm. Pt does see pain magment in [place]. Sees their office next week on the [...] MOUTH EVERY DAY 90 tablet 0 HYDROcodone-acetaminophen (Mentor) 5-325 MG tablet Take 1 tablet by [...] Neck pain on left side Can continue Mentor as needed for pain. Radicular pain in [...] hypertension (CMS/HCC) The patient is seeing a emergency medical tech for this condition, treatment is deferred to that specialist. Correspondence from that specialist and any available testing were reviewed during today's visit. She will be having Cardiac Catheterization for further evaluation of the pulmonary hypertension. Other thrombophilia Will recheck with updated labs. Follow up in about 4 weeks (around 08/21/2024) for Next scheduled follow-up with Dr. Hansen. documented in this encounterHawthorn Children's Psychiatric [id number] Telephone encounter Note* Telephone Encounter - DANIELLE Florence - 07/24/2024 10:04 AM EST Will discuss with pt at today's OV [facility] [id number] Miscellaneous Notes* Telephone Encounter - DANIELLE Florence - 07/24/2024 10:04 AM EST Will discuss with pt at [facility]'s OV * Telephone Encounter - Renny Hansen MD - 07/05/2024 2:55 PM EDT Call after mammogram with plan. See last OV. documented in this encounterHawthorn Children's Psychiatric [id number] NoteUT Cardiology - [facility] Subjective Breann Starks is a 78 y.o. year old female patient being seen for Atrial Fibrillation, PACEMAKER, Coronary Artery Disease, Hypertension, Sinus node dysfunction (HAS BOSTON PACER), Obesity, and Edema Patient Active Problem List Diagnosis Disorder of bursae of shoulder region Chronic obstructive lung disease (CMS/HCC) Atherosclerosis of [place] coronary artery of [place] heart without angina pectoris Diaphragmatic hernia Edema [...] rhythm, normal EKG Ech (more content not included)...[facility]10-24-2024 Telephone encounter Note* Telephone Encounter - Renny Hansen MD - 07/05/2024 2:55 PM EDT Call after mammogram with plan. See last OV. [facility] [id number] History of Present illness Narrative* Renny Hansen [...] MOUTH EVERY DAY 90 tablet 0 HYDROcodone-acetaminophen (Mentor) 5-325 MG tablet Take 1 tablet by [...] Greater than 45 minutes was spent in abjn-gy-wbhw consultation and coordination of care. Follow up in about 4 months (around 11/05/2024) for Call after mammogram. documented in this encounterHawthorn Children's Psychiatric [id number] History of Present illness Narrative* Monster Calvillo [...] of suspected CHF exacerbation. documented in this encounterHawthorn Children's Psychiatric HospitalLaxpzrcbcd02-18-3236 NoteHNO ID: [id number] Author: BOO BUCHANAN PA-C Service: ? Author Type: Physician Customer Account Administrator Type: Progress Notes Filed: 05/22/2024 13:53 Note [...] She was recommended for second opinion at [facility]. She also had a CRP and ESR [...] No date: COPD (chronic obstructive pulmonary disease) ([facility]) SOCIAL HISTORY: Tobacco Use: Never EXAMINATION: [...] 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 ([facility]) T84.84XA CT SHOULDER WO IVCON LEFT [...] of the hardware. Bone scan performed at [facility] to be uploaded to the system. Boo Buchanan (more content not included)...[facility] 05-22-2024 History of Present illness Narrative* [...] She was recommended for second opinion at [facility]. She also had a CRP and ESR [...] No date: COPD (chronic obstructive pulmonary disease) ([facility]) SOCIAL HISTORY: Tobacco Use: Never EXAMINATION: [...] 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 ([facility]) T84.84XA CT SHOULDER WO IVCON LEFT [...] of the hardware. Bone scan performed at [facility]' to be uploaded to the system. Boo Buchanan PA-C documented in [facility] encounter[facility]09-[facility]-2024 NoteHNO ID: [id number] Author: JYOTHI CRUZ RT(Dario) Service: ? Author [...] PATIENT PRESENTS WITH AN IMPLANTABLE OR ATTACHED WELFARE ADMINISTRATOR: No RADIOLOGY DEPARTMENT: General X-ray: Exam(s) Completed: Upper Extremity X-Ray(s): Shoulder, AP / TRUE AP / AXILLARY / SUPRA OUTLET left PERIPHERAL IV DATA: Not applicable SIGNED BY: RT Chaparrita(Dario) May 22, 2024 1:25 [facility]09-10-2024 History of Present illness Narrative* Jyothi [...] PATIENT PRESENTS WITH AN IMPLANTABLE OR ATTACHED WELFARE ADMINISTRATOR: No RADIOLOGY DEPARTMENT: General X-ray: Exam(s) Completed: Upper Extremity X- Ray(s): Shoulder, AP / TRUE AP / AXILLARY / SUPRA OUTLET left PERIPHERAL IV DATA: Not applicable SIGNED BY: RT Chaparrita(R) May 22, 2024 1:25 PM documented in this encounterOhio [facility] System08-28-2024 History of Present illness Narrative* Jr. Sakina Cardenas DO - 05/09/2024 10:00 AM EDT Images from the original note were not included. HISTORY OF PRESENT ILLNESS: EST PT Breann Starks is an 78 y.o. @ female. (EST PT ; LAST APPT W/ QUINN) RECHECK (L) SHOULDER PAIN ; HERE FOR BONE SCAN RESULTS 05/02/24 @ [facility] (VERBAL GIVEN PER QUINN - REFERRAL SENT TO DR AMIN) & LABS 05/09/24 @ [facility] (CBC / SED RATE / CRP) S/P (L) REVERSE TSR 12/29/21 - DR AMIN XRAYS, (L) SHOULDER & C-SPINE 04/16/24 IN EPIC ATTEMPTED MRI @ [facility] - UNABLE TO OBTAIN IMAGES D/T PACEMAKER PLACEMENT BONE SCAN 05/02/24 @ [facility] LABS 05/09/24 @ [facility] (CBC / SED RATE / CRP) [...] USING HER(L) ARM TO USE A BACK COOK CASHIER FOOD PREP ON HER BACK ALLERGIES: Allergies Allergen Reactions Nsaids Other Reaction(s): HEART ISSUES Digoxin Rash Wound Dressing Adhesive Rash HOME MEDICATIONS: Current Outpatient Medications Medication Instructions apixaban (ELIQUIS) 5 mg, Oral, 2 times daily ferrous sulfate 325 mg, Oral, Daily with breakfast, Do not crush, chew, or split. flecainide (TAMBOCOR) 100 mg, Oral, Every 12 hours furosemide (LASIX) 40 mg, Oral, Daily HYDROcodone-acetaminophen (Mentor) 5-325 MG tablet 1 tablet, Oral, 3 [...] Elbow: none Palpation additional comments: Neg [place] Cutter strength symmetric. Wrist flex/ ext. Symmetric 5/5 [...] basis. Sakina Cardenas D.O. documented in this encounterHawthorn Children's Psychiatric [id number] NoteChief Complaint consultation for anemia HPI Staff 78 year old female presents on consultation from [facility] [place] [facility] for anemia. Labs completed yesterday with [...] PSVT, spinal stenosis, cervical radiculopathy; referred from [facility] ED for anemia, low iron, [...] PSVT (paroxysmal supraventricular t (more content not included)...[facility] HospitalComment on above:Result Comment: Electronically Signed By: CATHERINE CUBA, Jair Quinonez\Date and Time Signed: 03/02/24 13:01 [id number] Evaluation note* Encounter Date Diagnosis Assessment Notes Treatment Notes Treatment Clinical Notes Sep, LOJA (nonalcoholic steatohepatitis) (ICD-10 - K75.81) OBTAIN FIBROSURE RESULTS FROM [facility] REASSURANCE ON RESULTS PT ENCOURAGED WEIGHT LOSS RTO ONE YEAR WITH LABS ANNUALLY Sep, Unspecified cirrhosis of liver (ICD-10 - K74.60) [facility] Other 12-15-2021 Evaluation note* Encounter Date Diagnosis Assessment Notes Treatment Notes Treatment Clinical Notes Aug, Nonalcoholic steatohepatitis (LOJA) (ICD-10 - K75.81) RTO 6-8 WEEKS Aug, Unspecified cirrhosi s of liver (ICD-10 - K74.60) Aug, Morbid obesity (ICD- 10 - E66.01) [facility] Other Evaluation + Plan note No data available for this section [facility] [place] Evaluation noteNo assessment information available [facility] Work Phone: Evaluation note* Diagnosis 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)- Primary Left shoulder pain, unspecified chronicity Left shoulder pain, unspecified chronicity [facility] Diagnosis Left shoulder pain, unspecified chronicity [facility]* Diagnosis Acute on chronic diastolic (congestive) heart failure (CMS/HCC) documented in this encounter [facility]* Diagnosis Essential hypertension (CMS/HCC)- Primary [...] syndrome, unspecified type documented in this encounter [facility]Evaluation [facility]* Diagnosis Essential hypertension (CMS/HCC)- [...] Unspecified essential hypertension documented in this encounter [facility] HealthcareEvaluation note* Diagnosis Essential hypertension [...] Other thrombophilia (CMS/HCC) documented in this encounter [facility] HealthcareEvaluation note* Diagnosis Essential hypertension [...] blood loss (chronic) documented in this encounter [facility] HealthcareEvaluation note* Diagnosis Essential hypertension [...] Nausea Nausea alone documented in this encounter [facility]* Diagnosis Essential hypertension (CMS/HCC)- [...] Nausea Nausea alone documented in this encounter [facility] HealthcareEvaluation note* Diagnosis Acute pain of left shoulder- Primary History of reverse total replacement of left shoulder joint documented in this encounter [facility]* Diagnosis Chronic left shoulder pain Pain in joint, shoulder region documented in this encounter [facility]Evaluation note* Diagnosis Acute on chronic diastolic (congestive) heart failure (CMS/HCC)- Primary documented in this encounter [facility] HealthcareEvaluation note* Diagnosis Essential hypertension [...] (CMS/HCC) Atrial fibrillation documented in this encounter [facility]* Diagnosis Essential hypertension (CMS/HCC)- [...] tissues of limb documented in this encounter [facility] HealthcareEvaluation note* Diagnosis Essential hypertension [...] unspecified single disease documented in this encounter [facility] note* Diagnosis Essential hypertension (CMS/HCC)- [...] of lymph nodes documented in this encounter [facility] note* Diagnosis Essential hypertension (CMS/HCC)- [...] left upper extremity documented in this encounter [facility] note* Diagnosis Essential hypertension (CMS/HCC)- [...] initial encounter (CMS/HCC) documented in this encounter [facility] HealthcareEvaluation note* Diagnosis Essential hypertension (CMS/HCC)- [...] left shoulder joint documented in this encounter [facility] note* Diagnosis Essential hypertension (CMS/HCC)- [...] of lymph nodes documented in this encounter [facility] HealthcareEvaluation note* Diagnosis Essential hypertension [...] legs syndrome (RLS) documented in this encounter [facility] HealthcareEvaluation note* Diagnosis Essential hypertension- [...] (BMI) of 45.0 to 49.9 in adult ([facility]-HCC) Acute on chronic diastolic (congestive) heart failure [...] type (HCC)- Primary documented in this encounter [facility] HealthcareEvaluation note* Diagnosis Essential hypertension- [...] in this encounter [facility]* Diagnosis Onset Date Resolution Status Admit Date Axillary lymphadenopathy acute May 03, 2025 1:47pm Iron deficiency anemia acute Au 2024 1:47pm [facility] Work Phone: History general Narrative - [...] Surgical History pacemaker Hospitalization History see above [facility] Other Hospital Discharge instructions No data available for this section [facility] [place] [facility] Discharge instructionsAmbulatory Orders* Referral to General Surgery Location: None [facility] Work Phone: Progress note No data available for this section [facility] [place] Reason for referral (narrative)* Diagnostic Procedure Only (Routine) - Closed Specialty Diagnoses / Procedures Referred By Contac t Referred To Contact XR IMAGING Diagnoses Left shoulder pain, unspecified chronicity Procedures XR SHOULDER ORTHO 4V AP/TRUE AP/LAT/OUTLET LEFT RADEX SHOULDER COMPLETE MINIMUM 2 VIEWS Boo Buchanan PA-C [address] [facility] [place] [address] [place] [address] Referral ID Status Reason Start Date Expiration Date V isits Requested Visits Authorized [id number] Closed Auto-Generate d Referral 05/08/2024 06/07/2025 1 1 [facility] for visit Narrative* Diagnostic Procedure Only (Routine) - Closed Specialty Diagnoses / Procedures Referred By Contac t Referred To Contact XR IMAGING Diagnoses Left shoulder pain, unspecified chronicity Procedures XR SHOULDER ORTHO 4V AP/TRUE AP/LAT/OUTLET LEFT RADEX SHOULDER COMPLETE MINIMUM 2 VIEWS Boo Buchanan PA-C [address] [facility] [place] [address] [place] [address] Referral ID Status Reason Start Date Expiration Date V isits Requested Visits Authorized [id number] Closed Auto-Generate d Referral 05/08/2024 06/07/2025 1 1 [facility] for visit Narrative* Consultation (Routine) - Closed Specialty Diagnoses / Procedures Referred By Contac t Referred To Contact Neurology Diagnoses Neck pain on left side Procedures [place] OFFICE/OUTPATIENT NEW HIGH MDM 60 MINUTES Renny Hansen MD [address] [facility] [address] [place] [address] Phone: tel: fax: Paula Lord MD [address] [place] [address] Phone: tel: fax: Referral ID Status Reason Start Date Expiration Date V isits Requested Visits Authorized [id number] Closed Specialty Services Required 09/13/2024 03/12/2025 1 [...] 2:41pm Iron Deficiency October 29, 2024 3:04pm Chief Complaint Admit Date Follow Up May 03, 2025 1: 47pm Iron Deficiency May 03, 2025 1: 48pm Reason for Visit Admit Date Axillary lymphadenopathy May 03 1:47pm Iron deficiency anemia May 03, 2025 1:47pm Reason for Referral Specialty Diagnoses / Procedures Referred By Contac t Referred To Contact Diagnoses Chronic left shoulder pain Monster Calvillo, ELBERT [address] [facility] [address] [address] Referral ID Status Reason Start Date Expiration Date V isits Requested Visits Authorized [id number] Pending Review 05/16/2024 11/12/2024 1 1 Specialty Diagnoses / Procedures Referred By Curryac t Referred To Contact CT IMAGING Diagnoses 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) Procedures CT SHOULDER WO IVCON LEFT CT UPPER EXTREMITY W/O CONTRAST MATERIAL Boo Buchanan PA-C [address] [facility] [place] [address] [place] [address] Referral ID Status Reason Start Date Expiration Date Visits Requested Visits Authorized [id number] New Request Auto-Generat ed Referral 05/22/2024 06/21/2025 1 1 Specialty Diagnoses / Procedures Referred By Millie t Referred To Contact XR IMAGING Diagnoses Left shoulder pain, unspecified chronicity Procedures XR SHOULDER ORTHO 4V AP/TRUE AP/LAT/OUTLET LEFT RADEX SHOULDER COMPLETE MINIMUM 2 VIEWS Boo Buchanan PA-C [address] [facility] [place] [address] [place] [address] Referral ID Status Reason Start Date Expiration Date V isits Requested Visits Authorized [id number] Closed Auto-Generate d Referral 05/08/2024 06/07/2025 1 1 Additional Source Comments INFORMATION SOURCE (unrecogn ized section and content) DATE CREATED AUTHOR 10/23/2021 [facility] DATE CREATED AUTHOR AUTHOR'S ORGANIZ ATION 01/22/2022 [facility] DATE CREATED AUTHOR AUTHOR'S ORGANIZ ATION 02/18/2023 [facility] DATE CREATED AUTHOR AUTHOR'S ORGANIZ ATION 03/11/2024 [facility] DATE CREATED AUTHOR AUTHOR'S ORGANIZ ATION 05/24/2024 [facility] DATE CREATED AUTHOR AUTHOR'S ORGANIZ ATION 05/02/2025 [facility] DATE CREATED AUTHOR AUTHOR'S ORGANIZ ATION 05/17/2025 [facility] DATE CREATED AUTHOR AUTHOR'S ORGANIZ ATION 05/17/2025 [facility] DATE CREATED AUTHOR AUTHOR'S ORGANIZ ATION 05/18/2025 [facility] EPIC REASON FOR VISIT (unrecogniz ed section and content) Reason Comments Pain Specialty Diagnoses / Procedures Referred By Contac t Referred To Contact Orthopaedic Surgery Diagnoses Injury of left shoulder and upper arm, sequela Left shoulder pain, unspecified chronicity Renny Hansen MD [address] [facility] [address] [place] [address] Phone: tel: fax: Jr. Sakina Cardenas, DO [address] [place] [address] Phone: tel: fax: Referral ID Status Reason Start Date Expiration Date V isits Requested Visits Authorized [id number] Closed Specialty Services Required 10/17/2024 04/15/2025 1 [...] ORTHOPAEDIC SURGERY Pedro Pablo Cruz PA [address] [facility] [address] [place] [address] González Alvarado MD [address] [place] [address] Referral ID Status Reason Start Date Expiration Date V isits Requested Visits Authorized [id number] Authorized 05/08/2024 09/11/2024 99 99 Reason Comments [...] October 11, 2023 End: October 11, 2023 Licensed Home Inspector Relationship Specialty Start Date End Date [...] May 02, 2024 End: May 02, 2024 Licensed Home Inspector Relationship Specialty Start Date End Date Luisana Johnson MD [address] [place] [address] PCP - General 01/05/06 Pedro Pablo Cruz MD [address] [place] [address] Referring Infectious Diseases 05/07/24 Licensed Home Inspector Relationship Specialty Start Date End Date Luisana Johnson MD [address] [place] [address] PCP - General 01/05/06 Pedro Pablo Cruz MD [address] [place] [address] Referring Infectious Diseases 05/07/24 Licensed Home Inspector Relationship Specialty Start Date End Date Luisana Johnson MD [address] [place] [address] PCP - General 01/05/06 Pedro Pablo Cruz MD [address] [place] [address] Referring Infectious Diseases 05/07/24 Licensed Home Inspector Relationship Specialty Start Date End Date Wesley Long MD [address] [place] [address] PCP - General Family Medicine 05/17/24 Monster Calvillo NP [address] [place] [address] Nurse Practitioner Family Medicine 05/17/24 Licensed Home Inspector Relationship Specialty Start Date End Date Wesley Long MD [address] [place] [address] PCP - General Family Medicine 05/17/24 Monster Calvillo NP [address] [place] [address] Nurse Practitioner Family Medicine 05/17/24 Licensed Home Inspector Relationship Specialty Start Date End Date Wesley Logn MD [address] [place] [address] PCP - General Family Medicine 05/17/24 Monster Calvillo NP [address] [place] [address] Nurse Practitioner Family Medicine 05/17/24 Licensed Home Inspector Relationship Specialty Start Date End Date Wesley Long MD [address] [place] [address] PCP - General Family Medicine 05/17/24 Monster Calvillo NP [address] [place] [address] Nurse Practitioner Family Medicine 05/17/24 Licensed Home Inspector Relationship Specialty Start Date End Date Wesley Long MD [address] [place] [address] PCP - General Family Medicine 05/17/24 Monster Calvillo NP [address] [place] [address] Nurse Practitioner Family Medicine 05/17/24 Licensed Home Inspector Relationship Specialty Start Date End Date Wesley Long MD [address] [place] [address] PCP - General Family Medicine 05/17/24 Monster Calvillo NP [address] [place] [address] Nurse Practitioner Family Medicine 05/17/24 Licensed Home Inspector Relationship Specialty Start Date End Date Wesley Long MD [address] [place] [address] PCP - General Family Medicine 05/17/24 Monster Calvillo NP [address] [place] [address] Nurse Practitioner Family Medicine 05/17/24 Licensed Home Inspector Relationship Specialty Start Date End Date Wesley Long MD [address] [place] [address] PCP - General Family Medicine 05/17/24 Monster Calvillo NP [address] [place] [address] Nurse Practitioner Family Medicine 05/17/24 Licensed Home Inspector Relationship Specialty Start Date End Date Wesley Long MD [address] [place] [address] PCP - General Family Medicine 05/17/24 Monster Calvillo NP [address] [place] [address] Nurse Practitioner Family Medicine 05/17/24 Licensed Home Inspector Relationship Specialty Start Date End Date Wesley Long MD [address] [place] [address] PCP - General Family Medicine 05/17/24 Monster Calvillo NP [address] [place] [address] Nurse Practitioner Family Medicine 05/17/24 Licensed Home Inspector Relationship Specialty Start Date End Date Wesley Long MD [address] [place] [address] PCP - General Family Medicine 05/17/24 Monster Calvillo NP [address] [place] [address] Nurse Practitioner Family Medicine 05/17/24 Licensed Home Inspector Relationship Specialty Start Date End Date Wesley Long MD [address] [place] [address] PCP - General Family Medicine 05/17/24 Monster Calvillo NP [address] [place] [address] Nurse Practitioner Family Medicine 05/17/24 Licensed Home Inspector Relationship Specialty Start Date End Date Wesley Long MD [address] [place] [address] PCP - General Family Medicine 05/17/24 Monster Calvillo NP [address] [place] [address] Nurse Practitioner Family Medicine 05/17/24 Licensed Home Inspector Relationship Specialty Start Date End Date Wesley Long MD [address] [place] [address] PCP - General Family Medicine 05/17/24 Monster Calvillo NP [address] [place] [address] Nurse Practitioner Family Medicine 05/17/24 Licensed Home Inspector Relationship Specialty Start Date End Date Shaikh Denis MD [address] [place] [address] PCP - General Internal Medicine 10/17/23 Licensed Home Inspector Relationship Specialty Start Date End Date Shaikh Denis MD [address] [place] [address] PCP - General Internal Medicine 10/17/23 Licensed Home Inspector Relationship Specialty Start Date End Date Shaikh Denis MD [address] [place] [address] PCP - General Internal Medicine 10/17/23 Licensed Home Inspector Relationship Specialty Start Date End Date Wesley Long MD [address] [place] [address] PCP - General Family Medicine 05/17/24 Monster Calvillo NP [address] [place] [address] Nurse Practitioner Family Medicine 05/17/24 Licensed Home Inspector Relationship Specialty Start Date End Date Wesley Long MD [address] [place] [address] PCP - General Family Medicine 05/17/24 Monster Calvillo NP [address] [place] [address] Nurse Practitioner Family Medicine 05/17/24 Licensed Home Inspector Relationship Specialty Start Date End Date Wesley Long MD [address] [place] [address] PCP - General Family Medicine 05/17/24 Monster Calvillo NP [address] [place] [address] Nurse Practitioner Family Medicine 05/17/24 Licensed Home Inspector Relationship Specialty Start Date End Date Wesley Long MD [address] [place] [address] PCP - General Family Medicine 05/17/24 Monster Calvillo NP [address] [place] [address] Nurse Practitioner Family Medicine 05/17/24 Licensed Home Inspector Relationship Specialty Start Date End Date Wesley Long MD [address] [place] [address] PCP - General Family Medicine 05/17/24 Monster Calvillo NP [address] [place] [address] Nurse Practitioner Family Medicine 05/17/24 Licensed Home Inspector Relationship Specialty Start Date End Date Renny Hansen MD [address] [facility] [place] [address] PCP - General Internal Medicine 09/19/24 Team [...] September 25, 2024 End: September 25, 2024 Licensed Home Inspector Relationship Specialty Start Date End Date Renny Hansen MD [address] [place] [address] PCP - General Internal Medicine 09/19/24 Licensed Home Inspector Relationship Specialty Start Date End Date Renny Hansen MD [address] [place] [address] PCP - General Internal Medicine 09/19/24 Licensed Home Inspector Relationship Specialty Start Date End Date Renny Hansen MD [address] [place] [address] PCP - General Internal Medicine 09/19/24 Licensed Home Inspector Relationship Specialty Start Date End Date Renny Hansen MD [address] [place] [address] PCP - General Internal Medicine 09/19/24 Team [...] October 16, 2024 End: October 16, 2024 Licensed Home Inspector Relationship Specialty Start Date End Date Renny Hansen MD [address] [place] [address] PCP - General Internal Medicine 09/19/24 Licensed Home Inspector Relationship Specialty Start Date End Date Renny Hansen MD [address] [place] [address] PCP - General Internal Medicine 09/19/24 Team [...] October 29, 2024 Katharina Gale Tre , QUALITY IMPROVEMENT COORDINATOR (RN) Attending Provider Active Start: October Licensed Home Inspector Relationship Specialty Start Date End Date Renny Hansen MD [address] [place] [address] PCP - General Internal Medicine 09/19/24 Renny Hansen MD [address] [place] [address] PCP - Medical Leon MA 09/12/2409/11 Cindi Jenkins LSW Glove Tagger Family Medicine 11/06/24 Licensed Home Inspector Relationship Specialty Start Date End Date Renny Hansen MD [address] [place] [address] PCP - General Internal Medicine 09/19/24 Renny Hansen MD [address] [place] [address] PCP - Medical Leon MA 09/12/2409/11 Cindi Jenkins LSW Glove Tagger Family Medicine 11/06/24 Licensed Home Inspector Relationship Specialty Start Date End Date Renny Hansen MD [address] [place] [address] PCP - General Internal Medicine 09/19/24 Renny Hansen MD [address] [place] [address] PCP - Medical Leon [place] 09/12/2409/11 Cindi Jenkins, LIQUOR INSPECTOR Glove Tagger Family Medicine 11/06/24 Licensed Home Inspector Relationship Specialty Start Date End Date Renny Hansen MD [address] [place] [address] PCP - General Internal Medicine 09/19/24 Renny Hansen MD [address] [place] [address] PCP - Medical Leon [place] 09/12/2409/11 Lisa Ramirez LPN 12/05/24 Licensed Home Inspector Relationship Specialty Start Date End Date Renny Hansen MD [address] [place] [address] PCP - General Internal Medicine 09/19/24 Renny Hansen MD [address] [place] [address] PCP - Medical Leon MA 09/12/2409/11 Lisa Ramirez LPN 12/05/24 Licensed Home Inspector Relationship Specialty Start Date End Date Renny Hansen MD [address] [place] [address] PCP - General Internal Medicine 09/19/24 Renny Hansen MD [address] [place] [address] PCP - Medical Leon [place] 09/12/2409/11 Lisa Ramirez LPN 12/05/24 Licensed Home Inspector Relationship Specialty Start Date End Date Renny Hansen MD [address] [place] [address] PCP - General Internal Medicine 09/19/24 Renny Hansen MD [address] [place] [address] PCP - Medical Leon [place] 09/12/2409/11 Lisa Ramirez LPN 12/05/24 Licensed Home Inspector Relationship Specialty Start Date End Date Renny Hansen MD [address] [place] [address] PCP - General Internal Medicine 09/19/24 Renny Hansen MD [address] [place] [address] PCP - Medical Leon MA 09/12/2409/11 Lisa Ramirez LPN 12/05/24 Licensed Home Inspector Relationship Specialty Start Date End Date Renny Hansen MD [address] [place] [address] PCP - General Internal Medicine 09/19/24 Renny Hansen MD [address] [place] [address] PCP - Medical Leon MA 09/12/2409/11 Lisa Ramirez LPN [address] [place] [address] 12/05/24 Licensed Home Inspector Relationship Specialty Start Date End Date Renny Hansen MD [address] [place] [address] PCP - General Internal Medicine 09/19/24 Renny Hansen MD [address] [place] [address] PCP - Medical Leon MA 09/12/2409/11 Lisa Ramirez LPN [address] [place] [address] 12/05/24 Licensed Home Inspector Relationship Specialty Start Date End Date Renyn Hansen MD [address] [place] [address] PCP - General Internal Medicine 09/19/24 Renny Hansen MD [address] [place] [address] PCP - Medical Leon MA 09/12/2409/11 Lisa Ramirez LPN [address] [place] [address] 12/05/24 Licensed Home Inspector Relationship Specialty Start Date End Date Renny Hansen MD [address] [place] [address] PCP - General Internal Medicine 09/19/24 Renny Hansen MD [address] [place] [address] PCP - Medical Leon MA 09/12/2409/11 Lisa Ramirez LPN [address] [place] [address] 12/05/24 Licensed Home Inspector Relationship Specialty Start Date End Date Renny Hansen MD [address] [place] [address] PCP - General Internal Medicine 09/19/24 Renny Hansen MD [address] [place] [address] PCP - Medical Leon MA 09/12/2409/11 Lisa Ramirez LPN [address] [place] [address] 12/05/24 Team Status: Inactive Member Role Status Dates Renny Hansen II MD Primary Care Provider Active Start: May 03, 2025 End: May 03, 2025 THANG Buchanan Attending Provider Active Start: May 03, 2025 End: May 03, 2025 Team Status: Active Member Role Status Dates Renny Hansen II MD Primary Care Provider Active Start: May 03, 2025 Renny Hansen II MD Referring Provider Active S tart: May 03, 2025 Katharina Toledo APRN Attending Provider Acti ve Start: May 03, 2025 Goals (unrecognized section and content) Goals may be documented in a n alternate section Source Comments (unrecognize d section and content) In the event this informatio n is protected by the Federal Confidentiality of Alcohol and Drug Abuse Patient Records regulations: The Federal rules restrict any use of the information to criminally investigate or prosecute any alcohol or drug abuse patient.[facility] System[facility] the event this information is protected by the Federal Confidentiality of Alcohol and Drug Abuse Patient Records regulations: The Federal rules restrict any use of the information to criminally investigate or prosecute any alcohol or drug abuse patient.[facility] SystemIn the event this information is protected by the Federal Confidentiality of Alcohol and Drug Abuse Patient Records regulations: The Federal rules restrict any use of the information to criminally investigate or prosecute any alcohol or drug abuse patient.[facility] FOR RECORDS PERTAINING TO PATIENTS WHO ARE [...] BE BASED ON THE PRIMARY CLINICAL RECORDS. [facility] [employer] [facility]. provides no warranty or guarantee of the accuracy or completeness of information in this document.
[2025-05-20 12:27] VITALS: BP 147/78; PULSE 75; PULSE 99; O2SAT 96; O2SAT 99
[2025-05-20 12:28] VITALS: BP 186/79
[2025-05-20] MEDS: BUPIVACAINE HCL 0.25% PF 25 MG/10 ML VIAL 2 ML INJ (12:29)
[2025-05-20] MEDS: IOHEXOL 240 MG/ML - 10 ML VIAL 12 MG INJ (12:29)
[2025-05-20] MEDS: METHYLPREDNISOLONE ACETATE 40 MG/ML VIAL INJ (12:29)
[2025-05-20] MEDS: LIDOCAINE HCL 2% 400 MG/20 ML MDV INJ (12:29)
--- NOTE | 2025-05-20 12:30 | W.PM.PROCNOT ---
Date of procedure: 05/20/25 Pre-op diagnosis: Pain due to right sacroiliitis Post-op diagnosis: same as pre-op Procedure: Procedure: Right sacroiliac joint injection Medications: Bupivacaine 0.25% 3cc, depomedrol 40mg After informed consent was obtained, the patient was brought to the medical procedure unit and placed in the prone position, when a timeout was completed verifying correct patient, procedure, site, positioning, implant, and/or special equipment.? The skin overlying the area was prepped and draped in standard sterile fashion using alcohol.? A 25-gauge needle was inserted towards the right sacroiliac joint under direct fluoroscopic imaging.? Needle tip was advanced until the joint was encountered.? We instilled a total of 2 mL of solution.? Postoperatively needles were removed.? The patient tolerated the procedure well without complication.? The patient reported reduction in pain symptoms postoperatively. Anesthesia: Local Surgeon: Miguel Murphy Pathology: none sent Condition: stable Disposition: no change
== END 2025-05-20 12:36 | disposition home or self-care (01) ==
LOC: SURGOUT 11:25
PROVIDERS: PCP Internal Medicine; Visit Provider Anesthesiology
DX: M46.1 Sacroiliitis, not elsewhere classified (principal)
CPT/HCPCS: 27096; J0665; J1010; Q9966

== ENCOUNTER 2025-05-29 10:24 | Outpatient (OUT) | payer MEDICARE, SELFPAY ==
--- OUTSIDE RECORDS SUMMARY | 2025-05-15 11:00 | XMS_ITS | Encounter Summary ---
Author Organization [facility] Address [address] [place] [place] [address] Care Team Providers Care Cheese Weigher Name Role Phone Renny Hansen MD Primary Care Provider [phone] Balta Cardenas DO Unavailable [phone] Reason for Visit * Reason Comments Follow-up Redness in arm is st ill there. Stills achy and very painful. 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) Social History Tobacco Use Types Packs/Day Years Used Date Smoking Tobacco: Former Cigarettes - 1999 Smokeless Tobacco: Never Alcohol Use [...] Answer Date Recorded Patient Health Questionnaire-2 Score 1 05/15/2025 Comments Unknown Sex and Gender Information Value Date Recorded Sex Assigned at Female 05/15/2025 10:28 AM EDT Legal Sex Female 10:18 PM EDT Gender Identity Female 05/15/2025 10:28 AM EDT Sexual Orientation Heterosexual or Straight 11/2024 10:28 AM EDT documented as of this encounter Last Filed Vital Signs Vital Sign Reading Time Taken Comments Blood Pressure 143/76 05/15/2025 10:32 AM EDT Pulse 60 05/15/2025 10:32 AM EDT Temperature 36.9 C (98.4 F) 05/15/2025 10:32 AM EDT Respiratory Rate - - Oxygen Saturation - - Inhaled Oxygen Concentration - - Weight 97.5 kg (215 lb) 05/15/2025 10:32 AM EDT Height 149.9 cm (4' 11 ) 05/15/2025 10:32 AM EDT Body Mass Index 43.42 05/15/2025 10:32 AM EDT documented in this encounter Functional Status documented as of this encounter Progress Notes * Ortega Hines MD - 05/15/2025 11:00 AM EDT Images from the original [...] After that, she says that her left shoulderpain has diminished and her range of movement is slowly improved. Review of Systems Constitutional: Negative for chills, fatigue and fever. Respiratory: Negative for cough and shortness of breath. Cardiovascular: Negative for chest pain. Gastrointestinal: Negative for abdominal pain, diarrhea, nausea and vomiting. Musculoskeletal: Positive for arthralgias. Skin: Negative for rash. Hematological: Negative for adenopathy. Objective Physical Exam Vitals reviewed. Constitutional: Appearance: [...] Left lower leg: No edema. Comments: Left shoulder: slight erythema; decreased ROM; no calor, no dolor, no tumor, no [...] (H) 01/17/2025 Lab Results Component Value Date SEDRATE 96 (H) 11/27/2024 Assessment/Plan 79 y.o. female 79-year-old woman with [...] and she has no signs or symptoms ofendocarditis or endovascular infection. She does not want to have any surgery if she does not need it. Overall, she has slowly improved with this oral regimen. Her C-reactive protein has improved. She is tolerating oral penicillin. Plan: Decrease penicillin to 500 mg 2 times daily for chronic lifelong suppression Repeat labs today Follow-up in 3 months documented in this encounter Plan of Treatment Upcoming Encounters Date Type Department Care Team (Late st Contact Info) Description 07/10/2025 1:40 PM EDT Office Visit [facility] [address] [place] [address] Kellie Alva MD [address] [place] [address] 11/13/2025 11:00 AM EST Follow-Up [facility] [address] [place] [address] Ortega Hines MD [address] [facility] [place] [address] Scheduled Orders Name Type Priority Associated Diagnoses Orde r Schedule C-reactive protein Lab Routine 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
--- OUTSIDE RECORDS SUMMARY | 2025-05-16 11:00 | XMS_ITS | Encounter Summary ---
Author Organization [facility] Address [address] [facility] [place] [address] Care Team Providers Care Clip And Hanger Attacher Name Role Phone Renny Hansen MD Primary Care Provider [phone] Renny Hansen MD Unavailable [phone] Lisa Ramirez LPN Unavailable Reason for Visit * Reason Comments Congestive Heart Failure Restless Legs Encounter Details Date Type Department Care Team (Late st Contact Info) Description 05/16/2025 11:00 AM EDT Office Visit [facility] [place] [facility] [address] [facility] [address] [place] [address] Renny Hansen MD [address] [facility] [address] [place], [place] [id number] RLS (restless legs syndrome) Social History Tobacco Use Types Packs/Day Years [...] How often do you attend chur or temple services? Patient declined 11/12/2024 Do you belong to any clubs o r organizations such as yazidism groups, unions, fraternal or athletic groups, or [...] Date Recorded Patient Health Questionnaire-2 Score 0 05/16/2025 [facility] - Occupational [...] Reading Time Taken Comments Blood Pressure 128/72 05/16/2025 10:58 AM EDT Pulse 67 05/16/2025 10:58 AM EDT Temperature - - Respiratory Rate - - Oxygen Saturation 96% 05/16/2025 10:58 AM EDT Inhaled Oxygen Concentration - - Weight 102 kg (225 lb) 05/16/2025 10:58 AM EDT Height 144.8 cm (4' 9 ) 05/16/2025 10:58 AM EDT Body Mass Index 48.69 05/16/2025 10:58 AM EDT documented in this encounter Functional Status * Over the past 2 weeks, how often have you been bothered by any of the following problems? Question Answer Date of Assessment Author Little interest or pleasure in doing things Not at all 05/16/2025 11:00 AM EDT Carlene Yan L PN Feeling down, depressed, or hopeless Not at all 05/16/2025 11:00 AM EDT Carlene Yan L PN Patient Health Questionnaire -2 Score 0 05/16/2025 11:00 AM EDT Carlene Yan L PN documented as of this encounter Plan of Treatment Upcoming Encounters Date Type Department Care Team (Late st Contact Info) Description 07/18/2025 11:30 AM EST Office Visit [facility] [place] [facility] [address] [place] [address] [place] [address] Renny Hansen MD [address] [facility] [address] [place] [address] documented as of this encounter Visit Diagnoses Diagnosis RLS (restless legs syndrome) Restless legs syndrome (RLS) documented in this encounter Additional Health Concerns Assessment Noted Time PHQ-9 Depression Total Score: 1 09/06/20 23 2:00 PM EST documented as of this encounter Care Teams Clip And Hanger Attacher Relationship Specialty Start Date End Date Renny Hansen MD [address] [facility] [address] [place] [address] PCP - General Internal Medicine 09/19/24 Renny Hansen MD [address] [facility] [address] [place] [address] PCP - Medical [place] 09/12/2409/11 Lisa Ramirez LPN [address] [facility] [address] [place] [address] 12/05/24 documented as of this encounter
--- OUTSIDE RECORDS SUMMARY | 2025-05-29 10:26 | XMS_ITS | Encounter Summary ---
Author Organization [facility] Address [address] [facility] [place] [address] Care Team Providers Care Lead Assembler Name Role Phone Renny Hansen MD Primary Care Provider [phone] Renny Hansen MD Unavailable [phone] Lisa Ramirez LPN Unavailable Encounter Details Date Type Department Care Team (Late st Contact Info) Description 05/07/2025 Abstract [facility] [place] [facility] [address] [facility] 110 [place] [address] Renny Hansen MD 112 [facility] 110 [place] [address] Social History Tobacco Use Types Packs/Day Years [...] Recorded Patient Health Questionnaire-2 Score 0 04/24/2025 [facility]at ional [facility] [...] [place] Zendejas [address] [place] [address] Renny Hansen MD [address] [place] [address] documented as of this encounter Visit Diagnoses Not on filedocumented in this encounter Additional Health Concerns Assessment Noted Time PHQ-9 Depression Total Score: 1 09/06/20 23 2:00 PM EST documented as of this encounter Care Teams Lead Assembler Relationship Specialty Start Date End Date Renny Hansen MD [address] [facility] 110 [place] [address] PCP - General Internal Medicine 09/19/24 Renny Hansen MD [address] [facility] 110 [place] [address] PCP - Medical [facility] 09/12/2409/11 Lisa Ramirez LPN [address] [facility] 110 [place] [address] 12/05/24 documented as of this encounter
--- OUTSIDE RECORDS SUMMARY | 2025-05-29 10:26 | XMS_ITS | Encounter Summary ---
Author Organization [facility] Address [address] [place] [address] Care Team Providers Care Technology Consultant Name Role Phone Shaikh BEREKET Denis Primary Care Provider [phone] Jazmín Calvillo CASH VAN SALESPERSON Unavailable [phone] Renny Hansen MD Primary Care Provider [phone] Renny Hansen MD Unavailable [phone] Cindi Jenkins LEATHER CRAFTSMAN Unavailable [phone] Lisa Ramirez POOL MANAGER Unavailable Encounter Details Date Type Department Care Team (Late st Contact Info) Description 05/02/2024 External Result Encounter [facility] External Department Unsolicited Scott Cruz, PA [address] [facility] [place] [address] Social History Tobacco Use Types Packs/Day Years [...] week 08/30/2023 How often do you attend moravian or samaritan serv ices? Patient declined 08/30/2023 Do you belong to any clubs o r organizations such as moravian groups, unions, fraternal or athletic groups, or [...] Recorded Patient Health Questionnaire-2 Score 0 04/11/2024 [facility] of Occupat ional [...] 11:30 AM EST Office Visit [facility] [place] [facility] 112 [facility] 110 [place] [address] Renny Hansen MD 112 [facility] 110 [place] [address] documented as of this encounter Procedures Procedure [...] plain film imaging. Impression dictated by: Etienne Rhdoes M.D.05/02/2024 2:44 PM Dictation Location: [place] [address] Transcribed By: [facility] 05/02/24 1444 Dictated By: Etienne Rhodes DO 05/02/24 1440 Signed By: <Electronically signed by Etienne Rhodes DO in OV> 05/02/24 1444 Narrative 05/02/2024 2:46 PM EDT [facility] [place] [address] Nuclear Medicine Report Signed Patient: Breann Starks MR#: [id number] : 1945 Acct:[id number] Age/Sex: 78 / F ADM Date: 05/02/24 Loc: [place] Room: Type: [facility] Attending Dr: Scott Cruz PA-C Copies [...] bone 3 phase Procedure Note Radiology, Radiologist, - 05/02/2024 [place] [address] Nuclear Medicine Report Signed Patient: Breann Starks TMR#: [id number] : 8Acct:[id number] Age/Sex: 78 / FADM Date: 05/02/24 Loc: [place] Room:Type: [facility] Attending Dr: Scott Cruz PA-C Copies [...] may be degenerative. Plain film correlation. Nohyperemia. NM/NM bone 3 phase IMPRESSION: Increased uptake of the left the glenoid. There may be concern forloosening. Correlate with plain film imaging. Increased uptake of the left acromion.May represent degenerative change. Fracture may be present in this region. Correlatewith plain film imaging. Impression dictated by: Eitenne Rhodes M.D.05/02/2024 2:44 PM Dictation Location: [place] [address] Transcribed By: [facility] 05/02/24 1444 Dictated By: Etienne Rhodes DO 05/02/24 1440 Signed By: <Electronically signed by Etienne Rhodes DO in OV> 05/02/24 1444 us Scott SANTOS [employer] [place] PROCEDURES Final Resul t documented in this encounter Visit Diagnoses Not on filedocumented in this encounter Additional Health Concerns Assessment Noted Time PHQ-9 Depression Total Score: 1 09/06/20 23 2:00 PM EST documented as of this encounter Care Teams Technology Consultant Relationship Specialty Start Date End Date Shaikh Denis MD [address] [place] [address] PCP - General Internal Medicine 10/17/23 05/16/24 Renny Hansen MD [address] [facility] 110 [place] [address] PCP - General Internal Medicine 09/19/24 Renny Hnasen MD [address] [facility] 110 [place] [address] PCP - Medical [facility] 09/12/2409/11 Jazmín Calvillo NP [address] [facility] [place] [address] Nurse Practitioner Family Medicine 05/17/24 09/18/24 Cindi Jenkins, GIDEON [address] [place] [address] Impregnator Electrolytic Capacitors Family Medicine 11/06/24 12/05/24 Lisa Ramirez LPN [address] [facility] 110 [place] [address] 12/05/24 documented as of this encounter
--- OUTSIDE RECORDS SUMMARY | 2025-05-29 10:26 | XMS_ITS | Encounter Summary ---
Author Organization [facility] Address [address] [facility] [place] [address] Care Team Providers Care Book Jacket Cover Machine Operator Name Role Phone Renny Hansen MD Primary Care Provider [phone] Renny Hansen MD Unavailable Lisa Ramirez LPN Unavailable Encounter Details Date Type Department Care Team (Late st Contact Info) Description 05/06/2025 Abstract [facility] [place] [facility] [address] [facility] 110 [place] [address] Renny Hansen MD 112 [facility] 110 [place] [address] Social History Tobacco Use Types Packs/Day Years [...] Recorded Patient Health Questionnaire-2 Score 0 04/24/2025 [facility] of Occupat ional Health [...] any time in the past 12 m [facility], were you homeless or living [...] Zendejas [address] [place] [address] Renny Hansen MD [address] [place] [address] documented as of this encounter Visit Diagnoses Not on filedocumented in this encounter Additional Health Concerns Assessment Noted Time PHQ-9 Depression Total Score: 1 09/06/20 23 2:00 PM EST documented as of this encounter Care Teams Book Jacket Cover Machine Operator Relationship Specialty Start Date End Date Renny Hansen MD [address] [facility] 110 [place] [address] PCP - General Internal Medicine 09/19/24 Renny Hansen MD [address] [facility] 110 [place] [address] PCP - Medical [facility] 09/12/2409/11 Lisa Ramirez LPN [address] [facility] 110 [place] [address] 12/05/24 documented as of this encounter
--- OUTSIDE RECORDS SUMMARY | 2025-05-29 10:26 | XMS_ITS | Encounter Summary ---
Author Organization [facility] Address [address] [facility] [place] [address] Care Team Providers Care Residential Field Manager Name Role Phone Renny Hansen MD Primary Care Provider [phone] Renny Hansen MD Unavailable Lisa Ramirez LPN Unavailable Encounter Details Date Type Department Care Team (Late st Contact Info) Description 05/16/2025 Bamboo flowsheet [facility] [place] [facility] [address] [facility] 110 [place] [address] Renny Hansen MD 112 [facility] 110 [place] [address] Social History Tobacco Use Types Packs/Day Years [...] How often do you attend chur or church services? Patient declined 11/12/2024 Do you belong [...] Recorded Patient Health Questionnaire-2 Score 0 05/16/2025 [facility] of Occupat ional Health - Occupational Stress [...] any time in the past 12 m ont, were you homeless or living in a [...] Visit [facility] [place] Zendejas [address] [facility] [address] [place] [address] Renny Hansen MD [address] [facility] 110 [place] [address] documented as of this encounter Visit Diagnoses Not on filedocumented in this encounter Additional Health Concerns Assessment Noted Time PHQ-9 Depression Total Score: 1 09/06/20 23 2:00 PM EST documented as of this encounter Care Teams Residential Field Manager Relationship Specialty Start Date End Date Renny Hansen MD 112 [facility] 110 [place] [address] PCP - General Internal Medicine 09/19/24 Renny Hansen MD 112 [facility] 110 [place] [address] PCP - Medical [place] 09/12/2409/11 iLsa Ramirez LPN [address] [address] 12/05/24 documented as of this encounter
--- OUTSIDE RECORDS SUMMARY | 2025-05-29 10:26 | XMS_ITS | Encounter Summary ---
Author Organization [facility] Address [address] [facility] [address] Care Team Providers Care Computer Programming Manager Name Role Phone Renny Hansen MD Primary Care Provider [phone] Renny Hansen MD Unavailable [phone] Lisa Ramirez LPN Unavailable Encounter Details Date Type Department Care Team (Late st Contact Info) Description 05/08/2025 Abstract [facility] [place] [facility] [address] [facility] 110 [place] [address] Renny Hansen MD 112 [facility] 110 [place] [address] Social History Tobacco Use Types Packs/Day Years [...] How often do you attend chur or taoist services? Patient declined 11/12/2024 Do [...] Recorded Patient Health Questionnaire-2 Score 0 04/24/2025 [facility] of Occupat ional Health - [...] Zendejas [address] [place] [address] Renny Hansen MD [address] [place] [address] documented as of this encounter Visit Diagnoses Not on filedocumented in this encounter Additional Health Concerns Assessment Noted Time PHQ-9 Depression Total Score: 1 09/06/20 23 2:00 PM EST documented as of this encounter Care Teams Computer Programming Manager Relationship Specialty Start Date End Date Renny Hansen MD [address] [facility] 110 [place] [address] PCP - General Internal Medicine 09/19/24 Renny Hansen MD [address] [facility] 110 [place] [address] PCP - Medical [facility] 09/12/2409/11 Lisa Ramirez LPN [address] [facility] 110 [place] [address] 12/05/24 documented as of this encounter
--- OUTSIDE RECORDS SUMMARY | 2025-05-29 10:27 | XMS_ITS | Encounter Summary ---
Author Organization [facility] Address [address] [facility] [place] [address] Care Team Providers Care Tip Puncher Name Role Phone Jazmín Calvillo THERMIT WELDING MACHINE OPERATOR Unavailable Renny Hansen MD Primary Care Provider [phone] Renny Hansen MD Unavailable [phone] Cindi Jenkins CROSS COUNTRY/TRACK AND FIELD COACH Unavailable [phone] Lisa Ramirez SANITATION SUPERINTENDENT Unavailable Reason for Referral * Consultation (Routine) - Closed Specialty Diagnoses / Procedures Referred By Millie egan Referred To Contact Neurology Diagnoses Neck pain on left side Procedures [place] OFFICE/OUTPATIENT NEW HIGH MDM 60 MINUTES Renyn Hansen MD 112 [facility] 110 [place] [address] Phone: tel: fax: Wil Lord MD Phone: tel: fax: Referral ID Status Reason Start Date Expiration Date V isits Requested Visits Authorized [id number] Closed Specialty Services Required 09/13/2024 03/12/2025 1 1 Encounter Details Date Type Department Care Team (Late st Contact Info) Description 09/13/2024 Abstract [facility] [place] [facility] [address] [facility] 110 [place] [address] Renny Hansen MD [address] [facility] 110 [place], [place] [address] Neck pain on left side Social History [...] How often do you attend amish or congregational serv ices? Patient declined 08/30/2023 Do you belong to any clubs o r organizations such as amish groups, unions, fraternal [...] Recorded Patient Health Questionnaire-2 Score 0 05/31/2024 [facility] of Occupat ional Health - Occupational Stress [...] 07/18/2025 11:30 AM EST Office Visit [facility] [place] [facility] [address] [place] [address] [place] [address] Renny Hansen MD [address] [facility] 110 [place] [address] Scheduled Referrals Name Type Priority Associated Diagnoses [...] documented as of this encounter Care Teams Tip Puncher Relationship Specialty Start Date End Date Renny Hansen MD [address] [facility] 110 [place] [address] PCP - General Internal Medicine 09/19/24 Renny Hansen MD 112 [facility] 110 [place] [address] PCP - Medical [place] 09/12/2409/11 Jazmín Calvillo NP Nurse Practitioner Family Medicine 05/17/24 09/18/24 Cindi Jenkins, GIDEON [address] [place] [address] Laundry Operator Finishing Family Medicine 11/06/24 12/05/24 Lisa Ramirez LPN [address] [facility] 110 [place] [address] 12/05/24 documented as of this encounter
--- OUTSIDE RECORDS SUMMARY | 2025-05-29 10:27 | XMS_ITS | Encounter Summary ---
Author Organization [facility] Address [address] [place] [address] Care Team Providers Care Assistant Statistician Name Role Phone Renny Hansen MD Primary Care Provider [phone] Renny Hansen MD Unavailable Lisa Ramirez LPN Unavailable Encounter Details Date Type Department Care Team (Late st Contact Info) Description 01/03/2025 External Result Encounter NOMS External Department Unsolicited Juan Monahan, DO [address] [place] [address] Social History Tobacco Use Types Packs/Day Years [...] Recorded Patient Health Questionnaire-2 Score 0 10/17/2024 [facility] of Occupat ional Health - Occupational [...] Visit [facility] [place] Zendejas [address] [facility] 110 [place] [address] Renny Hansen MD [address] [facility] 110 [place] [address] documented as of this encounter Procedures Procedure [...] Dimitrios Blanco M.D.01/03/2025 3:42 PM Dictation Location: [facility] Tech: Ghazal Wilson Transcribed By: STAR 01/03/25 1542 Dictated By: Dimitrios Blanco MD 01/03/25 1532 Signed By: <Electronically signed by Dimitrios Blanco MD in OV> 01/03/25 1542 Narrative 01/03/2025 3:44 PM EDT [facility] Main [place] [address] [place] [address] Ultrasound Report Signed Patient: Breann Starks MR#: [id number] : 1945 Acct:[id number] Age/Sex: 79 / F ADM Date: 01/03/25 Loc: Room: Type: [facility] RCR Attending Dr: Katharina Toledo APRN [...] Note Radiology, Radiologist, - 01/03/2025 [facility] Main [place] [address] [place] [address] Ultrasound Report Signed Patient: Breann Starks TMR#: [id number] : 8Acct:[id number] Age/Sex: 79 / FADM Date: 01/03/25 Loc: XT [facility] Dr: Katharina Toledo APRN Ordering Provider: [...] Dimitrios Blanco M.D.01/03/2025 3:42 PM Dictation Location: [facility] Tech: Ghazal Wilson Transcribed By: [...] as of this encounter Care Teams Assistant Statistician Relationship Specialty Start Date End Date Renny Hansen MD [address] [place] [address] [place] [address] PCP - General Internal Medicine 09/19/24 Renny Hansen MD [address] [place] [address] [place] [address] PCP - Medical [facility] 09/12/2409/11 Lisa Ramirez LPN [address] [place] [address] [place] [address] 12/05/24 documented as of this encounter
--- OUTSIDE RECORDS SUMMARY | 2025-05-29 10:27 | XMS_ITS | Encounter Summary ---
Author Organization [facility] Address [address] [facility] [place] [address] Care Team Providers Care Hog Room Supervisor Name Role Phone Renny Hansen MD Primary Care Provider [phone] Renny Hansen MD Unavailable [phone] Cindi Jenkins RUBBER GOODS SUPERVISOR Unavailable [phone] Lisa Ramirez AMORTIZATION CLERK Unavailable Encounter Details Date Type Department Care Team (Late st Contact Info) Description 10/03/2024 Orders Only [facility] [place] [facility] [address] [place] [address] [place] [address] Carlene Yan LPN [address] [place] [address] Nausea Social History Tobacco Use Types Packs/Day [...] How often do you attend taoism or alevism serv ices? Patient declined 08/30/2023 [...] Recorded Patient Health Questionnaire-2 Score 0 05/31/2024 [facility] of Occupat ional Health [...] [facility] [place] Zendejas [address] [facility] 110 [place] [address] Renny Hansen MD [address] [facility] 110 [place] [address] documented as of this encounter Visit Diagnoses Diagnosis Nausea Nausea alone documented in this encounter Additional Health Concerns Assessment Noted Time PHQ-9 Depression Total Score: 1 09/06/20 23 2:00 PM EST documented as of this encounter Care Teams Hog Room Supervisor Relationship Specialty Start Date End Date Renny Hansen MD [address] [facility] 110 [place] [address] PCP - General Internal Medicine 09/19/24 Renny Hansen MD [address] [facility] 110 [place] [address] PCP - Medical [place] 09/12/2409/11 Cindi Jenkins, RUBBER GOODS SUPERVISOR [address] [place] [address] Dispensing Optician Family Medicine 11/06/24 12/05/24 Lisa Ramirez LPN 112 [facility] 110 [place] [address] 12/05/24 documented as of this encounter
--- OUTSIDE RECORDS SUMMARY | 2025-05-29 10:27 | XMS_ITS | Encounter Summary ---
Author Organization [facility] Address [address] [facility] [place] [address] Care Team Providers Care Senior Marketing Coordinator Name Role Phone Renny Hansen MD Primary Care Provider [phone] Renny Hansen MD Unavailable [phone] Lisa Ramirez LPN Unavailable Encounter Details Date Type Department Care Team (Late st Contact Info) Description 01/04/2025 Abstract [facility] [place] [facility] [address] [facility] 110 [place] [address] Renny Hansen MD 112 [facility] 110 [place] [address] Social History Tobacco Use Types Packs/Day Years [...] How often do you attend chur or worship services? Patient declined 11/12/2024 Do you belong [...] 10/17/2024 [facility] of Occupat ional [...] any time in the past 12 m [facility], were you homeless or living in [...] Zendejas [address] [place] [address] [place] [address] Renny Hansen MD [address] [place] [address] [place] [address] documented as of this encounter Visit Diagnoses Not on filedocumented in this encounter Additional Health Concerns Assessment Noted Time PHQ-9 Depression Total Score: 1 09/06/20 23 2:00 PM EST documented as of this encounter Care Teams Senior Marketing Coordinator Relationship Specialty Start Date End Date Renny Hansen MD [address] [facility] 110 [place] [address] PCP - General Internal Medicine 09/19/24 Renny Hansen MD [address] [facility] 110 [place] [address] PCP - Medical [facility] 09/12/2409/11 Lisa Ramirez LPN [address] [facility] 110 [place] [address] 12/05/24 documented as of this encounter
--- OUTSIDE RECORDS SUMMARY | 2025-05-29 10:27 | XMS_ITS | Encounter Summary ---
Author Organization [facility] Address [address] [facility] [place] [address] Care Team Providers Care Police Reserves Commander Name Role Phone Shaikh BEREKET Denis Primary Care Provider [phone] Jazmín Calvillo BINDERY MACHINE OPERATOR Unavailable [phone] Renny Hansen MD Primary Care Provider [phone] Renny Hansen MD Unavailable [phone] Cindi Jenkins DOOR PERSON Unavailable [phone] Lisa Ramirez CONCESSION MANAGER Unavailable Encounter Details Date Type Department [...] How often do you attend episcopalian or hindu serv ices? Patient declined 08/30/2023 Do you [...] Patient Health Questionnaire-2 Score 0 11/07/2023 [facility] of Occupat ional [...] EST Office Visit [facility] [place] Zendejas 112 [facility] 110 [place] [address] Renny Hansen MD 112 [facility] 110 [place] [address] documented as of this encounter Procedures Procedure Name Priority Date/Time Associated Diagnosis Comments XR DEXA AXIAL SKELETON 12/12/2023 1:46 PM EDT documented in this encounter Results * XR DEXA AXIAL SKELETON (12/12/2023 1:46 PM EDT) Anatomical Region Laterality Modality Other 12/12/2023 1:46 PM EDT Narrative 12/12/2023 1:48 PM EDT The [address] [address] XRay Report Signed Patient: MAXIMUS STARKS MR#: [id number] : 1945 Acct:[id number] Age/Sex: 78 / F ADM Date: 12/12/23 Loc: RAD Attending Dr: Renée Barry NP Ordering Physician: Renée Barry NP Date of Service: 12/12/23 Procedure(s): XR DEXA axial skeleton Accession Number(s): [id number] cc: Shaikh Magui Denis; Renée Barry NP The [place] [address] Patient Name: MAXIMUS STARKS MRN: [id number] date: 1945 Sex: F Assigned Patient Location: RAD Current Patient Location: RAD Accession/Order Number: [id number] Exam Date: 12/12/2023 12:57 Report Date: 12/12/2023 [...] Signed By: 12/12/23 1348 DD/ 1346 TD/TT: Offset Printing Pressmen: Procedure Note Radiology, Radiologist, MD - 12/15/2023 [place] [address] XRay Report Signed Patient: MAXIMUS STARKS TMR#: [id number] : 8Acct:[id number] Age/Sex: 78 / FADM Date: 12/12/23 Loc: RAD Attending Dr: Renée Barry BINDERY MACHINE OPERATOR Ordering Physician: Renée Barry NP Date of Service: 12/12/23 Procedure(s): XR DEXA axial skeleton Accession Number(s): [id number] cc: Shaikh Magui Denis; Renée Barry NP [place] [id number] Patient Name: MAXIMUS STARKS MRN: [facility]:[id number] date: 1945 Sex: F Assigned Patient Location: RAD Current Patient Location: RAD Accession/Order Number: [id number] Exam Date: 12/12/2023 12:57 Report Date: 12/12/2023 [...] M.D. Signed By:12/12/23 1348 DD/ 1346 TD/TT: Offset Printing Pressmen: us Generic External Data Provider [facility] Final Result documented in this encounter Visit Diagnoses Not on filedocumented in this encounter Additional Health Concerns Assessment Noted Time PHQ-9 Depression Total Score: 1 09/06/20 23 2:00 PM EST documented as of this encounter Care Teams Police Reserves Commander Relationship Specialty Start Date End Date Shaikh Denis MD [address] [place] [address] PCP - General Internal Medicine 10/17/23 05/16/24 Renny Hansen MD [address] [facility] 110 [place] [address] PCP - General Internal Medicine 09/19/24 Renny Hansen MD [address] [facility] 110 [place] [address] PCP - Medical [facility] 09/12/2409/11 Jazmín Calvillo NP [address] [place] [address] Nurse Practitioner Family Medicine 05/17/24 09/18/24 Cindi Jenkins, GIDEON [address] [place] [address] Wind Power Project Manager Family Medicine 11/06/24 12/05/24 Lisa Ramirez LPN [address] [address] 12/05/24 documented as of this encounter
--- OUTSIDE RECORDS SUMMARY | 2025-05-29 10:27 | XMS_ITS | Encounter Summary ---
Author Organization [facility] Address [address] [facility] [place] [address] Care Team Providers Care Assistant Media Buyer Name Role Phone Renny Hansen MD Primary Care Provider [phone] Renny Hansen MD Unavailable [phone] GregoryCindi RETURNED GOODS RECEIVING CLERK Unavailable [phone] Lisa Ramirez AUTOMOTIVE TIRE TESTING SUPERVISOR Unavailable Encounter Details Date Type Department Care Team (Late st Contact Info) Description 09/26/2024 [facility] 112 [facility] 110 [place] [address] Renny Hansen MD 112 [facility] 110 [place] [address] Social History Tobacco Use Types Packs/Day Years [...] How often do you attend gnosticism or church serv ices? Patient declined 08/30/2023 Do you belong to any clubs o r organizations such as gnosticism groups, unions, fraPWRF or athletic groups, or school groups? Yes [...] Recorded Patient Health Questionnaire-2 Score 0 05/31/2024 [facility] - Occupational [...] [facility] 110 [place] [address] Renny Hansen MD [address] [facility] 110 [place] [address] documented as of this encounter Visit Diagnoses Not on filedocumented in this encounter Additional Health Concerns Assessment Noted Time PHQ-9 Depression Total Score: 1 09/06/20 23 2:00 PM EST documented as of this encounter Care Teams Assistant Media Buyer Relationship Specialty Start Date End Date Renny Hansen MD [address] [facility] 110 [place] [address] PCP - General Internal Medicine 09/19/24 Renny Hansen MD [address] [facility] 110 [place] [address] PCP - Medical [place] 09/12/2409/11 Cindi Jenkins, GIDEON [address] [place] [address] Senior Ux Developer Family Medicine 11/06/24 12/05/24 Lisa Ramirez LPN 112 [facility] 110 [place] [address] 12/05/24 documented as of this encounter
--- OUTSIDE RECORDS SUMMARY | 2025-05-29 10:27 | XMS_ITS | Encounter Summary ---
Author Organization [facility] Address [address] [place] [address] Care Team Providers Care Mine Development Engineer Name Role Phone Shaikh BEREKET Denis Primary Care Provider [phone] Shaikh BEREKET Denis Primary Care Provider [phone] Jazímn Calvillo TIME STUDY STATISTICIAN Unavailable [phone] Renny Hansen MD Primary Care Provider [phone] Renny Hansen MD Unavailable [phone] Cindi Jenkins GAS PROVER Unavailable [phone] Lisa Ramirez CONTACT CLERK Unavailable Encounter Details Date Type Department Care Team (Late st Contact Info) Description 09/07/2023 Abstract [facility] [place] [facility] [address] [place] [address] Shaikh Denis MD [address] [place] [address] Social History Tobacco Use Types Packs/Day Years [...] How often do you attend confucianism or faith serv ices? Patient declined 08/30/2023 Do you [...] Recorded Patient Health Questionnaire-2 Score 0 09/06/2023 [facility] of Occupat ional Health - Occupational Stress [...] EST Office Visit [facility]S [place] Zendejas 112 [facility] 110 [place] [address] Renny Hansen MD 112 [facility] 110 [place] [address] documented as of this encounter Visit Diagnoses Not on filedocumented in this encounter Additional Health Concerns Assessment Noted Time PHQ-9 Depression Total Score: 1 09/06/20 23 2:00 PM EST documented as of this encounter Care Teams Mine Development Engineer Relationship Specialty Start Date End Date Shaikh Denis MD PCP - General Internal Medicine 04/05/23 10/16/23 Shaikh Denis MD [address] [place] [address] PCP - General Internal Medicine 10/17/23 05/16/24 Renny Hansen MD [address] [facility] 110 [place] [address] PCP - General Internal Medicine 09/19/24 Renny Hansen MD [address] [facility] 110 [place] [address] PCP - Medical [facility] 09/12/2409/11 Jazmín Calvillo NP [address] [place] [address] Nurse Practitioner Family Medicine 05/17/24 09/18/24 Cindi Jenkins, GIDEON [address] [place] [place] [address] Senior Mobile Solutions Architect Family Medicine 11/06/24 12/05/24 Lisa Ramirez LPN [address] [place] [address] 12/05/24 documented as of this encounter
--- OUTSIDE RECORDS SUMMARY | 2025-05-29 10:27 | XMS_ITS | Clinical Summary ---
Author Organization [facility] Address [address] [facility] [place] [address] Phone Care Team Providers Care Button Cutting Machine Operator Name Role Phone Unavailable Primary Care [...]
--- OUTSIDE RECORDS SUMMARY | 2025-05-29 10:27 | XMS_ITS | Encounter Summary ---
Author Organization [facility] Address [address] [facility] [place] [address] Care Team Providers Care Director Network Development Name Role Phone Renny Hansen MD Primary Care Provider Renny Hansen MD Unavailable [phone] GregoryCindi ADVANCED SOLUTIONS ARCHITECT Unavailable [phone] Lisa Ramirez ESCAPEMENT MAKER Unavailable Encounter Details Date Type Department Care Team (Late st Contact Info) Description 10/30/2024 Abstract [facility] [place] [facility] 112 [facility] 110 [place] [address] Renny Hansen MD 112 [facility] 110 [place] [address] Social History Tobacco Use Types Packs/Day Years [...] file 10/10/2024 How often do you attend hindu or mosque serv ices? Patient declined 10/10/2024 Do you [...] in the past 12 m [facility], were you homeless or living in a [...] EST Office Visit [facility] [place] Zendejas 112 [facility] 110 [place] [address] Renny Hansen MD 112 [facility] [address] [place] [id number] documented as of this encounter Visit Diagnoses Not on filedocumented in this encounter Additional Health Concerns Assessment Noted Time PHQ-9 Depression Total Score: 1 09/06/20 23 2:00 PM EST documented as of this encounter Care Teams Director Network Development Relationship Specialty Start Date End Date Renny Hansen MD [address] [facility] 110 [place] [address] PCP - General Internal Medicine 09/19/24 Renny Hansen MD [address] [facility] 110 [place] [address] PCP - Medical [place] 09/12/2409/11 Cindi Jenkins, GIDEON [address] [place] [address] Sweeper Driver Family Medicine 11/06/24 12/05/24 Lisa Ramirez LPN [address] [facility] 110 [place] [address] 12/05/24 documented as of this encounter
--- OUTSIDE RECORDS SUMMARY | 2025-05-29 10:27 | XMS_ITS | Encounter Summary ---
Author Organization [facility] Address [address] [place] [address] Care Team Providers Care Senior Java Developer Name Role Phone Jazmín Calvillo LOAN COUNSELOR Unavailable [phone] Renny Hansen MD Primary Care Provider [phone] Renny Hansen MD Unavailable [phone] Cindi Jenkins SLUNK SKIN CURER Unavailable [phone] Lisa Ramirez DIRECTOR SPORTS Unavailable Encounter Details Date Type Department Care Team (Late st Contact Info) Description 07/24/2024 Abstract [facility] [place] [facility] [address] [place] [address] Wesley Long MD [address] [place] [address] Social History Tobacco Use Types Packs/Day Years [...] week 08/30/2023 How often do you attend muslim or sabianism serv ices? Patient declined 08/30/2023 [...] Recorded Patient Health Questionnaire-2 Score 0 05/31/2024 [facility] of Occupat ional Health - Occupational [...] Visit N[facility]S [place] Zendejas [address] [facility] 110 [place] [address] Renny Hansen MD [address] [facility] 110 [place] [address] documented as of this encounter Visit Diagnoses Not on filedocumented in this encounter Additional Health Concerns Assessment Noted Time PHQ-9 Depression Total Score: 1 09/06/20 23 2:00 PM EST documented as of this encounter Care Teams Senior Java Developer Relationship Specialty Start Date End Date Renny Hansen MD [address] [facility] 110 [place] [address] PCP - General Internal Medicine 09/19/24 Renny Hansen MD [address] [facility] 110 [place] [address] PCP - Medical [place] 09/12/2409/11 Jazmín Calvillo NP Nurse Practitioner Family Medicine 05/17/24 09/18/24 Cindi Jenkins, GIDEON [address] [place] [address] Soaping Machine Back Tender Family Medicine 11/06/24 12/05/24 Lisa Ramirez LPN [address] [facility] 110 [place] [address] 12/05/24 documented as of this encounter
--- OUTSIDE RECORDS SUMMARY | 2025-05-29 10:27 | XMS_ITS | Clinical Summary ---
Author Organization [facility] Address [address] [place] [address] Care Team Providers Care Bioinformatician Name Role Phone Renny Hansen MD Primary Care Provider [phone] Balta Cardenas DO Unavailable [phone] Allergies No known active allergies Medications cholecalciferol [...] or chew. 180 capsule 3 5 Active furosemide (Lasix) 40 mg tabletIndications :Benign hypertensive heart disease with heart failure (CMS/HCC) Take 1 tablet (40 mg) by mouth two times daily. 180 tablet 3 5 04/26/20 26 Active penicillin v potassium (Veetid) 500 mg tabletIndications :Pain in joint of left shoulder Take 1 tablet (500 mg) by mouth three times daily. 270 tablet 5 05/21/20 25 penicillin v potassium (Veetid) 500 mg tabletIndications :Pain in joint of left shoulder Take 1 tablet (500 mg) by mouth three times daily. 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 Infectious Disease [address] [place] [address] ProviderNeeraj MD 04/26/2025 Refill [facility] at [facility] [address] [place] [address] Roopa Mensah MA Benign hypertensive heart disease with heart failure (CMS/HCC) from Last 3 Months Immunizations Immunization Administration [...] Heterosexual or Straight 11/2024 10:28 AM EDT Last Filed Vital Signs Vital Sign Reading [...] Mass Index 43.42 05/15/2025 10:32 AM EDT Plan of Treatment Upcoming Encounters Date Type Department Care Team (Late st Contact Info) Description 07/10/2025 1:40 PM EDT Office Visit [facility] [address] [place] [address] Kellie Alva MD [address] [facility] [address] MS:[place] [address] 11/13/2025 11:00 AM EST Follow-Up [facility] Infectious Disease [address] [place] [address] Ortega Hines MD [address] [facility]/[place] [address] Health Maintenance Due Date Last Done Comments Medicare Annual Wellness (AWV) 1945 Adult Tetanus 11/30/1969 Zoster Vaccines (1 of 2) 11/30/1997 COVID-19 Vaccine ( season) 2025 11/18/2020, 11/18/2020, 10/20/2020, Additional history exists Influenza Vaccine (#1) 2025 , 08/25/2023, 07/08/2022, Additional history exists Fall Risk Screening 02/20/2026 02/20/2025 Depression Screening 05/15/2026 05/15/2025 Pneumococcal Vaccine: 50+ Years Completed 08/20/2021, 08/04/2020, [...] Procedure Name Priority Date/Time Associated Diagnosis Comments MISCELLANEOUS LAB TEST Routine 05/15/2025 1:44 PM EDT from Last 3 Months Results * - Miscellaneous Test (05/15/2025 1:44 PM EDT) us Historical Provider LAB BLOOD ORDERABLES Summer pascual Result from Last 3 Months Insurance [employer] MEDICARE Care Teams Bioinformatician Relationship Specialty Start Date End Date Renny Hansen MD 112 [facility] 110 [place] [address] PCP - General Internal Medicine 07/18/24 Balta Cardenas DO [address] [place] [address] Referring Physician 11/15/24
--- OUTSIDE RECORDS SUMMARY | 2025-05-29 10:27 | XMS_ITS | Encounter Summary ---
Author Organization [facility] Address [address] [place] [address] Care Team Providers Care Teasel Gig Operator Name Role Phone Shaikh BEREKET Denis Primary Care Provider [phone] Jazmín Calvillo AUDIOVISUAL LEAD TECHNICIAN Unavailable [phone] Renny Hansen MD Primary Care Provider [phone] Renny Hansen MD Unavailable [phone] Cindi Jenkins ADDICTION PSYCHIATRIST Unavailable [phone] Lisa Ramirez MARKET SURVEY REPRESENTATIVE Unavailable Encounter Details Date Type Department Care Team (Late st Contact Info) Description 03/01/2024 Clinisync Result Encounter [facility] External Department Unsolicited Shaikh Denis MD [address] [place] [address] Social History Tobacco Use Types Packs/Day Years [...] How often do you attend presybeterian or congregational serv ices? Patient declined 08/30/2023 [...] Recorded Patient Health Questionnaire-2 Score 0 02/27/2024 [facility] Occupat ional [facility] - [...] EST Office Visit [facility] [place] Zende[place] [address] [facility] 110 [place] [address] Renny Hansen MD 112 [facility] 110 [place] [address] documented as of this encounter Procedures Procedure Name Priority Date/Time Associated Diagnosis Comments XR CHEST 2V 03/01/2024 9:53 AM EDT documented in this encounter Results * XR CHEST 2V (03/01/2024 9:53 AM EDT) Anatomical Region Laterality Modality Other 03/01/2024 9:53 AM EDT Narrative 03/01/2024 9:56 AM EDT The [address] [address] XRay Report Signed Patient: MAXIMUS STARKS MR#: [id number] : 1945 Acct:[id number] Age/Sex: 78 / F ADM Date: 02/29/24 Loc: CARD Attending Dr: Shaikh Cira Kilgore Ordering Physician: Shaikh Magui Denis Date of Service: 02/29/24 Procedure(s): XR chest 2V Accession Number(s): [id number] cc: Shaikh Magui Denis The [address] [address] Patient Name: MAXIMUS STARKS MRN: [id number] date: 1945 Sex: F Assigned Patient Location: CARD Current Patient Location: LAB Accession/Order Number: [id number] Exam Date: 02/29/2024 10:05 Report Date: 03/01/2024 [...] M.D. Signed By: 03/01/24 0956 DD/ TD/TT: Culled Fruit Packer: Procedure Note Radiology, Radiologist, MD - 03/01/[address] [address] XRay Report Signed Patient: MAXIMUS STARKS TMR#: [id number] : 8Acct:[id number] Age/Sex: 78 / FADM Date: 02/29/24 Loc: CARD Attending Dr: Shaikh Cira Kilgore Ordering Physician: Shaikh Magui Denis Date of Service: 02/29/24 Procedure(s): XR chest 2V Accession Number(s): [id number] cc: Shaikh Magui Deins The [address] [address] Patient Name: MAXIMUS STARKS MRN: [id number] date: 1945 Sex: F Assigned Patient Location: CARD Current Patient Location: LAB Accession/Order Number: [id number] Exam Date: 02/29/2024 10:05 Report Date: 03/01/2024 [...] Mantilla M.D. Signed By:03/01/24 0956 DD/ TD/TT: Culled Fruit Packer: us Shaikh Cira [facility] Final Result documented in this encounter Visit Diagnoses Not on filedocumented in this encounter Additional Health Concerns Assessment Noted Time PHQ-9 Depression Total Score: 1 09/06/20 23 2:00 PM EST documented as of this encounter Care Teams Teasel Gig Operator Relationship Specialty Start Date End Date Shaikh Denis MD [address] [place] [address] PCP - General Internal Medicine 10/17/23 05/16/24 Renny Hansen MD [address] [facility] [address] [place] [address] PCP - General Internal Medicine 09/19/24 Renny Hansen MD [address] [facility] [address] [place] [address] PCP - Medical [facility] 09/12/2409/11 Jazmín Calvillo NP [address] [place] [address] Nurse Practitioner Family Medicine 05/17/24 09/18/24 Cindi Jenkins, GIDEON [address] [place] [address] Shift Production Associate Family Medicine 11/06/24 12/05/24 Lisa Ramirez LPN [address] [facility] 110 [place] [address] 12/05/24 documented as of this encounter
--- OUTSIDE RECORDS SUMMARY | 2025-05-29 10:27 | XMS_ITS | Encounter Summary ---
Author Organization [facility] Address [address] [facility] [place] [address] Care Team Providers Care Voice Professor Name Role Phone Jazmín Calvillo SENIOR MI[employer] NET DEVELOPER Unavailable [phone] Renny Hansen MD Primary Care Provider [phone] Renny Hansen MD Unavailable [phone] Cindi Jenkins ORE WASHER Unavailable Lisa Ramirez HOUSEHOLD APPLIANCE MECHANIC Unavailable Encounter Details Date Type Department Care Team (Late st Contact Info) Description 08/27/2024 Abstract C[facility]O [place] [facility] [address] [place] [address] Unallocated, Candido Provider, [address] [place], [place] [address] Social History Tobacco Use Types Packs/Day Years [...] How often do you attend judaism or voodoo serv ices? Patient declined 08/30/2023 [...] Recorded Patient Health Questionnaire-2 Score 0 05/31/2024 [facility] of Occupat ional Health [...] Visit [facility] [place] Zendejas [address] [facility] [address] [place] [address] Renny Hansen MD [address] [facility] [address] [place] [address] documented as of this encounter Visit Diagnoses Not on filedocumented in this encounter Additional Health Concerns Assessment Noted Time PHQ-9 Depression Total Score: 1 09/06/20 23 2:00 PM EST documented as of this encounter Care Teams Voice Professor Relationship Specialty Start Date End Date Renny Hansen MD [address] [facility] [address] [place] [address] PCP - General Internal Medicine 09/19/24 Renny Hansen MD [address] [facility] 110 [place] [address] PCP - Medical [place] 09/12/2409/11 Jazmín Calvillo NP Nurse Practitioner Family Medicine 05/17/24 09/18/24 Cindi Jenkins, ORE WASHER [address] [place] [address] Facsimile Machine Operator Family Medicine 11/06/24 12/05/24 Lisa Ramirez LPN [address] [facility] [address] [place] [address] 12/05/24 documented as of this encounter
--- OUTSIDE RECORDS SUMMARY | 2025-05-29 10:27 | XMS_ITS | Encounter Summary ---
Author Organization [facility] Address [address] [facility] [place] [address] Care Team Providers Care Financial Secretary Name Role Phone Renny Hansen MD Primary Care Provider [phone] Renny Hansen MD Unavailable [phone] GregoryCindi SHELL PRESS OPERATOR Unavailable [phone] Lisa Ramirez ROUGH ROUNDER MACHINE Unavailable Encounter Details Date Type Department Care Team (Late st Contact Info) Description 09/21/[address] [place] [facility] 112 [facility] 110 [place] [address] Renny Hansen MD 112 [facility] 110 [place] [address] Social History Tobacco Use Types Packs/Day Years [...] How often do you attend mormonism or church serv ices? Patient declined 08/30/2023 Do you belong to any clubs o r organizations such as mormonism groups, unions, fraSocialSmack or athletic groups, or school groups? Yes [...] Score 0 05/31/2024 [facility] - Occupational Stress Questionnaire Answer [...] Visit [facility] [place] Zendejas [address] [facility] [address] [place] [address] Renny Hansen MD [address] [facility] [address] [place] [address] documented as of this encounter Visit Diagnoses Not on filedocumented in this encounter Additional Health Concerns Assessment Noted Time PHQ-9 Depression Total Score: 1 09/06/20 23 2:00 PM EST documented as of this encounter Care Teams Financial Secretary Relationship Specialty Start Date End Date Renny Hansen MD [address] [facility] [address] [place] [address] PCP - General Internal Medicine 09/19/24 Renny Hansen MD [address] [facility] [address] [place] [address] PCP - Medical [place] MA 09/12/2409/11 Cindi Jenkins, GIDEON [address] [place] [address] Coding Quality Analyst Family Medicine 11/06/24 12/05/24 Lisa Ramirez LPN 112 [facility] 110 [place] [address] 12/05/24 documented as of this encounter
--- OUTSIDE RECORDS SUMMARY | 2025-05-29 10:27 | XMS_ITS | Encounter Summary ---
Author Organization [facility] Address [address] [place] [address] Care Team Providers Care Stopping Builder Name Role Phone Renny Hansen MD Primary Care Provider [phone] Balta Cardenas DO Unavailable [phone] Encounter Details Date Type Department Care Team (Late st Contact Info) Description 05/15/2025 Orders Only [facility] Infectious Disease [address] [place] [address] ProviderNeeraj MD [address] [place], [place] [address] Social History Tobacco Use Types Packs/Day Years [...] AM EDT documented as of this encounter Functional Status documented as of this encounter Plan of Treatment Upcoming Encounters Date Type Department Care Team (Late st Contact Info) Description 07/10/2025 1:40 PM EDT Office Visit [facility] at [facility] [address] [place] [address] Kellie Alva MD [address] [facility] [address] MS:[address] [place] [address] 11/13/2025 11:00 AM EST Follow-Up [facility] Infectious Disease [address] [place] [address] Ortega Hines MD [address] [facility]/[place] [address] documented as of this encounter Procedures Procedure Name Priority Date/Time Associated Diagnosis Comments MISCELLANEOUS LAB TEST Routine 05/15/2025 1:44 PM EDT documented in this encounter Results * - Miscellaneous Test (05/15/2025 1:44 PM EDT) us Historical Provider LAB BLOOD ORDERABLES Summer l Result documented in this encounter Visit Diagnoses Not on filedocumented in this encounter Care Teams Stopping Builder Relationship Specialty Start Date End Date Renny Hansen MD [address] [facility] 110 [place] [address] PCP - General Internal Medicine 07/18/24 Balta Cardenas DO [address] [place] [address] Referring Physician 11/15/24 documented as of this encounter
--- OUTSIDE RECORDS SUMMARY | 2025-05-29 10:27 | XMS_ITS | Encounter Summary ---
Author Organization [facility] Address [address] [place] [address] Care Team Providers Care Trucking Supervisor Name Role Phone Renny Hansen MD Primary Care Provider [phone] Renny Hansen MD Unavailable [phone] Cindi Jenkins SHIRT CLOSER Unavailable [phone] Lisa Ramirez PLANT MANAGER Unavailable Encounter Details Date Type Department Care Team (Late st Contact Info) Description 10/02/2024 External Result Encounter [facility] External Department Unsolicited Katharina Toledo, PRODUCTION CONTROLLER [address] [place] [address] Social History Tobacco Use Types Packs/Day Years [...] How often do you attend mandaen or hinduism serv ices? Patient declined 08/30/2023 [...] Recorded Patient Health Questionnaire-2 Score 0 05/31/2024 [facility] of Occupat [...] 11:30 AM EST Office Visit [facility] [place] Zendejas 112 [facility] 110 [place] [address] Renny Hansen MD 112 [facility] 110 [place] [address] documented as of this encounter Procedures Procedure [...] Etienne Rhodes M.D.10/02/2024 4:14 PM Dictation Location: [facility]23 Transcribed By: [facility] 10/02/241613 Dictated By: Etienne Rhodes DO 10/02/24 161 Signed By: <Electronically signed by Etienne Rhodes DO in OV> 10/02/24 1614 Narrative 10/02/2024 4:17 PM [facility] [place] [address] CT Scan Report Signed Patient: Breann Starks MR#: [id number] : 1945 Acct:[id number] Age/Sex: 78 / F ADM Date: 10/02/24 Loc: XT Room: Type: REG RCR Attending Dr: Katharina Toledo RAILROAD POLICE OFFICER Copies to: Katharina Toledo APRN Ordering Provider: [...] Procedure Note Radiology, Radiologist, MD - 10/02/2024 [facility] Main [place] [id number] CT Scan Report Signed Patient: Breann Starks TMR#: [id number] : 8Acct:[id number] Age/Sex: 78 / FADM Date: 10/02/24 Loc: XT Room:Type: REG RCR Attending Dr: Katharina Toledo RAILROAD POLICE OFFICER Copies to: Katharina Toledo APRN Ordering Provider: [...] Etienne Rhodes M.D.10/02/2024 4:14 PM Dictation Location: [place] [address] Transcribed By: [facility] 10/02/24 1614 Dictated By: Etienne Rhodes DO 10/02/24 1610 Signed By: <Electronically signed by Etienne Rhodes DO in OV> 10/02/24 1614 us Katharina Toledo PRODUCTION CONTROLLER IMG CT PROCEDURES Final Resul t documented in this encounter Visit Diagnoses Not on filedocumented in this encounter Additional Health Concerns Assessment Noted Time PHQ-9 Depression Total Score: 1 09/06/20 23 2:00 PM EST documented as of this encounter Care Teams Trucking Supervisor Relationship Specialty Start Date End Date Renny Hansen MD [address] [facility] 110 [place] [address] PCP - General Internal Medicine 09/19/24 Renny Hansen MD [address] [facility] [address] [place] [address] PCP - Medical [place] MA 09/12/2409/11 Cindi Jenkins, GIDEON [address] [place] [address] French Teacher Family Medicine 11/06/24 12/05/24 Lisa Ramirez LPN 112 [facility] 110 [place] [address] 12/05/24 documented as of this encounter
--- OUTSIDE RECORDS SUMMARY | 2025-05-29 10:27 | XMS_ITS | Encounter Summary ---
Author Organization [facility] Address [address] [place] [address] Care Team Providers Care Lithographic Platemaker Name Role Phone Shaikh BEREKET Denis Primary Care Provider [phone] Jazmín Calvillo WATCH TRAIN ASSEMBLER Unavailable [phone] Renny Hansen MD Primary Care Provider [phone] Renny Hansen MD Unavailable [phone] Cindi Jenkins RAT TRAPPER Unavailable [phone] Lisa Ramirez RESIDENTIAL CONCIERGE Unavailable Encounter Details Date Type Department Care Team (Late st Contact Info) Description 11/10/2023 [facility] [address] [place] [address] Shaikh Denis MD [address] [place] [address] Social History Tobacco Use Types [...] week 08/30/2023 How often do you attend latter-day or zoroastrianism serv ices? Patient declined 08/30/2023 Do you belong to any clubs o r organizations such as latter-day groups, unions, fraGeev.Me Tech or athletic groups, or school groups? Yes [...] Recorded Patient Health Questionnaire-2 Score 0 11/07/2023 [facility] of Occupat ional Health [...] EST Office Visit [facility] [place] Zendejas 112 [facility] [address] [place] [address] Renny Hansen MD [address] [facility] [address] [place] [address] documented as of this encounter Visit Diagnoses Not on filedocumented in this encounter Additional Health Concerns Assessment Noted Time PHQ-9 Depression Total Score: 1 09/06/20 23 2:00 PM EST documented as of this encounter Care Teams Lithographic Platemaker Relationship Specialty Start Date End Date Shaikh Denis MD [address] [place] [address] PCP - General Internal Medicine 10/17/23 05/16/24 Renny Hansen MD [address] [address] PCP - General Internal Medicine 09/19/24 Renny Hansen MD [address] [address] PCP - Medical [facility] 09/12/2409/11 Jazmín Calvillo NP [address] [place] [address] Nurse Practitioner Family Medicine 05/17/24 09/18/24 Cindi Jenkins, GIDEON [address] [place] [address] Customer Facilities Supervisor Family Medicine 11/06/24 12/05/24 Lisa Ramirez LPN [address] [address] 12/05/24 documented as of this encounter
--- OUTSIDE RECORDS SUMMARY | 2025-05-29 10:27 | XMS_ITS | Encounter Summary ---
Author Organization [facility] Address [address] [place] [address] Care Team Providers Care Finisher Cold Rolling Name Role Phone Shaikh BEREKET Denis Primary Care Provider [phone] Shaikh BEREKET Denis Primary Care Provider [phone] Jazmín Calvillo RACING MANAGER Unavailable [phone] Renny Hansen MD Primary Care Provider [phone] Renny Hansen MD Unavailable [phone] Cindi Jenkins SLAUGHTERER RELIGIOUS RITUAL Unavailable [phone] Lisa Ramirez SAFE DEPOSIT ATTENDANT Unavailable Reason for Visit * Reason Comments Med Refill Encounter Details Date Type Department Care Team (Late st Contact Info) Description 10/13/[address] [facility] [place] [address] [place] [address] Shaikh Denis MD [address] [place] [address] Peptic ulcer, site unspecified, unspecified as acute [...] week 08/30/2023 How often do you attend pentecostal or anabaptism serv ices? Patient declined 08/30/2023 Do you belong to any clubs o r organizations such as pentecostal groups, unions, fraMolecular Templates or athletic groups, or school groups? Yes [...] Recorded Patient Health Questionnaire-2 Score 0 09/06/2023 [facility] of Occupat ional Health - Occupational [...] 11:30 AM EST Office Visit [facility] [place] [facility] [address] [place] [address] Renny Hansen MD [address] [facility] [address] [place] [address] documented as of this encounter Visit Diagnoses [...] documented as of this encounter Care Teams Finisher Cold Rolling Relationship Specialty Start Date End Date Shaikh Denis MD PCP - General Internal Medicine 04/05/23 10/16/23 Shaikh Denis MD [address] [place] [address] PCP - General Internal Medicine 10/17/23 05/16/24 Renny Hansen MD [address] [facility] [address] [place] [address] PCP - General Internal Medicine 09/19/24 Renny Hansen MD [address] [facility] [address] [place] [address] PCP - Medical [facility] 09/12/2409/11 Jazmín Calvillo NP [address] [place] [address] Nurse Practitioner Family Medicine 05/17/24 09/18/24 Cindi Jenkins, GIDEON [address] [facility] [place] [address] Rn Camp Family Medicine 11/06/24 12/05/24 Lisa Ramirez LPN [address] [facility] 110 [place] [address] 12/05/24 documented as of this encounter
--- OUTSIDE RECORDS SUMMARY | 2025-05-29 10:27 | XMS_ITS | Encounter Summary ---
Author Organization [facility] Address [address] [place] [address] Care Team Providers Care Substation Electrician Name Role Phone Shaikh BEREKET Denis Primary Care Provider [phone] Jazmín Calvillo LACER AND TIER Unavailable [phone] Renny Hansen MD Primary Care Provider [phone] Renny Hansen MD Unavailable [phone] Cindi Jenkins CHEMICAL LABORATORY TECHNICIAN Unavailable [phone] Lisa Ramirez LAND COMMISSIONER Unavailable Encounter Details Date Type Department Care Team (Late st Contact Info) Description 12/12/2023 Orders Only [facility] [address] [facility] [place] [phone] Kayley Reeder, GUTTER MOUTH CUTTER-RFID SPECIALIST [address] [facility] [address] [facility] [place] [address] Social History Tobacco Use Types Packs/Day Years [...] How often do you attend mu-ism or orthodoxy serv ices? Patient declined 08/30/2023 Do you belong to any clubs o r organizations such as mu-ism groups, unions, fraEverest Software or athletic groups, or school groups? Yes [...] Recorded Patient Health Questionnaire-2 Score 0 11/07/2023 [facility] of Occupat ional Health - Occupational Stress [...] Office Visit [facility]ien Zendejas [address] [facility] 110 [place] [address] Renny Hansen MD [address] [facility] 110 [place] [address] documented as of this encounter Procedures Procedure Name Priority Date/Time Associated Diagnosis Comments XR DEXA AXIAL SKELETON* Routine 12/12/2023 2:05 PM EDT documented in this encounter Results * XR DEXA AXIAL SKELETON* (12/12/2023 2:05 PM EDT) Anatomical Region Laterality Modality Radiographic Jayashree ging us Kayley Reeder GUTTER MOUTH CUTTER-RFID SPECIALIST IMG XR PROCEDURES Summer l Result documented in this encounter Visit Diagnoses Not on filedocumented in this encounter Additional Health Concerns Assessment Noted Time PHQ-9 Depression Total Score: 1 09/06/20 23 2:00 PM EST documented as of this encounter Care Teams Substation Electrician Relationship Specialty Start Date End Date Shaikh Denis MD [address] [place] [address] PCP - General Internal Medicine 10/17/23 05/16/24 Renny Hansen MD [address] [facility] 110 [place] [address] PCP - General Internal Medicine 09/19/24 Renny Hansen MD [address] [facility] [address] [place] [address] PCP - Medical [facility] 09/12/2409/11 Jazmín Calvillo NP [address] [place] [address] Nurse Practitioner Family Medicine 05/17/24 09/18/24 Cindi Jenkins, GIDEON [address] [facility] [address] Casing Mixer Family Medicine 11/06/24 12/05/24 Lisa Ramirez LPN [address] [facility] 110 [place] [address] 12/05/24 documented as of this encounter
--- OUTSIDE RECORDS SUMMARY | 2025-05-29 10:27 | XMS_ITS | Encounter Summary ---
Author Organization [facility] Address [address] [facility] [place] [address] Care Team Providers Care Needle Polisher Name Role Phone Shaikh BEREKET Denis Primary Care Provider [phone] Jazmín Calvillo BUSINESS OPERATIONS CONSULTANT Unavailable Renny Hansen MD Primary Care Provider [phone] Renny Hansen MD Unavailable [phone] Cindi Jenkins FILING OR REGISTRY CLERK Unavailable [phone] Lisa Ramirez CYCLE TOURING GUIDE Unavailable Encounter Details Date Type Department Care [...] How often do you attend spiritism or confucianism serv ices? Patient declined 08/30/2023 Do you belong to any clubs o r organizations such as spiritism groups, unions, fraPelikan Technologies or athletic groups, or school groups? [...] Recorded Patient Health Questionnaire-2 Score 0 12/29/2023 [facility] of Occupat ional [facility] - Occupational Stress Questionnaire Answer [...] Julien Zendejas [address] [facility] 110 [place] [address] Renny Hansen MD [address] [facility] 110 [place] [address] documented as of this encounter Procedures Procedure Name Priority Date/Time Associated Diagnosis Comments XR SHOULDER 2+ VIEWS LEFT 02/22/2024 7:27 AM EDT documented in this encounter Results * XR shoulder 2+ views left (02/22/2024 7:27 AM EDT) Anatomical Region Laterality Modality Upper Extremities, Shoulder Left Radi ographic Imaging 02/22/2024 7:27 AM EDT Narrative 02/22/2024 7:30 AM EDT The [address] [address] XRay Report Signed Patient: MAXIMUS STARKS MR#: [id number] : 1945 Acct:[id number] Age/Sex: 78 / F ADM Date: 02/21/24 Loc: RAD Attending Dr: Mabel De León NP Ordering Physician: Mabel De León NP Date of Service: 02/21/24 Procedure(s): XR shoulder LT min 2V Accession Number(s): [id number] cc: Shaikh Magui Denis; Mabel De León NP The [place] [address] Patient Name: MAXIMUS STARKS MRN: [id number] date: 1945 Sex: F Assigned Patient Location: [facility] Current Patient Location: Accession/Order Number: [id number] Exam Date: 02/21/2024 17:48 Report Date: 02/22/2024 [...] Alston M.D. Signed By: 02/22/2430 DD/ TD/TT: Signalman: Procedure Note Radiology, Radiologist, MD - 02/22/2024 [place] [address] XRay Report Signed Patient: MAXIMUS STARKS TMR#: [id number] : 8Acct:[id number] Age/Sex: 78 / FADM Date: 02/21/24 Loc: RAD Attending Dr: Mabel Urbano BUSINESS OPERATIONS CONSULTANT Ordering Physician: Mabel De León NP Date of Service: 02/21/24 Procedure(s): XR shoulder LT min 2V Accession Number(s): [id number] cc: Shaikh Magui Denis; Mabel De León NP [address] [address] Patient Name: MAXIMUS STARKS MRN: [facility]:[id number] date: 1945 Sex: F Assigned Patient Location: RAD Current Patient Location: Accession/Order Number: [id number] Exam Date: 02/21/2024 17:48 Report Date: 02/22/2024 [...] Alston M.D. Signed By:02/22/24729 DD/ 6 TD/TT: Signalman: Generic External Data Provider IMG XR PROCEDURES Final Result documented in this encounter Visit Diagnoses Not on filedocumented in this encounter Additional Health Concerns Assessment Noted Time PHQ-9 Depression Total Score: 1 09/06/20 23 2:00 PM EST documented as of this encounter Care Teams Needle Polisher Relationship Specialty Start Date End Date Shaikh Denis MD [address] [place] [address] PCP - General Internal Medicine 10/17/23 05/16/24 Renny Hansen MD [address] [place] [address] [address] [place] [address] PCP - General Internal Medicine 09/19/24 Renny Hansen MD [address] [facility] 110 [place] [address] PCP - Medical [facility] 09/12/2409/11 Jazmín Calvillo NP [address] [place] [address] Nurse Practitioner Family Medicine 05/17/24 09/18/24 Cindi Jenkins, FILING OR REGISTRY CLERK [address] [place], [place] [address] Wine Master Family Medicine 11/06/24 12/05/24 Lisa Ramirez LPN [address] [address] 12/05/24 documented as of this encounter
--- OUTSIDE RECORDS SUMMARY | 2025-05-29 10:27 | XMS_ITS | Clinical Summary ---
Author Organization [facility] Address [address] [place] [address] Care Team Providers Care Pediatric Care Coordinator Name Role Phone Paulette Johnson MD Primary Care Provider [phone] Scott Cruz MD Unavailable Allergies Active Allergy [...] Completed 08/25/2023 Insurance [employer] MEDICARE Care Teams Pediatric Care Coordinator Relationship Specialty Start Date End Date Paulette Johnson MD [address] [place] [address] PCP - General 01/05/06 Scott Cruz MD [address] [address] Referring Infectious Diseases 05/07/24
--- OUTSIDE RECORDS SUMMARY | 2025-05-29 10:27 | XMS_ITS | Clinical Summary ---
Author Organization [facility] Address [address] [facility] [place] [address] Care Team Providers Care Software Product Manager Name Role Phone Renny Hansen MD Primary Care Provider [phone] Renny Hansen MD Unavailable [phone] Lisa Ramirez LPN Unavailable Allergies Active [...] before bedtime. 06/21/20 24 Active HYDROcodone-henrique taminophen ([place]) 5-325 MG tablet Take 1 tablet by [...] 180 tablet 1 02/09/20 25 025 Active saccharomyces boulardii (Florastor) 250 MG capsule Take [...] on medication. 1 kit 04/18/20 25 Active rOPINIRole (Requip) 1 MG tabletIndicatio ns:Restless Leg Syndrome Take 1 tablet (1 mg) by mouth at bedtime 30 tablet 05/16/20 25 026 Active rOPINIRole (Requip) 0.5 MG tabletIndicatio ns:Restless Leg Syndrome Take 1 tablet (0.5 mg) by mouth in the evening. Take with meals 30 tablet 02/19/20 025 Discontinu ed(Reorder ) nitrofurantoin, macrocrystal-mo nohydrate, (Macrobid) 100 MG capsuleIndicati ons:Hematuria, unspecified type Take 1 capsule (100 mg) by mouth in the morning and 1 capsule (100 mg) before bedtime. Do all this for 7 days. 14 capsule 04/24/20 25 025 Active Problems Problem Noted Date Diagnosed [...] place. MRI ordered, awaiting approval. Will order Edinburg as needed as it helped with pain. [...] get device check to assess AF burden -[id number] 3 -Continue Xarelto 20 mg daily, continue propafenone to 25 mg 3 times a day Assessment & Plan (12/29/2023 2:36 PM EDT): S/P PPM. Follows [email or web address] cardiology. On Xarelto for stroke px. Also uses Flecainide, Verapamil. Assessment & Plan (11/07/2023 3:16 PM EST): S/P PPM. Follows [email or web address] cardiology. On Xarelto for stroke px. Also uses Flecainide, Verapamil. Assessment & Plan (09/06/2023 2:46 PM EST): S/P PPM. Follows [facility] [[email or web address] cardiology. On Xarelto for stroke px. Sinus node dysfunction 10/07/2020 Overview (09/06/2023): Last Assessment & Plan: - S/p PPM [place] [employer] -We will have her scheduled for [...] Encounters Date Type Department Care Team Description 05/16/2025 11:00 AM EDT Office Visit [facility] [address] [place] [address] [place] [address] Renny Hansen MD RLS (restless legs syndrome) 05/16/2025 Bamboo flowsheet [facility] [address] [place] [address] [place] [address] Renny Hansen MD 05/16/2025 Travel 05/08/2025 Abstract [facility] [address] [place] [address] [place] [address] Renny Hansen MD 05/07/2025 Abstract [facility] [address] [place] [address] [place] [address] Renny Hansen MD 05/06/2025 Abstract [facility] [address] [place] [address] [place] [address] Renny Hansen MD 04/25/2025 Abstract [facility] [address] [place] [address] [place] [address] Renny Hansen MD 04/24/2025 9:30 AM EDT Office Visit [facility] [address] [place] [address] [place] [address] Shannon Robles NP Hematuria, unspecified type 04/24/2025 External Result Encounter NOMS External Department Unsolicited Shannon Robles NP 04/24/2025 Clinisync Result Encounter NOMS External Department Unsolicited Provider, Generic External Data 04/24/2025 Bamboo flowsheet [facility] [address] [place] [address] [place] [address] Shannon Robles NP 04/24/2025 Travel 04/18/2025 11:00 AM EDT Office Visit [facility] [address] [facility] 110 [place] [address] Eleanor Leahy PA Chronic obstructive pulmonary disease, unspecified COPD type (HCC) (Primary Dx) 04/18/2025 Bamboo flowsheet [facility] [address] [facility] 110 [place] [address] Eleanor Leahy PA 04/18/2025 Travel 04/17/2025 Telephone [facility] [address] [facility] [address] [place] [address] Renny Hansen MD 04/15/2025 Patient Outreach [facility] [address] [place] [address] Lisa Ramirez, [facility] 04/15/2025 Telephone [facility] [address] [facility] 110 [place] [address] Renny Hansen MD 04/05/2025 Patient Outreach [facility] [address] [place] [address] Lisa Ramirez, [facility] 04/01/2025 Telephone [facility] [address] [facility] 110 [place] [address] Renny Hansen MD 03/22/[address] [facility] [address] [facility] 110 [place] [address] Renny Hansen MD from Last 3 Months Immunizations Immunization Administration [...] often do you attend chur ch or restorationism services? Patient declined 11/12/2024 Do [...] Recorded Patient Health Questionnaire-2 Score 0 05/16/2025 [facility] [place] of Occupat ional Health - Occupational Stress [...] any time in the past 12 m [facility], were you homeless or [...] Pulse 67 05/16/2025 10:58 AM EDT Temperature 36.9 C (98.4 F) 08/02/2024 10:51 AM EST Respiratory Rate 17 04/24/2025 9:41 AM EDT Oxygen Saturation 96% 05/16/2025 10:58 AM EDT Inhaled Oxygen Concentration - - Weight 102 kg (225 lb) 05/16/2025 10:58 AM EDT Height 144.8 cm (4' 9 ) 05/16/2025 10:58 AM EDT Body Mass Index 48.69 05/16/2025 10:58 AM EDT Plan of Treatment Upcoming Encounters Date Type Department Care Team (Late st Contact Info) Description 07/18/2025 11:30 AM EST Office Visit [facility] [address] [place] [address] [place] [address] Renny Hansen MD 112 [facility] 110 [place] [address] Health Maintenance Due Date Last Done Comments [...] PM EDT [facility] CMP (CMP) (FOR REMOTE [facility] USE) Routine 04/24/2025 1:20 PM EDT ALL SED RATE Routine 04/24/2025 1:20 PM EDT ALL CBC WITH AUTO DIFF Routine 04/24/2025 1:20 PM EDT POCT URINALYSIS DIPSTICK Routine 04/24/2025 10:21 AM EDT Hematuria, unspecified type URINARY TRACT INFECTION (HTRX) Routine 04/24/2025 12:00 AM EDT from Last 3 Months Results * (ABNORMAL) FREE K+L LT CHAINS,QN,S (04/24/2025 1:20 PM EDT) FREE KAPPA LT CHAINS,S 33.9(A) 3.3 - 19.4 mg/L [facility] FREE LAMBDA LT CHAINS,S 25.7 5.7 - 26.3 mg/L [facility] KAPPA/LAMBDA RATIO,S 1.32 0.26 - 1.65 [facility] Comment: Performed at: [address] [id number] Hand Rug Braider: Baudilio Givens PhD, Phone: [phone] 04/24/2025 1:20 PM EDT 04/24/2025 1:22 PM EDT Narrative [facility] - 04/25/2025 4:09 PM EDT Generic External Data Provider LAB BLOOD ORDERAB LES Final Result [facility] * PROTEIN ELECTRO.,S (04/24/2025 1:20 PM EDT) Pathologist [facility] PROTEIN, TOTAL 7.1 6.0 - 8.5 g/dL [facility] ALBUMIN 3.4 2.9 - 4.4 g/dL [facility] VALDO-6-KHNCGTFO 0.2 0.0 - 0.4 g/dL [facility] VNLWP-8-MXUFMTOF 0.8 0.4 - 1.0 g/dL [facility] BETA GLOBULIN 1.1 0.7 - 1.3 g/dL [facility] GAMMA GLOBULIN 1.6 0.4 - 1.8 g/dL [facility] M-SPIKE Not Observed Not Observed g/dL [facility] GLOBULIN, TOTAL 3.7 2.2 - 3.9 g/dL [facility] A/G RATIO 0.9 0.7 - 1.7 [facility] PLEASE NOTE: Comment . [facility] Comment: Protein electrophoresis scan will follow via computer, mail, or dry box operator delivery. Performed at: [address] [id number] Hand Rug Braider: Baudilio Givens PhD, Phone: [phone] 04/24/2025 1:20 PM EDT 04/24/2025 1:22 PM EDT Narrative [facility] - 04/25/2025 4:09 PM EDT Generic External Data Provider LAB BLOOD ORDERAB LES Final Result [facility] * (ABNORMAL) METRO IRON AND TIBC (04/24/2025 1:20 PM EDT) [facility] IRON 13.0(L) 50.0 - 170.0 ug/dL [facility] TBH TOTAL IRON BINDING CAPACITY 420.0 250.0 - 450.0 ug/dL TB[facility] TB[facility] PERCENT IRON SATURATION 3.1 % [facility] 04/24/2025 1:20 PM EDT 04/24/2025 1:22 PM EDT Narrative [facility] - 04/24/2025 2:28 PM EDT Generic External Data Provider [facility] F inal Result Performing Organization Address [facility]/ZIP Co de Phone Number [facility] * [facility] FERRITIN (04/24/2025 1:20 PM EDT) Pathologist [facility] FERRITIN 9.0 8.0 - 252.0 ng/mL [facility] 04/24/2025 1:20 PM EDT 04/24/2025 1:22 PM EDT Narrative [facility] - 04/24/2025 2:39 PM EDT Generic External Data Provider [facility] F inal Result [facility] * (ABNORMAL) [facility] CMP (CMP) (FOR REMOTE [facility] USE) (04/24/2025 1:20 PM EDT) SODIUM 142 136 - 145 mmol/L [facility] POTASSIUM 4.1 3.5 - 5.1 mmol/L [facility] CHLORIDE 105 98 - 107 mmol/L [facility] CARBON DIOXIDE 27.5 21.0 - 32.0 mmol/L [facility] ANION GAP 13.6 TB[facility] GLUCOSE 106 74 - 106 mg/dL [facility] BLOOD UREA NITROGEN 23.0(H) 7.0 - 18.0 mg/dL [facility] CREATININE 0.73 0.55 - 1.02 mg/dL [facility] TBH EGFR-AF BULGARIAN >60 >=60 mL/min/1. 73m 2 TBH TBH EGFR-NON AF BULGARIAN >60 >=60 mL/min/1. 73m 2 TB[facility] BUN [...] CLINISYNC F ina Result Performing Organization Address [facility] de Phone Number [facility] * (ABNORMAL) ALL SED RATE (04/24/2025 1:20 PM EDT) [facility] SED RATE 91(H) <=30 mm/hr TB 04/24/2025 1:20 PM EDT 04/24/2025 1:22 PM EDT Narrative [facility] - 04/24/2025 1:43 PM EDT Generic External Data Provider CLINISYNC F inal Result Performing Organization Address [facility] Co de Phone Number [facility] * ALL LDH (04/24/2025 1:20 PM EDT) LACTATE DEHYDROGENASE 168 81 - 234 U/L [facility] 04/24/2025 1:20 PM EDT 04/24/2025 1:22 PM EDT Narrative [facility] - 04/24/2025 2:24 PM EDT us Generic External Data Provider [facility] F inal Result [facility] * (ABNORMAL) ALL CBC WITH AUTO DIFF (04/24/2025 1:20 PM EDT) Pathologist [facility] TB WBC 8.6 4.0 - 11.0 10 3/uL [...] Narrative [facility] - 04/24/2025 1:27 PM EDT Generic External Data Provider CLINISYNC F inal Result [facility] * (ABNORMAL) POCT Urinalysis dipstick (04/24/2025 [...] 04/24/2025 10:2 1 AM EDT Shannon Robles TUNNEL ELASTIC OPERATOR ZIGZAG POINT OF CARE TEST ENTER/LUIS EDUARDO T ORDERABLES Final Result * (ABNORMAL) URINARY TRACT INFECTION (HTRX) (04/24/2025 12:00 AM EDT) ACINETOBACTER BAUMANII 0 19.961 - 24.689 ppm 04/25/2025 11:13 AM EDT [facility] ACINETOBACTER BAUMANII Not Detected 19.961 - 24.689 ppm 04/25/2025 11:13 AM EDT [facility] CITROBACTER FREUNDII 0 23.000 - 32.015 ppm 04/25/2025 11:13 AM EDT [facility] CITROBACTER FREUNDII Not Detected 23.000 - 32.015 ppm 04/25/2025 11:13 AM EDT [facility] ENTEROBACTER AEROGENES, CLOACAE 0 23.000 - 32.290 ppm 04/25/2025 11:13 AM EDT [facility] ENTEROBACTER AEROGENES, CLOACAE Not Detected 23.000 - 32.290 ppm 04/25/2025 11:13 AM EDT [facility] ENTEROCOCCUS FAECALIS, FAECIUM 0 26.000 - 33.043 ppm 04/25/2025 11:13 AM EDT [facility] ENTEROCOCCUS FAECALIS, FAECIUM Not Detected 26.000 - 33.043 ppm 04/25/2025 11:13 AM EDT [facility] ESCHERICHIA COLI 22.906(A) 23.000 - 28.500 ppm 04/25/2025 11:13 AM EDT [facility] ESCHERICHIA COLI Detected(A) 23.000 - 28.500 ppm 04/25/2025 11:13 AM EDT [facility] KLEBSIELLA PNEUMONIAE, OXYTOCA 0 23.000 - 31.865 ppm 04/25/2025 11:13 AM EDT [facility] KLEBSIELLA PNEUMONIAE, OXYTOCA Not Detected 23.000 - 31.865 ppm 04/25/2025 11:13 AM EDT [facility] MORGANELLA MORGANII 0 19.961 - 24.689 ppm 04/25/2025 11:13 AM EDT [facility] MORGANELLA MORGANII Not Detected 19.961 - 24.689 ppm 04/25/2025 11:13 AM EDT [facility] PROTEUS MIRABILIS, VULGARIS 0 23.000 - 28.500 ppm 04/25/2025 11:13 AM EDT [facility] PROTEUS MIRABILIS, VULGARIS Not Detected 23.000 - 28.500 ppm 04/25/2025 11:13 AM EDT [facility] PSEUDOMONAS AERUGINOSA 0 23.000 - 31.801 ppm 04/25/2025 11:13 AM EDT [facility] PSEUDOMONAS AERUGINOSA Not Detected 23.000 - 31.801 ppm 04/25/2025 11:13 AM EDT [facility] STAPHYLOCOCCUS AUREUS 0 26.000 - 31.595 ppm 04/25/2025 11:13 AM EDT [facility] STAPHYLOCOCCUS AUREUS Not Detected 26.000 - 31.595 ppm 04/25/2025 11:13 AM EDT [facility] STREPTOCOCCUS AGALACTIAE (GROUP B STREP) 0 26.000 - 32.435 ppm 04/25/2025 11:13 AM EDT [facility] STREPTOCOCCUS AGALACTIAE (GROUP B STREP) Not Detected 26.000 - 32.435 ppm 04/25/2025 11:13 AM EDT [facility] RASHID ALBICANS, PARAPSILOSIS, TROPICALIS 0 23.000 - 30.347 ppm 04/25/2025 11:13 AM EDT [facility] RASHID ALBICANS, PARAPSILOSIS, TROPICALIS Not Detected 23.000 - 30.347 ppm 04/25/2025 11:13 AM EDT [facility] RASHID GLABRATA 0 23.000 - 31.618 ppm 04/25/2025 11:13 AM EDT [facility] RASHID GLABRATA Not Detected 23.000 - 31.618 ppm 04/25/2025 11:13 AM EDT [facility] RASHID KRUSEI 0 23.000 - 30.873 ppm 04/25/2025 11:13 AM EDT [facility] RASHID KRUSEI Not Detected 23.000 - 30.873 ppm 04/25/2025 11:13 AM EDT [facility] SERRATIA MARCESCENS 0 23.000 - 31.581 ppm 04/25/2025 11:13 AM EDT [facility] SERRATIA MARCESCENS Not Detected 23.000 - 31.581 ppm 04/25/2025 11:13 AM EDT [facility] STREPTOCOCCUS PYOGENES (GROUP A STREP) 0 19.961 - 24.689 ppm 04/25/2025 11:13 AM EDT [facility] STREPTOCOCCUS PYOGENES (GROUP A STREP) Not Detected 19.961 - 24.689 ppm 04/25/2025 11:13 AM EDT [facility] STAPHYLOCOCCUS EPIDERMIDIS, HAEMOLYTICUS, LUGDUNENSIS, SAPROPHYTICUS (URINA 0 19.961 - 24.689 ppm 04/25/2025 11:13 AM EDT [facility] STAPHYLOCOCCUS EPIDERMIDIS, HAEMOLYTICUS, LUGDUNENSIS, SAPROPHYTICUS (URINA Not Detected 19.961 - 24.689 ppm 04/25/2025 11:13 AM EDT [facility] STAPHYLOCOCCUS EPIDERMIDIS, HAEMOLYTICUS, LUGDUNENSIS, SAPROPHYTICUS (URINA 0 19.961 - 24.689 ppm 04/25/2025 11:13 AM EDT [facility] STAPHYLOCOCCUS EPIDERMIDIS, HAEMOLYTICUS, LUGDUNENSIS, SAPROPHYTICUS (URINA Not Detected 19.961 - 24.689 ppm 04/25/2025 11:13 AM EDT [facility] TET B, TET M 27.112(A) 23.000 - 27.500 ppm 04/25/2025 11:13 AM EDT [facility] TET B, TET M Detected(A) 23.000 - 27.500 ppm 04/25/2025 11:13 AM EDT [facility] 04/24/2025 04/25/2025 4:2 8 AM EDT us Shannon Robles TUNNEL ELASTIC OPERATOR ZIGZAG LAB BLOOD ORDERABLES Final R esult [facility] [address] [place] [address] from Last 3 Months Insurance [employer] Care Teams Software Product Manager Relationship Specialty Start Date End Date Renny Hansen MD [address] [facility] [address] [place] [address] PCP - General Internal Medicine 09/19/24 Renny Hansen MD [address] [facility] [address] [place] [address] PCP - Medical [facility] 09/12/2409/11 Lisa Ramirez LPN [address] [facility] [address] [place] [address] 12/05/24
--- OUTSIDE RECORDS SUMMARY | 2025-05-29 10:27 | XMS_ITS | Encounter Summary ---
Author Organization [facility] Address [address] [place] [address] Care Team Providers Care Critical Care Unit Nurse Name Role Phone Renny Hansen MD Primary Care Provider [phone] Renny Hansen MD Unavailable [phone] Cindi Jenkins FLOOR STEWARD/STEWARDESS Unavailable [phone] Lisa Ramirez BUSINESS BANKING RELATIONSHIP MANAGER Unavailable Encounter Details Date Type Department Care Team (Late st Contact Info) Description 10/16/2024 External Result Encounter [facility] External Department Unsolicited Dmitriy Duque, DO [address] [place] [address] Social History Tobacco Use Types Packs/Day Years [...] file 10/10/2024 How often do you attend mormonism or orthodoxy serv ices? Patient declined 10/10/2024 Do you [...] living in a fpc (including now)? No 10/10/2024 Comments Unknown Sex [...] things Not at all 10/17/2024 11:00 AM EST Carlene Yan L PN Feeling down, depressed, or hopeless Not at all 10/17/2024 11:00 AM EST Carlene Yan L PN Patient Health Questionnaire -2 Score 0 10/17/2024 11:00 AM EST Carlene Yan L PN documented as of this encounter Plan of Treatment Upcoming Encounters Date Type Department Care Team (Late st Contact Info) Description 07/18/2025 11:30 AM EST [facility] [place] [facility] [address] [facility] 110 [place] [address] Renny Hansen MD 112 [facility] 110 [place] [address] documented as of this encounter Procedures Procedure [...] Benton Jr., D.O.10/16/2024 2:20 PM Dictation Location: [facility] Tech: Ghazal Barber Transcribed By: STAR 10/16/24 1420 Dictated By: Francisco J Benton Jr, DO 10/16/24 1343 Signed By: <Electronically signed by Francisco J Benton Jr, DO in OV> 10/16/24 1420 Narrative 10/16/2024 2:30 PM EST [facility] [place] [address] [place] [address] Ultrasound Report Signed Patient: Breann Starks MR#: [id number] : 1945 Acct:[id number] Age/Sex: 78 / F ADM Date: 10/16/24 Loc: [facility] Room: Type: [facility] CLI Attending Dr: Dmitriy Duque DO Ordering Provider: Dmitriy Duque DO Date of Service: 10/16/24 US/US axilla: R92.8 ([id number]) MM/MM diagnostic mammo BI w/CAD: ENLARGED LT [...] axilla Procedure Note Radiology, Radiologist, - 10/16/2024 [facility] [place] [address] [place] [address] Ultrasound Report Signed Patient: Breann Starks TMR#: [id number] : 8Acct:[id number] Age/Sex: 78 / FADM Date: 10/16/24 Loc: [facility] Room:Type: REG CLI Attending Dr: Dmitriy Duque DO Ordering Provider: Dmitriy Duque DO Date of Service: 10/16/24 US/US axilla: R92.8 ([id number]) MM/MM diagnostic mammo BI w/CAD: ENLARGED LT [...] Benton Jr., D.O.10/16/2024 2:20 PM Dictation Location: [facility] Tech: Ghazal Wilson; Kadi Barber Transcribed By: [...] documented as of this encounter Care Teams Critical Care Unit Nurse Relationship Specialty Start Date End Date Renny Hansen MD [address] [facility] 110 [place] [address] PCP - General Internal Medicine 09/19/24 Renny Hansen MD [address] [facility] 110 [place] [address] PCP - Medical [place] 09/12/2409/11 Cindi Jenkins, FLOOR STEWARD/STEWARDESS [address] [place] [address] Melter Supervisor [employer] Family Medicine 11/06/24 12/05/24 Lisa Ramirez LPN [address] [facility] 110 [place] [address] 12/05/24 documented as of this encounter
--- OUTSIDE RECORDS SUMMARY | 2025-05-29 10:27 | XMS_ITS | Encounter Summary ---
Author Organization [facility] Address [address] [place] [address] Care Team Providers Care Disposal Plant Operator Name Role Phone Shaikh BEREKET Denis Primary Care Provider [phone] Jazmín Calvillo ENVIRONMENTAL SERVICES FLOOR TECH Unavailable [phone] Renny Hansen MD Primary Care Provider [phone] Renny Hansen MD Unavailable [phone] Cindi Jenkins ELECTRICAL TIMING DEVICE CALIBRATOR Unavailable [phone] Lisa Ramirez GUIDE Unavailable Encounter Details Date Type Department Care Team (Late st Contact Info) Description 11/14/2023 Orders Only [facility] [address] [place] [address] Shaikh Denis MD [address] [place] [address] Social History Tobacco Use Types Packs/Day Years [...] How often do you attend nondenominational or caodaism serv ices? Patient declined 08/30/2023 Do you belong to any clubs o r organizations such as nondenominational groups, unions, fraPinkdingo or athletic groups, or school groups? Yes [...] Recorded Patient Health Questionnaire-2 Score 0 11/07/2023 [facility] Occupat ional [facility] - [...] AM EST [facility] [place] [facility] 110 [place] [address] Renny Hansen MD 112 [facility] 110 [place] [address] documented as of this encounter Procedures Procedure [...] documented as of this encounter Care Teams Disposal Plant Operator Relationship Specialty Start Date End Date Shaikh Denis MD [address] [place] [address] PCP - General Internal Medicine 10/17/23 05/16/24 Renny Hansen MD [address] [facility] 110 [place] [address] PCP - General Internal Medicine 09/19/24 Renny Hansen MD [address] [facility] 110 [place] [address] PCP - Medical [facility] 09/12/2409/11 Jazmín Calvilol NP [address] [place] [address] Nurse Practitioner Family Medicine 05/17/24 09/18/24 Cindi Jenkins, GIDEON [address] [facility] [place] [address] Multiple Knife Edge Trimmer Operator Family Medicine 11/06/24 12/05/24 Lisa Ramirez LPN [address] [facility] 110 [place] [address] 12/05/24 documented as of this encounter
--- OUTSIDE RECORDS SUMMARY | 2025-05-29 10:27 | XMS_ITS | Encounter Summary ---
Author Organization [facility] Address [address] [place] [address] Care Team Providers Care Placing Judge Name Role Phone Shaikh BEREKET Denis Primary Care Provider [phone] Jazmín Calvillo PRODUCTION OFFICER Unavailable [phone] Renny Hansen MD Primary Care Provider [phone] Renny Hansen MD Unavailable [phone] Cindi Jenkins DISTRIBUTION COLLECTION OPERATOR Unavailable [phone] Lisa Ramirez PROSTHETIC AIDE Unavailable Encounter Details Date Type Department Care Team (Late st Contact Info) Description 03/02/2024 Clinisync Result Encounter [facility] External Department Unsolicited Shaikh Denis MD [address] [place] [address] Social History Tobacco Use Types Packs/Day Years [...] How often do you attend orthodoxy or latter-day serv ices? Patient declined 08/30/2023 Do you belong to any clubs o r organizations such as orthodoxy groups, unions, fraternal or athletic groups, or [...] Recorded Patient Health Questionnaire-2 Score 0 02/27/2024 [facility] of Occupat ional Health - [...] EST Office Visit [facility] [place] 112 [facility] 110 [place] [address] Renny Hansen MD 112 [facility] 110 [place] [address] documented as of this encounter Procedures Procedure Name Priority Date/Time Associated Diagnosis Comments CA ECHO DOPPLER COMPLETE 03/02/2024 9:05 AM EDT documented in this encounter Results * CA ECHO DOPPLER COMPLETE (03/02/2024 9:05 AM EDT) Anatomical Region Laterality Modality Other 03/02/2024 9:05 AM EDT Narrative 03/02/2024 9:06 AM EDT [address] [address] Cardiology Report Signed Patient: MAXIMUS STARKS MR#: [id number] : 1945 Acct:[id number] Age/Sex: 78 / F ADM Date: 02/29/24 Loc: CARD Attending Dr: Shaikh Cira Kilg[place] Ordering Physician: Shaikh Magui Denis Date of Service: 02/29/24 Procedure(s): CA echo doppler complete Accession Number(s): [id number] cc: Shaikh Magui Denis Patient Name: MAXIMUS STARKS MR#: [id number] : 1945 Exam Date: 02/29/2024 Ordering Doctor: [...] SALAZAR Signed By: 03/02/24905 DD/ 4 TD/TT: Resident Services Coordinator: Procedure Note Radiology, Radiologist, MD - 03/02/2024 [place] [address] Cardiology Report Signed Patient: MAXIMUS STARKS TMR#: [id number] : 8Acct:[id number] Age/Sex: 78 / FADM Date: 02/29/24 Loc: CARD Attending Dr: Shaikh Cira Kilgore Ordering Physician: Shaikh Magui Denis Date of Service: 02/29/24 Procedure(s): CA echo doppler complete Accession Number(s): [id number] cc: Shaikh Magui Denis Patient Name: MAXIMUS STARKS MR#: [id number] : 1945 Exam Date: 02/29/2024 Ordering Doctor: [...] SAKINA SALAZAR Signed By:03/02/24905 DD/ 4 TD/TT: Resident Services Coordinator: us Shaikh Cira [facility] Final Result documented in this encounter Visit Diagnoses Not on filedocumented in this encounter Additional Health Concerns Assessment Noted Time PHQ-9 Depression Total Score: 1 09/06/20 23 2:00 PM EST documented as of this encounter Care Teams Placing Judge Relationship Specialty Start Date End Date Shaikh Denis MD [address] [address] PCP - General Internal Medicine 10/17/23 05/16/24 Renny Hansen MD [address] [facility] 110 [place] [address] PCP - General Internal Medicine 09/19/24 Renny Hansen MD [address] [facility] 110 [place] [address] PCP - Medical [facility] 09/12/2409/11 Jazmín Calvillo NP [address] [place] [address] Nurse Practitioner Family Medicine 05/17/24 09/18/24 Cindi Jenkins, GIDEON [address] [place] [address] Waste Recycler Family Medicine 11/06/24 12/05/24 Lisa Ramirez LPN [address] [facility] 110 [place] [address] 12/05/24 documented as of this encounter
--- OUTSIDE RECORDS SUMMARY | 2025-05-29 10:27 | XMS_ITS | Encounter Summary ---
Author Organization [facility] Address [address] [facility] [place] [address] Care Team Providers Care Gunner'S Mate Name Role Phone Renny Hansen MD Primary Care Provider [phone] Renny Hansen MD Unavailable [phone] GregoryCindi CLINICAL MEDICAL ASSISTANT Unavailable [phone] Lisa Ramirez BRIQUETTE MOLDER Unavailable Encounter Details Date Type Department Care Team (Late st Contact Info) Description 10/18/2024 Abstract [facility] [place] [facility] 112 [facility] 110 [place] [address] Renny Hansen MD 112 [facility] 110 [place] [address] Social History Tobacco Use Types Packs/Day Years [...] file 10/10/2024 How often do you attend jew or mandaeism serv ices? Patient declined 10/10/2024 Do you [...] time in the past 12 m [facility], were you homeless or living [...] EST Office Visit [facility] [place] 112 [facility] 110 [place] [address] Renny Hansen MD 112 [facility] [address] [place] [id number] documented as of this encounter Visit Diagnoses Not on filedocumented in this encounter Additional Health Concerns Assessment Noted Time PHQ-9 Depression Total Score: 1 09/06/20 23 2:00 PM EST documented as of this encounter Care Teams Gunner'S Mate Relationship Specialty Start Date End Date Renny Hansen MD [address] [facility] 110 [place] [address] PCP - General Internal Medicine 09/19/24 Renny Hansen MD [address] [facility] 110 [place] [address] PCP - Medical [place] 09/12/2409/11 Cindi Jenkins, GIDEON [address] [place] [address] Fuse Spooler Family Medicine 11/06/24 12/05/24 Lisa Ramirez LPN [address] [facility] 110 [place] [address] 12/05/24 documented as of this encounter
--- OUTSIDE RECORDS SUMMARY | 2025-05-29 10:28 | XMS_ITS | Encounter Summary ---
Author Organization [facility] Address [address] [facility] [place] [address] Care Team Providers Care Psych Specialist Name Role Phone Jazmín Calvillo SENIOR MAINFRAME PROGRAMMER ANALYST Unavailable [phone] Renny Hansen MD Primary Care Provider [phone] Renny Hansen MD Unavailable Cindi Jenkins ROLL PLUGGER Unavailable [phone] Lisa Ramirez EQUITY HOLDER Unavailable Encounter Details Date Type Department Care Team (Late st Contact Info) Description 07/09/2024 Abstract [facility] [place] [facility] [address] [place] [address] [place] [address] Unallocated, Candido Provider, [address] [place], [place] [address] Social History Tobacco Use Types Packs/Day Years [...] often do you attend jehovah's witness or moravian serv ices? Patient declined 08/30/2023 Do you [...] Recorded Patient Health Questionnaire-2 Score 0 05/31/2024 [facility] of Occupat ional [...] [place] [address] [place] [address] [place] [address] Renny Hansen MD [address] [facility] 110 [place] [address] documented as of this encounter Visit Diagnoses Not on filedocumented in this encounter Additional Health Concerns Assessment Noted Time PHQ-9 Depression Total Score: 1 09/06/20 23 2:00 PM EST documented as of this encounter Care Teams Psych Specialist Relationship Specialty Start Date End Date Renny Hansen MD [address] [facility] [address] [place] [address] PCP - General Internal Medicine 09/19/24 Renny Hansen MD [address] [facility] 110 [place] [address] PCP - Medical [place] 09/12/2409/11 Jazmín Calvillo NP Nurse Practitioner Family Medicine 05/17/24 09/18/24 Cindi Jenkins, ROLL PLUGGER [address] [place] [address] Instrumentation Chemist Family Medicine 11/06/24 12/05/24 Lisa Ramirez LPN [address] [facility] 110 [place] [address] 12/05/24 documented as of this encounter
--- OUTSIDE RECORDS SUMMARY | 2025-05-29 10:28 | XMS_ITS ---
Author Organization [facility] Address [address] [place] [address] Care Team Providers Care Interpreter For The Deaf Name Role Phone Renny Hansen MD Primary Care Provider [phone] Renny Hansen MD Unavailable [phone] Lisa Ramirez LPN Unavailable Chronic Care Management (CCM) Status:Enrolled (Active) Start date:11/06/2024 Enrollment date:11/08/2024 Enrollment reason:Identified as high-risk Case Team Name Relationship Phone Lisa Ramirez LPN(Responsible Staff) [phone] Continued Care and Services Coordination
--- OUTSIDE RECORDS SUMMARY | 2025-05-29 10:28 | XMS_ITS | Encounter Summary ---
Author Organization [facility] Address [address] [facility] [place] [address] Care Team Providers Care Scholastic Aptitude Test Grader Name Role Phone Jazmín Calvillo SAP BASIS CONSULTANT Unavailable [phone] Renny Hansen MD Primary Care Provider [phone] Renny Hansen MD Unavailable [phone] Cindi Jenkins INSTRUMENTATION ENGINEERING TECHNICIAN Unavailable [phone] Lisa Ramirez MEASUREMENT ANALYST Unavailable Encounter Details Date Type Department Care Team (Late st Contact Info) Description 08/08/2024 Clinisync Result Encounter [facility] External Department Unsolicited Renny Hansen MD [address] [address] Social History Tobacco Use Types Packs/Day Years [...] How often do you attend baptist or synagogue serv ices? Patient declined 08/30/2023 Do you belong to any clubs o r organizations such as baptist groups, unions, fraRolltech or athletic groups, or school groups? Yes [...] Recorded Patient Health Questionnaire-2 Score 0 05/31/2024 [facility] - Occupational Stress Questionnaire [...] a fpc (including now)? Patient refused 08/30/2023 Comments Unknown [...] EST Office Visit [facility] [place] 112 [facility] 110 [place] [address] Renny Hansen MD 112 [facility] 110 [place] [address] documented as of this encounter Procedures Procedure Name Priority Date/Time Associated Diagnosis Comments FL UPPER GI W AIR* 08/08/2024 6: 31 AM EST documented in this encounter Results * FL UPPER GI W AIR* (08/08/2024 6:31 AM EST) Anatomical Region Laterality Modality Radiographic Jayashree ging 08/08/2024 6:31 AM EST Narrative 08/08/2024 6:33 AM EST The [address] [address] Fluoroscopy Report Signed Patient: MAXIMUS HERRMANN MR#: [id number] : 1945 Acct:[id number] Age/Sex: 78 / F ADM Date: 08/07/24 Loc: CT Attending Dr: RENNY HANSEN Ordering Physician: RENNY HANSEN Date of Service: 08/07/24 Procedure(s): FL upper GI w air Accession Number(s): [id number] cc: RENNY HANSEN [place] [address] Patient Name: MAXIMUS HERRMANN MRN: [id number] date: 1945 Sex: F Assigned Patient Location: CT Current Patient Location: Accession/Order Number: [id number] Exam Date: 08/07/2024 08:45 Report Date: 08/08/2024 [...] M.D. Signed By: 08/08/2433 DD/ 0 TD/TT: Rnfa: Procedure Note Radiology, Radiologist, MD - 08/08/2024 [place] [address] Fluoroscopy Report Signed Patient: MAXIMUS HERRMANN TMR#: [id number] : 8Acct:[id number] Age/Sex: 78 / FADM Date: 08/07/24 Loc: [place] Attending Dr: RENNY HANSEN Ordering Physician: RENNY HANSEN Date of Service: 08/07/24 Procedure(s): FL upper GI w air Accession Number(s): [id number] cc: RENNY HANSEN The [address] [address] Patient Name: MAXIMUS HERRMANN MRN: [id number] date: 1945 Sex: F Assigned Patient Location: CT Current Patient Location: Accession/Order Number: [id number] Exam Date: 08/07/2024 08:45 Report Date: 08/08/2024 [...] Delgado M.D. Signed By:08/08/24632 DD/ 0 TD/TT: Rnfa: Renny Hansen MD IMG XR PROCEDURES Final Result documented in this encounter Visit Diagnoses Not on filedocumented in this encounter Additional Health Concerns Assessment Noted Time PHQ-9 Depression Total Score: 1 09/06/20 23 2:00 PM EST documented as of this encounter Care Teams Scholastic Aptitude Test Grader Relationship Specialty Start Date End Date Renny Hansen MD [address] [place] [facility] 110 [place] [address] PCP - General Internal Medicine 09/19/24 Renny Hansen MD [address] [facility] 110 [place] [address] PCP - Medical [place] 09/12/2409/11 Jazmín Calvillo NP Nurse Practitioner Family Medicine 05/17/24 09/18/24 Cindi Jenkins, GIDEON [address] [place] [address] Surety Bond Agent Family Medicine 11/06/24 12/05/24 Lisa Ramirez LPN 112 [facility] 110 [place] [address] 12/05/24 documented as of this encounter
--- OUTSIDE RECORDS SUMMARY | 2025-05-29 10:28 | XMS_ITS | Encounter Summary ---
Author Organization [facility] Address [address] [place] [address] Care Team Providers Care Deflector Operator Name Role Phone Jazmín Calvillo NP Unavailable [phone] Renny Hansen MD Primary Care Provider Renny Hansen MD Unavailable [phone] Cindi Jenkins CHILDREN'S AIDE Unavailable [phone] Lisa Ramirez PAINT ROLLER COVERS SUPERVISOR Unavailable Encounter Details Date Type Department [...] How often do you attend restorationism or islam serv ices? Patient declined 08/30/2023 [...] Recorded Patient Health Questionnaire-2 Score 0 05/31/2024 [facility] of Occupat ional Health [...] EST Office Visit [facility] [place] [address] [facility] 110 [place] [address] Renny Hansen MD 112 [facility] 110 [place] [address] documented as of this encounter Procedures Procedure Name Priority Date/Time Associated Diagnosis Comments CT SHOULDER LEFT W IV CONTRAST 06/28/2024 8:42 AM EDT documented in this encounter Results * CT shoulder left w IV contrast (06/28/2024 8:42 AM EDT) Anatomical Region Laterality Modality Upper Extremities, Shoulder Left Comp uted Tomography 06/28/2024 8:42 AM EDT Narrative 06/28/2024 8:45 AM EDT The [address] [address] [address] Scan Report Signed Patient: BREANN STARKS MR#: [id number] : 1945 Acct:[id number] Age/Sex: 78 / F ADM Date: 06/26/24 Loc: CT Attending Dr: VangieStaff Physician [place] Ordering Physician: Channing Devlin M.D. Date of Service: 06/26/24 Procedure(s): CT Shoulder LT w/ Con Accession Number(s): [id number] cc: RENNY HANSEN [place] [id number] Patient Name: BREANN STARKS MRN: [facility]:[id number] date: 1945 Sex: F Assigned Patient Location: CT Current Patient Location: Accession/Order Number: [id number] Exam Date: 06/26/2024 14:58 Report Date: 06/28/2024 [...] M.D. Signed By: 06/28/2445 DD/ 0842 TD/TT: Telecommunications Clerk: Procedure Note Radiology, Radiologist, - 06/28/[address] [address] [address] Scan Report Signed Patient: BREANN STARKS TMR#: [id number] : 8Acct:[id number] Age/Sex: 78 / FADM Date: 06/26/24 Loc: CT Attending Dr: Non-Staff Physician Magui Ordering Physician: Channing Devlin M.D. Date of Service: 06/26/24 Procedure(s): CT Shoulder LT w/ Con Accession Number(s): [id number] cc: RENNY HANSEN [address] [address] Patient Name: BREANN STARKS MRN: [id number] date: 1945 Sex: F Assigned Patient Location: CT Current Patient Location: Accession/Order Number: [id number] Exam Date: 06/26/2024 14:58 Report Date: 06/28/2024 [...] Jurado M.D. Signed By:06/28/2445 DD/ 1 TD/TT: Telecommunications Clerk: us Generic External Data Provider IMG CT PROCEDURES Final Result documented in this encounter Visit Diagnoses Not on filedocumented in this encounter Additional Health Concerns Assessment Noted Time PHQ-9 Depression Total Score: 1 09/06/20 23 2:00 PM EST documented as of this encounter Care Teams Deflector Operator Relationship Specialty Start Date End Date Renny Hansen MD [address] [facility] 110 [place] [address] PCP - General Internal Medicine 09/19/24 Renny Hansen MD [address] [facility] 110 [place] [address] PCP - Medical [facility] 09/12/2409/11 Jazmín Calvillo NP Nurse Practitioner Family Medicine 05/17/24 09/18/24 Cindi Jenkins, GIDEON [address] [place] [address] Bingo Checker Family Medicine 11/06/24 12/05/24 Lisa Ramirez LPN [address] [facility] 110 [place] [address] 12/05/24 documented as of this encounter
--- OUTSIDE RECORDS SUMMARY | 2025-05-29 10:28 | XMS_ITS | Patient Health Record ---
Author Organization [facility] Address [address] [place] [address] Care Team Providers Care Etiologist Name Role Phone SHAIKH DOMINGUEZ Primary Care Provider James Garcia Unavailable [phone] Reason For Referral No Information Plan Of Treatment Pending Test Test Name Order Date MRI : Shoulder W/O Contrast Left - 15884 03/05/2024 ORDERS 03/19/2024 Chest 2 views - [id number] 03/19/2024 Insurance Providers Payer Name Payer Address Payer Phone Subscriber Number Group Number Insured Name Patient Relationship to Insured Coverage Start Date Coverage End Date Medicare [employer] [address] [facility] [place] [phone] [id number] MAXIMUS HERRMANN Self - patient is the insured
--- OUTSIDE RECORDS SUMMARY | 2025-05-29 10:28 | XMS_ITS | Encounter Summary ---
Author Organization [facility] Address [address] [place] [address] Care Team Providers Care Environmental Engineering Manager Name Role Phone Jazmín Calvillo NP Unavailable [phone] Renny Hansen MD Primary Care Provider [phone] Renny Hansen MD Unavailable [phone] Cindi Jenkins SANITATION TECHNICIAN Unavailable [phone] Lisa Ramirez WASTE PAPER HAMMERMILL OPERATOR Unavailable Encounter Details Date Type Department [...] week 08/30/2023 How often do you attend mosque or islam serv ices? Patient declined 08/30/2023 Do you belong to any clubs o r organizations such as mosque groups, unions, fraternal or athletic groups, or [...] Health Questionnaire-2 Score 0 05/31/2024 [facility] of Occupat ional Health - Occupational [...] EST Office Visit [facility] [place] Zendejas [address] [facility] 110 [place] [address] Renny Hansen MD 112 [facility] 110 [place] [address] documented as of this encounter Procedures Procedure Name Priority Date/Time Associated Diagnosis Comments CT CERVICAL SPINE W IV CONTRAST 06/28/2024 8:43 AM EDT documented in this encounter Results * CT cervical spine w IV contrast (06/28/2024 8:43 AM EDT) Anatomical Region Laterality Modality Spine, C-spine Computed Tomogra phy 06/28/2024 8:43 AM EDT Narrative 06/28/2024 8:45 AM EDT The [address] [address] [address] Scan Report Signed Patient: BREANN STARKS MR#: [id number] : 1945 Acct:[id number] Age/Sex: 78 / F ADM Date: 06/26/24 Loc: CT Attending Dr: VangieStaff Physician [place] Ordering Physician: Channing Devlin M.D. Date of Service: 06/26/24 Procedure(s): CT cervical spine w con Accession Number(s): [id number] cc: RENNY HANSEN [place] [address] Patient Name: BREANN STARKS MRN: [facility]:[id number] date: 1945 Sex: F Assigned Patient Location: CT Current Patient Location: Accession/Order Number: [id number] Exam Date: 06/26/2024 14:58 Report Date: 06/28/2024 [...] due to patient body habitus and poor tyzpyg-sm-gizla ratio BONES: Reversal of normal cervical lordosis. [...] Alston M.D. Signed By: 06/28/2445 DD/ TD/TT: Train Controller: Procedure Note Radiology, Radiologist, - 06/28/[address] [place] [id number] Scan Report Signed Patient: BREANN STARKS TMR#: [id number] : 1945cct:[id number] Age/Sex: 78 / FADM Date: 06/26/24 Loc: CT Attending Dr: Non-Staff Physician Magui Ordering Physician: Channing Devlin M.D. Date of Service: 06/26/24 Procedure(s): CT cervical spine w con Accession Number(s): [id number] cc: RENNY HANSEN [place] [address] Patient Name: BREANN STARKS MRN: [facility]:[id number] date: 1945 Sex: F Assigned Patient Location: CT Current Patient Location: Accession/Order Number: [id number] Exam Date: 06/26/2024 14:58 Report Date: 06/28/2024 [...] due to patient body habitus and poor mtqtkv-kk-jcwjm ratio BONES: Reversal of normal cervical lordosis. [...] Alston M.D. Signed By:06/28/2445 DD/ 2 TD/TT: Train Controller: us Generic External Data Provider IMG CT PROCEDURES Final Result documented in this encounter Visit Diagnoses Not on filedocumented in this encounter Additional Health Concerns Assessment Noted Time PHQ-9 Depression Total Score: 1 09/06/20 23 2:00 PM EST documented as of this encounter Care Teams Environmental Engineering Manager Relationship Specialty Start Date End Date Renny Hansen MD [address] [facility] 110 [place] [address] PCP - General Internal Medicine 09/19/24 Renny Hansen MD [address] [facility] 110 [place] [address] PCP - Medical [place] 09/12/2409/11 Jazmín Calvillo NP Nurse Practitioner Family Medicine 05/17/24 09/18/24 Cindi Jenkins LSW [address] [place] [address] Mixing Tumbler Operator Family Medicine 11/06/24 12/05/24 Lisa Ramirez LPN [address] [facility] 110 [place] [address] 12/05/24 documented as of this encounter
--- OUTSIDE RECORDS SUMMARY | 2025-05-29 10:28 | XMS_ITS | Encounter Summary ---
Author Organization [facility] Address [address] [place] [address] Care Team Providers Care Type Cutter Name Role Phone Jazmín Calvillo DRIP MOLDER Unavailable [phone] Renny Hansen MD Primary Care Provider [phone] Renny Hansen MD Unavailable [phone] Cindi Jenkins SHIP WIRER Unavailable [phone] Lisa Ramirez PLUMBER APPRENTICE Unavailable Encounter Details Date Type Department Care Team (Late st Contact Info) Description 07/05/2024 Abstract [facility] [address] [place] [address] Wesley Long MD [address] [place] [address] Social History Tobacco Use Types Packs/Day Years [...] often do you attend oriental orthodox or yarsanism serv ices? Patient declined [...] Recorded Patient Health Questionnaire-2 Score 0 05/31/2024 [facility] of Occupat ional Health - Occupational [...] [address] [facility] [address] [place] [address] Renny Hansen MD [address] [facility] [address] [place] [address] documented as of this encounter Visit Diagnoses Not on filedocumented in this encounter Additional Health Concerns Assessment Noted Time PHQ-9 Depression Total Score: 1 09/06/20 23 2:00 PM EST documented as of this encounter Care Teams Type Cutter Relationship Specialty Start Date End Date Renny Hansen MD [address] [facility] [address] [place] [address] PCP - General Internal Medicine 09/19/24 Renny Hansen MD [address] [facility] 110 [place] [address] PCP - Medical [place] 09/12/2409/11 Jazmín Calvillo NP Nurse Practitioner Family Medicine 05/17/24 09/18/24 Cindi Jenkins, GIDEON [address] [place] [address] Refueling Ramp Attendant Family Medicine 11/06/24 12/05/24 Lisa Ramirez LPN [address] [facility] 110 [place] [address] 12/05/24 documented as of this encounter
--- OUTSIDE RECORDS SUMMARY | 2025-05-29 10:28 | XMS_ITS | Clinical Summary ---
Author Organization [facility] Address [id number] [address] [place] [address] Care Team Providers Care Environmental Protection Forester Name Role Phone Unavailable Primary Care Provider [...] Medical Devices Not on file Insurance [facility]IC[facility]
--- OUTSIDE RECORDS SUMMARY | 2025-05-29 10:28 | XMS_ITS | Encounter Summary ---
Author Organization [facility] Address [address] [facility] [address] Care Team Providers Care Induction Heating Equipment Setter Name Role Phone Jazmín Calvillo VP DATA Unavailable [phone] Renny Hansen MD Primary Care Provider [phone] Renny Hansen MD Unavailable [phone] Cindi Jenkins RIPSAWYER Unavailable [phone] Lisa Ramirez BIOPHYSICS SCIENTIST Unavailable Encounter Details Date Type Department Care Team (Late st Contact Info) Description 08/08/2024 Clinisync Result Encounter [facility] External Department Unsolicited Renny Hansen MD [address] [address] Social History Tobacco Use Types Packs/Day Years [...] How often do you attend yazidi or baptist serv ices? Patient declined 08/30/2023 Do you belong to any clubs o r organizations such as yazidi groups, unions, fraInstart [employer] or athletic groups, or school groups? Yes [...] Patient Health Questionnaire-2 Score 0 05/31/2024 [facility] - Occupational Stress Questionnaire Answer [...] EST Office Visit [facility] [place] Zendejas 112 [facility] 110 [place] [address] Renny Hansen MD 112 [facility] 110 [place] [address] documented as of this encounter Procedures Procedure Name Priority Date/Time Associated Diagnosis Comments XR CINERADIOGRAPHY 08/08/2024 6: 31 AM EST documented in this encounter Results * XR CINERADIOGRAPHY (08/08/2024 6:31 AM EST) Anatomical Region Laterality Modality Other 08/08/2024 6:31 AM EST Narrative 08/08/2024 6:33 AM EST The [address] [address] Fluoroscopy Report Signed Patient: BREANN HERRMANN MR#: [id number] : 1945 Acct:[id number] Age/Sex: 78 / F ADM Date: 08/07/24 Loc: [place] Attending Dr: RENNY HANSEN Ordering Physician: RENNY HANSEN Date of Service: 08/07/24 Procedure(s): [place] cineradiography Accession Number(s): [id number] cc: RENNY HANSEN [place] [address] Patient Name: BREANN HERRMANN MRN: [id number] date: 1945 Sex: F Assigned Patient Location: [place] Current Patient Location: Accession/Order Number: [id number] Exam Date: 08/07/2024 08:45 Report Date: 08/08/2024 [...] M.D. Signed By: 08/08/2433 DD/ 0 TD/TT: Pickle Maker: Procedure Note Radiology, Radiologist, MD - 08/08/2024 [place] [address] Fluoroscopy Report Signed Patient: BREANN HERRMANN TMR#: [id number] : 8Acct:[id number] Age/Sex: 78 / FADM Date: 08/07/24 Loc: [place] Attending Dr: RENNY HANSEN Ordering Physician: RENNY HANSEN Date of Service: 08/07/24 Procedure(s): [place] cineradiography Accession Number(s): [id number] cc: RENNY HANSEN [place] [id number] Patient Name: BREANN HERRMANN MRN: [id number] date: 1945 Sex: F Assigned Patient Location: [place] Current Patient Location: Accession/Order Number: [id number] Exam Date: 08/07/2024 08:45 Report Date: 08/08/2024 [...] 06:31 Dictated By: Wil Delgado M.D. Signed By:08/08/2433 DD/ 0 TD/TT: Pickle Maker: Renny Hansen MD [facility] Final Result documented in this encounter Visit Diagnoses Not on filedocumented in this encounter Additional Health Concerns Assessment Noted Time PHQ-9 Depression Total Score: 1 09/06/20 23 2:00 PM EST documented as of this encounter Care Teams Induction Heating Equipment Setter Relationship Specialty Start Date End Date Renny Hansen MD [address] [facility] 110 [place] [address] PCP - General Internal Medicine 09/19/24 Renny Hansen MD [address] [facility] 110 [place] [address] PCP - Medical [place] 09/12/2409/11 Jazmín Calvillo NP Nurse Practitioner Family Medicine 05/17/24 09/18/24 Cindi Jenkins, GIDEON [address] [place] [address] Polymerization Supervisor Family Medicine 11/06/24 12/05/24 Lisa Ramirez LPN 112 [facility] 110 [place] [address] 12/05/24 documented as of this encounter
--- OUTSIDE RECORDS SUMMARY | 2025-05-29 10:28 | XMS_ITS | Encounter Summary ---
Author Organization [facility] Address [address] [place] [address] Care Team Providers Care Bi Application Developer Name Role Phone Jazmín Calvillo ROLL ON WORKER Unavailable [phone] Renny Hansen MD Primary Care Provider [phone] Renny Hansen MD Unavailable [phone] Cindi Jenkins MACHINE PULLER AND LASTER Unavailable [phone] Lisa Ramirez PRINT BINDING AND FINISHING WORKER Unavailable Encounter Details Date Type Department Care Team (Late st Contact Info) Description 07/25/2024 Abstract [facility] [address] [place] [address] Wesley Long MD [address] [place] [address] Social History Tobacco Use Types Packs/Day Years [...] How often do you attend yazidi or mormon serv ices? Patient declined 08/30/2023 Do you [...] Recorded Patient Health Questionnaire-2 Score 0 05/31/2024 [facility] of Occupat ional Health - [...] [address] [facility] 110 [place] [address] Renny Hansen MD [address] [facility] 110 [place] [address] documented as of this encounter Visit Diagnoses Not on filedocumented in this encounter Additional Health Concerns Assessment Noted Time PHQ-9 Depression Total Score: 1 09/06/20 23 2:00 PM EST documented as of this encounter Care Teams Bi Application Developer Relationship Specialty Start Date End Date Renny Hansen MD [address] [facility] [address] [place] [address] PCP - General Internal Medicine 09/19/24 Renny Hansen MD [address] [facility] 110 [place] [address] PCP - Medical [place] 09/12/2409/11 Jazmín Calvillo NP Nurse Practitioner Family Medicine 05/17/24 09/18/24 Cindi Jenkins, GIDEON [address] [place] [address] Gas Tender Family Medicine 11/06/24 12/05/24 Lisa Ramirez LPN [address] [facility] 110 [place] [address] 12/05/24 documented as of this encounter
--- OUTSIDE RECORDS SUMMARY | 2025-05-29 10:28 | XMS_ITS | Encounter Summary ---
Author Organization [facility] Address [address] [place] [address] Care Team Providers Care Lining Stamper Name Role Phone Paulette Johnson MD Primary Care Provider [phone] Shaikh BEREKET Denis Primary Care Provider [phone] Renny Hansen MD Primary Care Provider [phone] Balta Cardenas DO Unavailable [phone] Encounter Details Date Type Department Care Team (Late st Contact Info) Description 04/28/2022 [facility] Family Medicine [address] [place] [address] Roopa Mensah MA Social History Tobacco Use [...] AM EDT documented as of this encounter Plan of Treatment Upcoming Encounters Date Type Department Care Team (Late st Contact Info) Description 07/10/2025 1:40 PM EDT Office Visit [facility] [place] [facility] [address] [place] [address] Kellie Alva MD [address] [facility] [address] [place] [address] 11/13/2025 11:00 AM EST Follow-Up [facility] Infectious Disease [address] [place] [address] Ortega Hines MD [address] [facility]/[place] [address] documented as of this encounter Visit Diagnoses Not on filedocumented in this encounter Care Teams Lining Stamper Relationship Specialty Start Date End Date Paulette Johnson MD [address]A PCP - General 05/03/22 07/04/23 Shaikh Denis MD [address] PCP - General Family Medicine 07/05/23 07/17/24 Renny Hansen MD [address] [facility] [address] [place] [address] PCP - General Internal Medicine 07/18/24 Balta Cardenas DO [address] [place] [address] Referring Physician 11/15/24 documented as of this encounter
--- OUTSIDE RECORDS SUMMARY | 2025-05-29 10:28 | XMS_ITS | Encounter Summary ---
Author Organization [facility] Address [address] [facility] [place] [address] Care Team Providers Care Sack Maker Name Role Phone Renny Hansen MD Primary Care Provider Renny Hansen MD Unavailable [phone] Lisa Ramirez LPN Unavailable Encounter Details Date Type Department Care Team (Late st Contact Info) Description 04/25/2025 Abstract [facility] [place] [facility] [address] [facility] 110 [place] [address] Renny Hansen MD 112 [facility] 110 [place] [address] Social History Tobacco Use Types Packs/Day Years [...] Health Questionnaire-2 Score 0 04/24/2025 [facility] of Occupat ional [...] No 11/12/2024 Housing Stability Vital Sign Answer Naanda e Recorded In the last 12 months, [...] any time in the past 12 m [facility], were you homeless or [...] Zendejas [address] [facility] [address] [place] [address] Renny Hansen MD [address] [facility] [address] [place] [address] documented as of this encounter Visit Diagnoses Not on filedocumented in this encounter Additional Health Concerns Assessment Noted Time PHQ-9 Depression Total Score: 1 09/06/20 23 2:00 PM EST documented as of this encounter Care Teams Sack Maker Relationship Specialty Start Date End Date Renny Hansen MD [address] [facility] 110 [place] [address] PCP - General Internal Medicine 09/19/24 Renny Hansen MD [address] [facility] 110 [place] [address] PCP - Medical [facility] 09/12/2409/11 Lisa Ramirez LPN [address] [facility] 110 [place] [address] 12/05/24 documented as of this encounter
--- NOTE | 2025-05-29 10:32 | PM.CN ---
Consult Note: HPI Data of Consult Patient: known to practice within the last 3 years Consult date: 05/29/25 Requesting Physician: Claire Clement NP Primary Care Provider: FAVIAN LUNA Consult Narrative Reason for consult: low back and right SIJ pain Narrative: Breann Starks a pleasant 79 year old female presents for evaluation of chronic low back and right SIJ pain unresponsive to > 6 weeks of PT/HEP, heat, ice, tylenol. cannot take NSAIDs on eliquis. Pt recently underwent right SIJ injection with significant pain relief ongoing, > 80% improvement in pain per pt. MATILDE improved at 28%. notes utilizing less norco since injection, does have norco 5-325mg tid prn and balcofen 10mg tid prn pain. denies fall/injury since last visit. continues to endorse moderate left shoulder pain and limitations in ROM, will be on long wall mining machine helper penicillin for infection and pt following ID at this time. She is not a surgical candidate, has been cleared by orthopedics. cc:: CC: Claire Clement NP [facility] Medical History (Updated 01/27/25 @ 10:54 by Holley Johnson MD) Arthritis ?M19.90 - Unspecified osteoarthritis, unspecified site (ICD-10) Chronic obstructive pulmonary disease ?J44.9 - Chronic obstructive pulmonary disease, unspecified (ICD-10) Peptic ulcer ?K27.9 - Peptic ulcer, site unspecified, unspecified as acute or chronic, without hemorrhage or perforation (ICD-10) Dyspnea on exertion ?R06.09 - Other forms of dyspnea (ICD-10) Anemia ?D64.9 - Anemia, unspecified (ICD-10) Hypertension ?I10 - Essential (primary) hypertension (ICD-10) Extremity edema ?R60.0 - Localized edema (ICD-10) Congestive heart failure ?I50.9 - Heart failure, unspecified (ICD-10) Atrial fibrillation ?I48.91 - Unspecified atrial fibrillation (ICD-10) Shoulder pain ?M25.519 - Pain in unspecified shoulder (ICD-10) Fatty liver ?K76.0 - Fatty (change of) liver, not elsewhere classified (ICD-10) History of shingles ?Z86.19 - Personal history of other infectious and parasitic diseases (ICD-10) Osteoarthritis ?M19.90 - Unspecified osteoarthritis, unspecified site (ICD-10) Pacemaker ?Z95.0 - Presence of cardiac pacemaker (ICD-10) Hiatal hernia ?K44.9 - Diaphragmatic hernia without obstruction or gangrene (ICD-10) Low back pain ?M54.50 - Low back pain, unspecified (ICD-10) Irregular heart beat ?I49.9 - Cardiac arrhythmia, unspecified (ICD-10) Surgical History History of shoulder replacement ?Z96.619 - Presence of unspecified artificial shoulder joint (ICD-10) S/P rotator cuff repair ?Z98.890 - Other specified postprocedural states (ICD-10) History of colonoscopy ?Z98.890 - Other specified postprocedural states (ICD-10) S/P YANELI-BSO ?Z90.710 - Acquired absence of both cervix and uterus (ICD-10) ?Z90.722 - Acquired absence of ovaries, bilateral (ICD-10) ?Z90.79 - Acquired absence of other genital organ(s) (ICD-10) H/O cardiac catheterization ?Z98.890 - Other specified postprocedural states (ICD-10) H/O arthroscopy of shoulder ?Z98.890 - Other specified postprocedural states (ICD-10) H/O arthroscopy of knee ?Z98.890 - Other specified postprocedural states (ICD-10) History of appendectomy ?Z90.49 - Acquired absence of other specified parts of digestive tract (ICD-10) History of total knee arthroplasty ?Z96.659 - Presence of unspecified artificial knee joint (ICD-10) Social History Within the past year, how often did you have a drink containing alcohol: monthly or less Smoking status: Former smoker Non-prescribed substance use: denies use Previous occupational history: retired Highest level of school completed/degree received: high school graduate Little interest or pleasure in doing things: not at all Feeling down, depressed, or hopeless: not at all Meds Home Medications and Allergies Home Medications ?Medication ?Instructions ?Recorded ?Confirmed ?Type cholecalciferol (vitamin D3) 125 5,000 unit PO DAILY 02/16/23 05/20/25 History mcg (5,000 unit) tablet (Vitamin D3) flecainide 100 mg tablet 100 mg PO Q12H 02/16/23 05/20/25 History omeprazole 40 mg capsule,delayed 40 mg PO DAILY 02/16/23 05/20/25 History release spironolactone 25 mg tablet 25 mg PO DAILY 02/16/23 05/20/25 History (Aldactone) verapamil 180 mg tablet,extended 180 mg PO Q12H 02/16/23 05/20/25 History release (Calan SR) apixaban 5 mg tablet (Eliquis) 5 mg PO BID 05/11/23 05/20/25 History furosemide 40 mg tablet 40 mg PO DAILY 03/01/24 05/20/25 History naloxone 4 mg/actuation nasal 4 mg intranasal Q3M PRN opioid 05/17/24 04/22/25 Rx spray (Narcan) overdose #2 ea hydrocodone 5 mg-acetaminophen 325 1 tab PO TID PRN pain #90 tabs 10/26/24 05/20/25 Rx mg tablet penicillin V potassium 500 mg mg 02/11/25 History tablet baclofen 10 mg tablet 10 mg PO TID #90 tabs 03/06/25 05/20/25 Rx ipratropium 0.5 mg-albuterol 3 mg ml inhalation 04/22/25 History (2.5 mg base)/3 mL nebulization soln Allergies Allergy/AdvReac Type Severity Reaction Status Date / Time No Known Drug Allergies Allergy Verified 05/20/25 11:35 Exam Constitutional Documenting provider has reviewed patient's vital signs: yes Common normals: no apparent distress, oriented x3, healthy appearing, alert and well nourished General appearance: cooperative [facility] Common normals: normocephalic, hearing grossly normal bilaterally and moist oral mucous membranes Head and scalp: normocephalic Eye Common normals: PERRL Pupil: PERRL Neck & C-Spine Common normals: full ROM General: normal visual inspection Chest Common normals: inspection of chest normal Respiratory Common normals: normal respiratory effort, no retractions and no use of accessory muscles Back & Pelvis Lumbar spine/lower back: straight leg raise negative bilaterally; ROM not limited, no pain with ROM and no lumbar spinal tenderness Sacroiliac joints: SI joints normal Other: strength 5/5 in BLE sensation intact BLE Extremity Other: left shoulder limited ROM with overhead movement, pain with adduction/abduction and rotation. Neuro Common normals: oriented x3 Sensorium/orientation: alert Psych Common normals: mental status grossly normal, thought process normal, cooperative, affect normal, speech normal and activity/motor behavior normal Speech: normal speech Thought process: normal thought process Results Additional Findings Additional findings: If on a controlled substance or opioids, I have checked an [place] report on this patient and there are no aberrancies noted in the prescribing history.??If on a controlled substance or opioid a drug screen was completed and reviewed within the last year, and if there has not been a drug screen completed we ordered one today to monitor higher risk, state monitored pain medication use. As part of providing excellent, safe, comprehensive care, the following was completed at our patient's visit: 1. A medication reconciliation and review to ensure accurate knowledge of current/active medications, including asking our patients to inform us about any [id number] medications or herbal remedies/nutritional supplements/alternative remedies. 2. A review to specifically ensure our patients have had annual screening for screening for depression, screening for tobacco use, and screening for unhealthy alcohol use. For concerning screenings had a discussion with the patient, provided patient education, and recommended follow-up with primary care provider when appropriate. If patient noted with a risk of falling, they received education on strength, gait, and balance training to prevent future risk of falling. Portions of this note may have been carried over from the previous visit and updated as appropriate. Please note this office utilizes paper charting in addition to the electronic medical record. A list of current medications, vitals, and PMH is available there as the clinical staff outside of myself do not have access to [facility] charting during the clinic day operations. As part of providing quality comprehensive care the current medications, vitals, and PMH were reviewed in the paper chart. Assessment and Plan Assessment and Plan (1) Sacroiliitis: (2) Lumbar stenosis with neurogenic claudication: (3) Lumbar spondylosis: (4) Left shoulder pain: (5) Chronic use of opiate drug for therapeutic purpose: Plan pain well controlled, encouraged prn use of norco. continue baclofen 10mg TID PRN pain/spasms continue HEP as tolerated, can consider formal PT for left shoulder pain/limited ROM f/u 3 months, sooner if needed
--- OUTSIDE RECORDS SUMMARY | 2025-05-29 10:37 | XMS_ITS | CCD ---
Author Organization [facility] Care Team Providers Care Inspector And Tester Name Role Phone ZANE MCGUIRE Admitting Unavailable DMITRIY HENNESSY Referring Unavailable LUISANA JOHNSON Primary Care Unavailable ZANE MCGUIRE Attending Unavailable DMITRIY HENNESSY Surgeon Unavailable [place] Procedure Practitioner Unavailab Hong Adler Unavailable JOHNSON [...] Admitting Unavailable RIVER ., KAYLEY Attending Unavailable CARLISLE, DR HONG Morgan Consulting Unavailable JOHNSON ., DR ULISANA Jarquin Primary Care Unavailable GRECHNY ., DANIELLE [...] Attending Unavailable HERSON CANTU Primary Care Unavailable JOHNOSN ., DR LUISANA Jarquin Primary Care Unavailable FAWWAD, SAHU H Attending Unavailable FAWWAAlysa, H Admitting Unavailable SAMSA ., LUIZ Admitting Unavailable SAMSA ., LUIZ Attending Unavailable SAMSA ., LUIZ Consulting Unavailable JOHNSON ., DR LUISANA Jarquin Primary Care Unavailable THANG Clement Attending Provider [phone] MD Janice Denis Primary Care Provider THANG Clement Attending Provider Shaikh Denis MD Primary Care Provider Jair ALEXANDER Attending Unavailable SHAIKH DENIS Referring Unavailable Jair ALEXANDER Attending Unavailable MD Santos Denisikh Primary Care Provider DO James Jones Attending Provider [phone] YOLY Cruz Attending Provider [phone] Luisana Johnson MD Primary Care Provider [phone] Pedro Pablo Cruz MD Unavailable LUISANA JOHNSON Primary Care Unavailable BOO BUCHANAN Attending Unavailable PEDRO PABLO CRUZ Referring Unavailable LUISANA JOHNSON Primary Care Unavailable BOO BUCHANAN Referring Unavailable Wesley Long MD Primary Care Provider Monster Calvillo NP Unavailable Shaikh Denis MD Primary Care Provider Renny Hansen MD Primary Care Provider Pedro Pablo Cruz PA-C Attending Provider [phone] Renny Hansen II Primary Care Provider Pedro Pablo Cruz PA-C Attending Provider Renny Hansen II Referring Provider Katharina Toledo APRN Attending Provider Dmitriy Duque DO Attending Provider [phone] Sakina Cardenas DO Attending Provider Renny Hansen II Referring Provider [facility] APRN Attending Provider Renny Hansen MD Unavailable Gregory AQUATICS LIFEGUARD, Cindi Unavailable Ramirez CONFIDENTIAL INVESTIGATOR, Lisa Unavailable Unavailable Ramirez CONFIDENTIAL INVESTIGATOR, Lisa Unavailable Renny Hansen II Primary Care Provider Emma Rose Attending Provider Renny Hansen II Referring Provider Katharina Toledo APRN Attending Provider DMITRIY DUQUE Attending Unavailable RENNY HANSEN Attending [...] HANSEN Referring Unavailable LUISANA LEAL Attending Unavailable DEREK HOLT Attending Unavailable KOLTON ALTMAN Attending Unavailable KOLTON ALTMAN Attending Unavailable DEREK HOLT Referring Unavailable KOLTON ALTMAN Attending Unavailable DMITRIY HENNESSY Referring Unavailable DMITRIY HENNESSY Referring Unavailable DEREK HOLT Attending Unavailable SAKINA CARDENAS Referring Unavailable DEREK HOLT Attending Unavailable JAIR FLORIAN Attending Unavailable JAIR FLORIAN Attending Unavailable DMITRIY HENNESSY Referring Unavailable JAIR FLORIAN Attending Unavailable Katherine CUBA, Miguel Sainz Attending Unavailable Giedraitis , Anddelmar Sainz Attending Unavailable Giedraitis , Anddelmar Sainz Attending Unavailable Giedraitis , Anddelmar Sainz Attending Unavailable Giedraitis , Anddelmar Sainz Attending Unavailable Giedraitis , Anddelmar Sainz Attending Unavailable Giedlobito CUBA, Miguel Sainz Attending Unavailable Dmitriy Duque Admitting Unavailable Renny Hansen Primary Care Unavailable Dmitriy Duque Attending Unavailable Renny Hansen Primary Care Unavailable Pedro Pablo Cruz Attending Unavailable Pedro Pablo Cruz Admitting Unavailable Taniya ARMENTA, Juan Love Attending Unavaila ble Taniya II, Juan Love Admitting Unavaila ble Renny Hansen Referring Unavailable Renny Hansen Primary Care Unavailable Renny Hansen Primary Care Unavailable Sakina Cardenas Jr Attending Unavailable Sakina Cardenas Jr Admitting Unavailable Allergies Allergy Classification Reported Allergen(s) Allergy Type Date of Onset Reaction(s) Facility NSAIDs (1 source) meloxicam; Translations: [Mobic] Drug Allergy [facility] Repository Unclassified (1 source) No Known Medication Allergies; Translations: [No Known Medication Allergies] Propensity to adverse reactions (disorder) [facility] Repository (1 source) novacaine; Translations: [novacaine] Propensity to adverse reactions (disorder) 2 [facility] Repository (20 sources) NSAIDs Propensity to adverse reactions [address] [facility] (7 sources) Adhesive agent; Translations: [adhesive] Allergy to substance 4 [facility] (3 sources) NSAIDS (Non-Steroidal Anti-Inflamma Allergy to substance 4 [facility] (20 sources) Digoxin Drug Allergy 4 [facility] Work Phone: (20 sources) Wound Dressing Adhesive Drug Allergy 4 [facility] Medications Current Medications Medication Drug Class(es) Dates Sig (Normalized) Sig (Original) acetaminophen 325 mg / HYDROcodone bitartrate 5 mg oral tablet (20 sources) Opioid Agonist Start: 06-21-2024 take 1 tablet by mouth in the morning, then take 1 tablet by mouth in the evening, then take 1 tablet by mouth at bedtime HYDROcodone-aceta minophen ([place]) 5-325 MG tablet Take 1 tablet by mouth in the morning and 1 tablet in the evening and 1 tablet before bedtime. 06/21/2024 Active Start: 04-11-2024 End: 06-15-2024 take 1 tablet by mouth three times daily as needed for pain HYDROcodone-acetaminophen ([place]) 5-325 MG tablet Indications: Chronic left shoulder [...] (Duplicate order) take 1 capsule by mo uth every [...] Daily, # 90 tab(s), Refills(s) 0, Pharmacy: [facility]/pharmacy #[id number], 141, cm, 01/11/23 10:30:00 EDT, Height/Length Dosing, [...] disease (20 sources) Atherosclerotic heart disease of [place] coronary artery without angina pectoris; Translations: [Coronary [...] 3 Episodic Other aftercare (1 source) Other watermelon inspector (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 Stills achy and very painful. [facility] Orders Onlyon 05-15-2025 Orders Only [id number] Oliver Starks T 1945 F Date Provider Department Center 05/15/2025 [id number], HISTORICAL [facility] INF Carol Ann Heal Family History Adopted: Yes Family history unknown: Yes Family Status - Relation Status Age at Mother Father [facility] No Panel Informationon 04-25 STAPHYLOCOCCUS EPIDERMIDIS, HAEMOLYTICUS, LUGDUNENSIS, SAPROPHYTICUS (URINA 0 [facility] STAPHYLOCOCCUS EPIDERMIDIS, HAEMOLYTICUS, LUGDUNENSIS, SAPROPHYTICUS (URINA Not detected [facility] URINARY TRACT INFECTION (HTR X)on 04-25-2025 [...] AGALACTIAE (GROUP B STREP) Not detected [facility] STREPTOCOCCUS PYOGENES (GROUP A STREP) 0 [facility] STREPTOCOCCUS PYOGENES (GROUP A STREP) Not detected [facility] TET B, TET M 27.112 Abnormal [facility] Healthcare TET B, TET M Detected Abnormal [facility] ALL CBC WITH AUTO DIFFon BASOPHILS ABSOLUTE AUTO 0.1 [facility] Basophils/100 WBC (Bld) 0.6 % 0.2 - 2.0 % [facility] Eosinophils/100 WBC (Bld) 2.2 % 0.9 - 7.0 % [facility] Erythrocyte distribution width (RBC) [Ratio] 16.6 % High 11.0 - 15.0 % [facility] Hematocrit (Bld) [Volume fraction] 26.4 % Low 36.0 - 48.0 % [facility] Hemoglobin (Bld) [Mass/Vol] 7.9 g/dL Low 12.0 - 16.0 g/dL [facility] IMMATURE GRANULOCYTES ABS AUTO 0.02 [facility] Immature granulocytes/100 WBC (Bld) 0.2 % 0.0 - 0.5 % [facility] Interpretation and review of laboratory results Abnormal [facility] LYMPHOCYTES ABSOLUTE AUTO 2 [facility] Lymphocytes/100 WBC (Bld) 23.5 % 20.5 - 60.0 % [facility] MCH (RBC) [Entitic mass] 22.3 pg Low 26.7 - 34.0 pg [facility] MCHC (RBC) [Mass/Vol] 29.9 g/dL 29.9 - 35.2 g/dL [facility] MCV (RBC) [Entitic vol] 74.6 fL Low 81.0 - 99.0 fL [facility] MONOCYTES ABSOLUTE AUTO 0.6 [facility] Monocytes/100 WBC (Bld) 7.1 % 1.7 - 12.0 % [facility] NEUTROPHILS ABSOLUTE AUTO 5.7 [facility] Neutrophils/100 WBC (Bld) 66.4 % 43.0 - 75.0 % [facility] Platelet mean volume (Bld) [Entitic vol] 8.7 fL Low 9.5 - 13.5 fL [facility] TBH EO # 0.2 [facility] PLT 353 [facility] RBC 3.54 Low [facility] WBC 8.6 [facility] Urinalysis macro (dipstick) panel (U)on 04-24-2025 Bilirubin, UA Negative Negative - 4(70) +++ mg/dL [facility] Blood, UA Positive Negative - 50 Shadi/mcL [facility] Clarity, UA Clear [facility] Color, UA Yellow [facility] Glucose, UA Negative Negative - 1999(110) ++++ mg/dL [facility] Interpretation and review of laboratory results Abnormal [facility] Ketones, UA Negative Negative - 160(16) ++++ mg/dL [facility] Leukocytes, UA Negative Negative - 500+++ Rosette/mcL [facility] Nitrite, UA Negative Negative - Positive [facility] pH, UA 6 5 - 9 [facility] Protein, UA Negative Negative - 1999(20) ++++ mg/dL [facility] Spec Grav, UA 1.05 1 - 1.03 [facility] Urobilinogen, UA 0.2 0.2 - 12 mg/dL [facility] ALL BASIC METABOLIC PANELon 02-21-2025 Anion gap [Moles/Vol] 13.7 mmol/L [facility] Calcium [Mass/Vol] 9.3 mg/dL 8.5 - 10. 1 mg/dL [facility] Chloride [Moles/Vol] 100 mmol/L 98 - 10 7 mmol/L [facility] CO2 [Moles/Vol] 27.6 mmol/L 21.0 - 32.0 mmol/L [facility] Creatinine [Mass/Vol] 0.78 mg/dL 0.55 - 1.02 mg/dL [facility] GFR/1.73 sq M.predicted CKD-EPI (S/P/Bld) [Vol rate/Area] >60 >=60 mL/min/1.73m 2 [facility] Glucose [Mass/Vol] 100 mg/dL 74 - 106 mg/dL [facility] Interpretation and review of laboratory results Abnormal [facility] Potassium [Moles/Vol] 4.3 mmol/L 3.5 - 5.1 mmol/L [facility] Sodium [Moles/Vol] 137 mmol/L 136 - 145 mmol/L [facility] TBH EGFR-NON AF TANZANIAN >60 >=60 mL/min/1.73m 2 [facility] Urea nitrogen [Mass/Vol] 22 mg/dL High 7.0 - 18.0 mg/dL [facility] Urea nitrogen/Creatinine [Mass ratio] 28.2 mg/mg [facility] ALL C REACTIVE PROTEINon CRP [Mass/Vol] mg/L [facility] - 0.50 mg/dL [facility] No Panel Informationon 02-21 [facility] Follow-Upon 02-20-2025 Follow-Up [id number] Oliver Starks da T 1945 F Date Provider Department Center 02/20/2025 JAIR [facility]OLAND [facility] INF Carol Annvaldemar Ramos Family History Adopted: Yes Family history unknown: Yes Family Status - Relation Status Age at Mother Father Level of Service:18195 [place] OFFICE/OUTPATIENT ESTABLISHED MOD MDM 30 MIN [facility] Orders Onlyon 02-13-2025 Orders Only [id number] Oliver Starks da T 1945 F Date Provider Department Center 02/13/2025 DMITRIY IVERSON [facility] Family History Adopted: Yes Family history unknown: Yes Family Status - Relation Status Age at Mother Father [facility] 36on 01-18-2025 36 I called the patient . Labs are okay. Continue penicillin. Normal [facility] Telephoneon 01-18-2025 Telephone [id number] Oliver Starks da T 1945 F Date Provider Department Center 01/18/2025 JAIR [facility] INF Carol Ann Heal Family History Adopted: Yes Family history unknown: Yes Family Status - Relation Status Age at Mother Father [facility] BASIC METABOLIC PANELon 05-0 Anion gap [Moles/Vol] 10 mmol/L Normal 7-20 [facility] Comment on above: Performed By: #### L [id number] ####[facility] (BEAKER)[address] [place] [address] Calcium [Mass/Vol] 8.9 mg/dL Normal 8.6-10.3 [facility] Comment on above: Performed By: #### L [id number] ####[facility] (BEAKER)[address] [place] [address] Chloride [Moles/Vol] 103 mmol/L Normal 98-107 [facility] Comment on above: Performed By: #### L [id number] ####[facility] (BEAKER)[address] [place] [address] CO2 [Moles/Vol] 26 mmol/L Normal 21-31 [facility] Comment on above: Performed By: #### L [id number] ####[facility] ([facility]AKER)[address] [place] [address] Creatinine [Mass/Vol] 0.64 mg/dL Normal 0.60-1.20 [facility] Comment on above: Performed By: #### L [id number] ####[facility] ([facility]ER)[address] [place] [address] GLOMERULAR FILTRATION RATE ML/MIN/1.73 SQ M.PREDICTED 91.0 mL/min/1.73m*2 Normal >60.0 [facility] Comment on above: Result Comment: [facility]???s estimated glomerular filtration rate (eGFR) [...] of individuals. Performed By: #### L [id number] ####[facility] ([facility]ER)[address] [place] [address] Glucose [Mass/Vol] 92 mg/dL Normal 70-100 [facility] Comment on above: Performed By: #### L [id number] ####[facility] ([facility])[address] [place] [address] Potassium [Moles/Vol] 4.1 mmol/L Normal 3.5-5.1 [facility] Comment on above: Performed By: #### L [id number] ####[facility] ([facility])[address] [place] [address] Sodium [Moles/Vol] 135 mmol/L Low 136-145 [facility] Comment on above: Performed By: #### L [id number] ####[facility] ([facility])[address] [place] [address] Urea nitrogen [Mass/Vol] 17 mg/dL Normal 7-25 [facility] Comment on above: Performed By: #### L [id number] ####[facility] ([facility])[address] [place] [address] UREA NITROGEN/CREATININE (MASS RATIO) IN SER/PLAS 26.6 Normal [facility] Comment on above: Performed By: #### L [id number] ####[facility] ([facility])[address] [place] [address] C-REACTIVE PROTEINon 025 C REACTIVE PROTEIN (MG/L) IN SER/PLAS 6.8 mg/L High <=5.0 [facility] Comment on above: Result Comment: Test ing performed using a new methodology, turbidimetry. Normal ranges have been updated. Old normal range was <8 mg/L. Performed By: #### L [id number] ####[facility] ([facility])[address] [place] [address] CBC WITH AUTO DIFFERENTIALon 01-17-2025 Basophils (Bld) [#/Vol] 0.07 10*3/uL Normal 0.00-0.20 [facility] Comment on above: Performed By: #### L [id number] #### [facility] ([facility]) [address] [place] [address] Basophils/100 WBC (Bld) 0.9 % Normal 0.0-1.0 [facility] Comment on above: Performed By: #### L [id number] #### [facility] (BEAKER) [address] [place] [address] Eosinophils (Bld) [#/Vol] 0.16 10*3/uL Normal 0.00-0.50 [facility] Comment on above: Performed By: #### L [id number] #### [facility] ([facility]ER) [address] [place] [address] Eosinophils/100 WBC (Bld) 2.2 % Normal 0.0-6.0 [facility] Comment on above: Performed By: #### L [id number] #### [facility] ([facility]ER) [address] [place] [address] Erythrocyte distribution width (RBC) [Ratio] 18.4 % High 11.5-15.0 [facility] Comment on above: Performed By: #### L [id number] #### [facility] ([facility] [address] [place] [address] ERYTHROCYTE MEAN CORPUSCULAR HEMOGLOBIN CONCENTRATION (G/DL) BY AUTOMATED 29.6 g/dL Low 32.0-35.0 [facility] Comment on above: Performed By: #### L [id number] #### [facility] ([facility]) [address] [place] [address] Hematocrit (Bld) [Volume fraction] 33.1 % Low 36.0-45.0 [facility] Comment on above: Performed By: #### L [id number] #### [facility] ([facility]) [address] [place] [address] Hemoglobin (Bld) [Mass/Vol] 9.8 g/dL Low 12.0-15.0 [facility] Comment on above: Performed By: #### L [id number] #### [facility] ([facility]) [address] [place] [address] Immature granulocytes (Bld) [#/Vol] 0.02 10*3/uL Normal 0.00-0.20 [facility] Comment on above: Performed By: #### L [id number] #### [facility] ([facility] [address] [place] [address] Immature granulocytes/100 WBC (Bld) 0.3 % Normal 0.0-1.0 [facility] Comment on above: Performed By: #### L [id number] #### [facility] ([facility]) [address] [place] [address] Lymphocytes (Bld) [#/Vol] 1.32 10*3/uL Normal 1.20-4.00 [facility] Comment on above: Performed By: #### L [id number] #### [facility] ([facility]) [address] [facility] [place] [address] Lymphocytes/100 WBC (Bld) 17.9 % Low 20.0-45.0 [facility] Comment on above: Performed By: #### L [id number] #### [facility] ([facility]) [address] [place] [address] MCH (RBC) [Entitic mass] 25.1 pg Low 27.0-33.0 [facility] Comment on above: Performed By: #### L [id number] #### [facility] ([facility]) [address] [facility] [place] [address] MCV (RBC) [Entitic vol] 84.7 fL Normal 82.0-98.0 [facility] Comment on above: Performed By: #### L [id number] #### [facility] ([facility]) [address] [facility] [place] [address] Monocytes (Bld) [#/Vol] 0.50 10*3/uL Normal 0.10-1.00 [facility] Comment on above: Performed By: #### L [id number] #### [facility] ([facility]) [address] [facility] [place] [address] Monocytes/100 WBC (Bld) 6.8 % Normal 5.0-12.0 [facility] Comment on above: Performed By: #### L [id number] #### [facility] ([facility]) [address] [place] [address] Neutrophils (Bld) [#/Vol] 5.32 10*3/uL Normal 1.60-7.60 [facility] Comment on above: Performed By: #### L [id number] #### [facility] ([facility]) [address] [place] [address] Neutrophils/100 WBC (Bld) 71.9 % Normal 40.0-72.0 [facility] Comment on above: Performed By: #### L [id number] #### [facility] ([facility]) [address] [place] [address] NRBC (PER 100 WBCS) BY AUTOMATED COUNT 0.0 % Normal 0 [facility] Comment on above: Performed By: #### L [id number] #### [facility] ([facility]) [address] [place] [address] PLATELETS (10*3/UL) IN BLOOD AUTOMATED COUNT 338 10*3/uL Normal 150-400 [facility] Comment on above: Performed By: #### L [id number] #### [facility] ([facility]) [address] [place] [address] RBC (Bld) [#/Vol] 3.91 10*6/uL Normal 3.80-5.[address] [facility] Comment on above: Performed By: #### L [id number] #### [facility] ([facility]) [address] [place] [address] WBC (Bld) [#/Vol] 7.39 10*3/uL Normal 4.00-10.[address] [facility] Comment on above: Performed By: #### L [id number] #### [facility] ([facility]) [address] [place] [address] Office Visiton 01-17-2025 Follow-up visit [id number] Oliver Starks 1945 F Date Provider Department Center 01/17/2025 SharonCOLEMANFLORIANJAIR [facility]F Carol Ann Heal Family History Adopted: Yes Family history unknown: Yes Family Status - Relation Status Age at Mother Father Level of Service:61185 [place] OFFICE/OUTPATIENT NEW [facility]IGH [facility] 60 MINUTES Reason for Visit and Comments: New Patient [632] [facility] Orders Onlyon 01-17-2025 Orders Only [id number] Oliver Starks 1945 F Date Provider Department Center 01/17/2025 MEHREEN BRAY [facility] DERM Carol Ann Heal Family History Adopted: Yes Family history unknown: Yes Family Status - Relation Status Age at Mother Father [facility] 36on 01-07-2025 36 Advised patient to take 25mg of spirolactone. Patient advised she has 50mg tablet and will cut them in 1/2 until they are gone, then she will call for a new script. [facility] Telephoneon 01-07-2025 Telephone [id number] Oliver Starks 1945 F Date Provider Department Center 01/07/2025 HaleyKARINA OSCAR [facility] INF Carol Ann Heal Family History Adopted: Yes Family history unknown: Yes Family Status - Relation Status Age at Mother Father [facility] Telephoneon 01-04-2025 Telephone [id number] Oliver Starks 1945 F Date Provider Department Center 01/04/2025 JOSEPH DAWSON AMISH Lubin Family History Adopted: Yes Family history unknown: Yes Family Status - Relation Status Age at Mother Father [facility] US axillaon 01-03-2025 [facility] [place] [address] Ultrasound Report Signed Patient: Breann Starks MR#: [id number] 171 : 1945 Acct:[id number] Age/Sex: 79 / F ADM Date: 01/03/25 Loc: [facility]: [facility] Dr: Katharina Toledo APRN Ordering Provider: Juan J Adamowicz, II, DO Date of Service: 01/03/25 US/US axilla: R59.0 - Localized enlarged lymph nodes Copies to: Katharina Aj CONSTANTINE Toledo, II, DO Left axillary ultrasound INDICATION: Lymphadenopathy [...] Dimitrios Blanco M.D.01/03/2025 3:42 PM Dictation Location: [facility] Tech: Ghazal Wilson Transcribed By: [facility] 01/03/25 1542 Dictated By: Dimitrios Blanco MD 01/03/25 1532 Signed By: 01/03/25 1542 Normal [facility] Follow-Upon 01-01-2025 Follow-Up [id number] Oliver Starks 1945 F Date Provider Department Center 01/01/2025 DEREK NEUMANN [facility] Family History Adopted: Yes Family history unknown: Yes Family Status - Relation Status Age at Mother Father Level of Service:34292 [place] OFFICE/OUTPATIENT ESTABLISHED LOW MDM 20 MIN (GC) Reason for Visit and Comments: Follow-up [614817] Pain [136] Normal [facility] Office Visiton 12-24-2024 Follow-up visit [id number] Oliver Starks 1945 F Date Provider Department Center 12/24/2024 [id number] ALTMAN Yulisa Tristian Family History Adopted: Yes Family history unknown: Yes Family Status - Relation Status Age at Mother Father Level of Service:49678 [place] OFFICE/OUTPATIENT ESTABLISHED MOD MDM 30 MIN Reason for Visit and Comments: Coronary Artery Disease [187] Hypertension [140217] Congestive Heart Failure [127] Hyperlipidemia [182] 3 month follow up [Other] Normal [facility] ALL BASIC METABOLIC PANELon 12-21-2024 Anion gap [Moles/Vol] 11.7 mmol/L [facility] Calcium [Mass/Vol] 9.1 mg/dL 8.5 - 10. [...] mmol/L [facility] TBH EGFR-NON AF TANZANIAN 55 Low >=60 mL/min/1.73m 2 [facility] Urea nitrogen [Mass/Vol] 22 mg/dL High 7.0 - 18.0 mg/dL [facility] Urea nitrogen/Creatinine [Mass ratio] 22.4 mg/mg [facility] C-REACTIVE PROTEINon 025 C REACTIVE PROTEIN (MG/L) IN SER/PLAS 9.6 mg/L High <=5.0 [facility] Comment on above: Result Comment: Test ing performed using a new methodology, turbidimetry. Normal ranges have been updated. Old normal range was <8 mg/L. Performed By: #### L [id number] ####[facility] ([facility])[address] [facility] [place] [address] CBC WITH AUTO DIFFERENTIALon 11-27-2024 Basophils (Bld) [#/Vol] 0.07 10*3/uL Normal 0.00-0.20 [facility] Comment on above: Performed By: #### L [id number] #### [facility] ([facility]) [address] [place] [address] Basophils/100 WBC (Bld) 0.7 % Normal 0.0-1.0 [facility] Comment on above: Performed By: #### L [id number] #### [facility] ([facility]) [address] [place] [address] Eosinophils (Bld) [#/Vol] 0.13 10*3/uL Normal 0.00-0.50 [facility] Comment on above: Performed By: #### L [id number] #### [facility] ([facility]) [address] [place] [place] [address] Eosinophils/100 WBC (Bld) 1.2 % Normal 0.0-6.0 [facility] Comment on above: Performed By: #### L [id number] #### [facility] ([facility]) [address] [place] [address] Erythrocyte distribution width (RBC) [Ratio] 17.0 % High 11.5-15.0 [facility] Comment on above: Performed By: #### L [id number] #### [facility] ([facility]) [address] [place] [address] ERYTHROCYTE MEAN CORPUSCULAR HEMOGLOBIN CONCENTRATION (G/DL) BY AUTOMATED 30.8 g/dL Low 32.0-35.0 [facility] Comment on above: Performed By: #### L [id number] #### [facility] ([facility]) [address] [place] [place] [address] Hematocrit (Bld) [Volume fraction] 38.6 % Normal 36.0-45.0 [facility] Comment on above: Performed By: #### L [id number] #### [facility] ([facility]) [address] [place] [address] Hemoglobin (Bld) [Mass/Vol] 11.9 g/dL Low 12.0-15.0 [facility] Comment on above: Performed By: #### L [id number] #### [facility] ([facility]) [address] [place] [address] Immature granulocytes (Bld) [#/Vol] 0.15 10*3/uL Normal 0.00-0.20 [facility] Comment on above: Performed By: #### L [id number] #### [facility] ([facility]) [address] [place] [address] Immature granulocytes/100 WBC (Bld) 1.4 % High 0.0-1.0 [facility] Comment on above: Performed By: #### L [id number] #### [facility] ([facility]) [address] [place] [place] [address] Lymphocytes (Bld) [#/Vol] 2.18 10*3/uL Normal 1.20-4.00 [facility] Comment on above: Performed By: #### L [id number] #### [facility] ([facility]) [address] [place] [address] Lymphocytes/100 WBC (Bld) 20.4 % Normal 20.0-45.0 [facility] Comment on above: Performed By: #### L [id number] #### [facility] ([facility]) [address] [place] [address] MCH (RBC) [Entitic mass] 26.0 pg Low 27.0-33.0 [facility] Comment on above: Performed By: #### L [id number] #### [facility] ([facility]) [address] [place] [address] MCV (RBC) [Entitic vol] 84.5 fL Normal 82.0-98.0 [facility] Comment on above: Performed By: #### L [id number] #### [facility] ([facility]) [address] [place] [address] Monocytes (Bld) [#/Vol] 0.84 10*3/uL Normal 0.10-1.00 [facility] Comment on above: Performed By: #### L [id number] #### [facility] ([facility]) [address] [place] [address] Monocytes/100 WBC (Bld) 7.9 % Normal 5.0-12.0 [facility] Comment on above: Performed By: #### L [id number] #### [facility] ([facility]) [address] [place] [address] Neutrophils (Bld) [#/Vol] 7.33 10*3/uL Normal 1.60-7.60 [facility] Comment on above: Performed By: #### L [id number] #### [facility] ([facility]) [address] [place] [address] Neutrophils/100 WBC (Bld) 68.4 % Normal 40.0-72.0 [facility] Comment on above: Performed By: #### L [id number] #### [facility] ([facility]) [address] [place] [address] NRBC (PER 100 WBCS) BY AUTOMATED COUNT 0.0 % Normal 0 [facility] Comment on above: Performed By: #### L [id number] #### [facility] ([facility]) [address] [place] [address] PLATELETS (10*3/UL) IN BLOOD AUTOMATED COUNT 411 10*3/uL High 150-400 [facility] Comment on above: Performed By: #### L [id number] #### [facility] [address] [place] [address] RBC (Bld) [#/Vol] 4.57 10*6/uL Normal 3.80-5.[address] [facility] Comment on above: Performed By: #### L [id number] #### [facility] ([facility]) [address] [place] [address] WBC (Bld) [#/Vol] 10.70 10*3/uL High 4.00-10.60 [facility] Comment on above: Performed By: #### L [id number] #### [facility] ([facility]) [address] [place] [address] Follow-Upon 11-27-2024 Follow-Up [id number] Woyan,Senai da T 1945 F Date Provider Department Center 11/27/2024 DEREK NEUMANN MP ORTHO MPORTHO Family History Adopted: Yes Family history unknown: Yes Family Status - Relation Status Age at Mother Father Level of Service:00482 [place] OFFICE/OUTPATIENT ESTABLISHED LOW MDM 20 MIN Reason for Visit and Comments: Follow-up [705105] [facility] Labon 11-27-2024 Lab [id number] Woyan,Senai da T 1945 F Date Provider Department Center 11/27/2024 2244-[facility] MP LAB RESOURCE MP DRAW Medical Pavi Family History Adopted: Yes Family history unknown: Yes Family Status - Relation Status Age at Mother Father [facility] SEDIMENTATION RATEon 025 SEDIMENTATION RATE, ERYTHROCYTE 96 mm/hr High <30 [facility] Comment on above: Performed By: #### L [id number] #### [facility] ([facility]) [address] [place] [address] Orders Onlyon 11-19-2024 Orders Only [id number] Woyan,Senai da T 1945 F Date Provider Department Center 11/19/2024 829-JAMES ALLEN MP ORTHO MPORTHO Family History Adopted: Yes Family history unknown: Yes Family Status - Relation Status Age at Mother Father Normal [facility] Orders Onlyon 11-16-2024 Orders Only [id number] Woyan,Senai da T 1945 F Date Provider Department Center 11/16/2024 [id number]-BHMPFXWJDLYACARROL COHEN*MP ORTHO MPORTHO Family History Adopted: Yes Family history unknown: Yes Family Status - Relation Status Age at Mother Father [facility] 36on 11-15-2024 36 Patient was informed and she is going to [facility] and states they do not have a radiologist to do the aspiration for the order sent over by Dr. Holt and patient will have to go somewhere else. Normal [facility] BODY FLUID CULTUREon 025 Bacteria identified Cx Nom (Unsp spec) STREPTOCOCCUS SANGUINIS Abnormal [facility] Comment on above: Result Comment: Isol ated from Broth Culture Streptococcus sanguinis Presumptive Identification Performed By: #### L [id number] ####[facility] ([facility])[address] [place] [address] GRAM STAIN RESULT Normal [facility] Comment on above: Result Comment: Many Polymorphonuclear leukocytes No organisms seen Performed By: #### L [id number] ####[facility] ([facility])[address] [place] [address] Office Visiton 11-13-2024 Follow-up visit [id number] Wojj,Senai da T 1945 F Date Provider Department Center 11/13/2024 DEREK NEUMANN MP Family History Adopted: Yes Family history unknown: Yes Family Status - Relation Status Age at Mother Father Level of Service:55783 [place] OFFICE/OUTPATIENT NEW LOW MDM 30 MINUTES (25,GC) Reason for Visit and Comments: Pain [136] [facility] Orders Onlyon 11-13-2024 Orders Only [id number] Woyan,Senai da T 1945 F Date Provider Department Center 11/13/[id number]-KFQBHAPCGMARIELOS MARY MP Family History Adopted: Yes Family history unknown: Yes Family Status - Relation Status Age at Mother Father [facility] 36on 11-08-2024 36 Patient was schedule Normal [facility] 36 Patient needs an elisabet t layla poss infection per dr cardenas. 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 [facility] Anisocytosis LM Ql (Bld)Orde red By: Sakina Cardenas on 10-24-2024 Anisocytosis Ql (Bld) Anisocytosis [Presence] in Blood by Light microscopy [facility] Basophils Auto (Bld) [#/Vol] Ordered By: Sakina Cardenas on 10-24-2024 Basophils (Bld) [#/Vol] Automated basophil count [facility] Basophils/100 WBC Auto (Bld) Ordered By: Sakina Cardenas on 10-24-2024 Basophils/100 WBC (Bld) Automated basophil % [facility] Basophils/100 WBC Manual cnt (Bld)Ordered By: Sakina Cardenas on 10-24-2024 Basophils/100 WBC (Bld) Basophils/100 leukocytes in Blood by Manual count 0-2 [facility] C reactive protein [Mass/vol ume] in Serum or PlasmaOrdered By: Sakina Cardenas on 10-24-2024 CRP [Mass/Vol] C reactive protein [Mass/volume] in Serum or Plasma High 0.0-0.5 [facility] C-Reactive Proteinon 025 C-Reactive Protein 1.4 mg/dL High 0.0-0.5 [facility] Comment on above: Result Comment: PERF ORMED BY: [facility] [address] [place] [address] PATHOLOGIST PIT SLAGMAN KATHLEEN RAMOS M.D. Performed By: #### C RP #### [facility] [address] CRP [Mass/Vol]on 10-24-2024 C-REACTIVE PROTEIN 1.4 mg/dL High 0.0 - 0.5 mg/dL [facility] Interpretation and review of laboratory results Abnormal [facility] Diff and CBCon 10-24-2024 Anisocytosis Ql (Bld) Slight Normal [facility] Comment on above: Performed By: #### D IFF CBC, ESR #### [facility] [address] [place] [address] [place] Basophils/100 WBC (Bld) 2 % Normal 0-2 [facility] Comment on above: Performed By: #### D IFF CBC, ESR #### [address] Erythrocyte distribution width (RBC) [Ratio] 23.9 % High 11.9-15.3 [facility] Comment on above: Performed By: #### D IFF CBC, ESR #### [address] Giant Platelet Tally 1 /100{WBC} Normal [facility] Comment on above: Performed By: #### D IFF CBC, ESR #### [address] Hematocrit (Bld) [Volume fraction] 35.1 % Normal 34.0-46.4 [facility] Comment on above: Performed By: #### D IFF CBC, ESR #### [address] Hemoglobin (Bld) [Mass/Vol] 11.4 g/dL Low 11.8-15.4 [facility] Comment on above: Performed By: #### D IFF CBC, ESR #### [address] Hypochromasia Slight Normal [facility] Comment on above: Performed By: #### D IFF CBC, ESR #### [address] Lymphocytes/100 WBC (Bld) 19 % Normal 18-42 [facility] Comment on above: Performed By: #### D IFF CBC, ESR #### [address] MCH (RBC) [Entitic mass] 26.9 pg Normal 24.7-34.3 [facility] Comment on above: Performed By: #### D IFF CBC, ESR #### [address] MCV (RBC) [Entitic vol] 83.2 fL Normal 80-100 [facility] Comment on above: Performed By: #### D IFF CBC, ESR #### [address] Mean Corpuscular HGB Conc 32.4 g/dL Normal 32.0-35.0 [facility] Comment on above: Performed By: #### D IFF CBC, ESR #### [facility] [address] [place] [address] [place] Monocytes/100 WBC (Bld) 6 % Normal 2-11 [facility] Comment on above: Performed By: #### D IFF CBC, ESR #### [facility] [address] Platelet Estimate Normal Normal Normal [facility] Comment on above: Performed By: #### D IFF CBC, ESR #### [facility] [address] [place] [address] [place] Platelet mean volume (Bld) [Entitic vol] 7.0 fL Normal 6.3-10.7 [facility] Comment on above: Performed By: #### D IFF CBC, ESR #### [facility] [address] Platelet Morphology Normal Normal Normal [facility] Comment on above: Performed By: #### D IFF CBC, ESR #### [facility] [address] [place] [id number] [place] Platelets (Bld) [#/Vol] 403 10*3/uL Normal 150-450 [facility] Comment on above: Performed By: #### D IFF CBC, ESR #### [facility] [address] [place] [address] [place] Polychromasia Moderate Normal [facility] Comment on above: Performed By: #### D IFF CBC, ESR #### [facility] [address] [place] [address] [place] RBC (Bld) [#/Vol] 4.21 10*6/uL Normal 3.60-5.00 [facility] Comment on above: Performed By: #### D IFF CBC, ESR #### [facility] [address] [place] [id number] [facility] RBC morphology finding Nom (Bld) Normal Normal Normal [facility] Comment on above: Performed By: #### D IFF CBC, ESR #### [facility] [address] Segmented neutrophils/100 WBC (Bld) 73 % High 50-70 [facility] Comment on above: Performed By: #### D IFF CBC, ESR #### [facility] [address] WBC (Bld) [#/Vol] 11.0 10*3/uL Normal 3.8-11.6 [facility] Comment on above: Performed By: #### D IFF CBC, ESR #### [facility] [address] Eosinophils Auto (Bld) [#/Vo l]Ordered By: Sakina Cardenas on 10-24-2024 Eosinophils (Bld) [#/Vol] Automated eosinophil count [facility] Eosinophils/100 WBC Auto (Bl d)Ordered By: Sakina Cardenas on 10-24-2024 Eosinophils/100 WBC (Bld) Automated eosinophil % [facility] Erythrocyte Sedimentation Ra aren 10-24-2024 ESR (Bld) [Velocity] 104 mm/h High 0-29 [facility] Comment on above: Result Comment: PERF ORMED BY: [place] [address] PATHOLOGIST PIT SLAGMAN KATHLEEN RAMOS M.D. Performed By: #### D IFF CBC, ESR #### [facility] [address] Erythrocyte distribution wid th Auto (RBC) [Ratio]Ordered By: Sakina Cardenas on 10-24-2024 Erythrocyte distribution width (RBC) [Ratio] Erythrocyte distribution width [Ratio] by Automated count High 11.9-15.3 [facility] Erythrocyte morphology findi ng [Identifier] in BloodOrdered By: Sakina Cardenas on 10-24-2024 RBC morphology finding Nom (Bld) RBC morphology Normal [facility] Erythrocyte sedimentation ra te by Photometric methodOrdered By: Sakina Cardenas on 10-24-2024 ESR Photometric method (Bld) [Velocity] Erythrocyte sedimentation rate by Photometric method High 0-29 [facility] Giant platelets/100 leukocyt es [Ratio] in Blood by Manual countOrdered By: Sakina Cardenas on 10-24-2024 Giant platelets/100 WBC Manual cnt (Bld) [Ratio] Giant platelets/100 leukocytes [Ratio] in Blood by Manual count [facility] Hematocrit Auto (Bld) [Volum e fraction]Ordered By: Sakina Cardenas on 10-24-2024 Hematocrit (Bld) [Volume fraction] Hematocrit [Volume Fraction] of Blood by Automated count 34.0-46.4 [facility] Hemoglobin [Mass/volume] in BloodOrdered By: Sakina Cardenas on 10-24-2024 Hemoglobin (Bld) [Mass/Vol] Hemoglobin [Mass/volume] in Blood Low 11.8-15.4 [facility] Hypochromia LM Ql (Bld)Order ed By: Sakina Cardenas on 10-24-2024 Hypochromia Ql (Bld) Hypochromia [Presen ce] in Blood by Light microscopy [facility] - Hematology and Cell countson 10-24-2024 Erythrocyte distribution width (RBC) [Ratio] 23.9 % High 11.9 - 15.3 % [facility] ESR (Bld) [Velocity] 104 mm/h High 0 - 29 [facility] Hematocrit (Bld) [Volume fraction] 35.1 % 34.0 - 46.4 % [facility] Hemoglobin (Bld) [Mass/Vol] 11.4 g/dL Low [...] erythrocytes in Blood by Automated coun 3.8-11.6 [facility] Lymphocytes Auto (Bld) [#/Vo l]Ordered By: Sakina Cardenas on 10-24-2024 Lymphocytes (Bld) [#/Vol] Lymphocytes [#/volume] in Blood by Automated count [facility] Lymphocytes/100 WBC Auto (Bl d)Ordered By: Sakina Cardenas on 10-24-2024 Lymphocytes/100 WBC (Bld) Lymphocytes/100 leukocytes in Blood by Automated count [facility] Lymphocytes/100 WBC Manual c nt (Bld)Ordered By: Sakina Cardenas on 10-24-2024 Lymphocytes/100 WBC (Bld) Lymphocytes/100 leukocytes in Blood by Manual count 18-42 [facility] MCH Auto (RBC) [Entitic mass ]Ordered By: Sakina Cardenas on 10-24-2024 MCH (RBC) [Entitic mass] MCH [Entitic mass] by Automated count 24.7-34.3 [facility] MCHC Auto (RBC) [Mass/Vol]Or dered By: Sakina Cardenas on 10-24-2024 MCHC (RBC) [Mass/Vol] MCHC [Mass/volume] by Automated count 32.0-35.0 [facility] MCV Auto (RBC) [Entitic vol] Ordered By: Sakina Cardenas on 10-24-2024 MCV (RBC) [Entitic vol] MCV [Entitic volume] by Automated count 80-100 [facility] Monocytes Auto (Bld) [#/Vol] Ordered By: Sakina Cardenas on 10-24-2024 Monocytes (Bld) [#/Vol] Automated blood monocyte count [facility] Monocytes/100 WBC Auto (Bld) Ordered By: Sakina Cardenas on 10-24-2024 Monocytes/100 WBC (Bld) Automated monocyte % [facility] Monocytes/100 WBC Manual cnt (Bld)Ordered By: Sakina Cardenas on 10-24-2024 Monocytes/100 WBC (Bld) Monocytes/100 leukocytes in Blood by Manual count 2-11 [facility] Neutrophils Auto (Bld) [#/Vo l]Ordered By: Sakina Cardenas on 10-24-2024 Neutrophils (Bld) [#/Vol] Neutrophils [#/volume] in Blood by Automated count [facility] Neutrophils/100 WBC Auto (Bl d)Ordered By: Sakina Cardenas on 10-24-2024 Neutrophils/100 WBC (Bld) Automated neutrophil % [facility] No Panel Informationon 10-24 Interpretation and review of laboratory results Abnormal [facility] Nucleated erythrocytes [Pres ence] in Blood by Automated countOrdered By: Sakina Cardenas on 10-24-2024 Nucleated RBC Auto Ql (Bld) Nucleated erythrocytes [Presence] in Blood by Automated count [facility] Platelet adequacy [Presence] in Blood by Light microscopyOrdered By: Sakina Cardenas on 10-24-2024 Platelets LM Ql (Bld) Platelet adequacy [Presence] in Blood by Light microscopy Normal [facility] Platelet mean volume Auto (B ld) [Entitic vol]Ordered By: Sakina Cardenas on 10-24-2024 Platelet mean volume (Bld) [Entitic vol] Platelet mean volume [Entitic volume] in Blood by Automated count 6.3-10.7 [facility] Platelet morphology finding [Identifier] in BloodOrdered By: Sakina Cardenas on 10-24-2024 Platelet morphology finding Nom (Bld) Platelet morphology finding [Identifier] in Blood Normal [facility] Platelets Auto (Bld) [#/Vol] Ordered By: Sakina Cardenas on 10-24-2024 Platelets (Bld) [#/Vol] Platelets [#/volume] in Blood by Automated count 150-450 [facility] Polychromasia [Presence] in Blood by Light microscopyOrdered By: Sakina Cardenas on 10-24-2024 Polychromasia LM Ql (Bld) Polychromasia [Presence] in Blood by Light microscopy [facility] RBC Auto (Bld) [#/Vol]Ordere d By: Sakina Cardenas on 10-24-2024 RBC (Bld) [#/Vol] Erythrocytes [#/volume] in Blood by Automated count 3.60-5.00 [facility] Segmented neutrophils/100 WB C Manual cnt (Bld)Ordered By: Sakina Cardenas on 10-24-2024 Segmented neutrophils/100 WBC (Bld) Manual blood segmented neutrophils/100 leukocytes High 50-70 [facility] WBC Auto (Bld) [#/Vol]Ordere d By: Sakina Cardenas on 10-24-2024 WBC (Bld) [#/Vol] Leukocytes [#/volume ] in Blood by Automated count 3.8-11.6 [facility] MM diagnostic mammo BI w/CAD on 10-16-2024 MM diagnostic mammo BI w/CAD [facility] [place] [address] Ultrasound Report Signed Patient: Breann Starks MR#: [id number] : 1945 Acct:[id number] Age/Sex: 78 / F ADM Date: 10/16/24 Loc: [facility] Room: Type: [facility] Attending Dr: Dmitriy Duque DO Ordering Provider: Dmitriy Duque DO Date of Service: 10/16/24 US/US axilla: R92.8 ([id number]) MM/MM diagnostic mammo BI w/CAD: ENLARGED LT [...] Benton Jr., D.OMeena10/16/2024 2:20 PM Dictation Location: [facility] Tech: Ghazal Barber Transcribed By: STAR 10/16/24 1420 Dictated By: Francisco J Benton Jr, DO 10/16/24 1343 Signed By: 10/16/24 1420 Normal [facility] 36on 10-11-2024 36 Regarding labs [...] BMP in 1 week. 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 She verbalized understanding. Normal [facility] CA ECHO DOPPLER COMPLETEon 0 10-09-2024 [place] [address] Cardiology Report Signed Patient: BREANN STARKS MR#: [id number] : 1945 Acct:[id number] Age/Sex: 78 / F ADM Date: 10/09/24 Loc: CARD Attending Dr: Kolton Altman M.D. Ordering Physician: Kolton Altman M.D. Date of Service: 10/09/24 Procedure(s): CA echo doppler complete Accession Number(s): [id number] cc: RENNY HANSEN ; Kolton Altman M.D. Patient Name: BREANN STARKS MR#: [id number] : 1945 Exam Date: 10/09/2024 Ordering Doctor: [...] Area (VTI): 1.49 cm2, 1.49 cm2 Deceleration [place]: 1.68 m/s2 Pressure Half-Time: 622.32 ms Peak [...] by: Sakina Evans (more content not included)... [facility] Radiology, Radiologist, MD - 10/09/[address] [address] Cardiology Report Signed Patient: BREANN STARKS MR#: [id number] : 1945 Acct:[id number] Age/Sex: 78 / F ADM Date: 10/09/24 Loc: CARD Attending Dr: Kolton Altman M.D. Ordering Physician: Kolton Altman M.D. Date of Service: 10/09/24 Procedure(s): CA echo doppler complete Accession Number(s): [id number] cc: RENNY HANSEN ; Kolton Altman M.D. Patient Name: BREANN STARKS MR#: [id number] : 1945 Exam Date: 10/09/2024 Ordering Doctor: DR. KOLTON ALTMNA M.D. ECHOCARDIOGRAM REPORT PROCEDURE: CA ECHO DOPPLER [...] Area (VTI): 1.49 cm2, 1.49 cm2 Deceleration [place]: 1.68 m/s2 Pressure Half-Time: 622.32 ms Peak [...] SALAZAR Signed By: 10/09/241846 DD/ 44 TD/TT: Gis Developer: [facility] Radiology Study observation (narrative) [facility] CA ECHO DOPPLER COMPLETEOrde red By: Radiologist Radiology on 10-09-2024 [facility] Work Phone: ALL BASIC METABOLIC PANELon 10-03-2024 Anion gap [Moles/Vol] 12.4 mmol/L [facility] Calcium [Mass/Vol] 9.2 mg/dL 8.5 - 10. [...] mmol/L [facility] EGFR-NON AF TANZANIAN >60 >=60 mL/min/1.73m 2 [facility] [...] Anisocytosis [Presence] in Blood by Light microscopy [facility] Anisocytosis [Presence] in B lood by Light microscopyOrdered By: Katharina Toledo on 10-02-2024 Anisocytosis Ql (Bld) Marked Normal [facility] Comment on above: Performed By: #### S CAN CBC, FE and TIBC, ARISTIDES #### [facility] [address] [place] [address] Basophils Auto (Bld) [#/Vol] Ordered By: Katharina Toledo on 10-02-2024 Basophils (Bld) [#/Vol] Automated basophil count 0.0-0.2 [facility] Basophils [#/volume] in Bloo d by Automated countOrdered By: Katharina Toledo on 10-02-2024 Basophils (Bld) [#/Vol] 0.1 10*3/uL Normal 0.0-0.2 [facility] Comment on above: Performed By: #### S CAN CBC, FE and TIBC, ARISTIDES #### [facility] [address] [place] [id number] [place] Basophils/100 WBC Auto (Bld) Ordered By: Katharina Toledo on 10-02-2024 Basophils/100 WBC (Bld) Automated basophil % . [facility] Basophils/100 leukocytes in Blood by Automated countOrdered By: Katharina Toledo on 10-02-2024 Basophils/100 WBC (Bld) 0.8 % Normal . [facility] Comment on above: Performed By: #### S CAN CBC, FE and TIBC, ARISTIDES #### [facility] [address] shoulder LT w conon 10-02 CT shoulder LT w con [facility] Main [place] [address] [place] [address] CT Scan Report Signed Patient: Breann Starks MR#: [id number] 171 : 1945 Acct:[id number] Age/Sex: 78 / F ADM Date: 10/02/24 Loc: Room: Type: [facility] Attending Dr: Katharina Toledo APRN Copies [...] Etienne Rhodes M.D.10/02/2024 4:14 PM Dictation Location: [place] [address] Transcribed By: [facility] 10/02/24 1614 Dictated By: Etienne Rhodes DO 10/02/24 1610 Signed By: 10/02/24 1614 Normal [facility] Creatinine (Bld) [Mass/Vol]O rdered By: Katharina Toledo on 10-02-2024 Creatinine [Mass/Vol] Whole blood creati nine measurement 0.6-1.3 [facility] Comment on above: ER/ESD physician is notified/shown all ISTAT results.Critical values may be confirmed by laboratory testing ifdeemed necessary by ER attending doctor. Eosinophils Auto (Bld) [#/Vo l]Ordered By: Katharina Toledo on 10-02-2024 Eosinophils (Bld) [#/Vol] Automated eosinophil count 0.0-0.45 [facility] Eosinophils [#/volume] in Bl ood by Automated countOrdered By: Katharina Toledo on 10-02-2024 Eosinophils (Bld) [#/Vol] 0.2 10*3/uL Normal 0.0-0.45 [facility] Comment on above: Performed By: #### S CAN CBC, FE and TIBC, ARISTIDES #### [facility] [address] Eosinophils/100 WBC Auto (Bl d)Ordered By: Katharina Toledo on 10-02-2024 Eosinophils/100 WBC (Bld) Automated eosinophil % . [facility] Eosinophils/100 leukocytes i n Blood by Automated countOrdered By: Katharina Toledo on 10-02-2024 Eosinophils/100 WBC (Bld) 2.3 % Normal . [facility] Comment on above: Performed By: #### S CAN CBC, FE and TIBC, ARISTIDES #### [facility] [address] [place] [address] [place] Erythrocyte distribution wid th Auto (RBC) [Ratio]Ordered By: Katharina Toledo on 10-02-2024 Erythrocyte distribution width (RBC) [Ratio] Erythrocyte distribution width [Ratio] by Automated count High 11.9-15.3 [facility] Erythrocyte distribution wid th [Ratio] by Automated countOrdered By: Katharina Toledo on 10-02-2024 Erythrocyte distribution width (RBC) [Ratio] 29.3 % High 11.9-15.3 [facility] Comment on above: Performed By: #### S CAN CBC, FE and TIBC, ARISTIDES #### [facility] [address] Erythrocyte morphology findi ng [Identifier] in BloodOrdered By: Katharina Jaegerbrandy on 10-02-2024 RBC morphology finding Nom (Bld) RBC morphology [facility] RBC morphology finding Nom (Bld) N/A [facility] Erythrocytes [#/volume] in B lood by Automated countOrdered By: Katharina Jaegerbrandy on 10-02-2024 RBC (Bld) [#/Vol] 3.98 10*6/uL Normal 3.60-5.00 [facility] Comment on above: Performed By: #### S CAN CBC, FE and TIBC, ARISTIDES #### [facility] [address] [place] [address] Ferritin [Mass/volume] in Se rum or PlasmaOrdered By: Katharina Jaegerbrandy on 10-02-2024 Ferritin [Mass/Vol] Ferritin [Mass/volum e] in Serum or Plasma 11.0-306.8 [facility] Ferritin [Mass/Vol] 54.8 ng/mL Normal 11.0-306.8 [facility] Comment on above: Result Comment: PERF ORMED BY: [place] [address] PATHOLOGIST PIT SLAGMAN KATHLEEN RAMOS M.D. Performed By: #### S CAN CBC, FE and TIBC, ARISTIDES #### [facility] [address] Hematocrit Auto (Bld) [Volum e fraction]Ordered By: Katharina Jaegerbrandy on 10-02-2024 Hematocrit (Bld) [Volume fraction] Hematocrit [Volume Fraction] of Blood by Automated count Low 34.0-46.4 [facility] Hematocrit [Volume Fraction] of Blood by Automated countOrdered By: Katharina Tre on 10-02-2024 Hematocrit (Bld) [Volume fraction] 33.0 % Low 34.0-46.4 [facility] Comment on above: Performed By: #### S CAN CBC, FE and TIBC, ARISTIDES #### [facility] [address] Hemoglobin [Mass/volume] in BloodOrdered By: Katharina Jaegerbrandy on 10-02-2024 Hemoglobin (Bld) [Mass/Vol] Hemoglobin [Mass/volume] in Blood Low 11.8-15.4 [facility] Hemoglobin (Bld) [Mass/Vol] 10.6 g/dL Low 11.8-15.4 [facility] Comment on above: Performed By: #### S CAN CBC, FE and TIBC, ARISTIDES #### [facility] [address] Hypochromia LM Ql (Bld)Order ed By: Katharina Jaegerbrandy on 10-02-2024 Hypochromia Ql (Bld) Hypochromia [Presen ce] in Blood by Light microscopy [facility] Hypochromia Ql (Bld) Slight [facility] ISTAT XRAY CREon 10-02-2024 Creatinine [Mass/Vol] 0.7 mg/dL 0.6 - 1.3 mg/dL [facility] Comment on above: ER/ESD physician is notified/shown all ISTAT results. Critical values may be confirmed by laboratory testing if deemed necessary by ER attending doctor. ISTAT GFR [facility] ISTAT XRay CREon 10-02-2024 ISTAT GFR >60.0 Normal [facility] Comment on above: Result Comment: PERF ORMED BY: [address] [place] [address] PATHOLOGIST PIT SLAGMAN KATHLEEN RAMOS M.D. Performed By: #### I SCRE #### [facility] [address] [place] [address] Iron [Mass/volume] in Serum or PlasmaOrdered By: Katharina Tre on 10-02-2024 Iron [Mass/Vol] Iron [Mass/volume] i n Serum or Plasma Low 50-212 [facility] Iron [Mass/Vol] 36 ug/dL Low 50-212 [facility] Comment on above: Performed By: #### S CAN CBC, FE and TIBC, ARISTIDES #### [facility] [address] Iron and TIBC Profileon 09-13 % Iron Saturation 8.7 % Low 20-50 [facility] Comment on above: Performed By: #### S CAN CBC, FE and TIBC, ARISTIDES #### [facility] [address] Total Iron Binding Capacity 413 ug/dL Normal 255-450 [facility] Comment on above: Performed By: #### S CAN CBC, FE and TIBC, ARISTIDES #### [facility] [address] Leukocytes [#/volume] correc aristeo for nucleated erythrocytes in Blood by Automated counOrdered By: Katharina Toledo on 10-02-2024 WBC corrected for nucl RBC Auto (Bld) [#/Vol] Leukocytes [#/volume] corrected for nucleated erythrocytes in Blood by Automated coun 3.8-11.6 [facility] WBC corrected for nucl RBC Auto (Bld) [#/Vol] 8.7 10*3/uL 3.8-11.6 [facility] Leukocytes [#/volume] in Blo od by Automated countOrdered By: Katharina Toledo on 10-02-2024 WBC (Bld) [#/Vol] 8.7 10*3/uL Normal 3.8-11.6 [facility] Comment on above: Performed By: #### S CAN CBC, FE and TIBC, ARISTIDES #### [facility] [address] Lymphocytes Auto (Bld) [#/Vo l]Ordered By: Katharina Toledo on 10-02-2024 Lymphocytes (Bld) [#/Vol] Lymphocytes [#/volume] in Blood by Automated count 1.00-4.8 [facility] Lymphocytes [#/volume] in Bl ood by Automated countOrdered By: Katharina Toledo on 10-02-2024 Lymphocytes (Bld) [#/Vol] 1.4 10*3/uL Normal 1.00-4.8 [facility] Comment on above: Performed By: #### S CAN CBC, FE and TIBC, ARISTIDES #### [facility] [address] [place] [address] Lymphocytes/100 WBC Auto (Bl d)Ordered By: Katharina Toledo on 10-02-2024 Lymphocytes/100 WBC (Bld) Lymphocytes/100 leukocytes in Blood by Automated count . [facility] Lymphocytes/100 leukocytes i n Blood by Automated countOrdered By: Katharina Toledo on 10-02-2024 Lymphocytes/100 WBC (Bld) 15.8 % Normal . [facility] Comment on above: Performed By: #### S CAN CBC, FE and TIBC, ARISTIDES #### [address] MCH Auto (RBC) [Entitic mass ]Ordered By: Katharina Toledo on 10-02-2024 MCH (RBC) [Entitic mass] MCH [Entitic mass] by Automated count 24.7-34.3 [facility] MCH [Entitic mass] by Automa aristeo countOrdered By: Katharina Toledo on 10-02-2024 MCH (RBC) [Entitic mass] 26.6 pg Normal 24.7-34.3 [facility] Comment on above: Performed By: #### S CAN CBC, FE and TIBC, ARISTIDES #### [address] MCHC Auto (RBC) [Mass/Vol]Or dered By: Katharina Toledo on 10-02-2024 MCHC (RBC) [Mass/Vol] MCHC [Mass/volume] by Automated count 32.0-35.0 [facility] MCHC (RBC) [Mass/Vol] 32.0 g/dL 32.0-35.0 [facility] MCV Auto (RBC) [Entitic vol] Ordered By: Katharina Toledo on 10-02-2024 MCV (RBC) [Entitic vol] MCV [Entitic volume] by Automated count 80-100 [facility] MCV [Entitic volume] by Auto mated countOrdered By: Katharina Toledo on 10-02-2024 MCV (RBC) [Entitic vol] 83.1 fL Normal 80-100 [facility] Comment on above: Performed By: #### S CAN CBC, FE and TIBC, ARISTIDES #### [facility] [address] [place] [address] [place] Microcytes LM Ql (Bld)Ordere d By: Katharina Tre on 10-02-2024 Microcytes Ql (Bld) Microcytes [Presence ] in Blood by Light microscopy [facility] Microcytes Ql (Bld) Slight [facility] Monocytes Auto (Bld) [#/Vol] Ordered By: Katharina Tre on 10-02-2024 Monocytes (Bld) [#/Vol] Automated blood monocyte count 0.0-0.8 [facility] Monocytes [#/volume] in Bloo d by Automated countOrdered By: Katharina Toledo on 10-02-2024 Monocytes (Bld) [#/Vol] 0.6 10*3/uL Normal 0.0-0.8 [facility] Comment on above: Performed By: #### S CAN CBC, FE and TIBC, ARISTIDES #### [facility] [address] [place] [address] [place] Monocytes/100 WBC Auto (Bld) Ordered By: Katharina Tre on 10-02-2024 Monocytes/100 WBC (Bld) Automated monocyte % . [facility] Monocytes/100 leukocytes in Blood by Automated countOrdered By: Katharina Toledo on 10-02-2024 Monocytes/100 WBC (Bld) 7.3 % Normal . [facility] Comment on above: Performed By: #### S CAN CBC, FE and TIBC, ARISTIDES #### [facility] [address] [place] [address] [place] Neutrophils Auto (Bld) [#/Vo l]Ordered By: Katharina Toledo on 10-02-2024 Neutrophils (Bld) [#/Vol] Neutrophils [#/volume] in Blood by Automated count 1.8-7.7 [facility] Neutrophils [#/volume] in Bl ood by Automated countOrdered By: Katharina Toledo on 10-02-2024 Neutrophils (Bld) [#/Vol] 6.4 10*3/uL Normal 1.8-7.7 [facility] Comment on above: Performed By: #### S CAN CBC, FE and TIBC, ARISTIDES #### [facility] [address] Neutrophils/100 WBC Auto (Bl d)Ordered By: Katharina Toledo on 10-02-2024 Neutrophils/100 WBC (Bld) Automated neutrophil % . [facility] Neutrophils/100 leukocytes i n Blood by Automated countOrdered By: Katharina Toledo on 10-02-2024 Neutrophils/100 WBC (Bld) 73.8 % Normal . [facility] Comment on above: Performed By: #### S CAN CBC, FE and TIBC, ARISTIDES #### [facility] [address] No Panel InformationOrdered By: Katharina Toledo on 10-02-2024 Bedside Estimated GFR (eGFR) > 60.0 [facility] Nucleated erythrocytes [Pres ence] in Blood by Automated countOrdered By: Katharina Toledo on 10-02-2024 Nucleated RBC Auto Ql (Bld) Nucleated erythrocytes [Presence] in Blood by Automated count 0-0.5 [facility] Nucleated RBC Auto Ql (Bld) 0.0 /100{WBC} 0-0.5 [facility] Platelet adequacy [Presence] in Blood by Light microscopyOrdered By: Katharina Toledo on 10-02-2024 Platelets LM Ql (Bld) Platelet adequacy [Presence] in Blood by Light microscopy Normal [facility] Platelets LM Ql (Bld) Normal Normal [facility] Platelet mean volume Auto (B ld) [Entitic vol]Ordered By: Katharina Toledo on 10-02-2024 Platelet mean volume (Bld) [Entitic vol] Platelet mean volume [Entitic volume] in Blood by Automated count 6.3-10.7 [facility] Platelet mean volume [Entiti c volume] in Blood by Automated countOrdered By: Katharina Toledo on 10-02-2024 Platelet mean volume (Bld) [Entitic vol] 6.9 fL Normal 6.3-10.7 [facility] Comment on above: Performed By: #### S CAN CBC, FE and TIBC, ARISTIDES #### [address] Platelet morphology finding [Identifier] in BloodOrdered By: Katharina Jaegercaesarsebas on 10-02-2024 Platelet morphology finding Nom (Bld) Platelet morphology finding [Identifier] in Blood Normal [facility] Platelet morphology finding Nom (Bld) Normal Normal [facility] Platelets Auto (Bld) [#/Vol] Ordered By: Katharina Tre on 10-02-2024 Platelets (Bld) [#/Vol] Platelets [#/volume] in Blood by Automated count 150-450 [facility] Platelets [#/volume] in Bloo d by Automated countOrdered By: Katharina Tre on 10-02-2024 Platelets (Bld) [#/Vol] 337 10*3/uL Normal 150-450 [facility] Comment on above: Performed By: #### S CAN CBC, FE and TIBC, ARISTIDES #### [place] [address] [place] Polychromasia [Presence] in Blood by Light microscopyOrdered By: Katharina Jaegerbrandy on 10-02-2024 Polychromasia LM Ql (Bld) Polychromasia [Presence] in Blood by Light microscopy [facility] Polychromasia LM Ql (Bld) Slight [facility] RBC Auto (Bld) [#/Vol]Ordere d By: Katharina Tre on 10-02-2024 RBC (Bld) [#/Vol] Erythrocytes [#/volume] in Blood by Automated count 3.60-5.00 [facility] Scan and CBCon 10-02-2024 Hypochromasia Slight Normal [facility] Comment on above: Performed By: #### S CAN CBC, FE and TIBC, ARISTIDES #### [address] Mean Corpuscular HGB Conc 32.0 g/dL Normal 32.0-35.0 [facility] Comment on above: Performed By: #### S CAN CBC, FE and TIBC, ARISTIDES #### [place] [address] [place] Microcytosis Slight Normal [facility] Comment on above: Performed By: #### S CAN CBC, FE and TIBC, ARISTIDES #### [facility] [address] NRBC% 0.0 /100{WBC} Normal 0-0.5 [facility] Comment on above: Performed By: #### S CAN CBC, FE and TIBC, ARISTIDES #### [facility] [address] Platelet Estimate Normal Normal Normal [facility] Comment on above: Performed By: #### S CAN CBC, FE and TIBC, ARISTIDES #### [facility] [address] Platelet Morphology Normal Normal Normal [facility] Comment on above: Result Comment: PERF ORMED BY: [place] [address] PATHOLOGIST PIT SLAGMAN KATHLEEN RAMOS M.D. Performed By: #### S CAN CBC, FE and TIBC, ARISTIDES #### [facility] [address] Polychromasia Slight Normal [facility] Comment on above: Performed By: #### S CAN CBC, FE and TIBC, ARISTIDES #### [facility] [address] Serum or plasma iron binding capacity measurement (mass/volume)Ordered By: Katharina Toledo on 10-02-2024 Iron binding capacity [Mass/Vol] Iron binding capacity [Mass/volume] in Serum or Plasma 255-450 [facility] Iron binding capacity [Mass/Vol] 413 ug/dL 255-450 [facility] Serum or plasma iron saturat ion measurement (mass fraction)Ordered By: Katharina Toledo on 10-02-2024 Iron saturation [Mass fraction] Iron saturation [Mass Fraction] in Serum or Plasma Low 20-50 [facility] Iron saturation [Mass fraction] 8.7 % Low 20-50 [facility] Transferrin [Mass/volume] in Serum or PlasmaOrdered By: Katharina Toledo on 10-02-2024 Transferrin [Mass/Vol] Transferrin [Mass/volume] in Serum or Plasma -362 [facility] Transferrin [Mass/Vol] 295 mg/dL Normal -362 [facility] Comment on above: Performed By: #### S CAN CBC, FE and TIBC, ARISTIDES #### [facility] [address] [place] [id number] [facility] WBC Auto (Bld) [#/Vol]Ordere d By: Katharina Tre on 10-02-2024 WBC (Bld) [#/Vol] Leukocytes [#/volume ] in Blood by Automated count 3.8-11.6 [facility] Whole blood creatinine measu rementOrdered By: Katharina Tre on 10-02-2024 Creatinine [Mass/Vol] 0.7 mg/dL Normal 0.6-1.3 [facility] Comment on above: ER/ESD physician is notified/shown all ISTAT results.Critical values may be confirmed by laboratory testing ifdeemed necessary by ER attending doctor. Result Comment: ER/E SD physician is notified/shown all ISTAT results. Critical values may be confirmed by laboratory testing if deemed necessary by ER attending doctor. Performed By: #### I SCRE #### [facility] [address] Office Visiton 09-24-2024 Follow-up visit [id number] Oliver Starks Jonah 1945 F Date Provider Department Center 09/24/2024 [id number] AMISH Ramírez [facility] Family History Adopted: Yes Family history unknown: Yes Family Status - Relation Status Age at Mother Father Level of Service:95381 [place] OFFICE/OUTPATIENT ESTABLISHED MOD MDM 30 MIN Reason for Visit and Comments: Atrial Fibrillation [80] - Denies palpitations, lightheadedness/syncop e, and bleeding on Eliquis. Congestive Heart Failure [127] severe pulmonary hypertension [Other] - Denies chest pain and SOB. Edema [[id number]] - NOT taking lasix currently due to no LE edema. Normal [facility] Urinalysis macro (dipstick) panel (U)on 09-19-2024 Bilirubin, UA Negative Negative - 4(70) +++ mg/dL [facility] Blood, UA Positive Negative - 50 Shadi/mcL [facility] Clarity, UA Cloudy [facility] Color, UA Dark Sara [facility] Glucose, UA Negative Negative - 1999(110) [...] 0.2 0.2 - 12 mg/dL [facility] C reactive protein [Mass/vol ume] in Serum or PlasmaOrdered By: Pedro Pablo Cruz on 08-24-2024 CRP [Mass/Vol] C reactive protein [Mass/volume] in Serum or Plasma High 0.0-0.5 [facility] C-Reactive Proteinon 024 C-Reactive Protein 1.1 mg/dL High 0.0-0.5 [facility] Comment on above: Result Comment: PERF ORMED BY: [facility] [address] [place] [address] PATHOLOGIST PIT SLAGMAN KATHLEEN RAMOS M.D. Performed By: #### C ####[facility] [place] [id number] [facility] CBC W Auto Differential pane l [...] 10*3/uL 3.8 - 11.6 10*3/uL [facility] Complete Blood Count Auto Di ffon 12-13-2024 Basophils (Bld) [#/Vol] 0.1 10*3/uL Normal 0.0-0.2 [facility] Comment on above: Result Comment: PERF ORMED BY: [facility] [place] [address] PATHOLOGIST PIT SLAGMAN KATHLEEN RAMOS M.D. Performed By: #### F ER, [id number], CBC, FE and TIBC ####[address] Basophils/100 WBC (Bld) 0.9 % Normal . [facility] Comment on above: Performed By: #### F ER, [id number], CBC, FE and TIBC ####[address] Eosinophils (Bld) [#/Vol] 0.2 10*3/uL Normal 0.0-0.45 [facility] Comment on above: Performed By: #### F ER, [id number], CBC, FE and TIBC ####[address] Eosinophils/100 WBC (Bld) 2.6 % Normal . [facility] Comment on above: Performed By: #### F ER, [id number], CBC, FE and TIBC ####[address] Erythrocyte distribution width (RBC) [Ratio] 19.3 % High 11.9-15.3 [facility] Comment on above: Performed By: #### F ER, [id number], CBC, FE and TIBC ####[address] Hematocrit (Bld) [Volume fraction] 28.2 % Low 34.0-46.4 [facility] Comment on above: Performed By: #### F ER, [id number], CBC, FE and TIBC ####[address] Hemoglobin (Bld) [Mass/Vol] 8.6 g/dL Low 11.8-15.4 [facility] Comment on above: Performed By: #### F ER, [id number], CBC, FE and TIBC ####[address] Lymphocytes (Bld) [#/Vol] 2.1 10*3/uL Normal 1.00-4.8 [facility] Comment on above: Performed By: #### F ER, [id number], CBC, FE and TIBC ####[address] Lymphocytes/100 WBC (Bld) 23.5 % Normal . [facility] Comment on above: Performed By: #### F ER, [id number], CBC, FE and TIBC ####[address] MCH (RBC) [Entitic mass] 21.8 pg Low 24.7-34.3 [facility] Comment on above: Performed By: #### F ER, [id number], CBC, FE and TIBC ####[address] MCV (RBC) [Entitic vol] 71.9 fL Low 80-100 [facility] Comment on above: Performed By: #### F ER, [id number], CBC, FE and TIBC ####[address] Mean Corpuscular HGB Conc 30.4 g/dL Low 32.0-35.0 [facility] Comment on above: Performed By: #### F ER, [id number], CBC, FE and TIBC ####[address] Monocytes (Bld) [#/Vol] 0.6 10*3/uL Normal 0.0-0.8 [facility] Comment on above: Performed By: #### F ER, [id number], CBC, FE and TIBC ####[address] Monocytes/100 WBC (Bld) 6.8 % Normal . [facility] Comment on above: Performed By: #### F ER, [id number], CBC, FE and TIBC ####[address] Neutrophils (Bld) [#/Vol] 5.9 10*3/uL Normal 1.8-7.7 [facility] Comment on above: Performed By: #### F ER, [id number], CBC, FE and TIBC ####[address] Neutrophils/100 WBC (Bld) 66.2 % Normal . [facility] Comment on above: Performed By: #### F ER, [id number], CBC, FE and TIBC ####[address] NRBC% 0.0 /100{WBC} Normal 0-0.5 [facility] Comment on above: Performed By: #### F ER, [id number], CBC, FE and TIBC ####[address] Platelet mean volume (Bld) [Entitic vol] 6.9 fL Normal 6.3-10.7 [facility] Comment on above: Performed By: #### F ER, [id number], CBC, FE and TIBC ####[address] Platelets (Bld) [#/Vol] 345 10*3/uL Normal 150-450 [facility] Comment on above: Performed By: #### F ER, [id number], CBC, FE and TIBC ####[address] RBC (Bld) [#/Vol] 3.93 10*6/uL Normal 3.60-5.00 [facility] Comment on above: Performed By: #### F ER, [id number], CBC, FE and TIBC ####[facility] [place] [id number] [facility] WBC (Bld) [#/Vol] 8.9 10*3/uL Normal 3.8-11.6 [facility] Comment on above: Performed By: #### F ER, [id number], CBC, FE and TIBC ####[place] [id number] [place] [id number] [facility] Erythrocyte Sedimentation Ra aren 08-24-2024 ESR (Bld) [Velocity] 103 mm/h High 0-29 [facility] Comment on above: Result Comment: PERF ORMED BY: [facility] [address] [place] [id number] PATHOLOGIST PIT SLAGMAN KATHLEEN RAMOS M.D. Performed By: #### E SR ####[place] [id number] [place] [id number] [facility] Erythrocyte sedimentation ra te by Photometric methodOrdered By: Pedro Pablo Cruz on 08-24-2024 ESR Photometric method (Bld) [Velocity] Erythrocyte sedimentation rate by Photometric method High 0-29 [facility] Ferritinon 08-24-2024 Ferritin [Mass/Vol] 8.6 ng/mL Low 11.0-306.8 [facility] Comment on above: Performed By: #### F ER, [id number], CBC, FE and TIBC ####[place] [id number] [facility] Folate [Mass/volume] in Seru m or PlasmaOrdered By: Katharina Toledo on 08-24-2024 Folate [Mass/Vol] Folate [Mass/volume] in Serum or Plasma >5.9 [facility] Comment on above: Folate reference ran ge: >5.9 ng/mlThe WHO technical consultation on folate and vitamin [id number] has determined that folate concentrations lessthan 4 ng/ml are considered deficient. Folate [Mass/Vol] 28.0 ng/mL >5.9 [facility] Comment on above: Folate reference ran ge: >5.9 ng/mlThe WHO technical consultation on folate and vitamin [id number] has determined that folate concentrations lessthan 4 ng/ml are considered deficient. Iron and TIBC Profileon 08-12 % Iron Saturation 3.2 % Low 20-50 [facility] Comment on above: Performed By: #### F ER, [id number], CBC, FE and TIBC ####[address] [place] [address] [facility] Iron [Mass/Vol] 14 ug/dL Low 50-212 [facility] Comment on above: Performed By: #### F ER, [id number], CBC, FE and TIBC ####[address] [place] [address] [facility] Total Iron Binding Capacity 437 ug/dL Normal 255-450 [facility] Comment on above: Performed By: #### F ER, [id number], CBC, FE and TIBC ####[address] [place] [address] [facility] Transferrin [Mass/Vol] 312 mg/dL Normal 203-362 [facility] Comment on above: Performed By: #### F ER, [id number], CBC, FE and TIBC ####[address] [place] [address] [facility] Vit. B12/Folate Profileon Folate 28.0 ng/mL Normal >5.9 [facility] Comment on above: Result Comment: Nayely te reference range: >5.9 ng/ml The WHO technical consultation on folate and vitamin b12 deficiencies has determined that folate concentrations less than 4 ng/ml are considered deficient. PERFORMED BY: [facility] [address] [place] [id number] PATHOLOGIST PIT SLAGMAN KATHLEEN RAMOS M.D. Performed By: #### F ER, [id number], CBC, FE and TIBC ####[address] [place] [address] [facility] Vitamin B12 ser/plasOrdered By: Katharina Toledo on 08-24-2024 Cobalamin (Vitamin B12) [Mass/Vol] Vitamin B12 ser/plas 180-914 [facility] Cobalamin (Vitamin B12) [Mass/Vol] 417 pg/mL Normal 180-914 [facility] Comment on above: Performed By: #### F ER, [id number], CBC, FE and TIBC ####[facility] [address] [place] [address] [facility] TRANSFERRINon 07-25-2024 Transferrin [Mass/Vol] 284 mg/dL 192 - 364 mg/dL [facility] Comment on above: Performed at: [address] [id number] Pen And Pencil Repairer: Baudilio Givens PhD, Phone: [phone] [facility] ALL CBC WITH AUTO DIFFon [...] 9.5 - 13.5 fL [facility] TB EO # 0.1 [facility] TB PLT 328 [facility] RBC 3.9 Low [facility] WBC 10 [facility] METRO IRON AND TIBCon 2023 Interpretation and review of laboratory results Abnormal [facility] IRON 17 ug/dL Low 50.0 - 170.0 ug/dL [facility] TB PERCENT IRON SATURATION 4.5 % [facility] TOTAL IRON BINDING CAPACITY 381 ug/dL 250.0 - 450.0 ug/dL [facility] Healthcare Office Visiton 07-18-2024 Follow-up visit [id number] Oliver Starks 1945 F Date Provider Department Center 07/18/2024 [id number] AMISH Lubin Family History Adopted: Yes Family history unknown: Yes Family Status - Relation Status Age at Mother Father Level of Service:89059 [place] OFFICE/OUTPATIENT ESTABLISHED MOD MDM 30 MIN Reason for Visit and Comments: Atrial Fibrillation [80] PACEMAKER [Other] Coronary Artery Disease [187] Hypertension [416220] Sinus node dysfunction [Other] - HAS BOSTON PACER Obesity [[id number]] Edema [[id number]] Normal [facility] CNOVon 05-22-2024 CNOV Office Visit (LOORRM ) BREANN STARKS ([id number]) 1945 F Date Time Provider Department 05/22/24 [...] She was recommended for second opinion at [facility]. 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 Normal [facility] XR SHLDR 4V AP/HECTOR/LAT/OUTLE T [...] other significant abnormality. IMPRESSION: EXPECTED POSTOPERATIVE APPEARANCE Gis Developer: PSCB Transcribe Date/Time: May 22 2024 2:42P Dictated by : VILMA ABREU MD This examination was interpreted and the report reviewed and electronically signed by: VILMA ABREU MD on May 22 2024 2:42PM EST [id number] Normal [facility] XR Shoulder - left 4 Viewson 05-22-2024 IMPRESSION: EXPECTED POSTOPERATIVE APPEARANCE Gis Developer: PSCB Transcribe Date/Time: May 22 2024 2:42P Dictated by : VILMA ABREU MD This examination was interpreted and the report reviewed and electronically signed by: VILMA ABREU MD on May 22 2024 2:42PM [facility] DIVISION OF RADIOLOGY * * *Final Report* [...] significant abnormality. IMPRESSION IMPRESSION: EXPECTED POSTOPERATIVE APPEARANCE Gis Developer: STEVE Transcribe Date/Time: May 22 2024 2:42P Dictated by : VILMA ABREU MD This examination was interpreted and the report reviewed and electronically signed by: VILMA ABREU MD on May 22 2024 2:42PM EST [facility] Radiology Study observation (narrative) [facility] XR Shoulder - left 4 ViewsOr dered By: Ccf Provider on 05-22-2024 [facility] ALL CBC WITH AUTO DIFFon BASOPHILS ABSOLUTE AUTO 0.0 [facility] Healthcare Basophils/100 WBC (Bld) 0.6 % 0.2 - 2.0 % [facility] Healthcare Eosinophils/100 WBC (Bld) 1.0 % 0.9 - 7.0 % [facility] Erythrocyte distribution width (RBC) [Ratio] 19.6 % High 11.0 - 15.0 % [facility] Hematocrit (Bld) [Volume fraction] 32.9 % Low 36.0 - 48.0 % [facility] Hemoglobin (Bld) [Mass/Vol] 9.7 g/dL Low 12.0 - 16.0 g/dL [facility] IMMATURE GRANULOCYTES ABS AUTO 0.02 [facility] Healthcare Immature granulocytes/100 WBC (Bld) 0.3 % 0.0 - 0.5 % [facility] Interpretation and review of laboratory results Abnormal [facility] LYMPHOCYTES ABSOLUTE AUTO 1.4 [facility] Lymphocytes/100 WBC (Bld) 20.4 % Low [...] # 0.1 [facility] TBH PLT 278 [facility] RBC 4.25 [facility] WBC 7.0 [facility] Lab Reportson 03-07-2024 Lab Reports [id number]#1.0 0TIFF Normal [facility] Consent for Procedure/Surger yon 03-05-2024 Consent for Procedure/Surgery [id number]#1.0 0TIFF [facility] Ambulatory Visit Summaryon 0 03-02-2024 Ambulatory [...] for choosing us for your care. Normal [facility] ED Note-Physicianon 03-02-20 ED Note-Physician [id number]#[id number] TIFF [facility] Insurance Correspondenceon 0 03-02-2024 Insurance Correspondence [id number]#1. 00TIFF [facility] Lab Reportson 03-02-2024 Lab Reports [id number]#1.0 0TIFF [facility] DXA Skeletal system Views fo r bone densityon 12-12-2023 Interpretation and review of laboratory results Normal [facility] normal [facility] Radiology Study observation (narrative) [facility] [...] by: PAULA BROWN Date: 2023-01-31 11:34 Normal [facility] LIPID PROFILEon 12-16-2022 CHOL-HDL RATIO NORM SEE BELOW Normal [facility] Comment on above: Result Comment: 3.3 - 4.4 LOW RISK 4.4 - 7.1 AVERAGE RISK 7.1 - 11.0 MODERATE RISK >11.0 HIGH RISK Performed By: #### L IPID ####[facility] [address] [place], [place] [address]Gv. Erasmo Smith Cholesterol [Mass/Vol] 105 mg/dL Normal <=200 [facility] Comment on above: Performed By: #### L IPID ####[facility] [address] [place], [place] [address]Nv. Erasmo Smiht Cholesterol in HDL [Mass/Vol] 48 mg/dL Normal 40-60 [facility] Comment on above: Performed By: #### L IPID ####[facility] [address] [place], [place] [address]Xm. Erasmo Smith Cholesterol in LDL [Mass/Vol] 48.2 mg/dL Normal [facility] Comment on above: Performed By: #### L IPID ####[facility] [address] [place], [place] [address]Ra. Erasmo Smith Cholesterol.total/Cho lesterol in HDL [Mass ratio] 2.2 {ratio} Normal [facility] Comment on above: Performed By: #### L IPID ####[facility] [address] [place], [place] [address]Hl. Erasmo Smith HDL NORMAL > or = 60 mg/dl - LO W CARDIOVASCULAR RISK <40 mg/dl - HIGH CARDIOVASCULAR RISK Normal [facility] Comment on above: Performed By: #### L IPID ####[facility] [address] [place], [place] [address]Sk. Erasmo Smith LDL CALC NORMAL SEE BELOW Normal [facility] Comment on above: Result Comment: <100 mg/dl OPTIMAL 100 - 129 mg/dl NEAR OR ABOVE OPTIMAL 130 - 159 mg/dl BORDERLINE HIGH 160 - 189 mg/dl HIGH >190 mg/dl VERY HIGH Performed By: #### L IPID ####[facility] [address] [place] [id number] Smith Triglyceride [Mass/Vol] 44 mg/dL Normal <=150 [facility] Comment on above: Performed By: #### L IPID ####[facility] [address] [place] [address]Dr. Erasmo Smith VLDL CALC 8.8 mg/dL Normal [facility] Comment on above: Performed By: #### L IPID ####[facility] [address] [place] [address]DrMeena Smith CULTURE BLOODon 12-04-2022 Microscopic examination of [...] Trimethoprim/Sulfameth oxazole <=20 S F Normal [facility] Comment on above: Performed By: #### B LDCX1 ####[facility] [address] [place] [address]Dr. Erasmo Smith BNPon 12-03-2022 Natriuretic peptide B (Bld) [Mass/Vol] 413.0 pg/mL Normal <=1,800.0 [facility] Comment on above: Performed By: #### B WATERMELON HARVESTING SUPERVISOR #### [facility] [address] [address] [address] Erasmo Smith CBC AUTO DIFFon 12-03-2022 BASO # 0.0 103/ul Normal 0.0-0.1 [facility] Comment on above: Performed By: #### C BC ####[facility] [address] [place] [address]Dr. Erasmo Smith Basophils/100 WBC (Bld) 0.2 % Normal 0.2-2.0 [facility] Comment on above: Performed By: #### C BC ####[facility] [address] [place], [place] [address]Dr. Erasmo Luis EO # 0.4 103/ul Normal 0.0-0.7 [facility] Comment on above: Performed By: #### C BC ####[facility] [address] [place], [place] [address]Dr. Heavenean Luis Eosinophils/100 WBC (Bld) 2.1 % Normal 0.9-7.0 [facility] Comment on above: Performed By: #### C BC ####[facility] [address] [place], [place] [address]Dr. Erasmo Luis Erythrocyte distribution width (RBC) [Ratio] 17.2 % Critically high 11.0-15.0 [facility] Comment on above: Performed By: #### C BC ####[facility] [address] [place], [place] [address]Dr. Heavenean Smith Hematocrit (Bld) [Volume fraction] 29.2 % Critically low 36.0-48.0 [facility] Comment on above: Performed By: #### C BC ####[facility] [address] [place], [place] [address]Dr. Heavenean Smith Hemoglobin (Bld) [Mass/Vol] 9.5 g/dL Critically low 12.0-16.0 The [facility] Comment on above: Performed By: #### C BC ####[facility] [address] [place], [place] [address]Dr. Erasmo Smith IG # 0.13 10e3/ul Critically high 0.00-0.03 [facility] Comment on above: Performed By: #### C BC ####[facility] [address] [place], [place] [address]Dr. Erasmo Smith IG % 0.8 % Critically high 0.0-0.5 [facility] Comment on above: Performed By: #### C BC ####[facility] [address] [place] [address]Dr. Heavenean Luis LYMPH # 1.8 103/ul Normal 1.2-3.8 [facility] Comment on above: Performed By: #### C BC ####[facility] [address] [place] [address]Dr. Heavenean Smith Lymphocytes/100 WBC (Bld) 10.3 % Critically low 20.5-60.0 [facility] Comment on above: Performed By: #### C BC ####[facility] [address] [place] [address]Dr. Erasmo Smith MANUAL DIFF REQ NO Normal [facility] Comment on above: Performed By: #### C BC ####[facility] [address] [place] [address]Dr. Erasmo Luis MCH (RBC) [Entitic mass] 25.7 pg Critically low 26.7-34.0 [facility] Comment on above: Performed By: #### C BC ####[facility] [address] [place] [address]Dr. Erasmo Smith MCHC (RBC) [Mass/Vol] 32.5 g/dL Normal 29.9-35.2 [facility] Comment on above: Performed By: #### C BC ####[facility] [address] [place] [address]Dr. Erasmo Smith MCV (RBC) [Entitic vol] 79.1 fL Critically low 81.0-99.0 [facility] Comment on above: Performed By: #### C BC ####[facility] [address] [place] [address]DrMeena Smith MONO # 1.5 103/ul Critically high 0.3-0.8 [facility] Comment on above: Performed By: #### C BC ####[facility] [address] [place] [address]Dr. Erasmo Smith Monocytes/100 WBC (Bld) 8.7 % Normal 1.7-12.0 [facility] Comment on above: Performed By: #### C BC ####[facility] [address] [place] [address]Dr. Erasmo Smith NEUT # 13.4 103/ul Critically high 1.4-6.5 The [facility] Comment on above: Performed By: #### C BC ####[facility] [address] [place] [address]Dr. Erasmo Smith Neutrophils/100 WBC (Bld) 77.9 % Critically high 43.0-75.0 [facility] Comment on above: Performed By: #### C BC ####[facility] [address] [place] [address]Dr. Erasmo Smith Platelet mean volume (Bld) [Entitic vol] 9.3 fL Critically low 9.5-13.5 [facility] Comment on above: Performed By: #### C BC ####[facility] [address] [place] [address]Dr. Erasmo Smith PLT 205 103/ul Normal 150-450 [facility] Comment on above: Performed By: #### C BC ####[facility] [address] [place] [address]Dr. Erasmo Smith RBC 3.69 106/ul Critically low 4.20-5.40 [facility] Comment on above: Performed By: #### C BC ####[facility] [address] [place] [address]Dr. Erasmo Smith WBC 17.2 103/ul Critically high 4.0-11.0 The [facility] Comment on above: Performed By: #### C BC ####[facility] [address] [place] [address]Dr. Erasmo Smith MAGNESIUMon 12-03-2022 Magnesium [Mass/Vol] 1.9 mg/dL Normal 1.8-2.4 [facility] Comment on above: Performed By: #### B WATERMELON HARVESTING SUPERVISOR #### [facility] [address] [place] [address] Dr. Erasmo Smith PROF 14(COMP METB)on 023 Albumin [Mass/Vol] 2.6 g/dL Critically low 3.4-5.0 [facility] Comment on above: Performed By: #### B WATERMELON HARVESTING SUPERVISOR #### [facility] [address] [place] [address] Dr. Erasmo Smith Albumin/Globulin [Mass ratio] 0.6 {ratio} Normal [facility] Comment on above: Performed By: #### B WATERMELON HARVESTING SUPERVISOR #### [facility] [address] [place] [address] Dr. Erasmo Smith ALP [Catalytic activity/Vol] 123 U/L Critically high 46-116 [facility] Comment on above: Performed By: #### B WATERMELON HARVESTING SUPERVISOR #### [facility] [address] [place] [address] Dr. Erasmo Smith ALT [Catalytic activity/Vol] 28 U/L Normal 14-59 [facility] Comment on above: Performed By: #### B WATERMELON HARVESTING SUPERVISOR #### [facility] [address] [place] [address] Dr. Erasmo Smith Anion gap [Moles/Vol] 9.4 mmol/L Normal [facility] Comment on above: Performed By: #### B WATERMELON HARVESTING SUPERVISOR #### [facility] [address] [place] [address] Dr. Erasmo Smith AST [Catalytic activity/Vol] 21 U/L Normal 15-37 [facility] Comment on above: Performed By: #### B WATERMELON HARVESTING SUPERVISOR #### [facility] [address] [place] [address] Dr. Erasmo Smith Bilirubin [Mass/Vol] 0.3 mg/dL Normal 0.2-1.0 [facility] Comment on above: Performed By: #### B WATERMELON HARVESTING SUPERVISOR #### [facility] [address] [place] [address] Dr. Erasmo Smith Calcium [Mass/Vol] 8.3 mg/dL Critically low 8.5-10.1 [facility] Comment on above: Performed By: #### B WATERMELON HARVESTING SUPERVISOR #### [facility] [address] [place] [address] Dr. Erasmo Smith Chloride [Moles/Vol] 105 mmol/L Normal 98-107 [facility] Comment on above: Performed By: #### B WATERMELON HARVESTING SUPERVISOR #### [facility] [address] [place] [address] Dr. Erasmo Smith CO2 [Moles/Vol] 27.1 mmol/L Normal 21.0-32.0 The [facility] Comment on above: Performed By: #### B WATERMELON HARVESTING SUPERVISOR #### [facility] [address] [place] [address] Dr. Erasmo Smith Creatinine [Mass/Vol] 0.55 mg/dL Normal 0.55-1.02 [facility] Comment on above: Performed By: #### B WATERMELON HARVESTING SUPERVISOR #### [facility] [address] [place] [address] Dr. Erasmo Smith EGFR-AF TANZANIAN >60 Normal >=60 The [facility] Comment on above: Performed By: #### B WATERMELON HARVESTING SUPERVISOR #### [facility] [address] [place] [address] Dr. Erasmo Smith EGFR-NON AF TANZANIAN >60 Normal >=60 [facility] Comment on above: Performed By: #### B WATERMELON HARVESTING SUPERVISOR #### [facility] [address] [place] [address] Dr. Erasmo Smith Globulin (S) [Mass/Vol] 4.0 g/dL Normal [facility] Comment on above: Performed By: #### B WATERMELON HARVESTING SUPERVISOR #### [facility] [address] [place] [address] Dr. Erasmo Smith Glucose [Mass/Vol] 132 mg/dL Critically high 74-106 [facility] Comment on above: Performed By: #### B WATERMELON HARVESTING SUPERVISOR #### [facility] [address] [place] [address] Dr. Erasmo Smith Potassium [Moles/Vol] 3.5 mmol/L Normal 3.5-5.1 [facility] Comment on above: Performed By: #### B WATERMELON HARVESTING SUPERVISOR #### [facility] [address] [place] [address] Dr. Erasmo Smith Protein [Mass/Vol] 6.6 g/dL Normal 6.4-8.2 [facility] Comment on above: Performed By: #### B WATERMELON HARVESTING SUPERVISOR #### [facility] [address] [place] [address] Dr. Erasmo Smith Sodium [Moles/Vol] 138 mmol/L Normal 136-145 [facility] Comment on above: Performed By: #### B WATERMELON HARVESTING SUPERVISOR #### [facility] [address] [place] [address] Dr. Erasmo Smith Urea nitrogen [Mass/Vol] 24.0 mg/dL Critically high 7.0-18.0 [facility] Comment on above: Performed By: #### B WATERMELON HARVESTING SUPERVISOR #### [facility] [address] [place] [address] Dr. Erasmo Smith Urea nitrogen/Creatinine [Mass ratio] 43.6 mg/mg Normal [facility] Comment on above: Performed By: #### B WATERMELON HARVESTING SUPERVISOR #### [facility] [address] [place] [address] Dr. Erasmo Smith PROTIMEon 12-03-2022 INR Coag (PPP) [Relative time] 4.41 {INR} Critically high [facility] Comment on above: Performed By: #### C MREP #### [facility] [address] [place] [address] Dr. Erasmo Smith INR GUIDELINES SEE BELOW Normal [facility] Comment on above: Result Comment: ABNER RED INR: 2.0 - 3.0 CONDITIONS NOT LISTED BELOW 2.5 - 3.5 FOR PROSTHETIC HEART VALVE REPLACEMENT 2.5 - 3.5 RECURRENT THROMBOSIS Performed By: #### C MREP #### [facility] [address] [place] [address] Dr. Erasmo Smith PT Coag (PPP) [Time] 43.0 s Critically high 9.0-11.6 [facility] Comment on above: Performed By: #### C MREP #### [facility] [address] [place] [address] Dr. Erasmo Smith BLOOD CULTURE ID PANELon A. baumannii Not detected Normal NOT DETECTED The [facility] Comment on above: Performed By: #### B CID2 ####[facility] [address] [place] [id number]. Yiean Smith Bacteriodes fragilis Not detected Normal NOT DETECTED [facility] Comment on above: Performed By: #### B CID2 ####[facility] [address] [place] [id number]. Yiean Smith BCID CONTROLS PASSED Normal The [facility] Comment on above: Performed By: #### B CID2 ####[facility] [address] [place] [id number]. Yiean Smith BCIDBTHD BLOOD CULTURE BOTTLE INFORMATION Normal [facility] Comment on above: Performed By: #### B CID2 ####[facility] [address] [place] [address]Dr. Yiean Smith BCIDHD1 ANTIMICROBIAL RESISTANCE GENES [facility] Comment on above: Performed By: #### B CID2 ####[facility] [address] [place], [place] [address]Dr. Yiean Smith BCIDHD2 SEE BELOW Normal [facility] Comment on above: Result Comment: Note : Antimicrobial resitance can occur via multiple mechanisms. A Not Detected result for the [employer] antomicrobial resistance gene assays does not indicate antimicrobial susceptibility. Subculturing is required for species identification and susceptibility testing of isolates. Performed By: #### B CID2 ####[facility] [address] [place], [place] [address]Dr. Yiean Smith BCIDHD3 Positive Normal [facility] Comment on above: Performed By: #### B CID2 ####[facility] [address] [place] [address]Dr. Yilan Smith BCIDHD4 Negative Normal [facility] Comment on above: Performed By: #### B CID2 ####[facility] [address] [place] [address]Dr. Yiean Smith BCIDHD5 YEAST Normal [facility] Comment on above: Performed By: #### B CID2 ####[facility] [address] [place], [place] [address]Dr. Heavenlan Smith Bottle Set: Set 1 Normal [facility] Comment on above: Performed By: #### B CID2 ####[facility] [address] [place] [address]Dr. Erasmo [place] [employer]: Anaerobic Normal [facility] Comment on above: Performed By: #### B CID2 ####[facility] [address] [place] [address]Dr. Erasmo Smith C. neoformans/gattii Not detected Normal NOT DETECTED [facility] Comment on above: Performed By: #### B CID2 ####[facility] Drdktridzu[address] [place] [address]Dr. Yiean Smith Rashid albicans Not detected Normal NOT DETECTED [facility] Comment on above: Performed By: #### B CID2 ####[facility] Eihmhschgd[address] [place], [place] [address]Dr. Erasmo Smith Rashid auris Not detected Normal NOT DETECTED The [facility] Comment on above: Performed By: #### B CID2 ####[facility] Pnqtbnedry[address] [place], [place] [address]Dr. Yiean Smith Rashid glabrata Not detected Normal NOT DETECTED [facility] Comment on above: Performed By: #### B CID2 ####[facility] Zupapnudvl225[address] [place], [place] [address]Dr. Yiean Smith Rashid Krusei Not detected Normal NOT DETECTED The [facility] Comment on above: Performed By: #### B CID2 ####[facility] Lxgrxmctvy219[address] [place], [place] [address]Dr. Yiean Smith Rashid Parapsilosis Not detected Normal NOT DETECTED [facility] Comment on above: Performed By: #### B CID2 ####[facility] [address]xkvncthp64[address] [place] [address]Dr. Erasmo Smith Rashid Tropicalis Not detected Normal NOT DETECTED [facility] Comment on above: Performed By: #### B CID2 ####[facility] Dydjdbregm[address] [place], [place] [address]Dr. Erasmo Smith CTX-M Resistant Gene Not Applicable Normal NOT DETECTE D [facility] Comment on above: Performed By: #### B CID2 ####[facility] Ydcljavwux9[address] [place], [place] [address]Dr. Erasmo Smith E. Cloacae complex Not detected Normal NOT DETECTED [facility] Comment on above: Performed By: #### B CID2 ####[facility] Unoygpdbyi3139[address] [place], [place] [address]Dr. Erasmo Smith E. faecalis Not detected Normal NOT DETECTED The [facility] Comment on above: Performed By: #### B CID2 ####[facility] Lrdrugqzso259[address] [place], [place] [address]Dr. Erasmo Smith E. faecium Not detected Normal NOT DETECTED The [facility] Comment on above: Performed By: #### B CID2 ####[facility] Mbvpygfxbd674[address] [place], [place] [address]Dr. Erasmo Smith Enterobacteriaceae Detected Critically abnormal NOT DETECTED [facility] Comment on above: Performed By: #### B CID2 ####[facility] Bhrbdbnzfo232[address] [place], [place] [address]Dr. Erasmo Smith Escherichia coli Detected Critically abnormal NOT DETECTED [facility] Comment on above: Performed By: #### B CID2 ####[facility] Tdjvnjdmrl15[address] [place], [place] [address]Dr. Erasmo Smith H. influenzae Not detected Normal NOT DETECTED The [facility] Comment on above: Performed By: #### B CID2 ####[facility] Fwshufowun20[address] [place], [place] [address]Dr. Erasmo Smith IMP Resistant Gene Not Applicable Normal NOT DETECTED [facility] Comment on above: Performed By: #### B CID2 ####[facility] Askcwwsxwf4389[address] [place], [place] [address]Dr. Erasmo Smith K. oxytoca Not detected Normal NOT DETECTED The [facility] Comment on above: Performed By: #### B CID2 ####[facility] Qhxjeokedp3699[address] [place], [place] [address]Dr. Erasmo Smith K. pneumoniae Not detected Normal NOT DETECTED The [facility] Comment on above: Performed By: #### B CID2 ####[facility] Tsmytxbbop969[address] [place], [place] [address]Dr. Erasmo Smith Klebsiella aerogenes Not detected Normal NOT DETECTED [facility] Comment on above: Performed By: #### B CID2 ####[facility] Nplzhjjyjo[address] [place] [address]Dr. Erasmo Smith KPC Resistant Gene Not detected Normal NOT DETECTED [facility] Comment on above: Performed By: #### B CID2 ####[facility] Zlrthxmkfp38[address] [place] [address]Dr. Erasmo Smith List. monocytogenes Not detected Normal NOT DETECTED T [facility] Comment on above: Performed By: #### B CID2 ####[facility] Taseslplxn2596[address] [place], [place] [address]Dr. Erasmo Smith Mcr-1 Resistant Gene Not Applicable Normal NOT DETECTE D [facility] Comment on above: Performed By: #### B CID2 ####[facility] Uetfunvora7465[address] [place], [place] [address]Dr. Erasmo Smith mecA/C Not Applicable Normal NOT DETECTED The [facility] Comment on above: Performed By: #### B CID2 ####[facility] Hpzbpixqxw6973[address] [place], [place] [address]Dr. Erasmo Smith mecA/C MREJ Not Applicable Normal NOT DETECTED The [facility] Comment on above: Performed By: #### B CID2 ####[facility] Qamdmszbtr079350 [address] [place], [place] [address]Dr. Erasmo Smith N. meningitidis Not detected Normal NOT DETECTED The [facility] Comment on above: Performed By: #### B CID2 ####[facility] Xpabtettwh7049[address] [place], [place] [address]Dr. Erasmo Smith NDM Resistant Gene Not Applicable Normal NOT DETECTED [facility] Comment on above: Performed By: #### B CID2 ####[facility] Urihmjqudt4686[address] [place], [place] [address]Dr. Erasmo Smith Oxa-48-like Not Applicable Normal NOT DETECTED The [facility] Comment on above: Performed By: #### B CID2 ####[facility] Obzjxbilix1746[address] [place], [place] [address]Dr. Erasmo Smith Proteus Not detected Normal NOT DETECTED The [facility] Comment on above: Performed By: #### B CID2 ####[facility] Axfanhdwvl3160[address] [place], [place] [address]Dr. Erasmo Smith Pseud. aeruginosa Not detected Normal NOT DETECTED [facility] Comment on above: Performed By: #### B CID2 ####[facility] Ttdiiceeko2544[address] [place], [place] [address]Dr. Erasmo Smith S. maltophilia Not detected Normal NOT DETECTED The [facility] Comment on above: Performed By: #### B CID2 ####[facility] Gswdemzhrc537[address] [place], [place] [address]Dr. Erasmo Smith Salmonella Not detected Normal NOT DETECTED The [facility] Comment on above: Performed By: #### B CID2 ####[facility] Rmwulltgcz4007[address] [place], [place] [address]Dr. Erasmo Smith Seratia marcescens Not detected Normal NOT DETECTED [facility] Comment on above: Performed By: #### B CID2 ####[facility] Ogvewsyqqv517[address] [place], [place] [address]Dr. Erasmo Smith Site: l ac Normal [facility] Comment on above: Performed By: #### B CID2 ####[facility] Fihmpvnqjv0325[address] [place], [place] [address]Dr. Heavenean Smith Staph. aureus Not detected Normal NOT DETECTED The [facility] Comment on above: Performed By: #### B CID2 ####[facility] Becwgrybzq786350 [address] [place], [place] [address]Dr. Erasmo Smith Staph. epidermidis Not detected Normal NOT DETECTED [facility] Comment on above: Performed By: #### B CID2 ####[facility] Qgotkddjgj9513[address] [place], [place] [address]Dr. Erasmo Smith Staph. lugdunensis Not detected Normal NOT DETECTED [facility] Comment on above: Performed By: #### B CID2 ####[facility] Amcgxvmgqn4543[address] [place], [place] [address]Dr. Erasmo Smith Staphylococcus Not detected Normal NOT DETECTED The [facility] Comment on above: Performed By: #### B CID2 ####[facility] [address]ncrqaw[address] [place] [address]Dr. Erasmo Smith Strep. agalactiae Not detected Normal NOT DETECTED [facility] Comment on above: Performed By: #### B CID2 ####[facility] Qnptkqdjxb90[address] [place] [address]Dr. Erasmo Smith Strep. pneumoniae Not detected Normal NOT DETECTED [facility] Comment on above: Performed By: #### B CID2 ####[facility] Mtjzlvaixk3156[address] [place], [place] [address]Dr. Erasmo Smith Strep. pyogenes Not detected Normal NOT DETECTED The [facility] Comment on above: Performed By: #### B CID2 ####[facility] Ldzgrabcki9993[address] [place], [place] [address]Dr. Erasmo Smith Streptococcus Not detected Normal NOT DETECTED The [facility] Comment on above: Performed By: #### B CID2 ####[facility] Tvktuhodre4570[address] [place], [place] [address]Dr. Erasmo Smith Fran/B Resist. Gene Not detected Normal NOT DETECTED [facility] Comment on above: Performed By: #### B CID2 ####[facility] Dkgceyjuzn409[address] [place], [place] [address]Dr. Erasmo Smith VIM Resistant Gene Not Applicable Normal NOT DETECTED [facility] Comment on above: Performed By: #### B CID2 ####[facility] Hxtuocbswj4[address] [place], [place] [address]Dr. Erasmo Smith BNPon 12-02-2022 Natriuretic peptide B (Bld) [Mass/Vol] 1059.0 pg/mL Normal <=1,800.0 [facility] Comment on above: Performed By: #### B WATERMELON HARVESTING SUPERVISOR #### [facility] [address] [address] [address] Erasmo Smith CBC AUTO DIFFon 12-02-2022 BASO # 0.0 103/ul Normal 0.0-0.1 [facility] Comment on above: Performed By: #### C BC ####[facility] Ouimgyybux[address] [place], [place] [address]Dr. Erasmo Smith Basophils/100 WBC (Bld) 0.2 % Normal 0.2-2.0 [facility] Comment on above: Performed By: #### C BC ####[facility] Uyxzigymfr[address] [place] [address]Dr. Erasmo Smith EO # 0.0 103/ul Normal 0.0-0.7 [facility] Comment on above: Performed By: #### C BC ####[facility] Ehdiizgvvr[address] [place] [address]Dr. Erasmo Smith Eosinophils/100 WBC (Bld) 0.0 % Critically low 0.9-7.0 [facility] Comment on above: Performed By: #### C BC ####[facility] Elsqfwztpz[address] [place], [place] [address]Dr. Erasmo Smith Erythrocyte distribution width (RBC) [Ratio] 17.3 % Critically high 11.0-15.0 [facility] Comment on above: Performed By: #### C BC ####[facility] Olnpkoaxmx52[address] [place], [place] [address]Dr. Erasmo Smith Hematocrit (Bld) [Volume fraction] 31.4 % Critically low 36.0-48.0 [facility] Comment on above: Performed By: #### C BC ####[facility] Ytyidosqdp038[address] [place], [place] [address]Dr. Erasmo Smith Hemoglobin (Bld) [Mass/Vol] 10.0 g/dL Critically low 12.0-16.0 [facility] Comment on above: Performed By: #### C BC ####[facility] Whdjjuophd3523[address] [place], [place] [address]Dr. Erasmo Smith IG # 0.06 10e3/ul Critically high 0.00-0.03 [facility] Comment on above: Performed By: #### C BC ####[facility] Fbwjsnhfyp5430[address] [place], [place] [address]Dr. Erasmo Smith IG % 0.4 % Normal 0.0-0.5 [facility] Comment on above: Performed By: #### C BC ####[facility] Fen[address]astbac[address] [place] [address]Dr. Erasmo Smith LYMPH # 1.3 103/ul Normal 1.2-3.8 [facility] Comment on above: Performed By: #### C BC ####[facility] [address] [place] [address]Dr. Heavenean Smith Lymphocytes/100 WBC (Bld) 8.1 % Critically low 20.5-60.0 [facility] Comment on above: Performed By: #### C BC ####[facility] [address]aztm[address] [place] [address]Dr. Erasmo Smith MANUAL DIFF REQ NO Normal [facility] Comment on above: Performed By: #### C BC ####[facility] [address]fg[address]cut[address] [place] [address]Dr. Erasmo Smith MCH (RBC) [Entitic mass] 25.6 pg Critically low 26.7-34.0 [facility] Comment on above: Performed By: #### C BC ####[facility] Yzwphvurgw[address] [place], [place] [address]Dr. Erasmo Smith MCHC (RBC) [Mass/Vol] 31.8 g/dL Normal 29.9-35.2 [facility] Comment on above: Performed By: #### C BC ####[facility] [address] [place] [address]Dr. Erasmo Smith MCV (RBC) [Entitic vol] 80.3 fL Critically low 81.0-99.0 [facility] Comment on above: Performed By: #### C BC ####[facility] Rprdykynjd[address] [place] [address]Dr. Erasmo Smith MONO # 0.6 103/ul Normal 0.3-0.8 [facility] Comment on above: Performed By: #### C BC ####[facility] B[address]apmywje[address] [place], [place] [address]Dr. Erasmo Smith Monocytes/100 WBC (Bld) 3.7 % Normal 1.7-12.0 [facility] Comment on above: Performed By: #### C BC ####[facility] [address] [place], [place] [address]Wj. Erasmo Smith NEUT # 14.5 103/ul Critically high 1.4-6.5 The [facility] Comment on above: Performed By: #### C BC ####[facility] [address]qs[address] [place] [id number]. Erasmo Smith Neutrophils/100 WBC (Bld) 87.6 % Critically high 43.0-75.0 [facility] Comment on above: Performed By: #### C BC ####[facility] [address]ct[address]kyau[address] [place] [address]Dr. Erasmo Smith Platelet mean volume (Bld) [Entitic vol] 10.0 fL Normal 9.5-13.5 [facility] Comment on above: Performed By: #### C BC ####[facility] [address] [place] [address]Dr. Erasmo Smith PLT 206 103/ul Normal 150-450 [facility] Comment on above: Performed By: #### C BC ####[facility] [address]mu[address] [place] [id number]. Erasmo Smith RBC 3.91 106/ul Critically low 4.20-5.40 [facility] Comment on above: Performed By: #### C BC ####[facility] [address]peg[address] [place] [address]Dr. Erasmo Smith WBC 16.5 103/ul Critically high 4.0-11.0 The [facility] Comment on above: Performed By: #### C BC ####[facility] [address] [place] [id number]. Erasmo Smith ECHOCARDIO M/2D COMPLETEon 0 12-02-2022 ECHOCARDIO M/2D COMPLETE Patient: BREANN STARKS Exam Date: 12/02/2022 : 1945 Gender:F Ordering : KAYLEY HOLMAN . Admission #: [id number] Family : DR LUISANA JOHNSON . Order #: [id number] CLICK HERE TO VIEW EXAM ECHOCARDIOGRAM REPORT [...] Salazar M.D. on 12/02/2022 at 21:58 Normal [facility] MAGNESIUMon 12-02-2022 Magnesium [Mass/Vol] 2.0 mg/dL Normal 1.8-2.4 [facility] Comment on above: Performed By: #### B WATERMELON HARVESTING SUPERVISOR #### [facility] [address] [place] [address] Dr. Erasmo Smith PROF 14(COMP METB)on 023 Albumin [Mass/Vol] 2.7 g/dL Critically low 3.4-5.0 Th [facility] Comment on above: Performed By: #### B WATERMELON HARVESTING SUPERVISOR #### [facility] [address] [place] [address] Dr. Erasmo Smith Albumin/Globulin [Mass ratio] 0.6 {ratio} Normal [facility] Comment on above: Performed By: #### B WATERMELON HARVESTING SUPERVISOR #### [facility] [address] [place] [address] Dr. Erasmo Smith ALP [Catalytic activity/Vol] 128 U/L Critically high 46-116 [facility] Comment on above: Performed By: #### B WATERMELON HARVESTING SUPERVISOR #### [facility] [address] [place] [address] Dr. Erasmo Smith ALT [Catalytic activity/Vol] 34 U/L Normal 14-59 [facility] Comment on above: Performed By: #### B WATERMELON HARVESTING SUPERVISOR #### [facility] [address] [place] [address] Dr. Erasmo Smith Anion gap [Moles/Vol] 10.6 mmol/L Normal [facility] Comment on above: Performed By: #### B WATERMELON HARVESTING SUPERVISOR #### [facility] [address] [address] [address] Erasmo Smith AST [Catalytic activity/Vol] 27 U/L Normal 15-37 [facility] Comment on above: Performed By: #### B WATERMELON HARVESTING SUPERVISOR #### [facility] [address] [address] [address] Erasmo Smith Bilirubin [Mass/Vol] 0.5 mg/dL Normal 0.2-1.0 [facility] Comment on above: Performed By: #### B WATERMELON HARVESTING SUPERVISOR #### [facility] [address] [place] [address] Dr. Erasmo Smith Calcium [Mass/Vol] 8.4 mg/dL Critically low 8.5-10.1 [facility] Comment on above: Performed By: #### B WATERMELON HARVESTING SUPERVISOR #### [facility] [address] [place] [address] Dr. Erasmo Smith Chloride [Moles/Vol] 104 mmol/L Normal 98-107 [facility] Comment on above: Performed By: #### B WATERMELON HARVESTING SUPERVISOR #### [facility] [address] [address] [address] Erasmo Smith CO2 [Moles/Vol] 26.2 mmol/L Normal 21.0-32.0 [facility] Comment on above: Performed By: #### B WATERMELON HARVESTING SUPERVISOR #### [facility] [address] [place] [address] Dr. Erasmo Smith Creatinine [Mass/Vol] 0.52 mg/dL Critically low 0.55-1.02 [facility] Comment on above: Performed By: #### B WATERMELON HARVESTING SUPERVISOR #### [facility] [address] [place] [address] Dr. Erasmo Smith EGFR-AF TANZANIAN >60 Normal >=60 [facility] Comment on above: Performed By: #### B WATERMELON HARVESTING SUPERVISOR #### [facility] [address] [place] [address] Dr. Erasmo Smith EGFR-NON AF TANZANIAN >60 Normal >=60 [facility] Comment on above: Performed By: #### B WATERMELON HARVESTING SUPERVISOR #### [facility] [address] [address] [address] Erasmo Smith Globulin (S) [Mass/Vol] 4.3 g/dL Normal [facility] Comment on above: Performed By: #### B WATERMELON HARVESTING SUPERVISOR #### [facility] [address] [address] [address] Erasmo Smith Glucose [Mass/Vol] 135 mg/dL Critically high 74-106 [facility] Comment on above: Performed By: #### B WATERMELON HARVESTING SUPERVISOR #### [facility] [address] [address] [address] Erasmo Smith Potassium [Moles/Vol] 3.8 mmol/L Normal 3.5-5.1 [facility] Comment on above: Performed By: #### B WATERMELON HARVESTING SUPERVISOR #### [facility] [address] [address] [address] Erasmo Smith Protein [Mass/Vol] 7.0 g/dL Normal 6.4-8.2 [facility] Comment on above: Performed By: #### B WATERMELON HARVESTING SUPERVISOR #### [facility] [address] [address] [address] Erasmo Smith Sodium [Moles/Vol] 137 mmol/L Normal 136-145 [facility] Comment on above: Performed By: #### B WATERMELON HARVESTING SUPERVISOR #### [facility] [address] [address] [address] Erasmo Smith Urea nitrogen [Mass/Vol] 16.0 mg/dL Normal 7.0-18.0 [facility] Comment on above: Performed By: #### B WATERMELON HARVESTING SUPERVISOR #### [facility] [address] [address] [address] Erasmo Smith Urea nitrogen/Creatinine [Mass ratio] 30.8 mg/mg Normal [facility] Comment on above: Performed By: #### B WATERMELON HARVESTING SUPERVISOR #### [facility] [address] [address] [address] Erasmo Smith PROTIMEon 12-02-2022 INR Coag (PPP) [Relative time] 4.39 {INR} Critically high [facility] Comment on above: Performed By: #### P T #### [facility] [address] [address] [address] Erasmo Smith INR GUIDELINES SEE BELOW Normal [facility] Comment on above: Result Comment: ABNER RED INR: 2.0 - 3.0 CONDITIONS NOT LISTED BELOW 2.5 - 3.5 FOR PROSTHETIC HEART VALVE REPLACEMENT 2.5 - 3.5 RECURRENT THROMBOSIS Performed By: #### P T #### [facility] [address] [address] [address] Erasmo Smith PT Coag (PPP) [Time] 42.8 s Critically high 9.0-11.6 [facility] Comment on above: Performed By: #### P T #### [facility] [address] [address] [address] Erasmo Smith UA RANDOM W/MICROSCOPICon BACTERIA NONE SEEN Normal NONE SEEN [facility] Comment on above: Performed By: #### U AMIC ####[facility] [address] [place] [address]Dr. Erasmo Smith Bilirubin Ql (U) Negative Normal NEGATIVE [facility] Comment on above: Performed By: #### U AMIC ####[facility] [address]woxmfw[address] [place], [place] [address]DrMeena Smith CAST NONE SEEN Normal NONE SEEN [facility] Comment on above: Performed By: #### U AMIC ####[facility] [address]asm[address] [place] [address]Dr. Erasmo Smith Clarity (U) CLEAR Normal CLEAR [facility] Comment on above: Performed By: #### U AMIC ####[facility] [address] [place] [address]DrMeena Smith Color (U) YELLOW Normal YELLOW [facility] Comment on above: Performed By: #### U AMIC ####[facility] [address] [place] [address]Dr. Erasmo Smith Crystals LM Nom (Urine sed) NONE SEEN Normal NONE SEEN [facility] Comment on above: Performed By: #### U AMIC ####[facility] [address]abs[address] [place] [address]Dr. Erasmo Smith Epithelial cells LM Ql (Urine sed) RARE Normal NONE SEEN /RARE [facility] Comment on above: Performed By: #### U AMIC ####[facility] [address] [place] [address]Dr. Erasmo Smith Glucose Ql (U) Negative Normal NEGATIVE [facility] Comment on above: Performed By: #### U AMIC ####[facility] [address] [place] [address]Dr. Erasmo Smith Hemoglobin Ql (U) SMALL Abnormal NEGATIVE [facility] Comment on above: Performed By: #### U AMIC ####[facility] [address]spnmmrb[address] [place], [place] [address]Dr. Erasmo Smith Ketones Ql (U) 15 mg/dl Abnormal NEGATIVE [facility] Comment on above: Performed By: #### U AMIC ####[facility] [address] [place], [place] [address]Dr. Erasmo Smith LEUKOCYTES Negative Normal NEGATIVE [facility] Comment on above: Performed By: #### U AMIC ####[facility] Asqfoqaevj[address] [place], [place] [address]Dr. Erasmo Smith MUCOUS NONE SEEN Normal NONE SEEN [facility] Comment on above: Performed By: #### U AMIC ####[facility] [address] [place] [address]Dr. Erasmo Simth Nitrite Ql (U) Negative Normal NEGATIVE [facility] Comment on above: Performed By: #### U AMIC ####[facility] [address]vx[address] [place] [address]Dr. Erasmo Smith pH (U) 6.0 [pH] Normal 5-9 [facility] Comment on above: Performed By: #### U AMIC ####[facility] [address] [place], [place] [address]Dr. Erasmo Smith RBC 0-2 Normal 0-2 [facility] Comment on above: Performed By: #### U AMIC ####[facility] [address] [place] [address]Dr. Erasmo Smith SPEC GRAVITY 1.025 Normal 1.005-<=1.02 5 [facility] Comment on above: Performed By: #### U AMIC ####[facility] [address] [place] [address]DrMeena Smith UA PROTEIN TRACE Normal NEGATIVE/ TRACE [facility] Comment on above: Performed By: #### U AMIC ####[facility] [address] [place] [address]DrMeena Smith Urobilinogen Qn (U) 4 {Shraddha'U}/dL Abnormal 0.2 - 1.0 [facility] Comment on above: Performed By: #### U AMIC ####[facility] [address] [place] [address]DrMeena Smith WBC 0-2 Abnormal NONE SEEN [facility] Comment on above: Performed By: #### U AMIC ####[facility] [address] [place] [address]DrMeena Smith CARDIAC ROSA ELENA 3-6on 3 CK [Catalytic activity/Vol] 53 U/L Normal 26-192 [facility] Comment on above: Performed By: #### C MREP #### [facility] [address] [address] [address] Erasmo Smith CK.MB [Mass/Vol] 0.90 ng/mL Normal <=3.60 [facility] Comment on above: Performed By: #### C MREP #### [facility] [address] [address] [address] Erasmo Smith HSTROP 116.7 pg/mL Critically high 4.0-51.3 [facility] Comment on above: Result Comment: CUT- OFF POINTS HAVE BEEN ESTABLISHED BASED ON THE FOURTH UNIVERSAL DEFINITIONS OF MYOCARDIAL INFARCTION. THE UPPER REFERENCE LIMIT (URL) OF TROPONIN, DEFINED THE 99TH PERCENTILE OF cTnI DISTRIBUTION IN A REFERENCE POPULATION, HAS BEEN CONFIRMED THE DECISION THRESHOLD FOR MA DIAGNOSIS. Performed By: #### C MREP #### [facility] [address] [address] [address] Earsmo Smith CK [Catalytic activity/Vol] 47 U/L Normal 26-192 [facility] Comment on above: Performed By: #### B WATERMELON HARVESTING SUPERVISOR #### [facility] [address] [place] [address] Dr. Erasmo Smith CK.MB [Mass/Vol] 1.00 ng/mL Normal <=3.60 [facility] Comment on above: Performed By: #### B WATERMELON HARVESTING SUPERVISOR #### [facility] [address] [place] [address] Dr. Erasmo Smith HSTROP 154.3 pg/mL Critically high 4.0-51.3 [facility] Comment on above: Result Comment: CUT- OFF POINTS HAVE BEEN ESTABLISHED BASED ON THE FOURTH UNIVERSAL DEFINITIONS OF MYOCARDIAL INFARCTION. THE UPPER REFERENCE LIMIT (URL) OF TROPONIN, DEFINED THE 99TH PERCENTILE OF cTnI DISTRIBUTION IN A REFERENCE POPULATION, HAS BEEN CONFIRMED THE DECISION THRESHOLD FOR MA DIAGNOSIS. Performed By: #### B WATERMELON HARVESTING SUPERVISOR #### [facility] [address] [place] [address] Dr. Erasmo Smith CBC W MANUAL DIFFon 12-02-19 23 ATYPICAL LYMPH # Normal [facility] Comment on above: Performed By: #### C ANGELA #### [facility] [address] [place] [address] Dr. Erasmo Smith ATYPICAL LYMPH % Normal [facility] Comment on above: Performed By: #### C ANGELA #### [facility] [address] [place] [address] Dr. Erasmo Smith BAND # 0.6 103/ul Critically high 0.0-0.3 [facility] Comment on above: Performed By: #### C ANGELA #### [facility] [address] [place] [address] Dr. Erasmo Smith BAND % 3 % Normal 0-5 [facility] Comment on above: Performed By: #### C ANGELA #### [facility] [address] [place] [address] Dr. Erasmo Smith BASOM # 0.00 103/ul Normal 0.00-0.10 [facility] Comment on above: Performed By: #### C ANGELA #### [facility] [address] [address] [address] Erasmo Smith BASOM % 0.0 % Critically low 0.2-2.0 [facility] Comment on above: Performed By: #### C BCMAN #### [facility] [address] [address] [address] Erasmo Smith BLAST # Normal [facility] Comment on above: Performed By: #### C BCMAN #### [facility] [address] [address] [address] Erasmo Smith BLAST % Normal [facility] Comment on above: Performed By: #### C BCBLAISE #### [facility] [address] [place] [address] Dr. Erasmo Smith CORRECTED WBC Normal 4.0-11.0 [facility] Comment on above: Performed By: #### C BCBLAISE #### [facility] [address] [place] [address] Dr. Erasmo Smith EOS # 0.19 103/ul Normal 0.00-0.70 [facility] Comment on above: Performed By: #### C BCBLAISE #### [facility] [address] [place] [address] Dr. Erasmo Smith EOS% 1.0 % Normal 0.9-7.0 [facility] Comment on above: Performed By: #### C BCBLAISE #### [facility] [address] [place] [address] Dr. Erasmo Smith HCT 32.7 % Critically low 36.0-48.0 [facility] Comment on above: Performed By: #### C BCMAN #### [facility] [address] [place] [address] Dr. Erasmo Smith HGB 10.5 g/dl Critically low 12.0-16.0 [facility] Comment on above: Performed By: #### C BCMAN #### [facility] [address] [place] [address] Dr. Erasmo Smith LYMPHM # 0.76 103/ul Critically low 1.20-3.80 [facility] Comment on above: Performed By: #### C ANGELA #### [facility] [address] [address] [address] Erasmo Smith LYMPHM% 4.0 % Critically low 20.5-60.0 [facility] Comment on above: Performed By: #### C ANGELA #### [facility] [address] [address] [address] Erasmo Smith MCH 25.9 pg Critically low 26.7-34.0 [facility] Comment on above: Performed By: #### C ANGELA #### [facility] [address] [place] [address] Dr. Erasmo Smith MCHC 32.1 g/dl Normal 29.9-35.2 [facility] Comment on above: Performed By: #### C ANGELA #### [facility] [address] [place] [address] Dr. Erasmo Smith MCV 80.5 fL Critically low 81.0-99.0 [facility] Comment on above: Performed By: #### C ANGELA #### [facility] [address] [place] [address] Dr. Erasmo Smith METAMYELOCYTE # Normal [facility] Comment on above: Performed By: #### C ANGELA #### [facility] [address] [place] [address] Dr. Erasmo Smith METAMYELOCYTE % Normal [facility] Comment on above: Performed By: #### C ANGELA #### [facility] [address] [address] [address] Erasmo Smith MONOM# 1.14 103/ul Critically high 0.30-0.80 [facility] Comment on above: Performed By: #### C ANGELA #### [facility] [address] [place] [address] Dr. Erasmo Smith MONOM% 6.0 % Normal 1.7-12.0 [facility] Comment on above: Performed By: #### C ANGELA #### [facility] [address] [place] [address] Dr. Erasmo Smith MPV 9.4 fL Critically low 9.5-13.5 [facility] Comment on above: Performed By: #### C ANGELA #### [facility] [address] [place] [address] Dr. Erasmo Smith MYELOCYTE # Normal [facility] Comment on above: Performed By: #### C ANGELA #### [facility] [address] [address] [address] Erasmo Smith MYELOCYTE % Normal [facility] Comment on above: Performed By: #### C ANGELA #### [facility] [address] [address] [address] Erasmo Smith NRBC Normal [facility] Comment on above: Performed By: #### C ANGELA #### [facility] [address] [place] [address] Dr. Erasmo Smith PLT 195 103/ul Normal 150-450 [facility] Comment on above: Performed By: #### C ANGELA #### [facility] [address] [place] [address] Dr. Erasmo Smith RBC 4.06 106/ul Critically low 4.20-5.40 [facility] Comment on above: Performed By: #### C ANGELA #### [facility] [address] [place] [address] Dr. Erasmo Smith RDW 17.7 % Critically high 11.0-15.0 [facility] Comment on above: Performed By: #### C ANGELA #### [facility] [address] [address] [address] Erasmo Smith SEG # 16.34 103/ul Critically high 1.40-6.50 [facility] Comment on above: Performed By: #### C ANGELA #### [facility] [address] [place] [address] Dr. Erasmo Smith SEG % 86.0 % Critically high 43.0-75.0 [facility] Comment on above: Performed By: #### C ANGELA #### [facility] [address] [place] [address] Dr. Erasmo Smith WBC 19.0 103/ul Critically high 4.0-11.0 [facility] Comment on above: Performed By: #### C BCMAN #### [facility] [address] [place], [place] [address] HEAD WO CONon [...] SALOME MCCORMICK Date: 2022 14:50 Normal [facility] CULTURE BLOODon 2022 Microscopic examination of blood, culture Culture Observations: Aerobic and Anaerobic bottle positive. BCID: E. Coli Culture Observations: Refer to for VIOLET. Isolate 1 Escherichia coli Growth of Normal [facility] Comment on above: Performed By: #### B LDCX2 ####[facility] [address] [place], [place] [address]RcDr. Erasmo Smith Covid-19 PCR (CVDTBH)on 11-11 SARS-CoV-2 (COVID-19) RNA EMILY+probe Ql (Unsp spec) Not detected Normal NOT DETECTED [facility] Comment on above: Result Comment: When [...] for this test is supported by the [place] of [employer] and Human Service's declaration that [...] used). Performed By: #### C MREP #### [facility] [address] [address] [address] Erasmo Smith LACTATE/LACTIC ACIDon 2022 Lactate [Moles/Vol] 1.2 mmol/L Normal 0.4-2.0 [facility] Comment on above: Performed By: #### L ACT ####[facility] [address] [place] [address]Dr. Erasmo Smith PH VENOUS BLOODon 2022 PCO2 VENOUS 37.8 mmHg Critically low 40.0-52.0 [facility] Comment on above: Performed By: #### P HVEN ####[facility] [address] [place] [address]DrMeena Smith pH VENOUS 7.417 Normal 7.330-7.430 [facility] Comment on above: Performed By: #### P HVEN ####[facility] [address] [place] [id number]. Erasmo Smith PROF 14(COMP METB)on 023 Albumin [Mass/Vol] 3.1 g/dL Critically low 3.4-5.0 [facility] Comment on above: Performed By: #### H ALEXSANDER, CMP ####[facility] [address] [place] [id number] Smith Albumin/Globulin [Mass ratio] 0.8 {ratio} Normal [facility] Comment on above: Performed By: #### H ALEXSANDER, CMP ####[facility] [address] [place] [address]DrMeena Smith ALP [Catalytic activity/Vol] 194 U/L Critically high 46-116 [facility] Comment on above: Performed By: #### H ALEXSANDER, CMP ####[facility] [address] [place] [address]Dr. Erasmo Smith ALT [Catalytic activity/Vol] 37 U/L Normal 14-59 [facility] Comment on above: Performed By: #### H DAMONPN, CMP ####[facility] [address] [place] [address]Dr. Erasmo Smith Anion gap [Moles/Vol] 14.6 mmol/L Normal [facility] Comment on above: Performed By: #### H STROLYNDA, CMP ####[facility] [address] [place] [address]Dr. Erasmo Smith AST [Catalytic activity/Vol] 32 U/L Normal 15-37 [facility] Comment on above: Performed By: #### H ALEXSANDER, CMP ####[facility] [address] [place], [place] [address]Dr. Erasmo Smith Bilirubin [Mass/Vol] 1.0 mg/dL Normal 0.2-1.0 [facility] Comment on above: Performed By: #### H ALEXSANDER, CMP ####[facility] [address] [place], [place] [address]Dr. Erasmo Smith Calcium [Mass/Vol] 8.9 mg/dL Normal 8.5-10.1 [facility] Comment on above: Performed By: #### H ALEXSANDER, CMP ####[facility] [address] [place], [place] [address]Dr. Erasmo Smith Chloride [Moles/Vol] 103 mmol/L Normal 98-107 [facility] Comment on above: Performed By: #### H ALEXSANDER, CMP ####[facility] [address] [place], [place] [address]Dr. Erasmo Smith CO2 [Moles/Vol] 23.6 mmol/L Normal 21.0-32.0 [facility] Comment on above: Performed By: #### H STROLYNDA, CMP ####[facility] [address] [place], [place] [address]Dr. Erasmo Smith Creatinine [Mass/Vol] 0.69 mg/dL Normal 0.55-1.02 [facility] Comment on above: Performed By: #### H STROPN, CMP ####[facility] [address] [place] [id number]. Erasmo Smith EGFR-AF TANZANIAN >60 Normal >=60 [facility] Comment on above: Performed By: #### H STROPN, CMP ####[facility] [address] [place] [id number]. Erasmo Smith EGFR-NON AF TANZANIAN >60 Normal >=60 [facility] Comment on above: Performed By: #### H STROPN, CMP ####[facility] [address] [place] [id number]. Erasmo Smith Globulin (S) [Mass/Vol] 4.1 g/dL Normal [facility] Comment on above: Performed By: #### H STROPN, CMP ####[facility] [address] [place] [address]Dr. Erasmo Smith Glucose [Mass/Vol] 121 mg/dL Critically high 74-106 [facility] Comment on above: Performed By: #### H STROPN, CMP ####[facility] [address] [place] [address]Dr. Erasmo Smith Potassium [Moles/Vol] 3.2 mmol/L Critically low 3.5-5.1 [facility] Comment on above: Performed By: #### H STROPN, CMP ####[facility] [address] [place] [address]Dr. Erasmo Smith Protein [Mass/Vol] 7.2 g/dL Normal 6.4-8.2 [facility] Comment on above: Performed By: #### H STROPN, CMP ####[facility] [address] [place] [address]Dr. Erasmo Smith Sodium [Moles/Vol] 138 mmol/L Normal 136-145 [facility] Comment on above: Performed By: #### H STROPN, CMP ####[facility] [address] [place] [address]Dr. Erasmo Smith Urea nitrogen [Mass/Vol] 17.0 mg/dL Normal 7.0-18.0 [facility] Comment on above: Performed By: #### H STROPN, CMP ####[facility] [address] [place] [id number]. Erasmo Smith Urea nitrogen/Creatinine [Mass ratio] 24.6 mg/mg Normal [facility] Comment on above: Performed By: #### H STROPN, CMP ####[facility] [address] [place] [id number]. Erasmo Smith PROTIMEon 2022 INR Coag (PPP) [Relative time] 3.58 {INR} Normal [facility] Comment on above: Performed By: #### P T, PTT #### [facility] [address] [address] [address] Erasmo Smith INR GUIDELINES SEE BELOW Normal [facility] Comment on above: Result Comment: ABNER RED INR: 2.0 - 3.0 CONDITIONS NOT LISTED BELOW 2.5 - 3.5 FOR PROSTHETIC HEART VALVE REPLACEMENT 2.5 - 3.5 RECURRENT THROMBOSIS Performed By: #### P T, PTT #### [facility] [address] [address] [address] Erasmo Smith PT Coag (PPP) [Time] 35.3 s Critically high 9.0-11.6 [facility] Comment on above: Performed By: #### P T, PTT #### [facility] [address] [address] [address] Erasmo Smith PTTon 2022 aPTT Coag (Bld) [Time] 40.3 s Critically high 22.3-36.2 [facility] Comment on above: Performed By: #### P T, PTT #### [facility] [address] [address] [address] Erasmo Smith TROPONIN, HIGH SENSITIVITYon 2022 HSTROP 194.7 pg/mL Critically high 4.0-51.3 [facility] Comment on above: Result Comment: CUT- OFF POINTS HAVE BEEN ESTABLISHED BASED ON THE FOURTH UNIVERSAL DEFINITIONS OF MYOCARDIAL INFARCTION. THE UPPER REFERENCE LIMIT (URL) OF TROPONIN, DEFINED THE 99TH PERCENTILE OF cTnI DISTRIBUTION IN A REFERENCE POPULATION, HAS BEEN CONFIRMED THE DECISION THRESHOLD FOR MA DIAGNOSIS. Performed By: #### C MREP #### [facility] [address] [place], [place] [address] Dr. Erasmo Smith HSTROP 218.0 pg/mL Critically high 4.0-51.3 [facility] Comment on above: Result Comment: CUT- OFF POINTS HAVE BEEN ESTABLISHED BASED ON THE FOURTH UNIVERSAL DEFINITIONS OF MYOCARDIAL INFARCTION. THE UPPER REFERENCE LIMIT (URL) OF TROPONIN, DEFINED THE 99TH PERCENTILE OF cTnI DISTRIBUTION IN A REFERENCE POPULATION, HAS BEEN CONFIRMED THE DECISION THRESHOLD FOR MA DIAGNOSIS. Performed By: #### B WATERMELON HARVESTING SUPERVISOR #### [facility] [address] [place], [place] [address] Dr. Erasmo Smith XR CHEST 1 Von [...] ALSTON Date: 2022 14:18 Normal [facility] MAMM SCREEN 3D TOÑITO CADon 11-26-2022 MG MAMM SCREEN 3D TOÑITO CAD Patient: BREANN STARKS Exam Date: 11/26/2022 : 1945 Gender:F Ordering : DR LUISANA JOHNSON . Admission #: [id number] Family : Order #: [id number] CLICK HERE TO VIEW EXAM RADIOLOGY REPORT [...] No Treatments None Family Cancers None LOCATION: [facility] BREAST COMPOSITION: Heterogeneously dense,which may obscure small [...] Brown M.D. on 11/26/2022 at 14:13 Normal [facility] PROF 14(COMP METB)on 022 Albumin [Mass/Vol] 3.8 g/dL Normal 3.4-5.0 [facility] Comment on above: Performed By: #### C MREP #### [facility] [address] [place] [address] Dr. Erasmo Smith Albumin/Globulin [Mass ratio] 0.8 {ratio} Normal [facility] Comment on above: Performed By: #### C MREP #### [facility] [address] [place] [address] Dr. Erasmo Smith ALP [Catalytic activity/Vol] 102 U/L Normal 46-116 [facility] Comment on above: Performed By: #### C MREP #### [facility] [address] [place] [address] Dr. Erasmo Smith ALT [Catalytic activity/Vol] 47 U/L Normal 14-59 [facility] Comment on above: Performed By: #### C MREP #### [facility] [address] [address] [address] Erasmo Smith Anion gap [Moles/Vol] 12.5 mmol/L Normal [facility] Comment on above: Performed By: #### C MREP #### [facility] [address] [place] [address] Dr. Erasmo Smith AST [Catalytic activity/Vol] 36 U/L Normal 15-37 [facility] Comment on above: Performed By: #### C MREP #### [facility] [address] [address] [address] Erasmo Smith Bilirubin [Mass/Vol] 0.3 mg/dL Normal 0.2-1.0 [facility] Comment on above: Performed By: #### C MREP #### [facility] [address] [address] [address] Erasmo Smith Calcium [Mass/Vol] 8.9 mg/dL Normal 8.5-10.1 [facility] Comment on above: Performed By: #### C MREP #### [facility] [address] [address] [address] Erasmo Smith Chloride [Moles/Vol] 106 mmol/L Normal 98-107 [facility] Comment on above: Performed By: #### C MREP #### [facility] [address] [place] [address] Dr. Erasmo Smith CO2 [Moles/Vol] 26.9 mmol/L Normal 21.0-32.0 [facility] Comment on above: Performed By: #### C MREP #### [facility] [address] [place] [address] Dr. Erasmo Smith Creatinine [Mass/Vol] 0.79 mg/dL Normal 0.55-1.02 [facility] Comment on above: Performed By: #### C MREP #### [facility] [address] [place] [address] Dr. Erasmo Smith EGFR-AF TANZANIAN >60 Normal >=60 [facility] Comment on above: Performed By: #### C MREP #### [facility] [address] [place] [address] Dr. Erasmo Smith EGFR-NON AF TANZANIAN >60 Normal >=60 [facility] Comment on above: Performed By: #### C MREP #### [facility] [address] [place] [address] Dr. Erasmo Smith Globulin (S) [Mass/Vol] 4.6 g/dL Normal [facility] Comment on above: Performed By: #### C MREP #### [facility] [address] [address] [address] Erasmo Smith Glucose [Mass/Vol] 102 mg/dL Normal 74-106 [facility] Comment on above: Performed By: #### C MREP #### [facility] [address] [address] [address] Erasmo Smith Potassium [Moles/Vol] 4.4 mmol/L Normal 3.5-5.1 [facility] Comment on above: Performed By: #### C MREP #### [facility] [address] [place] [address] Dr. Erasmo Smith Protein [Mass/Vol] 8.4 g/dL Critically high 6.4-8.2 [facility] Comment on above: Performed By: #### C MREP #### [facility] [address] [place] [address] Dr. Erasmo Smith Sodium [Moles/Vol] 141 mmol/L Normal 136-145 [facility] Comment on above: Performed By: #### C MREP #### [facility] [address] [place] [address] Dr. Erasmo Smith Urea nitrogen [Mass/Vol] 28.0 mg/dL Critically high 7.0-18.0 [facility] Comment on above: Performed By: #### C MREP #### [facility] [address] [place] [address] Dr. Erasmo Smith Urea nitrogen/Creatinine [Mass ratio] 35.4 mg/mg Normal [facility] Comment on above: Performed By: #### C MREP #### [facility] [address] [place] [address] Dr. Erasmo Smith CBC AUTO DIFFon 07-12-2022 BASO # 0.1 103/ul Normal 0.0-0.1 [facility] Comment on above: Performed By: #### B WATERMELON HARVESTING SUPERVISOR #### [facility] [address] [place] [address] Dr. Erasmo Smith Basophils/100 WBC (Bld) 0.5 % Normal 0.2-2.0 [facility] Comment on above: Performed By: #### B WATERMELON HARVESTING SUPERVISOR #### [facility] [address] [place] [address] Dr. Erasmo Smith EO # 0.2 103/ul Normal 0.0-0.7 [facility] Comment on above: Performed By: #### B WATERMELON HARVESTING SUPERVISOR #### [facility] [address] [place] [address] Dr. Erasmo Smith Eosinophils/100 WBC (Bld) 2.5 % Normal 0.9-7.0 [facility] Comment on above: Performed By: #### B WATERMELON HARVESTING SUPERVISOR #### [facility] [address] [place] [address] Dr. Erasmo Smith Erythrocyte distribution width (RBC) [Ratio] 17.2 % Critically high 11.0-15.0 [facility] Comment on above: Performed By: #### B WATERMELON HARVESTING SUPERVISOR #### [facility] [address] [place] [address] Dr. Erasmo Smith Hematocrit (Bld) [Volume fraction] 35.0 % Critically low 36.0-48.0 [facility] Comment on above: Performed By: #### B WATERMELON HARVESTING SUPERVISOR #### [facility] [address] [place] [address] Dr. Erasmo Smith Hemoglobin (Bld) [Mass/Vol] 11.3 g/dL Critically low 12.0-16.0 [facility] Comment on above: Performed By: #### B WATERMELON HARVESTING SUPERVISOR #### [facility] [address] [place] [address] Dr. Erasmo Smith IG # 0.02 10e3/ul Normal 0.00-0.03 [facility] Comment on above: Performed By: #### B [employer] HARVESTING SUPERVISOR #### [facility] [address] [place] [address] Dr. Erasmo Smith IG % 0.2 % Normal 0.0-0.5 [facility] Comment on above: Performed By: #### B [employer] HARVESTING SUPERVISOR #### [facility] [address] [place] [address] Dr. Erasmo Smith LYMPH # 2.3 103/ul Normal 1.2-3.8 [facility] Comment on above: Performed By: #### B [employer] HAR[employer]STING SUPERVISOR #### [facility] [address] [address] [address] Erasmo Smith Lymphocytes/100 WBC (Bld) 25.4 % Normal 20.5-60.0 [facility] Comment on above: Performed By: #### B [employer] HARVESTING SUPERVISOR #### [facility] [address] [place] [address] Dr. Erasmo Smith MANUAL DIFF REQ NO Normal [facility] Comment on above: Performed By: #### B [employer] HARVESTING SUPERVISOR #### [facility] [address] [place] [address] Dr. Erasmo Smith MCH (RBC) [Entitic mass] 25.5 pg Critically low 26.7-34.0 [facility] Comment on above: Performed By: #### B [employer] HARVESTING SUPERVISOR #### [facility] [address] [place] [address] Dr. Erasmo Smith MCHC (RBC) [Mass/Vol] 32.3 g/dL Normal 29.9-35.2 [facility] Comment on above: Performed By: #### B W[employer] HARVESTING SUPERVISOR #### [facility] [address] [place] [address] Dr. Erasmo Smith MCV (RBC) [Entitic vol] 78.8 fL Critically low 81.0-99.0 [facility] Comment on above: Performed By: #### B W[employer] HARVESTING SUPERVISOR #### [facility] [address] [place] [address] Dr. Erasmo Smith MONO # 0.7 103/ul Normal 0.3-0.8 [facility] Comment on above: Performed By: #### B W[employer] HARVESTING SUPERVISOR #### [facility] [address] [place] [address] Dr. Erasmo Smith Monocytes/100 WBC (Bld) 7.5 % Normal 1.7-12.0 [facility] Comment on above: Performed By: #### B [employer] HARVESTING SUPERVISOR #### [facility] [address] [place] [address] Dr. Erasmo Smith NEUT # 5.9 103/ul Normal 1.4-6.5 [facility] Comment on above: Performed By: #### B W[employer] HARVESTING SUPERVISOR #### [facility] [address] [address] [address] Erasmo Smith Neutrophils/100 WBC (Bld) 63.9 % Normal 43.0-75.0 [facility] Comment on above: Performed By: #### B W[employer] HARVESTING SUPERVISOR #### [facility] [address] [address] [address] Erasmo Smith Platelet mean volume (Bld) [Entitic vol] 9.0 fL Critically low 9.5-13.5 [facility] Comment on above: Performed By: #### B W[employer] HARVESTING SUPERVISOR #### [facility] [address] [address] [address] Erasmo Smith PLT 305 103/ul Normal 150-450 [facility] Comment on above: Performed By: #### B W[employer] HARVESTING SUPERVISOR #### [facility] [address] [place] [address] Dr. Erasmo Smith RBC 4.44 106/ul Normal 4.20-5.40 [facility] Comment on above: Performed By: #### B W[employer]MEL[employer] HARVESTING SUPERVISOR #### [facility] [address] [address] [address] Erasmo Smith WBC 9.2 103/ul Normal 4.0-11.0 [facility] Comment on above: Performed By: #### B WATERM[employer] HARVESTING SUPERVISOR #### [facility] [address] [place] [address] CHEST WO CONon [...] PAULA BROWN Date: 2022-05-27 15:27 Normal [facility] HEMOGLOBINon 04-20-2022 Hemoglobin (Bld) [Mass/Vol] 10.6 g/dL Critically low 12.0-16.0 [facility] Comment on above: Performed By: #### H GB ####[facility] [id number] [address]Dr. Erasmo Smith CULTURE SPUTUMon 04-02-2022 CULTURE SPUTUM Isolate 1 Pseudomonas aeruginosa Light growth of ORGANISM 1 Pseudomonas aeruginosa ANTIBIOTIC M.I.C RX STATUS Piperacillin/Tazobacta m 8 S F Ceftazidime 2 S F Imipenem 1 S F Amikacin <=2 S F Gentamicin <=1 S F Tobramycin <=1 S F Ciprofloxacin <=0.25 S F Levofloxacin 0.25 S F Normal [facility] Comment on above: Performed By: #### S PUTCX ####[facility] [id number] [address]Dr. Erasmo Smith CYTOLOGYon 03-30-2022 SENT TO REF LAB 03/31/22 Normal [facility] Comment on above: Performed By: #### C YTO #### [facility] [address] [place] [address] Dr. Erasmo Smith SPUTUM GRAM STAINon 03-30-20 22 COMMENTS Normal [facility] Comment on above: Performed By: #### B W[employer] HARVESTING SUPERVISOR #### [facility] [address] [address] [address] Erasmo Smith DIPHTHEROIDS Normal [facility] Comment on above: Performed By: #### B W[employer] HARVESTING SUPERVISOR #### [facility] [address] [address] [address] Erasmo Smith EPITHELIALS <25 Normal [facility] Comment on above: Performed By: #### B W[employer] HARVESTING SUPERVISOR #### [facility] [address] [address] [address] Erasmo Smith FUNGAL ELEMENTS Normal [facility] Comment on above: Performed By: #### B W[employer] HARVESTING SUPERVISOR #### [facility] [address] [address] [address] Erasmo CINTRON NEG BACILLI FEW Normal The [facility] Comment on above: Performed By: #### B W[employer] HARVESTING SUPERVISOR #### [facility] [address] [address] [address] Erasmo CINTRON NEG DIPPLOCOCCI Normal [facility] Comment on above: Performed By: #### B WATERMEL[employer] HARVESTING SUPERVISOR #### [facility] [address] [address] [address] Erasmo CINTRON POS BACILLI Normal [facility] Comment on above: Performed By: #### B WATERMEL[employer] HARVESTING SUPERVISOR #### [facility] [address] [address] [address] Erasmo Smith GRAM POSITIVE COCCI MANY Normal The [facility] Comment on above: Performed By: #### B W[employer] HARVESTING SUPERVISOR #### [facility] [address] [address] [address] Erasmo Smith WBC (Bld) [#/Vol] 10*3/uL Normal [facility] Comment on above: Performed By: #### B W[employer]MEL[employer] HARVESTING SUPERVISOR #### [facility] [address] [address] [address] Erasmo Smith SPUTUM CULTUREon 03-01-2022 Epithelial cells LM Ql (Urine sed) Few Normal [facility] Comment on above: Performed By: #### C XSPTUM ####[facility] [address] [place], [place] [address]Dr. Erasmo Smith Gram Stain Evaluation Comment Normal [facility] Comment on above: Result Comment: This specimen is of good quality and is acceptable for routine bacterial culture. Performed By: #### C XSPTUM ####[facility] [address] [address]Dr. Erasmo Smith Lower Respiratory Culture Final report Normal [facility] Comment on above: Performed By: #### C XSPTUM ####[facility] [address] [address]Dr. Erasmo Smith Result 1 Comment Normal [facility] Comment on above: Result Comment: Few gram positive cocci Performed By: #### C XSPTUM ####[facility] [id number] [address]Dr. Erasmo Smith Result Comment: Rout ine respiratory adria Result 2 Normal [facility] Comment on above: Performed By: #### C XSPTUM ####[facility] [id number] [address]Dr. Erasmo Smith Result 3 Normal [facility] Comment on above: Performed By: #### C XSPTUM ####[facility] [address] [address]Dr. Erasmo Smith Result 4 Normal [facility] Comment on above: Performed By: #### C XSPTUM ####[facility] [address] [place], [place] [address]Dr. Erasmo Smith White Blood Cells Few Normal [facility] Comment on above: Performed By: #### C XSPTUM ####[facility] [address] [place], [place] [address]Dr. Erasmo Smith BNPon 02-24-2022 Natriuretic peptide B (Bld) [Mass/Vol] 319.0 pg/mL Normal <=900.0 [facility] Comment on above: Performed By: #### B W[employer] HARVESTING SUPERVISOR #### [facility] [address] [place] [address] Dr. Erasmo Smith CBC AUTO DIFFon 02-24-2022 BASO # 0.1 103/ul Normal 0.0-0.1 [facility] Comment on above: Performed By: #### C MREP #### [facility] [address] [place] [address] Dr. Erasmo Smith Basophils/100 WBC (Bld) 0.5 % Normal 0.2-2.0 [facility] Comment on above: Performed By: #### C MREP #### [facility] [address] [place] [address] Dr. Erasmo Smith EO # 0.3 103/ul Normal 0.0-0.7 [facility] Comment on above: Performed By: #### C MREP #### [facility] [address] [place] [address] Dr. Erasmo Smith Eosinophils/100 WBC (Bld) 3.1 % Normal 0.9-7.0 [facility] Comment on above: Performed By: #### C MREP #### [facility] [address] [place] [address] Dr. Erasmo Smith Erythrocyte distribution width (RBC) [Ratio] 15.1 % Critically high 11.0-15.0 [facility] Comment on above: Performed By: #### C MREP #### [facility] [address] [place] [address] Dr. Erasmo Smith Hematocrit (Bld) [Volume fraction] 33.9 % Critically low 36.0-48.0 [facility] Comment on above: Performed By: #### C MREP #### [facility] [address] [place] [address] Dr. Erasmo Smith Hemoglobin (Bld) [Mass/Vol] 10.7 g/dL Critically low 12.0-16.0 [facility] Comment on above: Performed By: #### C MREP #### [facility] [address] [place] [address] Dr. Erasmo Smith IG # 0.03 10e3/ul Normal 0.00-0.03 [facility] Comment on above: Performed By: #### C MREP #### [facility] [address] [place] [address] Dr. Erasmo Smith IG % 0.3 % Normal 0.0-0.5 [facility] Comment on above: Performed By: #### C MREP #### [facility] [address] [place] [address] Dr. Erasmo Smith LYMPH # 2.8 103/ul Normal 1.2-3.8 [facility] Comment on above: Performed By: #### C MREP #### [facility] [address] [place] [address] Dr. Erasmo Smith Lymphocytes/100 WBC (Bld) 30.6 % Normal 20.5-60.0 [facility] Comment on above: Performed By: #### C MREP #### [facility] [address] [address] [address] Erasmo Smith MANUAL DIFF REQ NO Normal [facility] Comment on above: Performed By: #### C MREP #### [facility] [address] [place] [address] Dr. Erasmo Smith MCH (RBC) [Entitic mass] 26.9 pg Normal 26.7-34.0 [facility] Comment on above: Performed By: #### C MREP #### [facility] [address] [place] [address] Dr. Erasmo Smith MCHC (RBC) [Mass/Vol] 31.6 g/dL Normal 29.9-35.2 [facility] Comment on above: Performed By: #### C MREP #### [facility] [address] [place] [address] Dr. Erasmo Smith MCV (RBC) [Entitic vol] 85.2 fL Normal 81.0-99.0 [facility] Comment on above: Performed By: #### C MREP #### [facility] [address] [place] [address] Dr. Erasmo Smith MONO # 0.7 103/ul Normal 0.3-0.8 [facility] Comment on above: Performed By: #### C MREP #### [facility] [address] [place] [address] Dr. Erasmo Smith Monocytes/100 WBC (Bld) 7.9 % Normal 1.7-12.0 [facility] Comment on above: Performed By: #### C MREP #### [facility] [address] [place] [address] Dr. Erasmo Smith NEUT # 5.3 103/ul Normal 1.4-6.5 [facility] Comment on above: Performed By: #### C MREP #### [facility] [address] [place] [address] Dr. Erasmo Smith Neutrophils/100 WBC (Bld) 57.6 % Normal 43.0-75.0 [facility] Comment on above: Performed By: #### C MREP #### [facility] [address] [place], [place] [address] Dr. Erasmo Smith Platelet mean volume (Bld) [Entitic vol] 9.0 fL Critically low 9.5-13.5 [facility] Comment on above: Performed By: #### C MREP #### [facility] [address] [address] [address] Erasmo Smith PLT 249 103/ul Normal 150-450 [facility] Comment on above: Performed By: #### C MREP #### [facility] [id number] Erasmo Smith RBC 3.98 106/ul Critically low 4.20-5.40 [facility] Comment on above: Performed By: #### C MREP #### [facility] [address] [address] [address] Erasmo Smith WBC 9.1 103/ul Normal 4.0-11.0 [facility] Comment on above: Performed By: #### C MREP #### [facility] [address] [address] [address] Erasmo Smith CTA CHEST WO W [...] by: PAULA BROWN Date: 2022-02-24 18:24 Normal [facility] D-DIMERon 02-24-2022 D-DIMER 1.36 mg/L FEU Critically high <=0.59 [facility] Comment on above: Performed By: #### D DIM #### [facility] [address] [place] [address] Dr. Erasmo Smith D-DIMER COMMENTS SEE BELOW Normal [facility] Comment on above: Result Comment: Incr eases [...] hospitalization. Performed By: #### D DIM #### [facility] [address] [place] [address] Dr. Erasmo Smith PROF 14(COMP METB)on 022 Albumin [Mass/Vol] 3.6 g/dL Normal 3.4-5.0 [facility] Comment on above: Performed By: #### C MREP #### [facility] [address] [place] [address] Dr. Erasmo Smith Albumin/Globulin [Mass ratio] 0.8 {ratio} Normal [facility] Comment on above: Performed By: #### C MREP #### [facility] [address] [place] [address] Dr. Erasmo Smith ALP [Catalytic activity/Vol] 95 U/L Normal 46-116 [facility] Comment on above: Performed By: #### C MREP #### [facility] [address] [address] [address] Erasmo Smith ALT [Catalytic activity/Vol] 45 U/L Normal 14-59 [facility] Comment on above: Performed By: #### C MREP #### [facility] [address] [address] [address] Erasmo Smith Anion gap [Moles/Vol] 15.9 mmol/L Normal [facility] Comment on above: Performed By: #### C MREP #### [facility] [address] [address] [address] Erasmo Smith AST [Catalytic activity/Vol] 33 U/L Normal 15-37 [facility] Comment on above: Performed By: #### C MREP #### [facility] [address] [place] [address] Dr. Erasmo Smith Bilirubin [Mass/Vol] 0.5 mg/dL Normal 0.2-1.0 [facility] Comment on above: Performed By: #### C MREP #### [facility] [address] [address] [address] Erasmo Smith Calcium [Mass/Vol] 9.1 mg/dL Normal 8.5-10.1 [facility] Comment on above: Performed By: #### C MREP #### [facility] [address] [place] [address] Dr. Erasmo Smith Chloride [Moles/Vol] 103 mmol/L Normal 98-107 [facility] Comment on above: Performed By: #### C MREP #### [facility] [address] [address] [address] Erasmo Smith CO2 [Moles/Vol] 25.1 mmol/L Normal 21.0-32.0 [facility] Comment on above: Performed By: #### C MREP #### [facility] [address] [address] [address] Erasmo Smith Creatinine [Mass/Vol] 0.77 mg/dL Normal 0.55-1.02 [facility] Comment on above: Performed By: #### C MREP #### [facility] [address] [address] [address] Erasmo Smith EGFR-AF TANZANIAN >60 Normal >=60 [facility] Comment on above: Performed By: #### C MREP #### [facility] [address] [address] [address] Erasmo Smith EGFR-NON AF TANZANIAN >60 Normal >=60 [facility] Comment on above: Performed By: #### C MREP #### [facility] [address] [address] [address] Erasmo Smith Globulin (S) [Mass/Vol] 4.3 g/dL Normal [facility] Comment on above: Performed By: #### C MREP #### [facility] [address] [place] [address] Dr. Erasmo Smith Glucose [Mass/Vol] 92 mg/dL Normal 74-106 [facility] Comment on above: Performed By: #### C MREP #### [facility] [address] [place] [address] Dr. Erasmo Smith Potassium [Moles/Vol] 4.0 mmol/L Normal 3.5-5.1 [facility] Comment on above: Performed By: #### C MREP #### [facility] [address] [place] [address] Dr. Erasmo Smith Protein [Mass/Vol] 7.9 g/dL Normal 6.4-8.2 [facility] Comment on above: Performed By: #### C MREP #### [facility] [address] [address] [address] Erasmo Smith Sodium [Moles/Vol] 140 mmol/L Normal 136-145 [facility] Comment on above: Performed By: #### C MREP #### [facility] [address] [address] [address] Erasmo Smith Urea nitrogen [Mass/Vol] 17.0 mg/dL Normal 7.0-18.0 [facility] Comment on above: Performed By: #### C MREP #### [facility] [address] [address] [address] Erasmo Smith Urea nitrogen/Creatinine [Mass ratio] 22.1 mg/mg Normal [facility] Comment on above: Performed By: #### C MREP #### [facility] [address] [address] [address] Erasmo Smith PROTIMEon 02-24-2022 INR Coag (PPP) [Relative time] 2.28 {INR} Normal [facility] Comment on above: Performed By: #### P T, PTT ####[facility] [address] [address]Dr. Erasmo Smith INR GUIDELINES SEE BELOW Normal [facility] Comment on above: Result Comment: ABNER RED INR: 2.0 - 3.0 CONDITIONS NOT LISTED BELOW 2.5 - 3.5 FOR PROSTHETIC HEART VALVE REPLACEMENT 2.5 - 3.5 RECURRENT THROMBOSIS Performed By: #### P T, PTT ####[facility] [address] [address]Dr. Erasmo Smith PT Coag (PPP) [Time] 23.3 s Critically high 9.0-11.6 [facility] Comment on above: Performed By: #### P T, PTT ####[facility] [address] [address]Dr. Erasmo Smith PTTon 02-24-2022 aPTT Coag (Bld) [Time] 34.7 s Normal 22.3-36.2 [facility] Comment on above: Performed By: #### P T, PTT ####[facility] [id number] [address]Dr. Erasmo Smith TROPONIN, HIGH SENSITIVITYon 02-24-2022 HSTROP 6.6 pg/mL Normal 4.0-51.3 [facility] Comment on above: Result Comment: CUT- OFF POINTS HAVE BEEN ESTABLISHED BASED ON THE FOURTH UNIVERSAL DEFINITIONS OF MYOCARDIAL INFARCTION. THE UPPER REFERENCE LIMIT (URL) OF TROPONIN, DEFINED THE 99TH PERCENTILE OF cTnI DISTRIBUTION IN A REFERENCE POPULATION, HAS BEEN CONFIRMED THE DECISION THRESHOLD FOR MA DIAGNOSIS. Performed By: #### C MREP #### [facility] [address] [place] [address] Dr. Erasmo Smith PROTHROMBIN TIMEon INR Coag (PPP) [Relative time] 1.2 {INR} High 0.86-1.16 [facility] Comment on above: Result Comment: INR Theraputic Range: 2.0-3.5 Performed at [facility] [address] [facility] [address] PT Coag (PPP) [Time] 12.7 s Normal 9.3-12.7 [facility] ANTICOAGULANT COUMADIN Normal [facility] Vital Signs Date Time Vital Sign Value Performing Clinician Sophie litjoby 05-03-2025 13:49-0400 Body height 149.86 cm Renny Hansen II Work Phone: [facility] 05-03-2025 13:49-0400 Body mass index (BMI) [Ratio] 45 kg/m2 Renny Hansen II Work Phone: [facility] 05-03-2025 13:49-0400 Body temperature 97.8 [degF] Renny Hansen II Work Phone: [facility] 05-03-2025 13:49-0400 Body weight 101.15 kg Renny Hansen II Work Phone: [facility] 05-03-2025 13:49-0400 Diastolic blood pressure 73 mm[Hg] Renny Hansen II Work Phone: [facility] 05-03-2025 13:49-0400 Heart rate 59 /min Renny Hansen II Work Phone: [facility] 05-03-2025 13:49-0400 Respiratory rate 16 /min Renny Hansen II Work Phone: [facility] 05-03-2025 13:49-0400 SaO2% (BldA) [Mass fraction] 98 % Renny Hansen II Work Phone: [facility] 05-03-2025 13:49-0400 Systolic blood pressure 134 mm[Hg] Renny Hansen II Work Phone: [facility] 04-24-2025 09:41-0400 Body height 144.8 cm Shannon Russo [employer]STING SUPERVISOR Work Phone: [facility] 04-24-2025 09:41-0400 Body mass index (BMI) [Ratio] 48.91 kg/m2 Shannon Rusos [employer]STING SUPERVISOR Work Phone: [facility] 04-24-2025 09:41-0400 Body weight 102.51 kg Shannon Russo [employer]STING SUPERVISOR Work Phone: [facility] 04-24-2025 09:41-0400 Diastolic blood pressure 68 mm[Hg] Shannon Russo [employer]STING SUPERVISOR Work Phone: [facility] 04-24-2025 09:41-0400 Heart rate 81 /min Shannon Russo [employer]STING SUPERVISOR Work Phone: [facility] 04-24-2025 09:41-0400 Respiratory rate 17 /min Shannon Russo [employer]STING SUPERVISOR Work Phone: [facility] 04-24-2025 09:41-0400 SaO2% (BldA) [Mass fraction] 97 % Shannon Russo [employer]STING SUPERVISOR Work Phone: [facility] 04-24-2025 09:41-0400 Systolic blood pressure 138 mm[Hg] Shannon Russo [employer] SUPERVISOR Work Phone: [facility] 04-18-2025 11:04-0400 Body height 175.3 cm Eleanor Herbmer PA Work Phone: [facility] 04-18-2025 11:04-0400 Body mass index (BMI) [Ratio] 33.34 kg/m2 Eleanor Hemmer PA Work Phone: [facility] 04-18-2025 11:04-0400 Body weight 102.42 kg Eleanor Hemmer PA Work Phone: [facility] 04-18-2025 11:04-0400 Diastolic blood pressure 68 mm[Hg] Eleanor Hemmer PA Work Phone: [facility] 04-18-2025 11:04-0400 Heart rate 71 /min Eleanor Hemmer PA Work Phone: [facility] 04-18-2025 11:04-0400 Respiratory rate 16 /min Eleanor Dumont PA Work Phone: [facility] 04-18-2025 11:04-0400 SaO2% (BldA) [Mass fraction] 96 % Eleanor Dumont PA Work Phone: [facility] 04-18-2025 11:04-0400 Systolic blood pressure 122 mm[Hg] Eleanor Dumont PA Work Phone: [facility] 02-18-2025 11:38-0400 Body height 149.9 cm Renny Hansen MD Work Phone: [facility] 02-18-2025 11:38-0400 Body mass index (BMI) [Ratio] 45.04 kg/m2 Renny Hansen MD Work Phone: [facility] 02-18-2025 11:38-0400 Body weight 101.15 kg Renny Hansen MD Work Phone: [facility] 02-18-2025 11:38-0400 Diastolic blood pressure 72 mm[Hg] Renny Hansen MD Work Phone: [facility] 02-18-2025 11:38-0400 Heart rate 61 /min Renny Hansen MD Work Phone: [facility] 02-18-2025 11:38-0400 Respiratory rate 16 /min Renny Hansen MD Work Phone: [facility] 02-18-2025 11:38-0400 SaO2% (BldA) [Mass fraction] 96 % Renny Hansen MD Work Phone: [facility] 02-18-2025 11:38-0400 Systolic blood pressure 128 mm[Hg] Renny Hansen MD Work Phone: [facility] 12-17-2024 10:58-0400 Body height 149.9 cm [...] 98.42 kg Renny Hansen II Work Phone: [facility] 10-29-2024 14:47-0500 Diastolic blood pressure 65 mm[Hg] Renny Hansen II Work Phone: [facility] 10-29-2024 14:47-0500 Heart rate 66 /min Renny Hansen II Work Phone: [facility] 10-29-2024 14:47-0500 Respiratory rate 20 /min Renny Hansen II Work Phone: [facility] 10-29-2024 14:47-0500 SaO2% (BldA) [Mass fraction] 97 % Renny Hansen II Work Phone: [facility] 10-29-2024 14:47-0500 Systolic blood pressure 150 mm[Hg] Renny Hansen II Work Phone: [facility] 10-17-2024 11:35-0500 Body height 149.9 [...] 149.9 cm Dmitriy Isidrafay DO Work Phone: [facility] 10-04-2024 14:56-0500 Body mass index (BMI) [Ratio] 45.04 kg/m2 Dmitriy Laffay DO Work Phone: [facility] 10-04-2024 14:56-0500 Body weight 101.15 kg Dmitriy Laffay DO Work Phone: [facility] 10-04-2024 14:56-0500 Diastolic blood pressure 70 mm[Hg] Dmitriy Laffay DO Work Phone: [facility] 10-04-2024 14:56-0500 Systolic blood pressure 120 mm[Hg] Dmitriy Laffay DO Work Phone: [facility] 09-25-2024 11:13-0500 Body height 149.86 cm Renny Hansen II Work Phone: [facility] 09-25-2024 11:13-0500 Body mass index (BMI) [Ratio] 44.6 kg/m2 Renny Hansen II Work Phone: [facility] 09-25-2024 11:13-0500 Body temperature 97.3 [degF] Renny Hansen II Work Phone: [facility] 09-25-2024 11:13-0500 Body weight 100.24 kg Renny Hansen II Work Phone: [facility] 09-25-2024 11:13-0500 Diastolic blood pressure 69 mm[Hg] Renny Hansen II Work Phone: [facility] 09-25-2024 11:13-0500 Heart rate 72 /min Renny Hansen II Work Phone: [facility] 09-25-2024 11:13-0500 Respiratory rate 16 /min Renny Hansen II Work Phone: [facility] 09-25-2024 11:13-0500 SaO2% (BldA) [Mass fraction] 98 % Renny Hansen II Work Phone: [facility] 09-25-2024 11:13-0500 Systolic blood pressure 173 mm[Hg] Renny Hansen II Work Phone: [facility] 09-19-2024 15:12-0500 Body height 149.9 cm Luisana Leal [employer] SUPERVISOR Work Phone: [facility] 09-19-2024 15:12-0500 Body mass index (BMI) [Ratio] 44.07 kg/m2 Luisana Leal [employer] SUPERVISOR Work Phone: [facility] 09-19-2024 15:12-0500 Body weight 98.97 kg Luisana Leal [employer]ING SUPERVISOR Work Phone: [facility] 09-19-2024 15:12-0500 Diastolic blood pressure 68 mm[Hg] Luisana Leal [employer] SUPERVISOR Work Phone: [facility] 09-19-2024 15:12-0500 Heart rate 63 /min Luisana Leal [employer]ING SUPERVISOR Work Phone: [facility] 09-19-2024 15:12-0500 Respiratory rate 18 /min Luisana Leal [employer]ING SUPERVISOR Work Phone: [facility] 09-19-2024 15:12-0500 SaO2% (BldA) [Mass fraction] 95 % Luisana Leal [employer] SUPERVISOR Work Phone: [facility] 09-19-2024 15:12-0500 Systolic blood pressure 128 mm[Hg] Luisana Leal [employer] SUPERVISOR Work Phone: [facility] 09-18-2024 10:09-0500 Body mass index (BMI) [Ratio] 43.83 kg/m2 Christopher Jose Roberto DO Work Phone: [facility] [...] % Christopher Jose Roberto DO Work Phone: [facility] 09-18-2024 10:09-0500 Systolic blood pressure 136 mm[Hg] Christopher Jose Roberto DO Work Phone: [facility] 09-10-2024 13:00-0500 Body temperature 97.2 [degF] Renny Hansen II Work Phone: [facility] 09-10-2024 13:00-0500 Diastolic blood pressure 67 mm[Hg] Renny Hansen II Work Phone: [facility] 09-10-2024 13:00-0500 Heart rate 72 /min Renny Hansen II Work Phone: [facility] 09-10-2024 13:00-0500 Respiratory rate 19 /min Renny Hansen II Work Phone: [facility] 09-10-2024 13:00-0500 SaO2% (BldA) [Mass fraction] 96 % Renny Hansen II Work Phone: [facility] 09-10-2024 13:00-0500 Systolic blood pressure 157 mm[Hg] Renny Hansen II Work Phone: [facility] 08-24-2024 13:00-0500 Body height 149.86 cm Renny Hansen II Work Phone: [facility] 08-24-2024 13:00-0500 Body mass index (BMI) [Ratio] 45.4 kg/m2 Renny Hansen II Work Phone: [facility] 08-24-2024 13:00-0500 Body temperature 97.8 [degF] Renny Hansen II Work Phone: [facility] 08-24-2024 13:00-0500 Body weight 102.05 kg Renny Hansen II Work Phone: [facility] 08-24-2024 13:00-0500 Diastolic blood pressure 69 mm[Hg] Renny Hansne II Work Phone: [facility] 08-24-2024 13:00-0500 Heart rate 61 /min Renny Hansen II Work Phone: [facility] 08-24-2024 13:00-0500 Respiratory rate 16 /min Renny Hansen II Work Phone: [facility] 08-24-2024 13:00-0500 SaO2% (BldA) [Mass fraction] 98 % Renny Hansen II Work Phone: [facility] 08-24-2024 13:00-0500 Systolic blood pressure 137 mm[Hg] Renny Hansen II Work Phone: [facility] 08-16-2024 10:33-0500 Body height 149.9 cm Renny Hansen MD Work Phone: [facility] 08-16-2024 10:33-0500 Body mass index (BMI) [Ratio] 44.23 kg/m2 Renny Hansne MD Work Phone: [facility] 08-16-2024 [...] 124 mm[Hg] Eleanor Hemmer PA Work Phone: [facility] 07-05-2024 08:50-0400 [...] 08:50-0400 SaO2% (BldA) [Mass fraction] 96 % Renyn Hansen MD Work Phone: [facility] 07-05-2024 08:50-0400 Systolic blood pressure 130 mm[Hg] Renny Hansen MD Work Phone: [facility] 05-31-2024 13:46-0400 Body height 149.9 cm Monster Calvillo [employer]PER[employer]OR Work Phone: [facility] 05-31-2024 13:46-0400 Body mass index (BMI) [Ratio] 47.87 kg/m2 Monster Calvillo [employer] SUPERVISOR Work Phone: [facility] 05-31-2024 13:46-0400 Body temperature 98.4 [degF] Monster Calvillo [employer] SUPERVISOR Work Phone: [facility] 05-31-2024 13:46-0400 Body weight 107.5 kg Monster Calvillo [employer] SUPERVISOR Work Phone: [facility] 05-31-2024 13:46-0400 Diastolic blood pressure 80 mm[Hg] Monster Calvillo [employer] SUPERVISOR Work Phone: [facility] 05-31-2024 13:46-0400 Heart rate 73 /min Monster Calvillo [employer] SUPER[employer]OR Work Phone: [facility] 05-31-2024 13:46-0400 SaO2% (BldA) [Mass fraction] 95 % Monster Calvillo [employer] SUPERVISOR Work Phone: [facility] 05-31-2024 13:46-0400 Systolic blood pressure 140 mm[Hg] Monster Calvillo [employer] SUPERVISOR Work Phone: [facility] 05-22-2024 13:17-0400 Body height 149.9 cm Boo Buchanan PA-C Work Phone: [facility] 05-22-2024 13:17-0400 Body mass index (BMI) [Ratio] 44.43 kg/m2 Boo Buchanan PA-C Work Phone: [facility] 05-22-2024 13:17-0400 Body weight 99.79 kg Boo Buchanan PA-C Work Phone: [facility] 03-02-2024 11:51-0400 Blood Pressure Location Jair PARKL [facility] 03-02-2024 11:51-0400 Diastolic blood pressure 75 mm[Hg] Jair NILL [facility] 03-02-2024 11:51-0400 Heart rate 71 /min Jair NILL [facility] 03-02-2024 11:51-0400 Respiratory rate 16 /min Jair NILL [facility] 03-02-2024 11:51-0400 Systolic blood pressure 118 mm[Hg] Jair NILL [facility] 10-07-2021 16:00-0500 Body height 146.69 cm Hong Nev[facility] [employer] Other 10-07-2021 16:00-0500 Body mass index (BMI) [Ratio] 51.01 kg/m2 Hong Nevarez Other [facility] Other 10-07-2021 16:00-0500 Body weight 109.77 kg Hong Geri Other [facility] Other 08-26-2021 15:15-0500 Body height 146.69 cm Hong Jimenezkes Other [facility] Other 08-26-2021 15:15-0500 Body mass index (BMI) [Ratio] 51.07 kg/m2 Hong Jimenezkes Other [facility] Other 08-26-2021 15:15-0500 Body weight 109.91 kg Hong Nevarez Other [facility] [employer] Other Encounters Encounter Date Encounter Type Care Provider Facility Start: 05-27-2025 ambulatory Juan Ivan sheridan II Facility[facility] Start: 05-20-2025 End: 05-20-2025 ambulatory Miguel Murphy MD Facility:[facility] Start: 05-16-2025 End: 05-16-2025 Bamboo flowsheet Renny Hansen MD Work Phone: [facility] Start: 05-16-2025 End: 05-16-2025 Bamboo flowsdemond Hansen MD Work Phone: [facility] [facility] Start: 05-16-2025 End: 05-16-2025 ambulatory RENNY HANSEN Not Available Start: 05-15-2025 End: 05-15-2025 ambulatory JAIR FLORIAN [facility] Start: 05-03-2025 Registered Recurring Katharina López [employer] SU[employer]KER -[facility] Acute Work Phone: Start: 05-03-2025 End: 05-03-2025 ambulatory Renny Hansen II Work Phone: [facility] Work Phone: Start: 05-03-2025 End: 05-03-2025 Patient encounter procedure Emma Spears [employer]PERVISOR-C -[facility] Ambulatory Work Phone: Start: 04-24-2025 End: 04-24-2025 Bamboo flowsheet Shannon Russo [employer] SUPERVISOR Work Phone: [facility] [place] [facility] Start: 04-24-2025 End: 04-25-2025 Bamboo flowsheet Shannon Russo [employer] SUPERVISOR Work Phone: [facility] [place] [facility] Start: 04-24-2025 End: 04-24-2025 Clinisync Result Encounter Generic External Data Provider [facility] External Department Unsolicited Start: 04-24-2025 End: 04-25-2025 External Result Encounter Shannon Russo [employer]PER[employer]OR Work Phone: [facility] Unsolicited Start: 04-24-2025 End: 04-24-2025 Office outpatient visit 25 minutes Shannon Russo [employer] SUPERVISOR Work Phone: [facility] [facility] Comment on above: Hematuria, unspecifi ed type Start: 04-24-2025 End: 04-24-2025 ambulatory SHANNON RUSSO Not Available Start: 04-22-2025 End: 04-22-2025 ambulatory Miguel Murphy MD Facility:[facility] Start: 04-18-2025 End: 04-18-2025 Bamboo flowsheet Eleanor [...] DUMONT Not Available Start: 02-[facility]-20[facility] Start: 02-21-2025 End: 02-21-2025 Clinisync Result Encounter Generic External Data Provider [facility] External Department Unsolicited Start: 02-21-2025 End: 02-21-2025 Clinisync Result Encounter Generic External Data Provider [facility] External Department Unsolicited Start: 02-20-2025 End: 02-20-2025 ambulatory JAIR FLORIAN [facility] Start: 02-18-2025 End: 02-18-2025 Bamboo [...] 02-11-2025 End: 02-11-2025 ambulatory Miguel Murphy MD Facility:[facility] Start: 01-22-2025 End: 01-22-2025 ambulatory DMITRIY [facility] Start: 01-17-2025 End: 01-17-2025 [facility] Start: 01-01-2025 ambulatory [facility] Start: 12-24-2024 End: 12-24-2024 ambulatory [facility] Start: 12-21-2024 End: 12-21-2024 Clinisync [...] Murphy MD Facility:[facility] Start: 11-27-2024 ambulatory [facility] Start: 11-27-2024 ambulatory [facility] Start: 11-13-2024 End: 11-13-2024 ambulatory [facility] Start: 11-09-2024 End: 11-12-2024 Telephone encounter Jr. [...] Registered Recurring Renny batista II [facility] Work Phone: Start: 10-29-2024 End: 10-29-2024 ambulatory Renny Hansen II Work Phone: [facility] Work Phone: Start: 10-29-2024 End: 10-29-2024 Patient encounter procedure Renny Hansen II [facility] Work Phone: Start: 10-29-2024 End: 10-29-2024 ambulatory Miguel Murphy MD Facility:[facility] Start: 10-24-2024 End: 10-24-2024 Patient encounter procedure Renny Hansen GEOVANY Work Phone: [facility] [place] Work Phone: Start: 10-24-2024 End: 10-24-2024 ambulatory Renny Hansen II Work Phone: [facility] Work Phone: Start: 10-24-2024 End: 10-24-2024 Office outpatient visit 15 minutes Sakina Yamile Cardenas DO Work Phone: [facility] Comment on above: Injury of left shoul kathie and upper arm, sequela; Left shoulder pain, unspecified chronicity; 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, initial encounter ([facility]) Start: 10-24-2024 End: 10-24-2024 ambulatory SAKINA MARIO Not Available Start: 10-24-2024 End: 10-24-2024 Bamboo flowsheet Sakina Yamile Cardenas DO Work Phone: [facility] Start: 10-24-2024 End: 10-24-2024 Bamboo flowsheet Sakina Yamile Ronald DO Work Phone: [facility] Start: 10-24-2024 End: 10-24-2024 External Result Encounter Sakina Yamile Cardenas DO Work Phone: [facility] External Department [...] encounter procedure Renny Hansen II Work Phone: [facility]Ul[facility]ound Cn[facility] for [facility] Car Start: 10-16-2024 End: 10-16-2024 ambulatory Renny Hansen II Work Phone: [facility] Work Phone: Start: 10-09-2024 End: 10-09-2024 [...] End: 10-02-2024 External Result Encounter Katharina Toledo [employer]ING SUPERVISOR Work Phone: [facility] External Department Unsolicited Start: 10-02-2024 End: 10-02-2024 External Result Encounter Katharina Jaegerbrandy [employer]ING SUPERVISOR Work Phone: [facility] External Department Unsolicited Start: 10-02-2024 Registered Recurring Renny batista II Work Phone: [facility] Work Phone: Start: 09-25-2024 End: 09-25-2024 ambulatory Renny Hansen II Work Phone: [facility] Work Phone: Start: 09-25-2024 End: 09-25-2024 Patient encounter procedure Renny Hansen II Work Phone: [facility] Ambulatory Work Phone: Start: 09-24-2024 End: 09-24-2024 ambulatory [facility] Start: 09-19-2024 End: 09-19-2024 ambulatory LUISANA LEAL Not Available Start: 09-19-2024 End: 09-19-2024 Office outpatient visit 25 minutes Luisana Leal [employer]ING SUPERVISOR Work Phone: [facility] Comment on above: Acute cystitis with hematuria (Primary Dx); Burning with urination; Centrilobular emphysema (CMS/HCC); Morbid (severe) obesity due to excess calories (CMS/HCC); Body mass index (BMI) 40.0-44.9, adult (CMS/HCC); Chronic obstructive pulmonary disease, unspecified (CMS/HCC); Pulmonary hypertension, unspecified (CMS/HCC); Need for vaccination Start: 09-18-2024 End: 09-18-2024 Bamboo flowsheet Hayderopher Jose Roberto DO Work Phone: [facility] [address] [facility] Start: 09-18-2024 End: 09-18-2024 Bamboo flowsheet Christopher Jose Roberto DO Work Phone: [facility] Start: 09-18-2024 End: 09-18-2024 Office outpatient new 45 minutes Christopher Jose Roberto DO Work Phone: [facility] [...] 09-10-2024 End: 09-10-2024 ambulatory Miguel Murphy MD Facility:[facility] Start: 08-24-2024 End: 08-24-2024 Patient encounter procedure Renny Hansen II Work Phone: [facility] [place] Work Phone: Start: 08-24-2024 End: 08-24-2024 ambulatory Renny Hansen Facility[facility] Start: 08-24-2024 End: 08-24-2024 External Result Encounter Katharina Toledo [employer] SUPERVISOR Work Phone: [facility] External Department Unsolicited Start: 08-24-2024 End: 08-24-2024 External Result Encounter Katharina Toledo [employer]ING SUPERVISOR Work Phone: [facility] External Department Unsolicited Start: 08-24-2024 End: 08-24-2024 Patient encounter procedure Renny Hansen II Work Phone: [facility] Amb[facility] Work Phone: Start: 08-20-2024 End: 08-20-2024 ambulatory Miguel Murphy MD Facility:[facility] Start: 08-16-2024 End: 08-16-2024 Bamboo [...] (CMS/HCC) Start: 07-24-2024 End: 07-24-2024 ambulatory ELEANOR PAYTONDEEDEE Not Available Start: 07-19-2024 End: 07-19-2024 ambulatory DMITRIY DUQUE Not Available Start: 07-18-2024 End: 07-18-2024 ambulatory [facility] Start: 07-16-2024 End: 07-16-2024 Refill Monster [...] Available Start: 06-19-2024 End: 06-19-2024 ambulatory DMITRIY [facility] Start: 06-18-2024 End: 06-18-2024 Refill Monster Calvillo [employer] SUPERVISOR Work Phone: [facility] Comment on above: Acute on chronic nisa stolic (congestive) heart failure (CMS/HCC) Start: 05-31-2024 End: 05-31-2024 Bamboo flowsheet Monster Calvillo [employer] SUPERVISOR Work Phone: [facility] Start: 05-31-2024 End: 05-31-2024 Bamboo flowsheet Monster Calvillo [employer] SUPERVISOR Work Phone: [facility] Start: 05-31-2024 End: 05-31-2024 Office outpatient visit 15 minutes Monster Calvillo [employer] SUPERVISOR Work Phone: [facility] Comment on [...] Jr. Sakina Cardenas DO Work Phone: [facility] Comment on above: Acute pain of left s houlder (Primary Dx); History of reverse total replacement of left shoulder joint Start: 05-02-2024 End: 05-02-2024 ambulatory MD Shaikh Denis Work Phone: [facility] Work Phone: Start: 05-02-2024 End: 05-02-2024 Patient encounter procedure MD Shaikh Denis Work Phone: [facility]Nuc Med [facility] [place] Work Phone: Start: 04-10-2024 End: 04-10-2024 ambulatory MD Shaikh Denis Work Phone: [facility] Work Phone: Start: 04-10-2024 End: 04-10-2024 Patient encounter procedure MD Shaikh Denis Work Phone: [facility]MRI [facility] [place] Work Phone: Start: 03-29-2024 End: 03-29-2024 ambulatory MD Shaikh Denis Work Phone: [facility] Work Phone: Start: 03-29-2024 End: 03-29-2024 Patient encounter procedure MD Shaikh Denis Work Phone: [facility]-Pacemaker Check Start: 03-07-2024 End: 03-07-2024 ambulatory Jair ALEXANDER Facility:[id number] Start: 03-02-2024 End: 03-02-2024 ambulatory Jair ALEXANDER Facility:[facility] Start: 03-02-2024 End: 03-02-2024 Patient encounter procedure Jair ALEXANDER [facility] Start: 03-01-2024 ambulatory Jair ALEXANDER Facility:[facility] Start: 10-17-2023 Bamboo flowsheet Shaikh Cira CUBA Work Phone: [facility] Start: 10-17-2023 Bamboo flowsheet Shaikh Cira CUBA Work Phone: [facility] Start: 10-11-2023 End: 10-11-2023 ambulatory MD Shaikh Denis Work Phone: [facility] Work Phone: Start: 10-11-2023 End: 10-11-2023 Patient encounter procedure MD Shaikh Denis Work Phone: [facility] [place] Work Phone: Start: 09-08-2023 End: 09-08-2023 ambulatory MD Shaikh Denis Work Phone: [facility] Work Phone: Start: 09-08-2023 End: 09-08-2023 Patient encounter procedure MD Shaikh Denis Work Phone: [facility]Pacemaker Check Start: 09-06-2023 Patient encounter [...] 10-07-2021 End: 10-07-2021 ambulatory Hong Nevarez Other [facility] Other Start: 10-07-2021 Office outpatient vi sit 15 [address] [facility] Start: 08-26-2021 End: 08-26-2021 ambulatory Hong Nevarez Other [facility] Other Start: 08-26-2021 Office outpatient ne w 45 minutes [address] [facility] Start: 10-11-2020 End: 10-13-2020 Evaluation and management of inpatient ZANEJennifer MCGUIRE Facility:[facility] Procedures Date Procedure Procedure Detail Performing Clinician Start: 04-24-2025 ALL CBC WITH AUTO DIFF Generic External Data Provider Start: 04-24-2025 Urnls dip stick/tabl et rgnt non-auto w/o micrscp Shannon Russo [employer] SUPERVISOR Work Phone: Start: 04-24-2025 URINARY TRACT INFECT ION (HTRX) Shannon Russo [employer]ING SUPERVISOR Work Phone: Start: 02-21-2025 ALL BASIC METABOLIC PANEL Generic External Data Provider Start: 02-21-2025 ALL C REACTIVE PROTEIN Generic External Data Provider Start: 01-03-2025 Ultrasonography of axilla Renny Hansen II Work Phone: Start: 12-21-2024 ALL BASIC METABOLIC PANEL Generic External Data Provider Start: 10-24-2024 C-reactive protein Jr. Sakina Ovalle Stepanic DO Work Phone: Start: 10-24-2024 DIFF AND CBC Jr. Sakina Ovalle Stepbucky DO Work Phone: Start: 10-24-2024 Sedimentation rate [...] Start: 10-02-2024 ISTAT XRAY CRE Katharina herrera [employer] SUPERVISOR Work Phone: Start: 10-02-2024 CT of left shoulder with contrast Renny Hansen II Work Phone: Start: 09-19-2024 Urnls dip stick/tabl et rgnt non-auto w/o micrscp Luisana Leal [employer]ING SUPERVISOR Work Phone: Start: 08-24-2024 Complete blood count with white cell differential, automated Katharina Madai Toledo [employer]ING SUPERVISOR Work Phone: Start: 07-24-2024 ALL CBC WITH [...] Cardiac pacemaker, d evice (physical object) Jair PARKL Comment on above: Dr. Martinez Start: 10-13-2020 [...] of musculoten dinous cuff of shoulder Jair NILL Comment on above: right Total abdominal [...] Influenza Vacc ine (#1) [facility] Start: 05-03-2025 Patient referral [facility] Work Phone: Start: 05-03-2025 [facility] Start: 04-24-2025 End: 04-24-2026 URINARY TRACT INFECTION (HTRX) URINARY TRACT INFECTION (HTRX) Lab Routine Hematuria, unspecified type Expected: 04/24/2025 (Approximate), Expires: 04/24/2026 [facility] Work Phone: Comment on above: Expected: 04/24/2025 (Approximate), Expires: 04/24/2026 Start: 04-18-2025 End: 04-18-2025 Patient encounter procedure 04/18/2025 11:00 AM EDT Office Visit [facility] [address] [facility] [address] [place] [id number] Eleanor Dumont PA [address] [facility] [address] [place] [address] Arrived [facility] [place] [facility] Comment on above: Arrived Start: 02-18-2025 End: [...] 2:15 PM EST Office Visit [facility] [address] [facility] [address] [place] [id number] Dmitriy Duque, DO [address] [facility] [address] [place] [address] [facility] Start: 10-24-2024 End: 10-24-2024 Patient encounter procedure 10/24/2024 2:15 PM EST Office Visit [facility] [address] [place] [address] Jr. Sakina Cardenas, DO [address] [place] [address] Injury of left shoulder and upper arm, sequela; Left shoulder pain, unspecified chronicity [facility] Comment on above: Injury of left shoul kathie and upper arm, sequela; Left shoulder pain, unspecified chronicity Start: 10-17-2024 End: 10-17-2024 Patient encounter procedure [facility] Comment on above: Arrived Start: 10-04-2024 End: 10-04-2024 Patient encounter procedure 10/04/2024 3:45 PM EST Consult [facility] [address] [facility] [address] [place] [id number] Dmitriy Duque, DO [address] [facility] [address] [place] [address] [facility] Start: 09-25-2024 Patient referral [facility] Work Phone: Start: 09-19-2024 End: 09-19-2024 Patient encounter procedure 09/19/2024 3:00 PM EST Office Visit [facility] [address] [place] [id number] Luisana Leal, [employer]ING SUPERVISOR [address] [place] [address] [facility] Start: 09-19-2024 End: 09-19-2025 URINARY TRACT INFECTION (HTRX) URINARY TRACT INFECTION (HTRX) Lab Routine Burning with urination Expected: 09/19/2024 (Approximate), Expires: 09/19/2025 [facility] Work Phone: Comment on above: Expected: 09/19/2024 (Approximate), Expires: 09/19/2025 Start: 09-18-2024 End: 09-18-2024 Patient encounter procedure 09/18/2024 10:15 AM EST Office Visit [facility] [address] [address] [place] [address] Salome Cid DO [address] [place], [place] [id number] Neck pain on left side [facility] [facility] Comment on above: Neck pain on left si de Start: 09-14-2024 End: 09-14-2024 Patient encounter procedure 09/14/2024 10:00 AM EST Office Visit [facility] [address] [facility] [address] [place] [phone] Renny Hansen MD [address] [facility] [address] [place] [address] [facility] Start: 09-10-2024 [facility] Start: 09-10-2024 [facility] Start: 09-06-2024 Medicare Annual Well ness (AWV) Medicare Annual Wellness (AWV) [facility] Start: 09-03-2024 [facility] Start: 08-31-2024 [facility] Start: 08-31-2024 [facility] Start: 08-23-2024 End: 08-23-2024 Patient encounter procedure 08/23/2024 11:45 AM EST Office Visit [facility] [address] [place] [address] [place] [phone] Renny Hansen MD [address] [place] [address] [facility] Start: 08-16-2024 End: 08-16-2024 Patient encounter procedure 08/16/2024 10:30 AM EST Office Visit [facility] [address] [facility] [address] [place] [phone] Renny Hansen MD [address] [facility] [address] [place] [address] [facility] Start: 08-02-2024 End: 08-02-2025 [...] NEUR [address] [place] [address] [facility] Start: 07-05-2024 End: 07-05-2025 EMG AND NERVE CONDUCTION STUDY EMG AND NERVE CONDUCTION STUDY Neurology Routine Neck pain on left side Radicular pain in left arm Expected: 07/05/2024 (Approximate), Expires: 07/05/2025 [facility] Comment on above: Expected: 07/05/2024 (Approximate), Expires: 07/05/2025 Start: 07-05-2024 End: 09-04-2025 MG Breast - bilateral Screening Bilateral screening mammogram Imaging Routine Breast screening Expected: 07/05/2024 (Approximate), Expires: 09/04/2025 [facility] Work Phone: Comment on above: Expected: 07/05/2024 (Approximate), Expires: 09/04/2025 Start: 07-05-2024 End: 07-05-2024 Patient encounter procedure [facility] Comment on above: Arrived Start: 05-31-2024 End: 05-31-2024 Patient encounter procedure 05/31/2024 1:30 PM EDT Office Visit [facility] [address] [place] [place] [address] Monster Calvillo NP [address] [place] [address] Arrived [facility] Comment on above: Arrived Start: 05-22-2024 End: 08-21-2024 C reactive protein [Mass/volume] in Serum or Plasma C-REACTIVE PROTEIN Lab Routine 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) Expected: 05/22/2024, Expires: 08/21/2024 [facility] Comment on above: Expected: 05/22/2024 , Expires: 08/21/2024 Start: 05-22-2024 End: 08-21-2024 CBC W Auto Differential panel - Blood COMPLETE BLOOD COUNT AND DIFFERENTIAL Lab Routine 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) Expected: 05/22/2024, Expires: 08/21/2024 [facility] Comment on above: Expected: 05/22/2024 , Expires: 08/21/2024 Start: 05-22-2024 End: 08-21-2024 Erythrocyte sedimentation rate [facility] Routine 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) Expected: 05/22/2024, Expires: 08/21/2024 [facility] Comment on above: Expected: 05/22/2024 , Expires: 08/21/2024 Start: 05-22-2024 End: 05-22-2024 Patient encounter procedure 05/22/2024 2:00 PM EDT Office Visit [facility] [address] [place] [phone] Monster Calvillo NP [address] [place] [phone] [facility] Start: 05-13-2024 Covid-19 Vaccine ( season) Covid-19 Vaccine () [facility] Start: 05-13-2024 Influenza vaccination Influenza Vacc ine (#1) [facility] Start: 05-09-2024 End: 05-09-2024 Patient encounter procedure 05/09/2024 10:00 AM EDT Office Visit [facility] [address] [place] [address] [place] [phone] Jr. Sakina Cardenas, 112 [facility] [address] [place] [address] [facility] Start: 11-07-2023 End: 11-07-2023 Patient encounter procedure 11/07/2023 2:30 PM EST Office Visit [facility] [address] [place] [phone] Shaikh eDnis MD [address] [place] [address] [facility] Start: 10-17-2023 End: 10-17-2023 Patient encounter procedure 10/17/2023 10:15 AM EST Office Visit [facility] [address] [place] [phone] Shaikh Denis MD [address] [place] [phone] Arrived [facility] Comment on above: Arrived Start: 09-12-2023 Advance Directive Discussion Advance Directive Discussion [facility] Start: 11-30-2012 Screening for osteoporosis Bone Dens ity Screening [facility] Start: 11-30-1997 Shingrix Vaccine (1 of 2) Reyes grix Vaccine (1 of 2) [facility] Start: 11-30-1992 Diabetes Screening Diabetes Screenin g [facility] Start: 11-30-1966 Urine microalbumin profile DTa P,Tdap,Td Vaccine (1 - Tdap) [facility] Start: 11-30-1965 Anxiety Screening Anxiety Screening [facility] Start: 11-30-1965 Depression Screening Depression Scre ening [facility] Start: 11-30-1965 Hepatitis C screening Hepatitis C Sc reening [facility] Start: 1945 Screening for malign ant neoplasm of colon [facility] CBC W Auto Different ial panel - Blood CBC auto differential Lab Routine 10/02/2024 11:54 AM EST [facility] Work Phone: CBC W Auto Different ial panel - Blood [facility] Work Phone: Comment on above: Ordered: 10/24/2024 Comprehensive metabo lic 1999 panel - Serum or Plasma [facility] Comprehensive metabo lic 1999 panel - Serum or Plasma [facility] Comprehensive metabo lic 1999 panel - Serum or Plasma [facility] CT Shoulder - left W contrast IV [facility] End: 06-21-2025 CT Shoulder - left WO contrast CT SHOULDER WO IVCON LEFT Radiology Routine 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) 1 Occurrences starting 05/22/2024 until 06/21/2025 [facility] Work Phone: Comment on above: 1 [...] [facility] Work Phone: Patient referral [facility] Work Phone: [facility] Immunizations Immunization Date Immunization Notes Care Provider Fa cili 09-19-2024 Influenza, High-dose Seasonal, Quadrivalent, Preservative Free Luisana Leal [employer] Work Phone: [facility] 09-19-2024 influenza virus vacc ine, unspecified formulation Eleanor Dumont PA Work Phone: [facility] 08-25-2023 influenza virus vacc ine, unspecified formulation Jair ALEXANDER [facility] 08-25-2023 Influenza, Seasonal, Quadrivalent, Adjuvanted Shaikh Cira CUBA Work Phone: [facility] 08-25-2023 RSV, recombinant, protein subunit RSVpreF, adjuvant reconstitu, 120mcg/0.5mL, PF (Arexvy) Shaikh Cira CUBA Work Phone: [facility] 07-08-2022 influenza virus vacc ine, unspecified formulation Jair ALEXANDER [facility] 07-08-2022 Influenza, Seasonal, Quadrivalent, Adjuvanted Shaikh Cira CUBA Work Phone: [facility] 08-20-2021 influenza virus vacc ine, unspecified formulation Jair ALEXANDER [facility] 08-20-2021 Influenza, Seasonal, Quadrivalent, Adjuvanted Shaikh Cira CUBA Work Phone: [facility] 12-09-2021 pneumococcal polysaccharide vaccine, 23 valent Jair NILL [facility] 11-18-2020 SARS-CoV-2 (COVID-19 ) mRNA-1273 vaccine Jair NILL [facility] 10-20-2020 SARS-CoV-2 (COVID-19 ) mRNA-1273 vaccine Jair NILL [facility] 08-04-2020 influenza virus vacc ine, unspecified formulation Jair NILL [facility] 08-04-2020 Influenza, Seasonal, Quadrivalent, Adjuvanted Shaikh Cira CUBA Work Phone: [facility] 08-04-2020 pneumococcal conjuga te vaccine, 13 valent Jair NILL [facility] 08-06-2019 influenza virus vacc ine, unspecified formulation Jair NILL [facility] 08-06-2019 influenza, high dose seasonal, preservative-free Shaikh Cira CUBA Work Phone: [facility] 07-05-2017 influenza virus vacc ine, unspecified formulation Jair NILL [facility] 07-05-2017 pneumococcal conjuga te vaccine, 13 valent Jair NILL [facility] 07-05-2017 Seasonal trivalent influenza vaccine, adjuvanted, preservative free Shaikh Cira CUBA Work Phone: [facility] 06-29-2016 influenza virus vacc ine, unspecified formulation Jair PARKL [facility] 06-29-2016 Seasonal trivalent influenza vaccine, adjuvanted, preservative free Shaikh Cira CUBA Work Phone: [facility] 06-25-2015 influenza virus vacc ine, unspecified formulation Jair ALEXANDER [facility] 06-25-2015 influenza, injectabl e, quadrivalent, contains preservative Shaikh Cira CUBA Work Phone: [facility] 06-12-2015 influenza virus vacc ine, unspecified formulation Jair ALEXANDER [facility] 06-12-2015 seasonal influenza, intradermal, preservative free Shaikh Cira CUBA Work Phone: [facility] 07-12-2014 influenza virus vacc ine, unspecified formulation Jair ALEXANDER [facility] 07-12-2014 influenza, injectabl e, quadrivalent, contains preservative Shaikh Cira CUBA Work Phone: [facility] 08-07-2013 influenza virus vacc ine, unspecified formulation Jair ALEXANDER [facility] 08-07-2013 influenza, seasonal, injectable Shaikh Cira CUBA Work Phone: [facility] Payers Date Payer Category Payer Unknown [id number] 2024 Medicare (Managed Care) [employer]IC[employer] [id number] 2024 Unknown [id number] 2024 Unknown 2024 Self-pay [id number] 2023 Medicaid AETNA MEDICARE A DVANTAGE [id number] [facility] [id number] 2023 Private Health Insurance 2023 Managed Care HMO (unspecified) [employer] A[employer] [id number] 2023-Present [address] [place] [address] HMO [id number] 2007 Medicare [id number] 1959 Medicare [id number] 1959 Private Health Insurance [facility] [id number] 1947 Unknown [id number] 2.16.840.1.431810.3.579.2. 647 1947 Unknown [id number] 2.16.840.1.318190.3.579.2. 593 1947 Unknown [id number] 2.16.840.1.461109.3.579.2. 593 1947 Unknown [id number] 2.16.840.1.100247.3.579.2. 593 1947 Unknown [id number] 2.16.840.1.410660.3.579.2. 593 1947 Unknown [id number] 2.16.840.1.740852.3.579.2. 593 1947 Unknown [id number] 2.16.840.1.909201.3.579.2. 593 1947 Unknown [id number] 2.16.840.1.299642.3.579.2. 593 1947 Unknown [id number] 2.16.840.1.019029.3.579.2. 593 1947 Unknown [id number] 2.16.840.1.735871.3.579.2. 593 1947 Unknown [id number] 2.16.840.1.165081.3.579.2. 593 1947 Unknown [id number] 2.16.840.1.547933.3.579.2. 593 1947 Unknown [id number] 2.16.840.1.837992.3.579.2. 593 1947 Unknown [id number] 2.16.840.1.551728.3.579.2. 593 1947 Unknown [id number] 2.16.840.1.691001.3.579.2. 593 1947 Unknown [id number] 2.16.840.1.701791.3.579.2. 593 1947 Unknown [id number] 2.16.840.1.700536.3.579.2. 593 1947 Unknown [id number] 2.16.840.1.726974.3.579.2. 593 1947 Unknown [id number] 2.16.840.1.691338.3.579.2. 593 1947 Unknown [id number] 2.16.840.1.314470.3.579.2. 593 1947 Unknown [id number] 2.16.840.1.895798.3.579.2. 593 1947 Unknown [id number] 2.16.840.1.497438.3.579.2. 593 1947 Unknown [id number] 2.16.840.1.881739.3.579.2. 593 1947 Unknown [id number] 2.16.840.1.799997.3.579.2. 593 1947 Unknown [id number] 2.16.840.1.371141.3.579.2. 593 1947 Unknown [id number] 2.16.840.1.216030.3.579.2. 593 1947 Unknown [id number] 2.16840.1.842201.3.579.2. 593 1947 Unknown [id number] 2.16.840.1.971163.3.579.2. 727 1947 Unknown [id number] 2.16840.1.954690.3.579.2. 727 1947 Unknown [id number] 2.16.840.1.040844.3.579.2. 1259 1947 Unknown [id number] 2.16840.1.956340.3.579.2. 1259 1947 Unknown [id number] 2.16.840.1.713687.3.579.2. 1259 1947 Unknown [id number] 2.16.840.1.485825.3.579.2. 1259 1947 Unknown [id number] 2.16.840.1.067304.3.579.2. 1259 1947 Unknown [id number] 2.16.840.1.505448.3.579.2. 1259 1947 Unknown [id number] 2.16.840.1.825685.3.579.2. 1258 1947 Unknown [id number] 2.16.840.1.073146.3.579.2. 1258 1947 Unknown [id number] 2.16.840.1.785456.3.579.2. 1258 1947 Unknown [id number] 2.16.840.1.974147.3.579.2. 1258 1947 Unknown [id number] 2.16.840.1.216492.3.579.2. 1258 1947 Unknown [id number] 2.16.840.1.499239.3.579.2. 1258 1947 Unknown [id number] 2.16840.1.449869.3.579.2. 1258 1947 Unknown [id number] 2.16840.1.277079.3.579.2. 1258 1947 Unknown [id number] 2.16840.1.684041.3.579.2. 1258 1947 Unknown [id number] 2.16.840.1.910673.3.579.2. 1258 1947 Unknown [id number] 2.840.1.218202.3.579.2. 1258 1947 Unknown [id number] 2.16840.1.294362.3.579.2. 1947 Unknown [id number] 2.16840.1.363159.3.579.2. 1947 Unknown [id number] 2.16.840.1.112766.3.579.2. 1947 Unknown [id number] 2.16840.1.098960.3.579.2. 1947 Unknown [id number] 2.16840.1.663389.3.579.2. 196 1947 Unknown [id number] 2.0.1.783660.3.579.2. 196 1947 Unknown [id number] 2.840.1.200892.3.579.2. 196 Medicare Medicare Outpatient [id number] Unknown [facility] [id number] Unknown [id number] 2.840.1.130646.3.579.2. 531 Unknown [id number] 2.840.1.800531.3.579.2. 531 Unknown [id number] 2.0.1.626730.3.579.2. 531 Unknown [id number] 2.0.1.835112.3.579.2. 531 Social History Date Type Detail Facility Start: 08-30-2023 End: 11-12-2024 Sex Assigned At [facility] Start: 1945 Sex Assigned At Female [facility] Start: 08-18-2023 End: 10-17-2024 Tobacco smoking status [facility] Ex-smoker [facility] Start: 09-12-1967 History [...] Healthcare How often do you att end denominational or restoration services? Patient refused [facility] Do you belong to any clubs or organizations such as denominational groups, unions, fraternal [...] money to buy more. DK or Refused [facility] Start: 08-18-2023 Alcohol Comment (Audit-C) : Negative [facility] Start: 1945 Sex Assigned At Not on file [facility] Start: 04-27-2013 End: 05-22-2024 Tobacco smoking status NHIS Never smoked tobacco (finding) [facility] Start: 05-22-2024 Tobacco use and exposure Smokeless tobacco non-user [facility] Start: 05-22-2024 End: 04-24-2025 Alcoholic beverage intake Current drinker of alcohol (finding) [facility] History of tobacco use Passive smoker [facility] Start: 11-07-2023 Alcohol Comment OCCASSIONAL [facility] Start: 09-25-2024 End: 10-29-2024 Sex Female (finding) [facility] Are you now , , , , never or living with a partner? Living with partner [facility] Do you feel stress - [...] Health Quest ionnaire 2 item (PHQ-2) [Reported] [facility] 04-18-2025 Patient Health Quest ionnaire 2 item (PHQ-2) [Reported] [facility] 02-18-2025 Patient Health Quest ionnaire 2 item (PHQ-2) [Reported] [facility] 03-02-2024 Functional Status N/A [facility] Clinical Notes 08-26-2021 to 05-15-2025 Shannon Russo [...] Repeat labs today Follow-up in 3 months [facility] 04-24-2025 History of Present illness [...] by mouth every 12 (twelve) hours HYDROcodone-acetaminophen ([place]) 5-325 MG tablet Take 1 tablet by [...] documented in this encounter [facility] 04-18-2025 History of Present illness Narrative Subjective Patient ID: Breann Starks is a 79 y.o. female who presents for COPD. Breann is present today for follow up COPD. She has a nebulizer at home but is not working properly and it is over 20 years old. She would like it sent to [facility] in [place] (old AGUSTINA Cruz). She uses it as needed. She does [...] by mouth every 12 (twelve) hours HYDROcodone-acetaminophen ([place]) 5-325 MG tablet Take 1 tablet by [...] broken. Will fax order for nebulizer to [facility], . It is medically necessary for patient [...] the nebulizer, patient is at risk for BOARD RUNNER Exacerbation that may require hospitalization, as well as hypoxia which can lead to falls. Falls can cause potentially fatal injuries. Refill provided on the nebulizer solution also at today's visit. Follow up for Appointment As Scheduled. documented in this encounter [facility] 02-20-2025 Note Subjective Patient ID: Breann [...] Repeat labs today Follow-up in 3 months [facility] 02-18-2025 History of Present illness [...] by mouth every 12 (twelve) hours HYDROcodone-acetaminophen ([place]) 5-325 MG tablet Take 1 tablet by [...] months (around 05/21/2025). documented in this encounter [facility] 01-17-2025 Note Subjective Patient ID: Breann [...] - C-reactive protein; (more content not included)... [facility] 01-01-2025 Note Orthopaedic Surgery Subjective [...] be an additional personal documentation from me. [facility] 12-24-2024 Note [place] Cardiology - [facility] Subjective Breann Starks is a 79 y.o. year old female patient being seen for Coronary Artery Disease, Hypertension, Congestive Heart Failure, Hyperlipidemia, and 3 month follow up Patient Active Problem List Diagnosis Disorder of bursae of shoulder region Chronic obstructive lung disease (CMS/HCC) Atherosclerosis of [place] coronary artery of [place] heart without angina pectoris Diaphragmatic hernia Edema [...] furosemide (Lasix) 4 (more content not included)... [facility] 12-17-2024 History of Present illness Narrative Images from the original note were not included. HPI Results Additional comments: Mammo and breast us results Last edited by Carlene Yan LPN on 12/17/2024 10:58 AM. Subjective Patient ID: rBeann Starks is a 79 y.o. female who [...] by mouth every 12 (twelve) hours HYDROcodone-acetaminophen ([place]) 5-325 MG tablet Take 1 tablet by [...] region with neurogenic claudication SVT (supraventricular tachycardia) ([facility]/HCC) URTI (acute upper respiratory infection) Vertigo Vitamin [...] associated with prosthesis of left shoulder joint ([facility]/HCC) - Seeing Dr Holt (Ortho, [place]). On 1 month ATB course. Abnormal mammogram - Results discussed. She has left axillary LAD from above. Enlarged lymph nodes in armpit - This office visit was spent in consultation regarding the patient's current medical problems, differential diagnoses, testing/imaging results, and treatment options. Greater than 25 minutes was spent in [id number] consultation and coordination of care. No follow-ups [...] her about suppression versus doing something definitive. [facility] 11-13-2024 Note Orthopedic Surgery Subjective [...] Diagnosis Date Abnormal ECG Arrhythmia Atrial fibrillation ([facility]) Coronary artery disease Hypertension Objective General: Body mass index is 44.43 kg/m???. No acute distress, comfortable Left UE/Hand: Inspection- swelling and erythema overlying the left shoulder and upper arm Tender to palpation surrounding shoulder, otherwise non-tender ROM: Limited shoulder range of motion patient with flexion to 40 degrees, abduction to 20 full painless motion to all digits and the wrist Strength: iron and steel work supervisor 5/5, thumb 5/5, interossei 5/5. wrist extension/flexion [...] be an additional personal documentation from me. [facility] 11-13-2024 Note Patient ID: Breann [...] to verify the correct patient, procedure, equipment, shipping support and site/side marked as required. [facility] 11-10-2024 Telephone encounter Note I think it is the op note left shoulder on 01/07/2022 ( Dr. Amin- [facility]) thanks [facility] Work Phone: 11-10-2024 Miscellaneous Notes I think it is the op note left shoulder on 01/07/2022 ( Dr. Amin- [facility]) thanks Patient called in about seeing and the referral to . Patient needs us to send the op report for LT shoulder to because 's office cannot.. 's fax number is [phone]. Is this ok? documented in this encounter [facility] 11-09-2024 Telephone encounter Note Patient called in about seeing and the referral to . Patient needs us to send the op report for LT shoulder to because 's office cannot.. 's fax number is [phone]. Is this ok? 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 Wrist flex/ ext. Symmetric 5/5 [...] We have recommended a second opinion at [facility] and set her up with [...] [facility] 05/09/24 @ [facility] (CBC / SED RATE / CRP) NO MDP / PREDNISONE NO RECENT PT PAIN MGMT @[facility] (LBP) (NECK PAIN 08/2024) CONTINUES TO HAVE [...] HER (L) ARM TO USE A BACK BUFFING AND POLISHING WHEEL REPAIRER ON HER BACK ALLERGIES: Allergies Allergen Reactions [...] (TAMBOCOR) 100 mg, Every 12 hours HYDROcodone-acetaminophen ([place]) 5-325 MG tablet 1 tablet, 3 times [...] Elbow: none Palpation additional comments: Neg Spurlings Drip Molder strength symmetric. Wrist flex/ ext. Symmetric 5/5 [...] due to internal joint prosthesis, initial encounter ([facility]) T84.50XA CBC and differential C-reactive [...] by mouth every 12 (twelve) hours HYDROcodone-acetaminophen ([place]) 5-325 MG tablet Take 1 tablet by [...] [facility] 10-[facility]-2024 Radiology Diagnostic study note [facility] [place] [address] Ultrasound Report Signed Patient: Breann tSarks MR#: [id number] : 1945 Acct:[id number] Age/Sex: 78 / F ADM Date: 5 Loc: [facility] Room: Type: [facility] Attending Dr: Dmitriy Duque DO Ordering Provider: Dmitriy Duque DO Date of Service: 10/16/24 US/US axilla: R92.8 ([id number]) MM/MM diagnostic mammo BI w/CAD: ENLARGED LT [...] Benton Jr., D.O.10/16/2024 2:20 PM Dictation Location: [facility] Tech: Ghazal Barber Transcribed By: STAR 10/16/24 1420 Dictated By: Francisco J Benton Jr, DO 10/16/24 1343 Signed By: 10/16/24 1420 [facility] 10-04-2024 History of Present illness Narrative Images from the original note were not included. Breann Starks 1945 Breann Starks is a 78 y.o. female presents with chief complaint of Consult (Lt axillary lymphadenopathy) HPI: HPI patient was vigorously scratching her back with a back benzol still operator on February 15 and the next [...] furosemide (LASIX) 40 mg, Oral, Daily HYDROcodone-acetaminophen ([place]) 5-325 MG tablet 1 tablet, 3 times [...] Former Physical Exam Exam conducted with a child therapist present. Constitutional: Appearance: Normal appearance. HENT: Head: [...] this encounter [facility] 09-24-2024 Note [place] Cardiology - [facility] Subjective Breann Starks is a 78 [...] Chronic obstructive lung disease (CMS/HCC) Atherosclerosis of [place] coronary artery of [place] heart without angina pectoris Diaphragmatic hernia Edema [...] at bedtime. (Patient (more content not included)... [facility] 09-19-2024 History of Present illness [...] Reported on 09/18/2024) 90 tablet 0 HYDROcodone-acetaminophen ([place]) 5-325 MG tablet Take 1 tablet by [...] Complaint: neck pain and paresthesia Subjective Breann Jonah Starks, 78 y.o., female Patient presents today [...] , wrist extensors , wrist flexor , iron and steel work supervisor strength 5/5. Left upper extremity strength is [...] reflex 2+ . Neal's sign negative. Coordination: [id number] testing and rapid alternating movements are normal [...] deficiency anemia acute De cember 2023 12:55pm [facility] Work Phone: [phone]) 635-461312-13-2024 Evaluation note* Diagnosis Onset Date Resolution Status Admit Date Iron deficiency anemia acute De cember 2023 12:55pm Axillary lymphadenopathy acute September 25, 2024 11:08am Iron deficiency anemia acute Ja nuary 2024 11:08am [facility] Work Phone: [phone] 600-412612-05-2024 History of Present illness Narrative* Renny Hansen [...] MOUTH EVERY DAY 90 tablet 0 HYDROcodone-acetaminophen ([place]) 5-325 MG tablet Take 1 tablet by [...] for As Previously Scheduled. documented in this encounterSelect Specialty [id number] History of Present illness Narrative* Renny Hansen [...] MOUTH EVERY DAY 90 tablet 0 HYDROcodone-acetaminophen ([place]) 5-325 MG tablet Take 1 tablet by [...] Date Anemia Atrial fibrillation (CMS/HCC) Centrilobular emphysema ([facility]/HCC) COPD (chronic obstructive pulmonary disease) ([facility]) COPD exacerbation ([facility]) 10/17/2023 Coronary artery disease ([facility]/HCC) Diastolic dysfunction Essential hypertension ([facility]/HCC) History of tobacco abuse Nonalcoholic steatohepatitis (LOJA) Obstructive sleep apnea Osteoarthritis Paroxysmal atrial fibrillation ([facility]/HCC) Peptic ulcer disease Secondary pulmonary arterial hypertension ([facility]/HCC) Sick sinus syndrome ([facility]/HCC) Spinal stenosis, lumbar region with neurogenic claudication SVT (supraventricular tachycardia) ([facility]) URTI (acute upper respiratory infection) [...] Greater than 25 minutes was spent in npxo-pi-[id number] consultation and coordination of care. Persistent atrial fibrillation (HCC) (CMS/HCC) Nausea - FL upper GI double contrast w KUB; Future Follow up in about 2 weeks (around 08/16/2024) for Test/Lab Review. documented in this [facility]11-13-2024 Telephone encounter Note* Telephone Encounter - DANIELLE Florence - 07/25/2024 1:07 PM EST My chart message. NOMS [id number] Miscellaneous Notes* Telephone Encounter - DANIELLE Florence - 07/25/2024 1:07 PM EST My chart message. documented in this [facility]11-12-2024 History of Present illness Narrative* DANIELLE Florence [...] arm. Pt does see pain magment in [place]. Sees their office next week on the [...] MOUTH EVERY DAY 90 tablet 0 HYDROcodone-acetaminophen ([place]) 5-325 MG tablet Take 1 tablet by [...] Neck pain on left side Can continue [place] as needed for pain. Radicular pain in [...] (CMS/HCC) The patient is seeing a medical record administrator for this condition, treatment is deferred to that specialist. Correspondence from that specialist and any available testing were reviewed during today's visit. She will be having Cardiac Catheterization for further evaluation of the pulmonary hypertension. Other thrombophilia Will recheck with updated labs. Follow up in about 4 weeks (around 08/21/2024) for Next scheduled follow-up with Dr. Hansen. documented in this encounterSelect Specialty HospitalAtwwybjqgq36-02-1255 Telephone encounter Note* Telephone Encounter - DANIELLE Florence - 07/24/2024 10:04 AM EST Will discuss with pt at today's OV [facility] [id number] Miscellaneous Notes* Telephone Encounter - DANIELLE Florence - 07/24/2024 10:04 AM EST Will discuss with pt at today's OV * Telephone Encounter - Renny Hansen MD - 07/05/2024 2:55 PM EDT Call after mammogram with plan. See last OV. documented in this encounterSelect Specialty [id number] NoteUT Cardiology - [facility] Subjective Breann Starks is a 78 y.o. year old female patient being seen for Atrial Fibrillation, PACEMAKER, Coronary Artery Disease, Hypertension, Sinus node dysfunction (HAS BOSTON PACER), Obesity, and Edema Patient Active Problem List Diagnosis Disorder of bursae of shoulder region Chronic obstructive lung disease (CMS/HCC) Atherosclerosis of [place] coronary artery of [place] heart without angina pectoris Diaphragmatic hernia Edema [...] rhythm, normal EKG Ech (more content not included)...[facility]10-24-2024 Telephone encounter Note* Telephone Encounter - Renny Hansen MD - 07/05/2024 2:55 PM EDT Call after mammogram with plan. See last OV. [facility] [id number] History of Present illness Narrative* Renny Hansen MD - 07/05/2024 9:00 AM EDT Images from the original note were not included. HPI Establish Care Additional comments: Previous pcp Dr Cira Saldivar cardiology-dr juan Holly-- orthopedic Last edited by Carlene Yan LPN on 07/05/2024 8:59 AM. Subjective Patient ID: Breann Starks is a 78 y.o. female who presents for Establish Care (Previous pcp Dr Denis/Sees cardiology-dr martinez/Dr. Holly-- orthopedic) and Hypertension. Hypertension [...] MOUTH EVERY DAY 90 tablet 0 HYDROcodone-acetaminophen ([place]) 5-325 MG tablet Take 1 tablet by [...] Greater than 45 minutes was spent in jlex-ht-[id number] consultation and coordination of care. Follow up in about 4 months (around 11/05/2024) for Call after mammogram. documented in this encounterSelect Specialty [id number] History of Present illness Narrative* Monster Calvillo NP - 06/02/2024 10:19 AM EDTAssociated Problem(s): Acute on chronic diastolic (congestive) heart failure (CMS/HCC) Discussed with Dr. Hennessy's office pt symptoms and clinical condition today in office. Sent pt to ER for further workup and tx of suspected CHF exacerbation. * Monster Calvillo [employer]ST[employer]PERVISOR - 05/31/2024 1:30 PM EDT Images from [...] CHF exacerbation. documented in this encounterSelect Specialty [id number] NoteHNO ID: [id number] Author: BOO BUCHANAN PA-C Service: ? Author Type: Physician Equipment Scheduler Type: Progress Notes Filed: 05/22/2024 13:53 Note [...] She was recommended for second opinion at [facility]. She also had a CRP and [...] No date: COPD (chronic obstructive pulmonary disease) ([facility]) SOCIAL HISTORY: Tobacco Use: Never [...] of the hardware. Bone scan performed at [facility]' to be uploaded to the system. Boo Buchanan (more content not included)...[facility] 05-22-2024 History of Present illness [...] She was recommended for second opinion at [facility]. She also had a CRP and [...] No date: COPD (chronic obstructive pulmonary disease) ([facility]) SOCIAL HISTORY: Tobacco Use: Never [...] hardware. Bone scan performed at [facility] to be uploaded to the system. Boo Buchanan PA-C documented [facility]24 NoteHNO ID: [id number] Author: JYOTHI CRUZ RT(R) Service: ? Author [...] PATIENT PRESENTS WITH AN IMPLANTABLE OR ATTACHED FINANCIAL EXAMINER: No RADIOLOGY DEPARTMENT: General X-ray: Exam(s) Completed: Upper Extremity X-Ray(s): Shoulder, AP / TRUE AP / AXILLARY / SUPRA OUTLET left PERIPHERAL IV DATA: Not applicable SIGNED BY: RT Chaparrita(Dario) May 22, 2024 1:25 [facility]09-10-2024 History of Present illness Narrative* Jyothi [...] PATIENT PRESENTS WITH AN IMPLANTABLE OR ATTACHED FINANCIAL EXAMINER: No RADIOLOGY DEPARTMENT: General X-ray: Exam(s) Completed: Upper Extremity X- Ray(s): Shoulder, AP / TRUE AP / AXILLARY / SUPRA OUTLET left PERIPHERAL IV DATA: Not applicable SIGNED BY: RT Chaparrita(Dario) May 22, 2024 1:25 PM documented in this encounterDo[facility]08-28-2024 History of Present illness Narrative* Jr. [...] [facility] 05/09/[facility] @ TB (CBC / SED [...] USING HER(L) ARM TO USE A BACK BUFFING AND POLISHING WHEEL REPAIRER ON HER BACK ALLERGIES: Allergies Allergen Reactions Nsaids Other Reaction(s): HEART ISSUES Digoxin Rash Wound Dressing Adhesive Rash HOME MEDICATIONS: Current Outpatient Medications Medication Instructions apixaban (ELIQUIS) 5 mg, Oral, 2 times daily ferrous sulfate 325 mg, Oral, Daily with breakfast, Do not crush, chew, or split. flecainide (TAMBOCOR) 100 mg, Oral, Every 12 hours furosemide (LASIX) 40 mg, Oral, Daily HYDROcodone-acetaminophen ([place]) 5-325 MG tablet 1 tablet, Oral, 3 [...] Elbow: none Palpation additional comments: Neg Spurlings Drip Molder strength symmetric. Wrist flex/ ext. Symmetric 5/5 [...] Cardenas D.O. documented in this encounterSelect Specialty [id number] NoteChief Complaint consultation for anemia HPI Staff 78 year old female presents on consultation from [facility] [place] [facility] for anemia. Labs completed yesterday with [...] PSVT, spinal stenosis, cervical radiculopathy; referred from [facility] ED for anemia, low iron, and positive [...] PSVT (paroxysmal supraventricular t (more content not included)...[facility] HospitalComment on above:Result Comment: Electronically Signed By: CATHERINE CUBA, Jair Quinonez\Date and Time Signed: 03/02/24 13:01 [id number] Evaluation note* Encounter Date Diagnosis Assessment Notes Treatment Notes Treatment Clinical Notes Sep, LOJA (nonalcoholic steatohepatitis) (ICD-10 - K75.81) OBTAIN FIBROSURE RESULTS FROM [facility] ON RESULTS PT ENCOURAGED WEIGHT LOSS RTO ONE YEAR WITH LABS ANNUALLY Sep, Unspecified cirrhosis of liver (ICD-10 - K74.60) [facility] Other 12-15-2021 Evaluation note* Encounter Date Diagnosis Assessment Notes Treatment Notes Treatment Clinical Notes Aug, Nonalcoholic steatohepatitis (LOJA) (ICD-10 - K75.81) RTO 6-8 WEEKS Aug, Unspecified cirrhosi s of liver (ICD-10 - K74.60) Aug, Morbid obesity (ICD- 10 - E66.01) [facility] Other Evaluation + Plan note No data available for this section [facility] [place] Evaluation noteNo assessment information available [facility] Work Phone: Evaluation note* Diagnosis 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)- Primary Left shoulder pain, unspecified chronicity Left shoulder pain, unspecified chronicity [facility] Left [facility] pain, unspecified chronicity [facility] Diagnosis Acute on chronic diastolic [...] syndrome, unspecified type documented in this encounter [facility] HealthcareEvaluation note* Diagnosis Essential hypertension (CMS/HCC)- [...] Unspecified essential hypertension documented in this encounter [facility] HealthcareEvaluation note* Diagnosis Essential hypertension (CMS/HCC)- [...] Other thrombophilia (CMS/HCC) documented in this encounter [facility] HealthcareEvaluation note* Diagnosis Essential hypertension (CMS/HCC)- [...] blood loss (chronic) documented in this encounter [facility] HealthcareEvaluation note* Diagnosis Essential hypertension (CMS/HCC)- [...] Nausea Nausea alone documented in this encounter [facility] HealthcareEvaluation note* Diagnosis Essential hypertension (CMS/HCC)- [...] (CMS/HCC) Atrial fibrillation documented in this encounter [facility] HealthcareEvaluation note* Diagnosis Essential hypertension (CMS/HCC)- [...] tissues of limb documented in this encounter [facility] HealthcareEvaluation note* Diagnosis Essential hypertension (CMS/HCC)- [...] unspecified single disease documented in this encounter [facility] HealthcareEvaluation note* Diagnosis Essential hypertension (CMS/HCC)- [...] of lymph nodes documented in this encounter [facility] HealthcareEvaluation note* Diagnosis Essential hypertension (CMS/HCC)- [...] left upper extremity documented in this encounter [facility] HealthcareEvaluation note* Diagnosis Essential hypertension (CMS/HCC)- [...] initial encounter (CMS/HCC) documented in this encounter [facility] Healthcare[facility] note* Diagnosis Essential hypertension (CMS/HCC)- [...] left shoulder joint documented in this encounter [facility] Healthcare[facility] note* Diagnosis Essential hypertension (CMS/HCC)- [...] of lymph nodes documented in this encounter [facility] Healthcare[facility] note* Diagnosis Essential hypertension (CMS/HCC)- [...] legs syndrome (RLS) documented in this encounter [facility] HealthcareEvaluation note* Diagnosis Essential hypertension- Primary Unspecified [...] type (HCC)- Primary documented in this encounter [facility] HealthcareEvaluation note* Diagnosis Essential hypertension- Primary Unspecified [...] (BMI) of 45.0 to 49.9 in adult ([facility]-HCC) Acute on chronic diastolic (congestive) heart failure [...] Hematuria, unspecified type documented in this encounter [facility] HealthcareEvaluation note* Diagnosis Onset Date Resolution Status Admit Date Axillary lymphadenopathy acute May 03, 2025 1:47pm Iron deficiency anemia acute Au 2024 1:47pm [facility] Work Phone: History general Narrative - Reported* [...] Surgical History pacemaker Hospitalization History see above [facility] Other Hospital Discharge instructions No data available for this section [facility] [employer] [facility] Discharge instructionsAmbulatory Orders* Referral to General Surgery Location: [facility] Work Phone: Progress note No data available for this section [facility] Surgery [employer] Reason for referral (narrative)* Diagnostic Procedure Only (Routine) - Closed Specialty Diagnoses / Procedures Referred By Millie egan Referred To Contact XR IMAGING Diagnoses Left shoulder pain, unspecified chronicity Procedures XR SHOULDER ORTHO 4V AP/TRUE AP/LAT/OUTLET LEFT RADEX SHOULDER COMPLETE MINIMUM 2 VIEWS Boo Buchanan PA-C [address] [place] [address] [place] [address] Referral ID Status Reason Start Date Expiration Date V isits Requested Visits Authorized [id number] Closed Auto-Generate d Referral 05/08/2024 06/07/2025 1 1 [facility] for visit Narrative* Diagnostic Procedure Only (Routine) - Closed Specialty Diagnoses / Procedures Referred By Millie egan Referred To Contact XR IMAGING Diagnoses Left shoulder pain, unspecified chronicity Procedures XR SHOULDER ORTHO 4V AP/TRUE AP/LAT/OUTLET LEFT RADEX SHOULDER COMPLETE MINIMUM 2 VIEWS Boo Buchanan PA-C [address] [place] [address] [place] [address] Referral ID Status Reason Start Date Expiration Date V isits Requested Visits Authorized [id number] Closed Auto-Generate d Referral 05/08/2024 06/07/2025 1 1 [facility] for visit Narrative* Consultation (Routine) - Closed Specialty Diagnoses / Procedures Referred By Curryac t Referred To Contact Neurology Diagnoses Neck pain on left side Procedures NV OFFICE/OUTPATIENT NEW HIGH MDM 60 MINUTES Renny Hansen MD [address] [facility] [address] [place] [address] Phone: tel: fax: Paula Lord MD [address] [place] [address] Phone: tel: fax: Referral ID Status Reason Start Date Expiration Date V isits Requested Visits Authorized [id number] Closed Specialty Services Required 09/13/2024 03/12/2025 1 1 [facility] Healthcare Summary Purpose Family History No Family [...] Chronic left shoulder pain Monster Calvillo, ELBERT [address] [place] [id number] Referral ID Status Reason Start Date Expiration Date V isits Requested Visits Authorized [id number] Pending Review 05/16/2024 11/12/2024 1 1 Specialty Diagnoses / Procedures Referred By Millie t Referred To Contact CT IMAGING Diagnoses 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 [place] [address] [place] [address] Referral ID Status Reason Start Date Expiration Date V isits Requested Visits Authorized [id number] Closed Auto-Generate d Referral 05/08/2024 06/07/2025 1 1 Additional Source Comments INFORMATION SOURCE (unrecogn ized section and content) DATE CREATED AUTHOR 10/23/2021 [facility] DATE CREATED AUTHOR AUTHOR'S ORGANIZ ATION 01/22/2022 [facility] DATE CREATED AUTHOR AUTHOR'S ORGANIZ ATION 02/18/2023 [facility] DATE CREATED AUTHOR AUTHOR'S ORGANIZ ATION 03/11/2024 [facility] DATE CREATED AUTHOR AUTHOR'S ORGANIZ ATION 05/24/2024 [facility] DATE CREATED AUTHOR AUTHOR'S ORGANIZ ATION 05/18/2025 [facility] EP[facility] DATE CREATED AUTHOR AUTHOR'S ORGANIZ ATION 05/20/2025 [facility] DATE CREATED AUTHOR AUTHOR'S ORGANIZ ATION 05/26/2025 [facility] DATE CREATED AUTHOR AUTHOR'S ORGANIZ ATION 05/28/2025 [facility] REASON FOR VISIT (unrecogniz ed section and content) Reason Comments Pain Specialty Diagnoses / Procedures Referred By Contsolomon t Referred To Contact Orthopaedic Surgery Diagnoses Injury of left shoulder and upper arm, sequela Left shoulder pain, unspecified chronicity Renny Hansen MD [address] [facility] [address] [place] [address] Phone: tel: fax: Jr. Sakina Cardenas DO [address] [place] [address] Phone: tel: fax: Referral ID Status Reason Start Date Expiration Date V isits Requested Visits Authorized [id number] Closed Specialty Services Required 10/17/2024 04/15/2025 1 1 Reason Comments Radiology XR Reason Comments New Specialty Diagnoses / Procedures Referred By Millie t Referred To Contact Orthopedics / [facility] Diagnoses Acute pain of left shoulder History of reverse total replacement of left shoulder joint Procedures OFFICE/OUTPATIENT NEW HIGH MDM 60 MINUTES OFFICE/OUTPATIENT ESTABLISHED HIGH MDM 40 MIN AMB REFERRAL TO ORTHOPAEDIC SURGERY Pedro Pablo Cruz PA [address] [facility] [address] [place] [address] González Alvarado MD [address] [place] [address] Referral ID Status Reason Start Date Expiration Date V isits Requested Visits Authorized [id number] Authorized 05/08/2024 09/11/2024 99 99 Reason Comments [...] October 11, 2023 End: October 11, 2023 Inspector And Tester Relationship Specialty Start Date End Date [...] May 02, 2024 End: May 02, 2024 Inspector And Tester Relationship Specialty Start Date End Date Luisana Johnson MD [address] [place], [id number] PCP - General 01/05/06 Pedro Pablo Cruz MD [address] [place] [address] Referring Infectious Diseases 05/07/24 Inspector And Tester Relationship Specialty Start Date End Date Luisana Johnson MD [address] [place] [address] PCP - General 01/05/06 Pedro Pablo Cruz MD [address] [place] [address] Referring Infectious Diseases 05/07/24 Inspector And Tester Relationship Specialty Start Date End Date Luisana Johnson MD [address] [place] [address] PCP - General 01/05/06 Pedro Pablo Cruz MD [address] [place] [address] Referring Infectious Diseases 05/07/24 Inspector And Tester Relationship Specialty Start Date End Date Wesley Long MD [address] [place] [address] PCP - General Family Medicine 05/17/24 Monster Calvillo NP [address] [place] [address] Nurse Practitioner Family Medicine 05/17/24 Inspector And Tester Relationship Specialty Start Date End Date Wesley Long MD [address] [place] [address] PCP - General Family Medicine 05/17/24 Monster Calvillo NP [address] [place] [address] Nurse Practitioner Family Medicine 05/17/24 Inspector And Tester Relationship Specialty Start Date End Date Wesley Long MD [address] [place] [address] PCP - General Family Medicine 05/17/24 Monster Calvillo NP [address] [place] [address] Nurse Practitioner Family Medicine 05/17/24 Inspector And Tester Relationship Specialty Start Date End Date Wesley Lnog MD [address] [place] [address] PCP - General Family Medicine 05/17/24 Monster Calvillo NP [address] [place] [address] Nurse Practitioner Family Medicine 05/17/24 Inspector And Tester Relationship Specialty Start Date End Date Wesley Long MD [address] [place] [address] PCP - General Family Medicine 05/17/24 Monster Calvillo NP [address] [place] [address] Nurse Practitioner Family Medicine 05/17/24 Inspector And Tester Relationship Specialty Start Date End Date Wesley Long MD [address] [place] [address] PCP - General Family Medicine 05/17/24 Monster Calvillo NP [address] [place] [address] Nurse Practitioner Family Medicine 05/17/24 Inspector And Tester Relationship Specialty Start Date End Date Wesley Long MD [address] [place] [address] PCP - General Family Medicine 05/17/24 Monster Calvillo NP [address] [place] [address] Nurse Practitioner Family Medicine 05/17/24 Inspector And Tester Relationship Specialty Start Date End Date Wesley Long MD [address] [place] [address] PCP - General Family Medicine 05/17/24 Monster Calvillo NP [address] [place] [address] Nurse Practitioner Family Medicine 05/17/24 Inspector And Tester Relationship Specialty Start Date End Date Wesley Long MD [address] [place] [address] PCP - General Family Medicine 05/17/24 Monster Calvillo NP [address] [place] [address] Nurse Practitioner Family Medicine 05/17/24 Inspector And Tester Relationship Specialty Start Date End Date Wesley Long MD [address] [place] [address] PCP - General Family Medicine 05/17/24 Monster Calvillo NP [address] [place] [address] Nurse Practitioner Family Medicine 05/17/24 Inspector And Tester Relationship Specialty Start Date End Date Wesley Long MD [address] [place] [address] PCP - General Family Medicine 05/17/24 Monster Calvillo NP [address] [place] [address] Nurse Practitioner Family Medicine 05/17/24 Inspector And Tester Relationship Specialty Start Date End Date Wesley Long MD [address] [place] [address] PCP - General Family Medicine 05/17/24 Monster Calvillo NP [address] [place] [address] Nurse Practitioner Family Medicine 05/17/24 Inspector And Tester Relationship Specialty Start Date End Date Wesley Long MD [address] [place] [address] PCP - General Family Medicine 05/17/24 Monster Calvillo NP [address] [place] [address] Nurse Practitioner Family Medicine 05/17/24 Inspector And Tester Relationship Specialty Start Date End Date Wesley Long MD [address] [place] [address] PCP - General Family Medicine 05/17/24 Monster Calvillo NP [address] [place] [address] Nurse Practitioner Family Medicine 05/17/24 Inspector And Tester Relationship Specialty Start Date End Date Shaikh Denis MD [address] [place] [address] PCP - General Internal Medicine 10/17/23 Inspector And Tester Relationship Specialty Start Date End Date Shaikh Denis MD [address] [place] [address] PCP - General Internal Medicine 10/17/23 Inspector And Tester Relationship Specialty Start Date End Date Shaikh Denis MD [address] [place] [address] PCP - General Internal Medicine 10/17/23 Inspector And Tester Relationship Specialty Start Date End Date Wesley Long MD [address] [place] [address] PCP - General Family Medicine 05/17/24 Monster Calvillo NP [address] [place] [address] Nurse Practitioner Family Medicine 05/17/24 Inspector And Tester Relationship Specialty Start Date End Date Wesley Long MD [address] [place] [address] PCP - General Family Medicine 05/17/24 Monster Calvillo NP [address] [place] [address] Nurse Practitioner Family Medicine 05/17/24 Inspector And Tester Relationship Specialty Start Date End Date Wesley Long MD [address] [place] [address] PCP - General Family Medicine 05/17/24 Monster Calvillo NP [address] [place] [address] Nurse Practitioner Family Medicine 05/17/24 Inspector And Tester Relationship Specialty Start Date End Date Wesley Long MD [address] [place] [address] PCP - General Family Medicine 05/17/24 Monster Calvillo NP [address] [place] [address] Nurse Practitioner Family Medicine 05/17/24 Inspector And Tester Relationship Specialty Start Date End Date Wesley Long MD [address] [place] [address] PCP - General Family Medicine 05/17/24 Monster Calvillo NP [address] [place] [address] Nurse Practitioner Family Medicine 05/17/24 Inspector And Tester Relationship Specialty Start Date End Date Renny Hansen MD [address] [place] [address] [place] [address] PCP - General Internal Medicine 09/19/24 Team [...] September 25, 2024 End: September 25, 2024 Inspector And Tester Relationship Specialty Start Date End Date Renny Hansen MD [address] [facility] 110 [place] [address] PCP - General Internal Medicine 09/19/24 Inspector And Tester Relationship Specialty Start Date End Date Renny Hansen MD [address] [facility] 110 [place] [address] PCP - General Internal Medicine 09/19/24 Inspector And Tester Relationship Specialty Start Date End Date Renny Hansen MD [address] [facility] 110 [place] [address] PCP - General Internal Medicine 09/19/24 Inspector And Tester Relationship Specialty Start Date End Date Renny Hansen MD [address] [facility] 110 [place] [address] PCP - General Internal Medicine 09/19/24 Team [...] October 16, 2024 End: October 16, 2024 Inspector And Tester Relationship Specialty Start Date End Date Renny Hansen MD [address] [facility] 110 [place] [address] PCP - General Internal Medicine 09/19/24 Inspector And Tester Relationship Specialty Start Date End Date Renny Hansen MD [address] [facility] 110 [place] [address] PCP - General Internal Medicine 09/19/24 Team [...] [place] APRN Attending Provider Active Start: October Inspector And Tester Relationship Specialty Start Date End Date Renny Hansen MD [address] [facility] 110 [place] [address] PCP - General Internal Medicine 09/19/24 Renny Hansen MD [address] [facility] 110 [place] [address] PCP - Medical [place] 09/12/2409/11 Cindi Jenkins LSW Wash House Worker Family Medicine 11/06/24 Inspector And Tester Relationship Specialty Start Date End Date Renny Hansen MD [address] [facility] 110 [place] [address] PCP - General Internal Medicine 09/19/24 Renny Hansen MD [address] [facility] [address] [place] [address] PCP - Medical [place] 09/12/2409/11 Cindi Jenkins, [facility] Wash House Worker Family Medicine 11/06/24 Inspector And Tester Relationship Specialty Start Date End Date Renny Hansen MD [address] [facility] [address] [place] [address] PCP - General Internal Medicine 09/19/24 Renny Hansen MD [address] [place] [address] [place] [address] PCP - Medical [place] 09/12/2409/11 Cindi Jenkins, [facility] Wash House Worker Family Medicine 11/06/24 Inspector And Tester Relationship Specialty Start Date End Date Renny Hansen MD [address] [place] [address] [place] [address] PCP - General Internal Medicine 09/19/24 Renny Hansen MD [address] [place] [address] [place] [address] PCP - Medical [place] 09/12/2409/11 Lisa Ramirez LPN 12/05/24 Inspector And Tester Relationship Specialty Start Date End Date Renny Hansen MD [address] [place] [address] [place] [address] PCP - General Internal Medicine 09/19/24 Renny Hansen MD [address] [place] [address] [place] [address] PCP - Medical [place] 09/12/2409/11 Lisa Ramirez LPN 12/05/24 Inspector And Tester Relationship Specialty Start Date End Date Renny Hansen MD [address] [place] [address] [place] [address] PCP - General Internal Medicine 09/19/24 Renny Hansen MD [address] [place] [address] [place] [address] PCP - Medical [place] 09/12/2409/11 Lisa Ramirez LPN 12/05/24 Inspector And Tester Relationship Specialty Start Date End Date Renny Hansen MD [address] [place] [address] [place] [address] PCP - General Internal Medicine 09/19/24 Renny Hansen MD [address] [place] [address] [place] [address] PCP - Medical [place] 09/12/2409/11 Lisa Ramirez LPN 12/05/24 Inspector And Tester Relationship Specialty Start Date End Date Renny Hansen MD [address] [place] [address] [place] [address] PCP - General Internal Medicine 09/19/24 Renny Hansen MD [address] [place] [address] [place] [address] PCP - Medical [place] 09/12/2409/11 Lisa Ramirez LPN 12/05/24 Inspector And Tester Relationship Specialty Start Date End Date Renny Hansen MD [address] [place] [address] [place] [address] PCP - General Internal Medicine 09/19/24 Renny Hansen MD [address] [place] [address] [place] [address] PCP - Medical [place] 09/12/2409/11 Lsia Ramirez LPN [address] [place] [address] [place] [address] 12/05/24 Inspector And Tester Relationship Specialty Start Date End Date Renny Hansen MD [address] [place] [address] [place] [address] PCP - General Internal Medicine 09/19/24 Renny Hansen MD [address] [place] [address] [place] [address] PCP - Medical [place] 09/12/2409/11 Lisa Ramirez LPN [address] [place] [address] [place] [address] 12/05/24 Inspector And Tester Relationship Specialty Start Date End Date Renny Hansen MD [address] [place] [address] [place] [address] PCP - General Internal Medicine 09/19/24 Renny Hansen MD [address] [place] [address] [place] [address] PCP - Medical [place] 09/12/2409/11 Lisa Ramirez LPN [address] [place] [address] [place] [address] 12/05/24 Inspector And Tester Relationship Specialty Start Date End Date Renny Hansen MD [address] [place] [address] [place] [address] PCP - General Internal Medicine 09/19/24 Renny Hansen MD [address] [place] [address] [place] [address] PCP - Medical [facility] 09/12/2409/11 Lisa Ramirez LPN [address] [place] [address] [place] [address] 12/05/24 Inspector And Tester Relationship Specialty Start Date End Date Renny Hansen MD [address] [place] [address] PCP - General Internal Medicine 09/19/24 Renny Hansen MD [address] [place] [address] [place] [address] PCP - Medical [facility] 09/12/2409/11 Lisa Ramirez LPN [address] [place] [address] [place] [address] 12/05/24 Team Status: Inactive Member Role Status Dates Renny Hansen II MD Primary Care Provider Active Start: May 03, 2025 End: May 03, 2025 GWYN BuchananC Attending Provider Active Start: May 03, 2025 [...] or prosecute any alcohol or drug abuse patient.Doctors HospitalIn the event this information is protected by the [facility] Confidentiality of Alcohol and Drug Abuse Patient Records regulations: The Federal rules restrict any use of the information to criminally investigate or prosecute any alcohol or drug abuse patient.Doctors HospitalIn the event this information is protected by the Federal Confidentiality of Alcohol and Drug Abuse Patient Records regulations: The Federal rules restrict any use of the information to criminally investigate or prosecute any alcohol or drug abuse patient.[facility] FOR RECORDS PERTAINING TO PATIENTS WHO [...] BE BASED ON THE PRIMARY CLINICAL RECORDS. [employer] [facility]. provides no warranty or guarantee of the accuracy or completeness of information in this document.
== END 2025-05-29 10:25 | disposition home or self-care (01) ==
LOC: PM 10:24
PROVIDERS: PCP Internal Medicine; Visit Provider Nurse Practitioner
DX: M46.1 Sacroiliitis, not elsewhere classified (principal); M48.062 Spinal stenosis, lumbar region with neurogenic claudication; M47.816 Spondylosis without myelopathy or radiculopathy, lumbar region; M25.512 Pain in left shoulder; Z79.891 Long term (current) use of opiate analgesic
CPT/HCPCS: G0463

== ENCOUNTER 2025-07-10 10:45 | Outpatient (OUT) | payer MEDICARE, SELFPAY ==
--- OUTSIDE RECORDS SUMMARY | 2025-07-05 11:45 | XMS_ITS | Encounter Summary ---
Author Organization [facility] Address [address] [place] [address] Care Team Providers Care Search Engine Marketing Strategist Name Role Phone Renny Hansen MD Primary Care Provider [phone] Renny Hansen MD Unavailable [phone] Lisa Ramirez LPN Unavailable Reason for Visit * ReasonCommentsURI Encounter Details DateTypeDepartmentCare Team (Latest Contact Info)Eseukfpatty36/24/2025 11:45 AM EDTOffice Visit [facility] [address] [place] [address] [place] [address] Renny Hansen MD [address] [facility] 110 [place], [place] [address] Bronchitis Social History Tobacco UseTypesPacks/DayYears UsedDateSmoking Tobacco: [id number] Started: 1968Passive Smoke Exposure: PastAlcohol UseStandard Drinks/WeekComments Yes0 (1 standard drink = 0.6 oz pure alcohol)[id number] Health Literacy AnswerDate RecordedHow often do you need to have someone help you when you read instructions, pamphlets, or other written material from your doctor or pharmacy? Never11/12/2024Humiliation, Afraid, Rape, and Kick questionnaireAnswerDate RecordedWithin the last year, have you been afraid of your partner or ex-partner?No08/30/2023Within the last year, have you been humiliated or emotionally abused in other ways by your partner or ex-partner?No08/30/2023 Within the last year, have you been kicked, hit, slapped, or otherwise physically hurt by your partner or ex-partner?No08/30/2023Within the last year, have you been raped or forced to have any kind of sexual activity by your part ner or ex-partner?No08/30/2023Social Connection and Isolation PanelAnswerDate RecordedIn a typical week, how many times do you talk on the phone with family, friends, or neighbors?Twice a week11/12/2024How often do you get together with friends or relatives?Twice a week11/12/2024How often do you attend zoroastrian or hinduism services?Patient mecitnlz36/03/2025Do you belong to any clubs or organizations such as zoroastrian groups, unions, [employer] or athletic groups, or school groups?No11/12/2024How often do you attend meetings of the clubs or organizations you belong to?Patient wkygizwz18/03/2025re you , , , , never , or living with a partner?Living with partner 11/12/2024UDIT-CAnswerDate RecordedQ1: How often do you have a drink containing alcohol?Patient inwggdbh13/29/2025Q2: How many drinks containing alcohol do you have on a typical day when you are drinking?Patient /29/2025Q3: How often do you have six or more drinks on one occasion?Patient uenianyh91/29/2025 Overall Financial Resource Strain (CARDIA)AnswerDate RecordedHow hard is it for you to pay for the very basics like food, housing, medical care, and heating?Not hard at all11/12/2024PHQ-2AnswerDate RecordedPatient Health Questionnaire-2 Rbhnz052Finval[facility] [place] of Occupational Health - Occupational Stress QuestionnaireAnswerDate RecordedDo you feel stress - tense, restless, nervous, or anxious, or unable to sleep at night because yourmind is troubled all the time - these days?To some kzgyji8811/12/2024Exercise Vital SignAnswerDate Recorded On average, how many days per week do you engage in moderate to strenuous exercise (like a brisk walk)?0 days11/12/2024Minutes of Exercise per SessionNot on file11/12/2024Hunger Vital SignAnswerDate RecordedWithin the past 12 months, you worried that your food would run out before you got the money to buymore. Never true11/12/2024Within the past 12 months, the food you bought just didn't last and you didn't have money to get more.Never true11/12/2024PRAPARE - TransportationAnswerDate RecordedIn the past 12 months, has lack of transportation kept you from medical appointments or from getting medications?No 11/12/2024In the past 12 months, has lack of transportation kept you from meetings, work, or from getting things needed for daily living?No11/12/2024 Housing Stability Vital SignAnswerDate RecordedIn the last 12 months, was there a time when you were not able to pay the mortgage or rent on time?No08/30/2023 Number of Places Lived in the Last YearNot on file08/30/2023In the last 12 months, was there a time when you did not have a steady place to sleep or slept [facility] ([facility])?Patient hkkrzmw1108/30/2023Housing Stability Vital SignAnswerDate RecordedIn the last 12 months, was there a time when you were not able to pay the mortgage or rent on time?No11/12/2024In the past 12 months, how many times have you moved where you were living?t any time in the past 12 months, were you homeless or living in a [facility] (including now)?No 11/12/2024CommentsUnknownSex and Gender InformationValueDate RecordedSex Assigned at BirthNot on fileLegal VdyUkzqyg54/15/2023 6:35 PM EDTGender Identity Not on fileSexual OrientationNot on filedocumented as of this encounter Last Filed Vital Signs Vital SignReadingTime TakenCommentsBlood Dfaoraja749/7007/05/2025 12:39 PM EDT Pulse--Temperature--Respiratory Rate--Oxygen Saturation--Inhaled Oxygen Concentration--Nishef118 kg (225 lb)07/05/2025 12:39 PM KLCVsnato560.8 cm (4' 9 )07/05/2025 12:39 PM EDTBody Mass Index48.6910 12:39 PM EDTdocumented in this encounter Progress Notes * Renny Hansen MD - 07/05/2025 11:45 AM EDT Images from the original note were not included. Subjective Patient ID: Breann Starks is a 79 y.o. female who presents for URI. Upper Respiratory Infection Patient complains of symptoms of a URI. Symptoms include nasal congestion, productive cough and sore throat. Onset of symptoms was 1 week ago, and has been gradually worsening since that time. URI Current Outpatient Medications on File Prior to [...] by mouth every 12 (twelve) hours HYDROcodone-acetaminophen (War) 5-325 MG tablet Take 1 tablet by [...] mg) by mouth Daily 100 capsule 3 Respiratory Therapy Supplies (Nebulizer/Tubing/Mouthpiece) kit 1 each See administration instructions Use daily as needed per instructions on medication. 1 kit 0 rOPINIRole (Requip) 1 MG tablet Take 1 tablet (1 mg) by mouth at bedtime 30 tablet 11 saccharomyces boulardii (Florastor) 250 MG capsule Take 250 mg by mouth in the morning and 250 mg before bedtime. spironolactone (Aldactone) 50 MG tablet Take 50 mg by mouth in the morning. verapamil SR (Calan SR) 180 MG ER tablet Take 360 mg by mouth in the morning. [DISCONTINUED] penicillin v potassium (Veetid) 500 MG tablet Take 500 mg by mouth in the morning and 500 mg at noon and 500 mg in the evening and 500 mg before bedtime. No current facility-administered medications on [...] (HCC) 10/17/2023 Coronary artery disease Diastolic dysfunction Diverticulosis 06/06/2025 Essential hypertension History of tobacco abuse Nonalcoholic steatohepatitis (LOJA) Obstructive sleep apnea Osteoarthritis Paroxysmal atrial fibrillation (HCC) Peptic ulcer disease Secondary pulmonary arterial hypertension (HCC) Sick sinus syndrome (HCC) Spinal stenosis, lumbar region with neurogenic claudication SVT (supraventricular tachycardia) (HCC) URTI (acute upper respiratory infection) Vertigo Vitamin D deficiency Past Surgical History: Procedure Laterality Date APPENDECTOMY COLONOSCOPY 06/06/2025 EGD 06/06/2025 With Biopsy HYSTERECTOMY INSERT / REPLACE / REMOVE PACEMAKER OTHER SURGICAL HISTORY Abalation REVERSE TOTAL SHOULDER ARTHROPLASTY Left 12/29/2021 DR AMIN ROTATOR CUFF REPAIR Right SHOULDER ARTHROSCOPY Bilateral (L) , (R) x3 TOTAL KNEE ARTHROPLASTY Bilateral TRIGGER FINGER RELEASE Left RF Visit Vitals BP 126/70 Ht 4' 9 Wt 225 lb BMI 48.69 kg/m?? Smoking Status Former BSA 2.03 m?? Review of Systems Objective Physical Exam Constitutional: General: She is not in acute distress. Appearance: Normal appearance. She is well-developed. HENT: Head: Normocephalic and atraumatic. Right Ear: Tympanic membrane and ear canal normal. Left Ear: Tympanic membrane and ear canal normal. Nose: Congestion present. Mouth/Throat: Mouth: Mucous membranes are moist. Eyes: General: No scleral icterus. Conjunctiva/sclera: Conjunctivae normal. Cardiovascular: Rate and Rhythm: Normal rate and regular rhythm. Heart sounds: Normal heart sounds. No murmur heard. Pulmonary: Effort: No respiratory distress. Breath sounds: Examination of the right-middle field reveals wheezing. Examination of the left-middle field reveals wheezing. Wheezing and rhonchi present. No rales. Lymphadenopathy: Cervical: No cervical adenopathy. Skin: General: Skin is warm and dry. Neurological: General: No focal deficit present. Mental Status: She is alert and oriented to person, place, and time. Psychiatric: Mood and Affect: Mood normal. Behavior: Behavior normal. Assessment/Plan Diagnoses and all orders for this visit: Bronchitis - triamcinolone acetonide (Kenalog-40) injection 40 mg - azithromycin (Zithromax) 250 MG tablet; Take 2 tablets (500 mg) by mouth Daily for 1 day, THEN 1 tablet (250 mg) Daily for 4 days. - promethazine-codeine (Phenergan W/Codeine) 6.25-10 MG/5ML syrup; Take 5 mL by mouth every 6 (six)hours if needed for cough for up to 10 days No follow-ups on file. documented in this encounter Plan of Treatment DateTypeDepartmentCare Team (Latest Contact Info)Yxjwfqhxbsc35/06/2025 11:30 AM ESTOffice Visit [facility] [place] [facility] [address] [facility] 110 [place] [address] Renny Hansen MD [address] [facility] 110 [place] [address] documented as of this encounter Visit Diagnoses Diagnosis Bronchitis Bronchitis, not specified as acute or chronic documented in this encounter Additional Health Concerns AssessmentNoted TimePHQ-9 Depression Total Score: 2:00 PM EST documented as of this encounter Care Teams Team MemberRelationshipSpecialtyStart DateEnd Date Renny Hansen MD [address] [place] [address] [place] [address] [facility] - [facility]24 Renny Hansen MD [address] [place] [address] PCP - Medical [facility]09/12/2511 Lisa Ramirez LPN [address] [address] 12/05/24documented as of this encounter
--- OUTSIDE RECORDS SUMMARY | 2025-07-10 10:50 | XMS_ITS | Encounter Summary ---
Author Organization [facility] Address [address] [facility] [place] [address] Care Team Providers Care Home Mortgage Disclosure Act Specialist Name Role Phone Renny Hansen MD Primary Care Provider [phone] Renny Hansen MD Unavailable [phone] Lisa Ramirez LPN Unavailable Encounter Details DateTypeDepartmentCare Team (Latest Contact Info)Dmpvtidkvjn90/24/2025amboo flowsheet [facility] [place] [facility] [address] [place] [address] Renny Hansen MD [address] [facility] 110 [place] [address] Social History Tobacco UseTypesPacks/DayYears UsedDateSmoking Tobacco: JtgsmlGfmaefidof635 Started: 1965Passive Smoke Exposure: PastAlcohol UseStandard Drinks/WeekComments Yes0 (1 standard drink = 0.6 oz pure alcohol)[id number] Health Literacy AnswerDate RecordedHow often do you [...] relatives?Twice a week11/12/2024How often do you attend islam or moravian services?Patient zwuqvccy64/03/2025Do you belong to any clubs or organizations such as islam groups, unions, fraShareable Ink or athletic groups, or school groups?No11/12/2024How often do you attend meetings of the clubs or organizations you belong to?Patient /03/2025re you , , , , never , or living with a partner?Living with partner 11/12/2024UDIT-CAnswerDate RecordedQ1: How often do you have a drink containing alcohol?Patient isbfyyxm11/29/2025Q2: How many drinks containing alcohol do you have on a typical day when you are drinking?Patient /29/2025Q3: How often do you have six or more drinks on one occasion?Patient aynrmqtn43/29/2025 Overall Financial Resource Strain (CARDIA)AnswerDate RecordedHow hard is it for you to pay for the very basics like food, housing, medical care, and heating?Not hard at all11/12/2024PHQ-2AnswerDate RecordedPatient Health Questionnaire-2 Lafbu310[facility] [place] of Occupational Health - Occupational Stress QuestionnaireAnswerDate RecordedDo you feel stress - tense, restless, nervous, or anxious, or unable to sleep at night because yourmind is troubled all the time - these days?To some bslret1311/12/2024Exercise Vital SignAnswerDate Recorded On average, how many [...] steady place to sleep or slept in [facility] (including now)?Patient dbwqlkg4208/30/2023Housing Stability Vital SignAnswerDate RecordedIn the last 12 months, was there a time when you were not able to pay the mortgage or rent on time?No11/12/2024In the past 12 months, how many times have you moved where you were living?t any time in the past 12 months, were you homeless or living in a senior care (including now)?No 11/12/2024CommentsUnknownSex and Gender InformationValueDate RecordedSex Assigned at BirthNot on fileLegal GenYnjial50/15/2023 6:35 PM EDTGender Identity Not on fileSexual OrientationNot on filedocumented as of this encounter Plan of Treatment DateTypeDepartmentCare Team (Latest Contact Info)Dxqtttoegso97/06/2025 11:30 AM ESTOffice Visit [facility] [place] [facility] [address] [facility] 110 [place] [id number] Renny Hansen MD [address] [facility] 110 [place] [address] documented as of this encounter Visit Diagnoses Not on filedocumented in this encounter Additional Health Concerns AssessmentNoted TimePHQ-9 Depression Total Score: 2:00 PM EST documented as of this encounter Care Teams Team MemberRelationshipSpecialtyStart DateEnd Renny Hansen MD [address] [facility] 110 [place] [address] PCP - GeneralInternal Medicine09/19/24 Renny Hnasen MD [address] [facility] 110 [place] [address] PCP - Medical [place]09/12/2511 Lisa Ramirez LPN [address] [facility] 110 [place] [address] 12/05/24documented as of this encounter
--- OUTSIDE RECORDS SUMMARY | 2025-07-10 10:50 | XMS_ITS | Encounter Summary ---
Author Organization [facility] Address [address] [place] [address] Care Team Providers Care Solar Sales Consultant Name Role Phone Renny Hansen MD Primary Care Provider [phone] Renyn Hansen MD Unavailable [phone] Lisa Ramirez LPN Unavailable Encounter Details DateTypeDepartmentCare Team (Latest Contact Info)Abwbekwcski80/24/2025Travel Social History Tobacco UseTypesPacks/DayYears UsedDateSmoking Tobacco: BmzazvXbvkcguipw773 Started: 1967Passive Smoke Exposure: PastAlcohol UseStandard Drinks/WeekComments Yes0 (1 standard drink = 0.6 oz pure alcohol)[id number] Health Literacy AnswerDate RecordedHow often do you [...] relatives?Twice a week11/12/2024How often do you attend druze or yazidi services?Patient zybfwcqb44/03/2025Do you belong to any clubs or organizations such as druze groups, unions, fraternal or athletic groups, or school groups?No11/12/2024How often do you attend meetings of the clubs or organizations you belong to?Patient nmjkluxg92/03/2025re you , , , , never , or living with a partner?Living with partner 11/12/2024UDIT-CAnswerDate RecordedQ1: How often do you have a drink containing alcohol?Patient hpxstaze04/29/2025Q2: How many drinks containing alcohol do you have on a typical day when you are drinking?Patient oskkdyno33/29/2025Q3: How often do you have six or more drinks on one occasion?Patient cgwrnyqd75/29/2025 Overall Financial Resource Strain (CARDIA)AnswerDate RecordedHow hard is it for you to pay for the very basics like food, housing, medical care, and heating?Not hard at all11/12/2024PHQ-2AnswerDate RecordedPatient Health Questionnaire-2 Rboce941Finlifepoint hospitals [place] [facility] - Occupational Stress QuestionnaireAnswerDate RecordedDo you feel stress - tense, restless, nervous, or anxious, or unable to sleep at night because yourmind is troubled all the time - these days?To some wyaxnv0611/12/2024Exercise Vital SignAnswerDate Recorded On average, how many [...] steady place to sleep or slept in ashelter (including now)?Patient yspxgaq2908/30/2023Housing Stability Vital SignAnswerDate RecordedIn the last 12 months, was there a time when you were not able to pay the mortgage or rent on time?No11/12/2024In the past 12 months, how many times have you moved where you were living?t any time in the past 12 months, were you homeless or living in a fpc (including now)?No 11/12/2024CommentsUnknownSex and Gender InformationValueDate RecordedSex Assigned at BirthNot on fileLegal HidTwqyyy47/15/2023 6:35 PM EDTGender Identity Not on fileSexual OrientationNot on filedocumented as of this encounter Plan of Treatment DateTypeDepartmentCare Team (Latest Contact Info)Ocrfabxanvx03/06/2025 11:30 AM ESTOffice Visit [facility] [address] [place] [address] Renny Hansen MD [address] [place] [address] documented as of this encounter Visit Diagnoses Not on filedocumented in this encounter Additional Health Concerns AssessmentNoted TimePHQ-9 Depression Total Score: 2:00 PM EST documented as of this encounter Care Teams Team MemberRelationshipSpecialtyStart DateEnd Date Renny Hansen MD [address] [facility] [address] [place] [address] [facility] - [facility] Renny Hansen MD [address] [facility] [address] [place] [address] PCP - Medical [facility]09/12/2511 Lisa Ramirez LPN [address] [address] 12/05/24documented as of this encounter
--- OUTSIDE RECORDS SUMMARY | 2025-07-10 10:50 | XMS_ITS | Clinical Summary ---
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 Name Role Phone Renny Hansen MD Primary Care Provider [phone] Renny Hansen MD Unavailable [phone] Lisa Ramirez LPN Unavailable Allergies Active AllergyReactionsCriticalityNoted XvbjAqftsixoHvxmgyhSkbtHjb21/05/2024 Kiywan8011/16/2023 Other Reaction(s): HEART ISSUES Wound Dressing WzjvbeqmRqjiNyd71/08/2024 Medications MedicationSigDispense QuantityRefillsLast FilledStart DateEnd DateStatus Multiple Vitamins-Minerals (CENTRUM SILVER 50+WOMEN PO) Take 1 tablet by mouth in the morning.Active flecainide (Tambocor) 100 MG tablet Take 100 mg by mouth every 12 (twelve) hours03/08/2024ctive baclofen (Lioresal) 10 MG tablet Take 10 mg by mouth in the morning and 10 mg in the evening and 10 mg before bedtime.06/21/2024ctive HYDROcodone-acetaminophen ([place]) 5-325 MG tablet Take 1 tablet by mouth in the morning and 1 tablet in the evening and 1 tablet before bedtime.06/21/2024ctive cholecalciferol (Natural Vitamin D-3) 5,000 Units tablet Indications:Vitamin D deficiencyTake 1 tablet (5,000 Units) by mouth Daily 90 tablet ctive spironolactone (Aldactone) 50 MG tablet Take 50 mg by mouth in the morning.09/24/2024tive verapamil SR (Calan SR) 180 MG ER tablet Take 360 mg by mouth in the morning.5Active omeprazole (PriLOSEC) [address] capsule Indications:Peptic ulcer, site unspecified, unspecified as acute or chronic, without hemorrhage or perforation,Peptic ulcerTake 1 capsule (40 mg) by mouth Daily 100 capsule 5Active apixaban (Eliquis) 5 MG tablet Indications:Persistent atrial fibrillation (HCC)Take 1 tablet (5 mg) by mouth in the morning and 1 tablet (5 mg) before bedtime. 180 tablet 5Active saccharomyces boulardii (Florastor) 250 MG capsule Take 250 mg by mouth in the morning and 250 mg before bedtime.Active ipratropium-albuterol (Duo-Neb) 0.5-2.5 mg/3 mL nebulizer solution Indications:Chronic obstructive pulmonary disease, unspecified COPD type (HCC) Take 3 mL by nebulization in the morning and 3 mL at noon and 3 mL in the evening and 3 mL before bedtime. 150 mL 5Active Respiratory Therapy Supplies (Nebulizer/Tubing/Mouthpiece) kit Indications:Chronic obstructive pulmonary disease, unspecified COPD type (HCC)1 each See administration instructions Use daily as needed per instructions on medication. 1 kit 5Active rOPINIRole (Requip) 1 MG tablet Indications:Restless Leg SyndromeTake 1 tablet (1 mg) by mouth at bedtime 30 tablet 110506Active azithromycin (Zithromax) 250 MG tablet Indications:BronchitisTake 2 tablets (500 mg) by mouth Daily for 1 day, THEN 1 tablet (250 mg) Daily for 4 days. 6 tablet /5Active promethazine-codeine (Phenergan W/Codeine) 6.25-10 MG/5ML syrup Indications:BronchitisTake 5 mL by mouth every 6 (six) hours if needed for cough for up to 10 days 240 mL 5Active penicillin v potassium (Veetid) 500 MG tablet Take 500 mg by mouth in the morning and 500 mg at noon and 500 mg in the evening and 500 mg before bedtime.07/05/2025DiscontinuedHospital, Clinic, or Other Facility Administered MedicationOrdered DoseRouteFrequencyStart DateEnd Date Status triamcinolone acetonide (Kenalog-40) injection 40 mg Indications:Rjhjogobkm46 doAUXqly07/24/2025Active Active Problems ProblemNoted DateDiagnosed Date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02/22/2025HF (congestive heart failure)09/24/2024History of ulcer eojmnwg5309/24/20240742Eijoldnpijbtns58/13/2025Positive fecal occult blood test 09/24/2024Gastroesophageal reflux disease without colqwyredti22/05/2024 Obstructive sleep apnea gfhpofen95/06/2024ulmonary /06/2024 Degenerative disc disease, upjsiywk83/24/2024bnormal CT scan, neck07/05/2024 Enlarged lymph nodes in ojoxmk07Sigmoid ezbxieavuxvtot14/24/2024nemia due to multiple faofxdwirq60/24/2024Irritable bowel wcdwhwet02/24/2024Iron deficiency anemia due to chronic blood loss03/12/2024 Assessment & Plan (04/11/2024 2:11 PM EDT): [...] omeprazole. Acute on chronic diastolic (congestive) heart rfofxof0402/27/2024 Assessment & Plan (06/02/2024 10:19 AM EDT): [...] to assess cardiac structure. Cardiac pacemaker in situ4Diastolic buwcuietcsd75/09/2024rthritis of right acromioclavicular joint11/07/2023losed fracture of fifth metatarsal bone 11/07/2023ontusion of left nmyilzsy65/26/2024Impingement syndrome of right zfxofnsd68/26/2024Sick sinus syndrome (I49.5)11/07/2023 Assessment & Plan (11/07/2023 3:19 PM EST): S/p PPM Hiatal milkea2910/17/2023Shoulder pain10/17/2023 Assessment & Plan (04/11/2024 2:10 PM EDT): [...] due to anemia, concurrent use of DOACs. Tylenoldoes not help. Using 5 mg oxycodone as [...] place. MRI ordered, awaiting approval. Will order [place] as needed as it helped with pain. [...] narcotics/risk of tolerance/addiction. Acute pain of left knee09/06/2023rthritis of left shoulder pxxbab6109/06/2023 Peptic ulcer afsnyjl7309/06/2023hronic bilateral low back pain with sciatica 09/06/2023 Assessment & Plan (12/29/2023 2:38 PM EDT): [...] for her symptoms. Medicare annual wellness visit, enxrfooroa47/26/2023 Assessment & Plan (09/06/2023 2:49 PM EST): Patient here for medicare wellness. Doing well overall other than chronic back pain. Upto date on Colon Cancer screening, breast cancer screening. Reviewed medications, counseled on lifestyle measures, importance of compliance. Cervical dayibcoiwwdwn78/20/2023 Overview (07/24/2024): C6 Wlghmnzhxnpv12/20/2023Osteoarthritis of both knees03/01/2023Osteoarthritis of lumbar spine03/01/2023Steatosis of liver03/01/2023 Overview (09/06/2023): non alcoholic non alcoholic Spinal jkdkcufr34/20/2023astric ulcer03/01/2023Venous bkryylbdfvqvd63/20/2023 Vitamin D zmsuhfneoo70/20/2023ersistent atrial qmcxnwyhtvkp67/09/2023 Overview (09/06/2023): Last Assessment & Plan: -device check in may 2022 <1% AF, had 1 mode switch which lasted 6 seconds -will have her get device check to assess AF burden -WME5PT6-DYIa 3 -Continue Xarelto 20 mg daily, continue propafenone to 25 mg 3 times a day Assessment & Plan (12/29/2023 2:36 PM EDT): S/P PPM. Follows [facility] cardiology. On Xarelto for stroke px. Also uses Flecainide, Verapamil. Assessment & Plan (11/07/2023 3:16 PM EST): S/P PPM. Follows [facility] cardiology. On Xarelto for stroke px. Also uses Flecainide, Verapamil. Assessment & Plan (09/06/2023 2:46 PM EST): S/P PPM. Follows [facility] cardiology. On Xarelto for stroke px. Sinus node vsvfsojlrta27/26/2021 Overview (09/06/2023): Last Assessment & Plan: - S/p PPM [employer] -We will have her scheduled for device check Tymsjyc6312/29/2012 Overview (09/06/2023): Last Assessment & Plan: Obesity [...] and educated on its side effects. Essential ndvacvqdnqgr55/03/2012 Overview (09/06/2023): Last Assessment & Plan: Hypertension [...] or persistently elevated BP. Chronic obstructive lung fhaqexw4501/12/2012 Assessment & Plan (12/29/2023 2:36 PM EDT): Does not take anything for it. Fairly well controlled. Assessment & Plan (11/07/2023 3:17 PM EST): Does not take anything for it. Fairly well controlled. Had recent exacerbation with URTI - symptomsimproved now. Coronary emiigjweuknewxq70/02/2012 Overview (09/06/2023): Last Assessment & Plan: Coronary artery disease is stable -no CP or LEA -last cath 2010, mild disease no PCI / stent -continue medications Edema01/12/2012Paroxysmal supraventricular gwpjufpjruk14/02/2012 Overview (09/06/2023): SHORT IMPROVED. Disorder of bursae of shoulder avpyxx6901/12/2012 Resolved Problems ProblemNoted DateDiagnosed DateResolved DateCOPD mdzavznukike32/05/2024 07/24/2024 Assessment & Plan (10/17/2023 10:59 AM [...] - to make sure no Pneumonia Encounters DateTypeDepartmentCare TeqvZijnefjvwhj08/24/2025 11:45 AM EDTOffice Visit [facility] [address] [place] [address] Renny Hansen MD Mdskavmnag85/24/2025amboo flowsheet [facility] [address] [place] [address] Renny Hansen MD 07/05/20255663Kjceuv54/25/2025bstract [facility] [address] [place] [address] Renny Hansen MD 06/06/2025bstract [facility] [address] [place] [address] Renny Hansen MD 06/06/2025bstract [facility] [address] [place] [address] Renny Hansen MD 06/03/2025Patient Outreach [facility] [address] [place] [address] Lisa Ramirez LPN 05/16/2025 11:00 AM EDTOffice Visit [facility] [address] [place] [address] Renny Hansen MD RLS (restless legs syndrome)05/16/2025amboo flowsheet [facility] [address] [place] [address] Renny Hansen MD 05/16/20258581Rdqyqq86/27/2025bstract [facility] [address] [place] [address] Renny Hansen MD 05/07/2025bstract [facility] [address] [place] [address] Renny Hansen MD 05/06/2025bstract [facility] [address] [place] [address] Renny Hansen MD 04/25/2025bstract [facility] [address] [place] [address] Renny Hansen MD 04/24/2025 9:30 AM EDTOffice Visit [facility] [address] [place] [address] Shannon Robles, ELBERT Hematuria, unspecified type04/24/2025External Result Encounter [facility] External Department Unsolicited Shannon Robles NP 04/24/2025linisync Result Encounter [facility] External Department Unsolicited Provider, Generic External Data 04/24/2025amboo flowsheet [facility] [address] [place] [address] Shannon Robles NP 04/24/20255954Qomzsl70/07/2025 11:00 AM EDTOffice Visit [facility] [address] [place] [address] Eleanor Leahy PA Chronic obstructive pulmonary disease, unspecified COPD type (HCC) (Primary Dx) 04/18/2025amboo flowsheet [facility] [address] [place] [address] Eleanor Leahy PA 04/18/20258743Gzirxo78/06/2025Telephone [facility] [address] [place] [address] Renny Hansen MD 04/15/2025Patient Outreach [facility] [address] [place] [address] Lisa Ramirez LPN 04/15/2025Telephone [facility] [address] [facility] [address] [place] [phone] Renny Hansen MD from Last 3 Months Immunizations ImmunizationAdministration DatesNext DueInfluenza, High Dose Seasonal, Preservative Free08/06/2019Influenza, High-dose Seasonal, Quadrivalent, Preservative Free09/19/2024Influenza, Seasonal, Quadrivalent, Adjuvanted 08/25/2023,07/08/2022,08/20/2021,08/04/2020Influenza, Ddbdrnekcwa96/14/2023, 07/08/2022,08/20/2021,08/04/2020,08/06/2019,07/05/2017,06/29/2016,06/25/2015, 06/12/2015,07/12/2014,08/07/2013Influenza, injectable, xgjymanrdmse88/14/2015, 07/12/2014Influenza, seasonal, /26/2013Influenza, seasonal, intradermal, preservative free06/12/2015Influenza, trivalent, adjuvanted 07/05/2017,06/29/2016Pneumococcal Conjugate PCV 13110/04/2019,07/05/2017 Pneumococcal Polysaccharide CQRT1417/09/2021RSV, recombinant, protein subunit RSVpreF, adjuvant reconstitu, 120mcg/0.5mL, PF (Arexvy)08/25/2023 Family History * Patient is adopted RelationNameStatusCommentsFatherDeceasedMotherDeceased Social History Tobacco UseTypesPacks/DayYears UsedDateSmoking Tobacco: MsnfayUdzgqjgdng959 Started: 1967Passive Smoke Exposure: Past Tobacco Cessation:Counseling Given: Yes Alcohol UseStandard Drinks/WeekCommentsYes0 (1 standard drink = 0.6 oz pure alcohol)KZILKKWIZZRT4255 Health LiteracyAnswerDate RecordedHow often do you need to have someone help you when you read instructions, pamphlets, or other written material from your doctor or pharmacy?Never11/12/2024Humiliation, Afraid, Rape, and Kick questionnaireAnswerDate RecordedWithin the last year, have you been afraid of your partner or ex-partner?No08/30/2023Within the last year, have you been humiliated or emotionally abused in other ways by your partner or ex-partner?No08/30/2023Within the last year, have you been kicked, hit, slapped, or otherwise physically hurt by your partner or ex-partner?No08/30/2023Within the last year, have you been raped or forced to have any kind of sexual activity by your partner or ex-partner?No08/30/2023Social Connection and Isolation Panel AnswerDate RecordedIn a typical week, how many times do you talk on the phone with family, friends, or neighbors?Twice a week11/12/2024How often do you get together with friends or relatives?Twice a week11/12/2024How often do you attend faith or uatsdin services?Patient jpjbhglo08/03/2025Do you belong to any clubs or organizations such as faith groups, unions, fraternal or athletic anastacio ups, or school groups?No11/12/2024How often do you attend meetings of the clubs or organizations you belong to?Patient tykfxkcr37/03/2025re you , , , , never , or living with a partner?Living with omhdrnm7611/12/2024UDIT-CAnswerDate RecordedQ1: How often do you have a drink containing alcohol?Patient qfarpfsx82/29/2025Q2: How many drinks containing alcohol do you have on a typical day when you are drinking?Patient esqlqlld19/29/2025Q3: How often do you have six or more drinks on one occasion? Patient vocsbhqo62/29/2025Overall Financial Resource Strain (CARDIA)AnswerDate RecordedHow hard is it for you to pay for the very basics like food, housing, medical care, and heating?Not hard at all11/12/2024PHQ-2AnswerDate Recorded Patient Health Questionnaire-2 Bpdhh409Finamerican [facility] [place] of Occupational Health - Occupational Stress QuestionnaireAnswerDate RecordedDo you feel stress - tense, restless, nervous, or anxious, or unable to sleep at night because your mind is troubled all the time - these days?To some thjocn8111/12/2024Exercise Vital SignAnswerDate RecordedOn average, how many days per week do you engage in moderate to strenuous exercise (like a brisk walk)?0 days11/12/2024Minutes of Exercise per SessionNot on file11/12/2024Hunger Vital SignAnswerDate Recorded Within the past 12 months, you worried that your food would run out before you got the money to buymore.Never true11/12/2024Within the past 12 months, the food you bought just didn't last and you didn't have money to get more.Never true 11/12/2024PRAPARE - TransportationAnswerDate RecordedIn the past 12 months, has lack of transportation kept you from medical appointments or from getting medications?No11/12/2024In the past 12 months, has lack of transportation kept you from meetings, work, or from getting things needed for daily living?No 11/12/2024Housing Stability Vital SignAnswerDate RecordedIn the last 12 months, was there a time when you were not able to pay the mortgage or rent on time?No 08/30/2023Number of Places Lived in the Last YearNot on file08/30/2023In the last 12 months, was there a time when you did not have a steady place to sleep or slept in higdonelter (including now)?Patient igxkptq0808/30/2023Housing Stability Vital SignAnswerDate RecordedIn the last 12 months, was there a time when you were not able to pay the mortgage or rent on time?No11/12/2024In the past 12 months, how many times have you moved where you were living?t any time in the past 12 months, were you homeless or living in a long-term (including now)?No11/12/2024CommentsUnknownSex and Gender InformationValueDate RecordedSex Assigned at BirthNot on fileLegal DolJlqcwr57/15/2023 6:35 PM EDT Gender IdentityNot on fileSexual OrientationNot on file Last Filed Vital Signs Vital SignReadingTime TakenCommentsBlood Btbqpuno702/7010 12:39 PM EDT Oqdaw6535 10:58 AM VHFObgfzxvckby90.9 ??C (98.4 ??F)08/02/2024 10:51 AM ESTRespiratory Smhi607704/24/2025 9:41 AM EDTOxygen Kdcwjaeozz93%05/16/2025 10:58 AM EDTInhaled Oxygen Concentration--Gulmhb920 kg (225 lb)07/05/2025 12:39 PM EDT Mjlloi679.8 cm (4' 9 )07/05/2025 12:39 PM EDTBody Mass Index48.6907/05/2025 12:39 PM EDT Plan of Treatment DateTypeDepartmentCare Team (Latest Contact Info)Pejdybqxuqy32/06/2025 11:30 AM ESTOffice Visit [facility] [address] [facility] [address] [place] [address] Renny Hansen MD [address] [facility] [address] [place] [address] Health MaintenanceDue DateLast DoneCommentsInfluenza Vaccine (#1)05/13/2025 09/19/2024, 08/25/2023, 08/25/2023, Additional history existsMedicare Annual Wellness (AWV)6010/17/2024, 09/06/2023, 09/06/2023neumococcal Vaccine: 65+ EbndrWgvvefvin55/09/2021, 08/04/2020, 07/05/2017ColonoscopyDiscontinued 06/06/2025, 03/07/2024, 09/12/2017Colorectal Cancer ScreeningDiscontinuedCT ColonographyDiscontinuedFIT-DNADiscontinuedFITDiscontinuedFOBTDiscontinued SigmoidoscopyDiscontinued Procedures Procedure NamePriorityDate/TimeAssociated DiagnosisCommentsHM COLONOSCOPYRoutine 06/06/2025 FREE K+L LT CHAINS,QN,YQvxwowx11/13/2025 1:20 PM EDT PROTEIN ELECTRO.,HDfvuhcf98/13/2025 1:20 PM EDT [facility] TXJLJASVHjpwzde55/13/2025 1:20 PM EDT METRO IRON AND POOAPmddzbm53/13/2025 1:20 PM EDT ALL UJPCbxcqxc51/13/2025 1:20 PM EDT [facility] CMP (CMP) (FOR REMOTE [facility] USE)Hokquyo7904/24/2025 1:20 PM EDT ALL SED HYHSRfcvsxc98/13/2025 1:20 PM EDT ALL CBC WITH AUTO UYUSKdroqci46/13/2025 1:20 PM EDT POCT URINALYSIS TWBUFFTCQabuuql82/13/2025 10:21 AM EDT Hematuria, unspecified type URINARY TRACT INFECTION (HTRX)Wzswdkq3404/24/2025 12:00 AM EDT from Last 3 Months Results * Hm Colonoscopy (06/06/2025)Anatomical RegionLateralityModalityOtherSpecimen (Source)Anatomical Location / LateralityCollection Method / VolumeCollection TimeReceived Time06/06/2025 Impressions 06/07/2025 7:56 AM EDT Diverticulosis with diverticular strictures. See scanned document for full report. No further screenings recommended. Narrative Authorizing ProviderResult TypeResult StatusKaren Nathan Hemmer PAHEALTH MAINTENANCE Final Result * (ABNORMAL) FREE K+L LT CHAINS,QN,S (04/24/2025 1:20 PM EDT)ComponentValueRef RangeTest MethodAnalysis TimePerformed AtPathologist SignatureFREE KAPPA LT CHAINS,S33.9(A)3.3 - 19.4 mg/LTBHFREE LAMBDA LT CHAINS,S25.75.7 - 26.3 mg/LTBH KAPPA/LAMBDA RATIO,S1.320.26 - 1.65TBHComment: Performed at: ??[address] ??[id number] [employer]: Baudilio Givens PhD, Phone: ??[phone] Specimen (Source)Anatomical Location / LateralityCollection Method / Volume Collection TimeReceived Time04/24/2025 1:20 PM EDT04/24/2025 1:22 PM EDT Narrative [facility] - 04/25/2025 4:09 PM EDT Authorizing ProviderResult TypeResult StatusGeneric External Data ProviderLAB BLOOD ORDERABLESFinal ResultPerforming OrganizationAddressCity/State/ZIP Code Phone Number [facility] * PROTEIN ELECTRO.,S (04/24/2025 1:20 PM EDT)ComponentValueRef RangeTest Method Analysis TimePerformed AtPathologist SignaturePROTEIN, TOTAL7.16.0 - 8.5 g/dL TBHALBUMIN3.42.9 - 4.4 g/bHRCDHPWTQ-9-TLWVAXIU7.20.0 - 0.4 g/dLTBH LCGLP-6-HOHSHTDP8.80.4 - 1.0 g/dLTBHBETA GLOBULIN1.10.7 - 1.3 g/dLTBHGAMMA GLOBULIN1.60.4 - 1.8 g/dLTBHM-SPIKENot ObservedNot Observed g/dLTBHGLOBULIN, TOTAL3.72.2 - 3.9 g/dLTBHA/G RATIO0.90.7 - 1.7TBHPLEASE NOTE:Comment.[facility] Comment: Protein electrophoresis scan will follow via computer, mail, or barrel tester and drainer delivery. Performed at: ??[facility] [employer] ??[id number] [employer]: Baudilio Givens PhD, Phone: ??[phone] Specimen (Source)Anatomical Location / LateralityCollection Method / Volume Collection TimeReceived Time04/24/2025 1:20 PM EDT04/24/2025 1:22 PM EDT Narrative [facility] - 04/25/2025 4:09 PM EDT Authorizing ProviderResult TypeResult StatusGeneric External Data ProviderLAB BLOOD ORDERABLESFinal ResultPerforming OrganizationAddressCity/State/ZIP Code Phone Number [facility] * (ABNORMAL) METRO IRON AND TIBC (04/24/2025 1:20 PM EDT)ComponentValueRef Range Test MethodAnalysis TimePerformed AtPathologist SignatureTBH IRON13.0(L)50.0 - 170.0 ug/dLTBHTBH TOTAL IRON BINDING ZMTXQDJW461.0250.0 - 450.0 ug/dLTBHTBH PERCENT IRON SATURATION3.1%TBHSpecimen (Source)Anatomical Location / LateralityCollection Method / VolumeCollection TimeReceived Time04/24/2025 1:20 PM EDT04/24/2025 1:22 PM EDT Narrative [facility] - 04/24/2025 2:28 PM EDT Authorizing ProviderResult TypeResult StatusGeneric External Data Provider CLINISYNCFinal ResultPerforming OrganizationAddressty/State/ZIP CodePhone Number [facility] * [facility] FERRITIN (04/24/2025 1:20 PM EDT)ComponentValueRef RangeTest Method Analysis TimePerformed AtPathologist SignatureFERRITIN9.08.0 - 252.0 ng/mLTBH Specimen (Source)Anatomical Location / LateralityCollection Method / Volume Collection TimeReceived Time04/24/2025 1:20 PM EDT04/24/2025 1:22 PM EDT Narrative [facility] - 04/24/2025 2:39 PM EDT Authorizing ProviderResult TypeResult StatusGeneric External Data Provider CLINISYNCFinal ResultPerforming OrganizationAddressty/State/ZIP CodePhone Number [facility] * (ABNORMAL) [facility] CMP (CMP) (FOR REMOTE [facility] USE) (04/24/2025 1:20 PM EDT) ComponentValueRef RangeTest MethodAnalysis TimePerformed AtPathologist OintlizxeQXQYPG701676 - 145 mmol/LTBHPOTASSIUM4.13.5 - 5.1 mmol/LTBHCHLORIDE 81301 - 107 mmol/LTBHCARBON TBRNYXJ92.521.0 - 32.0 mmol/LTBHANION GAP13.6TBH DAUNCOY89246 - 106 mg/dLTBHBLOOD UREA MZWVUJHT56.0(H)7.0 - 18.0 mg/dLTBH CREATININE0.730.55 - 1.02 mg/dLTBHTBH EGFR-AF CENTRAL AFRICAN>60>=60 mL/min/1.73m 2 TBHTBH EGFR-NON AF CENTRAL AFRICAN>60>=60 mL/min/1.73m 2TBHBUN CREATININE RATIO31.5 TBHCALCIUM9.18.5 - 10.1 mg/dLTBHBILIRUBIN TOTAL0.40.2 - 1.0 mg/dLTBHASPARTATE AMINO UJFLHUKIWUW4855 - 37 U/LTBHALANINE FXAIGUGTCFSKXMTG8181 - 59 U/LTBH ALKALINE URYNTRVEVBB07699 - 116 U/LTBHTOTAL PROTEIN7.86.4 - 8.2 g/dLTBHALBUMIN LEVEL3.43.4 - 5.0 g/dLTBHGLOBULIN4.4g/dLTBHALBUMIN GLOBULIN RATIO0.8TBH Specimen (Source)Anatomical Location / LateralityCollection Method / Volume Collection TimeReceived Time04/24/2025 1:20 PM EDT04/24/2025 1:22 PM EDT [facility]ative [facility] - 04/24/2025 2:24 PM EDT Authorizing ProviderResult TypeResult StatusGeneric External Data Provider CLINISYNCFinal ResultPerforming OrganizationAddressCity/State/ZIP CodePhone Number [facility] * (ABNORMAL) ALL SED RATE (04/24/2025 1:20 PM EDT)ComponentValueRef RangeTest MethodAnalysis TimePerformed AtPathologist SignatureTBH SED RATE91(H)<=30 mm/hrTBHSpecimen (Source)Anatomical Location / LateralityCollection Method / VolumeCollection TimeReceived Time04/24/2025 1:20 PM EDT04/24/2025 1:22 PM EDT Narrative [facility] - 04/24/2025 1:43 PM EDT Authorizing ProviderResult TypeResult StatusGeneric External Data Provider CLINISYNCFinal ResultPerforming OrganizationAddressCity/State/ZIP CodePhone Number [facility] * ALL LDH (04/24/2025 1:20 PM EDT)ComponentValueRef RangeTest MethodAnalysis TimePerformed AtPathologist SignatureLACTATE WRZFJSAFNDZHB93722 - 234 U/LTBH Specimen (Source)Anatomical Location / LateralityCollection Method / Volume Collection TimeReceived Time04/24/2025 1:20 PM EDT04/24/2025 1:22 PM EDT Narrative [facility] - 04/24/2025 2:24 PM EDT Authorizing ProviderResult TypeResult StatusGeneric External Data Provider CLINISYNCFinal ResultPerforming OrganizationAddressCity/State/ZIP CodePhone Number [facility] * (ABNORMAL) ALL CBC WITH AUTO DIFF (04/24/2025 1:20 PM EDT)ComponentValueRef RangeTest MethodAnalysis TimePerformed AtPathologist SignatureTBH WBC8.64.0 - 11.0 10 3/uLTBHTBH RBC3.54(L)4.20 - 5.40 10 6/uLTBHTBH HGB7.9(L)12.0 - 16.0 g/dLTBHTBH HCT26.4(L)36.0 - 48.0 %TBHTBH MCV74.6(L)81.0 - 99.0 fLTBHTBH MCH 22.3(L)26.7 - 34.0 pgTBHTBH MCHC29.929.9 - 35.2 g/dLTBHTBH RDW16.6(H)11.0 - 15.0 %TBHTBH HOO755520 - 450 10 3/uLTBHTBH MPV8.7(L)9.5 - 13.5 fLTBH NEUTROPHILS PERCENT AUTO66.443.0 - 75.0 %TBHLYMPHOCYTES PERCENT AUTO23.520.5 - 60.0 %TBHMONOCYTES PERCENT AUTO7.11.7 - 12.0 %TBHTBH EO %2.20.9 - 7.0 %TBH BASOPHILS PERCENT AUTO0.60.2 - 2.0 %TBHIMMATURE GRANULOCYTES PCT AUTO0.20.0 - 0.5 %TBHNEUTROPHILS ABSOLUTE AUTO5.71.4 - 6.5 10 3/uLTBHLYMPHOCYTES ABSOLUTE AUTO2.01.2 - 3.8 10 3/uLTBHMONOCYTES ABSOLUTE AUTO0.60.3 - 0.8 10 3/uLTBHTBH EO #0.20.0 - 0.7 10 3/uLTBHBASOPHILS ABSOLUTE AUTO0.10.0 - 0.1 10 3/uLTBH IMMATURE GRANULOCYTES ABS AUTO0.020.00 - 0.03 10 3/uLTBHSpecimen (Source) Anatomical Location / LateralityCollection Method / VolumeCollection Time Received Time04/24/2025 1:20 PM EDT04/24/2025 1:22 PM EDT Narrative CLINISYNC - 04/24/2025 1:27 PM EDT Authorizing ProviderResult TypeResult StatusGeneric External Data Provider CLINISYNCFinal ResultPerforming OrganizationAddressCity/State/ZIP CodePhone Number [facility]EM[facility] * (ABNORMAL) POCT Urinalysis dipstick (04/24/2025 10:21 AM EDT)ComponentValueRef RangeTest MethodAnalysis TimePerformed AtPathologist SignatureColor, UAYellow Clarity, UAClearGlucose, UANegativeNegative - 2000(110) ++++ mg/dLBilirubin, UANegativeNegative - 4(70) +++ mg/dLKetones, UANegativeNegative - 160(16) ++++ mg/dLSpec Grav, UA1.0501 - 1.03Blood, UAPositiveNegative - 50 Shadi/mcLpH, UA6.0 5 - 9Protein, UANegativeNegative - 2000(20) ++++ mg/dLUrobilinogen, UA0.20.2 - 12 mg/dLLeukocytes, UANegativeNegative - 500+++ Rosette/mcLNitrite, UANegative Negative - PositiveSpecimen (Source)Anatomical Location / LateralityCollection Method / VolumeCollection TimeReceived GwufCqpah25/13/2025 10:21 AM EDT Narrative Authorizing ProviderResult TypeResult StatusShannon Robles NPPOINT OF CARE TEST ENTER/EDIT ORDERABLESFinal Result * (ABNORMAL) URINARY TRACT INFECTION (HTRX) (04/24/2025 12:00 AM EDT)Component ValueRef RangeTest MethodAnalysis TimePerformed AtPathologist Signature ACINETOBACTER UCIGLKXY836.961 - 24.689 ppm04/25/2025 11:13 AM EDTHealthTrackRx at LabPortACINETOBACTER BAUMANIINot Kzpmpyni72.961 - 24.689 ppm04/25/2025 11:13 AM EDTHealthTrackRx at LabPortCITROBACTER NMTUSKKT713.000 - 32.015 ppm 04/25/2025 11:13 AM EDTHealthTrackRx at LabPortCITROBACTER FREUNDIINot Ivlnxhew22.000 - 32.015 ppm04/25/2025 11:13 AM EDTHealthTrackRx at LabPort ENTEROBACTER AEROGENES, TSJSHJV333.000 - 32.290 ppm04/25/2025 11:13 AM EDT [facility] at LabPortENTEROBACTER AEROGENES, CLOACAENot Ugekdqhh88.000 - 32.290 ppm04/25/2025 11:13 AM EDTHealthTrackRx at LabPortENTEROCOCCUS FAECALIS, YQPPWOJ127.000 - 33.043 ppm04/25/2025 11:13 AM EDTHealthTrackRx at LabPortENTEROCOCCUS FAECALIS, FAECIUMNot Ixxugfjs52.000 - 33.043 ppm04/25/2025 11:13 AM EDTHealthTrackRx at LabPortESCHERICHIA COLI22.906(A)23.000 - 28.500 ppm04/25/2025 11:13 AM EDTHealthTrackRx at LabPortESCHERICHIA COLIDetected(A) 23.000 - 28.500 ppm04/25/2025 11:13 AM EDTHealthTrackRx at LabPortKLEBSIELLA PNEUMONIAE, XNGTHWZ975.000 - 31.865 ppm04/25/2025 11:13 AM EDTHealthTrackRx at LabPortKLEBSIELLA PNEUMONIAE, OXYTOCANot Soemzmka95.000 - 31.865 ppm04/25/2025 11:13 AM EDTHealthTrackRx at LabPortMORGANELLA AYUWBLGB781.961 - 24.689 ppm 04/25/2025 11:13 AM EDTHealthTrackRx at LabPortMORGANELLA MORGANIINot Detected 19.961 - 24.689 ppm04/25/2025 11:13 AM EDTHealthTrackRx at LabPortPROTEUS MIRABILIS, CBSRWLZY871.000 - 28.500 ppm04/25/2025 11:13 AM EDTHealthTrackRx at LabPortPROTEUS MIRABILIS, VULGARISNot Jlhheyde65.000 - 28.500 ppm04/25/2025 11:13 AM EDTHealthTrackRx at LabPortPSEUDOMONAS JTIRNWRGYJ371.000 - 31.801 ppm 04/25/2025 11:13 AM EDTHealthTrackRx at LabPortPSEUDOMONAS AERUGINOSANot Ptyxycms99.000 - 31.801 ppm04/25/2025 11:13 AM EDTHealthTrackRx at LabPort STAPHYLOCOCCUS BQJOWH951.000 - 31.595 ppm04/25/2025 11:13 AM EDTHealthTrackRx at LabPortSTAPHYLOCOCCUS AUREUSNot Chdqogua30.000 - 31.595 ppm04/25/2025 11:13 AM EDTHealthTrackRx at LabPortSTREPTOCOCCUS AGALACTIAE (GROUP B STREP)026.000 - 32.435 ppm04/25/2025 11:13 AM EDTHealthTrackRx at LabPortSTREPTOCOCCUS AGALACTIAE (GROUP B STREP)Not Wiuiqcda79.000 - 32.435 ppm04/25/2025 11:13 AM EDTHealthTrackRx at LabPortCANDIDA ALBICANS, PARAPSILOSIS, EOSEQVPFCH625.000 - 30.347 ppm04/25/2025 11:13 AM EDTHealthTrackRx at LabPortCANDIDA ALBICANS, PARAPSILOSIS, TROPICALISNot Mpxjuego92.000 - 30.347 ppm04/25/2025 11:13 AM EDT [facility] at LabPortCANDIDA XVROJCMS623.000 - 31.618 ppm04/25/2025 11:13 AM EDTHealthTrackRx at LabPortCANDIDA GLABRATANot Nnnigpxj12.000 - 31.618 ppm 04/25/2025 11:13 AM EDTHealthTrackRx at LabPortCANDIDA SAKIJS154.000 - 30.873 ppm04/25/2025 11:13 AM EDTHealthTrackRx at LabPortCANDIDA SEBUSEINot Detected 23.000 - 30.873 ppm04/25/2025 11:13 AM EDTHealthTrackRx at LabPortSERRATIA PALXYMOTMN515.000 - 31.581 ppm04/25/2025 11:13 AM EDTHealthTrackRx at LabPort SERRATIA MARCESCENSNot Cimsuhsq57.000 - 31.581 ppm04/25/2025 11:13 AM EDT [facility] at LabPortSTREPTOCOCCUS PYOGENES (GROUP A STREP)019.961 - 24.689 ppm04/25/2025 11:13 AM EDTHealthTrackRx at LabPortSTREPTOCOCCUS PYOGENES (GROUP A STREP)Not Usnwywug36.961 - 24.689 ppm04/25/2025 11:13 AM EDT [facility] at LabOtis R. Bowen Center For Human ServicesSTAPHYLOCOCCUS EPIDERMIDIS, HAEMOLYTICUS, LUGDUNENSIS, SAPROPHYTICUS (ZOXDO574.961 - 24.689 ppm04/25/2025 11:13 AM EDTHealthTrackRx at LabPortSTAPHYLOCOCCUS EPIDERMIDIS, HAEMOLYTICUS, LUGDUNENSIS, SAPROPHYTICUS (URINANot Ennekabc73.961 - 24.689 ppm04/25/2025 11:13 AM EDTHealthTrackRx at LabPortSTAPHYLOCOCCUS EPIDERMIDIS, HAEMOLYTICUS, LUGDUNENSIS, SAPROPHYTICUS (QOLEH108.961 - 24.689 ppm04/25/2025 11:13 AM EDTHealthTrackRx at [facility] STAPHYLOCOCCUS EPIDERMIDIS, HAEMOLYTICUS, LUGDUNENSIS, SAPROPHYTICUS (URINANot Jsulavnz64.961 - 24.689 ppm04/25/2025 11:13 AM EDTHealthTrackRx at LabPortTET B, TET M27.112(A)23.000 - 27.500 ppm04/25/2025 11:13 AM EDTHealthTrackRx at LabPortTET B, TET MDetected(A)23.000 - 27.500 ppm04/25/2025 11:13 AM EDT [facility] at LabPortSpecimen (Source)Anatomical Location / Laterality Collection Method / VolumeCollection TimeReceived JghiGnxva78/13/2025 04/25/2025 4:28 AM EDT Narrative Authorizing ProviderResult TypeResult StatusShannon Robles NPLAB BLOOD ORDERABLESFinal ResultPerforming OrganizationAddressCity/State/ZIP CodePhone Number [facility] [address] [place] [phone] from Last 3 Months Insurance * Guarantor: Breann Starks TAccount TypeRelation to PatientDate of BirthPhone Billing AddressPersonal/LiatyqPewv93[birth year][address] [address] Care Teams Team MemberRelationshipSpecialtyStart DateEnd Date Renny Hansen MD [address] [facility] [address] [place] [address] PCP - GeneralInternal Medicine09/19/24 Renny Hansen MD [address] [facility] [address] [place] [address] PCP - Medical Millsap MA09/12/2511 Lisa Ramirez LPN [address] [facility] [address] [place] [address] 12/05/24
--- OUTSIDE RECORDS SUMMARY | 2025-07-10 10:50 | XMS_ITS | Clinical Summary ---
Author Organization [facility] Address [address] [place] [address] Phone Care Team Providers Care Supervisor Costuming Name Role Phone Unavailable Primary Care Provider Unavailabl e Social History Tobacco UseTypesPacks/DayYears UsedDateSmoking Tobacco: Never Assessed CommentsUnknownSex and Gender InformationValueDate RecordedSex Assigned at Not on fileLegal XesHnfyzn06/02/2023 4:35 AM EDTGender IdentityNot on fileSexual OrientationNot on file Plan of Treatment Not on file
--- OUTSIDE RECORDS SUMMARY | 2025-07-10 10:50 | XMS_ITS | Clinical Summary ---
Author Organization [facility] Address [address] [place] [address] Care Team Providers Care Market Risk Analyst Name Role Phone Paulette Johnson MD Primary Care Provider [phone] Scott Cruz MD Unavailable [phone] Allergies Active AllergyReactionsCriticalityNoted RwguChccszzsDjxgbyzeYriyafgr83/08/2024 Medications MedicationSigDispense QuantityRefillsLast FilledStart DateEnd DateStatus baclofen 10 mg tablet Take 10 mg by mouth three times a day as needed.Active HYDROcodone-acetaminophen (NORCO) 5-325 mg per tablet Take 1 tablet by mouth three times a day as needed for pain.Active verapamil ER 180 mg 24 hr capsule take 2 capsules by mouth in the morningActive flecainide (TAMBOCOR) 100 mg tablet Take 100 mg by mouth every 12 hours.01/11/2023ctive Cholecalciferol, Vitamin D3, 125 mcg (5,000 unit) cap Take 1 tablet by mouth every morning.Active spironolactone (ALDACTONE) 25 mg tablet Take 25 mg by mouth once daily.Active omeprazole (PRILOSEC) 40 mg capsule 02/15/2023ctive gabapentin (NEURONTIN) 300 mg capsule Take 300 mg by mouth two times a day.Active Social History Tobacco UseTypesPacks/DayYears UsedDateSmoking Tobacco: NeverSmokeless Tobacco: NeverAlcohol UseStandard Drinks/IzotGbbfkxcuLyv08 (1 standard drink = 0.6 oz pure alcohol)CommentsUnknownSex and Gender InformationValueDate Recorded Sex Assigned at BirthNot on fileLegal WjeUndfdh11/02/2012 8:02 AM ESTGender IdentityNot on fileSexual OrientationNot on file Last Filed Vital Signs Vital SignReadingTime TakenCommentsBlood Pressure--Pulse--Temperature-- Respiratory Rate--Oxygen Saturation--Inhaled Oxygen Concentration--Zizqzp32.8 kg (220 lb)05/22/2024 1:17 PM KMPMzzyqn930.9 cm (4' 11 )05/22/2024 1:17 PM EDTBody Mass Index44.4309 1:17 PM EDT Plan of Treatment Health MaintenanceDue DateLast DoneCommentsAnxiety Gaeswcqzo96/21/1966Depression Yfiultclz11/21/1966Hepatitis C Fezfbitpe35/21/1966DTaP,Tdap,Td Vaccine (1 - Tdap)11/30/1966Diabetes Dztzotwun62/21/1993Shingrix Vaccine (1 of 2)11/30/1997 Bone Density Jhdrdtaqi95/21/2013dvance Directive Xpljihshhy38/01/2025Medicare Advantage Annual Wellness Visit09/12/2024ovid-19 Vaccine ( season) 503/05/2021, 10/20/2020Influenza Vaccine (#1)/, 07/08/2022, 08/20/2021, Additional history existsPneumococcal Vaccine: 50+ Quvbcgxke48/09/2021, 08/04/2020, 07/05/2017RSV VvheznyImqtgldri23/14/2023 Insurance Care Teams Team MemberRelationshipSpecialtyStart DateEnd Paulette Johnson MD [address] [place] [address] PCP - General01/05/06 Scott Cruz MD [address] [address] ReferringInfectious Diseases05/07/24
--- OUTSIDE RECORDS SUMMARY | 2025-07-10 10:50 | XMS_ITS | Clinical Summary ---
Author Organization [facility] Address [address] [place] [address] Care Team Providers Care Mainframe Systems Programmer Name Role Phone Renny Hansen MD Primary Care Provider [phone] Balta Cardenas DO Unavailable [phone] Allergies Active AllergyReactionsCriticalityNoted VezoCoclcofrGiijgabaBowfTvx65/11/2025 Medications MedicationSigDispense QuantityRefillsLast FilledStart DateEnd DateStatus cholecalciferol (Vitamin D-3) 125 MCG (5000 UT) capsule Take 1 tablet by mouth in the morning.Active Eliquis 5 mg tablet Take 5 mg by mouth every 12 (twelve) hours.05/05/2023ctive baclofen (Lioresal) 10 mg tablet Take 1 tablet by mouth every 6 (six) hours during the day.03/23/2024ctive omeprazole (PriLOSEC) [address] capsule Take 1 capsule by mouth in the morning.07/09/2024ctive flecainide (Tambocor) 100 mg tablet Indications:Paroxysmal atrial fibrillation (CMS/HCC)Take 1 tablet (100 mg) by mouth Twice daily at 6am and 6pm. 180 tablet 5Active spironolactone (Aldactone) 50 mg tablet Indications:Chronic diastolic heart failure (CMS/HCC)Take 1 tablet (50 mg) by mouth in the morning. 90 tablet ctive verapamil ER (Veralan) 180 mg 24 hr capsule Indications:Essential hypertensionTake 2 capsules (360 mg) by mouth once daily as directed. Do not crush or chew. 180 capsule 5Active furosemide (Lasix) 40 mg tablet Indications:Benign hypertensive heart disease with heart failure (CMS/HCC)Take 1 tablet (40 mg) by mouth two times daily. 180 tablet [id number] spironolactone (Aldactone) 25 mg tablet Indications:Edema, unspecifiedTake 1 tablet (25 mg) by mouth in the morning. 90 tablet 3105Active penicillin v potassium (Veetid) 500 mg tablet Indications: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Take 1 tablet (500 mg) by mouth Twice daily at 6am and 6pm. 120 tablet /5Active spironolactone (Aldactone) 25 mg tablet Indications:Edema, unspecifiedTAKE 1 TABLET BY MOUTH EVERY DAY 90 tablet Discontinued(Reorder) Active Problems ProblemNoted DateDiagnosed DateDisc degeneration, vkstbzgriia59/28/2025Lumbar disc herniation with vhowgkryfydfg55/28/2025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02/22/2025HF (congestive heart failure)09/24/2024History of ulcer yptezsg1109/24/2024Positive fecal occult blood test09/24/2024 Cwwixauqbwzdwc55/13/2025Gastroesophageal reflux disease without esophagitis 08/16/2024ulmonary vgxajxfpdbjw26/06/2024Obstructive sleep apnea syndrome 07/18/2024bnormal CT scan, neck07/05/2024nemia due to multiple mechanisms 07/05/2024xillary lyhnvvylexagejk42/24/2024egenerative disc disease, cervical 07/05/2024Irritable bowel ivnithpw62/24/2024Sigmoid /24/2024Iron deficiency anemia due to chronic blood loss03/12/2024ardiac pacemaker in situ 01/19/2024iastolic adsqpesgibw47/09/2024rthritis of right acromioclavicular jointlosed fracture of fifth metatarsal bone11/07/2023 01/17/2024ontusion of left suuielbf54Impingement syndrome of right ejpkddag21/03/2024Shoulder pain10/17/2023cute pain of left knee /rthritis of left shoulder zyzndp56/hronic bilateral low back pain with /03/2024 Overview (01/17/2024): Last Assessment & Plan: Chronic LBP with bilateral radiculopathy. MRI shows multilevel degenerative changes, worse at L4-5. Could not tolerate gabapentin and lyrica Patient had spidural spinal injection and that seems to be helping her pain. Pain is reasonably controlled. Monitor. Medicare annual wellness visit, izvbbvwgup40/26/202305/03/2024 Overview (01/17/2024): Last Assessment & Plan: Patient here for medicare wellness. Doing well overall other than chronic back pain. Upto date on Colon Cancer screening, breast cancer screening. Reviewed medications, counseled on lifestyle measures, importance of compliance. Vitamin D ztzuwqlwds80/20/2023Venous mkakeuicxnylg26/20/2023Steatosis of liver 03/01/2023 Overview (03/01/2023): non alcoholic Spinal hsndiqto53/20/2023astric ulcer03/01/2023Osteoarthritis of lumbar spine 03/01/2023Osteoarthritis of both knees03/01/20230617Pdueisrxkjgh03/20/2023Herpes pjigmx6003/01/2023 Overview (03/01/2023): 05/2019 Cervical adozppqkixxbq60/20/2023aroxysmal A-fib11/18/2022 Assessment & Plan (11/18/2022 10:55 AM EST): -device check in may 2022 <1% AF, had 1 mode switch which lasted 6 seconds -will have her get device check to assess AF burden -PTS5XH7-PDJh 3 -Continue Xarelto 20 mg daily, continue propafenone to 25 mg 3 times a day Sinus node dbscjngmfic64/26/2021 Assessment & Plan (11/18/2022 10:55 AM EST): - S/p PPM [employer] -We will have her scheduled for device check Ubfpmvm0312/29/2012 Assessment & Plan (11/18/2022 10:56 AM EST): Obesity is slightly improving -She was to 255 pounds last visit and today she is 241 pounds -Advised to continue working on weight loss and lifestyle changes Premature beats02/04/2012Essential nvmlchxkfyak31/03/2012 Assessment & Plan (11/18/2022 10:54 AM EST): Hypertension is stable -ct medications: aldactone, verapamil, lasix 20mg -managed per PCP Malaise and zzfswyn5601/13/2012Disorder of bursae of shoulder kvpiik4701/12/2012 Chronic obstructive lung exqqmpp0101/12/2012therosclerosis of [place] coronary artery of [place] heart without angina zqcimohn80/02/2012 Assessment & Plan (11/18/2022 10:53 AM EST): Coronary artery disease is stable -no CP or LEA -last cath 2010, mild disease no PCI / stent -continue medications Diaphragmatic fvbppa4901/12/20128451Ecshs45/02/2012Paroxysmal supraventricular nxrrerqxpxo67/02/2012 Resolved Problems ProblemNoted DateDiagnosed DateResolved DateAcute on chronic diastolic (congestive) heart / Encounters DateTypeDepartmentCare PhrdDwpbhuzeudp80/03/2025Orders Only [facility] Infectious Disease [address] [place] [address] Ortega Hines MD 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) 06/14/2025Telephone [facility] Infectious Disease [address] [place] [address] Rosemarie Mistry MA Med Jgscup4806/14/2025Refill [facility] [place] [address] [place] [address] Roopa Mensah MA Edema, fugwanlzuuf79/18/2025Telephone [facility] Allergy & Immunology [address] [place] [phone] Wanda Hernandez MA 05/15/2025 11:00 AM EDTFollow-Up [facility] [address] [place] [address] Ortega Hines MD 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) 05/15/2025Orders Only [facility] Infectious Disease [address] [place] [address] ProviderNeeraj MD 04/26/2025[facility] [address] [facility] [place] [phone] Roopa Mensah MA Benign hypertensive heart disease with heart failure (CMS/HCC)from Last 3 Months Immunizations ImmunizationAdministration DatesNext DueInfluenza, High Dose Seasonal, Preservative Free08/06/2019Influenza, Seasonal, Quadrivalent, Adjuvanted 07/08/2022,08/20/2021,08/04/2020Influenza, Iicdponqywo03/24/2017,06/29/2016, 06/25/2015,07/12/2014,08/07/2013Influenza, seasonal,quadrivalent, preservative free06/12/2015Moderna SARS-CoV-2 Iqwxskjmhcj27/09/2021,10/20/2020neumococcal Conjugate PCV 13110/04/2019,07/05/2017Pneumococcal Polysaccharide QZG771910/21/2020 Family History * Patient is adopted RelationNameStatusCommentsFatherDeceasedMotherDeceased Social History Tobacco UseTypesPacks/DayYears UsedDateSmoking Tobacco: VavqsoCbpfivduon7886 - 1999Smokeless Tobacco: Never Tobacco Cessation:Counseling Given: Not Answered Alcohol UseStandard Drinks/WeekCommentsYes0 (1 standard drink = 0.6 oz pure alcohol)OCCASIONALHumiliation, Afraid, Rape, and Kick questionnaireAnswerDate RecordedWithin the last year, have you been afraid of your partner or ex-partner?No11/27/2024Emotionally AbusedNot on file11/27/2024Physically Abused Not on file11/27/2024Sexually AbusedNot on file11/27/2024PHQ-2AnswerDate RecordedPatient Health Questionnaire-2 Iiwvs167CommentsUnknown Sex and Gender InformationValueDate RecordedSex Assigned at BirthFemale 05/15/2025 10:28 AM EDTLegal AvkVjztuo42/29/2022 10:18 PM EDTGender Identity Tasmrp4905/15/2025 10:28 AM EDTSexual OrientationHeterosexual or Straight 05/15/2025 10:28 AM EDT Last Filed Vital Signs Vital SignReadingTime TakenCommentsBlood Uckuazse086/76005/15/2025 10:32 AM EDT Mwzau8884/03/2025 10:32 AM DVTYqdnlouldrf96.9 ??C (98.4 ??F)05/15/2025 10:32 AM EDTRespiratory Rate--Oxygen Ewiahlztck13%12/24/2024 1:32 PM EDTInhaled Oxygen Concentration--Ngyfkd15.5 kg (215 lb)05/15/2025 10:32 AM BLNLdyqqp538.9 cm (4' 11 )05/15/2025 10:32 AM EDTBody Mass Index43.42005/15/2025 10:32 AM EDT Plan of Treatment DateTypeDepartmentCare Team (Latest Contact Info)Yvxpmcimmhe15/29/2025 1:40 PM EDTOffice Visit [facility] [address] [place] [address] Kellie Alva MD [address] [facility] [address] [place]:[address] [place] [address] 11/13/2025 11:00 AM ESTFollow-Up [facility] [address] [place] [address] Ortega Hines MD [address] [facility]/[place] [address] Health MaintenanceDue DateLast DoneCommentsMedicare Annual Wellness (AWV) 8Adult Nozejtr6511/30/1969Zoster Vaccines (1 of 2)11/30/1997COVID-19 Vaccine (2024- season)503/05/2021, 11/18/2020, 10/20/2020, Additional history existsInfluenza Vaccine (#1)501/04/2025, 08/25/2023, 07/08/2022, Additional history existsFall Risk Ttwswcnfi79/07/2025 Depression Ataussxwl65/11/2024Pneumococcal Vaccine: 50+ YearsCompleted 08/20/2021, 08/04/2020, 07/05/20175521AckipspcxCqiernuayfqu16/04/2025HIB Vaccines Aged OutNo longer eligible based on patient's age to complete this topicHPV VaccinesAged OutNo longer eligible based on patient's age to complete this topic IPV VaccinesAged OutNo longer eligible based on patient's age to complete this topicMeningococcal B VaccineAged OutNo longer eligible based on patient's age to complete this topicMeningococcal VaccineAged OutNo longer eligible based on patient's age to complete this topicRotavirus VaccinesAged OutNo longer eligible based on patient's age to complete this topic Procedures Procedure NamePriorityDate/TimeAssociated DiagnosisCommentsMISCELLANEOUS LAB JDPCVelnhzt95/03/2025 1:44 PM EDTfrom Last 3 Months Results * - Miscellaneous Test (05/15/2025 1:44 PM EDT) Narrative Authorizing ProviderResult TypeResult StatusHistorical Provider ADRIANA BLOOD ORDERABLESFinal Result from Last 3 Months Insurance Care Teams Team MemberRelationshipSpecialtyStart DateEnd Renny Hansen MD [address] [facility] [address] [place] [address] PCP - GeneralInternal Banismmy89/6/24 Balta Cardenas DO [address] [place] [address] Referring Physician11/15/24
--- OUTSIDE RECORDS SUMMARY | 2025-07-10 10:50 | XMS_ITS | Patient Health Record ---
Author Organization [facility] Address [address] [place] [address] Care Team Providers Care Seconds Inspector Name Role Phone SHAIKH DOMINGUEZ Primary Care Provider James Garcia Unavailable [phone] Reason For Referral No Information Plan Of Treatment Pending Test Test Name Order Date MRI : Shoulder W/O Contrast Left - 11650 03/05/2024 ORDERS 03/19/2024 Chest 2 views - [id number] 03/19/2024 Insurance Providers Payer Name Payer Address Payer Phone Subscriber Number Group Number Insured Name Patient Relationship to Insured Coverage Start Date Coverage End Date Medicare [employer] [address] [facility] [place] [phone] [id number] Cydney HERRMANN - patient is the insured
[2025-07-10 12:24] LABS: Cholesterol 134 mg/dL (<=200); HDL Cholesterol 55 mg/dL (40-60); Triglycerides 51 mg/dL (<=150); VLDL CHOLESTEROL 10.2 mg/dL
== END 2025-07-10 10:46 | disposition home or self-care (01) ==
PROVIDERS: PCP Internal Medicine; Visit Provider Internal Medicine Cardiovascular Disease
DX: E78.00 Pure hypercholesterolemia, unspecified (principal)
CPT/HCPCS: 36415; 80061

== ENCOUNTER 2025-08-02 12:52 | Outpatient (OUT) | payer MEDICARE, SELFPAY ==
--- OUTSIDE RECORDS SUMMARY | 2025-07-24 23:59 | XMS_ITS | Continuity of Care Document ---
Author Organization [facility] Address Unknown Care Team Providers Care Supervisor Adult Education Name Role Phone CHERYL FAVIAN Shen Primary Care Physician Encounter [facility] [id number] Date(s): 07/24/25 - 07/24/25 [address] [place], [place] [address] Discharge Disposition: Home (Routine DC) Attending Physician: Danna King MD Admitting Physician: Danna King MD Encounter Type: Lab Drop off Allergies, Adverse Reactions, Alerts No Known Allergies Treatment Plan Diagnostic Tests Pending * Urine Culture 07/24/25 Immunizations Given and Recorded VaccineDateStatusRefusal Reasoninfluenza virus vaccine, rfludzjreje23/14/23 Recordedinfluenza virus vaccine, efqrlygzpgj96/27/22Recordedinfluenza virus vaccine, bvyolccbnwi75/9/21Recordedinfluenza virus vaccine, omomhpcrrvl06/23/20 Recordedinfluenza virus vaccine, lplnfjbpqoe02/25/19Recordedinfluenza virus vaccine, nzkfbnqbcxu48/24/Recordedinfluenza virus vaccine, jtsyxkctjub54/18/16 Recordedinfluenza virus vaccine, dzcjxstkbfi91/14/Recordedinfluenza virus vaccine, erxmjuohyza32/1/15Recordedinfluenza virus vaccine, pcprevnvfjx95/31/14 Recordedinfluenza virus vaccine, lbrwtcwpqua04/26/13Recordedpneumococcal 23- valent /9/67VfcxwumhDYMS-KaW-3 (COVID-19) mRNA-1273 vaccine11/18/20 ViybktcvDFET-KoJ-1 (COVID-19) mRNA-1273 vaccine10/20/20Recordedpneumococcal 13- valent sgejkvo35/23/20Recordedpneumococcal 13-valent khqzars87/24/17Recorded Medications acetaminophen-hydrocodone 325 mg-5 mg oral tablet 1 tab(s), Oral, BID, Refill(s) 0 Start Date: 03/01/24 Status: Ordered Medication Dispense Status: Completed Total Allowed Fills: 1 Fills Dispensed: 0 acetaminophen-hydrocodone 325 mg-5 mg oral tablet Refill(s) 0 Start Date: 07/24/25 Status: Ordered Medication Dispense Status: Completed Total Allowed Fills: 1 Fills Dispensed: 0 baclofen 10 mg Tab 10 mg = 1 tab(s), Oral, TID, Refills(s) 0 Start Date: 03/01/24 Status: Ordered Medication Dispense Status: Completed Total Allowed Fills: 1 Fills Dispensed: 0 Centrum Women 50 Plus Multigummies oral tablet, chewable Refill(s) 0 Start Date: 01/11/23 Status: Ordered Medication Dispense Status: Completed Total Allowed Fills: 1 Fills Dispensed: 0 Eliquis 5 mg oral tablet 5 mg = 1 tab(s), Oral, BID, Refills(s) 0 Start Date: 03/01/24 Status: Ordered Medication Dispense Status: Completed Total Allowed Fills: 1 Fills Dispensed: 0 flecainide 100 mg Tab 100 mg = 1 tab(s), Oral, q12hr, # 180 tab(s), Refills(s) 0 Start Date: 01/11/23 Status: Ordered Medication Dispense Status: Completed Quantity: 180.0 Unit: tab(s) Total Allowed Fills: 1 Fills Dispensed: 0 Lasix 40 mg Tab 40 mg = 1 tab(s), Oral, Daily, Refills(s) 0 Start Date: 03/01/24 Status: Ordered Medication Dispense Status: Completed Total Allowed Fills: 1 Fills Dispensed: 0 omeprazole 40 mg Cap-DR 40 mg = 1 cap(s), Oral, Daily, # 90 cap(s), Refills(s) 0, [id number], cm, 01/11/23 10:30:00 EDT, Height/Length Dosing, 107.2, kg, 01/11/23 10:30:00 EDT, Weight Dosing Start Date: 02/15/23 Status: Ordered Medication Dispense Status: Completed Quantity: 90.0 Unit: cap(s) Total Allowed Fills: 1 Fills Dispensed: 0 penicillin V potassium 500 mg Tab Refills(s) 0 Start Date: 07/24/25 Status: Ordered Medication Dispense Status: Completed Total Allowed Fills: 1 Fills Dispensed: 0 spironolactone 25 mg Tab 25 mg = 1 tab(s), Oral, Daily, Refills(s) 0 Start Date: 03/01/24 Status: Ordered Medication Dispense Status: Completed Total Allowed Fills: 1 Fills Dispensed: 0 verapamil 180 mg Cap-ER 180 mg = 1 cap(s), Oral, Daily, Refills(s) 0 Start Date: 03/01/24 Status: Ordered Medication Dispense Status: Completed Total Allowed Fills: 1 Fills Dispensed: 0 Vitamin D3 5000 intl units (125 mcg) oral tab 125 mcg = 1 tab(s), Oral, Daily, # 90 tab(s), Refills(s) 0, [id number] 141, cm, 01/11/23 10:30:00 EDT, Height/Length Dosing, 107.2, kg, 01/11/23 10:30:00 EDT, Weight Dosing Start Date: 02/15/23 Status: Ordered Medication Dispense Status: Completed Quantity: 90.0 Unit: tab(s) Total Allowed Fills: 1 Fills Dispensed: 0 Problem List ConditionConfirmationCourseEffective DatesStatusHealth StatusInformantArthritis ConfirmedActiveAsymptomatic microscopic hematuriaConfirmedActiveAtrial fibrillationConfirmedActiveOsteoarthritis of both kneesConfirmedActiveBMI 50.0- 59.9, adultConfirmedActiveCervical radiculopathyConfirmedActiveChronic obstructive pulmonary diseaseConfirmed01/12/12ActiveChronic obstructive pulmonary diseaseConfirmedActiveCHF (congestive heart failure)ConfirmedActiveCoronary atherosclerosisConfirmed01/12/1299RqoahbSafiyvpxmn6ZxltmhmweChikdbxgBedglaslz hypertensionConfirmed01/13/12ActiveHistory of ulcer diseaseConfirmedActiveDeafness ConfirmedActiveHeart vgmmcahNsiemfnveSjipjiEzkrjtaf1LwphbplopDojoeiDhlbnf hernia ConfirmedActiveHiatal hernia with GERDConfirmedActiveHistory of strokeConfirmed ResolvedHypocalcemiaConfirmedActiveIncomplete emptying of bladderConfirmedActive Mixed incontinence urge and stressConfirmedActiveIron deficiency anemiaConfirmed ActiveOsteoarthritis of lumbar spineConfirmedActiveMigrainesConfirmedResolved Class 3 obesityConfirmedActivePositive fecal occult blood testConfirmedActive PSVT (paroxysmal supraventricular tachycardia)ConfirmedActivePeptic ulcer diseaseConfirmedActiveSinus node dysfunctionConfirmed10/07/20ActiveSpinal stenosisConfirmedActiveFatty srdez1CelpqqckpAwxrmhSUY (urinary tract infection) ConfirmedActiveVenous insufficiencyConfirmedActiveVitamin D deficiencyConfirmed Active 1Per pt she had a bought of depresseion after her but she denies any chronic depression. 3non alcoholic Procedures ProcedureDateRelated DiagnosisBody SiteStatusColonoscopy03/07/24CompletedEGD - esophagogastroduodenoscopy03/07/24CompletedCardiac xltchvhub68/9/22Completed History of right total knee replacement09/12/03CompletedHistory of left total knee replacement09/12/01CompletedAppendectomyCompletedArthroscopy of oshd7Dsgthdtml Arthroscopy of vekjaknw5IazemkkksKzkfmos nqonnnam8PmwfnufdiYkgmrmbasoc5Btkjqyewo Ligation of fallopian tube (procedure)CompletedRotator cuff yasnga1YoymkgditBVC BSO - Total abdominal hysterectomy and bilateral salpingo-oophorectomyCompleted 1Dr. Natasha 3left shoulder tear repaired 08/25 46/11/ mild CAD 61204 repeat 10 years 6right Results Laboratory List NameDateUrinalysis with Micro07/24/25Urinalysis with Micro SP109/23/24Urinalysis with Micro SP109/23/24 Most recent to oldest [Reference Range]:12UA Bacteria [Trace /HPF]Trace /HPF (07/24/25 11:36 AM)UA Bili [Negative mg/dL]Negative mg/dL (07/24/25 11:36 AM)UA Color [Yellow]Dark-Yellow1 *ABN* (07/24/25 11:36 AM)UA Glucose [Negative mg/dL]Negative mg/dL (07/24/25 11:36 AM)UA Ketones [Negative mg/dL]Negative mg/dL (07/24/25 11:36 AM)UA Leuk Est [Negative Rosette/uL]25 Rosette/uL Rosette/uL (07/24/25 11:36 AM)UA Mucous [Negative graded/LPF]Trace graded/LPF (07/24/25 11:36 AM)UA Nitrite [Negative mg/dL]Negative mg/dL (07/24/25 11:36 AM)UA Protein [Negative mg/dL]Trace mg/dL *ABN* (07/24/25 11:36 AM)UA RBC [0-3 graded/HPF]4-20 graded/HPF *ABN* (07/24/25 11:36 AM)UA Squam Epithelial0-2 graded/HPF *NA* (07/24/25 11:36 AM)UA Urobilinogen [Negative mg/dL]Negative mg/dL (07/24/25 11:36 AM)UA WBC [0-5 graded/HPF]6-15 graded/HPF *ABN* (07/24/25 11:36 AM)UA Spec DescClean Catch (07/24/25 11:36 AM)Clean Catch (07/24/25 11:28 AM)UA Blood [Negative mg/dL]Negative mg/dL (07/24/25 11:36 AM)UA Clarity [Clear]Clear (07/24/25 11:36 AM)UA pH [5.0-9.0]6.0 *NA* (07/24/25 11:36 AM)UA Spec Grav [1.005-1.030]1.029 *NA* (07/24/25 11:36 AM) 1Interpretive Data: Microscopic readings are only performed on those samples that meet specific criteria set forth by [facility]. Social History Social History TypeResponseSmoking StatusFormer smoker, quit more than 30 days ago;Never; Type: Cigarettes; Previous treatment: None; Concerns about tobacco use in household: No; Tobacco use per day: 20; Started at age: 16.0; Stopped at age: 45; entered on: 07/24/25Birth SexFemaleSex RepresentationFemale (finding) Patient Care team information Care Team Personnel Name: FAVIAN LUNA MD Position: FT Physician Member Role: Primary Care Physician Address: [address] [place], [place] [address] Telecom: Name: ALBERTO CUBA, SAHU Member Role: Family Medicine Address: [address] [place] [address] Telecom: Care Team Related Persons Name: MAUDE BAILEY Name: MAUDE BAILEY Name: KEESHA VILLAFUERTE Name: MAXIMUS HERRMANN Insurance Providers Guarantor name: Health Plan Information #: 1 Payer: [employer] Payer Identifier: [id number] Member Number: [id number] Group Number: [id number] Subscriber Identifier: [id number] Relationship to Subscriber: self Coverage Type: MEDICARE Coverage Verification Date: Telecom: [phone] Address: [address] [address]
--- OUTSIDE RECORDS SUMMARY | 2025-07-24 23:59 | XMS_ITS | Continuity of Care Document ---
Author Organization [facility] Address [address] [place] [address] Care Team Providers Care Calender Wind Up Helper Name Role Phone FAVIAN LUNA Primary Care Physician [phone] Encounter [facility] [id number] Date(s): 07/24/25 - 07/24/25 [facility] [address] [place], [place] [address] Encounter Diagnosis Incomplete emptying of bladder(Discharge Diagnosis) - 07/24/25 Mixed incontinence urge and stress(Discharge Diagnosis) - 07/24/25 Asymptomatic microscopic hematuria(Discharge Diagnosis) - 07/24/25 Asymptomatic bacteriuria(Discharge Diagnosis) - 07/24/25 Discharge Disposition: Home (Routine DC) Attending Physician: Danna King MD Referring Physician: FAVIAN LUNA MD Encounter Type: Clinic Allergies, Adverse Reactions, Alerts No Known Allergies Immunizations Given and Recorded VaccineDateStatusRefusal Reasoninfluenza virus vaccine, ufxkkygcrdk52/14/23 Recordedinfluenza virus vaccine, evyzshxretk02/27/22Recordedinfluenza virus vaccine, nwlxemaefle61/9/21Recordedinfluenza virus vaccine, jntuhdigdgg37/23/20 Recordedinfluenza virus vaccine, mexfveacyny07/25/Recordedinfluenza virus vaccine, hsmjgvhxciy30/24/Recordedinfluenza virus vaccine, fvavlzxoyrr57/18/16 Recordedinfluenza virus vaccine, /14/15Recordedinfluenza virus vaccine, kdlnzuzjwuq63/1/15Recordedinfluenza virus vaccine, knnozvlrqhh06/31/14 Recordedinfluenza virus vaccine, dvxicttmqyd02/26/13Recordedpneumococcal 23- valent ygtybql15/9/58XjjljphzICGM-MrB-3 (COVID-19) mRNA-1273 vaccine11/18/20 RoohisypAVJT-IfX-4 (COVID-19) mRNA-1273 vaccine10/20/20Recordedpneumococcal 13- valent cbxddar40/23/20Recordedpneumococcal 13-valent mefpoyf81/24/17Recorded Medications acetaminophen-hydrocodone 325 mg-5 mg oral tablet [...] Daily, # 90 cap(s), Refills(s) 0, [id number], cm, 01/11/23 10:30:00 EDT, Height/Length [...] Daily, # 90 tab(s), Refills(s) 0, [id number], cm, 01/11/23 10:30:00 EDT, Height/Length Dosing, 107.2, kg, 01/11/23 10:30:00 EDT, Weight Dosing Start Date: 02/15/23 Status: Ordered Medication Dispense Status: Completed Quantity: 90.0 Unit: tab(s) Total Allowed Fills: 1 Fills Dispensed: 0 Problem List ConditionConfirmationCourseEffective DatesStatusHealth StatusInformantArthritis ConfirmedActiveAsymptomatic microscopic hematuriaConfirmedActiveAtrial fibrillationConfirmedActiveOsteoarthritis of both kneesConfirmedActiveBMI 50.0- 59.9, adultConfirmedActiveCervical radiculopathyConfirmedActiveChronic obstructive pulmonary diseaseConfirmed01/12/12ActiveChronic obstructive pulmonary diseaseConfirmedActiveCHF (congestive heart failure)ConfirmedActiveCoronary atherosclerosisConfirmed01/12/1218BjpveoCpigpjxzjh5JquyfjchiZllzyyotZkzteaxjo hypertensionConfirmed01/13/12ActiveHistory of ulcer diseaseConfirmedActiveDeafness ConfirmedActiveHeart tixrhssWcvazkziaHqvovsNrsyzpzy3WendkxxqzWczhjeYrptii hernia ConfirmedActiveHiatal hernia with GERDConfirmedActiveHistory of strokeConfirmed ResolvedHypocalcemiaConfirmedActiveIncomplete emptying of bladderConfirmedActive Mixed incontinence urge and stressConfirmedActiveIron deficiency anemiaConfirmed ActiveOsteoarthritis of lumbar spineConfirmedActiveMigrainesConfirmedResolved Class 3 obesityConfirmedActivePositive fecal occult blood testConfirmedActive PSVT (paroxysmal supraventricular tachycardia)ConfirmedActivePeptic ulcer diseaseConfirmedActiveSinus node dysfunctionConfirmed10/07/20ActiveSpinal stenosisConfirmedActiveFatty inmwx4HkxdkduztZaqyssCJT (urinary tract infection) ConfirmedActiveVenous insufficiencyConfirmedActiveVitamin D deficiencyConfirmed Active 1Per pt she had a bought of depresseion after her but she denies any chronic depression. 3non alcoholic Procedures ProcedureDateRelated DiagnosisBody SiteStatusColonoscopy03/07/24CompletedEGD - esophagogastroduodenoscopy03/07/24CompletedCardiac jqiszysyt92/9/22Completed History of right total knee replacement09/12/03CompletedHistory of left total knee replacement09/12/01CompletedAppendectomyCompletedArthroscopy of cyrz6Nwfgkzgsc Arthroscopy of wczvyvbk0TuqhgqtmlDjwcjft acdbxtoa4StsepntcuKragzlqxmey4Duqdnyhvb Ligation of fallopian tube (procedure)CompletedRotator cuff ubsbkt8XrcsdnebaDUN BSO - Total abdominal hysterectomy and bilateral salpingo-oophorectomyCompleted 1Dr. Natasha 3left shoulder tear repaired 08/25 [age]/ mild CAD 21148 repeat 10 years 6right Social History Social History TypeResponseSmoking StatusFormer smoker, quit more than 30 days ago;Never; Type: Cigarettes; Previous treatment: None; Concerns about tobacco use in household: No; Tobacco use per day: 20; Started at age: 16.0; Stopped at age: 45; entered on: 07/24/25Birth SexFemaleSex RepresentationFemale (finding) Hospital Discharge Instructions Patient Education 07/24/2025 12:02:53 Urinary Incontinence Urinary Incontinence Urinary incontinence refers to a condition in which a person is unable to control where and when topass urine. A person with this condition will urinate involuntarily. This means that the person urinates when he or she does not mean to. What are the causes? This condition may be caused by: ??? Medicines. ??? Infections. ??? Constipation. ??? Overactive bladder muscles. ??? Weak bladder muscles. ??? Weak pelvic floor muscles. These muscles provide support for the bladder, intestine, and, in women, the uterus. ??? Enlarged prostate in men. The prostate is a gland near the bladder. When it gets too big, it can pinch the urethra. With the urethra blocked, the bladder can weaken and lose the ability to empty properly. ??? Surgery. ??? Emotional factors, such as anxiety, stress, or post-traumatic stress disorder (PTSD). ??? Spinal cord injury, nerve injury, or other neurological conditions. ??? Pelvic organ prolapse. This happens in women when organs move out of place and into the vagina.This movement can prevent the bladder and urethra from working properly. What increases the risk? The following factors may make you more likely to develop this condition: ??? Age. The older you are, the higher the risk. ??? Obesity. ??? Being physically inactive. ??? and childbirth. ??? Menopause. ??? Diseases that affect the nerves or spinal cord. ??? Long-term, or chronic, coughing. This can increase pressure on the bladder and pelvic floor muscles. What are the signs or symptoms? Symptoms may vary depending on the type of urinary incontinence you have. They include: ??? A sudden urge to urinate, and passing urine involuntarily before you can get to a bathroom (urge incontinence). ??? Suddenly passing urine when doing activities that force urine to pass, such as coughing, laughing, exercising, or sneezing (stress incontinence). ??? Needing to urinate often but urinating only a small amount, or constantly dribbling urine (overflow incontinence). ??? Urinating because you cannot get to the bathroom in time due to a physical disability, such as arthritis or injury, or due to a communication or thinking problem, such as Alzheimer's disease (functional incontinence). How is this diagnosed? This condition may be diagnosed based on: ??? Your medical history. ??? A physical exam. ??? Tests, such as: ??? Urine tests. ??? X-rays of your kidney and bladder. ??? Ultrasound. ??? CT scan. ??? Cystoscopy. In this procedure, a health care provider inserts a tube with a light and camera (cystoscope) through the urethra and into the bladder to check for problems. ??? Urodynamic testing. These tests assess how well the bladder, urethra, and sphincter can store and release urine. There are different types of urodynamic tests, and they vary depending on what thetest is measuring. To help diagnose your condition, your health care provider may recommend that you keep a log of when you urinate and how much you urinate. How is this treated? Treatment for this condition depends on the type of incontinence that you have and its cause. Treatment may include: ??? Lifestyle changes, such as: ??? Quitting smoking. ??? Maintaining a healthy weight. ??? Staying active. Try to get 150 minutes of moderate-intensity exercise every week. Ask your health care provider which activities are safe for you. ??? Eating a healthy diet. ??? Avoid high-fat foods, like fried foods. ??? Avoid refined carbohydrates like white bread and white rice. ??? Limit how much alcohol and caffeine you drink. ??? Increase your fiber intake. Healthy sources of fiber include beans, whole grains, and fresh fruits and vegetables. ??? Behavioral changes, such as: ??? Pelvic floor muscle exercises. ??? Bladder training, such as lengthening the amount of time between bathroom breaks, or using the bathroom at regular intervals. ??? Using techniques to suppress bladder urges. This can include distraction techniques or controlled breathing exercises. ??? Medicines, such as: ??? Medicines to relax the bladder muscles and prevent bladder spasms. ??? Medicines to help slow or prevent the growth of a man's prostate. ??? Botox injections. These can help relax the bladder muscles. ??? Treatments, such as: ??? Using pulses of electricity to help change bladder reflexes (electrical nerve stimulation). ??? For women, using a medical reception to prevent urine leaks. This is a small, tampon-like, disposable device that is inserted into the urethra. ??? Injecting collagen or carbon beads (bulking agents) into the urinary sphincter. These can help thicken tissue and close the bladder opening. ??? Surgery. Follow these instructions at home: Lifestyle ??? Limit alcohol and caffeine. These can fill your bladder quickly and irritate it. ??? Keep yourself clean to help prevent odors and skin damage. Ask your health care provider about special skin creams and cleansers that can protect the skin from urine. ??? Consider wearing pads or adult diapers. Make sure to change them regularly, and always change them right after experiencing incontinence. General instructions ??? Take vrez-aam-sgxsvhn and prescription medicines only as told by your health care provider. ??? Use the bathroom about every 3???4 hours, even if you do not feel the need to urinate. Try to empty your bladder completely every time. After urinating, wait a minute. Then try to urinate again. ??? Make sure you are in a relaxed position while urinating. ??? If your incontinence is caused by nerve problems, keep a log of the medicines you take and the times you go to the bathroom. ??? Keep all follow-up visits. This is important. Where to find more information ??? National [place] of Diabetes and Digestive and Kidney Diseases: www.niddk.nih.gov ??? [place] [employer]: www.urologyhealth.org Contact a health care provider if: ??? You have pain that gets worse. ??? Your incontinence gets worse. Get help right away if: ??? You have a fever or chills. ??? You are unable to urinate. ??? You have redness in your groin area or down your legs. Summary ??? Urinary incontinence refers to a condition in which a person is unable to control where and when to pass urine. ??? This condition may be caused by medicines, infection, weak bladder muscles, weak pelvic floor muscles, enlargement of the prostate (in men), or surgery. ??? Factors such as older age, obesity, and childbirth, menopause, neurological diseases,and chronic coughing may increase your risk for developing this condition. ??? Types of urinary incontinence include urge incontinence, stress incontinence, overflow incontinence, and functional incontinence. ??? This condition is usually treated first with lifestyle and behavioral changes, such as quittingsmoking, eating a healthier diet, and doing regular pelvic floor exercises. Other treatment optionsinclude medicines, bulking agents, medical devices, electrical nerve stimulation, or surgery. This information is not intended to replace advice given to you by your health care provider. Make sure you discuss any questions you have with your health care provider. Document Revised: 04/03/2021 Document Reviewed: 04/03/2021 [employer] Patient Education ?? 2023 [employer] Follow Up Care 07/23/2025 12:44:44 With:Fernando CUBA, Danna Piña, URL, URO Address: [address] [place] [address]- When: Unknown Comments:PRN?? Patient Care team information Care Team Personnel Name: FAVIAN LUNA MD Position: FT Physician Member Role: Primary Care Physician Address: [address] [place], [place] [address] Telecom: Name: SHAIK DOMINGUEZ MDH Member Role: Family Medicine Address: [address] [place] [id number] Telecom: Care Team Related Persons Name: MAUDE BAILEY Name: MAUDE BAILEY Name: KEESHA VILLAFUERTE Name: MAXIMUS HERRMANN Insurance Providers Guarantor name: Health Plan Information #: 1 Payer: [employer] Payer Identifier: [id number] Member Number: [id number] Group Number: [id number] Subscriber Identifier: [id number] Relationship to Subscriber: self Coverage Type: MEDICARE Coverage Verification Date: 25 Telecom: [phone] Address: [facility] [address] [place] [address]
--- OUTSIDE RECORDS SUMMARY | 2025-07-29 23:59 | XMS_ITS | Continuity of Care Document ---
Author Organization [facility] Address [address] [place] [address] Care Team Providers Care Uniform Force Captain Name Role Phone FAVIAN LUNA Primary Care Physician Encounter FT_AMBFIN [id number] Date(s): 07/29/25 - 07/29/25 [facility] [place] [address], [place] [address] Encounter Diagnosis Asymptomatic microscopic hematuria(Discharge Diagnosis) - 07/29/25 Discharge Disposition: Home (Routine DC) Attending Physician: Liliam Cross PA-C Encounter Type: Clinic Allergies, Adverse Reactions, Alerts No Known Allergies Immunizations Given and Recorded VaccineDateStatusRefusal Reasoninfluenza virus vaccine, /14/23 Recordedinfluenza virus vaccine, pkcuosbyjzm81/27/22Recordedinfluenza virus vaccine, gfbptclaiif28/9/21Recordedinfluenza virus vaccine, cjnionulrjm59/23/20 Recordedinfluenza virus vaccine, wlvzinstzci38/25/19Recordedinfluenza virus vaccine, jdvjuatbxuc93/24/17Recordedinfluenza virus vaccine, buyusiixzlo22/18/16 Recordedinfluenza virus vaccine, rudqipobtzg21/14/15Recordedinfluenza virus vaccine, /1/15Recordedinfluenza virus vaccine, obbixxybhqi07/31/14 Recordedinfluenza virus vaccine, axrnzotglck80/26/13Recordedpneumococcal 23- valent tgqjxuz73/9/18QvneotcoGTBO-BqH-1 (COVID-19) mRNA-1273 vaccine11/18/20 KeddgoupNCBC-TcD-0 (COVID-19) mRNA-1273 vaccine10/20/20Recordedpneumococcal 13- valent epckisz92/23/20Recordedpneumococcal 13-valent cqqhqie48/24/17Recorded Medications acetaminophen-hydrocodone 325 mg-5 mg oral tablet [...] Daily, # 90 cap(s), Refills(s) 0, Pharmacy: [facility]/pharmacy #[id number], 141, cm, 01/11/23 10:30:00 EDT, [...] Daily, # 90 tab(s), Refills(s) 0, Pharmacy: [facility]/pharmacy #[id number], 141, cm, 01/11/23 10:30:00 EDT, Height/Length Dosing, 107.2, kg, 01/11/23 10:30:00 EDT, Weight Dosing Start Date: 02/15/23 Status: Ordered Medication Dispense Status: Completed Quantity: 90.0 Unit: tab(s) Total Allowed Fills: 1 Fills Dispensed: 0 Problem List ConditionConfirmationCourseEffective DatesStatusHealth StatusInformantArthritis ConfirmedActiveAsymptomatic microscopic hematuriaConfirmedActiveAtrial fibrillationConfirmedActiveOsteoarthritis of both kneesConfirmedActiveBMI 50.0- 59.9, adultConfirmedActiveCervical radiculopathyConfirmedActiveChronic obstructive pulmonary diseaseConfirmed01/12/12ActiveChronic obstructive pulmonary diseaseConfirmedActiveCHF (congestive heart failure)ConfirmedActiveCoronary atherosclerosisConfirmed01/12/1209NrwunySfgoavqyfb5NwukeyhwuTucajkxkJxtyshnrq hypertensionConfirmed01/13/12ActiveHistory of ulcer diseaseConfirmedActiveDeafness ConfirmedActiveHeart oxkoyagCcoqbqjhoCioavqTgdsotaj3AytbhslrbCpcvhxZvakdo hernia ConfirmedActiveHiatal hernia with GERDConfirmedActiveHistory of strokeConfirmed ResolvedHypocalcemiaConfirmedActiveIncomplete emptying of bladderConfirmedActive Mixed incontinence urge and stressConfirmedActiveIron deficiency anemiaConfirmed ActiveOsteoarthritis of lumbar spineConfirmedActiveMigrainesConfirmedResolved Class 3 obesityConfirmedActivePositive fecal occult blood testConfirmedActive PSVT (paroxysmal supraventricular tachycardia)ConfirmedActivePeptic ulcer diseaseConfirmedActiveSinus node dysfunctionConfirmed10/07/20ActiveSpinal stenosisConfirmedActiveFatty ophmn3KsbplqsctCkotyeOIT (urinary tract infection) ConfirmedActiveVenous insufficiencyConfirmedActiveVitamin D deficiencyConfirmed Active 1Per pt she had a bought of depresseion after her but she denies any chronic depression. 3non alcoholic Procedures ProcedureDateRelated DiagnosisBody SiteStatusColonoscopy03/07/24CompletedEGD - esophagogastroduodenoscopy03/07/24CompletedCardiac noogtiycg43/9/22Completed History of right total knee replacement09/12/03CompletedHistory of left total knee replacement09/12/01CompletedAppendectomyCompletedArthroscopy of slzd7Vpomeqiwf Arthroscopy of mvtkyrea8XtrrmcofuUolzkhw nkithcun6AomizdlxsMwzvuylbcmc6Vvijcgksf Ligation of fallopian tube (procedure)CompletedRotator cuff eeradx0LwaugjlfdGQE BSO - Total abdominal hysterectomy and bilateral salpingo-oophorectomyCompleted 1Dr. Natasha 3left shoulder tear repaired 08/25 44/11/ mild CAD 00606 repeat 10 years 6right Social History Social [...] Member Role: Primary Care Physician Address: [address] [place], [place] [address] Telecom: Name: SHAIK DOMINGUEZ MDH Member Role: Family Medicine Address: [address] [place] [address] Telecom: Care Team Related Persons Name: MAUDE BAILEY Name: MAUDE BAILEY Name: KEESHA VILLAFUERTE Name: MAXIMUS HERRMANN Insurance Providers Guarantor name: Health Plan Information #: 1 Payer: [employer] Payer Identifier: [id number] Member Number: [id number] Group Number: [id number] Subscriber Identifier: [id number] Relationship to Subscriber: self Coverage Type: MEDICARE Coverage Verification Date: 25 Telecom: [phone] Address: [address] [address]
--- OUTSIDE RECORDS SUMMARY | 2025-07-29 23:59 | XMS_ITS | Continuity of Care Document ---
Author Organization [facility] Address Unknown Care Team Providers Care Rim Roller Setter Name Role Phone CHERYL FAVIAN Shen Primary Care Physician Encounter [facility] [id number] Date(s): 07/29/25 - 07/29/25 [address], [place] [address] Discharge Disposition: Home (Routine DC) Attending Physician: Liliam Cross PA-C Admitting Physician: Liliam Cross PA-C Encounter Type: Lab Drop off Allergies, Adverse Reactions, Alerts No Known Allergies Treatment Plan Diagnostic Tests Pending * Urine Culture 07/29/25 Immunizations Given and Recorded VaccineDateStatusRefusal Reasoninfluenza virus vaccine, soahwdpkbri01/14/23 Recordedinfluenza virus vaccine, bontuafovur75/27/22Recordedinfluenza virus vaccine, ehyvxykwyax94/9/21Recordedinfluenza virus vaccine, eojqufdqtcs47/23/20 Recordedinfluenza virus vaccine, jwzwlgacsql00/25/19Recordedinfluenza virus vaccine, nemxeolwyfm86/24/17Recordedinfluenza virus vaccine, ouagjkidwjj55/18/16 Recordedinfluenza virus vaccine, hsyxkungbii56/14/Recordedinfluenza virus vaccine, ofbgzbdbyhj70/1/15Recordedinfluenza virus vaccine, wajxekswkcs97/31/14 Recordedinfluenza virus vaccine, zgcdsaqcebe50/26/13Recordedpneumococcal 23- valent blitein57/9/79GzcwskjdWKVO-UqZ-7 (COVID-19) mRNA-1273 vaccine11/18/20 ZhfnpdigATFR-UpX-8 (COVID-19) mRNA-1273 vaccine10/20/20Recordedpneumococcal 13- valent /23/20Recordedpneumococcal 13-valent digeqmr57/24/17Recorded Medications acetaminophen-hydrocodone 325 mg-5 mg oral tablet [...] Daily, # 90 cap(s), Refills(s) 0, [id number] 141, cm, 01/11/23 10:30:00 EDT, Height/Length [...] Daily, # 90 tab(s), Refills(s) 0, [id number] 141, cm, 01/11/23 10:30:00 EDT, Height/Length Dosing, 107.2, kg, 01/11/23 10:30:00 EDT, Weight Dosing Start Date: 02/15/23 Status: Ordered Medication Dispense Status: Completed Quantity: 90.0 Unit: tab(s) Total Allowed Fills: 1 Fills Dispensed: 0 Problem List ConditionConfirmationCourseEffective DatesStatusHealth StatusInformantArthritis ConfirmedActiveAsymptomatic microscopic hematuriaConfirmedActiveAtrial fibrillationConfirmedActiveOsteoarthritis of both kneesConfirmedActiveBMI 50.0- 59.9, adultConfirmedActiveCervical radiculopathyConfirmedActiveChronic obstructive pulmonary diseaseConfirmed01/12/12ActiveChronic obstructive pulmonary diseaseConfirmedActiveCHF (congestive heart failure)ConfirmedActiveCoronary atherosclerosisConfirmed01/12/1216MixrjpNdhxdwssfy7FkavfwlqfUtilcvtpHrdspwnjq hypertensionConfirmed01/13/12ActiveHistory of ulcer diseaseConfirmedActiveDeafness ConfirmedActiveHeart brlvaoyIwiqvvgwsEwtagfLijujymk8GwyoqutbjPknsflEfsgyu hernia ConfirmedActiveHiatal hernia with GERDConfirmedActiveHistory of strokeConfirmed ResolvedHypocalcemiaConfirmedActiveIncomplete emptying of bladderConfirmedActive Mixed incontinence urge and stressConfirmedActiveIron deficiency anemiaConfirmed ActiveOsteoarthritis of lumbar spineConfirmedActiveMigrainesConfirmedResolved Class 3 obesityConfirmedActivePositive fecal occult blood testConfirmedActive PSVT (paroxysmal supraventricular tachycardia)ConfirmedActivePeptic ulcer diseaseConfirmedActiveSinus node dysfunctionConfirmed10/07/20ActiveSpinal stenosisConfirmedActiveFatty zactu0CvygjgqzcMlhjovRGH (urinary tract infection) ConfirmedActiveVenous insufficiencyConfirmedActiveVitamin D deficiencyConfirmed Active 1Per pt she had a bought of depresseion after her but she denies any chronic depression. 3non alcoholic Procedures ProcedureDateRelated DiagnosisBody SiteStatusColonoscopy03/07/24CompletedEGD - esophagogastroduodenoscopy03/07/24CompletedCardiac paumqopiq73/9/22Completed History of right total knee replacement09/12/03CompletedHistory of left total knee replacement09/12/01CompletedAppendectomyCompletedArthroscopy of gral4Nbaeffzla Arthroscopy of bsljgtwa9NjtrkpjlvKkkoeil fotoppnw3VsozjelqsOytootrprcr0Dlzsuzfgp Ligation of fallopian tube (procedure)CompletedRotator cuff lpzcaj9NbqxnjdvoJFF BSO - Total abdominal hysterectomy and bilateral salpingo-oophorectomyCompleted 1Dr. Natasha 3left shoulder tear repaired 08/25 44/11/ mild CAD 52335 repeat 10 years 6right Results Laboratory List NameDateUrinalysis with Micro07/29/25Urinalysis with Micro SP109/28/24 Most recent to oldest [Reference Range]:1UA Bili [Negative mg/dL]Negative mg/dL (07/29/25 12:25 PM)UA Color [Yellow]Yellow1 (07/29/25 12:25 PM)UA Glucose [Negative mg/dL]Negative mg/dL (07/29/25 12:25 PM)UA Ketones [Negative mg/dL]Negative mg/dL (07/29/25 12:25 PM)UA Leuk Est [Negative Rosette/uL]Negative Rosette/uL (07/29/25 12:25 PM)UA Nitrite [Negative mg/dL]Negative mg/dL (07/29/25 12:25 PM)UA Protein [Negative mg/dL]Trace mg/dL *ABN* (07/29/25 12:25 PM)UA Urobilinogen [Negative mg/dL]Negative mg/dL (07/29/25 12:25 PM)UA Spec DescClean Catch (07/29/25 12:25 PM)UA Blood [Negative mg/dL]Negative mg/dL (07/29/25 12:25 PM)UA Clarity [Clear]Clear (07/29/25 12:25 PM)UA pH [5.0-9.0]6.0 *NA* (07/29/25 12:25 PM)UA Spec Grav [1.005-1.030]1.030 *NA* (07/29/25 12:25 PM) 1Interpretive Data: Microscopic readings are only performed on those samples that meet specific criteria set forth by [facility]. Social History Social History TypeResponseSmoking StatusFormer [...] Member Role: Primary Care Physician Address: [address] [place], [place] [address] Telecom: Name: ALBERTO CUBA, Member Role: Family Medicine Address: [address] [place] [address] Telecom: Care Team Related Persons Name: MAUDE BAILEY Name: MAUDE BAILEY Name: KEESHA VILLAFUERTE Name: MAXIMUS HERRMANN Insurance Providers Guarantor name: Health Plan Information #: 1 Payer: [employer] Payer Identifier: [id number] Member Number: [id number] Group Number: [id number] Subscriber Identifier: [id number] Relationship to Subscriber: self Coverage Type: MEDICARE Coverage Verification Date: Telecom: [phone] Address: [address] [address]
--- OUTSIDE RECORDS SUMMARY | 2025-08-02 12:56 | XMS_ITS | Encounter Summary ---
Author Organization [facility] Address [address] [facility] [place] [address] Care Team Providers Care Offset Second Press Operator Name Role Phone Renny Hansen MD Primary Care Provider [phone] Renny Hansen MD Unavailable [phone] Lisa Ramirez LPN Unavailable Encounter Details DateTypeDepartmentCare Team (Latest Contact Info)Hpszxkjdenp54/13/2025bstract [facility] [facility] [address] [facility] [address] [place] [address] Renny Hansen MD [address] [facility] [address] [place], [place] [address] Social History Tobacco UseTypesPacks/DayYears UsedDateSmoking Tobacco: ZbkwupAhtohpyjii700 Started: 1965Passive Smoke Exposure: PastAlcohol UseStandard Drinks/WeekComments Yes0 (1 standard drink = 0.6 oz pure alcohol)[id number] Health Literacy AnswerDate RecordedHow often do you [...] relatives?Twice a week11/12/2024How often do you attend amish or lutheran services?Patient gwiioued45/03/2025Do you belong to any clubs or organizations such as amish groups, unions, fraWorkiva or athletic groups, or school groups?No11/12/2024How often do you attend meetings of the clubs or organizations you belong to?Patient hotmffqw83/03/2025re you , , , , never , or living with a partner?Living with partner 11/12/2024UDIT-CAnswerDate RecordedQ1: How often do you have a drink containing alcohol?Patient yzbztgjr23/29/2025Q2: How many drinks containing alcohol do you have on a typical day when you are drinking?Patient heexiqqa09/29/2025Q3: How often do you have six or more drinks on one occasion?Patient johuvxko86/29/2025 Overall Financial Resource Strain (CARDIA)AnswerDate RecordedHow hard is it for you to pay for the very basics like food, housing, medical care, and heating?Not hard at all11/12/2024PHQ-2AnswerDate RecordedPatient Health Questionnaire-2 Juzcb881Fin[facility] [place] of Occupational Health - Occupational Stress QuestionnaireAnswerDate RecordedDo you feel stress - tense, restless, nervous, or anxious, or unable to sleep at night because yourmind is troubled all the time - these days?To some rpoalb6711/12/2024Exercise Vital SignAnswerDate Recorded On average, how many [...] steady place to sleep or slept in [facility] (including now)?Patient pgyhqar0808/30/2023Housing Stability Vital SignAnswerDate RecordedIn the last 12 months, was there a time when you were not able to pay the mortgage or rent on time?No11/12/2024In the past 12 months, how many times have you moved where you were living?t any time in the past 12 months, were you homeless or living in a alf (including now)?No 11/12/2024CommentsUnknownSex and Gender InformationValueDate RecordedSex Assigned at BirthNot on fileLegal RuiCbcpve55/15/2023 6:35 PM EDTGender Identity Not on fileSexual OrientationNot on filedocumented as of this encounter Plan of Treatment DateTypeDepartmentCare Team (Latest Contact Info)Hjalsrhdswt11/12/2026 11:00 AM ESTOffice Visit [facility] [place] [facility] [address] [facility] [address] [place] [address] Renny Hansen MD [address] [facility] [address] [place] [address] documented as of this encounter Visit Diagnoses Not on filedocumented in this encounter Additional Health Concerns AssessmentNoted TimePHQ-9 Depression Total Score: 2:00 PM EST documented as of this encounter Care Teams Team MemberRelationshipSpecialtyStart DateEnd Renny Hansen MD [address] [facility] [address] [place] [address] PCP - GeneralInternal Medicine09/19/24 Renny Hansen MD [address] [facility] [address] [place] [address] PCP - Medical [place]09/12/2511 Lisa Ramirez LPN [address] [facility] [address] [place] [address] 12/05/24documented as of this encounter
--- OUTSIDE RECORDS SUMMARY | 2025-08-02 12:56 | XMS_ITS | Encounter Summary ---
Author Organization [facility] Address [address] [facility] [place] [address] Care Team Providers Care Roller Print Tender Name Role Phone Renny Hansen MD Primary Care Provider [phone] Renny Hansen MD Unavailable [phone] Lisa Ramirez LPN Unavailable Encounter Details DateTypeDepartmentCare Team (Latest Contact Info)Pngaupbejky04/18/2025bstract [facility] [place] [facility] [address] [facility] [address] [place] [address] Renny Hansen MD [address] [facility] [address] [place], [place] [address] Social History Tobacco UseTypesPacks/DayYears UsedDateSmoking Tobacco: GumlypPwkhoqxuez567 Started: 1965Passive Smoke Exposure: PastAlcohol UseStandard Drinks/WeekComments Yes0 (1 standard drink = 0.6 oz pure alcohol)[id number] Health Literacy AnswerDate RecordedHow often do you [...] relatives?Twice a week11/12/2024How often do you attend buddhist or jainism services?Patient lpqkchpi79/03/2025Do you belong to any clubs or organizations such as buddhist groups, unions, [email or web address] or athletic groups, or school groups?No11/12/2024How often do you attend meetings of the clubs or organizations you belong to?Patient ahzhnrqn69/03/2025re you , , , , never , or living with a partner?Living with partner 11/12/2024UDIT-CAnswerDate RecordedQ1: How often do you have a drink containing alcohol?Patient ewoquypo40/29/2025Q2: How many drinks containing alcohol do you have on a typical day when you are drinking?Patient ulqjcwsy45/29/2025Q3: How often do you have six or more drinks on one occasion?Patient /29/2025 Overall Financial Resource Strain (CARDIA)AnswerDate RecordedHow hard is it for you to pay for the very basics like food, housing, medical care, and heating?Not hard at all11/12/2024PHQ-2AnswerDate RecordedPatient Health Questionnaire-2 Mvukb345[facility] [place] of Occupational Health - Occupational Stress QuestionnaireAnswerDate RecordedDo you feel stress - tense, restless, nervous, or anxious, or unable to sleep at night because yourmind is troubled all the time - these days?To some drtwdm2111/12/2024Exercise Vital SignAnswerDate Recorded On average, how many [...] steady place to sleep or slept in [facility] (including now)?Patient pzuagys5708/30/2023Housing Stability Vital SignAnswerDate RecordedIn the last 12 months, was there a time when you were not able to pay the mortgage or rent on time?No11/12/2024In the past 12 months, how many times have you moved where you were living?t any time in the past 12 months, were you homeless or living in a fci (including now)?No 11/12/2024CommentsUnknownSex and Gender InformationValueDate RecordedSex Assigned at BirthNot on fileLegal LplAxdiji09/15/2023 6:35 PM EDTGender Identity Not on fileSexual OrientationNot on filedocumented as of this encounter Plan of Treatment DateTypeDepartmentCare Team (Latest Contact Info)Xdstyycdtrf35/12/2026 11:00 AM ESTOffice Visit [facility] [place] [facility] [address] [facility] [address] [place] [address] Renny Hansen MD [address] [facility] [address] [place] [address] documented as of this encounter Visit Diagnoses Not on filedocumented in this encounter Additional Health Concerns AssessmentNoted TimePHQ-9 Depression Total Score: 2:00 PM EST documented as of this encounter Care Teams Team MemberRelationshipSpecialtyStart DateEnd Renny Hansen MD [address] [facility] [address] [place] [address] PCP - GeneralInternal Medicine09/19/24 Rneny Hansen MD [address] [facility] [address] [place] [address] PCP - Medical [place]09/12/2511 Lisa Ramirez LPN [address] [facility] [address] [place] [address] 12/05/24documented as of this encounter
--- OUTSIDE RECORDS SUMMARY | 2025-08-02 12:56 | XMS_ITS | Encounter Summary ---
Author Organization [facility] Address [address] [facility] [place] [address] Care Team Providers Care Oven Equipment Repairer Name Role Phone Renny Hansen MD Primary Care Provider [phone] Renny Hansen MD Unavailable [phone] Lisa Ramirez LPN Unavailable Encounter Details DateTypeDepartmentCare Team (Latest Contact Info)Wmhcfzqowrz18/12/2025bstract [facility] [place] [facility] [address] [facility] [address] [place] [address] Renny Hansen MD [address] [facility] [address] [place], [place] [address] Social History Tobacco UseTypesPacks/DayYears UsedDateSmoking Tobacco: XptpfpZajtacmdkv122 Started: 1965Passive Smoke Exposure: PastAlcohol UseStandard Drinks/WeekComments Yes0 (1 standard drink = 0.6 oz pure alcohol)QRGCEAIAXMNL1790 Health Literacy AnswerDate RecordedHow often do you [...] relatives?Twice a week11/12/2024How often do you attend advent or episcopal services?Patient xfaelbkl78/03/2025Do you belong to any clubs or organizations such as advent groups, unions, fraThe Idle Man or athletic groups, or school groups?No11/12/2024How often do you attend meetings of the clubs or organizations you belong to?Patient exhosfqd81/03/2025re you , , , , never , or living with a partner?Living with partner 11/12/2024UDIT-CAnswerDate RecordedQ1: How often do you have a drink containing alcohol?Patient /29/2025Q2: How many drinks containing alcohol do you have on a typical day when you are drinking?Patient qzzicsdf40/29/2025Q3: How often do you have six or more drinks on one occasion?Patient zxvhevgt64/29/2025 Overall Financial Resource Strain (CARDIA)AnswerDate RecordedHow hard is it for you to pay for the very basics like food, housing, medical care, and heating?Not hard at all11/12/2024PHQ-2AnswerDate RecordedPatient Health Questionnaire-2 Gauiy358Finj[facility] [place] of Occupational Health - Occupational Stress QuestionnaireAnswerDate RecordedDo you feel stress - tense, restless, nervous, or anxious, or unable to sleep at night because yourmind is troubled all the time - these days?To some dapfdn3411/12/2024Exercise Vital SignAnswerDate Recorded On average, how many [...] steady place to sleep or slept in [facility] (including now)?Patient zbumqcv3408/30/2023Housing Stability Vital SignAnswerDate RecordedIn the last 12 months, was there a time when you were not able to pay the mortgage or rent on time?No11/12/2024In the past 12 months, how many times have you moved where you were living?t any time in the past 12 months, were you homeless or living in a mcc (including now)?No 11/12/2024CommentsUnknownSex and Gender InformationValueDate RecordedSex Assigned at BirthNot on fileLegal ZasPjqmsp04/15/2023 6:35 PM EDTGender Identity Not on fileSexual OrientationNot on filedocumented as of this encounter Plan of Treatment DateTypeDepartmentCare Team (Latest Contact Info)Qntygulrkzl52/12/2026 11:00 AM ESTOffice Visit [facility] [place] [facility] [address] [facility] [address] [place] [address] Renny Hansen MD [address] [facility] [address] [place] [address] documented as of this encounter Visit Diagnoses Not on filedocumented in this encounter Additional Health Concerns AssessmentNoted TimePHQ-9 Depression Total Score: 2:00 PM EST documented as of this encounter Care Teams Team MemberRelationshipSpecialtyStart DateEnd Renny Hansen MD [address] [facility] 110 [place] [address] PCP - GeneralInternal Medicine09/19/24 Renny Hansen MD [address] [facility] [address] [place] [address] PCP - Medical [place]09/12/2511 Lisa Ramirez LPN [address] [facility] [address] [place] [address] 12/05/24documented as of this encounter
--- OUTSIDE RECORDS SUMMARY | 2025-08-02 12:57 | XMS_ITS | Encounter Summary ---
Author Organization [facility] Address [address] [facility] [place] [address] Care Team Providers Care Sighter Name Role Phone Renny Hansen MD Primary Care Provider [phone] Renny Hansen MD Unavailable [phone] Lisa Ramirez LPN Unavailable Encounter Details DateTypeDepartmentCare Team (Latest Contact Info)Osyvpgnujqv99/21/2025bstract [facility] [address] [facility] 110 [place] [address] Renny Hansen MD [address] [facility] 110 [place], [place] [id number] Social History Tobacco UseTypesPacks/DayYears UsedDateSmoking Tobacco: XynzodAfbrojtibn546 Started: 1965Passive Smoke Exposure: PastAlcohol UseStandard Drinks/WeekComments Yes0 (1 standard drink = 0.6 oz pure alcohol)[id number] Health Literacy AnswerDate RecordedHow often do you [...] relatives?Twice a week11/12/2024How often do you attend yarsanism or amish services?Patient /03/2025Do you belong to any clubs or organizations such as yarsanism groups, unions, fraanywayanyday or athletic groups, or school groups?No11/12/2024How often do you attend meetings of the clubs or organizations you belong to?Patient abwaanzs43/03/2025re you , , , , never , or living with a partner?Living with partner 11/12/2024UDIT-CAnswerDate RecordedQ1: How often do you have a drink containing alcohol?Patient hupfgkbw14/29/2025Q2: How many drinks containing alcohol do you have on a typical day when you are drinking?Patient amzduxpm11/29/2025Q3: How often do you have six or more drinks on one occasion?Patient yujxtacj02/29/2025 Overall Financial Resource Strain (CARDIA)AnswerDate RecordedHow hard is it for you to pay for the very basics like food, housing, medical care, and heating?Not hard at all11/12/2024PHQ-2AnswerDate RecordedPatient Health Questionnaire-2 Edsur722Finbrigham city community hospital [place] of Occupational Health - Occupational Stress QuestionnaireAnswerDate RecordedDo you feel stress - tense, restless, nervous, or anxious, or unable to sleep at night because yourmind is troubled all the time - these days?To some oamzuy0511/12/2024Exercise Vital SignAnswerDate Recorded On average, how many [...] steady place to sleep or slept in [facility] (including now)?Patient dfnpnit0108/30/2023Housing Stability Vital SignAnswerDate RecordedIn the last 12 [...] InformationValueDate RecordedSex Assigned at BirthNot on fileLegal EfiIjkswf64/15/2023 6:35 PM EDTGender Identity Not on fileSexual OrientationNot on filedocumented as of this encounter Plan of Treatment DateTypeDepartmentCare Team (Latest Contact Info)Qcnbegucxkh28/12/2026 11:00 AM ESTOffice Visit [facility] [address] [facility] 110 [place] [address] Renny Hansen MD [address] [facility] [address] [place] [address] documented as of this encounter Visit Diagnoses Not on filedocumented in this encounter Additional Health Concerns AssessmentNoted TimePHQ-9 Depression Total Score: 2:00 PM EST documented as of this encounter Care Teams Team MemberRelationshipSpecialtyStart DateEnd Renny Hansen MD [address] [facility] 110 [place] [address] PCP - GeneralInternal Medicine09/19/24 Renny Hansen MD [address] [facility] 110 [place] [address] PCP - Medical [place]09/12/2511 Lisa Ramirez LPN [address] [facility] [address] [place] [address] 12/05/24documented as of this encounter
--- OUTSIDE RECORDS SUMMARY | 2025-08-02 12:57 | XMS_ITS | Clinical Summary ---
Author Organization [facility] Address [address] [place] [address] Care Team Providers Care Broke Worker Name Role Phone Renny Hansen MD Primary Care Provider [phone] Balta Cardenas DO Unavailable [phone] Allergies Active AllergyReactionsCriticalityNoted IperGavxpqqvUoysybigHcezVsn89/11/2025 Medications MedicationSigDispense QuantityRefillsLast FilledStart DateEnd DateStatus cholecalciferol [...] mouth in the morning. 90 tablet ctive Additional Information Patient not taking.Reported on 07/10/2025 verapamil ER (Veralan) 180 mg 24 hr capsule Indications:Essential hypertensionTake 2 capsules (360 mg) by mouth once daily as directed. Do not crush or chew. 180 capsule 5Active furosemide (Lasix) 40 mg tablet Indications:Benign hypertensive heart disease with heart failure (CMS/HCC)Take 1 tablet (40 mg) by mouth two times daily. 180 tablet //6Active spironolactone (Aldactone) 25 mg tablet Indications:Edema, unspecifiedTake 1 tablet (25 mg) by mouth in the morning. 90 tablet 5Active penicillin v potassium (Veetid) 500 mg tablet Indications: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Take 1 tablet (500 mg) by mouth Twice daily at 6am and 6pm. 120 tablet /5Active promethazine-codeine (Phenergan W/Codeine) 6.25-10 mg/5 mL syrup Take 5 mL by mouth every 6 (six) hours if needed.5Active Active Problems ProblemNoted DateDiagnosed DateDisc degeneration, tvxavuxrzgh67/28/2025Lumbar disc herniation with fcpywzoxnqdvc74/28/2025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02/22/2025HF (congestive heart failure)09/24/2024History of ulcer wgcnpky4709/24/2024Positive fecal occult blood test09/24/2024 Lstxgoaexmdoue49/13/2025Gastroesophageal reflux disease without esophagitis 08/16/2024ulmonary segeqfcublaw78/06/2024Obstructive sleep apnea syndrome 07/18/2024bnormal CT scan, neck07/05/2024nemia due to multiple mechanisms 07/05/2024xillary ytridoaumgwvafb41/24/2024egenerative disc disease, cervical 07/05/2024Irritable bowel iklygpbr55/24/2024Sigmoid uzbevvsleryskz89/24/2024Iron deficiency anemia due to chronic blood loss03/12/2024ardiac pacemaker in situ 01/19/2024iastolic lbyvexdzars39/09/2024rthritis of right acromioclavicular joint/losed fracture of fifth metatarsal bone11/07/2023 01/17/2024ontusion of left ossbqsbs42/03/2024Impingement syndrome of right wtjmpowq76/03/2024Shoulder pain10/17/2023cute pain of left knee /rthritis of left shoulder /hronic bilateral low back pain with wtqcgebc08/03/2024 Overview (01/17/2024): Last Assessment & Plan: Chronic LBP with bilateral radiculopathy. MRI shows multilevel degenerative changes, worse at L4-5. Could not tolerate gabapentin and lyrica Patient had spidural spinal injection and that seems to be helping her pain. Pain is reasonably controlled. Monitor. Medicare annual wellness visit, rmkxtpilxt63/26/202305/03/2024 Overview (01/17/2024): Last Assessment & Plan: Patient here for medicare wellness. Doing well overall other than chronic back pain. Upto date on Colon Cancer screening, breast cancer screening. Reviewed medications, counseled on lifestyle measures, importance of compliance. Vitamin D yepvcqqjam93/20/2023Venous wmbltocudkeys19/20/2023Steatosis of liver 03/01/2023 Overview (03/01/2023): non alcoholic Spinal ygdyeogh45/20/2023astric ulcer03/01/2023Osteoarthritis of lumbar spine 03/01/2023Osteoarthritis of both knees03/01/20239549Emuptvxtkult88/20/2023Herpes ulgbht5603/01/2023 Overview (03/01/2023): 05/2019 Cervical eiskwgvpbbdgz30/20/2023aroxysmal A-fib11/18/2022 Assessment & Plan (11/18/2022 10:55 AM EST): -device check in may 2022 <1% AF, had 1 mode switch which lasted 6 seconds -will have her get device check to assess AF burden -[id number] 3 -Continue Xarelto 20 mg daily, continue propafenone to 25 mg 3 times a day Sinus node qgcbsqirqms90/26/2021 Assessment & Plan (11/18/2022 10:55 AM EST): - S/p PPM [place] [employer] -We will have her scheduled for device check Okzbsdh2212/29/2012 Assessment & Plan (11/18/2022 10:56 AM EST): Obesity is slightly improving -She was to 255 pounds last visit and today she is 241 pounds -Advised to continue working on weight loss and lifestyle changes Essential atlcosqcavij30/03/2012 Assessment & Plan (11/18/2022 10:54 AM EST): Hypertension is stable -ct medications: aldactone, verapamil, lasix 20mg -managed per PCP Malaise and ucjktzg7601/13/2012Disorder of bursae of shoulder rdiqau9301/12/2012 Chronic obstructive lung zfdycjr8101/12/2012therosclerosis of [place] coronary artery of [place] heart without angina pmprudzz72/02/2012 Assessment & Plan (11/18/2022 10:53 AM EST): Coronary artery disease is stable -no CP or LEA -last cath 2010, mild disease no PCI / stent -continue medications Diaphragmatic bbjsso1701/12/20122686Jxsqp25/02/2012Paroxysmal supraventricular ekttqrnapby12/02/2012 Resolved Problems ProblemNoted DateDiagnosed DateResolved DateAcute on chronic diastolic (congestive) heart /Premature beats02/04/2012 07/10/2025 Encounters DateTypeDepartmentCare EaqgPgumyeqolrf69/04/2025 2:15 PM ESTAncillary Procedure [facility] [address] [place] [address] Encounter for implantable defibrillator reprogramming or check07/10/2025 1:40 PM EDTOffice Visit [facility] [address] [place] [address] Kellie Alva MD Paroxysmal A-fib (CMS/HCC) (Primary Dx); Sinus node dysfunction (CMS/HCC); Cardiac pacemaker in situ; Atherosclerosis of [place] coronary artery of [place] heart without angina pectoris; Pulmonary hypertension (CMS/HCC); Pure hypercholesterolemia; Diastolic dysfunction; Simple chronic bronchitis (CMS/HCC); Obstructive sleep apnea fmkieyhj88/03/2025Orders Only [facility] Infectious Disease [address] [place] [address] Ortega Hines MD 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) 06/14/2025Telephone [facility] Infectious Disease [address] [place] [address] Rosemarie Mistry MA Med Kekhsm2906/14/2025Refill [facility] [place] [place] [address] [place] [address] Roopa Mensah MA Edema, lctfyuaqyoc58/18/2025Telephone [facility] Allergy & Immunology [address] [place] [address] Wanda Hernandez MA 05/15/2025 11:00 AM EDTFollow-Up [facility] Infectious Disease [address] [place] [address] Ortega Hines MD 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) 05/15/2025Orders Only [facility] Infectious Disease [address] [place] [address] ProviderNeeraj MD from Last 3 Months Immunizations ImmunizationAdministration DatesNext DueInfluenza, High Dose Seasonal, Preservative Free08/06/2019Influenza, Seasonal, Quadrivalent, Adjuvanted 07/08/2022,08/20/2021,08/04/2020Influenza, Qchaemvufdq38/24/2017,06/29/2016, 06/25/2015,07/12/2014,08/07/2013Influenza, seasonal,quadrivalent, preservative free06/12/2015Moderna SARS-CoV-2 Aqlycgorkru92/09/2021,1Pneumococcal Conjugate PCV 131,07/05/2017Pneumococcal Polysaccharide RNX708810/21/2020 Family History * Patient is adopted RelationNameStatusCommentsFatherDeceasedMotherDeceased Social History Tobacco UseTypesPacks/DayYears UsedDateSmoking Tobacco: WwfrusTzhpjuqpfu1138 - 1999Smokeless Tobacco: Never Tobacco Cessation:Counseling Given: Not Answered Alcohol UseStandard Drinks/WeekCommentsYes0 (1 standard drink = 0.6 oz pure alcohol)OCCASIONALHumiliation, Afraid, Rape, and Kick questionnaireAnswerDate RecordedWithin the last year, have you been afraid of your partner or ex-partner?No11/27/2024Emotionally AbusedNot on file11/27/2024Physically Abused Not on file11/27/2024Sexually AbusedNot on file11/27/2024PHQ-2AnswerDate RecordedPatient Health Questionnaire-2 Oklhk930UT Safety & Environment AnswerDate RecordedFear of Current or Ex-PartnerNot on file11/03/2023Emotionally AbusedNot on file11/03/2023hysically AbusedNot on file11/03/2023Sexually Abused Not on file11/03/2023hysically or Sexually AbusedNot on file11/03/2023 CommentsUnknownSex and Gender InformationValueDate RecordedSex Assigned at Kypqrz2005/15/2025 10:28 AM EDTLegal XheJsbpkw19/29/2022 10:18 PM EDTGender XdzhgcspOfujge33/03/2025 10:28 AM EDTSexual OrientationHeterosexual or Straight 05/15/2025 10:28 AM EDT Last Filed Vital Signs Vital SignReadingTime TakenCommentsBlood Jhgboltd066/6507/10/2025 1:55 PM EDT Deitb911407/10/2025 1:55 PM PYNRgphnstftbw62.9 ??C (98.4 ??F)05/15/2025 10:32 AM EDTRespiratory Rate--Oxygen Cmmxotrswo54%07/10/2025 1:55 PM EDTInhaled Oxygen Concentration--Rxejuv487 kg (223 lb)07/10/2025 1:55 PM BTXDykuym206.9 cm (4' 11 )07/10/2025 1:55 PM EDTBody Mass Index45.041 1:55 PM EDT Plan of Treatment DateTypeDepartmentCare Team (Latest Contact Info)Kdsaxlzcasd65/04/2026 11:00 AM ESTFollow-Up [facility] [address] [place] [address] Ortega Hines MD [address] [facility] [place] [address] Health MaintenanceDue DateLast DoneCommentsMedicare Annual Wellness (AWV) 8Adult Mxkkubx5911/30/1969Zoster Vaccines (1 of 2)11/30/1997COVID-19 Vaccine ( season)503/05/2021, 11/18/2020, 10/20/2020, Additional history existsInfluenza Vaccine (#1)501/04/2025, 08/25/2023, 07/08/2022, Additional history existsFall Risk Dffcenqyr77/07/2025 Depression Izehszgom00/11/2024Pneumococcal Vaccine: 50+ YearsCompleted 08/20/2021, 08/04/2020, 07/05/20178848LxbkxnusvDiwtjmemucrp31/04/2025HIB Vaccines Aged OutNo longer eligible based on [...] to complete this topic Procedures Procedure NamePriorityDate/TimeAssociated DiagnosisCommentsCARDIAC DEVICE CHECK - IN CLINIC - PACEMAKER DUAL CHAMBER W/ KMTQSgkiijg10/07/2025 11:37 AM EST Encounter for implantable defibrillator reprogramming or check ECG 12-YBOFEfkkusa35/29/2025 5:14 PM EDT Paroxysmal A-fib (CMS/HCC) ECG 12-TWJAFqqerwr67/29/2025 2:27 PM EDT Paroxysmal A-fib (CMS/HCC) ECG 12 LEAD UNIT NUSJTIWAMWichamb10/29/2025 2:17 PM EDT Paroxysmal A-fib (CMS/HCC) MISCELLANEOUS LAB KGLVGijgtib92/03/2025 1:44 PM EDTfrom Last 3 Months Results * CARDIAC DEVICE CHECK - IN CLINIC - PACEMAKER DUAL CHAMBER W/ PROG (07/19/2025 11:37 AM EST)Anatomical RegionLateralityModalityOtherSpecimen (Source) Anatomical Location / LateralityCollection Method / VolumeCollection Time Received Time Narrative 07/24/2025 3:34 PM EST Normal device function Authorizing ProviderResult TypeResult StatusDmitriy Mahan [facility] IMPLANTABLE CARDIAC DEVICE PROCEDURESFinal Result * ECG 12 lead (07/10/2025 5:14 PM EDT) Only the most recent of2 resultswithin the time period is included. Specimen (Source)Anatomical Location / LateralityCollection Method / Volume Collection TimeReceived Time Narrative Kellie Alva MD - 07/10/2025 5:14 PM EDT Atrial paced ventricular sensed rhythm, nonspecific T wave in V1-V3 Authorizing ProviderResult TypeResult Hosea SCHMITZ ORDERABLESFinal Result * ECG 12 lead unit performed (07/10/2025 2:17 PM EDT)Specimen (Source)Anatomical Location / LateralityCollection Method / VolumeCollection TimeReceived Time Narrative Authorizing ProviderResult TypeResult Hosea SCHMITZ ORDERABLESFinal Result * - Miscellaneous Test (05/15/2025 1:44 PM EDT) Narrative Authorizing ProviderResult TypeResult StatusHistorical Provider ADRIANA BLOOD ORDERABLESFinal Result from Last 3 Months Insurance Care Teams Team MemberRelationshipSpecialtyStart DateEnd Date Renny Hansen MD [address] [facility] [address] [place] [address] PCP - GeneralInternal Eygrwynr85/6/24 Balta Cardenas DO [address] [place] [address] Referring Physician11/15/24
--- OUTSIDE RECORDS SUMMARY | 2025-08-02 12:57 | XMS_ITS | Encounter Summary ---
Author Organization [facility] Address [address] [facility] [place] [address] Care Team Providers Care Power Cutting Machine Operator Name Role Phone Renny Hansen MD Primary Care Provider [phone] Renny Hansen MD Unavailable [phone] Lisa Ramirez LPN Unavailable Encounter Details DateTypeDepartmentCare Team (Latest Contact Info)Sohguppfdhs15/17/2025bstract [facility] [address] [facility] [address] [place] [address] Renny Hansen MD [address] [facility] 110 [place], [place] [address] Social History Tobacco UseTypesPacks/DayYears UsedDateSmoking Tobacco: BrbwynZuuxflwekk969 Started: 1965Passive Smoke Exposure: PastAlcohol UseStandard Drinks/WeekComments Yes0 (1 standard drink = 0.6 oz pure alcohol)JIUXDFMHFTGW4193 Health Literacy AnswerDate RecordedHow often do you [...] relatives?Twice a week11/12/2024How often do you attend scientologist or adventist services?Patient iwooooez35/03/2025Do you belong to any clubs or organizations such as scientologist groups, unions, fraTigerspike or athletic groups, or school groups?No11/12/2024How often do you attend meetings of the clubs or organizations you belong to?Patient tbaomcqy13/03/2025re you , , , , never , or living with a partner?Living with partner 11/12/2024UDIT-CAnswerDate RecordedQ1: How often do you have a drink containing alcohol?Patient vwglbbae97/29/2025Q2: How many drinks containing alcohol do you have on a typical day when you are drinking?Patient rcjyatau82/29/2025Q3: How often do you have six or more drinks on one occasion?Patient omeabkgz24/29/2025 Overall Financial Resource Strain (CARDIA)AnswerDate RecordedHow hard is it for you to pay for the very basics like food, housing, medical care, and heating?Not hard at all11/12/2024PHQ-2AnswerDate RecordedPatient Health Questionnaire-2 Ocprh585Finsalt [facility] [place] of Occupational Health - Occupational Stress QuestionnaireAnswerDate RecordedDo you feel stress - tense, restless, nervous, or anxious, or unable to sleep at night because yourmind is troubled all the time - these days?To some hasruv7411/12/2024Exercise Vital SignAnswerDate Recorded On average, how many [...] steady place to sleep or slept in [facility] (including now)?Patient npaxjdd5608/30/2023Housing Stability Vital SignAnswerDate RecordedIn the last 12 months, was there a time when you were not able to pay the mortgage or rent on time?No11/12/2024In the past 12 months, how many times have you moved where you were living?t any time in the past 12 months, were you homeless or living in a custodial (including now)?No 11/12/2024CommentsUnknownSex and Gender InformationValueDate RecordedSex Assigned at BirthNot on fileLegal MsvPscwrb18/15/2023 6:35 PM EDTGender Identity Not on fileSexual OrientationNot on filedocumented as of this encounter Plan of Treatment DateTypeDepartmentCare Team (Latest Contact Info)Gnczxmaenej21/12/2026 11:00 AM ESTOffice Visit [facility] [place] [facility] [address] [facility] [place] [address] Renny Hansen MD [address] [facility] [address] [place] [address] documented as of this encounter Visit Diagnoses Not on filedocumented in this encounter Additional Health Concerns AssessmentNoted TimePHQ-9 Depression Total Score: 2:00 PM EST documented as of this encounter Care Teams Team MemberRelationshipSpecialtyStart DateEnd Renny Hansen MD [address] [facility] [address] [place] [address] PCP - GeneralInternal Medicine09/19/24 Renny Hansen MD [address] [facility] [address] [place] [address] PCP - Medical Telephone [place]09/12/2511 Lisa Ramirez LPN [address] [facility] [address] [place] [address] 12/05/24documented as of this encounter
--- OUTSIDE RECORDS SUMMARY | 2025-08-02 12:57 | XMS_ITS | Clinical Summary ---
Author Organization [facility] Address [address] [place] [address] Phone Care Team Providers Care Geotechnical Field Technician Name Role Phone Unavailable Primary Care Provider Unavailabl e Social History Tobacco UseTypesPacks/DayYears UsedDateSmoking Tobacco: Never Assessed CommentsUnknownSex and Gender InformationValueDate RecordedSex Assigned at Not on fileLegal EvfNrveky95/02/2023 4:35 AM EDTGender IdentityNot on fileSexual OrientationNot on file Plan of Treatment Not on file
--- OUTSIDE RECORDS SUMMARY | 2025-08-02 12:57 | XMS_ITS | Clinical Summary ---
Author Organization [facility] Address [address] [place] [address] Care Team Providers Care Powder Expert Name Role Phone Renny Hansen MD Primary Care Provider [phone] Renny Hansen MD Unavailable [phone] Lisa Ramirez LPN Unavailable Allergies Active AllergyReactionsCriticalityNoted GgxhWowcrqqzJzarrhdCxoiWnx38/05/2024 Lhixew8811/16/2023 Other Reaction(s): HEART ISSUES Wound Dressing VtqhaskdTgunZeu97/08/2024 Medications MedicationSigDispense QuantityRefillsLast FilledStart DateEnd DateStatus Multiple Vitamins-Minerals (CENTRUM SILVER 50+WOMEN PO) Take 1 tablet by mouth in the morning.Active flecainide (Tambocor) 100 MG tablet Take 100 mg by mouth every 12 (twelve) hours03/08/2024ctive baclofen (Lioresal) 10 MG tablet Take 10 mg by mouth in the morning and 10 mg in the evening and 10 mg before bedtime.06/21/2024ctive HYDROcodone-acetaminophen ([place]) 5-325 MG tablet Take 1 tablet by [...] by mouth at bedtime 30 tablet 110506Active penicillin v potassium (Veetid) 500 MG tablet Take 500 mg by mouth in the morning and 500 mg at noon and 500 mg in the evening and 500 mg before bedtime.07/05/2025Discontinued azithromycin (Zithromax) 250 MG tablet Indications:BronchitisTake 2 tablets (500 mg) by mouth Daily for 1 day, THEN 1 tablet (250 mg) Daily for 4 days. 6 tablet Discontinued promethazine-codeine (Phenergan W/Codeine) 6.25-10 MG/5ML syrup Indications:BronchitisTake 5 mL by mouth every 6 (six) hours if needed for cough for up to 10 days 240 mL Discontinued ciprofloxacin (Cipro) 250 MG tablet Indications:Acute cystitis with hematuriaTake 1 tablet (250 mg) by mouth in the morning and 1 tablet (250 mg) before bedtime. Do all this for 5 days. 10 tablet ExpiredHospital, Clinic, or Other Facility Administered MedicationOrdered DoseRouteFrequencyStart DateEnd DateStatus triamcinolone acetonide (Kenalog-40) injection 40 mg Indications:Zemnzuefwa08 vvOFCvcq34/24/2025Active Active Problems ProblemNoted DateDiagnosed Date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02/22/2025HF (congestive heart failure)09/24/2024History of ulcer xsaytur1409/24/20246233Mgvaanewiukmne49/13/2025Positive fecal occult blood test 09/24/2024Gastroesophageal reflux disease without vimxlyntqvi09/05/2024 Obstructive sleep apnea /06/2024ulmonary bzamuryeuwea71/06/2024 Degenerative disc disease, iectvgza70/24/2024bnormal CT scan, neck07/05/2024 Enlarged lymph nodes in hbcehv73Sigmoid jdwzbcrpftepkx21/24/2024nemia due to multiple djjyewxcgv95/24/2024Irritable bowel czyhylaq99/24/2024Iron deficiency anemia due to chronic blood loss03/12/2024 [...] omeprazole. Acute on chronic diastolic (congestive) heart pbfgwvx2702/27/2024 Assessment & Plan (06/02/2024 10:19 AM EDT): [...] assess cardiac structure. Cardiac pacemaker in situ4Diastolic neldewkcpxw63/09/2024Arthritis of right acromioclavicular joint11/07/2023losed fracture of fifth metatarsal bone 4Contusion of left rsldtudv17/26/2024Impingement syndrome of right sqimivxp78/26/2024Sick sinus syndrome (I49.5)11/07/2023 Assessment & Plan (11/07/2023 3:19 PM EST): S/p PPM Hiatal kvjgcv3910/17/2023Shoulder pain10/17/2023 Assessment & Plan (04/11/2024 2:10 PM [...] place. MRI ordered, awaiting approval. Will order [place] as needed as it helped with pain. [...] pain of left knee09/06/2023rthritis of left shoulder evnxgs2709/06/2023 Peptic ulcer ahembkv67/26/2023Chronic bilateral low back pain with sciatica 09/06/2023 [...] for her symptoms. Medicare annual wellness visit, kpvmlstbmi70/26/2023 Assessment & Plan (09/06/2023 2:49 PM EST): Patient here for medicare wellness. Doing well overall other than chronic back pain. Upto date on Colon Cancer screening, breast cancer screening. Reviewed medications, counseled on lifestyle measures, importance of compliance. Cervical fsuyosdkzqmly64/20/2023 Overview (07/24/2024): C6 Roztfrosgqzf87/20/2023Osteoarthritis of both knees03/01/2023Osteoarthritis of lumbar spine03/01/2023Steatosis of liver03/01/2023 Overview (09/06/2023): non alcoholic non alcoholic Spinal mmzgygcs24/20/2023astric ulcer03/01/2023Venous iiuthrnegpcdw47/20/2023 Vitamin D rrponwckzk37/20/2023ersistent atrial qsckalywvhnk71/09/2023 Overview (09/06/2023): Last Assessment & Plan: -device check in may 2022 <1% AF, had 1 mode switch which lasted 6 seconds -will have her get device check to assess AF burden -KYG8TV7-SBVo 3 -Continue Xarelto 20 mg daily, continue propafenone to 25 mg 3 times a day Assessment & Plan (12/29/2023 2:36 PM EDT): S/P PPM. Follows [facility] cardiology. On Xarelto for stroke px. Also uses Flecainide, Verapamil. Assessment & Plan (11/07/2023 3:16 PM EST): S/P PPM. Follows [facility] cardiology. On Xarelto for stroke px. Also uses Flecainide, Verapamil. Assessment & Plan (09/06/2023 2:46 PM EST): S/P PPM. Follows [facility] cardiology. On Xarelto for stroke px. Sinus node jlqdabwnknb12/26/2021 Overview (09/06/2023): Last Assessment & Plan: - S/p PPM [place] [employer] -We will have her scheduled for device check Eezvjbr1712/29/2012 Overview (09/06/2023): Last Assessment & Plan: Obesity [...] and educated on its side effects. Essential yvgkunhuaera05/03/2012 Overview (09/06/2023): Last Assessment & Plan: Hypertension [...] or persistently elevated BP. Chronic obstructive lung kgtlapw1701/12/2012 Assessment & Plan (12/29/2023 2:36 PM EDT): Does not take anything for it. Fairly well controlled. Assessment & Plan (11/07/2023 3:17 PM EST): Does not take anything for it. Fairly well controlled. Had recent exacerbation with URTI - symptomsimproved now. Coronary nuzxwkexlvxvbke38/02/2012 Overview (09/06/2023): Last Assessment & Plan: Coronary artery disease is stable -no CP or LEA -last cath 2010, mild disease no PCI / stent -continue medications Edema01/12/2012Paroxysmal supraventricular axlowrhsumx54/02/2012 Overview (09/06/2023): SHORT IMPROVED. Disorder of bursae of shoulder ibluas2601/12/2012 Resolved Problems ProblemNoted DateDiagnosed DateResolved DateCOPD arpmsqvxzxtn56/05/2024 07/24/2024 Assessment & Plan (10/17/2023 10:59 AM [...] to make sure no Pneumonia Encounters DateTypeDepartmentCare HymyPjzhzpgitkw17/21/2025bstract [facility] [address] [place] [address] Renny Hansen MD 07/31/2025bstract [facility] [address] [place] [address] Renny Hansen MD 07/30/2025bstract [facility] [address] [place] [address] Renny Hansen MD 07/29/2025bstract [facility] [address] [place] [address] Renny Hansen MD 07/29/2025bstract [facility] [address] [place] [address] Renny Hansen MD 07/25/2025bstract [facility] [address] [place] [address] Renny Hansen MD 07/25/2025bstract [facility] [address] [place] [address] Renny Hansen MD 07/24/2025bstract [facility] [address] [place] [address] Renny Hansen MD 07/18/2025 11:30 AM ESTOffice Visit [facility] [address] [place] [address] Renny Hansen MD Asymptomatic microscopic hematuria (Primary Dx); Acute cystitis with qzhexlycu46/06/2025amboo flowsheet [facility] [address] [place] [address] Renny Hansen MD 07/18/20258230Zrharf62/29/2025Clinisync Result Encounter [facility] External Department Unsolicited Provider, Generic External Data 07/05/2025 11:45 AM EDTOffice Visit [facility] [address] [place] [address] Renny Hansen MD Nrgxylfvmy94/24/2025amboo flowsheet [facility] [address] [place] [address] Renny Hansen MD 07/05/20253588Rpghlv49/25/2025bstract [facility] [address] [place] [address] Renny Hansen MD 06/06/2025bstract [facility] [address] [place] [address] Renny Hansen MD 06/06/2025bstract [facility] [address] [place] [address] Renny Hansen MD 06/03/2025Patient Outreach [facility] [address] [place] [address] Lisa Ramirez LPN 05/16/2025 11:00 AM EDTOffice Visit [facility] [address] [place] [address] Renny Hansen MD RLS (restless legs syndrome)05/16/2025amboo flowsheet [facility] [address] [place] [address] Renny Hansen MD 05/16/20259666Ryexzg06/27/2025bstract [facility] [address] [place] [address] Renny Hansen MD 05/07/2025bstract [facility] [address] [place] [address] Renny Hansen MD 05/06/2025bstract [facility] [address] [facility] [address] [place] [address] Renny Hansen MD from Last 3 Months Immunizations ImmunizationAdministration DatesNext DueInfluenza, High Dose Seasonal, Preservative Free08/06/2019Influenza, High-dose Seasonal, Quadrivalent, Preservative Free09/19/2024Influenza, Seasonal, Quadrivalent, Adjuvanted 08/25/2023,07/08/2022,08/20/2021,08/04/2020Influenza, Qqzopwmqirt52/14/2023, 07/08/2022,08/20/2021,08/04/2020,08/06/2019,07/05/2017,06/29/2016,06/25/2015, 06/12/2015,07/12/2014,08/07/2013Influenza, injectable, pwsxihkwcjcl71/14/2015, 07/12/2014Influenza, seasonal, ssfevkmett77/26/2013Influenza, seasonal, intradermal, preservative free06/12/2015Influenza, trivalent, adjuvanted 07/05/2017,06/29/2016Pneumococcal Conjugate PCV 13110/04/2019,07/05/2017 Pneumococcal Polysaccharide SDXK2686/09/2021RSV, recombinant, protein subunit RSVpreF, adjuvant reconstitu, 120mcg/0.5mL, PF (Arexvy)08/25/2023 Family History * Patient is adopted RelationNameStatusCommentsFatherDeceasedMotherDeceased Social History Tobacco UseTypesPacks/DayYears UsedDateSmoking Tobacco: SehtxwNwrggglqqf874 Started: 1967Passive Smoke Exposure: Past Tobacco Cessation:Counseling Given: Yes Alcohol UseStandard Drinks/WeekCommentsYes0 (1 standard drink = 0.6 oz pure alcohol)SFEJSTCOPHQP9452 Health LiteracyAnswerDate RecordedHow often do you need [...] relatives?Twice a week11/12/2024How often do you attend christianity or yazidi services?Patient /03/2025Do you belong to any clubs or organizations such as christianity groups, unions, fraternal or athletic anastacio ups, or school groups?No11/12/2024How often do you attend meetings of the clubs or organizations you belong to?Patient ftdbcfen09/03/2025re you , , , , never , or living with a partner?Living with nxunsru1911/12/2024UDIT-CAnswerDate RecordedQ1: How often do you have a drink containing alcohol?Patient wcnizelf31/29/2025Q2: How many drinks containing alcohol do you have on a typical day when you are drinking?Patient fofpdugn90/29/2025Q3: How often do you have six or more drinks on one occasion? Patient ahbxodgp07/29/2025Overall Financial Resource Strain (CARDIA)AnswerDate RecordedHow hard is it for you to pay for the very basics like food, housing, medical care, and heating?Not hard at all11/12/2024PHQ-2AnswerDate Recorded Patient Health Questionnaire-2 Ckhhf951Finsteward health care system [place] of Occupational Health - Occupational Stress QuestionnaireAnswerDate RecordedDo you feel stress - tense, restless, nervous, or anxious, or unable to sleep at night because your mind is troubled all the time - these days?To some peupub5011/12/2024Exercise Vital SignAnswerDate RecordedOn average, how many days [...] steady place to sleep [facility] ([facility])?Patient ocakifj1908/30/2023Housing Stability Vital SignAnswerDate RecordedIn the last 12 months, was there a time when you were not able to pay the mortgage or rent on time?No11/12/2024In the past 12 months, how many times have you moved where you were living?t any time in the past 12 months, were you homeless or living in a correction (including now)?No11/12/2024CommentsUnknownSex and Gender InformationValueDate RecordedSex Assigned at BirthNot on fileLegal RvlJfjtkd56/15/2023 6:35 PM EDT Gender IdentityNot on fileSexual OrientationNot on file Last Filed Vital Signs Vital SignReadingTime TakenCommentsBlood Topwkeew080/7207/18/2025 11:30 AM EST Dadhg948507/18/2025 11:30 AM GQYXwhugkfipfk67.9 ??C (98.4 ??F)08/02/2024 10:51 AM ESTRespiratory Rfrl706404/24/2025 9:41 AM EDTOxygen Crgrnhrorp63%07/18/2025 11:30 AM ESTInhaled Oxygen Concentration--Lvwyys747 kg (222 lb)07/18/2025 11:30 AM EST Dckxpo939.8 cm (4' 9 )07/18/2025 11:30 AM ESTBody Mass Index48.04109/17/2024 11:30 AM EST Plan of Treatment DateTypeDepartmentCare Team (Latest Contact Info)Oucwplnvcad08/12/2026 11:00 AM ESTOffice Visit [facility] [address] [facility] [address] [place] [address] Renny Hansen MD [address] [facility] [address] [place], [place] [address] Health MaintenanceDue DateLast DoneCommentsCOVID-19 Vaccine ( season) 503/05/2021, 11/18/2020, 10/20/2020, Additional history existsInfluenza Vaccine (#1)501/04/2025, 08/25/2023, 08/25/2023, Additional history existsMedicare Annual Wellness (AWV)6010/17/2024, 09/06/2023, 09/06/2023 Pneumococcal Vaccine: 65+ SipcrHndomzgog11/09/2021, 08/04/2020, 07/05/2017 AqkoddyjaltArfcsyenxghj34/25/2025, 03/07/2024, 09/12/2017Colorectal Cancer ScreeningDiscontinuedCT ColonographyDiscontinuedFIT-DNADiscontinuedFIT DiscontinuedFOBTDiscontinuedSigmoidoscopyDiscontinued Procedures Procedure NamePriorityDate/TimeAssociated DiagnosisCommentsPOCT URINALYSIS WFNLMLPSQdmlmye19/06/2025 12:47 PM EST Acute cystitis with hematuria ALL LIPID PROFILE (FASTING)Zvqodjl5907/10/2025 10:58 AM EDT KDMGDYKWGMOTvapydc16/25/2025 from Last 3 Months Results * POCT Urinalysis dipstick (07/18/2025 12:47 PM EST)ComponentValueRef RangeTest MethodAnalysis TimePerformed AtPathologist SignatureGlucose, UANegative Negative - 1999(110) ++++ mg/dLBilirubin, UATraceNegative - 4(70) +++ mg/dL Ketones, UANegativeNegative - 160(16) ++++ mg/dLSpec Grav, UA1.0301 - 1.03 Blood, UAPositiveNegative - 50 Shadi/mcLComment:moderatepH, UA6.05 - 9Protein, UA3+Negative - 2000(20) ++++ mg/dLUrobilinogen, UA0.20.2 - 12 mg/dLLeukocytes, UATraceNegative - 500+++ Rosette/mcLNitrite, UANegativeNegative - PositiveSpecimen (Source)Anatomical Location / LateralityCollection Method / VolumeCollection TimeReceived ZludJeimq56/06/2025 12:47 PM EST Narrative Authorizing ProviderResult TypeResult StatusDaniel B Hansen [facility]ENTEROINT OF CARE TEST ENTER/EDIT ORDERABLESFinal Result * ALL LIPID PROFILE (FASTING) (07/10/2025 10:58 AM EDT)ComponentValueRef Range Test MethodAnalysis TimePerformed AtPathologist MmqqubnybMAGFYDPWFZFOF43<=150 mg/rSSBJHLDLGTZVLRO081<=200 mg/dLTBHHDL WTTAQECPTQA8401 - 60 mg/dLTBHComment: > or =60 mg/dl - LOW CARDIOVASCULAR RISK <40 mg/dl - HIGH CARDIOVASCULAR RISK LDL CHOLESTEROL JKSMQXQPCR55.8mg/dLTBHComment: <100 mg/dl OPTIMAL 100-129 mg/dl NEAR OR ABOVE OPTIMAL 130-159 mg/dl BORDERLINE HIGH 160-189 mg/dl HIGH >190 mg/dl VERY HIGH VLDL SJOQBZGBPII45.2mg/dLTBHCHOL HDL RATIO2.4TBHComment: 3.3 - 4.4 ?? LOW RISK 4.4 - 7.1 ?? AVERAGE RISK 7.1 - 11.0 ??MODERATE RISK >11.0 HIGH RISK Specimen (Source)Anatomical Location / LateralityCollection Method / Volume Collection TimeReceived Time07/10/2025 10:58 AM EDT1 11:00 AM EDT Narrative CLIN[facility]YNC - 07/10/2025 12:35 PM EDT Authorizing ProviderResult TypeResult StatusGeneric External Data Provider CLINISYNCFinal ResultPerforming OrganizationAddressCity/State/ZIP CodePhone Number CLINISYNC [facility] * [facility] Colonoscopy (06/06/2025)Anatomical RegionLateralityModalityOtherSpecimen (Source)Anatomical Location / LateralityCollection Method / VolumeCollection TimeReceived Time06/06/2025 Impressions 06/07/2025 7:56 AM EDT Diverticulosis with diverticular strictures. See scanned document for full report. No further screenings recommended. Narrative Authorizing ProviderResult TypeResult StatusEleanor Evans Hemzeinab PAHEALTH MAINTENANCE Final Result from Last 3 Months Insurance Care Teams Team MemberRelationshipSpecialtyStart DateEnd Date Renny Hansen MD [address] [facility] [address] [place] [address] PCP - GeneralInternal Medicine09/19/24 Renny Hansen MD [address] [facility] [address] [place] [address] PCP - Medical [facility]09/12/2511 Lisa Ramirez LPN [address] [address] 12/05/24
--- OUTSIDE RECORDS SUMMARY | 2025-08-02 12:57 | XMS_ITS | Encounter Summary ---
Author Organization [facility] Address [address] [facility] [place] [address] Care Team Providers Care County Assessor Name Role Phone Renny Hansen MD Primary Care Provider [phone] Renny Hansen MD Unavailable [phone] Lisa Ramirez LPN Unavailable Encounter Details DateTypeDepartmentCare Team (Latest Contact Info)Qtqnhytpdfz77/19/2025bstract [facility] [address] [facility] [address] [place] [address] Renny Hansen MD [address] [facility] [address] [place], [place] [address] Social History Tobacco UseTypesPacks/DayYears UsedDateSmoking Tobacco: ShwlrzMqcfjazitg119 Started: 1965Passive Smoke Exposure: PastAlcohol UseStandard Drinks/WeekComments Yes0 (1 standard drink = 0.6 oz pure alcohol)FCHWUGSQXJTJ6540 Health Literacy AnswerDate RecordedHow often do you [...] relatives?Twice a week11/12/2024How often do you attend lutheran or yarsani services?Patient /03/2025Do you belong to any clubs or organizations such as lutheran groups, unions, fraWP Engine or athletic groups, or school groups?No11/12/2024How often do you attend meetings of the clubs or organizations you belong to?Patient qwbooozw27/03/2025re you , , , , never , or living with a partner?Living with partner 11/12/2024UDIT-CAnswerDate RecordedQ1: How often do you have a drink containing alcohol?Patient /29/2025Q2: How many drinks containing alcohol do you have on a typical day when you are drinking?Patient bvcpynmv43/29/2025Q3: How often do you have six or more drinks on one occasion?Patient mtvbwyau87/29/2025 Overall Financial Resource Strain (CARDIA)AnswerDate RecordedHow hard is it for you to pay for the very basics like food, housing, medical care, and heating?Not hard at all11/12/2024PHQ-2AnswerDate RecordedPatient Health Questionnaire-2 Upesp813F[facility]anpet[facility] [place] of Occupational Health - Occupational Stress QuestionnaireAnswerDate RecordedDo you feel stress - tense, restless, nervous, or anxious, or unable to sleep at night because yourmind is troubled all the time - these days?To some qxxchw2211/12/2024Exercise Vital SignAnswerDate Recorded On average, how many [...] steady place to sleep or slept in [facility] (including now)?Patient bfmynig5008/30/2023Housing Stability Vital SignAnswerDate RecordedIn the last 12 months, was there a time when you were not able to pay the mortgage or rent on time?No11/12/2024In the past 12 months, how many times have you moved where you were living?t any time in the past 12 months, were you homeless or living in a detention (including now)?No 11/12/2024CommentsUnknownSex and Gender InformationValueDate RecordedSex Assigned at BirthNot on fileLegal ObrXrsqug80/15/2023 6:35 PM EDTGender Identity Not on fileSexual OrientationNot on filedocumented as of this encounter Plan of Treatment DateTypeDepartmentCare Team (Latest Contact Info)Ervwwakplvf61/12/2026 11:00 AM ESTOffice Visit [facility] [address] [facility] [address] [place] [address] Renny Hansen MD [address] [facility] [address] [place] [address] documented as of this encounter Visit Diagnoses Not on filedocumented in this encounter Additional Health Concerns AssessmentNoted TimePHQ-9 Depression Total Score: 2:00 PM EST documented as of this encounter Care Teams Team MemberRelationshipSpecialtyStart DateEnd Renny Hansen MD [address] [facility] [address] [place] [address] PCP - GeneralInternal Medicine09/19/24 Renny Hansen MD [address] [facility] [address] [place] [address] PCP - Medical [place]09/12/2511 Lisa Ramirez LPN [address] [facility] [address] [place] [address] 12/05/24documented as of this encounter
--- OUTSIDE RECORDS SUMMARY | 2025-08-02 12:57 | XMS_ITS | Clinical Summary ---
Author Organization [facility] Address [address] [place] [address] Care Team Providers Care Antique Furniture Restorer Name Role Phone Paulette Johnson MD Primary Care Provider [phone] Scott Cruz MD Unavailable [phone] Allergies Active AllergyReactionsCriticalityNoted AfmiWtjxtxcaHaoqvahgSdgxofwf94/08/2024 Medications MedicationSigDispense QuantityRefillsLast FilledStart DateEnd DateStatus baclofen [...] UseTypesPacks/DayYears UsedDateSmoking Tobacco: NeverSmokeless Tobacco: NeverAlcohol UseStandard Drinks/UoplHmnzhzfuNyi26 (1 standard drink = 0.6 oz pure alcohol)CommentsUnknownSex and Gender InformationValueDate Recorded Sex Assigned at BirthNot on fileLegal IvfOzfrcz25/02/2012 8:02 AM ESTGender IdentityNot on fileSexual OrientationNot on file Last Filed Vital Signs Vital SignReadingTime TakenCommentsBlood Pressure--Pulse--Temperature-- Respiratory Rate--Oxygen Saturation--Inhaled Oxygen Concentration--Kizjeh96.8 kg (220 lb)05/22/2024 1:17 PM ZSSBsnjyr295.9 cm (4' 11 )05/22/2024 1:17 PM EDTBody Mass Index44.4309 1:17 PM EDT Plan of Treatment Health MaintenanceDue DateLast DoneCommentsAnxiety Dwxkgwlij89/21/1966Depression Idujrfgiy13/21/1966Hepatitis C Vtwtivdee56/21/1966DTaP,Tdap,Td Vaccine (1 - Tdap)11/30/1966Diabetes Inmsykonq04/21/1993Shingrix Vaccine (1 of 2)11/30/1997 Bone Density Xprabpuxd68/21/2013dvance Directive Dbgtazaiii33/01/2025Medicare Advantage Annual Wellness Visit09/12/2024ovid-19 Vaccine ( season) 503/05/2021, 10/20/2020Influenza Vaccine (#1)/, 07/08/2022, 08/20/2021, Additional history existsPneumococcal Vaccine: 50+ Ejmsiurwh60/09/2021, 08/04/2020, 07/05/2017RSV TjgwjmxPxwlmjjdt59/14/2023 Insurance Care Teams Team MemberRelationshipSpecialtyStart DateEnd Paulette Johnson MD [address] [place] [address] PCP - General01/05/06 Scott Cruz MD [address] [address] ReferringInfectious Diseases05/07/24
--- OUTSIDE RECORDS SUMMARY | 2025-08-02 12:57 | XMS_ITS | Patient Health Record ---
Author Organization [facility] Address [address] [place] [address] Care Team Providers Care Suppository Molding Machine Operator Name Role Phone SHAIKH DOMINGUEZ Primary Care Provider James Garcia Unavailable [phone] Reason For Referral No Information Plan Of Treatment Pending Test Test Name Order Date MRI : Shoulder W/O Contrast Left - [id number] 03/05/2024 ORDERS 03/19/2024 Chest 2 views - [id number] 03/19/2024 Insurance Providers Payer Name Payer Address Payer Phone Subscriber Number Group Number Insured Name Patient Relationship to Insured Coverage Start Date Coverage End Date Medicare A[employer] [address] [facility] [place] [address] [id number] Cydney HERRMANN - patient is the insured
--- OUTSIDE RECORDS SUMMARY | 2025-08-02 12:57 | XMS_ITS | Encounter Summary ---
Author Organization [facility] Address [address] [place] [address] Care Team Providers Care Chemical Engineering Technician Name Role Phone Renny Hansen MD Primary Care Provider [phone] Renny Hansen MD Unavailable [phone] Lisa Ramirez LPN Unavailable Encounter Details DateTypeDepartmentCare Team (Latest Contact Info)Egnrdeakdar51/17/2025bstract [facility] [address] [facility] [address] [place] [id number] Renny Hansen MD [address] [facility] [address] [place], [place] [id number] Social History Tobacco UseTypesPacks/DayYears UsedDateSmoking Tobacco: CyvdaoQefvvddoym176 Started: 1965Passive Smoke Exposure: PastAlcohol UseStandard Drinks/WeekComments Yes0 (1 standard drink = 0.6 oz pure alcohol)[id number] Health Literacy AnswerDate RecordedHow often do you [...] relatives?Twice a week11/12/2024How often do you attend cheondoism or jehovah's witness services?Patient orrnvqau81/03/2025Do you belong to any clubs or organizations such as cheondoism groups, unions, fraTimetric or athletic groups, or school groups?No11/12/2024How often do you attend meetings of the clubs or organizations you belong to?Patient /03/2025re you , , , , never , or living with a partner?Living with partner 11/12/2024UDIT-CAnswerDate RecordedQ1: How often do you have a drink containing alcohol?Patient cggfikha29/29/2025Q2: How many drinks containing alcohol do you have on a typical day when you are drinking?Patient mufbftos61/29/2025Q3: How often do you have six or more drinks on one occasion?Patient juhtvvik29/29/2025 Overall Financial Resource Strain (CARDIA)AnswerDate RecordedHow hard is it for you to pay for the very basics like food, housing, medical care, and heating?Not hard at all11/12/2024PHQ-2AnswerDate RecordedPatient Health Questionnaire-2 Ahuqi118Finbrigham city community hospital [place] [facility] - Occupational Stress QuestionnaireAnswerDate RecordedDo you feel stress - tense, restless, nervous, or anxious, or unable to sleep at night because yourmind is troubled all the time - these days?To some azqauh3711/12/2024Exercise Vital SignAnswerDate Recorded On average, how many [...] in [facility] (including now)?Patient ekzbgnm0208/30/2023Housing Stability Vital SignAnswerDate RecordedIn the last 12 months, was there a time when you were not able to pay the mortgage or rent on time?No11/12/2024In the past 12 months, how many times have you moved where you were living?t any time in the past 12 months, were you homeless or living in a halfway (including now)?No 11/12/2024CommentsUnknownSex and Gender InformationValueDate RecordedSex Assigned at BirthNot on fileLegal JxfJzmken07/15/2023 6:35 PM EDTGender Identity Not on fileSexual OrientationNot on filedocumented as of this encounter Plan of Treatment DateTypeDepartmentCare Team (Latest Contact Info)Ggbunioevoj09/12/2026 11:00 AM ESTOffice Visit [facility] [address] [facility] [address] [place] [address] Renny Hansen MD [address] [facility] [address] [place] [address] documented as of this encounter Visit Diagnoses Not on filedocumented in this encounter Additional Health Concerns AssessmentNoted TimePHQ-9 Depression Total Score: 2:00 PM EST documented as of this encounter Care Teams Team MemberRelationshipSpecialtyStart DateEnd Renny Hansen MD [address] [facility] [address] [place] [address] PCP - GeneralInternal Medicine09/19/24 Renny Hansen MD [address] [facility] [address] [place] [address] PCP - Medical [place]09/12/2511 Lisa Ramirez LPN [address] [facility] [address] [place] [address] 12/05/24documented as of this encounter
--- OUTSIDE RECORDS SUMMARY | 2025-08-02 12:57 | XMS_ITS | Encounter Summary ---
Author Organization [facility] Address [address] [facility] [place] [address] Care Team Providers Care Sock Drier Name Role Phone Renny Hansen MD Primary Care Provider [phone] Renny Hansen MD Unavailable [phone] Lisa Ramirez LPN Unavailable Encounter Details DateTypeDepartmentCare Team (Latest Contact Info)Yzojriplukd44/13/2025bstract [facility] [address] [facility] [address] [place] [address] Renny Hansen MD [address] [facility] 110 [place], [place] [phone] Social History Tobacco UseTypesPacks/DayYears UsedDateSmoking Tobacco: JpjtupNvtdaqxthx313 Started: 1965Passive Smoke Exposure: PastAlcohol UseStandard Drinks/WeekComments Yes0 (1 standard drink = 0.6 oz pure alcohol)[id number] Health Literacy AnswerDate RecordedHow often do you [...] relatives?Twice a week11/12/2024How often do you attend roman catholic or buddhism services?Patient wirypykn46/03/2025Do you belong to any clubs or organizations such as roman catholic groups, unions, fraGreen Graphix or athletic groups, or school groups?No11/12/2024How often do you attend meetings of the clubs or organizations you belong to?Patient mwsypvce74/03/2025re you , , , , never , or living with a partner?Living with partner 11/12/2024UDIT-CAnswerDate RecordedQ1: How often do you have a drink containing alcohol?Patient kbnyjbcr51/29/2025Q2: How many drinks containing alcohol do you have on a typical day when you are drinking?Patient mhwxoupx05/29/2025Q3: How often do you have six or more drinks on one occasion?Patient cinakvij09/29/2025 Overall Financial Resource Strain (CARDIA)AnswerDate RecordedHow hard is it for you to pay for the very basics like food, housing, medical care, and heating?Not hard at all11/12/2024PHQ-2AnswerDate RecordedPatient Health Questionnaire-2 Pglzt375F[facility]astle[facility] - Occupational Stress QuestionnaireAnswerDate RecordedDo you feel stress - tense, restless, nervous, or anxious, or unable to sleep at night because yourmind is troubled all the time - these days?To some dhqxkx0511/12/2024Exercise Vital SignAnswerDate Recorded On average, how many [...] slept in [facility] (including now)?Patient aztrwro8708/30/2023Housing Stability Vital SignAnswerDate RecordedIn the last 12 [...] InformationValueDate RecordedSex Assigned at BirthNot on fileLegal DfeYweuxl26/15/2023 6:35 PM EDTGender Identity Not on fileSexual OrientationNot on filedocumented as of this encounter Plan of Treatment DateTypeDepartmentCare Team (Latest Contact Info)Ypbiyuaisbz73/12/2026 11:00 AM ESTOffice Visit [facility] [address] [facility] [address] [place] [address] Renny Hansen MD [address] [facility] [address] [place] [address] documented as of this encounter Visit Diagnoses Not on filedocumented in this encounter Additional Health Concerns AssessmentNoted TimePHQ-9 Depression Total Score: 2:00 PM EST documented as of this encounter Care Teams Team MemberRelationshipSpecialtyStart DateEnd Renny Hansen MD [address] [facility] 110 [place] [address] PCP - GeneralInternal Medicine09/19/24 Renny Hansen MD [address] [facility] [address] [place] [address] PCP - Medical [place]09/12/2511 Lisa Ramirez LPN [address] [facility] [address] [place] [address] 12/05/24documented as of this encounter
--- OUTSIDE RECORDS SUMMARY | 2025-08-02 12:57 | XMS_ITS | Clinical Summary ---
Author Organization [facility] Address [id number] [address] [place] [address] Care Team Providers Care Hospice Care Consultant Name Role Phone Unavailable Primary Care Provider Unavailabl e Social History Tobacco UseTypesPacks/DayYears UsedDateSmoking Tobacco: Never AssessedChildcare AnswerDate XqpcufwmYtbaltytdTvfhycu60/12/2019EmploymentAnswerDate Recorded AhopjcbxvsNnmhyqd43/12/2019Purpose - LifeAnswerDate RecordedPurpose and direction in rwslXfbnvmt06/11/2021CommentsUnknownSex and Gender InformationValueDate RecordedSex Assigned at BirthNot on fileLegal SexFemale 04/17/2015 11:41 AM EDTGender IdentityNot on fileSexual OrientationNot on file Plan of Treatment Not on file Medical Devices [place] [phone]
--- OUTSIDE RECORDS SUMMARY | 2025-08-02 13:02 | XMS_ITS | CCD ---
Author Organization [facility] Care Team Providers Care [employer] Workers Name Role Phone ZANE MCGUIRE Admitting Unavailable DMITRIY HENNESSY Referring Unavailable LUISANA JOHNSON Primary Care Unavailable ZANE MCGUIRE Attending Unavailable DMITRIY HENNESSY Surgeon Unavailable DC Procedure Practitioner Unavailab Hong Adler Unavailable JOHNSON ., DR LUISANA Jarquin Primary Care Unavailable JOHNSON ., DR LUISANA Jarquin Admitting Unavailable JOHNSON ., DR LUISANA Jarquin Attending Unavailable JOHNSON ., DR LUISANA Jarquin Consulting Unavailable JOHNSON ., DR LUISANA Jarquin Primary Care Unavailable FASILVANA, SAHU H Attending Unavailable FAWWAD, SAHU H Admitting Unavailable FAWWAD, SAHU H Admitting Unavailable FASILVANA, H Attending Unavailable JOHNSON ., DR LUISANA Jarquin Primary Care Unavailable JOHNSON ., DR LUISANA Jarquin Admitting Unavailable JOHNSON ., DR LUIASNA Jarquin Primary Care Unavailable JOHNSON ., DR LUISANA Jarquin Attending Unavailable JOHNSON ., DR LUISANA Jarquin Consulting Unavailable JOHNSON ., DR LUISANA Jarquin Admitting Unavailable JOHNSON ., DR LUISANA Jarquin Primary Care Unavailable JOHNSON ., DR LUISANA Jarquin Attending Unavailable JOHNSON ., DR LUISANA Jarquin Consulting Unavailable FAWWAAlysa, SAHU H Attending Unavailable [...] Unavailable THANG Clement Attending Provider MD Cira [facility] Primary Care Provider [phone] THANG Clement Attending Provider Cira CUBA [facility] Primary Care Provider MD Cira [facility] Primary Care Provider DO James Jones Attending Provider YOLY Cruz Attending Provider Luisana Johnson MD Primary Care Provider Pedro Pablo Cruz MD Unavailable LUISANA JOHNSON Primary Care Unavailable BOO BUCHANAN Attending Unavailable PEDRO PABLO CRUZ Referring Unavailable LUISANA JOHNSON Primary Care Unavailable BOO BUCHANAN Referring Unavailable Wesley Long MD Primary Care Provider Rajinder BOSWELL, Jazmín Unavailable Shaikh Denis MD Primary Care Provider [phone] Renny Hansen MD Primary Care Provider [phone] Pedro Pablo Cruz PA-C Attending Provider [phone] Renny Hansen II Primary Care Provider Pedro Pablo Cruz PA-C Attending Provider Renny Hansen II Referring Provider [phone] Katharina Toledo APRN Attending Provider Dmitriy Duque DO Attending Provider [phone] Sakina Cardenas DO Attending Provider [phone] Renny Hansen II Referring Provider Katharina Toledo APRN Attending Provider Renny Hansen MD Unavailable Gregory DRESS CAP MAKER, Cindi Unavailable [phone] Ramirez FURNITURE MECHANIC, Lisa Unavailable Unavailable Ramirez FURNITURE MECHANIC, Lisa Unavailable Renny Hansen II Primary Care Provider Regan BOSWELL-C, Emma Jarquin Attending Provider Renny Hansen II Referring Provider Katharina Toledo APRN Attending Provider Giedlobito CUBA, Andrius Vytautwilma Attending Unavailable Giedraitis , Andrius Vytautas Attending Unavailable Giedraitis , Andrius Vytautas Attending Unavailable Giedraitis , Andrius Vytautas Attending Unavailable Giedraitis , Andrius Vytautas Attending Unavailable Giedraitis , Andrius Vytautas Attending Unavailable Giedraitis , Andrius Vytautas Attending Unavailable Renny Hansen II Referring Provider Juan Monahan DO Attending Provider Dawson Gustafson MD Attending Provider Dawson Gustafson MD Other Provider Renny Hansen Primary Care Unavailable Sakina Cardenas Jr Attending Unavailable Sakina Cardenas Jr Admitting Unavailable Dmitriy Duque Attending Unavailable Dmitriy Duque Admitting Unavailable Renny Hansen Primary Care Unavailable Juan Monahan II Attending Unavaila ble Juan Monahan II Admitting Unavaila ble Renny Hansen Referring Unavailable Renny Hansen Primary Care Unavailable Renny Hansen Primary Care Unavailable Dawson Gustafson Attending Unavailable Dawson Gustafson Admitting Unavailable Pedro Pablo Cruz Admitting Unavailable Renny Hansen Primary Care Unavailable Pedro Pablo Cruz Attending Unavailable Cira CUBA, [facility] Primary Care Provider Rajinder BOSWELL, Jazmín Unavailable [phone] Gregory DRESS CAP MAKERCindi Unavailable KOLTON ALTMAN Attending Unavailable SKIE, DEREK Referring Unavailable MINOODMITRIY Referring Unavailable SKIE, DEREK Attending Unavailable FLORIAN, JAIR Attending Unavailable FLORIAN, JAIR Attending Unavailable MINOO, DMITRIY Referring Unavailable FLORIAN, JAIR Attending Unavailable SKIE, DEREK Attending Unavailable SKIE, DEREK Attending Unavailable SAKINA CARDENAS Referring Unavailable ANUPAMA, KOLTON Attending Unavailable ANUPAMA, KOLTON Attending Unavailable ANUPAMA, KOLTON Attending Unavailable MINOO, DMITRIY Referring Unavailable DMITRIY DUQUE Attending Unavailable RENNY HANSEN Attending Unavailable JR. ZAC, SAKINA Ovalle Attending Unavaila RENNY Barnhart Referring Unavailable JR. ZAC, SAKINA Ovalle Attending Unavaila ble RENNY HANSEN Attending Unavailable RENNY HANSEN Attending Unavailable ELEANOR DUMONT Attending Unavailable SHANNON RUSSO Attending Unavailable RENNY HANSEN B Attending Unavailable RENNY HANSEN B Attending Unavailable RENNY HANSEN Attending Unavailable ELEANOR DUMONT Attending Unavailable HANSEN, RENNY B Attending Unavailable HANSEN, RENNY B Attending Unavailable SALOME CID Attending Unavailable CHERYL RENNY B Referring Unavailable LUISANA LEAL Attending Unavailable Danna King Attending Unavailable CHERYL RENNY B Referring Unavailable Danna King Attending Unavailable Danna King Admitting Unavailable Allergies Allergy ClassificationReported Allergen(s)Allergy TypeDate of OnsetReaction(s) Facility (1 source)novacaine; Translations: [novacaine]Propensity to adverse reactions (disorder)43-67-0774Inw [facility] Repository (20 sources)NSAIDsPropensity to adverse rfutgslvy95-84-8030UTMVJCox North (8 sources)Adhesive agent; Translations: [adhesive]Allergy to substance 75-25-1020EuchernmRnztyngudCommunity Memorial Hospital (3 sources)NSAIDS (Non-Steroidal Anti-InflammaAllergy to mafersjxy46-28-3214 [facility]UESC[facility] (20 sources)DigoxinDrug Osjvohx38-21-1027NmbhQKKD Healthcare Work Phone: (20 sources)Wound Dressing AdhesiveDrug Ahbnhhp74-03-6505QjrdRWZR Healthcare (1 source)meloxicam; Translations: [Mobic][facility] (1 source)No Known Medication Allergies; Translations: [No Known Medication Allergies]Propensity to adverse reactions (disorder)[facility] Medications Current Medications MedicationDrug Class(es)DatesSig (Normalized)Sig (Original)acetaminophen 325 mg / HYDROcodone bitartrate 5 mg oral tablet (20 sources)Opioid AgonistStart: 74-81-3311cjvn 1 tablet by mouth in the morning, then take 1 tablet by mouth in the evening, then take 1 tablet by mouth at bedtimeHYDROcodone-acetaminophen ([place]) 5-325 MG tablet Take 1 tablet by mouth in the morning and 1 tablet in the evening and 1 tablet before bedtime. 06/21/2024 ActiveStart: 04-11-2024 End: 04-97-7048ncgx 1 tablet by mouth three times daily as needed for pain HYDROcodone-acetaminophen ([place]) 5-325 MG tablet Indications: Chronic left shoulder pain Take 1 tablet by mouth 3 (three) times a day as needed for severe pain 90 tablet 05/16/2024 06/15/2024 ActiveStart: 81-73-5526nsxq 1 tablet by mouth twice dailyacetaminophen-hydrocodone 325 mg-5 mg oral tablet 1 tab(s), Oral, BID, Refill(s) 0 Start Date: 03/01/24 Status: Orderedalbuterol 0.833 mg/ml / ipratropium bromide 0.167 mg/ml inhalation solution (20 sources)Anticholinergic, beta2-Adrenergic AgonistStart: 05-25-2024 End: 11-17-0408kvbrmshmjki-albuterol (Duo-Neb) 0.5-2.5 mg/3 mL nebulizer solution Indications: Chronic obstructivepulmonary disease, unspecified COPD type (HCC) Take 3 mL by nebulization in the morning and 3 mL atnoon and 3 mL in the evening and 3 mL before bedtime. 150 mL 2 04/18/2025 Activeamoxicillin 875 mg / clavulanate 125 mg oral tablet (4 sources)Penicillin-class AntibacterialStart: 08-16-2024 End: 54-51-1811bfra 1 tablet by mouth in the morningamoxicillin-clavulanate (Augmentin) 875-125 MG tablet Indications: Acute non-recurrent sinusitis, un specified location Take 1 tablet (875 mg) by mouth in the morning and 1 tablet (875 mg) before bedtime. Do all this for 7 days. 14 tablet 08/16/2024 08/23/2024 ActiveStart: 07-05-2024 End: 67-33-9085bftf 1 tablet by mouth in the morningamoxicillin-clavulanate (Augmentin) 875-125 MG tablet Indications: Acute non-recurrent sinusitis, un specified location Take 1 tablet (875 mg) by mouth in the morning and 1 tablet (875 mg) before bedtime. Do all this for 10 days. 20 tablet 07/05/2024 07/15/2024 Activeapixaban 5 mg oral tablet (20 sources)Factor Xa InhibitorStart: 05-05-2023 End: 74-55-4066qpdi 1 tablet by mouth in the morningapixaban (Eliquis) 5 MG tablet Indications: Persistent atrial fibrillation (HCC) Take 1 tablet (5 mg) by mouth in the morning and 1 tablet (5 mg) before bedtime. 180 tablet 1 02/08/2025 08/07/2025 Activeazithromycin 250 mg oral tablet (5 sources)Macrolide AntimicrobialStart: 07-05-2025 End: 51-76-9440yubk 2 tablets by mouth once daily, then take 1 tablet by mouth once dailyazithromycin (Zithromax) 250 MG tablet Indications: Bronchitis Take 2 tablets (500 mg) by mouth Daily for 1 day, THEN 1 tablet (250 mg) Daily for 4 days. 6 tablet 07/05/2025 07/18/2025 Discontinuedbaclofen 10 mg oral tablet (20 sources)gamma-Aminobutyric Acid-ergic AgonistStart: 47-59-6061jglo 1 tablet by mouth in the morning, then take 1 tablet by mouth in the evening, then take 1 tablet by mouth at bedtimebaclofen (Lioresal) 10 MG tablet Take 10 mg by mouth in the morning and 10 mg in the evening and 10mg before bedtime. 06/21/2024 ActiveStart: 86-63-9351qibm 1 tablet by mouth three times dailybaclofen 10 mg Tab 10 mg = 1 tab(s), Oral, TID, Refills(s) 0 Start Date: 03/01/24 Status: Xmgghsu060 actuat budesonide 0.16 mg/actuat / formoterol fumarate 0.0045 mg/actuat metered dose inhaler (2 sources)Corticosteroid, beta2-Adrenergic Agonisttake 2 puff(s) by inhalation twice dailySymbicort 160-4.5 MCG/ACT 2 puffs Inhalation Twice a day Active cefdinir 300 mg oral capsule (6 sources)Cephalosporin AntibacterialStart: 10-17-2024 End: 29-87-2081ehpi 1 capsule by mouth in the morningcefdinir (Omnicef) 300 MG capsule Indications: Acute non-recurrent sinusitis, unspecified location Take 1 capsule (300 mg) by mouth in the morning and 1 capsule (300 mg) before bedtime. Do all this for 7 days. 14 capsule 10/17/2024 10/24/2024 ActiveCentrum Silver (2 sources)Centrum Silver Orally *please review for potential _update for e- prescription and drug interaction check* ActiveCentrum Women 50 Plus Multigummies oral tablet, chewable (1 source)Start: 89-60-4799Gctybky Women 50 Plus Multigummies oral tablet, chewable Refill(s) 0 Start Date: 01/11/23 Status: Orderedcholecalciferol 0.125 mg oral tablet (20 sources)Vitamin DStart: 60-98-6103brgd 1 tablet by mouth once daily cholecalciferol (Natural Vitamin D-3) 5,000 Units tablet Indications: Vitamin D deficiency Take 1 tablet (5,000 Units) by mouth Daily 90 tablet 1 08/24/2024 ActiveStart: 61-30-7226nguz 1 tablet by mouth once daily in the morning Cholecalciferol, Vitamin D3, 125 mcg (5,000 unit) cap Take 1 tablet by mouth every morning. Activeciprofloxacin 250 mg oral tablet (2 sources)Quinolone AntimicrobialStart: 07-18-2025 End: 74-20-5055szau 1 tablet by mouth in the morningciprofloxacin (Cipro) 250 MG tablet Indications: Acute cystitis with hematuria Take 1 tablet (250 mg) by mouth in the morning and 1 tablet (250 mg) before bedtime. Do all this for 5 days. 10 tablet 07/18/2025 07/23/2025 Activecodeine phosphate 2 mg/ml / promethazine hydrochloride 1.25 mg/ml oral solution (5 sources)Opioid Agonist, PhenothiazineStart: 07-05-2025 End: 67-40-1340wmhgahvhvmsp-codeine (Phenergan W/Codeine) 6.25-10 MG/5ML syrup Indications: Bronchitis Take 5 mL by mouth every 6 (six) hours if needed for cough for up to 10 days 240 mL 07/05/2025 07/18/2025 Discontinuedflecainide acetate 100 mg oral tablet (20 sources)AntiarrhythmicStart: 36-62-9056nxxt 1 tablet by mouth every twelve hoursflecainide (Tambocor) 100 MG tablet Take 100 mg by mouth every 12 (twelve) hours 03/08/2024 ActiveStart: 69-42-1137ycuy 1 tablet by mouth twice dailyStart: 17-05-2970ciec 1 tablet by mouth once dailyflecainide (Tambocor) 50 MG tablet Take 50 mg by mouth 1 (one) time each day 0 Activefluticasone propionate 0.05 mg/actuat metered dose nasal spray (7 sources)CorticosteroidStart: 07-24-2024 End: 23-97-7553tkly 1-2 spray(s) nasal route once dailyfluticasone (Flonase) 50 MCG/ACT nasal spray Indications: Post-nasal drip Administer 1-2 sprays into each nostril Daily for 14 days Shake gently. Before first use, prime pump. After use, clean tip and replace cap. 16 g 07/24/2024 08/02/2024 Discontinuedfurosemide 40 mg oral tablet (20 sources)Loop DiureticStart: 74-66-7544llab 1 tablet by mouth once daily Start: 03-21-2024 End: 36-07-5344note 1 tablet by mouth once dailyfurosemide (Lasix) 40 MG tablet Indications: Acute on chronic diastolic (congestive) heart failure (CMS/HCC) TAKE 1 TABLET BY MOUTH EVERY DAY 90 tablet 06/18/2024 10/04/2024 Discontinued (Therapy completed)Start: 10-89-6481rown 1 tablet by mouth once dailyLasix 40 mg Tab 40 mg = 1 tab(s), Oral, Daily, Refills(s) 0 Start Date: 03/01/24 Status: Orderedtake 1 tablet by mouth every twenty-four hoursFurosemide 20 MG 1 tablet Orally Once a day Activegabapentin 300 mg oral capsule (7 sources)Anti-epileptic AgentStart: 09-06-2023 End: 94-96-2932usqx 1 capsule by mouth at bedtimegabapentin (Neurontin) 300 MG capsule Indications: Chronic bilateral low back pain with bilateral sciatica Take 1 capsule (300 mg) by mouth at bedtime 30 capsule 2 09/06/2023 12/05/2023 ActivehydroCHLOROthiazide 25 mg oral tablet (2 sources)Thiazide Diuretictake 1 tablet by mouth every twenty-four hours hydroCHLOROthiazide 25 MG 1 tablet Orally Once a day Activehydrocortisone valerate 2 mg/ml topical cream (20 sources)CorticosteroidStart: 10-17-2024 End: 78-44-3517pafwdurhtbobsz ([place]) 0.2 % cream Indications: Phlebitis of left upper extremity Apply topically 2 (two) times a day 45 g 1 10/17/2024 04/18/2025 Discontinued (Therapy completed)Multiple Vitamins-Minerals (CENTRUM SILVER 50+WOMEN PO) (20 sources)take 1 tablet by mouth in the morningMultiple Vitamins-Minerals (CENTRUM SILVER 50+WOMEN PO) Take 1 tablet by mouth in the morning. Activetake 1 tablet by mouth in the morningMultiple Vitamins-Minerals (CENTRUM SILVER 50+WOMEN PO) Take 1 tablet by mouth in the morning. 0 ActiveMultivitamin tablet (6 sources)Start: 46-02-5962szye 1 tablet by mouth once dailyStart: 09-25-2024 take 1 tablet by mouth once dailyMultivitamin tablet Active 1 TAB PO Daily September 25, 2024 12:00amnitrofurantoin, macrocrystals 25 mg / nitrofurantoin, monohydrate 75 mg oral capsule (6 sources)Nitrofuran AntibacterialStart: 04-24-2025 End: 37-80-0138nqez 1 capsule by mouth in the morningnitrofurantoin, macrocrystal-monohydrate, (Macrobid) 100 MG capsule Indications: Hematuria, unspecified type Take 1 capsule (100 mg) by mouth in the morning and 1 capsule (100 mg) before bedtime. Do all this for 7 days. 14 capsule 04/24/2025 05/01/2025 ActiveStart: 09-19-2024 End: 48-83-5393qauc 1 capsule by mouth in the morningnitrofurantoin, macrocrystal-monohydrate, (Macrobid) 100 MG capsule Indications: Acute cystitis with hematuria Take 1 capsule (100 mg) by mouth in the morning and 1 capsule (100 mg) before bedtime. Do all this for 7 days. 14 capsule 09/19/2024 09/26/2024 Activeomeprazole 40 mg delayed release oral capsule (20 sources)Proton Pump InhibitorStart: 85-87-9396rmat 1 capsule by mouth once dailyomeprazole (PriLOSEC) [address] capsule Indications: Peptic ulcer, site unspecified, unspecified as acute or chronic, without hemorrhage or perforation , Peptic ulcer Take 1 capsule (40 mg) by mouth Daily 100 capsule 3 01/18/2025 Activetake 1 capsule by mouth every twenty-four hoursOmeprazole 40 MG 1 capsule Orally Once a day Activepenicillin v potassium 500 mg oral tablet (20 sources)Start: 05-23-2025 End: 83-64-2405tcoq 1 tablet by mouth four times dailypotassium chloride 10 meq extended release oral capsule (2 sources)take 1 capsule by mouth every twenty-four hoursPotassium Chloride 10 MEQ 1 capsule with food Orally Once a day ActiveRespiratory Therapy Supplies (Nebulizer/Tubing/Mouthpiece) kit (15 sources)Start: 13-43-2324Txhawbwmtkw Therapy Supplies (Nebulizer/Tubing/Mouthpiece) kit Indications: Chronic obstructive pulmonary disease, unspecified COPD type (HCC) 1 each See administration instructions Use daily as needed per instructions on medication. 1 kit 04/18/2025 Active rOPINIRole 1 mg oral tablet (20 sources)Nonergot Dopamine AgonistStart: 05-16-2025 End: 89-90-8047cwng 1 tablet by mouth at bedtimerOPINIRole (Requip) 1 MG tablet Indications: Restless Leg Syndrome Take 1 tablet (1 mg) by mouth atbedtime 30 tablet 11 05/16/2025 05/16/2026 ActiveStart: 02-18-2025 End: 23-61-6399jhhx 1 tablet by mouth once daily at bedtimesaccharomyces boulardii 250 mg oral capsule (15 sources)take 1 capsule by mouth in the morningsaccharomyces boulardii (Florastor) 250 MG capsule Take 250 mg by mouth in the morning and 250 mg before bedtime. Activespironolactone 50 mg oral tablet (20 sources)Aldosterone AntagonistStart: 81-20-3960ehcw 1 tablet by mouth in the morningspironolactone (Aldactone) 50 MG tablet Take 50 mg by mouth in the morning. 09/24/2024 ActiveStart: 11-16-2023 End: 57-29-7102mewe 1 tablet by mouth once daily1 ml triamcinolone acetonide 40 mg/ml prefilled syringe (6 sources)CorticosteroidStart: 62-22-5329rinygfvwiyrik acetonide (Kenalog-40) injection 40 mgverapamil hydrochloride 180 mg extended release oral tablet (20 sources)Calcium Channel BlockerStart: 16-25-5416gqgs 2 tablets by mouth in the morningverapamil SR (Calan SR) 180 MG ER tablet Take 360 mg by mouth in the morning. 11/11/2024 ActiveStart: 41-04-7532dzeh 1 capsule by mouth once daily verapamil 180 mg Cap-ER 180 mg = 1 cap(s), Oral, Daily, Refills(s) 0 Start Date: 03/01/24 Status: OrderedStart: 04-49-8391myex 1 capsule by mouth once dailyStart: 81-24-6314slgn 1 capsule by mouth every twenty-four hoursStart: 02-14-2023 End: 55-51-0625agtd 1 capsule by mouth every twenty-four hours in the morning verapamil ER (Verelan) 180 MG 24 hr capsule Take 360 mg by mouth in the morning. 02/14/2023 12/17/2024 Discontinued (Duplicate order)take 1 capsule by mouth every twenty-four hoursVerapamil HCl ER 360 MG 1 capsule Orally Once a day ActiveVitamin C 500 MG (2 sources)Vitamin C 500 MG Orally ActiveVitamin D3 5000 intl units (125 mcg) oral tab (1 source)Start: 07-45-8988ktpw 1 tablet by mouth once dailyVitamin D3 5000 intl units (125 mcg) oral tab 125 mcg = 1 tab(s), Oral, Daily, # 90 tab(s), Refills( s) 0, Pharmacy: [facility]/pharmacy #[id number], 141, cm, 01/11/23 10:30:00 EDT, Height/Length Dosing, 107.2, kg, 01/11/23 10:30:00 EDT, Weight Dosing Start Date: 02/15/23 Status: Orderedwarfarin sodium 3 mg oral tablet (2 sources)Vitamin K Antagonisttake 1 tablet by mouth every twenty-four hours Warfarin Sodium 3 MG 1 tablet Orally Once a day Active Completed/Discontinued Medications MedicationDrug Class(es)DatesSig (Normalized)Sig (Original)8 hr acetaminophen 650 mg extended release oral tablet (20 sources)Start: 09-25-2024 End: 48-66-3928oefd 1 tablet by mouth every twelve hoursAcetaminophen (Tylenol Arthritis Pain) 650 mg tablet extended release Discontinued 650 MG PO Every 12 hours September 25, 2024 1:00am May 03, 2025 1:55pm End: 34-00-7255jlml 2 tablets by mouth every six hours for painacetaminophen (Tylenol) 500 MG tablet Indications: Axillary lymphadenopathy , Left arm pain Take 1,000 mg by mouth every 6 (six) hours if needed for mild pain 04/18/2025 Discontinued (Other)ascorbic acid 100 mg oral tablet (20 sources)Vitamin C End: 94-12-5716pkor 1 tablet by mouth in the morningAscorbic Acid (vitamin C) 100 MG tablet Take 100 mg by mouth in the morning. 10/04/2024 Discontinued ferrous sulfate 325 mg oral tablet (20 sources)Start: 09-25-2024 End: 31-43-0665wiyf 1 tablet by mouth once dailyFerrous Sulfate 325 mg (65 mg iron) tablet Discontinued 325 MG PO Daily September 25, 2024 1:00am May 03, 2025 1:55pmStart: 03-21-2024 End: 94-69-1288sgek 1 tablet by mouth at mealtimeferrous sulfate 325 (65 Fe) MG EC tablet Indications: Iron deficiency anemia due to chronic blood loss Take 1 tablet (325 mg) by mouth in the morning. Take with meals. Do not crush, chew, or split.. 90 tablet 03/21/2024 06/19/2024 Active End: 71-63-1768zbtv 1 tablet by mouth every other dayferrous sulfate 325 (65 Fe) MG tablet Take 325 mg by mouth every other day 10/04/2024 Discontinuedlidocaine 0.05 mg/mg topical ointment (18 sources)Antiarrhythmic, Amide Local AnestheticStart: 11-18-2023 End: 57-40-7833Ywngnbnux 5 % ointment Discontinued 1 APPLIC TOPICAL Daily November 18, 2023 1:00am September 25, 2024 12:16pmStart: 11-18-2023 End: 64-30-1326Fediwcrzv 5 % ointment Discontinued 1 APPLIC TOPICAL Daily November 18, 2023 12:00am September 11:16amStart: 54-31-2774Zywkgajdg Active 1 APPLIC TOPICAL Daily November 18, 2023 1:00amStart: 11-16-2023 End: 23-46-6216soycd 1 dose topically once dailyLidocaine 5 % adhesive patch,medicated Discontinued 1 PATCH TOPICAL Daily November 16, 2023 1:00am November 18, 2023 10:08am leave on most painful area for up to 12 hrsondansetron 4 mg disintegrating oral tablet (4 sources)Serotonin-3 Receptor AntagonistStart: 07-24-2024 End: 43-75-4229hdmq 1 tablet by mouth every eight hours as needed for nausea and vomiting and nausea and nauseaondansetron ODT (Zofran-ODT) 4 MG disintegrating tablet Indications: Nausea Take 1 tablet (4 mg) bymouth every 8 (eight) hours if needed for nausea or vomiting for up to 7 days 21 tablet 07/24/2024 07/31/2024 Problems Active Problems Problem ClassificationProblemDateDocumented DateEpisodic/Chronic Administrative/social admission (2 sources)Patient encounter status; Translations: [Other specified counseling] 73-04-5318XqgeopjbVqdqqrr dysrhythmias (20 sources)Unspecified atrial fibrillation; Translations: [Paroxysmal atrial fibrillation]Onset: 162753-23-9794QlqkvdnZxlmrdu obstructive pulmonary disease and bronchiectasis (20 sources)Chronic obstructive pulmonary disease, unspecified; Translations: [Centrilobular emphysema]Onset: 01-12-2012 Resolved: 97-74-1944EmaickoIcnucpq obstructive pulmonary disease and bronchiectasis (2 sources)Bronchitis; Translations: [Bronchitis, not specified as acute or chronic]19-35-3210AzuppvezTgirgrilzbj and hemorrhagic disorders (2 sources)Thrombophilia; Translations: [Other thrombophilia]70-09-7029Ownnpte Conduction disorders (20 sources)Presence of cardiac pacemaker; Translations: [Sinus node dysfunction]Onset: 116280-71-2739EfqltaaWxxnmtrxuq heart failure; nonhypertensive (20 sources)Chronic diastolic (congestive) heart failure; Translations: [Congestive heart failure]Onset: 837484-52-1031GiffwfwZnblookk atherosclerosis and other heart disease (20 sources)Atherosclerotic heart disease of [place] coronary artery without angina pectoris; Translations: [Coronary atherosclerosis]Onset: 01-12-2012 38-97-5144YgucxwiIkczoqdwfx and other anemia (20 sources)Iron deficiency anemia due to blood loss; Translations: [Iron deficiency anemia secondary to blood loss (chronic)]Onset: 776368-25-6075 ChronicDeficiency and other anemia (3 sources)Iron deficiency anemia secondary to blood loss (chronic); Translations: [Iron deficiency anemia secondary to blood loss (chronic)]Onset: 85-28-0945EphvzasIoqppdkzbg and other anemia (12 sources)Iron deficiency anemia; Translations: [Iron deficiency anemia, unspecified]Onset: 11-30-3595ZogzvgzwGgyhveswdj and other anemia (8 sources)Iron deficiency anemia, unspecified; Translations: [Iron deficiency anemia, unspecified]Onset: 663629-27-0060CifjmixwCostzpmguv and other anemia (2 sources)Deficiency and other anemiaDisorders of lipid metabolism (20 sources)Hyperlipidemia, unspecified; Translations: [Hyperlipidemia]Onset: 377946-48-3283OyygmedExsqvzkvtywzyc and diverticulitis (20 sources)Diverticulosis of sigmoid colon; Translations: [Diverticulosis of large intestine without perforation or abscess without bleeding]Onset: 339678-38-3513TsqawmuGsufojavcm disorders (20 sources)Gastroesophageal reflux disease without esophagitis; Translations: [Gastro-esophageal reflux disease without esophagitis]Onset: 26-59-3766Enxujmo Essential hypertension (20 sources)Essential hypertension; Translations: [Essential (primary) hypertension]Onset: 107724-21-7626KoiakqeQohguryacagnwh ulcer (except hemorrhage) (20 sources)Peptic ulcer; Translations: [Peptic ulcer, site unspecified, unspecified as acute or chronic, without hemorrhage or perforation]Onset: 355765-85-2178QfcnvkzYnvdhwtlxmogq symptoms and ill-defined conditions (6 sources)Scalding pain on urination ; Translations: [Dysuria]09-19-2024 EpisodicHeadache; including migraine (1 source)Uxygnsyj42-35-2054XeolgfjBnmhstqi; including migraine (3 sources)Headache; including migraine; Translations: [HEADACHE UNSPECIFIED] Onset: 39-89-7303Ulrryzyil (6 sources)Nonalcoholic steatohepatitis; Translations: [Nonalcoholic steatohepatitis (LOJA)]Onset: 08-26-2021 Resolved: 58-00-4999NffryapEtusikszqnhu with complications and secondary hypertension (1 source)Hypertensive heart disease with heart failure; Translations: [HTN HEART DISEASE W/HEART FAIL]Onset: 28-39-2556TkvabyyAqwppwrdynahg and screening for infectious disease (2 sources)Vaccination needed; Translations: [Encounter for immunization] 64-60-2464LmonngduNlng disorders (1 source)Depressive uccaheof89-17-1673AyocorwYgdgtoo on above:Per pt she had a bought of depresseion after her but she denies any chronic depression.Nausea and vomiting (6 sources)Nausea; Translations: [Nausea]36-05-8421FtpnwnbpRvfvjdynvcvv breast conditions (2 sources)Acute mastitis; Translations: [Mastitis without abscess]10-17-2024 EpisodicNonspecific chest pain (1 source)Chest pain, unspecified; Translations: [CHEST PAIN UNSPECIFIED]Onset: 78-88-2601PvdksemrHoxtfdttese deficiencies (20 sources)Vitamin D deficiency; Translations: [Vitamin D deficiency, unspecified]Onset: 142384-22-4675NdruckgYdbzcxdibexgse (20 sources)Arthritis of acromioclavicular joint; Translations: [Primary osteoarthritis, right shoulder]Onset: 776111-46-0683RkioqirRzcef aftercare (4 sources)Encounter for therapeutic drug level monitoring; Translations: [ENC THERAPEUTC DRUG LEVL MONITORING]Onset: 48-76-5001JwbxdpnwSrpko aftercare (1 source)senior care (current) use of anticoagulants; Translations: [FDC CURRNT USE 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]Onset: 71-44-6725MbkzahnmTtaro aftercare (1 source)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; Translations: [OTH FDC CURRENT DRUG THERAPY]Onset: 48-94-9382PjesvmiuLvyiu and ill-defined heart disease (20 sources)Diastolic dysfunction; Translations: [Other ill-defined heart diseases]Onset: 892634-40-5796JsosetySichh connective tissue disease (4 sources)History of reverse prosthetic total arthroplasty of left shoulder; Translations: [Presence of left artificial shoulder joint]21-69-6473ZyuzhouRayys connective tissue disease (2 sources)Presence of left artificial shoulder joint; Translations: [Presence of left artificial shoulder joint]Onset: 10-58-2045ZwwjhncZthtt connective tissue disease (4 sources)Radicular pain; Translations: [Neuralgia and neuritis, unspecified] 45-20-2247MhfaxaokFjapt connective tissue disease (4 sources)Pain in left arm; Translations: [Pain in left arm]26-46-0301Qpnzlfrp Other gastrointestinal disorders (20 sources)Irritable bowel syndrome; Translations: [Irritable bowel syndrome without diarrhea]Onset: 097432-07-1855UexxemeNcvcf gastrointestinal disorders (1 source)Abnormal feces; Translations: [Other fecal abnormalities]Onset: 10-05-5682NsffbrizPsxex hematologic conditions (1 source)Other specified abnormalities of plasma proteins; Translations: [OTH SPEC ABNORM PLASMA PROTEINS]Onset: 16-51-4525UzltjkakDwnlm hereditary and degenerative nervous system conditions (2 sources)Restless legs; Translations: [Restless legs syndrome]02-18-2025 ChronicOther injuries and conditions due to external causes (6 sources)Injury of shoulder and upper arm; Translations: [Unspecified injury of left shoulder and upper arm,sequela]92-89-3212ScnnhbasWnrta liver diseases (2 sources)Cirrhosis of liver; Translations: [Unspecified cirrhosis of liver] ChronicOther liver diseases (2 sources)Unspecified cirrhosis of liverOnset: 08-26-2021 Resolved: 08-56-8401PpunzpaNbmjh liver diseases (1 source)Fatty (change of) liver, not elsewhere classified; Translations: [FATTY CHANGE LIVER NEC]Onset: 05-40-2686KfwkjfgUkuds liver diseases (20 sources)Steatosis of liver; Translations: [Fatty (change of) liver, not elsewhere classified]Onset: 595224-77-4334LzkkbbtVyxwluo on above:non alcoholicOther nervous system disorders (2 sources)Chronic pain; Translations: [Other chronic pain]ChronicOther nervous system disorders (20 sources)Chronic low back pain; Translations: [Other chronic pain]Onset: 939073-32-0067BrntjenAwjfr nutritional; endocrine; and metabolic disorders (2 sources)Morbid obesity; Translations: [Morbid (severe) obesity due to excess calories]ChronicOther nutritional; endocrine; and metabolic disorders (2 sources)Morbid (severe) obesity due to excess calories; Translations: [MORBID SEVERE OBES D/T EXCESS BINDU]Onset: 08-26-2021 Resolved: 91-24-5173VcofmigDgobd nutritional; endocrine; and metabolic disorders (1 source)Body mass index (BMI) 50.0-59.9, adult; Translations: [BODY MASS INDEX BMI 50.0-59.9 ADULT]Onset: 99-39-5961RnefuikTmbdl nutritional; endocrine; and metabolic disorders (4 sources)Obesity, unspecified; Translations: [OBESITY UNSPECIFIED]Onset: 59-46-5748XpfzcndXyumn nutritional; endocrine; and metabolic disorders (20 sources)Hypocalcemia; Translations: [Hypocalcemia]Onset: 03-01-2023 64-30-6272YzsxuswXgqte nutritional; endocrine; and metabolic disorders (20 sources)Obesity; Translations: [Obesity, unspecified]Onset: 12-29-2012 69-67-0788HoqedrpCiqju nutritional; endocrine; and metabolic disorders (3 sources)Body mass index 40+ - severely obese; Translations: [Body mass index (BMI) 40.0-44.9, adult]58-54-8893YuizztcWpagm nutritional; endocrine; and metabolic disorders (1 source)Obese class WSE59-71-8849KuyygjwNjobt nutritional; endocrine; and metabolic disorders (2 sources)Obesity caused by energy imbalance; Translations: [Morbid (severe) obesity due to excess calories]84-43-4255ZyktzkfNbmzk screening for suspected conditions (not mental disorders or infectious disease) (20 sources)Ultrasound scan abnormal; Translations: [Abnormal findings on diagnostic imaging of other specifiedbody structures]Onset: ChronicOther upper respiratory infections (9 sources)Acute sinusitis, unspecified; Translations: [Acute sinusitis]Onset: 618508-87-5253YhqgklzlBtnriehwj; thrombophlebitis and thromboembolism (2 sources)Phlebitis; Translations: [Phlebitis and thrombophlebitis of other sites]54-84-6520TnmnjwqpMcdjvbnif heart disease (20 sources)Pulmonary hypertension; Translations: [Pulmonary hypertension, unspecified]Onset: 314706-37-2338JrrbffnFgalpdoa codes; unclassified (7 sources)Obstructive sleep apnea (adult) (pediatric); Translations: [OBSTRUCTIVE SLEEP APNEA]Onset: 34-50-8587PzkfkkgEwzjzjmc codes; unclassified (20 sources)Obstructive sleep apnea syndrome; Translations: [Obstructive sleep apnea (adult) (pediatric)]Onset: 279806-19-4907VlrypwwRbsmcvzrr and history of mental health and substance abuse codes (1 source)Personal history of nicotine dependence; Translations: [PERSONAL HISTORY OF NICOTINE DEPEND]Onset: 58-13-4114SulylgbbPgiwszvlxfy; intervertebral disc disorders; other back problems (20 sources)Cervical spondylosis; Translations: [Spondylosis without myelopathy or radiculopathy, cervical region]Onset: 91-78-5187FugsctxJsmtucgnwuzo (2 sources)LOW BACK PAIN, UNSPECIFIED; Translations: [LOW BACK PAIN, UNSPECIFIED]Onset: 73-07-7569Qcrnaqnfdexz (1 source)Chronic atrial fibrillation, unspecified; Translations: [CHRONIC ATRIAL FIBRILLATION UNSPEC]Onset: 96-04-7327Ioaoxaqbqola (1 source)CONTACT W/AND (SUSP) EXPOS COVID-19; Translations: [CONTACT W/AND (SUSP) EXPOS COVID-19]Onset: 39-28-0123Lmfyunyapjwe (4 sources)COUGH, UNSPECIFIED; Translations: [COUGH, UNSPECIFIED]Onset: 21-77-0768Lznhqwzqbkxi (2 sources)Left shoulder pain, unspecified lyuzzaglbb82-06-6633Whiqojxicbhx (2 sources)PACEMAKEROnset: 95-16-7919Znqzfsj tract infections (4 sources)Acute cystitis; Translations: [Acute cystitis with hematuria] 42-50-7439MdiqpoxaOmkwo infection (1 source)Herpes fwskez93-96-5055GuvadozbYynhhto on above:05/2019 Past or Other Problems Problem ClassificationProblemDateDocumented DateEpisodic/ChronicAbdominal hernia (20 sources)Diaphragmatic hernia; Translations: [Diaphragmatic hernia without obstruction or gangrene]Onset: 01-65-3811KmgkreejResotoabzclk of device; implant or graft (20 sources)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; Translations: [Pain due to internal orthopedic prosthetic devices, implants and grafts, initial encounter] Onset: 006220-64-4277OzpnnrpvMdctgtjtyp and other anemia (20 sources)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; Translations: [Other specified anemias]Onset: 845784-58-7036GwkzdncvYeskytcf of lower limb (20 sources)Closed fracture of fifth metatarsal bone; Translations: [Displaced fracture of fifth metatarsal bone, left foot, initial encounter for closed fracture]Onset: 885112-00-4793TiucisjuQrxwrcyubhyrj (20 sources)Axillary lymphadenopathy; Translations: [Localized enlarged lymph nodes]Onset: 749930-55-5915FyllvdcgNkam disorders (20 sources)Mood disordersOnset: 171375-01-7500Ixvoh circulatory disease (20 sources)Vascular insufficiency; Translations: [Venous insufficiency (chronic) (peripheral)]Onset: 825027-20-4159FtayssguAzsqq connective tissue disease (2 sources)Pain of left hand; Translations: [Pain in left hand]EpisodicOther connective tissue disease (2 sources)Pain in left foot; Translations: [Pain in left foot]EpisodicOther connective tissue disease (20 sources)Impingement syndrome of right shoulder region; Translations: [Impingement syndrome of right shoulder]Onset: 718854-49-9780UjukfczsEgzcf connective tissue disease (20 sources)Disorder of bursa of shoulder region; Translations: [Bursopathy, unspecified]Onset: 327349-90-9674UefabdjtAtcit diseases of veins and lymphatics (2 sources)Venous insufficiency (chronic) (peripheral); Translations: [Venous insufficiency (chronic) (peripheral)]Onset: 82-25-4454YbdttkhmCzjic gastrointestinal disorders (2 sources)Dysphagia; Translations: [Dysphagia, unspecified]EpisodicOther gastrointestinal disorders (20 sources)Occult blood in stools; Translations: [Other fecal abnormalities] Onset: 959814-27-1924PcupxfcbLrjsg inflammatory condition of skin (4 sources)Other pruritus; Translations: [OTHER PRURITUS]Onset: 07-13-2022 EpisodicOther lower respiratory disease (1 source)Snoring; Translations: [SNORING]Onset: 43-17-8684WchakngdUpnit lower respiratory disease (5 sources)Other nonspecific abnormal finding of lung field; Translations: [OTH NONSPECIFIC ABN FIND LNG FIELD]Onset: 63-58-5794NgqrxirrHzgbd lower respiratory disease (5 sources)Shortness of breath; Translations: [SHORTNESS OF BREATH]Onset: 02-60-5547JyhjlbhxQzjsc lower respiratory disease (1 source)Hemoptysis; Translations: [HEMOPTYSIS]Onset: 82-83-8534KkffddpwBtwrc non-traumatic joint disorders (20 sources)Shoulder pain; Translations: [Pain in left shoulder]Onset: 891649-64-1641IajbmkazMowtn non-traumatic joint disorders (2 sources)Knee pain; Translations: [Pain in left knee]EpisodicOther non- traumatic joint disorders (20 sources)Pain in left knee; Translations: [Pain in joint, lower leg]Onset: 597000-70-6142EsqtzakyXzsul non-traumatic joint disorders (12 sources)Pain in left shoulder; Translations: [Pain in joint, shoulder region]Onset: 794617-84-2509EvulkcclCmptr non-traumatic joint disorders (1 source)Chronic pain of left upper limb; Translations: [Pain in left shoulder] 22-25-4514IazgqvenPgwmp screening for suspected conditions (not mental disorders or infectious disease) (15 sources)Abnormal coagulation profile; Translations: [Encounter for screening mammogram for malignant neoplasm of breast]Onset: 80-68-6669YphvbhsmMagglnwx codes; unclassified (20 sources)Edema; Translations: [Edema, unspecified]Onset: EpisodicResidual codes; unclassified (20 sources)H/O: Disorder; Translations: [Personal history of other specified conditions]Onset: 28-43-1713UpdublmkOluzbxvuhqu; intervertebral disc disorders; other back problems (20 sources)Cervical radiculopathy; Translations: [Radiculopathy, cervical region]Onset: 472416-46-2097JvkbgkzsIfqehurhvxu injury; contusion (20 sources)Contusion of shoulder region; Translations: [Contusion of left shoulder, initial encounter]Onset: 677370-57-1582RayiislaIfowyybcnyhf (1 source)LOW BACK PAIN, UNSPECIFIED; Translations: [LOW BACK PAIN, UNSPECIFIED] Onset: 59-26-2585Awjcovxncmny (1 source)COUGH, UNSPECIFIED; Translations: [COUGH, UNSPECIFIED]Onset: 98-32-1734Wfhgurcomeol (2 sources)History of reverse prosthetic total arthroplasty of left shoulder 34-11-6804Ptftnhucyvoe (2 sources)Asymptomatic microscopic lbrgbyjne96-10-0571 Results Test NameValueInterpretationReference RangeFacilityAmbulatory Visit Summaryon 64-43-1612Gmolzmhzsl Visit SummaryAmbulatory Visit Summary BREANN STARKS :1945 Visit Date:07/24/2025 Ambulatory Visit Instructions Your Diagnosis Asymptomatic microscopic hematuria UTI (urinary tract infection) Incomplete emptying of bladder Your Care Team Attending Physician - Danna King MD Primary Care Physician - RENNY HANSEN MD Referring Physician - RENNY HANSEN MD This Is Your Medications List Contact prescribing physician if questions or concerns acetaminophen-hydrocodone (acetaminophen-hydrocodone 325 mg-5 mg oral tablet) acetaminophen-hydrocodone (acetaminophen-hydrocodone 325 mg-5 mg oral tablet) apixaban (Eliquis 5 mg oral tablet) baclofen (baclofen 10 mg Tab) cholecalciferol (Vitamin D3 5000 intl units (125 mcg) oral tab) flecainide (flecainide 100 mg Tab) furosemide (Lasix 40 mg Tab) multivitamin with minerals (Centrum Women 50 Plus Multigummies oral tablet, chewable) omeprazole (omeprazole 40 mg Cap-DR) penicillin V potassium (penicillin V potassium 500 mg Tab) spironolactone (spironolactone 25 mg Tab) verapamil (verapamil 180 mg Cap-ER) Procedures Performed Colonoscopy (03/07/2024), EGD - esophagogastroduodenoscopy (03/07/2024), Cardiac pacemaker (09/20/2021), History of right total knee replacement (09/12/2003), History of left total knee replacement (09/12/2001), Appendectomy, Arthroscopy of knee, Arthroscopy of shoulder, Cardiac catheter, Colonoscopy, Ligation of fallopian tube, Rotator cuff repair, YANELI BSO - Total abdominal hysterectomy and bilateral salpingo-oophorectomy. Discharge Vitals Heart Rate (Peripheral) 60 Respiratory Rate 18 Blood Pressure 134/64 Height 150 cm Height 59 in Weight 101 kg Weight 222.667 lb BMI 44.89 Medications What How Much When Instructions Unchanged acetaminophen-hydrocodone (acetaminophen-hydrocodone 325 mg-5 mg oral tablet) 1 Tablets By Mouth 2 times a day Contact prescribing physician if questions or concerns Unchanged acetaminophen-hydrocodone (acetaminophen-hydrocodone 325 mg-5 mg oral tablet) Contact prescribing physician if questions or concerns [...] prescribing physician if questions or concerns Unchanged penicillin V potassium (penicillin V potassium 500 mg Tab) Contact prescribing physician if questions or concerns [...] that you are currently receiving treatment for. Arthritis Asymptomatic microscopic hematuria Atrial fibrillation BMI 50.0-59.9, adult Cervical radiculopathy CHF (congestive heart failure) Chronic obstructive pulmonary disease Chronic obstructive pulmonary disease Class 3 obesity Coronary atherosclerosis Deafness Essential hypertension Fatty liver Heart disease Hiatal hernia Hiatal hernia with GERD History of ulcer disease Hypocalcemia Incomplete emptying of bladder Iron deficiency anemia Morbid obesity with BMI of 40.0-44.9, adult Osteoarthritis of both knees Osteoarthritis of lumbar spine Peptic ulcer disease Positive fecal occult blood test PSVT (paroxysmal supraventricular tachycardia) Shingles Sinus node dysfunction Spinal stenosis UTI (urinary tract infection) Venous insufficiency Vitamin D deficiency Historical - Any problem that you are no longer receiving treatment for. Depression History of stroke Migraines Patient Survey You may receive a survey via text or e-mail asking about your office visit. Please share your experience with us by completing your survey. We appreciate your feedback and thank you for choosing us for your care. Patient Portal You may access all of your results and other medical record information on our secure patient portal. If you are not sig (more content not included)...Normal [facility] HospitalUrinal[facility] with Micro SPon 39-89-0422ZF Spec Desc Clean CatchNormalFisher Thomas B. Finan CenterComment on above:Performed By: #### [id number] #### [facility] [address] [place] [address]NB Spec DescClean CatchNormalFisher Thomas B. Finan CenterComment on above:Performed By: #### [id number] #### [facility] [address] [place], [place] [address]END LIPID PROFILE (FASTING)on 73-26-7579HEXB HDL RATIO2.4NOMS HealthcareComment on above:3.3 - 4.4 LOW RISK 4.4 - 7.1 AVERAGE RISK 7.1 - 11.0 MODERATE RISK >11.0 HIGH RISK Cholesterol [Mass/Vol]134 mg/dLNINF - 200 mg/dLNOMS HealthcareCholesterol in HDL [Mass/Vol]55 mg/dL40 - 60 mg/dLNOMS HealthcareComment on above:> or =60 mg/dl - LOW CARDIOVASCULAR RISK <40 mg/dl - HIGH CARDIOVASCULAR RISK Magnesium [Mass/Vol]68.8 mg/dLNOLA HealthcareComment on above:<100 mg/dl OPTIMAL 100-129 mg/dl NEAR OR ABOVE OPTIMAL 130-159 mg/dl BORDERLINE HIGH 160-189 mg/dl HIGH >190 mg/dl VERY HIGH Magnesium [Mass/Vol]10.2 mg/dLNOMS HealthcareTriglyceride [Mass/Vol]51 mg/dLNINF - 150 mg/dLNOMS HealthcareCLINISYNCNOMS HealthcareOffice Visiton 07-10-2025 Follow-up [id number] Breann Starks Jonah 1945 F Date Provider Department Center 07/10/20[id number] Family History Adopted: Yes Family history unknown: Yes Family Status - Relation Status Age at Mother Father Level of Service:97240 DC OFFICE/OUTPATIENT ESTABLISHED MOD MDM 30 MIN Reason for Visit and Comments: Coronary Artery Disease [187] PSVT [Other] Hypertension [097071] Atrial Fibrillation [80] Sinus node dysfunction [Other] Pulmonary Hypertension [818] Premature beats [Other] Venous insufficiency [Other] Pacemaker [Other] Shortness of Breath [] - SOB/LEA with exertion, Palpitations [] - Palpitations which she describes as a vibration feeling in her upper chestNormalUniversavita health system [facility]36on 60-61-461828Fy is requesting refill on penicillinNormalUniversity of [facility] Medical CenterHenry Kam 10-05-8229Uyjllf [id number] Breann Starks 1945 F Date Provider Department Center 06/14/2025 [facility] INF Carol Ann Heal Family History Adopted: Yes Family history unknown: Yes Family Status - Relation Status Age at Mother Father DeceasedNormalUniversity Wexner Medical CenterLon 06-06-2025L Specimen: [id number] Received: 06/06/25 Status: ETHAN Burgess Num: [id number] Spec Type: Surgical Subm Dr: Dawson Gustafson MD Tissues: A Small Intestine - Biopsy/Polyp (SMALL BOWEL BX) B Gastric Biopsy (GASTRIC BX) Procedures: HE/4, Gross/Micro L4/2, H PYLORI, IHC First AB Age/ Patient Sex Location Account Attending Physician Breann Starks 79/F [id number] Dawson Gustafson MD SPEC NUM: [id number] RECD: 06/06/25 STATUS: ETHAN BURGESS NUM: [id number] FAITH: 06/06/[address] [facility] [address]: Dawson Gustafson MD ENTERED: 06/06/25 [facility] DR: NORMA TYPE: Surgical DEPT: S ENTERED BY: [id number] RECV BY: [id number] ORDERED: HE/4, Gross/Micro L4/2, H PYLORI, IHC First AB ORDERED: HE/4, Gross/Micro L4/2, H PYLORI, IHC First AB Pathological Diagnosis A. Small bowel biopsy: - Small intestinal mucosa with no significant histopathologic findings; histologic features of celiac disease not identified. B. Gastric biopsy: - Mild chronic gastritis; negative for Helicobacter, metaplasia or dysplasia. Clinical Information Iron deficient anemia, Part A rule out celiac, Part B rule out H. pylori Gross Description Part A is received in formalin labeled with the patients date of , and [place], small bowel biopsy are 2 guaman-colmenares, focally erythematous, friable, 0.3 cm each in greatest dimension tissue bits. The specimen is entirely submitted in a single cassette. (1, ns, [id number] A) Part B is received in formalin labeled with the patients date of , and [place], gastric biopsy are 2 guaman-colmenares, focally erythematous, friable, 0.3 and 0.4 cm in greatest dimension tissue bits. The specimen is entirely submitted in a single cassette. (1, ns, [id number] B) Specimen: [id number] Received: 06/06/25 Status: ETHAN Burgess Num: [id number] Spec Type: Surgical Subm Dr: Dawson Gustafson MD Tissues: A Small Intestine - Biopsy/Polyp (SMALL BOWEL BX) B Gastric Biopsy (GASTRIC BX) Procedures: HE/4, Gross/Micro L4/2, H PYLORI, IHC First AB Patient: Breann Starks Jonah [id number] (Continued) Specimen: [id number] Received: 06/06/25 (Continued) Signed (signature on file) Kevin Wright JR, MD 06/10/25 0955 Specimen: [id number] Received: 06/06/25 Status: ETHAN Burgess Num: [id number] Spec Type: Surgical Subm Dr: Dawson Gustafson MD Tissues: A Small Intestine - Biopsy/Polyp (SMALL BOWEL BX) B Gastric Biopsy (GASTRIC BX) Procedures: HE/4, Gross/Micro L4/2, H PYLORI, IHC First AB Patient: Breann Starks [id number] (Continued) Specimen: [id number] Received: 06/06/25 (Continued) Microscopic Description A?B. Microscopic examination was completed. B. Helicobacter stain is negative CPT Codes 59205p 2, 62835 Specimen: [id number] Received: 06/06/25 Status: ETHAN Burgess Num: [id number] Spec Type: Surgical Subm Dr: Dawson Gustafson MD Tissues: A Small Intestine - Biopsy/Polyp (SMALL BOWEL BX) B Gastric Biopsy (GASTRIC BX) Procedures: HE/4, Gross/Micro L4/2, H PYLORI, IHC First AB Patient: Breann Starks [id number] (Continued) Signed (signature on file) Kevin Wright JR, MD 06/10/25 0955[facility] Physician Ddlzw20cg 14-68-448793Heuchfy has been informed and has no further questions at this timeNormalUniKindred Healthcare36Patient called in inquiring if she is able to start physical therapy for shoulder strengthening ordered by pain management due to her being treated with an active infectionNormalUniversity Wexner Medical CenterFollow-Upon 56-56-7955Lrbqao-[id number] Breann Starks 1945 F Date Provider Department Center 05/15/2025 [facility] INF Carol Ann Heal Family History Adopted: Yes Family history unknown: Yes Family Status - Relation Status Age at Mother Father Level of Service:92460 DC OFFICE/OUTPATIENT ESTABLISHED LOW MDM 20 MIN Reason for Visit and Comments: Follow-up [056911] - Redness in arm is still there. Stills achy and very painful.NormalUniversity of Nunez Medical CenterOrders Onlyon 19-59-4486Ljaxzw [id number] Breann Starks 1945 F Date Provider Department Center 05/15/2025 [id number], HISTORICAL [facility] INF Carol Ann Heal Family History Adopted: Yes Family history unknown: Yes Family Status - Relation Status Age at Mother Father DeceasedNormalUniKindred HealthcareNo Panel Informationon 51-57-8054BWOBXZKTQPBRIB EPIDERMIDIS, HAEMOLYTICUS, LUGDUNENSIS, SAPROPHYTICUS (FJFCS6PODI HealthcareSTAPHYLOCOCCUS EPIDERMIDIS, HAEMOLYTICUS, LUGDUNENSIS, SAPROPHYTICUS (URINANot detectedNOMS HealthcareURINARY TRACT INFECTION (HTRX)on 35-40-7015MGYFBYUBGEHRT LNOHICJQ5HGMN HealthcareACINETOBACTER BAUMANIINot detectedNOMS HealthcareCANDIDA ALBICANS, PARAPSILOSIS, XNKMAIMRMH0NZIC HealthcareCANDIDA ALBICANS, PARAPSILOSIS, TROPICALISNot detectedNOMS Healthcare RASHID [id number] HealthcareCANDIDA GLABRATANot detectedNOMS Healthcare RASHID [id number] HealthcareCANDIDA KRUSEINot detectedNOMS Healthcare CITROBACTER [id number] HealthcareCITROBACTER FREUNDIINot detectedNOMS HealthcareENTEROBACTER AEROGENES, [id number] HealthcareENTEROBACTER AEROGENES, CLOACAENot detectedNOMS HealthcareENTEROCOCCUS FAECALIS, BSHANMG5ECHF HealthcareENTEROCOCCUS FAECALIS, FAECIUMNot detectedNOMS HealthcareESCHERICHIA COLI22.906AbnormalNOMS HealthcareESCHERICHIA COLIDetectedAbnormalNOMS Healthcare Interpretation and review of laboratory resultsAbnormalNOMS HealthcareKLEBSIELLA PNEUMONIAE, MPGJVKG9EFKL HealthcareKLEBSIELLA PNEUMONIAE, OXYTOCANot detected NOMS HealthcareMORGANELLA LQDGAOBO0DWJD HealthcareMORGANELLA MORGANIINot detectedNOMS HealthcarePROTEUS MIRABILIS, SCLHQDDA8ZLID HealthcarePROTEUS MIRABILIS, VULGARISNot detectedNOMS HealthcarePSEUDOMONAS TWOTYAJTPG1YTNG HealthcarePSEUDOMONAS AERUGINOSANot detectedNOMS HealthcareSERRATIA MARCESCENS0 NOMS HealthcareSERRATIA MARCESCENSNot detectedNOMS HealthcareSTAPHYLOCOCCUS RPMTJV4DKBG HealthcareSTAPHYLOCOCCUS AUREUSNot detectedNOMS Healthcare STREPTOCOCCUS AGALACTIAE (GROUP B STREP)0NOMS HealthcareSTREPTOCOCCUS AGALACTIAE (GROUP B STREP)Not detectedNOMS HealthcareSTREPTOCOCCUS PYOGENES (GROUP A STREP)0NOMS HealthcareSTREPTOCOCCUS PYOGENES (GROUP A STREP)Not detectedNOMS HealthcareTET B, TET M27.112AbnormalNOMS HealthcareTET B, TET MDetectedAbnormal NOMS HealthcareNOLA HealthcareALL CBC WITH AUTO DIFFon 21-47-6333DVQYLKXMZ ABSOLUTE AUTO0.1NOMS HealthcareBasophils/100 WBC (Bld)0.6 %0.2 - 2.0 %NOMS HealthcareEosinophils/100 WBC (Bld)2.2 %0.9 - 7.0 %NOMS HealthcareErythrocyte distribution width (RBC) [Ratio]16.6 %High11.0 - 15.0 %NOMS HealthcareHematocrit (Bld) [Volume fraction]26.4 %Low36.0 - 48.0 %NOMFreeman Health SystemHemoglobin (Bld) [Mass/Vol]7.9 g/dLLow12.0 - 16.0 g/dLNOSaint John's HospitalIMMATURE GRANULOCYTES ABS AUTO0.02NOLA HealthcareImmature granulocytes/100 WBC (Bld)0.2 %0.0 - 0.5 %[facility] HealthcareInterpretation and review of laboratory resultsAbnormalNOSaint John's Hospital LYMPHOCYTES ABSOLUTE KHAF7JMOX [facility] Doctors HospitalLymphocytes/100 WBC (Bld)23.5 %20.5 - 60.0 %[facility] HealthMCH (RBC) [Entitic mass]22.3 pgLow26.7 - 34.0 pgNOCenterPointe HospitalHC (RBC) [Mass/Vol]29.9 g/dL29.9 - 35.2 g/dLNOSaint John's HospitalMCV (RBC) [Entitic vol]74.6 fLLow81.0 - 99.0 fLNOLA HealthcareMONOCYTES ABSOLUTE AUTO0.6 NOMS HealthcareMonocytes/100 WBC (Bld)7.1 %1.7 - 12.0 %NOM Healthcare NEUTROPHILS ABSOLUTE AUTO5.7NOMS HealthcareNeutrophils/100 WBC (Bld)66.4 %43.0 - 75.0 %NOMFreeman Health SystemPlatelet mean volume (Bld) [Entitic vol]8.7 fLLow9.5 - 13.5 fLNOMS HealthcareTBH EO #0.2NOMS HealthcareTBH QIY996BALZ HealthcareTBH RBC3.54 LowNOMS HealthcareTBH WBC8.6NOMS HealthcareCLINISYNCNOMS HealthcareUrinalysis macro (dipstick) panel (U)on 38-21-5892Wabzbqnrj, UANegativeNegative - 4(70) +++ mg/dLNOMS HealthcareBlood, UAPositiveNegative - 50 Shadi/mcLNOLA Healthcare Clarity, UAClearNOMS HealthcareColor, UAYellowNOMS HealthcareGlucose, UANegative Negative - 2000(110) ++++ mg/dLNOLA HealthcareInterpretation and review of laboratory resultsAbnormalNOLA HealthcareKetones, UANegativeNegative - 160(16) ++++ mg/dLNOLA HealthcareLeukocytes, UANegativeNegative - 500+++ Rosette/mcLNOLA HealthcareNitrite, UANegativeNegative - PositiveNOMS HealthcarepH, UA65 - 9NOMS HealthcareProtein, UANegativeNegative - 2000(20) ++++ mg/dLNOMS HealthcareSpec Grav, UA1.051 - 1.03NOLA HealthcareUrobilinogen, UA0.20.2 - 12 mg/dLNOLA HealthcareNOMS HealthcareALL BASIC METABOLIC PANELon 27-30-9593Slwdn gap [Moles/Vol]13.7 mmol/LNOMS HealthcareCalcium [Mass/Vol]9.3 mg/dL8.5 - 10.1 mg/dL NOMS HealthcareChloride [Moles/Vol]100 mmol/L98 - 107 mmol/LNOMS HealthcareCO2 [Moles/Vol]27.6 mmol/L21.0 - 32.0 mmol/LNOMS HealthcareCreatinine [Mass/Vol]0.78 mg/dL0.55 - 1.02 mg/dLNOLA HealthcareGFR/1.73 sq M.predicted CKD-EPI (S/P/Bld) [Vol rate/Area]>60>=60 mL/min/1.73m 2NOMS HealthcareGlucose [Mass/Vol]100 mg/dL 74 - 106 mg/dLNOLA HealthcareInterpretation and review of laboratory results AbnormalNOMS HealthcarePotassium [Moles/Vol]4.3 mmol/L3.5 - 5.1 mmol/LNOMS HealthcareSodium [Moles/Vol]137 mmol/L136 - 145 mmol/LNOMS HealthcareTBH EGFR- NON AF PANAMANIAN>60>=60 mL/min/1.73m 2NOMS HealthcareUrea nitrogen [Mass/Vol]22 mg/dLHigh7.0 - 18.0 mg/dLNOMS HealthcareUrea nitrogen/Creatinine [Mass ratio] 28.2 mg/mgNOMS HealthcareALL C REACTIVE PROTEINon 37-66-5836XUP [Mass/Vol]mg/L NINF - 0.50 mg/dLNOLA HealthcareNo Panel Informationon 66-66-1531VQGQJUIXXOKIW HealthcareFollow-Upon 02-50-6048Koijhm-[id number] Breann Starks T 1945 Date Provider Department Center 02/20/2025 JAIR BOLAND [facility] INF Carol Ann Rachel Family History Adopted: Yes Family history unknown: Yes Family Status - Relation Status Age at Mother Father Level of Service:05016 DC OFFICE/OUTPATIENT ESTABLISHED MOD MDM 30 [facility] HospitalOrders Onlyon 66-50-1215Uetdvm [id number] KevinjjBreann T 1945 Provider Department Center 02/13/2025 DMITRIY IVERSON [facility] CARD UT HeartVAS Family History Adopted: Yes Family history unknown: Yes Family Status - Relation Status Age at Mother Father DeceasedNormalURegency Hospital Cleveland West36on [id number] called the patient. Labs are okay. Continue penicillin.NormalUnMercy Health Clermont HospitalTelephoneon [id number] Breann Starks T 1945 Date Provider Department Center 01/18/2025 JAIR BOLAND [facility] INF Carol Ann Rachel Family History Adopted: Yes Family history unknown: Yes Family Status - Relation Status Age at Mother Father DeceasedNormalUniKindred HealthcareBASIC METABOLIC PANELon 72-50-6348Vanks gap [Moles/Vol]10 mmol/LNormal7-20UnMercy Health Clermont HospitalComment on above:Performed By: #### [id number] ####[facility] ([facility])[address] [place], [place] [address]Icalbow [Mass/Vol]8.9 mg/dLNormal 8.6-10.3UnMercy Health Clermont HospitalComment on above:Performed By: #### [id number] ####[facility] ([facility])[address] [place], [place] [address]Dhlbqbdt [Moles/Vol]103 mmol/WCxkzjw86-047OsbwyijuvoMercy Health Clermont HospitalComment on above:Performed By: #### [id number] ####[facility] ([facility])[address] [place], [place] [address]NH6 [Moles/Vol]26 mmol/YOgjczh66-47TwszawifkyMercy Health Clermont HospitalComment on above:Performed By: #### [id number] ####[facility] ([facility])[address] [place], [place] [address]Xzrfmdgbyn [Mass/Vol]0.64 mg/dLNormal 0.60-1.20UnMercy Health Clermont HospitalComment on above:Performed By: #### [id number] ####[facility] ([facility])[address] [place], [place] [address]JRFXKGDIXP FILTRATION RATE ML/MIN/1.73 SQ M.AKVOKXQZI27.0 mL/min/1.73m*2Normal>60.0 [facility] HospitalComment on above:Result Comment: [facility]???s estimated glomerular filtration rate (eG FR) will no longer include consideration of race [...] potential consequences that do not disproportionately affect anyone group of individuals. Performed By: #### [id number] ####[facility] ([facility])[address] [place], [place] [address]Bvrbfxz [Mass/Vol]92 mg/nVBewkqr99-246GxrseflmydMercy Health Clermont HospitalComment on above:Performed By: #### [id number] ####[facility] ([facility])[address] [place] [address]Hqvblexia [Moles/Vol]4.1 mmol/LNormal 3.5-5.1UnMercy Health Clermont HospitalComment on above:Performed By: #### [id number] ####[facility] ([facility])[address] [place], [place] [address]Asfinl [Moles/Vol]135 mmol/BPlt758-540MuicskhjkcMercy Health Clermont HospitalComment on above:Performed By: #### [id number] ####[facility] ([facility])[address] [place], [place] [address]Ujqg nitrogen [Mass/Vol]17 mg/dLNormal7-25UnMercy Health Clermont HospitalComment on above:Performed By: #### [id number] ####[facility] ([facility])[address] NILESUPPER ALLEGHENY HEALTH SYSTEMCompaSONDHEIMER, [place] [address]VHQA NITROGEN/CREATININE (MASS RATIO) IN SER/PLAS26.6NormalUniversTrinity Health System East CampusComment on above: Performed By: #### [id number] ####[facility] ([facility])[address] [place], [place] [address]W-DMKWGAXF PROTEINon 01-17-2025 REACTIVE PROTEIN (MG/L) IN SER/PLAS6.8 mg/LHigh<=5.0UnMercy Health Clermont HospitalComment on above:Result Comment: Testing performed using a new methodology, turbidimetry. Normal ranges have been updated. Old normal range was <8 mg/L.Performed By: #### [id number] ####[facility] ([facility])[address] [place], [place] [address]LLP WITH AUTO DIFFERENTIALon 68-70-6040Xyxtlsppe (Bld) [#/Vol]0.07 10*3/uLNormal0.00-0.20 [facility] HospitalComment on above:Performed By: #### [id number] #### [facility] ([facility]) [address] [place], [place] [address]Lzyqtthhh/100 WBC (Bld)0.9 %Normal0.0-1.0UnMercy Health Clermont HospitalComment on above:Performed By: #### [id number] #### [facility] ([facility]) [address] [place], [place] [address]Kdofuujodtj (Bld) [#/Vol]0.16 10*3/uLNormal0.00-0.50UnMercy Health Clermont HospitalComment on above:Performed By: #### [id number] #### [facility] ([facility]) [address] [place], [place] [address]Ndslpukmslr/100 WBC (Bld)2.2 %Normal0.0-6.0UnMercy Health Clermont HospitalComment on above:Performed By: #### [id number] #### [facility] ([facility]) [address] [place], [place] [address]Vevoewxbxln distribution width (RBC) [Ratio]18.4 %High11.5-15.0 [facility] HospitalComment on above:Performed By: #### [id number] #### [facility] ([facility]) [address] [place], [place] [address]KEWXBLFBMJR MEAN CORPUSCULAR HEMOGLOBIN CONCENTRATION (G/DL) BY NKJOTHKRQ15.6 g/dLLow32.0-35.0UnMercy Health Clermont HospitalComment on above:Performed By: #### [id number] #### [facility] ([facility]) [address] [place] [place], [place] [address]Aumvprqqpq (Bld) [Volume fraction]33.1 %Low36.0-45.0UnMercy Health Clermont HospitalComment on above:Performed By: #### [id number] #### [facility] ([facility]) [address] [place], [place] [address]Kxnympissk (Bld) [Mass/Vol]9.8 g/dLLow12.0-15.0UnMercy Health Clermont HospitalComment on above:Performed By: #### [id number] #### [facility] ([facility]) [address] [place], [place] [address]Sbnfvsnp granulocytes (Bld) [#/Vol]0.02 10*3/uLNormal0.00-0.20 [facility] HospitalComment on above:Performed By: #### [id number] #### [facility] ([facility]) [address] [facility]Br[address] [place], [place] [address]Hkcbpvwl granulocytes/100 WBC (Bld)0.3 %Normal0.0-1.0UnMercy Health Clermont HospitalComment on above:Performed By: #### [id number] #### [facility] ([facility]) [address]ITALBr[place] [place], [place] [address]Fxdmapxmbah (Bld) [#/Vol]1.32 10*3/uLNormal1.20-4.00UnMercy Health Clermont HospitalComment on above:Performed By: #### [id number] #### [facility] ([facility]) [address] [facility] CENTERBritton [place], [place] [address]Rmnadjmxyoq/100 WBC (Bld)17.9 %Low20.0-45.0UnMercy Health Clermont HospitalComment on above:Performed By: #### [id number] #### [facility] ([facility]) [address] [facility]ITALBr[address] [place], [place] [address]PWX (RBC) [Entitic mass]25.1 pgLow27.0-33.0UnMercy Health Clermont HospitalComment on above:Performed By: #### [id number] #### [facility] ([facility]) [address] CENTERBr[facility] [place], [place] [address]BGS (RBC) [Entitic vol]84.7 jORxjfjg11.0-98.0UnMercy Health Clermont HospitalComment on above:Performed By: #### [id number] #### [facility] ([facility]) [address] [facility]ITALBr[address] [place], [place] [address]Benvloklp (Bld) [#/Vol]0.50 10*3/uLNormal0.10-1.00UnMercy Health Clermont HospitalComment on above:Performed By: #### [id number] #### [facility] ([facility]) [address] [place] [address]Eeiifilcz/100 WBC (Bld)6.8 %Normal5.0-12.0UnMercy Health Clermont HospitalComment on above:Performed By: #### [id number] #### [facility] ([facility]) [address] [place] [address]Jwuqbehjmpj (Bld) [#/Vol]5.32 10*3/uLNormal1.60-7.60UnMercy Health Clermont HospitalComment on above:Performed By: #### [id number] #### [facility] ([facility]) [address] [place] [address]Lneregcqvqn/100 WBC (Bld)71.9 %Ccrtaz60.0-72.0UnMercy Health Clermont HospitalComment on above:Performed By: #### [id number] #### [facility] ([facility]) [address] [place] [address]RZOW (PER 100 WBCS) BY AUTOMATED COUNT0.0 %Zzkfvl2QjmwtwguhpMercy Health Clermont HospitalComment on above:Performed By: #### [id number] #### [facility] ([facility]) [address] [place] [address]UCKCYAFYD (10*3/UL) IN BLOOD AUTOMATED [id number] 10*3/uLNormal 150-400UnMercy Health Clermont HospitalComment on above:Performed By: #### [id number] #### [facility] ([facility]) [address] [place] [address]PVB (Bld) [#/Vol]3.91 10*6/uLNormal3.80-5.00UnMercy Health Clermont HospitalComment on above:Performed By: #### [id number] #### [facility] [address] [place] [address]OPO (Bld) [#/Vol]7.39 10*3/uLNormal4.00-10.60[facility] HospitalComment on above:Performed By: #### [id number] #### [facility] (PATRIC[facility]) [address] [place], [place] [address]Pmwmkv Visiton 02-62-0110Nbjtke-up [id number] Breann Starks 1945 F Date Provider Department Center 01/17/2025 JAIR BOLAND [facility] INF Carol Ann Heal Family History Adopted: Yes Family history unknown: Yes Family Status - Relation Status Age at Mother Father Level of Service:92112 DC OFFICE/OUTPATIENT NEW HIGH MDM 60 MINUTES Reason for Visit and Comments: New Patient [632]NormalCleveland Clinic Hillcrest HospitalOrders Onlyon 31-63-4643Obhhkz [id number] Breann Starks 1945 F Provider Department Center 01/17/2025 MEHREEN BRAY [facility] DERM Carol Ann Heal Family History Adopted: Yes Family history unknown: Yes Family Status - Relation Status Age at Mother Father DeceasedNormalUniKindred Healthcare36on [id number] patient to take 25mg of spirolactone. Patient advised she has 50mg tablet and will cut them in 1/2 until they are gone, then she will call for a new script.[facility] HospitalTelephoneon 01-07-2025 [id number] Breann Starks 1945 F Date Provider Department Center 01/07/2025 KARINA FRIEDMAN [facility] INF Carol Ann Heal Family History Adopted: Yes Family history unknown: Yes Family Status - Relation Status Age at Mother Father DeceasedNormalUniKindred HealthcareTephone 01-04-2025 [id number] Breann Starks 1945 Date Provider Department Center 01/04/2025 JOSEPH DAWSON AMISH Ramírez [facility] Family History Adopted: Yes Family history unknown: Yes Family Status - Relation Status Age at Mother Father DeceasedNormalUniKindred HealthcareUS axillaon 87-71-4205XJ [facility] [place] [address] [place] [address] Ultrasound Report Signed Patient: Breann Starks MR#: [id number] 171 : 1945 Acct:[id number] Age/Sex: 79 / F ADM Date: 01/03/25 Loc: Room: Type: [facility] RCR Attending Dr: Katharina Toledo APRN [...] Dimitrios Blanco M.D.01/03/2025 3:42 PM Dictation Location: [facility] Tech: Ghazal Wilson Transcribed By: STAR 01/03/25 1542 Dictated By: Dimitrios Blanco MD 01/03/25 1532 Signed By: 01/03/25 1542[facility] Physician GroupFollow-Upon 88-85-7887Lfulej-Up [id number] Breann Starks 1945 F Date Provider Department Center 01/01/2025 DEREK NEUMANN MP ORTHO MPORTHO Family History Adopted: Yes Family history unknown: Yes Family Status - Relation Status Age at Mother Father Level of Service:47917 DC OFFICE/OUTPATIENT ESTABLISHED LOW MDM 20 MIN (GC) Reason for Visit and Comments: Follow-up [151899] Pain [136]NormalCleveland Clinic Hillcrest HospitalOffice Visiton 12-24-2024 Follow-up [id number] Breann Starks 1945 F Date Provider Department Center 12/24/2024 [address]-SRHXEDKOLTON COPPOLA Family History Adopted: Yes Family history unknown: Yes Family Status - Relation Status Age at Mother Father Level of Service:47859 DC OFFICE/OUTPATIENT ESTABLISHED MOD MDM 30 MIN Reason for Visit and Comments: Coronary Artery Disease [187] Hypertension [966914] Congestive Heart Failure [127] Hyperlipidemia [182] 3 month follow up [Other][facility] HospitalALL BASIC METABOLIC PANELon 14-70-3585Ewuzm gap [Moles/Vol]11.7 mmol/LNOMS Healthcare Calcium [Mass/Vol]9.1 mg/dL8.5 - 10.1 mg/dLNOLA HealthcareChloride [Moles/Vol] 100 mmol/L98 - 107 mmol/LNOMS HealthcareCO2 [Moles/Vol]27.4 mmol/L21.0 - 32.0 mmol/LNOMS HealthcareCreatinine [Mass/Vol]0.98 mg/dL0.55 - 1.02 mg/dLNOLA HealthcareGFR/1.73 sq M.predicted CKD-EPI (S/P/Bld) [Vol rate/Area]>60>=60 mL/min/1.73m 2NOMS HealthcareGlucose [Mass/Vol]114 mg/lVIebn86 - 106 mg/dLNOLA HealthcareInterpretation and review of laboratory resultsAbnormalNOLA Healthcare Potassium [Moles/Vol]4.1 mmol/L3.5 - 5.1 mmol/LNOMS HealthcareSodium [Moles/Vol] 135 mmol/JPgq991 - 145 mmol/LNOMS HealthcareTBH EGFR-NON AF MZKGZKHV00Znr>=60 mL/min/1.73m 2NOMS HealthcareUrea nitrogen [Mass/Vol]22 mg/dLHigh7.0 - 18.0 mg/dLNOMS HealthcareUrea nitrogen/Creatinine [Mass ratio]22.4 mg/mgNOMS HealthcareCLINISYNCNOMS HealthcareC-REACTIVE PROTEINon 11-27-2024 REACTIVE PROTEIN (MG/L) IN SER/PLAS9.6 mg/LHigh<=5.0UnMercy Health Clermont Hospital Comment on above:Result Comment: Testing performed using a new methodology, turbidimetry. Normal ranges have been updated. Old normal range was <8 mg/L. Performed By: #### [id number] #### [facility] ([facility]) [address] [place], [place] [address]GQF WITH AUTO DIFFERENTIALon 47-61-2323Sjpbuwbwx (Bld) [#/Vol] 0.07 10*3/uLNormal0.00-0.20UnMercy Health Clermont HospitalComment on above: Performed By: #### [id number] #### [facility] ([facility]) [address] [place], [place] [address]Cewooziml/100 WBC (Bld)0.7 %Normal0.0-1.0UnMercy Health Clermont HospitalComment on above:Performed By: #### [id number] #### [facility] ([facility]) [address] [place], [place] [address]Gidinyzwsbl (Bld) [#/Vol]0.13 10*3/uLNormal0.00-0.50UnMercy Health Clermont HospitalComment on above:Performed By: #### [id number] #### [facility] ([facility]) [address] [place], [place] [address]Qpfmllrkjkq/100 WBC (Bld)1.2 %Normal0.0-6.0UnMercy Health Clermont HospitalComment on above:Performed By: #### [id number] #### [facility] ([facility]) [address] [place], [place] [address]Cupwjmjndgw distribution width (RBC) [Ratio]17.0 %High11.5-15.0 [facility] HospitalComment on above:Performed By: #### [id number] #### [facility] ([facility]) [address] [place] [address]UDZKUMXOLAB MEAN CORPUSCULAR HEMOGLOBIN CONCENTRATION (G/DL) BY KQOSEJOJH60.8 g/dLLow32.0-35.0UnMercy Health Clermont HospitalComment on above:Performed By: #### [id number] #### [facility] ([facility]) [address] [place] [address]Euzwqtuoqm (Bld) [Volume fraction]38.6 %Pvyzhk49.0-45.0 [facility] HospitalComment on above:Performed By: #### [id number] #### [facility] ([facility]) [address] [place], [place] [address]Nczhygpiyi (Bld) [Mass/Vol]11.9 g/dLLow12.0-15.0UnMercy Health Clermont HospitalComment on above:Performed By: #### [id number] #### [facility] ([facility]) [address] [place], [place] [address]Yxwrtuyo granulocytes (Bld) [#/Vol]0.15 10*3/uLNormal0.00-0.20 [facility] HospitalComment on above:Performed By: #### [id number] #### [facility] ([facility]) [address] [place], [place] [address]Weirfciy granulocytes/100 WBC (Bld)1.4 %High0.0-1.0UnMercy Health Clermont HospitalComment on above:Performed By: #### [id number] #### [facility] ([facility] [address] [place], [place] [address]Hjwjvvamfhs (Bld) [#/Vol]2.18 10*3/uLNormal1.20-4.00UnMercy Health Clermont HospitalComment on above:Performed By: #### [id number] #### [facility] (BEAKER) [address] [place] [address]Bglvbilgsjy/100 WBC (Bld)20.4 %Sxexqa63.0-45.0UnMercy Health Clermont HospitalComment on above:Performed By: #### [id number] #### [facility] ([facility]) [address] [place] [address]DGN (RBC) [Entitic mass]26.0 pgLow27.0-33.0UnMercy Health Clermont HospitalComment on above:Performed By: #### [id number] #### [facility] ([facility]) [address] [place] [address]SVW (RBC) [Entitic vol]84.5 kVKmxglz44.0-98.0UnMercy Health Clermont HospitalComment on above:Performed By: #### [id number] #### [facility] ([facility]) [address] [place] [address]Rhhqojryo (Bld) [#/Vol]0.84 10*3/uLNormal0.10-1.00UnMercy Health Clermont HospitalComment on above:Performed By: #### [id number] #### [facility] ([facility]) [address] [place] [address]Huyevjutc/100 WBC (Bld)7.9 %Normal5.0-12.0UnMercy Health Clermont HospitalComment on above:Performed By: #### [id number] #### [facility] ([facility]) [address] [place] [address]Vtbksimtnun (Bld) [#/Vol]7.33 10*3/uLNormal1.60-7.60UnMercy Health Clermont HospitalComment on above:Performed By: #### [id number] #### [facility] ([facility]) [address] [place] [address]Vmyprsnkqph/100 WBC (Bld)68.4 %Zvyrti85.0-72.0UnMercy Health Clermont HospitalComment on above:Performed By: #### [id number] #### [facility] ([facility]) [address] [place] [address]RMBU (PER 100 WBCS) BY AUTOMATED COUNT0.0 %Btytop3IlregytsxmMercy Health Clermont HospitalComment on above:Performed By: #### [id number] #### [facility] ([facility] [address] [place] [address]CEHPAVHMK (10*3/UL) IN BLOOD AUTOMATED [id number] 10*3/uLHigh 150-400UnMercy Health Clermont HospitalComment on above:Performed By: #### [id number] #### [facility] ([facility]) [address] [place] [address]HXR (Bld) [#/Vol]4.57 10*6/uLNormal3.80-5.00UnMercy Health Clermont HospitalComment on above:Performed By: #### [id number] #### [facility] ([place]) [address] [place] [address]JKN (Bld) [#/Vol]10.70 10*3/uLHigh4.00-10.60UnMercy Health Clermont HospitalComment on above:Performed By: #### [id number] #### [facility] ([facility]) [address] [place] [address]Rlvfte-Dcsb [id number]-[id number] Breann Starks 1945 F Date Provider Department Center 11/27/2024 DEREK NEUMANN MP ORTHO MPORTHO Family History Adopted: Yes Family history unknown: Yes Family Status - Relation Status Age at Mother Father Level of Service:71039 DC OFFICE/OUTPATIENT ESTABLISHED LOW MDM 20 MIN Reason for Visit and Comments: Follow-up [540153]NormalUnMercy Health Clermont HospitalLabon [id number] [id number] Breann Starks T 1945 F Date Provider Department Center 11/27/2024 2244-[facility] MP LAB RESOURCE MP DRAW Medical Pavi Family History Adopted: Yes Family history unknown: Yes Family Status - Relation Status Age at Mother Father DeceasedNormalUniversSelect Medical Specialty Hospital - Cleveland-FairhillEDIMENTATION RATEon [id number] RATE, [id number] mm/hrHigh<30[facility] HospitalComment on above:Performed By: #### [id number] ####[facility] [place] [place], [place] [address]Bufeax Onlyon [id number] Only [id number] WoBreann gardner T 1945 F Date Provider Department Center 11/19/2024 JAMES RODRIGUEZ MP ORTHO MPORTHO Family History Adopted: Yes Family history unknown: Yes Family Status - Relation Status Age at Mother Father DeceasedNormalURegency Hospital Cleveland WestOrders Onlyon 11-16-2024 Orders [id number] KevinKj gardnera T 1945 F Date Provider Department Center 11/16/2024 [id number]-UYVLHKVCFQKQIVAN LEIGH ORTHO MPORTHO Family History Adopted: Yes Family history unknown: Yes Family Status - Relation Status Age at Mother Father DeceasedNormalURegency [facility]36on 19-56-331610Mngdqld was informed and she is going to [facility]36[facility] Called and states they do not have a radiologist to do the aspiration for the order sent over by Dr. Holt and patient will have to go somewhere else.NormalCleveland Clinic Hillcrest HospitalBODY FLUID CULTUREon 04-57-6305Mnexqwew identified Cx Nom (Unsp spec)STREPTOCOCCUS SANGUINISAbnAdena Regional Medical CenterComment on above:Result Comment: Isolated from Broth Culture Streptococcus sanguinis Presumptive IdentificationPerformed By: #### [id number] ####[facility] (BEAKER)[address] [place], [place] [address]GJBZ STAIN RESULTNormalURegency Hospital [facility] WestComment on above:Result Comment: Many Polymorphonuclear leukocytes No organisms seenPerformed By: #### [id number] ####[facility] (BEAKER)[address] [place], [place] [address]Cosilb Visiton 20-50-6730Hfbfjj-up [id number] Breann Starks T 1945 F Date Provider Department Center 11/13/2024 DEREK NEUMANN MP ORTHO MPORTHO Family History Adopted: Yes Family history unknown: Yes Family Status - Relation Status Age at Mother Father Level of Service:15152 DC OFFICE/OUTPATIENT NEW LOW MDM 30 MINUTES (25,GC) Reason for Visit and Comments: Pain [136][facility] HospitalOrders Onlyon 11-13-2024 Orders [id number] Breann Starks 1945 F Date Provider Department Center 11/13/2024 97230-IRNDHWWQQMARIELOS IVERSON MP ORTHO MPORTHO Family History Adopted: Yes Family history unknown: Yes Family Status - Relation Status Age at Mother Father DeceasedNormalUniversity [facility]36on 18-03-652041Qwurcpo was scheduleNormalUniversavita health system [facility]36Patient needs an appt layla poss infection per dr cardenas. 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 to dr holt.[facility] HospitalAnisocytosis LM Ql (Bld)Ordered By: Sakina Cardenas on 10-24-2024 Anisocytosis Ql (Bld)Anisocytosis [Presence] in Blood by Light microscopy [facility] Orthopedic CenterBasophils Auto (Bld) [#/Vol]Ordered By: Sakina Cardenas on 28-63-1702Dzceyolzn (Bld) [#/Vol]Automated basophil countCrystal Clinic Orthopedic CenterBasophils/100 WBC Auto (Bld)Ordered By: Sakina Cardenas on 63-68-6267Cwaohieol/100 WBC (Bld)Automated basophil %[facility] Orthopedic CenterBasophils/100 WBC Manual cnt (Bld)Ordered By: Sakina Cardenas on 87-26-2003Acdkxalkh/100 WBC (Bld)Basophils/100 leukocytes in Blood by Manual count0-2FSumma Health Akron CampusC reactive protein [Mass/volume] in Serum or PlasmaOrdered By: Sakina Cardenas on 68-57-9972AZP [Mass/Vol]C reactive protein [Mass/volume] in Serum or PlasmaHigh0.0-0.5FSumma Health Akron CampusC-Reactive Proteinon 28-74-9413O-Reactive Protein1.4 mg/dLHigh0.0-0.5The Critical Access Hospital Physician GroupComment on above:Result Comment: PERFORMED BY: [place] [address] PATHOLOGIST INFORMATION OPERATOR KATHLEEN RAMOS M.D.Performed By: #### CRP #### [place] [address] USACRP [Mass/Vol]on 61-68-1120Z-REACTIVE PROTEIN1.4 mg/dLHigh 0.0 - 0.5 mg/dLNOLA HealthcareInterpretation and review of laboratory results AbnormalNOMS HealthcareNOMS HealthcareDiff and CBCon 77-10-2725Xtvthlbfglzf Ql (Bld)SlightNormalThe Critical Access Hospital Physician GroupComment on above:Performed By: #### DIFF CBC, ESR #### [place] [address] USABasophils/100 WBC (Bld)2 %Normal0-2The [facility] Physician [facility] SystemComment on above:Performed By: #### DIFF CBC, ESR #### [place] [address] USAErythrocyte distribution width (RBC) [Ratio]23.9 %High 11.9-15.3The Critical Access Hospital Physician GroupComment on above:Performed By: #### DIFF CBC, ESR #### [place] [address] USAGiant Platelet Tally1 /100{WBC}NormalThe Critical Access Hospital Physician [facility] Health SystemComment on above:Performed By: #### DIFF CBC, ESR #### [place] [address] USAHematocrit (Bld) [Volume fraction]35.1 %Ytautp37.0-46.4The Critical Access Hospital Physician GroupComment on above:Performed By: #### DIFF CBC, ESR #### [place] [address] USAHemoglobin (Bld) [Mass/Vol]11.4 g/dLLow11.8-15.4The Critical Access Hospital Physician GroupComment on above:Performed By: #### DIFF CBC, ESR #### [place] [address] USAHypochromasiaSlightNormSouth Florida Baptist Hospital Physician Group Comment on above:Performed By: #### DIFF CBC, ESR #### [place] [address] USALymphocytes/100 WBC (Bld)19 %Moqavv56-41Kod [facility] Access Hospital Physician GroupComment on above:Performed By: #### DIFF CBC, ESR #### [place] [address] USAMCH (RBC) [Entitic mass]26.9 wmKrveaa79.7-34.3The Critical Access Hospital Physician GroupComment on above:Performed By: #### DIFF CBC, ESR #### [place] [address] USAMCV (RBC) [Entitic vol]83.2 vYVwzkay17-990Jlh Critical Access Hospital Physician GroupComment on above:Performed By: #### DIFF CBC, ESR #### [place] [address] USAMean Corpuscular HGB Conc32.4 g/fURzapoi81.0-35.0The Critical Access Hospital Physician GroupComment on above:Performed By: #### DIFF CBC, ESR #### [place] [address] USAMonocytes/100 WBC (Bld)6 %Normal2-11The Critical Access Hospital Physician GroupComment on above:Performed By: #### DIFF CBC, ESR #### [place] [address] USAPlatelet EstimateNormalNormalNormSouth Florida Baptist Hospital Physician GroupComment on above:Performed By: #### DIFF CBC, ESR #### [place] [address] USAPlatelet mean volume (Bld) [Entitic vol]7.0 fLNormal 6.3-10.7The Critical Access Hospital Physician GroupComment on above:Performed By: #### DIFF CBC, ESR #### [place] [address] USAPlatelet MorphologyNormalNormalNormSouth Florida Baptist Hospital Physician [facility] Health SystemComment on above:Performed By: #### DIFF CBC, ESR #### [facility] [address] [place] [address] USAPlatelets (Bld) [#/Vol]403 10*3/dCRvoxpy939-858Igc [facility] Physician [facility] SystemComment on above:Performed By: #### DIFF CBC, ESR #### [facility] [address] [place] [address] USAPolychromasiaModerateNormSouth Florida Baptist Hospital Physician [facility] Comment on above:Performed By: #### DIFF CBC, ESR #### [facility] [address] [place] [address] USARBC (Bld) [#/Vol]4.21 10*6/uLNormal3.60-5.00The [facility] Physician [facility] SystemComment on above:Performed By: #### DIFF CBC, ESR #### [facility] [address] [place] [address] USARBC morphology finding Nom (Bld)NormalNormalNoAtrium Health [facility] Physician [facility] Health SystemComment on above:Performed By: #### DIFF CBC, ESR #### [facility] [address] [place] [address] USASegmented neutrophils/100 WBC (Bld)73 %Qfdt09-87Kso [facility] Physician [facility] Health SystemComment on above:Performed By: #### DIFF CBC, ESR #### [facility] [address] [place] [address] USAWBC (Bld) [#/Vol]11.0 10*3/uLNormal3.8-11.6The Critical Access Hospital Physician GroupComment on above:Performed By: #### DIFF CBC, ESR #### [facility] [address] [place] [address] USAEosinophils Auto (Bld) [#/Vol]Ordered By: Sakina Cardenas on 24-38-3071Jyofohxjqtv (Bld) [#/Vol]Automated eosinophil countCrystal Clinic Orthopedic CenterEosinophils/100 WBC Auto (Bld)Ordered By: Sakina Cardenas on 52-80-4814Emzfjjrrqhl/100 WBC (Bld)Automated eosinophil %[facility] Orthopedic CenterErythrocyte Sedimentation Rateon 35-24-8490MCL (Bld) [Velocity]104 mm/hHigh0-29The Critical Access Hospital Physician GroupComment on above:Result Comment: PERFORMED BY: [facility] [address] [place] [address] PATHOLOGIST INFORMATION OPERATOR KATHLEEN RAMOS M.D.Performed By: #### DIFF CBC, ESR ####[facility] [place] [address] [facility]AL HEALTH SERVICESErythrocyte distribution width Auto (RBC) [Ratio]Ordered By: Sakina Cardenas on 10-24-2024 Erythrocyte distribution width (RBC) [Ratio]Erythrocyte distribution width [Ratio] by Automated tntufRyub67.9-15.3FSumma Health Akron Campus Erythrocyte morphology finding [Identifier] in BloodOrdered By: Sakina Cardenas on 14-68-4889IZS morphology finding Nom (Bld)RBC morphologyNormalCrystal Clinic Orthopedic CenterErythrocyte sedimentation rate by Photometric method Ordered By: Sakina Cardenas on 93-63-8843IZG Photometric method (Bld) [Velocity] Erythrocyte sedimentation rate by Photometric methodHigh0-29C[facility] Clinic Orthopedic CenterGiant platelets/100 leukocytes [Ratio] in Blood by Manual count Ordered By: Sakina Cardenas on 97-18-6816Tbrnt platelets/100 WBC Manual cnt (Bld) [Ratio]Giant platelets/100 leukocytes [Ratio] in Blood by Manual count [facility] Orthopedic CenterHematocrit Auto (Bld) [Volume fraction]Ordered By: Sakina Cardenas on 69-94-7545Guxpoursqf (Bld) [Volume fraction]Hematocrit [Volume Fraction] of Blood by Automated count34.0-46.4FSumma Health Akron CampusHemoglobin [Mass/volume] in BloodOrdered By: Sakina Cardenas on 10-24-2024 Hemoglobin (Bld) [Mass/Vol]Hemoglobin [Mass/volume] in TzdccYrn54.8-15.4 [facility]opedic CenterHypochromia LM Ql (Bld)Ordered By: Sakina Cardenas on 72-22-0443Abzicqfeyif Ql (Bld)Hypochromia [Presence] in Blood by Light microscopyCrystal Clinic Orthopedic CenterLaboratory - Hematology and Cell countson 13-26-9727Npfrgyoigwk distribution width (RBC) [Ratio]23.9 %High 11.9 - 15.3 %Carondelet HealthESR (Bld) [Velocity]104 mm/hHigh0 - 29[facility] HealthcareHematocrit (Bld) [Volume fraction]35.1 %34.0 - 46.4 %[facility] Hemoglobin (Bld) [Mass/Vol]11.4 g/dLLow11.8 - 15.4 g/dLUniversity of Missouri Health CareH (RBC) [Entitic mass]26.9 pg24.7 - 34.3 pgUniversity of Missouri Health CareHC (RBC) [Mass/Vol]32.4 g/dL 32.0 - 35.0 g/dLCarondelet HealthMCV (RBC) [Entitic vol]83.2 fL80 - 100 fLENCOMPASS HEALTH HealthcarePlatelet mean volume (Bld) [Entitic vol]7 fL6.3 - 10.7 fLENCOMPASS HEALTH HealthcarePlatelets (Bld) [#/Vol]403 10*3/uL150 - 450 10*3/uLENCOMPASS HEALTH HealthcareWBC (Bld) [#/Vol]11 10*3/uL3.8 - 11.6 10*3/uLNOMS HealthcareLaboratory - Urinalysis on 81-31-5521OUD LM.HPF (Urine sed) [#/Area]4.21 10*6/uL3.60 - 5.00 10*6/uLNOMS HealthcareWBC LM.HPF (Urine sed) [#/Area]11 10*3/uL3.8 - 11.6 10*3/uLNOLA HealthcareLeukocytes [#/volume] corrected for nucleated erythrocytes in Blood by Automated counOrdered By: Sakina Cardenas on 53-17-8315WGJ corrected for nucl RBC Auto (Bld) [#/Vol]Leukocytes [#/volume] corrected for nucleated erythrocytes in Blood by Automated coun3.8-11.6FSumma Health Akron CampusLymphocytes Auto (Bld) [#/Vol]Ordered By: Sakina Cardenas on 52-77-3316Pmzgxqkjeei (Bld) [#/Vol]Lymphocytes [#/volume] in Blood by Automated countCrystal Clinic Orthopedic CenterLymphocytes/100 WBC Auto (Bld)Ordered By: Sakina Cardenas on 49-03-9980Lcfklxfpree/100 WBC (Bld)Lymphocytes/100 leukocytes in Blood by Automated countCrystal Clinic Orthopedic CenterLymphocytes/100 WBC Manual cnt (Bld)Ordered By: Sakina Cardenas on 36-38-1702Zffdkhnhizm/100 WBC (Bld) Lymphocytes/100 leukocytes in Blood by Manual ejaur33-81VufnlkqjmCrystal Clinic Orthopedic CenterMCH Auto (RBC) [Entitic mass]Ordered By: Sakina Cardenas on 12-55-7450OUY (RBC) [Entitic mass]MCH [Entitic mass] by Automated count24.7-34.3 [facility] Orthopedic CenterMCHC Auto (RBC) [Mass/Vol]Ordered By: Sakina Cardenas on 69-89-2567EXCQ (RBC) [Mass/Vol]MCHC [Mass/volume] by Automated count 32.0-35.0C[facility] Clinic Orthopedic CenterMCV Auto (RBC) [Entitic vol]Ordered By: Sakina Cardenas on 47-00-8089IVY (RBC) [Entitic vol]MCV [Entitic volume] by Automated bpyvo96-807CmggwgatjCrystal Clinic Orthopedic CenterMonocytes Auto (Bld) [#/Vol]Ordered By: Sakina Cardenas on 73-96-0646Hniwcnzps (Bld) [#/Vol]Automated blood monocyte countCrystal Clinic Orthopedic CenterMonocytes/100 WBC Auto (Bld)Ordered By: Sakina Cardenas on 05-51-7777Oxsepxuiz/100 WBC (Bld)Automated monocyte %[facility] Orthopedic CenterMonocytes/100 WBC Manual cnt (Bld) Ordered By: Sakina Cardenas on 69-60-6600Onozqppyl/100 WBC (Bld)Monocytes/100 leukocytes in Blood by Manual count2-11[facility] Neutrophils Auto (Bld) [#/Vol]Ordered By: Sakina Cardenas on 10-24-2024 Neutrophils (Bld) [#/Vol]Neutrophils [#/volume] in Blood by Automated count [facility]opedic CenterNeutrophils/100 WBC Auto (Bld)Ordered By: Sakina Cardenas on 90-53-0528Mufuoixruhy/100 WBC (Bld)Automated neutrophil % [facility]opedic CenterNo Panel Informationon 53-51-9435Hkjpjkrjekqjfp and review of laboratory resultsAbCorewell Health Reed City Hospital HealthcareNucleated erythrocytes [Presence] in Blood by Automated countOrdered By: Sakina Cardenas on 49-28-4783Xnsmpdnot RBC Auto Ql (Bld)Nucleated erythrocytes [Presence] in Blood by Automated countCrystal Clinic Orthopedic CenterPlatelet adequacy [Presence] in Blood by Light microscopyOrdered By: Sakina Cardenas on 10-24-2024 Platelets LM Ql (Bld)Platelet adequacy [Presence] in Blood by Light microscopy NormalCrystal Clinic Orthopedic CenterPlatelet mean volume Auto (Bld) [Entitic vol]Ordered By: Sakina Cardenas on 24-80-4274Iypioqli mean volume (Bld) [Entitic vol]Platelet mean volume [Entitic volume] in Blood by Automated count6.3-10.7 [facility]opedic CenterPlatelet morphology finding [Identifier] in BloodOrdered By: Sakina Cardenas on 44-67-6928Qhkqufnh morphology finding Nom (Bld)Platelet morphology finding [Identifier] in BloodNormalCrystal Clinic Orthopedic CenterPlatelets Auto (Bld) [#/Vol]Ordered By: Sakina Cardenas on 22-27-8885Jowglulhr (Bld) [#/Vol]Platelets [#/volume] in Blood by Automated -184ZrnnvnmywCrystal Clinic Orthopedic CenterPolychromasia [Presence] in Blood by Light microscopyOrdered By: Sakina Cardenas on 42-97-6330Xffhagzlstssh LM Ql (Bld)Polychromasia [Presence] in Blood by Light microscopyCrystal Clinic Orthopedic CenterRBC Auto (Bld) [#/Vol]Ordered By: Sakina Cardenas on 62-94-9304YYZ (Bld) [#/Vol]Erythrocytes [#/volume] in Blood by Automated count3.60-5.00 [facility] Hospitalegmented neutrophils/100 WBC Manual cnt (Bld) Ordered By: Sakina Cardenas on 49-01-2221Ccdhqiwlt neutrophils/100 WBC (Bld) Manual blood segmented neutrophils/100 dndcjvmdimRlmq66-23MzivllwkiCrystal Clinic Orthopedic CenterWBC Auto (Bld) [#/Vol]Ordered By: Sakina Cardenas on 88-41-8684CUO (Bld) [#/Vol]Leukocytes [#/volume] in Blood by Automated count3.8-11.6FSumma Health Akron CampusMM diagnostic mammo BI w/CADon 39-72-8709GM diagnostic mammo BI [facility]WOOST[facility] Main [place] [address] [place] [address] Ultrasound Report Signed Patient: Breann Starks MR#: [id number] : 1945 Acct:[id number] Age/Sex: 78 / F ADM Date: 10/16/24 Loc: [facility] Room: Type: [facility] Attending Dr: Dmitriy Duque DO Ordering Provider: Dmitriy Duque DO Date of Service: 10/16/24 US/US axilla: R92.8 ([id number]) MM/MM diagnostic mammo BI w/CAD: ENLARGED LT [...] Benton Jr., D.OMeena10/16/2024 2:20 PM Dictation Location: [facility] Tech: Ghazal WilsonKe Kadi Barber Transcribed By: STAR 10/16/24 1420 Dictated By: Francisco J Benton Jr, DO 10/16/24 1343 Signed By: 10/16/24 1420[facility] Physician Trptm24ka 97-18-721773Haycxqvwc labs (from 10/03/24) and echo (from 10/09/2024): [...] BMP in 1 week. Order faxed to [facility] and printed for patient to bean picker at front office spec. She verbalized understanding.[facility] HospitalCA ECHO DOPPLER COMPLETEon 64-94-7621[place]ad[place] [address] Cardiology Report Signed Patient: BREANN STARKS MR#: [id number] : 1945 Acct:[id number] Age/Sex: 78 / F ADM Date: 10/09/24 Loc: CARD Attending Dr: Kolton Altman M.D. Ordering Physician: Kolton Altman M.D. Date of Service: 10/09/24 Procedure(s): CA echo doppler complete Accession Number(s): [id number] cc: RENNY HANSEN ; Kolton Altman M.D. Patient Name: BREANN STARKS MR#: [id number] : 1945 Exam Date: 10/09/2024 Ordering Doctor: [...] Area (VTI): 1.49 cm2, 1.49 cm2 Deceleration Magoffin: 1.68 m/s2 Pressure Half-Time: 622.32 ms Peak [...] Dictated by: Sakina Evans (more content not included)...TBHRadiology, Radiologist, - 10/09/[address] [address] Cardiology Report Signed Patient: BREANN STARKS MR#: [id number] : 1945 Acct:[id number] Age/Sex: 78 / F ADM Date: 10/09/24 Loc: CARD Attending Dr: Kolton Altman M.D. Ordering Physician: Kolton Altman M.D. Date of Service: 10/09/24 Procedure(s): CA echo doppler complete Accession Number(s): [id number] cc: RENNY HANSEN ; Kolton Altman M.D. Patient Name: BREANN STARKS MR#: [id number] : 1945 Exam Date: 10/09/2024 Ordering Doctor: [...] Area (VTI): 1.49 cm2, 1.49 cm2 Deceleration Magoffin: 1.68 m/s2 Pressure Half-Time: 622.32 ms Peak [...] SALAZAR Signed By: 10/09/241846 DD/ 44 TD/TT: Credit Card Specialist: CANDIDO HealthcareRadiology Study observation (narrative)Carondelet HealthCA ECHO DOPPLER COMPLETEOrdered By: Radiologist Radiology on 76-35-2546AILY Healthcare Work Phone: aLL BASIC METABOLIC PANELon 60-71-0784Mfiea gap [Moles/Vol]12.4 mmol/LNOMS HealthcareCalcium [Mass/Vol]9.2 mg/dL8.5 - 10.1 mg/dL NOM HealthcareChloride [Moles/Vol]104 mmol/L98 - 107 mmol/LNOMS HealthcareCO2 [Moles/Vol]27.8 mmol/L21.0 - 32.0 mmol/LNOMS HealthcareCreatinine [Mass/Vol]0.73 mg/dL0.55 - 1.02 mg/dLNOLA HealthcareGFR/1.73 sq M.predicted CKD-EPI (S/P/Bld) [Vol rate/Area]>60>=60 mL/min/1.73m 2NOMS HealthcareGlucose [Mass/Vol]97 mg/dL74 - 106 mg/dLNOLA HealthcarePotassium [Moles/Vol]4.2 mmol/L3.5 - 5.1 mmol/LNOMS HealthcareSodium [Moles/Vol]140 mmol/L136 - 145 mmol/LNOMS HealthcareTBH EGFR- NON AF PANAMANIAN>60>=60 mL/min/1.73m 2NOMS HealthcareUrea nitrogen [Mass/Vol]16 mg/dL7.0 - 18.0 mg/dLNOLA HealthcareUrea nitrogen/Creatinine [Mass ratio]21.9 mg/mgNOLA HealthcareALL LIPID PROFILE (FASTING)on 92-97-0176ZKVV HDL RATIO2.2 [facility] HealthcareComment on above:3.3 - 4.4 LOW RISK 4.4 - 7.1 AVERAGE RISK 7.1 - 11.0 MODERATE RISK >11.0 HIGH RISK Cholesterol [Mass/Vol]130 mg/dLNINF - 200 mg/dLNOLA HealthcareCholesterol in HDL [Mass/Vol]59 mg/dL40 - 60 mg/dLNOLA HealthcareComment on above:> or =60 mg/dl - LOW CARDIOVASCULAR RISK <40 mg/dl - HIGH CARDIOVASCULAR RISK Magnesium [Mass/Vol]56.8 mg/dLENCOMPASS HEALTH HealthcareComment on above:<100 mg/dl OPTIMAL 100-129 mg/dl NEAR OR ABOVE OPTIMAL 130-159 mg/dl BORDERLINE HIGH 160-189 mg/dl HIGH >190 mg/dl VERY HIGH Magnesium [Mass/Vol]14.2 mg/dLENCOMPASS HEALTH HealthcareTriglyceride [Mass/Vol]71 mg/dLNINF - 150 mg/dLENCOMPASS HEALTH HealthcareNo Panel Informationon 23-31-7054KDZBGNDJJJUPJ HealthcareAnisocytosis LM Ql (Bld)Ordered By: Katharina Toledo on 10-02-2024 Anisocytosis Ql (Bld)Anisocytosis [Presence] in Blood by Light microscopy [facility] Orthopedic CenterAnisocytosis [Presence] in Blood by Light microscopyOrdered By: Katharina Toledo on 49-31-1663Aqoomgvtdfyu Ql (Bld)Marked NormalCrystal Clinic Orthopedic CenterComment on above:Performed By: #### SCAN CBC, FE and TIBC, ARISTIDES #### [facility] [address] [place] [id number] USABasophils Auto (Bld) [#/Vol]Ordered By: Katharina Toledo on 08-39-5254Hboexzlas (Bld) [#/Vol]Automated basophil count0.0-0.2FSumma Health Akron CampusBasophils [#/volume] in Blood by Automated countOrdered By: Katharina Toledo on 19-29-7324Fxbjgfeui (Bld) [#/Vol]0.1 10*3/uLNormal0.0-0.2 [facility]opedic CenterComment on above:Performed By: #### SCAN CBC, FE and TIBC, ARISTIDES #### [facility] [address] [place] [address] USABasophils/100 WBC Auto (Bld)Ordered By: Katharina Toledo on 27-10-5108Aiegdekzq/100 WBC (Bld)Automated basophil %.[facility] Orthopedic CenterBasophils/100 leukocytes in Blood by Automated countOrdered By: Katharina Toledo on 12-68-9523Jlkoqpkqo/100 WBC (Bld)0.8 %Normal.[facility]opedic CenterComment on above:Performed By: #### SCAN CBC, FE and TIBC, ARISTIDES #### [facility] [address] [place] [id number] USACT shoulder LT w conon 08-78-9779AR shoulder LT w con [facility] Main [place] [address] [place] [address] CT Scan Report Signed Patient: Breann Starks MR#: [id number] : 1945 Acct:[id number] Age/Sex: 78 / F ADM Date: 10/02/24 Loc: Room: Type: [facility] RCR Attending Dr: Katharina Toledo APRN Copies [...] Etienne Rhodes M.D.10/02/2024 4:14 PM Dictation Location: [place] [address] Transcribed By: [facility] 10/02/241613 Dictated By: Etienne Rhodes DO 10/02/24 161 Signed By: 10/02/24 1614[facility] Physician GroupCreatinine (Bld) [Mass/Vol] Ordered By: Katharina Toledo on 80-00-1840Owhbgtvlew [Mass/Vol]Whole blood creatinine measurement0.6-1.3FSumma Health Akron CampusComment on above: ER/ESD physician is notified/shown all ISTAT results.Critical values may be confirmed by laboratorytesting ifdeemed necessary by ER attending doctor. Eosinophils Auto (Bld) [#/Vol]Ordered By: Katharina Jaegerbrandy on 31-11-3754Ctiduycsowx (Bld) [#/Vol]Automated eosinophil count0.0-0.45[facility] Orthopedic CenterEosinophils [#/volume] in Blood by Automated countOrdered By: Katharina Jaegerbrandy on 71-45-1198Fyvroqkcpao (Bld) [#/Vol]0.2 10*3/uLNormal0.0-0.45 [facility]opedic CenterComment on above:Performed By: #### SCAN CBC, FE and TIBC, ARISTIDES #### [facility] [address] [place] [address] USAEosinophils/100 WBC Auto (Bld)Ordered By: Katharina Tre on 53-94-9154Qyszmfxkjcs/100 WBC (Bld)Automated eosinophil %.[facility] Orthopedic CenterEosinophils/100 leukocytes in Blood by Automated countOrdered By: Katharina Jaegerbrandy on 32-96-5820Koncmxqxzkp/100 WBC (Bld)2.3 %Normal.[facility]opedic CenterComment on above:Performed By: #### SCAN CBC, FE and TIBC, ARISTIDES #### [facility] [address] [place], [place] [address] USAErythrocyte distribution width Auto (RBC) [Ratio]Ordered By: Katharina Tre on 15-35-4029Qncphrqnebb distribution width (RBC) [Ratio] Erythrocyte distribution width [Ratio] by Automated dvutsJuuq02.9-15.3FSumma Health Akron CampusErythrocyte distribution width [Ratio] by Automated count Ordered By: Katharina Tre on 93-87-2094Jrtxqkizsgw distribution width (RBC) [Ratio]29.3 %High11.9-15.3FSumma Health Akron CampusComment on above: Performed By: #### SCAN CBC, FE and TIBC, ARISTIDES #### [place] [id number] USAErythrocyte morphology finding [Identifier] in Blood Ordered By: Katharina Toledo on 69-53-5463ROS morphology finding Nom (Bld)RBC morphologyHarrison Community Hospital morphology finding Nom (Bld)N/A [facility]opedic CenterErythrocytes [#/volume] in Blood by Automated countOrdered By: Katharina Toledo on 28-56-4162OVQ (Bld) [#/Vol]3.98 10*6/uLNormal 3.60-5.00[facility] Orthopedic CenterComment on above:Performed By: #### SCAN CBC, FE and TIBC, ARISTIDES #### [place] [address] USAFerritin [Mass/volume] in Serum or PlasmaOrdered By: Katharina Fernandezsebas on 57-26-7363Xmiruczj [Mass/Vol]Ferritin [Mass/volume] in Serum or Lkista07.0-306.8[facility] Orthopedic CenterFerritin [Mass/Vol]54.8 ng/mL Zznhet87.0-306.8[facility] Orthopedic CenterComment on above:Result Comment: PERFORMED BY: [place] [address] PATHOLOGIST INFORMATION OPERATOR KATHLEEN RAMOS M.D.Performed By: #### SCAN CBC, FE and TIBC, ARISTIDES #### [place] [id number] USAHematocrit Auto (Bld) [Volume fraction]Ordered By: Katharina Fernandezsebas on 28-95-0807Rffqlnrwju (Bld) [Volume fraction]Hematocrit [Volume Fraction] of Blood by Automated vidzcXyk57.0-46.4FSumma Health Akron CampusHematocrit [Volume Fraction] of Blood by Automated countOrdered By: Katharina Toledo on 04-19-2793Kclpknevhg (Bld) [Volume fraction]33.0 %Low34.0-46.4 [facility]opedic CenterComment on above:Performed By: #### SCAN CBC, FE and TIBC, ARISTIDES #### [place] [address] USAHemoglobin [Mass/volume] in BloodOrdered By: Katharina Jaegerbrandy on 16-06-9644Fqkmdyscrg (Bld) [Mass/Vol]Hemoglobin [Mass/volume] in BloodLow 11.8-15.4FSumma Health Akron CampusHemoglobin (Bld) [Mass/Vol]10.6 g/dL Low11.8-15.4FSumma Health Akron CampusComment on above:Performed By: #### SCAN CBC, FE and TIBC, ARISTIDES #### [facility] [address] [id number] USAHypochromia LM Ql (Bld)Ordered By: Katharina Tre on 20-39-8821Camfofizybf Ql (Bld)Hypochromia [Presence] in Blood by Light microscopyCrystal Clinic Orthopedic CenterHypochromia Ql (Bld)SlightCrystal Clinic Orthopedic CenterISTAT XRAY CREon 06-46-2313Idrqhxvsfh [Mass/Vol]0.7 mg/dL 0.6 - 1.3 mg/dLCarondelet HealthComment on above:ER/ESD physician is notified/shown all ISTAT results. Critical values may be confirmed by laboratory testing if deemed necessary by ER attending doctor. ISTAT GFRNOPrairie Ridge HealthISTAT XRay CREon 17-23-1925HTGNK GFR>60.0 NormalThe Critical Access Hospital Physician GroupComment on above:Result Comment: PERFORMED BY: [address] [place] [id number] PATHOLOGIST INFORMATION OPERATOR KATHLEEN RAMOS M.D.Performed By: #### ISCRE #### [facility] [address] [place] [address] USAIron [Mass/volume] in Serum or PlasmaOrdered By: Katharina Tre on 37-97-2348Ptzw [Mass/Vol]Iron [Mass/volume] in Serum or PlasmaLow 50-Crystal Clinic Orthopedic CenterIron [Mass/Vol]36 ug/aZOzp37-198HidmfstfaCrystal Clinic Orthopedic CenterComment on above:Performed By: #### SCAN CBC, FE and TIBC, ARISTIDES #### [facility] [address] [id number] USAIron and TIBC Profileon 10-02-2024% Iron Saturation8.7 % Jgo83-94Jdi Critical Access Hospital Physician GroupComment on above:Performed By: #### SCAN CBC, FE and TIBC, ARISTIDES #### [facility] [address] [id number] USATotal Iron Binding Dcugipgf247 ug/lAXnebkc410-911Pyi Critical Access Hospital Physician GroupComment on above:Performed By: #### SCAN CBC, FE and TIBC, ARISTIDES #### [facility] [address] [id number] USALeukocytes [#/volume] corrected for nucleated erythrocytes in Blood by Automated counOrdered By: Katharina Toledo on 07-41-7173IZQ corrected for nucl RBC Auto (Bld) [#/Vol]Leukocytes [#/volume] corrected for nucleated erythrocytes in Blood by Automated coun3.8-11.6FSumma Health Akron Campus WBC corrected for nucl RBC Auto (Bld) [#/Vol]8.7 10*3/uL3.8-11.6FSumma Health Akron CampusLeukocytes [#/volume] in Blood by Automated countOrdered By: Katharina Toledo on 92-16-2311RAR (Bld) [#/Vol]8.7 10*3/uLNormal3.8-11.6 [facility] Clinic Orthopedic CenterComment on above:Performed By: #### SCAN CBC, FE and TIBC, ARISTIDES #### [facility] [address] [place], [place] [address] USALymphocytes Auto (Bld) [#/Vol]Ordered By: Katharina Toledo on 67-34-2163Upnnyvqmjtf (Bld) [#/Vol]Lymphocytes [#/volume] in Blood by Automated count1.00-4.8Crystal Clinic Orthopedic CenterLymphocytes [#/volume] in Blood by Automated countOrdered By: Katharina Toledo on 64-71-4169Zxzaqktaapd (Bld) [#/Vol]1.4 10*3/uLNormal1.00-4.8C[facility] Clinic Orthopedic CenterComment on above:Performed By: #### SCAN CBC, FE and TIBC, ARISTIDES #### [facility] [address] [id number] USALymphocytes/100 WBC Auto (Bld)Ordered By: Katharina Tre on 99-34-9033Ujvakrxzhzy/100 WBC (Bld)Lymphocytes/100 leukocytes in Blood by Automated count.Crystal Clinic Orthopedic CenterLymphocytes/100 leukocytes in Blood by Automated countOrdered By: Katharina Toledo on 50-09-9940Jtlyirdcdbq/100 WBC (Bld)15.8 %Normal.[facility] Clinic Orthopedic CenterComment on above: Performed By: #### SCAN CBC, FE and TIBC, ARISTIDES #### [facility] [address] [id number] [facility] Auto (RBC) [Entitic mass]Ordered By: Katharina Toledo on 53-66-3820RMF (RBC) [Entitic mass]MCH [Entitic mass] by Automated count24.7-34.3 [facility] [Entitic mass] by Automated countOrdered By: Katharina Toledo on 32-27-5381SMU (RBC) [Entitic mass]26.6 ftVpxfed82.7-34.3 [facility] Orthopedic CenterComment on above:Performed By: #### SCAN CBC, FE and TIBC, ARISTIDES #### [facility] [address] [id number] [facility] Auto (RBC) [Mass/Vol]Ordered By: Katharina Toledo on 46-94-8678ZLBN (RBC) [Mass/Vol]MCHC [Mass/volume] by Automated count32.0-35.0 [facility] HospitalHC (RBC) [Mass/Vol]32.0 g/dL32.0-35.0 [facility] HospitalV Auto (RBC) [Entitic vol]Ordered By: Katharina Toledo on 59-38-5464KAU (RBC) [Entitic vol]MCV [Entitic volume] by Automated xdoni36-641TnaymmzfaWexner Medical Center [Entitic volume] by Automated countOrdered By: Katharina Toledo on 52-67-8695GMF (RBC) [Entitic vol]83.1 fLNormal 80-100C[facility] Clinic Orthopedic CenterComment on above:Performed By: #### SCAN CBC, FE and TIBC, ARISTIDES #### [facility] [address] [id number] USAMicrocytes LM Ql (Bld)Ordered By: Katharina Toledo on 11-31-4142Bdjqzbksmb Ql (Bld)Microcytes [Presence] in Blood by Light microscopy [facility] Orthopedic CenterMicrocytes Ql (Bld)SlightCrystal Clinic Orthopedic CenterMonocytes Auto (Bld) [#/Vol]Ordered By: Katharina Toledo on 48-43-0792Reaxookjd (Bld) [#/Vol]Automated blood monocyte count0.0-0.8C[facility] Clinic Orthopedic CenterMonocytes [#/volume] in Blood by Automated countOrdered By: Katharina Toledo on 99-09-8070Mfxyuekfd (Bld) [#/Vol]0.6 10*3/uLNormal0.0-0.8 [facility] Orthopedic CenterComment on above:Performed By: #### SCAN CBC, FE and TIBC, ARISTIDES #### [facility] [address] [place] [address] USAMonocytes/100 WBC Auto (Bld)Ordered By: Katharina Toledo on 29-13-3940Fqbrphsqi/100 WBC (Bld)Automated monocyte %.[facility] Clinic Orthopedic CenterMonocytes/100 leukocytes in Blood by Automated countOrdered By: Katharina Toledo on 66-18-7331Zbzsorwrz/100 WBC (Bld)7.3 %Normal.[facility] Clinic Orthopedic CenterComment on above:Performed By: #### SCAN CBC, FE and TIBC, ARISTIDES #### [facility] [address] [place] [address] USANeutrophils Auto (Bld) [#/Vol]Ordered By: Katharina Toledo on 08-89-7610Kxrrdeyuesv (Bld) [#/Vol]Neutrophils [#/volume] in Blood by Automated count1.8-7.7FSumma Health Akron CampusNeutrophils [#/volume] in Blood by Automated countOrdered By: Katharina Toledo on 91-73-6568Sxaixhgsuyh (Bld) [#/Vol] 6.4 10*3/uLNormal1.8-7.7FSumma Health Akron CampusComment on above: Performed By: #### SCAN CBC, FE and TIBC, ARISTIDES #### [facility] [address] [id number] USANeutrophils/100 WBC Auto (Bld)Ordered By: Katharina Tre on 66-69-6287Wvndohjhige/100 WBC (Bld)Automated neutrophil %.[facility] Clinic Orthopedic CenterNeutrophils/100 leukocytes in Blood by Automated countOrdered By: Katharina Tre on 33-04-3386Lgwpiiypjyl/100 WBC (Bld)73.8 %Normal.[facility] Clinic Orthopedic CenterComment on above:Performed By: #### SCAN CBC, FE and TIBC, ARISTIDES #### [facility] [address] [id number] USANo Panel InformationOrdered By: Katharina Toledo on 67-57-0863Fdbxrdn Estimated GFR (eGFR)> 60.0[facility] Nucleated erythrocytes [Presence] in Blood by Automated countOrdered By: Katharina Toledo on 55-91-1987Pfaiadnpi RBC Auto Ql (Bld)Nucleated erythrocytes [Presence] in Blood by Automated count0-0.5FSumma Health Akron Campus Nucleated RBC Auto Ql (Bld)0.0 /100{WBC}0-0.5FSumma Health Akron Campus Platelet adequacy [Presence] in Blood by Light microscopyOrdered By: Katharina Toledo on 07-97-4029Xuotnqzdo LM Ql (Bld)Platelet adequacy [Presence] in Blood by Light microscopyNoDelaware County HospitalPlatelets LM Ql (Bld) NormalNoDelaware County HospitalPlatelet mean volume Auto (Bld) [Entitic vol]Ordered By: Katharina Toledo on 75-33-4512Vsfwjtez mean volume (Bld) [Entitic vol]Platelet mean volume [Entitic volume] in Blood by Automated count 6.3-10.7FSumma Health Akron CampusPlatelet mean volume [Entitic volume] in Blood by Automated countOrdered By: Katharina Toledo on 58-75-9396Svnnilrb mean volume (Bld) [Entitic vol]6.9 fLNormal6.3-10.7FSumma Health Akron Campus Comment on above:Performed By: #### SCAN CBC, FE and TIBC, ARISTIDES #### [facility] [address] [place] [address] USAPlatelet morphology finding [Identifier] in BloodOrdered By: Katharina Jaegerbrandy on 70-72-5294Fswdjiqq morphology finding Nom (Bld)Platelet morphology finding [Identifier] in BloodNormProMedica Toledo Hospital Platelet morphology finding Nom (Bld)NormalNormProMedica Toledo HospitalPlatelets Auto (Bld) [#/Vol]Ordered By: Katharina Tre on 10-02-2024 Platelets (Bld) [#/Vol]Platelets [#/volume] in Blood by Automated rdjox174-176 [facility] Orthopedic CenterPlatelets [#/volume] in Blood by Automated countOrdered By: Katharina Jaegerbrandy on 17-53-9682Ggfinrsln (Bld) [#/Vol]337 10*3/uL Iiymxy384-618UmuykzmjhCrystal Clinic Orthopedic CenterComment on above:Performed By: #### SCAN CBC, FE and TIBC, ARISTIDES #### [facility] [address] [place] [address] USAPolychromasia [Presence] in Blood by Light microscopy Ordered By: Katharina Jaegerbrandy on 54-25-6145Qszvkvhsqmzkw LM Ql (Bld)Polychromasia [Presence] in Blood by Light microscopyCrystal Clinic Orthopedic Center Polychromasia LM Ql (Bld)SlightCrystal Clinic Orthopedic CenterRBC Auto (Bld) [#/Vol]Ordered By: Katharina Tre on 44-96-9186AJX (Bld) [#/Vol]Erythrocytes [#/volume] in Blood by Automated count3.60-5.00[facility] Scan and CBCon 97-52-2434WyaxciywyzegeLvanwsTlbrjuQer [facility] Comment on above:Performed By: #### SCAN CBC, FE and TIBC, ARISTIDES #### [facility] [address] [place] [address] USAMean Corpuscular HGB Conc32.0 g/xDApsmfe87.0-35.0The Critical Access Hospital Physician GroupComment on above:Performed By: #### SCAN CBC, FE and TIBC, ARISTIDES #### [place] [address] USAMicrocytosisSNovant Health Forsyth Medical Center Physician [facility] Comment on above:Performed By: #### SCAN CBC, FE and TIBC, ARISTIDES #### [place] [address] USANRBC%0.0 /100{WBC}Normal0-0.5The [facility] Physician [facility] Comment on above:Performed By: #### SCAN CBC, FE and TIBC, ARISTIDES #### [place] [address] USAPlatelet EstimateNormalNormalAdventHealth Carrollwood Physician [facility] Health SystemComment on above:Performed By: #### SCAN CBC, FE and TIBC, ARISTIDES #### [place] [address] USAPlatelet MorphologyNormalNormalNoAtrium Health [facility] Physician [facility] Health SystemComment on above:Result Comment: PERFORMED BY: [place] [address] PATHOLOGIST INFORMATION OPERATOR KATHLEEN RAMOS M.D.Performed By: #### SCAN CBC, FE and TIBC, ARISTIDES #### [place] [address] USAPolychromasiaSNovant Health Forsyth Medical Center Physician [facility] Comment on above:Performed By: #### SCAN CBC, FE and TIBC, ARISTIDES #### [place] [address] USASerum or plasma iron binding capacity measurement (mass/volume)Ordered By: Katharina Toledo on 62-38-1507Oaif binding capacity [Mass/Vol]Iron binding capacity [Mass/volume] in Serum or Abcuqu959-252Rxiuejdub[address] [place], [place] [address]Iron binding capacity [Mass/Vol]413 ug/hG496-59782 Taylor Streeterum or plasma iron saturation measurement (mass fraction)Ordered By: Katharina Toledo on 56-56-8168Ffvt saturation [Mass fraction]Iron saturation [Mass Fraction] in Serum or UvhidyOwg41-57WijhzkljcCrystal Clinic Orthopedic CenterIron saturation [Mass fraction]8.7 %Acx18-58ScxomuthjCrystal Clinic Orthopedic CenterTransferrin [Mass/volume] in Serum or PlasmaOrdered By: Katharina Toledo on 25-09-5432Quycmvlvjvz [Mass/Vol]Transferrin [Mass/volume] in Serum or Eclhxw091-127GggjpwskyCrystal Clinic Orthopedic CenterTransferrin [Mass/Vol]295 mg/zMKcxbrm491-445TpqwrmkwfCrystal Clinic Orthopedic CenterComment on above:Performed By: #### SCAN CBC, FE and TIBC, ARISTIDES #### [facility] [address] [place] [address] USAWBC Auto (Bld) [#/Vol]Ordered By: Katharina Toledo on 89-54-7664LHH (Bld) [#/Vol]Leukocytes [#/volume] in Blood by Automated count 3.8-11.6FSumma Health Akron CampusWhole blood creatinine measurement Ordered By: Katharina Toledo on 91-22-3887Vwktsfnguj [Mass/Vol]0.7 mg/dLNormal 0.6-1.3FSumma Health Akron CampusComment on above:ER/ESD physician is notified/shown all ISTAT results.Critical values may be confirmed by laboratory testing ifdeemed necessary by ER attending doctor.Result Comment: ER/ESD physician is notified/shown all ISTAT results. Critical values may be confirmed by laboratory testing if deemed necessary by ER attending doctor.Performed By: #### ISCRE #### [facility] [address] [place] [address] USAOffice Visiton 28-52-7340Jtlvnu-up [id number] Breann Starks Jonah 1945 F Date Provider Department Center 09/24/2024 [facility] Family History Adopted: Yes Family history unknown: Yes Family Status - Relation Status Age at Mother Father Level of Service:05235 DC OFFICE/OUTPATIENT ESTABLISHED MOD MDM 30 MIN Reason for Visit and Comments: Atrial Fibrillation [80] - Denies palpitations, lightheadedness/syncope, and bleeding on Eliquis. Congestive Heart Failure [127] severe pulmonary hypertension [Other] - Denies chest pain and SOB. Edema [[id number]] - NOT taking lasix currently due to no LE edema.Normal [facility] HospitalUrinalysis macro (dipstick) panel (U)on 12-69-3814Hdnhwcnek, UANegativeNegative - 4(70) +++ mg/dLNOMS HealthcareBlood, UAPositiveNegative - 50 Shadi/mcLNOMS HealthcareClarity, UACloudyNOMS Healthcare Color, UADark AmberNOMS HealthcareGlucose, UANegativeNegative - 1999(110) ++++ mg/dLNOMS HealthcareInterpretation and review of laboratory resultsAbnormalNOMS HealthcareKetones, UAPositiveNegative - 160(16) ++++ mg/dLNOMS Healthcare Leukocytes, UAModerateNegative - 500+++ Rosette/mcLNOMS HealthcareNitrite, UA NegativeNegative - PositiveNOMS HealthcarepH, UA55 - 9NOMS HealthcareProtein, UA 3+Negative - 1999(20) ++++ mg/dLNOMS HealthcareSpec Grav, UA1.31 - 1.03NOMS HealthcareUrobilinogen, UA0.20.2 - 12 mg/dLNOMS HealthcareNOMS HealthcareC reactive protein [Mass/volume] in Serum or PlasmaOrdered By: Pedro Pablo Cruz on 35-27-0996KWX [Mass/Vol]C reactive protein [Mass/volume] in Serum or PlasmaHigh 0.0-0.5FSumma Health Akron CampusC-Reactive Proteinon 61-42-2346J- Reactive Protein1.1 mg/dLHigh0.0-0.5The Critical Access Hospital Physician GroupComment on above:Result Comment: PERFORMED BY: [facility] [address] [place] [address] PATHOLOGIST INFORMATION OPERATOR KATHLEEN RAMOS M.D.Performed By: #### CRP ####[facility] [address] [place] [address] [facility] W Auto Differential panel (Bld)on 38-47-1618Ldbdghglr (Bld) [#/Vol]0.1 10*3/uL0.0 - 0.2 10*3/uLNOMS Healthcare Basophils/100 WBC Manual cnt (Syn fld)0.9 %.[facility] HealthcareEosinophils (Bld) [#/Vol]0.2 10*3/uL0.0 - 0.45 10*3/uLNOLA HealthcareEosinophils/100 WBC Manual cnt (Syn fld)2.6 %.[facility] HealthErythrocyte distribution width (RBC) [Ratio] 19.3 %High11.9 - 15.3 %[facility] HealthHematocrit (Bld) [Volume fraction]28.2 % Low34.0 - 46.4 %[facility] HealthHemoglobin (Bld) [Mass/Vol]8.6 g/dLLow11.8 - 15.4 g/dLCarondelet HealthInterpretation and review of laboratory resultsAbnormalCarondelet HealthLymphocytes (Bld) [#/Vol]2.1 10*3/uL1.00 - 4.8 10*3/uLNOLA Healthcare Lymphocytes/100 WBC Manual cnt (Syn fld)23.5 %.[facility] CareH (RBC) [Entitic mass]21.8 pgLow24.7 - 34.3 pgUniversity of Missouri Health CareHC (RBC) [Mass/Vol]30.4 g/dLLow 32.0 - 35.0 g/dLCarondelet HealthMCV (RBC) [Entitic vol]71.9 fLLow80 - 100 fLCarondelet HealthMonocytes (Bld) [#/Vol]0.6 10*3/uL0.0 - 0.8 10*3/uLNOLA Healthcare Monocytes+Macrophages/100 WBC Manual cnt (Syn fld)6.8 %.[facility] Neutrophils (Bld) [#/Vol]5.9 10*3/uL1.8 - 7.7 10*3/uLNOLA Healthcare Neutrophils/100 WBC Manual cnt (Syn fld)66.2 %.[facility] HealthNRBC0 /100{WBC}0 - 0.5 /100{WBC}[facility] HealthPlatelet mean volume (Bld) [Entitic vol]6.9 fL6.3 - 10.7 fLCarondelet HealthPlatelets (Bld) [#/Vol]345 10*3/uL150 - 450 10*3/uLCarondelet HealthRBC LM.HPF (Urine sed) [#/Area]3.93 10*6/uL3.60 - 5.00 10*6/uLNOMS HealthcareWBC (Bld) [#/Vol]8.9 10*3/uL3.8 - 11.6 10*3/uLNOMS HealthcareWBC LM.HPF (Urine sed) [#/Area]8.9 10*3/uL3.8 - 11.6 10*3/uLNOSaint John's Health System HealthcareComplete Blood Count Auto Diffon 10-74-8779Pejyasbzl (Bld) [#/Vol]0.1 10*3/uLNormal0.0-0.2The Critical Access Hospital Physician GroupComment on above:Result Comment: PERFORMED BY: [place] [address] PATHOLOGIST INFORMATION OPERATOR KATHLEEN RAMOS M.D.Performed By: #### CBC, FE and TIBC, ARISTIDES, [id number] ####[place] [address] [place] Basophils/100 WBC (Bld)0.9 %Normal.The Critical Access Hospital Physician GroupComment on above:Performed By: #### CBC, FE and TIBC, ARISTIDES, [id number] ####[place] [address] USAEosinophils (Bld) [#/Vol]0.2 10*3/uLNormal0.0-0.45The Critical Access Hospital Physician GroupComment on above:Performed By: #### CBC, FE and TIBC, ARISTIDES, [id number] ####[place] [address] USAEosinophils/100 WBC (Bld)2.6 %Normal.The Critical Access Hospital Physician GroupComment on above:Performed By: #### CBC, FE and TIBC, ARISTIDES, [id number] ####[place] [address] USAErythrocyte distribution width (RBC) [Ratio]19.3 %High11.9-15.3The Critical Access Hospital Physician GroupComment on above:Performed By: #### CBC, FE and TIBC, ARISTIDES, [id number] ####[place] [address] USAHematocrit (Bld) [Volume fraction]28.2 %Low34.0-46.4The Critical Access Hospital Physician GroupComment on above:Performed By: #### CBC, FE and TIBC, ARISTIDES, [id number] ####[place] [address] USAHemoglobin (Bld) [Mass/Vol]8.6 g/dLLow11.8-15.4The [facility] Physician Group Comment on above:Performed By: #### CBC, FE and TIBC, ARISTIDES, [id number] ####[place] [address] [place] Lymphocytes (Bld) [#/Vol]2.1 10*3/uLNormal1.00-4.8The [facility] Physician Group Comment on above:Performed By: #### CBC, FE and TIBC, ARISTIDES, [id number] ####[place] [address] [place] Lymphocytes/100 WBC (Bld)23.5 %Normal.The Critical Access Hospital Physician GroupComment on above:Performed By: #### CBC, FE and TIBC, ARISTIDES, [id number] ####[address]H (RBC) [Entitic mass]21.8 pgLow24.7-34.3The Critical Access Hospital Physician GroupComment on above:Performed By: #### CBC, FE and TIBC, ARISTIDES, [id number] ####[address]MCV (RBC) [Entitic vol]71.9 qGUpy22-138Tak Critical Access Hospital Physician GroupComment on above:Performed By: #### CBC, FE and TIBC, ARISTIDES, [id number] ####[place] [address] USAMean Corpuscular HGB Conc30.4 g/dLLow32.0-35.0The [facility] Physician Group Comment on above:Performed By: #### CBC, FE and TIBC, ARISTIDES, [id number] ####[address] Monocytes (Bld) [#/Vol]0.6 10*3/uLNormal0.0-0.8The [facility] Physician Group Comment on above:Performed By: #### CBC, FE and TIBC, ARISTIDES, [id number] ####[place] [address] [place] Monocytes/100 WBC (Bld)6.8 %Normal.The Critical Access Hospital Physician GroupComment on above:Performed By: #### CBC, FE and TIBC, ARISTIDES, [id number] ####[place] [address] USANeutrophils (Bld) [#/Vol]5.9 10*3/uLNormal1.8-7.7The Critical Access Hospital Physician GroupComment on above:Performed By: #### CBC, FE and TIBC, ARISTIDES, [id number] ####[place] [address] USANeutrophils/100 WBC (Bld)66.2 %Normal.The Critical Access Hospital Physician GroupComment on above:Performed By: #### CBC, FE and TIBC, ARISTIDES, [id number] ####[place] [address] USANRBC%0.0 /100{WBC}Normal0-0.5The Critical Access Hospital Physician GroupComment on above:Performed By: #### CBC, FE and TIBC, ARISTIDES, [id number] ####[place] [address] USAPlatelet mean volume (Bld) [Entitic vol]6.9 fLNormal6.3-10.7The Critical Access Hospital Physician GroupComment on above: Performed By: #### CBC, FE and TIBC, ARISTIDES, [id number] ####[address] [place] [address] USAPlatelets (Bld) [#/Vol]345 10*3/vYHvaphe291-361Bmj Critical Access Hospital Physician GroupComment on above:Performed By: #### CBC, FE and TIBC, ARISTIDES, [id number] ####[place] [address] USARBC (Bld) [#/Vol]3.93 10*6/uLNormal3.60-5.00 The Critical Access Hospital Physician GroupComment on above:Performed By: #### CBC, FE and TIBC, ARISTIDES, [id number] ####[address] [place] [address] USAWBC (Bld) [#/Vol]8.9 10*3/uLNormal3.8-11.6The Critical Access Hospital Physician GroupComment on above:Performed By: #### CBC, FE and TIBC, ARISTIDES, [id number] ####[place] [address] USAErythrocyte Sedimentation Rateon 04-93-5709JUD (Bld) [Velocity]103 mm/hHigh 0-29The Critical Access Hospital Physician GroupComment on above:Result Comment: PERFORMED BY: [place] [address] PATHOLOGIST INFORMATION OPERATOR KATHLEEN RAMOS M.D.Performed By: #### ESR #### [place] [address] USAErythrocyte sedimentation rate by Photometric method Ordered By: Pedro Pablo Cruz on 54-01-8314GXW Photometric method (Bld) [Velocity] Erythrocyte sedimentation rate by Photometric methodHigh0-29C[facility] Orthopedic CenterFerritinon 11-88-2248Boqhgdlj [Mass/Vol]8.6 ng/mLLow11.0-306.8The Critical Access Hospital Physician GroupComment on above:Performed By: #### CBC, FE and TIBC, ARISTIDES, [id number] ####[address] [place] [address] USAFolate [Mass/volume] in Serum or PlasmaOrdered By: Katharina Jaegerbrandy on 47-15-2944Kdgrvz [Mass/Vol]Folate [Mass/volume] in Serum or Plasma>5.9C[facility] Clinic Orthopedic CenterComment on above:Folate reference range: >5.9 ng/mlThe [facility] technical consultation on folate and vitamin k07fvkcjqsjnyoa has determined that folate concentrations lessthan 4 ng/ml are considered deficient.Folate [Mass/Vol]28.0 ng/mL>5.9C[facility] Clinic Orthopedic CenterComment on above:Folate reference range: >5.9 ng/mlThe WHO technical consultation on folate and vitamin q93plesignucgrt has determined that folate concentrations lessthan 4 ng/ml are considered deficient.Iron and TIBC Profileon 08-24-2024% Iron Saturation3.2 %Low 20-50The [facility] GroupComment on above:Performed By: #### CBC, FE and TIBC, ARSITIDES, [id number] ####[address] [place] [address] USAIron [Mass/Vol]14 ug/oELci13-528Yax Critical Access Hospital Physician GroupComment on above:Performed By: #### CBC, FE and TIBC, ARISTIDES, [id number] ####[address] [place] [address] USATotal Iron Binding Qtvjcfgc375 ug/fOGquikz318-855Syu Critical Access Hospital Physician GroupComment on above:Performed By: #### CBC, FE and TIBC, ARISTIDES, [id number] ####[address] [place] [address] USATransferrin [Mass/Vol]312 mg/rQXsyjos395-039Kth Critical Access Hospital Physician GroupComment on above: Performed By: #### CBC, FE and TIBC, ARISTIDES, [id number] ####[address] [place] [address] USAVit. B12/Folate Profileon 41-53-0234Seklpw08.0 ng/mLNormal>5.9The Critical Access Hospital Physician GroupComment on above:Result Comment: Folate reference range: >5.9 ng/ml The WHO technical consultation on folate and vitamin b12 deficiencies has determined that folate concentrations less than 4 ng/ml are considered deficient. PERFORMED BY: [facility] [address] [place] [address] PATHOLOGIST INFORMATION OPERATOR KATHLEEN RAMOS M.D.Performed By: #### CBC, FE and TIBC, ARISTIDES, [id number] ####[facility] [place] [address] USAVitamin B12 ser/plasOrdered By: Katharina Toledo on 93-57-8980Ngcnmjvon (Vitamin B12) [Mass/Vol]Vitamin B12 ser/sjkg053-981Iimopvlm[address] [place], [place] [address]Cobalamin (Vitamin B12) [Mass/Vol]417 pg/eEPwftww225-910Mdgomcltt[address] [place] [address] Comment on above:Performed By: #### CBC, FE and TIBC, ARISTIDES, [id number] ####[facility] [place] [address] USAFL UPPER GI W AIR*on 15-36-1845[place] [address] Fluoroscopy Report Signed Patient: BREANN STARKS MR#: [id number] : 1945 Acct:[id number] Age/Sex: 78 / F ADM Date: 08/07/24 Loc: [place] Attending Dr: RENNY HANSEN Ordering Physician: RENNY HANSEN Date of Service: 08/07/24 Procedure(s): [place] upper GI w air Accession Number(s): [id number] cc: RENNY HANSEN [place] [id number] Patient Name: BREANN STARKS MRN: [id number] date: 1945 Sex: F Assigned Patient Location: [place] Current Patient Location: Accession/Order Number: [id number] Exam Date: 08/07/2024 08:45 Report Date: 08/08/2024 [...] 1. Moderate gastroesophageal reflux. Electronically authenticated by: PAULA BROWN Date: 08/08/2024 06:31 Dictated By: Paula Brown M.D. Signed By: 08/08/24632 DD/ 0 TD/TT: Credit Card Specialist:BRANDONHRadiology, Radiologist, MD - 08/08/2024 [place] [address] Fluoroscopy Report Signed Patient: BREANN STARKS MR#: [id number] : 1945 Acct:[id number] Age/Sex: 78 / F ADM Date: 08/07/24 Loc: [place] Attending Dr: RENNY HANSEN Ordering Physician: RENNY HANSEN Date of Service: 08/07/24 Procedure(s): [place] upper GI w air Accession Number(s): [id number] cc: RENNY HANSEN [place] [address] Patient Name: BERANN STARKS MRN: [id number] date: 1945 Sex: F Assigned Patient Location: [place] Current Patient Location: Accession/Order Number: [id number] Exam Date: 08/07/2024 08:45 Report Date: 08/08/2024 [...] 1. Moderate gastroesophageal reflux. Electronically authenticated by: PAULA BROWN Date: 08/08/2024 06:31 Dictated By: Paula Brown M.D. Signed By: 08/08/2433 DD/ 0 TD/TT: Credit Card Specialist: CANDIDO [employer]No Panel InformationOrdered By: Radiologist Radiology on 74-47-7190KPXX [employer] Work Phone: No Panel Informationon 30-49-2326Whtqmgbrx Study observation (narrative)[facility] [employer] TechnologyXR CINERADIOGRAPHYon 09-53-4534[place] [address] Fluoroscopy Report Signed Patient: BREANN STARKS MR#: [id number] : 1945 Acct:[id number] Age/Sex: 78 / F ADM Date: 08/07/24 Loc: [place] Attending Dr: RENNY HANSEN Ordering Physician: RENNY HANSEN Date of Service: 08/07/24 Procedure(s): FL cineradiography Accession Number(s): [id number] cc: RENNY HANSEN [place] [id number] Patient Name: BREANN STARKS MRN: [id number] date: 1945 Sex: F Assigned Patient Location: [place] Current Patient Location: Accession/Order Number: [id number] Exam Date: 08/07/2024 08:45 Report Date: 08/08/2024 [...] 1. Moderate gastroesophageal reflux. Electronically authenticated by: PAULA BROWN Date: 08/08/2024 06:31 Dictated By: Paula Brown M.D. Signed By: 08/08/24632 DD/ 0 TD/TT: Credit Card Specialist:TBHRadiology, Radiologist, MD - 08/08/2024 [place] [address] Fluoroscopy Report Signed Patient: BREANN STARKS MR#: [id number] : 1945 Acct:[id number] Age/Sex: 78 / F ADM Date: 08/07/24 Loc: [place] Attending Dr: RENNY HANSEN Ordering Physician: RENNY HANSEN Date of Service: 08/07/24 Procedure(s): FL cineradiography Accession Number(s): [id number] cc: ERNNY HANSEN [place] [address] Patient Name: BREANN STARKS MRN: [id number] date: 1945 Sex: F Assigned Patient Location: [place] Current Patient Location: Accession/Order Number: [id number] Exam Date: 08/07/2024 08:45 Report Date: 08/08/2024 [...] 1. Moderate gastroesophageal reflux. Electronically authenticated by: PAULA BROWN Date: 08/08/2024 06:31 Dictated By: Paula Brown M.D. Signed By: 08/08/24632 DD/ 0 TD/TT: Credit Card Specialist: CANDIDO [facility] HospitalTRANSFERRINon 02-09-7264Tlrmdcviuxw [Mass/Vol]284 mg/dL192 - 364 mg/dLENCOMPASS HEALTH HealthcareComment on above:Performed at: - [facility] [id number] Medical Coding Instructor: Baudilio Givens PhD, Phone: [phone] [facility] CBC WITH AUTO DIFFon 74-25-9281LGFHOGRUQ ABSOLUTE AUTO0.1NOMS HealthcareBasophils/100 WBC (Bld)0.9 %0.2 - 2.0 %[facility] Eosinophils/100 WBC (Bld)0.9 %0.9 - 7.0 %[facility] HealthErythrocyte distribution width (RBC) [Ratio]17.7 %High11.0 - 15.0 %[facility] HealthHematocrit (Bld) [Volume fraction]29.9 %Low36.0 - 48.0 %[facility] HealthHemoglobin (Bld) [Mass/Vol]8.7 g/dLLow12.0 - 16.0 g/dLCarondelet HealthIMMATURE GRANULOCYTES ABS AUTO0.03NOSaint John's HospitalImmature granulocytes/100 WBC (Bld)0.3 %0.0 - 0.5 %[facility] HealthInterpretation and review of laboratory resultsAbnormalCarondelet Health LYMPHOCYTES ABSOLUTE AUTO1.4NOSaint John's HospitalLymphocytes/100 WBC (Bld)14.1 %Low 20.5 - 60.0 %[facility] CareH (RBC) [Entitic mass]22.3 pgLow26.7 - 34.0 pgNOCenterPointe HospitalHC (RBC) [Mass/Vol]29.1 g/dLLow29.9 - 35.2 g/dLCarondelet HealthMCV (RBC) [Entitic vol]76.7 fLLow81.0 - 99.0 fLCarondelet HealthMONOCYTES ABSOLUTE AUTO0.7NOMS HealthcareMonocytes/100 WBC (Bld)6.6 %1.7 - 12.0 %[facility] NEUTROPHILS ABSOLUTE AUTO7.7HighNOMS HealthcareNeutrophils/100 WBC (Bld)77.2 % High43.0 - 75.0 %NOMS HealthcarePlatelet mean volume (Bld) [Entitic vol]9.3 fL Low9.5 - 13.5 fLNOMS HealthcareTBH EO #0.1NOMS HealthcareTBH KLE204IPES HealthcareTBH RBC3.9LowNOMS HealthcareTBH DJW14RALY HealthcareCLINISYNCNOMS HealthcareMETRO IRON AND TIBCon 32-12-8493Ielhxzihdkkdrg and review of laboratory resultsAbnormalNOMS HealthcareTBH IRON17 ug/dLLow50.0 - 170.0 ug/dL NOMS HealthcareTBH PERCENT IRON SATURATION4.5 %NOMS HealthcareTBH TOTAL IRON BINDING IYLDCUVB925 ug/dL250.0 - 450.0 ug/dLNOLA HealthcareCLINISYNCNHARMON MEMORIAL [facility]ITAL [facility] HealthcareOffice Visiton 22-22-4474Ieyrkx-up [id number] Breann Starks 1945 F Date Provider Department Center 07/18/2024 00669-EJIHNDKOLTON ALTMAN [facility] Family History Adopted: Yes Family history unknown: Yes Family Status - Relation Status Age at Mother Father Level of Service:39511 DC OFFICE/OUTPATIENT ESTABLISHED MOD MDM 30 MIN Reason for Visit and Comments: Atrial Fibrillation [80] PACEMAKER [Other] Coronary Artery Disease [187] Hypertension [455488] Sinus node dysfunction [Other] - HAS BOSTON PACER Obesity [4215858474] Edema [1961235197]NormalCleveland Clinic Hillcrest HospitalCT Cervical spine W contrast Xin 40-50-2526[place] [address] [place] Scan Report Signed Patient: BREANN STARKS MR#: [id number] : 1945 Acct:[id number] Age/Sex: 78 / F ADM Date: 06/26/24 Loc: CT Attending Dr: Non-Staff Physician Magui Ordering Physician: Channing Devlin M.D. Date of Service: 06/26/24 Procedure(s): CT cervical spine w con Accession Number(s): [id number] cc: RENNY HANSEN [address] [address] Patient Name: BREANN STARKS MRN: [id number] date: 1945 Sex: F Assigned Patient Location: CT Current Patient Location: Accession/Order Number: [id number] Exam Date: 06/26/2024 14:58 Report Date: 06/28/2024 [...] due to patient body habitus and poor cgmrfe-az-sydos ratio BONES: Reversal of normal cervical lordosis. [...] or foraminal stenosis Electronically authenticated by: HONG VILLARREAL Date: 06/28/2024 08:43 Dictated By: Hong Villarreal M.D. Signed By: 06/28/24844 DD/ 2 TD/TT: Credit Card Specialist:MIGUEL ANGELadiologjoby, Radiologist, - 06/28/2024 [place] [address] CT Scan Report Signed Patient: BREANN STARKS MR#: [id number] : 1945 Acct:[id number] Age/Sex: 78 / F ADM Date: 06/26/24 Loc: CT Attending Dr: VangieStaff Physician [place] Ordering Physician: Channing Devlin M.D. Date of Service: 06/26/24 Procedure(s): CT cervical spine w con Accession Number(s): [id number] cc: RENNY HANSEN [place] [address] Patient Name: BREANN STARKS MRN: [id number] date: 1945 Sex: F Assigned Patient Location: CT Current Patient Location: Accession/Order Number: [id number] Exam Date: 06/26/2024 14:58 Report Date: 06/28/2024 [...] due to patient body habitus and poor hhmpog-io-mrjxt ratio BONES: Reversal of normal cervical lordosis. [...] or foraminal stenosis Electronically authenticated by: HONG VILLARREAL Date: 06/28/2024 08:43 Dictated By: Hong Villarreal M.D. Signed By: 06/28/2445 DD/ 2 TD/TT: Credit Card Specialist: CANDIDO BarajasRadiology Study observation (narrative)CANDIDO HealthcareCT Shoulder - left W contrast Xin 71-21-0644[place] [address] CT Scan Report Signed Patient: BRENAN STARKS MR#: [id number] : 1945 Acct:[id number] Age/Sex: 78 / F ADM Date: 06/26/24 Loc: CT Attending Dr: Non-Staff Physician Magui Ordering Physician: Channing Devlin M.D. Date of Service: 06/26/24 Procedure(s): CT Shoulder LT w/ Con Accession Number(s): [id number] cc: RENNY HANSEN [place] [address] Patient Name: BREANN STARKS MRN: [id number] date: 1945 Sex: F Assigned Patient Location: CT Current Patient Location: Accession/Order Number: [id number] Exam Date: 06/26/2024 14:58 Report Date: 06/28/2024 [...] with mammography as well. Electronically authenticated by: NICK JURADO Date: 06/28/2024 08:42 Dictated By: Nick Jurado M.D. Signed By: 06/28/24844 DD/ 1 TD/TT: Credit Card Specialist:TBHRadiology, Radiologist, - 06/28/2024 [place] [address] CT Scan Report Signed Patient: BREANN STARKS MR#: [id number] : 1945 Acct:[id number] Age/Sex: 78 / F ADM Date: 06/26/24 Loc: CT Attending Dr: Non-Staff Physician M.DMeena Ordering Physician: Channing Devlin M.D. Date of Service: 06/26/24 Procedure(s): CT Shoulder LT w/ Con Accession Number(s): [id number] cc: RENNY HANSEN [place] [address] Patient Name: BREANN STARKS MRN: [facility]:[id number] date: 1945 Sex: F Assigned Patient Location: CT Current Patient Location: Accession/Order Number: [id number] Exam Date: 06/26/2024 14:58 Report Date: 06/28/2024 [...] with mammography as well. Electronically authenticated by: NICK JURADO Date: 06/28/2024 08:42 Dictated By: Nick Jurado M.D. Signed By: 06/28/24844 DD/ 1 TD/TT: Credit Card Specialist: [facility] HealthRadiology Study observation (narrative)[facility] Panel InformationOrdered By: Radiologist Radiology on 54-77-4606KEPB [employer] Work Phone: cNOVon 09-28-1218PQEHBpbmpl Visit (LOORRM) BREANN STARKS ([id number]) 1945 F Date Time Provider Department 05/22/24 [...] She was recommended for second opinion at [facility]. She also had a CRP and ESR [...] date: COPD (chronic obstructive pulmonary disease) ([facility]) SOCIAL HISTORY: Tobacco Use: Never EXAMINATION: GENERAL: [...] her. I ordered (more content not included)... NormalCleveland Clinic Marymount HospitalXR SHLDR 4V AP/HECTOR/LAT/OUTLET LTon 82-75-0356PB SHLDR 4V AP/HECTOR/LAT/OUTLET LT* * *Final Report* * * DATE OF [...] other significant abnormality. IMPRESSION: EXPECTED POSTOPERATIVE APPEARANCE Credit Card Specialist: PSCB Transcribe Date/Time: May 22 2024 2:42P Dictated by : VILMA ABREU MD This examination was interpreted and the report reviewed and electronically signed by: VILMA ABREU MD on May 22 2024 2:42PM EST [id number] Clinic Marymount HospitalXR Shoulder - left 4 Views on 48-10-4545DOQJMESANF: EXPECTED POSTOPERATIVE APPEARANCE Credit Card Specialist: PSCHermelinda Transcribe Date/Time: May 22 2024 2:42P Dictated by : VILMA ABREU MD This examination was interpreted and the report reviewed and electronically signed by: VILMA ABREU MD on May 22 2024 2:42PM [facility] DIVISION OF RADIOLOGY* * *Final Report* * * DATE OF [...] wall. No other significant abnormality. DIVISION OF RADIOLOGYProvider, [facility] [place] - 05/22/2024 * * *Final Report* * [...] significant abnormality. IMPRESSION IMPRESSION: EXPECTED POSTOPERATIVE APPEARANCE Credit Card Specialist: [facility] Transcribe Date/Time: May 22 2024 2:42P Dictated by : VILMA ABREU MD This examination was interpreted and the report reviewed and electronically signed by: VILMA ABREU MD on May 22 2024 2:42PM [facility] HospitalRadiology Study observation (narrative)[facility]XR Shoulder - left 4 ViewsOrdered By: Ccf Provider on 56-95-3095Qgeadddyn ClinicALL CBC WITH AUTO DIFFon 70-73-8542PZQJZJOLL ABSOLUTE AUTO0.0[facility] Basophils/100 WBC (Bld)0.6 %0.2 - 2.0 %NOMS HealthcareEosinophils/100 WBC (Bld) 1.0 %0.9 - 7.0 %NOMS HealthcareErythrocyte distribution width (RBC) [Ratio]19.6 %High11.0 - 15.0 %NOMS HealthcareHematocrit (Bld) [Volume fraction]32.9 %Low36.0 - 48.0 %NOMS HealthcareHemoglobin (Bld) [Mass/Vol]9.7 g/dLLow12.0 - 16.0 g/dL NOMS HealthcareIMMATURE GRANULOCYTES ABS AUTO0.02NOMS HealthcareImmature granulocytes/100 WBC (Bld)0.3 %0.0 - 0.5 %N[facility] HealthcareInterpretation and review of laboratory resultsAbnormalNOMS HealthcareLYMPHOCYTES ABSOLUTE AUTO1.4 NOMS HealthcareLymphocytes/100 WBC (Bld)20.4 %Low20.5 - 60.0 %NOMS HealthcareMCH (RBC) [Entitic mass]22.8 pgLow26.7 - 34.0 pgUniversity of Missouri Health CareHC (RBC) [Mass/Vol]29.5 g/dLLow29.9 - 35.2 g/dLUniversity of Missouri Health CareV (RBC) [Entitic vol]77.4 fLLow81.0 - 99.0 fLENCOMPASS HEALTH HealthcareMONOCYTES ABSOLUTE AUTO0.7NOSaint John's Hospital Monocytes/100 WBC (Bld)9.8 %1.7 - 12.0 %[facility] HealthNEUTROPHILS ABSOLUTE AUTO 4.7NOLA HealthcareNeutrophils/100 WBC (Bld)67.9 %43.0 - 75.0 %[facility] Platelet mean volume (Bld) [Entitic vol]8.5 fLLow9.5 - 13.5 fLCarondelet HealthTBH EO #0.1NOMS [facility] HospitalTB MPJ974JXHC [facility] HospitalTB RBC4.25NOMS [facility] HospitalTB WBC 7.0NOLA HealthcareCLINISYNCNOMS HealthcareCA ECHO DOPPLER COMPLETEon 03-02-2024 [place] [address] Cardiology Report Signed Patient: BREANN STARKS MR#: [id number] : 1945 Acct:[id number] Age/Sex: 78 / F ADM Date: 02/29/24 Loc: CARD Attending Dr: Shaikh Cira [place] Ordering Physician: Shaikh Magui Denis Date of Service: 02/29/24 Procedure(s): CA echo doppler complete Accession Number(s): [id number] cc: Shaikh Magui Denis Patient Name: BREANN STARKS MR#: [id number] : 1945 Exam Date: 02/29/2024 Ordering Doctor: [...] 09:05 Dictated By: SAKINA SALAZAR Signed By: 03/02/24 0906 (more content not included)...TBHRadiology, Radiologist, MD - 03/02/2024 [place] [address] Cardiology Report Signed Patient: BREANN STARKS MR#: [id number] : 1945 Acct:[id number] Age/Sex: 78 / F ADM Date: 02/29/24 Loc: CARD Attending Dr: Shaikh Cira [place] Ordering Physician: Shaikh Magui Denis Date of Service: 02/29/24 Procedure(s): CA echo doppler complete Accession Number(s): [id number] cc: Shaikh Magui Denis Patient Name: BREANN STARKS MR#: [id number] : 1945 Exam Date: 02/29/2024 Ordering Doctor: [...] SALAZAR Signed By: 03/02/24905 DD/ 4 TD/TT: Credit Card Specialist: CANDIDO [facility] HospitalRadiology Study observation (narrative)[facility] ECHO DOPPLER COMPLETEOrdered By: Radiologist Radiology on 44-94-1680[facility] Work Phone: XR CHEST 2Von 65-04-4426[address] [address] XRay Report Signed Patient: BREANN STARKS MR#: [id number] : 1945 Acct:[id number] Age/Sex: 78 / F ADM Date: 02/29/24 Loc: CARD Attending Dr: Shaikh Cira [place] Ordering Physician: Shaikh Magui Denis Date of Service: 02/29/24 Procedure(s): XR chest 2V Accession Number(s): [id number] cc: Shaikh Magui Denis [address] [address] Patient Name: BREANN STRAKS MRN: [id number] date: 1945 Sex: F Assigned Patient Location: CARD Current Patient Location: LAB Accession/Order Number: [id number] Exam Date: 02/29/2024 10:05 Report Date: 03/01/2024 [...] pulmonary vascular congestion. Electronically authenticated by: ABDIRIZAK RAMOS Date: 03/01/2024 09:53 Dictated By: Abdirizak Ramos M.D. Signed By: 03/01/24 0956 DD/ 0953 TD/TT: Credit Card Specialist:TBHRadiology, Radiologist, MD - 03/01/[address] [address] XRay Report Signed Patient: BREANN STARKS MR#: [id number] : 1945 Acct:[id number] Age/Sex: 78 / F ADM Date: 02/29/24 Loc: C[place] Attending Dr: Shaikh Cira [place] Ordering Physician: Shaikh Magui Denis Date of Service: 02/29/24 Procedure(s): XR chest 2V Accession Number(s): [id number] cc: Shaikh Magui Deins The [address] [address] Patient Name: BREANN STARKS MRN: [id number] date: 1945 Sex: F Assigned Patient Location: CARD Current Patient Location: LAB Accession/Order Number: [id number] Exam Date: 02/29/2024 10:05 Report Date: 03/01/2024 [...] pulmonary vascular congestion. Electronically authenticated by: ABDIRIZAK RAMOS Date: 03/01/2024 09:53 Dictated By: Abdirizak Ramos M.D. Signed By: 03/01/2456 DD/ TD/TT: Credit Card Specialist: NOMFuentes HealthcareRadiology Study observation (narrative)NOMS HealthcareXR CHEST 2V Ordered By: Radiologist Radiology on 51-66-2097PQXL Healthcare Work Phone: XR Shoulder - left 2 Viewson 79-37-2127[place]fM[place] [address] XRay Report Signed Patient: BREANN STARKS MR#: [id number] : 1945 Acct:[id number] Age/Sex: 78 / F ADM Date: 02/21/24 Loc: RAD Attending Dr: Mabel Clement NP Ordering Physician: Mabel Clement NP Date of Service: 02/21/24 Procedure(s): XR shoulder LT min 2V Accession Number(s): [id number] cc: Shaikh Magui Denis; Mabel Clement NP The [place] [id number] Patient Name: BREANN STARKS MRN: [id number] date: 1945 Sex: F Assigned Patient Location: RAD Current Patient Location: Accession/Order Number: [id number] Exam Date: 02/21/2024 17:48 Report Date: 02/22/2024 07:27 At the request of: MABEL CLEMENT Procedure: XR shoulder LT min 2V PROCEDURE: [...] no mechanical failure Electronically authenticated by: HONG VILLARREAL Date: 02/22/2024 07:27 Dictated By: Hong Villarreal M.D. Signed By: 02/22/2430 DD/ 6 TD/TT: Credit Card Specialist:TBHRadiology, Radiologist, - 02/22/2024 [place] [address] XRay Report Signed Patient: BREANN STARKS MR#: [id number] : 1945 Acct:[id number] Age/Sex: 78 / F ADM Date: 02/21/24 Loc: [facility] Attending Dr: Mabel Clement NP Ordering Physician: Mabel Clement NP Date of Service: 02/21/24 Procedure(s): XR shoulder LT min 2V Accession Number(s): [id number] cc: Shaikh Magui Denis; Mabel Clement NP The [place] [address] Patient Name: BREANN STARKS MRN: [id number] date: 1945 Sex: F Assigned Patient Location: [facility] Current Patient Location: Accession/Order Number: [id number] Exam Date: 02/21/2024 17:48 Report Date: 02/22/2024 07:27 At the request of: MABEL CLEMENT Procedure: XR shoulder LT min 2V PROCEDURE: [...] no mechanical failure Electronically authenticated by: HONG VILLARREAL Date: 02/22/2024 07:27 Dictated By: Hong Villarreal M.D. Signed By: 02/22/24729 DD/ 6 TD/TT: Credit Card Specialist: [facility] HealthcareRadiology Study observation (narrative)[facility] HealthcareXR Shoulder - left 2 ViewsOrdered By: Radiologist Radiology on 35-26-5340AEWRCarondelet Health Work Phone: DXA Skeletal system Views for bone densityon 45-70-1269Eprcnhvabyyakq and review of laboratory resultsNormalNOSaint John's Hospital normalNOSaint John's HospitalNOLA HealthcareNo Panel Informationon 34-35-7291Vizatitmx Study observation (narrative)NOM HealthcareXR DEXA AXIAL SKELETONon 12-12-2023 [place] [address] XRay Report Signed Patient: BREANN STARKS MR#: [id number] : 1945 Acct:[id number] Age/Sex: 78 / F ADM Date: 12/12/23 Loc: RAD Attending Dr: Kayley Barry 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 Ordering Physician: Kayley Barry NP Date of Service: 12/12/23 Procedure(s): XR DEXA axial skeleton Accession Number(s): [id number] cc: Shaikh Magui Denis; Kayley Barry NP [address] [address] Patient Name: BREANN STARKS MRN: [id number] date: 1945 Sex: F Assigned Patient Location: RAD Current Patient Location: RAD Accession/Order Number: [id number] Exam Date: 12/12/2023 12:57 Report Date: 12/12/2023 13:46 At the request of: KAYLEY BARRY Procedure: XR DEXA axial skeleton EXAMINATION: [...] - Low Fracture Risk Electronically authenticated by: PAULA BROWN Date: 12/12/2023 13:46 Dictated By: Paula Brown M.D. Signed By: 12/12/238 DD/ 45 TD/TT: Credit Card Specialist:TBHRadiology, Radiologist, MD - 12/15/2023 [place] [address] XRay Report Signed Patient: BREANN STARKS MR#: [id number] : 1945 Acct:[id number] Age/Sex: 78 / F ADM Date: 12/12/23 Loc: RAD Attending Dr: Kayley Barry 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 Ordering Physician: Kayley Barry NP Date of Service: 12/12/23 Procedure(s): XR DEXA axial skeleton Accession Number(s): [id number] cc: Shaikh Magui Denis; Kayley Barry NP The [place] [id number] Patient Name: BREANN STARKS MRN: [id number] date: 1945 Sex: F Assigned Patient Location: RAD Current Patient Location: RAD Accession/Order Number: [id number] Exam Date: 12/12/2023 12:57 Report Date: 12/12/2023 13:46 At the request of: KAYLEY BARRY Procedure: XR DEXA axial skeleton EXAMINATION: [...] - Low Fracture Risk Electronically authenticated by: PAULA BROWN Date: 12/12/2023 13:46 Dictated By: Paula Brown M.D. Signed By: 12/12/238 DD/ 134 TD/TT: Credit Card Specialist: [facility] HealthXR DEXA AXIAL SKELETONOrdered By: Radiologist Radiology on 58-33-2008QBMK [employer] Work Phone: XR LSPINE W_OBLS AND FLEX_EXTon 27-24-3659IW LSPINE W_OBLS AND FLEX_EXTEXAMINATION: XR LSPINE W_OBLS AND FLEX_EXT HISTORY: Lumbar [...] Electronically authenticated by: PAULA BROWN Date: 2023-01-31 11:34St. Rita's HospitalLIPID PROFILEon 45-37-1826NJAW-HDL RATIO NORMSEE Lutheran HospitalComment on above:Result Comment: 3.3 - 4.4 LOW RISK 4.4 - 7.1 AVERAGE RISK 7.1 - 11.0 MODERATE RISK >11.0 HIGH RISKPerformed By: #### LIPID ####[facility] [address] [place] [address]Dr. Erasmo ChangCholesterol [Mass/Vol]105 mg/dLNormal<=200[facility] Comment on above:Performed By: #### LIPID ####[facility] [address] [place] [address]Dr. Yilan ChangCholesterol in HDL [Mass/Vol] 48 mg/iRSzupht29-28XrzTogus Va Medical CenterComment on above:Performed By: #### LIPID ####[facility] [address] [place], [place] [address]Dr. Yilan ChangCholesterol in LDL [Mass/Vol]48.2 mg/dLSt. Rita's HospitalComment on above:Performed By: #### LIPID ####[facility] [address] [place], [place] [address]Dr. Heavenean Smith Cholesterol.total/Cholesterol in HDL [Mass ratio]2.2 {ratio}NormalTogus Va Medical CenterComment on above:Performed By: #### LIPID ####[facility] [address] [place], [place] [address]Dr. Yilan ChangHDL NORMAL> or = 60 mg/dl - LOW CARDIOVASCULAR RISK <40 mg/dl - HIGH CARDIOVASCULAR RISKNormal [facility] Medical CenterComment on above:Performed By: #### LIPID ####[facility] [address] [place], [place] [address]Dr. Yilan ChangLDL CALC NORMALSEE Lutheran HospitalComment on above:Result Comment: <100 mg/dl OPTIMAL 100 - 129 mg/dl NEAR OR ABOVE OPTIMAL 130 - 159 mg/dl BORDERLINE HIGH 160 - 189 mg/dl HIGH >190 mg/dl VERY HIGHPerformed By: #### LIPID ####[facility] [address] [place] [address]DrMeena SmithTriglyceride [Mass/Vol]44 mg/dLNormal<=150The [facility] CenterComment on above:Performed By: #### LIPID ####[facility] [address] [place] [address]Dr. Erasmo SmithVLDL CALC8.8 mg/dLNormalThe [facility] Medical CenterComment on above:Performed By: #### LIPID ####[facility] [address] [place] [address]DrMeena SmithCULTURE BLOODon 58-54-4637Vuzzholvzbj examination of blood, culture Culture Observations: Aerobic and Anaerobic bottle positive. BCID: E. Coli Isolate 1 Escherichia coli Growth of ORGANISM 1 Escherichia coli ANTIBIOTIC M.I.C RX STATUS Ampicillin <=2 S F Ampicillin/Sulbactam <=2 S F Piperacillin/Tazobactam <=4 S F Cefazolin <=4 S F Ceftazidime <=1 S F Ceftriaxone <=1 S F Ertapenem <=0.5 S F Imipenem <=0.25 S F Amikacin <=2 S F Gentamicin <=1 S F Tobramycin <=1 S F Ciprofloxacin <=0.25 S F Levofloxacin <=0.12 S F Trimethoprim/Sulfamethoxazole <=20 S FNormalThe [facility] CenterComment on above:Performed By: #### BLDCX1 ####[facility] [address] [place], [place] [address]DrMeena Garcia 32-90-2046Fwfpclywlxr peptide B (Bld) [Mass/Vol]413.0 pg/mLNormal<=1,800.0The [facility] CenterComment on above: Performed By: #### BNP #### [facility] Laboratory [address] [address] [address] Erasmo Jerome AUTO DIFFon 99-06-9444XYEU #0.0 103/ulNormal0.0-0.1The [facility] CenterComment on above:Performed By: #### CBC ####[facility] [address] [place], [place] [address]DrKirk ChangBasophils/100 WBC (Bld)0.2 %Normal0.2-2.0The [facility] [facility] CenterComment on above:Performed By: #### CBC ####[facility] Tzurllykpr[address] [place], [place] [address]Dr.Erasmo ChangEO #0.4 103/ulNormal0.0-0.7The [facility] CenterComment on above:Performed By: #### CBC ####[facility] Evabppmpqu037[address] [place], [place] [address]Dr.Erasmo ChangEosinophils/100 WBC (Bld)2.1 %Normal 0.9-7.0The [facility] CenterComment on above:Performed By: #### CBC ####[facility] Snhotdhatb8265[address] [place], [place] [address]Dr.Erasmo Smith Erythrocyte distribution width (RBC) [Ratio]17.2 %Critically high11.0-15.0The [facility] CenterComment on above:Performed By: #### CBC ####[facility] Lduezhfrmb26[address] [place], [place] [address]Dr.Heavenean ChangHematocrit (Bld) [Volume fraction]29.2 %Critically low36.0-48.0The [facility] CenterComment on above:Performed By: #### CBC ####[facility] Uygzcpmveu139[address] [place], [place] [address]Dr.Heavenean ChangHemoglobin (Bld) [Mass/Vol]9.5 g/dL Critically low12.0-16.0The [facility] CenterComment on above:Performed By: #### CBC ####[facility] Wqlbijjmvg1657[address] [place], [place] [address]Dr. Heavenean ChangIG #0.13 10e3/ulCritically high0.00-0.03The [facility] CenterComment on above:Performed By: #### CBC ####[facility] Icrkmrqque509[address] [place], [place] [address]Dr.Erasmo ChangIG %0.8 %Critically high0.0-0.5The [facility] CenterComment on above:Performed By: #### CBC ####[facility] [address] [address]Dr.Erasmo SmithLYMPH #1.8 103/ulNormal1.2-3.8The [facility] CenterComment on above:Performed By: #### CBC ####[facility] Azpm[address]ky[address] [address]Dr. Erasmo SmithLymphocytes/100 WBC (Bld)10.3 %Critically low20.5-60.0The [facility] HospitalComment on above:Performed By: #### CBC ####[facility] Gbtzacoqfg728[address] [place], [place] [address]Dr.Erasmo SmithMANUAL DIFF REQ NONormalThe [facility] CenterComment on above:Performed By: #### CBC ####[facility] Eofiflwjse9785[address] [place], [place] [address]Dr. Erasmo SmithMCH (RBC) [Entitic mass]25.7 pgCritically low26.7-34.0The [facility] CenterComment on above:Performed By: #### CBC ####[facility] Ruljkoymvm807[address] [place], [place] [address]Dr.Erasmo SmithMCHC (RBC) [Mass/Vol]32.5 g/qJGqspxg54.9-35.2The [facility] CenterComment on above: Performed By: #### CBC ####[facility] Qlcofrkepe7979[address] [place], [place] [address]Dr.Erasmo SmithMCV (RBC) [Entitic vol]79.1 fLCritically low81.0-99.0The [facility] CenterComment on above:Performed By: #### CBC ####[facility] Rxmnlpqxlh755186 [address] [place], [place] [address]Dr. Erasmo SmithMONO #1.5 103/ulCritically high0.3-0.8The [facility] HospitalComment on above:Performed By: #### CBC ####[facility] Euqchpxyel9467[address] [place], [place] [address]Dr.Erasmo ChangMonocytes/100 WBC (Bld)8.7 %Normal 1.7-12.0The [facility] CenterComment on above:Performed By: #### CBC ####[facility] [address]zc[address] [address]DrMeena SmithNEUT #13.4 103/ulCritically high1.4-6.5The [facility] CenterComment on above:Performed By: #### CBC ####[facility] [address]nezcqr[address] [address]DrKirk SmithNeutrophils/100 WBC (Bld)77.9 % Critically high43.0-75.0The [facility] CenterComment on above:Performed By: #### CBC ####[facility] Qbaqlcurxp[address] [address]Dr. Erasmo Johnsonlet mean volume (Bld) [Entitic vol]9.3 fLCritically low9.5-13.5 The [facility] CenterComment on above:Performed By: #### CBC ####[facility] Hpwjhfdgrt69[address] [place], [place] [address]DrKirk SmithPLT205 103/hrEcvuaa922-689Tjx [facility] CenterComment on above:Performed By: #### CBC ####[facility] Enckuorzha0737[address] [place], [place] [address]Dr. Erasmo SmithRBC3.69 106/ulCritically low4.20-5.40The [facility] CenterComment on above:Performed By: #### CBC ####[facility] Mjeryilfdy144[address] [place], [place] [address]DrKirk SmithWBC17.2 103/ulCritically high4.0-11.0The [facility] HospitalComment on above:Performed By: #### CBC ####[facility] Ntqcmpxfvo5[address] [place], [place] [address]DrKirk SmithMAGNESIUMon [id number] [Mass/Vol]1.9 mg/dLNormal1.8-2.4The [facility] HospitalComment on above:Performed By: #### BNP #### [facility] Laboratory [address] [place] [address] Dr. Erasmo Zimmer 14(COMP METB)on [id number] [Mass/Vol]2.6 g/dL Critically low3.4-5.0The [facility] CenterComment on above:Performed By: #### BNP #### [facility] [address] [address] [address] Erasmo SmithAlbumin/Globulin [Mass ratio]0.6 {ratio}NormalThe [facility] CenterComment on above:Performed By: #### BNP #### [facility] [address] [place] [address] Dr. Erasmo MenaP [Catalytic activity/Vol]123 U/LCritically koad05-446Rsi [facility] CenterComment on above:Performed By: #### BNP #### [facility] [address] [place] [address] Dr. Erasmo MenaT [Catalytic activity/Vol]28 U/VAgwqso01-89Qqd [facility] CenterComment on above:Performed By: #### BNP #### [facility] [address] [place] [address] Dr. Erasmo Malik gap [Moles/Vol]9.4 mmol/LNormalThe [facility] CenterComment on above:Performed By: #### BNP #### [facility] [address] [place] [address] Dr. Erasmo SmithAST [Catalytic activity/Vol]21 U/OAzhlfj13-87Jam [facility] CenterComment on above:Performed By: #### BNP #### [facility] [address] [place] [address] Dr. Erasmo SmithBilirubin [Mass/Vol]0.3 mg/dLNormal0.2-1.0The [facility] Comment on above:Performed By: #### BNP #### [facility] [address] [place] [address] Dr. Erasmo SmithCalcium [Mass/Vol]8.3 mg/dLCritically low8.5-10.1The [facility] CenterComment on above:Performed By: #### BNP #### [facility] [address] [place] [address] Dr. Erasmo SmithChloride [Moles/Vol]105 mmol/XHvoqcj17-180Yuc [facility] Comment on above:Performed By: #### BNP #### [facility] [address] [address] [address] Erasmo SmithCO2 [Moles/Vol]27.1 mmol/VZztsax50.0-32.0The [facility] Comment on above:Performed By: #### BNP #### [facility] [address] [address] [address] Erasmo SmithCreatinine [Mass/Vol]0.55 mg/dLNormal0.55-1.02The [facility] CenterComment on above:Performed By: #### BNP #### [facility] [address] [place] [address] Dr. Zimmerman ChangEGFR-AF PANAMANIAN>60Normal>=60The [facility] CenterComment on above:Performed By: #### BNP #### [facility] [address] [place] [address] Dr. Erasmo PattersonGFR-NON AF PANAMANIAN>60Normal>=60The [facility] CenterComment on above:Performed By: #### BNP #### [facility] [address] [place] [address] Dr. Erasmo SmithGlobulin (S) [Mass/Vol]4.0 g/dLNormalThe [facility] CenterComment on above:Performed By: #### BNP #### [facility] [address] [place] [address] Dr. Erasmo SmithGlucose [Mass/Vol]132 mg/dLCritically jqtx00-379Euq [facility] CenterComment on above:Performed By: #### BNP #### [facility] [address] [place] [address] Dr. Erasmo SmithPotassium [Moles/Vol]3.5 mmol/LNormal3.5-5.1The [facility] Comment on above:Performed By: #### BNP #### [facility] [address] [place] [address] Dr. Erasmo SmithProtein [Mass/Vol]6.6 g/dLNormal6.4-8.2The [facility] Comment on above:Performed By: #### BNP #### [facility] [address] [place] [address] Dr. Erasmo Williamum [Moles/Vol]138 mmol/LKoahmz646-929Soe [facility] Comment on above:Performed By: #### BNP #### [facility] [address] [place] [address] Dr. Erasmo Lala nitrogen [Mass/Vol]24.0 mg/dLCritically high7.0-18.0The [facility] CenterComment on above:Performed By: #### BNP #### [facility] [address] [place] [address] Dr. Erasmo Lala nitrogen/Creatinine [Mass ratio]43.6 mg/mgNormalThe [facility] CenterComment on above:Performed By: #### BNP #### [facility] [address] [place] [address] Dr. Erasmo SmithPROTIMEon [id number] Coag (PPP) [Relative time]4.41 {INR} Critically highThe [facility] CenterComment on above:Performed By: #### CMREP #### [facility] [address] [place] [address] Dr. Erasmo Simmons GUIDELINESSEE BELOWNoUniversity Hospitals Parma Medical CenterComment on above:Result Comment: DESIRED INR: 2.0 - 3.0 CONDITIONS NOT LISTED BELOW 2.5 - 3.5 FOR PROSTHETIC HEART VALVE REPLACEMENT 2.5 - 3.5 RECURRENT THROMBOSIS Performed By: #### CMREP #### [facility] [address] [place] [address] Dr. Erasmo Gordon Coag (PPP) [Time]43.0 sCritically high9.0-11.6The [facility] CenterComment on above:Performed By: #### CMREP #### [facility] [address] [place] [address] Dr. Erasmo Jain CULTURE ID PANELon 12-02-2022. baumanniiNot detectedNormal NOT DETECTEDThe [facility]ella HospitalComment on above:Performed By: #### BCID2 ####[facility] [address] [id number]. Erasmo SmithBacteriodes fragilisNot detectedNormalNOT DETECTEDTogus Va Medical CenterComment on above:Performed By: #### BCID2 ####[facility] [address]vp[address] [id number]. Yiean SmithBCID CONTROLS PASSEDSt. Rita's HospitalComment on above:Performed By: #### BCID2 ####[facility] Imfnpjpbii[address] [place], [place] [address]Dr. Yiean ChangBCIDBTHDBLOOD CULTURE BOTTLE [facility] Comment on above:Performed By: #### BCID2 ####[facility] Ezxyojiiql[address]99[address] [place], [place] [address]Dr. Yiean SmithQqxxiAOUHDZ8MACWJSVOJRDVN RESISTANCE GENESSt. Rita's HospitalComment on above:Performed By: #### BCID2 ####[facility] Myyarjrpau233[address] [place], [place] [address]Dr. Yiean SmithVselyQWGURV4KUT BELOWSt. Rita's HospitalComment on above: Result Comment: Note: Antimicrobial resitance can occur via multiple mechanisms. A Not Detected result for the Film[employer] antomicrobial resistance gene assays does not indicate antimicrobial susceptibility. Subculturing is required for species identification and susceptibility testing of isolates.Performed By: #### BCID2 ####[facility] Meqwyvnzgx5311[address] [place], [place] [address]Dr. Yiean SmithRsbwoLQQJSG3RpgydymwBrxjkyPpn [facility] HospitalComment on above: Performed By: #### BCID2 ####[facility] Zszoytishm[address] [place], [place] [address]Dr. Yilan JsrqvCBQMOO4FbabyuofIbdciaSqx [facility] HospitalComment on above:Performed By: #### BCID2 ####[facility] Wrfqwwnqww688[address] [place], [place] [address]Dr. Yiean AyobkUEIYUZ4HWKBO NormalTogus Va Medical CenterComment on above:Performed By: #### BCID2 ####[facility] [address]gary[address] [address]Dr. Yiean ChangBottle Set:Set 1NormalThe [facility] CenterComment on above:Performed By: #### BCID2 ####[facility] Pwzlcnyghy[address] [place], [place] [address]Dr. Erasmo SmithBottle:AnaerobicNormalThe [facility] CenterComment on above:Performed By: #### BCID2 ####[facility] [address]box[address] [address]Dr. Yiean ChangC. neoformans/gattiiNot detectedNormal NOT DETECTEDThe [facility] CenterComment on above:Performed By: #### BCID2 ####[facility] Staxmxmcyp017[address] [place], [place] [address]Dr. Yilan ChangCandida albicansNot detectedNormalNOT DETECTEDThe [facility] Comment on above:Performed By: #### BCID2 ####[facility] Cadbtpawnn8718[address] [place], [place] [address]Dr. Yilan ChangCandida aurisNot detected NormalNOT DETECTEDThe [facility] CenterComhenry ford hospital on above:Performed By: #### BCID2 ####[facility] Kenpmtthgp323[address] [place], [place] [address]Dr. Yilan ChangCandida glabrataNot detectedNormalNOT DETECTEDThe [facility] Comment on above:Performed By: #### BCID2 ####[facility] Dhoadmwute8633[address] [place], [place] [address]Dr. Heavenlan ChangCandida KruseiNot detected NormalNOT DETECTEDThe [facility] CenterComment on above:Performed By: #### BCID2 ####[facility] Bmxpojemla4[address] [place], [place] [address]Dr. Yilan ChangCandida ParapsilosisNot detectedNormalNOT DETECTEDThe [facility] CenterComhenry ford hospital on above:Performed By: #### BCID2 ####[facility] Rhkvjjxifg784[address] [place], [place] [address]Dr. Yilan ChangCandida TropicalisNot detectedNormalNOT DETECTEDThe [facility] CenterComhenry ford hospital on above: Performed By: #### BCID2 ####[facility] [address]rgnas[address] [address]Dr. Yilan ChangCTX-M Resistant GeneNot Applicable NormalNOT DETECTEDThe [facility] on above:Performed By: #### BCID2 ####[facility] Mfkdadviic[address] [place], [place] [address]Dr. Yilan ChangE. Cloacae complexNot detectedNormalNOT DETECTEDThe [facility] Comment on above:Performed By: #### BCID2 ####[facility] Zczcteomfi[address] [place], [place] [address]Dr. Yilan ChangE. faecalisNot detectedNormal NOT DETECTEDThe [facility] CenterComment on above:Performed By: #### BCID2 ####[facility] Lesfestgea428[address] [place], [place] [address]Dr. Yilan ChangE. faeciumNot detectedNormalNOT DETECTEDThe [facility] CenterComhenry ford hospital on above:Performed By: #### BCID2 ####[facility] Ipcufwixeq5212[address] [place], [place] [address]Dr. Yilan ChangEnterobacteriaceaeDetectedCritically abnormalNOT DETECTEDThe [facility] CenterComment on above:Performed By: #### BCID2 ####[facility] Amzjfmbhyk[address] [place], [place] [address]Dr. Yilan ChangEscherichia coliDetectedCritically abnormalNOT DETECTEDThe [facility] on above:Performed By: #### BCID2 ####[facility] Eidtancgyy0213[address] [place], [place] [address]Dr. Yilan ChangH. influenzae Not detectedNormalNOT DETECTEDThe [facility] CenterComment on above:Performed By: #### BCID2 ####[facility] Uhjgozcori9[address] [place], [place] [address]Dr. Yilan ChangIMP Resistant GeneNot ApplicableNormalNOT DETECTEDThe [facility] CenterComhenry ford hospital on above:Performed By: #### BCID2 ####[facility] Guanooxfyu9630[address] [place], [place] [address]Dr. Yilan ChangK. oxytocaNot detectedNormalNOT DETECTEDThe [facility] CenterComhenry ford hospital on above:Performed By: #### BCID2 ####[facility] Cjaikbfpvi[address] [place], [place] [address]Dr. Erasmo SmithK. pneumoniaeNot detectedNormalNOT DETECTEDThe [facility] HospitalComment on above:Performed By: #### BCID2 ####[facility] Sqlfmxwbnp0[address] [place], [place] [address]Dr. Erasmo SmithKlebsiella aerogenesNot detectedNormalNOT DETECTEDThe [facility] HospitalComment on above: Performed By: #### BCID2 ####[facility] Ghwimxfxon734[address] [place], [place] [address]Dr. Erasmo SmithKPC Resistant GeneNot detectedNormalNOT DETECTEDThe [facility] CenterComment on above:Performed By: #### BCID2 ####[facility] Vwelbcpuhm[address] [place], [place] [address]Dr. Erasmo SmithList. monocytogenesNot detectedNormalNOT DETECTEDThe [facility] CenterComhenry ford hospital on above:Performed By: #### BCID2 ####[facility] Ujddktfcaa5910[address] [place], [place] [address]Dr. Erasmo SmithMcr-1 Resistant GeneNot ApplicableNormalNOT DETECTEDThe [facility] CenterComhenry ford hospital on above:Performed By: #### BCID2 ####[facility] Vyovnvugwa[address] [place], [place] [address]Dr. Erasmo ChangmecA/CNot ApplicableNormalNOT DETECTED The [facility] CenterComhenry ford hospital on above:Performed By: #### BCID2 ####[facility] Wgiydxkdke438[address] [place], [place] [address]Dr. Erasmo Smith mecA/C MREJNot ApplicableNormalNOT DETECTEDThe [facility] CenterComhenry for[facility] hospital on above:Performed By: #### BCID2 ####[facility] Gzgeqwwyry[address] [place], [place] [address]Dr. Erasmo SmithN. meningitidisNot detectedNormalNOT DETECTEDThe [facility] CenterComhenry ford hospital on above:Performed By: #### BCID2 ####[facility] Mhohbnzrzj17[address] [place], [place] [address]Dr. Erasmo SmithNDM Resistant GeneNot ApplicableNormalNOT DETECTEDThe [facility] CenterComhenry ford hospital on above:Performed By: #### BCID2 ####[facility] [address]dmigk[address] [address]Dr. Yilan OgaamCby-10-pqrpTak ApplicableNormalNOT DETECTEDThe [facility] CenterComment on above:Performed By: #### BCID2 ####[facility] Jgqpqpoaqx90[address] [place], [place] [address]Dr. Yilan ChangProteusNot detectedNormalNOT DETECTEDThe [facility] Comment on above:Performed By: #### BCID2 ####[facility] Fvkljoqagr517[address] [place], [place] [address]Dr. Yilan LuisPseud. aeruginosaNot detected NormalNOT DETECTEDThe [facility] CenterComment on above:Performed By: #### BCID2 ####[facility] Cdjzttfyhe316[address] [place], [place] [address]Dr. Yiean ChangS. maltophiliaNot detectedNormalNOT DETECTEDThe [facility] Comment on above:Performed By: #### BCID2 ####[facility] Jrhcwqrpiw214[address] [place], [place] [address]Dr. Yilan ChangSalmonellaNot detectedNormal NOT DETECTEDThe [facility] CenterComment on above:Performed By: #### BCID2 ####[facility] Rumpfxejps20[address] [place], [place] [address]Dr. Yilan ChangSeratia marcescensNot detectedNormalNOT DETECTEDTogus Va Medical Center Comment on above:Performed By: #### BCID2 ####[facility] Jxtihqkxij198[address] [place], [place] [address]Dr. Yilan LuisSite:l acNormalThe [facility] CenterComment on above:Performed By: #### BCID2 ####[facility] Xbwjkltzdn01[address] [place], [place] [address]Dr. Yilan LuisStaph. aureus Not detectedNormalNOT DETECTEDThe [facility] CenterComment on above:Performed By: #### BCID2 ####[facility] Ndraijbbuu4[address] [place], [place] [address]Dr. Yilan ChangStaph. epidermidisNot detectedNormalNOT DETECTEDThe [facility] CenterComment on above:Performed By: #### BCID2 ####[facility] Cgvctduemg144[address] [place], [place] [address]Dr. Yilan LuisStaph. lugdunensisNot detectedNormalNOT DETECTEDThe [facility] CenterComment on above: Performed By: #### BCID2 ####[facility] Ennvffjbub[address] [place], [place] [address]Dr. Yilan ChangStaphylococcusNot detectedNormalNOT DETECTEDThe [facility] CenterComment on above:Performed By: #### BCID2 ####[facility] Bbkpfeimwb995[address] [place], [place] [address]Dr. Yilan ChangStrep. agalactiaeNot detectedNormalNOT DETECTEDThe [facility] Comment on above:Performed By: #### BCID2 ####[facility] Vgybpsbcdc97[address] [place], [place] [address]Dr. Erasmo SmithStrep. pneumoniaeNot detected NormalNOT DETECTEDThe [facility] CenterComhenry ford hospital on above:Performed By: #### BCID2 ####[facility] Bpytjlulat[address] [place], [place] [address]Dr. Yilan ChangStrep. pyogenesNot detectedNormalNOT DETECTEDThe [facility] Comment on above:Performed By: #### BCID2 ####[facility] Uhzsdznssh05[address] [place], [place] [address]Dr. Erasmo ChangStreptococcusNot detected NormalNOT DETECTEDThe [facility] CenterComhenry ford hospital on above:Performed By: #### BCID2 ####[facility] Vrysgaradh9[address] [place], [place] [address]Dr. Erasmo SmithvanA/B Resist. GeneNot detectedNormalNOT DETECTEDThe [facility] CenterComhenry ford hospital on above:Performed By: #### BCID2 ####[facility] Zsohdnb[address] [place], [place] [address]Dr. Erasmo SmithVIM Resistant GeneNot ApplicableNormalNOT DETECTEDThe [facility] CenterComhenry [facility] hospital on above: Performed By: #### BCID2 ####[facility] Jlyrlkunkk[address] [place], [place] [address]Dr. Erasmo Garcia [id number] peptide B (Bld) [Mass/Vol]1059.0 pg/mLNormal<=1,800.0The [facility] CenterComment on above:Performed By: #### BNP #### [facility] Laboratory [address] [address] [address] Erasmo FofanaC AUTO DIFFon [id number] #0.0 103/ulNormal0.0-0.1The [facility] CenterComment on above:Performed By: #### CBC ####[facility] [address] [address]Dr.Erasmo ChangBasophils/100 WBC (Bld)0.2 %Normal0.2-2.0The [facility] CenterComment on above:Performed By: #### CBC ####[facility] [address] [address]Dr.Erasmo ChangEO #0.0 103/ulNormal0.0-0.7The [facility] CenterComment on above:Performed By: #### CBC ####[facility] Sxguctckrz[address] [place], [place] [address]Dr.Erasmo ChangEosinophils/100 WBC (Bld)0.0 %Critically low0.9-7.0The [facility] CenterComment on above:Performed By: #### CBC ####[facility] [address] [address]Dr. Erasmo ChangErythrocyte distribution width (RBC) [Ratio]17.3 %Critically high 11.0-15.0The [facility] CenterComment on above:Performed By: #### CBC ####[facility] Cxvrzdrxhj[address] [place], [place] [address]Dr. Erasmo ChangHematocrit (Bld) [Volume fraction]31.4 %Critically low36.0-48.0The [facility] CenterComment on above:Performed By: #### CBC ####[facility] Liqadcyjba[address] [place], [place] [address]Dr.Erasmo ChangHemoglobin (Bld) [Mass/Vol]10.0 g/dLCritically low12.0-16.0The [facility] CenterComment on above:Performed By: #### CBC ####[facility] [address] [address]Dr.Erasmo SmithIG #0.06 10e3/ulCritically high0.00-0.03 The [facility] CenterComment on above:Performed By: #### CBC ####[facility] [address] [address]Dr.Erasmo SmithIG % 0.4 %Normal0.0-0.5The [facility] CenterComment on above:Performed By: #### CBC ####[facility] Guuttthlni[address] [place], [place] [address]Dr. Erasmo SmithLYMPH #1.3 103/ulNormal1.2-3.8The [facility] CenterComment on above: Performed By: #### CBC ####[facility] Yeubmngzvr[address] [place], [place] [address]Dr.Erasmo SmithLymphocytes/100 WBC (Bld)8.1 %Critically low20.5-60.0T[facility] Va Medical CenterComment on above:Performed By: #### CBC ####[facility] Fdfosvinsj[address] [place], [place] [address]Dr. Erasmo SmithMANUAL DIFF REQNONormalThe [facility] CenterComment on above: Performed By: #### CBC ####[facility] Rbqcokkrkl[address] [place], [place] [address]Dr.Erasmo SmithH (RBC) [Entitic mass]25.6 pg Critically low26.7-34.0The [facility] CenterComment on above:Performed By: #### CBC ####[facility] Nuaghduujn54[address] [place], [place] [address]Dr. Erasmo SmithHC (RBC) [Mass/Vol]31.8 g/lFNbeprp80.9-35.2The [facility] Comment on above:Performed By: #### CBC ####[facility] Nefmjngscv6[address] [place], [place] [address]Dr.Erasmo SmithV (RBC) [Entitic vol]80.3 fL Critically low81.0-99.0The [facility] CenterComment on above:Performed By: #### CBC ####[facility] Qwubavzpbm[address] [place], [place] [address]Dr. Erasmo SmithMONO #0.6 103/ulNormal0.3-0.8The [facility] HospitalComment on above: Performed By: #### CBC ####[facility] Yrsbgaukwg[address] [place], [place] [address]Dr.Erasmo ChangMonocytes/100 WBC (Bld)3.7 %Normal 1.7-12.0The [facility] HospitalComment on above:Performed By: #### CBC ####[facility] Avicfciuza7[address] [place], [place] [address]Dr. Erasmo SmithNEUT #14.5 103/ulCritically high1.4-6.5The [facility] HospitalComment on above:Performed By: #### CBC ####[facility] [address]lhqezmslx[address] [place], [place] [address]Dr.Erasmo ChangNeutrophils/100 WBC (Bld)87.6 % Critically high43.0-75.0The [facility] HospitalComment on above:Performed By: #### CBC ####[facility] Utiptaideh[address] [place], [place] [address]Dr. Erasmo SmithPlatelet mean volume (Bld) [Entitic vol]10.0 fLNormal9.5-13.5The [facility] HospitalComment on above:Performed By: #### CBC ####[facility] Tvsorppmde[address] [place], [place] [address]Dr.Erasmo AxdjbZSF247 103/ul Olxrpe052-109Emf [facility] HospitalComment on above:Performed By: #### CBC ####[facility] Owbpdghwow[address] [place], [place] [address]Dr. Erasmo LuisRBC3.91 106/ulCritically low4.20-5.40The [facility] CenterComment on above:Performed By: #### CBC ####[facility] Abxkjfehbs[address] [place], [place] [address]Dr.Erasmo AtyqjJBL33.5 103/ulCritically high4.0-11.0The [facility] CenterComment on above:Performed By: #### CBC ####[facility] [address] [place], [place] [address]BbKirk ChangECHOCARDIO M/2D COMPLETEon [id number] M/2D COMPLETEPatient: BREANN STARKS Exam Date: 12/02/2022 : 1945 Gender:F Ordering : KAYLEY HOLMAN . Admission #: [id number] Family : DR LUISANA JOHNSON . Order #: [id number] CLICK HERE TO VIEW EXAM ECHOCARDIOGRAM REPORT [...] by: Sakina Salazar M.D. on 12/02/2022 at 21:58NoalThThe Jewish HospitalMAGNESIUMon 38-80-6855Eyweocboa [Mass/Vol]2.0 mg/dLNormal1.8-2.4The [facility] CenterComment on above:Performed By: #### BNP #### [facility] Laboratory [address] [place] [address] [address] Erasmo Zimmer 14(COMP METB)on 96-68-8728Tcqjrsd [Mass/Vol]2.7 g/dL Critically low3.4-5.0[facility] Va Medical CenterComment on above:Performed By: #### BNP #### [facility] [address] [place] [address] Dr. Erasmo SmithAlbumin/Globulin [Mass ratio]0.6 {ratio}NormalThe [facility] CenterComment on above:Performed By: #### BNP #### [facility] [address] [place] [address] Dr. Erasmo MenaP [Catalytic activity/Vol]128 U/LCritically jakd65-647Fja [facility] CenterComment on above:Performed By: #### BNP #### [facility] [address] [place] [address] Dr. Erasmo MenaT [Catalytic activity/Vol]34 U/JBqiaqr49-62Ycw [facility] CenterComment on above:Performed By: #### BNP #### [facility] [address] [place] [address] Dr. Erasmo Naikon gap [Moles/Vol]10.6 mmol/LNormalThe [facility] Comment on above:Performed By: #### BNP #### [facility] [address] [place] [address] Dr. Erasmo SmithAST [Catalytic activity/Vol]27 U/XSxdhzf80-82Zzw [facility] CenterComment on above:Performed By: #### BNP #### [facility] [address] [place] [address] Dr. Erasmo SmithBilirubin [Mass/Vol]0.5 mg/dLNormal0.2-1.0The [facility] Comment on above:Performed By: #### BNP #### [facility] [address] [place] [address] Dr. Erasmo SmithCalcium [Mass/Vol]8.4 mg/dLCritically low8.5-10.1The [facility] CenterComment on above:Performed By: #### BNP #### [facility] [address] [place] [address] Dr. Erasmo SmithChloride [Moles/Vol]104 mmol/YVmwlbc51-263Gjv [facility] Comment on above:Performed By: #### BNP #### [facility] [address] [place] [address] Dr. Erasmo SmithCO2 [Moles/Vol]26.2 mmol/SRkfkex05.0-32.0The [facility] Comment on above:Performed By: #### BNP #### [facility] [address] [place] [address] Dr. Erasmo Harrisatinine [Mass/Vol]0.52 mg/dLCritically low0.55-1.02The [facility] CenterComment on above:Performed By: #### BNP #### [facility] [address] [address] [address] Erasmo PattersonGFR-AF PANAMANIAN>60Normal>=60The [facility] CenterComment on above:Performed By: #### BNP #### [facility] [address] [place] [address] Dr. Erasmo PattersonGFR-NON AF PANAMANIAN>60Normal>=60The [facility] CenterComment on above:Performed By: #### BNP #### [facility] [address] [place] [address] Dr. Erasmo SmithGlobulin (S) [Mass/Vol]4.3 g/dLNormalThe [facility] CenterComment on above:Performed By: #### BNP #### [facility] [address] [place] [address] Dr. Erasmo SmithGlucose [Mass/Vol]135 mg/dLCritically effi66-244Aak [facility] CenterComment on above:Performed By: #### BNP #### [facility] [address] [place] [address] Dr. Erasmo SmithPotassium [Moles/Vol]3.8 mmol/LNormal3.5-5.1The [facility] Comment on above:Performed By: #### BNP #### [facility] [address] [place] [address] Dr. Erasmo SmithProtein [Mass/Vol]7.0 g/dLNormal6.4-8.2The [facility] Comment on above:Performed By: #### BNP #### [facility] [address] [place] [address] Dr. Erasmo SmithSodium [Moles/Vol]137 mmol/AXtaysy321-013Gsg [facility] Comment on above:Performed By: #### BNP #### [facility] [address] [address] [address] Erasmo Lala nitrogen [Mass/Vol]16.0 mg/dLNormal7.0-18.0T[facility] Va Medical CenterComment on above:Performed By: #### BNP #### [facility] [address] [address] [address] Erasmo Lala nitrogen/Creatinine [Mass ratio]30.8 mg/mgNoUniversity Hospitals Parma Medical CenterComment on above:Performed By: #### BNP #### [facility] [address] [address] [address] Erasmo SmithPROTIMEon [id number] Coag (PPP) [Relative time]4.39 {INR} Critically highTogus Va Medical CenterComment on above:Performed By: #### PT #### [facility] [address] [place] [address] Dr. Erasmo Simmons GUIDELINESSEE BELOWSt. Rita's HospitalComment on above:Result Comment: DESIRED INR: 2.0 - 3.0 CONDITIONS NOT LISTED BELOW 2.5 - 3.5 FOR PROSTHETIC HEART VALVE REPLACEMENT 2.5 - 3.5 RECURRENT THROMBOSIS Performed By: #### PT #### [facility] [address] [place] [address] Dr. Erasmo SmithPT Coag (PPP) [Time]42.8 sCritically high9.0-11.6The [facility] CenterComment on above:Performed By: #### PT #### [facility] [address] [place] [address] Dr. Erasmo SmithUA RANDOM W/MICROSCOPICon [id number] SEENNormalNONE SEENTogus Va Medical CenterComment on above:Performed By: #### UAMIC ####[facility] [address] [address]Dr. Erasmo Smith Bilirubin Ql (U)NegativeNormalNEGATIVETogus Va Medical CenterComment on above: Performed By: #### UAMIC ####[facility] [address]mdueqn[address] [place], [place] [address]Dr. Yilan ChangCASTNONE SEENNormalNONE SEENTogus Va Medical CenterComment on above:Performed By: #### UAMIC ####[facility] U[address]ovndsehj[address] [place], [place] [address]Dr. Yilan ChangClarity (U) CLEARNormalCLEARTogus Va Medical CenterComment on above:Performed By: #### UAMIC ####[facility] Jymoxpaazd[address] [place], [place] [address]Dr. Yilan ChangColor (U)YELLOWNormalYELLOWTogus Va Medical CenterComment on above: Performed By: #### UAMIC ####[facility] Cqiihyjwhs[address] [place], [place] [address]Dr. Yilan ChangCrystals LM Nom (Urine sed)NONE SEEN NormalNONE SEENTogus Va Medical CenterComment on above:Performed By: #### UAMIC ####[facility] [address]blusfodpu[address] [place], [place] [address]Dr. Yilan ChangEpithelial cells LM Ql (Urine sed)RARENormalNONE SEEN /RARETogus Va Medical CenterComment on above:Performed By: #### UAMIC ####[facility] [address]thighkkgc[address] [place], [place] [address]Dr. Yilan ChangGlucose Ql (U)NegativeNormalNEGATIVETogus Va Medical CenterComment on above:Performed By: #### UAMIC ####[facility] [address]ktvmi[address] [place], [place] [address]Dr. Heavenlan ChangHemoglobin Ql (U)SMALLAbnormalNEGATIVETogus Va Medical Center Comment on above:Performed By: #### UAMIC ####[facility] [address]pozzfpel[address] [place], [place] [address]Dr. Yilan ChangKetones Ql (U)15 mg/dl AbnormalNEGATIVETogus Va Medical CenterComment on above:Performed By: #### UAMIC ####[facility] [address]soxez[address] [place], [place] [address]Dr. Yilan ChangLEUKOCYTESNegativeNormalNEGATIVETogus Va Medical CenterComment on above:Performed By: #### UAMIC ####[facility] [address] [address]Dr. Yilan ChangMUCOUSNONE SEENNormalNONE SEENThe [facility] CenterComment on above:Performed By: #### UAMIC ####[facility] [address]wpaxadlo[address] [place], [place] [address]Dr. Yilan ChangNitrite Ql (U)NegativeNormalNEGATIVEThe [facility] CenterComment on above:Performed By: #### UAMIC ####[facility] Gtpgrndrmi[address] [place], [place] [address]Dr. Yilan ChangpH (U)6.0 [pH]Normal5-9The [facility] CenterComment on above:Performed By: #### UAMIC ####[facility] Bruspdgksd[address] [place], [place] [address]Dr. Yilan TbybbVFK2-7Sxsofa9-8Cau [facility] Comment on above:Performed By: #### UAMIC ####[facility] Rcjjufmbxg[address] [place], [place] [address]Dr. Yilan ChangSPEC GRAVITY1.025Normal 1.005-<=1.025The [facility] CenterComment on above:Performed By: #### UAMIC ####[facility] [address]cvmkqithw[address] [place], [place] [address]Dr. Yilan ChangUA PROTEINTRACENormalNEGATIVE/ TRACEThe [facility] CenterComment on above:Performed By: #### UAMIC ####[facility] [address]ytlttatct[address] [place], [place] [address]Dr. Yilan ChangUrobilinogen Qn (U)4 {Shraddha'U}/dL Abnormal0.2 - 1.0The [facility] CenterComment on above:Performed By: #### UAMIC ####[facility] [address]nebgbnmtp[address] [place], [place] [address]Dr. Yilan ChangWBC0-2AbnormalNONE SEENThe [facility] CenterComment on above: Performed By: #### UAMIC ####[facility] Dbcjrhwcmm[address] [place], [place] [address]Dr. Erasmo Huff ROSA ELENA 3-6on 89-50-5853VX [Catalytic activity/Vol]53 U/ITvlrtz00-761PmnTogus Va Medical CenterComment on above: Performed By: #### CMREP #### [facility] [address] [place] [address] Dr. Erasmo Tejada.MB [Mass/Vol]0.90 ng/mLNormal<=3.60[facility] Comment on above:Performed By: #### CMREP #### [facility] [address] [place] [address] Dr. Erasmo Kennedy116.7 pg/mLCritically high4.0-51.3TPomerene Hospital Comment on above:Result Comment: CUT-OFF POINTS HAVE BEEN ESTABLISHED BASED ON THE FOURTH UNIVERSAL DEFINITIONS OF MYOCARDIAL INFARCTION. THE UPPER REFERENCE LIMIT (URL) OF TROPONIN, DEFINED THE 99TH PERCENTILE OF cTnI DISTRIBUTION IN A REFERENCE POPULATION, HAS BEEN CONFIRMED THE DECISION THRESHOLD FOR OK DIAGNOSIS.Performed By: #### CMREP #### [facility] [address] [place] [address] Dr. Erasmo Tejada [Catalytic activity/Vol]47 U/BJnbgmt27-516HvdTogus Va Medical CenterComment on above:Performed By: #### BNP #### [facility] [address] [place] [address] Dr. Erasmo Tejada.MB [Mass/Vol]1.00 ng/mLNormal<=3.60[facility] Comment on above:Performed By: #### BNP #### [facility] [address] [place] [address] Dr. Erasmo Kennedy154.3 pg/mLCritically high4.0-51.3TPomerene Hospital Comment on above:Result Comment: CUT-OFF POINTS HAVE BEEN ESTABLISHED BASED ON THE FOURTH UNIVERSAL DEFINITIONS OF MYOCARDIAL INFARCTION. THE UPPER REFERENCE LIMIT (URL) OF TROPONIN, DEFINED THE 99TH PERCENTILE OF cTnI DISTRIBUTION IN A REFERENCE POPULATION, HAS BEEN CONFIRMED THE DECISION THRESHOLD FOR OK DIAGNOSIS.Performed By: #### BNP #### [facility] [address] [place] [address] Dr. Erasmo Jerome W MANUAL DIFFon [id number] LYMPH #NormalThe [facility]ella HospitalComment on above:Performed By: #### MARY #### [facility] [address] [address] [address] Erasmo SmithATYPICAL LYMPH %NormalThe [facility]ella HospitalComment on above: Performed By: #### MARY #### [facility] [address] [address] [address] Erasmo Mathur #0.6 103/ulCritically high0.0-0.3The [facility] Comment on above:Performed By: #### MARY #### [facility] [address] [address] [address] Erasmo Mathur %3 %Normal0-5The [facility] HospitalComment on above:Performed By: #### MARY #### [facility] [address] [place] [address] Dr. Erasmo Garnica #0.00 103/ulNormal0.00-0.10The [facility] CenterComment on above:Performed By: #### MARY #### [facility] [address] [address] [address] Erasmo Garnica %0.0 %Critically low0.2-2.0The [facility] CenterComment on above:Performed By: #### MARY #### [facility] [address] [place] [address] Dr. Erasmo Chen #NormalThe [facility]ella HospitalComment on above:Performed By: #### MARY #### [facility] [address] [place] [address] Dr. Erasmo Chen %NormalTrinity Health System West Campus HospitalComment on above:Performed By: #### MARY #### [facility] [address] [place] [address] Dr. Erasmo ArellanoRRECTED WBCNormal4.0-11.0The [facility] HospitalComment on above: Performed By: #### MARY #### [facility] [address] [place] [address] Dr. Erasmo Ashton #0.19 103/ulNormal0.00-0.70The [facility] CenterComment on above:Performed By: #### MARY #### [facility] [address] [place] [address] Dr. Erasmo Ashton%1.0 %Normal0.9-7.0The [facility] CenterComment on above: Performed By: #### MARY #### [facility] [address] [address] [address] Erasmo LugoT32.7 %Critically low36.0-48.0The [facility] CenterComment on above:Performed By: #### MARY #### [facility] [address] [place] [address] Dr. Erasmo SmithHGB10.5 g/dlCritically low12.0-16.0The [facility] CenterComment on above:Performed By: #### MARY #### [facility] [address] [place] [address] Dr. Erasmo Nayak #0.76 103/ulCritically low1.20-3.80The [facility] Comment on above:Performed By: #### MARY #### [facility] [address] [place] [address] Dr. Erasmo Nayak%4.0 %Critically low20.5-60.0The [facility] CenterComment on above:Performed By: #### MARY #### [facility] [address] [place] [address] Dr. Erasmo SmithMCH25.9 pgCritically low26.7-34.0The [facility] CenterComment on above:Performed By: #### MARY #### [facility] [address] [place] [address] Dr. Erasmo ReedHC32.1 g/bwGhvgab47.9-35.2The [facility] CenterComment on above:Performed By: #### MARY #### [facility] [address] [place] [address] Dr. Erasmo ReedV80.5 fLCritically low81.0-99.0The [facility] CenterComment on above:Performed By: #### MARY #### [facility] [address] [address] [address] Erasmo EldridgeOCYTE #NormalThe [facility]ella HospitalComment on above: Performed By: #### MARY #### [facility] [address] [address] [address] Erasmo EldridgeOCYTE %NormalTrinity Health System West Campus HospitalComment on above: Performed By: #### MARY #### [facility] [address] [address] [address] Erasmo Ramos#1.14 103/ulCritically high0.30-0.80The [facility] on above:Performed By: #### MARY #### [facility] [address] [address] [address] Erasmo Ramos%6.0 %Normal1.7-12.0The [facility] CenterComment on above: Performed By: #### MARY #### [facility] [address] [address] [address] Erasmo SmithMPV9.4 fLCritically low9.5-13.5ThThe Jewish HospitalComment on above:Performed By: #### MARY #### [facility] [address] [place] [address] Dr. Erasmo Kapoor #NormalTogus Va Medical CenterComment on above:Performed By: #### MARY #### [facility] [address] [address] [address] Erasmo Kapoor %NormalTogus Va Medical CenterComment on above:Performed By: #### CBCBLAISE #### [facility] [address] [address] [address] Erasmo SmithNRBCNormalThThe Jewish HospitalComment on above:Performed By: #### CBCBLAISE #### [facility] [address] [address] [address] Erasmo SmithPLT195 103/oxLinufb102-702Xhd [facility] CenterComment on above: Performed By: #### CBCBLAISE #### [facility] [address] [place], [place] [address] Dr. Erasmo SmithRBC4.06 106/ulCritically low4.20-5.40The [facility] CenterComment on above:Performed By: #### CBCBLAISE #### [facility] [address] [place], [place] [address] Dr. Erasmo SmithRDW17.7 %Critically high11.0-15.0The [facility] CenterComment on above:Performed By: #### CBCBLAISE #### [facility] [address] [place], [place] [address] Dr. Erasmo Nelson #16.34 103/ulCritically high1.40-6.50The [facility] Comment on above:Performed By: #### CBCBLAISE #### [facility] [address] [address] [address] Erasmo Nelson %86.0 %Critically high43.0-75.0The [facility] CenterComment on above:Performed By: #### CBCBLAISE #### [facility] [address] [place], [place] [address] Dr. Erasmo SmithWBC19.0 103/ulCritically high4.0-11.0The [facility] CenterComment on above:Performed By: #### CBCBLAISE #### [facility] [address] [place], [place] [address] Dr. Erasom Hurtado HEAD WO CONon [id number] HEAD WO CONCT HEAD WO CON 2022 1:15 PM EDT [...] pathology. Electronically authenticated by: SALOME Maki: 2022 14:50Normal The [facility] CenterCULTURE BLOODon 08-74-1734Yxmuprnxgwz examination of blood, cultureCulture Observations: Aerobic and Anaerobic bottle positive. BCID: E. Coli Culture Observations: Refer to for VIOLET. Isolate 1 Escherichia coli Growth ofSt. Rita's HospitalComment on above:Performed By: #### BLDCX2 ####[facility] [address] [id number] SmithCovid-19 PCR (CVDTB)on 76-08-3098ZNPY-CoV-2 (COVID-19) RNA EMILY+probe Ql (Unsp spec)Not detectedNormalNOT DETECTEDThe [facility] on above:Result Comment: When diagnostic testing is negative, the [...] for this test is supported by the Community Health Promoter of Health and Human Service's declaration that circumstances exist to justify the emergency use of in vitro diagnostics for the detection and/or diagnosis of the virus that causes COVID-19. This EUA will remain in effect for the duration of the COVID-19 declaration justifying emergency of IVDs, unless it is terminated or revoked by the FDA (after which the test may no longer be used).Performed By: #### CMREP #### [facility] [address] [place], [place] [address] Dr. Erasmo SmithLACTATE/LACTIC ACIDon 48-00-3851Wvhzcvy [Moles/Vol]1.2 mmol/L Normal0.4-2.0The [facility] on above:Performed By: #### LACT ####[facility] [address] [id number]. Erasmo SmithPH VENOUS BLOODon 49-63-5923HJQ0 LMECBH81.8 mmHgCritically low 40.0-52.0The [facility] CenterComment on above:Performed By: #### PHVEN ####[facility] [address] [address]Dr. Yiean ChangpH VENOUS7.629Izwosu7.330-7.430The [facility] CenterComment on above: Performed By: #### PHVEN ####[facility] [address] [address]Dr. Yilan ChangPROF 14(COMP METB)on 50-41-7871Hhteagf [Mass/Vol]3.1 g/dLCritically low3.4-5.0The [facility] CenterComment on above: Performed By: #### SERA, CMP ####[facility] B[address] [place], [place] [address]r. Heavenlan ChangAlbumin/Globulin [Mass ratio]0.8 {ratio} NormalThe [facility] CenterComment on above:Performed By: #### SERA, CMP ####[facility] Qsfgtmonni[address] [place], [place] [address]r. Heavenlan ChangALP [Catalytic activity/Vol]194 U/LCritically xumh21-936Eli [facility] CenterComment on above:Performed By: #### SERA, CMP ####[facility] [address] [address]Dr. Heavenlan ChangALT [Catalytic activity/Vol]37 U/KYkpyic93-66Xgs [facility] CenterComment on above:Performed By: #### HSTRSELVIN, CMP ####[facility] [address] [address]Dr. Heavenlan ChangAnion gap [Moles/Vol]14.6 mmol/LNormal The [facility] CenterComment on above:Performed By: #### HSTROPMiladis, CMP ####[facility] Idir[address]of[address] [place], [place] [address]r. Yilan ChangAST [Catalytic activity/Vol]32 U/AWchwua48-09Qcr [facility] Comment on above:Performed By: #### RUTHOPMiladis, CMP ####[facility] [address] [place], [place] [address]Dr. Yilan ChangBilirubin [Mass/Vol]1.0 mg/dLNormal0.2-1.0The [facility] CenterComment on above:Performed By: #### HSTRSEVLIN, CMP ####[facility] [address] [place], [place] [address]Dr. Yilan ChangCalcium [Mass/Vol]8.9 mg/dLNormal 8.5-10.1The [facility] CenterComment on above:Performed By: #### HSTRSELVIN, CMP ####[facility] Ac[address]cot[address] [place], [place] [address]Dr. Yilan ChangChloride [Moles/Vol]103 mmol/KYrmwzx86-265Mws [facility] Comment on above:Performed By: #### HSTRSELVIN, CMP ####[facility] Ispyz[address] [place], [place] [address]Dr. Yilan ChangCO2 [Moles/Vol] 23.6 mmol/MAhclxb11.0-32.0The [facility] CenterComment on above:Performed By: #### HSTRSELVIN, CMP ####[facility] [address] [place], [place] [address]Dr. Yilan ChangCreatinine [Mass/Vol]0.69 mg/dLNormal0.55-1.02The [facility] CenterComment on above:Performed By: #### HSTRSELVIN, CMP ####[facility] T[address] [place], [place] [address]Dr. Yilan ChangEGFR- AF PANAMANIAN>60Normal>=60The [facility] CenterComment on above:Performed By: #### HSTROPMiladis, CMP ####[facility] [address]slqim[address] [place], [place] [address]Dr. Yilan ChangEGFR-NON AF PANAMANIAN>60Normal>=60The [facility] Comment on above:Performed By: #### HSTROPMiladis, CMP ####[facility] [address] [place], [place]Dr. Yilan ChangGlobulin (S) [Mass/Vol]4.1 g/dLNormThe MetroHealth SystemComment on above:Performed By: #### HSTROPMiladis, CMP ####[facility] [address] [place], [place]Dr. Yilan ChangGlucose [Mass/Vol]121 mg/dLCritically toch57-412Xlc [facility] CenterComment on above:Performed By: #### HSTROPN, CMP ####[facility] [address] [place], [place]Dr. Yilan Smith Potassium [Moles/Vol]3.2 mmol/LCritically low3.5-5.1The [facility] CenterComment on above:Performed By: #### HSTRSELVIN, CMP ####[facility] [address] [place], [place] [address]Dr. Yilan ChangProtein [Mass/Vol]7.2 g/dL Normal6.4-8.2The [facility] CenterComment on above:Performed By: #### HSTROPMiladis, CMP ####[facility] [address] [place], [place] [address]. Yilan ChangSodium [Moles/Vol]138 mmol/IMansbb500-438Ygz [facility] CenterComment on above:Performed By: #### HSTROPN, CMP ####[facility] [address] [place], [place]Dr. Yilan ChangUrea nitrogen [Mass/Vol]17.0 mg/dLNormal7.0-18.0The [facility] CenterComment on above:Performed By: #### HSTROPN, CMP ####[facility] [address] [place], [place] [address]Ai. Yilan ChangUrea nitrogen/Creatinine [Mass ratio]24.6 mg/mgNoUniversity Hospitals Parma Medical CenterComment on above:Performed By: #### HSTROPN, CMP ####[facility] [address] [place], [place] [address]Dr. Yilan Smith PROTIMEon 87-52-7959LFF Coag (PPP) [Relative time]3.58 {INR}NormalThe [facility] CenterComment on above:Performed By: #### PT, PTT #### [facility] Laboratory [address] [place] [address] Dr. Erasmo Simmons GUIDELINESSEE BELOWNormalThThe Jewish HospitalComment on above:Result Comment: DESIRED INR: 2.0 - 3.0 CONDITIONS NOT LISTED BELOW 2.5 - 3.5 FOR PROSTHETIC HEART VALVE REPLACEMENT 2.5 - 3.5 RECURRENT THROMBOSIS Performed By: #### PT, PTT #### [facility] [address] [place] [address] Dr. Erasmo SmithPT Coag (PPP) [Time]35.3 sCritically high9.0-11.6The [facility] CenterComment on above:Performed By: #### PT, PTT #### [facility] [address] [place] [address] Dr. Erasmo Cruz 16-59-1705rBHN Coag (Bld) [Time]40.3 sCritically high 22.3-36.2[facility] Va Medical CenterComment on above:Performed By: #### PT, PTT #### [facility] [address] [place] [address] Dr. Erasmo Kc, HIGH SENSITIVITYon 89-56-1916BYLVXE082.7 pg/mL Critically high4.0-51.3TPomerene HospitalComment on above:Result Comment: CUT-OFF POINTS HAVE BEEN ESTABLISHED BASED ON THE FOURTH UNIVERSAL DEFINITIONS OF MYOCARDIAL INFARCTION. THE UPPER REFERENCE LIMIT (URL) OF TROPONIN, DEFINED THE 99TH PERCENTILE OF cTnI DISTRIBUTION IN A REFERENCE POPULATION, HAS BEEN CONFIRMED THE DECISION THRESHOLD FOR OK DIAGNOSIS.Performed By: #### CMREP #### [facility] [address] [place] [address] Dr. Erasmo SmithHSTROP218.0 pg/mLCritically high4.0-51.3TPomerene Hospital Comment on above:Result Comment: CUT-OFF POINTS HAVE BEEN ESTABLISHED BASED ON THE FOURTH UNIVERSAL DEFINITIONS OF MYOCARDIAL INFARCTION. THE UPPER REFERENCE LIMIT (URL) OF TROPONIN, DEFINED THE 99TH PERCENTILE OF cTnI DISTRIBUTION IN A REFERENCE POPULATION, HAS BEEN CONFIRMED THE DECISION THRESHOLD FOR OK DIAGNOSIS.Performed By: #### BNP #### [facility] [address] [place], [place] [address] Dr. Erasmo SmithXR CHEST 1 Von 25-80-2347UE CHEST 1 VEXAMINATION: XR CHEST 1 V HISTORY: COUGH COMPARISON: [...] No acute disease. Electronically authenticated by: HONG VILLARREAL Date: 2022 14:[address] [place] [address] MAMM SCREEN 3D TOÑITO CADon [id number] MAMM SCREEN 3D TOÑITO CAD Patient: BREANN STARKS Exam Date: 11/26/2022 : 1945 Gender:F Ordering : DR LUISANA JOHNSON . Admission #: [id number] Family : Order #: [id number] CLICK HERE TO VIEW EXAM RADIOLOGY REPORT [...] Family Cancers None LOCATION: [facility] BREAST COMPOSITION: Heterogeneously dense,which may [...] by: Paula Brown M.D. on 11/26/2022 at 14:13St. [facility] HospitalPROF 14(COMP METB)on 55-29-7086Cmdozyc [Mass/Vol]3.8 g/dLNormal3.4-5.0 The [facility] CenterComment on above:Performed By: #### CMREP #### [facility] [address] [place] [address] Dr. Erasmo SmithAlbumin/Globulin [Mass ratio]0.8 {ratio}NormalThe [facility] CenterComment on above:Performed By: #### CMREP #### [facility] [address] [place] [address] Dr. Erasmo MenaP [Catalytic activity/Vol]102 U/OFnuoir43-144Gkv [facility] CenterComment on above:Performed By: #### CMREP #### [facility] [address] [place] [address] Dr. Erasmo Gaines [Catalytic activity/Vol]47 U/APyzpbu39-09Woh [facility] CenterComment on above:Performed By: #### CMREP #### [facility] [address] [place] [address] Dr. Erasmo Malik gap [Moles/Vol]12.5 mmol/LNormalTogus Va Medical Center Comment on above:Performed By: #### CMREP #### [facility] [address] [place] [address] Dr. Erasmo SmithAST [Catalytic activity/Vol]36 U/WEavzrp05-43Frk [facility] CenterComment on above:Performed By: #### CMREP #### [facility] [address] [place] [address] Dr. Erasmo SmithBilirubin [Mass/Vol]0.3 mg/dLNormal0.2-1.0The [facility] Comment on above:Performed By: #### CMREP #### [facility] [address] [place] [address] Dr. Erasmo SmithCalcium [Mass/Vol]8.9 mg/dLNormal8.5-10.1The [facility] Comment on above:Performed By: #### CMREP #### [facility] [address] [place] [address] Dr. Erasmo SmithChloride [Moles/Vol]106 mmol/VXcdlie04-952Xtt [facility] Comment on above:Performed By: #### CMREP #### [facility] [address] [place] [address] Dr. Erasmo SmithCO2 [Moles/Vol]26.9 mmol/FOcjyzo87.0-32.0The [facility] Comment on above:Performed By: #### CMREP #### [facility] [address] [place] [address] Dr. Erasmo SmithCreatinine [Mass/Vol]0.79 mg/dLNormal0.55-1.02The [facility] CenterComment on above:Performed By: #### CMREP #### [facility] [address] [place] [address] Dr. Erasmo PattersonGFR-AF PANAMANIAN>60Normal>=60The [facility] CenterComment on above:Performed By: #### CMREP #### [facility] [address] [place] [address] Dr. Erasmo PattersonGFR-NON AF PANAMANIAN>60Normal>=60The [facility] CenterComment on above:Performed By: #### CMREP #### [facility] [address] [place] [address] Dr. Erasmo SmithGlobulin (S) [Mass/Vol]4.6 g/dLNormalThe [facility] CenterComment on above:Performed By: #### CMREP #### [facility] [address] [place] [address] Dr. Erasmo SmithGlucose [Mass/Vol]102 mg/sQMrytpc77-967Uol [facility] Comment on above:Performed By: #### CMREP #### [facility] [address] [place] [address] Dr. Erasmo SmithPotassium [Moles/Vol]4.4 mmol/LNormal3.5-5.1The [facility] Comment on above:Performed By: #### CMREP #### [facility] [address] [place] [address] Dr. Erasmo SmithProtein [Mass/Vol]8.4 g/dLCritically high6.4-8.2The [facility] CenterComment on above:Performed By: #### CMREP #### [facility] [address] [place] [address] Dr. Erasmo Williamum [Moles/Vol]141 mmol/LOcwouv829-815Htg [facility] Comment on above:Performed By: #### CMREP #### [facility] [address] [place] [address] Dr. Erasmo Lala nitrogen [Mass/Vol]28.0 mg/dLCritically high7.0-18.0The [facility] CenterComment on above:Performed By: #### CMREP #### [facility] [address] [place] [address] Dr. Erasmo Lala nitrogen/Creatinine [Mass ratio]35.4 mg/mgNormalThe [facility] CenterComment on above:Performed By: #### CMREP #### [facility] [address] [place] [address] Dr. Erasmo Jerome AUTO DIFFon 26-84-7314CLSQ #0.1 103/ulNormal0.0-0.1The [facility] CenterComment on above:Performed By: #### BNP #### [facility] [address] [place] [address] Dr. Erasmo SmithBabernicephils/100 WBC (Bld)0.5 %Normal0.2-2.0The [facility] Comment on above:Performed By: #### BNP #### [facility] [address] [place] [address] Dr. Erasmo Baxter #0.2 103/ulNormal0.0-0.7The [facility] CenterComment on above: Performed By: #### BNP #### [facility] [address] [place] [address] Dr. Erasmo Pattersonosinophils/100 WBC (Bld)2.5 %Normal0.9-7.0The [facility] Comment on above:Performed By: #### BNP #### [facility] [address] [place] [address] Dr. Erasmo Pattersonrythrocyte distribution width (RBC) [Ratio]17.2 %Critically high 11.0-15.0The [facility] CenterComment on above:Performed By: #### BNP #### [facility] [address] [place] [address] Dr. Erasmo SmithHematocrit (Bld) [Volume fraction]35.0 %Critically low36.0-48.0 The [facility] CenterComment on above:Performed By: #### BNP #### [facility] [address] [place] [address] Dr. Erasmo SmithHemoglobin (Bld) [Mass/Vol]11.3 g/dLCritically low12.0-16.0The [facility] CenterComment on above:Performed By: #### BNP #### [facility] [address] [place] [address] Dr. Erasmo Spring #0.02 10e3/ulNormal0.00-0.03The [facility] CenterComment on above:Performed By: #### BNP #### [facility] [address] [place] [address] Dr. Erasmo SmithIG %0.2 %Normal0.0-0.5The [facility] CenterComment on above: Performed By: #### BNP #### [facility] [address] [place] [address] Dr. Erasmo PaceMPH #2.3 103/ulNormal1.2-3.8The [facility] CenterComment on above:Performed By: #### BNP #### [facility] [address] [place] [address] Dr. Erasmo Pacemphocytes/100 WBC (Bld)25.4 %Ckwrxi79.5-60.0The [facility] CenterComment on above:Performed By: #### BNP #### [facility] [address] [place] [address] Dr. Erasmo Méndez DIFF REQNONormalThe [facility] CenterComment on above: Performed By: #### BNP #### [facility] [address] [place] [address] Dr. Erasmo Reed (RBC) [Entitic mass]25.5 pgCritically low26.7-34.0The [facility] CenterComment on above:Performed By: #### BNP #### [facility] [address] [place] [address] Dr. Erasmo Reed (RBC) [Mass/Vol]32.3 g/wROuirjp88.9-35.2The [facility] CenterComment on above:Performed By: #### BNP #### [facility] [address] [place] [address] Dr. Erasmo Reed (RBC) [Entitic vol]78.8 fLCritically low81.0-99.0The [facility] CenterComment on above:Performed By: #### BNP #### [facility] [address] [place] [address] Dr. Erasmo Stanley #0.7 103/ulNormal0.3-0.8The [facility] CenterComment on above:Performed By: #### BNP #### [facility] [address] [place] [address] Dr. Erasmo Guidryocytes/100 WBC (Bld)7.5 %Normal1.7-12.0The [facility] Comment on above:Performed By: #### BNP #### [facility] [address] [place] [address] Dr. Erasmo Foster #5.9 103/ulNormal1.4-6.5The [facility] CenterComment on above:Performed By: #### BNP #### [facility] [address] [place] [address] Dr. Erasmo Husainutrophils/100 WBC (Bld)63.9 %Cwyseq10.0-75.0The [facility] CenterComment on above:Performed By: #### BNP #### [facility] [address] [address] [address] Erasmo SmithPlatelet mean volume (Bld) [Entitic vol]9.0 fLCritically low 9.5-13.5The [facility] CenterComment on above:Performed By: #### BNP #### [facility] [address] [place] [address] Dr. Erasmo SmithPLT305 103/hrLasbhl671-198Czb [facility] CenterComment on above: Performed By: #### BNP #### [facility] [address] [address] [address] Erasmo SmithRBC4.44 106/ulNormal4.20-5.40The [facility] CenterComment on above:Performed By: #### BNP #### [facility] [address] [place] [address] Dr. Erasmo SmithWBC9.2 103/ulNormal4.0-11.0The [facility] CenterComment on above: Performed By: #### BNP #### [facility] [address] [place] [address] Dr. Erasmo SmithCT CHEST WO CONon 26-69-8160NK CHEST WO CONEXAMINATION: CT CHEST WO CON HISTORY: Lung field [...] Electronically authenticated by: PAULA BROWN Date: 2022-05-27 15:27[facility]'s HospitalHEMOGLOBINon 95-03-6233Yeqzcqewxd (Bld) [Mass/Vol]10.6 g/dL Critically low12.0-16.0[facility] Va Medical CenterComment on above:Performed By: #### HGB ####[facility] [address] [address]Dr. Erasmo SmithCULTURE SPUTUMon 40-76-9060YBFNANV SPUTUMIsolate 1 Pseudomonas aeruginosa Light growth of ORGANISM 1 Pseudomonas aeruginosa ANTIBIOTIC M.I.C RX STATUS Piperacillin/Tazobactam 8 S F Ceftazidime 2 S F Imipenem 1 S F Amikacin <=2 S F Gentamicin <=1 S F Tobramycin <=1 S F Ciprofloxacin <=0.25 S F Levofloxacin 0.25 S FNormalThe [facility] CenterComment on above:Performed By: #### SPUTCX ####[facility] [address] [place], [place] [address]Dr. Erasmo SmithCYTOLOGYon 14-54-7474OLGW TO REF LAB03/31/22[facility]'s HospitalComment on above:Performed By: #### CYTO #### [facility] [address] [place] [address] Dr. Erasmo Castle GRAM STAINon 09-61-7704TOFGTMUYBxqlrkJof [facility] Comment on above:Performed By: #### BNP #### [facility] [address] [place] [address] Dr. Erasmo MolinaPHTHEROIDSSt. Rita's HospitalComment on above:Performed By: #### BNP #### [facility] [address] [place] [address] Dr. Zimmerman ChangEPITHELIALS<25St. Rita's HospitalComment on above: Performed By: #### BNP #### [facility] [facility] [address] [place] [address] Dr. Yilan ChangFUNGAL ELEMENTSSt. Rita's HospitalComment on above: Performed By: #### BNP #### [facility] [address] [address] [address] Erasmo Rebolledo NEG BACILLIFEWSt. Rita's HospitalComhenry ford hospital on above: Performed By: #### BNP #### [facility] [address] [address] [address] Erasmo Rebolledo NEG DIPPLOCOCCISt. Rita's HospitalComment on above: Performed By: #### BNP #### [facility] [address] [address] [address] Erasmo Rebolledo POS BACILLISt. Rita's HospitalComment on above: Performed By: #### BNP #### [facility] [address] [address] [address] Erasmo Rebolledo POSITIVE COCCIMARegional Medical CenterComment on above:Performed By: #### BNP #### [facility] [address] [address] [address] Erasmo Stinson (Bld) [#/Vol]10*3/[facility] HospitalComhenry ford hospital on above:Performed By: #### BNP #### [facility] [address] [address] [address] Erasmo Castle CULTUREon 86-65-3263Kfnbimhcfe cells LM Ql (Urine sed)Few NormalThe [facility] CenterComhenry ford hospital on above:Performed By: #### CXSPTUM ####[facility] W[address] [place], [place] [address]Dr. Erasmo Rebolledo Stain EvaluationComUniversity Hospitals Health SystemComment on above:Result Comment: This specimen is of good quality and is acceptable for routine bacterial culture.Performed By: #### CXSPTUM ####[facility] F[address] [place], [place] [address]Dr. Erasmo Pandya Respiratory CultureFinal [facility] Methodist HospitalComment on above: Performed By: #### CXSPTUM ####[facility] Rxkagtiffo[address] [place], [place] [address]Dr. Erasmo Nicole 1ComUniversity Hospitals Health SystemComment on above:Result Comment: Few gram positive cocciPerformed By: #### CXSPTUM ####[facility] [address] [address]DrMeena Nicole Comment: Routine respiratory floraResult 2NormalThe [facility] CenterComment on above:Performed By: #### CXSPTUM ####[facility] [address] [address]Dr. Erasmo Wright 3St. Rita's HospitalComment on above:Performed By: #### CXSPTUM ####[facility] [address] [address]Dr. Erasmo Nicole 4St. Rita's HospitalComment on above:Performed By: #### CXSPTUM ####[facility] [address] [place], [place] [address]DrMeena Ryan Blood CellsFewSt. Rita's HospitalComment on above:Performed By: #### CXSPTUM ####[facility] [address] [address]Dr. Erasmo Garcia [id number] peptide B (Bld) [Mass/Vol]319.0 pg/mLNormal<=900.0The [facility] CenterComment on above: Performed By: #### BNP #### [facility] [address] [place] [address] Dr. Erasmo Jerome AUTO DIFFon 50-57-5913IMNW #0.1 103/ulNormal0.0-0.1The [facility] CenterComment on above:Performed By: #### CMREP #### [facility] [address] [place] [address] Dr. Erasmo Santosphils/100 WBC (Bld)0.5 %Normal0.2-2.0[facility] Comment on above:Performed By: #### CMREP #### [facility] [address] [place] [address] Dr. Erasmo Baxter #0.3 103/ulNormal0.0-0.7The [facility] CenterComment on above: Performed By: #### CMREP #### [facility] [address] [place] [address] Dr. Erasmo Pattersonosinophils/100 WBC (Bld)3.1 %Normal0.9-7.0The [facility] Comment on above:Performed By: #### CMREP #### [facility] [address] [place] [address] Dr. Erasmo Pattersonrythrocyte distribution width (RBC) [Ratio]15.1 %Critically high 11.0-15.0The [facility] CenterComment on above:Performed By: #### CMREP #### [facility] [address] [place] [address] Dr. Erasmo SmithHematocrit (Bld) [Volume fraction]33.9 %Critically low36.0-48.0 The [facility] CenterComment on above:Performed By: #### CMREP #### [facility] [address] [place] [address] Dr. Erasmo SmithHemoglobin (Bld) [Mass/Vol]10.7 g/dLCritically low12.0-16.0The [facility] CenterComment on above:Performed By: #### CMREP #### [facility] [address] [place] [address] Dr. Erasmo Spring #0.03 10e3/ulNormal0.00-0.03The [facility] CenterComment on above:Performed By: #### CMREP #### [facility] [address] [place] [address] Dr. Erasmo Spring %0.3 %Normal0.0-0.5The [facility] CenterComment on above: Performed By: #### CMREP #### [facility] [address] [place] [address] Dr. Erasmo Bentley #2.8 103/ulNormal1.2-3.8The [facility] CenterComment on above:Performed By: #### CMREP #### [facility] [address] [place] [address] Dr. Erasmo Pacemphocytes/100 WBC (Bld)30.6 %Cgubbh61.5-60.0The [facility] CenterComment on above:Performed By: #### CMREP #### [facility] [address] [place] [address] Dr. Erasmo AnayaUAL DIFF REQNONormalThe [facility] CenterComment on above: Performed By: #### CMREP #### [facility] [address] [place] [address] Dr. Erasmo Reed (RBC) [Entitic mass]26.9 dwIzdiqe80.7-34.0The [facility] CenterComment on above:Performed By: #### CMREP #### [facility] [address] [place] [address] Dr. Erasmo Reed (RBC) [Mass/Vol]31.6 g/mLWamwdi06.9-35.2The [facility] CenterComment on above:Performed By: #### CMREP #### [facility] [address] [place] [address] Dr. Erasmo Reed (RBC) [Entitic vol]85.2 xYOfbveu32.0-99.0The [facility] CenterComment on above:Performed By: #### CMREP #### [facility] [address] [place] [address] Dr. Erasmo Stanley #0.7 103/ulNormal0.3-0.8The [facility] CenterComment on above:Performed By: #### CMREP #### [facility] [address] [place] [address] Dr. Erasmo Guidryocytes/100 WBC (Bld)7.9 %Normal1.7-12.0The [facility] Comment on above:Performed By: #### CMREP #### [facility] [address] [place] [address] Dr. Erasmo Foster #5.3 103/ulNormal1.4-6.5The [facility] CenterComment on above:Performed By: #### CMREP #### [facility] [address] [place] [address] Dr. Erasmo Husainutrophils/100 WBC (Bld)57.6 %Aprjyg11.0-75.0The [facility] CenterComhenry ford hospital on above:Performed By: #### CMREP #### [facility] [address] [place] [address] Dr. Erasmo SmithPlatelet mean volume (Bld) [Entitic vol]9.0 fLCritically low 9.5-13.5The [facility] CenterComment on above:Performed By: #### CMREP #### [facility] [address] [place] [address] Dr. Erasmo SmithPLT249 103/waGmlxlz971-265Sxd [facility] CenterComment on above: Performed By: #### CMREP #### [facility] [address] [place] [address] Dr. Erasmo SmithRBC3.98 106/ulCritically low4.20-5.40The [facility] CenterComment on above:Performed By: #### CMREP #### [facility] [address] [place] [address] Dr. Erasmo SmithWBC9.1 103/ulNormal4.0-11.0The [facility] on above: Performed By: #### CMREP #### [facility] [address] [place] [address] Dr. Erasmo Leyva CHEST WO W CONon [id number] CHEST WO W CONEXAMINATION: CTA CHEST WO W CON HISTORY: SHORTNESS [...] Electronically authenticated by: PAULA BROWN Date: 2022-02-24 18:24St. Rita's HospitalD-DIMERon 52-95-6138D-DIMER1.36 mg/L FEUCritically high<=0.59 The [facility] CenterComment on above:Performed By: #### DDIM #### [facility] [address] [address] [address] Erasmo Shay-DIMER COMMENTSSEE BELOWSt. Rita's HospitalComment on above:Result Comment: Increases in D-Dimer concentration observed with thromboembolic events [...] stress, and generalized hospitalization. Performed By: #### DDIM #### [facility] [address] [address] [address] Erasmo SmithPROF 14(COMP METB)on 75-41-2079Glhilrl [Mass/Vol]3.6 g/dLNormal 3.4-5.0The [facility] CenterComment on above:Performed By: #### CMREP #### [facility] [address] [address] [address] Erasmo SmithAlbumin/Globulin [Mass ratio]0.8 {ratio}NormalThe [facility] CenterComment on above:Performed By: #### CMREP #### [facility] [address] [place] [address] Dr. Erasmo MenaP [Catalytic activity/Vol]95 U/OSnxcun66-664Cns [facility] CenterComment on above:Performed By: #### CMREP #### [facility] [address] [place] [address] Dr. Erasmo Gaines [Catalytic activity/Vol]45 U/VEufimw74-44Ofz [facility] CenterComment on above:Performed By: #### CMREP #### [facility] [address] [place] [address] Dr. Erasmo Naikon gap [Moles/Vol]15.9 mmol/LNormalThe [facility] Comment on above:Performed By: #### CMREP #### [facility] [address] [place] [address] Dr. Erasmo SmithAST [Catalytic activity/Vol]33 U/FSfeevf49-92Zpy [facility] CenterComment on above:Performed By: #### CMREP #### [facility] [address] [place] [address] Dr. Erasmo SmithBilirubin [Mass/Vol]0.5 mg/dLNormal0.2-1.0The [facility] Comment on above:Performed By: #### CMREP #### [facility] [address] [place] [address] Dr. Erasmo SmithCalcium [Mass/Vol]9.1 mg/dLNormal8.5-10.1The [facility] Comment on above:Performed By: #### CMREP #### [facility] [address] [place] [address] Dr. Erasmo SmithChloride [Moles/Vol]103 mmol/USsgahe09-323Mfe [facility] Comment on above:Performed By: #### CMREP #### [facility] [address] [place] [address] Dr. Erasmo SmithCO2 [Moles/Vol]25.1 mmol/WYlqyez29.0-32.0[facility] Comment on above:Performed By: #### CMREP #### [facility] [address] [place] [address] Dr. Erasmo Harrisatinine [Mass/Vol]0.77 mg/dLNormal0.55-1.02[facility] CenterComment on above:Performed By: #### CMREP #### [facility] [address] [place] [address] Dr. Erasmo PattersonGFR-AF PANAMANIAN>60Normal>=60The [facility] CenterComment on above:Performed By: #### CMREP #### [facility] [address] [place] [address] Dr. Erasmo Addison-NON AF PANAMANIAN>60Normal>=60The [facility] CenterComment on above:Performed By: #### CMREP #### [facility] [address] [place] [address] Dr. Erasmo SmithGlobulin (S) [Mass/Vol]4.3 g/dLNormalThe [facility] CenterComment on above:Performed By: #### CMREP #### [facility] [address] [place] [address] Dr. Erasmo SmithGlucose [Mass/Vol]92 mg/gXTdmigj74-977DnqTogus Va [facility] Center Comment on above:Performed By: #### CMREP #### [facility] [address] [place] [address] Dr. Erasmo SmithPotassium [Moles/Vol]4.0 mmol/LNormal3.5-5.1The [facility] Comment on above:Performed By: #### CMREP #### [facility] [address] [place] [address] Dr. Erasmo SmithProtein [Mass/Vol]7.9 g/dLNormal6.4-8.2The [facility] Comment on above:Performed By: #### CMREP #### [facility] [address] [place] [address] Dr. Erasmo SmithSodium [Moles/Vol]140 mmol/UKjrbyr387-454Kjm [facility] Comment on above:Performed By: #### CMREP #### [facility] [address] [address] [address] Erasmo Lala nitrogen [Mass/Vol]17.0 mg/dLNormal7.0-18.0[facility] CenterComment on above:Performed By: #### CMREP #### [facility] [address] [address] [address] Erasmo Lala nitrogen/Creatinine [Mass ratio]22.1 mg/mgNoUniversity Hospitals Parma Medical CenterComment on above:Performed By: #### CMREP #### [facility] [address] [address] [address] Erasmo SmithPROTIMEon 68-66-0239KNW Coag (PPP) [Relative time]2.28 {INR} NormalThe [facility] CenterComment on above:Performed By: #### PT, PTT ####[facility] [address] [address]DrMeena Simmons GUIDELINESSEE BELOWSt. Rita's HospitalComment on above: Result Comment: DESIRED INR: 2.0 - 3.0 CONDITIONS NOT LISTED BELOW 2.5 - 3.5 FOR PROSTHETIC HEART VALVE REPLACEMENT 2.5 - 3.5 RECURRENT THROMBOSISPerformed By: #### PT, PTT ####[facility] [address] [address]DrMeena SmithPT Coag (PPP) [Time]23.3 sCritically high9.0-11.6The [facility] CenterComment on above:Performed By: #### PT, PTT ####[facility] [address] [address]DrMeena SmithPTTon 69-36-1803hAKL Coag (Bld) [Time]34.7 wIuckxl96.3-36.2The [facility] Comment on above:Performed By: #### PT, PTT ####[facility] [address] [address]DrMeena Kc, HIGH SENSITIVITYon 73-46-1820OEBULL5.6 pg/mLNormal4.0-51.3The [facility] CenterComment on above: Result Comment: CUT-OFF POINTS HAVE BEEN ESTABLISHED BASED ON THE FOURTH UNIVERSAL DEFINITIONS OF MYOCARDIAL INFARCTION. THE UPPER REFERENCE LIMIT (URL) OF TROPONIN, DEFINED THE 99TH PERCENTILE OF cTnI DISTRIBUTION IN A REFERENCE POPULATION, HAS BEEN CONFIRMED THE DECISION THRESHOLD FOR OK DIAGNOSIS.Performed By: #### CMREP #### [facility] [address] [place], [place] [address] Dr. Erasmo SmithPROTHROMBIN TIMEon 60-86-1129YRC Coag (PPP) [Relative time]1.2 {INR}High0.86-1.16[facility] SystemComment on above:Result Comment: INR Theraputic Range: 2.0-3.5 Performed at [facility] [address] [facility] [id number] Coag (PPP) [Time]12.7 s Normal9.3-12.7[facility] HospitalANTICOAGUAdena Health System Vital Signs Date TimeVital SignValuePerforming JfpnjvtywAhkhgxem95-83-6312 11:30-0500Body lmkrja169.8 cmDawest Hansen MD Work Phone: [phone] HealthIutnhxtglk78-67-6124 11:30-0500Body mass index (BMI) [Ratio]48.04 kg/w3FivggbRenny Hansen MD Work Phone: [phone] HealthPzhzsrvzrz73-08-6702 11:30-0500Body kygsia525.7 kgRenny Hansen MD Work Phone: [phone] HealthNspjcozneh71-59-5192 11:30-0500Diastolic blood qtnjyezq93 mm[Hg]Renny Hansen MD Work Phone: [phone] John's HospitalOavcquypzj81-32-4612 11:30-0500Heart rate60 /min Renny Hansen MD Work Phone: [phone] HealthHrwlneshoh15-77-6614 11:30-0174FvG5% (BldA) [Mass fraction]95 %Renny Hansen MD Work Phone: NOSaint John's HospitalYcetvwrtbh62-37-9230 11:30-0500Systolic blood qrcvekqv998 mm[Hg]Renny Hansen MD Work Phone: [phone] HealthHnbkezwjyb25-40-6915 12:39-0400Body rewxqi075.8 cmRenny Hansen MD Work Phone: [phone]-6835[facility] HealthAaszffzcol15-49-2099 12:39-0400Body mass index (BMI) [Ratio]48.69 kg/z9KlvummRenny Hansen MD Work Phone: [phone] [place], [place] [address]Blpanaawos34-15-8437 12:39-0400Body wyktph427.06 kgRenny Hansen MD Work Phone: [phone] [place], [place] [address]Jsbagzwspd16-65-4814 12:39-0400Diastolic blood zbuqhwah52 mm[Hg]Renny Hansen MD Work Phone: [phone] [place], [place] [address]Hhdkgaaixd44-90-2005 12:39-0400Systolic blood ildlcnkp418 mm[Hg]Renny Hansen MD Work Phone: [phone] [place], [place] [address]Mpnkpalxkr69-11-8941 10:32-0400Diastolic blood ssmxrbha23 mm[Hg]Renny Hansen II Work Phone: [phone] [place], [place] 6050209-25-2025 10:32-0400 Heart rate67 /Justina Hansen II Work Phone: [phone] [place], [place] 6050209-25-2025 10:32-0400 Respiratory rate16 /Justina Hansen II Work Phone: [phone] [place], [place] 6050209-25-2025 10:32-0400 SaO2% (BldA) [Mass fraction]100 %Renny Hansen II Work Phone: [phone] [place], [place] 6050209-25-2025 10:32-0400 Systolic blood sebqpyre321 mm[Hg]Renny Hansen II Work Phone: [phone] [place], [place] 6050209-25-2025 08:25-0400 Body pzffam931.86 cmRenny Hansen II Work Phone: [phone] [place], [place] 6050209-25-2025 08:25-0400 Body cvzgye81.97 kgRenny Hansen II Work Phone: [phone] [place], [place] 6050209-15-2025 13:00-0400 Diastolic blood snuampum58 mm[Hg]Renny Hansen II Work Phone: [phone]09-15-2025 13:00-0400 Heart rate67 /Justina Hansen II Work Phone: [phone])[address]09-15-2025 13:00-0400 Respiratory rate16 /Justina Hansen II Work Phone: [phone])[address]09-15-2025 13:00-0400 SaO2% (BldA) [Mass fraction]96 %Renny Hansen II Work Phone: [phone]09-15-2025 13:00-0400 Systolic blood eskzrvcs955 mm[Hg]Renny Hansen II Work Phone: [phone]09-11-2025 08:22-0400 Body amiesdaoupa67.8 [degF]Renny Hansen II Work Phone: [phone]08-22-2025 13:49-0400 Body lhlejo962.86 cmDawest Hansen II Work Phone: [phone] [place], [place] 285[address]108-22-2025 13:49-0400 Body mass index (BMI) [Ratio]45 kg/j2Yfpcnf Hansen II Work Phone: [phone] [place], [place] 285[address]108-22-2025 13:49-0400 Body fwxdalhigfs48.8 [degF]Renny Hansen II Work Phone: [phone]08-22-2025 13:49-0400 Body iyodqw720.15 kgDawest Hansen II Work Phone: [phone] [place], [place] 2855108-22-2025 13:49-0400 Diastolic blood xvuvmjlh80 mm[Hg]Renny Hansen II Work Phone: [phone]08-22-2025 13:49-0400 Heart rate59 /Justina Hansen II Work Phone: [phone]08-22-2025 13:49-0400 Respiratory rate16 /minDmarlen Hansen II Work Phone: [phone] [place], [place] 285[address]108-22-2025 13:49-0400 SaO2% (BldA) [Mass fraction]98 %Renny Hansen II Work Phone: [phone]08-22-2025 13:49-0400 Systolic blood yqtvqiro694 mm[Hg]Renny Hansen II Work Phone: [phone] [place], [place] [address]5108-13-2025 09:41-0400 Body fpxvyk552.8 cmSabdoul Russo 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 Work Phone: [phone] [place], [place] 1915308-13-2025 09:41-0400Body mass index (BMI) [Ratio]48.91 kg/z8KqhexlShannon Russo 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 Work Phone: [phone] [place], [place] [address]Kjcpychhhc16-31-0466 09:41-0400Body .51 kgShannon Russo 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 Work Phone: [phone] [place], [place] [address]Axectassrd69-79-8560 09:41-0400Diastolic blood jeubldvs05 mm[Hg]Shannon Russo 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 Work Phone: [phone] [place], [place] 1915308-13-2025 09:41-0400Heart rate81 /min Shannon Russo 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 Work Phone: [phone]-[address] [place], [place] [address]Liqbvinzal99-76-5178 09:41-0400Respiratory rate17 /minSabdoul Russo 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 Work Phone: [phone]-[address] [place], [place] [address]Blcveowgxx89-07-8751 09:41-8165WdX0% (BldA) [Mass fraction]97 %Shannon Russo 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 Work Phone: [phone] [place], [place] [address]Tfmbxgqcfr09-58-9512 09:41-0400Systolic blood laejrxxa815 mm[Hg]Shannon Russo 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 Work Phone: [phone] [place], [place] [address]Mlwujzvxji05-30-3831 11:04-0400Body tkoeyo208.3 cmEleanor Dumont PA Work Phone: [phone] [place], [place] [address]Qyzqqvwhhu73-83-3861 11:04-0400Body mass index (BMI) [Ratio]33.34 kg/i3Ddfjq Hemmer PA Work Phone: [facility] HealthCljkwwxxyi37-96-1841 11:04-0400Body udatww421.42 kgKaren Hemmer PA Work Phone: [facility] HealthXjhdwturxm42-92-0609 11:04-0400Diastolic blood hlzcjsox69 mm[Hg]Eleanor Hemmer PA Work Phone: 1(716)[facility] [place], [place] [address]Yccpzppoxh32-10-5735 11:04-0400Heart rate71 /min Eleanor Hemmer PA Work Phone: [phone])[facility]-5954[facility] HealthItaitjjbro38-60-4666 11:04-0400Respiratory rate16 /minKaren Hemmer PA Work Phone: [phone])[facility]-2821[facility] HealthYvzotdurbf16-71-8644 11:04-7173XbJ3% (BldA) [Mass fraction]96 %Eleanor Hemmer PA Work Phone: 1(091)[facility]-2635[facility] HealthUafttsakmp61-07-5956 11:04-0400Systolic blood wgihrlqz437 mm[Hg]Eleanor Hemmer PA Work Phone: [facility] HealthKyrpiblkyo32-35-6337 11:38-0400Body .9 cmRenny Hansen MD Work Phone: [phone])[facility]-8613[facility] HealthHcxrtotief79-32-6585 11:38-0400Body mass index (BMI) [Ratio]45.04 kg/f5JwpqsxRenny Hansen MD Work Phone: 1(151)[facility]-[address] [place], [place] [address]Mjhorjcwkd83-83-2702 11:38-0400Body lolxhu178.15 kgRenny Hansen MD Work Phone: [phone])[facility]-2487[facility] HealthBmvybxyayn28-09-0458 11:38-0400Diastolic blood yysadtao12 mm[Hg]Renny Hansen MD Work Phone: 1(862)[facility]-[address] [place], [place] [address]Sisjychvld98-62-1772 11:38-0400Heart rate61 /min Renny Hansen MD Work Phone: [phone])[facility]-8880[facility] HealthSycycvjavo84-20-3981 11:38-0400Respiratory rate16 /minDmarlen Hansen MD Work Phone: [phone] [place], [place] [address]Wrvdpzgpvl81-73-0007 11:38-7761JmV5% (BldA) [Mass fraction]96 %Renny Hansen MD Work Phone: 1(686)[facility]-[address] [place], [place] [address]Wwwyijrvur45-48-8750 11:38-0400Systolic blood jfapxjjz891 mm[Hg]Renny Hansen MD Work Phone: [phone]-[address] [place] [address]Jfbskgoieo93-73-9340 10:58-0400Body nurrmt072.9 cmRenny Hansen MD Work Phone: 1(398)[facility]-[address] [place], [place] [address]Mfbrdhowzz07-81-0509 10:58-0400Body mass index (BMI) [Ratio]44.84 kg/s1MnqmczRenny Hansen MD Work Phone: 1(851)[facility]-[address] [place], [place] [address]Keyquknwde61-61-9783 10:58-0400Body jvrmuz219.7 kgRenny Hansen MD Work Phone: 1(825)[facility]-[address] [place], [place] [address]Vwjhbolwjy78-52-2606 10:58-0400Diastolic blood qebxrmsu72 mm[Hg]Renny Hansen MD Work Phone: 1(468)[facility]-[address] [place], [place] [address]Zirflmtafd57-05-9904 10:58-0400Heart rate75 /min Renny Hansen MD Work Phone: 1(721)[facility]-1032[facility] HealthFcermqqulb64-45-3818 10:58-0866CrI7% (BldA) [Mass fraction]95 %Renny Hansen MD Work Phone: 1(715)[facility]-8369[facility] HealthVtbjnqnhag90-73-2171 10:58-0400Systolic blood hjoirqlp054 mm[Hg]Renny Hansen MD Work Phone: 1(215)289-[address] [place], [place] [address]Ombovsuqxc14-53-7216 14:47-0500Body xitxtn55.42 kgRenny Hansen II Work Phone: 1(185)616-[address] [place], [place] 6050202-17-2025 14:47-0500 Diastolic blood onbooemk89 mm[Hg]Renny Hansen II Work Phone: 1(090)277-[address] [place], [place] 6050202-17-2025 14:47-0500 Heart rate66 /minDsergeyel Hansen II Work Phone: 1(810)294-[address] [place], [place] 6050202-17-2025 14:47-0500 Respiratory rate20 /minDaniel Hansen II Work Phone: [facility]02-17-2025 14:47-0500 SaO2% (BldA) [Mass fraction]97 %Renny Hansen II Work Phone: [facility]02-17-2025 14:47-0500 Systolic blood bmqzbral197 mm[Hg]Renny Hansen II Work Phone: 1(169)850-[address] [place], [place] 9470702-05-2025 11:35-0500 Body akuvtk756.9 cmRenny Hansen MD Work Phone: [facility] HealthVtlftarefc08-03-9509 11:35-0500Body mass index (BMI) [Ratio]44.23 kg/h2QmrntyRenny Hansen MD Work Phone: [facility] HealthKwmgjjcons74-13-8637 11:35-0500Body ohytzs39.34 kgRenny Hansen MD Work Phone: [facility] HealthUgzasxqyuw28-69-8673 11:35-0500Diastolic blood bptzpcpo82 mm[Hg]Renny Hansen MD Work Phone: [facility] HealthCqrfjnrdtg91-62-2777 11:35-0500Heart rate61 /min Renny Hansen MD Work Phone: [facility] HealthCfmwkrgebk57-11-7991 11:35-7301QcN4% (BldA) [Mass fraction]97 %Renny Hansen MD Work Phone: [facility] HealthRntcoyiqzk10-81-3198 11:35-0500Systolic blood dqhtxywu678 mm[Hg]Renny Hansen MD Work Phone: [facility] HealthEotiefavnx16-95-7167 14:56-0500Body arcyxd340.9 cmPaul Laffay DO Work Phone: [facility] HealthGqnbvtsadf04-74-5847 14:56-0500Body mass index (BMI) [Ratio]45.04 kg/m2Paul Laffay DO Work Phone: NOSaint John's HospitalOzberhaeir22-92-9455 14:56-0500Body ulnbug746.15 kgPaul Laffay DO Work Phone: noSaint John's HospitalAtxnzdjdsn85-39-1735 14:56-0500Diastolic blood qkkodzch34 mm[Hg]Dmitriy Duque DO Work Phone: noSaint John's HospitalPthcfequcz53-55-0211 14:56-0500Systolic blood abgykleo170 mm[Hg]Dmitriy Duque DO Work Phone: [facility] HealthQdvncqekyh58-54-4859 11:13-0500Body .86 cmDajoemaite Hansen II Work Phone: 1(971)751-[address] [place], [place] 9470701-14-2025 11:13-0500 Body mass index (BMI) [Ratio]44.6 kg/n7Ztyydf Hansen II Work Phone: 1(767)[address]01-14-2025 11:13-0500 Body hxbfnbqmmyw30.3 [degF]Renny Hansen II Work Phone: 1(981)[address]01-14-2025 11:13-0500 Body ksxbiw066.24 kgDajoeel Hansen II Work Phone: 1(922)248-[address] [place], [place] 6050201-14-2025 11:13-0500 Diastolic blood pbazgdku51 mm[Hg]Renny Hansen II Work Phone: 1(032)799-[address] [place], [place] 6050201-14-2025 11:13-0500 Heart rate72 /minDaniel Hansen II Work Phone: 1(204)386-[address] [place], [place] 6050201-14-2025 11:13-0500 Respiratory rate16 /minDaniel Hansen II Work Phone: 1(602)970-[address] [place], [place] 6050201-14-2025 11:13-0500 SaO2% (BldA) [Mass fraction]98 %Renny Hansen II Work Phone: 1(286)088-[address] [place], [place] 6050201-14-2025 11:13-0500 Systolic blood mdhxuqku158 mm[Hg]Renny Hansen II Work Phone: 1(755)617-[address] [place], [place] 6050201-08-2025 15:12-0500 Body dmpvyk831.9 cmLuisana Leal NP Work Phone: NOSaint John's HospitalOhnnvligop40-30-0984 15:12-0500Body mass index (BMI) [Ratio]44.07 kg/m2Luisana Leal 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 Work Phone: NOSaint John's HospitalMawqyxysfe54-25-0606 15:12-0500Body kgyxlt49.97 kgLuisana Lela 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 Work Phone: NOSaint John's HospitalUbphsiuoee34-46-6172 15:12-0500Diastolic blood drmodfhg21 mm[Hg]Luisana Leal 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 Work Phone: [facility] HealthMuhbolgpki14-07-1481 15:12-0500Heart rate63 /min Luisana Leal 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 Work Phone: NOSaint John's HospitalWqwvqkwhpp46-71-2726 15:12-0500Respiratory rate18 /minLuisana Leal 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 Work Phone: [facility] HealthHchbkzgcjn58-11-8995 15:12-2085JqP1% (BldA) [Mass fraction]95 %Luisana Leal 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 Work Phone: [facility] HealthMlzncsxesy07-67-4988 15:12-0500Systolic blood cjcktoxa760 mm[Hg]Luisana Leal 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 Work Phone: [facility] HealthYfrlsmdcjb86-85-9215 10:09-0500Body mass index (BMI) [Ratio]43.83 kg/x0Dyplwqvowkg Jose Roberto DO Work Phone: NOSaint John's HospitalKdhtvoeabx48-53-3740 10:09-0500Body .43 kgChristopher Jose Roberto DO Work Phone: [facility] HealthMmyjrglwwj29-64-3462 10:09-0500Diastolic blood ffohseph98 mm[Hg]Christopher Jose Roberto DO Work Phone: NOSaint John's HospitalUezjfdbdex00-30-5814 10:09-0500Heart rate66 /min Christopher Jose Roberto DO Work Phone: NOSaint John's HospitalBtgscpityj89-16-9221 10:09-9885XmG7% (BldA) [Mass fraction]91 %Christopher Jose Roberto DO Work Phone: [facility] HealthQeklodwepe38-19-6542 10:09-0500Systolic blood jencyrrg327 mm[Hg]Salome Cid DO Work Phone: [facility] HealthRhnmpjdioc22-29-3484 13:00-0500Body temperature 97.2 [degF]Renny Hansen II Work Phone: 1(293)551-[address] [place], [place] 9470712-30-2024 13:00-0500 Diastolic blood bufrzdwp15 mm[Hg]Renny Hansen II Work Phone: 1(703)683-[address] [place], [place] 6050212-30-2024 13:00-0500 Heart rate72 /minDsergeyel Hansen II Work Phone: 1(421)241-[address] [place], [place] 6050212-30-2024 13:00-0500 Respiratory rate19 /minDsergeyel Hansen II Work Phone: 1(630)471-[address] [place], [place] 6050212-30-2024 13:00-0500 SaO2% (BldA) [Mass fraction]96 %Renny Hansen II Work Phone: 1(565)239-[address] [place], [place] 6050212-30-2024 13:00-0500 Systolic blood yktygawh828 mm[Hg]Renny Hansen II Work Phone: 1(936)250-[address] [place], [place] 6050212-13-2024 13:00-0500 Body eouwsa208.86 cmDaniel Hansen II Work Phone: 1(389)412-[address] [place], [place] 6050212-13-2024 13:00-0500 Body mass index (BMI) [Ratio]45.4 kg/y5Jjwheo Hansen II Work Phone: 1(159)997-[address] [place], [place] 6050212-13-2024 13:00-0500 Body yigvmuouziq15.8 [degF]Renny Hasnen II Work Phone: 1(188)390-[address] [place], [place] 6050212-13-2024 13:00-0500 Body oxflgs236.05 kgDaniel Hansen II Work Phone: 1(552)144-[address] [place], [place] 6050212-13-2024 13:00-0500 Diastolic blood oxoureex28 mm[Hg]Renny Hansen II Work Phone: 1(293)783-[address] [place], [place] 6050212-13-2024 13:00-0500 Heart rate61 /Justina Hansen II Work Phone: [facility]12-13-2024 13:00-0500 Respiratory rate16 /Justina Hansen II Work Phone: 1(926)704-[address] [place], [place] 9470712-13-2024 13:00-0500 SaO2% (BldA) [Mass fraction]98 %Renny Hansen II Work Phone: 1(837)666-[address] [place], [place] 9470712-13-2024 13:00-0500 Systolic blood oeqcvqml310 mm[Hg]Renny Hansen II Work Phone: 1(510)639-[address] [place], [place] 6050212-05-2024 10:33-0500 Body xuvtle128.9 cmRenny Hansen MD Work Phone: [facility] HealthRqfzvlzqrh36-59-9550 10:33-0500Body mass index (BMI) [Ratio]44.23 kg/h3FobiiwRenny Hansen MD Work Phone: [facility] HealthGhkeourzkq12-12-1956 10:33-0500Body .34 kgRenny Hansen MD Work Phone: [facility] HealthKionyjdgiu01-17-2729 10:33-0500Diastolic blood mm[Hg]Renny Hansen MD Work Phone: [facility] HealthSqtahkobqd05-63-8340 10:33-0500Heart rate66 /min Renny Hansen MD Work Phone: [facility] HealthSjpyldhxji55-61-5126 10:33-8240NjQ4% (BldA) [Mass fraction]95 %Renny Hansen MD Work Phone: [facility] HealthLychsktokt04-40-8291 10:33-0500Systolic blood ipcindzb440 mm[Hg]Renny Hansen MD Work Phone: [facility] HealthSjblnkysqm65-33-6198 10:51-0500Body aysflc725.9 cmRenny Hansen MD Work Phone: [facility] HealthGnhidqovud70-71-5993 10:51-0500Body mass index (BMI) [Ratio]44.84 kg/u8XbyyppRenny Hansen MD Work Phone: [place] [address]Uvudabwfpi34-70-2170 10:51-0500Body temperature 98.4 [degF]Renny Hansen MD Work Phone: [place] [address]Volovemsfo96-70-1890 10:51-0500Body vkirzl925.7 kgRenny Hansen MD Work Phone: [place] [address]Wgkpqajpgh66-50-6323 10:51-0500Diastolic blood ngemaeji03 mm[Hg]Renny Hansen MD Work Phone: [place] [address]Igznfqnlnj72-37-4372 10:51-0500Heart rate60 /min Renny Hansen MD Work Phone: [place] [address]Cpylszjidk96-76-3300 10:51-9737YhJ7% (BldA) [Mass fraction]95 %Renny Hansen MD Work Phone: [facility] HealthOnfdfjwmkr44-79-6193 10:51-0500Systolic blood mvsuaren068 mm[Hg]Renny Hansen MD Work Phone: [place] [address]Wphpoypvof15-46-4491 10:48-0500Body gavgjk707.9 cmKaren Hemmer PA Work Phone: [place] [address]Lczrtdpuqk54-28-2919 10:48-0500Body mass index (BMI) [Ratio]45.85 kg/k7Imuuo Hemmer PA Work Phone: [place] [address]Arilahxvlg93-27-3353 10:48-0500Body ghnair841.97 kgFilippoen Hemmer PA Work Phone: [place] [address]Fxdwlehzpo89-09-1957 10:48-0500Diastolic blood kvmykjqd60 mm[Hg]Eleanor Hemmer PA Work Phone: [place] [address]Jubsbofvqp05-18-6741 10:48-0500Heart rate60 /min Eleanor Hemmer PA Work Phone: [place] [address]Tgepxdxmnv63-74-2730 10:48-8383PjM7% (BldA) [Mass fraction]96 %Eleanor Hemmer PA Work Phone: [place] [address]Kcstmnzora88-30-8888 10:48-0500Systolic blood phwxfohv028 mm[Hg]Eleanor SANTOS Work Phone: NOSaint John's HospitalBrfzihuori01-75-8124 08:50-0400Body .9 cmRenny Hansen MD Work Phone: NOS[facility]'s HospitalYcrwsorgbq94-08-5456 08:50-0400Body mass index (BMI) [Ratio]46.66 kg/q3InibtjRenny Hansen MD Work Phone: NOSaint [facility]'s HospitalCsxhrlgcbq95-90-6964 08:50-0400Body ofxkie451.78 kgRenny Hansen MD Work Phone: NOSaint John's HospitalDirjuvbmsm69-43-0433 08:50-0400Diastolic blood behqdvhn01 mm[Hg]Renny Hansen MD Work Phone: NOSaint [facility]'s HospitalCkjegprisx82-74-5260 08:50-0400Heart rate69 /min Renny Hansen MD Work Phone: NOSaint [facility]'s HospitalKfmdwjusvx82-96-5574 08:50-5456OpW2% (BldA) [Mass fraction]96 %Renny Hansen MD Work Phone: NOSaint John's HospitalHavisgjhxj94-85-4901 08:50-0400Systolic blood yaaiactq149 mm[Hg]Renny Hansen MD Work Phone: NOSaint John's HospitalAzbkamyvdp29-95-1022 13:46-0400Body zuogfo925.9 cmJazmín Rashidzpatrick 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 Work Phone: NOSaint John's HospitalLkiuljuomd23-38-1847 13:46-0400Body mass index (BMI) [Ratio]47.87 kg/y7Annsjqis Calvillo 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 Work Phone: NOSaint John's HospitalDowfwhhyts11-86-9825 13:46-0400Body temperature 98.4 [degF]Jazmín Calvillo 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 Work Phone: NOSaint John's HospitalIrxwuypmqf91-45-9521 13:46-0400Body vtzsre125.5 kgJazmín Calvillo 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 Work Phone: NOSaint John's HospitalEhmzjbzkxl60-17-7413 13:46-0400Diastolic blood dhpdlymo43 mm[Hg]Jazmín Valadezk 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 Work Phone: [facility] HealthBjodxfwbxn43-34-4205 13:46-0400Heart rate73 /min Jazmín Pearsontrick 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 Work Phone: [place] [address]Dvsgrjdfbz37-52-6361 13:46-9778WsY3% (BldA) [Mass fraction]95 %Jazmín Pearsontrick 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 Work Phone: [facility] HealthYbsprshsig92-30-0864 13:46-0400Systolic blood sconmtex968 mm[Hg]Jazmín Valadezk 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 Work Phone: [facility] HealthRosorgbmld76-99-4116 13:17-0400Body otwkbi436.9 cmLuizivory Sherwin PA-C Work Phone: [facility]09-10-2024 13:17-0400Body mass index (BMI) [Ratio]44.43 kg/z5Awpidewht Sherwin PA-C Work Phone: [facility]09-10-2024 13:17-0400Body pxrtyq58.79 kgNatshavonneiel Sherwin PA-C Work Phone: [facility]06-21-2024 11:51-0400Blood Pressure LocationMichael NILL [phone]-[facility]hkdxC[facility] [place] 03-02-2024 11:51-0400Diastolic blood mm[Hg]Jair NILL 465-7119Pqrfdq-GuunoCincinnati [facility] [place] 03-02-2024 11:51-0400Heart rate71 /minMichael NILL 049-7580Vhvzwh-[facility]jcwwMary[facility] 03-02-2024 11:51-0400Respiratory rate16 /minMichael NILL 492-6427Lpyttb-JnjdtMarymount Hospital 03-02-2024 11:51-0400Systolic blood mm[Hg]Jair ALEXANDER 862-5037Bhsfsq-YzhdpGreen [facility] [place] 10-07-2021 16:00-0500Body onlxcp428.69 cmDavid Hykes Other [employer] Other 01-26-2022 16:00-0500Body mass index (BMI) [Ratio] 51.01 kg/y6Jalwv Hykes Other [facility] [employer] Other 01-26-2022 16:00-0500Body tikqhy958.77 kgDavid Hykes Other [facility] [employer] Other 12-15-2021 15:15-0500Body arqlsh205.69 cmDavid Hykes Other Wrnchsaint john's health system [employer] Other 12-15-2021 15:15-0500Body mass index (BMI) [Ratio] 51.07 kg/a3Jtsrs Hykes Other [facility]chsaint [facility] [employer] Other 12-15-2021 15:15-0500Body mulpdo855.91 kgDavid Hykes Other Wrnchsaint john's health system [employer] Other Encounters Encounter DateEncounter TypeCare ProviderFacilityStart: 33-04-5179didnjvmiar Danna Piña LueFacility:FTMCStart: 87-64-9601tdrhqpiotpUhczr M. LueFacility:EU BellevueStart: 02-15-9794dznjvzsyfmGecjh LueFacility:EU [place]kyStart: 07-18-2025 End: 45-51-6989Cejbzp flowsheetRenny Hansen MD Work Phone: [facility] MedinceStart: 07-18-2025 End: 28-12-2731Qckokxzak Hansen MD Work Phone: NOMS [facility] MedinceStart: 07-18-2025 End: 23-98-5677Erskna outpatient visit 25 minutesRenny Hansen MD Work Phone: NOMS [facility] MedinceComment on above:Asymptomatic microscopic hematuria (Primary Dx); Acute cystitis with hematuriaStart: 07-18-2025 End: 85-66-3143uiapqecfquSEJTAC B BERRYNot AvailableStart: 07-16-2025 End: 99-47-4634twicarfrsdFGFZ [facility] Dublintart: 07-10-2025 End: 13-30-4185Iwheqocij Result EncounterGeneric External Data ProviderNOMS External Department UnsolicitedStart: 07-10-2025 End: 00-26-3548Kfefxlczu Result EncounterGeneric External Data ProviderNOMS External Department UnsolicitedStart: 07-10-2025 End: 98-07-8769sryomiyirrQWFFJ [facility]tart: 07-05-2025 End: 16-48-2188Zbypvdjazmin Hansen MD Work Phone: NOMS [facility] MedinceStart: 07-05-2025 End: 02-09-3172Lhuzbizak Hansen MD Work Phone: NOM[facility] MedinceStart: 07-05-2025 End: 28-30-8994jfehvrphkvHAKVCX B BERRYNot AvailableStart: 07-05-2025 End: 77-27-4942Ipywhz outpatient visit 15 minutesDawest Hansen MD Work Phone: NOMS [facility] MedinceComment on above:Bronchitis Start: 06-06-2025 End: 87-20-4781vnnadpydhjPfxerm BerryFacility:[facility] Start: 03-95-2294Nrt-patient / Non-visitCamkarthik Gustafson MD-[facility] Work Phone: Start: 70-06-8442Txioxxxtcc RecurringJuan Monahan II DO-[facility] [place] [facility] Work Phone: Start: 85-19-2108griancubwkRdeeggz J Adamowicz II [facility]: 05-20-2025 End: 64-94-4435sqckfbdklcPqfurcdGarima Murphy MDFacility:[facility] [place] Start: 05-16-2025 End: 36-47-7131Vigptb Vitor Hansen MD Work Phone: noms [facility] MedinceStart: 05-16-2025 End: 68-31-2440Elkfmk Vitor Hansen MD Work Phone: noms [facility] MedinceStart: 05-16-2025 End: 76-26-4152fuardtjaudZZXHLA B BERRYNot AvailableStart: 05-15-2025 End: 21-81-3357xlutornpwwEGFXMMV [facility] Hospitaltart: 90-11-0275Dmambiclrb RecurringKatharina Madai Tre NURSING PROGRAM DIRECTORAcoma-Canoncito-[facility] Work Phone: Start: 05-03-2025 End: 82-13-6964fzvnixxjvzQbygla Berry II Work Phone: [facility] Work Phone: Start: 05-03-2025 End: 78-76-7839Ojlwlbb encounter procedureCaradha Spears 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-C-[facility] Work Phone: Start: 04-24-2025 End: 94-27-8294Klbswi Samy Russo 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 Work Phone: noms [facility] MedinceStart: 04-24-2025 End: 81-61-2216Sgdnph Samy Russo 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 Work Phone: noms [facility] MedinceStart: 04-24-2025 End: 56-09-2918Ogvcxloer Result EncounterGeneric External Data ProviderNOMS External Department UnsolicitedStart: 04-24-2025 End: 92-42-0807Blorledq Result EncounterSherri Nathan Russo 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 Work Phone: NOMS External Department UnsolicitedStart: 04-24-2025 End: 21-05-7362Hvhsla outpatient visit 25 minutesShannon Russo 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 Work Phone: NOWD [facility] MedinceComment on above:Hematuria, unspecified typeStart: 04-24-2025 End: 54-78-4598ryxkntolqqQKEPQH M SHIVELYNot AvailableStart: 04-22-2025 End: 22-61-5026hszhogkdcyYxmkgycGarima Murphy MDFacility:[facility] Start: 04-18-2025 End: 25-20-5041Hkhklh Jacquelyn SANTOS Work Phone: NOLU [facility] MedinceStart: 04-18-2025 End: 28-38-7766Nhiegb Jacquelyn SANTOS Work Phone: NOM[facility] MedinceStart: 04-18-2025 End: 36-60-0737Lvuldk outpatient visit 15 minutesEleanor SANTOS Work Phone: N[facility] MedinceComment on above:Chronic obstructive pulmonary disease, unspecified COPD type (HCC) (Primary Dx)Start: 04-18-2025 End: 39-18-4764vsjhfbnvhhJZRBS M HEMMERNot AvailableStart: 73-26-2466ipfcluyfmi PAUL CHAAdams County Regional Medical Centertart: 02-21-2025 End: 84-87-3989Wkttnjvbj Result EncounterGeneric External Data ProviderNOMS External Department UnsolicitedStart: 02-21-2025 End: 56-46-5517Uqorvfcrw Result EncounterGeneric External Data ProviderNOMS External Department UnsolicitedStart: 02-20-2025 End: 94-42-8308pgzfsrgnhiFVYDKVI ELLISMary Rutan Hospitaltart: 02-18-2025 End: 55-47-3684Xboyiw Vitor Hansen MD Work Phone: NOMS CI FMStart: 02-18-2025 End: 85-97-9894Wbhzxe Vitor Hansen MD Work Phone: NOMS CI FMStart: 02-18-2025 End: 94-91-5588Ghoefl outpatient visit 15 minutesDawest Hansen MD Work Phone: NOMS CI FMComment on above:RLS (restless legs syndrome) (Primary Dx)Start: 02-18-2025 End: 76-45-0318psecehvzvjLASMPB B BERRYNot AvailableStart: 02-11-2025 End: 08-00-2216gmqkongarsZmqjexv Vytautas Giedraitis MDFacility:[facility] Start: 01-22-2025 End: 52-95-1641xkkkumtnhpSFTQ [facility]ublintart: 01-17-2025 End: 49-50-3554waxkrekbokWKRIUGU [facility] Hospitaltart: 09-14-7822levpbsdgwmKKUNAU [facility] Hospitaltart: 12-24-2024 End: 12-13-4557ikctmzlyzmEMPEL [facility] Hospitaltart: 12-21-2024 End: 90-43-2132Ptkxllklp Result EncounterGeneric External Data ProviderNOMS External Department UnsolicitedStart: 12-21-2024 End: 04-88-6939Irfexmsqi Result EncounterGeneric External Data ProviderNOMS External Department UnsolicitedStart: 12-17-2024 End: 78-84-9346Ocfugu Vitor Hansen MD Work Phone: NOMS CI FMStart: 12-17-2024 End: 50-37-4572Edjcjg Vitor Hansen MD Work Phone: NOMS CI FMStart: 12-17-2024 End: 36-62-5259Vqysps outpatient visit 25 minutesRenny Hansen MD Work Phone: NOMS CI FMComment on above: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 Sakina Cardenas DO Work Phone: NOMS SWS ORTHOComment on above:OP NoteStart: 11-07-2024 End: 04-76-9593Iotvae flowsheetJr. Sakina Cardenas DO Work Phone: NOMS SWS ORTHOStart: 11-07-2024 End: 64-74-4919Rcfujb flowsheetJr. Sakina Cardenas DO Work Phone: NOMS SWS ORTHOStart: 11-07-2024 End: 54-90-3659Wiyuts outpatient visit 15 minutesJr. Sakina Cardenas DO Work Phone: NOMS SWS ORTHOComment on above: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, initial encounter (CMS/HCC); History of reverse total replacement of left shoulder jointStart: 11-07-2024 End: 46-77-1920lmnqrurtvsBX., SAKINA Sofia AvailableStart: 10-29-2024 Aviva Hansen II Work Phone: [facility] Work Phone: Start: 10-29-2024 End: 16-94-6818jgqpqlyspdTlxdco Berry II Work Phone: [facility] Work Phone: Start: 10-29-2024 End: 88-09-9967Zqqocon encounter procedureDawest Hansen II Work Phone: [facility] Work Phone: Start: 10-29-2024 End: 44-40-0379dgikqqqpejCfgmpkhGarima Murphy MDFacility:[facility] [place] Start: 10-24-2024 End: 17-34-9951Wlzuuuj encounter procedureDawest Hansen II Work Phone: [facility] [place] Work Phone: Start: 10-24-2024 End: 65-07-4771xikevsnozrFopzqa Berry II Work Phone: [facility] Work Phone: Start: 10-24-2024 End: 71-89-8192Dzglnj outpatient visit 15 minutesJr. Sakina Cardenas DO Work Phone: noms SWS ORTHOComment on above:Injury of left shoulder and upper arm, sequela; Left shoulder pain, unspecified chronicity; 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, initial encounter ([facility]Start: 10-24-2024 End: 16-23-0204blmrjggyqiCR., SAKINA CARDENASNot AvailableStart: 10-24-2024 End: 59-96-3199Acnnwj flowsheetJr. Sakina Cardenas DO Work Phone: noms SWS ORTHOStart: 10-24-2024 End: 50-46-3361Acyjsg flowsheetJr. Sakina Cardenas DO Work Phone: noms SWS ORTHOStart: 10-24-2024 End: 25-72-4217Hgpaetfb Result EncounterJr. Sakina Cardenas DO Work Phone: NOMF External Department UnsolicitedStart: 10-17-2024 End: 31-07-9536Uyxkwd flowsCasandra Hansen MD Work Phone: noms CI FMStart: 10-17-2024 End: 01-12-5870Negvbe Vitor Hansen MD Work Phone: [facility] CI FMStart: 10-17-2024 End: 37-63-7082Llwrl of hemosiderin, quantRenny Hansen MD Work Phone: [facility] HealthcareStart: 10-17-2024 End: 07-08-3102Eebvwnk encounter procedureRenny Hansen MD Work Phone: [facility] CI FMComment on above:Routine general medical examination at health care facility (Primary Dx); ACP (advance care planning); Acute non-recurrent sinusitis, unspecified location; Enlarged lymph nodes in armpit; Injury of left shoulder and upper arm, sequela; Mastitis, left, acute; Left shoulder pain, unspecified chronicity; Abnormal mammogram; Phlebitis of left upper extremityStart: 10-17-2024 End: 09-84-0991bpxnefkiivLIXFME B BERRYNot AvailableStart: 10-16-2024 End: 99-24-7588Ubyougf encounter procedureRenny Hansen II Work Phone: [facility] for Breast CarStart: 10-16-2024 End: 64-34-4488wqxvvaszyeQuvmei Berry II Work Phone: [facility] Work Phone: Start: 10-09-2024 End: 51-79-2385Eepevplux Result EncounterGeneric External Data ProviderNOMS External Department UnsolicitedStart: 10-09-2024 End: 22-26-5195Jrlfnxtol Result EncounterGeneric External Data ProviderNOMS External Department UnsolicitedStart: 10-04-2024 End: 01-96-1910ifxxoyonarAFWH C LAFFAYNot AvailableStart: 10-04-2024 End: 91-06-7856Rkoeiv outpatient new 45 minutesPaul C Laffay DO Work Phone: [facility] ST GENSComment on above:Enlarged lymph nodes in armpit (Primary Dx)Start: 10-03-2024 End: 78-07-4285Bamufwfvo Result EncounterGeneric External Data ProviderNOMS External Department UnsolicitedStart: 10-03-2024 End: 48-71-6589Oanvwhrjv Result EncounterGeneric External Data ProviderNOMS External Department UnsolicitedStart: 10-02-2024 End: 71-09-6819Padeknmo Result EncounterKatharina Toledo 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 Work Phone: [facility] External Department UnsolicitedStart: 10-02-2024 End: 80-65-0625Ooxqvnsb Result EncounterKatharina Toledo 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 Work Phone: [facility] External Department UnsolicitedStart: 10-02-2024 Registered RecurringDaberger hospital [facility] II [facility] Phone: [facility] Work Phone: Start: 09-25-2024 End: 78-20-7617xsmosjmnyoKwrmvb Hansen II Work Phone: [facility] Work Phone: Start: 09-25-2024 End: 24-54-8206Nbqrvma encounter procedureDaniel Hansen II Work Phone: [facility] Work Phone: Start: 09-24-2024 End: 44-39-4451ymhnqlzlokKNNDSPaulding County Hospitaltart: 09-19-2024 End: 06-39-2028hlrycikxgwKEM C MILLERNot AvailableStart: 09-19-2024 End: 53-31-1719Iiflmz outpatient visit 25 minutesLuisana Leal 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 Work Phone: noms CI FMComment on above:Acute cystitis with hematuria (Primary Dx); Burning with urination; Centrilobular emphysema (CMS/HCC); Morbid (severe) obesity due to excess calories (CMS/HCC); Body mass index (BMI) 40.0-44.9, adult (CMS/HCC); Chronic obstructive pulmonary disease, unspecified (CMS/HCC); Pulmonary hypertension, unspecified (CMS/HCC); Need for vaccinationStart: 09-18-2024 End: 49-46-1113Plbthy flowsheetChristopher Jose Roberto DO Work Phone: noms [address] [facility]TEStart: 09-18-2024 End: 66-45-0337Fwrgkj flowsheetChristopher Jose Roberto DO Work Phone: noms [address] [facility]TEStart: 09-18-2024 End: 31-76-4109Derigz outpatient new 45 minutesChristopher Jose Roberto DO Work Phone: noms [address] ROUTEComment on above:Axillary lymphadenopathy (Primary Dx); Neck pain on left side; Left arm painStart: 09-18-2024 End: 52-92-2525cdyzihxmhnUFEKFHGHPGF HASSETTNot AvailableStart: 09-14-2024 End: 78-22-2551LpxujjBxjptq B Berry MD Work Phone: NOUD CI FMComment on above:Persistent atrial fibrillation (HCC) (CMS/HCC)Start: 09-10-2024 End: 22-81-1723uynidqfmjvVxenpte Vytilianaas Katherine CUBAFacility:[facility] [place] Start: 08-24-2024 End: 39-08-6644Apxypfn encounter Bruce Hansen II Work Phone: [facility] [place] Work Phone: Start: 08-24-2024 End: 43-34-4606xcadikpcwhMhtpwqh MeyerFacility:[facility] Start: 08-24-2024 End: 99-12-4756Uhigvlhf Result EncounterKatharina Toledo NP Work Phone: noms External Department UnsolicitedStart: 08-24-2024 End: 61-82-9638Tvtepnbk Result EncounterKatharina Toledo NP Work Phone: noms External Department UnsolicitedStart: 08-24-2024 End: 26-23-7905Tdqzugj encounter procedureRenny Hansen II Work Phone: [facility] Work Phone: Start: 08-20-2024 End: 17-81-5768qsjamptztpZjicmbfGarima Murphy MDFacility:[facility] [place] Start: 08-16-2024 End: 83-19-1968Xigvdl flowsCasandra Hansen MD Work Phone: NOMS CI FMStart: 08-16-2024 End: 40-46-3548Mdduyf Vitor Hansen MD Work Phone: noms CI FMStart: 08-16-2024 End: 93-50-6326xewlghzznmEZZYER B BERRYNot AvailableStart: 08-16-2024 End: 98-62-5049Lppzvz outpatient visit 25 minutesRenny Hansen MD Work Phone: noms CI FMComment on above:Iron deficiency anemia due to chronic blood loss (Primary Dx); Persistent atrial fibrillation (HCC) (CMS/HCC); Gastroesophageal reflux disease without esophagitis; Acute non-recurrent sinusitis, unspecified location; NauseaStart: 08-08-2024 End: 57-23-2534Roajmhljl Result EncounterRenny Hansen MD Work Phone: noms External Department UnsolicitedStart: 08-08-2024 End: 38-66-2672Pkknlrbji Result EncounterRenny Hansen MD Work Phone: noms External Department UnsolicitedStart: 08-02-2024 End: 13-67-9138Mutfve Vitor Hansen MD Work Phone: noMS CI FMStart: 08-02-2024 End: 56-55-9393Nxznom Vitor Hansen MD Work Phone: noMS CI FMStart: 08-02-2024 End: 64-75-5919Pvgehz outpatient visit 25 minutesRenny Hansne MD Work Phone: NOMS CI FMComment on above:Iron deficiency anemia due to chronic blood loss (Primary Dx); Persistent atrial fibrillation (HCC) (CMS/HCC); NauseaStart: 08-02-2024 End: 78-53-1876aqxrokspdtDFVOYQ B BERRYNot AvailableStart: 07-25-2024 End: 51-68-7284Waefnonmm encounterEleanor SANTOS Work Phone: NOMS CI FMStart: 07-24-2024 End: 48-93-3289Qvcooi flowsLyubov Dumont PA Work Phone: NOMS CI FMStart: 07-24-2024 End: 24-39-9194Veopaj Jacquelyn SANTOS Work Phone: NOMS CI FMStart: 07-24-2024 End: 29-00-1500Wlytaptjn Result EncounterEleanor Dumont PA Work Phone: NOMS External Department UnsolicitedStart: 07-24-2024 End: 16-16-5828Yrabmj outpatient visit 25 minutesEleanor SANTOS Work Phone: NOMS CI FMComment on above:Cervical radiculopathy (Primary Dx); Neck pain on left side; Radicular pain in left arm; 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; Iron deficiency anemia due to chronic blood loss; Post-nasal drip; Nausea; Pulmonary hypertension (CMS/HCC); Other thrombophilia (CMS/HCC)Start: 07-24-2024 End: 90-75-1524wfxndxdeznBNZTV M HEMMERNot AvailableStart: 07-18-2024 End: 51-09-5220kziwxndnocRTNKSMemorial Health Systemtart: 07-16-2024 End: 71-92-0231KycxxtRcthuzghHenri Calvillo NP Work Phone: NOMS CWM FMComment on above:Essential hypertension (CMS/HCC)Start: 07-05-2024 End: 36-69-5746Mkaxwn flowsCasandra Hansen MD Work Phone: NOMS CI FMStart: 07-05-2024 End: 58-33-8052Toscjm flowsCasandra Hansen MD Work Phone: NOMS CI FMStart: 07-05-2024 End: 99-88-4923Ithxwjqxs encounterDawest Hansen MD Work Phone: NOMS CI FMStart: 07-05-2024 End: 91-85-4735Cpmewu outpatient visit 40 minutesDawest Hansen MD Work Phone: NOMS CI FMComment on above:Persistent atrial fibrillation (HCC) (CMS/HCC) (Primary Dx); Breast screening; Acute non-recurrent sinusitis, unspecified location; Neck pain on left side; Radicular pain in left arm; Abnormal CT scan, neck; Degenerative disc disease, cervical; Axillary lymphadenopathy; 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; Sigmoid diverticulosis; Irritable bowel syndrome, unspecified typeStart: 06-28-2024 End: 49-41-7656Htozarfoz Result EncounterGeneric External Data ProviderNOMS External Department UnsolicitedStart: 06-28-2024 End: 44-32-8051Uprwreamz Result EncounterGeneric External Data ProviderNOMS External Department UnsolicitedStart: 06-18-2024 End: 53-43-1169FhntmlJpzhsvbz Calvillo 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 Work Phone: NOMS CWM FMComment on above:Acute on chronic diastolic (congestive) heart failure (CMS/HCC)Start: 05-31-2024 End: 17-41-5811Nykque flowsheetBrittany Calvillo 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 Work Phone: NOMS CWM FMStart: 05-31-2024 End: 65-47-6997Gmlssm flowsheetBrittany Calvillo 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 Work Phone: NOMS CWM FMStart: 05-31-2024 End: 35-88-9028Yoeicl outpatient visit 15 minutesBrittany Calvillo 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 Work Phone: noms CWM FMComment on above:Acute on chronic diastolic (congestive) heart failure (CMS/HCC) (Primary Dx)Start: 05-22-2024 End: 06-98-7973qacfvhuryoPpxe Popovich RT(R)RadiologyComment on above:Radiology XRStart: 05-22-2024 End: 38-33-0239Eykiggx encounter procedureTara Cruz RT(R)RadiologyComment on above: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) (Primary Dx); Left shoulder pain, unspecified chronicityStart: 05-22-2024 End: 13-48-2606Fwmkghhcre hospital visit by physicianFederico Bruner 1 Work Phone: RadiologyComment on above:Left shoulder pain, unspecified chronicity [M25.512]Start: 05-16-2024 End: 94-56-8855LvvcewRegsxn Burtonbelen [place] CWM IMComment on above:Chronic left shoulder painStart: 05-09-2024 End: 82-84-9173Xoqawziwh Result EncounterSace Denis MD Work Phone: noms External Department UnsolicitedStart: 05-09-2024 End: 12-04-6387Bsykmnlmr Result EncounterSace Denis MD Work Phone: noms External Department UnsolicitedStart: 05-09-2024 End: 26-98-0367Mzvucz outpatient visit 25 minutesJr. Sakina Cardenas DO Work Phone: noms SWS ORTHOComment on above:Acute pain of left shoulder (Primary Dx); History of reverse total replacement of left shoulder jointStart: 05-02-2024 End: 31-10-4448nqxtdrjuwkRB Shaikh Fawwad Work Phone: [facility] Work Phone: Start: 05-02-2024 End: 36-41-7847Ofbequg encounter procedureMD Shaikh Denis Work Phone: [facility] [place] Work Phone: Start: 04-10-2024 End: 16-25-1670xxmftiqizjEQ Shaikh Fawwad Work Phone: [facility] Work Phone: Start: 04-10-2024 End: 45-20-6973Icxqqdt encounter procedureMD Shaikh Denis Work Phone: [facility]-MRI Main [place] Work Phone: Start: 03-29-2024 End: 05-39-8837uuyjnnmkswMF Shaikh Fawwad Work Phone: [facility] Work Phone: Start: 03-29-2024 End: 50-56-7416Qlswdou encounter procedureMD Shaikh Denis Work Phone: [facility]-Pacemaker CheckStart: 03-02-2024 End: 76-76-0474Gbninqxsz Result EncounterSace Denis MD Work Phone: noms External Department UnsolicitedStart: 03-02-2024 End: 53-61-1268Lybhjmtwk Result EncounterSace Denis MD Work Phone: noms External Department UnsolicitedStart: 03-02-2024 End: 05-34-3990Wzsojon encounter procedureMichael R NILL 101-3767Elftoi-[facility]tnkgGreen [facility] [place] Start: 03-01-2024 End: 62-90-8533Wmrxqcdaa Result EncounterSace Denis MD Work Phone: noms External Department UnsolicitedStart: 03-01-2024 End: 75-13-8254Hzxqhunie Result EncounterSace Denis MD Work Phone: NOMS External Department UnsolicitedStart: 02-22-2024 End: 66-93-5889Foruicxrw Result EncounterGeneric External Data ProviderNOMS External Department UnsolicitedStart: 02-22-2024 End: 53-16-1477Zcoiarryp Result EncounterGeneric External Data ProviderNOMS External Department UnsolicitedStart: 12-12-2023 End: 89-05-9648Dzdcxnmzu Result EncounterGeneric External Data ProviderNOMS External Department UnsolicitedStart: 12-12-2023 End: 93-67-2103Vnczeadve Result EncounterGeneric External Data ProviderNOMS External Department UnsolicitedStart: 67-15-8892Eowsevjazmin Denis MD Work Phone: noMS CWM IMStart: 81-49-0490Cadgynjazmin Denis MD Work Phone: noMS CWM IMStart: 10-11-2023 End: 21-71-2095saejbfddqmPO Shaikh Fawwad Work Phone: [facility] Work Phone: Start: 10-11-2023 End: 72-14-6328Agxauxr encounter procedureMD Shaikh Denis Work Phone: [facility]MRI [facility] [place] Work Phone: Start: 09-08-2023 End: 20-99-0021smiczogbhfSD Shaikh Fawwad Work Phone: [facility] Work Phone: Start: 09-08-2023 End: 18-47-3388Eoderke encounter procedureMD Shaikh Denis Work Phone: [facility]-Pacemaker CheckStart: 74-33-5260Utnyqnh encounter procedureSace Denis MD Work Phone: noMS HealthcareStart: 01-31-2023 End: 82-48-7470mvptmcogujPOVJYLB GIEDRAITISFacility:F9Fisvg: 01-28-2023 End: 52-09-6903bfddjqxhprFQDDPJU GIEDRAITISFacility:N8Kksdj: 01-10-2023 End: 07-63-4522wsrqdrkemqMTXVIR H FAWWADFacility:K3Zdvrc: 12-16-2022 End: 82-89-8685gqniakhvncJH DOCTOR MISCFacility:Q0Eulfx: 12-13-2022 End: 92-43-8496xakpvxirkkYY KIM E KNIGHT .Facility:H6Waezc: 2022 End: 39-34-6232Rliqlmctid and management of inpatientJESSICA RIVER .Facility:H1 Start: 11-26-2022 End: 00-27-9625yzjyoofgvtXY KIM E KNIGHT .Facility:T1Dlogk: 11-10-2022 End: 06-60-7626gguzmazqteAFTBNM H FAWWADFacility:Q1Zyazy: 10-13-2022 End: 18-21-9681zvljgujzavBIXUET H FAWWADFacility:B6Swiun: 09-13-2022 End: 02-23-2635nsnxbnkeahAC KIM E KNIGHT .Facility:N8Xslrx: 08-12-2022 End: 66-51-2838cwywryifxyOS KIM E KNIGHT .Facility:X7Ayiff: 07-13-2022 End: 14-05-4748nopaofwumoOJALEV SAMSA .Facility:R0Qgjwg: 07-13-2022 End: 14-09-9584vgoijnuzqhMO KIM E KNIGHT .Facility:Y2Fmaqk: 07-13-2022 End: 07-80-4580guidldtbfnHBHXIC H FAWWADFacility:W0Spxed: 07-12-2022 End: 29-85-7020bxtifsuwicKP KIM E KNIGHT .Facility:S1Qxatj: 06-13-2022 End: 69-61-9632mxhafowcjsUJMESE H FAWWADFacility:T3Typvo: 05-27-2022 End: 21-64-2264fbvpchleyjCBRPZU SAMSA .Facility:P2Bezmu: 05-19-2022 End: 11-41-0789lxzgkktkdbBKYHQB SAMSA .Facility:V4Boyuh: 05-13-2022 End: 93-80-7791fbznpuozknOAUDKE H FAWWADFacility:G8Kfykd: 04-20-2022 End: 86-46-8637figxyrcxfxDVANTJ SAMSA .Facility:B3Pmakg: 04-12-2022 End: 66-87-1619jpylfdpidwVCOSAP H FAWWADFacility:G2Liqll: 03-30-2022 End: 06-56-9318ffvruycqycJP KIM Britton NATALIA .Facility:Z4Jegqs: 03-12-2022 End: 47-85-4993qcaxycjydsKMMMLW H FAWWADFacility:H0Zstyy: 02-25-2022 End: 27-12-5931fwhssjipggIG KIM E KNIGHT .Facility:P7Ymoxe: 02-24-2022 End: 42-87-4151fwncvuipkrJN KIM E KNIGHT .Facility:J5Wwnfw: 10-07-2021 End: 60-20-3688xrmvavunkdLkave Hykes Other [employer] Other Start: 90-55-5526Nlghky outpatient visit 15 minutes Hong Campos GastroenterologyStart: 08-26-2021 End: 94-44-4706tqnycsyllkSnoof Hykes Other [employer] Other Start: 90-60-7210Cemkvh outpatient new 45 minutesDavialysa HyCandy GastroenterologyStart: 10-11-2020 End: 88-43-3685Deeghbeukr and management of inpatientASIF MAHMOODFacility:[facility] Procedures DateProcedureProcedure DetailPerforming ClinicianStart: 27-12-1254CRM LIPID PROFILE (FASTING)Generic External Data ProviderStart: 44-89-4163JGC CBC WITH AUTO DIFFGeneric External Data ProviderStart: 95-90-2681Yejqn dip stick/tablet rgnt non-auto w/o micrscpSherdeyanira Russo 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 Work Phone: Start: 01-45-9168KDNAWFL TRACT INFECTION (HTRX)Shannon Russo 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 Work Phone: Start: 99-54-5119ENC BASIC METABOLIC PANELGeneric External Data ProviderStart: 86-79-6584GRZ C REACTIVE PROTEINGeneric External Data ProviderStart: 83-84-9740Kwvtiwrozxbegkd of axiPage Memorial Hospitalniel Hansen II Work Phone: Start: 03-87-4106AQS BASIC METABOLIC PANELGeneric External Data ProviderStart: 18-85-8863A-reactive proteinJr. Sakina Ovalle Stepbucky DO Work Phone: Start: 45-76-2108IJBK AND CBCJr. Sakina Ovalle Stepanic DO Work Phone: Start: 29-61-0435Mzajplsklunih rate rbc automatedJr. Sakina Ovalle Stepanic DO Work Phone: Start: 90-07-5124Ibwdsklgi mammographyDaniel Hansen II Work Phone: Start: 18-73-1056Dziurwfsztpwoov of axillaDaniel Hansen II Work Phone: Start: 15-28-2183CY ECHO DOPPLER COMPLETEGeneric External Data ProviderStart: 39-14-0185ETU BASIC METABOLIC PANELGeneric External Data ProviderStart: 66-43-1586CIH LIPID PROFILE (FASTING)Generic External Data ProviderStart: 85-94-1963QJQGJ XRAY Stephon Toledo 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 Work Phone: Start: 84-22-9898DZ of left shoulder with contrast Renny Hansen Work Phone: Start: 40-30-7176Mpmst dip stick/tablet rgnt non-auto w/o micrscpLuisana Leal 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 Work Phone: Start: 28-63-4939Riscjzxy blood count with white cell differential, Savana Toledo 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 Work Phone: Start: 28-95-3391GR UPPER GI W AIR*Renny Hansen MD Work Phone: Start: 90-57-0317YA CINERADIOGRAPHYDaniel B Hansen MD Work Phone: Start: 46-50-3209BLK CBC WITH AUTO DIFFEleanor Dumont PA Work Phone: Start: 20-96-1751RZJRY IRON AND TIBCKrosan Nathan Hemzeinab PA Work Phone: Start: 51-53-9213Nexaxlpkzdp [Mass/volume] in Serum or PlasmaEleanor Dumont PA Work Phone: Start: 06-28-2024 End: 81-09-4397Nz cervical spine w/contrast materialGeneric External Data ProviderStart: 60-41-2769Zxxcy shoulder complete minimum 2 viewsNatjose Buchanan PA-C Work Phone: Start: 93-72-5736BJJ CBC WITH AUTO Luis Denis MD Work Phone: Start: 55-48-0490Uezxzyfuqcxi three-phase bone studyMD Shaikh Cira Work Phone: Start: 81-30-8004WX ECHO DOPPLER COMPLETEShaikh Cira CUBA Work Phone: Start: 49-56-2540DG CHEST 2VSace Denis MD Work Phone: Start: 29-94-5250Curdg shoulder complete minimum 2 viewsGeneric External Data ProviderStart: 71-28-5912Ykk bone density study 1/> sites axial Ferddy Hansen MD Work Phone: Start: 44-36-3993NI DEXA AXIAL SKELETONGeneric External Data ProviderStart: 60-63-5030MS pre/post mri xrayMD Shaikh Cira Work Phone: Start: 70-13-5953BL lumbar spine wo conMD Shaikh Cira Work Phone: Start: 16-97-2037Ygkdiyq pacemaker, device (physical object)Jair ALEXANDER Comment on above:Dr. Nickersonart: 26-05-4291VZEZWI PACE. DUAL MANUELITO IN CHEST SUBCU/FASCIA, OPENPAUL CHACKOStart: 53-27-6984TLSPTUVDJ OF PACEMAKER LEAD INTO R VENTRICLE, PERC APPROACHPAUL CHACKOStart: 10-13-2020 INSERTION OF PACEMAKER LEAD INTO RIGHT ATRIUM, PERC APPROACHPA CHACKOStart: 79-82-9348GkvnwcpnrtrMoheec Fawwad MD Work Phone: Start: 44-65-9715Kcvpbtl of right total knee replacementMichael NILL Start: 40-65-9520Prngoie of left total knee replacement Jair NILL AppendectomyMichael NILL Arthroscopy of kneeMichael NILL Comment on above:rthroscopy of shoulderMichael NILL Comment on above:left shoulder tear repaired 08/25 Cardiac catheter (physical object)Jair NILL Comment on above:12/21/ mild CADColonoscopyMichael NILL Comment on above:2012 repeat 10 yearsLigation of fallopian tubeMichael NILL Repair of musculotendinous cuff of shoulderMichael NILL Comment on above:rightTotal abdominal hysterectomy with bilateral salpingo-oophorectomyMichael NILL Plan of Treatment DateCare ActivityDetailAuthorStart: 26-16-9046Rollzxfay for malignant neoplasm of colonNOMS HealthcareStart: 10-24-2025 End: 76-84-5011Gdjetze encounter kqdiwlkby10/12/2026 11:00 AM EST Office Visit [facility] [place] [facility] [address] [place] [address] Renny Hansen MD [address] [place] [address] [facility] [place] [facility] CenternceStart: 10-17-2025 Medicare Annual Wellness (AWV)Medicare Annual Wellness (AWV)[facility] Start: 07-18-2025 End: 08-59-6601Lopvvkg encounter procedureNOMS [place] MedinceComment on above:ArrivedStart: 72-93-5149NloquncdbTuscarawas Hospitaltart: 05-27-2025 [facility]: 05-22-2025 End: 10-65-7220VlpzknleuTuscarawas Hospitaltart: 70-81-4596SbkepjvuyTuscarawas Hospitaltart: 05-16-2025 End: 42-14-3982Gtdesmx encounter procedureNOMS CI FMComment on above:Arrived Start: 01-84-3549CeaergelkTuscarawas Hospitaltart: 05-15-2025 End: 35-26-7681JomzvaopvTuscarawas Hospitaltart: 52-88-5240DDJZG-19 Vaccine ( season)COVID-19 Vaccine ( season)[facility] Start: 95-48-8583Yuhwfauwf vaccinationInfluenza Vaccine (#1)[facility] Start: 30-39-4547Cbzfthf referralGerman Hospital Work Phone: Start: 77-50-5515VylfsqfwfCrystal Clinic Orthopedic [facility] Start: 04-24-2025 End: 50-72-3964MKZNLWC TRACT INFECTION (HTRX)URINARY TRACT INFECTION (HTRX) Lab Routine Hematuria, unspecified type Expected: 04/24/2025 (Approximate), Expires: 04/24/2026[facility] Work Phone: Comment on above:Expected: 04/24/2025 (Approximate), Expires: 04/24/2026Start: 04-18-2025 End: 19-90-5234Ortryfw encounter fxxqbumom63/07/2025 11:00 AM EDT Office Visit [facility] [place] [facility] [address] [facility] [address] [place] [address] Eleanor Dumont PA [address] [place] [address] ArrivedNOMS [place] MedinceComment on above:ArrivedStart: 02-18-2025 End: 48-49-6785Yamuzov encounter procedureNOMS CI FMComment on above:Arrived Start: 01-14-2025 End: 05-91-9541REM Breast - left diagnosticLeft diagnostic mammogram with tomosynthesis Imaging Routine Abnormal mammogram Expected: 01/14/2025, Expires: 12/15/2025[facility] Work Phone: Comment on above:Expected: 01/14/2025, Expires: 12/15/2025Start: 12-17-2024 End: 72-99-3700Vhdackh encounter procedureNOMS CI FMComment on above:Abnormal mammogram; Enlarged lymph nodes in armpitStart: 11-07-2024 End: 95-26-4923Bnblgjw encounter procedureNOMS SWS ORTHOComment on above:Arrived Start: 11-05-2024 End: 40-80-6805Gfltufk encounter procedureNOMS [address] [facility]Start: 10-30-2024 End: 75-39-3688Mcllhty encounter cmsbbvrae96/18/2025 2:15 PM EST Office Visit [facility] [address] [facility] [address] [place] [address] Dmitriy Duque, DO [address] [facility] [address] [place] [address] [facility]Start: 10-24-2024 End: 54-98-0086Plwoubd encounter acakbcice69/12/2025 2:15 PM EST Office Visit [facility] [address] [place] [phone] Jr. Sakina Cardenas, DO [address] [place] [address] Injury of left shoulder and upper arm, sequela; Left shoulder pain, unspecified chronicityNOMS SWS ORTHOComment on above:Injury of left shoulder and upper arm, sequela; Left shoulder pain, unspecified chronicityStart: 10-17-2024 End: 46-48-3706Rbwiuii encounter procedureNOMS CI FMComment on above:Arrived Start: 10-04-2024 End: 06-09-9520Tlhbosr encounter pkrtggeda16/23/2025 3:45 PM EST Consult [facility] [address] [place] [phone] Dmitriy Duque, DO [address] [place] [address] GENSStart: 11-37-6792Wezqzxx referralGerman Hospital Work Phone: Start: 09-19-2024 End: 12-47-0512Tykddcr encounter fvevssext30/08/2025 3:00 PM EST Office Visit [facility] [address] [place] [address] Luisana Leal, 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 [address] [place] [address] NOMS CI FMStart: 09-19-2024 End: 59-95-3265OACVPAC TRACT INFECTION (HTRX)URINARY TRACT INFECTION (HTRX) Lab Routine Burning with urination Expected: 09/19/2024 (Approximate), Expires: 09/19/2025[facility] Work Phone: Comment on above:Expected: 09/19/2024 (Approximate), Expires: 09/19/2025Start: 09-18-2024 End: 33-61-6079Gflfahl encounter abksgfmif28/07/2025 10:15 AM EST Office Visit [facility] [address] [place] [phone] Salome Cid, DO [address] [place] [address] Neck pain on left sideNOMS [facility] STATE ROUTEComment on above:Neck pain on left sideStart: 09-14-2024 End: 98-88-3405Dxvvidq encounter kdutgivrq48/03/2025 10:00 AM EST Office Visit [facility] [address] [place] [address] Renny Hansen MD [address] [place] [address] NOMS CI FMStart: 38-49-2708BysajjwvwCrystal Clinic Orthopedic Center Start: 03-77-6284SabtmslpyTuscarawas Hospitaltart: 12-26-2024Medicare Annual Wellness (AWV)Medicare Annual Wellness (AWV)NOMS HealthcareStart: 66-19-5044JxjtbfpeaTuscarawas Hospitaltart: 31-03-6951KmfafxaevTuscarawas Hospitaltart: 97-61-3573NcxbhiyekTuscarawas Hospitaltart: 08-23-2024 End: 21-03-0278Nsiugfh encounter ivopbwtbp83/12/2024 11:45 AM EST Office Visit [facility] [address] [place] [address] Renny Hansen MD [address] [place] [address] NOMS CI FMStart: 08-16-2024 End: 61-05-2372Irwzzda encounter oopvyciot59/05/2024 10:30 AM EST Office Visit [facility] [address] [place] [address] Renny Hansen MD [address] [place] [address] NOMS CI FMStart: 08-02-2024 End: 25-68-7346VX Upper gastrointestinal tract and Small bowel Single view W contrast POFL upper GI double contrast w KUB Imaging Routine Nausea Expected: 08/02/2024, Expires: 08/02/2025[facility] Work Phone: Comment on above:Expected: 08/02/2024, Expires: 08/02/2025Start: 08-02-2024 End: 39-33-6301Ciokctd encounter procedureNOMS FMComment on above:Arrived Start: 07-24-2024 End: 85-99-3054AZW W Auto Differential panel - BloodCBC and differential Lab Routine 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 Iron deficiency anemia due to chronic blood loss Expected: 07/24/2024 (Approximate), Expires: 07/24/2025[facility] Work Phone: Comment on above:Expected: 07/24/2024 (Approximate), Expires: 07/24/2025Start: 07-24-2024 End: 77-39-6419Nose + transferrin + TIBCIron + transferrin + TIBC Lab Routine 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 Iron deficiency anemia due to chronic blood loss Expected: 07/24/2024 (Approximate), Expires: 07/24/2025[facility] Comment on above:Expected: 07/24/2024 (Approximate), Expires: 07/24/2025Start: 07-19-2024 End: 25-26-3025Kkugmfs encounter riyuwzjbx31/07/2024 12:00 PM EST Procedure Visit [facility] [address] [id number] [facility]: 07-05-2024 End: 12-25-3703AOT AND NERVE CONDUCTION STUDYEMG AND NERVE CONDUCTION STUDY Neurology Routine Neck pain on left side Radicular pain in left arm Expected: 07/05/2024 (Approximate), [facility] Expected: 07/05/2024 (Approximate), Expires: 07/05/2025Start: 07-05-2024 End: [id number] Breast - bilateral ScreeningBilateral screening mammogram Imaging Routine Breast screening Expected: 07/05/2024 (Approximate), Expires: 09/04/2025[facility] Work Phone: Comment on above:Expected: 07/05/2024 (Approximate), Expires: 09/04/2025Start: 07-05-2024 End: 77-64-2935Gygmvij encounter procedureNOMS FMComment on above:Arrived Start: 05-31-2024 End: 06-04-6473Alysutt encounter [email or web address]/19/2024 1:30 PM EDT Office Visit [facility] [address] [place] [phone] Jazmín Calvillo, 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 [address] [place] [phone] ArrivedNOMS CWM FMComment on above:ArrivedStart: 05-22-2024 End: 08-21-2024 reactive protein [Mass/volume] in Serum or PlasmaC-REACTIVE PROTEIN Lab Routine 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) Expected: 05/22/2024, Expires: 08/21/2024[facility] ClinicComment on above:Expected: 05/22/2024, Expires: 08/21/2024Start: 05-22-2024 End: 87-80-2241DIH W Auto Differential panel - BloodCOMPLETE BLOOD COUNT AND DIFFERENTIAL Lab Routine 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) E xpected: 05/22/2024, Expires: 08/21/2024[facility] ClinicComment on above: Expected: 05/22/2024, Expires: 08/21/2024Start: 05-22-2024 End: 61-43-2793Gtrcnibbazu sedimentation rateSEDIMENTATION RATE, WESTERGREN Lab Routine 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) Expected: 05/22/2024, Expires: 08/21/2024[facility] ClinicComment on above:Expected: 05/22/2024, Expires: 08/21/2024Start: 05-22-2024 End: 76-88-9638Uxjbdrz encounter /10/2024 2:00 PM EDT Office Visit [facility] [address] [place] [phone] Jazmín Calvillo, 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 [address] [place] [address] [facility] FMStart: 39-75-2041Ycnza-19 Vaccine ( season)Covid-19 Vaccine ( season)[facility] 05-13-2024 Influenza vaccinationInfluenza Vaccine (#1)[facility]: 05-09-2024 End: 67-18-8223Qckqruo encounter ctobwiakl66/28/2024 10:00 AM EDT Office Visit [facility] [address] [place] [phone] Jr. Sakina Cardenas, DO [address] [place] [address] [facility] ORTHOStart: 11-07-2023 End: 00-74-2352Vvwvixq encounter iuygzfdxb23/26/2024 2:30 PM EST Office Visit [facility] [address] [place] [address] Shaikh Denis MD [address] [place] [phone] [facility] IMStart: 10-17-2023 End: 32-52-5996Qgdehdf encounter dovalhqqr70/05/2024 10:15 AM EST Office Visit [facility] [address] [place] [address] Shaikh Denis MD [address] [place] [address] ArrivedNOMS CWM IMComment on above:ArrivedStart: 09-12-2023 Advance Directive DiscussionAdvance Directive DiscussionCleCoshocton Regional Medical Centertart: 11-78-1175Qbnxttrxn for osteoporosisBone Density ScreeningCleCoshocton Regional Medical Centertart: 02-59-1474Vkvhddsmw B Vaccines (1 of 3 - Risk 3-dose series)Hepatitis B Vaccines (1 of 3 - Risk 3-dose series)[facility] HealthcareStart: 12-20-1094Fldnkwml Vaccine (1 of 2)Shingrix Vaccine (1 of 2)[facility] 11-30-1992 Diabetes ScreeningDiabetes ScreeningThe MetroHealth Systemtart: 91-24-7348Gglowvcqf A Vaccines (1 of 2 - Risk 2-dose series)Hepatitis A Vaccines (1 of 2 - Risk 2- dose series)[facility] HealthcareStart: 81-69-0497Xsest microalbumin profile DTaP,Tdap,Td Vaccine (1 - Tdap)[facility]: 56-79-7812Pwfpeeb ScreeningAnxiety ScreeningThe [facility]Health Systemtart: 01-88-8040Szvqvykret Screening Depression ScreeningThe [facility]Health Systemtart: 15-37-3720Tluhychrt C screening Hepatitis C ScreeningThe [facility]Health Systemtart: 52-23-6569HMmV/Tdap/Td Vaccines (1 - Tdap)DTaP/Tdap/Td Vaccines (1 - Tdap)[facility]Start: 96-09-5211Zbzpxhdyt for malignant neoplasm of colonENCOMPASS HEALTH HealthcareCBC W Auto Differential panel - BloodCBC auto differential Lab Routine 10/02/2024 11:54 AM [facility] Work Phone: CBC W Auto Differential panel - [facility] Work Phone: Comment on above:Ordered: 10/24/2024omprehensive metabolic 1999 panel - Serum or [facility] Comprehensive metabolic 1999 panel - Serum or [facility] HealthCom[facility] metabolic 1999 panel - Serum or [facility] HealthCT Shoulder - left W contrast [facility] End: 95-31-8986NA Shoulder - left WO contrastCT SHOULDER WO IVCON LEFT Radiology Routine 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 Work Phone: Comment on above:1 Occurrences starting 05/22/2024 until 06/21/2025Iron and Iron binding capacity panel - Serum or PlasmaIron and TIBC Lab Routine 08/24/2024 2:30 PM [facility] Work Phone: Iron and Iron binding capacity panel - Serum or Plasma Iron and TIBC Lab STAT 10/02/2024 11:54 AM [facility] Work Phone: Patient EducationKnow your [facility] Work Phone: Patient referralGerman Hospital Work Phone: [facility] Immunizations Immunization DateImmunizationNotesCare UnhpbroqPwmbchmv11-87-2823Anogmabqr, High-dose Seasonal, Quadrivalent, Preservative FreeLuisana Leal 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 Work Phone: [facility] HealthGamrjvucsh68-22-0053ehnvabxde virus vaccine, unspecified formulationEleanor Dumont PA Work Phone: [facility] HealthRelkhrnuvi66-68-7376xpybkrolk virus vaccine, unspecified formulationMichael NILL [phone]-FdfkfGreen Cross [facility] [place] 46-93-7766Znckmzket, Seasonal, Quadrivalent, AdjuvantDolly Denis MD Work Phone: [facility] HealthYwxioykjho41-90-6024HEV, recombinant, protein subunit RSVpreF, adjuvant reconstitu, 120mcg/0.5mL, PF (Arexvy)Shaikh Cira CUBA Work Phone: [facility] HealthPcbonttkfy84-06-0039hjtzlukts virus vaccine, unspecified formulationMichael NILL [phone]-IhgbtOhiohealth Nelsonville Health Center 53-38-1522Mtqpdzudw, Seasonal, Quadrivalent, AdjuvantDolly Denis MD Work Phone: [facility] HealthKwhbsgqqmr21-04-4862kbexixjim virus vaccine, unspecified formulationMichael NILL [phone]-UgsafOhiohealth Nelsonville Health Center 63-65-1574Sppmgizzb, Seasonal, Quadrivalent, AdjuvantDolly Denis MD Work Phone: [facility] HealthBndzeaezeq18-56-3584qmpmjyhobgtk polysaccharide vaccine, 23 valentMichael NILL [phone]-GpsvqOhiohealth Nelsonville Health Center 41-48-4659ZIZT-CoV-2 (COVID-19) mRNA-1273 vaccineMichael NILL [phone]-QoysoOhiohealth Nelsonville Health Center 15-66-7011RKSK-CoV-2 (COVID-19) mRNA-1273 vaccineMichael NILL [phone]-VbkfwOhiohealth Nelsonville [facility] Center 64-82-2969yhewpiuvd virus vaccine, unspecified formulationMichael NILL [phone]-LafxnOhiohealth Nelsonville Health Center 76-38-0536Fsymxgzyy, Seasonal, Quadrivalent, AdjuvantDolly Denis MD Work Phone: [facility] HealthStvzqobyng59-64-8695ngqqjdbzidqe conjugate vaccine, 13 valentMichael NILL [phone]-ZyzbeOhiohealth Nelsonville Health Center 09-46-5698vruxlyckl virus vaccine, unspecified formulationMichael NILL [phone]-QbuccOhiohealth Nelsonville [facility] Center 32-66-8671ybneufpdr, high dose seasonal, preservative-freeShaikh Cira CUBA Work Phone: [facility] HealthWmkalxqsjy29-26-7725oumxkdvfd virus vaccine, unspecified formulationMichael NILL [phone]-FnmtpOhiohealth Nelsonville Health Center 65-06-5252bcwsjyclgvid conjugate vaccine, 13 valentMichael NILL [phone]-YwhmeOhiohealth Nelsonville Health Center 83-65-6077Pafqakch trivalent influenza vaccine, adjuvanted, preservative free Shaikh Cira CUBA Work Phone: [facility] HealthYkwezjsnxv87-75-8338uhgmmownj virus vaccine, unspecified formulationMichael NILL [phone]-ChxiwOhiohealth Nelsonville Health Center 29-62-5610Sifnmwrd trivalent influenza vaccine, adjuvanted, preservative free Shaikh Cira CUBA Work Phone: [facility] HealthDwcsrmccer45-61-2521vovrxyhgg virus vaccine, unspecified formulationMichael NILL [phone]-IkocxOhiohealth Nelsonville [facility] Center 53-83-8023pavqkkven, injectable, quadrivalent, contains preservativeSace Denis MD Work Phone: [facility] HealthJwkpkjepkw14-39-7453csekctrrb virus vaccine, unspecified formulationMichael NILL [phone]-JgilaOhiohealth Nelsonville Health Center 56-15-7532tnqejorm influenza, intradermal, preservative freeShaikh Cira CUBA Work Phone: [facility] HealthKurqrdrxuo08-30-3650gwanbyadb virus vaccine, unspecified formulationMichael NILL [phone]-RkxgdOhiohealth [facility]ville [facility] Center 62-33-3395asmgczrct, injectable, quadrivalent, contains preservEleazar Denis MD Work Phone: [facility] HealthCnnnrvwsks71-55-8610igelyyjua virus vaccine, unspecified formulationMichael NILL [phone]-NbhyfOhiohealth Nelsonville Health Center 08-86-7803jpnpcnmkj, seasonal, injectableShaikh Cira CUBA Work Phone: [facility] Payers DatePayer CategoryPayerPolicy [id number] 2025Medicare (Managed Care)[employer] Member Subscriber Plan / Payer (Effective 2024-Present) Name: Breann Starks Relation to Subscriber: Self Name: Breann Starks Payer ID: Not on file Type: Not on file Address: [address] [place], [place] [id number]Uthc-ray [id number] 2024Medicaid [id number] Health [id number] Health Tlswaerkn17-92-6586Brrputg Care HMO (unspecified)AETNA AETNA [id number] 2023-Present [address] [place] [address] HMO [id number] 2007Medicare [id number] [id number] 1960 Private Health [id number] .1.183539.3.579.2.52350-69-4780Rygxcec7936507 10.28.830.1.109807.3.579.2.05049-43-8717Vhbnpmo0874873 2.1.610933.3.579.2.61263-65-0202Txhaizf3013853 2.16.840.1.049572.3.579.2.96657-00-3089Tigbbvp1979997 2.16.840.1.124347.3.579.2.98511-23-5515Nzscdyo3288634 2.16.840.1.701032.3.579.2.26061-30-2614Iwyjjbw8769558 2.16.840.1.571445.3.579.2.56326-28-0102Hkggzgd6582467 2.16.840.1.209746.3.579.2.47235-69-4942Tlobyjk1792952 2.16.840.1.004075.3.579.2.06659-03-6572Nfeajpj2493747 2.16.840.1.442566.3.579.2.00956-33-3153Vilyhfc3930031 2.16.840.1.275999.3.579.2.74587-88-7526Ytjziny5905139 2.16.840.1.077998.3.579.2.63802-62-8178Xdrbsds2619087 2.16.840.1.696288.3.579.2.43537-07-4814Rwaapxi3384866 2.16.840.1.756446.3.579.2.37112-80-5155Jjpkxdf7349159 2.16.840.1.185372.3.579.2.43063-01-2050Ibysjxm0084033 2.16.840.1.655096.3.579.2.22101-29-3873Cegsvyb4686593 2.16.840.1.950413.3.579.2.60344-02-9622Jubuedm9880192 2.16.840.1.515038.3.579.2.10872-49-8516Bblxjtk6268433 2.16.840.1.432145.3.579.2.29465-99-2577Ntnpbxn5697058 2.16.840.1.819602.3.579.2.95590-95-4013Rfzgwjs6428022 2.16840.1.848532.3.579.2.25898-58-1807Hazyhkg7514390 2.16840.1.042935.3.579.2.39082-53-4157Kpddltf6651803 2.840.1.077422.3.579.2.57522-66-9878Slscfvb7143001 2.840.1.179406.3.579.2.48988-47-7824Lekzyim8253100 2.840.1.652642.3.579.2.66839-94-1003Lrxsffh6420706 2.840.1.958410.3.579.2.24728-94-7984Xhemfna0966973 2.840.1.068057.3.579.2.41252-70-1291Dvpobmv412216258 2.0.1.725434.3.579.2.30525-53-2894Xcwypxm368943448 2.840.1.195554.3.579.2.54518-22-7079Yxfzzjq191255729 2.840.1.561217.3.579.2.63863-99-2439Rphvvgz630399685 2.840.1.512050.3.579.2.20751-67-5785Yifmjow131567248 2.840.1.229197.3.579.2.54385-47-8032Yegdekw654364706 2.0.1.262038.3.579.2.00732-68-5440Tquwntr509866877 2.840.1.519701.3.579.2.67504-16-5996Jtjmxya54862777 2..1.297031.3.579.2.838166-87-1550Ywswlne06038855 2.840.1.183798.3.579.2.076512-21-4113Eawxmbk19854263 2.0.1.252503.3.579.2.688562-31-4703Wpzsrbs04186389 2..1.471422.3.579.2.846273-45-0433Jizzmvh67600266 2..1.834182.3.579.2.927569-33-2037Gjjnwfa00941685 2.0.1.062734.3.579.2.519658-98-7997Nvgcquf0706260 2..1.178393.3.579.2.001467-45-1897Gbfrqlg9215462 2..1.926491.3.579.2.844817-17-2504Phzbfkd7908991 2..1.844129.3.579.2.970093-77-4241Ccctqck2683069 2..1.073940.3.579.2.905212-72-4345Kcoyldf0601478 2.840.1.998862.3.579.2.216573-35-1975Bxpcnks5045079 2.840.1.909628.3.579.2.042844-07-7525Bfbpqfu8390870 2.16.840.1.198956.3.579.2.751293-97-6567Idxfggu5400542 2..840.1.500266.3.579.2.600590-23-6703Abksotf1076572 2.840.1.731718.3.579.2.976752-47-8707Zfzoxbn4737506 2.840.1.374541.3.579.2.632249-16-4432Losoffa38266757 2.840.1.819397.3.579.2.89948-17-9089Dlhbzgv35969233 2.840.1.132807.3.579.2.727MedicareMedicare [id number] z49hpdn8-7320-4uc6-e8cp-plj631j2b0b3QcjxhxpJdjdvz of Zrhmv447179-43 58686e06-2472-9l10-29e7-7b59l2s11006Fbnadfp39974289 2.840.1.575080.3.579.2.824Uhsdvnu56267894 2.840.1.331348.3.579.2.531 Uwgqegz69049818 2.840.1.492845.3.579.2.473Rioawup27760635 2.840.1.886247.3.579.2.308Mgrtcot87700287 2.0.1.221558.3.579.2.531 Social History DateTypeDetailFacilityStart: 08-30-2023 End: 12-32-5776Xwg [facility] HealthcareStart: 64-14-7841Oum [facility] 08-18-2023 End: 26-22-6882Xpemvvm smoking status NHISEx-smokerENCOMPASS HEALTH HealthcareStart: 68-22-3869Lcktmpc of tobacco useCurrent smokerENCOMPASS HEALTH HealthcareStart: 09-12-1967 History of tobacco useCigarette SmokerENCOMPASS HEALTH HealthcareStart: 53-44-0543Ixbldba intakeNot AskedNOSaint John's HospitalStart: 08-30-2023 End: 86-73-2015Yryvalr of Social functionNOLA HealthcareWithin the last year, have you been afraid of your partner or ex-partner?NoNOMS HealthcareStart: 51-16-1890Aco often do you attend sikh or muslim services?Patient refused [facility] HealthcareDo you belong to any clubs or organizations such as sikh groups, unions, fraMesh [place] or athletic groups, or school groups?YesNOMS HealthcareAre you now , , , , never or living with a partner?WidowedNOLA HealthcareDo you feel stress - tense, restless, nervous, or anxious, or unable to sleep at night because yourmind is troubled all the time - these days [OSQ]Not at allNOLA Healthcare(I/We) worried whether (my/our) food would run out before (I/we) got money to buy more.DK or RefusedNOLA HealthcareStart: 28-97-8523Arbslpl Comment(Audit-C) : NegativeCarondelet HealthStart: 48-26-5198Hph Assigned At BirthNot on fileNOLA HealthcareStart: 04-27-2013 End: 77-52-1190Vxmggwn smoking status NHISNever smoked tobacco (finding) [facility]: 08-37-3233Dgxzwkm use and exposure Smokeless tobacco non-userThe [facility]Health Systemtart: 05-22-2024 End: 99-59-5975Rbjgtlogl beverage intakeCurrent drinker of alcohol (finding) [facility] HealthHistory of tobacco usePassive smokerCarondelet HealthStart: 64-71-8739Nvuwxdd CommentOCCASSIONALCarondelet HealthStart: 09-25-2024 End: 29-53-5059XzjXgyqqg (finding)[facility] CenterAre you now , , , , never or living with a partner? Living with partnerNOLA HealthcareDo you feel stress - tense, restless, nervous, or anxious, or unable to sleep at night because yourmind is troubled all the time - these days [OSQ]To some extentNOLA Healthcare(I/We) worried whether (my/our) food would run out before (I/we) got money to buy more.Never trueNOMS HealthcareHow often do you need to have someone help you when you read instructions, pamphlets, or other written material from your doctor or pharmacy [SILS]NeverNOMS Healthcare Work Phone: Goals DatePatient GoalDesired Activity/State Functional Status RlmmXtdkkonsfoJwplitOzeljcde83-36-8052Ocklajg Health Questionnaire 2 item (PHQ- 2) [Reported][facility]let HealthGbtcnldzed21-79-2660Verrchu Health Questionnaire 2 item (PHQ- 2) [Reported][facility]let HealthSmmhbticth72-59-7507Katnwrh Health Questionnaire 2 item (PHQ- 2) [Reported][facility] HealthGumzkzcpgj28-98-8163Uekgioa Health Questionnaire 2 item (PHQ- 2) [Reported][facility] HealthSqtvicpspn27-98-5959Spokj score [AUDIT-C]-1 10/10/2024 2:26 PM EST Carlene Yan LPNNOMS Xvvzmdegoj20-92-8484Jqslrtwiem statusPatient declined 10/10/2024 2:26 PM Carlene Izaguirre LPN Patient declinedCarondelet HealthQzpeewpjnt24-54-9716Ngnepxc Health Questionnaire 2 item (PHQ-2) [Reported][facility]delet HealthVcnzgnvwyp91-52-3031Eyqnpxsekk StatusN/[facility]ixMer[facility] Ogxbscr82-01-9720Piwxwcg Health Questionnaire 2 item (PHQ-2) [Reported] [facility] HealthMcwzbagngt16-34-6875Ohrzstl Health Questionnaire 2 item (PHQ-2) [Reported] [facility] Clinical Notes 08-26-2021 to 07-24-2025 Note Date & MmnmErnpWtpmjnuj92-68-3159 NoteUrology Office/Clinic Note Chief Complaint new pt. Referral HPI Staff New Pt. Referral per Dr. Renny Hansen due to asymptomatic microscopic hematuria Pt states she has a UTI recently, pt states she has no symptoms Denies pain or burning, denies visible blood Stress incontinence, yes wears day due to having a cough, changes every 2-3 hours, yes some urge incontinence Denies sensory awareness incontinence PVR 227 History of Present Illness Tests reviewed: reviewed UA, referral records including external UA, notes, culture I have reviewed the previous health record information and history for this patient from external providers. I have reviewed and verified the staff HPI to be accurate for this encounter. Review of Systems PHQ Score Initial Depression Screen Score: 0 SCORE ROS - Provider Constitutional: denies weight loss, denies hot flashes. Eyes: denies eye problems. Gastrointestinal: denies nausea, denies vomiting. Cardiovascular: denies chest pain or angina. Integumentary: no dryness Musculoskeletal: denies musculoskeletal symptoms. ENMT: denies otolaryngeal symptoms. Respiratory: no shortness of breath. Heme/Lymph: denies easy bleeding tendency, denies easy bruising tendency. Psychiatric: no confusion, no anxiety. Genitourinary: See HPI. Physical Exam Vitals & Measurements HR: 60(Peripheral) RR: 18 BP: 134/64 HT: 59 in HT: 150 cm WT: 222.667 lb WT: 101 kg BMI: 44.89 General Appearance: alert , no acute distress, well nourished, well developed female. Assessment/Plan Breann is a 79 [address] referred by Dr. Hansen for microscopic hematuria. Pt accompanied by life partner today 1. Asymptomatic microscopic hematuria (R31.21: Asymptomatic microscopic hematuria) UA 04/24/25 - positive for blood 07/18/25 - positive for blood no micro noted in records UCx/PCR 04/24/25 - E. coli tx'd Cipro 250 mg BID x 5 days. Asx. No change in sx. Smoker > 25 years. Quit 30 years ago. Has had trace blood for years in urine. Daughter as well. UA today shows trace-intact blood. Asx. Discussed potential etiologies and implications of hematuria with patient. These include: Prostatic disease, trauma, Tumor, infection/inflammation, stones, period/menses (pseudohematuria), obstructive uropathy (urolithiasis, stricture, etc), nephritis, Tuberculosis, thrombosis, and hematologic. Urologic malignancy is more common in patients with gross hematuria (23%) than in patient with microscopic hematuria (5%). In adults with microscopic hematuria, the initial evaluation fails to identify an etiology in 43% of patients. Approximately 1-3% of these patients eventually develop a urologic malignancy. In adults with gross hematuria, the initial evaluation fails to identify an etiology in 8% of patients. Approximately, 18% of these patients eventually develop a urologic malignancy. Work-up: 1. UA, urine culture - sent today. If confirmed: 2. CT urogram 3. Cystoscopy Will call pt with results Ordered: 20299 Measure Post Void residual urine and/or bladder capacity by US- non-imaging Urinalysis with Micro Urinalysis with Micro Urinalysis with Micro SP Urinalysis with Micro SP Urine Culture Urine Culture Urnls Dip Stick Auto w/o Microscopy POC 80092 2. Mixed incontinence urge and stress (N39.46: Mixed incontinence) Shares leakage with coughing and sneezing, wears a pad constituently she has to change q2-3hrs. BEHZAD>> UUI. Worse with lasix as expected Briefly spoke regarding possible options and pt can consider in the future. Not a candidate for mgnt d/t incomplete emptying seen on PVR of 227 ml today. Consider [employer], information provided - Consider mgnt options in the future if bothersome to pt - emptying maneuvers, timed voids -Avoid bladder irritants. 3. Incomplete emptying of bladder (R33.9: Retention of urine, unspecified) PVR 227 ml. Pt feels she is emptying well. See #2. Discussed bladder pathophysiology and emptying maneuvers -timed voids, see #2 Ordered: Urinalysis with Micro Urinalysis with Micro Urinalysis with Micro SP Urinalysis with Micro SP Urine Culture Urine Culture 4. Asymptomatic bacteriuria (R82.71: Bacteriuria) UCx/PCR 04/24/25 - E. coli tx'd Cipro 250 mg BID x 5 days. Asx. No change in sx. Discussed difference between UTI and asymptomatic bacteruria. Treatment for the latter not recommended. Incomplete emptying likely contributing. See #3 Follow-up With When Contact Information Fernando CUBA, Danna Piña, URL, URO [address] [facility], [address] [address]- Additional Instructions: PRN Patient Education Urinary Incontinence I, Bettye Mcgregor, personally scribed for Dr. King on 07/24/2025 12:03:53. . Documentation recorded by the scribBettye jarquin, accurately reflects the services(s) I performed and decisions made by me. Authenticated by Dr. King on 07/24/2025 13:08:44. (more content not included)...[facility] Comment on above:Result Comment: Electronically Signed By: Fernando CUBA, Danna Ayana\.br\Date and Time Signed: 07/24/25 13:08EST\.br\Electronically Co-Signed By: Bettye Mcgregor\.br\Date and Time Co-Signed: 07/24/25 12:04 EST\.br\Electronically Co-Signed By: Bettye Mcgregor\.br\Date and Time Co- Signed: 07/24/25 12:37ANE96-56-3954 NotePatient Education Urology Urinary Incontinence Urinary incontinence refers to a [...] A physical exam. ??? Tests, such as: ? Urine tests. ? X-rays of your kidney and bladder. ? Ultrasound. ? CT scan. ? Cystoscopy. In this procedure, a health care provider inserts a tube with a light and camera (cystoscope) through the urethra and into the bladder to check for problems. ? Urodynamic testing. These tests assess how well the bladder, urethra, and sphincter can store andrelease urine. There are different types of urodynamic tests, and they vary depending on what the test is measuring. To help diagnose your condition, your health care provider may recommend that you keep a log of when you urinate and how much you urinate. How is this treated? Treatment for this condition depends on the type of incontinence that you have and its cause. Treatment may include: ??? Lifestyle changes, such as: ? Quitting smoking. ? Maintaining a healthy weight. ? Staying active. Try to get 150 minutes of moderate-intensity exercise every week. Ask your healthcare provider which activities are safe for you. ? Eating a healthy diet. ? Avoid high-fat foods, like fried foods. ? Avoid refined carbohydrates like white bread and white rice. ? Limit how much alcohol and caffeine you drink. ? Increase your fiber intake. Healthy sources of fiber include beans, whole grains, and fresh fruits and vegetables. ??? Behavioral changes, such as: ? Pelvic floor muscle exercises. ? Bladder training, such as lengthening the amount of time between bathroom breaks, or using the bathroom at regular intervals. ? Using techniques to suppress bladder urges. This can include distraction techniques or controlledbreathing exercises. ??? Medicines, such as: ? Medicines to relax the bladder muscles and prevent bladder spasms. ? Medicines to help slow or prevent the growth of a man's prostate. ? Botox injections. These can help relax the bladder muscles. ??? Treatments, such as: ? Using pulses of electricity to help change bladder reflexes (electrical nerve stimulation). ? For women, using a biomedical equipment technician to prevent urine leaks. This is a small, tampon-like, disposable device that is inserted into the urethra. ? Injecting collagen or carbon beads (bulking agents) into the urinary sphincter. These can help thicken tissue and close the bladder opening. ? Surgery. Follow these instructions at home: Lifestyle ??? Limit alcohol and caffeine. These can fill your bladder quickly and irritate it. ??? Keep yourself clean to help prevent odors and skin damage. Ask your health care provider (more content not included)...[facility] 07-18-2025 History of Present illness Narrative* Renny Hansen MD - 07/18/2025 11:30 AM EST Images from the original note were not included. Subjective Patient ID: Breann Starks is a 79 y.o. female who presents for Hypertension and change in urine color. Congestive Heart Failure Patient presents for re-evaluation of congestive heart failure. Patient's current complaints are none. She denies chest pain, chest pressure/discomfort, irregular heart beat, near-syncope, paroxysmalnocturnal dyspnea, and syncope. She states she is compliant all of the time with her medications. She is going for her iron infusion today with hematology Hypertension Patient is here for follow-up of elevated blood pressure. Cardiac symptoms: none. Patient denies chest pain, claudication, dyspnea, irregular heart beat, near-syncope, orthopnea, palpitations, paroxysmal nocturnal dyspnea, syncope, and tachypnea. Cardiovascular risk factors: advanced age (older than 55 for men, 65 for women), hypertension, and obesity (BMI >= 30 kg/m2). Pt states the last month her urine has seemed like it is a much brighter yellow Denies fever,pelvic pain/pressure,dysuria,gross hematuria Hypertension Congestive Heart Failure Restless Legs Current Outpatient Medications on File Prior to [...] by mouth every 12 (twelve) hours HYDROcodone-acetaminophen ([place]) 5-325 MG tablet Take 1 tablet by [...] mg by mouth in the morning. [DISCONTINUED] azithromycin (Zithromax) 250 MG tablet Take 2 tablets (500 mg) by mouth Daily for 1 day, THEN 1 tablet (250 mg) Daily for 4 days. 6 tablet 0 [DISCONTINUED] promethazine-codeine (Phenergan W/Codeine) 6.25-10 MG/5ML syrup Take 5 mL by mouth every 6 (six) hours if needed for cough for up to 10 days 240 mL 0 Current Facility-Administered Medications on File Prior to Visit Medication Dose Route Frequency Provider Last Rate Last Admin triamcinolone acetonide (Kenalog-40) injection 40 mg 40 mg Intramuscular Once Renny Hansen MD I have reviewed and reconciled the history [...] Left RF Visit Vitals BP 128/72 Pulse 60 Ht 4' 9 Wt 222 lb SpO2 95% BMI 48.04 kg/m Smoking Status Former BSA 2.02 m Review of Systems Objective Physical Exam Constitutional: [...] Diagnoses and all orders for this visit: Asymptomatic microscopic hematuria - Ambulatory referral to Urology; Future Acute cystitis with hematuria - ciprofloxacin (Cipro) 250 MG tablet; Take 1 tablet (250 mg) by mouth in the morning and 1 tablet (250 mg) before bedtime. Do all this for 5 days. Other orders - Follow Up In Family Medicine; Future Follow up with Dr. Renny Hansen in 3 months (on 10/16/2025). documented in this encounterCarondelet [id number] NoteUT Cardiology - [facility] Subjective Breann Starks is a 79 y.o. year old female patient being seen for Follow-up on Coronary Artery Disease, PSVT, Hypertension, Atrial Fibrillation, Sinus node dysfunction, Pulmonary Hypertension, Premature beats, Venous insufficiency, Pacemaker, Shortness of Breath (SOB/LEA with exertion, ), and Palpitations Patient Active Problem List Diagnosis Disorder of bursae of shoulder region Chronic obstructive lung disease (CMS/HCC) Atherosclerosis of [place] coronary artery of [place] heart without angina pectoris Diaphragmatic hernia Edema Essential hypertension Malaise and fatigue Obesity Paroxysmal supraventricular tachycardia Premature beats Sinus node dysfunction (CMS/HCC) Paroxysmal A-fib (CMS/HCC) Vitamin D deficiency Venous insufficiency Steatosis [...] sleep apnea syndrome Abnormal CT scan, neck 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 She reports that she was diagnosed with anemia in March 2025 with hemoglobin down to 7.9 and she had extensive workup for possible cancer/multiple myeloma, she received iron infusion and she feels better. It was thought that it is probably due to chronic infection in her left shoulder for which she will be on antibiotics for life. Surgery was not recommended. She had recent COPD exacerbation and she just received treatment for it and she is getting better. She reports occasional but very brief palpitations without any other symptoms. She denies any chest discomfort at rest or with exertion. She denies orthopnea or paroxysmal nocturnal dyspnea or dizziness or legs edema. She reports dilatation of her chest wall veins which she started seeing after she had the pacemaker. 12/24/2024 The patient is here for follow-up [...] artery disease Hypertension Past Surgical History: Procedure Latera (more content not included)...[facility]10-24-2025 History of Present illness Narrative* Renny Hansen MD - 07/05/2025 11:45 AM [...] by mouth every 12 (twelve) hours HYDROcodone-acetaminophen ([place]) 5-325 MG tablet Take 1 tablet by [...] 4' 9 Wt 225 lb BMI 48.69 kg/m Smoking Status Former BSA 2.03 m Review of Systems Objective Physical Exam Constitutional: [...] No follow-ups on file. documented in this encounterCarondelet [id number] NoteSubjective Patient ID: Breann Starks is a 79 [...] suppression Repeat labs today [facility]* Diagnosis Onset Date Resolution Status Admit Date Axillary lymphadenopathy acuteAugust 2024 1:47pmIron deficiency anemiaacuteAugust 2024 1:47pm [facility] Work Phone: [phone]) 234-934908-13-2025 History of Present illness Narrative* Shannon Russo NP - 04/24/2025 9:30 AM EDT Images [...] by mouth every 12 (twelve) hours HYDROcodone-acetaminophen ([place]) 5-325 MG tablet Take 1 tablet by [...] No follow-ups on file. documented in this encounterCarondelet [id number] History of Present illness Narrative* DANIELLE Florence - 04/18/2025 11:00 AM EDT Subjective Patient ID: Breann Starks is a 79 y.o. female who presents for COPD. Breann is present today for follow up COPD. She has a nebulizer at home but is not working properly and it is over 20 years old. She would like it sent to [facility] in [place] ([facility]). She uses it as needed. She does [...] by mouth every 12 (twelve) hours HYDROcodone-acetaminophen ([place]) 5-325 MG tablet Take 1 tablet by [...] broken. Will fax order for nebulizer to [facility] [employer], . It is medically necessary for patient [...] the nebulizer, patient is at risk for SPRINKLER REPAIR TECHNICIAN Exacerbation that may require hospitalization, as well as hypoxia which can lead to falls. Falls can cause potentially fatal injuries. Refill provided on the nebulizer solution also at today's visit. Follow up for Appointment As Scheduled. documented in this encounterCarondelet [id number] NoteSubjective Patient ID: Breann Starks is a 79 [...] suppression Repeat labs today [facility] History of Present illness Narrative* Renny Hansen MD - 02/18/2025 11:30 AM [...] by mouth every 12 (twelve) hours HYDROcodone-acetaminophen ([place]) 5-325 MG tablet Take 1 tablet by [...] emphysema (CMS/HCC) COPD (chronic obstructive pulmonary disease) ([facility]/HCC) COPD exacerbation ([facility]/HCC) 10/17/2023 Coronary artery disease ([facility]/HCC) Diastolic dysfunction Essential hypertension ([facility]/HCC) History of tobacco abuse Nonalcoholic steatohepatitis ([place]) Obstructive sleep apnea Osteoarthritis Paroxysmal atrial fibrillation ([facility]/HCC) Peptic ulcer disease Secondary pulmonary arterial hypertension ([facility]/HCC) Sick sinus syndrome ([facility]/HCC) Spinal stenosis, lumbar region with neurogenic claudication SVT (supraventricular tachycardia) ([facility]/HCC) URTI (acute upper respiratory infection) [...] 3 months (around 05/21/2025). documented in this encounterCarondelet [id number] NoteSubjective Patient ID: Breann Starks is a 79 [...] sanguis Perfect is the enemy of good moni 1. Pain in joint of left shoulder [...] Future - C-reactive protein; (more content not included)...[facility]04-22-2025 NoteOrthopaedic Surgery Subjective Follow-up and Pain of the [...] Diagnosis Date Abnormal ECG Arrhythmia Atrial fibrillation ([facility]) Coronary artery disease Hypertension Objective General: Body [...] may be an additional personal documentation from me.[facility]04-14-2025 NoteUT Cardiology - [facility] Subjective Breann Starks is a 79 y.o. year old female patient being seen for Coronary Artery Disease, Hypertension, Congestive Heart Failure, Hyperlipidemia, and 3 month follow up Patient Active Problem List Diagnosis Disorder of bursae of shoulder region Chronic obstructive lung disease (CMS/HCC) Atherosclerosis of [place] coronary artery of [place] heart without angina pectoris Diaphragmatic hernia Edema [...] 3 furosemide (Lasix) 4 (more content not included)...[facility]04-07-2025 History of Present illness Narrative* Renny Hansen MD - 12/17/2024 11:00 AM EDT Images from the original [...] by mouth every 12 (twelve) hours HYDROcodone-acetaminophen ([place]) 5-325 MG tablet Take 1 tablet by [...] 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 On 1 month ATB course. Abnormal mammogram - Results discussed. She has left axillary LAD from above. Enlarged lymph nodes in armpit - This office visit was spent in consultation regarding the patient's current medical problems, differential diagnoses, testing/imaging results, and treatment options. Greater than 25 minutes was spent in [id number] consultation and coordination of care. No follow-ups on file. documented in this encounterCarondelet [id number] NoteOrthopedic Surgery Subjective Chief complaint: Chief Complaint Patient [...] Diagnosis Date Abnormal ECG Arrhythmia Atrial fibrillation ([facility]) Coronary artery disease Hypertension Objective General: Body [...] to her about suppression versus doing something definitive.[facility]03-04-2025 NoteOrthopedic Surgery Subjective Pain of the Left Shoulder [...] Diagnosis Date Abnormal ECG Arrhythmia Atrial fibrillation ([facility]) Coronary artery disease Hypertension Objective General: Body mass index is 44.43 kg/m???. No acute distress, comfortable Left UE/Hand: Inspection- swelling and erythema overlying the left shoulder and upper arm Tender to palpation surrounding shoulder, otherwise non-tender ROM: Limited shoulder range of motion patient with flexion to 40 degrees, abduction to 20 full painless motion to all digits and the wrist Strength: preventive maintenance engineer 5/5, thumb 5/5, interossei 5/5. wrist extension/flexion [...] -Return to clinic after labs completed Marielos Venegas MD Orthopaedic Surgery, PGY-2 11/13/24 1:41 PM [...] may be an additional personal documentation from me.[facility]03-04-2025 NotePatient ID: Breann Starks is a 78 y.o. [...] to verify the correct patient, procedure, equipment, clinical support nurse and site/side marked as required.[facility] 11-10-2024 Telephone encounter Note* Telephone Encounter - DANIELLE Sanon - 11/10/2024 9:39 AM EST I think it is the op note left shoulder on 01/07/2022 ( Dr. Amin- [facility]) thanks [facility] Work Phone: 1(230) 452-560903-01-2025 Miscellaneous Notes* Telephone Encounter - DANIELLE Sanon - 11/10/2024 9:39 AM EST I think it is the op note left shoulder on 01/07/2022 ( Dr. Amin- [facility]) thanks * Telephone Encounter - Silvina Batres - 11/09/2024 11:43 AM EST Patient called in about seeing and the referral to . Patient needs us to send the op report for LT shoulder to because 's office cannot.. 's fax number is [phone]. Is this ok? documented in this encounterCarondelet [id number] Telephone encounter Note* Telephone Encounter - Silvina Batres - 11/09/2024 11:43 AM EST Patient called in about seeing and the referral to . Patient needs us to send the op report for LT shoulder to because 's office cannot.. 's fax number is [phone]. Is this ok? [facility] [id number] History of Present illness Narrative* Jr. Sakina Cardenas, DO - 11/07/2024 11:15 AM EST Images from the original note were not included. HISTORY OF PRESENT ILLNESS: EST PT Breann Starks is an 78 y.o. @ female. (EST PT) - RECHECK (L) SHOULDER ; S/P LABS (CBC W/ DIFF, CRP, SED RATE) S/P (L) REVERSE TSR 12/29/21 - DR AMIN XRAYS, (L) SHOULDER & C-SPINE 04/16/24 [place] [facility] [place]NABLE [place] OBTAIN IMAGES D/T PACEMAKER PLACEMENT BONE SCAN 05/02/24 @ [facility] [place]/24 [place] [facility] [place] W/DIFF, CRP, SED RATE) LABS 05/09/24 @ [facility] (CBC / SED RATE / CRP) [...] USING HER(L) ARM TO USE A BACK DISH MACHINE OPERATOR ON HER BACK ALLERGIES: Allergies Allergen Reactions [...] (TAMBOCOR) 100 mg, Every 12 hours HYDROcodone-acetaminophen ([place]) 5-325 MG tablet 1 tablet, 3 times [...] Elbow: none Palpation additional comments: Neg Spurlings Quill Fixer strength symmetric. Wrist flex/ ext. Symmetric 5/5 [...] We have recommended a second opinion at [facility] and set her up with a [...] for requiring urgent evaluation. documented in this encounterCarondelet [id number] History of Present illness Narrative* Jr. Sakina Cardenas DO - 10/24/2024 2:15 PM EST Images from the original note were not included. HISTORY OF PRESENT ILLNESS: EST PT Breann Starks is an 78 y.o. @ female. (EST PT) (DR. HANSEN REFERRAL) - RECHECK (L) SHOULDER S/P (L) REVERSE TSR 12/29/21 - DR AMIN XRAYS, (L) SHOULDER & C-SPINE 04/16/24 IN EPIC [place]EMPT[place] [facility] UNABLE TO OBTAIN IMAGES D/T PACEMAKER PLACEMENT BONE SCAN 05/02/24 @ [facility] [place] 05/09/24 @ [facility] (CBC / SED RATE / CRP) NO MDP / PREDNISONE NO RECENT PT PAIN MGMT @[facility] (LBP) (NECK PAIN 08/2024) CONTINUES TO [...] USING HER(L) ARM TO USE A BACK DISH MACHINE OPERATOR ON HER BACK ALLERGIES: Allergies Allergen Reactions [...] (TAMBOCOR) 100 mg, Every 12 hours HYDROcodone-acetaminophen ([place]) 5-325 MG tablet 1 tablet, 3 times [...] Elbow: none Palpation additional comments: Neg Spurlings Quill Fixer strength symmetric. Wrist flex/ ext. Symmetric 5/5 [...] due to internal joint prosthesis, initial encounter ([facility]T84.50XA CBC and differential C-reactive protein Sedimentation rate, [...] for requiring urgent evaluation. documented in this encounterCarondelet [id number] History of Present illness Narrative* Renny Hansen MD - 10/17/2024 11:30 AM EST Images from the original note were not included. Subjective : Chief Complaint: Breann T Woyan is an 78 y.o. female here for [...] by mouth every 12 (twelve) hours HYDROcodone-acetaminophen ([place]) 5-325 MG tablet Take 1 tablet by [...] you have a medical power of civil litigation attorney?: No Objective : BP 138/76 Pulse [...] living will and durable power of civil litigation attorney for healthcare. We discussed telling kitchen [...] on October 17, 2024 documented in this encounterCarondelet [id number] Radiology Diagnostic study [facility] [place] [address] [place] [address] Ultrasound Report Signed Patient: Breann Starks MR#: [id number] : 1945 Acct:[id number] Age/Sex: 78 / F ADM Date: 5 Loc: [facility] Room: Type: [facility] Attending Dr: Dmitriy Duque DO Ordering Provider: Dmitriy Duque DO Date of Service: 10/16/24 US/US axilla: R92.8 ([id number]) MM/MM diagnostic mammo BI w/CAD: ENLARGED LT [...] CANNOT BE EXCLUDED. A TRIAL OF ANTIBIOTICS ISSUGGESTED. REPEAT ULTRASOUND OF THE LEFT AXILLA AFTER THERAPY IS SUGGESTED TO CONFIRM RESOLUTION. RESULT CODE: 3 Probably Benign Finding Short Term Follow-Up DENSITY CODE: 2 (approximately 25-50% glandular) FOLLOW UP: 3M The false-negative rate of mammography is approximately 10-percent. Management of a palpable abnormality must be based on clinical grounds. Impression dictated by: Francisco J Benton Jr., D.OMeena10/16/2024 2:20 PM Dictation Location: [facility] Tech: Ghazal Cannones; Kadi Barber Transcribed By: STAR 10/16/24 1420 Dictated By: Francisco J Benton Jr, DO 10/16/24 1343 Signed By: 10/16/24 1420 [facility]01-23-2025 History of Present illness Narrative * Dmitriy Duque, - 10/04/2024 2:45 PM EST Images from the original note were not included. Breann Starks 1945 Breann Starks is a 78 y.o. female presents with chief complaint of Consult (Lt axillary lymphadenopathy) HPI: HPI patient was vigorously scratching her back with a back statistician mathematical on February 15 and the next day [...] very well. She had a CT scan inOctober where a 1.5 cm lymph node was noted. She had a repeat CT scan that still showed about the same enlargement 1.3 cm of the lymph node. She can not feel the lymph nodes. She has not noticed any breast issues breast pain. She has not got a mammogram was ordered however she can not do it becauseshe has so much pain in her shoulder. [...] breast masses or lumps or bumps. She hasnot having any skin changes of the breast. [...] furosemide (LASIX) 40 mg, Oral, Daily HYDROcodone-acetaminophen ([place]) 5-325 MG tablet 1 tablet, 3 times [...] Date Anemia Atrial fibrillation ([facility]/HCC) Centrilobular emphysema (CMS/HCC) COPD (chronic obstructive pulmonary disease) ([facility]) COPD exacerbation ([facility]) 10/17/2023 Coronary artery disease ([facility]/HCC) Diastolic dysfunction Essential hypertension ([facility]/HCC) History of tobacco abuse Nonalcoholic [...] Former Physical Exam Exam conducted with a olive grader present. Constitutional: Appearance: Normal appearance. HENT: Head: [...] injury. Mammography has not been done and patientsays that she can not get 1 done. I discussed with the patient and her options. We will getan ultrasound evaluation of left axilla and ultrasound-guided [...] current doctors on that documented in this encounterCarondelet [id number] NoteUT Cardiology - [facility] Subjective Breann Starks is [...] Chronic obstructive lung disease (CMS/HCC) Atherosclerosis of [place] coronary artery of [place] heart without angina pectoris Diaphragmatic hernia Edema [...] Positive fecal occult blood test Sigmoid diverticulosis [facility] 09[facility] Patient states that she has [...] and at bedtime. (Patient (more content not included)...[facility]01-08-2025 History of Present illness Narrative* Luisana Leal, 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 - 09/19/2024 3:00 PM EST Images from the original note were [...] (5,000 Units) by mouth Daily90 tablet 1 ferrous sulfate 325 (65 Fe) MG tablet Take 325 mg by mouth every other day (Patient not taking: Reported on 09/18/2024) flecainide (Tambocor) 100 MG tablet Take 100 mg by mouth every 12 (twelve) hours furosemide (Lasix) 40 MG tablet TAKE 1 TABLET BY MOUTH EVERY DAY (Patient not taking: Reported on 09/18/2024) 90 tablet 0 HYDROcodone-acetaminophen ([place]) 5-325 MG tablet Take 1 tablet by [...] most common side effects were discussed. Instructed toincrease her fluids, rest, continue the medication as ordered and follow up as needed for continuedsymptoms. - nitrofurantoin, macrocrystal-monohydrate, (Macrobid) 100 MG capsule; [...] follow-ups on file. = documented in this encounterCarondelet [id number] Instructions* Patient Instructions* Luisana Leal NP - 09/19/2024 3:00 PM EST Macrobid ordered. Urine sent for culture. documented in this [facility]01-07-2025 History of Present illness Narrative* Salome Cid, - 09/18/2024 10:15 AM EST Images from the original note were not included. Chief Complaint: neck pain and paresthesia Subjective Breann Starks, 78 y.o., female Patient presents today for a neurologic consult for neck pain, paresthesia. She is accompanied by her life partner. Patient states she was sent from pain management. She has had multiple nerve blockswhich were not successful. She reports pain in her left shoulder, neck and arm for about 6 months. This pain is constant. She reports most time her muscles feel contracted. She has decreased ROM and is unable to lift her left arm. She states this is worse at night. She does not notice anything thatmakes this better. Review of Systems Constitutional: Negative [...] claudication SVT (supraventricular tachycardia) ([facility]) URTI (acute upper respiratory infection) Vertigo Vitamin [...] , wrist extensors , wrist flexor , preventive maintenance engineer strength 5/5. Left upper extremity strength is diminished secondary to pain. Patient seems to have 4-/ 5 strengthagain limited mostly by pain RLE Strength illopsoas, [...] reflex 2+ . Neal's sign negative. Coordination: Lovcex-zk-xtut testing and rapid alternating movements are normal [...] time. Patient's pain is persistent. Patient has hadpain management intervention in her neck without relief. [...] states she was asked previously to get amammogram but stated that due to the pain [...] and she fully understands and will proceed withthis treatment plan. Additional information was taken from the patient's who accompanied her to the visit today. Pt has been fully educated on their diagnosis, lab results, treatment options, follow up plan, and return instructions documented in this encounterCarondelet [id number] Evaluation note* Diagnosis Onset Date Resolution Status Admit Date Iron deficiency anemia acuteDecember 2023 12:55pm [facility] Work Phone: 1(396) 676-858812-13-2024 Evaluation note* Diagnosis Onset Date Resolution Status Admit Date Iron deficiency anemia acuteDecember 2023 12:55pmAxillary lymphadenopathyacuteJanuary 2024 11:08amIron deficiency anemiaacuteJanuary 2024 11:08am [facility] Work Phone: 1(457) 885-231712-05-2024 History of Present illness Narrative* Renny Hansen [...] MOUTH EVERY DAY 90 tablet 0 HYDROcodone-acetaminophen ([place]) 5-325 MG tablet Take 1 tablet by [...] claudication SVT (supraventricular tachycardia) ([facility]/HCC) URTI (acute upper respiratory infection) [...] for As Previously Scheduled. documented in this encounterCarondelet [id number] History of Present illness Narrative* Renny Hansen [...] MOUTH EVERY DAY 90 tablet 0 HYDROcodone-acetaminophen ([place]) 5-325 MG tablet Take 1 tablet by [...] emphysema (CMS/HCC) COPD (chronic obstructive pulmonary disease) ([facility]/HCC) COPD exacerbation (CMS/HCC) 10/17/2023 Coronary artery disease (CMS/HCC) Diastolic dysfunction Essential hypertension (CMS/HCC) History of tobacco abuse Nonalcoholic steatohepatitis (LOJA) Obstructive sleep apnea Osteoarthritis Paroxysmal atrial fibrillation (CMS/HCC) Peptic ulcer disease Secondary pulmonary arterial hypertension (CMS/HCC) Sick sinus syndrome (CMS/HCC) Spinal stenosis, lumbar region with neurogenic claudication SVT (supraventricular tachycardia) ([facility]) URTI (acute upper respiratory infection) Vertigo Vitamin [...] Greater than 25 minutes was spent in hjkp-wy-jmnk consultation and coordination of care. Persistent atrial fibrillation (HCC) (CMS/HCC) Nausea - FL upper GI double contrast w KUB; Future Follow up in about 2 weeks (around 08/16/2024) for Test/Lab Review. documented in this encounterCarondelet [id number] Telephone encounter Note* Telephone Encounter - DANIELLE Florence - 07/25/2024 1:07 PM EST My chart message. [facility] [id number] Miscellaneous Notes* Telephone Encounter - DANIELLE Florence - 07/25/2024 1:07 PM EST My chart message. documented in this encounterCarondelet [id number] History of Present illness Narrative* DANIELLE Florence [...] arm. Pt does see pain magment in [place]. Sees their office next week on the [...] MOUTH EVERY DAY 90 tablet 0 HYDROcodone-acetaminophen ([place]) 5-325 MG tablet Take 1 tablet by [...] Neck pain on left side Can continue [place] as needed for pain. Radicular pain in [...] (CMS/HCC) The patient is seeing a medical assistant for this condition, treatment is deferred to that specialist. Correspondence from that specialist and any available testing were reviewed during today's visit. She will be having Cardiac Catheterization for further evaluation of the pulmonary hypertension. Other thrombophilia Will recheck with updated labs. Follow up in about 4 weeks (around 08/21/2024) for Next scheduled follow-up with Dr. Hansen. documented in this encounterCarondelet [id number] Telephone encounter Note* Telephone Encounter - DANIELLE Florence - 07/24/2024 10:04 AM EST Will discuss with pt at today's OV [facility] [id number] Miscellaneous Notes* Telephone Encounter - DANIELLE Florence - 07/24/2024 10:04 AM EST Will discuss with pt at today's OV * Telephone Encounter - Renny Hansen MD - 07/05/2024 2:55 PM EDT Call after mammogram with plan. See last OV. documented in this encounterCarondelet [id number] NoteUT Cardiology - [facility] Subjective Breann Starks is a 78 y.o. year old female patient being seen for Atrial Fibrillation, PACEMAKER, Coronary Artery Disease, Hypertension, Sinus node dysfunction (HAS B[place]ON PACER), Obesity, and Edema Patient Active Problem List Diagnosis Disorder of bursae of shoulder region Chronic obstructive lung disease (CMS/HCC) Atherosclerosis of [place] coronary artery of [place] heart without angina pectoris Diaphragmatic hernia Edema [...] rhythm, normal EKG Ech (more content not included)...[facility]10-24-2024 Telephone encounter Note* Telephone Encounter - Renny Hansen MD - 07/05/2024 2:55 PM EDT Call after mammogram with plan. See last OV. [facility] [id number] History of Present illness Narrative* Renny Hansen MD - 07/05/2024 9:00 AM EDT Images from the original note were not included. HPI Establish Care Additional comments: Previous pcp Dr Cira Saldivar cardiology-dr juan Holly-- orthopedic Last edited by Carlene Yan LPN on 07/05/2024 8:59 AM. Subjective Patient ID: Breann Starks is a 78 y.o. female who presents for Establish Care (Previous pcp Dr Denis/Yraiel cardiology-dr martinez/Dr. Holly-- orthopedic) and Hypertension. Hypertension [...] MOUTH EVERY DAY 90 tablet 0 HYDROcodone-acetaminophen ([place]) 5-325 MG tablet Take 1 tablet by [...] REVERSE TOTAL SHOULDER ARTHROPLASTY Left 12/29/2021 DR MAIN ROTATOR CUFF REPAIR Right SHOULDER ARTHROSCOPY Bilateral [...] Greater than 45 minutes was spent in giha-xe-spnn consultation and coordination of care. Follow up in about 4 months (around 11/05/2024) for Call after mammogram. documented in this encounterCarondelet [id number] History of Present illness Narrative* Jazmín Calvillo NP - 06/02/2024 10:19 AM EDTAssociated Problem(s): Acute on chronic diastolic (congestive) heart failure (CMS/HCC) Discussed with Dr. Hennessy's office pt symptoms and clinical condition today in office. Sent pt to ER for further workup and tx of suspected CHF exacerbation. * Jazmín Calvillo NP - 05/31/2024 1:30 PM EDT Images from the original note were not included. Subjective Patient ID: Breann Starks is a 78 y.o. female who presents for Follow-up and Cough. HPI CHF: Last appointment [address] Hennessy Weight 232 in March here Is now 237 Has productive wet cough, significant edema noted to L side. FERNANDO, LLE; Did not take Lasix today- was [...] of suspected CHF exacerbation. documented in this encounterCarondelet [id number] NoteHNO ID: [id number] Author: BOO BUCHANAN PA-C Service: ? Author Type: Physician Hedis Analyst Type: Progress Notes Filed: 05/22/2024 13:53 [...] She was recommended for second opinion at [facility]. She also had a CRP and ESR [...] date: COPD (chronic obstructive pulmonary disease) ([facility]) SOCIAL HISTORY: Tobacco Use: Never EXAMINATION: GENERAL: [...] due to left shoulder joint prosthesis ([facility]) T84.84XA CT SHOULDER WO IVCON LEFT Z96.612 [...] the system. Boo Buchanan (more content not included)...[facility] 05-22-2024 History of Present illness Narrative* [...] She was recommended for second opinion at [facility]. She also had a CRP and ESR [...] date: COPD (chronic obstructive pulmonary disease) ([facility]) SOCIAL HISTORY: Tobacco Use: Never EXAMINATION: GENERAL: [...] due to left shoulder joint prosthesis ([facility]) T84.84XA CT SHOULDER WO IVCON LEFT Z96.612 [...] hardware. Bone scan performed at [facility]' to be uploaded to the system. Boo Buchanan PA-C documented in [facility] encounterPrem[facility]09-[facility]-2024 NoteHNO ID: [id number] Author: JYOTHI CRUZ RT(R) Service: ? Author [...] PATIENT PRESENTS WITH AN IMPLANTABLE OR ATTACHED PMP CERTIFIED PROJECT MANAGER: No RADIOLOGY DEPARTMENT: General X-ray: Exam(s) Completed: Upper Extremity X-Ray(s): Shoulder, AP / TRUE AP / AXILLARY / SUPRA OUTLET left PERIPHERAL IV DATA: Not applicable SIGNED BY: RT Chaparrita(R) May 22, 2024 1:[address] [facility]09-10-2024 History of Present illness Narrative* Jyothi [...] PATIENT PRESENTS WITH AN IMPLANTABLE OR ATTACHED PMP CERTIFIED PROJECT MANAGER: No RADIOLOGY DEPARTMENT: General X-ray: Exam(s) Completed: Upper Extremity X- Ray(s): Shoulder, AP / TRUE AP / AXILLARY / SUPRA OUTLET left PERIPHERAL IV DATA: Not applicable SIGNED BY: RT Chaparrita(R) May 22, 2024 1:25 PM documented in this encounterPrem[facility]08-28-2024 History of Present illness Narrative* Jr. Sakina Cardenas DO - 05/09/2024 10:00 AM EDT Images from the original note were not included. HISTORY OF PRESENT ILLNESS: EST PT Breann Starks is an 78 y.o. @ female. (EST PT ; LAST APPT W/ QUINN) RECHECK (L) SHOULDER PAIN ; HERE FOR BONE SCAN RESULTS 05/02/24 @ [facility] (VERBAL GIVEN PER QUINN - REFERRAL SENT TO DR AMIN) & LABS 05/09/24 @ [facility] (CBC / SED RATE / CRP) S/P (L) REVERSE TSR 12/29/21 - DR AMIN XRAYS, (L) SHOULDER & C-SPINE 04/16/24 IN EPIC ATTEMPTED MRI @ [facility] - UNABLE TO OBTAIN IMAGES D/T PACEMAKER PLACEMENT BONE SCAN 05/02/24 @ [facility] [place]S 05/09/24 @ [facility] (CBC / SED RATE / CRP) NO MDP / PREDNISONE NO RECENT PHYSICAL THERAPY PAIN MGMT @ [facility] (LBP) CONTINUES TO HAVE CONSTANT DISCOMFORT [...] USING HER(L) ARM TO USE A BACK DISH MACHINE OPERATOR ON HER BACK ALLERGIES: Allergies Allergen Reactions Nsaids Other Reaction(s): HEART ISSUES Digoxin Rash Wound Dressing Adhesive Rash HOME MEDICATIONS: Current Outpatient Medications Medication Instructions apixaban (ELIQUIS) 5 mg, Oral, 2 times daily ferrous sulfate 325 mg, Oral, Daily with breakfast, Do not crush, chew, or split. flecainide (TAMBOCOR) 100 mg, Oral, Every 12 hours furosemide (LASIX) 40 mg, Oral, Daily HYDROcodone-acetaminophen ([place]) 5-325 MG tablet 1 tablet, Oral, 3 [...] Elbow: none Palpation additional comments: Neg Spurlings Quill Fixer strength symmetric. Wrist flex/ ext. Symmetric 5/5 [...] basis. Sakina Cardenas D.O. documented in this encounterCarondelet [id number] Evaluation note* Encounter Date Diagnosis Assessment Notes Treatment Notes Treatment Clinical Notes Sep, LOJA (nonalcoholic steatohepatit is) (ICD-10 - K75.81) OBTAIN FIBROSURE RESULTS FROM [facility] ON RESULTS PT ENCOURAGED WEIGHT LOSS RTO ONE YEAR WITH LABS ANNUALLY Sep,Unspecified cirrhosis of liver (ICD-10 - K74.60) [facility] Other 12-15-2021 Evaluation note* Encounter Date Diagnosis Assessment Notes Treatment Notes Treatment Clinical Notes Aug, Nonalcoholic steatohepatitis (NA SH) (ICD-10 - K75.81) RTO 6-8 WEEKS Aug,Unspecified cirrhosis of liver (ICD-10 - K74.60) Aug,Morbid obesity (ICD-10 - E66.01) [facility] Other Evaluation + Plan note No data available for this section [facility] [place] Evaluation noteNo assessment information available [facility] Work Phone: Evaluation note* Diagnosis 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)- Primary Left shoulder pain, unspecified chronicity Left shoulder pain, unspecified chronicity [facility]* Diagnosis Left shoulder pain, unspecified chronicity documented in this [facility]* Diagnosis Acute on chronic diastolic (congestive) heart failure (CMS/HCC) documented in this encounter [facility]* Diagnosis Essential hypertension (CMS/HCC)- Primary [...] Unspecified essential hypertension documented in this encounter [facility]* Diagnosis Essential hypertension (CMS/HCC)- Primary [...] Other thrombophilia (CMS/HCC) documented in this encounter [facility]* Diagnosis Essential hypertension (CMS/HCC)- Primary [...] blood loss (chronic) documented in this encounter [facility]* Diagnosis Essential hypertension (CMS/HCC)- Primary [...] Unspecified essential hypertension Persistent atrial fibrillation (HCC) ([facility]/HCC) Atrial fibrillation Chronic bilateral low back pain with bilateral sciatica Medicare annual wellness visit, subsequent Chronic obstructive pulmonary disease, unspecified COPD type (CMS/HCC)- Primary Persistent atrial fibrillation (HCC) ([facility]/HCC) Atrial fibrillation Sick sinus syndrome (I49.5) Sinoatrial [...] (CMS/HCC) Atrial fibrillation documented in this encounter [facility]* Diagnosis Essential hypertension (CMS/HCC)- Primary [...] tissues of limb documented in this encounter [facility] HealthcareEvaluation note* Diagnosis Essential hypertension (CMS/HCC)- [...] unspecified single disease documented in this encounter [facility]* Diagnosis Essential hypertension (CMS/HCC)- Primary [...] of lymph nodes documented in this encounter [facility] HealthcareEvaluation note* Diagnosis Essential hypertension (CMS/HCC)- [...] left upper extremity documented in this encounter [facility]* Diagnosis Essential hypertension (CMS/HCC)- Primary [...] initial encounter (CMS/HCC) documented in this encounter [facility] [...] left shoulder joint documented in this encounter [facility] HealthcareEvaluation note* Diagnosis Essential hypertension (CMS/HCC)- [...] of lymph nodes documented in this encounter [facility]* Diagnosis Essential hypertension (CMS/HCC)- Primary [...] legs syndrome (RLS) documented in this encounter [facility]* Diagnosis Essential hypertension- Primary Unspecified [...] (BMI) of 45.0 to 49.9 in adult ([facility]-HCC) Acute on chronic diastolic (congestive) heart failure [...] type (HCC)- Primary documented in this encounter [facility] HealthcareEvaluation note* Diagnosis Essential hypertension- Primary Unspecified [...] (BMI) of 45.0 to 49.9 in adult ([facility]CC) Acute on chronic diastolic (congestive) heart failure [...] Hematuria, unspecified type documented in this encounter [facility]* Diagnosis Onset Date Resolution Status Admit Date Axillary lymphadenopathy acuteAugust 2024 1:47pmIron deficiency anemiaacuteAugust 2024 1:47pm [facility] Work Phone: Evaluation note* Diagnosis Essential hypertension- Primary Unspecified essential [...] (BMI) of 45.0 to 49.9 in adult ([facility]) Acute on chronic diastolic (congestive) heart failure [...] chronic diastolic (congestive) heart failure (HCC)- Primary Bronchitis Bronchitis, not specified as acute or chronic documented in this encounter [facility]* [...] chronic diastolic (congestive) heart failure (HCC)- Primary Asymptomatic microscopic hematuria- Primary Acute cystitis with hematuria documented in this encounter [facility] HealthcareHistory general Narrative - Reported* Type Description Date Medical History COPD Medical Historya.fibMedical HistoryHTNMedical HistoryGERDSurgical History(R) TKA Surgical History3 right shoulder surgeriesSurgical History(L) TKASurgical History1 left shoulderSurgical History(L) SHOULDER SCOPESurgical Historyleft TKA Surgical History(R) SHOULDER SCOPE [id number] Historyright TKASurgical History ABALATIONSurgical Historybilateral foot surgeriesSurgical History(L) RF TRIGGER RELEASESurgical History3 heart ablationsSurgical Historyhysterectomy-total Surgical HistorypacemakerHospitalization Historysee above [facility] Other Hospital Discharge instructions No data available for this section [facility] [place] [facility] Discharge instructionsAmbulatory Orders* Referral to General Surgery Location: None Selected [facility] Work Phone: Hospital Discharge instructions Additional Instructions DISCHARGE INSTRUCTIONS FOR UPPER ENDOSCOPY WHAT TO EXPECT: - You may feel full, gassy or cramping after your procedure. In some cases, this may be from a few hours to a day. Walking may help relieve the discomfort. - Your throat may feel sore today from the scope that the doctor passed through your throat to visualize your stomach. Take a throat lozenge or suck on ice to ease the discomfort. - You may notice some streaks of blood in your sputum if the doctor has taken a biopsy. - You should begin to recover from anesthesia within 1 hour of the procedure, however may feel groggy for the next 24 hours. DO's AND DON'Ts: - Call your doctor right away if you have a hard abdomen, severe pain, vomiting or if you cough up large amounts of blood. - Call your doctor if you develop any rashes, hives or difficulty breathing. - If you take 81 mg aspirin for your heart it is safe to resume this medication. - If you take other blood thinner medications your doctor will instruct you when these can safely be resumed. - Do NOT drive for 24 hours. - Do NOT operate machinery such as power tools, lawn mowers, snow blowers, sewing machines, etc. for 24 hours. - Avoid alcoholic beverages and drugs for allergies, nerves, or sleep. - Do NOT stay alone. Do NOT leave your child unattended. - Do NOT make important personal or business decisions or sign any legal documents. - Eat solid foods and drink liquids in smaller amounts than usual until normal appetite returns. If you should experience an upset stomach, liquids high in sugar content (soda, Adam-Aid, non-acid juices) are recommended. - Do NOT smoke. - Do take it easy today. You need not stay in bed, but avoid strenuous activities such as jogging or working out. DISCHARGE INSTRUCTIONS FOR COLONOSCOPY WHAT TO EXPECT: - You may feel full, gassy or cramping after your procedure. In some cases, this may be from a few hours to a day. Walking may help relieve the discomfort. - If you have polyp(s) removed you may note some minor bloody discharge after your first bowel movements. - You should begin to recover from anesthesia within 1 hour of the procedure, however may feel groggy for the next 24 hours. DO's AND DON'Ts: - Call your doctor right away if you have a hard abdomen, sever pain, are passing lots of bright red blood or clots. - Call your doctor if you develop any rashes, hives or difficulty breathing. - Let your doctor know if you have not had a bowel movement by 3 days after your procedure. - If you take 81 mg aspirin for your heart it is safe to resume this medication. - If you take other blood thinner medications your doctor will instruct you when these can safely be resumed. - Do NOT drive for 24 hours. - Do NOT operate machinery such as power tools, lawn mowers, snow blowers, sewing machines, etc. for 24 hours. - Avoid alcoholic beverages and drugs for allergies, nerves, or sleep. - Do NOT stay alone. Do NOT leave your child unattended. - Do NOT make important personal or business decisions or sign any legal documents. - Eat solid foods and drink liquids in smaller amounts than usual until normal appetite returns. If you should experience an upset stomach, liquids high in sugar content (soda, Adam-Aid, non-acid juices) are recommended. - You can resume normal activities tomorrow. FOLLOW UP & RECOMMENDATIONS: -[ ] - Notify the doctor if you have any problems. -[ ] - Follow up with PCP. - Office number [phone].[facility] Work Phone: Progress note No data available for this section [facility] [place] Reason for referral (narrative)* Diagnostic Procedure Only (Routine) - ClosedSpecialtyDiagnoses / ProceduresReferred By Contact Referred To ContactXR IMAGING Diagnoses Left shoulder pain, unspecified chronicity Procedures XR SHOULDER ORTHO 4V AP/TRUE AP/LAT/OUTLET LEFT RADEX SHOULDER COMPLETE MINIMUM 2 VIEWS Boo Buchanan PA-C [address] [facility] [place] [address] [place] [address] Referral IDStatusReasonStart DateExpiration DateVisits RequestedVisits [id number] Auto-Generated Referral / [facility] for visit Narrative* Diagnostic Procedure Only (Routine) - ClosedSpecialtyDiagnoses / ProceduresReferred By ContactReferred To Contact XR IMAGING Diagnoses Left shoulder pain, unspecified chronicity Procedures XR SHOULDER ORTHO 4V AP/TRUE AP/LAT/OUTLET LEFT RADEX SHOULDER COMPLETE MINIMUM 2 VIEWS Boo Buchanan PA-C [address] [facility] [place] [address] [place] [address] Referral IDStatMorrow County Hospital DateExpiration DateVisits RequestedVisits [id number] Auto-Generated Referral / [facility] for visit Narrative* Consultation (Routine) - Closed SpecialtyDiagnoses / ProceduresReferred By ContactReferred To ContactNeurology Diagnoses Neck pain on left side Procedures DC OFFICE/OUTPATIENT NEW HIGH MDM 60 MINUTES Renny Hansen MD [address] [facility] [address] [place] [address] Phone: tel: fax: Paula Lord MD [address] [place] [address] Phone: tel: fax: Referral IDStatusReMary [facility] DateExpiration DateVisits RequestedVisits [id number] Specialty Services Required / [facility] Summary Purpose Family History No Family History Records Found Relationship Condition Age at Onset Recorded Date/T sarah father Unknown motherDeceasedUnknown Advance Directives No Advanced Directives Records Found [...] Iron deficiency anemia May 03, 2025 1:47pm Chief Complaint Admit Date Follow Up May 03, 2025 1: 47pm Iron Deficiency May 27, 2025 12:38pm Iron Deficiency Anemia June 06, 2 025 8:10am Reason for Referral SpecialtyDiagnoses / ProceduresReferred By ContactReferred To Contact Diagnoses Chronic left shoulder pain Jazmín Calvillo, ELBERT [address] [place] [address] Referral IDStatusReasonStart DateExpiration DateVisits RequestedVisits [id number] Review/[id number] / Procedures Referred By ContactReferred To ContactCT IMAGING Diagnoses 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) Procedures CT SHOULDER WO IVCON LEFT CT UPPER EXTREMITY W/O CONTRAST MATERIAL Boo Buchanan PA-C [address] [place] [address] [place] [address] Referral IDStatusReasonStart DateExpiration DateVisits RequestedVisits [id number] Request Auto-Generated Referral /[id number] / ProceduresReferred By ContactReferred To ContactXR IMAGING Diagnoses Left shoulder pain, unspecified chronicity Procedures XR SHOULDER ORTHO 4V AP/TRUE AP/LAT/OUTLET LEFT RADEX SHOULDER COMPLETE MINIMUM 2 VIEWS Boo Buchanan PA-C [address] [place] [address] [place] [address] Referral IDStatusReasonStfair haven DateExpiration DateVisits RequestedVisits [id number] Auto-Generated Referral / Additional Source Comments INFORMATION SOURCE (unrecogn ized section and content) DATE CREATED AUTHOR 10/23/2021 [facility] DATE CREATED AUTHOR AUTHOR'S ORGANIZ ATION 01/22/2022 [facility] DATE CREATED AUTHOR AUTHOR'S ORGANIZ ATION 02/18/2023 [facility] DATE CREATED AUTHOR AUTHOR'S ORGANIZ ATION 05/24/2024 [facility] DATE CREATED AUTHOR AUTHOR'S ORGANIZ ATION 05/26/2025 [facility] DATE CREATED AUTHOR AUTHOR'S ORGANIZ ATION 06/16/2025 [facility] DATE CREATED AUTHOR AUTHOR'S ORGANIZ ATION 07/18/2025 [facility] DATE CREATED AUTHOR AUTHOR'S ORGANIZ ATION 07/20/2025 [facility] DATE CREATED AUTHOR AUTHOR'S ORGANIZ ATION 07/25/2025 [facility] DATE CREATED AUTHOR AUTHOR'S ORGANIZ ATION 07/26/2025 [facility] REASON FOR VISIT (unrecogniz ed section and content) ReasonCommentsPainSpecialtyDiagnoses / ProceduresReferred By ContactReferred To ContactOrthopaedic Surgery Diagnoses Injury of left shoulder and upper arm, sequela Left shoulder pain, unspecified chronicity Renny Hansen MD [address] [facility] [address] [place] [address] Phone: tel: fax: Jr. Sakina Cardenas, DO [address] [place] [address] Phone: tel: fax: Referral IDStatusReasonStfair haven DateExpiration DateVisits RequestedVisits [id number] Specialty Services Required /[id number] XRReasonCommentsNewSpecialtyDiagnoses / ProceduresReferred By ContactReferred To ContactOrthopedics / [facility] Diagnoses Acute pain of left shoulder History of reverse total replacement of left shoulder joint Procedures OFFICE/OUTPATIENT NEW HIGH MDM 60 MINUTES OFFICE/OUTPATIENT ESTABLISHED HIGH MDM 40 MIN AMB REFERRAL TO ORTHOPAEDIC SURGERY Pedro Pablo Cruz PA [address] [facility] [address] [place] [address] González Alvarado MD [address] [place] [address] Referral IDStatusReasonStart DateExpiration DateVisits RequestedVisits [id number]/[id number] Refill ReasonCommentsEstablish CarePrevious pcp Dr Oleary cardiology-dr Ferrell. G-- orthopedicHypertensionReasonCommentsResultsEMG RESULTSpost nasal drainage ReasonCommentsNauseaReasonCommentsNauseaResultsUGI resultsReasonOnset Date CommentsMed [id number]-upCoughReasonOnset DateComments Med Ptqlvc2909/14/2024ReasonCommentsConsultLt axillary lymphadenopathyReason CommentsMedicare Annual Wellness Visit SubsequentReasonCommentsFollow-upReason Onset DateCommentsOP Note11/09/2024ReasonCommentsResultsMammo and breast us resultsHypertensionReasonCommentsURIReasonCommentsHypertensionchange in urine color Care Teams (unrecognized sec tion and content) Team Status: Active Member Role Status Dates Shaikh Cira MD Primary Care Provider Active Team Status: Inactive Member Role Status Dates THANG Porter Attending Provider Active Ambar Bowen ProviderActive Team Status: Inactive Member Role Status Dates THANG Porter Attending Provider Active St art: September 08, 2023 End: September 08, 2023Ambar Bowen Care ProviderActiveStart: September 08, 2023 End: September 08, 2023 Team Status: Inactive Member Role Status Dates THANG Porter Attending Provider Active St art: October 11, 2023 End: October 11, 2023Ambar Bowen Care ProviderActiveStart: October 11, 2023 End: October 11, 2023Team MemberRelationshipSpecialtyStart DateEnd Date Shaikh Denis MD PCP - GeneralInternal Medicine04/05/23 Team Status: Inactive Member Role Status Opal Denis MD Primary Care Provider Active Start: March 29, 2024 End: March 29Kalee Malagon ProviderActiveStart: March 29, 2024 End: March 29, 2024 Team Status: Inactive Member Role Status Dates Shaikh Cira MD Primary Care Provider Active Start: April 10, 2024 End: April 10Kalee Malagon ProviderActiveStart: April 10, 2024 End: April 10, 2024 Team Status: Inactive Member Role Status Dates Shaikh Cira MD Primary Care Provider Active Start: May 02, 2024 End: May 02, 2024DANIELLE Koroma-CAttencarrie ProviderActiveStart: May 02, 2024 End: May 02, 2024Team MemberRelationshipSpecialtyStart DateEnd Date Luisana Johnson MD [address] [place], [place] [address] PCP - General01/05/06 Pedro Pablo Cruz MD [address] [place] [address] ReferringInfectious Diseases05/07/24Team MemberRelationshipSpecialtyStart DateEnd Date Luisana Johnson MD [address] [place], [place] [address] PCP - General01/05/06 Pedro Pablo Cruz MD [address] [place] [address] ReferringInfectious Diseases05/07/24Team MemberRelationshipSpecialtyStart DateEnd Date Luisana Johnson MD [address] [place], [facility] PCP - General01/05/06 Pedro Pablo Cruz MD [address] [place], [place] [id number] ReferringInfectious Diseases05/07/24Team MemberRelationshipSpecialtyStart DateEnd Date Wesley Long MD [address] [place] [address] PCP - GeneralFamily Medicine05/17/24 Jazmín Calvillo NP [address] [place] [address] Nurse Practitionermily Medicine05/17/24Team MemberRelationshipSpecialtyStart DateEnd Date Wesley Long MD [address] [place] [address] PCP - Generalmily Medicine05/17/24 Jazmín Calvillo, ELBERT [address] [place] [address] Nurse PractitionerMercyone [facility]ouxland [facility] Centerly Medicine05/17/24Team MemberRelationshipSpecialtyStart DateEnd Date Wesley Long MD [address] [place] [address] PCP - GeneralFamily Medicine05/17/24 Jazmín Calvillo, ELBERT [address] [place] [address] Nurse Practitionermily Medicine05/17/24Team MemberRelationshipSpecialtyStart DateEnd Date Wesley Long MD [address] [place] [address] PCP - GeneralFamily Medicine05/17/24 Jazmín aClvillo NP [address] [place] [address] Nurse Practitionermily Medicine05/17/24Team MemberRelationshipSpecialtyStart DateEnd Date Wesley Long MD [address] [place] [address] PCP - GeneralFamily Medicine05/17/24 Jazmín Calvillo, ELBERT [address] [place] [address] Nurse [facility]05/17/24Team MemberRelationshipSpecialtyStart DateEnd Date Wesley Long MD [address] [place] [address] PCP - Generalmily Medicine05/17/24 Jazmín Calvillo, ELBERT [address] [place] [address] [facility] Medicine05/17/24Team MemberRelationshipSpecialtyStart DateEnd Date Wesley Long MD [address] [place] [address] PCP - GeneralFamily Medicine05/17/24 Jazmín Calvillo, ELBERT [address] [place] [address] Nurse Pract[facility]Ph[facility]uf Hospital Medicine05/17/24Team MemberRelationshipSpecialtyStart DateEnd Date Wesley oLng MD [address] [place] [address] PCP - GeneralFamily Medicine05/17/24 Jazmín Calvillo NP [address] [place] [address] Nurse Practitionermily Medicine05/17/24Team MemberRelationshipSpecialtyStart DateEnd Date Wesley Long MD [address] [place] [address] PCP - GeneralFamily Medicine05/17/24 Jazmín Calvillo NP [address] [place] [address] Nurse Practitionermily Medicine05/17/24Team MemberRelationshipSpecialtyStart DateEnd Date Wesley Long MD [address] [place] [address] PCP - GeneralFamily Medicine05/17/24 Jazmín Calvillo, ELBERT [address] [place] [address] Nurse Practitionermily Medicine05/17/24Team MemberRelationshipSpecialtyStart DateEnd Date Wesley Long MD [address] [place] [address] PCP - GeneralFamily Medicine05/17/24 Jazmín Calvillo, ELBERT [address] [place] [address] Nurse Practitionermily Medicine05/17/24Team MemberRelationshipSpecialtyStart DateEnd Date Wesley Long MD [address] [place] [address] PCP - GeneralFamily Medicine05/17/24 Jazmín Calvillo, ELBERT [address] [place] [address] [facility]Ph[facility] Medicine05/17/24Team MemberRelationshipSpecialtyStart DateEnd Date Wesley Long MD [address] [place] [address] PCP - Generalmily Medicine05/17/24 Jazmín Calvillo, ELBERT [address] [place] [address] [facility]Ph[facility] Medicine05/17/24Team MemberRelationshipSpecialtyStart DateEnd Date Wesley Long MD [address] [place] [address] PCP - GeneralFamily Medicine05/17/24 Jazmín Calvillo, EBLERT [address] [place] [address] Nurse [facility]Ph[facility] Medicine05/17/24Team MemberRelationshipSpecialtyStart DateEnd Date Shaikh Denis MD [address] [place] [address] PCP - GeneralInternal Medicine10/17/23Te MemberRelationshipSpecialtyStart Date End Date Shaikh Denis MD [address] [place] [address] PCP - GeneralInternal Medicine10/17/23Te MemberRelationshipSpecialtyStart Date End Date Shaikh Denis MD [address] [place] [address] PCP - GeneralInternal Medicine10/17/23Te MemberRelationshipSpecialtyStart Date End Date Wesley Long MD [address] [place] [address] PCP - Generalmily Medicine05/17/24 Jazmín Calvillo NP [address] [place] [address] Nurse PractitionerMercyone [facility]ouxland [facility] Centerly Medicine05/17/24Te MemberRelationshipSpecialtyStart DateEnd Date Wesley Long MD [address] [place] [address] PCP - Generalmily Medicine05/17/24 Jazmín Calvillo NP [address] [place] [address] Nurse Practitionermily Medicine05/17/24Team MemberRelationshipSpecialtyStart DateEnd Date Wesley Long MD [address] [place] [address] PCP - GeneralFamily Medicine05/17/24 Jazmín Calvillo, ELBERT [address] [place] [address] Nurse Practitionermily Medicine05/17/24Team MemberRelationshipSpecialtyStart DateEnd Date Wesley Long MD [address] [place] [address] PCP - GeneralFamily Medicine05/17/24 Jazmín Calvillo, ELBERT [address] [place] [address] Nurse Practitionermily Medicine05/17/24Team MemberRelationshipSpecialtyStart DateEnd Date Wesley Long MD [address] [place] [address] PCP - GeneralFamily Medicine05/17/24 Jazmín Calvillo, ELBERT [address] [place] [address] Nurse PractitionerMercyone [facility]oux[facility] Centerly Medicine05/17/24Team MemberRelationshipSpecialtyStart DateEnd Date Renny Hansen MD [address] [place] [address] PCP - GeneralInternal Medicine09/19/24 Team Status: Active Member Role Status Dates Renny Hansen II MD Primary Care Provider Active Team Status: Inactive Member Role Status Dates Renny Hansen II MD Primary Care Provid er, Referring Provider Active Start: August 24, 2024 End: August 24, 2024Evans Shaver ProviderActive Start: August 24, 2024 End: August 24, 2024 Team Status: Inactive Member Role Status Dates Pedro Pablo Cruz PA-C Attending Provider Active S tart: August 24, 2024 End: August 24GEOVANY HolbrookNort[facility] ProviderActiveStart: August 24, 2024 End: August 24, 2024 Team Status: Inactive Member Role Status Dates Renny Hansen II MD Primary Care Provider Active Start: September 25, 2024 End: September 25, 2024Evans Shaver ProviderActive Start: September 25, 2024 End: September 25Wander Nation ProviderActiveStart: September 25, 2024 End: September 25, 2024Team MemberRelationshipSpecialtyStart DateEnd Date Renny Hansen MD [address] [facility] [address] [place] [address] [facility]/19/24Team MemberRelationshipSpecialtyStart Date End Date Renny Hansen MD [address] [facility] [address] [place] [address] PCP - GeneralInternal Medicine09/19/24Team MemberRelationshipSpecialtyStart Date End Date Renny Hansen MD [address] [facility] [address] [place] [address] PCP - GeneralBanner Desert Medical Centernal Medicine09/19/24Team MemberRelationshipSpecialtyStart Date End Date Renny Hansen MD [address] [facility] [address] [place] [address] [facility] - [facility]09/19/24 Team Status: Active Member Role Status Dates Renny Hansen II MD Primary Care Provid er, Referring Provider Active Start: October 02, 2024 Katharina Toledo , APRNAttending ProviderActiveStart: October 02, 2024 Team Status: Inactive Member Role Status Dates Renny Hansen II MD Primary Care Provider Active Start: October 16, 2024 End: October 16, 2024Dmitriy Duque DOAttending ProviderActiveStart: October 16, 2024 End: October 16, 2024Team MemberRelationshipSpecialtyStart DateEnd Date Renny Hansen MD [address] [facility] [address] [place] [address] PCP - [facility] Medicine09/19/24Team MemberRelationshipSpecialtyStart Date End Date Renny Hansen MD [address] [facility] [address] [place] [address] [facility] - [facility]09/19/24 Team Status: Inactive Member Role Status Dates Renny Hansen II MD Primary Care Provider Active Start: October 24, 2024 End: October 24, 2024Georomayra Cardenas Jr DOAttending ProviderActiveStart: October 24, 2024 End: October 24, 2024 Team Status: Inactive Member Role Status Dates Renny Hansen II MD Primary Care Provider Active Start: October 29, 2024 End: October 29, 2024Juan Monahan II, DOAttending ProviderActiveStart: October 29, 2024 End: October 29, 2024 Team Status: Active Member Role Status Dates Renny Hansen II MD Primary Care Provid er, Referring Provider Active Start: October 29, 2024 Thihussein Toledo , APRNAttencarrie ProviderActiveStart: October 29, 2024 Team MemberRelationshipSpecialtyStart DateEnd Date Renny Hansen MD [address] [facility] [address] [place] [address] PCP - GeneralInternal Medicine09/19/24 Renny Hansen MD [address] [place] [address] PCP - [facility] [place]09/12/2511 Cindi Jenkins, DRESS CAP MAKER Social WorkerOptim Medical [facility]11/06/24Team MemberRelationshipSpecialtyStart DateEnd Date Renny Hansen MD [address] [place] [address] PCP - GeneralInternal Medicine09/19/24 Renny Hansen MD [address] [place] [address] PCP - [facility] [place]09/12/2511 Cindi Jenkins, DRESS CAP MAKER Social WorkerOpt[facility]11/06/24Team MemberRelationshipSpecialtyStart DateEnd Date Renny Hansen MD [address] [place] [address] PCP - GeneralInternal Medicine09/19/24 Renny Hansen MD [address] [place] [address] PCP - [facility] [place]09/12/2511 Cindi Jenkins, DRESS CAP MAKER Social WorkerOpt[facility]11/06/24Team MemberRelationshipSpecialtyStart DateEnd Date Renny Hansen MD [address] [place] [address] PCP - GeneralInternal Medicine09/19/24 Renny Hansen MD [address] [place] [address] PCP - [facility] [place]09/12/2511 Lisa Ramirez LPN 12/05/24Team MemberRelationshipSpecialtyStart DateEnd Date Renny Hansen MD [address] [place] [address] PCP - GeneralInternal Medicine09/19/24 Renny Hansen MD [address] [place] [address] PCP - [facility] [place] 09/12/2511 Lisa Ramirez [facility] 12/05/24Team MemberRelationshipSpecialtyStart DateEnd Date Renny Hansen MD [address] [place] [address] PCP - GeneralInternal Medicine09/19/24 Renny Hansen MD [address] [place] [address] PCP - [facility] [place]09/12/2511 Lisa Ramirez [facility] 12/05/24Team MemberRelationshipSpecialtyStart DateEnd Date Renny Hansen MD [address] [place] [address] PCP - GeneralInternal Medicine09/19/24 Renny Hansen MD [address] [place] [address] PCP - [facility] [place]09/12/2511 Lisa Ramirez FURNIT[employer]CH[employer]IC 12/05/24Team MemberRelationshipSpecialtyStart DateEnd Date Renny Hansen MD [address] [place] [address] PCP - GeneralInternal Medicine09/19/24 Renny Hansen MD [address] [place] [address] PCP - [facility] [place]09/12/2511 Lisa Ramirez LPN 12/05/24Team MemberRelationshipSpecialtyStart DateEnd Date Renny Hansen MD [address] [place] [address] PCP - GeneralInternal Medicine09/19/24 Renny Hansen MD [address] [place] [address] PCP - [facility] [place]09/12/2511 Lisa Ramirez LPN [address] [place] [address] 12/05/24Team MemberRelationshipSpecialtyStart DateEnd Date Renny Hansen MD [address] [place] [address] PCP - GeneralInternal Medicine09/19/24 Renny Hansen MD [address] [place] [address] PCP - [facility] [place]09/12/2511 Lisa Ramirez LPN [address] [place] [address] 12/05/24Team MemberRelationshipSpecialtyStart DateEnd Date Renny Hansen MD [address] [place] [address] PCP - GeneralInternal Medicine09/19/24 Renny Hansen MD [address] [place] [address] PCP - [facility] [place] 09/12/2511 Lisa Ramirez LPN [address] [place] [address] 12/05/24Team MemberRelationshipSpecialtyStart DateEnd Date Renny Hansen MD [address] [place] [address] PCP - GeneralInternal Medicine09/19/24 Renny Hansen MD [address] [place] [address] PCP - [facility] [place] 09/12/2511 Lisa Ramirez LPN [address] [place] [address] 12/05/24Team MemberRelationshipSpecialtyStart DateEnd Date Renny Hansen MD [address] [place] [address] PCP - GeneralInternal Medicine09/19/24 Renny Hansen MD [address] [place] [address] PCP - [facility] [place] 09/12/2511 Lisa Ramirez LPN [address] [place] [address] 12/05/24 Team Status: Inactive Member Role Status Dates Renny Hansen II MD Primary Care Provider Active Start: May 03, 2025 End: May 03lucho Spears , 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-CAttending ProviderActiveStart: May 03, 2025 End: May 03, 2025 Team Status: Active Member Role Status Dates Renny Hansen II MD Primary Care Provider Active Start: May 03, 2025 Renny Hansen II MDReferring ProviderActiveStart: May 03, 2025 Katharina Jaegercaesarsebas , APRNAttending ProviderActiveStart: May 03, 2025 Team Status: Active Member Role Status Dates Renny Hansen II MD Primary Care Provider Active Start: May 27, 2025 Renny Hansen II MDReferring ProviderActiveStart: May 27, 2025 Juan Monahan II, DOAttending ProviderActiveStart: May 27, 2025 Team Status: Active Member Role Status Dates Renny Hansen II MD Primary Care Provider Active Start: June 06, 2025 Dawson Gustafson MDAttending ProviderActiveStart: June 06, 2025 Dawson Gustafson MDOther ProviderActiveStart: June 06, 2025 Team MemberRelationshipSpecialtyStart DateEnd Date Renny Hansen MD [address] [place] [address] PCP - GeneralInternal Medicine09/19/24 Renny Hansen MD [address] [address] PCP - [facility] [place]09/12/2511 Lisa Ramirez LPN [address] [address] 12/05/24Team MemberRelationshipSpecialtyStart DateEnd Date Shaikh Denis MD PCP - GeneralInternal Medicine Renny Hansen MD [address] [place] [address] PCP - GeneralInternal Medicine09/19/24 Renny Hansen MD [address] [place] [address] PCP - [facility] [place]09/12/2511 Jazmín Calvillo, ELBERT Nurse PractitionerFamily Medicine Cindi Jenkins, DRESS CAP MAKER [address] [place] [address] Social WorkerFamily Medicine Lisa Ramirez LPN [address] [facility] [address] [place] [address] 12/05/24Team MemberRelationshipSpecialtyStart DateEnd Date Renny Hansen MD [address] [facility] [address] [place] [address] PCP - GeneralInternal Medicine09/19/24 Renny Hansen MD [address] [facility] [address] [place] [address] PCP - [facility] [place]09/12/2511 Jazmín Calvillo, ELBERT Nurse PractitionerMercyone Siouxland Medical Centerly Medicine Cindi Jenkins, DRESS CAP MAKER [address] [place] [address] Social WorkerMercyone Siouxland Medical Centerly Medicine Lisa Ramirez LPN [address] [facility] [address] [place] [address] 12/05/24Team MemberRelationshipSpecialtyStart DateEnd Renny Hansen MD [address] [facility] [address] [place] [address] PCP - GeneralInternal Medicine09/19/24 Renny Hansen MD [address] [facility] [address] [place] [address] PCP - [facility] [place]09/12/2511 Jazmín Calvillo NP Nurse PractitionerFamily Medicine Cindi Jenkins, DRESS CAP MAKER [address] [facility] [place] [address] Social WorkerFapaly Medicine Lisa Ramirez LPN [address] [facility] [address] [place] [address] 12/05/24Team MemberRelationshipSpecialtyStart DateEnd Date Renny Hansen MD [address] [facility] [address] [place] [address] PCP - GeneralInternal Medicine09/19/24 Renny Hansen MD [address] [facility] [address] [place] [address] PCP - [facility] [place]09/12/2511 Lisa Ramirez LPN [address] [facility] [address] [place] [address] 12/05/24 Goals (unrecognized section and content) Goals may be documented in a n alternate section Source Comments (unrecognize d section and content) In the event this informatio n is protected by the Federal Confidentiality of Alcohol and Drug Abuse Patient Records regulations: The Federal rules restrict any use of the information to criminally investigate or prosecute any alcohol or drug abuse patient.Prem[facility] HealthIn the event this information is protected by the Federal Confidentiality of Alcohol and Drug Abuse Patient Records regulations: The Federal rules restrict any use of the information to criminally investigate or prosecute any alcohol or drug abuse patient.Prem[facility] HealthIn the event this information is protected by the Federal Confidentiality of Alcohol and Drug Abuse Patient Records regulations: The Federal rules restrict any use of the information to criminally investigate or prosecute any alcohol or drug abuse patient.[facility] FOR RECORDS PERTAINING TO PATIENTS WHO ARE [...] BE BASED ON THE PRIMARY CLINICAL RECORDS. [facility]. provides no warranty or guarantee of the accuracy or completeness of information in this document.
[2025-08-02 13:24] LABS: Hematocrit 38.3 % (36.0-48.0); Hemoglobin 12.3 g/dL (12.0-16.0); Immature Granulocytes Abs Auto 0.01 10^3/uL (0.00-0.03); Immature Granulocytes Pct Auto 0.1 % (0.0-0.5); Lymphocytes Absolute Auto 2.5 10^3/uL (1.2-3.8); Mean Corpuscular HGB Conc 32.1 g/dL (29.9-35.2); Mean Corpuscular Hemoglobin 27.0 pg (26.7-34.0); Mean Corpuscular Volume 84.2 fL (81.0-99.0); Platelet Count 313 10^3/uL (150-450); Red Blood Count 4.55 10^6/uL (4.20-5.40); White Blood Count 8.9 10^3/uL (4.0-11.0)
[2025-08-02 13:33] LABS: Alanine Aminotransferase 48 U/L (14-59); Albumin Globulin Ratio 0.7; Albumin Level 3.4 g/dL (3.4-5.0); Alkaline Phosphatase 128 U/L (46-116); Anion Gap 11.3; Aspartate Amino Transferase 61 U/L (15-37); Blood Urea Nitrogen 18.0 mg/dL (7.0-18.0); Calcium 9.1 mg/dL (8.5-10.1); Carbon Dioxide 27.9 mmol/L (21.0-32.0); Chloride 103 mmol/L (98-107); Estimated GFR (African America >60 (>=60 mL/min/1.73m^2); Estimated GFR (Non-African Ame >60 (>=60 mL/min/1.73m^2); Globulin 4.8 g/dL; Glucose 100 mg/dL (74-106); Potassium 4.2 mmol/L (3.5-5.1); Sodium 138 mmol/L (136-145); Total Protein 8.2 g/dL (6.4-8.2)
[2025-08-02 13:48] LABS: Iron 31.0 ug/dL (50.0-170.0); Percent Iron Saturation 8.0 %; Total Iron Binding Capacity 387.0 ug/dL (250.0-450.0)
[2025-08-02 14:01] LABS: Ferritin 28.0 ng/mL (8.0-252.0)
== END 2025-08-02 12:53 | disposition home or self-care (01) ==
LOC: LAB 12:54
PROVIDERS: PCP Internal Medicine; Visit Provider Nurse Practitioner Adult Health
DX: D50.9 Iron deficiency anemia, unspecified (principal)
CPT/HCPCS: 36415; 80053; 82728; 83540; 83550; 85025

== ENCOUNTER 2025-08-28 10:20 | Outpatient (OUT) | payer MEDICARE, SELFPAY ==
--- OUTSIDE RECORDS SUMMARY | 2025-08-28 10:23 | XMS_ITS | Clinical Summary ---
Author Organization [facility] Address [address] [place] [address] Care Team Providers Care Track Sweeper Name Role Phone Paulette Johnson MD Primary Care Provider [phone] Scott Cruz MD Unavailable [phone] Allergies Active AllergyReactionsCriticalityNoted TsomDkbhrdyvNniyketsHdrwhqxc30/08/2024 Medications MedicationSigDispense QuantityRefillsLast FilledStart DateEnd DateStatus baclofen [...] UseTypesPacks/DayYears UsedDateSmoking Tobacco: NeverSmokeless Tobacco: NeverAlcohol UseStandard Drinks/VpmwHoukuehgZaf89 (1 standard drink = 0.6 oz pure alcohol)CommentsUnknownSex and Gender InformationValueDate Recorded Sex Assigned at BirthNot on fileLegal ChhVyljlb71/02/2012 8:02 AM ESTGender IdentityNot on fileSexual OrientationNot on file Last Filed Vital Signs Vital SignReadingTime TakenCommentsBlood Pressure--Pulse--Temperature-- Respiratory Rate--Oxygen Saturation--Inhaled Oxygen Concentration--Ghryzp75.8 kg (220 lb)05/22/2024 1:17 PM UBJYjzkzm044.9 cm (4' 11 )05/22/2024 1:17 PM EDTBody Mass Index44.4309 1:17 PM EDT Plan of Treatment Health MaintenanceDue DateLast DoneCommentsAnxiety Mspyndyal92/21/1966Depression Efruautub45/21/1966Hepatitis C Jpxosmqkt85/21/1966DTaP,Tdap,Td Vaccine (1 - Tdap)11/30/1966Diabetes Feerxzfsq73/21/1993Shingrix Vaccine (1 of 2)11/30/1997 Bone Density Izzlrkgsu43/21/2013dvance Directive Leeigysofr27/01/2025Medicare Advantage Annual Wellness Visit09/12/2024ovid-19 Vaccine ( season) 503/05/2021, 10/20/2020Influenza Vaccine (#1)/, 07/08/2022, 08/20/2021, Additional history existsPneumococcal Vaccine: 50+ Seltuxtej58/09/2021, 08/04/2020, 07/05/2017RSV HbglgdqLvpugtaeo16/14/2023 Insurance Care Teams Team MemberRelationshipSpecialtyStart DateEnd Paulette Johnson MD [address] [place] [address] PCP - General01/05/06 Scott Cruz MD [address] [address] ReferringInfectious Diseases05/07/24
--- OUTSIDE RECORDS SUMMARY | 2025-08-28 10:23 | XMS_ITS | Encounter Summary ---
Author Organization [facility] Address [address] [facility] [place] [address] Care Team Providers Care Thermo Cementing Folder Operator Name Role Phone Renny Hansen MD Primary Care Provider [phone] Renny Hansen MD Unavailable [phone] Lisa Ramirez LPN Unavailable Encounter Details DateTypeDepartmentCare Team (Latest Contact Info)Qnlimdwitsf64/04/2025Telephone [facility] [address] [facility] [address] [place] [phone] Renny Hansen MD [address] [facility] [address] [place], [place] [id number] Social History Tobacco UseTypesPacks/DayYears UsedDateSmoking Tobacco: ZhqvbaOzsgkkyvte551 Started: 1967Passive Smoke Exposure: PastAlcohol UseStandard Drinks/WeekComments Yes0 (1 standard drink = 0.6 oz pure alcohol)[id number] Health Literacy AnswerDate RecordedHow often do you [...] relatives?Twice a week11/12/2024How often do you attend judaism or uatsdin services?Patient safbkibw92/03/2025Do you belong to any clubs or organizations such as judaism groups, unions, fraNeocoretech or athletic groups, or school groups?No11/12/2024How often do you attend meetings of the clubs or organizations you belong to?Patient ynbfyzam67/03/2025re you , , , , never , or living with a partner?Living with partner 11/12/2024UDIT-CAnswerDate RecordedQ1: How often do you have a drink containing alcohol?Patient bktikpow26/29/2025Q2: How many drinks containing alcohol do you have on a typical day when you are drinking?Patient vsceggba62/29/2025Q3: How often do you have six or more drinks on one occasion?Patient /29/2025 Overall Financial Resource Strain (CARDIA)AnswerDate RecordedHow hard is it for you to pay for the very basics like food, housing, medical care, and heating?Not hard at all11/12/2024PHQ-2AnswerDate RecordedPatient Health Questionnaire-2 [facility]198[facility] [place] [facility] - Occupational Stress QuestionnaireAnswerDate RecordedDo you feel stress - tense, restless, nervous, or anxious, or unable to sleep at night because yourmind is troubled all the time - these days?To some lcbmjq8211/12/2024Exercise Vital SignAnswerDate Recorded On average, how many [...] place to sleep or slept in [facility] (including now)?Patient ymqejxx6408/30/2023Housing Stability Vital SignAnswerDate RecordedIn the last 12 months, was there a time when you were not able to pay the mortgage or rent on time?No11/12/2024In the past 12 months, how many times have you moved where you were living?t any time in the past 12 months, were you homeless or living in a skilled nursing (including now)?No 11/12/2024CommentsUnknownSex and Gender InformationValueDate RecordedSex Assigned at BirthNot on fileLegal EubXgnxdl17/15/2023 6:35 PM EDTGender Identity Not on fileSexual OrientationNot on filedocumented as of this encounter Progress Notes * Lisa Ramirez LPN - 08/16/2025 3:44 PM EST Informed pt that PCP sent medication and will take over now. Pt thanks com writer for update and has noquestions. * Lisa Ramirez LPN - 08/15/2025 1:36 PM EST Returned call to pt who asks if PCP is going to take over her prescription for Penicillin 500mg. She shares that they have discussed this previously and PCP stated they would. Pt does not know if this can start now or if she should call ID Dr. Hines for refills until October when she stops seeing him. I let her know I will ask PCP and let her know. documented in this encounter Miscellaneous Notes * Telephone Encounter - Renny Hansen MD - 08/16/2025 12:24 PM EST Rx was sent. * Telephone Encounter - Saira Niño MA - 08/15/2025 12:45 PM EST This is Kimberly Starks. My my [birth year] is [birth year]. My phone numbers [phone]. Can you please give me a call? Thank you. 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 documented in this encounter Additional Health Concerns AssessmentNoted TimePHQ-9 Depression Total Score: 2:00 PM EST documented as of this encounter Care Teams Team MemberRelationshipSpecialtyStart DateEnd Date Renny Hansen MD [address] [place] [address] [facility] - [facility] Renny Hansen MD [address] [place] [address] [place] [address] PCP - Medical [facility]09/12/2511 Lisa Ramirez LPN [address] [place] [address] 12/05/24documented as of this encounter
--- OUTSIDE RECORDS SUMMARY | 2025-08-28 10:23 | XMS_ITS | Clinical Summary ---
Author Organization [employer] [facility] Address [id number] [address] [place] [address] Care Team Providers Care Scrap Collector Name Role Phone Unavailable Primary Care Provider Unavailabl e Social History Tobacco UseTypesPacks/DayYears UsedDateSmoking Tobacco: Never AssessedChildcare AnswerDate SuriyltnSrmxweedwYdmonbo74/12/2019EmploymentAnswerDate Recorded XxaqtwvaihJohujej68/12/2019Purpose - LifeAnswerDate RecordedPurpose and direction in rwvcRmlsnbb58/11/2021CommentsUnknownSex and Gender InformationValueDate RecordedSex Assigned at BirthNot on fileLegal SexFemale 04/17/2015 11:41 AM EDTGender IdentityNot on fileSexual OrientationNot on file Plan of Treatment Not on file Medical Devices [place] [address]
--- OUTSIDE RECORDS SUMMARY | 2025-08-28 10:23 | XMS_ITS | Clinical Summary ---
Author Organization [facility] Address [address] [place] [address] Care Team Providers Care Fire Equipment Operator Name Role Phone Renny Hansen MD Primary Care Provider [phone] Renny Hansen MD Unavailable [phone] Lisa Ramirez LPN Unavailable Allergies Active AllergyReactionsCriticalityNoted VjxtEldnuevjNelbvitXiwdVmw48/05/2024 Exetmk3211/16/2023 Other Reaction(s): HEART ISSUES Wound Dressing TnmljjpcIweeBbt64/08/2024 Medications MedicationSigDispense QuantityRefillsLast FilledStart DateEnd DateStatus Multiple Vitamins-Minerals (CENTRUM SILVER 50+WOMEN PO) Take 1 tablet by mouth in the morning.Active flecainide (Tambocor) 100 MG tablet Take 100 mg by mouth every 12 (twelve) hours03/08/2024ctive baclofen (Lioresal) 10 MG tablet Take 10 mg by mouth in the morning and 10 mg in the evening and 10 mg before bedtime.06/21/2024ctive HYDROcodone-acetaminophen ([place]) 5-325 MG tablet Take 1 tablet by [...] penicillin v potassium (Veetid) 500 MG tablet Indications: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Take 1 tablet (500 mg) by mouth in the morning and 1 tablet (500 mg) before bedtime. 60 tablet [id number], Clinic, or Other Facility Administered MedicationOrdered DoseRouteFrequencyStart DateEnd DateStatus triamcinolone acetonide (Kenalog-40) injection 40 mg Indications:Wsfvpjwbdm36 izKFIzdh65/24/2025Active Active Problems ProblemNoted DateDiagnosed Date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02/22/2025HF (congestive heart failure)09/24/2024History of ulcer ankrajj4009/24/20247874Nkazhdiugzrbjl01/13/2025Positive fecal occult blood test 09/24/2024Gastroesophageal reflux disease without bnnzqguolbz59/05/2024 Obstructive sleep apnea waindmve04/06/2024ulmonary /06/2024 Degenerative disc disease, qzylfvcr15/24/2024bnormal CT scan, neck07/05/2024 Enlarged lymph nodes in icniai25Sigmoid ijrpgopgcvehgr70/24/2024nemia due to multiple wmkmvcdxqu13/24/2024Irritable bowel skduypxs08/24/2024Iron deficiency anemia due to chronic blood loss03/12/2024 [...] omeprazole. Acute on chronic diastolic (congestive) heart pbbpywg6702/27/2024 Assessment & Plan (06/02/2024 10:19 AM EDT): [...] to assess cardiac structure. Cardiac pacemaker in situ01/19/2024iastolic cuzzwriqulo80/09/2024rthritis of right acromioclavicular joint11/07/2023losed fracture of fifth metatarsal bone 11/07/2023ontusion of left nedfncbn23/26/2024Impingement syndrome of right mrymeqox92/26/2024Sick sinus syndrome (I49.5)11/07/2023 Assessment & Plan (11/07/2023 3:19 PM EST): S/p PPM Hiatal npmjzq9510/17/2023Shoulder pain10/17/2023 Assessment & Plan (04/11/2024 2:10 PM [...] place. MRI ordered, awaiting approval. Will order [place] as needed as it helped with pain. [...] pain of left knee09/06/2023rthritis of left shoulder yoyaff3109/06/2023 Peptic ulcer unvqhpj4609/06/2023hronic bilateral low back pain with sciatica 09/06/2023 [...] for her symptoms. Medicare annual wellness visit, ggimfsghwy25/26/2023 Assessment & Plan (09/06/2023 2:49 PM EST): Patient here for medicare wellness. Doing well overall other than chronic back pain. Upto date on Colon Cancer screening, breast cancer screening. Reviewed medications, counseled on lifestyle measures, importance of compliance. Cervical rwjhcfcqpwgme71/20/2023 Overview (07/24/2024): C6 Hjqisxfyrzad71/20/2023Osteoarthritis of both knees03/01/2023Osteoarthritis of lumbar spine03/01/2023Steatosis of liver03/01/2023 Overview (09/06/2023): non alcoholic non alcoholic Spinal qtrjojld89/20/2023astric ulcer03/01/2023Venous yzggeqqsbgryj23/20/2023 Vitamin D xzjzaaekqz14/20/2023ersistent atrial qkyaprogcnur13/09/2023 Overview (09/06/2023): Last Assessment & Plan: -device check in may 2022 <1% AF, had 1 mode switch which lasted 6 seconds -will have her get device check to assess AF burden -TZH6VB5-OQGj 3 -Continue Xarelto 20 mg daily, continue propafenone to 25 mg 3 times a day Assessment & Plan (12/29/2023 2:36 PM EDT): S/P PPM. Follows [facility] cardiology. On Xarelto for stroke px. Also uses Flecainide, Verapamil. Assessment & Plan (11/07/2023 3:16 PM EST): S/P PPM. Follows [facility] cardiology. On Xarelto for stroke px. Also uses Flecainide, Verapamil. Assessment & Plan (09/06/2023 2:46 PM EST): S/P PPM. Follows [facility] cardiology. On Xarelto for stroke px. Sinus node tzeqkkholdw15/26/2021 Overview (09/06/2023): Last Assessment & Plan: - S/p PPM [employer] -We will have her scheduled for device check Wplgcnk1812/29/2012 Overview (09/06/2023): Last Assessment & Plan: Obesity [...] and educated on its side effects. Essential eaokcfwxbgcq83/03/2012 Overview (09/06/2023): Last Assessment & Plan: Hypertension [...] or persistently elevated BP. Chronic obstructive lung exscpzx0601/12/2012 Assessment & Plan (12/29/2023 2:36 PM EDT): Does not take anything for it. Fairly well controlled. Assessment & Plan (11/07/2023 3:17 PM EST): Does not take anything for it. Fairly well controlled. Had recent exacerbation with URTI - symptomsimproved now. Coronary zqwiqleqqlnjevu20/02/2012 Overview (09/06/2023): Last Assessment & Plan: Coronary artery disease is stable -no CP or LEA -last cath 2010, mild disease no PCI / stent -continue medications Edema01/12/2012Paroxysmal supraventricular gsagemavynl66/02/2012 Overview (09/06/2023): SHORT IMPROVED. Disorder of bursae of shoulder qgnemr0501/12/2012 Resolved Problems ProblemNoted DateDiagnosed DateResolved DateCOPD lsxtldjqwoqq57/05/2024 07/24/2024 Assessment & Plan (10/17/2023 10:59 AM [...] to make sure no Pneumonia Encounters DateTypeDepartmentCare HxtcYtpmrokgbbr02/04/2025Telephone [facility] [address] [place] [address] Renny Hansen MD 08/02/2025linisync Result Encounter [facility] External Department Unsolicited Provider, Generic External Data 08/02/2025bstract [facility] [address] [place] [address] Renny Hansen MD 07/31/2025bstract [facility] [address] [place] [address] Renny Hansen MD 07/30/2025bstract [facility] [address] [place] [address] Renny Hansen MD 07/29/2025bstract [facility] [address] [place] [address] Renny Hansen MD 07/29/2025bstract [facility] [address] [place] [address] Renny Hansen MD 07/25/2025bstract [facility] [address] [place] [address] Renny Hansen MD 07/25/2025bstract [facility] [address] [place] [address] Renny Hansen MD 07/24/2025bstract [facility] [address] [place] [address] Renny Hansen MD 07/18/2025 11:30 AM ESTOffice Visit [facility] [address] [place] [address] Renny Hansen MD Asymptomatic microscopic hematuria (Primary Dx); Acute cystitis with igybjkbbt83/06/2025amboo flowsheet [facility] [address] [facility] [address] [place] [address] Renny Hansen MD 07/18/20259129Zdwunn91/29/2025linisync Result Encounter [facility] External Department Unsolicited Provider, Generic External Data 07/05/2025 11:45 AM EDTOffice Visit [facility] [address] [facility] [address] [place] [address] Renny Hansen MD Zgqgswwcmm08/24/2025amboo flowsheet [facility] [address] [facility] [address] [place] [address] Renny Hansen MD 07/05/20257094Guodko13/25/2025bstract [facility] [address] [facility] [address] [place] [address] Renny Hansen MD 06/06/2025bstract [facility] [address] [place] [address] Renny Hansen MD 06/06/2025bstract [facility] [address] [facility] [address] [place] [address] Renny Hansen MD 06/03/2025Patient Outreach [facility] [address] [place] [address] Lisa Ramirez LPN from Last 3 Months Immunizations ImmunizationAdministration DatesNext DueInfluenza, High Dose Seasonal, Preservative Free08/06/2019Influenza, High-dose Seasonal, Quadrivalent, Preservative Free09/19/2024Influenza, Seasonal, Quadrivalent, Adjuvanted 08/25/2023,07/08/2022,08/20/2021,08/04/2020Influenza, Mtjagikwlrx66/14/2023, 07/08/2022,08/20/2021,08/04/2020,08/06/2019,07/05/2017,06/29/2016,06/25/2015, 06/12/2015,07/12/2014,08/07/2013Influenza, injectable, muquaxkphnus72/14/2015, 07/12/2014Influenza, seasonal, idupqfpiae23/26/2013Influenza, seasonal, intradermal, preservative free06/12/2015Influenza, trivalent, adjuvanted 07/05/2017,06/29/2016Pneumococcal Conjugate PCV 13110/04/2019,07/05/2017 Pneumococcal Polysaccharide LCTN0818/09/2021RSV, recombinant, protein subunit RSVpreF, adjuvant reconstitu, 120mcg/0.5mL, PF (Arexvy)08/25/2023 Family History * Patient is adopted RelationNameStatusCommentsFatherDeceasedMotherDeceased Social History Tobacco UseTypesPacks/DayYears UsedDateSmoking Tobacco: NpnvabWfhvvjycou314 Started: 1967Passive Smoke Exposure: Past Tobacco Cessation:Counseling Given: Yes Alcohol UseStandard Drinks/WeekCommentsYes0 (1 standard drink = 0.6 oz pure alcohol)VPRKRISAETUD5728 Health LiteracyAnswerDate RecordedHow often do you need [...] phone with family, friends, or neighbors?Twice a week03/03/2025How often do you get together with friends or relatives?Twice a week11/12/2024How often do you attend muslim or advent services?Patient tpnjayzw48/03/2025Do you belong to any clubs or organizations such as muslim groups, unions, fraternal or athletic anastacio ups, or school groups?No11/12/2024How often do you attend meetings of the clubs or organizations you belong to?Patient /03/2025re you , , , , never , or living with a partner?Living with fbjkrgz3711/12/2024UDIT-CAnswerDate RecordedQ1: How often do you have a drink containing alcohol?Patient fxnopbqw07/29/2025Q2: How many drinks containing alcohol do you have on a typical day when you are drinking?Patient miexrema32/29/2025Q3: How often do you have six or more drinks on one occasion? Patient zsqzejkf81/29/2025Overall Financial Resource Strain (CARDIA)AnswerDate RecordedHow hard is it for you to pay for the very basics like food, housing, medical care, and heating?Not hard at all11/12/2024PHQ-2AnswerDate Recorded Patient Health Questionnaire-2 Udxzz717[facility] [place] [facility] - Occupational Stress QuestionnaireAnswerDate RecordedDo you feel stress - tense, restless, nervous, or anxious, or unable to sleep at night because your mind is troubled all the time - these days?To some paqbsz9711/12/2024Exercise Vital SignAnswerDate RecordedOn average, how many days [...] steady place to sleep or slept in [place] (including now)?Patient oxuymrb3208/30/2023Housing Stability Vital SignAnswerDate RecordedIn the last 12 months, was there a time when you were not able to pay the mortgage or rent on time?No11/12/2024In the past 12 months, how many times have you moved where you were living?t any time in the past 12 months, were you homeless or living in a usp (including now)?No11/12/2024CommentsUnknownSex and Gender InformationValueDate RecordedSex Assigned at BirthNot on fileLegal CzpSwxusm28/15/2023 6:35 PM EDT Gender IdentityNot on fileSexual OrientationNot on file Last Filed Vital Signs Vital SignReadingTime TakenCommentsBlood Dfbkrfdw058/7207/18/2025 11:30 AM EST Qnwwb248407/18/2025 11:30 AM HYQZtbwcyztjmg03.9 ??C (98.4 ??F)08/02/2024 10:51 AM ESTRespiratory Gdoj231104/24/2025 9:41 AM EDTOxygen Hdgkcgktwz79%07/18/2025 11:30 AM ESTInhaled Oxygen Concentration--Wsmvfa943 kg (222 lb)07/18/2025 11:30 AM EST Coltfr289.8 cm (4' 9 )07/18/2025 11:30 AM ESTBody Mass Index48.04109/17/2024 11:30 AM EST Plan of Treatment DateTypeDepartmentCare Team (Latest Contact Info)Bkmzkgrybbx97/12/2026 11:00 AM ESTOffice Visit [facility] [address] [facility] [address] [place] [address] Renny Hansen MD [address] [facility] [address] [place] [address] Health MaintenanceDue DateLast DoneCommentsCOVID-19 Vaccine ( season) 503/05/2021, 11/18/2020, 10/20/2020, Additional history existsInfluenza Vaccine (#1)501/04/2025, 08/25/2023, 08/25/2023, Additional history existsMedicare Annual Wellness (AWV)6010/17/2024, 09/06/2023, 09/06/2023 Pneumococcal Vaccine: 65+ BgrigEsqvakslz40/09/2021, 08/04/2020, 07/05/2017 OelnmbepiasTbmqwppvoqjp82/25/2025, 03/07/2024, 03/07/2024, Additional history existsColorectal Cancer ScreeningDiscontinuedCT ColonographyDiscontinuedFIT-DNA DiscontinuedFITDiscontinuedFOBTDiscontinuedSigmoidoscopyDiscontinued Procedures Procedure NamePriorityDate/TimeAssociated DiagnosisCommentsCCF FERRITINRoutine 08/02/2025 1:05 PM EST [facility] AND EKURGbasqzc71/21/2025 1:05 PM EST [facility] CMP (CMP) (FOR REMOTE [facility] USE)Pcceria6508/02/2025 1:05 PM EST ALL CBC WITH AUTO CHMNHuwrrib76/21/2025 1:05 PM EST POCT URINALYSIS SUUVUKLBZtskbao61/06/2025 12:47 PM EST Acute cystitis with hematuria ALL LIPID PROFILE (FASTING)Tyorjfx6807/10/2025 10:58 AM EDT DKYKLHTJSQSBtctlsh42/25/2025 from Last 3 Months Results * (ABNORMAL) [facility] IRON AND TIBC (08/02/2025 1:05 PM EST)ComponentValueRef Range Test MethodAnalysis TimePerformed AtPathologist SignatureTBH IRON31.0(L)50.0 - 170.0 ug/dLTBHTBH TOTAL IRON BINDING BAKOWZUZ837.0250.0 - 450.0 ug/dLTBHTBH PERCENT IRON SATURATION8.0%TBHSpecimen (Source)Anatomical Location / LateralityCollection Method / VolumeCollection TimeReceived Time08/02/2025 1:05 PM EST08/02/2025 1:08 PM EST Narrative CLINISYNC - 08/02/2025 1:50 PM EST Authorizing ProviderResult TypeResult StatusGeneric External Data Provider CLINISYNCFinal ResultPerforming OrganizationAddressCity/State/ZIP CodePhone Number [facility] * [facility] FERRITIN (08/02/2025 1:05 PM EST)ComponentValueRef RangeTest Method Analysis TimePerformed AtPathologist FljibaiyeUYUQAWOJ34.08.0 - 252.0 ng/mLTBH Specimen (Source)Anatomical Location / LateralityCollection Method / Volume Collection TimeReceived Time08/02/2025 1:05 PM EST08/02/2025 1:08 PM EST Narrative CLINISYNC - 08/02/2025 2:08 PM EST Authorizing ProviderResult TypeResult StatusGeneric External Data Provider CLINISYNCFinal ResultPerforming OrganizationAddressCity/State/ZIP CodePhone Number [facility] * (ABNORMAL) [facility] CMP (CMP) (FOR REMOTE [facility] USE) (08/02/2025 1:05 PM EST) ComponentValueRef RangeTest MethodAnalysis TimePerformed AtPathologist HvlfarubjTNQCOR985978 - 145 mmol/LTBHPOTASSIUM4.23.5 - 5.1 mmol/LTBHCHLORIDE 17454 - 107 mmol/LTBHCARBON KLBZTFL60.921.0 - 32.0 mmol/LTBHANION GAP11.3TBH FMGEHRZ21645 - 106 mg/dLTBHBLOOD UREA QAMUXAEC13.07.0 - 18.0 mg/dLTBH CREATININE0.840.55 - 1.02 mg/dLTBHTBH EGFR-AF BOTSWANAN>60>=60 mL/min/1.73m 2 TBHTBH EGFR-NON AF BOTSWANAN>60>=60 mL/min/1.73m 2TBHBUN CREATININE RATIO21.4 TBHCALCIUM9.18.5 - 10.1 mg/dLTBHBILIRUBIN TOTAL0.30.2 - 1.0 mg/dLTBHASPARTATE AMINO YWVBYKAZXHM36(H)15 - 37 U/LTBHALANINE ANYKNZINOXWPVHYV1490 - 59 U/LTBH ALKALINE TMOMDFEJVWA737(H)46 - 116 U/LTBHTOTAL PROTEIN8.26.4 - 8.2 g/dLTBH ALBUMIN LEVEL3.43.4 - 5.0 g/dLTBHGLOBULIN4.8g/dLTBHALBUMIN GLOBULIN RATIO0.7 TBHSpecimen (Source)Anatomical Location / LateralityCollection Method / Volume Collection TimeReceived Time08/02/2025 1:05 PM EST08/02/2025 1:08 PM EST Narrative CLINISYNC - 08/02/2025 1:50 PM EST Authorizing ProviderResult TypeResult StatusGeneric External Data Provider CLINISYNCFinal ResultPerforming OrganizationAddressCity/State/ZIP CodePhone Number [facility] * (ABNORMAL) ALL CBC WITH AUTO DIFF (08/02/2025 1:05 PM EST)ComponentValueRef RangeTest MethodAnalysis TimePerformed AtPathologist SignatureTBH WBC8.94.0 - 11.0 10 3/uLTBHTBH RBC4.554.20 - 5.40 10 6/uLTBHTBH HGB12.312.0 - 16.0 g/dLTBH TBH HCT38.336.0 - 48.0 %TBHTBH MCV84.281.0 - 99.0 fLTBHTBH MCH27.026.7 - 34.0 pgTBHTBH MCHC32.129.9 - 35.2 g/dLTBHTBH RDW19.4(H)11.0 - 15.0 %TBHTBH JIB087 150 - 450 10 3/uLTBHTBH MPV8.8(L)9.5 - 13.5 fLTBHNEUTROPHILS PERCENT AUTO61.0 43.0 - 75.0 %TBHLYMPHOCYTES PERCENT AUTO27.920.5 - 60.0 %TBHMONOCYTES PERCENT AUTO8.71.7 - 12.0 %TBHTBH EO %1.60.9 - 7.0 %TBHBASOPHILS PERCENT AUTO0.70.2 - 2.0 %TBHIMMATURE GRANULOCYTES PCT AUTO0.10.0 - 0.5 %TBHNEUTROPHILS ABSOLUTE AUTO5.41.4 - 6.5 10 3/uLTBHLYMPHOCYTES ABSOLUTE AUTO2.51.2 - 3.8 10 3/uLTBH MONOCYTES ABSOLUTE AUTO0.80.3 - 0.8 10 3/uLTBHTBH EO #0.10.0 - 0.7 10 3/uLTBH BASOPHILS ABSOLUTE AUTO0.10.0 - 0.1 10 3/uLTBHIMMATURE GRANULOCYTES ABS AUTO 0.010.00 - 0.03 10 3/uLTBHSpecimen (Source)Anatomical Location / Laterality Collection Method / VolumeCollection TimeReceived Time08/02/2025 1:05 PM EST 08/02/2025 1:08 PM EST Narrative CLINISYNC - 08/02/2025 1:25 PM EST Authorizing ProviderResult TypeResult StatusGeneric External Data Provider CLINISYNCFinal ResultPerforming OrganizationAddressCity/State/ZIP CodePhone Number [facility] * POCT Urinalysis dipstick (07/18/2025 12:47 PM EST)ComponentValueRef RangeTest MethodAnalysis TimePerformed AtPathologist SignatureGlucose, UANegative Negative - 1999(110) ++++ mg/dLBilirubin, UATraceNegative - 4(70) +++ mg/dL Ketones, UANegativeNegative - 160(16) ++++ mg/dLSpec Grav, UA1.0301 - 1.03 Blood, UAPositiveNegative - 50 Shadi/mcLComment:moderatepH, UA6.05 - 9Protein, UA3+Negative - 1999(20) ++++ mg/dLUrobilinogen, UA0.20.2 - 12 mg/dLLeukocytes, UATraceNegative - 500+++ Rosette/mcLNitrite, UANegativeNegative - PositiveSpecimen (Source)Anatomical Location / LateralityCollection Method / VolumeCollection TimeReceived OzwvYzlta15/06/2025 12:47 PM EST Narrative Authorizing ProviderResult TypeResult StatusDawest Hansen MDPOINT OF CARE TEST ENTER/EDIT ORDERABLESFinal Result * ALL LIPID PROFILE (FASTING) (07/10/2025 10:58 AM EDT)ComponentValueRef Range Test MethodAnalysis TimePerformed AtPathologist NrchavhpxNGLAYQJQFRZRU28<=150 mg/jIEUINKTLVKFKDXK461<=200 mg/dLTBHHDL XOEBBPEDZBA6263 - 60 mg/dLTBHComment: > or =60 mg/dl - LOW CARDIOVASCULAR RISK <40 mg/dl - HIGH CARDIOVASCULAR RISK LDL CHOLESTEROL BQTCOVGFVQ19.8mg/dLTBHComment: <100 mg/dl OPTIMAL 100-129 mg/dl NEAR OR ABOVE OPTIMAL 130-159 mg/dl BORDERLINE HIGH 160-189 mg/dl HIGH >190 mg/dl VERY HIGH VLDL OZNVHSTKOUX25.2mg/dLTBHCHOL HDL RATIO2.4TBHComment: 3.3 - 4.4 ?? LOW [...] recommended. Narrative Authorizing ProviderResult TypeResult StatusEleanor Evans Hemmer PAHEAL MAINTENANCE Final Result from Last 3 Months Insurance * Guarantor: Breann Starks TAccount TypeRelation to PatientDate of BirthPhone Billing AddressPersonal/RnhchbIedn66/21/1946 [address] [address] Care Teams Team MemberRelationshipSpecialtyStart DateEnd Renny Hansen MD [address] [address] PCP - GeneralInternal Medicine09/19/24 Renny Hansen MD [address] [facility] [address] [place] [address] PCP - Medical [place]09/12/2511 Lisa Ramirez LPN [address] [address] 12/05/24
--- OUTSIDE RECORDS SUMMARY | 2025-08-28 10:23 | XMS_ITS | Clinical Summary ---
Author Organization [facility] Address [address] [place] [address] Care Team Providers Care Flight Simulator Teacher Name Role Phone Renny Hansen MD Primary Care Provider [phone] Balta Cardenas DO Unavailable [phone] Allergies Active AllergyReactionsCriticalityNoted RcupKxkjcubyLmjastvgLzvfMoc04/11/2025 Medications MedicationSigDispense QuantityRefillsLast FilledStart DateEnd DateStatus cholecalciferol [...] by mouth two times daily. 180 tablet /ctive spironolactone (Aldactone) 25 mg tablet Indications:Edema, unspecifiedTake 1 tablet (25 mg) by mouth in the morning. 90 tablet 5Active promethazine-codeine (Phenergan W/Codeine) 6.25-10 mg/5 mL syrup Take 5 mL by mouth every 6 (six) hours if needed.5Active penicillin v potassium (Veetid) 500 mg tablet Indications: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Take 1 tablet (500 mg) by mouth Twice daily at 6am and 6pm. 120 tablet Expired Active Problems ProblemNoted DateDiagnosed DateDisc degeneration, /28/2025Lumbar disc herniation with hfkpqndouolax96/28/2025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02/22/2025HF (congestive heart failure)09/24/2024History of ulcer wqhommw6909/24/2024Positive fecal occult blood test09/24/2024 Mizjhdmfvvgpll41/13/2025Gastroesophageal reflux disease without esophagitis 08/16/2024ulmonary wsbtsagzuvtz89/06/2024Obstructive sleep apnea syndrome 07/18/2024bnormal CT scan, neck07/05/2024nemia due to multiple mechanisms 07/05/2024xillary hvwquuwqkczjhot49/24/2024egenerative disc disease, cervical 07/05/2024Irritable bowel mcjiacgt15/24/2024Sigmoid zflewirghnvrlu88/24/2024Iron deficiency anemia due to chronic blood loss03/12/2024ardiac pacemaker in situ 01/19/2024iastolic ktmqcgkaabm79/09/2024rthritis of right acromioclavicular joint/losed fracture of fifth metatarsal bone11/07/2023 01/17/2024ontusion of left cxignupa34Impingement syndrome of right lseszaxm07/03/2024Shoulder pain10/17/2023cute pain of left knee /rthritis of left shoulder bshtyw89/hronic bilateral low back pain with zydznrgq16/03/2024 Overview (01/17/2024): Last Assessment & Plan: Chronic LBP with bilateral radiculopathy. MRI shows multilevel degenerative changes, worse at L4-5. Could not tolerate gabapentin and lyrica Patient had spidural spinal injection and that seems to be helping her pain. Pain is reasonably controlled. Monitor. Medicare annual wellness visit, wwqqaehkko74/26/202305/03/2024 Overview (01/17/2024): Last Assessment & Plan: Patient here for medicare wellness. Doing well overall other than chronic back pain. Upto date on Colon Cancer screening, breast cancer screening. Reviewed medications, counseled on lifestyle measures, importance of compliance. Vitamin D jyejmihhye14/20/2023Venous iypkketodggfs51/20/2023Steatosis of liver 03/01/2023 Overview (03/01/2023): non alcoholic Spinal /20/2023astric ulcer03/01/2023Osteoarthritis of lumbar spine 03/01/2023Osteoarthritis of both knees03/01/20234929Ehnyrooxwuya07/20/2023Herpes gfjtab1203/01/2023 Overview (03/01/2023): 05/2019 Cervical mzhzcenmqxeyl84/20/2023aroxysmal A-fib11/18/2022 Assessment & Plan (11/18/2022 10:55 AM EST): -device check in may 2022 <1% AF, had 1 mode switch which lasted 6 seconds -will have her get device check to assess AF burden -[id number]-FWEq 3 -Continue Xarelto 20 mg daily, continue propafenone to 25 mg 3 times a day Sinus node xakdkvtrygs55/26/2021 Assessment & Plan (11/18/2022 10:55 AM EST): - S/p PPM [employer] -We will have her scheduled for device check Nbbwswz0012/29/2012 Assessment & Plan (11/18/2022 10:56 AM EST): Obesity is slightly improving -She was to 255 pounds last visit and today she is 241 pounds -Advised to continue working on weight loss and lifestyle changes Essential uaearyttpkeq20/03/2012 Assessment & Plan (11/18/2022 10:54 AM EST): Hypertension is stable -ct medications: aldactone, verapamil, lasix 20mg -managed per PCP Malaise and aohdnle6001/13/2012Disorder of bursae of shoulder emynfy1601/12/2012 Chronic obstructive lung ainfezo7901/12/2012therosclerosis of ione coronary artery of ione heart without angina abqvfnsl51/02/2012 Assessment & Plan (11/18/2022 10:53 AM EST): Coronary artery disease is stable -no CP or LEA -last cath 2010, mild disease no PCI / stent -continue medications Diaphragmatic zrnnug2201/12/20123190Ccgxf45/02/2012Paroxysmal supraventricular qtglkalsnys46/02/2012 Resolved Problems ProblemNoted DateDiagnosed DateResolved DateAcute on chronic diastolic (congestive) heart iszqdbg57/Premature beats02/04/2012 07/10/2025 Encounters DateTypeDepartmentCare JtuhTxpzcbgzvdm14/04/2025 2:15 PM ESTAncillary Procedure [facility] [address] [place] [address] Encounter for implantable defibrillator reprogramming or check07/10/2025 1:40 PM EDTOffice Visit [facility] [address] [place] [address] Kellie Alva MD Paroxysmal A-fib (CMS/HCC) (Primary Dx); Sinus node dysfunction (CMS/HCC); Cardiac pacemaker in situ; Atherosclerosis of ione coronary artery of ione heart without angina pectoris; Pulmonary hypertension (CMS/HCC); Pure hypercholesterolemia; Diastolic dysfunction; Simple chronic bronchitis (CMS/HCC); Obstructive sleep apnea jlzydvfy81/03/2025Orders Only [facility] Infectious Disease [address] [place] [phone] Ortega Hines MD 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) 06/14/2025Telephone [facility] Infectious Disease [address] [place] [phone] Rosemarie Mistry MA Med Yxmlkg2106/14/2025Refill [facility] Heart at [facility] [address] [facility] [place] [address] Roopa Mensah MA Edema, rmalolgtmhx78/18/2025Telephone [facility] Allergy & Immunology [address] [place] [phone] Wanda Hernandez MA from Last 3 Months Immunizations ImmunizationAdministration DatesNext DueInfluenza, High Dose Seasonal, Preservative Free08/06/2019Influenza, Seasonal, Quadrivalent, Adjuvanted 07/08/2022,08/20/2021,08/04/2020Influenza, Geuatacuofl60/24/2017,06/29/2016, 06/25/2015,07/12/2014,08/07/2013Influenza, seasonal,quadrivalent, preservative free06/12/2015Moderna SARS-CoV-2 Yxocybpwaly93/09/2021,1Pneumococcal Conjugate PCV 13110/04/2019,07/05/2017Pneumococcal Polysaccharide XMG566410/21/2020 Family History * Patient is adopted RelationNameStatusCommentsFatherDeceasedMotherDeceased Social History Tobacco UseTypesPacks/DayYears UsedDateSmoking Tobacco: NimkcgJwtbygjbyk5248 - 1999Smokeless Tobacco: Never Tobacco Cessation:Counseling Given: Not Answered Alcohol UseStandard Drinks/WeekCommentsYes0 (1 standard drink = 0.6 oz pure alcohol)OCCASIONALHumiliation, Afraid, Rape, and Kick questionnaireAnswerDate RecordedWithin the last year, have you been afraid of your partner or ex-partner?No11/27/2024Emotionally AbusedNot on file11/27/2024Physically Abused Not on 11/27/2024Sexually AbusedNot on 11/27/2024PHQ-2AnswerDate RecordedPatient Health Questionnaire-2 Dcjxe476UT Safety & Environment AnswerDate RecordedFear of Current or Ex-PartnerNot on 11/03/2023Emotionally AbusedNot on 11/03/2023hysically AbusedNot on 11/03/2023Sexually Abused Not on 11/03/2023hysically or Sexually AbusedNot on 11/03/2023 CommentsUnknownSex and Gender InformationValueDate RecordedSex Assigned at Kgadlf9105/15/2025 10:28 AM EDTLegal GutIuoder91/29/2022 10:18 PM EDTGender YtoygydsVvzkeu56/03/2025 10:28 AM EDTSexual OrientationHeterosexual or Straight 05/15/2025 10:28 AM EDT Last Filed Vital Signs Vital SignReadingTime TakenCommentsBlood Lrbxnijy019/6510 1:55 PM EDT Dynjt881007/10/2025 1:55 PM GWCRmhbcpjswgg20.9 ??C (98.4 ??F)05/15/2025 10:32 AM EDTRespiratory Rate--Oxygen Fgiricqgeq50%07/10/2025 1:55 PM EDTInhaled Oxygen Concentration--Uyjzzm423 kg (223 lb)07/10/2025 1:55 PM LRCJsorym724.9 cm (4' 11 )07/10/2025 1:55 PM EDTBody Mass Index45.041 1:55 PM EDT Plan of Treatment DateTypeDepartmentCare Team (Latest Contact Info)Nldtyukurwl00/04/2026 11:00 AM ESTFollow-Up [facility] Infectious Disease [address] [place] [phone] Ortega Hines MD [address] [facility] [address] Health MaintenanceDue DateLast DoneCommentsMedicare Annual Wellness (AWV) 8Adult Ffdlikw4111/30/1969Zoster Vaccines (1 of 2)11/30/1997COVID-19 Vaccine ( season)503/05/2021, 11/18/2020, 10/20/2020, Additional history existsInfluenza Vaccine (#1)501/04/2025, 08/25/2023, 07/08/2022, Additional history existsFall Risk Slqefcwds76/07/2025 Depression Mbcavlabk24/11/2024Pneumococcal Vaccine: 50+ YearsCompleted 08/20/2021, 08/04/2020, 07/05/20178194AdaziqcjdRzkjrozazgkt80/04/2025HIB Vaccines Aged OutNo longer eligible based on [...] IN CLINIC - PACEMAKER DUAL CHAMBER W/ LZQMLptghsr11/07/2025 11:37 AM EST Encounter for implantable defibrillator reprogramming or check ECG 12-ATCKXrmqvlu62/29/2025 5:14 PM EDT Paroxysmal A-fib (CMS/HCC) ECG 12-NMHRFgkswlx67/29/2025 2:27 PM EDT Paroxysmal A-fib (CMS/HCC) ECG 12 LEAD UNIT XIAPLFHOXNvncukm28/29/2025 2:17 PM EDT Paroxysmal A-fib (CMS/HCC) from Last 3 Months Results * CARDIAC DEVICE CHECK - IN CLINIC - PACEMAKER DUAL CHAMBER W/ PROG (07/19/2025 11:37 AM EST)Anatomical RegionLateralityModalityOtherSpecimen (Source) Anatomical Location / LateralityCollection Method / VolumeCollection Time Received Time Narrative 07/24/2025 3:34 PM EST Normal device function Authorizing ProviderResult TypeResult StatusDmitriy Mahan [facility] IMPLANTABLE CARDIAC DEVICE PROCEDURESFinal Result * ECG 12 lead (07/10/2025 5:14 PM EDT) Only the most recent of2 resultswithin the time period is included. Specimen (Source)Anatomical Location / LateralityCollection Method / Volume Collection TimeReceived Time Narrative Kellie Alva MD - 07/10/2025 5:14 PM EDT Atrial paced ventricular sensed rhythm, nonspecific T wave in V1-V3 Authorizing ProviderResult TypeResult StatusKellie SCHMITZ ORDERABLESFinal Result * ECG 12 lead unit performed (07/10/2025 2:17 PM EDT)Specimen (Source)Anatomical Location / LateralityCollection Method / VolumeCollection TimeReceived Time Narrative Authorizing ProviderResult TypeResult Hosea SCHMITZ ORDERABLESFinal Result from Last 3 Months Insurance Care Teams Team MemberRelationshipSpecialtyStart DateEnd Date Renny Hansen MD [address] [facility] [address] [place] [address] PCP - GeneralInternal Pucfxqnr07/6/24 Balta Cardenas DO [address] [place] [address] Referring Physician11/15/24
--- OUTSIDE RECORDS SUMMARY | 2025-08-28 10:23 | XMS_ITS | Clinical Summary ---
Author Organization [facility] Address [address] [place] [address] Phone Care Team Providers Care Film Mounter Name Role Phone Unavailable Primary Care Provider Unavailabl e Social History Tobacco UseTypesPacks/DayYears UsedDateSmoking Tobacco: Never Assessed CommentsUnknownSex and Gender InformationValueDate RecordedSex Assigned at Not on fileLegal YcfLyzndg47/02/2023 4:35 AM EDTGender IdentityNot on fileSexual OrientationNot on file Plan of Treatment Not on file
--- NOTE | 2025-08-28 10:54 | PM.CN ---
Consult Note: HPI Data of Consult Patient: known to practice within the last 3 years Consult date: 05/29/25 Requesting Physician: Claire Clement NP Primary Care Provider: FAVIAN LUNA Consult Narrative Reason for consult: chronic pain Narrative: Breann Starks a pleasant 79 year old female presents for evaluation of chronic low back, left shoulder, and right SIJ pain unresponsive to > 6 weeks of PT/HEP, heat, ice, tylenol. cannot take NSAIDs on eliquis. Pt utilizing baclofen 10mg TID PRN pain/spasms and hydrocodone-acetaminophen 5-325mg TID PRN for moderate to severe pain. denies side effects. Pt noting pain has overall been well controlled in regards to left shoulder, low back, and right SIJ. pain today 0/10, increasing at times to 8/10. notes increased pain by end of day. continues to be significantly limited in left shoulder and LUE rom and function, did not attempt PT since last visit stating they did not contact her. cc:: CC: Claire Clement NP Review of Systems ROS Musculoskeletal Denies: back pain, extremity pain or joint pain PFSH [facility] Medical History (Updated 01/27/25 @ 10:54 by Holley Johnson MD) Arthritis ?M19.90 - Unspecified osteoarthritis, unspecified site (ICD-10) Chronic obstructive pulmonary disease ?J44.9 - Chronic obstructive pulmonary disease, unspecified (ICD-10) Peptic ulcer ?K27.9 - Peptic ulcer, site unspecified, unspecified as acute or chronic, without hemorrhage or perforation (ICD-10) Dyspnea on exertion ?R06.09 - Other forms of dyspnea (ICD-10) Anemia ?D64.9 - Anemia, unspecified (ICD-10) Hypertension ?I10 - Essential (primary) hypertension (ICD-10) Extremity edema ?R60.0 - Localized edema (ICD-10) Congestive heart failure ?I50.9 - Heart failure, unspecified (ICD-10) Atrial fibrillation ?I48.91 - Unspecified atrial fibrillation (ICD-10) Shoulder pain ?M25.519 - Pain in unspecified shoulder (ICD-10) Fatty liver ?K76.0 - Fatty (change of) liver, not elsewhere classified (ICD-10) History of shingles ?Z86.19 - Personal history of other infectious and parasitic diseases (ICD-10) Osteoarthritis ?M19.90 - Unspecified osteoarthritis, unspecified site (ICD-10) Pacemaker ?Z95.0 - Presence of cardiac pacemaker (ICD-10) Hiatal hernia ?K44.9 - Diaphragmatic hernia without obstruction or gangrene (ICD-10) Low back pain ?M54.50 - Low back pain, unspecified (ICD-10) Irregular heart beat ?I49.9 - Cardiac arrhythmia, unspecified (ICD-10) Surgical History History of shoulder replacement ?Z96.619 - Presence of unspecified artificial shoulder joint (ICD-10) S/P rotator cuff repair ?Z98.890 - Other specified postprocedural states (ICD-10) History of colonoscopy ?Z98.890 - Other specified postprocedural states (ICD-10) S/P YANELI-BSO ?Z90.710 - Acquired absence of both cervix and uterus (ICD-10) ?Z90.722 - Acquired absence of ovaries, bilateral (ICD-10) ?Z90.79 - Acquired absence of other genital organ(s) (ICD-10) H/O cardiac catheterization ?Z98.890 - Other specified postprocedural states (ICD-10) H/O arthroscopy of shoulder ?Z98.890 - Other specified postprocedural states (ICD-10) H/O arthroscopy of knee ?Z98.890 - Other specified postprocedural states (ICD-10) History of appendectomy ?Z90.49 - Acquired absence of other specified parts of digestive tract (ICD-10) History of total knee arthroplasty ?Z96.659 - Presence of unspecified artificial knee joint (ICD-10) Social History Within the past year, how often did you have a drink containing alcohol: monthly or less Smoking status: Former smoker Non-prescribed substance use: denies use Previous occupational history: retired Highest level of school completed/degree received: high school graduate Little interest or pleasure in doing things: not at all Feeling down, depressed, or hopeless: not at all Meds Home Medications and Allergies Home Medications ?Medication ?Instructions ?Recorded ?Confirmed ?Type cholecalciferol (vitamin D3) 125 5,000 unit PO DAILY 02/16/23 05/20/25 History mcg (5,000 unit) tablet (Vitamin D3) flecainide 100 mg tablet 100 mg PO Q12H 02/16/23 05/20/25 History omeprazole 40 mg capsule,delayed 40 mg PO DAILY 02/16/23 05/20/25 History release spironolactone 25 mg tablet 25 mg PO DAILY 02/16/23 05/20/25 History (Aldactone) verapamil 180 mg tablet,extended 180 mg PO Q12H 02/16/23 05/20/25 History release (Calan SR) apixaban 5 mg tablet (Eliquis) 5 mg PO BID 05/11/23 05/20/25 History furosemide 40 mg tablet 40 mg PO DAILY 03/01/24 05/20/25 History naloxone 4 mg/actuation nasal 4 mg intranasal Q3M PRN opioid 05/17/24 04/22/25 Rx spray (Narcan) overdose #2 ea hydrocodone 5 mg-acetaminophen 325 1 tab PO TID PRN pain #90 tabs 10/26/24 05/20/25 Rx mg tablet penicillin V potassium 500 mg mg 02/11/25 History tablet baclofen 10 mg tablet 10 mg PO TID #90 tabs 03/06/25 05/20/25 Rx ipratropium 0.5 mg-albuterol 3 mg ml inhalation 04/22/25 History (2.5 mg base)/3 mL nebulization soln hydrocodone 5 mg-acetaminophen 325 1 tab PO Q8H PRN pain #90 tabs 07/08/25 Rx mg tablet baclofen 10 mg tablet 10 mg PO TID PRN muscle spasm #90 08/14/25 Rx tabs Allergies Allergy/AdvReac Type Severity Reaction Status Date / Time No Known Drug Allergies Allergy Verified 05/20/25 11:35 Exam Constitutional Documenting provider has reviewed patient's vital signs: yes Common normals: no apparent distress, oriented x3 and alert General appearance: cooperative HENMT Common normals: normocephalic, hearing grossly normal bilaterally and moist oral mucous membranes Head and scalp: normocephalic Eye Common normals: PERRL Pupil: PERRL Neck & C-Spine Common normals: full ROM General: normal visual inspection Chest Common normals: inspection of chest normal Respiratory Common normals: normal respiratory effort, no retractions and no use of accessory muscles Back & Pelvis Lumbar spine/lower back: straight leg raise negative bilaterally; ROM not limited, no pain with ROM and no lumbar spinal tenderness Sacroiliac joints: SI joints normal Other: strength 5/5 in BLE sensation intact BLE Extremity Other: left shoulder limited ROM with overhead movement, pain with adduction/abduction and rotation. Neuro Common normals: oriented x3 Sensorium/orientation: alert Psych Common normals: mental status grossly normal, thought process normal, cooperative, affect normal, speech normal and activity/motor behavior normal Speech: normal speech Thought process: normal thought process Results Additional Findings Additional findings: If on a controlled substance or opioids, I have checked an [place] report on this patient and there are no aberrancies noted in the prescribing history.??If on a controlled substance or opioid a drug screen was completed and reviewed within the last year, and if there has not been a drug screen completed we ordered one today to monitor higher risk, state monitored pain medication use. As part of providing excellent, safe, comprehensive care, the following was completed at our patient's visit: 1. A medication reconciliation and review to ensure accurate knowledge of current/active medications, including asking our patients to inform us about any qlzo-yut-qugcmbe medications or herbal remedies/nutritional supplements/alternative remedies. 2. A review to specifically ensure our patients have had annual screening for screening for depression, screening for tobacco use, and screening for unhealthy alcohol use. For concerning screenings had a discussion with the patient, provided patient education, and recommended follow-up with primary care provider when appropriate. If patient noted with a risk of falling, they received education on strength, gait, and balance training to prevent future risk of falling. Portions of this note may have been carried over from the previous visit and updated as appropriate. Please note this office utilizes paper charting in addition to the electronic medical record. A list of current medications, vitals, and PMH is available there as the clinical staff outside of myself do not have access to [employer] charting during the clinic day operations. As part of providing quality comprehensive care the current medications, vitals, and PMH were reviewed in the paper chart. Assessment and Plan Assessment and Plan (1) Left shoulder pain: (2) Sacroiliitis: (3) Lumbar stenosis with neurogenic claudication: (4) Lumbar spondylosis: (5) Chronic use of opiate drug for therapeutic purpose: Plan pain well controlled, encouraged prn use of norco. continue norco 5-325mg TID PRN moderate to severe pain. continue baclofen 10mg TID PRN pain/spasms continue HEP as tolerated, refer to formal PT for left shoulder pain/limited ROM f/u 3 months, sooner if needed
== END 2025-08-28 10:21 | disposition home or self-care (01) ==
LOC: PM 10:21
PROVIDERS: PCP Internal Medicine; Visit Provider Nurse Practitioner
DX: M25.512 Pain in left shoulder (principal); M46.1 Sacroiliitis, not elsewhere classified; M48.062 Spinal stenosis, lumbar region with neurogenic claudication; M47.816 Spondylosis without myelopathy or radiculopathy, lumbar region; Z79.891 Long term (current) use of opiate analgesic
CPT/HCPCS: G0463